=== PATIENT | female | born 1960 | race Caucasian/White ===

== ENCOUNTER 2024-11-15 14:20 | Outpatient (CLI) | payer MEDICARE, MEDICAID, SELFPAY ==
[2024-11-15 15:06] LABS: Hematocrit 26.4 % (37.0-47.0); Hemoglobin 8.5 g/dL (12.2-16.2); Mean Corpuscular HGB Conc 32.2 g/dL (31.8-35.4); Mean Corpuscular Hemoglobin 31.8 pg (27.0-31.2); Mean Corpuscular Volume 98.8 fl (81-99); Platelet Count 65 K/mm3 (142-424); Red Blood Count 2.67 M/mm3 (4.20-5.40); Red Cell Distribution Width 16.4 % (11.5-17.5); White Blood Count 3.8 K/mm3 (4.8-10.8)
[2024-11-15 15:14] LABS: INR 1.64 (0.9-1.1); Prothrombin Time 17.5 seconds (10.1-12.5)
[2024-11-15 15:30] LABS: Albumin Level 3.1 g/dl (3.5-5.0); Chloride 107 mmol/L (98-107); Potassium 3.6 mmoL/L (3.5-5.1); Sodium 138 mmol/L (136-145)
[2024-11-15 15:33] LABS: Alanine Aminotransferase 37 U/L (12-78); Albumin/Globulin Ratio 0.8 (1.1-1.8); Alkaline Phosphatase 288 U/L (38-126); Anion Gap 12.6 mEq/L (5-15); Aspartate Amino Transferase 91 U/L (14-36); Bilirubin,Total 2.5 mg/dl (0.2-1.3); Blood Urea Nitrogen 22 mg/dl (7-17); Calcium 8.8 mg/dl (8.4-10.2); Carbon Dioxide 22 mmol/L (22.0-30.0); Estimated Glomerular Filt Rate 35 ml/min (>60); GFR (African American) 43 ML/MIN (>60); Globulin 3.9 g/dL (1.3-3.2); Glucose 220 mg/dl (74-100)
== END 2024-11-15 23:59 | disposition home or self-care (01) ==
LOC: LAB 14:24
PROVIDERS: Visit Provider Internal Medicine
DX: K72.90 Hepatic failure, unspecified without coma (principal)
CPT/HCPCS: 36415; 80053; 85027; 85610; 85730

== ENCOUNTER 2025-06-23 17:21 | Emergency (ER) | payer MEDICARE, MEDICAID, SELFPAY ==
--- OUTSIDE RECORDS SUMMARY | 2014-04-02 05:08 | XMS_ITS | Continuity of Care Document ---
Author Organization [facility] Address [address] [place] [address] Phone Care Team Providers Care Mobile Application Engineer Name Role Phone Kristian Ayala MD Unavailable [...] Active Procedures Procedure Date REFRACTION OFFICE/OUTPATIENT VISIT, [facility] Advance Directives Directive Yes / No Effective Date File Name No Information Encounters Encounter Description Practice Location Reason(s) For Visit Diagnoses Date Provider OFFICE/OUTPATI ENT VISIT, [facility] , [address] [place] [address], [address], [place] tel:[phone] [place] [facility] diabetes (chief complaint)d ecreased vision (chief complaint) Diabetes Mellitus, Adult Onset, UncontrolledSenile nuclear sclerosis Jamie Townsend. [address] [facility], [place], [address]. tel:[phone] Family History Family Member Type Diagnosis Age At Onset Father Problem (finding) degenerative disorder o f macula Father Problem (finding) cataract Payers Payer name Insurance type Covered republican ID Annalee de leon(s) [facility] Community Plan CI [id number] Social History Type Description Quantity Date Captured [...]
--- OUTSIDE RECORDS SUMMARY | 2023-07-07 19:50 | XMS_ITS | Encounter Summary ---
Author Organization [facility] Address [address] [place] [address] Care Team Providers Care Geology Scientist Name Role Phone Taina Lyles APRN Primary Care Provider [phone] Reason for Referral * Hospital - Outpatient (Routine) - Closed Specialty Diagnoses / Procedures Referred By Eder zhu Referred To Contact Diagnoses JONATHAN (obstructive sleep apnea) Obesity (BMI 30-39.9) Nocturnal hypoxia Procedures Polysomnography 4 or More Parameters With CPAP Whitney Agarwal MD [address] [place] [address] Phone: tel: fax: Referral ID Status Reason Start Date Expiration Date Visits Re quested Visits Authorized [id number] Closed 04/14/2023 04/13/2024 1 1 Reason for Visit * Hospital - Outpatient (Routine) - Closed Specialty Diagnoses / Procedures Referred By Eder zhu Referred To Contact Diagnoses JONATHAN (obstructive sleep apnea) Obesity (BMI 30-39.9) Nocturnal hypoxia Procedures Polysomnography 4 or More Parameters With CPAP Whitney Agarwal MD [address] [place] [address] Phone: tel: fax: Referral ID Status Reason Start Date Expiration Date Visits Re quested Visits Authorized [id number] Closed 04/14/2023 04/13/2024 1 1 Encounter Details Date Type Department Care Team (Latest Contact Info) Description 07/07/2023 7:50 PM EDT Hospital Encounter [facility] PULPING MACHINE OPERATOR DIAG CTR [address] [place] [address] Whitney Agarwal MD [address] [facility] [address] [place] [address] JONATHAN (obstructive sleep apnea); Obesity [...] place to sleep or slept in a skilled nursing (including now)? No 12/01/2022 Abuse Screen Answer [...] SLEEP MEDICINE - 07/09/2023 12:[address] [facility] Pulmonary, Critical Care, and Sleep Medicine Whitney Agarwal M.D. [address] [facility] [address] Medical Office [address]. [address]. CPAP/BiPAP TITRATION INTERPRETATION Date of Study: 07/07/2023 [...] feel free to contact the office of [facility] Pulmonary, Critical Care and Sleep Medicine at [phone], if you have any questions about this [...] documented as of this encounter Care Teams Geology Scientist Relationship Specialty Start Date End Date Taina Lyles APRN PCP - General Nurse Practitioner 12/30/22 documented as of this encounter
--- OUTSIDE RECORDS SUMMARY | 2025-04-24 15:30 | XMS_ITS | Encounter Summary ---
Author Organization [facility] Address [address] [place] [address] Care Team Providers Care Signaling Design Engineer Name Role Phone Lea Fernando Unavailable [phone] Rachel Ray YARD ASSOCIATE Unavailable [phone] Alvarez Zimmer MD Primary Care Provider [phone] Reason for Visit * Reason Comments Diatetic foot care * Consultation (Routine) - Closed Specialty Diagnoses / Procedures Referred By Eder zhu Referred To Contact Podiatry Diagnoses Toe pain, left Type 2 diabetes mellitus with hyperosmolarity without coma, with long-term current use of insulin (CMS/HCC) Kacie Buckley, [place] [address] Phone: tel: fax: Referral ID Status Reason Start Date Expiration Date V isits Requested Visits Authorized [id number] Closed Specialty Services Required 01/25/2025 07/27/2026 1 1 Encounter Details Date Type Department Care Team (Late st Contact Info) Description 04/24/2025 3:30 PM EDT Consult [facility] [address] [place] [address] Sharif Moreno, DPM [address] [facility] [address] [place] [address] Diabetic peripheral neuropathy (CMS/HCC) (Primary Dx); Difficulty walking; Onychodystrophy Social History Tobacco Use Types Packs/Day Years Used Date Smoking Tobacco: Never Passive Smoke Exposure: Never Smokeless Tobacco: Never Tobacco Cessation:Counseling Given: Not Answered Alcohol Use Standard Drinks/Week Comments Not Currently 0 (1 standard drink = 0.6 oz pur e alcohol) Humiliation, Afraid, Rape, and Kick questionnair e Answer Date Recorded Within the last year, have y ou been afraid of your partner or ex-partner? No 03/06/2025 Within the last year, have y ou been humiliated or emotionally abused in other ways by your partner or ex-partner? No Within the last year, have y ou been kicked, hit, slapped, or otherwise physically hurt by your partner or ex-partner? No 03/06/2025 Within the last year, have y ou been raped or forced to have any kind of sexual activity by your partner or ex-partner? No 03/06/2025 Social Connection and Isolation Panel Answer Date Recorded In a typical week, how many times do you talk on the phone with family, friends, or neighbors? Three times a week 01/10/2025 How often do you get togethe r with friends or relatives? Three times a week 01/10/2025 How often do you attend [facility] or latter-day services? Patient unable to answer 01/10/2025 Do you belong to any clubs o r organizations such as islam groups, unions, fraternal or athletic groups, or school groups? Patient unable to answer 01/10/2025 How often do you attend meet ings of the clubs or organizations you belong to? Patient unable to answer 01/10/2025 Are you , , di vorced, , never , or living with a partner? 01/10/2025 AUDIT-C Answer Date Recorded Q1: How often do you have a drink containing alcohol? Patient unable to answer 01/10/2025 Q2: How many drinks containi ng alcohol do you have on a typical day when you are drinking? Patient does not drink Q3: How often do you have si x or more drinks on one occasion? Patient unable to answer 01/10/2025 Overall Financial Resource Strain (CARDIA) Answe r Date Recorded How hard is it for you to pa y for the very basics like food, housing, medical care, and heating? Not very hard 01/10/2025 PHQ-2 Answer Date Recorded Patient Health Questionnaire-2 Score 2 04/10/2025 [facility] Occupat ional Health - Occupational Stress Questionnaire Answer Date Recorded Do you feel stress - tense, restless, nervous, or anxious, or unable to sleep at night because your mind is troubled all the time - these days? Not at all 01/10/2025 Exercise Vital Sign Answer Date Recorde d On average, how many days pe r week do you engage in moderate to strenuous exercise (like a brisk walk)? 0 days 01/10/2025 On average, how many minutes do you engage in exercise at this level? 0 min 01/10/2025 Hunger Vital Sign Answer Date Recorded Within the past 12 months, y ou worried that your food would run out before you got the money to buy more. Never true 03/06/20 Within the past 12 months, t he food you bought just didn't last and you didn't have money to get more. Never true 03/06/2025 PRAPARE - Transportation Answer Date Re corded In the past 12 months, has l ack of transportation kept you from medical appointments or from getting medications? No 02/19 In the past 12 months, has l ack of transportation kept you from meetings, work, or from getting things needed for daily living? No 03/06/2025 Housing Stability Vital Sign Answer Rajesh e Recorded In the last 12 months, was t here a time when you were not able to pay the mortgage or rent on time? No 08/29/2024 Number of Places Lived in the Last Year Not on f ile 08/29/2024 In the last 12 months, was t here a time when you did not have a steady place to sleep or slept in a chcf (including now)? Yes 08/29/2024 PHQ-9 Answer Date Recorded Patient Health Questionnaire-9 Score 0 03/06/2025 Housing Stability Vital Sign Answer Rajesh e Recorded In the last 12 months, was t here a time when you were not able to pay the mortgage or rent on time? No 03/06/2025 In the past 12 months, how m any times have you moved where you were living? 1 03/06/2025 At any time in the past 12 m [facility], were you homeless or living in a chcf (including now)? No 03/06/2025 CAGE ASSESSMENT Answer Date Recorded Cage unable to access Not on file 10/22/2024 Cage max number of drinks Not on file 2023 Cage Beverages a week Not on file 10/22/2024 Have you ever felt you should CUT down on your d rinking? 0 10/22/2024 Have you been ANNOYED by people criticizing your drinking? 0 10/22/2024 Have you felt GUILTY about your drinking? 0 10/22/2024 Have you had a drink first t kennedy in the morning ([employer]) to steady your nerves or to get rid of a hangover? 0 10/22/2024 CAGE Questionnaire Score 0 024 Utilities Answer Date Recorded In the past 12 months has th STYLIGHT, gas, oil, or water company threatened to shut off services in your home? No 03/06/2025 Education Answer Date Recorded What is the highest level of school you have completed or the highest degree you have received? Associate degree: occupational, technical, or vocational program 08/29/2024 Comments No Sex and Gender Information Value Date Recorded Sex Assigned at Female 06/22/2022 9:33 AM EDT Legal Sex Female 8:01 PM EDT Gender Identity Female 06/22/2022 9:33 AM EDT Sexual Orientation Straight 06/22/2022 9: 33 AM EDT Occupation Industry Job Start Date Job End Date Disability Not on file Not on file Not on file documented as of this encounter Last Filed Vital Signs Vital Sign Reading Time Taken Comments Blood Pressure 120/70 04/24/2025 3:10 PM EDT Pulse 64 04/24/2025 3:10 PM EDT Temperature - - Respiratory Rate - - Oxygen Saturation - - Inhaled Oxygen Concentration - - Weight 77.6 kg (171 lb 1.2 oz) 04/24/2025 3:10 P M EDT Height 165.1 cm (5' 5 ) 04/24/2025 3:10 PM EDT Body Mass Index 28.47 04/24/2025 3:10 PM EDT documented in this encounter Miscellaneous Notes * Progress Notes - Sharif Moreno DPM - 04/24/2025 3:30 PM EDT Subjective Patient ID: Gabi Zimmer is a 64 y.o. female [facility] HPI Patient here for foot check. 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 Has never had any ulcers. Previously had a spot on her left big toe that has since disappeared. Has difficulty trimming nails. Notes some neuropathy. Last Reported A1C: Lab Results Component Value Date HGBA1C 6.2 (H) 01/08/2025 Last visit with Kacie Buckley APRN, on 01/08/25 ROS: Otherwise negative or noncontributory to chief complaint except as noted in history of present illness Past Medical History[1] Current Medications[2] No surgery found No surgery found Objective Psychological: Appropriate mood and affect HENT: Normal Eyes: EOMI Cardiac: Well perfused, extremities pink Respiratory: nonlabored respirations on room air, symmetric chest rise and fall. .Physical Exam: MSK: Tenderness: Absent to: Any pedal structure Gait:Normal, unassisted Muscle testin/5 for all pedal musculature b/l ROM: WNL for all major pedal joints Deformity: No gross deformity noted Neuro: Light touch Intact Protective sensation intact to all areas with use of monofilament. Vibratory sensation Intact Vasc: DP and PT pulses b/l: Palpable CFT is Brisk to all present digits Edema Absent Derm: Skin is grossly warm and dry No open wounds noted. Nails are:thickened, dystrophic, and discolored Hair: is absent on the foot Skin changes: thin, shiny, and atrophic ASSESSMENT: Encounter Diagnoses: Diabetic peripheral neuropathy (CMS/HCC) Difficulty walking Onychodystrophy PLAN: Rx for capsacin Talk to endo/primary for new DM shoe form RTC in 6 mo. Nails debrided x 10 .Procedure: At risk nail care. Patient would benefit from nail debridement today. Consent was obtained verbally by the patient. Risks and benefits were discussed with the patient. Possible risks include: Bleeding, swelling, infection. Benefits include nail deformity correction, reducing risk of infection. 10 nails debrided with sterile nail nippers using aseptic technique. Nails filed to ensure no residual roughness. Patient tolerated procedure well with no complications. Lengthy diabetes education/counseling was conducted, which involved a discussion about neuropathy and its implications and symptoms. Patient was encouraged to strictly monitor daily blood glucose andfeet for any concerning changes. Encouraged the use of supportive shoe gear. _ Patient demonstrated reasonable understanding of the current condition, treatment options, and prognosis. All questions were welcomed and answered to the patient's satisfaction. This note was partially generated using [employer] Direct system, and there may be some incorrect words, spellings, and punctuation that were not noted in checking the note before saving. [1] Past Medical History: Diagnosis Date ADHD (attention deficit hyperactivity disorder) Allergic Anxiety disorder, unspecified Anxiety Bleeding gums Blood in urine Cataract Chronic kidney disease Cirrhosis (CMS/HCC) Colon cancer screening 09/20/2019 Added automatically from request for surgery [id number] Coronary artery disease Depression 1995 Diabetes mellitus type 2 in obese 04/22/2015 Diabetic nephropathy (CMS/HCC) Dry mouth GERD (gastroesophageal reflux disease) Headache Heart murmur HL (hearing loss) Hypoparathyroidism Inflammatory bowel disease Irritable bowel syndrome Jaw pain Obesity Osteoporosis Peptic ulceration Personal history of other diseases of the digestive system History of hepatic disease Personal history of other diseases of the digestive system History of stomach ulcers Personal history of other diseases of the nervous system and sense organs History of sleep apnea Personal history of other endocrine, nutritional and metabolic disease History of diabetes mellitus Personal history of other mental and behavioral disorders History of depression Personal history of urinary (tract) infections History of bladder infections Pre-liver transplant, listed Pure hypercholesterolemia, unspecified High cholesterol Sleep apnea Thyroid condition Type 2 diabetes mellitus Unspecified asthma, uncomplicated Asthma Unspecified osteoarthritis, unspecified site Arthritis [2] Current Outpatient Medications: Abaloparatide (Tymlos) 3120 MCG/1.56ML solution pen-injector, Inject 80 mcg under the skin daily., Disp: 1.56 mL, Rfl: 2 azelastine (Astelin) 0.1 % nasal spray, Administer 1 spray into each nostril 2 times a day. Use in each nostril as directed, Disp: 30 mL, Rfl: 12 B-D ULTRAFINE III SHORT PEN 31G X 8 MM [facility], , Disp: , Rfl: Blood Glucose Monitoring Suppl (Blood Glucose Monitor System) w/Device kit, Test blood sugars twicea day. Dx E11.65, Disp: 1 kit, Rfl: 0 calcitriol (Rocaltrol) 0.25 MCG capsule, Take 1 capsule by mouth daily., Disp: 30 capsule, Rfl: 2 calcium carbonate EX (Tums E-X) 750 MG chewable tablet, Chew 1 tablet (750 mg) 1 (one) time each day., Disp: , Rfl: cetirizine (ZyrTEC) 10 MG tablet, Take 1 tablet by mouth daily., Disp: 30 tablet, Rfl: 2 cholecalciferol (Vitamin D-3) 25 MCG (1000 UT) tablet, Take 1 tablet by mouth daily., Disp: 90 tablet, Rfl: 2 ciprofloxacin (Cipro) 500 MG tablet, Take 1 tablet by mouth daily., Disp: 90 tablet, Rfl: 1 ergocalciferol (Vitamin D-2) 1.25 MG (05889 UT) capsule, Take 1 capsule by mouth 1 time per week., Disp: 8 capsule, Rfl: 3 fluticasone (Flonase) 50 MCG/ACT nasal spray, Administer 1 spray into each nostril daily. Shake gently. Before first use, prime pump. After use, clean tip and replace cap., Disp: 16 g, Rfl: 0 furosemide (Lasix) 20 MG tablet, Take 1 tablet (20 mg) by mouth 1 (one) time each day., Disp: 30 tablet, Rfl: 2 glucose blood test strip, Use to test blood sugars twice a day E11.65, Disp: 100 each, Rfl: 1 insulin aspart (NovoLOG Flexpen) 100 UNIT/ML injection, Inject 24 units before meals, 12 units before small meals/snacks plus 4 units for every 50 > 150. MDD: 100 units, Disp: , Rfl: Insulin Pen Needle 31G X 6 MM misc, 1 each daily. Use to administer Tymlos daily, Disp: 100 each, Rfl: 11 lactulose (Chronulac) 10 GM/15ML solution, Take 30 mL by mouth in the morning and 30 mL in the evening and 30 mL before bedtime., Disp: 2700 mL, Rfl: 3 Lancets misc, Use to test blood sugars twice a day E11.65, Disp: 100 each, Rfl: 1 Lantus SoloStar 100 UNIT/ML injection pen, Inject 52 units every morning. Titrate as directed. MDD:60 units, Disp: , Rfl: Magnesium Oxide, Laxative, 500 MG tablet, Take 1 tablet by mouth daily., Disp: 90 tablet, Rfl: 3 midodrine (Proamatine) 5 MG tablet, Take 3 tablets by mouth 3 times a day., Disp: 270 tablet, Rfl: 2 Multiple Vitamins-Minerals (COMPLETE WOMENS PO), Take 1 tablet by mouth in the morning., Disp: , Rfl: nutrional drink glucose control (Boost Glucose Control) liquid liquid, Take 250 mL by mouth 3 (three) times a day. Drink 1 supplement up to 3 times a day or As Directed as a nutritional supplement. Flavor preference: per patient. Please dispense up to 4 cases at a time per patient request, Disp: 66082 mL, Rfl: 11 omeprazole (PriLOSEC) [address] capsule, Take 1 capsule by mouth 2 times a day. Do not crush or chew., Disp: 60 capsule, Rfl: 1 ondansetron ODT (Zofran-ODT) 8 MG disintegrating tablet, Dissolve 1 tablet on the tongue every 8 hours as needed for nausea or vomiting., Disp: 30 tablet, Rfl: 1 pen needle, diabetic (BD Pen Needle Micro U/F) 32G X 6 MM misc, Use to inject insulin 4 times per day., Disp: 400 each, Rfl: 3 rifAXIMin (Xifaxan) 550 MG tablet, Take 1 tablet by mouth 2 times a day., Disp: , Rfl: rosuvastatin (Crestor) 20 MG tablet, Take 1 tablet by mouth nightly., Disp: , Rfl: spironolactone (Aldactone) 50 MG tablet, Take 1 tablet by mouth daily., Disp: 30 each, Rfl: 2 [place] 0.6 MG/0.6ML solution auto-injector, Inject 0.6 mg under the skin 1 time as needed (for extreme hypoglycemia) for up to 1 dose., Disp: 0.6 mL, Rfl: 2 zinc sulfate (Zincate) 220 (50 Zn) MG capsule, Take 1 capsule by mouth in the morning and 1 capsulebefore bedtime., Disp: 60 capsule, Rfl: 2 capsaicin (Zostrix) 0.025 % cream, Apply thin layer to feet nightly WITH GLOVES, Disp: 56.6 g, Rfl:1 documented in this encounter Plan of Treatment Upcoming Encounters Date Type Department Care Team (Late st Contact Info) Description 06/27/2025 9:30 AM EDT Appointment [facility] [address] [place] [address] 06/27/2025 10:30 AM EDT Appointment [facility] [address] [place] [address] 07/04/2025 10:30 AM EDT Appointment [facility] [address] [place] [address] 07/04/2025 11:30 AM EDT Appointment [facility] [address] [place] [address] 07/09/2025 2:40 PM EDT Office Visit [facility] [address] [facility], [address] [place] [address] Ar Dominique MD [address] [place] [address] 07/11/2025 10:30 AM EDT Appointment [facility] [address] [place] [address] 07/11/2025 11:30 AM EDT Appointment [facility] [address] [place] [address] 07/18/2025 10:30 AM EDT Appointment [facility] [address] [place] [address] 07/18/2025 11:30 AM EDT Appointment [facility] [address] [place] [address] 07/25/2025 10:30 AM EDT Appointment [facility] [address] [place] [address] 07/25/2025 11:30 AM EDT Appointment [facility] [address] [place] [address] 07/31/2025 9:00 AM EDT Office Visit [facility] [address] [place] [address] Alvarez Zimmer MD [address] [place] [address] 08/20/2025 9:30 AM EDT Clinical Support [facility] [place] [address] [place] [address] 08/20/2025 10:30 AM EDT Social Work [facility] [place] [address] [place] [address] [place] [address] 08/20/2025 11:00 AM EDT Office Visit [facility] [place] [address] [place] [address] Jude Duque MD [address] [place] [address] 10/30/2025 1:20 PM EST [facility] [address] [place] [address] Sharif Moreno, ROSY [address] [place] [address] documented as of this encounter Visit Diagnoses Diagnosis Diabetic peripheral neuropathy (CMS/HCC)- Primary Type II or unspecified type diabetes mellitus with neurological manifestations, not stated as uncontrolled Difficulty walking Difficulty in walking Onychodystrophy Other specified disease of nail documented in this encounter Additional Health Concerns Assessment Noted Time PHQ-9 Depression Total Score: 0 03/06/20 25 1:21 PM EDT A fall risk assessment has been complete d for the patient 04/10/2025 10:50 AM EDT A Body Mass Index follow-up plan has been documented for the patient 04/24/2025 3:41 PM EDT documented as of this encounter Care Teams Signaling Design Engineer Relationship Specialty Start Date End Date Alvarez Zimmer MD [address] [place] [address] PCP - General Family Medicine 12/07/24 Lea Fernando [address] [place] [address] Medical Staff Services Manager Endocrinology 08/29/24 Rachel Ray, YARD ASSOCIATE [address] [facility] [address] [place] [address] Nurse Practitioner Gastroenterology 09/24/24 documented as of this encounter
--- OUTSIDE RECORDS SUMMARY | 2025-04-25 09:30 | XMS_ITS | Encounter Summary ---
Author Organization [facility] Address [address] [place] [address] Care Team Providers Care Statistical Clerk Name Role Phone Lea Fernando Unavailable [phone] Rachel Ray FARM CREW LEADER Unavailable [phone] Alvarez Zimmer MD Primary Care Provider [phone] Reason for Referral * Imaging (Routine) - Closed Specialty Diagnoses / Procedures Referred By Eder zhu Referred To Contact Radiology Diagnoses Other ascites Procedures US Guided Abdominal Paracentesis Marianna Gordon APRN [address] [place] [address] Phone: tel: fax: Referral ID Status Reason Start Date Expiration Date Visits Re quested Visits Authorized [id number] Closed 04/18/2025 10/18/2026 1 1 * Clinic-Administered Medication (Routine) - Closed Specialty Diagnoses / Procedures Referred By Eder zhu Referred To Contact Diagnoses Other ascites Procedures VA ABDOM PARACENTESIS DX/THER W IMAGING GUIDANCE Blayne Phoenix PA [address] [place] [address] Phone: tel: fax: [facility] [address] [place] [address] Phone: tel: fax: Referral ID Status Reason Start Date Expiration Date Visits Re quested Visits Authorized [id number] Closed 04/25/2025 10/25/2026 1 1 Reason for Visit * Imaging (Routine) - Closed Specialty Diagnoses / Procedures Referred By Eder zhu Referred To Contact Radiology Diagnoses Other ascites Procedures US Guided Abdominal Paracentesis GabrieladeloresMarianna osorio, FARM CREW LEADER [address] [place] [address] Phone: tel: fax: Referral ID Status Reason Start Date Expiration Date Visits Re quested Visits Authorized [id number] Closed 04/18/2025 10/18/2026 1 1 Encounter Details Date Type Department Care Team (Latest Contact Info) Description 04/25/2025 9:30 AM EDT - 04/25/2025 11:59 PM EDT Hospital Encounter [facility] Interventional Radiology [address] [place] [address] Golden Wilhelm, RN MICU 9-T1 AND T2 [...] How often do you attend chur or congregational services? Patient unable to answer 01/10/2025 Do you belong to any clubs o r organizations such as taoism groups, unions, fraternal or athletic groups, or [...] Recorded Patient Health Questionnaire-2 Score 2 04/10/2025 [facility] - Occupational Stress [...] or slept in a intermediate (including now)? Yes 08/29/2024 PHQ-9 Answer Date [...] time in the past 12 m [facility], were you homeless or living in a intermediate (including now)? No 03/06/2025 CAGE ASSESSMENT Answer [...] drink first t kennedy in the morning (EYE-DIETARY COOK) to steady your nerves or to get [...] call: Vascular and Interventional Radiology Clinic at [phone] Tuesday - Tuesday 8:00 AM to 4:30 PM After hours, weekends, and holidays please call [phone] and ask for the Interventional Radiology provider/Resident on-call Intervention Radiology Appointments: If you need to reschedule a procedure, please call our Schedulers at [phone], option 4. If you need to schedule or reschedule a clinic appointment, please call [phone]. [facility] Vascular and Interventional Radiology Clinic [facility] [address] [facility] [place] [address] documented in this encounter Medications at Time [...] 1 03/01/2025 ergocalciferol (Vitamin D-2) 1.25 MG (16056 UT) capsuleIndications: Vitamin D deficiency Take 1 [...] hyperglycemia, with long-term current use of insulin ([facility]) Inject 0.6 mg under the skin [...] cases at a time per patient request 80407 mL 11 10/02/2024 05/07/20 25 omeprazole (PriLOSEC) [...] from the original note were not included. 99[address] Discharge Instructions for Paracentesis Paracentesis is a [...] fainting. Last Reviewed Date: 2025 00:00:00 ?? [id number] [employer]. All rights reserved. This information is not [...] 09/20/2019 Added automatically from request for surgery [id number] Coronary artery disease Depression 1995 Diabetes mellitus [...] Total DLP (Dose-Length Product): 1722.82 mGy.cm (accession [id number]), 1722.82 mGy.cm (accession [id number]). Please note: The reported value represents the [...] no aneurysm of either internal carotid artery. [place] of [place] and Major Peripheral Branches: There [...] is no recent study available for direct makk-sq-iotc comparison. Assessment & Plan: Decompensated cirrhosis Ascites [...] care of this patient. Maria Dolores Ontiveros, FARM CREW LEADER, DNP Interventional Radiology [phone] [1] Past Surgical History: Procedure Laterality Date APPENDECTOMY 1979 BLADDER SURGERY N/A Bladder surgery from [facility] BREAST BIOPSY 2011 BREAST SURGERY 2009 BUNIONECTOMY Right CATARACT EXTRACTION Bilateral 2016 CHOLECYSTECTOMY 1979 ESOPHAGOGASTRODUODENOSCOPY HYSTERECTOMY N/A Hysterectomy from [facility] KNEE SURGERY Bilateral ORAL SURGERY N/A Oral surgery from [facility] OTHER SURGICAL HISTORY 2014 ROOT CANAL WISDOM [...] at a time per patient request, Disp: 27307 mL, Rfl: 11 omeprazole (PriLOSEC) 40 MG [...] Appointment [facility] Interventional Radiology [address] [place] [address] 06/27/2025 10:30 AM EDT Appointment [facility] Inter[facility] Radiology [address] [place] [address] 07/04/2025 10:30 AM EDT Appointment [facility] Inter[facility] Radiology [address] [place] [address] 07/04/2025 11:30 AM EDT Appointment [facility] Inter[facility] Radiology [address] [place] [address] 07/09/2025 2:40 PM EDT Office Visit Professional [facility] [address], [address] [place] [address] Ar Dominique MD [address] [place] [address] 07/11/2025 10:30 AM EDT Appointment [facility]iology [address] [place] [address] 07/11/2025 11:30 AM EDT Appointment [facility]iology [address] [place] [address] 07/18/2025 10:30 AM EDT Appointment [facility] Inter[facility]iology [address] [place] [address] 07/18/2025 11:30 AM EDT Appointment [facility] [address] [place] [address] 07/25/2025 10:30 AM EDT Appointment [facility]iology [address] [place] [address] 07/25/2025 11:30 AM EDT Appointment [facility] Inter[facility]iology [address] [place] [address] 07/31/2025 9:00 AM EDT Office Visit [facility] [address] [place] [address] Alvarez Zimmer MD [address] [place] [address] 08/20/2025 9:30 AM EDT Clinical Support [facility] [address] [place] [address] 08/20/2025 10:30 AM EDT Social Work [facility] [address] [place] [address] [place] [address] 08/20/2025 11:00 AM EDT Office Visit [facility] [address] [place] [address] Jude Duque MD [address] [place] [address] 10/30/2025 1:20 PM EST Office Visit [facility] [address] [place] [address] Sharif Moreno S, DPM [address] [place] [address] documented as of this encounter [...] today for paracentesis and right thoracentesis. TECHNIQUE: Food Quality Tester: Maria Dolores Ontiveros APRN Secondary Shaper Setter: None. Nurse: Toribio Technologist: Lilliana Phillips Dose: [...] presenting today for paracentesis and rightthoracentesis. TECHNIQUE: Food Quality Tester: Maria Dolores Ontiveros APRN Secondary Shaper Setter: None. Nurse: Toribio Technologist: Lilliana Phillips Dose: [...] today for paracentesis and right thoracentesis. TECHNIQUE: Food Quality Tester: Maria Dolores Ontiveros APRN Secondary Shaper Setter: None. Nurse: Toribio Technologist: Lilliana Phillips Dose: [...] presenting today for paracentesis and rightthoracentesis. TECHNIQUE: Food Quality Tester: Maria Dolores Ontiveros APRN Secondary Shaper Setter: None. Nurse: Toribio Technologist: Lilliana Phillips Dose: [...] LAB HEMATOLOGY METHOD 04/26/2025 4:05 PM EDT [facility] Specimen Source, Body Fluid Peritoneal Fluid LAB HEMATOLOGY METHOD 04/26/2025 4:05 PM EDT [facility] Clinical Diagnosis, Body Fluid Ascites secondary to decompensated cirrhosis LAB HEMATOLOGY METHOD 04/26/2025 4:05 PM EDT [facility] Interpretation , Body Fluid No evidence of malignancy; chronic inflammatory cells, lymphocytosis. light blood A resident was involved in the service. I attest I examined the relevant preparations for the specimens and confirmed the diagnosis or interpretation. 04/26/2025 4:05 PM EDT [facility] Pathologist Signature, Body Fluid 04/26/2025 4:05 PM EDT [facility] Comment:Reviewed by: Iza Blue MD LAB CP ASR DISCLAIMER Yes 04/26/2025 4:05 PM EDT [facility] Body Fluid Peritoneal fluid / Unknown Non-blood Collection / Unknown 04/25/2025 11:18 AM EDT 04/25/2025 12:38 PM EDT Maria Dolores Ontiveros APRN, DNP LAB BODY FLUIDS AND STOO LS ORDERABLES Final Result Performing Organization Address [facility] Co de Phone Number [facility] [address] [place] [address] * Protein - Ascites (04/25/2025 11:18 AM EDT) Total Protein, Fluid 1 g/dL 04/25/2025 1:22 PM EDT [facility] Ascites Peritoneal cavity structure / Unknown 04/25/2025 11:18 AM EDT 04/25/2025 12:38 PM EDT Narrative [facility] - 04/25/2025 1:22 PM EDT This test was developed and its performance characteristics determined by [facility]. The U.S. Food and Drug [...] LS ORDERABLES Final Result Performing Organization Address [facility] Co de Phone Number [facility] [address] [place] [address] * (ABNORMAL) Body Fluid Cell Count With Diff - Ascites (04/25/2025 11:18 AM EDT) Color, Body fluid [place] LAB HEMATOLOGY METHOD 04/25/2025 5:23 PM EDT [facility] Appearance, Body fluid Cloudy(A) LAB HEMATOLOGY METHOD 04/25/2025 5:23 PM EDT [facility] Volume, Body fluid 9.0 cc LAB HEMATOLOGY METHOD 04/25/2025 5:23 PM EDT [facility] Fluid Container Tube 3 LAB HEMATOLOGY METHOD 04/25/2025 5:23 PM EDT [facility] Red Blood Cell Count, Body fluid 9,000 uL LAB HEMATOLOGY METHOD 04/25/2025 5:23 PM EDT [facility] Total Nucleated Cell Count, Body fluid 222 uL LAB HEMATOLOGY METHOD 04/25/2025 5:23 PM EDT [facility] Neutrophils %, Body fluid 2 % LAB HEMATOLOGY METHOD 04/25/2025 5:23 PM EDT [facility] Lymphocytes %, Body fluid 93 % LAB HEMATOLOGY METHOD 04/25/2025 5:23 PM EDT [facility] Monocytes/Macro phages %, Body fluid 3 % LAB HEMATOLOGY METHOD 04/25/2025 5:23 PM EDT [facility] Eosinophils %, Body fluid 0 % LAB HEMATOLOGY METHOD 04/25/2025 5:23 PM EDT [facility] Lining/Mesothel ial Cells %, Body fluid 2 % LAB HEMATOLOGY METHOD 04/25/2025 5:23 PM EDT [facility] Neutrophils Absolute (PMN), Body fluid 4 uL LAB HEMATOLOGY METHOD 04/25/2025 5:23 PM EDT [facility] Lymphocytes Absolute, Body fluid 206 uL LAB HEMATOLOGY METHOD 04/25/2025 5:23 PM EDT [facility] Monocytes/Macro phages Absolute, Body fluid 7 uL LAB HEMATOLOGY METHOD 04/25/2025 5:23 PM EDT [facility] Eosinophils Absolute, Body fluid 0 uL LAB HEMATOLOGY METHOD 04/25/2025 5:23 PM EDT [facility] Basophils Absolute, Body fluid 0 uL LAB HEMATOLOGY METHOD 04/25/2025 5:23 PM EDT [facility] Lining/Mesothel ial Cells Absolute, Body fluid 4 uL LAB HEMATOLOGY METHOD 04/25/2025 5:23 PM EDT [facility] Comment, Body fluid None LAB HEMATOLOGY METHOD 04/25/2025 5:23 PM EDT [facility] Basophils %, Body fluid 0 % LAB HEMATOLOGY METHOD 04/25/2025 5:23 PM EDT [facility] Body Fluid Peritoneal fluid / Unknown Non-blood Collection / Unknown 04/25/2025 11:18 AM EDT 04/25/2025 12:38 PM EDT Maria Dolores Ontivreos APRN, DNP LAB BODY FLUIDS AND STOOLS ORDERABLES NO SPECIMEN TYPE/SOURCE Final Result [facility] [address] [place] [address] documented in this encounter Visit Diagnoses Diagnosis [...] documented as of this encounter Care Teams Statistical Clerk Relationship Specialty Start Date End Date Alvarez Zimmer MD [address] [place] [address] PCP - General Family Medicine 12/07/24 Lea Fernando [address] [facility] [address] [place] [address] Senior It Architect Endocrinology 08/29/24 Rachel Ray APRN [address] [phone] Nurse Practitioner Gastroenterology 09/24/24 documented as of this encounter
--- OUTSIDE RECORDS SUMMARY | 2025-05-02 09:16 | XMS_ITS | Encounter Summary ---
Author Organization [facility] Address [address] [id number] Care Team Providers Care Airport Operations Coordinator Name Role Phone Lea Fernando Unavailable [phone] Rachel Ray CHEMICAL MILLING PROCESSOR Unavailable [phone] Alvarez Zimmer MD Primary Care Provider [phone] Reason for Referral * Clinic-Administered Medication (Routine) - Closed Specialty Diagnoses / Procedures Referred By Eder zhu Referred To Contact Diagnoses Other ascites Procedures NV ABDOM PARACENTESIS DX/THER W IMAGING GUIDANCE Shaniqua Mccurdy APRN [address] [place] [address] Phone: tel: fax: [facility] [address] [place] [address] Phone: tel: fax: Referral ID Status Reason Start Date Expiration Date Visits Re quested Visits Authorized [id number] Closed 05/02/2025 11/01/2026 1 1 * Imaging (Routine) - Closed Specialty Diagnoses / Procedures Referred By Eder zhu Referred To Contact Radiology Diagnoses Other ascites Procedures US Guided Abdominal Paracentesis Marianna Gordon APRN [address] [place] [address] Phone: tel: fax: Referral ID Status Reason Start Date Expiration Date Visits Re quested Visits Authorized [id number] Closed 04/18/2025 10/18/2026 1 1 Reason for Visit * Imaging (Routine) - Closed Specialty Diagnoses / Procedures Referred By Eder zhu Referred To Contact Radiology Diagnoses Other ascites Procedures US Guided Abdominal Paracentesis Marianna Gordon APRN [address] [place] [address] Phone: tel: fax: Referral ID Status Reason Start Date Expiration Date Visits Re quested Visits Authorized [id number] Closed 04/18/2025 10/18/2026 1 1 Encounter Details Date Type Department Care Team (Latest Contact Info) Description 05/02/2025 9:16 AM EDT - 05/02/2025 11:59 PM EDT Hospital Encounter [facility] Interventional Radiology [address] [place] [address] Allison Mckee Other ascites Discharge Disposition: Home [...] often do you attend chur ch or denominational services? Patient unable to answer 01/10/2025 Do you belong to any clubs o r organizations such as yazdanism groups, unions, fraternal or athletic groups, or [...] Recorded Patient Health Questionnaire-2 Score 2 04/10/2025 [facility] - Occupational Stress [...] place to sleep or slept in a penitentiary (including now)? Yes 08/29/2024 PHQ-9 Answer Date [...] any time in the past 12 [address] [place], were you homeless or living in a penitentiary (including now)? No 03/06/2025 CAGE ASSESSMENT Answer [...] drink first t kennedy in the morning (EYE-ENGINEER ASSISTANT) to steady your nerves or to get [...] kg (179 lb 3.7 oz) 05/02/2025 9:27 AM EDT Height 165.1 cm (5' 5 ) [...] 1 03/01/2025 ergocalciferol (Vitamin D-2) 1.25 MG (19126 UT) capsuleIndications: Vitamin D deficiency Take 1 [...] Tymlos daily 100 each 11 04/22/[address] [facility] Use to test blood sugars twice a [...] Needle Micro U/F) 32G X [address] [facility] Use to inject insulin 4 times per [...] cases at a time per patient request 32031 mL 11 10/02/2024 05/07/20 25 omeprazole (PriLOSEC) [...] Total DLP (Dose-Length Product): 1722.82 mGy.cm (accession [id number]), 1722.82 mGy.cm (accession [id number]). Please note: The reported value represents the [...] no aneurysm of either internal carotid artery. [place] and Major Peripheral Branches: There [...] COMMUNICATION: Per this written report Drafted by Bair Aguillon MD on 04/18/2025 1:16 PM Final [...] is no recent study available for direct [id number] comparison. 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 Shaniqua Mccurdy, CHEMICAL MILLING PROCESSOR Interventional Radiology [phone] [1] Past Medical History: Diagnosis Date ADHD (attention deficit hyperactivity disorder) Allergic Anxiety disorder, unspecified Anxiety Bleeding gums Blood in urine Cataract Chronic kidney disease Cirrhosis (CMS/HCC) Colon cancer screening 09/20/2019 Added automatically from request for surgery [id number] Coronary artery disease Depression 1995 Diabetes mellitus [...] 1979 BLADDER SURGERY N/A Bladder surgery from [email or web address] BREAST BIOPSY 2011 BREAST SURGERY 2010 BUNIONECTOMY Right CATARACT EXTRACTION Bilateral 2016 CHOLECYSTECTOMY 1979 ESOPHAGOGASTRODUODENOSCOPY HYSTERECTOMY N/A Hysterectomy from [email or web address] KNEE SURGERY Bilateral ORAL SURGERY N/A Oral surgery from [email or web address] OTHER SURGICAL HISTORY 2015 ROOT CANAL WISDOM [...] Rfl: 1 ergocalciferol (Vitamin D-2) 1.25 MG (50981 UT) capsule, Take 1 capsule by mouth [...] at a time per patient request, Disp: 33448 mL, Rfl: 11 omeprazole (PriLOSEC) 40 MG [...] mL, 10 mL, Infiltration, Once, Marianna Gordon, CHEMICAL MILLING PROCESSOR Insert peripheral IV, , , Once AND Saline lock IV, , , Once AND sodium chloride 0.9 % flush10 mL, 10 mL, Intravenous, q12h AND sodium chloride 0.9 % flush 10 mL, 10 mL, Intravenous, PRN,Marianna Gordon CHEMICAL MILLING PROCESSOR * Allison Mortensen - 05/02/2025 9:56 AM EDT Images from the original note were not included. [id number] Discharge Instructions for Paracentesis Paracentesis is a [...] fainting. Last Reviewed Date: 2025 00:00:00 ?? [id number] [employer]. All rights reserved. This information is not intended as a substitute for professional medical care. Always follow your healthcare professional's instructions. documented in this encounter Plan of Treatment Upcoming Encounters Date Type Department Care Team (Late st Contact Info) Description 06/27/2025 9:30 AM EDT Appointment [facility] [address] [place] [address] 06/27/2025 10:30 AM EDT Appointment [facility] [address] [place] [address] 07/04/2025 10:30 AM EDT Appointment [facility] [address] [place] [address] 07/04/2025 11:30 AM EDT Appointment [facility] [address] [place] [address] 07/09/2025 2:40 PM EDT Office Visit [facility] [address], [address] [place] [address] Ar Dominique MD [address] [place] [address] 07/11/2025 10:30 AM EDT Appointment [facility] [address] [place] [address] 07/11/2025 11:30 AM EDT Appointment [facility] [address] [place] [address] 07/18/2025 10:30 AM EDT Appointment [facility] [address] [place] [address] 07/18/2025 11:30 AM EDT Appointment [facility] [address] [place] [address] 07/25/2025 10:30 AM EDT Appointment [facility] [address] [place] [address] 07/25/2025 11:30 AM EDT Appointment [facility] [address] [place] [address] 07/31/2025 9:00 AM EDT Office Visit [facility] [address] [place] [address] Alvarez Zimmer MD [address] [place] [address] 08/20/2025 9:30 AM EDT Clinical Support [facility] [address] [facility] [address] [place] [address] 08/20/2025 10:30 AM EDT Social Work [facility] [address] [place] [address] Deysi Ortega [place], [place] [id number] 08/20/2025 11:00 AM EDT Office Visit [facility] [place] [address] [place] [address] Jude Duque MD [address] [place] [address] 10/30/2025 1:20 PM EST [facility] [address] [place] [address] Sharif Moreno, ROSY [address] [place] [address] documented as of this encounter [...] 05/02/2025 2:04 PM us Marianna N Evan CHEMICAL MILLING PROCESSOR IMG US PROCEDURES Final Resu lt * [...] female with decompensated cirrhosis with ascites. TECHNIQUE: Bottom Buffer: Shaniqua Mccurdy APRN Secondary Waiter/Waitress Cocktail Lounge: None. Nurse: PARK Yeboah Technologist: Lilliana Phillips [...] female with decompensated cirrhosis with ascites. TECHNIQUE: Bottom Buffer: Shaniqua Mccurdy APRN Secondary Waiter/Waitress Cocktail Lounge: None. Nurse: PARK Yeboah Technologist: Lilliana Phillips [...] on 05/02/2025 2:11 PM us Marianna Gordon CHEMICAL MILLING PROCESSOR IMG US PROCEDURES Final Resu lt * Body fluid, cytospin, pathologist interpretation (05/02/2025 11:40 AM EDT) Specimen Type Body Fluid LAB HEMATOLOGY METHOD 05/03/2025 4:49 PM EDT [facility] Specimen Source, Body Fluid Peritoneal Fluid LAB HEMATOLOGY METHOD 05/03/2025 4:49 PM EDT [facility] Clinical Diagnosis, Body Fluid Ascites LAB HEMATOLOGY METHOD 05/03/2025 4:49 PM EDT [facility] Interpretation , Body Fluid No evidence of malignancy Chronic inflammatory cells Lymphocytosis Light blood A resident was involved in the service. I attest I examined the relevant preparations for the specimens and confirmed the diagnosis or interpretation. 05/03/2025 4:49 PM EDT [facility] Pathologist Signature, Body Fluid 05/03/2025 4:49 PM EDT [facility] Comment:Reviewed by: Kadie dobbs MD LAB CP ASR DISCLAIMER Yes 05/03/2025 4:49 PM EDT [facility] Body Fluid Peritoneal fluid / Unknown Non-blood Collection / Unknown 05/02/2025 11:40 AM EDT 05/02/2025 1:35 PM EDT us Shaniqua Mccurdy CHEMICAL MILLING PROCESSOR LAB BODY FLUIDS AND STOOLS O RDERABLES Final Result [facility] [address] [place] [address] * Glucose - Ascites (05/02/2025 11:40 AM EDT) Glucose, Fluid 232 mg/dL 05/02/2025 3:46 PM EDT [facility] Peritoneal Fluid Peritoneal cavity structure / Unknown Non-blood Collection / Unknown 05/02/2025 11:40 AM EDT 05/02/2025 1:35 PM EDT Narrative [facility] - 05/02/2025 3:46 PM EDT [...] 3) Glucose < 50 mg/dL. Shaniqua Mccurdy CHEMICAL MILLING PROCESSOR LAB BODY FLUIDS AND STOOLS O RDERABLES Final Result Performing Organization Address [facility] Co de Phone Number [facility] [address] [place] [address] * Protein - Ascites (05/02/2025 11:40 AM EDT) Total Protein, Fluid 1.4 g/dL 05/02/2025 3:46 PM EDT [facility] Peritoneal Fluid Peritoneal cavity structure / Unknown Non-blood Collection / Unknown 05/02/2025 11:40 AM EDT 05/02/2025 1:35 PM EDT Narrative [facility] - 05/02/2025 3:46 PM EDT This test was developed and its performance characteristics determined by [facility]. The U.S. Food and Drug Administration has not approved or cleared this test. However, FDA clearance or approval is not currently required for clinical use. The results are not intended to be used as the sole means for clinical diagnosis or patient management decisions. Shaniqua Mccurdy APRN LAB BODY FLUIDS AND STOOLS O RDERABLES Final Result Performing Organization Address [facility] Co de Phone Number [facility] [address] [place] [address] * (ABNORMAL) Body Fluid Cell Count With Diff - Ascites (05/02/2025 11:40 AM EDT) Color, Body fluid Wilson LAB HEMATOLOGY METHOD 05/02/2025 6:50 PM EDT [facility] Appearance, Body fluid Cloudy(A) LAB HEMATOLOGY METHOD 05/02/2025 6:50 PM EDT [facility] Volume, Body fluid 8.0 cc LAB HEMATOLOGY METHOD 05/02/2025 6:50 PM EDT [facility] Fluid Container Tube 3 LAB HEMATOLOGY METHOD 05/02/2025 6:50 PM EDT [facility] Red Blood Cell Count, Body fluid 8,000 uL LAB HEMATOLOGY METHOD 05/02/2025 6:50 PM EDT [facility] Total Nucleated Cell Count, Body fluid 180 uL LAB HEMATOLOGY METHOD 05/02/2025 6:50 PM EDT [facility] Neutrophils %, Body fluid 1 % LAB HEMATOLOGY METHOD 05/02/2025 6:50 PM EDT [facility] Lymphocytes %, Body fluid 98 % LAB HEMATOLOGY METHOD 05/02/2025 6:50 PM EDT [facility] Monocytes/Macro phages %, Body fluid 1 % LAB HEMATOLOGY METHOD 05/02/2025 6:50 PM EDT [facility] Eosinophils %, Body fluid 0 % LAB HEMATOLOGY METHOD 05/02/2025 6:50 PM EDT [facility] Lining/Mesothel ial Cells %, Body fluid 0 % LAB HEMATOLOGY METHOD 05/02/2025 6:50 PM EDT [facility] Neutrophils Absolute (PMN), Body fluid 2 uL LAB HEMATOLOGY METHOD 05/02/2025 6:50 PM EDT [facility] Lymphocytes Absolute, Body fluid 176 uL LAB HEMATOLOGY METHOD 05/02/2025 6:50 PM EDT [facility] Monocytes/Macro phages Absolute, Body fluid 2 uL LAB HEMATOLOGY METHOD 05/02/2025 6:50 PM EDT [facility] Eosinophils Absolute, Body fluid 0 uL LAB HEMATOLOGY METHOD 05/02/2025 6:50 PM EDT [facility] Basophils Absolute, Body fluid 0 uL LAB HEMATOLOGY METHOD 05/02/2025 6:50 PM EDT [facility] Lining/Mesothel ial Cells Absolute, Body fluid 0 uL LAB HEMATOLOGY METHOD 05/02/2025 6:50 PM EDT [facility] Basophils %, Body fluid 0 % LAB HEMATOLOGY METHOD 05/02/2025 6:50 PM EDT [facility] Body Fluid Peritoneal fluid / Unknown Non-blood Collection / Unknown 05/02/2025 11:40 AM EDT 05/02/2025 1:35 PM EDT us Shaniqua Mccurdy CHEMICAL MILLING PROCESSOR LAB BODY FLUIDS AND STOOLS ORDERABLES NO SPECIMEN TYPE/SOURCE Final Result [facility] [address] [place] [address] documented in this encounter Visit Diagnoses Diagnosis [...] documented as of this encounter Care Teams Airport Operations Coordinator Relationship Specialty Start Date End Date Alvarez Zimmer MD [address] [place] [address] PCP - General Family Medicine 12/07/24 Lea Fernando [address] [place] [address] Sand Mixer Machine Endocrinology 08/29/24 Rachel Ray APRN [address] [place] [address] Nurse Practitioner Gastroenterology 09/24/24 documented as of this encounter
--- OUTSIDE RECORDS SUMMARY | 2025-05-03 13:50 | XMS_ITS | Encounter Summary ---
Author Organization Healthcare Address [address] 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 Patient unable to answer 01/10/2025 Do [...] Recorded Patient Health Questionnaire-2 Score 2 04/10/2025 [facility] - [...] place to sleep or slept in a long-term (including now)? Yes 08/29/2024 PHQ-9 Answer Date [...] time in the past 12 m [place], were you homeless or living in a long-term (including now)? 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) to steady your nerves or to get [...] Sign Reading Time Taken Comments Blood Pressure 122/65 05/03/2025 5:41 PM EDT Pulse 63 05/03/2025 5:41 PM EDT Temperature 36.5 C (97.7 F) 05/03/2025 5:41 PM EDT Respiratory Rate 16 05/03/2025 5:41 PM EDT Oxygen Saturation 97% 05/03/2025 5:41 PM EDT Inhaled Oxygen Concentration - - Weight 74.9 kg (165 lb 2 oz) 05/03/2025 1:08 PM EDT Height - - Body Mass Index 27.48 05/02/2025 9:27 AM EDT documented in this encounter Functional Status * Calculated C-SSRS Risk Score (Lifetime/Recent) Answer Date of Assessment Author No Risk Indicated 05/03/2025 2:49 PM EDT Carmel Neal RN * Question Answer Date of Assessment Author 1. Wish to be (Past 1 Month) No 025 2:49 PM EDT Glenn Neal RN 2. Non-Specific Active Suici liz Thoughts (Past 1 Month) No 05/03/2025 2:49 PM EDT Glenn Neal RN 6. Suicidal Behavior (Lifetime) No 2:49 PM EDT Yahr, Glenn S, RN documented as of this encounter Discharge Instructions * Discharge Instructions* Ana Luisa Apple DO - 05/03/2025 6:09 PM EDT Your lab work today looked normal. I want you to start taking your Lactulose and Rifaximin on the previously regular schedule. I have sent these prescriptions to [facility]. If you have any new or worsening symptoms please return. Otherwise, please follow up with the transplant clinic as previously discussed. documented in this encounter Medications at Time [...] 1 03/01/2025 ergocalciferol (Vitamin D-2) 1.25 MG (27057 UT) capsuleIndications: Vitamin D deficiency Take 1 capsule by mouth 1 time per week. 8 capsule 3 04/10/2025 11/20/20 fluticasone (Flonase) 50 MCG/ACT nasal sprayIndications:ET D [...] hyperglycemia, with long-term current use of insulin ([facility]) Inject 0.6 mg under the skin 1 [...] in chest. 100 g 03/05/2025 06/05/20 25 lactulose (Chronulac) 10 GM/15ML oral solution Take 30 mL by mouth 3 times a day. 2700 mL 05/03/2025 06/02/20 25 rifAXIMin (Xifaxan) 550 MG tabletIndications:T ransient alteration of awareness Take 1 tablet by mouth 2 times a day. 60 tablet 05/03/2025 06/02/20 25 calcitriol (Rocaltrol) 0.25 MCG capsuleIndications: Chronic [...] cases at a time per patient request 62374 mL 11 10/02/2024 05/07/20 25 omeprazole (PriLOSEC) [...] as of this encounter Miscellaneous Notes * ED Provider Notes - Ana Luisa Apple, - 05/03/2025 12:48 PM EDT Images from the original note were not included. - HPI Chief Complaint Patient presents with Syncope PIT NOTE Gabi Zimmer is a 64 y.o. female with a h/o CKD, cirrhosis, and T2DM who presents to the ED with syncope via EMS. Pt c/o intermittent syncopal episodes with onset beginning last night. Pt states she felt sleepy but had difficulty falling asleep. Pt c/o SOA. She reports CPAP last night without relief. Pt c/o neck pain. Pt states she is on liver transplant list. Pt reports previous high ammonialevels. Pt states she has not been taking lactulose. Pt reports 1.5 L paracentesis yesterday. Pt denies recent falls and headache. Pt denies dysuria. Pt denies chest pain, cough, abdominal pain, nausea, vomiting, and diarrhea. Pt denies any other complaints at this time. ED NOTE This is a 64-year-old female patient, with past medical history of type 2 diabetes, cirrhosis, recurrent ascites requiring weekly paracentesis, as well as CKD and CAD, who is presenting to the emergency department today for evaluation of intermittent confusion. The patient tells me that she normally takes rifaximin and lactulose at home but she has had trouble getting the pharmacy to fill these medications so she has not been taking these on a routine scheduled for the last several days. Last night she is having perceptual disturbances which she described to be confusion in transient alteration of awareness. 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 This morning her symptoms persisted so she came to the emergency department for evaluation. Her son is currently present with her and states that he was unaware that she was unable to get these medications refilled and he was under the assumption that she was taking these as regularly scheduled. He states thathe has not personally observed any confusion or alteration in her level of consciousness. History provided by: Patient translator and interpreter used: No Patient History Past Medical History[1] Surgical History[2] Family History[3] Social History[4] Allergies: Allergies[5] Physical Exam ED Triage Vitals [05/03/25 1308] Temp Heart Rate Resp BP 36.7 ??C (98 ??F) 74 17 119/68 SpO2 Temp Source Heart Rate Source Patient Position 98 % Oral -- Sitting BP Location FiO2 (%) Right arm -- Physical Exam Constitutional: General: She is not in acute distress. HENT: Head: Normocephalic. Comments: No facial swelling Mouth/Throat: Mouth: Mucous membranes are moist. Pharynx: Oropharynx is clear. Cardiovascular: Rate and Rhythm: Normal rate. Pulmonary: Effort: Pulmonary effort is normal. No respiratory distress. Breath sounds: Normal air entry. Comments: Speaking full sentences. Symmetric chest rise Abdominal: General: There is no distension. Musculoskeletal: General: No deformity. Normal range of motion. Cervical back: Normal range of motion. Comments: Atraumatic, moves all extremities spontaneously Neurological: Mental Status: She is alert. Mental status is at baseline. Comments: Awake Psychiatric: Behavior: Behavior normal. Shamir Coma Scale Score: 15 ED Course & MDM Date/Time: 05/03/2025/1:36 PM Scribe Attestation: This note was dictated to me, Love Ortiz, acting as a scribe for Dr. Jose Edwards MD. Attending Attestation: The documentation was recorded by Love Ortiz acting as scribe in my presence at the time of the encounter and accurately reflects the service I personally performed. - Assessment: 64 y.o. female presents to ED with complaint of intermittent confusion with transient alteration ofawareness that has currently resolved. It should be noted that the chronic conditions includes cirrhosis requiring weekly paracentesis as well as CKD and CAD, which currently is not at goal therapy. This complicates the clinical picture because it Comorbidities: may be exacerbating symptoms and increases the risk for morbidity On initial evaluation of the patient they were sitting upright in no acute distress and nontoxic inappearance. They are hemodynamically stable, saturating well on room air, and are neurologically intact. On examination of the patient she does not have any abdominal tenderness. Heart and lungs are clearto auscultation bilaterally. She is alert and oriented x4 in his appropriately conversational. Differential Diagnosis: Hepatic encephalopathy, acute kidney injury, acute liver injury, electrolyte derangement, ACS/LA, pneumonia, urinary tract infection, among others. In order to fully explore the differential diagnosis the following treatments and tests were ordered: All Other Orders Ordered Status Ordering Provider 05/03/25 1628 Urinalysis Microscopic Examination Once Final result ANA LUISA APPLE 05/03/25 1420 Troponin T, High Sensitivity, 2 Hour, Plasma PROCEDURE ONCE Final result JOSE EDWARDS 05/03/25 1514 Urinalysis with reflex microscopic AND reflex culture (IF UTI SUSPECTED) STAT Final result ANA LUISA APPLE 05/03/25 1514 Urinalysis with reflex microscopic (Culture NOT Included) PROCEDURE ONCE Final result ANA LUISA APPLE 05/03/25 1514 Urine Subramanian Panel PROCEDURE ONCE Final result ANA LUISA APPLE 05/03/25 1336 Ammonia STAT Final result GRACE SANDIEANGELINE Metcalf 05/03/25 1336 Once Canceled JOSE EDWARDS 05/03/25 1336 CMP STAT Final result JOSE EDWARDS N 05/03/25 1336 Blood gas panel, venous STAT Final result JOSE EDWARDS 05/03/25 1336 CBC w/diff STAT Final result JOSE EDWARDS N 05/03/25 1336 Troponin now and 120 min STAT Final result JOSE EDWARDS N 05/03/25 1336 PT-INR STAT Final result JOSE EDWARDS 05/03/25 1336 APTT STAT Final result JOSE EDWARDS 05/03/25 1336 XR Chest 1 View One time imaging Final result JOSE EDWARDS 05/03/25 1310 EKG now - STAT (adult) Once Preliminary result JOSE ROBERTO WHITTEN EKG personally interpreted by me demonstrates normal sinus rhythm with a rate of 73 beats per minute, left axis, no MA prolongation, narrow QRS, no QTC prolongation. No ST elevation or depression. Noovert signs of ischemia. The patient does have rare PACs. Labs personally interpreted by me demonstrate no actionable abnormalities. No significant electrolyte derangements. No significant elevation of her INR. Bilirubin is stable from prior. She is not significantly anemic. Ammonia level is 55 and the patient is not currently confused so I do have a low suspicion for active hepatic encephalopathy. Chest x-ray personally interpreted by me demonstrates no lobar consolidation or pneumothorax. Official radiology read is in agreement and states that there is a small left basilar effusion. The patient has remained completely asymptomatic throughout the duration of her stay in the emergency department. She is mentating appropriately on multiple repeat assessments. The remainder of her labs have returned and there was no significant troponin delta and her urinalysis shows no signs of urinary tract infection. I have confirmed through prior records of the patient takes 550 mg of rifaximin twice daily as wellas 30 mL of lactulose 3 times daily. I have represcribed these to the [facility] and instructed the patient to flower picker these medications at the pharmacy. At this time all questions havebeen answered and all parties are agreeable with the decision to discharge home Clinical Impressions as of 05/03/251821 Transient alteration of awareness Social Determinates of Health Risks (including Economic Stability, Education and level of understanding, Healthcare access and quality and concerning social factors): None identified on this visit Ultimately, this patient was Was discharged Home (Discharge) The encounter diagnosis was Transient alteration of awareness. . Patient was counseled on the diagnoses. Discharge medications if any are listed below. Listed medications are thought be either curative for listed diagnoses or will help control ongoing symptoms. Patient is requested to follow up with Patient's Primary Care Provider in order to obtain routine follow-up. Instructions on follow up as well as precautions to return to the ER provided verbally by the EM provider, as well as written in patients discharge education packet. ED Prescriptions Medication Sig Dispense Start Date End Date Auth. Provider rifAXIMin (Xifaxan) 550 MG tablet Take 1 tablet by mouth 2 times a day. 60 tablet 05/03/2025 06/02/2025 Ana Luisa Apple, lactulose (Chronulac) 10 GM/15ML oral solution Take 30 mL by mouth 3 times a day. 2,700 mL 05/03/2025 06/02/2025 Ana Luisa Apple, DO Discharge Instructions Your lab work today looked normal. I want you to start taking your Lactulose and Rifaximin on the previously regular schedule. I have sent these prescriptions to [facility]. If you have any new or worsening symptoms please return. Otherwise, please follow up with the transplant clinic as previously discussed. Disposition Discharge AVS (Faroese Snapshot) - Printed 05/03/2025 - [1] Past Medical History: Diagnosis Date ADHD (attention deficit hyperactivity disorder) Allergic Anxiety disorder, unspecified Anxiety Bleeding gums Blood in urine Cataract Chronic kidney disease Cirrhosis (CMS/HCC) Colon cancer screening 09/20/2019 Added automatically from request for surgery [id number] Coronary artery disease Depression 1995 Diabetes mellitus [...] 1979 BLADDER SURGERY N/A Bladder surgery from [facility] BREAST BIOPSY 2011 BREAST SURGERY 2010 BUNIONECTOMY Right CATARACT EXTRACTION Bilateral 2016 CHOLECYSTECTOMY 1980 ESOPHAGOGASTRODUODENOSCOPY HYSTERECTOMY N/A Hysterectomy from [facility] KNEE SURGERY Bilateral ORAL SURGERY N/A Oral surgery from [facility] OTHER SURGICAL HISTORY 2014 ROOT CANAL WISDOM TOOTH EXTRACTION [3] Family History Problem Relation Name Age of Onset Arthritis Mother Karime Singletary Diabetes Mother Karime Singletary Hypertension Mother Karime Singletary Thyroid disease Mother Karime Singleatry Hyperlipidemia Mother Karime Singletary Diabetes type II Mother Karime Singletary Kidney disease Mother Karime Singletary Depression Mother Karime Singletary Arthritis Father Eliseo Singletary Cardiac disorder Father Eliseo Singletary Diabetes Father Eliseo Singletary Skin cancer Father Eliseo Singletary Cancer Father Eliseo Singletary Diabetes type II Father Eliseo Singletary Heart disease Father Eliseo Singletary Kidney disease Father Eliseo Singletary Depression Father Eliseo Singletary Hearing loss Father Eliseo Singletary Arthritis Sister Lj Bernal Diabetes Sister Lj Bernal Diabetes type II Sister Lj Bernal Autoimmune disease Sister Lj Bernal Immunodeficiency Sister Lj Bernal Rheumatologic disease Sister Lj Bernal Recurrent Infections Sister Lj Bernal Dementia Maternal Grandmother Christine Dick Alzheimer's disease Maternal Grandmother Christine Dick Emphysema Maternal Grandmother Christine Dick No Known Problems Maternal Grandfather Kidney disease Paternal Grandmother Anish Singletary Stomach cancer Paternal Grandmother Anish Singletary Dementia Paternal Grandfather No Known Problems Son Diabetes Son Depression Son Anxiety disorder Son Obesity Son Depression Son Jpamrik Zimmer Asthma Son Jp Zimmer Mental illness Son Jp Zimmer Depression Son Viral Zimmer Diabetes Son Viralarnoldo Zimmer [4] Tobacco Use Smoking status: Never Passive exposure: Never Smokeless tobacco: Never Vaping Use Vaping status: Never Used Substance Use Topics Alcohol use: Not Currently Drug use: Never [5] No Known Allergies Ana Luisa Apple DO Resident 05/03/251821 Cosigned by Jose Roberto Whitten MD at 05/06/2025 5:09 PM EDT Associated attestation - Jose Roberto Whitten MD - 05/06/2025 5:09 PM EDT I saw and evaluated the patient with the resident/fellow. I discussed the case with the resident/fellow and agree with the findings and plan as documented. Patient is not overtly encephalopathic on my examination. She has not been taking lactulose or rifaximin, suspect some component of mild hepatic encephalopathy. She says that she will start taking the medication and her son at bedside says that he will be able to help her over the weekend. She has caretakers that come during the week and shehas follow-up scheduled for early next week. Patient and family comfortable with discharge, which Ibelieve is appropriate given otherwise unremarkable laboratory evaluation. Denies head injury or headache, do not suspect intracranial pathology such as ICH. * ED Triage Notes - Fabiana Reddy RN - 05/03/2025 12:48 PM EDT Pt had intermittent syncopal episodes starting last night. Pt on liver transplant list. documented in this encounter Plan of Treatment Upcoming Encounters Date Type Department Care Team (Late st Contact Info) Description 06/27/2025 9:30 AM EDT Appointment [facility] Inter[facility] Radiology [address] [place] [address] 06/27/2025 10:30 AM EDT Appointment [facility]iology [address] [place] [address] 07/04/2025 10:30 AM EDT Appointment [facility] [address] [place] [address] 07/04/2025 11:30 AM EDT Appointment [facility]iology [address] [place] [address] 07/09/2025 2:40 PM EDT Office Visit Professional [facility] [address], [address] [place] [address] Ar Dominique MD [address] [place] [address] 07/11/2025 10:30 AM EDT Appointment [facility]iology [address] [place] [address] 07/11/2025 11:30 AM EDT Appointment [facility] [address] [place] [address] 07/18/2025 10:30 AM EDT Appointment [facility] [address] [place] [address] 07/18/2025 11:30 AM EDT Appointment [facility] [address] [place] [address] 07/25/2025 10:30 AM EDT Appointment [facility] [address] [place] [address] 07/25/2025 11:30 AM EDT Appointment [facility]iology [address] [place] [address] 07/31/2025 9:00 AM EDT Office Visit [facility] [address] [place] [address] Alvarez Zimmer MD [address] [place] [address] 08/20/2025 9:30 AM EDT Clinical Support [facility] [place] [address] [place] [address] 08/20/2025 10:30 AM EDT Social Work [facility] [place] [address] [place] [address] [place] [address] 08/20/2025 11:00 AM EDT Office Visit [facility] [place] [address] [place] [address] Jude Duque MD [address] [place] [address] 10/30/2025 1:20 PM EST Office Visit [facility] [address] [place] [id number] Sharif Moreno, DPNicole [address] [place] [address] documented as of this encounter Procedures Procedure Name Priority Date/Time Associated Diagnosis Comments URINALYSIS WITH REFLEX MICROSCOPIC AND CULTURE STAT 05/03/2025 4:23 PM EDT URINE SUBRAMANIAN PANEL STAT 05/03/2025 4:23 PM EDT URINALYSIS MICROSCOPIC FOR UA REFLEX STAT 05/03/2025 4:23 PM EDT TROPONIN T, HIGH SENSITIVITY, 2 HOUR, PLASMA Timed 05/03/2025 4:23 PM EDT URINALYSIS WITH REFLEX MICROSCOPIC STAT 05/03/2025 4:23 PM EDT XR CHEST 1 VIEW STAT 05/03/2025 2:32 PM EDT TROPONIN T, HIGH SENSITIVITY, 0 HOUR, PLASMA, REFLEX TO 2 HOUR STAT 05/03/2025 1:50 PM EDT APTT STAT 05/03/2025 1:50 PM EDT PROTHROMBIN TIME(PT) / INR STAT 05/03/2025 1:50 PM EDT CBC WITH AUTO DIFFERENTIAL STAT 05/03/2025 1:50 PM EDT BLOOD GAS PANEL, VENOUS STAT 05/03/2025 1:50 PM EDT AMMONIA, PLASMA STAT 05/03/2025 1:50 PM EDT COMPREHENSIVE METABOLIC PANEL, PLASMA STAT 05/03/2025 1:50 PM EDT ECG ADULT STAT 05/03/2025 1:14 PM EDT documented in this encounter Results * Urinalysis Microscopic Examination (05/03/2025 4:23 PM EDT) Urine Urine specimen obtained by clean catch procedure / Unknown Non-blood Collection / Unknown 05/03/2025 4:23 PM EDT 05/03/2025 4:25 PM EDT us Jose Roberto Whitten MD LAB URINE ORDERABLES Final Result [facility] [address] [place] [address] * Urine Subramanian Panel (05/03/2025 4:23 PM EDT) Extra Reflex urine culture not indicated 05/03/2025 6:01 PM EDT [facility] Urine Urine specimen obtained by clean catch procedure / Unknown Non-blood Collection / Unknown 05/03/2025 4:23 PM EDT 05/03/2025 4:37 PM EDT us Jose Roberto Whitten MD LAB URINE ORDERABLES Final Result Performing Organization Address City/[facility]/ZIP Co de Phone Number [facility] [address] [place] [address] * (ABNORMAL) Urinalysis with reflex microscopic (Culture NOT Included) (05/03/2025 4:23 PM EDT) Color, Urine Yellow LAB URINALYSIS - AUTOMATED METHOD 05/03/2025 4:53 PM EDT [facility] Clarity, Urine Clear LAB URINALYSIS - AUTOMATED METHOD 05/03/2025 4:53 PM EDT [facility] Spec [place], Urine 1.016 1.005 - 1.030 LAB URINALYSIS - AUTOMATED METHOD 05/03/2025 4:53 PM EDT [facility] pH, Urine 5.5 5.0 - 8.0 LAB URINALYSIS - AUTOMATED METHOD 05/03/2025 4:53 PM EDT [facility] Protein, Urine Negative Negative mg/dL LAB URINALYSIS - AUTOMATED METHOD 05/03/2025 4:53 PM EDT [facility] Glucose, Urine Negative Negative mg/dL LAB URINALYSIS - AUTOMATED METHOD 05/03/2025 4:53 PM EDT [facility] Ketones, Urine Negative Negative mg/dL LAB URINALYSIS - AUTOMATED METHOD 05/03/2025 4:53 PM EDT [facility] Blood, Urine Small(A) Negative LAB URINALYSIS - AUTOMATED METHOD 05/03/2025 4:53 PM EDT [facility] Bilirubin, Urine Negative Negative LAB URINALYSIS - AUTOMATED METHOD 05/03/2025 4:53 PM EDT [facility] Urobilinogen, Urine 1.0 0.2 to 1.0 mg/dL LAB URINALYSIS - AUTOMATED METHOD 05/03/2025 4:53 PM EDT [facility] Leukocytes, Urine Negative Negative LAB URINALYSIS - AUTOMATED METHOD 05/03/2025 4:53 PM EDT [facility] Nitrite, Urine Negative Negative LAB URINALYSIS - AUTOMATED METHOD 05/03/2025 4:53 PM EDT [facility] RBC, Urine 4 - 10(A) 0 to 3 /HPF LAB URINALYSIS - AUTOMATED METHOD 05/03/2025 4:53 PM EDT [facility] Comment:This result was prev iously suppressed from the chart. WBC, Urine 0 - 5 0 to 5 /HPF LAB URINALYSIS - AUTOMATED METHOD 05/03/2025 4:53 PM EDT [facility] Comment:This result was prev iously suppressed from the chart. Squamous Epithelial Cells 0 - 2 0 to 5 /HPF LAB URINALYSIS - AUTOMATED METHOD 05/03/2025 4:53 PM EDT [facility] Comment:This result was prev iously suppressed from the chart. Hyaline Casts 0 - 2 0 to 5 /LPF LAB URINALYSIS - AUTOMATED METHOD 05/03/2025 4:53 PM EDT [facility] Comment:This result was prev iously suppressed from the chart. Bacteria, Urine Negative Negative LAB URINALYSIS - AUTOMATED METHOD 05/03/2025 4:53 PM EDT [facility] Comment:This result was prev iously suppressed from the chart. Urine Urine specimen obtained by clean catch procedure / Unknown Non-blood Collection / Unknown 05/03/2025 4:23 PM EDT 05/03/2025 4:25 PM EDT us Jose Roberto Whitten MD LAB URINE ORDERABLES Final Result [facility] [address] [place] [address] * (ABNORMAL) Troponin T, High Sensitivity, 2 Hour, Plasma (05/03/2025 4:23 PM EDT) Troponin T, High Sensitivity, 2 Hour 31(H) <14 ng/L 05/03/2025 4:47 PM EDT [facility] Troponin Delta 1 <10 ng/L 05/03/2025 4:47 PM EDT [facility] Troponin Delta Interpretation Not Significant 05/03/2025 4:47 PM EDT [facility] Comment:Not Significant. No acute change in troponin observed between the baseline and 2 hour samples. Blood Venous blood specimen / Unknown Venipuncture / Unknown 05/03/2025 4:23 PM EDT 05/03/2025 4:25 PM EDT us Jose Edwards MD LAB BLOOD ORDERABLES Fi nal Result [facility] [address] [place] [address] * XR Chest 1 View (05/03/2025 2:32 PM EDT) Anatomical Region Laterality Modality Chest Digital Radiogra phy Impressions 05/03/2025 2:48 PM EDT No appreciable consolidation. Small left basilar effusion, with adjacent mild basilar atelectasis, likely trace effusion on the right. CRITICAL RESULT: No. COMMUNICATION: Per this written report. Drafted by Gerard Awad MD on 05/03/2025 2:45 PM Final report signed by Gerard Awad MD on 05/03/2025 2:48 PM Narrative 05/03/2025 2:48 PM EDT CLINICAL INDICATION: intermittent SOA TECHNIQUE: XR CHEST 1 VIEW COMPARISON: Chest x-rays obtained 04/11/2025, 04/18/2025. FINDINGS: No appreciable consolidation. Small left basilar effusion, with adjacent basilar atelectasis, likely trace effusion on the right. The cardiac size appears stable, similar appearance of the cardiac and mediastinal contours. No free subdiaphragmatic gas. No acute osseous findings. Small bone island in the proximal left humerus. Procedure Note Gerard Awad MD - 05/03/2025 CLINICAL INDICATION: intermittent SOA TECHNIQUE: XR CHEST 1 VIEW COMPARISON: Chest x-rays obtained 04/11/2025, 04/18/2025. FINDINGS: No appreciable consolidation. Small left basilar effusion, with adjacentbasilar atelectasis, likely trace effusion on the right. The cardiac sizeappears stable, similar appearance of the cardiac and mediastinalcontours. No free subdiaphragmatic gas. No acute osseous findings. Smallbone island in the proximal left humerus. IMPRESSION: No appreciable consolidation. Small left basilar effusion, with adjacentmild basilar atelectasis, likely trace effusion on the right. CRITICAL RESULT: No. COMMUNICATION: Per this written report. Drafted by Gerard Awad MD on 05/03/2025 2:45 PM Final report signed by Gerard Awad MD on 05/03/2025 2:48 PM Jose Edwards MD IMG XR PROCEDURES Final Result * (ABNORMAL) Ammonia (05/03/2025 1:50 PM EDT) Ammonia 55(H) 11 - 51 umol/L 05/03/2025 3:08 PM EDT [facility] Blood Venous blood specimen / Unknown Venipuncture / Unknown 05/03/2025 1:50 PM EDT 05/03/2025 2:54 PM EDT Jose Edwards MD LAB BLOOD ORDERABLES Fi nal Result Performing Organization Address City/[facility]/ZIP Co de Phone Number [facility] [address] [place] [address] * APTT (05/03/2025 1:50 PM EDT) aPTT 35 25 - 35 sec 05/03/2025 2:09 PM EDT [facility] Blood Venous blood specimen / Unknown Venipuncture / Unknown 05/03/2025 1:50 PM EDT 05/03/2025 1:56 PM EDT Jose Edwards MD LAB BLOOD ORDERABLES Fi nal Result Performing Organization Address [facility]/ZIP Co de Phone Number [facility] [address] [place] [address] * (ABNORMAL) PT-INR (05/03/2025 1:50 PM EDT) Pathologist [facility] Prothrombin Time 20.7(H) 12.0 - 14.3 sec 05/03/2025 2:08 PM EDT [facility] INR 1.8(H) 0.9 - 1.1 05/03/2025 2:08 PM EDT [facility] Blood Venous blood specimen / Unknown Venipuncture / Unknown 05/03/2025 1:50 PM EDT 05/03/2025 1:56 PM EDT Narrative [facility] - 05/03/2025 2:08 PM EDT OPTIMAL INR RANGES FOR PATIENT ON ORAL ANTICOAGULANT THERAPY Prevention of venous thromboembolism INR 2.0 to 3.0 In patients with heart disease: Atrial fibrillation INR 2.0 to 3.0 Valvular heart disease INR 2.0 to 3.0 Tissue heart valves INR 2.0 to 3.0 Mechanical prosthetic valves INR 2.5 to 3.5 Prevention of recurrent LA INR 2.5 to 3.5 us Jose Edwards MD LAB BLOOD ORDERABLES Fi nal Result [facility] [address] [place] [address] * (ABNORMAL) Troponin now and 120 min (05/03/2025 1:50 PM EDT) [facility] Troponin T, High Sensitivity, 0 Hour 30(H) <14 ng/L 05/03/2025 2:20 PM EDT [facility] Blood Venous blood specimen / Unknown Venipuncture / Unknown 05/03/2025 1:50 PM EDT 05/03/2025 1:57 PM EDT us Jose Edwards MD LAB BLOOD ORDERABLES Fi nal Result [facility] [address] [place] [address] * (ABNORMAL) CBC w/diff (05/03/2025 1:50 PM EDT) [facility] WBC Count 3.43(L) 3.70 - 10.30 10*3/uL LAB HEMATOLOGY METHOD 05/03/2025 2:00 PM EDT [facility] RBC Count 3.50(L) 3.90 - 5.20 10*6/uL LAB HEMATOLOGY METHOD 05/03/2025 2:00 PM EDT [facility] HGB 10.8(L) 11.2 - 15.7 g/dL LAB HEMATOLOGY METHOD 05/03/2025 2:00 PM EDT [facility] HCT 31.6(L) 34.0 - 45.0 % LAB HEMATOLOGY METHOD 05/03/2025 2:00 PM EDT [facility] Platelet Count 56(L) 155 - 369 10*3/uL LAB HEMATOLOGY METHOD 05/03/2025 2:00 PM EDT [facility] MCV 90 79 - 98 fL LAB HEMATOLOGY METHOD 05/03/2025 2:00 PM EDT [facility] MCH 30.9 26.0 - 32.0 pg LAB HEMATOLOGY METHOD 05/03/2025 2:00 PM EDT [facility] MCHC 34.2 30.7 - 35.5 g/dL LAB HEMATOLOGY METHOD 05/03/2025 2:00 PM EDT [facility] RDW 17.1(H) 11.5 - 14.5 % LAB HEMATOLOGY METHOD 05/03/2025 2:00 PM EDT [facility] MPV 10.4 8.8 - 12.5 fL LAB HEMATOLOGY METHOD 05/03/2025 2:00 PM EDT [facility] nRBC 0.0 <=0.0 per 100 WBCs LAB HEMATOLOGY METHOD 05/03/2025 2:00 PM EDT [facility] Differential Type Automated LAB HEMATOLOGY METHOD 05/03/2025 2:00 PM EDT [facility] Neutrophils % 68 % LAB HEMATOLOGY METHOD 05/03/2025 2:00 PM EDT [facility] Lymphocytes % 16 % LAB HEMATOLOGY METHOD 05/03/2025 2:00 PM EDT [facility] Monocytes % 12 % LAB HEMATOLOGY METHOD 05/03/2025 2:00 PM EDT [facility] Eosinophils % 3 % LAB HEMATOLOGY METHOD 05/03/2025 2:00 PM EDT [facility] Basophils % 1 % LAB HEMATOLOGY METHOD 05/03/2025 2:00 PM EDT [facility] Immature Granulocytes % 0 % LAB HEMATOLOGY METHOD 05/03/2025 2:00 PM EDT [facility] Neutrophils Absolute 2.35 1.60 - 6.10 10*3/uL LAB HEMATOLOGY METHOD 05/03/2025 2:00 PM EDT [facility] Lymphocytes Absolute 0.55(L) 1.20 - 3.90 10*3/uL LAB HEMATOLOGY METHOD 05/03/2025 2:00 PM EDT [facility] Monocytes Absolute 0.41 0.30 - 0.90 10*3/uL LAB HEMATOLOGY METHOD 05/03/2025 2:00 PM EDT [facility] Eosinophils Absolute 0.09 0.00 - 0.50 10*3/uL LAB HEMATOLOGY METHOD 05/03/2025 2:00 PM EDT [facility] Basophils Absolute 0.02 0.00 - 0.10 10*3/uL LAB HEMATOLOGY METHOD 05/03/2025 2:00 PM EDT [facility] Immature Granulocytes Absolute 0.01 0.00 - 0.06 10*3/uL LAB HEMATOLOGY METHOD 05/03/2025 2:00 PM EDT [facility] Blood Venous blood specimen / Unknown Venipuncture / Unknown 05/03/2025 1:50 PM EDT 05/03/2025 1:56 PM EDT Narrative [facility] - 05/03/2025 2:00 PM EDT Therapeutic decision making should be based on absolute values, rather than percentages. us Jose Edwards MD LAB BLOOD ORDERABLES Fi nal Result [facility] [address] [place] [address] * (ABNORMAL) Blood gas panel, venous (05/03/2025 1:50 PM EDT) pH, Venous 7.41 7.32 - 7.43 LAB HEMATOLOGY METHOD 05/03/2025 1:58 PM EDT [facility] pCO2, Venous 42 37 - 52 mmHg LAB HEMATOLOGY METHOD 05/03/2025 1:58 PM EDT [facility] pO2, Venous 21(L) 25 - 40 mmHg LAB HEMATOLOGY METHOD 05/03/2025 1:58 PM EDT [facility] SO2, Measured, Venous 25(L) 65 - 80 % LAB HEMATOLOGY METHOD 05/03/2025 1:58 PM EDT [facility] Base Excess, Venous 2.0 -2.0 - 3.0 mmol/L LAB HEMATOLOGY METHOD 05/03/2025 1:58 PM EDT [facility] Bicarbonate, Calculated, Venous 27(H) 22 - 26 mmol/L LAB HEMATOLOGY METHOD 05/03/2025 1:58 PM EDT [facility] Hematocrit, Whole Blood 37.5 34.0 - 45.0 % LAB HEMATOLOGY METHOD 05/03/2025 1:58 PM EDT [facility] Sodium, Whole Blood 141 136 - 145 mmol/L LAB HEMATOLOGY METHOD 05/03/2025 1:58 PM EDT [facility] Potassium, Whole Blood 3.8 3.6 - 4.9 mmol/L LAB HEMATOLOGY METHOD 05/03/2025 1:58 PM EDT [facility] Chloride, Whole Blood 107 97 - 107 mmol/L LAB HEMATOLOGY METHOD 05/03/2025 1:58 PM EDT [facility] Glucose, Whole Blood 170(H) 74 - 99 mg/dL LAB HEMATOLOGY METHOD 05/03/2025 1:58 PM EDT [facility] Lactate, Venous, Whole Blood 1.7 0.5 - 2.2 mmol/L LAB HEMATOLOGY METHOD 05/03/2025 1:58 PM EDT [facility] Ionized Calcium, Whole Blood 4.6 4.6 - 5.1 mg/dL LAB HEMATOLOGY METHOD 05/03/2025 1:58 PM EDT [facility] Blood Venous blood specimen / Unknown Venipuncture / Unknown 05/03/2025 1:50 PM EDT 05/03/2025 1:56 PM EDT us Jose Edwards MD LAB BLOOD ORDERABLES Fi nal Result [facility] [address] [place] [address] * (ABNORMAL) CMP (05/03/2025 1:50 PM EDT) Glucose, Plasma 172(H) 74 - 99 mg/dL 05/03/2025 2:20 PM EDT [facility] BUN, Plasma 20 8 - 23 mg/dL 05/03/2025 2:20 PM EDT [facility] Creatinine, Plasma 1.32(H) 0.60 - 1.10 mg/dL 05/03/2025 2:20 PM EDT [facility] BUN/Creatinine Ratio 15 05/03/2025 2:20 PM EDT [facility] Sodium, Plasma 140 136 - 145 mmol/L 05/03/2025 2:20 PM EDT [facility] Potassium, Plasma 3.9 3.6 - 4.9 mmol/L 05/03/2025 2:20 PM EDT [facility] Chloride, Plasma 107 97 - 107 mmol/L 05/03/2025 2:20 PM EDT [facility] CO2, Plasma 22 22 - 29 mmol/L 05/03/2025 2:20 PM EDT [facility] Anion Gap 11 6 - 16 mmol/L 05/03/2025 2:20 PM EDT [facility] Total Calcium, Plasma 8.7(L) 8.9 - 10.2 mg/dL 05/03/2025 2:20 PM EDT [facility] Total Protein 7.1 6.3 - 7.9 g/dL 05/03/2025 2:20 PM EDT [facility] Albumin, Plasma 3.5 3.5 - 5.2 g/dL 05/03/2025 2:20 PM EDT [facility] AST, Plasma 36(H) 10 - 35 U/L 05/03/2025 2:20 PM EDT [facility] ALT, Plasma 14 10 - 35 U/L 05/03/2025 2:20 PM EDT [facility] Alkaline Phosphatase, Plasma 205(H) 46 - 142 U/L 05/03/2025 2:20 PM EDT [facility] Total Bilirubin, Plasma 2.6(H) 0.2 - 1.1 mg/dL 05/03/2025 2:20 PM EDT [facility] eGFRcr 45.7 mL/min/1.7 3m*2 05/03/2025 2:20 PM EDT [facility] Comment:Reported eGFRcr in m L/min/1.73m2 is based the CKD-EPI 2020 equation that does not use a race coefficient. Blood Venous blood specimen / Unknown Venipuncture / Unknown 05/03/2025 1:50 PM EDT 05/03/2025 1:57 PM EDT us Jose Edwards MD LAB BLOOD ORDERABLES Fi nal Result Performing Organization Address City/[facility]/[place]UST Co de Phone Number [facility] [address] [place] [address] * EKG now - STAT (adult) (05/03/2025 1:14 PM EDT) EKG DIAGNOSIS CLASS Abnormal MUSE ECG Ventricular Rate 73 BPM MUSE ECG Atrial Rate 73 BPM MUSE ECG MA Interval 116 ms MUSE ECG QRSD Interval 86 ms MUSE ECG QT Interval 384 ms MUSE ECG QTC Interval 423 ms MUSE ECG P Williamson 40 degrees MUSE ECG R Williamson -33 degrees MUSE ECG T Wave Williamson 17 degrees MUSE ECG Diagnosis Sinus rhythm with premature atrial complexes MUSE ECG Diagnosis Left axis deviation MUSE ECG Diagnosis Possible Anterior infarct , age undetermined MUSE ECG Diagnosis MUSE ECG Diagnosis MUSE ECG Diagnosis Confirmed by Cecelia Leal ([id number]) on 05/03/2025 10:43:38 PM MUSE ECG 05/03/2025 1:14 PM EDT 05/03/2025 10:43 PM EDT us Jose Roberto Whitten MD ECG ORDERABLES Final Resul t Performing Organization Address City/[facility] Co de Phone Number MUSE ECG documented in this encounter Visit Diagnoses Diagnosis Transient alteration of awareness- Primary documented in this encounter Additional Health Concerns Assessment Noted Time PHQ-9 Depression Total Score: 0 03/06/20 25 1:21 PM EDT A fall risk assessment has been complete d for the patient 04/10/2025 10:50 AM EDT A Body Mass Index follow-up plan has been documented for the patient 05/02/2025 12:13 PM EDT documented as of this encounter Care Teams Network Intelligence Analyst Relationship Specialty Start Date End Date Alvarez Zimmer MD [address] [place] [id number] PCP - General Family Medicine 12/07/24 Lea Fernando [address] [place] [address] Architecture Instructor Endocrinology 08/29/24 Rachel Ray, ADRI [address] [facility] [address] [place] [address] Nurse Practitioner Gastroenterology 09/24/24 documented as of this encounter
--- OUTSIDE RECORDS SUMMARY | 2025-05-07 10:40 | XMS_ITS | Encounter Summary ---
Author Organization Healthcare Address [address] 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 Patient unable to answer 01/10/2025 Do you belong to any clubs o r organizations such as zoroastrian groups, unions, fraternal or athletic groups, or [...] Recorded Patient Health Questionnaire-2 Score 1 05/07/2025 [facility] - Occupational [...] any time in the past 12 m [facility], were you homeless or living in a [...] drink first t kennedy in the morning (EYE-FINISHING MANAGER) to steady your nerves or to get rid of a hangover? 0 10/22/2024 CAGE Questionnaire Score 0 024 Utilities Answer Date Recorded In the past 12 months has e [employer], gas, oil, or water [employer] threatened to shut off services in your [...] had moved into her own trailer in [place] as she was staying with her sister but she felt they were very overbearing and trying tocontrol her every move. Son has been trying not to micromanage her but feels frustrated she isn't taking better care of herself. Son lives in [place] She was seen 11/07/[address] Harris [...] fatty liver since 1996. Had admission to [facility] for hepatic encephalopathy in 01/2024. 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 # Osteoporosis - DEXA scan done today showed osteoporosis Health Maintenance: Immune to Hep A, nonimmune to hep B. Needs Hep B vaccine but could not be given in transplant clinic due to her insurance. [facility] She reports that she had a colonoscopy done a year ago at [facility] in [place]. Colonoscopy 09/2019- report reviewed and showed left [...] Appointment [facility] [address] [place] [address] 06/27/2025 10:30 AM EDT Appointment [facility] [address] [place] [address] 07/04/2025 10:30 AM EDT Appointment [facility] [address] [place] [address] 07/04/2025 11:30 AM EDT Appointment [facility] [address] [place] [address] 07/09/2025 2:40 PM EDT Office Visit [facility] [address] , [address] [place] [address] Ar Dominique MD [address] [place] [address] 07/11/2025 10:30 AM EDT Appointment [facility] [address] [place] [address] 07/11/2025 11:30 AM EDT Appointment [facility] [address] [place], [place] [address] 07/18/2025 10:30 AM EDT Appointment [facility] [address] [place], [place] [address] 07/18/2025 11:30 AM EDT Appointment [facility] [address] [place], [place] [address] 07/25/2025 10:30 AM EDT Appointment [facility] [address] [place], [place] [address] 07/25/2025 11:30 AM EDT Appointment [facility] [address] [place] [address] 07/31/2025 9:00 AM EDT Office Visit [address] [address] Alvarez Zimmer MD [address] [place] [address] 08/20/2025 9:30 AM EDT Clinical Support [facility] [place] [address] [place] [address] 08/20/2025 10:30 AM EDT Social Work [facility] [address] [place] [address] Deysi Ortega [place], [place] [id number] 08/20/2025 11:00 AM EDT Office Visit [facility] [place] [address] [place] [address] Jude Duque MD [address] [place] [address] 10/30/2025 1:20 PM EST Office Visit [facility] [address] [place] [phone] Sharif Moreno, DPM [address] [place] [address] documented as of this encounter [...] documented as of this encounter Care Teams Fountain Waitress/Waiter Relationship Specialty Start Date End Date Alvarez Zimmer MD [address] [place] [address] PCP - General Family Medicine 12/07/24 Lea Fernando [address] [place] [address] [facility] Endocrinology 08/29/24 Rachel Ray APRN [address] [place] [address] Nurse Practitioner Gastroenterology 09/24/24 documented as of this encounter
--- OUTSIDE RECORDS SUMMARY | 2025-05-07 12:09 | XMS_ITS | Encounter Summary ---
Author Organization [facility] Address [address] [place] [address] Care Team Providers Care Traveling Nurse Name Role Phone Lea Fernando Unavailable [phone] Rachel Ray MONITOR WORKER Unavailable [phone] Alvarez Zimmer MD Primary Care Provider [phone] Reason for Referral * Imaging (Routine) - Closed Specialty Diagnoses / Procedures Referred By Contac t Referred To Contact Radiology Diagnoses End-stage liver disease (CMS/HCC) Procedures CT Abdomen Pelvis w IV Contrast CT Liver Gerson Arora MD [address] [address] Phone: tel: fax: Referral ID Status Reason Start Date Expiration Date Visits Re quested Visits Authorized [id number] Closed 03/12/2025 09/11/2026 1 1 Reason for Visit * Imaging (Routine) - Closed Specialty Diagnoses / Procedures Referred By Contac t Referred To Contact Radiology Diagnoses End-stage liver disease (CMS/HCC) Procedures CT Abdomen Pelvis w IV Contrast CT Liver Gerson Arora MD [address] [place] [phone] Phone: tel: fax: Referral ID Status Reason Start Date Expiration Date Visits Re quested Visits Authorized [id number] Closed 03/12/2025 09/11/2026 1 1 Encounter Details Date Type Department Care Team (Latest Contact Info) Description 05/07/2025 12:09 PM EDT - 05/07/2025 11:59 PM EDT Hospital Encounter [facility] [address] [place] [address] End-stage liver disease (CMS/HCC) Discharge Disposition: Home or Self Care Social [...] week 01/10/2025 How often do you attend [facility] or pentecostal services? Patient unable to answer 01/10/2025 Do you belong to any clubs o r organizations such as cheondoism groups, unions, fraternal or athletic groups, or [...] Recorded Patient Health Questionnaire-2 Score 1 05/07/2025 [facility] - Occupational Stress [...] any time in the past [address] [facility], were you homeless or living in [...] drink first t kennedy in the morning (EYE-DOCUMENTATION LEAD) to steady your nerves or to get [...] on file documented as of this encounter Functional Status [...] Tamera Carter documented as of this encounter Discharge Instructions * Discharge Instructions* Kevin Carlyle M - 05/07/2025 12:16 PM EDT Images from the original note were not included. Caring for Yourself after Contrast Imaging If you had ORAL contrast: You can go back to your normal diet and activities as tolerated. Drink plenty of fluids, unless told otherwise. If you had IV contrast: You can go back to your normal diet and activities as tolerated. Drink plenty of fluids, unless told otherwise. Leave a bandage on the site for 30 minutes (where the IV was inserted or blood was drawn). If you had Intravesical (bladder) contrast: Return to normal diet and activity. What you need to know about delayed reaction to IV contrast What is IV Contrast? Contrast is a dye that is put into your body through an IV. It is used for imaging scans such as CT scans and MRIs. The contrast makes blood vessels, organs and other parts of your body show up better on the scan. What do I need to do after IV contrast? Drink lots of fluids. This will help flush the contrast out of your system. Drink 2-3 extra glasses or bottles of water within 4 hours of your scan. What is a contrast reaction? A contrast reaction is a bad side effect from the contrast dye. It is rare but it does happen. They can be mild - such as sneezing, itching, or hives. They can be severe - such as trouble breathing, throat swelling, and irregular heart beat. When do these reactions happen? They often happen right after the contrast is injected. Some happen hours after going home. Go to the nearest Emergency Department right away if you have any of these symptoms after you leavethe clinic or hospital. Sneezing Itching in your mouth, throat, eyes, ears, or skin Rash or hives Throwing up or stomach sickness High heart rate or ???racing?? of your heart Feeling dizzy or woozy Feeling short of breath or like you can???t take a deep breath Feeling very anxious for no other reason It is very important that these reactions be treated. Tell the doctor or nurse that you are having a reaction to IV contrast dye. Do not ignore any sign of a reaction! All reactions must be assessed by a doctor. Call 911 if you are alone and your reaction is more than mild sneezing or itching. If you have a mild reaction, call to speak with a Radiologist, explain that you havehad a contrast reaction, as this needs to be added to your medical record. documented in this encounter Medications at Time [...] by mouth daily. 30 tablet 2 04/17/2025 cholecalciferol (Vitamin D-3) 25 MCG (1000 UT) tablet Take 1 tablet by mouth daily. 90 tablet 2 04/01/2025 ciprofloxacin (Cipro) 500 MG tabletIndications:A ltered mental status, unspecified altered mental status type Take 1 tablet by mouth daily. 90 tablet 1 03/01/2025 ergocalciferol (Vitamin D-2) 1.25 MG (14104 UT) capsuleIndications: Vitamin D deficiency Take 1 capsule by mouth 1 time per week. 8 capsule 3 04/10/2025 fluticasone (Flonase) 50 MCG/ACT nasal sprayIndications:ET D [...] administer Tymlos daily 100 each 11 04/22/2025 lactulose (Chronulac) 10 GM/15ML solution Take 30 mL by mouth 3 times a day. 2700 mL 11 05/07/2025 Lancets misc Use to test blood sugars twice a day E11.65 100 each 1 02/12/2025 Lantus SoloStar 100 UNIT/ML injection pen Inject 52 units every morning. Titrate as directed. MDD: 60 units 04/23/2025 Magnesium Oxide, Laxative, 500 MG tabletIndications:H ypomagnesemia Take 1 tablet by mouth daily. 90 tablet 3 04/01/2025 midodrine (Proamatine) 10 MG tablet Take 2 tablets by mouth 3 times a day. 180 tablet 3 05/07/2025 Multiple Vitamins-Minerals (COMPLETE WOMENS PO) Take 1 [...] times per day. 400 each 3 11/16/2024 prochlorperazine (Compazine) 5 MG tablet Take 1 tablet by mouth every 8 hours as needed for nausea or vomiting. 60 tablet 2 05/07/2025 5 [place] 0.6 MG/0.6ML solution auto-injectorIndica tions:Type 2 [...] to area in chest. 100 g 03/05/2025 5 lactulose (Chronulac) 10 GM/15ML oral solution Take 30 mL by mouth 3 times a day. 2700 mL 05/03/2025 5 rifAXIMin (Xifaxan) 550 MG tabletIndications:T ransient alteration of awareness Take 1 tablet by mouth 2 times a day. 60 tablet 05/03/2025 5 calcitriol (Rocaltrol) 0.25 MCG capsuleIndications: Chronic kidney disease, stage 3b (CMS/HCC) Take 1 capsule by mouth daily. 30 capsule 2 04/22/2025 5 omeprazole (PriLOSEC) [address] capsule Take 1 capsule by mouth 2 times a day. Do not crush or chew. 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 60 tablet 11 05/07/2025 5 rosuvastatin (Crestor) 20 MG tablet Take 1 tablet by mouth nightly. 08/29/2020 5 documented as of this encounter Plan of Treatment Upcoming Encounters Date Type Department Care Team ([facility] st Contact Info) Description 06/27/2025 9:30 AM EDT Appointment [facility] [address] [place] [address] 06/27/2025 10:30 AM EDT Appointment [facility] [address] [place] [address] 07/04/2025 10:30 AM EDT Appointment [facility] [address] [place] [address] 07/04/2025 11:30 AM EDT Appointment [facility] [address] [place] [address] 07/09/2025 2:40 PM EDT Office Visit [facility] [address], [address] [place] [address] Ar Dominique MD [address] [place] [address] 07/11/2025 10:30 AM EDT Appointment [facility] [address] [place] [address] 07/11/2025 11:30 AM EDT Appointment [facility] [address] [place] [address] 07/18/2025 10:30 AM EDT Appointment [facility] [address] [place] [address] 07/18/2025 11:30 AM EDT Appointment [facility] [address] [place] [address] 07/25/2025 10:30 AM EDT Appointment [facility] [address] [place] [address] 07/25/2025 11:30 AM EDT Appointment [facility] [address] [place] [address] 07/31/2025 9:00 AM EDT Office Visit [facility] [address] [place] [address] Alvarez Zimmer MD [address] [place] [address] 08/20/2025 9:30 AM EDT Clinical Support [facility] [address] [place] [address] 08/20/2025 10:30 AM EDT Social Work [facility] [address] [place] [address] Deysi Ortega [place], [place] [id number] 08/20/2025 11:00 AM EDT Office Visit [facility] [address] [place] [address] Jude Duque MD [address] [place] [address] 10/30/2025 1:20 PM EST Office Visit [facility] [address] [place] [phone] Sharif Moreno, DPM [address] [place] [address] documented as of this encounter Procedures Procedure Name Priority Date/Time Associated Diagnosis Comments CT ABDOMEN PELVIS W IV CONTRAST Routine 05/07/2025 1:23 PM EDT End-stage liver disease (CMS/HCC) documented in this encounter Results * CT Abdomen Pelvis w IV Contrast (05/07/2025 1:23 PM EDT) Anatomical Region Laterality Modality Abdomen, Pelvis Computed Tomogra phy Impressions 05/07/2025 8:14 PM EDT Focal Hepatic Observations: LI-RADS Negative Portal hypertension as evidenced by splenomegaly, portosystemic collaterals, subperitoneal space edema, portal colopathy and moderate volume ascites. CRITICAL RESULT: No. COMMUNICATION: Per this written report. LI-RADS M = Probably or definitely malignant but not HCC specific LI-RADS TI-V = Definitely tumor in vein LI-RADS 5 = Definitely hepatocellular carcinoma (concordant with OPTN*) LI-RADS 4 = Probably hepatocellular carcinoma LI-RADS 3 = Intermediate probability for hepatocellular carcinoma LI-RADS 2 = Probably benign LI-RADS 1 = Definitely benign LI-RADS NC = Not categorized secondary to image degradation or omission LI-RADS TR Nonviable - Treated, probably or definitely not viable LI-RADS TR Equivocal - Treated, equivocally viable LI-RADS TR Nonprogressing - Treated with radiation, masslike enhancement, which is stable or decreased in size over time after LRT LI-RADS TR Viable - Treated, probably or definitely viable LI-RADS TR Nonevaluable - Cannot be categorized due to image degradation or omission NOTE: LI-RADS categories should be interpreted in the context of other available data, such as biomarkers and the patient's prior probability of developing or having hepatocellular carcinoma. The LI-RADS classification of liver lesions has been adopted to standardize CT and MRI scan reporting in patients at risk for hepatocellular carcinoma. CT/MRI LI- RADS and US LI-RADS are consistent with and integrated into the [place] [employer] the Study of Liver Diseases (AASLD) 2018 hepatocellular carcinoma (HCC) clinical practice guidance. LI-RADS criteria and documentation are available online at www.acr.org/Quality-Safety/Resources/LIRADS. This report utilizes LI-RADS version 2018 with updated Treatment Response Assessment (TRA) v2024. *OPTN and LI-RADS criteria for definite HCC are identical except for: 10-19 mm observations with nonrim APHE + nonperipheral washout but without enhancing capsule or threshold growth. Implication: Some LR-5 observations do not count as OPTN 5. By electronically signing this report, I, the attending physician, attest that I have personally reviewed the images/data for the above examination(s) and agree with the final edited report. Drafted by Patricia Samaniego DO on 05/07/2025 1:47 PM Final report signed by Salina Carpenter MD on 05/07/2025 8:14 PM Narrative 05/07/2025 8:14 PM EDT CLINICAL INDICATION: Risk for hepatocellular carcinoma Liver Transplant evaluation TECHNIQUE: Multiple axial CT images were obtained of abdomen and pelvis following administration of IV contrast, Omnipaque 350, 100 mL. Images of the abdomen were obtained during arterial, portal venous, and delayed phases. The pelvis was imaged in portal venous phase. Reformatted images in the coronal and sagittal planes were generated from the axial data set to facilitate diagnostic accuracy. Precontrast axial CT images of the abdomen were also obtained. TOTAL DLP (Dose-Length Product): 1529.29 mGy.cm. Please note: The reported value represents the total of one or more individual components during the CT acquisition on this date and at this time, and as such, the same value may appear in more than one CT report depending on the interpreting/reporting physicians. Examination meets LI-RADS technical recommendations. COMPARISON: October 22, 2024 CT abdomen pelvis FINDINGS: Liver, Gallbladder, Biliary Tract: Heterogeneous enhancement of the liver with volume redistribution and nodular contour consistent with cirrhosis. No intra or extrahepatic biliary ductal dilatation. Gallbladder is absent. Hepatic Vasculature: Hepatic arterial anatomy is standard. The portal veins are patent. The hepatic veins are patent. Recanalized umbilical vein. Significant gastrosplenic varices. Focal Hepatic Observations: None. Extrahepatic Findings: Lower lungs: Moderate volume right pleural effusion with concurrent compressive atelectasis. Spleen: The spleen is enlarged in the craniocaudal dimension measuring 16 cm. Other Solid Abdominal Organs: Homogeneous enhancement of the pancreas. No suspicious pancreatic lesion. No main pancreatic duct dilatation. GI Tract/Mesentery/Peritoneum: The large and small bowel appear normal in caliber. No evidence of inflammatory change. Diffuse subperitoneal space edema compatible with portal hypertension. Right colonic edema compatible with portal colopathy. No suspicious peritoneal/mesenteric findings. Pelvic Viscera: Unremarkable. No suspicious pelvic mass lesions. Lymph Nodes: Prominent lymph nodes are noted at the arcadio hepatis, likely reactive. Free Fluid: Moderate abdominal and pelvic ascites. Musculoskeletal: No aggressive or suspicious findings. Degenerative changes throughout the imaged spine. Diffuse anasarca. Small ascites containing paraumbilical hernia. Left-sided sacral nerve stimulator is seen in place. Vasculature: Rest of the major abdominal vasculature is normal in caliber and patent. Procedure Note Salina Carpenter MD - 05/07/2025 CLINICAL INDICATION: Risk for hepatocellular carcinoma Liver Transplant evaluation TECHNIQUE: Multiple axial CT images were obtained of abdomen and pelvis followingadministration of IV contrast, Omnipaque 350, 100 mL. Images of theabdomen were obtained during arterial, portal venous, and delayed phases.The pelvis was imaged in portal venous phase. Reformatted images in thecoronal and sagittal planes were generated from the axial data set tofacilitate diagnostic accuracy. Precontrast axial CT images of the abdomenwere also obtained. TOTAL DLP (Dose-Length Product): 1529.29 mGy.cm. Please note: The reportedvalue represents the total of one or more individual components during theCT acquisition on this date and at this time, and as such, the same valuemay appear in more than one CT report depending on theinterpreting/reporting physicians. Examination meets LI-RADS technical recommendations. COMPARISON: October 22, 2024 CT abdomen pelvis FINDINGS: Liver, Gallbladder, Biliary Tract: Heterogeneous enhancement of the liverwith volume redistribution and nodular contour consistent with cirrhosis.No intra or extrahepatic biliary ductal dilatation. Gallbladder isabsent. Hepatic Vasculature: Hepatic arterial anatomy is standard. The portalveins are patent. The hepatic veins are patent. Recanalized umbilicalvein. Significant gastrosplenic varices. Focal Hepatic Observations: None. Extrahepatic Findings: Lower lungs: Moderate volume right pleural effusion with concurrentcompressive atelectasis. Spleen: The spleen is enlarged in the craniocaudal dimension measuring 16cm. Other Solid Abdominal Organs: Homogeneous enhancement of the pancreas. Nosuspicious pancreatic lesion. No main pancreatic duct dilatation. GI Tract/Mesentery/Peritoneum: The large and small bowel appear normal incaliber. No evidence of inflammatory change. Diffuse subperitoneal spaceedema compatible with portal hypertension. Right colonic edema compatiblewith portal colopathy. No suspicious peritoneal/mesenteric findings. Pelvic Viscera: Unremarkable. No suspicious pelvic mass lesions. Lymph Nodes: Prominent lymph nodes are noted at the arcadio hepatis, likelyreactive. Free Fluid: Moderate abdominal and pelvic ascites. Musculoskeletal: No aggressive or suspicious findings. Degenerativechanges throughout the imaged spine. Diffuse anasarca. Small ascitescontaining paraumbilical hernia. Left-sided sacral nerve stimulator isseen in place. Vasculature: Rest of the major abdominal vasculature is normal in caliberand patent. IMPRESSION: Focal Hepatic Observations: LI-RADS Negative Portal hypertension as evidenced by splenomegaly, portosystemiccollaterals, subperitoneal space edema, portal colopathy and moderatevolume ascites. CRITICAL RESULT: No. COMMUNICATION: Per this written report. LI-RADS M = Probably or definitely malignant but not HCC specific LI-RADS TI-V = Definitely tumor in vein LI-RADS 5 = Definitely hepatocellular carcinoma (concordant with OPTN*) LI-RADS 4 = Probably hepatocellular carcinoma LI-RADS 3 = Intermediate probability for hepatocellular carcinoma LI-RADS 2 = Probably benign LI-RADS 1 = Definitely benign LI-RADS NC = Not categorized secondary to image degradation or omission LI-RADS TR Nonviable - Treated, probably or definitely not viable LI-RADS TR Equivocal - Treated, equivocally viable LI-RADS TR Nonprogressing - Treated with radiation, masslike enhancement,which is stable or decreased in size over time after LRT LI-RADS TR Viable - Treated, probably or definitely viable LI-RADS TR Nonevaluable - Cannot be categorized due to image degradationor omission NOTE: LI-RADS categories should be interpreted in the context of otheravailable data, such as biomarkers and the patient's prior probability ofdeveloping or having hepatocellular carcinoma. The LI-RADS classificationof liver lesions has been adopted to standardize CT and MRI scan reportingin patients at risk for hepatocellular carcinoma. CT/MRI LI-RADS and USLI-RADS are consistent with and integrated into the [place] Associationfor the Study of Liver Diseases (AASLD) 2018 hepatocellular carcinoma(HCC) clinical practice guidance. LI-RADS criteria and documentation areavailable online at www.acr.org/Quality-Safety/Resources/LIRADS. Thisreport utilizes LI-RADS version 2018 with updated Treatment ResponseAssessment (TRA) v2024. *OPTN and LI-RADS criteria for definite HCC are identical except for:10-19 mm observations with nonrim APHE + nonperipheral washout butwithout enhancing capsule or threshold growth. Implication: Some LR-5observations do not count as OPTN 5. By electronically signing this report, I, the attending physician, atthadleythat I have personally reviewed the images/data for the aboveexamination(s) and agree with the final edited report. Drafted by Patricia Samaniego DO on 05/07/2025 1:47 PM Final report signed by Salina Carpenter MD on 05/07/2025 8:14 PM Gerson Arora MD IM CT PROCEDURES Final Result documented in this encounter Visit Diagnoses Diagnosis End-stage liver disease (CMS/HCC) Other sequelae of chronic liver disease documented in this encounter Administered Medications Inactive Administered Medications - up to 3 most recent administrations Medication Order MAR Action Action Date Dose Rate Site iohexol (OMNIPaque) 350 MG/ML injection 100 mL 100 mL, Intravenous, Once in imaging, 1 dose, Starting on Tue05/07/25 at 1216, Until Tue05/07/25 at 1314, Routine, Imaging Protocol Orders Given 05/07/2025 1:14 PM EDT 100 mL iohexol (OMNIPaque) 9 MG/ML oral contrast 500 mL 500 mL, Oral, Once in imaging, 1 dose, Starting on Tue05/07/25 at 1216, Until Tu05/07/25 at 1301, Routine, Imaging Protocol Orders Given 05/07/2025 1:01 PM EDT 500 mL documented in this encounter Additional Health Concerns Assessment Noted Time PHQ-9 Depression Total Score: 0 03/06/20 25 1:21 PM EDT A fall risk assessment has been complete d for the patient 05/07/2025 9:12 AM EDT A Body Mass Index follow-up plan has been documented for the patient 05/07/2025 11:34 AM EDT documented as of this encounter Care Teams Traveling Nurse Relationship Specialty Start Date End Date Alvarez Zimmer MD [facility] [place] [address] PCP - General Family Medicine 12/07/24 Lea Fernando [address] [place] [phone] Bicycle Service Technician Endocrinology 08/29/24 Rachel Ray APRN [address] [place] [address] Nurse Practitioner Gastroenterology 09/24/24 documented as of this encounter
--- OUTSIDE RECORDS SUMMARY | 2025-05-10 13:00 | XMS_ITS | Encounter Summary ---
Author Organization Healthcare Address [address] [id number] Care Team Providers Care Research Psychologist Name Role Phone Lea Fernando Unavailable [phone] Rachel Ray MAINTENANCE PLUMBER Unavailable [phone] Alvarez Zimmer MD Primary Care Provider [phone] Reason for Referral * Clinic-Administered Medication (Routine) - Closed Specialty Diagnoses / Procedures Referred By Eder t Referred To Contact Diagnoses Other ascites Procedures [place] ABDOM PARACENTESIS DX/THER W IMAGING GUIDANCE Marianna Gordon APRN [address] [place] [address] Phone: tel: fax: [facility] [address] [place] [address] Phone: tel: fax: Referral ID Status Reason Start Date Expiration Date Visits Re quested Visits Authorized [id number] Closed 05/10/2025 11/09/2026 1 1 * Imaging (Routine) - Closed Specialty Diagnoses / Procedures Referred By Eder t Referred To Contact Radiology Diagnoses Other ascites Procedures US Guided Thoracentesis Marianna Gordon APRN [address] [place] [address] Phone: tel: fax: Referral ID Status Reason Start Date Expiration Date Visits Re quested Visits Authorized [id number] Closed 04/18/2025 10/18/2026 1 1 * Imaging (Routine) - Closed Specialty Diagnoses / Procedures Referred By Eder zhu Referred To Contact Radiology Diagnoses Other ascites Procedures US Guided Abdominal Paracentesis Marianna Gordon APRN [address] [place] [address] Phone: tel: fax: Referral ID Status Reason Start Date Expiration Date Visits Re quested Visits Authorized [id number] Closed 04/18/2025 10/18/2026 1 1 Reason for Visit * Imaging (Routine) - Closed Specialty Diagnoses / Procedures Referred By Eder zhu Referred To Contact Radiology Diagnoses Other ascites Procedures US Guided Abdominal Paracentesis Marianna Gordon APRN [address] [place] [address] Phone: tel: fax: Referral ID Status Reason Start Date Expiration Date Visits Re quested Visits Authorized [id number] Closed 04/18/2025 10/18/2026 1 1 Encounter Details Date Type Department Care Team (Latest Contact Info) Description 05/10/2025 1:00 PM EDT - 05/10/2025 5:07 PM EDT Hospital Encounter [facility] Interventional Radiology [address] [place] [address] Abdoul Cuello 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 Patient unable to answer 01/10/2025 Do you belong to any clubs o r organizations such as catholic groups, unions, fraternal or athletic groups, or [...] Recorded Patient Health Questionnaire-2 Score 1 05/07/2025 [facility] - Occupational [...] or slept in a residential (including now)? Yes 08/29/2024 PHQ-9 Answer Date [...] any time in the past 12 m [facility], were you homeless or living in a residential (including now)? No 03/06/2025 CAGE ASSESSMENT Answer [...] drink first t kennedy in the morning (EYE-ZINC CHLORIDE OPERATOR) to steady your nerves or to get rid of a hangover? 0 10/22/2024 CAGE Questionnaire Score 0 024 Utilities Answer Date Recorded In the past 12 months has th [employer], [employer], oil, or water [employer] threatened to shut off services in your [...] 1 03/01/2025 ergocalciferol (Vitamin D-2) 1.25 MG (03008 UT) capsuleIndications: Vitamin D deficiency Take 1 [...] hyperglycemia, with long-term current use of insulin ([facility]) Inject 0.6 mg under the skin 1 [...] Postprocedure Note Performed by: Marianna Gordon APRN Paper Ruler: NA Pre-operative Diagnosis: right pleural effusion and [...] Total DLP (Dose-Length Product): 1722.82 mGy.cm (accession [id number]), 1722.82 mGy.cm (accession [id number]). Please note: The reported value represents the [...] no aneurysm of either internal carotid artery. [place] and Major Peripheral Branches: There [...] is no recent study available for direct niqm-di-mizl comparison. Assessment & Plan: Decompensated MASH cirrhosis [...] the care of this patient. Shaniqua Mccurdy, MAINTENANCE PLUMBER Interventional Radiology [phone] [1] Past Medical History: Diagnosis Date ADHD (attention deficit hyperactivity disorder) Allergic Anxiety disorder, unspecified Anxiety Bleeding gums Blood in urine Cataract Chronic kidney disease Cirrhosis (CMS/HCC) Colon cancer screening 09/20/2019 Added automatically from request for surgery [id number] Coronary artery disease Depression 1995 Diabetes mellitus [...] 1979 BLADDER SURGERY N/A Bladder surgery from [facility] BREAST BIOPSY 2011 BREAST SURGERY 2010 BUNIONECTOMY Right CATARACT EXTRACTION Bilateral 2016 CHOLECYSTECTOMY 1979 ESOPHAGOGASTRODUODENOSCOPY HYSTERECTOMY N/A Hysterectomy from [facility] KNEE SURGERY Bilateral ORAL SURGERY N/A Oral surgery from [facility] OTHER SURGICAL HISTORY 2014 ROOT CANAL WISDOM [...] Rfl: 1 ergocalciferol (Vitamin D-2) 1.25 MG (33578 UT) capsule, Take 1 capsule by mouth [...] at a time per patient request, Disp: 19688 mL, Rfl: 11 omeprazole (PriLOSEC) 40 MG [...] Appointment [facility] [address] [place] [address] 06/27/2025 10:30 AM EDT Appointment [facility] [address] [place] [address] 07/04/2025 10:30 AM EDT Appointment [facility] [address] [place] [address] 07/04/2025 11:30 AM EDT Appointment [facility] Inter[facility]iology [address] [place] [address] 07/09/2025 2:40 PM EDT Office Visit [facility] [address] [facility], [address] [place] [address] Ar Dominique MD [address] [place] [address] 07/11/2025 10:30 AM EDT Appointment [facility] [address] [place] [phone] 07/11/2025 11:30 AM EDT Appointment [facility] [address] [place] [address] 07/18/2025 10:30 AM EDT Appointment [facility] [address] [place] [address] 07/18/2025 11:30 AM EDT Appointment [facility] [address] [place] [address] 07/25/2025 10:30 AM EDT Appointment [facility] [address] [place] [address] 07/25/2025 11:30 AM EDT Appointment [facility] [address] [place] [address] 07/31/2025 9:00 AM EDT Office Visit [facility] [address] [place] [address] Alvarez Zimmer MD [address] [place] [address] 08/20/2025 9:30 AM EDT Clinical Support [facility] [place] [address] [place] [address] 08/20/2025 10:30 AM EDT Social Work [facility] [place] [address] [place] [address] [place] [address] 08/20/2025 11:00 AM EDT Office Visit [facility] [address] [place] [address] Jude Duque MD [address] [place] [address] 10/30/2025 1:20 PM EST Office Visit [facility] Endocrinology [address] [place] [address] Sharif Moreno, DPM [address] [place] [address] documented as of this encounter [...] on 05/10/2025 6:32 PM us Marianna Gordon MAINTENANCE PLUMBER IMG XR PROCEDURES Final Resu lt * [...] by ascites and intermittent hepatic hydrothorax. TECHNIQUE: Pipeline Gang Supervisor: Marianna Gordon APRN Secondary Take Down Sorter: None. Nurse: Maryam Technologist: Kalina Phillips Dose: [...] complicated by ascites and intermittenthepatic hydrothorax. TECHNIQUE: Pipeline Gang Supervisor: Marianna Gordon APRN Secondary Take Down Sorter: None. Nurse: Maryam Technologist: Kalina Phillips Dose: [...] on 05/13/2025 7:18 PM us Marianna Gordon MAINTENANCE PLUMBER IMG US PROCEDURES Final Resu lt * [...] by ascites and intermittent hepatic hydrothorax. TECHNIQUE: Pipeline Gang Supervisor: Marianna Gordon APRN Secondary Take Down Sorter: None. Nurse: Maryam Technologist: Kalina Phillips Dose: [...] complicated by ascites and intermittenthepatic hydrothorax. TECHNIQUE: Pipeline Gang Supervisor: Marianna Gordon APRN Secondary Take Down Sorter: None. Nurse: Maryam Technologist: Kalina Phillips Dose: [...] 05/13/2025 7:19 PM us Marianna N Cheeks MAINTENANCE PLUMBER IMG US PROCEDURES Final Resu lt * Protein - Ascites (05/10/2025 4:36 PM EDT) Total Protein, Fluid 0.7 g/dL 05/10/2025 7:01 PM EDT [facility] Ascites Peritoneal cavity structure / Unknown 05/10/2025 4:36 PM EDT 05/10/2025 4:54 PM EDT Narrative [facility] - 05/10/2025 7:01 PM EDT This test was developed and its performance characteristics determined by [facility]. The U.S. Food and Drug Administration has not approved or cleared this test. However, FDA clearance or approval is not currently required for clinical use. The results are not intended to be used as the sole means for clinical diagnosis or patient management decisions. us Marianna N Cheeks MAINTENANCE PLUMBER LAB BODY FLUIDS AND STOOLS O RDERABLES Final Result [facility] [address] [place] [address] * Body fluid, cytospin, pathologist interpretation (05/10/2025 4:35 PM EDT) Specimen Type Body Fluid LAB HEMATOLOGY METHOD 05/13/2025 5:28 PM EDT [facility] Specimen Source, Body Fluid Peritoneal Fluid LAB HEMATOLOGY METHOD 05/13/2025 5:28 PM EDT [facility] Clinical Diagnosis, Body Fluid Ascites LAB HEMATOLOGY METHOD 05/13/2025 5:28 PM EDT [facility] Interpretation , Body Fluid No evidence of malignancy Predominantly chronic inflammatory cells Lymphocytosis with reactive forms noted Light blood A resident was involved in the service. I attest I examined the relevant preparations for the specimens and confirmed the diagnosis or interpretation. 05/13/2025 5:28 PM EDT [facility] Pathologist Signature, Body Fluid 05/13/2025 5:28 PM EDT [facility] Comment:Reviewed by: Kadie dobbs MD LAB CP ASR DISCLAIMER Yes 05/13/2025 5:28 PM EDT [facility] Body Fluid Peritoneal fluid / Unknown Non-blood Collection / Unknown 05/10/2025 4:35 PM EDT 05/10/2025 4:54 PM EDT us Marianna N Cheeks MAINTENANCE PLUMBER LAB BODY FLUIDS AND STOOLS O RDERABLES Final Result [facility] [address] [place] [address] * (ABNORMAL) Body Fluid Cell Count With Diff - Ascites (05/10/2025 4:35 PM EDT) Color, Body fluid [place] LAB HEMATOLOGY METHOD 05/10/2025 11:19 PM EDT [facility] Appearance, Body fluid Cloudy(A) LAB HEMATOLOGY METHOD 05/10/2025 11:19 PM EDT [facility] Volume, Body fluid 30.0 cc LAB HEMATOLOGY METHOD 05/10/2025 11:19 PM EDT [facility] Fluid Container Specimen received in miscellaneous container LAB HEMATOLOGY METHOD 05/10/2025 11:19 PM EDT [facility] Red Blood Cell Count, Body fluid 6,000 uL LAB HEMATOLOGY METHOD 05/10/2025 11:19 PM EDT [facility] Total Nucleated Cell Count, Body fluid 187 uL LAB HEMATOLOGY METHOD 05/10/2025 11:19 PM EDT [facility] Neutrophils %, Body fluid 2 % LAB HEMATOLOGY METHOD 05/10/2025 11:19 PM EDT [facility] Lymphocytes %, Body fluid 69 % LAB HEMATOLOGY METHOD 05/10/2025 11:19 PM EDT [facility] Monocytes/Macr ophages %, Body fluid 26 % LAB HEMATOLOGY METHOD 05/10/2025 11:19 PM EDT [facility] Eosinophils %, Body fluid 0 % LAB HEMATOLOGY METHOD 05/10/2025 11:19 PM EDT [facility] Lining/Mesothe lial Cells %, Body fluid 3 % LAB HEMATOLOGY METHOD 05/10/2025 11:19 PM EDT [facility] Neutrophils Absolute (PMN), Body fluid 4 uL LAB HEMATOLOGY METHOD 05/10/2025 11:19 PM EDT [facility] Lymphocytes Absolute, Body fluid 129 uL LAB HEMATOLOGY METHOD 05/10/2025 11:19 PM EDT [facility] Monocytes/Macr ophages Absolute, Body fluid 49 uL LAB HEMATOLOGY METHOD 05/10/2025 11:19 PM EDT [facility] Eosinophils Absolute, Body fluid 0 uL LAB HEMATOLOGY METHOD 05/10/2025 11:19 PM EDT [facility] Basophils Absolute, Body fluid 0 uL LAB HEMATOLOGY METHOD 05/10/2025 11:19 PM EDT [facility] Lining/Mesothe lial Cells Absolute, Body fluid 6 uL LAB HEMATOLOGY METHOD 05/10/2025 11:19 PM EDT [facility] Basophils %, Body fluid 0 % LAB HEMATOLOGY METHOD 05/10/2025 11:19 PM EDT [facility] Body Fluid Peritoneal fluid / Unknown Non-blood Collection / Unknown 05/10/2025 4:35 PM EDT 05/10/2025 4:54 PM EDT us Marianna N Cheeks MAINTENANCE PLUMBER LAB BODY FLUIDS AND STOOLS ORDERABLES NO SPECIMEN TYPE/SOURCE Final Result [facility] [address] [place] [address] * POCT glucose meter (05/10/2025 3:29 PM EDT) [facility] POCT Glucose 95 74 - 99 [...] 05/10/2025 3:31 PM EDT [facility] Take Down Sorter ID Abdoul Cuello 05/10/20 3:31 PM EDT [facility]ALTH[facility]ARE LAB Device ID [id number] 05/10/2025 3:31 PM EDT [facility] Specimen Type POC Capillary 05/10/2025 3:31 PM EDT [facility] Blood Capillary blood specimen / Unknown 05/10/2025 3:29 PM EDT 05/10/2025 3:31 PM EDT Abdoul Cuello LAB POINT OF CARE TE ST DOCKED DEVICE UNSOLICITED RESULTS Final Result [facility] [address] [place] [address] documented in this encounter Visit Diagnoses Diagnosis [...] documented as of this encounter Care Teams Research Psychologist Relationship Specialty Start Date End Date Alvarez Zimmer MD [address] [place] [address] PCP - General Family Medicine 12/07/24 Lea Fernando [address] [facility] [address] [place] [address] Judge Endocrinology 08/29/24 Rachel Ray APRN [address] [phone] Nurse Practitioner Gastroenterology 09/24/24 documented as of this encounter
--- OUTSIDE RECORDS SUMMARY | 2025-05-10 17:08 | XMS_ITS | Encounter Summary ---
Author Organization Healthcare Address [address] [place] [address] Care Team Providers Care Diesel Mechanic Apprentice Name Role Phone Lea Fernando Unavailable [phone] Rachel Ray RN EMERGENCY ROOM Unavailable [phone] Alvarez Zimmer MD Primary Care Provider [phone] Encounter Details Date Type Department Care Team (Latest Contact Info) Description 05/10/2025 5:08 PM EDT - 05/10/2025 11:59 PM EDT Hospital Encounter [facility] [address] [place] [address] Discharge Disposition: Home or Self Care Social [...] often do you attend chur ch or roman catholic services? Patient unable to answer 01/10/2025 Do you belong to any clubs o r organizations such as jainism groups, unions, fraternal or athletic groups, or [...] Recorded Patient Health Questionnaire-2 Score 1 05/07/2025 [facility] - Occupational Stress Questionnaire Answer Date Recorded [...] place to sleep or slept in a nursing home (including now)? Yes 08/29/2024 PHQ-9 Answer Date [...] time in the past 12 m [facility], were you homeless or living in a nursing home (including now)? No 03/06/2025 CAGE ASSESSMENT Answer [...] drink first t kennedy in the morning (EYE-LOSS PREVENTION RESEARCH ENGINEER) to steady your nerves or to get [...] 1 03/01/2025 ergocalciferol (Vitamin D-2) 1.25 MG (51956 UT) capsuleIndications: Vitamin D deficiency Take 1 [...] [facility] [address] [place] [address] 06/27/2025 10:30 AM EDT Appointment [facility] [address] [place] [address] 07/04/2025 10:30 AM EDT Appointment [facility] [address] [place] [address] 07/04/2025 11:30 AM EDT Appointment [facility] [address] [place] [address] 07/09/2025 2:40 PM EDT Office Visit [facility] [address], [address] [place] [address] Ar Dominique MD [address] [facility] [address] [place] [address] 07/11/2025 10:30 AM EDT Appointment [facility] [address] [place] [address] 07/11/2025 11:30 AM EDT Appointment [facility] [address] [place] [address] 07/18/2025 10:30 AM EDT Appointment [facility] [address] [place] [address] 07/18/2025 11:30 AM EDT Appointment [facility] [address] [place] [address] 07/25/2025 10:30 AM EDT Appointment [facility] [address] [place] [address] 07/25/2025 11:30 AM EDT Appointment [facility] [address] [place] [address] 07/31/2025 9:00 AM EDT Office Visit [address] [place] [address] Alvarez Zimmer MD [address] [place] [address] 08/20/2025 9:30 AM EDT Clinical Support [facility] [address] [place] [address] 08/20/2025 10:30 AM EDT Social Work [facility] [address] [place] [address] [place] [address] 08/20/2025 11:00 AM EDT Office Visit [facility] [address] [place] [address] Jude Duque MD [address] [place] [address] 10/30/2025 1:20 PM EST Office Visit [facility] Endocrinology [address] [place] [address] Sharif Moreno, DPM [address] [place] [address] documented as of this encounter [...] 05/10/2025 6:32 PM us Marianna N Gabrielaekjo RN EMERGENCY ROOM IMG XR PROCEDURES Final Resu lt documented [...] documented as of this encounter Care Teams Diesel Mechanic Apprentice Relationship Specialty Start Date End Date Alvarez Zimmer MD [address] [place] [phone] PCP - General Family Medicine 12/07/24 Lea Fernando [address] [facility] [address] [place] [address] Feed Handler Endocrinology 08/29/24 Rachel Ray APRN [address] [place] [address] Nurse Practitioner Gastroenterology 09/24/24 documented as of this encounter
--- OUTSIDE RECORDS SUMMARY | 2025-05-16 08:01 | XMS_ITS | Encounter Summary ---
Author Organization Healthcare Address [address] [id number] Care Team Providers Care Research Intern Name Role Phone Lea Fernando Unavailable [phone] Rachel Ray APRN Unavailable [phone] Alvarez Zimmer MD Primary Care Provider Reason for Referral * Clinic-Administered Medication (Routine) - Closed Specialty Diagnoses / Procedures Referred By Eder t Referred To Contact Diagnoses Other ascites Procedures FL ABDOM PARACENTESIS DX/THER W IMAGING GUIDANCE Micheal Glasgow APRN, DNP [address] [place] [address] Phone: tel: fax: [facility] [address] [place] [address] Phone: tel: fax: Referral ID Status Reason Start Date Expiration Date Visits Re quested Visits Authorized [id number] Closed 05/16/2025 11/15/2026 1 1 * Imaging (Routine) - Closed Specialty Diagnoses / Procedures Referred By Eder t Referred To Contact Radiology Diagnoses Other ascites Procedures US Guided Thoracentesis Marianna Gordon APRN [address] [place] [address] Phone: tel: fax: Referral ID Status Reason Start Date Expiration Date Visits Re quested Visits Authorized [id number] Closed 04/26/2025 10/26/2026 1 1 * Imaging (Routine) - Closed Specialty Diagnoses / Procedures Referred By Eder zhu Referred To Contact Radiology Diagnoses Other ascites Procedures US Guided Abdominal Paracentesis Marianna Gordon APRN [address] [place] [address] Phone: tel: fax: Referral ID Status Reason Start Date Expiration Date Visits Re quested Visits Authorized [id number] Closed 04/26/2025 10/26/2026 1 1 Reason for Visit * Imaging (Routine) - Closed Specialty Diagnoses / Procedures Referred By Eder zhu Referred To Contact Radiology Diagnoses Other ascites Procedures US Guided Abdominal Paracentesis Marianna Gordon APRN [address] [place] [address] Phone: tel: fax: Referral ID Status Reason Start Date Expiration Date Visits Re quested Visits Authorized [id number] Closed 04/26/2025 10/26/2026 1 1 Encounter Details Date Type Department Care Team (Late st Contact Info) Description 05/16/2025 8:01 AM EDT - 05/16/2025 11:03 AM EDT Hospital Encounter [facility] Interventional Radiology [address] [place] [address] Kandice Silva RN CH-VASCULAR & INTERVENTIONAL RADIOLOGY [...] week 01/10/2025 How often do you attend [facility] or [facility] services? Patient unable to answer 01/10/2025 Do you belong to any clubs o r organizations such as synagogue groups, unions, fraternal or athletic groups, or [...] Recorded Patient Health Questionnaire-2 Score 1 05/07/2025 [facility] - Occupational [...] place to sleep or slept in a group home (including now)? Yes 08/29/2024 PHQ-9 Answer [...] any time in the past 12 m [facility], were you homeless or living in a group home (including now)? No 03/06/2025 CAGE ASSESSMENT [...] drink first t kennedy in the morning (EYE-INTELLIGENCE RESEARCH SPECIALIST) to steady your nerves or to get rid of a hangover? 0 10/22/2024 CAGE Questionnaire Score 0 024 Utilities Answer Date Recorded In the past 12 months has e [employer], gas, oil, or water company threatened to [...] call: [facility] Inter[facility] at [phone] Tuesday - Tuesday 8:00 AM to 4:30 PM After hours, weekends, and holidays please call [phone] and ask for the Interventional Radiology provider/Resident on-call Intervention Radiology Appointments: If you need to reschedule a procedure, please call our Schedulers at [phone], option 4. If you need to schedule or reschedule a clinic appointment, please call [phone]. [facility] Vascular and Interventional Radiology Clinic [facility] [address] [place] [address] documented in this encounter Medications at Time [...] 1 03/01/2025 ergocalciferol (Vitamin D-2) 1.25 MG (51459 UT) capsuleIndications: Vitamin D deficiency Take 1 [...] Needle Micro U/F) 32G X 6 MM [facility] [place] [place] Use to inject insulin 4 times per [...] from the original note were not included. [id number] Discharge Instructions for Paracentesis Paracentesis is a [...] fainting. Last Reviewed Date: 2025 00:00:00 ?? [id number] [employer]. All rights reserved. This information is not intended as a substitute for professional medical care. Always follow your healthcare professional's instructions. * John OnTHEO - Kandice Silva RN - 05/16/2025 11:13 AM EDT Images from the original note were not included. [id number] Discharge Instructions for Thoracentesis Thoracentesis is a [...] blood. Last Reviewed Date: 2025 00:00:00 ?? 3029-2750 [employer]. All rights reserved. This information is not [...] Total DLP (Dose-Length Product): 1722.82 mGy.cm (accession [id number]), 1722.82 mGy.cm (accession [id number]). Please note: The reported value represents the [...] no aneurysm of either internal carotid artery. [place] and Major Peripheral Branches: There [...] is no recent study available for direct [id number] comparison. 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 Shaniqua Mccurdy, MICROBIOLOGY PROFESSOR Interventional Radiology [phone] [1] Past Medical History: Diagnosis Date ADHD (attention deficit hyperactivity disorder) Allergic Anxiety disorder, unspecified Anxiety Bleeding gums Blood in urine Cataract Chronic kidney disease Cirrhosis (CMS/HCC) Colon cancer screening 09/20/2019 Added automatically from request for surgery [id number] Coronary artery disease Depression 1995 Diabetes mellitus [...] 1979 BLADDER SURGERY N/A Bladder surgery from [facility] BREAST BIOPSY 2011 BREAST SURGERY 2010 BUNIONECTOMY Right CATARACT EXTRACTION Bilateral 2016 CHOLECYSTECTOMY 1979 ESOPHAGOGASTRODUODENOSCOPY HYSTERECTOMY N/A Hysterectomy from [facility] KNEE SURGERY Bilateral ORAL SURGERY N/A Oral surgery from [facility] OTHER SURGICAL HISTORY 2014 ROOT CANAL WISDOM [...] Rfl: 1 ergocalciferol (Vitamin D-2) 1.25 MG (46079 UT) capsule, Take 1 capsule by mouth [...] at a time per patient request, Disp: 18034 mL, Rfl: 11 omeprazole (PriLOSEC) 40 MG [...] 10 mL, Infiltration, Once, Cheeks, Marianna Dixon, MICROBIOLOGY PROFESSOR Insert peripheral IV, , , Once AND Saline lock IV, , , Once AND sodium chloride 0.9 % flush10 mL, 10 mL, Intravenous, q12h AND sodium chloride 0.9 % flush 10 mL, 10 mL, Intravenous, PRN,Cheeks, Marianna N, MICROBIOLOGY PROFESSOR documented in this encounter Plan of Treatment Upcoming Encounters Date Type Department Care Team (Late st Contact Info) Description 06/27/2025 9:30 AM EDT Appointment [facility] Interventional Radiology [address] [place] [address] 06/27/2025 10:30 AM EDT Appointment [facility] Interventional Radiology [address] [place] [address] 07/04/2025 10:30 AM EDT Appointment [facility] Interventional Radiology [address] [place] [address] 07/04/2025 11:30 AM EDT Appointment [facility] Interventional Radiology [address] [place] [address] 07/09/2025 2:40 PM EDT Office Visit [employer] [place] [facility] [address] [facility] [place], [address] [place] [address] Ar Dominique MD [address] [facility] [place] [address] [place] [address] 07/11/2025 10:30 AM EDT Appointment [facility] Interventional Radiology [place] [address] 07/11/2025 11:30 AM EDT Appointment [facility] Interventional Radiology [address] [place] [address] 07/18/2025 10:30 AM EDT Appointment [facility] Inter[facility] Radiology [address] [place] [address] 07/18/2025 11:30 AM EDT Appointment [facility] Inter[facility] Radiology [address] [place] [address] 07/25/2025 10:30 AM EDT Appointment [facility] Inter[facility] Radiology [address] [place] [address] 07/25/2025 11:30 AM EDT Appointment [facility] Inter[facility] Radiology [address] [place] [address] 07/31/2025 9:00 AM EDT [facility] [address] [place] [address] Alvarez Zimmer MD [address] [place] [address] 08/20/2025 9:30 AM EDT Clinical Support [facility] [place] [address] [place] [address] 08/20/2025 10:30 AM EDT Social Work [facility] [place] [address] [place] [address] Deysi Orte[address] [place], [place] [phone] 08/20/2025 11:00 AM EDT Office Visit [facility] [place] [address] [place] [address] Jude Duque MD [address] [place] [address] 10/30/2025 1:20 PM EST Office Visit [facility] [address] [place] [address] Sharif Moreno, DPM [address] [place] [address] documented as of this encounter Procedures Procedure [...] by ascites and intermittent hepatic hydrothorax. TECHNIQUE: Stuntman: ADRI Glasgow Secondary Race Starter: None. Nurse: Brian Technologist: Lilliana Phillips Dose: [...] complicated by ascites and intermittenthepatic hydrothorax. TECHNIQUE: Stuntman: ADRI Glasgow Secondary Race Starter: None. Nurse: Brian Technologist: Lilliana Phillips Dose: [...] 05/16/2025 11:34 AM us Marianna Dixon Gordon MICROBIOLOGY PROFESSOR IMG US PROCEDURES Final Resu lt * [...] by ascites and intermittent hepatic hydrothorax. TECHNIQUE: Stuntman: ADRI Glasgow Secondary Race Starter: None. Nurse: Brian Technologist: Lilliana Phillips Dose: [...] complicated by ascites and intermittenthepatic hydrothorax. TECHNIQUE: Stuntman: ADRI Glasgow Secondary Race Starter: None. Nurse: Brian Technologist: Lilliana Phillips Dose: [...] LAB HEMATOLOGY METHOD 05/17/2025 12:[address] [facility] Specimen Source, Body Fluid Peritoneal Fluid LAB HEMATOLOGY METHOD 05/17/2025 12:[address] [facility] Clinical Diagnosis, Body Fluid Ascites LAB HEMATOLOGY METHOD 05/17/2025 12:[address] [facility] Interpretation , Body Fluid No evidence of malignancy Chronic inflammatory cells Light blood A resident was involved in the service. I attest I examined the relevant preparations for the specimens and confirmed the diagnosis or interpretation. 05/17/2025 12:[address] [facility] Pathologist Signature, Body Fluid 05/17/2025 12:[address] [facility] Comment:Reviewed by: Kadie dobbs MD LAB CP ASR DISCLAIMER Yes 05/17/2025 12:[address] [facility] Peritoneal Fluid Peritoneal fluid / Unknown Non-blood Collection / Unknown 05/16/2025 9:26 AM EDT 05/16/2025 10:06 AM EDT us Micheal E Pee MICROBIOLOGY PROFESSOR, DNP LAB BODY FLUIDS AND ST OOLS ORDERABLES Final Result Performing Organization Address [facility] de Phone Number [facility] [address] [place] [address] * Total Protein, Peritoneal Fluid (05/16/2025 9:26 AM EDT) Total Protein, Fluid 0.8 g/dL 05/16/2025 11:[address] [facility] Peritoneal Fluid Peritoneal cavity structure / Unknown Non-blood Collection / Unknown 05/16/2025 9:26 AM EDT 05/16/2025 10:[address] [facility] - 05/16/2025 11:23 AM EDT This test was developed and its performance characteristics determined by [facility]. The U.S. Food and Drug Administration has not approved or cleared this test. However, FDA clearance or approval is not currently required for clinical use. The results are not intended to be used as the sole means for clinical diagnosis or patient management decisions. us Micheal E Pee MICROBIOLOGY PROFESSOR, DNP LAB BODY FLUIDS AND ST OOLS ORDERABLES Final Result Performing Organization Address [facility] Co de Phone Number [facility] [address] [place] [address] * (ABNORMAL) Body Fluid Cell Count w/ Diff (05/16/2025 9:26 AM EDT) Color, Body fluid [place] LAB HEMATOLOGY METHOD 05/16/2025 1:22 PM EDT [facility] Appearance, Body fluid Cloudy(A) LAB HEMATOLOGY METHOD 05/16/2025 1:22 PM EDT [facility] Volume, Body fluid 27.0 cc LAB HEMATOLOGY METHOD 05/16/2025 1:[address] [facility] Fluid Container Specimen received in miscellaneous container LAB HEMATOLOGY METHOD 05/16/2025 1:[address] [facility] Red Blood Cell Count, Body fluid 6,000 uL LAB HEMATOLOGY METHOD 05/16/2025 1:[address] [facility] Total Nucleated Cell Count, Body fluid 184 uL LAB HEMATOLOGY METHOD 05/16/2025 1:22 PM EDT [facility] Neutrophils %, Body fluid 1 % LAB HEMATOLOGY METHOD 05/16/2025 1:22 PM EDT [facility] Lymphocytes %, Body fluid 73 % LAB HEMATOLOGY METHOD 05/16/2025 1:[address] [facility] Monocytes/Macr ophages %, Body fluid 23 % LAB HEMATOLOGY METHOD 05/16/2025 1:22 PM EDT [facility] Eosinophils %, Body fluid 2 % LAB HEMATOLOGY METHOD 05/16/2025 1:[address] [facility] Lining/Mesothe lial Cells %, Body fluid 1 % LAB HEMATOLOGY METHOD 05/16/2025 1:22 PM EDT [facility] Neutrophils Absolute (PMN), Body fluid 2 uL LAB HEMATOLOGY METHOD 05/16/2025 1:[address] [facility] Lymphocytes Absolute, Body fluid 134 uL LAB HEMATOLOGY METHOD 05/16/2025 1:22 PM EDT [facility] Monocytes/Macr ophages Absolute, Body fluid 42 uL LAB HEMATOLOGY METHOD 05/16/2025 1:[address] [facility] Eosinophils Absolute, Body fluid 4 uL LAB HEMATOLOGY METHOD 05/16/2025 1:22 PM EDT [facility] Basophils Absolute, Body fluid 0 uL LAB HEMATOLOGY METHOD 05/16/2025 1:[address] [facility] Lining/Mesothe lial Cells Absolute, Body fluid 2 uL LAB HEMATOLOGY METHOD 05/16/2025 1:[address] [facility] Basophils %, Body fluid 0 % LAB HEMATOLOGY METHOD 05/16/2025 1:[address] [facility] Peritoneal Fluid Peritoneal fluid / Unknown Non-blood Collection / Unknown 05/16/2025 9:26 AM EDT 05/16/2025 10:06 AM EDT us Micheal E Pee MICROBIOLOGY PROFESSOR, DNP LAB BODY FLUID S AND STOOLS ORDERABLES NO SPECIMEN TYPE/SOURCE Final Result [facility] [address] [place] [address] documented in this encounter Visit Diagnoses Diagnosis [...] as of this encounter Care Teams Research Intern Relationship Specialty Start Date End Date Alvarez Zimmer MD [address] [place] [address] PCP - General Family Medicine 12/07/24 Lea Fernando [address] [place] [address] Convict Guard Endocrinology 08/29/24 Rachel Ray APRN [address] [facility] [address] [place] [address] Nurse Practitioner Gastroenterology 09/24/24 documented as of this encounter
--- OUTSIDE RECORDS SUMMARY | 2025-05-16 11:04 | XMS_ITS | Encounter Summary ---
Author Organization Healthcare Address [address] [place] [address] Care Team Providers Care Cash Grain Farmer Name Role Phone Lea Fernando Unavailable [phone] Rachel Ray WOOD ROUTER Unavailable [phone] Alvarez Zimmer MD Primary Care Provider [phone] Encounter Details Date Type Department Care Team (Latest Contact Info) Description 05/16/2025 11:04 AM EDT - 05/16/2025 11:59 PM EDT Hospital Encounter [facility] Radiology [address] [place] [address] Discharge Disposition: Home or Self Care Social [...] often do you attend chur ch or episcopal services? Patient unable to answer 01/10/2025 Do you belong to any clubs o r organizations such as anglican groups, unions, fraternal or athletic groups, or [...] Recorded Patient Health Questionnaire-2 Score 1 05/07/2025 [facility] - Occupational Stress Questionnaire Answer Date Recorded [...] any time in the past 12 m [facility], were you homeless or [...] drink first t kennedy in the morning (EYE-TELETYPESETTER OPERATOR) to steady your nerves or to [...] 1 03/01/2025 ergocalciferol (Vitamin D-2) 1.25 MG (11296 UT) capsuleIndications: Vitamin D deficiency Take 1 [...] A Interventional Radiology [address] [place] [address] 06/27/2025 10:30 AM EDT Appointment [facility] Inter[facility] Radiology [address] [place] [address] 07/04/2025 10:30 AM EDT Appointment [facility] Inter[facility] Radiology [address] [place] [address] 07/04/2025 11:30 AM EDT Appointment [facility] Interventional Radiology [address] [place] [address] 07/09/2025 2:40 PM EDT Office Visit [facility] [address] [facility], [address] [place] [address] Ar Dominique MD [address] [facility] [address] [place] [address] 07/11/2025 10:30 AM EDT Appointment [facility] Interventional Radiology [address] [place] [address] 07/11/2025 11:30 AM EDT Appointment [facility] Interventional Radiology [address] [place] [address] 07/18/2025 10:30 AM EDT Appointment [facility] Interventional Radiology [address] [place] [address] 07/18/2025 11:30 AM EDT Appointment [facility] Inter[facility] Radiology [address] [place] [address] 07/25/2025 10:30 AM EDT Appointment [facility] Inter[facility] Radiology [address] [place] [address] 07/25/2025 11:30 AM EDT Appointment [facility] Interventional Radiology [address] [place] [address] 07/31/2025 9:00 AM EDT Office Visit [address] [place] [address] Alvarez Zimmer MD [address] [place] [address] 08/20/2025 9:30 AM EDT Clinical Support [facility] [place] [address] [place] [address] 08/20/2025 10:30 AM EDT Social Work [facility] [place] [address] [place] [address] [place] [address] 08/20/2025 11:00 AM EDT Office Visit [facility] [place] [address] [place] [address] Jude Duque MD [address] [place] [address] 10/30/2025 1:20 PM EST Office Visit [facility] End[facility]ology [address] [place] [address] Sharif Moreno, DPM [address] [place] [address] documented as of this encounter Procedures Procedure Name Priority Date/Time Associated Diagnosis Comments XR CHEST 1 VIEW STAT 05/16/2025 11:14 AM EDT documented in this encounter Results [...] MD on 05/16/2025 11:27 AM us Micheal E Pee WOOD ROUTER, DNP IMG XR PROCEDURES Tari l Result documented in this encounter Visit Diagnoses Not [...] documented as of this encounter Care Teams Cash Grain Farmer Relationship Specialty Start Date End Date Alvarez Zimmer MD [address] [place] [address] PCP - General Family Medicine 12/07/24 Lea Fernando [address] [place] [address] Manager Quality Endocrinology 08/29/24 Rachel Ray APRN [address] [place] [address] Nurse Practitioner Gastroenterology 09/24/24 documented as of this encounter
--- OUTSIDE RECORDS SUMMARY | 2025-05-17 09:20 | XMS_ITS | Encounter Summary ---
Author Organization [facility] Address [address] [place] [address] Care Team Providers Care Ent Surgeon Name Role Phone Lea Fernando Unavailable [phone] Rachel Ray FOIL SPINNER Unavailable [phone] Alvarez Zimmer MD Primary Care Provider [phone] Reason for Referral * Consultation (Routine) - Authorized Specialty Diagnoses / Procedures Referred By Contac t Referred To Contact Diagnoses Type 2 diabetes mellitus with hyperglycemia, with long-term current use of insulin (CMS/HCC) Enmanuel Wetzel MD [address] [address] Phone: tel: fax: Referral ID Status Reason Start Date Expiration Date V isits Requested Visits Authorized [id number] Authorized 05/17/2025 11/16/2026 1 1 Encounter Details Date Type Department Care Team (Late st Contact Info) Description 05/17/2025 9:20 AM EDT Office Visit [facility] [address] [address] Enmanuel Wetzel MD [address] [facility] [address] [place] [address] Type 2 diabetes mellitus with hyperglycemia, with long-term current use of insulin (CMS/HCC) (Primary Dx); Chronic kidney disease, stage 3b ([facility]); Dyslipidemia Social History Tobacco Use Types Packs/Day [...] week 01/10/2025 How often do you attend [facility] or shinto services? Patient unable to answer 01/10/2025 Do you belong to any clubs o r organizations such as episcopalian groups, unions, fraternal or athletic groups, or [...] Recorded Patient Health Questionnaire-2 Score 1 05/07/2025 [facility] [place] of Occupat ional Health - Occupational Stress [...] any time in the past 12 m [facility], were you homeless or living [...] drink first t kennedy in the morning (EYE-PRINT LINE INSPECTOR) to steady your nerves or to get rid of a hangover? 0 10/22/2024 CAGE Questionnaire Score 0 024 Utilities Answer Date Recorded In the past 12 months has th [employer], gas, oil, or water [employer] threatened to shut off services in your [...] Location: home Patient confirms physically located in [place]? Yes Originating site: HealthCare Visit Type: Telecare [...] Mckeon, PharmD. Reviewed the office notes in [facility]. Subjective Gabi Zimmer is a 64 y.o. [...] was in 04/[address] Moreno (Forming Mill Operator). The patient has nephropathy. Spot urine Pr/Cr [...] soon. Electronically signed by: Enmanuel Wetzel MD [facility] [address] [place]. [address] PHONE [phone] FAX: [phone] documented in this encounter Plan of Treatment Upcoming Encounters Date Type Department Care Team (Late st Contact Info) Description 06/27/2025 9:30 AM EDT Appointment [facility] [address] [place] [address] 06/27/2025 10:30 AM EDT Appointment [facility] [address] [place] [address] 07/04/2025 10:30 AM EDT Appointment [facility] [address] [place] [address] 07/04/2025 11:30 AM EDT Appointment [facility] [address] [place] [address] 07/09/2025 2:40 PM EDT Office Visit Professional [facility] [address], [address] [place] [address] Ar Dominique MD [address] [place] [address] 07/11/2025 10:30 AM EDT Appointment [facility] [address] [place] [address] 07/11/2025 11:30 AM EDT Appointment [facility] [address] [place] [address] 07/18/2025 10:30 AM EDT Appointment [facility] [address] [place] [address] 07/18/2025 11:30 AM EDT Appointment [facility] [address] [place] [address] 07/25/2025 10:30 AM EDT Appointment [facility] [address] [place] [id number] 07/25/2025 11:30 AM EDT Appointment [facility] [address] [place] [id number] 07/31/2025 9:00 AM EDT Office Visit [facility] [address] [place] [address] Alvarez Zimmer MD [address] [place] [address] 08/20/2025 9:30 AM EDT Clinical Support [facility] [place] [address] [place] [address] 08/20/2025 10:30 AM EDT Social Work [facility] [place] [address] [place] [address] Deysi Ortega [place], [place] [phone] 08/20/2025 11:00 AM EDT Office Visit [facility] [place] [address] [place] [address] Jude Duque MD [address] [place] [address] 10/30/2025 1:20 PM EST Office Visit [facility] [address] [place] [id number] Sharif Moreno, ROSY [address] [place] [address] Scheduled Referrals Name Type Priority Associated Diagnoses Orde r Schedule Follow Up [facility] Outpatient Referral Routine Type 2 diabetes mellitus with hyperglycemia, with long-term current use of insulin ([facility]) Expected: 06/14/2025, Expires: 11/18/2026 documented as of this encounter Results * (ABNORMAL) Basic metabolic panel (05/30/2025 9:59 AM EDT) Glucose, Plasma 199(H) 74 - 99 mg/dL 05/30/2025 10:[address] [facility] BUN, Plasma 29(H) 8 - 23 mg/dL 05/30/2025 10:[address] [facility] Creatinine, Plasma 1.44(H) 0.60 - 1.10 mg/dL 05/30/2025 10:[address] [facility] BUN/Creatinine Ratio 20 05/30/2025 10:[address] [facility] Sodium, Plasma 140 136 - 145 mmol/L 05/30/2025 10:[address] [facility] Potassium, Plasma 5.0(H) 3.6 - 4.9 mmol/L 05/30/2025 10:[address] [facility] Chloride, Plasma 108(H) 97 - 107 mmol/L 05/30/2025 10:[address] [facility] CO2, Plasma 19(L) 22 - 29 mmol/L 05/30/2025 10:[address] [facility] Anion Gap 13 6 - 16 mmol/L 05/30/2025 10:[address] [facility] Total Calcium, Plasma 8.6(L) 8.9 - 10.2 mg/dL 05/30/2025 10:[address] [facility] eGFRcr 41.2 mL/min/1.7 3m*2 05/30/2025 10:[address] [facility] Comment:Reported eGFRcr in m L/min/1.73m2 is based the CKD-EPI 2020 equation that does not use a race coefficient. Blood Venous blood specimen / Unknown Venipuncture / Unknown 05/30/2025 9:59 AM EDT 05/30/2025 10:16 AM EDT us Enmanuel Wetzel MD LAB BLOOD ORDERABLES Final Resu lt [facility] [address] [place] [address] * (ABNORMAL) Insulin, random (05/30/2025 9:59 AM EDT) Insulin 32.7(H) 3.0 - 16.0 uU/mL 05/30/2025 12:[address] [facility] Blood Venous blood specimen / Unknown Venipuncture / Unknown 05/30/2025 9:59 AM EDT 05/30/2025 10:16 AM EDT us Enmanuel Wetzel MD LAB BLOOD ORDERABLES Final Resu lt Performing Organization Address [facility]/ZIP Co de Phone Number [facility] [address] [place] [address] * (ABNORMAL) Hemoglobin A1c (05/23/2025 9:27 AM EDT) Hemoglobin A1c 7.3(H) <5.7 % 05/23/2025 11:[address] [facility] Blood Venous blood specimen / Unknown Venipuncture / Unknown 05/23/2025 9:27 AM EDT 05/23/2025 9:[address] [facility] - 05/23/2025 11:03 AM EDT HA1C Interpretive Data: Diagnosis of Diabetes: Diabetic > or = 6.5% Pre-diabetic 5.7 to 6.4% Non-diabetic < or = 5.6% Glycemic Targets for Type I and Type II Diabetics: Non- Adults <7.0% Adults <6.0% Children and Adolescents <7.5% Source: [place] [employer]. Standards of medical care in diabetes,2017. Diabetes Care.2017:40 (suppl 1):S1-S135. us Enmanuel Wetzel MD LAB BLOOD ORDERABLES Final Resu lt Performing Organization Address City/[facility]/[place] [address] documented in this encounter Visit Diagnoses Diagnosis Type 2 diabetes mellitus with hyperglycemia, with long-term current use of insulin ([facility])- Primary Chronic kidney disease, stage 3b (CMS/HCC) [...] documented as of this encounter Care Teams Ent Surgeon Relationship Specialty Start Date End Date Alvarez Zimmer MD [address] [place] [address] PCP - General Family Medicine 12/07/24 Lea Fernando [address] [place] [phone] Ent Nurse Endocrinology 08/29/24 Rachel Ray, FOIL SPINNER [address] [facility] [address] [place] [phone] Nurse Practitioner Gastroenterology 09/24/24 documented as of this encounter
--- OUTSIDE RECORDS SUMMARY | 2025-05-23 08:31 | XMS_ITS | Encounter Summary ---
Author Organization Healthcare Address [address] [id number] Care Team Providers Care Rotary Shear Operator Name Role Phone Lea Fernando Unavailable [phone] Rachel Ray APRN Unavailable [phone] Alavrez Zimmer MD Primary Care Provider [phone] Reason for Referral * Clinic-Administered Medication (Routine) - Closed Specialty Diagnoses / Procedures Referred By Eder zhu Referred To Contact Diagnoses Other ascites Procedures NC ABDOM PARACENTESIS DX/THER W IMAGING GUIDANCE Micheal Glasgow APRN, DNP [address] [place] [address] Phone: tel: fax: [facility] [address] [place] [address] Phone: tel: fax: Referral ID Status Reason Start Date Expiration Date Visits Re quested Visits Authorized [id number] Closed 05/23/2025 11/22/2026 1 1 * Imaging (Routine) - Closed Specialty Diagnoses / Procedures Referred By Eder t Referred To Contact Radiology Diagnoses Other ascites Procedures US Guided Abdominal Paracentesis Marianna Gordon APRN [address] [place] [address] Phone: tel: fax: Referral ID Status Reason Start Date Expiration Date Visits Re quested Visits Authorized [id number] Closed 04/26/2025 10/26/2026 1 1 Reason for Visit * Imaging (Routine) - Closed Specialty Diagnoses / Procedures Referred By Eder zhu Referred To Contact Radiology Diagnoses Other ascites Procedures US Guided Abdominal Paracentesis Marianna Gordon APRN [address] [place] [address] Phone: tel: fax: Referral ID Status Reason Start Date Expiration Date Visits Re quested Visits Authorized [id number] Closed 04/26/2025 10/26/2026 1 1 Encounter Details Date Type Department Care Team (Late st Contact Info) Description 05/23/2025 8:31 AM EDT - 05/23/2025 8:47 AM EDT Hospital Encounter [facility] Interventional Radiology [address] [place] [address] Kael Mohan, RN INFECTION PREVENTION & CONTROL Other ascites; End-stage liver disease (CMS/HCC); Type 2 diabetes mellitus with hyperglycemia, with long-term current use of insulin (CMS/HCC) Discharge Disposition: Home or Self Care [...] often do you attend chur ch or sikh services? Patient unable to answer 01/10/2025 Do you belong to any clubs o r organizations such as restorationist groups, unions, fraternal or athletic groups, or [...] Recorded Patient Health Questionnaire-2 Score 1 05/07/2025 [facility] Questionnaire Answer Date [...] place to sleep or slept in a prison (including now)? Yes 08/29/2024 PHQ-9 Answer Date [...] time in the past 12 m [facility], were you homeless or living in a prison (including now)? No 03/06/2025 CAGE ASSESSMENT Answer [...] drink first t kennedy in the morning (EYE-MOTORIZED SQUAD LIEUTENANT) to steady your nerves or to get [...] Sign Reading Time Taken Comments Blood Pressure - - Pulse - - Temperature 36.7 C (98.1 F) 05/23/2025 8:44 AM EDT Respiratory Rate - - Oxygen Saturation - - Inhaled Oxygen Concentration - - Weight 86.9 kg (191 lb 9.3 oz) 05/23/2025 8:44 A M EDT Height 165.1 cm (5' 5 ) 05/23/2025 8:44 AM EDT Body Mass Index 31.88 05/23/2025 8:44 AM EDT documented in this encounter Discharge Instructions * Discharge Instructions* Kael Mohan RN - 05/23/2025 12:49 PM EDT *Interventional Radiology* (IR) Questions/Concerns & Appointments: If there are questions or concerns after discharge please call: [facility]ascular and Interventional Radiology Clinic at [phone] Tuesday - Tuesday 8:00 AM to 4:30 PM After hours, weekends, and holidays please call [phone] and ask for the Interventional Radiology provider/Resident on-call Intervention Radiology Appointments: If you need to reschedule a procedure, please call our Schedulers at [phone], option [phone]. If you need to schedule or reschedule a clinic appointment, please call [phone]. [facility] [address] [place] [address] documented in this encounter Medications at Time [...] by mouth daily. 30 tablet 2 04/17/2025 5 cholecalciferol (Vitamin D-3) 25 MCG (1000 UT) tablet Take 1 tablet by mouth daily. 90 tablet 2 04/01/2025 ciprofloxacin (Cipro) 500 MG tabletIndications:A ltered mental status, unspecified altered mental status type Take 1 tablet by mouth daily. 90 tablet 1 03/01/2025 ergocalciferol (Vitamin D-2) 1.25 MG (10119 UT) capsuleIndications: Vitamin D deficiency Take 1 capsule by mouth 1 time per week. 8 capsule 3 04/10/2025 5 fluticasone (Flonase) 50 MCG/ACT nasal sprayIndications:ET D [...] hyperglycemia, with long-term current use of insulin ([facility]) Inject 0.6 mg [...] to area in chest. 100 g 03/05/2025 lactulose (Chronulac) 10 GM/15ML oral solution Take [...] encounter Miscellaneous Notes * Post-Procedure Note - Micheal Glasgow APRN, ANGELLA - 05/23/2025 9:30 AM EDT Vascular and Interventional Radiology Brief Postprocedure Note Provider: ADRI Glasgow Pre-operative Diagnosis: Ascites Post-operative Diagnosis: Same Type of Anesthesia: Local Description of Findings: Ascites Technical/Surgical Procedures Used: Paracentesis Complications: None Estimated Blood Loss: none Procedure Events Event Event Time See detailed result report with images in PACS. The patient tolerated the procedure well without incident or complication and is in stable condition. * Interval H&P Note - Micheal Glasgow APRN, DNP - 05/23/2025 9:30 AM EDT Reviewed H&P, no acute changes [...] Total DLP (Dose-Length Product): 1722.82 mGy.cm (accession [id number]), 1722.82 mGy.cm (accession [id number]). Please note: The reported value represents the [...] no aneurysm of either internal carotid artery. [place] of [place] and Major Peripheral Branches: There [...] is no recent study available for direct [id number] comparison. Assessment & Plan: Decompensated MASH cirrhosis [...] the care of this patient. Shaniqua Mccurdy, SUPERVISOR CORRESPONDENCE SECTION Interventional Radiology [phone] [1] Past Medical History: Diagnosis Date ADHD (attention deficit hyperactivity disorder) Allergic Anxiety disorder, unspecified Anxiety Bleeding gums Blood in urine Cataract Chronic kidney disease Cirrhosis (CMS/HCC) Colon cancer screening 09/20/2019 Added automatically from request for surgery [id number] Coronary artery disease Depression 1995 Diabetes mellitus [...] 1979 BLADDER SURGERY N/A Bladder surgery from [facility] BREAST BIOPSY 2011 BREAST SURGERY 2010 BUNIONECTOMY Right CATARACT EXTRACTION Bilateral 2016 CHOLECYSTECTOMY 1980 ESOPHAGOGASTRODUODENOSCOPY HYSTERECTOMY N/A Hysterectomy from [facility] KNEE SURGERY Bilateral ORAL SURGERY N/A Oral surgery from [facility] OTHER SURGICAL HISTORY 2015 ROOT CANAL WISDOM [...] Rfl: 1 ergocalciferol (Vitamin D-2) 1.25 MG (96140 UT) capsule, Take 1 capsule by mouth [...] at a time per patient request, Disp: 79051 mL, Rfl: 11 omeprazole (PriLOSEC) 40 MG [...] 10 mL, 10 mL, Intravenous, PRN,Marianna Gordon SUPERVISOR CORRESPONDENCE SECTION documented in this encounter Plan of Treatment Upcoming Encounters Date Type Department Care Team (Late st Contact Info) Description 06/27/2025 9:30 AM EDT Appointment [facility] Interventional Radiology [address] [place] [address] 06/27/2025 10:30 AM EDT Appointment [facility] Interventional Radiology [address] [place] [address] 07/04/2025 10:30 AM EDT Appointment [facility] Interventional Radiology [address] [place] [address] 07/04/2025 11:30 AM EDT Appointment [facility] Interventional Radiology [address] [place] [address] 07/09/2025 2:40 PM EDT Office Visit [facility] [address], [address] [place] [address] Ar Dominique MD [address] [place] [address] 07/11/2025 10:30 AM EDT Appointment [facility] Interventional Radiology [address] [place] [address] 07/11/2025 11:30 AM EDT Appointment [facility] Interventional Radiology [address] [place] [address] 07/18/2025 10:30 AM EDT Appointment [facility] Interventional Radiology [address] [place] [address] 07/18/2025 11:30 AM EDT Appointment [facility] Inter[facility] Radiology [address] [place] [address] 07/25/2025 10:30 AM EDT Appointment [facility] Inter[facility] Radiology [address] [place] [address] 07/25/2025 11:30 AM EDT Appointment [facility] Interventional Radiology [address] [place] [address] 07/31/2025 9:00 AM EDT [facility] [address] [place] [address] Alvarez Zimmer MD [address] [place] [address] 08/20/2025 9:30 AM EDT Clinical Support [facility] [place] [address] [place] [address] 08/20/2025 10:30 AM EDT Social Work [facility] [place] [address] [place] [address] Deysi Ortega [place], [place] [id number] 08/20/2025 11:00 AM EDT Office Visit [facility] [place] [address] [place] [address] Jude Duque MD [address] [place] [address] 10/30/2025 1:20 PM EST Office Visit [facility] [address] [place] [address] Sharif Moreno, DPM [address] [place] [address] Scheduled Orders Name Type Priority Associated Diagnoses Orde r Schedule US Guided Abdominal Paracentesis Imaging Routine Other ascites Once for 1 Occurrences starting 05/23/2025 until 05/23/2025 documented as of this encounter Procedures Procedure Name Priority Date/Time Associated Diagnosis Comments XR CHEST 1 VIEW STAT 05/23/2025 12:38 PM EDT US GUIDED THORACENTESIS Routine 05/23/20 11:59 AM EDT Other ascites BODY FLUID CELL COUNT W/ MANUAL DIFFERENTIAL Routine 05/23/2025 11:07 AM EDT BODY FLUID, CYTOSPIN, PATHOLOGIST INTERPRETATION Routine 05/23/2025 11:07 AM EDT ALBUMIN, PERITONEAL FLUID Routine 05/23/2025 11:06 AM EDT PROTHROMBIN TIME(PT) / INR Routine 05/23/2025 9:27 AM EDT End-stage liver disease (CMS/HCC) CBC W/O DIFFERENTIAL Routine 05/23/2025 9:27 AM EDT End-stage liver disease (CMS/HCC) HEMOGLOBIN A1C Routine 05/23/2025 9:27 AM EDT Type 2 diabetes mellitus with hyperglycemia, with long-term current use of insulin (CMS/HCC) COMPREHENSIVE METABOLIC PANEL, PLASMA Routine 05/23/2025 9:27 AM EDT End-stage liver disease (CMS/HCC) documented in this encounter Results * XR Chest 1 View (05/23/2025 12:38 PM EDT) Anatomical Region Laterality Modality Chest Digital Radiogra phy Impressions 05/23/2025 12:44 PM EDT No pneumothorax. CRITICAL RESULT: No. COMMUNICATION: Per this written report. Drafted by Alvarez Brenner MD on 05/23/2025 12:43 PM Final report signed by Alvarez Brenner MD on 05/23/2025 12:44 PM Narrative 05/23/2025 12:44 PM EDT CLINICAL INDICATION: s/p thora TECHNIQUE: XR CHEST 1 VIEW COMPARISON: May 16, 2025 FINDINGS: Small right effusion. No pneumothorax is identified. No edema or airspace disease. Procedure Note Alvarez Brenner MD - 05/23/2025 CLINICAL INDICATION: s/p thora TECHNIQUE: XR CHEST 1 VIEW COMPARISON: May 16, 2025 FINDINGS: Small right effusion. No pneumothorax is identified. No edema or airspacedisease. IMPRESSION: No pneumothorax. CRITICAL RESULT: No. COMMUNICATION: Per this written report. Drafted by Alvarez Brenner MD on 05/23/2025 12:43 PM Final report signed by Alvarez Brenner MD on 05/23/2025 12:44 PM us Micheal E Pee SUPERVISOR CORRESPONDENCE SECTION, DNP IMG XR PROCEDURES Tari l Result * Body fluid, cytospin, pathologist interpretation (05/23/2025 11:07 AM EDT) Specimen Type Body Fluid LAB HEMATOLOGY METHOD 05/27/2025 4:32 PM EDT [facility] Specimen Source, Body Fluid Peritoneal Fluid LAB HEMATOLOGY METHOD 05/27/2025 4:32 PM EDT [facility] Clinical Diagnosis, Body Fluid Ascites LAB HEMATOLOGY METHOD 05/27/2025 4:32 PM EDT [facility] Interpretation , Body Fluid No evidence of malignancy; chronic inflammatory cells, light blood A resident was involved in the service. I attest I examined the relevant preparations for the specimens and confirmed the diagnosis or interpretation. 05/27/2025 4:32 PM EDT [facility] Pathologist Signature, Body Fluid 05/27/2025 4:32 PM EDT [facility] Comment:Reviewed by: Iza Blue MD LAB CP ASR DISCLAIMER Yes 05/27/2025 4:32 PM EDT [facility] Body Fluid Peritoneal fluid / Unknown Non-blood Collection / Unknown 05/23/2025 11:07 AM EDT 05/23/2025 2:32 PM EDT us Micheal E Pee SUPERVISOR CORRESPONDENCE SECTION, DNP LAB BODY FLUIDS AND ST OOLS ORDERABLES Final Result [facility] [address] [place] [address] * (ABNORMAL) Body Fluid Cell Count With Diff - Ascites (05/23/2025 11:07 AM EDT) Color, Body fluid [place] LAB HEMATOLOGY METHOD 05/23/2025 8:14 PM EDT [facility] Appearance, Body fluid Cloudy(A) LAB HEMATOLOGY METHOD 05/23/2025 8:14 PM EDT [facility] Volume, Body fluid 25.5 cc LAB HEMATOLOGY METHOD 05/23/2025 8:14 PM EDT [facility] Fluid Container Specimen received in miscellaneous container LAB HEMATOLOGY METHOD 05/23/2025 8:14 PM EDT [facility] Red Blood Cell Count, Body fluid 5,000 uL LAB HEMATOLOGY METHOD 05/23/2025 8:14 PM EDT [facility] Total Nucleated Cell Count, Body fluid 102 uL LAB HEMATOLOGY METHOD 05/23/2025 8:14 PM EDT [facility] Neutrophils %, Body fluid 1 % LAB HEMATOLOGY METHOD 05/23/2025 8:14 PM EDT [facility] Lymphocytes %, Body fluid 86 % LAB HEMATOLOGY METHOD 05/23/2025 8:14 PM EDT [facility] Monocytes/Macr ophages %, Body fluid 13 % LAB HEMATOLOGY METHOD 05/23/2025 8:14 PM EDT [facility] Eosinophils %, Body fluid 0 % LAB HEMATOLOGY METHOD 05/23/2025 8:14 PM EDT [facility] Lining/Mesothe lial Cells %, Body fluid 0 % LAB HEMATOLOGY METHOD 05/23/2025 8:14 PM EDT [facility] Neutrophils Absolute (PMN), Body fluid 1 uL LAB HEMATOLOGY METHOD 05/23/2025 8:14 PM EDT [facility] Lymphocytes Absolute, Body fluid 88 uL LAB HEMATOLOGY METHOD 05/23/2025 8:14 PM EDT [facility] Monocytes/Macr ophages Absolute, Body fluid 13 uL LAB HEMATOLOGY METHOD 05/23/2025 8:14 PM EDT [facility] Eosinophils Absolute, Body fluid 0 uL LAB HEMATOLOGY METHOD 05/23/2025 8:14 PM EDT [facility] Basophils Absolute, Body fluid 0 uL LAB HEMATOLOGY METHOD 05/23/2025 8:14 PM EDT [facility] Lining/Mesothe lial Cells Absolute, Body fluid 0 uL LAB HEMATOLOGY METHOD 05/23/2025 8:14 PM EDT [facility] Basophils %, Body fluid 0 % LAB HEMATOLOGY METHOD 05/23/2025 8:14 PM EDT [facility] Body Fluid Peritoneal fluid / Unknown Non-blood Collection / Unknown 05/23/2025 11:07 AM EDT 05/23/2025 2:32 PM EDT us Micheal E Pee SUPERVISOR CORRESPONDENCE SECTION, DNP LAB BODY FLUID S AND STOOLS ORDERABLES NO SPECIMEN TYPE/SOURCE Final Result [facility] [address] [place] [address] * Albumin - Ascites (05/23/2025 11:06 AM EDT) Albumin, Peritoneal Fluid 0.3 g/dL 05/23/2025 4:55 PM EDT [facility] Peritoneal Fluid Peritoneal cavity structure / Unknown Non-blood Collection / Unknown 05/23/2025 11:06 AM EDT 05/23/2025 2:32 PM EDT Narrative [facility] - 05/23/2025 4:55 PM EDT REPORTING RESULTS Reference Values: No established reference interval. Results should be interpreted in comparison to the concentration in blood and in conjunction with the clinical context. This test was developed and its performance characteristics determined by [facility]. The U.S. Food and Drug Administration has not approved or cleared this test; however, FDA clearance or approval is not currently required for clinical use. The results are not intended to be used as the sole means for clinical diagnosis or patient management decisions. us Micheal Glasgow SUPERVISOR CORRESPONDENCE SECTION, DNP LAB BODY FLUIDS AND ST OOLS ORDERABLES Final Result Performing Organization Address City/[facility]/ZIP Co de Phone Number [facility] [address] [place] [address] * (ABNORMAL) Hemoglobin A1c (05/23/2025 9:27 AM EDT) Hemoglobin A1c 7.3(H) <5.7 % 05/23/2025 11:03 AM EDT [facility] Blood Venous blood specimen / Unknown Venipuncture / Unknown 05/23/2025 9:27 AM EDT 05/23/2025 9:45 AM EDT Narrative [facility] - 05/23/2025 11:03 AM EDT HA1C Interpretive Data: Diagnosis of Diabetes: Diabetic > or = 6.5% Pre-diabetic 5.7 to 6.4% Non-diabetic < or = 5.6% Glycemic Targets for Type I and Type II Diabetics: Non- Adults <7.0% Adults <6.0% Children and Adolescents <7.5% Source: Citizen Of [place] Diabetes Association. Standards of medical care in diabetes,2017. Diabetes Care.2017:40 (suppl 1):S1-S135. Enmanuel Wetzel MD LAB BLOOD ORDERABLES Final Resu lt [facility] [address] [place] [address] * (ABNORMAL) Protime-INR (05/23/2025 9:27 AM EDT) Prothrombin Time 19.7(H) 12.0 - 14.3 sec LAB COAGULATION METHOD 05/23/2025 10:03 AM EDT [facility] INR 1.7(H) 0.9 - 1.1 LAB COAGULATION METHOD 05/23/2025 10:03 AM EDT [facility] Blood Venous blood specimen / Unknown Venipuncture / Unknown 05/23/2025 9:27 AM EDT 05/23/2025 9:41 AM EDT Narrative [facility] - 05/23/2025 10:03 AM EDT OPTIMAL INR RANGES FOR PATIENT ON ORAL ANTICOAGULANT THERAPY Prevention of venous thromboembolism INR 2.0 to 3.0 In patients with heart disease: Atrial fibrillation INR 2.0 to 3.0 Valvular heart disease INR 2.0 to 3.0 Tissue heart valves INR 2.0 to 3.0 Mechanical prosthetic valves INR 2.5 to 3.5 Prevention of recurrent NM INR 2.5 to 3.5 us Gerson Arora MD LAB BLOOD ORDERABLES Final Resul t [facility] [address] [place] [address] * (ABNORMAL) Comprehensive metabolic panel (05/23/2025 9:27 AM EDT) Glucose, Plasma 169(H) 74 - 99 mg/dL 05/23/2025 10:11 AM EDT [facility] BUN, Plasma 23 8 - 23 mg/dL 05/23/2025 10:11 AM EDT [facility] Creatinine, Plasma 1.30(H) 0.60 - 1.10 mg/dL 05/23/2025 10:11 AM EDT [facility] BUN/Creatinine Ratio 18 05/23/2025 10:11 AM EDT [facility] Sodium, Plasma 138 136 - 145 mmol/L 05/23/2025 10:11 AM EDT [facility] Potassium, Plasma 4.7 3.6 - 4.9 mmol/L 05/23/2025 10:11 AM EDT [facility] Chloride, Plasma 107 97 - 107 mmol/L 05/23/2025 10:11 AM EDT [facility] CO2, Plasma 21(L) 22 - 29 mmol/L 05/23/2025 10:11 AM EDT [facility] Anion Gap 10 6 - 16 mmol/L 05/23/2025 10:11 AM EDT [facility] Total Calcium, Plasma 8.6(L) 8.9 - 10.2 mg/dL 05/23/2025 10:11 AM EDT [facility] Total Protein 7.2 6.3 - 7.9 g/dL 05/23/2025 10:11 AM EDT [facility] Albumin, Plasma 3.3(L) 3.5 - 5.2 g/dL 05/23/2025 10:11 AM EDT [facility] AST, Plasma 43(H) 10 - 35 U/L 05/23/2025 10:11 AM EDT [facility] ALT, Plasma 19 10 - 35 U/L 05/23/2025 10:11 AM EDT [facility] Alkaline Phosphatase, Plasma 199(H) 46 - 142 U/L 05/23/2025 10:11 AM EDT [facility] Total Bilirubin, Plasma 3.6(H) 0.2 - 1.1 mg/dL 05/23/2025 10:11 AM EDT [facility] eGFRcr 46.6 mL/min/1.7 3m*2 05/23/2025 10:11 AM EDT [facility] Comment:Reported eGFRcr in m L/min/1.73m2 is based the CKD-EPI 2020 equation that does not use a race coefficient. Blood Venous blood specimen / Unknown Venipuncture / Unknown 05/23/2025 9:27 AM EDT 05/23/2025 9:41 AM EDT us Gerson Arora MD LAB BLOOD ORDERABLES Final Resul t [facility] [address] [place] [address] * (ABNORMAL) CBC w/o differential (05/23/2025 9:27 AM EDT) WBC Count 3.41(L) 3.70 - 10.30 10*3/uL LAB HEMATOLOGY METHOD 05/23/2025 9:52 AM EDT [facility] RBC Count 3.47(L) 3.90 - 5.20 10*6/uL LAB HEMATOLOGY METHOD 05/23/2025 9:52 AM EDT [facility] HGB 10.7(L) 11.2 - 15.7 g/dL LAB HEMATOLOGY METHOD 05/23/2025 9:52 AM EDT [facility] HCT 33.1(L) 34.0 - 45.0 % LAB HEMATOLOGY METHOD 05/23/2025 9:52 AM EDT [facility] Platelet Count 62(L) 155 - 369 10*3/uL LAB HEMATOLOGY METHOD 05/23/2025 9:52 AM EDT [facility] MCV 95 79 - 98 fL LAB HEMATOLOGY METHOD 05/23/2025 9:52 AM EDT [facility] MCH 30.8 26.0 - 32.0 pg LAB HEMATOLOGY METHOD 05/23/2025 9:52 AM EDT [facility] MCHC 32.3 30.7 - 35.5 g/dL LAB HEMATOLOGY METHOD 05/23/2025 9:52 AM EDT [facility] RDW 18.3(H) 11.5 - 14.5 % LAB HEMATOLOGY METHOD 05/23/2025 9:52 AM EDT [facility] MPV 11.8 8.8 - 12.5 fL LAB HEMATOLOGY METHOD 05/23/2025 9:52 AM EDT [facility] nRBC 0.0 <=0.0 per 100 WBCs LAB HEMATOLOGY METHOD 05/23/2025 9:52 AM EDT [facility] Blood Venous blood specimen / Unknown Venipuncture / Unknown 05/23/2025 9:27 AM EDT 05/23/2025 9:45 AM EDT us Gerson Arora MD LAB BLOOD ORDERABLES Final Resul t [facility] [address] [place] [address] documented in this encounter Visit Diagnoses Diagnosis Other ascites End-stage liver disease (CMS/HCC) Other sequelae of chronic liver disease Type 2 diabetes mellitus with hyperglycemia, with long-term current use of insulin (CMS/HCC) documented in this encounter Administered Medications Inactive Administered Medications - up to 3 most recent administrations Medication Order MAR Action Action Date Dose Rate Site albumin human 25 % infusion 37.5 g 37.5 g, Intravenous, Once as needed, 1 dose, Starting on Sarahi 05/23/25 at 1059, Until Sarahi 05/23/25 at 1112, Routine, Intraprocedure, For 5-6.9 L drained New Bag 05/23/2025 11:12 AM EDT 37.5 g lidocaine 0.9% in sodium bicarbonate (buffered lidocaine) solution solution As needed, Starting on Sarahi 05/23/25 at 1146, Until Sarahi 05/23/25 at 1146, Routine, Intraprocedure Given 05/23/2025 11:46 AM EDT 10 mL lidocaine 1% in sodium bicarbonate (buffered lidocaine)10 mL 10 mL, Infiltration, Once, 1 dose, On Sarahi 05/23/25 at 0930, Routine, Holding - Preprocedure Given 05/23/2025 10:53 AM EDT 10 mL documented in this encounter Additional Health Concerns Assessment Noted Time PHQ-9 Depression Total Score: 0 03/06/20 1:21 PM EDT A fall risk assessment has been complete d for the patient 05/07/2025 9:12 AM EDT A Body Mass Index follow-up plan has been documented for the patient 05/23/2025 12:50 PM EDT documented as of this encounter Care Teams Rotary Shear Operator Relationship Specialty Start Date End Date Alvarez Zimmer MD [address] [place] [address] PCP - General Family Medicine 12/07/24 Lea Fernando [address] [place] [address] English Horn Player Endocrinology 08/29/24 Rachel Ray APRN [address] [place] [address] Nurse Practitioner Gastroenterology 09/24/24 documented as of this encounter
--- OUTSIDE RECORDS SUMMARY | 2025-05-23 08:48 | XMS_ITS | Encounter Summary ---
Author Organization Healthcare Address [address] [place] [address] Care Team Providers Care Aircraft Structural Design Engineer Name Role Phone Lea Fernando Unavailable [phone] Rachel Ray EPIC KALEIDOSCOPE ANALYST Unavailable [phone] Alvarez Zimmer MD Primary Care Provider [phone] Reason for Referral * Imaging (Routine) - Closed Specialty Diagnoses / Procedures Referred By Contac t Referred To Contact Radiology Diagnoses Other ascites Procedures US Guided Thoracentesis Marianna Gordon APRN [address] [place] [address] Phone: tel: fax: Referral ID Status Reason Start Date Expiration Date Visits Re quested Visits Authorized [id number] Closed 04/26/2025 10/26/2026 1 1 Reason for Visit * Imaging (Routine) - Closed Specialty Diagnoses / Procedures Referred By Contac t Referred To Contact Radiology Diagnoses Other ascites Procedures US Guided Thoracentesis Marianna Gordon APRN [address] [place] [address] Phone: tel: fax: Referral ID Status Reason Start Date Expiration Date Visits Re quested Visits Authorized [id number] Closed 04/26/2025 10/26/2026 1 1 Encounter Details Date Type Department Care Team (Late st Contact Info) Description 05/23/2025 8:48 AM EDT - 05/23/2025 12:18 PM EDT Hospital Encounter [facility] Inter[facility] Radiology [address] [place] [address] Kael Mohan, RN INFECTION PREVENTION & CONTROL Other ascites Discharge Disposition: Home or Self [...] week 01/10/2025 How often do you attend [facility] or amish services? Patient unable to answer 01/10/2025 Do you belong to any clubs o r organizations such as adventism groups, unions, fraternal or athletic groups, or [...] Recorded Patient Health Questionnaire-2 Score 1 05/07/2025 [facility]at ional [facility] - [...] any time in the past 12 m [facility], were you homeless or living in [...] drink first t kennedy in the morning (EYE-SUPERVISOR FILTER ASSEMBLY) to steady your nerves or to get [...] 1 03/01/2025 ergocalciferol (Vitamin D-2) 1.25 MG (85472 UT) capsuleIndications: Vitamin D deficiency Take 1 [...] hyperglycemia, with long-term current use of insulin ([facility]) Inject 0.6 mg under the skin [...] Appointment [facility] Inter[facility] Radiology [address] [place] [address] 06/27/2025 10:30 AM EDT Appointment [facility]iology [address] [place] [address] 07/04/2025 10:30 AM EDT Appointment [facility]iology [address] [place] [address] 07/04/2025 11:30 AM EDT Appointment [facility] Radiology [address] [place] [address] 07/09/2025 2:40 PM EDT Office Visit [facility] Bone & Mineral Metabolism [address], [address] [place] [address] Ar Dominique MD [address] [facility] [address] [place] [address] 07/11/2025 10:30 AM EDT Appointment [facility] Inter[facility] Radiology [address] [place] [address] 07/11/2025 11:30 AM EDT Appointment [facility] Radiology [address] [place] [address] 07/18/2025 10:30 AM EDT Appointment [facility] [address] [place] [address] 07/18/2025 11:30 AM EDT Appointment [facility]iology [address] [place] [address] 07/25/2025 10:30 AM EDT Appointment [facility] Radiology [address] [place] [address] 07/25/2025 11:30 AM EDT Appointment [facility] Inter[facility] Radiology [address] [place] [address] 07/31/2025 9:00 AM EDT [facility] [address] [place] [address] Alvarez Zimmer MD [address] [place] [address] 08/20/2025 9:30 AM EDT Clinical Support [facility] [place] [address] [address] 08/20/2025 10:30 AM EDT Social Work [facility] [place] [address] [place] [address] Deysi Ortega [place], [place] [id number] 08/20/2025 11:00 AM EDT Office Visit [facility] [place] [address] [facility] [address] [place] [address] Jude Duque MD [address] [place] [address] 10/30/2025 1:20 PM EST Office Visit [facility] Endocrinology [address] [place] [address] Sharif Moreno, ROSY [address] [place] [address] documented as of this encounter Procedures Procedure Name Priority Date/Time Associated Diagnosis Comments US GUIDED THORACENTESIS Routine 05/23/2025 11:59 AM EDT Other ascites documented in this encounter Results * US Guided Thoracentesis (05/23/2025 11:59 AM EDT) Anatomical Region Laterality Modality Chest Ultrasound Impressions 05/26/2025 8:44 PM EDT Moderate right sided pleural effusion. No safe percutaneous window for thoracentesis; procedure aborted. CRITICAL RESULT: No. COMMUNICATION: Per this written report. By electronically signing this report, I, the attending physician, attest that I was not present for the procedure(s) but agree with the final edited report. Drafted by SOLANGE Toure on 05/23/2025 12:26 PM Final report signed by Gisella Mcguire MD on 05/26/2025 8:44 PM Narrative 05/26/2025 8:44 PM EDT CLINICAL INDICATION: 64 y.o. 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 Patient presents for thoracentesis. TECHNIQUE: Hyperion Administrator: ADRI Glasgow Secondary Program Engagement Director: None. Procedure: After discussion of risks and benefits, [...] space. 1% lidocaine used for local analgesia. After lidocaine instilled, despite repositioning, lung sliding within window. No safe percutaneous window for procedure. Procedure aborted. COMPARISON: None. FINDINGS: Moderate right pleural effusion. COMPLICATION: No. Procedure Note Gisella Mcguire MD - 05/26/2025 CLINICAL INDICATION: 64 y.o. 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 Patient presents for thoracentesis. TECHNIQUE: Hyperion Administrator: ADRI Glasgow Secondary Program Engagement Director: None. Procedure: After discussion of risks and benefits, [...] pleural space. 1% lidocaine used for localanalgesia. After lidocaine instilled, despite repositioning, lung slidingwithin window. No safe percutaneous window for procedure. Procedureaborted. COMPARISON: None. FINDINGS: Moderate right pleural effusion. COMPLICATION: No. IMPRESSION: Moderate right sided pleural effusion. No safe percutaneous window for thoracentesis; procedure aborted. CRITICAL RESULT: No. COMMUNICATION: Per this written report. By electronically signing this report, I, the attending physician, attestthat I was not present for the procedure(s) but agree with the finaledited report. Drafted by SOLANGE Toure on 05/23/2025 12:26 PM Final report signed by Gisella Mcguire MD on 05/26/2025 8:44 PM us Mariannaarelis Gordon EPIC KALEIDOSCOPE ANALYST IMG US PROCEDURES Final Resu lt documented in this encounter Visit Diagnoses Diagnosis Other ascites End-stage liver disease (CMS/HCC) Other sequelae of chronic liver disease Type 2 diabetes mellitus with hyperglycemia, with long-term current use of insulin (CMS/HCC) Other ascites documented in this encounter Additional Health Concerns Assessment Noted Time PHQ-9 Depression Total Score: 0 03/06/20 1:21 PM EDT A fall risk assessment has been complete d for the patient 05/07/2025 9:12 AM EDT A Body Mass Index follow-up plan has been documented for the patient 05/23/2025 12:50 PM EDT documented as of this encounter Care Teams Aircraft Structural Design Engineer Relationship Specialty Start Date End Date Alvarez Zimmer MD [address] [place] [address] PCP - General Family Medicine 12/07/24 Lea Fernando [address] [place] [address] Bill Cutter Endocrinology 08/29/24 Rachel Ray APRN [address] [place] [address] Nurse Practitioner Gastroenterology 09/24/24 documented as of this encounter
--- OUTSIDE RECORDS SUMMARY | 2025-05-23 12:19 | XMS_ITS | Encounter Summary ---
Author Organization Healthcare Address [address] [place] [address] Care Team Providers Care Veneer Jointer Offbearer Name Role Phone Lea Fernando Unavailable [phone] Rachel Ray PROVIDER RELATIONS ADVOCATE Unavailable [phone] Alvarez Zimmer MD Primary Care Provider [phone] Encounter Details Date Type Department Care Team (Latest Contact Info) Description 05/23/2025 12:19 PM EDT - 05/23/2025 11:59 PM EDT Hospital Encounter [facility] Radiology [address] [place] [address] Discharge Disposition: Home or Self Care Social [...] often do you attend chur ch or hinduism services? Patient unable to answer 01/10/2025 Do you belong to any clubs o r organizations such as holiness groups, unions, fraternal or athletic groups, or [...] Recorded Patient Health Questionnaire-2 Score 1 05/07/2025 [facility] - Occupational Stress Questionnaire Answer Date [...] place to sleep or slept in a mcfp (including now)? Yes 08/29/2024 PHQ-9 Answer Date [...] were you homeless or living in a mcfp (including now)? No 03/06/2025 CAGE ASSESSMENT Answer [...] drink first t kennedy in the morning (EYE-MATERIAL ASSEMBLER) to steady your nerves or to get [...] 1 03/01/2025 ergocalciferol (Vitamin D-2) 1.25 MG (10252 UT) capsuleIndications: Vitamin D deficiency Take 1 [...] [facility] Interventional Radiology [address] [place] [address] 06/27/2025 10:30 AM EDT Appointment [facility] Inter[facility] Radiology [address] [place] [address] 07/04/2025 10:30 AM EDT Appointment [facility] Radiology [address] [place] [address] 07/04/2025 11:30 AM EDT Appointment [facility] Inter[facility] Radiology [address] [place] [address] 07/09/2025 2:40 PM EDT Office Visit [facility] Bone & Mineral Metabolism [address] [facility] [address] [facility] [address] [facility] [address], [address] [place] [address] Ar Dominique MD [address] [facility] [address] [place] [address] 07/11/2025 10:30 AM EDT Appointment [facility] Inter[facility] Radiology [address] [place] [address] 07/11/2025 11:30 AM EDT Appointment [facility] Inter[facility] Radiology [address] [place] [address] 07/18/2025 10:30 AM EDT Appointment [facility] Interventional Radiology [address] [place] [address] 07/18/2025 11:30 AM EDT Appointment [facility] Inter[facility] Radiology [address] [place] [address] 07/25/2025 10:30 AM EDT Appointment [facility]iology [address] [place] [address] 07/25/2025 11:30 AM EDT Appointment [facility] Inter[facility] Radiology [address] [place] [address] 07/31/2025 9:00 AM EDT Office Visit [address] [place] [address] Alvarez Zimmer MD [address] [place] [address] 08/20/2025 9:30 AM EDT Clinical Support [facility] [place] [address] [place] [address] 08/20/2025 10:30 AM EDT Social Work [facility] [place] [address] [place] [address] [place] [address] 08/20/2025 11:00 AM EDT Office Visit [facility] [place] [address] [place] [address] Jude Duque MD [address] [place] [address] 10/30/2025 1:20 PM EST Office Visit [facility] Endocrinology [address] [place] [address] Sharif Moreno, DPM [address] [place] [address] documented as of this encounter Procedures Procedure Name Priority Date/Time Associated Diagnosis Comments XR CHEST 1 VIEW STAT 05/23/2025 12:38 PM EDT documented in this encounter Results [...] 05/23/2025 12:44 PM us Micheal E Pee PROVIDER RELATIONS ADVOCATE, DNP IMG XR PROCEDURES Tari l Result [...] documented as of this encounter Care Teams Veneer Jointer Offbearer Relationship Specialty Start Date End Date Alvarez Zimmer MD [address] [place] [address] PCP - General Family Medicine 12/07/24 Lea Fernando [address] [place] [address] Vrt Mechanic Endocrinology 08/29/24 Rachel Ray APRN [address] [place] [address] Nurse Practitioner Gastroenterology 09/24/24 documented as of this encounter
--- OUTSIDE RECORDS SUMMARY | 2025-05-30 08:58 | XMS_ITS | Encounter Summary ---
Author Organization Healthcare Address [address] [place] [address] Care Team Providers Care Heel Attacher Name Role Phone Lea Fernando Unavailable [phone] Rachel Ray STATISTICS TUTOR Unavailable [phone] Alvarez Zimmer MD Primary Care Provider [phone] Tamera Isabel LPN Unavailable Unavailabl e Reason for Referral * Clinic-Administered Medication (Routine) - Closed Specialty Diagnoses / Procedures Referred By Eder t Referred To Contact Diagnoses Other ascites Procedures RI ABDOM PARACENTESIS DX/THER W IMAGING GUIDANCE Marianna Gordon APRN [address] [place] [address] Phone: tel: fax: [facility] [address] [place] [address] Phone: tel: fax: Referral ID Status Reason Start Date Expiration Date Visits Re quested Visits Authorized [id number] Closed 05/30/2025 11/29/2026 1 1 * Imaging (Routine) - Closed Specialty Diagnoses / Procedures Referred By Eder t Referred To Contact Radiology Diagnoses Other ascites Procedures US Guided Abdominal Paracentesis Marianna Gordon APRN [address] [place] [address] Phone: tel: fax: Referral ID Status Reason Start Date Expiration Date Visits Re quested Visits Authorized [id number] Closed 04/26/2025 10/26/2026 1 1 Reason for Visit * Imaging (Routine) - Closed Specialty Diagnoses / Procedures Referred By Contac t Referred To Contact Radiology Diagnoses Other ascites Procedures US Guided Abdominal Paracentesis Marianna Gordon APRN [address] [place] [address] Phone: tel: fax: Referral ID Status Reason Start Date Expiration Date Visits Re quested Visits Authorized [id number] Closed 04/26/2025 10/26/2026 1 1 Encounter Details Date Type Department Care Team (Late st Contact Info) Description 05/30/2025 8:58 AM EDT - 05/30/2025 11:59 PM EDT Hospital Encounter [facility] Interventional Radiology [address] [place] [address] Shirley Monge RN [facility]-VASCULAR & INTERVENTIONAL RADIOLOGY Other ascites; Type 2 diabetes mellitus with hyperglycemia, with long-term current use of insulin (CMS/HCC); Chronic kidney disease, stage 3b ([facility]/HCC) Discharge Disposition: Home or Self Care Social [...] How often do you attend [facility] or orthodoxy services? Patient unable to answer 01/10/2025 Do you belong to any clubs o r organizations such as mormon groups, unions, fraternal or athletic groups, or [...] place to sleep or slept in a custodial (including now)? Yes 08/29/2024 PHQ-9 Answer Date [...] were you homeless or living in a custodial (including now)? No 03/06/2025 Humiliation, Afraid, Rape, [...] How often do you attend chur or orthodoxy services? Never 05/29/2025 Do you belong to any clubs o r organizations such as mormon groups, unions, fraternal or athletic groups, or [...] more drinks on one occasion? Never 05/29/2025 [facility] - Occupational Stress Questionnaire Answer Date [...] were you homeless or living in a custodial (including now)? No 05/29/2025 CAGE ASSESSMENT Answer [...] drink first t kennedy in the morning (EYE-TALENT ANALYST) to steady your nerves or to get rid of a hangover? 0 10/22/2024 CAGE Questionnaire Score 0 024 Utilities Answer Date Recorded In the past 12 months has th e [employer], gas, oil, or water [employer] threatened to shut off services in your [...] call: [facility] Interventional Radiology Clinic at [phone] Tuesday - Tuesday 8:00 AM to 4:30 PM After hours, weekends, and holidays please call [phone] and ask for the Interventional Radiology provider/Resident on-call For Emergencies please go to the nearest Emergency Room or dial 911. Intervention Radiology Appointments: If you need to reschedule a procedure, please call our Schedulers at [phone], option 4. If you need to schedule or reschedule a clinic appointment, please call [phone]. [facility] [address], [facility] [place] [id number] documented in this encounter Medications at Time [...] 1 03/01/2025 ergocalciferol (Vitamin D-2) 1.25 MG (64396 UT) capsuleIndications: Vitamin D deficiency Take 1 [...] hyperglycemia, with long-term current use of insulin ([facility]) Inject 0.6 mg [...] from the original note were not included. [id number] Discharge Instructions for Paracentesis Paracentesis is a [...] fainting. Last Reviewed Date: 2025 00:00:00 ?? [id number] The [employer]. All rights reserved. This information is not intended as a substitute for professional medical care. Always follow your healthcare professional's instructions. * Post-Procedure Note - Marianna Gordon APRN - 05/30/2025 9:30 AM EDT [facility] Inter[facility] Radiology Brief Postprocedure Note Performed by: Marianna Gordon APRN Director Public Policy: LOUISE Pre-operative Diagnosis: ascites Post-operative Diagnosis: same [...] Total DLP (Dose-Length Product): 1722.82 mGy.cm (accession [id number]), 1722.82 mGy.cm (accession [id number]). Please note: The reported value represents the [...] no aneurysm of either internal carotid artery. [place] and Major Peripheral Branches: There [...] is no recent study available for direct lieq-td-lopg comparison. Assessment & Plan: Decompensated MASH cirrhosis [...] the care of this patient. Shaniqua Mccurdy, STATISTICS TUTOR Interventional Radiology [phone] [1] Past Medical History: Diagnosis Date ADHD (attention deficit hyperactivity disorder) Allergic Anxiety disorder, unspecified Anxiety Bleeding gums Blood in urine Cataract Chronic kidney disease Cirrhosis (CMS/HCC) Colon cancer screening 09/20/2019 Added automatically from request for surgery [id number] Coronary artery disease Depression 1995 Diabetes mellitus [...] 1979 BLADDER SURGERY N/A Bladder surgery from [facility] BREAST BIOPSY 2011 BREAST SURGERY 2010 BUNIONECTOMY Right CATARACT EXTRACTION Bilateral 2016 CHOLECYSTECTOMY 1979 ESOPHAGOGASTRODUODENOSCOPY HYSTERECTOMY N/A Hysterectomy from [facility] KNEE SURGERY Bilateral ORAL SURGERY N/A Oral surgery from [facility] OTHER SURGICAL HISTORY 2015 ROOT CANAL WISDOM [...] Rfl: 1 ergocalciferol (Vitamin D-2) 1.25 MG (44536 UT) capsule, Take 1 capsule by mouth [...] at a time per patient request, Disp: 31313 mL, Rfl: 11 omeprazole (PriLOSEC) 40 MG [...] Appointment [facility] Inter[facility] Radiology [address] [place] [address] 06/27/2025 10:30 AM EDT Appointment [facility] Inter[facility] Radiology [address] [place] [address] 07/04/2025 10:30 AM EDT Appointment [facility] Inter[facility] Radiology [address] [place] [address] 07/04/2025 11:30 AM EDT Appointment [facility] Interventional Radiology [address] [place] [address] 07/09/2025 2:40 PM EDT Office Visit [facility] [address], [address] [place] [address] Ar Dominique MD [address] [place] [address] 07/11/2025 10:30 AM EDT Appointment [facility] Inter[facility] Radiology [address] [place] [address] 07/11/2025 11:30 AM EDT Appointment [facility] Inter[facility] Radiology [address] [place] [address] 07/18/2025 10:30 AM EDT Appointment [facility]iology [address] [place] [address] 07/18/2025 11:30 AM EDT Appointment [facility] Inter[facility]iology [address] [place] [address] 07/25/2025 10:30 AM EDT Appointment [facility] [address] [place] [address] 07/25/2025 11:30 AM EDT Appointment [facility] Inter[facility] Radiology [address] [place] [address] 07/31/2025 9:00 AM EDT Office Visit [facility] [address] [place] [address] Alvarez Zimmer MD [address] [place] [address] 08/20/2025 9:30 AM EDT Clinical Support [facility] [address] [facility] [address] [place] [address] 08/20/2025 10:30 AM EDT Social Work [facility] [address] [place] [address] Deysi Ortega [place], [place] [id number] 08/20/2025 11:00 AM EDT Office Visit [facility] [address] [place] [address] Jude Duque MD [address] [place] [address] 10/30/2025 1:20 PM EST Office Visit [facility] Endocrinology [address] [place] [address] Sharif Moreno, ROSY [address] [place] [address] documented as of this encounter [...] hyperglycemia, with long-term current use of insulin ([facility]) BASIC METABOLIC PANEL, [...] by ascites and intermittent hepatic hydrothorax. TECHNIQUE: Filter Press Tender: Marianna Gordon APRN Secondary Equine Vet: None. Nurse: Bao Technologist: Kalina Phillips Dose: [...] complicated by ascites and intermittenthepatic hydrothorax. TECHNIQUE: Filter Press Tender: Marianna Gordon APRN Secondary Equine Vet: None. Nurse: Bao Technologist: Kalina Phillips Dose: [...] on 05/30/2025 7:47 PM us Marianna Gordon STATISTICS TUTOR IMG US PROCEDURES Final Resu lt * Body fluid, cytospin, pathologist interpretation (05/30/2025 10:25 AM EDT) Specimen Type Body Fluid LAB HEMATOLOGY METHOD 05/31/2025 12:24 PM EDT [facility] Specimen Source, Body Fluid Peritoneal Fluid LAB HEMATOLOGY METHOD 05/31/2025 12:24 PM EDT [facility] Clinical Diagnosis, Body Fluid Ascites LAB HEMATOLOGY METHOD 05/31/2025 12:24 PM EDT [facility] Interpretation , Body Fluid No evidence of malignancy Chronic inflammatory cells Lymphocytosis Light blood A resident was involved in the service. I attest I examined the relevant preparations for the specimens and confirmed the diagnosis or interpretation. 05/31/2025 12:24 PM EDT [facility] Pathologist Signature, Body Fluid 05/31/2025 12:24 PM EDT [facility] Comment:Reviewed by: Kadie dobbs MD LAB CP ASR DISCLAIMER Yes 05/31/2025 12:24 PM EDT [facility] Body Fluid Peritoneal fluid / Unknown Non-blood Collection / Unknown 05/30/2025 10:25 AM EDT 05/30/2025 10:52 AM EDT Marianna N Cheeks STATISTICS TUTOR LAB BODY FLUIDS AND STOOLS O RDERABLES Final Result Performing Organization Address [facility] de Phone Number [facility] [address] [place] [address] * Protein - Ascites (05/30/2025 10:25 AM EDT) Total Protein, Fluid 1 g/dL 05/30/2025 11:33 AM EDT [facility] Ascites Peritoneal cavity structure / Unknown 05/30/2025 10:25 AM EDT 05/30/2025 10:52 AM EDT Narrative [facility] - 05/30/2025 11:33 AM EDT This test was developed and its performance characteristics determined by [facility]. The U.S. Food and Drug Administration has not approved or cleared this test. However, FDA clearance or approval is not currently required for clinical use. The results are not intended to be used as the sole means for clinical diagnosis or patient management decisions. Marianna N Evan STATISTICS TUTOR LAB BODY FLUIDS AND STOOLS O RDERABLES Final Result Performing Organization Address [facility] Co de Phone Number [facility] [address] [place] [address] * (ABNORMAL) Body Fluid Cell Count With Diff - Ascites (05/30/2025 10:25 AM EDT) Color, Body fluid [place] LAB HEMATOLOGY METHOD 05/30/2025 4:32 PM EDT [facility] Appearance, Body fluid Cloudy(A) LAB HEMATOLOGY METHOD 05/30/2025 4:32 PM EDT [facility] Volume, Body fluid 9.0 cc LAB HEMATOLOGY METHOD 05/30/2025 4:32 PM EDT [facility] Fluid Container Tube 1 LAB HEMATOLOGY METHOD 05/30/2025 4:32 PM EDT [facility] Red Blood Cell Count, Body fluid 6,000 uL LAB HEMATOLOGY METHOD 05/30/2025 4:32 PM EDT [facility] Total Nucleated Cell Count, Body fluid 115 uL LAB HEMATOLOGY METHOD 05/30/2025 4:32 PM EDT [facility] Neutrophils %, Body fluid 1 % LAB HEMATOLOGY METHOD 05/30/2025 4:32 PM EDT [facility] Lymphocytes %, Body fluid 96 % LAB HEMATOLOGY METHOD 05/30/2025 4:32 PM EDT [facility] Monocytes/Macro phages %, Body fluid 3 % LAB HEMATOLOGY METHOD 05/30/2025 4:32 PM EDT [facility] Eosinophils %, Body fluid 0 % LAB HEMATOLOGY METHOD 05/30/2025 4:32 PM EDT [facility] Lining/Mesothel ial Cells %, Body fluid 0 % LAB HEMATOLOGY METHOD 05/30/2025 4:32 PM EDT [facility] Neutrophils Absolute (PMN), Body fluid 1 uL LAB HEMATOLOGY METHOD 05/30/2025 4:32 PM EDT [facility] Lymphocytes Absolute, Body fluid 110 uL LAB HEMATOLOGY METHOD 05/30/2025 4:32 PM EDT [facility] Monocytes/Macro phages Absolute, Body fluid 3 uL LAB HEMATOLOGY METHOD 05/30/2025 4:32 PM EDT [facility] Eosinophils Absolute, Body fluid 0 uL LAB HEMATOLOGY METHOD 05/30/2025 4:32 PM EDT [facility] Basophils Absolute, Body fluid 0 uL LAB HEMATOLOGY METHOD 05/30/2025 4:32 PM EDT [facility] Lining/Mesothel ial Cells Absolute, Body fluid 0 uL LAB HEMATOLOGY METHOD 05/30/2025 4:32 PM EDT [facility] Basophils %, Body fluid 0 % LAB HEMATOLOGY METHOD 05/30/2025 4:32 PM EDT [facility] Body Fluid Peritoneal fluid / Unknown Non-blood Collection / Unknown 05/30/2025 10:25 AM EDT 05/30/2025 10:52 AM EDT us Marianna Gordon STATISTICS TUTOR LAB BODY FLUIDS AND STOOLS ORDERABLES NO SPECIMEN TYPE/SOURCE Final Result [facility] [address] [place] [address] * (ABNORMAL) Basic metabolic panel (05/30/2025 9:59 AM EDT) Glucose, Plasma 199(H) 74 - 99 mg/dL 05/30/2025 10:49 AM EDT [facility] BUN, Plasma 29(H) 8 - 23 mg/dL 05/30/2025 10:49 AM EDT [facility] Creatinine, Plasma 1.44(H) 0.60 - 1.10 mg/dL 05/30/2025 10:49 AM EDT [facility] BUN/Creatinine Ratio 20 05/30/2025 10:49 AM EDT [facility] Sodium, Plasma 140 136 - 145 mmol/L 05/30/2025 10:49 AM EDT [facility] Potassium, Plasma 5.0(H) 3.6 - 4.9 mmol/L 05/30/2025 10:49 AM EDT [facility] Chloride, Plasma 108(H) 97 - 107 mmol/L 05/30/2025 10:49 AM EDT [facility] CO2, Plasma 19(L) 22 - 29 mmol/L 05/30/2025 10:49 AM EDT [facility] Anion Gap 13 6 - 16 mmol/L 05/30/2025 10:49 AM EDT [facility] Total Calcium, Plasma 8.6(L) 8.9 - 10.2 mg/dL 05/30/2025 10:49 AM EDT [facility] eGFRcr 41.2 mL/min/1.7 3m*2 05/30/2025 10:49 AM EDT [facility] Comment:Reported eGFRcr in m L/min/1.73m2 is based the CKD-EPI 2020 equation that does not use a race coefficient. Blood Venous blood specimen / Unknown Venipuncture / Unknown 05/30/2025 9:59 AM EDT 05/30/2025 10:16 AM EDT us Enmanuel Wetzel MD LAB BLOOD ORDERABLES Final Resu lt [facility] [address] [place] [address] * (ABNORMAL) Insulin, random (05/30/2025 9:59 AM EDT) Insulin 32.7(H) 3.0 - 16.0 uU/mL 05/30/2025 12:00 PM EDT [facility] Blood Venous blood specimen / Unknown Venipuncture / Unknown 05/30/2025 9:59 AM EDT 05/30/2025 10:16 AM EDT us Enmanuel Wetzel MD LAB BLOOD ORDERABLES Final Resu lt [facility] [address] [place] [address] documented in this encounter Visit Diagnoses Diagnosis [...] documented as of this encounter Care Teams Heel Attacher Relationship Specialty Start Date End Date Alvarez Zimmer MD [address] [place] [address] PCP - General Family Medicine 12/07/24 Lea Fernando [address] [place] [address] Director Of Accounts Receivable Endocrinology 08/29/24 Rachel Ray APRN [address] [facility] [address] [place] [address] Nurse Practitioner Gastroenterology 09/24/24 Tamera Isabel LPN VALUE-BASED TRANSFORMATION PROGRAM Licensed Practical Nurse 05/29/25 documented as of this encounter
--- OUTSIDE RECORDS SUMMARY | 2025-05-31 12:36 | XMS_ITS | Encounter Summary ---
Author Organization Healthcare Address [address] [place], [place] [id number] Care Team Providers Care Spindle Carver Name Role Phone Lea Fernando Unavailable [phone] Rachel Ray FIRMWARE TEST ENGINEER Unavailable [phone] Alvarez Zimmer MD Primary Care Provider [phone] Tamera Isabel ALLERGY NURSE Unavailable Unavailabl e Reason for Visit * Reason Comments Difficulty Urinating Weakness - Generalized Encounter Details Date Type Department Care Team ([facility] st Contact Info) Description 05/31/2025 12:36 PM EDT - 05/31/2025 8:07 PM EDT Emergency [facility] Emergency Department [address] [place] [address] Torrie Turner MD [address] [place] [phone] Irina Hernandez MD [address] [place] [phone] Altered mental status, unspecified altered mental [...] How often do you attend chur or confucianist services? Patient unable to answer 01/10/2025 Do you belong to any clubs o r organizations such as alevism groups, unions, fraternal or athletic groups, or [...] time in the past 12 m [facility], were you homeless or living in a detention (including now)? No 03/06/2025 Humiliation, Afraid, Rape, [...] week 05/29/2025 How often do you attend [facility] or confucianist services? Never 05/29/2025 Do you belong to any clubs o r organizations such as alevism groups, unions, fraternal or athletic groups, or [...] more drinks on one occasion? Never 05/29/2025 [facility] Occupat ional Health - Occupational Stress [...] time in the past 12 m [facility], were you homeless or living in a detention (including now)? No 05/29/2025 CAGE ASSESSMENT Answer [...] drink first t kennedy in the morning (EYE-PEDIATRIC DERMATOLOGIST) to steady your nerves or to get [...] 1 03/01/2025 ergocalciferol (Vitamin D-2) 1.25 MG (43873 UT) capsuleIndications: Vitamin D deficiency Take 1 [...] concerned for your health. Disposition Discharge AVS ([facility]) - Printed 05/31/2025 - [1] Past Medical History: Diagnosis Date ADHD (attention deficit hyperactivity disorder) Allergic Anxiety disorder, unspecified Anxiety Bleeding gums Blood in urine Cataract Chronic kidney disease Cirrhosis (CMS/HCC) Colon cancer screening 09/20/2019 Added automatically from request for surgery [id number] Coronary artery disease Depression 1995 Diabetes mellitus [...] 1979 BLADDER SURGERY N/A Bladder surgery from [facility] BREAST BIOPSY 2011 BREAST SURGERY 2010 BUNIONECTOMY Right CATARACT EXTRACTION Bilateral 2016 CHOLECYSTECTOMY 1980 ESOPHAGOGASTRODUODENOSCOPY HYSTERECTOMY N/A Hysterectomy from [facility] KNEE SURGERY Bilateral ORAL SURGERY N/A Oral surgery from [facility] OTHER SURGICAL HISTORY 2015 ROOT CANAL WISDOM [...] Sister Lj Bernal Dementia Maternal Grandmother Christine Dikc Alzheimer's disease Maternal Grandmother Christine Dick Emphysema [...] Appointment [facility] Interventional Radiology [address] [place] [address] 06/27/2025 10:30 AM EDT Appointment [facility] Interventional Radiology [address] [place] [address] 07/04/2025 10:30 AM EDT Appointment [facility] Interventional Radiology [address] [place] [address] 07/04/2025 11:30 AM EDT Appointment [facility] Interventional Radiology [address] [place] [address] 07/09/2025 2:40 PM EDT Office Visit [facility] [address], [address] [place] [address] Ar Dominique MD [address] [place] [address] 07/11/2025 10:30 AM EDT Appointment [facility] Interventional Radiology [address] [place] [address] 07/11/2025 11:30 AM EDT Appointment [facility] Interventional Radiology [address] [place] [address] 07/18/2025 10:30 AM EDT Appointment [facility] Interventional Radiology [address] [place] [address] 07/18/2025 11:30 AM EDT Appointment [facility] Interventional Radiology [address] [place] [address] 07/25/2025 10:30 AM EDT Appointment [facility] Interventional Radiology [address] [place] [address] 07/25/2025 11:30 AM EDT Appointment [facility] Interventional Radiology [address] [place] [address] 07/31/2025 9:00 AM EDT Office Visit [facility] [address] [place] [address] Alvarez Zimmer MD [address] [place] [address] 08/20/2025 9:30 AM EDT Clinical Support [facility] [place] [address] [place] [address] 08/20/2025 10:30 AM EDT Social Work [facility] [address] [place] [address] [place] [address] 08/20/2025 11:00 AM EDT Office Visit [facility] [address] [place] [address] Jude Duque MD [address] [place] [address] 10/30/2025 1:20 PM EST Office Visit [facility] Endocrinology [address] [place] [address] Sharif Moreno, ROYS [address] [place] [address] documented as of this encounter [...] MD LAB URINE ORDERABLES Final Re sult [facility] [address] [place] [address] * Urine Subramanian Panel (05/31/2025 6:43 PM EDT) Extra Reflex urine culture not indicated 05/31/2025 9:01 PM EDT [facility] Urine Urine specimen obtained by clean catch procedure / Unknown Non-blood Collection / Unknown 05/31/2025 6:43 PM EDT 05/31/2025 7:14 PM EDT us Irina Hernandez MD LAB URINE ORDERABLES Final Re sult [facility] [address] [place] [address] * (ABNORMAL) Urinalysis with reflex microscopic (Culture NOT Included) (05/31/2025 6:43 PM EDT) Pathologist [facility] Color, Urine Dark Yellow LAB URINALYSIS - AUTOMATED METHOD 05/31/2025 7:27 PM EDT [facility] Clarity, Urine Clear LAB URINALYSIS - AUTOMATED METHOD 05/31/2025 7:27 PM EDT [facility] Spec [place], Urine 1.029 1.005 - 1.030 LAB URINALYSIS - AUTOMATED METHOD 05/31/2025 7:27 PM EDT [facility] pH, Urine <=5.0(L) 5.0 - 8.0 LAB URINALYSIS - AUTOMATED METHOD 05/31/2025 7:27 PM EDT [facility] Protein, Urine Trace(A) Negative mg/dL LAB URINALYSIS - AUTOMATED METHOD 05/31/2025 7:27 PM EDT [facility] Glucose, Urine Negative Negative mg/dL LAB URINALYSIS - AUTOMATED METHOD 05/31/2025 7:27 PM EDT [facility] Ketones, Urine Trace(A) Negative mg/dL LAB URINALYSIS - AUTOMATED METHOD 05/31/2025 7:27 PM EDT [facility] Blood, Urine Small(A) Negative LAB URINALYSIS - AUTOMATED METHOD 05/31/2025 7:27 PM EDT [facility] Bilirubin, Urine Small(A) Negative LAB URINALYSIS - AUTOMATED METHOD 05/31/2025 7:27 PM EDT [facility] Urobilinogen, Urine 1.0 0.2 to 1.0 mg/dL LAB URINALYSIS - AUTOMATED METHOD 05/31/2025 7:27 PM EDT [facility] Leukocytes, Urine Trace(A) Negative LAB URINALYSIS - AUTOMATED METHOD 05/31/2025 7:27 PM EDT [facility] Nitrite, Urine Negative Negative LAB URINALYSIS - AUTOMATED METHOD 05/31/2025 7:27 PM EDT [facility] RBC, Urine 4 - 10(A) 0 to 3 /HPF LAB URINALYSIS - AUTOMATED METHOD 05/31/2025 7:27 PM EDT [facility] Comment:This result was prev iously suppressed from the chart. WBC, Urine 0 - 5 0 to 5 /HPF LAB URINALYSIS - AUTOMATED METHOD 05/31/2025 7:27 PM EDT [facility] Comment:This result was prev iously suppressed from the chart. Squamous Epithelial Cells 3 - 5 0 to 5 /HPF LAB URINALYSIS - AUTOMATED METHOD 05/31/2025 7:27 PM EDT [facility] Comment:This result was prev iously suppressed from the chart. Hyaline Casts 3 - 5 0 to 5 /LPF LAB URINALYSIS - AUTOMATED METHOD 05/31/2025 7:27 PM EDT [facility] Comment:This result was prev iously suppressed from the chart. Bacteria, Urine Negative Negative LAB URINALYSIS - AUTOMATED METHOD 05/31/2025 7:27 PM EDT [facility] Comment:This result was prev iously suppressed from the chart. Urine Urine specimen obtained by clean catch procedure / Unknown Non-blood Collection / Unknown 05/31/2025 6:43 PM EDT 05/31/2025 6:46 PM EDT us Irina Hernandez MD LAB URINE ORDERABLES Final Re sult [facility] [address] [place] [address] * Ammonia (05/31/2025 4:01 PM EDT) Ammonia 39 11 - 51 umol/L 05/31/2025 4:55 PM EDT [facility] Blood Venous blood specimen / Unknown Venipuncture / Unknown 05/31/2025 4:01 PM EDT 05/31/2025 4:11 PM EDT Torrie Turner MD LAB BLOOD ORDERABLES Final Resu lt Performing Organization Address [facility] Co de Phone Number [facility] [address] [place] [address] * (ABNORMAL) PT-INR (05/31/2025 4:01 PM EDT) Prothrombin Time 22.1(H) 12.0 - 14.3 sec 05/31/2025 4:21 PM EDT [facility] INR 2.0(H) 0.9 - 1.1 05/31/2025 4:21 PM EDT [facility] Blood Venous blood specimen / Unknown Venipuncture / Unknown 05/31/2025 4:01 PM EDT 05/31/2025 4:06 PM EDT Narrative [facility] - 05/31/2025 4:21 PM EDT OPTIMAL INR RANGES FOR PATIENT ON ORAL ANTICOAGULANT THERAPY Prevention of venous thromboembolism INR 2.0 to 3.0 In patients with heart disease: Atrial fibrillation INR 2.0 to 3.0 Valvular heart disease INR 2.0 to 3.0 Tissue heart valves INR 2.0 to 3.0 Mechanical prosthetic valves INR 2.5 to 3.5 Prevention of recurrent OR INR 2.5 to 3.5 Torrie Turner MD LAB BLOOD ORDERABLES Final Resu lt Performing Organization Address [facility] Co de Phone Number [facility] [address] [place] [address] * (ABNORMAL) CBC w/diff (05/31/2025 4:01 PM EDT) WBC Count 2.85(L) 3.70 - 10.30 10*3/uL LAB HEMATOLOGY METHOD 05/31/2025 4:08 PM EDT [facility] RBC Count 2.79(L) 3.90 - 5.20 10*6/uL LAB HEMATOLOGY METHOD 05/31/2025 4:08 PM EDT [facility] HGB 8.7(L) 11.2 - 15.7 g/dL LAB HEMATOLOGY METHOD 05/31/2025 4:08 PM EDT [facility] HCT 26.3(L) 34.0 - 45.0 % LAB HEMATOLOGY METHOD 05/31/2025 4:08 PM EDT [facility] Platelet Count 44(L) 155 - 369 10*3/uL LAB HEMATOLOGY METHOD 05/31/2025 4:08 PM EDT [facility] MCV 94 79 - 98 fL LAB HEMATOLOGY METHOD 05/31/2025 4:08 PM EDT [facility] MCH 31.2 26.0 - 32.0 pg LAB HEMATOLOGY METHOD 05/31/2025 4:08 PM EDT [facility] MCHC 33.1 30.7 - 35.5 g/dL LAB HEMATOLOGY METHOD 05/31/2025 4:08 PM EDT [facility] RDW 18.5(H) 11.5 - 14.5 % LAB HEMATOLOGY METHOD 05/31/2025 4:08 PM EDT [facility] MPV 10.3 8.8 - 12.5 fL LAB HEMATOLOGY METHOD 05/31/2025 4:08 PM EDT [facility] nRBC 0.0 <=0.0 per 100 WBCs LAB HEMATOLOGY METHOD 05/31/2025 4:08 PM EDT [facility] Differential Type Automated LAB HEMATOLOGY METHOD 05/31/2025 4:08 PM EDT [facility] Neutrophils % 57 % LAB HEMATOLOGY METHOD 05/31/2025 4:08 PM EDT [facility] Lymphocytes % 24 % LAB HEMATOLOGY METHOD 05/31/2025 4:08 PM EDT [facility] Monocytes % 14 % LAB HEMATOLOGY METHOD 05/31/2025 4:08 PM EDT [facility] Eosinophils % 4 % LAB HEMATOLOGY METHOD 05/31/2025 4:08 PM EDT [facility] Basophils % 1 % LAB HEMATOLOGY METHOD 05/31/2025 4:08 PM EDT [facility] Immature Granulocytes % 0 % LAB HEMATOLOGY METHOD 05/31/2025 4:08 PM EDT [facility] Neutrophils Absolute 1.63 1.60 - 6.10 10*3/uL LAB HEMATOLOGY METHOD 05/31/2025 4:08 PM EDT [facility] Lymphocytes Absolute 0.68(L) 1.20 - 3.90 10*3/uL LAB HEMATOLOGY METHOD 05/31/2025 4:08 PM EDT [facility] Monocytes Absolute 0.40 0.30 - 0.90 10*3/uL LAB HEMATOLOGY METHOD 05/31/2025 4:08 PM EDT [facility] Eosinophils Absolute 0.11 0.00 - 0.50 10*3/uL LAB HEMATOLOGY METHOD 05/31/2025 4:08 PM EDT [facility] Basophils Absolute 0.03 0.00 - 0.10 10*3/uL LAB HEMATOLOGY METHOD 05/31/2025 4:08 PM EDT [facility] Immature Granulocytes Absolute 0.00 0.00 - 0.06 10*3/uL LAB HEMATOLOGY METHOD 05/31/2025 4:08 PM EDT [facility] Blood Venous blood specimen / Unknown Venipuncture / Unknown 05/31/2025 4:01 PM EDT 05/31/2025 4:06 PM EDT Narrative [facility] - 05/31/2025 4:08 PM EDT Therapeutic decision making should be based on absolute values, rather than percentages. Torrie Turner MD LAB BLOOD ORDERABLES Final Resu lt [facility] [address] [place] [address] * (ABNORMAL) Blood gas panel, venous (05/31/2025 4:01 PM EDT) pH, Venous 7.41 7.32 - 7.43 LAB HEMATOLOGY METHOD 05/31/2025 4:07 PM EDT [facility] pCO2, Venous 35(L) 37 - 52 mmHg LAB HEMATOLOGY METHOD 05/31/2025 4:07 PM EDT [facility] pO2, Venous 28 25 - 40 mmHg LAB HEMATOLOGY METHOD 05/31/2025 4:07 PM EDT [facility] SO2, Measured, Venous 45(L) 65 - 80 % LAB HEMATOLOGY METHOD 05/31/2025 4:07 PM EDT [facility] Base Excess, Venous -2.0 -2.0 - 3.0 mmol/L LAB HEMATOLOGY METHOD 05/31/2025 4:07 PM EDT [facility] Bicarbonate, Calculated, Venous 22 22 - 26 mmol/L LAB HEMATOLOGY METHOD 05/31/2025 4:07 PM EDT [facility] Hematocrit, Whole Blood 27.5(L) 34.0 - 45.0 % LAB HEMATOLOGY METHOD 05/31/2025 4:07 PM EDT [facility] Sodium, Whole Blood 142 136 - 145 mmol/L LAB HEMATOLOGY METHOD 05/31/2025 4:07 PM EDT [facility] Potassium, Whole Blood 4.2 3.6 - 4.9 mmol/L LAB HEMATOLOGY METHOD 05/31/2025 4:07 PM EDT [facility] Chloride, Whole Blood 110(H) 97 - 107 mmol/L LAB HEMATOLOGY METHOD 05/31/2025 4:07 PM EDT [facility] Glucose, Whole Blood 183(H) 74 - 99 mg/dL LAB HEMATOLOGY METHOD 05/31/2025 4:07 PM EDT [facility] Lactate, Venous, Whole Blood 1.8 0.5 - 2.2 mmol/L LAB HEMATOLOGY METHOD 05/31/2025 4:07 PM EDT [facility] Ionized Calcium, Whole Blood 4.4(L) 4.6 - 5.1 mg/dL LAB HEMATOLOGY METHOD 05/31/2025 4:07 PM EDT [facility] Blood Venous blood specimen / Unknown Venipuncture / Unknown 05/31/2025 4:01 PM EDT 05/31/2025 4:06 PM EDT us Torrie Turner MD LAB BLOOD ORDERABLES Final Resu lt [facility] [address] [place] [address] * Lipase (05/31/2025 4:01 PM EDT) Lipase, Plasma 62 19 - 63 U/L 05/31/2025 4:26 PM EDT [facility] Blood Venous blood specimen / Unknown Venipuncture / Unknown 05/31/2025 4:01 PM EDT 05/31/2025 4:06 PM EDT Torrie Turner MD LAB BLOOD ORDERABLES Final Resu lt Performing Organization Address [facility]/ZIP Co de Phone Number [facility] [address] [place] [address] * (ABNORMAL) Magnesium (05/31/2025 4:01 PM EDT) Magnesium, Plasma 1.3(L) 1.9 - 2.4 mg/dL 05/31/2025 4:26 PM EDT [facility] Blood Venous blood specimen / Unknown Venipuncture / Unknown 05/31/2025 4:01 PM EDT 05/31/2025 4:06 PM EDT Torrie Turner MD LAB BLOOD ORDERABLES Final Resu lt Performing Organization Address [facility] Co de Phone Number [facility] [address] [place] [address] * (ABNORMAL) CMP (05/31/2025 4:01 PM EDT) Glucose, Plasma 181(H) 74 - 99 mg/dL 05/31/2025 4:26 PM EDT [facility] BUN, Plasma 29(H) 8 - 23 mg/dL 05/31/2025 4:26 PM EDT [facility] Creatinine, Plasma 1.34(H) 0.60 - 1.10 mg/dL 05/31/2025 4:26 PM EDT [facility] BUN/Creatinine Ratio 22 05/31/2025 4:26 PM EDT [facility] Sodium, Plasma 140 136 - 145 mmol/L 05/31/2025 4:26 PM EDT [facility] Potassium, Plasma 4.3 3.6 - 4.9 mmol/L 05/31/2025 4:26 PM EDT [facility] Chloride, Plasma 109(H) 97 - 107 mmol/L 05/31/2025 4:26 PM EDT [facility] CO2, Plasma 19(L) 22 - 29 mmol/L 05/31/2025 4:26 PM EDT [facility] Anion Gap 12 6 - 16 mmol/L 05/31/2025 4:26 PM EDT [facility] Total Calcium, Plasma 8.5(L) 8.9 - 10.2 mg/dL 05/31/2025 4:26 PM EDT [facility] Total Protein 6.6 6.3 - 7.9 g/dL 05/31/2025 4:26 PM EDT [facility] Albumin, Plasma 3.5 3.5 - 5.2 g/dL 05/31/2025 4:26 PM EDT [facility] AST, Plasma 30 10 - 35 U/L 05/31/2025 4:26 PM EDT [facility] ALT, Plasma 15 10 - 35 U/L 05/31/2025 4:26 PM EDT [facility] Alkaline Phosphatase, Plasma 167(H) 46 - 142 U/L 05/31/2025 4:26 PM EDT [facility] Total Bilirubin, Plasma 4.1(H) 0.2 - 1.1 mg/dL 05/31/2025 4:26 PM EDT [facility] eGFRcr 44.9 mL/min/1.7 3m*2 05/31/2025 4:26 PM EDT [facility] Comment:Reported eGFRcr in m L/min/1.73m2 is based the CKD-EPI 2020 equation that does not use a race coefficient. Blood Venous blood specimen / Unknown Venipuncture / Unknown 05/31/2025 4:01 PM EDT 05/31/2025 4:06 PM EDT us Torrie Turner MD LAB BLOOD ORDERABLES Final Resu lt [facility] [address] [place] [address] * ECG Adult (05/31/2025 3:43 PM EDT) EKG DIAGNOSIS CLASS Abnormal MUSE ECG Ventricular Rate 67 BPM MUSE ECG Atrial Rate 67 BPM MUSE ECG IN Interval 116 ms MUSE ECG QRSD Interval 88 ms MUSE ECG QT Interval 466 ms MUSE ECG QTC Interval 492 ms MUSE ECG P [place] 40 degrees MUSE ECG R [place] -36 degrees MUSE ECG T Wave [place] -2 degrees MUSE ECG Diagnosis Normal sinus rhythm MUSE ECG Diagnosis Left axis deviation MUSE ECG Diagnosis Cannot rule out Anterior infarct , age undetermined MUSE ECG Diagnosis MUSE ECG Diagnosis MUSE ECG Diagnosis Confirmed by Cecelia Leal ([id number]) on 06/02/2025 7:31:57 PM MUSE ECG 05/31/2025 3:43 PM EDT 06/02/2025 7:31 PM EDT us Irina Hernandez MD ECG ORDERABLES Final Result Performing Organization Address City/[facility]/ZIP Co de Phone Number MUSE ECG * Urine Subramanian Panel (05/31/2025 3:08 PM EDT) Extra Reflex urine culture not indicated 05/31/2025 5:01 PM EDT [facility] Urine Urine specimen obtained by clean catch procedure / Unknown Non-blood Collection / Unknown 05/31/2025 3:08 PM EDT 05/31/2025 3:41 PM EDT Torrie Turner MD LAB URINE ORDERABLES Final Resu lt Performing Organization Address [facility] [place] [address] * Urinalysis Microscopic Examination (05/31/2025 3:06 PM EDT) Urine Urine specimen obtained by clean catch procedure / Unknown Non-blood Collection / Unknown 05/31/2025 3:06 PM EDT 05/31/2025 3:10 PM EDT Torrie Turner MD LAB URINE ORDERABLES Final Resu lt Performing Organization Address [facility] Co de Phone Number [facility] [address] [place] [address] * (ABNORMAL) Urinalysis with reflex microscopic (Culture NOT Included) (05/31/2025 3:06 PM EDT) Color, Urine Dark Yellow LAB URINALYSIS - AUTOMATED METHOD 05/31/2025 3:53 PM EDT [facility] Clarity, Urine Cloudy LAB URINALYSIS - AUTOMATED METHOD 05/31/2025 3:53 PM EDT [facility] Spec [place], Urine 1.025 1.005 - 1.030 LAB URINALYSIS - AUTOMATED METHOD 05/31/2025 3:53 PM EDT [facility] pH, Urine <=5.0(L) 5.0 - 8.0 LAB URINALYSIS - AUTOMATED METHOD 05/31/2025 3:53 PM EDT [facility] Protein, Urine Trace(A) Negative mg/dL LAB URINALYSIS - AUTOMATED METHOD 05/31/2025 3:53 PM EDT [facility] Glucose, Urine Negative Negative mg/dL LAB URINALYSIS - AUTOMATED METHOD 05/31/2025 3:53 PM EDT [facility] Ketones, Urine Trace(A) Negative mg/dL LAB URINALYSIS - AUTOMATED METHOD 05/31/2025 3:53 PM EDT [facility] Blood, Urine Trace(A) Negative LAB URINALYSIS - AUTOMATED METHOD 05/31/2025 3:53 PM EDT [facility] Bilirubin, Urine Small(A) Negative LAB URINALYSIS - AUTOMATED METHOD 05/31/2025 3:53 PM EDT [facility] Urobilinogen, Urine 1.0 0.2 to 1.0 mg/dL LAB URINALYSIS - AUTOMATED METHOD 05/31/2025 3:53 PM EDT [facility] Leukocytes, Urine Small(A) Negative LAB URINALYSIS - AUTOMATED METHOD 05/31/2025 3:53 PM EDT [facility] Nitrite, Urine Negative Negative LAB URINALYSIS - AUTOMATED METHOD 05/31/2025 3:53 PM EDT [facility] RBC, Urine 4 - 10(A) 0 to 3 /HPF LAB URINALYSIS - AUTOMATED METHOD 05/31/2025 3:53 PM EDT [facility] Comment:This result was prev iously suppressed from the chart. WBC, Urine 6 - 10(A) 0 to 5 /HPF LAB URINALYSIS - AUTOMATED METHOD 05/31/2025 3:53 PM EDT [facility] Comment:This result was prev iously suppressed from the chart. Squamous Epithelial Cells 11 - 20(A) 0 to 5 /HPF LAB URINALYSIS - AUTOMATED METHOD 05/31/2025 3:53 PM EDT [facility] Comment:This result was prev iously suppressed from the chart. Hyaline Casts 3 - 5 0 to 5 /LPF LAB URINALYSIS - AUTOMATED METHOD 05/31/2025 3:53 PM EDT [facility] Comment:This result was prev iously suppressed from the chart. Bacteria, Urine Negative Negative LAB URINALYSIS - AUTOMATED METHOD 05/31/2025 3:53 PM EDT [facility] Comment:This result was prev iously suppressed from the chart. Renal Tubular Cells Present Absent 05/31/2025 3:53 PM EDT [facility] Comment:This result was prev iously suppressed from the chart. Transitional Epithelial Cells Present Absent 05/31/2025 3:53 PM EDT [facility] Comment:This result was prev iously suppressed from the chart. Urine Urine specimen obtained by clean catch procedure / Unknown Non-blood Collection / Unknown 05/31/2025 3:06 PM EDT 05/31/2025 3:10 PM EDT Narrative [facility] - 05/31/2025 3:53 PM EDT Performed by manual method Torrie Turner MD LAB URINE ORDERABLES Final Resu lt [facility] [address] [place] [address] documented in this encounter Visit Diagnoses Diagnosis [...] documented as of this encounter Care Teams Spindle Carver Relationship Specialty Start Date End Date Alvarez Zimmer MD [address] [place] [phone] PCP - General Family Medicine 12/07/24 Lea Fernando [address] [place] [address] [place] [address] Nutrition Consultant Endocrinology 08/29/24 Rachel Ray, FIRMWARE TEST ENGINEER [address] [place] [address] Nurse Practitioner Gastroenterology 09/24/24 Tamera Isabel LPN VALUE-BASED TRANSFORMATION PROGRAM Licensed Practical Nurse 05/29/25 documented as of this encounter
--- OUTSIDE RECORDS SUMMARY | 2025-06-05 14:00 | XMS_ITS | Encounter Summary ---
Author Organization [facility] Address [address] [place] [address] Care Team Providers Care Pharmaceutical Sales Specialist Name Role Phone Lenoresimeon Lea Clarke Unavailable [phone] Rachel Ray STATION EXAMINER Unavailable [phone] Alvarez Zimmer MD Primary Care Provider [phone] Tamera Isabel SILK SCREEN OPERATOR Unavailable Unavailabl e Reason for Visit * Reason Comments Medicare Annual Wellness Visit Initial A nnual; has been feeling out of sorts for a while but has been worse since Tuesday Care Gap Closure Postpone Covid vacci ne; last colonoscopy done 01/14/23 [facility], record under media and printed out to put in scrubber box Med Refill Crestor Encounter Details Date Type Department Care Team (Latest Contact Info) Description 06/05/2025 2:00 PM EDT Office Visit [facility] [address] [place] [address] Alvarez Zimmer MD [address] [place] [address] Medicare annual wellness visit, initial (Primary Dx); Coronary artery disease of navajo 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 (CMS/HCC); Diabetic peripheral neuropathy (CMS/HCC); 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); Chronic obstructive pulmonary disease, unspecified COPD type (CMS/HCC); JONATHAN treated with BiPAP; Chronic kidney disease, stage 3b (CMS/HCC); Hyperlipidemia, unspecified hyperlipidemia type; Type 2 diabetes mellitus with hyperglycemia, with long-term current use of insulin (CMS/HCC); Anemia of chronic disease; Anxiety disorder, unspecified type; 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) (CMS/HCC); Hypomagnesemia; Vitamin D deficiency; Hyperbilirubinemia; Protein malnutrition (CMS/HCC) Social History Tobacco Use Types Packs/Day Years [...] week 01/10/2025 How often do you attend [facility] or protestant services? Patient unable to answer 01/10/2025 Do you belong to any clubs o r organizations such as buddhism groups, unions, fraternal or athletic groups, or [...] Recorded Patient Health Questionnaire-2 Score 0 06/11/2025 Housing Stability Vital Sign Answer Rajesh e [...] Recorded Patient Health Questionnaire-9 Score 6 06/11/2025 Housing Stability Vital Sign Answer Rajesh e Recorded In the last 12 months, was t here a time when you were not able to pay the mortgage or rent on time? No 03/06/2025 In the past 12 months, how m any times have you moved where you were living? 1 03/06/2025 At any time in the past 12 m [facility], were you homeless or living in a intermediate (including now)? No 03/06/2025 Humiliation, Afraid, Rape, [...] often do you attend chur ch or protestant services? Never 05/29/2025 Do you belong to any clubs o r organizations such as buddhism groups, unions, fraternal or athletic groups, or [...] more drinks on one occasion? Never 06/05/2025 [facility] - Occupational Stress Questionnaire Answer Date [...] any time in the past 12 m [facility], were you homeless or living in a intermediate (including now)? No 05/29/2025 CAGE ASSESSMENT Answer [...] drink first t kennedy in the morning (EYE-TRAIN ELECTRONIC TECHNICIAN) to steady your nerves or to get rid of a hangover? 0 10/22/2024 CAGE Questionnaire Score 0 024 Utilities Answer Date Recorded In the past 12 months has e [employer], gas, oil, or water company threatened to [...] Gissel Marino 6. Suicidal Behavior (Lifetime) No 2:53 PM EDT Gissel Marino documented as of this encounter Miscellaneous Notes * Clinician Note - Gissel Marino - 06/05/2025 2:00 PM EDT Pt accompanied by son and sister. * Progress Notes - Alvarez Zimmer MD - 06/05/2025 2:00 PM EDT Images from the original note were not included. Initial Medicare Wellness Visit [facility] Wellness Visit Chief Complaint Patient presents with Medicare Annual Wellness Visit Initial Annual; has been feeling out of sorts for a while but has been worse since Tuesday Care Gap Closure Postpone Covid vaccine; last colonoscopy done 01/14/23 [facility], record under media and printed out to put in scrubber box [facility] risk assessment completed and reviewed with the patient. HPI: Gabi Zimmer is a 64 y.o. female who presents for an Initial Medicare Wellness Visit. [phone], phone number for Lea Reilly. She is [...] insulin managed by endocrinology. Has CAD in navajo artery on rosuvastatin. Has HLD on rosuvastatin [...] - General (Family Medicine) Lea Fernando as Fulling Mill Operator (Endocrinology) Rachel Ray APRN as Nurse Practitioner [...] 0 min Stress: Stress Concern Present (05/29/2025) [facility] [place] [facility] - Occupational Stress Questionnaire Feeling of Stress: Very much Social Connections: Socially Isolated (05/29/2025) Social Connection and Isolation Panel Frequency of Communication with Friends and Family: More than three times a week Frequency of Social Gatherings with Friends and Family: Once a week Attends Yazidi Services: Never Active Member of Clubs or [...] Risk 60-74 years 1-dose series) Never done [id number] Vaccine ( - season) Never done UKY-Influenza [...] due to being sick and delirious episodes. 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) 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) ([facility]) (Chronic) Other Visit Diagnoses Medicare annual wellness visit, initial - Primary Anemia of chronic disease Relevant Orders CBC and Differential Iron, Plasma Ferritin, Serum Anxiety disorder, unspecified type Hypomagnesemia Vitamin D deficiency Hyperbilirubinemia Relevant Orders Conjugated Bilirubin, Plasma Protein malnutrition ([facility]/HCC) Relevant Orders Prealbumin, Plasma An After Visit [...] Risk 60-74 years 1-dose series) Never done [id number] Vaccine (1 - season) Never done UKY-Influenza Vaccine (1) [...] MINI PEN NEEDLES 31G X 5 MM [facility], , Disp: , Rfl: Blood Glucose Monitoring [...] Rfl: 0 ergocalciferol (Vitamin D-2) 1.25 MG (83821 UT) capsule, Take 1 capsule by mouth [...] Lj Bernal Diabetes type II Sister Lj Brenal Autoimmune disease Sister Lj Bernal Immunodeficiency Sister [...] Anxiety disorder Son Obesity Son Depression Son Jpsage Zimmer Asthma Son Jpsage Zmimer Mental illness Son Jpsage Zimmer Depression Son Viralarnoldo Zimmer Diabetes Son Viral Zimmer [4] Past Surgical History: Procedure Laterality Date APPENDECTOMY 1979 BLADDER SURGERY N/A Bladder surgery from [facility] BREAST BIOPSY 2011 BREAST SURGERY 2010 BUNIONECTOMY Right CATARACT EXTRACTION Bilateral 2016 CHOLECYSTECTOMY 1979 ESOPHAGOGASTRODUODENOSCOPY HYSTERECTOMY N/A Hysterectomy from [facility] KNEE SURGERY Bilateral ORAL SURGERY N/A Oral surgery from [facility] OTHER SURGICAL HISTORY 2015 ROOT CANAL WISDOM TOOTH EXTRACTION [5] Patient Active Problem List Diagnosis Alopecia Chronic obstructive pulmonary disease (CMS/HCC) Chronic kidney disease, stage 3b (CMS/HCC) Coronary artery disease of navajo 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 (CMS/HCC) Diabetic [...] Appointment [facility] [address] [place] [address] 06/27/2025 10:30 AM EDT Appointment [facility] [address] [place] [address] 07/04/2025 10:30 AM EDT Appointment [facility] [address] [place] [address] 07/04/2025 11:30 AM EDT Appointment [facility] [address] [place] [address] 07/09/2025 2:40 PM EDT Office Visit [facility] [address], [address] [place] [address] Ar Dominique MD [address] [place] [address] 07/11/2025 10:30 AM EDT Appointment [facility] [address] [place] [address] 07/11/2025 11:30 AM EDT Appointment [facility] [address] [place] [address] 07/18/2025 10:30 AM EDT Appointment [facility] [address] [place] [address] 07/18/2025 11:30 AM EDT Appointment [facility] [address] [place] [address] 07/25/2025 10:30 AM EDT Appointment [facility] [address] [place] [address] 07/25/2025 11:30 AM EDT Appointment [facility] [address] [place] [address] 07/31/2025 9:00 AM EDT Office Visit [facility] [address] [place] [address] Alvarez Zimmer MD [address] [place] [address] 08/20/2025 9:30 AM EDT Clinical Support [facility] [place] [address] [place] [address] 08/20/2025 10:30 AM EDT Social Work [facility] [place] [address] [place] [address] [place] [address] 08/20/2025 11:00 AM EDT Office Visit [facility] [place] [address] [place] [address] Jude Duque MD [address] [place] [address] 10/30/2025 1:20 PM EST Office Visit [facility] [address] [place] [address] Sharif Moreno, DPM [address] [place] [address] documented as of this encounter [...] (ABNORMAL) Ferritin, Serum (06/05/2025 3:52 PM EDT) Ferritin, Serum 280(H) 13 - 150 ng/mL 06/05/2025 6:[address] [facility] Blood Venous blood specimen / Unknown Venipuncture / Unknown 06/05/2025 3:52 PM EDT 06/05/2025 3:52 PM EDT Alvarez Zimmer MD LAB BLOOD ORDERABLES Final Res ult Performing Organization Address City/[facility]/ZIP Co de Phone Number [facility] [address] [place] [address] * (ABNORMAL) Iron, Plasma (06/05/2025 3:52 PM EDT) Iron, Plasma 165(H) 30 - 160 ug/dL 06/05/2025 6:[address] [facility] Blood Venous blood specimen / Unknown Venipuncture / Unknown 06/05/2025 3:52 PM EDT 06/05/2025 3:52 PM EDT Alvarez Zimmer MD LAB BLOOD ORDERABLES Final Res ult [facility] [address] [place] [address] * (ABNORMAL) CBC and Differential (06/05/2025 3:52 PM EDT) WBC Count 4.22 3.70 - 10.30 10*3/uL LAB HEMATOLOGY METHOD 06/05/2025 6:[address] [facility] RBC Count 3.21(L) 3.90 - 5.20 10*6/uL LAB HEMATOLOGY METHOD 06/05/2025 6:[address] [facility] HGB 10.0(L) 11.2 - 15.7 g/dL LAB HEMATOLOGY METHOD 06/05/2025 6:[address] [facility] HCT 31.4(L) 34.0 - 45.0 % LAB HEMATOLOGY METHOD 06/05/2025 6:[address] [facility] Platelet Count 57(L) 155 - 369 10*3/uL LAB HEMATOLOGY METHOD 06/05/2025 6:[address] [facility] MCV 98 79 - 98 fL LAB HEMATOLOGY METHOD 06/05/2025 6:[address] [facility] MCH 31.2 26.0 - 32.0 pg LAB HEMATOLOGY METHOD 06/05/2025 6:[address] [facility] MCHC 31.8 30.7 - 35.5 g/dL LAB HEMATOLOGY METHOD 06/05/2025 6:[address] [facility] RDW 17.9(H) 11.5 - 14.5 % LAB HEMATOLOGY METHOD 06/05/2025 6:[address] [facility] MPV 11.2 8.8 - 12.5 fL LAB HEMATOLOGY METHOD 06/05/2025 6:[address] [facility] nRBC 0.0 <=0.0 per 100 WBCs LAB HEMATOLOGY METHOD 06/05/2025 6:[address] [facility] Differential Type Automated LAB HEMATOLOGY METHOD 06/05/2025 6:[address] [facility] Neutrophils % 64 % LAB HEMATOLOGY METHOD 06/05/2025 6:[address] [facility] Lymphocytes % 17 % LAB HEMATOLOGY METHOD 06/05/2025 6:[address] [facility] Monocytes % 15 % LAB HEMATOLOGY METHOD 06/05/2025 6:[address] [facility] Eosinophils % 3 % LAB HEMATOLOGY METHOD 06/05/2025 6:[address] [facility] Basophils % 1 % LAB HEMATOLOGY METHOD 06/05/2025 6:[address] [facility] Immature Granulocytes % 0 % LAB HEMATOLOGY METHOD 06/05/2025 6:[address] [facility] Neutrophils Absolute 2.71 1.60 - 6.10 10*3/uL LAB HEMATOLOGY METHOD 06/05/2025 6:[address] [facility] Lymphocytes Absolute 0.71(L) 1.20 - 3.90 10*3/uL LAB HEMATOLOGY METHOD 06/05/2025 6:[address] [facility] Monocytes Absolute 0.65 0.30 - 0.90 10*3/uL LAB HEMATOLOGY METHOD 06/05/2025 6:[address] [facility] Eosinophils Absolute 0.11 0.00 - 0.50 10*3/uL LAB HEMATOLOGY METHOD 06/05/2025 6:[address] [facility] Basophils Absolute 0.03 0.00 - 0.10 10*3/uL LAB HEMATOLOGY METHOD 06/05/2025 6:[address] [facility] Immature Granulocytes Absolute 0.01 0.00 - 0.06 10*3/uL LAB HEMATOLOGY METHOD 06/05/2025 6:[address] [facility] Blood Venous blood specimen / Unknown Venipuncture / Unknown 06/05/2025 3:52 PM EDT 06/05/2025 3:[address] [facility] - 06/05/2025 6:35 PM EDT Therapeutic decision making should be based on absolute values, rather than percentages. Alvarez Zimmer MD LAB BLOOD ORDERABLES Final Res ult [facility] [address] [place] [address] * (ABNORMAL) Prealbumin, Plasma (06/05/2025 3:52 PM EDT) Prealbumin, Plasma 6.6(L) 20.0 - 41.0 mg/dL 06/05/2025 6:[address] [facility] Blood Venous blood specimen / Unknown Venipuncture / Unknown 06/05/2025 3:52 PM EDT 06/05/2025 3:52 PM EDT Alvarez Zimmer MD LAB BLOOD ORDERABLES Final Res ult [facility] [address] [place] [address] * (ABNORMAL) Conjugated Bilirubin, Plasma (06/05/2025 3:52 PM EDT) Conjugated Bilirubin, Plasma 1.5(H) <=0.3 mg/dL 06/05/2025 6:[address] [facility] Blood Venous blood specimen / Unknown Venipuncture / Unknown 06/05/2025 3:52 PM EDT 06/05/2025 3:52 PM EDT us Alvarez Zimmer MD LAB BLOOD ORDERABLES Final Res ult [facility] [address] [place] [address] documented in this encounter Visit Diagnoses Diagnosis Medicare annual wellness visit, initial- Primary Coronary artery disease of navajo 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 (CMS/HCC) Diabetic [...] documented as of this encounter Care Teams Pharmaceutical Sales Specialist Relationship Specialty Start Date End Date Alvarez Zimmer MD [facility] [place] [address] PCP - General Family Medicine 12/07/24 Lea Fernando [address] [facility] [address] [place] [address] Fulling Mill Operator Endocrinology 08/29/24 Rachel Ray APRN [address] [facility] [address] [place] [address] Nurse Practitioner Gastroenterology 09/24/24 Tamera Isabel, MG VALUE-BASED TRANSFORMATION PROGRAM Licensed Practical Nurse 05/29/25 documented as of this encounter
--- OUTSIDE RECORDS SUMMARY | 2025-06-06 07:58 | XMS_ITS | Encounter Summary ---
Author Organization Healthcare Address [address] [place] [address] Care Team Providers Care Show Horse Driver Name Role Phone Lea Fernando Unavailable [phone] Rachel Ray LABEL DESIGNER Unavailable [phone] Alvarez Zimmer MD Primary Care Provider [phone] Tamera Isabel LPN Unavailable Unavailabl e Reason for Referral * Clinic-Administered Medication (Routine) - Closed Specialty Diagnoses / Procedures Referred By Eder t Referred To Contact Diagnoses Other ascites Procedures NV ABDOM PARACENTESIS DX/THER W IMAGING GUIDANCE Marianna Gordon APRN [address] [place] [address] Phone: tel: fax: [facility] [address] [place] [address] Phone: tel: fax: Referral ID Status Reason Start Date Expiration Date Visits Re quested Visits Authorized [id number] Closed 06/06/2025 12/06/2026 1 1 * Imaging (Routine) - Closed Specialty Diagnoses / Procedures Referred By Eder t Referred To Contact Radiology Diagnoses Other ascites Procedures US Guided Abdominal Paracentesis Marianna Gordon APRN [address] [place] [address] Phone: tel: fax: Referral ID Status Reason Start Date Expiration Date Visits Re quested Visits Authorized [id number] Closed 04/26/2025 10/26/2026 1 1 * Imaging (Routine) - Closed Specialty Diagnoses / Procedures Referred By Allanac audra Referred To Contact Radiology Diagnoses Other ascites Procedures US Guided Thoracentesis Marianna Gordon APRN [address] [place] [address] Phone: tel: fax: Referral ID Status Reason Start Date Expiration Date Visits Re quested Visits Authorized [id number] Closed 04/26/2025 10/26/2026 1 1 Reason for Visit * Imaging (Routine) - Closed Specialty Diagnoses / Procedures Referred By Eder zhu Referred To Contact Radiology Diagnoses Other ascites Procedures US Guided Abdominal Paracentesis Marianna Gordon APRN [address] [place] [address] Phone: tel: fax: Referral ID Status Reason Start Date Expiration Date Visits Re quested Visits Authorized [id number] Closed 04/26/2025 10/26/2026 1 1 Encounter Details Date Type Department Care Team (Latest Contact Info) Description 06/06/2025 7:58 AM EDT - 06/06/2025 11:19 AM EDT Hospital Encounter [facility] Interventional Radiology [address] [place] [address] Golden Wilhelm RN MICU 9-T1 AND T2 Other ascites [...] often do you attend chur ch or church services? Patient unable to answer 01/10/2025 Do you belong to any clubs o r organizations such as congregation groups, unions, fraternal or athletic groups, or [...] in the past 12 m [facility], were you homeless or living in a retirement (including now)? No 03/06/2025 Humiliation, Afraid, Rape, [...] week 05/29/2025 How often do you attend [facility] or church services? Never 05/29/2025 Do you belong to any clubs o r organizations such as congregation groups, unions, fraternal or athletic groups, or [...] more drinks on one occasion? Never 06/05/2025 [facility] of Occupat ional Health - Occupational Stress [...] in the past 12 m [facility], were you homeless or living in a retirement (including now)? No 05/29/2025 CAGE ASSESSMENT Answer [...] drink first t kennedy in the morning (EYE-BREAD DUMPER) to steady your nerves or to get [...] encounter Discharge Instructions * Discharge Instructions* Golden Wilhelm, RN - 06/06/2025 11:51 AM EDT *Interventional Radiology* (IR) Questions/Concerns & Appointments: If there are questions or concerns after discharge please call: [facility]ascular and Interventional Radiology Clinic at [phone] Tuesday - Tuesday 8:00 AM to 4:30 PM After hours, weekends, and holidays please call [phone] and ask for the Interventional Radiology provider/Resident on-call Intervention Radiology Appointments: If you need to reschedule a procedure, please call our Schedulers at [phone], option 4. If you need to schedule or reschedule a clinic appointment, please call [phone]. [facility] V[facility] Interventional Radiology Clinic [address] [place] [address] documented in this encounter Medications at Time [...] 1 03/01/2025 ergocalciferol (Vitamin D-2) 1.25 MG (58930 UT) capsuleIndications: Vitamin D deficiency Take 1 [...] a day. 180 tablet 3 05/07/2025 5 Multiple Vitamins-Minerals (COMPLETE WOMENS PO) Take 1 tablet by mouth in the morning. omeprazole (PriLOSEC) [address] capsule Take 1 capsule by mouth 2 times a day. Do not crush or chew. 60 capsule 1 06/03/2025 ondansetron ODT (Zofran-ODT) 8 MG disintegrating tablet [...] a day. 60 tablet 11 06/03/2025 6 rosuvastatin (Crestor) 20 MG tablet Take 1 tablet by mouth nightly. 90 tablet 2 06/11/2025 [place] 0.6 MG/0.6ML solution auto-injectorIndica tions:Type 2 [...] capsule before bedtime. 60 capsule 2 03/01/2025 calcitriol (Rocaltrol) 0.25 MCG capsuleIndications: Chronic kidney disease, stage 3b (CMS/HCC) Take 1 capsule by mouth daily. 30 capsule 2 04/22/2025 5 midodrine (Proamatine) 5 MG tablet Take 3 tablets by mouth 3 times a day. 270 tablet 11 06/05/2025 5 rosuvastatin (Crestor) 20 MG tablet Take 1 tablet by mouth nightly. 08/29/2020 5 documented as of this encounter Miscellaneous Notes * Golden Hurst RN - 06/06/2025 11:50 AM EDT Images from the original note were not included. [id number] Discharge Instructions for Thoracentesis Thoracentesis is a [...] blood. Last Reviewed Date: 2025 00:00:00 ?? [id number] The [employer]. All rights reserved. This information is not intended as a substitute for professional medical care. Always follow your healthcare professional's instructions. * [facility] - Golden Wilhelm RN - 06/06/2025 11:50 AM EDT Images from the original note were not included. [id number] Discharge Instructions for Paracentesis Paracentesis is a [...] fainting. Last Reviewed Date: 2025 00:00:00 ?? 5621-6482 [employer]. All rights reserved. This information is not intended as a substitute for professional medical care. Always follow your healthcare professional's instructions. * Post-Procedure Note - Marianna Gordon APRN - 06/06/2025 9:30 AM EDT Vascular and Interventional Radiology Brief Postprocedure Note Performed by: Marianna Gordon APRN Cnc Supervisor: LOUISE Pre-operative Diagnosis: right pleural effusion and [...] are consistent with and integrated into the [employer] of Liver Diseases [...] is no recent study available for direct wiko-np-vliu comparison. Assessment & Plan: Decompensated MASH cirrhosis [...] the care of this patient. Marianna Gordon, LABEL DESIGNER Interventional Radiology [phone] [1] Past Medical History: Diagnosis Date ADHD (attention deficit hyperactivity disorder) Allergic Anxiety disorder, unspecified Anxiety Bleeding gums Blood in urine Cataract Chronic kidney disease Cirrhosis (CMS/HCC) Colon cancer screening 09/20/2019 Added automatically from request for surgery [id number] Coronary artery disease Depression 1995 Diabetes mellitus [...] 1979 BLADDER SURGERY N/A Bladder surgery from [facility] BREAST BIOPSY 2011 BREAST SURGERY 2010 BUNIONECTOMY Right CATARACT EXTRACTION Bilateral 2016 CHOLECYSTECTOMY 1979 ESOPHAGOGASTRODUODENOSCOPY HYSTERECTOMY N/A Hysterectomy from [facility] KNEE SURGERY Bilateral ORAL SURGERY N/A Oral surgery from [facility] OTHER SURGICAL HISTORY 2014 ROOT CANAL WISDOM [...] Rfl: 1 ergocalciferol (Vitamin D-2) 1.25 MG (67521 UT) capsule, Take 1 capsule by mouth [...] 10 mL, Infiltration, Once, Micheal Glasgow APRN, DNP Insert peripheral IV, , , Once AND Saline lock IV, , , Once AND sodium chloride 0.9 % flush10 mL, 10 mL, Intravenous, q12h AND sodium chloride 0.9 % flush 10 mL, 10 mL, Intravenous, PRN,Micheal Glasgow APRN, DNP documented in this encounter Plan of Treatment Upcoming Encounters Date Type Department Care Team (Late st Contact Info) Description 06/27/2025 9:30 AM EDT Appointment [facility] Interventional Radiology [address] [place] [address] 06/27/2025 10:30 AM EDT Appointment [facility] Inter[facility] Radiology [address] [place] [address] 07/04/2025 10:30 AM EDT Appointment [facility] Interventional Radiology [address] [place] [address] 07/04/2025 11:30 AM EDT Appointment [facility] Interventional Radiology [address] [place] [address] 07/09/2025 2:40 PM EDT Office Visit [facility] Mineral Metabolism [address], [address] [place] [address] Ar Dominique MD [address] [facility] [address] [place] [address] 07/11/2025 10:30 AM EDT Appointment [facility] Interventional Radiology [address] [place] [address] 07/11/2025 11:30 AM EDT Appointment [facility] Interventional Radiology [address] [place] [address] 07/18/2025 10:30 AM EDT Appointment [facility] Interventional Radiology [address] [place] [address] 07/18/2025 11:30 AM EDT Appointment [facility] Interventional Radiology [address] [place] [address] 07/25/2025 10:30 AM EDT Appointment [facility] Interventional Radiology [address] [place] [address] 07/25/2025 11:30 AM EDT Appointment [facility] Interventional Radiology [address] [place] [address] 07/31/2025 9:00 AM EDT Office Visit [address] [place] [address] Alvarez Zimmer MD [address] [place] [address] 08/20/2025 9:30 AM EDT Clinical Support [facility] [place] [address] [place] [address] 08/20/2025 10:30 AM EDT Social Work [facility] [place] [address] [place] [address] [place] [address] 08/20/2025 11:00 AM EDT Office Visit [facility] [place] [address] [place] [address] Jude Duque MD [address] [place] [address] 10/30/2025 1:20 PM EST Office Visit [facility] Endocrinology [address] [place] [address] Sharif Moreno, DPM [address] [place] [address] documented as of this encounter [...] 06/06/2025 12:18 PM us Marianna N Cheeks LABEL DESIGNER IMG XR PROCEDURES Final Resu lt * [...] by ascites and intermittent hepatic hydrothorax. TECHNIQUE: Inspector Rough Castings: Marianna Gordon APRN Secondary Blood Bank Custodian: None. Nurse: Aleksandr Technologist: Lilliana Phillips Dose: [...] complicated by ascites and intermittenthepatic hydrothorax. TECHNIQUE: Inspector Rough Castings: Marianna Gordon APRN Secondary Blood Bank Custodian: None. Nurse: Aleksandr Technologist: Lilliana Phillips Dose: [...] by ascites and intermittent hepatic hydrothorax. TECHNIQUE: Inspector Rough Castings: Marianna Gordon APRN Secondary Blood Bank Custodian: None. Nurse: Aleksandr Technologist: Lilliana Phillips Dose: [...] complicated by ascites and intermittenthepatic hydrothorax. TECHNIQUE: Inspector Rough Castings: Marianna Gordon APRN Secondary Blood Bank Custodian: None. Nurse: Aleksandr Technologist: Lilliana Phillips Dose: [...] Mike Orr MD on 06/06/2025 4:13 PM Marianna Gordon LABEL DESIGNER IMG US PROCEDURES Final Resu lt * Protein - Ascites (06/06/2025 9:36 AM EDT) Total Protein, Fluid 0.8 g/dL 06/06/2025 2:36 PM EDT [facility] Ascites Peritoneal cavity structure / Unknown 06/06/2025 9:36 AM EDT 06/06/2025 1:21 PM EDT Narrative [facility] - 06/06/2025 2:36 PM EDT This test was developed and its performance characteristics determined by [facility]. The U.S. Food and Drug Administration has not approved or cleared this test. However, FDA clearance or approval is not currently required for clinical use. The results are not intended to be used as the sole means for clinical diagnosis or patient management decisions. Marianna Metcalf Cheeks LABEL DESIGNER LAB BODY FLUIDS AND STOOLS O RDERABLES Final Result Performing Organization Address [facility]/ZIP Co de Phone Number [facility] [address] [place] [address] * Body fluid, cytospin, pathologist interpretation (06/06/2025 9:35 AM EDT) Specimen Type Body Fluid LAB HEMATOLOGY METHOD 06/07/2025 3:15 PM EDT [facility] Specimen Source, Body Fluid Peritoneal Fluid LAB HEMATOLOGY METHOD 06/07/2025 3:15 PM EDT [facility] Clinical Diagnosis, Body Fluid Ascites LAB HEMATOLOGY METHOD 06/07/2025 3:15 PM EDT [facility] Interpretation , Body Fluid No evidence of malignancy Predominantly chronic inflammatory cells Moderate blood A resident was involved in the service. I attest I examined the relevant preparations for the specimens and confirmed the diagnosis or interpretation. 06/07/2025 3:15 PM EDT [facility] Pathologist Signature, Body Fluid 06/07/2025 3:15 PM EDT [facility] Comment:Reviewed by: Kadie dobbs MD LAB CP ASR DISCLAIMER Yes 06/07/2025 3:15 PM EDT [facility] Body Fluid Peritoneal fluid / Unknown Non-blood Collection / Unknown 06/06/2025 9:35 AM EDT 06/06/2025 1:21 PM EDT us Marianna N Cheeks LABEL DESIGNER LAB BODY FLUIDS AND STOOLS O RDERABLES Final Result Performing Organization Address City/[facility]/ZIP Co de Phone Number [facility] [address] [place] [address] * (ABNORMAL) Body Fluid Cell Count With Diff - Ascites (06/06/2025 9:35 AM EDT) Color, Body fluid Red LAB HEMATOLOGY METHOD 06/06/2025 5:43 PM EDT [facility] Appearance, Body fluid Cloudy(A) LAB HEMATOLOGY METHOD 06/06/2025 5:43 PM EDT [facility] Volume, Body fluid 35.0 cc LAB HEMATOLOGY METHOD 06/06/2025 5:43 PM EDT [facility] Fluid Container Specimen received in miscellaneous container LAB HEMATOLOGY METHOD 06/06/2025 5:43 PM EDT [facility] Red Blood Cell Count, Body fluid 29,000 uL LAB HEMATOLOGY METHOD 06/06/2025 5:43 PM EDT [facility] Total Nucleated Cell Count, Body fluid 319 uL LAB HEMATOLOGY METHOD 06/06/2025 5:43 PM EDT [facility] Neutrophils %, Body fluid 4 % LAB HEMATOLOGY METHOD 06/06/2025 5:43 PM EDT [facility] Lymphocytes %, Body fluid 56 % LAB HEMATOLOGY METHOD 06/06/2025 5:43 PM EDT [facility] Monocytes/Macr ophages %, Body fluid 36 % LAB HEMATOLOGY METHOD 06/06/2025 5:43 PM EDT [facility] Eosinophils %, Body fluid 0 % LAB HEMATOLOGY METHOD 06/06/2025 5:43 PM EDT [facility] Lining/Mesothe lial Cells %, Body fluid 4 % LAB HEMATOLOGY METHOD 06/06/2025 5:43 PM EDT [facility] Neutrophils Absolute (PMN), Body fluid 13 uL LAB HEMATOLOGY METHOD 06/06/2025 5:43 PM EDT [facility] Lymphocytes Absolute, Body fluid 179 uL LAB HEMATOLOGY METHOD 06/06/2025 5:43 PM EDT [facility] Monocytes/Macr ophages Absolute, Body fluid 115 uL LAB HEMATOLOGY METHOD 06/06/2025 5:43 PM EDT [facility] Eosinophils Absolute, Body fluid 0 uL LAB HEMATOLOGY METHOD 06/06/2025 5:43 PM EDT [facility] Basophils Absolute, Body fluid 0 uL LAB HEMATOLOGY METHOD 06/06/2025 5:43 PM EDT [facility] Lining/Mesothe lial Cells Absolute, Body fluid 13 uL LAB HEMATOLOGY METHOD 06/06/2025 5:43 PM EDT [facility] Comment, Body fluid None LAB HEMATOLOGY METHOD 06/06/2025 5:43 PM EDT [facility] Comment:This is an appended report. These results have been appended to a previously preliminary verified report. Basophils %, Body fluid 0 % LAB HEMATOLOGY METHOD 06/06/2025 5:43 PM EDT [facility] Body Fluid Peritoneal fluid / Unknown Non-blood Collection / Unknown 06/06/2025 9:35 AM EDT 06/06/2025 1:21 PM EDT Marianna Gordon LABEL DESIGNER LAB BODY FLUIDS AND STOOLS ORDERABLES NO SPECIMEN TYPE/SOURCE Final Result [facility] [address] [place] [address] documented in this encounter Visit Diagnoses Diagnosis [...] documented as of this encounter Care Teams Show Horse Driver Relationship Specialty Start Date End Date Alvarez Zimmer MD [address] [place] [address] PCP - General Family Medicine 12/07/24 Lea Fernando [address] [facility] [address] [place] [address] Experimental Display Builder Endocrinology 08/29/24 Rachel Ray, LABEL DESIGNER [address] [place] [id number] Nurse Practitioner Gastroenterology 09/24/24 Tamera Isabel, MG VALUE-BASED TRANSFORMATION PROGRAM Licensed Practical Nurse 05/29/25 documented as of this encounter
--- OUTSIDE RECORDS SUMMARY | 2025-06-06 11:20 | XMS_ITS | Encounter Summary ---
Author Organization Healthcare Address [address] [place] [address] Care Team Providers Care Rubber Attacher Name Role Phone Lea Fernando Unavailable [phone] Rachel Ray BOWLING BALL ASSEMBLER Unavailable [phone] Alvarez Zimmer MD Primary Care Provider [phone] Tamera Isabel LPN Unavailable Unavailabl e Encounter Details Date Type Department Care Team (Latest Contact Info) Description 06/06/2025 11:20 AM EDT - 06/06/2025 11:59 PM EDT Hospital Encounter [facility] Radiology [address] [place] [address] Discharge Disposition: Home or Self Care Social [...] often do you attend chur ch or orthodoxy services? Patient unable to answer [...] slept in a skilled nursing (including now)? Yes 08/29/2024 PHQ-9 Answer Date [...] in the past 12 m [facility], were you homeless or living in a skilled nursing (including now)? No 03/06/2025 Humiliation, Afraid, Rape, [...] more drinks on one occasion? Never 06/05/2025 [facility] ional [facility] - [...] in the past 12 m [facility], were you homeless or living in a skilled nursing (including now)? No 05/29/2025 CAGE ASSESSMENT Answer [...] drink first t kennedy in the morning (EYE-BEAM PRESS OPERATOR) to steady your nerves or to [...] 1 03/01/2025 ergocalciferol (Vitamin D-2) 1.25 MG (14270 UT) capsuleIndications: Vitamin D deficiency Take 1 [...] Appointment [facility] Interventional Radiology [address] [place] [address] 06/27/2025 10:30 AM EDT Appointment [facility] Interventional Radiology [address] [place] [address] 07/04/2025 10:30 AM EDT Appointment [facility] Interventional Radiology [address] [place] [address] 07/04/2025 11:30 AM EDT Appointment [facility] Interventional Radiology [address] [place] [address] 07/09/2025 2:40 PM EDT Office Visit [facility] Bone & Mineral Metabolism [address] [place] [address] Ar Dominique MD [address] [facility] [address] [place] [address] 07/11/2025 10:30 AM EDT Appointment [facility] Interventional Radiology [address] [place] [address] 07/11/2025 11:30 AM EDT Appointment [facility] Interventional Radiology [address] [place] [address] 07/18/2025 10:30 AM EDT Appointment [facility] Interventional Radiology [address] [place] [address] 07/18/2025 11:30 AM EDT Appointment [facility] Interventional Radiology [address] [place] [address] 07/25/2025 10:30 AM EDT Appointment [facility] Inter[facility] Radiology [address] [place] [address] 07/25/2025 11:30 AM EDT Appointment [facility] Interventional Radiology [address] [place] [address] 07/31/2025 9:00 AM EDT Office Visit [facility] [address] [place] [address] Alvarez Zimmer MD [address] [place] [address] 08/20/2025 9:30 AM EDT Clinical Support [facility] [address] [address] 08/20/2025 10:30 AM EDT Social Work [facility] [address] [address] [place] [address] 08/20/2025 11:00 AM EDT Office Visit [facility] [address] [address] Jude Duque MD [address] [place] [address] 10/30/2025 1:20 PM EST Office Visit [facility] Endocrinology [address] [place] [address] Sharif Moreno, DPM [address] [place] [address] documented as of this encounter Procedures Procedure Name Priority Date/Time Associated Diagnosis Comments XR CHEST 1 VIEW Routine 06/06/2025 11:49 AM EDT documented in this encounter Results [...] MD on 06/06/2025 12:18 PM us Marianna Gordon BOWLING BALL ASSEMBLER IMG XR PROCEDURES Final Resu lt documented [...] documented as of this encounter Care Teams Rubber Attacher Relationship Specialty Start Date End Date Alvarez Zimmer MD [address] [place] [address] PCP - General Family Medicine 12/07/24 Lea Fernando [address] [facility] [address] [place] [address] Automatic Dispenser Mechanic Endocrinology 08/29/24 Rachel Ray APRN [address] [place] [address] Nurse Practitioner Gastroenterology 09/24/24 Tamera Isabel LPN VALUE-BASED TRANSFORMATION PROGRAM Licensed Practical Nurse 05/29/25 documented as of this encounter
--- OUTSIDE RECORDS SUMMARY | 2025-06-11 10:30 | XMS_ITS | Encounter Summary ---
Author Organization Address [address] [place] [address] Care Team Providers Care Safety Net Maker Name Role Phone Lea Fernando Unavailable [phone] Rachel Ray HEAD SCREEN WORKER Unavailable [phone] Alvarez Zimmer MD Primary Care Provider [phone] Tamera Isabel CHIEF EMBALMER Unavailable Unavailabl e Reason for Visit * Consultation (Routine) - Closed Specialty Diagnoses / Procedures Referred By Contac t Referred To Contact Transplant Diagnoses End-stage liver disease (CMS/HCC) Gerson Arora MD [address] [address] Phone: tel: fax: [facility] [address] [address] Phone: tel: fax: Referral ID Status Reason Start Date Expiration Date V isits Requested Visits Authorized [id number] Closed Specialty Services Required 05/14/2025 11/13/2026 1 1 Encounter Details Date Type Department Care Team (Late st Contact Info) Description 06/11/2025 10:30 AM EDT Social Work [facility] [address] [address] Lea Reilly, [place] [address] Social History Tobacco Use Types Packs/Day Years [...] often do you attend [facility] or spiritism services? Patient unable to answer 01/10/2025 Do you belong to any clubs o r organizations such as orthodoxy groups, unions, fraternal or athletic groups, or [...] any time in the past 12 m [facility], were you homeless or living in a [...] How often do you attend chur or spiritism services? Never 05/29/2025 Do you belong to any clubs o r organizations such as orthodoxy groups, unions, fraternal or athletic groups, or [...] more drinks on one occasion? Never 06/05/2025 [facility] [place] of Occupat ional Health - Occupational Stress [...] any time in the past 12 m [facility], were you homeless or living in a [...] drink first t kennedy in the morning (EYE-RECORDS ADMINISTRATOR) to steady your nerves or to get [...] then returned to her sister's home in [place] where both sister and mother provided pt [...] Appointment [facility] Interventional Radiology [address] [place] [address] 06/27/2025 10:30 AM EDT Appointment [facility] Inter[facility] Radiology [address] [place] [address] 07/04/2025 10:30 AM EDT Appointment [facility] Inter[facility] Radiology [address] [place] [address] 07/04/2025 11:30 AM EDT Appointment [facility] Interventional Radiology [address] [place] [address] 07/09/2025 2:40 PM EDT Office Visit [facility] Met[facility] [address] [facility], [address] [place] [address] Ar Dominique MD [address] [facility] [address] [place] [address] 07/11/2025 10:30 AM EDT Appointment [facility] Interventional Radiology [address] [place] [address] 07/11/2025 11:30 AM EDT Appointment [facility] Inter[facility] Radiology [address] [place] [address] 07/18/2025 10:30 AM EDT Appointment [facility] Inter[facility] Radiology [address] [place] [address] 07/18/2025 11:30 AM EDT Appointment [facility] [address] [place] [address] 07/25/2025 10:30 AM EDT Appointment [facility] [address] [place] [address] 07/25/2025 11:30 AM EDT Appointment [facility] Inter[facility]iology [address] [place] [address] 07/31/2025 9:00 AM EDT Office Visit [address] [address] Alvarez Zimmer MD [address] [address] 08/20/2025 9:30 AM EDT Clinical Support [facility] [address] [place] [address] 08/20/2025 10:30 AM EDT Social Work [facility] [address] [place] [address] [place] [address] 08/20/2025 11:00 AM EDT Office Visit [facility] [address] [place] [address] Jude Duque MD [address] [place] [address] 10/30/2025 1:20 PM EST Office Visit [facility] Endocrinology [address] [place] [address] Sharif Moreno, DPM [address] [place] [address] documented as of this encounter [...] documented as of this encounter Care Teams Safety Net Maker Relationship Specialty Start Date End Date Alvarez Zimmer MD [address] [address] PCP - General Family Medicine 12/07/24 Lea Fernando [address] [place] [address] Director Systems Endocrinology 08/29/24 Rachel Ray APRN [address] [facility] [address] [place] [address] Nurse Practitioner Gastroenterology 09/24/24 Tamera Isabel LPN VALUE-BASED TRANSFORMATION PROGRAM Licensed Practical Nurse 05/29/25 documented as of this encounter
--- OUTSIDE RECORDS SUMMARY | 2025-06-11 11:20 | XMS_ITS | Encounter Summary ---
Author Organization Healthcare Address [address] [place] [address] Care Team Providers Care Tractor Distributor Name Role Phone Lea Fernando Unavailable [phone] Rachel Ray PAVING MACHINE OPERATOR Unavailable [phone] Alvarez Zimmer MD Primary Care Provider [phone] Tamera Isabel STIFF LEG DERRICK OPERATOR Unavailable Unavailabl e Reason for Visit * Reason Comments Pre-Liver Txp Follow-up Encounter Details Date Type Department Care Team (Latest Contact Info) Description 06/11/2025 11:20 AM EDT Office Visit [facility] [address] [place] [address] Octavia Herrera PA [address] [facility] [address] [place] [address] Hepatic encephalopathy (CMS/HCC) (Primary Dx); 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 Patient unable to answer 01/10/2025 Do [...] week 05/29/2025 How often do you attend [facility] or buddhist services? Never 05/29/2025 Do you belong to [...] more drinks on one occasion? Never 06/05/2025 [facility] [place] of Occupat ional Health - Occupational Stress [...] drink first t kennedy in the morning (EYE-COPY SUPERVISOR) to steady your nerves or to [...] Sign Reading Time Taken Comments Blood Pressure 135/69 06/11/2025 10:53 AM EDT Pulse 80 06/11/2025 10:53 AM EDT Temperature 36.6 C (97.9 F) 06/11/2025 10:53 AM EDT Respiratory Rate 16 06/11/2025 10:53 AM EDT Oxygen Saturation 98% 06/11/2025 10:53 AM EDT Inhaled Oxygen Concentration - - Weight 82 kg (180 lb 12.4 oz) 06/11/2025 10:53 A M EDT Height 165.1 cm (5' 5 ) 06/11/2025 10:53 AM EDT Body Mass Index 30.08 06/11/2025 10:53 AM EDT documented in this encounter Functional [...] Progress Notes - Octavia Herrera PA - 06/11/2025 11:20 AM EDT Images from the original note were not included. Transplant Hepatology Note History of Presenting Illness Gabi Zimmer is a 64 y.o. female with past medical history of ADHD, Anxiety disorder , Depression, Obesity, obstructive sleep apnea, Type 2 diabetes mellitus, asthma, osteoarthritis, MASH cirrhosis decompensated with ascites, HE came to the clinic for follow up. Listed inactive for OLT, pending SLK depending on kidney function Has had an OPEN CCY MELD 23 Last seen 05/07/25 ED 05/31/25 - AMS - missed lactulose Continues to need thoracentesis and paracentesis. Reports she feels very full of fluid of fluid today. Scheduled every Off diuretics On midodrine 20 mg TID. Reports some issues with Notes blood in urine sample today. Also notes some concerns with incontinence and having to wear depends. Will know she needs to go but doesn't make it in time. Reports confusion on 05/31 -couldn't figure out how to use her phone, walked to neighbors without shoes on; this is when she was living alone in [place]. Reports she didn't know what she was doing, time, day, etc. Now staying with sister in [place]. Reports she has ordered a button thing to wear around her neck Sister, lj, sent a note saying out of it she can't use her phone, can't remember how or what medicine she takes, doesn't know day or date, vision is poor. Reports more bad days than good, feeling more out of it. Reports difficulty following insulin. Reports sister will tell her there is no reason to go the ER. Reports missing a dose a day of lactulose because she was forgetting. Reports currently taking 3 x a day religiously. Already taken today and had 2 BM already. Going at least 3 x a day every day No melena, hematemesis, coffee ground emesis. Vomiting but no blood in it. Gets choked easily, evenon her own spit. Concerned about drool. Also liquids. Points to the base of her neck and and base of chin will get choked up. Feels like her ears are ringing for the last month. Feels like she can't hear. Left is worse than right. Having episodes where she feels like she is going to pass out the last few nights. Sister had a foot surgery. Still recovering. They shortened her big toe a big. Mother has worseningblood pressure due to worrying about. Son has health issues happening with his daughter right now Family feels inadequate in being able to provide care at this time. She admits that living alone isn't working for her. Feels like compazine is more effective than zofran She was seen 11/07/[address] Hraris for evaluation of possible kidney transplant. Patient [...] fatty liver since 1996. Had admission to [facility] for hepatic encephalopathy in 01/2024. [...] daily, Use in each nostril asdirected B-D UF III MINI PEN NEEDLES 31G X 5 MM misc B-D ULTRAFINE III SHORT PEN 31G X [...] 2 times daily rosuvastatin (CRESTOR) 20 mg, Oral, Nightly Tums E-X 750 mg, Oral, Daily [...] 07/17/2019, 10/30/2019 Vital Signs Visit Vitals BP 135/69 Pulse 80 Temp 36.6 ??C (97.9 ??F) Resp 16 Ht 1.651 m (5' 5 ) Wt 82 kg (180 lb 12.4 oz) SpO2 98% BMI 30.08 kg/m?? OB Status Postmenopausal Smoking Status Never BSA 1.94 m?? Physical Exam General - well nourished [...] - pleasant, calm, cooperative. Labs MELD 3.0: 23 at 06/11/2025 9:24 AM MELD-Na: 21 at 06/11/2025 9:24 AM Calculated from: Serum Creatinine: 1.58 mg/dL at 06/11/2025 9:24 AM Serum Sodium: 137 mmol/L at 06/11/2025 9:24 AM Total Bilirubin: 2.8 mg/dL at 06/11/2025 9:24 AM Serum Albumin: 3.3 g/dL at 06/11/2025 9:24 AM INR(ratio): 1.8 at 06/11/2025 9:24 AM Age at listin years Sex: Female at 06/11/2025 9:24 AM AFP Lab Results Component Value Date/Time AFP 4.0 05/07/2025 0858 AFP <2.3 10/22/2024 1144 HgB Lab Results Component Value Date/Time HGB 10.0 (L) 06/11/2025 0924 HGB 10.0 (L) 06/05/2025 1552 WBC Lab Results Component Value Date/Time WBC 4.49 06/11/2025 0924 WBC 4.22 06/05/2025 1552 A1c Lab Results Component Value Date/Time HGBA1C 7.3 (H) 05/23/2025 0927 HGBA1C 7.4 01/11/2024 1038 HGBA1C 10.8 (A) 11/24/2021 0946 Lab Results Component Value Date/Time AST 53 (H) 06/11/2025 0924 ALT 21 06/11/2025 0924 ALKPHOS 211 (H) 06/11/2025 0924 BILITOT 2.8 (H) 06/11/2025 0924 INR 1.8 (H) 06/11/2025 0924 ALBUMIN 3.3 (L) 06/11/2025 0924 CREATININE 1.58 (H) 06/11/2025 0924 AFP 4.0 05/07/2025 0858 Lab Results Component Value Date/Time HGB 10.0 (L) 06/11/2025 0924 WBC 4.49 06/11/2025 0924 PLT 68 (L) 06/11/2025 0924 Hepatitis Serologies Lab Results Component Value Date/Time HEPBSAG Negative 01/10/2025 0307 ZO Non-Reactive 10/28/2022 0843 HECG Negative 10/22/2024 1144 HAG Negative 01/10/2025 0307 Work-up Labs Lab Results Component Value Date/Time FERRITIN 280 (H) 06/05/2025 1552 TIBC 116 (L) 10/22/2024 0019 AAT 137 10/22/2024 1144 CERULOPLSM 20 10/22/2024 1144 HGBA1C 7.3 (H) 05/23/2025 0927 HGBA1C 7.4 01/11/2024 1038 HGBA1C 10.8 (A) 11/24/2021 0946 CHOL 70 10/22/2024 0019 LDLCALC 32 10/22/2024 0019 LDLCALC 100 04/30/2016 0920 HDL 25 (L) 10/22/2024 0019 TRIG 49 10/22/2024 0019 TSH 2.03 10/22/2024 0019 Assessment and Plan Problem List Items Addressed This Visit Chronic kidney disease, stage 3b (CMS/HCC) Hepatic encephalopathy (CMS/HCC) - Primary 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) (CMS/HCC) (Chronic) Hx of spontaneous bacterial peritonitis Other ascites Caregiver not readily available Gabi Zimmer is a 64 y.o. female with past medical history of ADHD, Anxiety disorder , Depression, Obesity, obstructive sleep apnea, Type 2 diabetes mellitus, asthma, osteoarthritis, MASH cirrhosis decompensated with ascites, HE came to the clinic for follow up. Listed inactive for OLT, pending SLK depending on kidney function Has had an OPEN CCY MELD 23 # Decompensated MASH cirrhosis Complications of liver disease include: Ascites, Hepatic encephalopathy History of: DM, HLD, Obesity Chemical dependency: None --discussed MELD score, liver allocation, listing process -now listed for OLT and inactive after discussions during 05/07/25 visit - today we further discussed this and she met with social work as well, she is currently living with sister but family in general doesn't feel they're able to provide full care for transplant at this time (see also SW note), considerations of palliative care vs. Livingin a facility --avoid NSAIDS, can take acetaminophen but not to exceed 2000 mg a day. --will be reviewed in our upcoming committee, remain inactive on the list at this time --will continue to follow to reassess the situation at this time # Ascites # Hepatic hydrothorax Now needing frequent thoracentesis and para - weekly SBP: Yes during last admission and is currently on Cipro SBP secondary prophylaxis. Continues to take Cipro Diuretics - off --continue LVP PRN, thora PRN --continue midodrine 20 mg TID --avoid ROSSI-I and ARBs as well as CCB # HRS CARLOTTA # CKD stage II - III Per chart review, her serum creatinine was 0.72 on 11/30/2023 and 0.85 on 06/15/2024. She was admitted to the hospital with creatinine of 2.97; Creatinine was 1.73 at time of discharge seen by transplant nephrology 11/07/2024 - not a candidate for dual listing at this time - continueto monitor creatinine weekly. Could consider dual listing if eGFR remains less than or equal to 25mL/min. --Continue to monitor for need for SLK # Hepatic Encephalopathy: On Lactulose and Xifaxan at home Admitted 01/08 - 01/14/25 - presented with acute encephalopathy, intubated for airway protection, admitted to MICU. Extubated and downgraded to medical floors on 01/11. Has had several admission/ER visits since this --Continue lactulose to titrate for 2-3 loose bowel movements --Continue Rifaximin 550 mg BID --see below re: anxiety/depression/need for neurocog --discussions per HPI re: lactulose compliance # Esophageal varices screening- # Esophageal ulcer [...] BID x2 months # HCC surveillance Last imaging: CT 05/07/25 - LR negative Lab Results Component Value Date AFP 4.0 05/07/2025 --continue q6 monthly HCC surveillance with imaging and AFP, next due in April # Nausea, Abd pain --as above, ulcer, started omeprazole --seems related to volume of ascites as well (improves after LVP) --transition to compazine seems more effective than zofran # Anxiety/depression # Need for neurocog eval Son reports she has been easily irritated and cries easily this past week. She reports living with sister and mom and sister recently had surgery and mom has been helping both of them. She does get frustrated that she never has any privacy. She speaks to a counselor via TH but her mom is able to listen [...] her stomach I instructed her to stop namenda, JHONNY today Last committee preview note 01/14/25 - JHONNY recommended neurocog eval Neurocog eval was seen on 02/05/25 - Overall, the results of this evaluation are unlikely to represent a barrier to transplantation or the post-transplant care process; No Neurocognitive Disorder at This Time. --recommended - methylmalonic acid, homocysteine, folate, T4, and vitamins D, B1, B12, and B6) - check next visit # Moderate protein-calorie malnutrition -- Counseled on the importance of increasing protein intake, advised to get 1.2-1.5 gram/kg a day. Advsied to take late night snack/shake and upon waking up and several times a day # DM Reports doing overall okay since discharge. Trying to control her BS, has been reading as high onher monitor and reached out to her child and family counselor and they have been adjusting. # Osteoporosis - DEXA scan done today showed osteoporosis Health Maintenance: Immune to Hep A, nonimmune to hep B. Needs Hep B vaccine but could not be given in transplant clinic due to her insurance. Instructed her to obtain at [facility] rehab She reports that she had a colonoscopy done a year ago at [facility] in [place]. Colonoscopy 09/2019- report reviewed and showed left sided diverticulosis, internal hemorrhoids. Five colon polyps that were 3-13 mm in size. Flat polypoid area in the cecum. Status post biopsies andmarking with Suri ink. RTC 10 weeks A total of 52 minutes was spent on this patient encounter [...] Appointment [facility] Interventional Radiology [address] [place] [address] 06/27/2025 10:30 AM EDT Appointment [facility] Interventional Radiology [address] [place] [address] 07/04/2025 10:30 AM EDT Appointment [facility] Interventional Radiology [address] [place] [address] 07/04/2025 11:30 AM EDT Appointment [facility] Interventional Radiology [address] [place] [address] 07/09/2025 2:40 PM EDT Office Visit [facility] Bone & Mineral Metabolism [address], [address] [place] [address] Ar Dominique MD [address] [place] [address] 07/11/2025 10:30 AM EDT Appointment [facility] Interventional Radiology [address] [place] [address] 07/11/2025 11:30 AM EDT Appointment [facility] Interventional Radiology [address] [place] [address] 07/18/2025 10:30 AM EDT Appointment [facility] Interventional Radiology [address] [place] [address] 07/18/2025 11:30 AM EDT Appointment [facility] Radiology [address] [place] [address] 07/25/2025 10:30 AM EDT Appointment [facility] Interventional Radiology [address] [place] [address] 07/25/2025 11:30 AM EDT Appointment [facility] Interventional Radiology [address] [place] [address] 07/31/2025 9:00 AM EDT Office Visit [facility] [address] [place] [address] Alvarez Zimmer MD [address] [place] [address] 08/20/2025 9:30 AM EDT Clinical Support [facility] [address] [place] [address] 08/20/2025 10:30 AM EDT Social Work [facility] [place] [address] [place] [address] [place] [address] 08/20/2025 11:00 AM EDT Office Visit [facility] [place] [address] [place] [address] Jude Duque MD [address] [place] [address] 10/30/2025 1:20 PM EST Office Visit [facility] Endocrinology [address] [place] [address] Sharif Moreno, ROSY [address] [place] [address] documented as of this encounter Visit Diagnoses Diagnosis Hepatic encephalopathy (CMS/HCC)- Primary Hepatic encephalopathy 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) (CMS/HCC) Chronic kidney disease, stage 3b (CMS/HCC) Other ascites Hx of spontaneous bacterial peritonitis Caregiver not readily available documented in this encounter Additional Health Concerns Assessment Noted Time PHQ-9 Depression Total Score: 6 06/11/20 25 10:59 AM EDT A fall risk assessment has been complete d for the patient 06/11/2025 10:59 AM EDT A Body Mass Index follow-up plan has been documented for the patient 06/11/2025 12:07 PM EDT documented as of this encounter Care Teams Tractor Distributor Relationship Specialty Start Date End Date Alvarez Zimmer MD [address] [place] [id number] PCP - General Family Medicine 12/07/24 Lea Fernando [address] [place] [address] Ceramic Chemist Endocrinology 08/29/24 Rachel Ray APRN [address] [facility] [address] [place] [address] Nurse Practitioner Gastroenterology 09/24/24 Tamera Isabel, STIFF LEG DERRICK OPERATOR VALUE-BASED TRANSFORMATION PROGRAM Licensed Practical Nurse 05/29/25 documented as of this encounter
--- OUTSIDE RECORDS SUMMARY | 2025-06-13 10:56 | XMS_ITS | Encounter Summary ---
Author Organization [facility] Address [address] [id number] Care Team Providers Care Screen Vent Binder Name Role Phone Lea Fernando Unavailable [phone] Rachel Ray DEPARTURE CLERK Unavailable [phone] Alvarez Zimmer MD Primary Care Provider [phone] Tamera Isabel LPN Unavailable Unavailabl e Reason for Referral * Clinic-Administered Medication (Routine) - Closed Specialty Diagnoses / Procedures Referred By Contherbert t Referred To Contact Diagnoses Other ascites Procedures NH ABDOM PARACENTESIS DX/THER W IMAGING GUIDANCE Shaniqua Mccurdy APRN [address] [place] [address] Phone: tel: fax: [facility] [address] [place] [address] Phone: tel: fax: Referral ID Status Reason Start Date Expiration Date Visits Re quested Visits Authorized [id number] Closed 06/13/2025 12/13/2026 1 1 * Imaging (Routine) - Closed Specialty Diagnoses / Procedures Referred By Contherbert t Referred To Contact Radiology Diagnoses Other ascites Procedures US Guided Thoracentesis Marianna Gordon APRN [address] [place] [address] Phone: tel: fax: Referral ID Status Reason Start Date Expiration Date Visits Re quested Visits Authorized [id number] Closed 05/22/2025 11/21/2026 1 1 * Imaging (Routine) - Closed Specialty Diagnoses / Procedures Referred By Eder zhu Referred To Contact Radiology Diagnoses Other ascites Procedures US Guided Abdominal Paracentesis Marianna Gordon APRN [address] [place] [address] Phone: tel: fax: Referral ID Status Reason Start Date Expiration Date Visits Re quested Visits Authorized [id number] Closed 05/22/2025 11/21/2026 1 1 Reason for Visit * Imaging (Routine) - Closed Specialty Diagnoses / Procedures Referred By Eder zhu Referred To Contact Radiology Diagnoses Other ascites Procedures US Guided Abdominal Paracentesis Marianna Gordon APRN [address] [place] [address] Phone: tel: fax: Referral ID Status Reason Start Date Expiration Date Visits Re quested Visits Authorized [id number] Closed 05/22/2025 11/21/2026 1 1 Encounter Details Date Type Department Care Team (Latest Contact Info) Description 06/13/2025 10:56 AM EDT - 06/13/2025 1:31 PM EDT Hospital Encounter [facility] Interventional Radiology [address] [place] [address] Alvarez Mcclure Other ascites Discharge Disposition: Home [...] often do you attend chur ch or islam services? Patient unable to answer 01/10/2025 Do you belong to any clubs o r organizations such as spiritism groups, unions, fraternal or athletic groups, or [...] any time in the past 12 m [facility], were you homeless or living [...] week 05/29/2025 How often do you attend [facility] or islam services? Never 05/29/2025 Do you belong to any clubs o r organizations such as spiritism groups, unions, fraternal or athletic groups, or [...] more drinks on one occasion? Never 06/05/2025 [facility] of Occupat ional Health - Occupational Stress [...] any time in the past 12 m [facility], were you homeless or living [...] drink first t kennedy in the morning (EYE-STONE PAVER) to steady your nerves or to get rid of a hangover? 0 10/22/2024 CAGE Questionnaire Score 0 024 Utilities Answer Date Recorded In the past 12 months has th e [employer] gas, oil, or water company threatened to [...] a day. Dx E11.65 1 kit 01/18/2025 calcitriol (Rocaltrol) 0.25 MCG capsuleIndications: Chronic kidney disease, stage 3b (CMS/HCC) Take 1 capsule by mouth daily. 30 capsule 06/10/2025 01/17/202 6 calcium carbonate EX (Tums E-X) 750 MG [...] 1 03/01/2025 ergocalciferol (Vitamin D-2) 1.25 MG (64357 UT) capsuleIndications: Vitamin D deficiency Take 1 [...] times a day. 60 tablet 11 06/03/2025 rosuvastatin (Crestor) 20 MG tablet Take 1 [...] capsule before bedtime. 60 capsule 2 03/01/2025 documented as of this encounter Miscellaneous Notes * Post-Procedure Note - Shaniqua Mccurdy, DEPARTURE CLERK - 06/13/2025 12:30 PM EDT Vascular and [...] are consistent with and integrated into the [employer] the [employer] of Liver Diseases [...] 05/07/2025 1:47 PM Final report signed by aSlina Carpenter MD on 05/07/2025 8:14 PM === [...] to be trileaflet. The cusp(s) are thickened. Thereis calcification of the aortic valve leaflets. There is aortic annular calcfication present. There is mild aortic valve regurgitation. There is mild aortic stenosis. The peak gradient is 18 mmHg. Themean gradient is 10 mmHg. The estimated aortic valve area by the continuity equation is 2.4 cm2. Some of the mild elevation in gradients is due to high flow state. Pericardium: No pericardial effusion. Left Atrium: Intravenous injection of agitated saline demonstrates no evidence of intracardiac orintrapulmonary shunt. There is no recent study available for direct [id number] comparison. 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 Marianna Gordon APRN Interventional Radiology [phone] [1] Past Medical History: Diagnosis Date ADHD (attention deficit hyperactivity disorder) Allergic Anxiety disorder, unspecified Anxiety Bleeding gums Blood in urine Cataract Chronic kidney disease Cirrhosis (CMS/HCC) Colon cancer screening 09/20/2019 Added automatically from request for surgery [id number] Coronary artery disease Depression 1995 Diabetes mellitus [...] 1979 BLADDER SURGERY N/A Bladder surgery from [facility] BREAST BIOPSY 2011 BREAST SURGERY 2010 BUNIONECTOMY Right CATARACT EXTRACTION Bilateral 2016 CHOLECYSTECTOMY 1980 ESOPHAGOGASTRODUODENOSCOPY HYSTERECTOMY N/A Hysterectomy from [facility] KNEE SURGERY Bilateral ORAL SURGERY N/A Oral surgery from [facility] OTHER SURGICAL HISTORY 2015 ROOT CANAL WISDOM [...] Rfl: 1 ergocalciferol (Vitamin D-2) 1.25 MG (65031 UT) capsule, Take 1 capsule by mouth [...] Upcoming Encounters Date Type Department Care Team ([facility] st Contact Info) Description 06/27/2025 9:30 AM EDT Appointment [facility] Interventional Radiology [address] [place] [address] 06/27/2025 10:30 AM EDT Appointment [facility] Interventional Radiology [address] [place] [address] 07/04/2025 10:30 AM EDT Appointment [facility] Interventional Radiology [address] [place] [address] 07/04/2025 11:30 AM EDT Appointment [facility] Interventional Radiology [address] [place] [address] 07/09/2025 2:40 PM EDT Office Visit [facility] Mineral Metabolism [address] [facility], [address] [place] [address] Ar Dominique MD [address] [facility] [address] [place] [address] 07/11/2025 10:30 AM EDT Appointment [facility] Interventional Radiology [address] [place] [address] 07/11/2025 11:30 AM EDT Appointment [facility] Interventional Radiology [address] [place] [address] 07/18/2025 10:30 AM EDT Appointment [facility] Interventional Radiology [address] [place] [address] 07/18/2025 11:30 AM EDT Appointment [facility] Interventional Radiology [address] [place] [address] 07/25/2025 10:30 AM EDT Appointment [facility] Interventional Radiology [address] [place] [address] 07/25/2025 11:30 AM EDT Appointment [facility] Interventional Radiology [address] [place] [address] 07/31/2025 9:00 AM EDT Office Visit [facility] [address] [place] [address] Alvarez Zimmer MD [address] [place] [address] 08/20/2025 9:30 AM EDT Clinical Support [facility] [address] [place] [address] 08/20/2025 10:30 AM EDT Social Work [facility] [address] [place] [address] Deysi Ortega [place], [place] [phone] 08/20/2025 11:00 AM EDT Office Visit [facility] [address] [place] [address] Jude Duque MD [address] [place] [address] 10/30/2025 1:20 PM EST Office Visit [facility] Endocrinology [address] [place] [address] Sharif Moreno, DPNicole [address] [place] [address] documented as of this encounter Procedures Procedure [...] on 06/13/2025 1:49 PM us Shaniqua Mccurdy DEPARTURE CLERK IMG XR PROCEDURES Final Resu lt * [...] by ascites and intermittent hepatic hydrothorax. TECHNIQUE: Senior Director Of [employer]: Shaniqua Mccurdy APRN Secondary Top Frame Fitter: None. Nurse: Bao Technologist: Kalina Phillips Dose: [...] complicated by ascites and intermittenthepatic hydrothorax. TECHNIQUE: Senior Director Of [employer]: Shaniqua Mccurdy APRN Secondary Top Frame Fitter: None. Nurse: Bao Technologist: Kalina Phillips Dose: [...] pleural fluid. [facility] A total of 2.1 L [...] MD on 06/13/2025 3:40 PM us Marianna N Gabrielaeks DEPARTURE CLERK IMG US PROCEDURES Final Resu lt * [...] by ascites and intermittent hepatic hydrothorax. TECHNIQUE: Senior Director Of [employer]: Shaniqua Mccurdy APRN Secondary Top Frame Fitter: None. Nurse: Bao Technologist: aKlina Phillips Dose: NA Medications: Continuous physiologic monitoring [...] complicated by ascites and intermittenthepatic hydrothorax. TECHNIQUE: Senior Director Of [employer]: Shaniqua Mccurdy APRN Secondary Top Frame Fitter: None. Nurse: Bao Technologist: Kalina Phillips Dose: [...] on 06/13/2025 3:40 PM us Marianna Gordon APRN IMG US PROCEDURES Final Resu lt * Body fluid, cytospin, pathologist interpretation (06/13/2025 12:35 PM EDT) Specimen Type Body Fluid LAB HEMATOLOGY METHOD 06/14/2025 3:20 PM EDT [facility] Specimen Source, Body Fluid Peritoneal Fluid LAB HEMATOLOGY METHOD 06/14/2025 3:20 PM EDT [facility] Clinical Diagnosis, Body Fluid Ascites LAB HEMATOLOGY METHOD 06/14/2025 3:20 PM EDT [facility] Interpretation , Body Fluid No evidence of malignancy Predominantly chronic inflammatory cells Light blood A resident was involved in the service. I attest I examined the relevant preparations for the specimens and confirmed the diagnosis or interpretation. 06/14/2025 3:20 PM EDT [facility] Pathologist Signature, Body Fluid 06/14/2025 3:20 PM EDT [facility] Comment:Reviewed by: Kadie dobbs MD LAB CP ASR DISCLAIMER Yes 06/14/2025 3:20 PM EDT [facility] Body Fluid Peritoneal fluid / Unknown Non-blood Collection / Unknown 06/13/2025 12:35 PM EDT 06/13/2025 3:20 PM EDT us Shaniqua Mccurdy DEPARTURE CLERK LAB BODY FLUIDS AND STOOLS O RDERABLES Final Result [facility] [address] [place] [address] * Glucose - Ascites (06/13/2025 12:35 PM EDT) Glucose, Fluid 179 mg/dL 06/13/2025 4:01 PM EDT [facility] Peritoneal Fluid Peritoneal cavity structure / Unknown Non-blood Collection / Unknown 06/13/2025 12:35 PM EDT 06/13/2025 3:20 PM EDT Narrative [facility] - 06/13/2025 4:01 PM EDT [...] for plasma; 3) Glucose < 50 mg/dL. us Shaniqua Mccurdy DEPARTURE CLERK LAB BODY FLUIDS AND STOOLS O RDERABLES Final Result [facility] [address] [place] [address] * Protein - Ascites (06/13/2025 12:35 PM EDT) Total Protein, Fluid 0.7 g/dL 06/13/2025 4:01 PM EDT [facility] Peritoneal Fluid Peritoneal cavity structure / Unknown Non-blood Collection / Unknown 06/13/2025 12:35 PM EDT 06/13/2025 3:20 PM EDT Narrative [facility] - 06/13/2025 4:01 PM EDT This test was developed and its performance characteristics determined by [facility]. The U.S. Food and Drug Administration has not approved or cleared this test. However, FDA clearance or approval is not currently required for clinical use. The results are not intended to be used as the sole means for clinical diagnosis or patient management decisions. Shaniqua Nicole Mccurdy DEPARTURE CLERK LAB BODY FLUIDS AND STOOLS O RDERABLES Final Result Performing Organization Address City/[facility]/ZIP Co de Phone Number [facility] [address] [place] [address] * (ABNORMAL) Body Fluid Cell Count With Diff - Ascites (06/13/2025 12:35 PM EDT) Color, Body fluid Burns LAB HEMATOLOGY METHOD 06/13/2025 6:15 PM EDT [facility] Appearance, Body fluid Cloudy(A) LAB HEMATOLOGY METHOD 06/13/2025 6:15 PM EDT [facility] Volume, Body fluid 9.5 cc LAB HEMATOLOGY METHOD 06/13/2025 6:15 PM EDT [facility] Fluid Container Tube 1 LAB HEMATOLOGY METHOD 06/13/2025 6:15 PM EDT [facility] Red Blood Cell Count, Body fluid 7,000 uL LAB HEMATOLOGY METHOD 06/13/2025 6:15 PM EDT [facility] Total Nucleated Cell Count, Body fluid 152 uL LAB HEMATOLOGY METHOD 06/13/2025 6:15 PM EDT [facility] Neutrophils %, Body fluid 2 % LAB HEMATOLOGY METHOD 06/13/2025 6:15 PM EDT [facility] Lymphocytes %, Body fluid 84 % LAB HEMATOLOGY METHOD 06/13/2025 6:15 PM EDT [facility] Monocytes/Macro phages %, Body fluid 10 % LAB HEMATOLOGY METHOD 06/13/2025 6:15 PM EDT [facility] Eosinophils %, Body fluid 1 % LAB HEMATOLOGY METHOD 06/13/2025 6:15 PM EDT [facility] Lining/Mesothel ial Cells %, Body fluid 3 % LAB HEMATOLOGY METHOD 06/13/2025 6:15 PM EDT [facility] Neutrophils Absolute (PMN), Body fluid 3 uL LAB HEMATOLOGY METHOD 06/13/2025 6:15 PM EDT [facility] Lymphocytes Absolute, Body fluid 128 uL LAB HEMATOLOGY METHOD 06/13/2025 6:15 PM EDT [facility] Monocytes/Macro phages Absolute, Body fluid 15 uL LAB HEMATOLOGY METHOD 06/13/2025 6:15 PM EDT [facility] Eosinophils Absolute, Body fluid 2 uL LAB HEMATOLOGY METHOD 06/13/2025 6:15 PM EDT [facility] Basophils Absolute, Body fluid 0 uL LAB HEMATOLOGY METHOD 06/13/2025 6:15 PM EDT [facility] Lining/Mesothel ial Cells Absolute, Body fluid 5 uL LAB HEMATOLOGY METHOD 06/13/2025 6:15 PM EDT [facility] Comment, Body fluid None LAB HEMATOLOGY METHOD 06/13/2025 6:15 PM EDT [facility] Comment:This is an appended report. These results have been appended to a previously preliminary verified report. Basophils %, Body fluid 0 % LAB HEMATOLOGY METHOD 06/13/2025 6:15 PM EDT [facility] Body Fluid Peritoneal fluid / Unknown Non-blood Collection / Unknown 06/13/2025 12:35 PM EDT 06/13/2025 3:20 PM EDT us Shaniqua Mccurdy APRN LAB BODY FLUIDS AND STOOLS ORDERABLES NO SPECIMEN TYPE/SOURCE Final Result [facility] [address] [place] [address] documented in this encounter Visit Diagnoses Diagnosis [...] documented as of this encounter Care Teams Screen Vent Binder Relationship Specialty Start Date End Date Alvarez Zimmer MD [address] [place] [address] PCP - General Family Medicine 12/07/24 Lea Fernando [address] [facility] [address] [place] [address] [employer] Endocrinology 08/29/24 Rachel Ray, DEPARTURE CLERK [address] [place] [address] Nurse Practitioner Gastroenterology 09/24/24 Tamera Isabel LPN VALUE-BASED TRANSFORMATION PROGRAM Licensed Practical Nurse 05/29/25 documented as of this encounter
--- OUTSIDE RECORDS SUMMARY | 2025-06-13 13:32 | XMS_ITS | Encounter Summary ---
Author Organization Healthcare Address [address] [place] [address] Care Team Providers Care Hand Developer Name Role Phone Lea Fernando Unavailable [phone] Rachel Ray OUTREACH COORDINATOR Unavailable [phone] Alvarez Zimmer MD Primary Care Provider [phone] Tamera Isabel LPN Unavailable Unavailabl e Encounter Details Date Type Department Care Team (Latest Contact Info) Description 06/13/2025 1:32 PM EDT - 06/13/2025 11:59 PM EDT Hospital Encounter [facility] [address] [place] [address] Discharge Disposition: Home or Self Care Social [...] often do you attend chur ch or sabianism services? Patient unable to answer 01/10/2025 Do [...] in the past 12 m [facility], were you homeless or living [...] How often do you attend chur or sabianism services? Never 05/29/2025 Do you belong to [...] more drinks on one occasion? Never 06/05/2025 [facility] - Occupational Stress [...] in the past 12 m [facility], were you homeless or living [...] first t kennedy in the morning (EYE-PUBLIC AFFAIRS MANAGER) to steady your nerves or to [...] 1 03/01/2025 ergocalciferol (Vitamin D-2) 1.25 MG (76047 UT) capsuleIndications: Vitamin D deficiency Take 1 [...] Appointment [facility] [address] [place] [address] 06/27/2025 10:30 AM EDT Appointment [facility] [address] [place] [address] 07/04/2025 10:30 AM EDT Appointment [facility] [address] [place] [address] 07/04/2025 11:30 AM EDT Appointment [facility] [address] [place] [address] 07/09/2025 2:40 PM EDT Office Visit [facility] [employer] [facility] [address] [facility] [address] [facility], [address] [place] [address] Ar Dominique MD [address] [facility] [address] [place] [address] 07/11/2025 10:30 AM EDT Appointment [facility] [address] [place] [address] 07/11/2025 11:30 AM EDT Appointment [facility] [address] [place] [address] 07/18/2025 10:30 AM EDT Appointment [facility] [address] [place] [address] 07/18/2025 11:30 AM EDT Appointment [facility] [address] [place] [address] 07/25/2025 10:30 AM EDT Appointment [facility] [address] [place] [address] 07/25/2025 11:30 AM EDT Appointment [facility] [address] [place], [place] [address] 07/31/2025 9:00 AM EDT Office Visit [facility] [address] [place] [address] Alvarez Zimmer MD [address] [place] [address] 08/20/2025 9:30 AM EDT Clinical Support [facility] [address] [place] [address] 08/20/2025 10:[address] [facility] [address] [place] [address] [place] [address] 08/20/2025 11:00 AM EDT Office Visit [facility] [address] [place] [address] Jude Duque MD [address] [place] [address] 10/30/2025 1:20 PM EST Office [facility] [address] [place] [id number] Sharif Moreno S, DPM [address] [place] [address] documented as of this encounter [...] MD on 06/13/2025 1:49 PM Shaniqua Mccurdy OUTREACH COORDINATOR IMG XR PROCEDURES Final Resu lt documented [...] as of this encounter Care Teams Hand Developer Relationship Specialty Start Date End Date Alvarez Zimmer MD [address] [place] [id number] PCP - General Family Medicine 12/07/24 Lea Fernando [address] [place] [address] Community Living Specialist Endocrinology 08/29/24 Rachel Ray APRN [address] [facility] [address] [place] [address] Nurse Practitioner Gastroenterology 09/24/24 Tamera Isabel LPN VALUE-BASED TRANSFORMATION PROGRAM Licensed Practical Nurse 05/29/25 documented as of this encounter
--- OUTSIDE RECORDS SUMMARY | 2025-06-20 09:03 | XMS_ITS | Encounter Summary ---
Author Organization Healthcare Address [address] [place] [address] Care Team Providers Care Knuckler Name Role Phone Lea Fernando Unavailable [phone] Rachel Ray SAMPLE HAND Unavailable [phone] Alvarez Zimmer MD Primary Care Provider [phone] Tamera Isabel LPN Unavailable Unavailabl e Reason for Referral * Imaging (Routine) - Closed Specialty Diagnoses / Procedures Referred By Eder zhu Referred To Contact Radiology Diagnoses Other ascites Procedures US Guided Abdominal Paracentesis Preeti Andersen APRN [address] [place] [address] Phone: tel: fax: Referral ID Status Reason Start Date Expiration Date Visits Re quested Visits Authorized [id number] Closed 06/20/2025 12/20/2026 1 1 * Clinic-Administered Medication (Routine) - Closed Specialty Diagnoses / Procedures Referred By Eder zhu Referred To Contact Diagnoses Other ascites Procedures CA ABDOM PARACENTESIS DX/THER W IMAGING GUIDANCE Preeti Andersen APRN [address] [place] [address] Phone: tel: fax: [facility] [address] [place] [address] Phone: tel: fax: Referral ID Status Reason Start Date Expiration Date Visits Re quested Visits Authorized [id number] Closed 06/20/2025 12/20/2026 1 1 * Imaging (Routine) - Closed Specialty Diagnoses / Procedures Referred By Eder zhu Referred To Contact Radiology Diagnoses Other ascites Procedures US Guided Thoracentesis Marianna Gordon APRN [address] [place] [address] Phone: tel: fax: Referral ID Status Reason Start Date Expiration Date Visits Re quested Visits Authorized [id number] Closed 05/23/2025 11/22/2026 1 1 Reason for Visit * Imaging (Routine) - Closed Specialty Diagnoses / Procedures Referred By Eder zhu Referred To Contact Radiology Diagnoses Other ascites Procedures US Guided Abdominal Paracentesis Marianna Gordon APRN [address] [place] [address] Phone: tel: fax: Referral ID Status Reason Start Date Expiration Date Visits Re quested Visits Authorized [id number] Closed 04/26/2025 10/26/2026 1 1 Encounter Details Date Type Department Care Team (Latest Contact Info) Description 06/20/2025 9:03 AM EDT - 06/20/2025 1:03 PM EDT Hospital Encounter [facility] Interventional Radiology [address] [place] [address] Shanthi Rooney Other ascites Discharge Disposition: Home [...] you attend chur ch or yazidism services? Patient unable to answer [...] any time in the past 12 [facility], were you homeless or living in a [place] facility (including now)? No 03/06/2025 Humiliation, Afraid, Rape, [...] week 05/29/2025 How often do you attend [facility] or yazidism services? Never 05/29/2025 Do you [...] more drinks on one occasion? Never 06/05/2025 [facility] [place] of Occupat ional Health - Occupational Stress [...] any time in the past 12 m [facility], were you homeless or living in a [place] facility (including now)? No 05/29/2025 CAGE ASSESSMENT Answer [...] drink first t kennedy in the morning (EYE-FORGING PRESS OPERATOR) to steady your nerves or [...] 1 03/01/2025 ergocalciferol (Vitamin D-2) 1.25 MG (76438 UT) capsuleIndications: Vitamin D deficiency Take 1 [...] from the original note were not included. [address] Discharge Instructions for Paracentesis Paracentesis is a [...] fainting. Last Reviewed Date: 2025 00:00:00 ?? [id number] [employer]. All rights reserved. This information is not [...] Appointment [facility]iology [address] [place] [address] 06/27/2025 10:30 AM EDT Appointment [facility] [address] [place] [address] 07/04/2025 10:30 AM EDT Appointment [facility] [address] [place] [address] 07/04/2025 11:30 AM EDT Appointment [facility] [address] [place] [address] 07/09/2025 2:40 PM EDT Office Visit Professional [facility] [address], [address] [place] [address] Ar Dominique MD [address] [place] [address] 07/11/2025 10:30 AM EDT Appointment [facility] [address] [place] [id number] 07/11/2025 11:30 AM EDT Appointment [facility] [address] [place] [address] 07/18/2025 10:30 AM EDT Appointment [facility] [address] [place] [address] 07/18/2025 11:30 AM EDT Appointment [facility] [address] [place] [address] 07/25/2025 10:30 AM EDT Appointment [facility] [address] [place] [address] 07/25/2025 11:30 AM EDT Appointment [facility] [address] [place] [address] 07/31/2025 9:00 AM EDT Office Visit [address] [address] Alvarez Zimmer MD [address] [place] [address] 08/20/2025 9:30 AM EDT Clinical Support [facility] [address] [place] [address] 08/20/2025 10:30 AM EDT Social Work [facility] [address] [place] [address] [place] [address] 08/20/2025 11:00 AM EDT Office Visit [facility] [address] [place] [address] Jude Duque MD [address] [place] [address] 10/30/2025 1:20 PM EST Office Visit [facility] [address] [place] [address] Sharif Moreno, DPM [address] [place] [address] Pending Results Name Type Priority Associated Diagnoses Date /Time US Guided Thoracentesis Imaging Routine Other ascites 06/20/2025 12:32 PM EDT US Guided Abdominal Paracentesis Imaging Routine Other ascites 06/20/2025 12:32 PM EDT documented as of this encounter Procedures Procedure Name Priority Date/Time Associated Diagnosis Comments XR CHEST 1 VIEW STAT 06/20/2025 1:38 PM EDT US GUIDED ABDOMINAL PARACENTESIS Routine 06/20/2025 12:32 PM EDT Other ascites Procedure Note - Preeti Andersen APRN - 06/20/2025 12:32 PM EDTThis note is in progress. CLINICAL INDICATION: This is a 64 y.o. 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 TECHNIQUE: Fire Extinguisher Mechanic: ADRI Andersen Secondary Electronic Commerce Specialist: None. Nurse: Padmini Technologist: Lilliana Phillips Dose: NA Medications: Continuous physiologic monitoring provided by a qualifiedhealthcare professional. Administered: 1% Lidocaine SQ. Antibiotics: NA Time out: 6246 Procedure: After discussion of risks and benefits, [...] the ascites. Ultrasound images were sent to [facility] in PACS. A total of 4.3 liters [...] signed by SOLANGE Hall on 06/22/2025 6:15AM US GUIDED THORACENTESIS Routine 06/20/2025 12:32 PM EDT Other ascites Procedure Note - Preeti Andersen APRN - 06/20/2025 12:32 PM EDTThis note is in progress. CLINICAL INDICATION: This is a 64 y.o. 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 TECHNIQUE: Fire Extinguisher Mechanic: ADRI Andersen Secondary Electronic Commerce Specialist: None. Nurse: Padmini Technologist: Lilliana Phillips Dose: NA Medications: Continuous physiologic monitoring provided by a qualifiedhealthcare professional. Administered: 1% Lidocaine SQ. Antibiotics: NA Time out: 9297 Procedure: After discussion of risks and benefits, [...] signed by SOLANGE Hall on 06/22/2025 6:19AM BODY FLUID CELL COUNT W/ MANUAL DIFFERENTIAL [...] APRN IMG XR PROCEDURES Final Result * Body fluid, cytospin, pathologist interpretation (06/20/2025 12:03 PM EDT) Specimen Type Body Fluid LAB HEMATOLOGY METHOD 06/21/2025 4:37 PM EDT [facility] Specimen Source, Body Fluid Pleural, Right LAB HEMATOLOGY METHOD 06/21/2025 4:37 PM EDT [facility] Clinical Diagnosis, Body Fluid Pleural effusion LAB HEMATOLOGY METHOD 06/21/2025 4:37 PM EDT [facility] Interpretation , Body Fluid No evidence of malignancy Chronic inflammatory cells Lymphocytosis Moderate blood A resident was involved in the service. I attest I examined the relevant preparations for the specimens and confirmed the diagnosis or interpretation. 06/21/2025 4:37 PM EDT [facility] Pathologist Signature, Body Fluid 06/21/2025 4:37 PM EDT [facility] Comment:Reviewed by: Kadie dobbs MD LAB CP ASR DISCLAIMER Yes 06/21/2025 4:37 PM EDT [facility] Body Fluid Structure of right pleural cavity / Unknown Non-blood Collection / Unknown 06/20/2025 12:03 PM EDT 06/20/2025 2:44 PM EDT Preeti Andersen APRN LAB BODY FLUIDS AND STO OLS ORDERABLES Final Result [facility] [address] [place] [address] * Lactate Dehydrogenase, Pleural Fluid - Right (06/20/2025 12:03 PM EDT) LDH, Fluid 57 U/L 06/20/2025 5:36 PM EDT [facility] Pleural Fluid Structure of right pleural cavity / Unknown Non-blood Collection / Unknown 06/20/2025 12:03 PM EDT 06/20/2025 2:44 PM EDT Narrative [facility] - 06/20/2025 5:36 PM EDT No [...] the following criteria are present: (1) pleural hwrnl-az-pecju protein ratio of >0.5, (2) pleural marbb-xp-dmmji LDH ratio of >0.6, or (3) a pleural fluid LDH activity that is >2/3 the upper limit of a normal serum LDH activity. Light's criteria may misclassify ~25% of transudates as exudates in heart failure. These can be identified by calculating a iuvap-rf-kvwvzax albumin gradient (>1.2 g/dL) and/or a xvrbx-wv-drupn protein gradient (>3.1 g/dL). Rising Ambar Andersen DrAvailable LAB BODY FLUIDS AND CPO Commerce ORDERABLES Final Result [facility] [address] [place] [address] * Total Protein, Pleural Fluid - Pleural Right (06/20/2025 12:03 PM EDT) Total Protein, Fluid 1 g/dL 06/20/2025 5:36 PM EDT [facility] Pleural Fluid Structure of right pleural cavity / Unknown Non-blood Collection / Unknown 06/20/2025 12:03 PM EDT 06/20/2025 2:44 PM EDT Narrative [facility] - 06/20/2025 5:36 PM EDT This test was developed and its performance characteristics determined by [facility]. The U.S. Food and Drug Administration has not approved or cleared this test. However, FDA clearance or approval is not currently required for clinical use. The results are not intended to be used as the sole means for clinical diagnosis or patient management decisions. [employer] LAB BODY FLUIDS AND STO OLS ORDERABLES Final Result [facility] [address] [place] [address] * Body Fluid Culture and Gram Stain - Pleural Right (06/20/2025 12:03 PM EDT) Culture No growth at day 4 2024 10:34 AM EDT [facility] Gram Stain Result No organisms seen 06/23/2025 10:34 AM EDT [facility] Gram Stain Result No polymorphonuclear leukocytes seen 06/23/2025 10:34 AM EDT [facility] Pleural Fluid Specimen from pleura obtained by thoracentesis / Unknown Non-blood Collection / Unknown 06/20/2025 12:03 PM EDT 06/20/2025 2:53 PM EDT us Preeti Andersen SAMPLE HAND LAB MICROBIOLOGY - GENE RAL ORDERABLES Final Result Performing Organization Address [facility] Co de Phone Number [facility] [address] [place] [address] * (ABNORMAL) Body Fluid Cell Count w/ Diff - Pleural Right (06/20/2025 12:03 PM EDT) Color, Body fluid Red LAB HEMATOLOGY METHOD 06/20/2025 8:20 PM EDT [facility] Appearance, Body fluid Cloudy(A) LAB HEMATOLOGY METHOD 06/20/2025 8:20 PM EDT [facility] Volume, Body fluid 5.8 cc LAB HEMATOLOGY METHOD 06/20/2025 8:20 PM EDT [facility] Fluid Container Tube 2 LAB HEMATOLOGY METHOD 06/20/2025 8:20 PM EDT [facility] Red Blood Cell Count, Body fluid 18,000 uL LAB HEMATOLOGY METHOD 06/20/2025 8:20 PM EDT [facility] Total Nucleated Cell Count, Body fluid 204 uL LAB HEMATOLOGY METHOD 06/20/2025 8:20 PM EDT [facility] Neutrophils %, Body fluid 0 % LAB HEMATOLOGY METHOD 06/20/2025 8:20 PM EDT [facility] Lymphocytes %, Body fluid 91 % LAB HEMATOLOGY METHOD 06/20/2025 8:20 PM EDT [facility] Monocytes/Macro phages %, Body fluid 6 % LAB HEMATOLOGY METHOD 06/20/2025 8:20 PM EDT [facility] Eosinophils %, Body fluid 1 % LAB HEMATOLOGY METHOD 06/20/2025 8:20 PM EDT [facility] Lining/Mesothel ial Cells %, Body fluid 2 % LAB HEMATOLOGY METHOD 06/20/2025 8:20 PM EDT [facility] Neutrophils Absolute (PMN), Body fluid 0 uL LAB HEMATOLOGY METHOD 06/20/2025 8:20 PM EDT [facility] Lymphocytes Absolute, Body fluid 186 uL LAB HEMATOLOGY METHOD 06/20/2025 8:20 PM EDT [facility] Monocytes/Macro phages Absolute, Body fluid 12 uL LAB HEMATOLOGY METHOD 06/20/2025 8:20 PM EDT [facility] Eosinophils Absolute, Body fluid 2 uL LAB HEMATOLOGY METHOD 06/20/2025 8:20 PM EDT [facility] Basophils Absolute, Body fluid 0 uL LAB HEMATOLOGY METHOD 06/20/2025 8:20 PM EDT [facility] Lining/Mesothel ial Cells Absolute, Body fluid 4 uL LAB HEMATOLOGY METHOD 06/20/2025 8:20 PM EDT [facility] Basophils %, Body fluid 0 % LAB HEMATOLOGY METHOD 06/20/2025 8:20 PM EDT [facility] Body Fluid Structure of right pleural cavity / Unknown Non-blood Collection / Unknown 06/20/2025 12:03 PM EDT 06/20/2025 2:44 PM EDT Preeti Andersen APRN LAB BODY FLUIDS AND STOOLS ORDERABLES NO SPECIMEN TYPE/SOURCE Final Result [facility] [address] [facility] [place] [facility] [place] [address] * Body fluid, cytospin, pathologist interpretation (06/20/2025 11:59 AM EDT) Specimen Type Body Fluid LAB HEMATOLOGY METHOD 06/21/2025 4:36 PM EDT [facility] Specimen Source, Body Fluid Peritoneal Fluid LAB HEMATOLOGY METHOD 06/21/2025 4:36 PM EDT [facility] Clinical Diagnosis, Body Fluid Ascites LAB HEMATOLOGY METHOD 06/21/2025 4:36 PM EDT [facility] Interpretation , Body Fluid No evidence of malignancy Chronic inflammatory cells Lymphocytosis Reactive mesothelial cells Moderate blood 06/21/2025 4:36 PM EDT [facility] Pathologist Signature, Body Fluid 06/21/2025 4:36 PM EDT [facility] Comment:Reviewed by: Kadei dobbs MD LAB CP ASR DISCLAIMER No 06/21/2025 4:36 PM EDT [facility] Body Fluid Peritoneal fluid / Unknown Non-blood Collection / Unknown 06/20/2025 11:59 AM EDT 06/20/2025 2:04 PM EDT Preeti Andersen APRN LAB BODY FLUIDS AND STO OLS ORDERABLES Final Result Performing Organization Address [facility] Co de Phone Number [facility] [address] [place] [address] * Protein - Ascites (06/20/2025 11:59 AM EDT) Total Protein, Fluid 0.7 g/dL 06/20/2025 4:25 PM EDT [facility] Peritoneal Fluid Peritoneal cavity structure / Unknown Non-blood Collection / Unknown 06/20/2025 11:59 AM EDT 06/20/2025 2:42 PM EDT Narrative [facility] - 06/20/2025 4:25 PM EDT This test was developed and its performance characteristics determined by [facility]. The U.S. Food and Drug Administration has not approved or cleared this test. However, FDA clearance or approval is not currently required for clinical use. The results are not intended to be used as the sole means for clinical diagnosis or patient management decisions. Preeti Andersen APRN LAB BODY FLUIDS AND STO OLS ORDERABLES Final Result Performing Organization Address [facility]/ZIP Co de Phone Number [facility] [address] [place] [address] * Albumin - Ascites (06/20/2025 11:59 AM EDT) Albumin, Peritoneal Fluid 0.4 g/dL 06/20/2025 4:25 PM EDT [facility] Peritoneal Fluid Peritoneal cavity structure / Unknown Non-blood Collection / Unknown 06/20/2025 11:59 AM EDT 06/20/2025 2:42 PM EDT Narrative [facility] - 06/20/2025 4:25 PM EDT REPORTING RESULTS Reference Values: No established reference interval. Results should be interpreted in comparison to the concentration in blood and in conjunction with the clinical context. This test was developed and its performance characteristics determined by [facility]. The U.S. Food and Drug Administration has not approved or cleared this test; however, FDA clearance or approval is not currently required for clinical use. The results are not intended to be used as the sole means for clinical diagnosis or patient management decisions. Preeti Andersen SAMPLE HAND LAB BODY FLUIDS AND STO OLS ORDERABLES Final Result [facility] [address] [place] [address] * Body Fluid Cell Count With Diff - Ascites (06/20/2025 11:59 AM EDT) Color, Body fluid [place] LAB HEMATOLOGY METHOD 06/20/2025 8:13 PM EDT [facility] Comment:Previously prelim ve rified as Red on 06/20/2025 at 1944 EDT. Appearance, Body fluid Clear LAB HEMATOLOGY METHOD 06/20/2025 8:13 PM EDT [facility] Comment:Previously prelim ve rified as Cloudy on 06/20/2025 at 1944 EDT. Volume, Body fluid 15.0 cc LAB HEMATOLOGY METHOD 06/20/2025 8:13 PM EDT [facility] Comment:Previously prelim ve rified as 5.8 cc on 06/20/2025 at 1944 EDT. Fluid Container Specimen received in miscellaneous container LAB HEMATOLOGY METHOD 06/20/2025 8:13 PM EDT [facility] Comment:Corrected result: Pr eviously reported as Tube 2 on 06/20/2025 at 1944 EDT. Red Blood Cell Count, Body fluid 13,000 uL LAB HEMATOLOGY METHOD 06/20/2025 8:13 PM EDT [facility] Total Nucleated Cell Count, Body fluid 164 uL LAB HEMATOLOGY METHOD 06/20/2025 8:13 PM EDT [facility] Neutrophils %, Body fluid 0 % LAB HEMATOLOGY METHOD 06/20/2025 8:13 PM EDT [facility] Lymphocytes %, Body fluid 91 % LAB HEMATOLOGY METHOD 06/20/2025 8:13 PM EDT [facility] Monocytes/Macr ophages %, Body fluid 9 % LAB HEMATOLOGY METHOD 06/20/2025 8:13 PM EDT [facility] Eosinophils %, Body fluid 0 % LAB HEMATOLOGY METHOD 06/20/2025 8:13 PM EDT [facility] Lining/Mesothe lial Cells %, Body fluid 0 % LAB HEMATOLOGY METHOD 06/20/2025 8:13 PM EDT [facility] Neutrophils Absolute (PMN), Body fluid 0 uL LAB HEMATOLOGY METHOD 06/20/2025 8:13 PM EDT [facility] Lymphocytes Absolute, Body fluid 149 uL LAB HEMATOLOGY METHOD 06/20/2025 8:13 PM EDT [facility] Monocytes/Macr ophages Absolute, Body fluid 15 uL LAB HEMATOLOGY METHOD 06/20/2025 8:13 PM EDT [facility] Eosinophils Absolute, Body fluid 0 uL LAB HEMATOLOGY METHOD 06/20/2025 8:13 PM EDT [facility] Basophils Absolute, Body fluid 0 uL LAB HEMATOLOGY METHOD 06/20/2025 8:13 PM EDT [facility] Lining/Mesothe lial Cells Absolute, Body fluid 0 uL LAB HEMATOLOGY METHOD 06/20/2025 8:13 PM EDT [facility] Basophils %, Body fluid 0 % LAB HEMATOLOGY METHOD 06/20/2025 8:13 PM EDT [facility] Body Fluid Peritoneal fluid / Unknown Non-blood Collection / Unknown 06/20/2025 11:59 AM EDT 06/20/2025 2:04 PM EDT us Preeti Andersen SAMPLE HAND LAB BODY FLUIDS AND STOOLS ORDERABLES NO SPECIMEN TYPE/SOURCE Final Result [facility] [address] [place] [address] documented in this encounter Visit Diagnoses Diagnosis [...] documented as of this encounter Care Teams Knuckler Relationship Specialty Start Date End Date Alvarez Zimmer MD [address] [place] [address] PCP - General Family Medicine 12/07/24 Lea Fernando [address] [facility] [address] [place] [address] [facility] Endocrinology 08/29/24 Rachel Ray, SAMPLE HAND [address] [facility] [address] [place] [address] Nurse Practitioner Gastroenterology 09/24/24 Tamera Isabel LPN VALUE-BASED TRANSFORMATION PROGRAM Licensed Practical Nurse 05/29/25 documented as of this encounter
--- OUTSIDE RECORDS SUMMARY | 2025-06-20 13:04 | XMS_ITS | Encounter Summary ---
Author Organization Healthcare Address [address] [place] [address] Care Team Providers Care Asset Coordinator Name Role Phone Lea Fernando Unavailable [phone] Rachel Ray NEUROLOGIST Unavailable [phone] Alvarez Zimmer MD Primary Care Provider [phone] Tamera Isabel LPN Unavailable Unavailabl e Encounter Details Date Type Department Care Team (Latest Contact Info) Description 06/20/2025 1:04 PM EDT - 06/20/2025 11:59 PM EDT Hospital Encounter [facility] [address] [place] [address] Arrived Discharge Disposition: Home or Self Care Social [...] often do you attend chur ch or mosque services? Patient unable to answer 01/10/2025 Do [...] any time in the past 12 m [facility], were you homeless or living in a senior care (including now)? No 03/06/2025 Humiliation, Afraid, Rape, [...] How often do you attend chur or mosque services? Never 05/29/2025 Do you belong to [...] drinks on one occasion? Never 06/05/2025 [facility] - [...] any time in the past 12 m [facility], were you homeless or living in a senior care (including now)? No 05/29/2025 CAGE ASSESSMENT Answer [...] drink first t kennedy in the morning (EYE-MAJOR LEAGUE BASEBALL PLAYER) to steady your nerves or to get [...] 1 03/01/2025 ergocalciferol (Vitamin D-2) 1.25 MG (11687 UT) capsuleIndications: Vitamin D deficiency Take 1 [...] Appointment [facility] [address] [place] [address] 06/27/2025 10:30 AM EDT Appointment [facility] [address] [place] [address] 07/04/2025 10:30 AM EDT Appointment [facility] [address] [place] [address] 07/04/2025 11:30 AM EDT Appointment [facility] [address] [place] [address] 07/09/2025 2:40 PM EDT Office Visit Professional [facility] [place] [facility] [address] [facility], [address] [place] [address] Ar Dominique MD [address] [facility] [address] [place] [address] 07/11/2025 10:30 AM EDT Appointment [facility] [address] [place] [address] 07/11/2025 11:30 AM EDT Appointment [facility] [address] [place] [address] 07/18/2025 10:30 AM EDT Appointment [facility] [address] [place] [address] 07/18/2025 11:30 AM EDT Appointment [facility] [address] [place] [address] 07/25/2025 10:30 AM EDT Appointment [facility] [address] [place], [place] [address] 07/25/2025 11:30 AM EDT Appointment [facility] [address] [place] [address] 07/31/2025 9:00 AM EDT Office Visit [facility] [address] [place] [address] Alvarez Zimmer MD [address] [place] [address] 08/20/2025 9:30 AM EDT Clinical Support [facility] [place] [address] [place] [address] 08/20/2025 10:30 AM EDT Social Work [facility] [address] [place] [address] [place] [address] 08/20/2025 11:00 AM EDT Office Visit [facility] [address] [place] [address] Jude Duque MD [address] [place] [address] 10/30/2025 1:20 PM EST Office Visit [facility] Endocrinology [address] [place] [address] TiffanieSharif S, DPM [address] [place] [address] documented as of this encounter [...] documented as of this encounter Care Teams Asset Coordinator Relationship Specialty Start Date End Date Alvarez Zimmer MD [address] [place] [address] PCP - General Family Medicine 12/07/24 Lea Fernando [address] [facility] [address] [place] [address] Heater Worker Endocrinology 08/29/24 Rachel Ray APRN [address] [place] [address] Nurse Practitioner Gastroenterology 09/24/24 Tamera Isabel LPN VALUE-BASED TRANSFORMATION PROGRAM Licensed Practical Nurse 05/29/25 documented as of this encounter
[2025-06-23] VITALS (13 sets, daily range): BP systolic 117–134; BP diastolic 56–67; PULSE 67–84; RESP 20; TEMP 36.6–36.8; O2SAT 96–100; BMI 30.7
--- OUTSIDE RECORDS SUMMARY | 2025-06-23 17:42 | XMS_ITS | Encounter Summary ---
Author Organization Healthcare Address [address] [place] [address] Care Team Providers Care Vacuum Metalizing Supervisor Name Role Phone Lea Fernando Unavailable [phone] Rachel Ray SOCIAL WELFARE CLERK Unavailable [phone] Alvarez Zimmer MD Primary Care Provider [phone] Encounter Details Date Type Department Care Team (Latest Contact Info) Description 05/16/2025 Travel Social History Tobacco Use Types Packs/Day Years [...] often do you attend chur ch or jainism services? Patient unable to answer 01/10/2025 Do you belong to any clubs o r organizations such as bahai groups, unions, fraternal or athletic groups, or [...] Recorded Patient Health Questionnaire-2 Score 1 05/07/2025 [facility] - Occupational [...] place to sleep or slept in a fdc (including now)? Yes 08/29/2024 PHQ-9 Answer Date [...] any time in the past 12 m [facility], were you homeless or living in a fdc (including now)? No 03/06/2025 CAGE ASSESSMENT Answer [...] drink first t kennedy in the morning (EYE-LICENSED PRACTICAL NURSE INSTRUCTOR) to steady your nerves or to get [...] on file documented as of this encounter Plan of Treatment Upcoming Encounters Date Type Department Care Team ([facility] st Contact Info) Description 06/27/2025 9:30 AM EDT Appointment [facility] [address] [place] [address] 06/27/2025 10:30 AM EDT Appointment [facility] [address] [place] [address] 07/04/2025 10:30 AM EDT Appointment [facility] [address] [place] [address] 07/04/2025 11:30 AM EDT Appointment [facility] [address] [place] [address] 07/09/2025 2:40 PM EDT Office Visit [facility] [address], [address] [place] [address] Ar Dominique MD [address] [place] [address] 07/11/2025 10:30 AM EDT Appointment [facility] [address] [place] [address] 07/11/2025 11:30 AM EDT Appointment [facility] [address] [place] [address] 07/18/2025 10:30 AM EDT Appointment [facility] [address] [place] [address] 07/18/2025 11:30 AM EDT Appointment [facility] [address] [place] [address] 07/25/2025 10:30 AM EDT Appointment [facility] [address] [place] [address] 07/25/2025 11:30 AM EDT Appointment [facility] [address] [place] [address] 07/31/2025 9:00 AM EDT Office Visit [facility] [address] [place] [address] Alvarez Zimmer MD [address] [place] [address] 08/20/2025 9:30 AM EDT Clinical Support [facility] [place] [address] [place] [address] 08/20/2025 10:30 AM EDT Social Work [facility] [place] [address] [place] [address] Deysi Ortega [place], [place] [id number] 08/20/2025 11:00 AM EDT Office Visit [facility] [place] [address] [place] [address] Jude Duque MD [address] [place] [address] 10/30/2025 1:20 PM EST Office Visit [facility] Endocrinology [address] [place] [address] Sharif Moreno, DPNicole [address] [place] [address] documented as of this encounter [...] as of this encounter Care Teams Vacuum Metalizing Supervisor Relationship Specialty Start Date End Date Alvarez Zimmer MD [address] [place] [address] PCP - General Family Medicine 12/07/24 Lea Fernando [address] [place] [address] Plastics Design Engineer Endocrinology 08/29/24 Rachel Ray, SOCIAL WELFARE CLERK [address] [place] [address] Nurse Practitioner Gastroenterology 09/24/24 documented as of this encounter
--- OUTSIDE RECORDS SUMMARY | 2025-06-23 17:42 | XMS_ITS | Encounter Summary ---
Author Organization Healthcare Address [address] [place] [address] Care Team Providers Care Gristmiller Name Role Phone Lea Fernando Unavailable [phone] Rachel Ray EYELET MACHINE OPERATOR Unavailable [phone] Alvarez Zimmer MD Primary Care Provider [phone] Reason for Visit * Reason Comments Med Refill Encounter Details Date Type Department Care Team (Late st Contact Info) Description 05/14/2025 Refill [facility] [address] [place] [address] Kacie Buckley, EYELET MACHINE OPERATOR [address] [place] [address] Hypomagnesemia Social History Tobacco Use Types Packs/Day Years [...] you attend [facility] or rastafarian services? Patient unable to answer 01/10/2025 Do you belong to any clubs o r organizations such as faith groups, unions, fraternal or athletic groups, or [...] Recorded Patient Health Questionnaire-2 Score 1 05/07/2025 [facility] - Occupational [...] or slept in a fpc (including now)? Yes 08/29/2024 PHQ-9 Answer Date [...] any time in the past 12 m [facility], were you homeless or living in a fpc (including now)? No 03/06/2025 CAGE ASSESSMENT Answer [...] drink first t kennedy in the morning (EYE-SENIOR MANUFACTURING TEST ENGINEER) to steady your nerves or to [...] as of this encounter Miscellaneous Notes * Telephone Encounter - Sheela Rust PharmD - 05/17/2025 10:19 AM EDT 1 medication(s) has been denied per protocol due to: Refill requested too soon. 1 year of refills sent 04/01/25. documented in this encounter Plan of Treatment Upcoming Encounters Date Type Department Care Team ([facility] Contact Info) Description 06/27/2025 9:30 AM EDT Appointment [facility] Inter[facility] Radiology [address] [place] [address] 06/27/2025 10:30 AM EDT Appointment [facility]iology [address] [place] [address] 07/04/2025 10:30 AM EDT Appointment [facility] [address] [place] [address] 07/04/2025 11:30 AM EDT Appointment [facility]iology [address] [place] [address] 07/09/2025 2:40 PM EDT Office Visit [facility] [address] [facility], [address] [place] [address] Ar Dominique MD [address] [facility] [address] [place] [address] 07/11/2025 10:30 AM EDT Appointment [facility] [address] [place] [address] 07/11/2025 11:30 AM EDT Appointment [facility] [address] [place] [address] 07/18/2025 10:30 AM EDT Appointment [facility] [address] [place] [address] 07/18/2025 11:30 AM EDT Appointment [facility] [address] [place] [address] 07/25/2025 10:30 AM EDT Appointment [facility] [address] [place] [address] 07/25/2025 11:30 AM EDT Appointment [facility] [address] [place] [address] 07/31/2025 9:00 AM EDT Office Visit [facility] [address] [place] [address] Alvarez Zimmer MD [address] [place] [address] 08/20/2025 9:30 AM EDT Clinical Support [facility] [place] [address] [place] [address] 08/20/2025 10:30 AM EDT Social Work [facility] [address] [place] [address] Deysi Ortega [place], [place] [id number] 08/20/2025 11:00 AM EDT Office Visit [facility] [place] [address] [place] [address] Jude Duque MD [address] [place] [address] 10/30/2025 1:20 PM EST Office Visit [facility] Endocrinology [address] [place] [address] Sharif Moreno, DPNicole [address] [place] [address] documented as of this encounter Visit Diagnoses Diagnosis Hypomagnesemia Disorders of magnesium metabolism documented in this encounter Additional Health Concerns Assessment Noted Time PHQ-9 Depression Total Score: 0 03/06/20 1:21 PM EDT A fall risk assessment has been complete d for the patient 05/07/2025 9:12 AM EDT A Body Mass Index follow-up plan has been documented for the patient 05/07/2025 11:34 AM EDT documented as of this encounter Care Teams Gristmiller Relationship Specialty Start Date End Date Alvarez Zimmer MD [address] [place] [address] PCP - General Family Medicine 12/07/24 Lea Fernando [address] [place] [address] Professor Of Education Endocrinology 08/29/24 Rachel Ray APRN [address] [place] [address] Nurse Practitioner Gastroenterology 09/24/24 documented as of this encounter
--- OUTSIDE RECORDS SUMMARY | 2025-06-23 17:42 | XMS_ITS | Encounter Summary ---
Author Organization [facility] Address [address] [place] [address] Care Team Providers Care Job Placement Counselor Name Role Phone Lea Fernando Unavailable [phone] Rachel Ray EMR TRAINER Unavailable [phone] Alvarez Zimmer MD Primary Care Provider [phone] Tamera Isabel LPN Unavailable Unavailabl e Encounter Details Date Type Department Care Team (Late st Contact Info) Description 05/16/2025 Telephone [facility] [address] [place] [address] [place] [address] Social History Tobacco Use Types Packs/Day Years [...] do you attend chur or protestant services? Patient unable to answer [...] time in the past 12 m [facility], were you homeless or living [...] more drinks on one occasion? Never 06/05/2025 [facility]ational Stress Questionnaire Answer Date [...] time in the past 12 m [facility], were you homeless or living [...] drink first t kennedy in the morning (EYE-REEL STRIPPER) to steady your nerves or to get [...] as of this encounter Functional Status * AUDIT-C Score [...] 06/05/2025 2:44 PM EDT Anisha Marino * Over the past 2 weeks, how often have you been bothered by any of the following problems? Question Answer Date of Assessment Author Little interest or pleasure in doing things Not at all 06/11/2025 10:59 AM EDSuhail Doherty Feeling down, depressed, or hopeless Not at all 06/11/2025 10:59 AM EDT Suhail Stephen Patient Health Questionnaire -2 Score 0 06/11/2025 10:59 AM EDT Suhail Stephen * Question Answer Date of Assessment Author Trouble falling or staying asleep, or sleeping too much Several days 06/11/2025 10:59 AM EDSuhail Doherty Feeling tired or having kamala le energy Several days 06/11/2025 10:59 AM Suhail Josue Poor appetite or overeating Several days 06/11/2025 10 :59 AM EDSuhail Doherty A Feeling bad about yourself - or that you are a failure or have let yourself or your family down Several days 06/11/2025 10:59 AM EDT Suhail Ramirez Trouble concentrating on thi ngs, such as reading the newspaper or watching television Several days 06/11/2025 10:59 AM EDSuhail Doherty Moving or speaking so slowly that other people could have noticed? Or the opposite - being so fidgety or restless that you have been moving around a lot more than usual. Several days 06/11/2025 10:59 AM EDSuhail Doherty Thoughts that you would be better off or hurting yourself in some way Not at all 06/11/2025 10:59 AM EDT Suhail Stephen Patient Health Questionnaire -9 Score 6 06/11/2025 10:59 AM EDT Suhail Stephen * Calculated C-SSRS Risk Score (Lifetime/Recent) Answer Date of Assessment Author No Risk Indicated 06/05/2025 2:53 PM EDT Gissel Downey * If you checked off any problems [...] Author Somewhat difficult 06/11/2025 10:59 AM EDT Suahil Garcia * Question Answer Date of Assessment Author 1. Wish to be (Past 1 Month) No 025 2:53 PM EDT Gissel Marino 2. Non-Specific Active Suici liz Thoughts (Past 1 Month) No 06/05/2025 2:53 PM EDT Gissel Marino 6. Suicidal Behavior (Lifetime) No 2:53 PM EDT Gissel Marino documented as of this encounter Plan of Treatment Upcoming Encounters Date Type Department Care Team (Late st Contact Info) Description 06/27/2025 9:30 AM EDT Appointment [facility] Inter[facility] Radiology [address] [place] [address] 06/27/2025 10:30 AM EDT Appointment [facility]iology [address] [place] [address] 07/04/2025 10:30 AM EDT Appointment [facility] [address] [place] [address] 07/04/2025 11:30 AM EDT Appointment [facility] Radiology [address] [place] [address] 07/09/2025 2:40 PM EDT Office Visit [facility] [address] [facility], [address] [place] [address] Ar Dominique MD [address] [place] [address] 07/11/2025 10:30 AM EDT Appointment [facility] [address] [place] [address] 07/11/2025 11:30 AM EDT Appointment [facility] [address] [place] [address] 07/18/2025 10:30 AM EDT Appointment [facility] [address] [place] [address] 07/18/2025 11:30 AM EDT Appointment [facility] [address] [place] [address] 07/25/2025 10:30 AM EDT Appointment [facility] [address] [place] [address] 07/25/2025 11:30 AM EDT Appointment [facility] [address] [place] [address] 07/31/2025 9:00 AM EDT Office Visit [facility] [address] [place] [address] Alvarez Zimmer MD [address] [place] [address] 08/20/2025 9:30 AM EDT Clinical Support [facility] [place] [address] [facility] [address] [place] [address] 08/20/2025 10:30 AM EDT Social Work [facility] [place] [address] [facility] [address] [place] [address] Deysi Ortega [place], [place] [id number] 08/20/2025 11:00 AM EDT Office Visit [facility] [address] [place] [address] Jude Duque MD [address] [place] [address] 10/30/2025 1:20 PM EST Office Visit [facility] Endocrinology [address] [place] [address] Sharif Moreno DPM [address] [place] [address] documented as of this encounter [...] documented as of this encounter Care Teams Job Placement Counselor Relationship Specialty Start Date End Date Alvarez Zimmer MD [address] [place] [address] PCP - General Family Medicine 12/07/24 Lea Fernando [address] [place] [address] Videographer Endocrinology 08/29/24 Rachel Ray, EMR TRAINER [address] [place] [address] Nurse Practitioner Gastroenterology 09/24/24 Tamera Isabel, MG VALUE-BASED TRANSFORMATION PROGRAM Licensed Practical Nurse 05/29/25 documented as of this encounter
--- NOTE | 2025-06-23 17:43 | XR_ITS ---
PROCEDURE INFORMATION: Exam: XR Chest Exam date and time: 06/23/2025 5:56 PM Age: 64 years old Clinical indication: Other: Chest pain; Additional info: Cp TECHNIQUE: Imaging protocol: Radiologic exam of the chest. Views: 1 view. COMPARISON: No relevant prior studies available. FINDINGS: Lungs: No consolidation. Minimal strandy bibasilar opacities. Minimal retrocardiac opacities. Pleural spaces: Small right pleural effusion. Heart/Mediastinum: No cardiomegaly. Bones/joints: No acute findings. IMPRESSION: 1. Small right pleural effusion. Minimal right basilar atelectasis. 2. Minimal retrocardiac opacities, which may represent atelectasis or aspiration/pneumonia in the acute setting.
--- NOTE | 2025-06-23 17:43 | ECG_ITS ---
APPROVED REPORT Exam: Resting ECG HR:76 bpm ECG Measurements Heart Rate 76 AXES GA 96 P 75 QRSd 89 QRS -25 QT 416 T 31 QTc 446 Conclusion SINUS RHYTHM WITH SINUS ARRHYTHMIA WITH SHORT GA INTERVAL BORDERLINE LEFT AXIS DEVIATION [QRS AXIS < -20] LOW QRS VOLTAGE IN PRECORDIAL LEADS [QRS DEFLECTION < 1.0 mV IN CHEST LEADS] BORDERLINE ECG UNCONFIRMED REPORT Electronically signed by : Irvin Rodriguez, 06/23/2025 23:34:37
--- NOTE | 2025-06-23 17:43 | CT_ITS ---
PROCEDURE INFORMATION: Exam: CT Abdomen And Pelvis Without Contrast Exam date and time: 06/23/2025 6:38 PM Age: 64 years old Clinical indication: Abdominal pain; Additional info: Luq abd pain TECHNIQUE: Imaging protocol: Computed tomography of the abdomen and pelvis without contrast. Radiation optimization: All CT scans at this facility use at least one of these dose optimization techniques: automated exposure control; mA and/or kV adjustment per patient size (includes targeted exams where dose is matched to clinical indication); or iterative reconstruction. COMPARISON: CR XR CHEST PORTABLE 06/23/2025 5:56 PM FINDINGS: Lungs: Mild atelectatic changes within the right lung. Pleural spaces: Small to moderate right pleural effusion. Liver: Cirrhotic morphology. Hepatomegaly. No mass. Gallbladder and biliary ducts: Normal. No calcified stones. No ductal dilation. Pancreas: Normal. No ductal dilation. Spleen: Enlarged spleen measuring 15.3 cm in oblique coronal dimension. Adrenal glands: Normal. No mass. Kidneys and ureters: Normal. No hydronephrosis. Stomach and bowel: Nondistended proximal colon containing air-fluid levels. No obstruction. No mucosal thickening. Appendix: No evidence of appendicitis. Intraperitoneal space: Small to moderate ascites and mesenteric edema. No free air. No significant fluid collection. Vasculature: Recannulized paraumbilical vein. Gastric and perisplenic varices. No abdominal aortic aneurysm. Lymph nodes: Shotty mesenteric lymph nodes. Urinary bladder: Unremarkable as visualized. Reproductive: Hysterectomy. Bones/joints: Degenerative changes. No acute fracture. Soft tissues: Left sacral neurostimulator device implanted within the right lower back subcutaneous soft tissues. Small umbilical hernia containing ascites. IMPRESSION: 1. Cirrhosis. Secondary findings of portal hypertension to include splenomegaly and portosystemic varices. Small to moderate ascites and mesenteric edema. 2. Nondistended proximal colon containing air-fluid levels, findings which may suggest a diarrheal state. 3. Small to moderate right pleural effusion.
--- OUTSIDE RECORDS SUMMARY | 2025-06-23 17:43 | XMS_ITS | Encounter Summary ---
Author Organization Healthcare Address [address] [place] [address] Care Team Providers Care Wirer Maintenance Name Role Phone Lea Fernando Unavailable [phone] Rachel Ray NEUROCRITICAL CARE PHYSICIAN Unavailable [phone] Alvarez Zimmer MD Primary Care Provider [phone] Encounter Details Date Type Department Care Team (Latest Contact Info) Description 05/18/2025 Travel Social History Tobacco Use Types Packs/Day [...] often do you attend chur ch or scientologist services? Patient unable to answer 01/10/2025 Do you belong to any clubs o r organizations such as latter-day groups, unions, fraternal or athletic groups, or [...] Recorded Patient Health Questionnaire-2 Score 1 05/07/2025 [facility] - Occupational [...] drink first t kennedy in the morning (EYE-CEMENT BREAKER) to steady your nerves or to get [...] Upcoming Encounters Date Type Department Care Team ([facility] st Contact Info) Description 06/27/2025 9:30 AM EDT Appointment [facility] Interventional Radiology [address] [place] [address] 06/27/2025 10:30 AM EDT Appointment [facility] Inter[facility] Radiology [address] [place] [address] 07/04/2025 10:30 AM EDT Appointment [facility] [address] [place] [address] 07/04/2025 11:30 AM EDT Appointment [facility] [address] [place] [address] 07/09/2025 2:40 PM EDT Office Visit [facility] [address] [facility], [address] [place] [address] Ar Dominique MD [address] [facility] [address] [place] [address] 07/11/2025 10:30 AM EDT Appointment [facility] [address] [place] [address] 07/11/2025 11:30 AM EDT Appointment [facility] [address] [place] [address] 07/18/2025 10:30 AM EDT Appointment [facility] [address] [place] [address] 07/18/2025 11:30 AM EDT Appointment [facility] [address] [place] [address] 07/25/2025 10:30 AM EDT Appointment [facility] [address] [place] [address] 07/25/2025 11:30 AM EDT Appointment [facility] [address] [place] [address] 07/31/2025 9:00 AM EDT Office Visit [facility] [address] [place] [address] Alvarez Zimmer MD [address] [place] [address] 08/20/2025 9:30 AM EDT Clinical Support [facility] [place] [address] [place] [address] 08/20/2025 10:30 AM EDT Social Work [facility] [place] [address] [place] [address] Deysi Ortega [place], [place] [phone] 08/20/2025 11:00 AM EDT Office Visit [facility] [place] [address] [place] [address] Jude Duque MD [address] [place] [address] 10/30/2025 1:20 PM EST Office Visit [facility] Endocrinology [address] [place] [address] Sharif Moreno, DPNicole [address] [place] [address] documented as of this encounter [...] documented as of this encounter Care Teams Wirer Maintenance Relationship Specialty Start Date End Date Alvarez Zmimer MD [address] [place] [address] PCP - General Family Medicine 12/07/24 Lea Fernando [address] [place] [address] Fur Liner Endocrinology 08/29/24 Rachel Ray, NEUROCRITICAL CARE PHYSICIAN [address] [place] [address] Nurse Practitioner Gastroenterology 09/24/24 documented as of this encounter
--- OUTSIDE RECORDS SUMMARY | 2025-06-23 17:43 | XMS_ITS | Encounter Summary ---
Author Organization [facility] Address [address] [place] [address] Care Team Providers Care Health Safety Coordinator Name Role Phone Wilma Howard Ambar RUSH Primary Care Provider [phone] Lea Fernando Unavailable [phone] Rachel Ray TOBACCO SAMPLE PULLER Unavailable [phone] Taina Lyles TOBACCO SAMPLE PULLER Primary Care Provider Monique Tapia DENTIST PRIVATE PRACTICE Unavailable Unavailable Alvarez Zimmer MD Primary Care Provider [phone] Shaniqua Trevino DENTIST PRIVATE PRACTICE Unavailable Unavailable Tamera Isabel DENTIST PRIVATE PRACTICE Unavailable Unavailabl e Reason for Visit * Reason Onset Date Comments Med Refill Med Refill 08/11/2021 Encounter Details Date Type Department Care Team (Late st Contact Info) Description 07/28/2021 Refill eMrissa Valencia [facility] Endocrinology [address] [place] [address] Deysi Antonio MD [address] [facility] [address] [place] [address] Social History Tobacco Use Types Packs/Day Years Used Date Smoking Tobacco: Never Smokeless Tobacco: Never Alcohol Use Standard Drinks/Week Comments Not Currently 0 (1 standard drink = 0.6 oz pur e alcohol) Comments Unknown Sex and Gender Information Value Date Recorded Sex Assigned at Female 06/22/2022 9:33 AM EDT Legal Sex Female 8:01 PM EDT Gender Identity Female 06/22/2022 9:33 AM EDT Sexual Orientation Straight 06/22/2022 9: 33 AM EDT COVID-19 Exposure Response Date Recorded In the last month, have you been in contact with someone who was confirmed or suspected to have Coronavirus / COVID-19? No / Unsure 07/17/2021 12:51 PM EDT documented as of this encounter Miscellaneous Notes * Telephone Encounter - Antonia Wallace - 08/11/2021 11:44 AM EDT Medication Refill Request Medication Name & Dosage: Test Strips Preferred Pharmacy & Location: [facility] Days of medication remaining (if under 3 days please aida as urgent): Pt is out Best contact number and optimal time of day to reach caller: [phone] Additional comments/information from caller: Note: Please do not reply to this message. Follow-up communication and further actions as a result of this message need to be communicated with the patient directly, if the patient is not active onMyChart. If the patient is active on MyChart, they will receive notification of the communication/outcome via Headplayhart. documented in this encounter Plan of Treatment Upcoming Encounters Date Type Department Care Team ([facility] st Contact Info) Description 06/27/2025 9:30 AM EDT Appointment [facility] Inter[facility] Radiology [address] [place] [address] 06/27/2025 10:30 AM EDT Appointment [facility] [address] [place] [address] 07/04/2025 10:30 AM EDT Appointment [facility] [address] [place] [address] 07/04/2025 11:30 AM EDT Appointment [facility] Inter[facility] Radiology [address] [place] [address] 07/09/2025 2:40 PM EDT Office Visit [facility] Bone & Mineral Metabolism [address] [facility], [address] [place] [address] Ar Dominique MD [address] [facility] [address] [place] [address] 07/11/2025 10:30 AM EDT Appointment [facility] Inter[facility] Radiology [address] [place] [address] 07/11/2025 11:30 AM EDT Appointment [facility] [address] [place] [address] 07/18/2025 10:30 AM EDT Appointment [facility] [address] [place] [address] 07/18/2025 11:30 AM EDT Appointment [facility] [address] [place] [address] 07/25/2025 10:30 AM EDT Appointment [facility]iology [address] [place] [address] 07/25/2025 11:30 AM EDT Appointment [facility] [address] [place] [address] 07/31/2025 9:00 AM EDT Office Visit [address] [address] Alvarez Zimmer MD [address] [place] [address] 08/20/2025 9:30 AM EDT Clinical Support [facility] [place] [address] [place] [address] 08/20/2025 10:30 AM EDT Social Work [facility] [address] [place] [address] [place] [address] 08/20/2025 11:00 AM EDT Office Visit [facility] [place] [address] [place] [address] Jude Duque MD [address] [place] [address] 10/30/2025 1:20 PM EST [facility] [address] [place] [address] Sharif Moreno, DPM [address] [place] [address] documented as of this encounter Visit Diagnoses Not on filedocumented in this encounter Additional Health Concerns Infection Onset Date Last Indicated Resolved Time COVID-19 Rule-Out 10/14/2024 10/14/2024 10/14/2024 6:33 AM EST Respiratory Rule-Out 01/08/2025 01/08/2025 025 7:29 PM EST Assessment Noted Time A fall risk assessment has been complete d for the patient 07/17/2021 1:24 PM EDT documented as of this encounter Care Teams Health Safety Coordinator Relationship Specialty Start Date End Date Wilma Howard APRN [address] [place] [address] [place] [address] PCP - General 04/03/21 09/30/24 Taina Lyles APRN [address] [place] [address] [place] [address] PCP - General 10/01/24 12/06/24 Alvarez Zimmer MD [address] [place] [address] PCP - General Family Medicine 12/07/24 Lea Fernando [address] [place] [address] Instrument Technician Helper Endocrinology 08/29/24 Rachel Ray, ADRI [address] [place] [address] Nurse Practitioner Gastroenterology 09/24/24 Monique Tapia LPN VALUE[employer] [address] TCM Nurse 11/28/24 12/28/24 Shaniqua Trevino LPN TCM Nurse 01/15/25 02/14/25 Tamera Isabel LPN VALUE-BASED TRANSFORMATION PROGRAM Licensed Practical Nurse 05/29/25 documented as of this encounter
--- OUTSIDE RECORDS SUMMARY | 2025-06-23 17:43 | XMS_ITS | Encounter Summary ---
Author Organization [facility] Address [address] [place] [address] Care Team Providers Care Field Software Engineer Name Role Phone Lea Fernando Unavailable [phone] Rachel Ray COMMODITY INDUSTRY ANALYST Unavailable [phone] Alvarez Zimmer MD Primary Care Provider [phone] Tamera Isabel LPN Unavailable Unavailabl e Encounter Details Date Type Department Care Team (Late st Contact Info) Description 05/16/2025 [facility] [address] [place] [address] [place] [address] Social History Tobacco Use Types Packs/Day Years [...] How often do you attend chur or jehovah's witness services? Patient unable to answer 01/10/2025 Do [...] any time in the past 12 m [facility], were you homeless or living in a group home (including now)? No 03/06/2025 Humiliation, Afraid, [...] How often do you attend chur or jehovah's witness services? Never 05/29/2025 Do you belong to [...] drinks on one occasion? Never 06/05/2025 [facility] Occupational Stress Questionnaire Answer Date [...] any time in the past 12 m [facility], were you homeless or living [...] drink first t kennedy in the morning (EYE-MAKE UP GIRL) to steady your nerves or to get [...] difficult 06/11/2025 10:59 AM EDT Suhail Garcia * Question Answer Date of Assessment [...] Appointment [facility] Inter[facility] Radiology [address] [place] [address] 06/27/2025 10:30 AM EDT Appointment [facility]iology [address] [place] [address] 07/04/2025 10:30 AM EDT Appointment [facility]iology [address] [place] [address] 07/04/2025 11:30 AM EDT Appointment [facility] Radiology [address] [place] [address] 07/09/2025 2:40 PM EDT Office Visit [facility] Bone & Mineral Metabolism [address] [facility], [address] [place] [address] Ar Dominique MD [address] [place] [address] 07/11/2025 10:30 AM EDT Appointment [facility]iology [address] [place] [address] 07/11/2025 11:30 AM EDT Appointment [facility] [address] [place] [address] 07/18/2025 10:30 AM EDT Appointment [facility] [address] [place] [address] 07/18/2025 11:30 AM EDT Appointment [facility]iology [address] [place] [address] 07/25/2025 10:30 AM EDT Appointment [facility]iology [address] [place] [address] 07/25/2025 11:30 AM EDT Appointment [facility] Inter[facility] Radiology [address] [place] [address] 07/31/2025 9:00 AM EDT Office Visit [facility] [address] [place] [address] Alvarez Zimmer MD [address] [place] [address] 08/20/2025 9:30 AM EDT Clinical Support [facility] [place] [address] [facility] [address] [place] [phone] 08/20/2025 10:30 AM EDT Social Work [facility] [place] [address] [facility] [address] [place] [phone] Deysi [address] [place], [place] [phone] 08/20/2025 11:00 AM EDT Office Visit [facility] [address] [place] [address] Jude Duque MD [address] [place] [address] 10/30/2025 1:20 PM EST [facility] End[facility]ology [address] [place] [address] Sharif Moreno DPM [address] [place] [address] documented as of this encounter [...] as of this encounter Care Teams Field Software Engineer Relationship Specialty Start Date End Date Alvarez Zimmer MD [address] [place] [address] PCP - General Family Medicine 12/07/24 Lea Fernando [address] [place] [address] Dental Ceramist Helper Endocrinology 08/29/24 Rachel Ray, COMMODITY INDUSTRY ANALYST [address] [place] [address] Nurse Practitioner Gastroenterology 09/24/24 Tamera Isabel, MG VALUE-BASED TRANSFORMATION PROGRAM Licensed Practical Nurse 05/29/25 documented as of this encounter
--- OUTSIDE RECORDS SUMMARY | 2025-06-23 17:43 | XMS_ITS | Encounter Summary ---
Author Organization [employer] ([place], [place], [place], [place]) Address [address] [place] [address] Care Team Providers Care Gripper Attacher Name Role Phone Wilfredolayla Taina Burt APRN Primary Care Provider [phone] Encounter Details Date Type Department Care Team (Late st Contact Info) Description 05/18/2022 Transcribed Document [facility] [place] [address] [place] [address] ProviderWilliam MD [address] [place], [place] [id number] Social History Tobacco Use Types Packs/Day Years Used Date Smoking Tobacco: Never Assessed Food Insecurity Answer Date Recorded Food run out past 12 months Not on file 11/21 Food did not last past 12 months Not on file 12/01/2023 Employment Answer Date Recorded Help finding and keeping a job Not on file 0 12/01/2023 Family and Community Support Answer Rajesh e Recorded Help with Day to Day Activities Not on file 12/01/2023 Feeling Lonely or Isolated Not on file 12/01 Educational Attainment Answer Date Beau rded Speak language other than Pakistani at home Not on file 12/01/2023 Want help with school or training Not on file 12/01/2023 Substance Use Answer Date Recorded Used prescription meds for non-medical reasons N ot on file 12/01/2023 Used illegal drugs past 12 months Not on file 12/01/2023 Comments Unknown Sex and Gender Information Value Date Recorded Sex Assigned at Not on file Legal Sex Female 12:21 PM CDT Gender Identity Not on file Sexual Orientation Not on file COVID-19 Exposure Response Date Recorded In the last 10 days, have yo u been in contact with someone who was confirmed or suspected to have Coronavirus/COVID-19? No / Unsure 07/01/2023 7:20 AM EDT documented as of this encounter Miscellaneous Notes * Cerner Conversion Note - Historical Provider, - 05/18/2022 2:13 PM CDT [place] [address] OPERATIVE REPORT PATIENT IDENTIFICATION: MONIKA ZIMMER (Female - 1960) ACCOUNT / UNIT NUMBER: [id number] / [id number] PRIMARY CARE PHYSICIAN: ERYN PARKINSON APRN [place] [facility] [place] TIME: 05/18/22 0804 DISCHARGE DATE / TIME: DICTATED: 05/18/22 1013 by VOLODYMYR VILLARREAL TRANSCRIBED: 05/18/22 1208 by MAIA IMPORTED: 05/18/22 1214 CC: ERYN PARKINSON APRN; VOLODYMYR VILLARREAL\R\ DATE OF PROCEDURE: 05/18/2022 SURGEON: Volodymyr Villarreal MD PREOPERATIVE DIAGNOSES: Interstitial cystitis, urge urinary incontinence, and overactive bladder. POSTOPERATIVE DIAGNOSES: Glomerulations consistent with interstitial cystitis, morbid obesity. PROCEDURES PERFORMED: 1. Botox injection of bladder 200 international units. 2. Hydrodistention of bladder x2. 3. Urethral dilation. 4. Cystoscopy. 5. Washing. 6. Cystogram. 7. Bilateral retrograde pyelogram. 8. Urethral dilation. 9. Fulguration of Hunner ulcer. 10. Bladder biopsy. 11. Intravesical instillation of DMSO. ANESTHESIA: LMA. HISTORY: Monika Zimmer is a 61-year-old white female with interstitial cystitis and urge urinary incontinence with overactive bladder. We are proceeding with hydrodistention and Botox of the bladder after failing oral therapies. After risks and benefits discussed with the patient, she understands and wished to proceed. DESCRIPTION OF PROCEDURE: The patient was taken to the operating room, placed in dorsal lithotomy position, prepped and draped in the usual sterile fashion. External genitalia normal. Urethra normal. Bladder normal. Increased capillary networks. No masses or lesions. We shot a cystogram and bilateral retrograde pyelogram, which showed normal collecting systems, good drainage. Bladder biopsy was taken, and we saw a Hunner ulcer. We fulgurated. We dilated the urethra from 18- to 24-Urdu, then we took a random bladder biopsy. We injected the bladder with 200 international units of Botox with 31 mL injections, divided throughout the bladder wall. Then, we drained the bladder, instilled DMSO and lidocaine, and the patient was taken to recovery room in stable condition. I will see her in 2 weeks to see how she is progressing. It may take full 2 weeks to see the full effects of the Botox. I have instructed her to follow her IC diet, instructed to work on stopping all caffeine, nicotine, spicy foods, and avoiding things high in potassium such as tomatoes, broccoli, bananas. I have asked her to work on stress reduction and weight loss, and I will keep you informed of her findings and her progress. /[id number] Dictated By: VOLODYMYR VILLARREAL E-Signed By: ALDO 1013 [id number] [\R\ rep ct labl] [\R\ rep ct ivnm] Medical Disclaimer: This report is to be considered preliminary until reviewed and signed. documented in this encounter Plan of Treatment Not on file documented as of this encounter Visit Diagnoses Not on filedocumented in this encounter Care Teams Gripper Attacher Relationship Specialty Start Date End Date Taina Lyles, ADRI [address] [place] [address] PCP - General Nurse Practitioner 06/15/23 documented as of this encounter
--- OUTSIDE RECORDS SUMMARY | 2025-06-23 17:43 | XMS_ITS | Encounter Summary ---
Author Organization [facility] Address [address] [place] [address] Care Team Providers Care Fluid Pump Operator Name Role Phone Lea Fernando Unavailable [phone] Rachel Ray STUDIO MANAGER Unavailable [phone] Alvarez Zimmer MD Primary Care Provider [phone] Tamera Isabel BUSINESS OFFICE COORDINATOR Unavailable Unavailabl e Encounter Details Date Type Department Care Team (Late st Contact Info) Description 06/20/2025 Telephone [facility] [address] [facility] Medicine [address] [place] [address] Alvarez Zimmer MD [address] [place] [address] Social History Tobacco Use Types Packs/Day Years [...] week 01/10/2025 How often do you attend [employer] [facility] or scientologist services? Patient unable to answer [...] any time in the past 12 m [facility], were you homeless or [...] How often do you attend chur or scientologist services? Never 05/29/2025 Do you belong to [...] more drinks on one occasion? Never 06/05/2025 [facility] - Occupational Stress Questionnaire [...] any time in the past 12 m [facility], were you homeless or [...] drink first t kennedy in the morning (EYE-STORE PRODUCT DEMONSTRATOR) to steady your nerves or to get [...] encounter Miscellaneous Notes * Telephone Encounter - Christy Buckley - 06/21/2025 1:55 PM EDT I spoke to patient concerning previous referral to hospice care [facility]. I did search an there is [facility] so I have faxed a referral to them. * Telephone Encounter - Alvarez Zimmer MD - 06/20/2025 4:22 PM EDT So for the hospice company they should come to discuss options at home. I would let them know and provide the number to contact them. IF they only offer a facility then we can try another group but Iwas hoping the hospice group we referred to can come to discuss home options. If we can call the company we referred to just to double check that they can offer that first that would be ideal. * Telephone Encounter - Kylee Dela Cruz - 06/20/2025 3:54 PM EDT Clinical Concern/Question Reason for Call: Pt was in on 06/05 and Palliative Care was discussed. Pt asking if PCP has found a location and if they would come to her home or if she would go to a facility. Best contact number: [phone] (mobile) Optimal time of day to reach caller: ANYTIME Additional comments/information from caller: None Note: Please do not reply to this message. Follow-up communication and further actions as a result of this message need to be communicated with the patient directly, if the patient is not active onMyChart. If the patient is active on MyChart, they will receive notification of the communication/outcome via Oneflare. documented in this encounter Plan of Treatment Upcoming Encounters Date Type Department Care Team (Late st Contact Info) Description 06/27/2025 9:30 AM EDT Appointment [facility] Interventional Radiology [address] [place] [address] 06/27/2025 10:30 AM EDT Appointment [facility] Inter[facility] Radiology [address] [place] [address] 07/04/2025 10:30 AM EDT Appointment [facility] Radiology [address] [place] [address] 07/04/2025 11:30 AM EDT Appointment [facility] Interventional Radiology [address] [place] [address] 07/09/2025 2:40 PM EDT Office Visit [facility] Bone & Mineral Metabolism [address] [facility], [address] [place] [address] Ar Dominique MD [address] [place] [address] 07/11/2025 10:30 AM EDT Appointment [facility] Inter[facility] Radiology [address] [place] [address] 07/11/2025 11:30 AM EDT Appointment [facility] Radiology [address] [place] [address] 07/18/2025 10:30 AM EDT Appointment [facility] Inter[facility] Radiology [address] [place] [address] 07/18/2025 11:30 AM EDT Appointment [facility]iology [address] [place] [address] 07/25/2025 10:30 AM EDT Appointment [facility]iology [address] [place] [address] 07/25/2025 11:30 AM EDT Appointment [facility]iology [address] [place] [address] 07/31/2025 9:00 AM EDT Office Visit [address] [address] Alvarez Zimmer MD [address] [place] [address] 08/20/2025 9:30 AM EDT Clinical Support [facility] [place] [address] [place] [address] 08/20/2025 10:30 AM EDT Social Work [facility] [place] [address] [place] [address] [place] [address] 08/20/2025 11:00 AM EDT Office Visit [facility] [place] [address] [place] [address] Jude Duque MD [address] [place] [address] 10/30/2025 1:20 PM EST Office Visit [facility] Endocrinology [address] [place] [address] Sharif Moreno, DPM [address] [place] [address] documented as of this encounter [...] documented as of this encounter Care Teams Fluid Pump Operator Relationship Specialty Start Date End Date Alvarez Zimmer MD [address] [place] [address] PCP - General Family Medicine 12/07/24 Lea Fernando [address] [place] [address] Handyperson Endocrinology 08/29/24 Rachel Ray APRN [address] [place] [address] Nurse Practitioner Gastroenterology 09/24/24 Tamera Isabel LPN VALUE-BASED TRANSFORMATION PROGRAM Licensed Practical Nurse 05/29/25 documented as of this encounter
--- OUTSIDE RECORDS SUMMARY | 2025-06-23 17:43 | XMS_ITS | Clinical Summary ---
Author Organization [facility], [facility] Address [address] [place] [id number] Phone Care Team Providers Care Catering Cook Name Role Phone Taina Lyles Primary Care Provider [phone] Allergies No known active allergies Medications * This document contains information received from the source organization and may not represent a complete record from that organization. metFORMIN (GLUCOPHAGE) 1000 MG tablet Take 1,000 mg by mouth in the morning and 1,000 mg in the evening. Take with meals. Active rosuvastatin (CRESTOR) 10 MG tablet Take 10 mg by mouth in the morning. Active zonisamide (ZONEGRAN) 100 MG capsule Take 100 mg by mouth in the morning. Active Ubrogepant 50 MG tablet Take 1 tablet by mouth if needed Up to 2 doses Active ezetimibe (ZETIA) 10 MG tablet Take 10 mg by mouth 1 (one) time each day Active insulin aspart protamine-insul in aspart (NovoLOG 70/30) (70-30) 100 UNIT/ML injection Inject 26 Units under the skin in the morning and 26 Units in the evening. Inject before meals. Sliding scale 20 am 15 noon 15 pm. Active phenazopyridine (PYRIDIUM) 100 MG tablet Take 100 mg by mouth 3 (three) times a day if needed for bladder spasms Active cetirizine (ZyrTEC) 10 MG tablet Take 10 mg by mouth 1 (one) time each day Active Vibegron (Gemtesa) 75 MG tablet Take 1 tablet by mouth 1 (one) time each day Active insulin glargine (LANTUS) 100 UNIT/ML injection Inject 48 Units under the skin 1 (one) time each day Active traZODone (DESYREL) 100 MG tablet Take 100 mg by mouth every night Take 1 to 1.5 tablets at night time Active buPROPion (ZYBAN) 150 MG 12 hr tablet Take 150 mg by mouth 1 (one) time each day Do not crush, chew, or split. Active sertraline (ZOLOFT) 50 MG tablet Take 50 mg by mouth 1 (one) time each day Active gabapentin (NEURONTIN) 300 MG capsule Take 300 mg by mouth in the morning and 300 mg in the evening. Active memantine (NAMENDA) 5 MG tablet Take 5 mg by mouth at bed time Active spironolactone (ALDACTONE) 100 MG tablet Take 100 mg by mouth 1 (one) time each day Active Multiple Vitamin (multivitamin) tablet Take 1 tablet by mouth 1 (one) time each day Active rifAXIMin (XIFAXAN) 550 MG tablet Take 550 mg by mouth in the morning and 550 mg in the evening. Active lactulose (CHRONULAC) 10 GM/15ML solution Take 20 g by mouth in the morning and 20 g in the evening and 20 g before bedtime. Active furosemide (LASIX) 20 MG tablet TAKE 1 TABLET EVERY DAY 90 tablet 3 06/29/2024 Active prochlorperazin e (COMPAZINE) 5 MG tablet Take 5 mg by mouth every 6 (six) hours if needed for nausea or vomiting Active Active Problems Problem Noted Date Diagnosed Date Chronic kidney disease, stage 2 (mild) 2 Overview (04/29/2022): Secondary to chronic NSAID usage. Diabetes mellitus 04/29/2022 Overview (04/29/2022): with DR, h/o microalbuminuria Target HbA1c of 7% was discussed with the patient. It is monitored by the PMD. Encouraged med and dietary compliance. Risk of poorly controlled DM2 and progressing comorbid conditions including neuropathy, nephropathy, heart disease and increased mortality discussed. Dyslipidemia 04/29/2022 Overview (04/29/2022): Treated and monitored by PMD. Encouraged the patient to follow low fat diet and have good medication compliance as well as risks and complications of uncontrolled lipids. Hypomagnesemia 04/29/2022 Overview (04/29/2022): Associated with PPI use, unable to come off PPI Microalbuminuria 04/29/2022 Urinary incontinence 04/29/2022 Obesity 06/27/2020 Overview (04/29/2022): Body mass index is 30.34 kg/m . Patient was counselled for obesity related medical problems, risks and complications, including but not limited to DM, Hypertension, JONATHAN, osteoarthritis etc. Counselled for weight loss with dietary and lifestyle modification, as well as exercise and about portion control. It was emphasized that combination of all this works much better as compared to trying one thing at a time. Details about increased complexity of all forms of care along with increased mortality and morbidity discussed as well. Obstructive sleep apnea syndrome 12/03/2019 Overview (04/29/2022): The risk of untreated sleep apnea was discussed in detail including the cardio/renal and pulmonary complications including worsening risk of peripheral edema, right- sided heart failure as well as renal failure leading to dialysis. Chronic obstructive pulmonary disease 08/22/2018 Coronary atherosclerosis 08/22/2018 Degeneration of lumbar intervertebral disc 08/22 Seropositive rheumatoid arthritis 08/22/2018 Systemic lupus erythematosus 08/22/2018 Diabetic peripheral neuropathy 01/07/2017 Immunizations Immunization Administration Dates Next Due Influenza, Quadrivalent, Preservative Free 10/01,02/11/2021,08/18/2017 Influenza, Quadrivalent, With Preservative 09/05,08/23/2018,08/10/2016 Influenza, Unspecified 09/10/2022,09/01/2015 Pneumococcal Polysaccharide 08/23/2018 Shingrix 10/30/2019,07/17/2019 Tdap 07/17/2019 Family History Medical History Relation Comments Cancer Father Diabetes Father Heart disease Father Kidney disease Father Alzheimer's disease Maternal Grandmother Parkinsonism Maternal Grandmother Arthritis Mother Cancer Mother Diabetes Mother Heart disease Mother Hyperlipidemia Mother Hypertension Mother Irritable bowel syndrome Mother Mental illness Mother Osteoarthritis Mother Thyroid cancer Mother Emphysema Paternal Grandfather Stomach cancer Paternal Grandfather Diabetes Sister Relation Status Comments Father Maternal Grandmother Mother Paternal Grandfather Sister Social History Tobacco Use Types Packs/Day Years Used Date Smoking Tobacco: Never Smokeless Tobacco: Never Tobacco Cessation:Counseling Given: Not Answered Alcohol Use Standard Drinks/Week Comments Never 0 (1 standard drink = 0.6 oz pur e alcohol) Comments No Sex and Gender Information Value Date Recorded Sex Assigned at Not on file Legal Sex Female 12:48 PM EDT Gender Identity Not on file Sexual Orientation Not on file Last Filed Vital Signs Vital Sign Reading Time Taken Comments Blood Pressure 116/60 05/02/2024 10:01 AM EDT Pulse 73 05/02/2024 10:01 AM EDT Temperature 36.2 C (97.1 F) 04/28/2021 10:06 AM EDT Respiratory Rate - - Oxygen Saturation 95% 05/02/2024 10:01 AM EDT Inhaled Oxygen Concentration - - Weight 83.3 kg (183 lb 9.6 oz) 05/02/2024 10:01 AM EDT Height 167.6 cm (5' 6 ) 05/02/2024 10:01 AM EDT Body Mass Index 29.63 05/02/2024 10:01 AM EDT Plan of Treatment Health Maintenance Due Date Last Done Comments Breast Cancer Screening 1962 Colorectal Cancer Screening: Annual FOBT 2011 Colorectal Cancer Screening: Colonoscopy 2011 Colorectal Cancer Screening: Sigmoidoscopy 2011 Pneumococcal Vaccine: 50+ Ye ars (2 of 2 - PCV) 08/23/2019 08/23/2018 Diabetes: Ophthalmology Exam 08/26/2021 Diabetes: Pedal Pulse Checked 08/26/2021 Diabetes: Sensory Foot Exam 08/26/2021 Diabetes: Visual Foot Exam 08/26/2021 Hepatitis B Vaccine (1 of 3 - Risk 3-dose series) 2022 Influenza Vaccine (#1) 2025 2, 10/01/2021, 02/11/2021, Additional history exists Diabetes: Hemoglobin A1C 08/23/2025 025, 01/08/2025, 10/22/2024, Additional history exists Pneumococcal Vaccine: Peds ( 0 to 5 Years) and At-Risk Patients (6 to 49 Years) Discontinued 08/23/2018 Insurance [employer] Dual [employer] MCR/GINGER Care Teams Catering Cook Relationship Specialty Start Date End Date Taina Lyles [address] [place] [address] PCP - General 05/02/23
--- OUTSIDE RECORDS SUMMARY | 2025-06-23 17:43 | XMS_ITS | Encounter Summary ---
Author Organization [facility] ([place], [place], [place], [place]) Address [address] [place] [address] Care Team Providers Care Euclid Operator Name Role Phone Trupti Taina Burt APRN Primary Care Provider [phone] Reason for Referral * Diagnostic X-Ray (Routine) - Closed Specialty Diagnoses / Procedures Referred By Contac t Referred To Contact Diagnoses Pre-op testing Urge incontinence Encopresis without constipation and overflow incontinence Procedures X-ray abdomen KUB 1 view Rory Villarreal MD [facility] [address] [place] [address] Phone: tel: fax: Referral ID Status Reason Start Date Expiration Date Visits Re quested Visits Authorized [id number] Closed 06/15/2023 12/12/2023 1 1 * Diagnostic X-Ray (Routine) - Closed Specialty Diagnoses / Procedures Referred By Contac t Referred To Contact Diagnoses Pre-op testing Urge incontinence Encopresis without constipation and overflow incontinence Procedures X-ray [place] [address] [place] [address]. [address] [place] [address] Phone: tel: fax: Referral ID Status Reason Start Date Expiration Date Visits Re quested Visits Authorized [id number] Closed 06/15/2023 12/12/2023 1 1 Encounter Details Date Type Department Care Team (Late st Contact Info) Description 06/15/2023 Outside Orders [facility] [place] [facility] [address] [place] [address] Rory Villarreal MD [address] [facility] [place] [address] Pre-op testing (Primary Dx); Urge incontinence; Encopresis without constipation and overflow incontinence Social History Tobacco Use Types Packs/Day Years [...] Date Beau rded Speak language other than French at home Not on file 12/01/2023 Want [...] on file documented as of this encounter Results * X-ray chest PA and lateral (06/15/2023 1:32 PM EDT) Anatomical Region Laterality Modality Chest X-Ray 06/15/2023 2:24 PM EDT Impressions 06/15/2023 2:36 PM EDT No acute cardiopulmonary process. KUB HISTORY: Nephrolithiasis. FINDINGS: A single view of the abdomen with a coned-down of the pelvis demonstrates a nonspecific bowel gas pattern. No definite abnormal calcifications are identified. IMPRESSION: Nonspecific bowel gas pattern. Images reviewed, interpreted, and dictated by Dr. Ortega Samaniego. Transcribed by Marlon Oviedo PA-C. Narrative 06/15/2023 2:36 PM EDT 2 VIEW CHEST HISTORY: Preoperative exam for pulmonary clearance. COMPARISON: None. FINDINGS: The heart is normal in size. The mediastinum is unremarkable. Diffuse interstitial changes are probably chronic. The lungs are otherwise clear . There is no pneumothorax. The osseous structures are unremarkable. Procedure Note Filipe Samaniego MD - 06/15/2023 2 VIEW CHEST HISTORY: Preoperative exam for pulmonary clearance. COMPARISON: None. FINDINGS: The heart is normal in size. The mediastinum is unremarkable. Diffuse interstitial changes are probably chronic. The lungs are otherwise clear . There is no pneumothorax. The osseous structures are unremarkable. IMPRESSION: No acute cardiopulmonary process. KUB HISTORY: Nephrolithiasis. FINDINGS: A single view of the abdomen with a coned-down of the pelvis demonstrates a nonspecific bowel gas pattern. No definite abnormal calcifications are identified. IMPRESSION: Nonspecific bowel gas pattern. Images reviewed, interpreted, and dictated by Dr. Ortega Samaniego. Transcribed by Marlon Oviedo PA-C. us Rory Villarreal MD IMG DIAGNOSTIC IMAGING ORDERABLE S Final Result * X-ray abdomen KUB 1 view (06/15/2023 1:31 PM EDT) Anatomical Region Laterality Modality Abdomen X-Ray 06/15/2023 2:24 PM EDT Impressions 06/15/2023 2:36 PM EDT No acute cardiopulmonary process. KUB HISTORY: Nephrolithiasis. FINDINGS: A single view of the abdomen with a coned-down of the pelvis demonstrates a nonspecific bowel gas pattern. No definite abnormal calcifications are identified. IMPRESSION: Nonspecific bowel gas pattern. Images reviewed, interpreted, and dictated by Dr. Ortega Samaniego. Transcribed by Marlon Oviedo PA-C. Narrative 06/15/2023 2:36 PM EDT 2 VIEW CHEST HISTORY: Preoperative exam for pulmonary clearance. COMPARISON: None. FINDINGS: The heart is normal in size. The mediastinum is unremarkable. Diffuse interstitial changes are probably chronic. The lungs are otherwise clear . There is no pneumothorax. The osseous structures are unremarkable. Procedure Note Filipe Samaniego MD - 06/15/2023 2 VIEW CHEST HISTORY: Preoperative exam for pulmonary clearance. COMPARISON: None. FINDINGS: The heart is normal in size. The mediastinum is unremarkable. Diffuse interstitial changes are probably chronic. The lungs are otherwise clear . There is no pneumothorax. The osseous structures are unremarkable. IMPRESSION: No acute cardiopulmonary process. KUB HISTORY: Nephrolithiasis. FINDINGS: A single view of the abdomen with a coned-down of the pelvis demonstrates a nonspecific bowel gas pattern. No definite abnormal calcifications are identified. IMPRESSION: Nonspecific bowel gas pattern. Images reviewed, interpreted, and dictated by Dr. Ortega Samaniego. Transcribed by Marlon Oviedo PA-C. Rory Villarreal MD IMG DIAGNOSTIC IMAGING ORDERABLE S Final Result * ECG 12 lead (06/15/2023 1:16 PM EDT) VENTRICULAR RATE EKG/MIN 84 BPM GE MUSE ATRIAL RATE (MCT) 84 BPM GE MUSE IL Interval 128 ms GE MUSE QRS-INTERVAL (MSEC) 88 ms GE MUSE QT Interval 372 ms GE MUSE QTC Interval 439 ms GE MUSE P [place] 49 degrees GE MUSE R AXIS (MCT) -34 degrees GE MUSE T Wave [place] 39 degrees GE MUSE [place] Diagnosis Normal sinus rhythm Left axis deviation Abnormal ECG No previous ECGs available Confirmed by Viktor Silver George ([id number]) on 06/21/2023 8:37:51 AM GE MUSE 06/15/2023 1:16 PM EDT 06/21/2023 8:37 AM EDT Rory Villarreal MD ECG ORDERABLES Final Result GE MUSE * (ABNORMAL) Urine Culture (06/15/2023 1:06 PM EDT) Result 10-100,000 CFU Escherichia coli(A) 06/17/2023 8:01 AM EDT [facility] Urine URINE SPECIMEN COLLECTION, CLEAN CATCH / Unknown 06/15/2023 1:06 PM EDT 06/15/2023 1:06 PM EDT Narrative Organism Antibiotic Method Susceptibility Escherichia coli Amikacin <=16: Susceptible Escherichia coli Ampicillin >16: Resistant Escherichia coli Ampicillin + Sulbactam 16/8: Intermediate Escherichia coli Aztreonam <=4: Susceptible Escherichia coli Cefazolin <=2: Susceptible Escherichia coli Cefepime <=2: Susceptible Escherichia coli Cefotaxime <=2: Susceptible Escherichia coli Cefoxitin <=8: Susceptible Escherichia coli Ceftazidime <=1: Susceptible Escherichia coli Ceftriaxone <=1: Susceptible Escherichia coli Cefuroxime <=4: Susceptible Escherichia coli Ertapenem <=0.5: Susceptible Escherichia coli Gentamicin <=4: Susceptible Escherichia coli Levofloxacin >4: Resistant Escherichia coli Meropenem <=1: Susceptible Escherichia coli Nitrofurantoin <=32: Susceptible Escherichia coli Piperacillin + Tazobactam <=16: Susceptible Escherichia coli Tigecycline <=2: Susceptible Escherichia coli Tobramycin <=4: Susceptible Escherichia coli Trimethoprim + Sulfamethoxazole <=2/38: Susceptible us Rory Villarreal MD MICROBIOLOGY - GENERAL ORDERABLE S Final Result [facility] [address] [phone] * (ABNORMAL) Comprehensive metabolic panel (06/15/2023 1:06 PM EDT) Sodium 133(L) 136 - 145 meq/L 06/15/2023 2:57 PM EDT [facility] Potassium 4.4 3.5 - 5.1 meq/L 06/15/2023 2:57 PM EDT [facility] Chloride 96(L) 98 - 107 meq/L 06/15/2023 2:57 PM EDT [facility] CO2 32 21 - 32 meq/L 06/15/2023 2:57 PM EDT [facility] Calcium 9.9 8.5 - 10.1 mg/dL 06/15/2023 2:57 PM EDT [facility] Glucose 426(H) 74 - 99 mg/dL 06/15/2023 2:57 PM EDT [facility] BUN 17 7 - 18 mg/dL 06/15/2023 2:57 PM EDT [facility] Creatinine 1.09(H) 0.55 - 1.02 mg/dL 06/15/2023 2:57 PM EDT [facility] Albumin 2.6(L) 3.4 - 5.0 g/dL 06/15/2023 2:57 PM EDT [facility] Alkaline Phosphatase 191(H) 50 - 136 U/L 06/15/2023 2:57 PM EDT [facility] ALT 20 12 - 78 U/L 06/15/2023 2:57 PM EDT [facility] AST 52(H) 15 - 37 U/L 06/15/2023 2:57 PM EDT [facility] Total Bilirubin 2.5(H) 0.2 - 1.0 mg/dL 06/15/2023 2:57 PM EDT [facility] Protein, Total 7.7 6.4 - 8.2 gm/dL 06/15/2023 2:57 PM EDT [facility] Anion Gap 9 06/15/2023 2:57 PM EDT [facility] Globulin 5.1(H) 0.4 - 4.9 g/dL 06/15/2023 2:57 PM EDT [facility] Osmolality Calc 286.1 2:57 PM T [facility] eGFR (mL/min/1.73m2) 58(L) >=60 mL/min/1.7 3m2 06/15/2023 2:57 PM T [facility] Comment:ESTIMATED GFR IS NOT ACCURATE CREATININE CLEARANCE IN PREDICTING GLOMERULAR FILTRATION RATE. ESTIMATED GFR IS NOT APPLICABLE FOR DIALYSIS PATIENTS. Blood Venipuncture / Unknown 06/15/2023 1:06 PM EDT 06/15/2023 1:06 PM EDT us Rory Yalkut MD LAB BLOOD ORDERABLES Final Resul t [facility] [address] [place] [address], [facility] [phone] * (ABNORMAL) CBC with automated diff (06/15/2023 1:06 PM EDT) WBC 4.3 4.0 - 10.0 K/ L 06/15/2023 2:11 PM EDT [facility] RBC 3.82(L) 3.93 - 5.22 M/ L 06/15/2023 2:11 PM EDT [facility] Hemoglobin 11.9 11.2 - 15.7 GM/DL 06/15/2023 2:11 PM EDT [facility] Hematocrit 36.6 34.1 - 44.9 % 06/15/2023 2:11 PM EDT [facility] MCV 96(H) 79 - 95 fL 06/15/2023 2:11 PM EDT [facility] MCH 31.2 25.6 - 32.2 pg 06/15/2023 2:11 PM EDT [facility] MCHC 32.5 32.3 - 36.5 GM/DL 06/15/2023 2:11 PM EDT [facility] RDW 15.1(H) 11.5 - 14.5 % 06/15/2023 2:11 PM EDT [facility] Platelets 72(L) 182 - 369 K/CU MM 06/15/2023 2:11 PM EDT [facility] MPV 10.8 9.4 - 12.4 fL 06/15/2023 2:11 PM EDT [facility] Nucleated Red Blood Cell 0.0 0 - 0.2 % 06/15/2023 2:11 PM EDT [facility] % Neutros 61 42 - 75 % 06/15/2023 2:11 PM EDT [facility] % Lymphs 26 19 - 52 % 06/15/2023 2:11 PM EDT [facility] % Monos 9 5 - 13 % 06/15/2023 2:11 PM EDT [facility] % Eos 3 1 - 7 % 06/15/2023 2:11 PM EDT [facility] % Baso 1 0 - 2 % 06/15/2023 2:11 PM EDT [facility] NRBC Absolute 0.00 0 - 0.12 K/ul 06/15/2023 2:11 PM EDT [facility] # Neutros 2.62 1.56 - 6.13 K/ L 06/15/2023 2:11 PM EDT [facility] # Lymphs 1.14(L) 1.48 - 4.50 K/ L 06/15/2023 2:11 PM EDT [facility] # Monos 0.40 0.24 - 0.82 K/ L 06/15/2023 2:11 PM EDT [facility] # Eos 0.13 0.00 - 6.00 K/ L 06/15/2023 2:11 PM EDT [facility] # Baso 0.03 0.01 - 0.08 K/ L 06/15/2023 2:11 PM EDT [facility] Immature Granulocytes-Re lative 0.20(H) 0.00 - 0.00 % 06/15/2023 2:11 PM EDT [facility] # IG 0.01 0.00 - 0.50 K/uL 06/15/2023 2:11 PM EDT [facility] Blood Venipuncture / Unknown 06/15/2023 1:06 PM EDT 06/15/2023 1:06 PM EDT Narrative [facility] - 06/15/2023 2:11 PM EDT When CBC w/ Auto Diff is ordered the lab will add a Manual Differential as a quality check at no additional charge if: Lymphocytes greater than seventy five percent with normal or increased WBC Monocytes greater than Fifteen percent Basophil greater than four percent Bands >10% or several immature myeloids are seen on scan Blast? Flag noted Atypical Lymph flag noted us Rory Villarreal MD LAB BLOOD ORDERABLES Final Resul t [facility] [address] [place] [address], [facility] [phone] documented in this encounter Visit Diagnoses Diagnosis Pre-op testing- Primary Unspecified pre-operative examination Urge incontinence Encopresis without constipation and overflow incontinence Incontinence of feces Pre-op testing Unspecified pre-operative examination Urge incontinence Encopresis without constipation and overflow incontinence Incontinence of feces Pre-op testing Unspecified pre-operative examination Urge incontinence Encopresis without constipation and overflow incontinence Incontinence of feces documented in this encounter Care Teams [place]ucl[place] Operator Relationship Specialty Start Date End Date Taina Lyles, CHIEF BANK EXAMINER [address] [place] [id number] PCP - General Nurse Practitioner 06/15/23 documented as of this encounter
--- OUTSIDE RECORDS SUMMARY | 2025-06-23 17:43 | XMS_ITS | Encounter Summary ---
Author Organization [facility] Address [address] [place] [address] Care Team Providers Care Territory Sales Manager Name Role Phone NaseemSeanTor, Lea Clarke Unavailable [phone] Rachel Ray TOWEL DISTRIBUTOR Unavailable [phone] Alvarez Zimmer MD Primary Care Provider [phone] Tamera Isabel ASSOCIATE EMBALMER/FUNERAL DIRECTOR Unavailable Unavailabl e Reason for Visit * Reason Onset Date Comments HCN Clinical Concern/Question 06/21/2025 Encounter Details Date Type Department Care Team (Late st Contact Info) Description 06/21/2025 Telephone [facility] Medicine [address] [place] [address] Alvarez Zimmer MD [address] [place] [address] HCN Clinical Concern/Question Social History Tobacco Use Types Packs/Day Years [...] week 01/10/2025 How often do you attend [facility] or sikhism services? Patient unable to answer 01/10/2025 Do [...] any time in the past 12 m [facility], were you homeless or living in a prison (including now)? No 03/06/2025 Humiliation, Afraid, Rape, [...] How often do you attend chur or sikhism services? Never 05/29/2025 Do you belong to [...] drinks on one occasion? Never 06/05/2025 [facility] of Occupat ional Health - Occupational Stress [...] any time in the past 12 m [facility], were you homeless or living in a [...] drink first t kennedy in the morning (EYE-CERTIFIED SKI PATROLLER) to steady your nerves or to get [...] Telephone Encounter - Christy Buckley - 06/21/2025 4:12 PM EDT I advised patient of this information. * Telephone Encounter - Alvarez Beth - 06/21/2025 3:50 PM EDT Clinical Concern/Question Reason for Call: Calling to let clinic know that pt is out of service area for in home palliative care. Best contact number: Other: [phone] Optimal time of day to reach caller: ANYTIME Additional comments/information from caller: None Note: Please do not reply to this message. Follow-up communication and further actions as a result of this message need to be communicated with the patient directly, if the patient is not active onMyChart. If the patient is active on MyChart, they will receive notification of the communication/outcome via [employer]. documented in this encounter Plan of Treatment Upcoming Encounters Date Type Department Care Team (Late st Contact Info) Description 06/27/2025 9:30 AM EDT Appointment [facility] [address] [place] [address] 06/27/2025 10:30 AM EDT Appointment [facility] [address] [place] [address] 07/04/2025 10:30 AM EDT Appointment [facility] [address] [place] [address] 07/04/2025 11:30 AM EDT Appointment [facility] [address] [place] [address] 07/09/2025 2:40 PM EDT [facility] [address] [facility], [address] [place] [address] Ar Dominique MD [address] [place] [address] 07/11/2025 10:30 AM EDT Appointment [facility] [address] [place] [address] 07/11/2025 11:30 AM EDT Appointment [facility] [address] [place] [address] 07/18/2025 10:30 AM EDT Appointment [facility] [address] [place] [address] 07/18/2025 11:30 AM EDT Appointment [facility] [address] [place] [address] 07/25/2025 10:30 AM EDT Appointment [facility] [address] [place] [address] 07/25/2025 11:30 AM EDT Appointment [facility] [address] [place] [address] 07/31/2025 9:00 AM EDT Office Visit [address] [address] Alvarez Zimmer MD [address] [place] [address] 08/20/2025 9:30 AM EDT Clinical Support [facility] [place] [address] [place] [address] 08/20/2025 10:30 AM EDT Social Work [facility] [place] [address] [place] [phone] [place] [address] 08/20/2025 11:00 AM EDT Office Visit [facility] [address] [place] [address] Jude Duque MD [address] [place] [address] 10/30/2025 1:20 PM EST Office Visit [facility] Endocrinology [address] [place] [address] Sharif Moreno, DPM [address] [place] [address] documented as of this encounter [...] documented as of this encounter Care Teams Territory Sales Manager Relationship Specialty Start Date End Date Alvarez Zimmer MD [address] [place] [phone] PCP - General Family Medicine 12/07/24 Lea Fernando [address] [place] [phone] World Geography Teacher Endocrinology 08/29/24 Rachel Ray APRN [address] [place] [address] Nurse Practitioner Gastroenterology 09/24/24 Tamera Isabel LPN VALUE-BASED TRANSFORMATION PROGRAM Licensed Practical Nurse 05/29/25 documented as of this encounter
--- OUTSIDE RECORDS SUMMARY | 2025-06-23 17:43 | XMS_ITS | Encounter Summary ---
Author Organization [facility] Address [address] [place] [address] Care Team Providers Care Ceramic Coater Machine Name Role Phone Lea Fernando Unavailable [phone] Rachel Ray SLOT MACHINE FLOOR PERSON Unavailable [phone] Alvarez Zimmer MD Primary Care Provider [phone] Tamera Isabel LPN Unavailable Unavailabl e Reason for Referral * Imaging (Routine) - Closed Specialty Diagnoses / Procedures Referred By Eder t Referred To Contact Radiology Diagnoses Other ascites Procedures US Guided Abdominal Paracentesis Preeti Andersen APRN [address] [place] [address] Phone: tel: fax: Referral ID Status Reason Start Date Expiration Date Visits Re quested Visits Authorized [id number] Closed 06/20/2025 12/20/2026 1 1 Encounter Details Date Type Department Care Team (Late st Contact Info) Description 06/20/2025 Orders Only [facility] Vascular Interventional Radiology [address] [place] [address] Preeti Andersen APRN [address] [place] [address] Other ascites (Primary Dx) Social History Tobacco Use Types Packs/Day Years [...] week 01/10/2025 How often do you attend [facility] or rastafari services? Patient unable to answer 01/10/2025 Do you belong to any clubs o r organizations such as moravian groups, unions, fraternal or athletic groups, or [...] any time in the past 12 m [facility], were you homeless or living in [...] How often do you attend chur or rastafari services? Never 05/29/2025 Do you belong to any clubs o r organizations such as moravian groups, unions, fraternal or athletic groups, or [...] occasion? Never 06/05/2025 [facility] [place] of Occupat ional Health - Occupational Stress [...] any time in the past 12 m [facility], were you homeless or living in [...] drink first t kennedy in the morning (EYE-BARYTES GRINDER) to steady your nerves or to get rid of a hangover? 0 10/22/2024 CAGE Questionnaire Score 0 024 Utilities Answer Date Recorded In the past 12 months has e electric, gas, oil, or water company [...] Upcoming Encounters Date Type Department Care Team ([facility] st Contact Info) Description 06/27/2025 9:30 AM EDT Appointment [facility] [address] [place] [address] 06/27/2025 10:30 AM EDT Appointment [facility] [address] [place] [address] 07/04/2025 10:30 AM EDT Appointment [facility] [address] [place] [address] 07/04/2025 11:30 AM EDT Appointment [facility] [address] [place] [address] 07/09/2025 2:40 PM EDT Office Visit [facility] [address] [facility], [address] [place] [address] Ar Dominique MD [address] [place] [address] 07/11/2025 10:30 AM EDT Appointment [facility] [address] [place] [address] 07/11/2025 11:30 AM EDT Appointment [facility] [address] [place] [facility] [address] 07/18/2025 10:30 AM EDT Appointment [facility] [address] [place] [address] 07/18/2025 11:30 AM EDT Appointment [facility] [address] [place] [address] 07/25/2025 10:30 AM EDT Appointment [facility] [address] [place] [address] 07/25/2025 11:30 AM EDT Appointment [facility] [address] [place] [address] 07/31/2025 9:00 AM EDT Office Visit [address] [address] Alvarez Zimmer MD [address] [place] [address] 08/20/2025 9:30 AM EDT Clinical Support [facility] [address] [place] [address] 08/20/2025 10:30 AM EDT Social Work [facility] [place] [address] [place] [address] Deysi Ortega [place], [place] [phone] 08/20/2025 11:00 AM EDT Office Visit [facility] [address] [place] [address] Jude Duque MD [address] [place] [address] 10/30/2025 1:20 PM EST Office Visit [facility] Endocrinology [address] [place] [address] Sharif Moreno, DPM [address] [place] [address] Pending Results Name Type Priority Associated Diagnoses Date /Time US Guided Abdominal Paracentesis Imaging Routine Other ascites 06/20/2025 12:32 PM EDT documented as of this encounter Visit Diagnoses Diagnosis Other ascites- Primary documented in this encounter Additional Health Concerns Assessment Noted Time PHQ-9 Depression Total Score: 6 06/11/20 10:59 AM EDT A fall risk assessment has been complete d for the patient 06/11/2025 10:59 AM EDT A Body Mass Index follow-up plan has been documented for the patient 06/20/2025 2:10 PM EDT documented as of this encounter Care Teams Ceramic Coater Machine Relationship Specialty Start Date End Date Alvarez Zimmer MD [address] [place] [address] PCP - General Family Medicine 12/07/24 Lea Fernando [address] [place] [address] Pack Press Operator Endocrinology 08/29/24 Rachel Ray, SLOT MACHINE FLOOR PERSON [address] [place] [address] Nurse Practitioner Gastroenterology 09/24/24 Tamera Isabel, MG VALUE-BASED TRANSFORMATION PROGRAM Licensed Practical Nurse 05/29/25 documented as of this encounter
--- OUTSIDE RECORDS SUMMARY | 2025-06-23 17:43 | XMS_ITS | Encounter Summary ---
Author Organization [employer] ([place], [place], [place], [place]) Address [address] [place] [address] Care Team Providers Care Doctor Of Radiology Name Role Phone Taina Lyles APRN Primary Care Provider [phone] Encounter Details Date Type Department Care Team (Late st Contact Info) Description 02/10/2024 Outside Orders [facility] Scheduling [address] [place] [address] Taina Lyles APRN [address] [place] [address] Memory loss or impairment (Primary Dx) Social History Tobacco Use Types Packs/Day Years Used Date Smoking Tobacco: Never Smokeless Tobacco: Never Alcohol Use Standard Drinks/Week Comments Never 0 (1 standard drink = 0.6 oz pur e alcohol) Food Insecurity Answer Date Recorded Food run [...] Date Beau rded Speak language other than Chadian at home Not on file 12/01/2023 Want help with school or training Not on file 12/01/2023 Substance Use Answer Date Recorded Used prescription meds for non-medical reasons N ot on file 12/01/2023 Used illegal drugs past 12 months Not on file 12/01/2023 Comments No Sex and Gender Information Value Date Recorded Sex Assigned at Not on file Legal Sex Female 12:21 PM CDT Gender Identity Not on file Sexual Orientation Not on file documented as of this encounter Plan of Treatment Not on file documented as of this encounter Visit Diagnoses Diagnosis Memory loss or impairment- Primary Memory loss documented in this encounter Care Teams Doctor Of Radiology Relationship Specialty Start Date End Date Taina Lyles, CASH MANAGEMENT SPECIALIST [address] [place] [address] PCP - General Nurse Practitioner 06/15/23 documented as of this encounter
--- OUTSIDE RECORDS SUMMARY | 2025-06-23 17:43 | XMS_ITS ---
Author Organization [facility] Address [address] [place] [address] Care Team Providers Care Plastering Supervisor Name Role Phone Lea Fernando Unavailable [phone] Rachel Ray CRACKING UNIT OPERATOR Unavailable [phone] Alvarez Zimmer MD Primary Care Provider [phone] Tamera Isabel LIP AND GATE BUILDER Unavailable Unavailabl e Transplant Episode Kidney Candidate [facility] ([place], [place]) [facility] Evaluation began on 10/30/2024 Marked as Active on 10/30/2024 Kidney CoordinatorWilma Arana RN Fax: N/A Email: N/A Scores Score Value Updated Exceptions/Reas ons CPRA Not available EPTS (Calc) 53 06/23/2025 [place] Organ Diagnosis Organ Primary Contributory Kidney Diabetes Mellitus - Type II Care Team Name Role Phone Fax Email Wilma Arana RN Kidney Coordinator [phone] N/A N/A Events Pre-Transplant Referred: 10/21/2024 Evaluation began: 10/30/2024 Appointments (05/23/2025 - 07/24/2025) When With Visit Type Description 05/23/2025 Transplant LAB No Show 06/11/2025 Transplant - [facility] - Office Visit 06/11/2025 Transplant - [facility] 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
--- OUTSIDE RECORDS SUMMARY | 2025-06-23 17:43 | XMS_ITS ---
Author Organization [facility] Address [address] [place] [address] Care Team Providers Care Squadron Worker Name Role Phone Lea Fernando Unavailable [phone] Rachel Ray APRN Unavailable [phone] Alvarez Zimmer MD Primary Care Provider [phone] Tamera Isabel LPN Unavailable Unavailabl e Transplant Episode Liver Candidate [facility] ([place], [place]) - [facility] waitlisted on 02/19/2025 Marked as Inactive on 05/08/2025 Reason: Candidate Workup Incomplete Liver CoordinatorWilma Arana RN Fax: N/A Email: N/A Scores Score Value Updated Expires Exceptions/Jeanine sons CPRA Not available MELD (Calc) 23 06/11/2025 [place] Organ Diagnosis Organ Primary Contributory 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) Care Team Name Role Phone Fax Email Wilma Arana RN Liver Coordinator [phone] N/A N/A JAVI AbreuW Line Assembly Utility Worker [phone] N/A N/A Gerson Arora MD Surgeon [phone] N/A Wilma Howard APRN Primary Care Provider [phone] N/A Rachel Ray APRN Referring Physician [phone] N/A Events Pre-Transplant Referred: 09/24/2024 Evaluation began: 10/08/2024 Committee: 01/28/2025 Center waitlisted: 02/19/2025 Appointments (05/23/2025 - 07/24/2025) When With Visit [...]
--- OUTSIDE RECORDS SUMMARY | 2025-06-23 17:43 | XMS_ITS | Encounter Summary ---
Author Organization [facility] Address [address] [place] [address] Care Team Providers Care Mitten Sewer Name Role Phone Lea Fernando Unavailable [phone] Rachel Ray SKEIN WINDING OPERATOR Unavailable [phone] Alvarez Zimmer MD Primary Care Provider [phone] Tamera Isabel LPN Unavailable Unavailabl e Reason for Visit * Reason Onset Date Comments Med Refill 05/21/2025 Encounter Details Date Type Department Care Team (Late st Contact Info) Description 05/21/2025 Refill [facility] [address] [facility], [address] [place] [address] Ar Dominique MD [address] [facility] [address] [place] [address] Chronic kidney disease, stage 3b (CMS/HCC) Social History Tobacco Use Types Packs/Day [...] How often do you attend [facility] or jewish services? Patient unable to answer 01/10/2025 Do you belong to any clubs o r organizations such as restorationism groups, unions, [employer] or athletic groups, or school groups? Patient [...] Recorded Patient Health Questionnaire-2 Score 1 05/07/2025 [facility] [place] of Occupat ional Health - Occupational Stress [...] first t kennedy in the morning (EYE-MANAGER OF PHARMACY) to steady your nerves or to get [...] encounter Miscellaneous Notes * Telephone Encounter - Shauna Hernandez LPN - 05/22/2025 11:12 AM EDT On 04/22/25 prescription with two additional refills was sent to the pharmacy. Patient needs to contact pharmacy for a refill. documented in this encounter Plan of Treatment Upcoming Encounters Date Type Department Care Team (Late st Contact Info) Description 06/27/2025 9:30 AM EDT Appointment [facility] [address] [place] [address] 06/27/2025 10:30 AM EDT Appointment [facility] [address] [place] [address] 07/04/2025 10:30 AM EDT Appointment [facility] [address] [place] [address] 07/04/2025 11:30 AM EDT Appointment [facility] [address] [place] [address] 07/09/2025 2:40 PM EDT Office Visit [facility] [address], [address] [place] [address] Ar Dominique MD [address] [facility] [address] [place] [address] 07/11/2025 10:30 AM EDT Appointment [facility] [address] [place] [address] 07/11/2025 11:30 AM EDT Appointment [facility] [address] [place] [address] 07/18/2025 10:30 AM EDT Appointment [facility] [address] [place] [address] 07/18/2025 11:30 AM EDT Appointment [facility] [address] [place] [address] 07/25/2025 10:30 AM EDT Appointment [facility] [address] [place] [address] 07/25/2025 11:30 AM EDT Appointment [facility] [address] [place] [address] 07/31/2025 9:00 AM EDT Office Visit [address] [address] Alvarez Zimmer MD [address] [place] [address] 08/20/2025 9:30 AM EDT Clinical Support [facility] Center [address] [address] 08/20/2025 10:30 AM EDT Social Work [facility] [address] [place] [address] Deysi Ortega [place], [place] [phone] 08/20/2025 11:00 AM EDT Office Visit [facility] [address] [place] [address] Jude Duque MD [address] [place] [address] 10/30/2025 1:20 PM EST Office Visit [facility] Endocrinology [address] [place] [address] Sharif Moreno DPM [address] [place] [address] documented as of this encounter Visit Diagnoses Diagnosis Chronic kidney disease, stage 3b (CMS/HCC) documented in this encounter Additional Health Concerns Assessment Noted Time PHQ-9 Depression Total Score: 0 03/06/20 1:21 PM EDT A fall risk assessment has been complete d for the patient 05/07/2025 9:12 AM EDT A Body Mass Index follow-up plan has been documented for the patient 05/19/2025 12:23 PM EDT documented as of this encounter Care Teams Mitten Sewer Relationship Specialty Start Date End Date Alvarez Zimmer MD [address] [place] [address] PCP - General Family Medicine 12/07/24 Lea Fernando [address] [place] [address] Observation Assistant Endocrinology 08/29/24 Rachel Ray APRN [address] [place] [address] Nurse Practitioner Gastroenterology 09/24/24 Tamera Isabel LPN VALUE-BASED TRANSFORMATION PROGRAM Licensed Practical Nurse 05/29/25 documented as of this encounter
--- OUTSIDE RECORDS SUMMARY | 2025-06-23 17:43 | XMS_ITS | Clinical Summary ---
Author Organization [facility] Address [address] [place] [address] Care Team Providers Care Baby Stroller Rental Clerk Name Role Phone Taina Lyles APRN Primary Care Provider [phone] Allergies No known active allergies Medications * This document contains information received from the source organization and may not represent a complete record from that organization. metFORMIN (GLUCOPHAGE) 1000 MG tablet Take 1 tablet by mouth 2 (Two) Times a Day With Meals. Active PREMARIN 0.625 MG/GM vaginal cream 1 9 Active Magnesium Oxide 500 MG tablet Take 1 tablet by mouth 3 (Three) Times a Day. 9 Active rosuvastatin (CRESTOR) 20 MG tablet Take 1 tablet by mouth every night at bedtime. 0 Active Blood Glucose Monitoring Suppl (Accu-Chek Guide) w/Device kit USE TO CHECK BLOOD GLUCOSE THREE TIMES DAILY OR DIRECTED 2 Active BD Pen Needle Julissa 2nd Gen 32G X 4 MM misc USE TWICE DAILY DIRECTED FOR INSULIN INJECTIONS 2 Active ezetimibe (ZETIA) 10 MG tablet Take 1 tablet by mouth Daily. Active Accu-Chek Softclix Lancets lancets 2 Active Alcohol Swabs (DropSafe Alcohol Prep) 70 % pads 2 Active NovoLOG FlexPen 100 UNIT/ML solution pen-injector sc pen SS AC & HS 3 Active Lantus SoloStar 100 UNIT/ML injection pen 100 Units Daily. 3 Active cetirizine (zyrTEC) 10 MG tablet Take 1 tablet by mouth Daily As Needed. Active furosemide (LASIX) 40 MG tablet Take 1 tablet by mouth 2 (Two) Times a Day. Active Constulose 10 GM/15ML solution Take 30 mL 3 times a day by oral route for 30 days. Active multivitamin tablet tablet Take 1 tablet by mouth Daily. Active Gemtesa 75 MG tablet 4 Active spironolactone (ALDACTONE) 100 MG tablet Take 1 tablet by mouth Daily. Active gabapentin (Neurontin) 300 MG capsuleIndicatio ns:Intractable chronic migraine without aura and without status migrainosus Take 1 capsule by mouth 2 (Two) Times a Day. 60 capsule 2 4 Active memantine (NAMENDA) 5 MG tabletIndication s:MCI (mild cognitive impairment) Take 1 tablet by mouth Every Night. 30 tablet 3 4 07/26/20 25 Active ubrogepant (Ubrelvy) 100 MG tabletIndication s:Acute migraine Take 1 tablet by mouth 1 (One) Time As Needed (migraine). Wait 2 hours before 2nd dose. 16 tablet 3 4 Active zonisamide (ZONEGRAN) 100 MG capsuleIndicatio ns:Intractable chronic migraine without aura and without status migrainosus Take 1 capsule by mouth Daily. 30 capsule 3 4 Active riFAXIMin (XIFAXAN) 550 MG tablet Take 1 tablet by mouth Every 12 (Twelve) Hours. Active atorvastatin (LIPITOR) 40 MG tablet Take 1 tablet by mouth Daily. Active ciprofloxacin (CIPRO) 250 MG tablet Take 2 tablets by mouth Daily. Active Insulin Lispro (humaLOG) 100 UNIT/ML injection Inject 7 Units under the skin into the appropriate area as directed 3 (Three) Times a Day Before Meals. Active Loratadine 10 MG capsule Take 1 capsule by mouth Daily. Active magnesium oxide (MAG-OX) 400 MG tablet Take 1 tablet by mouth 4 (Four) Times a Day. Active Active Problems Problem Noted Date Diagnosed Date Secondary esophageal varices without bleeding Portal hypertensive gastropathy 02/24/2023 Irritable bowel syndrome wit h both constipation and diarrhea 02/24/2023 Ileus 12/02/2022 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) 11/30/2022 Diarrhea 10/26/2022 Elevated liver function tests 10/26/2022 Thrombocytopenia 10/26/2022 Fatty (change of) liver, not elsewhere classifie d 10/26/2022 Personal history of colonic polyps 10/26/2022 Overview (08/21/2024): REPLACING DXS THAT WERE INACTIVATED AFTER THE 08/21 REGULATORY UPDATE Diabetes mellitus 04/29/2022 Overview (10/20/2022): with DR, h/o microalbuminuria Target HbA1c of 7% was discussed with the patient. It is monitored by the PMD. Encouraged med and dietary compliance. Risk of poorly controlled DM2 and progressing comorbid conditions including neuropathy, nephropathy, heart disease and increased mortality discussed. Dyslipidemia 04/29/2022 Overview (10/20/2022): Treated and monitored by PMD. Encouraged the patient to follow low fat diet and have good medication compliance as well as risks and complications of uncontrolled lipids. Hypomagnesemia 04/29/2022 Overview (10/20/2022): Associated with PPI use, unable to come off PPI Microalbuminuria 04/29/2022 Urinary incontinence 04/29/2022 Hyperlipidemia 07/17/2021 Obesity 06/27/2020 Overview (10/20/2022): Body mass index is 30.34 kg/m . [...] well. Obstructive sleep apnea syndrome 12/03/2019 Overview (10/20/2022): The risk of untreated sleep apnea was discussed in detail including the cardio/renal and pulmonary complications including worsening risk of peripheral edema, right- sided heart failure as well as renal failure leading to dialysis. Memory loss 12/03/2019 Mixed hearing loss of right ear 08/24/2019 Sensorineural hearing loss of left ear 9 Tympanic membrane perforation 08/24/2019 Heartburn 08/02/2019 Epigastric pain 08/02/2019 Nausea 08/02/2019 Constipation 08/02/2019 Rectal bleeding 08/02/2019 Intractable migraine with aura without status mi grainosus 05/16/2019 Diabetic polyneuropathy asso ciated with type 2 diabetes mellitus 08/24/2018 Lumbar stenosis with neurogenic claudication 02/2018 Chronic kidney disease, stage 2 (mild) 8 Overview (10/20/2022): Secondary to chronic NSAID usage. Physical deconditioning 08/24/2018 Spondylosis of lumbar region without myelopathy or radiculopathy 08/22/2018 Degeneration of lumbar intervertebral disc 08/22 Anxiety and depression 08/22/2018 Systemic lupus erythematosus 08/22/2018 Rheumatoid arthritis with positive rheumatoid fa ctor 08/22/2018 Coronary atherosclerosis 08/22/2018 Chronic obstructive pulmonary disease 08/22/2018 ETD (eustachian tube dysfunction) 07/13/2018 Dysphagia 05/17/2018 Chronic throat clearing 05/17/2018 Gastroesophageal reflux disease 05/17/2018 Nasal septal deviation 05/17/2018 Nasal turbinate hypertrophy 05/17/2018 Diabetic peripheral neuropathy 01/07/2017 Alopecia 09/03/2016 Diabetes mellitus type 2 in obese 04/22/2015 Overview (02/20/2024): 02/20/24 REGULATORY IMO CHANGES Resolved Problems Problem Noted Date Diagnosed Date Resolved Date Acute hypotension 11/30/2022 12/02/2022 Partial small bowel obstruction 11/30/2022 12/02/2022 Dehydration 11/30/2022 12/02/2022 Encounter for screening for other viral diseases 11/02/2022 02/24/2023 Overview (11/02/2022): Added automatically from request for surgery [id number] Colon cancer screening 09/20/201910/26 Overview (09/20/2019): Added automatically from request for surgery [id number] Immunizations Immunization Administration Dates Next Due Flu Vaccine Split Quad 09/01/2015 Fluzone >6mos 08/02/2024(Deferred: Patient dec ision) Fluzone (or Fluarix & Flulav al for VFC) >6mos 10/01/2021,02/11/2021,08/18/2017 Fluzone Quad >6mos (Multi-dose) 09/05/2019,08/23,08/10/2016 Influenza, Unspecified 09/10/2022 Pneumococcal Conjugate 20-Va lent (PCV20) 08/02/2024(Deferred: Patient decision) Pneumococcal Polysaccharide (PPSV23) 08/23/2018 Shingrix 10/30/2019,07/17/2019 Tdap 07/17/2019 Family History Medical History Relation Name Comments Cancer Father Eliseo Singletary skin Diabetes Father Eliseo Singletary Heart disease Father Eliseo Singletary Kidney disease Father Eliseo Singletary Neuropathy Father Eliseo Singletary Breast cancer Maternal Aunt Neli Dials Pancreatitis Maternal Aunt Neli Dials Alzheimer's disease Maternal Grandmother Mamaw Mayelin Breast cancer Maternal Grandmother Mamaw Mayelin Dementia Maternal Grandmother Mamaw Mayelin Parkinsonism Maternal Grandmother Mamaw Mayelin Arthritis Mother Karime Diabetes Mother Karime Hyperlipidemia Mother Karime Irritable bowel syndrome Mother Karime Mental illness Mother Karime Osteoarthritis Mother Karime Thyroid cancer Mother Karime Breast cancer Other Emphysema Paternal Grandfather Epp Mayelin Stomach cancer Paternal Grandmother Anish Singletary Diabetes Sister 1 Lj Bernal Migraines Sister 1 Lj Bernal Diabetes Sister 2 Lj Bernal Colon cancer Neg Hx Relation Name Status Comments Father Eliseo Singletary Alive Maternal Aunt Neli Dials Maternal Grandmother Mamaw Mayelin Mother Karime Alive Other Paternal Grandfather Epp Mayelin Paternal Grandmother Anish Singletary Sister 1 Lj Bernal Sister 2 Lj Bernal Social History Tobacco Use Types Packs/Day Years [...] slept in a nursing home (including now)? No 12/01/2022 Abuse Screen [...] Orientation Straight 06/01/2025 9: 46 AM EDT Last Filed Vital Signs Vital Sign Reading Time Taken Comments Blood Pressure 132/74 11/13/2024 1:35 PM EST Pulse 90 11/13/2024 1:35 PM EST Temperature 36.4 C (97.6 F) 11/13/2024 10:50 AM EST Respiratory Rate 18 11/13/2024 1:35 PM EST Oxygen Saturation 98% 11/13/2024 1:35 PM EST Inhaled Oxygen Concentration - - Weight 83.7 kg (184 lb 9.6 oz) 11/13/2024 10:50 AM EST Height 165.1 cm (5' 5 ) 11/13/2024 10:50 AM EST Body Mass Index 30.72 11/13/2024 10:50 AM EST Plan of Treatment Health Maintenance Due Date Last Done Comments Annual Gynecologic Pelvic an d Breast Exam 1962 DIABETIC EYE EXAM 1972 DIABETIC FOOT EXAM 1972 URINE MICROALBUMIN-CREATININ E RATIO (uACR) 1972 COLOGUARD 2007 COLON CANCER SCREENING 5 YEA R SIGMOID[address]COPY 2007 [address] COLONOGRAPHY 2007 FECAL OCCULT BLOOD TEST 2007 FIT Testing (1 year) 2007 Pneumococcal Vaccine 50+ (2 of 2 - PCV) 08/23/2019 08/23/2018 Hepatitis B (1 of 3 - Risk 3 -dose series) 2022 PT PLAN OF CARE 03/01/2023 12/01/2022 COVID-19 Vaccine ( - 2023-2 5 season) 2024 GASTROSCOPY (EGD) 12/13/2024 12/13/2022, , 08/21/2019 INFLUENZA VACCINE 08/21/2025 09/10/2022, , 02/11/2021, Additional history exists LIPID PANEL 10/22/2025 10/22/2024, 12/2023, 10/02/2024, Additional history exists HEMOGLOBIN A1C 11/23/2025 05/23/2025, 01/2025, 01/08/2025, Additional history exists MAMMOGRAM 01/25/2026 01/26/2024, 05/2024, 10/21/2022, Additional history exists ANNUAL WELLNESS VISIT 06/05/2026 06/05/2025 COLONOSCOPY 01/14/2028 01/14/2023, 12/23, 09/27/2019, Additional history exists COLORECTAL CANCER SCREENING 01/14/2028 TDAP/TD VACCINES (2 - Td or Tdap) 07/17/2029 019 ZOSTER VACCINE Completed 10/30/2019, 07/17/2019 HEPATITIS C SCREENING Completed 10/22/2024 , 10/22/2024, 10/02/2024, Additional history exists Medical Devices Implanted Type Area Crisis Mental Health Therapist Device Identifier Shelf Expiration Date Model / Serial / Lot Implant Implant Description:BILATERAL IOL Clip Gi Lig Hemostasis Resolution 2.8mm - [id number] Implanted:Qty: 1 on 09/27/2019 by Ross Johnson MD at [facility] Implant [employer] 01/02/2022 [id number] / / [id number] Dev Clip Quickclippro Fix 2300mm - [id number] Implanted:Qty: 2 on 09/27/2019 by Ross Johnson MD at [facility] Implant [facility] 05/20/2022 HX20 2URA / / 97K Dev Clip Quickclippro Fix 2300mm - [id number] Implanted:Qty: 2 on 09/27/2019 by Ross Johnson MD at [facility] Implant [facility] 04/20/2022 HX20 2URA / / 96K Dev Clip Endo [id number] Contrl Rot 235cm - [id number] Implanted:Qty: 1 on 01/14/2023 by Lori Rm MD at [facility] Implant N/A: Perianal [employer] 09/27/2025 [id number] / / [id number] Procedures Procedure Name Priority Date/Time Associated Diagnosis Comments LIPID PANEL Routine 06/15/2024 2:00 PM EDT Pure hypercholesterolemia MAMMO DIAGNOSTIC DIGITAL TOMOSYNTHESIS BILATERAL W CAD Routine 01/26/2024 12:01 PM EST Mass of upper outer quadrant of right breast COLONOSCOPY 01/14/2023 9:24 AM EST UPPER GI ENDOSCOPY 12/13/2022 7: 32 AM EST HEPATITIS C ANTIBODY Routine 10/28/2022 8:43 AM EST Elevated liver function tests Thrombocytopenia Fatty (change of) liver, not elsewhere classified HEMOGLOBIN A1C Routine 11/24/2020 10:43 AM EST Diabetes mellitus without complication from Last 3 Months or Most Recently Relevant to Health Maintenance Results * Lipid Panel (06/15/2024 2:00 PM EDT) Total Cholesterol 150 0 - 200 mg/dL 06/16/2024 12:02 AM EDT [facility] Triglycerides 113 0 - 150 mg/dL 06/16/2024 12:02 AM EDT [facility] HDL Cholesterol 51 40 - 60 mg/dL 06/16/2024 12:02 AM EDT [facility] LDL Cholesterol 79 0 - 100 mg/dL 06/16/2024 12:02 AM EDT [facility] VLDL Cholesterol 20 5 - 40 mg/dL 06/16/2024 12:02 AM EDT [facility] LDL/HDL Ratio 1.50 06/16/2024 12:02 AM EDT [facility] Blood Venipuncture / Unknown 06/15/2024 2:00 PM EDT 06/15/2024 3:40 PM EDT Narrative [facility] - 06/16/2024 12:02 AM EDT Cholesterol Reference Ranges (U.S. Department of Health and Human Services ATP III Classifications) Desirable <200 mg/dL Borderline High 200-239 mg/dL High Risk >240 mg/dL Triglyceride Reference Ranges (U.S. Department of Health and Human Services ATP III Classifications) Normal <150 mg/dL Borderline High 150-199 mg/dL High 200-499 mg/dL Very High >500 mg/dL HDL Reference Ranges (U.S. Department of Health and Human Services ATP III Classifications) Low <40 mg/dl (major risk factor for CHD) High >60 mg/dl ('negative' risk factor for CHD) LDL Reference Ranges (U.S. Department of Health and Human Services ATP III Classifications) Optimal <100 mg/dL Near Optimal 100-129 mg/dL Borderline High 130-159 mg/dL High 160-189 mg/dL Very High >189 mg/dL Marbella Briceño MD LAB BLOOD ORDERABLES Final Resul t [facility]
[address] [place] [address], * Mammo Diagnostic Digital Tomosynthesis Bilateral With CAD (01/26/2024 12:01 PM EST) Anatomical Region Laterality Modality Breast Bilateral Mammography 01/26/2024 4:31 PM EST Impressions 01/26/2024 4:36 PM EST In the right breast upper outer quadrant, palpable area, there are 2 areas of hyperechoic masses, likely focal fat necrosis. BI-RADS CATEGORY: 3 , PROBABLY BENIGN FINDING(S). RECOMMENDATION: Right breast diagnostic ultrasound in 6 months. Annual screening mammography of the left breast. Images personally reviewed, interpreted and dictated by ANDREY Vicente. This report was signed and finalized on 01/26/2024 4:36 PM by ANDREY Vicente. Narrative 01/26/2024 4:36 PM EST DIAGNOSTIC BILATERAL BREAST DIGITAL MAMMOGRAPHY DIAGNOSTIC RIGHT BREAST ULTRASOUND CLINICAL INDICATION: Mass of right breast, patient came for screening and lump was discovered by technologist; N63.11-Unspecified lump in the right breast, upper outer quadrant Abnormal screening mammogram. TECHNIQUE: Bilateral breast MLO and CC views were obtained with digital acquisitions with 3-D Tomosynthesis. The study was read with the assistance of CAD. Directed sonographic evaluation through the region of interest in the right and left breast was performed.. COMPARISON: Mammography dated 10/21/2022. FINDINGS: Mammography: There are scattered areas of fibroglandular density. Right breast: Finding 1: There is a palpable marker in the right breast upper outer quadrant with underlying focal asymmetry. Further evaluation with ultrasound was performed. Diffuse punctate and coarse calcifications in the right breast. Prior surgical scar in the upper right breast. No new suspicious microcalcifications, or architectural distortion. Left breast: Stable biopsy clips x3 in the left breast. Diffuse punctate and coarse calcifications in the left breast. No new suspicious mass, microcalcifications, or architectural distortion. No significant interval change. Ultrasound-right: Homogeneous background echotexture-fibroglandular. Finding 1: At 10 o'clock position, there is a 17 x 6 x 17 mm hyperechoic mass with internal cystic areas, which is oval, parallel, indistinct margins, echogenicity somewhat comparable to the subcutaneous fat. This finding is compatible with focal fat necrosis. Finding 2: At 11 o'clock position, there is 22 x 10 x 28 mm hyperechoic mass with internal cystic areas, which is oval, parallel, indistinct margins, and echogenicity somewhat comparable to the subcutaneous fat. This finding is compatible with focal fat necrosis. Taina Lyles SHUTDOWN PLANNER IMG MAMMOGRAPHY ORDERABLES Fin al Result * COLONOSCOPY (01/14/2023 9:24 AM EST) Lori Rm MD INTERFACE NEEDS Final Re sult * UPPER GI ENDOSCOPY (12/13/2022 7:32 AM EST) Lori Rm MD INTERFACE NEEDS Final Re sult * Hepatitis C Antibody (10/28/2022 8:43 AM EST) Hepatitis C Ab Non-Reacti ve Non-Reacti ve 10/28/2022 7:36 PM EST [facility] Blood Venipuncture / Unknown 10/28/2022 8:43 AM EST 10/28/2022 9:21 AM EST Narrative [facility] - 10/28/2022 7:36 PM EST Results may be falsely decreased if patient taking Biotin. us Mira Amin APRN LAB BLOOD ORDERABLES Final Result [facility]
[address] [place] [address], [place] [phone] from Last 3 Months or Most Recently Relevant to Health Maintenance Insurance MEDICAID [employer] [employer] MEDICARE ADVANTAGE PPO Advance Directives * CPR (Attempt to Resuscitate) (Latest Code Status on File) Date Activated Date Inactivated Comments 11/30/2022 11:52 PM 12/02/2022 6:26 PM Question Answer Comments Code Status (Patient has no pulse and is not breathing): CPR (Attempt to Resuscitate) Medical Interventions (Patie nt has pulse or is breathing): Full Support Level Of Support Discussed With: Patient Care Teams Baby Stroller Rental Clerk Relationship Specialty Start Date End Date Taina Lyles, ADRI PCP - General Nurse Practitioner 12/30/22
--- OUTSIDE RECORDS SUMMARY | 2025-06-23 17:43 | XMS_ITS ---
Author Organization [facility] Address [address] [id number] Care Team Providers Care Office Machine Technician Name Role Phone Lea Fernando Unavailable [phone] Rachel Ray BAG PATCHER Unavailable [phone] Alvarez Zimmer MD Primary Care Provider [phone] Tamera Isabel LPN Unavailable Unavailabl e Annual Wellness Status:Active (Active) Start date:05/29/2025 Enrollment date:05/29/2025 Enrollment reason:Identified using claims or encounter data Case Team Name Relationship Phone Tamera Isabel LPN(Responsible Staff) Licensed Practical Nurse Continued Care and Services Coordination
--- OUTSIDE RECORDS SUMMARY | 2025-06-23 17:43 | XMS_ITS | Encounter Summary ---
Author Organization Healthcare Address [address] [place] [address] Care Team Providers Care Shaker Repairer Name Role Phone Lea Fernando Unavailable [phone] Rachel Ray ADMINISTRATIVE OFFICE CLERK Unavailable [phone] Alvarez Zimmer MD Primary Care Provider [phone] Tamera Isabel LPN Unavailable Unavailabl e Reason for Visit * Reason Onset Date Comments Med Refill 06/23/2025 Encounter Details Date Type Department Care Team (Late st Contact Info) Description 06/23/2025 Refill [facility] [address] [facility] [address], [address] [place] [address] Ar Dominique MD [address] [facility] [address] [place] [address] Vitamin D deficiency Social History Tobacco Use Types Packs/Day Years [...] 01/10/2025 How often do you attend [facility] or [facility] services? Patient unable to answer [...] more drinks on one occasion? Never 06/05/2025 [facility] - Occupational [...] drink first t kennedy in the morning (EYE-ELECTRONIC ASSEMBLER GROUP LEADER) to steady your nerves or to get [...] Upcoming Encounters Date Type Department Care Team ([facility] st Contact Info) Description 06/27/2025 9:30 AM EDT Appointment [facility] [address] [place] [address] 06/27/2025 10:30 AM EDT Appointment [facility] [address] [place] [address] 07/04/2025 10:30 AM EDT Appointment [facility] [address] [place] [address] 07/04/2025 11:30 AM EDT Appointment [facility] [address] [place] [address] 07/09/2025 2:40 PM EDT Office Visit [facility] [address] [facility] [address], [address] [place] [address] Ar Dominique MD [address] [address] [facility] [address] [facility] [address] [place] [address] 07/11/2025 10:30 AM EDT Appointment [facility] [address] [place] [address] 07/11/2025 11:30 AM EDT Appointment [facility] [address] [place] [address] 07/18/2025 10:30 AM EDT Appointment [facility] [address] [place] [address] 07/18/2025 11:30 AM EDT Appointment [facility] [address] [place] [address] 07/25/2025 10:30 AM EDT Appointment [facility] [address] [place] [address] 07/25/2025 11:30 AM EDT Appointment [facility] [address] [place] [address] 07/31/2025 9:00 AM EDT Office Visit [facility] [address] [place] [address] Alvarez Zimmer MD [address] [place] [address] 08/20/2025 9:30 AM EDT Clinical Support [facility] [address] [place] [address] 08/20/2025 10:30 AM EDT Social Work [facility] [address] [place] [address] Deysi Ortega [place], [place] [id number] 08/20/2025 11:00 AM EDT Office Visit [facility] [address] [place] [address] Jude Duque MD [address] [place] [address] 10/30/2025 1:20 PM EST Office Visit [facility] [address] [place] [address] Sharif Moreno, DPNicole [address] [place] [address] documented as of this encounter Visit Diagnoses Diagnosis Vitamin D deficiency documented in this encounter Additional Health Concerns Assessment Noted Time PHQ-9 Depression Total Score: 6 06/11/20 25 10:59 AM EDT A fall risk assessment has been complete d for the patient 06/11/2025 10:59 AM EDT A Body Mass Index follow-up plan has been documented for the patient 06/20/2025 2:10 PM EDT documented as of this encounter Care Teams Shaker Repairer Relationship Specialty Start Date End Date Alvarez Zimmer MD [address] [place] [address] PCP - General Family Medicine 12/07/24 Lea Fernando [address] [place] [address] Key Account Director Endocrinology 08/29/24 Rachel Ray APRN [address] [facility] [address] [place] [address] Nurse Practitioner Gastroenterology 09/24/24 Tamera Isabel, ANIMAL SERVICES OFFICER VALUE-BASED TRANSFORMATION PROGRAM Licensed Practical Nurse 05/29/25 documented as of this encounter
--- OUTSIDE RECORDS SUMMARY | 2025-06-23 17:43 | XMS_ITS | Encounter Summary ---
Author Organization [employer] ([place], [place], [place], [place]) Address [address] [place] [address] Care Team Providers Care Field Installer Name Role Phone Tiana Lyles ADRI Primary Care Provider [phone] Encounter Details Date Type Department Care Team (Late st Contact Info) Description 07/07/2021 Transcribed Document [facility] Family Medicine [facility] [place] [address] ProviderWilliam MD [address] [place] [address] Social History Tobacco Use Types Packs/Day Years Used Date Smoking Tobacco: Never Assessed Comments Unknown Sex and Gender Information Value Date Recorded Sex Assigned at Not on file Legal Sex Female 12:21 PM CDT Gender Identity Not on file Sexual Orientation Not on file documented as of this encounter Miscellaneous Notes * Cerner Conversion Note - William Reyes MD - 07/07/2021 4:13 PM CDT Final Discharge Planning Entered On: 07/07/2021 16:13 EDT Performed On: 07/07/2021 16:13 EDT by CHARLES CUEVAS Mkt Principal Archaeologist-Utilization Mgt Final Discharge Planning Discharge Arrangements : Patient Post-Acute Information Patient Name: MONIKA ZIMMER Gender: Female : 64 Age: 60 Years No Post-Acute Placement(s) Listed No Post-Acute Service(s) Listed No Curaspan Referral(s) Listed Discharge To Care Management : Home/Residential/[facility] or Self Care -01 CHARLES CUEVAS Mkt Principal Archaeologist-Utilization Mgt - 07/07/2021 16:13 EDT Electronically signed by Marco Meyers Conversion Communicable Disease Specialist Cerner at 03/07/2023 9:44 AM CDT documented in this encounter Plan of Treatment Not on file documented as of this encounter Visit Diagnoses Not on filedocumented in this encounter Care Teams Field Installer Relationship Specialty Start Date End Date Taina Lyles, CLASP MACHINE OPERATOR [address] [place] [address] PCP - General Nurse Practitioner 06/15/23 documented as of this encounter
--- OUTSIDE RECORDS SUMMARY | 2025-06-23 17:43 | XMS_ITS | Encounter Summary ---
Author Organization [employer] ([place], [place], [place], [place]) Address [address] [place] [address] Care Team Providers Care Customer Service Supervisor Name Role Phone Adarshfaith Taina Burt APRN Primary Care Provider Reason for Referral * Consultation (Routine) - Closed Specialty Diagnoses / Procedures Referred By Contac t Referred To Contact Behavioral Health / Psychiatry Diagnoses Memory loss Provider, Not In System [place] Referral ID Status Reason Start Date Expiration Date V isits Requested Visits Authorized [id number] Closed Specialty Services Required 07/08/2023 01/04/2024 1 1 Encounter Details Date Type Department Care Team (Late st Contact Info) Description 07/08/2023 Outside Orders [facility] Central Scheduling [address] [place] [address] Lashell Fermin APRN [address] [facility] [address] [place] [address] Memory loss (Primary Dx) Social History Tobacco Use Types [...] Date Beau rded Speak language other than Turkmen at home Not on file 12/01/2023 Want [...] as of this encounter Plan of Treatment Scheduled Referrals Name Type Priority Associated Diagnoses Order Schedule Ambulatory referral to Behavioral Health Outpatient Referral Routine Memory loss Expected: 07/08/2023, Expires: 07/08/2024 documented as of this encounter Visit Diagnoses Diagnosis Memory loss- Primary documented in this encounter Care Teams Customer Service Supervisor Relationship Specialty Start Date End Date Taina Lyles, CALL WORKER [address] [place] [address] PCP - General Nurse Practitioner 06/15/23 documented as of this encounter
--- OUTSIDE RECORDS SUMMARY | 2025-06-23 17:43 | XMS_ITS | Encounter Summary ---
Author Organization [facility] Address [address] [place] [address] Care Team Providers Care Plexiglas Former Name Role Phone AyahTor Lea Clarke Unavailable [phone] Rachel Ray WILDLIFE CONSERVATION OFFICER Unavailable [phone] Alvarez Zimmer MD Primary Care Provider [phone] Tamera Isabel SPECIMEN BOSS Unavailable Unavailabl e Reason for Visit * Reason Onset Date Comments Med Refill 05/21/2025 Encounter Details Date Type Department Care Team (Late st Contact Info) Description 05/21/2025 Refill [facility] [address] [place] [address] Alvarez Zimmer MD [address] [place] [address] Social History Tobacco Use Types [...] do you attend [facility] or scientologist services? Patient unable to answer 01/10/2025 Do you belong to any clubs o r organizations such as sabianism groups, unions, fraternal or athletic groups, or [...] Recorded Patient Health Questionnaire-2 Score 1 05/07/2025 [facility] - Occupational [...] No 03/06/2025 Housing Stability Vital Sign Answer Raejsh e Recorded In the last 12 months, [...] time in the past 12 m [facility], were you homeless or living in [...] drink first t kennedy in the morning (EYE-WINDOW DECORATOR) to steady your nerves or to get [...] Upcoming Encounters Date Type Department Care Team ([facility] Contact Info) Description 06/27/2025 9:30 AM EDT Appointment [facility] [address] [place] [address] 06/27/2025 10:30 AM EDT Appointment [facility] [address] [place] [address] 07/04/2025 10:30 AM EDT Appointment [facility] [address] [place] [address] 07/04/2025 11:30 AM EDT Appointment [facility] [address] [place] [address] 07/09/2025 2:40 PM EDT [facility] [address], [address] [place] [address] Ar Dominique MD [address] [place] [address] 07/11/2025 10:30 AM EDT Appointment [facility] [address] [place] [address] 07/11/2025 11:30 AM EDT Appointment [facility] [address] [place] [address] 07/18/2025 10:30 AM EDT Appointment [facility] [address] [place] [address] 07/18/2025 11:30 AM EDT Appointment [facility] [address] [place] [address] 07/25/2025 10:30 AM EDT Appointment [facility] [address] [place] [address] 07/25/2025 11:30 AM EDT Appointment [facility] [address] [place] [address] 07/31/2025 9:00 AM EDT Office Visit [facility] [address] [place] [address] Alvarez Zimmer MD [address] [place] [address] 08/20/2025 9:30 AM EDT Clinical Support [facility] [address] [place] [address] 08/20/2025 10:30 AM EDT Social Work [facility] [address] [place] [address] [place] [address] 08/20/2025 11:00 AM EDT Office Visit [facility] [address] [place] [address] Jude Duque MD [address] [place] [address] 10/30/2025 1:20 PM EST Office Visit [facility] Endocrinology [address] [place] [address] Sharif Moreno, DPM [address] [facility] [address] [place] [address] documented as of this encounter [...] documented as of this encounter Care Teams Plexiglas Former Relationship Specialty Start Date End Date [place] [address] PCP - General Family Medicine 12/07/24 Lea Fernando [address] [facility] [address] [place] [address] Medical Microbiologist Endocrinology 08/29/24 Rachel Ray APRN [address] [facility] [address] [place] [address] Nurse Practitioner Gastroenterology 09/24/24 Tamera Isabel LPN VALUE-BASED TRANSFORMATION PROGRAM Licensed Practical Nurse 05/29/25 documented as of this encounter
--- OUTSIDE RECORDS SUMMARY | 2025-06-23 17:43 | XMS_ITS | Encounter Summary ---
Author Organization [facility] Address [address] [place] [address] Care Team Providers Care Hand Bunch Maker Name Role Phone Wilma Howard Ambar RUSH Primary Care Provider [phone] Lea Fernando Unavailable [phone] Rachel Ray PERSONNEL WORKER Unavailable [phone] Tania Lyles PERSONNEL WORKER Primary Care Provider Monique Tapia BREEDING TECHNICIAN Unavailable Unavailable Alvarez Zimmer MD Primary Care Provider [phone] Shaniqua Trevino BREEDING TECHNICIAN Unavailable Unavailable Tamera Isabel BREEDING TECHNICIAN Unavailable Unavailabl e Reason for Visit * Reason Comments Med Refill Encounter Details Date Type Department Care Team (Late st Contact Info) Description 07/28/2021 [facility] [address] [place] [address] Deysi Antonio MD [address] [facility] [address] [place] [address] Social History Tobacco Use Types [...] PM EDT documented as of this encounter Plan of Treatment Upcoming Encounters Date Type Department Care Team ([facility] st Contact Info) Description 06/27/2025 9:30 AM EDT Appointment [facility] [address] [place] [address] 06/27/2025 10:30 AM EDT Appointment [facility] [address] [place] [address] 07/04/2025 10:30 AM EDT Appointment [facility] [address] [place] [address] 07/04/2025 11:30 AM EDT Appointment [facility] [address] [place] [address] 07/09/2025 2:40 PM EDT Office Visit [facility] [address] [facility], [address] [place] [address] Ar Dominique MD [address] [place] [address] 07/11/2025 10:30 AM EDT Appointment [facility] [address] [place] [address] 07/11/2025 11:30 AM EDT Appointment [facility] [address] [place] [address] 07/18/2025 10:30 AM EDT Appointment [facility] [address] [place] [address] 07/18/2025 11:30 AM EDT Appointment [facility] [address] [place] [address] 07/25/2025 10:30 AM EDT Appointment [facility] [address] [place] [address] 07/25/2025 11:30 AM EDT Appointment [facility] [address] [place] [address] 07/31/2025 9:00 AM EDT Office Visit [facility] [address] [place] [address] Alvarez Zimmer MD [address] [place] [address] 08/20/2025 9:30 AM EDT Clinical Support [facility] [address] [place] [address] 08/20/2025 10:30 AM EDT Social Work [facility] [place] [address] [place] [address] De[address] [place], [place] [address] 08/20/2025 11:00 AM EDT Office Visit [facility] [place] [address] [place] [address] Jude Duque MD [address] [place] [address] 10/30/2025 1:20 PM EST Office Visit [facility] Endocrinology [address] [place] [address] Sharif Moreno, DPNicole [address] [place] [address] documented as of this encounter [...] as of this encounter Care Teams Hand Bunch Maker Relationship Specialty Start Date End Date Wilma Howard, PERSONNEL WORKER [address] [place] [address] PCP - General 04/03/21 09/30/24 Taina Lyles, PERSONNEL WORKER [address] [place] [address] PCP - General 10/01/24 12/06/24 Alvarez Zimmer MD [address] [place] [address] PCP - General Family Medicine 12/07/24 Lea Fernando [address] [place] [address] Manager New Product Endocrinology 08/29/24 Rachel Ray, PERSONNEL WORKER [address] [place] [address] Nurse Practitioner Gastroenterology 09/24/24 Monique Tapia LPN VALUE-[employer]ED [place] [address] TCM Nurse 11/28/24 12/28/24 Shaniqua Trevino LPN TCM Nurse 01/15/25 02/14/25 Tamera Isabel LPN VALUE-BASED TRANSFORMATION PROGRAM Licensed Practical Nurse 05/29/25 documented as of this encounter
--- OUTSIDE RECORDS SUMMARY | 2025-06-23 17:43 | XMS_ITS | Encounter Summary ---
Author Organization [employer] ([place], [place], [place], [place]) Address [address] [place] [address] Care Team Providers Care Mail Caller Name Role Phone Taina Lylse SLACKLINE OPERATOR Primary Care Provider [phone] Encounter Details Date Type Department Care Team (Late st Contact Info) Description 07/08/2021 Transcribed Document [facility] [place] [address] ProviderWilliam MD [address] [place], [place] [address] Social History Tobacco Use Types Packs/Day Years Used Date Smoking Tobacco: Never Assessed Comments Unknown Sex and Gender Information Value Date Recorded Sex Assigned at Not on file Legal Sex Female 12:21 PM CDT Gender Identity Not on file Sexual Orientation Not on file documented as of this encounter Miscellaneous Notes * Cerner Conversion Note - William Reyes MD - 07/08/2021 9:31 AM CDT Self Denial Entered On: 07/08/2021 9:31 EDT Performed On: 07/08/2021 9:31 EDT by CHRISSIE SONG RN Self Denial Admitting Provider Notified : RICARDO MOLINA MD-CAR Date and Time Admitting Provider Notified : 07/08/2021 9:31 EDT Date and Time Letter Sent to Patient : 07/08/2021 9:31 EDT Date and Time Billing Notified : 07/08/2021 9:31 EDT Physician Advisor : JC LEPE (REF)ARMIDA JENNIFER E., RN - 07/08/2021 9:31 EDT Electronically signed by [facility] Conversion Outreach Analyst Cerner at 03/07/2023 9:46 AM CDT documented in this encounter Plan of Treatment Not on file documented as of this encounter Visit Diagnoses Not on filedocumented in this encounter Care Teams Mail Caller Relationship Specialty Start Date End Date Taina Lyles, SLACKLINE OPERATOR [address] [place] [address] PCP - General Nurse Practitioner 06/15/23 documented as of this encounter
--- OUTSIDE RECORDS SUMMARY | 2025-06-23 17:43 | XMS_ITS | Encounter Summary ---
Author Organization [facility], [facility] Address [address] [place] [phone] Phone Care Team Providers Care Compliance Representative Dealer Name Role Phone Taina Lyles Primary Care Provider [phone] Reason for Visit * Reason Comments Med Refill Encounter Details Date Type Department Care Team (Late st Contact Info) Description 10/17/2021 Refill [facility], [address] [address] [place], [place] Social History Tobacco Use Types Packs/Day Years [...] on filedocumented in this encounter Care Teams Compliance Representative Dealer Relationship Specialty Start Date End Date Taina Lyles [address] [place] [address] PCP - General 05/02/23 documented as of this encounter
--- OUTSIDE RECORDS SUMMARY | 2025-06-23 17:43 | XMS_ITS | Encounter Summary ---
Author Organization [employer] ([place], [place], [place], [place]) Address [address] [place] [address] Care Team Providers Care Green Chain Offbearer Name Role Phone Taina Lyles APRN Primary Care Provider [phone] Encounter Details Date Type Department Care Team (Late st Contact Info) Description 09/15/2021 Transcribed Document [facility] [place] Medicine [address] [place] [address] ProviderWilliam MD [address] [place] [address] Social History Tobacco Use Types Packs/Day Years Used Date Smoking Tobacco: Never Assessed Comments Unknown Sex and Gender Information Value Date Recorded Sex Assigned at Not on file Legal Sex Female 12:21 PM CDT Gender Identity Not on file Sexual Orientation Not on file documented as of this encounter Miscellaneous Notes * Cerner Conversion Note - William Reyes MD - 09/15/2021 3:29 PM CDT [address] [address] OPERATIVE REPORT PATIENT IDENTIFICATION: MONIKA ZIMMER (Female - 1960) ACCOUNT / UNIT NUMBER: [id number] / [id number] PRIMARY CARE PHYSICIAN: ERYN PARKINSON APRN PATIENT LOCATION: [facility] ADMIT DATE / TIME: 09/15/21 0646 DISCHARGE DATE / TIME: DICTATED: 09/15/21 1129 by VOLODYMYR VILLARREAL TRANSCRIBED: 09/15/21 1142 by MAIA IMPORTED: 09/15/21 1149 CC: ERYN PARKINSON APRN; VOLODYMYR VILLARREAL\R\ DATE OF PROCEDURE: 09/15/2021 SURGEON: Volodymyr Villarreal MD PREOPERATIVE DIAGNOSES: 1. Urge urinary incontinence. 2. Overactive bladder. 3. Interstitial cystitis. POSTOPERATIVE DIAGNOSES: 1. Urge urinary incontinence. 2. Overactive bladder. 3. Interstitial cystitis. PROCEDURES PERFORMED: 1. Botox injection of bladder (200 international units). 2. Hydrodistention of bladder x2. 3. Urethral dilation. 4. Cystogram. 5. Bilateral retrograde pyelogram. 6. Fulguration of Hunner ulcer. 7. Bladder biopsy. 8. Intravesical instillation of DMSO. ANESTHESIA: LMA. HISTORY: Monika Zimmer is a 61-year-old white female with overactive bladder, urge urinary incontinence, obesity, and interstitial cystitis, who presents for Botox injection of bladder and hydrodistention. Options, risks, and benefits were discussed. The patient understands and wished to proceed. DESCRIPTION OF PROCEDURE: The patient was taken to the operating room, placed in dorsal lithotomy position, prepped and draped in the usual sterile fashion. External genitalia obese. Urethra normal with some hypermobility. Internal urethra normal. Bladder with increased capillary networks. No masses or lesions. Urine culture was taken. We shot bilateral retrograde pyelogram, did cystogram and ureters were normal. No masses or lesions. Bladder was normal. We did hydrodistention of bladder x2, and saw diffuse glomerulations consistent with interstitial cystitis. We saw a Hunner ulcer on the posterior left bladder wall, we fulgurated, and took a random bladder biopsy. We drained the bladder and then did Botox injection of bladder with 31 mL injections, divided throughout the bladder wall for a total of 200 international units. We then dilated the urethra and instilled DMSO and lidocaine in the bladder to dwell for next hour. I will see her in 2 weeks to see how she is progressing. I have instructed the patient that it may take up 2 weeks to see the full effect of Botox. The patient instructed to work on weight loss and follow her diet, avoiding caffeine or nicotine. /[id number] Dictated By: VOLODYMYR VILLARREAL E-Signed By: ALDO 1129 1142 [\R\ rep ct labl] [\R\ rep ct ivnm] Medical Disclaimer: This report is to be considered preliminary until reviewed and signed. Electronically signed by Maddie Meyers Conversion Forest And Conservation Worker Cerner at 02/21/2023 1:45 PM CDT documented in this encounter Plan of Treatment Not on file documented as of this encounter Visit Diagnoses Not on filedocumented in this encounter Care Teams Green Chain Offbearer Relationship Specialty Start Date End Date Taina Lyles, ADRI [address] [place] [address] PCP - General Nurse Practitioner 06/15/23 documented as of this encounter
--- OUTSIDE RECORDS SUMMARY | 2025-06-23 17:44 | XMS_ITS | Encounter Summary ---
Author Organization Healthcare Address [address] [place] [address] Care Team Providers Care Bankruptcy Attorney Name Role Phone Lea Fernando Unavailable [phone] Rachel Ray REFINER OPERATOR Unavailable [phone] Alvarez Zimmer MD Primary Care Provider [phone] Tamera Isabel LPN Unavailable Unavailabl e Encounter Details Date Type Department Care Team (Latest Contact Info) Description 06/12/2025 Travel Social History Tobacco Use Types Packs/Day [...] week 01/10/2025 How often do you attend [facility] or uatsdin services? Patient unable to answer 01/10/2025 Do [...] a care home (including now)? No 03/06/2025 Humiliation, Afraid, [...] often do you attend chur ch or uatsdin services? Never 05/29/2025 Do you belong to [...] more drinks on one occasion? Never 06/05/2025 [facility] - Occupational Stress Questionnaire [...] in a care home (including now)? No 05/29/2025 CAGE ASSESSMENT [...] drink first t kennedy in the morning (EYE-PAPER BAG INSPECTOR) to steady your nerves or to [...] Appointment [facility] Interventional Radiology [address] [place] [address] 06/27/2025 10:30 AM EDT Appointment [facility] Radiology [address] [place] [address] 07/04/2025 10:30 AM EDT Appointment [facility] Inter[facility] Radiology [address] [place] [address] 07/04/2025 11:30 AM EDT Appointment [facility] Interventional Radiology [address] [place] [address] 07/09/2025 2:40 PM EDT Office Visit [facility] Bone & Mineral Metabolism [address], [address] [place] [address] Ar Dominique MD [address] [place] [address] 07/11/2025 10:30 AM EDT Appointment [facility] Interventional Radiology [address] [place] [address] 07/11/2025 11:30 AM EDT Appointment [facility] Radiology [address] [place] [address] 07/18/2025 10:30 AM EDT Appointment [facility] Interventional Radiology [address] [place] [address] 07/18/2025 11:30 AM EDT Appointment [facility] Inter[facility] Radiology [address] [place] [address] 07/25/2025 10:30 AM EDT Appointment [facility] Inter[facility] Radiology [address] [place] [address] 07/25/2025 11:30 AM EDT Appointment [facility] Inter[facility] Radiology [address] [place] [address] 07/31/2025 9:00 AM EDT Office Visit [address] [address] Alvarez Zimmer MD [address] [place] [address] 08/20/2025 9:30 AM EDT Clinical Support [facility] [place] [address] [place] [address] 08/20/2025 10:30 AM EDT Social Work [facility] [place] [address] [place] [address] [place] [address] 08/20/2025 11:00 AM EDT Office Visit [facility] [address] [place] [address] Jude Duque MD [address] [place] [address] 10/30/2025 1:20 PM EST Office Visit [facility] Endocrinology [address] [place] [address] Sharif Moreno, DPNicole [address] [place] [address] documented as of this encounter [...] documented as of this encounter Care Teams Bankruptcy Attorney Relationship Specialty Start Date End Date Alvarez Zimmer MD [address] [place] [address] PCP - General Family Medicine 12/07/24 Lea Fernando [address] [facility] [address] [place] [address] Pricing Associate Endocrinology 08/29/24 Rachel Ray APRN [address] [facility] [address] [place] [address] Nurse Practitioner Gastroenterology 09/24/24 Tamera Isabel LPN VALUE-BASED TRANSFORMATION PROGRAM Licensed Practical Nurse 05/29/25 documented as of this encounter
--- OUTSIDE RECORDS SUMMARY | 2025-06-23 17:44 | XMS_ITS | Encounter Summary ---
Author Organization [facility] Address [address] [place] [address] Care Team Providers Care Consulting Project Director Name Role Phone Lea Fernando Unavailable [phone] Rachel Ray CABLE TOOL OPERATOR Unavailable [phone] Alvarez Zimmer MD Primary Care Provider [phone] Tamera Isabel LIVE SOURCE OPERATOR Unavailable Unavailabl e Encounter Details Date Type Department Care Team (Late st Contact Info) Description 06/10/2025 Results Follow-Up [facility] [address] [place] [address] Alvarez Zimmer MD [address] [place] [address] Social History Tobacco Use Types [...] 01/10/2025 How often do you attend [facility] or baptism services? Patient unable to answer 01/10/2025 Do you belong to any clubs o r organizations such as mandaen groups, unions, fraternal or athletic groups, or [...] place to sleep or slept in a usp (including now)? Yes 08/29/2024 PHQ-9 Answer Date [...] any time in the past 12 m [facility], were you homeless or living in a usp (including now)? No 03/06/2025 Humiliation, Afraid, Rape, [...] How often do you attend chur or baptism services? Never 05/29/2025 Do you belong to any clubs o r organizations such as mandaen groups, unions, fraternal or athletic groups, or [...] more drinks on one occasion? Never 06/05/2025 [facility] Occupational Stress Questionnaire Answer Date [...] any time in the past 12 m [facility], were you homeless or living in a usp (including now)? No 05/29/2025 CAGE ASSESSMENT Answer [...] drink first t kennedy in the morning (EYE-TRIM MOUNTER) to steady your nerves or to get [...] Upcoming Encounters Date Type Department Care Team ([facility] st Contact Info) Description 06/27/2025 9:30 AM EDT Appointment [facility] Interventional Radiology [address] [place] [address] 06/27/2025 10:30 AM EDT Appointment [facility] Interventional Radiology [address] [place] [address] 07/04/2025 10:30 AM EDT Appointment [facility] Interventional Radiology [address] [place] [address] 07/04/2025 11:30 AM EDT Appointment [facility] Interventional Radiology [address] [place] [address] 07/09/2025 2:40 PM EDT Office Visit Professional [facility] Bone & Mineral Metabolism [address] [facility], [address] [place] [address] Ar Dominique MD [address] [place] [address] 07/11/2025 10:30 AM EDT Appointment [facility] Interventional Radiology [address] [place] [address] 07/11/2025 11:30 AM EDT Appointment [facility] Inter[facility] Radiology [address] [place] [address] 07/18/2025 10:30 AM EDT Appointment [facility] Inter[facility] Radiology [address] [place] [address] 07/18/2025 11:30 AM EDT Appointment [facility] Inter[facility] Radiology [address] [place] [address] 07/25/2025 10:30 AM EDT Appointment [facility] Interventional Radiology [address] [place] [address] 07/25/2025 11:30 AM EDT Appointment [facility] Interventional Radiology [address] [place] [address] 07/31/2025 9:00 AM EDT Office Visit [facility] [address] [place] [address] Alvarez Zimmer MD [address] [place] [address] 08/20/2025 9:30 AM EDT Clinical Support [facility] [place] [address] [place] [address] 08/20/2025 10:30 AM EDT Social Work [facility] [address] [place] [address] Deysi Ortega [place], [place] [phone] 08/20/2025 11:00 AM EDT Office Visit [facility] [address] [place] [address] Jude Duque MD [address] [place] [address] 10/30/2025 1:20 PM EST Office Visit [facility] Endocrinology [address] [place] [address] Sharif Moreno, DPNicole [address] [place] [address] documented as of this encounter Visit Diagnoses [...] documented as of this encounter Care Teams Consulting Project Director Relationship Specialty Start Date End Date Alvarez Zimmer MD [address] [place] [address] PCP - General Family Medicine 12/07/24 Lea Fernando [address] [facility] [address] [place] [address] Metal Cnc Operator Endocrinology 08/29/24 Rachel Ray APRN [address] [place] [address] Nurse Practitioner Gastroenterology 09/24/24 Tamera Isabel LPN VALUE-BASED TRANSFORMATION PROGRAM Licensed Practical Nurse 05/29/25 documented as of this encounter
--- OUTSIDE RECORDS SUMMARY | 2025-06-23 17:44 | XMS_ITS | Encounter Summary ---
Author Organization [employer] ([place], [place], [place], [place]) Address [address] [place] [address] Care Team Providers Care Dope Weigh Operator Name Role Phone Taina Lyles APRN Primary Care Provider [phone] Reason for Visit * Reason Comments New Med Request Encounter Details Date Type Department Care Team (Late st Contact Info) Description 12/10/2024 [facility] Primary Care - [address] [place] [address] Anali Benavidez, DENTURE PACKER [address] [address] Social History Tobacco Use Types Packs/Day Years [...] Date Beau rded Speak language other than Kyrgyz at home Not on file 12/01/2023 Want [...] on filedocumented in this encounter Care Teams Dope Weigh Operator Relationship Specialty Start Date End Date Taina Lyles, DENTURE PACKER [address] [place] [address] PCP - General Nurse Practitioner 06/15/23 documented as of this encounter
--- OUTSIDE RECORDS SUMMARY | 2025-06-23 17:44 | XMS_ITS | Clinical Summary ---
Author Organization [employer] ([place], [place], [place]) Address [address] [place] [address] Care Team Providers Care Funeral Counselor Name Role Phone Wilfredolayla Taina Burt APRN Primary Care Provider [phone] Allergies No known active allergies Medications * This document contains information received from the source organization and may not represent a complete record from that organization. Accu-Chek Guide test strips Strp 03/27/2023 Active insulin glargine (LANTUS, SEMGLEE) 100 unit/mL injection Inject 60 Units subcutaneous ly. Active insulin aspart protamine-insul in aspart (NovoLOG MIX 70/30) 100 unit/mL (70-30) Soln injection Inject 0.26 mLs (26 Units total) subcutaneous ly. Active buPROPion HCL, smoking deter, 150 mg Tb12 Take 150 mg by mouth. Active cetirizine (ZyrTEC) 10 MG tablet Take 1 tablet (10 mg total) by mouth daily. Active cyclobenzaprine (FLEXERIL) 5 MG tablet Take 1 tablet (5 mg total) by mouth every night as needed. 06/02/2023 Active vibegron (Gemtesa) 75 mg Tab Take 1 tablet (75 mg total) by mouth. Active ezetimibe (ZETIA) 10 mg tablet Take 1 tablet (10 mg total) by mouth daily. 06/09/2023 Active furosemide (LASIX) 20 MG tablet Take 1 tablet (20 mg total) by mouth daily. 05/03/2023 Active HYDROcodone-caesar taminophen (NORCO 10-325) 10-325 mg per tablet Take 1 tablet by mouth every 4 (four) hours as needed. 05/30/2023 Active lancets (Accu-Chek Softclix Lancets) Misc 08/26/2022 Activ e metFORMIN (GLUCOPHAGE) 1000 MG tablet Take 1 tablet (1,000 mg total) by mouth 2 (two) times daily. 06/08/2023 Active nitroglycerin (NITROSTAT) 0.[address] 1 tablet (0.4 mg total) under the tongue. Active ondansetron (ZOFRAN) 4 MG tablet Take 1 tablet (4 mg total) by mouth. 10/26/2022 Active rosuvastatin (CRESTOR) 10 MG tablet Take 1 tablet (10 mg total) by mouth nightly. 06/09/2023 Active sertraline (ZOLOFT) 50 MG tablet Take 1 tablet (50 mg total) by mouth daily. 12/15/2022 Active tamsulosin (FLOMAX) 0.4 mg Cap 24 hr capsule Take 1 capsule (0.4 mg total) by mouth. Active traZODone (DESYREL) 100 MG tablet Take 1-1.5 tablets (100-150 mg total) by mouth nightly. 05/12/2023 Active ubrogepant (Ubrelvy) 100 mg Tab Take 100 mg by mouth. 03/21/2023 Active zonisamide (ZONEGRAN) 50 MG capsule Take 1 capsule (50 mg total) by mouth nightly. 05/28/2023 Active Active Problems Problem Noted Date Diagnosed Date Diabetes mellitus, type 2 07/01/2023 Social History Tobacco Use Types Packs/Day Years [...] Date Beau rded Speak language other than Albanian at home Not on file 12/01/2023 Want [...] Sign Reading Time Taken Comments Blood Pressure 148/67 07/01/2023 10:35 AM EDT Pulse 90 07/01/2023 10:35 AM EDT Temperature 36.6 C (97.9 F) 07/01/2023 10:35 AM EDT Respiratory Rate 16 07/01/2023 10:35 AM EDT Oxygen Saturation 95% 07/01/2023 10:35 AM EDT Inhaled Oxygen Concentration - - Weight 86.2 kg (190 lb) 07/01/2023 7:28 AM EDT Height 165.1 cm (5' 5 ) 07/01/2023 7:28 AM EDT Body Mass Index 31.62 07/01/2023 7:28 AM EDT Plan of Treatment Health Maintenance Due Date Last Done Comments CT Colonography 1962 Colonoscopy 1962 Colorectal Cancer Screening 1962 Diabetic Kidney Health Evalu ation (KED) 1962 FOBT/FIT 1962 Fit-DNA (Cologuard) 1962 Sigmoidoscopy 1962 Diabetic Eye Exam 1972 Depression Screening (12+) 1974 HIV Screening 1977 Hepatitis C Screening 1980 Pap Smear 1983 Breast Cancer Screening 2002 Pneumococcal 50+ years (2 of 2 - PCV) 08/23/2019 08/23/2018 Respiratory Syncytial Virus (RSV) Adult or (1 - Risk 60-74 years 1-dose series) 2022 Hemoglobin A1C 07/01/2023 Medicare Initial AWV G0438 11/22/2023 Tobacco Cessation Counseling and Screening (12+) 07/01/2024 07/01/2023 COVID-19 VACCINE ( - 2023-2 5 season) 2024 Influenza Vaccine (#1) 2025 9, 08/23/2018, 08/10/2016, Additional history exists Lipid Panel 05/26/2026 05/26/2023, 06/21, 09/09/2020 DTAP/TDAP/TD VACCINES (2 - T d or Tdap) 07/17/2029 07/17/2019 Shingles Vaccine (Zoster) Completed 10/30/2019, Medical Devices Implanted Type Area Provider Education Specialist Device Identifier Shelf Expiration Date Model / Serial / Lot Kt Lead Tined 1201 - [id number] Implanted:Qty: 1 on 07/01/2023 by Rory Villarreal MD at [facility] IMPLANTS N/A: Sacrum [employer]ONICS 1201 / [id number] / Neurostimulator Rechrgble R20 5101 - [id number] Implanted:Qty: 1 on 07/01/2023 by Rory Villarreal MD at [facility] IMPLANTS N/A: Sacrum [employer]ONICS 5101 / [id number] / Procedures Procedure Name Priority Date/Time Associated Diagnosis Comments LIPID PANEL Routine 07/02/2021 4:24 AM EDT from Last 3 Months or Most Recently Relevant to Health Maintenance Results * LIPID PANEL (07/02/2021 4:24 AM EDT) Triglyceride 128 0 - 249 mg/dL 07/02/2021 8:50 AM EDT Cholesterol HDL 28.0 mg/dL 8:50 AM EDT Comment: Desirable > 60 mg/dl Increased Risk < 40 mg/dl Cholesterol Total 76 0 - 199 mg/dL 07/02/2021 8:50 AM EDT Comment: 200 to 239 mg/dL Moderate (borderline) >239 mg/dL High Cholesterol VLDL Calculation 25.6 5.0 - 40.0 mg/dL 07/02/2021 8:50 AM EDT Comment:Calculated by Discer n Rule [id number] Cholesterol LDL Calculation 22.4 0.0 - 99.0 mg/dL 07/02/2021 8:50 AM EDT Comment: DESIRABLE <130 BORDERLINE 130 to 159 HIGH >=160 Cholesterol/HDL Ratio 2.7 0.0 - 3.2 07/02/2021 8:50 AM EDT LDL/HDL Ratio 0.8 0.0 - 3.2 07/02/2021 8:50 AM EDT Blood 07/02/2021 4:24 AM EDT 07/02/2021 8:24 AM EDT [facility] Historical Provider PATHOLOGY/CYTOLOGY ORDE RABLES Final Result [facility] [id number] [phone] from Last 3 Months or Most Recently Relevant to Health Maintenance Insurance [employer] MEDICARE PPO Care Teams Funeral Counselor Relationship Specialty Start Date End Date Taina Lyles APRN [address] [place] [address] PCP - General Nurse Practitioner 06/15/23
--- OUTSIDE RECORDS SUMMARY | 2025-06-23 17:44 | XMS_ITS | Encounter Summary ---
Author Organization Healthcare Address [address] [place] [address] Care Team Providers Care Powder Line Repairer Name Role Phone Lea Fernando Unavailable [phone] Rachel Ray METALIZING SUPERVISOR Unavailable [phone] Alvarez Zimmer MD Primary Care Provider [phone] Tamera Isabel LPN Unavailable Unavailabl e Reason for Visit * Reason Onset Date Comments Med Refill 06/09/2025 Encounter Details Date Type Department Care Team (Late st Contact Info) Description 06/09/2025 Refill [facility] Bone & Mineral Metabolism [address] [facility], [address] [place] [address] Ar Dominique MD [address] [facility] [address] [place] [address] Chronic kidney disease, stage 3b [...] week 01/10/2025 How often do you attend [facility] or druze services? Patient unable to answer 01/10/2025 Do you belong to any clubs o r organizations such as shinto groups, unions, fraternal or athletic groups, or [...] any time in the past 12 m [facility], were you homeless or living [...] How often do you attend chur or druze services? Never 05/29/2025 Do you belong to any clubs o r organizations such as shinto groups, unions, fraternal or athletic groups, or [...] more drinks on one occasion? Never 06/05/2025 [facility] [...] any time in the past 12 m [facility], were you homeless or living [...] drink first t kennedy in the morning (EYE-CHILDCARE PROVIDER) to steady your nerves or to get [...] Appointment [facility] Interventional Radiology [address] [place] [address] 06/27/2025 10:30 AM EDT Appointment [facility] Interventional Radiology [address] [place] [address] 07/04/2025 10:30 AM EDT Appointment [facility] Interventional Radiology [address] [place] [address] 07/04/2025 11:30 AM EDT Appointment [facility] Interventional Radiology [address] [place] [address] 07/09/2025 2:40 PM EDT Office Visit Professional [facility] Bone & Mineral Metabolism [address], [address] [place] [address] Ar Dominique MD [address] [place] [address] 07/11/2025 10:30 AM EDT Appointment [facility] Interventional Radiology [address] [place] [address] 07/11/2025 11:30 AM EDT Appointment [facility] Inter[facility] Radiology [address] [place] [address] 07/18/2025 10:30 AM EDT Appointment [facility] Inter[facility] Radiology [address] [place] [address] 07/18/2025 11:30 AM EDT Appointment [facility] [address] [place] [address] 07/25/2025 10:30 AM EDT Appointment [facility] Radiology [address] [place] [address] 07/25/2025 11:30 AM EDT Appointment [facility] Interventional Radiology [address] [place] [address] 07/31/2025 9:00 AM EDT Office Visit [facility] [address] [place] [address] Alvarez Zimmer MD [address] [place] [address] 08/20/2025 9:30 AM EDT Clinical Support [facility] [place] [address] [place] [address] 08/20/2025 10:30 AM EDT Social Work [facility] [place] [address] [place] [address] Deysi Ortega [place], [place] [address] 08/20/2025 11:00 AM EDT Office Visit [facility] [place] [address] [place] [address] Jude Duque MD [address] [place] [address] 10/30/2025 1:20 PM EST Office Visit [facility] Endocrinology [address] [place] [address] Sharif Moreno DPM [address] [place] [address] documented as of this encounter [...] documented as of this encounter Care Teams Powder Line Repairer Relationship Specialty Start Date End Date Alvarez Zimmer MD [address] [place] [address] PCP - General Family Medicine 12/07/24 Lea Fernando [address] [place] [address] Geographic Information Systems Director Endocrinology 08/29/24 Rachel Ray APRN [address] [facility] [address] [place] [address] Nurse Practitioner Gastroenterology 09/24/24 Tamera Isabel, SIDEWALK INSPECTOR VALUE-BASED TRANSFORMATION PROGRAM Licensed Practical Nurse 05/29/25 documented as of this encounter
--- OUTSIDE RECORDS SUMMARY | 2025-06-23 17:44 | XMS_ITS | Encounter Summary ---
Author Organization [facility] Address [address] [place] [address] Care Team Providers Care Artificial Plastic Eye Maker Name Role Phone Lea Fernando Unavailable [phone] Rachel Ray CHEMICAL PROCESS PROJECT ENGINEER Unavailable [phone] Alvarez Zimmer MD Primary Care Provider [phone] Tamera Isabel LPN Unavailable Unavailabl e Reason for Referral * Consultation (Routine) - Authorized Specialty Diagnoses / Procedures Referred By Contac t Referred To Contact Palliative Medicine Diagnoses 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) (CMS/HCC) Protein malnutrition (CMS/HCC) Weight loss Cognitive impairment Alvarez Zimmer MD [address] [place] [address] Phone: tel: fax: Referral ID Status Reason Start Date Expiration Date V isits Requested Visits Authorized [id number] Authorized 06/12/2025 12/12/2026 1 1 Encounter Details Date Type Department Care Team (Late st Contact Info) Description 06/12/2025 Orders Only [facility] [address] [place] [address] Alvarez Zimmer MD [address] [place] [address] 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) (CMS/HCC) (Primary Dx); Protein malnutrition (CMS/HCC); Weight loss; Cognitive impairment Social History Tobacco Use Types Packs/Day Years [...] How often do you attend chur or gnosticist services? Patient unable to answer 01/10/2025 Do [...] attend [facility] or gnosticist services? Never 05/29/2025 Do you belong to [...] more drinks on one occasion? Never 06/05/2025 [facility] [place] [facility] - Occupational Stress Questionnaire Answer Date Recorded [...] drink first t kennedy in the morning (EYE-INSPECTOR MISSILE) to steady your nerves or to get [...] Appointment [facility] [address] [place] [address] 06/27/2025 10:30 AM EDT Appointment [facility] [address] [place] [address] 07/04/2025 10:30 AM EDT Appointment [facility] [address] [place] [address] 07/04/2025 11:30 AM EDT Appointment [facility] [address] [place] [address] 07/09/2025 2:40 PM EDT Office Visit [facility] [address], [address] [place] [address] Ar Dominique MD [address] [place] [address] 07/11/2025 10:30 AM EDT Appointment [facility] [address] [place] [address] 07/11/2025 11:30 AM EDT Appointment [facility] [address] [place], [place] [address] 07/18/2025 10:30 AM EDT Appointment [facility] [address] [place], [place] [address] 07/18/2025 11:30 AM EDT Appointment [facility] [address] [place], [place] [address] 07/25/2025 10:30 AM EDT Appointment [facility] [address] [place], [place] [address] 07/25/2025 11:30 AM EDT Appointment [facility] [address] [place], [place] [address] 07/31/2025 9:00 AM EDT Office Visit [facility] [address] [place] [address] Alvarez Zimmer MD [address] [place] [address] 08/20/2025 9:30 AM EDT Clinical Support [facility] [address] [place] [address] 08/20/2025 10:30 AM EDT Social Work [facility] [address] [place] [address] [place] [address] 08/20/2025 11:00 AM EDT Office Visit [facility] [address] [place] [address] Jude Duque MD [address] [place] [address] 10/30/2025 1:20 PM EST Office Visit [facility] [address] [place] [address] Sharif Moreno, ROSY [address] [place] [address] Scheduled Referrals Name Type Priority Associated Diagnoses Orde r Schedule Ambulatory referral to Palliative Care Outpatient Referral Routine 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) (CMS/HCC) Protein malnutrition (CMS/HCC) Weight loss Cognitive impairment Expected: 06/12/2025 (Approximate), Expires: 12/14/2026 documented as of this encounter Visit Diagnoses Diagnosis 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) (CMS/HCC)- Primary Protein malnutrition (CMS/HCC) [place] Weight loss Loss of weight Cognitive impairment Unspecified persistent mental disorders due to conditions classified elsewhere documented in this encounter Additional Health Concerns Assessment Noted Time PHQ-9 Depression Total Score: 6 06/11/20 10:59 AM EDT A fall risk assessment has been complete d for the patient 06/11/2025 10:59 AM EDT A Body Mass Index follow-up plan has been documented for the patient 06/11/2025 12:07 PM EDT documented as of this encounter Care Teams Artificial Plastic Eye Maker Relationship Specialty Start Date End Date Alvarez Zimmer MD [address] [place] [address] PCP - General Family Medicine 12/07/24 Lea Fernando [address] [place] [address] Disability Examiner Endocrinology 08/29/24 Rachel Ray APRN [address] [place] [address] Nurse Practitioner Gastroenterology 09/24/24 Planck, Tamera N, MOLDING MACHINE SETTER VALUE-BASED TRANSFORMATION PROGRAM Licensed Practical Nurse 05/29/25 documented as of this encounter
--- OUTSIDE RECORDS SUMMARY | 2025-06-23 17:44 | XMS_ITS | Clinical Summary ---
Author Organization Healthcare Address [address] [place] [address] Care Team Providers Care Public Speaking Coach Name Role Phone Lea Fernando Unavailable [phone] Rachel Ray LOCAL OPERATOR Unavailable [phone] Alvarez Zimmer MD Primary Care Provider [phone] Tamera Isabel LPN Unavailable Unavailabl e Allergies No known active allergies Medications Multiple Vitamins-Minerals (COMPLETE WOMENS PO) Take 1 tablet by mouth in the morning. Active pen needle, diabetic (BD Pen Needle Micro U/F) 32G X 6 MM misc Use to inject insulin 4 times per day. 400 each 3 024 Active calcium carbonate EX (Tums E-X) 750 MG chewable tablet Chew 1 tablet (750 mg) 1 (one) time each day. 025 Active Blood Glucose Monitoring Suppl (Blood Glucose Monitor System) w/Device kit Test blood sugars twice a day. Dx E11.65 1 kit 025 Active B-D ULTRAFINE III SHORT PEN 31G X 8 MM misc 025 Active Lancets misc Use to test blood sugars twice a day E11.65 100 each 1 025 Active glucose blood test strip Use to test blood sugars twice a day E11.65 100 each 1 025 Active zinc sulfate (Zincate) 220 (50 Zn) MG capsule Take 1 capsule by mouth in the morning and 1 capsule before bedtime. 60 capsule 2 025 Active ciprofloxacin (Cipro) 500 MG tabletIndications :Altered mental status, unspecified altered mental status type Take 1 tablet by mouth daily. 90 tablet 1 Active ondansetron ODT (Zofran-ODT) 8 MG disintegrating tablet Dissolve 1 tablet on the tongue every 8 hours as needed for nausea or vomiting. 30 tablet 1 Active Magnesium Oxide, Laxative, 500 MG tabletIndications :Hypomagnesemia Take 1 tablet by mouth daily. 90 tablet 3 Active cholecalciferol (Vitamin D-3) 25 MCG (1000 UT) tablet Take 1 tablet by mouth daily. 90 tablet 2 Active insulin aspart (NovoLOG Flexpen) 100 UNIT/ML injection Inject 24 units before meals, 12 units before small meals/snacks plus 4 units for every 50 > 150. MDD: 100 units Active ergocalciferol (Vitamin D-2) 1.25 MG (98514 UT) capsuleIndication s:Vitamin D deficiency Take 1 capsule by mouth 1 time per week. 8 capsule 3 025 2024 Active Zegalogue 0.6 MG/0.6ML solution auto-injectorIndi cations:Type 2 diabetes mellitus with hyperglycemia, with long-term current use of insulin ([facility]) Inject 0.6 mg under the skin 1 time as needed (for extreme hypoglycemia) for up to 1 dose. 0.6 mL 2 Active cetirizine (ZyrTEC) 10 MG tabletIndications :ETD (Eustachian tube dysfunction), bilateral Take 1 tablet by mouth daily. 30 tablet 2 025 2024 Active fluticasone (Flonase) 50 MCG/ACT nasal sprayIndications: ETD (Eustachian tube dysfunction), bilateral Administer 1 spray into each nostril daily. Shake gently. Before first use, prime pump. After use, clean tip and replace cap. 16 g Active azelastine (Astelin) 0.1 % nasal sprayIndications: ETD (Eustachian tube dysfunction), bilateral Administer 1 spray into each nostril 2 times a day. Use in each nostril as directed 30 mL 12 Active Abaloparatide (Tymlos) 3120 MCG/1.56ML solution pen-injector Inject 80 mcg under the skin daily. 1.56 mL 2 Active Insulin Pen Needle 31G X 6 MM misc 1 each daily. Use to administer Tymlos daily 100 each Active Lantus SoloStar 100 UNIT/ML injection pen Inject 52 units every morning. Titrate as directed. MDD: 60 units Active capsaicin (Zostrix) 0.025 % cream Apply thin layer to feet nightly WITH GLOVES 56.6 g 1 Active midodrine (Proamatine) 10 MG tablet Take 2 tablets by mouth 3 times a day. 180 tablet 3 025 2024 Active prochlorperazine (Compazine) 5 MG tablet Take 1 tablet by mouth every 8 hours as needed for nausea or vomiting. 60 tablet 2 025 2024 Active lactulose (Chronulac) 10 GM/15ML solution Take 30 mL by mouth 3 times a day. 2700 mL Active omeprazole (PriLOSEC) [address] capsule Take 1 capsule by mouth 2 times a day. Do not crush or chew. 60 capsule 1 025 2024 Active rifAXIMin (Xifaxan) 550 MG tabletIndications :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) (CMS/HCC) Take 1 tablet by mouth 2 times a day. 60 tablet 11 025 2025 Active B-D UF III MINI PEN NEEDLES 31G X 5 MM misc Active calcitriol (Rocaltrol) 0.25 MCG capsuleIndication s:Chronic kidney disease, stage 3b (CMS/HCC) Take 1 capsule by mouth daily. 30 capsule 025 2025 Active rosuvastatin (Crestor) 20 MG tablet Take 1 tablet by mouth nightly. 90 tablet 2 Active rosuvastatin (Crestor) 20 MG tablet Take 1 tablet by mouth nightly. 020 2024 Discontinued(R eorder) diclofenac (Voltaren) 1 % topical gel Place 1-2 g on the skin in the morning and 1-2 g before bedtime. Do all this for 14 days. Apply as directed to area in chest. 100 g 025 2024 midodrine (Proamatine) 5 MG tablet Take 3 tablets by mouth 3 times a day. 270 tablet 11 025 2024 Discontinued omeprazole (PriLOSEC) [address] capsule Take 1 capsule by mouth 2 times a day. Do not crush or chew. 60 capsule 1 025 2024 Discontinued(R eorder) calcitriol (Rocaltrol) 0.25 MCG capsuleIndication s:Chronic kidney disease, stage 3b (CMS/HCC) Take 1 capsule by mouth daily. 30 capsule 2 025 2024 Discontinued(R eorder) rifAXIMin (Xifaxan) 550 MG tabletIndications :Transient alteration of awareness Take 1 tablet by mouth 2 times a day. 60 tablet 025 2024 Additional Information Patient not taking.Reported on 06/05/2025 lactulose (Chronulac) 10 GM/15ML oral solution Take 30 mL by mouth 3 times a day. 2700 mL 025 2024 Additional Information Patient not taking.Reported on 06/05/2025 rifAXIMin (Xifaxan) 550 MG tabletIndications :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) (CMS/HCC) Take 1 tablet by mouth 2 times a day. 60 tablet 11 025 2024 Discontinued(R eorder) Active Problems Problem Noted Date Diagnosed Date Caregiver not readily available 06/11/2025 Hx of spontaneous bacterial peritonitis 03/01/20 25 Other ascites 01/22/2025 Moderate protein-calorie malnutrition 01/22/2025 Hepatic encephalopathy 10/14/2024 CARLOTTA (acute kidney injury) 10/14/2024 Type 2 diabetes mellitus wit h other diabetic neurological complication 07/17/2024 Type 2 diabetes mellitus, wi th long-term current use of insulin 01/11/2024 Secondary esophageal varices without bleeding Portal hypertensive gastropathy 02/24/2023 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) 11/30/2022 Irritable bowel syndrome wit h both constipation and diarrhea 11/25/2022 Carpal tunnel syndrome 11/25/2022 Hyperlipidemia 07/17/2021 Obesity (BMI 30.0-34.9) 06/27/2020 JONATHAN treated with BiPAP 12/03/2019 Epigastric pain 08/02/2019 Heartburn 08/02/2019 Chronic kidney disease, stage 3b 08/24/2018 Physical deconditioning 08/24/2018 Chronic obstructive pulmonary disease 08/22/2018 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 08/22/2018 Rheumatoid arthritis with positive rheumatoid fa ctor 08/22/2018 Spondylosis of lumbar region without myelopathy or radiculopathy 08/22/2018 Systemic lupus erythematosus 08/22/2018 ETD (eustachian tube dysfunction) 07/13/2018 Dysphagia 05/17/2018 Diabetic peripheral neuropathy 01/07/2017 Alopecia 09/03/2016 Resolved Problems Problem Noted Date Diagnosed Date Resolved Date Altered mental state 01/08/2025 025 Fatty liver disease, nonalcoholic 10/26/2022 01/23/2025 Memory loss 12/03/2019 03/06/2025 Colon cancer screening 09/20/201903/24 Overview (07/17/2021): Added automatically from request for surgery [id number] Mixed hearing loss of right ear 08/24/2019 05/07/2025 Tympanic membrane perforation 08/24/2019 05/07/2025 Bright red blood per rectum 08/02/2019 01/23/2025 Constipation 08/02/2019 01/23/2025 Intractable migraine with au ra without status migrainosus 05/16/2019 05/07/2025 Diabetic polyneuropathy asso ciated with type 2 diabetes mellitus 08/24/2018 03/24/2022 Lumbar stenosis with neurogenic claudication 8 05/07/2025 Chronic throat clearing 05/17/2018 03/0 03/2025 Laryngopharyngeal reflux (LPR) 05/17/2018 01/23/2025 Nasal septal deviation 05/17/201801/23 Nasal turbinate hypertrophy 05/17/2018 01/23/2025 Encounters Date Type Department Care Team Description 06/23/2025 [facility] Bone & Mineral Metabolism [address], [address] [place] [address] Ar Dominique MD Vitamin D deficiency 06/21/2025 [facility]phone [facility] [address] [place] [address] Alvarez Zimmer MD HCN Clinical Concern/Question 06/20/2025 1:04 PM EDT - 06/20/2025 11:59 PM EDT Hospital Encounter [facility] [address] [place] [address] Arrived Discharge Disposition: Home or Self Care 06/20/2025 9:03 AM EDT - 06/20/2025 1:03 PM EDT Hospital Encounter [facility] [address] [place] [address] Shanthi Rooney Other ascites Discharge Disposition: Home or Self Care 06/20/2025 Telephone [facility] [address] [place] [address] Alvarez Zimmer MD 06/20/2025 Orders Only [facility] Vascular Interventional Radiology [address] [place] [address] Preeti Andersen S, LOCAL OPERATOR Other ascites (Primary Dx) 06/20/2025 Travel 06/17/2025 Telephone [facility] Endocrinology [address] [place] [address] Deysi Antonio MD 06/14/2025 Telephone [facility] [address] [place] [address] Alvarez Zimmer MD 06/14/2025 Orders Only [facility] [address] [place] [address] Alvarez Zimmer MD 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) (CMS/HCC) (Primary Dx) 06/14/2025 Orders Only [facility] [address] [place] [address] Marianna Gordon, LOCAL OPERATOR Shortness of breath (Primary Dx); Pleural effusion; Other ascites 06/14/2025 Telephone [facility] [address] [place] [address] Alvarez Zimmer MD 06/14/2025 Orders Only [facility] [address] [place] [address] Marianna Gordon, LOCAL OPERATOR Other ascites (Primary Dx); Pleural effusion; Shortness of breath; Alcoholic cirrhosis of liver with ascites (CMS/HCC) 06/13/2025 1:32 PM EDT - 06/13/2025 11:59 PM EDT Hospital Encounter [facility] [address] [place] [address] Discharge Disposition: Home or Self Care 06/13/2025 10:56 AM EDT - 06/13/2025 1:31 PM EDT Hospital Encounter [facility] [address] [place] [address] Alvarez Mcclure Other ascites Discharge Disposition: Home or Self Care 06/13/2025 Travel 06/12/2025 Travel 06/12/2025 Orders Only [facility] [address] [place] [address] Alvarez Zimmer MD 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) (CMS/HCC) (Primary Dx); Protein malnutrition (CMS/HCC); Weight loss; Cognitive impairment 06/11/2025 11:20 AM EDT Office Visit [facility] Transplant Center [address] [facility] [address] [place] [phone] Octavia Herrera PA Hepatic encephalopathy (CMS/HCC) (Primary Dx); 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 06/11/2025 10:30 AM EDT Social Work [facility] Transplant Center [address] [place] [address] Lea Reilly LCSW 06/11/2025 Travel 06/10/2025 Results [facility]Up [facility] [address] [place] [address] Alvarez Zimmer MD 06/09/[address] [facility] [employer] [facility] Bone & Mineral Metabolism [address], [address] [place] [address] Ar Dominique MD Chronic kidney disease, stage 3b (CMS/HCC) 06/06/2025 11:20 AM EDT - 06/06/2025 11:59 PM EDT Hospital Encounter [facility] [address] [place] [address] Discharge Disposition: Home or Self Care 06/06/2025 7:58 AM EDT - 06/06/2025 11:19 AM EDT Hospital Encounter [facility] [address] [place] [address] Golden Wilhelm, RN Other ascites Discharge Disposition: Home or Self Care 06/06/2025 Travel 06/05/2025 2:00 PM EDT [facility] [address] [place] [address] Alvarez Zimmer MD Medicare annual wellness visit, initial (Primary Dx); Coronary artery disease of [place] river artery of [place] heart with stable angina pectoris ([facility]/HCC); Diabetic peripheral neuropathy (CMS/HCC); Type 2 diabetes mellitus with other diabetic neurological complication ([facility]/HCC); Chronic obstructive pulmonary disease, unspecified COPD type (CMS/HCC); JONATHAN treated with BiPAP; Chronic kidney disease, stage 3b (CMS/HCC); Hyperlipidemia, unspecified hyperlipidemia type; Type 2 diabetes mellitus with hyperglycemia, with long-term current use of insulin ([facility]/HCC); Anemia of chronic disease; Anxiety disorder, unspecified type; 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) (CMS/HCC); Hypomagnesemia; Vitamin D deficiency; Hyperbilirubinemia; Protein malnutrition (CMS/HCC) 06/05/2025 Travel 06/01/20[facility] [address] , [address] [place] [address] Ar Dominique MD Chronic kidney disease, stage 3b (CMS/HCC) 06/01/2025 Refill [facility] Transplant Center [address] [facility] [address] [place] [phone] Octavia Herrera PA 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) (CMS/HCC) 05/31/2025 12:36 PM EDT - 05/31/2025 8:07 PM EDT Emergency [facility] [address] [place] [address] Torrie Turner MD Katirji, Linda Y, MD Altered mental status, unspecified altered mental status type (Primary Dx) Discharge Disposition: Home or Self Care 05/31/2025 Travel 05/30/2025 8:58 AM EDT - 05/30/2025 11:59 PM EDT Hospital Encounter [facility] [address] [place] [address] Shirley Jiang, RN Other ascites; Type 2 diabetes mellitus with hyperglycemia, with long-term current use of insulin (CMS/HCC); Chronic kidney disease, stage 3b (CMS/HCC) Discharge Disposition: Home or Self Care 05/30/2025 Travel 05/29/2025 Patient Outreach [facility] [address], [address] [place] [phone] Tamera Isabel LPN Annual Wellness Visit 05/29/2025 Travel 05/28/2025 Travel 05/23/2025 12:19 PM EDT - 05/23/2025 11:59 PM EDT Hospital Encounter [facility] [address] [place] [address] Discharge Disposition: Home or Self Care 05/23/2025 8:48 AM EDT - 05/23/2025 12:18 PM EDT Hospital Encounter [facility] [address] [place] [address] Kael Mohan, RN Other ascites Discharge Disposition: Home or Self Care 05/23/2025 8:31 AM EDT - 05/23/2025 8:47 AM EDT Hospital Encounter [facility] [address] [place] [address] Kael Mohan, RN Other ascites; End-stage liver disease (CMS/HCC); Type 2 diabetes mellitus with hyperglycemia, with long-term current use of insulin (CMS/HCC) Discharge Disposition: Home or Self Care 05/23/2025 Orders Only [facility] Endocrinology [address] [place] [address] Enmanuel Wetzel MD 05/23/2025 Results Follow-Up [facility] Transplant Center [address] [place] [address] Wilma Arana RN 05/23/2025 Travel 05/22/2025 Travel 05/21/[address] [address] Alvarez Zimmer MD 05/21/2025 [facility] Bone & Mineral Metabolism [address], [address] [place] [address] Ar Dominique MD Chronic kidney disease, stage 3b (CMS/HCC) 05/18/2025 Travel 05/17/2025 9:20 AM EDT Office Visit [facility] Endocrinology [address] [place] [address] Enmanuel Wetzel MD Type 2 diabetes mellitus with hyperglycemia, with long-term current use of insulin (CMS/HCC) (Primary Dx); Chronic kidney disease, stage 3b (CMS/HCC); Dyslipidemia 05/16/2025 11:04 AM EDT - 05/16/2025 11:59 PM EDT Hospital Encounter [facility] [address] [place] [address] Discharge Disposition: Home or Self Care 05/16/2025 8:01 AM EDT - 05/16/2025 11:03 AM EDT Hospital Encounter [facility] [address] [place] [address] Kandice Silva RN Other ascites Discharge Disposition: Home or Self Care 05/16/2025 Telephone [facility] Endocr[facility]ology [address] [place] [address] Tyler Babin 05/16/2025 Telephone [facility] Endocr[facility]ology [address] [place] [address] Tyler Babin 05/16/2025 Travel 05/14/[address] [address] Kacie Buckley APRN Hypomagnesemia 05/10/2025 5:08 PM EDT - 05/10/2025 11:59 PM EDT Hospital Encounter [facility] [address] [place] [address] Discharge Disposition: Home or Self Care 05/10/2025 1:00 PM EDT - 05/10/2025 5:07 PM EDT Hospital Encounter [facility] [address] [place] [address] Abdoul Cuello 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) (CMS/HCC) (Primary Dx); Other ascites Discharge Disposition: Home or Self Care 05/10/2025 Travel 05/09/2025 Travel 05/08/2025 Results Follow-Up [facility] [address] [place] [address] Wilma Arana RN 05/07/2025 12:09 PM EDT - 05/07/2025 11:59 PM EDT Hospital Encounter [facility] [address] [place] [address] End-stage liver disease (CMS/HCC) Discharge Disposition: Home or Self Care 05/07/2025 10:40 AM EDT Office Visit [facility] Transplant Center [address] [place] [address] Octavia Herrera, PA 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) (CMS/HCC) (Primary Dx); Hepatic encephalopathy (CMS/HCC); Secondary esophageal varices without bleeding (CMS/HCC); Moderate protein-calorie malnutrition (CMS/HCC); Other ascites; Physical deconditioning 05/07/2025 Travel 05/04/[address] [address] Alvarez Zimmer MD Altered mental status, unspecified altered mental status type 05/03/2025 1:50 PM EDT - 05/03/2025 6:33 PM EDT Emergency [facility] Emergency [facility] [address] [place] [address] Ck Whitten MD Transient alteration of awareness (Primary Dx) Discharge Disposition: Home or Self Care 05/03/2025 Travel 05/02/2025 9:16 AM EDT - 05/02/2025 11:59 PM EDT Hospital Encounter [facility] [address] [place] [address] Allison Mckee Other ascites Discharge Disposition: Home or Self Care 05/02/2025 Travel 04/30/2025 Travel 04/25/2025 9:30 AM EDT - 04/25/2025 11:59 PM EDT Hospital Encounter [facility] [address] [place] [address] Golden Wilhelm, RN Other ascites Discharge Disposition: Home or Self Care 04/25/2025 Travel 04/24/2025 3:30 PM EDT Consult [facility] Endocrinology [address] [place] [address] Sharif Moreno, DPNicole Diabetic peripheral neuropathy (CMS/HCC) (Primary Dx); Difficulty walking; Onychodystrophy 04/24/2025 Travel 04/23/2025 9:00 AM EDT Office Visit [facility] Endocrinology [address] [place] [address] Brock Mckeon, PharmD Type 2 diabetes mellitus with hyperglycemia, with long-term current use of insulin ([facility]) (Primary Dx) 04/23/2025 [facility]ill [facility] [address] [place] [address] Alvarez Zimmer MD Altered mental status, unspecified altered mental status type 04/22/2025 Telephone [facility] Bone & Mineral Metabolism [address], [address] [place] [address] Roger Carter, PharmD 04/19/2025 [facility]ill [facility] [address] [place] [address] Alvarez Zimmer MD 04/19/2025 Refill [facility] Bone & Mineral Metabolism [address], [address] [place] [address] Ar Dominique MD Chronic kidney disease, stage 3b (CMS/HCC) 04/19/2025 Refill [facility] [address] [facility] [address] [place] [address] Octavia Herrera PA End-stage liver disease ([facility]); Pre-transplant evaluation for liver transplant 04/19/2025 Travel 04/18/2025 12:53 PM EDT - 04/18/2025 11:59 PM EDT Hospital Encounter [facility] [address] [place] [address] Discharge Disposition: Home or Self Care 04/18/2025 9:39 AM EDT - 04/18/2025 12:52 PM EDT Hospital Encounter [facility] [address] [place] [address] Golden Wilhelm, PARK Other ascites; Pleural effusion Discharge Disposition: Home or Self Care 04/18/2025 Telephone [facility] [address] [place] [address] Amy Reinoso, PARK 04/18/2025 Telephone [facility] [address] [place] [address] Amy Reinoso, RN 04/18/2025 Telephone [facility] [address] [place] [address] Amy Reinoso, RN 04/18/2025 Travel 04/17/2025 1:40 PM EDT [facility] [address] [place] [address] Lisa Acuna, LOCAL OPERATOR, DNP ETD (Eustachian tube dysfunction), bilateral (Primary Dx) 04/17/2025 Travel 04/17/2025 Telephone [facility] Endocrinology [address] [place] [address] Miranda Hobson APRN Prior-authorization/i nsurance Verification 04/16/2025 Travel 04/11/2025 11:42 AM EDT - 04/11/2025 11:59 PM EDT Hospital Encounter [facility] [address] [place] [phone] Discharge Disposition: Home or Self Care 04/11/2025 8:04 AM EDT - 04/11/2025 11:41 AM EDT Hospital Encounter [facility] [address] [place] [address] Shanthi Rooney Pleural effusion Discharge Disposition: Home or Self Care 04/11/2025 8:02 AM EDT - 04/11/2025 8:03 AM EDT Hospital Encounter [facility] [address] [place] [address] Shanthi Rooney Other ascites Discharge Disposition: Home or Self Care 04/11/2025 Travel 04/10/2025 11:40 AM EDT Office Visit [facility] Mineral Metabolism [address], [address] [place] [address] Ar Dominique MD Age-related osteoporosis without current pathological fracture (Primary Dx); Vitamin D deficiency; Chronic kidney disease, stage 3b (CMS/HCC); 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); Type 2 diabetes mellitus with hyperglycemia, with long-term current use of insulin (CMS/HCC); Spondylosis of lumbar region without myelopathy or radiculopathy; Portal hypertensive gastropathy (CMS/HCC); 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) (CMS/HCC); Moderate protein-calorie malnutrition (CMS/HCC); Chronic obstructive pulmonary disease, unspecified COPD type (CMS/HCC); Lumbar stenosis with neurogenic claudication; Coronary artery disease of salt river artery of salt river heart with stable angina pectoris (CMS/HCC); Hepatic encephalopathy (CMS/HCC) 04/10/2025 Telephone [facility] [address], [address] [place] [phone] Juanis Cuello 04/09/2025 9:30 AM EDT Office Visit [facility] Endocrinology [address] [place] [address] Brock Mckeon, PharmD Type 2 diabetes mellitus with other specified complication, with long-term current use of insulin ([facility]/HCC) 04/04/2025 10:58 AM EDT - 04/04/2025 11:59 PM EDT Hospital Encounter [facility] [address] [place] [address] Discharge Disposition: Home or Self Care 04/04/2025 7:17 AM EDT - 04/04/2025 10:57 AM EDT Hospital Encounter [facility] [address] [place] [address] Shirley Jiang, RN Other ascites; Age-related osteoporosis without current pathological fracture Discharge Disposition: Home or Self Care 04/04/2025 Telephone [facility] [address] [place] [address] Alvarez Zimmer MD 04/04/2025 Results Follow-Up [facility] Medicine Specialties [address] [place] [address] Octavia Herrera PA 04/04/2025 Travel 04/03/2025 Telephone [employer] [facility] Bone & Mineral Metabolism [address], [address] [place] [address] Power De La Vega 04/03/2025 Telephone [facility] Mineral Metabolism [address] [facility], [address] [place] [address] Power [place] 04/03/2025 Travel 04/02/2025 Travel 04/02/2025 [facility]ill [facility] [address] [place] [address] Alvarez Zimmer MD 04/01/2025 Orders Only [facility] [address] [place] [address] Alvarez Zimmer MD 04/01/2025 Orders Only [facility] [address] [place] [address] Alvarez Zimmer MD Hypomagnesemia 03/30/2025 Telephone [facility] [address] [place] [address] Alvarez Zimmer MD Med Refill 03/30/2025 Refill [facility] [address] [facility] [address] [place] [phone] Octavia Herrera PA 03/30/2025 Refill [facility] [address] [place] [address] Kacie Buckley APRN Hypomagnesemia 03/28/2025 10:33 AM EDT - 03/28/2025 11:59 PM EDT Hospital Encounter [facility] [address] [place] [address] Discharge Disposition: Home or Self Care 03/28/2025 8:08 AM EDT - 03/28/2025 10:32 AM EDT Hospital Encounter [facility] [address] [place] [address] Abdoul Cuello Alcoholic cirrhosis of liver with ascites (CMS/HCC) Discharge Disposition: Home or Self Care 03/28/2025 Travel 03/28/2025 Telephone [facility] [address] [place] [address] Amy Reinoso, RN from Last 3 Months Immunizations Immunization Administration Dates Next Due Influenza, Unspecified 09/10/2022,09/01/2015 Influenza, injectable, quadrivalent 09/05/2019,1 ,08/10/2016 Influenza, injectable, quadr ivalent, preservative free 10/01/2021,02/11/2021,08/18/2017 Influenza, seasonal, injectable 09/01/2015 Pneumococcal Polysaccharide PPV23 08/23/2018 Tdap 07/17/2019 Zoster, Recombinant 10/30/2019,07/17/2019 Family History Medical History Relation Name Comments Arthritis Father Eliseo Singletary Cancer Father Eliseo Singletary Cardiac disorder Father Eliseo Singletary Depression Father Eliseo Singletary Diabetes Father Eliseo Singletary Diabetes type II Father Eliseo Singletary Hearing loss Father Eliseo Singletary Heart disease Father Eliseo Singletary Kidney disease Father Eliseo Singletary Skin cancer Father Eliseo Singletary No Known Problems Maternal Grandfather Alzheimer's disease Maternal Grandmother Christine Dick Dementia Maternal Grandmother Christine Dick Emphysema Maternal Grandmother Christine Dick Arthritis Mother Karime Singletary Depression Mother Karime Singletary Diabetes Mother Karime Singletary Diabetes type II Mother Karime Singletary Hyperlipidemia Mother Karime Singletary Hypertension Mother Karime Singletary Kidney disease Mother Karime Singletary Thyroid disease Mother Karime Singletary Dementia Paternal Grandfather Kidney disease Paternal Grandmother Anish Singletary Stomach cancer Paternal Grandmother Anish Singletary Arthritis Sister Lj Bernal Autoimmune disease Sister Lj Bernal Diabetes Sister Lj Bernal Diabetes type II Sister Lj Bernal Immunodeficiency Sister Lj Bernal Recurrent Infections Sister Lj Bernal Rheumatologic disease Sister Lj Bernal No Known Problems Son 1 Anxiety disorder Son 2 Depression Son 2 Diabetes Son 2 Obesity Son 2 Asthma Son 3 Jp Zimmer Depression Son 3 Jp Zimmer Mental illness Son 3 Jp Zimmer Depression Son 4 Viral Zimmer Diabetes Son 4 Viral Zimmer Relation Name Status Comments Father Eliseo Singletary Maternal Grandfather Maternal Grandmother Christine Dick Mother Karime Singletary Alive Other Paternal Grandfather Paternal Grandmother Anish Singletary Sister Lj Bernal Alive Son 1 Alive Son 2 Alive Son 3 Jp Zimmer Alive Son 4 Viral [place] Alive Social History Tobacco Use Types Packs/Day Years [...] in a alf (including now)? No 03/06/2025 Humiliation, Afraid, Rape, [...] you attend chur or oriental orthodox services? Never 05/29/2025 Do [...] one occasion? 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) to steady your nerves or to [...] file Not on file Not on file Last Filed Vital Signs [...] Mass Index 30.74 06/20/2025 10:00 AM EDT Plan of Treatment Upcoming Encounters Date Type Department Care Team (Late st Contact Info) Description 06/27/2025 9:30 AM EDT Appointment [facility] [address] [place] [address] 06/27/2025 10:30 AM EDT Appointment [facility] [address] [place] [address] 07/04/2025 10:30 AM EDT Appointment [facility] [address] [place] [address] 07/04/2025 11:30 AM EDT Appointment [facility] [address] [place] [address] 07/09/2025 2:40 PM EDT Office Visit [facility] [address], [address] [place] [address] Ar Dominique MD [address] [place] [address] 07/11/2025 10:30 AM EDT Appointment [facility] [address] [place] [address] 07/11/2025 11:30 AM EDT Appointment [facility] [address] [place] [address] 07/18/2025 10:30 AM EDT Appointment [facility] [address] [place] [address] 07/18/2025 11:30 AM EDT Appointment [facility] [address] [place] [address] 07/25/2025 10:30 AM EDT Appointment [facility] [address] [place] [phone] 07/25/2025 11:30 AM EDT Appointment [facility] [address] [place] [address] 07/31/2025 9:00 AM EDT [facility] [address] [place] [address] Alvarez Zimmer MD [address] [place] [address] 08/20/2025 9:30 AM EDT Clinical Support [facility] [place] [address] [facility] [address] [place] [address] 08/20/2025 10:30 AM EDT Social Work [facility] [address] [place] [address] [place] [address] 08/20/2025 11:00 AM EDT Office Visit [facility] [address] [place] [address] Jude Duque MD [address] [place] [address] 10/30/2025 1:20 PM EST Office Visit [facility] [address] [place] [address] Sharif Moreno, DPM [address] [place] [address] Health Maintenance Due Date Last Done Comments Dental Prophylaxis 1962 Dental X-Ray: Bitewings 1962 Dental X-Ray: Full Mouth 1962 [facility]-/Child/Adol SDOH Screenings 1962 Diabetes: Dental Exam 1972 [facility]-Hepatitis A Vaccines (1 of 2 - Risk 2-dose series) 1981 CT Colonography 2007 FIT-DNA 2007 FIT 2007 FOBT 2007 Sigmoidoscopy 2007 [facility]-Pneumococcal Vaccine: 50+ Years (2 of 2 - PCV) 08/23/2019 08/23/2018 [facility]-RSV Vaccine: 60+ Years or (1 - Risk 60-74 years 1-dose series) 2022 [id number] Vaccine (1 - season) 2024 Dental Oral Exam 06/17/2025 12/17/2024 [facility]-Influenza Vaccine (#1) 07/22/202509/10, 10/01/2021, 02/11/2021, Additional history exists [facility]-Diabetes: Hemoglobin A1C 08/22/2025 05/23/2025, 01/08/2025, 10/22/2024, Additional history exists [facility]-Bone Density Scan 11/07/2025 11/07/2024 [facility]- SDOH Screenings 11/29/2025 [facility]-Adult SDOH Screenings 11/29/2025 05/29/2025 [facility]-Breast Cancer Screening 01/25/2026 03/0 05/2024, 01/26/2024, 10/21/2022, Additional history exists [facility]-Medicare Annual Wellness (AWV) 06/05/2026 06/05/2025 [facility]-Depression Screening 06/11/2026 06/11/2025, 05/22 [facility]-DTaP,Tdap,and Td Vaccines (2 - Td or Tdap) 07/17/2029 07/17/2019 Colonoscopy 01/14/2033 01/14/2023 [facility]-Colorectal Cancer Screening 01/14/2033 [facility]-Cervical Cancer Screening Discontinued [facility]-HPV/Cotest Discontinued 04/12/2003, 07/22, 02/23/2002, Additional history exists [facility]-Pap Smear Discontinued 04/12/2003, 07/22, 02/23/2002, Additional history exists [facility]-Zoster Vaccines Completed 10/30/2019, 9 [facility]-HIV Screening Completed 10/22/2024 [facility]-Hepatitis C Screening Completed 2023, 10/02/2024, 10/28/2022 [facility]-Obesity Intervention Completed 025, 06/13/2025, 06/11/2025, Additional history exists HPV Vaccines Aged Out No longer eligi ble based on patient's age to complete this topic [facility]-HIB Vaccines Aged Out No longer e ligible based on patient's age to complete this topic [facility]-IPV Vaccines Aged Out No longer e ligible based on patient's age to complete this topic [facility]-Rotavirus Vaccines Aged Out No lo nger eligible based on patient's age to complete this topic Procedures Procedure Name Priority Date/Time Associated Diagnosis [...] complicated by ascites and intermittent hepatichydrothorax. TECHNIQUE: Product/Industry Consultant: ADRI Adnersen Secondary Hog Buyer: None. Nurse: Padmini Technologist: Lilliana Phillips Dose: [...] complicated by ascites and intermittent hepatichydrothorax. TECHNIQUE: Product/Industry Consultant: ADRI Andersen Secondary Hog Buyer: None. Nurse: Padmini Technologist: Lilliana Phillips Dose: [...] by SOLANGE Hall on 06/22/2025 6:19AM BODY FLUID, CYTOSPIN, PATHOLOGIST INTERPRETATION Routine 06/20/2025 12:03 PM EDT LACTATE DEHYDROGENASE, PLEURAL FLUID Routine 06/20/2025 12:03 PM EDT TOTAL PROTEIN, PLEURAL FLUID Routine 06/20/2025 12:03 PM EDT BODY FLUID CELL COUNT W/ MANUAL DIFFERENTIAL Routine 06/20/2025 12:03 PM EDT BODY FLUID CULTURE AND GRAM STAIN Routine 06/20/2025 12:03 PM EDT BODY FLUID, CYTOSPIN, PATHOLOGIST INTERPRETATION Routine 06/20/2025 11:59 AM EDT TOTAL PROTEIN, PERITONEAL FLUID Routine 06/20/2025 11:59 AM EDT ALBUMIN, PERITONEAL FLUID Routine 06/20/2025 11:59 AM EDT BODY FLUID CELL COUNT W/ MANUAL DIFFERENTIAL Routine 06/20/2025 11:59 AM EDT XR CHEST 1 VIEW STAT 06/13/2025 1:45 PM EDT US GUIDED THORACENTESIS Routine 06/13/2025 1:18 PM EDT Other ascites US GUIDED ABDOMINAL PARACENTESIS Routine 06/13/2025 1:18 PM EDT Other ascites BODY FLUID, CYTOSPIN, PATHOLOGIST INTERPRETATION Routine 06/13/2025 12:35 PM EDT GLUCOSE, PERITONEAL FLUID Routine 06/13/2025 12:35 PM EDT TOTAL PROTEIN, PERITONEAL FLUID Routine 06/13/2025 12:35 PM EDT BODY FLUID CELL COUNT W/ MANUAL DIFFERENTIAL Routine 06/13/2025 12:35 PM EDT PHOSPHORUS, PLASMA Routine 06/11/2025 9:24 AM EDT Age-related osteoporosis without current pathological fracture PAIN MANAGEMENT, QUANTITATIVE URINE DRUG TESTING Routine 06/11/2025 9:24 AM EDT End-stage liver disease (CMS/HCC) OSTEOCALCIN BY ECIA (SO) Routine 06/11/2025 9:24 AM EDT Age-related osteoporosis without current pathological fracture C-TELOPEPTIDE Routine 06/11/2025 9:24 AM EDT Age-related osteoporosis without current pathological fracture BONE SPECIFIC ALKALINE PHOSPHATASE Routine 06/11/2025 9:24 AM EDT Age-related osteoporosis without current pathological fracture ALCOHOL, URINE Routine 06/11/2025 9:24 AM EDT End-stage liver disease (CMS/HCC) CBC W/O DIFFERENTIAL Routine 06/11/2025 9:24 AM EDT End-stage liver disease (CMS/HCC) COMPREHENSIVE METABOLIC PANEL, PLASMA Routine 06/11/2025 9:24 AM EDT End-stage liver disease (CMS/HCC) COMPREHENSIVE URINE DRUG SCREENING,QUALITATI VE ASSAY, >= 27 DRUG CLASSES Routine 06/11/2025 9:24 AM EDT End-stage liver disease (CMS/HCC) NICOTINE AND COTININE METABOLITE, SERUM, QUANTITATIVE Routine 06/11/2025 9:24 AM EDT End-stage liver disease (CMS/HCC) PAIN MANAGEMENT, QUANTITATIVE URINE DRUG TESTING Routine 06/11/2025 9:24 AM EDT End-stage liver disease (CMS/HCC) PROTHROMBIN TIME(PT) / INR Routine 06/11/2025 9:24 AM EDT End-stage liver disease (CMS/HCC) XR CHEST 1 VIEW Routine 06/06/2025 11:49 AM EDT US GUIDED ABDOMINAL PARACENTESIS Routine 06/06/2025 10:39 AM EDT Other ascites US GUIDED THORACENTESIS Routine 06/06/2025 10:39 AM EDT Other ascites TOTAL PROTEIN, PERITONEAL FLUID Routine 06/06/2025 9:36 AM EDT BODY FLUID, CYTOSPIN, PATHOLOGIST INTERPRETATION Routine 06/06/2025 9:35 AM EDT BODY FLUID CELL COUNT W/ MANUAL DIFFERENTIAL Routine 06/06/2025 9:35 AM EDT FERRITIN, SERUM Routine 06/05/2025 3:52 PM EDT Chronic kidney disease, stage 3b (CMS/HCC) Anemia of chronic disease IRON, PLASMA Routine 06/05/2025 3:52 PM EDT Chronic kidney disease, stage 3b (CMS/HCC) Anemia of chronic disease CBC WITH AUTO DIFFERENTIAL Routine 06/05/2025 3:52 PM EDT Chronic kidney disease, stage 3b (CMS/HCC) Anemia of chronic disease PREALBUMIN, PLASMA Routine 06/05/2025 3:52 PM EDT Protein malnutrition (CMS/HCC) CONJUGATED BILIRUBIN, PLASMA Routine 06/05/2025 3:52 PM EDT Hyperbilirubinem ia URINALYSIS MICROSCOPIC FOR UA REFLEX STAT 05/31/2025 6:43 PM EDT URINE SUBRAMANIAN PANEL STAT 05/31/2025 6:43 PM EDT URINALYSIS WITH REFLEX MICROSCOPIC STAT 05/31/2025 6:43 PM EDT URINALYSIS WITH REFLEX MICROSCOPIC AND CULTURE STAT 05/31/2025 6:43 PM EDT AMMONIA, PLASMA STAT 05/31/2025 4:01 PM EDT PROTHROMBIN TIME(PT) / INR STAT 05/31/2025 4:01 PM EDT CBC WITH AUTO DIFFERENTIAL STAT 05/31/2025 4:01 PM EDT BLOOD GAS PANEL, VENOUS STAT 05/31/2025 4:01 PM EDT LIPASE, PLASMA STAT 05/31/2025 4:01 PM EDT MAGNESIUM, PLASMA STAT 05/31/2025 4:01 PM EDT COMPREHENSIVE METABOLIC PANEL, PLASMA STAT 05/31/2025 4:01 PM EDT ECG ADULT STAT 05/31/2025 3:43 PM EDT URINE SUBRAMANIAN PANEL STAT 05/31/2025 3:08 PM EDT URINALYSIS MICROSCOPIC FOR UA REFLEX STAT 05/31/2025 3:06 PM EDT URINALYSIS WITH REFLEX MICROSCOPIC STAT 05/31/2025 3:06 PM EDT URINALYSIS WITH REFLEX MICROSCOPIC AND CULTURE STAT 05/31/2025 3:06 PM EDT US CHEST Routine 05/30/2025 11:15 AM EDT Other ascites US GUIDED ABDOMINAL PARACENTESIS Routine 05/30/2025 11:15 AM EDT Other ascites BODY FLUID, CYTOSPIN, PATHOLOGIST INTERPRETATION Routine 05/30/2025 10:25 AM EDT TOTAL PROTEIN, PERITONEAL FLUID Routine 05/30/2025 10:25 AM EDT BODY FLUID CELL COUNT W/ MANUAL DIFFERENTIAL Routine 05/30/2025 10:25 AM EDT BASIC METABOLIC PANEL, PLASMA Routine 05/30/2025 9:59 AM EDT Type 2 diabetes mellitus with hyperglycemia, with long-term current use of insulin (CMS/HCC) Chronic kidney disease, stage 3b (CMS/HCC) INSULIN, RANDOM Routine 05/30/2025 9:59 AM EDT Type 2 diabetes mellitus with hyperglycemia, with long-term current use of insulin (CMS/HCC) XR CHEST 1 VIEW STAT 05/23/2025 12:38 PM EDT US GUIDED THORACENTESIS Routine 05/23/2025 11:59 AM EDT Other ascites BODY FLUID, CYTOSPIN, PATHOLOGIST INTERPRETATION Routine 05/23/2025 11:07 AM EDT BODY FLUID CELL COUNT W/ MANUAL DIFFERENTIAL Routine 05/23/2025 11:07 AM EDT ALBUMIN, PERITONEAL FLUID Routine 05/23/2025 11:06 AM EDT HEMOGLOBIN A1C Routine 05/23/2025 9:27 AM EDT Type 2 diabetes mellitus with hyperglycemia, with long-term current use of insulin (CMS/HCC) PROTHROMBIN TIME(PT) / INR Routine 05/23/2025 9:27 AM EDT End-stage liver disease (CMS/HCC) COMPREHENSIVE METABOLIC PANEL, PLASMA Routine 05/23/2025 9:27 AM EDT End-stage liver disease (CMS/HCC) CBC W/O DIFFERENTIAL Routine 05/23/2025 9:27 AM EDT End-stage liver disease (CMS/HCC) XR CHEST 1 VIEW STAT 05/16/2025 11:14 AM EDT US GUIDED THORACENTESIS Routine 05/16/2025 10:32 AM EDT Other ascites US GUIDED ABDOMINAL PARACENTESIS Routine 05/16/2025 10:32 AM EDT Other ascites BODY FLUID, CYTOSPIN, PATHOLOGIST INTERPRETATION Routine 05/16/2025 9:26 AM EDT TOTAL PROTEIN, PERITONEAL FLUID Routine 05/16/2025 9:26 AM EDT BODY FLUID CELL COUNT W/ MANUAL DIFFERENTIAL Routine 05/16/2025 9:26 AM EDT XR CHEST 1 VIEW STAT 05/10/2025 5:16 PM EDT US GUIDED THORACENTESIS Routine 05/10/2025 4:57 PM EDT Other ascites US GUIDED ABDOMINAL PARACENTESIS Routine 05/10/2025 4:57 PM EDT Other ascites TOTAL PROTEIN, PERITONEAL FLUID Routine 05/10/2025 4:36 PM EDT BODY FLUID, CYTOSPIN, PATHOLOGIST INTERPRETATION Routine 05/10/2025 4:35 PM EDT BODY FLUID CELL COUNT W/ MANUAL DIFFERENTIAL Routine 05/10/2025 4:35 PM EDT POCT GLUCOSE METER UNSOLICITED RESULTS Routine 05/10/2025 3:[address] ABDOMEN PELVIS W IV CONTRAST Routine 05/07/2025 1:23 PM EDT End-stage liver disease (CMS/HCC) PAIN MANAGEMENT, QUANTITATIVE URINE DRUG TESTING Routine 05/07/2025 9:28 AM EDT End-stage liver disease (CMS/HCC) PAIN MANAGEMENT, QUANTITATIVE URINE DRUG TESTING Routine 05/07/2025 9:28 AM EDT End-stage liver disease (CMS/HCC) COMPREHENSIVE URINE DRUG SCREENING,QUALITATI VE ASSAY, >= 27 DRUG CLASSES Routine 05/07/2025 9:28 AM EDT End-stage liver disease (CMS/HCC) ALCOHOL, URINE Routine 05/07/2025 9:28 AM EDT End-stage liver disease (CMS/HCC) ALPHA FETOPROTEIN, SERUM Routine 05/07/2025 8:58 AM EDT End-stage liver disease (CMS/HCC) PROTHROMBIN TIME(PT) / INR Routine 05/07/2025 8:58 AM EDT End-stage liver disease (CMS/HCC) NICOTINE AND COTININE METABOLITE, SERUM, QUANTITATIVE Routine 05/07/2025 8:58 AM EDT End-stage liver disease (CMS/HCC) COMPREHENSIVE METABOLIC PANEL, PLASMA Routine 05/07/2025 8:58 AM EDT End-stage liver disease (CMS/HCC) CBC W/O DIFFERENTIAL Routine 05/07/2025 8:58 AM EDT End-stage liver disease (CMS/HCC) URINALYSIS MICROSCOPIC FOR UA REFLEX STAT 05/03/2025 4:23 PM EDT URINE SUBRAMANIAN PANEL STAT 05/03/2025 4:23 PM EDT URINALYSIS WITH REFLEX MICROSCOPIC STAT 05/03/2025 4:23 PM EDT URINALYSIS WITH REFLEX MICROSCOPIC AND CULTURE STAT 05/03/2025 4:23 PM EDT TROPONIN T, HIGH SENSITIVITY, 2 HOUR, PLASMA Timed 05/03/2025 4:23 PM EDT XR CHEST 1 VIEW STAT 05/03/2025 2:32 PM EDT AMMONIA, PLASMA STAT 05/03/2025 1:50 PM EDT APTT STAT 05/03/2025 1:50 PM EDT PROTHROMBIN TIME(PT) / INR STAT 05/03/2025 1:50 PM EDT TROPONIN T, HIGH SENSITIVITY, 0 HOUR, PLASMA, REFLEX TO 2 HOUR STAT 05/03/2025 1:50 PM EDT CBC WITH AUTO DIFFERENTIAL STAT 05/03/2025 1:50 PM EDT BLOOD GAS PANEL, VENOUS STAT 05/03/2025 1:50 PM EDT COMPREHENSIVE METABOLIC PANEL, PLASMA STAT 05/03/2025 1:50 PM EDT ECG ADULT STAT 05/03/2025 1:14 PM EDT US CHEST Routine 05/02/2025 11:58 AM EDT Other ascites US GUIDED ABDOMINAL PARACENTESIS Routine 05/02/2025 11:58 AM EDT Other ascites BODY FLUID, CYTOSPIN, PATHOLOGIST INTERPRETATION Routine 05/02/2025 11:40 AM EDT GLUCOSE, PERITONEAL FLUID Routine 05/02/2025 11:40 AM EDT TOTAL PROTEIN, PERITONEAL FLUID Routine 05/02/2025 11:40 AM EDT BODY FLUID CELL COUNT W/ MANUAL DIFFERENTIAL Routine 05/02/2025 11:40 AM EDT US CHEST Routine 04/25/2025 12:13 PM EDT Other ascites US GUIDED ABDOMINAL PARACENTESIS Routine 04/25/2025 12:13 PM EDT Other ascites BODY FLUID, CYTOSPIN, PATHOLOGIST INTERPRETATION Routine 04/25/2025 11:18 AM EDT TOTAL PROTEIN, PERITONEAL FLUID Routine 04/25/2025 11:18 AM EDT BODY FLUID CELL COUNT W/ MANUAL DIFFERENTIAL Routine 04/25/2025 11:18 AM EDT XR CHEST 1 VIEW STAT 04/18/2025 1:15 PM EDT US GUIDED THORACENTESIS Routine 04/18/2025 12:27 PM EDT Pleural effusion US GUIDED ABDOMINAL PARACENTESIS Routine 04/18/2025 12:27 PM EDT Other ascites BODY FLUID, CYTOSPIN, PATHOLOGIST INTERPRETATION Routine 04/18/2025 11:35 AM EDT BODY FLUID CELL COUNT W/ MANUAL DIFFERENTIAL Routine 04/18/2025 11:35 AM EDT GLUCOSE, PERITONEAL FLUID Routine 04/18/2025 11:34 AM EDT TOTAL PROTEIN, PERITONEAL FLUID Routine 04/18/2025 11:34 AM EDT XR CHEST 1 VIEW STAT 04/11/2025 11:52 AM EDT US GUIDED THORACENTESIS Routine 04/11/2025 11:35 AM EDT Pleural effusion US GUIDED ABDOMINAL PARACENTESIS Routine 04/11/2025 11:35 AM EDT Other ascites BODY FLUID, CYTOSPIN, PATHOLOGIST INTERPRETATION Routine 04/11/2025 11:26 AM EDT BODY FLUID CELL COUNT W/ MANUAL DIFFERENTIAL Routine 04/11/2025 11:26 AM EDT BODY FLUID, CYTOSPIN, PATHOLOGIST INTERPRETATION Routine 04/11/2025 11:23 AM EDT TOTAL PROTEIN, PERITONEAL FLUID Routine 04/11/2025 11:23 AM EDT BODY FLUID CELL COUNT W/ MANUAL DIFFERENTIAL Routine 04/11/2025 11:23 AM EDT XR CHEST 1 VIEW STAT 04/04/2025 11:11 AM EDT CBC W/O DIFFERENTIAL Routine 04/04/2025 10:42 AM EDT US GUIDED THORACENTESIS Routine 04/04/2025 10:16 AM EDT US GUIDED ABDOMINAL PARACENTESIS Routine 04/04/2025 10:16 AM EDT Other ascites BODY FLUID, CYTOSPIN, PATHOLOGIST INTERPRETATION Routine 04/04/2025 9:21 AM EDT BODY FLUID CELL COUNT W/ MANUAL DIFFERENTIAL Routine 04/04/2025 9:21 AM EDT TOTAL PROTEIN, PERITONEAL FLUID Routine 04/04/2025 9:21 AM EDT PHOSPHORUS, PLASMA Routine 04/04/2025 8:03 AM EDT Age-related osteoporosis without current pathological fracture IONIZED CALCIUM, SERUM Routine 04/04/2025 8:03 AM EDT Age-related osteoporosis without current pathological fracture PTH INTACT TOTAL Routine 04/04/2025 8:03 AM EDT Age-related osteoporosis without current pathological fracture PTH PANEL 1 Routine 04/04/2025 8:03 AM EDT Age-related osteoporosis without current pathological fracture VITAMIN D 25 HYDROXY Routine 04/04/2025 8:03 AM EDT Age-related osteoporosis without current pathological fracture PROTHROMBIN TIME(PT) / INR Routine 04/04/2025 8:03 AM EDT COMPREHENSIVE METABOLIC PANEL, PLASMA Routine 04/04/2025 8:03 AM EDT XR CHEST 1 VIEW STAT 03/28/2025 11:11 AM EDT US GUIDED THORACENTESIS Routine 03/28/2025 10:24 AM EDT Alcoholic cirrhosis of liver with ascites (CMS/HCC) US GUIDED ABDOMINAL PARACENTESIS Routine 03/28/2025 10:24 AM EDT Alcoholic cirrhosis of liver with ascites (CMS/HCC) BODY FLUID, CYTOSPIN, PATHOLOGIST INTERPRETATION Routine 03/28/2025 9:31 AM EDT BODY FLUID CELL COUNT W/ MANUAL DIFFERENTIAL Routine 03/28/2025 9:31 AM EDT BODY FLUID, CYTOSPIN, PATHOLOGIST INTERPRETATION Routine 03/28/2025 9:30 AM EDT PH, PLEURAL FLUID Routine 03/28/2025 9:30 AM EDT GLUCOSE, PLEURAL FLUID Routine 03/28/2025 9:30 AM EDT ALBUMIN, PLEURAL FLUID Routine 03/28/2025 9:30 AM EDT LACTATE DEHYDROGENASE, PLEURAL FLUID Routine 03/28/2025 9:30 AM EDT TOTAL PROTEIN, PLEURAL FLUID Routine 03/28/2025 9:30 AM EDT TOTAL PROTEIN, PERITONEAL FLUID Routine 03/28/2025 9:30 AM EDT BODY FLUID CELL COUNT W/ MANUAL DIFFERENTIAL Routine 03/28/2025 9:30 AM EDT BODY FLUID CULTURE AND GRAM STAIN Routine 03/28/2025 9:30 AM EDT COMPREHENSIVE ORAL EVALUATION - NEW OR ESTABLISHED PATIENT Routine 12/17/2024 2:30 PM EST Liver failure without hepatic coma, unspecified chronicity (CMS/HCC) Caries DEXA BONE DENSITY Routine 11/07/2024 9:09 AM EST End-stage liver disease (CMS/HCC) HEPATITIS C ANTIBODY W/REFLEX TO HCV QUANT PCR STAT 10/22/2024 11:44 AM EST HIV 1/2 ANTIBODY/ANTIGEN SCREEN WITH REFLEX TO HIV I/II DIFFERENTIATION STAT 10/22/2024 11:44 AM EST COLONOSCOPY EXTERNAL RESULT 01/14/2023 CYTO DATA CONVERSION Routine 04/12/2003 12:00 AM EDT from Last 3 Months or Most Recently Relevant to Health Maintenance Results * XR Chest 1 View (06/20/2025 1:38 PM EDT) Only the most recent of11 resultswithin the time period is included. Anatomical Region Laterality Modality Chest Digital Radiogra [...] MD on 06/20/2025 2:13 PM Preeti Andersen LOCAL OPERATOR IMG XR PROCEDURES Final Result * (ABNORMAL) Body Fluid Cell Count w/ Diff - Pleural Right (06/20/2025 12:03 PM EDT) Only the most recent of16 resultswithin the time period is included. Color, Body fluid Red LAB HEMATOLOGY METHOD 06/20/2025 8:20 PM EDT [facility] Appearance, Body fluid Cloudy(A) LAB HEMATOLOGY METHOD 06/20/2025 8:20 PM EDT [facility] Volume, Body fluid 5.8 cc LAB HEMATOLOGY METHOD 06/20/2025 8:20 PM EDT [facility] Fluid Container Tube 2 LAB HEMATOLOGY METHOD 06/20/2025 8:20 PM EDT [facility] Red Blood Cell Count, Body fluid 18,000 uL LAB HEMATOLOGY METHOD 06/20/2025 8:20 PM EDT [facility] Total Nucleated Cell Count, Body fluid 204 uL LAB HEMATOLOGY METHOD 06/20/2025 8:20 PM EDT [facility] Neutrophils %, Body fluid 0 % LAB HEMATOLOGY METHOD 06/20/2025 8:20 PM EDT [facility] Lymphocytes %, Body fluid 91 % LAB HEMATOLOGY METHOD 06/20/2025 8:20 PM EDT [facility] Monocytes/Macro phages %, Body fluid 6 % LAB HEMATOLOGY METHOD 06/20/2025 8:20 PM EDT [facility] Eosinophils %, Body fluid 1 % LAB HEMATOLOGY METHOD 06/20/2025 8:20 PM EDT [facility] Lining/Mesothel ial Cells %, Body fluid 2 % LAB HEMATOLOGY METHOD 06/20/2025 8:20 PM EDT [facility] Neutrophils Absolute (PMN), Body fluid 0 uL LAB HEMATOLOGY METHOD 06/20/2025 8:20 PM EDT [facility] Lymphocytes Absolute, Body fluid 186 uL LAB HEMATOLOGY METHOD 06/20/2025 8:20 PM EDT [facility] Monocytes/Macro phages Absolute, Body fluid 12 uL LAB HEMATOLOGY METHOD 06/20/2025 8:20 PM EDT [facility] Eosinophils Absolute, Body fluid 2 uL LAB HEMATOLOGY METHOD 06/20/2025 8:20 PM EDT [facility] Basophils Absolute, Body fluid 0 uL LAB HEMATOLOGY METHOD 06/20/2025 8:20 PM EDT [facility] [facility] Lining/Mesothel ial Cells Absolute, Body fluid 4 uL LAB HEMATOLOGY METHOD 06/20/2025 8:20 PM EDT [facility] Basophils %, Body fluid 0 % LAB HEMATOLOGY METHOD 06/20/2025 8:20 PM EDT [facility] Body Fluid Structure of right pleural cavity / Unknown Non-blood Collection / Unknown 06/20/2025 12:03 PM EDT 06/20/2025 2:44 PM EDT Preeti Andersen APRN LAB BODY FLUIDS AND STOOLS ORDERABLES NO SPECIMEN TYPE/SOURCE Final Result [facility] [address] [place] [address] * Total Protein, Pleural Fluid - Pleural Right (06/20/2025 12:03 PM EDT) Only the most recent of2 resultswithin the time period is included. Total Protein, Fluid 1 g/dL 06/20/2025 5:36 PM EDT [facility] Pleural Fluid Structure of right pleural cavity / Unknown Non-blood Collection / Unknown 06/20/2025 12:03 PM EDT 06/20/2025 2:44 PM EDT Narrative [facility] - 06/20/2025 5:36 PM EDT This test was developed and its performance characteristics determined by [facility]. The U.S. Food and Drug Administration has not approved or cleared this test. However, FDA clearance or approval is not currently required for clinical use. The results are not intended to be used as the sole means for clinical diagnosis or patient management decisions. Preeti Villalta Andersen LOCAL OPERATOR LAB BODY FLUIDS AND STO OLS ORDERABLES Final Result Performing Organization Address City/[facility]/ZIP Co de Phone Number [facility] [address] [place] [address] * Lactate Dehydrogenase, Pleural Fluid - Right (06/20/2025 12:03 PM EDT) Only the most recent of2 resultswithin the time period is included. LDH, Fluid 57 U/L 06/20/2025 5:36 PM EDT [facility] Pleural Fluid Structure of right pleural cavity / Unknown Non-blood Collection / Unknown 06/20/2025 12:03 PM EDT 06/20/2025 2:44 PM EDT Narrative [facility] - 06/20/2025 5:36 PM EDT [...] the following criteria are present: (1) pleural kpudn-tt-ghqoj protein ratio of >0.5, (2) pleural xnnfv-fx-mqziy LDH ratio of >0.6, or (3) a pleural fluid LDH activity that is >2/3 the upper limit of a normal serum LDH activity. Light's criteria may misclassify ~25% of transudates as exudates in heart failure. These can be identified by calculating a ttbeo-sy-mmoaxir albumin gradient (>1.2 g/dL) and/or a qsgwp-mj-kpqnt protein gradient (>3.1 g/dL). Preeti Andersen LOCAL OPERATOR LAB BODY FLUIDS AND STO OLS ORDERABLES Final Result Performing Organization Address [facility] Co de Phone Number [facility] [address] [place] [address] * Body fluid, cytospin, pathologist interpretation (06/20/2025 12:03 PM EDT) Only the most recent of16 resultswithin the time period is included. Specimen Type Body Fluid LAB HEMATOLOGY METHOD 06/21/2025 4:37 PM EDT [facility] Specimen Source, Body Fluid Pleural, Right LAB HEMATOLOGY METHOD 06/21/2025 4:37 PM EDT [facility] Clinical Diagnosis, Body Fluid Pleural effusion LAB HEMATOLOGY METHOD 06/21/2025 4:37 PM EDT [facility] Interpretation , Body Fluid No evidence of malignancy Chronic inflammatory cells Lymphocytosis Moderate blood A resident was involved in the service. I attest I examined the relevant preparations for the specimens and confirmed the diagnosis or interpretation. 06/21/2025 4:37 PM EDT [facility] Pathologist Signature, Body Fluid 06/21/2025 4:37 PM EDT [facility] Comment:Reviewed by: Kadie dobbs MD LAB CP ASR DISCLAIMER Yes 06/21/2025 4:37 PM EDT [facility] Body Fluid Structure of right pleural cavity / Unknown Non-blood Collection / Unknown 06/20/2025 12:03 PM EDT 06/20/2025 2:44 PM EDT Preeti Andersen APRN LAB BODY FLUIDS AND STO OLS ORDERABLES Final Result [facility] [address] [place] [address] * Body Fluid Culture and Gram Stain - Pleural Right (06/20/2025 12:03 PM EDT) Only the most recent of2 resultswithin the time period is included. Culture No growth at day 4 2024 10:34 AM EDT [facility] Gram Stain Result No organisms seen 06/23/2025 10:34 AM EDT [facility] Gram Stain Result No polymorphonuclear leukocytes seen 06/23/2025 10:34 AM EDT [facility] Pleural Fluid Specimen from pleura obtained by thoracentesis / Unknown Non-blood Collection / Unknown 06/20/2025 12:03 PM EDT 06/20/2025 2:53 PM EDT Preeti Andersen LOCAL OPERATOR LAB MICROBIOLOGY - GENE RAL ORDERABLES Final Result Performing Organization Address City/[facility]/ZIP Co de Phone Number [facility] [address] [place] [address] * Albumin - Ascites (06/20/2025 11:59 AM EDT) Only the most recent of2 resultswithin the time period is included. Albumin, Peritoneal Fluid 0.4 g/dL 06/20/2025 4:25 PM EDT [facility] Peritoneal Fluid Peritoneal cavity structure / Unknown Non-blood Collection / Unknown 06/20/2025 11:59 AM EDT 06/20/2025 2:42 PM EDT Narrative [facility] - 06/20/2025 4:25 PM EDT REPORTING RESULTS Reference Values: No established reference interval. Results should be interpreted in comparison to the concentration in blood and in conjunction with the clinical context. This test was developed and its performance characteristics determined by [facility]. The U.S. Food and Drug Administration has not approved or cleared this test; however, FDA clearance or approval is not currently required for clinical use. The results are not intended to be used as the sole means for clinical diagnosis or patient management decisions. Preeti Andersen LOCAL OPERATOR LAB BODY FLUIDS AND STO OLS ORDERABLES Final Result Performing Organization Address City/[facility] Co de Phone Number [address] [address] * Protein - Ascites (06/20/2025 11:59 AM EDT) Only the most recent of12 resultswithin the time period is included. Total Protein, Fluid 0.7 g/dL 06/20/2025 4:25 PM EDT [facility] Peritoneal Fluid Peritoneal cavity structure / Unknown Non-blood Collection / Unknown 06/20/2025 11:59 AM EDT 06/20/2025 2:42 PM EDT Narrative [facility] - 06/20/2025 4:25 PM EDT This test was developed and its performance characteristics determined by [facility]. The U.S. Food and Drug Administration has not approved or cleared this test. However, FDA clearance or approval is not currently required for clinical use. The results are not intended to be used as the sole means for clinical diagnosis or patient management decisions. Preeti Andersen APRN LAB BODY FLUIDS AND STO OLS ORDERABLES Final Result [facility] [address] [place] [address] * US Guided Abdominal Paracentesis (06/13/2025 1:18 PM EDT) Only the most recent of11 resultswithin the time period is included. Anatomical Region Laterality Modality Abdomen Ultrasound Impressions [...] Narrative 06/13/2025 3:40 PM EDT CLINICAL INDICATION: Monika Zimmer is a 64 y.o. 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 TECHNIQUE: Product/Industry Consultant: Shaniqua Mccurdy APRN Secondary Hog Buyer: None. Nurse: Bao Technologist: Kalina Phillips Dose: [...] Marcel Magaña MD - 06/13/2025 CLINICAL INDICATION: Monika Zimmer is a 64 y.o. 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 TECHNIQUE: Product/Industry Consultant: Shaniqua Mccurdy APRN Secondary Hog Buyer: None. Nurse: Bao Technologist: Kalina Phillips Dose: [...] on 06/13/2025 3:40 PM us Marianna N Evan LOCAL OPERATOR IMG US PROCEDURES Final Resu lt * US Guided Thoracentesis (06/13/2025 1:18 PM EDT) Only the most recent of9 resultswithin the time period is included. Anatomical Region Laterality Modality Chest Ultrasound Impressions [...] Narrative 06/13/2025 3:40 PM EDT CLINICAL INDICATION: Monika Zimmer is a 64 y.o. 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 TECHNIQUE: Product/Industry Consultant: Shaniqua Mccurdy APRN Secondary Hog Buyer: None. Nurse: Bao Technologist: Kalina Phillips Dose: [...] Marcel Magaña MD - 06/13/2025 CLINICAL INDICATION: Monika Zimmer is a 64 y.o. 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 TECHNIQUE: Product/Industry Consultant: Shaniqua cMcurdy APRN Secondary Hog Buyer: None. Nurse: Bao Technologist: Kalina Phillips Dose: [...] IMG US PROCEDURES Final Resu lt * Glucose - Ascites (06/13/2025 12:35 PM EDT) Only the most recent of3 resultswithin the time period is included. Glucose, Fluid 179 mg/dL 06/13/2025 4:01 PM EDT [facility] Peritoneal Fluid Peritoneal cavity structure / Unknown Non-blood Collection / Unknown 06/13/2025 12:35 PM EDT 06/13/2025 3:20 PM EDT Narrative [facility] - 06/13/2025 4:01 PM EDT [...] Glucose < 50 mg/dL. us Shaniqua Mccurdy LOCAL OPERATOR LAB BODY FLUIDS AND STOOLS O RDERABLES Final Result Performing Organization Address [facility]/ZIP Co de Phone Number [facility] [address] [place] [address] * Bone Specific Alkaline Phosphatase (06/11/2025 9:24 AM EDT) [facility] Bone Specific Alkaline Phosphatase 31.6 ug/L 06/11/2025 10:45 AM EDT [facility] Comment: BSAP (Ostase) Reference Values, Female, age 18 years and up: Premenopausal: 4.5 to 16.9 ug/L Postmenopausal: 7.0 to 22.4 ug/L Blood Venous blood specimen / Unknown Venipuncture / Unknown 06/11/2025 9:24 AM EDT 06/11/2025 9:55 AM EDT us Ar Dominique MD LAB REF LAB BLOOD AND FLUID OR D Final Result Performing Organization Address City/[facility]/[place] [address] * Pain Management, Quantitative Urine Drug Testing (06/11/2025 9:24 AM EDT) Only the most recent of2 resultswithin the time period is included. Alpha [place] Alprazolam <20 <20 ng/mL 06/13 1:50 PM EDT [facility] Alpha [place] Midazolam <20 <20 ng/mL 2024 1:50 PM EDT [facility] [place] Triazolam <20 <20 ng/mL 2024 1:50 PM EDT [facility] Alprazolam <10 <10 ng/mL 06/13/2025 1:50 PM EDT [facility] Aminoclonazepam <20 <20 ng/mL 1:50 PM EDT [facility] Amphetamine <50 <50 ng/mL 06/13/2025 1:50 PM EDT [facility] Benzoylecgonine <50 <50 ng/mL 1:50 PM EDT [facility] Buprenorphine <10 <10 ng/mL 06/13/2025 1:50 PM EDT [facility] Buprenorphine Glucuronide <50 <50 ng/mL 06/13/2025 1:50 PM EDT [facility] Butalbital <50 <50 ng/mL 06/13/2025 1:50 PM EDT [facility] 9 Carboxy THC <10 <10 ng/mL 06/13/2025 1:50 PM EDT [facility] 9 Carboxy THC Glucuronide <25 <25 ng/mL 06/13/2025 1:50 PM EDT [facility] Clonazepam <10 <10 ng/mL 06/13/2025 1:50 PM EDT [facility] Codeine <50 <50 ng/mL 06/13/2025 1:50 PM EDT [facility] Codeine Glucuronide <50 <50 ng/mL 06/13 1:50 PM EDT [facility] Cyclobenzaprine <50 <50 ng/mL 1:50 PM EDT [facility] Desmethyl Tramadol <50 <50 ng/mL 2024 1:50 PM EDT [facility] Diazepam <10 <10 ng/mL 06/13/2025 1:50 PM EDT [facility] EDDP - Methadone Metabolite <50 <50 ng/mL 06/13/2025 1:50 PM EDT [facility] Fentanyl <1 <1 ng/mL 06/13/2025 1:50 PM EDT [facility] Hydrocodone <50 <50 ng/mL 06/13/2025 1:50 PM EDT [facility] Hydromorphone <50 <50 ng/mL 06/13/2025 1:50 PM EDT [facility] Hydromorphone Glucuronide <50 <50 ng/mL 06/13/2025 1:50 PM EDT [facility] Lorazepam <20 <20 ng/mL 06/13/2025 1:50 PM EDT [facility] Lorazepam Glucuronide <50 <50 ng/mL 06/13/2025 1:50 PM EDT [facility] MDA <50 <50 ng/mL 06/13/2025 1:50 PM EDT [facility] MDMA <50 <50 ng/mL 06/13/2025 1:50 PM EDT [facility] Meperidine <50 <50 ng/mL 06/13/2025 1:50 PM EDT [facility] Methadone <50 <50 ng/mL 06/13/2025 1:50 PM EDT [facility] Methamphetamine <50 <50 ng/mL 1:50 PM EDT [facility] Methylphenidate <50 <50 ng/mL 1:50 PM EDT [facility] 6 Monoacetyl morphine <10 <10 ng/mL 06/13/2025 1:50 PM EDT [facility] Morphine <50 <50 ng/mL 06/13/2025 1:50 PM EDT [facility] Morphine Glucuronide <50 <50 ng/mL 05/22 1:50 PM EDT [facility] Naloxone <50 <50 ng/mL 06/13/2025 1:50 PM EDT [facility] Naloxone Glucuronide <50 <50 ng/mL 05/22 1:50 PM EDT [facility] Norbuprenorphine <10 <10 ng/mL 06/13/20 1:50 PM EDT [facility] Norbuprenorphine Glucuronide <50 <50 ng/mL 06/13/2025 1:50 PM EDT [facility] Nordiazepam <20 <20 ng/mL 06/13/2025 1:50 PM EDT [facility] Norfentanyl <2 <2 ng/mL 06/13/2025 1:50 PM EDT [facility] Normeperidine <50 <50 ng/mL 06/13/2025 1:50 PM EDT [facility] PCP Quant, Ur <50 <50 ng/mL 06/13/2025 1:50 PM EDT [facility] Phenobarbital <50 <50 ng/mL 06/13/2025 1:50 PM EDT [facility] Oxazepam <20 <20 ng/mL 06/13/2025 1:50 PM EDT [facility] Oxazepam Glucuronide <50 <50 ng/mL 05/22 1:50 PM EDT [facility] Oxycodone <50 <50 ng/mL 06/13/2025 1:50 PM EDT [facility] Oxymorphone <50 <50 ng/mL 06/13/2025 1:50 PM EDT [facility] Oxymorphone Glucuronide <50 <50 ng/mL 06/13/2025 1:50 PM EDT [facility] Secobarbital <50 <50 ng/mL 06/13/2025 1:50 PM EDT [facility] Tramadol <50 <50 ng/mL 06/13/2025 1:50 PM EDT [facility] Temazepam <20 <20 ng/mL 06/13/2025 1:50 PM EDT [facility] Temazepam Glucuronide <50 <50 ng/mL 06/13/2025 1:50 PM EDT [facility] Urine Urine specimen obtained by clean catch procedure / Unknown Non-blood Collection / Unknown 06/11/2025 9:24 AM EDT 06/11/2025 9:57 AM EDT Narrative [facility] - 06/13/2025 1:50 PM EDT This report is intended for use in clinical monitoring or management of patients. It is NOT intended for use in employment-related drug testing. For pain management, the absence of expected drug(s) and/or drug metabolite(s) may indicate non-compliance, inappropriate timing of specimen collection relative to drug administration, poor drug absorption, or limitations of testing. Interpretive questions should be directed to the laboratory. Test performed by LC-MS/MS at the [facility]. This test was developed and its performance characteristics determined by [facility]. It has not been cleared or approved by the FDA. The laboratory is regulated under CLIA as qualified to perform high-complexity testing. This test is used for clinical purposes. Gerson Arora MD LAB URINE ORDERABLES Final Resul t Performing Organization Address City/[facility]/ZIP Co de Phone Number [facility] [address] [place] [address] * C-Telopeptide (06/11/2025 9:24 AM EDT) C Telopeptide Beta Cross Linked Serum Result 1083 pg/mL 06/13/2025 1:13 AM EDT [facility]) Blood Venous blood specimen / Unknown Venipuncture / Unknown 06/11/2025 9:24 AM EDT 06/11/2025 9:54 AM EDT Narrative [facility]) - 06/13/2025 1:13 AM EDT Premenopausal Females: 136-689 pg/mL Postmenopausal Females: 177-1015 pg/mL REFERENCE INTERVAL: C-Telopeptide, [id number], Serum Access complete set of age- and/or gender-specific reference intervals for this test in the [employer] [facility] ([employer]). Performed By: [facility] [address] [place] [id number] Contact Lens Manufacturer: Tank Orona MD, PhD CLIA Number: [id number] Ar Dominique MD LAB BLOOD ORDERABLES Final Res ult Performing Organization Address City/[facility]/ZIP Co de Phone Number [facility]) [address] [place] [address] * Nicotine Cotinine Metabolite (06/11/2025 9:24 AM EDT) Only the most recent of2 resultswithin the time period is included. NICOTINE <5 <5 ng/mL 06/13/2025 6:2 3 PM EDT [facility] Cotinine <5 <5 ng/mL 06/13/2025 6:2 3 PM EDT [facility] Blood Venous blood specimen / Unknown Venipuncture / Unknown 06/11/2025 9:24 AM EDT 06/11/2025 9:55 AM EDT Narrative [facility] - 06/13/2025 6:23 PM EDT Testing performed by LC-MS/MS at the [facility]. This test was developed and its performance characteristics determined by [facility]. This assay has not been cleared by the FDA. The laboratory is regulated under CLIA as qualified to perform high-complexity testing. This test is used for clinical purposes. Gerson Arora MD LAB BLOOD ORDERABLES Final Resul t [facility] [address] [place] [address] * Osteocalcin by ECIA (06/11/2025 9:24 AM EDT) OSTEOCALCIN BY ECIA 28 8 - 36 ng/mL 06/13/2025 1:13 AM EDT [employer] ([facility]) Blood Venous blood specimen / Unknown Venipuncture / Unknown 06/11/2025 9:24 AM EDT 06/11/2025 10:00 AM EDT Narrative [facility] ([facility]) - 06/13/2025 1:13 AM EDT INTERPRETIVE INFORMATION: Osteocalcin by ECIA In patients with renal failure, the osteocalcin result may be directly elevated, due to impaired clearance, and/or indirectly elevated due to renal osteodystrophy. Access complete set of age- and/or gender-specific reference intervals for this test in the [employer] [facility] Directory ([employer]). Performed By: [facility] [address] [place] [id number] Contact Lens Manufacturer: Tank Orona MD, PhD CLIA Number: [id number] us Ar Dominique MD LAB BLOOD ORDERABLES Final Res ult [facility]) [address] [place] [address] * Alcohol Urine (06/11/2025 9:24 AM EDT) Only the most recent of2 resultswithin the time period is included. Alcohol Urine Negative Negative 06/11/2025 2:20 PM EDT [facility] Urine Urine specimen obtained by clean catch procedure / Unknown Non-blood Collection / Unknown 06/11/2025 9:24 AM EDT 06/11/2025 9:57 AM EDT Narrative [facility] - 06/11/2025 2:20 PM EDT The correlation between urine and serum ethanol concentration is highly variable. Test performed by Gas Chromatography at the [facility]. This test was developed and its performance characteristics determined by [facility]. It has not been cleared or approved by the FDA.The laboratory is regulated under CLIA as qualified to perform high-complexity testing. This test is used for clinical purposes only. us Gerson Arora MD LAB URINE ORDERABLES Final Resul t Performing Organization Address City/[facility]/ZIP Co de Phone Number [facility] [address] [place] [address] * (ABNORMAL) Comprehensive Urine Drug Screening, Qualitative Assay, >= 27 Drug Classes (59:24 AM EDT) Only the most recent of2 resultswithin the time period is included. Acetaminophen Negative Negative 06/11/2025 4:37 PM EDT [facility] Alprazolam Negative Negative 06/11/2025 4:37 PM EDT [facility] Amantadine Negative Negative 06/11/2025 4:37 PM EDT [facility] Amitriptyline Negative Negative 06/11/2025 4:37 PM EDT [facility] Amphetamine Negative Negative 06/11/2025 4:37 PM EDT [facility] Atenolol Negative Negative 06/11/2025 4:37 PM EDT [facility] Benzoylecgonine Negative Negative 4:37 PM EDT [facility] Bisoprolol Negative Negative 06/11/2025 4:37 PM EDT [facility] Bupropion Negative Negative 06/11/2025 4:37 PM EDT [facility] Butalbital Negative Negative 06/11/2025 4:37 PM EDT [facility] Carbamazepine Negative Negative 06/11/2025 4:37 PM EDT [facility] Carisoprodol Negative Negative 06/11/2025 4:37 PM EDT [facility] Chlorpheniramine Negative Negative 06/11/20 4:37 PM EDT [facility] Citalopram Negative Negative 06/11/2025 4:37 PM EDT [facility] Clindamycin Negative Negative 06/11/2025 4:37 PM EDT [facility] Clonidine Negative Negative 06/11/2025 4:37 PM EDT [facility] Clopidogrel / Ticlopidine Negative Negative 06/11/2025 4:37 PM EDT [facility] Cocaethylene Negative Negative 06/11/2025 4:37 PM EDT [facility] Cocaine Negative Negative 06/11/2025 4:37 PM EDT [facility] Codeine Negative Negative 06/11/2025 4:37 PM EDT [facility] Cyclobenzaprine Negative Negative 4:37 PM EDT [facility] Desvenlafaxine Negative Negative 06/11/2025 4:37 PM EDT [facility] Dextromethorphan Negative Negative 06/11/20 4:37 PM EDT [facility] Diazepam Negative Negative 06/11/2025 4:37 PM EDT [facility] Diltiazem Negative Negative 06/11/2025 4:37 PM EDT [facility] Diphenhydramine Negative Negative 4:37 PM EDT [facility] Doxepine Negative Negative 06/11/2025 4:37 PM EDT [facility] Doxylamine Negative Negative 06/11/2025 4:37 PM EDT [facility] EDDP-Methadone metabolite Negative Negative 06/11/2025 4:37 PM EDT [facility] Fentanyl Negative Negative 06/11/2025 4:37 PM EDT [facility] Fluconazole Negative Negative 06/11/2025 4:37 PM EDT [facility] Fluoxetine Negative Negative 06/11/2025 4:37 PM EDT [facility] Guaifenesin Negative Negative 06/11/2025 4:37 PM EDT [facility] Haloperidol Negative Negative 06/11/2025 4:37 PM EDT [facility] Heroin/6-SANA Negative Negative 06/11/2025 4:37 PM EDT [facility] Hydrocodone Negative Negative 06/11/2025 4:37 PM EDT [facility] Hydroxyzine / Cetirizine metabolite Negative Negative 06/11/2025 4:37 PM EDT [facility] Ibuprofen Negative Negative 06/11/2025 4:37 PM EDT [facility] Imipramine Negative Negative 06/11/2025 4:37 PM EDT [facility] Ketamine Negative Negative 06/11/2025 4:37 PM EDT [facility] Labetolol Negative Negative 06/11/2025 4:37 PM EDT [facility] Lamotrigine Negative Negative 06/11/2025 4:37 PM EDT [facility] Levetiracetam Negative Negative 06/11/2025 4:37 PM EDT [facility] Lidocaine Positive(A) Negative 06/11/2025 4:37 PM EDT [facility] MDA Negative Negative 06/11/2025 4:37 PM EDT [facility] MDMA Negative Negative 06/11/2025 4:37 PM EDT [facility] Memantine Negative Negative 06/11/2025 4:37 PM EDT [facility] Meperidine Negative Negative 06/11/2025 4:37 PM EDT [facility] Meprobamate Negative Negative 06/11/2025 4:37 PM EDT [facility] Metaxalone Negative Negative 06/11/2025 4:37 PM EDT [facility] Methamphetamine Negative Negative 4:37 PM EDT [facility] Methocarbamol Negative Negative 06/11/2025 4:37 PM EDT [facility] Methylecgonine Negative Negative 06/11/2025 4:37 PM EDT [facility] Metoclopramide Negative Negative 06/11/2025 4:37 PM EDT [facility] Metoprolol Negative Negative 06/11/2025 4:37 PM EDT [facility] Metronidazole Negative Negative 06/11/2025 4:37 PM EDT [facility] Midazolam Negative Negative 06/11/2025 4:37 PM EDT [facility] Midazolam Metabolite Negative Negative 06/11/2025 4:37 PM EDT [facility] Mirtazapine Negative Negative 06/11/2025 4:37 PM EDT [facility] Misc Test Result Negative Negative 06/11/20 4:37 PM EDT [facility] Naproxen Negative Negative 06/11/2025 4:37 PM EDT [facility] Nefazodone Negative Negative 06/11/2025 4:37 PM EDT [facility] Norfentanyl Negative Negative 06/11/2025 4:37 PM EDT [facility] Nortriptyline Negative Negative 06/11/2025 4:37 PM EDT [facility] Ordanstron Negative Negative 06/11/2025 4:37 PM EDT [facility] Oxcarbazepine Negative Negative 06/11/2025 4:37 PM EDT [facility] Oxycodone Negative Negative 06/11/2025 4:37 PM EDT [facility] Paroxethine Negative Negative 06/11/2025 4:37 PM EDT [facility] Phenobarbital Negative Negative 06/11/2025 4:37 PM EDT [facility] Phentermine Negative Negative 06/11/2025 4:37 PM EDT [facility] Phenytoin Negative Negative 06/11/2025 4:37 PM EDT [facility] Primidone Negative Negative 06/11/2025 4:37 PM EDT [facility] Promethazine Negative Negative 06/11/2025 4:37 PM EDT [facility] Propofol Negative Negative 06/11/2025 4:37 PM EDT [facility] Propranolol Negative Negative 06/11/2025 4:37 PM EDT [facility] Quetiapine Negative Negative 06/11/2025 4:37 PM EDT [facility] Quinine Negative Negative 06/11/2025 4:37 PM EDT [facility] Rantidine Negative Negative 06/11/2025 4:37 PM EDT [facility] Sertraline Negative Negative 06/11/2025 4:37 PM EDT [facility] Spironolactone Negative Negative 06/11/2025 4:37 PM EDT [facility] Tizanidine Negative Negative 06/11/2025 4:37 PM EDT [facility] Topiramate Negative Negative 06/11/2025 4:37 PM EDT [facility] Tramadol Negative Negative 06/11/2025 4:37 PM EDT [facility] Trazadone/ Trazadone metabolite Negative Negative 06/11/2025 4:37 PM EDT [facility] Trimethoprim Negative Negative 06/11/2025 4:37 PM EDT [facility] Valproic Acid Negative Negative 06/11/2025 4:37 PM EDT [facility] Venlafaxine Negative Negative 06/11/2025 4:37 PM EDT [facility] Verapamil Negative Negative 06/11/2025 4:37 PM EDT [facility] Zolpidem Negative Negative 06/11/2025 4:37 PM EDT [facility] Xylazine Negative Negative 06/11/2025 4:37 PM EDT [facility] Urine Urine specimen obtained by clean catch procedure / Unknown Non-blood Collection / Unknown 06/11/2025 9:24 AM EDT 06/11/2025 9:56 AM EDT us Gerson Arora MD LAB URINE ORDERABLES Final Resul t [facility] [address] [facility] [place] [address] * (ABNORMAL) Protime-INR (06/11/2025 9:24 AM EDT) Only the most recent of6 resultswithin the time period is included. Prothrombin Time 20.9(H) 12.0 - 14.3 sec LAB COAGULATION METHOD 06/11/2025 10:19 AM EDT [facility] INR 1.8(H) 0.9 - 1.1 LAB COAGULATION METHOD 06/11/2025 10:19 AM EDT [facility] Blood Venous blood specimen / Unknown Venipuncture / Unknown 06/11/2025 9:24 AM EDT 06/11/2025 9:55 AM EDT Narrative [facility] - 06/11/2025 10:19 AM EDT OPTIMAL INR RANGES FOR PATIENT ON ORAL ANTICOAGULANT THERAPY Prevention of venous thromboembolism INR 2.0 to 3.0 In patients with heart disease: Atrial fibrillation INR 2.0 to 3.0 Valvular heart disease INR 2.0 to 3.0 Tissue heart valves INR 2.0 to 3.0 Mechanical prosthetic valves INR 2.5 to 3.5 Prevention of recurrent AL INR 2.5 to 3.5 us Gerson Arora MD LAB BLOOD ORDERABLES Final Resul t [facility] [address] [place] [address] * (ABNORMAL) CBC w/o differential (06/11/2025 9:24 AM EDT) Only the most recent of4 resultswithin the time period is included. WBC Count 4.49 3.70 - 10.30 10*3/uL LAB HEMATOLOGY METHOD 06/11/2025 10:12 AM EDT [facility] RBC Count 3.17(L) 3.90 - 5.20 10*6/uL LAB HEMATOLOGY METHOD 06/11/2025 10:12 AM EDT [facility] HGB 10.0(L) 11.2 - 15.7 g/dL LAB HEMATOLOGY METHOD 06/11/2025 10:12 AM EDT [facility] HCT 31.0(L) 34.0 - 45.0 % LAB HEMATOLOGY METHOD 06/11/2025 10:12 AM EDT [facility] Platelet Count 68(L) 155 - 369 10*3/uL LAB HEMATOLOGY METHOD 06/11/2025 10:12 AM EDT [facility] MCV 98 79 - 98 fL LAB HEMATOLOGY METHOD 06/11/2025 10:12 AM EDT [facility] MCH 31.5 26.0 - 32.0 pg LAB HEMATOLOGY METHOD 06/11/2025 10:12 AM EDT [facility] MCHC 32.3 30.7 - 35.5 g/dL LAB HEMATOLOGY METHOD 06/11/2025 10:12 AM EDT [facility] RDW 17.3(H) 11.5 - 14.5 % LAB HEMATOLOGY METHOD 06/11/2025 10:12 AM EDT [facility] MPV 10.1 8.8 - 12.5 fL LAB HEMATOLOGY METHOD 06/11/2025 10:12 AM EDT [facility] nRBC 0.0 <=0.0 per 100 WBCs LAB HEMATOLOGY METHOD 06/11/2025 10:12 AM EDT [facility] Blood Venous blood specimen / Unknown Venipuncture / Unknown 06/11/2025 9:24 AM EDT 06/11/2025 9:56 AM EDT us Gerson Arora MD LAB BLOOD ORDERABLES Final Resul t Performing Organization Address City/[facility] de Phone Number [facility] [address] [place] [address] * Phosphorus, Plasma (06/11/2025 9:24 AM EDT) Only the most recent of2 resultswithin the time period is included. Phosphorus, Plasma 4.0 2.5 - 4.5 mg/dL 06/11/2025 10:24 AM EDT [facility] Blood Venous blood specimen / Unknown Venipuncture / Unknown 06/11/2025 9:24 AM EDT 06/11/2025 9:54 AM EDT us Ar Dominique MD LAB BLOOD ORDERABLES Final Res ult Performing Organization Address City/[facility]/ZIP Co de Phone Number [facility] [address] [place] [address] * (ABNORMAL) Comprehensive metabolic panel (06/11/2025 9:24 AM EDT) Only the most recent of6 resultswithin the time period is included. Glucose, Plasma 238(H) 74 - 99 mg/dL 06/11/2025 10:24 AM EDT [facility] BUN, Plasma 40(H) 8 - 23 mg/dL 06/11/2025 10:24 AM EDT [facility] Creatinine, Plasma 1.58(H) 0.60 - 1.10 mg/dL 06/11/2025 10:24 AM EDT [facility] BUN/Creatinine Ratio 25 06/11/2025 10:24 AM EDT [facility] Sodium, Plasma 137 136 - 145 mmol/L 06/11/2025 10:24 AM EDT [facility] Potassium, Plasma 4.3 3.6 - 4.9 mmol/L 06/11/2025 10:24 AM EDT [facility] Chloride, Plasma 108(H) 97 - 107 mmol/L 06/11/2025 10:24 AM EDT [facility] CO2, Plasma 18(L) 22 - 29 mmol/L 06/11/2025 10:24 AM EDT [facility] Anion Gap 11 6 - 16 mmol/L 06/11/2025 10:24 AM EDT [facility] Total Calcium, Plasma 8.5(L) 8.9 - 10.2 mg/dL 06/11/2025 10:24 AM EDT [facility] Total Protein 7.2 6.3 - 7.9 g/dL 06/11/2025 10:24 AM EDT [facility] Albumin, Plasma 3.3(L) 3.5 - 5.2 g/dL 06/11/2025 10:24 AM EDT [facility] AST, Plasma 53(H) 10 - 35 U/L 06/11/2025 10:24 AM EDT [facility] ALT, Plasma 21 10 - 35 U/L 06/11/2025 10:24 AM EDT [facility] Alkaline Phosphatase, Plasma 211(H) 46 - 142 U/L 06/11/2025 10:24 AM EDT [facility] Total Bilirubin, Plasma 2.8(H) 0.2 - 1.1 mg/dL 06/11/2025 10:24 AM EDT [facility] eGFRcr 36.9 mL/min/1.7 3m*2 06/11/2025 10:24 AM EDT [facility] Comment:Reported eGFRcr in m L/min/1.73m2 is based the CKD-EPI 2020 equation that does not use a race coefficient. Blood Venous blood specimen / Unknown Venipuncture / Unknown 06/11/2025 9:24 AM EDT 06/11/2025 9:54 AM EDT us Gerson Arora MD LAB BLOOD ORDERABLES Final Resul t [facility] [address] [place] [address] * (ABNORMAL) CBC and Differential (06/05/2025 3:52 PM EDT) Only the most recent of3 resultswithin the time period is included. WBC Count 4.22 3.70 - 10.30 10*3/uL LAB HEMATOLOGY METHOD 06/05/2025 6:35 PM EDT [facility] RBC Count 3.21(L) 3.90 - 5.20 10*6/uL LAB HEMATOLOGY METHOD 06/05/2025 6:35 PM EDT [facility] HGB 10.0(L) 11.2 - 15.7 g/dL LAB HEMATOLOGY METHOD 06/05/2025 6:35 PM EDT [facility] HCT 31.4(L) 34.0 - 45.0 % LAB HEMATOLOGY METHOD 06/05/2025 6:35 PM EDT [facility] Platelet Count 57(L) 155 - 369 10*3/uL LAB HEMATOLOGY METHOD 06/05/2025 6:35 PM EDT [facility] MCV 98 79 - 98 fL LAB HEMATOLOGY METHOD 06/05/2025 6:35 PM EDT [facility] MCH 31.2 26.0 - 32.0 pg LAB HEMATOLOGY METHOD 06/05/2025 6:35 PM EDT [facility] MCHC 31.8 30.7 - 35.5 g/dL LAB HEMATOLOGY METHOD 06/05/2025 6:35 PM EDT [facility] RDW 17.9(H) 11.5 - 14.5 % LAB HEMATOLOGY METHOD 06/05/2025 6:35 PM EDT [facility] MPV 11.2 8.8 - 12.5 fL LAB HEMATOLOGY METHOD 06/05/2025 6:35 PM EDT [facility] nRBC 0.0 <=0.0 per 100 WBCs LAB HEMATOLOGY METHOD 06/05/2025 6:35 PM EDT [facility] Differential Type Automated LAB HEMATOLOGY METHOD 06/05/2025 6:35 PM EDT [facility] Neutrophils % 64 % LAB HEMATOLOGY METHOD 06/05/2025 6:35 PM EDT [facility] Lymphocytes % 17 % LAB HEMATOLOGY METHOD 06/05/2025 6:35 PM EDT [facility] Monocytes % 15 % LAB HEMATOLOGY METHOD 06/05/2025 6:35 PM EDT [facility] Eosinophils % 3 % LAB HEMATOLOGY METHOD 06/05/2025 6:35 PM EDT [facility] Basophils % 1 % LAB HEMATOLOGY METHOD 06/05/2025 6:35 PM EDT [facility] Immature Granulocytes % 0 % LAB HEMATOLOGY METHOD 06/05/2025 6:35 PM EDT [facility] Neutrophils Absolute 2.71 1.60 - 6.10 10*3/uL LAB HEMATOLOGY METHOD 06/05/2025 6:35 PM EDT [facility] Lymphocytes Absolute 0.71(L) 1.20 - 3.90 10*3/uL LAB HEMATOLOGY METHOD 06/05/2025 6:35 PM EDT [facility] Monocytes Absolute 0.65 0.30 - 0.90 10*3/uL LAB HEMATOLOGY METHOD 06/05/2025 6:35 PM EDT [facility] Eosinophils Absolute 0.11 0.00 - 0.50 10*3/uL LAB HEMATOLOGY METHOD 06/05/2025 6:35 PM EDT [facility] Basophils Absolute 0.03 0.00 - 0.10 10*3/uL LAB HEMATOLOGY METHOD 06/05/2025 6:35 PM EDT [facility] Immature Granulocytes Absolute 0.01 0.00 - 0.06 10*3/uL LAB HEMATOLOGY METHOD 06/05/2025 6:35 PM EDT [facility] Blood Venous blood specimen / Unknown Venipuncture / Unknown 06/05/2025 3:52 PM EDT 06/05/2025 3:52 PM EDT Narrative [facility] - 06/05/2025 6:35 PM EDT Therapeutic decision making should be based on absolute values, rather than percentages. Alvarez Zimmer MD LAB BLOOD ORDERABLES Final Res ult Performing Organization Address City/[facility]/ZIP Co de Phone Number [facility] [address] [place] [address] * (ABNORMAL) Prealbumin, Plasma (06/05/2025 3:52 PM EDT) Prealbumin, Plasma 6.6(L) 20.0 - 41.0 mg/dL 06/05/2025 6:41 PM EDT [facility] Blood Venous blood specimen / Unknown Venipuncture / Unknown 06/05/2025 3:52 PM EDT 06/05/2025 3:52 PM EDT Alvarez Zimmer MD LAB BLOOD ORDERABLES Final Res ult Performing Organization Address [facility] Co de Phone Number [facility] [address] [place] [address] * (ABNORMAL) Iron, Plasma (06/05/2025 3:52 PM EDT) Iron, Plasma 165(H) 30 - 160 ug/dL 06/05/2025 6:41 PM EDT [facility] Blood Venous blood specimen / Unknown Venipuncture / Unknown 06/05/2025 3:52 PM EDT 06/05/2025 3:52 PM EDT Alvarez Zimmer MD LAB BLOOD ORDERABLES Final Res ult Performing Organization Address City/[facility]/ZIP Co de Phone Number [facility] [address] [place] [address] * (ABNORMAL) Ferritin, Serum (06/05/2025 3:52 PM EDT) Pathologist [facility] Ferritin, Serum 280(H) 13 - 150 ng/mL 06/05/2025 6:53 PM EDT [facility] Blood Venous blood specimen / Unknown Venipuncture / Unknown 06/05/2025 3:52 PM EDT 06/05/2025 3:52 PM EDT us Alvarez Zimmer MD LAB [place] [address] * (ABNORMAL) Conjugated Bilirubin, Plasma (06/05/2025 3:52 PM EDT) [facility] Conjugated Bilirubin, Plasma 1.5(H) <=0.3 mg/dL 06/05/2025 6:41 PM EDT [facility] Blood Venous blood specimen / Unknown Venipuncture / Unknown 06/05/2025 3:52 PM EDT 06/05/2025 3:52 PM EDT us Alvarez Zimmer MD LAB BLOOD ORDERABLES Final Res ult Performing Organization Address [facility] [place] [address] * Urine Subramanian Panel (05/31/2025 6:43 PM EDT) Only the most recent of3 resultswithin the time period is included. [facility] Extra Reflex urine culture not indicated 05/31/2025 9:01 PM EDT [facility] Urine Urine specimen obtained by clean catch procedure / Unknown Non-blood Collection / Unknown 05/31/2025 6:43 PM EDT 05/31/2025 7:14 PM EDT us Irina Campos MD LAB URINE ORDERABLES Final Re sult Performing Organization Address [facility]/[place] [address] * Urinalysis Microscopic Examination (05/31/2025 6:43 PM EDT) Only the most recent of3 resultswithin the time period is included. Urine Urine specimen obtained by clean catch procedure / Unknown Non-blood Collection / Unknown 05/31/2025 6:43 PM EDT 05/31/2025 6:46 PM EDT us Irina Campos MD LAB URINE ORDERABLES Final Re sult [facility] [address] [place] [address] * (ABNORMAL) Urinalysis with reflex microscopic (Culture NOT Included) (05/31/2025 6:43 PM EDT) Only the most recent of3 resultswithin the time period is included. Color, Urine Dark Yellow LAB URINALYSIS - AUTOMATED METHOD 05/31/2025 7:27 PM EDT [facility] Clarity, Urine Clear LAB URINALYSIS - AUTOMATED METHOD 05/31/2025 7:27 PM EDT [facility] Spec [place], Urine 1.029 1.005 - 1.030 LAB URINALYSIS - AUTOMATED METHOD 05/31/2025 7:27 PM EDT [facility] pH, Urine <=5.0(L) 5.0 - 8.0 LAB URINALYSIS - AUTOMATED METHOD 05/31/2025 7:27 PM EDT [facility] Protein, Urine Trace(A) Negative mg/dL LAB URINALYSIS - AUTOMATED METHOD 05/31/2025 7:27 PM EDT [facility] Glucose, Urine Negative Negative mg/dL LAB URINALYSIS - AUTOMATED METHOD 05/31/2025 7:27 PM EDT [facility] Ketones, Urine Trace(A) Negative mg/dL LAB URINALYSIS - AUTOMATED METHOD 05/31/2025 7:27 PM EDT [facility] Blood, Urine Small(A) Negative LAB URINALYSIS - AUTOMATED METHOD 05/31/2025 7:27 PM EDT [facility] Bilirubin, Urine Small(A) Negative LAB URINALYSIS - AUTOMATED METHOD 05/31/2025 7:27 PM EDT [facility] Urobilinogen, Urine 1.0 0.2 to 1.0 mg/dL LAB URINALYSIS - AUTOMATED METHOD 05/31/2025 7:27 PM EDT [facility] Leukocytes, Urine Trace(A) Negative LAB URINALYSIS - AUTOMATED METHOD 05/31/2025 7:27 PM EDT [facility] Nitrite, Urine Negative Negative LAB URINALYSIS - AUTOMATED METHOD 05/31/2025 7:27 PM EDT [facility] RBC, Urine 4 - 10(A) 0 to 3 /HPF LAB URINALYSIS - AUTOMATED METHOD 05/31/2025 7:27 PM EDT [facility] Comment:This result was prev iously suppressed from the chart. WBC, Urine 0 - 5 0 to 5 /HPF LAB URINALYSIS - AUTOMATED METHOD 05/31/2025 7:27 PM EDT [facility] Comment:This result was prev iously suppressed from the chart. Squamous Epithelial Cells 3 - 5 0 to 5 /HPF LAB URINALYSIS - AUTOMATED METHOD 05/31/2025 7:27 PM EDT [facility] Comment:This result was prev iously suppressed from the chart. Hyaline Casts 3 - 5 0 to 5 /LPF LAB URINALYSIS - AUTOMATED METHOD 05/31/2025 7:27 PM EDT [facility] Comment:This result was prev iously suppressed from the chart. Bacteria, Urine Negative Negative LAB URINALYSIS - AUTOMATED METHOD 05/31/2025 7:27 PM EDT [facility] Comment:This result was prev iously suppressed from the chart. Urine Urine specimen obtained by clean catch procedure / Unknown Non-blood Collection / Unknown 05/31/2025 6:43 PM EDT 05/31/2025 6:46 PM EDT us Irina Campos MD LAB URINE ORDERABLES Final Re sult [facility] [address] [place] [address] * (ABNORMAL) Magnesium (05/31/2025 4:01 PM EDT) Magnesium, Plasma 1.3(L) 1.9 - 2.4 mg/dL 05/31/2025 4:26 PM EDT [facility] Blood Venous blood specimen / Unknown Venipuncture / Unknown 05/31/2025 4:01 PM EDT 05/31/2025 4:06 PM EDT Torrie Turner MD LAB BLOOD ORDERABLES Final Resu lt Performing Organization Address [facility]/ZIP Co de Phone Number [facility] [address] [place] [address] * Lipase (05/31/2025 4:01 PM EDT) Lipase, Plasma 62 19 - 63 U/L 05/31/2025 4:26 PM EDT [facility] Blood Venous blood specimen / Unknown Venipuncture / Unknown 05/31/2025 4:01 PM EDT 05/31/2025 4:06 PM EDT Torrie Turner MD LAB BLOOD ORDERABLES Final Resu lt Performing Organization Address City/[facility] Co de Phone Number [facility] [address] [place] [address] * (ABNORMAL) Blood gas panel, venous (05/31/2025 4:01 PM EDT) Only the most recent of2 resultswithin the time period is included. pH, Venous 7.41 7.32 - 7.43 LAB HEMATOLOGY METHOD 05/31/2025 4:07 PM EDT [facility] pCO2, Venous 35(L) 37 - 52 mmHg LAB HEMATOLOGY METHOD 05/31/2025 4:07 PM EDT [facility] pO2, Venous 28 25 - 40 mmHg LAB HEMATOLOGY METHOD 05/31/2025 4:07 PM EDT [facility] SO2, Measured, Venous 45(L) 65 - 80 % LAB HEMATOLOGY METHOD 05/31/2025 4:07 PM EDT [facility] Base Excess, Venous -2.0 -2.0 - 3.0 mmol/L LAB HEMATOLOGY METHOD 05/31/2025 4:07 PM EDT [facility] Bicarbonate, Calculated, Venous 22 22 - 26 mmol/L LAB HEMATOLOGY METHOD 05/31/2025 4:07 PM EDT [facility] Hematocrit, Whole Blood 27.5(L) 34.0 - 45.0 % LAB HEMATOLOGY METHOD 05/31/2025 4:07 PM EDT [facility] Sodium, Whole Blood 142 136 - 145 mmol/L LAB HEMATOLOGY METHOD 05/31/2025 4:07 PM EDT [facility] Potassium, Whole Blood 4.2 3.6 - 4.9 mmol/L LAB HEMATOLOGY METHOD 05/31/2025 4:07 PM EDT [facility] Chloride, Whole Blood 110(H) 97 - 107 mmol/L LAB HEMATOLOGY METHOD 05/31/2025 4:07 PM EDT [facility] Glucose, Whole Blood 183(H) 74 - 99 mg/dL LAB HEMATOLOGY METHOD 05/31/2025 4:07 PM EDT [facility] Lactate, Venous, Whole Blood 1.8 0.5 - 2.2 mmol/L LAB HEMATOLOGY METHOD 05/31/2025 4:07 PM EDT [facility] Ionized Calcium, Whole Blood 4.4(L) 4.6 - 5.1 mg/dL LAB HEMATOLOGY METHOD 05/31/2025 4:07 PM EDT [facility] Blood Venous blood specimen / Unknown Venipuncture / Unknown 05/31/2025 4:01 PM EDT 05/31/2025 4:06 PM EDT Torrie Turner MD LAB BLOOD ORDERABLES Final Resu lt [facility] [address] [place] [address] * Ammonia (05/31/2025 4:01 PM EDT) Only the most recent of2 resultswithin the time period is included. Ammonia 39 11 - 51 umol/L 05/31/2025 4:55 PM EDT [facility] Blood Venous blood specimen / Unknown Venipuncture / Unknown 05/31/2025 4:01 PM EDT 05/31/2025 4:11 PM EDT Torrie Turner MD LAB BLOOD ORDERABLES Final Resu lt [facility] [address] [place] [address] * ECG Adult (05/31/2025 3:43 PM EDT) Only the most recent of2 resultswithin the time period is included. EKG DIAGNOSIS CLASS Abnormal MUSE ECG Ventricular Rate 67 BPM MUSE ECG Atrial Rate 67 BPM MUSE ECG VT Interval 116 ms MUSE ECG QRSD Interval 88 ms MUSE ECG QT Interval 466 ms MUSE ECG QTC Interval 492 ms MUSE ECG P [place] 40 degrees MUSE ECG R [place] -36 degrees MUSE ECG T Wave [place] -2 degrees MUSE ECG Diagnosis Normal sinus rhythm MUSE ECG Diagnosis Left axis deviation MUSE ECG Diagnosis Cannot rule out Anterior infarct , age undetermined MUSE ECG Diagnosis MUSE ECG Diagnosis MUSE ECG Diagnosis Confirmed by Cecelia Leal ([id number]) on 06/02/2025 7:31:57 PM MUSE ECG 05/31/2025 3:43 PM EDT 06/02/2025 7:31 PM EDT us Irina Campos MD ECG ORDERABLES Final Result Performing Organization Address [facility] Co de Phone Number MUSE ECG * US Chest (05/30/2025 11:15 AM EDT) Only the most recent of3 resultswithin the time period is included. Anatomical Region Laterality Modality Chest Ultrasound Impressions [...] Narrative 05/30/2025 7:47 PM EDT CLINICAL INDICATION: Monika Zimmer is a 64 y.o. female with [...] Ck Palacios MD - 05/30/2025 CLINICAL INDICATION: Monika Zimmer is a 64 y.o. female with [...] on 05/30/2025 7:47 PM us Marianna Gordon LOCAL OPERATOR IMG US PROCEDURES Final Resu lt * (ABNORMAL) Insulin, random (05/30/2025 9:59 AM EDT) Insulin 32.7(H) 3.0 - 16.0 uU/mL 05/30/2025 12:00 PM EDT [facility] Blood Venous blood specimen / Unknown Venipuncture / Unknown 05/30/2025 9:59 AM EDT 05/30/2025 10:16 AM EDT us Enmanuel Wetzel MD LAB BLOOD ORDERABLES Final Resu lt [facility] [address] [place] [address] * (ABNORMAL) Basic metabolic panel (05/30/2025 9:59 AM EDT) Glucose, Plasma 199(H) 74 - 99 mg/dL 05/30/2025 10:49 AM EDT [facility] BUN, Plasma 29(H) 8 - 23 mg/dL 05/30/2025 10:49 AM EDT [facility] Creatinine, Plasma 1.44(H) 0.60 - 1.10 mg/dL 05/30/2025 10:49 AM EDT [facility] BUN/Creatinine Ratio 20 05/30/2025 10:49 AM EDT [facility] Sodium, Plasma 140 136 - 145 mmol/L 05/30/2025 10:49 AM EDT [facility] Potassium, Plasma 5.0(H) 3.6 - 4.9 mmol/L 05/30/2025 10:49 AM EDT [facility] Chloride, Plasma 108(H) 97 - 107 mmol/L 05/30/2025 10:49 AM EDT [facility] CO2, Plasma 19(L) 22 - 29 mmol/L 05/30/2025 10:49 AM EDT [facility] Anion Gap 13 6 - 16 mmol/L 05/30/2025 10:49 AM EDT [facility] Total Calcium, Plasma 8.6(L) 8.9 - 10.2 mg/dL 05/30/2025 10:49 AM EDT [facility] eGFRcr 41.2 mL/min/1.7 3m*2 05/30/2025 10:49 AM EDT [facility] Comment:Reported eGFRcr in m L/min/1.73m2 is based the CKD-EPI 2020 equation that does not use a race coefficient. Blood Venous blood specimen / Unknown Venipuncture / Unknown 05/30/2025 9:59 AM EDT 05/30/2025 10:16 AM EDT Enmanuel Wetzel MD LAB BLOOD ORDERABLES Final Resu lt Performing Organization Address City/State/[facility] Co de Phone Number [facility] [address] [place] [address] * (ABNORMAL) Hemoglobin A1c (05/23/2025 9:27 AM EDT) Hemoglobin A1c 7.3(H) <5.7 % 05/23/2025 11:03 AM EDT [facility] Blood Venous blood specimen / Unknown Venipuncture / Unknown 05/23/2025 9:27 AM EDT 05/23/2025 9:45 AM EDT Narrative [facility] - 05/23/2025 11:03 AM EDT [facility] Interpretive Data: Diagnosis of Diabetes: Diabetic > or = 6.5% Pre-diabetic 5.7 to 6.4% Non-diabetic < or = 5.6% Glycemic Targets for Type I and Type II Diabetics: Non- Adults <7.0% Adults <6.0% Children and Adolescents <7.5% Source: [place] [employer] Association. Standards of medical care in diabetes,2017. Diabetes Care.2017:40 (suppl 1):S1-S135. us Enmanuel Wetzel MD LAB BLOOD ORDERABLES Final Resu lt Performing Organization Address [facility] Co de Phone Number [facility] [address] [place] [address] * POCT glucose meter (05/10/2025 3:29 PM EDT) Pathologist [facility] POCT Glucose 95 74 - 99 mg/dL [...] 05/10/2025 3:31 PM EDT [facility] Hog Buyer ID Abdoul Cuello 05/10/20 3:31 PM EDT [facility] Device ID [id number] 05/10/2025 3:31 PM EDT [facility] Specimen Type POC Capillary 05/10/2025 3:31 PM EDT [facility] Blood Capillary blood specimen / Unknown 05/10/2025 3:29 PM EDT 05/10/2025 3:31 PM EDT Abdoul Cuello LAB POINT OF CARE TE ST DOCKED DEVICE UNSOLICITED RESULTS Final Result Performing Organization Address City/State/[facility] Co de Phone Number [facility] [address] [place] [address] * CT Abdomen Pelvis w IV Contrast [...] are consistent with and integrated into the [place] Association for the Study of Liver Diseases [...] are consistent with and integrated into the [place] Associationfor the Study of Liver Diseases (AASLD) [...] on 05/07/2025 8:14 PM Gerson Arora MD IMG CT PROCEDURES Final Result * Alpha Fetoprotein, Serum (05/07/2025 8:58 AM EDT) Alpha Fetoprotein, Serum 4.0 <10.0 ng/mL 05/07/2025 10:04 AM EDT [facility] Blood Venous blood specimen / Unknown Venipuncture / Unknown 05/07/2025 8:58 AM EDT 05/07/2025 9:20 AM EDT Narrative [facility] - 05/07/2025 10:04 AM EDT Performed by [employer] electrochemiluminescent immunoassay which is traceable to the 1st AFP IRP WHO Reference standard 72/255. Results obtained with different test methods or kits cannot be used interchangeably. us Gerson Arora MD LAB BLOOD ORDERABLES Final Resul t [facility] [address] [place] [address] * (ABNORMAL) Troponin T, High Sensitivity, 2 Hour, Plasma (05/03/2025 4:23 PM EDT) Pathologist [facility] Troponin T, High Sensitivity, 2 Hour 31(H) <14 ng/L 05/03/2025 4:47 PM EDT [facility] Troponin Delta 1 <10 ng/L 05/03/2025 4:47 PM EDT [facility] Troponin Delta Interpretation Not Significant 05/03/2025 4:47 PM EDT [facility] Comment:Not Significant. No acute change in troponin observed between the baseline and 2 hour samples. Blood Venous blood specimen / Unknown Venipuncture / Unknown 05/03/2025 4:23 PM EDT 05/03/2025 4:25 PM EDT Luis Alfredo Jon MD LAB BLOOD ORDERABLES Fi nal Result [facility] [address] [place] [address] * (ABNORMAL) Troponin now and 120 min (05/03/2025 1:50 PM EDT) Pathologist [facility] Troponin T, High Sensitivity, 0 Hour 30(H) <14 ng/L 05/03/2025 2:20 PM EDT [facility] Blood Venous blood specimen / Unknown Venipuncture / Unknown 05/03/2025 1:50 PM EDT 05/03/2025 1:57 PM EDT Luis Alfredo Jon MD LAB BLOOD ORDERABLES Fi nal Result [facility] [address] [place] [address] * APTT (05/03/2025 1:50 PM EDT) [facility] aPTT 35 25 - 35 sec 05/03/2025 2:09 PM EDT [facility] Blood Venous blood specimen / Unknown Venipuncture / Unknown 05/03/2025 1:50 PM EDT 05/03/2025 1:56 PM EDT us Luis Alfredo Jon MD LAB BLOOD ORDERABLES Fi nal Result Performing Organization Address City/[facility]/ZIP Co de Phone Number [facility] [address] [place] [address] * (ABNORMAL) Ionized calcium, serum (04/04/2025 8:03 AM EDT) Ionized Calcium, Serum 4.5(L) 4.6 - 5.3 mg/dL LAB HEMATOLOGY METHOD 04/04/2025 8:51 AM EDT [facility] Blood Venous blood specimen / Unknown Venipuncture / Unknown 04/04/2025 8:03 AM EDT 04/04/2025 8:15 AM EDT Ar Dominique MD LAB BLOOD ORDERABLES Final Res ult Performing Organization Address [facility] Co de Phone Number [facility] [address] [place] [address] * Vitamin D 25 Hydroxy (04/04/2025 8:03 AM EDT) Vitamin D 25 Hydroxy 23.6 20.0 - 80.0 ng/mL 04/04/2025 11:13 AM EDT [facility] Blood Venous blood specimen / Unknown Venipuncture / Unknown 04/04/2025 8:03 AM EDT 04/04/2025 8:15 AM EDT Narrative [facility] - 04/04/2025 11:13 AM EDT Testing performed on [employer], standardized against NIST SRM 2972. When testing samples from patients whose predominant form of vitamin D is vitamin D2, such as patients receiving vitamin D2 supplementation, results that are subtherapeutic should be confirmed with another method, such as LC-MS/MS, before being used for patient management. Vitamin D, 25-Hydroxy reference range, age 18 years and up: Deficiency: <12 ng/mL Insufficiency: 12 to 19 ng/mL Sufficiency: 20 to 80 ng/mL Possible toxicity: >100 ng/mL Ar Dominique MD LAB BLOOD ORDERABLES Final Res ult Performing Organization Address City/[facility]/ZIP Co de Phone Number [facility] [address] [place] [address] * PTH Intact Total (04/04/2025 8:03 AM EDT) PTH Intact Total 53 9 - 77 pg/mL 04/04/2025 10:07 AM EDT [facility] Blood Venous blood specimen / Unknown Venipuncture / Unknown 04/04/2025 8:03 AM EDT 04/04/2025 8:12 AM EDT Narrative [facility] - 04/04/2025 10:07 AM EDT Assay performed by immunoassay at the [facility]. Performed on [employer] chemiluminescent immunoassay, tractable to the World Health Organization's first international standard for PTH from the [facility], Code 79/500. Results obtained from different test methods or kits cannot be used interchangeably. Ar Dominique MD LAB BLOOD ORDERABLES Final Res ult Performing Organization Address [facility]/ZIP Co de Phone Number [facility] [address] [place] [address] * Glucose - Pleural Right (03/28/2025 9:30 AM EDT) Glucose, Fluid 245 mg/dL 03/28/2025 12:28 PM EDT [facility] Pleural Fluid Structure of right pleural cavity / Unknown Non-blood Collection / Unknown 03/28/2025 9:30 AM EDT 03/28/2025 10:38 AM EDT Narrative [facility] - 03/28/2025 12:28 PM EDT Pleural No established reference interval. Results should be interpreted in comparison to the concentration in blood and in conjunction with the clinical context. Normal pleural fluid glucose is similar to serum concentrations. Pleural fluid transudates and most exudates usually have glucose concentrations of >60 mg/dL. Pleural fluid exudates with glucose concentrations <60 mg/dL have been associated with conditions such as para-pneumonic effusion, tuberculosis, malignancy, empyema, and/or rheumatoid disease. Maria Dolores Ontiveros APRN, DNP LAB BODY FLUIDS AND STOO LS ORDERABLES Final Result Performing Organization Address City/[facility]/ZIP Co de Phone Number [facility] [address] [place] [address] * Albumin - Pleural Right (03/28/2025 9:30 AM EDT) Albumin, Pleural Fluid 0.8 g/dL 03/28/2025 12:28 PM EDT [facility] Pleural Fluid Structure of right pleural cavity / Unknown Non-blood Collection / Unknown 03/28/2025 9:30 AM EDT 03/28/2025 10:38 AM EDT Narrative [facility] - 03/28/2025 12:28 PM EDT REPORTING RESULTS Reference Values: No established reference interval. Results should be interpreted in comparison to the concentration in blood and in conjunction with the clinical context. This test was developed and its performance characteristics determined by [facility]. The U.S. Food and Drug Administration has not approved or cleared this test; however, FDA clearance or approval is not currently required for clinical use. The results are not intended to be used as the sole means for clinical diagnosis or patient management decisions. Maria Dolores Ontiveros APRN, DNP LAB BODY FLUIDS AND STOO LS ORDERABLES Final Result Performing Organization Address [facility] Co de Phone Number [facility] [address] [place] [address] * (ABNORMAL) pH, pleural fluid (03/28/2025 9:30 AM EDT) pH, Pleural Fluid 7.52(L) 7.60 - 7.66 LAB HEMATOLOGY METHOD 03/28/2025 10:54 AM EDT [facility] Pleural Fluid Pleural fluid specimen / Unknown Non-blood Collection / Unknown 03/28/2025 9:30 AM EDT 03/28/2025 10:40 AM EDT Narrative [facility] - 03/28/2025 10:54 AM EDT Delay in transport affects results. Normal pleural fluid has a pH of 7.60-7.66 Transudate pleural fluid effusion has a pH of 7.45-7.55 Exudate pleural effusion has a pH of 7.30-7.40 In patients with a parapneumonic pleural effusion, pH <7.2 indicates advance disease and a need for tube drainage pH >7.2 indicates antibiotic therapy alone is probably sufficient In patients with a malignant pleural effusion, pH <7.3 indicates reduced survival, and is contraindiction for pleurodesis This test was developed, and its performance characteristics determined by the [facility]. Pleural pH is measured by potentiometry using a blood gas analyzer. it has not been approved by the US Food and Drug Administration. this test is used for clinical purposes and should not be regarded as investigational or for research. this laboratory is certified under the Clinical Laboratory Improvement Amendment of 1988 (CLIA-88) as qualified to perform high complexity clinical laboratory testing. Maria Dolores Ontiveros APRN, DNP LAB BODY FLUIDS AND STOO LS ORDERABLES Final Result [facility] [address] [place] [address] * Dexa Bone Density (11/07/2024 9:09 AM EST) Anatomical Region Laterality Modality L-spine Nuclear Medicine Impressions 11/07/2024 9:34 AM EST Osteoporosis. RECOMMENDATIONS: FDA-approved medical therapy beyond calcium and vitamin D is recommended after appropriate evaluation to exclude secondary causes of osteoporosis. Timing of follow-up DXA should be determined based on clinical assessment, and may be appropriate in two years to evaluate change in BMD. A follow-up DXA should be performed on the same DXA scanner to allow for direct comparison and calculation of change in BMD. CRITICAL RESULT: No. COMMUNICATION: Per this written report. By electronically signing this report, I, the attending physician, attest that I have personally reviewed the images/data for the above examination(s) and agree with the final edited report. Drafted by He Grier DO on 11/07/2024 9:14 AM Final report signed by Brayden Hoffman MD on 11/07/2024 9:34 AM Narrative 11/07/2024 9:34 AM EST CLINICAL INDICATION: Female who is 64 years of age. Liver Transplant Evaluation. TECHNIQUE: Bone mineral density (BMD) testing of two or more of the following sites: lumbar spine, left hip, right hip, left forearm, right forearm was performed using a Construct A Dual-energy X-ray Absorptiometry (DXA) scanner (software version 13.6.1.2). Sites may be excluded because of surgical hardware, prosthesis, or other source of artifact. COMPARISON/CORRELATION: No comparison. No recent correlative imaging. FINDINGS: The technical quality is acceptable. For post-menopausal females, the T-scores are used in the assessment. Based on The World Health Organization classification system: Normal bone mass is defined as BMD above normal or equal to/less than one standard deviation below normal; Low bone mass/osteopenia is defined as BMD more than one standard deviation below normal, but less than 2.5 standard deviations below normal; Osteoporosis is defined as BMD equal to/more than 2.5 standard deviations below normal. Lumbar Spine: The BMD of L1-L4 is 0.940 g/cm2, corresponding to a T-score of -1tThere are sclerotic changes related to osteoarthritis and/or scoliosis that could falsely elevate the measured BMD. Left Hip: The BMD of the femoral neck is 0.471 g/cm2, corresponding to a T-score of -3.4 and the BMD of the total hip is 0.680 g/cm2, corresponding to a T-score of -2.1. Right Hip: The BMD of the femoral neck is 0.552 g/cm2, corresponding to a T- score of -2.7 and the BMD of the total hip is 0.693 g/cm2, corresponding to a T-score of -2.0. Procedure Note Brayden Hoffman MD - 11/07/2024 CLINICAL INDICATION: Female who is 64 years of age. Liver Transplant Evaluation. TECHNIQUE: Bone mineral density (BMD) testing of two or more of the following sites:lumbar spine, left hip, right hip, left forearm, right forearm wasperformed using a [employer] A Dual-energy X-ray Absorptiometry (DXA)scanner (software version 13.6.1.2). Sites may be excluded because ofsurgical hardware, prosthesis, or other source of artifact. COMPARISON/CORRELATION: No comparison. No recent correlative imaging. FINDINGS: The technical quality is acceptable. For post-menopausal females, the T-scores are used in the assessment.Based on The World Health Organization classification system: Normal bone mass is defined as BMD above normal or equal to/less than onestandard deviation below normal; Low bone mass/osteopenia is defined as BMD more than one standarddeviation below normal, but less than 2.5 standard deviations belownormal; Osteoporosis is defined as BMD equal to/more than 2.5 standard deviationsbelow normal. Lumbar Spine: The BMD of L1-L4 is 0.940 g/cm2, corresponding to a T-scoreof -1tThere are sclerotic changes related to osteoarthritis and/orscoliosis that could falsely elevate the measured BMD. Left Hip: The BMD of the femoral neck is 0.471 g/cm2, corresponding to aT-score of -3.4 and the BMD of the total hip is 0.680 g/cm2, correspondingto a T-score of - 2.1. Right Hip: The BMD of the femoral neck is 0.552 g/cm2, corresponding to aT-score of -2.7 and the BMD of the total hip is 0.693 g/cm2, correspondingto a T-score of - 2.0. IMPRESSION: Osteoporosis. RECOMMENDATIONS: FDA-approved medical therapy beyond calcium and vitamin D is recommendedafter appropriate evaluation to exclude secondary causes of osteoporosis. Timing of follow-up DXA should be determined based on clinical assessment,and may be appropriate in two years to evaluate change in BMD. A follow-upDXA should be performed on the same DXA scanner to allow for directcomparison and calculation of change in BMD. CRITICAL RESULT: No. COMMUNICATION: Per this written report. By electronically signing this report, I, the attending physician, lana I have personally reviewed the images/data for the aboveexamination(s) and agree with the final edited report. Drafted by He Grier DO on 11/07/2024 9:14 AM Final report signed by Brayden Hoffman MD on 11/07/2024 9:34 AM Gerson Arora MD IM DXA PROCEDURES Final Result * HIV 1 & 2 Antibody/Antigen Screen (10/22/2024 11:44 AM EST) HIV 1 & 2 Antibody/Antigen Screen Non Reactive Non Reactive 10/22/2024 1:15 PM EST [facility] Comment:Screening for HIV 1 & 2 antibodies, and P24 antigen is NONREACTIVE. No confirmatory testing is required. Blood Venous blood specimen / Unknown Venipuncture / Unknown 10/22/2024 11:44 AM EST 10/22/2024 12:30 PM EST Yeni Lberon APRN, DNP LAB BLOOD ORDERABLES Final Result Performing Organization Address [facility]/ZIP Co de Phone Number [facility] [address] [place] [address] * Hepatitis C Antibody (10/22/2024 11:44 AM EST) Hepatitis C Antibody Negative Negative 10/22/2024 1:00 PM EST [facility] Blood Venous blood specimen / Unknown Venipuncture / Unknown 10/22/2024 11:44 AM EST 10/22/2024 12:17 PM EST Yeni Lebron APRN, ANGELLA LAB BLOOD ORDERABLES Final Result Performing Organization Address City/[facility] Co de Phone Number [facility] [address] [place] [address] * Colonoscopy External Result (01/14/2023) Anatomical Region Laterality Modality Endoscopy Narrative 01/14/2023 Ordered by an unspecified provider. us External Provider GI PROCEDURE ORDERABLES Final Result * Cytology (04/12/2003 12:00 AM EDT) 04/12/2003 04/16/2003 Narrative [facility] - 04/26/2003 7:51 AM EDT [facility] MR #: [id number] [facility] [address] [place] [address] 1960 (Age: 42) FW Collect Date: 04/12/2003 00:00 Receipt Date: 04/16/2003 00:00 Page 1 DEPARTMENT OF PATHOLOGY AND LABORATORY MEDICINE CYTOPATHOLOGY REPORT Email: [email or web address] ATTENDING MD/Practitioner: Rosaline Cooper MD Service: PAT Location: OUTS Reported: 04/26/2003 07:51 Collected: 04/12/2003 00:00 INTERPRETATION THIN PREP (CERVICAL/VAGINAL): NEGATIVE FOR INTRAEPITHELIAL LESION OR MALIGNANCY. SATISFACTORY FOR EVALUATION; ENDOCERVICAL/ TRANSFORMATION ZONE COMPONENT PRESENT. Electronically Signed Out By ELLA Rivera (ASCP) ELLA Rivera (ASCP) Cervical cytology is a screening test primarily for squamous cancers and precursors and has associated false negative and positive results. New technologies such as liquid based sampling may decrease but will not eliminate all false negative results. Regular screening and follow-up of unexplained clinical signs and symptoms are recommended to minimize false negative results. Please see the ASCCP website (www.asccp.org) for followup recommendations. If HPV testing was requested, correlation with the results is suggested (please call Microbiology at [phone] for results). CLINICAL INFORMATION: Menstrual History: Cyclic Date of Last Menstrual Period: 11/23 Contraceptive History: control pills Other Clinical Conditions: Per computer, patient has a history of previous abnormal pap SPECIMEN DESCRIPTION: A: THIN PREP (CERVICAL/VAGINAL) THIN PREP PROCESS CELLULAR ENHANCEMENT ICD: 795.00 ABNORMAL GLANDULAR PAPANICOLAOU SMEAR OF CERVIX F: A; THIN SCRN [id number], THIN SCRN [id number] <CR>, [place] [id number] SNOMED CODES: A; [id number] In cases where a pathologist has signed out the report, the service has been rendered in part by a resident. The signing pathologist has performed and is responsible for the reported pathologic evaluation. us Historical Provider LAB PATHOLOGY ORDERABLES Final Result [facility] from Last 3 Months or Most Recently Relevant to Health Maintenance [place] Advance Directives * Full Code (Latest Code Status on File) Date Activated Date Inactivated Comments 01/08/2025 1:35 PM 01/14/2025 5:43 PM Question Answer Comments Patient has decision-making capacity? No Healthcare Surrogate: Parent(s) of the patient * Full Code Date Activated Date Inactivated Comments 10/22/2024 9:16 AM 11/03/2024 2:22 PM Question Answer Comments Patient has decision-making capacity? Yes Care Teams Public Speaking Coach Relationship Specialty Start Date End Date Alvarez Zimmer MD [address] [place] [address] PCP - General Family Medicine 12/07/24 Lea Fernando [address] [facility] [address] [place] [id number] Malted Milk Supervisor Endocrinology 08/29/24 Rachel Ray APRN [address] [place] [phone] Nurse Practitioner Gastroenterology 09/24/24 Tamera Isabel LPN VALUE-BASED TRANSFORMATION PROGRAM Licensed Practical Nurse 05/29/25
--- OUTSIDE RECORDS SUMMARY | 2025-06-23 17:44 | XMS_ITS | Encounter Summary ---
Author Organization Healthcare Address [address] [place] [address] Care Team Providers Care Globe Tester Name Role Phone Lea Fernando Unavailable [phone] Rachel Ray COMMUNICATIONS ELECTRICIAN SUPERVISOR Unavailable [phone] Alvarez Zimmer MD Primary Care Provider [phone] Tamera Isabel LPN Unavailable Unavailabl e Encounter Details Date Type Department Care Team (Latest Contact Info) Description 06/11/2025 Travel Social History Tobacco Use Types Packs/Day [...] How often do you attend [facility] or sikhism services? Patient unable to answer 01/10/2025 Do you belong to any clubs o r organizations such as episcopal groups, unions, fraternal or athletic groups, or [...] time in the past [address] [facility], were you homeless or living in a half-way (including now)? No 03/06/2025 Humiliation, Afraid, Rape, [...] often do you attend chur ch or sikhism services? Never 05/29/2025 Do you belong to any clubs o r organizations such as episcopal groups, unions, fraternal or athletic groups, or [...] more drinks on one occasion? Never 06/05/2025 [facility] - [facility]ational Stress [...] time in the past [address] [facility], were you homeless or living in a half-way (including now)? No 05/29/2025 CAGE ASSESSMENT Answer [...] drink first t kennedy in the morning (EYE-DIETITIAN TEACHING) to steady your nerves or to get [...] hopeless Not at all 06/11/2025 10:59 AM EDSuhail Doherty Patient Health Questionnaire -2 Score 0 06/11/2025 [...] way Not at all 06/11/2025 10:59 AM Suhail Josue Patient Health Questionnaire -9 Score 6 06/11/2025 10:59 AM EDSuhail Doherty * If you checked off any problems on this questionnaire so far, Question Answer Date of Assessment Author How difficult have these problems made it for you to do your work, take care of things at home, or get along with other people? Somewhat difficult 06/11/2025 10:59 AM EDSuhail Dhoerty * How difficult have these problems made it for you to do your work, take care of things at home, or get along with other people? Answer Date of Assessment Author Somewhat difficult 06/11/2025 10:59 AM EDSuhail Jackson documented as of this encounter Plan of Treatment Upcoming Encounters Date Type Department Care Team ([facility] st Contact Info) Description 06/27/2025 9:30 AM EDT Appointment [facility] Inter[facility] Radiology [address] [place] [address] 06/27/2025 10:30 AM EDT Appointment [facility] Radiology [address] [place] [address] 07/04/2025 10:30 AM EDT Appointment [facility]iology [address] [place] [address] 07/04/2025 11:30 AM EDT Appointment [facility] Inter[facility] Radiology [address] [place] [address] 07/09/2025 2:40 PM EDT Office Visit [facility] Bone & Mineral Metabolism [address], [address] [place] [address] Ar Dominique MD [address] [place] [address] 07/11/2025 10:30 AM EDT Appointment [facility] Radiology [address] [place] [address] 07/11/2025 11:30 AM EDT Appointment [facility] [address] [place] [address] 07/18/2025 10:30 AM EDT Appointment [facility] Radiology [address] [place] [address] 07/18/2025 11:30 AM EDT Appointment [facility] Radiology [address] [place] [address] 07/25/2025 10:30 AM EDT Appointment [facility] Radiology [address] [place] [address] 07/25/2025 11:30 AM EDT Appointment [facility]iology [address] [place] [address] 07/31/2025 9:00 AM EDT Office Visit [address] [place] [address] Alvarez Zimmer MD [address] [place] [address] 08/20/2025 9:30 AM EDT Clinical Support [facility] [place] [address] [place] [address] 08/20/2025 10:30 AM EDT Social Work [facility] [place] [address] [place] [address] [place] [address] 08/20/2025 11:00 AM EDT Office Visit [facility] [place] [address] [place] [address] Jude Duque MD [address] [place] [address] 10/30/2025 1:20 PM EST Office Visit [facility] Endocrinology [address] [place] [address] Sharif Moreno, DPNicole [address] [place] [address] documented as of this encounter [...] documented as of this encounter Care Teams Globe Tester Relationship Specialty Start Date End Date Alvarez Zimmer MD [address] [place] [address] PCP - General Family Medicine 12/07/24 Lea Fernando [address] [place] [address] [employer] Endocrinology 08/29/24 Rachel Ray APRN [address] [place] [address] Nurse Practitioner Gastroenterology 09/24/24 Tamera Isabel LPN VALUE-BASED TRANSFORMATION PROGRAM Licensed Practical Nurse 05/29/25 documented as of this encounter
--- OUTSIDE RECORDS SUMMARY | 2025-06-23 17:44 | XMS_ITS | Referral Summary ---
Author Organization [employer] ([place], [place], [place], [place]) Address [address] [place] [address] Care Team Providers Care Geotechnical Engineer Name Role Phone Wilfredolayla Taina Burt APRN Primary Care Provider [phone] Allergies No known active allergies Medications * [...] Date Beau rded Speak language other than Ivorian at home Not on file 12/01/2023 Want [...] 07/01/2023 7:28 AM EDT Plan of Treatment Not on file Medical Devices Implanted Type Area Public Health Inspector Device Identifier Shelf Expiration Date Model / Serial / Lot Kt Lead Tined 1201 - [id number] Implanted:Qty: 1 on 07/01/2023 by Rory Villarreal MD at [facility] IMPLANTS N/A: Sacrum AXONICS 1201 / [id number] / Neurostimulator Rechrgble R20 5101 - [id number] Implanted:Qty: 1 on 07/01/2023 by Rory Villarreal MD at [facility] IMPLANTS N/A: Sacrum [employer]ONICS 5101 / [id number] / Procedures Procedure Name Priority Date/Time [...] 4:24 AM EDT 07/02/2021 8:24 AM EDT [facility] Historical Provider PATHOLOGY/CYTOLOGY ORDE LOAN Final Result Performing Organization Address City/State/[facility] Co de Phone Number [facility] [address] [phone] from Last 3 Months or Most Recently Relevant to Health Maintenance Insurance [facility] MEDICARE PPO Care Teams Geotechnical Engineer Relationship Specialty Start Date End Date Taina Lyles, MARINE TECHNICIAN [address] [place] [id number] PCP - General Nurse Practitioner 06/15/23
--- OUTSIDE RECORDS SUMMARY | 2025-06-23 17:45 | XMS_ITS | Encounter Summary ---
Author Organization Healthcare Address [address] [place] [address] Care Team Providers Care Coil Maker Name Role Phone Lea Fernando Unavailable [phone] Rachel Ray CANE FURNITURE MAKER Unavailable [phone] Alvarez Zimmer MD Primary Care Provider [phone] Tamera Isabel REGISTERED MIDWIFE Unavailable Unavailabl e Encounter Details Date Type Department Care Team (Late st Contact Info) Description 06/14/2025 Telephone [facility] Medicine [address] [place] [address] Alvarez Zimmer MD [address] [place] [address] Social History Tobacco Use Types [...] week 01/10/2025 How often do you attend [facility] or scientologist services? Patient unable to answer [...] the past 12 m [facility], were you homeless or living in a [...] more drinks on one occasion? Never 06/05/2025 [facility] - Occupational Stress Questionnaire [...] the past 12 m [facility], were you homeless or living in a [...] drink first t kennedy in the morning (EYE-GOLD BUYER) to steady your nerves or to get [...] encounter Miscellaneous Notes * Telephone Encounter - Gissel Marino - 06/14/2025 1:11 PM EDT Called and informed pt that referral is in the computer and we will try to get all sorted out and set up in [place]. Pt voiced understanding. * Telephone Encounter - Gissel Marino - 06/14/2025 11:55 AM EDT Referral placed in computer. * Telephone Encounter - Skye Ball - 06/14/2025 10:51 AM EDT Clinical Concern/Question Reason for Call: Patient states the transplant office was supposed to get with Dr. Zimmer regarding palliative care, patient calling to check on this. Per patient, the transplant team says she is not taking care of herself and that she needs assistance taking care of herself. Patient is now staying with her sister in [place] for this assistance. Patient will be staying with her sister until something is set up with palliative care. Patient wants to be back on the transplant list. Please call patient to advise/discuss. Best contact number: [phone] Optimal time of day to reach caller: ANYTIME Additional comments/information from caller: None Note: Please do not reply to this message. Follow-up communication and further actions as a result of this message need to be communicated with the patient directly, if the patient is not active onMyChart. If the patient is active on MyChart, they will receive notification of the communication/outcome via [employer]. documented in this encounter Plan of Treatment Upcoming Encounters Date Type Department Care Team (Late st Contact Info) Description 06/27/2025 9:30 AM EDT Appointment [facility] Interventional Radiology [address] [place] [address] 06/27/2025 10:30 AM EDT Appointment [facility] Inter[facility] Radiology [address] [place] [address] 07/04/2025 10:30 AM EDT Appointment [facility] Radiology [address] [place] [address] 07/04/2025 11:30 AM EDT Appointment [facility] Inter[facility] Radiology [address] [place] [address] 07/09/2025 2:40 PM EDT Office Visit [facility] Bone & Mineral Metabolism [address], [address] [place] [address] Ar Dominique MD [address] [place] [address] 07/11/2025 10:30 AM EDT Appointment [facility] Inter[facility] Radiology [address] [place] [address] 07/11/2025 11:30 AM EDT Appointment [facility] Inter[facility] Radiology [address] [place] [address] 07/18/2025 10:30 AM EDT Appointment [facility]iology [address] [place] [address] 07/18/2025 11:30 AM EDT Appointment [facility]iology [address] [place] [address] 07/25/2025 10:30 AM EDT Appointment [facility] Radiology [address] [place] [address] 07/25/2025 11:30 AM EDT Appointment [facility] Inter[facility]iology [address] [place] [address] 07/31/2025 9:00 AM EDT Office Visit [address] [address] Alvarez Zimmer MD [address] [place] [address] 08/20/2025 9:30 AM EDT Clinical Support [facility] [place] [address] [place] [address] 08/20/2025 10:30 AM EDT Social Work [facility] [place] [address] [place] [address] [place] [address] 08/20/2025 11:00 AM EDT Office Visit [facility] [place] [address] [place] [address] Jude Duque MD [address] [place] [address] 10/30/2025 1:20 PM EST Office Visit [facility] Endocrinology [address] [place] [address] Sharif Moreno, DPNicole [address] [place] [address] documented as of this encounter [...] documented as of this encounter Care Teams Coil Maker Relationship Specialty Start Date End Date Alvarez Zimmer MD [address] [place] [address] PCP - General Family Medicine 12/07/24 Lea Fernando [address] [facility] [address] [place] [address] Knife Blade Polisher Endocrinology 08/29/24 Rachel Ray APRN [address] [place] [address] Nurse Practitioner Gastroenterology 09/24/24 Tamera Isabel LPN VALUE-BASED TRANSFORMATION PROGRAM Licensed Practical Nurse 05/29/25 documented as of this encounter
--- OUTSIDE RECORDS SUMMARY | 2025-06-23 17:45 | XMS_ITS | Encounter Summary ---
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 Name Role Phone Taina Lyles [employer] Primary Care Provider [phone] Encounter Details Date Type Department Care Team (Late st Contact Info) Description 07/02/2021 Transcribed Document [facility] [address] [place] [address] ProviderWilliam MD [address] [place], [place] [id number] Social History Tobacco Use Types Packs/Day Years Used Date Smoking Tobacco: Never Assessed Comments Unknown Sex and Gender Information Value Date Recorded Sex Assigned at Not on file Legal Sex Female 12:21 PM CDT Gender Identity Not on file Sexual Orientation Not on file documented as of this encounter Miscellaneous Notes * Cerner Conversion Note - William Reyes MD - 07/02/2021 10:50 AM CDT [place] [id number] MONIKA ZIMMERYE :1960 Visit Time:07/01/2021 Your Visit Summary Your Care Team Primary Provider: SOLEDAD AGUILAR Secondary Provider: Your Diagnosis Acute ischemic heart disease, unspecified, Acute ischemic heart disease, unspecified Chest pain Medical screening exam Medical Information You may obtain a copy of your Emergency Department visit from Medical Records by calling the hospital phone number listed above and asking to be directed to the Medical Records Department. If you had special tests, such as EKG???s or X-rays, the interpretation of your tests given to you by the Emergency Department Physician is a preliminary report. Some fractures and illnesses fail to show up on preliminary tests. These will be reviewed again and we will call you if there are any new suggestions. If your symptoms continue notify your physician. After you leave, you should follow the instructions provided. What to do next Instructions From Your Care Team Discharge Diet: Discharge Diet: Heart healthy diet Follow-Up Appointments Follow Up with RICARDO MOLINA When Within 1 day Comments Can present today for scheduled vein ablation after discharge from ER. Where: [address] [place] [id number] [phone] (1) Follow Up with CORINA ABAD When Within 2 to 3 days Allergies No Known Allergies Immunizations This Visit No Immunizations Found Medications What How Much When Instructions Next Dose albuterol (Ventolin HFA 90 mcg/ inh inhalation aerosol) 2 puffs Inhalation Every 4 Hours as needed for Shortness of Breath aspirin (aspirin 81 mg oral tablet) 1 Tablet(s) Oral Every Day buPROPion (buPROPion 100 mg/ 12 hours (SR) oral tablet, extended release) 1 Tablet(s) Oral Every Day cetirizine (cetirizine 10 mg oral tablet) 1 Tablet(s) Oral Every Day empagliflozin (Jardiance 10 mg oral tablet) ezetimibe (Zetia 10 mg oral tablet) Oral Every Day insulin regular (HumuLIN R (Concentrated) 500 units/ mL human recombinant subcutaneous solution) See Instructions 12 Units SubCutaneous am & 12 units pm isosorbide mononitrate (isosorbide mononitrate 60 mg oral tablet, extended release) 1 Tablet(s) Oral Every Morning Duration: 30 Day(s) magnesium oxide (magnesium oxide 500 mg oral tablet) 1 Tablet(s) Oral Three Times A Day metFORMIN (metFORMIN 1000 mg oral tablet) Oral Two Times A Day multivitamin Oral Every Day multivitamin with minerals (Calcium 600+D Plus Minerals) 2 tabs Oral Every Day omega-3 polyunsaturated fatty acids (Fish Oil 1000 mg oral capsule) 2 tabs Oral Every Day rosuvastatin (rosuvastatin 20 mg oral tablet) TAKE 1 TABLET BY MOUTH AT BEDTIME traZODone (traZODone 50 mg oral tablet) 2 Tablet(s) Oral At Bedtime triamcinolone nasal (triamcinolone 55 mcg/ inh nasal spray) 2 sprays Nostrils Both Every Day ubrogepant (Ubrelvy 50 mg oral tablet) TAKE 1 TABLET BY MOUTH TWO TIMES A DAY NEEDED FOR MIGRAINE FOR UP TO 2 DOSES. WAIT 2 HOURS BEFORE 2ND DOSE venlafaxine (Effexor XR 150 mg oral capsule, extended release) 1 Capsule(s) Oral Every Day venlafaxine (venlafaxine 75 mg oral tablet) Oral At Bedtime The home medications listed are only as accurate as the information you provided. Please continue taking all of your medications prescribed by your Primary Care Provider unless specifically told to change or discontinue the medication. Please direct any questions regarding your home medications to your Primary Care Provider. Take your medications faithfully. Do NOT skip medication. Do NOT stop taking medications without the direction of a physician. Carry a list of your medications with you at all times, and take this medication list with you to your first follow up visit. Report any side effects. Avoid herbal remedies unless discussed with your physician. As part of your treatment plan, your physician may have prescribed a limited course of a controlled substance. This medication may be given to help people with moderate or severe pain or for other medical conditions, but there are risks involved with treatment. Common side effects may include nausea, constipation, drowsiness, sweating, itching, dry mouth, and rash. More serious side effects may include cognitive and motor impairment, like problems with thinking, concentrating, alertness, and movement (e.g. slowed reflexes), and driving and operating heavy machinery can be dangerous. It is important for you to talk to your physician if you have these side effects or questions. These controlled substances can produce physical dependence and be habit-forming if taken for an extended period of time, which means that the body has gotten used to them and may experience withdrawal symptoms if they are abruptly stopped. Withdrawal symptoms can include runny nose, sweating, goose bumps, diarrhea, abdominal cramping, rapid heartbeat, difficulty sleeping, and nervousness. Please dispose of unused and medications per pharmacy guidance. Test Results Laboratory or Other Results This Visit (last charted value for your 07/01/2021 visit) Hematology 07/01/2021 12:36 PM WBC: 8.0 K/uL -- Normal range between ( 3.9 and 10.0 ) RBC: 4.28 Million/uL -- Normal range between ( 3.93 and 5.22 ) Hct: 40.6 % -- Normal range between ( 34.1 and 44.9 ) Hgb: 13.2 Gram/dL -- Normal range between ( 11.2 and 15.7 ) Platelet Count: 123 K/uL -- Normal range between ( 163 and 369 ) MCH: 30.8 pg -- Normal range between ( 25.6 and 32.2 ) MCHC: 32.5 Gram/dL -- Normal range between ( 32.3 and 36.5 ) MCV: 94.9 fL -- Normal range between ( 79.0 and 94.8 ) Slide Review: No Eos %: 6.1 % -- Normal range between ( 1.0 and 7.0 ) [place] #: 0.66 K/uL -- Normal range between ( 0.24 and 0.82 ) Eos #: 0.49 K/uL -- Normal range between ( 0.04 and 0.54 ) [place] %: 8.2 % -- Normal range between ( 4.7 and 12.5 ) Baso %: 0.2 % -- Normal range between ( 0.0 and 1.0 ) Baso #: 0.02 K/uL -- Normal range between ( 0.01 and 0.08 ) RDW: 16.5 % -- Normal range between ( 11.6 and 14.4 ) Neut %: 72.5 % -- Normal range between ( 34.0 and 71.0 ) Neut #: 5.82 K/uL -- Normal range between ( 1.56 and 6.13 ) Lymph %: 12.8 % -- Normal range between ( 19.3 and 53.0 ) Lymph #: 1.03 K/uL -- Normal range between ( 1.18 and 3.74 ) MPV: 10.0 fL -- Normal range between ( 9.4 and 12.4 ) IG#: 0 x10(3)/uL IG%: 0 % -- Normal range between ( 0 and 1 ) Microbiology 07/01/2021 2:36 PM SARS-CoV-2 (COVID19 PCR): Negative General Chemistry 07/02/2021 4:24 AM Creatinine Level: 0.97 mg/dL -- Normal range between ( 0.55 and 1.02 ) Sodium Level: 135 mmol/L -- Normal range between ( 136 and 146 ) Potassium Level: 3.8 mmol/L -- Normal range between ( 3.5 and 5.1 ) Chloride Level: 103 mmol/L -- Normal range between ( 102 and 112 ) Carbon Dioxide Level: 22 mmol/L -- Normal range between ( 21 and 32 ) Anion Gap: 14 -- Normal range between ( 9 and 20 ) Bun/Creatinine: 14.4 -- Normal range between ( 8.0 and 20.0 ) Calcium Level: 8.2 mg/dL -- Normal range between ( 8.5 and 10.1 ) eGFR : >60 mL/min/1.73m2 eGFR NonAfrican: 59 mL/min/1.73m2 Glucose Level: 391 mg/dL -- Normal range between ( 74 and 106 ) Blood Urea Nitrogen: 14 mg/dL -- Normal range between ( 7 and 22 ) 07/01/2021 2:36 PM Magnesium Level: 1.7 mg/dL -- Normal range between ( 1.5 and 2.4 ) 07/01/2021 12:36 PM Bilirubin Total: 1.2 mg/dL -- Normal range between ( 0.2 and 1.3 ) A/G Ratio: 0.5 -- Normal range between ( 1.1 and 2.5 ) ALT: 47 Units/Liter -- Normal range between ( 12 and 78 ) AST: 79 Units/Liter -- Normal range between ( 5 and 37 ) Globulin: 5.3 Gram/dL -- Normal range between ( 1.5 and 4.5 ) Alk Phos: 150 Units/Liter -- Normal range between ( 27 and 136 ) Protein Total: 8.2 Gram/dL -- Normal range between ( 6.4 and 8.2 ) Albumin Level: 2.9 Gram/dL -- Normal range between ( 3.4 and 5.0 ) Cardiac Specific Markers 07/02/2021 4:24 AM ProBNP: 56 pg/mL -- Normal range between ( 0 and 125 ) 07/01/2021 4:44 PM Troponin I Ultra: 0.114 ng/mL -- Normal range between ( 0.015 and 0.045 ) Lipid Studies 07/02/2021 4:24 AM Cholesterol Tot: 76 mg/dL -- Normal range between ( 0 and 199 ) Cholesterol HDL: 28.0 mg/dL Cholesterol LDL Calculation: 22.4 mg/dL -- Normal range between ( 0.0 and 99.0 ) Cholesterol VLDL Calculation: 25.6 mg/dL -- Normal range between ( 5.0 and 40.0 ) Cholesterol/HDL Ratio: 2.7 -- Normal range between ( 0.0 and 3.2 ) Triglyceride: 128 mg/dL -- Normal range between ( 0 and 249 ) LDL/HDL Ratio: 0.8 -- Normal range between ( 0.0 and 3.2 ) Endocrinology 07/01/2021 2:36 PM TSH: 0.390 mcInt Units/mL -- Normal range between ( 0.358 and 3.740 ) FT4: 1.53 ng/dL -- Normal range between ( 0.76 and 1.46 ) Computed Tomography 07/01/2021 4:37 PM CTA Chest PE Protocol: CTA Chest PE Protocol Diagnostic Radiology 07/01/2021 2:45 PM CR Chest 1 Vw Portable: CR Chest 1 Vw Portable [employer] Chest Wall Pain Chest wall pain is pain in or around the bones and muscles of your chest. Sometimes, an injury causes this pain. Excessive coughing or overuse of arm and chest muscles may also cause chest wall pain. Sometimes, the cause may not be known. This pain may take several weeks or longer to get better. Follow these instructions at home: Managing pain, stiffness, and swelling ??? If directed, put ice on the painful area: ? Put ice in a plastic bag. ? Place a towel between your skin and the bag. ? Leave the ice on for 20 minutes, 2???3 times per day. Activity ??? Rest as told by your health care provider. ??? Avoid activities that cause pain. These include any activities that use your chest muscles or your abdominal and side muscles to lift heavy items. Ask your health care provider what activities are safe for you. General instructions ??? Take urso-ocg-lecywgw and prescription medicines only as told by your health care provider. ??? Do not use any products that contain nicotine or tobacco, such as cigarettes, e-cigarettes, and chewing tobacco. These can delay healing after injury. If you need help quitting, ask your health care provider. ??? Keep all follow-up visits as told by your health care provider. This is important. Contact a health care provider if: ??? You have a fever. ??? Your chest pain becomes worse. ??? You have new symptoms. Get help right away if: ??? You have nausea or vomiting. ??? You feel sweaty or light-headed. ??? You have a cough with mucus from your lungs (sputum) or you cough up blood. ??? You develop shortness of breath. These symptoms may represent a serious problem that is an emergency. Do not wait to see if the symptoms will go away. Get medical help right away. Call your local emergency services (911 in the [place] Do not drive yourself to the hospital. Summary ??? Chest wall pain is pain in or around the bones and muscles of your chest. ??? Depending on the cause, it may be treated with ice, rest, medicines, and avoiding activities that cause pain. ??? Contact a health care provider if you have a fever, worsening chest pain, or new symptoms. ??? Get help right away if you feel light-headed or you develop shortness of breath. These symptoms may be an emergency. This information is not intended to replace advice given to you by your health care provider. Make sure you discuss any questions you have with your health care provider. Document Revised: 05/10/2019 Document Reviewed: 05/10/2019 [employer] Education ?? 2020 [employer]. Aspirin and Your Heart Aspirin is a medicine that prevents the cells in the blood that are used for clotting, called platelets, from sticking together. Aspirin can be used to help reduce the risk of blood clots, heart attacks, and other heart-related problems. Can I take aspirin? Your health care provider will help you determine whether it is safe and beneficial for you to take aspirin daily. Taking aspirin daily may be helpful if you: ??? Have had a heart attack or chest pain. ??? Are at risk for a heart attack. ??? Have undergone open-heart surgery, such as coronary artery bypass surgery (CABG). ??? Have had coronary angioplasty or a stent. ??? Have had certain types of stroke or transient ischemic attack (TIA). ??? Have peripheral artery disease (PAD). ??? Have chronic heart rhythm problems such as atrial fibrillation and cannot take an anticoagulant. ??? Have valve disease or have had surgery on a valve. What are the risks? Daily use of aspirin can cause side effects. Some of these include: ??? Bleeding. Bleeding problems can be minor or serious. An example of a minor problem is a cut that does not stop bleeding. An example of a more serious problem is stomach bleeding or, rarely, bleeding into the brain. Your risk of bleeding is increased if you are also taking non-steroidal anti-inflammatory drugs (NSAIDs). ??? Increased bruising. ??? Upset stomach. ??? An allergic reaction. People who have nasal polyps have an increased risk of developing an aspirin allergy. General guidelines ??? Take aspirin only as told by your health care provider. Make sure that you understand how much you should take and what form you should take. The two forms of aspirin are: ? Ocg-tuzsswb-gbtwhg.This type of aspirin does not have a coating and is absorbed quickly. This type of aspirin also comes in a chewable form. ? Enteric-coated. This type of aspirin has a coating that releases the medicine very slowly. Enteric-coated aspirin might cause less stomach upset than ilt-amyytoy-ceiqhh aspirin. This type of aspirin should not be chewed or crushed. ??? Limit alcohol intake to no more than 1 drink a day for non women and 2 drinks a day for men. Drinking alcohol increases your risk of bleeding. One drink equals 12 oz of beer, 5 oz of wine, or 1?? oz of hard liquor. Contact a health care provider if you: ??? Have unusual bleeding or bruising. ??? Have stomach pain or nausea. ??? Have ringing in your ears. ??? Have an allergic reaction that causes: ? Hives. ? Itchy skin. ? Swelling of the lips, tongue, or face. Get help right away if you: ??? Notice that your bowel movements are bloody, dark red, or black in color. ??? Vomit or cough up blood. ??? Have blood in your urine. ??? Cough, have noisy breathing (wheeze), or feel short of breath. ??? Have chest pain, especially if the pain spreads to the arms, back, neck, or jaw. ??? Have a severe headache, or a headache with confusion, or dizziness. These symptoms may represent a serious problem that is an emergency. Do not wait to see if the symptoms will go away. Get medical help right away. Call your local emergency services (911 in the [place] Do not drive yourself to the hospital. Summary ??? Aspirin can be used to help reduce the risk of blood clots, heart attacks, and other heart-related problems. ??? Daily use of aspirin can increase your risk of side effects. Your health care provider will help you determine whether it is safe and beneficial for you to take aspirin daily. ??? Take aspirin only as told by your health care provider. Make sure that you understand how much you can take and what form you can take. This information is not intended to replace advice given to you by your health care provider. Make sure you discuss any questions you have with your health care provider. Document Revised: 09/07/2018 Document Reviewed: 09/07/2018 [employer] Patient Education ?? 2020 [employer]. Acute Pain, Adult Acute pain is a type of sudden pain that may last for just a few days or for as long as six months. It is often related to an illness, injury, or medical procedure. Acute pain may be mild, moderate, or severe. Pain can make it hard for you to do your normal, daily activities. It can cause anxiety and lead to other problems if it is left untreated. Treatment depends on the cause and severity of your pain. Acute pain usually goes away once your injury has healed or you are no longer ill. Follow these instructions at home: Medicines ??? Take uqwf-bgj-vavkuzo and prescription medicines only as told by your health care provider. ??? Take the lowest dose of medicine for the shortest amount of time needed to relieve the pain. ??? If you are taking prescription pain medicine: ? Do not stop taking the medicine suddenly. Talk to your health care provider about how and when to discontinue prescription medicine. ? Do not take more pills than told by your health care provider even if your pain is severe. ? Do not take other acnv-ebg-kpqcteb pain medicines in addition to prescription pain medicine unless told by your health care provider. ? Ask your health care provider if the medicine requires you to avoid driving or using heavy machinery. ? Ask your health care provider if the medicine can cause constipation. You may need to take these actions to prevent or treat constipation: ? Drink enough fluid to keep your urine pale yellow. ? Eat foods that are high in fiber, such as beans, whole grains, and fresh fruits and vegetables. ? Take dfsl-bns-zkdwjvk or prescription medicines. ? Limit foods that are high in fat and processed sugars, such as fried or sweet foods. Managing pain, stiffness, and swelling If directed, put ice on the affected area. To do this: ??? Put ice in a plastic bag. ??? Place a towel between your skin and the bag. ??? Leave the ice on for 20 minutes, 2???3 times a day. If directed, apply heat to the affected area as often as told by your health care provider. Use the heat source that your health care provider recommends, such as a moist heat pack or a heating pad. ??? Place a towel between your skin and the heat source. ??? Leave the heat on for 20???30 minutes. ??? Remove the heat if your skin turns bright red. This is especially important if you are unable to feel pain, heat, or cold. You may have a greater risk of getting burned. Activity ??? Rest as told by your health care provider. ??? Return to your normal activities as told by your health care provider. Ask your health care provider what activities are safe for you. General instructions ??? Check your pain level as told by your health care provider. ??? Ask your health care provider if other strategies such as distraction, relaxation, or physical therapies can help your pain. ??? Keep all follow-up visits as told by your health care provider. This is important. Contact a health care provider if: ??? Your pain is not controlled by medicine. ??? Your pain does not improve or gets worse. ??? You have side effects from pain medicines, such as vomiting or confusion. Get help right away if you: ??? Have severe pain. ??? Have trouble breathing. ??? Lose consciousness. ??? Have chest pain or pressure that lasts for more than a few minutes, or if you have other symptoms along with chest pain, including if you: ? Have pain or discomfort in one or both arms, your back, neck, jaw, or stomach. ? Have shortness of breath. ? Break out in a cold sweat. ? Feel nauseous. ? Become light-headed. These symptoms may represent a serious problem that is an emergency. Do not wait to see if the symptoms will go away. Get medical help right away. Call your local emergency services (911 in the [place] Do not drive yourself to the hospital. Summary ??? Acute pain may be mild, moderate, or severe. It usually goes away once your injury has healed or you are no longer ill. ??? Take xnnu-vtz-spjnasj and prescription medicines only as told by your health care provider. ??? Ask your health care provider if the medicine prescribed to you can cause constipation. ??? Contact a health care provider if your pain is not controlled by medicine. This information is not intended to replace advice given to you by your health care provider. Make sure you discuss any questions you have with your health care provider. Document Revised: 03/24/2020 Document Reviewed: 03/24/2020 [employer] Patient Education ?? 2020 [employer]. Coronary Angiogram A coronary angiogram is an X-ray procedure that is used to examine the arteries in the heart. Contrast dye is injected through a long, thin tube (catheter) into these arteries. Then X-rays are taken to show any blockage in these arteries. You may have this procedure if you: ??? Are having chest pain, or other symptoms of angina, and you are at risk for heart disease. ??? Have an abnormal stress test or test of your heart's electrical activity (electrocardiogram, or ECG). ??? Have chest pain and heart failure. ??? Are having irregular heart rhythms. A coronary angiogram or heart catheterization can show if you have valve disease or a disease of the aorta. This procedure can also be used to check the overall function of your heart muscle. Let your health care provider know about: ??? Any allergies you have, including allergies to medicines or contrast dye. ??? All medicines you are taking, including vitamins, herbs, eye drops, creams, and prcr-vxb-tpasczr medicines. ??? Any problems you or family members have had with anesthetic medicines. ??? Any blood disorders you have. ??? Any surgeries you have had. ??? Any history of kidney problems or kidney failure. ??? Any medical conditions you have. ??? Whether you are or may be . ??? Whether you are . What are the risks? Generally, this is a safe procedure. However, problems may occur, including: ??? Infection. ??? Allergic reaction to medicines or dyes that are used. ??? Bleeding from the insertion site or other places. ??? Damage to nearby structures, such as blood vessels, or damage to kidneys from contrast dye. ??? Irregular heart rhythms. ??? Stroke (rare). ??? Heart attack (rare). What happens before the procedure? Staying hydrated Follow instructions from your health care provider about hydration, which may include: ??? Up to 2 hours before the procedure ??? you may continue to drink clear liquids, such as water, clear fruit juice, black coffee, and plain tea. Eating and drinking restrictions Follow instructions from your health care provider about eating and drinking, which may include: ??? 8 hours before the procedure ??? stop eating heavy meals or foods, such as meat, fried foods, or fatty foods. ??? 6 hours before the procedure ??? stop eating light meals or foods, such as toast or cereal. ??? 6 hours before the procedure ??? stop drinking milk or drinks that contain milk. ??? 2 hours before the procedure ??? stop drinking clear liquids. Medicines Ask your health care provider about: ??? Changing or stopping your regular medicines. This is especially important if you are taking diabetes medicines or blood thinners. ??? Taking medicines such as aspirin and ibuprofen. These medicines can thin your blood. Do not take these medicines unless your health care provider tells you to take them. Aspirin may be recommended before coronary angiograms even if you do not normally take it. ??? Taking jegv-bnj-llyrxrh medicines, vitamins, herbs, and supplements. General instructions ??? Do not use any products that contain nicotine or tobacco for at least 4 weeks before the procedure. These products include cigarettes, e-cigarettes, and chewing tobacco. If you need help quitting, ask your health care provider. ??? You may have an exam or testing. ??? Plan to have someone take you home from the hospital or clinic. ??? If you will be going home right after the procedure, plan to have someone with you for 24 hours. ??? Ask your health care provider: ? How your insertion site will be marked. ? What steps will be taken to help prevent infection. These may include: ? Removing hair at the insertion site. ? Washing skin with a germ-killing soap. ? Taking antibiotic medicine. What happens during the procedure? You will lie on your back on an X-ray table. ??? An IV will be inserted into one of your veins. ??? Electrodes will be placed on your chest. ??? You will be given one or more of the following: ? A medicine to help you relax (sedative). ? A medicine to numb the catheter insertion area (local anesthetic). ??? You will be connected to a continuous ECG monitor. ??? The catheter will be inserted into an artery in one of these areas: ? Your groin area in your upper thigh. ? Your wrist. ? The fold of your arm, near your elbow. ??? An X-ray procedure (fluoroscopy) will be used to help guide the catheter to the opening of the blood vessel to be used. ??? A dye will be injected into the catheter and X-rays will be taken. The dye will help to show any narrowing or blockages in the heart arteries. ??? Tell your health care provider if you have chest pain or trouble breathing. ??? If blockages are found, another procedure may be done to open the artery. ??? The catheter will be removed after the fluoroscopy is complete. ??? A bandage (dressing) will be placed over the insertion site. Pressure will be applied to stop bleeding. ??? The IV will be removed. The procedure may vary among health care providers and hospitals. What happens after the procedure? Your blood pressure, heart rate, breathing rate, and blood oxygen level will be monitored until you leave the hospital or clinic. ??? You will need to lie still for a few hours, or for as long as told by your health care provider. ? If the procedure is done through the groin, you will be told not to bend or cross your legs. ??? The insertion site and the pulse in your foot or wrist will be checked often. ??? More blood tests, X-rays, and an ECG may be done. ??? Do not drive for 24 hours if you were given a sedative during your procedure. Summary ??? A coronary angiogram is an X-ray procedure that is used to examine the arteries in the heart. ??? Contrast dye is injected through a long, thin tube (catheter) into each artery. ??? Tell your health care provider about any allergies you have, including allergies to contrast dye. ??? After the procedure, you will need to lie still for a few hours and drink plenty of fluids. This information is not intended to replace advice given to you by your health care provider. Make sure you discuss any questions you have with your health care provider. Document Revised: 05/29/2020 Document Reviewed: 05/29/2020 [employer] Patient Education ?? 2020 [employer] Nonspecific Chest Pain, Pediatric Chest pain is an uncomfortable, tight, or painful feeling in the chest. Chest pain may go away on its own and is usually not dangerous. There are many possible causes of your child's chest pain. Such as: ??? A pulled muscle (strain). ??? Muscle cramping. ??? A pinched nerve. ??? Coughing. ??? Stress. ??? Breathing too quickly, or deeply (hyperventilating). ??? Acid reflux or heartburn. Some causes of chest pain are more serious than others. Such as: ??? A direct blow to the chest. ??? A lung infection (pneumonia). ??? Asthma. ??? Inflammation of the lining of the lung (pleuritis). ??? Heart issues. This is rare in children. Your child's health care provider may do lab tests and other studies to find the cause of your child's pain. Treatment will depend on the cause of your child's chest pain. Follow these instructions at home: General instructions ??? Give jklf-yjy-qylkfsd and prescription medicines only as told by your child's health care provider. ??? Watch your child's condition for any changes. Tell your child's health care provider about any new symptoms. ??? If your child was prescribed an antibiotic medicine, give it as told by his or her health care provider. Do not stop giving the antibiotic even if your child starts to feel better. ??? Keep all follow-up visits as told by your child's health care provider. This is important. Managing pain, stiffness, and swelling ??? If directed, put ice on the injured area. ? Put ice in a plastic bag. ? Place a towel between your child's skin and the bag. ? Leave the ice on for 20 minutes, 2???3 times a day Activity ??? Have your child avoid the following if it causes pain: ? Physical activity. ? Lifting heavy objects. Contact a health care provider if: ??? Your child: ? Has a fever. ? Coughs up white phlegm (sputum) that is thick. ??? Your child's chest pain does not go away. Get help right away if your child: ??? Has chest pain that becomes severe and radiates into the neck, arms, or jaw. ??? Has trouble breathing. ??? Has a fever and symptoms suddenly get worse. ??? Has a heart that starts to beat fast while he or she is at rest. ??? Who is younger than 3 months, has a temperature of 100.4??F (38??C) or higher. ??? Faints. ??? Coughs up blood. ??? Has chest pain that gets worse. Summary ??? Chest pain is an uncomfortable, tight, or painful feeling in the chest. There are many possible causes of chest pain. ??? Chest pain may go away on its own and is usually not dangerous. ??? Give nxmk-ocx-hybakpz and prescription medicines only as told by your child's health care provider. If your child was prescribed an antibiotic medicine, give it as told by his or her health care provider. Do not stop giving the antibiotic even if your child starts to feel better. ??? Watch your child's condition for any changes. ??? Get help right away if your child's chest pain gets worse. This information is not intended to replace advice given to you by your health care provider. Make sure you discuss any questions you have with your health care provider. Document Revised: 06/08/2019 Document Reviewed: 06/08/2019 [employer] Patient Education ?? 2020 [employer] Nonspecific Chest Pain Chest pain can be caused by many different conditions. Some causes of chest pain can be life-threatening. These will require treatment right away. Serious causes of chest pain include: ??? Heart attack. ??? A tear in the body's main blood vessel. ??? Redness and swelling (inflammation) around your heart. ??? Blood clot in your lungs. Other causes of chest pain may not be so serious. These include: ??? Heartburn. ??? Anxiety or stress. ??? Damage to bones or muscles in your chest. ??? Lung infections. Chest pain can feel like: ??? Pain or discomfort in your chest. ??? Crushing, pressure, aching, or squeezing pain. ??? Burning or tingling. ??? Dull or sharp pain that is worse when you move, cough, or take a deep breath. ??? Pain or discomfort that is also felt in your back, neck, jaw, shoulder, or arm, or pain that spreads to any of these areas. It is hard to know whether your pain is caused by something that is serious or something that is not so serious. So it is important to see your doctor right away if you have chest pain. Follow these instructions at home: Medicines ??? Take vmbq-gjd-ggcehmv and prescription medicines only as told by your doctor. ??? If you were prescribed an antibiotic medicine, take it as told by your doctor. Do not stop taking the antibiotic even if you start to feel better. Lifestyle ??? Rest as told by your doctor. ??? Do not use any products that contain nicotine or tobacco, such as cigarettes, e-cigarettes, and chewing tobacco. If you need help quitting, ask your doctor. ??? Do not drink alcohol. ??? Make lifestyle changes as told by your doctor. These may include: ? Getting regular exercise. Ask your doctor what activities are safe for you. ? Eating a heart-healthy diet. A diet and consumer insights specialist (dietitian) can help you to learn healthy eating options. ? Staying at a healthy weight. ? Treating diabetes or high blood pressure, if needed. ? Lowering your stress. Activities such as yoga and relaxation techniques can help. General instructions ??? Pay attention to any changes in your symptoms. Tell your doctor about them or any new symptoms. ??? Avoid any activities that cause chest pain. ??? Keep all follow-up visits as told by your doctor. This is important. You may need more testing if your chest pain does not go away. Contact a doctor if: ??? Your chest pain does not go away. ??? You feel depressed. ??? You have a fever. Get help right away if: ??? Your chest pain is worse. ??? You have a cough that gets worse, or you cough up blood. ??? You have very bad (severe) pain in your belly (abdomen). ??? You pass out (faint). ??? You have either of these for no clear reason: ? Sudden chest discomfort. ? Sudden discomfort in your arms, back, neck, or jaw. ??? You have shortness of breath at any time. ??? You suddenly start to sweat, or your skin gets clammy. ??? You feel sick to your stomach (nauseous). ??? You throw up (vomit). ??? You suddenly feel lightheaded or dizzy. ??? You feel very weak or tired. ??? Your heart starts to beat fast, or it feels like it is skipping beats. These symptoms may be an emergency. Do not wait to see if the symptoms will go away. Get medical help right away. Call your local emergency services (911 in the [place] Do not drive yourself to the hospital. Summary ??? Chest pain can be caused by many different conditions. The cause may be serious and need treatment right away. If you have chest pain, see your doctor right away. ??? Follow your doctor's instructions for taking medicines and making lifestyle changes. ??? Keep all follow-up visits as told by your doctor. This includes visits for any further testing if your chest pain does not go away. ??? Be sure to know the signs that show that your condition has become worse. Get help right away if you have these symptoms. This information is not intended to replace advice given to you by your health care provider. Make sure you discuss any questions you have with your health care provider. Document Revised: 05/10/2019 Document Reviewed: 05/10/2019 [employer] Patient Education ?? 2020 [employer] Emergency Awareness and Preventative Care STROKE is an EMERGENCY Every Minute Counts Act FAST and Check for these signs: FACE Does the face look uneven? ARM Does one arm drift down? SPEECH Does their speech sound strange? TIME Call at any sign of stroke Stroke Risk Factors Atrial Fibrillation (irregular heartbeat) Diabetes Family history of stroke Heart Disease Heavy alcohol use High Blood Pressure High Cholesterol Physical inactivity and obesity Smoking Cigarette Smoking The facts are clear, cigarette smoking will shorten your life. Smoking can cause many illnesses along the way. As a healthcare provider, we recommend that you stop smoking. Assistance with quitting is available by contacting 1-287-MHTINOW. This is a free resource providing counseling, support, and referral. Or you may contact your personal physician. National Suicide Prevention Lifeline: The National Suicide Prevention Lifeline is a national network of local crisis centers that provides free and confidential emotional support to people in suicidal crisis or emotional distress 24 hours a day, 7 days a week. Don't Wait! Stop a Heart Attack Before it Starts What is a heart attack? A heart attack is damage or to a part of the heart from severely decreased or lack of blood flow to the heart. Over time, arteries can become narrow from the buildup of fat and cholesterol, which is called plaque. The plaque can rupture causing a blood clot to form. When the blood clot forms, the artery can become severely narrowed or completely blocked, causing a heart attack. Heart attack is the leading cause of in the [place]. 85% of muscle damage occurs within the first 2 hours. Delay in the recognition of heart attack symptoms increases the chances of . Know the early symptoms of a heart attack: Nausea Feeling of fullness in chest Jaw Pain Pain that travels down one or both arms Fatigue/being tired Anxiety Back Pain Chest pressure, squeezing, or discomfort Shortness of breath Sweating, or a cold sweat Feeling of impending doom There are unusual signs of a heart attack, too! Women, the elderly, and diabetics may present with atypical symptoms: Fainting/dizziness Weakness Confusion Risk Factors for a Heart Attack Some heart disease risk factors, such as age and family history, cannot be changed. Others, like smoking and lack of exercise, can be changed. Smoking High Cholesterol High Blood Pressure Family History Obesity Age Gender (Males are at higher risk) Lack of Exercise Diabetes Diet Stress Excessive Alcohol Intake If you or someone you know is experiencing the signs and symptoms of a heart attack, DON???T DELAY. Call immediately and seek help. If someone collapses, perform CPR! Do not attempt to drive if you are having symptoms of heart attack. Hands-Only CPR Why Hands-Only CPR? Hands-Only CPR has been shown to be as effective as conventional CPR for cardiac arrests that occur outside of a hospital. Survival depends on immediately receiving CPR from someone nearby. How do you perform Hands-Only CPR? There are two easy steps: Call 9-1-1 if you see a teen or adult collapse Push hard and fast in the center of the chest at a beat of 100 beats per minute. Save a life! 4 WAYS TO GET AHEAD OF SEPSIS SEPSIS is a MEDICAL EMERGENCY. Time matters! Infections put you and your family at risk for a life-threatening condition called sepsis. Sepsis is the body's extreme response to an infection. It is life-threatening, and without timely treatment, sepsis can rapidly lead to tissue damage, organ failure, and . Sepsis happens when an infection you already have-in your skin, lungs, urinary tract or somewhere else-triggers a chain reaction throughout your body. 1 PREVENT INFECTIONS Take good care of chronic conditions. Talk to your doctor about getting the recommended vaccines. 2 PRACTICE GOOD HYGIENE Wash your hands frequently. Keep cuts or open sores clean and covered until they are healed. 3 KNOW THE SYMPTOMS Confusion or disorientation Shortness of breath High heart rate Fever, shivering, or feeling very cold Extreme pain or discomfort Clammy or sweaty skin 4 ACT FAST Get medical care IMMEDIATELY if you suspect sepsis or if you have an infection that is not getting better or is getting worse. To learn more about sepsis and how to prevent infections, visit www.cdc.gov/sepsis. The examination and treatment you have received in the Emergency Department has been done to provide an appropriate evaluation and stabilizing treatment on an emergency basis only. Given the limited resources, it is not meant to be a substitute for complete medical care. The follow-up doctor you named will receive a copy of your records and all test reports. IT IS IMPORTANT THAT YOU SCHEDULE A FOLLOW-UP APPOINTMENT AND ARE RE-EVALUATED. You should report any new complaints, symptoms, or remaining problems at that time. IT IS IMPOSSIBLE FOR THE EMERGENCY DEPARTMENT TO RECOGNIZE AND TREAT ALL ELEMENTS OF INJURY OR ILLNESS IN A SINGLE VISIT. If you have been referred to a specialist physician, it means that we believe you may have a condition that requires the expertise of a specialist. These physicians work in partnership with the hospital and have agreed to see referred patients in their office for further evaluation. KEEP IN MIND THAT THE SPECIALIST HAS HIS/HER OWN OFFICE POLICIES WHICH MAY REQUIRE PROPER INSURANCE OR PAYMENT UP FRONT BEFORE THE SPECIALIST WILL SEE YOU. It is your responsibility to call the specialist physician to make an appointment. We do not have the ability to refer patients to specialists/physicians that work with specific insurance companies. Please be advised that all financial charges or billing practices are determined by that practice, not the hospital. If your insurance company requires that you see a specialist from their approved list, it is your responsibility to contact your insurance company to make those arrangements. It is also your responsibility to follow any other requirements of your insurance company necessary to obtain coverage for claims submitted. We will bill your insurance; however, you are responsible today for any co-pay amounts. You will receive a separate bill for any services you may have received including: emergency, radiology, or pathology physicians. Patient Name:MONIKA ZIMMERYE I have received this information and was given the opportunity to ask questions. Patient/Railroad Conductor Name: Patient/Railroad Conductor Signature: Relationship to Patient: Clinician/Hospital Railroad Conductor Signature: Please Provide a Telephone Number Where You Can Be Reached: Is it Permissible To Leave a Message? Date: Electronically signed by Luigi, [facility] Conversion Senior Net Developer Architect Cerner at 03/07/2023 9:48 AM CDT documented in this encounter Plan of Treatment Not on file documented as of this encounter Visit Diagnoses Not on filedocumented in this encounter Care Teams Golf Course Patroller Relationship Specialty Start Date End Date Taina Lyles, CONSTRUCTION FRAMER [address] [place] [address] PCP - General Nurse Practitioner 06/15/23 documented as of this encounter
--- OUTSIDE RECORDS SUMMARY | 2025-06-23 17:45 | XMS_ITS | Encounter Summary ---
Author Organization [employer] ([place], [place], [place], [place]) Address [address] [place] [address] Care Team Providers Care Tax Clerk Name Role Phone Taina Lyles ADRI Primary Care Provider [phone] Encounter Details Date Type Department Care Team (Late st Contact Info) Description 07/02/2021 Transcribed Document [facility] [place] Family Medicine [address] [place] [address] ProviderWilliam MD [address], [place] [address] Social History Tobacco Use Types Packs/Day Years Used Date Smoking Tobacco: Never Assessed Comments Unknown Sex and Gender Information Value Date Recorded Sex Assigned at Not on file Legal Sex Female 12:21 PM CDT Gender Identity Not on file Sexual Orientation Not on file documented as of this encounter Miscellaneous Notes * Cerner Conversion Note - William Reyes MD - 07/02/2021 12:33 PM CDT ED Discharge Entered On: 07/02/2021 12:33 EDT Performed On: 07/02/2021 12:33 EDT by Katt Le RN-PATIENT CARE BEDSIDE NON-EXEMPT Discharge Process Patient Disposition : Discharge Personal Belongings With Patient : Yes Patient Education Completed : Yes Teaching Evaluation : Verbalizes understanding IV Discontinued : Yes Nursing Documentation Completed : Yes Katt Le RN-PATIENT CARE BEDSIDE NON-EXEMPT - 07/02/2021 12:33 EDT ED Discharge Vital Signs Peripheral Pulse Rate : 70 bpm Respiratory Rate : 18 Breaths/Min Systolic Blood Pressure : 96 mmHg Diastolic Blood Pressure : 56 mmHg (LOW) Oxygen Saturation : 95 % Katt Le RN-PATIENT CARE BEDSIDE NON-EXEMPT - 07/02/2021 12:33 EDT ED Discharge Discharge To : Home with ambulatory/outpatient follow-up Mode Of Departure : Ambulatory Discharge Instructions Reviewed With, Opportunity For Questions Given : Patient Katt Le RN-PATIENT CARE BEDSIDE NON-EXEMPT - 07/02/2021 12:33 EDT Electronically signed by [facility], [facility] Conversion Lab Tester Cerner at 03/07/2023 9:50 AM CDT documented in this encounter Plan of Treatment Not on file documented as of this encounter Visit Diagnoses Not on filedocumented in this encounter Care Teams Tax Clerk Relationship Specialty Start Date End Date Taina Lyles, ELEVATED GUARD [address] [place] [address] PCP - General Nurse Practitioner 06/15/23 documented as of this encounter
--- OUTSIDE RECORDS SUMMARY | 2025-06-23 17:45 | XMS_ITS | Encounter Summary ---
Author Organization Healthcare Address [address] [place] [address] Care Team Providers Care Industrial Property Appraiser Name Role Phone Lea Fernando Unavailable [phone] GRADER OPERATOR Unavailable [phone] Alvarez Zimmer MD Primary Care Provider [phone] Tamera Isabel LPN Unavailable Unavailabl e Encounter Details Date Type Department Care Team (Latest Contact Info) Description 06/20/2025 Travel Social History Tobacco Use Types Packs/Day [...] often do you attend [facility] or nondenominational services? Patient unable to answer [...] any time in the past 12 [facility], were you homeless or living in a halfway (including now)? No 03/06/2025 Humiliation, Afraid, Rape, [...] you attend chur ch or nondenominational services? Never 05/29/2025 Do you belong to [...] drinks on one occasion? Never 06/05/2025 [facility] Occupational Stress Questionnaire Answer [...] any time in the past 12 m [facility], were you homeless or living [...] drink first t kennedy in the morning (EYE-RAKER BUFFING WHEEL) to steady your nerves or to get [...] Appointment [facility] [address] [place] [address] 06/27/2025 10:30 AM EDT Appointment [facility] [address] [place] [address] 07/04/2025 10:30 AM EDT Appointment [facility] [address] [place] [address] 07/04/2025 11:30 AM EDT Appointment [facility] [address] [place] [address] 07/09/2025 2:40 PM EDT Office Visit [facility] [address], [address] [place] [address] Ar Dominique MD [address] [place] [address] 07/11/2025 10:30 AM EDT Appointment [facility] [address] [place] [address] 07/11/2025 11:30 AM EDT Appointment [facility] [address] [place] [address] 07/18/2025 10:30 AM EDT Appointment [facility] [address] [place] [address] 07/18/2025 11:30 AM EDT Appointment [facility] [address] [place] [address] 07/25/2025 10:30 AM EDT Appointment [facility] [address] [place] [address] 07/25/2025 11:30 AM EDT Appointment [facility] [address] [place] [address] 07/31/2025 9:00 AM EDT Office Visit [address] [address] Alvarez Zimmer MD [address] [place] [id number] 08/20/2025 9:30 AM EDT Clinical Support [facility] [address] [place] [address] 08/20/2025 10:30 AM EDT Social Work [facility] [address] [place] [address] [place] [address] 08/20/2025 11:00 AM EDT Office Visit [facility] [address] [place] [address] Jude Duque MD [address] [place] [address] 10/30/2025 1:20 PM EST Office Visit [facility] Endocr[facility]ology [address] [place] [address] Sharif Moreno, DPNicole [address] [place] [address] documented as of this encounter [...] documented as of this encounter Care Teams Industrial Property Appraiser Relationship Specialty Start Date End Date Alvarez Zimmer MD [address] [place] [id number] PCP - General Family Medicine 12/07/24 Lea Fernando [address] [facility] [address] [place] [phone] Merchandise Buyer Endocrinology 08/29/24 Rachel Ray APRN [address] [facility] [address] [place] [phone] Nurse Practitioner Gastroenterology 09/24/24 Tamera Isabel LPN VALUE-BASED TRANSFORMATION PROGRAM Licensed Practical Nurse 05/29/25 documented as of this encounter
--- OUTSIDE RECORDS SUMMARY | 2025-06-23 17:45 | XMS_ITS | Encounter Summary ---
Author Organization [employer] ([place], [place], [place], [place]) Address [address] [place] [address] Care Team Providers Care Tool Design Drafter Name Role Phone Taina Lyles ADRI Primary Care Provider [phone] Encounter Details Date Type Department Care Team (Late st Contact Info) Description 07/02/2021 Transcribed Document [facility] [place] [address] [place] [address] ProviderWilliam MD [address] [place] [place], [place] [id number] Social History Tobacco Use Types Packs/Day Years [...] MD - 07/02/2021 12:33 PM CDT ED Event Note Entered On: 07/02/2021 12:34 EDT Performed On: 07/02/2021 12:33 EDT by Katt Le RN-PATIENT CARE BEDSIDE NON-EXEMPT ED Event Note ED Event Date/Time : 07/02/2021 12:33 EDT ED Description of Event : pt picked up from er by son after d/c Katt Le RN-PATIENT CARE BEDSIDE NON-EXEMPT - 07/02/2021 12:33 EDT Electronically signed by Maddie Meyers Conversion Apartment Maintenance Technician Certhierry at 03/07/2023 9:35 AM CDT documented in this encounter Plan of Treatment Not on file documented as of this encounter Visit Diagnoses Not on filedocumented in this encounter Care Teams Tool Design Drafter Relationship Specialty Start Date End Date Taina Lyles, MECHANICAL DESIGN DRAFTER [address] [place] [address] PCP - General Nurse Practitioner 06/15/23 documented as of this encounter
--- OUTSIDE RECORDS SUMMARY | 2025-06-23 17:45 | XMS_ITS | Encounter Summary ---
Author Organization Healthcare Address [address] [place] [address] Care Team Providers Care Colorer Name Role Phone Lea Fernando Unavailable [phone] Rachel Ray FOREST FIRE OFFICER Unavailable [phone] Alvarez Zimmer MD Primary Care Provider [phone] Tamera Isabel RACING CAR DRIVER Unavailable Unavailabl e Encounter Details Date Type Department Care Team (Late st Contact Info) Description 06/14/2025 Telephone [facility] Medicine [address] [place] [address] Alvarez Zimmer MD [address] [place] [address] Social History Tobacco Use Types [...] attend [facility] or hindu services? Patient unable to answer 01/10/2025 Do you belong to any clubs o r organizations such as uatsdin groups, unions, fraternal or athletic groups, or [...] any time in the past 12 m [facility], were you homeless or [...] How often do you attend chur or hindu services? Never 05/29/2025 Do you belong to any clubs o r organizations such as uatsdin groups, unions, fraternal or athletic groups, or [...] 06/05/2025 [facility] - Occupational Stress Questionnaire [...] any time in the past 12 m [facility], were you homeless or [...] drink first t kennedy in the morning (EYE-WAX CUTTER) to steady your nerves or to [...] * Telephone Encounter - Christy Buckley - 06/14/2025 4:07 PM EDT Pt has declined hospice care. She is currently on transplant list * Telephone Encounter - Alvarez Zimmer MD - 06/14/2025 2:47 PM EDT I would be happy to with palliative care. I would check with family but I suspect the son is best contact representative. * Telephone Encounter - Christy Buckley - 06/14/2025 1:55 PM EDT Skye with [facility] called questioning if Dr. Zimmer will be following the patient? Who is the best contact representative, son or sister? documented in this encounter Plan of Treatment Upcoming Encounters Date Type Department Care Team ([facility] st Contact Info) Description 06/27/2025 9:30 AM EDT Appointment [facility] [address] [place] [address] 06/27/2025 10:30 AM EDT Appointment [facility] [address] [place] [address] 07/04/2025 10:30 AM EDT Appointment [facility] [address] [place] [address] 07/04/2025 11:30 AM EDT Appointment [facility] [address] [place] [address] 07/09/2025 2:40 PM EDT Office Visit [facility] Bone & Mineral Metabolism [address] [facility], [address] [place] [address] Ar Dominique MD [address] [facility] [address] [place] [address] 07/11/2025 10:30 AM EDT Appointment [facility] [address] [place] [address] 07/11/2025 11:30 AM EDT Appointment [facility] [address] [place] [address] 07/18/2025 10:30 AM EDT Appointment [facility] [address] [place] [address] 07/18/2025 11:30 AM EDT Appointment [facility] [address] [place] [address] 07/25/2025 10:30 AM EDT Appointment [facility] [address] [place] [address] 07/25/2025 11:30 AM EDT Appointment [facility] [address] [place] [address] 07/31/2025 9:00 AM EDT Office Visit [facility] [address] [place] [address] Alvarez Zimmer MD [address] [place] [address] 08/20/2025 9:30 AM EDT Clinical Support [facility] [address] [phone] 08/20/2025 10:30 AM EDT Social Work [facility] [address] [place] [phone] Deysi Ortega [place], [place] [id number] 08/20/2025 11:00 AM EDT Office Visit [facility] [address] [place] [address] Jude Duque MD [address] [place] [address] 10/30/2025 1:20 PM EST Office Visit [facility] Endocrinology [address] [place] [address] Sharif Moreno, DPNicole [address] [place] [address] documented as of this encounter [...] documented as of this encounter Care Teams Colorer Relationship Specialty Start Date End Date Alvarez Zimmer MD [address] [place] [address] PCP - General Family Medicine 12/07/24 Lea Fernando [address] [place] [address] Semiconductor Packages Sealer Endocrinology 08/29/24 Rachel Ray, FOREST FIRE OFFICER [address] [place] [address] Nurse Practitioner Gastroenterology 09/24/24 Tamera Isabel LPN VALUE-BASED TRANSFORMATION PROGRAM Licensed Practical Nurse 05/29/25 documented as of this encounter
--- OUTSIDE RECORDS SUMMARY | 2025-06-23 17:45 | XMS_ITS | Encounter Summary ---
Author Organization Healthcare Address [address] [place] [address] Care Team Providers Care Activity Leader Name Role Phone Lea Fernando Unavailable [phone] Rachel Ray ONSITE HEALTH COACH Unavailable [phone] Alvarez Zimmer MD Primary Care Provider [phone] Tamera Isabel LPN Unavailable Unavailabl e Reason for Referral * Imaging (Routine) - Pending Review Specialty Diagnoses / Procedures Referred By Contac t Referred To Contact Radiology Diagnoses Other ascites Procedures US Guided Abdominal Paracentesis Marianna Gordon APRN [address] [place] [address] Phone: tel: fax: Referral ID Status Reason Start Date Expiration Date V isits Requested Visits Authorized [id number] Pending Review 06/14/2025 12/14/2026 1 1 * Imaging (Routine) - Pending Review Specialty Diagnoses / Procedures Referred By Contac t Referred To Contact Radiology Diagnoses Shortness of breath Pleural effusion Procedures US Guided Thoracentesis Marianna Gordon APRN [address] [place] [address] Phone: tel: fax: Referral ID Status Reason Start Date Expiration Date V isits Requested Visits Authorized [id number] Pending Review 06/14/2025 12/14/2026 1 1 * Imaging (Routine) - Pending Review Specialty Diagnoses / Procedures Referred By Contac t Referred To Contact Radiology Diagnoses Other ascites Procedures US Guided Abdominal Paracentesis Marianna Gordon APRN [address] [place] [address] Phone: tel: fax: Referral ID Status Reason Start Date Expiration Date V isits Requested Visits Authorized [id number] Pending Review 06/14/2025 12/14/2026 1 1 * Imaging (Routine) - Pending Review Specialty Diagnoses / Procedures Referred By Contac t Referred To Contact Radiology Diagnoses Shortness of breath Pleural effusion Procedures US Guided Thoracentesis Marianna Gordon APRN [address] [place] [address] Phone: tel: fax: Referral ID Status Reason Start Date Expiration Date V isits Requested Visits Authorized [id number] Pending Review 06/14/2025 12/14/2026 1 1 * Imaging (Routine) - Authorized Specialty Diagnoses / Procedures Referred By Contac t Referred To Contact Radiology Diagnoses Other ascites Procedures US Guided Abdominal Paracentesis Marianna Gordon APRN [address] [place] [address] Phone: tel: fax: Referral ID Status Reason Start Date Expiration Date V isits Requested Visits Authorized [id number] Authorized 06/14/2025 12/14/2026 1 1 * Imaging (Routine) - Authorized Specialty Diagnoses / Procedures Referred By Contac t Referred To Contact Radiology Diagnoses Shortness of breath Pleural effusion Procedures US Guided Thoracentesis Marianna Gordon APRN [address] [place] [address] Phone: tel: fax: Referral ID Status Reason Start Date Expiration Date V isits Requested Visits Authorized [id number] Authorized 06/14/2025 12/14/2026 1 1 Encounter Details Date Type Department Care Team (Late st Contact Info) Description 06/14/2025 Orders Only [facility] Inter[facility]iology [address] [place] [phone] Marianna Gordon APRN [address] [place] [address] Shortness of breath (Primary Dx); Pleural effusion; Other ascites Social History Tobacco Use Types Packs/Day Years [...] you attend [facility] or uatsdin services? Patient unable to answer [...] time in the past 12 m [facility], were you homeless or living [...] time in the past 12 m [facility], were you homeless or living [...] drink first t kennedy in the morning (EYE-ASSOCIATE ATTORNEY) to steady your nerves or to get [...] Appointment [facility] [address] [place] [address] 06/27/2025 10:30 AM EDT Appointment [facility] [address] [place] [address] 07/04/2025 10:30 AM EDT Appointment [facility] [address] [place] [address] 07/04/2025 11:30 AM EDT Appointment [facility] [address] [place] [address] 07/09/2025 2:40 PM EDT Office Visit [facility] [place] [address], [address] [place] [address] Ar Dominique MD [address] [place] [address] 07/11/2025 10:30 AM EDT Appointment [facility] [address] [place] [address] 07/11/2025 11:30 AM EDT Appointment [facility] [address] [place] [address] 07/18/2025 10:30 AM EDT Appointment [facility] [address] [place] [address] 07/18/2025 11:30 AM EDT Appointment [facility] [address] [place] [address] 07/25/2025 10:30 AM EDT Appointment [facility] [address] [place] [address] 07/25/2025 11:30 AM EDT Appointment [facility] [address] [place] [address] 07/31/2025 9:00 AM EDT Office Visit [facility] [address] [place] [address] Alvarez Zimmer MD [address] [place] [address] 08/20/2025 9:30 AM EDT Clinical Support [facility] [address] [place] [address] 08/20/2025 10:30 AM EDT Social Work [facility] [address] [place] [address] Deysi Ortega [place], [place] [phone] 08/20/2025 11:00 AM EDT Office Visit [facility] [address] [place] [address] Jude Duque MD [address] [place] [address] 10/30/2025 1:20 PM EST Office Visit [facility] Endocrinology [address] [place] [address] Sharif Moreno, DPNicole [address] [place] [address] Scheduled Orders Name Type Priority Associated Diagnoses Orde r Schedule US Guided Thoracentesis Imaging Routine Shortness of breath Pleural effusion Expected: 07/11/2025 (Approximate), Expires: 12/16/2026 US Guided Abdominal Paracentesis Imaging Routine Other ascites Expected: 07/11/2025 (Approximate), Expires: 12/16/2026 US Guided Thoracentesis Imaging Routine Shortness of breath Pleural effusion Expected: 07/18/2025 (Approximate), Expires: 12/16/2026 US Guided Abdominal Paracentesis Imaging Routine Other ascites Expected: 07/18/2025 (Approximate), Expires: 12/16/2026 US Guided Thoracentesis Imaging Routine Shortness of breath Pleural effusion Expected: 07/25/2025 (Approximate), Expires: 12/16/2026 US Guided Abdominal Paracentesis Imaging Routine Other ascites Expected: 07/25/2025 (Approximate), Expires: 12/16/2026 documented as of this encounter Visit Diagnoses Diagnosis Shortness of breath- Primary Pleural effusion Unspecified pleural effusion Other ascites documented in this encounter Additional Health Concerns Assessment Noted Time PHQ-9 Depression Total Score: 6 06/11/20 10:59 AM EDT A fall risk assessment has been complete d for the patient 06/11/2025 10:59 AM EDT A Body Mass Index follow-up plan has been documented for the patient 06/13/2025 2:00 PM EDT documented as of this encounter Care Teams Activity Leader Relationship Specialty Start Date End Date Alvarez Zimmer MD [address] [place] [address] PCP - General Family Medicine 12/07/24 Lea Fernando [address] [facility] [address] [place] [address] Surveyor'S Assistant Endocrinology 08/29/24 Rachel Ray, ONSITE HEALTH COACH [address] [facility] [address] [place] [address] Nurse Practitioner Gastroenterology 09/24/24 Tamera Isabel LPN VALUE-BASED TRANSFORMATION PROGRAM Licensed Practical Nurse 05/29/25 documented as of this encounter
--- OUTSIDE RECORDS SUMMARY | 2025-06-23 17:45 | XMS_ITS | Encounter Summary ---
Author Organization Healthcare Address [address] [place] [address] Care Team Providers Care Livestock Yard Attendant Name Role Phone Lea Fernando Unavailable [phone] Rachel Ray BIOLOGICAL PLANT OPERATOR Unavailable [phone] Alvarez Zimmer MD Primary Care Provider [phone] Tamera Isabel LPN Unavailable Unavailabl e Encounter Details Date Type Department Care Team (Late st Contact Info) Description 06/17/2025 [facility]phone [facility] [address] [place] [address] Deysi Antonio MD [address] [facility] [address] [place] [address] Social History Tobacco Use Types [...] How often do you attend [facility] or worship services? Patient unable to [...] any time in the past 12 m [facility], were you homeless or living [...] How often do you attend chur or worship services? Never 05/29/2025 Do you [...] occasion? Never 06/05/2025 [facility] - Occupational Stress Questionnaire Answer Date [...] any time in the past 12 m [facility], were you homeless or living [...] drink first t kennedy in the morning (EYE-ROD GREASER) to steady your nerves or to get [...] encounter Miscellaneous Notes * Telephone Encounter - Melissa Boston RN - 06/17/2025 11:25 AM EDT Returned pt's call regarding having some low blood sugars. Patient reports that she has been havingsome low blood sugars in the evening and she is worried that she maybe taking too much Lantus. Looked at pt Dexcom Report (in media). Patient currently is taking 52 units of Lantus daily, and [id number] units for regular meals, and 12 units for smaller meals and snacks plus 4:50>150. Inquired asto how she is taking her mealtime insulin, if she is taking it before she eats. She reports that for the most part she takes it before, however, there have been a few times where she takes it after she eats. She also reports that at times when she does not feel good she doesn't eat, however, she isstill taking Novolog 24 units or 12 units before her meals. I asked if she was still using her corre ction scale, and she reports that she is. I advised that if she is not feeling well and she skips ameal to only use her correction scale at meal times if her BG >150 at least 3-4 hours apart. Also advised that if she does eat to take her insulin 10-15 minutes before she eats, and not after to prevent lows. She was still concerned about her Lantus, therefore, advised to decrease her Lantus from 52 units to 48 units daily, and advised to call us back on Tuesday if she is waking up higher than 150. Informed her that we do not want her waking up high and if so we may have to adjust her Lantus back up some. She verbalized understanding and no other concerns voiced. * Telephone Encounter - Gregoria Escalantekota Garcia - 06/17/2025 10:42 AM EDT Clinical Concern/Question Reason for Call: Needing to speak w/nurse about decreased blood sugar levels, especially at night? Best contact number: [phone] Optimal time of day to reach caller: ANYTIME Additional comments/information from caller: None Note: Please do not reply to this message. Follow-up communication and further actions as a result of this message need to be communicated with the patient directly, if the patient is not active onMyChart. If the patient is active on MyChart, they will receive notification of the communication/outcome via MyChart. documented in this encounter Plan of Treatment Upcoming Encounters Date Type Department Care Team ([facility] Contact Info) Description 06/27/2025 9:30 AM EDT Appointment [facility] Interventional Radiology [address] [place] [address] 06/27/2025 10:30 AM EDT Appointment [facility] Inter[facility] Radiology [address] [place] [address] 07/04/2025 10:30 AM EDT Appointment [facility] Inter[facility] Radiology [address] [place] [address] 07/04/2025 11:30 AM EDT Appointment [facility] Inter[facility] Radiology [address] [place] [address] 07/09/2025 2:40 PM EDT Office Visit [facility] Bone & Mineral Metabolism [address] [facility], [address] [place] [address] Ar Dominique MD [address] [facility] [address] [place] [address] 07/11/2025 10:30 AM EDT Appointment [facility] Radiology [address] [place] [address] 07/11/2025 11:30 AM EDT Appointment [facility]iology [address] [place] [address] 07/18/2025 10:30 AM EDT Appointment [facility]iology [address] [place] [address] 07/18/2025 11:30 AM EDT Appointment [facility] Inter[facility] Radiology [address] [place] [address] 07/25/2025 10:30 AM EDT Appointment [facility] Radiology [address] [place] [address] 07/25/2025 11:30 AM EDT Appointment [facility] Inter[facility] Radiology [address] [place] [address] 07/31/2025 9:00 AM EDT Office Visit [facility] [address] [place] [address] Alvarez Zimmer MD [address] [place] [address] 08/20/2025 9:30 AM EDT Clinical Support [facility] [place] [address] [place] [address] 08/20/2025 10:30 AM EDT Social Work [facility] [place] [address] [place] [address] Deysi Ortega [place], [place] [id number] 08/20/2025 11:00 AM EDT Office Visit [facility] [place] [address] [place] [address] Jude Duque MD [address] [place] [address] 10/30/2025 1:20 PM EST Office Visit [facility] Endocrinology [address] [place] [address] Sharif Moreno, DPM [address] [place] [address] documented as of this encounter [...] documented as of this encounter Care Teams Livestock Yard Attendant Relationship Specialty Start Date End Date Alvarez Zimmer MD [address] [place] [address] PCP - General Family Medicine 12/07/24 Lea Fernando [address] [place] [address] Associate Professor Of Biblical Studies Endocrinology 08/29/24 Rachel Ray APRN [address] [facility] [address] [place] [address] Nurse Practitioner Gastroenterology 09/24/24 Tamera Isabel LPN VALUE-BASED TRANSFORMATION PROGRAM Licensed Practical Nurse 05/29/25 documented as of this encounter
--- OUTSIDE RECORDS SUMMARY | 2025-06-23 17:45 | XMS_ITS | Encounter Summary ---
Author Organization [employer] ([place], [place], [place], [place]) Address [address] [facility] [place] [place] [address] Care Team Providers Care Hatchery Employee Name Role Phone Taina Lyles VOCATIONAL SCHOOL TEACHER Primary Care Provider [phone] Encounter Details Date Type Department Care Team (Late st Contact Info) Description 07/02/2021 Transcribed Document [facility] [place] [address] ProviderWilliam MD [address] [place], [place] [id number] Social History Tobacco Use Types Packs/Day Years Used Date Smoking Tobacco: Never Assessed Comments Unknown Sex and Gender Information Value Date Recorded Sex Assigned at Not on file Legal Sex Female 12:21 PM CDT Gender Identity Not on file Sexual Orientation Not on file documented as of this encounter Miscellaneous Notes * Cerner Conversion Note - William Reyes MD - 07/02/2021 10:08 AM CDT Patient: MONIKA ZIMMER Age: 60 years Sex: Female : 1960 Associated Diagnoses: None Author: DANIEL SNOW PA-C Chief Complaint Chest pain History of Present Illness Chest pain-acute onset severe episodes of sharp chest pain nonradiating not associated with any other symptoms resolved spontaneously 60-year-old white female morbidly obese with diabetes, GERD, sleep apnea, and anxiety depression. Patient presented to the emergency room last night with episodes of sharp chest pain as described above. This was in the setting of severe nausea and a glucose of 300. Troponin showed sinus tach with PVCs and initial troponin 0 0.13. She was admitted for observation overnight. She is still boarding in the ER. This morning she feels back to her baseline. Troponins are unchanged. She has no further chest pain, PVCs have resolved and she would like to DC home. Of note patient had normal left heart cath 2016. She also had a cardiac PET scan which was low risk SDS = 0 April of this year. Normal echo May of this year. Of note her history is very inconsistent here, reportedly initially presenting with upper respiratory infection symptoms in the ER then later her primary symptom was nausea than the chest pain. Her story seems to change with each provider. She is on trazodone, bupropion, venlafaxine. She is afebrile, normal white count, Covid test negative, chest x-ray clear, CTA chest picked up possible hepatosplenomegaly and she has mild transaminitis on lab work. Review of Systems Constitutional: No fever, No chills, No weakness. Eye: No visual disturbances. Ear/Nose/Mouth/Throat Respiratory: No shortness of breath, No cough. Cardiovascular: No chest pain, No palpitations, No peripheral edema. Gastrointestinal: Nausea, Abdominal pain. Genitourinary: No hematuria. Hematology/Lymphatics: No bruising tendency, No bleeding tendency. Endocrine: No cold intolerance, No heat intolerance. Integumentary: No rash, No skin lesion. Neurologic: Alert and oriented X4. Psychiatric Health Status Allergies: Allergic Reactions (Selected) No Known Allergies, No qualifying data available Current medications: (Selected) Inpatient Medications Ordered Arixtra: 2.5 mg, SubCutaneous, Daily Brilinta: 90 mg, Oral, BID Colace: 100 mg, Oral, BID Core.125 mg, Oral, BID Diovan: 40 mg, Oral, Daily Lipitor: 80 mg, Oral, At Bedtime Normal Saline 1,000 mL: 10 mL/Hr, IntraVENous Normal Saline Flush: 10 mL, IV Push, Q12H Normal Saline Flush: 10 mL, IV Push, See Comment, PRN: IV Use Tylenol: 650 mg, Oral, Q4H, PRN: Pain (Mild 1-3) Zofran: 4 mg, IV Push, Q6H, PRN: Nausea acetaminophen-HYDROcodone 325 mg-5 mg oral tablet: 1 Tab, Oral, Q4H, PRN: Pain (Moderate 4-6) aspirin: 81 mg, Oral, Daily morphine: 2 mg, IV Push, Q5Min, PRN: Pain (Severe 7-10) potassium chloride 20 mEq oral tablet, extended release: 40 mEq, 2 Tab, Oral, On-CALL, PRN: Other (See Comment) Prescriptions Prescribed isosorbide mononitrate 60 mg oral tablet, extended release: 1 Tab, Oral, QAM, for 30 Day(s), 30 Tab, 0 Refill(s) Documented Medications Documented Calcium 600+D Plus Minerals: 2 tabs, Oral, Daily, 0 Refill(s) Effexor XR 150 mg oral capsule, extended release: 1 Cap, Oral, Daily, 30 Cap, 0 Refill(s) Fish Oil 1000 mg oral capsule: 2 tabs, Oral, Daily, 0 Refill(s) HumuLIN R (Concentrated) 500 units/mL human recombinant subcutaneous solution: See Instructions, 12 Units SubCutaneous am & 12 units pm, 0 Refill(s) Jardiance 10 mg oral tablet: 0 Refill(s) Ubrelvy 50 mg oral tablet: TAKE 1 TABLET BY MOUTH TWO TIMES A DAY NEEDED FOR MIGRAINE FOR UP TO 2 DOSES. WAIT 2 HOURS BEFORE 2ND DOSE Ventolin HFA 90 mcg/inh inhalation aerosol: 2 puffs, Inhalation, Q4H, PRN: Shortness of Breath, 0 Refill(s) Zetia 10 mg oral tablet: Tab, Oral, Daily, 0 Refill(s) aspirin 81 mg oral tablet: 1 Tab, Oral, Daily, 30 Tab, 0 Refill(s) buPROPion 100 mg/12 hours (SR) oral tablet, extended release: 1 Tab, Oral, Daily, 0 Refill(s) cetirizine 10 mg oral tablet: 1 Tab, Oral, Daily, 30 Tab, 0 Refill(s) magnesium oxide 500 mg oral tablet: 1 Tab, Oral, TID, 0 Refill(s) metFORMIN 1000 mg oral tablet: Oral, BID, 0 Refill(s) multivitamin: Oral, Daily, 0 Refill(s) rosuvastatin 20 mg oral tablet: TAKE 1 TABLET BY MOUTH AT BEDTIME traZODone 50 mg oral tablet: 2 Tab, Oral, At Bedtime, 0 Refill(s) triamcinolone 55 mcg/inh nasal spray: 2 sprays, Nostrils Both, Daily, 0 Refill(s) venlafaxine 75 mg oral tablet: Tab, Oral, At Bedtime, 0 Refill(s), Medications (15) Active Scheduled: (8) #NaCl 0.9% *FLUSH* inj 10 mL 10 mL, IV Push, Q12H aspirin EC 81 mg tab 81 mg 1 Tab, Oral, Daily atorvastatin 80 mg Tab 80 mg 1 Tab, Oral, At Bedtime carvedilol 3.125 mg tab 3.125 mg 1 Tab, Oral, BID docusate sodium 100 mg cap 100 mg 1 Cap, Oral, BID fondaparinux 2.5 mg/0.5 ml inj 2.5 mg 0.5 mL, SubCutaneous, Daily ticagrelor 90 mg tab 90 mg 1 Tab, Oral, BID valsartan 40 mg tab 40 mg 1 Tab, Oral, Daily Continuous: (1) NaCl 0.9% 1,000 mL 1,000 mL, IntraVENous, 10 mL/Hr PRN: (6) #NaCl 0.9% *FLUSH* inj 10 mL 10 mL, IV Push, See Comment acetaminophen 325 mg tab 650 mg 2 Tab, Oral, Q4H acetaminophen/HYDROcodone 325/5 mg tab 1 Tab, Oral, Q4H morphine 2 mg/1 ml inj 2 mg 1 mL, IV Push, Q5Min ondansetron 4 mg/2 mL inj 4 mg 2 mL, IV Push, Q6H potassium chloride CR 20 mEq tab 40 mEq 2 Tab, Oral, On-CALL Problem list: All Problems Anxiety / SNOMED CT 0929914132 / Confirmed Arthritis / SNOMED CT 0105703 / Confirmed ADD (attention deficit disorder) / SNOMED CT 5412112364 / Confirmed right carpal tunnel / SNOMED CT 94681498 / Confirmed Chronic depression / SNOMED CT 427774141 / Confirmed Diabetes / SNOMED CT 870844073 / Confirmed GERD (gastroesophageal reflux disease) / SNOMED CT 080235532 / Confirmed Stress incontinence / SNOMED CT 675403211 / Confirmed History of recurrent UTIs / SNOMED CT 002627490 / Confirmed H/O syncope / SNOMED CT 5326746576 / Confirmed Hyperlipidemia / SNOMED CT 77436627 / Confirmed bilateral knee pain / SNOMED CT 18005010 / Confirmed Right tennis elbow / SNOMED CT 1742105520 / Confirmed recent diagnosis Renal insufficiency / SNOMED CT 9770520727 / Confirmed RLS (restless legs syndrome) / SNOMED CT 57594772 / Confirmed sleep apnea with Cpap / SNOMED CT 675226032 / Confirmed, Active Problems (16) ADD (attention deficit disorder) Anxiety Arthritis bilateral knee pain Chronic depression Diabetes GERD (gastroesophageal reflux disease) H/O syncope History of recurrent UTIs Hyperlipidemia Renal insufficiency right carpal tunnel Right tennis elbow RLS (restless legs syndrome) sleep apnea with Cpap Stress incontinence Histories Past Medical History: No active or resolved past medical history items have been selected or recorded. Family History: No family history items have been selected or recorded. Procedure history: choley. right breast biopsies (benign). hysterectomy. right foot surgery. carpal rupal right hand. Social History Social & Psychosocial Habits Alcohol 01/11/2017 Alcohol Use History, Social Habits Yes Alcohol Use Frequency Not used in over 3 months Tobacco 01/11/2017 Smoking Status Never smoker . Physical Examination VS/Measurements Measurements from flowsheet : Measurements 07/01/2021 12:30 EDT Height Source Stated Height Entry Format [place] Height/Length, FAROESE (ft) 5 ft Height/Length FAROESE 6 Inch CLINICALHEIGHT 167.64 cm [place] Body Weight 58.88 kg Weight Source, ED Standing scale Weight Entry Format [place] Weight [place] lb 203 lb CLINICALWEIGHT 92.27 kg Body Surface Area (BSA) 2.01 m2 Body Mass Index 32.8 kg/m2 HI , Vitals Signs (last 24 hrs) Last Charted Minimum Maximum Temp 99 (JUL 01 12:30) 99 (JUL 01 12:30) 99 (JUL 01 12:30) Mon HR 81 (JUL 02 09:56) 69 (JUL 02 07:00) 118 (JUL 01 17:00) Periph HR 113 (JUL 01 12:30) 113 (JUL 01 12:30) 113 (JUL 01 12:30) Resp Rate H 30 (JUL 02 09:56) L 11 (JUL 01 13:30) H 30 (JUL 01 16:00) SBP 98 (JUL 02 08:14) L 74 (JUL 02 08:00) H 142 (JUL 01 13:00) DBP L 55 (JUL 02 08:14) L 41 (JUL 02 08:00) 74 (JUL 02 02:30) MAP 53 (JUL 02 08:00) 53 (JUL 02 08:00) 100 (JUL 01 13:00) SpO2 98 (JUL 02 09:56) L 92 (JUL 01 15:00) 100 (JUL 01 13:30) General: Alert and oriented, No acute distress, obese. Eye: Pupils are equal, round and reactive to light. HENT: Normocephalic. Neck: No carotid bruit, No jugular venous distention. Respiratory: Lungs are clear to auscultation, Respirations are non-labored. Cardiovascular: Normal rate, Regular rhythm, No murmur, No gallop, Good pulses equal in all extremities, Normal peripheral perfusion, No edema. Gastrointestinal: Non-tender, Normal bowel sounds. Genitourinary: No bladder tenderness. Musculoskeletal: No deformity. Integumentary: No rash, No rashes or ulcerations visualized. Neurologic: No neurologic deficits appreciated. Cognition and Speech: Speech clear and coherent. Psychiatric: Appropriate mood & affect. Review / Management Results review: Labs (Last four charted values) WBC 8.0 (JUL 01) HB 13.2 (JUL 01) HCT 40.6 (JUL 01) Plt L 123 (JUL 01) Na L 135 (JUL 02) L 134 (JUL 01) K 3.8 (JUL 02) 4.2 (JUL 01) Cl 103 (JUL 02) L 99 (JUL 01) CO2 22 (JUL 02) 25 (JUL 01) BUN 14 (JUL 02) 12 (JUL 01) Cr 0.97 (JUL 02) H 1.06 (JUL 01) Glu R H 391 (JUL 02) H 314 (JUL 01) Ca L 8.2 (JUL 02) 8.8 (JUL 01) AST H 79 (JUL 01) ALT 47 (JUL 01) ALK P H 150 (JUL 01) T Bili 1.2 (JUL 01) PTN 8.2 (JUL 01) ALB L 2.9 (JUL 01) Troponin H 0.114 (JUL 01) H 0.131 (JUL 01) . Impression and Plan Chest pain unspecified -Not an anginal description, no ischemia on EKG, recent cardiac PET scan and echocardiogram were both normal -She can be discharged home with aspirin, statin, long-acting nitrates. She is not candidate for beta-bam due to low blood pressure Transaminitis -Mild, with questionable hepatosplenomegaly on CT chest -Likely Potts -Continue to trend outpatient Diabetes mellitus -Glucose greater than 300 upon arrival, patient had drank orange juice and eaten Archer's breakfast -Continue home meds, defer diabetes management changes to her primary care physician Anxiety depression -Continue home meds Obstructive sleep apnea -Encourage CPAP use Morbid obesity -Her BMI is not terribly high but she has excess body fat and is in general poor body habitus -Recommend diet and exercise. She is limited physically with a walker Chronic venous insufficiency -Patient was scheduled for vein ablation in our office today, she is still welcome to come over after discharge from the ER Patient symptoms have resolved, she is requesting discharge home. Case discussed with Dr. Christensen who agrees she is appropriate for discharge. we will follow up with her closely outpatient. documented in this encounter Plan of Treatment Not on file documented as of this encounter Visit Diagnoses Not on filedocumented in this encounter Care Teams Hatchery Employee Relationship Specialty Start Date End Date Taina Lyles, VOCATIONAL SCHOOL TEACHER [address] [place] [address] PCP - General Nurse Practitioner 06/15/23 documented as of this encounter
--- OUTSIDE RECORDS SUMMARY | 2025-06-23 17:45 | XMS_ITS | Encounter Summary ---
Author Organization Healthcare Address [address] [place] [address] Care Team Providers Care Animal Control Officer Name Role Phone Lea Fernando Unavailable [phone] Rachel Ray ABLE BODIED SEAMAN Unavailable [phone] Alvarez Zimmer MD Primary Care Provider [phone] Encounter Details Date Type Department Care Team (Latest Contact Info) Description 05/22/2025 Travel Social History Tobacco Use Types Packs/Day [...] often do you attend chur ch or jew services? Patient unable to answer 01/10/2025 Do you belong to any clubs o r organizations such as scientology groups, unions, fraternal or athletic groups, or [...] drink first t kennedy in the morning (EYE-HEEL CEMENTER) to steady your nerves or to get [...] Upcoming Encounters Date Type Department Care Team ([facility] st Contact Info) Description 06/27/2025 9:30 AM EDT Appointment [facility] [address] [place] [address] 06/27/2025 10:30 AM EDT Appointment [facility] [address] [place] [address] 07/04/2025 10:30 AM EDT Appointment [facility] [address] [place] [address] 07/04/2025 11:30 AM EDT Appointment [facility] [address] [place] [address] 07/09/2025 2:40 PM EDT Office Visit [facility] [address], [address] [place] [address] Ar Dominique MD [address] [place] [address] 07/11/2025 10:30 AM EDT Appointment [facility] [address] [place] [address] 07/11/2025 11:30 AM EDT Appointment [facility] [address] [place] [address] 07/18/2025 10:30 AM EDT Appointment [facility] [address] [place] [address] 07/18/2025 11:30 AM EDT Appointment [facility] [address] [place] [address] 07/25/2025 10:30 AM EDT Appointment [facility] [address] [place] [address] 07/25/2025 11:30 AM EDT Appointment [facility] [address] [place] [address] 07/31/2025 9:00 AM EDT Office Visit [facility] [address] [place] [address] Alvarez Zimmer MD [address] [place] [address] 08/20/2025 9:30 AM EDT Clinical Support [facility] [place] [address] [place] [address] 08/20/2025 10:30 AM EDT Social Work [facility] [place] [address] [place] [address] Deysi Orte[address] [place], [place] [id number] 08/20/2025 11:00 AM EDT Office Visit [facility] [place] [address] [place] [address] Jude Duque MD [address] [place] [address] 10/30/2025 1:20 PM EST Office Visit [facility] Endocrinology [address] [place] [phone] Sharif Moreno, DPNicole [address] [place] [address] documented as of this encounter [...] documented as of this encounter Care Teams Animal Control Officer Relationship Specialty Start Date End Date Alvarez Zimmer MD [address] [place] [address] PCP - General Family Medicine 12/07/24 Lea Fernando [address] [place] [address] [facility] Endocrinology 08/29/24 Rachel Ray, ABLE BODIED SEAMAN [address] [place] [address] Nurse Practitioner Gastroenterology 09/24/24 documented as of this encounter
--- OUTSIDE RECORDS SUMMARY | 2025-06-23 17:45 | XMS_ITS | Encounter Summary ---
Author Organization [facility] Address [address] [place] [address] Care Team Providers Care Corn Popper Name Role Phone LenoreanLea Unavailable [phone] Rachel Ray CITY MANAGER Unavailable [phone] Alvarez Zimmer MD Primary Care Provider [phone] Tamera Isabel LPN Unavailable Unavailabl e Reason for Referral * Hospice (Routine) - Authorized Specialty Diagnoses / Procedures Referred By Contac t Referred To Contact Hospice Services Diagnoses 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) (CMS/HCC) Alvarez Zimmer MD [address] [place] [phone] Phone: tel: fax: Referral ID Status Reason Start Date Expiration Date Visits Requested Visits Authorized [id number] Authorized Specialty Services Required 06/14/2025 12/14/2026 [id number] Encounter Details Date Type Department Care Team (Late st Contact Info) Description 06/14/2025 Orders Only [facility] [address] [place] [address] [place] [address] 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) (CMS/HCC) (Primary Dx) Social History Tobacco Use Types [...] How often do you attend chur or quaker services? Patient unable to answer 01/10/2025 Do you belong to any clubs o r organizations such as druze groups, unions, fraternal or athletic groups, or [...] How often do you attend chur or quaker services? Never 05/29/2025 Do you belong to any clubs o r organizations such as druze groups, unions, fraternal or athletic groups, or [...] more drinks on one occasion? Never 06/05/2025 [facility] Answer Date Recorded [...] Have you had a drink first t kenneyd in the morning (EYE-CANCELING AND CUTTING CONTROL CLERK) to steady your nerves or to get [...] Upcoming Encounters Date Type Department Care Team ([facility] Contact Info) Description 06/27/2025 9:30 AM EDT Appointment [facility] [address] [place] [address] 06/27/2025 10:30 AM EDT Appointment [facility] [address] [place] [address] 07/04/2025 10:30 AM EDT Appointment [facility] [address] [place] [address] 07/04/2025 11:30 AM EDT Appointment [facility] [address] [place] [address] 07/09/2025 2:40 PM EDT Office Visit [facility] [address], [address] [place] [address] Ar Dominique MD [address] [place] [address] 07/11/2025 10:30 AM EDT Appointment [facility] [address] [place] [address] 07/11/2025 11:30 AM EDT Appointment [facility] [address] [place] [address] 07/18/2025 10:30 AM EDT Appointment [facility] [address] [place] [address] 07/18/2025 11:30 AM EDT Appointment [facility] [address] [place] [address] 07/25/2025 10:30 AM EDT Appointment [facility] [address] [place] [address] 07/25/2025 11:30 AM EDT Appointment [facility] [address] [place] [address] 07/31/2025 9:00 AM EDT Office Visit [facility] [address] [place] [address] Alvarez Zimmer MD [address] [place] [address] 08/20/2025 9:30 AM EDT Clinical Support [facility] [address] [place] [address] 08/20/2025 10:30 AM EDT Social Work [facility] [place] [address] [place] [address] [place] [address] 08/20/2025 11:00 AM EDT Office Visit [place] [facility] [address] [place] [address] Jude Duque MD [address] [place] [address] 10/30/2025 1:20 PM EST Office Visit [facility] Endocrinology [address] [place] [address] Sharif Moreno, DPNicole [address] [place] [address] Scheduled Referrals Name Type Priority Associated Diagnoses Order Schedule Ambulatory referral to Hospice Outpatient Referral Routine 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) (CMS/HCC) 1 Occurrences starting 06/14/2025 until 12/16/2026 documented as of this encounter Visit Diagnoses Diagnosis 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) (CMS/HCC)- Primary documented in this encounter Additional Health Concerns Assessment Noted Time PHQ-9 Depression Total Score: 6 06/11/20 10:59 AM EDT A fall risk assessment has been complete d for the patient 06/11/2025 10:59 AM EDT A Body Mass Index follow-up plan has been documented for the patient 06/13/2025 2:00 PM EDT documented as of this encounter Care Teams Corn Popper Relationship Specialty Start Date End Date Alvarez Zimmer MD [address] [place] [phone] PCP - General Family Medicine 12/07/24 Lea Fernando [address] [place] [address] Rice Drier Operator Endocrinology 08/29/24 Rachel Ray, CITY MANAGER [address] [place] [address] Nurse Practitioner Gastroenterology 09/24/24 Tamera Isabel LPN VALUE-BASED TRANSFORMATION PROGRAM Licensed Practical Nurse 05/29/25 documented as of this encounter
--- OUTSIDE RECORDS SUMMARY | 2025-06-23 17:45 | XMS_ITS | Encounter Summary ---
Author Organization [employer] ([place], [place], [place], [place]) Address [address] [place] [address] Care Team Providers Care Xerox Machine Operator Name Role Phone Taina Lyles ADRI Primary Care Provider Encounter Details Date Type Department Care Team (Late st Contact Info) Description 07/02/2021 Transcribed Document [facility] [place] [address] [place] [address] ProviderWilliam MD [address] [place], [place] [address] Social History Tobacco Use Types Packs/Day Years Used Date Smoking Tobacco: Never Assessed Comments Unknown Sex and Gender Information Value Date Recorded Sex Assigned at Not on file Legal Sex Female 12:21 PM CDT Gender Identity Not on file Sexual Orientation Not on file documented as of this encounter Miscellaneous Notes * Franca Conversion Note - William Reyes MD - 07/02/2021 2:30 AM CDT ED Event Note Entered On: 07/02/2021 2:32 EDT Performed On: 07/02/2021 2:30 EDT by Janice Cosme RN ED Event Note ED Event Date/Time : 07/02/2021 0:20 EDT ED Description of Event : Pt states she is feeling like every time she falls asleep, she is not breathing and she wakes up short of breath. RN offered oxygen for comfort and patient states she would feel more comfortable with some oxygen on. Pt placed on 2LNC for comfort while she sleeps. Janice Cosme RN - 07/02/2021 2:30 EDT Electronically signed by [facility] Conversion Buyer Internship Cerner at 03/07/2023 9:50 AM CDT documented in this encounter Plan of Treatment Not on file documented as of this encounter Visit Diagnoses Not on filedocumented in this encounter Care Teams Xerox Machine Operator Relationship Specialty Start Date End Date Taina Lyles, ECONOMETRICS PROFESSOR [address] [place] [phone] PCP - General Nurse Practitioner 06/15/23 documented as of this encounter
--- OUTSIDE RECORDS SUMMARY | 2025-06-23 17:45 | XMS_ITS | Encounter Summary ---
Author Organization Healthcare Address [address] [place] [address] Care Team Providers Care Sports Medicine Masseur Name Role Phone Lea Fernando Unavailable [phone] Rachel Ray SOAPING DEPARTMENT SUPERVISOR Unavailable [phone] Alvarez Zimmer MD Primary Care Provider [phone] Tamera Isabel LPN Unavailable Unavailabl e Encounter Details Date Type Department Care Team (Latest Contact Info) Description 06/13/2025 Travel Social History Tobacco Use Types Packs/Day [...] week 01/10/2025 How often do you attend [facility] or confucianism services? Patient unable to answer 01/10/2025 Do [...] time in the past 12 m [facility], were you homeless or living in a [...] often do you attend chur ch or confucianism services? Never 05/29/2025 Do you belong to [...] more drinks on one occasion? Never 06/05/20[address] [facility] - [facility]ational Stress [...] time in the past 12 m [facility], were you homeless or living in a [...] drink first t kennedy in the morning (EYE-EDITOR MAGAZINE) to steady your nerves or to get [...] Appointment [facility] Interventional Radiology [address] [place] [address] 06/27/2025 10:30 AM EDT Appointment [facility] Interventional Radiology [address] [place] [address] 07/04/2025 10:30 AM EDT Appointment [facility] Interventional Radiology [address] [place] [address] 07/04/2025 11:30 AM EDT Appointment [facility] Interventional Radiology [address] [place] [address] 07/09/2025 2:40 PM EDT Office Visit [facility] Mineral Metabolism [address], [address] [place] [address] Ar Dominique MD [address] [place] [address] 07/11/2025 10:30 AM EDT Appointment [facility] Interventional Radiology [address] [place] [address] 07/11/2025 11:30 AM EDT Appointment [facility] Interventional Radiology [address] [place] [address] 07/18/2025 10:30 AM EDT Appointment [facility] Interventional Radiology [address] [place] [address] 07/18/2025 11:30 AM EDT Appointment [facility] Interventional Radiology [address] [place] [address] 07/25/2025 10:30 AM EDT Appointment [facility] Interventional Radiology [address] [place] [address] 07/25/2025 11:30 AM EDT Appointment [facility] Interventional Radiology [address] [place] [address] 07/31/2025 9:00 AM EDT Office Visit [address] [address] Alvarez Zimmer MD [address] [place] [address] 08/20/2025 9:30 AM EDT Clinical Support [facility] [place] [address] [place] [address] 08/20/2025 10:[address] [facility] [place] [address] [place] [address] [place] [address] 08/20/2025 11:00 AM EDT Office Visit [facility] [place] [address] [place] [address] Jude Duque MD [address] [place] [address] 10/30/2025 1:20 PM EST Office Visit [facility] Endocrinology [address] [place] [address] Sharif Moreno, ROSY [address] [place] [address] documented as of this encounter [...] documented as of this encounter Care Teams Sports Medicine Masseur Relationship Specialty Start Date End Date Alvarez Zimmer MD [address] [place] [phone] PCP - General Family Medicine 12/07/24 Lea Fernando [address] [facility] [address] [place] [address] Lead [facility] Endocrinology 08/29/24 Rachel Ray APRN [address] [facility] [address] [place] [phone] Nurse Practitioner Gastroenterology 09/24/24 Tamera Isabel LPN VALUE-BASED TRANSFORMATION PROGRAM Licensed Practical Nurse 05/29/25 documented as of this encounter
--- OUTSIDE RECORDS SUMMARY | 2025-06-23 17:45 | XMS_ITS | Encounter Summary ---
Author Organization [facility] Address [address] [place] [address] Care Team Providers Care Printing Press Machinist Name Role Phone Lea Fernando Unavailable [phone] Rachel Ray APPLICATIONS COORDINATOR Unavailable [phone] Alvarez Zimmer MD Primary Care Provider [phone] Tamera Isabel LPN Unavailable Unavailabl e Reason for Referral * Imaging (Routine) - Authorized Specialty Diagnoses / Procedures Referred By Contac t Referred To Contact Radiology Diagnoses Other ascites Alcoholic cirrhosis of liver with ascites (CMS/HCC) Procedures US Guided Abdominal Paracentesis Marianna [place] APRN [address] [place] [address] Phone: tel: fax: Referral ID Status Reason Start Date Expiration Date V isits Requested Visits Authorized [id number] Authorized 06/14/2025 12/14/2026 1 1 * Imaging (Routine) - Authorized Specialty Diagnoses / Procedures Referred By Contac t Referred To Contact Radiology Diagnoses Pleural effusion Shortness of breath Procedures US Guided Thoracentesis Marianna [place] APRN [address] [place] [address] Phone: tel: fax: Referral ID Status Reason Start Date Expiration Date V isits Requested Visits Authorized [id number] Authorized 06/14/2025 12/14/2026 1 1 Encounter Details Date Type Department Care Team (Late st Contact Info) Description 06/14/2025 Orders Only [facility] Interventional Radiology [address] [place] [address] Marianna [place] APRN [address] [place] [phone] Other ascites (Primary Dx); Pleural effusion; Shortness of breath; Alcoholic cirrhosis of liver with ascites (CMS/HCC) Social History Tobacco Use Types Packs/Day [...] 01/10/2025 How often do you attend [facility] or pentecostal services? Patient unable to answer [...] week 05/29/2025 How often do you attend [facility] or pentecostal services? Never 05/29/2025 Do you belong to [...] more drinks on one occasion? Never 06/05/2025 [facility] [...] drink first t kennedy in the morning (EYE-RICE FARMWORKER) to steady your nerves or to get rid of a hangover? 0 10/22/2024 CAGE Questionnaire Score 0 024 Utilities Answer Date Recorded In the past 12 months has th [employer], gas, oil, or water company threatened [...] Appointment [facility] Interventional Radiology [address] [place] [address] 06/27/2025 10:30 AM EDT Appointment [facility] Interventional Radiology [address] [place] [address] 07/04/2025 10:30 AM EDT Appointment [facility] Interventional Radiology [address] [place] [address] 07/04/2025 11:30 AM EDT Appointment [facility] Interventional Radiology [address] [place] [address] 07/09/2025 2:40 PM EDT Office Visit [facility] Bone & Mineral Metabolism [address] [facility], [address] [place] [address] Ar Dominique MD [address] [place] [address] 07/11/2025 10:30 AM EDT Appointment [facility] Interventional Radiology [address] [place] [address] 07/11/2025 11:30 AM EDT Appointment [facility] Interventional Radiology [address] [place] [address] 07/18/2025 10:30 AM EDT Appointment [facility] Interventional Radiology [address] [place] [address] 07/18/2025 11:30 AM EDT Appointment [facility] Interventional Radiology [address] [place] [address] 07/25/2025 10:30 AM EDT Appointment [facility] Interventional Radiology [address] [place] [address] 07/25/2025 11:30 AM EDT Appointment [facility] Interventional Radiology [address] [place] [address] 07/31/2025 9:00 AM EDT [facility] [address] [place] [address] Alvarez Zimmer MD [address] [place] [address] 08/20/2025 9:30 AM EDT Clinical Support [facility] [place] [address] [place] [address] 08/20/2025 10:30 AM EDT Social Work [facility] [place] [address] [place] [address] Deysi Ortega [place], [place] [phone] 08/20/2025 11:00 AM EDT Office Visit [facility] [address] [place] [address] Jude Duque MD [address] [place] [address] 10/30/2025 1:20 PM EST Office Visit [facility] Endocrinology [address] [place] [address] Sharif Moreno, ROSY [address] [place] [address] Scheduled Orders Name Type Priority Associated Diagnoses Orde r Schedule US Guided Thoracentesis Imaging Routine Pleural effusion Shortness of breath Expected: 07/04/2025 (Approximate), Expires: 12/16/2026 US Guided Abdominal Paracentesis Imaging Routine Other ascites Alcoholic cirrhosis of liver with ascites (CMS/HCC) Expected: 07/04/2025 (Approximate), Expires: 12/16/2026 documented as of this encounter Visit Diagnoses Diagnosis Other ascites- Primary Pleural effusion Unspecified pleural effusion Shortness of breath Alcoholic cirrhosis of liver with ascites (CMS/HCC) documented in this encounter Additional Health Concerns Assessment Noted Time PHQ-9 Depression Total Score: 6 06/11/20 10:59 AM EDT A fall risk assessment has been complete d for the patient 06/11/2025 10:59 AM EDT A Body Mass Index follow-up plan has been documented for the patient 06/13/2025 2:00 PM EDT documented as of this encounter Care Teams Printing Press Machinist Relationship Specialty Start Date End Date Alvarez Zimmer MD [address] [place] [phone] PCP - General Family Medicine 12/07/24 Lea Fernando [address] [facility] [address] [place] [address] Cancer Genetics Assistant Endocrinology 08/29/24 Rachel Ray APRN [address] [facility] [address] [place] [address] Nurse Practitioner Gastroenterology 09/24/24 Tamera Isabel LPN VALUE-BASED TRANSFORMATION PROGRAM Licensed Practical Nurse 05/29/25 documented as of this encounter
--- OUTSIDE RECORDS SUMMARY | 2025-06-23 17:46 | XMS_ITS | Encounter Summary ---
Author Organization Healthcare Address [address] [place] [address] Care Team Providers Care Clinical Phlebotomist Name Role Phone Lea Fernando Unavailable [phone] Rachel Ray EDITOR IN CHIEF NEWSPAPER Unavailable [phone] Alvarez Zimmer MD Primary Care Provider [phone] Encounter Details Date Type Department Care Team (Latest Contact Info) Description 05/28/2025 Travel Social History Tobacco Use Types Packs/Day [...] any clubs o r organizations such as sikhism groups, unions, fraternal or athletic groups, or [...] any clubs o r organizations such as sikhism groups, unions, fraternal or athletic groups, or [...] more drinks on one occasion? Never 05/29/2025 [facility] ional Health - [...] drink first t kennedy in the morning (EYE-HEALTH SPA MANAGER) to steady your nerves or to [...] Appointment [facility] Interventional Radiology [address] [place] [address] 06/27/2025 10:30 AM EDT Appointment [facility] Interventional Radiology [address] [place] [address] 07/04/2025 10:30 AM EDT Appointment [facility] Interventional Radiology [address] [place] [address] 07/04/2025 11:30 AM EDT Appointment [facility] Interventional Radiology [address] [place] [address] 07/09/2025 2:40 PM EDT Office Visit [facility] Mineral Metabolism [address], [address] [place] [address] Ar Dominique MD [address] [place] [address] 07/11/2025 10:30 AM EDT Appointment [facility] Interventional Radiology [address] [place] [address] 07/11/2025 11:30 AM EDT Appointment [facility] Interventional Radiology [address] [place] [address] 07/18/2025 10:30 AM EDT Appointment [facility] Interventional Radiology [address] [place] [address] 07/18/2025 11:30 AM EDT Appointment [facility] Interventional Radiology [address] [place] [address] 07/25/2025 10:30 AM EDT Appointment [facility] Interventional Radiology [address] [place] [address] 07/25/2025 11:30 AM EDT Appointment [facility] Interventional Radiology [address] [place] [address] 07/31/2025 9:00 AM EDT Office Visit [address] [place] [address] Alvarez Zimmer MD [address] [place] [address] 08/20/2025 9:30 AM EDT Clinical Support [facility] [place] [address] [place] [address] 08/20/2025 10:30 AM EDT Social Work [facility] [place] [address] [place] [address] [place] [address] 08/20/2025 11:00 AM EDT Office Visit [facility] [place] [address] [place] [address] Jude Duque MD [address] [place] [address] 10/30/2025 1:20 PM EST Office Visit [facility] Endocrinology [address] [place] [address] Sharif Moreno, DPM [address] [facility] [address] [place] [address] documented as of this encounter [...] as of this encounter Care Teams Clinical Phlebotomist Relationship Specialty Start Date End Date [place] [address] PCP - General Family Medicine 12/07/24 Lea Fernando [address] [place] [address] Brim Raiser Endocrinology 08/29/24 Rachel Ray, ADRI [address] [place] [address] Nurse Practitioner Gastroenterology 09/24/24 documented as of this encounter
--- OUTSIDE RECORDS SUMMARY | 2025-06-23 17:46 | XMS_ITS | Encounter Summary ---
Author Organization Healthcare Address [address] [place] [address] Care Team Providers Care Director Of Labor And Delivery Name Role Phone Lea Fernando Unavailable [phone] Rachel Ray RENEWALS MANAGER Unavailable [phone] Alvarez Zimmer MD Primary Care Provider [phone] Tamera Isabel LPN Unavailable Unavailabl e Encounter Details Date Type Department Care Team (Late st Contact Info) Description 05/23/2025 Results Follow-Up [facility] [address] [place] [address] Wilma Arana, [facility] LIVER [id number] [address] [place] [address] Social History Tobacco Use Types Packs/Day Years [...] often do you attend chur ch or methodist services? Patient unable to answer 01/10/2025 Do [...] any time in the [facility] 12 m [facility] were [facility] or living in [...] How often do you attend chur or methodist services? Never 05/29/2025 Do you belong to [...] more drinks on one occasion? Never 06/05/2025 [facility] Occupational Stress Questionnaire Answer Date [...] any time in the past 12 m [facility], were you homeless or living in [...] drink first t kennedy in the morning (EYE-OFFSET PRESS ASSISTANT) to steady your nerves or to get rid of a hangover? 0 10/22/2024 CAGE Questionnaire Score 0 024 Utilities Answer Date Recorded In the past 12 months has th e [employer], gas, oil, or water company threatened to [...] days 06/11/2025 10:59 AM EDSuhail Doherty A Poor appetite or overeating Several days 06/11/2025 [...] as of this encounter Miscellaneous Notes * Result Encounter Note - Paola Dubon RN - 05/28/2025 9:01 AM EDT Called and spoke to patient. She states she told them to draw it on 05/23. They states they did notsee the orders. RN advised patient the orders were placed on 05/17 to advise collaborating supervising physician of this they should be able to look it up by date. Patient plans to have drawn in the AM on 05/30 day of her Paracentesis appointment. She is aware it needs to be fasting. * Result Encounter Note - Enmanuel Wetzel MD - 05/23/2025 4:32 PM EDT I ordered insulin level on this Pt but apparently not done. Pls check with lab. If can't be added, advise Pt to have it drawn next time she goes for paracentesis (fasting before taking insulin). Thanks. * Result Encounter Note - Wilma Arana RN - 05/23/2025 11:31 AM EDT May 23 labs documented in this encounter Plan of Treatment Upcoming Encounters Date Type Department Care Team (Late st Contact Info) Description 06/27/2025 9:30 AM EDT Appointment [facility] Interventional Radiology [address] [place] [address] 06/27/2025 10:30 AM EDT Appointment [facility] Interventional Radiology [address] [place] [address] 07/04/2025 10:30 AM EDT Appointment [facility] Interventional Radiology [address] [place] [address] 07/04/2025 11:30 AM EDT Appointment [facility] Interventional Radiology [address] [place] [address] 07/09/2025 2:40 PM EDT Office Visit [facility] [address] [facility], [address] [place] [address] Ar Dominique MD [address] [place] [address] 07/11/2025 10:30 AM EDT Appointment [facility] Interventional Radiology [address] [place] [address] 07/11/2025 11:30 AM EDT Appointment [facility] Interventional Radiology [address] [place] [address] 07/18/2025 10:30 AM EDT Appointment [facility] Interventional Radiology [address] [place] [address] 07/18/2025 11:30 AM EDT Appointment [facility] Interventional Radiology [address] [place] [address] 07/25/2025 10:30 AM EDT Appointment [facility] Interventional Radiology [address] [place] [address] 07/25/2025 11:30 AM EDT Appointment [facility] Interventional Radiology [address] [place] [address] 07/31/2025 9:00 AM EDT Office Visit [address] [address] Alvarez Zimmer MD [address] [place] [address] 08/20/2025 9:30 AM EDT Clinical Support [facility] [address] [place] [address] 08/20/2025 10:30 AM EDT Social Work [facility] [place] [address] [place] [address] [place] [address] 08/20/2025 11:00 AM EDT Office Visit [facility] [address] [place] [address] Jude Duque MD [address] [place] [address] 10/30/2025 1:20 PM EST Office Visit [facility] Endocrinology [address] [place] [phone] Sharif Moreno, DPM [address] [place] [address] documented as of this encounter [...] of this encounter Care Teams Director Of Labor And Delivery Relationship Specialty Start Date End [place] [phone] PCP - General Family Medicine 12/07/24 Lea Fernando [address] [facility] [address] [place] [address] Mc Kay Machine Operator Endocrinology 08/29/24 Rachel Ray, RENEWALS MANAGER [address] [facility] [address] [place] [address] Nurse Practitioner Gastroenterology 09/24/24 Tamera Isabel LPN VALUE-BASED TRANSFORMATION PROGRAM Licensed Practical Nurse 05/29/25 documented as of this encounter
--- OUTSIDE RECORDS SUMMARY | 2025-06-23 17:46 | XMS_ITS | Encounter Summary ---
Author Organization Healthcare Address [address] [place] [address] Care Team Providers Care Coat Check Attendant Name Role Phone Lea Fernando Unavailable [phone] Rachel Ray CONVEYOR BELT INSTALLER Unavailable [phone] Alvarez Zimmer MD Primary Care Provider [phone] Tamera Isabel LPN Unavailable Unavailabl e Reason for Visit * Reason Onset Date Comments Med Refill 06/01/2025 Encounter Details Date Type Department Care Team (Late st Contact Info) Description 06/01/2025 Refill [facility] [address], [address] [place] [address] Ar Dominique MD [address] [place] [address] Chronic kidney disease, stage 3b [...] How often do you attend [facility] or oriental orthodox services? Patient unable to [...] place to sleep or slept in a correction (including now)? Yes 08/29/2024 PHQ-9 Answer Date [...] any time in the past 12 m [facility], were you homeless or living in a correction (including now)? No 03/06/2025 Humiliation, Afraid, Rape, [...] more drinks on one occasion? Never 06/05/2025 [facility] Occup[facility] - Occupational [...] any time in the past 12 m [facility], were you homeless or living in a correction (including now)? No 05/29/2025 CAGE ASSESSMENT Answer [...] drink first t kennedy in the morning (EYE-RELAY MECHANIC) to steady your nerves or to get [...] 0 06/05/2025 2:44 PM EDT Gissel Iniguez L * Question Answer Date of Assessment Author Q1: How often do you have a drink containing alcohol? Never 06/05/2025 2:44 PM EDT Anisha Marino ca L Q2: How many drinks containing alcohol do you have on a typical day when you are drinking? Patient does not drink 06/05/2025 2:44 PM EDT Gissel Marino L Q3: How often do you have six or more drinks on one occasion? Never 06/05/2025 2:44 PM EDT Anisha Marino ca L * Calculated C-SSRS Risk Score (Lifetime/Recent) Answer [...] Telephone Encounter - Shauna Hernandez LPN - 06/04/2025 12:48 PM EDT Patient has refills at pharmacy and just needs to request. Spoke with patient and will contact pharmacy. Medication sent for enough until seen by provider. Appointment confirmed. Patient will have labs collected on 06/11 with transplant labs. documented in this encounter Plan of Treatment Upcoming Encounters Date Type Department Care Team (Late st Contact Info) Description 06/27/2025 9:30 AM EDT Appointment [facility] [address] [place] [address] 06/27/2025 10:30 AM EDT Appointment [facility] [address] [place] [address] 07/04/2025 10:30 AM EDT Appointment [facility] [address] [place] [address] 07/04/2025 11:30 AM EDT Appointment [facility] [address] [place] [address] 07/09/2025 2:40 PM EDT Office Visit [facility] Bone & Mineral Metabolism [address], [address] [place] [address] Ar Dominique MD [address] [place] [address] 07/11/2025 10:30 AM EDT Appointment [facility] [address] [place] [address] 07/11/2025 11:30 AM EDT Appointment [facility] [address] [place] [address] 07/18/2025 10:30 AM EDT Appointment [facility] [address] [place] [address] 07/18/2025 11:30 AM EDT Appointment [facility] [address] [place] [address] 07/25/2025 10:30 AM EDT Appointment [facility] [address] [place] [address] 07/25/2025 11:30 AM EDT Appointment [facility] [address] [place] [address] 07/31/2025 9:00 AM EDT Office Visit [facility] [address] [place] [address] Alvarez Zimmer MD [address] [place] [address] 08/20/2025 9:30 AM EDT Clinical Support [facility] [place] [address] [place] [address] 08/20/2025 10:30 AM EDT Social Work [facility] [place] [address] [place] [address] [place] [address] 08/20/2025 11:00 AM EDT Office Visit [facility] [place] [address] [place] [address] Jude Duque MD [address] [place] [address] 10/30/2025 1:20 PM EST Office Visit [facility] Endocrinology [address] [place] [address] Sharif Moreno, ROSY [address] [place] [address] documented as of this encounter [...] documented as of this encounter Care Teams Coat Check Attendant Relationship Specialty Start Date End Date Alvarez Zimmer MD [address] [place] [address] PCP - General Family Medicine 12/07/24 Lea Fernando [address] [facility] [address] [facility] [address] [place] [address] Learning Center Coordinator Endocrinology 08/29/24 Rachel Ray APRN [address] [facility] [address] [place] [address] Nurse Practitioner Gastroenterology 09/24/24 Tamera Isabel LPN VALUE-BASED TRANSFORMATION PROGRAM Licensed Practical Nurse 05/29/25 documented as of this encounter
--- OUTSIDE RECORDS SUMMARY | 2025-06-23 17:46 | XMS_ITS | Encounter Summary ---
Author Organization Healthcare Address [address] [place] [address] Care Team Providers Care Maintenance Technician 3Rd Shift Name Role Phone Lea Fernando Unavailable [phone] Rachel Ray GAMES DEALER Unavailable [phone] Alvarez Zimmer MD Primary Care Provider [phone] Encounter Details Date Type Department Care Team (Late st Contact Info) Description 05/23/2025 Orders Only [facility] Endocrinology [address] [place] [address] Enmanuel Wetzel MD [address] [place] [address] Social History Tobacco Use Types [...] 01/10/2025 How often do you attend [facility] or orthodox services? Patient unable to answer 01/10/2025 [...] Recorded Patient Health Questionnaire-2 Score 1 05/07/2025 [facility] Occupat ional Health - Occupational [...] time in the past 12 m [facility], were you homeless or living in a longterm (including now)? No 03/06/2025 CAGE ASSESSMENT Answer [...] drink first t kennedy in the morning (EYE-SPLITTING MACHINE TENDER) to steady your nerves or to get [...] Upcoming Encounters Date Type Department Care Team ([facility] Contact Info) Description 06/27/2025 9:30 AM EDT Appointment [facility] [address] [place] [address] 06/27/2025 10:30 AM EDT Appointment [facility] [address] [place] [address] 07/04/2025 10:30 AM EDT Appointment [facility] [address] [place] [address] 07/04/2025 11:30 AM EDT Appointment [facility] [address] [place] [address] 07/09/2025 2:40 PM EDT Office Visit [facility] [address], [address] [place] [address] Ar Dominique MD [address] [address] [place] [address] 07/11/2025 10:30 AM EDT Appointment [facility] [address] [place] [address] 07/11/2025 11:30 AM EDT Appointment [facility] [address] [place] [address] 07/18/2025 10:30 AM EDT Appointment [facility] [address] [place] [address] 07/18/2025 11:30 AM EDT Appointment [facility] [address] [place] [address] 07/25/2025 10:30 AM EDT Appointment [facility] [address] [place] [address] 07/25/2025 11:30 AM EDT Appointment [facility] [address] [place] [address] 07/31/2025 9:00 AM EDT Office Visit [facility] [address] [place] [address] Alvarez Zimmer MD [address] [place] [address] 08/20/2025 9:30 AM EDT Clinical Support [facility] [place] [address] [place] [address] 08/20/2025 10:30 AM EDT Social Work [facility] [place] [address] [place] [address] Deysi Ortega [place], [place] [id number] 08/20/2025 11:00 AM EDT Office Visit [facility] [place] [address] [place] [address] Jude Duque MD [address] [place] [address] 10/30/2025 1:20 PM EST Office Visit [facility] Endocrinology [address] [place] [address] Sharif Moreno, DPM [address] [place] [address] documented as of this encounter [...] documented as of this encounter Care Teams Maintenance Technician 3Rd Shift Relationship Specialty Start Date End Date Alvarez Zimmer MD [address] [place] [address] PCP - General Family Medicine 12/07/24 Lea Fernando [address] [place] [address] Watch Dial Maker Endocrinology 08/29/24 Rachel Ray, GAMES DEALER [address] [facility] [address] [place] [address] Nurse Practitioner Gastroenterology 09/24/24 documented as of this encounter
--- OUTSIDE RECORDS SUMMARY | 2025-06-23 17:46 | XMS_ITS | Encounter Summary ---
Author Organization Healthcare Address [address] [place] [address] Care Team Providers Care House Calls Nurse Name Role Phone Lea Fernando Unavailable [phone] Rachel Ray CORE SHAPER SIDES Unavailable [phone] Alvarez Zimmer MD Primary Care Provider [phone] Tamera Isabel LPN Unavailable Unavailabl e Encounter Details Date Type Department Care Team (Latest Contact Info) Description 05/31/2025 Travel Social History Tobacco Use Types Packs/Day [...] week 01/10/2025 How often do you attend [facility] or church services? Patient unable to answer 01/10/2025 Do you belong to any clubs o r organizations such as lutheran groups, unions, fraternal or athletic groups, or [...] any time in the past 12 m [facility], were you homeless or living in [...] you attend chur ch or church services? Never 05/29/2025 Do you belong to any clubs o r organizations such as lutheran groups, unions, fraternal or athletic groups, or [...] more drinks on one occasion? Never 05/29/2025 [facility] [...] any time in the past 12 m [facility], were you homeless or living in [...] drink first t kennedy in the morning (EYE-ONLINE ADVERTISING ANALYST) to steady your nerves or to [...] as of this encounter Functional Status * Calculated C-SSRS Risk Score (Lifetime/Recent) Answer Date of Assessment Author No Risk Indicated 05/31/2025 12:55 PM EDT Deysi Blanca, RN * Question Answer Date of Assessment Author 1. Wish to be (Past 1 Month) No 12:55 PM EDT Deysi Blanca, RN 2. Non-Specific Active Suici lzi Thoughts (Past 1 Month) No 05/31/2025 12:55 PM EDT Bridger Blanca, RN 6. Suicidal Behavior (Lifetime) No 12:55 PM EDT Deysi Blanca, RN documented as of this encounter Plan of Treatment Upcoming Encounters Date Type Department Care Team (Late st Contact Info) Description 06/27/2025 9:30 AM EDT Appointment [facility] [address] [place] [address] 06/27/2025 10:30 AM EDT Appointment [facility] [address] [place] [address] 07/04/2025 10:30 AM EDT Appointment [facility] [address] [place] [address] 07/04/2025 11:30 AM EDT Appointment [facility] [address] [place] [address] 07/09/2025 2:40 PM EDT Office Visit [facility] Bone & Mineral Metabolism [address], [address] [place] [address] Ar Dominique MD [address] [facility] [address] [place] [address] 07/11/2025 10:30 AM EDT Appointment [facility] [address] [place] [address] 07/11/2025 11:30 AM EDT Appointment [facility] [address] [place] [address] 07/18/2025 10:30 AM EDT Appointment [facility] [address] [place] [address] 07/18/2025 11:30 AM EDT Appointment [facility] [address] [place] [facility] [place] [address] 07/25/2025 10:30 AM EDT Appointment [facility] [address] [place] [address] 07/25/2025 11:30 AM EDT Appointment [facility] [address] [place] [address] 07/31/2025 9:00 AM EDT Office Visit [facility] [address] [place] [address] Alvarez Zimmer MD [address] [place] [address] 08/20/2025 9:30 AM EDT Clinical Support [facility] [place] [address] [place] [address] 08/20/2025 10:30 AM EDT Social Work [facility] [place] [address] [place] [address] Deysi Ortega [place], [place] [address] 08/20/2025 11:00 AM EDT Office Visit [facility] [place] [address] [place] [address] Jude Duque MD [address] [place] [address] 10/30/2025 1:20 PM EST Office Visit [facility] Endocrinology [address] [place] [address] Sharif Moreno, DPNicole [address] [place] [address] documented as of this encounter Visit Diagnoses [...] documented as of this encounter Care Teams House Calls Nurse Relationship Specialty Start Date End Date Alvarez Zimmer MD [address] [place] [address] PCP - General Family Medicine 12/07/24 Lea Fernando [address] [place] [address] Dog Barber Endocrinology 08/29/24 Rachel Ray APRN [address] [place] [address] Nurse Practitioner Gastroenterology 09/24/24 Tamera Isabel LPN VALUE-BASED TRANSFORMATION PROGRAM Licensed Practical Nurse 05/29/25 documented as of this encounter
--- OUTSIDE RECORDS SUMMARY | 2025-06-23 17:46 | XMS_ITS | Encounter Summary ---
Author Organization Healthcare Address [address] [place] [address] Care Team Providers Care Hard Candy Spinner Name Role Phone Lea Fernando Unavailable [phone] Rachel Ray POST FORM REMOVER Unavailable [phone] Alvarez Zimmer MD Primary Care Provider [phone] Tamera Isabel LPN Unavailable Unavailabl e Encounter Details Date Type Department Care Team (Latest Contact Info) Description 05/29/2025 Travel Social History Tobacco Use Types Packs/Day [...] week 01/10/2025 How often do you attend [facility] or denominational services? Patient unable to answer [...] you attend chur ch or denominational services? Never 05/29/2025 Do you belong to [...] more drinks on one occasion? Never 05/29/2025 [facility] [...] drink first t kennedy in the morning (EYE-PROCESS IMPROVEMENT ANALYST) to steady your nerves or to [...] Score Answer Date of Assessment Author 0 05/29/2025 2:26 PM EDT Ambar Isabel LPN * Question Answer Date of Assessment Author Q1: How often do you have a drink containing alcohol? Never 05/29/2025 2:26 PM EDT Tamera Isabel LPN Q2: How many drinks containing alcohol do you have on a typical day when you are drinking? Patient does not drink 05/29/2025 2:26 PM EDT Tamera Isabel LPN Q3: How often do you have six or more drinks on one occasion? Never 05/29/2025 2:26 PM EDT Tamera Isabel LPN documented as of this encounter Plan of Treatment Upcoming Encounters Date Type Department Care Team (Late st Contact Info) Description 06/27/2025 9:30 AM EDT Appointment [facility] [address] [place] [address] 06/27/2025 10:30 AM EDT Appointment [facility] [address] [place] [address] 07/04/2025 10:30 AM EDT Appointment [facility] [address] [place] [address] 07/04/2025 11:30 AM EDT Appointment [facility] [address] [place] [address] 07/09/2025 2:40 PM EDT Office Visit [facility] Bone & Mineral Metabolism [address] [facility] [address] [facility] [address] [place] [address] Ar Dominique MD [address] [facility] [address] [place] [address] 07/11/2025 10:30 AM EDT Appointment [facility] [address] [place] [address] 07/11/2025 11:30 AM EDT Appointment [facility] [address] [place] [address] 07/18/2025 10:30 AM EDT Appointment [facility] [address] [place] [address] 07/18/2025 11:30 AM EDT Appointment [facility] [address] [place] [address] 07/25/2025 10:30 AM EDT Appointment [facility] [address] [place] [address] 07/25/2025 11:30 AM EDT Appointment [facility] [address] [place] [address] 07/31/2025 9:00 AM EDT Office Visit [facility] [address] [place] [address] Alvarez Zimmer MD [address] [place] [address] 08/20/2025 9:30 AM EDT Clinical Support [facility] [place] [address] [place] [address] 08/20/2025 10:30 AM EDT Social Work [facility] [place] [address] [place] [address] Deysi Ortega [place], [place] [address] 08/20/2025 11:00 AM EDT Office Visit [facility] [place] [address] [place] [address] Jude Duque MD [address] [place] [address] 10/30/2025 1:20 PM EST Office Visit [facility] Endocrinology [address] [place] [address] Sharif Moreno, DPM [address] [place] [address] documented as of this encounter Visit Diagnoses [...] documented as of this encounter Care Teams Hard Candy Spinner Relationship Specialty Start Date End Date Alvarez Zimmer MD [address] [place] [address] PCP - General Family Medicine 12/07/24 Lea Fernando [address] [place] [address] Waste Paper Hammermill Operator Endocrinology 08/29/24 Rachel Ray APRN [address] [facility] [address] [place] [address] Nurse Practitioner Gastroenterology 09/24/24 Tamera Isabel LPN VALUE-BASED TRANSFORMATION PROGRAM Licensed Practical Nurse 05/29/25 documented as of this encounter
--- OUTSIDE RECORDS SUMMARY | 2025-06-23 17:46 | XMS_ITS | Encounter Summary ---
Author Organization Healthcare Address [address] [place] [address] Care Team Providers Care Referral Nurse Name Role Phone Lea Fernando Unavailable [phone] Rachel Ray CHERRY DIPPER Unavailable [phone] Alvarez Zimmer MD Primary Care Provider [phone] Encounter Details Date Type Department Care Team (Latest Contact Info) Description 05/23/2025 Travel Social History Tobacco Use Types Packs/Day [...] any clubs o r organizations such as muslim groups, unions, fraternal or athletic groups, or [...] Recorded Patient Health Questionnaire-2 Score 1 05/07/2025 [facility] of Occupat ional Health - Occupational [...] any time in the past 12 m [facility], were you homeless or living in a correction (including now)? No 03/06/2025 CAGE ASSESSMENT Answer [...] drink first t kennedy in the morning (EYE-FULL STACK NET DEVELOPER) to steady your nerves or to get [...] Appointment [facility] [address] [place] [address] 06/27/2025 10:30 AM EDT Appointment [facility] [address] [place] [address] 07/04/2025 10:30 AM EDT Appointment [facility] [address] [place] [address] 07/04/2025 11:30 AM EDT Appointment [facility] [address] [place] [address] 07/09/2025 2:40 PM EDT Office Visit [facility] [address] [facility], [address] [place] [address] Ar Dominique MD [address] [facility] [address] [place] [address] 07/11/2025 10:30 AM EDT Appointment [facility] [address] [place] [address] 07/11/2025 11:30 AM EDT Appointment [facility] [address] [place] [address] 07/18/2025 10:30 AM EDT Appointment [facility] [address] [place] [address] 07/18/2025 11:30 AM EDT Appointment [facility] [address] [place] [address] 07/25/2025 10:30 AM EDT Appointment [facility] [address] [place] [address] 07/25/2025 11:30 AM EDT Appointment [facility] [address] [place] [address] 07/31/2025 9:00 AM EDT Office Visit [facility] [address] [place] [address] Alvarez Zimmer MD [address] [place] [address] 08/20/2025 9:30 AM EDT Clinical Support [facility] [place] [address] [place] [address] 08/20/2025 10:30 AM EDT Social Work [facility] [place] [address] [place] [address] Deysi Ortega [place], [place] [id number] 08/20/2025 11:00 AM EDT Office Visit [facility] [place] [address] [place] [address] Jude Duque MD [address] [place] [address] 10/30/2025 1:20 PM EST Office Visit [facility] Endocrinology [address] [place] [address] Sharif Moreno, DPNicole [address] [place] [address] documented as of this [...] documented as of this encounter Care Teams Referral Nurse Relationship Specialty Start Date End Date Alvarez Zimmer MD [address] [place] [address] PCP - General Family Medicine 12/07/24 Lea Fernando [address] [place] [address] Fur Trapper Endocrinology 08/29/24 Rachel Ray, CHERRY DIPPER [address] [place] [address] Nurse Practitioner Gastroenterology 09/24/24 documented as of this encounter
--- OUTSIDE RECORDS SUMMARY | 2025-06-23 17:46 | XMS_ITS | Encounter Summary ---
Author Organization Healthcare Address [address] [place] [address] Care Team Providers Care Teletype Clerk Name Role Phone Lea Fernando Unavailable [phone] Rachel Ray OIL WELL LOGGER Unavailable [phone] Alvarez Zimmer MD Primary Care Provider [phone] Tamera Isabel LPN Unavailable Unavailabl e Encounter Details Date Type Department Care Team (Latest Contact Info) Description 05/30/2025 Travel Social History Tobacco Use Types Packs/Day [...] you attend [facility] or jainism services? Patient unable to answer 01/10/2025 Do you belong to any clubs o r organizations such as christianity groups, unions, fraternal or athletic groups, or [...] in the past 12 m [facility], were you homeless or living [...] you attend chur ch or jainism services? Never 05/29/2025 Do you belong to any clubs o r organizations such as christianity groups, unions, fraternal or athletic groups, or [...] occasion? Never 05/29/2025 [facility]ational Stress Questionnaire [...] in the past 12 m [facility], were you homeless or living [...] first t kennedy in the morning (EYE-REEL WORKER) to steady your nerves or to get [...] Appointment [facility] Inter[facility] Radiology [address] [place] [address] 06/27/2025 10:30 AM EDT Appointment [facility] [address] [place] [address] 07/04/2025 10:30 AM EDT Appointment [facility] [address] [place] [address] 07/04/2025 11:30 AM EDT Appointment [facility] [address] [place] [address] 07/09/2025 2:40 PM EDT Office Visit [facility] Mineral Metabolism [address], [address] [place] [address] Ar Dominique MD [address] [place] [address] 07/11/2025 10:30 AM EDT Appointment [facility]iology [address] [place] [address] 07/11/2025 11:30 AM EDT Appointment [facility] [address] [place] [address] 07/18/2025 10:30 AM EDT Appointment [facility] [address] [place] [address] 07/18/2025 11:30 AM EDT Appointment [facility] [address] [place] [address] 07/25/2025 10:30 AM EDT Appointment [facility] [address] [place] [address] 07/25/2025 11:30 AM EDT Appointment [facility] [address] [place] [address] 07/31/2025 9:00 AM EDT Office Visit [address] [address] Alvarez Zimmer MD [address] [place] [address] 08/20/2025 9:30 AM EDT Clinical Support [facility] [address] [place] [address] 08/20/2025 10:30 AM EDT Social Work [facility] [place] [address] [place] [address] [place] [address] 08/20/2025 11:00 AM EDT Office Visit [facility] [place] [address] [place] [address] Jude Duque MD [address] [place] [address] 10/30/2025 1:20 PM EST Office Visit [facility] Endocrinology [address] [place] [address] Sharif Moreno, ROSY [address] [place] [address] documented as of this encounter [...] documented as of this encounter Care Teams Teletype Clerk Relationship Specialty Start Date End Date Alvarez Zimmer MD [address] [place] [address] PCP - General Family Medicine 12/07/24 Lea Fernando [address] [facility] [address] [place] [address] [facility] Endocrinology 08/29/24 Rachel Ray APRN [address] [facility] [address] [place] [address] Nurse Practitioner Gastroenterology 09/24/24 Tamera Isabel LPN VALUE-BASED TRANSFORMATION PROGRAM Licensed Practical Nurse 05/29/25 documented as of this encounter
--- OUTSIDE RECORDS SUMMARY | 2025-06-23 17:46 | XMS_ITS | Encounter Summary ---
Author Organization Healthcare Address [address] [place] [address] Care Team Providers Care Service Electrician Name Role Phone Lea Fernando Unavailable [phone] Rachel Ray ACCESS COORDINATOR Unavailable [phone] Alvarez Zimmer MD Primary Care Provider [phone] Tamera Isabel SPONGE DIVER Unavailable Unavailabl e Reason for Visit * Reason [place] Date Comments Med Refill 06/01/2025 Encounter Details Date Type Department Care Team (Late st Contact Info) Description 06/01/2025 Refill [facility] [address] [place] [address] Octavia Herrera, PA [address] [facility] [address] [place] [address] 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) (CMS/HCC) Social History Tobacco Use Types Packs/Day [...] you attend [facility] or nondenominational services? Patient unable to answer [...] any time in the past 12 m [facility], were you homeless or living [...] How often do you attend chur or nondenominational services? Never 05/29/2025 Do you [...] more drinks on one occasion? Never 05/29/2025 [facility] - [...] any time in the past 12 m [facility], were you homeless or living [...] drink first t kennedy in the morning (EYE-INSTRUMENT AND CONTROL SERVICE PERSON) to steady your nerves or to [...] Appointment [facility] Interventional Radiology [address] [place] [address] 06/27/2025 10:30 AM EDT Appointment [facility] Inter[facility] Radiology [address] [place] [address] 07/04/2025 10:30 AM EDT Appointment [facility] Inter[facility] Radiology [address] [place] [address] 07/04/2025 11:30 AM EDT Appointment [facility] Inter[facility] Radiology [address] [place] [address] 07/09/2025 2:40 PM EDT Office Visit [facility] [address] [facility], [address] [place] [address] Ar Dominique MD [address] [place] [address] 07/11/2025 10:30 AM EDT Appointment [facility] Inter[facility] Radiology [address] [place] [address] 07/11/2025 11:30 AM EDT Appointment [facility] [address] [place] [address] 07/18/2025 10:30 AM EDT Appointment [facility] [address] [place] [address] 07/18/2025 11:30 AM EDT Appointment [facility] [address] [place] [address] 07/25/2025 10:30 AM EDT Appointment [facility] [address] [place] [address] 07/25/2025 11:30 AM EDT Appointment [facility] Inter[facility] Radiology [address] [place] [address] 07/31/2025 9:00 AM EDT Office Visit [facility] [address] [place] [address] Alvarez Zimmer MD [address] [place] [address] 08/20/2025 9:30 AM EDT Clinical Support [facility] [place] [address] [place] [address] 08/20/2025 10:30 AM EDT Social Work [facility] [place] [address] [place] [address] Deysi Ortega [place], [place] [id number] 08/20/2025 11:00 AM EDT Office Visit [facility] [place] [address] [place] [address] Jude Duque MD [address] [place] [address] 10/30/2025 1:20 PM EST Office Visit [facility] Endocrinology [address] [place] [address] Sharif Moreno, ROSY [address] [place] [address] documented as of this encounter Visit Diagnoses Diagnosis 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) (CMS/HCC) documented in this encounter Additional Health Concerns Assessment Noted Time PHQ-9 Depression Total Score: 0 03/06/20 25 1:21 PM EDT A fall risk assessment has been complete d for the patient 05/29/2025 2:34 PM EDT A Body Mass Index follow-up plan has been documented for the patient 05/30/2025 11:28 AM EDT documented as of this encounter Care Teams Service Electrician Relationship Specialty Start Date End Date Alvarez Zimmer MD [address] [place] [address] PCP - General Family Medicine 12/07/[address] [facility] [address] [place] [address] [facility] Endocrinology 08/29/24 Rachel Ray APRN [address] [place] [address] Nurse Practitioner Gastroenterology 09/24/24 Tamera Isabel, SPONGE DIVER VALUE-BASED TRANSFORMATION PROGRAM Licensed Practical Nurse 05/29/25 documented as of this encounter
--- OUTSIDE RECORDS SUMMARY | 2025-06-23 17:46 | XMS_ITS | Encounter Summary ---
Author Organization [facility] Address [address] [place] [address] Care Team Providers Care Police Department Secretary Name Role Phone Lea Fernando Unavailable [phone] Rachel Ray GARAGE MECHANIC Unavailable [phone] Alvarez Zimmer MD Primary Care Provider [phone] Tamera Isabel LPN Unavailable Unavailabl e Reason for Visit * Reason Comments Annual Wellness Visit Encounter Details Date Type Department Care Team (Late st Contact Info) Description 05/29/2025 Patient Outreach [facility] [address] [facility], [address] [place] [address] Tamera Isabel LPN VALUE-BASED TRANSFORMATION PROGRAM Annual Wellness Visit Social History Tobacco Use Types Packs/Day Years [...] you attend chur ch or jewish services? Patient unable to answer [...] do you attend chur or jewish services? Never 05/29/2025 Do you [...] more drinks on one occasion? Never 05/29/2025 [facility] - [...] drink first t kennedy in the morning (EYE-SANITARY AIDE) to steady your nerves or to get rid of a hangover? 0 10/22/2024 CAGE Questionnaire Score 0 024 Utilities Answer Date Recorded In the past 12 months has th e [employer], gas, oil, or water [employer] threatened to shut off services in your [...] Isabel LPN documented as of this encounter Miscellaneous Notes * Progress Notes - Tamera Isabel LPN - 05/29/2025 2:15 PM EDT 05/29/2025 AWV Call # 1 Patient Reached: Y HRA Completed: Y 6-Item Cognitive Screen Completed: Y Care Gaps Discussed: Annual Wellness Visit (AWV) Outcome: Discussed the importance of an annual wellness visit, reviewed medications, updated the SDOH assessment, updated learning needs, updated STEADI fall risk, and reminded the patient of the date and time of the upcoming appointment. Social Drivers of Health with Concerns Stress: Stress Concern Present (05/29/2025) [facility] [place] [facility] - Occupational Stress Questionnaire Feeling of Stress: Very much Physical Activity: Inactive (05/29/2025) Exercise Vital Sign Days of Exercise per Week: 0 days Minutes of Exercise per Session: 0 min Social Connections: Socially Isolated (05/29/2025) Social Connection and Isolation Panel Frequency of Communication with Friends and Family: More than three times a week Frequency of Social Gatherings with Friends and Family: Once a week Attends Taoism Services: Never Active Member of Clubs or Organizations: No Attends Club or Organization Meetings: Never Marital Status: Financial Resource Strain: Low Risk (01/10/2025) Overall Financial Resource Strain (CARDIA) Difficulty of Paying Living Expenses: Not very hard Recent Concern: Financial Resource Strain - Medium Risk (10/16/2024) Overall Financial Resource Strain (CARDIA) Difficulty of Paying Living Expenses: Somewhat hard documented in this encounter Plan of Treatment Upcoming Encounters Date Type Department Care Team (Late st Contact Info) Description 06/27/2025 9:30 AM EDT Appointment [facility] Interventional Radiology [address] [place] [address] 06/27/2025 10:30 AM EDT Appointment [facility] Interventional Radiology [address] [place] [address] 07/04/2025 10:30 AM EDT Appointment [facility] Inter[facility] Radiology [address] [place] [address] 07/04/2025 11:30 AM EDT Appointment [facility] Interventional Radiology [address] [place] [address] 07/09/2025 2:40 PM EDT Office Visit [facility] Bone [facility] Mineral Metabolism [address] [facility], [address] [place] [address] Ar Dominique MD [address] [place] [address] 07/11/2025 10:30 AM EDT Appointment [facility] Interventional Radiology [address] [place] [address] 07/11/2025 11:30 AM EDT Appointment [facility] Inter[facility] Radiology [address] [place] [address] 07/18/2025 10:30 AM EDT Appointment [facility] Inter[facility] Radiology [address] [place] [address] 07/18/2025 11:30 AM EDT Appointment [facility] Inter[facility] Radiology [address] [place] [address] 07/25/2025 10:30 AM EDT Appointment [facility] Inter[facility] Radiology [address] [place] [address] 07/25/2025 11:30 AM EDT Appointment [facility] Interventional Radiology [address] [place] [address] 07/31/2025 9:00 AM EDT Office Visit [facility] [address] [place] [address] Alvarez Zimmer MD [address] [place] [address] 08/20/2025 9:30 AM EDT Clinical Support [facility] [place] [address] [place] [address] 08/20/2025 10:30 AM EDT Social Work [facility] [place] [address] [place] [address] Deysi Ortega [place], [place] [phone] 08/20/2025 11:00 AM EDT Office Visit [facility] [place] [address] [place] [address] Jude Duque MD [address] [place] [address] 10/30/2025 1:20 PM EST Office Visit [facility] Endocrinology [address] [place] [address] Sharif Moreno, DPM [address] [place] [address] documented as of this encounter Visit Diagnoses [...] documented as of this encounter Care Teams Police Department Secretary Relationship Specialty Start Date End Date Alvarez Zimmer MD [address] [place] [address] PCP - General Family Medicine 12/07/24 Lea Fernnado [address] [facility] [address] [place] [address] Financial Adviser Endocrinology 08/29/24 Rachel Ray, GARAGE MECHANIC [address] [place] [address] Nurse Practitioner Gastroenterology 09/24/24 Tamera Isabel LPN VALUE-BASED TRANSFORMATION PROGRAM Licensed Practical Nurse 05/29/25 documented as of this encounter
--- OUTSIDE RECORDS SUMMARY | 2025-06-23 17:46 | XMS_ITS | Encounter Summary ---
Author Organization [employer] ([place], [place], [place], [place]) Address [address] [place] [address] Care Team Providers Care Chucking Machine Operator Name Role Phone Taina Lyles APRN Primary Care Provider Encounter Details Date Type Department Care Team (Late st Contact Info) Description 07/02/2021 Transcribed Document [facility] [address] [place] [address] ProviderWilliam MD [address] [place] [address] Social History Tobacco Use Types Packs/Day Years Used Date Smoking Tobacco: Never Assessed Comments Unknown Sex and Gender Information Value Date Recorded Sex Assigned at Not on file Legal Sex Female 12:21 PM CDT Gender Identity Not on file Sexual Orientation Not on file documented as of this encounter Miscellaneous Notes * Cerner Conversion Note - William ProviderMD - 07/02/2021 10:49 AM CDT Electronically signed by Luigi [facility] Conversion Ribbon Lap Machine Tender Cerner at 03/07/2023 9:52 AM CDT documented in this encounter Plan of Treatment Not on file documented as of this encounter Visit Diagnoses Not on filedocumented in this encounter Care Teams Chucking Machine Operator Relationship Specialty Start Date End Date Taina Lyles [facility]N [address] [facility] [place] [address] PCP - General Nurse Practitioner 06/15/23 documented as of this encounter
--- NOTE | 2025-06-23 17:47 | ED_ITS ---
Discharge Plan Disposition Patient Disposition: Home, Self-Care Referrals Follow up/Referrals: Alvarez Zimmer MD [Primary Care Provider, [facility]] - See instructions Activity Restrictions/Add. Instructions Additional Instructions/Restrictions: As discussed per the microwave radio technician at please stop your rosuvastatin and your omeprazole until you are followed up by the acute kidney injury clinic at . They will call you for an appointment on either Tuesday or Tuesday. Also as discussed come back tomorrow morning to have your creatinine rechecked at our lab and order has been placed by Dr. Rodriguez who will follow-up on those test results and call you. If you have any more social concerns I recommend he go to the emergency [facility] emergency department if you feel that she needs to be admitted for possible social management. If you or the patient decide that she wants to pursue hospice care alone then you may come back to our hospital as we will be able to manage that here. Clinical Impressions Clinical Impression: CARLOTTA (acute kidney injury), Abdominal pain, Cirrhosis Other Amb Orders Other Ambulatory Orders: Basic Metabolic Panel (Routine) Timeframe: 1 Day Facility: [facility] - Location: Laboratory Ordered By: Irvin Rodriguez Instructions Patient Instructions: DI for Acute Abdominal Pain Print Language Print Language: Tongan Discharge ED Provider: Carmel Rodriguez General Adult HPI <Kandice Maldonado APRN - Last Filed: 06/23/25 21:33> General Chief complaint: Abdominal Pain Stated complaint: Severe stomach and back pain Time Seen by Provider: 06/23/25 17:36 History of Present Illness HPI narrative: patient is a 64-year-old female PMHx diabetes, currently on liver transplant list at , fatty liver who presents to the ED for complaints of abdominal pain and back pain. Patient states that she gets thoracentesis and paracentesis every at , since her paracentesis she has had left upper quadrant abdominal pain that wraps around to her lower back. Related Data Allergies Allergy/AdvReac Type Severity Reaction Status Date / Time No Known Allergies Allergy Verified 06/23/25 17:54 PFSH <Kandice Maldonado APRN - Last Filed: 06/23/25 21:33> PFS Disclaimer: The information contained in this section may have been updated after the patient was seen, as this information can be updated by other users. Social History (Updated 06/23/25 @ 21:33 by Kandice Maldonado APRN) Smoking Status: Never smoker alcohol intake: never current occupational status: unemployed Travel in the last 8 weeks?: None Have you lived/traveled outside US in past 30 days?: No Contact w/someone who lives/traveled outside US past 30 days?: No Exposure to someone with infectious disease in past 14 days?: No Do you have a fever (greater than 100.4 F or 38 C)?: No Have you tested positive for COVID-19?: No Exposed to someone with COVID-19 in past 14 days?: No Do you have a sore throat?: No Do you have a cough?: No Do you have any weakness?: No Do you have any diarrhea?: No Are you experiencing any unusual bleeding?: No Do you have any muscle aches/pain?: Yes Do you have any abdominal pain?: Yes Are you experiencing loss of taste or smell?: No <Kandice Maldonado APRN - Last Filed: 06/23/25 21:33> ROS Obtained: Yes Systems reviewed as appropriate & no additional complaints except as documented Physical Exam <Kandice Maldonado APRN - Last Filed: 06/23/25 21:33> General General appearance: alert and in no apparent distress Head Head exam: atraumatic Neck Neck exam: Present full ROM Chest Chest inspection: Present normal inspection Respiratory Respiratory exam: Present normal lung sounds bilaterally Cardiovascular Cardiovascular exam: Present regular rate Abdominal Exam Abdominal exam: Present soft; Absent tenderness Extremities Exam Extremities exam: Present normal inspection and full ROM Neurological Exam Neurological exam: Present alert and oriented X3 Skin Skin exam: Present dry Medical Decision Making <Kandice Maldonado APRN - Last Filed: 06/23/25 21:33> Medical Records Screening: Per USPSTF and CDC recommendations, given the prevalence of disease in our region, it is our hospital?s policy to screen for HIV and viral Hepatitis for all patients aged 18 and over and those with ongoing risk factors. Valente Inquiry Pt receiving controlled substance: No Vital Signs: 06/23/25 17:35 06/23/25 17:44 06/23/25 18:00 Temperature 98.3 F Temperature Source Oral Pulse Rate 76 68 Pulse Rate [Right] 69 Respiratory Rate 20 Blood Pressure 134/60 130/64 Blood Pressure [Right Arm] 134/60 Blood Pressure Mean Blood Pressure Mean [Right Arm] 84 02 Sat by Pulse Oximetry 99 99 100 Oxygen Delivery Method Room Air Room Air 06/23/25 18:30 06/23/25 19:00 06/23/25 19:30 Temperature Temperature Source Pulse Rate 69 68 84 Pulse Rate [Right] Respiratory Rate Blood Pressure 126/65 123/67 118/64 Blood Pressure [Right Arm] Blood Pressure Mean Blood Pressure Mean [Right Arm] 02 Sat by Pulse Oximetry 96 97 97 Oxygen Delivery Method 06/23/25 19:39 06/23/25 20:00 06/23/25 20:30 Temperature Temperature Source Pulse Rate 72 69 67 Pulse Rate [Right] Respiratory Rate Blood Pressure 117/56 L 123/61 119/61 Blood Pressure [Right Arm] Blood Pressure Mean Blood Pressure Mean [Right Arm] 02 Sat by Pulse Oximetry 97 97 97 Oxygen Delivery Method 06/23/25 21:00 06/23/25 21:30 06/23/25 22:00 Temperature Temperature Source Pulse Rate 69 67 67 Pulse Rate [Right] Respiratory Rate Blood Pressure 127/60 120/64 129/64 Blood Pressure [Right Arm] Blood Pressure Mean 82 90 97 Blood Pressure Mean [Right Arm] 02 Sat by Pulse Oximetry 97 97 97 Oxygen Delivery Method Lab Data Lab Results 06/23/25 17:57: WBC 2.4 L, RBC 3.14 L, Hgb 9.8 L, Hct 29.3 L, MCV 93.3, MCH 31.2, MCHC 33.4, RDW 16.8, Plt Count 39 L*, MPV 12.3 H, Neut % (Auto) 51.4, Lymph % (Auto) 24.1, Guthrie % (Auto) 19.1 H, Eos % (Auto) 4.6, Baso % (Auto) 0.4, Neut # (Auto) 1.2 L, Lymph # (Auto) 0.6 L, Guthrie # (Auto) 0.5, Eos # (Auto) 0.1, Baso # (Auto) 0.0, Sodium 133 L, Potassium 4.4, Chloride 105, Carbon Dioxide 21 L, Anion Gap 11.4, BUN 35 H, Creatinine 2.30 H, Estimated Creat Clear 32, E stimated GFR 21 L, Est GFR ( Amer) 26 L, Glucose 124 H, Lactate 1.9, Calcium 9.3, Total Bilirubin 2.7 H, AST 95 H, ALT 35, Alkaline Phosphatase 246 H , Ammonia 50 H, Troponin I < 0.01, Total Protein 7.4, Albumin 3.0 L, Globulin 4.4 H, Albumin/Globulin Ratio 0.7 L, Lipase 371 H 06/23/25 19:30: Fluid Source Peritoneal fluid, Fluid Volume 30, Fluid Appearance Bloody, Fluid RBC (Auto) 20, Fld Tot Nucleated Cell 206, Fld Polynuclear WBCs % 2, Fld Mononuclear WBCs % 98 06/23/25 17:57 06/23/25 17:57 Orders (Tests/Meds): ED MEDICATIONS Generic Name Dose Route Start Last Admin Trade Name Freq PRN Reason Stop Dose Admin Sodium Chloride 10 ml 06/23/25 17:43 Sodium Chloride 0.9% 10ml Flush Syringe IV 07/23/25 17:42 NEEDED PRN Maintain IV Site Discontinued Medications Generic Name Dose Route Start Last Admin Trade Name Freq PRN Reason Stop Dose Admin Morphine Sulfate 4 mg 06/23/25 17:43 06/23/25 18:11 Morphine 4mg/Ml Syringe IV 06/23/25 17:44 4 mg ONCE ONE Administration Ondansetron HCl 4 mg 06/23/25 17:43 06/23/25 18:11 Ondansetron 4mg/2ml Vial IV 06/23/25 17:44 4 mg ONCE ONE Administration ORDERS Category Date Time Status CT abdomen pelvis wo con Stat Cat Scan 06/23/25 17:43 Completed CXR --portable [XR chest portable] Stat Exams 06/23/25 17:43 Completed POCUS Point of Care (ER Only) Stat Exams 06/23/25 17:54 Taken Ammonia Stat Lab 06/23/25 17:57 Completed Body Fluid: Cell Count w/ Diff Stat Lab 06/23/25 19:30 Completed CBC w/Auto Diff [Complete Blood Count Auto Diff] Stat Lab 06/23/25 17:57 Completed CMP [Comprehensive Metabolic Panel] Stat Lab 06/23/25 17:57 Completed Lactic Acid Stat Lab 06/23/25 17:57 Completed Lipase Stat Lab 06/23/25 17:57 Completed Trop I [Troponin I] Stat Lab 06/23/25 17:57 Completed Urinalysis and Microscopic Stat Lab 06/23/25 17:43 Ordered Body Fluid Cult & Gram Stain Stat Micro 06/23/25 19:30 Received Medical Decision Narrative: In summary, patient is a 64-year-old female PMHx diabetes, currently on liver transplant list at , fatty liver who presents to the ED for complaints of abdominal pain and back pain. Patient states that she gets thoracentesis and paracentesis every at , since her paracentesis she has had left upper quadrant abdominal pain that wraps around to her lower back. She has not been evaluated at for this pain. She has not had anything for pain prior to arrival. Patient states that she is still urinating appropriately. Reports 1 episode of chest pain yesterday on the left side. Denies fever, headache, visual disturbances, shortness of breath, nausea, vomiting, dysuria. Upon initial evaluation patient is alert, oriented and cooperative. She is hemodynamically stable. Physical exam is unremarkable, abdomen is soft and nontender. Differential diagnosis includes SBP, infectious process, ACS, dissection, electrolyte abnormality, among others. Discussed with patient we will proceed with labs, CT scan of the abdomen pelvis, urine. Patient symptomatically managed with IV fluids and morphine. CBC WBC 2.4, stable H&H, platelet count 39. Sodium 133, BUN 35, creatinine 2.30, GFR 21. Alk phos 246, ammonia 50, troponin < 0.01. Lipase 371. Peritoneal fluid fluid volume 30, fluid appearance bloody, fluid RBC 20, nucleated cell count 206. Care transferred to attending, Dr. Rodriguez. <Carmel Rodriguez MD - Last Filed: 06/23/25 22:14> Vital Signs: 06/23/25 17:35 06/23/25 17:44 06/23/25 18:00 Temperature 98.3 F Temperature Source Oral Pulse Rate 76 68 Pulse Rate [Right] 69 Respiratory Rate 20 Blood Pressure 134/60 130/64 Blood Pressure [Right Arm] 134/60 Blood Pressure Mean Blood Pressure Mean [Right Arm] 84 02 Sat by Pulse Oximetry 99 99 100 Oxygen Delivery Method Room Air Room Air 06/23/25 18:30 06/23/25 19:00 06/23/25 19:30 Temperature Temperature Source Pulse Rate 69 68 84 Pulse Rate [Right] Respiratory Rate Blood Pressure 126/65 123/67 118/64 Blood Pressure [Right Arm] Blood Pressure Mean Blood Pressure Mean [Right Arm] 02 Sat by Pulse Oximetry 96 97 97 Oxygen Delivery Method 06/23/25 19:39 06/23/25 20:00 06/23/25 20:30 Temperature Temperature Source Pulse Rate 72 69 67 Pulse Rate [Right] Respiratory Rate Blood Pressure 117/56 L 123/61 119/61 Blood Pressure [Right Arm] Blood Pressure Mean Blood Pressure Mean [Right Arm] 02 Sat by Pulse Oximetry 97 97 97 Oxygen Delivery Method 06/23/25 21:00 06/23/25 21:30 06/23/25 22:00 Temperature Temperature Source Pulse Rate 69 67 67 Pulse Rate [Right] Respiratory Rate Blood Pressure 127/60 120/64 129/64 Blood Pressure [Right Arm] Blood Pressure Mean 82 90 97 Blood Pressure Mean [Right Arm] 02 Sat by Pulse Oximetry 97 97 97 Oxygen Delivery Method Lab Data Lab results reviewed: Yes I reviewed the patient's lab results. Lab Results 06/23/25 17:57: WBC 2.4 L, RBC 3.14 L, Hgb 9.8 L, Hct 29.3 L, MCV 93.3, MCH 31.2, MCHC 33.4, RDW 16.8, Plt Count 39 L*, MPV 12.3 H, Neut % (Auto) 51.4, Lymph % (Auto) 24.1, Guthrie % (Auto) 19.1 H, Eos % (Auto) 4.6, Baso % (Auto) 0.4, Neut # (Auto) 1.2 L, Lymph # (Auto) 0.6 L, Guthrie # (Auto) 0.5, Eos # (Auto) 0.1, Baso # (Auto) 0.0, Sodium 133 L, Potassium 4.4, Chloride 105, Carbon Dioxide 21 L, Anion Gap 11.4, BUN 35 H, Creatinine 2.30 H, Estimated Creat Clear 32, E stimated GFR 21 L, Est GFR ( Amer) 26 L, Glucose 124 H, Lactate 1.9, Calcium 9.3, Total Bilirubin 2.7 H, AST 95 H, ALT 35, Alkaline Phosphatase 246 H , Ammonia 50 H, Troponin I < 0.01, Total Protein 7.4, Albumin 3.0 L, Globulin 4.4 H, Albumin/Globulin Ratio 0.7 L, Lipase 371 H 06/23/25 19:30: Fluid Source Peritoneal fluid, Fluid Volume 30, Fluid Appearance Bloody, Fluid RBC (Auto) 20, Fld Tot Nucleated Cell 206, Fld Polynuclear WBCs % 2, Fld Mononuclear WBCs % 98 Orders (Tests/Meds): ED MEDICATIONS Generic Name Dose Route Start Last Admin Trade Name Freq PRN Reason Stop Dose Admin Sodium Chloride 10 ml 06/23/25 17:43 Sodium Chloride 0.9% 10ml Flush Syringe IV 07/23/25 17:42 NEEDED PRN Maintain IV Site Discontinued Medications Generic Name Dose Route Start Last Admin Trade Name Freq PRN Reason Stop Dose Admin Morphine Sulfate 4 mg 06/23/25 17:43 06/23/25 18:11 Morphine 4mg/Ml Syringe IV 06/23/25 17:44 4 mg ONCE ONE Administration Ondansetron HCl 4 mg 06/23/25 17:43 06/23/25 18:11 Ondansetron 4mg/2ml Vial IV 06/23/25 17:44 4 mg ONCE ONE Administration ORDERS Category Date Time Status CT abdomen pelvis wo con Stat Cat Scan 06/23/25 17:43 Completed CXR --portable [XR chest portable] Stat Exams 06/23/25 17:43 Completed POCUS Point of Care (ER Only) Stat Exams 06/23/25 17:54 Taken Ammonia Stat Lab 06/23/25 17:57 Completed Body Fluid: Cell Count w/ Diff Stat Lab 06/23/25 19:30 Completed CBC w/Auto Diff [Complete Blood Count Auto Diff] Stat Lab 06/23/25 17:57 Completed CMP [Comprehensive Metabolic Panel] Stat Lab 06/23/25 17:57 Completed Lactic Acid Stat Lab 06/23/25 17:57 Completed Lipase Stat Lab 06/23/25 17:57 Completed Trop I [Troponin I] Stat Lab 06/23/25 17:57 Completed Urinalysis and Microscopic Stat Lab 06/23/25 17:43 Ordered Body Fluid Cult & Gram Stain Stat Micro 06/23/25 19:30 Received Medical Decision Narrative: In summary, patient is a 64-year-old female PMHx diabetes, currently on liver transplant list at , fatty liver who presents to the ED for complaints of abdominal pain and back pain. Patient states that she gets thoracentesis and paracentesis every at , since her paracentesis she has had left upper quadrant abdominal pain that wraps around to her lower back. She has not been evaluated at for this pain. She has not had anything for pain prior to arrival. Patient states that she is still urinating appropriately. Reports 1 episode of chest pain yesterday on the left side. Denies fever, headache, visual disturbances, shortness of breath, nausea, vomiting, dysuria. Upon initial evaluation patient is alert, oriented and cooperative. She is hemodynamically stable. Physical exam is unremarkable, abdomen is soft and nontender. Differential diagnosis includes SBP, infectious process, ACS, dissection, electrolyte abnormality, among others. Discussed with patient we will proceed with labs, CT scan of the abdomen pelvis, urine. Patient symptomatically managed with IV fluids and morphine. CBC WBC 2.4, stable H&H, platelet count 39. Sodium 133, BUN 35, creatinine 2.30, GFR 21. Alk phos 246, ammonia 50, troponin < 0.01. Lipase 371. Peritoneal fluid fluid volume 30, fluid appearance bloody, fluid RBC 20, nucleated cell count 206. Care transferred to attending, Dr. Rodriguez. Reassessment 10:[address] scan was performed which I personally interpreted also reviewed radiology images and there is no acute abnormality. Paracentesis from a diagnostic standpoint was performed there is less than 250 PMNs this is not consistent with spontaneous bacterial peritonitis. Serial abdominal exams are benign. Patient does have acute kidney injury with a creatinine of 2.3 up from 1.58 most recently at [facility]. Patient had significant acute kidney injury with a creatinine of 3 at the end of last year had a hospitalization including ICU admission at that time. However creatinine had resolved almost back down to 1.0. Most recently as of last month she followed up in the transplant clinic and they stopped all of her diuretics. I had talked to the emergency of [place] after talking to Dr. Rodriguez here as we do not have the specialist to care for this patient here at [place] Dr. Dent who is on-call is a microwave radio technician and he told me that if she got sent to the emergency department that she certainly would be sent home and that they were to stop her diuretics at that time with that she was on spironolactone however after reviewing her medication list and talking the patient she is not on any diuretics as stated above. I called Dr. Dent back and he said to stop her Crestor and her PPI this has been communicated with the patient. At this point the patient's sister came in and told me that the patient has been stubborn and not taking any of her medications and has been this way her whole life and this is why she is not listed for the transplant at the moment and why they are not going to consider keeping her on the transplant list if she is not socially ready. The patient understands and agrees to this. They are to the point where they feel like they may not be able to care for her at home but the patient is also not willing to go to hospice. Cannot admit the patient here as we do not have the services and as discussed earlier the patient would be discharged home if she went to as she would not have an admitting diagnosis per their discussion. Therefore after talking to Dr. Rodriguez further he will order an outpatient creatinine we will follow-up on this and call them tomorrow and Dr. Dent also stated that they will follow-up with her in the acute kidney injury clinic on Tuesday or Tuesday and she will also be seen for abnormal paracentesis on . The patient family are all in agreement with this plan. I have advised that they return to the [facility] emergency department any significant worsening of her symptoms and Dr. Quinones will follow-up on her creatinine tomorrow. Procedures <Carmel Rodriguez MD - Last Filed: 06/23/25 22:14> Paracentesis Time Out Performed: Yes Local Anesthetic: lidocaine 1% and with epi Amount of anesthesia used (mL): 10 Fluid: cloudy and bloody Post Procedure Exam: awake, alert, normal BP and normal HR Patient Tolerated Procedure: well and other (Small amount of bleeding point pressure held) Complications: other (Of note this was done under direct ultrasound visual guidance and images were saved) Miscellaneous Procedure Procedure Performed: Limited abdominal ultrasound Indication evaluation for ascites for marking for paracentesis Findings patient had small pockets on the right but maximal pocket on the left lower quadrant was marked bowel with a depth of about 5 cm subcutaneous tissue was marked around 2-1/2 cm. Impression as above. Images were saved. Critical Care <Kandice Maldonado APRN - Last Filed: 06/23/25 21:33> Critical Care Time Critical Care Time: No <Carmel Rodriguez MD - Last Filed: 06/23/25 22:14> Critical Care Time Critical Care Time: Yes Attestation: On 06/23/25, the high probability of a clinically significant, sudden or life threatening deterioration of the following system(s) required my full and direct attention, intervention and personal management. The time I documented below is in addition to time spent performing reported procedures but includes the following listed in this critical care notation. Total Time Total Critical Care Time: 65
--- OUTSIDE RECORDS SUMMARY | 2025-06-23 17:47 | XMS_ITS | Encounter Summary ---
Author Organization [employer] ([place], [place], [place], [place]) Address [address] [place] [address] Care Team Providers Care Web Operations Lead Name Role Phone Taina Lyles ADRI Primary Care Provider Encounter Details Date Type Department Care Team (Late st Contact Info) Description 09/09/2020 Transcribed Document [facility] [place] [address] [place] [address] ProviderWilliam MD [address] [place], [place] [address] Social History Tobacco Use Types Packs/Day Years Used Date Smoking Tobacco: Never Assessed Comments Unknown Sex and Gender Information Value Date Recorded Sex Assigned at Not on file Legal Sex Female 12:21 PM CDT Gender Identity Not on file Sexual Orientation Not on file documented as of this encounter Miscellaneous Notes * Cerner Conversion Note - William Reyes MD - 09/09/2020 5:30 AM CDT ED Event Note Entered On: 09/09/2020 5:59 EDT Performed On: 09/09/2020 5:30 EDT by Richelle Rust Rn ED Event Note ED Event Date/Time : 09/09/2020 5:30 EDT ED Description of Event : recieved report from Macey NICK. Pt in hospital bed for comfort. Pt resting no distress noted Richelle Rust Rn - 09/09/2020 5:58 EDT Electronically signed by Maddie Meyers Conversion Internal Communications Specialist Cerner at 03/07/2023 10:00 AM CDT documented in this encounter Plan of Treatment Not on file documented as of this encounter Visit Diagnoses Not on filedocumented in this encounter Care Teams Web Operations Lead Relationship Specialty Start Date End Date Taina Lyles, SLITTER CREASER SLOTTER OPERATOR [address] [place] [address] PCP - General Nurse Practitioner 06/15/23 documented as of this encounter
--- OUTSIDE RECORDS SUMMARY | 2025-06-23 17:47 | XMS_ITS | Encounter Summary ---
Author Organization [employer] ([place], [place], [place], [place]) Address [address] [place] [address] Care Team Providers Care Rotary Operator Name Role Phone Taina Lyles ADRI Primary Care Provider [phone] Encounter Details Date Type Department Care Team (Late st Contact Info) Description 07/01/2021 Transcribed Document [facility] Family Medicine [address] [place] [address] ProviderWilliam MD [address], [place] [address] Social History Tobacco Use Types Packs/Day Years Used Date Smoking Tobacco: Never Assessed Comments Unknown Sex and Gender Information Value Date Recorded Sex Assigned at Not on file Legal Sex Female 12:21 PM CDT Gender Identity Not on file Sexual Orientation Not on file documented as of this encounter Miscellaneous Notes * Cerner Conversion Note - William Reyes MD - 07/01/2021 12:13 PM CDT ED Triage Entered On: 07/01/2021 12:33 EDT Performed On: 07/01/2021 12:30 EDT by LANG WOOD RN ED Triage Across the Room Chief Complaint : SENT PER PCP FOR BP PROBLEMS, PT C/O SOME INTERMITTENT SOA Triage Date/Time : 07/01/2021 12:30 EDT LANG WOOD RN - 07/01/2021 12:30 EDT DCP GENERIC CODE Tracking Acuity : 3 - Urgent Tracking Group : [facility] LANG WOOD RN - 07/01/2021 12:30 EDT Mode of Arrival : Ambulatory Transported to ED by : Private vehicle To Room Via : Ambulate Accompanied By : Unaccompanied ED Vital Signs : Document Height & Weight : Document ED Allergies : Document ED Reason for Visit : Document Tetanus Immunization : Unknown LANG WOOD RN - 07/01/2021 12:30 EDT Infectious Disease History Has the patient ever been tested for COVID-19? : No, Patient stated Does patient have symptoms of COVID-19? : No COVID19 Screening : No Experiencing Infectious Disease Symptoms : No symptoms Physical contact outside [place] in the last 30 days : No Infectious Disease History : Chicken pox/Shingles, Mumps Tuberculosis Symptoms : None LANG WOOD RN - 07/01/2021 12:30 EDT Vital Signs ED Temperature Mode : Fahrenheit Temperature, Fahrenheit : 99 Deg F Clinical Temperature, C : 37.2 Deg C Oxygen Therapy Mode : Room air Peripheral Pulse Rate : 113 bpm (HI) Respiratory Rate : 18 Breaths/Min Systolic Blood Pressure : 128 mmHg Diastolic Blood Pressure : 62 mmHg Oxygen Saturation : 95 % LANG WOOD RN - 07/01/2021 12:30 EDT Allergy (As Of: 07/01/2021 12:33:22 EDT) Allergies (Active) No Known Allergies Estimated Onset Date: Unspecified ; Created By: CARINA LUZ; Reaction Status: Active ; Category: Drug ; Substance: No Known Allergies ; Type: Allergy ; Updated By: CARINA LUZ; Reviewed Date: 07/01/2021 12:32 EDT Diagnosis Control ED (As Of: 07/01/2021 12:33:22 EDT) Problems(Active) ADD (attention deficit disorder) (SNOMED CT :5021193192 ) Name of Problem: ADD (attention deficit disorder) ; Recorder: AZALEA ALBRIGHT RN; Confirmation: Confirmed ; Classification: Patient Stated ; Code: [id number] ; Contributor System: Figure 8 Surgical ; Last Updated: 01/11/2017 14:23 EST ; Life Cycle Date: 01/11/2017 ; Life Cycle Status: Active ; Vocabulary: SNOMED CT Anxiety (SNOMED CT :9683677418 ) Name of Problem: Anxiety ; Recorder: AAZLEA ALBRIGHT RN; Confirmation: Confirmed ; Classification: Patient Stated ; Code: [id number] ; Contributor System: PowerChart ; Last Updated: 01/11/2017 14:22 EST ; Life Cycle Date: 01/11/2017 ; Life Cycle Status: Active ; Vocabulary: SNOMED CT Arthritis (SNOMED CT :0500628 ) Name of Problem: Arthritis ; Recorder: LANNY BELLO RN; Confirmation: Confirmed ; Classification: Medical ; Code: 5909483 ; Contributor System: Figure 8 Surgical ; Last Updated: 09/11/2015 14:10 EDT ; Life Cycle Date: 09/11/2015 ; Life Cycle Status: Active ; Vocabulary: SNOMED CT bilateral knee pain (SNOMED CT :84261819 ) Name of Problem: bilateral knee pain ; Recorder: LANNY BELLO RN; Confirmation: Confirmed ; Classification: Medical ; Code: 14726577 ; Contributor System: DSI MET-TECHChart ; Last Updated: 08/12/2017 10:18 EDT ; Life Cycle Date: 09/11/2015 ; Life Cycle Status: Active ; Vocabulary: SNOMED CT Chronic depression (SNOMED CT :207909836 ) Name of Problem: Chronic depression ; Recorder: AZALEA ALBRIGHT RN; Confirmation: Confirmed ; Classification: Patient Stated ; Code: 478491984 ; Contributor System: DSI MET-TECHChart ; Last Updated: 01/11/2017 14:23 EST ; Life Cycle Date: 01/11/2017 ; Life Cycle Status: Active ; Vocabulary: SNOMED CT Diabetes (SNOMED CT :583157963 ) Name of Problem: Diabetes ; Recorder: LANNY BELLO RN; Confirmation: Confirmed ; Classification: Medical ; Code: 606819515 ; Contributor System: PowerChart ; Last Updated: 09/11/2015 14:10 EDT ; Life Cycle Date: 09/11/2015 ; Life Cycle Status: Active ; Vocabulary: SNOMED CT GERD (gastroesophageal reflux disease) (SNOMED CT :446698388 ) Name of Problem: GERD (gastroesophageal reflux disease) ; Recorder: LANNY BELLO RN; Confirmation: Confirmed ; Classification: Medical ; Code: 650023431 ; Contributor System: Figure 8 Surgical ; Last Updated: 09/11/2015 14:11 EDT ; Life Cycle Date: 09/11/2015 ; Life Cycle Status: Active ; Vocabulary: SNOMED CT H/O syncope (SNOMED CT :5557991423 ) Name of Problem: H/O syncope ; Recorder: AZALEA ALBRIGHT RN; Confirmation: Confirmed ; Classification: Patient Stated ; Code: 2761729191 ; Contributor System: PowerChart ; Last Updated: 01/11/2017 14:29 EST ; Life Cycle Date: 01/11/2017 ; Life Cycle Status: Active ; Vocabulary: SNOMED CT History of recurrent UTIs (SNOMED CT :989547727 ) Name of Problem: History of recurrent UTIs ; Recorder: AZALEA ALBRIGHT RN; Confirmation: Confirmed ; Classification: Patient Stated ; Code: 140538353 ; Contributor System: PowerChart ; Last Updated: 01/11/2017 14:22 EST ; Life Cycle Date: 01/11/2017 ; Life Cycle Status: Active ; Vocabulary: SNOMED CT Hyperlipidemia (SNOMED CT :14100456 ) Name of Problem: Hyperlipidemia ; Recorder: LANNY BELLO RN; Confirmation: Confirmed ; Classification: Medical ; Code: 37111240 ; Contributor System: PowerChart ; Last Updated: 09/11/2015 14:10 EDT ; Life Cycle Date: 09/11/2015 ; Life Cycle Status: Active ; Vocabulary: SNOMED CT Renal insufficiency (SNOMED CT :5010479448 ) Name of Problem: Renal insufficiency ; Recorder: AZALEA ALBRIGHT RN; Confirmation: Confirmed ; Classification: Patient Stated ; Code: 3521621074 ; Contributor System: PowerChart ; Last Updated: 01/11/2017 14:22 EST ; Life Cycle Date: 01/11/2017 ; Life Cycle Status: Active ; Vocabulary: SNOMED CT right carpal tunnel (SNOMED CT :48042649 ) Name of Problem: right carpal tunnel ; Recorder: LANNY BELLO RN; Confirmation: Confirmed ; Classification: Medical ; Code: 45640739 ; Contributor System: PowerChart ; Last Updated: 09/02/2017 10:07 EDT ; Life Cycle Date: 09/11/2015 ; Life Cycle Status: Active ; Vocabulary: SNOMED CT Right tennis elbow (SNOMED CT :1269668513 ) Name of Problem: Right tennis elbow ; Recorder: LANNY BELLO RN; Confirmation: Confirmed ; Classification: Medical ; Code: 3734076614 ; Contributor System: PowerChart ; Last Updated: 05/21/2019 14:33 EDT ; Life Cycle Status: Active ; Vocabulary: SNOMED CT ; Comments: 09/11/2015 14:11 - LANNY BELLO RN recent diagnosis RLS (restless legs syndrome) (SNOMED CT :18239725 ) Name of Problem: RLS (restless legs syndrome) ; Recorder: LANNY BELLO RN; Confirmation: Confirmed ; Classification: Medical ; Code: 60818933 ; Contributor System: Figure 8 Surgical ; Last Updated: 09/11/2015 14:33 EDT ; Life Cycle Date: 09/11/2015 ; Life Cycle Status: Active ; Vocabulary: SNOMED CT sleep apnea with Cpap (SNOMED CT :621200746 ) Name of Problem: sleep apnea with Cpap ; Recorder: LANNY BELLO RN; Confirmation: Confirmed ; Classification: Medical ; Code: 546505631 ; Contributor System: Figure 8 Surgical ; Last Updated: 08/12/2017 11:32 EDT ; Life Cycle Date: 09/11/2015 ; Life Cycle Status: Active ; Vocabulary: SNOMED CT Stress incontinence (SNOMED CT :058468564 ) Name of Problem: Stress incontinence ; Recorder: LANNY BELLO RN; Confirmation: Confirmed ; Classification: Medical ; Code: 523849968 ; Contributor System: Figure 8 Surgical ; Last Updated: 09/11/2015 14:12 EDT ; Life Cycle Date: 09/11/2015 ; Life Cycle Status: Active ; Vocabulary: SNOMED CT Diagnoses(Active) Medical screening exam Date: 07/01/2021 ; Diagnosis Type: Reason For Visit ; Confirmation: Complaint of ; Clinical Dx: Medical screening exam ; Classification: Medical ; Clinical Service: Emergency medicine ; Code: PNED ; Probability: 0 ; Diagnosis Code: [id number] ED Height and Weight Height Source : Stated Height Entry Format : [place] Height, Feet : 5 ft(Converted to: 152 cm, 60 Inch) Height, Inches : 6 Inch(Converted to: 0 ft 6 Inch, 15.24 cm) Clinical Height : 167.64 cm Weight Source, ED : Standing scale Weight Entry Format : [place] Weight, Pounds : 203 lb Clinical Dosing Weight : 92.27 kg Body Surface Area (BSA) : 2.01 m2 Body Mass Index : 32.8 kg/m2 (HI) [place] Body Weight (IBW) : 58.88 kg LANG WOOD RN - 07/01/2021 12:30 EDT documented in this encounter Plan of Treatment Not on file documented as of this encounter Visit Diagnoses Not on filedocumented in this encounter Care Teams Rotary Operator Relationship Specialty Start Date End Date Taina Lyles, ADRI [address] [place] [address] PCP - General Nurse Practitioner 06/15/23 documented as of this encounter
--- OUTSIDE RECORDS SUMMARY | 2025-06-23 17:47 | XMS_ITS | Encounter Summary ---
Author Organization [employer] ([place], [place], [place], [place]) Address [address] [place] [address] Care Team Providers Care Hand Hide Stretcher Name Role Phone Taina Lyles Carmel RUSH Primary Care Provider [phone] Encounter Details Date Type Department Care Team (Late st Contact Info) Description 09/08/2020 Transcribed Document [facility] Family Medicine [address] [place] [address] ProviderWilliam MD [address] [place], [place] [id number] Social History Tobacco Use Types Packs/Day Years Used Date Smoking Tobacco: Never Assessed Comments Unknown Sex and Gender Information Value Date Recorded Sex Assigned at Not on file Legal Sex Female 12:21 PM CDT Gender Identity Not on file Sexual Orientation Not on file documented as of this encounter Miscellaneous Notes * Cerner Conversion Note - William Reyes MD - 09/08/2020 3:25 PM CDT [place] Suicide Severity Rating Scale (C-SSRS) Entered On: 09/08/2020 16:35 EDT Performed On: 09/08/2020 16:31 EDT by Angelina Cuello RN [place] Suicide Severity Rating Scale (C-SSRS) CSSRS Past Month Wish to be : No CSSRS Past Month Suicidal Thoughts : No CSSRS Lifetime Suicide Behavior : No Suicide Severity Rating Score : 0 Suicide Severity Rating : No Additional Care Required at this time Angelina Cuello RN - 09/08/2020 16:31 EDT documented in this encounter Plan of Treatment Not on file documented as of this encounter Visit Diagnoses Not on filedocumented in this encounter Care Teams Hand Hide Stretcher Relationship Specialty Start Date End Date Taina Lyles, CONSTRUCTION SKILLS TEACHER [address] [place] [address] PCP - General Nurse Practitioner 06/15/23 documented as of this encounter
--- OUTSIDE RECORDS SUMMARY | 2025-06-23 17:47 | XMS_ITS | Encounter Summary ---
Author Organization [employer] ([place], [place], [place], [place]) Address [address] [place] [address] Care Team Providers Care Massage Coordinator Name Role Phone Taina Lyles ADRI Primary Care Provider [phone] Encounter Details Date Type Department Care Team (Late st Contact Info) Description 05/01/2019 Transcribed Document [facility] Family Medicine [address] [place] [address] ProviderWilliam MD [address] [place] [address] Social History Tobacco Use Types Packs/Day Years Used Date Smoking Tobacco: Never Assessed Comments Unknown Sex and Gender Information Value Date Recorded Sex Assigned at Not on file Legal Sex Female 12:21 PM CDT Gender Identity Not on file Sexual Orientation Not on file documented as of this encounter Miscellaneous Notes * Cerner Conversion Note - William Reyes MD - 05/01/2019 4:40 PM CDT DATE OF SERVICE: 05/01/2019 SLEEP MEDICINE FOLLOWUP HISTORY OF PRESENT ILLNESS: Ms. Zimmer is seen in followup, last here July 10, 2018. She was ordered a new CPAP machine to replace her very old one. She was given a BiPAP machine with a fixed pressure of 14 cm inspiratory pressure and 8 cm expiratory pressure, which was not what was ordered. She has not been happy with this pressure finding that there is air leak from the mask, she feels dry in the nose and mouth, reports some nasal obstruction and says she is not getting enough air. Despite this, she has used it on 28 of the last 30 days averaging 6 hours and 36 minutes per night. Respiratory disturbances are slightly increased at 8.2 per hour. She reports continued moderate sleepiness and scores 16/24 in the [place] Sleepiness Scale. She does have insomnia for which she is using trazodone with good benefit. OTHER MEDICAL PROBLEMS: Include diabetes mellitus, obesity, and depression. MEDICATIONS: 1. Azelastine. 2. Magnesium. 3. Bupropion. 4. Venlafaxine. 5. Multivitamin. 6. Ranitidine. 7. Carvedilol. 8. Oxybutynin. 9. Plaquenil. 10. Humulin R. 11. Baclofen. 12. [place]. 13. Prednisone. 14. Atorvastatin. 15. Humulin. 16. Nitrostat. PHYSICAL EXAMINATION: GENERAL: Ms. Zmimer is a pleasant woman, in no distress. VITAL SIGNS: Weight is down 4 pounds to 205 pounds with a body mass index of 33, blood pressure 108/60, pulse 62, respirations 16, oxygen saturation 95%. HEAD AND NECK: Exam shows moderate left-sided obstruction to nasal airflow. Right side appeared normal. There was no bleeding. The oral exam showed a normal tongue. Soft palate and uvula with Mallampati class I appearance. The skin around the nose and mouth was intact. MENTAL STATUS: She was awake, alert, and cooperative. ASSESSMENT: 1. Obstructive sleep apnea syndrome. She did receive a new machine which is a BiPAP. She is having trouble tolerating this and did better with auto CPAP. 2. Insomnia, doing well with trazodone. 3. Obesity with some weight loss since last seen. 4. Diabetes mellitus. RECOMMENDATIONS: 1. We will change her BiPAP to an auto BiPAP setting with an inspiratory pressure maximum of 16 cm and expiratory pressure minimum of 6 cm and a pressure support of 2-4 cm. She will try this tonight and will call back if she has any complaints about her CPAP pressure. 2. Continue with trazodone. 3. Continue with weight loss. 4. We will plan to follow up in one year and sooner if needed. Amol Villarreal M.D. Dict: 05/01/2019 16:40:22 Trans: 05/02/2019 01:16:58 CC1: Amol Villarreal M.D. CC2: Dr. Wilma Howard documented in this encounter Plan of Treatment Not on file documented as of this encounter Visit Diagnoses Not on filedocumented in this encounter Care Teams Massage Coordinator Relationship Specialty Start Date End Date Taina Lyles, GREEN BELT [address] [place] [address] PCP - General Nurse Practitioner 06/15/23 documented as of this encounter
--- OUTSIDE RECORDS SUMMARY | 2025-06-23 17:47 | XMS_ITS | Encounter Summary ---
Author Organization [employer] ([place], [place], [place], [place]) Address [address] [place] [address] Care Team Providers Care Customer Service Advocate Name Role Phone Taina Lyles ADRI Primary Care Provider [phone] Encounter Details Date Type Department Care Team (Late st Contact Info) Description 09/08/[address] [facility] Family Medicine [address] [place] [address] ProviderWilliam MD [address] [place], [place] [address] Social History Tobacco Use Types Packs/Day Years Used Date Smoking Tobacco: Never Assessed Comments Unknown Sex and Gender Information Value Date Recorded Sex Assigned at Not on file Legal Sex Female 12:21 PM CDT Gender Identity Not on file Sexual Orientation Not on file documented as of this encounter Miscellaneous Notes * Cerner Conversion Note - William Reyes MD - 09/08/2020 6:01 PM CDT Pain Assessment Entered On: 09/09/2020 7:25 EDT Performed On: 09/09/2020 6:00 EDT by Richelle Rust Rn Intervention Information: acetaminophen-HYDROcodone Performed by ARABELLA BONE RN on 09/09/2020 05:08:00 EDT acetaminophen-HYDROcodone,1Tab Oral,Pain (Moderate 4-6) Pain Assessment Pain Assessment : Follow-up assessment Pain Scale Used : 0-10 Scale Location : Chest, midsternal Onset : Acute Richelle Rust Rn - 09/09/2020 7:25 EDT Pain Scale Intensity : 2 Richelle Rust Rn - 09/09/2020 7:25 EDT Image 4 - Images currently included in the form version of this document have not been included in the text rendition version of the form. documented in this encounter Plan of Treatment Not on file documented as of this encounter Visit Diagnoses Not on filedocumented in this encounter Care Teams Customer Service Advocate Relationship Specialty Start Date End Date Taina Lyles, SMALL PACKAGE AND BUNDLE SORTER CLERK [address] [place] [address] PCP - General Nurse Practitioner 06/15/23 documented as of this encounter
--- OUTSIDE RECORDS SUMMARY | 2025-06-23 17:47 | XMS_ITS | Encounter Summary ---
Author Organization [employer] ([place], [place], [place], [place]) Address [address] [place] [address] Care Team Providers Care Phlebotomy Tech Name Role Phone Taina Lyles ADRI Primary Care Provider [phone] Encounter Details Date Type Department Care Team (Late st Contact Info) Description 07/01/2021 Transcribed Document [facility] [place] [address] [place] [address] ProviderWilliam MD [address], [place] [address] Social History Tobacco Use Types Packs/Day Years [...] Reyes MD - 07/01/2021 12:13 PM CDT [place] Suicide Severity Rating Scale (C-SSRS) Entered On: 07/01/2021 17:31 EDT Performed On: 07/01/2021 17:31 EDT by Medina Lai RN [place] Suicide Severity Rating Scale (C-SSRS) CSSRS Past Month Wish to be : No CSSRS Past Month Suicidal Thoughts : No CSSRS Lifetime Suicide Behavior : No Suicide Severity Rating Score : 0 Suicide Severity Rating : No Additional Care Required at this time Medina Lai RN - 07/01/2021 17:31 EDT documented in this encounter Plan of Treatment Not on file documented as of this encounter Visit Diagnoses Not on filedocumented in this encounter Care Teams Phlebotomy Tech Relationship Specialty Start Date End Date Taina Lyles, CREDIT CARD ANALYST [address] [place] [address] PCP - General Nurse Practitioner 06/15/23 documented as of this encounter
--- OUTSIDE RECORDS SUMMARY | 2025-06-23 17:47 | XMS_ITS | Encounter Summary ---
Author Organization [employer] ([place], [place], [place], [place]) Address [address] [place] [address] Care Team Providers Care Ruffler Name Role Phone Taina Lyles APRN Primary Care Provider [phone] Encounter Details Date Type Department Care Team (Late st Contact Info) Description 01/24/2019 Transcribed Document [facility] [place] [address] ProviderWilliam MD [address] [place] [id number] Social History Tobacco Use Types Packs/Day Years Used Date Smoking Tobacco: Never Assessed Comments Unknown Sex and Gender Information Value Date Recorded Sex Assigned at Not on file Legal Sex Female 12:21 PM CDT Gender Identity Not on file Sexual Orientation Not on file documented as of this encounter Miscellaneous Notes * Cerner Conversion Note - William Reyes MD - 01/24/2019 7:43 PM QUALITY CONTROLLER [address] [address] DISCHARGE SUMMARY PATIENT IDENTIFICATION: MONIKA ZIMMER (Female - 1960) ACCOUNT / UNIT NUMBER: [id number] / [id number] PRIMARY CARE PHYSICIAN: ERYN HOWARD APRN PATIENT LOCATION: [facility] 300-11 ADMIT DATE / TIME: 01/23/19 1051 DISCHARGE DATE / TIME: 01/24/19 1815 DICTATED: 01/24/19 1443 by DANIEL DICKERSON TRANSCRIBED: 01/24/19 1514 by AMINA IMPORTED: 01/25/19 0743 CC: ERYN HOWARD APRN; DANIEL DICKERSON PA-C; GLENN LAWRENCE\R\ [employer] Original Dictated By: MARIA GUADALUPE Hernandez For Glenn Lawrence MD ADMITTING AND DISCHARGING PHYSICIAN: Glenn Lawrence MD CONSULTING PHYSICIAN: Rory Villarreal MD PRIMARY CARE PHYSICIAN: Eryn Howard APRN DISCHARGE DIAGNOSES: 1. Stress urinary incontinence with failed conservative measures. She is status post pubovaginal sling without complications. She has been cleared by Dr. Villarreal at discharge. Continue analgesics, antiemetics, and prophylactic antibiotic therapy on discharge. No heavy lifting. No strenuous activity. Continue Black catheter and to follow up with Dr. Villarrela. Patient's pain is under adequate control for discharge. 2. Type 2 diabetes, on sliding scale protocol this admission. Metformin and U-500 could be resumed on discharge. Continue [employer] diet. 3. Coronary artery disease/dyslipidemia, on statin, aspirin, and beta-bam therapy. Aspirin on hold until followup with Dr. Villarreal. Otherwise, continue home medical management. 4. Anxiety/depression. Continue home medical management. 5. Rheumatoid arthritis, continue Plaquenil now. 6. Code status, FULL. 7. Deep venous thrombosis prophylaxis, sequential compression devices. PHYSICAL EXAMINATION AT DISCHARGE: GENERAL: Pleasant 58-year-old female, seen today, lying in bed, in no distress. LUNGS: Clear. HEART: Regular rate and rhythm. ABDOMEN: Soft, mildly distended, nontender with normoactive bowel sounds. : Black catheter in place with clear yellow urine. DISCHARGE CONDITION: Stable. DISPOSITION: Discharged home. DISCHARGE INSTRUCTIONS: Patient may shower. No heavy lifting. No strenuous activity. Continue to follow up with Dr. Villarreal next week. Black to ankle bag to gravity on discharge. OPERATION/PROCEDURES PERFORMED: Pubovaginal sling, January 23, 2019 without intra or postoperative complications. DISCHARGE MEDICATIONS: 1. Tylenol 650 q.4 h. as needed. 2. [place] 10 mg 1-2 tabs q.4 h. as needed. 3. Trazodone 50-100 mg q.h.s. as needed. 4. NitroQuick 0.4 mg sublingual as needed for chest pain. 5. Zofran 8 mg q.6 h. as needed. 6. Docusate 100 mg b.i.d. 7. Cipro 500 mg b.i.d. 8. TriCor 160 mg daily. 9. Baclofen 10 mg daily. 10. Coreg 3.125 mg b.i.d. 11. Plaquenil 200 mg daily. 12. Azo 100 mg daily. 13. Wellbutrin XL 300 mg daily. 14. Effexor XR 150 mg daily. 15. Lipitor 80 mg daily. 16. Lovaza 1g daily. 17. Magnesium 400 mg daily. 18. Myrbetriq 50 mg q.h.s. 19. Premarin topically 0.625 mg q.h.s. intravaginally. 20. Zyrtec 10 mg daily. 21. Metformin 1000 mg b.i.d. 22. Oxybutynin 10 mg daily. 23. Zantac 150 mg b.i.d. 24. Zofran ODT 8 mg q.6 h. as needed. MEDICATIONS HELD OR DISCONTINUED: 1. Aspirin. 2. Motrin. HOSPITAL COURSE: This is a 58-year-old female with longstanding history of stress urinary incontinence, failed conservative medical management. Followed by Dr. Villarreal as an outpatient, elected to undergo a pubovaginal sling. Patient was directly admitted yesterday for such procedure. She tolerated surgery without intra or postoperative complications. Postoperatively, she was admitted to the hospitalist service for continued medical management, specifically for diabetes. Patient's brief overnight hospitalization relatively uneventful. We discontinued Motrin on arrival. Patient's aspirin was placed on held, but home medical management was resumed for the most part, otherwise. She was on sliding scale overnight. The patient's pain has been under adequate control. She has remained afebrile and hemodynamically stable. There has been no adverse events. Today, she is ambulatory. Pain is under fair control. She has been cleared for discharge from [facility]. The patient is medically stable for discharge home. On discharge, home medications have been resumed with the exception of aspirin, which will be on hold until followup with Dr. Villarreal. I have advised against routine Motrin use. The patient can continue p.r.n. The patient will go home on Cipro as a prophylactic antibiotic. Continue analgesics, antiemetics along with Colace. The patient has been advised on signs and symptoms that warrant immediate medical attention or return to the hospital. Otherwise, she may shower, no heavy lifting, no strenuous activity, and follow up with Dr. Villrareal next week for cath removal. The patient on discharge verbalized understanding and is agreeable. TIME SPENT: 30 minutes. Dictated By: DANIEL DICKERSON E-Signed By: AXEL/AMINA 1443 1514 [\R\ rep ct labl] [\R\ rep ct ivnm] documented in this encounter Plan of Treatment Not on file documented as of this encounter Visit Diagnoses Not on filedocumented in this encounter Care Teams Ruffler Relationship Specialty Start Date End Date Taina Lyles, STRINGING MACHINE OPERATOR [address] [place] [id number] PCP - General Nurse Practitioner 06/15/23 documented as of this encounter
--- OUTSIDE RECORDS SUMMARY | 2025-06-23 17:47 | XMS_ITS | Clinical Summary ---
Author Organization [facility] Address [address] [place] [address], [address] [place] [address] Care Team Providers Care Care Mgr Name Role Phone System, Referring Not In Primary Care Provider U navailable Allergies No known active allergies Medications HYDROcodone-caesar taminophen (NORCO) 5-325 MG per tablet Take 1 tablet by mouth every 6 hours as needed for Pain Active insulin regular (HUMULIN R) 100 UNIT/ML injection Inject 20 Units into the skin See Admin Instructions Pt will adjust dose according to accu check at time insulin is due Active gabapentin (NEURONTIN) 600 MG tablet Take 600 mg by mouth 3 times daily Active budesonide-form oterol (SYMBICORT) 160-4.5 MCG/ACT AERO Inhale 2 puffs into the lungs 2 times daily Active fenofibrate 160 MG tablet Take 160 mg by mouth daily Active cetirizine (ZYRTEC) 10 MG tablet Take 10 mg by mouth daily Active albuterol (PROVENTIL) (2.5 MG/3ML) 0.083% nebulizer solution Take 2.5 mg by nebulization every 6 hours as needed for Wheezing Active montelukast (SINGULAIR) 10 MG tablet Take 10 mg by mouth nightly Active rOPINIRole (REQUIP) 0.5 MG tablet Take 0.5 mg by mouth daily Pt takes 5 tabs nightly Active metFORMIN (GLUCOPHAGE) 1000 MG tablet Take 1,000 mg by mouth daily (with breakfast) Active pravastatin (PRAVACHOL) 40 MG tablet Take 40 mg by mouth daily Active venlafaxine (EFFEXOR-XR) 37.5 MG XR capsule Take 37.5 mg by mouth daily Active FLUoxetine (PROZAC) 20 MG capsule Take 20 mg by mouth daily Active aspirin 81 MG tablet Take 81 mg by mouth daily Active pantoprazole sodium (PROTONIX) 40 MG PACK packet Take 40 mg by mouth every morning (before breakfast) Active Multiple Vitamins-Minera ls (THERAPEUTIC MULTIVITAMIN-MA NERALS) tablet Take 1 tablet by mouth daily Active [place]-3 Fatty Acids (FISH OIL) 1000 MG CAPS Take 2,000 mg by mouth 2 times daily Active Calcium Citrate-Vitamin D (CALCIUM + D PO) Take by mouth 2 times daily Active Social History Tobacco Use Types Packs/Day Years Used Date Smoking Tobacco: Never Alcohol Use Standard Drinks/Week Comments Yes 0 (1 standard drink = 0.6 oz pur e alcohol) once every few months Comments Unknown Sex and Gender Information Value Date Recorded Sex Assigned at Not on file Legal Sex Female 1:33 PM EDT Gender Identity Not on file Sexual Orientation Not on file Last Filed Vital Signs Vital Sign Reading Time Taken Comments Blood Pressure 123/66 06/30/2016 4:00 PM EDT Pulse 65 06/30/2016 4:00 PM EDT Temperature - - Respiratory Rate - - Oxygen Saturation 96% 06/30/2016 4:00 PM EDT Inhaled Oxygen Concentration - - Weight - - Height - - Body Mass Index - - Plan of Treatment Not on file Care Teams Care Mgr Relationship Specialty Start Date End Date System, Referring Not In PCP - General 06/30/16
--- OUTSIDE RECORDS SUMMARY | 2025-06-23 17:47 | XMS_ITS | Encounter Summary ---
Author Organization Healthcare Address [address] [place] [address] Care Team Providers Care Django Developer Name Role Phone Lea Fernando Unavailable [phone] Rachel Ray CAUSTIC MIXER Unavailable [phone] Alvarez Zimmer MD Primary Care Provider [phone] Encounter Details Date Type Department Care Team (Latest Contact Info) Description 05/03/2025 Travel Social History Tobacco Use Types Packs/Day [...] often do you attend chur ch or yazidi services? Patient unable to answer 01/10/2025 Do you belong to any clubs o r organizations such as rastafarian groups, unions, fraternal or athletic groups, or [...] Recorded Patient Health Questionnaire-2 Score 2 04/10/2025 [facility] Occupat ional [...] any time in the past 12 m [facility], were you homeless or living [...] drink first t kennedy in the morning (EYE-PRACTICE MANAGER) to steady your nerves or to [...] Suicidal Behavior (Lifetime) No 2:49 PM EDT Glenn Neal RN documented as of this encounter Plan of Treatment Upcoming Encounters Date Type Department Care Team (Late st Contact Info) Description 06/27/2025 9:30 AM EDT Appointment [facility] [address] [place] [address] 06/27/2025 10:30 AM EDT Appointment [facility] [address] [place] [address] 07/04/2025 10:30 AM EDT Appointment [facility] [address] [place] [address] 07/04/2025 11:30 AM EDT Appointment [facility] [address] [place] [address] 07/09/2025 2:40 PM EDT Office Visit Professional [facility] [address], [address] [place] [address] Ar Dominique MD [address] [place] [address] 07/11/2025 10:30 AM EDT Appointment [facility] [address] [place] [address] 07/11/2025 11:30 AM EDT Appointment [facility] [address] [place] [address] 07/18/2025 10:30 AM EDT Appointment [facility] [address] [place] [address] 07/18/2025 11:30 AM EDT Appointment [facility] [address] [place] [address] 07/25/2025 10:30 AM EDT Appointment [facility] [address] [place] [address] 07/25/2025 11:30 AM EDT Appointment [facility] [address] [place] [address] 07/31/2025 9:00 AM EDT Office Visit [address] [address] Alvarez Zimmer MD [address] [place] [address] 08/20/2025 9:30 AM EDT Clinical Support [facility] [address] [place] [address] 08/20/2025 10:30 AM EDT Social Work [facility] [address] [place] [address] Deysi Ortega [place], [place] [phone] 08/20/2025 11:00 AM EDT Office Visit [facility] [address] [place] [address] Jude Duque MD [address] [place] [phone] 10/30/2025 1:20 PM EST [facility] [address] [place] [address] Sharif Moreno, DPNicole [address] [place] [address] documented as of this encounter [...] documented as of this encounter Care Teams Django Developer Relationship Specialty Start Date End Date Alvarez Zimmer MD [address] [place] [phone] PCP - General Family Medicine 12/07/24 Lea Fernando [address] [place] [address] Shoe Turner Endocrinology 08/29/24 Rachel Ray APRN [address] [place] [address] Nurse Practitioner Gastroenterology 09/24/24 documented as of this encounter
--- OUTSIDE RECORDS SUMMARY | 2025-06-23 17:47 | XMS_ITS | Encounter Summary ---
Author Organization [employer] ([place], [place], [place], [place]) Address [address] [place] [address] Care Team Providers Care Printing Supplies Sales Representative Name Role Phone Taina Lyles APRN Primary Care Provider [phone] Encounter Details Date Type Department Care Team (Late st Contact Info) Description 09/08/2020 Transcribed Document [facility] [place] [address] [place] [address] ProviderWilliam MD [address] [place], [place] [address] Social History Tobacco Use Types Packs/Day Years Used Date Smoking Tobacco: Never Assessed Comments Unknown Sex and Gender Information Value Date Recorded Sex Assigned at Not on file Legal Sex Female 12:21 PM CDT Gender Identity Not on file Sexual Orientation Not on file documented as of this encounter Miscellaneous Notes * Cerner Conversion Note - William Reyes MD - 09/08/2020 3:30 PM CDT Patient: MONIKA ZIMMER Age: 60 years Sex: Female : 1960 Associated Diagnoses: Chest pain Author: ESPERANZA KULKARNI MD Basic Information Time seen: Date & time 09/08/2020 15:30:00, Voice recognition / per diem physical therapist technology used for some documentation in this chart in attempt to mitigate substantial inefficiencies created by this electronic health record technology. As a result, there may be some typos and/or non-sensical language introduced into the chart that either are overlooked in editing/review and/or that I am unable to correct as patient care needs require me to prioritize my attention to bedside patient care rather than electronic documentation.. . History source: Patient. Arrival mode: Private vehicle. History limitation: None. Additional information: Chief Complaint from Nursing Triage Note : Chief Complaint 09/08/2020 15:26 EDT Chief Complaint Pt reports Discomfront in chest that began yesterday states tingling in left arm . History of Present Illness Ms. Zimmer, presents via POV to room #5, alone. She reports that yesterday she started having some left-sided chest discomfort that went to her left arm associated with some tingling sensations down to her fingers. She states that she took one of her heart pills and did not have any relief of her discomfort. Associated with some slight shortness of breath and nausea. She states that the pain last several hours and then spontaneously resolved over time. She was able to sleep but states that she was up every 2 hours just because of inability to sleep. Today she had been out doing some errands and had lunch and was helping her one of the family members with school work. She then started having discomfort in her chest going into her left arm associated with some shortness of breath. The pain is waxing and waning and is left breast region. The patient presents with chest pain. The onset was 1 days ago. The course/duration of symptoms is episodic: 2 total episodes and lasting 4 hour(s). Location: Left anterior chest. Radiating pain: left arm. The character of symptoms is heaviness. The degree at onset was moderate. The degree at maximum was moderate. The degree at present is moderate. The exacerbating factor is none. The relieving factor is none. Risk factors consist of hypertension, diabetes mellitus, obesity, hyperlipidemia and not family history of coronary artery disease. Prior episodes: angina. Therapy today None. Associated symptoms: shortness of breath, nausea, denies vomiting, denies diaphoresis, denies anxiety and denies palpitations. Additional history: See note above.. Review of Systems Constitutional symptoms: No fever, no chills, no weakness, no fatigue, no decreased activity. Skin symptoms: No jaundice, no rash, no pruritus, no abrasions, no petechiae. Eye symptoms: Vision unchanged. ENMT symptoms: No sore throat, no nasal congestion. Respiratory symptoms: Shortness of breath, no orthopnea, no cough. Cardiovascular symptoms: Chest pain, No palpitations, Gastrointestinal symptoms: Nausea, no abdominal pain, no vomiting, no diarrhea, no constipation, no rectal bleeding. Genitourinary symptoms: No dysuria, no hematuria, no vaginal bleeding, no vaginal discharge. Musculoskeletal symptoms: No back pain, no Muscle pain, no Joint pain. Neurologic symptoms: Tingling, no headache, no dizziness, no altered level of consciousness, no numbness, no weakness. Psychiatric symptoms: No anxiety, no depression. Endocrine symptoms: No polyuria, no polydipsia. Hematologic/Lymphatic symptoms: Bleeding tendency negative, bruising tendency negative, no petechiae. Allergy/immunologic symptoms: No recurrent infections, no impaired immunity. Health Status Allergies: Allergic Reactions (Selected) No Known Allergies. Medications: (Selected) Documented Medications Documented Calcium 600+D Plus Minerals: 2 tabs, Oral, Daily, 0 Refill(s) Effexor XR 150 mg oral capsule, extended release: 1 Cap, Oral, Daily, 30 Cap, 0 Refill(s) Fish Oil 1000 mg oral capsule: 4 tabs, Oral, Daily, 0 Refill(s) HumuLIN R (Concentrated) 500 units/mL human recombinant subcutaneous solution: See Instructions, 23 Units SubCutaneous am & 22 units pm, 0 Refill(s) Imdur 30 mg oral tablet, extended release: 1 Tab, Oral, QAM, 30 Tab, 0 Refill(s) Tovey 7.5 mg-325 mg oral tablet: 1 Tab, Oral, Q4H, PRN: for pain, 0 Refill(s) Protonix 40 mg oral delayed release tablet: 1 Tab, Oral, Daily, 30 Tab, 0 Refill(s) Singulair 10 mg oral tablet: 1 Tab, Oral, QPM, 30 Tab, 0 Refill(s) Ventolin HFA 90 mcg/inh inhalation aerosol: 2 puffs, Inhalation, Q4H, PRN: Shortness of Breath, 0 Refill(s) buPROPion 100 mg/12 hours (SR) oral tablet, extended release: 1 Tab, Oral, Daily, 0 Refill(s) carvedilol 3.125 mg oral tablet: 1 Tab, Oral, BID, 60 Tab, 0 Refill(s) cetirizine 10 mg oral tablet: 1 Tab, Oral, Daily, 30 Tab, 0 Refill(s) docusate sodium 100 mg oral tablet: 1 Tab, Oral, BID, 0 Refill(s) fenofibrate 160 mg oral tablet: Oral, Daily, 0 Refill(s) gabapentin 600 mg oral tablet: See Instructions, 1 tab in am & 2 tabs at bedtime, 0 Refill(s) magnesium oxide 500 mg oral tablet: 1 Tab, Oral, Daily, 0 Refill(s) metFORMIN 1000 mg oral tablet: Oral, BID, 0 Refill(s) multivitamin: Oral, Daily, 0 Refill(s) pravastatin 80 mg oral tablet: 1 Tab, Oral, Daily, 30 Tab, 0 Refill(s) rOPINIRole 0.5 mg oral tablet: 5 Tab, Oral, At Bedtime, 0 Refill(s) traZODone 50 mg oral tablet: 2 Tab, Oral, At Bedtime, 0 Refill(s) triamcinolone 55 mcg/inh nasal spray: 2 sprays, Nostrils Both, Daily, 0 Refill(s). Immunizations: Up to date. Past Medical/ Family/ Social History Medical history Cardiovascular: angina, hyperlipidemia. Respiratory: asthma, sleep apnea. Endocrine: diabetes type 2, Obesity. Neurological: peripheral neuropathy. Psychiatric: depression. Musculoskeletal: chronic pain. Surgical history: choley. right breast biopsies (benign). hysterectomy. right foot surgery. carpal rupal right hand.. Family history: Reviewed as documented in chart. Social history: Social & Psychosocial Habits Alcohol 01/11/2017 Alcohol Use History, Social Habits Yes Alcohol Use Frequency Not used in over 3 months Tobacco 01/11/2017 Smoking Status Never smoker . Physical Examination Vital Signs Vital Signs/Vital Measures 09/08/2020 15:26 EDT Systolic Blood Pressure 119 mmHg Diastolic Blood Pressure 74 mmHg Temperature Source Temporal artery scanning Temperature Mode Fahrenheit Temperature, Fahrenheit 98.2 Deg F Clinical Temperature, C 36.8 Deg C Peripheral Pulse Rate 68 bpm Respiratory Rate 16 Breaths/Min Oxygen Saturation 98 % Oxygen Therapy Mode Room air . Measurements 09/08/2020 15:26 EDT Height Source Estimated Height Entry Format [place] Height/Length, [place] (ft) 5 ft Height/Length [place] 5 Inch CLINICALHEIGHT 165.1 cm [place] Body Weight 56.59 kg Weight Source, ED Critical estimated dosing weight Weight Entry Format [place] Weight [place] lb 190 lb CLINICALWEIGHT 86.36 kg Body Surface Area (BSA) 1.94 m2 Body Mass Index 31.7 kg/m2 HI . Oxygen saturation. General: Alert, no acute distress, well nourished, calm, cooperative, well hydrated, Ambulation status: With steady gait. Skin: Warm, dry, pink, intact, no pallor, no rash. Head: Normocephalic, atraumatic. Neck: Supple, trachea midline, no tenderness. Eye: Pupils are equal, round and reactive to light, extraocular movements are intact, normal conjunctiva. Ears, nose, mouth and throat: Oral mucosa moist. Cardiovascular: Regular rate and rhythm, No murmur, Normal peripheral perfusion, No edema. Respiratory: Lungs are clear to auscultation, respirations are non-labored, breath sounds are equal, Symmetrical chest wall expansion. Chest wall: No tenderness, No deformity. Back: Nontender, Normal range of motion. Musculoskeletal: Normal ROM, normal strength, no tenderness, no swelling. Gastrointestinal: Soft, Non distended, Normal bowel sounds, No organomegaly, Tenderness: Mild, epigastric. Genitourinary: Exam deferred. Neurological: Alert and oriented to person, place, time, and situation, No focal neurological deficit observed. Lymphatics: No lymphadenopathy. Psychiatric: Cooperative, appropriate mood & affect. Medical Decision Making Differential Diagnosis: Unstable angina, angina, pulmonary embolism, atypical chest pain. Documents reviewed: Emergency department nurses' notes, emergency department records, prior records. Orders Include Previous Orders (Selected) Inpatient Orders Ordered Blood Pressure: Cardiac Monitoring: ED milk deliverer: EKG: Place in Observation: Pulse Oximetry Continuous Monitoring: Saline Lock Insert: Completed .Automated Differential: CBC w/ Auto Diff: CMP Comprehensive Metabolic Panel: CR Chest 1 Vw Portable: D Dimer Quantitative: ED Adult Fall Risk Assessment: ED Adult Triage: ED C-SSRS: ED Clinical Reconciliation: Normal Saline Bolus: 1,000 mL, 100 mL/Hr, IV Piggyback, 1-Time Normal Saline Flush: 10 mL, IV Push, 1-Time, PRN: Other (See Comment) ProBNP: Troponin I Ultra: Zofran: 4 mg, IV Push, 1-Time aspirin: 324 mg, Chew, 1-Time morphine: 4 mg, IV Push, 1-Time. Electrocardiogram: Time 09/08/2020 15:43:00, rate 64, normal sinus rhythm, Previous EKG available No changes, Interpretation by Emergency Physician Interpreted by me contemporaneously with care, within normal limits, no ischemic changes. Results review: Lab results : Lab Results 09/08/2020 16:12 EDT Sodium Level 141 mmol/L Potassium Level 3.8 mmol/L Chloride Level 106 mmol/L Carbon Dioxide Level 27 mmol/L Anion Gap 12 Glucose Level 99 mg/dL Blood Urea Nitrogen 16 mg/dL Creatinine Level 1.03 mg/dL HI eGFR >60 mL/min/1.73m2 eGFR NonAfrican 55 mL/min/1.73m2 LOW Bun/Creatinine 15.5 Calcium Level 9.5 mg/dL Protein Total 8.0 Gram/dL Albumin Level 3.7 Gram/dL Globulin 4.3 Gram/dL A/G Ratio 0.9 LOW Bilirubin Total 0.5 mg/dL Alk Phos 113 Units/Liter AST 49 Units/Liter HI ALT 39 Units/Liter Troponin I Ultra 0.025 ng/mL ProBNP 90 pg/mL WBC 9.1 K/uL RBC 4.60 Million/uL Hgb 13.7 Gram/dL Hct 41.8 % MCV 90.9 fL MCH 29.8 pg MCHC 32.8 Gram/dL Platelet Count 151 K/uL LOW MPV 10.9 fL RDW 13.2 % Neut % 45.7 % Neut # 4.17 K/uL Lymph % 41.0 % Lymph # 3.73 K/uL [place] % 9.5 % [place] # 0.86 K/uL HI Eos % 2.9 % Eos # 0.26 K/uL Baso % 0.7 % Baso # 0.06 K/uL Slide Review No IG# 0 x10(3)/uL IG% 0 % D Dimer Quant 358 ng/mL . Chest X-Ray: Time reported 09/08/2020 16:15:00, no acute disease process, View: AP, interpretation by Emergency Physician. Procedure Critical care note Total time: 30 minutes spent engaged in work directly related to patient care and/ or available for direct patient care. Critical condition(s) addressed for impending deterioration include: cardiovascular. Management: bedside assessment, Interpretation (chest x-ray, electrocardiogram, blood pressure), Interventions hemodynamic management, Case review medical staffing coordinator. Performed by: self. Heart Score Heart History: Highly suspicious: Yes +2. EKG: Normal: Yes 0. Age: Greater than or equal to 65: Yes +2. Risk Factors: Risk Factors include: Hypercholesterolemia, Hypertension, Obesity, Greater than or equal to 3 risk factors: Yes +2. Troponin: 1 to 3 times normal limit: Yes +1. Scorin to 10: 50% risk of MACE. Impression and Plan Diagnosis Chest pain - Discharge, Emergency medicine, Medical Calls-Consults - 09/08/2020 17:13:00 , MADI GALAVIZ MD-CAR, Cardiology, phone call, recommends We will admit but call Daniel Snow to get admitted.. - 09/08/2020 17:17:00 , DANIEL SNOW PA, Cardiology, phone call, recommends Will write orders for ACS.. Plan Condition: Improved, Stable. Counseled: Patient, Regarding diagnosis, Regarding diagnostic results, Regarding treatment plan, Patient indicated understanding of instructions. documented in this encounter Plan of Treatment Not on file documented as of this encounter Visit Diagnoses Not on filedocumented in this encounter Care Teams Printing Supplies Sales Representative Relationship Specialty Start Date End Date Taina Lyles, ADRI [address] [place] [address] PCP - General Nurse Practitioner 06/15/23 documented as of this encounter
--- OUTSIDE RECORDS SUMMARY | 2025-06-23 17:47 | XMS_ITS | Encounter Summary ---
Author Organization [employer] ([place], [place], [place], [place]) Address [address] [place] [address] Care Team Providers Care Category Manager Name Role Phone Taina Lyles APRN Primary Care Provider [phone] Encounter Details Date Type Department Care Team (Late st Contact Info) Description 09/09/2020 Transcribed Document [facility] [place] [address] [place] [address] ProviderWilliam MD [address] [place] [address] Social History Tobacco Use Types Packs/Day Years Used Date Smoking Tobacco: Never Assessed Comments Unknown Sex and Gender Information Value Date Recorded Sex Assigned at Not on file Legal Sex Female 12:21 PM CDT Gender Identity Not on file Sexual Orientation Not on file documented as of this encounter Miscellaneous Notes * Cerner Conversion Note - William Reyes MD - 09/09/2020 12:00 PM CDT documented in this encounter Plan of Treatment Not on file documented as of this encounter Visit Diagnoses Not on filedocumented in this encounter Care Teams Category Manager Relationship Specialty Start Date End Date Taina Lyles APRN [address] [place], [place] [address], [place] [address] PCP - General Nurse Practitioner 06/15/23 documented as of this encounter
--- OUTSIDE RECORDS SUMMARY | 2025-06-23 17:47 | XMS_ITS | Encounter Summary ---
Author Organization [employer] ([place], [place], [place], [place]) Address [address] [place] [address] Care Team Providers Care Retail Support Specialist Name Role Phone Taina Lyles AUTHORIZATION REPRESENTATIVE Primary Care Provider [phone] Encounter Details Date Type Department Care Team (Late st Contact Info) Description 07/01/2021 Transcribed Document [facility] [place] [address] [place] [address] ProviderWilliam MD [address], [place] [address] Social History Tobacco Use Types Packs/Day Years [...] MD - 07/01/2021 12:13 PM CDT ED Assessment Entered On: 07/01/2021 17:34 EDT Performed On: 07/01/2021 17:32 EDT by [place] Lai RN ED Quick Look Assessment Level of Consciousness : Alert, Awake Affect/Behavior : Appropriate, Calm, Cooperative Orientation : Oriented x 4 Skin Temperature : Warm Skin Description : Normal for ethnicity [place] Lai RN - 07/01/2021 17:32 EDT ED General-Functional Assess Information Obtained From : Patient Preferred Communication Mode : Verbal Communication Barrier : None Primary Language : Rwandan Any Spiritual/Cultural Needs or Requests : No Currently in Unsafe Situation : No [place] Lai RN - 07/01/2021 17:32 EDT Social Habits Smoking Status : Never (less than 100 in lifetime; none in last 30 days) Smokeless Tobacco Status : Never Desires Tobacco Cessation Calc : 0 [place] Lai RN - 07/01/2021 17:32 EDT Social History (As Of: 07/01/2021 17:34:03 EDT) Tobacco: Smoking Status Never smoker. (Last Updated: 01/11/2017 14:31:04 EST by AZALEA ALBRIGHT, RN) Alcohol: Alcohol Use History Yes. Alcohol Use Frequency Not used in over 3 months. (Last Updated: 01/11/2017 14:31:20 EST by AZALEA ALBRIGHT, RN) EENT Assessment EENT Assessment WDL : [place] Huerta RN - 07/01/2021 17:32 EDT Cardiovascular ASMT, ED Cardiovascular Assessment WDL : WDJose with exceptions (Comment: pt states Im part of a medical research study. states that she was having BP issues so they referred her to be seen. no c/o chest pain currently [[place] Lai RN - 07/01/2021 17:32 EDT] ) [place] Lai RN - 07/01/2021 17:32 EDT Respiratory Respiratory Assessment WDL : [place] Huerta RN - 07/01/2021 17:32 EDT Gastrointestinal ED Gastrointestinal Assessment WDL : [place] Huerta RN - 07/01/2021 17:32 EDT Genitourinary Assessment, ED Genitourinary Assessment WDL : [place] Huerta RN - 07/01/2021 17:32 EDT Musculoskeletal Musculoskeletal Assessment WDL : [place] Huerta RN - 07/01/2021 17:32 EDT Integumentary Assessment Integumentary Assessment WDL : [place] Huerta RN - 07/01/2021 17:32 EDT Neurologic ASMT, ED Neurologic Assessment WDJose : [place] Huerta RN - 07/01/2021 17:32 EDT documented in this encounter Plan of Treatment Not on file documented as of this encounter Visit Diagnoses Not on filedocumented in this encounter Care Teams Retail Support Specialist Relationship Specialty Start Date End Date Taina Lyles, AUTHORIZATION REPRESENTATIVE [address] [place] [address] PCP - General Nurse Practitioner 06/15/23 documented as of this encounter
--- OUTSIDE RECORDS SUMMARY | 2025-06-23 17:47 | XMS_ITS | Encounter Summary ---
Author Organization Healthcare Address [address] [place] [address] Care Team Providers Care Rug Cleaner Name Role Phone Lea Fernando Unavailable [phone] Rachel Ray INTEGRATION SOFTWARE DEVELOPER Unavailable [phone] Alvarez Zimmer MD Primary Care Provider [phone] Tamera Isabel LPN Unavailable Unavailabl e Encounter Details Date Type Department Care Team (Latest Contact Info) Description 06/06/2025 Travel Social History Tobacco Use Types Packs/Day [...] How often do you attend [facility] or yarsanism services? Patient unable to answer 01/10/2025 Do you belong to any clubs o r organizations such as baptist groups, unions, fraternal or athletic groups, or [...] any time in the past [address] [facility], were you homeless or living in a [...] you attend chur ch or yarsanism services? Never 05/29/2025 Do you belong to any clubs o r organizations such as baptist groups, unions, fraternal or athletic groups, or [...] more drinks on one occasion? Never 06/05/2025 [facility] [...] any time in the past [address] [facility], were you homeless or living in a [...] drink first t kennedy in the morning (EYE-STARCHER AND TENTER RANGE FEEDER) to steady your nerves or to get [...] Appointment [facility] [address] [place] [address] 06/27/2025 10:30 AM EDT Appointment [facility] [address] [place] [address] 07/04/2025 10:30 AM EDT Appointment [facility] [address] [place] [address] 07/04/2025 11:30 AM EDT Appointment [facility] [address] [place] [address] 07/09/2025 2:40 PM EDT Office Visit [facility] [address], [address] [place] [address] Ar Dominique MD [address] [place] [address] 07/11/2025 10:30 AM EDT Appointment [facility] [address] [place] [address] 07/11/2025 11:30 AM EDT Appointment [facility] [address] [place] [address] 07/18/2025 10:30 AM EDT Appointment [facility] [address] [place] [address] 07/18/2025 11:30 AM EDT Appointment [facility] [address] [place] [address] 07/25/2025 10:30 AM EDT Appointment [facility] [address] [place] [address] 07/25/2025 11:30 AM EDT Appointment [facility] [address] [place] [address] 07/31/2025 9:00 AM EDT Office Visit [address] [address] Alvarez Zimmer MD [address] [place] [phone] 08/20/2025 9:30 AM EDT Clinical Support [facility] [address] [place] [address] 08/20/2025 10:[address] [facility] [address] [place] [address] [place] [address] 08/20/2025 11:00 AM EDT Office Visit [facility] [address] [place] [address] Jude Duque MD [address] [place] [address] 10/30/2025 1:20 PM EST Office Visit [facility] [address] [place] [address] Sharif Moreno, ROSY [address] [place] [address] documented as of this encounter [...] documented as of this encounter Care Teams Rug Cleaner Relationship Specialty Start Date End Date Alvarez Zimmer MD [address] [place] [id number] PCP - General Family Medicine 12/07/24 Lea Fernando [address] [facility] [address] [place] [phone] [place] [facility] 08/29/24 Rachel Ray APRN [address] [facility] [address] [place] [phone] Nurse Practitioner Gastroenterology 09/24/24 Tamera Isabel LPN VALUE-BASED TRANSFORMATION PROGRAM Licensed Practical Nurse 05/29/25 documented as of this encounter
--- OUTSIDE RECORDS SUMMARY | 2025-06-23 17:47 | XMS_ITS | Encounter Summary ---
Author Organization [employer] ([place], [place], [place], [place]) Address [address] [place] [address] Care Team Providers Care Travel Rn Name Role Phone Taina Lyles REGULATORY SERVICES CONSULTANT Primary Care Provider [phone] Encounter Details Date Type Department Care Team (Late st Contact Info) Description 09/08/2020 Transcribed Document [facility] [place] [address] [place] [address] ProviderWilliam MD [address] [place], [place] [id number] Social History Tobacco Use Types Packs/Day Years Used Date Smoking Tobacco: Never Assessed Comments Unknown Sex and Gender Information Value Date Recorded Sex Assigned at Not on file Legal Sex Female 12:21 PM CDT Gender Identity Not on file Sexual Orientation Not on file documented as of this encounter Miscellaneous Notes * Cerner Conversion Note - William Reyes MD - 09/08/2020 6:04 PM CDT Patient: MONIKA ZIMMER Age: 60 years Sex: Female : 1960 Associated Diagnoses: None Author: DANIEL SNOW PA Chief Complaint chest pain History of Present Illness chest pain - substernal and epigastric discomfort radiating down left arm associated with nausea, weakness, and low BP, constant for 1-2 days, improved by nothing. 60 yo WF established pt of Dr. Christensen with hx of Htn, DM and normal cath 2017. Presented to ER with above complaints today. On further questioning states she's had BP low 80s associated with weakness which is when she feels the worse chest pain. Not on BP meds at home but has had at least 5 watery BMs daily for the past 2 weeks with decreased po intake and early satiety. She has taken both Bactrim and Cipro together at least 3x in the past 6 months due to recurrent UTIs. She feels her abdomen is distended and diffusely tender. Review of Systems Constitutional: No fever, No chills, No weakness. Eye: No visual disturbances. Ear/Nose/Mouth/Throat Respiratory: No shortness of breath, No cough. Cardiovascular: Chest pain, No palpitations, No peripheral edema. Gastrointestinal: Nausea, Diarrhea, Abdominal pain. Genitourinary: No hematuria. Hematology/Lymphatics: No bruising tendency, No bleeding tendency. Endocrine: No cold intolerance, No heat intolerance. Integumentary: No rash, No skin lesion. Neurologic: Alert and oriented X4. Psychiatric Health Status Allergies: Allergic Reactions (Selected) No Known Allergies, No qualifying data available Current medications: (Selected) Inpatient Medications Ordered Colace: 100 mg, Oral, BID Imdur: 60 mg, Oral, Daily Normal Saline 1,000 mL: 250 mL/Hr, IntraVENous Normal Saline Flush: 10 mL, IV Push, Q12H Normal Saline Flush: 10 mL, IV Push, See Comment, PRN: IV Use Sodium Chloride 0.9% intravenous solution 1,000 mL: 20 mL/Hr, IntraVENous Tylenol: 650 mg, Oral, Q4H, PRN: Pain (Mild 1-3) Zofran: 4 mg, IV Push, Q6H, PRN: Nausea acetaminophen-HYDROcodone 325 mg-5 mg oral tablet: 1 Tab, Oral, Q4H, PRN: Pain (Moderate 4-6) magnesium sulfate: 2 Gram, IV Piggyback, See Comment, PRN: Other (See Comment) morphine: 2 mg, IV Push, Q5Min, PRN: Pain (Severe 7-10) potassium chloride 10 mEq/50 mL intravenous solution: 10 mEq, 50 mL, 50 mL/Hr, IV Piggyback, Q1H, PRN: Other (See Comment) potassium chloride 20 mEq oral tablet, extended release: 40 mEq, 2 Tab, Oral, See Comment, PRN: Other (See Comment) potassium chloride 20 mEq oral tablet, extended release: 60 mEq, 3 Tab, Oral, See Comment, PRN: Other (See Comment) Documented Medications Documented Calcium 600+D Plus Minerals: [...] Tab, Oral, QAM, 30 Tab, 0 Refill(s) [place] 7.5 mg-325 mg oral tablet: 1 Tab, [...] spray: 2 sprays, Nostrils Both, Daily, 0 Refill(s), Medications (14) Active Scheduled: (3) #NaCl 0.9% *FLUSH* inj 10 mL 10 mL, IV Push, Q12H docusate sodium 100 mg cap 100 mg 1 Cap, Oral, BID isosorbide MONOnitrate ER 60 mg tab 60 mg 1 Tab, Oral, Daily Continuous: (2) NaCl 0.9% 1,000 mL 1,000 mL, IntraVENous, 20 mL/Hr NaCl 0.9% 1,000 mL 1,000 mL, IntraVENous, 250 mL/Hr PRN: (9) #NaCl 0.9% *FLUSH* inj 10 mL 10 mL, IV Push, See Comment acetaminophen 325 mg tab 650 mg 2 Tab, Oral, Q4H acetaminophen/HYDROcodone 325/5 mg tab 1 Tab, Oral, Q4H magnesium sulfate 2 Gram, IV Piggyback, See Comment morphine 2 mg/1 ml inj 2 mg 1 mL, IV Push, Q5Min ondansetron 4 mg/2 mL inj 4 mg 2 mL, IV Push, Q6H potassium chloride 10 mEq 50 mL, IV Piggyback, Q1H potassium chloride CR 20 mEq tab 40 mEq 2 Tab, Oral, See Comment potassium chloride CR 20 mEq tab 60 mEq 3 Tab, Oral, See Comment Problem list: All Problems Anxiety / SNOMED CT 9648237045 / Confirmed Arthritis / SNOMED CT 2511031 / Confirmed ADD (attention deficit disorder) / SNOMED CT 3820875515 / Confirmed right carpal tunnel / SNOMED CT 48547124 / Confirmed Chronic depression / SNOMED CT 515279178 / Confirmed Diabetes / SNOMED CT 184648453 / Confirmed GERD (gastroesophageal reflux disease) / SNOMED CT 280284311 / Confirmed Stress incontinence / SNOMED CT 631490806 / Confirmed History of recurrent UTIs / SNOMED CT 876278791 / Confirmed H/O syncope / SNOMED CT 9362679340 / Confirmed Hyperlipidemia / SNOMED CT 57567579 / Confirmed bilateral knee pain / SNOMED CT 50036240 / Confirmed Right tennis elbow / SNOMED CT 0252002905 / Confirmed recent diagnosis Renal insufficiency / SNOMED CT 8327159121 / Confirmed RLS (restless legs syndrome) / SNOMED CT 21510467 / Confirmed sleep apnea with Cpap / SNOMED CT 204327964 / Confirmed, Active Problems (16) ADD (attention deficit disorder) Anxiety Arthritis bilateral knee pain Chronic depression Diabetes GERD (gastroesophageal reflux disease) H/O syncope History of recurrent UTIs Hyperlipidemia Renal insufficiency right carpal tunnel Right tennis elbow RLS (restless legs syndrome) sleep apnea with Cpap Stress incontinence Histories Past Medical History: No active or resolved past medical history items have been selected or recorded., as above Family History: No family history items have been selected or recorded., CVD Procedure history: choley. right breast biopsies (benign). hysterectomy. right foot surgery. carpal rupal right hand. Social History Social & Psychosocial Habits Alcohol 01/11/2017 Alcohol Use History, Social Habits Yes Alcohol Use Frequency Not used in over 3 months Tobacco 01/11/2017 Smoking Status Never smoker . Physical Examination VS/Measurements Measurements from flowsheet : Measurements 09/08/2020 15:26 EDT Height Source Estimated Height Entry Format Keith Height/Length, TELUGU (ft) 5 ft Height/Length TELUGU 5 Inch CLINICALHEIGHT 165.1 cm [place] Body Weight 56.59 kg Weight Source, ED Critical estimated dosing weight Weight Entry Format Keith Weight Dutch lb 190 lb CLINICALWEIGHT 86.36 kg Body Surface Area (BSA) 1.94 m2 Body Mass Index 31.7 kg/m2 HI , Vitals Signs (last 24 hrs) Last Charted Minimum Maximum Temp 98.2 (SEP 08:) 98.2 (SEP 08:) 98.2 (SEP 08:) Mon HR 65 (SEP 08 17:54) 57 (SEP 08 17:00) 65 (SEP 08 17:54) Periph HR 68 (SEP 08:) 68 (SEP 08:) 68 (SEP 08 15:26) Resp Rate 19 (SEP 08 17:54) 16 (SEP 08 15:26) H 25 (SEP 08 16:00) SBP 119 (SEP 08 17:54) 117 (SEP 08 17:00) 133 (SEP 08 16:00) DBP 71 (SEP 08 17:54) 67 (SEP 08 17:00) 74 (SEP 08 15:26) MAP 90 (SEP 08 17:54) 87 (SEP 08 17:00) 97 (SEP 08 16:00) SpO2 97 (SEP 08:54) 96 (SEP 08 16:30) 98 (SEP 08:26) General: Alert and oriented, No acute distress. Eye: Pupils are equal, round and reactive to light. HENT: Normocephalic. Neck: No carotid bruit, No jugular venous distention. Respiratory: Lungs are clear to auscultation, Respirations are non-labored. Cardiovascular: Normal rate, Regular rhythm, No murmur, No gallop, Good pulses equal in all extremities, Normal peripheral perfusion, No edema. Gastrointestinal: large, firm, mild diffuse tenderness. Genitourinary: No bladder tenderness. Musculoskeletal: No deformity. Integumentary: No rash, No rashes or ulcerations visualized. Neurologic: No neurologic deficits appreciated. Cognition and Speech: Speech clear and coherent. Psychiatric: Appropriate mood & affect. Review / Management Results review: Labs (Last four charted values) WBC 9.1 (SEP 08) HB 13.7 (SEP 08) HCT 41.8 (SEP 08) Plt L 151 (SEP 08) Na 141 (SEP 08) K 3.8 (SEP 08) Cl 106 (SEP 08) CO2 27 (SEP 08) BUN 16 (SEP 08) Cr H 1.03 (SEP 08) Glu R 99 (SEP 08) Ca 9.5 (SEP 08) AST H 49 (SEP 08) ALT 39 (SEP 08) ALK P 113 (SEP 08) T Bili 0.5 (SEP 08) PTN 8.0 (SEP 08) ALB 3.7 (SEP 08) Troponin 0.025 (SEP 08) . Impression and Plan Atypical Angina - numerous CV RF and symptoms better with Ntg, but normal LHC 2017. Normal EKG and Trop here. - add Imdur 60mg daily for possible small vessel disease. Could also be referred pain from abdomen. Diarrhea - 2 weeks of 5+ watery BM per day and freq Ab use - check CT abdomen and stool for c. diff - bland diet, PRN Zofran Hypotension - due to diarrhea - continue to hydrate with normal saline Early Satiety - may have some gastroparesis - can defer to OP workup Electronically signed by Luigi, [facility] Conversion Sign Language Interpreter Cerner at 03/07/2023 9:46 AM CDT documented in this encounter Plan of Treatment Not on file documented as of this encounter Visit Diagnoses Not on filedocumented in this encounter Care Teams Travel Rn Relationship Specialty Start Date End Date Taina Lyles, REGULATORY SERVICES CONSULTANT [address] [place] [id number] PCP - General Nurse Practitioner 06/15/23 documented as of this encounter
--- OUTSIDE RECORDS SUMMARY | 2025-06-23 17:47 | XMS_ITS | Encounter Summary ---
Author Organization [employer] ([place], [place], [place], [place]) Address [address] [place] [address] Care Team Providers Care Shovel Mechanic Name Role Phone Taina Lyles ADRI Primary Care Provider [phone] Encounter Details Date Type Department Care Team (Late st Contact Info) Description 09/08/2020 Transcribed Document [facility] [place] [address] [place] [address] ProviderWilliam MD [address] [place], [place] [id number] Social History Tobacco Use Types Packs/Day Years [...] Reyes MD - 09/08/2020 3:25 PM CDT ED Triage Entered On: 09/08/2020 15:29 EDT Performed On: 09/08/2020 15:26 EDT by RUSTY HART HEATING ELEMENT WINDER Triage Across the Room Chief Complaint : Pt reports Discomfront in chest that began yesterday states tingling in left arm Triage Date/Time : 09/08/2020 15:26 EDT RUSTY HART RN - 09/08/2020 15:26 EDT DCP GENERIC CODE Tracking Acuity : 2 - Emergent Tracking Group : [facility] RUSTY HART RN - 09/08/2020 15:26 EDT Mode of Arrival : Ambulatory Transported to ED by : Private vehicle To Room Via : Ambulate Accompanied By : Significant other ED Vital Signs : Document Height & Weight : Document ED Allergies : Document ED Reason for Visit : Document Tetanus Immunization : Unknown HAILEY February, RN - 09/08/2020 15:26 EDT Infectious Disease History Has the patient ever been tested for COVID-19? : No, Patient stated Does patient have symptoms of COVID-19? : No COVID19 Screening : No Experiencing Infectious Disease Symptoms : No symptoms Physical contact outside [place] in the last 30 days : No Infectious Disease History : Chicken pox/Shingles, Mumps Tuberculosis Symptoms : None HAILEY February, RN - 09/08/2020 15:26 EDT Vital Signs ED Temperature Source : Temporal artery scanning Temperature Mode : Fahrenheit Temperature, Fahrenheit : 98.2 Deg F ED Pain : No Clinical Temperature, C : 36.8 Deg C Oxygen Therapy Mode : Room air Peripheral Pulse Rate : 68 bpm Respiratory Rate : 16 Breaths/Min Systolic Blood Pressure : 119 mmHg Diastolic Blood Pressure : 74 mmHg Oxygen Saturation : 98 % HAILEY February, PARK - 09/08/2020 15:26 EDT Allergy (As Of: 09/08/2020 15:29:20 EDT) Allergies (Active) No Known Allergies Estimated Onset Date: Unspecified ; Created By: Gabbi_CARINA gregory; Reaction Status: Active ; Category: Drug ; Substance: No Known Allergies ; Type: Allergy ; Updated By: CARINA Ruiz; Reviewed Date: 01/11/2017 14:01 EST Diagnosis Control ED (As Of: 09/08/2020 15:29:20 EDT) Problems(Active) ADD (attention deficit disorder) (SNOMED CT :1224044229 ) Name of Problem: ADD (attention deficit disorder) ; Recorder: AZALEA ALBRIGHT RN; Confirmation: Confirmed ; Classification: Patient Stated ; Code: [id number] ; Contributor System: [employer] ; Last Updated: 01/11/2017 14:23 EST ; Life Cycle Date: 01/11/2017 ; Life Cycle Status: Active ; Vocabulary: SNOMED CT Anxiety (SNOMED CT :2319737610 ) Name of Problem: Anxiety ; Recorder: AZALEA ALBRIGHT RN; Confirmation: Confirmed ; Classification: Patient Stated ; Code: 5089176793 ; Contributor System: [employer] ; Last Updated: 01/11/2017 14:22 EST ; Life Cycle Date: 01/11/2017 ; Life Cycle Status: Active ; Vocabulary: SNOMED CT Arthritis (SNOMED CT :5180015 ) Name of Problem: Arthritis ; Recorder: LANNY BELLO RN; Confirmation: Confirmed ; Classification: Medical ; Code: 7255784 ; Contributor System: [employer] ; Last Updated: 09/11/2015 14:10 EDT ; Life Cycle Date: 09/11/2015 ; Life Cycle Status: Active ; Vocabulary: SNOMED CT bilateral knee pain (SNOMED CT :50451554 ) Name of Problem: bilateral knee pain ; Recorder: LANNY BELLO RN; Confirmation: Confirmed ; Classification: Medical ; Code: 53663536 ; Contributor System: [employer] ; Last Updated: 08/12/2017 10:18 EDT ; Life Cycle Date: 09/11/2015 ; Life Cycle Status: Active ; Vocabulary: SNOMED CT Chronic depression (SNOMED CT :954708744 ) Name of Problem: Chronic depression ; Recorder: AZALEA ALBRIGHT RN; Confirmation: Confirmed ; Classification: Patient Stated ; Code: 998933070 ; Contributor System: [employer] ; Last Updated: 01/11/2017 14:23 EST ; Life Cycle Date: 01/11/2017 ; Life Cycle Status: Active ; Vocabulary: SNOMED CT Diabetes (SNOMED CT :041318392 ) Name of Problem: Diabetes ; Recorder: LANNY BELLO RN; Confirmation: Confirmed ; Classification: Medical ; Code: 217560015 ; Contributor System: [employer] ; Last Updated: 09/11/2015 14:10 EDT ; Life Cycle Date: 09/11/2015 ; Life Cycle Status: Active ; Vocabulary: SNOMED CT GERD (gastroesophageal reflux disease) (SNOMED CT :878437648 ) Name of Problem: GERD (gastroesophageal reflux disease) ; Recorder: LANNY BELLO RN; Confirmation: Confirmed ; Classification: Medical ; Code: 428014333 ; Contributor System: [employer] ; Last Updated: 09/11/2015 14:11 EDT ; Life Cycle Date: 09/11/2015 ; Life Cycle Status: Active ; Vocabulary: SNOMED CT H/O syncope (SNOMED CT :5054420675 ) Name of Problem: H/O syncope ; Recorder: AZALEA ALBRIGHT RN; Confirmation: Confirmed ; Classification: Patient Stated ; Code: 8699967169 ; Contributor System: [employer] ; Last Updated: 01/11/2017 14:29 EST ; Life Cycle Date: 01/11/2017 ; Life Cycle Status: Active ; Vocabulary: SNOMED CT History of recurrent UTIs (SNOMED CT :695498162 ) Name of Problem: History of recurrent UTIs ; Recorder: AZALEA ALBRIGHT RN; Confirmation: Confirmed ; Classification: Patient Stated ; Code: 876368967 ; Contributor System: [employer] ; Last Updated: 01/11/2017 14:22 EST ; Life Cycle Date: 01/11/2017 ; Life Cycle Status: Active ; Vocabulary: SNOMED CT Hyperlipidemia (SNOMED CT :72025701 ) Name of Problem: Hyperlipidemia ; Recorder: LANNY BELLO RN; Confirmation: Confirmed ; Classification: Medical ; Code: 64214631 ; Contributor System: [employer] ; Last Updated: 09/11/2015 14:10 EDT ; Life Cycle Date: 09/11/2015 ; Life Cycle Status: Active ; Vocabulary: SNOMED CT Renal insufficiency (SNOMED CT :0195472428 ) Name of Problem: Renal insufficiency ; Recorder: AZALEA ALBRIGHT RN; Confirmation: Confirmed ; Classification: Patient Stated ; Code: 0437050342 ; Contributor System: [employer] ; Last Updated: 01/11/2017 14:22 EST ; Life Cycle Date: 01/11/2017 ; Life Cycle Status: Active ; Vocabulary: SNOMED CT right carpal tunnel (SNOMED CT :83312421 ) Name of Problem: right carpal tunnel ; Recorder: LANNY BELLO RN; Confirmation: Confirmed ; Classification: Medical ; Code: 17661742 ; Contributor System: [employer] ; Last Updated: 09/02/2017 10:07 EDT ; Life Cycle Date: 09/11/2015 ; Life Cycle Status: Active ; Vocabulary: SNOMED CT Right tennis elbow (SNOMED CT :4816133412 ) Name of Problem: Right tennis elbow ; Recorder: LANNY BELLO RN; Confirmation: Confirmed ; Classification: Medical ; Code: 1035365889 ; Contributor System: [employer] ; Last Updated: 05/21/2019 14:33 EDT ; Life Cycle Status: Active ; Vocabulary: SNOMED CT ; Comments: 09/11/2015 14:11 - LANNY BELLO RN recent diagnosis RLS (restless legs syndrome) (SNOMED CT :92296345 ) Name of Problem: RLS (restless legs syndrome) ; Recorder: LANNY BELLO RN; Confirmation: Confirmed ; Classification: Medical ; Code: 50334190 ; Contributor System: Power[employer] ; Last Updated: 09/11/2015 14:33 EDT ; Life Cycle Date: 09/11/2015 ; Life Cycle Status: Active ; Vocabulary: SNOMED CT sleep apnea with Cpap (SNOMED CT :470175302 ) Name of Problem: sleep apnea with Cpap ; Recorder: LANNY BELLO RN; Confirmation: Confirmed ; Classification: Medical ; Code: 781802074 ; Contributor System: [employer] ; Last Updated: 08/12/2017 11:32 EDT ; Life Cycle Date: 09/11/2015 ; Life Cycle Status: Active ; Vocabulary: SNOMED CT Stress incontinence (SNOMED CT :592580051 ) Name of Problem: Stress incontinence ; Recorder: LANNY BELLO RN; Confirmation: Confirmed ; Classification: Medical ; Code: 299819737 ; Contributor System: Power[employer] ; Last Updated: 09/11/2015 14:12 EDT ; Life Cycle Date: 09/11/2015 ; Life Cycle Status: Active ; Vocabulary: SNOMED CT Diagnoses(Active) Chest pain Date: 09/08/2020 ; Diagnosis Type: Reason For Visit ; Confirmation: Complaint of ; Clinical Dx: Chest pain ; Classification: Medical ; Clinical Service: Emergency medicine ; Code: PNED ; Probability: 0 ; Diagnosis Code: [id number] ED Height and Weight Height Source : Estimated Height Entry Format : [place] Height, Feet : 5 ft(Converted to: 152 cm, 60 Inch) Height, Inches : 5 Inch(Converted to: 0 ft 5 Inch, 12.70 cm) Clinical Height : 165.1 cm Weight Source, ED : Critical estimated dosing weight Weight Entry Format : [place] Weight, Pounds : 190 lb Clinical Dosing Weight : 86.36 kg Body Surface Area (BSA) : 1.94 m2 Body Mass Index : 31.7 kg/m2 (HI) Gate Body Weight (IBW) : 56.59 kg RUSTY HART, RN - 09/08/2020 15:26 EDT documented in this encounter Plan of Treatment Not on file documented as of this encounter Visit Diagnoses Not on filedocumented in this encounter Care Teams Shovel Mechanic Relationship Specialty Start Date End Date Taina Lyles, ATHLETIC EVENTS SCORER [address] [place] [address] PCP - General Nurse Practitioner 06/15/23 documented as of this encounter
--- OUTSIDE RECORDS SUMMARY | 2025-06-23 17:47 | XMS_ITS | Encounter Summary ---
Author Organization [facility] Address [address] [place] [address] Care Team Providers Care Expeller Worker Name Role Phone Kassie Lea Clarke Unavailable [phone] Rachel Ray TELEPHONE EXCHANGE OPERATOR Unavailable [phone] Alvarez Zimmer MD Primary Care Provider [phone] Reason for Visit * Reason Onset Date Comments Med Refill 05/04/2025 Encounter Details Date Type Department Care Team (Late st Contact Info) Description 05/04/2025 Refill [facility] [address] [place] [address] Alvarez Zimmer MD [address] [place] [address] Altered mental status, unspecified altered mental status type Social History Tobacco Use Types Packs/Day Years [...] 01/10/2025 How often do you attend [facility] or jehovah's witness services? Patient unable to answer 01/10/2025 Do you belong to any clubs o r organizations such as nondenominational groups, unions, fraternal or athletic groups, or [...] Patient Health Questionnaire-2 Score 1 05/07/2025 [facility] - [...] drink first t kennedy in the morning (EYE-CLINIC OFFICE COORDINATOR) to steady your nerves or to [...] encounter Miscellaneous Notes * Telephone Encounter - Fredy Fong, PharmD - 05/08/2025 10:00 AM EDT 2 medication(s) has been denied per protocol due to: Refill requested too soon Refills remain at pharmacy. documented in this encounter Plan of Treatment Upcoming Encounters Date Type Department Care Team (Late st Contact Info) Description 06/27/2025 9:30 AM EDT Appointment [facility] [address] [place] [address] 06/27/2025 10:30 AM EDT Appointment [facility] [address] [place] [address] 07/04/2025 10:30 AM EDT Appointment [facility] [address] [place] [address] 07/04/2025 11:30 AM EDT Appointment [facility] [address] [place] [address] 07/09/2025 2:40 PM EDT Office Visit [facility] [place] [address], [address] [place] [address] Ar Dominique MD [address] [place] [address] 07/11/2025 10:30 AM EDT Appointment [facility] [address] [place] [address] 07/11/2025 11:30 AM EDT Appointment [facility] [address] [place] [address] 07/18/2025 10:30 AM EDT Appointment [facility] [address] [place] [address] 07/18/2025 11:30 AM EDT Appointment [facility] [address] [place] [address] 07/25/2025 10:30 AM EDT Appointment [facility] [address] [place] [address] 07/25/2025 11:30 AM EDT Appointment [facility] [address] [place] [address] 07/31/2025 9:00 AM EDT Office Visit [address] [address] Alvarez Zimmer MD [address] [place] [address] 08/20/2025 9:30 AM EDT Clinical Support [facility] [place] [address] [place] [address] 08/20/2025 10:30 AM EDT Social Work [facility] [place] [address] [place] [address] [place] [address] 08/20/2025 11:00 AM EDT Office Visit [facility] [place] [address] [place] [address] Jude Duque MD [address] [place] [address] 10/30/2025 1:20 PM EST Office Visit [facility] [address] [place] [address] Sharif Moreno, DPNicole [address] [place] [address] documented as of this encounter Visit Diagnoses Diagnosis Altered mental status, unspecified altered mental status type documented in this encounter Additional Health Concerns Assessment Noted Time PHQ-9 Depression Total Score: 0 03/06/20 1:21 PM EDT A fall risk assessment has been complete d for the patient 04/10/2025 10:50 AM EDT A Body Mass Index follow-up plan has been documented for the patient 05/02/2025 12:13 PM EDT documented as of this encounter Care Teams Expeller Worker Relationship Specialty Start Date End Date Alvarez Zimmer MD [address] [place] [address] PCP - General Family Medicine 12/07/24 Lea Fernando [address] [place] [address] Phosphorus Processing Supervisor Endocrinology 08/29/24 Rachel Ray, ADRI [address] [place] [address] Nurse Practitioner Gastroenterology 09/24/24 documented as of this encounter
--- OUTSIDE RECORDS SUMMARY | 2025-06-23 17:47 | XMS_ITS | Encounter Summary ---
Author Organization Healthcare Address [address] [place] [address] Care Team Providers Care Swing Grinder Name Role Phone Lea Fernando Unavailable [phone] Rachel Ray DATA MANAGEMENT ANALYST Unavailable [phone] Alvarez Zimmer MD Primary Care Provider [phone] Tamera Isabel LPN Unavailable Unavailabl e Encounter Details Date Type Department Care Team (Latest Contact Info) Description 06/05/2025 Travel Social History Tobacco Use Types Packs/Day [...] do you attend [facility] or hindu services? Patient unable to answer [...] place to sleep or slept in a jail (including now)? Yes 08/29/2024 PHQ-9 Answer Date [...] were you homeless or living in a jail (including now)? No 03/06/2025 Humiliation, Afraid, Rape, [...] often do you attend [facility] or hindu services? Never 05/29/2025 Do you [...] more drinks on one occasion? Never 06/05/2025 [facility] [...] were you homeless or living in a jail (including now)? No 05/29/2025 CAGE ASSESSMENT Answer [...] drink first t kennedy in the morning (EYE-DEVELOPMENT AND HOUSING DIRECTOR) to steady your nerves or to get [...] Never 06/05/2025 2:44 PM EDT Anisha Marino L * Calculated C-SSRS Risk Score (Lifetime/Recent) Answer Date of Assessment Author No Risk Indicated 06/05/2025 2:53 PM EDT Gissel Downey * Question Answer Date of Assessment Author 1. Wish to be (Past 1 Month) No 2:53 PM EDT Gissel Marino 2. Non-Specific Active Suici liz Thoughts (Past 1 Month) No 06/05/2025 2:53 PM EDT Gissel Marino 6. Suicidal Behavior (Lifetime) No 2:53 PM EDT Gissel Marino documented as of this encounter Plan of Treatment Upcoming Encounters Date Type Department Care Team (Late st Contact Info) Description 06/27/2025 9:30 AM EDT Appointment [facility] [address] [place] [address] 06/27/2025 10:30 AM EDT Appointment [facility] [address] [place] [address] 07/04/2025 10:30 AM EDT Appointment [facility] [address] [place] [address] 07/04/2025 11:30 AM EDT Appointment [facility] [address] [place] [address] 07/09/2025 2:40 PM EDT Office Visit [facility] [address], [address] [place] [address] Ar Dominique MD [address] [place] [phone] 07/11/2025 10:30 AM EDT Appointment [facility] [address] [place] [phone] 07/11/2025 11:30 AM EDT Appointment [facility] [address] [place] [address] 07/18/2025 10:30 AM EDT Appointment [facility] [address] [place] [address] 07/18/2025 11:30 AM EDT Appointment [facility] [address] [place] [address] 07/25/2025 10:30 AM EDT Appointment [facility] [address] [place] [address] 07/25/2025 11:30 AM EDT Appointment [facility] [address] [place] [phone] 07/31/2025 9:00 AM EDT Office Visit [facility] [address] [place] [address] Alvarez Zimmer MD [address] [place] [address] 08/20/2025 9:30 AM EDT Clinical Support [facility] [address] [place] [address] 08/20/2025 10:30 AM EDT Social Work [facility] [address] [place] [address] Deysi Ortega [place], [place] [phone] 08/20/2025 11:00 AM EDT Office Visit [facility] [address] [place] [address] Jude Duque MD [address] [place] [address] 10/30/2025 1:20 PM EST Office Visit [facility] [address] [place] [phone] Sharif Moreno, DPM [address] [place] [address] documented as of this encounter [...] documented as of this encounter Care Teams Swing Grinder Relationship Specialty Start Date End Date Alvarez Zimmer MD [address] [place] [address] PCP - General Family Medicine 12/07/24 Lea Fernando [address] [facility] [address] [place] [address] Photo Editor Endocrinology 08/29/24 Rachel Ray APRN [address] [place] [address] Nurse Practitioner Gastroenterology 09/24/24 Tamera Isabel LPN VALUE-BASED TRANSFORMATION PROGRAM Licensed Practical Nurse 05/29/25 documented as of this encounter
--- OUTSIDE RECORDS SUMMARY | 2025-06-23 17:47 | XMS_ITS | Encounter Summary ---
Author Organization [employer] ([place], [place], [place], [place]) Address [address] [place] [address] Care Team Providers Care Medical Records Analyst Name Role Phone Taina Lyles WELLNESS NURSE Primary Care Provider [phone] Encounter Details Date Type Department Care Team (Late st Contact Info) Description 07/01/2021 Transcribed Document [facility] Family Medicine [facility] [place] [address] ProviderWilliam MD [address] [place], [place] [address] Social History Tobacco Use Types Packs/Day Years Used Date Smoking Tobacco: Never Assessed Comments Unknown Sex and Gender Information Value Date Recorded Sex Assigned at Not on file Legal Sex Female 12:21 PM CDT Gender Identity Not on file Sexual Orientation Not on file documented as of this encounter Miscellaneous Notes * Cerner Conversion Note - William Reyes MD - 07/01/2021 5:10 PM CDT Patient: MNOIKA ZIMMER Age: 60 years Sex: Female : 1960 Associated Diagnoses: Chest pain Author: JONATHAN DAVIS MD-EMR Basic Information Additional information: Chief Complaint from Nursing Triage Note : Chief Complaint 07/01/2021 12:30 EDT Chief Complaint SENT PER PCP FOR BP PROBLEMS, PT C/O SOME INTERMITTENT SOA . History of Present Illness Patient is a 60-year-old female with a history of diabetes hypertension pain with multiple complaints. Presenting with chest pain and shortness of breath. Patient states for the last 2 weeks she has felt progressively sick with cough and URI symptoms. Patient is also endorsing a tightness in her upper chest going into her throat. Patient was last seen by cardiology in 2019 which stated she had a normal cath in 2017. Patient has no known allergies. Nursing notes reviewed. Review of Systems Constitutional symptoms: No fever, no chills. Skin symptoms: No jaundice, ENMT symptoms: No sore throat, Respiratory symptoms: Shortness of breath, cough. Cardiovascular symptoms: Chest pain. Gastrointestinal symptoms: No abdominal pain, no nausea, no vomiting. Musculoskeletal symptoms: No back pain, Neurologic symptoms: No headache, Endocrine symptoms: No polyuria, Health Status Allergies: Allergic Reactions (Selected) No Known Allergies. Past Medical/ Family/ Social History Surgical history: choley. right breast biopsies (benign). hysterectomy. right foot surgery. carpal rupal right hand.. Family history: No family history items have been selected or recorded.. Social history: Social & Psychosocial Habits Alcohol 01/11/2017 Alcohol Use History, Social Habits Yes Alcohol Use Frequency Not used in over 3 months Tobacco 01/11/2017 Smoking Status Never smoker . Problem list: Active Problems (16) ADD (attention deficit disorder) Anxiety Arthritis bilateral knee pain Chronic depression Diabetes GERD (gastroesophageal reflux disease) H/O syncope History of recurrent UTIs Hyperlipidemia Renal insufficiency right carpal tunnel Right tennis elbow RLS (restless legs syndrome) sleep apnea with Cpap Stress incontinence . Physical Examination Vital Signs Vital Signs/Vital Measures 07/01/2021 15:30 EDT Systolic Blood Pressure 116 mmHg Diastolic Blood Pressure 56 mmHg LOW Mean Arterial Pressure (MAP)-BMDI 79 Heart Rate Monitored 109 bpm HI Respiratory Rate 26 Breaths/Min HI Oxygen Saturation 93 % LOW 07/01/2021 15:00 EDT Systolic Blood Pressure 112 mmHg Diastolic Blood Pressure 60 mmHg Mean Arterial Pressure (MAP)-BMDI 78 Heart Rate Monitored 109 bpm HI Respiratory Rate 24 Breaths/Min HI Oxygen Saturation 92 % LOW 07/01/2021 13:30 EDT Systolic Blood Pressure 142 mmHg HI Diastolic Blood Pressure 70 mmHg Mean Arterial Pressure (MAP)-BMDI 100 Heart Rate Monitored 92 bpm Respiratory Rate 11 Breaths/Min LOW Oxygen Saturation 100 % 07/01/2021 13:00 EDT Systolic Blood Pressure 142 mmHg HI Diastolic Blood Pressure 70 mmHg Mean Arterial Pressure (MAP)-BMDI 100 Heart Rate Monitored 83 bpm Respiratory Rate 21 Breaths/Min HI Oxygen Saturation 98 % 07/01/2021 12:30 EDT Systolic Blood Pressure 128 mmHg Diastolic Blood Pressure 62 mmHg Temperature Mode Fahrenheit Temperature, Fahrenheit 99 Deg F Clinical Temperature, C 37.2 Deg C Peripheral Pulse Rate 113 bpm HI Respiratory Rate 18 Breaths/Min Oxygen Saturation 95 % Oxygen Therapy Mode Room air . Measurements 07/01/2021 12:30 EDT Height Source Stated Height Entry Format Banks Height/Length, VINCENTIAN (ft) 5 ft Height/Length VINCENTIAN 6 Inch CLINICALHEIGHT 167.64 cm [place] Body Weight 58.88 kg Weight Source, ED Standing scale Weight Entry Format Banks Weight [place] Islander lb 203 lb CLINICALWEIGHT 92.27 kg Body Surface Area (BSA) 2.01 m2 Body Mass Index 32.8 kg/m2 HI . Oxygen Saturation 07/01/2021 15:30 EDT Oxygen Saturation 93 % LOW 07/01/2021 15:00 EDT Oxygen Saturation 92 % LOW 07/01/2021 13:30 EDT Oxygen Saturation 100 % 07/01/2021 13:00 EDT Oxygen Saturation 98 % 07/01/2021 12:30 EDT Oxygen Saturation 95 % . General: Alert, no acute distress. Skin: Warm, no rash, normal for ethnicity. Head: Normocephalic. Neck: Supple. Eye: Extraocular movements are intact, normal conjunctiva, Sclera. Ears, nose, mouth and throat: Oral mucosa moist. Cardiovascular: Regular rate and rhythm, No murmur, Normal peripheral perfusion, No edema. Respiratory: Lungs are clear to auscultation, respirations are non-labored, breath sounds are equal. Chest wall: No tenderness. Back: Nontender. Gastrointestinal: Soft, Nontender, Non distended, Normal bowel sounds. Neurological: Alert and oriented to person, place, time, and situation, No focal neurological deficit observed. Lymphatics: No lymphadenopathy. Psychiatric: Cooperative. Medical Decision Making Differential Diagnosis: Dehydration, diabetic ketoacidosis, diabetes mellitus, electrolyte imbalance, weakness, pneumonia, bronchitis, urosepsis. Documents reviewed: Emergency department nurses' notes. Results review: Lab results : Lab Results 07/01/2021 14:36 EDT Magnesium Level 1.7 mg/dL SARS-CoV-2 (COVID19 PCR) Negative 07/01/2021 12:36 EDT Sodium Level 134 mmol/L LOW Potassium Level 4.2 mmol/L Chloride Level 99 mmol/L LOW Carbon Dioxide Level 25 mmol/L Anion Gap 14 Glucose Level 314 mg/dL HI Blood Urea Nitrogen 12 mg/dL Creatinine Level 1.06 mg/dL HI eGFR >60 mL/min/1.73m2 eGFR NonAfrican 53 mL/min/1.73m2 LOW Bun/Creatinine 11.3 Calcium Level 8.8 mg/dL Protein Total 8.2 Gram/dL Albumin Level 2.9 Gram/dL LOW Globulin 5.3 Gram/dL HI A/G Ratio 0.5 LOW Bilirubin Total 1.2 mg/dL Alk Phos 150 Units/Liter HI AST 79 Units/Liter HI ALT 47 Units/Liter Troponin I Ultra 0.131 ng/mL HI WBC 8.0 K/uL RBC 4.28 Million/uL Hgb 13.2 Gram/dL Hct 40.6 % MCV 94.9 fL HI MCH 30.8 pg MCHC 32.5 Gram/dL Platelet Count 123 K/uL LOW MPV 10.0 fL RDW 16.5 % HI Neut % 72.5 % HI Neut # 5.82 K/uL Lymph % 12.8 % LOW Lymph # 1.03 K/uL LOW [place] % 8.2 % [place] # 0.66 K/uL Eos % 6.1 % Eos # 0.49 K/uL Baso % 0.2 % Baso # 0.02 K/uL Slide Review No IG# 0 x10(3)/uL IG% 0 % . Impression and Plan Diagnosis Chest pain - Discharge, Medical Patient is a 60-year-old female with atypical chest pain symptoms. Patient does have a positive troponin and is in sinus tach. Patient admitted to cardiology. Electronically signed by Maddie Meyers Conversion Seam Rubbing Machine Operator Cerner at 03/07/2023 9:56 AM CDT documented in this encounter Plan of Treatment Not on file documented as of this encounter Visit Diagnoses Not on filedocumented in this encounter Care Teams Medical Records Analyst Relationship Specialty Start Date End Date Taina Lyles, ADRI [address] [place] [address] PCP - General Nurse Practitioner 06/15/23 documented as of this encounter
--- OUTSIDE RECORDS SUMMARY | 2025-06-23 17:47 | XMS_ITS | Encounter Summary ---
Author Organization [employer] ([place], [place], [place], [place]) Address [address] [place] [address] Care Team Providers Care Oil Driller Name Role Phone Taina Lyles ADRI Primary Care Provider [phone] Encounter Details Date Type Department Care Team (Late st Contact Info) Description 07/01/2021 Transcribed Document [facility] [place] [facility] [address] [place] [address] ProviderWilliam MD [address] [place], [place] [address] Social History Tobacco Use Types Packs/Day Years [...] Reyes MD - 07/01/2021 12:13 PM CDT Broset Violence Assessment Entered On: 07/01/2021 17:31 EDT Performed On: 07/01/2021 17:31 EDT by Medina Lai RN Broset Violence Assessment Broset Violence Checklist of Symptoms : None Broset Violence Symptoms Subtotal : 0 Broset Violence Symptoms Indicator : Low risk (0) Broset Interventions : [place] precautions for safety used Medina Lai RN - 07/01/2021 17:31 EDT documented in this encounter Plan of Treatment Not on file documented as of this encounter Visit Diagnoses Not on filedocumented in this encounter Care Teams Oil Driller Relationship Specialty Start Date End Date Taina Lyles, PALLIATIVE CARE NURSE [address] [place] [address] PCP - General Nurse Practitioner 06/15/23 documented as of this encounter
--- OUTSIDE RECORDS SUMMARY | 2025-06-23 17:47 | XMS_ITS | Encounter Summary ---
Author Organization [employer] ([place], [place], [place], [place]) Address [address] [place] [address] Care Team Providers Care Inside Sales Territory Manager Name Role Phone Taina Lyles APRN Primary Care Provider [phone] Encounter Details Date Type Department Care Team (Late st Contact Info) Description 01/23/2019 Transcribed Document [facility] [place] [address] ProviderWilliam MD [address] [place] [address] Social History Tobacco Use Types Packs/Day Years Used Date Smoking Tobacco: Never Assessed Comments Unknown Sex and Gender Information Value Date Recorded Sex Assigned at Not on file Legal Sex Female 12:21 PM CDT Gender Identity Not on file Sexual Orientation Not on file documented as of this encounter Miscellaneous Notes * Cerner Conversion Note - William Reyes MD - 01/23/2019 5:18 PM WELFARE ELIGIBILITY INTERVIEWER [address] [address] HISTORY AND PHYSICAL PATIENT IDENTIFICATION: MONIKA ZIMMER (Female - 1960) ACCOUNT / UNIT NUMBER: [id number] / [id number] PRIMARY CARE PHYSICIAN: WILMA HOWARD APRN PATIENT LOCATION: [facility] 300-11 ADMIT DATE / TIME: 01/23/19 1051 DISCHARGE DATE / TIME: DICTATED: 01/23/19 1218 by DANIEL DICKERSON TRANSCRIBED: 01/23/19 1343 by PS IMPORTED: 01/23/19 1344 CC: WILMA HOWARD APRN; DANIEL DICKERSON PA-C; GLENN LAWRENCE\R\ [facility] Original Dictated By: MARIA GUADALUPE Hernandez For Glenn Lawrence MD History and physical ADMITTING PHYSICIAN: Dr. Lawrence. CONSULTING PHYSICIAN: Dr. Villarreal. PRIMARY CARE PHYSICIAN: Wilma Howard APRN CHIEF COMPLAINT: Chronic urinary incontinence that has failed medical management. HISTORY: This is a 58-year-old female with history of stress urinary incontinence. She has tried multiple conservative measures and despite these medications has had persistent stress urinary incontinence. It is exacerbated by coughing and sneezing. The patient's lifestyle was significantlty affected. She was directly admitted earlier today for pubovaginal sling. The patient has been followed by Dr. Villarreal. She had a thorough explanation of risks and benefits. She elected to pursue and ultimately underwent the procedure earlier this morning. There was no apparent intra or postoperative complications. The patient is seen this afternoon, lying in bed. She is in observation the [facility] floor under the care of the hospitalist service. The patient has multiple medical comorbidities complicating her care, specifically her diabetes and history of heart disease, nonobstructive. Patient postoperatively is doing pretty well. She is tolerating oral intake. Denies any chest pain or shortness of breath. Still having a fair amount of pelvic discomfort, but otherwise no specific complaints. PAST MEDICAL HISTORY: 1. Chronic stress urinary incontinence. 2. Dyslipidemia. 3. CAD/PAD. 4. Anxiety/depression. 5. Seasonal allergies. 6. Rheumatoid arthritis. 7. Osteoarthritis. 8. Lupus. 9. Questionable COPD. 10. Sleep apnea. HOME MEDICATIONS: 1. Fenofibrate 160 mg daily. 2. Baclofen 10 mg daily. 3. Carvedilol 3.125 mg b.i.d. 4. Zyrtec 10 mg daily. 5. Docusate 100 mg b.i.d. 6. Plaquenil 200 mg daily. 7. Metformin 1000 mg b.i.d. 8. Oxybutynin ER 10 mg daily. 9. Pyridium 100 mg daily. 10. Zantac 150 mg b.i.d. 11. Aspirin 81 mg daily. 12. BuSpar XL 300 mg daily. 13. Trazodone 50 mg 1-2 tabs q.h.s. as needed for insomnia. 14. Effexor ER 150 mg daily. 15. Nitro 0.4 mg sublingual for chest pain. 16. [place] 10/325 mg 1-2 tabs q.4 h. as needed. 17. Humulin U-500 at 14 units subcu b.i.d. 18. Motrin 400 mg q.6 h. as needed. 19. Zofran 8 mg q.6 h. as needed. 20. Premarin 0.625 mg vaginally q.h.s. 21. Lipitor 80 mg q.a.m. 22. Fish oil 1200 mg daily. 23. Magnesium 400 mg daily. 24. Myrbetriq 50 mg q.h.s. ALLERGIES: No known drug allergies. SURGICAL HISTORY: 1. Cataracts. 2. Cholecystectomy. 3. Hysterectomy. 4. Carpal tunnel release. 5. Knee arthroscopy. 6. Bunionectomy. 7. Multiple urologic procedures. SOCIAL HISTORY: Patient lives at home with her cat and three dogs. She has independent ADLs. Does not smoke, drink, or use illicit drugs. FAMILY HISTORY: Both mother and father are still alive. Father with heart disease and prostate cancer. Mother with diabetes and also sister with diabetes. REVIEW OF SYSTEMS: GENERAL: Negative for fever, chills, weight gain or weight loss. HEENT: No headache, vision or hearing changes. No sore throat or no nasal discharge. CHEST: No chest pain or palpitation. PULMONARY: She has some shortness of air issues that are mainly related to her sleep apnea. No cough or phlegm production. GI: No nausea, vomiting, or diarrhea. : Chronic stress urinary continence as outlined above. Otherwise no hematuria or dysuria. SKIN: No rashes. NEURO: No numbness or paralysis though she notes restless leg symptoms. PSYCH: No change in mood or sleep habits. PHYSICAL EXAMINATION: VITAL SIGNS: Temp 98.1, pulse 65, respiratory rate 16, sats 96% on 2 L, blood pressure 119/71. GENERAL: This is an obese 58-year-old female, seen today, lying in bed. Awake, alert, and oriented x3, in no obvious distress. HEENT: Atraumatic, normocephalic. Pupils equal, round, reactive to light. Extraocular movements intact. Hearing and vision intact. Mucosa moist. NECK: Supple. No JVD or carotid bruits. CHEST: Clear to auscultation bilaterally. No chest wall tenderness. No use of accessory muscles. HEART: Regular rate and rhythm. No murmurs. ABDOMEN: Soft, moderately distended with normoactive bowel sounds. No rebound or guarding. EXTREMITIES: No clubbing, cyanosis, or pitting edema. Distal pulses palpable. Capillary refill within normal limits. SKIN: Clean, dry, and intact. NEURO: Patient is awake, alert, and oriented x3. Moving all four extremities. Cranial nerves grossly intact. No appreciable motor or sensory deficits. PSYCH: Normal mood and affect. LABORATORIES AND DIAGNOSTICS: Reviewed from 01/08/2019 at [facility] showing a GFR of 57. Normal WBC. ASSESSMENT: 1. Chronic stress urinary incontinence, failed conservative measures status post pubovaginal sling. Continue analgesics, antiemetics and monitor patient's pain control. Resume ADA diet today. Leave Black catheter in place. We will discontinue the vaginal packing morning. Encourage early ambulation. We will use sequential compression devices for deep vein thrombosis prophylaxis in light of current surgery. 2. Type 2 diabetes; placed on sliding scale insulin protocol. Hold metformin and U-500. ADA diet has been ordered. We will follow. 3. Coronary artery disease/dyslipidemia, on statin, aspirin, and beta-bam therapy. Aspirin on hold due to recent surgery, otherwise resume home medical management. 4. Anxiety and depression, resume home medical management. 5. Rheumatoid arthritis, continue Plaquenil now. 6. Code status, FULL. 7. Deep venous thrombosis prophylaxis, sequential compression devices. PLAN: Care plan has been discussed with patient at bedside. Patient is doing well postoperatively, hemodynamically stable, pain is under fair control. Continue supportive care, analgesics, antiemetics and anticipate discharge home tomorrow assuming no setbacks. Monitor her glycemic control. Patient has been advised of the treatment plan, verbalized understands, is agreeable. TIME SPENT: 30 minutes. Dictated By: DANIEL DICKERSONSigned By: , OLGA [id number] [\R\ rep ct labl] [\R\ rep ct ivnm] Electronically signed by Luigi, [facility] Conversion Rn Anesthetist Cerner at 02/21/2023 1:44 PM CDT documented in this encounter Plan of Treatment Not on file documented as of this encounter Visit Diagnoses Not on filedocumented in this encounter Care Teams Inside Sales Territory Manager Relationship Specialty Start Date End Date Taina Lyles, ADRI [address] [place] [address] PCP - General Nurse Practitioner 06/15/23 documented as of this encounter
--- OUTSIDE RECORDS SUMMARY | 2025-06-23 17:47 | XMS_ITS | Encounter Summary ---
Author Organization [employer] ([place], [place], [place], [place]) Address [address] [place] [address] Care Team Providers Care Heat Pump Installer Name Role Phone Taina Lyles APRN Primary Care Provider [phone] Encounter Details Date Type Department Care Team (Late st Contact Info) Description 10/05/2019 Transcribed Document [facility] [place] [facility] [place] [address] ProviderWilliam MD [address] [place] [address] Social History Tobacco Use Types Packs/Day Years Used Date Smoking Tobacco: Never Assessed Comments Unknown Sex and Gender Information Value Date Recorded Sex Assigned at Not on file Legal Sex Female 12:21 PM CDT Gender Identity Not on file Sexual Orientation Not on file documented as of this encounter Miscellaneous Notes * Cerner Conversion Note - William Reyes MD - 10/05/2019 3:36 PM MOLDER [address] [address] OPERATIVE REPORT PATIENT IDENTIFICATION: MONIKA ZIMMER (Female - 1960) ACCOUNT / UNIT NUMBER: [id number] / [id number] PRIMARY CARE PHYSICIAN: ERYN PARKINSON APRN [place] [facility] [place] TIME: 10/05/19 0723 DISCHARGE DATE / TIME: DICTATED: 10/05/19 1036 by VOLODYMYR VILLARREAL TRANSCRIBED: 10/05/19 1219 by MAIA IMPORTED: 10/05/19 1227 CC: ERYN PARKINSON APRN; VOLODYMYR VILLARREAL\R\ DATE OF PROCEDURE: 10/05/2019 SURGEON: Vooldymyr Villarreal MD PREOPERATIVE DIAGNOSES: 1. Mixed incontinence (stress urinary incontinence, urge urinary incontinence). 2. Urethral hypermobility. 3. Morbid obesity. POSTOPERATIVE DIAGNOSES: 1. Mixed incontinence (stress urinary incontinence, urge urinary incontinence). 2. Urethral hypermobility. 3. Morbid obesity. PROCEDURES PERFORMED: 1. Botox injection of bladder (200 international units). 2. Macroplastique periurethral bulking. 3. Bilateral retrograde pyelogram. 4. Cystogram. 5. Hydrodistention of bladder. SPECIMEN: Urine culture. HISTORY: Monika Zimmer is a 59-year-old white female with morbid obesity and mixed incontinence. The patient had a cystoscopy and urodynamics and she has a definite urge component or leakage and felt she may benefit from a Botox injection of the bladder. Because of her morbid obesity, sling would be difficult and we are going to try some periurethral bulking and see if we can improve some of her stress incontinence component as well. After risks and benefits were discussed with the patient, she understands and wished to proceed. DESCRIPTION OF PROCEDURE: The patient was taken to the to the operating room, underwent LMA anesthesia, prepped and draped in the usual fashion, placed in the dorsal lithotomy position. External genitalia with morbid obesity, urethra with some hypermobility. On finding the bladder, there were no masses or lesions. We shot bilateral retrograde pyelogram and it showed mild pelvocaliectasis, but good drainage. No masses or filling defects. Cystogram showed normal bladder. We did hydrodistention of the bladder. No significant glomerulations were present. Bladder was drained and we did Botox injection of bladder with 31 mL injections for a total of 200 international units divided throughout the bladder wall. Then, we drained the bladder and did periurethral bulking with Macroplastique in 12, 3, 6, and 9 o'clock position, one vial of Macroplastique. I felt we had fair results and we drained the bladder and the patient was taken to the recovery room in stable condition. We will send her home with self-catheterization supplies if she has any urinary retention, and I will see her next Tuesday in the office for flow rate and bladder ultrasound PVR. /[id number] Dictated By: VOLODYMYR VILLARREAL E-Signed By: ALDO [id number] [\R\ rep ct labl] [\R\ rep ct ivnm] Medical Disclaimer: This report is to be considered preliminary until reviewed and signed. Electronically signed by Maddie Meyers [facility] Administrative Assistant Cerner at 02/21/2023 1:44 PM CDT documented in this encounter Plan of Treatment Not on file documented as of this encounter Visit Diagnoses Not on filedocumented in this encounter Care Teams Heat Pump Installer Relationship Specialty Start Date End Date Taina Lyles, ADRI [address] [place] [address] PCP - General Nurse Practitioner 06/15/23 documented as of this encounter
--- OUTSIDE RECORDS SUMMARY | 2025-06-23 17:47 | XMS_ITS | Encounter Summary ---
Author Organization [employer] ([place], [place], [place], [place]) Address [address] [place] [address] Care Team Providers Care Chemists Name Role Phone Taina Lyles APRN Primary Care Provider [phone] Encounter Details Date Type Department Care Team (Late st Contact Info) Description 09/09/2020 Transcribed Document [facility] [place] Family Medicine [address] [place] [address] ProviderWilliam MD [address] [place], [place] [id number] Social History Tobacco Use Types Packs/Day Years Used Date Smoking Tobacco: Never Assessed Comments Unknown Sex and Gender Information Value Date Recorded Sex Assigned at Not on file Legal Sex Female 12:21 PM CDT Gender Identity Not on file Sexual Orientation Not on file documented as of this encounter Miscellaneous Notes * Cerner Conversion Note - William Reyes MD - 09/09/2020 7:27 AM CDT ED Event Note Entered On: 09/09/2020 7:28 EDT Performed On: 09/09/2020 7:27 EDT by Richelle Rust Rn ED Event Note ED Event Date/Time : 09/09/2020 7:27 EDT ED Description of Event : gave report to Rowan NICK verbalized understanding Richelle Rust Rn - 09/09/2020 7:27 EDT documented in this encounter Plan of Treatment Not on file documented as of this encounter Visit Diagnoses Not on filedocumented in this encounter Care Teams Chemists Relationship Specialty Start Date End Date Zetter, Taina J, FELL CUTTER [address] [place] [address] PCP - General Nurse Practitioner 06/15/23 documented as of this encounter
--- OUTSIDE RECORDS SUMMARY | 2025-06-23 17:47 | XMS_ITS | Encounter Summary ---
Author Organization [employer] ([place], [place], [place], [place]) Address [address] [place] [address] Care Team Providers Care Staff Software Engineer Name Role Phone Taina Lyles ADRI Primary Care Provider [phone] Encounter Details Date Type Department Care Team (Late st Contact Info) Description 09/09/2020 Transcribed Document [facility] [place] Family Medicine [address] [place] [address] ProviderWilliam MD [address] [place], [place] [id number] Social History Tobacco Use Types Packs/Day Years Used Date Smoking Tobacco: Never Assessed Comments Unknown Sex and Gender Information Value Date Recorded Sex Assigned at Not on file Legal Sex Female 12:21 PM CDT Gender Identity Not on file Sexual Orientation Not on file documented as of this encounter Miscellaneous Notes * Cerner Conversion Note - William Reyes MD - 09/09/2020 3:08 PM CDT ED Event Note Entered On: 09/09/2020 15:09 EDT Performed On: 09/09/2020 15:08 EDT by KEITH TAVERA, CNC MILLING MACHINE OPERATOR Event Note ED Event Date/Time : 09/09/2020 15:08 EDT ED Event Location : Assigned room ED Event Details : Nursing assessment additional narrative ED Description of Event : Went over discharge paperwork with pt. pt verbalized understanding. states she will follow up with cardio. left ambulatory with son driving patient. KEITH TAVERA RN - 09/09/2020 15:08 EDT documented in this encounter Plan of Treatment Not on file documented as of this encounter Visit Diagnoses Not on filedocumented in this encounter Care Teams Staff Software Engineer Relationship Specialty Start Date End Date Taina Lyles, LIVESTOCK INSPECTOR [address] [place] [address] PCP - General Nurse Practitioner 06/15/23 documented as of this encounter
--- OUTSIDE RECORDS SUMMARY | 2025-06-23 17:47 | XMS_ITS | Encounter Summary ---
Author Organization [employer] ([place], [place], [place], [place]) Address [address] [place] [address] Care Team Providers Care Communication Coordinator Name Role Phone Taina Lyles APRN Primary Care Provider [phone] Encounter Details Date Type Department Care Team (Late st Contact Info) Description 09/09/2020 Transcribed Document [facility] [place] Family Medicine [address] [place] [address] ProviderWilliam MD [address] [place], [place] [address] Social History Tobacco Use Types Packs/Day Years Used Date Smoking Tobacco: Never Assessed Comments Unknown Sex and Gender Information Value Date Recorded Sex Assigned at Not on file Legal Sex Female 12:21 PM CDT Gender Identity Not on file Sexual Orientation Not on file documented as of this encounter Miscellaneous Notes * Cerner Conversion Note - William Reyes MD - 09/09/2020 11:55 AM CDT Patient: MONIKA ZIMMER Age: 60 years Sex: Female : 1960 Associated Diagnoses: None Author: DANIEL SNOW PA Subjective Abdominal pain improving, no diarrhea overnight, vitals improved, weakness improved, Troponin normal. Would like to go home. Health Status Allergies: Allergic Reactions (Selected) No [...] Pain (Moderate 4-6) magnesium sulfate: 2 Gram, 50 mL, 25 mL/Hr, IV Piggyback, See Comment, PRN: Other (See Comment) morphine: 2 mg, IV Push, Q5Min, PRN: Pain (Severe 7-10) potassium chloride 10 mEq/50 mL intravenous solution: 10 mEq, 100 mL, 100 mL/Hr, IV Piggyback, Q1H, PRN: Other (See [...] oral tablet: Tab, Oral, At Bedtime, 0 Refill(s) Objective VS/Measurements Vitals Signs (last 24 hrs) Last Charted Minimum Maximum Temp 98.2 (SEP 08:) 98.2 (SEP 08:) 98.2 (SEP 08:) Mon HR 60 (SEP 09 11:00) 55 (SEP 09 00:00) 69 (SEP 09 09:00) Periph HR 68 (SEP 08:) 68 (SEP 08:) 68 (SEP 08:) Resp Rate 16 (SEP 09 11:00) 14 (SEP 09 05:59) H 27 (SEP 08 23:00) SBP 106 (SEP 09 11:00) 103 (SEP 08 21:00) 133 (SEP 08 16:00) DBP L 58 (SEP 09 11:00) L 56 (SEP 09 10:00) 74 (SEP 08:) MAP 75 (SEP 09 11:00) 75 (SEP 09 11:00) 97 (SEP 08 16:00) SpO2 L 91 (SEP 09 11:00) L 90 (SEP 09 03:00) 98 (SEP 08:) General: Alert and oriented, No acute distress. Neck: No carotid bruit, No jugular venous distention. Respiratory: Lungs are clear to auscultation, Respirations are non-labored. Cardiovascular: Normal rate, Regular rhythm, No murmur, No edema. Gastrointestinal: Non-distended. Musculoskeletal: Normal ROM in bed. Integumentary: Warm, Dry, No rash. Neurologic: No deficits appreciated. Psychiatric: Cooperative, Appropriate mood & affect. Impression and Plan Atypical Angina - numerous CV RF and symptoms better with Ntg, but normal LHC 2017. Normal EKG and Trop here, ACS ruled out. - Continue Imdur 60mg daily for possible small vessel disease. Could also be referred pain from abdomen. - continue OP f/u Diarrhea - 2 weeks of 5+ watery BM per day and freq Ab use - CT Abdomen reveals cirrhosis which i discussed with pt. - no diarrhea overnight to collect stool culture, will send home with collection kit and can f/u with PCP - bland diet, PRN Zofran Hypotension - due to diarrhea - continue hydration efforts at home - enough to have clear/pale yellow urine at lest every 4 hours at home Early Satiety - may have some gastroparesis - can defer to OP workup CV stable, DC home. OP f/u with us in 1 week. PCP to further evaluate her GI distress. documented in this encounter Plan of Treatment Not on file documented as of this encounter Visit Diagnoses Not on filedocumented in this encounter Care Teams Communication Coordinator Relationship Specialty Start Date End Date Taina Lyles, ADRI [address] [place] [address] PCP - General Nurse Practitioner 06/15/23 documented as of this encounter
--- OUTSIDE RECORDS SUMMARY | 2025-06-23 17:47 | XMS_ITS | Encounter Summary ---
Author Organization [employer] ([place], [place], [place], [place]) Address [address] [place] [address] Care Team Providers Care Sand Sifter Name Role Phone Taina Lyles APRN Primary Care Provider [phone] Encounter Details Date Type Department Care Team (Late st Contact Info) Description 01/23/2019 Transcribed Document [facility] [place] [facility] [place] [address] ProviderWilliam MD [address] [place], [place] [id number] Social History Tobacco Use Types Packs/Day Years Used Date Smoking Tobacco: Never Assessed Comments Unknown Sex and Gender Information Value Date Recorded Sex Assigned at Not on file Legal Sex Female 12:21 PM CDT Gender Identity Not on file Sexual Orientation Not on file documented as of this encounter Miscellaneous Notes * Cerner Conversion Note - William Reyes MD - 01/23/2019 2:56 PM REGIONAL EHS MANAGER [address] [address] OPERATIVE REPORT PATIENT IDENTIFICATION: MONIKA ZIMMER (Female - 1960) ACCOUNT / UNIT NUMBER: [id number] / [id number] PRIMARY CARE PHYSICIAN: EYRN PARKINSON APRN PATIENT LOCATION: [facility] 300-11 ADMIT DATE / TIME: 01/23/19 1051 DISCHARGE DATE / TIME: DICTATED: 01/23/19 0956 by VOLODYMYR VILLARREAL TRANSCRIBED: 01/23/19 1107 by PS IMPORTED: 01/23/19 1108 CC: ERYN PARKINSON APRN; FRANK LI; VOLODYMYR VILLARREAL\R\ [facility] Original DATE OF PROCEDURE: 01/23/2019 PREOPERATIVE DIAGNOSIS(ES): 1. Stress urinary incontinence. 2. Morbid obesity. POSTOPERATIVE DIAGNOSIS(ES): same PROCEDURE: Pubovaginal sling(PVS) with cadiveric facia SURGEON: Volodymyr Villarreal M.D. HISTORY: Monika Zimmer is a 58-year-old white female with stress urinary incontinence, also a component of interstitial cystitis. Had a hydrodistention in the past. Patient continued to have stress urine incontinence, failed oral medications and cystoscopy. Urodynamic showed she has stress incontinence and discussed options. Patient wished to proceed with pubovaginal sling with cadaveric fascia. Option, risks, benefits discussed with patient. She understands and wished to proceed. DESCRIPTION OF PROCEDURE: Patient was taken to the operating room, placed in dorsal lithotomy position, prepped and draped in usual sterile fashion. Patient had morbid obesity, making positioning difficult. We placed a Black catheter and then used a long vaginal speculum and sutured this into place and sutured the labia apart. We placed a Black catheter and identified the bladder neck and marked this on the anterior vaginal mucosa. Then we did injection with injectable saline for hydrodissection. We made anterior vaginal wall incision and used Jag and freed this away from the urethra and did periurethral dissection laterally and found the endopelvic fascia. Patient was morbidly obese, making all this difficult. We incised the endopelvic fascia and could palpate the bone just lateral. We then did this on the right side. Once dissection was completed here, we went to make the anterior suprapubic incision. The 2 x 12 cadaveric fascia was placed in saline and then we incised over the suprapubic area. Patient had a large pannus, carried down through the large fat and went through Marianne's and identified the fascial wall just above the pubic symphysis. We then prepared the cadaveric fascia on the back table, oversewing the ends with 2-0 Vicryl and then some retention sutures with 0 PDS. A Stamey needle was used to bring the graft into place and marked it on the midline and then positioned this around the urethra. Once both sides had been placed, we did cystoscopy. Because of her obesity, we had to use the 70 degree lens and the strings were close to the lateral edge of the bladder on the right, but did not enter the bladder, so we felt that positioning was good, and left everything looked good. Then we filled the bladder full and tensioned the sling to stop leakage. The sling sutures were tied in place against the anterior abdominal wall with 10 knots and remaining excess suture was placed against the anterior abdominal wall. We closed the abdominal incision in layers and used armand for the skin. We closed the anterior vaginal incision with 2-0 Vicryl. We did lidocaine and Marcaine block and vaginal packing was placed. Dressings were applied and Black catheter was inserted. Patient was taken to recovery room in stable condition. Needle and sponge count correct x2. EBL 50-100 mL. Dictated By: VOLODYMYR VILLARREAL E-Signed By: GWENDOLYN [id number] [\R\ rep ct labl] [\R\ rep ct ivnm] documented in this encounter Plan of Treatment Not on file documented as of this encounter Visit Diagnoses Not on filedocumented in this encounter Care Teams Sand Sifter Relationship Specialty Start Date End Date Taina Lyles APRN [address] [place] [address] PCP - General Nurse Practitioner 06/15/23 documented as of this encounter
--- OUTSIDE RECORDS SUMMARY | 2025-06-23 17:47 | XMS_ITS | Encounter Summary ---
Author Organization [employer] ([place], [place], [place], [place]) Address [address] [place] [address] Care Team Providers Care Marble Installation Helper Name Role Phone Taina Lyles ADRI Primary Care Provider [phone] Encounter Details Date Type Department Care Team (Late st Contact Info) Description 09/09/2020 Transcribed Document [facility] [place] Family Medicine [address] [place] [address] ProviderWilliam MD [address] [place] [address] Social History Tobacco Use Types Packs/Day Years Used Date Smoking Tobacco: Never Assessed Comments Unknown Sex and Gender Information Value Date Recorded Sex Assigned at Not on file Legal Sex Female 12:21 PM CDT Gender Identity Not on file Sexual Orientation Not on file documented as of this encounter Miscellaneous Notes * Cerner Conversion Note - William Reyes MD - 09/09/2020 3:09 PM CDT ED Discharge Entered On: 09/09/2020 15:09 EDT Performed On: 09/09/2020 15:09 EDT by KEITH TAVERA sausage stuffer Process Patient Disposition : Discharge Personal Belongings With Patient : Yes Patient Education Completed : Yes Teaching Evaluation : Verbalizes understanding IV Discontinued : Yes KEITH TAVERA RN - 09/09/2020 15:09 EDT ED Discharge Discharge To : Home with ambulatory/outpatient follow-up Mode Of Departure : Ambulatory Discharge Instructions Reviewed With, Opportunity For Questions Given : Patient Prescriptions Given to Patient : Electronically sent Number of Prescriptions Given : 1 KEITH TAVERA RN - 09/09/2020 15:09 EDT documented in this encounter Plan of Treatment Not on file documented as of this encounter Visit Diagnoses Not on filedocumented in this encounter Care Teams Marble Installation Helper Relationship Specialty Start Date End Date Taina Lyles, ADRI [address] [place] [address] PCP - General Nurse Practitioner 06/15/23 documented as of this encounter
--- OUTSIDE RECORDS SUMMARY | 2025-06-23 17:47 | XMS_ITS | Encounter Summary ---
Author Organization [facility] Address [address] [place] [address] Care Team Providers Care Radiation Control Specialist Name Role Phone Wilma Howard Ambar RUSH Primary Care Provider [phone] Lea Fernando Unavailable [phone] Rachel Ray BANNER PAINTER Unavailable [phone] Taina Lyles APRN Primary Care Provider [phone] Monique Tapia DEVOPS ARCHITECT Unavailable Unavailable Alvarez Zimmer MD Primary Care Provider [phone] Shaniqua Trevino DEVOPS ARCHITECT Unavailable Unavailable Tamera Isabel DEVOPS ARCHITECT Unavailable Unavailabl e Encounter Details Date Type Department Care Team (Late st Contact Info) Description 09/14/2024 Orders Only External Location [address] [place] [phone] Provider, External Social History Tobacco Use Types Packs/Day Years Used Date Smoking Tobacco: Never Smokeless Tobacco: Never Alcohol Use Standard Drinks/Week Comments Not Currently 0 (1 standard drink = 0.6 oz pur e alcohol) AUDIT-C Answer Date Recorded Q1: How often do you have a drink containing alc ohol? Never 08/29/2024 Average Number of Drinks Not on file 024 Frequency of Binge Drinking Not on file 07/2024 PHQ-2 Answer Date Recorded Patient Health Questionnaire-2 Score 0 09/13/2024 Hunger Vital Sign Answer Date Recorded Within the past 12 months, y ou worried that your food would run out before you got the money to buy more. Sometimes true Within the past 12 months, t he food you bought just didn't last and you didn't have money to get more. Sometimes true 07/2024 PRAPARE - Transportation Answer Date Re corded In the past 12 months, has l ack of transportation kept you from medical appointments or from getting medications? Yes 07/2024 In the past 12 months, has l ack of transportation kept you from meetings, work, or from getting things needed for daily living? Yes 08/29/2024 Housing Stability Vital Sign Answer Rajesh e [...] in a retirement (including now)? Yes 08/29/2024 Education Answer Date Recorded What is the highest level of school you have completed or the highest degree you have received? Associate degree: occupational, technical, or vocational program 08/29/2024 Comments Unknown Sex and Gender Information Value [...] Appointment [facility] [address] [place] [address] 06/27/2025 10:30 AM EDT Appointment [facility] [address] [place] [address] 07/04/2025 10:30 AM EDT Appointment [facility] [address] [place] [address] 07/04/2025 11:30 AM EDT Appointment [facility] [address] [place] [address] 07/09/2025 2:40 PM EDT Office Visit [facility] Bone & Mineral Metabolism [address] [facility] [address], [address] [place] [address] Ar Dominique MD [address] [place] [address] 07/11/2025 10:30 AM EDT Appointment [facility] [address] [place] [address] 07/11/2025 11:30 AM EDT Appointment [facility] [address] [place] [address] 07/18/2025 10:30 AM EDT Appointment [facility] [address] [place] [address] 07/18/2025 11:30 AM EDT Appointment [facility] [address] [place] [address] 07/25/2025 10:30 AM EDT Appointment [facility] [address] [place] [address] 07/25/2025 11:30 AM EDT Appointment [facility] [address] [place] [address] 07/31/2025 9:00 AM EDT Office Visit [facility] [address] [place] [address] Alvarez Zimmer MD [address] [place] [address] 08/20/2025 9:30 AM EDT Clinical Support [facility] [place] [address] [facility] [address] [place] [phone] 08/20/2025 10:30 AM EDT Social Work [facility] [place] [address] [facility] [address] [place] [address] [place] [address] 08/20/2025 11:00 AM EDT Office Visit [facility] [address] [place] [address] Jude Duque MD [address] [place] [address] 10/30/2025 1:20 PM EST Office Visit [facility] [place] [facility] Endocrinology [address] [place] [address] Sharif Moreno DPM [address] [place] [address] documented as of this encounter Procedures Procedure Name Priority Date/Time Associated Diagnosis Comments XR THORACIC OUTSIDE IMAGES 09/14/2024 9:57 AM EDT documented in this encounter Results * XR THORACIC OUTSIDE IMAGES (09/14/2024 9:57 AM EDT) Anatomical Region Laterality Modality Radiographic [place] ging 09/14/2024 9:57 AM EDT us External Provider IMG XR PROCEDURES Final Result documented in this encounter Visit Diagnoses Not on filedocumented in this encounter Additional Health Concerns Infection Onset Date Last Indicated Resolved Time COVID-19 Rule-Out 10/14/2024 10/14/2024 10/14/2024 6:33 AM EST Respiratory Rule-Out 01/08/2025 01/08/2025 025 7:29 PM EST Assessment Noted Time A fall risk assessment has been complete d for the patient 09/13/2024 12:01 PM EDT A Body Mass Index follow-up plan has been documented for the patient 09/19/2024 9:25 AM EDT documented as of this encounter Care Teams Radiation Control Specialist Relationship Specialty Start Date End Date Wilma Howard APRN [address] [place] [address] [place] [address] PCP - General 04/03/21 09/30/24 Taina Lyles APRN [address] [place] [address] [phone] PCP - General 10/01/24 12/06/24 Alvarez Zimmer MD [address] [place] [address] PCP - General Family Medicine 12/07/24 Lea Fernando [address] [facility] [address] [place] [address] Conservation Worker Endocrinology 08/29/24 Rachel Ray APRN [address] [facility] [address] [place] [address] Nurse Practitioner Gastroenterology 09/24/24 Monqiue Tapia LPN VALUE-[place] [address] TCM Nurse 11/28/24 12/28/24 Shaniqua Trevino LPN TCM Nurse 01/15/25 02/14/25 Tamera Isabel LPN VALUE-BASED TRANSFORMATION PROGRAM Licensed Practical Nurse 05/29/25 documented as of this encounter
--- OUTSIDE RECORDS SUMMARY | 2025-06-23 17:47 | XMS_ITS | Encounter Summary ---
Author Organization [employer] ([place], [place], [place], [place]) Address [address] [place] [address] Care Team Providers Care High Pressure Operator Name Role Phone Taina Lyles ADRI Primary Care Provider [phone] Encounter Details Date Type Department Care Team (Late st Contact Info) Description 09/08/2020 Transcribed Document [facility] Family Medicine [address] [place] [address] ProviderWilliam MD [address] [place] [address] Social History Tobacco Use Types Packs/Day Years Used Date Smoking Tobacco: Never Assessed Comments Unknown Sex and Gender Information Value Date Recorded Sex Assigned at Not on file Legal Sex Female 12:21 PM CDT Gender Identity Not on file Sexual Orientation Not on file documented as of this encounter Miscellaneous Notes * Cerner Conversion Note - William Reyes MD - 09/08/2020 3:48 PM CDT Pain Assessment Entered On: 09/08/2020 17:54 EDT Performed On: 09/08/2020 17:54 EDT by Angelina Cuello, RN Intervention Information: morphine Performed by KHANH LOWRY RN on 09/08/2020 16:21:00 EDT morphine,4mg IV Push,Right Antecubit Jr Pain Assessment Pain Assessment : Follow-up assessment Angelina Cuello, PARK - 09/08/2020 17:54 EDT documented in this encounter Plan of Treatment Not on file documented as of this encounter Visit Diagnoses Not on filedocumented in this encounter Care Teams High Pressure Operator Relationship Specialty Start Date End Date Taina Lyles, MEDICAL ADMINISTRATIVE ASSISTANT [address] [place] [address] PCP - General Nurse Practitioner 06/15/23 documented as of this encounter
--- OUTSIDE RECORDS SUMMARY | 2025-06-23 17:47 | XMS_ITS | Encounter Summary ---
Author Organization Healthcare Address [address] [place] [address] Care Team Providers Care Occupational Safety And Health Manager Name Role Phone Lea Fernando Unavailable [phone] Rachel Ray DIRECTIONAL DRILL OPERATOR Unavailable [phone] Taina Lyles APRN Primary Care Provider [phone] Monique Tapia LABEL FUSER TENDER Unavailable Unavailable Alvraez Zimmer MD Primary Care Provider [phone] Shaniqua Trevino LABEL FUSER TENDER Unavailable Unavailable Tamera Isabel LABEL FUSER TENDER Unavailable Unavailabl e Encounter Details Date Type Department Care Team (Late st Contact Info) Description 10/24/2024 Ophth Exam [facility] [address] [place] [address] Serene Barragan MD [address] [place] [address] Social History Tobacco Use Types Packs/Day Years Used Date Smoking Tobacco: Never Passive Smoke Exposure: Never Smokeless Tobacco: Never Alcohol Use Standard Drinks/Week Comments Never 0 (1 standard drink = 0.6 oz pur e alcohol) Social Connection and Isolation Panel Answer Date Recorded Frequency of Communication with Friends and Fami ly Not on file 10/16/2024 Frequency of Social Gatherings with Friends and Family Not on file 10/16/2024 Attends Jew Services Not on file 10/16 Active Member of Clubs or Organizations Not on f ile 10/16/2024 Attends Club or Organization Meetings Not on berta e 10/16/2024 Are you , , di vorced, , never , or living with a partner? 10/16/2024 AUDIT-C Answer Date Recorded Q1: How often do you have a drink containing alcohol? Never 10/22/2024 Q2: How many drinks containi ng alcohol do you have on a typical day when you are drinking? Patient does not drink Q3: How often do you have si x or more drinks on one occasion? Never 10/22/2024 Overall Financial Resource Strain (CARDIA) Answe r Date Recorded How hard is it for you to pa y for the very basics like food, housing, medical care, and heating? Somewhat hard 10/16/2024 PHQ-2 Answer Date Recorded Patient Health Questionnaire-2 Score 0 10/02/2024 Hunger Vital Sign Answer Date Recorded Within the past 12 months, y ou worried that your food would run out before you got the money to buy more. Never true 10/16/20 24 Within the past 12 months, t he food you bought just didn't last and you didn't have money to get more. Never true 10/16/2024 PRAPARE - Transportation Answer Date Re corded In the past 12 months, has l ack of transportation kept you from medical appointments or from getting medications? Yes 09/22 In the past 12 months, has l ack of transportation kept you from meetings, work, or from getting things needed for daily living? Yes 10/16/2024 Housing Stability Vital Sign Answer Rajesh e [...] in a alf (including now)? Yes 08/29/2024 Housing Stability Vital Sign Answer Rajesh e Recorded In the last 12 months, was t here a time when you were not able to pay the mortgage or rent on time? No 10/16/2024 In the past 12 months, how m any times have you moved where you were living? 1 10/16/2024 At any time in the past 12 m [facility], were you homeless or living in a alf (including now)? No 10/16/2024 CAGE ASSESSMENT Answer Date Recorded Cage unable [...] drink first t kennedy in the morning (EYE-DINING HOST) to steady your nerves or to get rid of a hangover? 0 10/22/2024 CAGE Questionnaire Score 0 024 Utilities Answer Date Recorded In the past 12 months has e electric, gas, oil, or water company threatened to shut off services in your home? No 10/16/2024 Education Answer Date Recorded What is the [...] Date of Assessment Author No Risk Indicated 10/26/2024 8:00 PM Rochelle Stafford RN * Question Answer Date of Assessment Author 1. Wish to be (Past 1 Month) No 024 8:00 PM Rochelle Stafford, PARK 2. Non-Specific Active Suici liz Thoughts (Past 1 Month) No 10/26/2024 8:00 PM Rochelle Stafford, RN 6. Suicidal Behavior (Lifetime) No 8:00 PM Rochelle Stafford, RN documented as of this encounter Plan of Treatment Upcoming Encounters Date Type Department Care Team (Late st Contact Info) Description 06/27/2025 9:30 AM EDT Appointment [facility] [address] [place] [address] 06/27/2025 10:30 AM EDT Appointment [facility] [address] [place] [address] 07/04/2025 10:30 AM EDT Appointment [facility] [address] [place] [address] 07/04/2025 11:30 AM EDT Appointment [facility] [address] [place] [address] 07/09/2025 2:40 PM EDT Office Visit [facility] Bone & Mineral Metabolism [address] [facility], [address] [place] [address] Ar Dominique MD [address] [place] [address] 07/11/2025 10:30 AM EDT Appointment [facility] [address] [place] [address] 07/11/2025 11:30 AM EDT Appointment [facility] [address] [place] [address] 07/18/2025 10:30 AM EDT Appointment [facility] [address] [place] [address] 07/18/2025 11:30 AM EDT Appointment [facility] [address] [place] [address] 07/25/2025 10:30 AM EDT Appointment [facility] [address] [place] [address] 07/25/2025 11:30 AM EDT Appointment [facility] [address] [place] [address] 07/31/2025 9:00 AM EDT Office Visit [address] [address] Alvarez Zimmer MD [address] [place] [address] 08/20/2025 9:30 AM EDT Clinical Support [facility] [place] [address] [place] [address] 08/20/2025 10:30 AM EDT Social Work [facility] [place] [address] [place] [address] [place] [address] 08/20/2025 11:00 AM EDT Office Visit [facility] [place] [address] [place] [address] Jude Duque MD [address] [place] [address] 10/30/2025 1:20 PM EST [facility] [address] [place] [address] Sharif Moreno, DPM [address] [place] [address] documented as of this encounter Visit Diagnoses Not on filedocumented in this encounter Additional Health Concerns Infection Onset Date Last Indicated Resolved Time Respiratory Rule-Out 01/08/2025 01/08/2025 025 7:29 PM EST Assessment Noted Time A fall risk assessment has been complete d for the patient 10/02/2024 7:43 AM EST A Body Mass Index follow-up plan has been documented for the patient 11/03/2024 11:33 AM EST documented as of this encounter Care Teams Occupational Safety And Health Manager Relationship Specialty Start Date End Date Taina Lyles, ADRI [address] [place] [address] [place] [address] PCP - General 10/01/24 12/06/24 Alvarez Zimmer MD [address] [place] [phone] PCP - General Family Medicine 12/07/24 Lea Fernando [address] [facility] [address] [place] [address] Roundhouse Worker Endocrinology 08/29/24 Rachel Ray APRN [address] [facility] [address] [place] [address] Nurse Practitioner Gastroenterology 09/24/24 Monique Tapia LPN VALUE-BASED [place] [address] TCM Nurse 11/28/24 12/28/24 Shaniqua Trevino LPN TCM Nurse 01/15/25 02/14/25 Tamera Iasbel LPN VALUE-BASED TRANSFORMATION PROGRAM Licensed Practical Nurse 05/29/25 documented as of this encounter
--- OUTSIDE RECORDS SUMMARY | 2025-06-23 17:47 | XMS_ITS | Encounter Summary ---
Author Organization [email or web address] ([place], [place], [place], [place]) Address [address] [place] [address] Care Team Providers Care Fruit Thinner Name Role Phone Taina Lyles INSURANCE CLAIMS PROCESSOR Primary Care Provider [phone] Encounter Details Date Type Department Care Team (Late st Contact Info) Description 09/09/2020 Transcribed Document [facility] Family Medicine [address] [place] [address] ProviderWilliam MD [address] [place] [address] Social History Tobacco Use Types Packs/Day Years Used Date Smoking Tobacco: Never Assessed Comments Unknown Sex and Gender Information Value Date Recorded Sex Assigned at Not on file Legal Sex Female 12:21 PM CDT Gender Identity Not on file Sexual Orientation Not on file documented as of this encounter Miscellaneous Notes * Cerner Conversion Note - William Reyes MD - 09/09/2020 3:03 PM CDT [place] [id number] MONIKA ZIMMER :1960 Visit Time:09/08/2020 Your Visit Summary Your Care Team Primary Provider: Brina Leon Secondary Provider: Your Diagnosis Acute gastroenteritis Acute hypotension Angina pectoris Chest pain Chest pain Medical Information You may obtain a copy [...] Up with RICARDO MOLINA When Within 1 week Where: [address] [facility] [address] [place] [address]- Business (1) Follow Up with ERYN PARKINSON When Within 2 to 3 days Where: [address] [place] [address] [facility] (1) Allergies No Known Allergies Immunizations This Visit No Immunizations Found Medications What How Much When Instructions Next Dose isosorbide mononitrate (isosorbide mononitrate 60 mg oral tablet, extended release) 1 Tablet(s) Oral Every Morning Duration: 30 Day(s) Pickup at [facility] albuterol (Ventolin HFA 90 mcg/ inh inhalation [...] Units SubCutaneous am & 12 units pm magnesium oxide (magnesium oxide 500 mg oral [...] 75 mg oral tablet) Oral At Bedtime Pharmacy Information [facility]: [address] [facility] [place] [phone] The home medications listed are only as [...] This Visit (last charted value for your 09/08/2020 visit) Hematology 09/08/2020 6:14 PM WBC: 12.4 K/uL -- Normal range between ( 3.9 and 10.0 ) RBC: 4.79 Million/uL -- Normal range between ( 3.93 and 5.22 ) Hct: 43.3 % -- Normal range between ( 34.1 and 44.9 ) Hgb: 14.3 Gram/dL -- Normal range between ( 11.2 and 15.7 ) Platelet Count: 179 K/uL -- Normal range between ( 163 and 369 ) MCH: 29.9 pg -- Normal range between ( 25.6 and 32.2 ) MCHC: 33.0 Gram/dL -- Normal range between ( 32.3 and 36.5 ) MCV: 90.4 fL -- Normal range between ( 79.0 and 94.8 ) Slide Review: No Eos %: 2.6 % -- Normal range between ( 1.0 and 7.0 ) [place] #: 0.94 K/uL -- Normal range between ( 0.24 and 0.82 ) Eos #: 0.32 K/uL -- Normal range between ( 0.04 and 0.54 ) [place] %: 7.6 % -- Normal range between ( 4.7 and 12.5 ) Baso %: 0.6 % -- Normal range between ( 0.0 and 1.0 ) Baso #: 0.08 K/uL -- Normal range between ( 0.01 and 0.08 ) RDW: 13.2 % -- Normal range between ( 11.6 and 14.4 ) Neut %: 47.3 % -- Normal range between ( 34.0 and 71.0 ) Neut #: 5.86 K/uL -- Normal range between ( 1.56 and 6.13 ) Lymph %: 41.5 % -- Normal range between ( 19.3 and 53.0 ) Lymph #: 5.15 K/uL -- Normal range between ( 1.18 and 3.74 ) MPV: 10.8 fL -- Normal range between ( 9.4 and 12.4 ) IG#: 0 x10(3)/uL IG%: 0 % -- Normal range between ( 0 and 1 ) Urinalysis 09/08/2020 8:19 PM Urine Nitrite: Negative Urine Leukocyte Esterase: Negative Urine Appearance: Clear Urine Glucose Dipstick: 500 Urine Blood Dipstick: Negative Urine Type: U CleanCatch Urine Urobilinogen Dipstick: 0.2 EU/dL -- Normal range between ( 0.2 and 1.0 ) Urine Protein Dipstick: Negative Urine Color: Yellow Urine Ketones Dipstick: Negative Urine pH Dipstick: *8.0 -- Normal range between ( 6.0 and 8.0 ) Urine Bilirubin Dipstick: Negative Urine Specific [place]: *1.026 -- Normal range between ( 1.005 and 1.030 ) Microbiology 09/08/2020 8:19 PM Novel Coronavirus 2019: Negative Urine Chemistry 09/08/2020 8:19 PM Osmolality Urine: 662 mOsm/kg -- Normal range between ( 250 and 900 ) Sodium Ur [place]: 127 mMole/Liter General Chemistry 09/09/2020 12:10 PM Glucose POC2: 198 mg/dL -- Normal range between ( 70 and 110 ) 09/09/2020 3:55 AM Creatinine Level: 0.99 mg/dL -- Normal range between ( 0.55 and 1.02 ) Sodium Level: 138 mmol/L -- Normal range between ( 136 and 146 ) Potassium Level: 4.6 mmol/L -- Normal range between ( 3.5 and 5.1 ) Chloride Level: 106 mmol/L -- Normal range between ( 102 and 112 ) Carbon Dioxide Level: 27 mmol/L -- Normal range between ( 21 and 32 ) Anion Gap: 10 -- Normal range between ( 9 and 20 ) Bun/Creatinine: 16.2 -- Normal range between ( 8.0 and 20.0 ) Calcium Level: 8.7 mg/dL -- Normal range between ( 8.5 and 10.1 ) eGFR : >60 mL/min/1.73m2 eGFR NonAfrican: 58 mL/min/1.73m2 Glucose Level: 140 mg/dL -- Normal range between ( 74 and 106 ) Blood Urea Nitrogen: 16 mg/dL -- Normal range between ( 7 and 22 ) 09/08/2020 6:14 PM Bilirubin Total: 0.7 mg/dL -- Normal range between ( 0.2 and 1.3 ) A/G Ratio: 0.8 -- Normal range between ( 1.1 and 2.5 ) ALT: 50 Units/Liter -- Normal range between ( 12 and 78 ) AST: 83 Units/Liter -- Normal range between ( 5 and 37 ) Globulin: 4.4 Gram/dL -- Normal range between ( 1.5 and 4.5 ) Alk Phos: 127 Units/Liter -- Normal range between ( 27 and 136 ) Magnesium Level: 1.7 mg/dL -- Normal range between ( 1.5 and 2.4 ) Osmolality Serum: 290 mOsm/kg -- Normal range between ( 280 and 300 ) Protein Total: 8.1 Gram/dL -- Normal range between ( 6.4 and 8.2 ) Albumin Level: 3.7 Gram/dL -- Normal range between ( 3.4 and 5.0 ) Cardiac Specific Markers 09/09/2020 3:55 AM Troponin I Ultra: 0.032 ng/mL -- Normal range between ( 0.015 and 0.045 ) 09/08/2020 6:14 PM ProBNP: 88 pg/mL -- Normal range between ( 0 and 125 ) Coagulation 09/08/2020 6:14 PM INR: 1.1 -- Normal range between ( 0.9 and 1.1 ) PTT: 27.8 Second(s) -- Normal range between ( 24.2 and 31.8 ) PT: 11.9 Second(s) -- Normal range between ( 9.6 and 11.5 ) 09/08/2020 4:12 PM D Dimer Quant: 358 ng/mL Lipid Studies 09/09/2020 3:55 AM Cholesterol Tot: 150 mg/dL -- Normal range between ( 0 and 199 ) Cholesterol HDL: 48.0 mg/dL Cholesterol LDL Calculation: 57.4 mg/dL -- Normal range between ( 0.0 and 99.0 ) Cholesterol VLDL Calculation: 44.6 mg/dL -- Normal range between ( 5.0 and 40.0 ) Cholesterol/HDL Ratio: 3.1 -- Normal range between ( 0.0 and 3.2 ) Triglyceride: 223 mg/dL -- Normal range between ( 0 and 249 ) LDL/HDL Ratio: 1.2 -- Normal range between ( 0.0 and 3.2 ) Fasting?: Yes Endocrinology 09/08/2020 6:14 PM TSH: 2.240 mcInt Units/mL -- Normal range between ( 0.358 and 3.740 ) Computed Tomography 09/08/2020 7:[address] Abdomen Pelvis WO: CT Abdomen Pelvis WO Diagnostic Radiology 09/08/2020 4:12 PM CR Chest 1 Vw Portable: CR Chest 1 Vw Portable Education [employer] Dehydration, Adult Dehydration is a condition in which there is not enough fluid or water in the body. This happens when you lose more fluids than you take in. Important organs, such as the kidneys, brain, and heart, cannot function without a proper amount of fluids. Any loss of fluids from the body can lead to dehydration. Dehydration can range from mild to severe. This condition should be treated right away to prevent it from becoming severe. What are the causes? This condition may be caused by: ??? Vomiting. ??? Diarrhea. ??? Excessive sweating, such as from heat exposure or exercise. ??? Not drinking enough fluid, especially: ? When ill. ? While doing activity that requires a lot of energy. ??? Excessive urination. ??? Fever. ??? Infection. ??? Certain medicines, such as medicines that cause the body to lose excess fluid (diuretics). ??? Inability to access safe drinking water. ??? Reduced physical ability to get adequate water and food. What increases the risk? This condition is more likely to develop in people: ??? Who have a poorly controlled long-term (chronic) illness, such as diabetes, heart disease, or kidney disease. ??? Who are age 65 or older. ??? Who are disabled. ??? Who live in a place with high altitude. ??? Who play endurance sports. What are the signs or symptoms? Symptoms of mild dehydration may include: ??? Thirst. ??? Dry lips. ??? Slightly dry mouth. ??? Dry, warm skin. ??? Dizziness. Symptoms of moderate dehydration may include: ??? Very dry mouth. ??? Muscle cramps. ??? Dark urine. Urine may be the color of tea. ??? Decreased urine production. ??? Decreased tear production. ??? Heartbeat that is irregular or faster than normal (palpitations). ??? Headache. ??? Light-headedness, especially when you stand up from a sitting position. ??? Fainting (syncope). Symptoms of severe dehydration may include: ??? Changes in skin, such as: ? Cold and clammy skin. ? Blotchy (mottled) or pale skin. ? Skin that does not quickly return to normal after being lightly pinched and released (poor skin turgor). ??? Changes in body fluids, such as: ? Extreme thirst. ? No tear production. ? Inability to sweat when body temperature is high, such as in hot weather. ? Very little urine production. ??? Changes in vital signs, such as: ? Weak pulse. ? Pulse that is more than 100 beats a minute when sitting still. ? Rapid breathing. ? Low blood pressure. ??? Other changes, such as: ? Sunken eyes. ? Cold hands and feet. ? Confusion. ? Lack of energy (lethargy). ? Difficulty waking up from sleep. ? Short-term weight loss. ? Unconsciousness. How is this diagnosed? This condition is diagnosed based on your symptoms and a physical exam. Blood and urine tests may be done to help confirm the diagnosis. How is this treated? Treatment for this condition depends on the severity. Mild or moderate dehydration can often be treated at home. Treatment should be started right away. Do not wait until dehydration becomes severe. Severe dehydration is an emergency and it needs to be treated in a hospital. Treatment for mild dehydration may include: ??? Drinking more fluids. ??? Replacing salts and minerals in your blood (electrolytes) that you may have lost. Treatment for moderate dehydration may include: ??? Drinking an oral rehydration solution (ORS). This is a drink that helps you replace fluids and electrolytes (rehydrate). It can be found at pharmacies and retail stores. Treatment for severe dehydration may include: ??? Receiving fluids through an IV tube. ??? Receiving an electrolyte solution through a feeding tube that is passed through your nose and into your stomach (nasogastric tube, or NG tube). ??? Correcting any abnormalities in electrolytes. ??? Treating the underlying cause of dehydration. Follow these instructions at home: ??? If directed by your health care provider, drink an ORS: ? Make an ORS by following instructions on the package. ? Start by drinking small amounts, about ?? cup (120 mL) every 5???10 minutes. ? Slowly increase how much you drink until you have taken the amount recommended by your health care provider. ??? Drink enough clear fluid to keep your urine clear or pale yellow. If you were told to drink an ORS, finish the ORS first, then start slowly drinking other clear fluids. Drink fluids such as: ? Water. Do not drink only water. Doing that can lead to having too little salt (sodium) in the body (hyponatremia). ? Ice chips. ? Fruit juice that you have added water to (diluted fruit juice). ? Low-calorie sports drinks. ??? Avoid: ? Alcohol. ? Drinks that contain a lot of sugar. These include high-calorie sports drinks, fruit juice that is not diluted, and soda. ? Caffeine. ? Foods that are greasy or contain a lot of fat or sugar. ??? Take [id number] and prescription medicines only as told by your health care provider. ??? Do not take sodium tablets. This can lead to having too much sodium in the body (hypernatremia). ??? Eat foods that contain a healthy balance of electrolytes, such as bananas, oranges, potatoes, tomatoes, and spinach. ??? Keep all follow-up visits as told by your health care provider. This is important. Contact a health care provider if: ??? You have abdominal pain that: ? Gets worse. ? Stays in one area (localizes). ??? You have a rash. ??? You have a stiff neck. ??? You are more irritable than usual. ??? You are sleepier or more difficult to wake up than usual. ??? You feel weak or dizzy. ??? You feel very thirsty. ??? You have urinated only a small amount of very dark urine over 6???8 hours. Get help right away if: ??? You have symptoms of severe dehydration. ??? You cannot drink fluids without vomiting. ??? Your symptoms get worse with treatment. ??? You have a fever. ??? You have a severe headache. ??? You have vomiting or diarrhea that: ? Gets worse. ? Does not go away. ??? You have blood or green matter (bile) in your vomit. ??? You have blood in your stool. This may cause stool to look black and tarry. ??? You have not urinated in 6???8 hours. ??? You faint. ??? Your heart rate while sitting still is over 100 beats a minute. ??? You have trouble breathing. This information is not intended to replace advice given to you by your health care provider. Make sure you discuss any questions you have with your health care provider. Document Released: 11/07/2006 Document Revised: 10/20/2018 Document Reviewed: 12/31/2016 [employer] Patient Education ?? 2020 [employer] Angina Angina is extreme discomfort in the chest, neck, arm, jaw, or back. The discomfort is caused by a lack of blood in the middle layer of the heart wall (myocardium). There are four types of angina: ??? Stable angina. This is triggered by vigorous activity or exercise. It goes away when you rest or take angina medicine. ??? Unstable angina. This is a warning sign and can lead to a heart attack (acute coronary syndrome). This is a medical emergency. Symptoms come at rest and last a long time. ??? Microvascular angina. This affects the small coronary arteries. Symptoms include feeling tired and being short of breath. ??? Prinzmetal or variant angina. This is caused by a tightening (spasm) of the arteries that go to your heart. What are the causes? This condition is caused by atherosclerosis. This is the buildup of fat and cholesterol (plaque) in your arteries. The plaque may narrow or block the artery. Other causes of angina include: ??? Sudden tightening of the muscles of the arteries in the heart (coronary spasm). ??? Small artery disease (microvascular dysfunction). ??? Problems with any of your heart valves (heart valve disease). ??? A tear in an artery in your heart (coronary artery dissection). ??? Diseases of the heart muscle (cardiomyopathy), or other heart diseases. What increases the risk? You are more likely to develop this condition if you have: ??? High cholesterol. ??? High blood pressure (hypertension). ??? Diabetes. ??? A family history of heart disease. ??? An inactive (sedentary) lifestyle, or you do not exercise enough. ??? Depression. ??? Had radiation treatment to the left side of your chest. Other risk factors include: ??? Using tobacco. ??? Being obese. ??? Eating a diet high in saturated fats. ??? Being exposed to high stress or triggers of stress. ??? Using drugs, such as cocaine. Women have a greater risk for angina if: ??? They are older than 55. ??? They have gone through menopause (are postmenopausal). What are the signs or symptoms? Common symptoms of this condition in both men and women may include: ??? Chest pain, which may: ? Feel like a crushing or squeezing in the chest, or like a tightness, pressure, fullness, or heaviness in the chest. ? Last for more than a few minutes at a time, or it may stop and come back (recur) over the course of a few minutes. ??? Pain in the neck, arm, jaw, or back. ??? Unexplained heartburn or indigestion. ??? Shortness of breath. ??? Nausea. ??? Sudden cold sweats. Women and people with diabetes may have unusual (atypical) symptoms, such as: ??? Fatigue. ??? Unexplained feelings of nervousness or anxiety. ??? Unexplained weakness. ??? Dizziness or fainting. How is this diagnosed? This condition may be diagnosed based on: ??? Your symptoms and medical history. ??? Electrocardiogram (ECG) to measure the electrical activity in your heart. ??? Blood tests. ??? Stress test to look for signs of blockage when your heart is stressed. ??? CT angiogram to examine your heart and the blood flow to it. ??? Coronary angiogram to check your coronary arteries for blockage. How is this treated? Angina may be treated with: ??? Medicines to: ? Prevent blood clots and heart attack. ? Relax blood vessels and improve blood flow to the heart (nitrates). ? Reduce blood pressure, improve the pumping action of the heart, and relax blood vessels that are spasming. ? Reduce cholesterol and help treat atherosclerosis. ??? A procedure to widen a narrowed or blocked coronary artery (angioplasty). A mesh tube may be placed in a coronary artery to keep it open (coronary stenting). ??? Surgery to allow blood to go around a blocked artery (coronary artery bypass surgery). Follow these instructions at home: Medicines ??? Take ioxu-nsw-aprhkdy and prescription medicines only as told by your health care provider. ??? Do not take the following medicines unless your health care provider approves: ? NSAIDs, such as ibuprofen or naproxen. ? Vitamin supplements that contain vitamin A, vitamin E, or both. ? Hormone replacement therapy that contains estrogen with or without progestin. Eating and drinking ??? Eat a heart-healthy diet. This includes plenty of fresh fruits and vegetables, whole grains, low-fat (lean) protein, and low-fat dairy products. ??? Follow instructions from your health care provider about eating or drinking restrictions. Activity ??? Follow an exercise program approved by your health care provider. ??? Consider joining a cardiac rehabilitation program. ??? Take a break when you feel fatigued. Plan rest periods in your daily activities. Lifestyle ??? Do not use any products that contain nicotine or tobacco, such as cigarettes, e-cigarettes, and chewing tobacco. If you need help quitting, ask your health care provider. ??? If your health care provider says you can drink alcohol: ? Limit how much you use to: ? 0???1 drink a day for non women. ? 0???2 drinks a day for men. ? Be aware of how much alcohol is in your drink. In the [place] one drink equals one 12 oz bottle of beer (355 mL), one 5 oz glass of wine (148 mL), or one 1?? oz glass of hard liquor (44 mL). General instructions ??? Maintain a healthy weight. ??? Learn to manage stress. ??? Keep your vaccinations up to date. Get the flu (influenza) vaccine every year. ??? Talk to your health care provider if you feel depressed. Take a depression screening test to see if you are at risk for depression. ??? Work with your health care provider to manage other health conditions, such as hypertension or diabetes. ??? Keep all follow-up visits as told by your health care provider. This is important. Get help right away if: ??? You have pain in your chest, neck, arm, jaw, or back, and the pain: ? Lasts more than a few minutes. ? Is recurring. ? Is not relieved by taking medicines under the tongue (sublingual nitroglycerin). ? Increases in intensity or frequency. ??? You have a lot of sweating without cause. ??? You have unexplained: ? Heartburn or indigestion. ? Shortness of breath or difficulty breathing. ? Nausea or vomiting. ? Fatigue. ? Feelings of nervousness or anxiety. ? Weakness. ??? You have sudden light-headedness or dizziness. ??? You faint. These symptoms may represent a serious problem that is an emergency. Do not wait to see if the symptoms will go away. Get medical help right away. Call your local emergency services (911 in the [place] Do not drive yourself to the hospital. Summary ??? Angina is extreme discomfort in the chest, neck, arm, jaw, or back that is caused by a lack of blood in the heart wall. ??? There are many symptoms of angina. They include chest pain, unexplained heartburn or indigestion, sudden cold sweats, and fatigue. ??? Angina may be treated with behavioral changes, medicine, or surgery. ??? Symptoms of angina may represent an emergency. Get medical help right away. Call your local emergency services (911 in the [place] Do not drive yourself to the hospital. This information is not intended to replace advice given to you by your health care provider. Make sure you discuss any questions you have with your health care provider. Document Released: 11/07/2006 Document Revised: 06/25/2019 Document Reviewed: 06/25/2019 [employer] Patient Education ?? 2020 [employer] Emergency Awareness and Preventative Care STROKE [...] Assistance with quitting is available by contacting 2-094-MUHM-NOW. This is a free resource providing counseling, [...] CPR? There are two easy steps: Call if you see a teen or adult [...] emergency, radiology, or pathology physicians. Patient Name:MONIKA ZIMMER I have received this information and was given the opportunity to ask questions. Patient/Shank Archer Name: Patient/Shank Archer Signature: Relationship to Patient: Clinician/Hospital Shank Archer Signature: Please Provide a Telephone Number Where You Can Be Reached: Is it Permissible To Leave a Message? Date: documented in this encounter Plan of Treatment Not on file documented as of this encounter Visit Diagnoses Not on filedocumented in this encounter Care Teams Fruit Thinner Relationship Specialty Start Date End Date Taina Lyles, INSURANCE CLAIMS PROCESSOR [address] [place] [id number] PCP - General Nurse Practitioner 06/15/23 documented as of this encounter
--- OUTSIDE RECORDS SUMMARY | 2025-06-23 17:47 | XMS_ITS | Encounter Summary ---
Author Organization [employer] ([place], [place], [place], [place]) Address [address] [place] [address] Care Team Providers Care Geology Professor Name Role Phone Taina Lyles ADRI Primary Care Provider [phone] Encounter Details Date Type Department Care Team (Late st Contact Info) Description 09/08/2020 Transcribed Document [facility] [place] [address] [place] [address] ProviderWilliam MD [address], [place] [id number] Social History Tobacco Use Types Packs/Day Years [...] MD - 09/08/2020 3:25 PM CDT ED Assessment Entered On: 09/08/2020 16:35 EDT Performed On: 09/08/2020 16:31 EDT by Angelina Cuello RN ED Quick Look Assessment Level of Consciousness : Alert, Awake Affect/Behavior : Appropriate, Calm, Cooperative Orientation : Oriented x 4 Skin Temperature : Warm Skin Description : Dry Angelina Cuello RN - 09/08/2020 16:31 EDT ED General-Functional Assess Information Obtained From : Patient Preferred Communication Mode : Verbal Communication Barrier : None Primary Language : [place] Any Spiritual/Cultural Needs or Requests : No Currently in Unsafe Situation : No Angelina Cuello RN - 09/08/2020 16:31 EDT Social Habits Smoking Status : Never (less than 100 in lifetime; none in last 30 days) Smokeless Tobacco Status : Never Desires Tobacco Cessation Calc : 0 Angelina Cuello RN - 09/08/2020 16:31 EDT Social History (As Of: 09/08/2020 16:35:52 EDT) Tobacco: Smoking Status Never smoker. (Last Updated: 01/11/2017 14:31:04 EST by AZALEA ALBRIGHT, RN) Alcohol: Alcohol Use History Yes. Alcohol Use Frequency Not used in over 3 months. (Last Updated: 01/11/2017 14:31:20 EST by AZALEA ALBRIGHT, RN) Cardiovascular ASMT, ED Cardiovascular Assessment WDL : WDL with exceptions Cardiovascular Symptoms : Chest pain at rest Heart Rhythm : Regular Nail Bed Color : [place] Angelina Cuello RN - 09/08/2020 17:54 EDT Electronically signed by [facility] Conversion Assembler Cerner at 03/07/2023 9:46 AM CDT documented in this encounter Plan of Treatment Not on file documented as of this encounter Visit Diagnoses Not on filedocumented in this encounter Care Teams Geology Professor Relationship Specialty Start Date End Date Taina Lyles, LAUNDRY HOUSEKEEPER [address] [place] [id number] PCP - General Nurse Practitioner 06/15/23 documented as of this encounter
--- OUTSIDE RECORDS SUMMARY | 2025-06-23 17:47 | XMS_ITS | Encounter Summary ---
Author Organization [employer] ([place], [place], [place], [place]) Address [address] [place] [address] Care Team Providers Care Shiftman Name Role Phone Taina Lyles ADRI Primary Care Provider [phone] Encounter Details Date Type Department Care Team (Late st Contact Info) Description 09/11/[address] [facility] [place] [address] [place] [address] ProviderWilliam MD [address] [place], [place] [id number] Social History Tobacco Use Types Packs/Day Years Used Date Smoking Tobacco: Never Assessed Comments Unknown Sex and Gender Information Value Date Recorded Sex Assigned at Not on file Legal Sex Female 12:21 PM CDT Gender Identity Not on file Sexual Orientation Not on file documented as of this encounter Miscellaneous Notes * [employer]ner Conversion Note - William Reyes MD - 09/11/2020 10:40 AM CDT [facility] Entered On: 09/11/2020 10:40 EDT Performed On: 09/11/2020 10:40 EDT by IOANA MEDINA RN Cardiac [facility] Pul[facility] Criteria Disqualifying for Phase 2 Cardiac Rehab : No qualifying diagnosis Patient is scheduled for Phase 2 Cardiac rehab : No Cardiac Outpatient Rehab Evaluation Comment : Outpatient GI workup planned IOANA MEDINA RN - 09/11/2020 10:40 EDT documented in this encounter Plan of Treatment Not on file documented as of this encounter Visit Diagnoses Not on filedocumented in this encounter Care Teams Shiftman Relationship Specialty Start Date End Date Taina Lyles, LOCKMAKER [address] [place] [id number] PCP - General Nurse Practitioner 06/15/23 documented as of this encounter
--- OUTSIDE RECORDS SUMMARY | 2025-06-23 17:47 | XMS_ITS | Encounter Summary ---
Author Organization [employer] ([place], [place], [place], [place]) Address [address] [place] [address] Care Team Providers Care Shaft Headman Name Role Phone Taina Lyles ADRI Primary Care Provider [phone] Encounter Details Date Type Department Care Team (Late st Contact Info) Description 09/09/2020 Transcribed Document [facility] [place] Family Medicine [address] [place] [address] ProviderWilliam MD [address] [place], [place] [id number] Social History Tobacco Use Types Packs/Day Years Used Date Smoking Tobacco: Never Assessed Comments Unknown Sex and Gender Information Value Date Recorded Sex Assigned at Not on file Legal Sex Female 12:21 PM CDT Gender Identity Not on file Sexual Orientation Not on file documented as of this encounter Miscellaneous Notes * Cerner Conversion Note - William Reyes MD - 09/09/2020 12:24 PM CDT ED Event Note Entered On: 09/09/2020 12:25 EDT Performed On: 09/09/2020 12:24 EDT by KEITH TAVERA, CATTLE CARE WORKER Event Note ED Event Date/Time : 09/09/2020 12:24 EDT ED Event Location : Assigned room ED Event Details : Nursing assessment additional narrative ED Description of Event : pt is up for discharge. has called son to come citrus picker patient KEITH TAVERA, RN - 09/09/2020 12:24 EDT documented in this encounter Plan of Treatment Not on file documented as of this encounter Visit Diagnoses Not on filedocumented in this encounter Care Teams Shaft Headman Relationship Specialty Start Date End Date Taina Lyles, SLURRY MAN [address] [place] [id number] PCP - General Nurse Practitioner 06/15/23 documented as of this encounter
--- OUTSIDE RECORDS SUMMARY | 2025-06-23 17:48 | XMS_ITS | Encounter Summary ---
Author Organization Healthcare Address [address] [place] [address] Care Team Providers Care Cryptologic Support Specialist Name Role Phone Lea Fernando Unavailable [phone] Rachel Ray HARNESSMAKER APPRENTICE Unavailable [phone] Alvarez Zimmer MD Primary Care Provider [phone] Encounter Details Date Type Department Care Team (Latest Contact Info) Description 05/10/2025 Travel Social History Tobacco Use Types Packs/Day [...] often do you attend chur ch or religion services? Patient unable to answer [...] any time in the past 12 [facility], were you homeless or living [...] drink first t kennedy in the morning (EYE-PRODUCTION ARTIST) to steady your nerves or to get [...] Upcoming Encounters Date Type Department Care Team ([facility] st Contact Info) Description 06/27/2025 9:30 AM EDT Appointment [facility] [address] [place] [address] 06/27/2025 10:30 AM EDT Appointment [facility] [address] [place] [address] 07/04/2025 10:30 AM EDT Appointment [facility] [address] [place] [address] 07/04/2025 11:30 AM EDT Appointment [facility] [address] [place] [address] 07/09/2025 2:40 PM EDT Office Visit [facility] [place] [facility] [address] [facility], [address] [place] [address] Ar Dominique MD [address] [facility] [address] [place] [address] 07/11/2025 10:30 AM EDT Appointment [facility] [address] [place] [address] 07/11/2025 11:30 AM EDT Appointment [facility] [address] [place] [address] 07/18/2025 10:30 AM EDT Appointment [facility] [address] [place] [address] 07/18/2025 11:30 AM EDT Appointment [facility] [address] [place] [address] 07/25/2025 10:30 AM EDT Appointment [facility] [address] [place] [address] 07/25/2025 11:30 AM EDT Appointment [facility] [address] [place] [address] 07/31/2025 9:00 AM EDT Office Visit [facility] [address] [place] [address] Alvarez Zimmer MD [address] [place] [address] 08/20/2025 9:30 AM EDT Clinical Support [facility] [place] [address] [place] [address] 08/20/2025 10:30 AM EDT Social Work [facility] [place] [address] [place] [address] Deysi Ortega [place], [place] [id number] 08/20/2025 11:00 AM EDT Office Visit [facility] [place] [address] [place] [address] Jude Duque MD [address] [place] [address] 10/30/2025 1:20 PM EST Office Visit [facility] Endocrinology [address] [place] [address] Sharif Moreno, DPNicole [address] [place] [address] documented as of this encounter [...] documented as of this encounter Care Teams Cryptologic Support Specialist Relationship Specialty Start Date End Date Alvarez Zimmer MD [address] [place] [address] PCP - General Family Medicine 12/07/24 Lea Fernando [address] [place] [address] Gelatin Maker [facility] Endocrinology 08/29/24 Rachel Ray, HARNESSMAKER APPRENTICE [address] [place] [address] Nurse Practitioner Gastroenterology 09/24/24 documented as of this encounter
--- OUTSIDE RECORDS SUMMARY | 2025-06-23 17:48 | XMS_ITS | Encounter Summary ---
Author Organization Healthcare Address [address] [place] [address] Care Team Providers Care Supervising Appraiser Name Role Phone Lea Fernando Unavailable [phone] Rachel Ray SR. SOCIAL MEDIA & MOBILE MANAGER Unavailable [phone] Alvarez Zimmer MD Primary Care Provider Encounter Details Date Type Department Care Team (Latest Contact Info) Description 05/07/2025 Travel Social History Tobacco Use Types Packs/Day [...] often do you attend chur ch or temple services? Patient unable to answer 01/10/2025 Do [...] Patient Health Questionnaire-2 Score 1 05/07/2025 [facility] - [...] drink first t kennedy in the morning (EYE-MARKETING COMPLIANCE MANAGER) to steady your nerves or to [...] Tamera Carter documented as of this encounter Plan of Treatment Upcoming Encounters Date Type Department Care Team (Late st Contact Info) Description 06/27/2025 9:30 AM EDT Appointment [facility] [address] [place] [address] 06/27/2025 10:30 AM EDT Appointment [facility] [address] [place] [address] 07/04/2025 10:30 AM EDT Appointment [facility] [address] [place] [address] 07/04/2025 11:30 AM EDT Appointment [facility] [address] [place] [address] 07/09/2025 2:40 PM EDT Office Visit [facility] [address] [facility], [address] [place] [address] Ar Dominique MD [address] [facility] [address] [place] [address] 07/11/2025 10:30 AM EDT Appointment [facility] [address] [place] [address] 07/11/2025 11:30 AM EDT Appointment [facility] [address] [place] [address] 07/18/2025 10:30 AM EDT Appointment [facility] [address] [place] [address] 07/18/2025 11:30 AM EDT Appointment [facility] [address] [place] [address] 07/25/2025 10:30 AM EDT Appointment [facility] [address] [place] [address] 07/25/2025 11:30 AM EDT Appointment [facility] [address] [place] [address] 07/31/2025 9:00 AM EDT Office Visit [address] [address] Alvarez Zimmer MD [address] [place] [address] 08/20/2025 9:30 AM EDT Clinical Support [facility] [address] [place] [address] 08/20/2025 10:30 AM EDT Social Work [facility] [address] [place] [address] Deysi Ortega [place], [place] [phone] 08/20/2025 11:00 AM EDT Office Visit [facility] [place] [address] [place] [address] Jude Duque MD [address] [facility] [address] [place] [address] 10/30/2025 1:20 PM EST Office Visit [facility] Endocrinology [address] [place] [address] Sharif Moreno, DPM [address] [place] [address] documented as of this encounter [...] documented as of this encounter Care Teams Supervising Appraiser Relationship Specialty Start Date End Date Alvarez Zimmer MD [address] [place] [address] PCP - General Family Medicine 12/07/24 Lea Fernando [address] [place] [address] Booking Supervisor Endocrinology 08/29/24 Rachel Ray APRN [address] [facility] [address] [place] [address] Nurse Practitioner Gastroenterology 09/24/24 documented as of this encounter
--- OUTSIDE RECORDS SUMMARY | 2025-06-23 17:48 | XMS_ITS | Encounter Summary ---
Author Organization Healthcare Address [facility] [place] [address] Care Team Providers Care Payroll Bookkeeper Name Role Phone Wilma Howard Amabr RUSH Primary Care Provider [phone] Lea Fernando Unavailable [phone] Rachel Ray PRODUCTION MATERIAL HANDLER Unavailable [phone] Taina Lyles PRODUCTION MATERIAL HANDLER Primary Care Provider [phone] Monique Tapia CAREER DEVELOPMENT ASSOCIATE Unavailable Unavailable Alvarez Zimmer MD Primary Care Provider Shaniqua Trevino CAREER DEVELOPMENT ASSOCIATE Unavailable Unavailable Tamera Isabel CAREER DEVELOPMENT ASSOCIATE Unavailable Unavailabl e Encounter Details Date Type Department Care Team (Late st Contact Info) Description 02/02/2024 Orders Only External Location [address] [place] [phone] Provider, External Social History Tobacco Use Types [...] Orientation Straight 06/22/2022 9: 33 AM EDT documented as of this encounter Plan of Treatment Upcoming Encounters Date Type Department Care Team (Late st Contact Info) Description 06/27/2025 9:30 AM EDT Appointment [facility] [address] [place] [address] 06/27/2025 10:30 AM EDT Appointment [facility] [address] [place] [address] 07/04/2025 10:30 AM EDT Appointment [facility] [address] [place] [address] 07/04/2025 11:30 AM EDT Appointment [facility] [address] [place] [address] 07/09/2025 2:40 PM EDT Office Visit [facility] [address], [address] [place] [address] Ar Dominique MD [address] [place] [address] 07/11/2025 10:30 AM EDT Appointment [facility] [address] [place] [address] 07/11/2025 11:30 AM EDT Appointment [facility] [address] [place] [address] 07/18/2025 10:30 AM EDT Appointment [facility] [address] [place] [address] 07/18/2025 11:30 AM EDT Appointment [facility] [address] [place] [address] 07/25/2025 10:30 AM EDT Appointment [facility] [address] [place] [address] 07/25/2025 11:30 AM EDT Appointment [facility] [address] [place] [address] 07/31/2025 9:00 AM EDT Office Visit [address] [phone] Alvarez Zimmer MD [address] [place] [address] 08/20/2025 9:30 AM EDT Clinical Support [facility] [place] [address] [place] [address] 08/20/2025 10:30 AM EDT Social Work [facility] [place] [address] [place] [address] [place] [address] 08/20/2025 11:00 AM EDT Office Visit [facility] [place] [address] [place] [address] Jude Duque MD [address] [place] [address] 10/30/2025 1:20 PM EST Office Visit [facility] Endocrinology [address] [place] [address] Sharif Moreno, DPNicole [address] [place] [address] documented as of this encounter Procedures Procedure Name Priority Date/Time Associated Diagnosis Comments CT OUTSIDE IMAGES 02/02/2024 11:26 AM EDT documented in this encounter Results * CT OUTSIDE IMAGES (02/02/2024 11:26 AM EDT) Anatomical Region Laterality Modality Computed Tomogra phy 02/02/2024 11:2 6 AM EDT us External Provider IMG CT PROCEDURES Final Result documented in this encounter Visit Diagnoses Not on filedocumented in this encounter Additional Health Concerns Infection Onset Date Last Indicated Resolved Time COVID-19 Rule-Out 10/14/2024 10/14/2024 10/14/2024 6:33 AM EST Respiratory Rule-Out 01/08/2025 01/08/20252 025 7:29 PM EST Assessment Noted Time A fall risk assessment has been complete d for the patient 09/07/2023 9:44 AM EDT A Body Mass Index follow-up plan has been documented for the patient 01/11/2024 11:06 AM EST documented as of this encounter Care Teams Payroll Bookkeeper Relationship Specialty Start Date End Date Wilma Howard, PRODUCTION MATERIAL HANDLER [address] [place], [place] [id number] PCP - General 04/03/21 09/30/24 Taina Lyles, PRODUCTION MATERIAL HANDLER [address] [place] [address] [place], [place] [id number] PCP - General 10/01/24 12/06/24 Alvarez Zimmer MD [address] [place] [address] PCP - General Family Medicine 12/07/24 Lea Fernando [address] [facility] [address] [place] [address] Market Development Manager Endocrinology 08/29/24 Rachel Ray, PRODUCTION MATERIAL HANDLER [address] [facility] [address] [place] [address] Nurse Practitioner Gastroenterology 09/24/24 Monique Tapia LPN VALUE-BASED [place] [address] TCM Nurse 11/28/24 12/28/24 Shaniqua Trevino LPN TCM Nurse 01/15/25 02/14/25 Tamera Isabel LPN VALUE-BASED TRANSFORMATION PROGRAM Licensed Practical Nurse 05/29/25 documented as of this encounter
--- OUTSIDE RECORDS SUMMARY | 2025-06-23 17:48 | XMS_ITS | Encounter Summary ---
Author Organization Healthcare Address [address] [place] [address] Care Team Providers Care Personal Care Service Provider Name Role Phone Lea Fernando Unavailable [phone] Rachel Ray STOCK TRADER Unavailable [phone] Alvarez Zimmer MD Primary Care Provider [phone] Encounter Details Date Type Department Care Team (Latest Contact Info) Description 04/24/2025 Travel Social History Tobacco Use Types Packs/Day [...] you attend chur ch or uatsdin services? Patient unable to answer [...] Recorded Patient Health Questionnaire-2 Score 2 04/10/2025 [facility] [...] in a jail (including now)? No 03/06/2025 CAGE ASSESSMENT Answer [...] drink first t kennedy in the morning (EYE-COLOR COATER) to steady your nerves or to get [...] Upcoming Encounters Date Type Department Care Team ([facility] st Contact Info) Description 06/27/2025 9:30 AM EDT Appointment [facility] Interventional Radiology [address] [place] [address] 06/27/2025 10:30 AM EDT Appointment [facility] Inter[facility] Radiology [address] [place] [address] 07/04/2025 10:30 AM EDT Appointment [facility] [address] [place] [address] 07/04/2025 11:30 AM EDT Appointment [facility] [address] [place] [address] 07/09/2025 2:40 PM EDT Office Visit [facility] [place] [facility] [address] [facility], [address] [place] [address] Ar Dominique MD [address] [facility] [address] [place] [address] 07/11/2025 10:30 AM EDT Appointment [facility] [address] [place] [address] 07/11/2025 11:30 AM EDT Appointment [facility] [address] [place] [address] 07/18/2025 10:30 AM EDT Appointment [facility] [address] [place] [address] 07/18/2025 11:30 AM EDT Appointment [facility] [address] [place] [address] 07/25/2025 10:30 AM EDT Appointment [facility] [address] [place] [address] 07/25/2025 11:30 AM EDT Appointment [facility] [address] [place] [address] 07/31/2025 9:00 AM EDT Office Visit [facility] [address] [place] [address] Alvarez Zimmer MD [address] [place] [address] 08/20/2025 9:30 AM EDT Clinical Support [facility] [place] [address] [place] [address] 08/20/2025 10:30 AM EDT Social Work [facility] [place] [address] [place] [address] Deysi Ortega [place], [place] [address] 08/20/2025 11:00 AM EDT Office Visit [facility] [place] [address] [place] [address] Jude Duque MD [address] [place] [address] 10/30/2025 1:20 PM EST Office Visit [facility] Endocrinology [address] [place] [address] Sharif Moreno, DPNicole [address] [place] [address] documented as of this encounter [...] documented as of this encounter Care Teams Personal Care Service Provider Relationship Specialty Start Date End Date Alvarez Zimmer MD [address] [place] [address] PCP - General Family Medicine 12/07/24 Lea Fernando [address] [place] [address] Linderman Operator Endocrinology 08/29/24 Rachel Ray, STOCK TRADER [address] [place] [address] Nurse Practitioner Gastroenterology 09/24/24 documented as of this encounter
--- OUTSIDE RECORDS SUMMARY | 2025-06-23 17:48 | XMS_ITS | Encounter Summary ---
Author Organization Healthcare Address [facility] [place] [address] Care Team Providers Care Medical Biller Name Role Phone Wilma Howard Ambar RUSH Primary Care Provider [phone] Lea Fernando Unavailable [phone] Rachel Ray DIRECTOR HOUSEKEEPING Unavailable [phone] Taina Lyles DIRECTOR HOUSEKEEPING Primary Care Provider [phone] Monique Tapia RETORT UNLOADER Unavailable Unavailable Alvarez Zimemr MD Primary Care Provider [phone] Shaniqua Trevino RETORT UNLOADER Unavailable Unavailable Tamera Isabel RETORT UNLOADER Unavailable Unavailabl e Encounter Details Date Type Department Care Team (Late st Contact Info) Description 07/17/2024 Orders Only External Location [address] [place] [phone] Provider, External Social History Tobacco Use Types [...] Appointment [facility] Inter[facility]iology [address] [place] [address] 06/27/2025 10:30 AM EDT Appointment [facility] Radiology [address] [place] [address] 07/04/2025 10:30 AM EDT Appointment [facility] [address] [place] [address] 07/04/2025 11:30 AM EDT Appointment [facility] [address] [place] [address] 07/09/2025 2:40 PM EDT Office Visit [facility] [address], [address] [place] [address] Ar Dominique MD [address] [place] [address] 07/11/2025 10:30 AM EDT Appointment [facility] [address] [place] [address] 07/11/2025 11:30 AM EDT Appointment [facility] [address] [place] [address] 07/18/2025 10:30 AM EDT Appointment [facility] [address] [place] [address] 07/18/2025 11:30 AM EDT Appointment [facility] [address] [place] [address] 07/25/2025 10:30 AM EDT Appointment [facility] [address] [place] [address] 07/25/2025 11:30 AM EDT Appointment [facility] [address] [place] [address] 07/31/2025 9:00 AM EDT Office Visit [address] [phone] Alvarez Zimmer MD [address] [place] [address] 08/20/2025 9:30 AM EDT Clinical Support [facility] [place] [address] [place] [address] 08/20/2025 10:30 AM EDT Social Work [facility] [place] [address] [place] [address] [place] [address] 08/20/2025 11:00 AM EDT Office Visit [facility] [place] [address] [place] [address] Jude Duque MD [address] [place] [address] 10/30/2025 1:20 PM EST [facility]ology [address] [place] [address] Sharif Moreno, DPNicole [address] [place] [address] documented as of this encounter Procedures Procedure Name Priority Date/Time Associated Diagnosis Comments CT OUTSIDE IMAGES 07/17/2024 11:21 AM EDT documented in this encounter Results * CT OUTSIDE IMAGES (07/17/2024 11:21 AM EDT) Anatomical Region Laterality Modality Computed Tomogra phy 07/17/2024 11:2 1 AM EDT us External Provider IMG CT [...] plan has been documented for the patient 06/29/2024 10:50 AM EDT documented as of this encounter Care Teams Medical Biller Relationship Specialty Start Date End Date Wilma Howard APRN [address] [place] [id number] PCP - General 04/03/21 09/30/24 Taina Lyles, DIRECTOR HOUSEKEEPING [address] [place] [address] [place], [place] [id number] PCP - General 10/01/24 12/06/24 Alvarez Zimmer MD [address] [place] [address] PCP - General Family Medicine 12/07/24 Lea Fernando [address] [facility] [address] [place] [address] Truck Trailer Mechanic Endocrinology 08/29/24 Rachel Ray, DIRECTOR HOUSEKEEPING [address] [facility] [address] [place] [address] Nurse Practitioner Gastroenterology 09/24/24 Monique Tapia LPN VALUE-BASED [place] [address] TCM Nurse 11/28/24 12/28/24 Shaniqua Trevino LPN TCM Nurse 01/15/25 02/14/25 Tamera Isabel LPN VALUE-BASED TRANSFORMATION PROGRAM Licensed Practical Nurse 05/29/25 documented as of this encounter
--- OUTSIDE RECORDS SUMMARY | 2025-06-23 17:48 | XMS_ITS | Encounter Summary ---
Author Organization Healthcare Address [facility] [place] [place] [address] Care Team Providers Care Calender Wind Up Tender Name Role Phone Wilma Howard Ambar RUSH Primary Care Provider [phone] Lea Fernando Unavailable [phone] Rachel Ray EXECUTOR OF ESTATE Unavailable [phone] Taina Lyles EXECUTOR OF ESTATE Primary Care Provider [phone] Monique Tapia LUBRICATING MACHINE TENDER Unavailable Unavailable Alvarez Zimmer MD Primary Care Provider [phone] Shaniqua Trevino LUBRICATING MACHINE TENDER Unavailable Unavailable Tamera Isabel LUBRICATING MACHINE TENDER Unavailable Unavailabl e Encounter Details Date Type Department Care Team (Late st Contact Info) Description 02/08/2024 Orders Only External Location [address] [place] [phone] Provider, External Social History Tobacco Use Types [...] Appointment [facility] Inter[facility] Radiology [address] [place] [address] 06/27/2025 10:30 AM EDT Appointment [facility] [address] [place] [address] 07/04/2025 10:30 AM EDT Appointment [facility] [address] [place] [address] 07/04/2025 11:30 AM EDT Appointment [facility] Radiology [address] [place] [address] 07/09/2025 2:40 PM EDT Office Visit [facility] Bone & Mineral Metabolism [address], [address] [place] [address] Ar Dominique MD [address] [place] [address] 07/11/2025 10:30 AM EDT Appointment [facility] Radiology [address] [place] [address] 07/11/2025 11:30 AM EDT Appointment [facility] [address] [place] [address] 07/18/2025 10:30 AM EDT Appointment [facility] [address] [place] [address] 07/18/2025 11:30 AM EDT Appointment [facility] [address] [place] [address] 07/25/2025 10:30 AM EDT Appointment [facility] [address] [place] [address] 07/25/2025 11:30 AM EDT Appointment [facility] [address] [place] [address] 07/31/2025 9:00 AM EDT Office Visit [address] [phone] Alvarez Zimmer MD [address] [place] [address] 08/20/2025 9:30 AM EDT Clinical Support [facility] [place] [address] [place] [address] 08/20/2025 10:30 AM EDT Social Work [facility] [place] [address] [place] [address] [place] [address] 08/20/2025 11:00 AM EDT Office Visit [facility] [place] [address] [place] [address] Jude Duque MD [address] [place] [address] 10/30/2025 1:20 PM EST Office Visit [facility] Endocrinology [address] [place] [address] Sharif Moreno, DPNicole [address] [place] [address] documented as of this encounter Procedures Procedure Name Priority Date/Time Associated Diagnosis Comments XR THORACIC OUTSIDE IMAGES 02/08/2024 10:11 PM EDT documented in this encounter Results * XR THORACIC OUTSIDE IMAGES (02/08/2024 10:11 PM EDT) Anatomical Region Laterality Modality Radiographic Mariposa ging 02/08/2024 10:1 1 PM EDT us External Provider IMG XR PROCEDURES [...] documented as of this encounter Care Teams Calender Wind Up Tender Relationship Specialty Start Date End Date Wilma Howard, EXECUTOR OF ESTATE [address] [place], [place] [id number] PCP - General 04/03/21 09/30/24 Taina Lyles, EXECUTOR OF ESTATE [address] [place] [address] [place], [place] [id number] PCP - General 10/01/24 12/06/24 Alvarez Zimmer MD [address] [place] [address] PCP - General Family Medicine 12/07/24 Lea Fernando [address] [facility] [address] [place] [address] Collections Representative Endocrinology 08/29/24 Rachel Ray, EXECUTOR OF ESTATE [address] [facility] [address] [place] [address] Nurse Practitioner Gastroenterology 09/24/24 Monique Tapia LPN VALUE-[place] [address] TCM Nurse 11/28/24 12/28/24 Shaniqua Trevino LPN TCM Nurse 01/15/25 02/14/25 Tamera Isabel LPN VALUE-BASED TRANSFORMATION PROGRAM Licensed Practical Nurse 05/29/25 documented as of this encounter
--- OUTSIDE RECORDS SUMMARY | 2025-06-23 17:48 | XMS_ITS | Encounter Summary ---
Author Organization Healthcare Address [facility] [place] [address] Care Team Providers Care Model Maker Plastic Name Role Phone Wilma Howard Ambar RUSH Primary Care Provider [phone] Lea Fernando Unavailable [phone] Rachel Ray RECEIVING ASSOCIATE Unavailable [phone] Taina Lyles RECEIVING ASSOCIATE Primary Care Provider [phone] Monique Tapia PRISON GUARD SUPERVISOR Unavailable Unavailable Alvarez Zimmer MD Primary Care Provider [phone] Shaniqua Trevino PRISON GUARD SUPERVISOR Unavailable Unavailable Tamera Isabel PRISON GUARD SUPERVISOR Unavailable Unavailabl e Encounter Details Date Type Department Care Team (Late st Contact Info) Description 02/08/2024 Orders Only External Location [address] [place] [phone] Provider, External Social History Tobacco Use Types [...] Appointment [facility] Interventional Radiology [address] [place] [address] 06/27/2025 10:30 AM EDT Appointment [facility] Inter[facility] Radiology [address] [place] [address] 07/04/2025 10:30 AM EDT Appointment [facility] [address] [place] [address] 07/04/2025 11:30 AM EDT Appointment [facility] Radiology [address] [place] [address] 07/09/2025 2:40 PM EDT Office Visit [facility] Bone & Mineral Metabolism [address], [address] [place] [address] Ar Dominique MD [address] [place] [address] 07/11/2025 10:30 AM EDT Appointment [facility] [address] [place] [address] 07/11/2025 11:30 AM EDT Appointment [facility] [address] [place] [address] 07/18/2025 10:30 AM EDT Appointment [facility] [address] [place] [address] 07/18/2025 11:30 AM EDT Appointment [facility] [address] [place] [address] 07/25/2025 10:30 AM EDT Appointment [facility] [address] [place] [address] 07/25/2025 11:30 AM EDT Appointment [facility] [address] [place] [address] 07/31/2025 9:00 AM EDT Office Visit [address] [phone] Alvarez Zimmer MD [address] [place] [address] 08/20/2025 9:30 AM EDT Clinical Support [facility] [place] [address] [place] [address] 08/20/2025 10:[address] [facility] [place] [address] [place] [address] [place] [address] 08/20/2025 11:00 AM EDT Office Visit [facility] [place] [address] [place] [address] Jude Duque MD [address] [place] [address] 10/30/2025 1:20 PM EST Office Visit [facility] Endocrinology [address] [place] [address] Sharif Moreno, DPNicole [address] [place] [address] documented as of this encounter Procedures Procedure Name Priority Date/Time Associated Diagnosis Comments CT OUTSIDE IMAGES 02/08/2024 11:09 PM EDT documented in this encounter Results * CT OUTSIDE IMAGES (02/08/2024 11:09 PM EDT) Anatomical Region Laterality Modality Computed Tomogra phy 02/08/2024 11:0 9 PM EDT us External Provider IMG CT PROCEDURES [...] documented as of this encounter Care Teams Model Maker Plastic Relationship Specialty Start Date End Date Wilma Howard, RECEIVING ASSOCIATE [address] [place], [place] [phone] PCP - General 04/03/21 09/30/24 Taina Lyles, RECEIVING ASSOCIATE [address] [place] [address] [place] [phone] PCP - General 10/01/24 12/06/24 Alvarez Zimmer MD [address] [place] [address] PCP - General Family Medicine 12/07/24 Lea Fernando 2195 [facility] [address] [place] [address] Condenser Tester Endocrinology 08/29/24 Rachel Ray, RECEIVING ASSOCIATE [address] [facility] [address] [place] [address] Nurse Practitioner Gastroenterology 09/24/24 Monique Tapia LPN VALUE-BASED [place] [address] TCM Nurse 11/28/24 12/28/24 Shaniqua Trevino LPN TCM Nurse 01/15/25 02/14/25 Tamera Isabel LPN VALUE-BASED TRANSFORMATION PROGRAM Licensed Practical Nurse 05/29/25 documented as of this encounter
--- OUTSIDE RECORDS SUMMARY | 2025-06-23 17:48 | XMS_ITS | Encounter Summary ---
Author Organization Healthcare Address [address] [place] [address] Care Team Providers Care Cpr Ambulance Driver Name Role Phone Lea Fernando Unavailable [phone] Rachel Ray DREDGE MASTER Unavailable [phone] Alvarez Zimmer MD Primary Care Provider [phone] Tamera Isabel LPN Unavailable Unavailabl e Encounter Details Date Type Department Care Team (Late st Contact Info) Description 05/08/2025 Results Follow-Up [facility] [address] [place] [address] Wilma Arana, [facility] LIVER [id number] [address] [place] [address] Social History Tobacco Use Types [...] do you attend [facility] or moravian services? Patient unable to answer 01/10/2025 Do you belong to any clubs o r organizations such as hoahaoism groups, unions, fraOgden Tomotherapy or athletic groups, or school groups? Patient [...] Patient Health Questionnaire-2 Score 1 05/07/2025 [facility] of Occupat ional Health - Occupational [...] any time in the past 12 m [facility], were you homeless or living in a senior living (including now)? No 03/06/2025 CAGE ASSESSMENT Answer [...] first t kennedy in the morning (EYE-PRODUCTION SERVICE MANAGER) to steady your nerves or to [...] Miscellaneous Notes * Result Encounter Note - Octavia Herrera PA - 05/08/2025 7:[address] looks as expected! No concerns * Result Encounter Note - Wilma Arana RN - 05/08/2025 7:56 AM EDT May 07 CT documented in this encounter Plan of Treatment Upcoming Encounters Date Type Department Care Team (Late st Contact Info) Description 06/27/2025 9:30 AM EDT Appointment [facility] Interventional Radiology [address] [place] [address] 06/27/2025 10:30 AM EDT Appointment [facility] Interventional Radiology [address] [place] [address] 07/04/2025 10:30 AM EDT Appointment [facility] Interventional Radiology [address] [place] [address] 07/04/2025 11:30 AM EDT Appointment [facility] Interventional Radiology [address] [place] [address] 07/09/2025 2:40 PM EDT Office Visit [facility] [place] [address] [facility], [address] [place] [address] Ar Dominique MD [address] [place] [address] 07/11/2025 10:30 AM EDT Appointment [facility] Inter[facility] Radiology [address] [place] [address] 07/11/2025 11:30 AM EDT Appointment [facility] Inter[facility] Radiology [address] [place] [address] 07/18/2025 10:30 AM EDT Appointment [facility] Rad[facility] [address] [place] [address] 07/18/2025 11:30 AM EDT Appointment [facility] [address] [place] [address] 07/25/2025 10:30 AM EDT Appointment [facility] Rad[facility] [address] [place] [address] 07/25/2025 11:30 AM EDT Appointment [facility] [address] [place] [address] 07/31/2025 9:00 AM EDT Office Visit [address] [address] Alvarez Zimmer MD [address] [place] [address] 08/20/2025 9:30 AM EDT Clinical Support [facility] [place] [address] [place] [address] 08/20/2025 10:30 AM EDT Social Work [facility] [place] [address] [place] [address] [place] [address] 08/20/2025 11:00 AM EDT Office Visit [facility] [address] [place] [address] Jude Duque MD [address] [place] [address] 10/30/2025 1:20 PM EST Office Visit [facility] Endocrinology [address] [place] [address] Sharif Moreno, DPNicole [address] [place] [address] documented as of this encounter [...] documented as of this encounter Care Teams Cpr Ambulance Driver Relationship Specialty Start Date End Date Alvarez Zimmer MD [address] [place] [address] PCP - General Family Medicine 12/07/24 Lea Fernando 2[address] [facility] [address] [place] [address] Support Services Specialist Endocrinology 08/29/24 Rachel Ray APRN [address] [place] [address] Nurse Practitioner Gastroenterology 09/24/24 Tamera Isabel LPN VALUE-BASED TRANSFORMATION PROGRAM Licensed Practical Nurse 05/29/25 documented as of this encounter
--- OUTSIDE RECORDS SUMMARY | 2025-06-23 17:48 | XMS_ITS | Encounter Summary ---
Author Organization [facility] Address [address] [place] [address] Care Team Providers Care Meeting/Event Planner Name Role Phone AyahTor Lea Clarke Unavailable [phone] Rachel Ray GRAPE CUTTER Unavailable [phone] Alvarez Zimmer MD Primary Care Provider [phone] Tamera Isabel FIRE MARSHAL REFINERY Unavailable Unavailabl e Reason for Visit * Reason Onset Date Comments Med Refill 04/19/2025 Encounter Details Date Type Department Care Team (Late st Contact Info) Description 04/19/2025 Refill [facility] [address] [place] [address] Alvarez Zimmer MD [address] [place] [address] Social History Tobacco Use [...] week 01/10/2025 How often do you attend [facility] or episcopal services? Patient unable to answer [...] Recorded Patient Health Questionnaire-2 Score 2 04/10/2025 [facility] of Occupat ional Health - [...] drink first t kennedy in the morning (EYE-CLAIMS INVESTIGATOR) to steady your nerves or to [...] encounter Miscellaneous Notes * Telephone Encounter - Cammie Messina PharmD - 04/23/2025 10:23 AM EDT 1 medication(s) has been approved per protocol. Please keep upcoming appointment for additional refills. Medications have been pended for refill atupcoming appointment. documented in this encounter Plan of Treatment Upcoming Encounters Date Type Department Care Team ([facility] st Contact Info) Description 06/27/2025 9:30 AM EDT Appointment [facility] Interventional Radiology [address] [place] [address] 06/27/2025 10:30 AM EDT Appointment [facility] Interventional Radiology [address] [place] [address] 07/04/2025 10:30 AM EDT Appointment [facility] Inter[facility] Radiology [address] [place] [address] 07/04/2025 11:30 AM EDT Appointment [facility] Interventional Radiology [address] [place] [address] 07/09/2025 2:40 PM EDT Office Visit [facility] [place] [address] [facility], [address] [place] [address] Ar Dominique MD [address] [facility] [address] [place] [address] 07/11/2025 10:30 AM EDT Appointment [facility] Inter[facility] Radiology [address] [place] [address] 07/11/2025 11:30 AM EDT Appointment [facility] Rad[facility] [address] [place] [address] 07/18/2025 10:30 AM EDT Appointment [facility] Rad[facility] [address] [place] [address] 07/18/2025 11:30 AM EDT Appointment [facility] [address] [place] [address] 07/25/2025 10:30 AM EDT Appointment [facility] Radiology [address] [place] [address] 07/25/2025 11:30 AM EDT Appointment [facility] Interventional Radiology [address] [place] [facility] [place] [place] [address] 07/31/2025 9:00 AM EDT Office Visit [address] [address] Alvarez Zimmer MD [address] [place] [address] 08/20/2025 9:30 AM EDT Clinical Support [facility] [place] [address] [place] [address] 08/20/2025 10:30 AM EDT Social Work [facility] [place] [address] [place] [address] [place] [address] 08/20/2025 11:00 AM EDT Office Visit [facility] [address] [place] [address] Jude Duque MD [address] [place] [address] 10/30/2025 1:20 PM EST Office Visit [facility] Endocrinology [address] [place] [address] Sharif Moreno, DPM [address] [place] [address] documented as of this encounter Visit Diagnoses Not on filedocumented in this encounter Additional Health Concerns Assessment Noted Time PHQ-9 Depression Total Score: 0 03/06/20 1:21 PM EDT A fall risk assessment has been complete d for the patient 04/10/2025 10:50 AM EDT A Body Mass Index follow-up plan has been documented for the patient 04/18/2025 1:20 PM EDT documented as of this encounter Care Teams Meeting/Event Planner Relationship Specialty Start Date End Date Alvarez Zimmer MD [address] [place] [address] PCP - General Family Medicine 12/07/24 Lea Fernando 2[address] [facility] [address] [place] [address] Dumbwaiter Operator Endocrinology 08/29/24 Rachel Ray, GRAPE CUTTER [address] [place] [address] Nurse Practitioner Gastroenterology 09/24/24 Tamera Isabel LPN VALUE-BASED TRANSFORMATION PROGRAM Licensed Practical Nurse 05/29/25 documented as of this encounter
--- OUTSIDE RECORDS SUMMARY | 2025-06-23 17:48 | XMS_ITS | Encounter Summary ---
Author Organization Healthcare Address [place] [address] Care Team Providers Care Meat Seafood Associate Name Role Phone Wilma Howard Ambar RUSH Primary Care Provider [phone] Lea Fernando Unavailable [phone] Rachel Ray PLANE RUNNER Unavailable [phone] Taina Lyles PLANE RUNNER Primary Care Provider [phone] Monique Tapia DAIRY LAB TECHNICIAN Unavailable Unavailable Alvarez Zimmer MD Primary Care Provider [phone] Shaniqua Trevino DAIRY LAB TECHNICIAN Unavailable Unavailable Tamera Isabel DAIRY LAB TECHNICIAN Unavailable Unavailabl e Encounter Details Date Type Department Care Team (Late st Contact Info) Description 07/14/2024 Orders Only External Location [address] [place] [phone] Provider, External Social History Tobacco Use Types [...] Appointment [facility] Interventional Radiology [address] [place] [address] 06/27/2025 10:30 AM EDT Appointment [facility] Inter[facility] Radiology [address] [place] [address] 07/04/2025 10:30 AM EDT Appointment [facility] Rad[facility] [address] [place] [address] 07/04/2025 11:30 AM EDT Appointment [facility] Interventional Radiology [address] [place] [address] 07/09/2025 2:40 PM EDT Office Visit [facility] Bone & Mineral Metabolism [address], [address] [place] [address] Ar Dominique MD [address] [place] [address] 07/11/2025 10:30 AM EDT Appointment [facility] Inter[facility] Radiology [address] [place] [address] 07/11/2025 11:30 AM EDT Appointment [facility] [address] [place] [address] 07/18/2025 10:30 AM EDT Appointment [facility] [address] [place] [address] 07/18/2025 11:30 AM EDT Appointment [facility] [address] [place] [address] 07/25/2025 10:30 AM EDT Appointment [facility] [address] [place] [address] 07/25/2025 11:30 AM EDT Appointment [facility] Inter[facility] [address] [place] [address] 07/31/2025 9:00 AM EDT Office Visit [address] [phone] Alvarez Zimmer MD [address] [place] [address] 08/20/2025 9:30 AM EDT Clinical Support [facility] [place] [address] [place] [address] 08/20/2025 10:30 AM EDT Social Work [facility] [place] [address] [place] [address] [place] [address] 08/20/2025 11:00 AM EDT Office Visit [facility] [place] [address] [place] [address] Jude Duque MD [address] [place] [address] 10/30/2025 1:20 PM EST Office Visit [facility] Endocrinology [address] [place] [address] Sharif Moreno, DPNicole [address] [place] [address] documented as of this encounter Procedures Procedure Name Priority Date/Time Associated Diagnosis Comments CT OUTSIDE IMAGES 07/14/2024 4:31 PM EDT documented in this encounter Results * CT OUTSIDE IMAGES (07/14/2024 4:31 PM EDT) Anatomical Region Laterality Modality Computed Tomogra phy 07/14/2024 4:31 PM EDT us External Provider IMG CT [...] documented as of this encounter Care Teams Meat Seafood Associate Relationship Specialty Start Date End Date Wilma Howard, PLANE RUNNER [address] [place], [place] [phone] PCP - General 04/03/21 09/30/24 Taina Lyles, PLANE RUNNER [address] [place] [address] Dr [place] [place], [place] [id number] PCP - General 10/01/24 12/06/24 Alvarez Zimmer MD [address] [place] [address] PCP - General Family Medicine 12/07/24 Lea Fernando [address] [facility] [address] [place] [address] Architectural Examiner Endocrinology 08/29/24 Rachel Ray, PLANE RUNNER [address] [facility] [address] [place] [address] Nurse Practitioner Gastroenterology 09/24/24 Monique Tapia LPN VALUE-BASED [place] [address] TCM Nurse 11/28/24 12/28/24 Shaniqua Trevino LPN TCM Nurse 01/15/25 02/14/25 Tamera Isabel LPN VALUE-BASED TRANSFORMATION PROGRAM Licensed Practical Nurse 05/29/25 documented as of this encounter
--- OUTSIDE RECORDS SUMMARY | 2025-06-23 17:48 | XMS_ITS | Encounter Summary ---
Author Organization Healthcare Address [facility] [place] [place] [address] Care Team Providers Care Change Coordinator Name Role Phone Wilma Howard Ambar RUSH Primary Care Provider [phone] Lea Fernando Unavailable [phone] Rachel Ray LICENSED INVESTMENT SALES ASSISTANT Unavailable [phone] Taina Lyles LICENSED INVESTMENT SALES ASSISTANT Primary Care Provider [phone] Monique Tapia RECRUITER MANAGER Unavailable Unavailable Alvarez Zimmer MD Primary Care Provider [phone] Shaniqua Trevino RECRUITER MANAGER Unavailable Unavailable Tamera Isabel RECRUITER MANAGER Unavailable Unavailabl e Encounter Details Date Type Department Care Team (Late st Contact Info) Description 12/15/2023 Orders Only External Location [address] [place] [phone] Provider, External Social History Tobacco Use Types [...] Appointment [facility]iology [address] [place] [address] 06/27/2025 10:30 AM EDT Appointment [facility] [address] [place] [address] 07/04/2025 10:30 AM EDT Appointment [facility] [address] [place] [address] 07/04/2025 11:30 AM EDT Appointment [facility] [address] [place] [address] 07/09/2025 2:40 PM EDT Office Visit [facility] Bone & Mineral Metabolism [address], [address] [address] Ar Dominique MD [address] [address] 07/11/2025 10:30 AM EDT Appointment [facility] Radiology [address] [place] [address] 07/11/2025 11:30 AM EDT Appointment [facility] [address] [place] [address] 07/18/2025 10:30 AM EDT Appointment [facility] [address] [place] [address] 07/18/2025 11:30 AM EDT Appointment [facility] [address] [place] [address] 07/25/2025 10:30 AM EDT Appointment [facility] [address] [place] [address] 07/25/2025 11:30 AM EDT Appointment [facility] [address] [place] [address] 07/31/2025 9:00 AM EDT Office Visit [address] [phone] Alvarez Zimmer MD [address] [place] [address] 08/20/2025 9:30 AM EDT Clinical Support [facility] [place] [address] [address] 08/20/2025 10:30 AM EDT Social Work [facility] [place] [address] [address] [place] [address] 08/20/2025 11:00 AM EDT Office Visit [facility] [place] [address] [address] Jude Duque MD [address] [address] 10/30/2025 1:20 PM EST Office Visit [facility] Endocrinology [address] [place] [address] Sharif Moreno, DPNicole [address] [address] documented as of this encounter Procedures Procedure Name Priority Date/Time Associated Diagnosis Comments XR ABDOMEN OUTSIDE IMAGES 12/15/2023 12:33 PM EST documented in this encounter Results * XR ABDOMEN OUTSIDE IMAGES (12/15/2023 12:33 PM EST) Anatomical Region Laterality Modality Radiographic Mariposa ging 12/15/2023 12:3 3 PM EST us External Provider IMG XR PROCEDURES Final [...] plan has been documented for the patient 11/24/2023 12:58 PM EST documented as of this encounter Care Teams Change Coordinator Relationship Specialty Start Date End Date Wilma Howard, LICENSED INVESTMENT SALES ASSISTANT [address] [place], [place] [id number] PCP - General 04/03/21 09/30/24 Taina Lyles, LICENSED INVESTMENT SALES ASSISTANT [address] [place] [address] Dr [place], [place] [id number] PCP - General 10/01/24 12/06/24 Alvarez Zimmer MD [address] [place] [address] PCP - General Family Medicine 12/07/24 Lea Fernando [address] [address] Finance Business Partner Endocrinology 08/29/24 Rachel Ray, LICENSED INVESTMENT SALES ASSISTANT [address] [address] Nurse Practitioner Gastroenterology 09/24/24 Monique Tapia LPN VALUE-BASED TRANSFORMATION PROGRAM [address] TCM Nurse 11/28/24 12/28/24 Shaniqua Trevino LPN TCM Nurse 01/15/25 02/14/25 Tamera Isabel LPN VALUE-BASED TRANSFORMATION PROGRAM Licensed Practical Nurse 05/29/25 documented as of this encounter
--- OUTSIDE RECORDS SUMMARY | 2025-06-23 17:48 | XMS_ITS | Encounter Summary ---
Author Organization [facility] Address [address] [place] [address] Care Team Providers Care Bench Assembler Operator Name Role Phone Kassie Lea Clarke Unavailable [phone] Rachel Ray HOSPITAL COOK Unavailable [phone] Alvarez Zimmer MD Primary Care Provider [phone] Tamera Isabel OPERATIONS VOCATIONAL INSTRUCTOR Unavailable Unavailabl e Reason for Visit * Reason Onset Date Comments Med Refill 04/23/2025 Encounter Details Date Type Department Care Team (Late st Contact Info) Description 04/23/2025 Refill [facility] [address] [place] [address] Alvarez Zimmer MD [address] [place] [address] Altered mental status, unspecified altered [...] How often do you attend chur or yazdanism services? Patient unable to answer [...] drink first t kennedy in the morning (EYE-COW BUYER) to steady your nerves or to [...] encounter Miscellaneous Notes * Telephone Encounter - Janette Wise, PharmD - 04/26/2025 8:50 AM EDT 3 medication(s) has been denied per protocol due to: Refill requested too soon 30 day supply plus 2 refills of zinc sulfate 220 mg sent to [facility] 03/01/2025. Refills remain available at the pharmacy. 90 day supply plus 1 refill of ciprofloxacin 500 mg sent to [facility] 03/01/2025. 1 refill remains available at the pharmacy. 30 day supply plus 3 refills of lactulose 10 gm/15 ml sent to [facility] 02/14/2025. Refills remain available at the pharmacy. documented in this encounter Plan of Treatment Upcoming Encounters Date Type Department Care Team (Late st Contact Info) Description 06/27/2025 9:30 AM EDT Appointment [facility] Inter[facility] Radiology [address] [place] [address] 06/27/2025 10:30 AM EDT Appointment [facility] Inter[facility] Radiology [address] [place] [address] 07/04/2025 10:30 AM EDT Appointment [facility] Inter[facility] Radiology [address] [place] [address] 07/04/2025 11:30 AM EDT Appointment [facility] Inter[facility] Radiology [address] [place] [address] 07/09/2025 2:40 PM EDT Office Visit [facility] Bone & Mineral Metabolism [address], [address] [place] [address] Ar Dominique MD [address] [place] [address] 07/11/2025 10:30 AM EDT Appointment [facility] Radiology [address] [place] [address] 07/11/2025 11:30 AM EDT Appointment [facility]iology [address] [place] [address] 07/18/2025 10:30 AM EDT Appointment [facility] [address] [place] [address] 07/18/2025 11:30 AM EDT Appointment [facility] [address] [place] [address] 07/25/2025 10:30 AM EDT Appointment [facility] [address] [place] [address] 07/25/2025 11:30 AM EDT Appointment [facility] Inter[facility] Radiology [address] [place] [address] 07/31/2025 9:00 AM EDT Office Visit [facility] [address] [place] [address] Alvarez Zimmer MD [address] [place] [address] 08/20/2025 9:30 AM EDT Clinical Support [facility] [address] [facility] [address] [place] [address] 08/20/2025 10:30 AM EDT Social Work [facility] [address] [place] [address] Deysi Ortega [place], [place] [phone] 08/20/2025 11:00 AM EDT Office Visit [facility] [address] [place] [address] Jude Duque MD [address] [place] [address] 10/30/2025 1:20 PM EST Office Visit [facility] Endocrinology [address] [place] [address] Sharif Moreno, ROSY [address] [place] [address] documented as of this encounter [...] plan has been documented for the patient 04/23/2025 9:17 AM EDT documented as of this encounter Care Teams Bench Assembler Operator Relationship Specialty Start Date End Date Alvarez Zimmer MD [address] [place] [phone] PCP - General Family Medicine 12/07/24 Lea Fernando [address] [facility] [address] [place] [address] Embedded Processor Endocrinology 08/29/24 Rachel Ray APRN [address] [place] [address] Nurse Practitioner Gastroenterology 09/24/24 Tamera Isabel LPN VALUE-BASED TRANSFORMATION PROGRAM Licensed Practical Nurse 05/29/25 documented as of this encounter
--- OUTSIDE RECORDS SUMMARY | 2025-06-23 17:48 | XMS_ITS | Encounter Summary ---
Author Organization Healthcare Address [facility] [place] [address] Care Team Providers Care Apprentice Cosmetologist Name Role Phone Wilma Howard Ambar RUSH Primary Care Provider [phone] Lea Fernando Unavailable [phone] Rachel Ray MACHINE HAMPER MAKER Unavailable [phone] Taina Lyles MACHINE HAMPER MAKER Primary Care Provider [phone] Monique Tapia OFFICE HELPER Unavailable Unavailable Alvarez Zimmer MD Primary Care Provider [phone] Shaniqua Trevino OFFICE HELPER Unavailable Unavailable Tamera Isabel OFFICE HELPER Unavailable Unavailabl e Encounter Details Date Type Department Care Team (Late st Contact Info) Description 01/18/2024 Orders Only External Location [address] [place] [phone] Provider, External Social History Tobacco Use Types [...] Appointment [facility] Interventional Radiology [address] [place] [address] 06/27/2025 10:30 AM EDT Appointment [facility] [address] [place] [address] 07/04/2025 10:30 AM EDT Appointment [facility] [address] [place] [address] 07/04/2025 11:30 AM EDT Appointment [facility] Inter[facility] Radiology [address] [place] [address] 07/09/2025 2:40 PM EDT Office Visit [facility] Bone & Mineral Metabolism [address], [address] [place] [address] Ar Dominique MD [address] [place] [address] 07/11/2025 10:30 AM EDT Appointment [facility] Inter[facility] Radiology [address] [place] [address] 07/11/2025 11:30 AM EDT Appointment [facility] [address] [place] [address] 07/18/2025 10:30 AM EDT Appointment [facility] [address] [place] [address] 07/18/2025 11:30 AM EDT Appointment [facility] [address] [place] [address] 07/25/2025 10:30 AM EDT Appointment [facility] [address] [place] [address] 07/25/2025 11:30 AM EDT Appointment [facility] [address] [place] [address] 07/31/2025 9:00 AM EDT Office Visit [address] [phone] Alvarez Zimmer MD [address] [place] [address] 08/20/2025 9:30 AM EDT Clinical Support [facility] [place] [address] [place] [address] 08/20/2025 10:30 AM EDT Social Work [facility] [place] [address] [place] [address] [place] [address] 08/20/2025 11:00 AM EDT Office Visit [facility] [place] [address] [place] [address] Jude Duque MD [address] [place] [address] 10/30/2025 1:20 PM EST Office Visit [facility] Endocrinology [address] [place] [address] Sharif Moreno, DPNicole [address] [place] [address] documented as of this encounter Procedures Procedure Name Priority Date/Time Associated Diagnosis Comments XR ABDOMEN OUTSIDE IMAGES 01/18/2024 1:25 PM EST documented in this encounter Results * XR ABDOMEN OUTSIDE IMAGES (01/18/2024 1:25 PM EST) Anatomical Region Laterality Modality Radiographic Mariposa ging 01/18/2024 1:25 PM EST us External Provider IMG XR [...] documented as of this encounter Care Teams Apprentice Cosmetologist Relationship Specialty Start Date End Date Wilma Howard APRN [address] [place] [address] [place], [place] [id number] PCP - General 04/03/21 09/30/24 Taina Lyles, MACHINE HAMPER MAKER [address] [place] [address] [place], [place] [phone] PCP - General 10/01/24 12/06/24 Alvarez Zimmer MD [address] [place] [address] PCP - General Family Medicine 12/07/24 Lea Fernando [address] [place] [address] Technology Risk Intern Endocrinology 08/29/24 Rachel Ray MACHINE HAMPER MAKER [address] [place] [address] Nurse Practitioner Gastroenterology 09/24/24 Monique Tapia LPN VALUE-BASED [place] [address] TCM Nurse 11/28/24 12/28/24 Shaniqua Trevino LPN TCM Nurse 01/15/25 02/14/25 Tamera Isabel LPN VALUE-BASED TRANSFORMATION PROGRAM Licensed Practical Nurse 05/29/25 documented as of this encounter
--- OUTSIDE RECORDS SUMMARY | 2025-06-23 17:48 | XMS_ITS | Encounter Summary ---
Author Organization Healthcare Address [address] [place] [address] Care Team Providers Care Disassembler Product Name Role Phone Lea Fernando Unavailable [phone] Rachel Ray AUTO GLASS WORKER Unavailable [phone] Alvarez Zimmer MD Primary Care Provider [phone] Encounter Details Date Type Department Care Team (Latest Contact Info) Description 05/09/2025 Travel Social History Tobacco Use Types Packs/Day [...] often do you attend chur ch or faith services? Patient unable to answer 01/10/2025 Do [...] Recorded Patient Health Questionnaire-2 Score 1 05/07/2025 [facility] [...] time in the past 12 m [facility] [place], were you homeless or living in a [...] drink first t kennedy in the morning (EYE-GREEN INSPECTOR) to steady your nerves or to [...] Upcoming Encounters Date Type Department Care Team ([facility] st Contact Info) Description 06/27/2025 9:30 AM EDT Appointment [facility] Interventional Radiology [address] [place] [address] 06/27/2025 10:30 AM EDT Appointment [facility] Interventional Radiology [address] [place] [address] 07/04/2025 10:30 AM EDT Appointment [facility] Inter[facility] Radiology [address] [place] [address] 07/04/2025 11:30 AM EDT Appointment [facility] Interventional Radiology [address] [place] [address] 07/09/2025 2:40 PM EDT Office Visit [facility] [place] [facility] [address] [facility], [address] [place] [address] Ar Dominique MD [address] [facility] [address] [place] [address] 07/11/2025 10:30 AM EDT Appointment [facility] [address] [place] [address] 07/11/2025 11:30 AM EDT Appointment [facility] [address] [place] [address] 07/18/2025 10:30 AM EDT Appointment [facility] [address] [place] [address] 07/18/2025 11:30 AM EDT Appointment [facility]iology [address] [place] [address] 07/25/2025 10:30 AM EDT Appointment [facility] Inter[facility] Radiology [address] [place] [address] 07/25/2025 11:30 AM EDT Appointment [facility] Interventional Radiology [address] [place] [address] 07/31/2025 9:00 AM EDT Office Visit [facility] [address] [place] [address] Alvarez Zimmer MD [address] [place] [address] 08/20/2025 9:30 AM EDT Clinical Support [facility] [place] [address] [place] [address] 08/20/2025 10:30 [address] [facility] [place] [address] [place] [address] Deysi Ortega [place], [place] [phone] 08/20/2025 11:00 AM EDT Office Visit [facility] [place] [address] [place] [address] Jude Duque MD [address] [place] [address] 10/30/2025 1:20 PM EST Office Visit [facility] Endocrinology [address] [place] [address] Sharif Moreno, DPNicole [address] [place] [address] documented as of this encounter [...] documented as of this encounter Care Teams Disassembler Product Relationship Specialty Start Date End Date Alvarez Zimmer MD [address] [place] [address] PCP - General Family Medicine 12/07/24 Lea Fernando [address] [place] [address] Trimming Press Operator Endocrinology 08/29/24 Rachel Ray, AUTO GLASS WORKER [address] [place] [address] Nurse Practitioner Gastroenterology 09/24/24 documented as of this encounter
--- OUTSIDE RECORDS SUMMARY | 2025-06-23 17:48 | XMS_ITS | Encounter Summary ---
Author Organization Healthcare [place] [address] Care Team Providers Care Machine Cage Maker Name Role Phone Wilma Howard Ambar RUSH Primary Care Provider [phone] Lea Fernando Unavailable [phone] Rachel Ray STUDENT SERVICES REP Unavailable [phone] Taina Lyles STUDENT SERVICES REP Primary Care Provider [phone] Monique Tapia ETCHER APPRENTICE PHOTOENGRAVING Unavailable Unavailable Alvarez Zimmer MD Primary Care Provider [phone] Shaniqua Trevino ETCHER APPRENTICE PHOTOENGRAVING Unavailable Unavailable Tamera Isabel ETCHER APPRENTICE PHOTOENGRAVING Unavailable Unavailabl e Encounter Details Date Type Department Care Team (Late st Contact Info) Description 02/02/2024 Orders Only External Location [address] [place] [phone] Provider, External Social History Tobacco Use Types [...] Appointment [facility] [address] [place] [address] 06/27/2025 10:30 AM EDT Appointment [facility] [address] [place] [address] 07/04/2025 10:30 AM EDT Appointment [facility] [address] [place] [address] 07/04/2025 11:30 AM EDT Appointment [facility] Radiology [address] [place] [address] 07/09/2025 2:40 PM EDT Office Visit [facility] Bone & Mineral Metabolism [address], [address] [place] [address] Ar Dominique MD [address] [place] [address] 07/11/2025 10:30 AM EDT Appointment [facility] [address] [place] [address] 07/11/2025 11:30 AM EDT Appointment [facility] [address] [place] [address] 07/18/2025 10:30 AM EDT Appointment [facility] [address] [place] [address] 07/18/2025 11:30 AM EDT Appointment [facility] [address] [place] [address] 07/25/2025 10:30 AM EDT Appointment [facility] [address] [place] [address] 07/25/2025 11:30 AM EDT Appointment [facility] [address] [place] [address] 07/31/2025 9:00 AM EDT Office Visit [address] [phone] Alvarez Zimmer MD [address] [place] [address] 08/20/2025 9:30 AM EDT Clinical Support [facility] [place] [address] [place] [address] 08/20/2025 10:30 AM EDT Social Work [facility] [place] [address] [place] [address] [place] [address] 08/20/2025 11:00 AM EDT Office Visit [facility] [place] [address] [place] [address] Jude Duque MD [address] [place] [address] 10/30/2025 1:20 PM EST Office Visit [facility] Endocrinology [address] [place] [address] Sharif Moreno, DPNicole [address] [place] [address] documented as of this encounter Procedures Procedure Name Priority Date/Time Associated Diagnosis Comments XR THORACIC OUTSIDE IMAGES 02/02/2024 10:06 AM EDT documented in this encounter Results * XR THORACIC OUTSIDE IMAGES (02/02/2024 10:06 AM EDT) Anatomical Region Laterality Modality Radiographic Mariposa ging 02/02/2024 10:0 6 AM EDT us External Provider IMG XR [...] documented as of this encounter Care Teams Machine Cage Maker Relationship Specialty Start Date End Date Wilma Howard, STUDENT SERVICES REP [address] [place], [place] [id number] PCP - General 04/03/21 09/30/24 Taina Lyles, STUDENT SERVICES REP [address] [place] [address] [place], [place] [id number] PCP - General 10/01/24 12/06/24 Alvarez Zimmer MD [address] [place] [address] PCP - General Family Medicine 12/07/24 Lea Fernando [address] [facility] [address] [place] [address] Set Designer Endocrinology 08/29/24 Rachel Ray, STUDENT SERVICES REP [address] [facility] [address] [place] [address] Nurse Practitioner Gastroenterology 09/24/24 Monique Tapia LPN VALUE-BASED [place] [address] TCM Nurse 11/28/24 12/28/24 Shaniqua Trevino LPN TCM Nurse 01/15/25 02/14/25 Tamera Isabel LPN VALUE-BASED TRANSFORMATION PROGRAM Licensed Practical Nurse 05/29/25 documented as of this encounter
--- OUTSIDE RECORDS SUMMARY | 2025-06-23 17:49 | XMS_ITS | Encounter Summary ---
Author Organization Healthcare Address [address] [place] [address] Care Team Providers Care Agriculture Internship Name Role Phone Lea Fernando Unavailable [phone] Rachel Ray CENTRAL STERILE TECH Unavailable [phone] Alvarez Zimmer MD Primary Care Provider [phone] Encounter Details Date Type Department Care Team (Latest Contact Info) Description 05/02/2025 Travel Social History Tobacco Use Types Packs/Day [...] often do you attend chur ch or taoist services? Patient unable to answer 01/10/2025 Do [...] in the past 12 m [facility], were you homeless or living in [...] drink first t kennedy in the morning (EYE-PORCELAIN TECHNICIAN) to steady your nerves or to [...] Allison Mckee documented as of this encounter Plan of Treatment Upcoming Encounters Date Type Department Care Team (Late st Contact Info) Description 06/27/2025 9:30 AM EDT Appointment [facility] [address] [place] [address] 06/27/2025 10:30 AM EDT Appointment [facility] [address] [place] [address] 07/04/2025 10:30 AM EDT Appointment [facility] [address] [place] [address] 07/04/2025 11:30 AM EDT Appointment [facility] [address] [place] [address] 07/09/2025 2:40 PM EDT Office Visit [facility] [address] [facility], [address] [place] [address] Ar Dominique MD [address] [facility] [address] [place] [address] 07/11/2025 10:30 AM EDT Appointment [facility] [address] [place] [address] 07/11/2025 11:30 AM EDT Appointment [facility] [address] [place], [place] [address] 07/18/2025 10:30 AM EDT Appointment [facility] [address] [place], [place] [address] 07/18/2025 11:30 AM EDT Appointment [facility] [address] [place], [place] [address] 07/25/2025 10:30 AM EDT Appointment [facility] [address] [place], [place] [address] 07/25/2025 11:30 AM EDT Appointment [facility] [address] [place] [address] 07/31/2025 9:00 AM EDT Office Visit [address] [address] Alvarez Zimmer MD [address] [place] [address] 08/20/2025 9:30 AM EDT Clinical Support [facility] [place] [address] [place] [address] 08/20/2025 10:[address] [facility] [place] [address] [place] [address] Deysi Ortega [place], [place] [id number] 08/20/2025 11:00 AM EDT Office Visit [facility] [place] [address] [place] [address] Jude Duque MD [address] [facility] [address] [place] [address] 10/30/2025 1:20 PM EST [facility] [address] [place] [address] Sharif Moreno, DPNicole [address] [place] [address] documented as of this encounter [...] documented as of this encounter Care Teams Agriculture Internship Relationship Specialty Start Date End Date Alvarez Zimmer MD [address] [place] [address] PCP - General Family Medicine 12/07/24 Lea Fernando [address] [place] [address] Under C[facility] Endocrinology 08/29/24 Rachel Ray APRN [address] [place] [address] Nurse Practitioner Gastroenterology 09/24/24 documented as of this encounter
--- OUTSIDE RECORDS SUMMARY | 2025-06-23 17:49 | XMS_ITS | Encounter Summary ---
Author Organization [facility] Address [address] [place] [address] Care Team Providers Care Dental Technician Metal Name Role Phone AyahTor Lea Clarke Unavailable [phone] Rachel Ray V BLOCK SAW OPERATOR Unavailable [phone] Alvarez Zimmer MD Primary Care Provider Tamera Isabel PROGRESS WORKER Unavailable Unavailabl e Reason for Visit * Reason Onset Date Comments Med Refill 03/16/2025 Encounter Details Date Type Department Care Team (Late st Contact Info) Description 03/16/2025 Refill [facility] [address] [place] [address] Alvarez Zimmer MD [address] [place] [address] Social History Tobacco Use Types [...] week 01/10/2025 How often do you attend [facility] or mormonism services? Patient unable to [...] Date Recorded Patient Health Questionnaire-2 Score 0 03/06/2025 [facility] - [...] the past 12 m [facility], were you homeless or living [...] drink first t kennedy in the morning (EYE-BAND MASTER) to steady your nerves or to get [...] Encounters Date Type Department Care Team ([facility] Contact Info) Description 06/27/2025 9:30 AM EDT Appointment [facility] [address] [place] [address] 06/27/2025 10:30 AM EDT Appointment [facility] [address] [place] [address] 07/04/2025 10:30 AM EDT Appointment [facility] [address] [place] [address] 07/04/2025 11:30 AM EDT Appointment [facility] [address] [place] [address] 07/09/2025 2:40 PM EDT [facility] [address], [address] [place] [address] Ar Dominique MD [address] [place] [address] 07/11/2025 10:30 AM EDT Appointment [facility] [address] [place] [address] 07/11/2025 11:30 AM EDT Appointment [facility] [address] [place] [address] 07/18/2025 10:30 AM EDT Appointment [facility] [address] [place] [address] 07/18/2025 11:30 AM EDT Appointment [facility] [address] [place] [address] 07/25/2025 10:30 AM EDT Appointment [facility] [address] [place] [address] 07/25/2025 11:30 AM EDT Appointment [facility] [address] [place] [address] 07/31/2025 9:00 AM EDT Office Visit [facility] [address] [place] [address] Alvarez Zimmer MD [address] [place] [address] 08/20/2025 9:30 AM EDT Clinical Support [facility] [address] [place] [address] 08/20/2025 10:30 AM EDT Social Work [facility] [place] [address] [place] [address] [place] [address] 08/20/2025 11:00 AM EDT Office Visit [facility] [address] [place] [address] Jude Duque MD [address] [place] [address] 10/30/2025 1:20 PM EST Office Visit [facility] Endocrinology [address] [place] [address] Sharif Moreno, DPM [address] [facility] [address] [place] [address] documented as of this encounter Visit Diagnoses Not on filedocumented in this encounter Additional Health Concerns Assessment Noted Time PHQ-9 Depression Total Score: 0 03/06/20 1:21 PM EDT A fall risk assessment has been complete d for the patient 03/05/2025 10:45 AM EDT A Body Mass Index follow-up plan has been documented for the patient 03/14/2025 9:55 AM EDT documented as of this encounter Care Teams Dental Technician Metal Relationship Specialty Start Date End Date [place] [address] PCP - General Family Medicine 12/07/24 Lea Fernando [address] [facility] [address] [place] [address] Inside Finisher Endocrinology 08/29/24 Rachel Ray APRN [address] [facility] [address] [place] [address] Nurse Practitioner Gastroenterology 09/24/24 Tamera Isabel LPN VALUE-BASED TRANSFORMATION PROGRAM Licensed Practical Nurse 05/29/25 documented as of this encounter
--- OUTSIDE RECORDS SUMMARY | 2025-06-23 17:49 | XMS_ITS | Encounter Summary ---
Author Organization Healthcare [place] [address] Care Team Providers Care Clinical Account Liaison Name Role Phone Wilma Howard Ambar RUSH Primary Care Provider [phone] Lea Fernando Unavailable [phone] Rachel Ray BIT SETTER Unavailable [phone] Taina Lyles BIT SETTER Primary Care Provider [phone] Monique Tapia INDUSTRIAL GAS FITTER HELPER Unavailable Unavailable Alvarez Zimmer MD Primary Care Provider [phone] Shaniqua Trevino INDUSTRIAL GAS FITTER HELPER Unavailable Unavailable Tamera Isabel INDUSTRIAL GAS FITTER HELPER Unavailable Unavailabl e Encounter Details Date Type Department Care Team (Late st Contact Info) Description 04/23/2024 Orders Only External Location [address] [place] [phone] Provider, External Social History Tobacco Use Types [...] Appointment [facility] [address] [place] [address] 06/27/2025 10:30 AM EDT Appointment [facility] [address] [place] [address] 07/04/2025 10:30 AM EDT Appointment [facility] [address] [place] [address] 07/04/2025 11:30 AM EDT Appointment [facility] [address] [place] [address] 07/09/2025 2:40 PM EDT Office Visit [facility] [address], [address] [place] [address] Ar Dominique MD [address] [place] [address] 07/11/2025 10:30 AM EDT Appointment [facility] [address] [place] [address] 07/11/2025 11:30 AM EDT Appointment [facility] [address] [place] [address] 07/18/2025 10:30 AM EDT Appointment [facility] [address] [place] [address] 07/18/2025 11:30 AM EDT Appointment [facility] [address] [place] [address] 07/25/2025 10:30 AM EDT Appointment [facility] [address] [place] [address] 07/25/2025 11:30 AM EDT Appointment [facility] [address] [place] [address] 07/31/2025 9:00 AM EDT Office Visit [address] [phone] Alvarez Zimmer MD [address] [place] [address] 08/20/2025 9:30 AM EDT Clinical Support [facility] [place] [address] [place] [address] 08/20/2025 10:[address] [facility] [place] [address] [place] [address] [place] [address] 08/20/2025 11:00 AM EDT Office Visit [facility] [place] [address] [place] [address] Jude Duque MD [address] [place] [address] 10/30/2025 1:20 PM EST Office Visit [facility] [address] [place] [address] Sharif Moreno, DPNicole [address] [place] [address] documented as of this encounter Procedures Procedure Name Priority Date/Time Associated Diagnosis Comments XR ABDOMEN OUTSIDE IMAGES 04/23/2024 8:50 AM EDT documented in this encounter Results * XR ABDOMEN OUTSIDE IMAGES (04/23/2024 8:50 AM EDT) Anatomical Region Laterality Modality Radiographic [place] ging 04/23/2024 8:50 AM EDT us External Provider IMG XR [...] plan has been documented for the patient 03/06/2024 11:48 AM EDT documented as of this encounter Care Teams Clinical Account Liaison Relationship Specialty Start Date End Date Wilma Howard, BIT SETTER [address] [place], [place] [id number] PCP - General 04/03/21 09/30/24 Taina Lyles, BIT SETTER [address] [place] [address] [place], [place] [phone] PCP - General 10/01/24 12/06/24 Alvarez Zimmer MD [address] [place] [address] PCP - General Family Medicine 12/07/24 Lea Fernando [address] [facility] [address] [place] [address] Ski Maker Endocrinology 08/29/24 Rachel Ray, BIT SETTER [address] [facility] [address] [place] [address] Nurse Practitioner Gastroenterology 09/24/24 Monique Tapia LPN VALUE-BASED [place] [address] TCM Nurse 11/28/24 12/28/24 Shaniqua Trevino LPN TCM Nurse 01/15/25 02/14/25 Tamera Isabel LPN VALUE-BASED TRANSFORMATION PROGRAM Licensed Practical Nurse 05/29/25 documented as of this encounter
--- OUTSIDE RECORDS SUMMARY | 2025-06-23 17:49 | XMS_ITS | Encounter Summary ---
Author Organization [facility] Address [address] [place] [address] Care Team Providers Care Property Handler Name Role Phone Lenoresimeon Lea Clarke Unavailable [phone] Rachel Ray LIAISON OFFICER Unavailable [phone] Alvarez Zimmer MD Primary Care Provider [phone] Encounter Details Date Type Department Care Team (Late st Contact Info) Description 04/04/2025 Telephone [facility] [address] [place] [address] Alvarez Zimmer MD [address] [place] [address] Social History Tobacco Use Types [...] you attend [facility] or nondenominational services? Patient unable to answer 01/10/2025 Do you belong to any clubs o r organizations such as sabianism groups, unions, fraDocSpera or athletic groups, or school groups? Patient [...] 05/07/2025 [facility] [...] any time in the past 12 m [facility], were you homeless or living in [...] drink first t kennedy in the morning (EYE-MOLD CAR PUSHER) to steady your nerves or to get [...] Little interest or pleasure in doing things More than half the days 04/10/2025 10:50 AM TAMMYT Juanis Cuello Feeling down, depressed, or hopeless Not at all 04/10/2025 10:50 AM EDT Amanda Cuello Patient Health Questionnaire-2 Score 2 04/10/2025 10:50 AM EDT Florencio Cuello B * Calculated C-SSRS Risk Score (Lifetime/Recent) Answer Date of Assessment Author No Risk Indicated 05/03/2025 2:49 PM EDT Carmel Neal RN * If you checked off any problems on this questionnaire so far, Question Answer Date of Assessment Author How difficult have these problems made it for you to do your work, take care of things at home, or get along with other people? Not difficult at all 04/10/2025 10:50 AM EDT Laila Cuello * Question Answer Date of Assessment Author 1. Wish to be (Past 1 Month) No 025 2:49 PM TAMMYT Glenn Neal RN 2. Non-Specific Active Suici liz Thoughts (Past 1 Month) No 05/03/2025 2:49 PM TAMMYT Glenn Neal RN 6. Suicidal Behavior (Lifetime) No 2:49 PM EDT Glenn Neal RN documented as of this encounter Miscellaneous Notes * Telephone Encounter - Alvarez Zimmer MD - 04/09/2025 4:37 PM EDT Noted * Telephone Encounter - Gissel Marino - 04/05/2025 11:21 AM EDT Called [facility] and informed that I tried to call pt to let her know what Dr. Zimmer had said so she was informed. She stated the pt told her that she is about to have surgery and they informed her she could possibly come back to after surgery. * Telephone Encounter - Gissel Marino - 04/05/2025 11:20 AM EDT Called pt and vm box full. * Telephone Encounter - Kylee Dela Cruz - 04/04/2025 4:56 PM EDT Clinical Concern/Question Reason for Call: [facility] did receive pts referral but insurance gave a full denial for anymore visits. Best contact number: Other: [phone] Optimal time of day to reach caller: ANYTIME Additional comments/information from caller: None Note: Please do not reply to this message. Follow-up communication and further actions as a result of this message need to be communicated with the patient directly, if the patient is not active onMyChart. If the patient is active on MyChart, they will receive notification of the communication/outcome via [employer]. documented in this encounter Plan of Treatment Upcoming Encounters Date Type Department Care Team (Late st Contact Info) Description 06/27/2025 9:30 AM EDT Appointment [facility]iology [address] [place] [phone] 06/27/2025 10:30 AM EDT Appointment [facility] [address] [place] [address] 07/04/2025 10:30 AM EDT Appointment [facility] [address] [place] [address] 07/04/2025 11:30 AM EDT Appointment [facility] [address] [place] [address] 07/09/2025 2:40 PM EDT Office Visit [facility] [address], [address] [place] [address] Ar Dominique MD [address] [place] [address] 07/11/2025 10:30 AM EDT Appointment [facility] [address] [place] [address] 07/11/2025 11:30 AM EDT Appointment [facility] [address] [place] [address] 07/18/2025 10:30 AM EDT Appointment [facility] [address] [place] [address] 07/18/2025 11:30 AM EDT Appointment [facility] [address] [place] [address] 07/25/2025 10:30 AM EDT Appointment [facility] [address] [place] [address] 07/25/2025 11:30 AM EDT Appointment [facility] [address] [place] [address] 07/31/2025 9:00 AM EDT Office Visit [address] [address] Alvarez Zimmer MD [address] [place] [address] 08/20/2025 9:30 AM EDT Clinical Support [facility] [place] [address] [place] [address] 08/20/2025 10:30 AM EDT Social Work [facility] [place] [address] [place] [address] [place] [address] 08/20/2025 11:00 AM EDT Office Visit [facility] [place] [address] [place] [address] Jude Duque MD [address] [place] [address] 10/30/2025 1:20 PM EST [facility] [address] [place] [address] Sharif Moreno, ROSY [address] [place] [address] documented as of this encounter Visit Diagnoses Not on filedocumented in this encounter Additional Health Concerns Assessment Noted Time PHQ-9 Depression Total Score: 0 03/06/20 1:21 PM EDT A fall risk assessment has been complete d for the patient 03/05/2025 10:45 AM EDT A Body Mass Index follow-up plan has been documented for the patient 04/04/2025 10:47 AM EDT documented as of this encounter Care Teams Property Handler Relationship Specialty Start Date End Date Alvarez Zimmer MD [address] [place] [address] PCP - General Family Medicine 12/07/24 Lea Fernando [address] [facility] [address] [place] [address] [place] [facility] 08/29/24 Rachel Ray APRN [address] [facility] [address] [place] [address] Nurse Practitioner Gastroenterology 09/24/24 documented as of this encounter
--- OUTSIDE RECORDS SUMMARY | 2025-06-23 17:49 | XMS_ITS | Encounter Summary ---
Author Organization Healthcare Address [address] [place] [address] Care Team Providers Care Manager Long Term Care Name Role Phone Lea Fernando Unavailable [phone] Rachel Ray YOUTH PROBATION OFFICER Unavailable [phone] Alvarez Zimmer MD Primary Care Provider [phone] Tamera Isabel LPN Unavailable Unavailabl e Encounter Details Date Type Department Care Team (Late st Contact Info) Description 04/04/2025 Results Follow-Up [facility] Medicine Specialties [address] [place] [address] Octavia Herrera, MARIA GUADALUPE [address] [place] [address] Social History Tobacco Use Types Packs/Day Years [...] time in the past 12 m [facility], were you homeless or living in [...] do you attend chur or bahai services? Never 05/29/2025 Do you [...] one occasion? Never 06/05/2025 [facility] - Occupational Stress Questionnaire Answer [...] time in the past 12 m [facility], were you homeless or living in [...] drink first t kennedy in the morning (EYE-PIPE FITTER MARINE) to steady your nerves or to get [...] 05/29/2025 2:26 PM EDT Tamera Isabel LPN * Over the past 2 weeks, how often have you been bothered by any of the following problems? Question Answer Date of Assessment Author Little interest or pleasure in doing things Not at all 05/07/2025 9:08 AM Tamera Guevara Feeling down, depressed, or hopeless Several days 05/07/2025 9:08 AM TAMMYT Tamera Carter Patient Health Questionnaire -2 Score 1 05/07/2025 9:08 AM Tamera Guevara * Calculated C-SSRS Risk Score (Lifetime/Recent) Answer Date of Assessment Author No Risk Indicated 05/31/2025 12:55 PM EDT Deysi Blanca RN * If you checked off any problems on this questionnaire so far, Question Answer Date of Assessment Author How difficult have these problems made it for you to do your work, take care of things at home, or get along with other people? Not difficult at all 04/10/2025 10:50 AM EDT Laila Cuello * How difficult have these problems made it for you to do your work, take care of things at home, or get along with other people? Answer Date of Assessment Author Somewhat difficult 05/07/2025 9:08 AM Tamera Guevara * Question Answer Date of Assessment Author 1. Wish to be (Past 1 Month) No 025 12:55 PM TAMMYT Deysi Blanca, RN 2. Non-Specific Active Suici liz Thoughts (Past 1 Month) No 05/31/2025 12:55 PM EDT Bridger Blanca, RN 6. Suicidal Behavior (Lifetime) No 12:55 PM EDT Deysi Blanca, RN documented as of this encounter Plan of Treatment Upcoming Encounters Date Type Department Care Team (Late st Contact Info) Description 06/27/2025 9:30 AM EDT Appointment [facility] [address] [place] [address] 06/27/2025 10:30 AM EDT Appointment [facility] [address] [place] [address] 07/04/2025 10:30 AM EDT Appointment [facility] [address] [place] [address] 07/04/2025 11:30 AM EDT Appointment [facility] [address] [place] [address] 07/09/2025 2:40 PM EDT Office Visit [facility] [address], [address] [place] [address] Ar Dominique MD [address] [place] [address] 07/11/2025 10:30 AM EDT Appointment [facility] [address] [place] [address] 07/11/2025 11:30 AM EDT Appointment [facility] [address] [place] [address] 07/18/2025 10:30 AM EDT Appointment [facility] [address] [place] [address] 07/18/2025 11:30 AM EDT Appointment [facility] [address] [place] [address] 07/25/2025 10:30 AM EDT Appointment [facility] [address] [place] [address] 07/25/2025 11:30 AM EDT Appointment [facility] [address] [place] [address] 07/31/2025 9:00 AM EDT Office Visit [facility] [address] [place] [address] Alvarez Zimmer MD [address] [place] [address] 08/20/2025 9:30 AM EDT Clinical Support [facility] [place] [address] [place] [address] 08/20/2025 10:[address] [facility] [place] [address] [place] [address] Deysi Ortega [place], [place] [id number] 08/20/2025 11:00 AM EDT Office Visit [facility] [place] [address] [place] [address] Jude Duque MD [address] [place] [address] 10/30/2025 1:20 PM EST Office Visit [facility] Endocrinology [address] [place] [address] Sharif Moreno, DPNicole [address] [place] [address] documented as of this encounter [...] as of this encounter Care Teams Manager Long Term Care Relationship Specialty Start Date End Date Alvarez Zimmer MD [address] [place] [address] PCP - General Family Medicine 12/07/24 Lea Fernando [address] [place] [address] Drug Abuse Counselor Endocrinology 08/29/24 Rachel Ray APRN [address] [facility] [address] [place] [address] Nurse Practitioner Gastroenterology 09/24/24 Tamera Isabel LPN VALUE-BASED TRANSFORMATION PROGRAM Licensed Practical Nurse 05/29/25 documented as of this encounter
--- OUTSIDE RECORDS SUMMARY | 2025-06-23 17:49 | XMS_ITS | Encounter Summary ---
Author Organization Healthcare Address [address] [place] [address] Care Team Providers Care Jumpbasting Armhole Baster Name Role Phone Lea Fernando Unavailable [phone] Rachel Ray POOL LIFEGUARD Unavailable [phone] Alvarez Zimmer MD Primary Care Provider Encounter Details Date Type Department Care Team (Latest Contact Info) Description 04/25/2025 Travel Social History Tobacco Use Types Packs/Day [...] often do you attend chur ch or alevism services? Patient unable to answer 01/10/2025 Do [...] time in the past 12 m [facility], were you homeless or living in [...] first t kennedy in the morning (EYE-PROCESS TRAINER) to steady your nerves or to [...] Upcoming Encounters Date Type Department Care Team ([facility] st Contact Info) Description 06/27/2025 9:30 AM EDT Appointment [facility] [address] [place] [address] 06/27/2025 10:30 AM EDT Appointment [facility] [address] [place] [address] 07/04/2025 10:30 AM EDT Appointment [facility] [address] [place] [address] 07/04/2025 11:30 AM EDT Appointment [facility] [address] [place] [address] 07/09/2025 2:40 PM EDT Office Visit [facility] [place] [facility] [address] [facility], [address] [place] [address] Ar Dominique MD [address] [facility] [address] [place] [address] 07/11/2025 10:30 AM EDT Appointment [facility] [address] [place] [address] 07/11/2025 11:30 AM EDT Appointment [facility] [address] [place] [address] 07/18/2025 10:30 AM EDT Appointment [facility] [address] [place] [address] 07/18/2025 11:30 AM EDT Appointment [facility] [address] [place] [address] 07/25/2025 10:30 AM EDT Appointment [facility] [address] [place] [address] 07/25/2025 11:30 AM EDT Appointment [facility] [address] [place] [address] 07/31/2025 9:00 AM EDT Office Visit [facility] [address] [place] [address] Alvarez Zimmer MD [address] [place] [address] 08/20/2025 9:30 AM EDT Clinical Support [facility] [place] [address] [place] [address] 08/20/2025 10:[address] [facility] [place] [address] [place] [address] Deysi Ortega [place], [place] [id number] 08/20/2025 11:00 AM EDT Office Visit [facility] [place] [address] [place] [address] Jude Duque MD [address] [place] [address] 10/30/2025 1:20 PM EST Office Visit [facility] Endocrinology [address] [place] [address] Sharif Moreno, DPNicole [address] [place] [address] documented as of this encounter [...] documented as of this encounter Care Teams Jumpbasting Armhole Baster Relationship Specialty Start Date End Date Alvarez Zimmer MD [address] [place] [address] PCP - General Family Medicine 12/07/24 Lea Fernando [address] [place] [address] Enamel Drier Endocrinology 08/29/24 Rachel Ray, POOL LIFEGUARD [address] [place] [address] Nurse Practitioner Gastroenterology 09/24/24 documented as of this encounter
--- OUTSIDE RECORDS SUMMARY | 2025-06-23 17:49 | XMS_ITS | Encounter Summary ---
Author Organization Healthcare Address [address] [place] [address] Care Team Providers Care Flatbed Press Operator Name Role Phone Lea Fernando Unavailable [phone] Rachel Ray INSPECTOR HEATING AND REFRIGERATION Unavailable [phone] Alvarez Zimmer MD Primary Care Provider [phone] Encounter Details Date Type Department Care Team (Latest Contact Info) Description 04/30/2025 Travel Social History Tobacco Use Types Packs/Day [...] Recorded Patient Health Questionnaire-2 Score 2 04/10/2025 [facility] - [...] place to sleep or slept in a mcc (including now)? Yes 08/29/2024 PHQ-9 Answer Date [...] were you homeless or living in a mcc (including now)? No 03/06/2025 CAGE ASSESSMENT Answer [...] drink first t kennedy in the morning (EYE-CHOCOLATE PRODUCTION MACHINE OPERATOR) to steady your nerves or to [...] Upcoming Encounters Date Type Department Care Team ([facility] st Contact Info) Description 06/27/2025 9:30 AM EDT Appointment [facility] Radiology [address] [place] [address] 06/27/2025 10:30 AM EDT Appointment [facility] [address] [place] [address] 07/04/2025 10:30 AM EDT Appointment [facility] [address] [place] [address] 07/04/2025 11:30 AM EDT Appointment [facility] [address] [place] [address] 07/09/2025 2:40 PM EDT Office Visit [facility] [place] [facility] [address], [address] [place] [address] Ar Dominique MD [address] [place] [address] 07/11/2025 10:30 AM EDT Appointment [facility] [address] [place] [address] 07/11/2025 11:30 AM EDT Appointment [facility] [address] [place] [address] 07/18/2025 10:30 AM EDT Appointment [facility] [address] [place] [address] 07/18/2025 11:30 AM EDT Appointment [facility] [address] [place] [address] 07/25/2025 10:30 AM EDT Appointment [facility] [address] [place] [address] 07/25/2025 11:30 AM EDT Appointment [facility] [address] [place] [address] 07/31/2025 9:00 AM EDT Office Visit [facility] [address] [place] [address] Alvarez Zimmer MD [address] [place] [address] 08/20/2025 9:30 AM EDT Clinical Support [facility] [place] [address] [place] [address] 08/20/2025 10:30 AM EDT Social Work [facility] [place] [address] [place] [address] Deysi Ortega [place], [place] [address] 08/20/2025 11:00 AM EDT Office Visit [facility] [place] [address] [place] [address] Jude Duque MD [address] [place] [address] 10/30/2025 1:20 PM EST Office [facility] Endocrinology [address] [place] [address] Sharif Moreno, DPNicole [address] [place] [address] documented as of this encounter [...] documented as of this encounter Care Teams Flatbed Press Operator Relationship Specialty Start Date End Date Alvarez Zimmer MD [address] [place] [address] PCP - General Family Medicine 12/07/24 Lea Fernando [address] [place] [address] Hadoop Architect Endocrinology 08/29/24 Rachel Ray, INSPECTOR HEATING AND REFRIGERATION [address] [place] [address] Nurse Practitioner Gastroenterology 09/24/24 documented as of this encounter
--- OUTSIDE RECORDS SUMMARY | 2025-06-23 17:49 | XMS_ITS | Encounter Summary ---
Author Organization [facility] Address [facility] [place] [address] Care Team Providers Care Director Cpg Name Role Phone Wilma Howard Ambar RUSH Primary Care Provider [phone] Lea Fernando Unavailable [phone] Rachel Ray REGISTERED LAND SURVEYOR Unavailable [phone] Taina Lyles REGISTERED LAND SURVEYOR Primary Care Provider [phone] Monique Tapia SUPERVISOR LOOPING Unavailable Unavailable Alvarez Zimmer MD Primary Care Provider [phone] Shaniqua Trevino SUPERVISOR LOOPING Unavailable Unavailable Tamera Isabel SUPERVISOR LOOPING Unavailable Unavailabl e Encounter Details Date Type Department Care Team (Late st Contact Info) Description 05/23/2024 Orders Only External Location [address] [place] [id number] Provider, External Social History Tobacco Use Types [...] [facility] [address] [place] [address] 06/27/2025 10:30 AM EDT Appointment [facility] [address] [place] [address] 07/04/2025 10:30 AM EDT Appointment [facility] [address] [place] [address] 07/04/2025 11:30 AM EDT Appointment [facility] [address] [place] [address] 07/09/2025 2:40 PM EDT Office Visit [facility] Bone & Mineral Metabolism [address] [place] [address] Ar Dominique MD [address] [place] [address] 07/11/2025 10:30 AM EDT Appointment [facility] [address] [place] [address] 07/11/2025 11:30 AM EDT Appointment [facility] [address] [place] [address] 07/18/2025 10:30 AM EDT Appointment [facility] [address] [place] [address] 07/18/2025 11:30 AM EDT Appointment [facility] [address] [place] [address] 07/25/2025 10:30 AM EDT Appointment [facility] [address] [place] [address] 07/25/2025 11:30 AM EDT Appointment [facility] [address] [place] [address] 07/31/2025 9:00 AM EDT Office Visit [address] [phone] Alvarez Zimmer MD [address] [place] [address] 08/20/2025 9:30 AM EDT Clinical Support [facility] [place] [address] [place] [address] 08/20/2025 10:30 AM EDT Social Work [facility] [place] [address] [place] [address] [place] [address] 08/20/2025 11:00 AM EDT Office Visit [facility] [place] [address] [place] [address] Jude Duque MD [address] [place] [address] 10/30/2025 1:20 PM EST Office Visit [facility] Endocrinology [address] [place] [address] Sharif Moreno, DPNicole [address] [place] [address] documented as of this encounter Procedures Procedure Name Priority Date/Time Associated Diagnosis Comments XR ABDOMEN OUTSIDE IMAGES 05/23/2024 12:10 PM EDT documented in this encounter Results * XR ABDOMEN OUTSIDE IMAGES (05/23/2024 12:10 PM EDT) Anatomical Region Laterality Modality Radiographic Mariposa ging 05/23/2024 12:1 0 PM EDT us External Provider IMG XR [...] as of this encounter Care Teams Director Cpg Relationship Specialty Start Date End Date Wilma Howard, ADRI [address] [place], [place] [id number] PCP - General 04/03/21 09/30/24 Taina Lyles, REGISTERED LAND SURVEYOR [address] [place] [address] [place], [place] [id number] PCP - General 10/01/24 12/06/24 Alvarez Zimmer MD [address] [place] [address] PCP - General Family Medicine 12/07/24 Lea Fernando [address] [facility] [address] [place] [address] Puzzle Assembler Endocrinology 08/29/24 Rachel Ray, REGISTERED LAND SURVEYOR [address] [facility] [address] [place] [address] Nurse Practitioner Gastroenterology 09/24/24 Monique Tapia LPN VALUE-BASED [place] [address] TCM Nurse 11/28/24 12/28/24 Shaniqua Trevino LPN TCM Nurse 01/15/25 02/14/25 Tamera Isabel LPN VALUE-BASED TRANSFORMATION PROGRAM Licensed Practical Nurse 05/29/25 documented as of this encounter
--- OUTSIDE RECORDS SUMMARY | 2025-06-23 17:49 | XMS_ITS | Encounter Summary ---
Author Organization [facility] Address [address] [place] [address] Care Team Providers Care Body Cleaner Name Role Phone Lenoresimeon Lea Clarke Unavailable [phone] Rachel Ray POLO COACH Unavailable [phone] Alvarez Zimmer MD Primary Care Provider [phone] Encounter Details Date Type Department Care Team (Late st Contact Info) Description 03/01/2025 Results Follow-Up [facility] [address] [place] [address] Alvarez Zimmer MD [address] [place] [address] Social History Tobacco Use Types [...] do you attend [facility] or pentecostalism services? Patient unable to answer 01/10/2025 Do you belong to any clubs o r organizations such as caodaism groups, unions, fraEsphion or athletic groups, or school groups? Patient [...] Patient Health Questionnaire-2 Score 2 04/10/2025 [facility] Health [...] drink first t kennedy in the morning (EYE-CHAIN MAKER) to steady your nerves or to get [...] than half the days 04/10/2025 10:50 AM EDJuanis Meier Feeling down, depressed, or hopeless Not at all 04/10/2025 10:50 AM EDT Amanda Cuello Patient Health Questionnaire-2 Score 2 04/10/2025 10:50 AM EDT Florencio Cuello * Question Answer Date of Assessment Author Trouble falling or staying a sleep, or sleeping too much Not at all 03/06/2025 1:21 PM EDT Christy Buckley Feeling tired or having little energy Not at all 1:21 PM EDChristy Davidson Poor appetite or overeating Not at all 03/06/2025 1: 21 PM EDT Christy Buckley Feeling bad about yourself - or that you are a failure or have let yourself or your family down Not at all 03/06/2025 1:21 PM EDT Lauren Buckley Trouble concentrating on thi ngs, such as reading the newspaper or watching television Not at all 03/06/2025 1:21 PM EDT Christy Buckley Moving or speaking so slowly that other people could have noticed? Or the opposite - being so fidgety or restless that you have been moving around a lot more than usual. Not at all 03/06/2025 1:21 PM EDT Jaun Buckley Thoughts that you would be b jacinda off or hurting yourself in some way Not at all 03/06/2025 1:21 PM EDT Christy Buckley Patient Health Questionnaire-9 Score 0 02/19 1:21 PM EDT Christy Buckley * Calculated C-SSRS Risk Score (Lifetime/Recent) Answer Date of Assessment Author No Risk Indicated 04/17/2025 1:55 PM EDT Sweta Juarez * If you checked off any problems [...] to be (Past 1 Month) No 025 1:55 PM EDT Sweta Juarez 2. Non-Specific Active Suici liz Thoughts (Past 1 Month) No 04/17/2025 1:55 PM EDT Sweta Juarez 6. Suicidal Behavior (Lifetime) No 1:55 PM EDT Sweta Juarez documented as of this encounter Miscellaneous Notes * Result Encounter Note - Alvarez Zimmer MD - 03/01/2025 1:12 PM EDT Sent in zinc and ciprofloxacin. 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 Magnesium can affect ciprofloxacin absorption and recommend taking ciprofloxacin at a time daily when you aren't taking magnesium or drinking a nutritional boost supplement at least 4 hours before or after taking ciprofloxacin. So if you take ciprofloxacin in the morning please take the magnesium at night and don't drink a nutritional boost supplement until 4 hours after taking ciprofloxacin. documented in this encounter Plan of Treatment Upcoming Encounters Date Type Department Care Team (Late st Contact Info) Description 06/27/2025 9:30 AM EDT Appointment [facility]iology [address] [place] [address] 06/27/2025 10:30 AM EDT Appointment [facility] [address] [place] [address] 07/04/2025 10:30 AM EDT Appointment [facility] [address] [place] [address] 07/04/2025 11:30 AM EDT Appointment [facility] [address] [place] [address] 07/09/2025 2:40 PM EDT Office Visit [facility] Bone & Mineral Metabolism [address], [address] [place] [address] Ar Dominique MD [address] [place] [address] 07/11/2025 10:30 AM EDT Appointment [facility] [address] [place] [address] 07/11/2025 11:30 AM EDT Appointment [facility] [address] [place] [address] 07/18/2025 10:30 AM EDT Appointment [facility] [address] [place] [address] 07/18/2025 11:30 AM EDT Appointment [facility] [address] [place] [address] 07/25/2025 10:30 AM EDT Appointment [facility] [address] [place] [address] 07/25/2025 11:30 AM EDT Appointment [facility] [address] [place] [address] 07/31/2025 9:00 AM EDT Office Visit [facility] [address] [place] [address] [place] [address] 08/20/2025 9:30 AM EDT Clinical Support [facility] [place] [address] [place] [address] 08/20/2025 10:30 AM EDT Social Work [facility] [place] [address] [place] [address] [place] [address] 08/20/2025 11:00 AM EDT Office Visit [facility] [place] [address] [place] [address] Jude Duque MD [address] [place] [address] 10/30/2025 1:20 PM EST Office Visit [facility] Endocrinology [address] [place] [address] Sharif Moreno, DPNicole [address] [place] [address] documented as of this encounter Visit Diagnoses Not on filedocumented in this encounter Additional Health Concerns Assessment Noted Time PHQ-9 Depression Total Score: 11 01/25/2 025 8:08 AM EST A fall risk assessment has been complete d for the patient 02/27/2025 8:14 AM EDT A Body Mass Index follow-up plan has been documented for the patient 02/27/2025 1:59 PM EDT documented as of this encounter Care Teams Body Cleaner Relationship Specialty Start Date End Date Alvarez Zimmer MD [address] [place] [address] PCP - General Family Medicine 12/07/24 Lea Fernando [address] [place] [address] M1A1 Tank Crewman Endocrinology 08/29/24 Rachel Ray APRN [address] [facility] [address] [place] [address] Nurse Practitioner Gastroenterology 09/24/24 documented as of this encounter
--- OUTSIDE RECORDS SUMMARY | 2025-06-23 17:49 | XMS_ITS | Encounter Summary ---
Author Organization Healthcare Address [facility] [place] [address] Care Team Providers Care Plating Equipment Tender Name Role Phone Wilma Howard Ambar RUSH Primary Care Provider [phone] Lea Fernando Unavailable [phone] Rachel Ray CATTLE SORTER Unavailable [phone] Taina Lyles CATTLE SORTER Primary Care Provider [phone] Monique Tapia SALES MARKETING COORDINATOR Unavailable Unavailable Alvarez Zimmer MD Primary Care Provider [phone] Shaniqua Trevino SALES MARKETING COORDINATOR Unavailable Unavailable Tamera Isabel SALES MARKETING COORDINATOR Unavailable Unavailabl e Encounter Details Date Type Department Care Team (Late st Contact Info) Description 02/26/2024 Orders Only External Location [address] [place] [phone] Provider, External Social History Tobacco Use Types [...] Appointment [facility] Radiology [address] [place] [address] 06/27/2025 10:30 AM EDT Appointment [facility] Radiology [address] [place] [address] 07/04/2025 10:30 AM EDT Appointment [facility] [address] [place] [address] 07/04/2025 11:30 AM EDT Appointment [facility] Radiology [address] [place] [address] 07/09/2025 2:40 PM EDT Office Visit [facility] Bone & Mineral Metabolism [address], [address] [place] [address] Ar Dominique MD [address] [place] [address] 07/11/2025 10:30 AM EDT Appointment [facility] Radiology [address] [place] [address] 07/11/2025 11:30 AM EDT Appointment [facility] [address] [place] [address] 07/18/2025 10:30 AM EDT Appointment [facility] [address] [place] [address] 07/18/2025 11:30 AM EDT Appointment [facility] [address] [place] [address] 07/25/2025 10:30 AM EDT Appointment [facility]iology [address] [place] [address] 07/25/2025 11:30 AM EDT Appointment [facility]iology [address] [place] [address] 07/31/2025 9:00 AM EDT Office Visit [address] [phone] Alvarez Zimmer MD [address] [place] [address] 08/20/2025 9:30 AM EDT Clinical Support [facility] [place] [address] [place] [address] 08/20/2025 10:30 AM EDT Social Work [facility] [place] [address] [place] [address] [place] [address] 08/20/2025 11:00 AM EDT Office Visit [facility] [place] [address] [place] [address] Jude Duque MD [address] [place] [address] 10/30/2025 1:20 PM EST Office Visit [facility] Endocrinology [address] [place] [address] Sharif Moreno, DPNicole [address] [place] [address] documented as of this encounter Procedures Procedure Name Priority Date/Time Associated Diagnosis Comments US OUTSIDE IMAGES 02/26/2024 8:26 AM EDT documented in this encounter Results * US OUTSIDE IMAGES (02/26/2024 8:26 AM EDT) Anatomical Region Laterality Modality Ultrasound 02/26/2024 8:26 AM EDT us External Provider IMG US PROCEDURES Final Result documented in this encounter [...] documented as of this encounter Care Teams Plating Equipment Tender Relationship Specialty Start Date End Date Wilma Howard APRN [address] [place] [address] [place], [place] [id number] PCP - General 04/03/21 09/30/24 Taina Lyles, CATTLE SORTER [address] [place] [address] [place], [place] [id number] PCP - General 10/01/24 12/06/24 Alvarez Zimmer MD [address] [place] [address] PCP - General Family Medicine 12/07/24 Lea Fernando [address] [place] [address] Yard Coordinator Endocrinology 08/29/24 Rachel Ray APRN [address] [place] [address] Nurse Practitioner Gastroenterology 09/24/24 Monique Tapia LPN VALUE-[place] [address] TCM Nurse 11/28/24 12/28/24 Shaniqua Trevino LPN TCM Nurse 01/15/25 02/14/25 Tamera Isabel LPN VALUE-BASED TRANSFORMATION PROGRAM Licensed Practical Nurse 05/29/25 documented as of this encounter
--- OUTSIDE RECORDS SUMMARY | 2025-06-23 17:49 | XMS_ITS | Encounter Summary ---
Author Organization [facility] Address [address] [place] [address] Care Team Providers Care Orthotist/Prosthetist Name Role Phone AyahTor Lea Clarke Unavailable [phone] Rachel Rachael CLAIMS SPECIALIST Unavailable [phone] Alvarez Zimmer MD Primary Care Provider [phone] Reason for Visit * Reason Onset Date Comments Med Refill 03/30/2025 Encounter Details Date Type Department Care Team (Late st Contact Info) Description 03/30/2025 Telephone [facility] [address] [place] [address] Alvarez Zimmer MD [address] [place] [address] Med Refill Social History Tobacco Use Types Packs/Day Years [...] week 01/10/2025 How often do you attend [facility] or anabaptism services? Patient unable to answer 01/10/2025 Do you belong to any clubs o r organizations such as denominational groups, unions, fraternal or athletic groups, or [...] Recorded Patient Health Questionnaire-2 Score 2 04/10/2025 [facility] of Occupat ional [...] drink first t kennedy in the morning (EYE-BOOK OR SCRIPT EDITOR) to steady your nerves or to get [...] than half the days 04/10/2025 10:50 AM EDT Juanis Cuello Feeling down, depressed, or hopeless Not at all 04/10/2025 10:50 AM EDT Amanda Cuello Patient Health Questionnaire-2 Score 2 04/10/2025 10:50 AM EDT Florencio Cuello * Calculated C-SSRS Risk Score (Lifetime/Recent) Answer [...] Suicidal Behavior (Lifetime) No 1:55 PM EDT Juarez, Sweta Carmel documented as of this encounter Miscellaneous Notes * Telephone Encounter - Alvarez Zimmer MD - 04/01/2025 10:11 PM EDT Found prior script for Vitamin D 1,000 units. Script sent. * Telephone Encounter - Gissel Marino - 04/01/2025 3:58 PM EDT I refilled mag oxide, but there wasn't a vitamin d in her chart. What dose and how often does she need to take it? * Telephone Encounter - Alvarez Zimmer MD - 04/01/2025 1:21 PM EDT Can fill documented in this encounter Plan of Treatment Upcoming Encounters Date Type Department Care Team (Late st Contact Info) Description 06/27/2025 9:30 AM EDT Appointment [facility] Interventional Radiology [address] [place] [address] 06/27/2025 10:30 AM EDT Appointment [facility] Interventional Radiology [address] [place] [address] 07/04/2025 10:30 AM EDT Appointment [facility] Inter[facility] Radiology [address] [place] [address] 07/04/2025 11:30 AM EDT Appointment [facility] Interventional Radiology [address] [place] [address] 07/09/2025 2:40 PM EDT Office Visit [facility] Bone & Mineral Metabolism [address] [facility], [address] [place] [address] Ar Dominique MD [address] [place] [address] 07/11/2025 10:30 AM EDT Appointment [facility] Interventional Radiology [address] [place] [address] 07/11/2025 11:30 AM EDT Appointment [facility] Inter[facility] Radiology [address] [place] [address] 07/18/2025 10:30 AM EDT Appointment [facility] Inter[facility] Radiology [address] [place] [address] 07/18/2025 11:30 AM EDT Appointment [facility] Radiology [address] [place] [address] 07/25/2025 10:30 AM EDT Appointment [facility] Inter[facility] Radiology [address] [place] [address] 07/25/2025 11:30 AM EDT Appointment [facility] Inter[facility] Radiology [address] [place] [address] 07/31/2025 9:00 AM EDT Office Visit [address] [address] Alvarez Zimmer MD [address] [place] [address] 08/20/2025 9:30 AM EDT Clinical Support [facility] [address] [place] [address] 08/20/2025 10:30 AM EDT Social Work [facility] [address] [place] [address] Deysi Ortega [place], [place] [phone] 08/20/2025 11:00 AM EDT Office Visit [facility] [place] [address] [place] [address] Jude Duque MD [address] [place] [address] 10/30/2025 1:20 PM EST Office Visit [facility] Endocrinology [address] [place] [phone] Sharif Moreno S, DPM [address] [place] [address] documented as of this encounter Visit Diagnoses Not on filedocumented in this encounter Additional Health Concerns Assessment Noted Time PHQ-9 Depression Total Score: 0 03/06/20 1:21 PM EDT A fall risk assessment has been complete d for the patient 03/05/2025 10:45 AM EDT A Body Mass Index follow-up plan has been documented for the patient 03/28/2025 11:00 AM EDT documented as of this encounter Care Teams Orthotist/Prosthetist Relationship Specialty Start Date End Date Alvarez Zimmer MD [address] [place] [phone] PCP - General Family Medicine 12/07/24 Lea Fernando [address] [place] [phone] Improvement Intern Endocrinology 08/29/24 Rachel Ray APRN [address] [place] [address] Nurse Practitioner Gastroenterology 09/24/24 documented as of this encounter
[2025-06-23 18:06] LABS: Hematocrit 29.3 % (37.0-47.0); Hemoglobin 9.8 g/dL (12.2-16.2); Immature Granulocytes % 0.4 %; Mean Corpuscular HGB Conc 33.4 g/dL (31.8-35.4); Mean Corpuscular Hemoglobin 31.2 pg (27.0-31.2); Mean Corpuscular Volume 93.3 fl (81-99); Nucleated Red Blood Cells % 0 %; Red Blood Count 3.14 M/mm3 (4.20-5.40); Red Cell Distribution Width-SD 57.0 fL; White Blood Count 2.4 K/mm3 (4.8-10.8)
[2025-06-23] MEDS: ONDANSETRON 4MG/2ML VIAL 4 MG IV (18:11)
[2025-06-23] MEDS: MORPHINE 4MG/ML SYRINGE 4 MG IV (18:11)
--- NOTE | 2025-06-23 18:12 | PC.NURSE ---
Addendum entered by Ankit Julien EMT-P 06/23/25 18:14: Changed to 39.0 Original Note: Platelet 37.0 per the lab. Providers advised.
[2025-06-23 18:15] LABS: Albumin Level 3.0 g/dl (3.5-5.0); Chloride 105 mmol/L (98-107); Potassium 4.4 mmoL/L (3.5-5.1); Sodium 133 mmol/L (136-145)
[2025-06-23 18:17] LABS: Blood Urea Nitrogen 35 mg/dl (7-17); Creatinine Clearance Estimated 32 mL/min (50-200); Creatinine,Serum 2.30 mg/dl (0.52-1.04); Estimated Glomerular Filt Rate 21 ml/min (>60); GFR (African American) 26 ML/MIN (>60)
[2025-06-23 18:18] LABS: Alanine Aminotransferase 35 U/L (12-78); Albumin/Globulin Ratio 0.7 (1.1-1.8); Alkaline Phosphatase 246 U/L (38-126); Anion Gap 11.4 mEq/L (5-15); Aspartate Amino Transferase 95 U/L (14-36); Bilirubin,Total 2.7 mg/dl (0.2-1.3); Calcium 9.3 mg/dl (8.4-10.2); Carbon Dioxide 21 mmol/L (22.0-30.0); Globulin 4.4 g/dL (1.3-3.2); Glucose 124 mg/dl (74-100); Lipase 371 U/L (23-300); Total Protein,Serum 7.4 g/dl (6.3-8.2)
[2025-06-23 18:19] LABS: Ammonia 50 umol/L (9-30)
[2025-06-23 18:31] LABS: Platelet Count 39 K/mm3 (142-424)
[2025-06-23 18:41] LABS: Troponin I < 0.01 ng/ml (0.00-0.034)
--- NOTE | 2025-06-23 19:26 | PC.NURSE ---
ED provider at the bedside performing tap at the bedside
--- NOTE | 2025-06-23 19:41 | PC.NURSE ---
Manual pressure held to left side of abd post para draw per Dr Rodriguez. No bleeding at this time, dressing placed on patient and educated that this RN would be back to check on patient. Fluid labeled and walked to the lab at this time. Pt AOx4, NAD noted, RR even and non labored, skin slightly pale, warm and dry.
--- NOTE | 2025-06-23 19:52 | PC.NURSE ---
Provider inquired about pending UA order, reports that urine could be tested if patient could provide one, however the need for straight cath at this time is not needed.
[2025-06-23 20:18] LABS: RBC,Body Fluid 20 cells/uL (< 10 X 10^3); TNC,Body Fluid 206 cells/uL (< 1000)
[2025-06-23 20:21] LABS: Appearance,Body Fld. Bloody; Source, Body Fld. Peritoneal Fluid; Volume,Body Fld. 30 mL
--- NOTE | 2025-06-23 20:35 | PC.NURSE ---
Lights dimmed for patient comfort. Side rails up x2, family at the bedside.
--- NOTE | 2025-06-23 21:08 | PC.NURSE ---
Dr Rodriguez at the bedside updating pt and family on POC
--- NOTE | 2025-06-23 21:29 | PC.NURSE ---
Spoke with [facility] to let them know that we have an care update and is wanting to speak with Dr. Dent. [facility] will call us back as soon as they can
[2025-06-23 22:10] LABS: Mononuclear WBCs,Body Fluid 98 %; Polynuclear WBC,Body Fluid 2 %
== END 2025-06-23 22:34 | disposition home or self-care (01) ==
PROVIDERS: Nurse Practitioner; Emergency Provider Student in an Organized Health Care Education/Training Program; PCP Family Medicine
DX: R10.9 Unspecified abdominal pain (principal); N17.9 Acute kidney failure, unspecified; K74.60 Unspecified cirrhosis of liver
CPT/HCPCS: 71045; 74176; 80053; 82140; 83605; 83690; 84484; 85025; 87070; 87205; 89051; 93005; 96374; 96375; 99291; J2004; J2270; J2405

== ENCOUNTER 2025-06-24 09:41 | Outpatient (CLI) | payer MEDICARE, MEDICAID, SELFPAY ==
--- OUTSIDE RECORDS SUMMARY | 2014-04-02 05:08 | XMS_ITS | Continuity of Care Document ---
Author Organization [facility] Address [address] [place] [address] Phone Care Team Providers Care Termite Control Technician Name Role Phone Kristian Ayala MD Unavailable [...] Active Procedures Procedure Date REFRACTION OFFICE/OUTPATIENT VISIT, [facility] Advance Directives Directive Yes / No Effective Date File Name No Information Encounters Encounter Description Practice Location Reason(s) For Visit Diagnoses Date Provider OFFICE/OUTPATI ENT VISIT, [facility] , [address] [place] [address], [address], [place] tel:[phone] [place] Office diabetes (chief complaint)d ecreased vision (chief complaint) Diabetes Mellitus, Adult Onset, UncontrolledSenile nuclear sclerosis Jamie Townsend. [address] [facility], [place], [address]. tel:[phone] Family History Family Member Type Diagnosis Age At Onset Father Problem (finding) degenerative disorder o f macula Father Problem (finding) cataract Payers Payer name Insurance type Covered green party ID Annalee de leon(s) [facility] Community Plan CI [id number] Social History Type Description Quantity Date Captured [...]
--- OUTSIDE RECORDS SUMMARY | 2023-07-07 19:50 | XMS_ITS | Encounter Summary ---
Author Organization [facility] Address [address] [place] [address] Care Team Providers Care Manager Outreach Name Role Phone Taina Lyles APRN Primary Care Provider [phone] Reason for Referral * Hospital - Outpatient (Routine) - Closed Specialty Diagnoses / Procedures Referred By Eder zhu Referred To Contact Diagnoses JONATHAN (obstructive sleep apnea) Obesity (BMI 30-39.9) Nocturnal hypoxia Procedures Polysomnography 4 or More Parameters With CPAP Whitney Agarwal MD [address] [place] [address] Phone: tel: fax: Referral ID Status Reason Start Date Expiration Date Visits Re quested Visits Authorized [id number] Closed 04/14/2023 04/13/2024 1 1 Reason for Visit * Hospital - Outpatient (Routine) - Closed Specialty Diagnoses / Procedures Referred By Eder hzu Referred To Contact Diagnoses JONATHAN (obstructive sleep apnea) Obesity (BMI 30-39.9) Nocturnal hypoxia Procedures Polysomnography 4 or More Parameters With CPAP Whitney Agarwal MD [address] [place] [address] [address] Phone: tel: fax: Referral ID Status Reason Start Date Expiration Date Visits Re quested Visits Authorized [id number] Closed 04/14/2023 04/13/2024 1 1 Encounter Details Date Type Department Care Team (Latest Contact Info) Description 07/07/2023 7:50 PM EDT Hospital Encounter [facility] CARDIOTH[facility]ACIC ICU RN DIAG CTR [address] [place] [address] Whitney Agarwal MD [address] [facility] [place] [address] JONATHAN (obstructive sleep apnea); Obesity [...] place to sleep or slept in a fci (including now)? No 12/01/2022 Abuse Screen Answer [...] SLEEP MEDICINE - 07/09/2023 12:44 PM EDT [facility] Pulmonary, Critical Care, and Sleep Medicine Whitney Agarwal M.D. [address] [facility] [address] Medical Office Building [address], [place]. [address]. CPAP/BiPAP TITRATION INTERPRETATION Date of Study: 07/07/2023 [...] feel free to contact the office of [facility] Pulmonary, Critical Care and Sleep Medicine at [phone], if you have any questions about this [...] documented as of this encounter Care Teams Manager Outreach Relationship Specialty Start Date End Date Taina Lyles APRN PCP - General Nurse Practitioner 12/30/22 documented as of this encounter
--- OUTSIDE RECORDS SUMMARY | 2025-04-25 09:30 | XMS_ITS | Encounter Summary ---
Author Organization [facility] Address [address] [place] [address] Care Team Providers Care Electrophysiologist Name Role Phone Lea Fernando Unavailable [phone] Rachel Ray CLINICAL RESEARCH NURSE Unavailable [phone] Alvarez Zimmer MD Primary Care Provider [phone] Reason for Referral * Imaging (Routine) - Closed Specialty Diagnoses / Procedures Referred By Eder zhu Referred To Contact Radiology Diagnoses Other ascites Procedures US Guided Abdominal Paracentesis Marianna Gordon APRN [address] [place] [address] Phone: tel: fax: Referral ID Status Reason Start Date Expiration Date Visits Re quested Visits Authorized [id number] Closed 04/18/2025 10/18/2026 1 1 * Clinic-Administered Medication (Routine) - Closed Specialty Diagnoses / Procedures Referred By Eder zhu Referred To Contact Diagnoses Other ascites Procedures OH ABDOM PARACENTESIS DX/THER W IMAGING GUIDANCE Blayne Phoenix PA [address] [place] [address] Phone: tel: fax: [facility] [address] [place] [address] Phone: tel: fax: Referral ID Status Reason Start Date Expiration Date Visits Re quested Visits Authorized [id number] Closed 04/25/2025 10/25/2026 1 1 Reason for Visit * Imaging (Routine) - Closed Specialty Diagnoses / Procedures Referred By Eder zhu Referred To Contact Radiology Diagnoses Other ascites Procedures US Guided Abdominal Paracentesis GabrieladeloresMarianna osorio, CLINICAL RESEARCH NURSE [address] [place] [address] Phone: tel: fax: Referral ID Status Reason Start Date Expiration Date Visits Re quested Visits Authorized [id number] Closed 04/18/2025 10/18/2026 1 1 Encounter Details Date Type Department Care Team (Latest Contact Info) Description 04/25/2025 9:30 AM EDT - 04/25/2025 11:59 PM EDT Hospital Encounter [facility] A Interventional Radiology [address] [place] [address] Golden Wilhelm, RN MICU 9-T1 AND T2 Other ascites Discharge Disposition: Home or Self Care Social History Tobacco Use Types Packs/Day Years Used Date Smoking Tobacco: Never Passive Smoke Exposure: Never Smokeless Tobacco: Never Alcohol Use Standard [...] week 01/10/2025 How often do you attend chur or islam services? Patient unable to answer 01/10/2025 Do you belong to any clubs o r organizations such as voodoo groups, unions, fraternal or athletic groups, or [...] Recorded Patient Health Questionnaire-2 Score 2 04/10/2025 [facility] - Occupational Stress [...] money to buy more. Never true 03/06/20 25 Within the past 12 months, t he [...] place to sleep or slept in a half-way (including now)? Yes 08/29/2024 PHQ-9 Answer Date [...] any time in the past 12 m [facility], were you homeless or living in a half-way (including now)? No 03/06/2025 CAGE ASSESSMENT Answer [...] drink first t kennedy in the morning ([employer]) to steady your nerves or to get rid of a hangover? 0 10/22/2024 CAGE Questionnaire Score 0 024 Utilities Answer Date Recorded In the past 12 months has th e electric, gas, oil, or water company threatened to [...] Sign Reading Time Taken Comments Blood Pressure 96/60 04/25/2025 12:16 PM EDT Pulse 59 04/25/2025 12:16 PM EDT Temperature 36.8 C (98.2 F) 04/25/2025 9:56 AM EDT Respiratory Rate 20 04/25/2025 12:16 PM EDT Oxygen Saturation 99% 04/25/2025 12:16 PM EDT Inhaled Oxygen Concentration - - Weight - - Height - - Body Mass Index - - documented in this encounter Discharge Instructions * Discharge Instructions* Golden Wilhelm RN - 04/25/2025 12:20 PM EDT *Interventional Radiology* (IR) Questions/Concerns & Appointments: If there are questions or concerns after discharge please call: Vascular and Interventional Radiology Clinic at [phone] Tuesday - Tuesday 8:00 AM to 4:30 PM After hours, weekends, and holidays please call [phone] and ask for the Interventional Radiology provider/Resident on-call Intervention Radiology Appointments: If you need to reschedule a procedure, please call our Schedulers at [phone], option 4. If you need to schedule or reschedule a clinic appointment, please call [phone]. [facility] Vascular and Interventional Radiology Clinic [facility] [address] [facility], [facility] [place] [address] documented in this encounter Medications at Time of Discharge Abaloparatide (Tymlos) 3120 MCG/1.56ML solution pen-injector Inject 80 mcg under the skin daily. 1.56 mL 2 04/22/2025 azelastine (Astelin) 0.1 % nasal sprayIndications:ET D (Eustachian tube dysfunction), bilateral Administer 1 spray into each nostril 2 times a day. Use in each nostril as directed 30 mL 12 04/17/2025 B-D UF III MINI PEN NEEDLES 31G X 5 MM misc 04/22/2025 B-D ULTRAFINE III SHORT PEN 31G X 8 MM misc 01/14/2025 Blood Glucose Monitoring Suppl (Blood Glucose Monitor System) w/Device kit Test blood sugars twice a day. Dx E11.65 1 kit 01/18/2025 calcium carbonate EX (Tums E-X) 750 MG chewable tablet Chew 1 tablet (750 mg) 1 (one) time each day. 12/05/2024 capsaicin (Zostrix) 0.025 % cream Apply thin layer to feet nightly WITH GLOVES 56.6 g 1 04/24/2025 cetirizine (ZyrTEC) 10 MG tabletIndications:E TD (Eustachian tube dysfunction), bilateral Take 1 tablet by mouth daily. 30 tablet 2 04/17/2025 07/16/20 25 cholecalciferol (Vitamin D-3) 25 MCG (1000 UT) tablet Take 1 tablet by mouth daily. 90 tablet 2 04/01/2025 ciprofloxacin (Cipro) 500 MG tabletIndications:A ltered mental status, unspecified altered mental status type Take 1 tablet by mouth daily. 90 tablet 1 03/01/2025 ergocalciferol (Vitamin D-2) 1.25 MG (23954 UT) capsuleIndications: Vitamin D deficiency Take 1 capsule by mouth 1 time per week. 8 capsule 3 04/10/2025 11/20/20 25 fluticasone (Flonase) 50 MCG/ACT nasal sprayIndications:ET D (Eustachian tube dysfunction), bilateral Administer 1 spray into each nostril daily. Shake gently. Before first use, prime pump. After use, clean tip and replace cap. 16 g 04/17/2025 glucose blood test strip Use to test blood sugars twice a day E11.65 100 each 1 02/12/2025 insulin aspart (NovoLOG Flexpen) 100 UNIT/ML injection Inject 24 units before meals, 12 units before small meals/snacks plus 4 units for every 50 > 150. MDD: 100 units 04/09/2025 Insulin Pen Needle 31G X 6 MM misc 1 each daily. Use to administer Tymlos daily 100 each 11 04/22/2025 Lancets misc Use to test blood sugars twice a day E11.65 100 each 1 02/12/2025 Lantus SoloStar 100 UNIT/ML injection pen Inject 52 units every morning. Titrate as directed. MDD: 60 units 04/23/2025 Magnesium Oxide, Laxative, 500 MG tabletIndications:H ypomagnesemia Take 1 tablet by mouth daily. 90 tablet 3 04/01/2025 Multiple Vitamins-Minerals (COMPLETE WOMENS PO) Take 1 tablet by mouth in the morning. ondansetron ODT (Zofran-ODT) 8 MG disintegrating tablet Dissolve 1 tablet on the tongue every 8 hours as needed for nausea or vomiting. 30 tablet 1 04/01/2025 pen needle, diabetic (BD Pen Needle Micro U/F) 32G X 6 MM misc Use to inject insulin 4 times per day. 400 each 3 11/16/2024 [place] 0.6 MG/0.6ML solution auto-injectorIndica tions:Type 2 diabetes mellitus with hyperglycemia, with long-term current use of insulin ([facility]) Inject 0.6 mg under the skin 1 time as needed (for extreme hypoglycemia) for up to 1 dose. 0.6 mL 2 04/17/2025 zinc sulfate (Zincate) 220 (50 Zn) MG capsule Take 1 capsule by mouth in the morning and 1 capsule before bedtime. 60 capsule 2 03/01/2025 diclofenac (Voltaren) 1 % topical gel Place 1-2 g on the skin in the morning and 1-2 g before bedtime. Do all this for 14 days. Apply as directed to area in chest. 100 g 03/05/2025 06/05/20 25 calcitriol (Rocaltrol) 0.25 MCG capsuleIndications: Chronic kidney disease, stage 3b (CMS/HCC) Take 1 capsule by mouth daily. 30 capsule 2 04/22/2025 06/09/20 25 furosemide (Lasix) 20 MG tabletIndications:E nd-stage liver disease (CMS/HCC),Pre-trans plant evaluation for liver transplant Take 1 tablet (20 mg) by mouth 1 (one) time each day. 30 tablet 2 12/11/2024 05/07/20 25 lactulose (Chronulac) 10 GM/15ML solution Take 30 mL by mouth in the morning and 30 mL in the evening and 30 mL before bedtime. 2700 mL 3 02/14/2025 05/07/20 25 midodrine (Proamatine) 5 MG tablet Take 3 tablets by mouth 3 times a day. 270 tablet 2 03/19/2025 05/07/20 25 nutrional drink glucose control (Boost Glucose Control) liquid liquidIndications:N ausea Take 250 mL by mouth 3 (three) times a day. Drink 1 supplement up to 3 times a day or As Directed as a nutritional supplement. Flavor preference: per patient. Please dispense up to 4 cases at a time per patient request [id number] mL 11 10/02/2024 05/07/20 25 omeprazole (PriLOSEC) [address] capsule Take 1 capsule by mouth 2 times a day. Do not crush or chew. 60 capsule 1 04/22/2025 06/01/20 25 rifAXIMin (Xifaxan) 550 MG tablet Take 1 tablet by mouth 2 times a day. 05/07/20 25 rosuvastatin (Crestor) 20 MG tablet Take 1 tablet by mouth nightly. 08/29/2020 06/11/20 25 spironolactone (Aldactone) 50 MG tabletIndications:E nd-stage liver disease (CMS/HCC),Pre-trans plant evaluation for liver transplant Take 1 tablet by mouth daily. 30 each 2 04/22/2025 05/07/20 25 documented as of this encounter Miscellaneous Notes * Golden Hurst RN - 04/25/2025 12:20 PM EDT Images from the original note were not included. [id number] Discharge Instructions for Paracentesis Paracentesis is a procedure to remove extra fluid from your belly (abdomen). This fluid buildup in the abdomen is called ascites. The procedure may have been done to take a sample of the fluid for diagnosis. Or it may have been done to drain the extra fluid from your abdomen and help make you more comfortable. Ascites is buildup of excess fluid in the abdomen. Home care ? If you have pain after the procedure, your health care provider can prescribe or recommend pain medicines. Take these exactly as directed. If you stopped taking other medicines before the procedure, ask your provider when you can start them again. ? Take it easy for 24 hours after the procedure. Don't do any physical activity until your providersays it?s OK. ? You will have a small bandage over the puncture site. Stitches, surgical armand, adhesive tapes,adhesive strips, or surgical glue may be used to close the cut (incision). They also help stop bleeding and speed healing. You may take the bandage off in 24 hours. ? Check the puncture site for the signs of infection listed below. Follow-up care Make a follow-up appointment with your provider as directed. During your follow- up visit, your provider will check your healing. Let your provider know how you are feeling. You can also discuss the cause of your ascites and if you need any further treatment. If your fluid is infected, you will be given antibiotics. If so, take them as directed. Do not stop taking them just because you feel better. You need to take the full course of antibiotics. In some cases, the paracentesis may need to be repeated if the fluid returns. Your provider may also prescribe medicines that increase urination (diuretics) to decrease the buildup of fluid. When to contact your doctor Contact your provider if: ? You have a fever of 100.4?? F ( 38??C) or higher, or as directed by your provider. ? You have chills. ? You have trouble breathing. ? Your pain doesn't go away even after taking pain medicine. ? You have belly pain not caused by having the skin punctured. ? You are bleeding from the puncture site. ? More than a small amount of fluid is leaking from the puncture site. ? Your belly is swollen. ? You have signs of infection at the puncture site. These include increased pain, redness, or swelling, warmth, or bad-smelling drainage. ? There's blood in your urine. ? You are feeling dizzy or lightheaded, or fainting. Last Reviewed Date: 2025 00:00:00 ?? [id number] [employer]. All rights reserved. This information is not intended as a substitute for professional medical care. Always follow your healthcare professional's instructions. * Post-Procedure Note - Maria Dolores Ontiveros APRN, DNP - 04/25/2025 11:15 AM EDT Vascular and Interventional Radiology Brief Postprocedure Note Provider: Maria Dolores Ontiveros APRN Pre-operative Diagnosis: Ascites Right pleural effusion Post-operative Diagnosis: Same Type of Anesthesia: Local Description of Findings: See PACS Technical/Surgical Procedures Used: US guided abdominal paracentesis Right thoracentesis not performed due to lung presence in fluid with lack of safe window Specimen Obtained: Yes Complications: None Estimated Blood Loss: none Procedure Events Event Event Time See detailed result report with images in PACS. The patient tolerated the procedure well without incident or complication and is in stable condition. * Interval H&P Note - Maria Dolores Ontiveros APRN, DNP - 04/25/2025 11:15 AM EDT Patient presents for paracentesis and thoracentesis. H&P personally reviewed, no interval change. Source Note - Maria Dolores Ontiveros APRN, DNP - 03/28/2025 8:45 AM EDT 03/28/25 Patient: Gabi Zimmer Date of : 1960[address]64 y.o. Chief Complaint: Presents for paracentesis and right thoracentesis History of Present Illness: Gabi Zimmer is a 64 y.o. 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 She also has new right pleural effusion. She is presenting today for paracentesis and right thoracentesis. History and admission information obtained from chart review of primary and consulting teams notation, as well as speaking directly to consulting team. The following portions of the chart were reviewed this encounter and updated as appropriate: Review of Systems: 14 point ROS negative except for above. Past Medical History: Diagnosis Date ADHD (attention deficit hyperactivity disorder) Allergic Anxiety disorder, unspecified Anxiety Bleeding gums Cataract Chronic kidney disease Cirrhosis (CMS/HCC) Colon cancer screening 09/20/2019 Added automatically from request for surgery [id number] Coronary artery disease Depression 1995 Diabetes mellitus [...] uncomplicated Asthma Unspecified osteoarthritis, unspecified site Arthritis Surgical History[1] Social History[2] Family History: Personally reviewed and noncontributory. Allergies[3] Objective: All laboratory, images, tracings, and vital sign data are personally reviewed unless otherwise noted. VITALS: Temp: [36.4 ??C (97.6 ??F)] 36.4 ??C (97.6 ??F) Heart Rate: [72] 72 Resp: [14] 14 BP: (115)/(69) 115/69 Weight: 82.2 kg (181 lb 3.5 oz) Body mass index is 30.16 kg/m??. I & O SUMMARY No intake/output data recorded. No intake/output data recorded. MEDICATIONS: Current Medications[4] LABS (PAST 18Labs in last 18 hours) CBC WBC ?? Hb ?? Plt ?? Hct ?? INR ?? PTT ?? Anti-Xa ?? BMP Na ?? Cl ?? BUN ?? Glu ?? K ?? Co2 ?? Cr ?? Ca ?? Mg ?? Phos ?? Lactate ?? LFT AST ?? AlkPhos ?? T Prot ?? ALK ?? Bili ?? Alb ?? D.Bili ?? HOURS) EXAM: GENERAL: No acute distress EYES: No scleral icterus or conjunctivitis HENT: Atraumatic, normocephalic NECK: Supple RESP/CHEST: Symmetric expansion, non labored CARD: Regular rate and rhythm Extremities: No edema, cyanosis or clubbing; pedal pulses palpable +2 GI: No organomegaly or masses; soft, non-tender, distended SKIN: No rash, sores, lesions or subcutaneous nodules NEURO: Alert Radiographics/Diagnostics: Imaging personally reviewed and reviewed with attending. === 01/08/25 === CT ANGIO NECK - Narrative - CLINICAL INDICATION: Neuro deficit, acute, stroke suspected TECHNIQUE: Head CTA: Axial images were obtained through the head during contrast bolus injection and multiplanar MIP images were created. Neck CTA: Axial images were obtained through the neck during bolus contrast injection and multiplanar reformatted and MIP images were created. 60 mL of Omnipaque 350 were administered intravenously. Total DLP (Dose-Length Product): 1722.82 mGy.cm (accession [id number]), 1722.82 mGy.cm (accession [id number]). Please note: The reported value represents the total of one or more individual components during the CT acquisition on this date and at this time, and as such, the same value may appear in more than one CT report depending on the interpreting/reporting physicians. COMPARISON: CT head October 13, 2024 FINDINGS: Neck CTA: Diagnostic Quality: Degraded due to artifacts from dense venous contrast, extraneous hardware and dental amalgam. Aorta and Great Vessel Origins: Partial obscuration of the distal brachiocephalic and origins of the right common carotid and subclavian arteries. The aortic arch has a normal branching pattern. There is no definite significant stenosis of the origins of the great arteries of the neck within the limitations. Right Cervical Carotid System: The right common carotid artery origin is partially apex, but appears grossly patent within the limitations. Tortuosity of the proximal common carotid artery with apparent mild narrowing at the apex of the tortuosity. There is no significant atherosclerotic plaque at the carotid bifurcation. There is a 0% stenosis at the bifurcation by NASCET criteria. The right internal carotid artery demonstrates a tortuous course in the cervical region. There is no definite evidence of dissection or pseudoaneurysm of the right common and internal carotid arteries within the limitations. Left Cervical Carotid System: The left common carotid artery and its origin are patent. Tortuosity of the mid common carotid artery with apparent moderate narrowing at the apex of tortuosity of the There is minimal atherosclerotic plaque at the carotid bifurcation. There is a 0% stenosis at the bifurcation by NASCET criteria. There is no definite evidence of dissection or pseudoaneurysm of the left common and internal carotid arteries. Vertebral arteries: The origins appear patent. Left vertebral artery appears dominant. There is no definite evidence of a dissection, pseudoaneurysm, or significant stenosis of the vertebral arterieswithin the limitations. Other Findings: Nonspecific mosaic attenuation in the visualized portions of the lungs, more noticeable on the right side. Degenerative changes in the cervical spine. Endotracheal and oroenteric tubes noted. Tiny calcific focus in the right thyroid lobe. Head CTA: Diagnostic Quality: Mild motion degradation Vertebrobasilar System: No significant stenosis in the intradural vertebral arteries and in the basilar artery. There is no aneurysm. Carotid Arteries: Right ICA: There is atherosclerotic plaque with no significant stenosis. Left ICA: There is atherosclerotic plaque with no significant stenosis. Other Findings: There is no aneurysm of either internal carotid artery. [place] and Major Peripheral Branches: There is no definite large vessel high-grade stenosis or occlusion. origin of right posterior cerebral artery. Apparent mild irregularity withoutsignificant stenosis in the left P2 segment on series 5, image 19 is not definitively appreciable in the delayed images and hence may be artifactual (series 19, image 9). There is no aneurysm. Other Findings: Please see separate report for CT head done at the same time for further information. - Impression - Neck CTA: No significant stenosis is present within the cervical carotid and vertebral systems. Head CTA: No definite large vessel high-grade stenosis or occlusion. No evidence of aneurysm. CRITICAL RESULT: No. COMMUNICATION: Per this written report. Drafted by Gomez Dean MD on 01/08/2025 12:12 PM Final report signed by Gomez Dean MD on 01/08/2025 12:31 PM === 03/05/25 === XR CHEST 2 VIEWS - Narrative - CLINICAL INDICATION: SOB TECHNIQUE: XR CHEST 2 VIEWS COMPARISON: January 08, 2025 FINDINGS: Stable cardiomediastinal silhouette. Persistent elevation the right hemidiaphragm. No new consolidation. No pneumothorax. Small right pleural effusion and associated atelectasis.. - Impression - Elevation of right hemidiaphragm with small right pleural effusion and basal atelectasis. CRITICAL RESULT: No. COMMUNICATION: Per this written report. By electronically signing this report, I, the attending physician, attest that I have personally reviewed the images/data for the above examination(s) and agree with the final edited report. Drafted by Wily Siddiqui MD on 03/05/2025 11:38 AM Final report signed by Darryn Santana MD on 03/05/2025 11:57 AM Echo, Adult Transthoracic Complete Result Date: 10/17/2024 Left Ventricle: The left ventricle is normal size. There is normal left ventricular myocardial thickness and mass. The left ventricular systolic function is normal. The LVEF as measured by Heart Model 3D volume is 59%. The diastolic function is normal. The left ventricular filling pressure is normal. Right Ventricle: The right ventricle is normal in size. The right ventricular systolic function is normal. Aortic Valve: The aortic valve appears to be trileaflet. The cusp(s) are thickened. There is calcification of the aortic valve leaflets. There is aortic annular calcfication present. There is mild aortic valve regurgitation. There is mild aortic stenosis. The peak gradient is 18 mmHg. The mean gradient is 10 mmHg. The estimated aortic valve area by the continuity equation is 2.4 cm2. Some of the mild elevation in gradients is due to high flow state. Pericardium: No pericardial effusion. Left Atrium: Intravenous injection of agitated saline demonstrates no evidence of intracardiac or intrapulmonary shunt. There is no recent study available for direct xsqb-sq-jwic comparison. Assessment & Plan: Decompensated cirrhosis Ascites Right pleural effusion - MELD 3.0: 22 at 03/05/2025 9:21 AM MELD-Na: 20 at 03/05/2025 9:21 AM Calculated from: Serum Creatinine: 1.12 mg/dL at 03/05/2025 9:21 AM Serum Sodium: 133 mmol/L at 03/05/2025 9:21 AM Total Bilirubin: 2.9 mg/dL at 03/05/2025 9:21 AM Serum Albumin: 2.6 g/dL at 03/05/2025 9:21 AM INR(ratio): 1.7 at 03/05/2025 9:21 AM Age at listin years Sex: Female at 03/05/2025 9:21 AM - Personally reviewed US paracentesis on 03/21/25 with moderate ascites (3.7 liters removed) and new right pleural effusion - INR ??, Plt ?? - VSS, Afebrile PLAN: - Will perform image guided paracentesis and right thoracentesis today Thank you for allowing us to participate in the care of this patient. Maria Dolores Ontiveros, CLINICAL RESEARCH NURSE, DNP Interventional Radiology [phone] [1] Past Surgical History: Procedure Laterality Date APPENDECTOMY 1979 BLADDER SURGERY N/A Bladder surgery from [facility] BREAST BIOPSY 2011 BREAST SURGERY 2009 BUNIONECTOMY Right CATARACT EXTRACTION Bilateral 2016 CHOLECYSTECTOMY 1979 ESOPHAGOGASTRODUODENOSCOPY HYSTERECTOMY N/A Hysterectomy from [facility] KNEE SURGERY Bilateral ORAL SURGERY N/A Oral surgery from [facility] OTHER SURGICAL HISTORY 2014 ROOT CANAL WISDOM TOOTH EXTRACTION [2] Social History Tobacco Use Smoking status: Never Passive exposure: Never Smokeless tobacco: Never Vaping Use Vaping status: Never Used Substance Use Topics Alcohol use: Not Currently Drug use: Never [3] No Known Allergies [4] Current Outpatient Medications: midodrine (Proamatine) 5 MG tablet, Take 3 tablets by mouth 3 times a day., Disp: 270 tablet, Rfl: 2 B-D ULTRAFINE III SHORT PEN 31G X 8 MM misc, , Disp: , Rfl: Blood Glucose Monitoring Suppl (Blood Glucose Monitor System) w/Device kit, Test blood sugars twicea day. Dx E11.65, Disp: 1 kit, Rfl: 0 calcitriol (Rocaltrol) 0.25 MCG capsule, Take 1 capsule by mouth daily., Disp: 30 capsule, Rfl: 5 calcium carbonate EX (Tums E-X) 750 MG chewable tablet, Chew 1 tablet (750 mg) 1 (one) time each day., Disp: , Rfl: ciprofloxacin (Cipro) 500 MG tablet, Take 1 tablet by mouth daily., Disp: 90 tablet, Rfl: 1 ezetimibe (Zetia) 10 MG tablet, Take 1 tablet by mouth nightly., Disp: , Rfl: furosemide (Lasix) 20 MG tablet, Take 1 tablet (20 mg) by mouth 1 (one) time each day., Disp: 30 tablet, Rfl: 2 glucose blood test strip, Use to test blood sugars twice a day E11.65, Disp: 100 each, Rfl: 1 insulin aspart (NovoLOG Flexpen) 100 UNIT/ML injection, Inject 20 units before meals plus 4 units for every 50 > 150. MDD: 80 units, Disp: 75 mL, Rfl: 2 lactulose (Chronulac) 10 GM/15ML solution, Take 30 mL by mouth in the morning and 30 mL in the evening and 30 mL before bedtime., Disp: 2700 mL, Rfl: 3 Lancets misc, Use to test blood sugars twice a day E11.65, Disp: 100 each, Rfl: 1 Lantus SoloStar 100 UNIT/ML injection pen, Inject 48 units every morning. Titrate as directed. MDD:60 units, Disp: 60 mL, Rfl: 2 Magnesium Oxide, Laxative, 500 MG tablet, Take 1 tablet by mouth in the morning., Disp: 90 tablet, Rfl: 3 Multiple Vitamins-Minerals (COMPLETE WOMENS PO), Take 1 [...] at a time per patient request, Disp: 77096 mL, Rfl: 11 omeprazole (PriLOSEC) [address] capsule, Take 1 capsule by mouth in the morning and 1 capsule beforebedtime. Do not crush or chew., Disp: 60 [...] MG tablet, Take 1 tablet by mouth in the morning and 1 tablet before bedtime., Disp: , Rfl: rosuvastatin (Crestor) 20 MG tablet, Take 1 tablet by mouth nightly., Disp: , Rfl: spironolactone (Aldactone) 50 MG tablet, Take 1 tablet (50 mg) by mouth 1 (one) time each day., Disp: 30 each, Rfl: 2 zinc sulfate (Zincate) 220 (50 Zn) MG capsule, Take 1 capsule by mouth in the morning and 1 capsulebefore bedtime., Disp: 60 capsule, Rfl: 2 Current Facility-Administered Medications: lidocaine 1% in sodium bicarbonate (buffered lidocaine)10 mL, 10 mL, Infiltration, Once, Shaniqua Mccurdy APRN Insert peripheral IV, , , Once AND Saline lock IV, , , Once AND sodium chloride 0.9 % flush10 mL, 10 mL, Intravenous, q12h AND sodium chloride 0.9 % flush 10 mL, 10 mL, Intravenous, PRN,Shaniqua Mccurdy APRN documented in this encounter Plan of Treatment Upcoming Encounters Date Type Department Care Team (Late st Contact Info) Description 06/27/2025 9:30 AM EDT Appointment [facility] [address] [place] [address] 06/27/2025 10:30 AM EDT Appointment [facility] [address] [place] [address] 07/04/2025 10:30 AM EDT Appointment [facility] [address] [place] [address] 07/04/2025 11:30 AM EDT Appointment [facility] [address] [place] [address] 07/09/2025 2:40 PM EDT Office Visit [facility] [address] [facility], [address] [place] [address] Ar Dominique MD [address] [facility] [address] [place] [address] 07/11/2025 10:30 AM EDT Appointment [facility] [address] [place] [address] 07/11/2025 11:30 AM EDT Appointment [facility] [address] [place] [address] 07/18/2025 10:30 AM EDT Appointment [facility] [address] [place] [address] 07/18/2025 11:30 AM EDT Appointment [facility] [address] [place] [address] 07/25/2025 10:30 AM EDT Appointment [facility] [address] [place] [address] 07/25/2025 11:30 AM EDT Appointment [facility] [address] [place] [address] 07/31/2025 9:00 AM EDT Office Visit [facility] [address] [place] [address] Alvarez Zimmer MD [address] [place] [address] 08/20/2025 9:30 AM EDT Clinical Support [facility] [address] [place] [address] 08/20/2025 10:30 AM EDT Social Work [facility] [address] [place] [address] [place] [address] 08/20/2025 11:00 AM EDT Office Visit [facility] [address] [place] [address] Jued Duque MD [address] [place] [address] 10/30/2025 1:20 PM EST Office Visit [facility] [address] [place] [phone] Sharif Moreno S, DPM [address] [place] [address] documented as of this encounter Procedures Procedure Name Priority Date/Time Associated Diagnosis Comments US GUIDED ABDOMINAL PARACENTESIS Routine 04/25/2025 12:13 PM EDT Other ascites US CHEST Routine 04/25/2025 12:13 PM EDT Other ascites BODY FLUID CELL COUNT W/ MANUAL DIFFERENTIAL Routine 04/25/2025 11:18 AM EDT BODY FLUID, CYTOSPIN, PATHOLOGIST INTERPRETATION Routine 04/25/2025 11:18 AM EDT TOTAL PROTEIN, PERITONEAL FLUID Routine 04/25/2025 11:18 AM EDT documented in this encounter Results * US Chest (04/25/2025 12:13 PM EDT) Anatomical Region Laterality Modality Chest Ultrasound Impressions 05/01/2025 11:29 AM EDT Technically successful US-guided paracentesis. A total of 3 liters of clear yellow fluid was removed. A sample of the fluid was sent for laboratory analysis. US guided right thoracentesis not performed due to lung presence in fluid limiting safe window for percutaneous access. CRITICAL RESULT: No. COMMUNICATION: Per this written report. Preliminary report signed by Maria Dolores Ontiveros APRN on 04/25/2025 2:50 PM By electronically signing this report, I, the attending physician, attest that I was not present for the procedure(s) but agree with the final edited report. Drafted by Maria Dolores Ontiveros APRN on 04/25/2025 2:47 PM Final report signed by Gisella Mcguire MD on 05/01/2025 11:29 AM Narrative 05/01/2025 11:29 AM EDT CLINICAL INDICATION: 64 y.o. 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 She also has new right pleural effusion. She is presenting today for paracentesis and right thoracentesis. TECHNIQUE: Automotive Power Electronics Engineer: Maria Dolores Ontiveros APRN Secondary Electrical And Radio Mechanic: None. Nurse: Toribio Technologist: Lilliana Phillips Dose: NA Medications: Continuous physiologic monitoring provided by a qualified healthcare professional. Administered: 1% Lidocaine with sodium bicarbonate SQ. Antibiotics: NA Time out: 1114 Procedure: After discussion of risks and benefits, informed written consent was obtained. Appropriate time out was done to confirm patient identity and planned procedure. The patient was placed supine and initial limited ultrasound scan performed to begin an Ultrasound Guided Paracentesis. Strict hand hygiene protocol was observed with the operators doing a surgical hand scrub. All personnel in the room were attired in surgical hat and mask. The operators were in surgical hat, mask, sterile gloves and gowns. The site was prepped with 2% chlorhexidine for cutaneous antisepsis, followed by sterile barrier draping. Limited quadrant ultrasound was performed, which showed an anechoic fluid collection in the left lower quadrant. 1% buffered lidocaine used for local analgesia. Under real time US guidance, a 6 Fr safety-centesis catheter was advanced into the ascites. Ultrasound images were sent to permanent storage in PACS. A total of 3 liters of clear yellow fluid was removed. The centesis catheter was removed and occlusive dressing applied. Next, the patient was placed sitting up and initial limited right chest ultrasound scan performed, which showed a small anechoic fluid collection in the right pleural space. US guided right thoracentesis not performed due to lung presence in fluid limiting safe window for percutaneous access. The patient tolerated the procedure well. The patient left the IR suite in stable condition. COMPARISON: None. FINDINGS: Moderate volume ascites. Small right pleural effusion. COMPLICATION: No. Procedure Note Gisella Mcguire MD - 05/01/2025 CLINICAL INDICATION: 64 y.o. 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 She also has new right pleuraleffusion. She is presenting today for paracentesis and rightthoracentesis. TECHNIQUE: Automotive Power Electronics Engineer: Maria Dolores Ontiveros APRN Secondary Electrical And Radio Mechanic: None. Nurse: Toribio Technologist: Lilliana Phillips Dose: NA Medications: Continuous physiologic monitoring provided by a qualifiedhealthcare professional. Administered: 1% Lidocaine with sodiumbicarbonate SQ. Antibiotics: NA Time out: 1114 Procedure: After discussion of risks and benefits, informed written consent wasobtained. Appropriate time out was done to confirm patient identity andplanned procedure. The patient was placed supine and initial limitedultrasound scan performed to begin an Ultrasound Guided Paracentesis. Strict hand hygiene protocol was observed with the operators doing asurgical hand scrub. All personnel in the room were attired in surgicalhat and mask. The operators were in surgical hat, mask, sterile glovesand gowns. The site was prepped with 2% chlorhexidine for cutaneousantisepsis, followed by sterile barrier draping. Limited quadrant ultrasound was performed, which showed an anechoic fluidcollection in the left lower quadrant. 1% buffered lidocaine used forlocal analgesia. Under real time US guidance, a 6 Fr safety-centesiscatheter was advanced into the ascites. Ultrasound images were sent topermanent storage in PACS. A total of 3 liters of clear yellow fluid wasremoved. The centesis catheter was removed and occlusive dressingapplied. Next, the patient was placed sitting up and initial limited right chestultrasound scan performed, which showed a small anechoic fluid collectionin the right pleural space. US guided right thoracentesis not performeddue to lung presence in fluid limiting safe window for percutaneousaccess. The patient tolerated the procedure well. The patient left the IR suitein stable condition. COMPARISON: None. FINDINGS: Moderate volume ascites. Small right pleural effusion. COMPLICATION: No. IMPRESSION: Technically successful US-guided paracentesis. A total of 3 liters of clear yellow fluid was removed. A sample of the fluid was sent for laboratory analysis. US guided right thoracentesis not performed due to lung presence in fluidlimiting safe window for percutaneous access. CRITICAL RESULT: No. COMMUNICATION: Per this written report. Preliminary report signed by Maria Dolores Ontivreos APRN on 04/25/2025 2:50 PM By electronically signing this report, I, the attending physician, attestthat I was not present for the procedure(s) but agree with the finaledited report. Drafted by Maria Dolores Ontiveros APRN on 04/25/2025 2:47 PM Final report signed by Gisella Mcguire MD on 05/01/2025 11:29 AM us Marianna Gordon ADRI IMG US PROCEDURES Final Resu lt * US Guided Abdominal Paracentesis (04/25/2025 12:13 PM EDT) Anatomical Region Laterality Modality Abdomen Ultrasound Impressions 05/01/2025 11:29 AM EDT Technically successful US-guided paracentesis. A total of 3 liters of clear yellow fluid was removed. A sample of the fluid was sent for laboratory analysis. US guided right thoracentesis not performed due to lung presence in fluid limiting safe window for percutaneous access. CRITICAL RESULT: No. COMMUNICATION: Per this written report. Preliminary report signed by Maria Dolores Ontiveros APRN on 04/25/2025 2:50 PM By electronically signing this report, I, the attending physician, attest that I was not present for the procedure(s) but agree with the final edited report. Drafted by Maria Dolores Ontiveros APRN on 04/25/2025 2:47 PM Final report signed by Gisella Mcguire MD on 05/01/2025 11:29 AM Narrative 05/01/2025 11:29 AM EDT CLINICAL INDICATION: 64 y.o. 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 She also has new right pleural effusion. She is presenting today for paracentesis and right thoracentesis. TECHNIQUE: Automotive Power Electronics Engineer: Maria Dolores Ontiveros APRN Secondary Electrical And Radio Mechanic: None. Nurse: Toribio Technologist: Lilliana Phillips Dose: NA Medications: Continuous physiologic monitoring provided by a qualified healthcare professional. Administered: 1% Lidocaine with sodium bicarbonate SQ. Antibiotics: NA Time out: 1114 Procedure: After discussion of risks and benefits, informed written consent was obtained. Appropriate time out was done to confirm patient identity and planned procedure. The patient was placed supine and initial limited ultrasound scan performed to begin an Ultrasound Guided Paracentesis. Strict hand hygiene protocol was observed with the operators doing a surgical hand scrub. All personnel in the room were attired in surgical hat and mask. The operators were in surgical hat, mask, sterile gloves and gowns. The site was prepped with 2% chlorhexidine for cutaneous antisepsis, followed by sterile barrier draping. Limited quadrant ultrasound was performed, which showed an anechoic fluid collection in the left lower quadrant. 1% buffered lidocaine used for local analgesia. Under real time US guidance, a 6 Fr safety-centesis catheter was advanced into the ascites. Ultrasound images were sent to permanent storage in PACS. A total of 3 liters of clear yellow fluid was removed. The centesis catheter was removed and occlusive dressing applied. Next, the patient was placed sitting up and initial limited right chest ultrasound scan performed, which showed a small anechoic fluid collection in the right pleural space. US guided right thoracentesis not performed due to lung presence in fluid limiting safe window for percutaneous access. The patient tolerated the procedure well. The patient left the IR suite in stable condition. COMPARISON: None. FINDINGS: Moderate volume ascites. Small right pleural effusion. COMPLICATION: No. Procedure Note Gisella Mcguire MD - 05/01/2025 CLINICAL INDICATION: 64 y.o. 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 She also has new right pleuraleffusion. She is presenting today for paracentesis and rightthoracentesis. TECHNIQUE: Automotive Power Electronics Engineer: Maria Dolores Ontiveros APRN Secondary Electrical And Radio Mechanic: None. Nurse: Toribio Technologist: Lilliana Phillips Dose: NA Medications: Continuous physiologic monitoring provided by a qualifiedhealthcare professional. Administered: 1% Lidocaine with sodiumbicarbonate SQ. Antibiotics: NA Time out: 1113 Procedure: After discussion of risks and benefits, informed written consent wasobtained. Appropriate time out was done to confirm patient identity andplanned procedure. The patient was placed supine and initial limitedultrasound scan performed to begin an Ultrasound Guided Paracentesis. Strict hand hygiene protocol was observed with the operators doing asurgical hand scrub. All personnel in the room were attired in surgicalhat and mask. The operators were in surgical hat, mask, sterile glovesand gowns. The site was prepped with 2% chlorhexidine for cutaneousantisepsis, followed by sterile barrier draping. Limited quadrant ultrasound was performed, which showed an anechoic fluidcollection in the left lower quadrant. 1% buffered lidocaine used forlocal analgesia. Under real time US guidance, a 6 Fr safety-centesiscatheter was advanced into the ascites. Ultrasound images were sent topermanent storage in PACS. A total of 3 liters of clear yellow fluid wasremoved. The centesis catheter was removed and occlusive dressingapplied. Next, the patient was placed sitting up and initial limited right chestultrasound scan performed, which showed a small anechoic fluid collectionin the right pleural space. US guided right thoracentesis not performeddue to lung presence in fluid limiting safe window for percutaneousaccess. The patient tolerated the procedure well. The patient left the IR suitein stable condition. COMPARISON: None. FINDINGS: Moderate volume ascites. Small right pleural effusion. COMPLICATION: No. IMPRESSION: Technically successful US-guided paracentesis. A total of 3 liters of clear yellow fluid was removed. A sample of the fluid was sent for laboratory analysis. US guided right thoracentesis not performed due to lung presence in fluidlimiting safe window for percutaneous access. CRITICAL RESULT: No. COMMUNICATION: Per this written report. Preliminary report signed by Maria Dolores Ontiveros APRN on 04/25/2025 2:50 PM By electronically signing this report, I, the attending physician, attestthat I was not present for the procedure(s) but agree with the finaledited report. Drafted by Maria Dolores Ontiveros APRN on 04/25/2025 2:47 PM Final report signed by Gisella Mcguire MD on 05/01/2025 11:29 AM us Marianna Gordon APRN IMG US PROCEDURES Final Resu lt * Body fluid, cytospin, pathologist interpretation (04/25/2025 11:18 AM EDT) Specimen Type Body Fluid LAB HEMATOLOGY METHOD 04/26/2025 4:05 PM EDT [facility] Specimen Source, Body Fluid Peritoneal Fluid LAB HEMATOLOGY METHOD 04/26/2025 4:05 PM EDT [facility] Clinical Diagnosis, Body Fluid Ascites secondary to decompensated cirrhosis LAB HEMATOLOGY METHOD 04/26/2025 4:05 PM EDT [facility] Interpretation , Body Fluid No evidence of malignancy; chronic inflammatory cells, lymphocytosis. light blood A resident was involved in the service. I attest I examined the relevant preparations for the specimens and confirmed the diagnosis or interpretation. 04/26/2025 4:05 PM EDT [facility] Pathologist Signature, Body Fluid 04/26/2025 4:05 PM EDT [facility] Comment:Reviewed by: Iza Blue MD LAB CP ASR DISCLAIMER Yes 04/26/2025 4:05 PM EDT [facility] Body Fluid Peritoneal fluid / Unknown Non-blood Collection / Unknown 04/25/2025 11:18 AM EDT 04/25/2025 12:38 PM EDT Maria Dolores Ontiveros APRN, DNP LAB BODY FLUIDS AND STOO LS ORDERABLES Final Result Performing Organization Address [facility] Co de Phone Number [facility] [address] [place] [address] * Protein - Ascites (04/25/2025 11:18 AM EDT) Total Protein, Fluid 1 g/dL 04/25/2025 1:22 PM EDT [facility] Ascites Peritoneal cavity structure / Unknown 04/25/2025 11:18 AM EDT 04/25/2025 12:38 PM EDT Narrative [facility] - 04/25/2025 1:22 PM EDT This test was developed and its performance characteristics determined by [facility]. The U.S. Food and Drug Administration has not approved or cleared this test. However, FDA clearance or approval is not currently required for clinical use. The results are not intended to be used as the sole means for clinical diagnosis or patient management decisions. us Maria Dolores Ontiveros APRN, DNP LAB BODY FLUIDS AND STOO LS ORDERABLES Final Result Performing Organization Address [facility] Co de Phone Number [facility] [address] [place] [address] * (ABNORMAL) Body Fluid Cell Count With Diff - Ascites (04/25/2025 11:18 AM EDT) Color, Body fluid [place] LAB HEMATOLOGY METHOD 04/25/2025 5:23 PM EDT [facility] Appearance, Body fluid Cloudy(A) LAB HEMATOLOGY METHOD 04/25/2025 5:23 PM EDT [facility] Volume, Body fluid 9.0 cc LAB HEMATOLOGY METHOD 04/25/2025 5:23 PM EDT [facility] Fluid Container Tube 3 LAB HEMATOLOGY METHOD 04/25/2025 5:23 PM EDT [facility] Red Blood Cell Count, Body fluid 9,000 uL LAB HEMATOLOGY METHOD 04/25/2025 5:23 PM EDT [facility] Total Nucleated Cell Count, Body fluid 222 uL LAB HEMATOLOGY METHOD 04/25/2025 5:23 PM EDT [facility] Neutrophils %, Body fluid 2 % LAB HEMATOLOGY METHOD 04/25/2025 5:23 PM EDT [facility] Lymphocytes %, Body fluid 93 % LAB HEMATOLOGY METHOD 04/25/2025 5:23 PM EDT [facility] Monocytes/Macro phages %, Body fluid 3 % LAB HEMATOLOGY METHOD 04/25/2025 5:23 PM EDT [facility] Eosinophils %, Body fluid 0 % LAB HEMATOLOGY METHOD 04/25/2025 5:23 PM EDT [facility] Lining/Mesothel ial Cells %, Body fluid 2 % LAB HEMATOLOGY METHOD 04/25/2025 5:23 PM EDT [facility] Neutrophils Absolute (PMN), Body fluid 4 uL LAB HEMATOLOGY METHOD 04/25/2025 5:23 PM EDT [facility] Lymphocytes Absolute, Body fluid 206 uL LAB HEMATOLOGY METHOD 04/25/2025 5:23 PM EDT [facility] Monocytes/Macro phages Absolute, Body fluid 7 uL LAB HEMATOLOGY METHOD 04/25/2025 5:23 PM EDT [facility] Eosinophils Absolute, Body fluid 0 uL LAB HEMATOLOGY METHOD 04/25/2025 5:23 PM EDT [facility] Basophils Absolute, Body fluid 0 uL LAB HEMATOLOGY METHOD 04/25/2025 5:23 PM EDT [facility] Lining/Mesothel ial Cells Absolute, Body fluid 4 uL LAB HEMATOLOGY METHOD 04/25/2025 5:23 PM EDT [facility] Comment, Body fluid None LAB HEMATOLOGY METHOD 04/25/2025 5:23 PM EDT [facility] Basophils %, Body fluid 0 % LAB HEMATOLOGY METHOD 04/25/2025 5:23 PM EDT [facility] Body Fluid Peritoneal fluid / Unknown Non-blood Collection / Unknown 04/25/2025 11:18 AM EDT 04/25/2025 12:38 PM EDT Maria Dolores Ontiveros APRN, DNP LAB BODY FLUIDS AND STOOLS ORDERABLES NO SPECIMEN TYPE/SOURCE Final Result [facility] [address] [place] [address] documented in this encounter Visit Diagnoses Diagnosis Other ascites documented in this encounter Administered Medications Inactive Administered Medications - up to 3 most recent administrations Medication Order MAR Action Action Date Dose Rate Site albumin human 25 % infusion 37.5 g 37.5 g, Intravenous, Once as needed, 1 dose, Starting on Sarahi 04/25/25 at 0943, Until Sarahi 04/25/25 at 1129, Routine, Holding - Preprocedure, For 5-6.9 L drained New Bag 04/25/2025 11:29 AM EDT 37.5 g lidocaine (Xylocaine) 1 % injection Intradermal, As needed, Starting on Sarahi 04/25/25 at 1115, Until Sarahi 04/25/25 at 1115, Routine, Intraprocedure Given 04/25/2025 11:15 AM EDT 10 mL documented in this encounter Additional Health Concerns Assessment Noted Time PHQ-9 Depression Total Score: 0 03/06/20 25 1:21 PM EDT A fall risk assessment has been complete d for the patient 04/10/2025 10:50 AM EDT A Body Mass Index follow-up plan has been documented for the patient 04/25/2025 12:21 PM EDT documented as of this encounter Care Teams Electrophysiologist Relationship Specialty Start Date End Date Alvarez Zimmer MD [address] [place] [address] PCP - General Family Medicine 12/07/24 Lea Fernando [address] [facility] [address] [place] [address] Nuclear Reactor Operator Endocrinology 08/29/24 Rachel Ray APRN [address] [phone] Nurse Practitioner Gastroenterology 09/24/24 documented as of this encounter
--- OUTSIDE RECORDS SUMMARY | 2025-05-02 09:16 | XMS_ITS | Encounter Summary ---
Author Organization [facility] Address [address] [id number] Care Team Providers Care Automotive Services Manager Name Role Phone Lea Fernando Unavailable [phone] Rachel Ray MAT CUTTER Unavailable [phone] Alvarez Zimmer MD Primary Care Provider [phone] Reason for Referral * Clinic-Administered Medication (Routine) - Closed Specialty Diagnoses / Procedures Referred By Eder zhu Referred To Contact Diagnoses Other ascites Procedures AR ABDOM PARACENTESIS DX/THER W IMAGING GUIDANCE Shaniqua Mccurdy APRN [address] [place] [address] Phone: tel: fax: [facility] [address] [place] [address] Phone: tel: fax: Referral ID Status Reason Start Date Expiration Date Visits Re quested Visits Authorized [id number] Closed 05/02/2025 11/01/2026 1 1 * Imaging (Routine) - Closed Specialty Diagnoses / Procedures Referred By Eder zhu Referred To Contact Radiology Diagnoses Other ascites Procedures US Guided Abdominal Paracentesis Marianna Gordon APRN [address] [place] [address] Phone: tel: fax: Referral ID Status Reason Start Date Expiration Date Visits Re quested Visits Authorized [id number] Closed 04/18/2025 10/18/2026 1 1 Reason for Visit * Imaging (Routine) - Closed Specialty Diagnoses / Procedures Referred By Eder zhu Referred To Contact Radiology Diagnoses Other ascites Procedures US Guided Abdominal Paracentesis Marianna Gordon APRN [address] [place] [address] Phone: tel: fax: Referral ID Status Reason Start Date Expiration Date Visits Re quested Visits Authorized [id number] Closed 04/18/2025 10/18/2026 1 1 Encounter Details Date Type Department Care Team (Latest Contact Info) Description 05/02/2025 9:16 AM EDT - 05/02/2025 11:59 PM EDT Hospital Encounter [facility] Interventional Radiology [address] [place] [address] Allison Mckee Other ascites Discharge Disposition: Home or Self [...] 01/10/2025 How often do you attend chur ch or nondenominational services? Patient unable to answer 01/10/2025 Do you belong to any clubs o r organizations such as mandaeism groups, unions, fraternal or athletic groups, or [...] Recorded Patient Health Questionnaire-2 Score 2 04/10/2025 [facility] - Occupational [...] place to sleep or slept in a assisted (including now)? Yes 08/29/2024 PHQ-9 Answer Date [...] any time in the past 12 m [facility], were you homeless or living in a assisted (including now)? No 03/06/2025 CAGE ASSESSMENT Answer [...] drink first t kennedy in the morning (EYE-CLINICAL NURSING COORDINATOR) to steady your nerves or to get [...] Sign Reading Time Taken Comments Blood Pressure 106/62 05/02/2025 12:25 PM EDT Pulse 67 05/02/2025 12:25 PM EDT Temperature 36.2 C (97.1 F) 05/02/2025 9:35 AM EDT Respiratory Rate 17 05/02/2025 12:25 PM EDT Oxygen Saturation 99% 05/02/2025 12:25 PM EDT Inhaled Oxygen Concentration - - Weight 81.3 kg (179 lb 3.7 oz) 05/02/2025 9:27 A M EDT Height 165.1 cm (5' 5 ) 05/02/2025 9:27 AM EDT Body Mass Index 29.83 05/02/2025 9:27 AM EDT documented in this encounter Functional Status * Calculated C-SSRS Risk Score (Lifetime/Recent) Answer Date of Assessment Author No Risk Indicated 05/02/2025 9:45 AM EDT Allison Mckee * Question Answer Date of Assessment Author 1. Wish to be (Past 1 Month) No 025 9:45 AM EDT Allison Mckee 2. Non-Specific Active Suici liz Thoughts (Past 1 Month) No 05/02/2025 9:45 AM EDT Justyn Mckee 6. Suicidal Behavior (Lifetime) No 9:45 AM EDT Allison Mckee documented as of this encounter Medications at Time of Discharge [...] 1 03/01/2025 ergocalciferol (Vitamin D-2) 1.25 MG (52908 UT) capsuleIndications: Vitamin D deficiency Take 1 [...] hyperglycemia, with long-term current use of insulin (CMS/HCC) Inject 0.6 mg under the skin 1 [...] cases at a time per patient request 99135 mL 11 10/02/2024 05/07/20 25 omeprazole (PriLOSEC) [...] as of this encounter Miscellaneous Notes * Post-Procedure Note - Shaniqua Mccurdy APRN - 05/02/2025 11:00 AM EDT Vascular and Interventional Radiology Brief Postprocedure Note Performed by; Shaniqua Mccurdy APRN Pre-operative Diagnosis: Ascites Post-operative Diagnosis: same Type of Anesthesia: Local Description of Findings: Large anechoic fluid collection in peritoneal space Technical/Surgical Procedures Used: US guided paracentesis. Specimen Obtained: Yes Complications: None Estimated Blood Loss: none Procedure Events Event Event Time See detailed result report with images in PACS. The patient tolerated the procedure well without incident or complication and is in stable condition. * Post-Procedure Note - Shaniqua Mccurdy APRN - 05/02/2025 11:00 AM EDT -No thoracentesis performed, small right pleural effusion with lung sliding in/out of window. Patient on room air, no dyspnea. * H&P - Shaniqua Mccurdy APRN - 05/02/2025 11:00 AM EDT 05/02/25 Patient: Gabi Zimmer Date of : 1960/64 y.o. Chief Complaint: Here for paracentesis and thoracentesis. History of Present Illness: Gabi Zimmer is a 64 y.o. 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 History and admission information obtained from chart review of primary and consulting teams notation , as well as speaking directly to consulting team. The following portions of the chart were reviewed this encounter and updated as appropriate: Review of Systems: 14 point ROS negative except for above. Past Medical History Pertinent Negatives[1] Surgical History[2] Social History[3] Family History: Personally reviewed and noncontributory. Allergies[4] Objective: All laboratory, images, tracings, and vital sign data are personally reviewed unless otherwise noted. VITALS: Weight: 81.3 kg (179 lb 3.7 oz) Body mass index is 29.83 kg/m??. I & O SUMMARY No intake/output data recorded. No intake/output data recorded. MEDICATIONS: Current Medications[5] LABS (PAST 18Labs in last 18 hours) [...] Alb ?? D.Bili ?? HOURS) EXAM: GENERAL: WD, WN, NAD. EYES: PERRL; No scleral icterus or conjunctivitis HENT: Atraumatic, normocephalic NECK: Supple. RESP/CHEST: Symmetric expansion; non labored. CARD: regular rate and rhythm, normal S1 and S2, no murmur, rub, or gallop Extremities: No edema, no cyanosis or clubbing. Pedal pulses palpable +2. GI: No organomegaly or masses. Soft, Nontender, nondistended. Bowel sounds present x 4. SKIN: No rash, sores, lesions or subcutaneous nodules. NEURO: AAOx4. Motor intact and no focal deficits Radiographics/Diagnostics: Imaging personally reviewed and reviewed with [...] Total DLP (Dose-Length Product): 1722.82 mGy.cm (accession [id number]), 1722.82 mGy.cm (accession [id number]). Please note: The reported value represents the [...] no aneurysm of either internal carotid artery. [place] and Major Peripheral Branches: There [...] Dean MD on 01/08/2025 12:31 PM === 04/18/25 === XR CHEST 1 VIEW - Narrative - CLINICAL INDICATION: s/p thora TECHNIQUE: XR CHEST 1 VIEW COMPARISON: April 11, 2025 FINDINGS: No pneumothorax. Basal opacities are likely atelectasis. Mediastinal and cardiac contours are stable. - Impression - No pneumothorax. CRITICAL RESULT: No. COMMUNICATION: Per this written report Drafted by Bari Aguillon MD on 04/18/2025 1:16 PM Final report signed by Bari Aguillon MD on 04/18/2025 1:16 PM Echo, Adult Transthoracic Complete Result Date: 10/17/2024 [...] is no recent study available for direct [id number] comparison. Assessment & Plan[facility] Ascites Hepatic hydrothorax MELD 3.0: 20 at 04/04/2025 8:03 AM MELD-Na: 18 at 04/04/2025 8:03 AM Calculated from: Serum Creatinine: 1.41 mg/dL at 04/04/2025 8:03 AM Serum Sodium: 137 mmol/L at 04/04/2025 8:03 AM Total Bilirubin: 2 mg/dL at 04/04/2025 8:03 AM Serum Albumin: 2.7 g/dL at 04/04/2025 8:03 AM INR(ratio): 1.7 at 04/04/2025 8:03 AM Age at listin years Sex: Female at 04/04/2025 8:03 AM - Personally reviewed 04/25/25: Paracentesis with 3L removed. Thoracentesis not performed, insufficient fluid. - On Aldactone - INR ??, PTT ??, Plt ?? - VSS, Afebrile PLAN: - Will perform paracentesis and possible thoracentesis today. - Will consent prior to procedure - Denies/held anticoagulation Thank you for allowing us to participate in the care of this patient. Shaniqua Mccurdy, MAT CUTTER Interventional Radiology [phone] [1] Past Medical History: Diagnosis Date ADHD (attention deficit hyperactivity disorder) Allergic Anxiety disorder, unspecified Anxiety Bleeding gums Blood in urine Cataract Chronic kidney disease Cirrhosis (CMS/HCC) Colon cancer screening 09/20/2019 Added automatically from request for surgery [id number] Coronary artery disease Depression 1995 Diabetes mellitus [...] Asthma Unspecified osteoarthritis, unspecified site Arthritis [2] Past Surgical History: Procedure Laterality Date APPENDECTOMY 1979 BLADDER SURGERY N/A Bladder surgery from [facility] BREAST BIOPSY 2011 BREAST SURGERY 2010 BUNIONECTOMY Right CATARACT EXTRACTION Bilateral 2016 CHOLECYSTECTOMY 1980 ESOPHAGOGASTRODUODENOSCOPY HYSTERECTOMY N/A Hysterectomy from [facility] KNEE SURGERY Bilateral ORAL SURGERY N/A Oral surgery from [facility] OTHER SURGICAL HISTORY 2015 ROOT CANAL WISDOM TOOTH EXTRACTION [3] Social History Tobacco Use Smoking status: Never Passive exposure: Never Smokeless tobacco: Never Vaping Use Vaping status: Never Used Substance Use Topics Alcohol use: Not Currently Drug use: Never [4] No Known Allergies [5] Current Outpatient Medications: Abaloparatide (Tymlos) 3120 MCG/1.56ML [...] (one) time each day., Disp: , Rfl: capsaicin (Zostrix) 0.025 % cream, Apply thin layer to feet nightly WITH GLOVES, Disp: 56.6 g, Rfl:1 cetirizine (ZyrTEC) 10 MG tablet, Take 1 tablet by mouth daily., Disp: 30 tablet, Rfl: 2 cholecalciferol (Vitamin D-3) 25 MCG (1000 UT) tablet, Take 1 tablet by mouth daily., Disp: 90 tablet, Rfl: 2 ciprofloxacin (Cipro) 500 MG tablet, Take 1 tablet by mouth daily., Disp: 90 tablet, Rfl: 1 ergocalciferol (Vitamin D-2) 1.25 MG (22054 UT) capsule, Take 1 capsule by mouth [...] at a time per patient request, Disp: 85563 mL, Rfl: 11 omeprazole (PriLOSEC) 40 MG [...] (buffered lidocaine)10 mL, 10 mL, Infiltration, Once, Marianna Gordon, MAT CUTTER Insert peripheral IV, , , Once AND Saline lock IV, , , Once AND sodium chloride 0.9 % flush10 mL, 10 mL, Intravenous, q12h AND sodium chloride 0.9 % flush 10 mL, 10 mL, Intravenous, PRN,Marianna Gordon MAT CUTTER * Allison Mortensen - 05/02/2025 9:56 AM EDT Images from the original note were not included. [id number] Discharge Instructions for Paracentesis Paracentesis is a [...] fainting. Last Reviewed Date: 2025 00:00:00 ?? [id number] [employer]. All rights reserved. This information is not intended as a substitute for professional medical care. Always follow your healthcare professional's instructions. documented in this encounter Plan of Treatment Upcoming Encounters Date Type Department Care Team (Late st Contact Info) Description 06/27/2025 9:30 AM EDT Appointment [facility] Inter[facility] Radiology [address] [place] [address] 06/27/2025 10:30 AM EDT Appointment [facility] Inter[facility] Radiology [address] [place] [address] 07/04/2025 10:30 AM EDT Appointment [facility] Inter[facility] Radiology [address] [place] [address] 07/04/2025 11:30 AM EDT Appointment [facility] Inter[facility] Radiology [address] [place] [address] 07/09/2025 2:40 PM EDT Office Visit [facility] [address], [address] [place] [address] Ar Dominique MD [address] [place] [address] 07/11/2025 10:30 AM EDT Appointment [facility] Interventional Radiology [address] [place] [address] 07/11/2025 11:30 AM EDT Appointment [facility] Inter[facility] Radiology [address] [place] [address] 07/18/2025 10:30 AM EDT Appointment [facility] Inter[facility] Radiology [address] [place] [address] 07/18/2025 11:30 AM EDT Appointment [facility] Inter[facility] Radiology [address] [place] [address] 07/25/2025 10:30 AM EDT Appointment [facility] Inter[facility] Radiology [address] [place] [address] 07/25/2025 11:30 AM EDT Appointment [facility] Inter[facility] Radiology [address] [place] [address] 07/31/2025 9:00 AM EDT Office Visit [facility] [address] [place] [address] Alvarez Zimmer MD [address] [place] [address] 08/20/2025 9:30 AM EDT Clinical Support [facility] [address] [facility] [address] [place] [address] 08/20/2025 10:[address] [facility] [address] [place] [address] Deysi Ortega [place], [place] [id number] 08/20/2025 11:00 AM EDT Office Visit [facility] [address] [place] [address] Jude Duque MD [address] [place] [address] 10/30/2025 1:20 PM EST Office Visit [facility] [address] [place] [address] Sharif Moreno, ROSY [address] [place] [address] documented as of this encounter Procedures Procedure Name Priority Date/Time Associated Diagnosis Comments US GUIDED ABDOMINAL PARACENTESIS Routine 05/02/2025 11:58 AM EDT Other ascites US CHEST Routine 05/02/2025 11:58 AM EDT Other ascites BODY FLUID CELL COUNT W/ MANUAL DIFFERENTIAL Routine 05/02/2025 11:40 AM EDT BODY FLUID, CYTOSPIN, PATHOLOGIST INTERPRETATION Routine 05/02/2025 11:40 AM EDT TOTAL PROTEIN, PERITONEAL FLUID Routine 05/02/2025 11:40 AM EDT GLUCOSE, PERITONEAL FLUID Routine 05/02/2025 11:40 AM EDT documented in this encounter Results * US Chest (05/02/2025 11:58 AM EDT) Anatomical Region Laterality Modality Chest Ultrasound Impressions 05/02/2025 2:04 PM EDT Small right effusion, no safe window available for therapeutic thoracentesis. Pt currently denies cough of SOB. CRITICAL RESULT: No. COMMUNICATION: Per this written report. Preliminary report signed by SOLANGE Singleton on 05/02/2025 12:06 PM By electronically signing this report, I, the attending physician, attest that I was not present for the procedure(s) but agree with the final edited report. Drafted by SOLANGE Singleton on 05/02/2025 12:05 PM Final report signed by Dina Rose MD on 05/02/2025 2:04 PM Narrative 05/02/2025 2:04 PM EDT CLINICAL INDICATION: Pleural effusion TECHNIQUE: The original examination requested was thoracentesis; however, the study was not performed. COMPARISON: None. FINDINGS: Small right pleural effusion, lung sliding in and out of window. Procedure Note Dina Rose MD - 05/02/2025 CLINICAL INDICATION: Pleural effusion TECHNIQUE: The original examination requested was thoracentesis; however, the studywas not performed. COMPARISON: None. FINDINGS: Small right pleural effusion, lung sliding in and out of window. IMPRESSION: Small right effusion, no safe window available for therapeuticthoracentesis. Pt currently denies cough of SOB. CRITICAL RESULT: No. COMMUNICATION: Per this written report. Preliminary report signed by SOLANGE Singleton on 05/02/2025 12:06 PM By electronically signing this report, I, the attending physician, attestthat I was not present for the procedure(s) but agree with the finaledited report. Drafted by SOLANGE Singleton on 05/02/2025 12:05 PM Final report signed by Dina Rose MD on 05/02/2025 2:04 PM us Marianna N Evan MAT CUTTER IMG US PROCEDURES Final Resu lt * US Guided Abdominal Paracentesis (05/02/2025 11:58 AM EDT) Anatomical Region Laterality Modality Abdomen Ultrasound Impressions 05/02/2025 2:11 PM EDT Technically successful US-guided paracentesis. A total of 4.5 liters of clear yellow fluid was removed. A sample of the fluid was sent for laboratory analysis. Administered Albumin 37.5 g IV once post procedure CRITICAL RESULT: No. COMMUNICATION: Per this written report. Preliminary report signed by SOLANGE Singleton on 05/02/2025 12:08 PM By electronically signing this report, I, the attending physician, attest that I was not present for the procedure(s) but agree with the final edited report. Drafted by SOLANGE Singleton on 05/02/2025 12:07 PM Final report signed by Dina Rose MD on 05/02/2025 2:11 PM Narrative 05/02/2025 2:11 PM EDT CLINICAL INDICATION: 64 year old female with decompensated cirrhosis with ascites. TECHNIQUE: Director Of Cardiology Service Line: Shaniqua Mccurdy APRN Secondary Svp Group Director: None. Nurse: PARK Yeboah Technologist: Lilliana Phillips Dose: NA Medications: Continuous physiologic monitoring provided by a qualified healthcare professional. Administered: 1% Lidocaine SQ. Antibiotics: NA Time out: 1136 Procedure: After discussion of risks and benefits, [...] showed an anechoic fluid collection in the right lower quadrant. 1% lidocaine used for local analgesia. Under real time US guidance, a 6 Fr safety-centesis catheter was advanced into the ascites. Ultrasound images were sent to permanent storage in PACS. A total of 4.5 liters of clear yellow fluid was removed. The centesis catheter was removed and occlusive dressing applied. The patient tolerated the procedure well. The patient left the IR suite in stable condition. COMPARISON: None. FINDINGS: Moderate volume ascites. COMPLICATION: No. Procedure Note Dina Rose MD - 05/02/2025 CLINICAL INDICATION: 64 year old female with decompensated cirrhosis with ascites. TECHNIQUE: Director Of Cardiology Service Line: Shaniqua Mccurdy APRN Secondary Svp Group Director: None. Nurse: PARK Yeboah Technologist: Lilliana Phillips Dose: NA Medications: Continuous physiologic monitoring provided by a qualifiedhealthcare professional. Administered: 1% Lidocaine SQ. Antibiotics: NA Time out: 1136 Procedure: After discussion of risks and benefits, [...] which showed an anechoic fluidcollection in the right lower quadrant. 1% lidocaine used for localanalgesia. Under real time US guidance, a 6 Fr safety-centesis catheterwas advanced into the ascites. Ultrasound images were sent to permanentstorage in PACS. A total of 4.5 liters of clear yellow fluid was removed.The centesis catheter was removed and occlusive dressing applied. The patient tolerated the procedure well. The patient left the IR suitein stable condition. COMPARISON: None. FINDINGS: Moderate volume ascites. COMPLICATION: No. IMPRESSION: Technically successful US-guided paracentesis. A total of 4.5 liters of clear yellow fluid was removed. A sample of the fluid was sent for laboratory analysis. Administered Albumin 37.5 g IV once post procedure CRITICAL RESULT: No. COMMUNICATION: Per this written report. Preliminary report signed by SOLANGE Singleton on 05/02/2025 12:08 PM By electronically signing this report, I, the attending physician, attestthat I was not present for the procedure(s) but agree with the finaledited report. Drafted by SOLANGE Singleton on 05/02/2025 12:07 PM Final report signed by Dina Rose MD on 05/02/2025 2:11 PM us Marianna Gordon MAT CUTTER IMG US PROCEDURES Final Resu lt * Body fluid, cytospin, pathologist interpretation (05/02/2025 11:40 AM EDT) Specimen Type Body Fluid LAB HEMATOLOGY METHOD 05/03/2025 4:49 PM EDT [facility] Specimen Source, Body Fluid Peritoneal Fluid LAB HEMATOLOGY METHOD 05/03/2025 4:49 PM EDT [facility] Clinical Diagnosis, Body Fluid Ascites LAB HEMATOLOGY METHOD 05/03/2025 4:49 PM EDT [facility] Interpretation , Body Fluid No evidence of malignancy Chronic inflammatory cells Lymphocytosis Light blood A resident was involved in the service. I attest I examined the relevant preparations for the specimens and confirmed the diagnosis or interpretation. 05/03/2025 4:49 PM EDT [facility] Pathologist Signature, Body Fluid 05/03/2025 4:49 PM EDT [facility] Comment:Reviewed by: Kadie dobbs MD LAB CP ASR DISCLAIMER Yes 05/03/2025 4:49 PM EDT [facility] Body Fluid Peritoneal fluid / Unknown Non-blood Collection / Unknown 05/02/2025 11:40 AM EDT 05/02/2025 1:35 PM EDT us Shaniqua Mccurdy MAT CUTTER LAB BODY FLUIDS AND STOOLS O RDERABLES Final Result [facility] [address] [place] [address] * Glucose - Ascites (05/02/2025 11:40 AM EDT) Glucose, Fluid 232 mg/dL 05/02/2025 3:46 PM EDT [facility] Peritoneal Fluid Peritoneal cavity structure / Unknown Non-blood Collection / Unknown 05/02/2025 11:40 AM EDT 05/02/2025 1:35 PM EDT Narrative [facility] - 05/02/2025 3:46 PM EDT Peritoneal/Ascites No established reference interval. Results should be interpreted in comparison to the concentration in blood and in conjunction with the clinical context. Normal peritoneal fluid glucose is similar to serum concentrations. Decreased ascitic fluid to serum glucose ratios can occur with bacterial peritonitis. Secondary peritonitis is likely if 2 of 3 of the following is met in peritoneal fluid: 1) Total protein > 1g/dL; 2) LDH >upper limit of normal for plasma; 3) Glucose < 50 mg/dL. Shaniqua Mccurdy MAT CUTTER LAB BODY FLUIDS AND STOOLS O RDERABLES Final Result Performing Organization Address [facility] Co de Phone Number [facility] [address] [place] [address] * Protein - Ascites (05/02/2025 11:40 AM EDT) Total Protein, Fluid 1.4 g/dL 05/02/2025 3:46 PM EDT [facility] Peritoneal Fluid Peritoneal cavity structure / Unknown Non-blood Collection / Unknown 05/02/2025 11:40 AM EDT 05/02/2025 1:35 PM EDT Narrative [facility] - 05/02/2025 3:46 PM EDT This test was developed and its performance characteristics determined by [facility]. The U.S. Food and Drug Administration has not approved or cleared this test. However, FDA clearance or approval is not currently required for clinical use. The results are not intended to be used as the sole means for clinical diagnosis or patient management decisions. Shaniqua Mccurdy APRN LAB BODY FLUIDS AND STOOLS O RDERABLES Final Result Performing Organization Address [facility] Co de Phone Number [facility] [address] [place] [address] * (ABNORMAL) Body Fluid Cell Count With Diff - Ascites (05/02/2025 11:40 AM EDT) Color, Body fluid [place] LAB HEMATOLOGY METHOD 05/02/2025 6:50 PM EDT [facility] Appearance, Body fluid Cloudy(A) LAB HEMATOLOGY METHOD 05/02/2025 6:50 PM EDT [facility] Volume, Body fluid 8.0 cc LAB HEMATOLOGY METHOD 05/02/2025 6:50 PM EDT [facility] Fluid Container Tube 3 LAB HEMATOLOGY METHOD 05/02/2025 6:50 PM EDT [facility] Red Blood Cell Count, Body fluid 8,000 uL LAB HEMATOLOGY METHOD 05/02/2025 6:50 PM EDT [facility] Total Nucleated Cell Count, Body fluid 180 uL LAB HEMATOLOGY METHOD 05/02/2025 6:50 PM EDT [facility] Neutrophils %, Body fluid 1 % LAB HEMATOLOGY METHOD 05/02/2025 6:50 PM EDT [facility] Lymphocytes %, Body fluid 98 % LAB HEMATOLOGY METHOD 05/02/2025 6:50 PM EDT [facility] Monocytes/Macro phages %, Body fluid 1 % LAB HEMATOLOGY METHOD 05/02/2025 6:50 PM EDT [facility] Eosinophils %, Body fluid 0 % LAB HEMATOLOGY METHOD 05/02/2025 6:50 PM EDT [facility] Lining/[place] ial Cells %, Body fluid 0 % LAB HEMATOLOGY METHOD 05/02/2025 6:50 PM EDT [facility] Neutrophils Absolute (PMN), Body fluid 2 uL LAB HEMATOLOGY METHOD 05/02/2025 6:50 PM EDT [facility] Lymphocytes Absolute, Body fluid 176 uL LAB HEMATOLOGY METHOD 05/02/2025 6:50 PM EDT [facility] Monocytes/Macro phages Absolute, Body fluid 2 uL LAB HEMATOLOGY METHOD 05/02/2025 6:50 PM EDT [facility] Eosinophils Absolute, Body fluid 0 uL LAB HEMATOLOGY METHOD 05/02/2025 6:50 PM EDT [facility] Basophils Absolute, Body fluid 0 uL LAB HEMATOLOGY METHOD 05/02/2025 6:50 PM EDT [facility] Lining/Mesothel ial Cells Absolute, Body fluid 0 uL LAB HEMATOLOGY METHOD 05/02/2025 6:50 PM EDT [facility] Basophils %, Body fluid 0 % LAB HEMATOLOGY METHOD 05/02/2025 6:50 PM EDT [facility] Body Fluid Peritoneal fluid / Unknown Non-blood Collection / Unknown 05/02/2025 11:40 AM EDT 05/02/2025 1:35 PM EDT Shaniqua Mccurdy MAT CUTTER LAB BODY FLUIDS AND STOOLS ORDERABLES NO SPECIMEN TYPE/SOURCE Final Result [facility] [address] [place] [address] documented in this encounter Visit Diagnoses Diagnosis Other ascites documented in this encounter Administered Medications Inactive Administered Medications - up to 3 most recent administrations Medication Order MAR Action Action Date Dose Rate Site albumin human 25 % infusion 37.5 g 37.5 g, Intravenous, Once as needed, 1 dose, Starting on Sarahi 05/02/25 at 0946, Until Sarahi 05/02/25 at 1147, Routine, Intraprocedure, For 5-6.9 L drained New Bag 05/02/2025 11:47 AM EDT 37.5 g lidocaine 0.9% in sodium bicarbonate (buffered lidocaine) solution solution As needed, Starting on Sarahi 05/02/25 at 1137, Until Sarahi 05/02/25 at 1137, Routine, Intraprocedure Given 05/02/2025 11:37 AM EDT 10 mL Abdominal Tissue documented in this encounter Additional Health Concerns Assessment Noted Time PHQ-9 Depression Total Score: 0 03/06/20 25 1:21 PM EDT A fall risk assessment has been complete d for the patient 04/10/2025 10:50 AM EDT A Body Mass Index follow-up plan has been documented for the patient 05/02/2025 12:13 PM EDT documented as of this encounter Care Teams Automotive Services Manager Relationship Specialty Start Date End Date Alvarez Zimmer MD [address] [place] [address] PCP - General Family Medicine 12/07/24 Lea Fernando [address] [place] [address] Campus Chaplain Endocrinology 08/29/24 Rachel Ray APRN [address] [place] [address] Nurse Practitioner Gastroenterology 09/24/24 documented as of this encounter
--- OUTSIDE RECORDS SUMMARY | 2025-05-03 13:50 | XMS_ITS | Encounter Summary ---
Author Organization Healthcare Address [address] [place] [address] Care Team Providers Care Engraver Apprentice Decorative Name Role Phone Lea Fernando Unavailable [phone] Rachel Ray AGENCY SALES REPRESENTATIVE Unavailable [phone] Alvarez Zimmer MD Primary Care Provider [phone] Reason for Visit * Reason Comments Syncope Encounter Details Date Type Department Care Team (Late st Contact Info) Description 05/03/2025 1:50 PM EDT - 05/03/2025 6:33 PM EDT Emergency [facility] Emergency Department [address] [place] [address] Jose Roberto Whitten MD [address] [place] [address] Transient alteration of awareness (Primary [...] week 01/10/2025 [facility]? Patient unable to answer 01/10/2025 Do you belong to any clubs o r organizations such as sikh groups, unions, fraternal or athletic groups, or [...] Recorded Patient Health Questionnaire-2 Score 2 04/10/2025 [facility] - Occupational [...] place to sleep or slept in a halfway (including now)? Yes 08/29/2024 PHQ-9 Answer Date [...] time in the past 12 m [place], were you homeless or living in a halfway (including now)? No 03/06/2025 CAGE ASSESSMENT Answer [...] drink first t kennedy in the morning ([employer] SALES REPRESENTATIVE) to steady your nerves or to get [...] 1 03/01/2025 ergocalciferol (Vitamin D-2) 1.25 MG (16197 UT) capsuleIndications: Vitamin D deficiency Take 1 [...] hyperglycemia, with long-term current use of insulin ([facility]) Inject 0.6 mg under the skin 1 [...] cases at a time per patient request [id number] mL 11 10/02/2024 05/07/20 25 omeprazole (PriLOSEC) [...] Complaint Patient presents with Syncope PIT NOTE Gbai Zimmer is a 64 y.o. female with [...] awareness. She does have a home health returned item clerk who also noticed this last night. This [...] level of consciousness. History provided by: Patient paraprofessional interpreter used: No Patient History Past Medical [...] kidney injury, acute liver injury, electrolyte derangement, ACS/VT, pneumonia, urinary tract infection, among others. In [...] 05/03/25 1336 PT-INR STAT Final result JOSE EDWADRS 05/03/25 1336 APTT STAT Final result JOSE EDWARDS 05/03/25 1336 XR Chest 1 View One time imaging Final result JOSE EDWARDS 05/03/25 1310 EKG now - STAT (adult) Once Preliminary result JOSE ROBERTO WHITTEN EKG personally interpreted by me demonstrates normal sinus rhythm with a rate of 73 beats per minute, left axis, no CT prolongation, narrow QRS, no QTC prolongation. No [...] daily. I have represcribed these to the [facility] and instructed the patient to pepper picker these medications at the pharmacy. At [...] schedule. I have sent these prescriptions to [email or web address]. If you have any new or worsening symptoms please return. Otherwise, please follow up with the transplant clinic as previously discussed. Disposition Discharge AVS (Filipino Snapshot) - Printed 05/03/2025 - [1] Past Medical History: Diagnosis Date ADHD (attention deficit hyperactivity disorder) Allergic Anxiety disorder, unspecified Anxiety Bleeding gums Blood in urine Cataract Chronic kidney disease Cirrhosis (CMS/HCC) Colon cancer screening 09/20/2019 Added automatically from request for surgery [id number] Coronary artery disease Depression 1995 Diabetes mellitus [...] 1979 BLADDER SURGERY N/A Bladder surgery from [facility] BREAST BIOPSY 2011 BREAST SURGERY 2010 BUNIONECTOMY Right CATARACT EXTRACTION Bilateral 2016 CHOLECYSTECTOMY 1980 ESOPHAGOGASTRODUODENOSCOPY HYSTERECTOMY N/A Hysterectomy from [facility] KNEE SURGERY Bilateral ORAL SURGERY N/A Oral surgery from [facility] OTHER SURGICAL HISTORY 2014 ROOT CANAL WISDOM TOOTH EXTRACTION [3] Family History Problem Relation Name Age of Onset Arthritis Mother Karime Singletary Diabetes Mother Karime Singletary Hypertension Mother Karime Singletary Thyroid disease Mother Karime Singletary Hyperlipidemia Mother Karime Singletary Diabetes type II [...] Appointment [facility] Interventional Radiology [address] [place] [address] 06/27/2025 10:30 AM EDT Appointment [facility] Interventional Radiology [address] [place] [address] 07/04/2025 10:30 AM EDT Appointment [facility] Interventional Radiology [address] [place] [address] 07/04/2025 11:30 AM EDT Appointment [facility] Interventional Radiology [address] [place] [address] 07/09/2025 2:40 PM EDT Office Visit Professional [facility] [address], [address] [place] [address] Ar Dominique MD [address] [facility] [place] [address] 07/11/2025 10:30 AM EDT Appointment [facility] Interventional Radiology [address] [place] [address] 07/11/2025 11:30 AM EDT Appointment [facility] Interventional Radiology [address] [place] [address] 07/18/2025 10:30 AM EDT Appointment [facility] Interventional Radiology [address] [place] [address] 07/18/2025 11:30 AM EDT Appointment [facility] Interventional Radiology [address] [place] [address] 07/25/2025 10:30 AM EDT Appointment [facility] Interventional Radiology [address] [place] [address] 07/25/2025 11:30 AM EDT Appointment [facility] Interventional Radiology [address] [place] [address] 07/31/2025 9:00 AM EDT Office Visit Psychiatric [address] [place] [address] Alvarez Zimmer MD [address] [place] [address] 08/20/2025 9:30 AM EDT Clinical Support [facility] [place] [address] [place] [address] 08/20/2025 10:30 AM EDT Social Work [facility] [place] [address] [place] [address] [place] [address] 08/20/2025 11:00 AM EDT Office Visit [facility] [place] [address] [place] [address] Jude Duque MD [address] [place] [address] 10/30/2025 1:20 PM EST Office Visit [facility] Endocrinology [address] [place] [id number] Sharif Moreno, DPNicole [address] [place] [address] documented as of this encounter Procedures Procedure [...] Whitten MD LAB URINE ORDERABLES Final Result [facility] [address] [place] [address] * Urine Subramanian Panel (05/03/2025 4:23 PM EDT) Extra Reflex urine culture not indicated 05/03/2025 6:01 PM EDT [facility] Urine Urine specimen obtained by clean catch procedure / Unknown Non-blood Collection / Unknown 05/03/2025 4:23 PM EDT 05/03/2025 4:37 PM EDT us Jose Roberto Whitten MD LAB URINE ORDERABLES Final Result Performing Organization Address City/[facility]/ZIP Co de Phone Number [facility] [address] [place] [address] * (ABNORMAL) Urinalysis with reflex microscopic (Culture NOT Included) (05/03/2025 4:23 PM EDT) Color, Urine Yellow LAB URINALYSIS - AUTOMATED METHOD 05/03/2025 4:53 PM EDT [facility] Clarity, Urine Clear LAB URINALYSIS - AUTOMATED METHOD 05/03/2025 4:53 PM EDT [facility] Spec [place], Urine 1.016 1.005 - 1.030 LAB URINALYSIS - AUTOMATED METHOD 05/03/2025 4:53 PM EDT [facility] pH, Urine 5.5 5.0 - 8.0 LAB URINALYSIS - AUTOMATED METHOD 05/03/2025 4:53 PM EDT [facility] Protein, Urine Negative Negative mg/dL LAB URINALYSIS - AUTOMATED METHOD 05/03/2025 4:53 PM EDT [facility] Glucose, Urine Negative Negative mg/dL LAB URINALYSIS - AUTOMATED METHOD 05/03/2025 4:53 PM EDT [facility] Ketones, Urine Negative Negative mg/dL LAB URINALYSIS - AUTOMATED METHOD 05/03/2025 4:53 PM EDT [facility] Blood, Urine Small(A) Negative LAB URINALYSIS - AUTOMATED METHOD 05/03/2025 4:53 PM EDT [facility] Bilirubin, Urine Negative Negative LAB URINALYSIS - AUTOMATED METHOD 05/03/2025 4:53 PM EDT [facility] Urobilinogen, Urine 1.0 0.2 to 1.0 mg/dL LAB URINALYSIS - AUTOMATED METHOD 05/03/2025 4:53 PM EDT [facility] Leukocytes, Urine Negative Negative LAB URINALYSIS - AUTOMATED METHOD 05/03/2025 4:53 PM EDT [facility] Nitrite, Urine Negative Negative LAB URINALYSIS - AUTOMATED METHOD 05/03/2025 4:53 PM EDT [facility] RBC, Urine 4 - 10(A) 0 to 3 /HPF LAB URINALYSIS - AUTOMATED METHOD 05/03/2025 4:53 PM EDT [facility] Comment:This result was prev iously suppressed from the chart. WBC, Urine 0 - 5 0 to 5 /HPF LAB URINALYSIS - AUTOMATED METHOD 05/03/2025 4:53 PM EDT [facility] Comment:This result was prev iously suppressed from the chart. Squamous Epithelial Cells 0 - 2 0 to 5 /HPF LAB URINALYSIS - AUTOMATED METHOD 05/03/2025 4:53 PM EDT [facility] Comment:This result was prev iously suppressed from the chart. Hyaline Casts 0 - 2 0 to 5 /LPF LAB URINALYSIS - AUTOMATED METHOD 05/03/2025 4:53 PM EDT [facility] Comment:This result was prev iously suppressed from the chart. Bacteria, Urine Negative Negative LAB URINALYSIS - AUTOMATED METHOD 05/03/2025 4:53 PM EDT [facility] Comment:This result was prev iously suppressed from the chart. Urine Urine specimen obtained by clean catch procedure / Unknown Non-blood Collection / Unknown 05/03/2025 4:23 PM EDT 05/03/2025 4:25 PM EDT us Jose Roberto Whitten MD LAB URINE ORDERABLES Final Result [facility] [address] [place] [address] * (ABNORMAL) Troponin T, High Sensitivity, 2 Hour, Plasma (05/03/2025 4:23 PM EDT) Troponin T, High Sensitivity, 2 Hour 31(H) <14 ng/L 05/03/2025 4:47 PM EDT [facility] Troponin Delta 1 <10 ng/L 05/03/2025 4:47 PM EDT [facility] Troponin Delta Interpretation Not Significant 05/03/2025 4:47 PM EDT [facility] Comment:Not Significant. No acute change in troponin observed between the baseline and 2 hour samples. Blood Venous blood specimen / Unknown Venipuncture / Unknown 05/03/2025 4:23 PM EDT 05/03/2025 4:25 PM EDT us Jose Edwards MD LAB BLOOD ORDERABLES Fi nal Result [facility] [address] [place] [address] * XR Chest 1 View (05/03/2025 2:32 [...] - 51 umol/L 05/03/2025 3:08 PM EDT [facility] Blood Venous blood specimen / Unknown Venipuncture / Unknown 05/03/2025 1:50 PM EDT 05/03/2025 2:54 PM EDT Jose Edwards MD LAB BLOOD ORDERABLES Fi nal Result Performing Organization Address City/[facility]/ZIP Co de Phone Number [facility] [address] [place] [address] * APTT (05/03/2025 1:50 PM EDT) aPTT 35 25 - 35 sec 05/03/2025 2:09 PM EDT [facility] Blood Venous blood specimen / Unknown Venipuncture / Unknown 05/03/2025 1:50 PM EDT 05/03/2025 1:56 PM EDT Jose Edwards MD LAB BLOOD ORDERABLES Fi nal Result Performing Organization Address [facility]/ZIP Co de Phone Number [facility] [address] [place] [address] * (ABNORMAL) PT-INR (05/03/2025 1:50 PM EDT) Pathologist [facility] Prothrombin Time 20.7(H) 12.0 - 14.3 sec 05/03/2025 2:08 PM EDT [facility] INR 1.8(H) 0.9 - 1.1 05/03/2025 2:08 PM EDT [facility] Blood Venous blood specimen / Unknown Venipuncture / Unknown 05/03/2025 1:50 PM EDT 05/03/2025 1:56 PM EDT Narrative [facility] - 05/03/2025 2:08 PM EDT OPTIMAL INR RANGES FOR PATIENT ON ORAL ANTICOAGULANT THERAPY Prevention of venous thromboembolism INR 2.0 to 3.0 In patients with heart disease: Atrial fibrillation INR 2.0 to 3.0 Valvular heart disease INR 2.0 to 3.0 Tissue heart valves INR 2.0 to 3.0 Mechanical prosthetic valves INR 2.5 to 3.5 Prevention of recurrent VT INR 2.5 to 3.5 us Jose Edwards MD LAB BLOOD ORDERABLES Fi nal Result [facility] [address] [place] [address] * (ABNORMAL) Troponin now and 120 min (05/03/2025 1:50 PM EDT) [facility] Troponin T, High Sensitivity, 0 Hour 30(H) <14 ng/L 05/03/2025 2:20 PM EDT [facility] Blood Venous blood specimen / Unknown Venipuncture / Unknown 05/03/2025 1:50 PM EDT 05/03/2025 1:57 PM EDT us Jose Edwards MD LAB BLOOD ORDERABLES Fi nal Result [facility] [address] [place] [address] * (ABNORMAL) CBC w/diff (05/03/2025 1:50 PM EDT) [facility] WBC Count 3.43(L) 3.70 - 10.30 10*3/uL LAB HEMATOLOGY METHOD 05/03/2025 2:00 PM EDT [facility] RBC Count 3.50(L) 3.90 - 5.20 10*6/uL LAB HEMATOLOGY METHOD 05/03/2025 2:00 PM EDT [facility] HGB 10.8(L) 11.2 - 15.7 g/dL LAB HEMATOLOGY METHOD 05/03/2025 2:00 PM EDT [facility] HCT 31.6(L) 34.0 - 45.0 % LAB HEMATOLOGY METHOD 05/03/2025 2:00 PM EDT [facility] Platelet Count 56(L) 155 - 369 10*3/uL LAB HEMATOLOGY METHOD 05/03/2025 2:00 PM EDT [facility] MCV 90 79 - 98 fL LAB HEMATOLOGY METHOD 05/03/2025 2:00 PM EDT [facility] MCH 30.9 26.0 - 32.0 pg LAB HEMATOLOGY METHOD 05/03/2025 2:00 PM EDT [facility] MCHC 34.2 30.7 - 35.5 g/dL LAB HEMATOLOGY METHOD 05/03/2025 2:00 PM EDT [facility] RDW 17.1(H) 11.5 - 14.5 % LAB HEMATOLOGY METHOD 05/03/2025 2:00 PM EDT [facility] MPV 10.4 8.8 - 12.5 fL LAB HEMATOLOGY METHOD 05/03/2025 2:00 PM EDT [facility] nRBC 0.0 <=0.0 per 100 WBCs LAB HEMATOLOGY METHOD 05/03/2025 2:00 PM EDT [facility] Differential Type Automated LAB HEMATOLOGY METHOD 05/03/2025 2:00 PM EDT [facility] Neutrophils % 68 % LAB HEMATOLOGY METHOD 05/03/2025 2:00 PM EDT [facility] Lymphocytes % 16 % LAB HEMATOLOGY METHOD 05/03/2025 2:00 PM EDT [facility] Monocytes % 12 % LAB HEMATOLOGY METHOD 05/03/2025 2:00 PM EDT [facility] Eosinophils % 3 % LAB HEMATOLOGY METHOD 05/03/2025 2:00 PM EDT [facility] Basophils % 1 % LAB HEMATOLOGY METHOD 05/03/2025 2:00 PM EDT [facility] Immature Granulocytes % 0 % LAB HEMATOLOGY METHOD 05/03/2025 2:00 PM EDT [facility] Neutrophils Absolute 2.35 1.60 - 6.10 10*3/uL LAB HEMATOLOGY METHOD 05/03/2025 2:00 PM EDT [facility] Lymphocytes Absolute 0.55(L) 1.20 - 3.90 10*3/uL LAB HEMATOLOGY METHOD 05/03/2025 2:00 PM EDT [facility] Monocytes Absolute 0.41 0.30 - 0.90 10*3/uL LAB HEMATOLOGY METHOD 05/03/2025 2:00 PM EDT [facility] Eosinophils Absolute 0.09 0.00 - 0.50 10*3/uL LAB HEMATOLOGY METHOD 05/03/2025 2:00 PM EDT [facility] Basophils Absolute 0.02 0.00 - 0.10 10*3/uL LAB HEMATOLOGY METHOD 05/03/2025 2:00 PM EDT [facility] Immature Granulocytes Absolute 0.01 0.00 - 0.06 10*3/uL LAB HEMATOLOGY METHOD 05/03/2025 2:00 PM EDT [facility] Blood Venous blood specimen / Unknown Venipuncture / Unknown 05/03/2025 1:50 PM EDT 05/03/2025 1:56 PM EDT Narrative [facility] - 05/03/2025 2:00 PM EDT Therapeutic decision making should be based on absolute values, rather than percentages. us Jose Edwards MD LAB BLOOD ORDERABLES Fi nal Result [facility] [address] [place] [address] * (ABNORMAL) Blood gas panel, venous (05/03/2025 1:50 PM EDT) pH, Venous 7.41 7.32 - 7.43 LAB HEMATOLOGY METHOD 05/03/2025 1:58 PM EDT [facility] pCO2, Venous 42 37 - 52 mmHg LAB HEMATOLOGY METHOD 05/03/2025 1:58 PM EDT [facility] pO2, Venous 21(L) 25 - 40 mmHg LAB HEMATOLOGY METHOD 05/03/2025 1:58 PM EDT [facility] SO2, Measured, Venous 25(L) 65 - 80 % LAB HEMATOLOGY METHOD 05/03/2025 1:58 PM EDT [facility] Base Excess, Venous 2.0 -2.0 - 3.0 mmol/L LAB HEMATOLOGY METHOD 05/03/2025 1:58 PM EDT [facility] Bicarbonate, Calculated, Venous 27(H) 22 - 26 mmol/L LAB HEMATOLOGY METHOD 05/03/2025 1:58 PM EDT [facility] Hematocrit, Whole Blood 37.5 34.0 - 45.0 % LAB HEMATOLOGY METHOD 05/03/2025 1:58 PM EDT [facility] Sodium, Whole Blood 141 136 - 145 mmol/L LAB HEMATOLOGY METHOD 05/03/2025 1:58 PM EDT [facility] Potassium, Whole Blood 3.8 3.6 - 4.9 mmol/L LAB HEMATOLOGY METHOD 05/03/2025 1:58 PM EDT [facility] Chloride, Whole Blood 107 97 - 107 mmol/L LAB HEMATOLOGY METHOD 05/03/2025 1:58 PM EDT [facility] Glucose, Whole Blood 170(H) 74 - 99 mg/dL LAB HEMATOLOGY METHOD 05/03/2025 1:58 PM EDT [facility] Lactate, Venous, Whole Blood 1.7 0.5 - 2.2 mmol/L LAB HEMATOLOGY METHOD 05/03/2025 1:58 PM EDT [facility] Ionized Calcium, Whole Blood 4.6 4.6 - 5.1 mg/dL LAB HEMATOLOGY METHOD 05/03/2025 1:58 PM EDT [facility] Blood Venous blood specimen / Unknown Venipuncture / Unknown 05/03/2025 1:50 PM EDT 05/03/2025 1:56 PM EDT us Jose Edwards MD LAB BLOOD ORDERABLES Fi nal Result [facility] [address] [place] [address] * (ABNORMAL) CMP (05/03/2025 1:50 PM EDT) Glucose, Plasma 172(H) 74 - 99 mg/dL 05/03/2025 2:20 PM EDT [facility] BUN, Plasma 20 8 - 23 mg/dL 05/03/2025 2:20 PM EDT [facility] Creatinine, Plasma 1.32(H) 0.60 - 1.10 mg/dL 05/03/2025 2:20 PM EDT [facility] BUN/Creatinine Ratio 15 05/03/2025 2:20 PM EDT [facility] Sodium, Plasma 140 136 - 145 mmol/L 05/03/2025 2:20 PM EDT [facility] Potassium, Plasma 3.9 3.6 - 4.9 mmol/L 05/03/2025 2:20 PM EDT [facility] Chloride, Plasma 107 97 - 107 mmol/L 05/03/2025 2:20 PM EDT [facility] CO2, Plasma 22 22 - 29 mmol/L 05/03/2025 2:20 PM EDT [facility] Anion Gap 11 6 - 16 mmol/L 05/03/2025 2:20 PM EDT [facility] Total Calcium, Plasma 8.7(L) 8.9 - 10.2 mg/dL 05/03/2025 2:20 PM EDT [facility] Total Protein 7.1 6.3 - 7.9 g/dL 05/03/2025 2:20 PM EDT [facility] Albumin, Plasma 3.5 3.5 - 5.2 g/dL 05/03/2025 2:20 PM EDT [facility] AST, Plasma 36(H) 10 - 35 U/L 05/03/2025 2:20 PM EDT [facility] ALT, Plasma 14 10 - 35 U/L 05/03/2025 2:20 PM EDT [facility] Alkaline Phosphatase, Plasma 205(H) 46 - 142 U/L 05/03/2025 2:20 PM EDT [facility] Total Bilirubin, Plasma 2.6(H) 0.2 - 1.1 mg/dL 05/03/2025 2:20 PM EDT [facility] eGFRcr 45.7 mL/min/1.7 3m*2 05/03/2025 2:20 PM EDT [facility] Comment:Reported eGFRcr in m L/min/1.73m2 is based the CKD-EPI 2020 equation that does not use a race coefficient. Blood Venous blood specimen / Unknown Venipuncture / Unknown 05/03/2025 1:50 PM EDT 05/03/2025 1:57 PM EDT us Jose Edwards MD LAB BLOOD ORDERABLES Fi nal Result Performing Organization Address City/[facility] Co de Phone Number [facility] [address] [place] [address] * EKG now - STAT (adult) (05/03/2025 1:14 PM EDT) EKG DIAGNOSIS CLASS Abnormal MUSE ECG Ventricular Rate 73 BPM MUSE ECG Atrial Rate [address] Interval 116 ms MUSE ECG QRSD Interval 86 ms MUSE ECG QT Interval 384 ms MUSE ECG QTC Interval 423 ms MUSE ECG P [place] 40 degrees MUSE ECG R [place] -33 degrees MUSE ECG T Wave [place] 17 degrees MUSE ECG Diagnosis Sinus rhythm with premature atrial complexes MUSE ECG Diagnosis Left axis deviation MUSE ECG Diagnosis Possible Anterior infarct , age undetermined MUSE ECG Diagnosis MUSE ECG Diagnosis MUSE ECG Diagnosis Confirmed by Cecelia Leal ([id number]) on 05/03/2025 10:43:38 PM MUSE ECG 05/03/2025 1:14 PM EDT 05/03/2025 10:43 PM EDT us Jose Roberto Whitten MD ECG ORDERABLES Final Resul t Performing Organization Address City/[facility] Co de Phone Number MUSE ECG documented [...] documented as of this encounter Care Teams Engraver Apprentice Decorative Relationship Specialty Start Date End Date Alvaerz Zimmer MD [address] [place] [phone] PCP - General Family Medicine 12/07/24 Lea Fernando [address] [place] [address] Litigation Examiner Endocrinology 08/29/24 Rachel Ray, ADRI [address] [place] [address] Nurse Practitioner Gastroenterology 09/24/24 documented as of this encounter
--- OUTSIDE RECORDS SUMMARY | 2025-05-07 10:40 | XMS_ITS | Encounter Summary ---
Author Organization Healthcare Address [address] 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 Patient unable to answer 01/10/2025 Do you belong to any clubs o r organizations such as yazidism groups, unions, fraternal or athletic groups, or [...] Answer Date Recorded Patient Health Questionnaire-2 Score 1 05/07/2025 [facility] - Occupational [...] place to sleep or slept in a [place] (including now)? Yes 08/29/2024 PHQ-9 Answer Date [...] any time in the past 12 m [facility], were you homeless or living in a [place] facility (including now)? No 03/06/2025 CAGE ASSESSMENT Answer [...] first t kennedy in the morning (EYE-CLINICAL DOCUMENT IMPROVEMENT EDUCATOR) to steady your nerves or to get rid of a hangover? 0 10/22/2024 CAGE Questionnaire Score 0 024 Utilities Answer Date Recorded In the past 12 months has e [employer], gas, oil, or water [employer] threatened to shut off services in your [...] Sign Reading Time Taken Comments Blood Pressure 111/65 05/07/2025 9:05 AM EDT Pulse 66 05/07/2025 9:05 AM EDT Temperature 36.9 C (98.4 F) 05/07/2025 9:05 AM EDT Respiratory Rate 18 05/07/2025 9:05 AM EDT Oxygen Saturation 96% 05/07/2025 9:05 AM EDT Inhaled Oxygen Concentration - - Weight 79.1 kg (174 lb 6.1 oz) 05/07/2025 9:05 A M EDT Height 165.1 cm (5' 5 ) 05/07/2025 9:05 AM EDT Body Mass Index 29.02 05/07/2025 9:05 AM EDT documented in this encounter Functional Status * Over the past 2 weeks, how often have you been bothered by any of the following problems? Question Answer Date of Assessment Author Little interest or pleasure in doing things Not at all 05/07/2025 9:08 AM EDT Tamera Carter Feeling down, depressed, or hopeless Several days 05/07/2025 9:08 AM EDT Tamera Carter Patient Health Questionnaire -2 Score 1 05/07/2025 9:08 AM EDT Tamera Carter * How difficult have these problems made it for you to do your work, take care of things at home, or get along with other people? Answer Date of Assessment Author Somewhat difficult 05/07/2025 9:08 AM EDT Tamera Carter documented as of this encounter Miscellaneous Notes * Progress Notes - Octavia Herrera PA - 05/07/2025 10:40 AM EDT Images from the original note were not included. Transplant Hepatology Note History of Presenting Illness Gabi Zimmer is a 64 y.o. female with past medical history of ADHD, Anxiety disorder , Depression, Obesity, obstructive sleep apnea, Type 2 diabetes mellitus, asthma, osteoarthritis, MASH cirrhosis decompensated with ascites, HE came to the clinic for follow up. Listed for OLT, pending SLK depending on kidney function Has had an OPEN CCY MELD 24 Last seen 03/05/25 Thoracentesis 04/18, 04/11, 04/04, 03/28 Paracentesis: 04/25, 05/02 with 4.5 liters removed ED on 05/03 - Pt c/o intermittent syncopal episodes with onset beginning last night. Pt states she felt sleepy but had difficulty falling asleep. Pt c/o SOA. She reports CPAP last night without relief. Pt c/o neck pain. Pt states she is on liver transplant list. Pt reports previous high ammonia levels. Pt states she has not been taking lactulose She continues to require weekly paracentesis and at times thoracentesis. On furosemide 20 mg and spironolactone 50 mg daily which she reports taking at night. She isn't sure if they're helpful or not. No overt confusion recently No melena, hematemesis, coffee ground emesis. Reports some blood in her urine on Tuesday when she was at ER but none since Over the last couple of months will have presyncopal episodes 1-2 x a week. Will feel like she is in an alternate universe, Check BP and BS and she repots they're fine and she reports it's not consistently related to not eating. Does have issues with ear on left side. She has started allergy pill and nasal sprays Continues to have nausea and vomiting at times. Concerns with caregiver today. Patient very tearful and reports her son told her he will not be hercaregiver anymore. He reports that he found out she wasn't taking her lactulose appropriately and that he feels she is not taking this seriously. After last visit, she had moved into her own trailer in [place] as she was staying with her sister but she felt they were very overbearing and trying tocontrol her every move. Son has been trying not to micromanage her but feels frustrated she isn't taking better care of herself. Son lives in [place] She was seen 11/07/[address] Harris for evaluation of possible kidney transplant. Patient did notmeet criteria for dual listing of liver kidney at that time. He recommended monitoring creatinine and cystatin C weekly for a few weeks to see where her creatinine would stabilize. Prior History: Was seen by Rachel Ray in Hepatology clinic on 09/13/2024. As per chart review she was diagnosed with cirrhosis in 2022. Has had fatty liver since 1996. Had admission to [facility] for hepatic encephalopathy in 01/2024. Was on lasix 40 mg BID and spironolactone 100 mg BID when last seen Ultrasound 09/26/2024 with evidence of cirrhosis no lesions seen. EGD 03/25/2024 with evidence of PHG, gastritis, grade 1-2 varices. Has not been on beta bam due to concern for hypotension. Reported that she had been getting paracentesis multiple times that started over the past 3 months.Now gets paracentesis every week, about 7-8L removed every time. Has been compliant with furosemide 40 mg BID and spironolactone 100 mg BID. Has been on the same dose for about 2 months Reported that she was in the hospital for high ammonia levels in 01/2024. Has been on lactulose and rifaximin since then. Her encephalopathy has been under control since then Past Medical History As per HPI Past Surgical History Open Cholecystectomy for gallstones with appendectomy 1979 Hysterectomy Bladder surgeries for overactive bladder Bilateral meniscal tears Family History Son- Fatty liver Uncle- Fatty liver Social History Alcohol: Quit 2015, was social drinker Tobacco: Denied Illicit drug use: Denied Review of Systems A 14 point review of systems negative except for HPI Outpatient Medications Current Outpatient Medications Medication Instructions azelastine (Astelin) 0.1 % nasal spray 1 spray, Each Nostril, 2 times daily, Use in each nostril asdirected B-D ULTRAFINE III SHORT PEN 31G X 8 MM misc Blood Glucose Monitoring Suppl (Blood Glucose Monitor System) w/Device kit Test blood sugars twice a day. Dx E11.65 calcitriol (ROCALTROL) 0.25 mcg, Oral, Daily capsaicin (Zostrix) 0.025 % cream Apply thin layer to feet nightly WITH GLOVES cetirizine (ZYRTEC) 10 mg, Oral, Daily cholecalciferol (VITAMIN D-3) 1,000 Units, Oral, Daily ciprofloxacin (CIPRO) 500 mg, Oral, Daily ergocalciferol (VITAMIN D-2) 50,000 Units, Oral, Weekly fluticasone (Flonase) 50 MCG/ACT nasal spray 1 spray, Each Nostril, Daily, Shake gently. Before first use, prime pump. After use, clean tip and replace cap. glucose blood test strip Use to test blood sugars twice a day E11.65 insulin aspart (NovoLOG Flexpen) 100 UNIT/ML injection Inject 24 units before meals, 12 units before small meals/snacks plus 4 units for every 50 > 150. MDD: 100 units Insulin Pen Needle 31G X 6 MM misc 1 each, Does not apply, Daily, Use to administer Tymlos daily lactulose (CHRONULAC) 20 g, Oral, 3 times daily lactulose (CHRONULAC) 20 g, Oral, 3 times daily Lancets misc Use to test blood sugars twice a day E11.65 Lantus SoloStar 100 UNIT/ML injection pen Inject 52 units every morning. Titrate as directed. MDD: 60 units Magnesium Oxide, Laxative, 500 MG tablet 1 tablet, Oral, Daily midodrine (PROAMATINE) 20 mg, Oral, 3 times daily Multiple Vitamins-Minerals (COMPLETE WOMENS PO) 1 tablet, Daily omeprazole (PRILOSEC) 40 mg, Oral, 2 times daily, Do not crush or chew. ondansetron ODT (ZOFRAN-ODT) 8 mg, Oral, Every 8 hours PRN pen needle, diabetic (BD Pen Needle Micro U/F) 32G X 6 MM misc Use to inject insulin 4 times per day. prochlorperazine (COMPAZINE) 5 mg, Oral, Every 8 hours PRN rifAXIMin (XIFAXAN) 550 mg, Oral, 2 times daily rifAXIMin (XIFAXAN) 550 mg, Oral, 2 times daily rosuvastatin (CRESTOR) 20 mg, Nightly Tums E-X 750 mg, Oral, Daily Tymlos 80 mcg, Subcutaneous, Daily [place] 0.6 mg, Subcutaneous, Once as needed zinc sulfate (ZINCATE) 220 mg, Oral, 2 times daily Allergies No Known Allergies Vaccinations Immunization History Administered Date(s) Administered Influenza, Unspecified 09/01/2015, 09/10/2022 Influenza, injectable, quadrivalent 08/10/2016, 08/23/2018, 09/05/2019 Influenza, injectable, quadrivalent, preservative free 08/18/2017, 02/11/2021, 10/01/2021 Influenza, seasonal, injectable 09/01/2015 Pneumococcal Polysaccharide PPV23 08/23/2018 Tdap 07/17/2019 Zoster, Recombinant 07/17/2019, 10/30/2019 Vital Signs Visit Vitals BP 111/65 Pulse 66 Temp 36.9 ??C (98.4 ??F) Resp 18 Ht 1.651 m (5' 5 ) Wt 79.1 kg (174 lb 6.1 oz) SpO2 96% BMI 29.02 kg/m?? OB Status Postmenopausal Smoking Status Never BSA 1.9 m?? Physical Exam General - well nourished and developed and in no acute distress. Appears stated age. HEENT - no scleral icterus, EOMI, atraumatic, normocephalic; ears located midway on head with normal appearance, nose midline without discharge. Cardiovascular - RRR without murmurs, rubs, or gallops; radial pulses 2+ bilaterally; +1 piting LE edema bilaterally present Respiratory - respiratory rate even and non-labored; lungs clear to auscultation in all lung marquez Gastrointestinal - bowel sounds present; soft, non-tender,+distended; + ascites noted; no hernias present; liver and spleen not felt Dermatologic - no jaundice, spider angiomata, or palmar erythema. Warm and dry to palpation. No clubbing MSK - no deformities noted; no edema or erythema of joints visible, normal gait and station Neuro - no asterixis present, oriented to time and place. Psychiatric - pleasant, calm, cooperative. Labs MELD 3.0: 24 at 05/07/2025 8:58 AM MELD-Na: 22 at 05/07/2025 8:58 AM Calculated from: Serum Creatinine: 1.83 mg/dL at 05/07/2025 8:58 AM Serum Sodium: 139 mmol/L (Using max of 137 mmol/L) at 05/07/2025 8:58 AM Total Bilirubin: 2.7 mg/dL at 05/07/2025 8:58 AM Serum Albumin: 3.1 g/dL at 05/07/2025 8:58 AM INR(ratio): 1.8 at 05/07/2025 8:58 AM Age at listin years Sex: Female at 05/07/2025 8:58 AM AFP Lab Results Component Value Date/Time AFP 4.0 05/07/2025 0858 AFP <2.3 10/22/2024 1144 HgB Lab Results Component Value Date/Time HGB 10.6 (L) 05/07/2025 0858 HGB 10.8 (L) 05/03/2025 1350 WBC Lab Results Component Value Date/Time WBC 4.14 05/07/2025 0858 WBC 3.43 (L) 05/03/2025 1350 A1c Lab Results Component Value Date/Time HGBA1C 6.2 (H) 01/08/2025 1444 HGBA1C 7.4 01/11/2024 1038 HGBA1C 10.8 (A) 11/24/2021 0946 Lab Results Component Value Date/Time AST 43 (H) 05/07/2025 0858 ALT 17 05/07/2025 0858 ALKPHOS 177 (H) 05/07/2025 0858 BILITOT 2.7 (H) 05/07/2025 0858 INR 1.8 (H) 05/07/2025 0858 ALBUMIN 3.1 (L) 05/07/2025 0858 CREATININE 1.83 (H) 05/07/2025 0858 AFP 4.0 05/07/2025 0858 Lab Results Component Value Date/Time HGB 10.6 (L) 05/07/2025 0858 WBC 4.14 05/07/2025 0858 PLT 62 (L) 05/07/2025 0858 Hepatitis Serologies Lab Results Component Value Date/Time HEPBSAG Negative 01/10/2025 0307 ZO Non-Reactive 10/28/2022 0843 HECG Negative 10/22/2024 1144 HAG Negative 01/10/2025 0307 Work-up Labs Lab Results Component Value Date/Time FERRITIN 190 (H) 02/26/2025 0915 TIBC 116 (L) 10/22/2024 0019 AAT 137 10/22/2024 1144 CERULOPLSM 20 10/22/2024 1144 HGBA1C 6.2 (H) 01/08/2025 1444 HGBA1C 7.4 01/11/2024 1038 HGBA1C 10.8 (A) 11/24/2021 0946 CHOL 70 10/22/2024 0019 LDLCALC 32 10/22/2024 0019 LDLCALC 100 04/30/2016 0920 HDL 25 (L) 10/22/2024 0019 TRIG 49 10/22/2024 0019 TSH 2.03 10/22/2024 0019 Assessment and Plan Problem List Items Addressed This Visit Physical deconditioning Hepatic encephalopathy (CMS/HCC) Secondary esophageal varices without bleeding (CMS/HCC) (Chronic) 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 female with past medical history of ADHD, Anxiety disorder , Depression, Obesity, obstructive sleep apnea, Type 2 diabetes mellitus, asthma, osteoarthritis, MASH cirrhosis decompensated with ascites, HE came to the clinic for follow up. Listed for OLT, pending SLK depending on kidney function Has had an OPEN CCY MELD 24 # Decompensated MASH cirrhosis Complications of liver disease include: Ascites, Hepatic encephalopathy History of: DM, HLD, Obesity Chemical dependency: None --discussed MELD score, liver allocation, listing process -now listed for OLT, however will need ab inactivated due to caregiver concerns (see HPI - patient son considering his role in his care right now) --see below re: neurocog assessment --avoid NSAIDS, can take acetaminophen but not to exceed 2000 mg a day. --will be reviewed in our upcoming committee --RTC in 1 month to see SW and reassess caregiver situation # Ascites # Hepatic hydrothorax Thoracentesis 04/18, 04/11, 04/04, 03/28 LVP: Currently getting LVP every 1-2 weeks SBP: Yes during last admission and is currently on Cipro SBP secondary prophylaxis. Continues to take Cipro Diuretics - currently on furosemide 20 mg daily and furosemide 50 mg daily --continue LVP PRN, thora PRN --stop diuretics given increased Cr --repeat labs in 1 week (with next paracentesis) --avoid ROSSI-I and ARBs as well as CCB # HRS CARLOTTA # CKD stage II - III Per chart review, her serum creatinine was 0.72 on 11/30/2023 and 0.85 on 06/15/2024. She was admitted to the hospital with creatinine of 2.97; Creatinine was 1.73 at time of discharge Creatinine today 1.12 with eGFR of 55.7 seen by transplant nephrology 11/07/2024 - not a candidate for dual listing at this time - continueto monitor creatinine weekly. Could consider dual listing if eGFR remains less than or equal to 25mL/min. --Continue to monitor for need for SLK but doesn't need combined at this time # Hepatic Encephalopathy: On Lactulose and Xifaxan at home Admitted 01/08 - 01/14/25 - presented with acute encephalopathy, intubated for airway protection, admitted to MICU. Extubated and downgraded to medical floors on 01/11. --Continue lactulose to titrate for 2-3 loose bowel movements --Continue Rifaximin 550 mg BID --see below re: anxiety/depression/need for neurocog # Esophageal varices screening- # Esophageal ulcer Last EGD 03/25/2024 with evidence of PHG, gastritis, grade 1-2 varices. EGD 01/09/25 - Multiple small, medium and tortuous varices in the lower third of the esophagus; no bleeding was observed; placed 1 band on the medium varix successfully, resulting in complete eradication. Severe, diffuse and mosaic portal hypertensive gastropathy in the cardia, fundus of the stomach, body of the stomach, incisura and antrum; no bleeding was observed EGD 02/05/25 - two medium varices in lower third of esophagus with 2 bands placed; single ulcer in lower third of esophagus with clean base, sara III --hold off starting betablocker given elevated creatinine and diuretic intractable ascites. --Educated on S/S of GI bleed and advised to go to ER if any occurs. --repeat EGD in 3-6 months --discussed with patient need for PPI given her ulcer and abdominal symptoms - protonix doesn't seem effective for her, will start omeprazole 20 mg BID x2 months # HCC surveillance Last imagin10/22/24 US Liver - Cirrhotic. Allowing for somewhat limited visualization due to liver morphology, no suspicious focal liver lesions are detected. CT 05/07/25 - LR negative Lab Results Component Value Date AFP 4.0 05/07/2025 --continue q6 monthly HCC surveillance with imaging and AFP, next due in April # Nausea, Abd pain --as above, ulcer, started omeprazole --seems related to volume of ascites as well (improves after LVP) --transition to compazine # Anxiety/depression # Need for neurocog eval Son reports she has been easily irritated and cries easily this past week. She reports living with sister and mom and sister recently had surgery and mom has been helping both of them. She does get frustrated that she never has any privacy. She speaks to a counselor via but her mom is able to listen in Was taken off trazodone, bupropion, and zoloft as well as namenda and she feels like she is doing better mentally since then. She reports being surprised that she developed recent episode of confusion - she thinks it was a bad batch of lactulose that was causing a lot of nausea, she was using a lotof tums. Everytime she took it it killed her stomach I instructed her to stop nameJHONNY hilliard today Last committee preview note 01/14/25 - SW recommended neurocog eval Neurocog eval could be useful but shouldn't limit listing - was seen on 02/02/25 # Moderate protein-calorie malnutrition -- Counseled on the importance of increasing protein intake, advised to get 1.2-1.5 gram/kg a day. Advsied to take late night snack/shake and upon waking up and several times a day - drinks 3 premier protein shakes/day # DM Reports doing overall okay since discharge. Trying to control her BS, has been reading as high onher monitor and reached out to her associate creative director and they have been adjusting. # Osteoporosis - DEXA scan done today showed osteoporosis Health Maintenance: Immune to Hep A, nonimmune to hep B. Needs Hep B vaccine but could not be given in transplant clinic due to her insurance. [facility] She reports that she had a colonoscopy done a year ago at [facility] in [place]. Colonoscopy 09/2019- report reviewed and showed left sided diverticulosis, internal hemorrhoids. Five colon polyps that were 3-13 mm in size. Flat polypoid area in the cecum. Status post biopsies andmarking with Suri ink. RTC 4 weeks A total of 71 minutes was spent on this patient encounter - educating patient, interpreting and discussing labs and imaging, impressions, prognosis, risks/benefits of current treatment options, risk factor reduction, instructions for management, and documentation. Care coordination provided included review and summary of medical records and additional diagnostic research, phone collaboration and consult with peers. documented in this encounter Plan of Treatment Upcoming Encounters Date Type Department Care Team (Late st Contact Info) Description 06/27/2025 9:30 AM EDT Appointment [facility] [address] [place] [address] 06/27/2025 10:30 AM EDT Appointment [facility] [address] [place] [address] 07/04/2025 10:30 AM EDT Appointment [facility] [address] [place] [address] 07/04/2025 11:30 AM EDT Appointment [facility] [address] [place] [address] 07/09/2025 2:40 PM EDT Office Visit [facility] [address] , [address] [place] [address] Ar Dominique MD [address] [place] [address] 07/11/2025 10:30 AM EDT Appointment [facility] [address] [place] [address] 07/11/2025 11:30 AM EDT Appointment [facility] [address] [place], [place] [address] 07/18/2025 10:30 AM EDT Appointment [facility] [address] [place], [place] [address] 07/18/2025 11:30 AM EDT Appointment [facility] [address] [place], [place] [address] 07/25/2025 10:30 AM EDT Appointment [facility] [address] [place], [place] [address] 07/25/2025 11:30 AM EDT Appointment [facility] [address] [place] [address] 07/31/2025 9:00 AM EDT Office Visit [address] [address] Alvarez Zimmer MD [address] [place] [address] 08/20/2025 9:30 AM EDT Clinical Support [facility] [place] [address] [place] [address] 08/20/2025 10:30 AM EDT Social Work [facility] [address] [place] [address] [address] [place], [place] [id number] 08/20/2025 11:00 AM EDT Office Visit [facility] [place] [address] [place] [address] Jude Duque MD [address] [place] [address] 10/30/2025 1:20 PM EST Office Visit [facility]ocr[facility] [address] [place] [phone] Sharif Moreno, DPM [address] [place] [address] documented as of this encounter Visit Diagnoses Diagnosis 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) (CMS/HCC)- Primary Hepatic encephalopathy (CMS/HCC) Hepatic encephalopathy Secondary esophageal varices without bleeding (CMS/HCC) Moderate protein-calorie malnutrition (CMS/HCC) Other ascites Physical deconditioning Muscular wasting and disuse atrophy, not elsewhere classified documented in this encounter Additional Health Concerns Assessment Noted Time PHQ-9 Depression Total Score: 0 03/06/20 1:21 PM EDT A fall risk assessment has been complete d for the patient 05/07/2025 9:12 AM EDT A Body Mass Index follow-up plan has been documented for the patient 05/07/2025 11:34 AM EDT documented as of this encounter Care Teams Clay Dry Press Mixer Operator Relationship Specialty Start Date End Date Alvarez Zimmer MD [address] [place] [phone] PCP - General Family Medicine 12/07/24 Lea Fernando [address] [place] [id number] Pattern Ruler Endocrinology 08/29/24 Rachel Ray APRN [address] [place] [address] Nurse Practitioner Gastroenterology 09/24/24 documented as of this encounter
--- OUTSIDE RECORDS SUMMARY | 2025-05-07 12:09 | XMS_ITS | Encounter Summary ---
Author Organization [facility] Address [address] [place] [address] Care Team Providers Care Instrument Lens Generator Name Role Phone Lea Fernando Unavailable [phone] Rachel Ray TERRITORY SERVICE REPRESENTATIVE Unavailable [phone] Alvarze Zimmer MD Primary Care Provider [phone] Reason for Referral * Imaging (Routine) - Closed Specialty Diagnoses / Procedures Referred By Contac t Referred To Contact Radiology Diagnoses End-stage liver disease (CMS/HCC) Procedures CT Abdomen Pelvis w IV Contrast CT Liver Gerson Arora MD [address] [address] Phone: tel: fax: Referral ID Status Reason Start Date Expiration Date Visits Re quested Visits Authorized [id number] Closed 03/12/2025 09/11/2026 1 1 Reason for Visit * Imaging (Routine) - Closed Specialty Diagnoses / Procedures Referred By Contac t Referred To Contact Radiology Diagnoses End-stage liver disease (CMS/HCC) Procedures CT Abdomen Pelvis w IV Contrast CT Liver Gerson Arora MD [address] [place] [phone] Phone: tel: fax: Referral ID Status Reason Start Date Expiration Date Visits Re quested Visits Authorized [id number] Closed 03/12/2025 09/11/2026 1 1 Encounter Details Date Type Department Care Team (Latest Contact Info) Description 05/07/2025 12:09 PM EDT - 05/07/2025 11:59 PM EDT Hospital Encounter [facility] [address] [place] [address] End-stage liver disease (CMS/HCC) Discharge Disposition: Home [...] week 01/10/2025 How often do you attend [facility] or worship services? Patient unable to answer 01/10/2025 Do you belong to any clubs o r organizations such as latter day groups, unions, fraternal or athletic groups, or [...] Recorded Patient Health Questionnaire-2 Score 1 05/07/2025 [facility] - Occupational [...] place to sleep or slept in a alf (including now)? Yes 08/29/2024 PHQ-9 Answer Date [...] any time in the past 12 m [facility], were you homeless or living in a alf (including now)? No 03/06/2025 CAGE ASSESSMENT Answer [...] drink first t kennedy in the morning (EYE-BEHAVIORAL HEALTH PROFESSIONAL) to steady your nerves or to get [...] 1 03/01/2025 ergocalciferol (Vitamin D-2) 1.25 MG (33350 UT) capsuleIndications: Vitamin D deficiency Take 1 [...] Upcoming Encounters Date Type Department Care Team ([facility] st Contact Info) Description 06/27/2025 9:30 AM EDT Appointment [facility] [address] [place] [address] 06/27/2025 10:30 AM EDT Appointment [facility] [address] [place] [address] 07/04/2025 10:30 AM EDT Appointment [facility] [address] [place] [address] 07/04/2025 11:30 AM EDT Appointment [facility] [address] [place] [address] 07/09/2025 2:40 PM EDT Office Visit [facility] [address] [facility] [place] [address] Ar Dominique MD [address] [place] [address] 07/11/2025 10:30 AM EDT Appointment [facility] [address] [place] [address] 07/11/2025 11:30 AM EDT Appointment [facility] [address] [place] [address] 07/18/2025 10:30 AM EDT Appointment [facility] [address] [place] [address] 07/18/2025 11:30 AM EDT Appointment [facility] [address] [place] [address] 07/25/2025 10:30 AM EDT Appointment [facility] [address] [place] [address] 07/25/2025 11:30 AM EDT Appointment [facility] [address] [place] [address] 07/31/2025 9:00 AM EDT Office Visit [facility] [address] [place] [address] Alvarez Zimmer MD [address] [place] [address] 08/20/2025 9:30 AM EDT Clinical Support [facility] [address] [place] [address] 08/20/2025 10:30 AM EDT Social Work [facility] [address] [place] [address] Deysi Ortega [place], [place] [id number] 08/20/2025 11:00 AM EDT Office Visit [facility] [address] [place] [address] Jude Duque MD [address] [place] [address] 10/30/2025 1:20 PM EST Office Visit [facility] [address] [place] [id number] Sharif Moreno, DPM [address] [place] [address] documented as of this encounter Procedures Procedure [...] are consistent with and integrated into the [employer] Diseases [...] are consistent with and integrated into the [employer]for [employer] Liver Diseases (AASLD) [...] documented as of this encounter Care Teams Instrument Lens Generator Relationship Specialty Start Date End Date Alvarez Zimmer MD [facility] [place] [address] PCP - General Family Medicine 12/07/24 Lea Fernando [address] [place] [phone] Child Development Director Endocrinology 08/29/24 Rachel Ray APRN [address] [place] [address] Nurse Practitioner Gastroenterology 09/24/24 documented as of this encounter
--- OUTSIDE RECORDS SUMMARY | 2025-05-10 13:00 | XMS_ITS | Encounter Summary ---
Author Organization Healthcare Address [address] [id number] Care Team Providers Care Vacuum Filter Operator Name Role Phone Lea Fernando Unavailable [phone] Rachel Ray OLIVE GRADER Unavailable [phone] Alvarez Zimmer MD Primary Care Provider [phone] Reason for Referral * Clinic-Administered Medication (Routine) - Closed Specialty Diagnoses / Procedures Referred By Eder t Referred To Contact Diagnoses Other ascites Procedures NE ABDOM PARACENTESIS DX/THER W IMAGING GUIDANCE Marianna Gordon APRN [address] [place] [address] Phone: tel: fax: [facility] [address] [place] [address] Phone: tel: fax: Referral ID Status Reason Start Date Expiration Date Visits Re quested Visits Authorized [id number] Closed 05/10/2025 11/09/2026 1 1 * Imaging (Routine) - Closed Specialty Diagnoses / Procedures Referred By Eder t Referred To Contact Radiology Diagnoses Other ascites Procedures US Guided Thoracentesis Marianna Gordon APRN [address] [place] [address] Phone: tel: fax: Referral ID Status Reason Start Date Expiration Date Visits Re quested Visits Authorized [id number] Closed 04/18/2025 10/18/2026 1 1 * Imaging (Routine) - Closed Specialty Diagnoses / Procedures Referred By Eder zhu Referred To Contact Radiology Diagnoses Other ascites Procedures US Guided Abdominal Paracentesis Marianna Gordon APRN [address] [place] [address] Phone: tel: fax: Referral ID Status Reason Start Date Expiration Date Visits Re quested Visits Authorized [id number] Closed 04/18/2025 10/18/2026 1 1 Reason for Visit * Imaging (Routine) - Closed Specialty Diagnoses / Procedures Referred By Eder zhu Referred To Contact Radiology Diagnoses Other ascites Procedures US Guided Abdominal Paracentesis Marianna Gordon APRN [address] [place] [address] Phone: tel: fax: Referral ID Status Reason Start Date Expiration Date Visits Re quested Visits Authorized [id number] Closed 04/18/2025 10/18/2026 1 1 Encounter Details Date Type Department Care Team (Latest Contact Info) Description 05/10/2025 1:00 PM EDT - 05/10/2025 5:07 PM EDT Hospital Encounter [facility] Interventional Radiology [address] [place] [address] Abdoul Cuello 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 Patient unable to answer 01/10/2025 Do you belong to any clubs o r organizations such as baptism groups, unions, fraternal or athletic groups, or [...] Patient Health Questionnaire-2 Score 1 05/07/2025 [facility] - Occupational [...] place to sleep or slept in a detention (including now)? Yes 08/29/2024 PHQ-9 Answer Date [...] any time in the past 12 m [facility], were you homeless or living in a detention (including now)? 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 0 10/22/2024 CAGE Questionnaire Score 0 024 Utilities Answer Date Recorded In the past 12 months has th Managed Objects, BOND, oil, or water [employer] threatened to shut off services in your [...] Sign Reading Time Taken Comments Blood Pressure 109/63 05/10/2025 5:05 PM EDT Pulse 73 05/10/2025 5:05 PM EDT Temperature 36.7 C (98 F) 05/10/2025 5:05 PM EDT Respiratory Rate 17 05/10/2025 5:05 PM EDT Oxygen Saturation 98% 05/10/2025 5:05 PM EDT Inhaled Oxygen Concentration - - Weight 81 kg (178 lb 9.2 oz) 05/10/2025 1:20 PM EDT Height 165.1 cm (5' 5 ) 05/10/2025 1:20 PM EDT Body Mass Index 29.72 05/10/2025 1:20 PM EDT documented in this encounter Medications at Time [...] 1 03/01/2025 ergocalciferol (Vitamin D-2) 1.25 MG (44687 UT) capsuleIndications: Vitamin D deficiency Take 1 [...] hyperglycemia, with long-term current use of insulin ([facility]) Inject 0.6 mg under the [...] to area in chest. 100 g 03/05/2025 07/16/202 5 lactulose (Chronulac) 10 GM/15ML oral solution [...] 08/29/2020 5 documented as of this encounter Miscellaneous Notes * Progress Notes - Abdoul Cuello - 05/10/2025 5:43 PM EDT VSS, NAD noted, VU of care after discharge and denies questions or concerns. Discharged to private vehicle by WC; accompanied by NCT x 1; all personal belongings with pt, bay void of any patient belongings upon exit. Abdoul Cuello RN 05/10/2025 5:43 PM * Post-Procedure Note - Marianna Gordon APRN - 05/10/2025 2:15 PM EDT Vascular and Interventional Radiology Brief Postprocedure Note Performed by: Marianna Gordon APRN Youth Development Professional: NA Pre-operative Diagnosis: right pleural effusion and ascites Post-operative Diagnosis: same Type of Anesthesia: Local Description of Findings: right pleural effusion and ascites Technical/Surgical Procedures Used: image guided right thoracentesis and paracentesis Specimen Obtained: Yes, cell count Complications: None Estimated Blood Loss: none Procedure Events Event Event Time See detailed result report with images in PACS. The patient tolerated the procedure well without incident or complication and is in stable condition. * Interval H&P Note - Marianna Gordon APRN - 05/10/2025 2:15 PM EDT H&P reviewed. No new changes Source Note - Shaniqua Mccurdy APRN - 05/02/2025 [...] Total DLP (Dose-Length Product): 1722.82 mGy.cm (accession [id number]), 1722.82 mGy.cm (accession [id number]). Please note: The reported value represents the [...] no aneurysm of either internal carotid artery. [place] and Major Peripheral Branches: There [...] is no recent study available for direct lfld-le-rpgc comparison. Assessment & Plan: Decompensated MASH cirrhosis Ascites Hepatic hydrothorax MELD 3.0: 20 [...] the care of this patient. Shaniqua Mccurdy, OLIVE GRADER Interventional Radiology [phone] [1] Past Medical History: Diagnosis Date ADHD (attention deficit hyperactivity disorder) Allergic Anxiety disorder, unspecified Anxiety Bleeding gums Blood in urine Cataract Chronic kidney disease Cirrhosis (CMS/HCC) Colon cancer screening 09/20/2019 Added automatically from request for surgery [id number] Coronary artery disease Depression 1995 Diabetes mellitus [...] 1979 BLADDER SURGERY N/A Bladder surgery from [facility] BREAST BIOPSY 2011 BREAST SURGERY 2010 BUNIONECTOMY Right CATARACT EXTRACTION Bilateral 2016 CHOLECYSTECTOMY 1979 ESOPHAGOGASTRODUODENOSCOPY HYSTERECTOMY N/A Hysterectomy from [facility] KNEE SURGERY Bilateral ORAL SURGERY N/A Oral surgery from [facility] OTHER SURGICAL HISTORY 2014 ROOT CANAL WISDOM TOOTH EXTRACTION [3] Social [...] Rfl: 1 ergocalciferol (Vitamin D-2) 1.25 MG (16655 UT) capsule, Take 1 capsule by mouth [...] at a time per patient request, Disp: 93499 mL, Rfl: 11 omeprazole (PriLOSEC) 40 MG [...] lidocaine)10 mL, 10 mL, Infiltration, Once, Marianna Gordon APRN Insert peripheral IV, , , Once AND Saline lock IV, , , Once AND sodium chloride 0.9 % flush10 mL, 10 mL, Intravenous, q12h AND sodium chloride 0.9 % flush 10 mL, 10 mL, Intravenous, PRN,Marianna Gordon APRN documented in this encounter Plan of Treatment Upcoming Encounters Date Type Department Care Team (Late st Contact Info) Description 06/27/2025 9:30 AM EDT Appointment [facility] Inter[facility] Radiology [address] [place] [address] 06/27/2025 10:30 AM EDT Appointment [facility] Inter[facility] Radiology [address] [place] [address] 07/04/2025 10:30 AM EDT Appointment [facility] Inter[facility] Radiology [address] [place] [address] 07/04/2025 11:30 AM EDT Appointment [facility] Inter[facility] Radiology [address] [place] [address] 07/09/2025 2:40 PM EDT Office Visit [facility] [address], [address] [place] [address] Ar Dominique MD [address] [place] [address] 07/11/2025 10:30 AM EDT Appointment [facility]iology [address] [place] [phone] 07/11/2025 11:30 AM EDT Appointment [facility] [address] [place] [address] 07/18/2025 10:30 AM EDT Appointment [facility] [address] [place] [address] 07/18/2025 11:30 AM EDT Appointment [facility] [address] [place] [address] 07/25/2025 10:30 AM EDT Appointment [facility] [address] [place] [address] 07/25/2025 11:30 AM EDT Appointment [facility] Inter[facility]iology [address] [place] [address] 07/31/2025 9:00 AM EDT Office Visit [facility] [address] [place] [address] Alvarez Zimmer MD [address] [place] [address] 08/20/2025 9:30 AM EDT Clinical Support [facility] [address] [place] [address] 08/20/2025 10:30 AM EDT Social Work [facility] [address] [place] [address] [place] [address] 08/20/2025 11:00 AM EDT Office Visit [facility] [address] [place] [address] Jude Duque MD [address] [place] [address] 10/30/2025 1:20 PM EST Office Visit [facility] [address] [place] [address] Sharif Moreno, DPM [address] [place] [address] documented as of this encounter Procedures Procedure Name Priority Date/Time Associated Diagnosis Comments XR CHEST 1 VIEW STAT 05/10/2025 5:16 PM EDT US GUIDED ABDOMINAL PARACENTESIS Routine 05/10/2025 4:57 PM EDT Other ascites US GUIDED THORACENTESIS Routine 05/10/20 4:57 PM EDT Other ascites TOTAL PROTEIN, PERITONEAL FLUID Routine 05/10/2025 4:36 PM EDT BODY FLUID CELL COUNT W/ MANUAL DIFFERENTIAL Routine 05/10/2025 4:35 PM EDT BODY FLUID, CYTOSPIN, PATHOLOGIST INTERPRETATION Routine 05/10/2025 4:35 PM EDT POCT GLUCOSE METER UNSOLICITED RESULTS Routine 05/10/2025 3:29 PM EDT documented in this encounter Results * XR Chest 1 View (05/10/2025 5:16 PM EDT) Anatomical Region Laterality Modality Chest Digital Radiogra phy Impressions 05/10/2025 6:32 PM EDT No pneumothorax. CRITICAL RESULT: No. COMMUNICATION: Per this written report. Drafted by Gloria Angel MD on 05/10/2025 6:31 PM Final report signed by Gloria Angel MD on 05/10/2025 6:32 PM Narrative 05/10/2025 6:32 PM EDT CLINICAL INDICATION: Post thoracentesis TECHNIQUE: XR CHEST 1 VIEW COMPARISON: May 03, 2025. FINDINGS: Mild bibasilar atelectasis. No consolidation. No pneumothorax. No significant pleural effusion. Cardiac silhouette is within normal limits. Procedure Note Gloria Angel MD - 05/10/2025 CLINICAL INDICATION: Post thoracentesis TECHNIQUE: XR CHEST 1 VIEW COMPARISON: May 03, 2025. FINDINGS: Mild bibasilar atelectasis. No consolidation. No pneumothorax. Nosignificant pleural effusion. Cardiac silhouette is within normallimits. IMPRESSION: No pneumothorax. CRITICAL RESULT: No. COMMUNICATION: Per this written report. Drafted by Gloria Angel MD on 05/10/2025 6:31 PM Final report signed by Gloria Angel MD on 05/10/2025 6:32 PM us Marianna Gordon OLIVE GRADER IMG XR PROCEDURES Final Resu lt * US Guided Thoracentesis (05/10/2025 4:57 PM EDT) Anatomical Region Laterality Modality Chest Ultrasound Impressions 05/13/2025 7:18 PM EDT Technically successful ultrasound guided thoracentesis. A total of 2.3 liters of clear anthony fluid was removed CRITICAL RESULT: No. COMMUNICATION: Per this written report. Preliminary report signed by SOLANGE Omalley on 05/13/2025 8:19 AM By electronically signing this report, I, the attending physician, attest that I was not present for the procedure(s) but agree with the final edited report. Drafted by SOLANGE Omalley on 05/13/2025 8:16 AM Final report signed by Ck Palacios MD on 05/13/2025 7:18 PM Narrative 05/13/2025 7:18 PM EDT CLINICAL INDICATION: Gabi Zimmer is a 64 y.o. 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 TECHNIQUE: Dross Skimmer: Marianna Gordon APRN Secondary Snow Removal/Plowing: None. Nurse: Maryam Technologist: Kalina Phillips Dose: NA Medications: Continuous physiologic monitoring provided by a qualified healthcare professional. Administered: 1% Lidocaine SQ. Antibiotics: NA Time out: 155 Procedure: After discussion of risks and benefits, informed written consent was obtained. Appropriate time out was done to confirm patient identity and planned procedure. The patient was placed sitting up and initial limited right chest ultrasound scan performed. Strict hand hygiene protocol was observed with the operators doing a surgical hand scrub. All personnel in the room were attired in surgical hat and mask. The operators were in surgical hat, mask, sterile gloves and gowns. The site was prepped with 2% chlorhexidine for cutaneous antisepsis, followed by sterile barrier draping. Limited chest ultrasound was performed, which showed an anechoic fluid collection in the right posterior pleural space. 1% lidocaine used for local analgesia. Under ultrasound guidance, a 6 Fr safety-centesis catheter was advanced into the pleural fluid. Ultrasound images were sent to permanent storage in PACS. A total of 2.3 liters of clear anthony fluid was removed. The needle was removed and occlusive dressing applied. The patient tolerated the procedure well. The patient left the IR suite in stable condition. COMPARISON: None. FINDINGS: Large right pleural fluid. COMPLICATION: No. Procedure Note Ck Palacios MD - 05/13/2025 CLINICAL INDICATION: Gabi Zimmer is a 64 y.o. 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 TECHNIQUE: Dross Skimmer: Marianna Gordon APRN Secondary Snow Removal/Plowing: None. Nurse: Maryam Technologist: Kalina Phillips Dose: NA Medications: Continuous physiologic monitoring provided by a qualifiedhealthcare professional. Administered: 1% Lidocaine SQ. Antibiotics: NA Time out: 155 Procedure: After discussion of risks and benefits, informed written consent wasobtained. Appropriate time out was done to confirm patient identity andplanned procedure. The patient was placed sitting up and initial limitedright chest ultrasound scan performed. Strict hand hygiene protocol was observed with the operators doing asurgical hand scrub. All personnel in the room were attired in surgicalhat and mask. The operators were in surgical hat, mask, sterile glovesand gowns. The site was prepped with 2% chlorhexidine for cutaneousantisepsis, followed by sterile barrier draping. Limited chest ultrasound was performed, which showed an anechoic fluidcollection in the right posterior pleural space. 1% lidocaine used forlocal analgesia. Under ultrasound guidance, a 6 Fr safety-centesiscatheter was advanced into the pleural fluid. Ultrasound images were sentto permanent storage in PACS. A total of 2.3 liters of clear anthony fluidwas removed. The needle was removed and occlusive dressing applied. The patient tolerated the procedure well. The patient left the IR suitein stable condition. COMPARISON: None. FINDINGS: Large right pleural fluid. COMPLICATION: No. IMPRESSION: Technically successful ultrasound guided thoracentesis. A total of 2.3 liters of clear anthony fluid was removed CRITICAL RESULT: No. COMMUNICATION: Per this written report. Preliminary report signed by SOLANGE Omalley on 05/13/2025 8:19 AM By electronically signing this report, I, the attending physician, attestthat I was not present for the procedure(s) but agree with the finaledited report. Drafted by SOLANGE Omalley on 05/13/2025 8:16 AM Final report signed by Ck Palacios MD on 05/13/2025 7:18 PM us Marianna Gordon OLIVE GRADER IMG US PROCEDURES Final Resu lt * US Guided Abdominal Paracentesis (05/10/2025 4:57 PM EDT) Anatomical Region Laterality Modality Abdomen Ultrasound Impressions 05/13/2025 7:19 PM EDT Technically successful US-guided paracentesis. A total of 3.2 liters of clear anthony fluid was removed. A sample of the fluid was sent for laboratory analysis. Administered Albumin 37.5 g IV once post procedure CRITICAL RESULT: No. COMMUNICATION: Per this written report. Preliminary report signed by SOLANGE Omalley on 05/13/2025 8:21 AM By electronically signing this report, I, the attending physician, attest that I was not present for the procedure(s) but agree with the final edited report. Drafted by SOLANGE Omalley on 05/13/2025 8:20 AM Final report signed by Ck Palacios MD on 05/13/2025 7:19 PM Narrative 05/13/2025 7:19 PM EDT CLINICAL INDICATION: Gabi Zimmer is a 64 y.o. 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 TECHNIQUE: Dross Skimmer: Marianna Gordon APRN Secondary Snow Removal/Plowing: None. Nurse: Maryam Technologist: Kalina Phillips Dose: NA Medications: Continuous physiologic monitoring provided by a qualified healthcare professional. Administered: 1% Lidocaine SQ. Antibiotics: NA Time out: 1557 Procedure: After discussion of risks and benefits, [...] collection in the left lower quadrant. 1% lidocaine used for local analgesia. Under real time US guidance, a 6 Fr safety-centesis catheter was advanced into the ascites. Ultrasound images were sent to permanent storage in PACS. A total of 3.2 liters of clear anthony fluid was removed. The centesis catheter was removed and occlusive dressing applied. The patient tolerated the procedure well. The patient left the IR suite in stable condition. COMPARISON: None. FINDINGS: moderate volume ascites. COMPLICATION: No. Procedure Note Ck Palacios MD - 05/13/2025 CLINICAL INDICATION: Gabi Zimmer is a 64 y.o. 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 TECHNIQUE: Dross Skimmer: Marianna Gordon APRN Secondary Snow Removal/Plowing: None. Nurse: Maryam Technologist: Kalina Phillips Dose: NA Medications: Continuous physiologic monitoring provided by a qualifiedhealthcare professional. Administered: 1% Lidocaine SQ. Antibiotics: NA Time out: 1557 Procedure: After discussion of risks and benefits, [...] fluidcollection in the left lower quadrant. 1% lidocaine used for localanalgesia. Under real time US guidance, a 6 Fr safety-centesis catheterwas advanced into the ascites. Ultrasound images were sent to permanentstorage in PACS. A total of 3.2 liters of clear anthony fluid was removed.The centesis catheter was removed and occlusive dressing applied. The patient tolerated the procedure well. The patient left the IR suitein stable condition. COMPARISON: None. FINDINGS: moderate volume ascites. COMPLICATION: No. IMPRESSION: Technically successful US-guided paracentesis. A total of 3.2 liters of clear anthony fluid was removed. A sample of the fluid was sent for laboratory analysis. Administered Albumin 37.5 g IV once post procedure CRITICAL RESULT: No. COMMUNICATION: Per this written report. Preliminary report signed by SOLANGE Omalley on 05/13/2025 8:21 AM By electronically signing this report, I, the attending physician, attestthat I was not present for the procedure(s) but agree with the finaledited report. Drafted by SOLANGE Omalley on 05/13/2025 8:20 AM Final report signed by Ck Palacios MD on 05/13/2025 7:19 PM us Marianna N Cheeks OLIVE GRADER IMG US PROCEDURES Final Resu lt * Protein - Ascites (05/10/2025 4:36 PM EDT) Total Protein, Fluid 0.7 g/dL 05/10/2025 7:01 PM EDT [facility] Ascites Peritoneal cavity structure / Unknown 05/10/2025 4:36 PM EDT 05/10/2025 4:54 PM EDT Narrative [facility] - 05/10/2025 7:01 PM EDT This test was developed and its performance characteristics determined by [facility]. The U.S. Food and Drug Administration has not approved or cleared this test. However, FDA clearance or approval is not currently required for clinical use. The results are not intended to be used as the sole means for clinical diagnosis or patient management decisions. us Marianna N Cheeks OLIVE GRADER LAB BODY FLUIDS AND STOOLS O RDERABLES Final Result [facility] [address] [place] [address] * Body fluid, cytospin, pathologist interpretation (05/10/2025 4:35 PM EDT) Specimen Type Body Fluid LAB HEMATOLOGY METHOD 05/13/2025 5:28 PM EDT [facility] Specimen Source, Body Fluid Peritoneal Fluid LAB HEMATOLOGY METHOD 05/13/2025 5:28 PM EDT [facility] Clinical Diagnosis, Body Fluid Ascites LAB HEMATOLOGY METHOD 05/13/2025 5:28 PM EDT [facility] Interpretation , Body Fluid No evidence of malignancy Predominantly chronic inflammatory cells Lymphocytosis with reactive forms noted Light blood A resident was involved in the service. I attest I examined the relevant preparations for the specimens and confirmed the diagnosis or interpretation. 05/13/2025 5:28 PM EDT [facility] Pathologist Signature, Body Fluid 05/13/2025 5:28 PM EDT [facility] Comment:Reviewed by: Kadie dobbs MD LAB CP ASR DISCLAIMER Yes 05/13/2025 5:28 PM EDT [facility] Body Fluid Peritoneal fluid / Unknown Non-blood Collection / Unknown 05/10/2025 4:35 PM EDT 05/10/2025 4:54 PM EDT us Marianna N Cheeks OLIVE GRADER LAB BODY FLUIDS AND STOOLS O RDERABLES Final Result [facility] [address] [place] [address] * (ABNORMAL) Body Fluid Cell Count With Diff - Ascites (05/10/2025 4:35 PM EDT) Color, Body fluid [place] LAB HEMATOLOGY METHOD 05/10/2025 11:19 PM EDT [facility] Appearance, Body fluid Cloudy(A) LAB HEMATOLOGY METHOD 05/10/2025 11:19 PM EDT [facility] Volume, Body fluid 30.0 cc LAB HEMATOLOGY METHOD 05/10/2025 11:19 PM EDT [facility] Fluid Container Specimen received in miscellaneous container LAB HEMATOLOGY METHOD 05/10/2025 11:19 PM EDT [facility] Red Blood Cell Count, Body fluid 6,000 uL LAB HEMATOLOGY METHOD 05/10/2025 11:19 PM EDT [facility] Total Nucleated Cell Count, Body fluid 187 uL LAB HEMATOLOGY METHOD 05/10/2025 11:19 PM EDT [facility] Neutrophils %, Body fluid 2 % LAB HEMATOLOGY METHOD 05/10/2025 11:19 PM EDT [facility] Lymphocytes %, Body fluid 69 % LAB HEMATOLOGY METHOD 05/10/2025 11:19 PM EDT [facility] Monocytes/Macr ophages %, Body fluid 26 % LAB HEMATOLOGY METHOD 05/10/2025 11:19 PM EDT [facility] Eosinophils %, Body fluid 0 % LAB HEMATOLOGY METHOD 05/10/2025 11:19 PM EDT [facility] Lining/[place]es[place] lial Cells %, Body fluid 3 % LAB HEMATOLOGY METHOD 05/10/2025 11:19 PM EDT [facility] Neutrophils Absolute (PMN), Body fluid 4 uL LAB HEMATOLOGY METHOD 05/10/2025 11:19 PM EDT [facility] Lymphocytes Absolute, Body fluid 129 uL LAB HEMATOLOGY METHOD 05/10/2025 11:19 PM EDT [facility] Monocytes/Macr ophages Absolute, Body fluid 49 uL LAB HEMATOLOGY METHOD 05/10/2025 11:19 PM EDT [facility] Eosinophils Absolute, Body fluid 0 uL LAB HEMATOLOGY METHOD 05/10/2025 11:19 PM EDT [facility] Basophils Absolute, Body fluid 0 uL LAB HEMATOLOGY METHOD 05/10/2025 11:19 PM EDT [facility] Lining/Mes[place] lial Cells Absolute, Body fluid 6 uL LAB HEMATOLOGY METHOD 05/10/2025 11:19 PM EDT [facility] Basophils %, Body fluid 0 % LAB HEMATOLOGY METHOD 05/10/2025 11:19 PM EDT [facility] Body Fluid Peritoneal fluid / Unknown Non-blood Collection / Unknown 05/10/2025 4:35 PM EDT 05/10/2025 4:54 PM EDT us Marianna N Cheeks OLIVE GRADER LAB BODY FLUIDS AND STOOLS ORDERABLES NO SPECIMEN TYPE/SOURCE Final Result [facility] [address] [place] [address] * POCT glucose meter (05/10/2025 3:29 PM EDT) [facility] POCT Glucose 95 74 - 99 mg/dL 05/10/2025 3:31 PM EDT [facility] Comment:Accuracy of a glucos e result obtained from a capillary whole blood specimen relies upon adequate, non-compromised capillary blood flow. If the capillary glucose result is not consistent with the patient's clinical signs and symptoms, glucose testing should be repeated with either an arterial or venous sample on the glucometer or sent to the main labortory for testing. 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) (CMS/HCC)- Primary Other ascites documented in this encounter Administered Medications Inactive Administered Medications - up to 3 most recent administrations Medication Order MAR Action Action Date Dose Rate Site albumin human 25 % infusion 37.5 g 37.5 g, Intravenous, Once as needed, 1 dose, Starting on Tue05/10/25 at 1606, Until Tue05/10/25 at 1637, Routine, Intraprocedure, For 5-6.9 L drained New Bag 05/10/2025 4:37 PM EDT 37.5 g lidocaine 0.9% in sodium bicarbonate (buffered lidocaine) solution solution As needed, Starting on Tue05/10/25 at 1558, Until Tue05/10/25 at 1632, Routine, Intraprocedure Given 05/10/2025 4:32 PM EDT 10 mL Given 05/10/2025 3:58 PM EDT 10 mL documented in this encounter Additional Health Concerns Assessment Noted Time PHQ-9 Depression Total Score: 0 03/06/20 1:21 PM EDT A fall risk assessment has been complete d for the patient 05/07/2025 9:12 AM EDT A Body Mass Index follow-up plan has been documented for the patient 05/07/2025 11:34 AM EDT documented as of this encounter Care Teams Vacuum Filter Operator Relationship Specialty Start Date End Date Alvarez Zimmer MD [address] [place] [address] PCP - General Family Medicine 12/07/24 Lea Fernando [address] [facility] [address] [place] [address] Underground Supervisor Endocrinology 08/29/24 Rachel Ray APRN [address] [id number] Nurse Practitioner Gastroenterology 09/24/24 documented as of this encounter
--- OUTSIDE RECORDS SUMMARY | 2025-05-10 17:08 | XMS_ITS | Encounter Summary ---
Author Organization Healthcare Address [address] [place] [address] Care Team Providers Care Lay Health Advocate Name Role Phone Lea Fernando Unavailable [phone] Rachel Ray RETAIL MANAGER IN TRAINING Unavailable [phone] Alvarez Zimmer MD Primary Care Provider [phone] Encounter Details Date Type Department Care Team (Latest Contact Info) Description 05/10/2025 5:08 PM EDT - 05/10/2025 11:59 PM EDT Hospital Encounter [facility] Radiology [address] [place] [address] Discharge Disposition: Home or Self Care Social [...] often do you attend chur ch or yarsanism services? Patient unable to answer 01/10/2025 Do you belong to any clubs o r organizations such as presybeterian groups, unions, fraternal or athletic groups, or [...] Recorded Patient Health Questionnaire-2 Score 1 05/07/2025 [facility] - Occupational Stress Questionnaire Answer Date Recorded [...] any time in the past 12 m [facility], were you homeless or [...] drink first t kennedy in the morning (EYE-FIELD CONSULTANT) to steady your nerves or to get [...] on file documented as of this encounter Medications at [...] 1 03/01/2025 ergocalciferol (Vitamin D-2) 1.25 MG (02980 UT) capsuleIndications: Vitamin D deficiency Take 1 [...] [facility] [address] [place] [address] 06/27/2025 10:30 AM EDT Appointment [facility] [address] [place] [address] 07/04/2025 10:30 AM EDT Appointment [facility] [address] [place] [address] 07/04/2025 11:30 AM EDT Appointment [facility] Inter[facility] Radiology [address] [place] [address] 07/09/2025 2:40 PM EDT Office Visit [facility] Mineral Metabolism [address] [facility], [address] [place] [address] Ar Dominique MD [address] [facility] [address] [place] [address] 07/11/2025 10:30 AM EDT Appointment [facility] Inter[facility] Radiology [address] [place] [address] 07/11/2025 11:30 AM EDT Appointment [facility]iology [address] [place] [address] 07/18/2025 10:30 AM EDT Appointment [facility] [address] [place] [address] 07/18/2025 11:30 AM EDT Appointment [facility] [address] [place] [address] 07/25/2025 10:30 AM EDT Appointment [facility] [address] [place] [address] 07/25/2025 11:30 AM EDT Appointment [facility] [address] [place] [address] 07/31/2025 9:00 AM EDT Office Visit [address] [place] [address] Alvarez Zimmer MD [address] [place] [address] 08/20/2025 9:30 AM EDT Clinical Support [facility] [place] [address] [place] [address] 08/20/2025 10:30 AM EDT Social Work [facility] [place] [address] [place] [address] [place] [address] 08/20/2025 11:00 AM EDT Office Visit [facility] [place] [address] [place] [address] Jude Duque MD [address] [place] [address] 10/30/2025 1:20 PM EST Office Visit [facility] Endocrinology [address] [place] [address] Sharif Moreno, DPM [address] [place] [address] documented as of this encounter Procedures Procedure Name Priority Date/Time Associated Diagnosis Comments XR CHEST 1 VIEW STAT 05/10/2025 5:16 PM EDT documented in this encounter Results [...] MD on 05/10/2025 6:32 PM us Marianna N Gabrielaekjo RETAIL MANAGER IN TRAINING IMG XR PROCEDURES Final Resu lt documented in this encounter Visit Diagnoses Not on filedocumented in this encounter Additional Health Concerns Assessment Noted Time PHQ-9 Depression Total Score: 0 03/06/20 25 1:21 PM EDT A fall risk assessment has been complete d for the patient 05/07/2025 9:12 AM EDT A Body Mass Index follow-up plan has been documented for the patient 05/07/2025 11:34 AM EDT documented as of this encounter Care Teams Lay Health Advocate Relationship Specialty Start Date End Date Alvarez Zimmer MD [address] [place] [phone] PCP - General Family Medicine 12/07/24 Lea Fernando [address] [facility] [address] [place] [address] Enrollment Management Director Endocrinology 08/29/24 Rachel Ray APRN [address] [place] [address] Nurse Practitioner Gastroenterology 09/24/24 documented as of this encounter
--- OUTSIDE RECORDS SUMMARY | 2025-05-16 08:01 | XMS_ITS | Encounter Summary ---
Author Organization Healthcare Address [address] [id number] Care Team Providers Care Canoe Inspector Name Role Phone Lea Fernando Unavailable [phone] Rachel Ray APRN Unavailable [phone] Alvarez Zimmer MD Primary Care Provider [phone] Reason for Referral * Clinic-Administered Medication (Routine) - Closed Specialty Diagnoses / Procedures Referred By Eder t Referred To Contact Diagnoses Other ascites Procedures TN ABDOM PARACENTESIS DX/THER W IMAGING GUIDANCE Micheal Glasgow APRN, DNP [address] [place] [address] Phone: tel: fax: [facility] [address] [place] [address] Phone: tel: fax: Referral ID Status Reason Start Date Expiration Date Visits Re quested Visits Authorized [id number] Closed 05/16/2025 11/15/2026 1 1 * Imaging (Routine) - Closed Specialty Diagnoses / Procedures Referred By Eder t Referred To Contact Radiology Diagnoses Other ascites Procedures US Guided Thoracentesis Marianna Gordon APRN [address] [place] [address] Phone: tel: fax: Referral ID Status Reason Start Date Expiration Date Visits Re quested Visits Authorized [id number] Closed 04/26/2025 10/26/2026 1 1 * Imaging (Routine) - Closed Specialty Diagnoses / Procedures Referred By Eder zhu Referred To Contact Radiology Diagnoses Other ascites Procedures US Guided Abdominal Paracentesis Marianna Gordon APRN [address] [place] [address] Phone: tel: fax: Referral ID Status Reason Start Date Expiration Date Visits Re quested Visits Authorized [id number] Closed 04/26/2025 10/26/2026 1 1 Reason for Visit * Imaging (Routine) - Closed Specialty Diagnoses / Procedures Referred By Eder zhu Referred To Contact Radiology Diagnoses Other ascites Procedures US Guided Abdominal Paracentesis Marianna Gordon APRN [address] [place] [address] Phone: tel: fax: Referral ID Status Reason Start Date Expiration Date Visits Re quested Visits Authorized [id number] Closed 04/26/2025 10/26/2026 1 1 Encounter Details Date Type Department Care Team (Late st Contact Info) Description 05/16/2025 8:01 AM EDT - 05/16/2025 11:03 AM EDT Hospital Encounter [facility] Interventional Radiology [address] [place] [address] Kandice Silva RN [facility]-VASCULAR & INTERVENTIONAL RADIOLOGY Other ascites Discharge Disposition: Home or Self [...] week 01/10/2025 How often do you attend [facility] or zoroastrian services? Patient unable to answer 01/10/2025 Do [...] Recorded Patient Health Questionnaire-2 Score 1 05/07/2025 [facility] - Occupational Stress [...] any time in the past 12 [facility], were you homeless or living in [...] drink first t kennedy in the morning (EYE-BASKETBALLS AND FOOTBALLS REVERSER) to steady your nerves or to get rid of a hangover? 0 10/22/2024 CAGE Questionnaire Score 0 024 Utilities Answer Date Recorded In the past 12 months has e [employer], gas, oil, or water company threatened to [...] Sign Reading Time Taken Comments Blood Pressure 113/62 05/16/2025 11:00 AM EDT Pulse 88 05/16/2025 11:00 AM EDT Temperature 36.8 C (98.2 F) 05/16/2025 10:43 AM EDT Respiratory Rate 20 05/16/2025 11:00 AM EDT Oxygen Saturation 94% 05/16/2025 11:00 AM EDT Inhaled Oxygen Concentration - - Weight 85.5 kg (188 lb 7.9 oz) 05/16/2025 8:22 A M EDT Height 165.1 cm (5' 5 ) 05/16/2025 8:22 AM EDT Body Mass Index 31.37 05/16/2025 8:22 AM EDT documented in this encounter Discharge Instructions * Discharge Instructions* Kandice Silva RN - 05/16/2025 11:13 AM EDT *Interventional Radiology* (IR) Questions/Concerns & Appointments: If there are questions or concerns after discharge please call: [facility]iology Clinic at [phone] Tuesday - Tuesday 8:00 AM to 4:30 PM After hours, weekends, and holidays please call [phone] and ask for the Interventional Radiology provider/Resident on-call Intervention Radiology Appointments: If you need to reschedule a procedure, please call our Schedulers at [phone], option 4. If you need to schedule or reschedule a clinic appointment, please call [phone]. [facility] Vascular and Interventional Radiology Clinic [facility] [address] [place] [address] documented in this encounter Medications at Time [...] 1 03/01/2025 ergocalciferol (Vitamin D-2) 1.25 MG (66310 UT) capsuleIndications: Vitamin D deficiency Take 1 [...] Needle Micro U/F) 32G X 6 MM [facility] Use to inject insulin 4 times per [...] Take 1 tablet by mouth nightly. 08/29/2020 documented as of this encounter Miscellaneous Notes * Kandice Gamez RN - 05/16/2025 11:13 AM EDT Images from the original note were not included. [id number] Discharge Instructions for Paracentesis Paracentesis is a [...] fainting. Last Reviewed Date: 2025 00:00:00 ?? [id number] [employer]. All rights reserved. This information is not intended as a substitute for professional medical care. Always follow your healthcare professional's instructions. * John OnTHEO - Kandice Silva RN - 05/16/2025 11:13 AM EDT Images from the original note were not included. [id number] Discharge Instructions for Thoracentesis Thoracentesis is a procedure that removes extra fluid from the pleural space. This space is betweenthe outside surface of the lungs (pleura) and the chest wall. The extra fluid is called pleural effusion. Thoracentesis may be done to take a sample of the fluid. It can then be tested to help find the cause. Or the procedure may be done to drain the extra fluid if you are having trouble breathing. Home care ? You may have some pain after the procedure. Your doctor may prescribe pain medicine, if needed. Take these exactly as directed. ? If you stopped taking other medicines before the procedure, ask your doctor when you can start them again. ? Take it easy for 48 hours after the procedure. Don't do anything active until your doctor says it?s okay. ? Don't do strenuous activities, such as lifting, until your doctor says it?s okay. ? Don't travel in an airplane until your doctor says it's okay to do so. ? You will have a small bandage over the puncture site. You may remove the bandage in 24 hours, or when your doctor says it's okay. ? Check the puncture site for the signs of infection listed below. Follow-up Make a follow-up appointment with your doctor as directed. During your follow-up visit, your doctorwill check your healing. Be sure to let your doctor know how you are feeling. When to contact your doctor Contact your doctor right away if you have: ? A fever of 100.4??F (38??C) or higher, or as directed. ? Pain that doesn't get better after taking pain medicine. ? Signs of infection at the puncture site. These include increased pain, redness, warmth, swelling,or fluid leaking that is green or yellow or smells bad. ? Fluid draining from the puncture site. ? Bleeding from the puncture site. When to call 911 Call 911 or get care at the nearest emergency department if you have: ? Chest pain that is unusual or suddenly gets worse. ? Shortness of breath. ? Coughing up blood. Last Reviewed Date: 2025 00:00:00 ?? [id number] [employer]. All rights reserved. This information is not intended as a substitute for professional medical care. Always follow your healthcare professional's instructions. * Post-Procedure Note - Micheal Glasgow APRN, DNP - 05/16/2025 9:45 AM EDT Vascular and Interventional Radiology Brief Postprocedure Note Provider: ADRI Glasgow Pre-operative Diagnosis: Ascites + right pleural effusion Post-operative Diagnosis: Ascites + right pleural effusion Type of Anesthesia: Local Description of Findings: Large volume ascites + right pleural effusion Technical/Surgical Procedures Used: Ultrasound guided paracentesis + right thoracentesis Complications: None Estimated Blood Loss: none Procedure Events Event Event Time See detailed result report with images in PACS. The patient tolerated the procedure well without incident or complication and is in stable condition. * Interval H&P Note - Micheal Glasgow APRN, DNP - 05/16/2025 9:45 AM EDT Reviewed H&P, no acute changes Source Note - Shaniqua Mccurdy APRN [...] Total DLP (Dose-Length Product): 1722.82 mGy.cm (accession [id number]), 1722.82 mGy.cm (accession [id number]). Please note: The reported value represents the [...] no aneurysm of either internal carotid artery. [place] of [place] and Major Peripheral Branches: There [...] is no recent study available for direct [id number]-[id number]-ygis comparison. Assessment & Plan: Decompensated [facility] cirrhosis Ascites Hepatic hydrothorax MELD 3.0: 20 [...] the care of this patient. Shaniqua Mccurdy, COMMUNITY HEALTH NAVIGATOR Interventional Radiology [phone] [1] Past Medical History: Diagnosis Date ADHD (attention deficit hyperactivity disorder) Allergic Anxiety disorder, unspecified Anxiety Bleeding gums Blood in urine Cataract Chronic kidney disease Cirrhosis (CMS/HCC) Colon cancer screening 09/20/2019 Added automatically from request for surgery [id number] Coronary artery disease Depression 1995 Diabetes mellitus [...] 1979 BLADDER SURGERY N/A Bladder surgery from [facility] BREAST BIOPSY 2011 BREAST SURGERY 2010 BUNIONECTOMY Right CATARACT EXTRACTION Bilateral 2016 CHOLECYSTECTOMY 1979 ESOPHAGOGASTRODUODENOSCOPY HYSTERECTOMY N/A Hysterectomy from [facility] KNEE SURGERY Bilateral ORAL SURGERY N/A Oral surgery from [facility] OTHER SURGICAL HISTORY 2014 ROOT CANAL WISDOM [...] Rfl: 1 ergocalciferol (Vitamin D-2) 1.25 MG (44864 UT) capsule, Take 1 capsule by mouth [...] at a time per patient request, Disp: 72141 mL, Rfl: 11 omeprazole (PriLOSEC) 40 MG [...] (buffered lidocaine)10 mL, 10 mL, Infiltration, Once, Cheeks, Marianna Dixon, COMMUNITY HEALTH NAVIGATOR Insert peripheral IV, , , Once AND Saline lock IV, , , Once AND sodium chloride 0.9 % flush10 mL, 10 mL, Intravenous, q12h AND sodium chloride 0.9 % flush 10 mL, 10 mL, Intravenous, PRN,Cheeks, Marianna N, COMMUNITY HEALTH NAVIGATOR documented in this encounter Plan of Treatment Upcoming Encounters Date Type Department Care Team (Late st Contact Info) Description 06/27/2025 9:30 AM EDT Appointment [facility] Inter[facility] Radiology [address] [place] [address] 06/27/2025 10:30 AM EDT Appointment [facility] Inter[facility]iology [address] [place] [address] 07/04/2025 10:30 AM EDT Appointment [facility] Inter[facility]iology [address] [place] [address] 07/04/2025 11:30 AM EDT Appointment [facility] Inter[facility] Radiology [address] [place] [address] 07/09/2025 2:40 PM EDT Office Visit Professional [facility] [address], [address] [place] [address] Ar Dominique MD [address] [place] [address] 07/11/2025 10:30 AM EDT Appointment [facility] Interventional Radiology [facility] [place] [address] 07/11/2025 11:30 AM EDT Appointment [facility] Inter[facility] Radiology [address] [place] [address] 07/18/2025 10:30 AM EDT Appointment [facility] Inter[facility] Radiology [address] [place] [address] 07/18/2025 11:30 AM EDT Appointment [facility] [address] [place] [address] 07/25/2025 10:30 AM EDT Appointment [facility]iology [address] [place] [address] 07/25/2025 11:30 AM EDT Appointment [facility] Inter[facility]iology [address] [place] [address] 07/31/2025 9:00 AM EDT Office Visit [facility] [address] [place] [address] Alvarez Zimmer MD [address] [place] [address] 08/20/2025 9:30 AM EDT Clinical Support [facility] [address] [place] [address] 08/20/2025 10:30 AM EDT Social Work [facility] [address] [place] [address] Deysi Ortega [place], [place] [id number] 08/20/2025 11:00 AM EDT Office Visit [facility] [address] [place] [address] Jude Duque MD [address] [place] [address] 10/30/2025 1:20 PM EST Office Visit [facility] [address] [place] [address] Sharif Moreno, DPM [address] [place] [address] documented as of this encounter Procedures Procedure Name Priority Date/Time Associated Diagnosis Comments XR CHEST 1 VIEW STAT 05/16/2025 11:14 AM EDT US GUIDED ABDOMINAL PARACENTESIS Routine 05/16/2025 10:32 AM EDT Other ascites US GUIDED THORACENTESIS Routine 05/16/20 10:32 AM EDT Other ascites BODY FLUID CELL COUNT W/ MANUAL DIFFERENTIAL Routine 05/16/2025 9:26 AM EDT BODY FLUID, CYTOSPIN, PATHOLOGIST INTERPRETATION Routine 05/16/2025 9:26 AM EDT TOTAL PROTEIN, PERITONEAL FLUID Routine 05/16/2025 9:26 AM EDT documented in this encounter Results * XR Chest 1 View (05/16/2025 11:14 AM EDT) Anatomical Region Laterality Modality Chest Digital Radiogra phy Impressions 05/16/2025 11:27 AM EDT No pneumothorax. CRITICAL RESULT: No. COMMUNICATION: Per this written report. By electronically signing this report, I, the attending physician, attest that I have personally reviewed the images/data for the above examination(s) and agree with the final edited report. Drafted by Marcelo Pritchett MD on 05/16/2025 11:24 AM Final report signed by Bari Aguillon MD on 05/16/2025 11:27 AM Narrative 05/16/2025 11:27 AM EDT CLINICAL INDICATION: s/p right thora TECHNIQUE: XR CHEST 1 VIEW COMPARISON: Chest radiograph 05/10/2025 FINDINGS: Cardiac silhouette and mediastinal contours are within normal limits. No focal consolidation, pleural effusion, or pneumothorax. No acute osseous abnormality. Procedure Note Bari Aguillon MD - 05/16/2025 CLINICAL INDICATION: s/p right thora TECHNIQUE: XR CHEST 1 VIEW COMPARISON: Chest radiograph 05/10/2025 FINDINGS: Cardiac silhouette and mediastinal contours are within normal limits. Nofocal consolidation, pleural effusion, or pneumothorax. No acute osseousabnormality. IMPRESSION: No pneumothorax. CRITICAL RESULT: No. COMMUNICATION: Per this written report. By electronically signing this report, I, the attending physician, attestthat I have personally reviewed the images/data for the aboveexamination(s) and agree with the final edited report. Drafted by Marcelo Pritchett MD on 05/16/2025 11:24 AM Final report signed by Bari Aguillon MD on 05/16/2025 11:27 AM us Micheal Glasgow APRN, ANGELLA IMG XR PROCEDURES Tari l Result * US Guided Thoracentesis (05/16/2025 10:32 AM EDT) Anatomical Region Laterality Modality Chest Ultrasound Impressions 05/16/2025 11:34 AM EDT Technically successful ultrasound guided thoracentesis. A total of 1.9 L of clear orange fluid was removed. CRITICAL RESULT: No. COMMUNICATION: Per this written report. Preliminary report signed by SOLANGE Toure on 05/16/2025 10:43 AM By electronically signing this report, I, the attending physician, attest that I was not present for the procedure(s) but agree with the final edited report. Drafted by SOLANGE Toure on 05/16/2025 10:42 AM Final report signed by Ck Palacios MD on 05/16/2025 11:34 AM Narrative 05/16/2025 11:34 AM EDT CLINICAL INDICATION: Gabi Zimmer is a 64 y.o. 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 TECHNIQUE: Fleet Sales Associate: ADRI Glasgow Secondary Brokerage Purchase And Sale Clerk: None. Nurse: Brian Technologist: Lilliana Phillips Dose: NA Medications: Continuous physiologic monitoring provided by a qualified healthcare professional. Administered: 1% Lidocaine SQ. Antibiotics: NA Time out: 0918 Procedure: After discussion of risks and benefits, [...] an anechoic fluid collection in the right pleural space. 1% lidocaine used for local analgesia. Under direct ultrasound guidance, a 6 Fr safety-centesis catheter was advanced into the pleural fluid. Ultrasound images were sent to permanent storage in PACS. A total of 1.9 L of clear orange fluid was removed. The needle was removed and occlusive dressing applied. The patient tolerated the procedure well. The patient left the IR suite in stable condition. COMPARISON: None. FINDINGS: Large right sided pleural effusion COMPLICATION: No. Procedure Note Ck Palacios MD - 05/16/2025 CLINICAL INDICATION: Gabi Zimmer is a 64 y.o. 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 TECHNIQUE: Fleet Sales Associate: ADRI Glasgow Secondary Brokerage Purchase And Sale Clerk: None. Nurse: Brian Technologist: Lilliana Phillips Dose: NA Medications: Continuous physiologic monitoring provided by a qualifiedhealthcare professional. Administered: 1% Lidocaine SQ. Antibiotics: NA Time out: 917 Procedure: After discussion of risks and benefits, [...] showed an anechoic fluidcollection in the right pleural space. 1% lidocaine used for localanalgesia. Under direct ultrasound guidance, a 6 Fr safety-centesiscatheter was advanced into the pleural fluid. Ultrasound images were sentto permanent storage in PACS. A total of 1.9 L of clear orange fluid wasremoved. The needle was removed and occlusive dressing applied. The patient tolerated the procedure well. The patient left the IR suitein stable condition. COMPARISON: None. FINDINGS: Large right sided pleural effusion COMPLICATION: No. IMPRESSION: Technically successful ultrasound guided thoracentesis. A total of 1.9 L of clear orange fluid was removed. CRITICAL RESULT: No. COMMUNICATION: Per this written report. Preliminary report signed by SOLANGE Toure on 05/16/2025 10:43 AM By electronically signing this report, I, the attending physician, attestthat I was not present for the procedure(s) but agree with the finaledited report. Drafted by SOLANGE Toure on 05/16/2025 10:42 AM Final report signed by Ck Palacios MD on 05/16/2025 11:34 AM us Marianna Dixon Gordon COMMUNITY HEALTH NAVIGATOR IMG US PROCEDURES Final Resu lt * US Guided Abdominal Paracentesis (05/16/2025 10:32 AM EDT) Anatomical Region Laterality Modality Abdomen Ultrasound Impressions 05/16/2025 11:34 AM EDT Technically successful US-guided paracentesis. A total of 5.5 liters of clear yellow fluid was removed A sample of the fluid was sent for laboratory analysis. Administered Albumin 50 g IV once post procedure CRITICAL RESULT: No. COMMUNICATION: Per this written report. Preliminary report signed by SOLANGE Toure on 05/16/2025 10:42 AM By electronically signing this report, I, the attending physician, attest that I was not present for the procedure(s) but agree with the final edited report. Drafted by SOLANGE Toure on 05/16/2025 10:40 AM Final report signed by Ck Palacios MD on 05/16/2025 11:34 AM Narrative 05/16/2025 11:34 AM EDT CLINICAL INDICATION: Gabi Zimmer is a 64 y.o. 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 TECHNIQUE: Fleet Sales Associate: ADRI Glasgow Secondary Brokerage Purchase And Sale Clerk: None. Nurse: Brian Technologist: Lilliana Phillips Dose: NA Medications: Continuous physiologic monitoring provided by a qualified healthcare professional. Administered: 1% Lidocaine SQ. Antibiotics: NA Time out: 917 Procedure: After discussion of risks and benefits, [...] 1% lidocaine used for local analgesia. Under direct real time US guidance, a 6 Fr safety-centesis catheter was advanced into the ascites. Ultrasound images were sent to permanent storage in PACS. A total of 5.5 liters of clear yellow fluid was removed. The centesis catheter was removed and occlusive dressing applied. The patient tolerated the procedure well. The patient left the IR suite in stable condition. COMPARISON: None. FINDINGS: Large volume ascites. COMPLICATION: No. Procedure Note Ck Palacios MD - 05/16/2025 CLINICAL INDICATION: Gabi Zimmer is a 64 y.o. 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 TECHNIQUE: Fleet Sales Associate: ADRI Glasgow Secondary Brokerage Purchase And Sale Clerk: None. Nurse: Brian Technologist: Lilliana Phillips Dose: NA Medications: Continuous physiologic monitoring provided by a qualifiedhealthcare professional. Administered: 1% Lidocaine SQ. Antibiotics: NA Time out: 917 Procedure: After discussion of risks and benefits, [...] quadrant. 1% lidocaine used for localanalgesia. Under direct real time US guidance, a 6 Fr safety-centesiscatheter was advanced into the ascites. Ultrasound images were sent topermanent storage in PACS. A total of 5.5 liters of clear yellow fluidwas removed. The centesis catheter was removed and occlusive dressingapplied. The patient tolerated the procedure well. The patient left the IR suitein stable condition. COMPARISON: None. FINDINGS: Large volume ascites. COMPLICATION: No. IMPRESSION: Technically successful US-guided paracentesis. A total of 5.5 liters of clear yellow fluid was removed A sample of the fluid was sent for laboratory analysis. Administered Albumin 50 g IV once post procedure CRITICAL RESULT: No. COMMUNICATION: Per this written report. Preliminary report signed by SOLANGE Toure on 05/16/2025 10:42 AM By electronically signing this report, I, the attending physician, attestthat I was not present for the procedure(s) but agree with the finaledited report. Drafted by SOLANGE Toure on 05/16/2025 10:40 AM Final report signed by Ck Palacios MD on 05/16/2025 11:34 AM us Marianna Gordon APRN IMG US PROCEDURES Final Resu lt * Body fluid, cytospin, pathologist interpretation (05/16/2025 9:26 AM EDT) Specimen Type Peritoneal Fluid LAB HEMATOLOGY METHOD 05/17/2025 12:25 PM EDT [facility] Specimen Source, Body Fluid Peritoneal Fluid LAB HEMATOLOGY METHOD 05/17/2025 12:25 PM EDT [facility] Clinical Diagnosis, Body Fluid Ascites LAB HEMATOLOGY METHOD 05/17/2025 12:25 PM EDT [facility] Interpretation , Body Fluid No evidence of malignancy Chronic inflammatory cells Light blood A resident was involved in the service. I attest I examined the relevant preparations for the specimens and confirmed the diagnosis or interpretation. 05/17/2025 12:25 PM EDT [facility] Pathologist Signature, Body Fluid 05/17/2025 12:25 PM EDT [facility] Comment:Reviewed by: Kadie dobbs MD LAB CP ASR DISCLAIMER Yes 05/17/2025 12:25 PM EDT [facility] Peritoneal Fluid Peritoneal fluid / Unknown Non-blood Collection / Unknown 05/16/2025 9:26 AM EDT 05/16/2025 10:06 AM EDT us Micheal E Pee COMMUNITY HEALTH NAVIGATOR, DNP LAB BODY FLUIDS AND ST OOLS ORDERABLES Final Result Performing Organization Address [facility] de Phone Number [facility] [address] [place] [address] * Total Protein, Peritoneal Fluid (05/16/2025 9:26 AM EDT) Total Protein, Fluid 0.8 g/dL 05/16/2025 11:23 AM EDT [facility] Peritoneal Fluid Peritoneal cavity structure / Unknown Non-blood Collection / Unknown 05/16/2025 9:26 AM EDT 05/16/2025 10:07 AM EDT Narrative [facility] - 05/16/2025 11:23 AM EDT This test was developed and its performance characteristics determined by [facility]. The U.S. Food and Drug Administration has not approved or cleared this test. However, FDA clearance or approval is not currently required for clinical use. The results are not intended to be used as the sole means for clinical diagnosis or patient management decisions. us Micheal E Pee COMMUNITY HEALTH NAVIGATOR, DNP LAB BODY FLUIDS AND ST OOLS ORDERABLES Final Result Performing Organization Address [facility] [place] Co de Phone Number [facility] [address] [place] [address] * (ABNORMAL) Body Fluid Cell Count w/ Diff (05/16/2025 9:26 AM EDT) Color, Body fluid [place] LAB HEMATOLOGY METHOD 05/16/2025 1:22 PM EDT [facility] Appearance, Body fluid Cloudy(A) LAB HEMATOLOGY METHOD 05/16/2025 1:22 PM EDT [facility] Volume, Body fluid 27.0 cc LAB HEMATOLOGY METHOD 05/16/2025 1:22 PM EDT [facility] Fluid Container Specimen received in miscellaneous container LAB HEMATOLOGY METHOD 05/16/2025 1:22 PM EDT [facility] Red Blood Cell Count, Body fluid 6,000 uL LAB HEMATOLOGY METHOD 05/16/2025 1:22 PM EDT [facility] Total Nucleated Cell Count, Body fluid 184 uL LAB HEMATOLOGY METHOD 05/16/2025 1:22 PM EDT [facility] Neutrophils %, Body fluid 1 % LAB HEMATOLOGY METHOD 05/16/2025 1:22 PM EDT [facility] Lymphocytes %, Body fluid 73 % LAB HEMATOLOGY METHOD 05/16/2025 1:22 PM EDT [facility] Monocytes/Macr ophages %, Body fluid 23 % LAB HEMATOLOGY METHOD 05/16/2025 1:22 PM EDT [facility] Eosinophils %, Body fluid 2 % LAB HEMATOLOGY METHOD 05/16/2025 1:22 PM EDT [facility] Lining/Mesothe lial Cells %, Body fluid 1 % LAB HEMATOLOGY METHOD 05/16/2025 1:22 PM EDT [facility] Neutrophils Absolute (PMN), Body fluid 2 uL LAB HEMATOLOGY METHOD 05/16/2025 1:22 PM EDT [facility] Lymphocytes Absolute, Body fluid 134 uL LAB HEMATOLOGY METHOD 05/16/2025 1:22 PM EDT [facility] Monocytes/Macr ophages Absolute, Body fluid 42 uL LAB HEMATOLOGY METHOD 05/16/2025 1:22 PM EDT [facility] Eosinophils Absolute, Body fluid 4 uL LAB HEMATOLOGY METHOD 05/16/2025 1:22 PM EDT [facility] Basophils Absolute, Body fluid 0 uL LAB HEMATOLOGY METHOD 05/16/2025 1:22 PM EDT [facility] Lining/Mesothe lial Cells Absolute, Body fluid 2 uL LAB HEMATOLOGY METHOD 05/16/2025 1:22 PM EDT [facility] Basophils %, Body fluid 0 % LAB HEMATOLOGY METHOD 05/16/2025 1:22 PM EDT [facility] Peritoneal Fluid Peritoneal fluid / Unknown Non-blood Collection / Unknown 05/16/2025 9:26 AM EDT 05/16/2025 10:06 AM EDT us Micheal E Pee COMMUNITY HEALTH NAVIGATOR, DNP LAB BODY FLUID S AND STOOLS ORDERABLES NO SPECIMEN TYPE/SOURCE Final Result [facility] [address] [place] [address] documented in this encounter Visit Diagnoses Diagnosis Other ascites documented in this encounter Administered Medications Inactive Administered Medications - up to 3 most recent administrations Medication Order MAR Action Action Date Dose Rate Site albumin human 25 % infusion 12.5 g 12.5 g, Intravenous, Every 15 min PRN, 5 doses, Starting on Sarahi 05/16/25 at 0954, Until Tue05/17/25 at 0239, Routine, Intraprocedure, Give additional 12.5 g doses per albumin replacement chart New Bag 05/16/2025 10:35 AM EDT 12.5 g albumin human 25 % infusion 37.5 g 37.5 g, Intravenous, Once as needed, 1 dose, Starting on Sarahi 05/16/25 at 0954, Until Sarahi 05/16/25 at 0956, Routine, Intraprocedure, For 5-6.9 L drained New Bag 05/16/2025 9:56 AM EDT 37.5 g lidocaine 0.9% in sodium bicarbonate (buffered lidocaine) solution solution As needed, Starting on Sarahi 05/16/25 at 1013, Until Sarahi 05/16/25 at 1013, Routine, Intraprocedure Given 05/16/2025 10:13 AM EDT 10 mL lidocaine 1% in sodium bicarbonate (buffered lidocaine)10 mL 10 mL, Infiltration, Once, 1 dose, On Sarahi 05/16/25 at 0900, Routine, Holding - Preprocedure Given by Other 05/16/2025 9:19 AM EDT 10 mL documented in this encounter Additional Health Concerns Assessment Noted Time PHQ-9 Depression Total Score: 0 03/06/20 25 1:21 PM EDT A fall risk assessment has been complete d for the patient 05/07/2025 9:12 AM EDT A Body Mass Index follow-up plan has been documented for the patient 05/16/2025 11:13 AM EDT documented as of this encounter Care Teams Canoe Inspector Relationship Specialty Start Date End Date Alvarez Zimmer MD [address] [place] [address] PCP - General Family Medicine 12/07/24 Lea Fernando [address] [place] [phone] Dormitory Keeper Endocrinology 08/29/24 Rachel Ray APRN [address] [facility] [address] [place] [address] Nurse Practitioner Gastroenterology 09/24/24 documented as of this encounter
--- OUTSIDE RECORDS SUMMARY | 2025-05-16 11:04 | XMS_ITS | Encounter Summary ---
Author Organization Healthcare Address [address] [place] [address] Care Team Providers Care Biostatistics Manager Name Role Phone Lea Fernando Unavailable [phone] Rachel Ray POWER EQUIPMENT MECHANICS INSTRUCTOR Unavailable [phone] Alvarez Zimmer MD Primary Care Provider [phone] Encounter Details Date Type Department Care Team (Latest Contact Info) Description 05/16/2025 11:04 AM EDT - 05/16/2025 11:59 PM EDT Hospital Encounter [facility] Rad[facility] [address] [place] [address] Discharge Disposition: Home or Self Care Social [...] often do you attend chur ch or mu-ism services? Patient unable to answer 01/10/2025 Do you belong to any clubs o r organizations such as confucianism groups, unions, fraternal or athletic groups, or [...] Patient Health Questionnaire-2 Score 1 05/07/2025 [facility] - Occupational Stress Questionnaire Answer Date [...] place to sleep or slept in a retirement (including now)? Yes 08/29/2024 PHQ-9 Answer Date [...] any time in the past 12 m [facility], were you homeless or living in a retirement (including now)? No 03/06/2025 CAGE ASSESSMENT Answer [...] drink first t kennedy in the morning (EYE-LOAD TESTER) to steady your nerves or to get [...] 1 03/01/2025 ergocalciferol (Vitamin D-2) 1.25 MG (80266 UT) capsuleIndications: Vitamin D deficiency Take 1 [...] [facility] Inter[facility] Radiology [address] [place] [address] 06/27/2025 10:30 AM EDT Appointment [facility] [address] [place] [address] 07/04/2025 10:30 AM EDT Appointment [facility] [address] [place] [address] 07/04/2025 11:30 AM EDT Appointment [facility]iology [address] [place] [address] 07/09/2025 2:40 PM EDT Office Visit [facility] Bone & Mineral Metabolism [address], [address] [place] [address] Ar Dominique MD [address] [place] [address] 07/11/2025 10:30 AM EDT Appointment [facility]iology [address] [place] [address] 07/11/2025 11:30 AM EDT Appointment [facility] [address] [place] [address] 07/18/2025 10:30 AM EDT Appointment [facility] [address] [place] [address] 07/18/2025 11:30 AM EDT Appointment [facility] [address] [place] [address] 07/25/2025 10:30 AM EDT Appointment [facility] [address] [place] [address] 07/25/2025 11:30 AM EDT Appointment [facility] [address] [place] [address] 07/31/2025 9:00 AM EDT Office Visit [address] [place] [address] Alvarez Zimmer MD [address] [place] [address] 08/20/2025 9:30 AM EDT Clinical Support [facility] [address] [place] [address] 08/20/2025 10:30 AM EDT Social Work [facility] [address] [place] [address] [place] [address] 08/20/2025 11:00 AM EDT Office Visit [facility] [address] [place] [address] Jude Duque MD [address] [place] [address] 10/30/2025 1:20 PM EST Office Visit [facility] Endocrinology [address] [place] [address] Sharif Moreno, DPM [address] [place] [address] documented as of this encounter [...] 05/16/2025 11:27 AM us Micheal E Pee POWER EQUIPMENT MECHANICS INSTRUCTOR, DNP IMG XR PROCEDURES Tari l Result [...] documented as of this encounter Care Teams Biostatistics Manager Relationship Specialty Start Date End Date Alvarez Zimmer MD [address] [place] [address] PCP - General Family Medicine 12/07/24 Lea Fernando [address] [place] [address] Room Worker Endocrinology 08/29/24 Rachel Ray APRN [address] [place] [address] Nurse Practitioner Gastroenterology 09/24/24 documented as of this encounter
--- OUTSIDE RECORDS SUMMARY | 2025-05-17 09:20 | XMS_ITS | Encounter Summary ---
Author Organization [facility] Address [address] [place] [address] Care Team Providers Care Appellate Conferee Name Role Phone Lea Fernando Unavailable [phone] Rachel Ray HEAD OF STOCK Unavailable [phone] Alvarez Zimmer MD Primary Care Provider [phone] Reason for Referral * Consultation (Routine) - Authorized Specialty Diagnoses / Procedures Referred By Contac t Referred To Contact Diagnoses Type 2 diabetes mellitus with hyperglycemia, with long-term current use of insulin (CMS/HCC) Enmanuel Wetzel MD [address] [address] Phone: tel: fax: Referral ID Status Reason Start Date Expiration Date V isits Requested Visits Authorized [id number] Authorized 05/17/2025 11/16/2026 1 1 Encounter Details Date Type Department Care Team (Late st Contact Info) Description 05/17/2025 9:20 AM EDT Office Visit [facility] [address] [address] Enmanuel Wetzel MD [address] [facility] [address] [place] [address] Type 2 diabetes mellitus with hyperglycemia, with long-term current use of insulin (CMS/HCC) (Primary Dx); Chronic kidney disease, stage 3b ([facility]); Dyslipidemia Social History Tobacco Use Types Packs/Day Years [...] week 01/10/2025 How often do you attend [facility] or restorationism services? Patient unable to answer 01/10/2025 Do you belong to any clubs o r organizations such as samaritan groups, unions, fraternal or athletic groups, or [...] Recorded Patient Health Questionnaire-2 Score 1 05/07/2025 [facility] [place] of Occupat ional Health - Occupational Stress [...] place to sleep or slept in a senior care (including now)? Yes 08/29/2024 PHQ-9 Answer Date [...] were you homeless or living in a senior care (including now)? No 03/06/2025 CAGE ASSESSMENT Answer [...] drink first t kennedy in the morning (EYE-DIRECTOR SANITATION BUREAU) to steady your nerves or to get rid of a hangover? 0 10/22/2024 CAGE Questionnaire Score 0 024 Utilities Answer Date Recorded In the past 12 months has th [employer], gas, oil, or water Michael [employer]ie[employer] threatened to shut off services in your [...] on file documented as of this encounter Miscellaneous Notes * Progress Notes - Enmanuel Wetzel MD - 05/17/2025 9:20 AM EDT Patient Verification Patient identity has been confirmed using name and date of ? Yes Authorizations and Agreements/Telemedicine Consent sent and consent confirmed? Yes Patient Location: home Patient confirms physically located in [place]? Yes Originating site: HealthCare Visit Type: Telecare via online digital audio and video I personally spent 30 minutes on patient's visit today including chart review, time spent with the patient obtaining the history, reviewing pertinent tests, documentation, counseling and discussion of care. Total time excludes time spent on reviewing the CGM data. Reason for visit: F/U Re: Diabetes Mellitus. The Patient was previously seen at Endocrinology by Miranda Hobson APRN on 02/04/2025. In theinterim, she had visits w/ Brock Mckeon, PharmD. Reviewed the office notes in [facility]. Subjective Gabi Zimmer is a 64 y.o. female. The patient was diagnosed with Diabetes Mellitus Type 2 in 1996. Her other medical problems includedecompensated cirrhosis complicated by ascites treated w/ wkly paracentesis, CAD, COPD, JONATHAN, CKD, DDD, dyslipidemia, moderate protein- calorie malnutrition, syncope, RA, and lumbar spondylosis. There is no history of DKA. The patient's current diabetes medication regimen includes: Glargine 52 units qam and Aspart 24 units before meals, 12 units before small meals/snacks + SSI 4:50>150. She has not been on steroids. The patient tries to eat as much as she can d/t her GI symptoms (nausea and bloating). The patient is not active. The patient does self-glucose monitoring using a DexCom. The patient's home glucose ranged: up to 300s. She reports hypoglycemia awareness. She had an episode of hypoglycemia when she was undergoing paracentesis recently. The patient reports fatigue and cold intolerance. The patient has been under stress. Her son informed her that he is not going to be taking her to her appointments. Objective Vitals 05/16/25 Wt 188 lb 7.9 oz BMI 31.37 BP 113/62 P 88 PE Constitutional: Appearance: chronically ill-appearing. Pulmonary: Effort: Pulmonary effort is normal. Neurological: Mental Status: alert. Psychiatric: Mood and Affect: normal. Behavior: normal. Tests Reviewed Lab Results Component Value Date HGBA1C 6.2 (H) 01/08/2025 TSH 2.03 10/22/2024 TRIGLYCERIDE 39 10/30/2024 NA 139 05/07/2025 K 4.6 05/07/2025 CREATININE 1.83 (H) 05/07/2025 CALCIUM 9.4 05/07/2025 ALBUMIN 3.1 (L) 05/07/2025 EGFR 30.9 05/07/2025 AST 43 (H) 05/07/2025 ALT 17 05/07/2025 WBC 4.14 05/07/2025 HGB 10.6 (L) 05/07/2025 HCT 32.4 (L) 05/07/2025 ALBCREA 11 04/30/2016 CGM data review Dates: 04/17/25-05/16/25 Days of data: 97% Glucose average: 266 Glucose variability: CV 35.5% SD 94 mg/dl Time in Range: 23 GMI: 9.7% Glucose distribution: <1% <54, 0% <70, 23% 70-180, 25% >180, 52% >250. Interpretation: OTC hyperglycemia. Assessment/Plan Diabetes Mellitus Type 2, uncontrolled Most recent A1C 6.2 (at goal) in 12/2024 compared to 8.6 in 10/2024. Recheck A1C to follow its trend. Of note, anemia and CKD affect the accuracy of her A1C. GMI 9.6 based on her most recent 30 day CGM data, indicating worse DM control. She is listed on high dose of Insulin especially the doses of prandial insulin and SSI which could put her at risk for hypoglycemia given her chronic liver disease, CKD and decreased po intake. She does not report technical issues w/ injecting her insulin. Before adjusting her insulin, recommend checking insulin level and glucose fasting to correlate. In terms of Chronic Diabetes Complications, The patient reportedly, has no history of retinopathy. The last eye exam was in 07/2024. DM eye examrecommended annually. The patient has neuropathy. The last foot exam was in 04/[address] Moreno (Nerve Specialist). The patient has nephropathy. Spot urine Pr/Cr 0.1 in 10/2024, goal up to 0.1, recheck recommended annually. CKD stage 3b The patient's BP (last on record) is at goal. BMP in 04/2025 w/ eGFR 30.9. The patient is on Midodrine. Monitor. Dyslipidemia The patient's last FLP (TC 70 HDL 25 TG 49 LDL 32) in 10/2024. TSH normal in 10/2024. AST borderline > NL ALT normal in 04/2025. The patient has CAD. The patient never smoked. She was on rosuvastatin and Zetia. - FLP monitoring recommended annually. RTC: 1 month. Tests ordered: Fasting BMP insulin a1c soon. Electronically signed by: Enmanuel Wetzel MD [facility] END[facility] [address] [place] [address] PHONE [phone] FAX: [phone] documented in this encounter Plan of Treatment Upcoming Encounters Date Type Department Care Team (Late st Contact Info) Description 06/27/2025 9:30 AM EDT Appointment [facility] Interventional Radiology [address] [place] [address] 06/27/2025 10:30 AM EDT Appointment [facility] Inter[facility] Radiology [address] [place] [address] 07/04/2025 10:30 AM EDT Appointment [facility] Radiology [address] [place] [address] 07/04/2025 11:30 AM EDT Appointment [facility] Inter[facility] Radiology [address] [place] [address] 07/09/2025 2:40 PM EDT Office Visit [facility] Bone & Mineral Metabolism [address], [address] [place] [address] Ar Dominique MD [address] [place] [address] 07/11/2025 10:30 AM EDT Appointment [facility] Radiology [address] [place] [address] 07/11/2025 11:30 AM EDT Appointment [facility] [address] [place] [address] 07/18/2025 10:30 AM EDT Appointment [facility] [address] [place] [address] 07/18/2025 11:30 AM EDT Appointment [facility] [address] [place] [address] 07/25/2025 10:30 AM EDT Appointment [facility] [address] [place] [address] 07/25/2025 11:30 AM EDT Appointment [facility] [address] [place] [address] 07/31/2025 9:00 AM EDT Office Visit [facility] [address] [place] [address] Alvarez Zimmer MD [address] [place] [address] 08/20/2025 9:30 AM EDT Clinical Support [facility] [address] [place] [address] 08/20/2025 10:30 AM EDT Social Work [facility] [address] [place] [address] Deysi Ortega [place], [place] [address] 08/20/2025 11:00 AM EDT Office Visit [facility] [address] [place] [address] Jude Duque MD [address] [place] [address] 10/30/2025 1:20 PM EST Office Visit [facility] Endocrinology [address] [place] [address] Sharif Moreno, ROSY [address] [place] [address] Scheduled Referrals Name Type Priority Associated Diagnoses Orde r Schedule Follow Up [facility] Outpatient Referral Routine Type 2 diabetes mellitus with hyperglycemia, with long-term current use of insulin ([facility]) Expected: 06/14/2025, Expires: 11/18/2026 documented as of this encounter Results * (ABNORMAL) Basic metabolic panel (05/30/2025 9:59 AM EDT) Glucose, Plasma 199(H) 74 - 99 mg/dL 05/30/2025 10:49 AM EDT [facility] BUN, Plasma 29(H) 8 - 23 mg/dL 05/30/2025 10:49 AM EDT [facility] Creatinine, Plasma 1.44(H) 0.60 - 1.10 mg/dL 05/30/2025 10:49 AM EDT [facility] BUN/Creatinine Ratio 20 05/30/2025 10:49 AM EDT [facility] Sodium, Plasma 140 136 - 145 mmol/L 05/30/2025 10:49 AM EDT [facility] Potassium, Plasma 5.0(H) 3.6 - 4.9 mmol/L 05/30/2025 10:49 AM EDT [facility] Chloride, Plasma 108(H) 97 - 107 mmol/L 05/30/2025 10:49 AM EDT [facility] CO2, Plasma 19(L) 22 - 29 mmol/L 05/30/2025 10:49 AM EDT [facility] Anion Gap 13 6 - 16 mmol/L 05/30/2025 10:49 AM EDT [facility] Total Calcium, Plasma 8.6(L) 8.9 - 10.2 mg/dL 05/30/2025 10:49 AM EDT [facility] eGFRcr 41.2 mL/min/1.7 3m*2 05/30/2025 10:49 AM EDT [facility] Comment:Reported eGFRcr in m L/min/1.73m2 is based the CKD-EPI 2020 equation that does not use a race coefficient. Blood Venous blood specimen / Unknown Venipuncture / Unknown 05/30/2025 9:59 AM EDT 05/30/2025 10:16 AM EDT us Enmanuel Wetzel MD LAB BLOOD ORDERABLES Final Resu lt [facility] [address] [place] [address] * (ABNORMAL) Insulin, random (05/30/2025 9:59 AM EDT) Insulin 32.7(H) 3.0 - 16.0 uU/mL 05/30/2025 12:00 PM EDT [facility] Blood Venous blood specimen / Unknown Venipuncture / Unknown 05/30/2025 9:59 AM EDT 05/30/2025 10:16 AM EDT us Enmanuel Wetzel MD LAB BLOOD ORDERABLES Final Resu lt Performing Organization Address [facility]/ZIP Co de Phone Number [facility] [address] [place] [address] * (ABNORMAL) Hemoglobin A1c (05/23/2025 9:27 AM EDT) Hemoglobin A1c 7.3(H) <5.7 % 05/23/2025 11:03 AM EDT [facility] Blood Venous blood specimen / Unknown Venipuncture / Unknown 05/23/2025 9:27 AM EDT 05/23/2025 9:45 AM EDT Narrative [facility] - 05/23/2025 11:03 AM EDT HA1C Interpretive Data: Diagnosis of Diabetes: Diabetic > or = 6.5% Pre-diabetic 5.7 to 6.4% Non-diabetic < or = 5.6% Glycemic Targets for Type I and Type II Diabetics: Non- Adults <7.0% Adults <6.0% Children and Adolescents <7.5% Source: [place] [employer]. Standards of medical care in diabetes,2017. Diabetes Care.2017:40 (suppl 1):S1-S135. us Enmanuel Wetzel MD LAB BLOOD ORDERABLES Final Resu lt Performing Organization Address City/[facility]/[place] [address] documented in this encounter Visit Diagnoses Diagnosis Type 2 diabetes mellitus with hyperglycemia, with long-term current use of insulin ([facility])- Primary Chronic kidney disease, stage 3b (CMS/HCC) Dyslipidemia Other and unspecified hyperlipidemia documented in this encounter Additional Health Concerns Assessment Noted Time PHQ-9 Depression Total Score: 0 03/06/20 25 1:21 PM EDT A fall risk assessment has been complete d for the patient 05/07/2025 9:12 AM EDT A Body Mass Index follow-up plan has been documented for the patient 05/19/2025 12:23 PM EDT documented as of this encounter Care Teams Appellate Conferee Relationship Specialty Start Date End Date Alvarez Zimmer MD [address] [place] [address] PCP - General Family Medicine 12/07/24 Lea Fernando [address] [place] [address] [employer] Merchandising Coordinator Endocrinology 08/29/24 Rachel Ray, HEAD OF STOCK [address] [facility] [address] [place] [address] Nurse Practitioner Gastroenterology 09/24/24 documented as of this encounter
--- OUTSIDE RECORDS SUMMARY | 2025-05-23 08:31 | XMS_ITS | Encounter Summary ---
Author Organization Healthcare Address [address] [id number] Care Team Providers Care Hand Mold Maker Name Role Phone Lea Fernando Unavailable [phone] Rachel Ray APRN Unavailable [phone] Alvarez Zimmer MD Primary Care Provider [phone] Reason for Referral * Clinic-Administered Medication (Routine) - Closed Specialty Diagnoses / Procedures Referred By Eder zhu Referred To Contact Diagnoses Other ascites Procedures [place] ABDOM PARACENTESIS DX/THER W IMAGING GUIDANCE Micheal Glasgow APRN, DNP [address] [place] [address] Phone: tel: fax: [facility] [address] [place] [address] Phone: tel: fax: Referral ID Status Reason Start Date Expiration Date Visits Re quested Visits Authorized [id number] Closed 05/23/2025 11/22/2026 1 1 * Imaging (Routine) - Closed Specialty Diagnoses / Procedures Referred By Eder t Referred To Contact Radiology Diagnoses Other ascites Procedures US Guided Abdominal Paracentesis Marianna Gordon APRN [address] [place] [address] Phone: tel: fax: Referral ID Status Reason Start Date Expiration Date Visits Re quested Visits Authorized [id number] Closed 04/26/2025 10/26/2026 1 1 Reason for Visit * Imaging (Routine) - Closed Specialty Diagnoses / Procedures Referred By Eder zhu Referred To Contact Radiology Diagnoses Other ascites Procedures US Guided Abdominal Paracentesis Marianna Gordon APRN [address] [place] [address] Phone: tel: fax: Referral ID Status Reason Start Date Expiration Date Visits Re quested Visits Authorized [id number] Closed 04/26/2025 10/26/2026 1 1 Encounter Details Date Type Department Care Team (Late st Contact Info) Description 05/23/2025 8:31 AM EDT - 05/23/2025 8:47 AM EDT Hospital Encounter [facility] Interventional Radiology [address] [place] [address] Kael Mohan, RN INFECTION PREVENTION & CONTROL [...] often do you attend chur ch or amish services? Patient unable to answer 01/10/2025 Do you belong to any clubs o r organizations such as confucianist groups, unions, fraternal or athletic groups, or [...] Recorded Patient Health Questionnaire-2 Score 1 05/07/2025 [facility] Answer [...] slept in a care home (including now)? Yes 08/29/2024 PHQ-9 Answer [...] any time in the past 12 m [facility], were you homeless or living in a care home (including now)? No 03/06/2025 CAGE ASSESSMENT [...] drink first t kennedy in the morning (EYE-SYSTEM ARCHITECT) to steady your nerves or to get [...] call: Vascular and Interventional Radiology Clinic at [phone] Tuesday - Tuesday 8:00 AM to 4:30 PM After hours, weekends, and holidays please call [phone] and ask for the Interventional Radiology provider/Resident on-call Intervention Radiology Appointments: If you need to reschedule a procedure, please call our Schedulers at [phone], option 4. If you need to schedule or reschedule a clinic appointment, please call [phone]. [facility] Interventional Rad[facility] [address], [address] [place] [address] documented in this encounter Medications at Time [...] 1 03/01/2025 ergocalciferol (Vitamin D-2) 1.25 MG (81108 UT) capsuleIndications: Vitamin D deficiency Take 1 [...] with long-term current use of insulin ([facility]) Inject 0.6 mg under the skin 1 [...] Total DLP (Dose-Length Product): 1722.82 mGy.cm (accession [id number]), 1722.82 mGy.cm (accession [id number]). Please note: The reported value represents the [...] no aneurysm of either internal carotid artery. [place] and Major Peripheral Branches: There [...] is no recent study available for direct umrv-vm-qmrp comparison. Assessment & Plan: Decompensated MASH cirrhosis [...] the care of this patient. Shaniqua Mccurdy, FRONT END LOADER OPERATOR Interventional Radiology [phone] [1] Past Medical History: Diagnosis Date ADHD (attention deficit hyperactivity disorder) Allergic Anxiety disorder, unspecified Anxiety Bleeding gums Blood in urine Cataract Chronic kidney disease Cirrhosis (CMS/HCC) Colon cancer screening 09/20/2019 Added automatically from request for surgery [id number] Coronary artery disease Depression 1995 Diabetes mellitus [...] 1979 BLADDER SURGERY N/A Bladder surgery from [facility] BREAST BIOPSY 2011 BREAST SURGERY 2010 BUNIONECTOMY Right CATARACT EXTRACTION Bilateral 2016 CHOLECYSTECTOMY 1980 ESOPHAGOGASTRODUODENOSCOPY HYSTERECTOMY N/A Hysterectomy from [facility] KNEE SURGERY Bilateral ORAL SURGERY N/A Oral surgery from [facility] OTHER SURGICAL HISTORY 2015 ROOT CANAL WISDOM [...] Rfl: 1 ergocalciferol (Vitamin D-2) 1.25 MG (87008 UT) capsule, Take 1 capsule by mouth [...] at a time per patient request, Disp: 38800 mL, Rfl: 11 omeprazole (PriLOSEC) 40 MG [...] 10 mL, 10 mL, Intravenous, PRN,Marianna Gordon FRONT END LOADER OPERATOR documented in this encounter Plan of Treatment Upcoming Encounters Date Type Department Care Team (Late st Contact Info) Description 06/27/2025 9:30 AM EDT Appointment [facility] Interventional Radiology [address] [place] [address] 06/27/2025 10:30 AM EDT Appointment [facility] Interventional Radiology [address] [place] [address] 07/04/2025 10:30 AM EDT Appointment [facility] Interventional Radiology [address] [place] [address] 07/04/2025 11:30 AM EDT Appointment [facility] Interventional Radiology [address] [place] [address] 07/09/2025 2:40 PM EDT Office Visit [facility] Mineral Metabolism [address], [address] [place] [address] Ar Dominique MD [address] [place] [address] 07/11/2025 10:30 AM EDT Appointment [facility] Interventional Radiology [address] [place] [address] 07/11/2025 11:30 AM EDT Appointment [facility] Interventional Radiology [address] [place] [address] 07/18/2025 10:30 AM EDT Appointment [facility] Interventional Radiology [address] [place] [address] 07/18/2025 11:30 AM EDT Appointment [facility] Interventional Radiology [address] [address] 07/25/2025 10:30 AM EDT Appointment [facility] Interventional Radiology [address] [address] 07/25/2025 11:30 AM EDT Appointment [facility] Interventional Radiology [address] [place] [address] 07/31/2025 9:00 AM EDT Office Visit [facility] [address] [place] [address] Alvarez Zimmer MD [address] [place] [address] 08/20/2025 9:30 AM EDT Clinical Support [facility] [place] [address] [place] [address] 08/20/2025 10:30 AM EDT Social Work [facility] [place] [address] [place] [address] Deysi Ortega [place], [place] [id number] 08/20/2025 11:00 AM EDT Office Visit [facility] [place] [address] [place] [address] Jude Dquue MD [address] [place] [address] 10/30/2025 1:20 PM EST Office Visit [facility] Endocrinology [address] [place] [address] Sharif Moreno, DPM [address] [place] [address] Scheduled Orders Name Type Priority [...] 05/23/2025 12:44 PM us Micheal E Pee FRONT END LOADER OPERATOR, DNP IMG XR PROCEDURES Tari l Result * Body fluid, cytospin, pathologist interpretation (05/23/2025 11:07 AM EDT) Specimen Type Body Fluid LAB HEMATOLOGY METHOD 05/27/2025 4:32 PM EDT [facility] Specimen Source, Body Fluid Peritoneal Fluid LAB HEMATOLOGY METHOD 05/27/2025 4:32 PM EDT [facility] Clinical Diagnosis, Body Fluid Ascites LAB HEMATOLOGY METHOD 05/27/2025 4:32 PM EDT [facility] Interpretation , Body Fluid No evidence of malignancy; chronic inflammatory cells, light blood A resident was involved in the service. I attest I examined the relevant preparations for the specimens and confirmed the diagnosis or interpretation. 05/27/2025 4:32 PM EDT [facility] Pathologist Signature, Body Fluid 05/27/2025 4:32 PM EDT [facility] Comment:Reviewed by: Iza Blue MD LAB CP ASR DISCLAIMER Yes 05/27/2025 4:32 PM EDT [facility] Body Fluid Peritoneal fluid / Unknown Non-blood Collection / Unknown 05/23/2025 11:07 AM EDT 05/23/2025 2:32 PM EDT us Micheal E Pee FRONT END LOADER OPERATOR, DNP LAB BODY FLUIDS AND ST OOLS ORDERABLES Final Result [facility] [address] [place] [address] * (ABNORMAL) Body Fluid Cell Count With Diff - Ascites (05/23/2025 11:07 AM EDT) Color, Body fluid [place] LAB HEMATOLOGY METHOD 05/23/2025 8:14 PM EDT [facility] Appearance, Body fluid Cloudy(A) LAB HEMATOLOGY METHOD 05/23/2025 8:14 PM EDT [facility] Volume, Body fluid 25.5 cc LAB HEMATOLOGY METHOD 05/23/2025 8:14 PM EDT [facility] Fluid Container Specimen received in miscellaneous container LAB HEMATOLOGY METHOD 05/23/2025 8:14 PM EDT [facility] Red Blood Cell Count, Body fluid 5,000 uL LAB HEMATOLOGY METHOD 05/23/2025 8:14 PM EDT [facility] Total Nucleated Cell Count, Body fluid 102 uL LAB HEMATOLOGY METHOD 05/23/2025 8:14 PM EDT [facility] Neutrophils %, Body fluid 1 % LAB HEMATOLOGY METHOD 05/23/2025 8:14 PM EDT [facility] Lymphocytes %, Body fluid 86 % LAB HEMATOLOGY METHOD 05/23/2025 8:14 PM EDT [facility] Monocytes/Macr ophages %, Body fluid 13 % LAB HEMATOLOGY METHOD 05/23/2025 8:14 PM EDT [facility] Eosinophils %, Body fluid 0 % LAB HEMATOLOGY METHOD 05/23/2025 8:14 PM EDT [facility] Lining/[place]es[place] lial Cells %, Body fluid 0 % LAB HEMATOLOGY METHOD 05/23/2025 8:14 PM EDT [facility] Neutrophils Absolute (PMN), Body fluid 1 uL LAB HEMATOLOGY METHOD 05/23/2025 8:14 PM EDT [facility] Lymphocytes Absolute, Body fluid 88 uL LAB HEMATOLOGY METHOD 05/23/2025 8:14 PM EDT [facility] Monocytes/Macr ophages Absolute, Body fluid 13 uL LAB HEMATOLOGY METHOD 05/23/2025 8:14 PM EDT [facility] Eosinophils Absolute, Body fluid 0 uL LAB HEMATOLOGY METHOD 05/23/2025 8:14 PM EDT [facility] Basophils Absolute, Body fluid 0 uL LAB HEMATOLOGY METHOD 05/23/2025 8:14 PM EDT [facility] Lining/Mesothe lial Cells Absolute, Body fluid 0 uL LAB HEMATOLOGY METHOD 05/23/2025 8:14 PM EDT [facility] Basophils %, Body fluid 0 % LAB HEMATOLOGY METHOD 05/23/2025 8:14 PM EDT [facility] Body Fluid Peritoneal fluid / Unknown Non-blood Collection / Unknown 05/23/2025 11:07 AM EDT 05/23/2025 2:32 PM EDT us Micheal E Pee FRONT END LOADER OPERATOR, DNP LAB BODY FLUID S AND STOOLS ORDERABLES NO SPECIMEN TYPE/SOURCE Final Result [facility] [address] [place] [address] * Albumin - Ascites (05/23/2025 11:06 AM EDT) Albumin, Peritoneal Fluid 0.3 g/dL 05/23/2025 4:55 PM EDT [facility] Peritoneal Fluid Peritoneal cavity structure / Unknown Non-blood Collection / Unknown 05/23/2025 11:06 AM EDT 05/23/2025 2:32 PM EDT Narrative [facility] - 05/23/2025 4:55 PM EDT [...] or patient management decisions. us Micheal Glasgow FRONT END LOADER OPERATOR, DNP LAB BODY FLUIDS AND ST OOLS ORDERABLES Final Result Performing Organization Address City/[facility]/ZIP Co de Phone Number [facility] [address] [place] [address] * (ABNORMAL) Hemoglobin A1c (05/23/2025 9:27 AM EDT) Hemoglobin A1c 7.3(H) <5.7 % 05/23/2025 11:03 AM EDT [facility] Blood Venous blood specimen / Unknown Venipuncture / Unknown 05/23/2025 9:27 AM EDT 05/23/2025 9:45 AM EDT Narrative [facility] - 05/23/2025 11:03 AM EDT HA1C Interpretive Data: Diagnosis of Diabetes: Diabetic > or = 6.5% Pre-diabetic 5.7 to 6.4% Non-diabetic < or = 5.6% Glycemic Targets for Type I and Type II Diabetics: Non- Adults <7.0% Adults <6.0% Children and Adolescents <7.5% Source: [place] [employer]. Standards of medical care in diabetes,2017. Diabetes Care.2017:40 (suppl 1):S1-S135. Enmanuel Wetzel MD LAB BLOOD ORDERABLES Final Resu lt [facility] [address] [place] [address] * (ABNORMAL) Protime-INR (05/23/2025 9:27 AM EDT) Prothrombin Time 19.7(H) 12.0 - 14.3 sec LAB COAGULATION METHOD 05/23/2025 10:03 AM EDT [facility] INR 1.7(H) 0.9 - 1.1 LAB COAGULATION METHOD 05/23/2025 10:03 AM EDT [facility] Blood Venous blood specimen / Unknown Venipuncture / Unknown 05/23/2025 9:27 AM EDT 05/23/2025 9:41 AM EDT Narrative [facility] - 05/23/2025 10:03 AM EDT OPTIMAL INR RANGES FOR PATIENT ON ORAL ANTICOAGULANT THERAPY Prevention of venous thromboembolism INR 2.0 to 3.0 In patients with heart disease: Atrial fibrillation INR 2.0 to 3.0 Valvular heart disease INR 2.0 to 3.0 Tissue heart valves INR 2.0 to 3.0 Mechanical prosthetic valves INR 2.5 to 3.5 Prevention of recurrent DE INR 2.5 to 3.5 us Gerson Arora MD LAB BLOOD ORDERABLES Final Resul t [facility] [address] [place] [address] * (ABNORMAL) Comprehensive metabolic panel (05/23/2025 9:27 AM EDT) Glucose, Plasma 169(H) 74 - 99 mg/dL 05/23/2025 10:11 AM EDT [facility] BUN, Plasma 23 8 - 23 mg/dL 05/23/2025 10:11 AM EDT [facility] Creatinine, Plasma 1.30(H) 0.60 - 1.10 mg/dL 05/23/2025 10:11 AM EDT [facility] BUN/Creatinine Ratio 18 05/23/2025 10:11 AM EDT [facility] Sodium, Plasma 138 136 - 145 mmol/L 05/23/2025 10:11 AM EDT [facility] Potassium, Plasma 4.7 3.6 - 4.9 mmol/L 05/23/2025 10:11 AM EDT [facility] Chloride, Plasma 107 97 - 107 mmol/L 05/23/2025 10:11 AM EDT [facility] CO2, Plasma 21(L) 22 - 29 mmol/L 05/23/2025 10:11 AM EDT [facility] Anion Gap 10 6 - 16 mmol/L 05/23/2025 10:11 AM EDT [facility] Total Calcium, Plasma 8.6(L) 8.9 - 10.2 mg/dL 05/23/2025 10:11 AM EDT [facility] Total Protein 7.2 6.3 - 7.9 g/dL 05/23/2025 10:11 AM EDT [facility] Albumin, Plasma 3.3(L) 3.5 - 5.2 g/dL 05/23/2025 10:11 AM EDT [facility] AST, Plasma 43(H) 10 - 35 U/L 05/23/2025 10:11 AM EDT [facility] ALT, Plasma 19 10 - 35 U/L 05/23/2025 10:11 AM EDT [facility] Alkaline Phosphatase, Plasma 199(H) 46 - 142 U/L 05/23/2025 10:11 AM EDT [facility] Total Bilirubin, Plasma 3.6(H) 0.2 - 1.1 mg/dL 05/23/2025 10:11 AM EDT [facility] eGFRcr 46.6 mL/min/1.7 3m*2 05/23/2025 10:11 AM EDT [facility] Comment:Reported eGFRcr in m L/min/1.73m2 is based the CKD-EPI 2020 equation that does not use a race coefficient. Blood Venous blood specimen / Unknown Venipuncture / Unknown 05/23/2025 9:27 AM EDT 05/23/2025 9:41 AM EDT us Gerson Arora MD LAB BLOOD ORDERABLES Final Resul t [facility] [address] [place] [address] * (ABNORMAL) CBC w/o differential (05/23/2025 9:27 AM EDT) WBC Count 3.41(L) 3.70 - 10.30 10*3/uL LAB HEMATOLOGY METHOD 05/23/2025 9:52 AM EDT [facility] RBC Count 3.47(L) 3.90 - 5.20 10*6/uL LAB HEMATOLOGY METHOD 05/23/2025 9:52 AM EDT [facility] HGB 10.7(L) 11.2 - 15.7 g/dL LAB HEMATOLOGY METHOD 05/23/2025 9:52 AM EDT [facility] HCT 33.1(L) 34.0 - 45.0 % LAB HEMATOLOGY METHOD 05/23/2025 9:52 AM EDT [facility] Platelet Count 62(L) 155 - 369 10*3/uL LAB HEMATOLOGY METHOD 05/23/2025 9:52 AM EDT [facility] MCV 95 79 - 98 fL LAB HEMATOLOGY METHOD 05/23/2025 9:52 AM EDT [facility] MCH 30.8 26.0 - 32.0 pg LAB HEMATOLOGY METHOD 05/23/2025 9:52 AM EDT [facility] MCHC 32.3 30.7 - 35.5 g/dL LAB HEMATOLOGY METHOD 05/23/2025 9:52 AM EDT [facility] RDW 18.3(H) 11.5 - 14.5 % LAB HEMATOLOGY METHOD 05/23/2025 9:52 AM EDT [facility] MPV 11.8 8.8 - 12.5 fL LAB HEMATOLOGY METHOD 05/23/2025 9:52 AM EDT [facility] nRBC 0.0 <=0.0 per 100 WBCs LAB HEMATOLOGY METHOD 05/23/2025 9:52 AM EDT [facility] Blood Venous blood specimen / Unknown Venipuncture / Unknown 05/23/2025 9:27 AM EDT 05/23/2025 9:45 AM EDT us Gerson Arora MD LAB BLOOD ORDERABLES Final Resul t [facility] [address] [place] [address] documented in this encounter Visit Diagnoses Diagnosis [...] documented as of this encounter Care Teams Hand Mold Maker Relationship Specialty Start Date End Date Alvarez Zimmer MD [address] [place] [address] PCP - General Family Medicine 12/07/24 Lea Fernando [address] [place] [address] Municipal Services Manager Endocrinology 08/29/24 Rachel Ray APRN [address] [place] [address] Nurse Practitioner Gastroenterology 09/24/24 documented as of this encounter
--- OUTSIDE RECORDS SUMMARY | 2025-05-23 08:48 | XMS_ITS | Encounter Summary ---
Author Organization Healthcare Address [address] [place] [address] Care Team Providers Care Customer Support Representative Name Role Phone Lea Fernando Unavailable [phone] Rachel Ray HOOP CUTTER Unavailable [phone] Alvarez Zimmer MD Primary Care Provider [phone] Reason for Referral * Imaging (Routine) - Closed Specialty Diagnoses / Procedures Referred By Contac t Referred To Contact Radiology Diagnoses Other ascites Procedures US Guided Thoracentesis Marianna Gordon APRN [address] [place] [address] Phone: tel: fax: Referral ID Status Reason Start Date Expiration Date Visits Re quested Visits Authorized [id number] Closed 04/26/2025 10/26/2026 1 1 Reason for Visit * Imaging (Routine) - Closed Specialty Diagnoses / Procedures Referred By Contac t Referred To Contact Radiology Diagnoses Other ascites Procedures US Guided Thoracentesis Marianna Gordon APRN [address] [place] [address] Phone: tel: fax: Referral ID Status Reason Start Date Expiration Date Visits Re quested Visits Authorized [id number] Closed 04/26/2025 10/26/2026 1 1 Encounter Details Date Type Department Care Team (Late st Contact Info) Description 05/23/2025 8:48 AM EDT - 05/23/2025 12:18 PM EDT Hospital Encounter [facility] Interventional Radiology [address] [place] [address] Kael Mohan, RN INFECTION PREVENTION & CONTROL [...] week 01/10/2025 How often do you attend [facility] or mormonism services? Patient unable to answer 01/10/2025 Do [...] Recorded Patient Health Questionnaire-2 Score 1 05/07/2025 [facility] Occupat ional Health - Occupational Stress [...] any time in the past 12 m [facility], were you homeless or living in [...] drink first t kennedy in the morning (EYE-RN CLINICAL RESOURCE) to steady your nerves or to get [...] 1 03/01/2025 ergocalciferol (Vitamin D-2) 1.25 MG (77661 UT) capsuleIndications: Vitamin D deficiency Take 1 [...] hyperglycemia, with long-term current use of insulin ([facility]) Inject 0.6 mg under the [...] Appointment [facility] Interventional Radiology [address] [place] [address] 06/27/2025 10:30 AM EDT Appointment [facility] Inter[facility] Radiology [address] [place] [address] 07/04/2025 10:30 AM EDT Appointment [facility] Inter[facility] Radiology [address] [place] [address] 07/04/2025 11:30 AM EDT Appointment [facility] Inter[facility] Radiology [address] [place] [address] 07/09/2025 2:40 PM EDT Office Visit [facility] Bone & Mineral Metabolism [address], [address] [place] [address] Ar Dominique MD [address] [facility] [address] [place] [address] 07/11/2025 10:30 AM EDT Appointment [facility] Interventional Radiology [address] [place] [address] 07/11/2025 11:30 AM EDT Appointment [facility] Inter[facility] Radiology [address] [place] [address] 07/18/2025 10:30 AM EDT Appointment [facility] Radiology [address] [place] [address] 07/18/2025 11:30 AM EDT Appointment [facility] Inter[facility] Radiology [address] [place] [address] 07/25/2025 10:30 AM EDT Appointment [facility] Interventional Radiology [address] [place] [address] 07/25/2025 11:30 AM EDT Appointment [facility] Interventional Radiology [address] [place] [address] 07/31/2025 9:00 AM EDT Office Visit [facility] [address] [place] [address] Alvarez Zimmer MD [address] [place] [address] 08/20/2025 9:30 AM EDT Clinical Support [facility] [place] [address] [address] 08/20/2025 10:30 AM EDT Social Work [facility] [place] [address] [place] [address] Deysi Ortega [place], [place] [phone] 08/20/2025 11:00 AM EDT Office Visit [facility] [place] [address] [facility] [address] [place] [address] Jude Duque MD [address] [place] [address] 10/30/2025 1:20 PM EST Office Visit [facility] Endocrinology [address] [place] [address] Sharif Moreno, ROSY [address] [place] [address] documented as of this encounter [...] hepatic hydrothorax. Patient presents for thoracentesis. TECHNIQUE: Sizing End Bander: ADRI Glasgow Secondary Food Manager: None. Procedure: After discussion of risks and [...] intermittent hepatichydrothorax. Patient presents for thoracentesis. TECHNIQUE: Sizing End Bander: ADRI Glasgow Secondary Food Manager: None. Procedure: After discussion of risks and [...] on 05/26/2025 8:44 PM us Mariannaarelis Gordon HOOP CUTTER IMG US PROCEDURES Final Resu lt documented [...] documented as of this encounter Care Teams Customer Support Representative Relationship Specialty Start Date End Date Alvarez Zimmer MD [address] [place] [address] PCP - General Family Medicine 12/07/24 Lea Fernando [address] [place] [address] House Superintendent Endocrinology 08/29/24 Rachel Ray APRN [address] [place] [address] Nurse Practitioner Gastroenterology 09/24/24 documented as of this encounter
--- OUTSIDE RECORDS SUMMARY | 2025-05-23 12:19 | XMS_ITS | Encounter Summary ---
Author Organization Healthcare Address [address] [place] [address] Care Team Providers Care Director Communications Name Role Phone Lea Fernando Unavailable [phone] Rachel Ray PLATING TECHNICIAN Unavailable [phone] Alvarez Zimmer MD Primary Care Provider [phone] Encounter Details Date Type Department Care Team (Latest Contact Info) Description 05/23/2025 12:19 PM EDT - 05/23/2025 11:59 PM EDT Hospital Encounter [facility] Radiology [address] [place] [address] Discharge Disposition: Home or Self Care Social [...] often do you attend chur ch or episcopalian services? Patient unable to answer 01/10/2025 Do you belong to any clubs o r organizations such as amish groups, unions, fraternal or athletic groups, or [...] Recorded Patient Health Questionnaire-2 Score 1 05/07/2025 [facility] - Occupational Stress Questionnaire Answer [...] place to sleep or slept in a long term (including now)? Yes 08/29/2024 PHQ-9 Answer Date [...] any time in the past 12 m [facility], were you homeless or living in a long term (including now)? No 03/06/2025 CAGE ASSESSMENT Answer [...] drink first t kennedy in the morning (EYE-TABLE GAMES MANAGER) to steady your nerves or to [...] 1 03/01/2025 ergocalciferol (Vitamin D-2) 1.25 MG (93039 UT) capsuleIndications: Vitamin D deficiency Take 1 [...] [facility] Interventional Radiology [address] [place] [address] 06/27/2025 10:30 AM EDT Appointment [facility] Inter[facility] Radiology [address] [place] [address] 07/04/2025 10:30 AM EDT Appointment [facility] Inter[facility] Radiology [address] [place] [address] 07/04/2025 11:30 AM EDT Appointment [facility] Interventional Radiology [address] [place] [address] 07/09/2025 2:40 PM EDT Office Visit [facility] Bone & Mineral Metabolism [address] [facility] [address], [address] [place] [address] Ar Dominique MD [address] [facility] [address] [place] [address] 07/11/2025 10:30 AM EDT Appointment [facility] Inter[facility] Radiology [address] [place] [address] 07/11/2025 11:30 AM EDT Appointment [facility] Inter[facility] Radiology [address] [place] [address] 07/18/2025 10:30 AM EDT Appointment [facility] Interventional Radiology [address] [place] [address] 07/18/2025 11:30 AM EDT Appointment [facility] Interventional Radiology [address] [place] [address] 07/25/2025 10:30 AM EDT Appointment [facility] Inter[facility] Radiology [address] [place] [address] 07/25/2025 11:30 AM EDT Appointment [facility] Inter[facility] Radiology [address] [place] [address] 07/31/2025 9:00 AM EDT Office Visit [address] [place] [address] Alvarez Zimmer MD [address] [place] [address] 08/20/2025 9:30 AM EDT Clinical Support [facility] [place] [address] [place] [address] 08/20/2025 10:30 AM EDT Social Work [facility] [place] [address] [place] [address] [place] [address] 08/20/2025 11:00 AM EDT Office Visit [facility] [place] [address] [place] [address] Jude Duque MD [address] [place] [address] 10/30/2025 1:20 PM EST Office Visit [facility] Endocrinology [address] [place] [address] Sharif Moreno, DPM [address] [place] [address] documented as of this encounter [...] 05/23/2025 12:44 PM us Micheal E Pee PLATING TECHNICIAN, DNP IMG XR PROCEDURES Tari l Result [...] documented as of this encounter Care Teams Director Communications Relationship Specialty Start Date End Date Alvarez Zimmer MD [address] [place] [address] PCP - General Family Medicine 12/07/24 Lea Fernando [address] [place] [address] Trim Setter Helper Endocrinology 08/29/24 Rachel Ray APRN [address] [place] [address] Nurse Practitioner Gastroenterology 09/24/24 documented as of this encounter
--- OUTSIDE RECORDS SUMMARY | 2025-05-30 08:58 | XMS_ITS | Encounter Summary ---
Author Organization Healthcare Address [address] [place] [address] Care Team Providers Care Marble Supervisor Name Role Phone Lea Fernando Unavailable [phone] Rachel Ray TRAINING FACILITATOR Unavailable [phone] Alvarez Zimmer MD Primary Care Provider [phone] Tamera Isabel LPN Unavailable Unavailabl e Reason for Referral * Clinic-Administered Medication (Routine) - Closed Specialty Diagnoses / Procedures Referred By Eder t Referred To Contact Diagnoses Other ascites Procedures LA ABDOM PARACENTESIS DX/THER W IMAGING GUIDANCE Marianna Grodon APRN [address] [place] [address] Phone: tel: fax: [facility] [address] [place] [address] Phone: tel: fax: Referral ID Status Reason Start Date Expiration Date Visits Re quested Visits Authorized [id number] Closed 05/30/2025 11/29/2026 1 1 * Imaging (Routine) - Closed Specialty Diagnoses / Procedures Referred By Eder t Referred To Contact Radiology Diagnoses Other ascites Procedures US Guided Abdominal Paracentesis Marianna Gordon APRN [address] [place] [address] Phone: tel: fax: Referral ID Status Reason Start Date Expiration Date Visits Re quested Visits Authorized [id number] Closed 04/26/2025 10/26/2026 1 1 Reason for Visit * Imaging (Routine) - Closed Specialty Diagnoses / Procedures Referred By Contac t Referred To Contact Radiology Diagnoses Other ascites Procedures US Guided Abdominal Paracentesis Marianna Gordon APRN [address] [place] [address] Phone: tel: fax: Referral ID Status Reason Start Date Expiration Date Visits Re quested Visits Authorized [id number] Closed 04/26/2025 10/26/2026 1 1 Encounter Details Date Type Department Care Team (Late st Contact Info) Description 05/30/2025 8:58 AM EDT - 05/30/2025 11:59 PM EDT Hospital Encounter [facility] Interventional Radiology [address] [place] [address] Shirley Monge RN [facility]-V[facility]ULAR & INTERVENTIONAL RADIOLOGY Other ascites; Type 2 diabetes mellitus with hyperglycemia, with long-term current use of insulin (CMS/HCC); Chronic kidney disease, stage 3b ([facility]/HCC) Discharge Disposition: Home or Self Care Social History Tobacco Use Types Packs/Day Years Used Date Smoking Tobacco: Never Passive Smoke Exposure: Never Smokeless Tobacco: Never Alcohol Use Standard Drinks/Week Comments Not Currently 0 (1 standard drink = 0.6 oz pur e alcohol) Social Connection and Isolation Panel Answer Date Recorded In a typical week, how many times do you talk on the phone with family, friends, or neighbors? Three times a week 01/10/2025 How often do you get togethe r with friends or relatives? Three times a week 01/10/2025 How often do you attend [facility] or yarsani services? Patient unable to answer 01/10/2025 Do you belong to any clubs o r organizations such as jain groups, unions, fraternal or athletic groups, or [...] Recorded Patient Health Questionnaire-2 Score 1 05/07/2025 Housing Stability Vital Sign Answer Rajesh e [...] place to sleep or slept in a longterm (including now)? Yes 08/29/2024 PHQ-9 Answer Date [...] any time in the past 12 m [facility], were you homeless or living in a longterm (including now)? No 03/06/2025 Humiliation, Afraid, Rape, and Kick questionnair e Answer Date Recorded Within the last year, have y ou been afraid of your partner or ex-partner? No 05/29/2025 Within the last year, have y ou been humiliated or emotionally abused in other ways by your partner or ex-partner? No Within the last year, have y ou been kicked, hit, slapped, or otherwise physically hurt by your partner or ex-partner? No 05/29/2025 Within the last year, have y ou been raped or forced to have any kind of sexual activity by your partner or ex-partner? No 05/29/2025 Social Connection and Isolation Panel Answer Date Recorded In a typical week, how many times do you talk on the phone with family, friends, or neighbors? More than three times a week 05/29/2025 How often do you get togethe r with friends or relatives? Once a week 05/29/2025 How often do you attend chur or yarsani services? Never 05/29/2025 Do you belong to any clubs o r organizations such as jain groups, unions, fraternal or athletic groups, or school groups? No 05/29/2025 How often do you attend meet ings of the clubs or organizations you belong to? Never 05/29/2025 Are you , , di vorced, , never , or living with a partner? 05/29/2025 AUDIT-C Answer Date Recorded Q1: How often do you have a drink containing alcohol? Never 05/29/2025 Q2: How many drinks containi ng alcohol do you have on a typical day when you are drinking? Patient does not drink Q3: How often do you have si x or more drinks on one occasion? Never 05/29/2025 [facility] Questionnaire Answer Date Recorded Do you feel stress - tense, restless, nervous, or anxious, or unable to sleep at night because your mind is troubled all the time - these days? Very much 05/29/2025 Exercise Vital Sign Answer Date Recorde d On average, how many days pe r week do you engage in moderate to strenuous exercise (like a brisk walk)? 0 days 05/29/2025 On average, how many minutes do you engage in exercise at this level? 0 min 05/29/2025 Hunger Vital Sign Answer Date Recorded Within the past 12 months, y ou worried that your food would run out before you got the money to buy more. Never true 05/29/20 25 Within the past 12 months, t he food you bought just didn't last and you didn't have money to get more. Never true 05/29/2025 PRAPARE - Transportation Answer Date Re corded In the past 12 months, has l ack of transportation kept you from medical appointments or from getting medications? No 07/2025 In the past 12 months, has l ack of transportation kept you from meetings, work, or from getting things needed for daily living? No 05/29/2025 Housing Stability Vital Sign Answer Rajesh e Recorded In the last 12 months, was t here a time when you were not able to pay the mortgage or rent on time? No 05/29/2025 In the past 12 months, how m any times have you moved where you were living? 0 05/29/2025 At any time in the past 12 m [facility], were you homeless or living in a longterm (including now)? No 05/29/2025 CAGE ASSESSMENT Answer Date Recorded Cage unable [...] drink first t kennedy in the morning (EYE-BOAT OPERATOR) to steady your nerves or to get rid of a hangover? 0 10/22/2024 CAGE Questionnaire Score 0 024 Utilities Answer Date Recorded In the past 12 months has th e Amp[employer], gas, oil, or water [employer] threatened to shut off services in your home? No 05/29/2025 Education Answer Date Recorded What is the [...] Sign Reading Time Taken Comments Blood Pressure 103/60 05/30/2025 11:20 AM EDT Pulse 82 05/30/2025 11:20 AM EDT Temperature 36.4 C (97.5 F) 05/30/2025 11:20 AM EDT Respiratory Rate 19 05/30/2025 11:2 0 AM EDT Oxygen Saturation 99% 05/30/2025 11: 20 AM EDT Inhaled Oxygen Concentration - - Weight 82.5 kg (181 lb 14.1 oz) 05/30/2025 9:45 AM EDT Height 165.1 cm (5' 5 ) 05/30/2025 9:45 AM EDT Body Mass Index 30.27 05/30/2025 9:45 AM EDT documented in this encounter Discharge Instructions * Discharge Instructions* Shirley Monge, RN - 05/30/2025 11:27 AM EDT *Interventional Radiology* (IR) Questions/Concerns & Appointments If there are questions or concerns after discharge please call: Vascular & Interventional Radiology Clinic at [phone] Tuesday - Tuesday 8:00 AM to 4:30 PM After hours, weekends, and holidays please call [phone] and ask for the Interventional Radiology provider/Resident on-call For Emergencies please go to the nearest Emergency Room or dial 911. Intervention Radiology Appointments: If you need to reschedule a procedure, please call our Schedulers at [phone], option 4. If you need to schedule or reschedule a clinic appointment, please call [phone]. [facility] V[facility] and Interventional Radiology Clinic [address], [facility] [place] [id number] documented in this encounter Medications at Time [...] 1 03/01/2025 ergocalciferol (Vitamin D-2) 1.25 MG (05341 UT) capsuleIndications: Vitamin D deficiency Take 1 [...] with long-term current use of insulin ([facility]) Inject 0.6 [...] as of this encounter Miscellaneous Notes * John Vargas - Shirley Monge RN - 05/30/2025 11:27 AM EDT Images from the original note were not included. [id number] Discharge Instructions for Paracentesis Paracentesis is a [...] excess fluid in the abdomen. Home care ?? If you have pain after the procedure, your health care provider can prescribe or recommend pain medicines. Take these exactly as directed. If you stopped taking other medicines before the procedure, ask your provider when you can start them again. ?? Take it easy for 24 hours after the procedure. Don't do any physical activity until your provider says it?s OK. ?? You will have a small bandage over the puncture site. Stitches, surgical armand, adhesive tapes, adhesive strips, or surgical glue may be used to close the cut (incision). They also help stop bleeding and speed healing. You may take the bandage off in 24 hours. ?? Check the puncture site for the signs [...] contact your doctor Contact your provider if: ?? You have a fever of 100.4?? F ( 38??C) or higher, or as directed by your provider. ?? You have chills. ?? You have trouble breathing. ?? Your pain doesn't go away even after taking pain medicine. ?? You have belly pain not caused by having the skin punctured. ?? You are bleeding from the puncture site. ?? More than a small amount of fluid is leaking from the puncture site. ?? Your belly is swollen. ?? You have signs of infection at the puncture site. These include increased pain, redness, or swelling, warmth, or bad-smelling drainage. ?? There's blood in your urine. ?? You are feeling dizzy or lightheaded, or fainting. Last Reviewed Date: 2025 00:00:00 ?? [id number] [employer]. All rights reserved. This information is not intended as a substitute for professional medical care. Always follow your healthcare professional's instructions. * Post-Procedure Note - Marianna Gordon APRN - 05/30/2025 9:30 AM EDT Vascular and Interventional Radiology Brief Postprocedure Note Performed by: Marianna Gordon APRN Chief Deputy: LOUISE Pre-operative Diagnosis: ascites Post-operative Diagnosis: same Type of Anesthesia: Local Description of Findings: ascites. No right pleural effusion Technical/Surgical Procedures Used: image guided paracentesis Specimen Obtained: Yes, cell count Complications: None Estimated Blood Loss: none Procedure Events Event Event Time See detailed result report with images in PACS. The patient tolerated the procedure well without incident or complication and is in stable condition. * Interval H&P Note - Marianna Gordon APRN - 05/30/2025 9:30 AM EDT H&P Reviewed. No new changes Source Note - Shaniqua [...] Total DLP (Dose-Length Product): 1722.82 mGy.cm (accession [id number]), 1722.82 mGy.cm (accession [id number]). Please note: The reported value represents the [...] no aneurysm of either internal carotid artery. [place] and Major Peripheral Branches: There [...] is no recent study available for direct pvkp-co-nhti comparison. Assessment & Plan: Decompensated MASH cirrhosis [...] the care of this patient. Shaniqua Mccurdy, TRAINING FACILITATOR Interventional Radiology [phone] [1] Past Medical History: Diagnosis Date ADHD (attention deficit hyperactivity disorder) Allergic Anxiety disorder, unspecified Anxiety Bleeding gums Blood in urine Cataract Chronic kidney disease Cirrhosis (CMS/HCC) Colon cancer screening 09/20/2019 Added automatically from request for surgery [id number] Coronary artery disease Depression 1995 Diabetes mellitus [...] 1979 BLADDER SURGERY N/A Bladder surgery from [facility] BREAST BIOPSY 2011 BREAST SURGERY 2010 BUNIONECTOMY Right CATARACT EXTRACTION Bilateral 2016 CHOLECYSTECTOMY 1979 ESOPHAGOGASTRODUODENOSCOPY HYSTERECTOMY N/A Hysterectomy from [facility] KNEE SURGERY Bilateral ORAL SURGERY N/A Oral surgery from [facility] OTHER SURGICAL HISTORY 2015 ROOT CANAL WISDOM [...] Rfl: 1 ergocalciferol (Vitamin D-2) 1.25 MG (02086 UT) capsule, Take 1 capsule by mouth [...] at a time per patient request, Disp: 05586 mL, Rfl: 11 omeprazole (PriLOSEC) 40 MG [...] Appointment [facility] Interventional Radiology [address] [place] [address] 06/27/2025 10:30 AM EDT Appointment [facility] Interventional Radiology [address] [place] [address] 07/04/2025 10:30 AM EDT Appointment [facility] Interventional Radiology [address] [place] [address] 07/04/2025 11:30 AM EDT Appointment [facility] Interventional Radiology [address] [place] [address] 07/09/2025 2:40 PM EDT Office Visit [facility] [address], [address] [place] [address] Ar Dominique MD [address] [place] [address] 07/11/2025 10:30 AM EDT Appointment [facility] Interventional Radiology [address] [place] [address] 07/11/2025 11:30 AM EDT Appointment [facility] Interventional Radiology [address] [place] [address] 07/18/2025 10:30 AM EDT Appointment [facility] Inter[facility] Radiology [address] [place] [address] 07/18/2025 11:30 AM EDT Appointment [facility] Inter[facility] Radiology [address] [place] [address] 07/25/2025 10:30 AM EDT Appointment [facility] Inter[facility] Radiology [address] [place] [address] 07/25/2025 11:30 AM EDT Appointment [facility] Interventional Radiology [address] [place] [address] 07/31/2025 9:00 AM EDT Office Visit [facility] [address] [place] [address] Alvarez Zimmer MD [address] [place] [address] 08/20/2025 9:30 AM EDT Clinical Support [facility] [address] [facility] [address] [place] [address] 08/20/2025 10:30 AM EDT Social Work [facility] [address] [place] [address] Deysi Ortega [place], [place] [id number] 08/20/2025 11:00 AM EDT Office Visit [facility] [address] [place] [address] Jude Duque MD [address] [place] [address] 10/30/2025 1:20 PM EST Office Visit [facility] [address] [place] [address] Sharif Moreno, ROSY [address] [place] [address] documented as of this encounter Procedures Procedure Name Priority Date/Time Associated Diagnosis Comments US GUIDED ABDOMINAL PARACENTESIS Routine 05/30/2025 11:15 AM EDT Other ascites US CHEST Routine 05/30/2025 11:15 AM EDT Other ascites BODY FLUID CELL COUNT W/ MANUAL DIFFERENTIAL Routine 05/30/2025 10:25 AM EDT BODY FLUID, CYTOSPIN, PATHOLOGIST INTERPRETATION Routine 05/30/2025 10:25 AM EDT TOTAL PROTEIN, PERITONEAL FLUID Routine 05/30/2025 10:25 AM EDT INSULIN, RANDOM Routine 05/30/2025 9:59 AM EDT Type 2 diabetes mellitus with hyperglycemia, with long-term current use of insulin ([facility]) BASIC METABOLIC PANEL, PLASMA Routine 05/30/2025 9:59 AM EDT Type 2 diabetes mellitus with hyperglycemia, with long-term current use of insulin (CMS/HCC) Chronic kidney disease, stage 3b (CMS/HCC) documented in this encounter Results * US Chest (05/30/2025 11:15 AM EDT) Anatomical Region Laterality Modality Chest Ultrasound Impressions 05/30/2025 7:47 PM EDT Aborted examination. CRITICAL RESULT: No. COMMUNICATION: Per this written report. Preliminary report signed by SOLANGE Omalley on 05/30/2025 1:29 PM By electronically signing this report, I, the attending physician, attest that I was not present for the procedure(s) but agree with the final edited report. Drafted by SOLANGE Omalley on 05/30/2025 1:28 PM Final report signed by Ck Palacios MD on 05/30/2025 7:47 PM Narrative 05/30/2025 7:47 PM EDT CLINICAL INDICATION: Gabi Zimmer is a 64 y.o. 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 TECHNIQUE: The original examination requested was thoracentesis; however, the study was aborted and was not performed. COMPARISON: None. FINDINGS: Trace right pleural effusion, no indication for thoracentesis. Procedure Note Ck Palacios MD - 05/30/2025 CLINICAL INDICATION: Gabi Zimmer is a 64 y.o. 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 TECHNIQUE: The original examination requested was thoracentesis; however, the studywas aborted and was not performed. COMPARISON: None. FINDINGS: Trace right pleural effusion, no indication for thoracentesis. IMPRESSION: Aborted examination. CRITICAL RESULT: No. COMMUNICATION: Per this written report. Preliminary report signed by SOLANGE Omalley on 05/30/2025 1:29 PM By electronically signing this report, I, the attending physician, attestthat I was not present for the procedure(s) but agree with the finaledited report. Drafted by SOLANGE Omalley on 05/30/2025 1:28 PM Final report signed by Ck Palacios MD on 05/30/2025 7:47 PM us Marianna Gordon APRN IMG US PROCEDURES Final Resu lt * US Guided Abdominal Paracentesis (05/30/2025 11:15 AM EDT) Anatomical Region Laterality Modality Abdomen Ultrasound Impressions 05/30/2025 7:47 PM EDT Technically successful US-guided paracentesis. A total of 7.1 liters of clear yellow fluid was removed. A sample of the fluid was sent for laboratory analysis. Administered Albumin 50 g IV once post procedure CRITICAL RESULT: No. COMMUNICATION: Per this written report. Preliminary report signed by SOLANGE Omalley on 05/30/2025 1:28 PM By electronically signing this report, I, the attending physician, attest that I was not present for the procedure(s) but agree with the final edited report. Drafted by SOLANGE Omalley on 05/30/2025 1:27 PM Final report signed by Ck Palacios MD on 05/30/2025 7:47 PM Narrative 05/30/2025 7:47 PM EDT CLINICAL INDICATION: Gabi Zimmer is a 64 y.o. 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 TECHNIQUE: Fisheries Management Biologist: Marianna Gordon APRN Secondary Communications Scientist: None. Nurse: Bao Technologist: Kalina Phillips Dose: NA Medications: Continuous physiologic monitoring provided by a qualified healthcare professional. Administered: 1% Lidocaine SQ. Antibiotics: NA Time out: 1021 Procedure: After discussion of risks and benefits, [...] permanent storage in PACS. A total of 7.1 liters of clear yellow fluid was removed. The centesis catheter was removed and occlusive dressing applied. The patient tolerated the procedure well. The patient left the IR suite in stable condition. COMPARISON: None. FINDINGS: Large volume ascites. COMPLICATION: No. Procedure Note Ck Palacios MD - 05/30/2025 CLINICAL INDICATION: Gabi Zimmer is a 64 y.o. 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 TECHNIQUE: Fisheries Management Biologist: Marianna Gordon APRN Secondary Communications Scientist: None. Nurse: Bao Technologist: Kalina Phillips Dose: NA Medications: Continuous physiologic monitoring provided by a qualifiedhealthcare professional. Administered: 1% Lidocaine SQ. Antibiotics: NA Time out: 1021 Procedure: After discussion of risks and benefits, [...] to permanentstorage in PACS. A total of 7.1 liters of clear yellow fluid was removed.The centesis catheter was removed and occlusive dressing applied. The patient tolerated the procedure well. The patient left the IR suitein stable condition. COMPARISON: None. FINDINGS: Large volume ascites. COMPLICATION: No. IMPRESSION: Technically successful US-guided paracentesis. A total of 7.1 liters of clear yellow fluid was removed. A sample of the fluid was sent for laboratory analysis. Administered Albumin 50 g IV once post procedure CRITICAL RESULT: No. COMMUNICATION: Per this written report. Preliminary report signed by SOLANGE Omalley on 05/30/2025 1:28 PM By electronically signing this report, I, the attending physician, attestthat I was not present for the procedure(s) but agree with the finaledited report. Drafted by SOLANGE Omalley on 05/30/2025 1:27 PM Final report signed by Ck Palacios MD on 05/30/2025 7:47 PM us Marianna Gordon TRAINING FACILITATOR IMG US PROCEDURES Final Resu lt * Body fluid, cytospin, pathologist interpretation (05/30/2025 10:25 AM EDT) Specimen Type Body Fluid LAB HEMATOLOGY METHOD 05/31/2025 12:24 PM EDT [facility] Specimen Source, Body Fluid Peritoneal Fluid LAB HEMATOLOGY METHOD 05/31/2025 12:24 PM EDT [facility] Clinical Diagnosis, Body Fluid Ascites LAB HEMATOLOGY METHOD 05/31/2025 12:24 PM EDT [facility] Interpretation , Body Fluid No evidence of malignancy Chronic inflammatory cells Lymphocytosis Light blood A resident was involved in the service. I attest I examined the relevant preparations for the specimens and confirmed the diagnosis or interpretation. 05/31/2025 12:24 PM EDT [facility] Pathologist Signature, Body Fluid 05/31/2025 12:24 PM EDT [facility] Comment:Reviewed by: Kadie dobbs MD LAB CP ASR DISCLAIMER Yes 05/31/2025 12:24 PM EDT [facility] Body Fluid Peritoneal fluid / Unknown Non-blood Collection / Unknown 05/30/2025 10:25 AM EDT 05/30/2025 10:52 AM EDT Marianna N Cheeks TRAINING FACILITATOR LAB BODY FLUIDS AND STOOLS O RDERABLES Final Result Performing Organization Address [facility] de Phone Number [facility] [address] [place] [address] * Protein - Ascites (05/30/2025 10:25 AM EDT) Total Protein, Fluid 1 g/dL 05/30/2025 11:33 AM EDT [facility] Ascites Peritoneal cavity structure / Unknown 05/30/2025 10:25 AM EDT 05/30/2025 10:52 AM EDT Narrative [facility] - 05/30/2025 11:33 AM EDT This test was developed and its performance characteristics determined by [facility]. The U.S. Food and Drug Administration has not approved or cleared this test. However, FDA clearance or approval is not currently required for clinical use. The results are not intended to be used as the sole means for clinical diagnosis or patient management decisions. Marianna N Evan TRAINING FACILITATOR LAB BODY FLUIDS AND STOOLS O RDERABLES Final Result Performing Organization Address [facility] Co de Phone Number [facility] [address] [place] [address] * (ABNORMAL) Body Fluid Cell Count With Diff - Ascites (05/30/2025 10:25 AM EDT) Color, Body fluid [place] LAB HEMATOLOGY METHOD 05/30/2025 4:32 PM EDT [facility] Appearance, Body fluid Cloudy(A) LAB HEMATOLOGY METHOD 05/30/2025 4:32 PM EDT [facility] Volume, Body fluid 9.0 cc LAB HEMATOLOGY METHOD 05/30/2025 4:32 PM EDT [facility] Fluid Container Tube 1 LAB HEMATOLOGY METHOD 05/30/2025 4:32 PM EDT [facility] Red Blood Cell Count, Body fluid 6,000 uL LAB HEMATOLOGY METHOD 05/30/2025 4:32 PM EDT [facility] Total Nucleated Cell Count, Body fluid 115 uL LAB HEMATOLOGY METHOD 05/30/2025 4:32 PM EDT [facility] Neutrophils %, Body fluid 1 % LAB HEMATOLOGY METHOD 05/30/2025 4:32 PM EDT [facility] Lymphocytes %, Body fluid 96 % LAB HEMATOLOGY METHOD 05/30/2025 4:32 PM EDT [facility] Monocytes/Macro phages %, Body fluid 3 % LAB HEMATOLOGY METHOD 05/30/2025 4:32 PM EDT [facility] Eosinophils %, Body fluid 0 % LAB HEMATOLOGY METHOD 05/30/2025 4:32 PM EDT [facility] Lining/Mesothel ial Cells %, Body fluid 0 % LAB HEMATOLOGY METHOD 05/30/2025 4:32 PM EDT [facility] Neutrophils Absolute (PMN), Body fluid 1 uL LAB HEMATOLOGY METHOD 05/30/2025 4:32 PM EDT [facility] Lymphocytes Absolute, Body fluid 110 uL LAB HEMATOLOGY METHOD 05/30/2025 4:32 PM EDT [facility] Monocytes/Macro phages Absolute, Body fluid 3 uL LAB HEMATOLOGY METHOD 05/30/2025 4:32 PM EDT [facility] Eosinophils Absolute, Body fluid 0 uL LAB HEMATOLOGY METHOD 05/30/2025 4:32 PM EDT [facility] Basophils Absolute, Body fluid 0 uL LAB HEMATOLOGY METHOD 05/30/2025 4:32 PM EDT [facility] Lining/Mesothel ial Cells Absolute, Body fluid 0 uL LAB HEMATOLOGY METHOD 05/30/2025 4:32 PM EDT [facility] Basophils %, Body fluid 0 % LAB HEMATOLOGY METHOD 05/30/2025 4:32 PM EDT [facility] Body Fluid Peritoneal fluid / Unknown Non-blood Collection / Unknown 05/30/2025 10:25 AM EDT 05/30/2025 10:52 AM EDT us Marianna Gordon TRAINING FACILITATOR LAB BODY FLUIDS AND STOOLS ORDERABLES NO SPECIMEN TYPE/SOURCE Final Result [facility] [address] [place] [address] * (ABNORMAL) Basic metabolic panel (05/30/2025 9:59 AM EDT) Glucose, Plasma 199(H) 74 - 99 mg/dL 05/30/2025 10:49 AM EDT [facility] BUN, Plasma 29(H) 8 - 23 mg/dL 05/30/2025 10:49 AM EDT [facility] Creatinine, Plasma 1.44(H) 0.60 - 1.10 mg/dL 05/30/2025 10:49 AM EDT [facility] BUN/Creatinine Ratio 20 05/30/2025 10:49 AM EDT [facility] Sodium, Plasma 140 136 - 145 mmol/L 05/30/2025 10:49 AM EDT [facility] Potassium, Plasma 5.0(H) 3.6 - 4.9 mmol/L 05/30/2025 10:49 AM EDT [facility] Chloride, Plasma 108(H) 97 - 107 mmol/L 05/30/2025 10:49 AM EDT [facility] CO2, Plasma 19(L) 22 - 29 mmol/L 05/30/2025 10:49 AM EDT [facility] Anion Gap 13 6 - 16 mmol/L 05/30/2025 10:49 AM EDT [facility] Total Calcium, Plasma 8.6(L) 8.9 - 10.2 mg/dL 05/30/2025 10:49 AM EDT [facility] eGFRcr 41.2 mL/min/1.7 3m*2 05/30/2025 10:49 AM EDT [facility] Comment:Reported eGFRcr in m L/min/1.73m2 is based the CKD-EPI 2020 equation that does not use a race coefficient. Blood Venous blood specimen / Unknown Venipuncture / Unknown 05/30/2025 9:59 AM EDT 05/30/2025 10:16 AM EDT us Enmanuel Wetzel MD LAB BLOOD ORDERABLES Final Resu lt [facility] [address] [place] [address] * (ABNORMAL) Insulin, random (05/30/2025 9:59 AM EDT) Insulin 32.7(H) 3.0 - 16.0 uU/mL 05/30/2025 12:00 PM EDT [facility] Blood Venous blood specimen / Unknown Venipuncture / Unknown 05/30/2025 9:59 AM EDT 05/30/2025 10:16 AM EDT us Enmanuel Wetzel MD LAB BLOOD ORDERABLES Final Resu lt [facility] [address] [place] [address] documented in this encounter Visit Diagnoses Diagnosis Other ascites Type 2 diabetes mellitus with hyperglycemia, with long-term current use of insulin (CMS/HCC) Chronic kidney disease, stage 3b (CMS/HCC) documented in this encounter Administered Medications Inactive Administered Medications - up to 3 most recent administrations Medication Order MAR Action Action Date Dose Rate Site albumin human 25 % infusion 12.5 g 12.5 g, Intravenous, Every 15 min PRN, 5 doses, Starting on Sarahi 05/30/25 at 0959, Until Tue05/31/25 at 0238, Routine, Give additional 12.5 g doses per albumin replacement chart New Bag 05/30/2025 11:10 AM EDT 12.5 g albumin human 25 % infusion 37.5 g 37.5 g, Intravenous, Once as needed, 1 dose, Starting on Sarahi 05/30/25 at 0959, Until Sarahi 05/30/25 at 1038, Routine, For 5-6.9 L drained New Bag 05/30/2025 10:38 AM EDT 37.5 g lidocaine (Xylocaine) 1 % injection Intradermal, As needed, Starting on Sarahi 05/30/25 at 1023, Until Sarahi 05/30/25 at 1023, Routine, Intraprocedure Given 05/30/2025 10:23 AM EDT 10 mL documented in this encounter Additional Health Concerns Assessment Noted Time PHQ-9 Depression Total Score: 0 03/06/20 25 1:21 PM EDT A fall risk assessment has been complete d for the patient 05/29/2025 2:34 PM EDT A Body Mass Index follow-up plan has been documented for the patient 05/30/2025 11:28 AM EDT documented as of this encounter Care Teams Marble Supervisor Relationship Specialty Start Date End Date Alvarez Zimmer MD [address] [place] [address] PCP - General Family Medicine 12/07/24 Lea Fernando [address] [place] [address] Weight Clerk Endocrinology 08/29/24 Rachel Ray APRN [address] [facility] [address] [place] [address] Nurse Practitioner Gastroenterology 09/24/24 Tamera Isabel LPN VALUE-BASED TRANSFORMATION PROGRAM Licensed Practical Nurse 05/29/25 documented as of this encounter
--- OUTSIDE RECORDS SUMMARY | 2025-05-31 12:36 | XMS_ITS | Encounter Summary ---
Author Organization Healthcare Address [address] [place], [place] [id number] Care Team Providers Care Professional Tutor Name Role Phone Lea Fernando Unavailable [phone] Rachel Ray CULTURE MEDIA LABORATORY ASSISTANT Unavailable [phone] Alvarez Zimmer MD Primary Care Provider [phone] Tamera Isabel BUTADIENE COMPRESSOR OPERATOR Unavailable Unavailabl e Reason for Visit * Reason Comments Difficulty Urinating Weakness - Generalized Encounter Details Date Type Department Care Team ([facility] st Contact Info) Description 05/31/2025 12:36 PM EDT - 05/31/2025 8:07 PM EDT Emergency [facility] Emergency Department [address] [place] [address] Torrie Turner MD [address] [place] [phone] Irina Hernandez MD [address] [place] [phone] Altered mental status, unspecified altered mental [...] How often do you attend chur or religion services? Patient unable to answer 01/10/2025 Do you belong to any clubs o r organizations such as congregational groups, unions, fraternal or athletic groups, or [...] to sleep or slept in a senior living (including now)? Yes 08/29/2024 PHQ-9 Answer Date [...] any time in the past 12 m [facility], were you homeless or living in a senior living (including now)? No 03/06/2025 Humiliation, Afraid, Rape, [...] week 05/29/2025 How often do you attend [facility] or religion services? Never 05/29/2025 Do you belong to any clubs o r organizations such as congregational groups, unions, fraternal or athletic groups, or [...] more drinks on one occasion? Never 05/29/2025 [facility] [place] [facility] Occupat ional Health - Occupational Stress [...] any time in the past 12 m [facility], were you homeless or living in a senior living (including now)? 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 60 tablet 2 05/07/2025 [place] 0.6 MG/0.6ML solution auto-injectorIndica tions:Type 2 [...] culture (IF UTI SUSPECTED) STAT Final result RIINA HERNANDEZ 05/31/25 1842 Urinalysis with reflex microscopic [...] at home. Patient remained hemodynamically stable. All q uestions and concerns were discussed prior to discharge. [...] concerned for your health. Disposition Discharge AVS ([place] Snapshot) - Printed 05/31/2025 - [1] Past Medical History: Diagnosis Date ADHD (attention deficit hyperactivity disorder) Allergic Anxiety disorder, unspecified Anxiety Bleeding gums Blood in urine Cataract Chronic kidney disease Cirrhosis (CMS/HCC) Colon cancer screening 09/20/2019 Added automatically from request for surgery [id number] Coronary artery disease Depression 1995 Diabetes mellitus [...] 1979 BLADDER SURGERY N/A Bladder surgery from [facility] BREAST BIOPSY 2011 BREAST SURGERY 2010 BUNIONECTOMY Right CATARACT EXTRACTION Bilateral 2016 CHOLECYSTECTOMY 1980 ESOPHAGOGASTRODUODENOSCOPY HYSTERECTOMY N/A Hysterectomy from [facility] KNEE SURGERY Bilateral ORAL SURGERY N/A Oral surgery from [facility] OTHER SURGICAL HISTORY 2015 ROOT CANAL WISDOM [...] Pt lives alone but walked to a neighbors house to call for help due to [...] Appointment [facility] Interventional Radiology [address] [place] [address] 06/27/2025 10:30 AM EDT Appointment [facility] Interventional Radiology [address] [place] [address] 07/04/2025 10:30 AM EDT Appointment [facility] Interventional Radiology [address] [place] [address] 07/04/2025 11:30 AM EDT Appointment [facility] Interventional Radiology [address] [place] [address] 07/09/2025 2:40 PM EDT Office Visit [facility] [address] [facility], [address] [place] [address] Ar Dominique MD [address] [place] [address] 07/11/2025 10:30 AM EDT Appointment [facility] Interventional Radiology [address] [place] [address] 07/11/2025 11:30 AM EDT Appointment [facility] Interventional Radiology [address] [place] [address] 07/18/2025 10:30 AM EDT Appointment [facility] Interventional Radiology [address] [place] [address] 07/18/2025 11:30 AM EDT Appointment [facility] Inter[facility] Radiology [address] [place] [address] 07/25/2025 10:30 AM EDT Appointment [facility] Interventional Radiology [address] [place] [address] 07/25/2025 11:30 AM EDT Appointment [facility] Interventional Radiology [address] [place] [address] 07/31/2025 9:00 AM EDT Office Visit [facility] [address] [place] [address] Alvarez Zimmer MD [address] [place] [address] 08/20/2025 9:30 AM EDT Clinical Support [facility] [place] [address] [place] [address] 08/20/2025 10:30 AM EDT Social Work [facility] [place] [address] [place] [address] [place] [address] 08/20/2025 11:00 AM EDT Office Visit [facility] [place] [address] [place] [address] Jude Duque MD [address] [place] [address] 10/30/2025 1:20 PM EST Office Visit [facility] [address] [place] [address] Sharif Moreno, ROSY [address] [place] [address] documented as of this encounter [...] MD LAB URINE ORDERABLES Final Re sult [facility] [address] [place] [address] * Urine Subramanian Panel (05/31/2025 6:43 PM EDT) Extra Reflex urine culture not indicated 05/31/2025 9:01 PM EDT [facility] Urine Urine specimen obtained by clean catch procedure / Unknown Non-blood Collection / Unknown 05/31/2025 6:43 PM EDT 05/31/2025 7:14 PM EDT us Irina Hernandez MD LAB URINE ORDERABLES Final Re sult [facility] [address] [place] [address] * (ABNORMAL) Urinalysis with reflex microscopic (Culture NOT Included) (05/31/2025 6:43 PM EDT) Pathologist [facility] Color, Urine Dark Yellow LAB URINALYSIS - AUTOMATED METHOD 05/31/2025 7:27 PM EDT [facility] Clarity, Urine Clear LAB URINALYSIS - AUTOMATED METHOD 05/31/2025 7:27 PM EDT [facility] Spec Sherman, Urine 1.029 1.005 - 1.030 LAB URINALYSIS - AUTOMATED METHOD 05/31/2025 7:27 PM EDT [facility] pH, Urine <=5.0(L) 5.0 - 8.0 LAB URINALYSIS - AUTOMATED METHOD 05/31/2025 7:27 PM EDT [facility] Protein, Urine Trace(A) Negative mg/dL LAB URINALYSIS - AUTOMATED METHOD 05/31/2025 7:27 PM EDT [facility] Glucose, Urine Negative Negative mg/dL LAB URINALYSIS - AUTOMATED METHOD 05/31/2025 7:27 PM EDT [facility] Ketones, Urine Trace(A) Negative mg/dL LAB URINALYSIS - AUTOMATED METHOD 05/31/2025 7:27 PM EDT [facility] Blood, Urine Small(A) Negative LAB URINALYSIS - AUTOMATED METHOD 05/31/2025 7:27 PM EDT [facility] Bilirubin, Urine Small(A) Negative LAB URINALYSIS - AUTOMATED METHOD 05/31/2025 7:27 PM EDT [facility] Urobilinogen, Urine 1.0 0.2 to 1.0 mg/dL LAB URINALYSIS - AUTOMATED METHOD 05/31/2025 7:27 PM EDT [facility] Leukocytes, Urine Trace(A) Negative LAB URINALYSIS - AUTOMATED METHOD 05/31/2025 7:27 PM EDT [facility] Nitrite, Urine Negative Negative LAB URINALYSIS - AUTOMATED METHOD 05/31/2025 7:27 PM EDT [facility] RBC, Urine 4 - 10(A) 0 to 3 /HPF LAB URINALYSIS - AUTOMATED METHOD 05/31/2025 7:27 PM EDT [facility] Comment:This result was prev iously suppressed from the chart. WBC, Urine 0 - 5 0 to 5 /HPF LAB URINALYSIS - AUTOMATED METHOD 05/31/2025 7:27 PM EDT [facility] Comment:This result was prev iously suppressed from the chart. Squamous Epithelial Cells 3 - 5 0 to 5 /HPF LAB URINALYSIS - AUTOMATED METHOD 05/31/2025 7:27 PM EDT [facility] Comment:This result was prev iously suppressed from the chart. Hyaline Casts 3 - 5 0 to 5 /LPF LAB URINALYSIS - AUTOMATED METHOD 05/31/2025 7:27 PM EDT [facility] Comment:This result was prev iously suppressed from the chart. Bacteria, Urine Negative Negative LAB URINALYSIS - AUTOMATED METHOD 05/31/2025 7:27 PM EDT [facility] Comment:This result was prev iously suppressed from the chart. Urine Urine specimen obtained by clean catch procedure / Unknown Non-blood Collection / Unknown 05/31/2025 6:43 PM EDT 05/31/2025 6:46 PM EDT us Irina Hernandez MD LAB URINE ORDERABLES Final Re sult [facility] [address] [place] [address] * Ammonia (05/31/2025 4:01 PM EDT) Ammonia 39 11 - 51 umol/L 05/31/2025 4:55 PM EDT [facility] Blood Venous blood specimen / Unknown Venipuncture / Unknown 05/31/2025 4:01 PM EDT 05/31/2025 4:11 PM EDT Torrie Turner MD LAB BLOOD ORDERABLES Final Resu lt Performing Organization Address [facility] Co de Phone Number [facility] [address] [place] [address] * (ABNORMAL) PT-INR (05/31/2025 4:01 PM EDT) Prothrombin Time 22.1(H) 12.0 - 14.3 sec 05/31/2025 4:21 PM EDT [facility] INR 2.0(H) 0.9 - 1.1 05/31/2025 4:21 PM EDT [facility] Blood Venous blood specimen / Unknown Venipuncture / Unknown 05/31/2025 4:01 PM EDT 05/31/2025 4:06 PM EDT Narrative [facility] - 05/31/2025 4:21 PM EDT OPTIMAL INR RANGES FOR PATIENT ON ORAL ANTICOAGULANT THERAPY Prevention of venous thromboembolism INR 2.0 to 3.0 In patients with heart disease: Atrial fibrillation INR 2.0 to 3.0 Valvular heart disease INR 2.0 to 3.0 Tissue heart valves INR 2.0 to 3.0 Mechanical prosthetic valves INR 2.5 to 3.5 Prevention of recurrent TN INR 2.5 to 3.5 Torrie Turner MD LAB BLOOD ORDERABLES Final Resu lt Performing Organization Address [facility] Co de Phone Number [facility] [address] [place] [address] * (ABNORMAL) CBC w/diff (05/31/2025 4:01 PM EDT) WBC Count 2.85(L) 3.70 - 10.30 10*3/uL LAB HEMATOLOGY METHOD 05/31/2025 4:08 PM EDT [facility] RBC Count 2.79(L) 3.90 - 5.20 10*6/uL LAB HEMATOLOGY METHOD 05/31/2025 4:08 PM EDT [facility] HGB 8.7(L) 11.2 - 15.7 g/dL LAB HEMATOLOGY METHOD 05/31/2025 4:08 PM EDT [facility] HCT 26.3(L) 34.0 - 45.0 % LAB HEMATOLOGY METHOD 05/31/2025 4:08 PM EDT [facility] Platelet Count 44(L) 155 - 369 10*3/uL LAB HEMATOLOGY METHOD 05/31/2025 4:08 PM EDT [facility] MCV 94 79 - 98 fL LAB HEMATOLOGY METHOD 05/31/2025 4:08 PM EDT [facility] MCH 31.2 26.0 - 32.0 pg LAB HEMATOLOGY METHOD 05/31/2025 4:08 PM EDT [facility] MCHC 33.1 30.7 - 35.5 g/dL LAB HEMATOLOGY METHOD 05/31/2025 4:08 PM EDT [facility] RDW 18.5(H) 11.5 - 14.5 % LAB HEMATOLOGY METHOD 05/31/2025 4:08 PM EDT [facility] MPV 10.3 8.8 - 12.5 fL LAB HEMATOLOGY METHOD 05/31/2025 4:08 PM EDT [facility] nRBC 0.0 <=0.0 per 100 WBCs LAB HEMATOLOGY METHOD 05/31/2025 4:08 PM EDT [facility] Differential Type Automated LAB HEMATOLOGY METHOD 05/31/2025 4:08 PM EDT [facility] Neutrophils % 57 % LAB HEMATOLOGY METHOD 05/31/2025 4:08 PM EDT [facility] Lymphocytes % 24 % LAB HEMATOLOGY METHOD 05/31/2025 4:08 PM EDT [facility] Monocytes % 14 % LAB HEMATOLOGY METHOD 05/31/2025 4:08 PM EDT [facility] Eosinophils % 4 % LAB HEMATOLOGY METHOD 05/31/2025 4:08 PM EDT [facility] Basophils % 1 % LAB HEMATOLOGY METHOD 05/31/2025 4:08 PM EDT [facility] Immature Granulocytes % 0 % LAB HEMATOLOGY METHOD 05/31/2025 4:08 PM EDT [facility] Neutrophils Absolute 1.63 1.60 - 6.10 10*3/uL LAB HEMATOLOGY METHOD 05/31/2025 4:08 PM EDT [facility] Lymphocytes Absolute 0.68(L) 1.20 - 3.90 10*3/uL LAB HEMATOLOGY METHOD 05/31/2025 4:08 PM EDT [facility] Monocytes Absolute 0.40 0.30 - 0.90 10*3/uL LAB HEMATOLOGY METHOD 05/31/2025 4:08 PM EDT [facility] Eosinophils Absolute 0.11 0.00 - 0.50 10*3/uL LAB HEMATOLOGY METHOD 05/31/2025 4:08 PM EDT [facility] Basophils Absolute 0.03 0.00 - 0.10 10*3/uL LAB HEMATOLOGY METHOD 05/31/2025 4:08 PM EDT [facility] Immature Granulocytes Absolute 0.00 0.00 - 0.06 10*3/uL LAB HEMATOLOGY METHOD 05/31/2025 4:08 PM EDT [facility] Blood Venous blood specimen / Unknown Venipuncture / Unknown 05/31/2025 4:01 PM EDT 05/31/2025 4:06 PM EDT Narrative [facility] - 05/31/2025 4:08 PM EDT Therapeutic decision making should be based on absolute values, rather than percentages. Torrie Turner MD LAB BLOOD ORDERABLES Final Resu lt [facility] [address] [place] [address] * (ABNORMAL) Blood gas panel, venous (05/31/2025 4:01 PM EDT) pH, Venous 7.41 7.32 - 7.43 LAB HEMATOLOGY METHOD 05/31/2025 4:07 PM EDT [facility] pCO2, Venous 35(L) 37 - 52 mmHg LAB HEMATOLOGY METHOD 05/31/2025 4:07 PM EDT [facility] pO2, Venous 28 25 - 40 mmHg LAB HEMATOLOGY METHOD 05/31/2025 4:07 PM EDT [facility] SO2, Measured, Venous 45(L) 65 - 80 % LAB HEMATOLOGY METHOD 05/31/2025 4:07 PM EDT [facility] Base Excess, Venous -2.0 -2.0 - 3.0 mmol/L LAB HEMATOLOGY METHOD 05/31/2025 4:07 PM EDT [facility] Bicarbonate, Calculated, Venous 22 22 - 26 mmol/L LAB HEMATOLOGY METHOD 05/31/2025 4:07 PM EDT [facility] Hematocrit, Whole Blood 27.5(L) 34.0 - 45.0 % LAB HEMATOLOGY METHOD 05/31/2025 4:07 PM EDT [facility] Sodium, Whole Blood 142 136 - 145 mmol/L LAB HEMATOLOGY METHOD 05/31/2025 4:07 PM EDT [facility] Potassium, Whole Blood 4.2 3.6 - 4.9 mmol/L LAB HEMATOLOGY METHOD 05/31/2025 4:07 PM EDT [facility] Chloride, Whole Blood 110(H) 97 - 107 mmol/L LAB HEMATOLOGY METHOD 05/31/2025 4:07 PM EDT [facility] Glucose, Whole Blood 183(H) 74 - 99 mg/dL LAB HEMATOLOGY METHOD 05/31/2025 4:07 PM EDT [facility] Lactate, Venous, Whole Blood 1.8 0.5 - 2.2 mmol/L LAB HEMATOLOGY METHOD 05/31/2025 4:07 PM EDT [facility] Ionized Calcium, Whole Blood 4.4(L) 4.6 - 5.1 mg/dL LAB HEMATOLOGY METHOD 05/31/2025 4:07 PM EDT [facility] Blood Venous blood specimen / Unknown Venipuncture / Unknown 05/31/2025 4:01 PM EDT 05/31/2025 4:06 PM EDT us Torrie Turner MD LAB BLOOD ORDERABLES Final Resu lt [facility] [address] [place] [address] * Lipase (05/31/2025 4:01 PM EDT) Lipase, Plasma 62 19 - 63 U/L 05/31/2025 4:26 PM EDT [facility] Blood Venous blood specimen / Unknown Venipuncture / Unknown 05/31/2025 4:01 PM EDT 05/31/2025 4:06 PM EDT Torrie Turner MD LAB BLOOD ORDERABLES Final Resu lt Performing Organization Address [facility]/ZIP Co de Phone Number [facility] [address] [place] [address] * (ABNORMAL) Magnesium (05/31/2025 4:01 PM EDT) Magnesium, Plasma 1.3(L) 1.9 - 2.4 mg/dL 05/31/2025 4:26 PM EDT [facility] Blood Venous blood specimen / Unknown Venipuncture / Unknown 05/31/2025 4:01 PM EDT 05/31/2025 4:06 PM EDT Torrie Turner MD LAB BLOOD ORDERABLES Final Resu lt Performing Organization Address [facility] Co de Phone Number [facility] [address] [place] [address] * (ABNORMAL) CMP (05/31/2025 4:01 PM EDT) Glucose, Plasma 181(H) 74 - 99 mg/dL 05/31/2025 4:26 PM EDT [facility] BUN, Plasma 29(H) 8 - 23 mg/dL 05/31/2025 4:26 PM EDT [facility] Creatinine, Plasma 1.34(H) 0.60 - 1.10 mg/dL 05/31/2025 4:26 PM EDT [facility] BUN/Creatinine Ratio 22 05/31/2025 4:26 PM EDT [facility] Sodium, Plasma 140 136 - 145 mmol/L 05/31/2025 4:26 PM EDT [facility] Potassium, Plasma 4.3 3.6 - 4.9 mmol/L 05/31/2025 4:26 PM EDT [facility] Chloride, Plasma 109(H) 97 - 107 mmol/L 05/31/2025 4:26 PM EDT [facility] CO2, Plasma 19(L) 22 - 29 mmol/L 05/31/2025 4:26 PM EDT [facility] Anion Gap 12 6 - 16 mmol/L 05/31/2025 4:26 PM EDT [facility] Total Calcium, Plasma 8.5(L) 8.9 - 10.2 mg/dL 05/31/2025 4:26 PM EDT [facility] Total Protein 6.6 6.3 - 7.9 g/dL 05/31/2025 4:26 PM EDT [facility] Albumin, Plasma 3.5 3.5 - 5.2 g/dL 05/31/2025 4:26 PM EDT [facility] AST, Plasma 30 10 - 35 U/L 05/31/2025 4:26 PM EDT [facility] ALT, Plasma 15 10 - 35 U/L 05/31/2025 4:26 PM EDT [facility] Alkaline Phosphatase, Plasma 167(H) 46 - 142 U/L 05/31/2025 4:26 PM EDT [facility] Total Bilirubin, Plasma 4.1(H) 0.2 - 1.1 mg/dL 05/31/2025 4:26 PM EDT [facility] eGFRcr 44.9 mL/min/1.7 3m*2 05/31/2025 4:26 PM EDT [facility] Comment:Reported eGFRcr in m L/min/1.73m2 is based the CKD-EPI 2020 equation that does not use a race coefficient. Blood Venous blood specimen / Unknown Venipuncture / Unknown 05/31/2025 4:01 PM EDT 05/31/2025 4:06 PM EDT us Torrie Turner MD LAB BLOOD ORDERABLES Final Resu lt [facility] [address] [place] [address] * ECG Adult (05/31/2025 3:43 PM EDT) EKG DIAGNOSIS CLASS Abnormal MUSE ECG Ventricular Rate 67 BPM MUSE ECG Atrial Rate 67 BPM MUSE ECG CO Interval 116 ms MUSE ECG QRSD Interval 88 ms MUSE ECG QT Interval 466 ms MUSE ECG QTC Interval 492 ms MUSE ECG P [place] 40 degrees MUSE ECG R [place] -36 degrees MUSE ECG T Wave [place] -2 degrees MUSE ECG Diagnosis Normal sinus rhythm MUSE ECG Diagnosis Left axis deviation MUSE ECG Diagnosis Cannot rule out Anterior infarct , age undetermined MUSE ECG Diagnosis MUSE ECG Diagnosis MUSE ECG Diagnosis Confirmed by Cecelia Leal ([id number]) on 06/02/2025 7:31:57 PM MUSE ECG 05/31/2025 3:43 PM EDT 06/02/2025 7:31 PM EDT us Irina Hernandez MD ECG ORDERABLES Final Result Performing Organization Address City/[facility]/ZIP Co de Phone Number MUSE ECG * Urine Subramanian Panel (05/31/2025 3:08 PM EDT) Extra Reflex urine culture not indicated 05/31/2025 5:01 PM EDT [facility] Urine Urine specimen obtained by clean catch procedure / Unknown Non-blood Collection / Unknown 05/31/2025 3:08 PM EDT 05/31/2025 3:41 PM EDT Torrie Turner MD LAB URINE ORDERABLES Final Resu lt Performing Organization Address [facility] [place] [address] * Urinalysis Microscopic Examination (05/31/2025 3:06 PM EDT) Urine Urine specimen obtained by clean catch procedure / Unknown Non-blood Collection / Unknown 05/31/2025 3:06 PM EDT 05/31/2025 3:10 PM EDT Torrie Turner MD LAB URINE ORDERABLES Final Resu lt Performing Organization Address [facility] Co de Phone Number [facility] [address] [place] [address] * (ABNORMAL) Urinalysis with reflex microscopic (Culture NOT Included) (05/31/2025 3:06 PM EDT) Color, Urine Dark Yellow LAB URINALYSIS - AUTOMATED METHOD 05/31/2025 3:53 PM EDT [facility] Clarity, Urine Cloudy LAB URINALYSIS - AUTOMATED METHOD 05/31/2025 3:53 PM EDT [facility] Spec Sherman, Urine 1.025 1.005 - 1.030 LAB URINALYSIS - AUTOMATED METHOD 05/31/2025 3:53 PM EDT [facility] pH, Urine <=5.0(L) 5.0 - 8.0 LAB URINALYSIS - AUTOMATED METHOD 05/31/2025 3:53 PM EDT [facility] Protein, Urine Trace(A) Negative mg/dL LAB URINALYSIS - AUTOMATED METHOD 05/31/2025 3:53 PM EDT [facility] Glucose, Urine Negative Negative mg/dL LAB URINALYSIS - AUTOMATED METHOD 05/31/2025 3:53 PM EDT [facility] Ketones, Urine Trace(A) Negative mg/dL LAB URINALYSIS - AUTOMATED METHOD 05/31/2025 3:53 PM EDT [facility] Blood, Urine Trace(A) Negative LAB URINALYSIS - AUTOMATED METHOD 05/31/2025 3:53 PM EDT [facility] Bilirubin, Urine Small(A) Negative LAB URINALYSIS - AUTOMATED METHOD 05/31/2025 3:53 PM EDT [facility] Urobilinogen, Urine 1.0 0.2 to 1.0 mg/dL LAB URINALYSIS - AUTOMATED METHOD 05/31/2025 3:53 PM EDT [facility] Leukocytes, Urine Small(A) Negative LAB URINALYSIS - AUTOMATED METHOD 05/31/2025 3:53 PM EDT [facility] Nitrite, Urine Negative Negative LAB URINALYSIS - AUTOMATED METHOD 05/31/2025 3:53 PM EDT [facility] RBC, Urine 4 - 10(A) 0 to 3 /HPF LAB URINALYSIS - AUTOMATED METHOD 05/31/2025 3:53 PM EDT [facility] Comment:This result was prev iously suppressed from the chart. WBC, Urine 6 - 10(A) 0 to 5 /HPF LAB URINALYSIS - AUTOMATED METHOD 05/31/2025 3:53 PM EDT [facility] Comment:This result was prev iously suppressed from the chart. Squamous Epithelial Cells 11 - 20(A) 0 to 5 /HPF LAB URINALYSIS - AUTOMATED METHOD 05/31/2025 3:53 PM EDT [facility] Comment:This result was prev iously suppressed from the chart. Hyaline Casts 3 - 5 0 to 5 /LPF LAB URINALYSIS - AUTOMATED METHOD 05/31/2025 3:53 PM EDT [facility] Comment:This result was prev iously suppressed from the chart. Bacteria, Urine Negative Negative LAB URINALYSIS - AUTOMATED METHOD 05/31/2025 3:53 PM EDT [facility] Comment:This result was prev iously suppressed from the chart. Renal Tubular Cells Present Absent 05/31/2025 3:53 PM EDT [facility] Comment:This result was prev iously suppressed from the chart. Transitional Epithelial Cells Present Absent 05/31/2025 3:53 PM EDT [facility] Comment:This result was prev iously suppressed from the chart. Urine Urine specimen obtained by clean catch procedure / Unknown Non-blood Collection / Unknown 05/31/2025 3:06 PM EDT 05/31/2025 3:10 PM EDT Narrative [facility] - 05/31/2025 3:53 PM EDT Performed by manual method Torrie Turner MD LAB URINE ORDERABLES Final Resu lt [facility] [address] [place] [address] documented in this encounter Visit Diagnoses Diagnosis [...] 1 dose, On Tue05/31/25 at 1435, Routine 1559 (Given - Provid [...] documented as of this encounter Care Teams Professional Tutor Relationship Specialty Start Date End Date Alvarez Zimmer MD [address] [place] [phone] PCP - General Family Medicine 12/07/24 Lea Fernando [address] [place] [address] [employer] Specialist Endocrinology 08/29/24 Rachel Ray, CULTURE MEDIA LABORATORY ASSISTANT [address] [place] [address] Nurse Practitioner Gastroenterology 09/24/24 Tamera Isabel LPN VALUE-BASED TRANSFORMATION PROGRAM Licensed Practical Nurse 05/29/25 documented as of this encounter
--- OUTSIDE RECORDS SUMMARY | 2025-06-05 14:00 | XMS_ITS | Encounter Summary ---
Author Organization [facility] Address [address] [place] [address] Care Team Providers Care Sas Statistical Programmer Name Role Phone Lenoresimeon Lea Clarke Unavailable [phone] Rachel Ray COOK HELPER JUICE Unavailable [phone] Alvarez Zimmer MD Primary Care Provider [phone] Tamera Isabel CARE PROFESSIONALS Unavailable Unavailabl e Reason for Visit * Reason Comments Medicare Annual Wellness Visit Initial A nnual; has been feeling out of sorts for a while but has been worse since Tuesday Care Gap Closure Postpone Covid vacci ne; last colonoscopy done 01/14/23 Shinto, record under media and printed out to put in scrubber box Med Refill Crestor Encounter Details Date Type Department Care Team (Latest Contact Info) Description 06/05/2025 2:00 PM EDT Office Visit [facility] [address] [place] [address] Alvarez Zimmer MD [address] [place] [address] Medicare annual wellness visit, initial (Primary Dx); 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 Patient unable to answer 01/10/2025 Do you belong to any clubs o r organizations such as restorationism groups, unions, fraternal or athletic groups, or [...] any time in the past 12 m [facility], were you homeless or living in a nursing home (including now)? No 03/06/2025 Humiliation, Afraid, Rape, [...] often do you attend chur ch or hoahaoism services? Never 05/29/2025 Do you belong to any clubs o r organizations such as restorationism groups, unions, fraternal or athletic groups, or [...] more drinks on one occasion? Never 06/05/2025 [facility] - Occupational Stress Questionnaire Answer Date Recorded [...] any time in the past 12 m [facility], were you homeless or living in a nursing home (including now)? No 05/29/2025 CAGE ASSESSMENT [...] first t kennedy in the morning (EYE-PEDIATRIC PATHOLOGIST) to steady your nerves or to get rid of a hangover? 0 10/22/2024 CAGE Questionnaire Score 0 024 Utilities Answer Date Recorded In the past 12 months has e [employer], gas, oil, or water company threatened to [...] Postpone Covid vaccine; last colonoscopy done 01/14/23 Shinto, record under media and printed out to put in scrubber box [facility] completed and reviewed with the patient. HPI: Gabi Zimmer is a 64 y.o. female who presents for an Initial Medicare Wellness Visit. [phone], phone number for Lea Reilly. She is [...] insulin managed by endocrinology. Has CAD in minto artery on rosuvastatin. Has HLD on rosuvastatin [...] - General (Family Medicine) Lea Fernando as Scenario Writer (Endocrinology) Rachel Ray APRN as Nurse Practitioner [...] 0 min Stress: Stress Concern Present (05/29/2025) [employer] [place] [facility] - Occupational Stress Questionnaire Feeling of Stress: Very much Social Connections: Socially Isolated (05/29/2025) Social Connection and Isolation Panel Frequency of Communication with Friends and Family: More than three times a week Frequency of Social Gatherings with Friends and Family: Once a week Attends Hoahaoism Services: Never Active Member of Clubs or [...] Risk 60-74 years 1-dose series) Never done [id number] Vaccine ( - season) Never done UKY-Influenza [...] due to being sick and delirious episodes. 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) Relevant Medications midodrine (Proamatine) 5 MG tablet Diabetic peripheral neuropathy ([facility]/HCC) JONATHAN treated with BiPAP Hyperlipidemia Type 2 diabetes mellitus, with long-term current use of insulin (CMS/HCC) 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) 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) ([facility]) (Chronic) Other Visit Diagnoses Medicare annual wellness visit, initial - Primary Anemia of chronic disease Relevant Orders CBC and Differential Iron, Plasma Ferritin, Serum Anxiety disorder, unspecified type Hypomagnesemia Vitamin D deficiency Hyperbilirubinemia Relevant Orders Conjugated Bilirubin, Plasma Protein malnutrition ([facility]/HCC) Relevant Orders Prealbumin, Plasma An After [...] Risk 60-74 years 1-dose series) Never done [id number] Vaccine (1 - season) Never done UKY-Influenza [...] MINI PEN NEEDLES 31G X 5 MM [facility], , Disp: , Rfl: Blood Glucose Monitoring [...] Rfl: 0 ergocalciferol (Vitamin D-2) 1.25 MG (67719 UT) capsule, Take 1 capsule by mouth [...] Mother Karime Singletary Kidney disease Mother Karime Singlteary Depression Mother Karime Singletary Arthritis Father Eliseo [...] Depression Son Jpsage Zimmer Asthma Son Jpsage Zimmer Mental illness Son Jpsage Zimmer Depression Son Viralarnoldo Zimmer Diabetes Son Viral Zimmer [4] Past Surgical History: Procedure Laterality Date APPENDECTOMY 1979 BLADDER SURGERY N/A Bladder surgery from [facility] BREAST BIOPSY 2011 BREAST SURGERY 2010 BUNIONECTOMY Right CATARACT EXTRACTION Bilateral 2016 CHOLECYSTECTOMY 1979 ESOPHAGOGASTRODUODENOSCOPY HYSTERECTOMY N/A Hysterectomy from [facility] KNEE SURGERY Bilateral ORAL SURGERY N/A Oral surgery from [facility] OTHER SURGICAL HISTORY 2015 ROOT CANAL WISDOM TOOTH EXTRACTION [5] Patient Active Problem List Diagnosis Alopecia Chronic obstructive pulmonary disease (CMS/HCC) Chronic kidney disease, stage 3b (CMS/HCC) 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) Diabetic [...] Appointment [facility] [address] [place] [address] 06/27/2025 10:30 AM EDT Appointment [facility] [address] [place] [address] 07/04/2025 10:30 AM EDT Appointment [facility] [address] [place] [address] 07/04/2025 11:30 AM EDT Appointment [facility] [address] [place] [address] 07/09/2025 2:40 PM EDT Office Visit [facility] Mineral Metabolism [address] [facility], [address] [place] [id number] Ar Dominique MD [address] [place] [address] 07/11/2025 10:30 AM EDT Appointment [facility] [address] [place] [address] 07/11/2025 11:30 AM EDT Appointment [facility] [address] [place] [address] 07/18/2025 10:30 AM EDT Appointment [facility] [address] [place] [address] 07/18/2025 11:30 AM EDT Appointment [facility] [address] [place] [address] 07/25/2025 10:30 AM EDT Appointment [facility] [address] [place] [address] 07/25/2025 11:30 AM EDT Appointment [facility] [address] [place] [address] 07/31/2025 9:00 AM EDT Office Visit [facility] [address] [place] [address] Alvarez Zimmer MD [address] [place] [address] 08/20/2025 9:30 AM EDT Clinical Support [facility] [address] [place] [address] 08/20/2025 10:30 AM EDT Social Work [facility] [address] [place] [address] [place] [address] 08/20/2025 11:00 AM EDT Office Visit [facility] [address] [place] [address] Jude Duque MD [address] [place] [address] 10/30/2025 1:20 PM EST Office Visit [facility] [address] [place] [address] Sharif Moreno, DPM [address] [place] [address] documented as of this encounter [...] - 150 ng/mL 06/05/2025 6:53 PM EDT [facility] Blood Venous blood specimen / Unknown Venipuncture / Unknown 06/05/2025 3:52 PM EDT 06/05/2025 3:52 PM EDT Alvarez Zimmer MD LAB BLOOD ORDERABLES Final Res ult Performing Organization Address City/[facility]/ZIP Co de Phone Number [facility] [address] [place] [address] * (ABNORMAL) Iron, Plasma (06/05/2025 3:52 PM EDT) Iron, Plasma 165(H) 30 - 160 ug/dL 06/05/2025 6:41 PM EDT [facility] Blood Venous blood specimen / Unknown Venipuncture / Unknown 06/05/2025 3:52 PM EDT 06/05/2025 3:52 PM EDT Alvarez Zimmer MD LAB BLOOD ORDERABLES Final Res ult [facility] [address] [place] [address] * (ABNORMAL) CBC and Differential (06/05/2025 3:52 PM EDT) WBC Count 4.22 3.70 - 10.30 10*3/uL LAB HEMATOLOGY METHOD 06/05/2025 6:35 PM EDT [facility] RBC Count 3.21(L) 3.90 - 5.20 10*6/uL LAB HEMATOLOGY METHOD 06/05/2025 6:35 PM EDT [facility] HGB 10.0(L) 11.2 - 15.7 g/dL LAB HEMATOLOGY METHOD 06/05/2025 6:35 PM EDT [facility] HCT 31.4(L) 34.0 - 45.0 % LAB HEMATOLOGY METHOD 06/05/2025 6:35 PM EDT [facility] Platelet Count 57(L) 155 - 369 10*3/uL LAB HEMATOLOGY METHOD 06/05/2025 6:35 PM EDT [facility] MCV 98 79 - 98 fL LAB HEMATOLOGY METHOD 06/05/2025 6:35 PM EDT [facility] MCH 31.2 26.0 - 32.0 pg LAB HEMATOLOGY METHOD 06/05/2025 6:35 PM EDT [facility] MCHC 31.8 30.7 - 35.5 g/dL LAB HEMATOLOGY METHOD 06/05/2025 6:35 PM EDT [facility] RDW 17.9(H) 11.5 - 14.5 % LAB HEMATOLOGY METHOD 06/05/2025 6:35 PM EDT [facility] MPV 11.2 8.8 - 12.5 fL LAB HEMATOLOGY METHOD 06/05/2025 6:35 PM EDT [facility] nRBC 0.0 <=0.0 per 100 WBCs LAB HEMATOLOGY METHOD 06/05/2025 6:35 PM EDT [facility] Differential Type Automated LAB HEMATOLOGY METHOD 06/05/2025 6:35 PM EDT [facility] Neutrophils % 64 % LAB HEMATOLOGY METHOD 06/05/2025 6:35 PM EDT [facility] Lymphocytes % 17 % LAB HEMATOLOGY METHOD 06/05/2025 6:35 PM EDT [facility] Monocytes % 15 % LAB HEMATOLOGY METHOD 06/05/2025 6:35 PM EDT [facility] Eosinophils % 3 % LAB HEMATOLOGY METHOD 06/05/2025 6:35 PM EDT [facility] Basophils % 1 % LAB HEMATOLOGY METHOD 06/05/2025 6:35 PM EDT [facility] Immature Granulocytes % 0 % LAB HEMATOLOGY METHOD 06/05/2025 6:35 PM EDT [facility] Neutrophils Absolute 2.71 1.60 - 6.10 10*3/uL LAB HEMATOLOGY METHOD 06/05/2025 6:35 PM EDT [facility] Lymphocytes Absolute 0.71(L) 1.20 - 3.90 10*3/uL LAB HEMATOLOGY METHOD 06/05/2025 6:35 PM EDT [facility] Monocytes Absolute 0.65 0.30 - 0.90 10*3/uL LAB HEMATOLOGY METHOD 06/05/2025 6:35 PM EDT [facility] Eosinophils Absolute 0.11 0.00 - 0.50 10*3/uL LAB HEMATOLOGY METHOD 06/05/2025 6:35 PM EDT [facility] Basophils Absolute 0.03 0.00 - 0.10 10*3/uL LAB HEMATOLOGY METHOD 06/05/2025 6:35 PM EDT [facility] Immature Granulocytes Absolute 0.01 0.00 - 0.06 10*3/uL LAB HEMATOLOGY METHOD 06/05/2025 6:35 PM EDT [facility] Blood Venous blood specimen / Unknown Venipuncture / Unknown 06/05/2025 3:52 PM EDT 06/05/2025 3:52 PM EDT Narrative [facility] - 06/05/2025 6:35 PM EDT Therapeutic decision making should be based on absolute values, rather than percentages. Alvarez Zimmer MD LAB BLOOD ORDERABLES Final Res ult [facility] [address] [place] [address] * (ABNORMAL) Prealbumin, Plasma (06/05/2025 3:52 PM EDT) Prealbumin, Plasma 6.6(L) 20.0 - 41.0 mg/dL 06/05/2025 6:41 PM EDT [facility] Blood Venous blood specimen / Unknown Venipuncture / Unknown 06/05/2025 3:52 PM EDT 06/05/2025 3:52 PM EDT Alvarez Zimmer MD LAB BLOOD ORDERABLES Final Res ult [facility] [address] [place] [address] * (ABNORMAL) Conjugated Bilirubin, Plasma (06/05/2025 3:52 PM EDT) Conjugated Bilirubin, Plasma 1.5(H) <=0.3 mg/dL 06/05/2025 6:41 PM EDT [facility] Blood Venous blood specimen / Unknown Venipuncture / Unknown 06/05/2025 3:52 PM EDT 06/05/2025 3:52 PM EDT us Alvarez Zimmer MD LAB BLOOD ORDERABLES Final Res ult [facility] [address] [place] [address] documented in this encounter Visit Diagnoses Diagnosis Medicare annual wellness visit, initial- Primary 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) Diabetic [...] documented as of this encounter Care Teams Sas Statistical Programmer Relationship Specialty Start Date End Date Alvarez Zimmer MD [facility] [place] [address] PCP - General Family Medicine 12/07/24 Lea Fernando [address] [facility] [address] [place] [address] Scenario Writer Endocrinology 08/29/24 Rachel Ray APRN [address] [facility] [address] [place] [address] Nurse Practitioner Gastroenterology 09/24/24 Tamera sIabel, MG VALUE-BASED TRANSFORMATION PROGRAM Licensed Practical Nurse 05/29/25 documented as of this encounter
--- OUTSIDE RECORDS SUMMARY | 2025-06-06 07:58 | XMS_ITS | Encounter Summary ---
Author Organization Healthcare Address [address] [place] [address] Care Team Providers Care Commodities Requirements Analyst Name Role Phone Lea Fernando Unavailable [phone] Rachel Ray SCRAP CRANE OPERATOR Unavailable [phone] Alvarez Zimmer MD Primary Care Provider [phone] Tamera Isabel LPN Unavailable Unavailabl e Reason for Referral * Clinic-Administered Medication (Routine) - Closed Specialty Diagnoses / Procedures Referred By Eder t Referred To Contact Diagnoses Other ascites Procedures [place] ABDOM PARACENTESIS DX/THER W IMAGING GUIDANCE Marianna Gordon APRN [address] [place] [address] Phone: tel: fax: [facility] [address] [place] [address] Phone: tel: fax: Referral ID Status Reason Start Date Expiration Date Visits Re quested Visits Authorized [id number] Closed 06/06/2025 12/06/2026 1 1 * Imaging (Routine) - Closed Specialty Diagnoses / Procedures Referred By Eder t Referred To Contact Radiology Diagnoses Other ascites Procedures US Guided Abdominal Paracentesis Marianna Gordon APRN [address] [place] [address] Phone: tel: fax: Referral ID Status Reason Start Date Expiration Date Visits Re quested Visits Authorized [id number] Closed 04/26/2025 10/26/2026 1 1 * Imaging (Routine) - Closed Specialty Diagnoses / Procedures Referred By Allanac audra Referred To Contact Radiology Diagnoses Other ascites Procedures US Guided Thoracentesis Marianna Gordon APRN [address] [place] [address] Phone: tel: fax: Referral ID Status Reason Start Date Expiration Date Visits Re quested Visits Authorized [id number] Closed 04/26/2025 10/26/2026 1 1 Reason for Visit * Imaging (Routine) - Closed Specialty Diagnoses / Procedures Referred By Eder zhu Referred To Contact Radiology Diagnoses Other ascites Procedures US Guided Abdominal Paracentesis Marianna Gordon APRN [address] [place] [address] Phone: tel: fax: Referral ID Status Reason Start Date Expiration Date Visits Re quested Visits Authorized [id number] Closed 04/26/2025 10/26/2026 1 1 Encounter Details Date Type Department Care Team (Latest Contact Info) Description 06/06/2025 7:58 AM EDT - 06/06/2025 11:19 AM EDT Hospital Encounter [facility] Interventional Radiology [address] [place] [address] Golden Wilhelm RN MICU 9-T1 AND T2 [...] often do you attend chur ch or adventism services? Patient unable to answer 01/10/2025 Do you belong to any clubs o r organizations such as yarsanism groups, unions, fraternal or athletic groups, or [...] in the past 12 m [facility], were you homeless or living in a assisted (including now)? No 03/06/2025 Humiliation, Afraid, Rape, [...] week 05/29/2025 How often do you attend [facility] or adventism services? Never 05/29/2025 Do you belong to any clubs o r organizations such as yarsanism groups, unions, fraternal or athletic groups, or [...] more drinks on one occasion? Never 06/05/2025 [facility] - Occupational Stress [...] in the past 12 m [facility], were you homeless or living in a assisted (including now)? No 05/29/2025 CAGE ASSESSMENT Answer [...] drink first t kennedy in the morning (EYE-CONSTRUCTION ELECTRICIAN) to steady your nerves or to get [...] call: [facility] Inter[facility]iology Clinic at [phone] Tuesday - Tuesday 8:00 AM to 4:30 PM After hours, weekends, and holidays please call [phone] and ask for the Interventional Radiology provider/Resident on-call Intervention Radiology Appointments: If you need to reschedule a procedure, please call our Schedulers at [phone], option [phone]. If you need to schedule or reschedule a clinic appointment, please call [phone]. [facility] Vascular and Interventional Radiology Clinic [address] [place] [address] documented in this encounter Medications at Time [...] 1 03/01/2025 ergocalciferol (Vitamin D-2) 1.25 MG (04747 UT) capsuleIndications: Vitamin D deficiency Take 1 [...] from the original note were not included. [id number] Discharge Instructions for Thoracentesis Thoracentesis is a [...] blood. Last Reviewed Date: 2025 00:00:00 ?? [id number] [employer]. All rights reserved. This information is not intended as a substitute for professional medical care. Always follow your healthcare professional's instructions. * [facility] - Golden Wilhelm RN - 06/06/2025 11:50 AM EDT Images from the original note were not included. [id number] Discharge Instructions for Paracentesis Paracentesis is a [...] fainting. Last Reviewed Date: 2025 00:00:00 ?? [id number] [employer]. All rights reserved. This information is not intended as a substitute for professional medical care. Always follow your healthcare professional's instructions. * Post-Procedure Note - Marianna Gordon APRN - 06/06/2025 9:30 AM EDT Vascular and Interventional Radiology Brief Postprocedure Note Performed by: Marianna Gordon APRN Records Officer: LOUISE Pre-operative Diagnosis: right pleural effusion and [...] are consistent with and integrated into the [place] [employer] Liver Diseases [...] is no recent study available for direct vheu-cn-tstc comparison. Assessment & Plan: Decompensated MASH cirrhosis [...] the care of this patient. Marianna Gordon, SCRAP CRANE OPERATOR Interventional Radiology [phone] [1] Past Medical History: Diagnosis Date ADHD (attention deficit hyperactivity disorder) Allergic Anxiety disorder, unspecified Anxiety Bleeding gums Blood in urine Cataract Chronic kidney disease Cirrhosis (CMS/HCC) Colon cancer screening 09/20/2019 Added automatically from request for surgery [id number] Coronary artery disease Depression 1995 Diabetes mellitus [...] 1979 BLADDER SURGERY N/A Bladder surgery from [facility] BREAST BIOPSY 2011 BREAST SURGERY 2010 BUNIONECTOMY Right CATARACT EXTRACTION Bilateral 2016 CHOLECYSTECTOMY 1979 ESOPHAGOGASTRODUODENOSCOPY HYSTERECTOMY N/A Hysterectomy from [facility] KNEE SURGERY Bilateral ORAL SURGERY N/A Oral surgery from [facility] OTHER SURGICAL HISTORY 2014 ROOT CANAL WISDOM [...] Rfl: 1 ergocalciferol (Vitamin D-2) 1.25 MG (30178 UT) capsule, Take 1 capsule by mouth [...] A Interventional Radiology [address] [place] [address] 06/27/2025 10:30 AM EDT Appointment [facility] Inter[facility] Radiology [address] [place] [address] 07/04/2025 10:30 AM EDT Appointment [facility] Inter[facility] Radiology [address] [place] [address] 07/04/2025 11:30 AM EDT Appointment [facility] Interventional Radiology [address] [place] [address] 07/09/2025 2:40 PM EDT Office Visit [facility] Bone & Mineral Metabolism [address], [address] [place] [address] Ar Dominique MD [address] [place] [address] 07/11/2025 10:30 AM EDT Appointment [facility] Interventional Radiology [address] [place] [address] 07/11/2025 11:30 AM EDT Appointment [facility] Interventional Radiology [address] [place] [address] 07/18/2025 10:30 AM EDT Appointment [facility] Inter[facility] Radiology [address] [place] [address] 07/18/2025 11:30 AM EDT Appointment [facility] Interventional Radiology [address] [place] [address] 07/25/2025 10:30 AM EDT Appointment [facility] Inter[facility] Radiology [address] [place] [address] 07/25/2025 11:30 AM EDT Appointment [facility] Inter[facility] Radiology [address] [place] [address] 07/31/2025 9:00 AM EDT Office Visit [address] [place] [address] Alvarez Zimmer MD [address] [place] [address] 08/20/2025 9:30 AM EDT Clinical Support [facility] [address] [place] [address] 08/20/2025 10:30 AM EDT Social Work [facility] [address] [place] [address] [place] [address] 08/20/2025 11:00 AM EDT Office Visit [facility] [address] [place] [address] Jude Duque MD [address] [place] [address] 10/30/2025 1:20 PM EST Office Visit [facility] Endocrinology [address] [place] [address] Sharif Moreno, DPM [address] [place] [address] documented as of this encounter [...] 06/06/2025 12:18 PM us Marianna N Cheeks SCRAP CRANE OPERATOR IMG XR PROCEDURES Final Resu lt * [...] past medical history of CKD, Depression, Hypoparathyroidism, JNOATHAN Type 2 diabetes mellitus, asthma, osteoarthritis and 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 TECHNIQUE: Neuropsychology Service Director: Marianna Gordon APRN Secondary Crop Roller: None. Nurse: Aleksandr Technologist: Lilliana Phillips Dose: [...] complicated by ascites and intermittenthepatic hydrothorax. TECHNIQUE: Neuropsychology Service Director: Marianna Gordon APRN Secondary Crop Roller: None. Nurse: Aleksandr Technologist: Lilliana Phillips Dose: [...] by ascites and intermittent hepatic hydrothorax. TECHNIQUE: Neuropsychology Service Director: Marianna Gordon APRN Secondary Crop Roller: None. Nurse: Aleksandr Technologist: Lilliana Phillips Dose: [...] complicated by ascites and intermittenthepatic hydrothorax. TECHNIQUE: Neuropsychology Service Director: Marianna Gordon APRN Secondary Crop Roller: None. Nurse: Aleksandr Technologist: Lilliana Phillips Dose: [...] MD on 06/06/2025 4:13 PM Marianna Gordon SCRAP CRANE OPERATOR IMG US PROCEDURES Final Resu lt * Protein - Ascites (06/06/2025 9:36 AM EDT) Total Protein, Fluid 0.8 g/dL 06/06/2025 2:36 PM EDT [facility] Ascites Peritoneal cavity structure / Unknown 06/06/2025 9:36 AM EDT 06/06/2025 1:21 PM EDT Narrative [facility] - 06/06/2025 2:36 PM EDT This test was developed and its performance characteristics determined by [email or web address]. The U.S. Food and Drug Administration has not approved or cleared this test. However, FDA clearance or approval is not currently required for clinical use. The results are not intended to be used as the sole means for clinical diagnosis or patient management decisions. Marianna Metcalf Cheeks SCRAP CRANE OPERATOR LAB BODY FLUIDS AND STOOLS O RDERABLES Final Result Performing Organization Address [facility]/ZIP Co de Phone Number [facility] [address] [place] [address] * Body fluid, cytospin, pathologist interpretation (06/06/2025 9:35 AM EDT) Specimen Type Body Fluid LAB HEMATOLOGY METHOD 06/07/2025 3:15 PM EDT [facility] Specimen Source, Body Fluid Peritoneal Fluid LAB HEMATOLOGY METHOD 06/07/2025 3:15 PM EDT [facility] Clinical Diagnosis, Body Fluid Ascites LAB HEMATOLOGY METHOD 06/07/2025 3:15 PM EDT [facility] Interpretation , Body Fluid No evidence of malignancy Predominantly chronic inflammatory cells Moderate blood A resident was involved in the service. I attest I examined the relevant preparations for the specimens and confirmed the diagnosis or interpretation. 06/07/2025 3:15 PM EDT [facility] Pathologist Signature, Body Fluid 06/07/2025 3:15 PM EDT [facility] Comment:Reviewed by: Kadie dobbs MD LAB CP ASR DISCLAIMER Yes 06/07/2025 3:15 PM EDT [facility] Body Fluid Peritoneal fluid / Unknown Non-blood Collection / Unknown 06/06/2025 9:35 AM EDT 06/06/2025 1:21 PM EDT us Marianna N Cheeks SCRAP CRANE OPERATOR LAB BODY FLUIDS AND STOOLS O RDERABLES Final Result Performing Organization Address City/[facility]/ZIP Co de Phone Number [facility] [address] [place] [address] * (ABNORMAL) Body Fluid Cell Count With Diff - Ascites (06/06/2025 9:35 AM EDT) Color, Body fluid Red LAB HEMATOLOGY METHOD 06/06/2025 5:43 PM EDT [facility] Appearance, Body fluid Cloudy(A) LAB HEMATOLOGY METHOD 06/06/2025 5:43 PM EDT [facility] Volume, Body fluid 35.0 cc LAB HEMATOLOGY METHOD 06/06/2025 5:43 PM EDT [facility] Fluid Container Specimen received in miscellaneous container LAB HEMATOLOGY METHOD 06/06/2025 5:43 PM EDT [facility] Red Blood Cell Count, Body fluid 29,000 uL LAB HEMATOLOGY METHOD 06/06/2025 5:43 PM EDT [facility] Total Nucleated Cell Count, Body fluid 319 uL LAB HEMATOLOGY METHOD 06/06/2025 5:43 PM EDT [facility] Neutrophils %, Body fluid 4 % LAB HEMATOLOGY METHOD 06/06/2025 5:43 PM EDT [facility] Lymphocytes %, Body fluid 56 % LAB HEMATOLOGY METHOD 06/06/2025 5:43 PM EDT [facility] Monocytes/Macr ophages %, Body fluid 36 % LAB HEMATOLOGY METHOD 06/06/2025 5:43 PM EDT [facility] Eosinophils %, Body fluid 0 % LAB HEMATOLOGY METHOD 06/06/2025 5:43 PM EDT [facility] Lining/[place]es[place] lial Cells %, Body fluid 4 % LAB HEMATOLOGY METHOD 06/06/2025 5:43 PM EDT [facility] Neutrophils Absolute (PMN), Body fluid 13 uL LAB HEMATOLOGY METHOD 06/06/2025 5:43 PM EDT [facility] Lymphocytes Absolute, Body fluid 179 uL LAB HEMATOLOGY METHOD 06/06/2025 5:43 PM EDT [facility] Monocytes/Macr ophages Absolute, Body fluid 115 uL LAB HEMATOLOGY METHOD 06/06/2025 5:43 PM EDT [facility] Eosinophils Absolute, Body fluid 0 uL LAB HEMATOLOGY METHOD 06/06/2025 5:43 PM EDT [facility] Basophils Absolute, Body fluid 0 uL LAB HEMATOLOGY METHOD 06/06/2025 5:43 PM EDT [facility] Lining/Mesothe lial Cells Absolute, Body fluid 13 uL LAB HEMATOLOGY METHOD 06/06/2025 5:43 PM EDT [facility] Comment, Body fluid None LAB HEMATOLOGY METHOD 06/06/2025 5:43 PM EDT [facility] Comment:This is an appended report. These results have been appended to a previously preliminary verified report. Basophils %, Body fluid 0 % LAB HEMATOLOGY METHOD 06/06/2025 5:43 PM EDT [facility] Body Fluid Peritoneal fluid / Unknown Non-blood Collection / Unknown 06/06/2025 9:35 AM EDT 06/06/2025 1:21 PM EDT Marianna Gordon SCRAP CRANE OPERATOR LAB BODY FLUIDS AND STOOLS ORDERABLES NO SPECIMEN TYPE/SOURCE Final Result [facility] [address] [place] [address] documented in this encounter Visit Diagnoses Diagnosis [...] documented as of this encounter Care Teams Commodities Requirements Analyst Relationship Specialty Start Date End Date Alvarez Zimmer MD [address] [place] [address] PCP - General Family Medicine 12/07/24 Lea Fernando [address] [facility] [address] [place] [address] Superintendent Meters Endocrinology 08/29/24 Rachel Ray, SCRAP CRANE OPERATOR [address] [place] [address] Nurse Practitioner Gastroenterology 09/24/24 Tamera Isabel, MG VALUE-BASED TRANSFORMATION PROGRAM Licensed Practical Nurse 05/29/25 documented as of this encounter
--- OUTSIDE RECORDS SUMMARY | 2025-06-06 11:20 | XMS_ITS | Encounter Summary ---
Author Organization Healthcare Address [address] [place] [address] Care Team Providers Care Clinical Dietitian Name Role Phone Lea Fernando Unavailable [phone] Rachel Ray ENGINEER SOILS Unavailable [phone] Alvarez Zimmer MD Primary Care Provider [phone] Tamera Isabel LPN Unavailable Unavailabl e Encounter Details Date Type Department Care Team (Latest Contact Info) Description 06/06/2025 11:20 AM EDT - 06/06/2025 11:59 PM EDT Hospital Encounter [facility] Radiology [address] [place] [address] Discharge Disposition: Home or Self Care Social [...] often do you attend chur ch or anabaptism services? Patient unable to answer 01/10/2025 Do you belong to any clubs o r organizations such as adventist groups, unions, fraternal or athletic groups, or [...] any time in the past 12 m [facility], were you homeless or living in a long term (including now)? No 03/06/2025 Humiliation, Afraid, Rape, [...] How often do you attend chur or anabaptism services? Never 05/29/2025 Do you belong to any clubs o r organizations such as adventist groups, unions, fraternal or athletic groups, or [...] more drinks on one occasion? Never 06/05/2025 [facility] - [...] any time in the past 12 m [facility], were you homeless or living in a long term (including now)? No 05/29/2025 CAGE ASSESSMENT Answer [...] drink first t kennedy in the morning (EYE-REMOTE ENCODING CENTER MANAGER) to steady your nerves or to [...] 1 03/01/2025 ergocalciferol (Vitamin D-2) 1.25 MG (46959 UT) capsuleIndications: Vitamin D deficiency Take 1 [...] Appointment [facility] Interventional Radiology [address] [place] [address] 06/27/2025 10:30 AM EDT Appointment [facility]iology [address] [place] [address] 07/04/2025 10:30 AM EDT Appointment [facility]iology [address] [place] [address] 07/04/2025 11:30 AM EDT Appointment [facility] Inter[facility] Radiology [address] [place] [address] 07/09/2025 2:40 PM EDT Office Visit [facility] [place] [address], [address] [place] [address] Ar Dominique MD [address] [facility] [address] [place] [address] 07/11/2025 10:30 AM EDT Appointment [facility] Inter[facility] Radiology [address] [place] [address] 07/11/2025 11:30 AM EDT Appointment [facility]iology [address] [place] [address] 07/18/2025 10:30 AM EDT Appointment [facility] [address] [place] [address] 07/18/2025 11:30 AM EDT Appointment [facility]iology [address] [place] [address] 07/25/2025 10:30 AM EDT Appointment [facility]iology [address] [place] [address] 07/25/2025 11:30 AM EDT Appointment [facility] Inter[facility] Radiology [address] [place] [address] 07/31/2025 9:00 AM EDT Office Visit [facility] [address] [place] [address] Alvarez Zimmer MD [address] [place] [address] 08/20/2025 9:30 AM EDT Clinical Support [facility] [place] [address] [address] 08/20/2025 10:30 AM EDT Social Work [facility] [place] [address] [address] [place] [address] 08/20/2025 11:00 AM EDT Office Visit [facility] [place] [address] [address] Jude Duque MD [address] [place] [address] 10/30/2025 1:20 PM EST Office Visit [facility] Endocrinology [address] [place] [address] Sharif Moreno, DPM [address] [place] [address] documented as of this encounter [...] on 06/06/2025 12:18 PM us Marianna Gordon ENGINEER SOILS IMG XR PROCEDURES Final Resu lt documented [...] documented as of this encounter Care Teams Clinical Dietitian Relationship Specialty Start Date End Date Alvarez Zimmer MD [address] [place] [address] PCP - General Family Medicine 12/07/24 Lea Fernando [address] [facility] [address] [place] [address] Supervisor Water Softener Service Endocrinology 08/29/24 Rachel Ray APRN [address] [place] [address] Nurse Practitioner Gastroenterology 09/24/24 Tamera Isabel LPN VALUE-BASED TRANSFORMATION PROGRAM Licensed Practical Nurse 05/29/25 documented as of this encounter
--- OUTSIDE RECORDS SUMMARY | 2025-06-11 10:30 | XMS_ITS | Encounter Summary ---
Author Organization [facility] Address [address] [place] [address] Care Team Providers Care Varnish Finisher Name Role Phone Lea Fernando Unavailable [phone] Rachel Ray IDENTITY MANAGEMENT DEVELOPER Unavailable [phone] Alvarez Zimmer MD Primary Care Provider [phone] Tamera Isabel KITCHEN STEWARD Unavailable Unavailabl e Reason for Visit * Consultation (Routine) - Closed Specialty Diagnoses / Procedures Referred By Contac t Referred To Contact Transplant Diagnoses End-stage liver disease (CMS/HCC) Gerson Arora MD [address] [address] Phone: tel: fax: [facility] [place] [address] [address] Phone: tel: fax: Referral ID Status Reason Start Date Expiration Date V isits Requested Visits Authorized [id number] Closed Specialty Services Required 05/14/2025 11/13/2026 1 1 Encounter Details Date Type Department Care Team (Late st Contact Info) Description 06/11/2025 10:30 AM EDT Social Work [facility] [address] [address] Lea Reilly, [place] [address] Social History Tobacco Use Types Packs/Day Years [...] week 01/10/2025 How often do you attend [facility] or muslim services? Patient unable to answer 01/10/2025 Do [...] any time in the past 12 m [facility], were you homeless or living in a chcf (including now)? No 03/06/2025 Humiliation, Afraid, Rape, [...] How often do you attend chur or muslim services? Never 05/29/2025 Do you belong to [...] on one occasion? Never 06/05/2025 [facility] [place] [facility] ional [facility] - Occupational Stress [...] any time in the past 12 m [facility], were you homeless or living in a chcf (including now)? No 05/29/2025 CAGE ASSESSMENT Answer [...] drink first t kennedy in the morning (EYE-REGISTERED NURSE CARDIOVASCULAR ICU) to steady your nerves or to get [...] pleasure in doing things Not at all 06/11/2025 10:59 AM EDT Suhail Stephen Feeling down, depressed, or hopeless Not at all 06/11/2025 10:59 AM EDT Suhail Stephen Patient Health Questionnaire -2 Score 0 06/11/2025 10:59 AM EDT Suhail Stephen * Question Answer Date of Assessment Author Trouble falling or staying asleep, or sleeping too much Several days 06/11/2025 10:59 AM EDT Suhail Stephen Feeling tired or having kamala le energy Several days 06/11/2025 10:59 AM EDT Suhail Stephen Poor appetite or overeating Several days 06/11/2025 10 :59 AM EDT Suhail Stephen Feeling bad about yourself - or that you are a failure or have let yourself or your family down Several days 06/11/2025 10:59 AM EDT Suhail Ramirez Trouble concentrating on thi ngs, such as reading the newspaper or watching television Several days 06/11/2025 10:59 AM EDT Suhail Stephen Moving or speaking so slowly that other people could have noticed? Or the opposite - being so fidgety or restless that you have been moving around a lot more than usual. Several days 06/11/2025 10:59 AM EDT Suhail Stephen Thoughts that you would be better off or hurting yourself in some way Not at all 06/11/2025 10:59 AM EDT Suhail Stephen Patient Health Questionnaire -9 Score 6 06/11/2025 10:59 AM EDT Suhail Stephen * If you checked off any problems on this questionnaire so far, Question Answer Date of Assessment Author How difficult have these problems made it for you to do your work, take care of things at home, or get along with other people? Somewhat difficult 06/11/2025 10:59 AM EDT Suhail Stephen * How difficult have these problems made it for you to do your work, take care of things at home, or get along with other people? Answer Date of Assessment Author Somewhat difficult 06/11/2025 10:59 AM EDT Suhail Garcia documented as of this encounter Miscellaneous Notes * Progress Notes - Lea Reilly LCSW - 06/11/2025 10:30 AM EDT SW met with pt and pt's son 06/12/25 in txp clinic for follow up. SW was added to f/u because at last clinic visit, pt and son (caregiver) were in active conflict, and son's willingness to remain caregiver was being discussed. Son voiced concerns with pt not taking her medical needs seriously as evidenced by her non compliance. Pt and son were recommended by provider at last clinic visit to take some time to determine whether or not son was still willing to act in this role. Since that visit, earlier this week, SW received message from pt's PCP stated that pt, family, and PCP have begun discussions about the need for possible placement in light of pt and family feeling that her needs have become greater than the care family can provide. This was discussed today with pt. Pt informed she hadreturned to living alone on a trial basis . She reports living alone was difficult and she continued to have problems remembering to take medication. Pt states worsening HE resulted in her going to ED on 05/31/25. When discharged, she returned to her home, with / care provided by mother. This last only a few days before her care became too much for mother to handle. Pt then returned to her sister's home in [place] where both sister and mother provided pt care. Pt states her mental status has continued to decline. Pt came to clinic with a note written by sister describing that pt is outof it she can't use her phone, can't remember how or what medicine she takes, doesn't know day or date, vision is poor. Pt reports her mental status has become so impaired that after using the bathroom, she didn't know how to wipe and used her bare hand. Pt states feeling scared that she isn't able to perform tasks mentally that were once simple. Pt reports being compliant with meds; however, it's bc her sister gives her her meds. Her sister does not know how to give her insulin (how much or how to administer) so pt has not been getting that. Pt reported to SW that at this point, she knows that living alone is not an option, and feels that even living with family is taking a toll on her family. Mother's blood pressure is significantly elevated since caring for pt, and sister (who is still on medical leave from her own job), is not able to manage her care adequately. Pt would like to consider placement in a palliative or nursing facility, but is afraid this will impact her ability to be listed for txp. Pt explained that at this time, her poor compliance and lack of caregiver that can manage her care are barriers to txp and encouraged her to consider placement options if she feels that is what is needed at this time to improve the quality of her life and medical care. SW shared this information with pt's Txp provider, who ultimately seemed to agree and informed PCP that the recommendation would be to consider a referral to palliative care. PCP informed he will make this referr al. SW can continue to follow while pt is in txp clinic, but pt may ultimately be referred to GI clinic for care in the future as it doesn't appear that pt will be an appropriate txp candidate. Can discuss further with team in liver selection committee. documented in this encounter Plan of Treatment Upcoming Encounters Date Type Department Care Team (Late st Contact Info) Description 06/27/2025 9:30 AM EDT Appointment [facility] Interventional Radiology [address] [place] [address] 06/27/2025 10:30 AM EDT Appointment [facility] Inter[facility] Radiology [address] [place] [address] 07/04/2025 10:30 AM EDT Appointment [facility] Inter[facility] Radiology [address] [place] [address] 07/04/2025 11:30 AM EDT Appointment [facility] Interventional Radiology [address] [place] [address] 07/09/2025 2:40 PM EDT Office Visit [facility] [address] [place] [address] Ar Dominique MD [address] [facility] [address] [place] [address] 07/11/2025 10:30 AM EDT Appointment [facility] Interventional Radiology [address] [place] [address] 07/11/2025 11:30 AM EDT Appointment [facility] Inter[facility] Radiology [address] [place] [address] 07/18/2025 10:30 AM EDT Appointment [facility] Radiology [address] [place] [address] 07/18/2025 11:30 AM EDT Appointment [facility] Radiology [address] [place] [address] 07/25/2025 10:30 AM EDT Appointment [facility]iology [address] [place] [address] 07/25/2025 11:30 AM EDT Appointment [facility] Inter[facility] Radiology [address] [place] [address] 07/31/2025 9:00 AM EDT Office Visit [address] [address] Alvarez Zimmer MD [address] [place] [address] 08/20/2025 9:30 AM EDT Clinical Support [facility] [place] [address] [place] [address] 08/20/2025 10:30 AM EDT Social Work [facility] [place] [address] [place] [address] [place] [address] 08/20/2025 11:00 AM EDT Office Visit [facility] [place] [address] [place] [address] Jude Duque MD [address] [place] [address] 10/30/2025 1:20 PM EST Office Visit [facility] Endocrinology [address] [place] [address] Sharif Moreno, DPM [address] [place] [address] documented as of this encounter Visit Diagnoses Not on filedocumented in this encounter Additional Health Concerns Assessment Noted Time PHQ-9 Depression Total Score: 6 06/11/20 25 10:59 AM EDT A fall risk assessment has been complete d for the patient 06/11/2025 10:59 AM EDT A Body Mass Index follow-up plan has been documented for the patient 06/11/2025 12:07 PM EDT documented as of this encounter Care Teams Varnish Finisher Relationship Specialty Start Date End Date Alvarez Zimmer MD [address] [place] [address] PCP - General Family Medicine 12/07/24 Lea Fernando [address] [place] [address] Lcsw Endocrinology 08/29/24 Rachel Ray APRN [address] [facility] [address] [place] [address] Nurse Practitioner Gastroenterology 09/24/24 Tamera Isabel LPN VALUE-BASED TRANSFORMATION PROGRAM Licensed Practical Nurse 05/29/25 documented as of this encounter
--- OUTSIDE RECORDS SUMMARY | 2025-06-11 11:20 | XMS_ITS | Encounter Summary ---
Author Organization Healthcare Address [address] [place] [address] Care Team Providers Care Lease Operator Name Role Phone Lea Fernando Unavailable [phone] Rachel Ray OIL PIPE INSPECTOR Unavailable [phone] Alvarez Zimmer MD Primary Care Provider [phone] Tamera Isabel RADIUS CORNER MACHINE OPERATOR Unavailable Unavailabl e Reason for Visit * Reason Comments Pre-Liver Txp Follow-up Encounter Details Date Type Department Care Team (Latest Contact Info) Description 06/11/2025 11:20 AM EDT Office Visit [facility] [address] [place] [address] Octavia Herrera PA [address] [facility] [address] [place] [address] Hepatic encephalopathy (CMS/HCC) (Primary Dx); [...] often do you attend chur ch or worship services? Patient unable to answer 01/10/2025 Do you belong to any clubs o r organizations such as evangelical groups, unions, fraternal or athletic groups, or [...] time in the past 12 m [facility], were you homeless or living in a long-term (including now)? No 03/06/2025 Humiliation, Afraid, Rape, [...] week 05/29/2025 How often do you attend [facility] or worship services? Never 05/29/2025 Do you belong to any clubs o r organizations such as evangelical groups, unions, fraternal or athletic groups, or [...] more drinks on one occasion? Never 06/05/2025 [facility] of Occupat ional Health - Occupational Stress [...] time in the past 12 m [facility], were you homeless or living in a long-term (including now)? No 05/29/2025 CAGE ASSESSMENT Answer [...] t kennedy in the morning (EYE-DIRECTOR OF PREMIUM SEAT SALES) to steady your nerves or to get [...] is when she was living alone in [place]. Reports she didn't know what she was doing, time, day, etc. Now staying with sister in [place]. Reports she has ordered a button thing [...] zofran She was seen 11/07/[address] Harris [...] fatty liver since 1996. Had admission to [facility] for hepatic encephalopathy in [...] onher monitor and reached out to her curing bin operator and they have been adjusting. # Osteoporosis - DEXA scan done today showed osteoporosis Health Maintenance: Immune to Hep A, nonimmune to hep B. Needs Hep B vaccine but could not be given in transplant clinic due to her insurance. Instructed her to obtain at [facility] She reports that she had a colonoscopy done a year ago at [facility] in [place]. Colonoscopy 09/2019- report reviewed and showed left [...] Appointment [facility] [address] [place] [address] 06/27/2025 10:30 AM EDT Appointment [facility] [address] [place] [address] 07/04/2025 10:30 AM EDT Appointment [facility] [address] [place] [address] 07/04/2025 11:30 AM EDT Appointment [facility] [address] [place] [address] 07/09/2025 2:40 PM EDT Office Visit [facility] [address] [facility], [address] [place] [address] Ar Dominique MD [address] [place] [address] 07/11/2025 10:30 AM EDT Appointment [facility] [address] [place] [address] 07/11/2025 11:30 AM EDT Appointment [facility] [address] [place] [address] 07/18/2025 10:30 AM EDT Appointment [facility] [address] [place] [address] 07/18/2025 11:30 AM EDT Appointment [facility] [address] [place] [address] 07/25/2025 10:30 AM EDT Appointment [facility] [address] [place] [address] 07/25/2025 11:30 AM EDT Appointment [facility] [address] [place] [address] 07/31/2025 9:00 AM EDT Office Visit [facility] [address] [place] [address] Alvarez Zimmer MD [address] [place] [address] 08/20/2025 9:30 AM EDT Clinical Support [facility] [address] [place] [address] 08/20/2025 10:30 AM EDT Social Work [facility] [place] [address] [place] [address] [place] [address] 08/20/2025 11:00 AM EDT Office Visit [facility] [place] [address] [place] [address] Jude Duque MD [address] [place] [address] 10/30/2025 1:20 PM EST Office Visit [facility] [address] [place] [address] Sharif Moreno, ROSY [address] [place] [address] documented as [...] documented as of this encounter Care Teams Lease Operator Relationship Specialty Start Date End Date Alvarez Zimmer MD [address] [place] [id number] PCP - General Family Medicine 12/07/24 Lea Fernando [address] [place] [address] Architectural Inspector Endocrinology 08/29/24 Rachel Ray APRN [address] [facility] [address] [place] [address] Nurse Practitioner Gastroenterology 09/24/24 Tamera Isabel, RADIUS CORNER MACHINE OPERATOR VALUE-BASED TRANSFORMATION PROGRAM Licensed Practical Nurse 05/29/25 documented as of this encounter
--- OUTSIDE RECORDS SUMMARY | 2025-06-13 10:56 | XMS_ITS | Encounter Summary ---
Author Organization [facility] Address [address] [id number] Care Team Providers Care Director Digital Sales Name Role Phone Lea Fernando Unavailable [phone] Rachel Ray TOPOLOGY PROFESSOR Unavailable [phone] Alvarez Zimmer MD Primary Care Provider [phone] Tamera Isabel LPN Unavailable Unavailabl e Reason for Referral * Clinic-Administered Medication (Routine) - Closed Specialty Diagnoses / Procedures Referred By Contherbert t Referred To Contact Diagnoses Other ascites Procedures MI ABDOM PARACENTESIS DX/THER W IMAGING GUIDANCE Shaniqua Mccurdy APRN [address] [place] [address] Phone: tel: fax: [facility] [address] [place] [address] Phone: tel: fax: Referral ID Status Reason Start Date Expiration Date Visits Re quested Visits Authorized [id number] Closed 06/13/2025 12/13/2026 1 1 * Imaging (Routine) - Closed Specialty Diagnoses / Procedures Referred By Contherbert t Referred To Contact Radiology Diagnoses Other ascites Procedures US Guided Thoracentesis Marianna Gordon APRN [address] [place] [address] Phone: tel: fax: Referral ID Status Reason Start Date Expiration Date Visits Re quested Visits Authorized [id number] Closed 05/22/2025 11/21/2026 1 1 * Imaging (Routine) - Closed Specialty Diagnoses / Procedures Referred By Eder zhu Referred To Contact Radiology Diagnoses Other ascites Procedures US Guided Abdominal Paracentesis Marianna Gordon APRN [address] [place] [address] Phone: tel: fax: Referral ID Status Reason Start Date Expiration Date Visits Re quested Visits Authorized [id number] Closed 05/22/2025 11/21/2026 1 1 Reason for Visit * Imaging (Routine) - Closed Specialty Diagnoses / Procedures Referred By Eder zhu Referred To Contact Radiology Diagnoses Other ascites Procedures US Guided Abdominal Paracentesis Marianna Gordon APRN [address] [place] [address] Phone: tel: fax: Referral ID Status Reason Start Date Expiration Date Visits Re quested Visits Authorized [id number] Closed 05/22/2025 11/21/2026 1 1 Encounter Details Date Type Department Care Team (Latest Contact Info) Description 06/13/2025 10:56 AM EDT - 06/13/2025 1:31 PM EDT Hospital Encounter [facility] Interventional Radiology [address] [place] [address] Alvarez Mcclure Other ascites Discharge Disposition: Home [...] often do you attend chur ch or cheondoism services? Patient unable to answer 01/10/2025 Do you belong to any clubs o r organizations such as gnosticism groups, unions, fraternal or athletic groups, or [...] any time in the past 12 m [facility], were you homeless or living in a [...] How often do you attend [facility] or cheondoism services? Never 05/29/2025 Do you belong to any clubs o r organizations such as gnosticism groups, unions, fraternal or athletic groups, or [...] more drinks on one occasion? Never 06/05/2025 [facility] [place] of Occupat ional Health - Occupational Stress [...] any time in the past 12 m [facility], were you homeless or living in a [...] drink first t kennedy in the morning (EYE-LADIES SUIT OPERATOR) to steady your nerves or to get rid of a hangover? 0 10/22/2024 CAGE Questionnaire Score 0 024 Utilities Answer Date Recorded In the past 12 months has th e [employer], gas, oil, or water company threatened to [...] 1 03/01/2025 ergocalciferol (Vitamin D-2) 1.25 MG (63150 UT) capsuleIndications: Vitamin D deficiency Take 1 [...] Notes * Post-Procedure Note - Shaniqua Mccurdy, TOPOLOGY PROFESSOR - 06/13/2025 12:30 PM EDT Vascular and [...] are consistent with and integrated into the [place] [employer] the [employer] of Liver Diseases [...] is no recent study available for direct masc-et-oknu comparison. 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 Marianna Gordon APRN Interventional Radiology [phone] [1] Past Medical History: Diagnosis Date ADHD (attention deficit hyperactivity disorder) Allergic Anxiety disorder, unspecified Anxiety Bleeding gums Blood in urine Cataract Chronic kidney disease Cirrhosis (CMS/HCC) Colon cancer screening 09/20/2019 Added automatically from request for surgery [id number] Coronary artery disease Depression 1995 Diabetes mellitus [...] 1979 BLADDER SURGERY N/A Bladder surgery from [facility] BREAST BIOPSY 2011 BREAST SURGERY 2010 BUNIONECTOMY Right CATARACT EXTRACTION Bilateral 2016 CHOLECYSTECTOMY 1980 ESOPHAGOGASTRODUODENOSCOPY HYSTERECTOMY N/A Hysterectomy from [facility] KNEE SURGERY Bilateral ORAL SURGERY N/A Oral surgery from [facility] OTHER SURGICAL HISTORY 2015 ROOT CANAL WISDOM [...] Rfl: 1 ergocalciferol (Vitamin D-2) 1.25 MG (03915 UT) capsule, Take 1 capsule by mouth [...] Upcoming Encounters Date Type Department Care Team ([facility] st Contact Info) Description 06/27/2025 9:30 AM EDT Appointment [facility] Interventional Radiology [address] [place] [address] 06/27/2025 10:30 AM EDT Appointment [facility] Radiology [address] [place] [address] 07/04/2025 10:30 AM EDT Appointment [facility] Radiology [address] [place] [address] 07/04/2025 11:30 AM EDT Appointment [facility] Inter[facility] Radiology [address] [place] [address] 07/09/2025 2:40 PM EDT Office Visit [facility] [address], [address] [place] [address] Ar Dominique MD [address] [facility] [address] [place] [address] 07/11/2025 10:30 AM EDT Appointment [facility] Inter[facility] Radiology [address] [place] [address] 07/11/2025 11:30 AM EDT Appointment [facility]iology [address] [place] [address] 07/18/2025 10:30 AM EDT Appointment [facility]iology [address] [place] [address] 07/18/2025 11:30 AM EDT Appointment [facility]iology [address] [place] [address] 07/25/2025 10:30 AM EDT Appointment [facility] [address] [place] [address] 07/25/2025 11:30 AM EDT Appointment [facility]iology [address] [place] [address] 07/31/2025 9:00 AM EDT Office Visit [facility] [address] [place] [address] Alvarez Zimmer MD [address] [place] [address] 08/20/2025 9:30 AM EDT Clinical Support [facility] [place] [address] [place] [address] 08/20/2025 10:30 AM EDT Social Work [facility] [place] [address] [place] [address] Deysi Ortega [place], [place] [id number] 08/20/2025 11:00 AM EDT Office Visit [facility] [place] [address] [place] [address] Jude Dquue MD [address] [place] [address] 10/30/2025 1:20 PM EST Office Visit [facility] Endocrinology [address] [place] [address] Sharif Moreno, DPNicole [address] [place] [address] documented as of this encounter Procedures Procedure [...] on 06/13/2025 1:49 PM us Shaniqua Mccurdy TOPOLOGY PROFESSOR IMG XR PROCEDURES Final Resu lt * [...] by ascites and intermittent hepatic hydrothorax. TECHNIQUE: Executive Account Manager: Shaniqua Mccurdy APRN Secondary Manager Mental Health: None. Nurse: Bao Technologist: Kalina Phillips Dose: [...] complicated by ascites and intermittenthepatic hydrothorax. TECHNIQUE: Executive Account Manager: Shaniqua Mccurdy APRN Secondary Manager Mental Health: None. Nurse: Bao Technologist: Kalina Phillips Dose: [...] pleural fluid. [email or web address]. A total of 2.1 L [...] 06/13/2025 3:40 PM us Marianna N Gabrielaeks TOPOLOGY PROFESSOR IMG US PROCEDURES Final Resu lt [...] by ascites and intermittent hepatic hydrothorax. TECHNIQUE: Executive Account Manager: Shaniqua Mccurdy APRN Secondary Manager Mental Health: None. Nurse: Bao Technologist: Kalina Phillips Dose: [...] complicated by ascites and intermittenthepatic hydrothorax. TECHNIQUE: Executive Account Manager: Shaniqua Mccurdy APRN Secondary Manager Mental Health: None. Nurse: Bao Technologist: Kalina Phillips Dose: [...] LAB HEMATOLOGY METHOD 06/14/2025 3:20 PM EDT [facility] Specimen Source, Body Fluid Peritoneal Fluid LAB HEMATOLOGY METHOD 06/14/2025 3:20 PM EDT [facility] Clinical Diagnosis, Body Fluid Ascites LAB HEMATOLOGY METHOD 06/14/2025 3:20 PM EDT [facility] Interpretation , Body Fluid No evidence of malignancy Predominantly chronic inflammatory cells Light blood A resident was involved in the service. I attest I examined the relevant preparations for the specimens and confirmed the diagnosis or interpretation. 06/14/2025 3:20 PM EDT [facility] Pathologist Signature, Body Fluid 06/14/2025 3:20 PM EDT [facility] Comment:Reviewed by: Kadie dobbs MD LAB CP ASR DISCLAIMER Yes 06/14/2025 3:20 PM EDT [facility] Body Fluid Peritoneal fluid / Unknown Non-blood Collection / Unknown 06/13/2025 12:35 PM EDT 06/13/2025 3:20 PM EDT us Shaniqua Mccurdy TOPOLOGY PROFESSOR LAB BODY FLUIDS AND STOOLS O RDERABLES Final Result [facility] [address] [place] [address] * Glucose - Ascites (06/13/2025 12:35 PM EDT) Glucose, Fluid 179 mg/dL 06/13/2025 4:01 PM EDT [facility] Peritoneal Fluid Peritoneal cavity structure / Unknown Non-blood Collection / Unknown 06/13/2025 12:35 PM EDT 06/13/2025 3:20 PM EDT Narrative [facility] - 06/13/2025 4:01 PM EDT Peritoneal/Ascites [...] Glucose < 50 mg/dL. us Shaniqua Mccurdy TOPOLOGY PROFESSOR LAB BODY FLUIDS AND STOOLS O RDERABLES Final Result [facility] [address] [place] [address] * Protein - Ascites (06/13/2025 12:35 PM EDT) Total Protein, Fluid 0.7 g/dL 06/13/2025 4:01 PM EDT [facility] Peritoneal Fluid Peritoneal cavity structure / Unknown Non-blood Collection / Unknown 06/13/2025 12:35 PM EDT 06/13/2025 3:20 PM EDT Narrative [facility] - 06/13/2025 4:01 PM EDT This test was developed and its performance characteristics determined by [facility]. The U.S. Food and Drug Administration has not approved or cleared this test. However, FDA clearance or approval is not currently required for clinical use. The results are not intended to be used as the sole means for clinical diagnosis or patient management decisions. Shaniqua Nicole Mccurdy TOPOLOGY PROFESSOR LAB BODY FLUIDS AND STOOLS O RDERABLES Final Result Performing Organization Address City/[facility]/ZIP Co de Phone Number [facility] [address] [place] [address] * (ABNORMAL) Body Fluid Cell Count With Diff - Ascites (06/13/2025 12:35 PM EDT) Color, Body fluid Aubrey LAB HEMATOLOGY METHOD 06/13/2025 6:15 PM EDT [facility] Appearance, Body fluid Cloudy(A) LAB HEMATOLOGY METHOD 06/13/2025 6:15 PM EDT [facility] Volume, Body fluid 9.5 cc LAB HEMATOLOGY METHOD 06/13/2025 6:15 PM EDT [facility] Fluid Container Tube 1 LAB HEMATOLOGY METHOD 06/13/2025 6:15 PM EDT [facility] Red Blood Cell Count, Body fluid 7,000 uL LAB HEMATOLOGY METHOD 06/13/2025 6:15 PM EDT [facility] Total Nucleated Cell Count, Body fluid 152 uL LAB HEMATOLOGY METHOD 06/13/2025 6:15 PM EDT [facility] Neutrophils %, Body fluid 2 % LAB HEMATOLOGY METHOD 06/13/2025 6:15 PM EDT [facility] Lymphocytes %, Body fluid 84 % LAB HEMATOLOGY METHOD 06/13/2025 6:15 PM EDT [facility] Monocytes/Macro phages %, Body fluid 10 % LAB HEMATOLOGY METHOD 06/13/2025 6:15 PM EDT [facility] Eosinophils %, Body fluid 1 % LAB HEMATOLOGY METHOD 06/13/2025 6:15 PM EDT [facility] Lining/Mesothel ial Cells %, Body fluid 3 % LAB HEMATOLOGY METHOD 06/13/2025 6:15 PM EDT [facility] Neutrophils Absolute (PMN), Body fluid 3 uL LAB HEMATOLOGY METHOD 06/13/2025 6:15 PM EDT [facility] Lymphocytes Absolute, Body fluid 128 uL LAB HEMATOLOGY METHOD 06/13/2025 6:15 PM EDT [facility] Monocytes/Macro phages Absolute, Body fluid 15 uL LAB HEMATOLOGY METHOD 06/13/2025 6:15 PM EDT [facility] Eosinophils Absolute, Body fluid 2 uL LAB HEMATOLOGY METHOD 06/13/2025 6:15 PM EDT [facility] Basophils Absolute, Body fluid 0 uL LAB HEMATOLOGY METHOD 06/13/2025 6:15 PM EDT [facility] Lining/Mesothel ial Cells Absolute, Body fluid 5 uL LAB HEMATOLOGY METHOD 06/13/2025 6:15 PM EDT [facility] Comment, Body fluid None LAB HEMATOLOGY METHOD 06/13/2025 6:15 PM EDT [facility] Comment:This is an appended report. These results have been appended to a previously preliminary verified report. Basophils %, Body fluid 0 % LAB HEMATOLOGY METHOD 06/13/2025 6:15 PM EDT [facility] Body Fluid Peritoneal fluid / Unknown Non-blood Collection / Unknown 06/13/2025 12:35 PM EDT 06/13/2025 3:20 PM EDT us Shaniqua Mccurdy APRN LAB BODY FLUIDS AND STOOLS ORDERABLES NO SPECIMEN TYPE/SOURCE Final Result [facility] [address] [place] [address] documented in this encounter Visit Diagnoses Diagnosis [...] as of this encounter Care Teams Director Digital Sales Relationship Specialty Start Date End Date Alvarez Zimmer MD [address] [place] [address] PCP - General Family Medicine 12/07/24 Lea Fernando [address] [facility] [address] [place] [address] Shopping Centre Manager Endocrinology 08/29/24 Rachel Ray, TOPOLOGY PROFESSOR [address] [place] [address] Nurse Practitioner Gastroenterology 09/24/24 Tamera Isabel LPN VALUE-BASED TRANSFORMATION PROGRAM Licensed Practical Nurse 05/29/25 documented as of this encounter
--- OUTSIDE RECORDS SUMMARY | 2025-06-13 13:32 | XMS_ITS | Encounter Summary ---
Author Organization Healthcare Address [address] [place] [address] Care Team Providers Care Tube Buffer Name Role Phone Lea Fernando Unavailable [phone] Rachel Ray PROCESS MECHANIC Unavailable [phone] Alvarez Zimmer MD Primary Care Provider [phone] Tamera Isabel LPN Unavailable Unavailabl e Encounter Details Date Type Department Care Team (Latest Contact Info) Description 06/13/2025 1:32 PM EDT - 06/13/2025 11:59 PM EDT Hospital Encounter [facility] Radiology [address] [place] [address] Discharge Disposition: Home or Self Care Social [...] often do you attend chur ch or baptist services? Patient unable to answer 01/10/2025 Do [...] any time in the past 12 m [facility], were you homeless or living in a penitentiary (including now)? No 03/06/2025 Humiliation, Afraid, Rape, [...] How often do you attend chur or baptist services? Never 05/29/2025 Do you belong to [...] more drinks on one occasion? Never 06/05/2025 [facility] of Occupat ional Health - Occupational [...] any time in the past 12 m [facility], were you homeless or [...] drink first t kennedy in the morning (EYE-MANAGER TECHNICAL TRAINING) to steady your nerves or to get [...] capsule by mouth daily. 30 capsule 06/10/2025 6 calcium carbonate EX (Tums E-X) 750 [...] 1 03/01/2025 ergocalciferol (Vitamin D-2) 1.25 MG (91350 UT) capsuleIndications: Vitamin D deficiency Take 1 [...] nausea or vomiting. 60 tablet 2 05/07/2025 rifAXIMin (Xifaxan) 550 MG tabletIndications:L iver cirrhosis [...] 2 03/01/2025 documented as of this encounter Plan of Treatment Upcoming Encounters Date Type Department Care Team (Late st Contact Info) Description 06/27/2025 9:30 AM EDT Appointment [facility] Interventional Radiology [address] [place] [address] 06/27/2025 10:30 AM EDT Appointment [facility] Inter[facility] Radiology [address] [place] [address] 07/04/2025 10:30 AM EDT Appointment [facility] Inter[facility] Radiology [address] [place] [address] 07/04/2025 11:30 AM EDT Appointment [facility] Inter[facility] Radiology [address] [place] [address] 07/09/2025 2:40 PM EDT Office Visit [facility] [address] [place] [address] Ar Dominique MD [address] [facility] [address] [facility] [address] [place] [address] 07/11/2025 10:30 AM EDT Appointment [facility] Inter[facility]iology [address] [place] [address] 07/11/2025 11:30 AM EDT Appointment [facility] [address] [place] [address] 07/18/2025 10:30 AM EDT Appointment [facility] [address] [place] [address] 07/18/2025 11:30 AM EDT Appointment [facility]iology [address] [place] [address] 07/25/2025 10:30 AM EDT Appointment [facility] [address] [place] [address] 07/25/2025 11:30 AM EDT Appointment [facility]iology [address] [place], [place] [address] 07/31/2025 9:00 AM EDT Office Visit [facility] [address] [place] [address] Alvarez Zimmer MD [address] [place] [address] 08/20/2025 9:30 AM EDT Clinical Support [facility] [place] [address] [place] [address] 08/20/2025 10:30 AM EDT Social Work [facility] [address] [place] [address] [place] [address] 08/20/2025 11:00 AM EDT Office Visit [facility] [place] [address] [place] [address] Jude Duque MD [address] [place] [address] 10/30/2025 1:20 PM EST Office Visit [facility] Endocrinology [address] [place] [address] Sharif Moreno S, DPM [address] [place] [address] documented as of this encounter Procedures Procedure Name Priority Date/Time Associated Diagnosis Comments XR CHEST 1 VIEW STAT 06/13/2025 1:45 PM EDT documented in this encounter Results [...] Alvarez Brenner MD on 06/13/2025 1:49 PM Shaniqua Mccurdy PROCESS MECHANIC IMG XR PROCEDURES Final Resu lt documented [...] documented as of this encounter Care Teams Tube Buffer Relationship Specialty Start Date End Date Alvarez Zimmer MD [address] [place] [address] PCP - General Family Medicine 12/07/24 Lea Fernando [address] [place] [address] Boxing And Pressing Supervisor Endocrinology 08/29/24 Rachel Ray APRN [address] [facility] [facility] [address] [place] [address] Nurse Practitioner Gastroenterology 09/24/24 Tamera Isabel LPN VALUE-BASED TRANSFORMATION PROGRAM Licensed Practical Nurse 05/29/25 documented as of this encounter
--- OUTSIDE RECORDS SUMMARY | 2025-06-20 09:03 | XMS_ITS | Encounter Summary ---
Author Organization Healthcare Address [address] [place] [address] Care Team Providers Care Food Service Order Clerk Name Role Phone Lea Fernando Unavailable [phone] Rachel Ray QUALITY LAB TECHNICIAN Unavailable [phone] Alvarez Zimmer MD Primary Care Provider [phone] Tamera Isabel LPN Unavailable Unavailabl e Reason for Referral * Imaging (Routine) - Closed Specialty Diagnoses / Procedures Referred By Eder zhu Referred To Contact Radiology Diagnoses Other ascites Procedures US Guided Abdominal Paracentesis Preeti Andersen APRN [address] [place] [address] Phone: tel: fax: Referral ID Status Reason Start Date Expiration Date Visits Re quested Visits Authorized [id number] Closed 06/20/2025 12/20/2026 1 1 * Clinic-Administered Medication (Routine) - Closed Specialty Diagnoses / Procedures Referred By Eder zhu Referred To Contact Diagnoses Other ascites Procedures HI ABDOM PARACENTESIS DX/THER W IMAGING GUIDANCE Preeti Andersen APRN [address] [place] [address] Phone: tel: fax: [facility] [address] [place] [address] Phone: tel: fax: Referral ID Status Reason Start Date Expiration Date Visits Re quested Visits Authorized [id number] Closed 06/20/2025 12/20/2026 1 1 * Imaging (Routine) - Closed Specialty Diagnoses / Procedures Referred By Eder zhu Referred To Contact Radiology Diagnoses Other ascites Procedures US Guided Thoracentesis Marianna Gordon APRN [address] [place] [address] Phone: tel: fax: Referral ID Status Reason Start Date Expiration Date Visits Re quested Visits Authorized [id number] Closed 05/23/2025 11/22/2026 1 1 Reason for Visit * Imaging (Routine) - Closed Specialty Diagnoses / Procedures Referred By Eder zhu Referred To Contact Radiology Diagnoses Other ascites Procedures US Guided Abdominal Paracentesis Marianna Gordon APRN [address] [place] [address] Phone: tel: fax: Referral ID Status Reason Start Date Expiration Date Visits Re quested Visits Authorized [id number] Closed 04/26/2025 10/26/2026 1 1 Encounter Details Date Type Department Care Team (Latest Contact Info) Description 06/20/2025 9:03 AM EDT - 06/20/2025 1:03 PM EDT Hospital Encounter [facility] [address] [place] [address] Shanthi Rooney Other ascites Discharge Disposition: Home [...] often do you attend chur ch or taoism services? Patient unable to answer 01/10/2025 Do you belong to any clubs o r organizations such as orthodox groups, unions, fraternal or athletic groups, or [...] in a residential (including now)? No 03/06/2025 Humiliation, Afraid, Rape, [...] week 05/29/2025 How often do you attend [facility] or taoism services? Never 05/29/2025 Do you belong to any clubs o r organizations such as orthodox groups, unions, fraternal or athletic groups, or [...] more drinks on one occasion? Never 06/05/2025 [facility] [place] of Occupat ional Health - Occupational Stress [...] living in a residential (including now)? 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 [address] Discharge Instructions for Paracentesis Paracentesis is a [...] fainting. Last Reviewed Date: 2025 00:00:00 ?? 1709-2036 [employer]. All rights reserved. This information is not [...] Appointment [facility] [address] [place] [address] 06/27/2025 10:30 AM EDT Appointment [facility] [address] [place] [address] 07/04/2025 10:30 AM EDT Appointment [facility] [address] [place] [address] 07/04/2025 11:30 AM EDT Appointment [facility] [address] [place] [address] 07/09/2025 2:40 PM EDT Office Visit Professional [employer] [facility] [address], [address] [place] [address] Ar Dominique MD [address] [place] [address] 07/11/2025 10:30 AM EDT Appointment [facility] [address] [place] [address] 07/11/2025 11:30 AM EDT Appointment [facility] [address] [place] [address] 07/18/2025 10:30 AM EDT Appointment [facility] [address] [place] [id number] 07/18/2025 11:30 AM EDT Appointment [facility] [address] [place] [address] 07/25/2025 10:30 AM EDT Appointment [facility] [address] [place] [address] 07/25/2025 11:30 AM EDT Appointment [facility] [address] [place] [address] 07/31/2025 9:00 AM EDT Office Visit [address] [address] Alvarez Zimmer MD [address] [place] [address] 08/20/2025 9:30 AM EDT Clinical Support [facility] [address] [place] [address] 08/20/2025 10:30 AM EDT Social Work [facility] [address] [place] [address] [place] [address] 08/20/2025 11:00 AM EDT Office Visit [facility] [address] [place] [address] Jude Duque MD [address] [place] [address] 10/30/2025 1:20 PM EST Office Visit [facility] [address] [place] [address] Sharif Moreno, DPNicole [address] [place] [address] documented as of this encounter [...] on 06/20/2025 2:13 PM us Preeti Andersen APRN IMG XR PROCEDURES Final Result * US [...] by ascites and intermittent hepatic hydrothorax. TECHNIQUE: Ride Attendant: ADRI Andersen Secondary Wire Drawer: None. Nurse: Padmini Technologist: Lilliana Phillips Dose: [...] complicated by ascites and intermittent hepatichydrothorax. TECHNIQUE: Ride Attendant: ADRI Andersen Secondary Wire Drawer: None. Nurse: Padmini Technologist: Lilliana Phillips Dose: [...] to permanentstorage in PACS. A total of 4.3 liters [...] on 06/23/2025 9:14 PM us Preeti Andersen QUALITY LAB TECHNICIAN IMG US PROCEDURES Final Result * US [...] by ascites and intermittent hepatic hydrothorax. TECHNIQUE: Ride Attendant: ADRI Andersen Secondary Wire Drawer: None. Nurse: Padmini Technologist: Lilliana Phillips Dose: [...] complicated by ascites and intermittent hepatichydrothorax. TECHNIQUE: Ride Attendant: ADRI Andersen Secondary Wire Drawer: None. Nurse: Padmini Technologist: Lilliana Phillips Dose: [...] on 06/23/2025 9:14 PM us Marianna Gordon QUALITY LAB TECHNICIAN IMG US PROCEDURES Final Resu lt * Body fluid, cytospin, pathologist interpretation (06/20/2025 12:03 PM EDT) Specimen Type Body Fluid LAB HEMATOLOGY METHOD 06/21/2025 4:37 PM EDT [facility] Specimen Source, Body Fluid Pleural, Right LAB HEMATOLOGY METHOD 06/21/2025 4:37 PM EDT [facility] Clinical Diagnosis, Body Fluid Pleural effusion LAB HEMATOLOGY METHOD 06/21/2025 4:37 PM EDT [facility] Interpretation , Body Fluid No evidence of malignancy Chronic inflammatory cells Lymphocytosis Moderate blood A resident was involved in the service. I attest I examined the relevant preparations for the specimens and confirmed the diagnosis or interpretation. 06/21/2025 4:37 PM EDT [facility] Pathologist Signature, Body Fluid 06/21/2025 4:37 PM EDT [facility] Comment:Reviewed by: Kadie dobbs MD LAB CP ASR DISCLAIMER Yes 06/21/2025 4:37 PM EDT [facility] Body Fluid Structure of right pleural cavity / Unknown Non-blood Collection / Unknown 06/20/2025 12:03 PM EDT 06/20/2025 2:44 PM EDT Preeti Andersen QUALITY LAB TECHNICIAN LAB BODY FLUIDS AND STO OLS ORDERABLES Final Result [facility] [address] [place] [address] * Lactate Dehydrogenase, Pleural Fluid - Right (06/20/2025 12:03 PM EDT) LDH, Fluid 57 U/L 06/20/2025 5:36 PM EDT [facility] Pleural Fluid Structure of right pleural cavity / Unknown Non-blood Collection / Unknown 06/20/2025 12:03 PM EDT 06/20/2025 2:44 PM EDT Narrative [facility] - 06/20/2025 5:36 PM [...] the following criteria are present: (1) pleural vexey-ln-agiqi protein ratio of >0.5, (2) pleural zhmbz-nz-ucukk LDH ratio of >0.6, or (3) a pleural fluid LDH activity that is >2/3 the upper limit of a normal serum LDH activity. Light's criteria may misclassify ~25% of transudates as exudates in heart failure. These can be identified by calculating a gcapf-gh-cyyzjds albumin gradient (>1.2 g/dL) and/or a cvdvp-tm-ajyzv protein gradient (>3.1 g/dL). Preeti Andersen APRN LAB BODY FLUIDS AND STO OLS ORDERABLES Final Result Performing Organization Address [facility] de Phone Number [facility] [address] [place] [address] * Total Protein, Pleural Fluid - Pleural Right (06/20/2025 12:03 PM EDT) Total Protein, Fluid 1 g/dL 06/20/2025 5:36 PM EDT [facility] Pleural Fluid Structure of right pleural cavity / Unknown Non-blood Collection / Unknown 06/20/2025 12:03 PM EDT 06/20/2025 2:44 PM EDT Narrative [facility] - 06/20/2025 5:36 PM EDT This test was developed and its performance characteristics determined by [facility]. The U.S. Food and Drug Administration has not approved or cleared this test. However, FDA clearance or approval is not currently required for clinical use. The results are not intended to be used as the sole means for clinical diagnosis or patient management decisions. Preeti Andersen APRN LAB BODY FLUIDS AND STO Skillz ORDERABLES Final Result Performing Organization Address [facility] Phone Number [facility] [address] [place] [address] * Body Fluid Culture and Gram Stain - Pleural Right (06/20/2025 12:03 PM EDT) Culture No growth at day 4 2024 10:34 AM EDT [facility] Gram Stain Result No organisms seen 06/23/2025 10:34 AM EDT [facility] Gram Stain Result No polymorphonuclear leukocytes seen 06/23/2025 10:34 AM EDT [facility] Pleural Fluid Specimen from pleura obtained by thoracentesis / Unknown Non-blood Collection / Unknown 06/20/2025 12:03 PM EDT 06/20/2025 2:53 PM EDT Preetilee Andersen QUALITY LAB TECHNICIAN LAB MICROBIOLOGY - GENE RAL ORDERABLES Final Result [facility] [address] [place] [address] * (ABNORMAL) Body Fluid Cell Count w/ Diff - Pleural Right (06/20/2025 12:03 PM EDT) Color, Body fluid Red LAB HEMATOLOGY METHOD 06/20/2025 8:20 PM EDT [facility] Appearance, Body fluid Cloudy(A) LAB HEMATOLOGY METHOD 06/20/2025 8:20 PM EDT [facility] Volume, Body fluid 5.8 cc LAB HEMATOLOGY METHOD 06/20/2025 8:20 PM EDT [facility] Fluid Container Tube 2 LAB HEMATOLOGY METHOD 06/20/2025 8:20 PM EDT [facility] Red Blood Cell Count, Body fluid 18,000 uL LAB HEMATOLOGY METHOD 06/20/2025 8:20 PM EDT [facility] Total Nucleated Cell Count, Body fluid 204 uL LAB HEMATOLOGY METHOD 06/20/2025 8:20 PM EDT [facility] Neutrophils %, Body fluid 0 % LAB HEMATOLOGY METHOD 06/20/2025 8:20 PM EDT [facility] Lymphocytes %, Body fluid 91 % LAB HEMATOLOGY METHOD 06/20/2025 8:20 PM EDT [facility] Monocytes/Macro phages %, Body fluid 6 % LAB HEMATOLOGY METHOD 06/20/2025 8:20 PM EDT [facility] Eosinophils %, Body fluid 1 % LAB HEMATOLOGY METHOD 06/20/2025 8:20 PM EDT [facility] Lining/Mesothel ial Cells %, Body fluid 2 % LAB HEMATOLOGY METHOD 06/20/2025 8:20 PM EDT [facility] Neutrophils Absolute (PMN), Body fluid 0 uL LAB HEMATOLOGY METHOD 06/20/2025 8:20 PM EDT [facility] Lymphocytes Absolute, Body fluid 186 uL LAB HEMATOLOGY METHOD 06/20/2025 8:20 PM EDT [facility] Monocytes/Macro phages Absolute, Body fluid 12 uL LAB HEMATOLOGY METHOD 06/20/2025 8:20 PM EDT [facility] Eosinophils Absolute, Body fluid 2 uL LAB HEMATOLOGY METHOD 06/20/2025 8:20 PM EDT [facility] Basophils Absolute, Body fluid 0 uL LAB HEMATOLOGY METHOD 06/20/2025 8:20 PM EDT [facility] Lining/Mesothel ial Cells Absolute, Body fluid 4 uL LAB HEMATOLOGY METHOD 06/20/2025 8:20 PM EDT [facility] Basophils %, Body fluid 0 % LAB HEMATOLOGY METHOD 06/20/2025 8:20 PM EDT [facility] Body Fluid Structure of right pleural cavity / Unknown Non-blood Collection / Unknown 06/20/2025 12:03 PM EDT 06/20/2025 2:44 PM EDT us Preeti Andersen APRN LAB BODY FLUIDS AND STOOLS ORDERABLES NO SPECIMEN TYPE/SOURCE Final Result Performing Organization Address City/State/[facility] Co de Phone Number [facility] [address] [place] [address] * Body fluid, cytospin, pathologist interpretation (06/20/2025 11:59 AM EDT) Specimen Type Body Fluid LAB HEMATOLOGY METHOD 06/21/2025 4:36 PM EDT [facility] Specimen Source, Body Fluid Peritoneal Fluid LAB HEMATOLOGY METHOD 06/21/2025 4:36 PM EDT [facility] Clinical Diagnosis, Body Fluid Ascites LAB HEMATOLOGY METHOD 06/21/2025 4:36 PM EDT [facility] Interpretation , Body Fluid No evidence of malignancy Chronic inflammatory cells Lymphocytosis Reactive mesothelial cells Moderate blood 06/21/2025 4:36 PM EDT [facility] Pathologist Signature, Body Fluid 06/21/2025 4:36 PM EDT [facility] Comment:Reviewed by: Kadie dobbs MD LAB CP ASR DISCLAIMER No 06/21/2025 4:36 PM EDT [facility] Body Fluid Peritoneal fluid / Unknown Non-blood Collection / Unknown 06/20/2025 11:59 AM EDT 06/20/2025 2:04 PM EDT us Preeti Andersen APRN LAB BODY FLUIDS AND STO OLS ORDERABLES Final Result Performing Organization Address City/State/[facility] Co de Phone Number [facility] [address] [place] [address] * Protein - Ascites (06/20/2025 11:59 AM EDT) Total Protein, Fluid 0.7 g/dL 06/20/2025 4:25 PM EDT [facility] Peritoneal Fluid Peritoneal cavity structure / Unknown Non-blood Collection / Unknown 06/20/2025 11:59 AM EDT 06/20/2025 2:42 PM EDT Narrative [facility] - 06/20/2025 4:25 PM EDT This test was developed and its performance characteristics determined by [facility]. The U.S. Food and Drug Administration has not approved or cleared this test. However, FDA clearance or approval is not currently required for clinical use. The results are not intended to be used as the sole means for clinical diagnosis or patient management decisions. Preeti Andersen QUALITY LAB TECHNICIAN LAB BODY FLUIDS AND STO OLS ORDERABLES Final Result Performing Organization Address [facility]/ZIP Co de Phone Number [facility] [address] [place] [address] * Albumin - Ascites (06/20/2025 11:59 AM EDT) Albumin, Peritoneal Fluid 0.4 g/dL 06/20/2025 4:25 PM EDT [facility] Peritoneal Fluid Peritoneal cavity structure / Unknown Non-blood Collection / Unknown 06/20/2025 11:59 AM EDT 06/20/2025 2:42 PM EDT Narrative [facility] - 06/20/2025 4:25 PM EDT REPORTING RESULTS Reference Values: No established reference interval. Results should be interpreted in comparison to the concentration in blood and in conjunction with the clinical context. This test was developed and its performance characteristics determined by [facility]. The U.S. Food and Drug Administration has not approved or cleared this test; however, FDA clearance or approval is not currently required for clinical use. The results are not intended to be used as the sole means for clinical diagnosis or patient management decisions. Preetilee Andersen QUALITY LAB TECHNICIAN LAB BODY FLUIDS AND STO OLS ORDERABLES Final Result [facility] [address] [place] [address] * Body Fluid Cell Count With Diff - Ascites (06/20/2025 11:59 AM EDT) Color, Body fluid [place] LAB HEMATOLOGY METHOD 06/20/2025 8:13 PM EDT [facility] Comment:Previously prelim ve rified as Red on 06/20/2025 at 1944 EDT. Appearance, Body fluid Clear LAB HEMATOLOGY METHOD 06/20/2025 8:13 PM EDT [facility] Comment:Previously prelim ve rified as Cloudy on 06/20/2025 at 1944 EDT. Volume, Body fluid 15.0 cc LAB HEMATOLOGY METHOD 06/20/2025 8:13 PM EDT [facility] Comment:Previously prelim ve rified as 5.8 cc on 06/20/2025 at 1944 EDT. Fluid Container Specimen received in miscellaneous container LAB HEMATOLOGY METHOD 06/20/2025 8:13 PM EDT [facility] Comment:Corrected result: Pr eviously reported as Tube 2 on 06/20/2025 at 1944 EDT. Red Blood Cell Count, Body fluid 13,000 uL LAB HEMATOLOGY METHOD 06/20/2025 8:13 PM EDT [facility] Total Nucleated Cell Count, Body fluid 164 uL LAB HEMATOLOGY METHOD 06/20/2025 8:13 PM EDT [facility] Neutrophils %, Body fluid 0 % LAB HEMATOLOGY METHOD 06/20/2025 8:13 PM EDT [facility] Lymphocytes %, Body fluid 91 % LAB HEMATOLOGY METHOD 06/20/2025 8:13 PM EDT [facility] Monocytes/Macr ophages %, Body fluid 9 % LAB HEMATOLOGY METHOD 06/20/2025 8:13 PM EDT [facility] Eosinophils %, Body fluid 0 % LAB HEMATOLOGY METHOD 06/20/2025 8:13 PM EDT [facility] Lining/Mesothe lial Cells %, Body fluid 0 % LAB HEMATOLOGY METHOD 06/20/2025 8:13 PM EDT [facility] Neutrophils Absolute (PMN), Body fluid 0 uL LAB HEMATOLOGY METHOD 06/20/2025 8:13 PM EDT [facility] Lymphocytes Absolute, Body fluid 149 uL LAB HEMATOLOGY METHOD 06/20/2025 8:13 PM EDT [facility] Monocytes/Macr ophages Absolute, Body fluid 15 uL LAB HEMATOLOGY METHOD 06/20/2025 8:13 PM EDT [facility] Eosinophils Absolute, Body fluid 0 uL LAB HEMATOLOGY METHOD 06/20/2025 8:13 PM EDT [facility] Basophils Absolute, Body fluid 0 uL LAB HEMATOLOGY METHOD 06/20/2025 8:13 PM EDT [facility] Lining/Mesothe lial Cells Absolute, Body fluid 0 uL LAB HEMATOLOGY METHOD 06/20/2025 8:13 PM EDT [facility] Basophils %, Body fluid 0 % LAB HEMATOLOGY METHOD 06/20/2025 8:13 PM EDT [facility] Body Fluid Peritoneal fluid / Unknown Non-blood Collection / Unknown 06/20/2025 11:59 AM EDT 06/20/2025 2:04 PM EDT Preeti Andersen APRN LAB BODY FLUIDS AND STOOLS ORDERABLES NO SPECIMEN TYPE/SOURCE Final Result [facility] [address] [place] [address] documented in this encounter Visit Diagnoses Diagnosis [...] documented as of this encounter Care Teams Food Service Order Clerk Relationship Specialty Start Date End Date Alvarez Zimmer MD [address] [place] [address] PCP - General Family Medicine 12/07/24 Lea Fernando [address] [place] [id number] Employee Relations Representative Endocrinology 08/29/24 Rachel Ray APRN [address] [facility] [address] [place] [address] Nurse Practitioner Gastroenterology 09/24/24 Tamera Isabel LPN VALUE-BASED TRANSFORMATION PROGRAM Licensed Practical Nurse 05/29/25 documented as of this encounter
--- OUTSIDE RECORDS SUMMARY | 2025-06-20 13:04 | XMS_ITS | Encounter Summary ---
Author Organization Healthcare Address [address] [place] [address] Care Team Providers Care Paper Mill Manager Name Role Phone Lea Fernando Unavailable [phone] Rachel Ray FLIGHT ENGINEER INSPECTOR Unavailable [phone] Alvarez Zimmer MD Primary Care Provider [phone] Tamera Isabel LPN Unavailable Unavailabl e Encounter Details Date Type Department Care Team (Latest Contact Info) Description 06/20/2025 1:04 PM EDT - 06/20/2025 11:59 PM EDT Hospital Encounter [facility] [address] [place] [address] Discharge Disposition: Home or Self Care Social [...] often do you attend chur ch or advent services? Patient unable to answer 01/10/2025 Do [...] in the past 12 m [facility], were you homeless or living in [...] How often do you attend chur or advent services? Never 05/29/2025 Do you belong to [...] in the past 12 m [facility], were you homeless or living in [...] drink first t kennedy in the morning (EYE-INCOME TAX INVESTIGATOR) to steady your nerves or to get [...] 1 03/01/2025 ergocalciferol (Vitamin D-2) 1.25 MG (78376 UT) capsuleIndications: Vitamin D deficiency Take 1 [...] Appointment [facility] Inter[facility] Radiology [address] [place] [address] 06/27/2025 10:30 AM EDT Appointment [facility] [address] [place] [address] 07/04/2025 10:30 AM EDT Appointment [facility] [address] [place] [address] 07/04/2025 11:30 AM EDT Appointment [facility] [address] [place] [address] 07/09/2025 2:40 PM EDT Office Visit [facility] [address] [facility] [place] [address] Ar Dominique MD [address] [facility] [address] [place] [address] 07/11/2025 10:30 AM EDT Appointment [facility] [address] [place] [address] 07/11/2025 11:30 AM EDT Appointment [facility] [address] [place] [address] 07/18/2025 10:30 AM EDT Appointment [facility] [address] [place] [address] 07/18/2025 11:30 AM EDT Appointment [facility] [address] [place] [address] 07/25/2025 10:30 AM EDT Appointment [facility] [address] [place] [address] 07/25/2025 11:30 AM EDT Appointment [facility] [address] [place], [place] [address] 07/31/2025 9:00 AM EDT Office Visit [facility] [address] [place] [address] Alvarez Zimmer MD [address] [place] [address] 08/20/2025 9:30 AM EDT Clinical Support [facility] [place] [address] [place] [address] 08/20/2025 10:30 AM EDT Social Work [facility] [place] [address] [place] [address] [place] [address] 08/20/2025 11:00 AM EDT Office Visit [facility] [place] [address] [place] [address] Jude Duque MD [address] [place] [address] 10/30/2025 1:20 PM EST Office Visit [facility] Endocrinology [address] [place] [address] TiffanieSharif S, DPM [address] [place] [address] documented as of this encounter Procedures Procedure Name Priority Date/Time Associated Diagnosis Comments XR CHEST 1 VIEW STAT 06/20/2025 1:38 PM EDT documented in this encounter Results [...] Bari Aguillon MD on 06/20/2025 2:13 PM Preeti Andersen APRN IMG XR PROCEDURES Final Result documented in this encounter [...] as of this encounter Care Teams Paper Mill Manager Relationship Specialty Start Date End Date Alvarez Zimmer MD [address] [place] [address] PCP - General Family Medicine 12/07/24 Lea Fernando [address] [facility] [address] [place] [address] Anesthesiology Tech Endocrinology 08/29/24 Rachel Ray APRN [address] [place] [address] Nurse Practitioner Gastroenterology 09/24/24 Tamera Isabel LPN VALUE-BASED TRANSFORMATION PROGRAM Licensed Practical Nurse 05/29/25 documented as of this encounter
--- OUTSIDE RECORDS SUMMARY | 2025-06-24 09:46 | XMS_ITS | Encounter Summary ---
Author Organization [facility] Address [address] [place] [address] Care Team Providers Care Document Manager Name Role Phone AyahTor Lea Clarke Unavailable [phone] Rachel Ray ENCAPSULATOR Unavailable [phone] Alvarez Zimmer MD Primary Care Provider [phone] Tamera Isabel PHOTOGRAPHY AND PRINTS CURATOR Unavailable Unavailabl e Reason for Visit * Reason Onset Date Comments Med Refill 05/21/2025 Encounter Details Date Type Department Care Team (Late st Contact Info) Description 05/21/2025 Refill [facility] [address] [place] [address] Alvarez Zimmer MD [address] [place] [address] Social History Tobacco Use Types [...] week 01/10/2025 How often do you attend [facility] or bahai services? Patient unable to answer [...] Recorded Patient Health Questionnaire-2 Score 1 05/07/2025 [facility] Occupat ional Health - [...] or slept in a snf (including now)? Yes 08/29/2024 PHQ-9 Answer Date [...] living in a snf (including now)? No 03/06/2025 CAGE ASSESSMENT Answer [...] drink first t kennedy in the morning (EYE-MARINE EQUIPMENT RESEARCH ENGINEER) to steady your nerves or [...] Upcoming Encounters Date Type Department Care Team ([facility] Contact Info) Description 06/27/2025 9:30 AM EDT Appointment [facility] Interventional Radiology [address] [place] [address] 06/27/2025 10:30 AM EDT Appointment [facility] Interventional Radiology [address] [place] [address] 07/04/2025 10:30 AM EDT Appointment [facility] Interventional Radiology [address] [place] [address] 07/04/2025 11:30 AM EDT Appointment [facility] Interventional Radiology [address] [place] [address] 07/09/2025 2:40 PM EDT Office Visit [facility] Bone & Mineral Metabolism [address], [address] [place] [address] Ar Dominique MD [address] [place] [address] 07/11/2025 10:30 AM EDT Appointment [facility] Interventional Radiology [address] [place] [address] 07/11/2025 11:30 AM EDT Appointment [facility] Inter[facility] Radiology [address] [place] [address] 07/18/2025 10:30 AM EDT Appointment [facility] Interventional Radiology [address] [place] [address] 07/18/2025 11:30 AM EDT Appointment [facility] Inter[facility] Radiology [address] [place] [address] 07/25/2025 10:30 AM EDT Appointment [facility] Interventional Radiology [address] [place] [address] 07/25/2025 11:30 AM EDT Appointment [facility] Interventional Radiology [address] [place] [address] 07/31/2025 9:00 AM EDT Office Visit [facility] [address] [place] [address] Alvarez Zimmer MD [address] [place] [address] 08/20/2025 9:30 AM EDT Clinical Support [facility] [address] [place] [address] 08/20/2025 10:30 AM EDT Social Work [facility] [place] [address] [place] [address] [place] [address] 08/20/2025 11:00 AM EDT Office Visit [facility] [address] [place] [address] Jude Duque MD [address] [place] [address] 10/30/2025 1:20 PM EST Office Visit [facility] Endocrinology [address] [place] [address] Sharif Moreno, DPM [address] [facility] [address] [place] [address] documented as of this encounter [...] documented as of this encounter Care Teams Document Manager Relationship Specialty Start Date End Date [place] [address] PCP - General Family Medicine 12/07/24 Lea Fernando [address] [facility] [address] [place] [address] Quality Reviewer Endocrinology 08/29/24 Rachel Ray APRN [address] [facility] [address] [place] [address] Nurse Practitioner Gastroenterology 09/24/24 Tamera Isabel LPN VALUE-BASED TRANSFORMATION PROGRAM Licensed Practical Nurse 05/29/25 documented as of this encounter
--- OUTSIDE RECORDS SUMMARY | 2025-06-24 09:46 | XMS_ITS | Encounter Summary ---
Author Organization [facility] Address [address] [place] [address] Care Team Providers Care Scales Inspector Name Role Phone Lea Fernando Unavailable [phone] Rachel Ray SENIOR BIOINFORMATICS SCIENTIST Unavailable [phone] Alvarez Zimemr MD Primary Care Provider [phone] Tamera Isabel LPN Unavailable Unavailabl e Encounter Details Date Type Department Care Team (Late st Contact Info) Description 05/16/2025 Telephone [employer] [facility] Endocrinology [address] [place] [address] [place] [address] Social History Tobacco Use Types Packs/Day Years [...] How often do you attend chur or samaritan services? Patient unable to answer 01/10/2025 Do you belong to any clubs o r organizations such as advent groups, unions, fraternal or athletic groups, or [...] How often do you attend chur or samaritan services? Never 05/29/2025 Do you belong to any clubs o r organizations such as advent groups, unions, fraternal or athletic groups, or [...] more drinks on one occasion? Never 06/05/2025 [facility] Occupational Stress Questionnaire Answer [...] drink first t kennedy in the morning (EYE-CHEESE COOKER) to steady your nerves or to get [...] P[facility] A Interventional Radiology [address] [place] [address] 06/27/2025 10:30 AM EDT Appointment [facility] Inter[facility] Radiology [address] [place] [address] 07/04/2025 10:30 AM EDT Appointment [facility] Inter[facility] Radiology [address] [place] [address] 07/04/2025 11:30 AM EDT Appointment [facility] Inter[facility] Radiology [address] [place] [address] 07/09/2025 2:40 PM EDT Office Visit [facility] Bone & Mineral Metabolism [address] [facility], [address] [place] [address] Ar Dominique MD [address] [place] [address] 07/11/2025 10:30 AM EDT Appointment [facility] Inter[facility] Radiology [address] [place] [address] 07/11/2025 11:30 AM EDT Appointment [facility] Radiology [address] [place] [address] 07/18/2025 10:30 AM EDT Appointment [facility] [address] [place] [address] 07/18/2025 11:30 AM EDT Appointment [facility] [address] [place] [address] 07/25/2025 10:30 AM EDT Appointment [facility] Radiology [address] [place] [address] 07/25/2025 11:30 AM EDT Appointment [facility] Inter[facility] Radiology [address] [place] [address] 07/31/2025 9:00 AM EDT [facility] [address] [place] [address] Alvarez Zimmer MD [address] [place] [address] 08/20/2025 9:30 AM EDT Clinical Support [facility] [place] [address] [facility] [address] [place] [phone] 08/20/2025 10:30 AM EDT Social Work [facility] [place] [address] [facility] [address] [place] [phone] Deysi Ortega [place], [place] [phone] 08/20/2025 11:00 AM EDT Office Visit [facility] [address] [place] [address] Jude Duque MD [address] [place] [address] 10/30/2025 1:20 PM EST Office Visit [facility] Endocrinology [address] [place] [address] Sharif Moerno DPM [address] [place] [address] documented as of this encounter [...] documented as of this encounter Care Teams Scales Inspector Relationship Specialty Start Date End Date Alvarez Zimmer MD [address] [place] [address] PCP - General Family Medicine 12/07/24 Lea Fernando [address] [place] [address] Ice Crusher Endocrinology 08/29/24 Rachel Ray, SENIOR BIOINFORMATICS SCIENTIST [address] [place] [address] Nurse Practitioner Gastroenterology 09/24/24 Tamera Isabel, MG VALUE-BASED TRANSFORMATION PROGRAM Licensed Practical Nurse 05/29/25 documented as of this encounter
--- OUTSIDE RECORDS SUMMARY | 2025-06-24 09:46 | XMS_ITS | Encounter Summary ---
Author Organization [facility] Address [address] [place] [address] Care Team Providers Care Supervisor Production Name Role Phone Lea Fernando Unavailable [phone] Rachel Ray ONLINE CONTENT DEVELOPER Unavailable [phone] Alvarez Zimmer MD Primary Care Provider [phone] Tamera Isabel LPN Unavailable Unavailabl e Encounter Details Date Type Department Care Team (Late st Contact Info) Description 05/16/2025 Telephone [facility] Endocrinology [address] [place] [address] [place] [address] Social History Tobacco Use Types Packs/Day Years [...] any clubs o r organizations such as anabaptism groups, unions, fraternal or athletic groups, or [...] any clubs o r organizations such as anabaptism groups, unions, fraternal or athletic groups, or [...] more drinks on one occasion? Never 06/05/2025 [facility] - Occupational Stress Questionnaire Answer [...] drink first t kennedy in the morning (EYE-NIGHT CLUB MANAGER) to steady your nerves or to [...] Appointment [facility] Interventional Radiology [address] [place] [address] 06/27/2025 10:30 AM EDT Appointment [facility] Inter[facility] Radiology [address] [place] [address] 07/04/2025 10:30 AM EDT Appointment [facility] Inter[facility] Radiology [address] [place] [address] 07/04/2025 11:30 AM EDT Appointment [facility] Interventional Radiology [address] [place] [address] 07/09/2025 2:40 PM EDT Office Visit [facility] Bone & Mineral Metabolism [address] [facility], [address] [place] [address] Ar Dominique MD [address] [place] [phone] 07/11/2025 10:30 AM EDT Appointment [facility] Inter[facility] Radiology [address] [place] [address] 07/11/2025 11:30 AM EDT Appointment [facility] [address] [place] [address] 07/18/2025 10:30 AM EDT Appointment [facility] [address] [place] [address] 07/18/2025 11:30 AM EDT Appointment [facility] [address] [place] [address] 07/25/2025 10:30 AM EDT Appointment [facility] [address] [place] [address] 07/25/2025 11:30 AM EDT Appointment [facility] Inter[facility] Radiology [address] [place] [address] 07/31/2025 9:00 AM EDT Office Visit [facility] [address] [place] [address] Alvarez Zimmer MD [address] [place] [address] 08/20/2025 9:30 AM EDT Clinical Support [facility] [place] [address] [facility] [address] [place] [phone] 08/20/2025 10:30 AM EDT Social Work [facility] [place] [address] [facility] [address] [place] [phone] Deysi Ortega [place], [place] [phone] 08/20/2025 11:00 AM EDT Office Visit [facility] [address] [place] [address] Jude Duque MD [address] [place] [address] 10/30/2025 1:20 PM EST Office Visit [facility] Endocrinology [address] [place] [address] Sharif Moreno DPM [address] [place] [address] documented as of this encounter [...] documented as of this encounter Care Teams Supervisor Production Relationship Specialty Start Date End Date Alvarez Zimmer MD [address] [place] [address] PCP - General Family Medicine 12/07/24 Lea Fernando [address] [place] [address] Recruiting Operations Consultant Endocrinology 08/29/24 Rachel Ray, ONLINE CONTENT DEVELOPER [address] [place] [address] Nurse Practitioner Gastroenterology 09/24/24 Tamera Isabel, MG VALUE-BASED TRANSFORMATION PROGRAM Licensed Practical Nurse 05/29/25 documented as of this encounter
--- OUTSIDE RECORDS SUMMARY | 2025-06-24 09:46 | XMS_ITS | Encounter Summary ---
Author Organization [facility] Address [address] [place] [address] Care Team Providers Care Barrel Rifler Operator Name Role Phone Lea Fernando Unavailable [phone] Rachel Ray FUNERAL ARRANGEMENT DIRECTOR Unavailable [phone] Alvarez Zimmer MD Primary Care Provider [phone] Tamera Isabel LPN Unavailable Unavailabl e Reason for Visit * Reason Onset Date Comments Med Refill 05/21/2025 Encounter Details Date Type Department Care Team (Late st Contact Info) Description 05/21/2025 [facility]ill [facility] [address], [address] [place] [address] Ar Dominique MD [address] [place] [address] Chronic kidney disease, stage 3b [...] 01/10/2025 How often do you attend [facility] or judaism services? Patient unable to answer 01/10/2025 Do you belong to any clubs o r organizations such as gnosticist groups, unions, [employer] or athletic groups, or school groups? Patient [...] Recorded Patient Health Questionnaire-2 Score 1 05/07/2025 [facility] [place] of Occupat ional Health - Occupational Stress [...] any time in the past 12 m [facility], were you homeless or [...] t kennedy in the morning (EYE-DIRECTOR OF TECHNOLOGY) to steady your nerves or to get [...] Appointment [facility] [address] [place] [address] 06/27/2025 10:30 AM EDT Appointment [facility] [address] [place] [address] 07/04/2025 10:30 AM EDT Appointment [facility] [address] [place] [address] 07/04/2025 11:30 AM EDT Appointment [facility] [address] [place] [address] 07/09/2025 2:40 PM EDT Office Visit [facility] [address], [address] [place] [address] Ar Dominique MD [address] [facility] [address] [facility] [address] [place] [address] 07/11/2025 10:30 AM EDT Appointment [facility] [address] [place] [address] 07/11/2025 11:30 AM EDT Appointment [facility] [address] [place] [address] 07/18/2025 10:30 AM EDT Appointment [facility] [address] [place] [address] 07/18/2025 11:30 AM EDT Appointment [facility] [address] [place] [address] 07/25/2025 10:30 AM EDT Appointment [facility] [address] [place] [address] 07/25/2025 11:30 AM EDT Appointment [facility] [address] [place] [address] 07/31/2025 9:00 AM EDT Office Visit [address] [address] Alvarez Zimmer MD [address] [place] [address] 08/20/2025 9:30 AM EDT Clinical Support [facility] [address] [address] 08/20/2025 10:30 AM EDT Social Work [facility] [address] [place] [address] Deysi Ortega [place], [place] [id number] 08/20/2025 11:00 AM EDT Office Visit [facility] [address] [place] [address] Jude Duque MD [address] [place] [address] 10/30/2025 1:20 PM EST Office Visit [facility] [address] [place] [address] Sharif Moreno DPM [address] [place] [address] documented as of this encounter [...] documented as of this encounter Care Teams Barrel Rifler Operator Relationship Specialty Start Date End Date Alvarez Zimmer MD [address] [place] [address] PCP - General Family Medicine 12/07/24 Lea Fernando [address] [place] [address] Senior Mobile Web Developer Endocrinology 08/29/24 Rachel Ray APRN [address] [place] [address] Nurse Practitioner Gastroenterology 09/24/24 Tamera Isabel LPN VALUE-BASED TRANSFORMATION PROGRAM Licensed Practical Nurse 05/29/25 documented as of this encounter
--- OUTSIDE RECORDS SUMMARY | 2025-06-24 09:46 | XMS_ITS | Encounter Summary ---
Author Organization [facility] Address [address] [place] [address] Care Team Providers Care Slip Feeder Name Role Phone Lea Fernando Unavailable [phone] Rachel Ray 2 YEAR [employer] PRESCHO[employer] TEACHER Unavailable [phone] Alvarez Zimmer MD Primary Care Provider [phone] Encounter Details Date Type Department Care Team [...] often do you attend chur ch or scientology services? Patient unable to answer 01/10/2025 Do [...] Recorded Patient Health Questionnaire-2 Score 1 05/07/2025 [facility] of Occupat ional Health - [...] or slept in a fci (including now)? Yes 08/29/2024 PHQ-9 Answer Date [...] any time in the past 12 m [facility], were you homeless or living in a fci (including now)? No 03/06/2025 CAGE ASSESSMENT Answer [...] t kennedy in the morning (EYE-DIRECTOR OF PRODUCT MANAGEMENT) to steady your nerves or to get [...] Upcoming Encounters Date Type Department Care Team ([facility] st Contact Info) Description 06/27/2025 9:30 AM EDT Appointment [facility] [address] [place] [address] 06/27/2025 10:30 AM EDT Appointment [facility] [address] [place] [address] 07/04/2025 10:30 AM EDT Appointment [facility] [address] [place] [address] 07/04/2025 11:30 AM EDT Appointment [facility] [address] [place] [address] 07/09/2025 2:40 PM EDT Office Visit [facility] [place] [facility] [address], [address] [place] [address] Ar Dominique MD [address] [facility] [address] [place] [address] 07/11/2025 10:30 AM EDT Appointment [facility] [address] [place] [address] 07/11/2025 11:30 AM EDT Appointment [facility] [address] [place] [address] 07/18/2025 10:30 AM EDT Appointment [facility] [address] [place] [address] 07/18/2025 11:30 AM EDT Appointment [facility] [address] [place] [address] 07/25/2025 10:30 AM EDT Appointment [facility] [address] [place] [address] 07/25/2025 11:30 AM EDT Appointment [facility] [address] [place] [address] 07/31/2025 9:00 AM EDT Office Visit [facility] [address] [place] [address] Alvarez Zimmer MD [address] [place] [address] 08/20/2025 9:30 AM EDT Clinical Support [facility] [place] [address] [place] [address] 08/20/2025 10:30 AM EDT Social Work [facility] [place] [address] [place] [address] Deysi Ortega [place], [place] [id number] 08/20/2025 11:00 AM EDT Office Visit [facility] [place] [address] [place] [address] Jude Duque MD [address] [place] [address] 10/30/2025 1:20 PM EST Office [facility] [address] [place] [address] Sharif Moreno, DPNicole [address] [place] [address] documented as of this encounter [...] documented as of this encounter Care Teams Slip Feeder Relationship Specialty Start Date End Date Alvarez Zimmer MD [address] [place] [address] PCP - General Family Medicine 12/07/24 Lea Fernando [address] [place] [address] Nurse Clinical Endocrinology 08/29/24 Rachel Ray, 2 YEAR [employer] PRES[employer] TEACHER [address] [place] [address] Nurse Practitioner Gastroenterology 09/24/24 documented as of this encounter
--- OUTSIDE RECORDS SUMMARY | 2025-06-24 09:46 | XMS_ITS | Encounter Summary ---
Author Organization [facility] Address [address] [place] [address] Care Team Providers Care Reprint Sorter Name Role Phone Lea Fernando Unavailable [phone] Rachel Ray SALES EXPERT HOME THEATER Unavailable [phone] Alvarez Zimmer MD Primary Care Provider [phone] Reason for Visit * Reason Comments Med Refill Encounter Details Date Type Department Care Team (Late st Contact Info) Description 05/14/2025 Refill [facility] [address] [place] [address] Kacie Buckley, SALES EXPERT HOME THEATER [address] [place] [address] Hypomagnesemia Social History Tobacco Use [...] week 01/10/2025 How often do you attend [facility] or caodaism services? Patient unable to answer 01/10/2025 Do you belong to any clubs o r organizations such as pentecostalism groups, unions, fraternal or athletic groups, or [...] Recorded Patient Health Questionnaire-2 Score 1 05/07/2025 [facility] of Occupat ional [...] time in the past 12 m [facility], were you homeless or living in a [...] drink first t kennedy in the morning (EYE-APPAREL STOCK CHECKER) to steady your nerves or to get [...] Upcoming Encounters Date Type Department Care Team ([facility] Contact Info) Description 06/27/2025 9:30 AM EDT Appointment [facility] [address] [place] [address] 06/27/2025 10:30 AM EDT Appointment [facility] [address] [place] [address] 07/04/2025 10:30 AM EDT Appointment [facility] [address] [place] [address] 07/04/2025 11:30 AM EDT Appointment [facility] [address] [place] [address] 07/09/2025 2:40 PM EDT Office Visit [facility] [address] [facility] [address], [address] [place] [address] Ar Dominique MD [address] [facility] [address] [place] [address] 07/11/2025 10:30 AM EDT Appointment [facility] [address] [place] [address] 07/11/2025 11:30 AM EDT Appointment [facility] [address] [place] [address] 07/18/2025 10:30 AM EDT Appointment [facility] [address] [place] [address] 07/18/2025 11:30 AM EDT Appointment [facility] [address] [place] [address] 07/25/2025 10:30 AM EDT Appointment [facility] [address] [place] [address] 07/25/2025 11:30 AM EDT Appointment [facility] [address] [place] [address] 07/31/2025 9:00 AM EDT Office Visit [facility] [address] [place] [address] Alvarez Zimmer MD [address] [place] [address] 08/20/2025 9:30 AM EDT Clinical Support [facility] [place] [address] [place] [address] 08/20/2025 10:30 AM EDT Social Work [facility] [address] [place] [address] Deysi Ortega [place], [place] [id number] 08/20/2025 11:00 AM EDT Office Visit [facility] [place] [address] [place] [address] Jude Duque MD [address] [place] [address] 10/30/2025 1:20 PM EST Office [facility] Endocrinology [address] [place] [address] Sharif Moreno, DPNicole [address] [place] [address] documented as of this encounter [...] documented as of this encounter Care Teams Reprint Sorter Relationship Specialty Start Date End Date Alvarez Zimmer MD [address] [place] [address] PCP - General Family Medicine 12/07/24 Lea Fernando [address] [place] [address] Pepper Picker Endocrinology 08/29/24 Rachel Ray APRN [address] [place] [address] Nurse Practitioner Gastroenterology 09/24/24 documented as of this encounter
--- OUTSIDE RECORDS SUMMARY | 2025-06-24 09:46 | XMS_ITS | Encounter Summary ---
Author Organization [facility] Address [address] [place] [address] Care Team Providers Care It Administrator Name Role Phone Lea Fernando Unavailable [phone] Rachel Ray HOME SCHOOL LIAISON OFFICER Unavailable [phone] Alvarez Zimmer MD Primary Care Provider Encounter [...] often do you attend chur ch or christianity services? Patient unable to answer 01/10/2025 Do [...] Recorded Patient Health Questionnaire-2 Score 1 05/07/2025 [facility] of Occupat ional Health [...] any time in the past 12 m [facility], were you homeless or living in [...] drink first t kennedy in the morning (EYE-VB NET PROGRAMMER) to steady your nerves or to get [...] Upcoming Encounters Date Type Department Care Team ([facility] st Contact Info) Description 06/27/2025 9:30 AM EDT Appointment [facility]iology [address] [place] [address] 06/27/2025 10:30 AM EDT Appointment [facility] [address] [place] [address] 07/04/2025 10:30 AM EDT Appointment [facility] [address] [place] [address] 07/04/2025 11:30 AM EDT Appointment [facility] [address] [place] [address] 07/09/2025 2:40 PM EDT Office Visit [facility] [place] [facility] [address] [facility], [address] [place] [address] Ar Dominique MD [address] [facility] [facility] [address] [place] [address] 07/11/2025 10:30 AM EDT Appointment [facility] [address] [place] [address] 07/11/2025 11:30 AM EDT Appointment [facility] [address] [place] [address] 07/18/2025 10:30 AM EDT Appointment [facility] [address] [place] [address] 07/18/2025 11:30 AM EDT Appointment [facility] [address] [place] [address] 07/25/2025 10:30 AM EDT Appointment [facility] [address] [place] [address] 07/25/2025 11:30 AM EDT Appointment [facility] [address] [place] [address] 07/31/2025 9:00 AM EDT Office Visit [facility] [address] [place] [address] Alvarez Zimmer MD [address] [place] [address] 08/20/2025 9:30 AM EDT Clinical Support [facility] [place] [address] [place] [address] 08/20/2025 10:30 AM EDT Social Work [facility] [place] [address] [place] [address] Deysi Ortega [place], [place] [address] 08/20/2025 11:00 AM EDT Office Visit [facility] [place] [address] [place] [address] Jude Duque MD [address] [place] [address] 10/30/2025 1:20 PM EST Office Visit [facility] Endocrinology [address] [place] [address] Sharif Moreno, DPNicole [address] [place] [address] documented as of this encounter [...] documented as of this encounter Care Teams It Administrator Relationship Specialty Start Date End Date Alvarez Zimmer MD [address] [place] [address] PCP - General Family Medicine 12/07/24 Lea Fernando [address] [place] [address] Scoop Machine Operator Endocrinology 08/29/24 Rachel Ray, HOME SCHOOL LIAISON OFFICER [address] [place] [address] Nurse Practitioner Gastroenterology 09/24/24 documented as of this encounter
--- OUTSIDE RECORDS SUMMARY | 2025-06-24 09:47 | XMS_ITS | Encounter Summary ---
Author Organization [facility] Address [address] [place] [address] Care Team Providers Care Electronic Organ Mechanic Name Role Phone Lea Fernando Unavailable [phone] Rachel Ray ENTRANCE GUARD Unavailable [phone] Alvarez Zimmer MD Primary Care Provider [phone] Tamera Isabel UTILITY AGENT Unavailable Unavailabl e Encounter Details Date Type Department Care Team (Late st Contact Info) Description 06/20/2025 Telephone [facility] Medicine [address] [place] [address] Alvarez Zimmer MD [address] [place] [address] Social History Tobacco Use Types [...] week 01/10/2025 How often do you attend [facility] or gnosticism services? Patient unable to answer 01/10/2025 Do you belong to any clubs o r organizations such as religious groups, unions, fraternal or athletic groups, or [...] any time in the past 12 m [facility], were you homeless or living in [...] How often do you attend chur or gnosticism services? Never 05/29/2025 Do you belong to any clubs o r organizations such as religious groups, unions, fraternal or athletic groups, or [...] more drinks on one occasion? Never 06/05/2025 [facility] - Occupational Stress Questionnaire [...] any time in the past 12 m [facility], were you homeless or living in [...] drink first t kennedy in the morning (EYE-ROOMING HOUSE KEEPER) to steady your nerves or to get [...] plus. I did search an there is [facility] so I have faxed [...] go to a facility. Best contact number: [phone] (mobile) Optimal time of day to reach caller: ANYTIME Additional comments/information from caller: None Note: Please do not reply to this message. Follow-up communication and further actions as a result of this message need to be communicated with the patient directly, if the patient is not active onMyChart. If the patient is active on MyChart, they will receive notification of the communication/outcome via H[employer]. documented in this encounter Plan of Treatment Upcoming Encounters Date Type Department Care Team (Late st Contact Info) Description 06/27/2025 9:30 AM EDT Appointment [facility] [address] [place] [address] 06/27/2025 10:30 AM EDT Appointment [facility] [address] [place] [address] 07/04/2025 10:30 AM EDT Appointment [facility] [address] [place] [address] 07/04/2025 11:30 AM EDT Appointment [facility] [address] [place] [address] 07/09/2025 2:40 PM EDT Office Visit [facility] [address] [facility], [address] [place] [address] Ar Dominique MD [address] [place] [address] 07/11/2025 10:30 AM EDT Appointment [facility] [address] [place] [address] 07/11/2025 11:30 AM EDT Appointment [facility] [address] [place] [address] 07/18/2025 10:30 AM EDT Appointment [facility] [address] [place] [address] 07/18/2025 11:30 AM EDT Appointment [facility] [address] [place] [address] 07/25/2025 10:30 AM EDT Appointment [facility] [address] [place] [address] 07/25/2025 11:30 AM EDT Appointment [facility] [address] [place] [address] 07/31/2025 9:00 AM EDT Office Visit [address] [address] Alvarez Zimmer MD [address] [place] [address] 08/20/2025 9:30 AM EDT Clinical Support [facility] [place] [address] [place] [address] 08/20/2025 10:30 AM EDT Social Work [facility] [place] [address] [place] [address] [place] [address] 08/20/2025 11:00 AM EDT Office Visit [facility] [place] [address] [place] [address] Jude Duque MD [address] [place] [address] 10/30/2025 1:20 PM EST Office Visit [facility] Endocrinology [address] [place] [address] Sharif Moreno, DPM [address] [place] [address] documented as of this encounter [...] documented as of this encounter Care Teams Electronic Organ Mechanic Relationship Specialty Start Date End Date Alvarez Zimmer MD [address] [place] [address] PCP - General Family Medicine 12/07/24 Lea Fernando [address] [place] [address] Industrial Gas Fitter Helper Endocrinology 08/29/24 Rachel Ray APRN [address] [place] [address] Nurse Practitioner Gastroenterology 09/24/24 Tamera Isabel LPN VALUE-BASED TRANSFORMATION PROGRAM Licensed Practical Nurse 05/29/25 documented as of this encounter
--- OUTSIDE RECORDS SUMMARY | 2025-06-24 09:47 | XMS_ITS | Encounter Summary ---
Author Organization [employer] ([place], [place], [place], [place]) Address [address] [place] [address] Care Team Providers Care Milk Receiver Tank Truck Name Role Phone Trupti Taina Burt APRN Primary Care Provider [phone] Reason for Referral * Diagnostic X-Ray (Routine) - Closed Specialty Diagnoses / Procedures Referred By Contac t Referred To Contact Diagnoses Pre-op testing Urge incontinence Encopresis without constipation and overflow incontinence Procedures X-ray abdomen KUB 1 view Rory Villarreal MD [address] [place] [address] Phone: tel: fax: Referral ID Status Reason Start Date Expiration Date Visits Re quested Visits Authorized [id number] Closed 06/15/2023 12/12/2023 1 1 * Diagnostic X-Ray (Routine) - Closed Specialty Diagnoses / Procedures Referred By Contac t Referred To Contact Diagnoses Pre-op testing Urge incontinence Encopresis without constipation and overflow incontinence Procedures X-ray chest [place] [address] [place] [address]. [address] [place] [address] Phone: tel: fax: Referral ID Status Reason Start Date Expiration Date Visits Re quested Visits Authorized [id number] Closed 06/15/2023 12/12/2023 1 1 Encounter Details Date Type Department Care Team (Late st Contact Info) Description 06/15/2023 Outside Orders [facility] [address] [place] [address] Rory Villarreal MD [address] [facility] [place] [address] Pre-op testing (Primary Dx); Urge [...] Date Beau rded Speak language other than Equatorial Guinean at home Not on file 12/01/2023 Want [...] ATRIAL RATE (MCT) 84 BPM GE MUSE DE Interval 128 ms GE MUSE QRS-INTERVAL (MSEC) 88 ms GE MUSE QT Interval 372 ms GE MUSE QTC Interval 439 ms GE MUSE P [place] 49 degrees GE MUSE R AXIS (MCT) -34 degrees GE MUSE T Wave [place] 39 degrees GE MUSE [place] Diagnosis Normal sinus rhythm Left axis deviation Abnormal ECG No previous ECGs available Confirmed by Viktor Silver George ([id number]) on 06/21/2023 8:37:51 AM GE MUSE 06/15/2023 1:16 PM EDT 06/21/2023 8:37 AM EDT Rory Villarreal MD ECG ORDERABLES Final Result GE MUSE * (ABNORMAL) Urine Culture (06/15/2023 1:06 PM EDT) Result 10-100,000 CFU Escherichia coli(A) 06/17/2023 8:01 AM EDT [facility] Urine URINE SPECIMEN COLLECTION, CLEAN [...] MICROBIOLOGY - GENERAL ORDERABLE S Final Result [facility] [address] [phone] * (ABNORMAL) Comprehensive metabolic panel (06/15/2023 1:06 PM EDT) Sodium 133(L) 136 - 145 meq/L 06/15/2023 2:57 PM EDT [facility] Potassium 4.4 3.5 - 5.1 meq/L 06/15/2023 2:57 PM EDT [facility] Chloride 96(L) 98 - 107 meq/L 06/15/2023 2:57 PM EDT [facility] CO2 32 21 - 32 meq/L 06/15/2023 2:57 PM EDT [facility] Calcium 9.9 8.5 - 10.1 mg/dL 06/15/2023 2:57 PM EDT [facility] Glucose 426(H) 74 - 99 mg/dL 06/15/2023 2:57 PM EDT [facility] BUN 17 7 - 18 mg/dL 06/15/2023 2:57 PM EDT [facility] Creatinine 1.09(H) 0.55 - 1.02 mg/dL 06/15/2023 2:57 PM EDT [facility] Albumin 2.6(L) 3.4 - 5.0 g/dL 06/15/2023 2:57 PM EDT [facility] Alkaline Phosphatase 191(H) 50 - 136 U/L 06/15/2023 2:57 PM EDT [facility] ALT 20 12 - 78 U/L 06/15/2023 2:57 PM EDT [facility] AST 52(H) 15 - 37 U/L 06/15/2023 2:57 PM EDT [facility] Total Bilirubin 2.5(H) 0.2 - 1.0 mg/dL 06/15/2023 2:57 PM EDT [facility] Protein, Total 7.7 6.4 - 8.2 gm/dL 06/15/2023 2:57 PM EDT [facility] Anion Gap 9 06/15/2023 2:57 PM EDT [facility] Globulin 5.1(H) 0.4 - 4.9 g/dL 06/15/2023 2:57 PM EDT [facility] Osmolality Calc 286.1 2:57 PM T [facility] eGFR (mL/min/1.73m2) 58(L) >=60 mL/min/1.7 3m2 06/15/2023 2:57 PM T [facility] Comment:ESTIMATED GFR IS NOT ACCURATE CREATININE CLEARANCE IN PREDICTING GLOMERULAR FILTRATION RATE. ESTIMATED GFR IS NOT APPLICABLE FOR DIALYSIS PATIENTS. Blood Venipuncture / Unknown 06/15/2023 1:06 PM EDT 06/15/2023 1:06 PM EDT us Rory Yalkut MD LAB BLOOD ORDERABLES Final Resul t [facility] [address] [place] [address], [facility] [phone] * (ABNORMAL) CBC with automated diff (06/15/2023 1:06 PM EDT) WBC 4.3 4.0 - 10.0 K/ L 06/15/2023 2:11 PM EDT [facility] RBC 3.82(L) 3.93 - 5.22 M/ L 06/15/2023 2:11 PM EDT [facility] Hemoglobin 11.9 11.2 - 15.7 GM/DL 06/15/2023 2:11 PM EDT [facility] Hematocrit 36.6 34.1 - 44.9 % 06/15/2023 2:11 PM EDT [facility] MCV 96(H) 79 - 95 fL 06/15/2023 2:11 PM EDT [facility] MCH 31.2 25.6 - 32.2 pg 06/15/2023 2:11 PM EDT [facility] MCHC 32.5 32.3 - 36.5 GM/DL 06/15/2023 2:11 PM EDT [facility] RDW 15.1(H) 11.5 - 14.5 % 06/15/2023 2:11 PM EDT [facility] Platelets 72(L) 182 - 369 K/CU MM 06/15/2023 2:11 PM EDT [facility] MPV 10.8 9.4 - 12.4 fL 06/15/2023 2:11 PM EDT [facility] Nucleated Red Blood Cell 0.0 0 - 0.2 % 06/15/2023 2:11 PM EDT [facility] % Neutros 61 42 - 75 % 06/15/2023 2:11 PM EDT [facility] % Lymphs 26 19 - 52 % 06/15/2023 2:11 PM EDT [facility] % Monos 9 5 - 13 % 06/15/2023 2:11 PM EDT [facility] % Eos 3 1 - 7 % 06/15/2023 2:11 PM EDT [facility] % Baso 1 0 - 2 % 06/15/2023 2:11 PM EDT [facility] NRBC Absolute 0.00 0 - 0.12 K/ul 06/15/2023 2:11 PM EDT [facility] # Neutros 2.62 1.56 - 6.13 K/ L 06/15/2023 2:11 PM EDT [facility] # Lymphs 1.14(L) 1.48 - 4.50 K/ L 06/15/2023 2:11 PM EDT [facility] # Monos 0.40 0.24 - 0.82 K/ L 06/15/2023 2:11 PM EDT [facility] # Eos 0.13 0.00 - 6.00 K/ L 06/15/2023 2:11 PM EDT [facility] # Baso 0.03 0.01 - 0.08 K/ L 06/15/2023 2:11 PM EDT [facility] Immature Granulocytes-Re lative 0.20(H) 0.00 - 0.00 % 06/15/2023 2:11 PM EDT [facility] # IG 0.01 0.00 - 0.50 K/uL 06/15/2023 2:11 PM EDT [facility] Blood Venipuncture / Unknown 06/15/2023 1:06 PM EDT 06/15/2023 1:06 PM EDT Narrative [facility] - 06/15/2023 2:11 PM EDT [...] MD LAB BLOOD ORDERABLES Final Resul t [facility] [address] [place] [address], [facility] [phone] documented in this encounter Visit Diagnoses Diagnosis Pre-op testing- Primary Unspecified pre-operative examination Urge incontinence Encopresis without constipation and overflow incontinence Incontinence of feces Pre-op testing Unspecified pre-operative examination Urge incontinence Encopresis without constipation and overflow incontinence Incontinence of feces Pre-op testing Unspecified pre-operative examination Urge incontinence Encopresis without constipation and overflow incontinence Incontinence of feces documented in this encounter Care Teams Milk Receiver Tank Truck Relationship Specialty Start Date End Date Taina Lyles, CLOTH WASHER OPERATOR [address] [place] [address] PCP - General Nurse Practitioner 06/15/23 documented as of this encounter
--- OUTSIDE RECORDS SUMMARY | 2025-06-24 09:47 | XMS_ITS ---
Author Organization [facility] Address [address] [place] [address] Care Team Providers Care Color Receiver Name Role Phone Lea Fernando Unavailable [phone] Rachel Ray APRN Unavailable [phone] Alvarez Zimmer MD Primary Care Provider [phone] Tamera Isabel LPN Unavailable Unavailabl e Transplant Episode Liver Candidate [facility] ([place], [place]) - [facility] waitlisted on 02/19/2025 Marked as Inactive on 05/08/2025 Reason: Candidate Workup Incomplete Liver CoordinatorWilma Arana RN Fax: N/A Email: N/A Scores Score Value Updated Expires Exceptions/Jeanine sons CPRA Not available MELD (Calc) 23 06/11/2025 Nikolai Organ Diagnosis Organ Primary 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
--- OUTSIDE RECORDS SUMMARY | 2025-06-24 09:47 | XMS_ITS | Encounter Summary ---
Author Organization [facility] Address [address] [place] [address] Care Team Providers Care Broomcorn Sorter Name Role Phone Wilma Howard Ambar RUSH Primary Care Provider [phone] Lea Fernando Unavailable [phone] Rachel Ray CHIEF OPERATING ENGINEER Unavailable [phone] Taina Lyles CHIEF OPERATING ENGINEER Primary Care Provider Monique Tapia ELECTRONIC SEMICONDUCTOR PROCESSOR Unavailable Unavailable Alvarez Zimmer MD Primary Care Provider [phone] Shaniqua Trevino ELECTRONIC SEMICONDUCTOR PROCESSOR Unavailable Unavailable Tamera Isabel ELECTRONIC SEMICONDUCTOR PROCESSOR Unavailable Unavailabl e Reason for Visit * Reason Comments Med Refill Encounter Details Date Type Department Care Team (Late st Contact Info) Description [facility]/28[facility]2021 [facility] [address] [place] [address] Deysi Antonio MD [address] [facility] [address] [place] [address] Social History Tobacco Use Types [...] Upcoming Encounters Date Type Department Care Team ([facility] st Contact Info) Description 06/27/2025 9:30 AM EDT Appointment [facility] [address] [place] [address] 06/27/2025 10:30 AM EDT Appointment [facility] [address] [place] [address] 07/04/2025 10:30 AM EDT Appointment [facility] [address] [place] [address] 07/04/2025 11:30 AM EDT Appointment [facility] [address] [place] [address] 07/09/2025 2:40 PM EDT Office Visit [facility] [address] [facility], [address] [place] [address] Ar Dominique MD [address] [place] [address] 07/11/2025 10:30 AM EDT Appointment [facility] [address] [place] [address] 07/11/2025 11:30 AM EDT Appointment [facility] [address] [place] [address] 07/18/2025 10:30 AM EDT Appointment [facility] [address] [place] [address] 07/18/2025 11:30 AM EDT Appointment [facility] [address] [place] [address] 07/25/2025 10:30 AM EDT Appointment [facility] [address] [place] [address] 07/25/2025 11:30 AM EDT Appointment [facility] [address] [place] [address] 07/31/2025 9:00 AM EDT Office Visit [facility] [address] [place] [address] Alvarez Zimmer MD [address] [place] [address] 08/20/2025 9:30 AM EDT Clinical Support [facility] [address] [place] [address] 08/20/2025 10:30 AM EDT Social Work [facility] [address] [place] [address] Deysi Ortega [place], [place] [id number] 08/20/2025 11:00 AM EDT Office Visit [facility] [address] [place] [address] Jude Duque MD [address] [place] [address] 10/30/2025 1:20 PM EST Office Visit [facility] Endocrinology [address] [place] [address] Sharif Moreno, DPNicole [address] [place] [address] documented as of this encounter [...] documented as of this encounter Care Teams Broomcorn Sorter Relationship Specialty Start Date End Date Wilma Howard, CHIEF OPERATING ENGINEER [address] [place] [address] PCP - General 04/03/21 09/30/24 Taina Lyles, CHIEF OPERATING ENGINEER [address] [place] [address] PCP - General 10/01/24 12/06/24 Alvarez Zimmer MD [address] [place] [address] PCP - General Family Medicine 12/07/24 Lea Fernando [address] [place] [address] Curtains And Draperies Salesperson Endocrinology 08/29/24 Rachel Ray, CHIEF OPERATING ENGINEER [address] [place] [address] Nurse Practitioner Gastroenterology 09/24/24 Monique Tapia LPN VALUE-[employer]ED [place] [address] TCM Nurse 11/28/24 12/28/24 Shaniqua Trevino LPN TCM Nurse 01/15/25 02/14/25 Tamera Isabel LPN VALUE-BASED TRANSFORMATION PROGRAM Licensed Practical Nurse 05/29/25 documented as of this encounter
--- OUTSIDE RECORDS SUMMARY | 2025-06-24 09:47 | XMS_ITS | Clinical Summary ---
Author Organization [facility] Address [address] [place] [address] Phone Care Team Providers Care Kelly Machine Operator Name Role Phone Taina Lyles Primary Care Provider [phone] Allergies No known active allergies Medications * [...] Insurance [employer] Dual [employer] MCR/GINGER Care Teams Kelly Machine Operator Relationship Specialty Start Date End Date Taina Lyles [address] [place] [address] PCP - General 05/02/23
--- OUTSIDE RECORDS SUMMARY | 2025-06-24 09:47 | XMS_ITS ---
Author Organization [facility] Address [address] [id number] Care Team Providers Care Smalltalk Developer Name Role Phone Lea Fernando Unavailable [phone] Rachel Ray TRAILER ASSEMBLER Unavailable [phone] Alvarez Zimmer MD Primary Care Provider Tamera Isabel LPN Unavailable Unavailabl e Annual Wellness Status:Active (Active) Start date:05/29/2025 Enrollment date:05/29/2025 Enrollment reason:Identified using claims or encounter data Case Team Name Relationship Phone Tamera Isabel LPN(Responsible Staff) Licensed Practical Nurse Continued Care and Services Coordination
--- OUTSIDE RECORDS SUMMARY | 2025-06-24 09:47 | XMS_ITS | Clinical Summary ---
Author Organization [facility] Address [address] [place] [address] Care Team Providers Care Product Development Consultant Name Role Phone Taina Lyles APRN Primary Care Provider [phone] Allergies No known active allergies Medications * [...] (11/02/2022): Added automatically from request for surgery [id number] Colon cancer screening 09/20/201910/26 Overview (09/20/2019): Added automatically from request for surgery [id number] Immunizations Immunization Administration Dates Next Due Flu [...] or slept in a alf (including now)? No 12/01/2022 Abuse Screen Answer [...] history exists Medical Devices Implanted Type Area Medical Insurance Coder Device Identifier Shelf Expiration Date Model / Serial / Lot Implant Implant Description:BILATERAL IOL Clip Gi Lig Hemostasis Resolution 2.8mm - [id number] Implanted:Qty: 1 on 09/27/2019 by Ross Johnson MD at [facility] Implant [employer] 01/02/2022 [id number] / / [id number] Dev Clip Quickclippro Fix 2300mm - [id number] Implanted:Qty: 2 on 09/27/2019 by Ross Johnson MD at [facility] Implant [facility] 05/20/2022 [id number] 2URA / / [id number] Dev Clip Quickclippro Fix 2300mm - [id number] Implanted:Qty: 2 on 09/27/2019 by Ross Johnson MD at [facility] Implant [facility] 04/20/2022 HX20 2URA / / [id number] Dev Clip Endo [id number] Contrl Rot 235cm - [id number] Implanted:Qty: 1 on 01/14/2023 by Lori Rm MD at [facility] Implant N/A: Perianal [employer] 09/27/2025 [id number] / / [id number] Procedures Procedure Name Priority Date/Time Associated Diagnosis [...] - 200 mg/dL 06/16/2024 12:02 AM EDT [facility] Triglycerides 113 0 - 150 mg/dL 06/16/2024 12:02 AM EDT [facility] HDL Cholesterol 51 40 - 60 mg/dL 06/16/2024 12:02 AM EDT [facility] LDL Cholesterol 79 0 - 100 mg/dL 06/16/2024 12:02 AM EDT [facility] VLDL Cholesterol 20 5 - 40 mg/dL 06/16/2024 12:02 AM EDT [facility] LDL/HDL Ratio 1.50 06/16/2024 12:02 AM EDT [facility] Blood Venipuncture / Unknown 06/15/2024 2:00 PM EDT 06/15/2024 3:40 PM EDT Narrative [facility] - 06/16/2024 12:02 AM EDT Cholesterol [...] MD LAB BLOOD ORDERABLES Final Resul t [facility]
[address] [place] [address], * Mammo Diagnostic Digital Tomosynthesis Bilateral With [...] compatible with focal fat necrosis. Taina Lyles STREET LIGHT SERVICER SUPERVISOR IMG MAMMOGRAPHY ORDERABLES Fin al Result * COLONOSCOPY (01/14/2023 9:24 AM EST) Lori Rm MD INTERFACE NEEDS Final Re sult * UPPER GI ENDOSCOPY (12/13/2022 7:32 AM EST) Lori Rm MD INTERFACE NEEDS Final Re sult * Hepatitis C Antibody (10/28/2022 8:43 AM EST) Hepatitis C Ab Non-Reacti ve Non-Reacti ve 10/28/2022 7:36 PM EST [facility] Blood Venipuncture / Unknown 10/28/2022 8:43 AM EST 10/28/2022 9:21 AM EST Narrative [facility] - 10/28/2022 7:36 PM EST Results may be falsely decreased if patient taking Biotin. us Mira Amin APRN LAB BLOOD ORDERABLES Final Result [facility]
[address] [place] [address], [place] [phone] from Last 3 Months or Most Recently [...] Of Support Discussed With: Patient Care Teams Product Development Consultant Relationship Specialty Start Date End Date Taina Lyles, ADRI PCP - General Nurse Practitioner 12/30/22
--- OUTSIDE RECORDS SUMMARY | 2025-06-24 09:47 | XMS_ITS | Encounter Summary ---
Author Organization [employer] ([place], [place], [place], [place]) Address [address] [place] [address] Care Team Providers Care Client Services Manager Name Role Phone Taina Lyles ADRI Primary Care Provider [phone] Encounter Details Date Type Department Care Team (Late st Contact Info) Description 07/07/2021 Transcribed Document [facility] [place] [facility] [place] [address] ProviderWilliam MD [address] [place] [address] Social History Tobacco Use Types Packs/Day Years [...] 07/07/2021 16:13 EDT by CHARLES CUEVAS Mkt Cannon Pinion Adjuster-Utilization Mgt Final Discharge Planning Discharge Arrangements : Patient Post-Acute Information Patient Name: MONIKA ZIMMER Gender: Female : [birth year] Age: 60 Years No Post-Acute Placement(s) Listed No Post-Acute Service(s) Listed No [place] Referral(s) Listed Discharge To Care Management : Home/Residential/[facility] or Self Care -01 CHARLES CUEVAS Mkt Cannon Pinion Adjuster-Utilization Mgt - 07/07/2021 16:13 EDT Electronically signed by Marco Meyers Conversion Licensed Practical Nurse Instructor Cerner at 03/07/2023 9:44 AM CDT documented in this encounter Plan of Treatment Not on file documented as of this encounter Visit Diagnoses Not on filedocumented in this encounter Care Teams Client Services Manager Relationship Specialty Start Date End Date Taina Lyles, INSPECTOR FILTERS [address] [place] [address] PCP - General Nurse Practitioner 06/15/23 documented as of this encounter
--- OUTSIDE RECORDS SUMMARY | 2025-06-24 09:47 | XMS_ITS | Encounter Summary ---
Author Organization [employer] ([place], [place], [place], [place]) Address [address] [place] [address] Care Team Providers Care Physician Practice Consultant Name Role Phone Taina Lyles SILVER BUFFER Primary Care Provider [phone] Encounter Details Date Type Department Care Team (Late st Contact Info) Description 07/08/2021 Transcribed Document [facility] Family [place] [facility] [place] [address] ProviderWilliam MD [address] [place], [place] [address] Social History Tobacco Use Types Packs/Day Years [...] 07/08/2021 9:31 EDT Electronically signed by Luigi [facility] Conversion Die Stamping Press Operator Cerner at 03/07/2023 9:46 AM CDT documented in this encounter Plan of Treatment Not on file documented as of this encounter Visit Diagnoses Not on filedocumented in this encounter Care Teams Physician Practice Consultant Relationship Specialty Start Date End Date Taina Lyles, SILVER BUFFER [address] [place] [address] PCP - General Nurse Practitioner 06/15/23 documented as of this encounter
--- OUTSIDE RECORDS SUMMARY | 2025-06-24 09:47 | XMS_ITS | Encounter Summary ---
Author Organization [employer] ([place], [place], [place], [place]) Address [address] [place] [address] Care Team Providers Care Die Engraver Name Role Phone Adarshfaith Taina Burt APRN Primary Care Provider [phone] Reason for Referral * Consultation (Routine) - Closed Specialty Diagnoses / Procedures Referred By Contac t Referred To Contact Behavioral Health / Psychiatry Diagnoses Memory loss Provider, Not In System [place] Referral ID Status Reason Start Date Expiration Date V isits Requested Visits Authorized [id number] Closed Specialty Services Required 07/08/2023 01/04/2024 1 1 Encounter Details Date Type Department Care Team (Late st Contact Info) Description 07/08/[address] [facility] Scheduling [address] [place] [address] Lashell Fermin APRN [address] [facility] [address] [place] [address] Memory loss (Primary Dx) [...] Date Beau rded Speak language other than Georgian at home Not on file 12/01/2023 Want [...] Primary documented in this encounter Care Teams Die Engraver Relationship Specialty Start Date End Date Taina Lyles, DISTRICT COURT BAILIFF [address] [place] [address] PCP - General Nurse Practitioner 06/15/23 documented as of this encounter
--- OUTSIDE RECORDS SUMMARY | 2025-06-24 09:47 | XMS_ITS ---
Author Organization [facility] Address [address] [place] [address] Care Team Providers Care Billboard Installer Name Role Phone Lea Fernando Unavailable [phone] Rachel Ray CHALK MOLDING MACHINE OPERATOR Unavailable [phone] Alvarez Zimmer MD Primary Care Provider [phone] Tamera Isabel SUPERVISOR HOSPITALITY HOUSE Unavailable Unavailabl e Transplant Episode Kidney Candidate [facility] ([place], [place]) [facility] Evaluation began on 10/30/2024 Marked as Active on 10/30/2024 Kidney CoordinatorWilma Arana RN Fax: N/A Email: N/A Scores Score Value Updated Exceptions/Reas ons CPRA Not available EPTS (Calc) 53 06/24/2025 [facility] Organ Diagnosis Organ Primary Contributory Kidney Diabetes Mellitus - Type II Care Team Name Role Phone Fax Email Wilma Arana RN Kidney Coordinator [phone] N/A N/A Events Pre-Transplant Referred: 10/21/2024 Evaluation began: 10/30/2024 Appointments (05/24/2025 - 07/25/2025) When With Visit [...]
--- OUTSIDE RECORDS SUMMARY | 2025-06-24 09:47 | XMS_ITS | Encounter Summary ---
Author Organization [facility], [facility] Address [address] [place] [address] Phone Care Team Providers Care Lottery Office Manager Name Role Phone Taina Lyles Primary Care Provider [phone] Reason for Visit * Reason Comments Med Refill Encounter Details Date Type Department Care Team (Late st Contact Info) Description 10/17/2021 Refill [facility], [address] [address] Kvng Yepez, [place] Social History [...] on filedocumented in this encounter Care Teams Lottery Office Manager Relationship Specialty Start Date End Date Taina Lyles [address] [place] [address] PCP - General 05/02/23 documented as of this encounter
--- OUTSIDE RECORDS SUMMARY | 2025-06-24 09:47 | XMS_ITS | Encounter Summary ---
Author Organization [employer] ([place], [place], [place], [place]) Address [address] [place] [address] Care Team Providers Care Car Shifter Name Role Phone Taina Lyles APRN Primary Care Provider [phone] Encounter Details Date Type Department Care Team (Late st Contact Info) Description 09/15/2021 Transcribed Document [facility] Family Medicine [address] [place] [address] ProviderWilliam MD [address] [place] [address] Social History Tobacco Use Types Packs/Day Years [...] Reyes MD - 09/15/2021 3:29 PM CDT [address] [address] OPERATIVE REPORT PATIENT IDENTIFICATION: MONIKA ZIMMER (Female - 1960) ACCOUNT / UNIT NUMBER: [id number] / [id number] PRIMARY CARE PHYSICIAN: ERYN PARKINSON APRN [place] [facility] [place] / TIME: 09/15/21 0646 DISCHARGE [...] follow her diet, avoiding caffeine or nicotine. /[id number] Dictated By: VOLODYMYR VILLARREAL E-Signed By: ALDO [id number] [\R\ rep ct labl] [\R\ rep ct ivnm] Medical Disclaimer: This report is to be considered preliminary until reviewed and signed. documented in this encounter Plan of Treatment Not on file documented as of this encounter Visit Diagnoses Not on filedocumented in this encounter Care Teams Car Shifter Relationship Specialty Start Date End Date Taina Lyles, ADRI [address] [place] [address] PCP - General Nurse Practitioner 06/15/23 documented as of this encounter
--- OUTSIDE RECORDS SUMMARY | 2025-06-24 09:47 | XMS_ITS | Encounter Summary ---
Author Organization [facility] Address [address] [place] [address] Care Team Providers Care Classifier Name Role Phone Wilma Howard Ambar RUSH Primary Care Provider [phone] Lea Fernando Unavailable [phone] Rachel Ray MANAGER OF PROJECT MANAGEMENT Unavailable [phone] Taina Lyles MANAGER OF PROJECT MANAGEMENT Primary Care Provider [phone] Monique Tapia CODE INSPECTOR Unavailable Unavailable Alvarez Zimmer MD Primary Care Provider [phone] Shaniqua Trevino CODE INSPECTOR Unavailable Unavailable Tamera Isabel CODE INSPECTOR Unavailable Unavailabl e Reason for Visit * Reason Onset Date Comments Med Refill Med Refill 08/11/2021 Encounter Details Date Type Department Care Team (Late st Contact Info) Description 07/28/2021 Refill [facility] Endocrinology [address] [place] [address] Deysi Antonio MD [address] [facility] [address] [place] [address] Social History Tobacco Use Types [...] Dosage: Test Strips Preferred Pharmacy & Location: [facility] Days of medication remaining (if under 3 days please aida as urgent): Pt is out Best contact number and optimal time of day to reach caller: [phone] Additional comments/information from caller: Note: Please do not reply to this message. Follow-up communication and further actions as a result of this message need to be communicated with the patient directly, if the patient is not active onMyChart. If the patient is active on MyChart, they will receive notification of the communication/outcome via [employer]. documented in this encounter Plan of Treatment Upcoming Encounters Date Type Department Care Team ([facility] st Contact Info) Description 06/27/2025 9:30 AM EDT Appointment [facility] [address] [place] [address] 06/27/2025 10:30 AM EDT Appointment [facility] [address] [place] [address] 07/04/2025 10:30 AM EDT Appointment [facility] [address] [place] [address] 07/04/2025 11:30 AM EDT Appointment [facility] [address] [place] [address] 07/09/2025 2:40 PM EDT Office Visit [facility] Bone & Mineral Metabolism [address] [facility], [address] [place] [address] Ar Dominique MD [address] [facility] [address] [place] [address] 07/11/2025 10:30 AM EDT Appointment [facility] [address] [place] [address] 07/11/2025 11:30 AM EDT Appointment [facility] [address] [place] [address] 07/18/2025 10:30 AM EDT Appointment [facility] [address] [place] [address] 07/18/2025 11:30 AM EDT Appointment [facility] [address] [place] [address] 07/25/2025 10:30 AM EDT Appointment [facility] [address] [place] [address] 07/25/2025 11:30 AM EDT Appointment [facility] [address] [place] [address] 07/31/2025 9:00 AM EDT Office Visit [address] [address] Alvarez Zimmer MD [address] [place] [address] 08/20/2025 9:30 AM EDT Clinical Support [facility] [place] [address] [place] [address] 08/20/2025 10:30 AM EDT Social Work [facility] [address] [place] [address] [place] [address] 08/20/2025 11:00 AM EDT Office Visit [facility] [place] [address] [place] [address] Jude Duque MD [address] [place] [address] 10/30/2025 1:20 PM EST [facility] [address] [place] [address] Sharif Moreno, DPM [address] [place] [address] documented as of this encounter [...] documented as of this encounter Care Teams Classifier Relationship Specialty Start Date End Date Wilma Howard APRN [address] [place] [address] [place] [address] PCP - General 04/03/21 09/30/24 Taina Lyles APRN [address] [place] [address] [place] [address] PCP - General 10/01/24 12/06/24 Alvarez Zimmer MD [address] [place] [address] PCP - General Family Medicine 12/07/24 Lea Fernando [address] [place] [address] [facility] Endocrinology 08/29/24 Rachel Ray, ADRI [address] [place] [address] Nurse Practitioner Gastroenterology 09/24/24 Monique Tapia LPN VALUE-[place]ED [place] [address] TCM Nurse 11/28/24 12/28/24 Shaniqua Trevino LPN TCM Nurse 01/15/25 02/14/25 Tamera Isabel LPN VALUE-BASED TRANSFORMATION PROGRAM Licensed Practical Nurse 05/29/25 documented as of this encounter
--- OUTSIDE RECORDS SUMMARY | 2025-06-24 09:47 | XMS_ITS | Encounter Summary ---
Author Organization [employer] ([place], [place], [place], [place]) Address [address] [place] [address] Care Team Providers Care Material Inspector Name Role Phone Taina Lyles APRN Primary Care Provider Encounter Details Date Type Department Care Team (Late st Contact Info) Description 02/10/2024 Outside Orders [facility] Central Scheduling [address] [place] [address] Taina Lyles APRN [address] [place] [address] Memory loss or impairment (Primary [...] Date Beau rded Speak language other than Puerto Rican at home Not on file 12/01/2023 Want [...] loss documented in this encounter Care Teams Material Inspector Relationship Specialty Start Date End Date Taina Lyles, SHOE REPAIRER [address] [place] [address] PCP - General Nurse Practitioner 06/15/23 documented as of this encounter
--- OUTSIDE RECORDS SUMMARY | 2025-06-24 09:47 | XMS_ITS | Encounter Summary ---
Author Organization [employer] ([place], [place], [place], [place]) Address [address] [place] [address] Care Team Providers Care Sectionizer Name Role Phone Wilfredolayla Taina Burt APRN Primary Care Provider [phone] Encounter Details Date Type Department Care Team (Late st Contact Info) Description 05/18/2022 Transcribed Document [facility] Family Medicine [address] [place] [address] ProviderWilliam MD [address] [place], [place] [id number] Social History Tobacco Use Types Packs/Day Years [...] Date Beau rded Speak language other than Salvadorean at home Not on file 12/01/2023 Want [...] Historical Provider, - 05/18/2022 2:13 PM CDT [place] [address] OPERATIVE REPORT PATIENT IDENTIFICATION: MONIKA ZIMMER (Female - 1960) ACCOUNT / UNIT NUMBER: [id number] / [id number] PRIMARY CARE PHYSICIAN: ERYN PARKINSON APRN PATIENT LOCATION: [facility] [place] ADMIT DATE / TIME: 05/18/22 0804 DISCHARGE [...] We dilated the urethra from 18- to 24-German, then we took a random bladder biopsy. [...] informed of her findings and her progress. /[id number] Dictated By: VOLODYMYR VILLARREAL E-Signed By: ALDO [id number] [id number] [\R\ rep ct labl] [\R\ rep ct ivnm] Medical Disclaimer: This report is to be considered preliminary until reviewed and signed. documented in this encounter Plan of Treatment Not on file documented as of this encounter Visit Diagnoses Not on filedocumented in this encounter Care Teams Sectionizer Relationship Specialty Start Date End Date Taina Lyles, ADRI [address] [place] [address] PCP - General Nurse Practitioner 06/15/23 documented as of this encounter
--- OUTSIDE RECORDS SUMMARY | 2025-06-24 09:47 | XMS_ITS | Encounter Summary ---
Author Organization Healthcare Address [address] [place] [address] Care Team Providers Care Museum Informatics Specialist Name Role Phone Lea Fernando Unavailable [phone] Rachel Ray GATE CLERK Unavailable [phone] Alvarez Zimmer MD Primary Care Provider Tamera Isabel LPN Unavailable Unavailabl e Reason for Referral * Imaging (Routine) - Closed Specialty Diagnoses / Procedures Referred By Eder t Referred To Contact Radiology Diagnoses Other ascites Procedures US Guided Abdominal Paracentesis Preeti Andersen APRN [address] [place] [address] Phone: tel: fax: Referral ID Status Reason Start Date Expiration Date Visits Re quested Visits Authorized [id number] Closed 06/20/2025 12/20/2026 1 1 Encounter Details Date Type Department Care Team (Late st Contact Info) Description 06/20/2025 Orders Only [facility] Interventional Radiology [address] [place] [address] Preeti Andersen APRN [address] [place] [address] Other ascites (Primary Dx) Social [...] you attend [facility] or sikhism services? Patient unable to answer 01/10/2025 Do you belong to any clubs o r organizations such as sabianist groups, unions, fraternal or athletic groups, or [...] any clubs o r organizations such as sabianist groups, unions, fraternal or athletic groups, or [...] more drinks on one occasion? Never 06/05/2025 [facility] [place] of Occupat ional Health - Occupational Stress [...] first t kennedy in the morning (EYE-RN SPINE) to steady your nerves or to get [...] Appointment [facility] [address] [place] [address] 06/27/2025 10:30 AM EDT Appointment [facility] [address] [place] [address] 07/04/2025 10:30 AM EDT Appointment [facility] [address] [place] [address] 07/04/2025 11:30 AM EDT Appointment [facility] [address] [place] [address] 07/09/2025 2:40 PM EDT Office Visit [facility] [address] [facility], [address] [place] [address] Ar Dominique MD [address] [place] [address] 07/11/2025 10:30 AM EDT Appointment [facility] [address] [place] [address] 07/11/2025 11:30 AM EDT Appointment [facility] [address] [place] [facility] [place] [address] 07/18/2025 10:30 AM EDT Appointment [facility] [address] [place] [address] 07/18/2025 11:30 AM EDT Appointment [facility] [address] [place] [address] 07/25/2025 10:30 AM EDT Appointment [facility] [address] [place] [address] 07/25/2025 11:30 AM EDT Appointment [facility] [address] [place] [address] 07/31/2025 9:00 AM EDT Office Visit [address] [address] Alvarez Zimmer MD [address] [place] [address] 08/20/2025 9:30 AM EDT Clinical Support [facility] [address] [place] [address] 08/20/2025 10:30 AM EDT Social Work [facility] [place] [address] [place] [address] Deysi Ortega [place], [place] [id number] 08/20/2025 11:00 AM EDT Office Visit [facility] [address] [place] [address] Jude Duque MD [address] [place] [address] 10/30/2025 1:20 PM EST Office Visit [facility] Endocrinology [address] [place] [address] Sharif Moreno, DPM [address] [place] [address] documented as of this encounter Results * US Guided Abdominal Paracentesis (06/20/2025 12:32 [...] by ascites and intermittent hepatic hydrothorax. TECHNIQUE: [place]: ADRI Andersen Secondary Broomcorn Grader: None. Nurse: Padmini Technologist: Lilliana Phillips Dose: [...] complicated by ascites and intermittent hepatichydrothorax. TECHNIQUE: [place]: ADRI Andersen Secondary Broomcorn Grader: None. Nurse: Padmini Technologist: Lilliana Phillips Dose: [...] on 06/23/2025 9:14 PM us Preeti Andersen GATE CLERK IMG US PROCEDURES Final Result documented in this encounter Visit Diagnoses Diagnosis Other ascites Other ascites- Primary documented in this encounter Additional Health Concerns Assessment Noted Time PHQ-9 Depression Total Score: 6 06/11/20 10:59 AM EDT A fall risk assessment has been complete d for the patient 06/11/2025 10:59 AM EDT A Body Mass Index follow-up plan has been documented for the patient 06/20/2025 2:10 PM EDT documented as of this encounter Care Teams Museum Informatics Specialist Relationship Specialty Start Date End Date Alvarez Zimmer MD [address] [place] [address] PCP - General Family Medicine 12/07/24 Lea Fernando [address] [place] [address] Cash Surrender Calculator Endocrinology 08/29/24 Rachel Ray APRN [address] [place] [address] Nurse Practitioner Gastroenterology 09/24/24 Tamera Isabel LPN VALUE-BASED TRANSFORMATION PROGRAM Licensed Practical Nurse 05/29/25 documented as of this encounter
--- OUTSIDE RECORDS SUMMARY | 2025-06-24 09:47 | XMS_ITS | Encounter Summary ---
Author Organization Healthcare Address [address] [place] [address] Care Team Providers Care Dirt Bike Racer Name Role Phone Lea Fernando Unavailable [phone] Rachel Ray HUMAN PERFORMANCE TECHNOLOGIST Unavailable [phone] Alvarez Zimmer MD Primary Care Provider [phone] Tamera Isabel LPN Unavailable Unavailabl e Reason for Visit * Reason Onset Date Comments Med Refill 06/23/2025 Encounter Details Date Type Department Care Team (Late st Contact Info) Description 06/23/2025 Refill [facility] [address] [facility], [address] [place] [address] Ar Dominique MD [address] [facility] [address] [place] [address] Vitamin D deficiency Social History [...] more drinks on one occasion? Never 06/05/2025 [facility] of Occupat ional [...] drink first t kennedy in the morning (EYE-HERBOLOGIST) to steady your nerves or to get [...] Encounters Date Type Department Care Team ([facility] st Contact Info) Description 06/27/2025 9:30 AM EDT Appointment [facility] [address] [place] [address] 06/27/2025 10:30 AM EDT Appointment [facility] [address] [place] [address] 07/04/2025 10:30 AM EDT Appointment [facility] [address] [place] [address] 07/04/2025 11:30 AM EDT Appointment [facility] [address] [place] [address] 07/09/2025 2:40 PM EDT Office Visit [facility] [address] [facility], [address] [place] [address] Ar Dominique MD [address] [facility] [address] [place] [address] 07/11/2025 10:30 AM EDT Appointment [facility] [address] [place] [address] 07/11/2025 11:30 AM EDT Appointment [facility] [address] [place] [address] 07/18/2025 10:30 AM EDT Appointment [facility] [address] [place] [address] 07/18/2025 11:30 AM EDT Appointment [facility] [address] [place] [address] 07/25/2025 10:30 AM EDT Appointment [facility] [address] [place] [address] 07/25/2025 11:30 AM EDT Appointment [facility] [address] [place] [address] 07/31/2025 9:00 AM EDT Office Visit [facility] [address] [place] [address] Alvarez Zimmer MD [address] [place] [address] 08/20/2025 9:30 AM EDT Clinical Support [facility] [place] [address] [place] [address] 08/20/2025 10:30 AM EDT Social Work [facility] [place] [address] [place] [address] Deysi Ortega [place], [place] [id number] 08/20/2025 11:00 AM EDT Office Visit [facility] [place] [address] [place] [address] Jude Duque MD [address] [place] [address] 10/30/2025 1:20 PM EST Office Visit [facility] Endocrinology [address] [place] [address] Sharif Moreno, DPNicole [address] [place] [address] documented as of this encounter Visit Diagnoses [...] documented as of this encounter Care Teams Dirt Bike Racer Relationship Specialty Start Date End Date Alvarez Zimmer MD [address] [place] [address] PCP - General Family Medicine 12/07/24 Lea Fernando [address] [place] [address] [facility] Endocrinology 08/29/24 Rachel Ray APRN [address] [facility] [address] [place] [address] Nurse Practitioner Gastroenterology 09/24/24 Tamera Isabel, OUTREACH SPECIALIST VALUE-BASED TRANSFORMATION PROGRAM Licensed Practical Nurse 05/29/25 documented as of this encounter
--- OUTSIDE RECORDS SUMMARY | 2025-06-24 09:47 | XMS_ITS | Encounter Summary ---
Author Organization [facility] Address [address] [place] [address] Care Team Providers Care Industrial Court Magistrate Name Role Phone NaseemSeanTorLea Unavailable [phone] Rachel Ray KILN DOOR REPAIRER Unavailable [phone] Alvarez Zimmer MD Primary Care Provider [phone] Tamera Isabel PRINTED CIRCUIT BOARD PCB DESIGNER Unavailable Unavailabl e Reason for Visit * Reason Onset Date Comments HCN Clinical Concern/Question 06/21/2025 Encounter Details Date Type Department Care Team (Late st Contact Info) Description 06/21/2025 Telephone [facility] Medicine [address] [place] [address] Alvarez Zimmer MD [address] [place] [address] HCN Clinical Concern/Question Social History [...] do you attend [facility] or catholic services? Patient unable to answer 01/10/2025 Do you belong to any clubs o r organizations such as mu-ism groups, unions, fraternal or athletic groups, or [...] in a fci (including now)? No 03/06/2025 Humiliation, Afraid, Rape, [...] How often do you attend chur or catholic services? Never 05/29/2025 Do you belong to any clubs o r organizations such as mu-ism groups, unions, fraternal or athletic groups, or [...] 06/05/2025 [facility] of Occupat [...] living in a fci (including now)? No 05/29/2025 CAGE ASSESSMENT Answer [...] drink first t kennedy in the morning (EYE-WOOD FILLER) to steady your nerves or to get [...] home palliative care. Best contact number: Other: [phone] Optimal time of day to reach caller: ANYTIME Additional comments/information from caller: None Note: Please do not reply to this message. Follow-up communication and further actions as a result of this message need to be communicated with the patient directly, if the patient is not active onMyChart. If the patient is active on MyChart, they will receive notification of the communication/outcome via [employer]. documented in this encounter Plan of Treatment Upcoming Encounters Date Type Department Care Team (Late st Contact Info) Description 06/27/2025 9:30 AM EDT Appointment [facility] [address] [place] [address] 06/27/2025 10:30 AM EDT Appointment [facility] [address] [place] [address] 07/04/2025 10:30 AM EDT Appointment [facility] [address] [place] [address] 07/04/2025 11:30 AM EDT Appointment [facility] [address] [place] [address] 07/09/2025 2:40 PM EDT Office Visit [facility] [address] [facility], [address] [place] [address] Ar Dominique MD [address] [place] [address] 07/11/2025 10:30 AM EDT Appointment [facility] [address] [place] [address] 07/11/2025 11:30 AM EDT Appointment [facility] [address] [place] [address] 07/18/2025 10:30 AM EDT Appointment [facility] [address] [place] [address] 07/18/2025 11:30 AM EDT Appointment [facility] [address] [place] [address] 07/25/2025 10:30 AM EDT Appointment [facility] [address] [place] [address] 07/25/2025 11:30 AM EDT Appointment [facility] [address] [place] [address] 07/31/2025 9:00 AM EDT Office Visit [address] [address] Alvarez Zimmer MD [address] [place] [address] 08/20/2025 9:30 AM EDT Clinical Support [facility] [place] [address] [place] [address] 08/20/2025 10:30 AM EDT Social Work [facility] [place] [address] [place] [phone] [place] [address] 08/20/2025 11:00 AM EDT Office Visit [facility] [address] [place] [address] Jude Duque MD [address] [place] [address] 10/30/2025 1:20 PM EST Office Visit [facility] Endocrinology [address] [place] [address] Sharif Moreno, DPM [address] [place] [address] documented as of this encounter [...] as of this encounter Care Teams Industrial Court Magistrate Relationship Specialty Start Date End Date Alvarez Zimmer MD [address] [place] [phone] PCP - General Family Medicine 12/07/24 Lea Fernando [address] [place] [address] Access Clerk Endocrinology 08/29/24 Rachel Ray APRN [address] [place] [address] Nurse Practitioner Gastroenterology 09/24/24 Tamera Isabel LPN VALUE-BASED TRANSFORMATION PROGRAM Licensed Practical Nurse 05/29/25 documented as of this encounter
--- OUTSIDE RECORDS SUMMARY | 2025-06-24 09:48 | XMS_ITS | Referral Summary ---
Author Organization [employer] ([place], [place], [place], [place]) Address [address] [place] [address] Care Team Providers Care Furniture Designer Name Role Phone Wilfredolayla Taina Burt APRN Primary Care Provider [phone] Allergies No known active allergies Medications * [...] Date Beau rded Speak language other than [place]rugu[place] at home Not on file 12/01/2023 Want [...] on file Medical Devices Implanted Type Area Flavor Maker Device Identifier Shelf Expiration Date Model / Serial / Lot Kt Lead Tined 1201 - [id number] Implanted:Qty: 1 on 07/01/2023 by Rory Villarreal MD at [facility] IMPLANTS N/A: Sacrum AXONICS 1201 / [id number] / Neurostimulator Rechrgble R20 5101 - [id number] Implanted:Qty: 1 on 07/01/2023 by Rory Villarreal MD at [facility] IMPLANTS N/A: Sacrum AXONICS 5101 / [id number] / Procedures Procedure Name Priority Date/Time [...] 4:24 AM EDT 07/02/2021 8:24 AM EDT [facility] Historical Provider PATHOLOGY/CYTOLOGY ORDE LOAN Final Result Performing Organization Address City/State/[facility] Co de Phone Number [facility] [address] [phone] from Last 3 Months or Most Recently Relevant to Health Maintenance Insurance [facility] MEDICARE PPO Care Teams Furniture Designer Relationship Specialty Start Date End Date Taina Lyles, SUPER[employer]OR [employer] [address] [place] [id number] PCP - General Nurse Practitioner 06/15/23
--- OUTSIDE RECORDS SUMMARY | 2025-06-24 09:48 | XMS_ITS | Encounter Summary ---
Author Organization Healthcare Address [address] [place] [address] Care Team Providers Care Commercial Mortgage Broker Name Role Phone Lea Fernando Unavailable [phone] Rachel Ray EXTENSION SERVICE SUPERVISOR Unavailable [phone] Alvarez Zimmer MD Primary Care Provider [phone] Tamera Isabel LPN Unavailable Unavailabl e Reason for Visit * Reason Onset Date Comments Med Refill 06/09/2025 Encounter Details Date Type Department Care Team (Late st Contact Info) Description 06/09/2025 Refill [facility] [address] [facility], [address] [place] [address] Ar Dominique MD [address] [facility] [address] [place] [address] Chronic kidney disease, stage 3b [...] week 01/10/2025 How often do you attend up health system or alevism services? Patient unable to answer 01/10/2025 Do you belong to any clubs o r organizations such as religion groups, unions, fraternal or athletic groups, or [...] How often do you attend chur or alevism services? Never 05/29/2025 Do you belong to any clubs o r organizations such as religion groups, unions, fraternal or athletic groups, or [...] drink first t kennedy in the morning (EYE-METAL PICKLING EQUIPMENT OPERATOR) to steady your nerves or to [...] Appointment [facility] [address] [place] [address] 06/27/2025 10:30 AM EDT Appointment [facility] [address] [place] [address] 07/04/2025 10:30 AM EDT Appointment [facility] [address] [place] [address] 07/04/2025 11:30 AM EDT Appointment [facility] [address] [place] [address] 07/09/2025 2:40 PM EDT Office Visit [facility] [address] [facility], [address] [place] [address] Ar Dominique MD [address] [place] [address] 07/11/2025 10:30 AM EDT Appointment [facility] [address] [place] [address] 07/11/2025 11:30 AM EDT Appointment [facility] [address] [place] [address] 07/18/2025 10:30 AM EDT Appointment [facility] [address] [place] [address] 07/18/2025 11:30 AM EDT Appointment [facility] [address] [place] [address] 07/25/2025 10:30 AM EDT Appointment [facility] [address] [place] [address] 07/25/2025 11:30 AM EDT Appointment [facility] [address] [place] [address] 07/31/2025 9:00 AM EDT Office Visit [facility] [address] [place] [address] Alvarez Zimmer MD [address] [place] [address] 08/20/2025 9:30 AM EDT Clinical Support [facility] [place] [address] [place] [address] 08/20/2025 10:30 AM EDT Social Work [facility] [place] [address] [place] [address] Deysi Ortega [place], [place] [id number] 08/20/2025 11:00 AM EDT Office Visit [facility] [place] [address] [place] [address] Jude Duque MD [address] [place] [address] 10/30/2025 1:20 PM EST Office Visit [facility] [address] [place] [id number] Sharif Moreno DPM [address] [place] [address] documented as of this encounter [...] documented as of this encounter Care Teams Commercial Mortgage Broker Relationship Specialty Start Date End Date Alvarez Zimmer MD [address] [place] [address] PCP - General Family Medicine 12/07/24 Lea Fernando [address] [place] [address] Utilization Supervisor Endocrinology 08/29/24 Rachel Ray APRN [address] [facility] [address] [place] [address] Nurse Practitioner Gastroenterology 09/24/24 Tamera Isabel, CLAIM REP VALUE-BASED TRANSFORMATION PROGRAM Licensed Practical Nurse 05/29/25 documented as of this encounter
--- OUTSIDE RECORDS SUMMARY | 2025-06-24 09:48 | XMS_ITS | Clinical Summary ---
Author Organization [employer] ([place], [place], [place], [place]) Address [address] [place] [address] Care Team Providers Care Shoe Stamper Name Role Phone Wilfredolayla Taina Burt APRN Primary Care Provider [phone] Allergies No known active allergies Medications * [...] Date Beau rded Speak language other than Macedonian at home Not on file 12/01/2023 Want [...] Completed 10/30/2019, Medical Devices Implanted Type Area Head Esthetician Device Identifier Shelf Expiration Date Model / Serial / Lot Kt Lead Tined 1201 - [id number] Implanted:Qty: 1 on 07/01/2023 by Rory Villarreal MD at [facility] IMPLANTS N/A: Sacrum AXONICS 1201 / [id number] / Neurostimulator Rechrgble R20 5101 - [id number] Implanted:Qty: 1 on 07/01/2023 by Rory Villarreal MD at [facility] IMPLANTS N/A: Sacrum AXONICS 5101 / [id number] / Procedures Procedure Name Priority Date/Time [...] 4:24 AM EDT 07/02/2021 8:24 AM EDT [facility] Historical Provider PATHOLOGY/CYTOLOGY ORDE RABLES Final Result [facility] [address] [id number] [phone] from Last 3 Months or Most Recently Relevant to Health Maintenance Insurance [employer] MEDICARE PPO Care Teams Shoe Stamper Relationship Specialty Start Date End Date Taina Lyles APRN [address] [place] [address] PCP - General Nurse Practitioner 06/15/23
--- OUTSIDE RECORDS SUMMARY | 2025-06-24 09:48 | XMS_ITS | Encounter Summary ---
Author Organization [facility] Address [address] [place] [address] Care Team Providers Care [employer] Flatbed Driver Name Role Phone Lea Fernando Unavailable [phone] Rachel Ray PRODUCT LISTER Unavailable [phone] Alvarez Zimmer MD Primary Care Provider [phone] Tamera Isabel LPN Unavailable Unavailabl e Reason for Referral * Consultation (Routine) - Authorized Specialty Diagnoses / Procedures Referred By Contac t Referred To Contact Palliative Medicine Diagnoses 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) (CMS/HCC) Protein malnutrition (CMS/HCC) Weight loss Cognitive impairment Alvarez Zimmer MD [address] [place] [address] Phone: tel: fax: Referral ID Status Reason Start Date Expiration Date V isits Requested Visits Authorized [id number] Authorized 06/12/2025 12/12/2026 1 1 Encounter Details Date Type Department Care Team (Late st Contact Info) Description 06/12/2025 Orders Only [facility] [address] [place] [address] Alvarez Zimmer MD [address] [place] [address] Liver cirrhosis secondary to NAIDU [...] How often do you attend chur or rastafarian services? Patient unable to answer [...] any time in the past 12 m [facility], were you homeless or living in [...] 05/29/2025 How often do you attend [facility] or rastafarian services? Never 05/29/2025 Do you belong to [...] more drinks on one occasion? Never 06/05/2025 [facility] [place] of Occupat ional [facility] - Occupational Stress Questionnaire Answer Date Recorded [...] any time in the past 12 m [facility], were you homeless or living in [...] drink first t kennedy in the morning (EYE-SCAFFOLD SETTER) to steady your nerves or to get [...] Appointment [facility] [address] [place] [address] 06/27/2025 10:30 AM EDT Appointment [facility] [address] [place] [address] 07/04/2025 10:30 AM EDT Appointment [facility] [address] [place] [address] 07/04/2025 11:30 AM EDT Appointment [facility] [address] [place] [address] 07/09/2025 2:40 PM EDT Office Visit [facility] [address] [facility], [address] [place] [address] Ar Dominique MD [address] [facility] [address] [place] [address] 07/11/2025 10:30 AM EDT Appointment [facility] [address] [place] [address] 07/11/2025 11:30 AM EDT Appointment [facility] [address] [place], [place] [address] 07/18/2025 10:30 AM EDT Appointment [facility] [address] [place], [place] [address] 07/18/2025 11:30 AM EDT Appointment [facility] [address] [place], [place] [address] 07/25/2025 10:30 AM EDT Appointment [facility] [address] [place], [place] [address] 07/25/2025 11:30 AM EDT Appointment [facility] [address] [place], [place] [address] 07/31/2025 9:00 AM EDT Office Visit [facility] [address] [place] [address] Alvarez Zimmer MD [address] [place] [address] 08/20/2025 9:30 AM EDT Clinical Support [facility] [place] [address] [place] [address] 08/20/2025 10:30 AM EDT Social Work [facility] [place] [address] [place] [address] [place] [address] 08/20/2025 11:00 AM EDT Office Visit [facility] [place] [address] [place] [address] Jude Duque MD [address] [place] [address] 10/30/2025 1:20 PM EST Office Visit [facility] Endocrinology [address] [place] [address] Sharif Moreno, ROSY [address] [place] [address] Scheduled Referrals Name Type Priority [...] documented as of this encounter Care Teams [employer] Flatbed Driver Relationship Specialty Start Date End Date Alvarez Zimmer MD [address] [place] [address] PCP - General Family Medicine 12/07/24 Lea Fernando [address] [place] [address] Underwriting Technician Endocrinology 08/29/24 Rachel Ray APRN [address] [place] [address] Nurse Practitioner Gastroenterology 09/24/24 Planck, Tamera N, COPY ROOM TECHNICIAN VALUE-BASED TRANSFORMATION PROGRAM Licensed Practical Nurse 05/29/25 documented as of this encounter
--- OUTSIDE RECORDS SUMMARY | 2025-06-24 09:48 | XMS_ITS | Clinical Summary ---
Author Organization Healthcare Address [address] [place] [address] Care Team Providers Care Coiled Coil Inspector Name Role Phone Lea Fernando Unavailable [phone] Rachel Ray MINUTE CLERK FOR BASIC TRAFFIC Unavailable [phone] Alvarez Zimmer MD Primary Care Provider Tamera Isabel LPN Unavailable Unavailabl e Allergies [...] units Active ergocalciferol (Vitamin D-2) 1.25 MG (83449 UT) capsuleIndication s:Vitamin D deficiency Take 1 capsule by mouth 1 time per week. 8 capsule 3 025 2024 Active Zegalogue 0.6 MG/0.6ML solution auto-injectorIndi cations:Type 2 diabetes mellitus with hyperglycemia, with long-term current use of insulin ([facility]) Inject 0.6 mg under the [...] artery disease of n ative artery of [place] heart with stable angina pectoris 08/22/2018 Rheumatoid [...] (07/17/2021): Added automatically from request for surgery [id number] Mixed hearing loss of right ear 08/24/2019 [...] Date Type Department Care Team Description 06/23/2025 Orders Only External Location [address] [place] [address] Kandice Maldonado, MINUTE CLERK FOR BASIC TRAFFIC 06/23/2025 Orders Only External Location [address] [place] [address] Kandice Maldonado, MINUTE CLERK FOR BASIC TRAFFIC 06/23/2025 Orders Only External Location [address] [place] [address] Kandice Maldonado, MINUTE CLERK FOR BASIC TRAFFIC 06/23/2025 [facility] Bone & Mineral Metabolism [address], [address] [place] [address] Ar Dominique MD Vitamin D deficiency 06/21/2025 Telephone [facility] [address] [place] [address] Alvarez Zimmer MD HCN Clinical Concern/Question 06/20/2025 1:04 PM EDT - 06/20/2025 11:59 PM EDT Hospital Encounter [facility] [address] [place] [address] Discharge Disposition: Home or Self Care 06/20/2025 9:03 AM EDT - 06/20/2025 1:03 PM EDT Hospital Encounter [facility] [address] [place] [address] Shanthi Rooney Other ascites Discharge Disposition: Home or Self Care 06/20/2025 Telephone [facility] [address] [place] [address] Alvarez Zimmer MD 06/20/2025 Orders Only [facility] [address] [place] [address] Preeti Andersen, ADRI Other ascites (Primary Dx) 06/20/2025 Travel 06/17/2025 Telephone [facility] [address] [place] [address] Deysi Antonio MD 06/14/2025 Telephone [facility] [address] [place] [address] Alvarez Zimmer MD 06/14/2025 Orders Only [facility] [address] [place] [address] Alvarez Zimmer MD 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) (CMS/HCC) (Primary Dx) 06/14/2025 Orders Only [facility] [address] [place] [address] Cheeks, Marianna N, MINUTE CLERK FOR BASIC TRAFFIC Shortness of breath (Primary Dx); Pleural effusion; Other ascites 06/14/[address] [address] Alvarez Zimmer MD 06/14/2025 Orders Only [facility] [address] [place] [address] Cheeks, Marianna N, MINUTE CLERK FOR BASIC TRAFFIC Other ascites (Primary Dx); Pleural effusion; Shortness of breath; Alcoholic cirrhosis of liver with ascites (CMS/HCC) 06/13/2025 1:32 PM EDT - 06/13/2025 11:59 PM EDT Hospital Encounter [facility] [address] [place] [address] Discharge Disposition: Home or Self Care 06/13/2025 10:56 AM EDT - 06/13/2025 1:31 PM EDT Hospital Encounter [facility] [address] [place] [address] Alvarez Mcclure Other ascites Discharge Disposition: Home or Self Care 06/13/2025 Travel 06/12/2025 Travel 06/12/2025 Orders Only [facility] [address] [place] [address] Alvarez Zimmer MD 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) (CMS/HCC) (Primary Dx); Protein malnutrition (CMS/HCC); Weight loss; Cognitive impairment 06/11/2025 11:20 AM EDT Office Visit [facility] [address] [place] [address] Octavia Herrera PA Hepatic encephalopathy (CMS/HCC) (Primary Dx); 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 06/11/2025 10:30 AM EDT Social Work [facility] [address] [facility] [address] [place] [address] Lea Reilly LCSW 06/11/2025 Travel 06/10/2025 Results Follow-Up [facility] [address] [place] [address] Alvarez Zimmer MD 06/09/2025 [facility] [employer] [place] [facility] Mineral Metabolism [address], [address] [place] [address] Ar Dominique MD Chronic kidney disease, stage 3b (CMS/HCC) 06/06/2025 11:20 AM EDT - 06/06/2025 11:59 PM EDT Hospital Encounter [facility] [address] [place] [address] Discharge Disposition: Home or Self Care 06/06/2025 7:58 AM EDT - 06/06/2025 11:19 AM EDT Hospital Encounter [facility] [address] [place] [address] Golden Wilhelm, RN Other ascites Discharge Disposition: Home or Self Care 06/06/2025 Travel 06/05/2025 2:00 PM EDT Office Visit [facility] [address] [place] [address] Alvarez Zimmer MD Medicare annual wellness visit, initial (Primary Dx); Coronary artery disease of [place] artery of [place] heart with stable angina pectoris (CMS/HCC); Diabetic [...] Hyperbilirubinemia; Protein malnutrition (CMS/HCC) 06/05/2025 Travel 06/01/2025 Refill [employer] [place] Mineral Metabolism [address], [address] [place] [address] Ar Dominique MD Chronic kidney disease, stage 3b (CMS/HCC) 06/01/2025 [facility] [address] [facility] [address] [place] [address] Octavia Herrera PA 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) (CMS/HCC) 05/31/2025 12:36 PM EDT - 05/31/2025 8:07 PM EDT Emergency [facility] Emergency [facility] [address] [place] [address] Torrie Turner MD Katirji, Linda Y, MD Altered mental status, unspecified altered mental status type (Primary Dx) Discharge Disposition: Home or Self Care 05/31/2025 Travel 05/30/2025 8:58 AM EDT - 05/30/2025 11:59 PM EDT Hospital Encounter [facility] [address] [place] [address] AayushShirley Abbott RN Other ascites; Type 2 diabetes mellitus with hyperglycemia, with long-term current use of insulin (CMS/HCC); Chronic kidney disease, stage 3b (CMS/HCC) Discharge Disposition: Home or Self Care 05/30/2025 Travel 05/29/2025 Patient Outreach [facility] [address], [address] [place] [address] Tamera Isabel LPN Annual Wellness Visit 05/29/2025 Travel 05/28/2025 Travel 05/23/2025 12:19 PM EDT - 05/23/2025 11:59 PM EDT Hospital Encounter [facility] [address] [place] [address] Discharge Disposition: Home or Self Care 05/23/2025 8:48 AM EDT - 05/23/2025 12:18 PM EDT Hospital Encounter [facility] [address] [place] [address] Kael Mohan, RN Other ascites Discharge Disposition: Home or Self Care 05/23/2025 8:31 AM EDT - 05/23/2025 8:47 AM EDT Hospital Encounter [facility] [address] [place] [address] Kael Mohan, RN Other ascites; End-stage liver disease (CMS/HCC); Type 2 diabetes mellitus with hyperglycemia, with long-term current use of insulin (CMS/HCC) Discharge Disposition: Home or Self Care 05/23/2025 Orders Only [facility] [address] [place] [address] Enmanuel Wetzel MD 05/23/2025 Results Follow-Up [facility] [address] [facility] [address] [place] [phone] Wilma Arana RN 05/23/2025 Travel 05/22/2025 Travel 05/21/[address] [address] Alvarez Zimmer MD 05/21/2025 [facility] [employer] [place] [facility] Mineral Metabolism [address], [address] [place] [address] Ar Dominique MD Chronic kidney disease, stage 3b (CMS/HCC) 05/18/2025 Travel 05/17/2025 9:20 AM EDT Office Visit [facility] [address] [place] [address] Enmanuel Wetzel MD Type 2 diabetes mellitus with hyperglycemia, with long-term current use of insulin (CMS/HCC) (Primary Dx); Chronic kidney disease, stage 3b (CMS/HCC); Dyslipidemia 05/16/2025 11:04 AM EDT - 05/16/2025 11:59 PM EDT Hospital Encounter [facility] [address] [place] [address] Discharge Disposition: Home or Self Care 05/16/2025 8:01 AM EDT - 05/16/2025 11:03 AM EDT Hospital Encounter [facility] [address] [place] [address] Kandice Silva, RN Other ascites Discharge Disposition: Home or Self Care 05/16/2025 Telephone [facility] [address] [place] [address] Tyler Babin 05/16/2025 Telephone [facility] [address] [place] [address] Tyler Babin 05/16/2025 Travel 05/14/2025 [facility] [address] [place] [address] Kacie Buckley APRN Hypomagnesemia 05/10/2025 5:08 PM EDT - 05/10/2025 11:59 PM EDT Hospital Encounter [facility] [address] [place] [address] Discharge Disposition: Home or Self Care 05/10/2025 1:00 PM EDT - 05/10/2025 5:07 PM EDT Hospital Encounter [facility] [address] [place] [address] Abdoul Cuello 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) (CMS/HCC) (Primary Dx); Other ascites Discharge Disposition: Home or Self Care 05/10/2025 Travel 05/09/2025 Travel 05/08/2025 Results Follow-Up [facility] [address] [place] [address] [phone] iWlma Arana RN 05/07/2025 12:09 PM EDT - 05/07/2025 11:59 PM EDT Hospital Encounter [facility] [address] [place] [address] End-stage liver disease (CMS/HCC) Discharge Disposition: Home or Self Care 05/07/2025 10:40 AM EDT Office Visit [facility] [address] [place] [address] Octavia Herrera, PA 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) (CMS/HCC) (Primary Dx); Hepatic encephalopathy (CMS/HCC); Secondary esophageal varices without bleeding (CMS/HCC); Moderate protein-calorie malnutrition (CMS/HCC); Other ascites; Physical deconditioning 05/07/2025 Travel 05/04/[address] [address] Alvarez Zimmer MD Altered mental status, unspecified altered mental status type 05/03/2025 1:50 PM EDT - 05/03/2025 6:33 PM EDT Emergency [facility] Emergency Department [address] [place] [phone] Ck Whitten MD Transient alteration of awareness (Primary Dx) Discharge Disposition: Home or Self Care 05/03/2025 Travel 05/02/2025 9:16 AM EDT - 05/02/2025 11:59 PM EDT Hospital Encounter [facility] [address] [place] [address] Allison Mckee Other ascites Discharge Disposition: Home or Self Care 05/02/2025 Travel 04/30/2025 Travel 04/25/2025 9:30 AM EDT - 04/25/2025 11:59 PM EDT Hospital Encounter [facility] [address] [place] [address] Golden Wilhelm RN Other ascites Discharge Disposition: Home or Self Care 04/25/2025 Travel 04/24/2025 3:30 PM EDT Consult [facility] [address] [place] [address] Sharif Moreno, DPM Diabetic peripheral neuropathy ([facility]) (Primary Dx); Difficulty walking; Onychodystrophy 04/24/2025 Travel 04/23/2025 9:00 AM EDT Office Visit [facility] [address] [place] [address] Brock Mckeon, PharmD Type 2 diabetes mellitus with hyperglycemia, with long-term current use of insulin ([facility]) (Primary Dx) 04/23/2025 Refill [facility] [address] [place] [address] Alvarez Zimmer MD Altered mental status, unspecified altered mental status type 04/22/2025 Telephone [facility] Bone & Mineral Metabolism [address], [address] [place] [address] Roger Carter, PharmD 04/19/2025 Refill [facility] [address] [place] [address] Alvarez Zimmer MD 04/19/2025 Refill [facility] Bone & Mineral Metabolism [address], [address] [place] [address] Ar Dominique MD Chronic kidney disease, stage 3b ([facility]/HCC) 04/19/2025 Refill [facility] [address] [place] [address] Octavia Herrera PA End-stage liver disease ([facility]); Pre-transplant evaluation for liver transplant 04/19/2025 Travel 04/18/2025 12:53 PM EDT - 04/18/2025 11:59 PM EDT Hospital Encounter [facility] [address] [place] [address] Discharge Disposition: Home or Self Care 04/18/2025 9:39 AM EDT - 04/18/2025 12:52 PM EDT Hospital Encounter [facility] [address] [place] [address] Golden Wilhelm, RN Other ascites; Pleural effusion Discharge Disposition: Home or Self Care 04/18/2025 Telephone [facility] [address] [place] [address] Amy Reinoso, RN 04/18/2025 Telephone [facility] [address] [place] [address] Amy Reinoso, RN 04/18/2025 Telephone [facility] [address] [place] [address] Amy Reinoso, RN 04/18/2025 Travel 04/17/2025 1:40 PM EDT Office Visit [address] [address] Lisa Acuna, MINUTE CLERK FOR BASIC TRAFFIC, DNP ETD (Eustachian tube dysfunction), bilateral (Primary Dx) 04/17/2025 Travel 04/17/2025 Telephone [facility] [place] [address] Miranda Hobson, MINUTE CLERK FOR BASIC TRAFFIC Prior-authorization/i nsurance Verification 04/16/2025 Travel 04/11/2025 11:42 AM EDT - 04/11/2025 11:59 PM EDT Hospital Encounter [facility] [address] [place] [address] Discharge Disposition: Home or Self Care 04/11/2025 8:04 AM EDT - 04/11/2025 11:41 AM EDT Hospital Encounter [facility] [address] [place] [address] Shanthi Rooney Pleural effusion Discharge Disposition: Home or Self Care 04/11/2025 8:02 AM EDT - 04/11/2025 8:03 AM EDT Hospital Encounter [facility] [address] [place] [address] Shanthi Rooney Other ascites Discharge Disposition: Home or Self Care 04/11/2025 Travel 04/10/2025 11:40 AM EDT Office Visit [facility] Mineral Metabolism [address], [address] [place] [address] Ar Dominique MD Age-related osteoporosis without current pathological fracture (Primary Dx); Vitamin D deficiency; Chronic kidney disease, stage 3b ([facility]/HCC); Rheumatoid arthritis involving multiple sites with positive rheumatoid factor ([facility]/HCC); Type 2 diabetes mellitus with hyperglycemia, with long-term current use of insulin ([facility]); Spondylosis of lumbar region without myelopathy or radiculopathy; Portal hypertensive gastropathy ([facility]/HCC); 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) ([facility]); Moderate protein-calorie malnutrition ([facility]); Chronic obstructive pulmonary disease, unspecified COPD type ([facility]); Lumbar stenosis with neurogenic claudication; Coronary artery disease of [place] artery of [place] heart with stable angina pectoris ([facility]); Hepatic encephalopathy ([facility]) 04/10/2025 Telephone Before the Call [facility] Bone & Mineral Metabolism [address], [address] [place] [address] Juanis Cuello 04/09/2025 9:30 AM EDT Office Visit [facility] [address] [place] [address] Brock Mckeon, PharmD Type 2 diabetes mellitus with other specified complication, with long-term current use of insulin ([facility]) 04/04/2025 10:58 AM EDT - 04/04/2025 11:59 PM EDT Hospital Encounter [facility] [address] [place] [address] Discharge Disposition: Home or Self Care 04/04/2025 7:17 AM EDT - 04/04/2025 10:57 AM EDT Hospital Encounter [facility] [address] [place] [address] Shirley Jiang RN Other ascites; Age-related osteoporosis without current pathological fracture Discharge Disposition: Home or Self Care 04/04/[address] [place] [address] Alvarez Zimmer MD 04/04/2025 Results Follow-Up [facility] [address] [place] [address] Octavia Herrera, PA 04/04/2025 Travel 04/03/2025 Telephone [facility] Mineral Metabolism [address], [address] [place] [address] [employer] [place] 04/03/2025 Telephone [facility] Mineral Metabolism [address], [address] [place] [address] [employer] [place] [employer], Power 04/03/2025 Travel 04/02/2025 Travel 04/02/2025 Refill [facility] [address] [place] [address] Alvarez Zimmer MD 04/01/2025 Orders Only [facility] [address] [place] [address] Alvarez Zimmer MD 04/01/2025 Orders Only [facility] [address] [place] [address] Alvarez Zimmer MD Hypomagnesemia 03/30/2025 [facility] [address] [place] [address] Alvarez Zimmer MD Med Refill 03/30/2025 Refill [facility] [address] [place] [address] Octavia Herrera, PA 03/30/2025 Refill [facility] [address] [place] [address] Kacie Buckley APRN Hypomagnesemia 03/28/2025 10:33 AM EDT - 03/28/2025 11:59 PM EDT Hospital Encounter [facility] [address] [place] [address] Discharge Disposition: Home or Self Care 03/28/2025 8:08 AM EDT - 03/28/2025 10:32 AM EDT Hospital Encounter [facility] [address] [place] [address] Abdoul Cuello Alcoholic cirrhosis of liver with ascites (CMS/HCC) Discharge Disposition: Home or Self Care 03/28/2025 Travel 03/28/2025 Telephone [facility] [address] [place] [address] Amy Reinoso, PARK from Last 3 Months Immunizations Immunization Administration [...] Maternal Grandfather Alzheimer's disease Maternal Grandmother Christine Mayelin Dementia Maternal Grandmother Mamaw Mayelin Emphysema Maternal Grandmother Christine Sanchezett Arthritis Mother Karime Singletary Depression Mother Karime [...] 3 Jp Zimmer Mental illness Son 3 Jpsage Zimmer Depression Son 4 Viralarnoldo Zimmer Diabetes Son 4 Viral Zimmer Relation Name Status Comments Father Eliseo Singletary Maternal Grandfather Maternal Grandmother Christine Dick Mother Karime Singletary Alive Other Paternal Grandfather Paternal Grandmother Anish Singletary Sister Lj Bernla Alive Son 1 Alive Son 2 Alive Son 3 Jp Zimmer Alive Son 4 Viral Zimmer Alive Social History Tobacco Use Types Packs/Day [...] week 01/10/2025 How often do you attend [facility] or gnosticist services? Patient unable to answer 01/10/2025 Do you belong to any clubs o r organizations such as hoahaoism groups, unions, fraternal or athletic groups, or [...] in the past 12 m [facility], were you homeless or living in a [...] often do you attend chur ch or gnosticist services? Never 05/29/2025 Do you belong to any clubs o r organizations such as hoahaoism groups, unions, fraternal or athletic groups, or [...] more drinks on one occasion? Never 06/05/2025 [facility] of Occupat ional Health - Occupational Stress [...] in the past 12 m [facility], were you homeless or living in a [...] drink first t kennedy in the morning (EYE-BUSINESS TRANSFORMATION ANALYST) to steady your nerves or to get rid of a hangover? 0 10/22/2024 CAGE Questionnaire Score 0 024 Utilities Answer Date Recorded In the past 12 months has th [employer], gas, oil, or water company threatened to [...] [facility] [address] [place] [address] 06/27/2025 10:30 AM EDT Appointment [facility] [address] [place] [address] 07/04/2025 10:30 AM EDT Appointment [facility] [address] [place] [address] 07/04/2025 11:30 AM EDT Appointment [facility] [address] [place] [address] 07/09/2025 2:40 PM EDT Office Visit [facility] Min[facility] [address], [address] [place] [address] Ar Dominique MD [address] [place] [address] 07/11/2025 10:30 AM EDT Appointment [facility] [address] [place] [address] 07/11/2025 11:30 AM EDT Appointment [facility] [address] [place] [address] 07/18/2025 10:30 AM EDT Appointment [facility] [address] [place] [address] 07/18/2025 11:30 AM EDT Appointment [facility] [address] [place] [address] 07/25/2025 10:30 AM EDT Appointment [facility] [address] [place] [address] 07/25/2025 11:30 AM EDT Appointment [facility] [address] [place] [address] 07/31/2025 9:00 AM EDT Office Visit [address] [address] Alvarez Zimmer MD [address] [place] [address] 08/20/2025 9:30 AM EDT Clinical Support [facility] [address] [place] [address] 08/20/2025 10:30 AM EDT Social Work [facility] [address] [place] [address] [place] [address] 08/20/2025 11:00 AM EDT Office Visit [facility] [address] [place] [address] Jude Duque MD [address] [place] [address] 10/30/2025 1:20 PM EST Office Visit [facility] [address] [place] [address] Sharif Moreno, DPM [address] [place] [address] Health Maintenance Due Date Last Done Comments Dental Prophylaxis 1962 Dental X-Ray: Bitewings 1962 Dental X-Ray: Full Mouth 1962 [facility]-Infant/Child/Adol SDOH Screenings 1962 Diabetes: Dental Exam 1972 [facility]-Hepatitis A Vaccines (1 of 2 - Risk 2-dose series) 1981 CT Colonography 2007 FIT-DNA 2007 FIT 2007 FOBT 2007 Sigmoidoscopy 2007 [facility]-Pneumococcal Vaccine: 50+ Years (2 of 2 - PCV) 08/23/2019 08/23/2018 [facility]-RSV Vaccine: 60+ Years or (1 - Risk 60-74 years 1-dose series) 2022 [id number] Vaccine (1 - 2023- season) 2024 Dental Oral Exam 06/17/2025 12/17/2024 [...] Name Priority Date/Time Associated Diagnosis Comments CT MSK OUTSIDE IMAGES 06/23/2025 6:38 PM EDT XR OUTSIDE IMAGES 06/23/2025 5:5 6 PM EDT US OUTSIDE IMAGES 06/23/2025 5:2 9 PM EDT XR CHEST 1 VIEW STAT 06/20/2025 1:38 PM EDT US GUIDED ABDOMINAL PARACENTESIS Routine 06/20/2025 12:32 PM EDT Other ascites US GUIDED THORACENTESIS Routine 06/20/20 12:32 PM EDT Other ascites BODY FLUID, CYTOSPIN, PATHOLOGIST INTERPRETATION Routine 06/20/2025 [...] 1:45 PM EDT US GUIDED THORACENTESIS Routine 06/13/20 1:18 PM EDT Other ascites US GUIDED ABDOMINAL PARACENTESIS Routine 06/13/2025 1:18 PM EDT Other ascites BODY FLUID, CYTOSPIN, PATHOLOGIST INTERPRETATION Routine 06/13/2025 12:35 PM EDT GLUCOSE, PERITONEAL FLUID Routine 06/13/2025 12:35 PM EDT TOTAL PROTEIN, PERITONEAL FLUID Routine 06/13/2025 12:35 PM EDT BODY FLUID CELL COUNT W/ MANUAL DIFFERENTIAL Routine 06/13/2025 12:35 PM EDT PHOSPHORUS, PLASMA Routine 06/11/2025 9: 24 AM EDT Age-related osteoporosis without current pathological [...] End-stage liver disease (CMS/HCC) COMPREHENSIVE URINE DRUG SCREENING,QUALITATIVE ASSAY, >= 27 DRUG CLASSES Routine 06/11/2025 [...] PM EDT Chronic kidney disease, stage 3b ([facility]) Anemia of chronic disease PREALBUMIN, PLASMA Routine 06/05/2025 3: 52 PM EDT Protein malnutrition (CMS/HCC) CONJUGATED BILIRUBIN, PLASMA Routine 06/05/2025 3:52 PM EDT Hyperbilirubinemia URINALYSIS MICROSCOPIC FOR UA REFLEX STAT 05/31/2025 [...] PM EDT BLOOD GAS PANEL, VENOUS STAT 05/31/20 4:01 PM EDT LIPASE, PLASMA STAT 05/31/2025 4:01 PM EDT MAGNESIUM, PLASMA STAT 05/31/2025 4:0 1 PM EDT COMPREHENSIVE METABOLIC PANEL, PLASMA STAT [...] hyperglycemia, with long-term current use of insulin ([facility]) Chronic kidney disease, stage 3b ([facility]/HCC) INSULIN, RANDOM Routine 05/30/2025 9:59 AM EDT Type 2 diabetes mellitus with hyperglycemia, with long-term current use of insulin ([facility]) XR CHEST 1 VIEW STAT 05/23/2025 12:38 PM EDT US GUIDED THORACENTESIS Routine 05/23/20 11:59 AM EDT Other ascites BODY FLUID, [...] 11:14 AM EDT US GUIDED THORACENTESIS Routine 05/16/20 10:32 AM EDT Other ascites US GUIDED ABDOMINAL PARACENTESIS Routine 05/16/2025 10:32 AM EDT Other ascites BODY FLUID, CYTOSPIN, PATHOLOGIST INTERPRETATION Routine 05/16/2025 9:26 AM EDT TOTAL PROTEIN, PERITONEAL FLUID Routine 05/16/2025 9:26 AM EDT BODY FLUID CELL COUNT W/ MANUAL DIFFERENTIAL Routine 05/16/2025 9:26 AM EDT XR CHEST 1 VIEW STAT 05/10/2025 5:16 PM EDT US GUIDED THORACENTESIS Routine 05/10/20 4:57 PM EDT Other ascites US GUIDED [...] End-stage liver disease (CMS/HCC) COMPREHENSIVE URINE DRUG SCREENING,QUALITATIVE ASSAY, >= 27 DRUG CLASSES Routine 05/07/2025 [...] PM EDT BLOOD GAS PANEL, VENOUS STAT 05/03/20 1:50 PM EDT COMPREHENSIVE METABOLIC PANEL, PLASMA [...] 1:15 PM EDT US GUIDED THORACENTESIS Routine 04/18/20 12:27 PM EDT Pleural effusion US GUIDED [...] 11:52 AM EDT US GUIDED THORACENTESIS Routine 04/11/20 11:35 AM EDT Pleural effusion US GUIDED [...] 10:42 AM EDT US GUIDED THORACENTESIS Routine 04/04/20 10:16 AM EDT US GUIDED ABDOMINAL PARACENTESIS Routine 04/04/2025 10:16 AM EDT Other ascites BODY FLUID, CYTOSPIN, PATHOLOGIST INTERPRETATION Routine 04/04/2025 9:21 AM EDT BODY FLUID CELL COUNT W/ MANUAL DIFFERENTIAL Routine 04/04/2025 9:21 AM EDT TOTAL PROTEIN, PERITONEAL FLUID Routine 04/04/2025 9:21 AM EDT PHOSPHORUS, PLASMA Routine 04/04/2025 8: 03 AM EDT Age-related osteoporosis without current pathological fracture IONIZED CALCIUM, SERUM Routine 8:03 AM EDT Age-related osteoporosis without current [...] 11:11 AM EDT US GUIDED THORACENTESIS Routine 03/28/20 10:24 AM EDT Alcoholic cirrhosis of liver with ascites (CMS/HCC) US GUIDED ABDOMINAL PARACENTESIS Routine 03/28/2025 10:24 AM EDT Alcoholic cirrhosis of liver with ascites (CMS/HCC) BODY FLUID, CYTOSPIN, PATHOLOGIST INTERPRETATION Routine 03/28/2025 9:31 AM EDT BODY FLUID CELL COUNT W/ MANUAL DIFFERENTIAL Routine 03/28/2025 9:31 AM EDT BODY FLUID, CYTOSPIN, PATHOLOGIST INTERPRETATION Routine 03/28/2025 9:30 AM EDT PH, PLEURAL FLUID Routine 03/28/2025 9:3 0 AM EDT GLUCOSE, PLEURAL FLUID Routine 9:30 AM EDT ALBUMIN, PLEURAL FLUID Routine 9:30 AM EDT LACTATE DEHYDROGENASE, PLEURAL FLUID [...] (CMS/HCC) Caries DEXA BONE DENSITY Routine 11/07/2024 9:0 9 AM EST End-stage liver disease (CMS/HCC) HEPATITIS C ANTIBODY W/REFLEX TO HCV QUANT PCR STAT 10/22/2024 11:44 AM EST HIV 1/2 ANTIBODY/ANTIGEN SCREEN WITH REFLEX TO HIV I/II DIFFERENTIATION STAT 10/22/2024 11:44 AM EST COLONOSCOPY EXTERNAL RESULT 01/14/2023 CYTO DATA CONVERSION Routine 04/12/2003 12:00 AM EDT from Last 3 Months or Most Recently Relevant to Health Maintenance Results * CT MSK OUTSIDE IMAGES (06/23/2025 6:38 PM EDT) Anatomical Region Laterality Modality Computed Tomogra phy 06/23/2025 6:38 PM EDT us Kandice Maldonado MINUTE CLERK FOR BASIC TRAFFIC IMG CT PROCEDURES Final Res ult * XR OUTSIDE IMAGES (06/23/2025 5:56 PM EDT) Anatomical Region Laterality Modality Radiographic [place] ging 06/23/2025 5:56 PM EDT us Kandice Maldonado MINUTE CLERK FOR BASIC TRAFFIC IMG XR PROCEDURES Final Res ult * US OUTSIDE IMAGES (06/23/2025 5:29 PM EDT) Anatomical Region Laterality Modality Ultrasound 06/23/2025 5:29 PM EDT us Kandice Rachael Maldonado MINUTE CLERK FOR BASIC TRAFFIC IMG US PROCEDURES Final Res ult * XR Chest 1 View (06/20/2025 1:38 [...] MD on 06/20/2025 2:13 PM us Preeti Anedrsen APRN IMG XR PROCEDURES Final Result * US Guided Abdominal Paracentesis (06/20/2025 12:32 PM EDT) Only the most recent of12 resultswithin the time period is included. Anatomical [...] by ascites and intermittent hepatic hydrothorax. TECHNIQUE: Assembler Cl[employer] On Sunglasses: ADRI Andersen Secondary Machining Technician: None. Nurse: Padmini Technologist: Lilliana Phillips Dose: NA Medications: Continuous physiologic monitoring provided by a qualified healthcare professional. Administered: 1% Lidocaine SQ. Antibiotics: NA Time out: 5267 Procedure: After discussion of risks and benefits, [...] complicated by ascites and intermittent hepatichydrothorax. TECHNIQUE: Assembler Clip On Sunglasses: ADRI Andersen Secondary Machining Technician: None. Nurse: Padmini Technologist: Lilliana Phillips Dose: [...] the ascites. [facility]. A total of 4.3 liters [...] on 06/23/2025 9:14 PM us Preeti Andersen MINUTE CLERK FOR BASIC TRAFFIC IMG US PROCEDURES Final Result * US Guided Thoracentesis (06/20/2025 12:32 PM EDT) Only the most recent of10 resultswithin the time period is included. Anatomical [...] by ascites and intermittent hepatic hydrothorax. TECHNIQUE: Assembler Clip On Sunglasses: ADRI Andersen Secondary Machining Technician: None. Nurse: Padmini Technologist: Lilliana Phillips Dose: [...] complicated by ascites and intermittent hepatichydrothorax. TECHNIQUE: Assembler Clip On Sunglasses: ADRI Andersen Secondary Machining Technician: None. Nurse: Padmini Technologist: Lilliana Phillips Dose: [...] on 06/23/2025 9:14 PM us Marianna Gordon MINUTE CLERK FOR BASIC TRAFFIC IMG US PROCEDURES Final Resu lt * (ABNORMAL) Body Fluid Cell Count w/ Diff - Pleural Right (06/20/2025 12:03 PM EDT) Only the most recent of16 resultswithin the time period is included. Color, Body fluid Red LAB HEMATOLOGY METHOD 06/20/2025 8:20 PM EDT [facility] Appearance, Body fluid Cloudy(A) LAB HEMATOLOGY METHOD 06/20/2025 8:20 PM EDT [facility] Volume, Body fluid 5.8 cc LAB [...] LAB HEMATOLOGY METHOD 06/20/2025 8:20 PM EDT [facility] Lymphocytes Absolute, Body fluid 186 uL LAB HEMATOLOGY METHOD 06/20/2025 8:20 PM EDT [facility] Monocytes/Macro phages Absolute, Body fluid 12 uL LAB HEMATOLOGY METHOD 06/20/2025 8:20 PM EDT [facility] Eosinophils Absolute, Body fluid 2 uL [...] LAB HEMATOLOGY METHOD 06/20/2025 8:20 PM EDT [facility] Body Fluid Structure of right pleural cavity / Unknown Non-blood Collection / Unknown 06/20/2025 12:03 PM EDT 06/20/2025 2:44 PM EDT Preeti Ambar Ganesh RUSH LAB BODY FLUIDS AND STOOLS ORDERABLES NO SPECIMEN TYPE/SOURCE Final Result Performing Organization Address City/[facility]/ZIP Co de Phone Number [facility] [address] [place] [address] * Total Protein, Pleural Fluid - Pleural Right (06/20/2025 12:03 PM EDT) Only the most recent of2 resultswithin the time period is included. Total Protein, Fluid 1 g/dL 06/20/2025 5:36 PM EDT [facility] Pleural Fluid Structure of right pleural cavity / Unknown Non-blood Collection / Unknown 06/20/2025 12:03 PM EDT 06/20/2025 2:44 PM EDT Narrative [facility] - 06/20/2025 5:36 PM EDT This test was developed and its performance characteristics determined by [facility]. The U.S. Food and Drug Administration has not approved or cleared this test. However, FDA clearance or approval is not currently required for clinical use. The results are not intended to be used as the sole means for clinical diagnosis or patient management decisions. Preeti Andersen APRN LAB BODY FLUIDS AND STO OLS ORDERABLES Final Result Performing Organization Address [facility] Co de Phone Number [facility] [address] [place] [address] * Lactate Dehydrogenase, Pleural Fluid - Right [...] the following criteria are present: (1) pleural oqtwy-wv-mbezu protein ratio of >0.5, (2) pleural ttmmt-hy-oarpq LDH ratio of >0.6, or (3) a pleural fluid LDH activity that is >2/3 the upper limit of a normal serum LDH activity. Light's criteria may misclassify ~25% of transudates as exudates in heart failure. These can be identified by calculating a kzgql-ku-uhdeppa albumin gradient (>1.2 g/dL) and/or a eclvj-kq-eqilh protein gradient (>3.1 g/dL). Preeti Andersen APRN LAB BODY FLUIDS AND STO OLS ORDERABLES Final Result [facility] [address] [place] [address] * Body fluid, cytospin, pathologist interpretation (06/20/2025 [...] OLS ORDERABLES Final Result Performing Organization Address [facility] Co de Phone Number [facility] [address] [place] [address] * Body Fluid Culture and Gram Stain [...] EDT 06/20/2025 2:53 PM EDT Preeti Andersen APRN LAB MICROBIOLOGY - GENE RAL ORDERABLES Final Result Performing Organization Address [facility] Co de Phone Number [facility] [address] [place] [address] * Albumin - Ascites (06/20/2025 11:59 AM EDT) Only the most recent of2 resultswithin the time period is included. Albumin, Peritoneal Fluid 0.4 g/dL 06/20/2025 4:25 PM EDT [facility] [...] developed and its performance characteristics determined by [facility]. The U.S. Food and Drug Administration has not approved or cleared this test; however, FDA clearance or approval is not currently required for clinical use. The results are not intended to be used as the sole means for clinical diagnosis or patient management decisions. Preetielyssa Andersen MINUTE CLERK FOR BASIC TRAFFIC LAB BODY FLUIDS AND STO OLS ORDERABLES Final Result Performing Organization Address [facility] de Phone Number [facility] [address] [place] [address] * Protein - Ascites (06/20/2025 11:59 AM EDT) Only the most recent of12 resultswithin the time period is included. Total Protein, Fluid 0.7 g/dL 06/20/2025 4:25 PM EDT [facility] Peritoneal Fluid Peritoneal cavity structure / Unknown Non-blood Collection / Unknown 06/20/2025 11:59 AM EDT 06/20/2025 2:42 PM EDT Narrative [facility] - 06/20/2025 4:25 PM EDT This test was developed and its performance characteristics determined by [facility]. The U.S. Food and Drug Administration has not approved or cleared this test. However, FDA clearance or approval is not currently required for clinical use. The results are not intended to be used as the sole means for clinical diagnosis or patient management decisions. [facility]elyssa [facility] LAB BODY FLUIDS AND STO OLS ORDERABLES Final Result Performing Organization Address [facility] de Phone Number [facility] [address] [place] [address] * Glucose - Ascites (06/13/2025 12:35 PM EDT) Only the most recent of3 resultswithin the time period is included. Glucose, Fluid 179 mg/dL 06/13/2025 4:01 PM EDT [facility] Peritoneal Fluid Peritoneal cavity structure / Unknown Non-blood Collection / Unknown 06/13/2025 12:35 PM EDT 06/13/2025 3:20 PM EDT Narrative [facility] - 06/13/2025 4:01 PM [...] Glucose < 50 mg/dL. us Shaniqua Mccurdy MINUTE CLERK FOR BASIC TRAFFIC LAB BODY FLUIDS AND STOOLS O RDERABLES Final Result Performing Organization Address [facility] Co de Phone Number [facility] [address] [place] [address] * Bone Specific Alkaline Phosphatase (06/11/2025 9:24 AM EDT) Pathologist [facility] Bone Specific Alkaline Phosphatase 31.6 ug/L 06/11/2025 10:45 AM EDT [facility] Comment: BSAP (Ostase) Reference Values, Female, age 18 years and up: Premenopausal: 4.5 to 16.9 ug/L Postmenopausal: 7.0 to 22.4 ug/L Blood Venous blood specimen / Unknown Venipuncture / Unknown 06/11/2025 9:24 AM EDT 06/11/2025 9:55 AM EDT Ar Dominique MD LAB REF LAB BLOOD AND FLUID OR D Final Result Performing Organization Address [facility] Co de Phone Number [facility] [address] [place] [address] * Pain Management, Quantitative Urine Drug Testing (06/11/2025 9:24 AM EDT) Only the most recent of2 resultswithin the time period is included. [place] Alprazolam <20 <20 ng/mL 06/13 1:50 PM EDT [facility] [place] Midazolam <20 <20 ng/mL 2024 1:50 PM EDT [facility] [place] Triazolam <20 <20 ng/mL 2024 1:50 PM EDT [facility] Alprazolam <10 <10 ng/mL 06/13/2025 1:50 PM EDT [facility] Aminoclonazepam <20 <20 ng/mL 1:50 PM EDT [facility] Amphetamine <50 <50 ng/mL 06/13/2025 1:50 PM EDT [facility] Benzoylecgonine <50 <50 ng/mL 1:50 PM EDT [facility] Buprenorphine <10 <10 ng/mL 06/13/2025 1:50 PM EDT [facility] Buprenorphine Glucuronide <50 <50 ng/mL 06/13/2025 1:50 PM EDT [facility] Butalbital <50 <50 ng/mL 06/13/2025 1:50 PM EDT [facility] 9 Carboxy THC <10 <10 ng/mL 06/13/2025 1:50 PM EDT [facility] 9 Carboxy THC Glucuronide <25 <25 ng/mL 06/13/2025 1:50 PM EDT [facility] Clonazepam <10 <10 ng/mL 06/13/2025 1:50 PM EDT [facility] Codeine <50 <50 ng/mL 06/13/2025 1:50 PM EDT [facility] Codeine Glucuronide <50 <50 ng/mL 06/13 1:50 PM EDT [facility] Cyclobenzaprine <50 <50 ng/mL 1:50 PM EDT [facility] Desmethyl Tramadol <50 <50 ng/mL 2024 1:50 PM EDT [facility] Diazepam <10 <10 ng/mL 06/13/2025 1:50 PM EDT [facility] EDDP - Methadone Metabolite <50 <50 ng/mL 06/13/2025 1:50 PM EDT [facility] Fentanyl <1 <1 ng/mL 06/13/2025 1:50 PM EDT [facility] Hydrocodone <50 <50 ng/mL 06/13/2025 1:50 PM EDT [facility] Hydromorphone <50 <50 ng/mL 06/13/2025 1:50 PM EDT [facility] Hydromorphone Glucuronide <50 <50 ng/mL 06/13/2025 1:50 PM EDT [facility] Lorazepam <20 <20 ng/mL 06/13/2025 1:50 PM EDT [facility] Lorazepam Glucuronide <50 <50 ng/mL 06/13/2025 1:50 PM EDT [facility] MDA <50 <50 ng/mL 06/13/2025 1:50 PM EDT [facility] MDMA <50 <50 ng/mL 06/13/2025 1:50 PM EDT [facility] Meperidine <50 <50 ng/mL 06/13/2025 1:50 PM EDT [facility] Methadone <50 <50 ng/mL 06/13/2025 1:50 PM EDT [facility] Methamphetamine <50 <50 ng/mL 1:50 PM EDT [facility] Methylphenidate <50 <50 ng/mL 1:50 PM EDT [facility] 6 Monoacetyl morphine <10 <10 ng/mL 06/13/2025 1:50 PM EDT [facility] Morphine <50 <50 ng/mL 06/13/2025 1:50 PM EDT [facility] Morphine Glucuronide <50 <50 ng/mL 05/22 1:50 PM EDT [facility] Naloxone <50 <50 ng/mL 06/13/2025 1:50 PM EDT [facility] Naloxone Glucuronide <50 <50 ng/mL 05/22 1:50 PM EDT [facility] Norbuprenorphine <10 <10 ng/mL 06/13/20 1:50 PM EDT [facility] Norbuprenorphine Glucuronide <50 <50 ng/mL 06/13/2025 1:50 PM EDT [facility] Nordiazepam <20 <20 ng/mL 06/13/2025 1:50 PM EDT [facility] Norfentanyl <2 <2 ng/mL 06/13/2025 1:50 PM EDT [facility] Normeperidine <50 <50 ng/mL 06/13/2025 1:50 PM EDT [facility] PCP Quant, Ur <50 <50 ng/mL 06/13/2025 1:50 PM EDT [facility] Phenobarbital <50 <50 ng/mL 06/13/2025 1:50 PM EDT [facility] Oxazepam <20 <20 ng/mL 06/13/2025 1:50 PM EDT [facility] Oxazepam Glucuronide <50 <50 ng/mL 05/22 1:50 PM EDT [facility] Oxycodone <50 <50 ng/mL 06/13/2025 1:50 PM EDT [facility] Oxymorphone <50 <50 ng/mL 06/13/2025 1:50 PM EDT [facility] Oxymorphone Glucuronide <50 <50 ng/mL 06/13/2025 1:50 PM EDT [facility] Secobarbital <50 <50 ng/mL 06/13/2025 1:50 PM EDT [facility] Tramadol <50 <50 ng/mL 06/13/2025 1:50 PM EDT [facility] Temazepam <20 <20 ng/mL 06/13/2025 1:50 PM EDT [facility] Temazepam Glucuronide <50 <50 ng/mL 06/13/2025 1:50 PM EDT [facility] Urine Urine specimen obtained by clean catch procedure / Unknown Non-blood Collection / Unknown 06/11/2025 9:24 AM EDT 06/11/2025 9:57 AM EDT Narrative [facility] - 06/13/2025 1:50 PM EDT This [...] laboratory. Test performed by LC-MS/MS at the [facility]. This test was developed and its performance characteristics determined by [facility]. It has not been cleared or approved by the FDA. The laboratory is regulated under CLIA as qualified to perform high-complexity testing. This test is used for clinical purposes. Gerson Arora MD LAB URINE ORDERABLES Final Resul t [facility] [address] [place] [address] * C-Telopeptide (06/11/2025 9:24 AM EDT) C Telopeptide Beta Cross Linked Serum Result 1083 pg/mL 06/13/2025 1:13 AM EDT [employer]) Blood Venous blood specimen / Unknown Venipuncture / Unknown 06/11/2025 9:24 AM EDT 06/11/2025 9:54 AM EDT Narrative [facility]) - 06/13/2025 1:13 AM EDT Premenopausal Females: 136-689 pg/mL Postmenopausal Females: 177-1015 pg/mL REFERENCE INTERVAL: C-Telopeptide, Ecnq-Pczwj-Yuhntl, Serum Access complete set of age- and/or gender-specific reference intervals for this test in the [facility] Test Directory ([employer]). Performed By: [facility] [address] [place] [address] Tester Equipment: Tank Orona MD, PhD CLIA Number: [id number] Ar Dominique MD LAB BLOOD ORDERABLES Final Res ult [facility] [employer]) [address] [place] [address] * Nicotine Cotinine Metabolite (06/11/2025 9:24 AM EDT) Only the most recent of2 resultswithin the time period is included. NICOTINE <5 <5 ng/mL 06/13/2025 6:2 3 PM EDT [facility] Cotinine <5 <5 ng/mL 06/13/2025 6:2 3 PM EDT [facility] Blood Venous blood specimen / Unknown Venipuncture / Unknown 06/11/2025 9:24 AM EDT 06/11/2025 9:55 AM EDT Narrative [facility] - 06/13/2025 6:23 PM EDT Testing performed by LC-MS/MS at the [facility] Special Chemistry/Toxicology Laboratory. This test was developed and its performance characteristics determined by [facility]. This assay has not been cleared by the FDA. The laboratory is regulated under CLIA as qualified to perform high-complexity testing. This test is used for clinical purposes. us Gerson Arora MD LAB BLOOD ORDERABLES Final Resul t [facility] [address] [place] [address] * Osteocalcin by ECIA (06/11/2025 9:24 AM EDT) Pathologist [facility] OSTEOCALCIN BY ECIA 28 8 - 36 ng/mL 06/13/2025 1:13 AM EDT [employer]) Blood Venous blood specimen / Unknown Venipuncture / Unknown 06/11/2025 9:24 AM EDT 06/11/2025 10:00 AM EDT Narrative [facility]) - 06/13/2025 1:13 AM EDT INTERPRETIVE INFORMATION: Osteocalcin by ECIA In patients with renal failure, the osteocalcin result may be directly elevated, due to impaired clearance, and/or indirectly elevated due to renal osteodystrophy. Access complete set of age- and/or gender-specific reference intervals for this test in the [facility] Test Directory ([employer]). Performed By: [facility] [address] [place] [address] Tester Equipment: Tank Orona MD, PhD CLIA Number: [id number] us Ar Dominique MD LAB BLOOD ORDERABLES Final Res ult [employer]) [address] [id number] * Alcohol Urine (06/11/2025 9:24 AM EDT) Only the most recent of2 resultswithin the time period is included. Alcohol Urine Negative Negative 06/11/2025 2:20 PM EDT [facility] Urine Urine specimen obtained by clean catch procedure / Unknown Non-blood Collection / Unknown 06/11/2025 9:24 AM EDT 06/11/2025 9:57 AM EDT Narrative [facility] - 06/11/2025 2:20 PM EDT The correlation between urine and serum ethanol concentration is highly variable. Test performed by Gas Chromatography at the [facility]. This test was developed and its performance characteristics determined by [facility]. It has not been cleared or approved by the FDA.The laboratory is regulated under CLIA as qualified to perform high-complexity testing. This test is used for clinical purposes only. Gerson Arora MD LAB URINE ORDERABLES Final Resul t [facility] [address] [place] [address] * (ABNORMAL) Comprehensive Urine Drug Screening, Qualitative Assay, >= 27 Drug Classes (59:24 AM EDT) Only the most recent of2 resultswithin the time period is included. Acetaminophen Negative Negative 06/11/2025 4:37 PM EDT [facility] Alprazolam Negative Negative 06/11/2025 4:37 PM EDT [facility] Amantadine Negative Negative 06/11/2025 4:37 PM EDT [facility] Amitriptyline Negative Negative 06/11/2025 4:37 PM EDT [facility] Amphetamine Negative Negative 06/11/2025 4:37 PM EDT [facility] Atenolol Negative Negative 06/11/2025 4:37 PM EDT [facility] Benzoylecgonine Negative Negative 4:37 PM EDT [facility] Bisoprolol Negative Negative 06/11/2025 4:37 PM EDT [facility] Bupropion Negative Negative 06/11/2025 4:37 PM EDT [facility] Butalbital Negative Negative 06/11/2025 4:37 PM EDT [facility] Carbamazepine Negative Negative 06/11/2025 4:37 PM EDT [facility] Carisoprodol Negative Negative 06/11/2025 4:37 PM EDT [facility] Chlorpheniramine Negative Negative 06/11/20 4:37 PM EDT [facility] Citalopram Negative Negative 06/11/2025 4:37 PM EDT [facility] Clindamycin Negative Negative 06/11/2025 4:37 PM EDT [facility] Clonidine Negative Negative 06/11/2025 4:37 PM EDT [facility] Clopidogrel / Ticlopidine Negative Negative 06/11/2025 4:37 PM EDT [facility] Cocaethylene Negative Negative 06/11/2025 4:37 PM EDT [facility] Cocaine Negative Negative 06/11/2025 4:37 PM EDT [facility] Codeine Negative Negative 06/11/2025 4:37 PM EDT [facility] Cyclobenzaprine Negative Negative 4:37 PM EDT [facility] [facility] Desvenlafaxine Negative Negative 06/11/2025 4:37 PM EDT [facility] Dextromethorphan Negative Negative 06/11/20 4:37 PM EDT [facility] Diazepam Negative Negative 06/11/2025 4:37 PM EDT [facility] Diltiazem Negative Negative 06/11/2025 4:37 PM EDT [facility] Diphenhydramine Negative Negative 4:37 PM EDT [facility] Doxepine Negative Negative 06/11/2025 4:37 PM EDT [facility] Doxylamine Negative Negative 06/11/2025 4:37 PM EDT [facility] EDDP-Methadone metabolite Negative Negative 06/11/2025 4:37 PM EDT [facility] Fentanyl Negative Negative 06/11/2025 4:37 PM EDT [facility] Fluconazole Negative Negative 06/11/2025 4:37 PM EDT [facility] Fluoxetine Negative Negative 06/11/2025 4:37 PM EDT [facility] Guaifenesin Negative Negative 06/11/2025 4:37 PM EDT [facility] Haloperidol Negative Negative 06/11/2025 4:37 PM EDT [facility] Heroin/6-SANA Negative Negative 06/11/2025 4:37 PM EDT [facility] Hydrocodone Negative Negative 06/11/2025 4:37 PM EDT [facility] Hydroxyzine / Cetirizine metabolite Negative Negative 06/11/2025 4:37 PM EDT [facility] Ibuprofen Negative Negative 06/11/2025 4:37 PM EDT [facility] Imipramine Negative Negative 06/11/2025 4:37 PM EDT [facility] Ketamine Negative Negative 06/11/2025 4:37 PM EDT [facility] Labetolol Negative Negative 06/11/2025 4:37 PM EDT [facility] Lamotrigine Negative Negative 06/11/2025 4:37 PM EDT [facility] Levetiracetam Negative Negative 06/11/2025 4:37 PM EDT [facility] Lidocaine Positive(A) Negative 06/11/2025 4:37 PM EDT [facility] MDA Negative Negative 06/11/2025 4:37 PM EDT [facility] MDMA Negative Negative 06/11/2025 4:37 PM EDT [facility] Memantine Negative Negative 06/11/2025 4:37 PM EDT [facility] Meperidine Negative Negative 06/11/2025 4:37 PM EDT [facility] Meprobamate Negative Negative 06/11/2025 4:37 PM EDT [facility] Metaxalone Negative Negative 06/11/2025 4:37 PM EDT [facility] Methamphetamine Negative Negative 4:37 PM EDT [facility] Methocarbamol Negative Negative 06/11/2025 4:37 PM EDT [facility] Methylecgonine Negative Negative 06/11/2025 4:37 PM EDT [facility] Metoclopramide Negative Negative 06/11/2025 4:37 PM EDT [facility] Metoprolol Negative Negative 06/11/2025 4:37 PM EDT [facility] Metronidazole Negative Negative 06/11/2025 4:37 PM EDT [facility] Midazolam Negative Negative 06/11/2025 4:37 PM EDT [facility] Midazolam Metabolite Negative Negative 06/11/2025 4:37 PM EDT [facility] Mirtazapine Negative Negative 06/11/2025 4:37 PM EDT [facility] Misc Test Result Negative Negative 06/11/20 4:37 PM EDT [facility] Naproxen Negative Negative 06/11/2025 4:37 PM EDT [facility] Nefazodone Negative Negative 06/11/2025 4:37 PM EDT [facility] Norfentanyl Negative Negative 06/11/2025 4:37 PM EDT [facility] Nortriptyline Negative Negative 06/11/2025 4:37 PM EDT [facility] Ordanstron Negative Negative 06/11/2025 4:37 PM EDT [facility] Oxcarbazepine Negative Negative 06/11/2025 4:37 PM EDT [facility] Oxycodone Negative Negative 06/11/2025 4:37 PM EDT [facility] Paroxethine Negative Negative 06/11/2025 4:37 PM EDT [facility] Phenobarbital Negative Negative 06/11/2025 4:37 PM EDT [facility] Phentermine Negative Negative 06/11/2025 4:37 PM EDT [facility] Phenytoin Negative Negative 06/11/2025 4:37 PM EDT [facility] Primidone Negative Negative 06/11/2025 4:37 PM EDT [facility] Promethazine Negative Negative 06/11/2025 4:37 PM EDT [facility] Propofol Negative Negative 06/11/2025 4:37 PM EDT [facility] Propranolol Negative Negative 06/11/2025 4:37 PM EDT [facility] Quetiapine Negative Negative 06/11/2025 4:37 PM EDT [facility] Quinine Negative Negative 06/11/2025 4:37 PM EDT [facility] Rantidine Negative Negative 06/11/2025 4:37 PM EDT [facility] Sertraline Negative Negative 06/11/2025 4:37 PM EDT [facility] Spironolactone Negative Negative 06/11/2025 4:37 PM EDT [facility] Tizanidine Negative Negative 06/11/2025 4:37 PM EDT [facility] Topiramate Negative Negative 06/11/2025 4:37 PM EDT [facility] Tramadol Negative Negative 06/11/2025 4:37 PM EDT [facility] Trazadone/ Trazadone metabolite Negative Negative 06/11/2025 4:37 PM EDT [facility] Trimethoprim Negative Negative 06/11/2025 4:37 PM EDT [facility] Valproic Acid Negative Negative 06/11/2025 4:37 PM EDT [facility] Venlafaxine Negative Negative 06/11/2025 4:37 PM EDT [facility] Verapamil Negative Negative 06/11/2025 4:37 PM EDT [facility] Zolpidem Negative Negative 06/11/2025 4:37 PM EDT [facility] Xylazine Negative Negative 06/11/2025 4:37 PM EDT [facility] Urine Urine specimen obtained by clean catch procedure / Unknown Non-blood Collection / Unknown 06/11/2025 9:24 AM EDT 06/11/2025 9:56 AM EDT us Gerson Arora MD LAB URINE ORDERABLES Final Resul t [facility] [address] [place] [address] * (ABNORMAL) Protime-INR (06/11/2025 9:24 AM EDT) Only the most recent of6 resultswithin the time period is included. Prothrombin Time 20.9(H) 12.0 - 14.3 sec LAB COAGULATION METHOD 06/11/2025 10:19 AM EDT [facility] INR 1.8(H) 0.9 - 1.1 LAB COAGULATION METHOD 06/11/2025 10:19 AM EDT [facility] Blood Venous blood specimen / Unknown Venipuncture / Unknown 06/11/2025 9:24 AM EDT 06/11/2025 9:55 AM EDT Narrative [facility] - 06/11/2025 10:19 AM EDT OPTIMAL INR RANGES FOR PATIENT ON ORAL ANTICOAGULANT THERAPY Prevention of venous thromboembolism INR 2.0 to 3.0 In patients with heart disease: Atrial fibrillation INR 2.0 to 3.0 Valvular heart disease INR 2.0 to 3.0 Tissue heart valves INR 2.0 to 3.0 Mechanical prosthetic valves INR 2.5 to 3.5 Prevention of recurrent MD INR 2.5 to 3.5 us Gerson Arora MD LAB BLOOD ORDERABLES Final Resul t [facility] [address] [place] [address] * (ABNORMAL) CBC w/o differential (06/11/2025 9:24 AM EDT) Only the most recent of4 resultswithin the time period is included. WBC Count 4.49 3.70 - 10.30 10*3/uL LAB HEMATOLOGY METHOD 06/11/2025 10:12 AM EDT [facility] RBC Count 3.17(L) 3.90 - 5.20 10*6/uL LAB HEMATOLOGY METHOD 06/11/2025 10:12 AM EDT [facility] HGB 10.0(L) 11.2 - 15.7 g/dL LAB HEMATOLOGY METHOD 06/11/2025 10:12 AM EDT [facility] HCT 31.0(L) 34.0 - 45.0 % LAB HEMATOLOGY METHOD 06/11/2025 10:12 AM EDT [facility] Platelet Count 68(L) 155 - 369 10*3/uL LAB HEMATOLOGY METHOD 06/11/2025 10:12 AM EDT [facility] MCV 98 79 - 98 fL LAB HEMATOLOGY METHOD 06/11/2025 10:12 AM EDT [facility] MCH 31.5 26.0 - 32.0 pg LAB HEMATOLOGY METHOD 06/11/2025 10:12 AM EDT [facility] MCHC 32.3 30.7 - 35.5 g/dL LAB HEMATOLOGY METHOD 06/11/2025 10:12 AM EDT [facility] RDW 17.3(H) 11.5 - 14.5 % LAB HEMATOLOGY METHOD 06/11/2025 10:12 AM EDT [facility] MPV 10.1 8.8 - 12.5 fL LAB HEMATOLOGY METHOD 06/11/2025 10:12 AM EDT [facility] nRBC 0.0 <=0.0 per 100 WBCs LAB HEMATOLOGY METHOD 06/11/2025 10:12 AM EDT [facility] Blood Venous blood specimen / Unknown Venipuncture / Unknown 06/11/2025 9:24 AM EDT 06/11/2025 9:56 AM EDT us Gerson Arora MD LAB BLOOD ORDERABLES Final Resul t Performing Organization Address City/[facility]/ZIP Co de Phone Number [facility] [address] [place] [address] * Phosphorus, Plasma (06/11/2025 9:24 AM EDT) Only the most recent of2 resultswithin the time period is included. Phosphorus, Plasma 4.0 2.5 - 4.5 mg/dL 06/11/2025 10:24 AM EDT [facility] Blood Venous blood specimen / Unknown Venipuncture / Unknown 06/11/2025 9:24 AM EDT 06/11/2025 9:54 AM EDT us Ar Dominique MD LAB BLOOD ORDERABLES Final Res ult Performing Organization Address City/[facility]/ZIP Co de Phone Number [facility] [address] [place] [address] * (ABNORMAL) Comprehensive metabolic panel (06/11/2025 9:24 AM EDT) Only the most recent of6 resultswithin the time period is included. Glucose, Plasma 238(H) 74 - 99 mg/dL 06/11/2025 10:24 AM EDT [facility] BUN, Plasma 40(H) 8 - 23 mg/dL 06/11/2025 10:24 AM EDT [facility] Creatinine, Plasma 1.58(H) 0.60 - 1.10 mg/dL 06/11/2025 10:24 AM EDT [facility] BUN/Creatinine Ratio 25 06/11/2025 10:24 AM EDT [facility] Sodium, Plasma 137 136 - 145 mmol/L 06/11/2025 10:24 AM EDT [facility] Potassium, Plasma 4.3 3.6 - 4.9 mmol/L 06/11/2025 10:24 AM EDT [facility] Chloride, Plasma 108(H) 97 - 107 mmol/L 06/11/2025 10:24 AM EDT [facility] CO2, Plasma 18(L) 22 - 29 mmol/L 06/11/2025 10:24 AM EDT [facility] Anion Gap 11 6 - 16 mmol/L 06/11/2025 10:24 AM EDT [facility] Total Calcium, Plasma 8.5(L) 8.9 - 10.2 mg/dL 06/11/2025 10:24 AM EDT [facility] Total Protein 7.2 6.3 - 7.9 g/dL 06/11/2025 10:24 AM EDT [facility] Albumin, Plasma 3.3(L) 3.5 - 5.2 g/dL 06/11/2025 10:24 AM EDT [facility] AST, Plasma 53(H) 10 - 35 U/L 06/11/2025 10:24 AM EDT [facility] ALT, Plasma 21 10 - 35 U/L 06/11/2025 10:24 AM EDT [facility] Alkaline Phosphatase, Plasma 211(H) 46 - 142 U/L 06/11/2025 10:24 AM EDT [facility] Total Bilirubin, Plasma 2.8(H) 0.2 - 1.1 mg/dL 06/11/2025 10:24 AM EDT [facility] eGFRcr 36.9 mL/min/1.7 3m*2 06/11/2025 10:24 AM EDT [facility] Comment:Reported eGFRcr in m L/min/1.73m2 is based the CKD-EPI 2020 equation that does not use a race coefficient. Blood Venous blood specimen / Unknown Venipuncture / Unknown 06/11/2025 9:24 AM EDT 06/11/2025 9:54 AM EDT us Gerson Arora MD LAB BLOOD ORDERABLES Final Resul t [facility] [address] [place] [address] * (ABNORMAL) CBC and Differential (06/05/2025 3:52 PM EDT) Only the most recent of3 resultswithin the time period is included. WBC Count 4.22 3.70 - 10.30 10*3/uL LAB HEMATOLOGY METHOD 06/05/2025 6:35 PM EDT [facility] RBC Count 3.21(L) 3.90 - 5.20 10*6/uL LAB HEMATOLOGY METHOD 06/05/2025 6:35 PM EDT [facility] HGB 10.0(L) 11.2 - 15.7 g/dL LAB HEMATOLOGY METHOD 06/05/2025 6:35 PM EDT [facility] HCT 31.4(L) 34.0 - 45.0 % LAB HEMATOLOGY METHOD 06/05/2025 6:35 PM EDT [facility] Platelet Count 57(L) 155 - 369 10*3/uL LAB HEMATOLOGY METHOD 06/05/2025 6:35 PM EDT [facility] MCV 98 79 - 98 fL LAB HEMATOLOGY METHOD 06/05/2025 6:35 PM EDT [facility] MCH 31.2 26.0 - 32.0 pg LAB HEMATOLOGY METHOD 06/05/2025 6:35 PM EDT [facility] MCHC 31.8 30.7 - 35.5 g/dL LAB HEMATOLOGY METHOD 06/05/2025 6:35 PM EDT [facility] RDW 17.9(H) 11.5 - 14.5 % LAB HEMATOLOGY METHOD 06/05/2025 6:35 PM EDT [facility] MPV 11.2 8.8 - 12.5 fL LAB HEMATOLOGY METHOD 06/05/2025 6:35 PM EDT [facility] nRBC 0.0 <=0.0 per 100 WBCs LAB HEMATOLOGY METHOD 06/05/2025 6:35 PM EDT [facility] Differential Type Automated LAB HEMATOLOGY METHOD 06/05/2025 6:35 PM EDT [facility] Neutrophils % 64 % LAB HEMATOLOGY METHOD 06/05/2025 6:35 PM EDT [facility] Lymphocytes % 17 % LAB HEMATOLOGY METHOD 06/05/2025 6:35 PM EDT [facility] Monocytes % 15 % LAB HEMATOLOGY METHOD 06/05/2025 6:35 PM EDT [facility] Eosinophils % 3 % LAB HEMATOLOGY METHOD 06/05/2025 6:35 PM EDT [facility] Basophils % 1 % LAB HEMATOLOGY METHOD 06/05/2025 6:35 PM EDT [facility] Immature Granulocytes % 0 % LAB HEMATOLOGY METHOD 06/05/2025 6:35 PM EDT [facility] Neutrophils Absolute 2.71 1.60 - 6.10 10*3/uL LAB HEMATOLOGY METHOD 06/05/2025 6:35 PM EDT [facility] Lymphocytes Absolute 0.71(L) 1.20 - 3.90 10*3/uL LAB HEMATOLOGY METHOD 06/05/2025 6:35 PM EDT [facility] Monocytes Absolute 0.65 0.30 - 0.90 10*3/uL LAB HEMATOLOGY METHOD 06/05/2025 6:35 PM EDT [facility] Eosinophils Absolute 0.11 0.00 - 0.50 10*3/uL LAB HEMATOLOGY METHOD 06/05/2025 6:35 PM EDT [facility] Basophils Absolute 0.03 0.00 - 0.10 10*3/uL LAB HEMATOLOGY METHOD 06/05/2025 6:35 PM EDT [facility] Immature Granulocytes Absolute 0.01 0.00 - 0.06 10*3/uL LAB HEMATOLOGY METHOD 06/05/2025 6:35 PM EDT [facility] Blood Venous blood specimen / Unknown Venipuncture / Unknown 06/05/2025 3:52 PM EDT 06/05/2025 3:52 PM EDT Narrative [facility] - 06/05/2025 6:35 PM EDT Therapeutic decision making should be based on absolute values, rather than percentages. us Alvarez Zimmer MD LAB BLOOD ORDERABLES Final Res ult Performing Organization Address [facility]/ZIP Co de Phone Number [facility] [address] [place] [address] * (ABNORMAL) Prealbumin, Plasma (06/05/2025 3:52 PM EDT) Prealbumin, Plasma 6.6(L) 20.0 - 41.0 mg/dL 06/05/2025 6:41 PM EDT [facility] Blood Venous blood specimen / Unknown Venipuncture / Unknown 06/05/2025 3:52 PM EDT 06/05/2025 3:52 PM EDT us Alvarez Zimmer MD LAB BLOOD ORDERABLES Final Res ult Performing Organization Address [facility]/ZIP Co de Phone Number [facility] [address] [place] [address] * (ABNORMAL) Iron, Plasma (06/05/2025 3:52 PM EDT) Iron, Plasma 165(H) 30 - 160 ug/dL 06/05/2025 6:41 PM EDT [facility] Blood Venous blood specimen / Unknown Venipuncture / Unknown 06/05/2025 3:52 PM EDT 06/05/2025 3:52 PM EDT us Alvarez Zimmer MD LAB BLOOD ORDERABLES [place] [address] * (ABNORMAL) Ferritin, Serum (06/05/2025 3:52 PM EDT) Ferritin, Serum 280(H) 13 - 150 ng/mL 06/05/2025 6:53 PM EDT [facility] Blood Venous blood specimen / Unknown Venipuncture / Unknown 06/05/2025 3:52 PM EDT 06/05/2025 3:52 PM EDT us Alvarez Zimmer MD LAB BLOOD ORDERABLES Final Res ult Performing Organization Address [facility] [place] [address] * (ABNORMAL) Conjugated Bilirubin, Plasma (06/05/2025 3:52 PM EDT) Conjugated Bilirubin, Plasma 1.5(H) <=0.3 mg/dL 06/05/2025 6:41 PM EDT [facility] Blood Venous blood specimen / Unknown Venipuncture / Unknown 06/05/2025 3:52 PM EDT 06/05/2025 3:52 PM EDT us Alvarez Zimmer MD LAB BLOOD ORDERABLES Final Res ult Performing Organization Address [facility] [place] [address] * Urine Subramanian Panel (05/31/2025 6:43 PM EDT) Only the most recent of3 resultswithin the time period is included. Extra Reflex urine culture not indicated 05/31/2025 9:01 PM EDT [facility] Urine Urine specimen obtained by clean catch procedure / Unknown Non-blood Collection / Unknown 05/31/2025 6:43 PM EDT 05/31/2025 7:14 PM EDT us Irina Campos MD LAB URINE ORDERABLES Final Re sult Performing Organization Address [facility] [place] [address] * Urinalysis Microscopic Examination (05/31/2025 6:43 PM EDT) Only the most recent of3 resultswithin the time period is included. Urine Urine specimen obtained by clean catch procedure / Unknown Non-blood Collection / Unknown 05/31/2025 6:43 PM EDT 05/31/2025 6:46 PM EDT us Irina Campos MD LAB URINE ORDERABLES Final Re sult [facility] [address] [place] [address] * (ABNORMAL) Urinalysis with reflex microscopic (Culture NOT Included) (05/31/2025 6:43 PM EDT) Only the most recent of3 resultswithin the time period is included. Color, Urine Dark Yellow LAB URINALYSIS - AUTOMATED METHOD 05/31/2025 7:27 PM EDT [facility] Clarity, Urine Clear LAB URINALYSIS - AUTOMATED METHOD 05/31/2025 7:27 PM EDT [facility] Spec [place], Urine 1.029 1.005 - 1.030 LAB URINALYSIS - AUTOMATED METHOD 05/31/2025 7:27 PM EDT [facility] pH, Urine <=5.0(L) 5.0 - 8.0 LAB URINALYSIS - AUTOMATED METHOD 05/31/2025 7:27 PM EDT [facility] Protein, Urine Trace(A) Negative mg/dL LAB URINALYSIS - AUTOMATED METHOD 05/31/2025 7:27 PM EDT [facility] Glucose, Urine Negative Negative mg/dL LAB URINALYSIS - AUTOMATED METHOD 05/31/2025 7:27 PM EDT [facility] Ketones, Urine Trace(A) Negative mg/dL LAB URINALYSIS - AUTOMATED METHOD 05/31/2025 7:27 PM EDT [facility] Blood, Urine Small(A) Negative LAB URINALYSIS - AUTOMATED METHOD 05/31/2025 7:27 PM EDT [facility] Bilirubin, Urine Small(A) Negative LAB URINALYSIS - AUTOMATED METHOD 05/31/2025 7:27 PM EDT [facility] Urobilinogen, Urine 1.0 0.2 to 1.0 mg/dL LAB URINALYSIS - AUTOMATED METHOD 05/31/2025 7:27 PM EDT [facility] Leukocytes, Urine Trace(A) Negative LAB URINALYSIS - AUTOMATED METHOD 05/31/2025 7:27 PM EDT [facility] Nitrite, Urine Negative Negative LAB URINALYSIS - AUTOMATED METHOD 05/31/2025 7:27 PM EDT [facility] RBC, Urine 4 - 10(A) 0 to 3 /HPF LAB URINALYSIS - AUTOMATED METHOD 05/31/2025 7:27 PM EDT [facility] Comment:This result was prev iously suppressed from the chart. WBC, Urine 0 - 5 0 to 5 /HPF LAB URINALYSIS - AUTOMATED METHOD 05/31/2025 7:27 PM EDT [facility] Comment:This result was prev iously suppressed from the chart. Squamous Epithelial Cells 3 - 5 0 to 5 /HPF LAB URINALYSIS - AUTOMATED METHOD 05/31/2025 7:27 PM EDT [facility] Comment:This result was prev iously suppressed from the chart. Hyaline Casts 3 - 5 0 to 5 /LPF LAB URINALYSIS - AUTOMATED METHOD 05/31/2025 7:27 PM EDT [facility] Comment:This result was prev iously suppressed from the chart. Bacteria, Urine Negative Negative LAB URINALYSIS - AUTOMATED METHOD 05/31/2025 7:27 PM EDT [facility] Comment:This result was prev iously suppressed from the chart. Urine Urine specimen obtained by clean catch procedure / Unknown Non-blood Collection / Unknown 05/31/2025 6:43 PM EDT 05/31/2025 6:46 PM EDT Irina Campos MD LAB URINE ORDERABLES Final Re sult [facility] [address] [place] [address] * (ABNORMAL) Magnesium (05/31/2025 4:01 PM EDT) Magnesium, Plasma 1.3(L) 1.9 - 2.4 mg/dL 05/31/2025 4:26 PM EDT [facility] Blood Venous blood specimen / Unknown Venipuncture / Unknown 05/31/2025 4:01 PM EDT 05/31/2025 4:06 PM EDT Torrie Turner MD LAB BLOOD ORDERABLES Final Resu lt [facility] [address] [place] [address] * Lipase (05/31/2025 4:01 PM EDT) [facility] Lipase, Plasma 62 19 - 63 U/L 05/31/2025 4:26 PM EDT [facility] Blood Venous blood specimen / Unknown Venipuncture / Unknown 05/31/2025 4:01 PM EDT 05/31/2025 4:06 PM EDT Torrie Turner MD LAB BLOOD ORDERABLES Final Resu lt Performing Organization Address City/[facility]/ZIP Co de Phone Number [facility] [address] [place] [address] * (ABNORMAL) Blood gas panel, venous (05/31/2025 4:01 PM EDT) Only the most recent of2 resultswithin the time period is included. [facility] pH, Venous 7.41 7.32 - 7.43 LAB HEMATOLOGY METHOD 05/31/2025 4:07 PM EDT [facility] pCO2, Venous 35(L) 37 - 52 mmHg LAB HEMATOLOGY METHOD 05/31/2025 4:07 PM EDT [facility] pO2, Venous 28 25 - 40 mmHg LAB HEMATOLOGY METHOD 05/31/2025 4:07 PM EDT [facility] SO2, Measured, Venous 45(L) 65 - 80 % LAB HEMATOLOGY METHOD 05/31/2025 4:07 PM EDT [facility] Base Excess, Venous -2.0 -2.0 - 3.0 mmol/L LAB HEMATOLOGY METHOD 05/31/2025 4:07 PM EDT [facility] Bicarbonate, Calculated, Venous 22 22 - 26 mmol/L LAB HEMATOLOGY METHOD 05/31/2025 4:07 PM EDT [facility] Hematocrit, Whole Blood 27.5(L) 34.0 - 45.0 % LAB HEMATOLOGY METHOD 05/31/2025 4:07 PM EDT [facility] Sodium, Whole Blood 142 136 - 145 mmol/L LAB HEMATOLOGY METHOD 05/31/2025 4:07 PM EDT [facility] Potassium, Whole Blood 4.2 3.6 - 4.9 mmol/L LAB HEMATOLOGY METHOD 05/31/2025 4:07 PM EDT [facility] Chloride, Whole Blood 110(H) 97 - 107 mmol/L LAB HEMATOLOGY METHOD 05/31/2025 4:07 PM EDT [facility] Glucose, Whole Blood 183(H) 74 - 99 mg/dL LAB HEMATOLOGY METHOD 05/31/2025 4:07 PM EDT [facility] Lactate, Venous, Whole Blood 1.8 0.5 - 2.2 mmol/L LAB HEMATOLOGY METHOD 05/31/2025 4:07 PM EDT [facility] Ionized Calcium, Whole Blood 4.4(L) 4.6 - 5.1 mg/dL LAB HEMATOLOGY METHOD 05/31/2025 4:07 PM EDT [facility] Blood Venous blood specimen / Unknown Venipuncture / Unknown 05/31/2025 4:01 PM EDT 05/31/2025 4:06 PM EDT Torrie Turner MD LAB BLOOD ORDERABLES Final Resu lt Performing Organization Address City/[facility]/ZIP Co de Phone Number [facility] [address] [place] [address] * Ammonia (05/31/2025 4:01 PM EDT) Only the most recent of2 resultswithin the time period is included. Ammonia 39 11 - 51 umol/L 05/31/2025 4:55 PM EDT [facility] Blood Venous blood specimen / Unknown Venipuncture / Unknown 05/31/2025 4:01 PM EDT 05/31/2025 4:11 PM EDT Torrie Turner MD LAB BLOOD ORDERABLES Final Resu lt [facility] [address] [place] [address] * ECG Adult (05/31/2025 3:43 PM EDT) Only the most recent of2 resultswithin the time period is included. EKG DIAGNOSIS CLASS Abnormal MUSE ECG Ventricular Rate 67 BPM MUSE ECG Atrial Rate 67 BPM MUSE ECG NE Interval 116 ms MUSE ECG QRSD Interval 88 ms MUSE ECG QT Interval 466 ms MUSE ECG QTC Interval 492 ms MUSE ECG P [place] 40 degrees MUSE ECG R [place] -36 degrees MUSE ECG T Wave [place] -2 degrees MUSE ECG Diagnosis Normal sinus rhythm MUSE ECG Diagnosis Left axis deviation MUSE ECG Diagnosis Cannot rule out Anterior infarct , age undetermined MUSE ECG Diagnosis MUSE ECG Diagnosis MUSE ECG Diagnosis Confirmed by Cecelia Leal ([id number]) on 06/02/2025 7:31:57 PM MUSE ECG 05/31/2025 3:43 PM EDT 06/02/2025 7:31 PM EDT us Irina Campos MD ECG ORDERABLES Final Result MUSE ECG * US Chest (05/30/2025 11:15 [...] on 05/30/2025 7:47 PM us Marianna Gordon MINUTE CLERK FOR BASIC TRAFFIC IMG US PROCEDURES Final Resu lt * (ABNORMAL) Insulin, random (05/30/2025 9:59 AM EDT) Insulin 32.7(H) 3.0 - 16.0 uU/mL 05/30/2025 12:00 PM EDT [facility] Blood Venous blood specimen / Unknown Venipuncture / Unknown 05/30/2025 9:59 AM EDT 05/30/2025 10:16 AM EDT us Enmanuel Wetzel MD LAB BLOOD ORDERABLES Final Resu lt [facility] [address] [place] [address] * (ABNORMAL) Basic metabolic panel (05/30/2025 9:59 AM EDT) Glucose, Plasma 199(H) 74 - 99 mg/dL 05/30/2025 10:49 AM EDT [facility] BUN, Plasma 29(H) 8 - 23 mg/dL 05/30/2025 10:49 AM EDT [facility] Creatinine, Plasma 1.44(H) 0.60 - 1.10 mg/dL 05/30/2025 10:49 AM EDT [facility] BUN/Creatinine Ratio 20 05/30/2025 10:49 AM EDT [facility] Sodium, Plasma 140 136 - 145 mmol/L 05/30/2025 10:49 AM EDT [facility] Potassium, Plasma 5.0(H) 3.6 - 4.9 mmol/L 05/30/2025 10:49 AM EDT [facility] Chloride, Plasma 108(H) 97 - 107 mmol/L 05/30/2025 10:49 AM EDT [facility] CO2, Plasma 19(L) 22 - 29 mmol/L 05/30/2025 10:49 AM EDT [facility] Anion Gap 13 6 - 16 mmol/L 05/30/2025 10:49 AM EDT [facility] Total Calcium, Plasma 8.6(L) 8.9 - 10.2 mg/dL 05/30/2025 10:49 AM EDT [facility] eGFRcr 41.2 mL/min/1.7 3m*2 05/30/2025 10:49 AM EDT [facility] Comment:Reported eGFRcr in m L/min/1.73m2 is based the CKD-EPI 2020 equation that does not use a race coefficient. Blood Venous blood specimen / Unknown Venipuncture / Unknown 05/30/2025 9:59 AM EDT 05/30/2025 10:16 AM EDT us Enmanuel Wetzel MD LAB BLOOD ORDERABLES Final Resu lt [facility] [address] [place] [address] * (ABNORMAL) Hemoglobin A1c (05/23/2025 9:27 AM EDT) Hemoglobin A1c 7.3(H) <5.7 % 05/23/2025 11:03 AM EDT [facility] Blood Venous blood specimen / Unknown Venipuncture / Unknown 05/23/2025 9:27 AM EDT 05/23/2025 9:45 AM EDT Narrative [facility] - 05/23/2025 11:03 AM EDT HA1C Interpretive Data: Diagnosis of Diabetes: Diabetic > or = 6.5% Pre-diabetic 5.7 to 6.4% Non-diabetic < or = 5.6% Glycemic Targets for Type I and Type II Diabetics: Non- Adults <7.0% Adults <6.0% Children and Adolescents <7.5% Source: [place] [employer]. Standards of medical care in diabetes,2017. Diabetes Care.2017:40 (suppl 1):S1-S135. us Enmanuel Wetzel MD LAB BLOOD ORDERABLES Final Resu lt [facility] [address] [place] [address] * POCT glucose meter (05/10/2025 3:29 PM EDT) POCT Glucose 95 74 - 99 mg/dL [...] 05/10/2025 3:31 PM EDT [facility] Machining Technician ID Abdoul Cuello 05/10/20 3:31 PM EDT [facility] Device ID [id number] 05/10/2025 3:31 PM EDT [facility] Specimen Type POC Capillary 05/10/2025 3:31 PM EDT [facility] Blood Capillary blood specimen / Unknown 05/10/2025 3:29 PM EDT 05/10/2025 3:31 PM EDT us Abdoul Cuello LAB POINT OF CARE TE ST DOCKED DEVICE UNSOLICITED RESULTS Final Result [facility] [address] [place] [address] * CT Abdomen Pelvis w IV Contrast [...] are consistent with and integrated into the [place] Association for the Study of Liver Diseases [...] are consistent with and integrated into the [place] Associationfor the Study of Liver Diseases (AASLD) [...] 4.0 <10.0 ng/mL 05/07/2025 10:04 AM EDT [facility] Blood Venous blood specimen / Unknown Venipuncture / Unknown 05/07/2025 8:58 AM EDT 05/07/2025 9:20 AM EDT Narrative [facility] - 05/07/2025 10:04 AM EDT Performed by Se[employer] electrochemiluminescent immunoassay which is traceable to the 1st AFP IRP WHO Reference standard 72/255. Results obtained with different test methods or kits cannot be used interchangeably. Gerson Aorra MD LAB BLOOD ORDERABLES Final Resul t [facility] [address] [place] [address] * (ABNORMAL) Troponin T, High Sensitivity, 2 Hour, Plasma (05/03/2025 4:23 PM EDT) Troponin T, High Sensitivity, 2 Hour 31(H) <14 ng/L 05/03/2025 4:47 PM EDT [facility] Troponin Delta 1 <10 ng/L 05/03/2025 4:47 PM EDT [facility] Troponin Delta Interpretation Not Significant 05/03/2025 4:47 PM EDT [facility] Comment:Not Significant. No acute change in troponin observed between the baseline and 2 hour samples. Blood Venous blood specimen / Unknown Venipuncture / Unknown 05/03/2025 4:23 PM EDT 05/03/2025 4:25 PM EDT Luis Alfredo Jon MD LAB BLOOD ORDERABLES Fi nal Result Performing Organization Address City/[facility]/ZIP Co de Phone Number [facility] [address] [place] [address] * (ABNORMAL) Troponin now and 120 min (05/03/2025 1:50 PM EDT) Troponin T, High Sensitivity, 0 Hour 30(H) <14 ng/L 05/03/2025 2:20 PM EDT [facility] Blood Venous blood specimen / Unknown Venipuncture / Unknown 05/03/2025 1:50 PM EDT 05/03/2025 1:57 PM EDT Luis Alfredo Jon MD LAB BLOOD ORDERABLES Fi nal Result Performing Organization Address City/[facility]/ZIP Co de Phone Number [facility] [address] [place] [address] * APTT (05/03/2025 1:50 PM EDT) aPTT 35 25 - 35 sec 05/03/2025 2:09 PM EDT [facility] Blood Venous blood specimen / Unknown Venipuncture / Unknown 05/03/2025 1:50 PM EDT 05/03/2025 1:56 PM EDT Luis Alfredo Jon MD LAB BLOOD ORDERABLES Fi nal Result Performing Organization Address City/[facility]/ZIP Co de Phone Number [facility] [address] [place] [address] * (ABNORMAL) Ionized calcium, serum (04/04/2025 8:03 AM EDT) Pathologist [facility] Ionized Calcium, Serum 4.5(L) 4.6 - 5.3 mg/dL LAB HEMATOLOGY METHOD 04/04/2025 8:51 AM EDT [facility] Blood Venous blood specimen / Unknown Venipuncture / Unknown 04/04/2025 8:03 AM EDT 04/04/2025 8:15 AM EDT Ar Dominique MD LAB BLOOD ORDERABLES Final Res ult [facility] [address] [place] [address] * Vitamin D 25 Hydroxy (04/04/2025 8:03 AM EDT) [facility] Vitamin D 25 Hydroxy 23.6 20.0 - 80.0 ng/mL 04/04/2025 11:13 AM EDT [facility] Blood Venous blood specimen / Unknown Venipuncture / Unknown 04/04/2025 8:03 AM EDT 04/04/2025 8:15 AM EDT Narrative [facility] - 04/04/2025 11:13 AM EDT Testing performed on [employer], standardized against NIST SRM 2972. When testing [...] MD LAB BLOOD ORDERABLES Final Res ult [facility] [address] [place] [address] * PTH Intact Total (04/04/2025 8:03 AM EDT) Pathologist [facility] PTH Intact Total 53 9 - 77 pg/mL 04/04/2025 10:07 AM EDT [facility] Blood Venous blood specimen / Unknown Venipuncture / Unknown 04/04/2025 8:03 AM EDT 04/04/2025 8:12 AM EDT Narrative [facility] - 04/04/2025 10:07 AM EDT Assay performed by immunoassay at the [facility]. Performed on [employer] Puncher chemiluminescent immunoassay, tractable to the World Health Organization's first international standard for PTH from the [facility], Code 79/500. Results obtained from different test methods or kits cannot be used interchangeably. us Ar Dominique MD LAB BLOOD ORDERABLES Final Res ult Performing Organization Address City/[facility]/ZIP Co de Phone Number [facility] [address] [place] [address] * Glucose - Pleural Right (03/28/2025 9:30 AM EDT) Glucose, Fluid 245 mg/dL 03/28/2025 12:28 PM EDT [facility] Pleural Fluid Structure of right pleural cavity / Unknown Non-blood Collection / Unknown 03/28/2025 9:30 AM EDT 03/28/2025 10:38 AM EDT Narrative [facility] - 03/28/2025 12:28 PM EDT Pleural [...] effusion, tuberculosis, malignancy, empyema, and/or rheumatoid disease. us Maria Dolores Ontiveros APRN, DNP LAB BODY FLUIDS AND STOO LS ORDERABLES Final Result Performing Organization Address City/[facility]/ZIP Co de Phone Number [facility] [address] [place] [address] * Albumin - Pleural Right (03/28/2025 9:30 AM EDT) Albumin, Pleural Fluid 0.8 g/dL 03/28/2025 12:28 PM EDT [facility] Pleural Fluid Structure of right pleural cavity / Unknown Non-blood Collection / Unknown 03/28/2025 9:30 AM EDT 03/28/2025 10:38 AM EDT Narrative [facility] - 03/28/2025 12:28 PM EDT REPORTING RESULTS Reference Values: No established reference interval. Results should be interpreted in comparison to the concentration in blood and in conjunction with the clinical context. This test was developed and its performance characteristics determined by [facility]. The U.S. Food and Drug Administration has not approved or cleared this test; however, FDA clearance or approval is not currently required for clinical use. The results are not intended to be used as the sole means for clinical diagnosis or patient management decisions. us Maria Dolores Ontiveros APRN, DNP LAB BODY FLUIDS AND STOO LS ORDERABLES Final Result [facility] [address] [place] [address] * (ABNORMAL) pH, pleural fluid (03/28/2025 9:30 AM EDT) pH, Pleural Fluid 7.52(L) 7.60 - 7.66 LAB HEMATOLOGY METHOD 03/28/2025 10:54 AM EDT [facility] Pleural Fluid Pleural fluid specimen / Unknown Non-blood Collection / Unknown 03/28/2025 9:30 AM EDT 03/28/2025 10:40 AM EDT Narrative [facility] - 03/28/2025 10:54 AM EDT Delay [...] and its performance characteristics determined by the [facility]. Pleural pH is measured by [...] FLUIDS AND STOO LS ORDERABLES Final Result [facility] [address] [place] [address] * Dexa Bone Density (11/07/2024 9:09 AM [...] forearm, right forearm was performed using a [employer] A Dual-energy X-ray Absorptiometry (DXA) scanner (software [...] left forearm, right forearm wasperformed using a [employer] A Dual-energy X-ray Absorptiometry (DXA)scanner (software [...] on 11/07/2024 9:34 AM Gerson Arora MD [facility] DXA PROCEDURES Final Result * HIV 1 & 2 Antibody/Antigen Screen (10/22/2024 11:44 AM EST) HIV 1 & 2 Antibody/Antigen Screen Non Reactive Non Reactive 10/22/2024 1:15 PM EST [facility] Comment:Screening for HIV 1 & 2 antibodies, and P24 antigen is NONREACTIVE. No confirmatory testing is required. Blood Venous blood specimen / Unknown Venipuncture / Unknown 10/22/2024 11:44 AM EST 10/22/2024 12:30 PM EST us Yeni Lebron APRN, ANGELLA LAB BLOOD ORDERABLES Final Result Performing Organization Address City/[facility]/ZIP Co de Phone Number [facility] [address] [place] [address] * Hepatitis C Antibody (10/22/2024 11:44 AM EST) Hepatitis C Antibody Negative Negative 10/22/2024 1:00 PM EST [facility] Blood Venous blood specimen / Unknown Venipuncture / Unknown 10/22/2024 11:44 AM EST 10/22/2024 12:17 PM EST us Yeni Lebron APRN, ANGELLA LAB BLOOD ORDERABLES Final Result Performing Organization Address [facility] Co de Phone Number [facility] [address] [place] [address] * Colonoscopy External Result (01/14/2023) Anatomical Region Laterality Modality Endoscopy Narrative 01/14/2023 Ordered by an unspecified provider. us External Provider GI PROCEDURE ORDERABLES Final Result * Cytology (04/12/2003 12:00 AM EDT) 04/12/2003 04/16/2003 Narrative [facility] - 04/26/2003 7:51 AM EDT [facility] MR #: [id number] [facility] [place] [id number] 1960 (Age: 42) FW Collect Date: 04/12/2003 00:00 Receipt Date: 04/16/2003 00:00 Page 1 DEPARTMENT OF PATHOLOGY AND LABORATORY MEDICINE CYTOPATHOLOGY REPORT Email: [email or web address] ATTENDING MD/Practitioner: Rosaline Cooper MD Service: PAT [...] results is suggested (please call Microbiology at [phone] for results). CLINICAL INFORMATION: Menstrual History: Cyclic Date of Last Menstrual Period: 11/23 Contraceptive History: control pills Other Clinical Conditions: Per computer, patient has a history of previous abnormal pap SPECIMEN DESCRIPTION: A: THIN PREP (CERVICAL/VAGINAL) THIN PREP PROCESS CELLULAR ENHANCEMENT ICD: 795.00 ABNORMAL GLANDULAR PAPANICOLAOU SMEAR OF CERVIX F: A; THIN SCRN 20378, THIN SCRN 34431 <CR>, [place] DX [address] SNOMED CODES: A; [id number] In cases where a pathologist has signed out the report, the service has been rendered in part by a resident. The signing pathologist has performed and is responsible for the reported pathologic evaluation. us Historical Provider MD LAB PATHOLOGY ORDERABLES Final Result Performing Organization Address City/State/[facility] Co de Phone Number [facility] from Last 3 Months or Most Recently Relevant to Health Maintenance Insurance MEDICAID-[employer] MEDICAID-[employer] Member Subscriber Plan / Payer (Ef fective 2024-) Name:Monika Zimmer Relation to Subscriber:Self Name:Monika Zimmer Payer ID:Not on file Group ID:Not on file Type:Medicaid Address: [address] MEDICARE [place] Member Subscriber Plan / Payer (Ef fective 2024-) Name:Monika Zimmer Relation to Subscriber:Self Name:Monika Zimmer Payer ID:Not on file Group ID:Not on file Type:Medicaid Address: [address] [id number] [place] Member Subscriber Plan / Payer (Ef fective 2024-Present) Name:Monika Zimmer Relation to Subscriber:Self Name:Monika Zimmer Payer ID:Not on file Group ID:Not on file Type:Medicaid Address: [address] MEDICARE Advance Directives * Full Code (Latest Code Status on File) Date Activated Date Inactivated Comments 01/08/2025 1:35 PM 01/14/2025 5:43 PM Question Answer Comments Patient has decision-making capacity? No Healthcare Surrogate: Parent(s) of the patient * Full Code Date Activated Date Inactivated Comments 10/22/2024 9:16 AM 11/03/2024 2:22 PM Question Answer Comments Patient has decision-making capacity? Yes Care Teams Coiled Coil Inspector Relationship Specialty Start Date End Date Alvarez Zimmer MD [address] [place] [phone] PCP - General Family Medicine 12/07/24 Lea Fernando [address] [facility] [address] [place] [phone] Cellophane Worker Endocrinology 08/29/24 Rachel Ray APRN [address] [facility] [address] [place] [phone] Nurse Practitioner Gastroenterology 09/24/24 Tamera Isabel LPN VALUE-BASED TRANSFORMATION PROGRAM Licensed Practical Nurse 05/29/25
--- OUTSIDE RECORDS SUMMARY | 2025-06-24 09:48 | XMS_ITS | Encounter Summary ---
Author Organization Healthcare Address [address] [place] [address] Care Team Providers Care Wood Type Cutter Name Role Phone Lea Fernando Unavailable [phone] Rachel Ray LAPPING MACHINE TENDER Unavailable [phone] Alvarez Zimmer MD Primary Care Provider [phone] Tamera Isabel LPN Unavailable Unavailabl e Encounter [...] 01/10/2025 How often do you attend [facility] or [facility]? Patient unable to answer [...] in the past 12 m [facility], were you homeless or living in a [facility] (including now)? No 03/06/2025 Humiliation, Afraid, Rape, [...] often do you attend [facility] or [facility] services? Never 05/29/2025 Do you belong to [...] 06/05/2025 [facility] - Occupational Stress Questionnaire [...] in the past 12 m [facility], were you homeless or living in a m[facility] (including now)? No 05/29/2025 CAGE ASSESSMENT Answer [...] drink first t kennedy in the morning (EYE-GEOSPATIAL IMAGE ANALYST) to steady your nerves or to [...] way Not at all 06/11/2025 10:59 AM Suhial Josue Patient Health Questionnaire -9 Score 6 06/11/2025 10:59 AM EDSuhail Doherty * If you checked off any problems on this questionnaire so far, Question Answer Date of Assessment Author How difficult have these problems made it for you to do your work, take care of things at home, or get along with other people? Somewhat difficult 06/11/2025 10:59 AM EDSuhail Doherty * How difficult have these problems made it for you to do your work, take care of things at home, or get along with other people? Answer Date of Assessment Author Somewhat difficult 06/11/2025 10:59 AM EDSuhail Jackson documented as of this encounter Plan of Treatment Upcoming Encounters Date Type Department Care Team ([facility] st Contact Info) Description 06/27/2025 9:30 AM EDT Appointment [facility] Interventional Radiology [address] [place] [address] 06/27/2025 10:30 AM EDT Appointment [facility] Interventional Radiology [address] [place] [address] 07/04/2025 10:30 AM EDT Appointment [facility] Interventional Radiology [address] [place] [address] 07/04/2025 11:30 AM EDT Appointment [facility] Interventional Radiology [address] [place] [address] 07/09/2025 2:40 PM EDT Office Visit [facility] [place] [facility]abolism [address], [address] [place] [address] Ar Dominique MD [address] [facility] [place] [address] 07/11/2025 10:30 AM EDT Appointment [facility] Interventional Radiology [address] [place] [address] 07/11/2025 11:30 AM EDT Appointment [facility] Inter[facility] Radiology [address] [place] [address] 07/18/2025 10:30 AM EDT Appointment [facility] Interventional Radiology [address] [place] [address] 07/18/2025 11:30 AM EDT Appointment [facility] Inter[facility] Radiology [address] [place] [address] 07/25/2025 10:30 AM EDT Appointment [facility] Interventional Radiology [address] [place] [address] 07/25/2025 11:30 AM EDT Appointment [facility] Interventional Radiology [address] [place] [address] 07/31/2025 9:00 AM EDT Office Visit [address] [place] [address] Alvarez Zimmer MD [address] [place] [address] 08/20/2025 9:30 AM EDT Clinical Support [facility] [address] [place] [address] 08/20/2025 10:30 AM EDT Social Work [facility] [address] [place] [address] [place] [address] 08/20/2025 11:00 AM EDT Office Visit [facility] [address] [place] [address] Jude Duque MD [address] [place] [address] 10/30/2025 1:20 PM EST Office Visit [facility] Endocrinology [address] [place] [address] Sharif Moreno, DPNicole [address] [place] [address] documented as of this encounter [...] documented as of this encounter Care Teams Wood Type Cutter Relationship Specialty Start Date End Date Alvarez Zimmer MD [address] [place] [address] PCP - General Family Medicine 12/07/24 Lea Fernando [address] [place] [address] Post Doctoral Researcher Endocrinology 08/29/24 Rachel Ray APRN [address] [place] [address] Nurse Practitioner Gastroenterology 09/24/24 Tamera Isabel LPN VALUE-BASED TRANSFORMATION PROGRAM Licensed Practical Nurse 05/29/25 documented as of this encounter
--- OUTSIDE RECORDS SUMMARY | 2025-06-24 09:48 | XMS_ITS | Encounter Summary ---
Author Organization Healthcare Address [address] [place] [address] Care Team Providers Care Candy Maker Helper Name Role Phone Lea Fernando Unavailable [phone] Rachel Ray CRAS Unavailable [phone] Alvarez Zimmer MD Primary Care Provider [phone] Tamera Isabel LPN Unavailable Unavailabl e Encounter [...] week 01/10/2025 How often do you attend [facility] or jain services? Patient unable to answer 01/10/2025 Do you belong to any clubs o r organizations such as caodaism groups, unions, fraternal or athletic groups, or [...] the past 12 m [facility], were you homeless or living in [...] often do you attend chur ch or jain services? Never 05/29/2025 Do you belong to any clubs o r organizations such as caodaism groups, unions, fraternal or athletic groups, or [...] Never 06/05/2025 [facility] - Occupational Stress Questionnaire [...] the past 12 m [facility], were you homeless or living in [...] first t kennedy in the morning (EYE-HEALTH SCREENER) to steady your nerves or to get [...] Appointment [facility] Interventional Radiology [address] [place] [address] 06/27/2025 10:30 AM EDT Appointment [facility] Interventional Radiology [address] [place] [address] 07/04/2025 10:30 AM EDT Appointment [facility] Interventional Radiology [address] [place] [address] 07/04/2025 11:30 AM EDT Appointment [facility] Interventional Radiology [address] [place] [address] 07/09/2025 2:40 PM EDT Office Visit [facility] Bone & Mineral Metabolism [address], [address] [place] [address] Ar Dominiuqe MD [address] [place] [address] 07/11/2025 10:30 AM EDT Appointment [facility] Interventional Radiology [address] [place] [address] 07/11/2025 11:30 AM EDT Appointment [facility] Interventional Radiology [address] [place] [address] 07/18/2025 10:30 AM EDT Appointment [facility] Interventional Radiology [address] [place] [address] 07/18/2025 11:30 AM EDT Appointment [facility] Interventional Radiology [address] [place] [address] 07/25/2025 10:30 AM EDT Appointment [facility] Interventional Radiology [address] [place] [address] 07/25/2025 11:30 AM EDT Appointment [facility] Interventional Radiology [address] [place] [address] 07/31/2025 9:00 AM EDT Office Visit [address] [address] Alvarez Zimmer MD [address] [place] [address] 08/20/2025 9:30 AM EDT Clinical Support [facility] [place] [address] [place] [address] 08/20/2025 10:30 AM EDT Social Work [facility] [place] [address] [place] [address] [place] [address] 08/20/2025 11:00 AM EDT Office Visit [facility] [place] [address] [place] [address] Jude Duque MD [address] [place] [address] 10/30/2025 1:20 PM EST Office Visit [facility] Endocrinology [address] [place] [address] Sharif Moreno, ROSY [address] [place] [address] documented as of this encounter [...] documented as of this encounter Care Teams Candy Maker Helper Relationship Specialty Start Date End Date Alvarez Zimmer MD [address] [place] [phone] PCP - General Family Medicine 12/07/24 Lea Fernando [address] [facility] [address] [place] [address] Academic Affairs Coordinator Endocrinology 08/29/24 Rachel Ray APRN [address] [facility] [address] [place] [address] Nurse Practitioner Gastroenterology 09/24/24 Tamera Isabel LPN VALUE-BASED TRANSFORMATION PROGRAM Licensed Practical Nurse 05/29/25 documented as of this encounter
--- OUTSIDE RECORDS SUMMARY | 2025-06-24 09:48 | XMS_ITS | Encounter Summary ---
Author Organization [facility] Address [address] [place] [address] Care Team Providers Care Doubler Helper Name Role Phone Lea Fernando Unavailable [phone] Rachel Ray TURNER MACHINE OPERATOR Unavailable [phone] Alvarez Zimmer MD Primary Care Provider [phone] Tamera Isabel KENO WRITER Unavailable Unavailabl e Encounter Details Date Type Department Care Team (Late st Contact Info) Description 06/10/2025 Results Follow-Up [facility] [address] [place] [address] Alvarez Zimmer MD [address] [place] [address] Social History Tobacco Use Types [...] week 01/10/2025 How often do you attend [facility] or synagogue services? Patient unable to answer 01/10/2025 Do [...] How often do you attend chur or synagogue services? Never 05/29/2025 Do you belong to [...] more drinks on one occasion? Never 06/05/2025 [facility] - Occupational Stress Questionnaire Answer [...] t kennedy in the morning (EYE-LOSS PREVENTION CONSULTANT) to steady your nerves or to [...] Upcoming Encounters Date Type Department Care Team ([facility] st Contact Info) Description 06/27/2025 9:30 AM EDT Appointment [facility] Interventional Radiology [address] [place] [address] 06/27/2025 10:30 AM EDT Appointment [facility] Interventional Radiology [address] [place] [address] 07/04/2025 10:30 AM EDT Appointment [facility] Interventional Radiology [address] [place] [address] 07/04/2025 11:30 AM EDT Appointment [facility] Interventional Radiology [address] [place] [address] 07/09/2025 2:40 PM EDT Office Visit [facility] Bone & Mineral Metabolism [address] [facility] [address], [address] [place] [address] Ar Dominique MD [address] [place] [address] 07/11/2025 10:30 AM EDT Appointment [facility] Interventional Radiology [address] [place] [address] 07/11/2025 11:30 AM EDT Appointment [facility] Interventional Radiology [address] [place] [address] 07/18/2025 10:30 AM EDT Appointment [facility] Interventional Radiology [address] [place] [address] 07/18/2025 11:30 AM EDT Appointment [facility] Interventional Radiology [address] [place] [address] 07/25/2025 10:30 AM EDT Appointment [facility] Interventional Radiology [address] [place] [address] 07/25/2025 11:30 AM EDT Appointment [facility] Interventional Radiology [address] [place] [address] 07/31/2025 9:00 AM EDT Office Visit [facility] [address] [place] [address] Alvarez Zimmer MD [address] [place] [address] 08/20/2025 9:30 AM EDT Clinical Support [facility] [place] [address] [place] [address] 08/20/2025 10:30 AM EDT Social Work [facility] [place] [address] [place] [address] Deysi Ortega [place], [place] [phone] 08/20/2025 11:00 AM EDT Office Visit [facility] [place] [address] [place] [address] Jude Duque MD [address] [place] [address] 10/30/2025 1:20 PM EST Office Visit [facility] Endocrinology [address] [place] [phone] Sharif Moreno, DPNicole [address] [place] [address] documented as of this encounter Visit Diagnoses [...] documented as of this encounter Care Teams Doubler Helper Relationship Specialty Start Date End Date Alvarez Zimmer MD [address] [place] [address] PCP - General Family Medicine 12/07/24 Lea Fernando [address] [facility] [address] [place] [address] [facility] 08/29/24 Rachel Ray APRN [address] [place] [address] Nurse Practitioner Gastroenterology 09/24/24 Tamera Isabel LPN VALUE-BASED TRANSFORMATION PROGRAM Licensed Practical Nurse 05/29/25 documented as of this encounter
--- OUTSIDE RECORDS SUMMARY | 2025-06-24 09:48 | XMS_ITS | Encounter Summary ---
Author Organization Healthcare Address [address] [place] [address] Care Team Providers Care Engineering Job Titles Name Role Phone Lea Fernando Unavailable [phone] Rachel Ray MANAGER OF DISTRIBUTION Unavailable [phone] Alvarez Zimmer MD Primary Care Provider [phone] Tamera Isabel LPN Unavailable Unavailabl e Encounter [...] How often do you attend [facility] or mandaeism services? Patient unable to answer 01/10/2025 Do [...] in a fdc (including now)? No 03/06/2025 Humiliation, Afraid, Rape, [...] often do you attend chur ch or mandaeism services? Never 05/29/2025 Do you belong to [...] more drinks on one occasion? Never 06/05/2025 [facility] - [...] living in a fdc (including now)? No 05/29/2025 CAGE ASSESSMENT Answer [...] drink first t kennedy in the morning (EYE-BARGEMAN) to steady your nerves or to get [...] [facility] A Interventional Radiology [address] [place] [address] 06/27/2025 10:30 AM EDT Appointment [facility] Interventional Radiology [address] [place] [address] 07/04/2025 10:30 AM EDT Appointment [facility] Interventional Radiology [address] [place] [address] 07/04/2025 11:30 AM EDT Appointment [facility] Interventional Radiology [address] [place] [address] 07/09/2025 2:40 PM EDT Office Visit [facility] Bone & Mineral Metabolism [address], [address] [place] [address] Ar Dominique MD [address] [place] [address] 07/11/2025 10:30 AM EDT Appointment [facility] Interventional Radiology [address] [place] [address] 07/11/2025 11:30 AM EDT Appointment [facility] Interventional Radiology [address] [place] [address] 07/18/2025 10:30 AM EDT Appointment [facility] Interventional Radiology [address] [place] [address] 07/18/2025 11:30 AM EDT Appointment [facility] Interventional Radiology [address] [place] [address] 07/25/2025 10:30 AM EDT Appointment [facility] Interventional Radiology [address] [place] [address] 07/25/2025 11:30 AM EDT Appointment [facility] Interventional Radiology [address] [place] [address] 07/31/2025 9:00 AM EDT Office Visit [address] [address] Alvarez Zimmer MD [address] [place] [address] 08/20/2025 9:30 AM EDT Clinical Support [facility] [place] [address] [place] [address] 08/20/2025 10:30 AM EDT Social Work [facility] [place] [address] [place] [address] [place] [address] 08/20/2025 11:00 AM EDT Office Visit [facility] [place] [address] [place] [address] Jude Duque MD [address] [place] [address] 10/30/2025 1:20 PM EST Office Visit [facility] Endocrinology [address] [place] [address] Sharif Moreno, DPNicole [address] [place] [address] documented as of this encounter [...] as of this encounter Care Teams Engineering Job Titles Relationship Specialty Start Date End Date Alvarez Zimmer MD [address] [place] [phone] PCP - General Family Medicine 12/07/24 Lea Fernando [address] [place] [facility] [address] [place] [address] Product Demonstrator Endocrinology 08/29/24 Rachel Ray APRN [address] [facility] [address] [place] [address] Nurse Practitioner Gastroenterology 09/24/24 Tamera Isabel LPN VALUE-BASED TRANSFORMATION PROGRAM Licensed Practical Nurse 05/29/25 documented as of this encounter
--- OUTSIDE RECORDS SUMMARY | 2025-06-24 09:48 | XMS_ITS | Encounter Summary ---
Author Organization [employer] ([place], [place], [place], [place]) Address [address] [place] [address] Care Team Providers Care Gas Cutter Name Role Phone Taina Lyles APRN Primary Care Provider [phone] Reason for Visit * Reason Comments New Med Request Encounter Details Date Type Department Care Team (Late st Contact Info) Description 12/10/2024 [facility] Primary Care - [address] [place] [address] Anali Benavidez, SENIOR SYSTEMS DEVELOPER [address] [address] Social History Tobacco Use Types [...] Date Beau rded Speak language other than [place] at home Not on file 12/01/2023 Want [...] on filedocumented in this encounter Care Teams Gas Cutter Relationship Specialty Start Date End Date Taina Lyles, SENIOR SYSTEMS DEVELOPER [address] [place] [address] PCP - General Nurse Practitioner 06/15/23 documented as of this encounter
--- OUTSIDE RECORDS SUMMARY | 2025-06-24 09:49 | XMS_ITS | Encounter Summary ---
Author Organization [employer] ([place], [place], [place], [place]) Address [address] [place] [address] Care Team Providers Care Signaling Project Engineer Name Role Phone Taina Lyles BACK ROLL LATHE OPERATOR Primary Care Provider Encounter Details Date Type Department Care Team (Late st Contact Info) Description 07/02/2021 Transcribed Document [facility] [address] [place] [address] ProviderWilliam MD [address] [place], [place] [phone] Social History Tobacco Use Types Packs/Day Years [...] Reyes MD - 07/02/2021 10:50 AM CDT [place] [id number] MONIKA ZIMMERYE :1960 Visit Time:07/01/2021 Your Visit [...] from ER. Where: [address] [place] [phone] (1) Follow Up with CORINA ABAD [...] range between ( 1.0 and 7.0 ) [place] #: 0.66 K/uL -- Normal range between ( 0.24 and 0.82 ) [place] #: 0.49 K/uL -- Normal range between ( 0.04 and 0.54 ) [place] %: 8.2 % -- Normal range between [...] safe for you. General instructions ??? Take xmeh-lip-lvoesrc and prescription medicines only as told by [...] provider. Document Revised: 05/10/2019 Document Reviewed: 05/10/2019 [employer] Patient Education ?? 2020 [employer]. Aspirin and Your Heart Aspirin is a [...] The two forms of aspirin are: ? Ywg-gjqoazk-ntgptp.This type of aspirin does not have a coating and is absorbed quickly. This type of aspirin also comes in a chewable form. ? Enteric-coated. This type of aspirin has a coating that releases the medicine very slowly. Enteric-coated aspirin might cause less stomach upset than ghx-qimjdjf-geeiob aspirin. This type of aspirin should not [...] provider. Document Revised: 09/07/2018 Document Reviewed: 09/07/2018 [employer] Patient Education ?? 2020 [employer]. Acute Pain, Adult Acute pain is a [...] these instructions at home: Medicines ??? Take albc-okm-jbeqcys and prescription medicines only as told by [...] is severe. ? Do not take other ahqd-bnu-kuomooi pain medicines in addition to prescription pain [...] and fresh fruits and vegetables. ? Take zkev-nly-xsxruec or prescription medicines. ? Limit foods that [...] you are no longer ill. ??? Take loco-azf-mytlxcw and prescription medicines only as told by [...] provider. Document Revised: 03/24/2020 Document Reviewed: 03/24/2020 [employer] Patient Education ?? 2020 [employer]. Coronary Angiogram A coronary angiogram is an [...] including vitamins, herbs, eye drops, creams, and jczu-sfj-muwufpq medicines. ??? Any problems you or family [...] do not normally take it. ??? Taking zpct-gwq-shymdqe medicines, vitamins, herbs, and supplements. General instructions [...] provider. Document Revised: 05/29/2020 Document Reviewed: 05/29/2020 [employer] plugin Patient Education ?? 2020 [employer]. Nonspecific Chest Pain, Pediatric Chest pain [...] instructions at home: General instructions ??? Give pkmm-grt-dtbevdr and prescription medicines only as told by [...] and is usually not dangerous. ??? Give zcgt-tff-sfvdqfh and prescription medicines only as told by [...] provider. Document Revised: 06/08/2019 Document Reviewed: 06/08/2019 [employer] plugin Patient Education ?? 2020 [employer]. Nonspecific Chest Pain Chest pain can [...] these instructions at home: Medicines ??? Take mxkf-idz-offuown and prescription medicines only as told by [...] Eating a heart-healthy diet. A diet and livestock nutrition territory manager (dietitian) can help you to learn healthy [...] provider. Document Revised: 05/10/2019 Document Reviewed: 05/10/2019 [employer] Patient Education ?? 2020 [employer]. Emergency Awareness and Preventative Care STROKE [...] Assistance with quitting is available by contacting 8-447-QKAUNOW. This is a free resource providing counseling, [...] was given the opportunity to ask questions. Patient/Pharmacist In Charge Name: Patient/Pharmacist In Charge Signature: Relationship to Patient: Clinician/Hospital Pharmacist In Charge Signature: Please Provide a Telephone Number Where You Can Be Reached: Is it Permissible To Leave a Message? Date: Electronically signed by Luigi, [facility] Conversion Reworker Cerner at 03/07/2023 9:48 AM CDT documented in this encounter Plan of Treatment Not on file documented as of this encounter Visit Diagnoses Not on filedocumented in this encounter Care Teams Signaling Project Engineer Relationship Specialty Start Date End Date Taina Lyles, BACK ROLL LATHE OPERATOR [address] [place] [address] PCP - General Nurse Practitioner 06/15/23 documented as of this encounter
--- OUTSIDE RECORDS SUMMARY | 2025-06-24 09:49 | XMS_ITS | Encounter Summary ---
Author Organization Healthcare Address [address] [place] [address] Care Team Providers Care Steam Tank Operator Name Role Phone Lea Fernando Unavailable [phone] Rachel Ray COOLER WORKER Unavailable [phone] Alvarez Zimmer MD Primary Care Provider [phone] Tamera Isabel LPN Unavailable Unavailabl e Encounter [...] attend [facility] or jew services? Patient unable to answer [...] any time in the past 12 m [facility], were you homeless or living in [...] you attend chur ch or jew services? Never 05/29/2025 Do you belong to [...] one occasion? Never 06/05/2025 [facility] Health - Occupational Stress Questionnaire Answer [...] any time in the past 12 m [facility], were you homeless or living in [...] drink first t kennedy in the morning (EYE-COAT JOINER LOCKSTITCH) to steady your nerves or to get [...] Appointment [facility] Interventional Radiology [address] [place] [address] 06/27/2025 10:30 AM EDT Appointment [facility] Interventional Radiology [address] [place] [address] 07/04/2025 10:30 AM EDT Appointment [facility] Interventional Radiology [address] [place] [address] 07/04/2025 11:30 AM EDT Appointment [facility] Interventional Radiology [address] [place] [address] 07/09/2025 2:40 PM EDT Office Visit [facility] Bone & Mineral Metabolism [address], [address] [place] [address] Ar Dominique MD [address] [place] [address] 07/11/2025 10:30 AM EDT Appointment [facility] Interventional Radiology [address] [place] [address] 07/11/2025 11:30 AM EDT Appointment [facility] Interventional Radiology [address] [place] [address] 07/18/2025 10:30 AM EDT Appointment [facility] Interventional Radiology [address] [place] [address] 07/18/2025 11:30 AM EDT Appointment [facility] Interventional Radiology [address] [place] [address] 07/25/2025 10:30 AM EDT Appointment [facility] Interventional Radiology [address] [place] [address] 07/25/2025 11:30 AM EDT Appointment [facility] Interventional Radiology [address] [place] [address] 07/31/2025 9:00 AM EDT Office Visit [address] [address] Alvarez Zimmer MD [address] [place] [address] 08/20/2025 9:30 AM EDT Clinical Support [facility] [place] [address] [place] [address] 08/20/2025 10:30 AM EDT Social Work [facility] [place] [address] [place] [address] [place] [address] 08/20/2025 11:00 AM EDT Office Visit [facility] [place] [address] [place] [address] Jude Duque MD [address] [place] [address] 10/30/2025 1:20 PM EST Office Visit [facility] Endocrinology [address] [place] [address] Sharif Moreno, DPNicole [address] [place] [address] documented as of this encounter [...] documented as of this encounter Care Teams Steam Tank Operator Relationship Specialty Start Date End Date Alvarez Zimmer MD [address] [place] [phone] PCP - General Family Medicine 12/07/24 Lea Fernando [address] [facility] [address] [place] [address] Burner Operator Endocrinology 08/29/24 Rachel Ray APRN [address] [facility] [address] [place] [address] Nurse Practitioner Gastroenterology 09/24/24 Tamera Isabel LPN VALUE-BASED TRANSFORMATION PROGRAM Licensed Practical Nurse 05/29/25 documented as of this encounter
--- OUTSIDE RECORDS SUMMARY | 2025-06-24 09:49 | XMS_ITS | Encounter Summary ---
Author Organization Healthcare Address [address] [place] [address] Care Team Providers Care Psychometrician Name Role Phone Lea Fernando Unavailable [phone] Rachel Ray GLASS ETCHER HELPER Unavailable [phone] Alvarez Zimmer MD Primary Care Provider [phone] Tamera Isabel LPN Unavailable Unavailabl e Reason for Referral * Imaging (Routine) - Pending Review Specialty Diagnoses / Procedures Referred By Contac t Referred To Contact Radiology Diagnoses Other ascites Procedures US Guided Abdominal Paracentesis Marianna Gordon APRN [address] [place] [address] Phone: tel: fax: Referral ID Status Reason Start Date Expiration Date V isits Requested Visits Authorized [id number] Pending Review 06/14/2025 12/14/2026 1 1 * Imaging (Routine) - Pending Review Specialty Diagnoses / Procedures Referred By Contac t Referred To Contact Radiology Diagnoses Shortness of breath Pleural effusion Procedures US Guided Thoracentesis Marianna Gordon APRN [address] [place] [address] Phone: tel: fax: Referral ID Status Reason Start Date Expiration Date V isits Requested Visits Authorized [id number] Pending Review 06/14/2025 12/14/2026 1 1 * Imaging (Routine) - Pending Review Specialty Diagnoses / Procedures Referred By Contac t Referred To Contact Radiology Diagnoses Other ascites Procedures US Guided Abdominal Paracentesis Marainna Gordon APRN [address] [place] [address] Phone: tel: fax: Referral ID Status Reason Start Date Expiration Date V isits Requested Visits Authorized [id number] Pending Review 06/14/2025 12/14/2026 1 1 * Imaging (Routine) - Pending Review Specialty Diagnoses / Procedures Referred By Contac t Referred To Contact Radiology Diagnoses Shortness of breath Pleural effusion Procedures US Guided Thoracentesis Marianna Gordon APRN [address] [place] [address] Phone: tel: fax: Referral ID Status Reason Start Date Expiration Date V isits Requested Visits Authorized [id number] Pending Review 06/14/2025 12/14/2026 1 1 * Imaging (Routine) - Authorized Specialty Diagnoses / Procedures Referred By Contac t Referred To Contact Radiology Diagnoses Other ascites Procedures US Guided Abdominal Paracentesis Marianna Gordon APRN [address] [place] [address] Phone: tel: fax: Referral ID Status Reason Start Date Expiration Date V isits Requested Visits Authorized [id number] Authorized 06/14/2025 12/14/2026 1 1 * Imaging (Routine) - Authorized Specialty Diagnoses / Procedures Referred By Contac t Referred To Contact Radiology Diagnoses Shortness of breath Pleural effusion Procedures US Guided Thoracentesis Marianna Gordon APRN [address] [place] [address] Phone: tel: fax: Referral ID Status Reason Start Date Expiration Date V isits Requested Visits Authorized [id number] Authorized 06/14/2025 12/14/2026 1 1 Encounter Details Date Type Department Care Team (Late st Contact Info) Description 06/14/2025 Orders Only [facility] Interventional Radiology [address] [place] [address] Marianna Gordon APRN [address] [place] [address] Shortness of breath (Primary Dx); [...] 01/10/2025 How often do you attend [facility] or cheondoism services? Patient unable to answer [...] in the past [address] [facility], were you homeless or living in a mcfp (including now)? No 03/06/2025 Humiliation, Afraid, Rape, [...] you attend chur ch or cheondoism services? Never 05/29/2025 Do you [...] drinks on one occasion? Never 06/05/2025 [facility] [...] in the past [address] [facility], were you homeless or living in [...] drink first t kennedy in the morning (EYE-DRY JANITOR) to steady your nerves or to get [...] Appointment [facility] Interventional Radiology [address] [place] [address] 06/27/2025 10:30 AM EDT Appointment [facility] Inter[facility] Radiology [address] [place] [address] 07/04/2025 10:30 AM EDT Appointment [facility] Inter[facility] Radiology [address] [place] [address] 07/04/2025 11:30 AM EDT Appointment [facility] Interventional Radiology [address] [place] [address] 07/09/2025 2:40 PM EDT Office Visit [facility] & Mineral Metabolism [address], [address] [place] [address] Ar Dominique MD [address] [place] [address] 07/11/2025 10:30 AM EDT Appointment [facility] Interventional Radiology [address] [place] [address] 07/11/2025 11:30 AM EDT Appointment [facility] Inter[facility] Radiology [address] [place] [address] 07/18/2025 10:30 AM EDT Appointment [facility] Radiology [address] [place] [address] 07/18/2025 11:30 AM EDT Appointment [facility] Radiology [address] [place] [address] 07/25/2025 10:30 AM EDT Appointment [facility]iology [address] [place] [address] 07/25/2025 11:30 AM EDT Appointment [facility] Interventional Radiology [address] [place] [address] 07/31/2025 9:00 AM EDT Office Visit [facility] [address] [place] [address] Alvarez Zimmer MD [address] [place] [address] 08/20/2025 9:30 AM EDT Clinical Support [facility] [address] [place] [address] 08/20/2025 10:30 AM EDT Social Work [facility] [address] [place] [address] Deysi Ortega [place], [place] [id number] 08/20/2025 11:00 AM EDT Office Visit [facility] [address] [place] [address] Jude Duque MD [address] [place] [address] 10/30/2025 1:20 PM EST Office Visit [facility] Endocrinology [address] [place] [address] Sharif Moreno, DPNicole [address] [place] [address] Scheduled Orders Name Type Priority [...] documented as of this encounter Care Teams Psychometrician Relationship Specialty Start Date End Date Alvarez Zimmer MD [address] [place] [address] PCP - General Family Medicine 12/07/24 Lea Fernando [address] [facility] [address] [place] [address] Author Agent Endocrinology 08/29/24 Rachel Ray, GLASS ETCHER HELPER [address] [facility] [address] [place] [address] Nurse Practitioner Gastroenterology 09/24/24 Tamera Isabel LPN VALUE-BASED TRANSFORMATION PROGRAM Licensed Practical Nurse 05/29/25 documented as of this encounter
--- OUTSIDE RECORDS SUMMARY | 2025-06-24 09:49 | XMS_ITS | Encounter Summary ---
Author Organization [employer] ([place], [place], [place], [place]) Address [address] [place] [address] Care Team Providers Care Drywall Mechanic Name Role Phone Taina Lyles BEREAVEMENT COORDINATOR Primary Care Provider [phone] Encounter Details Date Type Department Care Team (Late st Contact Info) Description 07/02/2021 Transcribed Document [facility] [place] [facility] [place] [address] ProviderWilliam MD [address] [place], [place] [address] Social History Tobacco Use Types Packs/Day Years [...] list: All Problems Anxiety / SNOMED CT 4287944984 / Confirmed Arthritis / SNOMED CT 0695238 / Confirmed ADD (attention deficit disorder) / SNOMED CT 0684264302 / Confirmed right carpal tunnel / SNOMED CT 48377631 / Confirmed Chronic depression / SNOMED CT 308704321 / Confirmed Diabetes / SNOMED CT 530232861 / Confirmed GERD (gastroesophageal reflux disease) / SNOMED CT 729293303 / Confirmed Stress incontinence / SNOMED CT 220037121 / Confirmed History of recurrent UTIs / SNOMED CT 010325249 / Confirmed H/O syncope / SNOMED CT 7594034309 / Confirmed Hyperlipidemia / SNOMED CT 48600278 / Confirmed bilateral knee pain / SNOMED CT 66917607 / Confirmed Right tennis elbow / SNOMED CT 4544949773 / Confirmed recent diagnosis Renal insufficiency / SNOMED CT 2658924728 / Confirmed RLS (restless legs syndrome) / SNOMED CT 43570009 / Confirmed sleep apnea with Cpap / SNOMED CT 163822163 / Confirmed, Active Problems (16) ADD (attention [...] EDT Height Source Stated Height Entry Format Coleman Height/Length, MALTESE (ft) 5 ft Height/Length MALTESE 6 Inch CLINICALHEIGHT 167.64 cm [place] Body Weight 58.88 kg Weight Source, ED Standing scale Weight Entry Format Coleman Weight [place] lb 203 lb CLINICALWEIGHT 92.27 kg Body [...] patient had drank orange juice and eaten [place]'s breakfast -Continue home meds, defer diabetes management [...] on filedocumented in this encounter Care Teams Drywall Mechanic Relationship Specialty Start Date End Date Taina Lyles, BEREAVEMENT COORDINATOR [address] [place] [address] PCP - General Nurse Practitioner 06/15/23 documented as of this encounter
--- OUTSIDE RECORDS SUMMARY | 2025-06-24 09:49 | XMS_ITS | Encounter Summary ---
Author Organization Healthcare Address [address] [place] [address] Care Team Providers Care Product Delivery Specialist Name Role Phone Lea Fernando Unavailable [phone] Rachel Ray SENIOR HUMAN RESOURCES REPRESENTATIVE Unavailable [phone] Alvarez Zimmer MD Primary Care Provider [phone] Tamera Isabel CAMP COUNSELOR Unavailable Unavailabl e Encounter Details Date Type Department Care Team (Late st Contact Info) Description 06/14/2025 Telephone [facility] [address] [place] [address] Alvarez Zimmer MD [address] [place] [address] Social History Tobacco Use Types [...] you attend [facility] or amish services? Patient unable to answer [...] any time in the past 12 m [facility], were you homeless or living in a snf (including now)? No 03/06/2025 Humiliation, Afraid, Rape, [...] How often do you attend chur or amish services? Never 05/29/2025 Do you belong to [...] more drinks on one occasion? Never 06/05/2025 [facility] - Occupational Stress Questionnaire Answer [...] any time in the past 12 m [facility], were you homeless or living [...] drink first t kennedy in the morning (EYE-CYTOLOGY TEACHER) to steady your nerves or to get [...] but I suspect the son is best assembly person. * Telephone Encounter - Christy Buckley - 06/14/2025 1:55 PM EDT Skye with [facility] called questioning if Dr. Zimmer will be following the patient? Who is the best assembly person, son or sister? documented in this encounter Plan of Treatment Upcoming Encounters Date Type Department Care Team ([facility] st Contact Info) Description 06/27/2025 9:30 AM EDT Appointment [facility] Interventional Radiology [address] [place] [address] 06/27/2025 10:30 AM EDT Appointment [facility] Interventional Radiology [address] [place] [address] 07/04/2025 10:30 AM EDT Appointment [facility] Interventional Radiology [address] [place] [address] 07/04/2025 11:30 AM EDT Appointment [facility] Interventional Radiology [address] [place] [address] 07/09/2025 2:40 PM EDT Office Visit [facility] Bone & Mineral Metabolism [address], [address] [place] [address] Ar Dominique MD [address] [facility] [address] [place] [address] 07/11/2025 10:30 AM EDT Appointment [facility] Interventional Radiology [address] [place] [address] 07/11/2025 11:30 AM EDT Appointment [facility] Interventional Radiology [address] [place] [address] 07/18/2025 10:30 AM EDT Appointment [facility] Inter[facility] Radiology [address] [place] [address] 07/18/2025 11:30 AM EDT Appointment [facility] Inter[facility] Radiology [address] [place] [address] 07/25/2025 10:30 AM EDT Appointment [facility] Interventional Radiology [address] [place] [address] 07/25/2025 11:30 AM EDT Appointment [facility] Interventional Radiology [address] [place] [address] 07/31/2025 9:00 AM EDT Office Visit [facility] [address] [place] [address] Alvarez Zimmer MD [address] [place] [address] 08/20/2025 9:30 AM EDT Clinical Support [facility] [place] [address] [address] 08/20/2025 10:30 AM EDT Social Work [facility] [place] [address] [place] [address] Deysi Ortega [place], [place] [phone] 08/20/2025 11:00 AM EDT Office Visit [facility] [place] [address] [place] [address] Jude Duque MD [address] [place] [address] [place] [address] 10/30/2025 1:20 PM EST Office Visit [facility] Endocrinology [address] [place] [address] Sharif Moreno, DPNicole [address] [place] [address] [place] [address] documented as of this encounter [...] documented as of this encounter Care Teams Product Delivery Specialist Relationship Specialty Start Date End Date Alvarez Zimmer MD [address] [place] [address] PCP - General Family Medicine 12/07/24 Lea Fernando [address] [place] [address] Salicylic Acid Blender Endocrinology 08/29/24 Rachel Ray, SENIOR HUMAN RESOURCES REPRESENTATIVE [address] [place] [address] [place] [address] Nurse Practitioner Gastroenterology 09/24/24 Tamera Isabel LPN VALUE-BASED TRANSFORMATION PROGRAM Licensed Practical Nurse 05/29/25 documented as of this encounter
--- OUTSIDE RECORDS SUMMARY | 2025-06-24 09:49 | XMS_ITS | Encounter Summary ---
Author Organization [employer] ([place]) Address [address] [place] [address] Care Team Providers Care Director Communications Name Role Phone Taina Lyles ADRI Primary Care Provider [phone] Encounter Details Date Type Department Care Team (Late st Contact Info) Description 07/02/2021 Transcribed Document [facility] [place] Family Medicine [address] [place] [address] ProviderWilliam MD [address] [place], [place] [address] Social History Tobacco Use Types Packs/Day Years [...] - 07/02/2021 12:33 EDT Electronically signed by [facility], [facility] Conversion Applications Packager Cerner at 03/07/2023 9:50 AM CDT documented in this encounter Plan of Treatment Not on file documented as of this encounter Visit Diagnoses Not on filedocumented in this encounter Care Teams Director Communications Relationship Specialty Start Date End Date Taina Lyles, REGULATED PROGRAM MANAGER [address] [place] [address] PCP - General Nurse Practitioner 06/15/23 documented as of this encounter
--- OUTSIDE RECORDS SUMMARY | 2025-06-24 09:49 | XMS_ITS | Encounter Summary ---
Author Organization [facility] Address [address] [place] [address] Care Team Providers Care Truss Maker Name Role Phone Lea Fernando Unavailable [phone] Rachel Ray LACEWORKER Unavailable [phone] Alvarez Zimmer MD Primary Care Provider [phone] Tamera Isabel LPN Unavailable Unavailabl e Reason for Referral * Imaging (Routine) - Authorized Specialty Diagnoses / Procedures Referred By Contac t Referred To Contact Radiology Diagnoses Other ascites Alcoholic cirrhosis of liver with ascites (CMS/HCC) Procedures US Guided Abdominal Paracentesis Marianna Gordon APRN [address] [place] [address] Phone: tel: fax: Referral ID Status Reason Start Date Expiration Date V isits Requested Visits Authorized [id number] Authorized 06/14/2025 12/14/2026 1 1 * Imaging (Routine) - Authorized Specialty Diagnoses / Procedures Referred By Contac t Referred To Contact Radiology Diagnoses Pleural effusion Shortness of breath Procedures US Guided Thoracentesis Marianna Gordon APRN [address] [place] [address] Phone: tel: fax: Referral ID Status Reason Start Date Expiration Date V isits Requested Visits Authorized [id number] Authorized 06/14/2025 12/14/2026 1 1 Encounter Details Date Type Department Care Team (Late st Contact Info) Description 06/14/2025 Orders Only [facility] Interventional Radiology [address] [place] [address] Marianna Gordon APRN [address] [place] [address] Other ascites (Primary Dx); Pleural effusion; Shortness [...] 01/10/2025 How often do you attend [facility] or orthodox services? Patient unable to answer [...] week 05/29/2025 How often do you attend [facility] or orthodox services? Never 05/29/2025 Do you belong [...] on one occasion? Never 06/05/2025 [facility] of Occupat ional [...] drink first t kennedy in the morning (EYE-FILAMENT SHAPER) to steady your nerves or to get rid of a hangover? 0 10/22/2024 CAGE Questionnaire Score 0 024 Utilities Answer Date Recorded In the past 12 months has th [employer] electric, gas, oil, or water company threatened [...] Appointment [facility] Interventional Radiology [address] [place] [address] 06/27/2025 10:30 AM EDT Appointment [facility] Interventional Radiology [address] [place] [address] 07/04/2025 10:30 AM EDT Appointment [facility] Interventional Radiology [address] [place] [address] 07/04/2025 11:30 AM EDT Appointment [facility] Interventional Radiology [address] [place] [address] 07/09/2025 2:40 PM EDT Office Visit [facility] Bone & Mineral Metabolism [address] [facility], [address] [place] [address] Ar Dominique MD [address] [place] [address] 07/11/2025 10:30 AM EDT Appointment [facility] Interventional Radiology [address] [place] [address] 07/11/2025 11:30 AM EDT Appointment [facility] Interventional Radiology [address] [place] [address] 07/18/2025 10:30 AM EDT Appointment [facility] Inter[facility] Radiology [address] [place] [address] 07/18/2025 11:30 AM EDT Appointment [facility] Inter[facility] Radiology [address] [place] [address] 07/25/2025 10:30 AM EDT Appointment [facility] Inter[facility] Radiology [address] [place] [address] 07/25/2025 11:30 AM EDT Appointment [facility] Interventional Radiology [address] [place] [address] 07/31/2025 9:00 AM EDT Office Visit [facility] [address] [place] [address] Alvarez Zimmer MD [address] [place] [address] 08/20/2025 9:30 AM EDT Clinical Support [facility] [place] [address] [place] [address] 08/20/2025 10:30 AM EDT Social Work [facility] [place] [address] [place] [address] Deysi Ortega [place], [place] [id number] 08/20/2025 11:00 AM EDT Office Visit [facility] [address] [place] [address] Jude Duque MD [address] [place] [address] 10/30/2025 1:20 PM EST Office Visit [facility] Endocrinology [address] [place] [address] Sharif Moreno, ROSY [address] [place] [address] Scheduled Orders Name Type Priority [...] documented as of this encounter Care Teams Truss Maker Relationship Specialty Start Date End Date Alvarez Zimmer MD [address] [place] [address] PCP - General Family Medicine 12/07/24 Lea Fernando [address] [facility] [address] [place] [address] Supervisor Home Energy Consultant Endocrinology 08/29/24 Rachel Ray APRN [address] [facility] [address] [place] [address] Nurse Practitioner Gastroenterology 09/24/24 Tamera Isabel LPN VALUE-BASED TRANSFORMATION PROGRAM Licensed Practical Nurse 05/29/25 documented as of this encounter
--- OUTSIDE RECORDS SUMMARY | 2025-06-24 09:49 | XMS_ITS | Encounter Summary ---
Author Organization [employer] ([place], [place], [place], [place]) Address [address] [place] [address] Care Team Providers Care Manager Distribution Name Role Phone Taina Lyles ADRI Primary Care Provider [phone] Encounter Details Date Type Department Care Team (Late st Contact Info) Description 07/02/2021 Transcribed Document [facility] [place] Family Medicine [address] [place] [address] ProviderWilliam MD [address] [place], [place] [address] Social History Tobacco Use Types Packs/Day Years [...] 07/02/2021 2:30 EDT Electronically signed by [facility] Conversion [place] [employer]man Cerner at 03/07/2023 9:50 AM CDT documented in this encounter Plan of Treatment Not on file documented as of this encounter Visit Diagnoses Not on filedocumented in this encounter Care Teams Manager Distribution Relationship Specialty Start Date End Date Taina Lyles, INSTITUTIONAL NUTRITION CONSULTANT [address] [place] [address] PCP - General Nurse Practitioner 06/15/23 documented as of this encounter
--- OUTSIDE RECORDS SUMMARY | 2025-06-24 09:49 | XMS_ITS | Encounter Summary ---
Author Organization [facility] Address [address] 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 Patient unable to answer [...] [facility] living [...] more drinks on one occasion? Never 06/05/2025 [facility] Answer Date [...] time in the [facility] were you [facility] or living [...] drink first t kennedy in the morning (EYE-PHYSICAL EDUCATION DEPARTMENT CHAIR) to steady your nerves or to get [...] Upcoming Encounters Date Type Department Care Team ([facility] Contact Info) Description 06/27/2025 9:30 AM EDT Appointment [facility] Inter[facility] Radiology [address] [place] [address] 06/27/2025 10:30 AM EDT Appointment [facility]iology [address] [place] [address] 07/04/2025 10:30 AM EDT Appointment [facility] [address] [place] [address] 07/04/2025 11:30 AM EDT Appointment [facility] Inter[facility] Radiology [address] [place] [address] 07/09/2025 2:40 PM EDT Office Visit [facility] [place] [facility] [address] [facility], [address] [place] [address] Ar Dominique MD [address] [place] [address] 07/11/2025 10:30 AM EDT Appointment [facility]iology [address] [place] [address] 07/11/2025 11:30 AM EDT Appointment [facility] [address] [place] [address] 07/18/2025 10:30 AM EDT Appointment [facility] [address] [place] [address] 07/18/2025 11:30 AM EDT Appointment [facility] [address] [place] [address] 07/25/2025 10:30 AM EDT Appointment [facility] [address] [place] [address] 07/25/2025 11:30 AM EDT Appointment [facility] [address] [place] [address] 07/31/2025 9:00 AM EDT Office Visit [facility] [address] [place] [address] Alvarez Zimmer MD [address] [place] [address] 08/20/2025 9:30 AM EDT Clinical Support [facility] [address] [place] [address] 08/20/2025 10:30 AM EDT Social Work [facility] [place] [address] [place] [address] [place] [address] 08/20/2025 11:00 AM EDT Office Visit [facility] [address] [place] [address] Jude Duque MD [address] [place] [address] 10/30/2025 1:20 PM EST Office Visit [facility] Endocrinology [address] [place] [address] Sharif Moreno, DPNicole [address] [place] [address] Scheduled Referrals Name Type Priority [...] as of this encounter Care Teams Veneer Clipper Relationship Specialty Start Date End Date Alvarez Zimmer MD [address] [place] [phone] PCP - General Family Medicine 12/07/24 Lea Fernando [address] [place] [address] Bakery [employer] Deli Sales Manager Endocrinology 08/29/24 Rachel Ray, OUTSOLE HANDLER [address] [place] [address] Nurse Practitioner Gastroenterology 09/24/24 Tamera Isabel LPN VALUE-BASED TRANSFORMATION PROGRAM Licensed Practical Nurse 05/29/25 documented as of this encounter
--- OUTSIDE RECORDS SUMMARY | 2025-06-24 09:49 | XMS_ITS | Encounter Summary ---
Author Organization Healthcare Address [address] [place] [address] Care Team Providers Care Radiology Receptionist Name Role Phone Lea Fernando Unavailable [phone] Rachel Ray CHEMISTRY DEPARTMENT CHAIR Unavailable [phone] Alvarez Zimmer MD Primary Care Provider [phone] Encounter Details Date Type Department Care Team [...] Recorded Patient Health Questionnaire-2 Score 1 05/07/2025 [facility] [...] any time in the past 12 m [facility], were you homeless or living [...] drink first t kennedy in the morning (EYE-ARCHAEOLOGIST) to steady your nerves or to get [...] Appointment [facility] Inter[facility] Radiology [address] [place] [address] 06/27/2025 10:30 AM EDT Appointment [facility] [address] [place] [address] 07/04/2025 10:30 AM EDT Appointment [facility] [address] [place] [address] 07/04/2025 11:30 AM EDT Appointment [facility] [address] [place] [address] 07/09/2025 2:40 PM EDT Office Visit [facility] [place] [facility] [address] [facility], [address] [place] [address] Ar Dominique MD [address] [facility] [address] [place] [address] 07/11/2025 10:30 AM EDT Appointment [facility] [address] [place] [address] 07/11/2025 11:30 AM EDT Appointment [facility] [address] [place] [address] 07/18/2025 10:30 AM EDT Appointment [facility] [address] [place] [address] 07/18/2025 11:30 AM EDT Appointment [facility] [address] [place] [address] 07/25/2025 10:30 AM EDT Appointment [facility] [address] [place] [address] 07/25/2025 11:30 AM EDT Appointment [facility] [address] [place] [address] 07/31/2025 9:00 AM EDT Office Visit [facility] [address] [place] [address] Alvarez Zimmer MD [address] [place] [address] 08/20/2025 9:30 AM EDT Clinical Support [facility] [place] [address] [place] [address] 08/20/2025 10:30 AM EDT Social Work [facility] [place] [address] [place] [address] Deysi Ortega [place], [place] [id number] 08/20/2025 11:00 AM EDT Office Visit [facility] [place] [address] [place] [address] Jude Duque MD [address] [place] [address] 10/30/2025 1:20 PM EST [facility] Visit [facility] Endocrinology [address] [place] [address] Sharif Moreno, DPNicole [address] [place] [address] documented as of this encounter [...] documented as of this encounter Care Teams Radiology Receptionist Relationship Specialty Start Date End Date Alvarez Zimmer MD [address] [place] [address] PCP - General Family Medicine 12/07/24 Lea Fernando [address] [place] [address] Transport Pilot Endocrinology 08/29/24 Rachel Ray, CHEMISTRY DEPARTMENT CHAIR [address] [place] [address] Nurse Practitioner Gastroenterology 09/24/24 documented as of this encounter
--- OUTSIDE RECORDS SUMMARY | 2025-06-24 09:49 | XMS_ITS | Encounter Summary ---
Author Organization Healthcare Address [address] [place] [address] Care Team Providers Care Drive In Waiter/Waitress Name Role Phone Lea Fernando Unavailable [phone] Rachel Ray SUPERVISOR TITLE Unavailable [phone] Alvarez Zimmer MD Primary Care Provider [phone] Tamera Isabel COMMERCIAL LINES ASSISTANT Unavailable Unavailabl e Encounter Details Date Type Department Care Team (Late st Contact Info) Description 06/14/2025 Telephone [facility] Medicine [address] [place] [address] Alvarez Zimmer MD [address] [place] [address] Social History Tobacco Use Types [...] often do you attend [facility] or scientology services? Patient unable to answer [...] How often do you attend chur or scientology services? Never 05/29/2025 Do you belong to [...] occasion? Never 06/05/2025 [facility] [...] first t kennedy in the morning (EYE-SENIOR SYSTEMS DEVELOPER) to steady your nerves or to [...] all sorted out and set up in [place]. Pt voiced understanding. * Telephone Encounter - [...] is now staying with her sister in [place] for this assistance. Patient will be staying with her sister until something is set up with palliative care. Patient wants to be back on the transplant list. Please call patient to advise/discuss. Best contact number: [phone] Optimal time of day to reach caller: ANYTIME Additional comments/information from caller: None Note: Please do not reply to this message. Follow-up communication and further actions as a result of this message need to be communicated with the patient directly, if the patient is not active onMyChart. If the patient is active on MyChart, they will receive notification of the communication/outcome via Boutir. documented in this encounter Plan of Treatment Upcoming Encounters Date Type Department Care Team (Late st Contact Info) Description 06/27/2025 9:30 AM EDT Appointment [facility] Inter[facility] Radiology [address] [place] [address] 06/27/2025 10:30 AM EDT Appointment [facility] Radiology [address] [place] [address] 07/04/2025 10:30 AM EDT Appointment [facility] [address] [place] [address] 07/04/2025 11:30 AM EDT Appointment [facility] Inter[facility]iology [address] [place] [address] 07/09/2025 2:40 PM EDT Office Visit [facility] Mineral Metabolism [address], [address] [place] [address] Ar Dominique MD [address] [place] [address] 07/11/2025 10:30 AM EDT Appointment [facility] Inter[facility] Radiology [address] [place] [address] 07/11/2025 11:30 AM EDT Appointment [facility] Inter[facility] Radiology [address] [place] [address] 07/18/2025 10:30 AM EDT Appointment [facility] Radiology [address] [place] [address] 07/18/2025 11:30 AM EDT Appointment [facility] [address] [place] [address] 07/25/2025 10:30 AM EDT Appointment [facility] [address] [place] [address] 07/25/2025 11:30 AM EDT Appointment [facility]iology [address] [place] [address] 07/31/2025 9:00 AM EDT Office Visit [address] [address] Alvarez Zimmer MD [address] [place] [address] 08/20/2025 9:30 AM EDT Clinical Support [facility] [place] [address] [place] [address] 08/20/2025 10:30 AM EDT Social Work [facility] [place] [address] [place] [address] [place] [address] 08/20/2025 11:00 AM EDT Office Visit [facility] [place] [address] [place] [address] Jude Duque MD [address] [place] [address] 10/30/2025 1:20 PM EST Office Visit [facility] Endocrinology [address] [place] [address] Sharif Moreno, DPNicole [address] [place] [address] documented as of this encounter [...] documented as of this encounter Care Teams Drive In Waiter/Waitress Relationship Specialty Start Date End Date Alvarez Zimmer MD [address] [place] [address] PCP - General Family Medicine 12/07/24 Lea Fernando [address] [facility] [address] [place] [address] Aircraft Landing Gear Inspector Endocrinology 08/29/24 Rachel Ray APRN [address] [place] [address] Nurse Practitioner Gastroenterology 09/24/24 Tamera Isabel LPN VALUE-BASED TRANSFORMATION PROGRAM Licensed Practical Nurse 05/29/25 documented as of this encounter
--- OUTSIDE RECORDS SUMMARY | 2025-06-24 09:49 | XMS_ITS | Encounter Summary ---
Author Organization Healthcare Address [address] [place] [address] Care Team Providers Care Automotive Exhaust Emissions Technician Name Role Phone Lea Fernando Unavailable [phone] Rachel Ray PASSENGER TIRE INSPECTOR Unavailable [phone] Alvarez Zimmer MD Primary Care Provider [phone] Tamera Isabel LPN Unavailable Unavailabl e Encounter Details Date Type Department Care Team (Late st Contact Info) Description 06/17/2025 [facility]phone [facility] [address] [place] [address] Deysi Antonio MD [address] [facility] [address] [place] [address] Social History Tobacco Use Types [...] do you attend [facility] or voodoo services? Patient unable to answer 01/10/2025 Do [...] How often do you attend chur or voodoo services? Never 05/29/2025 Do you belong to [...] more drinks on one occasion? Never 06/05/2025 [facility] - Occupational Stress Questionnaire Answer Date [...] first t kennedy in the morning (EYE-DINING SERVICE WORKER) to steady your nerves or to [...] taking 52 units of Lantus daily, and [id number] units for regular meals, and 12 units [...] levels, especially at night? Best contact number: [phone] Optimal time of day to reach caller: [...] Upcoming Encounters Date Type Department Care Team ([facility] Contact Info) Description 06/27/2025 9:30 AM EDT Appointment [facility] Interventional Radiology [address] [place] [address] 06/27/2025 10:30 AM EDT Appointment [facility] Interventional Radiology [address] [place] [address] 07/04/2025 10:30 AM EDT Appointment [facility] Inter[facility] Radiology [address] [place] [address] 07/04/2025 11:30 AM EDT Appointment [facility] Interventional Radiology [address] [place] [address] 07/09/2025 2:40 PM EDT Office Visit [facility] [address] [facility], [address] [place] [address] Ar Dominique MD [address] [facility] [address] [place] [address] 07/11/2025 10:30 AM EDT Appointment [facility] Radiology [address] [place] [address] 07/11/2025 11:30 AM EDT Appointment [facility] [address] [place] [address] 07/18/2025 10:30 AM EDT Appointment [facility] Inter[facility] Radiology [address] [place] [address] 07/18/2025 11:30 AM EDT Appointment [facility] Inter[facility] Radiology [address] [place] [address] 07/25/2025 10:30 AM EDT Appointment [facility] Inter[facility] Radiology [address] [place] [address] 07/25/2025 11:30 AM EDT Appointment [facility] Inter[facility] Radiology [address] [place] [address] 07/31/2025 9:00 AM EDT Office Visit [facility] [address] [place] [address] Alvarez Zimmer MD [address] [place] [address] 08/20/2025 9:30 AM EDT Clinical Support [facility] [place] [address] [place] [address] 08/20/2025 10:30 AM EDT Social Work [facility] [place] [address] [place] [address] Deysi Ortega [place], [place] [address] 08/20/2025 11:00 AM EDT Office Visit [facility] [place] [address] [place] [address] Jude Duque MD [address] [place] [address] 10/30/2025 1:20 PM EST Office Visit [facility] Endocrinology [address] [place] [address] Sharif Moreno, DPM [address] [place] [address] documented as of this encounter [...] as of this encounter Care Teams Automotive Exhaust Emissions Technician Relationship Specialty Start Date End Date Alvarez Zimmer MD [address] [place] [address] PCP - General Family Medicine 12/07/24 Lea Fernando [address] [place] [address] Musculoskeletal Physiotherapist Endocrinology 08/29/24 Rachel Ray APRN [address] [facility] [address] [place] [address] Nurse Practitioner Gastroenterology 09/24/24 Tamera Isabel LPN VALUE-BASED TRANSFORMATION PROGRAM Licensed Practical Nurse 05/29/25 documented as of this encounter
--- OUTSIDE RECORDS SUMMARY | 2025-06-24 09:49 | XMS_ITS | Encounter Summary ---
Author Organization [employer] ([place], [place], [place], [place]) Address [address] [place] [address] Care Team Providers Care Medical Accountant Name Role Phone Taina Lyles ADRI Primary Care Provider [phone] Encounter Details Date Type Department Care Team (Late st Contact Info) Description 07/02/2021 Transcribed Document [facility] Family Medicine [address] [place] [address] ProviderWilliam MD [address] [place], [place] [id number] Social History Tobacco Use Types Packs/Day Years [...] CARE BEDSIDE NON-EXEMPT - 07/02/2021 12:33 EDT documented in this encounter Plan of Treatment Not on file documented as of this encounter Visit Diagnoses Not on filedocumented in this encounter Care Teams Medical Accountant Relationship Specialty Start Date End Date Taina Lyles, [employer] E[employer] ANALYST [address] [place] [address] PCP - General Nurse Practitioner 06/15/23 documented as of this encounter
--- OUTSIDE RECORDS SUMMARY | 2025-06-24 09:50 | XMS_ITS | Encounter Summary ---
Author Organization Healthcare Address [address] [place] [address] Care Team Providers Care Necktie Maker Name Role Phone Lea Fernando Unavailable [phone] Rachel Ray LOGGING CONTRACTOR Unavailable [phone] Alvarez Zimmer MD Primary Care Provider [phone] Tamera Isabel LPN Unavailable Unavailabl e Reason for Visit * Reason Onset Date Comments Med Refill 06/01/2025 Encounter Details Date Type Department Care Team (Late st Contact Info) Description 06/01/2025 Refill [facility] [address] [facility], [address] [place] [address] Ar Dominique MD [address] [facility] [address] [place] [address] Chronic kidney disease, stage 3b [...] do you attend [facility] or v[facility]oo services? Patient unable to [...] occasion? Never 06/05/2025 [facility] Occupat ional Health [...] drink first t kennedy in the morning (EYE-SILO ERECTOR) to steady your nerves or to [...] Appointment [facility] Inter[facility] Radiology [address] [place] [address] 06/27/2025 10:30 AM EDT Appointment [facility] Inter[facility] Radiology [address] [place] [address] 07/04/2025 10:30 AM EDT Appointment [facility] Inter[facility] Radiology [address] [place] [address] 07/04/2025 11:30 AM EDT Appointment [facility] Inter[facility] Radiology [address] [place] [address] 07/09/2025 2:40 PM EDT Office Visit [facility] [address] [facility], [address] [place] [address] Ar Dominique MD [address] [place] [address] 07/11/2025 10:30 AM EDT Appointment [facility] [address] [place] [address] 07/11/2025 11:30 AM EDT Appointment [facility] [address] [place] [address] 07/18/2025 10:30 AM EDT Appointment [facility] [address] [place] [address] 07/18/2025 11:30 AM EDT Appointment [facility] [address] [place] [address] 07/25/2025 10:30 AM EDT Appointment [facility] [address] [place] [address] 07/25/2025 11:30 AM EDT Appointment [facility] Inter[facility]iology [address] [place] [address] 07/31/2025 9:00 AM EDT Office Visit [facility] [address] [place] [address] Alvarez Zimmer MD [address] [place] [address] 08/20/2025 9:30 AM EDT Clinical Support [facility] [place] [address] [place] [address] 08/20/2025 10:30 AM EDT Social Work [facility] [place] [address] [place] [address] [place] [address] 08/20/2025 11:00 AM EDT Office Visit [facility] [place] [address] [place] [address] Jude Duque MD [address] [place] [address] 10/30/2025 1:20 PM EST Office Visit [facility] Endocrinology [address] [place] [address] Sharif Moreno, ROSY [address] [place] [address] documented as of this encounter [...] documented as of this encounter Care Teams Necktie Maker Relationship Specialty Start Date End Date Alvarez Zimmer MD [address] [place] [address] PCP - General Family Medicine 12/07/24 Lea Fernando [address] [facility] [address] [place] [address] Hyperbaric Welder Diver Endocrinology 08/29/24 Rachel Ray APRN [address] [facility] [address] [place] [address] Nurse Practitioner Gastroenterology 09/24/24 Tamera Isabel LPN VALUE-BASED TRANSFORMATION PROGRAM Licensed Practical Nurse 05/29/25 documented as of this encounter
--- OUTSIDE RECORDS SUMMARY | 2025-06-24 09:50 | XMS_ITS | Encounter Summary ---
Author Organization [employer] ([place], [place], [place], [place]) Address [address] [place] [address] Care Team Providers Care Counter Caser Name Role Phone Taina Lyles APRN Primary Care Provider [phone] Encounter Details Date Type Department Care Team (Late st Contact Info) Description 07/02/2021 Transcribed Document [facility] Family Medicine [address] [place] [address] ProviderWilliam MD [address] [place] [address] Social History Tobacco Use Types Packs/Day Years [...] 10:49 AM CDT Electronically signed by Luigi [facility] Conversion Bulk Mail Clerk Cerner at 03/07/2023 9:52 AM CDT documented in this encounter Plan of Treatment Not on file documented as of this encounter Visit Diagnoses Not on filedocumented in this encounter Care Teams Counter Caser Relationship Specialty Start Date End Date Taina Lyles APRN [address] [facility] [address] PCP - General Nurse Practitioner 06/15/23 documented as of this encounter
--- OUTSIDE RECORDS SUMMARY | 2025-06-24 09:50 | XMS_ITS | Encounter Summary ---
Author Organization [facility] Address [address] [place] [address] Care Team Providers Care Manager Income Tax Name Role Phone Lea Fernando Unavailable [phone] Rachel Ray BARTENDER Unavailable [phone] Alvarez Zimmer MD Primary Care Provider [phone] Tamera Isabel LPN Unavailable Unavailabl e Reason for Visit * Reason Comments Annual Wellness Visit Encounter Details Date Type Department Care Team (Late st Contact Info) Description 05/29/2025 Patient Outreach POPULATION HEALTH [address] [facility], [address] [place] [address] Tamera Isabel LPN VALUE-BASED TRANSFORMATION [...] any clubs o r organizations such as mormonism groups, unions, fraternal or athletic groups, or [...] any clubs o r organizations such as mormonism groups, unions, fraternal or athletic groups, or [...] more drinks on one occasion? Never 05/29/2025 [facility] - Occupational Stress Questionnaire Answer Date [...] drink first t kennedy in the morning (EYE-REAL ESTATE LEASING MANAGER) to steady your nerves or to get rid of a hangover? 0 10/22/2024 CAGE Questionnaire Score 0 024 Utilities Answer Date Recorded In the past 12 months has th e [employer], gas, oil, or water Curios[employer] threatened to shut off services in your [...] with Concerns Stress: Stress Concern Present (05/29/2025) [facility] - Occupational Stress Questionnaire [...] Friends and Family: Once a week Attends Scientology Services: Never Active Member of Clubs or [...] Appointment [facility] Inter[facility] Radiology [address] [place] [address] 06/27/2025 10:30 AM EDT Appointment [facility] [address] [place] [address] 07/04/2025 10:30 AM EDT Appointment [facility] [address] [place] [address] 07/04/2025 11:30 AM EDT Appointment [facility]iology [address] [place] [address] 07/09/2025 2:40 PM EDT Office Visit Professional [facility] [address] [facility], [address] [place] [address] Ar Dominique MD [address] [place] [address] 07/11/2025 10:30 AM EDT Appointment [facility] Radiology [address] [place] [address] 07/11/2025 11:30 AM EDT Appointment [facility] [address] [place] [address] 07/18/2025 10:30 AM EDT Appointment [facility] [address] [place] [address] 07/18/2025 11:30 AM EDT Appointment [facility] [address] [place] [address] 07/25/2025 10:30 AM EDT Appointment [facility] Radiology [address] [place] [address] 07/25/2025 11:30 AM EDT Appointment [facility] Rad[facility] [address] [place] [address] 07/31/2025 9:00 AM EDT Office Visit [facility] [address] [place] [address] Alvarez Zimmer MD [address] [place] [address] 08/20/2025 9:30 AM EDT Clinical Support [facility] [place] [address] [place] [address] 08/20/2025 10:[address] [facility] [place] [address] [place] [address] Deysi Ortega [place], [place] [id number] 08/20/2025 11:00 AM EDT Office Visit [facility] [place] [address] [place] [address] Jude Duque MD [address] [place] [address] 10/30/2025 1:20 PM EST Office Visit [facility] Endocrinology [address] [place] [address] Sharif Moreno, DPM [address] [place] [address] documented as of this encounter Visit Diagnoses [...] as of this encounter Care Teams Manager Income Tax Relationship Specialty Start Date End Date Alvarez Zimmer MD [address] [place] [address] PCP - General Family Medicine 12/07/24 Lea Fernando [address] [facility] [address] [place] [address] Development Director Endocrinology 08/29/24 Rachel Ray, BARTENDER [address] [place] [address] Nurse Practitioner Gastroenterology 09/24/24 Tamera Isabel LPN VALUE-BASED TRANSFORMATION PROGRAM Licensed Practical Nurse 05/29/25 documented as of this encounter
--- OUTSIDE RECORDS SUMMARY | 2025-06-24 09:50 | XMS_ITS | Encounter Summary ---
Author Organization Healthcare Address [address] [place] [address] Care Team Providers Care Road Roller Operator Hot Mix Name Role Phone Lea Fernando Unavailable [phone] Rachel Ray HVAC R TECH Unavailable [phone] Alvarez Zimmer MD Primary Care Provider [phone] Tamera Isabel LPN Unavailable Unavailabl e Encounter [...] How often do you attend [facility] or sabianism services? Patient unable to answer 01/10/2025 Do you belong to any clubs o r organizations such as worship groups, unions, fraternal or athletic groups, or [...] you attend chur ch or sabianism services? Never 05/29/2025 Do you belong to any clubs o r organizations such as worship groups, unions, fraternal or athletic groups, or [...] [facility] - Occupational Stress Questionnaire [...] drink first t kennedy in the morning (EYE-VARNISH MELTER HELPER) to steady your nerves or to get [...] Appointment [facility] Interventional Radiology [address] [place] [address] 06/27/2025 10:30 AM EDT Appointment [facility] [address] [place] [address] 07/04/2025 10:30 AM EDT Appointment [facility] [address] [place] [address] 07/04/2025 11:30 AM EDT Appointment [facility] Radiology [address] [place] [address] 07/09/2025 2:40 PM EDT Office Visit Professional [facility] Met[facility] [address] [facility], [address] [place] [address] Ar Dominique MD [address] [facility] [address] [place] [address] 07/11/2025 10:30 AM EDT Appointment [facility] Radiology [address] [place] [address] 07/11/2025 11:30 AM EDT Appointment [facility] [address] [place] [address] 07/18/2025 10:30 AM EDT Appointment [facility] [address] [place] [address] 07/18/2025 11:30 AM EDT Appointment [facility] Radiology [address] [facility] [place] [place] [address] 07/25/2025 10:30 AM EDT Appointment [facility] Inter[facility] Radiology [address] [place] [address] 07/25/2025 11:30 AM EDT Appointment [facility] Inter[facility] Radiology [address] [place] [address] 07/31/2025 9:00 AM EDT Office Visit [facility] [address] [place] [address] Alvarez Zimmer MD [address] [place] [address] 08/20/2025 9:30 AM EDT Clinical Support [facility] [place] [address] [place] [address] 08/20/2025 10:30 AM EDT Social Work [facility] [place] [address] [place] [address] Deysi Ortega [place], [place] [address] 08/20/2025 11:00 AM EDT Office Visit [facility] [place] [address] [place] [address] Jude Duque MD [address] [place] [address] 10/30/2025 1:20 PM EST Office Visit [facility] Endocrinology [address] [place] [address] Sharif Moreno, DPNicole [address] [place] [address] documented as of this encounter Visit Diagnoses [...] documented as of this encounter Care Teams Road Roller Operator Hot Mix Relationship Specialty Start Date End Date Alvarez Zimmer MD [address] [place] [address] PCP - General Family Medicine 12/07/24 Lea Fernando [address] [place] [address] Agricultural Economist Endocrinology 08/29/24 Rachel Ray APRN [address] [place] [address] Nurse Practitioner Gastroenterology 09/24/24 Tamera Isabel LPN VALUE-BASED TRANSFORMATION PROGRAM Licensed Practical Nurse 05/29/25 documented as of this encounter
--- OUTSIDE RECORDS SUMMARY | 2025-06-24 09:50 | XMS_ITS | Encounter Summary ---
Author Organization Healthcare Address [address] [place] [address] Care Team Providers Care Track Machine Operator Repairer Name Role Phone Lea Fernando Unavailable [phone] Rachel Ray TOP STEEP TENDER Unavailable [phone] Alvarez Zimmer MD Primary Care Provider [phone] Encounter Details Date Type Department Care Team [...] often do you attend chur ch or zoroastrian services? Patient unable to answer [...] Recorded Patient Health Questionnaire-2 Score 1 05/07/2025 [facility] ional Health - Occupational [...] drink first t kennedy in the morning (EYE-WILDLIFE REFUGE SPECIALIST) to steady your nerves or to [...] Appointment [facility] Interventional Radiology [address] [place] [address] 06/27/2025 10:30 AM EDT Appointment [facility] Inter[facility] Radiology [address] [place] [address] 07/04/2025 10:30 AM EDT Appointment [facility] Rad[facility] [address] [place] [address] 07/04/2025 11:30 AM EDT Appointment [facility] Inter[facility] Radiology [address] [place] [address] 07/09/2025 2:40 PM EDT Office Visit [facility] [place] [facility] [address] [facility], [address] [place] [address] Ar Dominique MD [address] [facility] [address] [place] [address] 07/11/2025 10:30 AM EDT Appointment [facility] [address] [place] [address] 07/11/2025 11:30 AM EDT Appointment [facility] [address] [place] [address] 07/18/2025 10:30 AM EDT Appointment [facility] [address] [place] [address] 07/18/2025 11:30 AM EDT Appointment [facility] [address] [place] [address] 07/25/2025 10:30 AM EDT Appointment [facility] [address] [place] [address] 07/25/2025 11:30 AM EDT Appointment [facility] Inter[facility] Radiology [address] [place] [address] 07/31/2025 9:00 AM EDT Office Visit [facility] [address] [place] [address] Alvarez Zimmer MD [address] [place] [address] 08/20/2025 9:30 AM EDT Clinical Support [facility] [place] [address] [place] [address] 08/20/2025 10:[address] [facility] [place] [address] [place] [address] Deysi Ortega [place], [place] [address] 08/20/2025 11:00 AM EDT Office Visit [facility] [place] [address] [place] [address] Jude Duque MD [address] [place] [address] 10/30/2025 1:20 PM EST Office Visit [facility] Endocrinology [address] [place] [address] Sharif Moreno, DPNicole [address] [place] [address] documented as of this encounter [...] documented as of this encounter Care Teams Track Machine Operator Repairer Relationship Specialty Start Date End Date Alvarez Zimmer MD [address] [place] [address] PCP - General Family Medicine 12/07/24 Lea Fernando [address] [place] [address] Poured Concrete Wall Technician Endocrinology 08/29/24 Rachel Ray, TOP STEEP TENDER [address] [place] [address] Nurse Practitioner Gastroenterology 09/24/24 documented as of this encounter
--- OUTSIDE RECORDS SUMMARY | 2025-06-24 09:50 | XMS_ITS | Encounter Summary ---
Author Organization Healthcare Address [address] [place] [address] Care Team Providers Care Learning And Development Associate Name Role Phone Lea Fernando Unavailable [phone] Rachel Ray VOCATIONAL DIRECTOR Unavailable [phone] Alvarez Zimmer MD Primary Care Provider [phone] Tamera Isabel LPN Unavailable Unavailabl e Encounter Details Date Type Department Care Team (Late st Contact Info) Description 05/23/2025 Results Follow-Up [facility] [address] [place] [address] Wilma Arana, [facility] LIVER [id number] [address] [place] [address] Social History Tobacco Use Types [...] often do you attend chur ch or congregation services? Patient unable to answer 01/10/2025 Do [...] any time in the past 12 m [facility], were you homeless or living [...] How often do you attend chur or congregation services? Never 05/29/2025 Do you belong to [...] Never 06/05/2025 [facility] - Occupational Stress Questionnaire Answer [...] any time in the past 12 m [facility], were you homeless or living [...] t kennedy in the morning (EYE-REAL ESTATE CONSULTANT) to steady your nerves or to get rid of a hangover? 0 10/22/2024 CAGE Questionnaire Score 0 024 Utilities Answer Date Recorded In the past 12 months has th e [employer], gas, oil, or water company threatened to [...] orders were placed on 05/17 to advise seed laboratory technician of this they should be able to [...] Appointment [facility] Interventional Radiology [address] [place] [address] 06/27/2025 10:30 AM EDT Appointment [facility] Inter[facility] Radiology [address] [place] [address] 07/04/2025 10:30 AM EDT Appointment [facility] Inter[facility] Radiology [address] [place] [address] 07/04/2025 11:30 AM EDT Appointment [facility] Interventional Radiology [address] [place] [address] 07/09/2025 2:40 PM EDT Office Visit Professional [employer] [place] [facility] [address] [facility] [facility], [address] [place] [address] Ar Dominique MD [address] [place] [address] 07/11/2025 10:30 AM EDT Appointment [facility] Interventional Radiology [address] [place] [address] 07/11/2025 11:30 AM EDT Appointment [facility] Interventional Radiology [address] [place] [address] 07/18/2025 10:30 AM EDT Appointment [facility] Inter[facility] Radiology [address] [place] [address] 07/18/2025 11:30 AM EDT Appointment [facility] Interventional Radiology [address] [place] [address] 07/25/2025 10:30 AM EDT Appointment [facility] Inter[facility] Radiology [address] [place] [address] 07/25/2025 11:30 AM EDT Appointment [facility] Interventional Radiology [address] [place] [address] 07/31/2025 9:00 AM EDT Office Visit [address] [address] Alvarez Zimmer MD [address] [place] [address] 08/20/2025 9:30 AM EDT Clinical Support [facility] [address] [place] [address] 08/20/2025 10:30 AM EDT Social Work [facility] [place] [address] [place] [address] [place] [address] 08/20/2025 11:00 AM EDT Office Visit [facility] [address] [place] [address] Jude Duque MD [address] [place] [address] 10/30/2025 1:20 PM EST Office Visit [facility] Endocrinology [address] [place] [address] Sharif Moreno, DPM [address] [place] [address] documented as of this encounter [...] documented as of this encounter Care Teams Learning And Development Associate Relationship Specialty Start Date End Date Al[place] [address] PCP - General Family Medicine 12/07/24 Lea Fernando [address] [facility] [address] [place] [address] Branch Service Associate Endocrinology 08/29/24 Rachel Ray, VOCATIONAL DIRECTOR [address] [facility] [address] [place] [address] Nurse Practitioner Gastroenterology 09/24/24 Tamera Isabel LPN VALUE-BASED TRANSFORMATION PROGRAM Licensed Practical Nurse 05/29/25 documented as of this encounter
--- OUTSIDE RECORDS SUMMARY | 2025-06-24 09:50 | XMS_ITS | Encounter Summary ---
Author Organization Healthcare Address [address] [place] [address] Care Team Providers Care Gas Fitter Helper Name Role Phone Lea Fernando Unavailable [phone] Rachel Ray HAND FUNNEL COATER Unavailable [phone] Alvarez Zimmer MD Primary Care Provider [phone] Tamera Isabel JUNIOR NETWORK ADMINISTRATOR Unavailable Unavailabl e Reason for Visit * Reason Onset Date Comments Med Refill 06/01/2025 Encounter Details Date Type Department Care Team (Late st Contact Info) Description 06/01/2025 [facility] [address] [facility] [address] [place] [address] Octavia Herrera, PA [address] [facility] [address] [place] [address] 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 Patient unable to answer 01/10/2025 Do [...] How often do you attend chur or zoroastrianism services? Never 05/29/2025 Do you belong to [...] more drinks on one occasion? Never 05/29/2025 [facility] ional Health - Occupational Stress [...] drink first t kennedy in the morning (EYE-DICE SPOTTER) to steady your nerves or to get [...] Appointment [facility] Interventional Radiology [address] [place] [address] 06/27/2025 10:30 AM EDT Appointment [facility] Interventional Radiology [address] [place] [address] 07/04/2025 10:30 AM EDT Appointment [facility] Inter[facility] Radiology [address] [place] [address] 07/04/2025 11:30 AM EDT Appointment [facility] Interventional Radiology [address] [place] [address] 07/09/2025 2:40 PM EDT Office Visit [facility] [place] [facility] [address] [facility], [address] [place] [address] Ar Dominique MD [address] [place] [address] 07/11/2025 10:30 AM EDT Appointment [facility] Interventional Radiology [address] [place] [address] 07/11/2025 11:30 AM EDT Appointment [facility] Inter[facility] Radiology [address] [place] [address] 07/18/2025 10:30 AM EDT Appointment [facility] Inter[facility] Radiology [address] [place] [address] 07/18/2025 11:30 AM EDT Appointment [facility] [address] [place] [address] 07/25/2025 10:30 AM EDT Appointment [facility] Inter[facility] Radiology [address] [place] [address] 07/25/2025 11:30 AM EDT Appointment [facility] Interventional Radiology [address] [place] [address] 07/31/2025 9:00 AM EDT Office Visit [facility] [address] [place] [address] Alvarez Zimmer MD [address] [place] [address] 08/20/2025 9:30 AM EDT Clinical Support [facility] [place] [address] [place] [address] 08/20/2025 10:30 AM EDT Social Work [facility] [place] [address] [place] [address] Deysi Ortega [place], [place] [address] 08/20/2025 11:00 AM EDT Office Visit [facility] [place] [address] [place] [address] Jude Duque MD [address] [place] [address] 10/30/2025 1:20 PM EST Office Visit [facility] Endocrinology [address] [place] [address] Sharif Moreno, ROSY [address] [place] [address] documented as of this encounter [...] documented as of this encounter Care Teams Gas Fitter Helper Relationship Specialty Start Date End Date Alvarez Zimmer MD [address] [place] [address] PCP - General Family Medicine 12/07/24 Lea Fernando [address] [facility] [address] [place] [address] Chart Reader Endocrinology 08/29/24 Rachel Ray APRN [address] [place] [address] Nurse Practitioner Gastroenterology 09/24/24 Tamera Isabel, JUNIOR NETWORK ADMINISTRATOR VALUE-BASED TRANSFORMATION PROGRAM Licensed Practical Nurse 05/29/25 documented as of this encounter
--- OUTSIDE RECORDS SUMMARY | 2025-06-24 09:50 | XMS_ITS | Encounter Summary ---
Author Organization Healthcare Address [address] [place] [address] Care Team Providers Care Systems Integration Analyst Name Role Phone Lea Fernando Unavailable [phone] Rachel Ray FORGESMITH Unavailable [phone] Alvarez Zimmer MD Primary Care Provider [phone] Tamera Isabel LPN Unavailable Unavailabl e Encounter [...] you attend [facility] or orthodox services? Patient unable to answer [...] time in the past 12 m [facility], were you homeless or living [...] often do you attend chur ch or orthodox services? Never 05/29/2025 Do you [...] drinks on one occasion? Never 05/29/2025 [facility] - Occupational Stress Questionnaire [...] time in the past 12 m [facility], were you homeless or living [...] first t kennedy in the morning (EYE-MANAGER OPERATIONS) to steady your nerves or to get [...] Appointment [facility] Interventional Radiology [address] [place] [address] 06/27/2025 10:30 AM EDT Appointment [facility] Interventional Radiology [address] [place] [address] 07/04/2025 10:30 AM EDT Appointment [facility] Inter[facility] Radiology [address] [place] [address] 07/04/2025 11:30 AM EDT Appointment [facility] Interventional Radiology [address] [place] [address] 07/09/2025 2:40 PM EDT Office Visit Professional [facility] Mineral Met[facility] [address] [facility], [address] [place] [address] Ar Dominique MD [address] [facility] [address] [place] [address] 07/11/2025 10:30 AM EDT Appointment [facility] Interventional Radiology [address] [place] [address] 07/11/2025 11:30 AM EDT Appointment [facility] Rad[facility] [address] [place] [address] 07/18/2025 10:30 AM EDT Appointment [facility] [address] [place] [address] 07/18/2025 11:30 AM EDT Appointment [facility] Inter[facility] Radiology [address] [place] [address] 07/25/2025 10:30 AM EDT Appointment [facility] Inter[facility] Radiology [address] [place] [address] 07/25/2025 11:30 AM EDT Appointment [facility] Interventional Radiology [address] [place] [address] 07/31/2025 9:00 AM EDT Office Visit [facility] [address] [place] [address] Alvarez Zimmer MD [address] [place] [address] 08/20/2025 9:30 AM EDT Clinical Support [facility] [place] [address] [place] [address] 08/20/2025 10:30 AM EDT Social Work [facility] [place] [address] [place] [address] Deysi Ortega [place], [place] [address] 08/20/2025 11:00 AM EDT Office Visit [facility] [place] [address] [place] [address] Jude Duque MD [address] [place] [address] 10/30/2025 1:20 PM EST Office Visit [facility] Endocrinology [address] [place] [address] Sharif Moreno, DPM [address] [place] [address] documented as of this encounter Visit Diagnoses [...] documented as of this encounter Care Teams Systems Integration Analyst Relationship Specialty Start Date End Date Alvarez Zimmer MD [address] [place] [address] PCP - General Family Medicine 12/07/24 Lea Fernando [address] [place] [address] Tack Cutter Endocrinology 08/29/24 Rachel Ray APRN [address] [facility] [address] [place] [address] Nurse Practitioner Gastroenterology 09/24/24 Tamera Isabel LPN VALUE-BASED TRANSFORMATION PROGRAM Licensed Practical Nurse 05/29/25 documented as of this encounter
--- OUTSIDE RECORDS SUMMARY | 2025-06-24 09:50 | XMS_ITS | Encounter Summary ---
Author Organization Healthcare Address [address] [place] [address] Care Team Providers Care Sales And Marketing Assistant Name Role Phone Lea Fernando Unavailable [phone] Rachel Ray PEN MAKER Unavailable [phone] Alvarez Zimmer MD Primary Care Provider [phone] Encounter Details Date Type Department Care Team [...] How often do you attend chur or adventist services? Patient unable to answer 01/10/2025 Do [...] often do you attend chur ch or adventist services? Never 05/29/2025 Do you belong to [...] drinks on one occasion? Never 05/29/2025 [facility] - Occupational [...] drink first t kennedy in the morning (EYE-MULTICULTURAL SERVICES LIBRARIAN) to steady your nerves or to get [...] Appointment [facility] Inter[facility] Radiology [address] [place] [address] 06/27/2025 10:30 AM EDT Appointment [facility] [address] [place] [address] 07/04/2025 10:30 AM EDT Appointment [facility]iology [address] [place] [address] 07/04/2025 11:30 AM EDT Appointment [facility] Inter[facility] Radiology [address] [place] [address] 07/09/2025 2:40 PM EDT Office Visit [facility] Mineral Metabolism [address], [address] [place] [address] Ar Dominique MD [address] [place] [address] 07/11/2025 10:30 AM EDT Appointment [facility]iology [address] [place] [address] 07/11/2025 11:30 AM EDT Appointment [facility] [address] [place] [address] 07/18/2025 10:30 AM EDT Appointment [facility] [address] [place] [address] 07/18/2025 11:30 AM EDT Appointment [facility] [address] [place] [address] 07/25/2025 10:30 AM EDT Appointment [facility] [address] [place] [address] 07/25/2025 11:30 AM EDT Appointment [facility]iology [address] [place] [address] 07/31/2025 9:00 AM EDT Office Visit [address] [place] [address] Alvarez Zimmer MD [address] [place] [address] 08/20/2025 9:30 AM EDT Clinical Support [facility] [place] [address] [place] [address] 08/20/2025 10:[address] [facility] [place] [address] [place] [address] [place] [address] 08/20/2025 11:00 AM EDT Office Visit [facility] [place] [address] [place] [address] Jude Duque MD [address] [place] [address] 10/30/2025 1:20 PM EST Office Visit [facility] Endocrinology [address] [place] [address] Sharif Moreno, DPM [address] [facility] [address] [place] [address] documented as of this encounter [...] documented as of this encounter Care Teams Sales And Marketing Assistant Relationship Specialty Start Date End Date [place] [address] PCP - General Family Medicine 12/07/24 Lea Fernando [address] [place] [address] French Polisher Endocrinology 08/29/24 Rachel Ray, ADRI [address] [place] [address] Nurse Practitioner Gastroenterology 09/24/24 documented as of this encounter
--- OUTSIDE RECORDS SUMMARY | 2025-06-24 09:50 | XMS_ITS | Encounter Summary ---
Author Organization Healthcare Address [address] [place] [address] Care Team Providers Care Cutter Down Name Role Phone Lea Fernando Unavailable [phone] Rachel Ray AUTO VINYL TOP INSTALLER Unavailable [phone] Alvarez Zimmer MD Primary Care Provider [phone] Tamera Isabel LPN Unavailable Unavailabl e Encounter [...] How often do you attend [facility] or scientologist services? Patient unable to answer [...] you attend chur ch or scientologist services? Never 05/29/2025 Do you [...] more drinks on one occasion? Never 05/29/2025 [facility] - Occupational [...] drink first t kennedy in the morning (EYE-OSTOMY NURSE) to steady your nerves or to get [...] Appointment [facility] Interventional Radiology [address] [place] [address] 06/27/2025 10:30 AM EDT Appointment [facility] Inter[facility] Radiology [address] [place] [address] 07/04/2025 10:30 AM EDT Appointment [facility]iology [address] [place] [address] 07/04/2025 11:30 AM EDT Appointment [facility] Inter[facility] Radiology [address] [place] [address] 07/09/2025 2:40 PM EDT Office Visit [facility] Bone & Mineral Metabolism [address], [address] [place] [address] Ar Dominique MD [address] [place] [address] 07/11/2025 10:30 AM EDT Appointment [facility]iology [address] [place] [address] 07/11/2025 11:30 AM EDT Appointment [facility] [address] [place] [address] 07/18/2025 10:30 AM EDT Appointment [facility] [address] [place] [address] 07/18/2025 11:30 AM EDT Appointment [facility] [address] [place] [address] 07/25/2025 10:30 AM EDT Appointment [facility] [address] [place] [address] 07/25/2025 11:30 AM EDT Appointment [facility] [address] [place] [address] 07/31/2025 9:00 AM EDT Office Visit [address] [address] Alvarez Zimmer MD [address] [place] [address] 08/20/2025 9:30 AM EDT Clinical Support [facility] [place] [address] [place] [address] 08/20/2025 10:30 AM EDT Social Work [facility] [place] [address] [place] [address] [place] [address] 08/20/2025 11:00 AM EDT Office Visit [facility] [place] [address] [place] [address] Jude Duque MD [address] [place] [address] 10/30/2025 1:20 PM EST Office Visit [facility] Endocrinology [address] [place] [address] Sharif Moreno, ROSY [address] [place] [address] documented as of this encounter [...] documented as of this encounter Care Teams Cutter Down Relationship Specialty Start Date End Date Alvarez Zimmer MD [address] [place] [address] PCP - General Family Medicine 12/07/24 Lea Fernando [address] [facility] [address] [place] [address] Forestry Workers Endocrinology 08/29/24 Rachel Ray APRN [address] [facility] [address] [place] [address] Nurse Practitioner Gastroenterology 09/24/24 Tamera Isabel LPN VALUE-BASED TRANSFORMATION PROGRAM Licensed Practical Nurse 05/29/25 documented as of this encounter
--- OUTSIDE RECORDS SUMMARY | 2025-06-24 09:50 | XMS_ITS | Encounter Summary ---
Author Organization Healthcare Address [address] [place] [address] Care Team Providers Care Outbound Telemarketer Name Role Phone Lea Fernando Unavailable [phone] Rachel Ray LEAD MINER BLASTING Unavailable [phone] Alvarez Zimmer MD Primary Care Provider [phone] Encounter Details Date Type Department Care Team (Late st Contact Info) Description 05/23/2025 Orders Only [facility] Endocrinology [address] [place] [address] Enmanuel Wetzel MD [address] [place] [address] Social History Tobacco Use Types [...] you attend [facility] or episcopal services? Patient unable to answer [...] Recorded Patient Health Questionnaire-2 Score 1 05/07/2025 [facility] of Occupat ional [...] time in the past 12 m [facility], were you homeless or living in a custodial (including now)? No 03/06/2025 CAGE ASSESSMENT Answer [...] drink first t kennedy in the morning (EYE-CONVENTIONS RESERVATIONIST) to steady your nerves or to get [...] Upcoming Encounters Date Type Department Care Team ([facility] Contact Info) Description 06/27/2025 9:30 AM EDT Appointment [facility] Interventional Radiology [address] [place] [address] 06/27/2025 10:30 AM EDT Appointment [facility] Interventional Radiology [address] [place] [address] 07/04/2025 10:30 AM EDT Appointment [facility] Inter[facility] Radiology [address] [place] [address] 07/04/2025 11:30 AM EDT Appointment [facility] Inter[facility] Radiology [address] [place] [address] 07/09/2025 2:40 PM EDT Office Visit [facility] [address] [facility], [address] [place] [address] Ar Dominique MD [address] [facility] [address] [place] [address] 07/11/2025 10:30 AM EDT Appointment [facility] Inter[facility] Radiology [address] [place] [address] 07/11/2025 11:30 AM EDT Appointment [facility] Inter[facility] Radiology [address] [place] [address] 07/18/2025 10:30 AM EDT Appointment [facility] Inter[facility] Radiology [address] [place] [address] 07/18/2025 11:30 AM EDT Appointment [facility] [address] [place] [address] 07/25/2025 10:30 AM EDT Appointment [facility] Inter[facility]iology [address] [place] [address] 07/25/2025 11:30 AM EDT Appointment [facility] Inter[facility] Radiology [address] [place] [address] 07/31/2025 9:00 AM EDT Office Visit [facility] [address] [place] [address] Alvarez Zimmer MD [address] [place] [address] 08/20/2025 9:30 AM EDT Clinical Support [facility] [place] [address] [place] [address] 08/20/2025 10:30 AM EDT Social Work [facility] [place] [address] [place] [address] Deysi Ortega [place], [place] [address] 08/20/2025 11:00 AM EDT Office Visit [facility] [place] [address] [place] [address] Jude Duque MD [address] [place] [address] 10/30/2025 1:20 PM EST Office Visit [facility] Endocrinology [address] [place] [address] Sharif Moreno, DPM [address] [place] [address] documented as of this encounter [...] documented as of this encounter Care Teams Outbound Telemarketer Relationship Specialty Start Date End Date Alvarez Zimmer MD [address] [place] [address] PCP - General Family Medicine 12/07/24 Lea Fernando [address] [place] [address] Diffuser Operator Endocrinology 08/29/24 Rachel Ray, LEAD MINER BLASTING [address] [facility] [address] [place] [address] Nurse Practitioner Gastroenterology 09/24/24 documented as of this encounter
--- OUTSIDE RECORDS SUMMARY | 2025-06-24 09:51 | XMS_ITS | Encounter Summary ---
Author Organization [employer] ([place], [place], [place], [place]) Address [address] [place] [address] Care Team Providers Care Spectrographic Analyst Name Role Phone Taina Lyles ADRI Primary Care Provider [phone] Encounter Details Date Type Department Care Team (Late st Contact Info) Description 07/01/2021 Transcribed Document [facility] Family Medicine [address] [place] [address] ProviderWilliam MD [address] [place], [place] [address] Social History Tobacco Use Types Packs/Day Years [...] : Low risk (0) [place] Interventions : [place] precautions for safety used Medina Lai RN - 07/01/2021 17:31 EDT Electronically signed by Maddie Meyers Conversion Commercial Loan Administrator Cerner at 03/07/2023 9:46 AM CDT documented in this encounter Plan of Treatment Not on file documented as of this encounter Visit Diagnoses Not on filedocumented in this encounter Care Teams Spectrographic Analyst Relationship Specialty Start Date End Date Taina Lyles, ERECTOR OPERATOR [address] [place] [address] PCP - General Nurse Practitioner 06/15/23 documented as of this encounter
--- OUTSIDE RECORDS SUMMARY | 2025-06-24 09:51 | XMS_ITS | Encounter Summary ---
Author Organization [employer] ([place], [place], [place], [place]) Address [address] [place] [address] Care Team Providers Care Airplane Mechanic Name Role Phone Taina Lyles APRN Primary Care Provider [phone] Encounter Details Date Type Department Care Team (Late st Contact Info) Description 09/09/2020 Transcribed Document [facility] [place] [address] [place] [address] ProviderWilliam MD [address] [place], [place] [id number] Social History Tobacco Use Types Packs/Day Years [...] on filedocumented in this encounter Care Teams Airplane Mechanic Relationship Specialty Start Date End Date Taina Lyles, ADRI [address] [place] [address] PCP - General Nurse Practitioner 06/15/23 documented as of this encounter
--- OUTSIDE RECORDS SUMMARY | 2025-06-24 09:51 | XMS_ITS | Encounter Summary ---
Author Organization [employer] ([place], [place], [place], [place]) Address [address] [place] [address] Care Team Providers Care Automatic Teller Machine Servicer Name Role Phone Taina Lyles APRN Primary Care Provider [phone] Encounter Details Date Type Department Care Team (Late st Contact Info) Description 10/05/[address] [facility] [place] [facility] [place] [address] ProviderWilliam MD [address] [place] [address] Social History Tobacco Use Types Packs/Day Years Used Date Smoking Tobacco: Never Assessed Comments Unknown Sex and Gender Information Value Date Recorded Sex Assigned at Not on file Legal Sex Female 12:21 PM CDT Gender Identity Not on file Sexual Orientation Not on file documented as of this encounter Miscellaneous Notes * Cerner Conversion Note - William Reyes MD - 10/05/2019 3:36 PM GROUND LAYER [address] [address] OPERATIVE REPORT PATIENT IDENTIFICATION: MONIKA ZIMMER (Female - 1960) ACCOUNT / UNIT NUMBER: [id number] / [id number] PRIMARY CARE PHYSICIAN: ERYN PARKINSON APRN PATIENT LOCATION: [facility] ADMIT DATE / TIME: 10/05/19 0723 DISCHARGE DATE / TIME: DICTATED: 10/05/19 1036 by VOLODYMYR VILLARREAL TRANSCRIBED: 10/05/19 1219 by MAIA IMPORTED: 10/05/19 1227 CC: ERYN PARKINSON APRN; VOLODYMYR VILLARREAL\R\ DATE OF PROCEDURE: 10/05/2019 SURGEON: Volodymyr Villarreal MD PREOPERATIVE DIAGNOSES: 1. Mixed incontinence [...] for flow rate and bladder ultrasound PVR. /[id number] Dictated By: VOLODYMYR VILLARREAL E-Signed By: ALDO 1036 1219 [\R\ rep ct labl] [\R\ rep ct ivnm] Medical Disclaimer: This report is to be considered preliminary until reviewed and signed. documented in this encounter Plan of Treatment Not on file documented as of this encounter Visit Diagnoses Not on filedocumented in this encounter Care Teams Automatic Teller Machine Servicer Relationship Specialty Start Date End Date Taina Lyles, ADRI [address] [place] [address] PCP - General Nurse Practitioner 06/15/23 documented as of this encounter
--- OUTSIDE RECORDS SUMMARY | 2025-06-24 09:51 | XMS_ITS | Encounter Summary ---
Author Organization [employer] ([place], [place]) Address [address] [place] [address] Care Team Providers Care Administrative Dietitian Name Role Phone Taina Lyles ADRI Primary Care Provider [phone] Encounter Details Date Type Department Care Team (Late st Contact Info) Description 07/01/2021 Transcribed Document [facility] [place] [address] [place] [address] ProviderWilliam MD [address] [place], [place] [address] Social History Tobacco Use Types Packs/Day Years [...] Reyes MD - 07/01/2021 12:13 PM CDT [place] Suicide Severity Rating Scale (C-SSRS) Entered On: 07/01/2021 17:31 EDT Performed On: 07/01/2021 17:31 EDT by Medina Lai RN [place] Suicide Severity Rating Scale (C-SSRS) CSSRS Past [...] on filedocumented in this encounter Care Teams Administrative Dietitian Relationship Specialty Start Date End Date Taina Lyles, PRESSURE SEALER AND TESTER [address] [place] [address] PCP - General Nurse Practitioner 06/15/23 documented as of this encounter
--- OUTSIDE RECORDS SUMMARY | 2025-06-24 09:51 | XMS_ITS | Encounter Summary ---
Author Organization [facility] ([place], [place], [place], [place]) Address [address] [place] [address] Care Team Providers Care Junior Graphic Designer Name Role Phone Taina Lyles ADRI Primary Care Provider [phone] Encounter Details Date Type Department Care Team (Late st Contact Info) Description 09/09/2020 Transcribed Document [facility] Family Medicine [address] [place] [address] ProviderWilliam MD [address] [place], [place] [id number] Social History Tobacco Use Types Packs/Day Years [...] On: 09/09/2020 12:24 EDT by KEITH TAVERA, INSURANCE AGENCY SALES MANAGER Event Note ED Event Date/Time : 09/09/2020 12:24 EDT ED Event Location : Assigned room ED Event Details : Nursing assessment additional narrative ED Description of Event : pt is up for discharge. has called son to come pickle processor patient KEITH TAVERA, RN - 09/09/2020 12:24 EDT documented in this encounter Plan of Treatment Not on file documented as of this encounter Visit Diagnoses Not on filedocumented in this encounter Care Teams Junior Graphic Designer Relationship Specialty Start Date End Date Taina Lyles, VENEREAL DISEASE INVESTIGATOR [address] [place] [address] PCP - General Nurse Practitioner 06/15/23 documented as of this encounter
--- OUTSIDE RECORDS SUMMARY | 2025-06-24 09:51 | XMS_ITS | Encounter Summary ---
Author Organization [employer] ([place], [place], [place], [place]) Address [address] [place] [address] Care Team Providers Care Log Carrier Operator Name Role Phone Taina Lyles APRN Primary Care Provider [phone] Encounter Details Date Type Department Care Team (Late st Contact Info) Description 09/08/2020 Transcribed Document [facility] [place] [address] [place] [address] ProviderWilliam MD [address] [place], [place] [address] Social History Tobacco Use Types Packs/Day Years [...] & time 09/08/2020 15:30:00, Voice recognition / principal software architect technology used for some documentation in this [...] Tab, Oral, QAM, 30 Tab, 0 Refill(s) [place] 7.5 mg-325 mg oral tablet: 1 Tab, [...] EDT Height Source Estimated Height Entry Format [place] Height/Length, YAKUT (ft) 5 ft Height/Length YAKUT 5 Inch CLINICALHEIGHT 165.1 cm [place] Body Weight 56.59 kg Weight Source, ED Critical estimated dosing weight Weight Entry Format [place] Weight [place] lb 190 lb CLINICALWEIGHT 86.36 kg Body [...] Orders Ordered Blood Pressure: Cardiac Monitoring: ED crate maker: EKG: Place in Observation: Pulse Oximetry Continuous [...] % 41.0 % Lymph # 3.73 K/uL [facility] % 9.5 % [place] # 0.86 K/uL [place] Eos % 2.9 [...] pressure), Interventions hemodynamic management, Case review medical psychotherapist. Performed by: self. Heart Score Heart History: [...] treatment plan, Patient indicated understanding of instructions. Electronically signed by Maddie Meyers Conversion Work And Family Life Consultant Cerner at 03/07/2023 9:59 AM CDT documented in this encounter Plan of Treatment Not on file documented as of this encounter Visit Diagnoses Not on filedocumented in this encounter Care Teams Log Carrier Operator Relationship Specialty Start Date End Date Taina Lyles, ADRI [address] [place] [address] PCP - General Nurse Practitioner 06/15/23 documented as of this encounter
--- OUTSIDE RECORDS SUMMARY | 2025-06-24 09:51 | XMS_ITS | Encounter Summary ---
Author Organization [employer] ([place], [place], [place], [place]) Address [address] [place] [address] Care Team Providers Care Eligibility Technician Name Role Phone Taina Lyles ADRI Primary Care Provider [phone] Encounter Details Date Type Department Care Team (Late st Contact Info) Description 07/01/2021 Transcribed Document [facility] [place] [address] [place] [address] ProviderWilliam MD [address] [place], [place] [address] Social History Tobacco Use Types Packs/Day Years [...] : 3 - Urgent Tracking Group : [facility] ED [facility] LANG WOOD RN [...] Problems(Active) ADD (attention deficit disorder) (SNOMED CT :2867890720 ) Name of Problem: ADD (attention deficit disorder) ; Recorder: AZALEA ALBRIGHT RN; Confirmation: Confirmed ; Classification: Patient Stated ; Code: [id number] ; Contributor System: [employer] ; Last Updated: 01/11/2017 14:23 EST ; Life Cycle Date: 01/11/2017 ; Life Cycle Status: Active ; Vocabulary: SNOMED CT Anxiety (SNOMED CT :0436685500 ) Name of Problem: Anxiety ; Recorder: AZALEA ALBRIGHT RN; Confirmation: Confirmed ; Classification: Patient Stated ; Code: [id number] ; Contributor System: PowerChart ; Last Updated: 01/11/2017 14:22 EST ; Life Cycle Date: 01/11/2017 ; Life Cycle Status: Active ; Vocabulary: SNOMED CT Arthritis (SNOMED CT :0794440 ) Name of Problem: Arthritis ; Recorder: LANNY BELLO RN; Confirmation: Confirmed ; Classification: Medical ; Code: [id number] ; Contributor System: [employer] ; Last Updated: 09/11/2015 14:10 EDT ; Life Cycle Date: 09/11/2015 ; Life Cycle Status: Active ; Vocabulary: SNOMED CT bilateral knee pain (SNOMED CT :14188368 ) Name of Problem: bilateral knee pain ; Recorder: LANNY BELLO RN; Confirmation: Confirmed ; Classification: Medical ; Code: [id number] ; Contributor System: Access ClosureChart ; Last Updated: 08/12/2017 10:18 EDT ; Life Cycle Date: 09/11/2015 ; Life Cycle Status: Active ; Vocabulary: SNOMED CT Chronic depression (SNOMED CT :475782871 ) Name of Problem: Chronic depression ; Recorder: AZALEA ALBRIGHT RN; Confirmation: Confirmed ; Classification: Patient Stated ; Code: [id number] ; Contributor System: Access ClosureChart ; Last Updated: 01/11/2017 14:23 EST ; Life Cycle Date: 01/11/2017 ; Life Cycle Status: Active ; Vocabulary: SNOMED CT Diabetes (SNOMED CT :073130582 ) Name of Problem: Diabetes ; Recorder: LANNY BELLO RN; Confirmation: Confirmed ; Classification: Medical ; Code: [id number] ; Contributor System: PowerChart ; Last Updated: 09/11/2015 14:10 EDT ; Life Cycle Date: 09/11/2015 ; Life Cycle Status: Active ; Vocabulary: SNOMED CT GERD (gastroesophageal reflux disease) (SNOMED CT :366975556 ) Name of Problem: GERD (gastroesophageal reflux disease) ; Recorder: LANNY BELLO RN; Confirmation: Confirmed ; Classification: Medical ; Code: 529586303 ; Contributor System: [employer] ; Last Updated: 09/11/2015 14:11 EDT ; Life Cycle Date: 09/11/2015 ; Life Cycle Status: Active ; Vocabulary: SNOMED CT H/O syncope (SNOMED CT :3241638504 ) Name of Problem: H/O syncope ; Recorder: AZALEA ALBRIGHT RN; Confirmation: Confirmed ; Classification: Patient Stated ; Code: [id number] ; Contributor System: PowerChart ; Last Updated: 01/11/2017 14:29 EST ; Life Cycle Date: 01/11/2017 ; Life Cycle Status: Active ; Vocabulary: SNOMED CT History of recurrent UTIs (SNOMED CT :440744197 ) Name of Problem: History of recurrent UTIs ; Recorder: AZALEA ALBRIGHT RN; Confirmation: Confirmed ; Classification: Patient Stated ; Code: 797280427 ; Contributor System: PowerChart ; Last Updated: 01/11/2017 14:22 EST ; Life Cycle Date: 01/11/2017 ; Life Cycle Status: Active ; Vocabulary: SNOMED CT Hyperlipidemia (SNOMED CT :34495760 ) Name of Problem: Hyperlipidemia ; Recorder: LANNY BELLO RN; Confirmation: Confirmed ; Classification: Medical ; Code: 72606726 ; Contributor System: PowerChart ; Last Updated: 09/11/2015 14:10 EDT ; Life Cycle Date: 09/11/2015 ; Life Cycle Status: Active ; Vocabulary: SNOMED CT Renal insufficiency (SNOMED CT :5585933057 ) Name of Problem: Renal insufficiency ; Recorder: AZALEA ALBRIGHT RN; Confirmation: Confirmed ; Classification: Patient Stated ; Code: 7127174082 ; Contributor System: PowerChart ; Last Updated: 01/11/2017 14:22 EST ; Life Cycle Date: 01/11/2017 ; Life Cycle Status: Active ; Vocabulary: SNOMED CT right carpal tunnel (SNOMED CT :17207641 ) Name of Problem: right carpal tunnel ; Recorder: LANNY BELLO RN; Confirmation: Confirmed ; Classification: Medical ; Code: 62778276 ; Contributor System: PowerChart ; Last Updated: 09/02/2017 10:07 EDT ; Life Cycle Date: 09/11/2015 ; Life Cycle Status: Active ; Vocabulary: SNOMED CT Right tennis elbow (SNOMED CT :8238435279 ) Name of Problem: Right tennis elbow ; Recorder: LANNY BELLO RN; Confirmation: Confirmed ; Classification: Medical ; Code: 5524872387 ; Contributor System: PowerChart ; Last Updated: 05/21/2019 14:33 EDT ; Life Cycle Status: Active ; Vocabulary: SNOMED CT ; Comments: 09/11/2015 14:11 - LANNY BELLO RN recent diagnosis RLS (restless legs syndrome) (SNOMED CT :85337527 ) Name of Problem: RLS (restless legs syndrome) ; Recorder: LANNY BELLO RN; Confirmation: Confirmed ; Classification: Medical ; Code: [id number] ; Contributor System: [employer] ; Last Updated: 09/11/2015 14:33 EDT ; Life Cycle Date: 09/11/2015 ; Life Cycle Status: Active ; Vocabulary: SNOMED CT sleep apnea with Cpap (SNOMED CT :818963515 ) Name of Problem: sleep apnea with Cpap ; Recorder: LANNY BELLO RN; Confirmation: Confirmed ; Classification: Medical ; Code: 025859817 ; Contributor System: [employer] ; Last Updated: 08/12/2017 11:32 EDT ; Life Cycle Date: 09/11/2015 ; Life Cycle Status: Active ; Vocabulary: SNOMED CT Stress incontinence (SNOMED CT :542860075 ) Name of Problem: Stress incontinence ; Recorder: LANNY BELLO RN; Confirmation: Confirmed ; Classification: Medical ; Code: 867838841 ; Contributor System: [employer] ; Last Updated: 09/11/2015 14:12 EDT ; Life Cycle Date: 09/11/2015 ; Life Cycle Status: Active ; Vocabulary: SNOMED CT Diagnoses(Active) Medical screening exam Date: 07/01/2021 ; Diagnosis Type: Reason For Visit ; Confirmation: Complaint of ; Clinical Dx: Medical screening exam ; Classification: Medical ; Clinical Service: Emergency medicine ; Code: PNED ; Probability: 0 ; Diagnosis Code: [id number] ED Height and Weight Height Source : Stated Height Entry Format : [place] Height, Feet : 5 ft(Converted to: 152 cm, 60 Inch) Height, Inches : 6 Inch(Converted to: 0 ft 6 Inch, 15.24 cm) Clinical Height : 167.64 cm Weight Source, ED : Standing scale Weight Entry Format : [place] Weight, Pounds : 203 lb Clinical Dosing Weight : 92.27 kg Body Surface Area (BSA) : 2.01 m2 Body Mass Index : 32.8 kg/m2 (HI) [place] Body Weight (IBW) : 58.88 kg LANG WOOD RN - 07/01/2021 12:30 EDT documented in this encounter Plan of Treatment Not on file documented as of this encounter Visit Diagnoses Not on filedocumented in this encounter Care Teams Eligibility Technician Relationship Specialty Start Date End Date Taina Lyles, ADRI [address] [place] [address] PCP - General Nurse Practitioner 06/15/23 documented as of this encounter
--- OUTSIDE RECORDS SUMMARY | 2025-06-24 09:51 | XMS_ITS | Encounter Summary ---
Author Organization [employer] ([place], [place], [place], [place]) Address [address] [place] [address] Care Team Providers Care Water Treatment Plant Operator Name Role Phone Taina Lyles APRN Primary Care Provider [phone] Encounter Details Date Type Department Care Team (Late st Contact Info) Description 01/23/2019 Transcribed Document [facility] [place] [facility] [address] ProviderWilliam MD [address] [place] [address] Social History Tobacco Use Types Packs/Day Years Used Date Smoking Tobacco: Never Assessed Comments Unknown Sex and Gender Information Value Date Recorded Sex Assigned at Not on file Legal Sex Female 12:21 PM CDT Gender Identity Not on file Sexual Orientation Not on file documented as of this encounter Miscellaneous Notes * Cerner Conversion Note - William Reyes MD - 01/23/2019 5:18 PM COMMUNICATIONS PROJECT LEAD [address] [address] HISTORY AND PHYSICAL PATIENT IDENTIFICATION: MONIKA ZIMMER (Female - 1960) ACCOUNT / UNIT NUMBER: [id number] / [id number] PRIMARY CARE PHYSICIAN: WILMA HOWARD APRN PATIENT LOCATION: [facility] 300-11 ADMIT DATE / TIME: 01/23/19 1051 DISCHARGE DATE / TIME: DICTATED: 01/23/19 1218 by DANIEL DICKERSON TRANSCRIBED: 01/23/19 1343 by PS IMPORTED: 01/23/19 1344 CC: WILMA HOWARD APRN; DANIEL DICKERSON PA-C; GLENN LAWRENCE\R\ [facility] Original Dictated By: MARIA GUADALUPE Hernandez For [...] in bed. She is in observation the [facility] floor under the care of the [...] 0.4 mg sublingual for chest pain. 16. Gilbert 10/325 mg 1-2 tabs q.4 h. as [...] LABORATORIES AND DIAGNOSTICS: Reviewed from 01/08/2019 at [facility] showing a GFR of 57. Normal [...] rep ct ivnm] Electronically signed by Luigi, [facility] Conversion Manager Medical Writing Cerner at 02/21/2023 1:44 PM CDT documented in this encounter Plan of Treatment Not on file documented as of this encounter Visit Diagnoses Not on filedocumented in this encounter Care Teams Water Treatment Plant Operator Relationship Specialty Start Date End Date Taina Lyles, ADRI [address] [place] [address] PCP - General Nurse Practitioner 06/15/23 documented as of this encounter
--- OUTSIDE RECORDS SUMMARY | 2025-06-24 09:51 | XMS_ITS | Encounter Summary ---
Author Organization Healthcare Address [address] [place] [address] Care Team Providers Care Medical Imaging Director Name Role Phone Lea Fernando Unavailable [phone] Rachel Ray ESTHETICIAN/SPA COORDINATOR Unavailable [phone] Alvarez Zimmer MD Primary Care Provider [phone] Tamera Isabel LPN Unavailable Unavailabl e Encounter [...] do you attend [facility] or cheondoism services? Patient unable to answer 01/10/2025 Do you belong to any clubs o r organizations such as scientologist groups, unions, fraternal or athletic groups, or [...] any clubs o r organizations such as scientologist groups, unions, fraternal or athletic groups, or [...] one occasion? Never 06/05/2025 [facility] - [facility]ational [...] drink first t kennedy in the morning (EYE-ENTREPRENEUR) to steady your nerves or to get [...] Appointment [facility] Inter[facility] Radiology [address] [place] [address] 06/27/2025 10:30 AM EDT Appointment [facility] Radiology [address] [place] [address] 07/04/2025 10:30 AM EDT Appointment [facility]iology [address] [place] [address] 07/04/2025 11:30 AM EDT Appointment [facility] Inter[facility] Radiology [address] [place] [address] 07/09/2025 2:40 PM EDT Office Visit [facility] [address], [address] [place] [address] Ar Dominique MD [address] [place] [address] 07/11/2025 10:30 AM EDT Appointment [facility] [address] [place] [address] 07/11/2025 11:30 AM EDT Appointment [facility] [address] [place] [address] 07/18/2025 10:30 AM EDT Appointment [facility] [address] [place] [address] 07/18/2025 11:30 AM EDT Appointment [facility] [address] [place] [address] 07/25/2025 10:30 AM EDT Appointment [facility]iology [address] [place] [address] 07/25/2025 11:30 AM EDT Appointment [facility]iology [address] [place] [address] 07/31/2025 9:00 AM EDT Office Visit [address] [address] Alvarez Zimmer MD [address] [place] [address] 08/20/2025 9:30 AM EDT Clinical Support [facility] [place] [address] [place] [address] 08/20/2025 10:30 AM EDT Social Work [facility] [place] [address] [place] [address] [place] [address] 08/20/2025 11:00 AM EDT Office Visit [facility] [place] [address] [place] [address] Jude Duque MD [address] [place] [address] 10/30/2025 1:20 PM EST Office Visit [facility] Endocrinology [address] [place] [address] Sharif Moreno, ROSY [address] [place] [address] documented as of this encounter [...] as of this encounter Care Teams Medical Imaging Director Relationship Specialty Start Date End Date Alvarez Zimmer MD [address] [place] [address] PCP - General Family Medicine 12/07/24 Lea Fernando [address] [facility] [address] [place] [address] Spring Repairer Helper Hand Endocrinology 08/29/24 Rachel Ray APRN [address] [facility] [address] [place] [address] Nurse Practitioner Gastroenterology 09/24/24 Tamera Isabel LPN VALUE-BASED TRANSFORMATION PROGRAM Licensed Practical Nurse 05/29/25 documented as of this encounter
--- OUTSIDE RECORDS SUMMARY | 2025-06-24 09:51 | XMS_ITS | Encounter Summary ---
Author Organization [employer] ([place], [place], [place], [place]) Address [address] [place] [address] Care Team Providers Care Cigar Bander Name Role Phone Taina Lyles BOTTOM CRANE OPERATOR Primary Care Provider [phone] Encounter Details Date Type Department Care Team (Late st Contact Info) Description 09/08/2020 Transcribed Document [facility] [place] Family Medicine [address] [place] [address] ProviderWilliam MD [address] [place], [place] [address] Social History Tobacco Use Types Packs/Day Years [...] Tab, Oral, QAM, 30 Tab, 0 Refill(s) [place] 7.5 mg-325 mg oral tablet: 1 Tab, [...] list: All Problems Anxiety / SNOMED CT 1311040347 / Confirmed Arthritis / SNOMED CT 0037466 / Confirmed ADD (attention deficit disorder) / SNOMED CT 5395190856 / Confirmed right carpal tunnel / SNOMED CT 23738075 / Confirmed Chronic depression / SNOMED CT 616791249 / Confirmed Diabetes / SNOMED CT 905832459 / Confirmed GERD (gastroesophageal reflux disease) / SNOMED CT 606703373 / Confirmed Stress incontinence / SNOMED CT 307779480 / Confirmed History of recurrent UTIs / SNOMED CT 300543266 / Confirmed H/O syncope / SNOMED CT 4207436237 / Confirmed Hyperlipidemia / SNOMED CT 01346730 / Confirmed bilateral knee pain / SNOMED CT 71890890 / Confirmed Right tennis elbow / SNOMED CT 7598860355 / Confirmed recent diagnosis Renal insufficiency / SNOMED CT 6419276795 / Confirmed RLS (restless legs syndrome) / SNOMED CT 22249192 / Confirmed sleep apnea with Cpap / SNOMED CT 276498130 / Confirmed, Active Problems (16) ADD (attention [...] EDT Height Source Estimated Height Entry Format [place] Height/Length, INDONESIAN (ft) 5 ft Height/Length INDONESIAN 5 Inch CLINICALHEIGHT 165.1 cm [place] Body Weight 56.59 kg Weight Source, ED Critical estimated dosing weight Weight Entry Format Garden Weight Niuean lb 190 lb CLINICALWEIGHT 86.36 kg Body [...] to OP workup Electronically signed by Luigi, [facility] Conversion Exchange Trouble Shooter Cerner at 03/07/2023 9:46 AM CDT documented in this encounter Plan of Treatment Not on file documented as of this encounter Visit Diagnoses Not on filedocumented in this encounter Care Teams Cigar Bander Relationship Specialty Start Date End Date Taina Lyles, BOTTOM CRANE OPERATOR [address] [place] [address] PCP - General Nurse Practitioner 06/15/23 documented as of this encounter
--- OUTSIDE RECORDS SUMMARY | 2025-06-24 09:51 | XMS_ITS | Encounter Summary ---
Author Organization [employer] ([place], [place], [place], [place]) Address [address] [place] [address] Care Team Providers Care Debug Technician Name Role Phone Taina Lyles ADRI Primary Care Provider [phone] Encounter Details Date Type Department Care Team (Late st Contact Info) Description 09/08/2020 Transcribed Document [facility] [place] [address] [place] [address] ProviderWilliam MD [address] [place], [place] [id number] Social History Tobacco Use Types Packs/Day Years [...] Communication Barrier : None Primary Language : Mosotho Any Spiritual/Cultural Needs or Requests : No [...] Rhythm : Regular Nail Bed Color : Klagetoh Angelina Cuello RN - 09/08/2020 17:54 EDT Electronically signed by [facility] Conversion Assistant Restaurant General Manager Cerner at 03/07/2023 9:46 AM CDT documented in this encounter Plan of Treatment Not on file documented as of this encounter Visit Diagnoses Not on filedocumented in this encounter Care Teams Debug Technician Relationship Specialty Start Date End Date Taina Lyles, TRAINING AND DEVELOPMENT COORDINATOR [address] [place] [address] PCP - General Nurse Practitioner 06/15/23 documented as of this encounter
--- OUTSIDE RECORDS SUMMARY | 2025-06-24 09:51 | XMS_ITS | Encounter Summary ---
Author Organization Healthcare Address [address] [place] [address] Care Team Providers Care Cosmetic Sales Consultant Name Role Phone Lea Fernando Unavailable [phone] Rachel Ray HEALTH CONCIERGE Unavailable [phone] Alvarez Zimmer MD Primary Care Provider [phone] Tamera Isabel LPN Unavailable Unavailabl e Encounter Details Date Type Department Care Team (Late st Contact Info) Description 06/23/2025 Orders Only External Location [address] [place] [address] Kandice Maldonado, HEALTH CONCIERGE [address] [place] [address] Social History Tobacco Use Types Packs/Day Years [...] you attend chur ch or gnosticist services? Patient unable to answer 01/10/2025 Do you belong to any clubs o r organizations such as restoration groups, unions, fraternal or athletic groups, or [...] time in the past [address] [facility], were you homeless or living [...] do you attend chur or gnosticist services? Never 05/29/2025 Do you belong to any clubs o r organizations such as restoration groups, unions, fraternal or athletic groups, or [...] occasion? Never 06/05/2025 [facility] Occupational Stress Questionnaire Answer Date [...] time in the past [address] [facility], were you homeless or living [...] drink first t kennedy in the morning (EYE-PROFESSOR OF NURSING) to steady your nerves or to get rid of a hangover? 0 10/22/2024 CAGE Questionnaire Score 0 024 Utilities Answer Date Recorded In the past 12 months has th e [employer], gas, oil, or water company threatened to [...] Upcoming Encounters Date Type Department Care Team ([facility] st Contact Info) Description 06/27/2025 9:30 AM EDT Appointment [facility] Interventional Radiology [address] [place] [address] 06/27/2025 10:30 AM EDT Appointment [facility] Inter[facility] Radiology [address] [place] [address] 07/04/2025 10:30 AM EDT Appointment [facility] Inter[facility] Radiology [address] [place] [address] 07/04/2025 11:30 AM EDT Appointment [facility] Inter[facility] Radiology [address] [place] [address] 07/09/2025 2:40 PM EDT Office Visit [facility] Mineral Met[facility] [address] [facility], [address] [place] [address] Ar Dominique MD [address] [place] [address] 07/11/2025 10:30 AM EDT Appointment [facility] Radiology [address] [place] [address] 07/11/2025 11:30 AM EDT Appointment [facility] Radiology [address] [place] [address] 07/18/2025 10:30 AM EDT Appointment [facility] [address] [place] [address] 07/18/2025 11:30 AM EDT Appointment [facility] [address] [place] [address] 07/25/2025 10:30 AM EDT Appointment [facility] Radiology [address] [place] [address] 07/25/2025 11:30 AM EDT Appointment [facility] Radiology [address] [place] [address] 07/31/2025 9:00 AM EDT Office Visit [facility] [address] [place] [address] Alvarez Zimmer MD [address] [place] [address] 08/20/2025 9:30 AM EDT Clinical Support [facility] [place] [address] [place] [address] 08/20/2025 10:30 AM EDT Social Work [facility] [place] [address] [place] [address] [place] [address] 08/20/2025 11:00 AM EDT Office Visit [facility] [place] [address] [place] [address] Jude Duque MD [address] [place] [address] 10/30/2025 1:20 PM EST Office Visit [facility] Endocrinology [address] [place] [address] Sharif Moreno, DPNicole [address] [place] [address] documented as of this encounter Procedures Procedure Name Priority Date/Time Associated Diagnosis Comments US OUTSIDE IMAGES 06/23/2025 5:29 PM EDT documented in this encounter Results * US OUTSIDE IMAGES (06/23/2025 5:29 PM EDT) Anatomical Region Laterality Modality Ultrasound 06/23/2025 5:29 PM EDT us Kandice Maldonado APRN IMG US PROCEDURES Final Res ult documented in this encounter Visit Diagnoses Not [...] documented as of this encounter Care Teams Cosmetic Sales Consultant Relationship Specialty Start Date End Date Alvarez Zimmer MD [address] [place] [address] PCP - General Family Medicine 12/07/24 Lea Fernando [address] [facility] [address] [place] [address] Twisting Frame Changer Endocrinology 08/29/24 Rachel Ray, HEALTH CONCIERGE [address] [facility] [address] [place] [address] Nurse Practitioner Gastroenterology 09/24/24 Tamera Isabel LPN VALUE-BASED TRANSFORMATION PROGRAM Licensed Practical Nurse 05/29/25 documented as of this encounter
--- OUTSIDE RECORDS SUMMARY | 2025-06-24 09:51 | XMS_ITS | Encounter Summary ---
Author Organization [employer] ([place], [place], [place], [place]) Address [address] [place] [address] Care Team Providers Care Industrial Maintenance Tech Name Role Phone Taina Lyles Carmel RUSH Primary Care Provider [phone] Encounter Details Date Type Department Care Team (Late st Contact Info) Description 09/08/2020 Transcribed Document [facility] [place] Family Medicine [address] [place] [address] ProviderWilliam MD [address] [place], [place] [id number] Social History Tobacco Use Types Packs/Day Years [...] Reyes MD - 09/08/2020 3:25 PM CDT [place] Suicide Severity Rating Scale (C-SSRS) Entered On: 09/08/2020 16:35 EDT Performed On: 09/08/2020 16:31 EDT by Angelina Cuello RN [place] Suicide Severity Rating Scale (C-SSRS) CSSRS Past [...] on filedocumented in this encounter Care Teams Industrial Maintenance Tech Relationship Specialty Start Date End Date Taina Lyles, COVERSTITCH ELASTIC ATTACHER [address] [place] [address] PCP - General Nurse Practitioner 06/15/23 documented as of this encounter
--- OUTSIDE RECORDS SUMMARY | 2025-06-24 09:51 | XMS_ITS | Encounter Summary ---
Author Organization [employer] ([place], [place], [place], [place]) Address [address] [place] [address] Care Team Providers Care Harness Fitter Name Role Phone Taina Lyles APRN Primary Care Provider [phone] Encounter Details Date Type Department Care Team (Late st Contact Info) Description 01/24/2019 Transcribed Document [facility] [place] Family Medicine [facility] [address] ProviderWilliam MD [address] [place] [address] Social History Tobacco Use Types Packs/Day Years Used Date Smoking Tobacco: Never Assessed Comments Unknown Sex and Gender Information Value Date Recorded Sex Assigned at Not on file Legal Sex Female 12:21 PM CDT Gender Identity Not on file Sexual Orientation Not on file documented as of this encounter Miscellaneous Notes * Cerner Conversion Note - William Reyes MD - 01/24/2019 7:43 PM 911 TELECOMMUNIC[address] [address] DISCHARGE SUMMARY PATIENT IDENTIFICATION: MONIKA ZIMMER (Female - 1960) ACCOUNT / UNIT NUMBER: [id number] / [id number] PRIMARY CARE PHYSICIAN: ERYN HOWARD APRN PATIENT LOCATION: [facility] 300-11 ADMIT DATE / TIME: 01/23/19 [...] catheter and to follow up with Dr. Villarreal. Patient's pain is under adequate control for discharge. 2. Type 2 diabetes, on sliding scale protocol this admission. Metformin and U-500 could be resumed on discharge. Continue [place] [employer] diet. 3. Coronary artery disease/dyslipidemia, [...] Tylenol 650 q.4 h. as needed. 2. [place] 10 mg 1-2 tabs q.4 h. as [...] strenuous activity, and follow up with Dr. Villarreal next week for cath removal. The patient on discharge verbalized understanding and is agreeable. TIME SPENT: 30 minutes. Dictated By: DANIEL DICKERSON E-Signed By: AXEL/AMINA [id number] [\R\ rep ct labl] [\R\ rep ct ivnm] documented in this encounter Plan of Treatment Not on file documented as of this encounter Visit Diagnoses Not on filedocumented in this encounter Care Teams Harness Fitter Relationship Specialty Start Date End Date Taina Lyles, EMT INTERMEDIATE [address] [place] [address] PCP - General Nurse Practitioner 06/15/23 documented as of this encounter
--- OUTSIDE RECORDS SUMMARY | 2025-06-24 09:51 | XMS_ITS | Encounter Summary ---
Author Organization [employer] ([place], [place], [place], [place]) Address [address] [place] [address] Care Team Providers Care Raw Stock Machine Loader Name Role Phone Taina Lyles TELECOM BILLING ANALYST Primary Care Provider [phone] Encounter Details Date Type Department Care Team (Late st Contact Info) Description 09/09/[address] [facility] Family Medicine [address] [place] [address] ProviderWilliam MD [address] [place] [address] Social History Tobacco Use Types [...] - 09/09/2020 3:03 PM CDT [place] [id number] MONIKA ZIMMER :1960 Visit Time:09/08/2020 Your Visit [...] 1 week Where: [address] [facility] [address] [place] [address]- Business (1) Follow Up with ERYN PARKINSON When Within 2 to 3 days Where: [address] [place] [address] [facility] (1) Allergies No Known Allergies Immunizations This Visit No Immunizations Found Medications What How Much When Instructions Next Dose isosorbide mononitrate (isosorbide mononitrate 60 mg oral tablet, extended release) 1 Tablet(s) Oral Every Morning Duration: 30 Day(s) Pickup at [facility] albuterol (Ventolin HFA 90 mcg/ [...] oral tablet) Oral At Bedtime Pharmacy Information [facility]: [address] [facility] [place] [phone] The home medications listed are only as [...] range between ( 1.0 and 7.0 ) [place] #: 0.94 K/uL -- Normal range between ( 0.24 and 0.82 ) Eos #: 0.32 K/uL -- Normal range between ( 0.04 and 0.54 ) [place] %: 7.6 % -- Normal range between [...] ) Urine Bilirubin Dipstick: Negative Urine Specific [place]: *1.026 -- Normal range between ( 1.005 and 1.030 ) Microbiology 09/08/2020 8:19 PM Novel Coronavirus 2019: Negative Urine Chemistry 09/08/2020 8:19 PM Osmolality Urine: 662 mOsm/kg -- Normal range between ( 250 and 900 ) Sodium Ur [place]: 127 mMole/Liter General Chemistry 09/09/2020 12:10 PM [...] lot of fat or sugar. ??? Take mxjo-dwa-ygdedrz and prescription medicines only as told by [...] 11/07/2006 Document Revised: 10/20/2018 Document Reviewed: 12/31/2016 [employer] Patient Education ?? 2020 [employer] Angina Angina is extreme discomfort in [...] these instructions at home: Medicines ??? Take qtgo-oas-dfzkvdd and prescription medicines only as told by [...] 11/07/2006 Document Revised: 06/25/2019 Document Reviewed: 06/25/2019 [employer] Patient Education ?? 2020 [employer] Emergency Awareness and Preventative Care STROKE [...] Assistance with quitting is available by contacting 0-494-MWPK-NOW. This is a free resource providing counseling, [...] was given the opportunity to ask questions. Patient/Machinist Tool And Die Name: Patient/Machinist Tool And Die Signature: Relationship to Patient: Clinician/Hospital Machinist Tool And Die Signature: Please Provide a Telephone Number Where You Can Be Reached: Is it Permissible To Leave a Message? Date: documented in this encounter Plan of Treatment Not on file documented as of this encounter Visit Diagnoses Not on filedocumented in this encounter Care Teams Raw Stock Machine Loader Relationship Specialty Start Date End Date Taina Lyles, TELECOM BILLING ANALYST [address] [place] [address] PCP - General Nurse Practitioner 06/15/23 documented as of this encounter
--- OUTSIDE RECORDS SUMMARY | 2025-06-24 09:51 | XMS_ITS | Encounter Summary ---
Author Organization [employer] ([place], [place], [place], [place]) Address [address] [place] [address] Care Team Providers Care Tire Bagger Name Role Phone Taina Lyles STILL CLEANER TUBE Primary Care Provider [phone] Encounter Details Date Type Department Care Team (Late st Contact Info) Description 07/01/2021 Transcribed Document [facility] Family Medicine [facility] [address] ProviderWilliam MD [address] [place], [place] [address]571 Social History Tobacco Use Types Packs/Day Years [...] MD - 07/01/2021 5:10 PM CDT Patient: MONIKA ZIMMER Age: 60 [...] EDT Height Source Stated Height Entry Format [place] Height/Length, AMERICAN (ft) 5 ft Height/Length AMERICAN 6 Inch CLINICALHEIGHT 167.64 cm [place] Body Weight 58.88 kg Weight Source, ED Standing scale Weight Entry Format [place] Weight [place] lb 203 lb CLINICALWEIGHT 92.27 kg Body [...] % LOW Lymph # 1.03 K/uL LOW [place] % 8.2 % [place] # 0.66 K/uL Eos % 6.1 % Eos # 0.49 K/uL Baso % 0.2 % Baso # 0.02 K/uL Slide Review No IG# 0 x10(3)/uL IG% 0 % . Impression and Plan Diagnosis Chest pain - Discharge, Medical Patient is a 60-year-old female with atypical chest pain symptoms. Patient does have a positive troponin and is in sinus tach. Patient admitted to cardiology. documented in this encounter Plan of Treatment Not on file documented as of this encounter Visit Diagnoses Not on filedocumented in this encounter Care Teams Tire Bagger Relationship Specialty Start Date End Date Taina Lyles, ADRI [address] [place] [address] PCP - General Nurse Practitioner 06/15/23 documented as of this encounter
--- OUTSIDE RECORDS SUMMARY | 2025-06-24 09:51 | XMS_ITS | Encounter Summary ---
Author Organization [employer] ([place], [place], [place], [place]) Address [address] [place] [address] Care Team Providers Care Correctional Supervising Cook Name Role Phone Taina Lyles APRN Primary Care Provider Encounter Details Date Type Department Care Team (Late st Contact Info) Description 09/09/2020 Transcribed Document [facility] [address] [place] [address] ProviderWilliam MD [address] [place] [address] Social History Tobacco Use Types Packs/Day Years [...] Reyes MD - 09/09/2020 12:00 PM CDT Electronically signed by [facility] Conversion Legal Support Specialist Cerner at 03/07/2023 9:57 AM CDT documented in this encounter Plan of Treatment Not on file documented as of this encounter Visit Diagnoses Not on filedocumented in this encounter Care Teams Correctional Supervising Cook Relationship Specialty Start Date End Date Taina Lyles APRN [address] [place], [place] [address] [address] PCP - General Nurse Practitioner 06/15/23 documented as of this encounter
--- OUTSIDE RECORDS SUMMARY | 2025-06-24 09:51 | XMS_ITS | Encounter Summary ---
Author Organization [employer] ([place], [place], [place], [place]) Address [address] [place] [address] Care Team Providers Care Director Traffic And Planning Name Role Phone Taina Lyles ADRI Primary Care Provider [phone] Encounter Details Date Type Department Care Team (Late st Contact Info) Description 09/09/2020 Transcribed Document [facility] Family Medicine [address] [place] [address] ProviderWilliam MD [address] [place], [place] [address]111 Social History Tobacco Use Types Packs/Day Years [...] Richelle Rust Rn - 09/09/2020 5:58 EDT documented in this encounter Plan of Treatment Not on file documented as of this encounter Visit Diagnoses Not on filedocumented in this encounter Care Teams Director Traffic And Planning Relationship Specialty Start Date End Date Taina Lyles, PILOT CAPTAIN [address] [place] [address] PCP - General Nurse Practitioner 06/15/23 documented as of this encounter
--- OUTSIDE RECORDS SUMMARY | 2025-06-24 09:51 | XMS_ITS | Encounter Summary ---
Author Organization Healthcare Address [address] [place] [address] Care Team Providers Care Call Center Rn Name Role Phone Lea Fernando Unavailable [phone] Rachel Ray DAIRY BACTERIOLOGIST Unavailable [phone] Alvarez Zimmer MD Primary Care Provider [phone] Tamera Isabel LPN Unavailable Unavailabl e Encounter Details Date Type Department Care Team (Late st Contact Info) Description 06/23/2025 Orders Only External Location [address] [place] [address] Kandice Maldonado, DAIRY BACTERIOLOGIST [address] [place] [address] Social History Tobacco Use Types [...] often do you attend chur ch or christian services? Patient unable to answer 01/10/2025 Do [...] How often do you attend chur or christian services? Never 05/29/2025 Do you belong to [...] Never 06/05/2025 [facility] - Occupational Stress Questionnaire Answer Date [...] first t kennedy in the morning (EYE-ELECTRONIC ENGINEERING DRAFTSPERSON) to steady your nerves or to get rid of a hangover? 0 10/22/2024 CAGE Questionnaire Score 0 024 Utilities Answer Date Recorded In the past 12 months has th e [employer], gas, oil, or water company threatened to [...] Upcoming Encounters Date Type Department Care Team ([facility] st Contact Info) Description 06/27/2025 9:30 AM EDT Appointment [facility] [address] [place] [address] 06/27/2025 10:30 AM EDT Appointment [facility] [address] [place] [address] 07/04/2025 10:30 AM EDT Appointment [facility] [address] [place] [address] 07/04/2025 11:30 AM EDT Appointment [facility] [address] [place] [address] 07/09/2025 2:40 PM EDT Office Visit [facility] Met[facility] [address] [facility], [address] [place] [address] Ar Dominique MD [address] [place] [address] 07/11/2025 10:30 AM EDT Appointment [facility] [address] [place] [address] 07/11/2025 11:30 AM EDT Appointment [facility] [address] [place] [address] 07/18/2025 10:30 AM EDT Appointment [facility] [address] [place] [address] 07/18/2025 11:30 AM EDT Appointment [facility] [address] [place] [address] 07/25/2025 10:30 AM EDT Appointment [facility] [address] [place] [address] 07/25/2025 11:30 AM EDT Appointment [facility] [address] [place] [address] 07/31/2025 9:00 AM EDT [facility] [address] [place] [address] Alvarez Zimmer MD [address] [place] [address] 08/20/2025 9:30 AM EDT Clinical Support [facility] [place] [address] [place] [address] 08/20/2025 10:30 AM EDT Social Work [facility] [place] [address] [place] [address] [place] [address] 08/20/2025 11:00 AM EDT Office Visit [facility] [place] [address] [place] [address] Jude Duque MD [address] [place] [address] 10/30/2025 1:20 PM EST Office [facility] [address] [place] [address] Sharif Moreno, DPNicole [address] [place] [address] documented as of this encounter Procedures Procedure Name Priority Date/Time Associated Diagnosis Comments CT MSK OUTSIDE IMAGES 06/23/2025 6:38 PM EDT documented in this encounter Results * CT MSK OUTSIDE IMAGES (06/23/2025 6:38 PM EDT) Anatomical Region Laterality Modality Computed Tomogra phy 06/23/2025 6:38 PM EDT Kandice Maldonado DAIRY BACTERIOLOGIST IMG CT PROCEDURES Final Res ult documented in this [...] documented as of this encounter Care Teams Call Center Rn Relationship Specialty Start Date End Date Alvarez Zimmer MD [address] [place] [address] PCP - General Family Medicine 12/07/24 Lea Fernando [address] [place] [address] Scoop Filler Endocrinology 08/29/24 Rachel Ray APRN [address] [facility] [address] [place] [address] Nurse Practitioner Gastroenterology 09/24/24 Tamera Isabel LPN VALUE-BASED TRANSFORMATION PROGRAM Licensed Practical Nurse 05/29/25 documented as of this encounter
--- OUTSIDE RECORDS SUMMARY | 2025-06-24 09:51 | XMS_ITS | Encounter Summary ---
Author Organization [employer] ([place], [place], [place], [place]) Address [address] [place] [address] Care Team Providers Care Size Changer Name Role Phone Taina Lyles ADRI Primary Care Provider [phone] Encounter Details Date Type Department Care Team (Late st Contact Info) Description 09/08/2020 Transcribed Document [facility] [place] [address] [place] [address] ProviderWilliam MD [address] [place] [address] Social History Tobacco Use Types [...] on filedocumented in this encounter Care Teams Size Changer Relationship Specialty Start Date End Date Taina Lyles, BIOCHEMICAL ENGINEER [address] [place] [address] PCP - General Nurse Practitioner 06/15/23 documented as of this encounter
--- OUTSIDE RECORDS SUMMARY | 2025-06-24 09:51 | XMS_ITS | Encounter Summary ---
Author Organization [employer] ([place], [place], [place], [place]) Address [address] [place] [address] Care Team Providers Care Distribution Technician Name Role Phone Taina Lyles ADRI Primary Care Provider [phone] Encounter Details Date Type Department Care Team (Late st Contact Info) Description 09/08/2020 Transcribed Document [facility] Family Medicine [address] [place] [address] ProviderWilliam MD [address] [place], [place] [address] Social History Tobacco Use Types Packs/Day Years [...] on filedocumented in this encounter Care Teams Distribution Technician Relationship Specialty Start Date End Date Taina Lyles, DRAGLINE OPERATOR [address] [place] [address] PCP - General Nurse Practitioner 06/15/23 documented as of this encounter
--- OUTSIDE RECORDS SUMMARY | 2025-06-24 09:51 | XMS_ITS | Encounter Summary ---
Author Organization [employer] ([place], [place], [place], [place]) Address [address] [place] [address] Care Team Providers Care Deputy Chief Executive Name Role Phone Taina Lyles ADRI Primary Care Provider [phone] Encounter Details Date Type Department Care Team (Late st Contact Info) Description 05/01/2019 Transcribed Document [facility] Family Medicine [address] [place] [address] ProviderWilliam MD [address] [place] [address] Social History Tobacco Use Types Packs/Day Years [...] moderate sleepiness and scores 16/24 in the Rena Lara Sleepiness Scale. She does have insomnia for which she is using trazodone with good benefit. OTHER MEDICAL PROBLEMS: Include diabetes mellitus, obesity, and depression. MEDICATIONS: 1. Azelastine. 2. Magnesium. 3. Bupropion. 4. Venlafaxine. 5. Multivitamin. 6. Ranitidine. 7. Carvedilol. 8. Oxybutynin. 9. Plaquenil. 10. Humulin R. 11. Baclofen. 12. Keiser. 13. Prednisone. 14. Atorvastatin. 15. Humulin. 16. Nitrostat. PHYSICAL EXAMINATION: GENERAL: Ms. Zimmer is a pleasant woman, in no distress. [...] Amol Villarreal M.D. CC2: Dr. Wilma Howard Electronically signed by Luigi [facility] Conversion Technician Cerner at 03/07/2023 9:43 AM CDT documented in this encounter Plan of Treatment Not on file documented as of this encounter Visit Diagnoses Not on filedocumented in this encounter Care Teams Deputy Chief Executive Relationship Specialty Start Date End Date Taina Lyles, WINDOW TREATMENT INSTALLER [address] [place] [address] PCP - General Nurse Practitioner 06/15/23 documented as of this encounter
--- OUTSIDE RECORDS SUMMARY | 2025-06-24 09:51 | XMS_ITS | Encounter Summary ---
Author Organization [employer] ([place], [place], [place], [place]) Address [address] [place] [address] Care Team Providers Care Intramural Director Name Role Phone Taina Lyles APRN Primary Care Provider [phone] Encounter Details Date Type Department Care Team (Late st Contact Info) Description 09/09/2020 Transcribed Document [facility] [place] [address] [place] [address] ProviderWilliam MD [address] [place], [place] [id number] Social History Tobacco Use Types Packs/Day Years [...] on filedocumented in this encounter Care Teams Intramural Director Relationship Specialty Start Date End Date Zetter, Taina J, COLLEGE OR UNIVERSITY BUSINESS MANAGER [address] [place] [address] PCP - General Nurse Practitioner 06/15/23 documented as of this encounter
--- OUTSIDE RECORDS SUMMARY | 2025-06-24 09:51 | XMS_ITS | Encounter Summary ---
Author Organization Healthcare Address [address] [place] [address] Care Team Providers Care Log Chipper Operator Name Role Phone Lea Fernando Unavailable [phone] Rachel Ray WEB PRESS JOGGER Unavailable [phone] Alvarez Zimmer MD Primary Care Provider [phone] Tamera Isabel LPN Unavailable Unavailabl e Encounter Details Date Type Department Care Team (Late st Contact Info) Description 06/23/2025 Orders Only External Location [address] [place] [address] Kandice Maldonado, WEB PRESS JOGGER [address] [place] [address] Social History Tobacco Use Types [...] Never 06/05/2025 [facility] - Occupational Stress Questionnaire [...] drink first t kennedy in the morning (EYE-OCCUPATIONAL WORK EXPERIENCE TEACHER) to steady your nerves or to get rid of a hangover? 0 10/22/2024 CAGE Questionnaire Score 0 024 Utilities Answer Date Recorded In the past 12 months has th e [employer], gas, oil, or water company threatened to [...] Upcoming Encounters Date Type Department Care Team ([facility] st Contact Info) Description 06/27/2025 9:30 AM EDT Appointment [facility] [address] [place] [address] 06/27/2025 10:30 AM EDT Appointment [facility] [address] [place] [address] 07/04/2025 10:30 AM EDT Appointment [facility] [address] [place] [address] 07/04/2025 11:30 AM EDT Appointment [facility] [address] [place] [address] 07/09/2025 2:40 PM EDT Office Visit [facility] Bone & Mineral Metabolism [address] [facility], [address] [place] [address] Ar Dominique MD [address] [place] [address] 07/11/2025 10:30 AM EDT Appointment [facility] [address] [place] [address] 07/11/2025 11:30 AM EDT Appointment [facility] [address] [place] [address] 07/18/2025 10:30 AM EDT Appointment [facility] [address] [place] [address] 07/18/2025 11:30 AM EDT Appointment [facility] [address] [place] [address] 07/25/2025 10:30 AM EDT Appointment [facility] [address] [place] [address] 07/25/2025 11:30 AM EDT Appointment [facility] [address] [place] [address] 07/31/2025 9:00 AM EDT Office Visit [facility] [address] [place] [address] Alvarez Zimmer MD [address] [place] [address] 08/20/2025 9:30 AM EDT Clinical Support [facility] [place] [address] [place] [address] 08/20/2025 10:30 AM EDT Social Work [facility] [place] [address] [place] [address] [place] [address] 08/20/2025 11:00 AM EDT Office Visit [facility] [place] [address] [place] [address] Jude Duque MD [address] [place] [address] 10/30/2025 1:20 PM EST Office Visit [facility] Endocrinology [address] [place] [address] Sharif Moreno, DPNicole [address] [place] [address] documented as of this encounter Procedures Procedure Name Priority Date/Time Associated Diagnosis Comments XR OUTSIDE IMAGES 06/23/2025 5:56 PM EDT documented in this encounter Results * XR OUTSIDE IMAGES (06/23/2025 5:56 PM EDT) Anatomical Region Laterality Modality Radiographic [place] ging 06/23/2025 5:56 PM EDT Kandice Maldonado WEB PRESS JOGGER IMG XR PROCEDURES Final Res ult documented in this [...] documented as of this encounter Care Teams Log Chipper Operator Relationship Specialty Start Date End Date Alvarez Zimmer MD [address] [place] [address] PCP - General Family Medicine 12/07/24 Lea Fernando [address] [place] [address] Appliance Technician Endocrinology 08/29/24 Rcahel Ray, WEB PRESS JOGGER [address] [facility] [address] [place] [address] Nurse Practitioner Gastroenterology 09/24/24 Tamera Isabel LPN VALUE-BASED TRANSFORMATION PROGRAM Licensed Practical Nurse 05/29/25 documented as of this encounter
--- OUTSIDE RECORDS SUMMARY | 2025-06-24 09:51 | XMS_ITS | Encounter Summary ---
Author Organization [employer] ([place], [place], [place], [place]) Address [address] [place] [address] Care Team Providers Care Barrel And Receiver Aligner Name Role Phone Taina Lyles POKER DEALER Primary Care Provider [phone] Encounter Details Date Type Department Care Team (Late st Contact Info) Description 07/01/2021 Transcribed Document [facility] [place] [address] [place] [address] ProviderWilliam MD [address] [place], [place] [address] Social History Tobacco Use Types Packs/Day Years [...] Communication Barrier : None Primary Language : Puerto Rican Any Spiritual/Cultural Needs or Requests : No [...] on filedocumented in this encounter Care Teams Barrel And Receiver Aligner Relationship Specialty Start Date End Date Taina Lyles, POKER DEALER [address] [place] [address] PCP - General Nurse Practitioner 06/15/23 documented as of this encounter
--- OUTSIDE RECORDS SUMMARY | 2025-06-24 09:51 | XMS_ITS | Encounter Summary ---
Author Organization [employer] ([place], [place], [place], [place]) Address [address] [place] [address] Care Team Providers Care Range Master Name Role Phone Taina Lyles ADRI Primary Care Provider [phone] Encounter Details Date Type Department Care Team (Late st Contact Info) Description 09/09/2020 Transcribed Document [facility] [place] [address] [place] [address] ProviderWilliam MD [address] [place], [place] [address] Social History Tobacco Use Types Packs/Day Years [...] On: 09/09/2020 15:08 EDT by KEITH TAVERA, VIDEO TAPE EDITOR Event Note ED Event Date/Time : 09/09/2020 [...] on filedocumented in this encounter Care Teams Range Master Relationship Specialty Start Date End Date Taina Lyles, CRANE CHASER [address] [place] [address] PCP - General Nurse Practitioner 06/15/23 documented as of this encounter
--- OUTSIDE RECORDS SUMMARY | 2025-06-24 09:51 | XMS_ITS | Encounter Summary ---
Author Organization [employer] ([place], [place]) Address [address] [place] [address] Care Team Providers Care High [employer] Social Studies Teacher Name Role Phone Taina Lyles ADRI Primary Care Provider [phone] Encounter Details Date Type Department Care Team (Late st Contact Info) Description 09/11/2020 Transcribed Document [facility] [place] Family Medicine [address] [place] [address] ProviderWilliam MD [address] [place], [place] [id number] Social History Tobacco Use Types Packs/Day Years [...] IOANA MEDINA RN - 09/11/2020 10:40 EDT Electronically signed by Maddie Meyers Conversion Senior Construction Estimator Cerner at 03/07/2023 9:50 AM CDT documented in this encounter Plan of Treatment Not on file documented as of this encounter Visit Diagnoses Not on filedocumented in this encounter Care Teams High School Social Studies Teacher Relationship Specialty Start Date End Date Taina Lyles, PILOT FUEL ENGINEER [address] [place] [address] PCP - General Nurse Practitioner 06/15/23 documented as of this encounter
--- OUTSIDE RECORDS SUMMARY | 2025-06-24 09:51 | XMS_ITS | Encounter Summary ---
Author Organization Healthcare Address [address] [place] [address] Care Team Providers Care System Controller Name Role Phone Lea Fernando Unavailable [phone] Rachel Ray OPERATING ROOM SURGICAL TECHNOLOGIST Unavailable [phone] Alvarez Zimmer MD Primary Care Provider [phone] Tamera Isabel LPN Unavailable Unavailabl e Encounter [...] often do you attend [facility] or jainism services? Patient unable to answer 01/10/2025 Do you belong to any clubs o r organizations such as zoroastrianism groups, unions, fraternal or athletic groups, or [...] any clubs o r organizations such as zoroastrianism groups, unions, fraternal or athletic groups, or [...] drinks on one occasion? Never 06/05/2025 [facility] - Occupational Stress Questionnaire [...] drink first t kennedy in the morning (EYE-FIBERGLASS QUALITY TECHNICIAN) to steady your nerves or to [...] Appointment [facility] Inter[facility]iology [address] [place] [address] 06/27/2025 10:30 AM EDT Appointment [facility] [address] [place] [address] 07/04/2025 10:30 AM EDT Appointment [facility] [address] [place] [address] 07/04/2025 11:30 AM EDT Appointment [facility] Radiology [address] [place] [address] 07/09/2025 2:40 PM EDT Office Visit Professional [facility] Mineral Metabolism [address], [address] [place] [address] Ar Dominique MD [address] [place] [address] 07/11/2025 10:30 AM EDT Appointment [facility]iology [address] [place] [address] 07/11/2025 11:30 AM EDT Appointment [facility] [address] [place] [address] 07/18/2025 10:30 AM EDT Appointment [facility] [address] [place] [address] 07/18/2025 11:30 AM EDT Appointment [facility] [address] [place] [address] 07/25/2025 10:30 AM EDT Appointment [facility] [address] [place] [address] 07/25/2025 11:30 AM EDT Appointment [facility] Inter[facility] Radiology [address] [place] [address] 07/31/2025 9:00 AM EDT Office Visit [facility] [address] [place] [address] Alvarez Zimmer MD [address] [place] [address] 08/20/2025 9:30 AM EDT Clinical Support [facility] [place] [address] [place] [address] 08/20/2025 10:30 AM EDT Social Work [facility] [place] [address] [place] [address] Deysi Ortega [place], [place] [id number] 08/20/2025 11:00 AM EDT Office Visit [facility] [place] [address] [place] [address] Jude Duque MD [address] [place] [address] 10/30/2025 1:20 PM EST Office Visit [facility] [address] [place] [address] Sharif Moreno, DPM [address] [place] [address] documented as of this encounter [...] documented as of this encounter Care Teams System Controller Relationship Specialty Start Date End Date Alvarez Zimmer MD [address] [place] [address] PCP - General Family Medicine 12/07/24 Lea Fernando [address] [facility] [address] [place] [address] Reinforcing Iron And Rebar Workers Endocrinology 08/29/24 Rachel Ray APRN [address] [place] [address] Nurse Practitioner Gastroenterology 09/24/24 Tamera Isabel LPN VALUE-BASED TRANSFORMATION PROGRAM Licensed Practical Nurse 05/29/25 documented as of this encounter
--- OUTSIDE RECORDS SUMMARY | 2025-06-24 09:51 | XMS_ITS | Encounter Summary ---
Author Organization [employer] ([place], [place], [place], [place]) Address [address] [place] [address] Care Team Providers Care Molder Machine Tender Name Role Phone Taina Lyles ADRI Primary Care Provider [phone] Encounter Details Date Type Department Care Team (Late st Contact Info) Description 09/08/2020 Transcribed Document [facility] [place] [address] [place] [address] ProviderWilliam MD [address] [place], [place] [id number] Social History Tobacco Use Types Packs/Day Years [...] On: 09/08/2020 15:26 EDT by RUSTY HART ELECTRICAL AND RADIO AIRCRAFT MECHANIC Triage Across the Room Chief Complaint : Pt reports Discomfront in chest that began yesterday states tingling in left arm Triage Date/Time : 09/08/2020 15:26 EDT RUSTY HART RN - 09/08/2020 15:26 EDT DCP GENERIC CODE Tracking Acuity : 2 - Emergent Tracking Group : [facility] RUSTY HART RN - [...] Problems(Active) ADD (attention deficit disorder) (SNOMED CT :7577660199 ) Name of Problem: ADD (attention deficit disorder) ; Recorder: AZALEA ALBRIGHT RN; Confirmation: Confirmed ; Classification: Patient Stated ; Code: 9867867887 ; Contributor System: Hello Curry ; Last Updated: 01/11/2017 14:23 EST ; Life Cycle Date: 01/11/2017 ; Life Cycle Status: Active ; Vocabulary: SNOMED CT Anxiety (SNOMED CT :7188612458 ) Name of Problem: Anxiety ; Recorder: AZALEA ALBRIGHT RN; Confirmation: Confirmed ; Classification: Patient Stated ; Code: 8699126793 ; Contributor System: Hello Curry ; Last Updated: 01/11/2017 14:22 EST ; Life Cycle Date: 01/11/2017 ; Life Cycle Status: Active ; Vocabulary: SNOMED CT Arthritis (SNOMED CT :4235385 ) Name of Problem: Arthritis ; Recorder: LANNY BELLO RN; Confirmation: Confirmed ; Classification: Medical ; Code: 0559454 ; Contributor System: 360TChart ; Last Updated: 09/11/2015 14:10 EDT ; Life Cycle Date: 09/11/2015 ; Life Cycle Status: Active ; Vocabulary: SNOMED CT bilateral knee pain (SNOMED CT :80495425 ) Name of Problem: bilateral knee pain ; Recorder: LANNY BELLO RN; Confirmation: Confirmed ; Classification: Medical ; Code: 17752081 ; Contributor System: 360TChart ; Last Updated: 08/12/2017 10:18 EDT ; Life Cycle Date: 09/11/2015 ; Life Cycle Status: Active ; Vocabulary: SNOMED CT Chronic depression (SNOMED CT :339845658 ) Name of Problem: Chronic depression ; Recorder: AZALEA ALBRIGHT RN; Confirmation: Confirmed ; Classification: Patient Stated ; Code: 519111172 ; Contributor System: PowerChart ; Last Updated: 01/11/2017 14:23 EST ; Life Cycle Date: 01/11/2017 ; Life Cycle Status: Active ; Vocabulary: SNOMED CT Diabetes (SNOMED CT :320044227 ) Name of Problem: Diabetes ; Recorder: LANNY BELLO RN; Confirmation: Confirmed ; Classification: Medical ; Code: 198559233 ; Contributor System: 360TChart ; Last Updated: 09/11/2015 14:10 EDT ; Life Cycle Date: 09/11/2015 ; Life Cycle Status: Active ; Vocabulary: SNOMED CT GERD (gastroesophageal reflux disease) (SNOMED CT :979562834 ) Name of Problem: GERD (gastroesophageal reflux disease) ; Recorder: LANNY BELLO RN; Confirmation: Confirmed ; Classification: Medical ; Code: 837423300 ; Contributor System: 360TChart ; Last Updated: 09/11/2015 14:11 EDT ; Life Cycle Date: 09/11/2015 ; Life Cycle Status: Active ; Vocabulary: SNOMED CT H/O syncope (SNOMED CT :6268221758 ) Name of Problem: H/O syncope ; Recorder: AZALEA ALBRIGHT RN; Confirmation: Confirmed ; Classification: Patient Stated ; Code: 5995231831 ; Contributor System: PowerChart ; Last Updated: 01/11/2017 14:29 EST ; Life Cycle Date: 01/11/2017 ; Life Cycle Status: Active ; Vocabulary: SNOMED CT History of recurrent UTIs (SNOMED CT :141189227 ) Name of Problem: History of recurrent UTIs ; Recorder: AZALEA ALBRIGHT RN; Confirmation: Confirmed ; Classification: Patient Stated ; Code: 771419579 ; Contributor System: PowerChart ; Last Updated: 01/11/2017 14:22 EST ; Life Cycle Date: 01/11/2017 ; Life Cycle Status: Active ; Vocabulary: SNOMED CT Hyperlipidemia (SNOMED CT :52637886 ) Name of Problem: Hyperlipidemia ; Recorder: LANNY BELLO RN; Confirmation: Confirmed ; Classification: Medical ; Code: 27230100 ; Contributor System: 360TChart ; Last Updated: 09/11/2015 14:10 EDT ; Life Cycle Date: 09/11/2015 ; Life Cycle Status: Active ; Vocabulary: SNOMED CT Renal insufficiency (SNOMED CT :1553312750 ) Name of Problem: Renal insufficiency ; Recorder: AZALEA ALBRIGHT RN; Confirmation: Confirmed ; Classification: Patient Stated ; Code: 2587309403 ; Contributor System: PowerChart ; Last Updated: 01/11/2017 14:22 EST ; Life Cycle Date: 01/11/2017 ; Life Cycle Status: Active ; Vocabulary: SNOMED CT right carpal tunnel (SNOMED CT :17374074 ) Name of Problem: right carpal tunnel ; Recorder: LANNY BELLO RN; Confirmation: Confirmed ; Classification: Medical ; Code: 58095444 ; Contributor System: PowerChart ; Last Updated: 09/02/2017 10:07 EDT ; Life Cycle Date: 09/11/2015 ; Life Cycle Status: Active ; Vocabulary: SNOMED CT Right tennis elbow (SNOMED CT :5008185623 ) Name of Problem: Right tennis elbow ; Recorder: LANNY BELLO RN; Confirmation: Confirmed ; Classification: Medical ; Code: 7857297502 ; Contributor System: PowerChart ; Last Updated: 05/21/2019 14:33 EDT ; Life Cycle Status: Active ; Vocabulary: SNOMED CT ; Comments: 09/11/2015 14:11 - LANNY BELLO RN recent diagnosis RLS (restless legs syndrome) (SNOMED CT :19105157 ) Name of Problem: RLS (restless legs syndrome) ; Recorder: LANNY BELLO RN; Confirmation: Confirmed ; Classification: Medical ; Code: 43211725 ; Contributor System: PowerChart ; Last Updated: 09/11/2015 14:33 EDT ; Life Cycle Date: 09/11/2015 ; Life Cycle Status: Active ; Vocabulary: SNOMED CT sleep apnea with Cpap (SNOMED CT :595337333 ) Name of Problem: sleep apnea with Cpap ; Recorder: LANNY BELLO RN; Confirmation: Confirmed ; Classification: Medical ; Code: 842492556 ; Contributor System: 360TChart ; Last Updated: 08/12/2017 11:32 EDT ; Life Cycle Date: 09/11/2015 ; Life Cycle Status: Active ; Vocabulary: SNOMED CT Stress incontinence (SNOMED CT :207369389 ) Name of Problem: Stress incontinence ; Recorder: LANNY BELLO RN; Confirmation: Confirmed ; Classification: Medical ; Code: 989418842 ; Contributor System: PowerChart ; Last Updated: 09/11/2015 14:12 EDT ; Life Cycle Date: 09/11/2015 ; Life Cycle Status: Active ; Vocabulary: SNOMED CT Diagnoses(Active) Chest pain Date: 09/08/2020 ; Diagnosis Type: Reason For Visit ; Confirmation: Complaint of ; Clinical Dx: Chest pain ; Classification: Medical ; Clinical Service: Emergency medicine ; Code: PNED ; Probability: 0 ; Diagnosis Code: [id number] ED Height and Weight Height Source : Estimated Height Entry Format : Logan Height, Feet : 5 ft(Converted to: 152 cm, 60 Inch) Height, Inches : 5 Inch(Converted to: 0 ft 5 Inch, 12.70 cm) Clinical Height : 165.1 cm Weight Source, ED : Critical estimated dosing weight Weight Entry Format : Logan Weight, Pounds : 190 lb Clinical Dosing Weight : 86.36 kg Body Surface Area (BSA) : 1.94 m2 Body Mass Index : 31.7 kg/m2 (HI) Council Body Weight (IBW) : 56.59 kg RUSTY HART, RN - 09/08/2020 15:26 EDT documented in this encounter Plan of Treatment Not on file documented as of this encounter Visit Diagnoses Not on filedocumented in this encounter Care Teams Molder Machine Tender Relationship Specialty Start Date End Date Taina Lyles, STAFF ASSISTANT [address] [place] [address] PCP - General Nurse Practitioner 06/15/23 documented as of this encounter
--- OUTSIDE RECORDS SUMMARY | 2025-06-24 09:51 | XMS_ITS | Encounter Summary ---
Author Organization Healthcare Address [address] [place] [address] Care Team Providers Care Siding Applicator Name Role Phone Lea Fernando Unavailable [phone] Rachel Ray HEALTH AND SAFETY DIRECTOR Unavailable [phone] Taina Lyles APRN Primary Care Provider [phone] Monique Tapia AUTO COLLISION REPAIR INSTRUCTOR Unavailable Unavailable Alvarez Zimmer MD Primary Care Provider [phone] Shaniqua Trevino AUTO COLLISION REPAIR INSTRUCTOR Unavailable Unavailable Tamera Isabel AUTO COLLISION REPAIR INSTRUCTOR Unavailable Unavailabl e Encounter Details Date Type Department Care Team (Late st Contact Info) Description 10/24/2024 Ophth Exam [facility] [address] [place] [address] Serene Barragan MD [address] [place] [address] Social History Tobacco Use Types [...] and Family Not on file 10/16/2024 Attends [employer] Services Not on file 10/16 Active Member [...] in a correction (including now)? Yes 08/29/2024 Housing Stability Vital Sign Answer Rajesh e Recorded In the last 12 months, was t here a time when you were not able to pay the mortgage or rent on time? No 10/16/2024 In the past 12 months, how m any times have you moved where you were living? 1 10/16/2024 At any time in the [facility], were you homeless or living in a correction (including now)? No 10/16/2024 CAGE ASSESSMENT Answer [...] drink first t kennedy in the morning (EYE-NURSE LDR) to steady your nerves or to get [...] Appointment [facility] Inter[facility] Radiology [address] [place] [address] 06/27/2025 10:30 AM EDT Appointment [facility] Radiology [address] [place] [address] 07/04/2025 10:30 AM EDT Appointment [facility]iology [address] [place] [address] 07/04/2025 11:30 AM EDT Appointment [facility] Interventional Radiology [address] [place] [address] 07/09/2025 2:40 PM EDT Office Visit [facility] Mineral Metabolism [address], [address] [place] [address] Ar Dominique MD [address] [place] [address] 07/11/2025 10:30 AM EDT Appointment [facility] Inter[facility] Radiology [address] [place] [address] 07/11/2025 11:30 AM EDT Appointment [facility] Inter[facility] Radiology [address] [place] [address] 07/18/2025 10:30 AM EDT Appointment [facility] Inter[facility] Radiology [address] [place] [address] 07/18/2025 11:30 AM EDT Appointment [facility] Inter[facility] Radiology [address] [place] [address] 07/25/2025 10:30 AM EDT Appointment [facility] Radiology [address] [place] [address] 07/25/2025 11:30 AM EDT Appointment [facility] Inter[facility] Radiology [address] [place] [address] 07/31/2025 9:00 AM EDT Office Visit [address] [address] Alvarez Zimmer MD [address] [place] [address] 08/20/2025 9:30 AM EDT Clinical Support [facility] [address] [place] [address] 08/20/2025 10:30 AM EDT Social Work [facility] [address] [place] [address] [place] [address] 08/20/2025 11:00 AM EDT Office Visit [facility] [address] [place] [address] Jude Duque MD [address] [place] [address] 10/30/2025 1:20 PM EST [facility] [address] [place] [address] Sharif Moreno, DPM [address] [place] [address] documented as of this encounter [...] documented as of this encounter Care Teams Siding Applicator Relationship Specialty Start Date End Date Taina Lyles, ADRI [address] [place] [address] [place] [address] PCP - General 10/01/24 12/06/24 Alvarez Zimmer MD [address] [place] [phone] PCP - General Family Medicine 12/07/24 Lea Fernando [address] [facility] [address] [place] [address] Project Management Manager Endocrinology 08/29/24 Rachel Ray APRN [address] [facility] [address] [place] [address] Nurse Practitioner Gastroenterology 09/24/24 Monique Tapia LPN VALUE-BASED [place] [address] TCM Nurse 11/28/24 12/28/24 Shaniqua Trevino LPN TCM Nurse 01/15/25 02/14/25 Tamera Isabel LPN VALUE-BASED TRANSFORMATION PROGRAM Licensed Practical Nurse 05/29/25 documented as of this encounter
--- OUTSIDE RECORDS SUMMARY | 2025-06-24 09:51 | XMS_ITS | Encounter Summary ---
Author Organization [employer] ([place], [place], [place], [place]) Address [address] [place] [address] Care Team Providers Care Thermometer Production Worker Name Role Phone Taina Lyles APRN Primary Care Provider [phone] Encounter Details Date Type Department Care Team (Late st Contact Info) Description 01/23/2019 Transcribed Document [facility] [place] [address] ProviderWilliam MD [address] [place], [place] [address] Social History Tobacco Use Types Packs/Day Years Used Date Smoking Tobacco: Never Assessed Comments Unknown Sex and Gender Information Value Date Recorded Sex Assigned at Not on file Legal Sex Female 12:21 PM CDT Gender Identity Not on file Sexual Orientation Not on file documented as of this encounter Miscellaneous Notes * Cerner Conversion Note - William Reyes MD - 01/23/2019 2:56 PM PRODUCTION CONTROL COORDINATOR [address] [address] OPERATIVE REPORT PATIENT IDENTIFICATION: MONIKA ZIMMER (Female - 1960) ACCOUNT / UNIT NUMBER: [id number] / [id number] PRIMARY CARE PHYSICIAN: ERYN PARKINSON APRN PATIENT LOCATION: [facility] 300-11 ADMIT DATE / TIME: 01/23/19 1051 DISCHARGE DATE / TIME: DICTATED: 01/23/19 0956 by VOLODYMYR VILLARREAL TRANSCRIBED: 01/23/19 1107 by PS IMPORTED: 01/23/19 1108 CC: ERYN PARKINSON APRN; FRANK LI; VOLODYMYR VILLARREAL\R\ [facility] Original DATE OF PROCEDURE: 01/23/2019 PREOPERATIVE DIAGNOSIS(ES): [...] [\R\ rep ct ivnm] Electronically signed by Luigi [facility] Conversion Press Box Custodian Cerner at 02/21/2023 1:44 PM CDT documented in this encounter Plan of Treatment Not on file documented as of this encounter Visit Diagnoses Not on filedocumented in this encounter Care Teams Thermometer Production Worker Relationship Specialty Start Date End Date Taina Lyles APRN [address] [place] [address] PCP - General Nurse Practitioner 06/15/23 documented as of this encounter
--- OUTSIDE RECORDS SUMMARY | 2025-06-24 09:51 | XMS_ITS | Encounter Summary ---
Author Organization [employer] ([place], [place], [place], [place]) Address [address] [place] [address] Care Team Providers Care Professor Of Poultry Science Name Role Phone Taina Lyles ADRI Primary Care Provider [phone] Encounter Details Date Type Department Care Team (Late st Contact Info) Description 09/09/2020 Transcribed Document [facility] [place] [address] [place] [address] ProviderWilliam MD [address] [place] [address] Social History Tobacco Use Types Packs/Day Years [...] On: 09/09/2020 15:09 EDT by KEITH TAVERA hose tester Process Patient Disposition : Discharge Personal Belongings [...] on filedocumented in this encounter Care Teams Professor Of Poultry Science Relationship Specialty Start Date End Date Taina Lyles, ADRI [address] [place] [address] PCP - General Nurse Practitioner 06/15/23 documented as of this encounter
--- OUTSIDE RECORDS SUMMARY | 2025-06-24 09:52 | XMS_ITS | Encounter Summary ---
Author Organization [facility] Address [address] [place] [address] Care Team Providers Care Channel Marketing Program Manager Name Role Phone AyahTor Lea Clarke Unavailable [phone] Rachel Ray ENVIRONMENTAL ENGINEERING MANAGER Unavailable [phone] Alvarez Zimmer MD Primary Care Provider [phone] Tamera Isabel ELECTRICAL SOFTWARE ENGINEER Unavailable Unavailabl e Reason for Visit * Reason Onset Date Comments Med Refill 04/19/2025 Encounter Details Date Type Department Care Team (Late st Contact Info) Description 04/19/2025 Refill [facility] [address] [place] [address] Alvarez Zimmer MD [address] [place] [address] Social History Tobacco Use Types [...] week 01/10/2025 How often do you attend [facility] or restoration services? Patient unable to answer 01/10/2025 Do [...] Recorded Patient Health Questionnaire-2 Score 2 04/10/2025 [facility]at ional [...] drink first t kennedy in the morning (EYE-HOUSE CLEANER) to steady your nerves or to get [...] Upcoming Encounters Date Type Department Care Team ([facility] st Contact Info) Description 06/27/2025 9:30 AM EDT Appointment [facility] [address] [place] [address] 06/27/2025 10:30 AM EDT Appointment [facility] [address] [place] [address] 07/04/2025 10:30 AM EDT Appointment [facility] [address] [place] [address] 07/04/2025 11:30 AM EDT Appointment [facility] [address] [place] [address] 07/09/2025 2:40 PM EDT Office Visit [facility] [place] [facility] [address] [facility], [address] [place] [address] Ar Dominique MD [address] [facility] [address] [place] [address] 07/11/2025 10:30 AM EDT Appointment [facility] [address] [place] [address] 07/11/2025 11:30 AM EDT Appointment [facility] [address] [place] [address] 07/18/2025 10:30 AM EDT Appointment [facility] [address] [place] [address] 07/18/2025 11:30 AM EDT Appointment [facility] [address] [place] [address] 07/25/2025 10:30 AM EDT Appointment [facility] [address] [place] [address] 07/25/2025 11:30 AM EDT Appointment [facility] [address] [facility] [place] [address] 07/31/2025 9:00 AM EDT Office Visit [address] [address] Alvarez Zimmer MD [address] [place] [address] 08/20/2025 9:30 AM EDT Clinical Support [facility] [place] [address] [place] [address] 08/20/2025 10:30 AM EDT Social Work [facility] [place] [address] [place] [address] [place] [address] 08/20/2025 11:00 AM EDT Office Visit [facility] [address] [place] [address] Jude Duque MD [address] [place] [address] 10/30/2025 1:20 PM EST Office Visit [facility] Endocrinology [address] [place] [address] Sharif Moreno, DPM [address] [place] [address] documented as of this encounter [...] documented as of this encounter Care Teams Channel Marketing Program Manager Relationship Specialty Start Date End Date Alvarez Zimmer MD [address] [place] [address] PCP - General Family Medicine 12/07/24 Lea Fernando [address] [facility] [address] [place] [address] Pocket Grinder Operator Endocrinology 08/29/24 Rachel Ray, ENVIRONMENTAL ENGINEERING MANAGER [address] [place] [address] Nurse Practitioner Gastroenterology 09/24/24 Tamera Isabel LPN VALUE-BASED TRANSFORMATION PROGRAM Licensed Practical Nurse 05/29/25 documented as of this encounter
--- OUTSIDE RECORDS SUMMARY | 2025-06-24 09:52 | XMS_ITS | Encounter Summary ---
Author Organization Healthcare Address [facility] [address] Care Team Providers Care Train Caller Name Role Phone Wilma Howard Ambar RUSH Primary Care Provider [phone] Lea Fernando Unavailable [phone] Rachel Ray ATTENDANCE OFFICER Unavailable [phone] Taina Lyles ATTENDANCE OFFICER Primary Care Provider [phone] Monique Tapia DEMONSTRATOR KNITTING Unavailable Unavailable Alvarez Zimmer MD Primary Care Provider [phone] Shaniqua Trevino DEMONSTRATOR KNITTING Unavailable Unavailable Tamera Isabel DEMONSTRATOR KNITTING Unavailable Unavailabl e Encounter Details Date Type Department Care Team (Late st Contact Info) Description 01/18/2024 Orders Only External Location [address] [place] [id number] Provider, External Social History Tobacco Use Types [...] Appointment [facility] [address] [place] [address] 06/27/2025 10:30 AM EDT Appointment [facility] [address] [place] [address] 07/04/2025 10:30 AM EDT Appointment [facility] [address] [place] [address] 07/04/2025 11:30 AM EDT Appointment [facility] [address] [place] [address] 07/09/2025 2:40 PM EDT Office Visit [facility] [place] [address], [address] [place] [address] Ar Dominique MD [address] [place] [address] 07/11/2025 10:30 AM EDT Appointment [facility] [address] [place] [address] 07/11/2025 11:30 AM EDT Appointment [facility] [address] [place] [address] 07/18/2025 10:30 AM EDT Appointment [facility] [address] [place] [address] 07/18/2025 11:30 AM EDT Appointment [facility] [address] [place] [address] 07/25/2025 10:30 AM EDT Appointment [facility] [address] [place] [address] 07/25/2025 11:30 AM EDT Appointment [facility] [address] [place] [address] 07/31/2025 9:00 AM EDT Office Visit [address] [phone] Alvarez Zimmer MD [address] [place] [address] 08/20/2025 9:30 AM EDT Clinical Support [facility] [place] [address] [place] [address] 08/20/2025 10:30 AM EDT Social Work [facility] [place] [address] [place] [address] [place] [address] 08/20/2025 11:00 AM EDT Office Visit [facility] [place] [address] [place] [address] Jdue Duque MD [address] [place] [address] 10/30/2025 1:20 PM EST Office Visit [facility] Endocrinology [address] [place] [address] Sharif Moreno, DPNicole [address] [place] [address] documented as of this encounter [...] documented as of this encounter Care Teams Train Caller Relationship Specialty Start Date End Date Wilma Howard APRN [address] [place] [address] [place], [place] [id number] PCP - General 04/03/21 09/30/24 Taina Lyles, ATTENDANCE OFFICER [address] [place] [address] [place], [place] [id number] PCP - General 10/01/24 12/06/24 Alvarez Zimmer MD [address] [place] [address] PCP - General Family Medicine 12/07/24 Lea Fernando [address] [place] [address] Sleeve Presser Operator Endocrinology 08/29/24 Rachel Ray ATTENDANCE OFFICER [address] [place] [address] Nurse Practitioner Gastroenterology 09/24/24 Monique Tapia LPN VALUE-BASED [place] [address] TCM Nurse 11/28/24 12/28/24 Shaniqua Trevino LPN TCM Nurse 01/15/25 02/14/25 Tamera Isabel LPN VALUE-BASED TRANSFORMATION PROGRAM Licensed Practical Nurse 05/29/25 documented as of this encounter
--- OUTSIDE RECORDS SUMMARY | 2025-06-24 09:52 | XMS_ITS | Encounter Summary ---
Author Organization Healthcare Address [address] [place] [address] Care Team Providers Care Home Specialist Name Role Phone Lea Fernando Unavailable [phone] Rachel Ray STITCHER TAPE CONTROLLED MACHINE Unavailable [phone] Alvarez Zimmer MD Primary Care Provider [phone] Encounter Details Date Type Department Care Team [...] Recorded Patient Health Questionnaire-2 Score 2 04/10/2025 [facility]at ional Health - [...] first t kennedy in the morning (EYE-DIRECTOR INFORMATION) to steady your nerves or to get [...] Appointment [facility] [address] [place] [address] 06/27/2025 10:30 AM EDT Appointment [facility] [address] [place] [address] 07/04/2025 10:30 AM EDT Appointment [facility] [address] [place] [address] 07/04/2025 11:30 AM EDT Appointment [facility] [address] [place] [address] 07/09/2025 2:40 PM EDT Office Visit [facility] [address] [facility], [address] [place] [address] Ar Dominique MD [address] [facility] [address] [place] [address] 07/11/2025 10:30 AM EDT Appointment [facility] [address] [place] [address] 07/11/2025 11:30 AM EDT Appointment [facility] [address] [place] [address] 07/18/2025 10:30 AM EDT Appointment [facility] [address] [place] [address] 07/18/2025 11:30 AM EDT Appointment [facility] [address] [place] [address] 07/25/2025 10:30 AM EDT Appointment [facility] [address] [place] [address] 07/25/2025 11:30 AM EDT Appointment [facility] [address] [place] [address] 07/31/2025 9:00 AM EDT Office Visit [address] [address] Alvarez Zimmer MD [address] [place] [address] 08/20/2025 9:30 AM EDT Clinical Support [facility] [place] [address] [place] [address] 08/20/2025 10:30 AM EDT Social Work [facility] [place] [address] [place] [address] Deysi Ortega [place], [place] [phone] 08/20/2025 11:00 AM EDT Office Visit [facility] [place] [address] [place] [address] Jude Duque MD [address] [place] [address] 10/30/2025 1:20 PM EST [facility] [address] [place] [address] Sharif Moreno, DPNicole [address] [place] [address] documented as of this encounter [...] documented as of this encounter Care Teams Home Specialist Relationship Specialty Start Date End Date Alvarez Zimmer MD [address] [place] [address] PCP - General Family Medicine 12/07/24 Lea Fernando [address] [place] [address] Program Specialist Endocrinology 08/29/24 Rachel Ray APRN [address] [place] [address] Nurse Practitioner Gastroenterology 09/24/24 documented as of this encounter
--- OUTSIDE RECORDS SUMMARY | 2025-06-24 09:52 | XMS_ITS | Encounter Summary ---
Author Organization Healthcare Address [address] [place] [address] Care Team Providers Care Switch Tender Name Role Phone Lea Fernando Unavailable [phone] Rachel Ray TEXTILE FINISHER Unavailable [phone] Alvarez Zimmer MD Primary Care Provider [phone] Encounter Details Date Type Department Care Team [...] often do you attend chur ch or voodoo services? Patient unable to answer [...] Patient Health Questionnaire-2 Score 1 05/07/2025 [facility] Occupat ional Health - [...] any time in the past 12 m [facility], were you homeless or living [...] drink first t kennedy in the morning (EYE-EMAIL MARKETING EXECUTIVE) to steady your nerves or to get [...] Upcoming Encounters Date Type Department Care Team ([facility] st Contact Info) Description 06/27/2025 9:30 AM EDT Appointment [facility] Inter[facility] Radiology [address] [place] [address] 06/27/2025 10:30 AM EDT Appointment [facility] [address] [place] [address] 07/04/2025 10:30 AM EDT Appointment [facility] [address] [place] [address] 07/04/2025 11:30 AM EDT Appointment [facility] [address] [place] [address] 07/09/2025 2:40 PM EDT Office Visit [facility] [place] [facility] [address] [facility], [address] [place] [address] Ar Dominique MD [address] [facility] [address] [place] [address] 07/11/2025 10:30 AM EDT Appointment [facility] [address] [place] [address] 07/11/2025 11:30 AM EDT Appointment [facility] [address] [place] [address] 07/18/2025 10:30 AM EDT Appointment [facility] [address] [place] [address] 07/18/2025 11:30 AM EDT Appointment [facility] [address] [place] [address] 07/25/2025 10:30 AM EDT Appointment [facility] [address] [place] [address] 07/25/2025 11:30 AM EDT Appointment [facility] [address] [place] [address] 07/31/2025 9:00 AM EDT Office Visit [facility] [address] [place] [address] Alvarez Zimmer MD [address] [place] [address] 08/20/2025 9:30 AM EDT Clinical Support [facility] [place] [address] [place] [address] 08/20/2025 10:30 AM EDT Social Work [facility] [place] [address] [place] [address] Deysi Ortega [place], [place] [address] 08/20/2025 11:00 AM EDT Office Visit [facility] [place] [address] [place] [address] Jude Duque MD [address] [place] [address] 10/30/2025 1:20 PM EST Office Visit [facility] Endocrinology [address] [place] [address] Sharif Moreno, DPNicole [address] [place] [address] documented as of this encounter [...] documented as of this encounter Care Teams Switch Tender Relationship Specialty Start Date End Date Alvarez Zimmer MD [address] [place] [address] PCP - General Family Medicine 12/07/24 Lea Fernando [address] [place] [address] Extractive Metallurgist Endocrinology 08/29/24 Rachel Ray, TEXTILE FINISHER [address] [place] [address] Nurse Practitioner Gastroenterology 09/24/24 documented as of this encounter
--- OUTSIDE RECORDS SUMMARY | 2025-06-24 09:52 | XMS_ITS | Encounter Summary ---
Author Organization [facility] Address [address] [place] [address] Care Team Providers Care Tank Cleaning Supervisor Name Role Phone Kassie Lea Clarke Unavailable [phone] Rachel Ray PURIFICATION OPERATOR Unavailable [phone] Alvarez Zimmer MD Primary Care Provider [phone] Reason for Visit * Reason Onset Date Comments Med Refill 05/04/2025 Encounter Details Date Type Department Care Team (Late st Contact Info) Description 05/04/2025 Refill [facility] [address] [place] [address] Alvarez Zimmer MD [address] [place] [address] Altered mental status, unspecified altered [...] do you attend [facility] or [facility] services? Patient unable to answer [...] Score 1 05/07/2025 [facility] Occupat ional Health - Occupational [...] a skilled nursing (including now)? No 03/06/2025 CAGE ASSESSMENT Answer [...] drink first t kennedy in the morning (EYE-FUR TRAPPER) to steady your nerves or to get [...] Appointment [facility] Inter[facility] Radiology [address] [facility] [place] [address] 06/27/2025 10:30 AM EDT Appointment [facility] Inter[facility] Radiology [address] [place] [address] 07/04/2025 10:30 AM EDT Appointment [facility] [address] [place] [address] 07/04/2025 11:30 AM EDT Appointment [facility]iology [address] [place] [address] 07/09/2025 2:40 PM EDT Office Visit [facility] [address], [address] [place] [address] Ar Dominique MD [address] [place] [address] 07/11/2025 10:30 AM EDT Appointment [facility] [address] [place] [address] 07/11/2025 11:30 AM EDT Appointment [facility] [address] [place] [address] 07/18/2025 10:30 AM EDT Appointment [facility] [address] [place] [address] 07/18/2025 11:30 AM EDT Appointment [facility] [address] [place] [address] 07/25/2025 10:30 AM EDT Appointment [facility] [address] [place] [address] 07/25/2025 11:30 AM EDT Appointment [facility] [address] [place] [address] 07/31/2025 9:00 AM EDT Office Visit [address] [address] Alvarez Zimmer MD [address] [place] [address] 08/20/2025 9:30 AM EDT Clinical Support [facility] [place] [address] [place] [address] 08/20/2025 10:30 AM EDT Social Work [facility] [place] [address] [place] [address] [place] [address] 08/20/2025 11:00 AM EDT Office Visit [facility] [place] [address] [place] [address] Jude Duque MD [address] [place] [address] 10/30/2025 1:20 PM EST Office [facility] Endocrinology [address] [place] [address] Sharif Moreno, DPNicole [address] [place] [address] documented as of this encounter [...] documented as of this encounter Care Teams Tank Cleaning Supervisor Relationship Specialty Start Date End Date Alvarez Zimmer MD [address] [place] [address] PCP - General Family Medicine 12/07/24 Lea Fernando [address] [place] [address] Class A Lineman Endocrinology 08/29/24 Rachel Ray, ADRI [address] [place] [address] Nurse Practitioner Gastroenterology 09/24/24 documented as of this encounter
--- OUTSIDE RECORDS SUMMARY | 2025-06-24 09:52 | XMS_ITS | Encounter Summary ---
Author Organization Healthcare Address [address] [place] [address] Care Team Providers Care Ball Racker Name Role Phone Lea Fernando Unavailable [phone] Rachel Ray MANAGER OF CUSTOMER BILLING Unavailable [phone] Alvarez Zimmer MD Primary Care Provider [phone] Tamera Isabel LPN Unavailable Unavailabl e Encounter Details Date Type Department Care Team (Late st Contact Info) Description 05/08/2025 Results Follow-Up [facility] [address] [place] [address] Wilma Arana, [facility] LIVER [id number] [address] [place] [address] Social History Tobacco Use Types [...] do you attend [facility] or mandaen services? Patient unable to answer 01/10/2025 Do you belong to any clubs o r organizations such as faith groups, unions, [employer] or athletic groups, or school groups? Patient [...] drink first t kennedy in the morning (EYE-AIRPORT MANAGER) to steady your nerves or to [...] Appointment [facility] [address] [place] [address] 06/27/2025 10:30 AM EDT Appointment [facility] [address] [place] [address] 07/04/2025 10:30 AM EDT Appointment [facility] [address] [place] [address] 07/04/2025 11:30 AM EDT Appointment [facility] [address] [place] [address] 07/09/2025 2:40 PM EDT Office Visit [facility] [place] [facility] [address] [facility], [address] [place] [address] Ar Dominique MD [address] [place] [address] 07/11/2025 10:30 AM EDT Appointment [facility] [address] [place] [address] 07/11/2025 11:30 AM EDT Appointment [facility] [address] [place] [address] 07/18/2025 10:30 AM EDT Appointment [facility] [address] [place] [address] 07/18/2025 11:30 AM EDT Appointment [facility] [address] [place] [address] 07/25/2025 10:30 AM EDT Appointment [facility] [address] [place] [address] 07/25/2025 11:30 AM EDT Appointment [facility] [address] [place] [address] 07/31/2025 9:00 AM EDT Office Visit [address] [address] Alvarez Zimmer MD [address] [place] [address] 08/20/2025 9:30 AM EDT Clinical Support [facility] [place] [address] [place] [address] 08/20/2025 10:30 AM EDT Social Work [facility] [place] [address] [place] [address] [place] [address] 08/20/2025 11:00 AM EDT Office Visit [facility] [address] [place] [address] Jude Duque MD [address] [place] [address] 10/30/2025 1:20 PM EST Office Visit [facility] Endocrinology [address] [place] [address] Sharif Moreno, DPNicole [address] [place] [address] documented as of this encounter [...] documented as of this encounter Care Teams Ball Racker Relationship Specialty Start Date End Date Alvarez Zimmer MD [address] [place] [address] PCP - General Family Medicine 12/07/24 Lea Fernando [address] [facility] [address] [place] [address] Manager Safe Endocrinology 08/29/24 Rachel Ray APRN [address] [place] [address] Nurse Practitioner Gastroenterology 09/24/24 Tamera Isabel LPN VALUE-BASED TRANSFORMATION PROGRAM Licensed Practical Nurse 05/29/25 documented as of this encounter
--- OUTSIDE RECORDS SUMMARY | 2025-06-24 09:52 | XMS_ITS | Encounter Summary ---
Author Organization Healthcare Address [address] [place] [address] Care Team Providers Care Director Aeronaut[employer] Commission Name Role Phone Lea Fernando Unavailable [phone] Rachel Ray SPANISH LECTURER Unavailable [phone] Alvarez Zimmer MD Primary Care Provider [phone] Encounter Details Date Type Department Care Team [...] Recorded Patient Health Questionnaire-2 Score 1 05/07/2025 [facility] - Occupational [...] any time in the past 12 m [facility], were you homeless or living in [...] drink first t kennedy in the morning (EYE-WIRE PULLER) to steady your nerves or to get [...] Appointment [facility] Interventional Radiology [address] [place] [address] 06/27/2025 10:30 AM EDT Appointment [facility] [address] [place] [address] 07/04/2025 10:30 AM EDT Appointment [facility] [address] [place] [address] 07/04/2025 11:30 AM EDT Appointment [facility] [address] [place] [address] 07/09/2025 2:40 PM EDT Office Visit [facility] [place] [facility] [address] [facility], [address] [place] [address] Ar Dominique MD [address] [facility] [address] [place] [address] 07/11/2025 10:30 AM EDT Appointment [facility] [address] [place] [address] 07/11/2025 11:30 AM EDT Appointment [facility] [address] [place] [address] 07/18/2025 10:30 AM EDT Appointment [facility] [address] [place] [address] 07/18/2025 11:30 AM EDT Appointment [facility] [address] [place] [address] 07/25/2025 10:30 AM EDT Appointment [facility]iology [address] [place] [address] 07/25/2025 11:30 AM EDT Appointment [facility] [address] [place] [address] 07/31/2025 9:00 AM EDT Office Visit [facility] [address] [place] [address] Alvarez Zimmer MD [address] [place] [address] 08/20/2025 9:30 AM EDT Clinical Support [facility] [place] [address] [place] [address] 08/20/2025 10:30 AM EDT Social Work [facility] [place] [address] [place] [address] Deysi Ortega [place], [place] [address] 08/20/2025 11:00 AM EDT Office Visit [facility] [place] [address] [place] [address] Jude Duque MD [address] [place] [address] 10/30/2025 1:20 PM EST Office Visit [facility] Endocrinology [address] [place] [address] Sharif Moreno, DPNicole [address] [place] [address] documented as of this encounter [...] as of this encounter Care Teams Director Aeronautics Commission Relationship Specialty Start Date End Date Alvarez Zimmer MD [address] [place] [address] PCP - General Family Medicine 12/07/24 Lea Fernando [address] [place] [address] Charge Loader Endocrinology 08/29/24 Rachel Ray, SPANISH LECTURER [address] [place] [address] Nurse Practitioner Gastroenterology 09/24/24 documented as of this encounter
--- OUTSIDE RECORDS SUMMARY | 2025-06-24 09:52 | XMS_ITS | Encounter Summary ---
Author Organization Healthcare Address [facility] [place] [address] Care Team Providers Care Quartz Miner Name Role Phone Wilma Howard Ambar RUSH Primary Care Provider [phone] Lea Fernando Unavailable [phone] Rachel Ray SOFTWARE INTERN Unavailable [phone] Taina Lyles SOFTWARE INTERN Primary Care Provider [phone] Monique Tapia INTERMEDIATE FRAME TENDER Unavailable Unavailable Alvarez Zimmer MD Primary Care Provider [phone] Shaniqua Trevino INTERMEDIATE FRAME TENDER Unavailable Unavailable Tamera Isabel INTERMEDIATE FRAME TENDER Unavailable Unavailabl e Encounter Details Date Type Department Care Team (Late st Contact Info) Description 12/15/2023 Orders Only External Location [address] [place] [phone] Provider, External Social History Tobacco Use Types [...] Appointment [facility] Inter[facility] Radiology [address] [place] [address] 06/27/2025 10:30 AM EDT Appointment [facility] [address] [place] [address] 07/04/2025 10:30 AM EDT Appointment [facility] [address] [place] [address] 07/04/2025 11:30 AM EDT Appointment [facility] [address] [place] [address] 07/09/2025 2:40 PM EDT Office Visit [facility] Mineral Metabolism [address], [address] [place] [address] Ar Dominique MD [address] [place] [address] 07/11/2025 10:30 AM EDT Appointment [facility] [address] [place] [address] 07/11/2025 11:30 AM EDT Appointment [facility] [address] [place] [address] 07/18/2025 10:30 AM EDT Appointment [facility] [address] [place] [address] 07/18/2025 11:30 AM EDT Appointment [facility] [address] [place] [address] 07/25/2025 10:30 AM EDT Appointment [facility] [address] [place] [address] 07/25/2025 11:30 AM EDT Appointment [facility] [address] [place] [address] 07/31/2025 9:00 AM EDT Office Visit [address] [phone] Alvarez Zimmer MD 202 [place] [address] 08/20/2025 9:30 AM EDT Clinical Support [facility] [place] [address] [place] [address] 08/20/2025 10:30 AM EDT Social Work [facility] [place] [address] [place] [address] [place] [address] 08/20/2025 11:00 AM EDT Office Visit [facility] [place] [address] [place] [address] Jude Duque MD [address] [place] [address] 10/30/2025 1:20 PM EST Office Visit [facility] Endocrinology [address] [place] [address] Sharif Moreno, DPNicole [address] [place] [address] documented as of this encounter [...] documented as of this encounter Care Teams Quartz Miner Relationship Specialty Start Date End Date Wilma Howard, SOFTWARE INTERN [address] [place], [place] [id number] PCP - General 04/03/21 09/30/24 Taina Lyles, SOFTWARE INTERN [address] [place] [address] [place], [place] [id number] PCP - General 10/01/24 12/06/24 Alvarez Zimmer MD [address] [place] [address] PCP - General Family Medicine 12/07/24 Lea Fernando [address] [place] [address] Crystal Calibrator Endocrinology 08/29/24 Rachel Ray, SOFTWARE INTERN [address] [place] [address] Nurse Practitioner Gastroenterology 09/24/24 Monique Tapia LPN VALUE-BASED [place] [address] TCM Nurse 11/28/24 12/28/24 Shaniqua Trevino LPN TCM Nurse 01/15/25 02/14/25 Tamera Isabel LPN VALUE-BASED TRANSFORMATION PROGRAM Licensed Practical Nurse 05/29/25 documented as of this encounter
--- OUTSIDE RECORDS SUMMARY | 2025-06-24 09:52 | XMS_ITS | Encounter Summary ---
Author Organization Healthcare Address [facility] [place] [address] Care Team Providers Care Heel Sewer Name Role Phone Wilma Howard Ambar RUSH Primary Care Provider [phone] Lea Fernando Unavailable [phone] Rachel Ray FURNACE HAND Unavailable [phone] Taina Lyles FURNACE HAND Primary Care Provider [phone] Monique Tapia ROSS FURNACE OPERATOR Unavailable Unavailable Alvarez Zimmer MD Primary Care Provider [phone] Shaniqua Trevino ROSS FURNACE OPERATOR Unavailable Unavailable Tamera Isabel ROSS FURNACE OPERATOR Unavailable Unavailabl e Encounter Details Date Type Department Care Team (Late st Contact Info) Description 07/17/2024 Orders Only External Location [address] [place] [phone] Provider, External Social History Tobacco Use Types [...] Appointment [facility] Interventional Radiology [address] [place] [address] 06/27/2025 10:30 AM EDT Appointment [facility] [address] [place] [address] 07/04/2025 10:30 AM EDT Appointment [facility] [address] [place] [address] 07/04/2025 11:30 AM EDT Appointment [facility] Inter[facility] Radiology [address] [place] [address] 07/09/2025 2:40 PM EDT Office Visit [facility] Bone & Mineral Metabolism [address], [address] [place] [address] Ar Dominique MD [address] [place] [address] 07/11/2025 10:30 AM EDT Appointment [facility] Inter[facility] Radiology [address] [place] [address] 07/11/2025 11:30 AM EDT Appointment [facility] [address] [place] [address] 07/18/2025 10:30 AM EDT Appointment [facility] [address] [place] [address] 07/18/2025 11:30 AM EDT Appointment [facility] [address] [place] [address] 07/25/2025 10:30 AM EDT Appointment [facility] [address] [place] [address] 07/25/2025 11:30 AM EDT Appointment [facility] [address] [place] [address] 07/31/2025 9:00 AM EDT Office Visit [address] [phone] Alvarez Zimmer MD [address] [place] [address] 08/20/2025 9:30 AM EDT Clinical Support [facility] [place] [address] [place] [address] 08/20/2025 10:30 AM EDT Social Work [facility] [place] [address] [place] [address] [place] [address] 08/20/2025 11:00 AM EDT Office Visit [facility] [place] [address] [place] [address] Jude Duque MD [address] [place] [address] 10/30/2025 1:20 PM EST Office Visit [facility] Endocrinology [address] [place] [address] Sharif Moreno, DPNicole [address] [place] [address] documented as of this encounter [...] as of this encounter Care Teams Heel Sewer Relationship Specialty Start Date End Date Wilma Howard APRN [address] [place], [place] [id number] PCP - General 04/03/21 09/30/24 Taina Lyles, FURNACE HAND [address] [place] [address] [place] [id number] PCP - General 10/01/24 12/06/24 Alvarez Zimmer MD [address] [place] [address] PCP - General Family Medicine 12/07/24 Lea Fernando [address] [facility] [address] [place] [address] Drying Unit Felting Machine Operator Endocrinology 08/29/24 Rachel Ray, FURNACE HAND [address] [facility] [address] [place] [address] Nurse Practitioner Gastroenterology 09/24/24 Monique Tapia LPN VALUE-BASED [place] [address] TCM Nurse 11/28/24 12/28/24 Shaniqua Trevino LPN TCM Nurse 01/15/25 02/14/25 Tamera Isabel LPN VALUE-BASED TRANSFORMATION PROGRAM Licensed Practical Nurse 05/29/25 documented as of this encounter
--- OUTSIDE RECORDS SUMMARY | 2025-06-24 09:52 | XMS_ITS | Encounter Summary ---
Author Organization Healthcare Address [facility] [address] Care Team Providers Care Bdr Name Role Phone Wilma Howard Ambar RUSH Primary Care Provider [phone] Lea Fernando Unavailable [phone] Rachel Ray GENERAL MAINTENANCE TECHNICIAN Unavailable [phone] Taina Lyles GENERAL MAINTENANCE TECHNICIAN Primary Care Provider [phone] Monique Tapia RECORD FILING CLERK Unavailable Unavailable Alvarez Zimmer MD Primary Care Provider [phone] Shaniqua Trevino RECORD FILING CLERK Unavailable Unavailable Tamera Isabel RECORD FILING CLERK Unavailable Unavailabl e Encounter Details Date Type Department Care Team (Late st Contact Info) Description 02/02/2024 Orders Only External Location [address] [place] [phone] Provider, External Social History Tobacco Use Types [...] Appointment [facility] Interventional Radiology [address] [place] [address] 06/27/2025 10:30 AM EDT Appointment [facility] Interventional Radiology [address] [place] [address] 07/04/2025 10:30 AM EDT Appointment [facility] Inter[facility] Radiology [address] [place] [address] 07/04/2025 11:30 AM EDT Appointment [facility] Interventional Radiology [address] [place] [address] 07/09/2025 2:40 PM EDT Office Visit [facility] Bone & Mineral Metabolism [address], [address] [place] [address] Ar Dominique MD [address] [place] [address] 07/11/2025 10:30 AM EDT Appointment [facility] Interventional Radiology [address] [place] [address] 07/11/2025 11:30 AM EDT Appointment [facility] Inter[facility] Radiology [address] [place] [address] 07/18/2025 10:30 AM EDT Appointment [facility] [address] [place] [address] 07/18/2025 11:30 AM EDT Appointment [facility] Inter[facility] Radiology [address] [place] [address] 07/25/2025 10:30 AM EDT Appointment [facility] Inter[facility] Radiology [address] [place] [address] 07/25/2025 11:30 AM EDT Appointment [facility] Interventional Radiology [address] [place] [address] 07/31/2025 9:00 AM EDT Office Visit [address] [phone] Alvarez Zimmer MD 202 [place] [address] 08/20/2025 9:30 AM EDT Clinical Support [facility] [place] [address] [place] [address] 08/20/2025 10:30 AM EDT Social Work [facility] [place] [address] [place] [address] [place] [address] 08/20/2025 11:00 AM EDT Office Visit [facility] [place] [address] [place] [address] Jude Duque MD [address] [place] [address] 10/30/2025 1:20 PM EST Office Visit [facility] Endocrinology [address] [place] [address] Sharif Moreno, DPNicole [address] [place] [address] documented as of this encounter [...] documented as of this encounter Care Teams Bdr Relationship Specialty Start Date End Date Wilma Howard, GENERAL MAINTENANCE TECHNICIAN [address] [place], [place] [address] PCP - General 04/03/21 09/30/24 Taina Lyles, GENERAL MAINTENANCE TECHNICIAN [address] [place] [address] [place], [place] [id number] PCP - General 10/01/24 12/06/24 Alvarez Zimmer MD [address] [place] [address] PCP - General Family Medicine 12/07/24 Lea Fernando [address] [facility] [address] [place] [address] Electrical Research Engineer Endocrinology 08/29/24 Rachel Ray, GENERAL MAINTENANCE TECHNICIAN [address] [facility] [address] [place] [address] Nurse Practitioner Gastroenterology 09/24/24 Monique Tapia LPN VALUE-BASED [place] [address] TCM Nurse 11/28/24 12/28/24 Shaniqua Trevino LPN TCM Nurse 01/15/25 02/14/25 Tamera Isabel LPN VALUE-BASED TRANSFORMATION PROGRAM Licensed Practical Nurse 05/29/25 documented as of this encounter
--- OUTSIDE RECORDS SUMMARY | 2025-06-24 09:52 | XMS_ITS | Encounter Summary ---
Author Organization Healthcare Address [address] [place] [address] Care Team Providers Care Type Copy Examiner Name Role Phone Lea Fernando Unavailable [phone] Rachel Ray ASSURANCE ANALYST Unavailable [phone] Alvarez Zimmer MD Primary Care Provider [phone] Encounter Details Date Type Department Care Team [...] often do you attend chur ch or mormonism services? Patient unable to answer [...] Recorded Patient Health Questionnaire-2 Score 1 05/07/2025 [facility] of Occupat ional [...] in a usp (including now)? No 03/06/2025 CAGE ASSESSMENT Answer [...] drink first t kennedy in the morning (EYE-HARNESS PLACER) to steady your nerves or to get [...] -2 Score 1 05/07/2025 9:08 AM EDT Tamear Carter * How difficult have these problems [...] Appointment [facility] Interventional Radiology [address] [place] [address] 06/27/2025 10:30 AM EDT Appointment [facility] Inter[facility] Radiology [address] [place] [address] 07/04/2025 10:30 AM EDT Appointment [facility] Interventional Radiology [address] [place] [address] 07/04/2025 11:30 AM EDT Appointment [facility] Interventional Radiology [address] [place] [address] 07/09/2025 2:40 PM EDT Office Visit [facility] & Mineral Metabolism [address] [facility], [address] [place] [address] Ar Dominique MD [address] [facility] [address] [place] [address] 07/11/2025 10:30 AM EDT Appointment [facility] Interventional Radiology [address] [place] [address] 07/11/2025 11:30 AM EDT Appointment [facility] Inter[facility] Radiology [address] [place] [address] 07/18/2025 10:30 AM EDT Appointment [facility] Inter[facility] Radiology [address] [place] [address] 07/18/2025 11:30 AM EDT Appointment [facility] Inter[facility] Radiology [address] [place] [address] 07/25/2025 10:30 AM EDT Appointment [facility] Inter[facility] Radiology [address] [place] [address] 07/25/2025 11:30 AM EDT Appointment [facility] Inter[facility] Radiology [address] [place] [address] 07/31/2025 9:00 AM EDT Office Visit [address] [address] Alvarez Zimmer MD [address] [place] [address] 08/20/2025 9:30 AM EDT Clinical Support [facility] [address] [place] [address] 08/20/2025 10:30 AM EDT Social Work [facility] [address] [place] [address] Deysi Ortega [place], [place] [address] 08/20/2025 11:00 AM EDT Office Visit [facility] [place] [address] [place] [address] Jude Duque MD [address] [facility] [address] [place] [address] 10/30/2025 1:20 PM EST Office Visit [facility] Endocrinology [address] [place] [address] Sharif Moreno, DPM [address] [place] [address] documented as of this encounter [...] documented as of this encounter Care Teams Type Copy Examiner Relationship Specialty Start Date End Date Alvarez Zimmer MD [address] [place] [address] PCP - General Family Medicine 12/07/24 Lea Fernando [address] [place] [address] Analytic Manager Endocrinology 08/29/24 Rachel Ray APRN [address] [facility] [address] [place] [address] Nurse Practitioner Gastroenterology 09/24/24 documented as of this encounter
--- OUTSIDE RECORDS SUMMARY | 2025-06-24 09:52 | XMS_ITS | Encounter Summary ---
Author Organization Healthcare Address [facility] [place] [address] Care Team Providers Care Cook Pickled Meat Name Role Phone Wilma Howard Ambar RUSH Primary Care Provider [phone] Lea Fernando Unavailable [phone] Rachel Ray FUNDRAISER Unavailable [phone] Taina Lyles FUNDRAISER Primary Care Provider [phone] Monique Tapia TUBE ROLLER Unavailable Unavailable Alvarez Zimmer MD Primary Care Provider [phone] Shaniqua Trevino TUBE ROLLER Unavailable Unavailable Tamera Isabel TUBE ROLLER Unavailable Unavailabl e Encounter Details Date Type Department Care Team (Late st Contact Info) Description 07/14/2024 Orders Only External Location [address] [place] [place] [phone] Provider, External Social History Tobacco Use Types [...] Appointment [facility] Interventional Radiology [address] [place] [address] 06/27/2025 10:30 AM EDT Appointment [facility] Inter[facility] Radiology [address] [place] [address] 07/04/2025 10:30 AM EDT Appointment [facility] Interventional Radiology [address] [place] [address] 07/04/2025 11:30 AM EDT Appointment [facility] Interventional Radiology [address] [place] [address] 07/09/2025 2:40 PM EDT Office Visit [facility] Bone & Mineral Metabolism [address], [address] [place] [address] Ar Dominique MD [address] [place] [address] 07/11/2025 10:30 AM EDT Appointment [facility] Interventional Radiology [address] [place] [address] 07/11/2025 11:30 AM EDT Appointment [facility] Inter[facility] Radiology [address] [place] [address] 07/18/2025 10:30 AM EDT Appointment [facility] Rad[facility] [address] [place] [address] 07/18/2025 11:30 AM EDT Appointment [facility] [address] [place] [address] 07/25/2025 10:30 AM EDT Appointment [facility] [address] [place] [address] 07/25/2025 11:30 AM EDT Appointment [facility] Inter[facility] Radiology [address] [place] [address] 07/31/2025 9:00 AM EDT Office Visit [address] [phone] Alvarez Zimmer MD [address] [place] [address] 08/20/2025 9:30 AM EDT Clinical Support [facility] [place] [address] [place] [address] 08/20/2025 10:30 AM EDT Social Work [facility] [place] [address] [place] [address] [place] [address] 08/20/2025 11:00 AM EDT Office Visit [facility] [place] [address] [place] [address] Jude Duque MD [address] [place] [address] 10/30/2025 1:20 PM EST Office Visit [facility] Endocrinology [address] [place] [address] Sharif Moreno, DPNicole [address] [place] [address] documented as of this encounter [...] documented as of this encounter Care Teams Cook Pickled Meat Relationship Specialty Start Date End Date Wilma Howard, FUNDRAISER [address] [place], [place] [id number] PCP - General 04/03/21 09/30/24 Taina Lyles, FUNDRAISER [address] [place] [address] [place] [address] PCP - General 10/01/24 12/06/24 Alvarez Zimmer MD [address] [place] [address] PCP - General Family Medicine 12/07/24 Lea Fernando [address] [facility] [address] [place] [address] Tower Director Endocrinology 08/29/24 Rachel Ray, FUNDRAISER [address] [facility] [address] [place] [address] Nurse Practitioner Gastroenterology 09/24/24 Monique Tapia LPN VALUE-BASED [place] [address] TCM Nurse 11/28/24 12/28/24 Shaniqua Trevino LPN TCM Nurse 01/15/25 02/14/25 Tamera Isabel LPN VALUE-BASED TRANSFORMATION PROGRAM Licensed Practical Nurse 05/29/25 documented as of this encounter
--- OUTSIDE RECORDS SUMMARY | 2025-06-24 09:52 | XMS_ITS | Clinical Summary ---
Author Organization [facility] Address [address] [place] [address], [address] [place] [address] Care Team Providers Care Senior Software Quality Engineer Name Role Phone System, Referring Not In [...] (before breakfast) Active Multiple Vitamins-Minera ls (THERAPEUTIC MULTIVITAMIN-NC NERALS) tablet Take 1 tablet by mouth daily Active [place]-3 Fatty Acids (FISH OIL) 1000 MG CAPS [...] of Treatment Not on file Care Teams Senior Software Quality Engineer Relationship Specialty Start Date End Date System, Referring Not In PCP - General 06/30/16
--- OUTSIDE RECORDS SUMMARY | 2025-06-24 09:52 | XMS_ITS | Encounter Summary ---
Author Organization [facility] Address [address] [place] [address] Care Team Providers Care Facilities Engineering Manager Name Role Phone Wilma Howard Ambar RUSH Primary Care Provider [phone] Lea Fernando Unavailable [phone] Rachel Ray GUEST SERVICE MANAGER Unavailable [phone] Taina Lyles APRN Primary Care Provider [phone] Monique Tapia SAP SECURITY CONSULTANT Unavailable Unavailable Alvarez Zimmer MD Primary Care Provider [phone] Shaniqua Trevino SAP SECURITY CONSULTANT Unavailable Unavailable Tamera Isabel SAP SECURITY CONSULTANT Unavailable Unavailabl e Encounter Details Date Type Department Care Team (Late st Contact Info) Description 09/14/2024 Orders Only External Location [address] [place] [phone] Provider, External Social History Tobacco Use Types [...] a skilled nursing (including now)? Yes 08/29/2024 Education Answer Date [...] [facility] Interventional Radiology [address] [place] [address] 06/27/2025 10:30 AM EDT Appointment [facility] [address] [place] [address] 07/04/2025 10:30 AM EDT Appointment [facility] [address] [place] [address] 07/04/2025 11:30 AM EDT Appointment [facility]iology [address] [place] [address] 07/09/2025 2:40 PM EDT Office Visit [facility] Bone & Mineral Metabolism [address], [address] [place] [address] Ar Dominique MD [address] [place] [address] 07/11/2025 10:30 AM EDT Appointment [facility] Inter[facility] Radiology [address] [place] [address] 07/11/2025 11:30 AM EDT Appointment [facility] [address] [place] [address] 07/18/2025 10:30 AM EDT Appointment [facility] [address] [place] [address] 07/18/2025 11:30 AM EDT Appointment [facility] [address] [place] [address] 07/25/2025 10:30 AM EDT Appointment [facility]iology [address] [place] [address] 07/25/2025 11:30 AM EDT Appointment [facility] Inter[facility] Radiology [address] [place] [address] 07/31/2025 9:00 AM EDT Office Visit [facility] [address] [place] [address] Alvarez Zimmer MD 202 [place] [address] 08/20/2025 9:30 AM EDT Clinical Support [facility] [place] [address] [facility] [address] [place] [phone] 08/20/2025 10:30 AM EDT Social Work [facility] [place] [address] [facility] [address] [place] [address] [place] [address] 08/20/2025 11:00 AM EDT Office Visit [facility] [address] [place] [address] Jude Duque MD [address] [place] [address] 10/30/2025 1:20 PM EST Office Visit [facility] Endocrinology [address] [place] [address] Sharif Moreno DPM [address] [place] [address] documented as of this encounter [...] documented as of this encounter Care Teams Facilities Engineering Manager Relationship Specialty Start Date End Date Wilma Howard APRN [address] [place] [address] [place] [address] PCP - General 04/03/21 09/30/24 Taina Lyles APRN [address] [place] [address] [id number] PCP - General 10/01/24 12/06/24 Alvarez Zimmer MD [address] [place] [address] PCP - General Family Medicine 12/07/24 Lea Fernando [address] [facility] 125 [place] [address] Resident Services Director Endocrinology 08/29/24 Rachel Ray APRN [address] [facility] [address] [place] [address] Nurse Practitioner Gastroenterology 09/24/24 Monique Tapia LPN VALUE-[place] [address] TCM Nurse 11/28/24 12/28/24 Shaniqua Trevino LPN TCM Nurse 01/15/25 02/14/25 Tamera Isabel LPN VALUE-BASED TRANSFORMATION PROGRAM Licensed Practical Nurse 05/29/25 documented as of this encounter
--- OUTSIDE RECORDS SUMMARY | 2025-06-24 09:53 | XMS_ITS | Encounter Summary ---
Author Organization [facility] Address [address] [place] [address] Care Team Providers Care Faith Doctor Name Role Phone AyahTor Lea Clarke Unavailable [phone] Flor Rachel Rachael IT TRAINEE Unavailable [phone] Alvarez Zimmer MD Primary Care Provider [phone] Reason for Visit * Reason Onset Date Comments Med Refill 03/30/2025 Encounter Details Date Type Department Care Team (Late st Contact Info) Description 03/30/2025 Telephone [facility] [address] [place] [address] Alvarez Zimmer MD [address] [place] [address] Med Refill Social History Tobacco [...] do you attend [facility] or [facility]? Patient unable to answer [...] first t kennedy in the morning (EYE-PAPER DELIVERER) to steady your nerves or to get [...] Appointment [facility] Interventional Radiology [address] [place] [address] 06/27/2025 10:30 AM EDT Appointment [facility] [address] [place] [address] 07/04/2025 10:30 AM EDT Appointment [facility] [address] [place] [address] 07/04/2025 11:30 AM EDT Appointment [facility] Radiology [address] [place] [address] 07/09/2025 2:40 PM EDT Office Visit [facility] Bone & Mineral Metabolism [address] [facility], [address] [place] [address] Ar Dominique MD [address] [place] [address] 07/11/2025 10:30 AM EDT Appointment [facility] Radiology [address] [place] [address] 07/11/2025 11:30 AM EDT Appointment [facility]iology [address] [place] [address] 07/18/2025 10:30 AM EDT Appointment [facility] [address] [place] [address] 07/18/2025 11:30 AM EDT Appointment [facility] [address] [place] [address] 07/25/2025 10:30 AM EDT Appointment [facility] [address] [place] [phone] 07/25/2025 11:30 AM EDT Appointment [facility] [address] [place] [address] 07/31/2025 9:00 AM EDT Office Visit [address] [address] Alvarez Zimmer MD [address] [place] [address] 08/20/2025 9:30 AM EDT Clinical Support [facility] [address] [place] [address] 08/20/2025 10:30 AM EDT Social Work [facility] [address] [place] [address] Deysi Ortega [place], [place] [phone] 08/20/2025 11:00 AM EDT Office Visit [facility] [place] [address] [place] [address] Jude Duque MD [address] [place] [address] 10/30/2025 1:20 PM EST Office Visit [facility] Endocrinology [address] [place] [address] Sharif Moreno S, DPM [address] [place] [address] documented as of this encounter [...] documented as of this encounter Care Teams Faith Doctor Relationship Specialty Start Date End Date Alvarez Zimmer MD [address] [place] [phone] PCP - General Family Medicine 12/07/24 Lea Fernando [address] [place] [phone] Hospital Aides And Assistants Teacher Endocrinology 08/29/24 Rachel Ray APRN [address] [place] [address] Nurse Practitioner Gastroenterology 09/24/24 documented as of this encounter
--- OUTSIDE RECORDS SUMMARY | 2025-06-24 09:53 | XMS_ITS | Encounter Summary ---
Author Organization Healthcare Address [facility] [place] [address] Care Team Providers Care Weld Fitter Name Role Phone Wilma Howard Ambar RUSH Primary Care Provider [phone] Lea Fernando Unavailable [phone] Rachel Ray ORACLE SOA CONSULTANT Unavailable [phone] Taina Lyles ORACLE SOA CONSULTANT Primary Care Provider [phone] Monique Tapia STATE ARCHIVIST Unavailable Unavailable Alvarez Zimmer MD Primary Care Provider [phone] Shaniqua Trevino STATE ARCHIVIST Unavailable Unavailable Tamera Isabel STATE ARCHIVIST Unavailable Unavailabl e Encounter Details Date Type Department Care Team (Late st Contact Info) Description 02/08/2024 Orders Only External Location [address] [place] [phone] Provider, External Social History Tobacco Use Types [...] Appointment [facility] Interventional Radiology [address] [place] [address] 06/27/2025 10:30 AM EDT Appointment [facility] Inter[facility] Radiology [address] [place] [address] 07/04/2025 10:30 AM EDT Appointment [facility]iology [address] [place] [address] 07/04/2025 11:30 AM EDT Appointment [facility] Inter[facility] Radiology [address] [place] [address] 07/09/2025 2:40 PM EDT Office Visit [facility] Bone & Mineral Metabolism [address], [address] [place] [address] Ar Dominique MD [address] [place] [address] 07/11/2025 10:30 AM EDT Appointment [facility] Inter[facility] Radiology [address] [place] [address] 07/11/2025 11:30 AM EDT Appointment [facility] [address] [place] [address] 07/18/2025 10:30 AM EDT Appointment [facility]iology [address] [place] [address] 07/18/2025 11:30 AM EDT Appointment [facility] [address] [place] [address] 07/25/2025 10:30 AM EDT Appointment [facility] [address] [place] [address] 07/25/2025 11:30 AM EDT Appointment [facility] Inter[facility] Radiology [address] [place] [address] 07/31/2025 9:00 AM EDT Office Visit [address] [phone] Alvarez Zimmer MD 202 [place] [address] 08/20/2025 9:30 AM EDT Clinical Support [facility] [place] [address] [place] [address] 08/20/2025 10:30 AM EDT Social Work [facility] [place] [address] [place] [address] [place] [address] 08/20/2025 11:00 AM EDT Office Visit [facility] [place] [address] [place] [address] Jude Duque MD [address] [place] [address] 10/30/2025 1:20 PM EST Office Visit [facility] Endocrinology [address] [place] [address] Sharif Moreno, DPNicole [address] [place] [address] documented as of this [...] documented as of this encounter Care Teams Weld Fitter Relationship Specialty Start Date End Date Wilma Howard, ORACLE SOA CONSULTANT [address] [place], [place] [phone] PCP - General 04/03/21 09/30/24 Taina Lyles, ORACLE SOA CONSULTANT [address] [place] [address] Dr [place], [place] [id number] PCP - General 10/01/24 12/06/24 Alvarez Zimmer MD [address] [place] [address] PCP - General Family Medicine 12/07/24 Lea Fernando [address] [facility] [address] [place] [address] First Grade Teacher Endocrinology 08/29/24 Rachel Ray, ORACLE SOA CONSULTANT [address] [facility] [address] [place] [address] Nurse Practitioner Gastroenterology 09/24/24 Monique Tapia LPN VALUE-BASED [place] [address] TCM Nurse 11/28/24 12/28/24 Shaniqua Trevino LPN TCM Nurse 01/15/25 02/14/25 Tamera Isabel LPN VALUE-BASED TRANSFORMATION PROGRAM Licensed Practical Nurse 05/29/25 documented as of this encounter
--- OUTSIDE RECORDS SUMMARY | 2025-06-24 09:53 | XMS_ITS | Encounter Summary ---
Author Organization Healthcare Address [facility] [place] [address] Care Team Providers Care Executive Kitchen Manager Name Role Phone Wilma Howard Ambar RUSH Primary Care Provider [phone] Lea Fernando Unavailable [phone] Rachel Ray NETWORK DIAGNOSTIC SUPPORT SPECIALIST Unavailable [phone] Taina Lyles NETWORK DIAGNOSTIC SUPPORT SPECIALIST Primary Care Provider [phone] Monique Tapia DATA ENTRY MACHINE OPERATOR Unavailable Unavailable Alvarez Zimmer MD Primary Care Provider [phone] Shaniqua Trevino DATA ENTRY MACHINE OPERATOR Unavailable Unavailable Tamera Isabel DATA ENTRY MACHINE OPERATOR Unavailable Unavailabl e Encounter Details Date Type Department Care Team (Late st Contact Info) Description 02/02/2024 Orders Only External Location [address] [place] [phone] Provider, External Social History Tobacco Use Types [...] Appointment [facility] Interventional Radiology [address] [place] [address] 06/27/2025 10:30 AM EDT Appointment [facility] Interventional Radiology [address] [place] [address] 07/04/2025 10:30 AM EDT Appointment [facility] Inter[facility] Radiology [address] [place] [address] 07/04/2025 11:30 AM EDT Appointment [facility] Interventional Radiology [address] [place] [address] 07/09/2025 2:40 PM EDT Office Visit [facility] Bone & Mineral Metabolism [address], [address] [place] [address] Ar Dominique MD [address] [place] [address] 07/11/2025 10:30 AM EDT Appointment [facility] Inter[facility] Radiology [address] [place] [address] 07/11/2025 11:30 AM EDT Appointment [facility] Inter[facility] Radiology [address] [place] [address] 07/18/2025 10:30 AM EDT Appointment [facility] Inter[facility] Radiology [address] [place] [address] 07/18/2025 11:30 AM EDT Appointment [facility] Inter[facility] Radiology [address] [place] [address] 07/25/2025 10:30 AM EDT Appointment [facility] Inter[facility] Radiology [address] [place] [address] 07/25/2025 11:30 AM EDT Appointment [facility] Inter[facility] Radiology [address] [place] [address] 07/31/2025 9:00 AM EDT Office Visit [address] [phone] Alvarez Zimmer MD 202 [place] [address] 08/20/2025 9:30 AM EDT Clinical Support [facility] [place] [address] [place] [address] 08/20/2025 10:30 AM EDT Social Work [facility] [place] [address] [place] [address] [place] [address] 08/20/2025 11:00 AM EDT Office Visit [facility] [place] [address] [place] [address] Jude Duque MD [address] [place] [address] 10/30/2025 1:20 PM EST Office Visit [facility] Endocrinology [address] [place] [address] Sharif Moreno, DPNicole [address] [place] [address] documented as of [...] documented as of this encounter Care Teams Executive Kitchen Manager Relationship Specialty Start Date End Date Wilma Howard, NETWORK DIAGNOSTIC SUPPORT SPECIALIST [address] [place], [place] [phone] PCP - General 04/03/21 09/30/24 Taina Lyles, NETWORK DIAGNOSTIC SUPPORT SPECIALIST [address] [place] [address] Dr [place], [place] [phone] PCP - General 10/01/24 12/06/24 Alvarez Zimmer MD [address] [place] [address] PCP - General Family Medicine 12/07/24 Lea Fernando 2[address] [facility] [address] [place] [address] Optical Laboratory Technician Endocrinology 08/29/24 Rachel Ray, NETWORK DIAGNOSTIC SUPPORT SPECIALIST [address] [facility] [address] [place] [address] Nurse Practitioner Gastroenterology 09/24/24 Monique Tapia LPN VALUE-BASED [place] [address] TCM Nurse 11/28/24 12/28/24 Shaniqua Trevino LPN TCM Nurse 01/15/25 02/14/25 Tamera Isabel LPN VALUE-BASED TRANSFORMATION PROGRAM Licensed Practical Nurse 05/29/25 documented as of this encounter
--- OUTSIDE RECORDS SUMMARY | 2025-06-24 09:53 | XMS_ITS | Encounter Summary ---
Author Organization Healthcare Address [facility] [place] [address] Care Team Providers Care Robotics Application Engineer Name Role Phone Wilma Howard Ambar RUSH Primary Care Provider [phone] Lea Fernando Unavailable [phone] Rachel Ray TUFTING CREELER Unavailable [phone] Taina Lyles TUFTING CREELER Primary Care Provider [phone] Monique Tapia CARDIOLOGY NURSE Unavailable Unavailable Alvarez Zimmer MD Primary Care Provider [phone] Shaniqua Trevino CARDIOLOGY NURSE Unavailable Unavailable Tamera Isabel CARDIOLOGY NURSE Unavailable Unavailabl e Encounter Details Date Type Department Care Team (Late st Contact Info) Description 04/23/2024 Orders Only External Location [address] [place] [phone] Provider, External Social History Tobacco Use Types [...] Appointment [facility] Interventional Radiology [address] [place] [address] 06/27/2025 10:30 AM EDT Appointment [facility] Interventional Radiology [address] [place] [address] 07/04/2025 10:30 AM EDT Appointment [facility] Inter[facility] Radiology [address] [place] [address] 07/04/2025 11:30 AM EDT Appointment [facility] Interventional Radiology [address] [place] [address] 07/09/2025 2:40 PM EDT Office Visit [facility] Bone & Mineral Metabolism [address], [address] [place] [address] Ar Dominique MD [address] [place] [address] 07/11/2025 10:30 AM EDT Appointment [facility] Interventional Radiology [address] [place] [address] 07/11/2025 11:30 AM EDT Appointment [facility] Inter[facility] Radiology [address] [place] [address] 07/18/2025 10:30 AM EDT Appointment [facility] Inter[facility] Radiology [address] [place] [address] 07/18/2025 11:30 AM EDT Appointment [facility] Inter[facility] Radiology [address] [place] [address] 07/25/2025 10:30 AM EDT Appointment [facility] Inter[facility] Radiology [address] [place] [address] 07/25/2025 11:30 AM EDT Appointment [facility] Interventional Radiology [address] [place] [address] 07/31/2025 9:00 AM EDT Office Visit [address] [phone] Alvarez Zimmer MD 202 [place] [address] 08/20/2025 9:30 AM EDT Clinical Support [facility] [place] [address] [place] [address] 08/20/2025 10:30 AM EDT Social Work [facility] [place] [address] [place] [address] [place] [address] 08/20/2025 11:00 AM EDT Office Visit [facility] [place] [address] [place] [address] Jude Duque MD [address] [place] [address] 10/30/2025 1:20 PM EST Office Visit [facility] Endocrinology [address] [place] [address] Sharif Moreno, DPNicole [address] [place] [address] documented as of this encounter [...] documented as of this encounter Care Teams Robotics Application Engineer Relationship Specialty Start Date End Date Wilma Howard, TUFTING CREELER [address] [place], [place] [phone] PCP - General 04/03/21 09/30/24 Taina Lyles, TUFTING CREELER [address] [place] [address] [place], [place] [id number] PCP - General 10/01/24 12/06/24 Alvarez Zimmer MD [address] [place] [address] PCP - General Family Medicine 12/07/24 Lea Fernando 2[address] [facility] [address] [place] [address] Full Stack Net Developer Endocrinology 08/29/24 Rachel Ray, TUFTING CREELER [address] [facility] [address] [place] [address] Nurse Practitioner Gastroenterology 09/24/24 Monique Tapia LPN VALUE-BASED [place] [address] TCM Nurse 11/28/24 12/28/24 Shaniqua Trevino LPN TCM Nurse 01/15/25 02/14/25 Tamera Isabel LPN VALUE-BASED TRANSFORMATION PROGRAM Licensed Practical Nurse 05/29/25 documented as of this encounter
--- OUTSIDE RECORDS SUMMARY | 2025-06-24 09:53 | XMS_ITS | Encounter Summary ---
Author Organization Healthcare Address [address] [place] [address] Care Team Providers Care Business Development Professional Name Role Phone Lea Fernando Unavailable [phone] Rachel Ray AMBULANCE DISPATCHER Unavailable [phone] Alvarez Zimmer MD Primary Care Provider [phone] Encounter Details Date Type Department Care Team [...] Recorded Patient Health Questionnaire-2 Score 2 04/10/2025 [facility] - [...] first t kennedy in the morning (EYE-DIRECTOR BUSINESS DEVELOPMENT) to steady your nerves or to get [...] Appointment [facility] Interventional Radiology [address] [place] [address] 06/27/2025 10:30 AM EDT Appointment [facility] Interventional Radiology [address] [place] [address] 07/04/2025 10:30 AM EDT Appointment [facility] Interventional Radiology [address] [place] [address] 07/04/2025 11:30 AM EDT Appointment [facility] Interventional Radiology [address] [place] [address] 07/09/2025 2:40 PM EDT Office Visit [facility] [address] [facility], [address] [place] [address] Ar Dominique MD [address] [facility] [address] [place] [address] 07/11/2025 10:30 AM EDT Appointment [facility] Interventional Radiology [address] [place] [address] 07/11/2025 11:30 AM EDT Appointment [facility] Interventional Radiology [address] [place], [place] [address] 07/18/2025 10:30 AM EDT Appointment [facility] Interventional Radiology [address] [place], [place] [address] 07/18/2025 11:30 AM EDT Appointment [facility] Inter[facility] Radiology [address] [place], [place] [address] 07/25/2025 10:30 AM EDT Appointment [facility] Inter[facility] Radiology [address] [place], [place] [address] 07/25/2025 11:30 AM EDT Appointment [facility] Inter[facility] Radiology [address] [place] [address] 07/31/2025 9:00 AM EDT Office Visit [address] [address] Alvarez Zimmer MD [address] [place] [address] 08/20/2025 9:30 AM EDT Clinical Support [facility] [place] [address] [place] [address] 08/20/2025 10:30 AM EDT Social Work [facility] [place] [address] [place] [address] Deysi Ortega [place], [place] [phone] 08/20/2025 11:00 AM EDT Office Visit [facility] [place] [address] [place] [address] Jude Duque MD [address] [facility] [address] [place] [address] 10/30/2025 1:20 PM EST [facility] [address] [place] [address] Sharif Moreno, DPNicole [address] [place] [address] documented as of this encounter [...] documented as of this encounter Care Teams Business Development Professional Relationship Specialty Start Date End Date Alvarez Zimmer MD [address] [place] [address] PCP - General Family Medicine 12/07/24 Lea Fernando [address] [place] [address] Outreach Director Endocrinology 08/29/24 Rachel Ray APRN [address] [place] [address] Nurse Practitioner Gastroenterology 09/24/24 documented as of this encounter
--- OUTSIDE RECORDS SUMMARY | 2025-06-24 09:53 | XMS_ITS | Encounter Summary ---
Author Organization [facility] Address [address] [place] [address] Care Team Providers Care Claims Adjustor Name Role Phone AyahTor Lea Clarke Unavailable [phone] Rachel Ray PILOT BOAT OPERATOR Unavailable [phone] Alvarez Zimmer MD Primary Care Provider [phone] Tamera Isabel NURSERY TECHNICIAN Unavailable Unavailabl e Reason for Visit * Reason Onset Date Comments Med Refill 03/16/2025 Encounter Details Date Type Department Care Team (Late st Contact Info) Description 03/16/2025 Refill [facility] [address] [place] [address] Alvarez Zimmer MD [address] [place] [address] Social History Tobacco Use Types [...] How often do you attend [facility] or restoration services? Patient unable to answer 01/10/2025 Do you belong to any clubs o r organizations such as yarsani groups, unions, fraternal or athletic groups, or [...] Recorded Patient Health Questionnaire-2 Score 0 03/06/2025 [facility] of Occupat ional [...] drink first t kennedy in the morning (EYE-COURT RECORDER) to steady your nerves or to get [...] Upcoming Encounters Date Type Department Care Team ([facility] Contact Info) Description 06/27/2025 9:30 AM EDT Appointment [facility] [address] [place] [address] 06/27/2025 10:30 AM EDT Appointment [facility] [address] [place] [address] 07/04/2025 10:30 AM EDT Appointment [facility] [address] [place] [address] 07/04/2025 11:30 AM EDT Appointment [facility] [address] [place] [address] 07/09/2025 2:40 PM EDT [facility] [address], [address] [place] [address] Ar Dominique MD [address] [place] [address] 07/11/2025 10:30 AM EDT Appointment [facility] [address] [place] [address] 07/11/2025 11:30 AM EDT Appointment [facility] [address] [place] [address] 07/18/2025 10:30 AM EDT Appointment [facility] [address] [place] [address] 07/18/2025 11:30 AM EDT Appointment [facility] [address] [place] [address] 07/25/2025 10:30 AM EDT Appointment [facility] [address] [place] [address] 07/25/2025 11:30 AM EDT Appointment [facility] [address] [place] [address] 07/31/2025 9:00 AM EDT Office Visit [facility] [address] [place] [address] Alvarez Zimmer MD [address] [place] [address] 08/20/2025 9:30 AM EDT Clinical Support [facility] [address] [place] [address] 08/20/2025 10:30 AM EDT Social Work [facility] [address] [place] [address] [place] [address] 08/20/2025 11:00 AM EDT Office Visit [facility] [address] [place] [address] Jude Duque MD [address] [place] [address] [place] [address] 10/30/2025 1:20 PM EST Office Visit [facility] Endocrinology [address] [place] [address] Sharif Moreno, DPM [address] [facility] [address] [place] [address] documented as of this encounter [...] as of this encounter Care Teams Claims Adjustor Relationship Specialty Start Date End [place] [address] PCP - General Family Medicine 12/07/24 Lea Fernando [address] [facility] [address] [place] [address] Provisioning Analyst Endocrinology 08/29/24 Rachel Ray APRN [address] [facility] [address] [place] [address] Nurse Practitioner Gastroenterology 09/24/24 Tamera Isabel LPN VALUE-BASED TRANSFORMATION PROGRAM Licensed Practical Nurse 05/29/25 documented as of this encounter
--- OUTSIDE RECORDS SUMMARY | 2025-06-24 09:53 | XMS_ITS | Encounter Summary ---
Author Organization Healthcare Address [address] [place] [address] Care Team Providers Care Health Careers Instructor Name Role Phone Lea Fernando Unavailable [phone] Rachel Ray FRAUD INVESTIGATOR Unavailable [phone] Alvarez Zimmer MD Primary Care Provider [phone] Encounter Details Date Type Department Care Team [...] you attend chur ch or hindu services? Patient unable to answer [...] Recorded Patient Health Questionnaire-2 Score 2 04/10/2025 [facility] of Occupat ional Health - Occupational [...] drink first t kennedy in the morning (EYE-CONTROL SYSTEMS SPECIALIST) to steady your nerves or to [...] Upcoming Encounters Date Type Department Care Team ([facility] st Contact Info) Description 06/27/2025 9:30 AM EDT Appointment [facility] Radiology [address] [place] [address] 06/27/2025 10:30 AM EDT Appointment [facility] [address] [place] [address] 07/04/2025 10:30 AM EDT Appointment [facility] [address] [place] [address] 07/04/2025 11:30 AM EDT Appointment [facility] [address] [place] [address] 07/09/2025 2:40 PM EDT Office Visit [facility] [place] [facility] [address] [facility], [address] [place] [address] Ar Dominique MD [address] [facility] [address] [place] [address] 07/11/2025 10:30 AM EDT Appointment [facility] [address] [place] [address] 07/11/2025 11:30 AM EDT Appointment [facility] [address] [place] [address] 07/18/2025 10:30 AM EDT Appointment [facility] [address] [place] [address] 07/18/2025 11:30 AM EDT Appointment [facility] [address] [place] [address] 07/25/2025 10:30 AM EDT Appointment [facility] [address] [place] [address] 07/25/2025 11:30 AM EDT Appointment [facility] [address] [place] [address] 07/31/2025 9:00 AM EDT Office Visit [facility] [address] [place] [address] Alvarez Zimmer MD [address] [place] [address] 08/20/2025 9:30 AM EDT Clinical Support [facility] [place] [address] [place] [address] 08/20/2025 10:30 AM EDT Social Work [facility] [place] [address] [place] [address] Deysi Ortega [place], [place] [id number] 08/20/2025 11:00 AM EDT Office Visit [facility] [place] [address] [place] [address] Jude Duque MD [address] [place] [address] [place] [address] 10/30/2025 1:20 PM EST Office Visit [facility] Endocrinology [address] [place] [address] Sharif Moreno, DPNicole [address] [place] [address] [place] [address] documented as of this encounter [...] as of this encounter Care Teams Health Careers Instructor Relationship Specialty Start Date End Date Alvarez Zimmer MD [address] [place] [address] PCP - General Family Medicine 12/07/24 Lea Fernando [address] [place] [address] Ironworker Endocrinology 08/29/24 Rachel Ray, FRAUD INVESTIGATOR [address] [place] [address] Nurse Practitioner Gastroenterology 09/24/24 documented as of this encounter
--- OUTSIDE RECORDS SUMMARY | 2025-06-24 09:53 | XMS_ITS | Encounter Summary ---
Author Organization [facility] Address [address] [place] [address] Care Team Providers Care Metal Forger'S Assistant Name Role Phone Lenoresimeon Lea Clarke Unavailable [phone] Rachel Ray RIG MECHANIC Unavailable [phone] Alvarez Zimmer MD Primary Care Provider [phone] Encounter Details Date Type Department Care Team (Late st Contact Info) Description 04/04/2025 Telephone [facility] [address] [place] [address] Alvarez Zimmer MD [address] [place] [address] Social History Tobacco Use Types [...] you attend [facility] or judaism services? Patient unable to answer 01/10/2025 Do you belong to any clubs o r organizations such as religious groups, unions, fraUsarium or athletic groups, or school groups? Patient [...] Recorded Patient Health Questionnaire-2 Score 1 05/07/2025 [facility] of Occupat ional Health - Occupational Stress [...] in the past 12 m [facility], were you homeless or living in a [...] drink first t kennedy in the morning (EYE-LADIES' HAT TRIMMER) to steady your nerves or to get [...] for anymore visits. Best contact number: Other: [phone] Optimal time of day to reach caller: ANYTIME Additional comments/information from caller: None Note: Please do not reply to this message. Follow-up communication and further actions as a result of this message need to be communicated with the patient directly, if the patient is not active onMyChart. If the patient is active on MyChart, they will receive notification of the communication/outcome via [employer]. documented in this encounter Plan of Treatment Upcoming Encounters Date Type Department Care Team (Late st Contact Info) Description 06/27/2025 9:30 AM EDT Appointment [facility] Radiology [address] [place] [phone] 06/27/2025 10:30 AM EDT Appointment [facility] [address] [place] [address] 07/04/2025 10:30 AM EDT Appointment [facility] [address] [place] [address] 07/04/2025 11:30 AM EDT Appointment [facility] [address] [place] [address] 07/09/2025 2:40 PM EDT Office Visit [facility] [address], [address] [place] [address] Ar Dominique MD [address] [place] [address] 07/11/2025 10:30 AM EDT Appointment [facility] [address] [place] [address] 07/11/2025 11:30 AM EDT Appointment [facility] [address] [place] [address] 07/18/2025 10:30 AM EDT Appointment [facility] [address] [place] [address] 07/18/2025 11:30 AM EDT Appointment [facility] [address] [place] [address] 07/25/2025 10:30 AM EDT Appointment [facility] [address] [place] [address] 07/25/2025 11:30 AM EDT Appointment [facility] [address] [place] [address] 07/31/2025 9:00 AM EDT Office Visit [address] [address] Alvarez Zimmer MD [address] [place] [address] 08/20/2025 9:30 AM EDT Clinical Support [facility] [address] [place] [address] 08/20/2025 10:30 AM EDT Social Work [facility] [address] [place] [address] [place] [address] 08/20/2025 11:00 AM EDT Office Visit [facility] [address] [place] [address] Jude Duque MD [address] [place] [address] 10/30/2025 1:20 PM EST Office Visit [facility] Endocrinology [address] [place] [address] Sharif Moreno, ROSY [address] [place] [address] documented as of this encounter [...] documented as of this encounter Care Teams Metal Forger'S Assistant Relationship Specialty Start Date End Date Alvarez Zimmer MD [address] [place] [address] PCP - General Family Medicine 12/07/24 Lea Fernando [address] [facility] [address] [place] [address] Manual Control Auger Press Operator Endocrinology 08/29/24 Rachel Ray APRN [address] [facility] [address] [place] [address] Nurse Practitioner Gastroenterology 09/24/24 documented as of this encounter
--- OUTSIDE RECORDS SUMMARY | 2025-06-24 09:53 | XMS_ITS | Encounter Summary ---
Author Organization Healthcare Address [facility] [place] [address] Care Team Providers Care Medical Unit Secretary Name Role Phone Wilma Howard Ambar RUSH Primary Care Provider [phone] Lea Fernando Unavailable [phone] Rachel Ray AIRPLANE COVER MAKER Unavailable [phone] Taina Lyles AIRPLANE COVER MAKER Primary Care Provider [phone] Monique Tapia POWER BENDER OPERATOR Unavailable Unavailable Alvarez Zimmer MD Primary Care Provider [phone] Shaniqua Trevino POWER BENDER OPERATOR Unavailable Unavailable Tamera Isabel POWER BENDER OPERATOR Unavailable Unavailabl e Encounter Details Date Type Department Care Team (Late st Contact Info) Description 05/23/2024 Orders Only External Location [address] [place] [phone] Provider, External Social History Tobacco Use Types [...] Appointment [facility]iology [address] [place] [address] 06/27/2025 10:30 AM EDT Appointment [facility] Radiology [address] [place] [address] 07/04/2025 10:30 AM EDT Appointment [facility] [address] [place] [address] 07/04/2025 11:30 AM EDT Appointment [facility]iology [address] [place] [address] 07/09/2025 2:40 PM EDT Office Visit [facility] [address], [address] [place] [address] Ar Dominique MD [address] [place] [address] 07/11/2025 10:30 AM EDT Appointment [facility]iology [address] [place] [address] 07/11/2025 11:30 AM EDT Appointment [facility] [address] [place] [address] 07/18/2025 10:30 AM EDT Appointment [facility] [address] [place] [address] 07/18/2025 11:30 AM EDT Appointment [facility] [address] [place] [address] 07/25/2025 10:30 AM EDT Appointment [facility] [address] [place] [address] 07/25/2025 11:30 AM EDT Appointment [facility] [address] [place] [address] 07/31/2025 9:00 AM EDT Office Visit [address] [address] Alvarez Zimmer MD [address] [place] [address] 08/20/2025 9:30 AM EDT Clinical Support [facility] [place] [address] [place] [address] 08/20/2025 10:30 AM EDT Social Work [facility] [place] [address] [place] [address] [place] [address] 08/20/2025 11:00 AM EDT Office Visit [facility] [place] [address] [place] [address] Jude Duque MD [address] [place] [address] [place] [address] 10/30/2025 1:20 PM EST Office Visit [facility] Endocrinology [address] [place] [address] Sharif Moreno, DPNicole [address] [place] [address] [place] [address] documented as of this encounter [...] as of this encounter Care Teams Medical Unit Secretary Relationship Specialty Start Date End Date Wilma Howard, ADRI [address] [place], [place] [id number] PCP - General 04/03/21 09/30/24 Taina Lyles, AIRPLANE COVER MAKER [address] [place] [address] [place], [place] [id number] PCP - General 10/01/24 12/06/24 Alvarez Zimmer MD [address] [place] [address] PCP - General Family Medicine 12/07/24 Lea Fernando [address] [facility] [address] [place] [address] Stain Applicator Endocrinology 08/29/24 Rachel Ray, AIRPLANE COVER MAKER [address] [facility] [address] [place] [address] Nurse Practitioner Gastroenterology 09/24/24 Monique Tapia LPN VALUE-[place]ED [place] [address] TCM Nurse 11/28/24 12/28/24 Shaniqua Trevino LPN TCM Nurse 01/15/25 02/14/25 Tamera Isabel LPN VALUE-BASED TRANSFORMATION PROGRAM Licensed Practical Nurse 05/29/25 documented as of this encounter
--- OUTSIDE RECORDS SUMMARY | 2025-06-24 09:53 | XMS_ITS | Encounter Summary ---
Author Organization Healthcare Address [address] [place] [address] Care Team Providers Care Coverage Analyst Name Role Phone Lea Fernando Unavailable [phone] Rachel Ray FILTER PRESS TENDER Unavailable [phone] Alvarez Zimmer MD Primary Care Provider [phone] Encounter Details Date Type Department Care Team [...] often do you attend chur ch or yarsani services? Patient unable to answer [...] Recorded Patient Health Questionnaire-2 Score 2 04/10/2025 [facility] of Occupat ional Health - [...] drink first t kennedy in the morning (EYE-TRANSPORT COMPANY MANAGER) to steady your nerves or to [...] Appointment [facility] Inter[facility] Radiology [address] [place] [address] 06/27/2025 10:30 AM EDT Appointment [facility] [address] [place] [address] 07/04/2025 10:30 AM EDT Appointment [facility] [address] [place] [address] 07/04/2025 11:30 AM EDT Appointment [facility]iology [address] [place] [address] 07/09/2025 2:40 PM EDT Office Visit [facility] [place] [facility] [address] [facility], [address] [place] [address] Ar Dominique MD [address] [facility] [address] [place] [address] 07/11/2025 10:30 AM EDT Appointment [facility] [address] [place] [address] 07/11/2025 11:30 AM EDT Appointment [facility] [address] [place] [address] 07/18/2025 10:30 AM EDT Appointment [facility] [address] [place] [address] 07/18/2025 11:30 AM EDT Appointment [facility] [address] [place] [address] 07/25/2025 10:30 AM EDT Appointment [facility] [address] [place] [address] 07/25/2025 11:30 AM EDT Appointment [facility] [address] [place] [address] 07/31/2025 9:00 AM EDT Office Visit [facility] [address] [place] [address] Alvarez Zimmer MD [address] [place] [address] 08/20/2025 9:30 AM EDT Clinical Support [facility] [place] [address] [place] [address] 08/20/2025 10:30 [address] [facility] [place] [address] [place] [address] Deysi Ortega [place], [place] [phone] 08/20/2025 11:00 AM EDT Office Visit [facility] [place] [address] [place] [address] Jude Duque MD [address] [place] [address] [place] [address] 10/30/2025 1:20 PM EST Office Visit [facility] Endocrinology [address] [place] [address] Sharif Moreno, DPNicole [address] [place] [address] [place] [address] documented as of this encounter [...] documented as of this encounter Care Teams Coverage Analyst Relationship Specialty Start Date End Date Alvarez Zimmer MD [address] [place] [address] PCP - General Family Medicine 12/07/24 Lea Fernando [address] [place] [address] Administrative Aide Endocrinology 08/29/24 Rachel Ray, FILTER PRESS TENDER [address] [place] [address] Nurse Practitioner Gastroenterology 09/24/24 documented as of this encounter
--- OUTSIDE RECORDS SUMMARY | 2025-06-24 09:53 | XMS_ITS | Encounter Summary ---
Author Organization Healthcare Address [address] [place] [address] Care Team Providers Care Waistband Setter Lockstitch Name Role Phone Lea Fernando Unavailable [phone] Rachel Ray STEAM ROOM ATTENDANT Unavailable [phone] Alvarez Zimmer MD Primary Care Provider [phone] Tamera Isabel LPN Unavailable Unavailabl e Encounter Details Date Type Department Care Team (Late st Contact Info) Description 04/04/2025 Results Follow-Up [facility] Medicine Specialties [address] [place] [address] Octavia Herrera, MARIA GUADALUPE [address] [place] [address] Social History Tobacco Use Types [...] How often do you attend chur or lutheran services? Patient unable to answer 01/10/2025 Do [...] any time in the past 12 m [facility], were you homeless or living in [...] How often do you attend chur or lutheran services? Never 05/29/2025 Do you belong to [...] more drinks on one occasion? Never 06/05/2025 [facility] [...] any time in the past 12 m [facility], were you homeless or living in [...] drink first t kennedy in the morning (EYE-LAUNDRY ASSISTANT) to steady your nerves or to [...] Appointment [facility] Inter[facility] Radiology [address] [place] [address] 06/27/2025 10:30 AM EDT Appointment [facility] [address] [place] [address] 07/04/2025 10:30 AM EDT Appointment [facility] [address] [place] [address] 07/04/2025 11:30 AM EDT Appointment [facility] [address] [place] [address] 07/09/2025 2:40 PM EDT Office Visit [facility] [address] [facility], [address] [place] [address] Ar Dominique MD [address] [facility] [address] [place] [address] 07/11/2025 10:30 AM EDT Appointment [facility] [address] [place] [address] 07/11/2025 11:30 AM EDT Appointment [facility] [address] [place] [address] 07/18/2025 10:30 AM EDT Appointment [facility] [address] [place] [address] 07/18/2025 11:30 AM EDT Appointment [facility] [address] [place] [address] 07/25/2025 10:30 AM EDT Appointment [facility] [address] [place] [address] 07/25/2025 11:30 AM EDT Appointment [facility]iology [address] [place] [address] 07/31/2025 9:00 AM EDT Office Visit [facility] [address] [place] [address] Alvarez Zimmer MD [address] [place] [address] 08/20/2025 9:30 AM EDT Clinical Support [facility] [place] [address] [place] [address] 08/20/2025 10:30 AM EDT Social Work [facility] [place] [address] [place] [address] Deysi Ortega [place], [place] [id number] 08/20/2025 11:00 AM EDT Office Visit [facility] [place] [address] [place] [address] Jude Duque MD [address] [place] [address] 10/30/2025 1:20 PM EST Office Visit [facility] Endocrinology [address] [place] [address] Sharif Moreno, DPNicole [address] [place] [address] documented as of this encounter [...] documented as of this encounter Care Teams Waistband Setter Lockstitch Relationship Specialty Start Date End Date Alvarez Zimmer MD [address] [place] [address] PCP - General Family Medicine 12/07/24 Lea Fernando [address] [place] [address] Cotton Picker Operator Endocrinology 08/29/24 Rachel Ray APRN [address] [facility] [address] [place] [address] Nurse Practitioner Gastroenterology 09/24/24 Tamera Isabel LPN VALUE-BASED TRANSFORMATION PROGRAM Licensed Practical Nurse 05/29/25 documented as of this encounter
--- OUTSIDE RECORDS SUMMARY | 2025-06-24 09:53 | XMS_ITS | Encounter Summary ---
Author Organization Healthcare Address [facility] [place] [address] Care Team Providers Care Nutrition Technician Name Role Phone Wilma Howard Ambar RUSH Primary Care Provider [phone] Lea Fernando Unavailable [phone] Rachel Ray LEATHER SPRAYER Unavailable [phone] Taina Lyles LEATHER SPRAYER Primary Care Provider [phone] Monique Tapia ASSURANCE ASSISTANT Unavailable Unavailable Alvarez Zimmer MD Primary Care Provider [phone] Shaniqua Trevino ASSURANCE ASSISTANT Unavailable Unavailable Tamera Isabel ASSURANCE ASSISTANT Unavailable Unavailabl e Encounter Details Date Type Department Care Team (Late st Contact Info) Description 02/26/2024 Orders Only External Location [address] [place] [phone] Provider, External Social History Tobacco Use Types [...] A Interventional Radiology [address] [place] [address] 06/27/2025 10:30 AM EDT Appointment [facility] Interventional Radiology [address] [place] [address] 07/04/2025 10:30 AM EDT Appointment [facility] Interventional Radiology [address] [place] [address] 07/04/2025 11:30 AM EDT Appointment [facility] Interventional Radiology [address] [place] [address] 07/09/2025 2:40 PM EDT Office Visit [facility] Bone & Mineral Metabolism [address], [address] [place] [address] Ar Dominique MD [address] [place] [address] 07/11/2025 10:30 AM EDT Appointment [facility] Interventional Radiology [address] [place] [address] 07/11/2025 11:30 AM EDT Appointment [facility] Interventional Radiology [address] [place] [address] 07/18/2025 10:30 AM EDT Appointment [facility] Interventional Radiology [address] [place] [address] 07/18/2025 11:30 AM EDT Appointment [facility] Interventional Radiology [address] [place] [address] 07/25/2025 10:30 AM EDT Appointment [facility] Interventional Radiology [address] [place] [address] 07/25/2025 11:30 AM EDT Appointment [facility] Interventional Radiology [address] [place] [address] 07/31/2025 9:00 AM EDT Office Visit [address] [phone] Alvarez Zimmer MD [address] [place] [address] 08/20/2025 9:30 AM EDT Clinical Support [facility] [place] [address] [place] [address] 08/20/2025 10:30 AM EDT Social Work [facility] [place] [address] [place] [address] [place] [address] 08/20/2025 11:00 AM EDT Office Visit [facility] [place] [address] [place] [address] Jude Duque MD [address] [place] [address] 10/30/2025 1:20 PM EST Office Visit [facility] Endocrinology [address] [place] [address] Sharif Moreno, DPNicole [address] [place] [address] documented as of this encounter [...] documented as of this encounter Care Teams Nutrition Technician Relationship Specialty Start Date End Date Wilma Howard APRN [address] [place] [address] Dr [place], [place] [id number] PCP - General 04/03/21 09/30/24 Taina Lyles, LEATHER SPRAYER [address] [place] [address] [place], [place] [id number] PCP - General 10/01/24 12/06/24 Alvarez Zimmer MD [address] [place] [address] PCP - General Family Medicine 12/07/24 Lea Fernando [address] [place] [address] Rn Advanced Endocrinology 08/29/24 Rachel Ray APRN [address] [place] [address] Nurse Practitioner Gastroenterology 09/24/24 Monique Tapia LPN VALUE-[place] [address] TCM Nurse 11/28/24 12/28/24 Shaniqua Trevino LPN TCM Nurse 01/15/25 02/14/25 Tamera Isabel LPN VALUE-BASED TRANSFORMATION PROGRAM Licensed Practical Nurse 05/29/25 documented as of this encounter
--- OUTSIDE RECORDS SUMMARY | 2025-06-24 09:53 | XMS_ITS | Encounter Summary ---
Author Organization [facility] Address [address] [place] [address] Care Team Providers Care Residential Concierge Name Role Phone Lenoresimeon Lea Clarke Unavailable [phone] Rachel Ray SENIOR WIND TURBINE TECHNICIAN Unavailable [phone] Alvarez Zimmer MD Primary Care Provider [phone] Encounter Details Date Type Department Care Team (Late st Contact Info) Description 03/01/2025 Results Follow-Up [facility] [address] [place] [address] Alvarez Zimmer MD [address] [place] [address] Social History Tobacco Use Types [...] you attend [facility] or confucianist services? Patient unable to answer 01/10/2025 Do you belong to any clubs o r organizations such as spiritism groups, unions, fraMoonfruit or athletic groups, or school groups? Patient [...] Recorded Patient Health Questionnaire-2 Score 2 04/10/2025 [facility] - Occupational [...] drink first t kennedy in the morning (EYE-TELEPHONE MECHANIC) to steady your nerves or to [...] Appointment PAV A Interventional Radiology [address] [place] [address] 06/27/2025 10:30 AM EDT Appointment P[facility] A Interventional Radiology [address] [place] [address] 07/04/2025 10:30 AM EDT Appointment [facility] A Interventional Radiology [address] [place] [address] 07/04/2025 11:30 AM EDT Appointment [facility] A Interventional Radiology [address] [place] [address] 07/09/2025 2:40 PM EDT Office Visit [facility] Bone & Mineral Metabolism [address], [address] [place] [address] Ar Dominique MD [address] [place] [address] 07/11/2025 10:30 AM EDT Appointment [facility] A Interventional Radiology [address] [place] [address] 07/11/2025 11:30 AM EDT Appointment [facility] Interventional Radiology [address] [place] [address] 07/18/2025 10:30 AM EDT Appointment [facility] A Interventional Radiology [address] [place] [address] 07/18/2025 11:30 AM EDT Appointment [facility] Interventional Radiology [address] [place] [address] 07/25/2025 10:30 AM EDT Appointment [facility] Interventional Radiology [address] [place] [address] 07/25/2025 11:30 AM EDT Appointment [facility] Interventional Radiology [address] [place] [address] 07/31/2025 9:00 AM EDT Office Visit [facility] [address] [place] [address] [place] [address] 08/20/2025 9:30 AM EDT Clinical Support [facility] [place] [address] [place] [address] 08/20/2025 10:30 AM EDT Social Work [facility] [place] [address] [place] [address] [place] [address] 08/20/2025 11:00 AM EDT Office Visit [facility] [place] [address] [place] [address] Jude Duque MD [address] [place] [address] 10/30/2025 1:20 PM EST Office Visit [facility] Endocrinology [address] [place] [address] Shairf Moreno, DPNicole [address] [place] [address] documented as of this encounter [...] documented as of this encounter Care Teams Residential Concierge Relationship Specialty Start Date End Date Alvarez Zimmer MD [address] [place] [address] PCP - General Family Medicine 12/07/24 Lea Fernando [address] [place] [address] After School Coordinator Endocrinology 08/29/24 Rachel Ray APRN [address] [facility] [address] [place] [address] Nurse Practitioner Gastroenterology 09/24/24 documented as of this encounter
--- OUTSIDE RECORDS SUMMARY | 2025-06-24 09:53 | XMS_ITS | Encounter Summary ---
Author Organization [facility] Address [address] [place] [address] Care Team Providers Care Jewelry Sales Name Role Phone Kassie Lea Clarke Unavailable [phone] Rachel Ray FAUCET POLISHER Unavailable [phone] Alvarez Zimmer MD Primary Care Provider [phone] Tamera Isabel REMANUFACTURING TECHNICIAN Unavailable Unavailabl e Reason for Visit * Reason Onset Date Comments Med Refill 04/23/2025 Encounter Details Date Type Department Care Team (Late st Contact Info) Description 04/23/2025 Refill [facility] [address] [place] [address] Alvarez Zimmer MD [address] [place] [address] Altered mental status, unspecified altered [...] do you attend chur or voodoo services? Patient unable to answer [...] Recorded Patient Health Questionnaire-2 Score 2 04/10/2025 [facility] - Occupational [...] time in the past 12 m [facility], were you homeless or living in [...] drink first t kennedy in the morning (EYE-DESIGN SPECIALIST) to steady your nerves or to [...] of zinc sulfate 220 mg sent to [facility] 03/01/2025. Refills remain available at the pharmacy. 90 day supply plus 1 refill of ciprofloxacin 500 mg sent to [facility] 03/01/2025. 1 refill remains available at the pharmacy. 30 day supply plus 3 refills of lactulose 10 gm/15 ml sent to [facility] 02/14/2025. Refills remain available at the pharmacy. documented in this encounter Plan of Treatment Upcoming Encounters Date Type Department Care Team (Late st Contact Info) Description 06/27/2025 9:30 AM EDT Appointment [facility] Interventional Radiology [address] [place] [address] 06/27/2025 10:30 AM EDT Appointment [facility] A Interventional Radiology [address] [place] [address] 07/04/2025 10:30 AM EDT Appointment [facility] A Interventional Radiology [address] [place] [address] 07/04/2025 11:30 AM EDT Appointment [facility] A Interventional Radiology [address] [place] [address] 07/09/2025 2:40 PM EDT Office Visit [facility] Bone & Mineral Metabolism [address], [address] [place] [address] Ar Dominique MD [address] [place] [address] 07/11/2025 10:30 AM EDT Appointment [facility] A Interventional Radiology [address] [place] [address] 07/11/2025 11:30 AM EDT Appointment [facility] A Interventional Radiology [address] [place] [address] 07/18/2025 10:30 AM EDT Appointment [facility] Interventional Radiology [address] [place] [address] 07/18/2025 11:30 AM EDT Appointment [facility] Interventional Radiology [address] [place] [address] 07/25/2025 10:30 AM EDT Appointment [facility] Interventional Radiology [address] [place] [address] 07/25/2025 11:30 AM EDT Appointment [facility] Interventional Radiology [address] [place] [address] 07/31/2025 9:00 AM EDT [facility] [address] [place] [address] Alvarez Zimmer MD [address] [place] [address] 08/20/2025 9:30 AM EDT Clinical Support [facility] [address] [facility] [address] [place] [address] 08/20/2025 10:30 AM EDT Social Work [facility] [address] [place] [address] Deysi Ortega [place], [place] [address] 08/20/2025 11:00 AM EDT Office Visit [facility] [address] [place] [address] Jude Duque MD [address] [place] [address] 10/30/2025 1:20 PM EST Office Visit [facility] Endocrinology [address] [place] [address] Sharif Moreno, ROSY [address] [place] [address] documented as of this encounter [...] documented as of this encounter Care Teams Jewelry Sales Relationship Specialty Start Date End Date Alvarez Zimmer MD [address] [place] [address] PCP - General Family Medicine 12/07/24 Lea Fernando [address] [facility] [address] [place] [address] Tie Buyer Endocrinology 08/29/24 Rachel Ray APRN [address] [place] [address] Nurse Practitioner Gastroenterology 09/24/24 Tamera Isabel LPN VALUE-BASED TRANSFORMATION PROGRAM Licensed Practical Nurse 05/29/25 documented as of this encounter
--- OUTSIDE RECORDS SUMMARY | 2025-06-24 09:53 | XMS_ITS | Encounter Summary ---
Author Organization Healthcare Address [facility] [place] [address] Care Team Providers Care Felt Hooker Name Role Phone Wilma Howard Ambar RUSH Primary Care Provider [phone] Lea Fernando Unavailable [phone] Rachel Ray CONSULTING APPLICATION ENGINEER Unavailable [phone] Taina Lyles CONSULTING APPLICATION ENGINEER Primary Care Provider [phone] Monique Tapia ACETYLENE GAS COMPRESSOR Unavailable Unavailable Alvarez Zimmer MD Primary Care Provider [phone] Shaniqua Trevino ACETYLENE GAS COMPRESSOR Unavailable Unavailable Tamera Isabel ACETYLENE GAS COMPRESSOR Unavailable Unavailabl e Encounter Details Date Type Department Care Team (Late st Contact Info) Description 02/08/2024 Orders Only External Location [address] [place] [phone] Provider, External Social History Tobacco Use Types [...] Appointment [facility] Interventional Radiology [address] [place] [address] 06/27/2025 10:30 AM EDT Appointment [facility] A Interventional Radiology [address] [place] [address] 07/04/2025 10:30 AM EDT Appointment [facility] Interventional Radiology [address] [place] [address] 07/04/2025 11:30 AM EDT Appointment [facility] Interventional Radiology [address] [place] [address] 07/09/2025 2:40 PM EDT Office Visit [facility] Bone & Mineral Metabolism [address], [address] [place] [address] Ar Dominique MD [address] [place] [address] 07/11/2025 10:30 AM EDT Appointment [facility] A Interventional Radiology [address] [place] [address] 07/11/2025 11:30 AM EDT Appointment [facility] Interventional Radiology [address] [place] [address] 07/18/2025 10:30 AM EDT Appointment [facility] Interventional Radiology [address] [place] [address] 07/18/2025 11:30 AM EDT Appointment [facility] Interventional Radiology [address] [place] [address] 07/25/2025 10:30 AM EDT Appointment [facility] Interventional Radiology [address] [place] [address] 07/25/2025 11:30 AM EDT Appointment [facility] Interventional Radiology [address] [place] [address] 07/31/2025 9:00 AM EDT Office Visit [address] [phone] Alvarez Zimmer MD [address] [place] [address] 08/20/2025 9:30 AM EDT Clinical Support [facility] [place] [address] [place] [address] 08/20/2025 10:30 AM EDT Social Work [facility] [place] [address] [place] [address] [place] [address] 08/20/2025 11:00 AM EDT Office Visit [facility] [place] [address] [place] [address] Jude Duque MD [address] [place] [address] 10/30/2025 1:20 PM EST Office Visit [facility] Endocrinology [address] [place] [address] Sharif Moreno, DPNicole [address] [place] [address] documented as of this encounter [...] documented as of this encounter Care Teams Felt Hooker Relationship Specialty Start Date End Date Wilma Howard, CONSULTING APPLICATION ENGINEER [address] [place], [place] [id number] PCP - General 04/03/21 09/30/24 Taina Lyles, CONSULTING APPLICATION ENGINEER [address] [place] [address] [place], [place] [id number] PCP - General 10/01/24 12/06/24 Alvarez Zimmer MD [address] [place] [address] PCP - General Family Medicine 12/07/24 Lea Fernando [address] [facility] [address] [place] [address] Inorganic Chemical Technician Endocrinology 08/29/24 Rachel Ray, CONSULTING APPLICATION ENGINEER [address] [facility] [address] [place] [address] Nurse Practitioner Gastroenterology 09/24/24 Monique Tapia LPN VALUE-[place] [address] TCM Nurse 11/28/24 12/28/24 Shaniqua Trevino LPN TCM Nurse 01/15/25 02/14/25 Tamera Isabel LPN VALUE-BASED TRANSFORMATION PROGRAM Licensed Practical Nurse 05/29/25 documented as of this encounter
[2025-06-24 11:05] LABS: Anion Gap 13.4 mEq/L (5-15); Blood Urea Nitrogen 37 mg/dl (7-17); Calcium 8.9 mg/dl (8.4-10.2); Carbon Dioxide 17 mmol/L (22.0-30.0); Chloride 108 mmol/L (98-107); Creatinine,Serum 2.60 mg/dl (0.52-1.04); Estimated Glomerular Filt Rate 19 ml/min (>60); GFR (African American) 23 ML/MIN (>60); Glucose 186 mg/dl (74-100); Potassium 5.4 mmoL/L (3.5-5.1); Sodium 133 mmol/L (136-145)
== END 2025-06-24 23:59 | disposition home or self-care (01) ==
LOC: LAB 09:42
PROVIDERS: PCP Family Medicine; Visit Provider Internal Medicine Adolescent Medicine
DX: N17.9 Acute kidney failure, unspecified (principal)
CPT/HCPCS: 36415; 80048

== ENCOUNTER 2025-07-31 17:22 | Outpatient (CLI) | payer MEDICARE, MEDICAID, SELFPAY ==
--- OUTSIDE RECORDS SUMMARY | 2014-04-02 05:08 | XMS_ITS | Continuity of Care Document ---
Author Organization [facility] Address [address] [place] [address] Phone Care Team Providers Care Arboriculturist Name Role Phone Kristian Ayala MD Unavailable [...] Visit Diagnoses Date Provider OFFICE/OUTPATI ENT VISIT, [facility] , [address] [place] [address], [address], [place] tel:[phone] [place] Office diabetes (chief complaint)d ecreased vision (chief complaint) Diabetes Mellitus, Adult Onset, UncontrolledSenile nuclear sclerosis Jamie Townsend. [address] [facility], [place], [address]. tel:[phone] Family History Family Member Type Diagnosis Age At Onset Father Problem (finding) degenerative disorder o f macula Father Problem (finding) cataract Payers Payer name Insurance type Covered alliance party ID Annalee de leon(s) [facility] Community Plan CI [id number] Social History Type Description Quantity Date Captured [...]
--- OUTSIDE RECORDS SUMMARY | 2023-07-07 19:50 | XMS_ITS | Encounter Summary ---
Author Organization [facility] Address [address] [place] [address] Care Team Providers Care Middle [employer] Assistant Principal Name Role Phone Taina Lyles APRN Primary Care Provider [phone] Reason for Referral * Hospital - Outpatient (Routine) - Closed Specialty Diagnoses / Procedures Referred By Eder zhu Referred To Contact Diagnoses JONATHAN (obstructive sleep apnea) Obesity (BMI 30-39.9) Nocturnal hypoxia Procedures Polysomnography 4 or More Parameters With CPAP Whitney Agarwal MD [address] [place] [address] Phone: tel: fax: Referral ID Status Reason Start Date Expiration Date Visits Re quested Visits Authorized [id number] Closed 04/14/2023 04/13/2024 1 1 Reason for Visit * Hospital - Outpatient (Routine) - Closed Specialty Diagnoses / Procedures Referred By Eder zhu Referred To Contact Diagnoses JONATHAN (obstructive sleep apnea) Obesity (BMI 30-39.9) Nocturnal hypoxia Procedures Polysomnography 4 or More Parameters With CPAP Whitney Agarwal MD [address] [place] [address] [address] Phone: tel: fax: Referral ID Status Reason Start Date Expiration Date Visits Re quested Visits Authorized [id number] Closed 04/14/2023 04/13/2024 1 1 Encounter Details Date Type Department Care Team (Latest Contact Info) Description 07/07/2023 7:50 PM EDT Hospital Encounter [facility] MEDICAL TECHNICIAN DIAG [facility] [address] [place] [address] Whitney Agarwal MD [address] [facility] [address] [place] [address] JONATHAN (obstructive sleep apnea); Obesity [...] place to sleep or slept in a intermediate (including now)? No 12/01/2022 Abuse Screen Answer [...] SLEEP MEDICINE - 07/09/2023 12:44 PM EDT [facility] Pulmonary, Critical Care, and Sleep Medicine Whitney Agarwal M.D. [address] [facility] [address] Medical Office [address], [place]. [address]. CPAP/BiPAP TITRATION INTERPRETATION Date of Study: 07/07/2023 [...] feel free to contact the office of [facility] Pulmonary, Critical Care and Sleep Medicine at [phone], if you have any questions about this [...] documented as of this encounter Care Teams Middle [employer] Assistant Principal Relationship Specialty Start Date End Date Taina yLles APRN PCP - General Nurse Practitioner 12/30/22 documented as of this encounter
--- OUTSIDE RECORDS SUMMARY | 2025-05-31 12:36 | XMS_ITS | Encounter Summary ---
Author Organization [facility] Address [address] [place] [address] Care Team Providers Care Claims Manager Name Role Phone Lea Fernando Unavailable [phone] Rachel Ray [facility] Unavailable [phone] Alvarez Zimmer MD Primary Care Provider [phone] Tamera Isabel TECHNICAL MAINTENANCE SPECIALIST Unavailable Unavailabl e Reason for Visit * Reason Comments Difficulty Urinating Weakness - Generalized Encounter Details Date Type Department Care Team (Late st Contact Info) Description 05/31/2025 12:36 PM EDT - 05/31/2025 8:07 PM EDT Emergency [facility] Emergency Department [address] [place] [address] Torrie Turner MD [address] [place] [phone] Irina Hernandez MD [address] [place] [phone] Altered mental status, unspecified altered mental status type (Primary Dx) Discharge Disposition: Home or Self [...] How often do you attend chur or adventism services? Patient unable to answer 01/10/2025 Do you belong to any clubs o r organizations such as quaker groups, unions, fraternal or athletic groups, or [...] Recorded Patient Health Questionnaire-2 Score 1 05/07/2025 PHQ-9 Answer Date Recorded Patient Health Questionnaire-9 Score 0 03/06/2025 Humiliation, Afraid, Rape, and Kick questionnair [...] How often do you attend chur or adventism services? Never 05/29/2025 Do you belong to any clubs o r organizations such as quaker groups, unions, fraternal or athletic groups, or [...] more drinks on one occasion? Never 05/29/2025 [facility] - [...] any time in the past 12 m [facility], were you homeless or living in a penitentiary (including now)? 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) to steady your nerves or to [...] Sign Reading Time Taken Comments Blood Pressure 109/57 05/31/2025 7:43 PM EDT Pulse 85 05/31/2025 7:43 PM EDT Temperature 36.4 C (97.6 F) 05/31/2025 7:43 PM EDT Respiratory Rate 18 05/31/2025 7:43 PM EDT Oxygen Saturation 97% 05/31/2025 7:43 PM EDT Inhaled Oxygen Concentration - - Weight 87.9 kg (193 lb 12.6 oz) 025 12:54 PM EDT Height - - Body Mass Index 32.25 05/30/2025 9:45 AM EDT documented in this encounter Functional Status * Calculated C-SSRS Risk Score (Lifetime/Recent) Answer Date of Assessment Author No Risk Indicated 05/31/2025 12:55 PM EDT Deysi Blanca RN * Question Answer Date of Assessment Author 1. Wish to be (Past 1 Month) No 025 12:55 PM EDT Deysi Blanca RN 2. Non-Specific Active Suici liz Thoughts (Past 1 Month) No 05/31/2025 12:55 PM EDT Bridger Blanca RN 6. Suicidal Behavior (Lifetime) No 12:55 PM EDT Deysi Blanca RN documented as of this encounter Discharge Instructions * Discharge Instructions* Kelly Chavis MD - 05/31/2025 7:29 PM EDT Please continue to take your medications as prescribed. You can add a magnesium supplement for low magnesium. Please return to ED if your symptoms worsen, change in location, change in severity, new symptoms develop or if you become concerned for your health. documented in this encounter Medications at Time of Discharge Abaloparatide (Tymlos) 3120 MCG/1.56ML solution pen-injector Inject 80 mcg under the skin daily. 1.56 mL 2 04/22/2025 calcium carbonate EX (Tums E-X) 750 MG chewable tablet Chew 1 tablet (750 mg) 1 (one) time each day. 12/05/2024 cholecalciferol (Vitamin D-3) 25 MCG (1000 UT) tablet Take 1 tablet by mouth daily. 90 tablet 2 04/01/2025 ciprofloxacin (Cipro) 500 MG tabletIndications:A ltered mental status, unspecified altered mental status type Take 1 tablet by mouth daily. 90 tablet 1 03/01/2025 lactulose (Chronulac) 10 GM/15ML solution Take 30 mL by mouth 3 times a day. 2700 mL 11 05/07/2025 Magnesium Oxide, Laxative, 500 MG tabletIndications:H ypomagnesemia Take 1 tablet by mouth daily. 90 tablet 3 04/01/2025 Multiple Vitamins-Minerals (COMPLETE WOMENS PO) Take 1 tablet by mouth in the morning. [place] 0.6 MG/0.6ML solution auto-injectorIndica tions:Type 2 diabetes mellitus with hyperglycemia, with long-term current use of insulin ([facility]) Inject 0.6 mg under the skin 1 [...] times a day. 60 tablet 05/03/2025 5 azelastine (Astelin) 0.1 % nasal sprayIndications:ET D (Eustachian tube dysfunction), bilateral Administer 1 spray into each nostril 2 times a day. Use in each nostril as directed 30 mL 12 04/17/2025 5 B-D UF III MINI PEN NEEDLES 31G X 5 MM misc 04/22/2025 5 B-D ULTRAFINE III SHORT PEN 31G X 8 MM misc 01/14/2025 5 Blood Glucose Monitoring Suppl (Blood Glucose Monitor System) w/Device kit Test blood sugars twice a day. Dx E11.65 1 kit 01/18/2025 5 calcitriol (Rocaltrol) 0.25 MCG capsuleIndications: Chronic kidney disease, stage 3b (CMS/HCC) Take 1 capsule by mouth daily. 30 capsule 2 04/22/2025 5 capsaicin (Zostrix) 0.025 % cream Apply thin layer to feet nightly WITH GLOVES 56.6 g 1 04/24/2025 5 cetirizine (ZyrTEC) 10 MG tabletIndications:E TD (Eustachian tube dysfunction), bilateral Take 1 tablet by mouth daily. 30 tablet 2 04/17/2025 5 ergocalciferol (Vitamin D-2) 1.25 MG (27911 UT) capsuleIndications: Vitamin D deficiency Take 1 capsule by mouth 1 time per week. 8 capsule 3 04/10/2025 5 fluticasone (Flonase) 50 MCG/ACT nasal sprayIndications:ET D (Eustachian tube dysfunction), bilateral Administer 1 spray into each nostril daily. Shake gently. Before first use, prime pump. After use, clean tip and replace cap. 16 g 04/17/2025 5 glucose blood test strip Use to test blood sugars twice a day E11.65 100 each 1 02/12/2025 5 insulin aspart (NovoLOG Flexpen) 100 UNIT/ML injection Inject 24 units before meals, 12 units before small meals/snacks plus 4 units for every 50 > 150. MDD: 100 units 04/09/2025 5 Insulin Pen Needle 31G X 6 MM misc 1 each daily. Use to administer Tymlos daily 100 each 11 04/22/2025 5 Lancets misc Use to test blood sugars twice a day E11.65 100 each 1 02/12/2025 5 Lantus SoloStar 100 UNIT/ML injection pen Inject 52 units every morning. Titrate as directed. MDD: 60 units 04/23/2025 5 midodrine (Proamatine) 10 MG tablet Take 2 tablets by mouth 3 times a day. 180 tablet 3 05/07/2025 5 omeprazole (PriLOSEC) [address] capsule Take 1 capsule by mouth 2 times a day. Do not crush or chew. 60 capsule 1 04/22/2025 5 ondansetron ODT (Zofran-ODT) 8 MG disintegrating tablet Dissolve 1 tablet on the tongue every 8 hours as needed for nausea or vomiting. 30 tablet 1 04/01/2025 5 pen needle, diabetic (BD Pen Needle Micro U/F) 32G X 6 MM misc Use to inject insulin 4 times per day. 400 each 3 11/16/2024 5 prochlorperazine (Compazine) 5 MG tablet Take 1 tablet by mouth every 8 hours as needed for nausea or vomiting. 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 60 tablet 11 05/07/2025 5 rosuvastatin (Crestor) 20 MG tablet Take 1 tablet by mouth nightly. 08/29/2020 5 documented as of this encounter Miscellaneous Notes * ED Notes - Emma Mancini - 05/31/2025 8:07 PM EDT Pt left with all belongings. * ED Provider Notes - Kelly Chavis MD - 05/31/2025 12:36 PM EDT Images from the original note were not included. - HPI Chief Complaint Patient presents with Difficulty Urinating Weakness - Generalized 64 y.o female w/ PMHx of CKD, cirrhosis, and T2DM who presents with AMS. She reports onset of confusion last night around 8pm. She reports that she did not know where she was or how to use her phone to call for help. She reports still feeling confused this morning and walked to a neighbor's house for help. She reports missing approximately 4 doses of lactulose in the past few days. Per collateralat bedside, patient becomes altered when she misses her medications. Denies nausea, vomiting, abdominal pain, chest pain, shortness of breath. Patient History Past Medical History[1] Surgical History[2] Family History[3] Social History[4] Allergies: Allergies[5] Physical Exam ED Triage Vitals Temp Pulse Resp BP -- -- -- -- SpO2 Temp src Heart Rate Source Patient Position -- -- -- -- BP Location FiO2 (%) -- -- Physical Exam Constitutional: General: She is not in acute distress. Appearance: She is ill-appearing (Chronically). HENT: Head: Normocephalic and atraumatic. Nose: Nose normal. Mouth/Throat: Mouth: Mucous membranes are moist. Eyes: Extraocular Movements: Extraocular movements intact. Cardiovascular: Rate and Rhythm: Normal rate and regular rhythm. Pulses: Normal pulses. Pulmonary: Effort: Pulmonary effort is normal. No respiratory distress. Breath sounds: Normal breath sounds. Abdominal: General: Abdomen is flat. There is no distension. Palpations: Abdomen is soft. Tenderness: There is no abdominal tenderness. There is no guarding or rebound. Musculoskeletal: General: No tenderness. Normal range of motion. Cervical back: Normal range of motion. Skin: General: Skin is warm and dry. Neurological: Mental Status: She is alert and oriented to person, place, and time. Psychiatric: Mood and Affect: Mood normal. Shamir Coma Scale Score: 15 ED Course & MDM - Assessment: 64 y.o. female presents to ED with complaint of AMS. It should be noted that the chronic conditionsincludes cirrhosis, which currently is not at goal therapy. This complicates the clinical picture because it Comorbidities: may be exacerbating symptoms Differential Diagnosis: hyponatremia, hypocalcemia, hepatic encephalopathy, hypertensive encephalopathy, UTI, others In order to fully explore the differential diagnosis the following treatments and tests were ordered: ED Medication Administration from 05/31/2025 1236 to 06/01/20252005 Date/Time Order Dose Route Action 05/31/2025 1559 EDT lactulose (Chronulac) 10 GM/15ML solution 20 g 20 g Oral Given All Other Orders Ordered Status Ordering Provider 05/31/25 1852 Urinalysis Microscopic Examination Once Final result IRINA HERNANDEZ 05/31/25 1842 Urinalysis with reflex microscopic AND reflex culture (IF UTI SUSPECTED) STAT Final result IRINA HERNANDEZ 05/31/25 1842 Urinalysis with reflex microscopic (Culture NOT Included) PROCEDURE ONCE Final result IRINA HERNANDEZ 05/31/25 1842 Urine Subramanian Panel PROCEDURE ONCE Final result IRINA HERNANDEZ 05/31/25 1537 ECG Adult Once Preliminary result IRINA HERNANDEZ 05/31/25 1513 Urinalysis Microscopic Examination Once Final result KELLY CHAVIS 05/31/25 1404 Urinalysis with reflex microscopic AND reflex culture (IF UTI SUSPECTED) STAT Final result KELLY CHAVIS 05/31/25 1404 Urinalysis with reflex microscopic (Culture NOT Included) PROCEDURE ONCE Final result KELLY CHAVIS 05/31/25 1404 Urine Subramanian Panel PROCEDURE ONCE Final result KELLY CHAVIS 05/31/25 1340 CBC w/diff STAT Final result KELLY CHAVIS 05/31/25 1340 PT-INR STAT Final result KELLY CHAVIS 05/31/25 1340 Ammonia STAT Final result KELLY CHAVIS 05/31/25 1340 CMP STAT Final result KELLY CHAVIS 05/31/25 1340 Magnesium STAT Final result KELLY CHAVIS 05/31/25 1340 Lipase STAT Final result KELLY CHAVIS 05/31/25 1340 Blood gas panel, venous STAT Final result KELLY CHAVIS ED Course as of 06/01/252005May 31, 2025 1648 On initial evaluation, patient is hemodynamically stable. Patient reports onset of confusion last night with the inability to use her phone, which is not typical for her. Patient has history of cirrhosis and hepatic encephalopathy. She reports for missed doses of lactulose over the last week. [TV] 1649 CBC w/diff(!) Leukopenia. Anemia. Thrombocytopenia. All at baseline for patient. [TV] 1649 CMP(!) Elevated creatinine, alk-phos and T bili. [TV] 1650 PT-INR(!) Elevated [TV] 1650 Urinalysis with reflex microscopic AND reflex culture (IF UTI SUSPECTED)(!) Suspicious for contaminated sample due to elevated squamous cells. [TV] 1727 Ammonia: 39 [TV] 1935 Urinalysis with reflex microscopic AND reflex culture (IF UTI SUSPECTED)(!) Low suspicion for infection. [TV] 2002 Had interactive discussion that patient's overall workup was reassuring. Discussed that even though her ammonia is only 39, her confusion is most likely secondary to missed doses of lactulose and her other medications. Patient reports that she tries to remember to take her medications; however, sometimes she does not remember if she took them or not. Discussed options on how to ensure patient can take medicine. Patient family at bedside was very supportive. Patient reports that she feels almost back to baseline and would like to be discharged home. She reports that her mother will be staying the night with her to ensure she is safe at home. Patient remained hemodynamically stable. All questions and concerns were discussed prior to discharge. Return precautions discussed. [TV] ED Course User Index [TV] Kelly Chavis MD Clinical Impressions as of 06/01/252005 Altered mental status, unspecified altered mental status type Social Determinates of Health Risks (including Economic Stability, Education and level of understanding, Healthcare access and quality and concerning social factors): None identified on this visit Ultimately, this patient was Was discharged Home (Discharge) The encounter diagnosis was Altered mental status, unspecified altered mental status type. . Patient was counseled on the diagnoses. Discharge medications if any are listed below. Listed medications are thought be either curative for listed diagnoses or will help control ongoing symptoms. Patient is requested to follow up with Patient's Primary Care Provider in order to obtain routinefollow-up. Instructions on follow up as well as precautions to return to the ER provided verbally by the EM provider, as well as written in patients discharge education packet. ED Prescriptions None Discharge Instructions Please continue to take your medications as prescribed. You can add a magnesium supplement for low magnesium. Please return to ED if your symptoms worsen, change in location, change in severity, new symptoms develop or if you become concerned for your health. Disposition Discharge AVS ([facility]alian Snapshot) - Printed 05/31/2025 - [1] Past Medical History: Diagnosis Date ADHD (attention deficit hyperactivity disorder) Allergic Anxiety disorder, unspecified Anxiety Bleeding gums Blood in urine Cataract Chronic kidney disease Cirrhosis (CMS/HCC) Colon cancer screening 09/20/2019 Added automatically from request for surgery [id number] Coronary artery disease Depression 1996 Diabetes mellitus type 2 in obese 04/22/2015 [...] 1979 BLADDER SURGERY N/A Bladder surgery from [facility] BREAST BIOPSY 2011 BREAST SURGERY 2010 BUNIONECTOMY Right CATARACT EXTRACTION Bilateral 2016 CHOLECYSTECTOMY 1980 ESOPHAGOGASTRODUODENOSCOPY HYSTERECTOMY N/A Hysterectomy from [facility] KNEE SURGERY Bilateral ORAL SURGERY N/A Oral surgery from [facility] OTHER SURGICAL HISTORY 2015 ROOT CANAL WISDOM TOOTH EXTRACTION [3] Family History Problem Relation Name Age of Onset Arthritis Mother Kariem Singletary Diabetes Mother Karime Singletary Hypertension Mother [...] Anxiety disorder Son Obesity Son Depression Son Jp Zimmer Asthma Son Jp Zimmer Mental illness Son Jp Zimmer Depression Son Viral Zimmer Diabetes Son Viral Zimmer [4] Tobacco Use Smoking status: Never Passive exposure: Never Smokeless tobacco: Never Vaping Use Vaping status: Never Used Substance Use Topics Alcohol use: Not Currently Drug use: Never [5] No Known Allergies Kelly Chavis MD Resident 06/01/252006 Cosigned by Torrie Turner MD at 06/02/2025 8:56 AM EDT Associated attestation - Torrie Turner MD - 06/02/2025 8:56 AM EDT I saw and evaluated the patient with the resident/fellow. I discussed the case with the resident/fellow and agree with the findings and plan as documented. * ED Triage Notes - Deysi Blanca RN - 05/31/2025 12:36 PM EDT Medic stated that pt has not felt well and confused since 8pm yesterday. Pt was seen here for [facility]. Pt lives alone but walked to a [facility] house to call for help due to her phone not working. Pt stated that she has had burning with urination and a strong odor to her urine. Denies cp, soa, dizziness at this time. Pt stated that she just feels weak all over. documented in this encounter Plan of Treatment Upcoming Encounters Date Type Department Care Team (Late st Contact Info) Description 08/01/2025 10:00 AM EDT Appointment [facility] Interventional Radiology [address] [place] [phone] 08/01/2025 11:00 AM EDT Appointment [facility] Interventional Radiology [address] [phone] 08/08/2025 11:15 AM EDT Appointment [facility] Interventional Radiology [address] [phone] 08/08/2025 12:15 PM EDT Appointment [facility] Interventional Radiology [address] [phone] 2025 10:00 AM EDT Appointment [facility] Interventional Radiology [address] [address] 2025 11:00 AM EDT Appointment [facility] Interventional Radiology [address] [address] 08/20/2025 9:30 AM EDT Clinical Support [facility] [address] [place] [phone] 08/20/2025 10:30 AM EDT Social Work [facility] [address] [phone] [place] [address] 08/20/2025 11:00 AM EDT Office Visit [facility] [address] [place] [address] Jude Duque MD [address] [place] [address] documented as of this encounter Procedures Procedure Name Priority Date/Time Associated Diagnosis Comments URINALYSIS WITH REFLEX MICROSCOPIC AND CULTURE STAT 05/31/2025 6:43 PM EDT URINE SUBRAMANIAN PANEL STAT 05/31/2025 6:43 PM EDT URINALYSIS MICROSCOPIC FOR UA REFLEX STAT 05/31/2025 6:43 PM EDT URINALYSIS WITH REFLEX MICROSCOPIC STAT 05/31/2025 6:43 PM EDT PROTHROMBIN TIME(PT) / INR STAT 05/31/2025 4:01 PM EDT CBC WITH AUTO DIFFERENTIAL STAT 05/31/2025 4:01 PM EDT MAGNESIUM, PLASMA STAT 05/31/2025 4:0 1 PM EDT LIPASE, PLASMA STAT 05/31/2025 4:01 PM EDT BLOOD GAS PANEL, VENOUS STAT 05/31/2025 4:01 PM EDT AMMONIA, PLASMA STAT 05/31/2025 4:01 PM EDT COMPREHENSIVE METABOLIC PANEL, PLASMA STAT 05/31/2025 4:01 PM EDT ECG ADULT STAT 05/31/2025 3:43 PM EDT URINE SUBRAMANIAN PANEL STAT 05/31/2025 3:08 PM EDT URINALYSIS WITH REFLEX MICROSCOPIC AND CULTURE STAT 05/31/2025 3:06 PM EDT URINALYSIS MICROSCOPIC FOR UA REFLEX STAT 05/31/2025 3:06 PM EDT URINALYSIS WITH REFLEX MICROSCOPIC STAT 05/31/2025 3:06 PM EDT documented in this encounter Results * Urinalysis Microscopic Examination (05/31/2025 6:43 PM EDT) Urine Urine specimen obtained by clean catch procedure / Unknown Non-blood Collection / Unknown 05/31/2025 6:43 PM EDT 05/31/2025 6:46 PM EDT us Irina Hernandez MD LAB URINE ORDERABLES Final Re sult [facility] [address] [place] [address] * Urine Subramanian Panel (05/31/2025 6:43 PM EDT) Extra Reflex urine culture not indicated 05/31/2025 9:01 PM EDT [facility] Urine Urine specimen obtained by clean catch procedure / Unknown Non-blood Collection / Unknown 05/31/2025 6:43 PM EDT 05/31/2025 7:14 PM EDT us Irina Hernandez MD LAB URINE ORDERABLES Final Re sult [facility] [address] [place] [address] * (ABNORMAL) Urinalysis with reflex microscopic (Culture NOT Included) (05/31/2025 6:43 PM EDT) Color, Urine Dark Yellow LAB URINALYSIS - AUTOMATED METHOD 05/31/2025 7:27 PM EDT [facility] Clarity, Urine Clear LAB URINALYSIS - AUTOMATED METHOD 05/31/2025 7:27 PM EDT [facility] Spec [place], Urine 1.029 1.005 - 1.030 LAB URINALYSIS - AUTOMATED METHOD 05/31/2025 7:27 PM EDT [facility] pH, Urine <=5.0(L) 5.0 - 8.0 LAB URINALYSIS - AUTOMATED METHOD 05/31/2025 7:27 PM EDT [facility] Protein, Urine Trace(A) Negative mg/dL LAB URINALYSIS - AUTOMATED METHOD 05/31/2025 7:27 PM EDT [facility] Glucose, Urine Negative Negative mg/dL LAB URINALYSIS - AUTOMATED METHOD 05/31/2025 7:27 PM EDT [facility] Ketones, Urine Trace(A) Negative mg/dL LAB URINALYSIS - AUTOMATED METHOD 05/31/2025 7:27 PM EDT [facility] Blood, Urine Small(A) Negative LAB URINALYSIS - AUTOMATED METHOD 05/31/2025 7:27 PM EDT [facility] Bilirubin, Urine Small(A) Negative LAB URINALYSIS - AUTOMATED METHOD 05/31/2025 7:27 PM EDT [facility] Urobilinogen, Urine 1.0 0.2 to 1.0 mg/dL LAB URINALYSIS - AUTOMATED METHOD 05/31/2025 7:27 PM EDT [facility] Leukocytes, Urine Trace(A) Negative LAB URINALYSIS - AUTOMATED METHOD 05/31/2025 7:27 PM EDT [facility] Nitrite, Urine Negative Negative LAB URINALYSIS - AUTOMATED METHOD 05/31/2025 7:27 PM EDT [facility] RBC, Urine 4 - 10(A) 0 to 3 /HPF LAB URINALYSIS - AUTOMATED METHOD 05/31/2025 7:27 PM EDT [facility] Comment:This result was prev iously suppressed from the chart. WBC, Urine 0 - 5 0 to 5 /HPF LAB URINALYSIS - AUTOMATED METHOD 05/31/2025 7:27 PM EDT [facility] Comment:This result was prev iously suppressed from the chart. Squamous Epithelial Cells 3 - 5 0 to 5 /HPF LAB URINALYSIS - AUTOMATED METHOD 05/31/2025 7:27 PM EDT [facility] Comment:This result was prev iously suppressed from the chart. Hyaline Casts 3 - 5 0 to 5 /LPF LAB URINALYSIS - AUTOMATED METHOD 05/31/2025 7:27 PM EDT [facility] Comment:This result was prev iously suppressed from the chart. Bacteria, Urine Negative Negative LAB URINALYSIS - AUTOMATED METHOD 05/31/2025 7:27 PM EDT [facility] Comment:This result was prev iously suppressed from the chart. Urine Urine specimen obtained by clean catch procedure / Unknown Non-blood Collection / Unknown 05/31/2025 6:43 PM EDT 05/31/2025 6:46 PM EDT us Irina Hernandez MD LAB URINE ORDERABLES Final Re sult [facility] [address] [place] [address] * Ammonia (05/31/2025 4:01 PM EDT) Ammonia 39 11 - 51 umol/L 05/31/2025 4:55 PM EDT [facility] Blood Venous blood specimen / Unknown Venipuncture / Unknown 05/31/2025 4:01 PM EDT 05/31/2025 4:11 PM EDT Torrie Turner MD LAB BLOOD ORDERABLES Final Resu lt Performing Organization Address [facility] Co de Phone Number [facility] [address] [place] [address] * (ABNORMAL) PT-INR (05/31/2025 4:01 PM EDT) Prothrombin Time 22.1(H) 12.0 - 14.3 sec 05/31/2025 4:21 PM EDT [facility] INR 2.0(H) 0.9 - 1.1 05/31/2025 4:21 PM EDT [facility] Blood Venous blood specimen / Unknown Venipuncture / Unknown 05/31/2025 4:01 PM EDT 05/31/2025 4:06 PM EDT Narrative [facility] - 05/31/2025 4:21 PM EDT OPTIMAL INR RANGES FOR PATIENT ON ORAL ANTICOAGULANT THERAPY Prevention of venous thromboembolism INR 2.0 to 3.0 In patients with heart disease: Atrial fibrillation INR 2.0 to 3.0 Valvular heart disease INR 2.0 to 3.0 Tissue heart valves INR 2.0 to 3.0 Mechanical prosthetic valves INR 2.5 to 3.5 Prevention of recurrent GA INR 2.5 to 3.5 Torrie Turner MD LAB BLOOD ORDERABLES Final Resu lt Performing Organization Address [facility] Co de Phone Number [facility] [address] [place] [address] * (ABNORMAL) CBC w/diff (05/31/2025 4:01 PM EDT) WBC Count 2.85(L) 3.70 - 10.30 10*3/uL LAB HEMATOLOGY METHOD 05/31/2025 4:08 PM EDT [facility] RBC Count 2.79(L) 3.90 - 5.20 10*6/uL LAB HEMATOLOGY METHOD 05/31/2025 4:08 PM EDT [facility] HGB 8.7(L) 11.2 - 15.7 g/dL LAB HEMATOLOGY METHOD 05/31/2025 4:08 PM EDT [facility] HCT 26.3(L) 34.0 - 45.0 % LAB HEMATOLOGY METHOD 05/31/2025 4:08 PM EDT [facility] Platelet Count 44(L) 155 - 369 10*3/uL LAB HEMATOLOGY METHOD 05/31/2025 4:08 PM EDT [facility] MCV 94 79 - 98 fL LAB HEMATOLOGY METHOD 05/31/2025 4:08 PM EDT [facility] MCH 31.2 26.0 - 32.0 pg LAB HEMATOLOGY METHOD 05/31/2025 4:08 PM EDT [facility] MCHC 33.1 30.7 - 35.5 g/dL LAB HEMATOLOGY METHOD 05/31/2025 4:08 PM EDT [facility] RDW 18.5(H) 11.5 - 14.5 % LAB HEMATOLOGY METHOD 05/31/2025 4:08 PM EDT [facility] MPV 10.3 8.8 - 12.5 fL LAB HEMATOLOGY METHOD 05/31/2025 4:08 PM EDT [facility] nRBC 0.0 <=0.0 per 100 WBCs LAB HEMATOLOGY METHOD 05/31/2025 4:08 PM EDT [facility] Differential Type Automated LAB HEMATOLOGY METHOD 05/31/2025 4:08 PM EDT [facility] Neutrophils % 57 % LAB HEMATOLOGY METHOD 05/31/2025 4:08 PM EDT [facility] Lymphocytes % 24 % LAB HEMATOLOGY METHOD 05/31/2025 4:08 PM EDT [facility] Monocytes % 14 % LAB HEMATOLOGY METHOD 05/31/2025 4:08 PM EDT [facility] Eosinophils % 4 % LAB HEMATOLOGY METHOD 05/31/2025 4:08 PM EDT [facility] Basophils % 1 % LAB HEMATOLOGY METHOD 05/31/2025 4:08 PM EDT [facility] Immature Granulocytes % 0 % LAB HEMATOLOGY METHOD 05/31/2025 4:08 PM EDT [facility] Neutrophils Absolute 1.63 1.60 - 6.10 10*3/uL LAB HEMATOLOGY METHOD 05/31/2025 4:08 PM EDT [facility] Lymphocytes Absolute 0.68(L) 1.20 - 3.90 10*3/uL LAB HEMATOLOGY METHOD 05/31/2025 4:08 PM EDT [facility] Monocytes Absolute 0.40 0.30 - 0.90 10*3/uL LAB HEMATOLOGY METHOD 05/31/2025 4:08 PM EDT [facility] Eosinophils Absolute 0.11 0.00 - 0.50 10*3/uL LAB HEMATOLOGY METHOD 05/31/2025 4:08 PM EDT [facility] Basophils Absolute 0.03 0.00 - 0.10 10*3/uL LAB HEMATOLOGY METHOD 05/31/2025 4:08 PM EDT [facility] Immature Granulocytes Absolute 0.00 0.00 - 0.06 10*3/uL LAB HEMATOLOGY METHOD 05/31/2025 4:08 PM EDT [facility] Blood Venous blood specimen / Unknown Venipuncture / Unknown 05/31/2025 4:01 PM EDT 05/31/2025 4:06 PM EDT Narrative [facility] - 05/31/2025 4:08 PM EDT Therapeutic decision making should be based on absolute values, rather than percentages. Torrie Turner MD LAB BLOOD ORDERABLES Final Resu lt [facility] [address] [place] [address] * (ABNORMAL) Blood gas panel, venous (05/31/2025 4:01 PM EDT) pH, Venous 7.41 7.32 - 7.43 LAB HEMATOLOGY METHOD 05/31/2025 4:07 PM EDT [facility] pCO2, Venous 35(L) 37 - 52 mmHg LAB HEMATOLOGY METHOD 05/31/2025 4:07 PM EDT [facility] pO2, Venous 28 25 - 40 mmHg LAB HEMATOLOGY METHOD 05/31/2025 4:07 PM EDT [facility] SO2, Measured, Venous 45(L) 65 - 80 % LAB HEMATOLOGY METHOD 05/31/2025 4:07 PM EDT [facility] Base Excess, Venous -2.0 -2.0 - 3.0 mmol/L LAB HEMATOLOGY METHOD 05/31/2025 4:07 PM EDT [facility] Bicarbonate, Calculated, Venous 22 22 - 26 mmol/L LAB HEMATOLOGY METHOD 05/31/2025 4:07 PM EDT [facility] Hematocrit, Whole Blood 27.5(L) 34.0 - 45.0 % LAB HEMATOLOGY METHOD 05/31/2025 4:07 PM EDT [facility] Sodium, Whole Blood 142 136 - 145 mmol/L LAB HEMATOLOGY METHOD 05/31/2025 4:07 PM EDT [facility] Potassium, Whole Blood 4.2 3.6 - 4.9 mmol/L LAB HEMATOLOGY METHOD 05/31/2025 4:07 PM EDT [facility] Chloride, Whole Blood 110(H) 97 - 107 mmol/L LAB HEMATOLOGY METHOD 05/31/2025 4:07 PM EDT [facility] Glucose, Whole Blood 183(H) 74 - 99 mg/dL LAB HEMATOLOGY METHOD 05/31/2025 4:07 PM EDT [facility] Lactate, Venous, Whole Blood 1.8 0.5 - 2.2 mmol/L LAB HEMATOLOGY METHOD 05/31/2025 4:07 PM EDT [facility] Ionized Calcium, Whole Blood 4.4(L) 4.6 - 5.1 mg/dL LAB HEMATOLOGY METHOD 05/31/2025 4:07 PM EDT [facility] Blood Venous blood specimen / Unknown Venipuncture / Unknown 05/31/2025 4:01 PM EDT 05/31/2025 4:06 PM EDT us Torrie Turner MD LAB BLOOD ORDERABLES Final Resu lt [facility] [address] [place] [address] * Lipase (05/31/2025 4:01 PM EDT) Lipase, Plasma 62 19 - 63 U/L 05/31/2025 4:26 PM EDT [facility] Blood Venous blood specimen / Unknown Venipuncture / Unknown 05/31/2025 4:01 PM EDT 05/31/2025 4:06 PM EDT us Torrie Turner MD LAB BLOOD ORDERABLES Final Resu lt Performing Organization Address [facility]/ZIP Co de Phone Number [facility] [address] [place] [address] * (ABNORMAL) Magnesium (05/31/2025 4:01 PM EDT) Magnesium, Plasma 1.3(L) 1.9 - 2.4 mg/dL 05/31/2025 4:26 PM EDT [facility] Blood Venous blood specimen / Unknown Venipuncture / Unknown 05/31/2025 4:01 PM EDT 05/31/2025 4:06 PM EDT Torrie Turner MD LAB BLOOD ORDERABLES Final Resu lt Performing Organization Address [facility] Co de Phone Number [facility] [address] [place] [address] * (ABNORMAL) CMP (05/31/2025 4:01 PM EDT) Glucose, Plasma 181(H) 74 - 99 mg/dL 05/31/2025 4:26 PM EDT [facility] BUN, Plasma 29(H) 8 - 23 mg/dL 05/31/2025 4:26 PM EDT [facility] Creatinine, Plasma 1.34(H) 0.60 - 1.10 mg/dL 05/31/2025 4:26 PM EDT [facility] BUN/Creatinine Ratio 22 05/31/2025 4:26 PM EDT [facility] Sodium, Plasma 140 136 - 145 mmol/L 05/31/2025 4:26 PM EDT [facility] Potassium, Plasma 4.3 3.6 - 4.9 mmol/L 05/31/2025 4:26 PM EDT [facility] Chloride, Plasma 109(H) 97 - 107 mmol/L 05/31/2025 4:26 PM EDT [facility] CO2, Plasma 19(L) 22 - 29 mmol/L 05/31/2025 4:26 PM EDT [facility] Anion Gap 12 6 - 16 mmol/L 05/31/2025 4:26 PM EDT [facility] Total Calcium, Plasma 8.5(L) 8.9 - 10.2 mg/dL 05/31/2025 4:26 PM EDT [facility] Total Protein 6.6 6.3 - 7.9 g/dL 05/31/2025 4:26 PM EDT [facility] Albumin, Plasma 3.5 3.5 - 5.2 g/dL 05/31/2025 4:26 PM EDT [facility] AST, Plasma 30 10 - 35 U/L 05/31/2025 4:26 PM EDT [facility] ALT, Plasma 15 10 - 35 U/L 05/31/2025 4:26 PM EDT [facility] Alkaline Phosphatase, Plasma 167(H) 46 - 142 U/L 05/31/2025 4:26 PM EDT [facility] Total Bilirubin, Plasma 4.1(H) 0.2 - 1.1 mg/dL 05/31/2025 4:26 PM EDT [facility] eGFRcr 44.9 mL/min/1.7 3m*2 05/31/2025 4:26 PM EDT [facility] Comment:Reported eGFRcr in m L/min/1.73m2 is based the CKD-EPI 2020 equation that does not use a race coefficient. Blood Venous blood specimen / Unknown Venipuncture / Unknown 05/31/2025 4:01 PM EDT 05/31/2025 4:06 PM EDT us Torrie Turner MD LAB BLOOD ORDERABLES Final Resu lt [facility] [address] [place] [address] * ECG Adult (05/31/2025 3:43 PM EDT) EKG DIAGNOSIS CLASS Abnormal MUSE ECG Ventricular Rate 67 BPM MUSE ECG Atrial Rate 67 BPM MUSE ECG MS Interval 116 ms MUSE ECG QRSD Interval 88 ms MUSE ECG QT Interval 466 ms MUSE ECG QTC Interval 492 ms MUSE ECG P [place] 40 degrees MUSE ECG R [place] -36 degrees MUSE ECG T Wave [place] -2 degrees MUSE ECG Diagnosis Normal sinus rhythm MUSE ECG Diagnosis Left axis deviation MUSE ECG Diagnosis Cannot rule out Anterior infarct , age undetermined MUSE ECG Diagnosis MUSE ECG Diagnosis MUSE ECG Diagnosis Confirmed by Cecelia Leal ([id number]) on 06/02/2025 7:31:57 PM MUSE ECG 05/31/2025 3:43 PM EDT 06/02/2025 7:31 PM EDT Irina Hernandez MD ECG ORDERABLES Final Result Performing Organization Address City/[facility] Co de Phone Number MUSE ECG * Urine Subramanian Panel (05/31/2025 3:08 PM EDT) Extra Reflex urine culture not indicated 05/31/2025 5:01 PM EDT [facility] Urine Urine specimen obtained by clean catch procedure / Unknown Non-blood Collection / Unknown 05/31/2025 3:08 PM EDT 05/31/2025 3:41 PM EDT Torrie Turner MD LAB URINE ORDERABLES Final Resu lt Performing Organization Address [facility] de Phone Number [facility] [address] [place] [address] * Urinalysis Microscopic Examination (05/31/2025 3:06 PM EDT) Urine Urine specimen obtained by clean catch procedure / Unknown Non-blood Collection / Unknown 05/31/2025 3:06 PM EDT 05/31/2025 3:10 PM EDT Torrie Turner MD LAB URINE ORDERABLES Final Resu lt Performing Organization Address [facility] Co de Phone Number [facility] [address] [place] [address] * (ABNORMAL) Urinalysis with reflex microscopic (Culture NOT Included) (05/31/2025 3:06 PM EDT) Color, Urine Dark Yellow LAB URINALYSIS - AUTOMATED METHOD 05/31/2025 3:53 PM EDT [facility] Clarity, Urine Cloudy LAB URINALYSIS - AUTOMATED METHOD 05/31/2025 3:53 PM EDT [facility] Spec [place], Urine 1.025 1.005 - 1.030 LAB URINALYSIS - AUTOMATED METHOD 05/31/2025 3:53 PM EDT [facility] pH, Urine <=5.0(L) 5.0 - 8.0 LAB URINALYSIS - AUTOMATED METHOD 05/31/2025 3:53 PM EDT [facility] Protein, Urine Trace(A) Negative mg/dL LAB URINALYSIS - AUTOMATED METHOD 05/31/2025 3:53 PM EDT [facility] Glucose, Urine Negative Negative mg/dL LAB URINALYSIS - AUTOMATED METHOD 05/31/2025 3:53 PM EDT [facility] Ketones, Urine Trace(A) Negative mg/dL LAB URINALYSIS - AUTOMATED METHOD 05/31/2025 3:53 PM EDT [facility] Blood, Urine Trace(A) Negative LAB URINALYSIS - AUTOMATED METHOD 05/31/2025 3:53 PM EDT [facility] Bilirubin, Urine Small(A) Negative LAB URINALYSIS - AUTOMATED METHOD 05/31/2025 3:53 PM EDT [facility] Urobilinogen, Urine 1.0 0.2 to 1.0 mg/dL LAB URINALYSIS - AUTOMATED METHOD 05/31/2025 3:53 PM EDT [facility] Leukocytes, Urine Small(A) Negative LAB URINALYSIS - AUTOMATED METHOD 05/31/2025 3:53 PM EDT [facility] Nitrite, Urine Negative Negative LAB URINALYSIS - AUTOMATED METHOD 05/31/2025 3:53 PM EDT [facility] RBC, Urine 4 - 10(A) 0 to 3 /HPF LAB URINALYSIS - AUTOMATED METHOD 05/31/2025 3:53 PM EDT [facility] Comment:This result was prev iously suppressed from the chart. WBC, Urine 6 - 10(A) 0 to 5 /HPF LAB URINALYSIS - AUTOMATED METHOD 05/31/2025 3:53 PM EDT [facility] Comment:This result was prev iously suppressed from the chart. Squamous Epithelial Cells 11 - 20(A) 0 to 5 /HPF LAB URINALYSIS - AUTOMATED METHOD 05/31/2025 3:53 PM EDT [facility] Comment:This result was prev iously suppressed from the chart. Hyaline Casts 3 - 5 0 to 5 /LPF LAB URINALYSIS - AUTOMATED METHOD 05/31/2025 3:53 PM EDT [facility] Comment:This result was prev iously suppressed from the chart. Bacteria, Urine Negative Negative LAB URINALYSIS - AUTOMATED METHOD 05/31/2025 3:53 PM EDT [facility] Comment:This result was prev iously suppressed from the chart. Renal Tubular Cells Present Absent 05/31/2025 3:53 PM EDT [facility] Comment:This result was prev iously suppressed from the chart. Transitional Epithelial Cells Present Absent 05/31/2025 3:53 PM EDT [facility] Comment:This result was prev iously suppressed from the chart. Urine Urine specimen obtained by clean catch procedure / Unknown Non-blood Collection / Unknown 05/31/2025 3:06 PM EDT 05/31/2025 3:10 PM EDT Narrative [facility] - 05/31/2025 3:53 PM EDT Performed by manual method us Torrie Turner MD LAB URINE ORDERABLES Final Resu lt [facility] [address] [place] [address] documented in this encounter Visit Diagnoses Diagnosis Altered mental status, unspecified altered mental status type- Primary documented in this encounter Administered Medications Inactive Administered Medications - up to 3 most recent administrations Medication Order MAR Action Action Date Dose Rate Site lactulose (Chronulac) 10 GM/15ML solution 20 g 20 g, Oral, Once, 1 dose, On Tue05/31/25 at 1435, Routine Given 05/31/2025 3:59 PM EDT 20 g documented in this encounter Active and Recently Administered Medications Times are shown in EDT. Scheduled Medication Order 05/29/2025 05/30/2025 05/31/2025 lactulose (Chronulac) 10 GM/15ML solution 20 g (COMPLETED) 20 g, Oral, Once, 1 dose, On 05/31/25 at 1435, Routine 1559 (Given - Provid er: Deysi Blanca RN) documented in this encounter Additional Health Concerns Assessment Noted Time PHQ-9 Depression Total Score: 0 03/06/20 1:21 PM EDT A fall risk assessment has been complete d for the patient 05/29/2025 2:34 PM EDT A Body Mass Index follow-up plan has been documented for the patient 05/30/2025 11:28 AM EDT documented as of this encounter Care Teams Claims Manager Relationship Specialty Start Date End Date Alvarez Zimmer MD [address] [place] [id number] PCP - General Family Medicine 12/07/24 Lea Fernando [address] [place] [address] Checker Cashier Endocrinology 08/29/24 Rachel Ray, [facility] [address] [place] [address] Nurse Practitioner Gastroenterology 09/24/24 Tamera Isabel LPN VALUE-BASED TRANSFORMATION PROGRAM Licensed Practical Nurse 05/29/25 documented as of this encounter
--- OUTSIDE RECORDS SUMMARY | 2025-06-05 14:00 | XMS_ITS | Encounter Summary ---
Author Organization [facility] Address [address] [place] [address] Care Team Providers Care Engineering Faculty Member Name Role Phone Lea Fernando Unavailable [phone] Rachel Ray LEATHER PRODUCTION WORKER Unavailable [phone] Alvarez Zimmer MD Primary Care Provider [phone] Tamera Isabel SOCK BOARDER Unavailable Unavailabl e Reason for Visit * Reason Comments Medicare Annual Wellness Visit Initial A nnual; has been feeling out of sorts for a while but has been worse since Tuesday Care Gap Closure Postpone Covid vacci ne; last colonoscopy done 01/14/23 Denominational, record under media and printed out to put in scrubber box Med Refill Crestor Encounter Details Date Type Department Care Team (Latest Contact Info) Description 06/05/2025 2:00 PM EDT Office Visit [facility] [address] [place] [address] Alvarez Zimmer MD [address] [place] [address] Medicare annual wellness visit, initial (Primary Dx); Coronary artery disease of [place] artery of [place] heart with stable angina pectoris (CMS/HCC); Diabetic peripheral neuropathy (CMS/HCC); Type 2 diabetes mellitus with other diabetic neurological complication ([facility]/HCC); Chronic obstructive pulmonary disease, unspecified COPD type ([facility]/HCC); JONATHAN treated with BiPAP; Chronic kidney disease, stage 3b ([facility]/HCC); Hyperlipidemia, unspecified hyperlipidemia type; Type 2 diabetes mellitus with hyperglycemia, with long-term current use of insulin ([facility]/HCC); Anemia of chronic disease; Anxiety disorder, unspecified type; 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) ([facility]); Hypomagnesemia; Vitamin D deficiency; Hyperbilirubinemia; Protein malnutrition ([facility]/HCC) Social History Tobacco Use Types Packs/Day Years [...] How often do you attend [facility] or roman catholic services? Patient unable to [...] Answer Date Recorded Patient Health Questionnaire-2 Score 0 06/11/2025 PHQ-9 Answer Date Recorded Patient Health Questionnaire-9 Score 6 06/11/2025 Humiliation, Afraid, Rape, and Kick questionnair e [...] 05/29/2025 How often do you attend chur ch or roman catholic services? Never 05/29/2025 Do you belong to [...] you have a drink containing alcohol? Never 06/05/2025 Q2: How many drinks containi ng alcohol do you have on a typical day when you are drinking? Patient does not drink Q3: How often do you have si x or more drinks on one occasion? Never 06/05/2025 [facility] - Occupational [...] in a group home (including now)? No 05/29/2025 CAGE ASSESSMENT Answer [...] first t kennedy in the morning (EYE-CLINICAL OUTCOMES MANAGER) to steady your nerves or to get rid of a hangover? 0 10/22/2024 CAGE Questionnaire Score 0 024 Utilities Answer Date Recorded In the past 12 months has th e [employer], gas, oil, or water company threatened to [...] Sign Reading Time Taken Comments Blood Pressure 139/72 06/05/2025 2:55 PM EDT Pulse 90 06/05/2025 2:36 PM EDT Temperature 36.8 C (98.3 F) 06/05/2025 2:36 PM EDT Respiratory Rate 18 06/05/2025 2:36 PM EDT Oxygen Saturation 95% 06/05/2025 2:36 PM EDT Inhaled Oxygen Concentration - - Weight 80.6 kg (177 lb 11.1 oz) 06/05/2025 2:36 PM EDT Height 165.1 cm (5' 5 ) 06/05/2025 2:36 PM EDT Body Mass Index 29.57 06/05/2025 2:36 PM EDT documented in this encounter Functional Status * AUDIT-C Score Answer Date of Assessment Author 0 06/05/2025 2:44 PM EDT Gissel Iniguez * Question Answer Date of Assessment Author Q1: How often do you have a drink containing alcohol? Never 06/05/2025 2:44 PM EDT Anisha Marino Q2: How many drinks containing alcohol do you have on a typical day when you are drinking? Patient does not drink 06/05/2025 2:44 PM EDT Gissel Marino Q3: How often do you have six or more drinks on one occasion? Never 06/05/2025 2:44 PM EDT Anisha Marino * Calculated C-SSRS Risk Score (Lifetime/Recent) Answer Date of Assessment Author No Risk Indicated 06/05/2025 2:53 PM EDT Gissel Downey * Question Answer Date of Assessment Author 1. Wish to be (Past 1 Month) No 025 2:53 PM EDT Gissel Marino 2. Non-Specific Active Suici liz Thoughts (Past 1 Month) No 06/05/2025 2:53 PM EDT Gissel Marino 6. Suicidal Behavior (Lifetime) No 5 2:53 PM EDT Gissel Marino documented as of this encounter Miscellaneous Notes * Clinician Note - Gissel Marino - 06/05/2025 2:00 PM EDT Pt accompanied by son and sister. * Progress Notes - Alvarez Zimmer MD - 06/05/2025 2:00 PM EDT Images from the original note were not included. Initial Medicare Wellness Visit [facility] Wellness Visit Chief Complaint Patient presents with Medicare Annual Wellness Visit Initial Annual; has been feeling out of sorts for a while but has been worse since Tuesday Care Gap Closure Postpone Covid vaccine; last colonoscopy done 01/14/23 Denominational, record under media and printed out to put in scrubber box [facility] completed and reviewed with the patient. HPI: Gabi Zimmer is a 64 y.o. female who presents for an Initial Medicare Wellness Visit. [phone], phone number for Lea Reilly. She is struggling with intermittent AMS due to confusion leading to trouble taking her medication causing her to worsen. She will get confused on which medications she takes. Her family doesn't feel they can help her and care for her medical needs at home. When she has care givers there she does better but they cannot stay all day and night. She complains of memory concerns. Has been going on for the past few years. Has had hepatic encephalopathy. Has had dementia in the family in her grandmother. Has MASH cirrhosis of the liver with hx of hepatic encephalopathy. She has lactulose and Xifaxan. Has portal hypotension with use of midodrine to help raise her blood pressure. Gets serial paracentesis. Has type 2 diabetes on insulin managed by endocrinology. Has CAD in [place] artery on rosuvastatin. Has HLD on rosuvastatin and zetia. Has anxiety on sertraline. Has been having memory loss with missed medications. On Nemenda. Has chronic anemia related to chronic disease/liver disease. Hb is ranging in the 8 range. Has vitamin D deficiency on drisdol weekly. Has lumbar spinal stenosis with claudication and diabetic peripheral neuropathy on gabapentin for neuropathy. She has had an ablation in the past. Recent Hospitalizations: Hospitalization Have you been hospitalized since we last saw you?: No Current Medical Providers: Patient Care Team: Alvarez Zimmer MD as PCP - General (Family Medicine) Lea Fernando as Tugboat Captain (Endocrinology) Rachel Ray APRN as Nurse Practitioner (Gastroenterology) Tamera Isabel LPN as Licensed Practical Nurse Seen Outside Provider? Have you seen a health care provider outside our clinic since we last saw you?: (!) Yes Compared to one year ago, the patient feels her physical health is worse and her mental health is worse. Depression Screen: Health Habits and Functional and Cognitive Screening: Health Habits (AWV) In general, how would you say your health is?: (!) Poor In general, how satisfied are you with your life?: Satisfied In the past 7 days, how much pain have you felt?: (!) Some In the past 7 days have you had any problems staying or falling asleep?: (!) Yes In the past 7 days have you had problems with constipation?: No Do you usually exercise at least 30 minutes or more, 4 days a week?: (!) No Do you usually eat a diet that has at least 4 servings of fruit & vegetables, includes whole grain & fiber and avoids other than occasional servings of high fat foods?: (!) No How would you describe the condition of your mouth and teeth (including false teeth or dentures)?: Good Do you always fasten your seat belt when you are in the car?: Yes Memory Do you or any of your friends or family members have any concerns about your memory?: (!) Yes Does the patient have evidence of cognitive impairment? Yes Activities Daily Living: Activities of Daily Living Screening In the past 7 days, did you need help from others to perform everyday activities such as eating, getting dressed, grooming, bathing, walking, or using the toilet?: No In the past 7 days, did you need help from others to take care of things such as laundry and housekeeping, banking, shopping, using the telephone, food preparation, transportation, or taking your ownmedications?: (!) Yes Hearing and Visual Acuity: Hearing Do you have any problems with your hearing?: (!) Yes Hearing/Eye Exam No results found. Home Risk Assessment: Home Risk Assessment AWV Have you fallen in the last year?: No falls in the last year or 1 fall with no injury in the last year Does your home have rugs in the hallway?: No Does your home have grab bars in the bathroom?: Yes Does you home have handrails on the stairs?: Yes Does your home have good lighting?: Yes Do you know where to locate and how to properly use a first aid kit and fire extinguisher in case of an emergency?: Yes DME Use Current DME Use: BIPAP, [facility] Past Medical/Family/Social History: Allergies[1] Current Medications[2] Family History[3] Social History Socioeconomic History Marital status: Spouse name: Not on file Number of children: 2 Years of education: Not on file Highest education level: Associate degree: occupational, technical, or vocational program Occupational History Occupation: Disability Tobacco Use Smoking status: Never Passive exposure: Never Smokeless tobacco: Never Vaping Use Vaping status: Never Used Substance and Sexual Activity Alcohol use: Not Currently Drug use: Never Sexual activity: Not Currently Partners: Male control/protection: Abstinence, Condom Male Comment: Hysterectomy Other Topics Concern Not on file Social History Narrative Marital Status: Social Drivers of Health Financial Resource Strain: Low Risk (01/10/2025) Overall Financial Resource Strain (CARDIA) Difficulty of Paying Living Expenses: Not very hard Recent Concern: Financial Resource Strain - Medium Risk (10/16/2024) Overall Financial Resource Strain (CARDIA) Difficulty of Paying Living Expenses: Somewhat hard Food Insecurity: No Food Insecurity (05/29/2025) Hunger Vital Sign Worried About Running Out of Food in the Last Year: Never true Ran Out of Food in the Last Year: Never true Transportation Needs: No Transportation Needs (05/29/2025) PRAPARE - Transportation Lack of Transportation (Medical): No Lack of Transportation (Non-Medical): No Physical Activity: Inactive (05/29/2025) Exercise Vital Sign Days of Exercise per Week: 0 days Minutes of Exercise per Session: 0 min Stress: Stress Concern Present (05/29/2025) [employer] - Occupational Stress Questionnaire Feeling of Stress: Very much Social Connections: Socially Isolated (05/29/2025) Social Connection and Isolation Panel Frequency of Communication with Friends and Family: More than three times a week Frequency of Social Gatherings with Friends and Family: Once a week Attends Orthodox Services: Never Active Member of Clubs or Organizations: No Attends Club or Organization Meetings: Never Marital Status: Intimate Partner Violence: Not At Risk (05/29/2025) Humiliation, Afraid, Rape, and Kick questionnaire Fear of Current or Ex-Partner: No Emotionally Abused: No Physically Abused: No Sexually Abused: No Housing Stability: Low Risk (05/29/2025) Housing Stability Vital Sign Unable to Pay for Housing in the Last Year: No Number of Times Moved in the Last Year: 0 Homeless in the Last Year: No Surgical History[4] Problem List[5] Review of Systems Constitutional: Positive for fatigue. Negative for fever. Respiratory: Positive for shortness of breath. Negative for cough. Cardiovascular: Negative for chest pain. Gastrointestinal: Negative for abdominal pain. Neurological: Positive for dizziness. Negative for headaches. Psychiatric/Behavioral: Positive for confusion. Objective 05/31/2025 12:54 PM 05/31/2025 2:00 PM 05/31/2025 4:32 PM 05/31/2025 7:10 PM 05/31/2025 7:43 PM 06/05/2025 2:36 PM 06/05/2025 2:55 PM Vitals Systolic 109 104 109 145 139 Diastolic 69 60 57 69 72 Heart Rate 73 90 85 90 Temp 37.0 C 36.9 C 36.4 C 36.8 C Resp 18 18 18 18 18 18 Height (cm) 165.1 cm Weight (kg) 87.9 kg 80.6 kg BMI 32.25 kg/m2 29.57 kg/m2 BSA (m2) 2.01 m2 1.92 m2 Visit Report Report Report The patient's weight is above average. No BMI management plan is appropriate. Physical Exam Constitutional: Appearance: Normal appearance. She is not ill-appearing. HENT: Head: Normocephalic and atraumatic. Cardiovascular: Rate and Rhythm: Normal rate and regular rhythm. Heart sounds: Normal heart sounds. No murmur heard. Pulmonary: Effort: Pulmonary effort is normal. No respiratory distress. Breath sounds: Normal breath sounds. No wheezing or rhonchi. Neurological: General: No focal deficit present. Mental Status: She is alert. Mental status is at baseline. Psychiatric: Mood and Affect: Mood normal. Behavior: Behavior normal. Recent Lab Results: Glucose, Plasma (mg/dL) Date Value 05/31/2025 181 (H) 05/30/2025 199 (H) 05/23/2025 169 (H) POCT Hemoglobin A1C Date Value 01/11/2024 7.4 09/07/2023 10.2 05/11/2023 8.5 % 11/24/2021 10.8 % (A) 07/17/2021 9.8 % (A) 03/13/2021 9.5 Hemoglobin A1c (%) Date Value 05/23/2025 7.3 (H) 01/08/2025 6.2 (H) 10/22/2024 8.6 (H) BUN, Plasma (mg/dL) Date Value 05/31/2025 29 (H) 05/30/2025 29 (H) 05/23/2025 23 Creatinine, Plasma (mg/dL) Date Value 05/31/2025 1.34 (H) 05/30/2025 1.44 (H) 05/23/2025 1.30 (H) Cholesterol, Plasma (mg/dL) Date Value 10/22/2024 70 10/02/2024 130 01/04/2023 101 Triglycerides, Plasma (mg/dL) Date Value 10/22/2024 49 10/15/2024 67 10/02/2024 104 HDL (mg/dL) Date Value 10/22/2024 25 (L) 10/02/2024 42 (L) 01/04/2023 44 (L) Assessment/Plan Age-appropriate Screening Schedule: Refer to the list below for future screening recommendations based on patient's age, sex and/or medical conditions. Orders for these recommended tests are listed in the plan section. The patient has been provided with a written plan. Health Maintenance Topic Date Due Dental X-Ray: Bitewings Never done Dental X-Ray: Full Mouth Never done Dental Prophylaxis Never done Diabetes: Dental Exam Never done [facility]-Hepatitis A Vaccines (1 of 2 - Risk 2-dose series) Never done [facility]-Colorectal Cancer Screening Never done [facility]-Pneumococcal Vaccine: 50+ Years (2 of 2 - PCV) 08/23/2019 [facility]-RSV Vaccine: 60+ Years or (1 - Risk 60-74 years 1-dose series) Never done [id number] Vaccine (1 - 2023- season) Never done [facility]-Influenza Vaccine (1) 07/22/2025 Dental Oral Exam 06/17/2025 [facility]-Diabetes: Hemoglobin A1C 08/22/2025 [facility]-Bone Density Scan 11/07/2025 [facility]- SDOH Screenings 11/29/2025 [facility]-Breast Cancer Screening 01/25/2026 [facility]-Depression Screening 05/07/2026 [facility]-Medicare Annual Wellness (AWV) 06/05/2026 [facility]-DTaP,Tdap,and Td Vaccines (2 - Td or Tdap) 07/17/2029 [facility]-Zoster Vaccines Completed [facility]-HIV Screening Completed [facility]-Hepatitis C Screening Completed [facility]-Obesity Intervention Completed [facility]-HIB Vaccines Aged Out [facility]-IPV Vaccines Aged Out [facility]-Rotavirus Vaccines Aged Out HPV Vaccines Aged Out [facility]-Cervical Cancer Screening Discontinued The patient was counseled on the importance of the following screenings: Has been having worsening cognition due to being sick and delirious episodes. [facility] Preventative Services Quick Reference Medicare Risks and Personalized Health Plan co-morbidities, dementia, functional impairment, baseline cognitive impairment, and polypharmacy or use of specific, psychoactive medications at baseline The above risks/problems have been discussed with the patient. Pertinent information has been shared with the patient in the After Visit Summary. Follow up plans and orders are seen below in the Assessment/Plan Section. Advanced Care Planning: Full Code Problem List Items Addressed This Visit Chronic obstructive pulmonary disease (CMS/HCC) Chronic kidney disease, stage 3b (CMS/HCC) Relevant Orders CBC and Differential Iron, Plasma Ferritin, Serum Coronary artery disease of [place] artery of [place] heart with stable angina pectoris (CMS/HCC) Relevant Medications midodrine (Proamatine) 5 MG tablet Diabetic peripheral neuropathy (CMS/HCC) JONATHAN treated with BiPAP Hyperlipidemia Type 2 diabetes mellitus, with long-term current use of insulin (CMS/HCC) 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) 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) (CMS/HCC) (Chronic) Other Visit Diagnoses Medicare annual wellness visit, initial - Primary Anemia of chronic disease Relevant Orders CBC and Differential Iron, Plasma Ferritin, Serum Anxiety disorder, unspecified type Hypomagnesemia Vitamin D deficiency Hyperbilirubinemia Relevant Orders Conjugated Bilirubin, Plasma Protein malnutrition (CMS/HCC) Relevant Orders Prealbumin, Plasma An After Visit Summary and PPPS with all of these plans were given to the patient. Health Maintenance Due Topic Date Due Dental X-Ray: Bitewings Never done Dental X-Ray: Full Mouth Never done Dental Prophylaxis Never done Diabetes: Dental Exam Never done [facility]-Hepatitis A Vaccines (1 of 2 - Risk 2-dose series) Never done [facility]-Colorectal Cancer Screening Never done [facility]-Pneumococcal Vaccine: 50+ Years (2 of 2 - PCV) 08/23/2019 [facility]-RSV Vaccine: 60+ Years or (1 - Risk 60-74 years 1-dose series) Never done [id number] Vaccine ( - season) Never done [facility]-Influenza Vaccine (1) 07/22/2025 Follow Up: Follow up in about 4 weeks (around 07/03/2025) for confusion follow up. Will work with social work to coordinate care. Checking for prealbumin. Has lost 10% of her body weight over the past month. Bilirubin is going up. Note to patient: The Century Cures Act makes medical notes like these available to patients inthe interest of transparency. However, be advised this is a medical document. It is intended as peer to peer communication. It is written in medical language and may contain abbreviations or verbiagethat are unfamiliar. It may appear blunt or direct. Medical documents are intended to carry relevant information, facts as evident, and the clinical opinion of the practitioner. [1] No Known Allergies [2] Current Outpatient Medications: Abaloparatide (Tymlos) 3120 MCG/1.56ML solution pen-injector, Inject 80 mcg under the skin daily., Disp: 1.56 mL, Rfl: 2 azelastine (Astelin) 0.1 % nasal spray, Administer 1 spray into each nostril 2 times a day. Use in each nostril as directed, Disp: 30 mL, Rfl: 12 B-D UF III MINI PEN NEEDLES 31G X 5 MM [facility] [place], , Disp: , Rfl: Blood Glucose Monitoring [...] mouth daily., Disp: 90 tablet, Rfl: 1 diclofenac (Voltaren) 1 % topical gel, Place 1-2 g on the skin in the morning and 1-2 g before bedtime. Do all this for 14 days. Apply as directed to area in chest., Disp: 100 g, Rfl: 0 ergocalciferol (Vitamin D-2) 1.25 MG (74437 UT) capsule, Take 1 capsule by mouth 1 time per week., Disp: 8 capsule, Rfl: 3 fluticasone (Flonase) 50 MCG/ACT nasal spray, Administer 1 spray into each nostril daily. Shake gently. Before first use, prime pump. After use, clean tip and replace cap., Disp: 16 g, Rfl: 0 glucose blood test strip, Use to test [...] GM/15ML solution, Take 30 mL by mouth 3 times a day., Disp: 2700 mL, Rfl: 11 Lancets misc, Use to test blood sugars twice a day E11.65, Disp: 100 each, Rfl: 1 Lantus SoloStar 100 UNIT/ML injection pen, Inject 52 units every morning. Titrate as directed. MDD:60 units, Disp: , Rfl: Magnesium Oxide, Laxative, 500 MG tablet, Take 1 tablet by mouth daily., Disp: 90 tablet, Rfl: 3 midodrine (Proamatine) 10 MG tablet, Take 2 tablets by mouth 3 times a day., Disp: 180 tablet, Rfl:3 midodrine (Proamatine) 5 MG tablet, Take 3 tablets by mouth 3 times a day., Disp: 270 tablet, Rfl: 11 Multiple Vitamins-Minerals (COMPLETE WOMENS PO), Take 1 tablet by mouth in the morning., Disp: , Rfl: omeprazole (PriLOSEC) [address] capsule, Take [...] per day., Disp: 400 each, Rfl: 3 prochlorperazine (Compazine) 5 MG tablet, Take 1 tablet by mouth every 8 hours as needed for nauseaor vomiting., Disp: 60 tablet, Rfl: 2 rifAXIMin (Xifaxan) 550 MG tablet, Take 1 tablet by mouth 2 times a day., Disp: 60 tablet, Rfl: 11 rosuvastatin (Crestor) 20 MG tablet, Take 1 tablet by mouth nightly., Disp: , Rfl: [place] 0.6 MG/0.6ML solution auto-injector, Inject 0.6 mg under the skin 1 time as needed (for extreme hypoglycemia) for up to 1 dose., Disp: 0.6 mL, Rfl: 2 zinc sulfate (Zincate) 220 (50 Zn) MG capsule, Take 1 capsule by mouth in the morning and 1 capsulebefore bedtime., Disp: 60 capsule, Rfl: 2 B-D ULTRAFINE III SHORT PEN 31G X 8 MM misc, , Disp: , Rfl: [3] Family History Problem Relation Name Age [...] Sister Lj Bernal Rheumatologic disease Sister Lj Gabe Recurrent Infections Sister Lj Gabe Dementia Maternal Grandmother Christine Dick Alzheimer's disease Maternal Grandmother Christine Dick Emphysema Maternal Grandmother Christine Mayelin No Known Problems Maternal Grandfather Kidney disease Paternal Grandmother Anish Singlteary Stomach cancer Paternal Grandmother Anish Singletary Dementia Paternal Grandfather No Known Problems Son Diabetes Son Depression Son Anxiety disorder Son Obesity Son Depression Son Jpamrik Zimmer Asthma Son Jpamrik Zimmer Mental illness Son Jp Zimmer Depression Son Viral Zimmer Diabetes Son Viral Zimmer [4] Past Surgical History: Procedure Laterality Date APPENDECTOMY 1979 BLADDER SURGERY N/A Bladder surgery from [facility] BREAST BIOPSY 2011 BREAST SURGERY 2010 BUNIONECTOMY Right CATARACT EXTRACTION Bilateral 2016 CHOLECYSTECTOMY 1980 ESOPHAGOGASTRODUODENOSCOPY HYSTERECTOMY N/A Hysterectomy from [facility] KNEE SURGERY Bilateral ORAL SURGERY N/A Oral surgery from [facility] OTHER SURGICAL HISTORY 2015 ROOT CANAL WISDOM TOOTH EXTRACTION [5] Patient Active Problem List Diagnosis Alopecia Chronic obstructive pulmonary disease (CMS/HCC) Chronic kidney disease, stage 3b (CMS/HCC) Coronary artery disease of [place] artery of [place] heart with stable angina pectoris (CMS/HCC) Diabetic peripheral neuropathy (CMS/HCC) Dysphagia Epigastric pain ETD (eustachian tube dysfunction) Heartburn Obesity (BMI 30.0-34.9) JONATHAN treated with BiPAP Physical deconditioning Rheumatoid arthritis with positive rheumatoid factor (CMS/HCC) Spondylosis of lumbar region without myelopathy or radiculopathy Systemic lupus erythematosus (CMS/HCC) Hyperlipidemia Type 2 diabetes mellitus, with long-term current use of insulin (CMS/HCC) Hepatic encephalopathy (CMS/HCC) [place] (acute kidney injury) (CMS/HCC) 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) Secondary esophageal varices without bleeding (CMS/HCC) Portal hypertensive gastropathy (CMS/HCC) 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) (CMS/HCC) Irritable bowel syndrome with both constipation and diarrhea Carpal tunnel syndrome Hx of spontaneous bacterial peritonitis Other ascites Moderate protein-calorie malnutrition (CMS/HCC) documented in this encounter Plan of Treatment Upcoming Encounters Date Type Department Care Team (Late st Contact Info) Description 08/01/2025 10:00 AM EDT Appointment [facility] [address] [place] [address] 08/01/2025 11:00 AM EDT Appointment [facility] [address] [place] [address] 08/08/2025 11:15 AM EDT Appointment [facility] [address] [place] [address] 08/08/2025 12:15 PM EDT Appointment [facility] [address] [place] [address] 2025 10:00 AM EDT Appointment [facility] [address] [address] 2025 11:00 AM EDT Appointment [facility] [address] [place] [address] 08/20/2025 9:30 AM EDT Clinical Support [facility] [place] [address] [place] [address] 08/20/2025 10:30 AM EDT Social Work [facility] [place] [address] [place] [place] [address] [place] [address] 08/20/2025 11:00 AM EDT Office Visit [facility] [place] [address] [place] [address] Jude Duque MD [address] [place] [address] documented as of this encounter Procedures Procedure Name Priority Date/Time Associated Diagnosis Comments CBC WITH AUTO DIFFERENTIAL Routine 06/05/2025 3:52 PM EDT Chronic kidney disease, stage 3b (CMS/HCC) Anemia of chronic disease PREALBUMIN, PLASMA Routine 06/05/2025 3: 52 PM EDT Protein malnutrition (CMS/HCC) IRON, PLASMA Routine 06/05/2025 3:52 PM EDT Chronic kidney disease, stage 3b (CMS/HCC) Anemia of chronic disease FERRITIN, SERUM Routine 06/05/2025 3:52 PM EDT Chronic kidney disease, stage 3b (CMS/HCC) Anemia of chronic disease CONJUGATED BILIRUBIN, PLASMA Routine 06/05/2025 3:52 PM EDT Hyperbilirubinemia documented in this encounter Results * (ABNORMAL) Ferritin, Serum (06/05/2025 3:52 PM EDT) Pathologist [facility] Ferritin, Serum 280(H) 13 - 150 ng/mL 06/05/2025 6:53 PM EDT [facility] Blood Venous blood specimen / Unknown Venipuncture / Unknown 06/05/2025 3:52 PM EDT 06/05/2025 3:52 PM EDT Alvarez Zimmer MD LAB BLOOD ORDERABLES Final Res ult Performing Organization Address [facility]/ZIP Co de Phone Number [facility] [address] [place] [address] * (ABNORMAL) Iron, Plasma (06/05/2025 3:52 PM EDT) Pathologist [facility] Iron, Plasma 165(H) 30 - 160 ug/dL 06/05/2025 6:41 PM EDT [facility] Blood Venous blood specimen / Unknown Venipuncture / Unknown 06/05/2025 3:52 PM EDT 06/05/2025 3:52 PM EDT Alvarez Zimmer MD LAB BLOOD ORDERABLES Final Res ult Performing Organization Address City/[facility]/ZIP Co de Phone Number [facility] [address] [place] [address] * (ABNORMAL) CBC and Differential (06/05/2025 3:52 PM EDT) [facility] WBC Count 4.22 3.70 - 10.30 10*3/uL LAB HEMATOLOGY METHOD 06/05/2025 6:35 PM EDT [facility] RBC Count 3.21(L) 3.90 - 5.20 10*6/uL LAB HEMATOLOGY METHOD 06/05/2025 6:35 PM EDT [facility] HGB 10.0(L) 11.2 - 15.7 g/dL LAB HEMATOLOGY METHOD 06/05/2025 6:35 PM EDT [facility] HCT 31.4(L) 34.0 - 45.0 % LAB HEMATOLOGY METHOD 06/05/2025 6:35 PM EDT [facility] Platelet Count 57(L) 155 - 369 10*3/uL LAB HEMATOLOGY METHOD 06/05/2025 6:35 PM EDT [facility] MCV 98 79 - 98 fL LAB HEMATOLOGY METHOD 06/05/2025 6:35 PM EDT [facility] MCH 31.2 26.0 - 32.0 pg LAB HEMATOLOGY METHOD 06/05/2025 6:35 PM EDT [facility] MCHC 31.8 30.7 - 35.5 g/dL LAB HEMATOLOGY METHOD 06/05/2025 6:35 PM EDT [facility] RDW 17.9(H) 11.5 - 14.5 % LAB HEMATOLOGY METHOD 06/05/2025 6:35 PM EDT [facility] MPV 11.2 8.8 - 12.5 fL LAB HEMATOLOGY METHOD 06/05/2025 6:35 PM EDT [facility] nRBC 0.0 <=0.0 per 100 WBCs LAB HEMATOLOGY METHOD 06/05/2025 6:35 PM EDT [facility] Differential Type Automated LAB HEMATOLOGY METHOD 06/05/2025 6:35 PM EDT [facility] Neutrophils % 64 % LAB HEMATOLOGY METHOD 06/05/2025 6:35 PM EDT [facility] Lymphocytes % 17 % LAB HEMATOLOGY METHOD 06/05/2025 6:35 PM EDT [facility] Monocytes % 15 % LAB HEMATOLOGY METHOD 06/05/2025 6:35 PM EDT [facility] Eosinophils % 3 % LAB HEMATOLOGY METHOD 06/05/2025 6:35 PM EDT [facility] Basophils % 1 % LAB HEMATOLOGY METHOD 06/05/2025 6:35 PM EDT [facility] Immature Granulocytes % 0 % LAB HEMATOLOGY METHOD 06/05/2025 6:35 PM EDT [facility] Neutrophils Absolute 2.71 1.60 - 6.10 10*3/uL LAB HEMATOLOGY METHOD 06/05/2025 6:35 PM EDT [facility] Lymphocytes Absolute 0.71(L) 1.20 - 3.90 10*3/uL LAB HEMATOLOGY METHOD 06/05/2025 6:35 PM EDT [facility] Monocytes Absolute 0.65 0.30 - 0.90 10*3/uL LAB HEMATOLOGY METHOD 06/05/2025 6:35 PM EDT [facility] Eosinophils Absolute 0.11 0.00 - 0.50 10*3/uL LAB HEMATOLOGY METHOD 06/05/2025 6:35 PM EDT [facility] Basophils Absolute 0.03 0.00 - 0.10 10*3/uL LAB HEMATOLOGY METHOD 06/05/2025 6:35 PM EDT [facility] Immature Granulocytes Absolute 0.01 0.00 - 0.06 10*3/uL LAB HEMATOLOGY METHOD 06/05/2025 6:35 PM EDT [facility] Blood Venous blood specimen / Unknown Venipuncture / Unknown 06/05/2025 3:52 PM EDT 06/05/2025 3:52 PM EDT Narrative [facility] - 06/05/2025 6:35 PM EDT Therapeutic decision making should be based on absolute values, rather than percentages. Alvarez Zimmer MD LAB BLOOD ORDERABLES Final Res ult Performing Organization Address City/[facility]/ZIP Co de Phone Number [facility] [address] [place] [address] * (ABNORMAL) Prealbumin, Plasma (06/05/2025 3:52 PM EDT) Prealbumin, Plasma 6.6(L) 20.0 - 41.0 mg/dL 06/05/2025 6:41 PM EDT [facility] Blood Venous blood specimen / Unknown Venipuncture / Unknown 06/05/2025 3:52 PM EDT 06/05/2025 3:52 PM EDT Alvarez Zimmer MD LAB BLOOD ORDERABLES Final Res ult [facility] [address] [place] [address] * (ABNORMAL) Conjugated Bilirubin, Plasma (06/05/2025 3:52 PM EDT) Conjugated Bilirubin, Plasma 1.5(H) <=0.3 mg/dL 06/05/2025 6:41 PM EDT [facility] Blood Venous blood specimen / Unknown Venipuncture / Unknown 06/05/2025 3:52 PM EDT 06/05/2025 3:52 PM EDT us Alvarez Zimmer MD LAB BLOOD ORDERABLES Final Res ult [facility] [address] [place] [address] documented in this encounter Visit Diagnoses Diagnosis Medicare annual wellness visit, initial- Primary Coronary artery disease of [place] artery of [place] heart with stable angina pectoris (CMS/HCC) Diabetic peripheral neuropathy (CMS/HCC) Type II or unspecified type diabetes mellitus with neurological manifestations, not stated as uncontrolled 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) Chronic obstructive pulmonary disease, unspecified COPD type (CMS/HCC) JONATHAN treated with BiPAP Chronic kidney disease, stage 3b (CMS/HCC) Hyperlipidemia, unspecified hyperlipidemia type Type 2 diabetes mellitus with hyperglycemia, with long-term current use of insulin (CMS/HCC) Anemia of chronic disease Anemia of other chronic disease Anxiety disorder, unspecified type 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) (CMS/HCC) Hypomagnesemia Disorders of magnesium metabolism Vitamin D deficiency Hyperbilirubinemia Disorders of bilirubin excretion Protein malnutrition (CMS/HCC) Kwashiorkor documented in this encounter Additional Health Concerns Assessment Noted Time PHQ-9 Depression Total Score: 0 03/06/20 25 1:21 PM EDT A fall risk assessment has been complete d for the patient 05/29/2025 2:34 PM EDT A Body Mass Index follow-up plan has been documented for the patient 06/05/2025 3:45 PM EDT documented as of this encounter Care Teams Engineering Faculty Member Relationship Specialty Start Date End Date Alvarez Zimmer MD [address] [place] [phone] PCP - General Family Medicine 12/07/24 Lea Fernando [address] [place] [address] Tugboat Captain Endocrinology 08/29/24 Rachel Ray, ADRI [address] [address] Nurse Practitioner Gastroenterology 09/24/24 Tamera Isabel LPN VALUE-BASED TRANSFORMATION PROGRAM Licensed Practical Nurse 05/29/25 documented as of this encounter
--- OUTSIDE RECORDS SUMMARY | 2025-06-06 07:58 | XMS_ITS | Encounter Summary ---
Author Organization Healthcare Address [address] [place] [address] Care Team Providers Care Chief Technician Name Role Phone Lea Fernando Unavailable [phone] Rachel Ray SECURITY SOLUTIONS ARCHITECT Unavailable [phone] Alvarez Zimmer MD Primary Care Provider [phone] Tamera Isabel SEARCH ENGINE OPTIMIZATION CONSULTANT Unavailable Unavailabl e Reason for Referral * Clinic-Administered Medication (Routine) - Closed Specialty Diagnoses / Procedures Referred By Eder zhu Referred To Contact Diagnoses Other ascites Procedures PA ABDOM PARACENTESIS DX/THER W IMAGING GUIDANCE Marianna Gordon APRN [address] [place] [address] Phone: tel: fax: [facility] [address] [place] [address] Phone: tel: fax: Referral ID Status Reason Start Date Expiration Date Visits Re quested Visits Authorized [id number] Closed 06/06/2025 12/06/2026 1 1 * Imaging (Routine) - Closed Specialty Diagnoses / Procedures Referred By Eder zhu Referred To Contact Radiology Diagnoses Other ascites Procedures US Guided Abdominal Paracentesis Marianna Gordon APRN [address] [place] [address] Phone: tel: fax: Referral ID Status Reason Start Date Expiration Date Visits Re quested Visits Authorized [id number] Closed 04/26/2025 10/26/2026 1 1 * Imaging (Routine) - Closed Specialty Diagnoses / Procedures Referred By Eder zhu Referred To Contact Radiology Diagnoses Other ascites Procedures US Guided Thoracentesis Marianna Gordon APRN [address] [place] [address] Phone: tel: fax: Referral ID Status Reason Start Date Expiration Date Visits Re quested Visits Authorized [id number] Closed 04/26/2025 10/26/2026 1 1 Reason for Visit * Imaging (Routine) - Closed Specialty Diagnoses / Procedures Referred By Eder zhu Referred To Contact Radiology Diagnoses Other ascites Procedures US Guided Abdominal Paracentesis Marianna Gordon APRN [address] [place] [address] Phone: tel: fax: Referral ID Status Reason Start Date Expiration Date Visits Re quested Visits Authorized [id number] Closed 04/26/2025 10/26/2026 1 1 Encounter Details Date Type Department Care Team (Latest Contact Info) Description 06/06/2025 7:58 AM EDT - 06/06/2025 11:19 AM EDT Hospital Encounter [facility] Interventional Radiology [address] [place] [address] Golden Wilhelm, PARK MICU 9-T1 AND T2 Other ascites Discharge [...] How often do you attend chur or church services? Patient unable to answer 01/10/2025 Do [...] How often do you attend chur or church services? Never 05/29/2025 Do you belong to [...] more drinks on one occasion? Never 06/05/2025 [facility] - Occupational [...] any time in the past 12 m [facility], were you homeless or living [...] first t kennedy in the morning (EYE-DIRECTOR OF ACQUISITIONS) to steady your nerves or to get [...] Sign Reading Time Taken Comments Blood Pressure 121/62 06/06/2025 11:15 AM EDT Pulse 78 06/06/2025 11:15 AM EDT Temperature 36.7 C (98.1 F) 06/06/2025 8:39 AM EDT Respiratory Rate 15 06/06/2025 11:15 AM EDT Oxygen Saturation 98% 06/06/2025 11:15 AM EDT Inhaled Oxygen Concentration - - Weight 82.7 kg (182 lb 5.1 oz) 06/06/2025 8:39 A M EDT Height 165.1 cm (5' 5 ) 06/06/2025 8:39 AM EDT Body Mass Index 30.34 06/06/2025 8:39 AM EDT documented in this encounter Discharge Instructions * Discharge Instructions* Golden Wilhelm RN - 06/06/2025 11:51 AM EDT *Interventional Radiology* (IR) Questions/Concerns & Appointments: If there are questions or concerns after discharge please call: [facility] Inter[facility]iology Clinic at [phone] Tuesday - Tuesday 8:00 AM to 4:30 PM After hours, weekends, and holidays please call [phone] and ask for the Interventional Radiology provider/Resident on-call Intervention Radiology Appointments: If you need to reschedule a procedure, please call our Schedulers at [phone], option 4. If you need to schedule or reschedule a clinic appointment, please call [phone]. [facility] Vascular and Interventional Radiology Clinic [address] [place] [id number] documented in this encounter Medications at Time [...] 1 tablet by mouth in the morning. rifAXIMin (Xifaxan) 550 MG tabletIndications:L iver cirrhosis secondary to NAIDU (nonalcoholic steatohepatitis) (CMS/HCC) Take 1 tablet by mouth 2 times a day. 60 tablet 11 06/03/2025 6 [place] 0.6 MG/0.6ML solution auto-injectorIndica tions:Type 2 [...] capsule before bedtime. 60 capsule 2 03/01/2025 azelastine (Astelin) 0.1 % nasal sprayIndications:ET D (Eustachian tube dysfunction), bilateral Administer 1 spray into each nostril 2 times a day. Use in each nostril as directed 30 mL 12 04/17/2025 5 B-D UF III MINI PEN NEEDLES 31G X 5 MM [facility] 04/22/2025 5 B-D ULTRAFINE III SHORT PEN 31G X 8 MM [facility] 01/14/2025 5 Blood Glucose Monitoring Suppl (Blood [...] 04/17/2025 5 ergocalciferol (Vitamin D-2) 1.25 MG (08356 UT) capsuleIndications: Vitamin D deficiency Take 1 [...] a day. 180 tablet 3 05/07/2025 5 midodrine (Proamatine) 5 MG tablet Take 3 tablets by mouth 3 times a day. 270 tablet 11 06/05/2025 5 omeprazole (PriLOSEC) [address] capsule Take 1 capsule by mouth 2 times a day. Do not crush or chew. 60 capsule 1 06/03/2025 5 ondansetron ODT (Zofran-ODT) 8 MG disintegrating [...] or vomiting. 60 tablet 2 05/07/2025 5 rosuvastatin (Crestor) 20 MG tablet Take 1 tablet by mouth nightly. 08/29/2020 5 rosuvastatin (Crestor) 20 MG tablet Take 1 tablet by mouth nightly. 90 tablet 2 06/11/2025 5 documented as of this encounter Miscellaneous Notes * Golden Hurst RN - 06/06/2025 11:50 AM EDT Images from the original note were not included. [id number] Discharge Instructions for Thoracentesis Thoracentesis is a [...] blood. Last Reviewed Date: 2025 00:00:00 ?? [id number] [employer] All rights reserved. This information is not intended as a substitute for professional medical care. Always follow your healthcare professional's instructions. * [facility] - Golden Wilhelm RN - 06/06/2025 11:50 AM EDT Images from the original note were not included. [id number] Discharge Instructions for Paracentesis Paracentesis is a [...] fainting. Last Reviewed Date: 2025 00:00:00 ?? [id number] [employer] All rights reserved. This information is not intended as a substitute for professional medical care. Always follow your healthcare professional's instructions. * Post-Procedure Note - Marianna Gordon APRN - 06/06/2025 9:30 AM EDT Vascular and Interventional Radiology Brief Postprocedure Note Performed by: Marianna Gordon APRN Renewals Specialist: LOUISE Pre-operative Diagnosis: right pleural effusion and ascites [...] complication and is in stable condition. * H&P - Marianna Gordon APRN - 06/06/2025 9:30 AM EDT 06/06/25 Patient: Gabi Zimmer Date of : 1960/64 y.o. Chief Complaint: Here for paracentesis and thoracentesis. History of Present Illness: Gabi Zimmer is a 64 y.o. 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 Review of Systems: 14 point ROS negative except as noted in HPI The following portions of the chart were reviewed this encounter and updated as appropriate: Past Medical History Pertinent Negatives[1] Surgical History[2] Social History[3] Family History: Personally reviewed and noncontributory. Allergies[4] Current Medications[5] Objective: All laboratory, images, tracings, and vital sign data are personally reviewed unless otherwise noted. Vital Signs: Temp: [36.8 ??C (98.3 ??F)] 36.8 ??C (98.3 ??F) Heart Rate: [90] 90 Resp: [18] 18 BP: (139-145)/(69-72) 139/72 There is no height or weight on file to calculate BMI. LABS (PAST 18Labs in last 18 hours) CBC WBC 4.22 Hb 10.0 (L) Plt 57 (L) Hct 31.4 (L) INR ?? PTT ?? Anti-Xa ?? BMP Na ?? Cl ?? BUN ?? Glu ?? K ?? Co2 ?? Cr ?? Ca ?? Mg ?? Phos ?? LFT AST ?? AlkPhos ?? T Prot ?? ALK ?? Bili ?? Alb ?? D.Bili ?? HOURS) Physical Exam: GENERAL: No acute distress EYES: PERRL; anicteric sclerae HENT: Atraumatic, moist mucous membranes RESP: Airway patent, Symmetric expansion; non labored. CARD: RRR Extremities: No edema, no cyanosis or clubbing; pulses palpable +2 GI: No organomegaly or masses; abdomen is soft, nontender and nondistended SKIN: Normal temperature, turgor and texture NEURO: Awake and following commands, moves all extremities, no focal deficits Radiographics/Diagnostics: Imaging personally reviewed and reviewed with attending. === 05/07/25 === CT ABDOMEN PELVIS W IV CONTRAST - Narrative - CLINICAL INDICATION: Risk for hepatocellular carcinoma Liver [...] on this date and at this time, andas such, the same value may appear in more than one CT report depending on the interpreting/reporting physicians. Examination meets LI-RADS technical recommendations. COMPARISON: October 22, 2024 CT abdomen pelvis FINDINGS: Liver, Gallbladder, Biliary Tract: Heterogeneous enhancement of the liver with volume redistribution and nodular contour consistent with cirrhosis. No intra or extrahepatic biliary ductal dilatation.Gallbladder is absent. Hepatic Vasculature: Hepatic arterial anatomy is standard. The portal veins are patent. The hepaticveins are patent. Recanalized umbilical vein. Significant gastrosplenic [...] vasculature is normal in caliber and patent. - Impression - Focal Hepatic Observations: LI-RADS Negative Portal hypertension [...] risk for hepatocellular carcinoma. CT/MRI LI-RADS and US LI-RADS are consistent with and integrated into the [place] [employer] Liver Diseases (AASLD) 2018 hepatocellular carcinoma (HCC) clinical practice guidance. LI-RADS criteria and documentation are available online at www.acr.org/Quality- Safety/Resources/LIRADS. This report utilizes LI-RADS version 2018 with [...] Salina Carpenter MD on 05/07/2025 8:14 PM === 05/23/25 === XR CHEST 1 VIEW - Narrative - CLINICAL INDICATION: s/p thora TECHNIQUE: XR CHEST 1 VIEW COMPARISON: May 16, 2025 FINDINGS: Small right effusion. No pneumothorax is identified. No edema or airspace disease. - Impression - No pneumothorax. CRITICAL RESULT: No. COMMUNICATION: Per this written report. Drafted by Alvarez Brenner MD on 05/23/2025 12:43 PM Final report signed by Alvarez Brenner MD on 05/23/2025 12:44 PM Echo, Adult Transthoracic Complete Result Date: [...] is no recent study available for direct exlc-tf-iaap comparison. Assessment & Plan: Decompensated MASH cirrhosis Ascites Hepatic hydrothorax - MELD 3.0: 23 at 05/31/2025 4:01 PM MELD-Na: 22 at 05/31/2025 4:01 PM Calculated from: Serum Creatinine: 1.34 mg/dL at 05/31/2025 4:01 PM Serum Sodium: 140 mmol/L (Using max of 137 mmol/L) at 05/31/2025 4:01 PM Total Bilirubin: 4.1 mg/dL at 05/31/2025 4:01 PM Serum Albumin: 3.5 g/dL at 05/31/2025 4:01 PM INR(ratio): 2 at 05/31/2025 4:01 PM Age at listin years Sex: Female at 05/31/2025 4:01 PM - INR ??, Plt 57 (L) - Personally reviewed U/S with ascites - VSS, Afebrile PLAN: - Will perform paracentesis and right thoracentesis Thank you for allowing us to participate in the care of this patient. Marianna Gordon, SECURITY SOLUTIONS ARCHITECT Interventional Radiology [phone] [1] Past Medical History: Diagnosis Date ADHD (attention deficit hyperactivity disorder) Allergic Anxiety disorder, unspecified Anxiety Bleeding gums Blood in urine Cataract Chronic kidney disease Cirrhosis (CMS/HCC) Colon cancer screening 09/20/2019 Added automatically from request for surgery [id number] Coronary artery disease Depression 1995 Diabetes mellitus [...] 1979 BLADDER SURGERY N/A Bladder surgery from [facility] BREAST BIOPSY 2011 BREAST SURGERY 2010 BUNIONECTOMY Right CATARACT EXTRACTION Bilateral 2016 CHOLECYSTECTOMY 1979 ESOPHAGOGASTRODUODENOSCOPY HYSTERECTOMY N/A Hysterectomy from [facility] KNEE SURGERY Bilateral ORAL SURGERY N/A Oral surgery from [facility] OTHER SURGICAL HISTORY 2015 ROOT CANAL WISDOM [...] MINI PEN NEEDLES 31G X 5 MM misc, , Disp: , Rfl: B-D ULTRAFINE III SHORT PEN 31G X [...] Rfl: 1 ergocalciferol (Vitamin D-2) 1.25 MG (95843 UT) capsule, Take 1 capsule by mouth [...] (buffered lidocaine)10 mL, 10 mL, Infiltration, Once, Micheal Glasgow APRN, ANGELLA Insert peripheral IV, , , Once AND Saline lock IV, , , Once AND sodium chloride 0.9 % flush10 mL, 10 mL, Intravenous, q12h AND sodium chloride 0.9 % flush 10 mL, 10 mL, Intravenous, PRN,Micheal Glasgow APRN, ANGELLA documented in this encounter Plan of Treatment Upcoming Encounters Date Type Department Care Team (Late st Contact Info) Description 08/01/2025 10:00 AM EDT Appointment [facility] Interventional Radiology [address] [place] [address] 08/01/2025 11:00 AM EDT Appointment [facility] Interventional Radiology [address] [place] [address] 08/08/2025 11:15 AM EDT Appointment [facility] Interventional Radiology [address] [place] [place] [address] 08/08/2025 12:15 PM EDT Appointment [facility] Interventional Radiology [address] [place] [address] 2025 10:00 AM EDT Appointment [facility] Interventional Radiology [address] [place] [address] 2025 11:00 AM EDT Appointment [facility] Interventional Radiology [address] [place] [address] 08/20/2025 9:30 AM EDT Clinical Support [facility] [place] [facility] [address] [place] [address] 08/20/2025 10:30 AM EDT Social Work [facility] [place] [facility] [address] [place] [address] [place] [address] 08/20/2025 11:00 AM EDT Office Visit [facility] [place] [facility] [address] [place] [address] Jude Duque MD [address] [place] [address] documented as of this encounter Procedures Procedure Name Priority Date/Time Associated Diagnosis Comments XR CHEST 1 VIEW Routine 06/06/2025 11:49 AM EDT US GUIDED ABDOMINAL PARACENTESIS Routine 06/06/2025 10:39 AM EDT Other ascites US GUIDED THORACENTESIS Routine 06/06/20 10:39 AM EDT Other ascites TOTAL PROTEIN, PERITONEAL FLUID Routine 06/06/2025 9:36 AM EDT BODY FLUID CELL COUNT W/ MANUAL DIFFERENTIAL Routine 06/06/2025 9:35 AM EDT BODY FLUID, CYTOSPIN, PATHOLOGIST INTERPRETATION Routine 06/06/2025 9:35 AM EDT documented in this encounter Results * XR Chest 1 View (06/06/2025 11:49 AM EDT) Anatomical Region Laterality Modality Chest Digital Radiogra phy Impressions 06/06/2025 12:18 PM EDT FINDINGS and IMPRESSION: No significant pleural effusion. No pneumothorax. Bibasilar atelectasis, slightly increased in the medial right lung base. Cardiac silhouette and mediastinal contours are stable. CRITICAL RESULT: No. COMMUNICATION: Per this written report. Drafted by Nory Singh MD on 06/06/2025 12:17 PM Final report signed by Nory Singh MD on 06/06/2025 12:18 PM Narrative 06/06/2025 12:18 PM EDT CLINICAL INDICATION: s/p right thoracentesis TECHNIQUE: XR CHEST 1 VIEW COMPARISON: 05/23/2025 Procedure Note Nory Singh MD - 06/06/2025 CLINICAL INDICATION: s/p right thoracentesis TECHNIQUE: XR CHEST 1 VIEW COMPARISON: 05/23/2025 IMPRESSION: FINDINGS and IMPRESSION: No significant pleural effusion. No pneumothorax. Bibasilar atelectasis,slightly increased in the medial right lung base. Cardiac silhouette andmediastinal contours are stable. CRITICAL RESULT: No. COMMUNICATION: Per this written report. Drafted by Nory Singh MD on 06/06/2025 12:17 PM Final report signed by Nory Singh MD on 06/06/2025 12:18 PM us Marianna N Cheeks SECURITY SOLUTIONS ARCHITECT IMG XR PROCEDURES Final Resu lt * US Guided Abdominal Paracentesis (06/06/2025 10:39 AM EDT) Anatomical Region Laterality Modality Abdomen Ultrasound Impressions 06/06/2025 4:13 PM EDT Technically successful US-guided paracentesis. . A total of 3.7 liters of cloudy, dark anthony, red tinged fluid was removed. A sample of the fluid was sent for laboratory analysis. Administered Albumin 37.5 g IV once post procedure CRITICAL RESULT: No. COMMUNICATION: Per this written report. Preliminary report signed by SOLANGE Omalley on 06/06/2025 11:50 AM By electronically signing this report, I, the attending physician, attest that I was not present for the procedure(s) but agree with the final edited report. Drafted by SOLANGE Omalley on 06/06/2025 11:48 AM Final report signed by Mike Orr MD on 06/06/2025 4:13 PM Narrative 06/06/2025 4:13 PM EDT CLINICAL INDICATION: Gabi Zimmer is a 64 y.o. 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 TECHNIQUE: [employer] Van Truck Driver: Marianna Gordon APRN Secondary Slurry Tank Operator: None. Nurse: Aleksandr Technologist: Lilliana Phillips Dose: NA Medications: Continuous physiologic monitoring provided by a qualified healthcare professional. Administered: 1% Lidocaine SQ. Antibiotics: NA Time out: 932 Procedure: After discussion of risks and benefits, [...] permanent storage in PACS. A total of 3.7 liters of cloudy, dark anthony, red tinged fluid was removed. The centesis catheter was removed and occlusive dressing applied. The patient tolerated the procedure well. The patient left the IR suite in stable condition. COMPARISON: None. FINDINGS: Moderate volume ascites. COMPLICATION: No. Procedure Note Mike Orr MD - 06/06/2025 CLINICAL INDICATION: Gabi Zimmer is a 64 y.o. 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 TECHNIQUE: [employer] Van Truck Driver: Marianna Gordon APRN Secondary Slurry Tank Operator: None. Nurse: Aleksandr Technologist: Lilliana Phillips Dose: NA Medications: Continuous physiologic monitoring provided by a qualifiedhealthcare professional. Administered: 1% Lidocaine SQ. Antibiotics: NA Time out: 932 Procedure: After discussion of risks and benefits, [...] to permanentstorage in PACS. A total of 3.7 liters of cloudy, dark anthony, red tingedfluid was removed. The centesis catheter was removed and occlusivedressing applied. The patient tolerated the procedure well. The patient left the IR suitein stable condition. COMPARISON: None. FINDINGS: Moderate volume ascites. COMPLICATION: No. IMPRESSION: Technically successful US-guided paracentesis. . A total of 3.7 liters of cloudy, dark anthony, red tinged fluid wasremoved. A sample of the fluid was sent for laboratory analysis. Administered Albumin 37.5 g IV once post procedure CRITICAL RESULT: No. COMMUNICATION: Per this written report. Preliminary report signed by SOLANGE Omalley on 06/06/2025 11:50 AM By electronically signing this report, I, the attending physician, attestthat I was not present for the procedure(s) but agree with the finaledited report. Drafted by SOLANGE Omalley on 06/06/2025 11:48 AM Final report signed by Mike Orr MD on 06/06/2025 4:13 PM us Marianna Gordon APRN IMG US PROCEDURES Final Resu lt * US Guided Thoracentesis (06/06/2025 10:39 AM EDT) Anatomical Region Laterality Modality Chest Ultrasound Impressions 06/06/2025 4:13 PM EDT Technically successful ultrasound guided thoracentesis. A total of 2 liters of cloudy, dark anthony, red tinged fluid was removed. Stopped fluid removal at 2 liters, small amount right pleural effusion remaining. A sample of the fluid was sent for laboratory analysis. CRITICAL RESULT: No. COMMUNICATION: Per this written report. Preliminary report signed by SOLANGE Omalley on 06/06/2025 11:52 AM By electronically signing this report, I, the attending physician, attest that I was not present for the procedure(s) but agree with the final edited report. Drafted by SOLANGE Omalley on 06/06/2025 11:50 AM Final report signed by Mike Orr MD on 06/06/2025 4:13 PM Narrative 06/06/2025 4:13 PM EDT CLINICAL INDICATION: Gabi Zimmer is a 64 y.o. 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 TECHNIQUE: National Van Truck Driver: Marianna Gordon APRN Secondary Slurry Tank Operator: None. Nurse: Aleksandr Technologist: Lilliana Phillips Dose: NA Medications: Continuous physiologic monitoring provided by a qualified healthcare professional. Administered: 1% Lidocaine SQ. Antibiotics: NA Time out: 932 Procedure: After discussion of risks and benefits, [...] an anechoic fluid collection in the right lateral pleural space. 1% lidocaine used for local analgesia. Under ultrasound guidance, a 6 Fr safety-centesis catheter was advanced into the pleural fluid. Ultrasound images were sent to permanent storage in PACS. A total of 2 liters of cloudy, dark anthony, red tinged fluid was removed. The needle was removed and occlusive dressing applied. The patient tolerated the procedure well. The patient left the IR suite in stable condition. COMPARISON: None. FINDINGS: Large right pleural effusion COMPLICATION: No. Procedure Note Mike Orr MD - 06/06/2025 CLINICAL INDICATION: Gabi Zimmer is a 64 y.o. 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 TECHNIQUE: [employer] Van Truck Driver: Marianna Gordon APRN Secondary Slurry Tank Operator: None. Nurse: Aleksandr Technologist: Lilliana Phillips Dose: NA Medications: Continuous physiologic monitoring provided by a qualifiedhealthcare professional. Administered: 1% Lidocaine SQ. Antibiotics: NA Time out: 932 Procedure: After discussion of risks and benefits, [...] showed an anechoic fluidcollection in the right lateral pleural space. 1% lidocaine used for localanalgesia. Under ultrasound guidance, a 6 Fr safety-centesis catheter wasadvanced into the pleural fluid. Ultrasound images were sent to permanentstorage in PACS. A total of 2 liters of cloudy, dark anthony, red tingedfluid was removed. The needle was removed and occlusive dressingapplied. The patient tolerated the procedure well. The patient left the IR suitein stable condition. COMPARISON: None. FINDINGS: Large right pleural effusion COMPLICATION: No. IMPRESSION: Technically successful ultrasound guided thoracentesis. A total of 2 liters of cloudy, dark anthony, red tinged fluid was removed.Stopped fluid removal at 2 liters, small amount right pleural effusionremaining. A sample of the fluid was sent for laboratory analysis. CRITICAL RESULT: No. COMMUNICATION: Per this written report. Preliminary report signed by SOLANGE Omalley on 06/06/2025 11:52 AM By electronically signing this report, I, the attending physician, attestthat I was not present for the procedure(s) but agree with the finaledited report. Drafted by SOLANGE Omalley on 06/06/2025 11:50 AM Final report signed by Mike Orr MD on 06/06/2025 4:13 PM us Marianna Gordon SECURITY SOLUTIONS ARCHITECT IMG US PROCEDURES Final Resu lt * Protein - Ascites (06/06/2025 9:36 AM EDT) Total Protein, Fluid 0.8 g/dL 06/06/2025 2:36 PM EDT [facility] Ascites Peritoneal cavity structure / Unknown 06/06/2025 9:36 AM EDT 06/06/2025 1:21 PM EDT Narrative [facility] - 06/06/2025 2:36 PM EDT This test was developed and its performance characteristics determined by [facility]. The U.S. Food and Drug Administration has not approved or cleared this test. However, FDA clearance or approval is not currently required for clinical use. The results are not intended to be used as the sole means for clinical diagnosis or patient management decisions. us Marianna N Cheeks SECURITY SOLUTIONS ARCHITECT LAB BODY FLUIDS AND STOOLS O RDERABLES Final Result Performing Organization Address [facility] Co de Phone Number [facility] [address] [place] [address] * Body fluid, cytospin, pathologist interpretation (06/06/2025 9:35 AM EDT) Specimen Type Body Fluid LAB HEMATOLOGY METHOD 06/07/2025 3:15 PM EDT [facility] Specimen Source, Body Fluid Peritoneal Fluid LAB HEMATOLOGY METHOD 06/07/2025 3:15 PM EDT [facility] Clinical Diagnosis, Body Fluid Ascites LAB HEMATOLOGY METHOD 06/07/2025 3:15 PM EDT [facility] Interpretation , Body Fluid No evidence of malignancy Predominantly chronic inflammatory cells Moderate blood A resident was involved in the service. I attest I examined the relevant preparations for the specimens and confirmed the diagnosis or interpretation. 06/07/2025 3:15 PM EDT [facility] Pathologist Signature, Body Fluid 06/07/2025 3:15 PM EDT [facility] Comment:Reviewed by: Kadie dobbs MD LAB CP ASR DISCLAIMER Yes 06/07/2025 3:15 PM EDT [facility] Body Fluid Peritoneal fluid / Unknown Non-blood Collection / Unknown 06/06/2025 9:35 AM EDT 06/06/2025 1:21 PM EDT us Marianna N Cheeks SECURITY SOLUTIONS ARCHITECT LAB BODY FLUIDS AND STOOLS O RDERABLES Final Result Performing Organization Address [facility]/ZIP Co de Phone Number [facility] [address] [place] [address] * (ABNORMAL) Body Fluid Cell Count With Diff - Ascites (06/06/2025 9:35 AM EDT) Color, Body fluid Red LAB HEMATOLOGY METHOD 06/06/2025 5:43 PM EDT [facility] Appearance, Body fluid Cloudy(A) LAB HEMATOLOGY METHOD 06/06/2025 5:43 PM EDT [facility] Volume, Body fluid 35.0 cc LAB HEMATOLOGY METHOD 06/06/2025 5:43 PM EDT [facility] Fluid Container Specimen received in miscellaneous container LAB HEMATOLOGY METHOD 06/06/2025 5:43 PM EDT [facility] Red Blood Cell Count, Body fluid 29,000 uL LAB HEMATOLOGY METHOD 06/06/2025 5:43 PM EDT [facility] Total Nucleated Cell Count, Body fluid 319 uL LAB HEMATOLOGY METHOD 06/06/2025 5:43 PM EDT [facility] Neutrophils %, Body fluid 4 % LAB HEMATOLOGY METHOD 06/06/2025 5:43 PM EDT [facility] Lymphocytes %, Body fluid 56 % LAB HEMATOLOGY METHOD 06/06/2025 5:43 PM EDT [facility] Monocytes/Macr ophages %, Body fluid 36 % LAB HEMATOLOGY METHOD 06/06/2025 5:43 PM EDT [facility] Eosinophils %, Body fluid 0 % LAB HEMATOLOGY METHOD 06/06/2025 5:43 PM EDT [facility] Lining/Mesothe lial Cells %, Body fluid 4 % LAB HEMATOLOGY METHOD 06/06/2025 5:43 PM EDT [facility] Neutrophils Absolute (PMN), Body fluid 13 uL LAB HEMATOLOGY METHOD 06/06/2025 5:43 PM EDT [facility] Lymphocytes Absolute, Body fluid 179 uL LAB HEMATOLOGY METHOD 06/06/2025 5:43 PM EDT [facility] Monocytes/Macr ophages Absolute, Body fluid 115 uL LAB HEMATOLOGY METHOD 06/06/2025 5:43 PM EDT [facility] Eosinophils Absolute, Body fluid 0 uL LAB HEMATOLOGY METHOD 06/06/2025 5:43 PM EDT [facility] Basophils Absolute, Body fluid 0 uL LAB HEMATOLOGY METHOD 06/06/2025 5:43 PM EDT [facility] Lining/Mesothe lial Cells Absolute, Body fluid 13 uL LAB HEMATOLOGY METHOD 06/06/2025 5:43 PM EDT [facility] Comment, Body fluid None LAB HEMATOLOGY METHOD 06/06/2025 5:43 PM EDT [facility] Comment:This is an appended report. These results have been appended to a previously preliminary verified report. Basophils %, Body fluid 0 % LAB HEMATOLOGY METHOD 06/06/2025 5:43 PM EDT [facility] Body Fluid Peritoneal fluid / Unknown Non-blood Collection / Unknown 06/06/2025 9:35 AM EDT 06/06/2025 1:21 PM EDT Marianna Gordon SECURITY [employer]UTIONS ARCHITECT LAB BODY FLUIDS AND STOOLS ORDERABLES NO SPECIMEN TYPE/SOURCE Final Result [facility] [address] [place] [address] documented in this encounter Visit Diagnoses Diagnosis Other ascites documented in this encounter Administered Medications Inactive Administered Medications - up to 3 most recent administrations Medication Order MAR Action Action Date Dose Rate Site albumin human 25 % infusion 37.5 g 37.5 g, Intravenous, Once as needed, 1 dose, Starting on Sarahi 06/06/25 at 0828, Until Sarahi 06/06/25 at 1052, Routine, For 5-6.9 L drained New Bag 06/06/2025 10:52 AM EDT 37.5 g lidocaine 1% in sodium bicarbonate (buffered lidocaine)10 mL 10 mL, Infiltration, Once, 1 dose, On Sarahi 06/06/25 at 0900, Routine, Holding - Preprocedure Given 06/06/2025 10:20 AM EDT 10 mL Given 06/06/2025 9:33 AM EDT 10 mL Le ft Lower Abdomen documented in this encounter Additional Health Concerns Assessment Noted Time PHQ-9 Depression Total Score: 0 03/06/20 1:21 PM EDT A fall risk assessment has been complete d for the patient 05/29/2025 2:34 PM EDT A Body Mass Index follow-up plan has been documented for the patient 06/06/2025 11:51 AM EDT documented as of this encounter Care Teams Chief Technician Relationship Specialty Start Date End Date Alvarez Zimmer MD [address] [place] [address] PCP - General Family Medicine 12/07/24 Lea Fernando [address] [place] [address] Administrator Social Welfare Endocrinology 08/29/24 Rachel Ray, ADRI [address] [address] Nurse Practitioner Gastroenterology 09/24/24 Tamera Isabel LPN VALUE-BASED TRANSFORMATION PROGRAM Licensed Practical Nurse 05/29/25 documented as of this encounter
--- OUTSIDE RECORDS SUMMARY | 2025-06-06 11:20 | XMS_ITS | Encounter Summary ---
Author Organization Healthcare Address [address] [place] [address] Care Team Providers Care Director Of Academic Name Role Phone Lea Fernando Unavailable [phone] Rachel Ray MASTER CRAFTSMAN Unavailable [phone] Alvarez Zimmer MD Primary Care Provider [phone] Tamera Isabel FURNACE AND WASH EQUIPMENT OPERATOR Unavailable Unavailabl e Encounter Details Date Type Department Care Team (Latest Contact Info) Description 06/06/2025 11:20 AM EDT - 06/06/2025 11:59 PM EDT Hospital Encounter [facility] H Radiology [address] [place] [address] Discharge Disposition: Home or Self Care Social [...] How often do you attend [facility] or yarsani services? Patient unable to answer [...] more drinks on one occasion? Never 06/05/2025 [facility]at ional Health - Occupational Stress [...] living in a prison (including now)? No 05/29/2025 CAGE ASSESSMENT Answer [...] first t kennedy in the morning (EYE-DIRECTOR MEDICAL SAFETY) to steady your nerves or to get rid of a hangover? 0 10/22/2024 CAGE Questionnaire Score 0 024 Utilities Answer Date Recorded In the past 12 months has th e [employer], gas, oil, or water company threatened to [...] MINI PEN NEEDLES 31G X 5 MM [facility] 04/22/2025 5 B-D ULTRAFINE III SHORT PEN 31G X 8 MM [facility] 01/14/2025 5 Blood Glucose Monitoring Suppl (Blood [...] 04/17/2025 5 ergocalciferol (Vitamin D-2) 1.25 MG (25119 UT) capsuleIndications: Vitamin D deficiency Take 1 [...] 06/11/2025 5 documented as of this encounter Plan of Treatment Upcoming Encounters Date Type Department Care Team (Late st Contact Info) Description 08/01/2025 10:00 AM EDT Appointment [facility] Interventional Radiology [address] [place] [address] 08/01/2025 11:00 AM EDT Appointment [facility] Interventional Radiology [address] [place] [address] 08/08/2025 11:15 AM EDT Appointment [facility] Interventional Radiology [address] [place] [address] 08/08/2025 12:15 PM EDT Appointment [facility] Inter[facility] Radiology [address] [place] [address] 2025 10:00 AM EDT Appointment [facility] Interventional Radiology [address] [place] [address] 2025 11:00 AM EDT Appointment [facility] Interventional Radiology [address] [place] [address] 08/20/2025 9:30 AM EDT Clinical Support [facility] [address] [place] [address] 08/20/2025 10:30 AM EDT Social Work [facility] [address] [place] [address] [place] [address] 08/20/2025 11:00 AM EDT Office Visit [facility] [address] [place] [address] Jude Duque MD [address] [place] [address] documented as of this encounter [...] Nory Singh MD on 06/06/2025 12:18 PM Marianna Gordon MASTER CRAFTSMAN IMG XR PROCEDURES Final Resu lt documented [...] as of this encounter Care Teams Director Of Academic Relationship Specialty Start Date End Date Alvarez Zimmer MD [address] [place] [address] PCP - General Family Medicine 12/07/24 Lea Fernando [address] [place] [address] Station Mechanic Helper Endocrinology 08/29/24 Rachel Ray APRN [address] [place] [address] Nurse Practitioner Gastroenterology 09/24/24 Tamera Isabel LPN VALUE-BASED TRANSFORMATION PROGRAM Licensed Practical Nurse 05/29/25 documented as of this encounter
--- OUTSIDE RECORDS SUMMARY | 2025-06-11 10:30 | XMS_ITS | Encounter Summary ---
Author Organization Healthcare Address [address] [place] [address] Care Team Providers Care Instructor Ballroom Dancing Name Role Phone Lea Fernando Unavailable [phone] Rachel Ray IGNITION SPECIALIST Unavailable [phone] Alvarez Zimmer MD Primary Care Provider [phone] Tamera Isabel DOUGHNUT MACHINE OPERATOR HELPER Unavailable Unavailabl e Reason for Visit * Consultation (Routine) - Closed Specialty Diagnoses / Procedures Referred By Contherbert t Referred To Contact Transplant Diagnoses End-stage liver disease (CMS/HCC) Gerson Arora MD [address] [address] Phone: tel: fax: [facility] [place] [address] [address] Phone: tel: fax: Referral ID Status Reason Start Date Expiration Date V isits Requested Visits Authorized [id number] Closed Specialty Services Required 05/14/2025 11/13/2026 1 1 Encounter Details Date Type Department Care Team (Late st Contact Info) Description 06/11/2025 10:30 AM EDT Social Work [facility] [address] [place] [address] [address] Lea Reilly, [place] [address] Social History Tobacco Use Types Packs/Day Years [...] week 01/10/2025 How often do you attend [facility] or mormonism services? Patient unable to answer 01/10/2025 Do you belong to any clubs o r organizations such as jew groups, unions, fraternal or athletic groups, or [...] week 05/29/2025 How often do you attend [facility] or mormonism services? Never 05/29/2025 Do you belong to any clubs o r organizations such as jew groups, unions, fraternal or athletic groups, or [...] more drinks on one occasion? Never 06/05/2025 [facility] Occupat ional Health - Occupational Stress [...] time in the past 12 m [facility], were you homeless or living in a mcfp (including now)? No 05/29/2025 CAGE ASSESSMENT Answer [...] drink first t kennedy in the morning (EYE-BOX CUTTER) to steady your nerves or to get [...] days 06/11/2025 10:59 AM EDT Suhail Stephen A Feeling tired or having kamala le energy Several days 06/11/2025 10:59 AM EDSuhail Doherty Poor appetite or overeating Several days 06/11/2025 10 :59 AM EDT Suhail Stephen A Feeling bad about yourself - or that you are a failure or have let yourself or your family down Several days 06/11/2025 10:59 AM EDT Suhail Ramirez A Trouble concentrating on thi ngs, such as reading the newspaper or watching television Several days 06/11/2025 10:59 AM EDSuhail Doherty A Moving or speaking so slowly that other people could have noticed? Or the opposite - being so fidgety or restless that you have been moving around a lot more than usual. Several days 06/11/2025 10:59 AM EDT Suhail Stephen Thoughts that you would be better off or hurting yourself in some way Not at all 06/11/2025 10:59 AM EDSuhail Doherty Patient Health Questionnaire -9 Score 6 06/11/2025 10:59 AM EDSuhail Doherty * If you checked off any problems [...] discharged, she returned to her home, with 24/ care provided by mother. This last only a few days before her care became too much for mother to handle. Pt then returned to her sister's home in [place] where both sister and mother provided pt [...] Appointment [facility] Interventional Radiology [address] [place] [address] 08/01/2025 11:00 AM EDT Appointment [facility] Interventional Radiology [address] [place] [address] 08/08/2025 11:15 AM EDT Appointment [facility] Inter[facility] Radiology [address] [place] [address] 08/08/2025 12:15 PM EDT Appointment [facility] Inter[facility] Radiology [address] [place] [address] 2025 10:00 AM EDT Appointment [facility] Radiology [address] [place] [address] 2025 11:00 AM EDT Appointment [facility] Inter[facility] Radiology [address] [place] [address] 08/20/2025 9:30 AM EDT Clinical Support [facility] [place] [address] [place] [address] 08/20/2025 10:30 AM EDT Social Work [facility] [place] [address] [facility] [address] [place] [address] Deysi Ortega [place], [place] [id number] 08/20/2025 11:00 AM EDT Office Visit [facility] [place] [address] [place] [facility] [address] [place] [address] Jude Duque MD [address] [facility] [address] [place] [address] documented as of this encounter Visit Diagnoses Not on filedocumented in this encounter Additional Health Concerns Assessment Noted Time PHQ-9 Depression Total Score: 6 06/11/20 10:59 AM EDT A fall risk assessment has been complete d for the patient 06/11/2025 10:59 AM EDT A Body Mass Index follow-up plan has been documented for the patient 06/11/2025 12:07 PM EDT documented as of this encounter Care Teams Instructor Ballroom Dancing Relationship Specialty Start Date End Date Alvarez Zimmer MD [address] [place] [address] PCP - General Family Medicine 12/07/24 Lea Fernando [address] [facility] [address] [place] [address] [facility] Endocrinology 08/29/24 Rachel Ray, IGNITION SPECIALIST [address] [place] [address] [address] Nurse Practitioner Gastroenterology 09/24/24 Tamera Isabel LPN VALUE-BASED TRANSFORMATION PROGRAM Licensed Practical Nurse 05/29/25 documented as of this encounter
--- OUTSIDE RECORDS SUMMARY | 2025-06-11 11:20 | XMS_ITS | Encounter Summary ---
Author Organization Healthcare Address [address] [place] [address] Care Team Providers Care Retail Office Associate Name Role Phone Lea Fernando Unavailable [phone] Rachel Ray NAPKIN MACHINE OPERATOR Unavailable [phone] lAvarez Zimmer MD Primary Care Provider [phone] Tamera Isabel AIDS SOCIAL WORKER Unavailable Unavailabl e Reason for Visit * Reason Comments Pre-Liver Txp Follow-up Encounter Details Date Type Department Care Team (Latest Contact Info) Description 06/11/2025 11:20 AM EDT Office Visit [facility] [address] [facility] [address] [place] [address] Octavia Herrera, MARIA GUADALUPE [address] [place] [address] Hepatic encephalopathy (CMS/HCC) (Primary Dx); [...] How often do you attend chur or bahai services? Patient unable to answer 01/10/2025 Do [...] often do you attend chur ch or bahai services? Never 05/29/2025 Do you belong to [...] more drinks on one occasion? Never 06/05/2025 [facility] - Occupational Stress Questionnaire Answer [...] any time in the past 12 m [facility], were you homeless or living [...] drink first t kennedy in the morning (EYE-FASHION JOURNALIST) to steady your nerves or to get [...] down Several days 06/11/2025 10:59 AM EDT Shuail Ramirez Trouble concentrating on thi ngs, such as reading the newspaper or watching television Several days 06/11/2025 10:59 AM EDT Suhail Stephen A Moving or speaking so slowly that [...] is when she was living alone in [place]. Reports she didn't know what she was doing, time, day, etc. Now staying with sister in [place]. Reports she has ordered a button thing [...] fatty liver since 1996. Had admission to [facility] for hepatic encephalopathy in 01/2024. Was on [...] her stomach I instructed her to stop JHONNY quinones today Last committee preview note 01/14/25 - SW recommended neurocog eval Neurocog joyce was seen on 02/05/25 - Overall, the [...] onher monitor and reached out to her parquetry floor layer and they have been adjusting. # Osteoporosis - DEXA scan done today showed osteoporosis Health Maintenance: Immune to Hep A, nonimmune to hep B. Needs Hep B vaccine but could not be given in transplant clinic due to her insurance. Instructed her to obtain at [facility] She reports that she had a colonoscopy done a year ago at [facility] in [place]. Colonoscopy 09/2019- report reviewed and showed left [...] Appointment [facility] [address] [place] [address] 08/01/2025 11:00 AM EDT Appointment [facility] [address] [place] [address] 08/08/2025 11:15 AM EDT Appointment [facility] [address] [place] [address] 08/08/2025 12:15 PM EDT Appointment [facility] [address] [place] [address] 2025 10:00 AM EDT Appointment [facility] [address] [place] [address] 2025 11:00 AM EDT Appointment [facility] [address] [place] [address] 08/20/2025 9:30 AM EDT Clinical Support [facility] [address] [place] [address] 08/20/2025 10:30 AM EDT Social Work [facility] [address] [place] [address] Deysi Ortega [place], [place] [id number] 08/20/2025 11:00 AM EDT Office Visit [facility] [address] [place] [address] Jude Duque MD [address] [place] [address] documented as of this encounter [...] documented as of this encounter Care Teams Retail Office Associate Relationship Specialty Start Date End Date Alvarez Zimmer MD [facility] [place] [address] PCP - General Family Medicine 12/07/24 Lea Fernando [address] [place] [address] [employer]ox Machine Operator Endocrinology 08/29/24 Rachel Ray APRN [address] [facility] [address] [place] [address] Nurse Practitioner Gastroenterology 09/24/24 Tamera Isabel LPN VALUE-BASED TRANSFORMATION PROGRAM Licensed Practical Nurse 05/29/25 documented as of this encounter
--- OUTSIDE RECORDS SUMMARY | 2025-06-13 10:56 | XMS_ITS | Encounter Summary ---
Author Organization [facility] Address [address] [place] [address] Care Team Providers Care Severity Of Illness Coordinator Name Role Phone Lea Fernando Unavailable [phone] Rachel Ray BURNER OPERATOR Unavailable [phone] Alvarez Zimmer MD Primary Care Provider [phone] Tamera Isabel SALES SERVICE MANAGER Unavailable Unavailabl e Reason for Referral * Clinic-Administered Medication (Routine) - Closed Specialty Diagnoses / Procedures Referred By Eder zhu Referred To Contact Diagnoses Other ascites Procedures MO ABDOM PARACENTESIS DX/THER W IMAGING GUIDANCE Shaniqua Mccurdy APRN [address] [place] [address] Phone: tel: fax: [facility] [address] [place] [address] Phone: tel: fax: Referral ID Status Reason Start Date Expiration Date Visits Re quested Visits Authorized [id number] Closed 06/13/2025 12/13/2026 1 1 * Imaging (Routine) - Closed Specialty Diagnoses / Procedures Referred By Eder zhu Referred To Contact Radiology Diagnoses Other ascites Procedures US Guided Thoracentesis Cheeks, Marianna N, BURNER OPERATOR [address] [place] [address] Phone: tel: fax: Referral ID Status Reason Start Date Expiration Date Visits Re quested Visits Authorized [id number] Closed 05/22/2025 11/21/2026 1 1 * Imaging (Routine) - Closed Specialty Diagnoses / Procedures Referred By Contac audra Referred To Contact Radiology Diagnoses Other ascites Procedures US Guided Abdominal Paracentesis Marianna Gordon APRN [address] [place] [address] Phone: tel: fax: Referral ID Status Reason Start Date Expiration Date Visits Re quested Visits Authorized [id number] Closed 05/22/2025 11/21/2026 1 1 Reason for Visit * Imaging (Routine) - Closed Specialty Diagnoses / Procedures Referred By Eder zhu Referred To Contact Radiology Diagnoses Other ascites Procedures US Guided Abdominal Paracentesis Marianna Gordon APRN [address] [place] [address] Phone: tel: fax: Referral ID Status Reason Start Date Expiration Date Visits Re quested Visits Authorized [id number] Closed 05/22/2025 11/21/2026 1 1 Encounter Details Date Type Department Care Team (Latest Contact Info) Description 06/13/2025 10:56 AM EDT - 06/13/2025 1:31 PM EDT Hospital Encounter [facility] Interventional Radiology [address] [place] [address] Alvarez Mcclure Other ascites Discharge Disposition: Home or Self [...] How often do you attend chur or yazidism services? Patient unable to answer 01/10/2025 Do [...] often do you attend chur ch or yazidism services? Never 05/29/2025 Do you belong to [...] drinks on one occasion? Never 06/05/2025 [facility] - [...] were you homeless or living in a snf (including now)? No 05/29/2025 CAGE ASSESSMENT Answer [...] drink first t kennedy in the morning ([employer]ECT[employer] LAYOUT PERSON) to steady your nerves or to get [...] Sign Reading Time Taken Comments Blood Pressure 121/57 06/13/2025 1:22 PM EDT Pulse 102 06/13/2025 1:30 PM EDT Temperature 36.2 C (97.1 F) 06/13/2025 1:22 PM EDT Respiratory Rate 15 06/13/2025 1:30 PM EDT Oxygen Saturation 100% 06/13/2025 1:30 PM EDT Inhaled Oxygen Concentration - - Weight 85.7 kg (188 lb 15 oz) 06/13/2025 11:31 A M EDT Height 165.1 cm (5' 5 ) 06/13/2025 11:31 AM EDT Body Mass Index 31.44 06/13/2025 11:31 AM EDT documented in this encounter Medications at Time of Discharge Abaloparatide (Tymlos) 3120 MCG/1.56ML solution pen-injector Inject 80 mcg under the skin daily. 1.56 mL 2 04/22/2025 calcitriol (Rocaltrol) 0.25 MCG capsuleIndications: Chronic kidney disease, stage 3b (CMS/HCC) Take 1 capsule by mouth daily. 30 capsule 06/10/2025 calcium carbonate EX (Tums E-X) 750 MG [...] hyperglycemia, with long-term current use of insulin ([facility]) Inject 0.6 mg under the skin 1 [...] day. Dx E11.65 1 kit 01/18/2025 5 capsaicin (Zostrix) 0.025 % cream Apply thin layer to feet nightly WITH GLOVES 56.6 g 1 04/24/2025 5 cetirizine (ZyrTEC) 10 MG tabletIndications:E TD (Eustachian tube dysfunction), bilateral Take 1 tablet by mouth daily. 30 tablet 2 04/17/2025 5 ergocalciferol (Vitamin D-2) 1.25 MG (35825 UT) capsuleIndications: Vitamin D deficiency Take 1 [...] Post-Procedure Note - Shaniqua Mccurdy APRN - 06/13/2025 12:30 PM EDT Vascular and Interventional Radiology Brief Postprocedure Note Performed by; Shaniqua Mccurdy APRN Pre-operative Diagnosis: Ascites Post-operative Diagnosis: same Type of Anesthesia: Local Description of Findings: Moderate anechoic fluid collection in peritoneal space Technical/Surgical Procedures Used: US guided paracentesis. Specimen Obtained: Yes Complications: None Estimated Blood Loss: none Procedure Events Event Event Time See detailed result report with images in PACS. The patient tolerated the procedure well without incident or complication and is in stable condition. * Post-Procedure Note - Shaniqua Mccurdy APRN - 06/13/2025 12:30 PM EDT Vascular and Interventional Radiology Brief Postprocedure Note Performed by: Shaniqua Mccurdy APRN Pre-operative Diagnosis: Pleural effusion Post-operative Diagnosis: same Type of Anesthesia: Local Description of Findings: Large right, simple pleural effusion. Technical/Surgical Procedures Used: US guided thoracentesis. Specimen Obtained: No Complications: None Estimated Blood Loss: none Procedure Events Event Event Time See detailed result report with images in PACS. The patient tolerated the procedure well without incident or complication and is in stable condition. * Interval H&P Note - Shaniqua Mccurdy APRN - 06/13/2025 12:30 PM EDT Reviewed previous H/P, no significant interval change. Here for paracentesis and thoracentesis. Source Note - Marianna Gordon APRN - 06/06/2025 [...] are consistent with and integrated into the [place] Diseases [...] is no recent study available for direct nafs-jz-msev comparison. 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 Marianna Gordon, BURNER OPERATOR Interventional Radiology [phone] [1] Past Medical History: Diagnosis Date ADHD (attention deficit hyperactivity disorder) Allergic Anxiety disorder, unspecified Anxiety Bleeding gums Blood in urine Cataract Chronic kidney disease Cirrhosis (CMS/HCC) Colon cancer screening 09/20/2019 Added automatically from request for surgery [id number] Coronary artery disease Depression 1995 Diabetes mellitus [...] 1979 BLADDER SURGERY N/A Bladder surgery from [facility] BREAST BIOPSY 2011 BREAST SURGERY 2010 BUNIONECTOMY Right CATARACT EXTRACTION Bilateral 2016 CHOLECYSTECTOMY 1979 ESOPHAGOGASTRODUODENOSCOPY HYSTERECTOMY N/A Hysterectomy from [facility] KNEE SURGERY Bilateral ORAL SURGERY N/A Oral surgery from [facility] OTHER SURGICAL HISTORY 2014 ROOT CANAL WISDOM [...] Rfl: 1 ergocalciferol (Vitamin D-2) 1.25 MG (75730 UT) capsule, Take 1 capsule by mouth [...] lidocaine)10 mL, 10 mL, Infiltration, Once, Micheal Glasgow, BURNER OPERATOR, DNP Insert peripheral IV, , , Once AND Saline lock IV, , , Once AND sodium chloride 0.9 % flush10 mL, 10 mL, Intravenous, q12h AND sodium chloride 0.9 % flush 10 mL, 10 mL, Intravenous, PRN,Micheal Glasgow, BURNER OPERATOR, DNP documented in this encounter Plan of Treatment Upcoming Encounters Date Type Department Care Team (Late st Contact Info) Description 08/01/2025 10:00 AM EDT Appointment [facility] Interventional Radiology [address] [place] [address] 08/01/2025 11:00 AM EDT Appointment [facility] Inter[facility] Radiology [address] [place] [address] 08/08/2025 11:15 AM EDT Appointment [facility] Inter[facility]iology [address] [place] [address] 08/08/2025 12:15 PM EDT Appointment [facility] [address] [place] [address] 2025 10:00 AM EDT Appointment [facility]iology [address] [place] [address] 2025 11:00 AM EDT Appointment [facility] Inter[facility] Radiology [address] [place] [address] 08/20/2025 9:30 AM EDT Clinical Support [facility] [address] [place] [address] 08/20/2025 10:30 AM EDT Social Work [facility] [address] [place] [address] [place] [address] 08/20/2025 11:00 AM EDT Office Visit [facility] [address] [place] [address] Jude Duque MD [address] [place] [address] documented as of this encounter Procedures Procedure Name Priority Date/Time Associated Diagnosis Comments XR CHEST 1 VIEW STAT 06/13/2025 1:45 PM EDT US GUIDED ABDOMINAL PARACENTESIS Routine 06/13/2025 1:18 PM EDT Other ascites US GUIDED THORACENTESIS Routine 06/13/20 1:18 PM EDT Other ascites BODY FLUID CELL COUNT W/ MANUAL DIFFERENTIAL Routine 06/13/2025 12:35 PM EDT BODY FLUID, CYTOSPIN, PATHOLOGIST INTERPRETATION Routine 06/13/2025 12:35 PM EDT TOTAL PROTEIN, PERITONEAL FLUID Routine 06/13/2025 12:35 PM EDT GLUCOSE, PERITONEAL FLUID Routine 06/13/2025 12:35 PM EDT documented in this encounter Results * XR Chest 1 View (06/13/2025 1:45 PM EDT) Anatomical Region Laterality Modality Chest Digital Radiogra phy Impressions 06/13/2025 1:49 PM EDT No pneumothorax. CRITICAL RESULT: No. COMMUNICATION: Per this written report. Drafted by Alvarez Brenner MD on 06/13/2025 1:48 PM Final report signed by Alvarez Brenner MD on 06/13/2025 1:49 PM Narrative 06/13/2025 1:49 PM EDT CLINICAL INDICATION: s/p thora TECHNIQUE: XR CHEST 1 VIEW COMPARISON: June 06, 2025 FINDINGS: Small right pleural effusion, similar in size to the prior exam from last week. Increased right basilar opacity, likely atelectasis. No edema or consolidation. No pneumothorax. Procedure Note Alvarez Brenner MD - 06/13/2025 CLINICAL INDICATION: s/p thora TECHNIQUE: XR CHEST 1 VIEW COMPARISON: June 06, 2025 FINDINGS: Small right pleural effusion, similar in size to the prior exam from lastweek. Increased right basilar opacity, likely atelectasis. No edema orconsolidation. No pneumothorax. IMPRESSION: No pneumothorax. CRITICAL RESULT: No. COMMUNICATION: Per this written report. Drafted by Alvarez Brenner MD on 06/13/2025 1:48 PM Final report signed by Alvarez Brenner MD on 06/13/2025 1:49 PM us Shaniqua Mccurdy BURNER OPERATOR IMG XR PROCEDURES Final Resu lt * US Guided Thoracentesis (06/13/2025 1:18 PM EDT) Anatomical Region Laterality Modality Chest Ultrasound Impressions 06/13/2025 3:40 PM EDT Technically successful ultrasound guided thoracentesis. A total of 2.1 L of clear yellow fluid was removed. A sample of the fluid was sent for laboratory analysis. 50 g IV Albumin given, as patient also had 5.1L removed from paracentesis. CRITICAL RESULT: No. COMMUNICATION: Per this written report. Preliminary report signed by SOLANGE Singleton on 06/13/2025 1:23 PM By electronically signing this report, I, the attending physician, attest that I was not present for the procedure(s) but agree with the final edited report. Drafted by SOLANGE Singleton on 06/13/2025 1:21 PM Final report signed by Marcel Magaña MD on 06/13/2025 3:40 PM Narrative 06/13/2025 3:40 PM EDT CLINICAL INDICATION: Gabi Zimmer is a 64 y.o. 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 TECHNIQUE: Internal Salesperson: Shaniqua Mccurdy APRN Secondary Boom Worker: None. Nurse: Bao Technologist: Kalina Phillips Dose: NA Medications: Continuous physiologic monitoring provided by a qualified healthcare professional. Administered: 1% Lidocaine SQ. Antibiotics: NA Time out: 1207 Procedure: After discussion of risks and benefits, [...] permanent storage in PACS. A total of 2.1 L of clear yellow fluid was removed. The needle was removed and occlusive dressing applied. The patient tolerated the procedure well. The patient left the IR suite in stable condition. COMPARISON: None. FINDINGS: Large right pleural fluid. COMPLICATION: No. Procedure Note Marcel Magaña MD - 06/13/2025 CLINICAL INDICATION: Gabi Zimmer is a 64 y.o. 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 TECHNIQUE: Internal Salesperson: Shaniqua Mccurdy APRN Secondary Boom Worker: None. Nurse: Bao Technologist: Kalina Phillisp Dose: NA Medications: Continuous physiologic monitoring provided by a qualifiedhealthcare professional. Administered: 1% Lidocaine SQ. Antibiotics: NA Time out: 1207 Procedure: After discussion of risks and benefits, [...] to permanentstorage in PACS. A total of 2.1 L of clear yellow fluid was removed. Theneedle was removed and occlusive dressing applied. The patient tolerated the procedure well. The patient left the IR suitein stable condition. COMPARISON: None. FINDINGS: Large right pleural fluid. COMPLICATION: No. IMPRESSION: Technically successful ultrasound guided thoracentesis. A total of 2.1 L of clear yellow fluid was removed. A sample of the fluid was sent for laboratory analysis. 50 g IV Albumin given, as patient also had 5.1L removed from paracentesis. CRITICAL RESULT: No. COMMUNICATION: Per this written report. Preliminary report signed by SOLANGE Singleton on 06/13/2025 1:23 PM By electronically signing this report, I, the attending physician, attestthat I was not present for the procedure(s) but agree with the finaledited report. Drafted by SOLANGE Singleton on 06/13/2025 1:21 PM Final report signed by Marcel Magaña MD on 06/13/2025 3:40 PM us Marianna Gordon BURNER OPERATOR IMG US PROCEDURES Final Resu lt * US Guided Abdominal Paracentesis (06/13/2025 1:18 PM EDT) Anatomical Region Laterality Modality Abdomen Ultrasound Impressions 06/13/2025 3:40 PM EDT Technically successful US-guided paracentesis. A total of 5.1 liters of clear yellow fluid was removed. A sample of the fluid was sent for laboratory analysis. Administered Albumin 50 g IV once post procedure CRITICAL RESULT: No. COMMUNICATION: Per this written report. Preliminary report signed by SOLANGE Singleton on 06/13/2025 1:24 PM By electronically signing this report, I, the attending physician, attest that I was not present for the procedure(s) but agree with the final edited report. Drafted by SOLANGE Singleton on 06/13/2025 1:23 PM Final report signed by Marcel Magaña MD on 06/13/2025 3:40 PM Narrative 06/13/2025 3:40 PM EDT CLINICAL INDICATION: Gabi Zimmer is a 64 y.o. 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 TECHNIQUE: Internal Salesperson: Shaniqua Mccurdy APRN Secondary Boom Worker: None. Nurse: Bao Technologist: Kalina Phillips Dose: NA Medications: Continuous physiologic monitoring provided by a qualified healthcare professional. Administered: 1% Lidocaine SQ. Antibiotics: NA Time out: 1207 Procedure: After discussion of risks and benefits, [...] permanent storage in PACS. A total of 5.1 liters of clear yellow fluid was removed. The centesis catheter was removed and occlusive dressing applied. The patient tolerated the procedure well. The patient left the IR suite in stable condition. COMPARISON: None. FINDINGS: Large volume ascites. COMPLICATION: No. Procedure Note Marcel Magaña MD - 06/13/2025 CLINICAL INDICATION: Gabi Zimmer is a 64 y.o. 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 TECHNIQUE: Internal Salesperson: Shaniqua Mccurdy APRN Secondary Boom Worker: None. Nurse: Bao Technologist: Kalina Phillips Dose: NA Medications: Continuous physiologic monitoring provided by a qualifiedhealthcare professional. Administered: 1% Lidocaine SQ. Antibiotics: NA Time out: 1207 Procedure: After discussion of risks and benefits, [...] to permanentstorage in PACS. A total of 5.1 liters of clear yellow fluid was removed.The centesis catheter was removed and occlusive dressing applied. The patient tolerated the procedure well. The patient left the IR suitein stable condition. COMPARISON: None. FINDINGS: Large volume ascites. COMPLICATION: No. IMPRESSION: Technically successful US-guided paracentesis. A total of 5.1 liters of clear yellow fluid was removed. A sample of the fluid was sent for laboratory analysis. Administered Albumin 50 g IV once post procedure CRITICAL RESULT: No. COMMUNICATION: Per this written report. Preliminary report signed by SOLANGE Singleton on 06/13/2025 1:24 PM By electronically signing this report, I, the attending physician, attestthat I was not present for the procedure(s) but agree with the finaledited report. Drafted by SOLANGE Singleton on 06/13/2025 1:23 PM Final report signed by Marcel Magaña MD on 06/13/2025 3:40 PM us Marianna Gordon BURNER OPERATOR IMG US PROCEDURES Final Resu lt * Body fluid, cytospin, pathologist interpretation (06/13/2025 12:35 PM EDT) Specimen Type Body Fluid LAB HEMATOLOGY METHOD 06/14/2025 3:20 PM EDT [facility] Specimen Source, Body Fluid Peritoneal Fluid LAB HEMATOLOGY METHOD 06/14/2025 3:20 PM EDT [facility] Clinical Diagnosis, Body Fluid Ascites LAB HEMATOLOGY METHOD 06/14/2025 3:20 PM EDT [facility] Interpretation , Body Fluid No evidence of malignancy Predominantly chronic inflammatory cells Light blood A resident was involved in the service. I attest I examined the relevant preparations for the specimens and confirmed the diagnosis or interpretation. 06/14/2025 3:20 PM EDT [facility] Pathologist Signature, Body Fluid 06/14/2025 3:20 PM EDT [facility] Comment:Reviewed by: Kadie dobbs MD LAB CP ASR DISCLAIMER Yes 06/14/2025 3:20 PM EDT [facility] Body Fluid Peritoneal fluid / Unknown Non-blood Collection / Unknown 06/13/2025 12:35 PM EDT 06/13/2025 3:20 PM EDT us Shaniqua Mccurdy BURNER OPERATOR LAB BODY FLUIDS AND STOOLS O RDERABLES Final Result [facility] [address] [place] [address] * Glucose - Ascites (06/13/2025 12:35 PM EDT) Glucose, Fluid 179 mg/dL 06/13/2025 4:01 PM EDT [facility] Peritoneal Fluid Peritoneal cavity structure / Unknown Non-blood Collection / Unknown 06/13/2025 12:35 PM EDT 06/13/2025 3:20 PM EDT Narrative [facility] - 06/13/2025 4:01 PM EDT Peritoneal/Ascites No established reference interval. [...] 3) Glucose < 50 mg/dL. Shaniqua Mccurdy BURNER OPERATOR LAB BODY FLUIDS AND STOOLS O RDERABLES Final Result Performing Organization Address [facility] Co de Phone Number [facility] [address] [place] [address] * Protein - Ascites (06/13/2025 12:35 PM EDT) Total Protein, Fluid 0.7 g/dL 06/13/2025 4:01 PM EDT [facility] Peritoneal Fluid Peritoneal cavity structure / Unknown Non-blood Collection / Unknown 06/13/2025 12:35 PM EDT 06/13/2025 3:20 PM EDT Narrative [facility] - 06/13/2025 4:01 PM EDT This test was developed and its performance characteristics determined by [facility]. The U.S. Food and Drug Administration has not approved or cleared this test. However, FDA clearance or approval is not currently required for clinical use. The results are not intended to be used as the sole means for clinical diagnosis or patient management decisions. Shaniqua Nicole Calli BURNER OPERATOR LAB BODY FLUIDS AND STOOLS O RDERABLES Final Result Performing Organization Address [facility] Co de Phone Number [facility] [address] [place] [address] * (ABNORMAL) Body Fluid Cell Count With Diff - Ascites (06/13/2025 12:35 PM EDT) Color, Body fluid Juana Diaz LAB HEMATOLOGY METHOD 06/13/2025 6:15 PM EDT [facility] Appearance, Body fluid Cloudy(A) LAB HEMATOLOGY METHOD 06/13/2025 6:15 PM EDT [facility] Volume, Body fluid 9.5 cc LAB HEMATOLOGY METHOD 06/13/2025 6:15 PM EDT [facility] Fluid Container Tube 1 LAB HEMATOLOGY METHOD 06/13/2025 6:15 PM EDT [facility] Red Blood Cell Count, Body fluid 7,000 uL LAB HEMATOLOGY METHOD 06/13/2025 6:15 PM EDT [facility] Total Nucleated Cell Count, Body fluid 152 uL LAB HEMATOLOGY METHOD 06/13/2025 6:15 PM EDT [facility] Neutrophils %, Body fluid 2 % LAB HEMATOLOGY METHOD 06/13/2025 6:15 PM EDT [facility] Lymphocytes %, Body fluid 84 % LAB HEMATOLOGY METHOD 06/13/2025 6:15 PM EDT [facility] Monocytes/Macro phages %, Body fluid 10 % LAB HEMATOLOGY METHOD 06/13/2025 6:15 PM EDT [facility] Eosinophils %, Body fluid 1 % LAB HEMATOLOGY METHOD 06/13/2025 6:15 PM EDT [facility] Lining/Mesothel ial Cells %, Body fluid 3 % LAB HEMATOLOGY METHOD 06/13/2025 6:15 PM EDT [facility] Neutrophils Absolute (PMN), Body fluid 3 uL LAB HEMATOLOGY METHOD 06/13/2025 6:15 PM EDT [facility] Lymphocytes Absolute, Body fluid 128 uL LAB HEMATOLOGY METHOD 06/13/2025 6:15 PM EDT [facility] Monocytes/Macro phages Absolute, Body fluid 15 uL LAB HEMATOLOGY METHOD 06/13/2025 6:15 PM EDT [facility] Eosinophils Absolute, Body fluid 2 uL LAB HEMATOLOGY METHOD 06/13/2025 6:15 PM EDT [facility] Basophils Absolute, Body fluid 0 uL LAB HEMATOLOGY METHOD 06/13/2025 6:15 PM EDT [facility] Lining/Mesothel ial Cells Absolute, Body fluid 5 uL LAB HEMATOLOGY METHOD 06/13/2025 6:15 PM EDT [facility] Comment, Body fluid None LAB HEMATOLOGY METHOD 06/13/2025 6:15 PM EDT [facility] Comment:This is an appended report. These results have been appended to a previously preliminary verified report. Basophils %, Body fluid 0 % LAB HEMATOLOGY METHOD 06/13/2025 6:15 PM EDT [facility] Body Fluid Peritoneal fluid / Unknown Non-blood Collection / Unknown 06/13/2025 12:35 PM EDT 06/13/2025 3:20 PM EDT us Shaniqua Mccurdy BURNER OPERATOR LAB BODY FLUIDS AND STOOLS ORDERABLES NO SPECIMEN TYPE/SOURCE Final Result [facility] [address] [place] [address] documented in this encounter Visit Diagnoses Diagnosis Other ascites documented in this encounter Administered Medications Inactive Administered Medications - up to 3 most recent administrations Medication Order MAR Action Action Date Dose Rate Site albumin human 25 % infusion 12.5 g 12.5 g, Intravenous, Every 15 min PRN, 5 doses, Starting on Sarahi 06/13/25 at 1149, Until Tue06/14/25 at 0239, Routine, Intraprocedure, Give additional 12.5 g doses per albumin replacement chart New Bag 06/13/2025 12:59 PM EDT 12.5 g albumin human 25 % infusion 37.5 g 37.5 g, Intravenous, Once as needed, 1 dose, Starting on Sarahi 06/13/25 at 1149, Until Sarahi 06/13/25 at 1213, Routine, Intraprocedure, For 5-6.9 L drained New Bag 06/13/2025 12:13 PM EDT 37.5 g lidocaine (Xylocaine) 1 % injection Intradermal, As needed, Starting on Sarahi 06/13/25 at 1207, Until Sarahi 06/13/25 at 1254, Routine, Intraprocedure Given 06/13/2025 12:54 PM EDT 10 mL Fl ank Given 06/13/2025 12:07 PM EDT 10 mL L eft Lower Abdomen documented in this encounter Additional Health Concerns Assessment Noted Time PHQ-9 Depression Total Score: 6 06/11/20 10:59 AM EDT A fall risk assessment has been complete d for the patient 06/11/2025 10:59 AM EDT A Body Mass Index follow-up plan has been documented for the patient 06/13/2025 2:00 PM EDT documented as of this encounter Care Teams Severity Of Illness Coordinator Relationship Specialty Start Date End Date Alvarez Zimmer MD [address] [place] [address] PCP - General Family Medicine 12/07/24 Lea Fernando [address] [facility] [address] [place] [address] Wire Mesh Filter Fabricator Endocrinology 08/29/24 Rachel Ray, BURNER OPERATOR [address] [phone] Nurse Practitioner Gastroenterology 09/24/24 Tamera Isabel LPN VALUE-BASED TRANSFORMATION PROGRAM Licensed Practical Nurse 05/29/25 documented as of this encounter
--- OUTSIDE RECORDS SUMMARY | 2025-06-13 13:32 | XMS_ITS | Encounter Summary ---
Author Organization Healthcare Address [address] [place] [address] Care Team Providers Care Body Care Manager Name Role Phone Lea Fernando Unavailable [phone] Rachel Ray NEONATAL NURSE PRACTITIONER Unavailable [phone] Alvarez Zimmer MD Primary Care Provider [phone] Tamera Isabel JOURNAL ENTRY AUDIT CLERK Unavailable Unavailabl e Encounter Details Date Type Department Care Team (Latest Contact Info) Description 06/13/2025 1:32 PM EDT - 06/13/2025 11:59 PM EDT Hospital Encounter [facility] Radiology [address] [place] [address] Discharge Disposition: Home or Self Care Social [...] How often do you attend [facility] or holiness services? Patient unable to answer 01/10/2025 Do [...] How often do you attend chur or holiness services? Never 05/29/2025 Do you belong to [...] more drinks on one occasion? Never 06/05/2025 [facility] of Occupat ional Health - Occupational [...] any time in the past 12 m [facility], were you homeless or living in a alf (including now)? No 05/29/2025 CAGE ASSESSMENT Answer [...] drink first t kennedy in the morning (EYE-BUN PANNER) to steady your nerves or to get rid of a hangover? 0 10/22/2024 CAGE Questionnaire Score 0 024 Utilities Answer Date Recorded In the past 12 months has th e [employer], gas, oil, or water company threatened to [...] MINI PEN NEEDLES 31G X 5 MM [facility] 04/22/2025 5 B-D ULTRAFINE III SHORT PEN 31G X 8 MM [facility] 01/14/2025 5 Blood Glucose Monitoring Suppl (Blood [...] 04/17/2025 5 ergocalciferol (Vitamin D-2) 1.25 MG (09609 UT) capsuleIndications: Vitamin D deficiency Take 1 [...] Appointment [facility] [address] [place] [address] 08/01/2025 11:00 AM EDT Appointment [facility] [address] [place] [address] 08/08/2025 11:15 AM EDT Appointment [facility] [address] [place] [address] 08/08/2025 12:15 PM EDT Appointment [facility] [address] [place] [address] 2025 10:00 AM EDT Appointment [facility] [address] [place] [address] 2025 11:00 AM EDT Appointment [facility] [address] [place] [address] 08/20/2025 9:30 AM EDT Clinical Support [facility] [address] [place] [address] 08/20/2025 10:30 AM EDT Social Work [facility] [address] [place] [address] [place] [address] 08/20/2025 11:00 AM EDT Office Visit [facility] [address] [place] [address] Jude Duque MD [address] [place] [address] documented as of this encounter Procedures Procedure [...] MD on 06/13/2025 1:49 PM Shaniqua Mccurdy NEONATAL NURSE PRACTITIONER IMG XR PROCEDURES Final Resu lt documented [...] documented as of this encounter Care Teams Body Care Manager Relationship Specialty Start Date End Date Alvarez Zimmer MD [address] [place] [address] PCP - General Family Medicine 12/07/24 Lea Fernando [address] [facility] [address] [place] [address] Rodeo Rider Endocrinology 08/29/24 Rachel Ray, NEONATAL NURSE PRACTITIONER [address] [facility] [address] [place] [address] Nurse Practitioner Gastroenterology 09/24/24 Tamera Isabel LPN VALUE-BASED TRANSFORMATION PROGRAM Licensed Practical Nurse 05/29/25 documented as of this encounter
--- OUTSIDE RECORDS SUMMARY | 2025-06-20 09:03 | XMS_ITS | Encounter Summary ---
Author Organization Healthcare Address [address] [place] [address] Care Team Providers Care [employer] Wiring Technician Name Role Phone Lea Fernando Unavailable [phone] Rachel Ray [employer] Unavailable [phone] Alvarez Zimmer MD Primary Care Provider [phone] Tamera Isabel LPN Unavailable Unavailabl e Reason for Referral * Imaging (Routine) - Closed Specialty Diagnoses / Procedures Referred By Eder zhu Referred To Contact Radiology Diagnoses Other ascites Procedures US Guided Abdominal Paracentesis Preeti Andersen APRN [address] [place] [address] Phone: tel: fax: Referral ID Status Reason Start Date Expiration Date Visits Re quested Visits Authorized [id number] Closed 06/20/2025 12/20/2026 1 1 * Clinic-Administered Medication (Routine) - Closed Specialty Diagnoses / Procedures Referred By Eder zhu Referred To Contact Diagnoses Other ascites Procedures [place] ABDOM PARACENTESIS DX/THER W IMAGING GUIDANCE Preeti Andersen APRN [address] [place] [address] Phone: tel: fax: [facility] [address] [place] [address] Phone: tel: fax: Referral ID Status Reason Start Date Expiration Date Visits Re quested Visits Authorized [id number] Closed 06/20/2025 12/20/2026 1 1 * Imaging (Routine) - Closed Specialty Diagnoses / Procedures Referred By Contac t Referred To Contact Radiology Diagnoses Other ascites Procedures US Guided Thoracentesis Marianna Gordon APRN [address] [place] [address] Phone: tel: fax: Referral ID Status Reason Start Date Expiration Date Visits Re quested Visits Authorized [id number] Closed 05/23/2025 11/22/2026 1 1 Reason for Visit * Imaging (Routine) - Closed Specialty Diagnoses / Procedures Referred By Eder zhu Referred To Contact Radiology Diagnoses Other ascites Procedures US Guided Abdominal Paracentesis Marianna Gordon APRN [address] [place] [address] Phone: tel: fax: Referral ID Status Reason Start Date Expiration Date Visits Re quested Visits Authorized [id number] Closed 04/26/2025 10/26/2026 1 1 Encounter Details Date Type Department Care Team (Latest Contact Info) Description 06/20/2025 9:03 AM EDT - 06/20/2025 1:03 PM EDT Hospital Encounter [facility] Inter[facility] Radiology [address] [place] [address] Shanthi Rooney Other ascites Discharge [...] How often do you attend chur or oriental orthodox services? Patient unable to answer 01/10/2025 Do [...] often do you attend chur ch or oriental orthodox services? Never 05/29/2025 Do you belong to [...] more drinks on one occasion? 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 MDD: 60 units 04/23/2025 midodrine (Proamatine) 10 MG tablet Take 2 [...] from the original note were not included. [id number] Discharge Instructions for Paracentesis Paracentesis is a [...] fainting. Last Reviewed Date: 2025 00:00:00 ?? [id number] [employer]. All rights reserved. This information is not [...] Appointment [facility] [address] [place] [address] 08/01/2025 11:00 AM EDT Appointment [facility] [address] [place] [address] 08/08/2025 11:15 AM EDT Appointment [facility] [address] [place] [address] 08/08/2025 12:15 PM EDT Appointment [facility] [address] [place] [address] 2025 10:00 AM EDT Appointment [facility] [address] [place] [address] 2025 11:00 AM EDT Appointment [facility] [address] [place] [address] 08/20/2025 9:30 AM EDT Clinical Support [facility] [address] [place] [address] 08/20/2025 10:30 AM EDT Social Work [facility] [address] [place] [id number] Deys[place] [address] 08/20/2025 11:00 AM EDT Office Visit [facility] [address] [place] [address] Jude Duque MD [address] [place] [address] documented as of this [...] by ascites and intermittent hepatic hydrothorax. TECHNIQUE: Rail Crew Member: ADRI Andersen Secondary Mental Health Aides Teacher: None. Nurse: Padmini Technologist: Lilliana Phillips Dose: NA Medications: Continuous physiologic monitoring provided by a qualified healthcare professional. Administered: 1% Lidocaine SQ. Antibiotics: NA Time out: 2237 Procedure: After discussion of risks and benefits, [...] complicated by ascites and intermittent hepatichydrothorax. TECHNIQUE: Rail Crew Member: ADRI Andersen Secondary Mental Health Aides Teacher: None. Nurse: Padmini Technologist: Lilliana Phillips Dose: [...] MD on 06/23/2025 9:14 PM us Preeti Andersne [employer] IMG US PROCEDURES Final Result * US [...] by ascites and intermittent hepatic hydrothorax. TECHNIQUE: Rail Crew Member: ADRI Andersen Secondary Mental Health Aides Teacher: None. Nurse: Padmini Technologist: Lilliana Phillips Dose: [...] complicated by ascites and intermittent hepatichydrothorax. TECHNIQUE: Rail Crew Member: ADRI Andersen Secondary Mental Health Aides Teacher: None. Nurse: Padmini Technologist: Lilliana Phillips Dose: [...] on 06/23/2025 9:14 PM us Marianna Gordon [employer] IMG US PROCEDURES Final Resu lt * Body fluid, cytospin, pathologist interpretation (06/20/2025 12:03 PM EDT) Specimen Type Body Fluid LAB HEMATOLOGY METHOD 06/21/2025 4:37 PM EDT [facility] Specimen Source, Body Fluid Pleural, Right LAB HEMATOLOGY METHOD 06/21/2025 4:37 PM EDT [facility] Clinical Diagnosis, Body Fluid Pleural effusion LAB HEMATOLOGY METHOD 06/21/2025 4:37 PM EDT [facility] Interpretation , Body Fluid No evidence of malignancy Chronic inflammatory cells Lymphocytosis Moderate blood A resident was involved in the service. I attest I examined the relevant preparations for the specimens and confirmed the diagnosis or interpretation. 06/21/2025 4:37 PM EDT [facility] Pathologist Signature, Body Fluid 06/21/2025 4:37 PM EDT [facility] Comment:Reviewed by: Kadie dobbs MD LAB CP ASR DISCLAIMER Yes 06/21/2025 4:37 PM EDT [facility] Body Fluid Structure of right pleural cavity / Unknown Non-blood Collection / Unknown 06/20/2025 12:03 PM EDT 06/20/2025 2:44 PM EDT us Preeti Andersen [employer] LAB BODY FLUIDS AND STO OLS ORDERABLES Final Result [facility] [address] [place] [address] * Lactate Dehydrogenase, Pleural Fluid - Right (06/20/2025 12:03 PM EDT) LDH, Fluid 57 U/L 06/20/2025 5:36 PM EDT [facility] Pleural Fluid Structure of right pleural cavity / Unknown Non-blood Collection / Unknown 06/20/2025 12:03 PM EDT 06/20/2025 2:44 PM EDT Narrative [facility] - 06/20/2025 5:36 PM EDT [...] the following criteria are present: (1) pleural lufty-bx-fmomx protein ratio of >0.5, (2) pleural thdsw-dm-yvqbc LDH ratio of >0.6, or (3) a pleural fluid LDH activity that is >2/3 the upper limit of a normal serum LDH activity. Light's criteria may misclassify ~25% of transudates as exudates in heart failure. These can be identified by calculating a appoz-wn-scuhbxv albumin gradient (>1.2 g/dL) and/or a mnsrl-wp-kyvxb protein gradient (>3.1 g/dL). Preeti Andersen [employer] LAB BODY FLUIDS AND STO OLS ORDERABLES Final Result Performing Organization Address [facility] de Phone Number [facility] [address] [place] [address] * Total Protein, Pleural Fluid - Pleural Right (06/20/2025 12:03 PM EDT) Total Protein, Fluid 1 g/dL 06/20/2025 5:36 PM EDT [facility] Pleural Fluid Structure of right pleural cavity / Unknown Non-blood Collection / Unknown 06/20/2025 12:03 PM EDT 06/20/2025 2:44 PM EDT Narrative [facility] - 06/20/2025 5:36 PM EDT This test was developed and its performance characteristics determined by [facility]. The U.S. Food and Drug Administration has not approved or cleared this test. However, FDA clearance or approval is not currently required for clinical use. The results are not intended to be used as the sole means for clinical diagnosis or patient management decisions. Preeti Ambar Andersen [employer] LAB BODY FLUIDS AND STO OLS ORDERABLES Final Result Performing Organization Address [facility] Co de Phone Number [facility] [address] [place] [address] * Body Fluid Culture and Gram Stain - Pleural Right (06/20/2025 12:03 PM EDT) Culture No growth at day 4 2024 10:34 AM EDT [facility] Gram Stain Result No organisms seen 06/23/2025 10:34 AM EDT [facility] Gram Stain Result No polymorphonuclear leukocytes seen 06/23/2025 10:34 AM EDT [facility] Pleural Fluid Specimen from pleura obtained by thoracentesis / Unknown Non-blood Collection / Unknown 06/20/2025 12:03 PM EDT 06/20/2025 2:53 PM EDT us Preetilee Andersen [employer] LAB MICROBIOLOGY - GENE RAL ORDERABLES Final Result [facility] [address] [place] [address] * (ABNORMAL) Body Fluid Cell Count w/ Diff - Pleural Right (06/20/2025 12:03 PM EDT) Color, Body fluid Red LAB HEMATOLOGY METHOD 06/20/2025 8:20 PM EDT [facility] Appearance, Body fluid Cloudy(A) LAB HEMATOLOGY METHOD 06/20/2025 8:20 PM EDT [facility] Volume, Body fluid 5.8 cc LAB HEMATOLOGY METHOD 06/20/2025 8:20 PM EDT [facility] Fluid Container Tube 2 LAB HEMATOLOGY METHOD 06/20/2025 8:20 PM EDT [facility] Red Blood Cell Count, Body fluid 18,000 uL LAB HEMATOLOGY METHOD 06/20/2025 8:20 PM EDT [facility] Total Nucleated Cell Count, Body fluid 204 uL LAB HEMATOLOGY METHOD 06/20/2025 8:20 PM EDT [facility] Neutrophils %, Body fluid 0 % LAB HEMATOLOGY METHOD 06/20/2025 8:20 PM EDT [facility] Lymphocytes %, Body fluid 91 % LAB HEMATOLOGY METHOD 06/20/2025 8:20 PM EDT [facility] Monocytes/Macro phages %, Body fluid 6 % LAB HEMATOLOGY METHOD 06/20/2025 8:20 PM EDT [facility] Eosinophils %, Body fluid 1 % LAB HEMATOLOGY METHOD 06/20/2025 8:20 PM EDT [facility] Lining/Mesothel ial Cells %, Body fluid 2 % LAB HEMATOLOGY METHOD 06/20/2025 8:20 PM EDT [facility] Neutrophils Absolute (PMN), Body fluid 0 uL LAB HEMATOLOGY METHOD 06/20/2025 8:20 PM EDT [facility] Lymphocytes Absolute, Body fluid 186 uL LAB HEMATOLOGY METHOD 06/20/2025 8:20 PM EDT [facility] Monocytes/Macro phages Absolute, Body fluid 12 uL LAB HEMATOLOGY METHOD 06/20/2025 8:20 PM EDT [facility] Eosinophils Absolute, Body fluid 2 uL LAB HEMATOLOGY METHOD 06/20/2025 8:20 PM EDT [facility] Basophils Absolute, Body fluid 0 uL LAB HEMATOLOGY METHOD 06/20/2025 8:20 PM EDT [facility] Lining/Mesothel ial Cells Absolute, Body fluid 4 uL LAB HEMATOLOGY METHOD 06/20/2025 8:20 PM EDT [facility] Basophils %, Body fluid 0 % LAB HEMATOLOGY METHOD 06/20/2025 8:20 PM EDT [facility] Body Fluid Structure of right pleural cavity / Unknown Non-blood Collection / Unknown 06/20/2025 12:03 PM EDT 06/20/2025 2:44 PM EDT us Preeti Andersen APRN LAB BODY FLUIDS AND STOOLS ORDERABLES NO SPECIMEN TYPE/SOURCE Final Result [facility] [address] [place] [address] * Body fluid, cytospin, pathologist interpretation (06/20/2025 11:59 AM EDT) Specimen Type Body Fluid LAB HEMATOLOGY METHOD 06/21/2025 4:36 PM EDT [facility] Specimen Source, Body Fluid Peritoneal Fluid LAB HEMATOLOGY METHOD 06/21/2025 4:36 PM EDT [facility] Clinical Diagnosis, Body Fluid Ascites LAB HEMATOLOGY METHOD 06/21/2025 4:36 PM EDT [facility] Interpretation , Body Fluid No evidence of malignancy Chronic inflammatory cells Lymphocytosis Reactive mesothelial cells Moderate blood 06/21/2025 4:36 PM EDT [facility] Pathologist Signature, Body Fluid 06/21/2025 4:36 PM EDT [facility] Comment:Reviewed by: Kadie dobbs MD LAB CP ASR DISCLAIMER No 06/21/2025 4:36 PM EDT [facility] Body Fluid Peritoneal fluid / Unknown Non-blood Collection / Unknown 06/20/2025 11:59 AM EDT 06/20/2025 2:04 PM EDT us Preeti Andersen APRN LAB BODY FLUIDS AND STO OLS ORDERABLES Final Result [facility] [address] [place] [address] * Protein - Ascites (06/20/2025 11:59 AM EDT) Total Protein, Fluid 0.7 g/dL 06/20/2025 4:25 PM EDT [facility] Peritoneal Fluid Peritoneal cavity structure / Unknown Non-blood Collection / Unknown 06/20/2025 11:59 AM EDT 06/20/2025 2:42 PM EDT Narrative [facility] - 06/20/2025 4:25 PM EDT This test was developed and its performance characteristics determined by [facility]. The U.S. Food and Drug Administration has not approved or cleared this test. However, FDA clearance or approval is not currently required for clinical use. The results are not intended to be used as the sole means for clinical diagnosis or patient management decisions. Preeti Andersen APRN LAB BODY FLUIDS AND STO OLS ORDERABLES Final Result [facility] [address] [place] [address] * Albumin - Ascites (06/20/2025 11:59 AM EDT) Albumin, Peritoneal Fluid 0.4 g/dL 06/20/2025 4:25 PM EDT [facility] Peritoneal Fluid Peritoneal cavity structure / Unknown Non-blood Collection / Unknown 06/20/2025 11:59 AM EDT 06/20/2025 2:42 PM EDT Narrative [facility] - 06/20/2025 4:25 PM EDT REPORTING RESULTS Reference Values: No established reference interval. Results should be interpreted in comparison to the concentration in blood and in conjunction with the clinical context. This test was developed and its performance characteristics determined by [facility]. The U.S. Food and Drug Administration has not approved or cleared this test; however, FDA clearance or approval is not currently required for clinical use. The results are not intended to be used as the sole means for clinical diagnosis or patient management decisions. us Preeti S Andersen [employer] LAB BODY FLUIDS AND STO OLS ORDERABLES Final Result [facility] [address] [place] [address] * Body Fluid Cell Count With Diff - Ascites (06/20/2025 11:59 AM EDT) Color, Body fluid [place] LAB HEMATOLOGY METHOD 06/20/2025 8:13 PM EDT [facility] Comment:Previously prelim ve rified as Red on 06/20/2025 at 1944 EDT. Appearance, Body fluid Clear LAB HEMATOLOGY METHOD 06/20/2025 8:13 PM EDT [facility] Comment:Previously prelim ve rified as Cloudy on 06/20/2025 at 1944 EDT. Volume, Body fluid 15.0 cc LAB HEMATOLOGY METHOD 06/20/2025 8:13 PM EDT [facility] Comment:Previously prelim ve rified as 5.8 cc on 06/20/2025 at 1944 EDT. Fluid Container Specimen received in miscellaneous container LAB HEMATOLOGY METHOD 06/20/2025 8:13 PM EDT [facility] Comment:Corrected result: Pr eviously reported as Tube 2 on 06/20/2025 at 1944 EDT. Red Blood Cell Count, Body fluid 13,000 uL LAB HEMATOLOGY METHOD 06/20/2025 8:13 PM EDT [facility] Total Nucleated Cell Count, Body fluid 164 uL LAB HEMATOLOGY METHOD 06/20/2025 8:13 PM EDT [facility] Neutrophils %, Body fluid 0 % LAB HEMATOLOGY METHOD 06/20/2025 8:13 PM EDT [facility] Lymphocytes %, Body fluid 91 % LAB HEMATOLOGY METHOD 06/20/2025 8:13 PM EDT [facility] Monocytes/Macr ophages %, Body fluid 9 % LAB HEMATOLOGY METHOD 06/20/2025 8:13 PM EDT [facility] Eosinophils %, Body fluid 0 % LAB HEMATOLOGY METHOD 06/20/2025 8:13 PM EDT [facility] Lining/Mesothe lial Cells %, Body fluid 0 % LAB HEMATOLOGY METHOD 06/20/2025 8:13 PM EDT [facility] Neutrophils Absolute (PMN), Body fluid 0 uL LAB HEMATOLOGY METHOD 06/20/2025 8:13 PM EDT [facility] Lymphocytes Absolute, Body fluid 149 uL LAB HEMATOLOGY METHOD 06/20/2025 8:13 PM EDT [facility] Monocytes/Macr ophages Absolute, Body fluid 15 uL LAB HEMATOLOGY METHOD 06/20/2025 8:13 PM EDT [facility] Eosinophils Absolute, Body fluid 0 uL LAB HEMATOLOGY METHOD 06/20/2025 8:13 PM EDT [facility] Basophils Absolute, Body fluid 0 uL LAB HEMATOLOGY METHOD 06/20/2025 8:13 PM EDT [facility] Lining/Mesothe lial Cells Absolute, Body fluid 0 uL LAB HEMATOLOGY METHOD 06/20/2025 8:13 PM EDT [facility] Basophils %, Body fluid 0 % LAB HEMATOLOGY METHOD 06/20/2025 8:13 PM EDT [facility] Body Fluid Peritoneal fluid / Unknown Non-blood Collection / Unknown 06/20/2025 11:59 AM EDT 06/20/2025 2:04 PM EDT Preeti Andersen APRN LAB BODY FLUIDS AND STOOLS ORDERABLES NO SPECIMEN TYPE/SOURCE Final Result [facility] [address] [place] [address] documented in this encounter Visit Diagnoses Diagnosis [...] documented as of this encounter Care Teams [employer] Wiring Technician Relationship Specialty Start Date End Date Alvarez Zimmer MD [address] [place] [address] PCP - General Family Medicine 12/07/24 Lea Fernando [address] [facility] [address] [place] [id number] Production Line Worker Endocrinology 08/29/24 Rachel Ray, [employer] [address] [place] [address] Nurse Practitioner Gastroenterology 09/24/24 Tamera Isabel LPN VALUE-BASED TRANSFORMATION PROGRAM Licensed Practical Nurse 05/29/25 documented as of this encounter
--- OUTSIDE RECORDS SUMMARY | 2025-06-20 13:04 | XMS_ITS | Encounter Summary ---
Author Organization Healthcare Address [address] [place] [address] Care Team Providers Care Field Contact Person Name Role Phone Lea Fernando Unavailable [phone] Rachel Ray PULLBOAT ENGINEER Unavailable [phone] Alvarez Zimmer MD Primary Care Provider [phone] Tamera Isabel CHUCK TENDER Unavailable Unavailabl e Encounter Details Date Type Department Care Team (Latest Contact Info) Description 06/20/2025 1:04 PM EDT - 06/20/2025 11:59 PM EDT Hospital Encounter [facility] Radiology [address] [place] [address] Discharge Disposition: Home or Self Care Social [...] week 01/10/2025 How often do you attend [facility] or yazidism services? Patient unable to answer 01/10/2025 Do you belong to any clubs o r organizations such as rastafari groups, unions, fraternal or athletic groups, or [...] do you attend chur or yazidism services? Never 05/29/2025 Do you belong to any clubs o r organizations such as rastafari groups, unions, fraternal or athletic groups, or [...] more drinks on one occasion? Never 06/05/2025 [facility]at [facility] - Occupational [...] drink first t kennedy in the morning (EYE-MOLDED CANDLES WICKER) to steady your nerves or to get rid of a hangover? 0 10/22/2024 CAGE Questionnaire Score 0 024 Utilities Answer Date Recorded In the past 12 months has th e [employer], gas, oil, or water company threatened to [...] MINI PEN NEEDLES 31G X 5 MM [facility] 04/22/2025 5 B-D ULTRAFINE III SHORT PEN 31G X 8 MM [facility] 01/14/2025 5 Blood Glucose Monitoring Suppl (Blood [...] 04/17/2025 5 ergocalciferol (Vitamin D-2) 1.25 MG (11825 UT) capsuleIndications: Vitamin D deficiency Take 1 [...] Appointment [facility] Interventional Radiology [address] [place] [address] 08/01/2025 11:00 AM EDT Appointment [facility] Interventional Radiology [address] [place] [address] 08/08/2025 11:15 AM EDT Appointment [facility] Radiology [address] [place] [address] 08/08/2025 12:15 PM EDT Appointment [facility]iology [address] [place] [address] 2025 10:00 AM EDT Appointment [facility]iology [address] [place] [address] 2025 11:00 AM EDT Appointment [facility] Inter[facility] Radiology [address] [place] [address] 08/20/2025 9:30 AM EDT Clinical Support [facility] [place] [address] [place] [address] 08/20/2025 10:30 AM EDT Social Work [facility] [place] [address] [place] [address] [place] [address] 08/20/2025 11:00 AM EDT Office Visit [facility] [address] [place] [address] Jude Duque MD [address] [place] [address] documented as of this encounter Procedures Procedure [...] documented as of this encounter Care Teams Field Contact Person Relationship Specialty Start Date End Date Alvarez Zimmer MD [address] [place] [address] PCP - General Family Medicine 12/07/24 Lea Fernando [address] [place] [address] Program Coordinator [facility] Endocrinology 08/29/24 Rachel Ray, PULLBOAT ENGINEER [address] [place] [address] Nurse Practitioner Gastroenterology 09/24/24 Tamera Isabel LPN VALUE-BASED TRANSFORMATION PROGRAM Licensed Practical Nurse 05/29/25 documented as of this encounter
--- OUTSIDE RECORDS SUMMARY | 2025-06-25 13:00 | XMS_ITS | Encounter Summary ---
Author Organization Healthcare Address [address] [place] [address] Care Team Providers Care Cook Chief Name Role Phone Lea Fernando Unavailable [phone] Rachel Ray POULTRY GRADER Unavailable [phone] Alvarez Zimmer MD Primary Care Provider [phone] Tamera Isabel TINNING MACHINE SET UP OPERATOR Unavailable Unavailabl e Reason for Visit * Reason Comments Consult * Auth/Cert (Routine) Specialty Diagnoses / Procedures Referred By Contac t Referred To Contact Diagnoses CARLOTTA (acute kidney injury) ([facility]) Chilo Loyola MD [address] [address] Phone: tel: fax: P[facility] S Inpatient [address] [place] [address] Phone: tel: Referral ID Status Reason Start Date Expiration Date Visits Re quested Visits Authorized [id number] 1 1 Encounter Details Date Type Department Care Team (Late st Contact Info) Description 06/25/2025 1:00 PM EDT Office Visit [facility] Nephrology, Bone [facility] Mineral Metabolism [address], [address] [place] [address] Arnulfo Joy MD [address] [place] [address] Cirrhosis of liver with ascites, unspecified hepatic [...] often do you attend [facility] or [facility] services? Patient unable to [...] more drinks on one occasion? Never 06/25/2025 [facility] - Occupational Stress Questionnaire Answer [...] any time in the past 12 m [facility], were you homeless or living in a [place] [facility] [place] (including now)? No 06/26/2025 CAGE ASSESSMENT Answer [...] drink first t kennedy in the morning (EYE-LUNCH WAGON OPERATOR) to steady your nerves or to get rid of a hangover? 0 06/25/2025 CAGE Questionnaire Score 0 025 Utilities Answer Date Recorded In the past 12 months has th e [employer], gas, oil, or water company threatened to [...] [place] [phone], Criselda at [facility], PT left with [facility] * Progress Notes - Arnulfo [...] 09/20/2019 Added automatically from request for surgery [id number] Coronary artery disease Depression 1995 Diabetes mellitus [...] BLADDER SURGERY; N/A Comment: Bladder surgery from [employer] 2011: BREAST BIOPSY 2010: BREAST SURGERY No date: BUNIONECTOMY; Right 2016: CATARACT EXTRACTION; Bilateral 1979: CHOLECYSTECTOMY No date: ESOPHAGOGASTRODUODENOSCOPY No date: HYSTERECTOMY; N/A Comment: Hysterectomy from [employer] No date: KNEE SURGERY; Bilateral No date: ORAL SURGERY; N/A Comment: Oral surgery from [employer] 2015: OTHER SURGICAL HISTORY No date: ROOT CANAL No date: WISDOM TOOTH EXTRACTION Current Medications[2] as of 06/25/2025 1:52 PM Current Outpatient Medications: Abaloparatide (Tymlos) 3120 MCG/1.56ML solution pen-injector, Inject 80 mcg under the skin daily., Disp: 1.56 mL, Rfl: 2 B-D UF III MINI PEN NEEDLES 31G X 5 MM [facility], , Disp: , Rfl: Blood Glucose Monitoring [...] Rfl: 1 ergocalciferol (Vitamin D-2) 1.25 MG (90530 UT) capsule, Take 1 capsule by mouth [...] setting of end-stage liver disease [facility]. She has worsening creatinine as an [...] asked the patient to present to the [facility] emergency department for evaluation of kidney function, [...] her case with care providers at the [facility] and they are anticipating her arrival. - [...] in urine Cataract Chronic kidney disease Cirrhosis ([facility]) Colon cancer screening 09/20/2019 Added automatically from request for surgery [id number] Coronary artery disease Depression 1996 Diabetes mellitus type 2 in obese 04/22/2015 Diabetic nephropathy ([facility]/HCC) Dry mouth GERD (gastroesophageal reflux disease) Headache [...] 5 MM [facility], , Disp: , Rfl: Blood Glucose Monitoring [...] Rfl: 1 ergocalciferol (Vitamin D-2) 1.25 MG (80497 UT) capsule, Take 1 capsule by mouth [...] Appointment [facility] Inter[facility] Radiology [address] [place] [address] 08/01/2025 11:00 AM EDT Appointment [facility] [address] [place] [address] 08/08/2025 11:15 AM EDT Appointment [facility] [address] [place] [address] 08/08/2025 12:15 PM EDT Appointment [facility] [address] [place] [address] 2025 10:00 AM EDT Appointment [facility] [address] [place] [address] 2025 11:00 AM EDT Appointment [facility] Inter[facility] Radiology [address] [place] [address] 08/20/2025 9:30 AM EDT Clinical Support [facility] [address] [place] [address] 08/20/2025 10:30 AM EDT Social Work [facility] [address] [place] [address] [place] [address] 08/20/2025 11:00 AM EDT Office Visit [facility] [address] [place] [address] Jude Duque MD [address] [place] [address] documented as of this encounter Visit Diagnoses Diagnosis Cirrhosis of liver with ascites, unspecified hepatic cirrhosis type (CMS/HCC)- Primary CARLOTTA (acute kidney injury) (CMS/HCC) Chronic kidney disease, stage 3b (CMS/HCC) Type 2 diabetes mellitus with hyperglycemia, with long-term current use of insulin (CMS/HCC) documented in this encounter Additional Health Concerns Assessment Noted Time PHQ-9 Depression Total Score: 6 06/11/20 10:59 AM EDT A fall risk assessment has been complete d for the patient 06/25/2025 12:59 PM EDT A Body Mass Index follow-up plan has been documented for the patient 07/09/2025 10:39 AM EDT documented as of this encounter Care Teams Cook Chief Relationship Specialty Start Date End Date Alvarez Zimmer MD [address] [place] [address] PCP - General Family Medicine 12/07/24 Lea Fernando [address] [place] [address] Turbine Inspector Endocrinology 08/29/24 Rachel Ray APRN [address] [facility] [address] [place] [address] Nurse Practitioner Gastroenterology 09/24/24 Tamera Isabel LPN VALUE-BASED TRANSFORMATION PROGRAM Licensed Practical Nurse 05/29/25 documented as of this encounter
--- OUTSIDE RECORDS SUMMARY | 2025-06-25 14:14 | XMS_ITS | Encounter Summary ---
Author Organization [facility] Address [address] [place] [address] Care Team Providers Care Pumper Gauger Apprentice Name Role Phone Lea Fernando Unavailable [phone] Rachel Ray BRAND SPECIALIST Unavailable [phone] Alvarez Ordaz MD Primary Care Provider [phone] Tamera Isabel CREDIT FRONT OFFICE DEVELOPER Unavailable Unavailabl Alina Jennings RN Unavailable Unavailab le Reason for Referral * Consultation (Routine) - Authorized Specialty Diagnoses / Procedures Referred By Contac t Referred To Contact Family Medicine Diagnoses CARLOTTA (acute kidney injury) (CMS/HCC) Kayla Reed MD [address] [place] [id number] Phone: tel: fax: Referral ID Status Reason Start Date Expiration Date Visits Requested Visits Authorized [id number] Authorized Specialty Services Required 07/09/2025 01/08/2027 1 1 * Imaging (Routine) - Closed Specialty Diagnoses / Procedures Referred By Contac t Referred To Contact Radiology Diagnoses Other ascites Alcoholic cirrhosis of liver with ascites (CMS/HCC) Procedures US Guided Abdominal Paracentesis Marianna Gordon, BRAND SPECIALIST [address] [place] [address] Phone: tel: fax: Referral ID Status Reason Start Date Expiration Date Visits Re quested Visits Authorized [id number] Closed 06/14/2025 12/14/2026 1 1 * Imaging (Routine) - Closed Specialty Diagnoses / Procedures Referred By Eder zhu Referred To Contact Radiology Diagnoses Pleural effusion Shortness of breath Procedures US Guided Thoracentesis Marianna Gordon APRN [address] [place] [address] Phone: tel: fax: Referral ID Status Reason Start Date Expiration Date Visits Re quested Visits Authorized [id number] Closed 06/14/2025 12/14/2026 1 1 Reason for Visit * Reason Comments Abnormal Lab Creatinine mentioned by PT. * Auth/Cert (Routine) Specialty Diagnoses / Procedures Referred By Eder zhu Referred To Contact Diagnoses CARLOTTA (acute kidney injury) ([facility]) Chilo Morales MD [address] [address] Phone: tel: fax: [facility] Inpatient [address] [place] [address] Phone: tel: Referral ID Status Reason Start Date Expiration Date Visits Re quested Visits Authorized [id number] 1 1 Encounter Details Date Type Department Care Team (Late st Contact Info) Description 06/25/2025 2:14 PM EDT - 07/09/2025 1:19 PM EDT Hospital Encounter [facility] [address] [place] [address] Kadie Mauro MD [address] [place] [address] Chilo Morales MD [address] [facility] [address] [place] [address] Fabiana Cunningham MD [address] [facility] [address] [place] [address] Kayla Reed MD [address] [facility] [address] [place] [address] CARLOTTA (acute kidney injury) (CMS/HCC) (Primary Dx); Acute kidney injury superimposed on stage 3b chronic kidney disease (CMS/HCC); Chronic kidney disease, stage 3b (CMS/HCC); Cirrhosis of liver with ascites, unspecified hepatic cirrhosis type (CMS/HCC); Hx of spontaneous bacterial peritonitis; Physical debility; Pancytopenia; Self-care deficit; Pleural effusion; Shortness of breath; Other ascites; Alcoholic cirrhosis of liver with ascites (CMS/HCC) [...] do you attend [facility] or uatsdin services? Patient unable [...] more drinks on one occasion? Never 06/25/2025 [facility] [...] drink first t kennedy in the morning (EYE-LINE ASSIGNER) to steady your nerves or to get [...] Sign Reading Time Taken Comments Blood Pressure 120/67 07/09/2025 10:54 AM EDT Pulse 71 07/09/2025 10:54 AM EDT Temperature 36.7 C (98 F) 07/09/2025 10:54 AM EDT Respiratory Rate 16 07/07/2025 7:44 AM EDT Oxygen Saturation 98% 07/09/2025 10: 54 AM EDT Inhaled Oxygen Concentration - - Weight 80.6 kg (177 lb 11.1 oz) 07/09/2025 6:00 AM EDT Height 165.1 cm (5' 5 ) 06/26/2025 10:0 0 AM EDT Body Mass Index 29.57 06/26/2025 10:00 AM EDT documented in this encounter Functional [...] Date of Assessment Author No Risk Indicated 07/18/2025 9:58 AM EDT Stu Rodriguez * Question Answer Date of Assessment Author 1. Wish to be (Past 1 Month) No 025 9:58 AM EDT Stu Samayoa 2. Non-Specific Active Suici liz Thoughts (Past 1 Month) No 07/18/2025 9:58 AM EDT Jerri Samayoa 6. Suicidal Behavior (Lifetime) No 9:58 AM EDT Stu Samayoa documented as of this encounter Discharge Instructions * Discharge Instructions* Juliane Rodriguez - 07/09/2025 11:42 AM EDT documented in this encounter Medications at Time of Discharge Abaloparatide (Tymlos) 3120 MCG/1.56ML solution pen-injector Inject 80 mcg under the skin daily. 1.56 mL 2 04/22/2025 benzonatate (Tessalon) 100 MG capsule Take 1 capsule by mouth 3 times a day as needed for cough. Do not crush or chew. 07/09/2025 bisacodyl (Dulcolax) 10 MG suppository Insert 1 suppository into the rectum daily as needed for constipation. 07/09/2025 calcitriol (Rocaltrol) 0.25 MCG capsuleIndication s:Chronic kidney disease, stage 3b (CMS/HCC) Take 1 capsule by mouth daily. 30 capsule 06/10/2025 calcium carbonate EX (Tums E-X) 750 MG chewable tablet Chew 1 tablet (750 mg) 1 (one) time each day. 12/05/2024 capsaicin (Zostrix-HP) 0.075 % topical cream Apply 1 Application topically daily as needed (Leg and foot cramps). carboxymethylcell ulose PF (Refresh Plus) 0.5 % ophthalmic solution Administer 1 drop into both eyes as needed for dry eyes. 07/09/2025 cetirizine (ZyrTEC) 10 MG tabletIndications :ETD (Eustachian tube dysfunction), bilateral Take 1 tablet by mouth daily. 30 tablet 07/09/2025 cholecalciferol (Vitamin D-3) 25 MCG (1000 UT) tablet Take 1 tablet by mouth daily. 90 tablet 2 04/01/2025 ciprofloxacin (Cipro) 500 MG tabletIndications :Altered mental status, unspecified altered mental status type Take 1 tablet by mouth daily. 90 tablet 1 03/01/2025 ergocalciferol (Vitamin D-2) 1.25 MG (26273 UT) capsuleIndication s:Vitamin D deficiency Take 1 capsule by mouth 1 time per week. 4 capsule 06/27/2025 hydrOXYzine HCl (Atarax) 25 MG tablet Take 0.5 tablets by mouth at night as needed for itching. 07/09/2025 insulin glargine-yfgn 100 UNIT/ML injection vial Inject 24 Units under the skin daily. 07/09/2025 insulin lispro (Admelog) 100 UNIT/ML injection Inject 0-10 Units under the skin 3 times a day with meals. See After Visit Summary for instructions on how to take your insulin. 07/09/2025 insulin lispro (Admelog) 100 UNIT/ML injection Inject 0-3 Units under the skin 2 times a night. See After Visit Summary for instructions on how to take your insulin. 07/09/2025 lactulose (Chronulac) 10 GM/15ML solution Take 30 mL by mouth 3 times a day. 2700 mL 11 05/07/2025 Magnesium Oxide, Laxative, 500 MG tabletIndications :Hypomagnesemia Take 1 tablet by mouth daily. 90 tablet 3 04/01/2025 melatonin tablet Take 1 tablet by mouth at night as needed for sleep. 07/09/2025 midodrine (Proamatine) 5 MG tablet Take 3 tablets by mouth 3 times a day. 07/09/2025 Multiple Vitamins-Minerals (COMPLETE WOMENS PO) Take 1 tablet by mouth in the morning. polyethylene glycol (Miralax) 17 g packet Take 17 g by mouth 2 times a day. 07/09/2025 prochlorperazine (Compazine) 5 MG tablet Take 1 tablet by mouth every 8 hours as needed for nausea or vomiting. 60 tablet 2 07/09/2025 rifAXIMin (Xifaxan) 550 MG tabletIndications :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) (CMS/HCC) Take 1 tablet by mouth 2 times a day. 60 tablet 11 06/03/2025 senna (Senokot) 8.6 MG tablet Take 1 tablet by mouth nightly. 07/09/2025 Zegalogue 0.6 MG/0.6ML solution auto-injectorIndi cations:Type 2 [...] capsule before bedtime. 60 capsule 2 03/01/2025 lidocaine (Lidoderm) 5 % patch Apply 1 patch topically 1 (one) time each day at the same time over 12 hours for 6 doses. Remove & discard patch within 12 hours or as directed by MD. 07/09/2025 5 documented as of this encounter Miscellaneous Notes * Progress Notes - Venessa Brown - 07/09/2025 1:19 PM EDT Case Management Discharge Note Monika Ordaz 64 y.o. female CSN: [id number] Admission: 06/25/2025 2:14 PM Primary Problem: Cirrhosis of liver with ascites (CMS/HCC) Primary Appliance Installer: Primary Caregiver: Self Assistance Available at Discharge: Current Outpatient/Agency/Support Group: DME, [facility] Availability of Care Givers (#Hours): 24 hours Family/Appliance Installer(s) Willingness Assessed to care for patient at home: Yes Family/Appliance Installer(s) Readiness Assessed to care for patient at home: Yes Housing Circumstances-Z Codes: Housing Circumstances (select all that apply): Low Income (101-300% Federal Poverty Guidlines) - Z596 Discharge Facility/Level of Care Needs: Discharge Facility/Level of Care Needs: 3-[facility] Facility Patient/Family Anticipated Services at Transition: Patient/Family Anticipated Services at Transition: [facility] DME/Equipment Needed after Discharge: Equipment Currently Used at Home: walker, rollator, Cpap Medicare Documentation: Medicare Second Notice?: Yes Date Second Notice Completed: 07/09/25 Time Second Notice Completed: 841 Medicare Second Notice Recieved By: patient Follow-up: Alvarez Ordaz MD [address] [facility] [place] [facility] [place] [address] Discharge Transportation: Transportation Anticipated: family or friend will provide Transportation Home at Discharge: Medical Transport ([facility] arranged) Has discharge transport been arranged?: Yes What day is the transport expected?: 07/09/25 What time is the transport expected?: 1300 Follow Up Transport: Transportation Needed to Follow up Appoinments: Family/Friend will Provide Additional Comments: Per team, pt is medically ready for discharge. Pt was discharged to [facility] in [place] for SNF/LTC. Pts was transported to the facility by [facility]. SW sent the discharge summary and bedside nurse called report prior to discharge. Venessa Brown * Care Plan - Mariam Gonzalez RN - 07/09/2025 10:08 AM EDT Problem: Fall Injury Risk Goal: Absence of Fall and Fall-Related Injury Outcome: Ongoing, Progressing Intervention: Identify and Manage Contributors Flowsheets (Taken 07/09/2025 0800) Medication Review/Management: medications reviewed Intervention: Promote Injury-Free Environment Flowsheets (Taken 07/09/2025 0800) Safety Promotion/Fall Prevention: activity supervised Problem: Skin Injury Risk Increased Goal: Skin Health and Integrity Outcome: Ongoing, Progressing Intervention: Optimize Skin Protection Flowsheets (Taken 07/09/2025 0800) Activity Management: activity adjusted per tolerance Intervention: Promote and Optimize Oral Intake Flowsheets (Taken 07/09/2025 0800) Oral Nutrition Promotion: rest periods promoted Problem: Adult Inpatient Plan of Care Goal: Plan of Care Review Outcome: Ongoing, Progressing Flowsheets Taken 07/09/2025 1007 Progress: no change Plan of Care Reviewed With: patient Taken 07/07/2025 1407 Outcome Evaluation: pt will partcipate in plan of care during this shift. Goal: Patient-Specific Goal (Individualized) Outcome: Ongoing, Progressing Flowsheets (Taken 07/09/2025799) Patient/Family-Specific Goals (Include Timeframe): pt will have reduced anxiety during this shift. Individualized Care Needs: coping techniques Anxieties, Fears or Concerns: anxiety about LTC Goal: Absence of Hospital-Acquired Illness or Injury Outcome: Ongoing, Progressing Intervention: Identify and Manage Fall Risk Flowsheets (Taken 07/09/2025799) Safety Promotion/Fall Prevention: activity supervised Intervention: Prevent Skin Injury Flowsheets (Taken 07/09/2025799) Body Position: weight shifting Intervention: Prevent and Manage VTE (Venous Thromboembolism) Risk Flowsheets (Taken 07/09/2025799) VTE Prevention/Management: medication Intervention: Prevent Infection Flowsheets (Taken 07/09/2025799) Infection Prevention: hand hygiene promoted Goal: Optimal Comfort and Wellbeing Outcome: Ongoing, Progressing Intervention: Monitor Pain and Promote Comfort Flowsheets (Taken 07/09/2025799) Pain Management Interventions: medication (see MAR) Intervention: Provide Person-Centered Care Flowsheets (Taken 07/09/2025799) Trust Relationship/Rapport: care explained Problem: Acute Kidney Injury/Impairment Goal: Fluid and Electrolyte Balance Outcome: Ongoing, Progressing Intervention: Monitor and Manage Fluid and Electrolyte Balance Flowsheets (Taken 07/09/2025 1007) Fluid/Electrolyte Management: fluids provided Goal: Improved Oral Intake Outcome: Ongoing, Progressing Intervention: Promote and Optimize Oral Intake Flowsheets (Taken 07/09/2025799) Oral Nutrition Promotion: rest periods promoted Goal: Effective Renal Function Outcome: Ongoing, Progressing Intervention: Monitor and Support Renal Function Flowsheets (Taken 07/09/2025799) Medication Review/Management: medications reviewed Problem: Diabetes Goal: Optimal Coping Outcome: Ongoing, Progressing Intervention: Support Wellbeing and Self-Management Success Flowsheets (Taken 07/09/2025799) Family/Support System Care: self-care encouraged Goal: Optimal Functional Ability Outcome: Ongoing, Progressing Intervention: Optimize Functional Ability Flowsheets (Taken 07/09/2025799) Activity Assistance Provided: assistance, stand-by Goal: Blood Glucose Level Within Target Range Outcome: Ongoing, Progressing Intervention: Optimize Glycemic Control Flowsheets (Taken 07/09/2025 1007) Hyperglycemia Management: blood glucose monitored Goal: Minimize Hypoglycemia Risk Outcome: Ongoing, Progressing Intervention: Minimize and Manage Hypoglycemia Flowsheets (Taken 07/09/2025 1007) Hypoglycemia Management: blood glucose monitored Problem: Self-Care Deficit Goal: Improved Ability to Complete Activities of Daily Living Outcome: Ongoing, Progressing Intervention: Promote Activity and Functional [place] Flowsheets (Taken 07/09/2025 0800) Activity Assistance Provided: assistance, stand-by * Consults - Yudith Coates RD - 07/09/2025 9:38 AM EDT Adult Nutrition Evaluation Note Monika Ordaz 64 y.o. female CSN: [id number] Room/Bed 723/723A Nutrition evaluation type: follow-up Reason for evaluation: provider consult Hospital course: 64y/o female admitted 06/25 for CARLOTTA on CKD and inability to care for herself. S/p paracentesis and thoracentesis on 07/04. Past medical/ surgical history: Past Medical History[1] Surgical History[2] Social history: None, no uatsdin needs Additional comments: 07/09: Pt seen at bedside. Reported tolerating PO as best as she can given limited appetite r/t cirrhosis with ascites. Pt has tried Boost supplements but does not enjoy them as she does not like the mouthfeel of the original supplements nor does she enjoy the flavors of Boost Breeze. Pt voiced some [facility]. Encouraged pt to eat in the dining room with otherresidents, ask about food items that are offered so she may find items she likes and tolerates, anddiscussed that the prison may have supplements like Magic Cups that the pt may find more favorable. Diet Education Provided: Yes (07/03: diet edu for CKD, cirrhosis, DM) Vitals and Basic Assessment: BP: 103/61 Temp: 36.8 ??C (98.2 ??F) Oxygen Therapy: None (Room air) O2 Delivery Method: CPAP/Bi-PAP mask Shamir Coma Scale Score: 15 Edd Scale Score: 19 Most Recent BM Date: 07/08/25 GI Symptoms: Loss of appetite Edema: Generalized +paracentesis/thoracentesis Skin: intact Allergies: NKFA Medications: Current Scheduled Medications[3] Current Continuous Medications[4] Current PRN Medications[5] Medications Ordered Prior to Encounter[6] Labs: Lab Results Component Value Date WBC 3.24 (L) 07/09/2025 HGB 8.4 (L) 07/09/2025 HCT 25.0 (L) 07/09/2025 MCV 94 07/09/2025 PLT 51 (L) 07/09/2025 Lab Results Component Value Date GLUCOSE 105 (H) 07/09/2025 CALCIUM 8.5 (L) 07/09/2025 NA 136 07/09/2025 K 4.1 07/09/2025 CO2 18 (L) 07/09/2025 CL 108 (H) 07/09/2025 BUN 22 07/09/2025 CREATININE 1.22 (H) 07/09/2025 PHOS 3.6 07/09/2025 MG 1.9 07/09/2025 HGBA1C 7.3 (H) 05/23/2025 EGFR 50.3 07/09/2025 -- POCT glucose of 81 - 245mg/dL (06/25 - 06/26); 105-257 mg/dL (06/27-07/03); 86-276 mg/dL (07/04-07/09) Lab Results Component Value Date ALT 19 07/09/2025 AST 39 (H) 07/09/2025 ALKPHOS 170 (H) 07/09/2025 BILITOT 2.7 (H) 07/09/2025 Anthropometrics: Height: 165.1 cm (5' 5 ) Weight: 80.6 kg (177 lb 11.1 oz) BMI (Calculated): 29.57 Weight Evaluation: Overweight (BMI 25-29.9) [place] Body Weight (kg): 56.8 Percent [place] Body Weight: 142 Adjusted Body Weight (kg): 62.8 Wt Readings from Last 10 Encounters: 07/09/25 80.6 kg (177 lb 11.1 oz) 06/25/25 79.9 kg (176 lb 2.4 oz) 06/20/25 83.8 kg (184 lb 11.9 oz) 06/13/25 85.7 kg (188 lb 15 oz) 06/11/25 82 kg (180 lb 12.4 oz) 06/06/25 82.7 kg (182 lb 5.1 oz) 06/05/25 80.6 kg (177 lb 11.1 oz) 05/31/25 87.9 kg (193 lb 12.6 oz) 05/30/25 82.5 kg (181 lb 14.1 oz) 05/23/25 86.9 kg (191 lb 9.3 oz) Estimated Needs: Kcal/ K-35 Kcal Provided: 4667-9014 Kcal Needs Based On: Adjusted weight (63 kg) Gm Protein/ Kg : 1.2-1.5 Protein Provided: 76-95 Protein Needs Based On: Adjusted weight (63 kg) Fluid Provided: 1 ml/kcal or per MD team Metabolic Cart Study Results: Current Nutrition Intake: Diet Supplements: Boost Breeze Diet Order: Adult Diet Diet Texture: Regular Adult Carbohydrate Restriction: Consistent CHO 2 (5238-1407 Deniz, 80 g/meal) Adult Sodium Restriction: 2,000 mg Na Fat Restriction: (-) Electrolyte Restriction: (-) Percent Meals Eaten (%): 54% avg x 13 meals (07/05-07/09) Nutrition Focused Physical Exam: Physical exam performed on (date): 06/26 Temples (muscles): None Clavicle (muscle): Mild Shoulder (muscle): Mild Thigh (muscle): Mild Calf (muscle): Mild Orbital (fat): None Triceps (fat): Mild Assessment of Malnutrition: Malnutrition Identified: No Nutrition Problem: Inadequate energy intake related to self-care deficit as evidenced by inability to perform ADL, pt reported that her appetite is hit or miss , 66% avg x 2 meals (06/26) -> 68% avg x 15 meals (06/27-07/02), reported burn out with limited food options -> 54% avg PO x 13 meals (07/05-07/09). Status of Nutrition Diagnosis: Ongoing Nutrition Interventions and Recommendations: Continue Regular/CC2/2g Na+ diet as tolerated. Snacks TID to facilitate small, frequent meals. Kitchen unable to accommodate high calorie/protein restriction with other diet restrictions (i.e., renal, consistent carb, etc.). Rec Nephrovite supplementation daily. Agree with calcium and vitamin D supplementation - rec taking separately from Nephrovite. Insulin regimen per MD Team. Nursing: Please document all PO intakes in I/Os in Flowsheets. Nutrition Monitoring and Goals: - Will monitor PO intake, weight status, lab results, GI tolerance, and skin integrity - Pt will tolerate >75% avg of meal intakes (Not met 07/09, continue) - Blood Glucose <200mg/dl during admission (Not met 07/09, continue) Acuity Level: 10 day x1 Yudith Coates, RD, LD, MS [1] Past Medical History: Diagnosis Date ADHD (attention deficit hyperactivity disorder) Allergic Anxiety disorder, unspecified Anxiety Bleeding gums Blood in urine Cataract Chronic kidney disease Cirrhosis ([facility]) Colon cancer screening 09/20/2019 Added automatically from request for surgery [id number] Coronary artery disease Depression 1995 Diabetes mellitus type 2 in obese 04/22/2015 Diabetic nephropathy ([facility]) Dry mouth Epigastric pain 08/02/2019 ETD (eustachian tube dysfunction) 07/13/2018 GERD (gastroesophageal reflux disease) Headache Heart murmur Hepatic encephalopathy ([facility]/HCC) 10/14/2024 HL (hearing loss) Hypoparathyroidism Inflammatory bowel disease Irritable bowel syndrome Jaw pain Obesity Osteoporosis Other ascites 01/22/2025 Peptic ulceration Personal history of other diseases [...] 1979 BLADDER SURGERY N/A Bladder surgery from [facility] BREAST BIOPSY 2011 BREAST SURGERY 2010 BUNIONECTOMY Right CATARACT EXTRACTION Bilateral 2016 CHOLECYSTECTOMY 1979 ESOPHAGOGASTRODUODENOSCOPY HYSTERECTOMY N/A Hysterectomy from [facility] KNEE SURGERY Bilateral ORAL SURGERY N/A Oral surgery from [facility] OTHER SURGICAL HISTORY 2014 ROOT CANAL WISDOM TOOTH EXTRACTION [3] calcitriol, 0.25 mcg, Oral, Daily calcium carbonate, 750 mg, Oral, Daily cetirizine, 10 mg, Oral, Daily cholecalciferol, 1,000 Units, Oral, Daily ciprofloxacin, 500 mg, Oral, Daily heparin (porcine), 5,000 Units, Subcutaneous, q12h hydrOXYzine HCl, 12.5 mg, Oral, Once insulin glargine-yfgn, 24 Units, Subcutaneous, Daily insulin lispro, 0-10 Units, Subcutaneous, TID with meals insulin lispro, 0-3 Units, Subcutaneous, Twice at night lactulose, 30 g, Oral, TID lidocaine, 1 patch, Apply externally, q24h magnesium oxide, 400 mg, Oral, Daily midodrine, 15 mg, Oral, TID polyethylene glycol, 17 g, Oral, BID rifAXIMin, 550 mg, Oral, BID senna, 8.6 mg, Oral, Nightly sodium chloride, 10 mL, Intravenous, q12h sodium chloride, 10 mL, Intravenous, q12h sodium chloride, 10 mL, Intravenous, q12h [4] [5] PRN medications: albumin human, albumin human, benzonatate, bisacodyl, capsaicin, carboxymethylcellulose PF, glucose OR dextrose 10 % OR dextrose 10 % OR glucagon (human recombinant),melatonin, prochlorperazine, [COMPLETED] Insert peripheral IV AND [COMPLETED] Saline lock IV AND sodium chloride AND sodium chloride, Insert peripheral IV AND Saline lock IV AND sodium chloride AND sodium chloride, Insert peripheral IV AND Saline lock IV AND sodium chloride AND sodium chloride [6] No current facility-administered medications on file prior to encounter. Current Outpatient Medications on File Prior to Encounter Medication Sig Dispense Refill Abaloparatide (Tymlos) 3120 MCG/1.56ML solution pen-injector Inject 80 mcg under the skin daily. 1.56 mL 2 calcitriol (Rocaltrol) 0.25 MCG capsule Take 1 capsule by mouth daily. 30 capsule 0 calcium carbonate EX (Tums E-X) 750 MG chewable tablet Chew 1 tablet (750 mg) 1 (one) time each day. capsaicin (Zostrix-HP) 0.075 % topical cream Apply 1 Application topically daily as needed (Leg andfoot cramps). cetirizine (ZyrTEC) 10 MG tablet Take 1 tablet by mouth daily. 30 tablet 2 cholecalciferol (Vitamin D-3) 25 MCG (1000 UT) tablet Take 1 tablet by mouth daily. 90 tablet 2 ciprofloxacin (Cipro) 500 MG tablet Take 1 tablet by mouth daily. 90 tablet 1 insulin aspart (NovoLOG) 100 UNIT/ML injection vial Inject 20 Units under the skin 3 times a day before meals. Plus 4 units for every 50 > 150 MDD 80 units insulin glargine (Lantus SoloStar) 100 UNIT/ML injection pen Inject 48 Units under the skin every morning. lactulose (Chronulac) 10 GM/15ML solution Take 30 mL by mouth 3 times a day. 2700 mL 11 Magnesium Oxide, Laxative, 500 MG tablet Take 1 tablet by mouth daily. 90 tablet 3 midodrine (Proamatine) 5 MG tablet Take 2 tablets by mouth 3 times a day. Multiple Vitamins-Minerals (COMPLETE WOMENS PO) Take 1 tablet by mouth in the morning. [] prochlorperazine (Compazine) 5 MG tablet Take 1 tablet by mouth every 8 hours as needed for nausea or vomiting. 60 tablet 2 rifAXIMin (Xifaxan) 550 MG tablet Take 1 tablet by mouth 2 times a day. 60 tablet 11 zinc sulfate (Zincate) 220 (50 Zn) MG capsule Take 1 capsule by mouth in the morning and 1 capsule before bedtime. 60 capsule 2 ergocalciferol (Vitamin D-2) 1.25 MG (55236 UT) capsule Take 1 capsule by mouth 1 time per week. 4 capsule 0 Zegalogue 0.6 MG/0.6ML solution auto-injector Inject 0.6 mg under the skin 1 time as needed (for extreme hypoglycemia) for up to 1 dose. 0.6 mL 2 * Discharge Summary - Juliane Rodriguez - 07/09/2025 6:54 AM EDT Images from the original note were not included. Hospitalization Admit Date/Time: 06/25/2025 2:14 PM Admitting Attending: Chilo Morales Discharge Date: 07/09/2025 Discharge Attending Physician: Kayla Reed MD PCP name and Address: Alvarez Ordaz MD [address] [place] [address] / [facility] [address] Referring provider name and address: No referring provider defined for this encounter. Chief Concern, Brief History of Present Illness, and Hospital Course History of Present Illness Monika Ordaz is a 64 y.o. female with PMH significant for COPD, CKD stage IIIB, coronary arterydisease, diabetic neuropathy, dysphagia, obesity, JONATHAN on BiPAP nightly, RA, SLE, HLD, type 2 DM, cirrhosis with ascites, esophageal varices, portal hypertension, IBS C/D, presenting from nephrology with concern for CARLOTTA and inability to care for self. On arrival to [facility], patient promptly evaluated by FM Team. Three of her family members are also present at bedside and helps provide the history. Patient confirms the above history provided by the ED.States that the LLQ pain that she is currently experiencing is due to having had a sample of her ascites taken a few days ago. She otherwise has no new complaints at this time. Following interview, 2of her family members state that they are becoming increasingly concerned that they will not be able to care for her as her chronic illnesses progress. State that she has become transiently confused more frequently at home. Patient confirms and states that most recently, she had an issue where she had forgotten how to perform basic hygiene after using the bathroom. Family are requesting patient be placed in a facility with 24 hour care until she is ???stronger?? and able to perform her ADLs. They state they have had this conversation with their PCP already and/or currently working toward that goal. Family Medicine consulted for CARLOTTA in setting of cirrhosis concerning for HRS and patient admitted under attending Dr. Morales. ED Summary Per discussion with ED providers, patient presented to nephrology clinic today for follow up of CKD. Labs were concerning for CARLOTTA and Nephrology was concerned enough to send patient to ED for furtherworkup especially in setting of her general inability to care for self with potential social concerns. Per ED she is hemodynamically stable, occasionally gets paracentesis 1 time per week on with the occasional thoracentesis. She is potentially endorsing some LLQ pain and they found rightpleural effusion versus pneumonia on imaging. Vitals POA: Temp 98.2??, pulse 65, RR 16, BP 121/61, SpO2 98% on room air. Lab work pertinent for CBC with leukopenia WBC 2.33, hemoglobin 9.3 around baseline (normocytic), platelet count 39 (lowest in recent history), PT/INR elevated, CMP with elevated BG 242, creatinine 2.5 on baseline 1.1-1.3, liver enzymes slightly elevated, T bili 2.1, Mag 1.6. ED Imaging conducted and significant for, CXR concerning for new medium-sized right pleural effusion with right lower/middle lobe opacities possibly representing atelectasis versus infection. Additional workup/management in ED includes but not limited to: EKG. Problem Based Summaries #CARLOTTA superimposed on stage 3b CKD #CKD, stage 3b #Cirrhosis of liver with ascites #Hx of spontaneous bacterial peritonitis #Pleural effusion associated with hepatic disorder #LLQ abdominal pain #Vagal Syncope MELD 3.0 changed from 31 on admission and MELD-Na was 28 on admission. Creatinine on admission was 2.5 on baseline 1.1-1.3 and decreased to 1.95. Continued home lactulose, rifaximin, and ciprofloxacin. Midodrine was decreased from 20 mg TID to 10 mg TID. Daily CBC, CMP, Mg, and Phos labs were ordered. Cystatin C was 3.12 up from a baseline 2. Daily vit D 1000 U was continued. Weekly 39448 vit D was not resumed during hospital stay. Medications were renally dosed and nephrotoxic agents were avoided. Nephrology was consulted and agreed with patient's plan. Hepatology recommended SBP labs with paracentesis. Hepatorenal syndrome ruled out. Patient underwent paracentesis +/- thoracocentesis withIR on 06/27. CARLOTTA approaches resolution on 07/01 with Cr levels returning to 1.42. Cr levels elevated to 1.73 on 07/02 albumin challenge started and midodrine dose increased to 15 mg TID. Paracentesis with as needed thoracocentesis are scheduled on . CARLOTTA resolved. Patient elected to come off oftransplant list in favor of pursuing prison care placement. MELD improved to 21. #Other neutropenia #Pancytopenia Baseline WBC is 4.0 and baseline RBC was 3.0. Most recent WBC was 3.24 with 1.84 absolute neutrophils and most recent RBC was 2.67. Labs were monitored throughout the patient's hospital stay. [id number] was initiated for DVT prophylaxis. Blood smear sent to pathology returns as pancytopenia not mo rphologically distinct. Neutropenia resolved 07/01. Patient neutropenic once again on 07/07 with ANC 1.48 though remained without symptoms. Given chronic autoimmune disease and no rheumatology appointments since 2021, will refer patient to rheumatology at discharge. #Physical debility #Self-care deficit Patient reported poor PO intake due to large volume ascites. There was an episode of severe debility the other day where the patient was not able to use the phone and had to go to neighbors for help.Family is involved and amenable to discussion of placement due to concern for declining ability to perform ADLs. PT/OT recommended home health. Nutrition was consulted for recommendations. The patient was [place] to going [place] [facility] [place]. 06/28, patient had an episode of feeling off which she was unable to describe, but which concerned her greatly. She stated she gets this feeling multiple times a week, worst on Fridays, and states that she is unable to concentrate or perform regular tasks (bathroom hygiene, phone calls). After prolonged GOC discussion with patient and family, patient elected to pursue LTC as this is the option she feels will best meet her care needs. Palliative care consulted to discuss their services with patient. Patient was agreeable to NH placement andbegan working on living will and designated MDM while in hospital. #T2DM #Diabetic peripheral neuropathy Blood glucose on admission was 245. Glargine 24 U and resistant SSI were ordered. Hyperglycemia precautions were in place due to reported hypoglycemia at home. Blood glucose trends were monitored throughout the patient's hospital stay. #Dysphagia #Heartburn Patient was advised to hold home omeprazole at most recent nephrology appointment due to concern for CARLOTTA. TOLL COLLECTOR SUPERVISOR consult ordered. TOLL COLLECTOR SUPERVISOR saw patient and determined no overt s/s dysphagia or aspiration, butadvised to consider further evaluation of esophageal phase of swallow if continuing problems. #COPD #JONATHAN treated with BiPAP Patient continued nightly BiPAP at 12/6 per RT recommendations with RT adjusting settings as appropriate. #CAD with stable angina #HLD Crestor was discontinued at her most recent nephrology appointment. Continued to hold Crestor in the hospital. #Hypomagnesemia Magnesium was 1.6 on admission. Patient takes magnesium oxide 400 mg PO at home. Magnesium was monitored throughout hospital stay with repletion as needed. #Serum ammonia increased Patient's ammonia increased to 125 on 06/29. She takes Lactulose 20 TID at home and reports occasionally missing her third dose. She has been receiving all 3 doses while in the hospital and has continued bowel movements. Home Lactulose was continued. Ammonia level showed improvement to 61 on repeat 06/30. Patient began having additional episodes of brain fog and decreased bowel movements. Ammonia level increased to 146 on 07/08. Lactulose was increased to 30 g TID on 07/08. Patient has a history of hepatic encephalopathy with some episodes of feeling off while in the hospital due to improper dosing of Lactulose. She is AAOx3 at this time and has been having 4-5 bowel movements. #Constipation Patient noted to be constipated on 07/07. Started on Miralax and Senna regimen in addition to continued home medications. Miralax can be titrated to have 4 bowel movements daily. #Adult Chronic conditions Obesity SLE RA Medication changes: New Medications: Senna Discontinued Medications: None Medication Modifications: Midodrine increased to 15 mg TID TCM Follow Up - Rheumatology follow up? - Further vagal episodes? - Encourage repeat cbc for resolution of leukopenia - Palliative care discussion - LTC - Ensure patient is having bowel movements with Lactulose - Additional episodes of feeling off ? - Discuss anxiety Outside Specialities & Follow-up Appointments: - Rheumatology - Hepatology - Palliative care - IR Temp: [36.7 ??C (98 ??F)-37.1 ??C (98.7 ??F)] 36.7 ??C (98 ??F) Heart Rate: [61-77] 71 BP: (103-133)/(50-71) 120/67 SpO2: [96 %-98 %] 98 % Surgeries and Procedures Paracentesis with as needed thoracentesis are scheduled for . Medication List PAUSE taking these medications Tymlos 3120 MCG/1.56ML solution pen-injector Wait to take this until your doctor or other care provider tells you to start again. Generic drug: Abaloparatide Inject 80 mcg under the skin daily. Zegalogue 0.6 MG/0.6ML solution auto-injector Wait to take this until your doctor or other care provider tells you to start again. Generic drug: Dasiglucagon HCl Inject 0.6 mg under the skin 1 time as needed (for extreme hypoglycemia) for up to 1 dose. .. benzonatate 100 MG capsule Commonly known as: Tessalon Take 1 capsule by mouth 3 times a day as needed for cough. Do not crush or chew. bisacodyl 10 MG suppository Commonly known as: Dulcolax Insert 1 suppository into the rectum daily as needed for constipation. calcitriol 0.25 MCG capsule Commonly known as: Rocaltrol Take 1 capsule by mouth daily. capsaicin 0.075 % topical cream Commonly known as: Zostrix-HP Apply 1 Application topically daily as needed (Leg and foot cramps). carboxymethylcellulose PF 0.5 % ophthalmic solution Commonly known as: Refresh Plus Administer 1 drop into both eyes as needed for dry eyes. cholecalciferol 25 MCG (1000 UT) tablet Commonly known as: Vitamin D-3 Take 1 tablet by mouth daily. ciprofloxacin 500 MG tablet Commonly known as: Cipro Take 1 tablet by mouth daily. COMPLETE WOMENS PO Take 1 tablet by mouth in the morning. ergocalciferol 1.25 MG (13035 UT) capsule Commonly known as: Vitamin D-2 Take 1 capsule by mouth 1 time per week. hydrOXYzine HCl 25 MG tablet Commonly known as: Atarax Take 0.5 tablets by mouth at night as needed for itching. insulin glargine-yfgn 100 UNIT/ML injection vial Inject 24 Units under the skin daily. * insulin lispro 100 UNIT/ML injection Commonly known as: Admelog Inject 0-10 Units under the skin 3 times a day with meals. See After Visit Summary for instructionson how to take your insulin. * insulin lispro 100 UNIT/ML injection Commonly known as: Admelog Inject 0-3 Units under the skin 2 times a night. See After Visit Summary for instructions on how totake your insulin. lactulose 10 GM/15ML solution Commonly known as: Chronulac Take 30 mL by mouth 3 times a day. lidocaine 5 % patch Commonly known as: Lidoderm Apply 1 patch topically 1 (one) time each day at the same time over 12 hours for 6 doses. Remove & discard patch within 12 hours or as directed by MD. Magnesium Oxide (Laxative) 500 MG tablet Take 1 tablet by mouth daily. melatonin tablet Take 1 tablet by mouth at night as needed for sleep. midodrine 5 MG tablet Commonly known as: Proamatine Take 3 tablets by mouth 3 times a day. polyethylene glycol 17 g packet Commonly known as: Miralax Take 17 g by mouth 2 times a day. prochlorperazine 5 MG tablet Commonly known as: Compazine Take 1 tablet by mouth every 8 hours as needed for nausea or vomiting. rifAXIMin 550 MG tablet Commonly known as: Xifaxan Take 1 tablet by mouth 2 times a day. senna 8.6 MG tablet Commonly known as: Senokot Take 1 tablet by mouth nightly. Tums E-X 750 MG chewable tablet Generic drug: calcium carbonate EX Chew 1 tablet (750 mg) 1 (one) time each day. zinc sulfate 220 (50 Zn) MG capsule Commonly known as: Zincate Take 1 capsule by mouth in the morning and 1 capsule before bedtime. * This list has 2 medication(s) that are the same as other medications prescribed for you. Read thedirections carefully, and ask your doctor or other care provider to review them with you. . cetirizine 10 MG tablet Commonly known as: ZyrTEC Take 1 tablet by mouth daily. Ask about: Which instructions should I use? Where to Get Your Medications These medications were sent to [facility] [place], [place] - [address] [address] cetirizine 10 MG tablet ergocalciferol 1.25 MG (87811 UT) capsule These medications were sent to [facility] [address] [place] [address] [address] [place] [place] [address] prochlorperazine 5 MG tablet Information about where to get these medications is not yet available Ask your nurse or doctor about these medications benzonatate 100 MG capsule bisacodyl 10 MG suppository carboxymethylcellulose PF 0.5 % ophthalmic solution hydrOXYzine HCl 25 MG tablet insulin glargine-yfgn 100 UNIT/ML injection vial insulin lispro 100 UNIT/ML injection insulin lispro 100 UNIT/ML injection lidocaine 5 % patch melatonin tablet midodrine 5 MG tablet polyethylene glycol 17 g packet senna 8.6 MG tablet Discharge Diagnosis Medical Problems Active and Resolved Hospital Problems Hospital Chronic obstructive pulmonary disease (CMS/HCC) Chronic kidney disease, stage 3b (CMS/HCC) 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 (CMS/HCC) Diabetic peripheral neuropathy (CMS/HCC) Dysphagia Heartburn JONATHAN treated with BiPAP Physical debility Lupus (systemic lupus erythematosus) (CMS/HCC) Hyperlipidemia Type 2 diabetes mellitus, with long-term current use of insulin (CMS/HCC) * (Principal) Cirrhosis of liver with ascites (CMS/HCC) Hx of spontaneous bacterial peritonitis Pleural effusion associated with hepatic disorder Self-care deficit Neutropenia Pancytopenia Serum ammonia increased (CMS/HCC) 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 RESOLVED: Obesity (BMI 30.0-34.9) RESOLVED: Acute kidney injury superimposed on stage 3b chronic kidney disease (CMS/HCC) RESOLVED: LLQ abdominal pain RESOLVED: CARLOTTA (acute kidney injury) (CMS/HCC) RESOLVED: Hypomagnesemia RESOLVED: Vasovagal syncope Post Discharge Instructions - Continue Lactulose 30 g TID - Paracentesis with as needed thoracentesis are scheduled for - next one scheduled for 07/11 Outpatient Follow-Up Future Appointments Date Time Provider Department Center 07/11/2025 10:30 AM [facility] 07/11/2025 11:30 AM [facility] 07/18/2025 10:30 AM IR [facility] 07/18/2025 11:30 AM [facility] 07/23/2025 12:00 PM Alvarez Ordaz [facility] 07/25/2025 10:30 AM [facility] 07/25/2025 11:30 AM IR [facility] 07/31/2025 9:00 AM Alvarez Ordaz [facility] 08/20/2025 9:30 [facility] 10:30 AM [facility] [place] [facility]/20/[facility]25 11:00 AM [facility] Test Results Pending At Discharge No pending test results. Pertinent Physical Exam At Time of Discharge Physical Exam Constitutional: General: She is not in acute distress. Appearance: She is not ill-appearing or diaphoretic. HENT: Head: Normocephalic and atraumatic. Right Ear: External ear normal. Left Ear: External ear normal. Nose: Nose normal. Mouth/Throat: Mouth: Mucous membranes are moist. Eyes: Extraocular Movements: Extraocular movements intact. Conjunctiva/sclera: Conjunctivae normal. Cardiovascular: Rate and Rhythm: Normal rate and regular rhythm. Pulses: Normal pulses. Radial pulses are 2+ on the right side and 2+ on the left side. Dorsalis pedis pulses are 2+ on the right side and 2+ on the left side. Posterior tibial pulses are 2+ on the right side and 2+ on the left side. Pulmonary: Effort: Pulmonary effort is normal. Breath sounds: Normal breath sounds. Abdominal: General: Abdomen is flat. Palpations: Abdomen is soft. Tenderness: There is abdominal tenderness (midline and right-sided). There is no guarding or rebound. Musculoskeletal: Cervical back: Normal range of motion. Right lower leg: No edema. Left lower leg: No edema. Skin: General: Skin is warm and dry. Capillary Refill: Capillary refill takes less than 2 seconds. Neurological: Mental Status: She is alert and oriented to person, place, and time. Psychiatric: Mood and Affect: Mood normal. Behavior: Behavior normal. Discharge Disposition/Condition Disposition: SNF at [facility] Condition: Stable (s/sx potential problems absent or manageable) I spent >30 minutes of patient care and instruction time in preparation for this discharge. Juliane Rodriguez, MS4 Cosigned by Kayla Reed MD at 07/09/2025 12:26 PM EDT Associated attestation - Kayla Reed MD - 07/09/2025 12:26 PM EDT I saw and evaluated the patient with the medical/TELEVISION NEWS REPORTER/PA student. I discussed the case with the medical/TELEVISION NEWS REPORTER/PA student and agree with the findings and plan as documented. I personally performed the Examand Medical Decision Making. * Care Plan - Felecia Khanna - 07/08/2025 8:30 PM EDT Problem: Fall Injury Risk Goal: Absence of Fall and Fall-Related Injury Outcome: Ongoing, Progressing Intervention: Identify and Manage Contributors Flowsheets (Taken 07/08/20251999) Medication Review/Management: medications reviewed Self-Care Promotion: independence encouraged Intervention: Promote Injury-Free Environment Flowsheets (Taken 07/08/20251999) Safety Promotion/Fall Prevention: safety round/check completed Problem: Skin Injury Risk Increased Goal: Skin Health and Integrity Outcome: Ongoing, Progressing Intervention: Optimize Skin Protection Flowsheets (Taken 07/08/20251999) Activity Management: activity adjusted per tolerance Pressure Reduction Techniques: frequent weight shift encouraged Pressure Reduction Devices: positioning supports utilized Skin Protection: transparent dressing maintained Head of Bed (HOB) Positioning: HOB elevated Intervention: Promote and Optimize Oral Intake Flowsheets (Taken 07/08/20251999) Oral Nutrition Promotion: rest periods promoted Nutrition Interventions: food preferences provided Problem: Adult Inpatient Plan of Care Goal: Plan of Care Review Outcome: Ongoing, Progressing Flowsheets (Taken 07/09/2025 0502) Progress: no change Plan of Care Reviewed With: patient Goal: Patient-Specific Goal (Individualized) Outcome: Ongoing, Progressing Flowsheets (Taken 07/09/2025 0502) Patient/Family-Specific Goals (Include Timeframe): Patient will be free of falls this shift. Goal: Absence of Hospital-Acquired Illness or Injury Outcome: Ongoing, Progressing Intervention: Identify and Manage Fall Risk Flowsheets (Taken 07/08/20251999) Safety Promotion/Fall Prevention: safety round/check completed Intervention: Prevent Skin Injury Flowsheets (Taken 07/08/20251999) Body Position: weight shifting Skin Protection: transparent dressing maintained Intervention: Prevent and Manage VTE (Venous Thromboembolism) Risk Flowsheets (Taken 07/09/2025 0400) VTE Prevention/Management: bilateral SCDs (sequential compression devices) off Intervention: Prevent Infection Flowsheets (Taken 07/08/20251999) Infection Prevention: rest/sleep promoted hand hygiene promoted Goal: Optimal Comfort and Wellbeing Outcome: Ongoing, Progressing Intervention: Monitor Pain and Promote Comfort Flowsheets (Taken 07/08/20251999) Pain Management Interventions: declines Intervention: Provide Person-Centered Care Flowsheets (Taken 07/08/20251999) Trust Relationship/Rapport: care explained choices provided empathic listening provided questions answered questions encouraged thoughts/feelings acknowledged Problem: Acute Kidney Injury/Impairment Goal: Fluid and Electrolyte Balance Outcome: Ongoing, Progressing Intervention: Monitor and Manage Fluid and Electrolyte Balance Flowsheets (Taken 07/08/20251999) Fluid/Electrolyte Management: fluids provided Goal: Improved Oral Intake Outcome: Ongoing, Progressing Intervention: Promote and Optimize Oral Intake Flowsheets (Taken 07/08/20251999) Oral Nutrition Promotion: rest periods promoted Nutrition Interventions: food preferences provided Goal: Effective Renal Function Outcome: Ongoing, Progressing Intervention: Monitor and Support Renal Function Flowsheets (Taken 07/08/20251999) Medication Review/Management: medications reviewed Problem: Diabetes Goal: Optimal Coping Outcome: Ongoing, Progressing Intervention: Support Wellbeing and Self-Management Success Flowsheets (Taken 07/08/20251999) Supportive Measures: self-care encouraged Family/Support System Care: self-care encouraged Goal: Optimal Functional Ability Outcome: Ongoing, Progressing Intervention: Optimize Functional Ability Flowsheets (Taken 07/08/20251999) Activity Management: activity adjusted per tolerance Activity Assistance Provided: assistance, stand-by Assistive Device Utilized: front wheel walker Self-Care Promotion: independence encouraged Goal: Blood Glucose Level Within Target Range Outcome: Ongoing, Progressing Intervention: Optimize Glycemic Control Flowsheets (Taken 07/08/20251999) Hyperglycemia Management: blood glucose monitored Goal: Minimize Hypoglycemia Risk Outcome: Ongoing, Progressing Intervention: Minimize and Manage Hypoglycemia Flowsheets (Taken 07/08/20251999) Hypoglycemia Management: blood glucose monitored Problem: Self-Care Deficit Goal: Improved Ability to Complete Activities of Daily Living Outcome: Ongoing, Progressing Intervention: Promote Activity and Functional [place] Flowsheets (Taken 07/08/20251999) Activity Assistance Provided: assistance, stand-by Self-Care Promotion: independence encouraged * Progress Notes - Krista Brand - 07/08/2025 2:45 PM EDT Music Therapy Note Session Information: Missed Opportunity: Yes Missed Opportunity Reason: Patient unavailable Comments: Pt using the bathroom. Plan of Care: Will return at a later time. * ACP (Advance Care Planning) - Anthony Holguin APRN, ANGELLA - 07/08/2025 2:27 PM EDT Advance Care Planning Note Discussion Date: 07/08/25 Discussion Participants: patient, mother, and sister The patient wishes to discuss Advance Care Planning today and the following is a brief summary of our discussion. Patient has capacity to make their own medical decisions: Yes Health Care Agent/Surrogate Decision Maker documented in chart: Yes Documents on file and valid: Advance Directive/Living Will: Yes Health Care Power of Iron Pourer: No Communication of Medical Status/Prognosis: Ms. Ordaz verified that she has completed advance directive designating her healthcare surrogates with the psychotherapist social worker. She is pending placement in nursing facility and I recommended consideration of completion of MOST form to outline her medical wishes should she become ill at the facility. MOST form completed as below. As part of completion of MOST form I addressed code status. Ms. Ordaz statesshe would want to undergo resuscitation if it brought her back to living . I informed Ms. Ordaz that in my medical opinion CPR would likely leave her in a more debilitated state and she would be unlikely to return to her current clinical and functional status. She was in agreement with DNR ok to int ubate status. Communication of Treatment Goals/Options: MOST form completed as follows: Section A: Do not attempt resuscitation Section B: Full treatment: Goal: attempt to sustain life by all medically effective means. Provide appropriate medical and surgical treatments as indicated to attempt to prolong life, including intensive care. Section C: Determine use or limitation of antibiotics when infection occurs Section D: IV fluids for a defined trial period with goal to support recovery from an acute illness; NO feeding tube Section E: Completed by adult patient with decisional capacity Treatment Decisions DNR ok to intubate EMS DNR signed and original placed in paper chart. Copy given to patient. MOST form left at bedsideand attending physician notified to sign. Chart updated with correct phone numbers to reflect her specified healthcare surrogates: Primary healthcare surrogate: Irvin Ordaz, son, Secondary healthcare surrogate: Lj Bernal, sister, Alternate if primary and secondary surrogates are unavailable: Karime Singletary, mother, Time Statement: Total face to face time spent on advance care planning was 20 minutes with 20 minutes spent in counseling, including the explanation. Anthony Holguin APRN, DNP 07/08/2025 2:27 PM * Assessment & Plan Note - Juliane Rodriguez - 07/08/2025 1:55 PM EDTAssociated Problem(s): Chronic kidney disease, stage 3b (CMS/HCC) - Cr stable at 1.16 - Paracentesis with as needed thoracentesis scheduled for - Hgb levels stable at 8.0 PLAN - Continue to trend creatinine on daily CMP - Increase home Lactulose back to 30 g TID - Continue home rifaximin and ciprofloxacin - Consult Hepatology if patient worsens - Continue midodrine 15mg TID - Continue daily vit D 1000 U - Strict I&O q4 - Renally dose medications and avoid nephrotoxic agents * Assessment & Plan Note - Juliane Rodriguez - 07/08/2025 1:55 PM EDTAssociated Problem(s): Cirrhosis of liver with ascites (CMS/HCC) - Cr stable at 1.16 - Paracentesis with as needed thoracentesis scheduled for - Hgb levels stable at 8.0 PLAN - Continue to trend creatinine on daily CMP - Increase home Lactulose back to 30 g TID - Continue home rifaximin and ciprofloxacin - Consult Hepatology if patient worsens - Continue midodrine 15mg TID - Continue daily vit D 1000 U - Strict I&O q4 - Renally dose medications and avoid nephrotoxic agents * Assessment & Plan Note - Juliane Rodriguez - 07/08/2025 1:55 PM EDTAssociated Problem(s): Hx of spontaneous bacterial peritonitis - Cr stable at 1.16 - Paracentesis with as needed thoracentesis scheduled for - Hgb levels stable at 8.0 PLAN - Continue to trend creatinine on daily CMP - Increase home Lactulose back to 30 g TID - Continue home rifaximin and ciprofloxacin - Consult Hepatology if patient worsens - Continue midodrine 15mg TID - Continue daily vit D 1000 U - Strict I&O q4 - Renally dose medications and avoid nephrotoxic agents * Assessment & Plan Note - Juliane Rodriguez - 07/08/2025 1:55 PM EDTAssociated Problem(s): Pleural effusion associated with hepatic disorder - Cr stable at 1.16 - Paracentesis with as needed thoracentesis scheduled for - Hgb levels stable at 8.0 PLAN - Continue to trend creatinine on daily CMP - Increase home Lactulose back to 30 g TID - Continue home rifaximin and ciprofloxacin - Consult Hepatology if patient worsens - Continue midodrine 15mg TID - Continue daily vit D 1000 U - Strict I&O q4 - Renally dose medications and avoid nephrotoxic agents * Assessment & Plan Note - Juliane Rodriguez - 07/08/2025 1:55 PM EDTAssociated Problem(s): LLQ abdominal pain (Resolved 07/09/2025) - Cr stable at 1.16 - Paracentesis with as needed thoracentesis scheduled for - Hgb levels stable at 8.0 PLAN - Continue to trend creatinine on daily CMP - Increase home Lactulose back to 30 g TID - Continue home rifaximin and ciprofloxacin - Consult Hepatology if patient worsens - Continue midodrine 15mg TID - Continue daily vit D 1000 U - Strict I&O q4 - Renally dose medications and avoid nephrotoxic agents * Assessment & Plan Note - Juliane Rodriguez - 07/08/2025 1:55 PM EDTAssociated Problem(s): Vasovagal syncope (Resolved 07/09/2025) - Cr stable at 1.16 - Paracentesis with as needed thoracentesis scheduled for - Hgb levels stable at 8.0 PLAN - Continue to trend creatinine on daily CMP - Increase home Lactulose back to 30 g TID - Continue home rifaximin and ciprofloxacin - Consult Hepatology if patient worsens - Continue midodrine 15mg TID - Continue daily vit D 1000 U - Strict I&O q4 - Renally dose medications and avoid nephrotoxic agents * Assessment & Plan Note - Juliane Rodriguez - 07/08/2025 1:55 PM EDTAssociated Problem(s): Pancytopenia - WBC 2.74 (baseline 4.0) with 1.52 absolute neutrophils - RBC 2.56 (baseline 3.0), platelets 43 (baseline 55) PLAN - Continue to monitor - Continue Heparin for DVT prophylaxis - Rheumatology referral outpatient - Patient will NOT need neutropenic precautions at LTC outside of the hospital. * Assessment & Plan Note - Juliane Rodriguez - 07/08/2025 1:55 PM EDTAssociated Problem(s): Neutropenia - WBC 2.74 (baseline 4.0) with 1.52 absolute neutrophils - RBC 2.56 (baseline 3.0), platelets 43 (baseline 55) PLAN - Continue to monitor - Continue Heparin for DVT prophylaxis - Rheumatology referral outpatient - Patient will NOT need neutropenic precautions at LTC outside of the hospital. * Assessment & Plan Note - Juliane Rodriguez - 07/08/2025 1:55 PM EDTAssociated Problem(s): Serum ammonia increased (CMS/HCC) - Ammonia 146 PLAN - Increase home Lactulose to 30 g TID - Recheck ammonia if neurologic change suspected * Care Plan - Mariam Gonzalez RN - 07/08/2025 11:27 AM EDT Problem: Fall Injury Risk Goal: Absence of Fall and Fall-Related Injury Outcome: Ongoing, Progressing Intervention: Identify and Manage Contributors Flowsheets (Taken 07/08/2025 08) Medication Review/Management: medications reviewed Self-Care Promotion: independence encouraged Intervention: Promote Injury-Free Environment Flowsheets (Taken 07/08/2025799) Safety Promotion/Fall Prevention: activity supervised Problem: Skin Injury Risk Increased Goal: Skin Health and Integrity Outcome: Ongoing, Progressing Intervention: Optimize Skin Protection Flowsheets (Taken 07/08/2025799) Activity Management: activity adjusted per tolerance Intervention: Promote and Optimize Oral Intake Flowsheets Taken 07/08/20255 Nutrition Interventions: diet adjusted supplemental foods provided Taken 07/08/2025799 Oral Nutrition Promotion: rest periods promoted Problem: Adult Inpatient Plan of Care Goal: Plan of Care Review Outcome: Ongoing, Progressing Flowsheets Taken 07/08/20251124 Progress: no change Plan of Care Reviewed With: patient Taken 07/07/2025 1407 Outcome Evaluation: pt will partcipate in plan of care during this shift. Goal: Patient-Specific Goal (Individualized) Outcome: Ongoing, Progressing Flowsheets (Taken 07/08/2025799) Patient/Family-Specific Goals (Include Timeframe): pt will particpate in OT/PT during this shift Individualized Care Needs: work with pt/ot Anxieties, Fears or Concerns: sad about going to prison Goal: Absence of Hospital-Acquired Illness or Injury Outcome: Ongoing, Progressing Intervention: Identify and Manage Fall Risk Flowsheets (Taken 07/08/2025799) Safety Promotion/Fall Prevention: activity supervised Intervention: Prevent Skin Injury Flowsheets (Taken 07/08/2025799) Body Position: weight shifting Intervention: Prevent and Manage VTE (Venous Thromboembolism) Risk Flowsheets (Taken 07/08/2025799) VTE Prevention/Management: medication Intervention: Prevent Infection Flowsheets (Taken 07/08/2025799) Infection Prevention: hand hygiene promoted Goal: Optimal Comfort and Wellbeing Outcome: Ongoing, Progressing Intervention: Monitor Pain and Promote Comfort Flowsheets (Taken 07/08/2025799) Pain Management Interventions: medication (see MAR) Intervention: Provide Person-Centered Care Flowsheets (Taken 07/08/2025 0800) Trust Relationship/Rapport: care explained Problem: Acute Kidney Injury/Impairment Goal: Fluid and Electrolyte Balance Outcome: Ongoing, Progressing Intervention: Monitor and Manage Fluid and Electrolyte Balance Flowsheets (Taken 07/08/2025 112) Fluid/Electrolyte Management: fluids adjusted Goal: Improved Oral Intake Outcome: Ongoing, Progressing Intervention: Promote and Optimize Oral Intake Flowsheets (Taken 07/08/2025 1125) Nutrition Interventions: diet adjusted supplemental foods provided Goal: Effective Renal Function Outcome: Ongoing, Progressing Intervention: Monitor and Support Renal Function Flowsheets (Taken 07/08/2025 0800) Medication Review/Management: medications reviewed Problem: Diabetes Goal: Optimal Coping Outcome: Ongoing, Progressing Intervention: Support Wellbeing and Self-Management Success Flowsheets (Taken 07/08/2025 08) Family/Support System Care: self-care encouraged Goal: Optimal Functional Ability Outcome: Ongoing, Progressing Intervention: Optimize Functional Ability Flowsheets (Taken 07/08/2025 08) Activity Assistance Provided: assistance, stand-by Goal: Blood Glucose Level Within Target Range Outcome: Ongoing, Progressing Intervention: Optimize Glycemic Control Flowsheets (Taken 07/08/2025 112) Hyperglycemia Management: blood glucose monitored Goal: Minimize Hypoglycemia Risk Outcome: Ongoing, Progressing Intervention: Minimize and Manage Hypoglycemia Flowsheets (Taken 07/08/2025 112) Hypoglycemia Management: blood glucose monitored Problem: Self-Care Deficit Goal: Improved Ability to Complete Activities of Daily Living Outcome: Ongoing, Progressing Intervention: Promote Activity and Functional [place] Flowsheets (Taken 07/08/2025 0800) Activity Assistance Provided: assistance, stand-by * Assessment & Plan Note - Juliane Rodriguez - 07/08/2025 11:14 AM EDTAssociated Problem(s): Type 2 diabetes mellitus, with long-term current use of insulin ([facility]) - Glucose 172 PLAN - Continue Glargine 24 U daily + resistant SSI - Continue to monitor glucose trends * Assessment & Plan Note - Juliane Rodriguez - 07/08/2025 11:14 AM EDTAssociated Problem(s): Diabetic peripheral neuropathy ([facility]/HCC) - Glucose 172 PLAN - Continue Glargine 24 U daily + resistant SSI - Continue to monitor glucose trends * Assessment & Plan Note - Juliane Rodriguez - 07/08/2025 11:14 AM EDTAssociated Problem(s): Hypomagnesemia (Resolved 07/09/2025) - Mg 1.9 PLAN - Continue magnesium oxide 400 mg daily - Check Levels Daily * Progress Notes - Francis Leal - 07/08/2025 10:55 AM EDT Physical Therapy Treatment Patient Name: Monika Ordaz Today's Date: 07/08/2025 PT Discharge Recommendations: Home with 24 hour assistance, Home health PT, Home health OT Equipment Recommended: Patient owns appropriate equipment Subjective Pt agreeable to PT Participants in Care Family/Caregiver Present: No Presentation Oxygen Oxygen Therapy: None (Room air) Lines and Tubes Lines and Tubes: Intravenous access Pre-Session RN and patient gave consent for PT treatment session. Patient received Supine, Head of bed elevated, Lines intact, Bed alarm. Post-Session Patient positioned for comfort and pressure relief at end of session, all needs met. Supine, Head of bed elevated, Lines intact, RN notified, Call light in reach, Bed alarm (zone 1, 2, 3). Precautions Medical Precautions: Fall precautions Objective Pain Pain Score (0-10):no limiting pain reported Delirium Screening RASS: Alert and calm Confusion Assessment Method-ICU (CAM-ICU/PCAM-ICU) Feature 3: Altered Level of Consciousness: Negative Therapeutic Activity (25 minutes) Pt performed transitional skills and standing activity to promote functional mobility and progress activity tolerance. Cuing and feedback provided throughout for safe and efficient movement patterns to maximize outcomes. Patient participating in therapeutic activities as described in detail in sections below. Bed Mobility Bed Mobility Exam: Scooting/Bridging Level of [place]: Stand-by assist Physical/Nonphysical Assist: Supervision Assistive Device: Bed rails Bed Mobility Exam: Supine to Sit Level of [place]: Stand-by assist Physical/Nonphysical Assist: Supervision, HOB elevated Assistive Device: Bed rails Bed Mobility Exam: Sit to Supine Level of [place]: Stand-by assist Physical/Nonphysical Assist: Supervision, HOB elevated Assistive Device: Bed rails Transfers Transfer Exam: Sit to stand Level of [place]: Stand-by assist Physical/Nonphysical Assist: Supervision Assistive Device: Rollator Transfer Exam: Stand to Sit Level of [place]: Stand-by assist Physical/Nonphysical Assist: Supervision Assistive Device: Rollator Ambulation Device: Rollator Assistance: Standby assist Distance : 200ft + seated rest + 200ft Ambulation Comments: no overt LOB, slowed speed, intermittent short standing rest breaks Total visit time was 25 minutes, with skilled time spent on the above functional mobility and activities including coordination of care with other team members and counseling the patient on appropriate activity and participation modifications, safety considerations, daily activities to perform to help improve functional mobility while remaining inpatient and discussion of current impairments and comorbidities and impacts they have on overall health. Discharge planning considerations and optionspresented and discussed with patient. Assessment Tolerates session without adverse events. Patient's functional mobility is improving. Patient continues to demonstrate functional mobility and functional activity tolerance/endurance deficits. Will continue to benefit from skilled services to progress activity tolerance, build muscular endurance and improve functional independence PT Recommendations Discharge Destination: Home with 24 hour assistance, Home health PT, Home health OT Discharge Equipment: Patient owns appropriate equipment Plan Continue to progress functional mobility. PT Goals PT GOAL DETAILS Goal Established Date Time Frame Goal Status PT Goal 1: Pt will demonstrate the ability to perform transfers with SBA and LRAD 07/02/25 2 weeks PT Goal 2: Pt will demonstrate the ability to amb 300ft with SBA and LRAD 07/02/25 2 weeks PT Goal 3: Pt will demonstrate the ability to tolerate 15 minutes in total of static/dynamic standing activity with SBA and LRAD 07/02/25 2 weeks Written by Francis Leal on 07/08/25 at 12:13 PM. * Progress Notes - Venessa Brown - 07/08/2025 10:47 AM EDT Case Management Adult Progress Note Monika rOdaz 64 y.o. female CSN: [id number] Admission: 06/25/2025 2:14 PM Primary Problem: Acute kidney injury superimposed on stage 3b chronic kidney disease (CMS/HCC) Additional Comments SW met with the Family Medicine team to discuss pts POC. Pt is medically ready for discharge at this time. Pt is pending insurance approval for SNF at [facility] in [place]. SW spoke with liaison, Ro, and she stated that pts insurance asked for an updated MD note which was sent this morning. Pt is still pending insurance approval. SW will continue to follow and assist. Venessa Brown * Consults - Barrie Álvarez - 07/08/2025 10:04 AM EDT Pastoral Care Note Patient verbally and tearfully processed emotions and thoughts about her new plan of care. She struggles with the idea of being removed from the transplant list and what it ultimately means for her futre. As we talked, I sensed a more hopeful person in dialogue with me by the end of my visit. We shared in prayer. Referral From: Nurse Pastoral Care Provided For: Patient Patient Profile: Consult Reasons: Non-urgent referral Spiritual Assessment: Spiritual Needs: Emotional support, Prayer Spiritual Issues: Important Relationship Concerns, Grief/ loss, /Dying Interventions: Interventions Provided: Emotional support, Identify uatsdin/ spiritual coping, Prayer, SupportiveListening Pastoral Care Outcomes: * Assessment & Plan Note - Juliane Rodriguez - 07/08/2025 8:55 AM EDTAssociated Problem(s): Dysphagia - Reflux stable PLAN - Continue to hold omeprazole * Assessment & Plan Note - Juliane Rodriguez - 07/08/2025 8:55 AM EDTAssociated Problem(s): Heartburn - Reflux stable PLAN - Continue to hold omeprazole * Assessment & Plan Note - Juliane Rodriguez - 07/08/2025 8:55 AM EDTAssociated Problem(s): Chronic obstructive pulmonary disease ([facility]/HCC) - Chronic; on home BiPAP, per RT recs * Assessment & Plan Note - Juliane Rodriguez - 07/08/2025 8:55 AM EDTAssociated Problem(s): JONATHAN treated with BiPAP - Chronic; on home BiPAP, per RT recs * Assessment & Plan Note - Juliane Rodriguez - 07/08/2025 8:55 AM EDTAssociated Problem(s): 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 ([facility]) - Chronic; Continue to hold Crestor * Assessment & Plan Note - Juliane Rodriguez - 07/08/2025 8:55 AM EDTAssociated Problem(s): Hyperlipidemia - Chronic; Continue to hold Crestor * Assessment & Plan Note - Juliane Rodriguez - 07/08/2025 8:55 AM EDTAssociated Problem(s): Obesity (BMI 30.0-34.9) (Resolved 07/09/2025) - Chronic; Complicates all aspects of care * Assessment & Plan Note - Juliane Rodriguez - 07/08/2025 8:55 AM EDTAssociated Problem(s): Physical debility - Patient has met with palliative care - LTC placement has been identified and patient will likely have a bed Sunday 07/08 - At this time patient's goals are to continue to pursue therapeutic paracentesis as well as medical management of other conditions PLAN - Delirium protocols - Continue Up to Chair TID, q4 turns - Ongoing GOC discussions - Palliative follow up outpatient * Assessment & Plan Note - Juliane Rodriguez - 07/08/2025 8:55 AM EDTAssociated Problem(s): Self-care deficit - Patient has met with palliative care - LTC placement has been identified and patient will likely have a bed Sunday 07/08 - At this time patient's goals are to continue to pursue therapeutic paracentesis as well as medical management of other conditions PLAN - Delirium protocols - Continue Up to Chair TID, q4 turns - Ongoing GOC discussions - Palliative follow up outpatient * Assessment & Plan Note - Juliane Rodriguez - 07/08/2025 8:55 AM EDTAssociated Problem(s): 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 Subjective Monika Ordaz is a 64 y.o. female who was seen and evaluated on 07/08/2025. Currently on HospitalDay Hospital Day: 14. Overnight, patient reported not having a BM since the morning of 07/06. She felt weird overnight and reported increased shortness of breath and anxiety. She pulled off her BiPAP.She slept okay after receiving melatonin. Atarax was also ordered but patient did not receive it. Ammonia was 146. She had some soft BPs which is typical for her. This AM: Patient reports that she does not have any brain fog this morning. She was not able to gether mind to settle last night but felt better after melatonin. She ate supper yesterday but not much lunch. She felt nauseous with the smell of fish. She had a bowel movement this morning consisting of formed stool. Her head felt warm overnight. Denies chills, lightheadedness, dizziness, and abdominal pain. She is oriented x3. Review of Systems Additional review of systems negative except per HPI. Objective Visit Vitals BP 118/69 Pulse 63 Temp 36.7 ??C (98.1 ??F) Resp 16 Ht 1.651 m (5' 5 ) Wt 81 kg (178 lb 9.2 oz) SpO2 98% BMI 29.72 kg/m?? OB Status Postmenopausal Smoking Status Never BSA 1.93 m?? Physical Exam Constitutional: General: She is not in acute distress. Appearance: She is not ill-appearing. HENT: Head: Normocephalic and atraumatic. Right Ear: External ear normal. Left Ear: External ear normal. Nose: Nose normal. Mouth/Throat: Mouth: Mucous membranes are moist. Eyes: Extraocular Movements: Extraocular movements intact. Conjunctiva/sclera: Conjunctivae normal. Cardiovascular: Rate and Rhythm: Normal rate and regular rhythm. Pulses: Normal pulses. Radial pulses are 2+ on the right side and 2+ on the left side. Dorsalis pedis pulses are 2+ on the right side and 2+ on the left side. Posterior tibial pulses are 2+ on the right side and 2+ on the left side. Pulmonary: Effort: Pulmonary effort is normal. Breath sounds: Normal breath sounds. Abdominal: General: Abdomen is flat. Palpations: Abdomen is soft. Comments: Diffuse abdominal tenderness. Musculoskeletal: Cervical back: Normal range of motion. Right lower leg: No edema. Left lower leg: No edema. Skin: General: Skin is warm and dry. Capillary Refill: Capillary refill takes less than 2 seconds. Neurological: Mental Status: She is alert and oriented to person, place, and time. Psychiatric: Mood and Affect: Mood normal. Behavior: Behavior normal. Labs and cultures: Reviewed and significant for ammonia 146. Imaging/diagnostic studies: No new imaging. Assessment/Plan Assessment: Monika Ordaz is a 64 y.o. female with PMH of COPD, CKD stage 3b, CAD, T2DM with diabetic neuropathy, dysphagia, obesity, JONATHAN, HLD, cirrhosis with ascites, esophageal varices, portal HTN, IBS C/D, rheumatoid arthritis with positive Rf, and SLE admitted on 06/25/2025 for CARLOTTA in the setting of cirrhosis with ascites now on Hospital Day: 14 requiring ongoing hospitalization for LTC placement. Currently, the patient's condition is good based on resolution of CARLOTTA and overall clinical stability but debility. Assessment & Plan Chronic kidney disease, stage 3b (CMS/HCC) Cirrhosis of liver with ascites (CMS/HCC) Hx of spontaneous bacterial peritonitis Pleural effusion associated with hepatic disorder LLQ abdominal pain Vasovagal syncope - Cr stable at 1.16 - Paracentesis with as needed thoracentesis scheduled for - Hgb levels stable at 8.0 PLAN - Continue to trend creatinine on daily CMP - Increase home Lactulose back to 30 g TID - Continue home rifaximin and ciprofloxacin - Consult Hepatology if patient worsens - Continue midodrine 15mg TID - Continue daily vit D 1000 U - Strict I&O q4 - Renally dose medications and avoid nephrotoxic agents Pancytopenia Neutropenia - WBC 2.74 (baseline 4.0) with 1.52 absolute neutrophils - RBC 2.56 (baseline 3.0), platelets 43 (baseline 55) PLAN - Continue to monitor - Continue Heparin for DVT prophylaxis - Rheumatology referral outpatient - Patient will NOT need neutropenic precautions at LTC outside of the hospital. 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 - Patient has met with palliative care - LTC placement has been identified and patient will likely have a bed Sunday 07/08 - At this time patient's goals are to continue to pursue therapeutic paracentesis as well as medical management of other conditions PLAN - Delirium protocols - Continue Up to Chair TID, q4 turns - Ongoing GOC discussions - Palliative follow up outpatient Type 2 diabetes mellitus, with long-term current use of insulin ([facility]) Diabetic peripheral neuropathy ([facility]) - Glucose 172 PLAN - Continue Glargine 24 U daily + resistant SSI - Continue to monitor glucose trends Dysphagia Heartburn - Reflux stable PLAN - Continue to hold omeprazole Serum ammonia increased ([facility]) - Ammonia 146 PLAN - Increase home Lactulose to 30 g TID - Recheck ammonia if neurologic change suspected Hypomagnesemia - Mg 1.9 PLAN - Continue magnesium oxide 400 mg daily - Check Levels Daily Chronic obstructive pulmonary disease ([facility]) JONATHAN treated with BiPAP - Chronic; on home BiPAP, per RT recs 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 ([facility]) Hyperlipidemia - Chronic; Continue to hold Crestor Obesity (BMI 30.0-34.9) - Chronic; Complicates all aspects of care Resolved Hospital Problems: - CARLOTTA F: PO E: Monitor and replace as necessary N: Adult diet Diet texture: Regular; Carbohydrate restriction: Consistent Carb 2 (80 gm max/meal); Sodium restriction: 2,000 mg Na GI: no PPI DVT prophylaxis: Heparin Lines and Tubes: pIV CODE: Full Code SOCIAL: Currently lives alone, sister assists with medications, lives an hour away PT/OT: recommendations: home with assist (patient has elected to pursue LTC) Consultants: PT/OT, Nutrition, Hepatology, Nephrology, IR, Transplant, Palliative Care Disposition: Medically Ready for Discharge:Ready Now [] LTC placement Juliane Rodriguez, MS4 Cosigned by Kayla Reed MD at 07/08/2025 4:10 PM EDT Associated attestation - Kayla Reed MD - 07/08/2025 4:10 PM EDT I saw and evaluated the patient with the medical/TELEVISION NEWS REPORTER/PA student. I discussed the case with the medical/TELEVISION NEWS REPORTER/PA student and agree with the findings and plan as documented. I personally performed the Examand Medical Decision Making. * Care Plan - Felecia Khanna - 07/07/2025 8:10 PM EDT Problem: Fall Injury Risk Goal: Absence of Fall and Fall-Related Injury Outcome: Ongoing, Progressing Intervention: Identify and Manage Contributors Flowsheets (Taken 07/07/20251999) Medication Review/Management: medications reviewed Self-Care Promotion: independence encouraged Intervention: Promote Injury-Free Environment Flowsheets (Taken 07/07/20251999) Safety Promotion/Fall Prevention: safety round/check completed Problem: Skin Injury Risk Increased Goal: Skin Health and Integrity Outcome: Ongoing, Progressing Intervention: Optimize Skin Protection Flowsheets (Taken 07/07/20251999) Activity Management: activity adjusted per tolerance Pressure Reduction Devices: positioning supports utilized Skin Protection: transparent dressing maintained Head of Bed (HOB) Positioning: HOB elevated Intervention: Promote and Optimize Oral Intake Flowsheets (Taken 07/07/20251999) Oral Nutrition Promotion: rest periods promoted Nutrition Interventions: food preferences provided Problem: Adult Inpatient Plan of Care Goal: Plan of Care Review Outcome: Ongoing, Progressing Flowsheets (Taken 07/08/2025 0101) Progress: improving Plan of Care Reviewed With: patient Goal: Patient-Specific Goal (Individualized) Outcome: Ongoing, Progressing Flowsheets (Taken 07/08/2025 0101) Patient/Family-Specific Goals (Include Timeframe): Patient will have adequate pain control this shift. Goal: Absence of Hospital-Acquired Illness or Injury Outcome: Ongoing, Progressing Intervention: Identify and Manage Fall Risk Flowsheets (Taken 07/07/20251999) Safety Promotion/Fall Prevention: safety round/check completed Intervention: Prevent Skin Injury Flowsheets (Taken 07/07/20251999) Body Position: weight shifting Skin Protection: transparent dressing maintained Intervention: Prevent and Manage VTE (Venous Thromboembolism) Risk Flowsheets (Taken 07/07/20251999) VTE Prevention/Management: SCDs (sequential compression devices) off Intervention: Prevent Infection Flowsheets (Taken 07/07/20251999) Infection Prevention: rest/sleep promoted hand hygiene promoted Goal: Optimal Comfort and Wellbeing Outcome: Ongoing, Progressing Intervention: Monitor Pain and Promote Comfort Flowsheets (Taken 07/07/20251999) Pain Management Interventions: pain management plan reviewed with patient/caregiver Intervention: Provide Person-Centered Care Flowsheets (Taken 07/07/20251999) Trust Relationship/Rapport: care explained choices provided empathic listening provided questions answered questions encouraged thoughts/feelings acknowledged Problem: Acute Kidney Injury/Impairment Goal: Fluid and Electrolyte Balance Outcome: Ongoing, Progressing Intervention: Monitor and Manage Fluid and Electrolyte Balance Flowsheets (Taken 07/07/20251999) Fluid/Electrolyte Management: fluids provided Goal: Improved Oral Intake Outcome: Ongoing, Progressing Intervention: Promote and Optimize Oral Intake Flowsheets (Taken 07/07/20251999) Oral Nutrition Promotion: rest periods promoted Nutrition Interventions: food preferences provided Goal: Effective Renal Function Outcome: Ongoing, Progressing Intervention: Monitor and Support Renal Function Flowsheets (Taken 07/07/20251999) Medication Review/Management: medications reviewed Problem: Diabetes Goal: Optimal Coping Outcome: Ongoing, Progressing Intervention: Support Wellbeing and Self-Management Success Flowsheets (Taken 07/07/20251999) Family/Support System Care: self-care encouraged Goal: Optimal Functional Ability Outcome: Ongoing, Progressing Intervention: Optimize Functional Ability Flowsheets (Taken 07/07/20251999) Activity Management: activity adjusted per tolerance Activity Assistance Provided: assistance, stand-by Assistive Device Utilized: front wheel walker Self-Care Promotion: independence encouraged Goal: Blood Glucose Level Within Target Range Outcome: Ongoing, Progressing Intervention: Optimize Glycemic Control Flowsheets (Taken 07/08/2025 010) Hyperglycemia Management: blood glucose monitored Goal: Minimize Hypoglycemia Risk Outcome: Ongoing, Progressing Intervention: Minimize and Manage Hypoglycemia Flowsheets (Taken 07/08/2025 010) Hypoglycemia Management: blood glucose monitored Problem: Self-Care Deficit Goal: Improved Ability to Complete Activities of Daily Living Outcome: Ongoing, Progressing Intervention: Promote Activity and Functional [place] Flowsheets (Taken 07/07/20251999) Activity Assistance Provided: assistance, stand-by Self-Care Promotion: independence encouraged * Tali Schroeder - Mariam Gonzalez RN - 07/07/2025 2:09 PM EDT Problem: Fall Injury Risk Goal: Absence of Fall and Fall-Related Injury Intervention: Identify and Manage Contributors Flowsheets (Taken 07/07/2025 0800) Medication Review/Management: medications reviewed Self-Care Promotion: independence encouraged Intervention: Promote Injury-Free Environment Flowsheets (Taken 07/07/2025799) Safety Promotion/Fall Prevention: activity supervised Problem: Skin Injury Risk Increased Goal: Skin Health and Integrity Intervention: Optimize Skin Protection Flowsheets (Taken 07/07/2025799) Activity Management: activity adjusted per tolerance Pressure Reduction Techniques: frequent weight shift encouraged Head of Bed (HOB) Positioning: HOB elevated Intervention: Promote and Optimize Oral Intake Flowsheets (Taken 07/07/2025799) Oral Nutrition Promotion: rest periods promoted Problem: Adult Inpatient Plan of Care Goal: Plan of Care Review Flowsheets (Taken 07/07/2025 1407) Progress: no change Outcome Evaluation: pt will partcipate in plan of care during this shift. Plan of Care Reviewed With: patient Goal: Patient-Specific Goal (Individualized) Flowsheets (Taken 07/07/2025799) Patient/Family-Specific Goals (Include Timeframe): pt will remain free from falls during this shift Individualized Care Needs: safety Anxieties, Fears or Concerns: feels weird Goal: Absence of Hospital-Acquired Illness or Injury Intervention: Identify and Manage Fall Risk Flowsheets (Taken 07/07/2025799) Safety Promotion/Fall Prevention: activity supervised Intervention: Prevent Skin Injury Flowsheets (Taken 07/07/2025799) Body Position: weight shifting Intervention: Prevent and Manage VTE (Venous Thromboembolism) Risk Flowsheets (Taken 07/07/2025 1156) VTE Prevention/Management: medication Intervention: Prevent Infection Flowsheets (Taken 07/07/2025799) Infection Prevention: hand hygiene promoted Goal: Optimal Comfort and Wellbeing Intervention: Monitor Pain and Promote Comfort Flowsheets (Taken 07/07/2025799) Pain Management Interventions: medication (see MAR) Intervention: Provide Person-Centered Care Flowsheets (Taken 07/07/2025799) Trust Relationship/Rapport: care explained Problem: Acute Kidney Injury/Impairment Goal: Fluid and Electrolyte Balance Intervention: Monitor and Manage Fluid and Electrolyte Balance Flowsheets (Taken 07/07/2025799) Fluid/Electrolyte Management: fluids restricted Goal: Improved Oral Intake Intervention: Promote and Optimize Oral Intake Flowsheets (Taken 07/07/2025799) Oral Nutrition Promotion: rest periods promoted Goal: Effective Renal Function Intervention: Monitor and Support Renal Function Flowsheets (Taken 07/07/2025 0800) Medication Review/Management: medications reviewed * Assessment & Plan Note - Marcelo Pichardo - 07/07/2025 1:38 PM EDTAssociated Problem(s): Pancytopenia - WBC 2.65 (baseline 4.0) with 1.48 absolute neutrophils - RBC 2.56 (baseline 3.0), platelets 46 (baseline 55) - Patient is completely asymptomatic at this time PLAN - Continue to monitor - Continue Heparin for DVT prophylaxis - Rheumatology referral outpatient - Patient will NOT need neutropenic precautions at LTC outside of the hospital. * Assessment & Plan Note - Marcelo Pichardo - 07/07/2025 1:38 PM EDTAssociated Problem(s): Neutropenia - WBC 2.65 (baseline 4.0) with 1.48 absolute neutrophils - RBC 2.56 (baseline 3.0), platelets 46 (baseline 55) - Patient is completely asymptomatic at this time PLAN - Continue to monitor - Continue Heparin for DVT prophylaxis - Rheumatology referral outpatient - Patient will NOT need neutropenic precautions at LTC outside of the hospital. * Assessment & Plan Note - Marcelo Pichardo - 07/07/2025 12:59 PM EDT Associated Problem(s): Acute kidney injury superimposed on stage 3b chronic kidney disease (CMS/HCC) (Resolved 07/07/2025) - Cr stable at 1.2 - Paracentesis with as needed thoracentesis scheduled for - Hgb levels stable at 8.0 PLAN - Continue to trend creatinine on daily CMP - Continue home lactulose, rifaximin, and ciprofloxacin - Consult Hepatology if patient worsens - Continue midodrine 15mg TID - Continue daily vit D 1000 U - Strict I&O q4 - Renally dose medications and avoid nephrotoxic agents * Assessment & Plan Note - Marcelo Pichardo - 07/07/2025 12:59 PM EDT Associated Problem(s): Chronic kidney disease, stage 3b (CMS/HCC) - Cr stable at 1.2 - Paracentesis with as needed thoracentesis scheduled for - Hgb levels stable at 8.0 PLAN - Continue to trend creatinine on daily CMP - Continue home lactulose, rifaximin, and ciprofloxacin - Consult Hepatology if patient worsens - Continue midodrine 15mg TID - Continue daily vit D 1000 U - Strict I&O q4 - Renally dose medications and avoid nephrotoxic agents * Assessment & Plan Note - Marcelo Pichardo - 07/07/2025 12:59 PM EDT Associated Problem(s): Cirrhosis of liver with ascites (CMS/HCC) - Cr stable at 1.2 - Paracentesis with as needed thoracentesis scheduled for - Hgb levels stable at 8.0 PLAN - Continue to trend creatinine on daily CMP - Continue home lactulose, rifaximin, and ciprofloxacin - Consult Hepatology if patient worsens - Continue midodrine 15mg TID - Continue daily vit D 1000 U - Strict I&O q4 - Renally dose medications and avoid nephrotoxic agents * Assessment & Plan Note - Marcelo Pichardo - 07/07/2025 12:59 PM EDT Associated Problem(s): Hx of spontaneous bacterial peritonitis - Cr stable at 1.2 - Paracentesis with as needed thoracentesis scheduled for - Hgb levels stable at 8.0 PLAN - Continue to trend creatinine on daily CMP - Continue home lactulose, rifaximin, and ciprofloxacin - Consult Hepatology if patient worsens - Continue midodrine 15mg TID - Continue daily vit D 1000 U - Strict I&O q4 - Renally dose medications and avoid nephrotoxic agents * Assessment & Plan Note - Marcelo Pichardo - 07/07/2025 12:59 PM EDT Associated Problem(s): Pleural effusion associated with hepatic disorder - Cr stable at 1.2 - Paracentesis with as needed thoracentesis scheduled for - Hgb levels stable at 8.0 PLAN - Continue to trend creatinine on daily CMP - Continue home lactulose, rifaximin, and ciprofloxacin - Consult Hepatology if patient worsens - Continue midodrine 15mg TID - Continue daily vit D 1000 U - Strict I&O q4 - Renally dose medications and avoid nephrotoxic agents * Assessment & Plan Note - Marcelo Pichardo - 07/07/2025 12:59 PM EDT Associated Problem(s): LLQ abdominal pain (Resolved 07/09/2025) - Cr stable at 1.2 - Paracentesis with as needed thoracentesis scheduled for - Hgb levels stable at 8.0 PLAN - Continue to trend creatinine on daily CMP - Continue home lactulose, rifaximin, and ciprofloxacin - Consult Hepatology if patient worsens - Continue midodrine 15mg TID - Continue daily vit D 1000 U - Strict I&O q4 - Renally dose medications and avoid nephrotoxic agents * Assessment & Plan Note - Marcelo Pichardo - 07/07/2025 12:59 PM EDT Associated Problem(s): Vasovagal syncope (Resolved 07/09/2025) - Cr stable at 1.2 - Paracentesis with as needed thoracentesis scheduled for - Hgb levels stable at 8.0 PLAN - Continue to trend creatinine on daily CMP - Continue home lactulose, rifaximin, and ciprofloxacin - Consult Hepatology if patient worsens - Continue midodrine 15mg TID - Continue daily vit D 1000 U - Strict I&O q4 - Renally dose medications and avoid nephrotoxic agents * Assessment & Plan Note - Marcelo Pichardo - 07/07/2025 12:59 PM EDT Associated Problem(s): Physical debility - Patient has met with palliative care - LTC placement has been identified and patient will likely have a bed Sunday 07/08 - At this time patient's goals are to continue to pursue therapeutic paracentesis as well as medical management of other conditions PLAN - Delirium protocols - Continue Up to Chair TID, q4 turns - Ongoing GOC discussions - Palliative follow up outpatient * Assessment & Plan Note - Marcelo Pichardo - 07/07/2025 12:59 PM EDT Associated Problem(s): Self-care deficit - Patient has met with palliative care - LTC placement has been identified and patient will likely have a bed Sunday 07/08 - At this time patient's goals are to continue to pursue therapeutic paracentesis as well as medical management of other conditions PLAN - Delirium protocols - Continue Up to Chair TID, q4 turns - Ongoing GOC discussions - Palliative follow up outpatient * Assessment & Plan Note - Marcelo Pichardo - 07/07/2025 12:59 PM EDT Associated Problem(s): 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 - Patient has met with palliative care - LTC placement has been identified and patient will likely have a bed Sunday 07/08 - At this time patient's goals are to continue to pursue therapeutic paracentesis as well as medical management of other conditions PLAN - Delirium protocols - Continue Up to Chair TID, q4 turns - Ongoing GOC discussions - Palliative follow up outpatient * Assessment & Plan Note - Marcelo Pichardo - 07/07/2025 12:59 PM EDT Associated Problem(s): Type 2 diabetes mellitus, with long-term current use of insulin ([facility]) - Glucose 151 PLAN - Continue Glargine 24 U daily + resistant SSI - Continue to monitor glucose trends * Assessment & Plan Note - Marcelo Pichardo - 07/07/2025 12:59 PM EDT Associated Problem(s): Diabetic peripheral neuropathy ([facility]) - Glucose 151 PLAN - Continue Glargine 24 U daily + resistant SSI - Continue to monitor glucose trends * Assessment & Plan Note - Marcelo Pichardo - 07/07/2025 12:59 PM EDT Associated Problem(s): Dysphagia - Reflux stable PLAN - Continue to hold omeprazole * Assessment & Plan Note - Marcelo Pichardo - 07/07/2025 12:59 PM EDT Associated Problem(s): Heartburn - Reflux stable PLAN - Continue to hold omeprazole * Assessment & Plan Note - Marcelo Pichardo - 07/07/2025 12:59 PM EDT Associated Problem(s): Serum ammonia increased ([facility]) - Last ammonia stable at 61 on 06/30 PLAN - Continue home Lactulose - Recheck ammonia if neurologic change suspected * Assessment & Plan Note - Marcelo Pichardo - 07/07/2025 12:59 PM EDT Associated Problem(s): Hypomagnesemia (Resolved 07/09/2025) - Mg 1.9 PLAN - Continue magnesium oxide 400 mg daily - Check Levels Daily * Assessment & Plan Note - Marcelo Pichardo - 07/07/2025 12:59 PM EDT Associated Problem(s): Chronic obstructive pulmonary disease ([facility]) - Chronic; on home BiPAP, per RT recs * Assessment & Plan Note - Marcelo Pichardo - 07/07/2025 12:59 PM EDT Associated Problem(s): JONATHAN treated with BiPAP - Chronic; on home BiPAP, per RT recs * Assessment & Plan Note - Marcelo Pichardo - 07/07/2025 12:59 PM EDT Associated Problem(s): 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 Subjective Monika Ordaz is a 64 y.o. female who was seen and evaluated on 07/07/2025. Currently on HospitalDay Hospital Day: 13. NAEON. No concerns from Nursing. This AM: Patient is doing well overall. States she feels well from a medical standpoint, though does have some anxiety around transitioning to living in a LTC facility. She states her eyes have been extra teary and she would like some eye drops. Abdominal swelling is stable patient feels at her baseline neurologically. Patient states she has continued to work on her living will and her sister andmother have been great support for her during this time. Denies fever, chest pain, abdominal pain, syncope, confusion, and swelling. Review of Systems Additional review of systems negative except per HPI. Objective Visit Vitals BP 100/59 Pulse 58 Temp 37.1 ??C (98.7 ??F) Resp 16 Ht 1.651 m (5' 5 ) Wt 79.7 kg (175 lb 11.3 oz) SpO2 96% BMI 29.24 kg/m?? OB Status Postmenopausal Smoking Status Never BSA 1.91 m?? Physical Exam HENT: Head: Normocephalic. Nose: Nose normal. Eyes: General: No scleral icterus. Conjunctiva/sclera: Conjunctivae normal. Cardiovascular: Rate and Rhythm: Normal rate and regular rhythm. Pulses: Normal pulses. Heart sounds: Normal heart sounds. Pulmonary: Effort: Pulmonary effort is normal. No respiratory distress. Breath sounds: No wheezing. Abdominal: General: There is no distension. Palpations: Abdomen is soft. Tenderness: There is no abdominal tenderness. There is no guarding. Musculoskeletal: General: No swelling. Right lower leg: No edema. Left lower leg: No edema. Skin: General: Skin is warm. Capillary Refill: Capillary refill takes 2 to 3 seconds. Coloration: Skin is not jaundiced. Neurological: General: No focal deficit present. Mental Status: She is alert and oriented to person, place, and time. Mental status is at baseline. Labs and cultures: Reviewed and significant for Cr stable at 1.2 MELD 3.0: 21 Tbili improved to 2.9from 3.2, HgB stable at 8.0 Imaging/diagnostic studies: No new imaging Assessment/Plan Assessment: Monika Ordaz is a 64 y.o. female with PMH of COPD, CKD stage 3b, CAD, T2DM with diabetic neuropathy, dysphagia, obesity, JONATHAN, HLD, cirrhosis with ascites, esophageal varices, portal HTN, IBS C/D, rheumatoid arthritis with positive Rf, and SLE admitted on 06/25/2025 for CARLOTTA in the setting of cirrhosis with ascites now on Hospital Day: 13 requiring ongoing hospitalization for LTC placement. Currently, the patient's condition is good based on resolution of CARLOTTA and overall clinical stability though with chronic debility requiring placement in LTC facility. Assessment & Plan Acute kidney injury superimposed on stage 3b chronic kidney disease (CMS/HCC) (Resolved: 07/07/2025) Chronic kidney disease, stage 3b (CMS/HCC) Cirrhosis of liver with ascites (CMS/HCC) Hx of spontaneous bacterial peritonitis Pleural effusion associated with hepatic disorder LLQ abdominal pain Vasovagal syncope - Cr stable at 1.2 - Paracentesis with as needed thoracentesis scheduled for - Hgb levels stable at 8.0 PLAN - Continue to trend creatinine on daily CMP - Continue home lactulose, rifaximin, and ciprofloxacin - Consult Hepatology if patient worsens - Continue midodrine 15mg TID - Continue daily vit D 1000 U - Strict I&O q4 - Renally dose medications and avoid nephrotoxic agents Pancytopenia Neutropenia - WBC 2.65 (baseline 4.0) with 1.48 absolute neutrophils - RBC 2.56 (baseline 3.0), platelets 46 (baseline 55) - Patient is completely asymptomatic at this time PLAN - Continue to monitor - Continue Heparin for DVT prophylaxis - Rheumatology referral outpatient - Patient will NOT need neutropenic precautions at LTC outside of the hospital. 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 - Patient has met with palliative care - LTC placement has been identified and patient will likely have a bed Sunday 07/08 - At this time patient's goals are to continue to pursue therapeutic paracentesis as well as medical management of other conditions PLAN - Delirium protocols - Continue Up to Chair TID, q4 turns - Ongoing GOC discussions - Palliative follow up outpatient Type 2 diabetes mellitus, with long-term current use of insulin ([facility]/HCC) Diabetic peripheral neuropathy ([facility]/HCC) - Glucose 151 PLAN - Continue Glargine 24 U daily + resistant SSI - Continue to monitor glucose trends Dysphagia Heartburn - Reflux stable PLAN - Continue to hold omeprazole Serum ammonia increased ([facility]/HCC) - Last ammonia stable at 61 on 06/30 PLAN - Continue home Lactulose - Recheck ammonia if neurologic change suspected Hypomagnesemia - Mg 1.9 PLAN - Continue magnesium oxide 400 mg daily - Check Levels Daily Chronic obstructive pulmonary disease (CMS/HCC) JONATHAN treated with BiPAP - Chronic; on home BiPAP, per RT recs 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 ([facility]/HCC) Hyperlipidemia - Chronic; Continue to hold Crestor Obesity (BMI 30.0-34.9) - Chronic; Complicates all aspects of care F: PO E: Monitor and replace as necessary N: Adult diet Diet texture: Regular; Carbohydrate restriction: Consistent Carb 2 (80 gm max/meal); Sodium restriction: 2,000 mg Na GI: no PPI DVT prophylaxis: Heparin Lines and Tubes: pIV CODE: Full Code SOCIAL: Currently lives alone, sister assists with medications, lives an hour away PT/OT: recommendations: Home with assist (patient has elected to pursue LTC) Consultants: PT/OT, Nutrition, Hepatology, Nephrology, IR, Transplant, Palliative Care Disposition: Medically Ready for Discharge:Ready Now [] LTC Placement Marcelo Pichardo, MS4 Cosigned by Kayla Reed MD at 07/07/2025 1:57 PM EDT Associated attestation - Kayla Reed MD - 07/07/2025 1:57 PM EDT I saw and evaluated the patient with the medical/TELEVISION NEWS REPORTER/PA student. I discussed the case with the medical/TELEVISION NEWS REPORTER/PA student and agree with the findings and plan as documented. I personally performed the Examand Medical Decision Making. * Progress Notes - Fredy Otero - 07/07/2025 9:40 AM EDT Physical Therapy Treatment Patient Name: Monika Ordaz Today's Date: 07/07/2025 PT Discharge Recommendations: Home with 24 hour assistance, Home health PT, Home health OT Equipment Recommended: Patient owns appropriate equipment Subjective Pt agreeable to session. States she thinks she will be leaving to go to another facility soon. Participants in Care Family/Caregiver Present: No Family/Caregiver: Mother, Other (Specify) (Sister) Bench Assembler Battery: Not Applicable Presentation Oxygen Therapy: None (Room air) Lines and Tubes: Intravenous access Pre-Session: Supine, Head of bed elevated, Lines intact Pre-Session Comments: Bed alarm not in use upon entry for session. Post-Session: Supine, Head of bed elevated, Lines intact, RN notified, Call light in reach, Bed alarm (zone 1, 2, 3) Post-Session Comments: All needs met and within reach. Precautions Medical Precautions: Fall precautions Objective Pain No pain reported. Delirium Screening RASS: Alert and calm Confusion Assessment Method-ICU (CAM-ICU/PCAM-ICU) Feature 3: Altered Level of Consciousness: Negative Bed Mobility Bed Mobility Exam: Scooting/Bridging Level of [place]: Stand-by assist Physical/Nonphysical Assist: Supervision Assistive Device: Bed rails Bed Mobility Exam: Supine to Sit Level of [place]: Stand-by assist Physical/Nonphysical Assist: Supervision, HOB elevated Assistive Device: Bed rails Bed Mobility Exam: Sit to Supine Level of [place]: Contact guard Physical/Nonphysical Assist: Supervision, HOB elevated Assistive Device: Bed rails Transfers Transfer Exam: Sit to stand Level of [place]: Contact guard Physical/Nonphysical Assist: Supervision, Verbal Cues, Minimal cues Assistive Device: Rollator Transfer Exam: Stand to Sit Level of [place]: Stand-by assist Physical/Nonphysical Assist: Supervision, Verbal Cues, Minimal cues Assistive Device: Rollator Toilet Transfer Level of [place]: Contact guard Physical/Nonphysical Assist: Supervision, Verbal Cues, Minimal cues Type of Transfer: Ambulation, To toilet Assistive Device: Rollator Balance Static Sitting Balance Static Sitting-Balance Support: Right upper extremity support, Left upper extremity support, Feet supported Static Sitting-Level of Assistance: Supervision Dynamic Sitting Balance Dynamic Sitting-Balance Support: Right upper extremity support, Left upper extremity support, Feet supported Dynamic Sitting-Balance: Lateral weight shifts, Anterior/Posterior weight shifts Level of Assistance: Supervision Static Standing Balance Static Standing-Balance Support: Right upper extremity support, Left upper extremity support Static Standing-Level of Assistance: Standby assist Dynamic Standing Balance Dynamic Standing-Balance Support: Right upper extremity support, Left upper extremity support Dynamic Standing-Balance: Lateral weight shifts, Anterior/Posterior weight shifts Dynamic Standing Level of Assistance: Contact guard Gait Training (23 minutes) Device: Rollator Assistance: Standby assist Distance: 75', 75', 160' Gait Analysis: Slowed rogers and gait speed, narrow LISSETT, downward gaze throughout. 2x standing rest breaks, 1x seated rest break provided to recover. No LOB noted. Gait Training Interventions: Cueing for upright posture, increased rogers and speed to match PT's pace. Assessment Pt continues to make progress towards established PT goals, she demonstrated the ability to amb in the hallway with SBA for safety and use of rollator. Pt will continue to benefit from skilled PT while IP in order to address impairments and facilitate the highest level of independence with mobilitypossible. PT Recommendations Discharge Destination: Home with 24 hour assistance, Home health PT, Home health OT Discharge Equipment: Patient owns appropriate equipment Plan Continue PT POC. PT Goals PT GOAL DETAILS Goal Established Date Time Frame Goal Status PT Goal 1: Pt will demonstrate the ability to perform transfers with SBA and LRAD 07/02/25 2 weeks PT Goal 2: Pt will demonstrate the ability to amb 300ft with SBA and LRAD 07/02/25 2 weeks PT Goal 3: Pt will demonstrate the ability to tolerate 15 minutes in total of static/dynamic standing activity with SBA and LRAD 07/02/25 2 weeks Written by Fredy Otero on 07/07/25 at 11:39 AM. * Care Plan - Rochelle Xiong LPN - 07/07/2025 4:06 AM EDT Problem: Fall Injury Risk Goal: Absence of Fall and Fall-Related Injury Outcome: Ongoing, Progressing Intervention: Identify and Manage Contributors Flowsheets (Taken 07/06/2025 0400) Medication Review/Management: medications reviewed Self-Care Promotion: independence encouraged Intervention: Promote Injury-Free Environment Flowsheets (Taken 07/06/20251999) Safety Promotion/Fall Prevention: activity supervised Problem: Skin Injury Risk Increased Goal: Skin Health and Integrity Outcome: Ongoing, Progressing Intervention: Optimize Skin Protection Flowsheets Taken 07/06/20251999 Activity Management: activity adjusted per tolerance Skin Protection: incontinence pads utilized Head of Bed (HOB) Positioning: HOB elevated Taken 07/06/2025 0400 Pressure Reduction Techniques: frequent weight shift encouraged Pressure Reduction Devices: positioning supports utilized Intervention: Promote and Optimize Oral Intake Flowsheets (Taken 07/06/2025 0400) Oral Nutrition Promotion: rest periods promoted Nutrition Interventions: frequent small meals provided Problem: Adult Inpatient Plan of Care Goal: Plan of Care Review Outcome: Ongoing, Progressing Flowsheets Taken 07/07/2025404 Progress: improving Taken 07/06/2025 0403 Outcome Evaluation: Patient will follow plan of care throughout shift Taken 07/05/2025 0504 Plan of Care Reviewed With: patient Goal: Patient-Specific Goal (Individualized) Outcome: Ongoing, Progressing Flowsheets (Taken 07/06/20251999) Patient/Family-Specific Goals (Include Timeframe): patient will remain free from harm for duration of shift Individualized Care Needs: safety Anxieties, Fears or Concerns: none stated Goal: Absence of Hospital-Acquired Illness or Injury Outcome: Ongoing, Progressing Intervention: Identify and Manage Fall Risk Flowsheets (Taken 07/06/20251999) Safety Promotion/Fall Prevention: activity supervised Intervention: Prevent Skin Injury Flowsheets (Taken 07/06/20251999) Body Position: weight shifting Skin Protection: incontinence pads utilized Intervention: Prevent and Manage VTE (Venous Thromboembolism) Risk Flowsheets (Taken 07/07/2025 0333) VTE Prevention/Management: SCDs (sequential compression devices) off Intervention: Prevent Infection Flowsheets (Taken 07/07/2025 0405) Infection Prevention: hand hygiene promoted rest/sleep promoted Goal: Optimal Comfort and Wellbeing Outcome: Ongoing, Progressing Intervention: Monitor Pain and Promote Comfort Flowsheets (Taken 07/07/2025 0405) Pain Management Interventions: declines Intervention: Provide Person-Centered Care Flowsheets (Taken 07/07/2025 040) Trust Relationship/Rapport: care explained choices provided emotional support provided empathic listening provided questions answered questions encouraged reassurance provided thoughts/feelings acknowledged Problem: Acute Kidney Injury/Impairment Goal: Fluid and Electrolyte Balance Outcome: Ongoing, Progressing Intervention: Monitor and Manage Fluid and Electrolyte Balance Flowsheets (Taken 07/06/2025 0400) Fluid/Electrolyte Management: fluids restricted Goal: Improved Oral Intake Outcome: Ongoing, Progressing Intervention: Promote and Optimize Oral Intake Flowsheets (Taken 07/06/2025 0400) Oral Nutrition Promotion: rest periods promoted Nutrition Interventions: frequent small meals provided Goal: Effective Renal Function Outcome: Ongoing, Progressing Intervention: Monitor and Support Renal Function Flowsheets (Taken 07/06/2025 0400) Stabilization Measures: legs elevated Medication Review/Management: medications reviewed * Assessment & Plan Note - Juliane Rodriguez - 07/06/2025 11:50 AM EDTAssociated Problem(s): Acute kidney injury superimposed on stage 3b chronic kidney disease (CMS/HCC) (Resolved 07/07/2025) - Completed albumin challenge on 07/03 - Creatinine improved to 1.18 from 1.25 (baseline 1.1-1.3) - Paracentesis with as needed thoracentesis scheduled for - Hgb levels decreased to 7.8 PLAN - Continue to trend creatinine on daily CMP - Continue home lactulose, rifaximin, and ciprofloxacin - Monitor for signs of acute bleed stable at this time - Consult Hepatology if patient worsens - Continue midodrine 15mg TID - Continue daily vit D 1000 U - Strict I&O q4 - Renally dose medications and avoid nephrotoxic agents * Assessment & Plan Note - Juliane Rodriguez - 07/06/2025 11:50 AM EDTAssociated Problem(s): Chronic kidney disease, stage 3b (CMS/HCC) - Completed albumin challenge on 07/03 - Creatinine improved to 1.18 from 1.25 (baseline 1.1-1.3) - Paracentesis with as needed thoracentesis scheduled for - Hgb levels decreased to 7.8 PLAN - Continue to trend creatinine on daily CMP - Continue home lactulose, rifaximin, and ciprofloxacin - Monitor for signs of acute bleed stable at this time - Consult Hepatology if patient worsens - Continue midodrine 15mg TID - Continue daily vit D 1000 U - Strict I&O q4 - Renally dose medications and avoid nephrotoxic agents * Assessment & Plan Note - Juliane Rodriguez - 07/06/2025 11:50 AM EDTAssociated Problem(s): Cirrhosis of liver with ascites (CMS/HCC) - Completed albumin challenge on 07/03 - Creatinine improved to 1.18 from 1.25 (baseline 1.1-1.3) - Paracentesis with as needed thoracentesis scheduled for - Hgb levels decreased to 7.8 PLAN - Continue to trend creatinine on daily CMP - Continue home lactulose, rifaximin, and ciprofloxacin - Monitor for signs of acute bleed stable at this time - Consult Hepatology if patient worsens - Continue midodrine 15mg TID - Continue daily vit D 1000 U - Strict I&O q4 - Renally dose medications and avoid nephrotoxic agents * Assessment & Plan Note - Juliane Rodriguez - 07/06/2025 11:50 AM EDTAssociated Problem(s): Hx of spontaneous bacterial peritonitis - Completed albumin challenge on 07/03 - Creatinine improved to 1.18 from 1.25 (baseline 1.1-1.3) - Paracentesis with as needed thoracentesis scheduled for - Hgb levels decreased to 7.8 PLAN - Continue to trend creatinine on daily CMP - Continue home lactulose, rifaximin, and ciprofloxacin - Monitor for signs of acute bleed stable at this time - Consult Hepatology if patient worsens - Continue midodrine 15mg TID - Continue daily vit D 1000 U - Strict I&O q4 - Renally dose medications and avoid nephrotoxic agents * Assessment & Plan Note - Juliane Rodriguez - 07/06/2025 11:50 AM EDTAssociated Problem(s): Pleural effusion associated with hepatic disorder - Completed albumin challenge on 07/03 - Creatinine improved to 1.18 from 1.25 (baseline 1.1-1.3) - Paracentesis with as needed thoracentesis scheduled for - Hgb levels decreased to 7.8 PLAN - Continue to trend creatinine on daily CMP - Continue home lactulose, rifaximin, and ciprofloxacin - Monitor for signs of acute bleed stable at this time - Consult Hepatology if patient worsens - Continue midodrine 15mg TID - Continue daily vit D 1000 U - Strict I&O q4 - Renally dose medications and avoid nephrotoxic agents * Assessment & Plan Note - Juliane Rodriguez - 07/06/2025 11:50 AM EDTAssociated Problem(s): LLQ abdominal pain (Resolved 07/09/2025) - Completed albumin challenge on 07/03 - Creatinine improved to 1.18 from 1.25 (baseline 1.1-1.3) - Paracentesis with as needed thoracentesis scheduled for - Hgb levels decreased to 7.8 PLAN - Continue to trend creatinine on daily CMP - Continue home lactulose, rifaximin, and ciprofloxacin - Monitor for signs of acute bleed stable at this time - Consult Hepatology if patient worsens - Continue midodrine 15mg TID - Continue daily vit D 1000 U - Strict I&O q4 - Renally dose medications and avoid nephrotoxic agents * Assessment & Plan Note - Juliane Rodriguez - 07/06/2025 11:50 AM EDTAssociated Problem(s): Vasovagal syncope (Resolved 07/09/2025) - Completed albumin challenge on 07/03 - Creatinine improved to 1.18 from 1.25 (baseline 1.1-1.3) - Paracentesis with as needed thoracentesis scheduled for - Hgb levels decreased to 7.8 PLAN - Continue to trend creatinine on daily CMP - Continue home lactulose, rifaximin, and ciprofloxacin - Monitor for signs of acute bleed stable at this time - Consult Hepatology if patient worsens - Continue midodrine 15mg TID - Continue daily vit D 1000 U - Strict I&O q4 - Renally dose medications and avoid nephrotoxic agents * Assessment & Plan Note - Juliane Rodriguez - 07/06/2025 11:50 AM EDTAssociated Problem(s): Pancytopenia - WBC 2.99 (baseline 4.0) with 1.73 absolute neutrophils - RBC 2.51 (baseline 3.0), platelets 49 (baseline 55) - Stable overall PLAN - Continue to monitor - Continue Heparin for DVT prophylaxis - Rheumatology referral outpatient - Patient is listed as neutropenic per hospital protocol, she will NOT need neutropenic precautionsat LTC outside of the hospital. * Assessment & Plan Note - Juliane Rodriguez - 07/06/2025 11:50 AM EDTAssociated Problem(s): Type 2 diabetes mellitus, with long-term current use of insulin ([facility]) - Glucose 128 PLAN - Continue Glargine 24 U daily + resistant SSI - Continue to monitor glucose trends * Assessment & Plan Note - Juliane Rodriguez - 07/06/2025 11:50 AM EDTAssociated Problem(s): Diabetic peripheral neuropathy ([facility]) - Glucose 128 PLAN - Continue Glargine 24 U daily + resistant SSI - Continue to monitor glucose trends * Assessment & Plan Note - Juliane Rodriguez - 07/06/2025 11:50 AM EDTAssociated Problem(s): Hypomagnesemia (Resolved 07/09/2025) - Mg 1.7 overnight - Patient received IV magnesium replacement PLAN - Continue magnesium oxide 400 mg daily - Check Levels Daily * Care Plan - Keara, Maya - 07/06/2025 9:52 AM EDT Problem: Fall Injury Risk Goal: Absence of Fall and Fall-Related Injury Outcome: Ongoing, Progressing Problem: Skin Injury Risk Increased Goal: Skin Health and Integrity Outcome: Ongoing, Progressing Problem: Adult Inpatient Plan of Care Goal: Plan of Care Review Outcome: Ongoing, Progressing Flowsheets Taken 07/06/2025 0403 by Rochelle Xiong LPN Progress: improving Taken 07/05/2025 0504 by Rochelle Xiong LPN Plan of Care Reviewed With: patient Goal: Patient-Specific Goal (Individualized) Outcome: Ongoing, Progressing Flowsheets (Taken 07/06/2025 0800) Patient/Family-Specific Goals (Include Timeframe): pt will remain at or below stated pain goal thisshift Individualized Care Needs: care ongoing Anxieties, Fears or Concerns: none expressed Goal: Absence of Hospital-Acquired Illness or Injury Outcome: Ongoing, Progressing Intervention: Identify and Manage Fall Risk Flowsheets (Taken 07/06/2025 0950) Safety Promotion/Fall Prevention: lighting adjusted mobility aid in reach nonskid shoes/slippers when out of bed clutter-free environment maintained activity supervised Intervention: Prevent Skin Injury Flowsheets Taken 07/06/2025 0950 by Shawna Sarah Body Position: sitting up in bed Taken 07/06/2025 0400 by Rochelle Xiong LPN Skin Protection: incontinence pads utilized Intervention: Prevent and Manage VTE (Venous Thromboembolism) Risk Flowsheets (Taken 07/06/2025399 by Rochelle Xiong LPN) VTE Prevention/Management: SCDs (sequential compression devices) off Intervention: Prevent Infection Flowsheets (Taken 07/06/202550) Infection Prevention: single patient room provided hand hygiene promoted equipment surfaces disinfected environmental surveillance performed cohorting utilized Goal: Optimal Comfort and Wellbeing Outcome: Ongoing, Progressing Intervention: Provide Person-Centered Care Flowsheets (Taken 07/06/2025949) Trust Relationship/Rapport: care explained choices provided emotional support provided empathic listening provided questions answered questions encouraged Problem: Acute Kidney Injury/Impairment Goal: Fluid and Electrolyte Balance Outcome: Ongoing, Progressing Goal: Improved Oral Intake Outcome: Ongoing, Progressing Goal: Effective Renal Function Outcome: Ongoing, Progressing Intervention: Monitor and Support Renal Function Flowsheets (Taken 07/06/2025399 by Rochelle Xiong LPN) Stabilization Measures: legs elevated Medication Review/Management: medications reviewed * Assessment & Plan Note - Juliane Rodriguez - 07/06/2025 7:03 AM EDTAssociated Problem(s): Physical debility - Patient at this time has elected to pursue [facility] placement and would like to speak with palliative care to learn more about their services - SW working to find LTC facility placement - palliative consulted PLAN - Delirium protocols - Continue Up to Chair TID, q4 turns - Ongoing GOC discussions * Assessment & Plan Note - Juliane Rodriguez - 07/06/2025 7:03 AM EDTAssociated Problem(s): Self-care deficit - Patient at this time has elected to pursue [facility] Pract[facility] Care placement and would like to speak with palliative care to learn more about their services - SW working to find LTC facility placement - palliative consulted PLAN - Delirium protocols - Continue Up to Chair TID, q4 turns - Ongoing GOC discussions * Assessment & Plan Note - Juliane Rodriguez - 07/06/2025 7:03 AM EDTAssociated Problem(s): 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 - Patient at this time has elected to pursue [facility] placement and would like to speak with palliative care to learn more about their services - SW working to find LTC facility placement - palliative consulted PLAN - Delirium protocols - Continue Up to Chair TID, q4 turns - Ongoing GOC discussions * Assessment & Plan Note - Juliane Rodriguez - 07/06/2025 7:03 AM EDTAssociated Problem(s): Dysphagia - Reflux stable PLAN - Continue to hold omeprazole * Assessment & Plan Note - Juliane Rodriguez - 07/06/2025 7:03 AM EDTAssociated Problem(s): Heartburn - Reflux stable PLAN - Continue to hold omeprazole * Assessment & Plan Note - Juliane Rodriguez - 07/06/2025 7:03 AM EDTAssociated Problem(s): Serum ammonia increased (CMS/HCC) - Last ammonia stable at 61 on 06/30 PLAN - Continue home Lactulose - Recheck ammonia if neurologic change suspected * Assessment & Plan Note - Juliane Rodriguez - 07/06/2025 7:03 AM EDTAssociated Problem(s): Chronic obstructive pulmonary disease ([facility]) - Chronic; on home BiPAP, per RT recs * Assessment & Plan Note - Juliane Rodriguez - 07/06/2025 7:03 AM EDTAssociated Problem(s): JONATHAN treated with BiPAP - Chronic; on home BiPAP, per RT recs * Assessment & Plan Note - Juliane Rodriguez - 07/06/2025 7:03 AM EDTAssociated Problem(s): 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 Subjective Monika Ordaz is a 64 y.o. female who was seen and evaluated on 07/06/2025. Currently on HospitalDay Hospital Day: 12. Overnight, the patient had low blood pressures ranging from 96/48-49. She wasasymptomatic. Mg was 1.7. Patient received IV magnesium repletion. This AM: Patient reports doing well. She is sleeping with BiPAP. BP was low overnight. Denies lightheadedness, dizziness, chest pain, and heart palpitations. She reports that abdominal pain is minimal this morning. Denies any additional episodes of confusion. Review of Systems Additional review of systems negative except per HPI. Objective Visit Vitals BP (!) 96/49 Pulse 57 Temp 36.7 ??C (98.1 ??F) Resp 16 Ht 1.651 m (5' 5 ) Wt 81.6 kg (179 lb 14.3 oz) SpO2 94% BMI 29.94 kg/m?? OB Status Postmenopausal Smoking Status Never BSA 1.93 m?? Physical Exam Constitutional: General: She is not in acute distress. Appearance: Normal appearance. She is not ill-appearing. HENT: Head: Normocephalic and atraumatic. Right Ear: External ear normal. Left Ear: External ear normal. Nose: Nose normal. Mouth/Throat: Mouth: Mucous membranes are moist. Eyes: Extraocular Movements: Extraocular movements intact. Conjunctiva/sclera: Conjunctivae normal. Cardiovascular: Rate and Rhythm: Normal rate and regular rhythm. Pulses: Normal pulses. Radial pulses are 2+ on the right side and 2+ on the left side. Posterior tibial pulses are 2+ on the right side and 2+ on the left side. Pulmonary: Effort: Pulmonary effort is normal. Breath sounds: Normal breath sounds. Abdominal: General: Abdomen is flat. Palpations: Abdomen is soft. Tenderness: There is generalized abdominal tenderness. There is no guarding or rebound. Musculoskeletal: Cervical back: Normal range of motion. Right lower leg: No edema. Left lower leg: No edema. Skin: General: Skin is warm and dry. Neurological: Mental Status: She is alert. Psychiatric: Mood and Affect: Mood normal. Behavior: Behavior normal. Labs and cultures: Reviewed and significant for Glucose 128, Mg 1.7, BUN decreased to 25, Cr decreased to 1.18, T bili 3.2, Pt 24.2, INR 2.1, Hgb 7.8, WBC 2.99, RBC 2.51, Plt 49. Imaging/diagnostic studies: No new imaging. Assessment/Plan Assessment: Monika Ordaz is a 64 y.o. 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 Currently, the patient's condition is good based on resolved CARLOTTA but debility and severe cirrhosis. Assessment & Plan Acute kidney injury superimposed on stage 3b chronic kidney disease (CMS/HCC) Chronic kidney disease, stage 3b (CMS/HCC) Cirrhosis of liver with ascites (CMS/HCC) Hx of spontaneous bacterial peritonitis Pleural effusion associated with hepatic disorder LLQ abdominal pain Vasovagal syncope - Completed albumin challenge on 07/03 - Creatinine improved to 1.18 from 1.25 (baseline 1.1-1.3) - Paracentesis with as needed thoracentesis scheduled for - Hgb levels decreased to 7.8 PLAN - Continue to trend creatinine on daily CMP - Continue home lactulose, rifaximin, and ciprofloxacin - Monitor for signs of acute bleed stable at this time - Consult Hepatology if patient worsens - Continue midodrine 15mg TID - Continue daily vit D 1000 U - Strict I&O q4 - Renally dose medications and avoid nephrotoxic agents Pancytopenia - WBC 2.99 (baseline 4.0) with 1.73 absolute neutrophils - RBC 2.51 (baseline 3.0), platelets 49 (baseline 55) - Stable overall PLAN - Continue to monitor - Continue Heparin for DVT prophylaxis - Rheumatology referral outpatient - Patient is listed as neutropenic per hospital protocol, she will NOT need neutropenic precautionsat LTC outside of the hospital. 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 - Patient at this time has elected to pursue [facility] placement and would like to speak with palliative care to learn more about their services - SW working to find LTC facility placement - palliative consulted PLAN - Delirium protocols - Continue Up to Chair TID, q4 turns - Ongoing GOC discussions Type 2 diabetes mellitus, with long-term current use of insulin ([facility]/HCC) Diabetic peripheral neuropathy ([facility]) - Glucose 128 PLAN - Continue Glargine 24 U daily + resistant SSI - Continue to monitor glucose trends Dysphagia Heartburn - Reflux stable PLAN - Continue to hold omeprazole Serum ammonia increased (CMS/[facility]) - Last ammonia stable at 61 on 06/30 PLAN - Continue home Lactulose - Recheck ammonia if neurologic change suspected Hypomagnesemia - Mg 1.7 overnight - Patient received IV magnesium replacement PLAN - Continue magnesium oxide 400 mg daily - Check Levels Daily Chronic obstructive pulmonary disease ([facility]/HCC) JONATHAN treated with BiPAP - Chronic; on home BiPAP, per RT recs 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 ([facility]) Hyperlipidemia - Chronic; Continue to hold Crestor Obesity (BMI 30.0-34.9) - Chronic; Complicates all aspects of care Resolved Hospital Problems: - CARLOTTA F: PO E: Monitor and replace as necessary N: Adult diet Diet texture: Regular; Carbohydrate restriction: Consistent Carb 2 (80 gm max/meal); Sodium restriction: 2,000 mg Na GI: no PPI DVT prophylaxis: Heparin Lines and Tubes: pIV CODE: Full Code SOCIAL: Currently lives alone, sister assists with medications, lives an hour away PT/OT: recommendations: home with home health (patient has elected to go to LTC facility) Consultants: PT/OT, Nutrition, Hepatology, Nephrology, IR, Transplant Disposition: Medically Ready for Discharge:Ready Now [] LTC placement Juliane Rodriguez, MS4 Cosigned by Kayla Reed MD at 07/06/2025 4:28 PM EDT Associated attestation - Kayla Reed MD - 07/06/2025 4:28 PM EDT I saw and evaluated the patient with the medical/TELEVISION NEWS REPORTER/PA student. I discussed the case with the medical/TELEVISION NEWS REPORTER/PA student and agree with the findings and plan as documented. I personally performed the Examand Medical Decision Making. * Care Plan - Rochelle Xiong LPN - 07/06/2025 4:06 AM EDT Problem: Fall Injury Risk Goal: Absence of Fall and Fall-Related Injury Outcome: Ongoing, Progressing Problem: Skin Injury Risk Increased Goal: Skin Health and Integrity Outcome: Ongoing, Progressing Problem: Adult Inpatient Plan of Care Goal: Plan of Care Review Outcome: Ongoing, Progressing Flowsheets Taken 07/06/2025 0403 Progress: improving Outcome Evaluation: Patient will follow plan of care throughout shift Taken 07/05/2025 0504 Plan of Care Reviewed With: patient Goal: Patient-Specific Goal (Individualized) Outcome: Ongoing, Progressing Flowsheets (Taken 07/05/20251999) Patient/Family-Specific Goals (Include Timeframe): patient will remain free from harm for duration of shift Individualized Care Needs: safety Anxieties, Fears or Concerns: none stated Goal: Absence of Hospital-Acquired Illness or Injury Outcome: Ongoing, Progressing Intervention: Identify and Manage Fall Risk Flowsheets (Taken 07/06/2025 040) Safety Promotion/Fall Prevention: activity supervised Intervention: Prevent Skin Injury Flowsheets (Taken 07/06/2025399) Body Position: weight shifting Skin Protection: incontinence pads utilized Intervention: Prevent and Manage VTE (Venous Thromboembolism) Risk Flowsheets (Taken 07/06/2025 0400) VTE Prevention/Management: SCDs (sequential compression devices) off Intervention: Prevent Infection Flowsheets (Taken 07/06/2025399) Infection Prevention: hand hygiene promoted Goal: Optimal Comfort and Wellbeing Outcome: Ongoing, Progressing Intervention: Monitor Pain and Promote Comfort Flowsheets (Taken 07/06/2025 0400) Pain Management Interventions: medication (see MAR) Intervention: Provide Person-Centered Care Flowsheets (Taken 07/06/2025399) Trust Relationship/Rapport: care explained Problem: Acute Kidney Injury/Impairment Goal: Fluid and Electrolyte Balance Outcome: Ongoing, Progressing Intervention: Monitor and Manage Fluid and Electrolyte Balance Flowsheets (Taken 07/06/2025399) Fluid/Electrolyte Management: fluids restricted Goal: Improved Oral Intake Outcome: Ongoing, Progressing Intervention: Promote and Optimize Oral Intake Flowsheets (Taken 07/06/2025399) Oral Nutrition Promotion: rest periods promoted Nutrition Interventions: frequent small meals provided Goal: Effective Renal Function Outcome: Ongoing, Progressing Intervention: Monitor and Support Renal Function Flowsheets (Taken 07/06/2025 0400) Stabilization Measures: legs elevated Medication Review/Management: medications reviewed * Progress Notes - Venessa Brown - 07/05/2025 2:21 PM EDT Case Management Adult Progress Note Monika Ordaz 64 y.o. female CSN: [id number] Admission: 06/25/2025 2:14 PM Primary Problem: Acute kidney injury superimposed on stage 3b chronic kidney disease (CMS/HCC) Additional Comment JHONNY spoke with Ro Sánchez regarding pts SNF placement and Ro is able to offer pt a bed. Ro requested updated PT/OT notes in order to begin pts insurance precert. JHONNY spoke with pt, pts sister and pts mother at bedside. Pt is in agreement with going to the facility. JHONNY completed pts Living Will with pt and uploaded to pts chart. JHONNY sent updated PT/OT notes to [facility] to begin precert. JHONNY will continue to follow and assist. Venessa Brown * Progress Notes - Venessa Haro - 07/05/2025 2:08 PM EDT Occupational Therapy Treatment Patient Name: Monika Ordaz Today's Date: 07/05/2025 OT Discharge Recommendations: Home with 24 hour assistance, Home health PT, Home health OT Equipment Recommended: Patient owns appropriate equipment Subjective Pt pleasant and cooperative with treatment. Participants in Care Family/Caregiver Present: Yes Family/Caregiver: Mother, Other (Specify) (sister) Bench Assembler Battery: Not Applicable Presentation Oxygen Therapy: None (Room air) Lines and Tubes: Intravenous access Pre-Session: Supine, Head of bed elevated, Lines intact Pre-Session Comments: Bed alarm not in use upon entry for session. Post-Session: Lines intact, Call light in reach, Sitting: edge of bed Post-Session Comments: All needs met and within reach, CM at bedside. Precautions Medical Precautions: Fall precautions Objective Pain Pt complained of buttock pain from sitting in her bed. Therapist educated pt on changing positions in bed for pain management. Pt verbalized understanding. Delirium Screening RASS: Alert and calm Confusion Assessment Method-ICU (CAM-ICU/PCAM-ICU) Feature 1: Acute Onset or Fluctuating Course: Negative Feature 2: Inattention: Negative Feature 3: Altered Level of Consciousness: Negative Feature 4: Disorganized Thinking: Negative Overall CAM-ICU/PCAM-ICU: Negative Cognition Cognition Overall Cognitive Status: Within Functional Limits Arousal/Alertness: Appropriate responses to stimuli Mood/Behavior: Alert Orientation Level: Oriented X4 Single Step Commands: Consistently Multi-Step Commands: Consistently Method of Communication: Verbal Safety Judgment: Good awareness of safety precautions Awareness of Errors: Good awareness of errors made Deficit Awareness: Fully aware of deficits Attention Span: Appears intact Bed Mobility Bed Mobility Exam: Scooting/Bridging Level of [place]: Stand-by assist (to EOB) Physical/Nonphysical Assist: Supervision Assistive Device: Bed rails Bed Mobility Exam: Supine to Sit Level of [place]: Minimum assist (75% patient's effort) Physical/Nonphysical Assist: Supervision, HOB elevated, Minimal cues, Verbal Cues Assistive Device: Bed rails, Other (MANAGER OF INTERNAL) Transfers Transfer Exam: Sit to stand Level of [place]: Stand-by assist Physical/Nonphysical Assist: Supervision, Verbal Cues, Minimal cues Assistive Device: Rollator Transfer Exam: Stand to Sit Level of [place]: Stand-by assist Physical/Nonphysical Assist: Supervision, Verbal Cues, Minimal cues Assistive Device: Rollator Toilet Transfer Level of [place]: Stand-by assist Physical/Nonphysical Assist: Supervision, Minimal cues, Verbal Cues Type of Transfer: Ambulation, To toilet Assistive Device: Rollator Balance Postural Appearance Posture: Within Functional Limits Static Sitting Balance Static Sitting-Balance Support: Right upper extremity support, Left upper extremity support, Feet supported Static Sitting-Level of Assistance: Supervision Stating Sitting - Interventions: Analysis of sitting posture, balance, and tolerance in preparationfor completing LBD at EOB. Dynamic Sitting Balance Dynamic Sitting-Balance Support: Left upper extremity support, Feet supported, Right upper extremity support Dynamic Sitting-Balance: Lateral weight shifts, Anterior/Posterior weight shifts, Reaching for objects Level of Assistance: Supervision Dynamic Sitting - Interventions: Analysis of sitting posture, balance, and tolerance while completing LBD at EOB. Static Standing Balance Static Standing-Balance Support: Right upper extremity support, Left upper extremity support Static Standing-Level of Assistance: Standby assist Static Standing - Interventions: Rollator and analysis of standing tolerance, posture, and balance in preparation for completing grooming tasks in standing at the sink. Dynamic Standing Balance Dynamic Standing-Balance Support: Right upper extremity support, Left upper extremity support Dynamic Standing-Balance: Lateral weight shifts, Anterior/Posterior weight shifts Dynamic Standing Level of Assistance: Standby assist Dynamic Standing - Interventions: Rollator and analysis of standing tolerance, posture, and balancewhile completing clothing management standing in front of the toilet. Therapeutic Activity (12 minutes) Please refer to bed mobility, transfers and posture/balance sections for increased treatment details. Self-Care Interventions Self Care/Home Management (ADLs) Time Entry: 15 minutes Lower Extremity Dressing Sock Level of Assistance: Close supervision, Setup LE Dressing Where Assessed: Edge of bed LE Dressing Interventions: Pt utilized rollator for resting her LEs on the doff and don her socks. Pt stated she had difficulty at home donning her pull ups and pants. Therapist educated pt on the use of a supervisor train operations for ease of donning pull ups and pants. Pt stated, I never thought of that, and expressed interest in purchasing a supervisor train operations. Toileting Toileting Level of Assistance: SBA, Setup Where Assessed: Toilet Toileting Interventions: Verbal cues for navigating rollator in small spaces and for safety as pt ambulated with rollator backwards into the bathroom. Assessment Pt presents with decreased strength, activity tolerance, sitting and standing tolerance and balancewhich limits her participation in valued occupations and makes her a risk for falls. Pt tolerated 27 minutes of skilled OT treatment with no adverse events. Should 24 hour assistance not be availableto her at discharge, the OT recommends LTC for her safety and needs being met. Pt will benefit fromcontinued skilled OT treatment for increased ease of ADLs, functional mobility, and to decrease caregiver burden. OT Recommendations Discharge Destination: Home with 24 hour assistance, Home health PT, Home health OT Discharge Equipment: Patient owns appropriate equipment Plan Continue with POC. Goals OT GOAL DETAILS Goal Established Date Time Frame Goal Status OT Goal 1: Pt will complete balance activity for >10 min with SBA. 07/02/25 2 weeks OT Goal 2: Pt will complete LB dressing sitting at EOB with SBA and no rest breaks. 07/02/25 2 weeks OT Goal 3: Pt will complete endurance activity for >10 min with 1 rest break. 07/02/25 2 weeks OT Goal 4: Pt will complete all functional transfers at rollator level with SBA. 07/02/25 Written by Venessa Haro on 07/05/25 at 2:08 PM. * Assessment & Plan Note - Juliane Rodriguez - 07/05/2025 1:06 PM EDTAssociated Problem(s): Acute kidney injury superimposed on stage 3b chronic kidney disease (CMS/HCC) (Resolved 07/07/2025) - Completed albumin challenge on 07/03 - Creatinine improved to 1.25 from 1.32 (baseline 1.1-1.3) - Paracentesis with as needed thoracentesis scheduled for - Hgb levels increased from 7.9 to 8.0 PLAN - Continue to trend creatinine on daily CMP - Continue home lactulose, rifaximin, and ciprofloxacin - Monitor for signs of acute bleed stable at this time - Consult Hepatology if patient worsens - Continue midodrine 15mg TID - Continue daily vit D 1000 U - Strict I&O q4 - Renally dose medications and avoid nephrotoxic agents * Assessment & Plan Note - Juliane Rodriguez - 07/05/2025 1:06 PM EDTAssociated Problem(s): Chronic kidney disease, stage 3b (CMS/HCC) - Completed albumin challenge on 07/03 - Creatinine improved to 1.25 from 1.32 (baseline 1.1-1.3) - Paracentesis with as needed thoracentesis scheduled for - Hgb levels increased from 7.9 to 8.0 PLAN - Continue to trend creatinine on daily CMP - Continue home lactulose, rifaximin, and ciprofloxacin - Monitor for signs of acute bleed stable at this time - Consult Hepatology if patient worsens - Continue midodrine 15mg TID - Continue daily vit D 1000 U - Strict I&O q4 - Renally dose medications and avoid nephrotoxic agents * Assessment & Plan Note - Juliane Rodriguez - 07/05/2025 1:06 PM EDTAssociated Problem(s): Cirrhosis of liver with ascites (CMS/HCC) - Completed albumin challenge on 07/03 - Creatinine improved to 1.25 from 1.32 (baseline 1.1-1.3) - Paracentesis with as needed thoracentesis scheduled for - Hgb levels increased from 7.9 to 8.0 PLAN - Continue to trend creatinine on daily CMP - Continue home lactulose, rifaximin, and ciprofloxacin - Monitor for signs of acute bleed stable at this time - Consult Hepatology if patient worsens - Continue midodrine 15mg TID - Continue daily vit D 1000 U - Strict I&O q4 - Renally dose medications and avoid nephrotoxic agents * Assessment & Plan Note - Juliane Rodriguez - 07/05/2025 1:06 PM EDTAssociated Problem(s): Hx of spontaneous bacterial peritonitis - Completed albumin challenge on 07/03 - Creatinine improved to 1.25 from 1.32 (baseline 1.1-1.3) - Paracentesis with as needed thoracentesis scheduled for - Hgb levels increased from 7.9 to 8.0 PLAN - Continue to trend creatinine on daily CMP - Continue home lactulose, rifaximin, and ciprofloxacin - Monitor for signs of acute bleed stable at this time - Consult Hepatology if patient worsens - Continue midodrine 15mg TID - Continue daily vit D 1000 U - Strict I&O q4 - Renally dose medications and avoid nephrotoxic agents * Assessment & Plan Note - Juliane Rodriguez - 07/05/2025 1:06 PM EDTAssociated Problem(s): Pleural effusion associated with hepatic disorder - Completed albumin challenge on 07/03 - Creatinine improved to 1.25 from 1.32 (baseline 1.1-1.3) - Paracentesis with as needed thoracentesis scheduled for - Hgb levels increased from 7.9 to 8.0 PLAN - Continue to trend creatinine on daily CMP - Continue home lactulose, rifaximin, and ciprofloxacin - Monitor for signs of acute bleed stable at this time - Consult Hepatology if patient worsens - Continue midodrine 15mg TID - Continue daily vit D 1000 U - Strict I&O q4 - Renally dose medications and avoid nephrotoxic agents * Assessment & Plan Note - Juliane Rodriguez - 07/05/2025 1:06 PM EDTAssociated Problem(s): LLQ abdominal pain (Resolved 07/09/2025) - Completed albumin challenge on 07/03 - Creatinine improved to 1.25 from 1.32 (baseline 1.1-1.3) - Paracentesis with as needed thoracentesis scheduled for - Hgb levels increased from 7.9 to 8.0 PLAN - Continue to trend creatinine on daily CMP - Continue home lactulose, rifaximin, and ciprofloxacin - Monitor for signs of acute bleed stable at this time - Consult Hepatology if patient worsens - Continue midodrine 15mg TID - Continue daily vit D 1000 U - Strict I&O q4 - Renally dose medications and avoid nephrotoxic agents * Assessment & Plan Note - Juliane Rodriguez - 07/05/2025 1:06 PM EDTAssociated Problem(s): Vasovagal syncope (Resolved 07/09/2025) - Completed albumin challenge on 07/03 - Creatinine improved to 1.25 from 1.32 (baseline 1.1-1.3) - Paracentesis with as needed thoracentesis scheduled for - Hgb levels increased from 7.9 to 8.0 PLAN - Continue to trend creatinine on daily CMP - Continue home lactulose, rifaximin, and ciprofloxacin - Monitor for signs of acute bleed stable at this time - Consult Hepatology if patient worsens - Continue midodrine 15mg TID - Continue daily vit D 1000 U - Strict I&O q4 - Renally dose medications and avoid nephrotoxic agents * Assessment & Plan Note - Juliane Rodriguez - 07/05/2025 1:06 PM EDTAssociated Problem(s): Pancytopenia - WBC 2.91 (baseline 4.0) with 1.84 absolute neutrophils - RBC 2.55 (baseline 3.0), platelets 46 (baseline 55) - Stable overall PLAN - Continue to monitor - Continue Heparin for DVT prophylaxis - Rheumatology referral outpatient - Patient is listed as neutropenic per hospital protocol, she will NOT need neutropenic precautionsat LTC outside of the hospital. * Assessment & Plan Note - Juliane Rodriguez - 07/05/2025 1:06 PM EDTAssociated Problem(s): Type 2 diabetes mellitus, with long-term current use of insulin ([facility]) - Glucose 147 PLAN - Continue Glargine 24 U daily + resistant SSI - Continue to monitor glucose trends * Assessment & Plan Note - Juliane Rodriguez - 07/05/2025 1:06 PM EDTAssociated Problem(s): Diabetic peripheral neuropathy ([facility]) - Glucose 147 PLAN - Continue Glargine 24 U daily + resistant SSI - Continue to monitor glucose trends * Progress Notes - Fredy Otero - 07/05/2025 11:38 AM EDT Physical Therapy Treatment Patient Name: Monika Ordaz Today's Date: 07/05/2025 PT Discharge Recommendations: Home with 24 hour assistance, Home health PT, Home health OT Equipment Recommended: Patient owns appropriate equipment Subjective Pt agreeable to session. States that her abdominal pain feels improved today but that she is getting bored being in the hospital. Participants in Care Family/Caregiver Present: Yes Family/Caregiver: Mother, Other (Specify) (Sister) Bench Assembler Battery: Not Applicable Presentation Oxygen Therapy: None (Room air) Lines and Tubes: Intravenous access Pre-Session: Supine, Head of bed elevated, Lines intact Pre-Session Comments: Bed alarm not in use upon entry for session. Post-Session: Supine, Head of bed elevated, Lines intact, RN notified, Call light in reach Post-Session Comments: All needs met and within reach, pt's family at bedside. Precautions Medical Precautions: Fall precautions Objective Pain No pain reported. Delirium Screening RASS: Alert and calm Confusion Assessment Method-ICU (CAM-ICU/PCAM-ICU) Feature 3: Altered Level of Consciousness: Negative Bed Mobility Bed Mobility Exam: Scooting/Bridging Level of [place]: Stand-by assist Physical/Nonphysical Assist: Supervision Assistive Device: Bed rails Bed Mobility Exam: Supine to Sit Level of [place]: Stand-by assist Physical/Nonphysical Assist: Supervision, HOB elevated Assistive Device: Bed rails Bed Mobility Exam: Sit to Supine Level of [place]: Stand-by assist Physical/Nonphysical Assist: Supervision, Verbal Cues, HOB elevated, Minimal cues Assistive Device: Bed rails Transfers Transfer Exam: Sit to stand Level of [place]: Stand-by assist Physical/Nonphysical Assist: Supervision, Verbal Cues, Minimal cues Assistive Device: Rollator Transfer Exam: Stand to Sit Level of [place]: Stand-by assist Physical/Nonphysical Assist: Supervision, Verbal Cues, Minimal cues Assistive Device: Rollator Balance Static Sitting Balance Static Sitting-Balance Support: Right upper extremity support, Left upper extremity support, Feet supported Static Sitting-Level of Assistance: Supervision Dynamic Sitting Balance Dynamic Sitting-Balance Support: Right upper extremity support, Left upper extremity support, Feet supported Dynamic Sitting-Balance: Lateral weight shifts, Anterior/Posterior weight shifts Level of Assistance: Supervision Static Standing Balance Static Standing-Balance Support: Right upper extremity support, Left upper extremity support Static Standing-Level of Assistance: Standby assist Dynamic Standing Balance Dynamic Standing-Balance Support: Right upper extremity support, Left upper extremity support Dynamic Standing-Balance: Lateral weight shifts, Anterior/Posterior weight shifts Dynamic Standing Level of Assistance: Standby assist Therapeutic Activity (9 minutes) Cueing provided for safe hand placement, increased knee flexion, and anterior weight shifting for greater independence with transfers. Pt tolerated 3 minutes of static and dynamic standing activity (reaching across midline, focus on upright posture) to prep for gait training. Education provided regarding importance of asking nurses to amb with her in hallway as often as possible with use of her rollator (which was brought in from home for her to use while admitted) to reduce unwanted deconditioning while IP, pt verbalized her understanding. Gait Training (15 minutes) Device: Rollator Assistance: Standby assist Distance: 150', 150' Gait Analysis: Narrow LISSETT, shuffling gait speed, flexed posture with downward gaze. No overt LOB noted, 1x seated rest break on rollator d/t fatigue. Gait Training Interventions: Cueing for increased step length and gait speed, upright posture, rollator management. Assessment Pt continues to make progress towards established PT goals, she demonstrated the ability to amb 300ft in total today with SBA for safety and use of her rollator from home. Should pt not have 24 hour assistance available to her at discharge she may benefit from LTC in order to have her needs better met. Pt continues to display deficits in overall strength and endurance with prolonged standing activ ity, she will continue to benefit from skilled PT while IP in order to address impairments and facilitate the highest level of independence with mobility possible. PT Recommendations Discharge Destination: Home with 24 hour assistance, Home health PT, Home health OT Discharge Equipment: Patient owns appropriate equipment Plan Continue PT POC. PT Goals PT GOAL DETAILS Goal Established Date Time Frame Goal Status PT Goal 1: Pt will demonstrate the ability to perform transfers with SBA and LRAD 07/02/25 2 weeks PT Goal 2: Pt will demonstrate the ability to amb 300ft with SBA and LRAD 07/02/25 2 weeks PT Goal 3: Pt will demonstrate the ability to tolerate 15 minutes in total of static/dynamic standing activity with SBA and LRAD 07/02/25 2 weeks Written by Fredy Otero on 07/05/25 at 12:34 PM. * Care Plan - Shawna Sarah - 07/05/2025 10:18 AM EDT Problem: Fall Injury Risk Goal: Absence of Fall and Fall-Related Injury Outcome: Ongoing, Progressing Problem: Skin Injury Risk Increased Goal: Skin Health and Integrity Outcome: Ongoing, Progressing Problem: Adult Inpatient Plan of Care Goal: Plan of Care Review Outcome: Ongoing, Progressing Flowsheets (Taken 07/05/2025 0504 by Rochelle Xiong LPN) Progress: improving Plan of Care Reviewed With: patient Goal: Patient-Specific Goal (Individualized) Outcome: Ongoing, Progressing Flowsheets (Taken 07/05/2025 0800) Patient/Family-Specific Goals (Include Timeframe): pt will remain free from falls this shift Individualized Care Needs: care ongoing Anxieties, Fears or Concerns: none expressed Goal: Absence of Hospital-Acquired Illness or Injury Outcome: Ongoing, Progressing Intervention: Identify and Manage Fall Risk Flowsheets (Taken 07/05/2025 020 by Rochelle Xiong LPN) Safety Promotion/Fall Prevention: activity supervised assistive device/personal items within reach clutter-free environment maintained fall prevention program maintained lighting adjusted mobility aid in reach nonskid shoes/slippers when out of bed Intervention: Prevent Skin Injury Flowsheets (Taken 07/05/2025 020 by Rochelle Xiong LPN) Body Position: weight shifting Skin Protection: incontinence pads utilized Intervention: Prevent and Manage VTE (Venous Thromboembolism) Risk Flowsheets (Taken 07/05/2025 0400 by Rochelle Xiong LPN) VTE Prevention/Management: education provided Intervention: Prevent Infection Flowsheets (Taken 07/05/2025 1017) Infection Prevention: hand hygiene promoted environmental surveillance performed rest/sleep promoted single patient room provided Goal: Optimal Comfort and Wellbeing Outcome: Ongoing, Progressing Intervention: Provide Person-Centered Care Flowsheets (Taken 07/05/2025 020 by Rochelle Xiong LPN) Trust Relationship/Rapport: care explained choices provided emotional support provided empathic listening provided questions answered questions encouraged reassurance provided thoughts/feelings acknowledged Problem: Acute Kidney Injury/Impairment Goal: Fluid and Electrolyte Balance Outcome: Ongoing, Progressing Goal: Improved Oral Intake Outcome: Ongoing, Progressing Intervention: Promote and Optimize Oral Intake Flowsheets (Taken 07/05/2025 020 by Rochelle Xiong LPN) Oral Nutrition Promotion: rest periods promoted Nutrition Interventions: frequent small meals provided Goal: Effective Renal Function Outcome: Ongoing, Progressing Intervention: Monitor and Support Renal Function Flowsheets (Taken 07/05/2025199 by Rochelle Xiong LPN) Stabilization Measures: legs elevated Medication Review/Management: medications reviewed * Assessment & Plan Note - Juliane Rodriguez - 07/05/2025 9:17 AM EDTAssociated Problem(s): Hypomagnesemia (Resolved 07/09/2025) - Mg 1.8 overnight PLAN - Continue magnesium oxide 400 mg daily - Check Levels Daily * Assessment & Plan Note - Juliane Rodriguez - 07/05/2025 8:28 AM EDTAssociated Problem(s): Physical debility - Patient at this time has elected to pursue [facility] placement and would like to speak with palliative care to learn more about their services - SW working to find LTC facility placement - palliative consulted PLAN - Delirium protocols - Continue Up to Chair TID, q4 turns - Ongoing GOC discussions * Assessment & Plan Note - Juliane Rodriguez - 07/05/2025 8:28 AM EDTAssociated Problem(s): Self-care deficit - Patient at this time has elected to pursue [facility] placement and would like to speak with palliative care to learn more about their services - SW working to find LTC facility placement - palliative consulted PLAN - Delirium protocols - Continue Up to Chair TID, q4 turns - Ongoing GOC discussions * Assessment & Plan Note - Juliane Rodriguez - 07/05/2025 8:28 AM EDTAssociated Problem(s): 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 - Patient at this time has elected to pursue [facility] placement and would like to speak with palliative care to learn more about their services - SW working to find LTC facility placement - palliative consulted PLAN - Delirium protocols - Continue Up to Chair TID, q4 turns - Ongoing GOC discussions * Assessment & Plan Note - Juliane Rodriguez - 07/05/2025 8:28 AM EDTAssociated Problem(s): Dysphagia - Reflux stable PLAN - Continue to hold omeprazole * Assessment & Plan Note - Juliane Rodriguez - 07/05/2025 8:28 AM EDTAssociated Problem(s): Heartburn - Reflux stable PLAN - Continue to hold omeprazole * Assessment & Plan Note - Juliane Rodriguez - 07/05/2025 8:28 AM EDTAssociated Problem(s): Serum ammonia increased (CMS/HCC) - Last ammonia stable at 61 on 06/30 PLAN - Continue home Lactulose - Recheck ammonia if neurologic change suspected * Assessment & Plan Note - Juliane Rodriguez - 07/05/2025 8:28 AM EDTAssociated Problem(s): Chronic obstructive pulmonary disease (CMS/HCC) - Chronic; on home BiPAP, per RT recs * Assessment & Plan Note - Juliane Rodriguez - 07/05/2025 8:28 AM EDTAssociated Problem(s): JONATHAN treated with BiPAP - Chronic; on home BiPAP, per RT recs * Assessment & Plan Note - Juliane Rodriguez - 07/05/2025 8:28 AM EDTAssociated Problem(s): 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 Subjective Monika Ordaz is a 64 y.o. female who was seen and evaluated on 07/05/2025. Currently on [facility] Hospital Day: 11. Overnight, she received a lidocaine patch for back pain. This AM: Patient is feeling better after yesterday's paracentesis. She slept well overnight. Abdominal pain and distention have improved significantly after paracentesis yesterday. She has been drinking plenty of fluids. She has a diminished appetite but that is typical for her. Denies nausea, vomiting, diarrhea, constipation, fever, chills, chest pain, shortness of breath, and confusion. Patient reports that she feels a lump on the left side of her neck that has been present for years.It has not changed in size. Denies pain. Review of Systems Additional review of systems negative except per HPI. Objective Visit Vitals BP (!) 101/45 (BP Location: Right arm, Patient Position: Lying) Pulse 61 Temp 36.7 ??C (98.1 ??F) (Oral) Resp 16 Ht 1.651 m (5' 5 ) Wt 80.5 kg (177 lb 7.5 oz) SpO2 96% BMI 29.53 kg/m?? OB Status Postmenopausal Smoking Status Never BSA 1.92 m?? Physical Exam Constitutional: General: She is not in acute distress. Appearance: Normal appearance. She is not ill-appearing or diaphoretic. HENT: Head: Normocephalic and atraumatic. Right Ear: External ear normal. Left Ear: External ear normal. Nose: Nose normal. Mouth/Throat: Mouth: Mucous membranes are moist. Eyes: General: No scleral icterus. Extraocular Movements: Extraocular movements intact. Cardiovascular: Rate and Rhythm: Normal rate and regular rhythm. Pulses: Normal pulses. Radial pulses are 2+ on the right side and 2+ on the left side. Posterior tibial pulses are 2+ on the right side and 2+ on the left side. Pulmonary: Effort: Pulmonary effort is normal. Breath sounds: Normal breath sounds. Abdominal: General: There is no distension. Palpations: Abdomen is soft. Tenderness: There is no abdominal tenderness. Musculoskeletal: Cervical back: Normal range of motion. Right lower leg: No edema. Left lower leg: No edema. Skin: General: Skin is warm and dry. Coloration: Skin is not jaundiced. Neurological: Mental Status: She is alert. Psychiatric: Mood and Affect: Mood normal. Behavior: Behavior normal. Labs and cultures: Reviewed and significant for WBC 2.91, RBC 2.55, Hgb increased to 8, Plt 46, Absneutrophils increased to 1.84, Abs lymphocytes 0.53, Mg stable at 1.8, Gluc 147, BUN stable at 28, Cr decreased to 1.25, T bili 3.1, PT 24, and INR 2.1. Pleural fluid culture showed no growth at day 1. Peritoneal/Abdominal/Ascites fluid culture showed no growth at day 1. Imaging/diagnostic studies: Reviewed and significant for CXR showing decreased R pleural effusion, Technically successful US-guided paracentesis and right thoracentesis showed small to moderate volume ascites and a moderate right pleural fluid. A total of 1.5 liters of clear dark yellow fluid was removed from the abdomen. A total of 1.6 liters of serosanguinous fluid was removed from the right posterior pleural space. Assessment/Plan Assessment: Monika Ordaz is a 64 y.o. 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 Currently, the patient's condition is good based on improving Cr levels but debility and severe livercirrhosis. Assessment & Plan Acute kidney injury superimposed on stage 3b chronic kidney disease (CMS/HCC) Chronic kidney disease, stage 3b (CMS/HCC) Cirrhosis of liver with ascites (CMS/HCC) Hx of spontaneous bacterial peritonitis Pleural effusion associated with hepatic disorder LLQ abdominal pain Vasovagal syncope - Completed albumin challenge on 07/03 - Creatinine improved to 1.25 from 1.32 (baseline 1.1-1.3) - Paracentesis with as needed thoracentesis scheduled for - Hgb levels increased from 7.9 to 8.0 PLAN - Continue to trend creatinine on daily CMP - Continue home lactulose, rifaximin, and ciprofloxacin - Monitor for signs of acute bleed stable at this time - Consult Hepatology if patient worsens - Continue midodrine 15mg TID - Continue daily vit D 1000 U - Strict I&O q4 - Renally dose medications and avoid nephrotoxic agents Pancytopenia - WBC 2.91 (baseline 4.0) with 1.84 absolute neutrophils - RBC 2.55 (baseline 3.0), platelets 46 (baseline 55) - Stable overall PLAN - Continue to monitor - Continue Heparin for DVT prophylaxis - Rheumatology referral outpatient - Patient is listed as neutropenic per hospital protocol, she will NOT need neutropenic precautionsat LTC outside of the hospital. 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 - Patient at this time has elected to pursue [facility] placement and would like to speak with palliative care to learn more about their services - SW working to find LTC facility placement - palliative consulted PLAN - Delirium protocols - Continue Up to Chair TID, q4 turns - Ongoing GOC discussions Type 2 diabetes mellitus, with long-term current use of insulin ([facility]) Diabetic peripheral neuropathy ([facility]) - Glucose 147 PLAN - Continue Glargine 24 U daily + resistant SSI - Continue to monitor glucose trends Dysphagia Heartburn - Reflux stable PLAN - Continue to hold omeprazole Serum ammonia increased ([facility]) - Last ammonia stable at 61 on 06/30 PLAN - Continue home Lactulose - Recheck ammonia if neurologic change suspected Hypomagnesemia - Mg 1.8 overnight PLAN - Continue magnesium oxide 400 mg daily - Check Levels Daily Chronic obstructive pulmonary disease (CMS/HCC) JONATHAN treated with BiPAP - Chronic; on home BiPAP, per RT recs 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 (CMS/HCC) Hyperlipidemia - Chronic; Continue to hold Crestor Obesity (BMI 30.0-34.9) - Chronic; Complicates all aspects of care Resolved Hospital Problems: - CARLOTTA F: PO E: Monitor and replace as necessary N: Adult diet Diet texture: Regular; Carbohydrate restriction: Consistent Carb 2 (80 gm max/meal); Sodium restriction: 2,000 mg Na GI: no PPI DVT prophylaxis: Heparin Lines and Tubes: pIV CODE: Full Code SOCIAL: Currently lives alone, sister assists with medications, lives an hour away PT/OT: recommendations: home with home health (however, patient has elected to go to LTC facility) Consultants: PT/OT, Nutrition, Hepatology, Nephrology, IR, Transplant Disposition: Medically Ready for Discharge:Ready Now [] LTC placement Juliane Rodriguez, MS4 Cosigned by Fabiana Cunningham MD at 07/06/2025 3:28 PM EDT Associated attestation - Fabiana Cunningham MD - 07/06/2025 3:28 PM EDT I saw and evaluated the patient with the medical student. I discussed the case with the medical student and agree with the findings and plan as documented. I personally performed the Exam and MedicalDecision Making. Fabiana Cunningham MD * Care Plan - Rochelle Xiong LPN - 07/05/2025 5:08 AM EDT Problem: Fall Injury Risk Goal: Absence of Fall and Fall-Related Injury 07/05/2025 0507 by Rochelle Xiong LPN Outcome: Ongoing, Progressing 07/05/2025208 by Rochelle Xiong LPN Outcome: Ongoing, Not Progressing Intervention: Identify and Manage Contributors Flowsheets (Taken 07/05/2025199) Medication Review/Management: medications reviewed Self-Care Promotion: independence encouraged Intervention: Promote Injury-Free Environment Flowsheets (Taken 07/05/2025199) Safety Promotion/Fall Prevention: activity supervised assistive device/personal items within reach clutter-free environment maintained fall prevention program maintained lighting adjusted mobility aid in reach nonskid shoes/slippers when out of bed Problem: Skin Injury Risk Increased Goal: Skin Health and Integrity 07/05/2025506 by Rochelle Xiong LPN Outcome: Ongoing, Progressing 07/05/2025208 by Rochelle Xiong LPN Outcome: Ongoing, Not Progressing Intervention: Optimize Skin Protection Flowsheets (Taken 07/05/2025199) Activity Management: activity adjusted per tolerance Pressure Reduction Techniques: frequent weight shift encouraged Pressure Reduction Devices: positioning supports utilized Skin Protection: incontinence pads utilized Head of Bed (HOB) Positioning: HOB elevated Intervention: Promote and Optimize Oral Intake Flowsheets (Taken 07/05/2025199) Oral Nutrition Promotion: rest periods promoted Nutrition Interventions: frequent small meals provided Problem: Adult Inpatient Plan of Care Goal: Plan of Care Review 07/05/2025506 by Rochelle Xiong LPN Outcome: Ongoing, Progressing Flowsheets (Taken 07/05/2025503) Progress: improving Plan of Care Reviewed With: patient 07/05/2025208 by Rochelle Xiong LPN Outcome: Ongoing, Not Progressing Goal: Patient-Specific Goal (Individualized) 07/05/2025506 by Rochelle Xiong LPN Outcome: Ongoing, Progressing Flowsheets (Taken 07/04/20251999) Patient/Family-Specific Goals (Include Timeframe): patient will achieve self stated pain goal at any point during shift Individualized Care Needs: pain relief Anxieties, Fears or Concerns: pain 07/05/2025208 by Rochelle Xiong LPN Outcome: Ongoing, Not Progressing Goal: Absence of Hospital-Acquired Illness or Injury 07/05/2025506 by Rochelle Xiong LPN Outcome: Ongoing, Progressing 07/05/2025208 by Rochelle Xiong LPN Outcome: Ongoing, Not Progressing Intervention: Identify and Manage Fall Risk Flowsheets (Taken 07/05/2025199) Safety Promotion/Fall Prevention: activity supervised assistive device/personal items within reach clutter-free environment maintained fall prevention program maintained lighting adjusted mobility aid in reach nonskid shoes/slippers when out of bed Intervention: Prevent Skin Injury Flowsheets (Taken 07/05/2025199) Body Position: weight shifting Skin Protection: incontinence pads utilized Intervention: Prevent and Manage VTE (Venous Thromboembolism) Risk Flowsheets (Taken 07/05/2025199) VTE Prevention/Management: SCDs (sequential compression devices) off education provided Intervention: Prevent Infection Flowsheets (Taken 07/05/2025199) Infection Prevention: rest/sleep promoted Goal: Optimal Comfort and Wellbeing 07/05/2025506 by Rochelle Xiong LPN Outcome: Ongoing, Progressing 07/05/2025208 by Rochelle Xiong LPN Outcome: Ongoing, Not Progressing Intervention: Monitor Pain and Promote Comfort Flowsheets (Taken 07/05/2025199) Pain Management Interventions: medication (see MAR) Intervention: Provide Person-Centered Care Flowsheets (Taken 07/05/2025199) Trust Relationship/Rapport: care explained choices provided emotional support provided empathic listening provided questions answered questions encouraged reassurance provided thoughts/feelings acknowledged Problem: Acute Kidney Injury/Impairment Goal: Fluid and Electrolyte Balance 07/05/2025506 by Rochelle Xiong LPN Outcome: Ongoing, Progressing 07/05/2025208 by Rochelel Xiong LPN Outcome: Ongoing, Not Progressing Intervention: Monitor and Manage Fluid and Electrolyte Balance Flowsheets (Taken 07/05/2025199) Fluid/Electrolyte Management: fluids restricted Goal: Improved Oral Intake 07/05/2025506 by Rochelle Xiong LPN Outcome: Ongoing, Progressing 07/05/2025208 by Rochelle Xiong LPN Outcome: Ongoing, Not Progressing Intervention: Promote and Optimize Oral Intake Flowsheets (Taken 07/05/2025199) Oral Nutrition Promotion: rest periods promoted Nutrition Interventions: frequent small meals provided Goal: Effective Renal Function 07/05/2025 0507 by Rochelle Xiong LPN Outcome: Ongoing, Progressing 07/05/2025 0209 by Rochelle Xiong LPN Outcome: Ongoing, Not Progressing Intervention: Monitor and Support Renal Function Flowsheets (Taken 07/05/2025 0200) Stabilization Measures: legs elevated Medication Review/Management: medications reviewed * Care Plan - Karen Guzman RN - 07/04/2025 3:57 PM EDT Problem: Fall Injury Risk Goal: Absence of Fall and Fall-Related Injury Outcome: Ongoing, Progressing Intervention: Identify and Manage Contributors Flowsheets (Taken 07/04/2025 1556) Medication Review/Management: medications reviewed Self-Care Promotion: independence encouraged Intervention: Promote Injury-Free Environment Flowsheets (Taken 07/04/2025 1556) Safety Promotion/Fall Prevention: activity supervised Problem: Skin Injury Risk Increased Goal: Skin Health and Integrity Outcome: Ongoing, Progressing Intervention: Optimize Skin Protection Flowsheets (Taken 07/04/2025 1556) Activity Management: up in chair Skin Protection: transparent dressing maintained Head of Bed (HOB) Positioning: HOB elevated Intervention: Promote and Optimize Oral Intake Flowsheets (Taken 07/04/2025 1556) Oral Nutrition Promotion: adaptive equipment use encouraged Nutrition Interventions: food preferences provided Problem: Adult Inpatient Plan of Care Goal: Plan of Care Review Outcome: Ongoing, Progressing Goal: Patient-Specific Goal (Individualized) Outcome: Ongoing, Progressing Goal: Absence of Hospital-Acquired Illness or Injury Outcome: Ongoing, Progressing Intervention: Identify and Manage Fall Risk Flowsheets (Taken 07/04/2025 1556) Safety Promotion/Fall Prevention: activity supervised Intervention: Prevent Skin Injury Flowsheets (Taken 07/04/2025 1556) Body Position: weight shifting Skin Protection: transparent dressing maintained Intervention: Prevent and Manage VTE (Venous Thromboembolism) Risk Flowsheets (Taken 07/04/2025 1556) VTE Prevention/Management: medication Intervention: Prevent Infection Flowsheets (Taken 07/04/2025 1556) Infection Prevention: hand hygiene promoted Goal: Optimal Comfort and Wellbeing Outcome: Ongoing, Progressing Intervention: Monitor Pain and Promote Comfort Flowsheets (Taken 07/04/2025 155) Pain Management Interventions: pain management plan reviewed with patient/caregiver Intervention: Provide Person-Centered Care Flowsheets (Taken 07/04/2025 155) Trust Relationship/Rapport: care explained Problem: Acute Kidney Injury/Impairment Goal: Fluid and Electrolyte Balance Outcome: Ongoing, Progressing Intervention: Monitor and Manage Fluid and Electrolyte Balance Flowsheets (Taken 07/04/2025 1556) Fluid/Electrolyte Management: fluids restricted Goal: Improved Oral Intake Outcome: Ongoing, Progressing Intervention: Promote and Optimize Oral Intake Flowsheets (Taken 07/04/2025 1556) Oral Nutrition Promotion: adaptive equipment use encouraged Nutrition Interventions: food preferences provided Goal: Effective Renal Function Outcome: Ongoing, Progressing Intervention: Monitor and Support Renal Function Flowsheets (Taken 07/04/2025 155) Stabilization Measures: legs elevated Medication Review/Management: medications reviewed * Assessment & Plan Note - Rebekah Segura MD - 07/04/2025 3:19 PM EDT Associated Problem(s): Pancytopenia - WBC 2.46 (baseline 4.0) with 1.4 absolute neutrophils - RBC 2.55 (baseline 3.0), platelets 39 (baseline 55) - Stable overall PLAN - Continue to monitor - Continue Heparin for DVT prophylaxis - Rheumatology referral outpatient - Patient is listed as neutropenic per hospital protocol, she will NOT need neutropenic precautionsat LTC outside of the hospital. * Post-Procedure Note - Maria Dolores Ontiveros APRN, DNP - 07/04/2025 2:03 PM EDT Vascular and Interventional Radiology Brief Postprocedure Note Provider: Maria Dolores Ontiveros APRN Pre-operative Diagnosis: Ascites Right pleural effusion Post-operative Diagnosis: Same Type of Anesthesia: Local Description of Findings: See PACS Technical/Surgical Procedures Used: US guided abdominal paracentesis US guided right thoracentesis Specimen Obtained: Yes, ascites fluid and right pleural fluid Complications: None Estimated Blood Loss: None See detailed result report with images in PACS. The patient tolerated the procedure well without incident or complication and is in stable condition. * Clinician Note - Adrienne Murrieta - 07/04/2025 1:06 PM EDT Occupational Therapy Attempt Patient Name: Monika Ordaz Today's Date: 07/04/2025 Patient was attempted to be seen by occupational therapy 07/04/2025 for OT Treatment however patientoff the floor. Occupational therapy team will follow-up when patient is available. Written by Adrienne Murrieta on 07/04/25 at 1:06 PM. * Progress Notes - Venessa Brown - 07/04/2025 12:45 PM EDT Case Management Adult Progress Note Monika Ordaz 64 y.o. female CSN: [id number] Admission: 06/25/2025 2:14 PM Primary Problem: Acute kidney injury superimposed on stage 3b chronic kidney disease (CMS/HCC) Additional Comments SW met with the Family Medicine team to discuss pts POC. Pt currently has home with 24 hours assistance recommendations. Pt lives alone and does not have anyone who can act as her caregiver at this time. Pt met with the transplant team and palliative team yesterday. Pt is aware that she will not beeligible to be listed on the transplant list if she goes to LTC. Pt does not feel comfortable goinghome due to having a hard time doing her ADLs and being confused at times regarding medications andhow to use her phone. [facility] has sent out referrals for LTC. Pt would prefer to be near [place] due to her mother and sister being in [place]. SW will continue to follow and assist. Venessa Brown * Assessment & Plan Note - Rebekah Segura MD - 07/04/2025 11:12 AM EDT Associated Problem(s): Acute kidney injury superimposed on stage 3b chronic kidney disease (CMS/HCC) (Resolved 07/07/2025) - Completed albumin challenge on 07/03 - Creatinine improved to 1.32 from 1.53 (baseline 1.1-1.3) - Paracentesis with as needed thoracentesis scheduled for 07/03 HgB levels dropped from 8.3 to 7.9, but remained stable on 07/04 so likely dilutional PLAN - paracentesis & thoracentesis today, f/u labs - Continue to trend creatinine on daily CMP - Continue home lactulose, rifaximin, and ciprofloxacin - Monitor for signs of acute bleed stable at this time - Consult Hepatology if patient worsens - Continue midodrine 15mg TID - Continue daily vit D 1000 U - Strict I&O q4 - Renally dose medications and avoid nephrotoxic agents * Assessment & Plan Note - Rebekah Segura MD - 07/04/2025 11:12 AM EDT Associated Problem(s): Chronic kidney disease, stage 3b (CMS/HCC) - Completed albumin challenge on 07/03 - Creatinine improved to 1.32 from 1.53 (baseline 1.1-1.3) - Paracentesis with as needed thoracentesis scheduled for - 07/03 HgB levels dropped from 8.3 to 7.9, but remained stable on 07/04 so likely dilutional PLAN - paracentesis & thoracentesis today, f/u labs - Continue to trend creatinine on daily CMP - Continue home lactulose, rifaximin, and ciprofloxacin - Monitor for signs of acute bleed stable at this time - Consult Hepatology if patient worsens - Continue midodrine 15mg TID - Continue daily vit D 1000 U - Strict I&O q4 - Renally dose medications and avoid nephrotoxic agents * Assessment & Plan Note - Rebekah Segura MD - 07/04/2025 11:12 AM EDT Associated Problem(s): Cirrhosis of liver with ascites (CMS/HCC) - Completed albumin challenge on 07/03 - Creatinine improved to 1.32 from 1.53 (baseline 1.1-1.3) - Paracentesis with as needed thoracentesis scheduled for - 07/03 HgB levels dropped from 8.3 to 7.9, but remained stable on 07/04 so likely dilutional PLAN - paracentesis & thoracentesis today, f/u labs - Continue to trend creatinine on daily CMP - Continue home lactulose, rifaximin, and ciprofloxacin - Monitor for signs of acute bleed stable at this time - Consult Hepatology if patient worsens - Continue midodrine 15mg TID - Continue daily vit D 1000 U - Strict I&O q4 - Renally dose medications and avoid nephrotoxic agents * Assessment & Plan Note - Rebekah Segura MD - 07/04/2025 11:12 AM EDT Associated Problem(s): Hx of spontaneous bacterial peritonitis - Completed albumin challenge on 07/03 - Creatinine improved to 1.32 from 1.53 (baseline 1.1-1.3) - Paracentesis with as needed thoracentesis scheduled for 07/03 HgB levels dropped from 8.3 to 7.9, but remained stable on 07/04 so likely dilutional PLAN - paracentesis & thoracentesis today, f/u labs - Continue to trend creatinine on daily CMP - Continue home lactulose, rifaximin, and ciprofloxacin - Monitor for signs of acute bleed stable at this time - Consult Hepatology if patient worsens - Continue midodrine 15mg TID - Continue daily vit D 1000 U - Strict I&O q4 - Renally dose medications and avoid nephrotoxic agents * Assessment & Plan Note - Rebekah Segura MD - 07/04/2025 11:12 AM EDT Associated Problem(s): Pleural effusion associated with hepatic disorder - Completed albumin challenge on 07/03 - Creatinine improved to 1.32 from 1.53 (baseline 1.1-1.3) - Paracentesis with as needed thoracentesis scheduled for - 07/03 HgB levels dropped from 8.3 to 7.9, but remained stable on 07/04 so likely dilutional PLAN - paracentesis & thoracentesis today, f/u labs - Continue to trend creatinine on daily CMP - Continue home lactulose, rifaximin, and ciprofloxacin - Monitor for signs of acute bleed stable at this time - Consult Hepatology if patient worsens - Continue midodrine 15mg TID - Continue daily vit D 1000 U - Strict I&O q4 - Renally dose medications and avoid nephrotoxic agents * Assessment & Plan Note - Rebekah Segura MD - 07/04/2025 11:12 AM EDT Associated Problem(s): LLQ abdominal pain (Resolved 07/09/2025) - Completed albumin challenge on 07/03 - Creatinine improved to 1.32 from 1.53 (baseline 1.1-1.3) - Paracentesis with as needed thoracentesis scheduled for - 07/03 HgB levels dropped from 8.3 to 7.9, but remained stable on 07/04 so likely dilutional PLAN - paracentesis & thoracentesis today, f/u labs - Continue to trend creatinine on daily CMP - Continue home lactulose, rifaximin, and ciprofloxacin - Monitor for signs of acute bleed stable at this time - Consult Hepatology if patient worsens - Continue midodrine 15mg TID - Continue daily vit D 1000 U - Strict I&O q4 - Renally dose medications and avoid nephrotoxic agents * Assessment & Plan Note - Rebekah Segura MD - 07/04/2025 11:12 AM EDT Associated Problem(s): Vasovagal syncope (Resolved 07/09/2025) - Completed albumin challenge on 07/03 - Creatinine improved to 1.32 from 1.53 (baseline 1.1-1.3) - Paracentesis with as needed thoracentesis scheduled for - 07/03 HgB levels dropped from 8.3 to 7.9, but remained stable on 07/04 so likely dilutional PLAN - paracentesis & thoracentesis today, f/u labs - Continue to trend creatinine on daily CMP - Continue home lactulose, rifaximin, and ciprofloxacin - Monitor for signs of acute bleed stable at this time - Consult Hepatology if patient worsens - Continue midodrine 15mg TID - Continue daily vit D 1000 U - Strict I&O q4 - Renally dose medications and avoid nephrotoxic agents * Clinician Note - Fredy Otero - 07/04/2025 9:46 AM EDT Physical Therapy Attempt Patient Name: Monika Ordaz Today's Date: 07/04/2025 Patient was attempted to be seen by physical therapy 07/04/2025 for PT Treatment however patient offthe floor. Physical therapy team will follow-up as schedule permits. Written by Fredy Otero on 07/04/25 at 2:04 PM. * Assessment & Plan Note - Rebekah Segura MD - 07/04/2025 9:28 AM EDT Associated Problem(s): Physical debility - Patient at this time has elected to pursue [facility] placement and would like to speak with palliative care to learn more about their services - SW working to find LTC facility placement - palliative consulted PLAN - Delirium protocols - Continue Up to Chair TID, q4 turns - Ongoing GOC discussions * Assessment & Plan Note - Rebekah Segura MD - 07/04/2025 9:28 AM EDT Associated Problem(s): Self-care deficit - Patient at this time has elected to pursue [facility] Pract[facility] placement and would like to speak with palliative care to learn more about their services - SW working to find LTC facility placement - palliative consulted PLAN - Delirium protocols - Continue Up to Chair TID, q4 turns - Ongoing GOC discussions * Assessment & Plan Note - Rebekah Segura MD - 07/04/2025 9:28 AM EDT Associated Problem(s): 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 - Patient at this time has elected to pursue [facility] Pract[facility] placement and would like to speak with palliative care to learn more about their services - SW working to find LTC facility placement - palliative consulted PLAN - Delirium protocols - Continue Up to Chair TID, q4 turns - Ongoing GOC discussions * Assessment & Plan Note - Rebekah Segura MD - 07/04/2025 9:28 AM EDT Associated Problem(s): Type 2 diabetes mellitus, with long-term current use of insulin ([facility]) - Last POCT glucose 103 PLAN - Continue Glargine 24 U daily + resistant SSI - Continue to monitor glucose trends * Assessment & Plan Note - Rebekah Segura MD - 07/04/2025 9:28 AM EDT Associated Problem(s): Diabetic peripheral neuropathy ([facility]) - Last POCT glucose 103 PLAN - Continue Glargine 24 U daily + resistant SSI - Continue to monitor glucose trends * Assessment & Plan Note - Rebekah Segura MD - 07/04/2025 9:28 AM EDT Associated Problem(s): Dysphagia - Reflux stable PLAN - Continue to hold omeprazole * Assessment & Plan Note - Rebekah Segura MD - 07/04/2025 9:28 AM EDT Associated Problem(s): Heartburn - Reflux stable PLAN - Continue to hold omeprazole * Assessment & Plan Note - Rebekah Segura MD - 07/04/2025 9:28 AM EDT Associated Problem(s): Serum ammonia increased ([facility]) - Last ammonia stable at 61 on 06/30 PLAN - Continue home Lactulose - Recheck ammonia if neurologic change suspected * Assessment & Plan Note - Rebekah Segura MD - 07/04/2025 9:28 AM EDT Associated Problem(s): Hypomagnesemia (Resolved 07/09/2025) - Mg 1.8 overnight and was replaced with an additional dose of PO magnesium 400mg PLAN - Continue magnesium oxide 400 mg daily - Check Levels Daily * Assessment & Plan Note - Rebekah Segura MD - 07/04/2025 9:28 AM EDT Associated Problem(s): Chronic obstructive pulmonary disease ([facility]) - Chronic; on home BiPAP, per RT recs * Assessment & Plan Note - Rebekah Segura MD - 07/04/2025 9:28 AM EDT Associated Problem(s): JONATHAN treated with BiPAP - Chronic; on home BiPAP, per RT recs * Assessment & Plan Note - Rebekah Segura MD - 07/04/2025 9:28 AM EDT Associated Problem(s): 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 Date of Visit: July 04, 2025 Requesting Service: Fabiana Cunningham MD Chief Complaint: Abnormal lab History of Present Illness: Monika Ordaz is a 64 y.o. 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 She is presenting to on 06/25/25from Nephrology clinic with concern for CARLOTTA and inability to care for self. She was already scheduled as outpatient for thoracentesis and paracentesis on 07/04/25. She presentstoday for thoracentesis and paracentesis. History and admission information obtained from chart review of primary and consulting teams notation , as well as speaking directly to consulting team. The following portions of the chart were reviewed this encounter and updated as appropriate: Review of Systems: 14 point ROS negative of symptoms except for listed above in HPI. Past Medical History Pertinent Negatives[1] Surgical History[2] Social History[3] Family History: Personally reviewed and noncontributory. Allergies[4] Objective: All laboratory, images, tracings, and vital sign data are personally reviewed unless otherwise noted. VITALS: Temp: [36.5 ??C (97.7 ??F)-37.1 ??C (98.7 ??F)] 36.5 ??C (97.7 ??F) Heart Rate: [55-97] 59 Resp: [12-19] 19 BP: (92-116)/(51-64) 100/51 Weight: 79.8 kg (176 lb) Body mass index is 28.1 kg/m??. I & O SUMMARY I/O last 3 completed shifts: In: 700 (9.1 mL/kg) [IV Piggyback:700] Out: 700 (9.1 mL/kg) [Urine:700 (0.3 mL/kg/hr)] Weight: 76.6 kg I/O this shift: In: - Out: 400 [Urine:400] MEDICATIONS: Current Medications[5] LABS (PAST 18Labs in last 18 hours) CBC WBC 2.46 (L) Hb 7.9 (L) Plt 39 (L) Hct 23.8 (L) INR 2.1 (H) PTT ?? Anti-Xa ?? BMP Na 138 Cl 112 (H) BUN 28 (H) Glu 111 (H) K 4.1 Co2 16 (L) Cr 1.32 (H) Ca 8.7 (L) Mg 1.8 (L) Phos 3.4 Lactate ?? LFT AST 31 AlkPhos 139 T Prot 6.2 (L) ALK 14 Bili 3.1 (H) Alb ?? D.Bili ?? HOURS) EXAM: GENERAL: No acute distress EYES: No scleral icterus or conjunctivitis HENT: Atraumatic, normocephalic RESP/CHEST: Symmetric expansion; non labored. CARD: regular rate and rhythm Extremities: No edema, no cyanosis or clubbing. Pedal pulses palpable +2. GI: No organomegaly or masses. Soft, Nontender, distended. SKIN: No rash, sores, lesions or subcutaneous nodules. NEURO: Alert Radiographics/Diagnostics: Imaging personally reviewed and reviewed with attending. === 06/23/25 === CT [facility] OUTSIDE IMAGES === 06/25/25 === XR CHEST 1 VIEW - Narrative - CLINICAL INDICATION: hx of pleural effusion, SOA TECHNIQUE: XR CHEST 1 VIEW COMPARISON: 06/20/2025. FINDINGS: New medium-sized right pleural effusion. New right lower and middle lobe opacities. No pneumothorax. Decreased lung volumes with vascular crowding; cardiac silhouette and mediastinal contours are stable within these confines. - Impression - New medium-sized right pleural effusion. New right lower and middle lobe opacities may represent atelectasis, however superimposed infection cannot definitely be excluded. CRITICAL RESULT: No. COMMUNICATION: Per this written report. Drafted by Nory Singh MD on 06/25/2025 4:08 PM Final report signed by Nory Singh MD on 06/25/2025 4:12 PM Assessment & Plan: Decompensated cirrhosis, MASH Ascites Hepatic hydrothorax EV MELD 3.0: 22 at 07/04/2025 4:47 AM MELD-Na: 22 at 07/04/2025 4:47 AM Calculated from: Serum Creatinine: 1.32 mg/dL at 07/04/2025 4:47 AM Serum Sodium: 138 mmol/L (Using max of 137 mmol/L) at 07/04/2025 4:47 AM Total Bilirubin: 3.1 mg/dL at 07/04/2025 4:47 AM Serum Albumin: 3.8 g/dL (Using max of 3.5 g/dL) at 07/04/2025 4:47 AM INR(ratio): 2.1 at 07/04/2025 4:47 AM Age at listin years Sex: Female at 07/04/2025 4:47 AM - HCC: No identified liver lesions on last imaging, 04/2025. AFP 4 = 05/07/25. 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 - HE: history of encephalopathy requiring intubation. Lactulose at home. - Ascites/hepatic hydrothorax: 7-10 days paracentesis/thoracentesis. - Right thoracentesis with 1.4 L removed, Paracentesis with 3 L removed - Difficulty with titration of diuretics due to kidney function - VSS, Afebrile CARLOTTA on CKD III - Creatinine 1.53 with baseline 1.1-1.3 - Nephrology following PLAN: - Will perform paracentesis and right thoracentesis today Thank you for allowing us to participate in the care of this patient. Maria Dolores Ontiveros, BRAND SPECIALIST, DNP Interventional Radiology [phone] [1] Past Medical History: Diagnosis Date ADHD (attention deficit hyperactivity disorder) Allergic Anxiety disorder, unspecified Anxiety Bleeding gums Blood in urine Cataract Chronic kidney disease Cirrhosis (CMS/HCC) Colon cancer screening 09/20/2019 Added automatically from request for surgery [id number] Coronary artery disease Depression 1995 Diabetes mellitus type 2 in obese 04/22/2015 Diabetic nephropathy (CMS/HCC) Dry mouth Epigastric pain 08/02/2019 ETD (eustachian tube dysfunction) 07/13/2018 GERD (gastroesophageal reflux disease) Headache Heart murmur Hepatic encephalopathy (CMS/HCC) 10/14/2024 HL (hearing loss) Hypoparathyroidism Inflammatory bowel disease Irritable bowel syndrome Jaw pain Obesity Osteoporosis Other ascites 01/22/2025 Peptic ulceration Personal history of other diseases [...] 1979 BLADDER SURGERY N/A Bladder surgery from [facility] BREAST BIOPSY 2011 BREAST SURGERY 2010 BUNIONECTOMY Right CATARACT EXTRACTION Bilateral 2016 CHOLECYSTECTOMY 1979 ESOPHAGOGASTRODUODENOSCOPY HYSTERECTOMY N/A Hysterectomy from [facility] KNEE SURGERY Bilateral ORAL SURGERY N/A Oral surgery from [facility] OTHER SURGICAL HISTORY 2015 ROOT CANAL WISDOM TOOTH EXTRACTION [3] Social History Tobacco Use Smoking status: Never Passive exposure: Never Smokeless tobacco: Never Vaping Use Vaping status: Never Used Substance Use Topics Alcohol use: Not Currently Drug use: Never [4] No Known Allergies [5] Current Facility-Administered Medications: albumin human 25 % infusion 12.5 g, 12.5 g, Intravenous, q15 min PRN, Marianna Gordon N, BRAND SPECIALIST benzonatate (Tessalon) capsule 100 mg, 100 mg, Oral, TID PRN, Veronica Del Valle K, DO bisacodyl (Dulcolax) suppository 10 mg, 10 mg, Rectal, Daily PRN, Siri Eaton MD calcitriol (Rocaltrol) capsule 0.25 mcg, 0.25 mcg, Oral, Daily, Blayne Ordaz, DO, 0.25 mcg at 07/03/25 0935 calcium carbonate (Tums) chewable tablet 750 mg, 750 mg, Oral, Daily, Blayne Ordaz DO, 750 mg at07/03/25 0935 capsaicin (Zostrix) 0.025 % cream, , Topical, BID PRN, Blayne Ordaz DO cetirizine (ZyrTEC) tablet 10 mg, 10 mg, Oral, Daily, Blayne Ordaz DO, 10 mg at 07/03/25 0935 cholecalciferol (Vitamin D-3) tablet 1,000 Units, 1,000 Units, Oral, Daily, Blayne Ordaz DO, 1,000 Units at 07/03/25 09 ciprofloxacin (Cipro) tablet 500 mg, 500 mg, Oral, Daily, Blayne Ordaz, , 500 mg at 07/03/25 0935 glucose (Glutose) 40 % oral gel 15-30 grams of glucose, 15-30 grams of glucose, Sublingual, q15 minPRN OR dextrose 10 % (D10W) bolus 125 mL, 125 mL, Intravenous, q15 min PRN OR dextrose 10 %(D10W) bolus 250 mL, 250 mL, Intravenous, q15 min PRN OR glucagon (human recombinant) injection1 mg, 1 mg, Intramuscular, q15 min PRN, Blayne Ordaz DO [Held by provider] heparin (porcine) injection 5,000 Units, 5,000 Units, Subcutaneous, q12h, Irvin Ball MD, 5,000 Units at 07/03/25 0934 insulin glargine-yfgn 100 UNIT/ML injection 24 Units, 24 Units, Subcutaneous, Daily, Blayne Ordaz DO, 24 Units at 07/03/25 0936 insulin lispro (Admelog) 100 units/mL injection - Correction - Resistant Dose, 0-10 Units, Subcutaneous, TID with meals, Blayne Ordaz DO, 4 Units at 07/03/25 1315 insulin lispro (Admelog) injection - Correction - Nighttime Dose, 0-3 Units, Subcutaneous, Twice atnight, Blayne Ordaz DO lactulose (Chronulac) 10 GM/15ML solution 20 g, 20 g, Oral, TID, Blayne Ordaz, , 20 g at 07/03/25 214 lidocaine 1% in sodium bicarbonate (buffered lidocaine)10 mL, 10 mL, Infiltration, Once, Maria Dolores Ontiveros APRN, DNP magnesium oxide (Mag-Ox) tablet 400 mg, 400 mg, Oral, Daily, Blayne Ordaz S, DO, 400 mg at 142 midodrine (Proamatine) tablet 15 mg, 15 mg, Oral, TID, Dayne Medel, DO, 15 mg at 07/04/25 0904 prochlorperazine (Compazine) tablet 5 mg, 5 mg, Oral, q6h PRN, Irvin Ball MD, 5 mg at 07/03/25 1330 rifAXIMin (Xifaxan) tablet 550 mg, 550 mg, Oral, BID, Blayne Ordaz S, DO, 550 mg at 07/03/25 2142 [COMPLETED] Insert peripheral IV, , , Once AND [COMPLETED] Saline lock IV, , , Once AND sodium chloride 0.9 % flush 10 mL, 10 mL, Intravenous, q12h, 10 mL at 07/03/25 1004 AND sodium chloride 0.9 % flush 10 mL, 10 mL, Intravenous, PRN, Blayne Ordaz S, DO Insert peripheral IV, , , Once AND Saline lock IV, , , Once AND sodium chloride 0.9 % flush10 mL, 10 mL, Intravenous, q12h, 10 mL at 07/03/25 0015 AND sodium chloride 0.9 % flush 10 mL, 10 mL, Intravenous, PRN, Maria Dolores Ontiveros APRN, DNP Insert peripheral IV, , , Once AND Saline lock IV, , , Once AND sodium chloride 0.9 % flush10 mL, 10 mL, Intravenous, q12h AND sodium chloride 0.9 % flush 10 mL, 10 mL, Intravenous, PRN,Maria Dolores Ontiveros APRN, DNP * Progress Notes - Rebekah Segura MD - 07/04/2025 8:56 AM EDT FAMILY MEDICINE Daily Progress Note Patient: Monika Ordaz 64 y.o. Subjective Monika Janet Ordaz is a 64 y.o. female who was seen and evaluated on 07/04/2025. Currently on HospitalDay Hospital Day: 10. Overnight, patient had increased abdominal pain. Tylenol improved pain. KUB showed concern for ileus and CXR showed increase right pleural effusion. Patient was made NPO. This AM: Patient reports that overall she feels well and is much better than last night. She reports her pain is 1/10 this morning and almost nonexistent. She says her abdominal pain improved aftershe had a bowel movement and flatus last night, and she had another bowel movement this morning. She got Simethicone and Tylenol last night which she reports improved pain as well. She says her abdomen is not as distended as it usual is when it's time for her paracentesis. She reports she slept well. She is alert and oriented. Review of Systems Additional review of systems negative except per HPI. Objective Visit Vitals BP 108/63 (BP Location: Right arm, Patient Position: Lying) Pulse 72 Temp 36.8 ??C (98.3 ??F) (Oral) Resp 16 Ht 1.651 m (5' 5 ) Wt 76.6 kg (168 lb 14 oz) SpO2 97% BMI 28.10 kg/m?? OB Status Postmenopausal Smoking Status Never BSA 1.87 m?? Physical Exam Constitutional: General: She is not in acute distress. Appearance: Normal appearance. HENT: Head: Normocephalic and atraumatic. Eyes: Extraocular Movements: Extraocular movements intact. Conjunctiva/sclera: Conjunctivae normal. Pulmonary: Effort: Pulmonary effort is normal. No respiratory distress. Abdominal: General: There is distension. Neurological: General: No focal deficit present. Mental Status: She is alert and oriented to person, place, and time. Psychiatric: Mood and Affect: Mood normal. Behavior: Behavior normal. Thought Content: Thought content normal. Labs and cultures: Reviewed and significant for - Hgb 7.09, Creatinine 1.32 (from 1.53) Imaging/diagnostic studies: Reviewed and significant for - XR CHEST 1 VIEW 07/03 IMPRESSION: Increased right effusion and right lung opacities. Dilatation of small and large bowel loops by gas suggestive of ileus XR ABDOMEN 1 VIEW 07/03 IMPRESSION: Increased right effusion and right lung opacities. Dilatation of small and large bowel loops by gas suggestive of ileus Assessment/Plan Assessment: Monika Ordaz is a 64 y.o. female with PMH COPD, CKD stage 3b, CAD, T2DM with diabetic neuropathy, dysphagia, obesity, JONATHAN, HLD, cirrhosis with ascites, esophageal varices, portal HTN,IBS C/D, Rheumatoid Arthritis with positive Rf, and SLE admitted on 06/25/2025 for CARLOTTA in the settingof Cirrhosis with Ascites now on Hospital Day: 10 requiring ongoing hospitalization for CARLOTTA and Debility . Currently, the patient's condition is good based on improving Cr levels indicating likely response to albumin challenge though with severe cirrhosis of the liver and overall debility. Assessment & Plan Acute kidney injury superimposed on stage 3b chronic kidney disease (CMS/HCC) Chronic kidney disease, stage 3b (CMS/HCC) Cirrhosis of liver with ascites (CMS/HCC) Hx of spontaneous bacterial peritonitis Pleural effusion associated with hepatic disorder LLQ abdominal pain Vasovagal syncope - Completed albumin challenge on 07/03 - Creatinine improved to 1.32 from 1.53 (baseline 1.1-1.3) - Paracentesis with as needed thoracentesis scheduled for - 07/03 HgB levels dropped from 8.3 to 7.9, but remained stable on 07/04 so likely dilutional PLAN - paracentesis & thoracentesis today, f/u labs - Continue to trend creatinine on daily CMP - Continue home lactulose, rifaximin, and ciprofloxacin - Monitor for signs of acute bleed stable at this time - Consult Hepatology if patient worsens - Continue midodrine 15mg TID - Continue daily vit D 1000 U - Strict I&O q4 - Renally dose medications and avoid nephrotoxic agents Pancytopenia - WBC 2.46 (baseline 4.0) with 1.4 absolute neutrophils - RBC 2.55 (baseline 3.0), platelets 39 (baseline 55) - Stable overall PLAN - Continue to monitor - Continue Heparin for DVT prophylaxis - Rheumatology referral outpatient - Patient is listed as neutropenic per hospital protocol, she will NOT need neutropenic precautionsat LTC outside of the hospital. 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 - Patient at this time has elected to pursue [facility] placement and would like to speak with palliative care to learn more about their services - SW working to find LTC facility placement - palliative consulted PLAN - Delirium protocols - Continue Up to Chair TID, q4 turns - Ongoing GOC discussions Type 2 diabetes mellitus, with long-term current use of insulin (CMS/HCC) Diabetic peripheral neuropathy (CMS/HCC) - Last POCT glucose 103 PLAN - Continue Glargine 24 U daily + resistant SSI - Continue to monitor glucose trends Dysphagia Heartburn - Reflux stable PLAN - Continue to hold omeprazole Serum ammonia increased (CMS/HCC) - Last ammonia stable at 61 on 06/30 PLAN - Continue home Lactulose - Recheck ammonia if neurologic change suspected Hypomagnesemia - Mg 1.8 overnight and was replaced with an additional dose of PO magnesium 400mg PLAN - Continue magnesium oxide 400 mg daily - Check Levels Daily Chronic obstructive pulmonary disease (CMS/HCC) JONATHAN treated with BiPAP - Chronic; on home BiPAP, per RT recs 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 (CMS/HCC) Hyperlipidemia - Chronic; Continue to hold Crestor Obesity (BMI 30.0-34.9) - Chronic; Complicates all aspects of care F: PO E: Monitor and replace as necessary N: NPO diet GI: no PPI DVT prophylaxis: Heparin Lines and Tubes: PIV CODE: Full Code SOCIAL: Currently lives alone sister assists with medications, lives an hour away PT/OT: home w/ home health (however, patient has elected to go to LTC facility) Consultants: PTOT, Nutrition, Hepatology, Nephrology, IR Transplant Disposition: Medically Ready for Discharge:Anticipated in 2-4 Days [ ] CARLOTTA [ ] LTC Placement Rebekah Segura MD Psychiatry, PGY-1 [facility] Cosigned by Fabiana Cunningham MD at 07/05/2025 11:09 AM EDT Associated attestation - Fabiana Cunningham MD - 07/05/2025 11:09 AM EDT I saw and evaluated the patient with the resident/fellow. I discussed the case with the resident/fellow and agree with the findings and plan as documented. Fabiana Cunningham MD * Care Plan - Bia Carrillo - 07/04/2025 3:25 AM EDT Problem: Fall Injury Risk Goal: Absence of Fall and Fall-Related Injury Outcome: Ongoing, Progressing Intervention: Identify and Manage Contributors Flowsheets (Taken 07/04/2025 020) Medication Review/Management: medications reviewed Self-Care Promotion: independence encouraged Intervention: Promote Injury-Free Environment Flowsheets (Taken 07/04/2025 020) Safety Promotion/Fall Prevention: activity supervised assistive device/personal items within reach clutter-free environment maintained fall prevention program maintained lighting adjusted mobility aid in reach nonskid shoes/slippers when out of bed room organization consistent safety round/check completed toileting scheduled Problem: Skin Injury Risk Increased Goal: Skin Health and Integrity Outcome: Ongoing, Progressing Intervention: Optimize Skin Protection Flowsheets Taken 07/04/2025199 Pressure Reduction Techniques: frequent weight shift encouraged Pressure Reduction Devices: positioning supports utilized Skin Protection: incontinence pads utilized Head of Bed (HOB) Positioning: HOB elevated Taken 07/03/20252044 Activity Management: activity adjusted per tolerance Intervention: Promote and Optimize Oral Intake Flowsheets (Taken 07/04/2025199) Oral Nutrition Promotion: rest periods promoted Nutrition Interventions: frequent small meals provided Problem: Adult Inpatient Plan of Care Goal: Plan of Care Review Outcome: Ongoing, Progressing Flowsheets (Taken 07/04/2025 0323) Progress: improving Plan of Care Reviewed With: patient Goal: Patient-Specific Goal (Individualized) Outcome: Ongoing, Progressing Flowsheets (Taken 07/03/20252044) Patient/Family-Specific Goals (Include Timeframe): pt will remain free from falls and injury duringshift Individualized Care Needs: safety Anxieties, Fears or Concerns: none stated Goal: Absence of Hospital-Acquired Illness or Injury Outcome: Ongoing, Progressing Intervention: Identify and Manage Fall Risk Flowsheets (Taken 07/04/2025 020) Safety Promotion/Fall Prevention: activity supervised assistive device/personal items within reach clutter-free environment maintained fall prevention program maintained lighting adjusted mobility aid in reach nonskid shoes/slippers when out of bed room organization consistent safety round/check completed toileting scheduled Intervention: Prevent Skin Injury Flowsheets Taken 07/04/2025199 Skin Protection: incontinence pads utilized Taken 07/03/20252044 Body Position: weight shifting Intervention: Prevent and Manage VTE (Venous Thromboembolism) Risk Flowsheets (Taken 07/03/20252044) VTE Prevention/Management: medication Intervention: Prevent Infection Flowsheets (Taken 07/04/2025199) Infection Prevention: rest/sleep promoted hand hygiene promoted Goal: Optimal Comfort and Wellbeing Outcome: Ongoing, Progressing Intervention: Monitor Pain and Promote Comfort Flowsheets (Taken 07/04/2025199) Pain Management Interventions: declines Intervention: Provide Person-Centered Care Flowsheets (Taken 07/04/2025199) Trust Relationship/Rapport: care explained choices provided Problem: Acute Kidney Injury/Impairment Goal: Fluid and Electrolyte Balance Outcome: Ongoing, Progressing Intervention: Monitor and Manage Fluid and Electrolyte Balance Flowsheets (Taken 07/04/2025199) Fluid/Electrolyte Management: fluids provided Goal: Improved Oral Intake Outcome: Ongoing, Progressing Intervention: Promote and Optimize Oral Intake Flowsheets (Taken 07/04/2025199) Oral Nutrition Promotion: rest periods promoted Nutrition Interventions: frequent small meals provided Goal: Effective Renal Function Outcome: Ongoing, Progressing Intervention: Monitor and Support Renal Function Flowsheets (Taken 07/04/2025199) Stabilization Measures: legs elevated Medication Review/Management: medications reviewed * Care Plan - Alta Cage RN - 07/03/2025 6:47 PM EDT Problem: Fall Injury Risk Goal: Absence of Fall and Fall-Related Injury Outcome: Ongoing, Progressing Intervention: Identify and Manage Contributors Flowsheets (Taken 07/03/20251844) Medication Review/Management: medications reviewed Self-Care Promotion: independence encouraged Intervention: Promote Injury-Free Environment Flowsheets (Taken 07/03/20251844) Safety Promotion/Fall Prevention: activity supervised clutter-free environment maintained fall prevention program maintained Problem: Skin Injury Risk Increased Goal: Skin Health and Integrity Outcome: Ongoing, Progressing Intervention: Optimize Skin Protection Flowsheets (Taken 07/03/20251844) Activity Management: activity adjusted per tolerance activity encouraged Pressure Reduction Devices: pressure-redistributing mattress utilized Skin Protection: incontinence pads utilized Head of Bed (HOB) Positioning: HOB elevated Intervention: Promote and Optimize Oral Intake Flowsheets (Taken 07/03/20251844) Oral Nutrition Promotion: rest periods promoted Nutrition Interventions: food preferences provided Problem: Adult Inpatient Plan of Care Goal: Plan of Care Review Outcome: Ongoing, Progressing Goal: Patient-Specific Goal (Individualized) Outcome: Ongoing, Progressing Goal: Absence of Hospital-Acquired Illness or Injury Outcome: Ongoing, Progressing Intervention: Identify and Manage Fall Risk Flowsheets (Taken 07/03/20251844) Safety Promotion/Fall Prevention: activity supervised clutter-free environment maintained fall prevention program maintained Intervention: Prevent Skin Injury Flowsheets (Taken 07/03/2025 184) Body Position: turned Skin Protection: incontinence pads utilized Intervention: Prevent and Manage VTE (Venous Thromboembolism) Risk Flowsheets (Taken 07/03/20251844) VTE Prevention/Management: SCDs (sequential compression devices) off medication Intervention: Prevent Infection Flowsheets (Taken 07/03/20251844) Infection Prevention: hand hygiene promoted Goal: Optimal Comfort and Wellbeing Outcome: Ongoing, Progressing Intervention: Monitor Pain and Promote Comfort Flowsheets (Taken 07/03/20251844) Pain Management Interventions: medication (see MAR) Intervention: Provide Person-Centered Care Flowsheets (Taken 07/03/20251844) Trust Relationship/Rapport: care explained choices provided emotional support provided Problem: Acute Kidney Injury/Impairment Goal: Fluid and Electrolyte Balance Outcome: Ongoing, Progressing Intervention: Monitor and Manage Fluid and Electrolyte Balance Flowsheets (Taken 07/03/20251844) Fluid/Electrolyte Management: fluids provided Goal: Improved Oral Intake Outcome: Ongoing, Progressing Intervention: Promote and Optimize Oral Intake Flowsheets (Taken 07/03/2025 184) Oral Nutrition Promotion: rest periods promoted Nutrition Interventions: food preferences provided Goal: Effective Renal Function Outcome: Ongoing, Progressing Intervention: Monitor and Support Renal Function Flowsheets (Taken 07/03/2025 184) Stabilization Measures: legs elevated Medication Review/Management: medications reviewed * Clinician Note - Fabiana Cunningham MD - 07/03/2025 5:59 PM EDT Called to see patient for increased abdominal pain. She reports that pain began 30 minutes ago and is unlike pain she has had previously. She identifies the pain as being epigastric and extending down toward the umbilicus in a wide band as well as extending to the left in a wide band toward the flank. Pain is sharp and throbbing in nature and is worsened with movement, especially turning onto herright side. She has also tried to sit up more but says that makes the pain worse as well. In any situation she is finding it more difficult to breathe. This pain does seem to be described in the palliative care note from 1314 today though not with the severity she is describing now. Patient did eata small amount of her dinner just prior to the pain increasing. She is not complaining of nausea and she had a bowel movement this morning. On exam, CV: RRR, no m/r/g Resp: CTAB as apices and lateraly, could not perform respiratory exam posteriorly Abd: Soft, protuberant, tender to palpation more in LLQ, epigastrium, RUQ, no rebound, no guarding Patient is scheduled for paracentesis and thoracentesis tomorrow, 07/04. Will check chest xay and abdominal xray. Can have acetaminophen for pain as ordered. Added a single dose of simethicone as well. Can reassess for increased need for pain medications. Fabiana Cunningham MD * Consults - Kandice Romano APRN - 07/03/2025 1:15 PM EDTAssociated Order(s): IP CONSULT TO PALLIATIVE CARE Reason For Consult: Assistance with clarification of goals of care PC operations team leader(s) at this encounter: Nurse Practitioner Requesting Service: FM History Of Present Illness Monika Ordaz is a 64 y.o. female presenting with PMH COPD, CKD stage 3b, CAD, T2DM with diabetic neuropathy, dysphagia, obesity, JONATHAN, HLD, cirrhosis with ascites, esophageal varices, portal HTN, IBS C/D, Rheumatoid Arthritis with positive Rf, and SLE admitted on 06/25/2025 for CARLOTTA on CKD in the setting of cirrhosis with ascites and inability for self care. Medical/Surgical/Social/Family History Past Medical History[1] Surgical History[2] Social History[3] Family History[4] Code Status at Initial Consult Full Code Review of Systems: Review of Systems Constitutional: Positive for activity change, appetite change and fatigue. Gastrointestinal: Positive for abdominal distention and abdominal pain. Unless otherwise listed all systems negative except as per HPI or Assessment and Plan. Physical Exam Physical Exam Constitutional: General: She is not in acute distress. HENT: Head: Normocephalic. Nose: Nose normal. Eyes: General: No scleral icterus. Conjunctiva/sclera: Conjunctivae normal. Cardiovascular: Rate and Rhythm: Normal rate and regular rhythm. Pulses: Normal pulses. Heart sounds: Normal heart sounds. Pulmonary: Effort: Pulmonary effort is normal. No respiratory distress. Breath sounds: No wheezing or rhonchi. Abdominal: General: There is distension. Palpations: Abdomen is soft. Tenderness: There is no abdominal tenderness. There is no guarding or rebound. Comments: Patient endorses some mild discomfort in the epigastrum and LLQ on palpation near usual paracentesis site. Musculoskeletal: Right lower leg: No edema. Left lower leg: No edema. Skin: General: Skin is warm. Capillary Refill: Capillary refill takes 2 to 3 seconds. Neurological: General: No focal deficit present. Mental Status: She is alert and oriented to person, place, and time. Mental status is at baseline. Vitals Blood pressure 105/61, pulse 60, temperature 36.7 ??C (98 ??F), resp. rate 16, height 1.651 m (5' 5 ), weight 77.7 kg (171 lb 3.2 oz), SpO2 96%, not currently . Results Review I have reviewed the latest lab and imaging results. Last 24 hours: Vitals Visit Vitals BP 105/61 Pulse 60 Temp 36.7 ??C (98 ??F) Ht 1.651 m (5' 5 ) Wt 77.7 kg (171 lb 3.2 oz) SpO2 96% BMI 28.49 kg/m?? Intake/Output Summary (Last 24 hours) at 07/03/2025 1316 Last data filed at 07/03/2025 0743 Gross per 24 hour Intake -- Output 300 ml Net -300 ml Net IO Since Admission: -3,180 mL [07/03/25 1316] Labs and Imaging Labs in last 18 hours CBC WBC 2.60 (L) Hb 7.9 (L) Plt 43 (L) Hct 23.6 (L) ANC 1.58 (L) INR 2.0 (H), PTT ??, Anti-Xa ?? BMP Na 141 Cl 111 (H) BUN 32 (H) Glu 148 (H) K 4.3 Co2 19 (L) Cr 1.53 (H) Ca 8.7 (L) iCa ?? Mg 2.0, Phos 3.3 Lactate ?? LFT AST 36 (H) AlkPhos 164 (H) T Prot 6.2 (L) ALK 19 Bili 2.9 (H) Alb ?? D.Bili ?? CXR: ECG: Echo, Adult Transthoracic Complete Result Date: 10/17/2024 [...] is no recent study available for direct [id number] comparison. TECHNIQUE: Multiple axial CT images were obtained [...] vasculature is normal in caliber and patent. IMPRESSION: Focal Hepatic Observations: LI-RADS Negative Portal hypertension as evidenced by splenomegaly, portosystemic collaterals, subperitoneal space edema, portal colopathy and moderate volume ascites. Medications Current Scheduled Medications[5] Current PRN Medications[6] Palliative Care Actions Goals of care meeting, Treatment preferences discussed, and Advanced care planning conversation Assessment & Plan Acute kidney injury superimposed on stage 3b chronic kidney disease (CMS/HCC) Chronic obstructive pulmonary disease (CMS/HCC) Chronic kidney disease, stage 3b (CMS/HCC) 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 (CMS/HCC) Diabetic peripheral neuropathy (CMS/HCC) Dysphagia Heartburn Obesity (BMI 30.0-34.9) JONATHAN treated with BiPAP Physical debility Lupus (systemic lupus erythematosus) (CMS/HCC) Hyperlipidemia Type 2 diabetes mellitus, with long-term current use of insulin (CMS/HCC) Cirrhosis of liver with ascites (CMS/HCC) Hx of spontaneous bacterial peritonitis Pleural effusion associated with hepatic disorder LLQ abdominal pain Self-care deficit CARLOTTA (acute kidney injury) (CMS/HCC) Pancytopenia Hypomagnesemia Serum ammonia increased (CMS/HCC) 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 female with PMH COPD, CKD stage 3b, CAD, T2DM with diabetic neuropathy, dysphagia, obesity, JONATHAN, HLD, cirrhosis with ascites, esophageal varices, portal HTN, IBS C/D, Rheumatoid Arthritis with positive Rf, and SLE admitted on 06/25/2025 for CARLOTTA in the setting of Cirrhosis with Ascites . Patient has decided to come off the transplant list and wishes to proceed with LTC and NH placementwith her inability to care for her self. Met with patient at bedside, introduced palliative care and the nature of our visits. She shares how the last few months has really taken a toll on her with weekly paracentesis, weakening status, andmultiple appointments. She also worries that as she worsens and has acute events that her sister isnot able to get her to and from the hospital as needed. Monika shares that she is still interested in coming back and forth to the hospital, seeking care, treating things that are reversible . She also wishes to continue visits with her liver team. We discussed the recommendation for DNR in the setting of her end stage liver disease. She acknowledges that this would be in line with her wishes and understands the rational. She is taking time to think over decisions. She notes that her son Viral would be her Primary HCS and her sister Lj would be secondary. She does have two sons, one she has no contact with. She wishes to proceed with NH placement in either [place] or [place] to be close to her sisterand her friends. She is interested in completing Living will and HCS while here. Has several questions regarding selling property and her insurance. - [employer] to complete living will -Will contact Case management Number and complexity of problems addressed is high, including acute illness or injury that poses athreat to life or bodily function. Risk of complications and/or morbidity or mortality of patient management is high due to need for hospitalization for stabilization and care. Palliative and Supportive Care Kandice Juan Antonio [employer] SPECIALIST # [phone] or Secure chat [1] Past Medical History: Diagnosis Date ADHD (attention deficit hyperactivity disorder) Allergic Anxiety disorder, unspecified Anxiety Bleeding gums Blood in urine Cataract Chronic kidney disease Cirrhosis (CMS/HCC) Colon cancer screening 09/20/2019 Added automatically from request for surgery [id number] Coronary artery disease Depression 1996 Diabetes mellitus [...] 1979 BLADDER SURGERY N/A Bladder surgery from [facility] BREAST BIOPSY 2011 BREAST SURGERY 2010 BUNIONECTOMY Right CATARACT EXTRACTION Bilateral 2016 CHOLECYSTECTOMY 1980 ESOPHAGOGASTRODUODENOSCOPY HYSTERECTOMY N/A Hysterectomy from [facility] KNEE SURGERY Bilateral ORAL SURGERY N/A Oral surgery from [facility] OTHER SURGICAL HISTORY 2015 ROOT CANAL WISDOM TOOTH EXTRACTION [3] Social History Tobacco Use Smoking status: Never Passive exposure: Never Smokeless tobacco: Never Vaping Use Vaping status: Never Used Substance Use Topics Alcohol use: Not Currently Drug use: Never [4] Family History Problem Relation Name Age of [...] disorder Son Obesity Son Depression Son Jpsage Ordaz Asthma Son Jpsage Ordaz Mental illness Son Jpsage Ordaz Depression Son Viral Ordaz Diabetes Son Viral Ordaz [5] albumin human, 1 g/kg, Intravenous, q24h calcitriol, 0.25 mcg, Oral, Daily calcium carbonate, 750 mg, Oral, Daily cetirizine, 10 mg, Oral, Daily cholecalciferol, 1,000 Units, Oral, Daily ciprofloxacin, 500 mg, Oral, Daily [Held by provider] heparin (porcine), 5,000 Units, Subcutaneous, q12h insulin glargine-yfgn, 24 Units, Subcutaneous, Daily insulin lispro, 0-10 Units, Subcutaneous, TID with meals insulin lispro, 0-3 Units, Subcutaneous, Twice at night lactulose, 20 g, Oral, TID magnesium oxide, 400 mg, Oral, Daily midodrine, 15 mg, Oral, TID rifAXIMin, 550 mg, Oral, BID Insert peripheral IV, , , Once AND Saline lock IV, , , Once AND sodium chloride, 10 mL, Intravenous, q12h AND sodium chloride, 10 mL, Intravenous, PRN [COMPLETED] Insert peripheral IV, , , Once AND [COMPLETED] Saline lock IV, , , Once AND sodium chloride, 10 mL, Intravenous, q12h AND sodium chloride, 10 mL, Intravenous, PRN [6] albumin human, 12.5 g, Intravenous, q15 min PRN benzonatate, 100 mg, Oral, TID PRN capsaicin, , Topical, BID PRN glucose, 15-30 grams of glucose, Sublingual, q15 min PRN OR dextrose 10 %, 125 mL, Intravenous,q15 min PRN OR dextrose 10 %, 250 mL, Intravenous, q15 min PRN OR glucagon (human recombinant), 1 mg, Intramuscular, q15 min PRN Insert peripheral IV, , , Once AND Saline lock IV, , , Once AND sodium chloride, 10 mL, Intravenous, q12h AND sodium chloride, 10 mL, Intravenous, PRN [COMPLETED] Insert peripheral IV, , , Once AND [COMPLETED] Saline lock IV, , , Once AND sodium chloride, 10 mL, Intravenous, q12h AND sodium chloride, 10 mL, Intravenous, PRN * Progress Notes - Yeni Lebron APRN, DNP - 07/03/2025 10:57 AM EDT Abdominal Transplant Surgery Consult Follow-Up Note REASON FOR CONSULT: admitted with initial concern for HRS, discussed CHIEF COMPLAINT: concern for CARLOTTA and inability to care for self. 24 Hour HPI: Pt sitting up in bed, with 2 family members at bedside. She is speaking to SW/case management aboutNH placement plans. Pt demonstrates understanding that living in a NH will prevent her from being considered for transplant surgery, but wonders if she should still follow with Hepatology. Advised that she should continue to see hepatology for cirrhosis management. MELD 3.0: 23 at 07/03/2025 4:25 AM MELD-Na: 22 at 07/03/2025 4:25 AM Calculated from: Serum Creatinine: 1.53 mg/dL at 07/03/2025 4:25 AM Serum Sodium: 141 mmol/L (Using max of 137 mmol/L) at 07/03/2025 4:25 AM Total Bilirubin: 2.9 mg/dL at 07/03/2025 4:25 AM Serum Albumin: 3.5 g/dL at 07/03/2025 4:25 AM INR(ratio): 2 at 07/03/2025 4:25 AM Age at listin years Sex: Female at 07/03/2025 4:25 AM REVIEW OF SYSTEMS Review of Systems Gastrointestinal: Positive for abdominal distention. Neurological: Positive for weakness. All other systems reviewed and are negative. PHYSICAL EXAM GENERAL: Elderly adult female, NAD. EYES: PERRL + mild scleral icterus HENT: No lesions in anterior nares; no lesions in oropharynx, head atraumatic and normocephalic NECK: Supple. No thyromegaly or adenopathy. No JVD noted. The trachea appears midline. RESP: Symmetric expansion; no retractions. Clear to auscultation bilaterally. CARD: RRR, without appreciable murmur, rubs, or gallop. Extremities: mild LE edema, no cyanosis or clubbing. Pulses palpable x4. GI: No organomegaly or masses. Nontender distended. + ascites. Soft BS present x 4 quadrants. SKIN: No rash, sores, lesions or subcutaneous nodules. NEURO: alert and oriented x 3 MEDICATIONS Medications Ordered Prior to Encounter[1] LABS Results from last 7 days Lab Units 07/03/25 0425 SODIUM mmol/L 141 POTASSIUM mmol/L 4.3 CHLORIDE mmol/L 111* CO2 mmol/L 19* BUN mg/dL 32* CREATININE mg/dL 1.53* CALCIUM mg/dL 8.7* BILIRUBIN TOTAL mg/dL 2.9* ALKALINE PHOSPHATASE U/L 164* ALT U/L 19 AST U/L 36* GLUCOSE mg/dL 148* Results from last 7 days Lab Units 07/03/25 0425 WBC 10*3/uL 2.60* HEMOGLOBIN g/dL 7.9* HEMATOCRIT % 23.6* PLATELETS 10*3/uL 43* Results from last 7 days Lab Units 07/03/25 0425 MAGNESIUM mg/dL 2.0 Lab Results Component Value Date CALCIUM 8.7 (L) 07/03/2025 PHOS 3.3 07/03/2025 ASSESSMENT/PLAN Monika Ordaz is a 64 y.o. female with PMH COPD, CKD stage 3b, CAD, T2DM with diabetic neuropathy, dysphagia, obesity, JONATHAN, HLD, cirrhosis with ascites, esophageal varices, portal HTN, IBS C/D, Rheumatoid Arthritis with positive Rf, and SLE admitted on 06/25/2025 for CARLOTTA on CKD in the setting of cirrhosis with ascites and inability for self care. Transplant surgery was consulted as patient is currently undergoing evaluation for liver transplant. Decompensated MASH Cirrhosis (POA) Ascites (POA) EV (POA) HE (POA) Coagulopathy (POA) - MELD 3.0: 23 at 07/03/2025, ABO: O+ - 05/07/26 CT A/P w/ IV contrast Read: Portal hypertension as evidenced by splenomegaly, portosystemic collaterals, subperitoneal space edema, portal colopathy and moderate volume ascites. - consider GAS/Hepatology consult if needing assistance with cirrhosis management and as the patient will/does follow with Transplant Hepatology as an outpatient - 06/17/25 Liver selection committee review notes: Pt remains inactive due to lack of caregiver. - Pt advises she is unable to live independently, and is seeing to transition to a nursing facilityfor care post hospital discharge. She understands that living in a NH and not having a caregiver for post-transplant care will prevent her from being a candidate for transplant surgery. - She asks whether she should keep her 08/20 appointment with [facility] - advised that she willstill need hepatology f/up for her cirrhosis. - Transplant surgery will sign off at this time. - Rest of care per primary CARLOTTA on CKD - Baseline Cr 1.1-1.3, current Cr 1.53 - On Midodrine 15mg TID - Avoid nephrotoxic agents as able Debility - PT/OT recs: Home w/ 24 hour assist - Pt endorses difficulty doing tasks at home DM - 05/23/25: Hgb A1c: 7.3 - On insulin at home I spent 30 minutes chart review, counseling patient/family regarding diagnosis, prognosis, and treatment plan (including risks and benefits), and discussing case with care team members and formulating the plan. [1] No current facility-administered medications on file prior to encounter. Current Outpatient Medications on File Prior to Encounter Medication Sig Dispense Refill Abaloparatide (Tymlos) 3120 MCG/1.56ML solution pen-injector Inject 80 mcg under the skin daily. 1.56 mL 2 calcitriol (Rocaltrol) 0.25 MCG capsule Take 1 capsule by mouth daily. 30 capsule 0 calcium carbonate EX (Tums E-X) 750 MG chewable tablet Chew 1 tablet (750 mg) 1 (one) time each day. capsaicin (Zostrix-HP) 0.075 % topical cream Apply 1 Application topically daily as needed (Leg andfoot cramps). cetirizine (ZyrTEC) 10 MG tablet Take 1 tablet by mouth daily. 30 tablet 2 cholecalciferol (Vitamin D-3) 25 MCG (1000 UT) tablet Take 1 tablet by mouth daily. 90 tablet 2 ciprofloxacin (Cipro) 500 MG tablet Take 1 tablet by mouth daily. 90 tablet 1 insulin aspart (NovoLOG) 100 UNIT/ML injection vial Inject 20 Units under the skin 3 times a day before meals. Plus 4 units for every 50 > 150 MDD 80 units insulin glargine (Lantus SoloStar) 100 UNIT/ML injection pen Inject 48 Units under the skin every morning. lactulose (Chronulac) 10 GM/15ML solution Take 30 mL by mouth 3 times a day. 2700 mL 11 Magnesium Oxide, Laxative, 500 MG tablet Take 1 tablet by mouth daily. 90 tablet 3 midodrine (Proamatine) 5 MG tablet Take 2 tablets by mouth 3 times a day. Multiple Vitamins-Minerals (COMPLETE WOMENS PO) Take 1 tablet by mouth in the morning. prochlorperazine (Compazine) 5 MG tablet Take 1 tablet by mouth every 8 hours as needed for nausea or vomiting. 60 tablet 2 rifAXIMin (Xifaxan) 550 MG tablet Take 1 tablet by mouth 2 times a day. 60 tablet 11 zinc sulfate (Zincate) 220 (50 Zn) MG capsule Take 1 capsule by mouth in the morning and 1 capsule before bedtime. 60 capsule 2 ergocalciferol (Vitamin D-2) 1.25 MG (99042 UT) capsule Take 1 capsule by mouth 1 time per week. 4 capsule 0 [place] 0.6 MG/0.6ML solution auto-injector Inject 0.6 mg under the skin 1 time as needed (for extreme hypoglycemia) for up to 1 dose. 0.6 mL 2 * Consults - Micheal Glasgow APRN, DNP - 07/03/2025 10:34 AM EDTAssociated Order(s): IP CONSULT TO INTERVENTIONAL RADIOLOGY 07/03/25 Patient: Monika Ordaz Date of : 1960[address]64 y.o. Date of Visit: July 03, 2025 Requesting Service: Fabiana Cunningham MD Chief Complaint: Abnormal lab History of Present Illness: Monika Ordaz is a 64 y.o. 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 She is presenting to on 06/25/25from Nephrology clinic with concern for CARLOTTA and inability to care for self. Ms. Odraz is well known to IR, undergoing outpatient paracentesis/thoracentesis weekly Most recent paracentesis /thoracentesis completed 06/27 with 1.4 L removed during right thoracentesis and 3 L removed during LVP. She was already scheduled with us as outpatient for thoracentesis and paracentesis on 07/04/25. We are consulted to perform inpatient. History and admission information obtained from chart review of primary and consulting teams notation , as well as speaking directly to consulting team. The following portions of the chart were reviewed this encounter and updated as appropriate: Review of Systems: 14 point ROS negative of symptoms except for listed above in HPI. Past Medical History Pertinent Negatives[1] Surgical History[2] Social History[3] Family History: Personally reviewed and noncontributory. Allergies[4] Objective: All laboratory, images, tracings, and vital sign data are personally reviewed unless otherwise noted. VITALS: Temp: [36.3 ??C (97.4 ??F)-37.1 ??C (98.7 ??F)] 36.7 ??C (98.1 ??F) Heart Rate: [61-76] 67 Resp: [15-17] 16 BP: (99-110)/(54-64) 108/57 Weight: 79.8 kg (176 lb) Body mass index is 30.12 kg/m??. I & O SUMMARY I/O last 3 completed shifts: In: 600 (7.3 mL/kg) [P.O.:600] Out: 250 (3 mL/kg) [Urine:250 (0.1 mL/kg/hr)] Weight: 82.1 kg I/O this shift: In: - Out: 300 [Urine:300] MEDICATIONS: Current Medications[5] LABS (PAST 18Labs in last 18 hours) CBC WBC 2.60 (L) Hb 7.9 (L) Plt 43 (L) Hct 23.6 (L) INR 2.0 (H) PTT ?? Anti-Xa ?? BMP Na 141 Cl 111 (H) BUN 32 (H) Glu 148 (H) K 4.3 Co2 19 (L) Cr 1.53 (H) Ca 8.7 (L) Mg 2.0 Phos 3.3 Lactate ?? LFT AST 36 (H) AlkPhos 164 (H) T Prot 6.2 (L) ALK 19 Bili 2.9 (H) Alb ?? D.Bili ?? HOURS) EXAM: GENERAL: No acute distress EYES: PERRL; No scleral icterus or conjunctivitis HENT: Atraumatic, normocephalic RESP/CHEST: Symmetric expansion; non labored. CARD: regular rate and rhythm Extremities: No edema, no cyanosis or clubbing. Pedal pulses palpable +2. GI: No organomegaly or masses. Soft, Nontender, nondistended. SKIN: No rash, sores, lesions or subcutaneous nodules. NEURO: Alert Radiographics/Diagnostics: Imaging personally reviewed and reviewed with attending. === 06/23/25 === CT [facility] OUTSIDE IMAGES === 06/25/25 === XR CHEST 1 VIEW - Narrative - CLINICAL INDICATION: hx of pleural effusion, SOA TECHNIQUE: XR CHEST 1 VIEW COMPARISON: 06/20/2025. FINDINGS: New medium-sized right pleural effusion. New right lower and middle lobe opacities. No pneumothorax. Decreased lung volumes with vascular crowding; cardiac silhouette and mediastinal contours are stable within these confines. - Impression - New medium-sized right pleural effusion. New right lower and middle lobe opacities may represent atelectasis, however superimposed infection cannot definitely be excluded. CRITICAL RESULT: No. COMMUNICATION: Per this written report. Drafted by Nory Singh MD on 06/25/2025 4:08 PM Final report signed by Nory Singh MD on 06/25/2025 4:12 PM Assessment & Plan: Decompensated cirrhosis, MASH Ascites Hepatic hydrothorax EV MELD 3.0: 23 at 07/03/2025 4:25 AM MELD-Na: 22 at 07/03/2025 4:25 AM Calculated from: Serum Creatinine: 1.53 mg/dL at 07/03/2025 4:25 AM Serum Sodium: 141 mmol/L (Using max of 137 mmol/L) at 07/03/2025 4:25 AM Total Bilirubin: 2.9 mg/dL at 07/03/2025 4:25 AM Serum Albumin: 3.5 g/dL at 07/03/2025 4:25 AM INR(ratio): 2 at 07/03/2025 4:25 AM Age at listin years Sex: Female at 07/03/2025 4:25 AM - HCC: No identified liver lesions on last imaging, 04/2025. AFP 4 = 05/07/25. 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 - HE: history of encephalopathy requiring intubation. Lactulose at home. - Ascites/hepatic hydrothorax: 7-10 days paracentesis/thoracentesis. - Right thoracentesis with 1.4 L removed, Paracentesis with 3 L removed - Difficulty with titration of diuretics due to kidney function - VSS, Afebrile CARLOTTA on CKD III - Creatinine 1.53 with baseline 1.1-1.3 - Nephrology following PLAN: - Will perform paracentesis and thoracentesis on 07/04/25 [will perform inpatient] - Hold anticoagulation - Will consent prior to procedure. - Any questions with scheduling please call [phone] - Please place orders for desired fluid studies to be sent for analysis prior to procedure Thank you for allowing us to participate in the care of this patient. Micheal Glasgow, BRAND SPECIALIST, DNP Interventional Radiology [phone] [1] Past Medical History: Diagnosis Date ADHD (attention deficit hyperactivity disorder) Allergic Anxiety disorder, unspecified Anxiety Bleeding gums Blood in urine Cataract Chronic kidney disease Cirrhosis (CMS/HCC) Colon cancer screening 09/20/2019 Added automatically from request for surgery [id number] Coronary artery disease Depression 1995 Diabetes mellitus [...] 1979 BLADDER SURGERY N/A Bladder surgery from [facility] BREAST BIOPSY 2011 BREAST SURGERY 2010 BUNIONECTOMY Right CATARACT EXTRACTION Bilateral 2016 CHOLECYSTECTOMY 1979 ESOPHAGOGASTRODUODENOSCOPY HYSTERECTOMY N/A Hysterectomy from [facility] KNEE SURGERY Bilateral ORAL SURGERY N/A Oral surgery from [facility] OTHER SURGICAL HISTORY 2015 ROOT CANAL WISDOM TOOTH EXTRACTION [3] Social History Tobacco Use Smoking status: Never Passive exposure: Never Smokeless tobacco: Never Vaping Use Vaping status: Never Used Substance Use Topics Alcohol use: Not Currently Drug use: Never [4] No Known Allergies [5] Current Facility-Administered Medications: albumin human 25 % infusion 12.5 g, 12.5 g, Intravenous, q15 min PRN, Marianna Gordon N, BRAND SPECIALIST albumin human 25 % infusion 87.5 g, 1 g/kg, Intravenous, q24h, Dayne Medel R, DO, 87.5 g at 07/02/25 1227 benzonatate (Tessalon) capsule 100 mg, 100 mg, Oral, TID PRN, Veronica Del Valle K, DO calcitriol (Rocaltrol) capsule 0.25 mcg, 0.25 mcg, Oral, Daily, Blayne Ordaz, , 0.25 mcg at 07/03/25 0935 calcium carbonate (Tums) chewable tablet 750 mg, 750 mg, Oral, Daily, Blayne Ordaz, , 750 mg at07/03/25 0935 capsaicin (Zostrix) 0.025 % cream, , Topical, BID PRN, Blayne Ordaz, cetirizine (ZyrTEC) tablet 10 mg, 10 mg, Oral, Daily, Blayne Ordaz, , 10 mg at 07/03/25 0935 cholecalciferol (Vitamin D-3) tablet 1,000 Units, 1,000 Units, Oral, Daily, Blayne Ordaz DO, 1,000 Units at 07/03/2535 ciprofloxacin (Cipro) tablet 500 mg, 500 mg, Oral, Daily, Blayne Ordaz, , 500 mg at 07/03/25 0935 glucose (Glutose) 40 % oral gel 15-30 grams of glucose, 15-30 grams of glucose, Sublingual, q15 minPRN OR dextrose 10 % (D10W) bolus 125 mL, 125 mL, Intravenous, q15 min PRN OR dextrose 10 %(D10W) bolus 250 mL, 250 mL, Intravenous, q15 min PRN OR glucagon (human recombinant) injection1 mg, 1 mg, Intramuscular, q15 min PRN, Blayne Ordaz DO heparin (porcine) injection 5,000 Units, 5,000 Units, Subcutaneous, q12h, Irvin Ball MD, 5,000 Units at 07/03/25933 insulin glargine-yfgn 100 UNIT/ML injection 24 Units, 24 Units, Subcutaneous, Daily, Blayne Ordaz DO, 24 Units at 07/03/25 0936 insulin lispro (Admelog) 100 units/mL injection - Correction - Resistant Dose, 0-10 Units, Subcutaneous, TID with meals, Blayne Ordaz DO, 2 Units at 07/02/25 1226 insulin lispro (Admelog) injection - Correction - Nighttime Dose, 0-3 Units, Subcutaneous, Twice atnight, Blayne Ordaz DO lactulose (Chronulac) 10 GM/15ML solution 20 g, 20 g, Oral, TID, Blayne Ordaz DO, 20 g at 07/03/25 0934 magnesium oxide (Mag-Ox) tablet 400 mg, 400 mg, Oral, Daily, Blayne Ordaz DO, 400 mg at 111 midodrine (Proamatine) tablet 15 mg, 15 mg, Oral, TID, Dayne Medel, DO, 15 mg at 07/03/25 0935 rifAXIMin (Xifaxan) tablet 550 mg, 550 mg, Oral, BID, Blayne Ordaz DO, 550 mg at 07/03/25 0934 [COMPLETED] Insert peripheral IV, , , Once AND [COMPLETED] Saline lock IV, , , Once AND sodium chloride 0.9 % flush 10 mL, 10 mL, Intravenous, q12h, 10 mL at 07/03/25 1004 AND sodium chloride 0.9 % flush 10 mL, 10 mL, Intravenous, PRN, Blayne Ordaz, Insert peripheral IV, , , Once AND Saline lock IV, , , Once AND sodium chloride 0.9 % flush10 mL, 10 mL, Intravenous, q12h, 10 mL at 07/03/25 0015 AND sodium chloride 0.9 % flush 10 mL, 10 mL, Intravenous, PRN, Maria Dolores Ontiveros APRN, ANGELLA * Consults - Yudith Coates RD - 07/03/2025 10:11 AM EDTAssociated Order(s): IP CONSULT TO NUTRITION SERVICES Adult Nutrition Evaluation Note Monika Ordaz 64 y.o. female CSN: [id number] Room/Bed 723/723A Nutrition evaluation type: follow-up Reason for evaluation: provider consult; pt request for diet education Hospital course: 64y/o female admitted 06/25 for CARLOTTA on CKD and inability to care for herself. Past medical/ surgical history: Past Medical History[1] Surgical History[2] Social history: None, no uatsdin needs Additional comments: 07/03: Pt seen at bedside with family. Reported eating at least 50% of meals, but noted she has become tired of the meals d/t limited food options with her current dietary restrictions. Pt reported she has been receiving a lot of meal items with cheese, pasta, broccoli, and beans which have made it difficult to produce regular BMs. Endorsed decreased appetite 2/2 abdominal fullness from ascites. Discussed liberalizing dietary restrictions as long as elytes are WNLs to increase meal options and variety. Pt agreeable to snacks TID and trial of [place] Boost [employer] [facility] to meet increased nutrient needs. Provided opportunity for pt to ask questions about dietary needs and restrictions with chronic conditions. Reviewed consistent carbohydrate meal pattern, nutrients of concern with CKD, and importanceof achieving adequate calorie/protein consumption for cirrhosis. Emphasized eating small, frequent m eals to meet nutrient needs and promote stable BG levels. Reviewed examples of foods high in sodium, potassium, and phosphorus and the importance of reading nutrition facts labels. Discussed how the prison she discharges to would likely monitor these nutrients in her diet to help manage her conditions. All questions/concerns addressed to pt satisfaction. Diet Education Provided: Will monitor Vitals and Basic Assessment: BP: 108/57 Temp: 36.7 ??C (98.1 ??F) Oxygen Therapy: None (Room air) O2 Delivery Method: CPAP/Bi-PAP mask [place] Coma Scale Score: 14 Edd Scale Score: 17 Most Recent BM Date: 07/02/25 GI Symptoms: Nausea Edema: Generalized +paracentesis/thoracentesis Skin: surgical wound on lower left abdomen (06/20/25) and surgical wound on right back (06/20/25) Allergies: NKFA Medications: Current Scheduled Medications[3] Current Continuous Medications[4] Current PRN Medications[5] Medications Ordered Prior to Encounter[6] Labs: Lab Results Component Value Date WBC 2.60 (L) 07/03/2025 HGB 7.9 (L) 07/03/2025 HCT 23.6 (L) 07/03/2025 MCV 92 07/03/2025 PLT 43 (L) 07/03/2025 Lab Results Component Value Date GLUCOSE 148 (H) 07/03/2025 CALCIUM 8.7 (L) 07/03/2025 NA 141 07/03/2025 K 4.3 07/03/2025 CO2 19 (L) 07/03/2025 CL 111 (H) 07/03/2025 BUN 32 (H) 07/03/2025 CREATININE 1.53 (H) 07/03/2025 PHOS 3.3 07/03/2025 MG 2.0 07/03/2025 HGBA1C 7.3 (H) 05/23/2025 EGFR 38.3 07/03/2025 -- POCT glucose of 81 - 245mg/dL (06/25 - 06/26); 105-257 mg/dL (06/27-07/03) Lab Results Component Value Date ALT 19 07/03/2025 AST 36 (H) 07/03/2025 ALKPHOS 164 (H) 07/03/2025 BILITOT 2.9 (H) 07/03/2025 Anthropometrics: Height: 165.1 cm (5' 5 ) Weight: 82.1 kg (181 lb) BMI (Calculated): 30.12 Weight Evaluation: Obese-Class 1 (BMI 30-34.9) [place] Body Weight (kg): 56.8 Percent [place] Body Weight: 145 Adjusted Body Weight (kg): 63 Wt Readings from Last 10 Encounters: 07/01/25 82.1 kg (181 lb) 06/25/25 79.9 kg (176 lb 2.4 oz) 06/20/25 83.8 kg (184 lb 11.9 oz) 06/13/25 85.7 kg (188 lb 15 oz) 06/11/25 82 kg (180 lb 12.4 oz) 06/06/25 82.7 kg (182 lb 5.1 oz) 06/05/25 80.6 kg (177 lb 11.1 oz) 05/31/25 87.9 kg (193 lb 12.6 oz) 05/30/25 82.5 kg (181 lb 14.1 oz) 05/23/25 86.9 kg (191 lb 9.3 oz) Estimated Needs: Kcal/ K-35 Kcal Provided: 3767-2639 Kcal Needs Based On: Adjusted weight (63 kg) Gm Protein/ Kg : 1.2-1.5 Protein Provided: 76-95 Protein Needs Based On: Adjusted weight (63 kg) Fluid Provided: 1 ml/kcal or per MD team Metabolic Cart Study Results: Current Nutrition Intake: Diet Supplements: None Diet Order: Adult Diet Diet Texture: Regular Adult Carbohydrate Restriction: Consistent CHO 2 (3304-3226 Deniz, 80 g/meal) Fat Restriction: (-) Electrolyte Restriction: Renal Percent Meals Eaten (%): 68% avg x 15 meals (06/27-07/02) Nutrition Focused Physical Exam: Physical exam performed on (date): 06/26 Temples (muscles): None Clavicle (muscle): Mild Shoulder (muscle): Mild Thigh (muscle): Mild Calf (muscle): Mild Orbital (fat): None Triceps (fat): Mild Assessment of Malnutrition: Malnutrition Identified: No Nutrition Problem: Inadequate energy intake related to self-care deficit as evidenced by inability to perform ADL, pt reported that her appetite is hit or miss , 66% avg x 2 meals (06/26) -> 68% avg x 15 meals (06/27-07/02), reported burn out with limited food options. Status of Nutrition Diagnosis: Ongoing Nutrition Interventions and Recommendations: Continue Regular/CC2/2g Na+ diet as tolerated. Removing Renal modification to provide greater menu options as elytes WNLs. Trial [place] Boost [facility] x 1 daily. Add Snacks TID to facilitate small, frequent meals. Kitchen unable to accommodate high calorie/protein restriction with other diet restrictions (i.e., renal, consistent carb, etc.). Rec Nephrovite supplementation daily. Agree with calcium and vitamin D supplementation - rec taking separately from Nephrovite. Insulin regimen per MD Team. Nursing: Please document all PO intakes in I/Os in Flowsheets. Nutrition Monitoring and Goals: - Will monitor PO intake, weight status, lab results, GI tolerance, and skin integrity - Pt will tolerate >75% avg of meal intakes (Not met 07/03, continue) - Blood Glucose <200mg/dl during admission (Not met 07/03, continue) Acuity Level: 1 x2 Yudith Coates, RD, LD, MS [1] Past Medical History: Diagnosis Date ADHD (attention deficit hyperactivity disorder) Allergic Anxiety disorder, unspecified Anxiety Bleeding gums Blood in urine Cataract Chronic kidney disease Cirrhosis (CMS/HCC) Colon cancer screening 09/20/2019 Added automatically from request for surgery [id number] Coronary artery disease Depression 1996 Diabetes mellitus [...] 1979 BLADDER SURGERY N/A Bladder surgery from [facility] BREAST BIOPSY 2011 BREAST SURGERY 2009 BUNIONECTOMY Right CATARACT EXTRACTION Bilateral 2016 CHOLECYSTECTOMY 1979 ESOPHAGOGASTRODUODENOSCOPY HYSTERECTOMY N/A Hysterectomy from [facility] KNEE SURGERY Bilateral ORAL SURGERY N/A Oral surgery from [facility] OTHER SURGICAL HISTORY 2014 ROOT CANAL WISDOM TOOTH EXTRACTION [3] albumin human, 1 g/kg, Intravenous, q24h calcitriol, 0.25 mcg, Oral, Daily calcium carbonate, 750 mg, Oral, Daily cetirizine, 10 mg, Oral, Daily cholecalciferol, 1,000 Units, Oral, Daily ciprofloxacin, 500 mg, Oral, Daily heparin (porcine), 5,000 Units, Subcutaneous, q12h insulin glargine-yfgn, 24 Units, Subcutaneous, Daily insulin lispro, 0-10 Units, Subcutaneous, TID with meals insulin lispro, 0-3 Units, Subcutaneous, Twice at night lactulose, 20 g, Oral, TID magnesium oxide, 400 mg, Oral, Daily midodrine, 15 mg, Oral, TID rifAXIMin, 550 mg, Oral, BID sodium chloride, 10 mL, Intravenous, q12h sodium chloride, 10 mL, Intravenous, q12h [4] [5] PRN medications: albumin human, benzonatate, capsaicin, glucose OR dextrose 10 % OR dextrose 10 % OR glucagon (human recombinant), [COMPLETED] Insert peripheral IV AND [COMPLETED]Saline lock IV AND sodium chloride AND sodium chloride, Insert peripheral IV AND [place] IV AND sodium chloride AND sodium chloride [6] No current facility-administered medications on file prior to encounter. Current Outpatient Medications on File Prior to Encounter Medication Sig Dispense Refill Abaloparatide (Tymlos) 3120 MCG/1.56ML solution pen-injector Inject 80 mcg under the skin daily. 1.56 mL 2 calcitriol (Rocaltrol) 0.25 MCG capsule Take 1 capsule by mouth daily. 30 capsule 0 calcium carbonate EX (Tums E-X) 750 MG chewable tablet Chew 1 tablet (750 mg) 1 (one) time each day. capsaicin (Zostrix-HP) 0.075 % topical cream Apply 1 Application topically daily as needed (Leg andfoot cramps). cetirizine (ZyrTEC) 10 MG tablet Take 1 tablet by mouth daily. 30 tablet 2 cholecalciferol (Vitamin D-3) 25 MCG (1000 UT) tablet Take 1 tablet by mouth daily. 90 tablet 2 ciprofloxacin (Cipro) 500 MG tablet Take 1 tablet by mouth daily. 90 tablet 1 insulin aspart (NovoLOG) 100 UNIT/ML injection vial Inject 20 Units under the skin 3 times a day before meals. Plus 4 units for every 50 > 150 MDD 80 units insulin glargine (Lantus SoloStar) 100 UNIT/ML injection pen Inject 48 Units under the skin every morning. lactulose (Chronulac) 10 GM/15ML solution Take 30 mL by mouth 3 times a day. 2700 mL 11 Magnesium Oxide, Laxative, 500 MG tablet Take 1 tablet by mouth daily. 90 tablet 3 midodrine (Proamatine) 5 MG tablet Take 2 tablets by mouth 3 times a day. Multiple Vitamins-Minerals (COMPLETE WOMENS PO) Take 1 tablet by mouth in the morning. prochlorperazine (Compazine) 5 MG tablet Take 1 tablet by mouth every 8 hours as needed for nausea or vomiting. 60 tablet 2 rifAXIMin (Xifaxan) 550 MG tablet Take 1 tablet by mouth 2 times a day. 60 tablet 11 zinc sulfate (Zincate) 220 (50 Zn) MG capsule Take 1 capsule by mouth in the morning and 1 capsule before bedtime. 60 capsule 2 ergocalciferol (Vitamin D-2) 1.25 MG (50512 UT) capsule Take 1 capsule by mouth 1 time per week. 4 capsule 0 [place] 0.6 MG/0.6ML solution auto-injector Inject 0.6 mg under the skin 1 time as needed (for extreme hypoglycemia) for up to 1 dose. 0.6 mL 2 * Assessment & Plan Note - Marcelo Pichardo - 07/03/2025 8:24 AM EDTAssociated Problem(s): Acute kidney injury superimposed on stage 3b chronic kidney disease (CMS/HCC) (Resolved 07/07/2025) - Creatinine 1.0-1.1 at baseline; Improved to 1.53 from 1.73 - Paracentesis with as needed thoracentesis scheduled for - Of note HgB levels dropped from 8.3 to 7.9 likely dilutional PLAN - Continue to trend creatinine on daily CMP - Continue home lactulose, rifaximin, and ciprofloxacin - Complete Albumin Challenge today 07/03 - 25% infusion 87.5 g q 24 for 1 more dose - Monitor for signs of acute bleed stable at this time - Consult Hepatology if patient worsens - Continue midodrine 15mg TID - Continue daily vit D 1000 U - Strict I&O q4 - Renally dose medications and avoid nephrotoxic agents - Will reach out to IR today to discuss therapeutic para, patient says she is scheduled to get one outpatient tomorrow * Assessment & Plan Note - Marcelo Pichardo - 07/03/2025 8:24 AM EDTAssociated Problem(s): Chronic kidney disease, stage 3b (CMS/HCC) - Creatinine 1.0-1.1 at baseline; Improved to 1.53 from 1.73 - Paracentesis with as needed thoracentesis scheduled for - Of note HgB levels dropped from 8.3 to 7.9 likely dilutional PLAN - Continue to trend creatinine on daily CMP - Continue home lactulose, rifaximin, and ciprofloxacin - Complete Albumin Challenge today 07/03 - 25% infusion 87.5 g q 24 for 1 more dose - Monitor for signs of acute bleed stable at this time - Consult Hepatology if patient worsens - Continue midodrine 15mg TID - Continue daily vit D 1000 U - Strict I&O q4 - Renally dose medications and avoid nephrotoxic agents - Will reach out to IR today to discuss therapeutic para, patient says she is scheduled to get one outpatient tomorrow * Assessment & Plan Note - Marcelo Pichardo - 07/03/2025 8:24 AM EDTAssociated Problem(s): Cirrhosis of liver with ascites (CMS/HCC) - Creatinine 1.0-1.1 at baseline; Improved to 1.53 from 1.73 - Paracentesis with as needed thoracentesis scheduled for - Of note HgB levels dropped from 8.3 to 7.9 likely dilutional PLAN - Continue to trend creatinine on daily CMP - Continue home lactulose, rifaximin, and ciprofloxacin - Complete Albumin Challenge today 07/03 - 25% infusion 87.5 g q 24 for 1 more dose - Monitor for signs of acute bleed stable at this time - Consult Hepatology if patient worsens - Continue midodrine 15mg TID - Continue daily vit D 1000 U - Strict I&O q4 - Renally dose medications and avoid nephrotoxic agents - Will reach out to IR today to discuss therapeutic para, patient says she is scheduled to get one outpatient tomorrow * Assessment & Plan Note - Marcelo Pichardo - 07/03/2025 8:24 AM EDTAssociated Problem(s): Hx of spontaneous bacterial peritonitis - Creatinine 1.0-1.1 at baseline; Improved to 1.53 from 1.73 - Paracentesis with as needed thoracentesis scheduled for - Of note HgB levels dropped from 8.3 to 7.9 likely dilutional PLAN - Continue to trend creatinine on daily CMP - Continue home lactulose, rifaximin, and ciprofloxacin - Complete Albumin Challenge today 07/03 - 25% infusion 87.5 g q 24 for 1 more dose - Monitor for signs of acute bleed stable at this time - Consult Hepatology if patient worsens - Continue midodrine 15mg TID - Continue daily vit D 1000 U - Strict I&O q4 - Renally dose medications and avoid nephrotoxic agents - Will reach out to IR today to discuss therapeutic para, patient says she is scheduled to get one outpatient tomorrow * Assessment & Plan Note - Marcelo Pichardo - 07/03/2025 8:24 AM EDTAssociated Problem(s): Pleural effusion associated with hepatic disorder - Creatinine 1.0-1.1 at baseline; Improved to 1.53 from 1.73 - Paracentesis with as needed thoracentesis scheduled for - Of note HgB levels dropped from 8.3 to 7.9 likely dilutional PLAN - Continue to trend creatinine on daily CMP - Continue home lactulose, rifaximin, and ciprofloxacin - Complete Albumin Challenge today 07/03 - 25% infusion 87.5 g q 24 for 1 more dose - Monitor for signs of acute bleed stable at this time - Consult Hepatology if patient worsens - Continue midodrine 15mg TID - Continue daily vit D 1000 U - Strict I&O q4 - Renally dose medications and avoid nephrotoxic agents - Will reach out to IR today to discuss therapeutic para, patient says she is scheduled to get one outpatient tomorrow * Assessment & Plan Note - Marcelo Pichardo - 07/03/2025 8:24 AM EDTAssociated Problem(s): LLQ abdominal pain (Resolved 07/09/2025) - Creatinine 1.0-1.1 at baseline; Improved to 1.53 from 1.73 - Paracentesis with as needed thoracentesis scheduled for - Of note HgB levels dropped from 8.3 to 7.9 likely dilutional PLAN - Continue to trend creatinine on daily CMP - Continue home lactulose, rifaximin, and ciprofloxacin - Complete Albumin Challenge today 07/03 - 25% infusion 87.5 g q 24 for 1 more dose - Monitor for signs of acute bleed stable at this time - Consult Hepatology if patient worsens - Continue midodrine 15mg TID - Continue daily vit D 1000 U - Strict I&O q4 - Renally dose medications and avoid nephrotoxic agents - Will reach out to IR today to discuss therapeutic para, patient says she is scheduled to get one outpatient tomorrow * Assessment & Plan Note - Marcelo Pichardo - 07/03/2025 8:24 AM EDTAssociated Problem(s): Vasovagal syncope (Resolved 07/09/2025) - Creatinine 1.0-1.1 at baseline; Improved to 1.53 from 1.73 - Paracentesis with as needed thoracentesis scheduled for - Of note HgB levels dropped from 8.3 to 7.9 likely dilutional PLAN - Continue to trend creatinine on daily CMP - Continue home lactulose, rifaximin, and ciprofloxacin - Complete Albumin Challenge today 07/03 - 25% infusion 87.5 g q 24 for 1 more dose - Monitor for signs of acute bleed stable at this time - Consult Hepatology if patient worsens - Continue midodrine 15mg TID - Continue daily vit D 1000 U - Strict I&O q4 - Renally dose medications and avoid nephrotoxic agents - Will reach out to IR today to discuss therapeutic para, patient says she is scheduled to get one outpatient tomorrow * Assessment & Plan Note - Marcelo Pichardo - 07/03/2025 8:24 AM EDTAssociated Problem(s): Physical debility - Patient at this time has elected to pursue [facility] placement and would like to speak with palliative care to learn more about their services - L Leg discomfort is improved PLAN - Delirium protocols - Continue Up to Chair TID, q4 turns - SW to meet with patient to discuss options further - Consult Palliative care - Ongoing GOC discussions * Assessment & Plan Note - Marcelo Pichardo - 07/03/2025 8:24 AM EDTAssociated Problem(s): Self-care deficit - Patient at this time has elected to pursue [facility] placement and would like to speak with palliative care to learn more about their services - L Leg discomfort is improved PLAN - Delirium protocols - Continue Up to Chair TID, q4 turns - SW to meet with patient to discuss options further - Consult Palliative care - Ongoing GOC discussions * Assessment & Plan Note - Marcelo Pichardo - 07/03/2025 8:24 AM EDTAssociated Problem(s): 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 - Patient at this time has elected to pursue [facility] placement and would like to speak with palliative care to learn more about their services - L Leg discomfort is improved PLAN - Delirium protocols - Continue Up to Chair TID, q4 turns - SW to meet with patient to discuss options further - Consult Palliative care - Ongoing GOC discussions * Assessment & Plan Note - Marcelo Pichardo - 07/03/2025 6:57 AM EDTAssociated Problem(s): Pancytopenia - WBC 2.6 (baseline 4.0) with 1.58 absolute neutrophils - RBC 2.56 (baseline 3.0), platelets 43 (baseline 55) - Stable overall PLAN - Continue to monitor - Continue Heparin for DVT prophylaxis - Rheumatology referral outpatient * Assessment & Plan Note - Marcelo Pichardo - 07/03/2025 6:57 AM EDTAssociated Problem(s): Type 2 diabetes mellitus, with long-term current use of insulin ([facility]) - Last POCT glucose 150 - 2 Units correction in last 24h none overnight PLAN - Continue Glargine 24 U daily + resistant SSI - Continue to monitor glucose trends * Assessment & Plan Note - Marcelo Pichardo - 07/03/2025 6:57 AM EDTAssociated Problem(s): Diabetic peripheral neuropathy ([facility]) - Last POCT glucose 150 - 2 Units correction in last 24h none overnight PLAN - Continue Glargine 24 U daily + resistant SSI - Continue to monitor glucose trends * Assessment & Plan Note - Marcelo Pichardo - 07/03/2025 6:57 AM EDTAssociated Problem(s): Dysphagia - Reflux stable PLAN - Continue to hold omeprazole * Assessment & Plan Note - Marcelo Pichardo - 07/03/2025 6:57 AM EDTAssociated Problem(s): Heartburn - Reflux stable PLAN - Continue to hold omeprazole * Assessment & Plan Note - Marcelo Pichardo - 07/03/2025 6:57 AM EDTAssociated Problem(s): Serum ammonia increased ([facility]) - Last ammonia stable at 61 on 06/30 PLAN - Continue home Lactulose - Recheck ammonia if neurologic change suspected * Assessment & Plan Note - Marcelo Pichardo - 07/03/2025 6:57 AM EDTAssociated Problem(s): Hypomagnesemia (Resolved 07/09/2025) - Mg 2.0 today PLAN - Continue magnesium oxide 400 mg daily - Check Levels Daily * Assessment & Plan Note - Marcelo Pichardo - 07/03/2025 6:57 AM EDTAssociated Problem(s): Chronic obstructive pulmonary disease ([facility]) - Chronic; on home BiPAP, per RT recs * Assessment & Plan Note - Marcelo Pichardo - 07/03/2025 6:57 AM EDTAssociated Problem(s): JONATHAN treated with BiPAP - Chronic; on home BiPAP, per RT recs * Assessment & Plan Note - Marcelo Pichardo - 07/03/2025 6:57 AM EDTAssociated Problem(s): 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 Subjective Monika Ordaz is a 64 y.o. female who was seen and evaluated on 07/03/2025. Currently on HospitalDay Hospital Day: 9. NAEON. No concerns from Nursing. This AM: Patient feels okay overall. States she did not sleep great because someone in a room nearby was calling out for a nurse frequently throughout the night. Her abdominal swelling and associated discomfort has increased today though this is normally how she feels at this point in the week. She has had her normal cough but did not ask for her tessalon pearls. Patient believes the albumin has helped her. States she feels more clear than she has in a long time since making a decision to pursue long term care pharmacist care and come off the transplant list. She states while this was a very difficult decision to make, she believes it is the best decision for her overall goals regarding her health in thelong term. Denies nausea, vomiting, hematuria, hematochezia, hematemesis, syncope, fatigue, pallor,chest pain, abdominal pain, or leg swelling. No acute complaints at this time. Review of Systems Additional review of systems negative except per HPI. Objective Visit Vitals BP 106/54 Pulse 61 Temp 36.6 ??C (97.9 ??F) Resp 15 Ht 1.651 m (5' 5 ) Wt 82.1 kg (181 lb) SpO2 95% BMI 30.12 kg/m?? OB Status Postmenopausal Smoking Status Never BSA 1.94 m?? Physical Exam Constitutional: General: She is not in acute distress. HENT: Head: Normocephalic. Nose: Nose normal. Eyes: General: No scleral icterus. Conjunctiva/sclera: Conjunctivae normal. Cardiovascular: Rate and Rhythm: Normal rate and regular rhythm. Pulses: Normal pulses. Heart sounds: Normal heart sounds. Pulmonary: Effort: Pulmonary effort is normal. No respiratory distress. Breath sounds: No wheezing or rhonchi. Abdominal: General: There is distension. Palpations: Abdomen is soft. Tenderness: There is no abdominal tenderness. There is no guarding or rebound. Comments: Patient endorses some mild discomfort in the epigastrum and LLQ on palpation near usual paracentesis site. Musculoskeletal: Right lower leg: No edema. Left lower leg: No edema. Skin: General: Skin is warm. Capillary Refill: Capillary refill takes 2 to 3 seconds. Neurological: General: No focal deficit present. Mental Status: She is alert and oriented to person, place, and time. Mental status is at baseline. Labs and cultures: Reviewed and significant for Cr improvement to 1.53, HgB decrease to 7.9 from 8.3 Assessment/Plan Assessment: Monika Ordaz is a 64 y.o. 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 Currently, the patient's condition is good based on improving Cr levels indicating likely response to albumin challenge though with severe cirrhosis of the liver and overall debility. Assessment & Plan Acute kidney injury superimposed on stage 3b chronic kidney disease (CMS/HCC) Chronic kidney disease, stage 3b (CMS/HCC) Cirrhosis of liver with ascites (CMS/HCC) Hx of spontaneous bacterial peritonitis Pleural effusion associated with hepatic disorder LLQ abdominal pain Vasovagal syncope - Creatinine 1.0-1.1 at baseline; Improved to 1.53 from 1.73 - Paracentesis with as needed thoracentesis scheduled for - Of note HgB levels dropped from 8.3 to 7.9 likely dilutional PLAN - Continue to trend creatinine on daily CMP - Continue home lactulose, rifaximin, and ciprofloxacin - Complete Albumin Challenge today 07/03 - 25% infusion 87.5 g q 24 for 1 more dose - Monitor for signs of acute bleed stable at this time - Consult Hepatology if patient worsens - Continue midodrine 15mg TID - Continue daily vit D 1000 U - Strict I&O q4 - Renally dose medications and avoid nephrotoxic agents - Will reach out to IR today to discuss therapeutic para, patient says she is scheduled to get one outpatient tomorrow Pancytopenia - WBC 2.6 (baseline 4.0) with 1.58 absolute neutrophils - RBC 2.56 (baseline 3.0), platelets 43 (baseline 55) - Stable overall PLAN - Continue to monitor - Continue Heparin for DVT prophylaxis - Rheumatology referral outpatient 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 - Patient at this time has elected to pursue Sn[facility] placement and would like to speak with palliative care to learn more about their services - L Leg discomfort is improved PLAN - Delirium protocols - Continue Up to Chair TID, q4 turns - SW to meet with patient to discuss options further - Consult Palliative care - Ongoing GOC discussions Type 2 diabetes mellitus, with long-term current use of insulin (CMS/HCC) Diabetic peripheral neuropathy ([facility]) - Last POCT glucose 150 - 2 Units correction in last 24h none overnight PLAN - Continue Glargine 24 U daily + resistant SSI - Continue to monitor glucose trends Dysphagia Heartburn - Reflux stable PLAN - Continue to hold omeprazole Serum ammonia increased (CMS/HCC) - Last ammonia stable at 61 on 06/30 PLAN - Continue home Lactulose - Recheck ammonia if neurologic change suspected Hypomagnesemia - Mg 2.0 today PLAN - Continue magnesium oxide 400 mg daily - Check Levels Daily Chronic obstructive pulmonary disease (CMS/HCC) JONATHAN treated with BiPAP - Chronic; on home BiPAP, per RT recs 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 (CMS/HCC) Hyperlipidemia - Chronic; Continue to hold Crestor Obesity (BMI 30.0-34.9) - Chronic; Complicates all aspects of care F: PO E: Monitor and replace as necessary N: Adult diet Diet texture: Regular; Carbohydrate restriction: Consistent Carb 2 (80 gm max/meal); Sodium restriction: 2,000 mg Na; Electrolyte Restriction: Renal GI: no PPI DVT prophylaxis: Heparin Lines and Tubes: pIV CODE: Full Code SOCIAL: Currently lives alone sister assists with medications, lives an hour away PT/OT: recommendations: Home with Home Health Consultants: PTOT Nutrition Hepatology Nephrology IR Transplant Disposition: Medically Ready for Discharge:Anticipated in 2-4 Days [] CARLOTTA - Albumin Challenge [] LTC Placement Marcelo Pichardo, MS4 Cosigned by Fabiana Cunningham MD at 07/03/2025 1:34 PM EDT Associated attestation - Fabiana Cunningham MD - 07/03/2025 1:34 PM EDT I saw and evaluated the patient with the medical student. I discussed the case with the medical student and agree with the findings and plan as documented. I personally performed the Exam and MedicalDecision Making. Fabiana Cunningham MD * Care Plan - Deon Fox Jr. RN - 07/03/2025 4:38 AM EDT Problem: Fall Injury Risk Goal: Absence of Fall and Fall-Related Injury Outcome: Ongoing, Progressing Intervention: Identify and Manage Contributors Flowsheets (Taken 07/02/20251999) Medication Review/Management: medications reviewed Self-Care Promotion: BADL personal objects within reach Intervention: Promote Injury-Free Environment Flowsheets (Taken 07/02/20251999) Safety Promotion/Fall Prevention: activity supervised fall prevention program maintained nonskid shoes/slippers when out of bed room organization consistent safety round/check completed Problem: Skin Injury Risk Increased Goal: Skin Health and Integrity Outcome: Ongoing, Progressing Intervention: Optimize Skin Protection Flowsheets Taken 07/03/2025 0433 Activity Management: activity adjusted per tolerance Head of Bed (HOB) Positioning: HOB at 20 degrees Taken 07/02/20251999 Pressure Reduction Techniques: frequent weight shift encouraged Skin Protection: incontinence pads utilized Intervention: Promote and Optimize Oral Intake Flowsheets (Taken 07/02/20251999) Oral Nutrition Promotion: rest periods promoted Nutrition Interventions: food preferences provided Problem: Adult Inpatient Plan of Care Goal: Plan of Care Review Outcome: Ongoing, Progressing Flowsheets Taken 07/03/2025 0433 by Deon Fox Jr., RN Outcome Evaluation: improved strength and adequate urine output Plan of Care Reviewed With: patient Taken 07/02/2025 1843 by Iftikhar Shahid LPN Progress: improving Goal: Patient-Specific Goal (Individualized) Outcome: Ongoing, Progressing Flowsheets (Taken 07/02/2025 1900) Patient/Family-Specific Goals (Include Timeframe): injury free Individualized Care Needs: comfort Anxieties, Fears or Concerns: dc Goal: Absence of Hospital-Acquired Illness or Injury Outcome: Ongoing, Progressing Intervention: Identify and Manage Fall Risk Flowsheets (Taken 07/02/20251999) Safety Promotion/Fall Prevention: activity supervised fall prevention program maintained nonskid shoes/slippers when out of bed room organization consistent safety round/check completed Intervention: Prevent Skin Injury Flowsheets Taken 07/03/2025 0433 Body Position: turned Taken 07/02/20251999 Skin Protection: incontinence pads utilized Intervention: Prevent and Manage VTE (Venous Thromboembolism) Risk Flowsheets (Taken 07/02/20251999) VTE Prevention/Management: education provided Intervention: Prevent Infection Flowsheets (Taken 07/02/20251999) Infection Prevention: hand hygiene promoted Goal: Optimal Comfort and Wellbeing Outcome: Ongoing, Progressing Intervention: Monitor Pain and Promote Comfort Flowsheets (Taken 07/02/20251999) Pain Management Interventions: pain management plan reviewed with patient/caregiver Intervention: Provide Person-Centered Care Flowsheets (Taken 07/02/20251999) Trust Relationship/Rapport: care explained Problem: Acute Kidney Injury/Impairment Goal: Fluid and Electrolyte Balance Outcome: Ongoing, Progressing Intervention: Monitor and Manage Fluid and Electrolyte Balance Flowsheets (Taken 07/02/20251999) Fluid/Electrolyte Management: oral rehydration therapy initiated Goal: Improved Oral Intake Outcome: Ongoing, Progressing Intervention: Promote and Optimize Oral Intake Flowsheets (Taken 07/02/20251999) Oral Nutrition Promotion: rest periods promoted Nutrition Interventions: food preferences provided Goal: Effective Renal Function Outcome: Ongoing, Progressing Intervention: Monitor and Support Renal Function Flowsheets (Taken 07/02/20251999) Stabilization Measures: legs elevated Medication Review/Management: medications reviewed * Care Plan - Iftikhar Shahid LPN - 07/02/2025 6:44 PM EDT Problem: Fall Injury Risk Goal: Absence of Fall and Fall-Related Injury Outcome: Ongoing, Progressing Intervention: Identify and Manage Contributors Flowsheets (Taken 07/02/20251842) Medication Review/Management: medications reviewed Intervention: Promote Injury-Free Environment Flowsheets (Taken 07/02/20251842) Safety Promotion/Fall Prevention: activity supervised Problem: Skin Injury Risk Increased Goal: Skin Health and Integrity Outcome: Ongoing, Progressing Intervention: Optimize Skin Protection Flowsheets (Taken 07/02/20251842) Activity Management: previous patient education reinforced Intervention: Promote and Optimize Oral Intake Flowsheets (Taken 07/02/20251842) Oral Nutrition Promotion: rest periods promoted Problem: Adult Inpatient Plan of Care Goal: Plan of Care Review Outcome: Ongoing, Progressing Flowsheets (Taken 07/02/20251842) Progress: improving Plan of Care Reviewed With: patient Goal: Patient-Specific Goal (Individualized) Outcome: Ongoing, Progressing Flowsheets (Taken 07/02/2025 0800) Patient/Family-Specific Goals (Include Timeframe): no falls during shift Individualized Care Needs: medications Anxieties, Fears or Concerns: discharge Goal: Absence of Hospital-Acquired Illness or Injury Outcome: Ongoing, Progressing Intervention: Identify and Manage Fall Risk Flowsheets (Taken 07/02/20251842) Safety Promotion/Fall Prevention: activity supervised Intervention: Prevent Skin Injury Flowsheets (Taken 07/02/20251842) Body Position: education provided Intervention: Prevent and Manage VTE (Venous Thromboembolism) Risk Flowsheets (Taken 07/02/20251842) VTE Prevention/Management: education provided Intervention: Prevent Infection Flowsheets (Taken 07/02/20251842) Infection Prevention: single patient room provided Goal: Optimal Comfort and Wellbeing Outcome: Ongoing, Progressing Intervention: Monitor Pain and Promote Comfort Flowsheets (Taken 07/02/20251842) Pain Management Interventions: quiet environment facilitated Intervention: Provide Person-Centered Care Flowsheets (Taken 07/02/20251842) Trust Relationship/Rapport: questions answered Problem: Acute Kidney Injury/Impairment Goal: Fluid and Electrolyte Balance Outcome: Ongoing, Progressing Intervention: Monitor and Manage Fluid and Electrolyte Balance Flowsheets (Taken 07/02/20251842) Fluid/Electrolyte Management: fluids provided Goal: Improved Oral Intake Outcome: Ongoing, Progressing Intervention: Promote and Optimize Oral Intake Flowsheets (Taken 07/02/2025 1843) Oral Nutrition Promotion: rest periods promoted Goal: Effective Renal Function Outcome: Ongoing, Progressing Intervention: Monitor and Support Renal Function Flowsheets (Taken 07/02/2025 1843) Medication Review/Management: medications reviewed * Assessment & Plan Note - Marcelo Pichardo - 07/02/2025 5:19 PM EDTAssociated Problem(s): Acute kidney injury superimposed on stage 3b chronic kidney disease (CMS/HCC) (Resolved 07/07/2025) - Creatinine 1.0-1.1 at baseline; worsened to 1.73 from 1.42 - Paracentesis with as needed thoracentesis scheduled for - LLQ discomfort described as better today, she is at her baseline - No further vagal episodes - Orthostatic vitals wnl - Repeat FENa 0.2% indicating prerenal etiology PLAN - Continue to trend creatinine on daily CMP - Continue home lactulose, rifaximin, and ciprofloxacin - Urine Cr Na ordered for FENa as above - Starting albumin challenge today albumin 25% infusion 87.5 g q 24 for 2 doses - Consult Hepatology if patient does not respond to albumin challenge, they are aware of patient - Continue midodrine 10mg TID - Continue daily vit D 1000 U - Strict I&O q4 - Renally dose medications and avoid nephrotoxic agents * Assessment & Plan Note - Marcelo Pichardo - 07/02/2025 5:19 PM EDTAssociated Problem(s): Chronic kidney disease, stage 3b (CMS/HCC) - Creatinine 1.0-1.1 at baseline; worsened to 1.73 from 1.42 - Paracentesis with as needed thoracentesis scheduled for - LLQ discomfort described as better today, she is at her baseline - No further vagal episodes - Orthostatic vitals wnl - Repeat FENa 0.2% indicating prerenal etiology PLAN - Continue to trend creatinine on daily CMP - Continue home lactulose, rifaximin, and ciprofloxacin - Urine Cr Na ordered for FENa as above - Starting albumin challenge today albumin 25% infusion 87.5 g q 24 for 2 doses - Consult Hepatology if patient does not respond to albumin challenge, they are aware of patient - Continue midodrine 10mg TID - Continue daily vit D 1000 U - Strict I&O q4 - Renally dose medications and avoid nephrotoxic agents * Assessment & Plan Note - Marcelo Pichardo - 07/02/2025 5:19 PM EDTAssociated Problem(s): Cirrhosis of liver with ascites (CMS/HCC) - Creatinine 1.0-1.1 at baseline; worsened to 1.73 from 1.42 - Paracentesis with as needed thoracentesis scheduled for - LLQ discomfort described as better today, she is at her baseline - No further vagal episodes - Orthostatic vitals wnl - Repeat FENa 0.2% indicating prerenal etiology PLAN - Continue to trend creatinine on daily CMP - Continue home lactulose, rifaximin, and ciprofloxacin - Urine Cr Na ordered for FENa as above - Starting albumin challenge today albumin 25% infusion 87.5 g q 24 for 2 doses - Consult Hepatology if patient does not respond to albumin challenge, they are aware of patient - Continue midodrine 10mg TID - Continue daily vit D 1000 U - Strict I&O q4 - Renally dose medications and avoid nephrotoxic agents * Assessment & Plan Note - Marcelo Pichardo - 07/02/2025 5:19 PM EDTAssociated Problem(s): Hx of spontaneous bacterial peritonitis - Creatinine 1.0-1.1 at baseline; worsened to 1.73 from 1.42 - Paracentesis with as needed thoracentesis scheduled for - LLQ discomfort described as better today, she is at her baseline - No further vagal episodes - Orthostatic vitals wnl - Repeat FENa 0.2% indicating prerenal etiology PLAN - Continue to trend creatinine on daily CMP - Continue home lactulose, rifaximin, and ciprofloxacin - Urine Cr Na ordered for FENa as above - Starting albumin challenge today albumin 25% infusion 87.5 g q 24 for 2 doses - Consult Hepatology if patient does not respond to albumin challenge, they are aware of patient - Continue midodrine 10mg TID - Continue daily vit D 1000 U - Strict I&O q4 - Renally dose medications and avoid nephrotoxic agents * Assessment & Plan Note - Marcelo Pichardo - 07/02/2025 5:19 PM EDTAssociated Problem(s): Pleural effusion associated with hepatic disorder - Creatinine 1.0-1.1 at baseline; worsened to 1.73 from 1.42 - Paracentesis with as needed thoracentesis scheduled for - LLQ discomfort described as better today, she is at her baseline - No further vagal episodes - Orthostatic vitals wnl - Repeat FENa 0.2% indicating prerenal etiology PLAN - Continue to trend creatinine on daily CMP - Continue home lactulose, rifaximin, and ciprofloxacin - Urine Cr Na ordered for FENa as above - Starting albumin challenge today albumin 25% infusion 87.5 g q 24 for 2 doses - Consult Hepatology if patient does not respond to albumin challenge, they are aware of patient - Continue midodrine 10mg TID - Continue daily vit D 1000 U - Strict I&O q4 - Renally dose medications and avoid nephrotoxic agents * Assessment & Plan Note - Marcelo Pichardo - 07/02/2025 5:19 PM EDTAssociated Problem(s): LLQ abdominal pain (Resolved 07/09/2025) - Creatinine 1.0-1.1 at baseline; worsened to 1.73 from 1.42 - Paracentesis with as needed thoracentesis scheduled for - LLQ discomfort described as better today, she is at her baseline - No further vagal episodes - Orthostatic vitals wnl - Repeat FENa 0.2% indicating prerenal etiology PLAN - Continue to trend creatinine on daily CMP - Continue home lactulose, rifaximin, and ciprofloxacin - Urine Cr Na ordered for FENa as above - Starting albumin challenge today albumin 25% infusion 87.5 g q 24 for 2 doses - Consult Hepatology if patient does not respond to albumin challenge, they are aware of patient - Continue midodrine 10mg TID - Continue daily vit D 1000 U - Strict I&O q4 - Renally dose medications and avoid nephrotoxic agents * Assessment & Plan Note - Marcelo Pichardo - 07/02/2025 5:19 PM EDTAssociated Problem(s): Vasovagal syncope (Resolved 07/09/2025) - Creatinine 1.0-1.1 at baseline; worsened to 1.73 from 1.42 - Paracentesis with as needed thoracentesis scheduled for - LLQ discomfort described as better today, she is at her baseline - No further vagal episodes - Orthostatic vitals wnl - Repeat FENa 0.2% indicating prerenal etiology PLAN - Continue to trend creatinine on daily CMP - Continue home lactulose, rifaximin, and ciprofloxacin - Urine Cr Na ordered for FENa as above - Starting albumin challenge today albumin 25% infusion 87.5 g q 24 for 2 doses - Consult Hepatology if patient does not respond to albumin challenge, they are aware of patient - Continue midodrine 10mg TID - Continue daily vit D 1000 U - Strict I&O q4 - Renally dose medications and avoid nephrotoxic agents * Assessment & Plan Note - Marcelo Pichardo - 07/02/2025 5:19 PM EDTAssociated Problem(s): Physical debility - PTOT recs home health 6 days ago - Patient unable to be placed on transplant list if [facility] is primary address, [place] be fine - Per transplant team: Patient needs a primary caregiver to go with her to see transplant SW to getplaced onto list - After discussion with patient and family, sister is not able to care for her and neither is son at this time - Patient at this time has elected to pursue [facility] Nurse Pract[facility]er [facility] placement and would like to speak with palliative care to learn more about their services - New PT recs - home with home health - L Leg discomfort appears to have improved some today PLAN - Transplant recs as above, appreciate the assistance - Delirium protocols - Continue Up to Chair TID, q4 turns - New PT OT consult placed to get updated PT OT recs as above - SW to meet with patient to discuss options further - Consider Palliative consult AM 07/03 - Ongoing GOC discussions * Assessment & Plan Note - Marcelo Pichardo - 07/02/2025 5:19 PM EDTAssociated Problem(s): Self-care deficit - PTOT recs home health 6 days ago - Patient unable to be placed on transplant list if [facility] is primary address, [place] be fine - Per transplant team: Patient needs a primary caregiver to go with her to see transplant SW to getplaced onto list - After discussion with patient and family, sister is not able to care for her and neither is son at this time - Patient at this time has elected to pursue [facility] placement and would like to speak with palliative care to learn more about their services - New PT recs - home with home health - L Leg discomfort appears to have improved some today PLAN - Transplant recs as above, appreciate the assistance - Delirium protocols - Continue Up to Chair TID, q4 turns - New PT OT consult placed to get updated PT OT recs as above - SW to meet with patient to discuss options further - Consider Palliative consult AM 813 - Ongoing GOC discussions * Assessment & Plan Note - Marcelo Pichardo - 07/02/2025 5:19 PM EDTAssociated Problem(s): 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 - PTOT recs home health 6 days ago - Patient unable to be placed on transplant list if [place] is primary address, [place] be fine - Per transplant team: Patient needs a primary caregiver to go with her to see transplant SW to getplaced onto list - After discussion with patient and family, sister is not able to care for her and neither is son at this time - Patient at this time has elected to pursue [facility] placement and would like to speak with palliative care to learn more about their services - New PT recs - home with home health - L Leg discomfort appears to have improved some today PLAN - Transplant recs as above, appreciate the assistance - Delirium protocols - Continue Up to Chair TID, q4 turns - New PT OT consult placed to get updated PT OT recs as above - SW to meet with patient to discuss options further - Consider Palliative consult AM 07/03 - Ongoing GOC discussions * Progress Notes - Yahir Fraser - 07/02/2025 11:37 AM EDT Occupational Therapy Re-Assessment Patient Name: Monika Ordaz Today's Date: 07/02/2025 OT Discharge Recommendations: Home with 24 hour assistance, Home health PT, Home health OT Equipment Recommended: Patient owns appropriate equipment History Monika Ordaz is 64 y.o. female admitted 06/25/2025 for work-up of Acute kidney injury superimposed on stage 3b chronic kidney disease (CMS/HCC). Hospital Course 1. CARLOTTA (acute kidney injury) (CMS/HCC) 2. Acute kidney injury superimposed on stage 3b chronic kidney disease (CMS/HCC) 3. Chronic kidney disease, stage 3b (CMS/HCC) 4. Cirrhosis of liver with ascites, unspecified hepatic cirrhosis type (CMS/HCC) 5. Hx of spontaneous bacterial peritonitis 6. Physical debility 7. Pancytopenia 8. Self-care deficit Procedures Past Medical History Patient has a past medical history of ADHD (attention deficit hyperactivity disorder), Allergic, Anxiety disorder, unspecified, Bleeding gums, Blood in urine, Cataract, Chronic kidney disease, Cirrhosis (CMS/HCC), Colon cancer screening (09/20/2019), Coronary artery disease, Depression (1995), Diabetes mellitus type 2 in obese (04/22/2015), Diabetic nephropathy ([facility]), Dry mouth, GERD (gastroesophageal reflux disease), Headache, Heart murmur, HL (hearing loss), Hypoparathyroidism, Inflammatory bowel disease, Irritable bowel syndrome, Jaw pain, Obesity, Osteoporosis, Peptic ulceration, Personal history of other diseases of the digestive system, Personal history of other diseases of the digestive system, Personal history of other diseases of the nervous system and sense organs, Personal history of other endocrine, nutritional and metabolic disease, Personal history of other mental and behavioral disorders, Personal history of urinary (tract) infections, Pre-liver transplant, listed, Pure hypercholesterolemia, unspecified, Sleep apnea, Thyroid condition, Type 2 diabetes mellitus, Unspecified asthma, uncomplicated, and Unspecified osteoarthritis, unspecified site. Past Surgical History Patient has a past surgical history that includes Knee surgery (Bilateral); oral surgery (N/A); Hysterectomy (N/A); Bladder surgery (N/A); Appendectomy (1979); Cholecystectomy (1979); Breast biopsy (2010); Cataract extraction (Bilateral, 2016); Bunionectomy (Right); Esophagogastroduodenoscopy; Other surgical history (2014); [place] tooth extraction; Breast surgery (2009); and Root canal. Precautions Medical Precautions: Fall precautions Subjective Pt agreeable to OT re-eval. Pt reported she feels weaker. Participants in Care Family/Caregiver Present: No Bench Assembler Battery: Not Applicable Presentation Oxygen Therapy: None (Room air) Lines and Tubes: Intravenous access Pre-Session: Supine, Head of bed elevated, Lines intact Pre-Session Comments: RN gave consent to session. Post-Session: Sitting in chair, Chair alarm, Lines intact, Call light in reach, RN notified Post-Session Comments: All needs met and within reach Home Living/Set-Up Lives With: Sister Home Type: House (Sister's home) Home Adaptive Equipment: Rollator, Rolling walker, Cane Home Layout: One level (Ramp to enter plus threshold step) Bathroom: Tub/Shower: Walk-in shower (suction cup grab bar) Bathroom: Toilet: Tall Bathroom: Accessibility: Accessible Home Living Comments: Pt reports that her sister discourages her from using rollator so she doesn't depend on it so she furniture walks through home as a result. Prior Level of Function Receives Help From: (Sister) Level of Mobility: Ambulatory- community Mobility [place]: Independent gait with device History of Falls: No ADL Performance: Independent Patient/Family Goals Statement Return home with assist Objective Pain No complaints of pain Delirium Screening RASS: Alert and calm Confusion Assessment Method-ICU (CAM-ICU/PCAM-ICU) Feature 3: Altered Level of Consciousness: Negative Cognition Overall Cognitive Status: Within Functional Limits Arousal/Alertness: Appropriate responses to stimuli Mood/Behavior: Alert Orientation Level: Oriented X4 Single Step Commands: Consistently Multi-Step Commands: Consistently Method of Communication: Verbal Right Upper Extremity Examination RUE ROM Assessment RUE Assessment: Within Functional Limits Manual Muscle Testing - RUE: Within functional limits Left Upper Extremity Examination LUE ROM Assessment LUE Assessment: Within Functional Limits Manual Muscle Testing - LUE: Within functional limits Right Lower Extremity Examination RLE ROM Assessment RLE Assessment: Within Functional Limits Manual Muscle Testing - RLE: Within functional limits Left Lower Extremity Examination LLE Assessment: Within Functional Limits Manual Muscle Testing: Within functional limits Bed Mobility Bed Mobility Exam: Scooting/Bridging Level of [place]: Stand-by assist Physical/Nonphysical Assist: Supervision Assistive Device: Bed rails Bed Mobility Exam: Supine to Sit Level of [place]: Stand-by assist Physical/Nonphysical Assist: Supervision, HOB elevated Assistive Device: Bed rails Transfers Transfer Exam: Sit to stand Level of [place]: Contact guard Physical/Nonphysical Assist: Supervision, Verbal Cues, Minimal cues Assistive Device: Rollator Transfer Exam: Stand to Sit Level of [place]: Stand-by assist Physical/Nonphysical Assist: Supervision, Verbal Cues, Minimal cues Assistive Device: Rollator Transfer Exam: Bed to Chair/Chair to Bed Level of [place]: Contact guard Physical/Nonphysical Assist: Supervision, Verbal Cues, Minimal cues Assistive Device: Rollator Toilet Transfer Level of [place]: Contact guard Physical/Nonphysical Assist: Supervision, Verbal Cues Type of Transfer: Ambulation, To toilet Assistive Device: Rollator Self-Care Interventions Self Care/Home Management (ADLs) Time Entry: 24 Self-Care Interventions: Pt seen to complete her ADL's and functional mobility tasks for increased safety and IND. OT provided room setup for safety and line management in order to promote a safe environment. Pt required min cues for safety and use of rollator. Grooming Grooming Level of Assistance: Independent, Setup Grooming Where Assessed: Standing sinkside, Sitting sinkside Grooming Interventions: Pt completed hand hygiene, washing her face and brushing her teeth while standing/sitting at sink side with SBA. Pt required cues for bathroom safety, hand placement, and pacing herself. Pt was encouraged to use her rollator at all times for increased safety. Secondary to increased fatigue pt had to sit after 3 min in order to finish her grooming tasks. UE Dressing UE Dressing Level of Assistance: Independent UE Dressing Where Assessed: Edge of bed UE Dressing Interventions: to manage her gown and during toileting Lower Extremity Dressing Sock Level of Assistance: Close supervision, Setup LE Dressing Where Assessed: Edge of bed LE Dressing Interventions: Pt was able to adjust her socks while sitting at EOB. Toileting Toileting Level of Assistance: SBA, Setup Where Assessed: Toilet Toileting Interventions: Pt was able to manage use of toilet paper but needed to dinkey press operator order to clean georgina area and buttocks. Pt required extra time and rest breaks. Standardized Assessments [facility] 6-Click Daily Activities Help from Other: Don/Doff Regular Lower Body Clothings: None Help From Other: Toileting: Little Help From Other: Don/Doff Upper Body Clothings: None Help From Other: Grooming: None Help From Other: Eating Meals: None Assessment Pt has demonstrated increased weakness since her evaluation secondary to not getting out of the bed. Pt demonstrated decreased activity tolerance and required extra time and cues for pacing, rest breaks and safety. Pt will benefit from skilled OT services at this time for increased safety and IND with valued occupations. OT Findings: Impaired ADL performance, Impaired IADL performance, Decreased endurance/ventilation/gas exchange Evaluation/Treatment Tolerance: Patient limited by fatigue Rehab Potential: Good, to achieve stated therapy goals Barriers to Discharge: Comorbidities OT Recommendations Discharge Destination: Home with 24 hour assistance, Home health PT, Home health OT Discharge Equipment: Patient owns appropriate equipment Plan Planned OT Interventions ADL retraining, IADL retraining, Balance training, Bed mobility Training, Strengthening, Functionalmobility, Transfer training OT Frequency 2 - 5 times per week OT Duration 2 weeks OT GOAL DETAILS DATE ASSESSED STATUS PROGRESS OT Goal 1: Pt will complete balance activity for >10 min with SBA. OT Goal 1 Established Date: 07/02/25 OT Goal 1 Time Frame: 2 weeks OT Goal 2: Pt will complete LB dressing sitting at EOB with SBA and no rest breaks. OT Goal 2 Established Date: 07/02/25 OT Goal 2 Time Frame: 2 weeks OT Goal 3: Pt will complete endurance activity for >10 min with 1 rest break. OT Goal 3 Established Date: 07/02/25 OT Goal 3 Time Frame: 2 weeks OT Goal 4: Pt will complete all functional transfers at rollator level with SBA. OT Goal 4 Established Date: 07/02/25 OT Goal 4 Time Frame: 2 weeks Written by Yahir Fraser on 07/02/25 at 1:28 PM. * Progress Notes - Fredy Otero - 07/02/2025 11:36 AM EDT Physical Therapy Re-Assessment Patient Name: Monika Ordaz Today's Date: 07/02/2025 PT Discharge Recommendations: Home with 24 hour assistance, Home health PT, Home health OT Equipment Recommended: Patient owns appropriate equipment History Monika Ordaz is 64 y.o. female admitted 06/25/2025 for work-up of Acute kidney injury superimposed on stage 3b chronic kidney disease (CMS/HCC). Hospital Course 1. CARL[place] (acute kidney injury) (CMS/HCC) 2. Acute kidney injury superimposed on stage 3b chronic kidney disease (CMS/HCC) 3. Chronic kidney disease, stage 3b (CMS/HCC) 4. Cirrhosis of liver with ascites, unspecified hepatic cirrhosis type (CMS/HCC) 5. Hx of spontaneous bacterial peritonitis 6. Physical debility 7. Pancytopenia 8. Self-care deficit Procedures Past Medical History Patient has a past medical history of ADHD (attention deficit hyperactivity disorder), Allergic, Anxiety disorder, unspecified, Bleeding gums, Blood in urine, Cataract, Chronic kidney disease, Cirrhosis (CMS/HCC), Colon cancer screening (09/20/2019), Coronary artery disease, Depression (1995), Diabetes mellitus type 2 in obese (04/22/2015), Diabetic nephropathy ([facility]), Dry mouth, GERD (gastroesophageal reflux disease), Headache, Heart murmur, HL (hearing loss), Hypoparathyroidism, Inflammatory bowel disease, Irritable bowel syndrome, Jaw pain, Obesity, Osteoporosis, Peptic ulceration, Personal history of other diseases of the digestive system, Personal history of other diseases of the digestive system, Personal history of other diseases of the nervous system and sense organs, Personal history of other endocrine, nutritional and metabolic disease, Personal history of other mental and behavioral disorders, Personal history of urinary (tract) infections, Pre-liver transplant, listed, Pure hypercholesterolemia, unspecified, Sleep apnea, Thyroid condition, Type 2 diabetes mellitus, Unspecified asthma, uncomplicated, and Unspecified osteoarthritis, unspecified site. Past Surgical History Patient has a past surgical history that includes Knee surgery (Bilateral); oral surgery (N/A); Hysterectomy (N/A); Bladder surgery (N/A); Appendectomy (1979); Cholecystectomy (1979); Breast biopsy (2010); Cataract extraction (Bilateral, 2016); Bunionectomy (Right); Esophagogastroduodenoscopy; Other surgical history (2014); [place] tooth extraction; Breast surgery (2009); and Root canal. Precautions Medical Precautions: Fall precautions Subjective Pt agreeable to participating in session. States she is having an off day today. Participants in Care Family/Caregiver Present: No Bench Assembler Battery: Not Applicable Presentation Oxygen Therapy: None (Room air) Lines and Tubes: Intravenous access Pre-Session: Supine, Head of bed elevated, Bed alarm, Lines intact Pre-Session Comments: RN gave consent to session. Post-Session: Sitting in chair, Chair alarm, Lines intact, RN notified, Call light in reach Post-Session Comments: All needs met and within reach, left in care of NCT. Home Living/Set-Up Lives With: Sister Home Type: House (Sister's home) Home Adaptive Equipment: Rollator, Rolling walker, Cane Home Layout: One level (Ramp to enter plus threshold step) Bathroom: Tub/Shower: Walk-in shower (suction cup grab bar) Bathroom: Toilet: Tall Bathroom: Accessibility: Accessible Home Living Comments: Pt reports that her sister discourages her from using rollator so she doesn't depend on it so she furniture walks through home as a result. Prior Level of Function Receives Help From: (Sister) Level of Mobility: Ambulatory- community Mobility [place]: Independent gait with device History of Falls: No ADL Performance: Independent Patient/Family Goals Objective Pain No pain reported. Delirium Screening RASS: Alert and calm Confusion Assessment Method-ICU (CAM-ICU/PCAM-ICU) Feature 3: Altered Level of Consciousness: Negative Cognition Overall Cognitive Status: Within Functional Limits Arousal/Alertness: Appropriate responses to stimuli Mood/Behavior: Alert Orientation Level: Oriented X4 Single Step Commands: Consistently Multi-Step Commands: Consistently Method of Communication: Verbal Right Upper Extremity Examination RUE ROM Assessment RUE Assessment: Within Functional Limits Manual Muscle Testing - RUE: Within functional limits Left Upper Extremity Examination LUE ROM Assessment LUE Assessment: Within Functional Limits Manual Muscle Testing - LUE: Within functional limits Right Lower Extremity Examination RLE ROM Assessment RLE Assessment: Within Functional Limits Manual Muscle Testing - RLE: Within functional limits Sensation Light Touch: Right Lower Extremity: Mild impairment (N/T in foot (pt reports neuropathy at baseline)) Left Lower Extremity Examination LLE Assessment: Within Functional Limits Manual Muscle Testing: Within functional limits Sensation Light Touch: Left Lower Extremity: Mild impairment (N/T in foot (pt reports neuropathy at baseline)) Bed Mobility Bed Mobility Exam: Scooting/Bridging Level of [place]: Stand-by assist Physical/Nonphysical Assist: Supervision Assistive Device: Bed rails Bed Mobility Exam: Supine to Sit Level of [place]: Stand-by assist Physical/Nonphysical Assist: Supervision, HOB elevated Assistive Device: Bed rails Transfers Transfer Exam: Sit to stand Level of [place]: Contact guard Physical/Nonphysical Assist: Supervision, Verbal Cues, Minimal cues Assistive Device: Rollator Transfer Exam: Stand to Sit Level of [place]: Stand-by assist Physical/Nonphysical Assist: Supervision, Verbal Cues, Minimal cues Assistive Device: Rollator Toilet Transfer Level of [place]: Contact guard Physical/Nonphysical Assist: Supervision, Verbal Cues, Minimal cues Type of Transfer: Ambulation, To toilet Assistive Device: Rollator Balance Static Sitting Balance Static Sitting-Balance Support: Right upper extremity support, Left upper extremity support, Feet supported Static Sitting-Level of Assistance: Supervision Dynamic Sitting Balance Dynamic Sitting-Balance Support: Right upper extremity support, Left upper extremity support, Feet supported Dynamic Sitting-Balance: Lateral weight shifts, Anterior/Posterior weight shifts Level of Assistance: Supervision Static Standing Balance Static Standing-Balance Support: Right upper extremity support, Left upper extremity support Static Standing-Level of Assistance: Standby assist Dynamic Standing Balance Dynamic Standing-Balance Support: Right upper extremity support, Left upper extremity support Dynamic Standing-Balance: Lateral weight shifts, Anterior/Posterior weight shifts Dynamic Standing Level of Assistance: Contact guard Therapeutic Activity (15 minutes) Cueing for safe hand placement, AD positioning, and anterior weight shifting prior to initiating transfers from multiple transfer surfaces (bed, toilet, rollator). Time required to assess vital signsto measure pt response to interventions, pt reported mild dizziness after amb. BP assessed in sitting and 106/64 (76), NCT aware. Education provided regarding PT POC and discharge recommendations as well as importance of continuing to mobilize with nursing staff to reduce unwanted deconditioning, pt verbalized her understanding. Gait Training (23 minutes) Device: Rollator, No device Assistance: Contact guard assist, Standby assist Distance: 150ft (rollator), 10ft (no device) Gait Analysis: Shuffling gait pattern, decreased gait speed, flexed posture with downward gaze. Pt required 2x seated rest breaks on rollator d/t nausea and feeling like her head was swimming . No overt LOB noted. Gait Training Interventions: Cueing for rollator management, pacing when turning, increased gait speed, positioning rollator against solid surface when sitting to rest. Standardized Assessments Standardized Assessments Standardized Assessments: [facility] 6-Clicks Mobility Assessment [facility] 6-Clicks Mobility Assessment Difficulty patient has turning over in bed (including adjusting bedclothes, sheets, and blankets)?:None Difficulty patient has sitting down on and standing up from a chair with arms (wheelchair, bedside commode, etc.)?: None Difficulty patient has moving from lying on back to sitting on the side of the bed?: None How much help does the patient need moving to and from a bed to a chair (including a wheelchair)?: None How much help does the patient need to walk in hospital room?: None How much help does the patient need climbing 3-5 steps with a railing?: A little [facility] 6-Clicks Mobility Assessment Total : 23 Assessment Pt participated in non-billable PT reassessment as she was previously not on PT caseload. Pt demonstrated the ability to amb a functional household distance with use of rollator and SBA/CGA for safety. Asked if pt has been utilizing nursing staff to amb regularly since initial PT evaluation to reduce deconditioning, pt stated not really . Formal recommendations remain home with 24 hour assist and home health PT/OT. Should pt not have 24 hour assistance available to her at discharge her needs may be better met at LTC facility. Pt will continue to benefit from skilled PT while IP in order to address impairments and facilitate the highest level of independence with mobility possible. Impairments: Decreased strength, Impaired balance, Impaired functional mobility/transfers, Impairedgait dynamics/performance Activity Limitations: Inability to ambulate independently, Inability to transfer independently, Inability to complete ADLs independently Participation Restrictions: Self-care, Home management Activity Tolerance: Standing, Walking Evaluation/Treatment Tolerance: Patient limited by fatigue Diagnosis: Impaired functional mobility Rehab Potential: Good, to achieve stated therapy goals PT Recommendations Discharge Destination: Home with 24 hour assistance, Home health PT, Home health OT Discharge Equipment: Patient owns appropriate equipment Plan Planned PT Interventions Balance training, Bed mobility training, Gait training, Transfer training, Neuromuscular re-education, Stretching, Strengthening, ROM, Functional Mobility PT Frequency 2 - 5 times per week PT Duration 2 weeks Goals PT GOAL DETAILS DATE ASSESSED STATUS PROGRESS PT Goal 1: Pt will demonstrate the ability to perform transfers with SBA and LRAD PT Goal 1 Established Date: 07/02/25 PT Goal 1 Time Frame: 2 weeks PT Goal 2: Pt will demonstrate the ability to amb 300ft with SBA and LRAD PT Goal 2 Established Date: 07/02/25 PT Goal 2 Time Frame: 2 weeks PT Goal 3: Pt will demonstrate the ability to tolerate 15 minutes in total of static/dynamic standing activity with SBA and LRAD PT Goal 3 Established Date: 07/02/25 PT Goal 3 Time Frame: 2 weeks Written by Fredy Otero on 07/02/25 at 1:25 PM. * Assessment & Plan Note - Marcelo Pichardo - 07/02/2025 9:13 AM EDTAssociated Problem(s): Pancytopenia - WBC 3.07 (baseline 4.0) with 1.66 absolute neutrophils - RBC 2.67 (baseline 3.0), platelets 51 (baseline 55) - Stable overall PLAN - Continue to monitor - Continue Heparin for DVT prophylaxis - Rheumatology referral outpatient * Assessment & Plan Note - Marcelo Pichardo - 07/02/2025 9:13 AM EDTAssociated Problem(s): Type 2 diabetes mellitus, with long-term current use of insulin ([facility]) - Last POCT glucose 115 - 6 Units correction in last 24h none overnight or today PLAN - Continue Glargine 24 U daily + resistant SSI - Continue to monitor glucose trends * Assessment & Plan Note - Marcelo Pichardo - 07/02/2025 9:13 AM EDTAssociated Problem(s): Diabetic peripheral neuropathy ([facility]) - Last POCT glucose 115 - 6 Units correction in last 24h none overnight or today PLAN - Continue Glargine 24 U daily + resistant SSI - Continue to monitor glucose trends * Assessment & Plan Note - Marcelo Pichardo - 07/02/2025 9:13 AM EDTAssociated Problem(s): Dysphagia - Reflux stable PLAN - Continue to hold omeprazole * Assessment & Plan Note - Marcelo Pichardo - 07/02/2025 9:13 AM EDTAssociated Problem(s): Heartburn - Reflux stable PLAN - Continue to hold omeprazole * Assessment & Plan Note - Marcelo Pichardo - 07/02/2025 9:13 AM EDTAssociated Problem(s): Serum ammonia increased (CMS/HCC) - Last ammonia stable at 61 on 06/30 PLAN - Continue home Lactulose - Recheck ammonia if neurologic change suspected * Assessment & Plan Note - Marcelo Pichardo - 07/02/2025 9:13 AM EDTAssociated Problem(s): Hypomagnesemia (Resolved 07/09/2025) - Mg 1.8 today - Elected to hold IV repletion given oral Mg regimen PLAN - Continue magnesium oxide 400 mg daily - Check Levels Daily * Assessment & Plan Note - Marcelo Pichardo - 07/02/2025 9:13 AM EDTAssociated Problem(s): Chronic obstructive pulmonary disease ([facility]) - Chronic; on home BiPAP, per RT recs * Assessment & Plan Note - Marcelo Pichardo - 07/02/2025 9:13 AM EDTAssociated Problem(s): JONATHAN treated with BiPAP - Chronic; on home BiPAP, per RT recs * Assessment & Plan Note - Marcelo Pichardo - 07/02/2025 9:13 AM EDTAssociated Problem(s): 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 Subjective Monika Ordaz is a 64 y.o. female who was seen and evaluated on 07/02/2025. Currently on HospitalDay Hospital Day: 8. NAEON. No concerns from Nursing. This AM: Patient states she feels okay . No further vagal episodes. No new complaints. She overallfeels at her baseline. She was told by the transplant team that she [place] [facility] [place], but she could go to [facility]. They also told patient she would need to meet with their SW team and have a primary caregiver before she could be placed on the list. She believes her sister is the only person that could potentially fill this role. She would like to go to rehab if it is covered. Denies abdominal pain though does feel like she is getting some fluid on and getting closer to her Paracentesis day. Had a BM yesterday. L leg neuropathic pain improved some today. Denies dysuria, chest pain, dyspnea, syncope, leg swelling, and nausea/vomiting. No acutecomplaints otherwise. On revisit in afternoon with patient, sister, and mother it is determined that patient sister will not be able to take care of her medical needs. She has attempted to do so in the past but she lives an hour away and currently takes care of her mother and disabled son. After a long discussion with patient regarding her options and after conferring with family patient has ultimately decided she would like to pursue halfway care placement at this time. Review of Systems Additional review of systems negative except per HPI. Objective Visit Vitals BP 95/54 (BP Location: Right arm, Patient Position: Sitting) Pulse 62 Temp 36.7 ??C (98.1 ??F) (Oral) Resp 16 Ht 1.651 m (5' 5 ) Wt 82.1 kg (181 lb) SpO2 95% BMI 30.12 kg/m?? OB Status Postmenopausal Smoking Status Never BSA 1.94 m?? Physical Exam Constitutional: General: She is not in acute distress. HENT: Head: Normocephalic. Nose: Nose normal. Eyes: General: No scleral icterus. Conjunctiva/sclera: Conjunctivae normal. Cardiovascular: Rate and Rhythm: Normal rate and regular rhythm. Pulses: Normal pulses. Heart sounds: Normal heart sounds. Pulmonary: Effort: Pulmonary effort is normal. No respiratory distress. Breath sounds: Normal breath sounds. Abdominal: General: There is distension. Palpations: Abdomen is soft. Tenderness: There is no abdominal tenderness. There is no guarding or rebound. Musculoskeletal: Right lower leg: No edema. Left lower leg: No edema. Skin: Capillary Refill: Cap refill 3-4 seconds Coloration: Skin is pale. Skin is not jaundiced. Neurological: General: No focal deficit present. Mental Status: She is alert and oriented to person, place, and time. Mental status is at baseline. Labs and cultures: Reviewed and significant for Cr increase to 1.73, HgB 8.3 from 8.6 ANC 1.66 MELD3.0: 25 Imaging/diagnostic studies: Reviewed and significant for Orthostatic BP measurements negative for orthostasis Assessment/Plan Assessment: Monika Ordaz is a 64 y.o. female with PMH COPD, CKD stage 3b, CAD, T2DM with diabetic neuropathy, dysphagia, obesity, JONATHAN, HLD, cirrhosis with ascites, esophageal varices, portal HTN,IBS C/D, Rheumatoid Arthritis with positive Rf, and SLE admitted on 06/25/2025 for CARLOTTA in the settingof Cirrhosis with Ascites now on Hospital Day: 8 requiring ongoing hospitalization for CARLOTTA and Debility. Currently, the patient's condition is fair based on clinical stability from a symptomatic standpoint though with worsening Cr values and significant debility. Assessment & Plan Acute kidney injury superimposed on stage 3b chronic kidney disease (CMS/HCC) Chronic kidney disease, stage 3b (CMS/HCC) Cirrhosis of liver with ascites (CMS/HCC) Hx of spontaneous bacterial peritonitis Pleural effusion associated with hepatic disorder LLQ abdominal pain Vasovagal syncope - Creatinine 1.0-1.1 at baseline; worsened to 1.73 from 1.42 - Paracentesis with as needed thoracentesis scheduled for - LLQ discomfort described as better today, she is at her baseline - No further vagal episodes - Orthostatic vitals wnl - Repeat FENa 0.2% indicating prerenal etiology PLAN - Continue to trend creatinine on daily CMP - Continue home lactulose, rifaximin, and ciprofloxacin - Urine Cr Na ordered for FENa as above - Starting albumin challenge today albumin 25% infusion 87.5 g q 24 for 2 doses - Consult Hepatology if patient does not respond to albumin challenge, they are aware of patient - Continue midodrine 10mg TID - Continue daily vit D 1000 U - Strict I&O q4 - Renally dose medications and avoid nephrotoxic agents Pancytopenia - WBC 3.07 (baseline 4.0) with 1.66 absolute neutrophils - RBC 2.67 (baseline 3.0), platelets 51 (baseline 55) - Stable overall PLAN - Continue to monitor - Continue Heparin for DVT prophylaxis - Rheumatology referral outpatient 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 - PTOT recs home health 6 days ago - [place] unable to be [place] [facility] fine - Per transplant team: Patient needs a primary caregiver to go with her to see transplant SW to getplaced onto list - After discussion with patient and family, sister is not able to care for her and neither is son at this time - Patient at this time has elected to pursue [facility] placement and would like to speak with palliative care to learn more about their services - New PT recs - home with home health - L Leg discomfort appears to have improved some today PLAN - Transplant recs as above, appreciate the assistance - Delirium protocols - Continue Up to Chair TID, q4 turns - New PT OT consult placed to get updated PT OT recs as above - SW to meet with patient to discuss options further - Consider Palliative consult AM 07/03 - Ongoing GOC discussions Type 2 diabetes mellitus, with long-term current use of insulin (CMS/HCC) Diabetic peripheral neuropathy ([facility]) - Last POCT glucose 115 - 6 Units correction in last 24h none overnight or today PLAN - Continue Glargine 24 U daily + resistant SSI - Continue to monitor glucose trends Dysphagia Heartburn - Reflux stable PLAN - Continue to hold omeprazole Serum ammonia increased ([facility]) - Last ammonia stable at 61 on 06/30 PLAN - Continue home Lactulose - Recheck ammonia if neurologic change suspected Hypomagnesemia - Mg 1.8 today - Elected to hold IV repletion given oral Mg regimen PLAN - Continue magnesium oxide 400 mg daily - Check Levels Daily Chronic obstructive pulmonary disease ([facility]) JONATHAN treated with BiPAP - Chronic; on home BiPAP, per RT recs 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 ([facility]) Hyperlipidemia - Chronic; Continue to hold Crestor Obesity (BMI 30.0-34.9) - Chronic; Complicates all aspects of care F: PO E: Monitor and replace as necessary N: Adult diet Diet texture: Regular; Carbohydrate restriction: Consistent Carb 2 (80 gm max/meal); Electrolyte Restriction: Renal GI: no PPI DVT prophylaxis: Heparin Lines and Tubes: pIV CODE: Full Code SOCIAL: Currently lives alone sister assists with medications and appointments though lives [place] PT/OT: consulted, appreciate recommendations Consultants: PTOT Nutrition Hepatology Nephrology IR Transplant Disposition: Medically Ready for Discharge:Anticipated in 2-4 Days [] CARLOTTA - Albumin Challenge [] GOC ocean transportation intermediary care vs home on transplant list Marcelo Pichardo, MS4 Cosigned by Fabiana Cunningham MD at 07/03/2025 1:32 PM EDT Associated attestation - Fabiana Cunningham MD - 07/03/2025 1:32 PM EDT I saw and evaluated the patient with the medical student. I discussed the case with the medical student and agree with the findings and plan as documented. I personally performed the Exam and MedicalDecision Making. Fabiana Cunningham MD * Nursing Note - Deon Fox Jr., RN - 07/02/2025 4:00 AM EDT Pt resting in bed, eyes closed, breathing easily. Continue to monitor * Care Plan - Deon Fox Jr., RN - 07/02/2025 3:44 AM EDT Problem: Fall Injury Risk Goal: Absence of Fall and Fall-Related Injury Outcome: Ongoing, Progressing Intervention: Identify and Manage Contributors Flowsheets (Taken 07/02/2025338) Medication Review/Management: medications reviewed Self-Care Promotion: BADL personal objects within reach Intervention: Promote Injury-Free Environment Flowsheets (Taken 07/01/20251999) Safety Promotion/Fall Prevention: activity supervised nonskid shoes/slippers when out of bed room organization consistent safety round/check completed Problem: Skin Injury Risk Increased Goal: Skin Health and Integrity Outcome: Ongoing, Progressing Intervention: Optimize Skin Protection Flowsheets Taken 07/02/2025338 by Deon Fox Jr., RN Skin Protection: incontinence pads utilized Taken 07/01/20251999 by Deon Fox Jr., PARK Activity Management: bedrest ambulated to bathroom Taken 06/28/2025 1240 by Aubrey Eason LPN Pressure Reduction Devices: positioning supports utilized Intervention: Promote and Optimize Oral Intake Flowsheets (Taken 07/02/2025338) Oral Nutrition Promotion: rest periods promoted Nutrition Interventions: food preferences provided Problem: Adult Inpatient Plan of Care Goal: Plan of Care Review Outcome: Ongoing, Progressing Goal: Patient-Specific Goal (Individualized) Outcome: Ongoing, Progressing Goal: Absence of Hospital-Acquired Illness or Injury Outcome: Ongoing, Progressing Intervention: Identify and Manage Fall Risk Flowsheets (Taken 07/01/20251999) Safety Promotion/Fall Prevention: activity supervised nonskid shoes/slippers when out of bed room organization consistent safety round/check completed Intervention: Prevent Skin Injury Flowsheets Taken 07/02/2025338 Skin Protection: incontinence pads utilized Taken 07/01/20251999 Body Position: weight shifting Intervention: Prevent and Manage VTE (Venous Thromboembolism) Risk Flowsheets (Taken 07/01/20251999) VTE Prevention/Management: education provided Intervention: Prevent Infection Flowsheets (Taken 07/02/2025338) Infection Prevention: hand hygiene promoted Goal: Optimal Comfort and Wellbeing Outcome: Ongoing, Progressing Intervention: Monitor Pain and Promote Comfort Flowsheets (Taken 07/02/2025338) Pain Management Interventions: pain management plan reviewed with patient/caregiver Intervention: Provide Person-Centered Care Flowsheets (Taken 07/02/2025338) Trust Relationship/Rapport: care explained Problem: Acute Kidney Injury/Impairment Goal: Fluid and Electrolyte Balance Outcome: Ongoing, Progressing Intervention: Monitor and Manage Fluid and Electrolyte Balance Flowsheets (Taken 07/02/2025338) Fluid/Electrolyte Management: oral rehydration therapy initiated Goal: Improved Oral Intake Outcome: Ongoing, Progressing Intervention: Promote and Optimize Oral Intake Flowsheets (Taken 07/02/2025338) Oral Nutrition Promotion: rest periods promoted Nutrition Interventions: food preferences provided Goal: Effective Renal Function Outcome: Ongoing, Progressing Intervention: Monitor and Support Renal Function Flowsheets (Taken 07/02/2025338) Stabilization Measures: legs elevated Medication Review/Management: medications reviewed * Care Plan - Iftikhar Shahid LPN - 07/01/2025 6:40 PM EDT Problem: Fall Injury Risk Goal: Absence of Fall and Fall-Related Injury Outcome: Ongoing, Progressing Intervention: Identify and Manage Contributors Flowsheets (Taken 07/01/20251837) Medication Review/Management: medications reviewed Intervention: Promote Injury-Free Environment Flowsheets (Taken 07/01/20251837) Safety Promotion/Fall Prevention: room organization consistent Problem: Skin Injury Risk Increased Goal: Skin Health and Integrity Outcome: Ongoing, Progressing Intervention: Optimize Skin Protection Flowsheets (Taken 07/01/20251837) Activity Management: previous patient education reinforced Intervention: Promote and Optimize Oral Intake Flowsheets (Taken 07/01/20251837) Nutrition Interventions: food preferences provided Problem: Adult Inpatient Plan of Care Goal: Plan of Care Review Outcome: Ongoing, Progressing Flowsheets (Taken 07/01/20251837) Progress: no change Plan of Care Reviewed With: patient Goal: Patient-Specific Goal (Individualized) Outcome: Ongoing, Progressing Flowsheets (Taken 07/01/2025 0800) Patient/Family-Specific Goals (Include Timeframe): no falls during shift Individualized Care Needs: medications Anxieties, Fears or Concerns: discharge Goal: Absence of Hospital-Acquired Illness or Injury Outcome: Ongoing, Progressing Intervention: Identify and Manage Fall Risk Flowsheets (Taken 07/01/20251837) Safety Promotion/Fall Prevention: room organization consistent Intervention: Prevent Skin Injury Flowsheets (Taken 07/01/20251837) Body Position: education provided Intervention: Prevent and Manage VTE (Venous Thromboembolism) Risk Flowsheets (Taken 07/01/20251837) VTE Prevention/Management: education provided Intervention: Prevent Infection Flowsheets (Taken 07/01/20251837) Infection Prevention: single patient room provided Goal: Optimal Comfort and Wellbeing Outcome: Ongoing, Progressing Intervention: Monitor Pain and Promote Comfort Flowsheets (Taken 07/01/20251837) Pain Management Interventions: emotional support Intervention: Provide Person-Centered Care Flowsheets (Taken 07/01/20251837) Trust Relationship/Rapport: care explained Problem: Acute Kidney Injury/Impairment Goal: Fluid and Electrolyte Balance Outcome: Ongoing, Progressing Intervention: Monitor and Manage Fluid and Electrolyte Balance Flowsheets (Taken 07/01/20251837) Fluid/Electrolyte Management: fluids adjusted Goal: Improved Oral Intake Intervention: Promote and Optimize Oral Intake Flowsheets (Taken 07/01/20251837) Nutrition Interventions: food preferences provided Goal: Effective Renal Function Outcome: Ongoing, Progressing Intervention: Monitor and Support Renal Function Flowsheets (Taken 07/01/20251837) Medication Review/Management: medications reviewed * Consults - Glenn Drake APRN - 07/01/2025 6:24 PM EDTAssociated Order(s): Inpatient consult to Transplant Surgery(Renal,Liver) Inpatient consult to Transplant Surgery(Renal,Liver) Consult performed by: Glenn Drake APRN Consult ordered by: Fabiana Cunningham MD Abdominal Transplant Surgery Consult Note Consulting Provider: Fabiana Cunningham MD Reason for Consult: dmitted with initial concernf or HRS, discussed CHIEF COMPLAINT: concern for CARLOTTA and inability to care for self. HISTORY OF PRESENT ILLNESS: Monika Ordaz is a 64 y.o. female with PMH COPD, CKD stage 3b, CAD, T2DM with diabetic neuropathy, dysphagia, obesity, JONATHAN, HLD, cirrhosis with ascites, esophageal varices, portal HTN, IBS C/D, Rheumatoid Arthritis with positive Rf, and SLE admitted on 06/25/2025 for CARLOTTA on CKD in the setting of cirrhosis with ascites and inability for self care. Transplant surgery was consulted as patient is currently undergoing evaluation for liver transplant. On assessment patient is alert & oriented, with complaints of some SOA on exertion and pain while moving. She expressed to me she passed out after getting to the chair and receiving a blood draw; but endorses feeling better and she only lost consciousness for maybe a minute or two . We discussed that to complete her evaluation and to be listed for transplant she would need a primary caregiver and bring them back to clinic to meet with SW before we can list the patient on the organ waitlist. The pt informed me she currently does not have a caregiver at this moment, and has fears she maynot be able to find one. Pt endorses having a son who is not involved in her care, an elderly mother who is unable to drive in [place], and a sister who is unable to take care of her as well. She endorsed going to [facility] but believes no one will be able to help her from the [facility]. Edited by: Glenn Drake APRN at 07/01/20251815 MELD 3.0: 23 at 07/01/2025 9:08 AM MELD-Na: 21 at 07/01/2025 9:08 AM Calculated from: Serum Creatinine: 1.42 mg/dL at 07/01/2025 12:00 AM Serum Sodium: 135 mmol/L at 07/01/2025 12:00 AM Total Bilirubin: 2.9 mg/dL at 07/01/2025 12:00 AM Serum Albumin: 2.9 g/dL at 07/01/2025 12:00 AM INR(ratio): 1.7 at 07/01/2025 9:08 AM Age at listin years Sex: Female at 07/01/2025 9:08 AM PAST MEDICAL HISTORY Past Medical History[1] PAST MEDICAL HISTORY Surgical History[2] FAMILY MEDICAL HISTORY Family History[3] SOCIAL HISTORY Social History Socioeconomic History Marital status: Spouse [...] Somewhat hard Food Insecurity: No Food Insecurity (06/26/2025) Hunger Vital Sign Worried About Running Out of Food in the Last Year: Never true Ran Out of Food in the Last Year: Never true Transportation Needs: No Transportation Needs (06/26/2025) PRAPARE - Transportation Lack of Transportation (Medical): No Lack of Transportation (Non-Medical): No Physical Activity: Inactive (05/29/2025) Exercise Vital Sign Days of Exercise per Week: 0 days Minutes of Exercise per Session: 0 min Stress: Stress Concern Present (05/29/2025) [place] [employer] - Occupational Stress Questionnaire Feeling of Stress: Very much Social Connections: Socially Isolated (05/29/2025) Social Connection and Isolation Panel Frequency of Communication with Friends and Family: More than three times a week Frequency of Social Gatherings with Friends and Family: Once a week Attends Temple Services: Never Active Member of Clubs or Organizations: No Attends Club or Organization Meetings: Never Marital Status: Intimate Partner Violence: Not At Risk (06/26/2025) Humiliation, Afraid, Rape, and Kick questionnaire Fear of Current or Ex-Partner: No Emotionally Abused: No Physically Abused: No Sexually Abused: No Housing Stability: Low Risk (06/26/2025) Housing Stability Vital Sign Unable to Pay for Housing in the Last Year: No Number of Times Moved in the Last Year: 0 Homeless in the Last Year: No MEDICATIONS Medications Ordered Prior to Encounter[4] ALLERGIES Allergies[5] REVIEW OF SYSTEMS 14-point ROS negative except as above in HPI. PHYSICAL EXAM GENERAL: adult female, NAD EYES: PERRL + scleral icterus HENT: No lesions in anterior nares; no lesions in oropharynx, head atraumatic and normocephalic NECK: Supple. No thyromegaly or adenopathy. No JVD noted. The trachea appears midline. RESP: Symmetric expansion; no retractions. Clear to auscultation bilaterally. CARD: RRR, without appreciable murmur, rubs, or gallop. Extremities: +LE edema, no cyanosis or clubbing. Pulses palpable x4. GI: No organomegaly or masses. Nontender nondistended. Soft BS present x 4 quadrants. SKIN: No rash, sores, lesions or subcutaneous nodules. : Voids NEURO: GCS 15 LABS Results from last 7 days Lab Units 07/01/25 0000 SODIUM mmol/L 135* POTASSIUM mmol/L 4.3 CHLORIDE mmol/L 108* CO2 mmol/L 18* BUN mg/dL 27* CREATININE mg/dL 1.42* CALCIUM mg/dL 8.7* BILIRUBIN TOTAL mg/dL 2.9* ALKALINE PHOSPHATASE U/L 184* ALT U/L 21 AST U/L 46* GLUCOSE mg/dL 154* Results from last 7 days Lab Units 07/01/25 0000 WBC 10*3/uL 3.15* HEMOGLOBIN g/dL 8.6* HEMATOCRIT % 25.5* PLATELETS 10*3/uL 47* Results from last 7 days Lab Units 07/01/25 0000 MAGNESIUM mg/dL 1.9 Lab Results Component Value Date CALCIUM 8.7 (L) 07/01/2025 PHOS 2.7 07/01/2025 MELD 3.0: 23 at 07/01/2025 9:08 AM MELD-Na: 21 at 07/01/2025 9:08 AM Calculated from: Serum Creatinine: 1.42 mg/dL at 07/01/2025 12:00 AM Serum Sodium: 135 mmol/L at 07/01/2025 12:00 AM Total Bilirubin: 2.9 mg/dL at 07/01/2025 12:00 AM Serum Albumin: 2.9 g/dL at 07/01/2025 12:00 AM INR(ratio): 1.7 at 07/01/2025 9:08 AM Age at listin years Sex: Female at 07/01/2025 9:08 AM ASSESSMENT Monika Ordaz is a 64 y.o. female with PMH COPD, CKD stage 3b, CAD, T2DM with diabetic neuropathy, dysphagia, obesity, JONATHAN, HLD, cirrhosis with ascites, esophageal varices, portal HTN, IBS C/D, Rheumatoid Arthritis with positive Rf, and SLE admitted on 06/25/2025 for CARLOTTA on CKD in the setting of cirrhosis with ascites and inability for self care. Transplant surgery was consulted as patient is currently undergoing evaluation for liver [facility] ([facility]) Ascites (POA) EV (POA) HE (POA) Coagulopathy (POA) - MELD 3.0: 23 at 07/01/2025, ABO: O+ - 05/07/26 CT A/P w/ IV contrast Read: Portal hypertension as evidenced by splenomegaly, portosystemic collaterals, subperitoneal space edema, portal colopathy and moderate volume ascites. - please obtain daily CMP and INR for MELD 3.0 calculation - recommend nutrition consult, daily protein intake of 1.2 to 1.5g/kg and 2g Na Diet - consider GAS/Hepatology consult if needing assistance with cirrhosis management and as the patient will/does follow with Transplant Hepatology as an outpatient - on lactulose & rifaximin - 06/17/25 Liver selection committee review notes: remain inactive - pt does not have caregiver - swon rtc to re assess. - Pt is currently INACTIVE on the transplant list until caregiver is determined and returned to clinic to meet with Txp SW. Discussed this with patient who verbalized understanding. - Pt inquired about living in a prison. Pt is unable to be listed active on the transplant ifpermanent address is at a prison; rehabilitation is acceptable - Transplant surgery will continue to follow - Rest of care per primary CARLOTTA on CKD - Baseline Cr 1.1-1.3, current Cr 1.42 - On Midodrine 10mg TID - Avoid nephrotoxic agents as able Debility - PT/OT recs: Home w/ 24 hour assist - Pt endorses difficulty doing tasks at home DM - 05/23/25: Hgb A1c: 7.3 - On insulin at home Edited by: Glenn Drake, BR[employer] at 07/01/2025 1826 Patient educated on transplant surgery evaluation process, listing, surgery time and expectations for follow-up and immunosuppressive medications. I spent 65 minutes chart review, counseling patient/family regarding diagnosis, prognosis, and treatment plan (including risks and benefits), and discussing case with care team members and formulating the plan. [1] Past Medical History: Diagnosis Date ADHD (attention deficit hyperactivity disorder) Allergic Anxiety disorder, unspecified Anxiety Bleeding gums Blood in urine Cataract Chronic kidney disease Cirrhosis (CMS/HCC) Colon cancer screening 09/20/2019 Added automatically from request for surgery [id number] Coronary artery disease Depression 1996 Diabetes mellitus [...] 1979 BLADDER SURGERY N/A Bladder surgery from [facility] BREAST BIOPSY 2011 BREAST SURGERY 2010 BUNIONECTOMY Right CATARACT EXTRACTION Bilateral 2016 CHOLECYSTECTOMY 1979 ESOPHAGOGASTRODUODENOSCOPY HYSTERECTOMY N/A Hysterectomy from [facility] KNEE SURGERY Bilateral ORAL SURGERY N/A Oral surgery from [facility] OTHER SURGICAL HISTORY 2014 ROOT CANAL WISDOM TOOTH EXTRACTION [3] Family History Problem Relation Name Age of Onset Arthritis Mother Karime Signletary Diabetes Mother Karime Singletary Hypertension Mother Karime [...] Christine Dick Alzheimer's disease Maternal Grandmother Christine Sanchezett Emphysema Maternal Grandmother Christine Dick No Known Problems Maternal Grandfather Kidney disease Paternal Grandmother Anish Singletary Stomach cancer Paternal Grandmother Anish Singletary Dementia Paternal Grandfather No Known Problems Son Diabetes Son Depression Son Anxiety disorder Son Obesity Son Depression Son Jpamrik Ordaz Asthma Son Jpamrik Ordaz Mental illness Son Jpamrik Ordaz Depression Son Viralarnoldo Ordaz Diabetes Son Viral Ordaz [4] No current facility-administered medications on file prior to encounter. Current Outpatient Medications on File Prior to Encounter Medication Sig Dispense Refill Abaloparatide (Tymlos) 3120 MCG/1.56ML solution pen-injector Inject 80 mcg under the skin daily. 1.56 mL 2 calcitriol (Rocaltrol) 0.25 MCG capsule Take 1 capsule by mouth daily. 30 capsule 0 calcium carbonate EX (Tums E-X) 750 MG chewable tablet Chew 1 tablet (750 mg) 1 (one) time each day. capsaicin (Zostrix-HP) 0.075 % topical cream Apply 1 Application topically daily as needed (Leg andfoot cramps). cetirizine (ZyrTEC) 10 MG tablet Take 1 tablet by mouth daily. 30 tablet 2 cholecalciferol (Vitamin D-3) 25 MCG (1000 UT) tablet Take 1 tablet by mouth daily. 90 tablet 2 ciprofloxacin (Cipro) 500 MG tablet Take 1 tablet by mouth daily. 90 tablet 1 insulin aspart (NovoLOG) 100 UNIT/ML injection vial Inject 20 Units under the skin 3 times a day before meals. Plus 4 units for every 50 > 150 MDD 80 units insulin glargine (Lantus SoloStar) 100 UNIT/ML injection pen Inject 48 Units under the skin every morning. lactulose (Chronulac) 10 GM/15ML solution Take 30 mL by mouth 3 times a day. 2700 mL 11 Magnesium Oxide, Laxative, 500 MG tablet Take 1 tablet by mouth daily. 90 tablet 3 midodrine (Proamatine) 5 MG tablet Take 2 tablets by mouth 3 times a day. Multiple Vitamins-Minerals (COMPLETE WOMENS PO) Take 1 tablet by mouth in the morning. prochlorperazine (Compazine) 5 MG tablet Take 1 tablet by mouth every 8 hours as needed for nausea or vomiting. 60 tablet 2 rifAXIMin (Xifaxan) 550 MG tablet Take 1 tablet by mouth 2 times a day. 60 tablet 11 zinc sulfate (Zincate) 220 (50 Zn) MG capsule Take 1 capsule by mouth in the morning and 1 capsule before bedtime. 60 capsule 2 [DISCONTINUED] capsaicin (Zostrix) 0.025 % cream Apply thin layer to feet nightly WITH GLOVES 56.6 g 1 [DISCONTINUED] midodrine (Proamatine) 10 MG tablet Take 2 tablets by mouth 3 times a day. 180 tablet 3 ergocalciferol (Vitamin D-2) 1.25 MG (00279 UT) capsule Take 1 capsule by mouth 1 time per week. 4 capsule 0 [place] 0.6 MG/0.6ML solution auto-injector Inject 0.6 mg under the skin 1 time as needed (for extreme hypoglycemia) for up to 1 dose. 0.6 mL 2 [DISCONTINUED] azelastine (Astelin) 0.1 % nasal spray Administer 1 spray into each nostril 2 times a day. Use in each nostril as directed (Patient not taking: Reported on 06/25/2025) 30 mL 12 [DISCONTINUED] B-D UF III MINI PEN NEEDLES 31G X 5 MM misc [DISCONTINUED] B-D ULTRAFINE III SHORT PEN 31G X 8 MM misc (Patient not taking: Reported on 06/25/2025) [DISCONTINUED] Blood Glucose Monitoring Suppl (Blood Glucose Monitor System) w/Device kit Test blood sugars twice a day. Dx E11.65 1 kit 0 [DISCONTINUED] fluticasone (Flonase) 50 MCG/ACT nasal spray Administer 1 spray into each nostril daily. Shake gently. Before first use, prime pump. After use, clean tip and replace cap. (Patient not taking: Reported on 06/25/2025) 16 g 0 [DISCONTINUED] glucose blood test strip Use to test blood sugars twice a day E11.65 100 each 1 [DISCONTINUED] insulin aspart (NovoLOG Flexpen) 100 UNIT/ML injection Inject 24 units before meals,12 units before small meals/snacks plus 4 units for every 50 > 150. MDD: 100 units [DISCONTINUED] Insulin Pen Needle 31G X 6 MM misc 1 each daily. Use to administer Tymlos daily 100 each 11 [DISCONTINUED] Lancets misc Use to test blood sugars twice a day E11.65 100 each 1 [DISCONTINUED] Lantus SoloStar 100 UNIT/ML injection pen Inject 52 units every morning. Titrate as directed. MDD: 60 units [DISCONTINUED] omeprazole (PriLOSEC) [address] capsule Take 1 capsule by mouth 2 times a day. Do notcrush or chew. (Patient not taking: Reported on 06/25/2025) 60 capsule 1 [DISCONTINUED] ondansetron ODT (Zofran-ODT) 8 MG disintegrating tablet Dissolve 1 tablet on the tongue every 8 hours as needed for nausea or vomiting. 30 tablet 1 [DISCONTINUED] pen needle, diabetic (BD Pen Needle Micro U/F) 32G X 6 MM misc Use to inject insulin4 times per day. 400 each 3 [DISCONTINUED] rosuvastatin (Crestor) 20 MG tablet Take 1 tablet by mouth nightly. (Patient not taking: Reported on 06/25/2025) 90 tablet 2 [5] No Known Allergies * Assessment & Plan Note - Marcelo Pichardo - 07/01/2025 1:38 PM EDTAssociated Problem(s): Acute kidney injury superimposed on stage 3b chronic kidney disease (CMS/HCC) (Resolved 07/07/2025) - Creatinine 1.1-1.3 at baseline; Improved to 1.42 07/01 - Paracentesis with as needed thoracentesis scheduled for - LLQ discomfort remains present though is stable and improved - Patient states she has begun to have some anxiety around Fridays because she knows she always feels bad the day after paracentesis - Patient had an episode of vagal hypotension at 0900 on 07/01, passed out and recovered spontaneously within seconds with stable vitals following PLAN - Continue to trend creatinine on daily CMP - Continue home lactulose, rifaximin, and ciprofloxacin - If hypotension becomes recurrent, will consider albumin - Orthostatic vitals - Continue midodrine 10mg TID - Continue daily vit D 1000 U - Consider transition to weekly 50,000 U Vit D - Strict I&O q4 - Renally dose medications and avoid nephrotoxic agents * Assessment & Plan Note - Marcelo Pichardo - 07/01/2025 1:38 PM EDTAssociated Problem(s): Chronic kidney disease, stage 3b ([facility]) - Creatinine 1.1-1.3 at baseline; Improved to 1.42 07/01 - Paracentesis with as needed thoracentesis scheduled for - LLQ discomfort remains present though is stable and improved - Patient states she has begun to have some anxiety around Fridays because she knows she always feels bad the day after paracentesis - Patient had an episode of vagal hypotension at 0900 on 07/01, passed out and recovered spontaneously within seconds with stable vitals following PLAN - Continue to trend creatinine on daily CMP - Continue home lactulose, rifaximin, and ciprofloxacin - If hypotension becomes recurrent, will consider albumin - Orthostatic vitals - Continue midodrine 10mg TID - Continue daily vit D 1000 U - Consider transition to weekly 50,000 U Vit D - Strict I&O q4 - Renally dose medications and avoid nephrotoxic agents * Assessment & Plan Note - Marcelo Pichardo - 07/01/2025 1:38 PM EDTAssociated Problem(s): Cirrhosis of liver with ascites (CMS/HCC) - Creatinine 1.1-1.3 at baseline; Improved to 1.42 07/01 - Paracentesis with as needed thoracentesis scheduled for - LLQ discomfort remains present though is stable and improved - Patient states she has begun to have some anxiety around Fridays because she knows she always feels bad the day after paracentesis - Patient had an episode of vagal hypotension at 0900 on 07/01, passed out and recovered spontaneously within seconds with stable vitals following PLAN - Continue to trend creatinine on daily CMP - Continue home lactulose, rifaximin, and ciprofloxacin - If hypotension becomes recurrent, will consider albumin - Orthostatic vitals - Continue midodrine 10mg TID - Continue daily vit D 1000 U - Consider transition to weekly 50,000 U Vit D - Strict I&O q4 - Renally dose medications and avoid nephrotoxic agents * Assessment & Plan Note - Marcelo Pichardo - 07/01/2025 1:38 PM EDTAssociated Problem(s): Hx of spontaneous bacterial peritonitis - Creatinine 1.1-1.3 at baseline; Improved to 1.42 07/01 - Paracentesis with as needed thoracentesis scheduled for - LLQ discomfort remains present though is stable and improved - Patient states she has begun to have some anxiety around Fridays because she knows she always feels bad the day after paracentesis - Patient had an episode of vagal hypotension at 0900 on 07/01, passed out and recovered spontaneously within seconds with stable vitals following PLAN - Continue to trend creatinine on daily CMP - Continue home lactulose, rifaximin, and ciprofloxacin - If hypotension becomes recurrent, will consider albumin - Orthostatic vitals - Continue midodrine 10mg TID - Continue daily vit D 1000 U - Consider transition to weekly 50,000 U Vit D - Strict I&O q4 - Renally dose medications and avoid nephrotoxic agents * Assessment & Plan Note - Marcelo Pichardo - 07/01/2025 1:38 PM EDTAssociated Problem(s): Pleural effusion associated with hepatic disorder - Creatinine 1.1-1.3 at baseline; Improved to 1.42 07/01 - Paracentesis with as needed thoracentesis scheduled for - LLQ discomfort remains present though is stable and improved - Patient states she has begun to have some anxiety around Fridays because she knows she always feels bad the day after paracentesis - Patient had an episode of vagal hypotension at 0900 on 07/01, passed out and recovered spontaneously within seconds with stable vitals following PLAN - Continue to trend creatinine on daily CMP - Continue home lactulose, rifaximin, and ciprofloxacin - If hypotension becomes recurrent, will consider albumin - Orthostatic vitals - Continue midodrine 10mg TID - Continue daily vit D 1000 U - Consider transition to weekly 50,000 U Vit D - Strict I&O q4 - Renally dose medications and avoid nephrotoxic agents * Assessment & Plan Note - Marcelo Pichardo - 07/01/2025 1:38 PM EDT Associated Problem(s): LLQ abdominal pain (Resolved 07/09/2025) - Creatinine 1.1-1.3 at baseline; Improved to 1.42 07/01 - Paracentesis with as needed thoracentesis scheduled for - LLQ discomfort remains present though is stable and improved - Patient states she has begun to have some anxiety around Fridays because she knows she always feels bad the day after paracentesis - Patient had an episode of vagal hypotension at 0900 on 07/01, passed out and recovered spontaneously within seconds with stable vitals following PLAN - Continue to trend creatinine on daily CMP - Continue home lactulose, rifaximin, and ciprofloxacin - If hypotension becomes recurrent, will consider albumin - Orthostatic vitals - Continue midodrine 10mg TID - Continue daily vit D 1000 U - Consider transition to weekly 50,000 U Vit D - Strict I&O q4 - Renally dose medications and avoid nephrotoxic agents * Assessment & Plan Note - Marcelo Pichardo - 07/01/2025 1:38 PM EDTAssociated Problem(s): Vasovagal syncope (Resolved 07/09/2025) - Creatinine 1.1-1.3 at baseline; Improved to 1.42 07/01 - Paracentesis with as needed thoracentesis scheduled for - LLQ discomfort remains present though is stable and improved - Patient states she has begun to have some anxiety around Fridays because she knows she always feels bad the day after paracentesis - Patient had an episode of vagal hypotension at 0900 on 07/01, passed out and recovered spontaneously within seconds with stable vitals following PLAN - Continue to trend creatinine on daily CMP - Continue home lactulose, rifaximin, and ciprofloxacin - If hypotension becomes recurrent, will consider albumin - Orthostatic vitals - Continue midodrine 10mg TID - Continue daily vit D 1000 U - Consider transition to weekly 50,000 U Vit D - Strict I&O q4 - Renally dose medications and avoid nephrotoxic agents * Assessment & Plan Note - Marcelo Pichardo - 07/01/2025 1:24 PM EDTAssociated Problem(s): Type 2 diabetes mellitus, with long-term current use of insulin ([facility]) - Last POCT glucose 257, received 6 units correction - Prior to this had received 6 Units correction in last 24h PLAN - Continue Glargine 24 U daily + resistant SSI - Continue to monitor glucose trends * Assessment & Plan Note - Marcelo Pichardo - 07/01/2025 1:24 PM EDTAssociated Problem(s): Diabetic peripheral neuropathy ([facility]) - Last POCT glucose 257, received 6 units correction - Prior to this had received 6 Units correction in last 24h PLAN - Continue Glargine 24 U daily + resistant SSI - Continue to monitor glucose trends * Assessment & Plan Note - Marcelo Pichardo - 07/01/2025 1:10 PM EDTAssociated Problem(s): Neutropenia - WBC 3.15 (baseline 4.0) with 1.79 absolute neutrophils, neutropenia resolved today - RBC 2.81 (baseline 3.0), platelets 47 (baseline 55) - Stable up trending toward baseline overall - Patient has a history of SLE on chart review JORDAN positive though not on medication - Stopped seeing examining chair assembler after being dismissed for missing too many appointments - Blood smear results pancytopenia not morphologically distinct PLAN - Continue to monitor - Continue Heparin for DVT prophylaxis - Rheumatology referral outpatient * Assessment & Plan Note - Marcelo Pichardo - 07/01/2025 1:10 PM EDTAssociated Problem(s): Pancytopenia - WBC 3.15 (baseline 4.0) with 1.79 absolute neutrophils, neutropenia resolved today - RBC 2.81 (baseline 3.0), platelets 47 (baseline 55) - Stable up trending toward baseline overall - Patient has a history of SLE on chart review JORDAN positive though not on medication - Stopped seeing examining chair assembler after being dismissed for missing too many appointments - Blood smear results pancytopenia not morphologically distinct PLAN - Continue to monitor - Continue Heparin for DVT prophylaxis - Rheumatology referral outpatient * Progress Notes - Venessa Brown - 07/01/2025 11:06 AM EDT Case Management Adult Progress Note Monika Ordaz 64 y.o. female CSN: [id number] Admission: 06/25/2025 2:14 PM Primary Problem: Acute kidney injury superimposed on stage 3b chronic kidney disease (CMS/HCC) Additional Comments SW met with the Family Medicine team to discuss pts POC. Pt is getting close to being medically ready for discharge. SW met with pt at bedside. SW reviewed pts options for discharge plan. Pt stated that she does get a few hours of care from the Medicaid Waiver program but she knows that they will not provide care 24 hours a day, 7 days a week, like she believes she needs. SW discussed SNF but pt stated that the transplant team may not allow her to be on the list if she is in LTC. Pt stated that she also has to pay for the lot that her mobile home sits on or she would have to have it moved and sold. Pt stated that would take a while for her to arrange for the sale of her house and to move out her belonging. SW also discussed that pt has Medicare and Medicaid and could possibly [facility] the [facility] duringthe day if she were to live with her sister. SW discussed that she was not sure how going to [facility] would affect her transplant status but that she may not be able to stay on the list due to the [facility] program paying for all her care. Pt stated that she is not sure what to do and would like to talk with her sister again. SW will continue to follow and assist. Venessa Brown * Progress Notes - Krista Brand - 07/01/2025 10:50 AM EDT Music Therapy Note Session Information: IM Order: Yes Consult Requested By: Nurse/ BRAND SPECIALIST Reason for IM Consult: Emotional Symptoms Contact Location: Inpatient room Type of Contact: Initial visit, Individual Others Present: Alone, Staff (housekeeping) Subjective: Patient Presented: Reclining out of bed (in chair/couch) Patient reported feeling: like I been passing out Initial Behavioral Presentation: Neutral, Calm/still Intrasession Behavioral Presentation: Calm/still, Positive After Disposition/ Affect: Calm/still, Positive Treatment Goals & Interventions: Increase: Mood, Coping, Quality of life Decrease: Anxiety Music Therapy Interventions: Receptive music listening, Reminiscing, Choice making Communications: Methods: Verbalizations Responses: Making choices, Positive comments about the music, Statement of nicolasa, Memories Cognitive Responses: Orientation: Oriented x4 Behavioral Observations: Responses: Active Listening, Engaging in discussion, Eye contact, Head nodding, Laughing, Making choices, Positive non-verbal behaviors, Smiling, Relaxation behaviors Engagement Level: Active Engagement Musical Responses: Musical Responses: Mouthing lyrics Comments: Comments: Pt receptive and welcomed ACACIA- and actively engaged for duration of session by choosing songs, listening to music, and reminiscing about her time living in [facility]. Pt talked about singingin choir at school and recalled a few songs she sang as a child. Pt expressed gratitude and feelingmore at peace after music therapy. Length of Visit: Length of Visit: 40min Plan of Care: Plan of Care: Continue to address above goals and additional goals as appropriate during hospitalization * Assessment & Plan Note - Marcelo Pichardo - 07/01/2025 9:16 AM EDTAssociated Problem(s): Physical debility - PTOT recs home health - Patient and family have significant concern and would prefer [facility] or long term care pharmacist care pending influence on ability to receive transplant - Patient endorsing some burning discomfort that begins in buttocks and radiates down lateral leg, does not feel as though she is getting moved much - Concerned with possible disorientation PLAN - Transplant service to evaluate today and determine if prison care would be a barrier to futureliver transplant - Delirium protocols - Up to Chair TID, q4 turns * Assessment & Plan Note - Marcelo Pichardo - 07/01/2025 9:16 AM EDTAssociated Problem(s): Self-care deficit - PTOT recs home health - Patient and family have significant concern and would prefer [facility] or prison care pending influence on ability to receive transplant - Patient endorsing some burning discomfort that begins in buttocks and radiates down lateral leg, does not feel as though she is getting moved much - Concerned with possible disorientation PLAN - Transplant service to evaluate today and determine if long term care pharmacist care would be a barrier to futureliver transplant - Delirium protocols - Up to Chair TID, q4 turns * Assessment & Plan Note - Marcelo Pichardo - 07/01/2025 9:16 AM EDTAssociated Problem(s): Dysphagia - Reflux stable PLAN - Continue to hold omeprazole * Assessment & Plan Note - Marcelo Pichardo - 07/01/2025 9:16 AM EDTAssociated Problem(s): Heartburn - Reflux stable PLAN - Continue to hold omeprazole * Assessment & Plan Note - Marcelo Pichardo - 07/01/2025 9:16 AM EDTAssociated Problem(s): Serum ammonia increased (CMS/HCC) - Last ammonia stable at 61 on 06/30 PLAN - Continue home Lactulose - Recheck ammonia if neurologic change suspected * Assessment & Plan Note - Marcelo Pichardo - 07/01/2025 9:16 AM EDTAssociated Problem(s): Hypomagnesemia (Resolved 07/09/2025) - Stable at 1.9 PLAN - Continue magnesium oxide 400 mg daily - Check Levels Daily * Assessment & Plan Note - Marcelo Pichardo - 07/01/2025 9:16 AM EDTAssociated Problem(s): 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 - PTOT recs home health - Patient and family have significant concern and would prefer [facility] or prison care pending influence on ability to receive transplant - Patient endorsing some burning discomfort that begins in buttocks and radiates down lateral leg, does not feel as though she is getting moved much - Concerned with possible disorientation PLAN - Transplant service to evaluate today and determine if long term care pharmacist care would be a barrier to futureliver transplant - Delirium protocols - Up to Chair TID, q4 turns * Assessment & Plan Note - Marcelo Pichardo - 07/01/2025 8:17 AM EDTAssociated Problem(s): Chronic obstructive pulmonary disease ([facility]/HCC) - Chronic; on home BiPAP, per RT recs * Assessment & Plan Note - Marcelo Pichardo - 07/01/2025 8:17 AM EDTAssociated Problem(s): JONATHAN treated with BiPAP - Chronic; on home BiPAP, per RT recs * Assessment & Plan Note - Marcelo Pichardo - 07/01/2025 8:17 AM EDTAssociated Problem(s): 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 Subjective Monika Ordaz is a 64 y.o. female who was seen and evaluated on 07/01/2025. Currently on HospitalDay Hospital Day: 7. Overnight, Patient had some nausea which was treated with phenergan. This AM: Patient is seen laying comfortably in bed. Patient states the phenergran helped but she does continue to feel nauseous. She has not vomited and is tolerating meals. She endorses some abdominal discomfort which is normally how she feels at this point in the week as the abdominal fluid builds up. This is not out of the ordinary for her. She is endorsing some relatively new onset shooting burning sensations that start in her buttock and radiate down her lateral leg. States she has not been moving very much. Last Bowel Movement this AM. Feels at her baseline cognitively though she is significantly worried about getting confused and has a hard time telling the time of day. She states she has some anxiety around Fridays because she usually feels rough after getting her scheduled therapeutic Paracentesis. Patient expresses some concern about going home without going to rehab first. States she would be unable to cook for herself. She gets around with a Rollator though she left this in [place]. Denies headache, fever, chest pain, vomiting, syncope, dyspnea, swelling, anddysuria. No acute complaints otherwise at this time. 0900 Event: Patient re-evaluated after BP readings 67/37 and 82/47. On discussion with patient, states she passed out seeing her labs being drawn. This has happened to her with dental work before. She states she passed out for a second before immediately coming back and was back at her neurologicbaseline within seconds. Repeat BP 99/57. Discussed with nursing and they believed this to be a vagal response to blood draw. Patient given midodrine within 3 minutes of episode. Has felt okay following. Review of Systems Additional review of systems negative except per HPI. Objective Visit Vitals BP 121/66 Pulse 81 Temp 36.3 ??C (97.3 ??F) Resp 16 Ht 1.651 m (5' 5 ) Wt 82.1 kg (181 lb) SpO2 95% BMI 30.12 kg/m?? OB Status Postmenopausal Smoking Status Never BSA 1.94 m?? Physical Exam Constitutional: General: She is not in acute distress. HENT: Head: Normocephalic. Nose: No congestion. Eyes: General: No scleral icterus. Conjunctiva/sclera: Conjunctivae normal. Cardiovascular: Rate and Rhythm: Normal rate and regular rhythm. Pulses: Normal pulses. Pulmonary: Effort: Pulmonary effort is normal. No respiratory distress. Breath sounds: Normal breath sounds. No wheezing. Abdominal: General: Bowel sounds are normal. There is distension. Palpations: Abdomen is soft. There is fluid wave. Tenderness: There is no abdominal tenderness. There is no guarding or rebound. Comments: Minimal discomfort in LLQ on palpation near Paracentesis site Musculoskeletal: Right lower leg: No edema. Left lower leg: No edema. Skin: General: Skin is warm. Capillary Refill: Capillary refill takes 2 to 3 seconds. Coloration: Skin is not jaundiced. Neurological: General: No focal deficit present. Mental Status: She is alert and oriented to person, place, and time. Mental status is at baseline. Labs and cultures: Reviewed and significant for Cr improved to 1.42, HnH Plt low but stable, Leukopenia improved from 2.74 to 3.16, Mg improved to 1.9, blood smear impression: pancytopenia, non-morphologically distinct. Assessment/Plan Assessment: Monika Ordaz is a 64 y.o. female with PMH COPD, CKD stage 3b, CAD, T2DM with diabetic neuropathy, dysphagia, obesity, JONATHAN, HLD, cirrhosis with ascites, esophageal varices, portal HTN,IBS C/D, Rheumatoid Arthritis with positive Rf, and SLE admitted on 06/25/2025 for CARLOTTA in the settingof cirrhosis with ascites now on Hospital Day: 7 requiring ongoing hospitalization for CARLOTTA and Debility. Currently, the patient's condition is good based on Improving kidney function, stable laboratory findings, and clinical stability though with significant concern for deconditioning as well as anepisode of likely vagal related hypotension. Assessment & Plan Acute kidney injury superimposed on stage 3b chronic kidney disease (CMS/HCC) Chronic kidney disease, stage 3b (CMS/HCC) Cirrhosis of liver with ascites (CMS/HCC) Hx of spontaneous bacterial peritonitis Pleural effusion associated with hepatic disorder LLQ abdominal pain Vasovagal syncope - Creatinine 1.1-1.3 at baseline; Improved to 1.42 07/01 - Paracentesis with as needed thoracentesis scheduled for - LLQ discomfort remains present though is stable and improved - Patient states she has begun to have some anxiety around Fridays because she knows she always feels bad the day after paracentesis - Patient had an episode of vagal hypotension at 0900 on 07/01, passed out and recovered spontaneously within seconds with stable vitals following PLAN - Continue to trend creatinine on daily CMP - Continue home lactulose, rifaximin, and ciprofloxacin - If hypotension becomes recurrent, will consider albumin - Orthostatic vitals - Continue midodrine 10mg TID - Continue daily vit D 1000 U - Consider transition to weekly 50,000 U Vit D - Strict I&O q4 - Renally dose medications and avoid nephrotoxic agents Other neutropenia (CMS/HCC) (Resolved: 07/01/2025) Pancytopenia - WBC 3.15 (baseline 4.0) with 1.79 absolute neutrophils, neutropenia resolved today - RBC 2.81 (baseline 3.0), platelets 47 (baseline 55) - Stable up trending toward baseline overall - Patient has a history of SLE on chart review JORDAN positive though not on medication - Stopped seeing examining chair assembler after being dismissed for missing too many appointments - Blood smear results pancytopenia not morphologically distinct PLAN - Continue to monitor - Continue Heparin for DVT prophylaxis - Rheumatology referral outpatient 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 - PTOT recs home health - Patient and family have significant concern and would prefer JOHN or prison care pending influence on ability to receive transplant - Patient endorsing some burning discomfort that begins in buttocks and radiates down lateral leg, does not feel as though she is getting moved much - Concerned with possible disorientation PLAN - Transplant service to evaluate today and determine if prison care would be a barrier to futureliver transplant - Delirium protocols - Up to Chair TID, q4 turns Type 2 diabetes mellitus, with long-term current use of insulin ([facility]) Diabetic peripheral neuropathy ([facility]) - Last POCT glucose 257, received 6 units correction - Prior to this had received 6 Units correction in last 24h PLAN - Continue Glargine 24 U daily + resistant SSI - Continue to monitor glucose trends Dysphagia Heartburn - Reflux stable PLAN - Continue to hold omeprazole Serum ammonia increased ([facility]) - Last ammonia stable at 61 on 06/30 PLAN - Continue home Lactulose - Recheck ammonia if neurologic change suspected Hypomagnesemia - Stable at 1.9 PLAN - Continue magnesium oxide 400 mg daily - Check Levels Daily Chronic obstructive pulmonary disease ([facility]) JONATHAN treated with BiPAP - Chronic; on home BiPAP, per RT recs 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 ([facility]) Hyperlipidemia - Chronic; Continue to hold Crestor Obesity (BMI 30.0-34.9) - Chronic; Complicates all aspects of care F: PO E: Monitor and replace as necessary N: Adult diet Diet texture: Regular; Carbohydrate restriction: Consistent Carb 2 (80 gm max/meal); Electrolyte Restriction: Renal GI: no PPI DVT prophylaxis: Heparin Lines and Tubes: PIV CODE: Full Code SOCIAL: Lives with sister in [facility] PT/OT: recommendations: Home with Home Health Consultants: PTOT Nutrition Hepatology Nephrology IR Transplant Disposition: Medically Ready for Discharge:Anticipated in 2-4 Days [] CARLOTTA Resolution [] Placement [] Transplant team evaluation Marcelo Pichardo, MS4 Cosigned by Fabiana Cunningham MD at 07/01/2025 8:09 PM EDT Associated attestation - Fabiana Cunningham MD - 07/01/2025 8:09 PM EDT I saw and evaluated the patient with the medical student. I discussed the case with the medical student and agree with the findings and plan as documented. I personally performed the Exam and MedicalDecision Making. Fabiana Cunningham MD * Care Plan - Gavin Mathew, PARK - 06/30/2025 10:10 PM EDT Problem: Fall Injury Risk Goal: Absence of Fall and Fall-Related Injury Outcome: Ongoing, Progressing Problem: Skin Injury Risk Increased Goal: Skin Health and Integrity Outcome: Ongoing, Progressing Problem: Adult Inpatient Plan of Care Goal: Plan of Care Review Outcome: Ongoing, Progressing Flowsheets (Taken 06/30/20252208) Progress: improving Outcome Evaluation: Pt will rest tonight and await transplant team and peripheral smear tomorrow. Plan of Care Reviewed With: patient Goal: Patient-Specific Goal (Individualized) Outcome: Ongoing, Progressing Goal: Absence of Hospital-Acquired Illness or Injury Outcome: Ongoing, Progressing Intervention: Identify and Manage Fall Risk Flowsheets (Taken 06/30/20252208) Safety Promotion/Fall Prevention: activity supervised safety round/check completed Intervention: Prevent Skin Injury Flowsheets (Taken 06/30/20252208) Body Position: weight shifting Skin Protection: incontinence pads utilized Intervention: Prevent and Manage VTE (Venous Thromboembolism) Risk Flowsheets (Taken 06/30/20252208) VTE Prevention/Management: medication Intervention: Prevent Infection Flowsheets (Taken 06/30/20252208) Infection Prevention: hand hygiene promoted Goal: Optimal Comfort and Wellbeing Outcome: Ongoing, Progressing Intervention: Monitor Pain and Promote Comfort Flowsheets (Taken 06/30/20252208) Pain Management Interventions: care clustered therapeutic presence Intervention: Provide Person-Centered Care Flowsheets (Taken 06/30/20252208) Trust Relationship/Rapport: care explained choices provided emotional support provided Problem: Acute Kidney Injury/Impairment Goal: Fluid and Electrolyte Balance Outcome: Ongoing, Progressing Intervention: Monitor and Manage Fluid and Electrolyte Balance Flowsheets (Taken 06/30/20252208) Fluid/Electrolyte Management: fluids provided Goal: Improved Oral Intake Outcome: Ongoing, Progressing Intervention: Promote and Optimize Oral Intake Flowsheets (Taken 06/30/20252208) Oral Nutrition Promotion: social interaction promoted Nutrition Interventions: food preferences provided frequent small meals provided Goal: Effective Renal Function Outcome: Ongoing, Progressing Intervention: Monitor and Support Renal Function Flowsheets (Taken 06/30/20252208) Stabilization Measures: legs elevated Medication Review/Management: medications reviewed * Assessment & Plan Note - Veronica Del Valle DO - 06/30/2025 1:48 PM EDT Associated Problem(s): Acute kidney injury superimposed on stage 3b chronic kidney disease (CMS/HCC) (Resolved 07/07/2025) - Creatinine 1.1-1.3 at baseline; slight increase to 1.6 on 06/30 from 1.49 on 06/29 - Paracentesis and thoracentesis performed 06/27 - Patient states LLQ pain is nearly gone PLAN - Continue to trend creatinine on daily CMP - Reach back out to nephrology/hepatology if creatinine continues to rise - Continue home lactulose, rifaximin, and ciprofloxacin - Continue midodrine 10mg TID - Continue daily vit D 1000 U; [id number] U to be ordered on 06/30 if still admitted - Renally dose medications and avoid nephrotoxic agents * Assessment & Plan Note - Veronica Del Valle DO - 06/30/2025 1:48 PM EDT Associated Problem(s): Chronic kidney disease, stage 3b (CMS/HCC) - Creatinine 1.1-1.3 at baseline; slight increase to 1.6 on 06/30 from 1.49 on 06/29 - Paracentesis and thoracentesis performed 06/27 - Patient states LLQ pain is nearly gone PLAN - Continue to trend creatinine on daily CMP - Reach back out to nephrology/hepatology if creatinine continues to rise - Continue home lactulose, rifaximin, and ciprofloxacin - Continue midodrine 10mg TID - Continue daily vit D 1000 U; [id number] U to be ordered on 06/30 if still admitted - Renally dose medications and avoid nephrotoxic agents * Assessment & Plan Note - Veronica Del Valle DO - 06/30/2025 1:48 PM EDT Associated Problem(s): Cirrhosis of liver with ascites (CMS/HCC) - Creatinine 1.1-1.3 at baseline; slight increase to 1.6 on 06/30 from 1.49 on 06/29 - Paracentesis and thoracentesis performed 06/27 - Patient states LLQ pain is nearly gone PLAN - Continue to trend creatinine on daily CMP - Reach back out to nephrology/hepatology if creatinine continues to rise - Continue home lactulose, rifaximin, and ciprofloxacin - Continue midodrine 10mg TID - Continue daily vit D 1000 U; [id number] U to be ordered on 06/30 if still admitted - Renally dose medications and avoid nephrotoxic agents * Assessment & Plan Note - Veronica Del Valle DO - 06/30/2025 1:48 PM EDT Associated Problem(s): Hx of spontaneous bacterial peritonitis - Creatinine 1.1-1.3 at baseline; slight increase to 1.6 on 06/30 from 1.49 on 06/29 - Paracentesis and thoracentesis performed 06/27 - Patient states LLQ pain is nearly gone PLAN - Continue to trend creatinine on daily CMP - Reach back out to nephrology/hepatology if creatinine continues to rise - Continue home lactulose, rifaximin, and ciprofloxacin - Continue midodrine 10mg TID - Continue daily vit D 1000 U; [id number] U to be ordered on 06/30 if still admitted - Renally dose medications and avoid nephrotoxic agents * Assessment & Plan Note - Veronica Del Valle DO - 06/30/2025 1:48 PM EDT Associated Problem(s): Pleural effusion associated with hepatic disorder - Creatinine 1.1-1.3 at baseline; slight increase to 1.6 on 06/30 from 1.49 on 06/29 - Paracentesis and thoracentesis performed 06/27 - Patient states LLQ pain is nearly gone PLAN - Continue to trend creatinine on daily CMP - Reach back out to nephrology/hepatology if creatinine continues to rise - Continue home lactulose, rifaximin, and ciprofloxacin - Continue midodrine 10mg TID - Continue daily vit D 1000 U; [id number] U to be ordered on 06/30 if still admitted - Renally dose medications and avoid nephrotoxic agents * Assessment & Plan Note - Veronica Del Valle DO - 06/30/2025 1:48 PM EDT Associated Problem(s): LLQ abdominal pain (Resolved 07/09/2025) - Creatinine 1.1-1.3 at baseline; slight increase to 1.6 on 06/30 from 1.49 on 06/29 - Paracentesis and thoracentesis performed 06/27 - Patient states LLQ pain is nearly gone PLAN - Continue to trend creatinine on daily CMP - Reach back out to nephrology/hepatology if creatinine continues to rise - Continue home lactulose, rifaximin, and ciprofloxacin - Continue midodrine 10mg TID - Continue daily vit D 1000 U; [id number] U to be ordered on 06/30 if still admitted - Renally dose medications and avoid nephrotoxic agents * Assessment & Plan Note - Veronica Del Valle DO - 06/30/2025 1:48 PM EDT Associated Problem(s): Neutropenia - WBC 2.74 (baseline 4.0) with 1.45 absolute neutrophils - RBC 2.74 (baseline 3.0), platelets 40 (baseline 55) - aPTT 06/27 was 42 PLAN - Continue to monitor at this time - Continue Heparin for DVT prophylaxis - Blood smear ordered; will follow the results * Assessment & Plan Note - Veronica Del Valle DO - 06/30/2025 1:48 PM EDT Associated Problem(s): Pancytopenia - WBC 2.74 (baseline 4.0) with 1.45 absolute neutrophils - RBC 2.74 (baseline 3.0), platelets 40 (baseline 55) - aPTT 06/27 was 42 PLAN - Continue to monitor at this time - Continue Heparin for DVT prophylaxis - Blood smear ordered; will follow the results * Assessment & Plan Note - Veronica Del Valle DO - 06/30/2025 1:48 PM EDT Associated Problem(s): Physical debility - Patient reports poor PO intake at home in s/o large-volume ascites - Patient complains of episodes where she is unable to perform ADLs due to confusion - PT/OT on 06/26 recommended home health; patient [place] [facility] PLAN - Contacted transplant service to determine if placement is a barrier to future liver transplant; transplant ANAYA will come tomorrow to discuss options with patient * Assessment & Plan Note - Veronica Del Valle DO - 06/30/2025 1:48 PM EDT Associated Problem(s): Self-care deficit - Patient reports poor PO intake at home in s/o large-volume ascites - Patient complains of episodes where she is unable to perform ADLs due to confusion - PT/OT on 06/26 recommended home health; patient and family [place] [facility] PLAN - Contacted transplant service to determine if placement is a barrier to future liver transplant; transplant ANAYA will come tomorrow to discuss options with patient * Assessment & Plan Note - Veronica Del Valle DO - 06/30/2025 1:48 PM EDT Associated Problem(s): Type 2 diabetes mellitus, with long-term current use of insulin ([facility]) - Last POCT glucose 128 - Received 10 units correction in past 24hrs - Hypoglycemia precautions ordered due to reported hypoglycemia at home PLAN - Continue Glargine 24 U daily + resistant SSI - Continue to monitor glucose trends * Assessment & Plan Note - Veronica Del Valle DO - 06/30/2025 1:48 PM EDT Associated Problem(s): Diabetic peripheral neuropathy ([facility]) - Last POCT glucose 128 - Received 10 units correction in past 24hrs - Hypoglycemia precautions ordered due to reported hypoglycemia at home PLAN - Continue Glargine 24 U daily + resistant SSI - Continue to monitor glucose trends * Assessment & Plan Note - Veronica Del Valle DO - 06/30/2025 1:48 PM EDT Associated Problem(s): Dysphagia - 06/28 [employer] diet recommendations; see below - Patient continues to eat full diet without difficulty PLAN - Continue to hold omeprazole * Assessment & Plan Note - Veronica Del Valle DO - 06/30/2025 1:48 PM EDT Associated Problem(s): Heartburn - 06/28 [employer]LL [employer]OR [employer] diet recommendations; see below - Patient continues to eat full diet without difficulty PLAN - Continue to hold omeprazole * Assessment & Plan Note - Veronica Del Valle DO - 06/30/2025 1:48 PM EDT Associated Problem(s): 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 ([facility]) - Chronic; Continue to hold Crestor * Assessment & Plan Note - Veronica Del Valle DO - 06/30/2025 1:48 PM EDT Associated Problem(s): Hyperlipidemia - Chronic; Continue to hold Crestor * Assessment & Plan Note - Veronica Del Valle DO - 06/30/2025 1:48 PM EDT Associated Problem(s): Hypomagnesemia (Resolved 07/09/2025) - 1.6 on admission; 06/30 was 1.5 - Given another 2g mag IV in AM PLAN - Continue magnesium oxide 400 mg daily - Continue to replete if remains low * Assessment & Plan Note - Veronica Del Valle DO - 06/30/2025 1:48 PM EDT Associated Problem(s): Serum ammonia increased (CMS/HCC) - 06/30 Ammonia 61; decreased from 125 06/29 - Patient takes Lactulose 20 g TID at home - Reports occasionally missing her 3rd dose of Lactulose; has been receiving all 3 doses in the hospital PLAN - Continue home Lactulose * Care Plan - Aubrey Eason LPN - 06/30/2025 9:50 AM EDT Problem: Fall Injury Risk Goal: Absence of Fall and Fall-Related Injury 06/28/2025 1336 by Aubrey Eason LPN Outcome: Ongoing, Progressing 06/28/2025 1304 by Aubrey Eason LPN Outcome: Ongoing, Progressing Intervention: Identify and Manage Contributors 06/28/2025 1336 by Aubrey Eason LPN Flowsheets Taken 06/28/2025 1334 Self-Care Promotion: BADL personal routines maintained Taken 06/28/2025 1240 Medication Review/Management: medications reviewed 06/28/2025 1304 by Aubrey Eason LPN Flowsheets (Taken 06/28/2025 1240) Medication Review/Management: medications reviewed Self-Care Promotion: independence encouraged BADL personal objects within reach BADL personal routines maintained Intervention: Promote Injury-Free Environment 06/28/2025 1336 by Aubrey Eason LPN Flowsheets (Taken 06/28/2025 1240) Safety Promotion/Fall Prevention: activity supervised fall prevention program maintained nonskid shoes/slippers when out of bed 06/28/2025 1304 by Aubrey Eason LPN Flowsheets (Taken 06/28/2025 1240) Safety Promotion/Fall Prevention: activity supervised fall prevention program maintained nonskid shoes/slippers when out of bed Problem: Skin Injury Risk Increased Goal: Skin Health and Integrity 06/28/2025 1336 by Aubrey Eason LPN Outcome: Ongoing, Progressing 06/28/2025 1304 by Aubrey Eason LPN Outcome: Ongoing, Progressing Intervention: Optimize Skin Protection 06/28/2025 1336 by Aubrey Eason LPN Flowsheets Taken 06/28/2025 1334 Skin Protection: pectin skin barriers applied Taken 06/28/2025 1240 Pressure Reduction Devices: positioning supports utilized Taken 06/28/2025 1000 Activity Management: activity adjusted per tolerance 06/28/2025 1304 by Aubrey Eason LPN Flowsheets Taken 06/28/2025 1240 Pressure Reduction Techniques: frequent weight shift encouraged Pressure Reduction Devices: positioning supports utilized Skin Protection: incontinence pads utilized Taken 06/28/2025 1200 Head of Bed (HOB) Positioning: HOB elevated Taken 06/28/2025 1000 Activity Management: activity adjusted per tolerance Intervention: Promote and Optimize Oral Intake Flowsheets (Taken 06/28/2025 1240) Nutrition Interventions: frequent small meals provided Problem: Adult Inpatient Plan of Care Goal: Plan of Care Review Outcome: Ongoing, Progressing Flowsheets (Taken 06/28/2025 1334) Progress: improving Outcome Evaluation: Patient will verbilize understanding plan of care Plan of Care Reviewed With: patient Goal: Patient-Specific Goal (Individualized) Outcome: Ongoing, Progressing Flowsheets (Taken 06/28/2025 0800) Patient/Family-Specific Goals (Include Timeframe): pt will remain Individualized Care Needs: safety Anxieties, Fears or Concerns: None stated Goal: Absence of Hospital-Acquired Illness or Injury Outcome: Ongoing, Progressing Intervention: Identify and Manage Fall Risk Flowsheets (Taken 06/28/2025 1240) Safety Promotion/Fall Prevention: activity supervised fall prevention program maintained nonskid shoes/slippers when out of bed Intervention: Prevent Skin Injury Flowsheets Taken 06/28/2025 1334 Skin Protection: pectin skin barriers applied Taken 06/28/2025 1200 Body Position: weight shifting Intervention: Prevent and Manage VTE (Venous Thromboembolism) Risk Flowsheets (Taken 06/28/2025 1200) VTE Prevention/Management: medication Intervention: Prevent Infection Flowsheets (Taken 06/28/2025 1334) Infection Prevention: rest/sleep promoted Goal: Optimal Comfort and Wellbeing Outcome: Ongoing, Progressing Intervention: Monitor Pain and Promote Comfort Flowsheets (Taken 06/28/2025 1336) Pain Management Interventions: care clustered Intervention: Provide Person-Centered Care Flowsheets (Taken 06/28/2025 1336) Trust Relationship/Rapport: care explained questions encouraged Problem: Acute Kidney Injury/Impairment Goal: Fluid and Electrolyte Balance Outcome: Ongoing, Progressing Intervention: Monitor and Manage Fluid and Electrolyte Balance Flowsheets (Taken 06/28/2025 1336) Fluid/Electrolyte Management: fluids provided Goal: Improved Oral Intake Outcome: Ongoing, Progressing Intervention: Promote and Optimize Oral Intake Flowsheets Taken 06/28/2025 1336 Oral Nutrition Promotion: rest periods promoted Taken 06/28/2025 1240 Nutrition Interventions: frequent small meals provided Goal: Effective Renal Function Outcome: Ongoing, Progressing Intervention: Monitor and Support Renal Function Flowsheets Taken 06/28/2025 1336 Stabilization Measures: legs elevated Taken 06/28/2025 1240 Medication Review/Management: medications reviewed * Assessment & Plan Note - Veronica Del Valle DO - 06/30/2025 8:40 AM EDT Associated Problem(s): Chronic obstructive pulmonary disease (CMS/HCC) - Chronic; on home BiPAP, per RT recs * Assessment & Plan Note - Veronica Del Valle DO - 06/30/2025 8:40 AM EDT Associated Problem(s): JONATHAN treated with BiPAP - Chronic; on home BiPAP, per RT recs * Assessment & Plan Note - Veronica Del Valle DO - 06/30/2025 8:40 AM EDT Associated Problem(s): Obesity (BMI 30.0-34.9) (Resolved 07/09/2025) - Chronic; Complicates all aspects of care * Progress Notes - Veronica Del Valle DO - 06/30/2025 7:59 AM EDT FAMILY MEDICINE Daily Progress Note Patient: Monika Ordaz 64 y.o. Subjective Monika Ordaz is a 64 y.o. female who was seen and evaluated on 06/30/2025. Currently on HospitalDay Hospital Day: 6. NAEON. No concerns from Nursing. This AM: Patient states she is feeling well. Patient states her LLQ pain is almost completely gone.Patient continues to have improved work of breathing and appetite since her paracentesis/thoracentesis. No further episodes of feeling off since 06/28. Review of Systems Additional review of systems negative except per HPI. Objective Visit Vitals BP 102/53 Pulse 59 Temp 36.6 ??C (97.8 ??F) Resp 16 Ht 1.651 m (5' 5 ) Wt 81.9 kg (180 lb 8.9 oz) SpO2 95% BMI 30.05 kg/m?? OB Status Postmenopausal Smoking Status Never BSA 1.94 m?? Physical Exam Constitutional: General: She is not in acute distress. Appearance: Normal appearance. She is obese. She is not ill-appearing. HENT: Head: Normocephalic and atraumatic. Eyes: General: No scleral icterus. Conjunctiva/sclera: Conjunctivae normal. Cardiovascular: Rate and Rhythm: Normal rate and regular rhythm. Heart sounds: No murmur heard. No friction rub. No gallop. Pulmonary: Effort: Pulmonary effort is normal. No respiratory distress. Breath sounds: Normal breath sounds. No wheezing, rhonchi or rales. Chest: Chest wall: No tenderness. Abdominal: General: There is distension. Tenderness: There is no abdominal tenderness. There is no right CVA tenderness, left CVA tenderness, guarding or rebound. Musculoskeletal: General: No swelling, deformity or signs of injury. Right lower leg: No edema. Left lower leg: No edema. Skin: General: Skin is warm. Coloration: Skin is not jaundiced. Findings: No bruising or erythema. Neurological: General: No focal deficit present. Mental Status: She is alert and oriented to person, place, and time. Psychiatric: Mood and Affect: Mood normal. Behavior: Behavior normal. Labs and cultures: Reviewed and significant for creatinine 1.60 (increased from 1.49 on 06/29), last POCT glucose 128, last ammonia on 06/30 was 61 (decreased from 125 on 06/29). Imaging/diagnostic studies: No new imaging. Assessment/Plan Assessment: Monika Ordaz is a 64 y.o. female with PMH COPD, CKD stage 3b, CAD, T2DM with diabetic neuropathy, dysphagia, obesity, JONATHAN, HLD, cirrhosis with ascites, esophageal varices, portal HTN,IBS C/D, RA/SLE, admitted on 06/25/2025 for CARLOTTA in the setting of cirrhosis with ascites, now on Hospital Day: 6 requiring ongoing hospitalization for CARLOTTA and debility. Currently, the patient's condition is good based on improving kidney function, decreased LLQ pain, but continued family concern for debility. Assessment & Plan Acute kidney injury superimposed on stage 3b chronic kidney disease (CMS/HCC) Chronic kidney disease, stage 3b (CMS/HCC) Cirrhosis of liver with ascites (CMS/HCC) Hx of spontaneous bacterial peritonitis Pleural effusion associated with hepatic disorder LLQ abdominal pain - Creatinine 1.1-1.3 at baseline; slight increase to 1.6 on 06/30 from 1.49 on 06/29 - Paracentesis and thoracentesis performed 06/27 - Patient states LLQ pain is nearly gone PLAN - Continue to trend creatinine on daily CMP - Reach back out to nephrology/hepatology if creatinine continues to rise - Continue home lactulose, rifaximin, and ciprofloxacin - Continue midodrine 10mg TID - Continue daily vit D 1000 U; [id number] U to be ordered on 06/30 if still admitted - Renally dose medications and avoid nephrotoxic agents Other neutropenia (CMS/HCC) Pancytopenia - WBC 2.74 (baseline 4.0) with 1.45 absolute neutrophils - RBC 2.74 (baseline 3.0), platelets 40 (baseline 55) - aPTT 06/27 was 42 PLAN - Continue to monitor at this time - Continue Heparin for DVT prophylaxis - Blood smear ordered; will follow the results Physical debility Self-care deficit - Patient reports poor PO intake at home in s/o large-volume ascites - Patient complains of episodes where she is unable to perform ADLs due to confusion - PT/OT on 06/26 recommended home health; patient and family [place] [facility] PLAN - Contacted transplant service to determine if placement is a barrier to future liver transplant; transplant ANAYA will come tomorrow to discuss options with patient Type 2 diabetes mellitus, with long-term current use of insulin ([facility]) Diabetic peripheral neuropathy ([facility]) - Last POCT glucose 128 - Received 10 units correction in past 24hrs - Hypoglycemia precautions ordered due to reported hypoglycemia at home PLAN - Continue Glargine 24 U daily + resistant SSI - Continue to monitor glucose trends Dysphagia Heartburn - 06/28 [employer]LL [employer] diet recommendations; see below - Patient continues to eat full diet without difficulty PLAN - Continue to hold omeprazole Serum ammonia increased ([facility]) - 06/30 Ammonia 61; decreased from 125 06/29 - Patient takes Lactulose 20 g TID at home - Reports occasionally missing her 3rd dose of Lactulose; has been receiving all 3 doses in the hospital PLAN - Continue home Lactulose Hypomagnesemia - 1.6 on admission; 06/30 was 1.5 - Given another 2g mag IV in AM PLAN - Continue magnesium oxide 400 mg daily - Continue to replete if remains low Chronic obstructive pulmonary disease ([facility]) JONATHAN treated with BiPAP - Chronic; on home BiPAP, per RT recs 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 PT/OT: consulted, appreciate recommendations Consultants: PT/OT, nutrition, hepatology, nephrology, IR Disposition: Medically Ready for Discharge:Anticipated in 2-4 Days [] CARLOTTA resolution [] Placement Veronica Del Valle DO, Family Medicine, PGY-1 [facility] Cosigned by Fabiana Cunningham MD at 06/30/2025 3:43 PM EDT Associated attestation - Fabiana Cunningham MD - 06/30/2025 3:43 PM EDT I saw and evaluated the patient with the resident/fellow. I discussed the case with the resident/fellow and agree with the findings and plan as documented. Fabiana Cunningham MD * Care Plan - Gavin Mathew RN - 06/29/2025 8:47 PM EDT Problem: Fall Injury Risk Goal: Absence of Fall and Fall-Related Injury Outcome: Ongoing, Progressing Problem: Skin Injury Risk Increased Goal: Skin Health and Integrity Outcome: Ongoing, Progressing Problem: Adult Inpatient Plan of Care Goal: Plan of Care Review Outcome: Ongoing, Progressing Flowsheets Taken 06/29/20252046 by Gavin Mathew RN Progress: improving Taken 06/29/2025 1209 by Stefania Bermeo RN Plan of Care Reviewed With: patient Taken 06/28/2025 1334 by Aubrey Eason LPN Outcome Evaluation: Patient will verbilize understanding plan of care Goal: Patient-Specific Goal (Individualized) Outcome: Ongoing, Progressing Goal: Absence of Hospital-Acquired Illness or Injury Outcome: Ongoing, Progressing Intervention: Identify and Manage Fall Risk Flowsheets (Taken 06/29/2025 1209 by Stefania Bermeo, PARK) Safety Promotion/Fall Prevention: fall prevention program maintained Intervention: Prevent Skin Injury Flowsheets Taken 06/29/20252046 by Gavin Mathew RN Skin Protection: incontinence pads utilized Taken 06/29/2025 1600 by Aubrey Eason LPN Body Position: weight shifting Intervention: Prevent and Manage VTE (Venous Thromboembolism) Risk Flowsheets (Taken 06/29/2025 1925) VTE Prevention/Management: medication Intervention: Prevent Infection Flowsheets (Taken 06/28/2025 1334 by Aubrey Eason LPN) Infection Prevention: rest/sleep promoted Goal: Optimal Comfort and Wellbeing Outcome: Ongoing, Progressing Intervention: Monitor Pain and Promote Comfort Flowsheets (Taken 06/28/2025 1336 by Aubrey Eason LPN) Pain Management Interventions: care clustered Intervention: Provide Person-Centered Care Flowsheets (Taken 06/29/2025 1209 by Stefania Bermeo, RN) Trust Relationship/Rapport: care explained choices provided emotional support provided Problem: Acute Kidney Injury/Impairment Goal: Fluid and Electrolyte Balance Outcome: Ongoing, Progressing Intervention: Monitor and Manage Fluid and Electrolyte Balance Flowsheets (Taken 06/28/2025 1336 by Aubrey Eason LPN) Fluid/Electrolyte Management: fluids provided Goal: Improved Oral Intake Outcome: Ongoing, Progressing Intervention: Promote and Optimize Oral Intake Flowsheets Taken 06/29/2025 1209 by Stefania Bermeo RN Oral Nutrition Promotion: nutrition counseling provided Taken 06/28/2025 1240 by Aubrey Eason LPN Nutrition Interventions: frequent small meals provided Goal: Effective Renal Function Outcome: Ongoing, Progressing Intervention: Monitor and Support Renal Function Flowsheets Taken 06/29/2025 1209 by Stefania Bermeo, conceptor Review/Management: medications reviewed Taken 06/28/20252026 by Gavin Mathew, PARK Stabilization Measures: legs elevated * Assessment & Plan Note - Juliane Rodriguez - 06/29/2025 12:33 PM EDTAssociated Problem(s): Acute kidney injury superimposed on stage 3b chronic kidney disease (CMS/HCC) (Resolved 07/07/2025) - Creatinine 1.1-1.3 at baseline; improved to 1.49 on 06/29 - Paracentesis and thoracentesis performed 06/27; patient states removed 3L para and 1.7L thora - IR gave patient albumin 25% infusion 37.5g after procedures PLAN - Continue to trend creatinine on daily CMP - Reach back out to nephrology/hepatology if creatinine begins to rise - Continue home lactulose, rifaximin, and ciprofloxacin - Continue midodrine 10mg TID - Continue daily vit D 1000 U; [id number] U to be ordered on 06/30 if still admitted - Renally dose medications and avoid nephrotoxic agents * Assessment & Plan Note - Juliane Rodriguez - 06/29/2025 12:33 PM EDTAssociated Problem(s): Chronic kidney disease, stage 3b (CMS/HCC) - Creatinine 1.1-1.3 at baseline; improved to 1.49 on 06/29 - Paracentesis and thoracentesis performed 06/27; patient states removed 3L para and 1.7L thora - IR gave patient albumin 25% infusion 37.5g after procedures PLAN - Continue to trend creatinine on daily CMP - Reach back out to nephrology/hepatology if creatinine begins to rise - Continue home lactulose, rifaximin, and ciprofloxacin - Continue midodrine 10mg TID - Continue daily vit D 1000 U; [id number] U to be ordered on 06/30 if still admitted - Renally dose medications and avoid nephrotoxic agents * Assessment & Plan Note - Juliane Rodriguez - 06/29/2025 12:33 PM EDTAssociated Problem(s): Cirrhosis of liver with ascites (CMS/HCC) - Creatinine 1.1-1.3 at baseline; improved to 1.49 on 06/29 - Paracentesis and thoracentesis performed 06/27; patient states removed 3L para and 1.7L thora - IR gave patient albumin 25% infusion 37.5g after procedures PLAN - Continue to trend creatinine on daily CMP - Reach back out to nephrology/hepatology if creatinine begins to rise - Continue home lactulose, rifaximin, and ciprofloxacin - Continue midodrine 10mg TID - Continue daily vit D 1000 U; [id number] U to be ordered on 06/30 if still admitted - Renally dose medications and avoid nephrotoxic agents * Assessment & Plan Note - Juliane Rodriguez - 06/29/2025 12:33 PM EDTAssociated Problem(s): Hx of spontaneous bacterial peritonitis - Creatinine 1.1-1.3 at baseline; improved to 1.49 on 06/29 - Paracentesis and thoracentesis performed 06/27; patient states removed 3L para and 1.7L thora - IR gave patient albumin 25% infusion 37.5g after procedures PLAN - Continue to trend creatinine on daily CMP - Reach back out to nephrology/hepatology if creatinine begins to rise - Continue home lactulose, rifaximin, and ciprofloxacin - Continue midodrine 10mg TID - Continue daily vit D 1000 U; [id number] U to be ordered on 06/30 if still admitted - Renally dose medications and avoid nephrotoxic agents * Assessment & Plan Note - Juliane Rodriguez - 06/29/2025 12:33 PM EDTAssociated Problem(s): Pleural effusion associated with hepatic disorder - Creatinine 1.1-1.3 at baseline; improved to 1.49 on 06/29 - Paracentesis and thoracentesis performed 06/27; patient states removed 3L para and 1.7L thora - IR gave patient albumin 25% infusion 37.5g after procedures PLAN - Continue to trend creatinine on daily CMP - Reach back out to nephrology/hepatology if creatinine begins to rise - Continue home lactulose, rifaximin, and ciprofloxacin - Continue midodrine 10mg TID - Continue daily vit D 1000 U; [id number] U to be ordered on 06/30 if still admitted - Renally dose medications and avoid nephrotoxic agents * Assessment & Plan Note - Juliane Rodriguez - 06/29/2025 12:33 PM EDTAssociated Problem(s): LLQ abdominal pain (Resolved 07/09/2025) - Creatinine 1.1-1.3 at baseline; improved to 1.49 on 06/29 - Paracentesis and thoracentesis performed 06/27; patient states removed 3L para and 1.7L thora - IR gave patient albumin 25% infusion 37.5g after procedures PLAN - Continue to trend creatinine on daily CMP - Reach back out to nephrology/hepatology if creatinine begins to rise - Continue home lactulose, rifaximin, and ciprofloxacin - Continue midodrine 10mg TID - Continue daily vit D 1000 U; [id number] U to be ordered on 06/30 if still admitted - Renally dose medications and avoid nephrotoxic agents * Assessment & Plan Note - Juliane Rodriguez - 06/29/2025 12:33 PM EDTAssociated Problem(s): Neutropenia - WBC 2.22 (baseline 4.0) with 1.04 absolute neutrophils - RBC 2.86 (baseline 3.0), platelets 39 (baseline 55) - Heparin for DVT prophylaxis resumed after procedures - aPTT 06/27 was 42 PLAN - Continue to monitor at this time - Blood smear ordered; will follow the results * Assessment & Plan Note - Juliane Rodriguez - 06/29/2025 12:33 PM EDTAssociated Problem(s): Pancytopenia - WBC 2.22 (baseline 4.0) with 1.04 absolute neutrophils - RBC 2.86 (baseline 3.0), platelets 39 (baseline 55) - Heparin for DVT prophylaxis resumed after procedures - aPTT 06/27 was 42 PLAN - Continue to monitor at this time - Blood smear ordered; will follow the results * Assessment & Plan Note - Juliane Rodriguez - 06/29/2025 12:33 PM EDTAssociated Problem(s): Type 2 diabetes mellitus, with long-term current use of insulin ([facility]) - Last POCT glucose 144 - Received 0U correction this morning - Hypoglycemia precautions ordered due to reported hypoglycemia at home PLAN - Continue Glargine 24 U daily + resistant SSI - Continue to monitor glucose trends * Assessment & Plan Note - Juliane Rodriguez - 06/29/2025 12:33 PM EDTAssociated Problem(s): Diabetic peripheral neuropathy ([facility]) - Last POCT glucose 144 - Received 0U correction this morning - Hypoglycemia precautions ordered due to reported hypoglycemia at home PLAN - Continue Glargine 24 U daily + resistant SSI - Continue to monitor glucose trends * Assessment & Plan Note - Juliane Rodriguez - 06/29/2025 12:33 PM EDTAssociated Problem(s): Dysphagia - TOLL COLLECTOR SUPERVISOR attempted to see patient 06/27; was in procedure - 06/28 TOLL COLLECTOR SUPERVISOR diet recommendations: IDDSI Level 7 - Regular and IDDSI Level 0- Thin PLAN - Continue to hold omeprazole * Assessment & Plan Note - Juliane Rodriguez - 06/29/2025 12:33 PM EDTAssociated Problem(s): Heartburn - TOLL COLLECTOR SUPERVISOR attempted to see patient 06/27; was in procedure - 06/28 TOLL COLLECTOR SUPERVISOR diet recommendations: IDDSI Level 7 - Regular and IDDSI Level 0- Thin PLAN - Continue to hold omeprazole * Assessment & Plan Note - Juliane Rodriguez - 06/29/2025 12:33 PM EDTAssociated Problem(s): Hypomagnesemia (Resolved 07/09/2025) - 1.6 on admission; Stable at 1.8 06/29 - Given 2g mag IV on 06/27 PLAN - Continue magnesium oxide 400 mg daily - Plan to replete if it remains low * Assessment & Plan Note - Juliane Rodriguez - 06/29/2025 12:33 PM EDTAssociated Problem(s): Serum ammonia increased (CMS/HCC) - Ammonia 125 06/29 - Patient takes Lactulose 20 g TID at home - Reports occasionally missing her 3rd dose; has been receiving all 3 doses in the hospital - Patient had 2 bowel movements this morning PLAN - Continue home Lactulose * Care Plan - Stefania Bermeo RN - 06/29/2025 12:11 PM EDT Problem: Fall Injury Risk Goal: Absence of Fall and Fall-Related Injury Outcome: Ongoing, Progressing Intervention: Identify and Manage Contributors Flowsheets (Taken 06/29/2025 1209) Medication Review/Management: medications reviewed Intervention: Promote Injury-Free Environment Flowsheets (Taken 06/29/2025 1209) Safety Promotion/Fall Prevention: fall prevention program maintained Problem: Skin Injury Risk Increased Goal: Skin Health and Integrity Outcome: Ongoing, Progressing Intervention: Promote and Optimize Oral Intake Flowsheets (Taken 06/29/20251208) Oral Nutrition Promotion: nutrition counseling provided Problem: Adult Inpatient Plan of Care Goal: Plan of Care Review Outcome: Ongoing, Progressing Flowsheets (Taken 06/29/20251208) Plan of Care Reviewed With: patient Goal: Patient-Specific Goal (Individualized) Outcome: Ongoing, Progressing Flowsheets (Taken 06/29/2025 120) Patient/Family-Specific Goals (Include Timeframe): patient will have 3 BMs during the shift Goal: Absence of Hospital-Acquired Illness or Injury Outcome: Ongoing, Progressing Intervention: Identify and Manage Fall Risk Flowsheets (Taken 06/29/2025 120) Safety Promotion/Fall Prevention: fall prevention program maintained Intervention: Prevent and Manage VTE (Venous Thromboembolism) Risk Flowsheets (Taken 06/29/20251208) VTE Prevention/Management: medication Goal: Optimal Comfort and Wellbeing Outcome: Ongoing, Progressing Intervention: Provide Person-Centered Care Flowsheets (Taken 06/29/20251208) Trust Relationship/Rapport: care explained choices provided emotional support provided Problem: Acute Kidney Injury/Impairment Goal: Fluid and Electrolyte Balance Outcome: Ongoing, Progressing Goal: Improved Oral Intake Outcome: Ongoing, Progressing Intervention: Promote and Optimize Oral Intake Flowsheets (Taken 06/29/20251208) Oral Nutrition Promotion: nutrition counseling provided Goal: Effective Renal Function Outcome: Ongoing, Progressing * Assessment & Plan Note - Juliane Rodriguez - 06/29/2025 11:21 AM EDTAssociated Problem(s): Physical debility - Patient reports poor PO intake at home in s/o large-volume ascites - Family involved in and amenable to discussion of placement; concerned for declining ability to perform ADLs - PT/OT recommended home health; patient [place] [facility] [place] [facility] PLAN - Plan for placement in long-term care * Assessment & Plan Note - Juliane Rodriguez - 06/29/2025 11:21 AM EDTAssociated Problem(s): Self-care deficit - Patient reports poor PO intake at home in s/o large-volume ascites - Family involved in and amenable to discussion of placement; concerned for declining ability to perform ADLs - PT/OT recommended home health; patient and family [facility] [place] [facility] PLAN - Plan for placement in long-term care * Assessment & Plan Note - Juliane Rodriguez - 06/29/2025 11:21 AM EDTAssociated Problem(s): Chronic obstructive pulmonary disease ([facility]/HCC) - Chronic; on home BiPAP, per RT recs * Assessment & Plan Note - Juliane Rodriguez - 06/29/2025 11:21 AM EDTAssociated Problem(s): JONATHAN treated with BiPAP - Chronic; on home BiPAP, per RT recs * Assessment & Plan Note - Juliane Rodriguez - 06/29/2025 11:21 AM EDTAssociated Problem(s): 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 (CMS/HCC) - Chronic; Continue to hold Crestor * Assessment & Plan Note - Juliane Rodriguez - 06/29/2025 11:21 AM EDTAssociated Problem(s): Hyperlipidemia - Chronic; Continue to hold Crestor * Assessment & Plan Note - Juliane Rodriguez - 06/29/2025 11:21 AM EDTAssociated Problem(s): Obesity (BMI 30.0-34.9) (Resolved 07/09/2025) - Chronic; Complicates all aspects of care * Progress Notes - Juliane Rodriguez - 06/29/2025 11:02 AM EDT FAMILY MEDICINE Daily Progress Note Patient: Monika Ordaz 64 y.o. Subjective Monika Ordaz is a 64 y.o. female who was seen and evaluated on 06/29/2025. Currently on Hospital Day Hospital Day: 5. NAEON. No concerns from Nursing. This AM: Patient is currently taking Lactulose and has had 2 BM this morning around 6:20 AM. She said she occasionally misses her third dose of Lactulose but has been taking all 3 doses since 05/31. She is concerned about her increased ammonia levels. Discussed long term care pharmacist care placement vs home. She is concerned that she will not have assistance if needed if she went home. Her son has expressed that he would no longer be able to take care of her at home. She is currently staying with her sister. Her sister also looks after her mother, and she is concerned that she is putting additional stress on both of them if she continues to stay with them. Patient reports that her transplant team may frown upon prison care. She does not want to spend the rest of her life having paracentesis. Review of Systems Additional review of systems negative except per HPI. Objective Visit Vitals BP 113/55 Pulse 75 Temp 36.5 ??C (97.7 ??F) Resp 16 Ht 1.651 m (5' 5 ) Wt 81.9 kg (180 lb 8.9 oz) SpO2 98% BMI 30.05 kg/m?? OB Status Postmenopausal Smoking Status Never BSA 1.94 m?? Physical Exam Constitutional: General: She is not in acute distress. Appearance: She is obese. She is not ill-appearing. HENT: Head: Normocephalic and atraumatic. Right Ear: External ear normal. Left Ear: External ear normal. Nose: Nose normal. Eyes: General: No scleral icterus. Extraocular Movements: Extraocular movements intact. Cardiovascular: Rate and Rhythm: Normal rate and regular rhythm. Pulses: Normal pulses. Radial pulses are 2+ on the right side and 2+ on the left side. Posterior tibial pulses are 2+ on the right side and 2+ on the left side. Heart sounds: Murmur heard. Pulmonary: Effort: Pulmonary effort is normal. Breath sounds: Normal breath sounds. Abdominal: General: There is distension. Tenderness: There is abdominal tenderness in the left lower quadrant. Musculoskeletal: Cervical back: Normal range of motion. Right lower leg: No edema. Left lower leg: No edema. Neurological: Mental Status: She is alert. Psychiatric: Mood and Affect: Mood normal. Behavior: Behavior normal. Labs and cultures: Reviewed and significant for WBC increased to 2.22, RBC increased to 2.86, H/H increased to 8.8 and 25.5, Plt decreased to 39, absolute neutrophils increased to 1.04, Mg 1.8, glucose 159, BUN decreased to 26, Cr improved to 1.49, K 3.4, AST 50, AlkPhos 201, ammonia 125. Imaging/diagnostic studies: No new imaging. Assessment/Plan Assessment: Monika Ordaz is a 64 y.o. female with PMH COPD, CKD stage 3b, CAD, T2DM with diabetic neuropathy, dysphagia, obesity, JONATHAN (BiPAP nightly), RA/SLE, HLD, cirrhosis with ascites, esophageal varices, portal HTN, IBS C/D admitted on 06/25/2025 for CARLOTTA in the setting of cirrhosis with ascites, now on Hospital Day: 5 requiring ongoing hospitalization for ongoing hospitalization for CARLOTTA anddebility. Currently, the patient's condition is good based on improving kidney function and decreased LLQ pain, but debility requiring assistance. Assessment & Plan Acute kidney injury superimposed on stage 3b chronic kidney disease (CMS/HCC) Chronic kidney disease, stage 3b (CMS/HCC) Cirrhosis of liver with ascites (CMS/HCC) Hx of spontaneous bacterial peritonitis Pleural effusion associated with hepatic disorder LLQ abdominal pain - Creatinine 1.1-1.3 at baseline; improved to 1.49 on 06/29 - Paracentesis and thoracentesis performed 06/27; patient states removed 3L para and 1.7L thora - IR gave patient albumin 25% infusion 37.5g after procedures PLAN - Continue to trend creatinine on daily CMP - Reach back out to nephrology/hepatology if creatinine begins to rise - Continue home lactulose, rifaximin, and ciprofloxacin - Continue midodrine 10mg TID - Continue daily vit D 1000 U; 19404 U to be ordered on 06/30 if still admitted - Renally dose medications and avoid nephrotoxic agents Other neutropenia ([facility]) Pancytopenia - WBC 2.22 (baseline 4.0) with 1.04 absolute neutrophils - RBC 2.86 (baseline 3.0), platelets 39 (baseline 55) - Heparin for DVT prophylaxis resumed after procedures - aPTT 06/27 was 42 PLAN - Continue to monitor at this time - Blood smear ordered; will follow the results Physical debility Self-care deficit - Patient reports poor PO intake at home in s/o large-volume ascites - Family involved in and amenable to discussion of placement; concerned for declining ability to perform ADLs - PT/OT recommended home health; patient [place] family [place] [facility] PLAN - Plan for placement in long-term care Type 2 diabetes mellitus, with long-term current use of insulin ([facility]) Diabetic peripheral neuropathy ([facility]) - Last POCT glucose 144 - Received 0U correction this morning - Hypoglycemia precautions ordered due to reported hypoglycemia at home PLAN - Continue Glargine 24 U daily + resistant SSI - Continue to monitor glucose trends Dysphagia Heartburn - TOLL COLLECTOR SUPERVISOR attempted to see patient 06/27; was in procedure - 06/28 TOLL COLLECTOR SUPERVISOR diet recommendations: IDDSI Level 7 - Regular and IDDSI Level 0- Thin PLAN - Continue to hold omeprazole Chronic obstructive pulmonary disease ([facility]) JONATHAN treated with BiPAP - Chronic; on home BiPAP, per RT recs 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 ([facility]) Hyperlipidemia - Chronic; Continue to hold Crestor Obesity (BMI 30.0-34.9) - Chronic; Complicates all aspects of care Hypomagnesemia - 1.6 on admission; Stable at 1.8 06/29 - Given 2g mag IV on 06/27 PLAN - Continue magnesium oxide 400 mg daily - Plan to replete if it remains low Serum ammonia increased ([facility]) - Ammonia 125 06/29 - Patient takes Lactulose 20 g TID at home - Reports occasionally missing her 3rd dose; has been receiving all 3 doses in the hospital - Patient had 2 bowel movements this morning PLAN - Continue home Lactulose F: PO E: Monitor and replace as necessary N: Adult diet Diet texture: Regular; Carbohydrate restriction: Consistent Carb 2 (80 gm max/meal); Electrolyte Restriction: Renal GI: no PPI DVT prophylaxis: Heparin Lines and Tubes: pIV CODE: Full Code SOCIAL: Currently living with sister in [facility] PT/OT: consulted, appreciate recommendations Consultants: PT/OT, Nutrition, Hepatology, Nephrology, IR Disposition: Medically Ready for Discharge:Anticipated in 2-4 Days [] CARLOTTA resolution [] Placement Juliane Garcia Michael, MS4 Cosigned by Fabiana Cunningham MD at 06/29/2025 2:13 PM EDT Associated attestation - Fabiana Cunningham MD - 06/29/2025 2:13 PM EDT I saw and evaluated the patient. I discussed the case with the medical student and resident/fellow and agree with the findings and plan as documented. I personally participated in the management of the patient. Fabiana Cunningham MD * Assessment & Plan Note - Chilo Morales MD - 06/29/2025 8:30 AM EDT Associated Problem(s): Acute kidney injury superimposed on stage 3b chronic kidney disease (CMS/HCC) (Resolved 07/07/2025) - Creatinine 1.1-1.3 at baseline; improved to 1.66 on 06/28 - Paracentesis and thoracentesis performed 06/27; patient states removed 3L para and 1.7L thora - IR gave patient albumin 25% infusion 37.5g after procedures PLAN - Continue to trend creatinine on daily CMP - Reach back out to nephrology/hepatology if creatinine begins to rise - Continue home lactulose, rifaximin, and ciprofloxacin - Continue midodrine 10mg TID - Continue daily vit D 1000 U; [id number] U to be ordered on 06/30 if still admitted - Renally dose medications and avoid nephrotoxic agents * Assessment & Plan Note - Chilo Morales MD - 06/29/2025 8:30 AM EDT Associated Problem(s): Chronic kidney disease, stage 3b (CMS/HCC) - Creatinine 1.1-1.3 at baseline; improved to 1.66 on 06/28 - Paracentesis and thoracentesis performed 06/27; patient states removed 3L para and 1.7L thora - IR gave patient albumin 25% infusion 37.5g after procedures PLAN - Continue to trend creatinine on daily CMP - Reach back out to nephrology/hepatology if creatinine begins to rise - Continue home lactulose, rifaximin, and ciprofloxacin - Continue midodrine 10mg TID - Continue daily vit D 1000 U; [id number] U to be ordered on 06/30 if still admitted - Renally dose medications and avoid nephrotoxic agents * Assessment & Plan Note - Chilo Morales MD - 06/29/2025 8:30 AM EDT Associated Problem(s): Cirrhosis of liver with ascites (CMS/HCC) - Creatinine 1.1-1.3 at baseline; improved to 1.66 on 06/28 - Paracentesis and thoracentesis performed 06/27; patient states removed 3L para and 1.7L thora - IR gave patient albumin 25% infusion 37.5g after procedures PLAN - Continue to trend creatinine on daily CMP - Reach back out to nephrology/hepatology if creatinine begins to rise - Continue home lactulose, rifaximin, and ciprofloxacin - Continue midodrine 10mg TID - Continue daily vit D 1000 U; [id number] U to be ordered on 06/30 if still admitted - Renally dose medications and avoid nephrotoxic agents * Assessment & Plan Note - Chilo Morales MD - 06/29/2025 8:30 AM EDT Associated Problem(s): Hx of spontaneous bacterial peritonitis - Creatinine 1.1-1.3 at baseline; improved to 1.66 on 06/28 - Paracentesis and thoracentesis performed 06/27; patient states removed 3L para and 1.7L thora - IR gave patient albumin 25% infusion 37.5g after procedures PLAN - Continue to trend creatinine on daily CMP - Reach back out to nephrology/hepatology if creatinine begins to rise - Continue home lactulose, rifaximin, and ciprofloxacin - Continue midodrine 10mg TID - Continue daily vit D 1000 U; [id number] U to be ordered on 06/30 if still admitted - Renally dose medications and avoid nephrotoxic agents * Assessment & Plan Note - Chilo Morales MD - 06/29/2025 8:30 AM EDT Associated Problem(s): Pleural effusion associated with hepatic disorder - Creatinine 1.1-1.3 at baseline; improved to 1.66 on 06/28 - Paracentesis and thoracentesis performed 06/27; patient states removed 3L para and 1.7L thora - IR gave patient albumin 25% infusion 37.5g after procedures PLAN - Continue to trend creatinine on daily CMP - Reach back out to nephrology/hepatology if creatinine begins to rise - Continue home lactulose, rifaximin, and ciprofloxacin - Continue midodrine 10mg TID - Continue daily vit D 1000 U; [id number] U to be ordered on 06/30 if still admitted - Renally dose medications and avoid nephrotoxic agents * Assessment & Plan Note - Chilo Morales MD - 06/29/2025 8:30 AM EDT Associated Problem(s): LLQ abdominal pain (Resolved 07/09/2025) - Creatinine 1.1-1.3 at baseline; improved to 1.66 on 06/28 - Paracentesis and thoracentesis performed 06/27; patient states removed 3L para and 1.7L thora - IR gave patient albumin 25% infusion 37.5g after procedures PLAN - Continue to trend creatinine on daily CMP - Reach back out to nephrology/hepatology if creatinine begins to rise - Continue home lactulose, rifaximin, and ciprofloxacin - Continue midodrine 10mg TID - Continue daily vit D 1000 U; [id number] U to be ordered on 06/30 if still admitted - Renally dose medications and avoid nephrotoxic agents * Assessment & Plan Note - Chilo Morales MD - 06/29/2025 8:30 AM EDT Associated Problem(s): Neutropenia - WBC 1.69 (baseline 4.0) with 0.69 absolute neutrophils - RBC 2.72 (baseline 3.0), platelets 40 (baseline 55) - Heparin for DVT prophylaxis resumed after procedures - aPTT 06/27 42 PLAN - Continue to monitor at this time - Consider blood smear in the future, if CBC values continue to decrease * Assessment & Plan Note - Chilo Morales MD - 06/29/2025 8:30 AM EDT Associated Problem(s): Pancytopenia - WBC 1.69 (baseline 4.0) with 0.69 absolute neutrophils - RBC 2.72 (baseline 3.0), platelets 40 (baseline 55) - Heparin for DVT prophylaxis resumed after procedures - aPTT 06/27 42 PLAN - Continue to monitor at this time - Consider blood smear in the future, if CBC values continue to decrease * Assessment & Plan Note - Chilo Morales MD - 06/29/2025 8:30 AM EDT Associated Problem(s): Physical debility - Patient reports poor PO intake at home in s/o large-volume ascites - Family involved in and amenable to discussion of placement; concerned for declining ability to perform ADLs - PT/OT recommended home health; patient and family [facility] [facility] PLAN - Plan for placement in long-term care * Assessment & Plan Note - Chilo Morales MD - 06/29/2025 8:30 AM EDT Associated Problem(s): Self-care deficit - Patient reports poor PO intake at home in s/o large-volume ascites - Family involved in and amenable to discussion of placement; concerned for declining ability to perform ADLs - PT/OT recommended home health; patient and family [facility] [facility] PLAN - Plan for placement in long-term care * Assessment & Plan Note - Chilo Morales MD - 06/29/2025 8:30 AM EDT Associated Problem(s): Type 2 diabetes mellitus, with long-term current use of insulin ([facility]) - Last POCT glucose 151 (before receiving 24U) - Received 2U correction this morning - Hypoglycemia precautions ordered due to reported hypoglycemia at home PLAN - Continue Glargine 24 U daily + resistant SSI - Continue to monitor glucose trends * Assessment & Plan Note - Chilo Morales MD - 06/29/2025 8:30 AM EDT Associated Problem(s): Diabetic peripheral neuropathy (CMS/HCC) - Last POCT glucose 151 (before receiving 24U) - Received 2U correction this morning - Hypoglycemia precautions ordered due to reported hypoglycemia at home PLAN - Continue Glargine 24 U daily + resistant SSI - Continue to monitor glucose trends * Assessment & Plan Note - Chilo Morales MD - 06/29/2025 8:30 AM EDT Associated Problem(s): Dysphagia - TOLL COLLECTOR SUPERVISOR attempted to see patient 8/7; was in procedure PLAN - Awaiting TOLL COLLECTOR SUPERVISOR eval - Continue to hold omeprazole * Assessment & Plan Note - Chilo Morales MD - 06/29/2025 8:30 AM EDT Associated Problem(s): Heartburn - TOLL COLLECTOR SUPERVISOR attempted to see patient 8/7; was in procedure PLAN - Awaiting TOLL COLLECTOR SUPERVISOR eval - Continue to hold omeprazole * Assessment & Plan Note - Chilo Morales MD - 06/29/2025 8:30 AM EDT Associated Problem(s): Chronic obstructive pulmonary disease ([facility]) - Chronic; on home BiPAP, per RT recs * Assessment & Plan Note - Chilo Morales MD - 06/29/2025 8:30 AM EDT Associated Problem(s): JONATHAN treated with BiPAP - Chronic; on home BiPAP, per RT recs * Assessment & Plan Note - Chilo Morales MD - 06/29/2025 8:30 AM EDT Associated Problem(s): 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 ([facility]) - Chronic; Continue to hold Crestor * Assessment & Plan Note - Chilo Morales MD - 06/29/2025 8:30 AM EDT Associated Problem(s): Hyperlipidemia - Chronic; Continue to hold Crestor * Assessment & Plan Note - Chilo Morales MD - 06/29/2025 8:30 AM EDT Associated Problem(s): Obesity (BMI 30.0-34.9) (Resolved 07/09/2025) - Chronic; Complicates all aspects of care * Assessment & Plan Note - Chilo Morales MD - 06/29/2025 8:30 AM EDT Associated Problem(s): Hypomagnesemia (Resolved 07/09/2025) - 1.6 on admission; 1.8 06/28 - Given 2g mag IV on 06/27 PLAN - Continue magnesium oxide 400 mg daily - Plan to replete if it remains low * Care Plan - Gavin Mathew RN - 06/28/2025 8:27 PM EDT Problem: Fall Injury Risk Goal: Absence of Fall and Fall-Related Injury Outcome: Ongoing, Progressing Problem: Skin Injury Risk Increased Goal: Skin Health and Integrity Outcome: Ongoing, Progressing Problem: Adult Inpatient Plan of Care Goal: Plan of Care Review Outcome: Ongoing, Progressing Flowsheets (Taken 06/28/2025 9264 by Aubrey Eason LPN) Progress: improving Outcome Evaluation: Patient will verbilize understanding plan of care Plan of Care Reviewed With: patient Goal: Patient-Specific Goal (Individualized) Outcome: Ongoing, Progressing Goal: Absence of Hospital-Acquired Illness or Injury Outcome: Ongoing, Progressing Goal: Optimal Comfort and Wellbeing Outcome: Ongoing, Progressing Problem: Acute Kidney Injury/Impairment Goal: Fluid and Electrolyte Balance Outcome: Ongoing, Progressing Intervention: Monitor and Manage Fluid and Electrolyte Balance Flowsheets (Taken 06/28/2025 1336 by Aubrey Eason LPN) Fluid/Electrolyte Management: fluids provided Goal: Improved Oral Intake Outcome: Ongoing, Progressing Intervention: Promote and Optimize Oral Intake Flowsheets Taken 06/28/20252026 by Gavin Mathew, PARK Oral Nutrition Promotion: physical activity promoted rest periods promoted social interaction promoted Taken 06/28/2025 1240 by Aubrey Eason LPN Nutrition Interventions: frequent small meals provided Goal: Effective Renal Function Outcome: Ongoing, Progressing Intervention: Monitor and Support Renal Function Flowsheets (Taken 06/28/20252026) Stabilization Measures: legs elevated Medication Review/Management: medications reviewed * Care Plan - Aburey Eason LPN - 06/28/2025 1:37 PM EDT Problem: Fall Injury Risk Goal: Absence of Fall and Fall-Related Injury 06/28/2025 1336 by Aubrey Eason LPN Outcome: Ongoing, Progressing 06/28/2025 1304 by Aubrey Eason LPN Outcome: Ongoing, Progressing Intervention: Identify and Manage Contributors 06/28/2025 1336 by Aubrey Eason LPN Flowsheets Taken 06/28/2025 1334 Self-Care Promotion: BADL personal routines maintained Taken 06/28/2025 1240 Medication Review/Management: medications reviewed 06/28/2025 1304 by Aubrey Eason LPN Flowsdaisha (Taken 06/28/2025 1240) Medication Review/Management: medications reviewed Self-Care Promotion: independence encouraged BADL personal objects within reach BADL personal routines maintained Intervention: Promote Injury-Free Environment 06/28/2025 1336 by Aubrey Eason LPN Flowsheets (Taken 06/28/2025 1240) Safety Promotion/Fall Prevention: activity supervised fall prevention program maintained nonskid shoes/slippers when out of bed 06/28/2025 1304 by Aubrey Eason LPN Flowsheets (Taken 06/28/2025 1240) Safety Promotion/Fall Prevention: activity supervised fall prevention program maintained nonskid shoes/slippers when out of bed Problem: Skin Injury Risk Increased Goal: Skin Health and Integrity 06/28/2025 1336 by Aubrey Eason LPN Outcome: Ongoing, Progressing 06/28/2025 1304 by Aubrey Eason LPN Outcome: Ongoing, Progressing Intervention: Optimize Skin Protection 06/28/2025 1336 by Aubrey Eason LPN Flowsheets Taken 06/28/2025 1334 Skin Protection: pectin skin barriers applied Taken 06/28/2025 1240 Pressure Reduction Devices: positioning supports utilized Taken 06/28/2025 1000 Activity Management: activity adjusted per tolerance 06/28/2025 1304 by Aubrey Eason LPN Flowsheets Taken 06/28/2025 1240 Pressure Reduction Techniques: frequent weight shift encouraged Pressure Reduction Devices: positioning supports utilized Skin Protection: incontinence pads utilized Taken 06/28/2025 1200 Head of Bed (HOB) Positioning: HOB elevated Taken 06/28/2025 1000 Activity Management: activity adjusted per tolerance Intervention: Promote and Optimize Oral Intake Flowsheets (Taken 06/28/2025 1240) Nutrition Interventions: frequent small meals provided Problem: Adult Inpatient Plan of Care Goal: Plan of Care Review Outcome: Ongoing, Progressing Flowsheets (Taken 06/28/2025 1334) Progress: improving Outcome Evaluation: Patient will verbilize understanding plan of care Plan of Care Reviewed With: patient Goal: Patient-Specific Goal (Individualized) Outcome: Ongoing, Progressing Flowsheets (Taken 06/28/2025 0800) Patient/Family-Specific Goals (Include Timeframe): pt will remain Individualized Care Needs: safety Anxieties, Fears or Concerns: None stated Goal: Absence of Hospital-Acquired Illness or Injury Outcome: Ongoing, Progressing Intervention: Identify and Manage Fall Risk Flowsheets (Taken 06/28/2025 1240) Safety Promotion/Fall Prevention: activity supervised fall prevention program maintained nonskid shoes/slippers when out of bed Intervention: Prevent Skin Injury Flowsheets Taken 06/28/2025 1334 Skin Protection: pectin skin barriers applied Taken 06/28/2025 1200 Body Position: weight shifting Intervention: Prevent and Manage VTE (Venous Thromboembolism) Risk Flowsheets (Taken 06/28/2025 1200) VTE Prevention/Management: medication Intervention: Prevent Infection Flowsheets (Taken 06/28/2025 1334) Infection Prevention: rest/sleep promoted Goal: Optimal Comfort and Wellbeing Outcome: Ongoing, Progressing Intervention: Monitor Pain and Promote Comfort Flowsheets (Taken 06/28/2025 1336) Pain Management Interventions: care clustered Intervention: Provide Person-Centered Care Flowsheets (Taken 06/28/2025 1336) Trust Relationship/Rapport: care explained questions encouraged Problem: Acute Kidney Injury/Impairment Goal: Fluid and Electrolyte Balance Outcome: Ongoing, Progressing Intervention: Monitor and Manage Fluid and Electrolyte Balance Flowsheets (Taken 06/28/2025 1336) Fluid/Electrolyte Management: fluids provided Goal: Improved Oral Intake Outcome: Ongoing, Progressing Intervention: Promote and Optimize Oral Intake Flowsheets Taken 06/28/2025 1336 Oral Nutrition Promotion: rest periods promoted Taken 06/28/2025 1240 Nutrition Interventions: frequent small meals provided Goal: Effective Renal Function Outcome: Ongoing, Progressing Intervention: Monitor and Support Renal Function Flowsheets Taken 06/28/2025 1336 Stabilization Measures: legs elevated Taken 06/28/2025 1240 Medication Review/Management: medications reviewed * Progress Notes - Laura Garcia CCC-TOLL COLLECTOR SUPERVISOR - 06/28/2025 12:39 PM EDT Speech Language Pathology Clinical Swallow Initial Evaluation Patient Name: Monika Ordaz Age: 64 y.o. Today's Date: 06/28/2025 Recommendations: IDDSI Level 7 - Regular and IDDSI Level 0- Thin; requests referral to RD to discuss food options due to renal diet. May consider further evaluation of esophageal phase of swallow History/Background Information Monika Ordaz is a 64 y.o. female with PMH COPD, CKD stage 3b, CAD, T2DM with diabetic neuropathy, dysphagia, obesity, JONATHAN on BiPAP nightly, RA/SLE, HLD, cirrhosis with ascites, esophageal varices, portal HTN, IBS C/D admitted on 06/25/2025 for CARLOTTA, now on hospital day 3 requiring ongoing hospitalization for CARLOTTA in the setting of cirrhosis and progressing debility. Currently, the patient's condition is fair based on improved LLQ pain and Cr but continued need for paracentesis. Problem List[1] Past Medical History[2] Surgical History[3] Subjective Monika Ordaz was alert, cooperative and agreeable to evaluation. Identified by name and . RNprovided verbal consent for evaluation. Objective Current diet: Adult diet Diet texture: Regular; Carbohydrate restriction: Consistent Carb 2 (80 gm max/meal); Electrolyte Restriction: Renal Direction Following: Patient was able to follow complex directions for participation in clinical swallow evaluation. Oral Mechanism Report: Dentition: WFL, some missing Oral hygiene: WFL Focused Cranial Nerve Exam: Trigeminal Nerve (V): WFL Facial Nerve (VII): WFL Spinal Accessory (XI): WFL Hypoglossal Nerve (XII): WFL Function Exam: Secretion Management: WFL Vocal Quality: WFL Cough: - Volitional WFL - Reflexive WFL Oral Feeding Trials: Positioning: Upright Feeding assistance: independent, self-fed Consistencies Administered: thin liquid via straw and dry solid consistency Risk Factors: GERD (holding home medication at this time) [place] Swallow Protocol (Cruz, 2008) - 3 Oz water challenge: Passed Assessment Patient presented with no overt s/s of dysphagia or aspiration. Oral motor evaluation revealed functional labial and lingual ROM, strength and tone. Oral phase was characterized by full labial closure and anterior oral containment. She does report increased saliva and drooling that occurs more frequently in the past few months Pharyngeal phase was characterized by presence of laryngeal movementper palpation and no overt s/s of aspiration. Pt passed the [place] Swallow Protocol suggesting low risk of aspiration. Given overall medical condition, would suspect likelihood of aspiration with subsequent pulmonary complications to be low. She does report early satiety and feeling as though food won't go down . Consider further evaluation of esophageal phase of swallow. Prognosis: Excellent Patient Education was provided via verbal instruction to patient regarding risk factors for dysphagia, clinical indicators of dysphagia following evaluation, and plan of care . Results and recommendations of this evaluation were communicated to: Medical team Plan / Recommendations Diet recommendations: IDDSI Level 7 - Regular and IDDSI Level 0- Thin Therapy Frequency: PRN for DT Goals Snf Goal Monika Ordaz will maintain adequate hydration/nutrition with optimum safety and efficiency of swallowing function on PO intake without overt signs and symptoms of aspiration for the highest appropriate diet level. Short Term Goal(s) Monika Ordaz will meet nutritional needs by oral diet of regular and thin without s/s of aspiration. 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 (CMS/HCC) Diabetic peripheral neuropathy (CMS/HCC) Dysphagia Epigastric pain ETD (eustachian tube dysfunction) Heartburn Obesity (BMI 30.0-34.9) JONATHAN treated with BiPAP Physical debility Rheumatoid arthritis with positive rheumatoid factor (CMS/HCC) Spondylosis of lumbar region without myelopathy or radiculopathy Systemic lupus erythematosus (CMS/HCC) Hyperlipidemia Type 2 diabetes mellitus, with long-term current use of insulin (CMS/HCC) Hepatic encephalopathy (CMS/HCC) Acute kidney injury superimposed on stage 3b chronic kidney disease (CMS/HCC) 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) Secondary esophageal varices without bleeding (CMS/HCC) Portal hypertensive gastropathy (CMS/HCC) Cirrhosis of liver with ascites (CMS/HCC) Irritable bowel syndrome with both constipation and diarrhea Carpal tunnel syndrome Hx of spontaneous bacterial peritonitis Other ascites Moderate protein-calorie malnutrition (CMS/HCC) Caregiver not readily available Pleural effusion associated with hepatic disorder LLQ abdominal pain Self-care deficit CARLOTTA (acute kidney injury) (CMS/HCC) Other neutropenia (CMS/HCC) Pancytopenia Hypomagnesemia [2] Past Medical History: Diagnosis Date ADHD (attention deficit hyperactivity disorder) Allergic Anxiety disorder, unspecified Anxiety Bleeding gums Blood in urine Cataract Chronic kidney disease Cirrhosis (CMS/HCC) Colon cancer screening 09/20/2019 Added automatically from request for surgery [id number] Coronary artery disease Depression 1996 Diabetes mellitus [...] uncomplicated Asthma Unspecified osteoarthritis, unspecified site Arthritis [3] Past Surgical History: Procedure Laterality Date APPENDECTOMY 1979 BLADDER SURGERY N/A Bladder surgery from [facility] BREAST BIOPSY 2011 BREAST SURGERY 2010 BUNIONECTOMY Right CATARACT EXTRACTION Bilateral 2016 CHOLECYSTECTOMY 1979 ESOPHAGOGASTRODUODENOSCOPY HYSTERECTOMY N/A Hysterectomy from [facility] KNEE SURGERY Bilateral ORAL SURGERY N/A Oral surgery from [facility] OTHER SURGICAL HISTORY 2014 ROOT CANAL WISDOM TOOTH EXTRACTION * Progress Notes - Veronica Del Valle DO - 06/28/2025 6:35 AM EDT FAMILY MEDICINE Daily Progress Note Patient: Monika Ordaz 64 y.o. Subjective Monika Ordaz is a 64 y.o. female who was seen and evaluated on 06/28/2025. Currently on Hospital Day Hospital Day: 4. NAEON. No concerns from Nursing. This AM: Patient states she feels much better now that she had the paracentesis/thoracentesis. Patient stated she had 3L taken off the belly and 1.7L taken from the lungs. Patient also stated she wasgiven albumin by the IR team after the procedure. Patient ate lunch and dinner yesterday, and was planning on eating breakfast this morning. Patient states she can breathe much easier now. Patient denies chest pain, palpitations, SOB, fevers/chills. Patient states her abdominal pain is improved. Patient is able to ambulate to the restroom with the assistance of the nurse. Review of Systems Additional review of systems negative except per HPI. Objective Visit Vitals BP 113/59 Pulse 61 Temp 36.5 ??C (97.7 ??F) Resp 17 Ht 1.651 m (5' 5 ) Wt 81.9 kg (180 lb 8.9 oz) SpO2 95% BMI 30.05 kg/m?? OB Status Postmenopausal Smoking Status Never BSA 1.94 m?? Physical Exam Constitutional: General: She is not in acute distress. Appearance: Normal appearance. She is not ill-appearing. HENT: Head: Normocephalic and atraumatic. Eyes: General: No scleral icterus. Conjunctiva/sclera: Conjunctivae normal. Cardiovascular: Rate and Rhythm: Normal rate and regular rhythm. Pulses: Normal pulses. Heart sounds: Normal heart sounds. No murmur heard. No friction rub. No gallop. Pulmonary: Effort: Pulmonary effort is normal. No respiratory distress. Breath sounds: Normal breath sounds. No wheezing, rhonchi or rales. Chest: Chest wall: No tenderness. Abdominal: General: There is distension. Tenderness: There is abdominal tenderness (Improved tenderness in LLQ). There is no guarding or rebound. Hernia: No hernia is present. Musculoskeletal: General: No swelling, deformity or signs of injury. Right lower leg: No edema. Left lower leg: No edema. Skin: General: Skin is warm. Capillary Refill: Capillary refill takes less than 2 seconds. Coloration: Skin is not jaundiced. Findings: No bruising or erythema. Neurological: General: No focal deficit present. Mental Status: She is alert and oriented to person, place, and time. Psychiatric: Mood and Affect: Mood normal. Behavior: Behavior normal. Labs and cultures: Reviewed and significant for some improvement of WBCs (1.69), neutrophils (0.69), platelets (40). Decreased H&H 8.3 and 24.6. Last glucose 149. Potassium 3.5, magnesium 1.8. LFTs improved. Creatinine and BUN improved to 1.66 and 28. Imaging/diagnostic studies: Reviewed and significant for CXR Assessment/Plan Assessment: Monika Ordaz is a 64 y.o. female with PMH COPD, CKD stage 3b, CAD, T2DM with diabetic neuropathy, dysphagia, obesity, JONATHAN (BiPAP nightly), RA/SLE, HLD, cirrhosis with ascites, esophageal varices, portal HTN, IBS C/D, admitted on 06/25/2025 for CARLOTTA in the setting of cirrhosis with ascites, now on Hospital Day: 4 requiring ongoing hospitalization for CARLOTTA and debility. Currently, the patient's condition is good based on improvement of LLQ pain, improvement of work of breathing, but debility requiring assistance. Assessment & Plan Acute kidney injury superimposed on stage 3b chronic kidney disease (CMS/HCC) Chronic kidney disease, stage 3b (CMS/HCC) Cirrhosis of liver with ascites (CMS/HCC) Hx of spontaneous bacterial peritonitis Pleural effusion associated with hepatic disorder LLQ abdominal pain - Creatinine 1.1-1.3 at baseline; improved to 1.66 on 06/28 - Paracentesis and thoracentesis performed 06/27; patient states removed 3L para and 1.7L thora - IR gave patient albumin 25% infusion 37.5g after procedures PLAN - Continue to trend creatinine on daily CMP - Reach back out to nephrology/hepatology if creatinine begins to rise - Continue home lactulose, rifaximin, and ciprofloxacin - Continue midodrine 10mg TID - Continue daily vit D 1000 U; [id number] U to be ordered on 06/30 if still admitted - Renally dose medications and avoid nephrotoxic agents Other neutropenia ([facility]/HCC) Pancytopenia - WBC 1.69 (baseline 4.0) with 0.69 absolute neutrophils - RBC 2.72 (baseline 3.0), platelets 40 (baseline 55) - Heparin for DVT prophylaxis resumed after procedures - aPTT 06/27 was 42 PLAN - Continue to monitor at this time - Consider blood smear in the future, if CBC values continue to decrease Physical debility Self-care deficit - Patient reports poor PO intake at home in s/o large-volume ascites - Family involved in and amenable to discussion of placement; concerned for declining ability to perform ADLs - PT/OT recommended home health; patient and family [facility] PLAN - Plan for placement in long-term care Type 2 diabetes mellitus, with long-term current use of insulin ([facility]/HCC) Diabetic peripheral neuropathy ([facility]/HCC) - Last POCT glucose 151 (before receiving 24U) - Received 2U correction this morning - Hypoglycemia precautions ordered due to reported hypoglycemia at home PLAN - Continue Glargine 24 U daily + resistant SSI - Continue to monitor glucose trends Dysphagia Heartburn - TOLL COLLECTOR SUPERVISOR attempted to see patient 06/27; was in procedure PLAN - Awaiting TOLL COLLECTOR SUPERVISOR eval - Continue to hold omeprazole Chronic obstructive pulmonary disease ([facility]/HCC) JONATHAN treated with BiPAP - Chronic; on home BiPAP, per RT recs 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 (CMS/HCC) Hyperlipidemia - Chronic; Continue to hold Crestor Obesity (BMI 30.0-34.9) - Chronic; Complicates all aspects of care Hypomagnesemia - 1.6 on admission; 1.8 06/28 - Given 2g mag IV on 06/27 PLAN - Continue magnesium oxide 400 mg daily - Plan to replete if it remains low F: PO E: Monitor and replace as necessary N: Adult diet Diet texture: Regular; Carbohydrate restriction: Consistent Carb 2 (80 gm max/meal); Electrolyte Restriction: Renal GI: no PPI DVT prophylaxis: Heparin Lines and Tubes: pIV CODE: Full Code SOCIAL: Currently living with sister in [facility] PT/OT: consulted, appreciate recommendations Consultants: PT/OT, nutrition, hepatology, nephrology, IR Disposition: Medically Ready for Discharge: Anticipated in 2-4 Days [] CARLOTTA resolution [] Placement Veronica Del Valle DO, Family Medicine, PGY-1 [facility] Cosigned by Chilo Morales MD at 06/29/2025 8:30 AM EDT Associated attestation - Chilo Morales MD - 06/29/2025 8:30 AM EDT I saw and evaluated the patient. I discussed the case with the resident/fellow and agree with the findings and plan as documented. * Care Plan - Bia Carrillo - 06/28/2025 3:40 AM EDT Problem: Fall Injury Risk Goal: Absence of Fall and Fall-Related Injury Outcome: Ongoing, Progressing Intervention: Identify and Manage Contributors Flowsheets (Taken 06/28/2025 0300) Medication Review/Management: medications reviewed Self-Care Promotion: independence encouraged Intervention: Promote Injury-Free Environment Flowsheets (Taken 06/28/2025 0300) Safety Promotion/Fall Prevention: assistive device/personal items within reach clutter-free environment maintained lighting adjusted fall prevention program maintained room organization consistent nonskid shoes/slippers when out of bed Problem: Skin Injury Risk Increased Goal: Skin Health and Integrity Outcome: Ongoing, Progressing Intervention: Optimize Skin Protection Flowsheets Taken 06/28/2025 030 Pressure Reduction Techniques: frequent weight shift encouraged Pressure Reduction Devices: positioning supports utilized Skin Protection: incontinence pads utilized Taken 06/27/20251999 Activity Management: activity adjusted per tolerance Head of Bed (HOB) Positioning: HOB elevated Intervention: Promote and Optimize Oral Intake Flowsheets (Taken 06/28/2025 0300) Oral Nutrition Promotion: rest periods promoted Nutrition Interventions: frequent small meals provided Problem: Adult Inpatient Plan of Care Goal: Plan of Care Review Outcome: Ongoing, Progressing Flowsheets (Taken 06/28/2025 0339) Progress: improving Plan of Care Reviewed With: patient Goal: Patient-Specific Goal (Individualized) Outcome: Ongoing, Progressing Goal: Absence of Hospital-Acquired Illness or Injury Outcome: Ongoing, Progressing Intervention: Identify and Manage Fall Risk Flowsheets (Taken 06/28/2025 030) Safety Promotion/Fall Prevention: assistive device/personal items within reach clutter-free environment maintained lighting adjusted fall prevention program maintained room organization consistent nonskid shoes/slippers when out of bed Intervention: Prevent Skin Injury Flowsheets Taken 06/28/2025299 Skin Protection: incontinence pads utilized Taken 06/27/20251999 Body Position: weight shifting Intervention: Prevent and Manage VTE (Venous Thromboembolism) Risk Flowsheets (Taken 06/27/20251999) VTE Prevention/Management: medication Intervention: Prevent Infection Flowsheets (Taken 06/28/2025 030) Infection Prevention: rest/sleep promoted hand hygiene promoted Goal: Optimal Comfort and Wellbeing Outcome: Ongoing, Progressing Intervention: Monitor Pain and Promote Comfort Flowsheets (Taken 06/28/2025 0300) Pain Management Interventions: declines Intervention: Provide Person-Centered Care Flowsheets (Taken 06/28/2025 030) Trust Relationship/Rapport: care explained choices provided Problem: Acute Kidney Injury/Impairment Goal: Fluid and Electrolyte Balance Outcome: Ongoing, Progressing Intervention: Monitor and Manage Fluid and Electrolyte Balance Flowsheets (Taken 06/28/2025 0300) Fluid/Electrolyte Management: fluids provided Goal: Improved Oral Intake Outcome: Ongoing, Progressing Intervention: Promote and Optimize Oral Intake Flowsheets (Taken 06/28/2025 030) Oral Nutrition Promotion: rest periods promoted Nutrition Interventions: frequent small meals provided Goal: Effective Renal Function Outcome: Ongoing, Progressing Intervention: Monitor and Support Renal Function Flowsheets (Taken 06/28/2025 0300) Stabilization Measures: legs elevated Medication Review/Management: medications reviewed * Care Plan - Karen Guzman RN - 06/27/2025 3:29 PM EDT Problem: Fall Injury Risk Goal: Absence of Fall and Fall-Related Injury Outcome: Ongoing, Progressing Intervention: Identify and Manage Contributors Flowsheets (Taken 06/27/2025 1300) Medication Review/Management: medications reviewed Self-Care Promotion: independence encouraged BADL personal objects within reach BADL personal routines maintained meal set-up provided Intervention: Promote Injury-Free Environment Flowsheets (Taken 06/27/2025 1300) Safety Promotion/Fall Prevention: activity supervised assistive device/personal items within reach clutter-free environment maintained fall prevention program maintained lighting adjusted mobility aid in reach nonskid shoes/slippers when out of bed room organization consistent safety round/check completed toileting scheduled Problem: Skin Injury Risk Increased Goal: Skin Health and Integrity Outcome: Ongoing, Progressing Intervention: Optimize Skin Protection Flowsheets (Taken 06/27/2025 1300) Activity Management: ambulated in room Pressure Reduction Techniques: heels elevated off bed Pressure Reduction Devices: specialty bed utilized Skin Protection: transparent dressing maintained Head of Bed (HOB) Positioning: HOB elevated Intervention: Promote and Optimize Oral Intake Flowsheets (Taken 06/27/2025 1300) Oral Nutrition Promotion: physical activity promoted Nutrition Interventions: frequent small meals provided Problem: Adult Inpatient Plan of Care Goal: Plan of Care Review Outcome: Ongoing, Progressing Goal: Patient-Specific Goal (Individualized) Outcome: Ongoing, Progressing Goal: Absence of Hospital-Acquired Illness or Injury Outcome: Ongoing, Progressing Intervention: Identify and Manage Fall Risk Flowsheets (Taken 06/27/2025 1300) Safety Promotion/Fall Prevention: activity supervised assistive device/personal items within reach clutter-free environment maintained fall prevention program maintained lighting adjusted mobility aid in reach nonskid shoes/slippers when out of bed room organization consistent safety round/check completed toileting scheduled Intervention: Prevent Skin Injury Flowsheets (Taken 06/27/2025 1300) Body Position: weight shifting Skin Protection: transparent dressing maintained Intervention: Prevent and Manage VTE (Venous Thromboembolism) Risk Flowsheets (Taken 06/27/2025 1300) VTE Prevention/Management: previous patient education reinforced Intervention: Prevent Infection Flowsheets (Taken 06/27/2025 1300) Infection Prevention: rest/sleep promoted Goal: Optimal Comfort and Wellbeing Outcome: Ongoing, Progressing Intervention: Monitor Pain and Promote Comfort Flowsheets (Taken 06/27/2025 1300) Pain Management Interventions: rest Intervention: Provide Person-Centered Care Flowsheets (Taken 06/27/2025 1300) Trust Relationship/Rapport: care explained Problem: Acute Kidney Injury/Impairment Goal: Fluid and Electrolyte Balance Outcome: Ongoing, Progressing Intervention: Monitor and Manage Fluid and Electrolyte Balance Flowsheets (Taken 06/27/2025 1300) Fluid/Electrolyte Management: oral rehydration therapy initiated Goal: Improved Oral Intake Outcome: Ongoing, Progressing Intervention: Promote and Optimize Oral Intake Flowsheets (Taken 06/27/2025 1300) Oral Nutrition Promotion: physical activity promoted Nutrition Interventions: frequent small meals provided Goal: Effective Renal Function Outcome: Ongoing, Progressing Intervention: Monitor and Support Renal Function Flowsheets (Taken 06/27/2025 1300) Stabilization Measures: legs elevated Medication Review/Management: medications reviewed * Assessment & Plan Note - Chilo Morales MD - 06/27/2025 3:08 PM EDT Associated Problem(s): Acute kidney injury superimposed on stage 3b chronic kidney disease (CMS/HCC) (Resolved 07/07/2025) - MELD 3.0: 26 on 06/27 - MELD-Na: 25 on 06/27 - Creatinine 1.1-1.3 at baseline; 1.95 on 06/26 - Vitals stable; Vitals q4h - Daily CBC, Mg, and Phos labs ordered - HRS ruled out - Cystatin C 3.12; baseline 2 - No patient complaints of worsening SOB PLAN - Continue to trend creatinine on daily CMP - Reach back out to nephrology/hepatology if patient worsens - If creatinine trends up, can consider albumin challenge; per hepatology recs - IR completing paracentesis/thoracentesis today to keep consistent weekly schedule; will follow lab results - Continue home lactulose, rifaximin, and ciprofloxacin - Continue midodrine 10mg TID - Continue daily vit D 1000 U; [id number] U to be ordered on 06/30 if still admitted - Renally dose medications and avoid nephrotoxic agents * Assessment & Plan Note - Chilo Morales MD - 06/27/2025 3:08 PM EDT Associated Problem(s): Chronic kidney disease, stage 3b (CMS/HCC) - MELD 3.0: 26 on 06/27 - MELD-Na: 25 on 06/27 - Creatinine 1.1-1.3 at baseline; 1.95 on 06/26 - Vitals stable; Vitals q4h - Daily CBC, Mg, and Phos labs ordered - HRS ruled out - Cystatin C 3.12; baseline 2 - No patient complaints of worsening SOB PLAN - Continue to trend creatinine on daily CMP - Reach back out to nephrology/hepatology if patient worsens - If creatinine trends up, can consider albumin challenge; per hepatology recs - IR completing paracentesis/thoracentesis today to keep consistent weekly schedule; will follow lab results - Continue home lactulose, rifaximin, and ciprofloxacin - Continue midodrine 10mg TID - Continue daily vit D 1000 U; [id number] U to be ordered on 06/30 if still admitted - Renally dose medications and avoid nephrotoxic agents * Assessment & Plan Note - Chilo Morales MD - 06/27/2025 3:08 PM EDT Associated Problem(s): Cirrhosis of liver with ascites (CMS/HCC) - MELD 3.0: 26 on 06/27 - MELD-Na: 25 on 06/27 - Creatinine 1.1-1.3 at baseline; 1.95 on 06/26 - Vitals stable; Vitals q4h - Daily CBC, Mg, and Phos labs ordered - HRS ruled out - Cystatin C 3.12; baseline 2 - No patient complaints of worsening SOB PLAN - Continue to trend creatinine on daily CMP - Reach back out to nephrology/hepatology if patient worsens - If creatinine trends up, can consider albumin challenge; per hepatology recs - IR completing paracentesis/thoracentesis today to keep consistent weekly schedule; will follow lab results - Continue home lactulose, rifaximin, and ciprofloxacin - Continue midodrine 10mg TID - Continue daily vit D 1000 U; [id number] U to be ordered on 06/30 if still admitted - Renally dose medications and avoid nephrotoxic agents * Assessment & Plan Note - Chilo Morales MD - 06/27/2025 3:08 PM EDT Associated Problem(s): Hx of spontaneous bacterial peritonitis - MELD 3.0: 26 on 06/27 - MELD-Na: 25 on 06/27 - Creatinine 1.1-1.3 at baseline; 1.95 on 06/26 - Vitals stable; Vitals q4h - Daily CBC, Mg, and Phos labs ordered - HRS ruled out - Cystatin C 3.12; baseline 2 - No patient complaints of worsening SOB PLAN - Continue to trend creatinine on daily CMP - Reach back out to nephrology/hepatology if patient worsens - If creatinine trends up, can consider albumin challenge; per hepatology recs - IR completing paracentesis/thoracentesis today to keep consistent weekly schedule; will follow lab results - Continue home lactulose, rifaximin, and ciprofloxacin - Continue midodrine 10mg TID - Continue daily vit D 1000 U; [id number] U to be ordered on 06/30 if still admitted - Renally dose medications and avoid nephrotoxic agents * Assessment & Plan Note - Chilo Morales MD - 06/27/2025 3:08 PM EDT Associated Problem(s): Pleural effusion associated with hepatic disorder - MELD 3.0: 26 on 06/27 - MELD-Na: 25 on 06/27 - Creatinine 1.1-1.3 at baseline; 1.95 on 06/26 - Vitals stable; Vitals q4h - Daily CBC, Mg, and Phos labs ordered - HRS ruled out - Cystatin C 3.12; baseline 2 - No patient complaints of worsening SOB PLAN - Continue to trend creatinine on daily CMP - Reach back out to nephrology/hepatology if patient worsens - If creatinine trends up, can consider albumin challenge; per hepatology recs - IR completing paracentesis/thoracentesis today to keep consistent weekly schedule; will follow lab results - Continue home lactulose, rifaximin, and ciprofloxacin - Continue midodrine 10mg TID - Continue daily vit D 1000 U; [id number] U to be ordered on 06/30 if still admitted - Renally dose medications and avoid nephrotoxic agents * Assessment & Plan Note - Chilo Morales MD - 06/27/2025 3:08 PM EDT Associated Problem(s): LLQ abdominal pain (Resolved 07/09/2025) - MELD 3.0: 26 on 06/27 - MELD-Na: 25 on 06/27 - Creatinine 1.1-1.3 at baseline; 1.95 on 06/26 - Vitals stable; Vitals q4h - Daily CBC, Mg, and Phos labs ordered - HRS ruled out - Cystatin C 3.12; baseline 2 - No patient complaints of worsening SOB PLAN - Continue to trend creatinine on daily CMP - Reach back out to nephrology/hepatology if patient worsens - If creatinine trends up, can consider albumin challenge; per hepatology recs - IR completing paracentesis/thoracentesis today to keep consistent weekly schedule; will follow lab results - Continue home lactulose, rifaximin, and ciprofloxacin - Continue midodrine 10mg TID - Continue daily vit D 1000 U; [id number] U to be ordered on 06/30 if still admitted - Renally dose medications and avoid nephrotoxic agents * Assessment & Plan Note - Chilo Morales MD - 06/27/2025 3:08 PM EDT Associated Problem(s): Neutropenia - WBC 2.26 (baseline 4.0) with 0.98 absolute neutrophils - RBC 2.83 (baseline 3.0), platelets 38 (baseline 55) PLAN - Continue to monitor at this time - Heparin q12h for DVT prophylaxis held for paracentesis; will resume after procedure - aPTT ordered to monitor heparin therapy * Assessment & Plan Note - Chilo Morales MD - 06/27/2025 3:08 PM EDT Associated Problem(s): Pancytopenia - WBC 2.26 (baseline 4.0) with 0.98 absolute neutrophils - RBC 2.83 (baseline 3.0), platelets 38 (baseline 55) PLAN - Continue to monitor at this time - Heparin q12h for DVT prophylaxis held for paracentesis; will resume after procedure - aPTT ordered to monitor heparin therapy * Assessment & Plan Note - Chilo Morales MD - 06/27/2025 3:08 PM EDT Associated Problem(s): Physical debility - Patient reports poor PO intake in s/o large-volume ascites - Episode of severe debility the other day (couldn't use phone, had to go to neighbors for help) - Family involved in and amenable to discussion of placement; concerned for declining ability to perform ADLs PLAN - PT/OT recommended home health - Nutrition consulted; recs appreciated - Patient agreeable to [facility] * Assessment & Plan Note - Chilo Morales MD - 06/27/2025 3:08 PM EDT Associated Problem(s): Self-care deficit - Patient reports poor PO intake in s/o large-volume ascites - Episode of severe debility the other day (couldn't use phone, had to go to neighbors for help) - Family involved in and amenable to discussion of placement; concerned for declining ability to perform ADLs PLAN - PT/OT recommended home health - Nutrition consulted; recs appreciated - Patient agreeable to [facility] * Assessment & Plan Note - Chilo Morales MD - 06/27/2025 3:08 PM EDT Associated Problem(s): Type 2 diabetes mellitus, with long-term current use of insulin ([facility]) - BG 245 on arrival; last POCT glucose 108 - Glargine 24 U daily + resistant SSI ordered on admission - Hypoglycemia precautions ordered due to reported hypoglycemia at home PLAN - Continue to monitor BG trends; if any concerns over the afternoon, will adjust regimen as necessary * Assessment & Plan Note - Chilo Morales MD - 06/27/2025 3:08 PM EDT Associated Problem(s): Diabetic peripheral neuropathy (CMS/HCC) - BG 245 on arrival; last POCT glucose 108 - Glargine 24 U daily + resistant SSI ordered on admission - Hypoglycemia precautions ordered due to reported hypoglycemia at home PLAN - Continue to monitor BG trends; if any concerns over the afternoon, will adjust regimen as necessary * Assessment & Plan Note - Chilo Morales MD - 06/27/2025 3:08 PM EDT Associated Problem(s): Dysphagia - Chronic; advised to hold home omeprazole at most recent nephrology appointment due to concern forAKI PLAN - Continue to hold omeprazole - 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; appreciate recommendations * Assessment & Plan Note - Chilo Morales MD - 06/27/2025 3:08 PM EDT Associated Problem(s): Heartburn - Chronic; advised to hold home omeprazole at most recent nephrology appointment due to concern forAKI PLAN - Continue to hold omeprazole - 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; appreciate recommendations * Assessment & Plan Note - Chilo Morales MD - 06/27/2025 3:08 PM EDT Associated Problem(s): Chronic obstructive pulmonary disease (CMS/HCC) - Chronic; on BiPAP nightly at home - Sister is bringing home BiPAP this afternoon PLAN - Continue nightly BiPAP at 12/6 per RT recs; RT to adjust settings as appropriate * Assessment & Plan Note - Chilo Morales MD - 06/27/2025 3:08 PM EDT Associated Problem(s): JONATHAN treated with BiPAP - Chronic; on BiPAP nightly at home - Sister is bringing home BiPAP this afternoon PLAN - Continue nightly BiPAP at 12/6 per RT recs; RT to adjust settings as appropriate * Assessment & Plan Note - Chilo Morales MD - 06/27/2025 3:08 PM EDT Associated Problem(s): 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 ([facility]) - Chronic; Crestor discontinued at most recent nephrology appointment PLAN - Continue to hold Crestor * Assessment & Plan Note - Chilo Morales MD - 06/27/2025 3:08 PM EDT Associated Problem(s): Hyperlipidemia - Chronic; Crestor discontinued at most recent nephrology appointment PLAN - Continue to hold Crestor * Assessment & Plan Note - Chilo Morales MD - 06/27/2025 3:08 PM EDT Associated Problem(s): Obesity (BMI 30.0-34.9) (Resolved 07/09/2025) - Chronic; Complicates all aspects of care * Assessment & Plan Note - Chilo Morales MD - 06/27/2025 3:08 PM EDT Associated Problem(s): Hypomagnesemia (Resolved 07/09/2025) - 1.6 on admission; 1.5 06/27 PLAN - Continue magnesium oxide 400 mg daily - Will recheck magnesium level today and replete if it remains low * Progress Notes - Venessa Brown - 06/27/2025 1:46 PM EDT Case Management Adult Progress Note Monika Ordaz 64 y.o. female CSN: [id number] Admission: 06/25/2025 2:14 PM Primary Problem: Acute kidney injury superimposed on stage 3b chronic kidney disease (CMS/HCC) Additional Comments JHONNY met with the Family Medicine team to review pts POC. Pts recommendations from PT/OT are home with 24 hour care and home health. Pt told SW in her meeting yesterday that she will not be able to return to her sisters home in [place] and her son is not able to care for her. Pt stated that she is agreeable to going to SNF/LTC. SW sent out referrals for SNF on behalf of patient. Currently there are no accepting facilities and search was broadened. SW will continue to follow and assist. Venessa Brown * Hospital Course - Juliane Rodriguez - 06/27/2025 1:34 PM EDT History of Present Illness Monika Ordaz is a 64 y.o. female with PMH significant for COPD, CKD stage IIIB, coronary arterydisease, diabetic neuropathy, dysphagia, obesity, JONATHAN on BiPAP nightly, RA, SLE, HLD, type 2 DM, cirrhosis with ascites, esophageal varices, portal hypertension, IBS C/D, presenting from nephrology with concern for CARLOTTA and inability to care for self. On arrival to [facility], patient promptly evaluated by FM Team. Three of her family members are also present at bedside and helps provide the history. Patient confirms the above history provided by the ED.States that the LLQ pain that she is currently experiencing is due to having had a sample of her ascites taken a few days ago. She otherwise has no new complaints at this time. Following interview, 2of her family members state that they are becoming increasingly concerned that they will not be able to care for her as her chronic illnesses progress. State that she has become transiently confused more frequently at home. Patient confirms and states that most recently, she had an issue where she had forgotten how to perform basic hygiene after using the bathroom. Family are requesting patient be placed in a facility with 24 hour care until she is ???stronger?? and able to perform her ADLs. They state they have had this conversation with their PCP already and/or currently working toward that goal. Family Medicine consulted for CARLOTTA in setting of cirrhosis concerning for HRS and patient admitted under attending Dr. Morales. ED Summary Per discussion with ED providers, patient presented to nephrology clinic today for follow up of CKD. Labs were concerning for CARLOTTA and Nephrology was concerned enough to send patient to ED for furtherworkup especially in setting of her general inability to care for self with potential social concerns. Per ED she is hemodynamically stable, occasionally gets paracentesis 1 time per week on with the occasional thoracentesis. She is potentially endorsing some LLQ pain and they found rightpleural effusion versus pneumonia on imaging. Vitals POA: Temp 98.2??, pulse 65, RR 16, BP 121/61, SpO2 98% on room air. Lab work pertinent for CBC with leukopenia WBC 2.33, hemoglobin 9.3 around baseline (normocytic), platelet count 39 (lowest in recent history), PT/INR elevated, CMP with elevated BG 242, creatinine 2.5 on baseline 1.1-1.3, liver enzymes slightly elevated, T bili 2.1, Mag 1.6. ED Imaging conducted and significant for, CXR concerning for new medium-sized right pleural effusion with right lower/middle lobe opacities possibly representing atelectasis versus infection. Additional workup/management in ED includes but not limited to: EKG. Problem Based Summaries #CARLOTTA superimposed on stage 3b CKD #CKD, stage 3b #Cirrhosis of liver with ascites #Hx of spontaneous bacterial peritonitis #Pleural effusion associated with hepatic disorder #LLQ abdominal pain #Vagal Syncope MELD 3.0 changed from 31 on admission and MELD-Na was 28 on admission. Creatinine on admission was 2.5 on baseline 1.1-1.3 and decreased to 1.95. Continued home lactulose, rifaximin, and ciprofloxacin. Midodrine was decreased from 20 mg TID to 10 mg TID. Daily CBC, CMP, Mg, and Phos labs were ordered. Cystatin C was 3.12 up from a baseline 2. Daily vit D 1000 U was continued. Weekly 89130 vit D was not resumed during hospital stay. Medications were renally dosed and nephrotoxic agents were avoided. Nephrology was consulted and agreed with patient's plan. Hepatology recommended SBP labs with paracentesis. Hepatorenal syndrome ruled out. Patient underwent paracentesis +/- thoracocentesis withIR on 06/27. CARLOTTA approaches resolution on 07/01 with Cr levels returning to 1.42. Cr levels elevated to 1.73 on 07/02 albumin challenge started and midodrine dose increased to 15 mg TID. Paracentesis with as needed thoracocentesis are scheduled on . CARLOTTA resolved. Patient elected to come off oftransplant list in favor of pursuing prison care placement. MELD improved to 21. #Other neutropenia #Pancytopenia Baseline WBC is 4.0 and baseline RBC was 3.0. Most recent WBC was 3.24 with 1.84 absolute neutrophils and most recent RBC was 2.67. Labs were monitored throughout the patient's hospital stay. [id number] was initiated for DVT prophylaxis. Blood smear sent to pathology returns as pancytopenia not mo rphologically distinct. Neutropenia resolved 07/01. Patient neutropenic once again on 07/07 with ANC 1.48 though remained without symptoms. Given chronic autoimmune disease and no rheumatology appointments since 2021, will refer patient to rheumatology at discharge. #Physical debility #Self-care deficit Patient reported poor PO intake due to large volume ascites. There was an episode of severe debility the other day where the patient was not able to use the phone and had to go to neighbors for help.Family is involved and amenable to discussion of placement due to concern for declining ability to perform ADLs. PT/OT recommended home health. Nutrition was consulted for recommendations. The patient was amenable to going to [place] [facility] facility. 06/28, patient had an episode of feeling off which she was unable to describe, but which concerned her greatly. She stated she gets this feeling multiple times a week, worst on Fridays, and states that she is unable to concentrate or perform regular tasks (bathroom hygiene, phone calls). After prolonged GOC discussion with patient and family, patient elected to pursue LTC as this is the option she feels will best meet her care needs. Palliative care consulted to discuss their services with patient. Patient was agreeable to NH placement andbegan working on living will and designated MDM while in hospital. #T2DM #Diabetic peripheral neuropathy Blood glucose on admission was 245. Glargine 24 U and resistant SSI were ordered. Hyperglycemia precautions were in place due to reported hypoglycemia at home. Blood glucose trends were monitored throughout the patient's hospital stay. #Dysphagia #Heartburn Patient was advised to hold home omeprazole at most recent nephrology appointment due to concern for CARLOTTA. TOLL COLLECTOR SUPERVISOR consult ordered. TOLL COLLECTOR SUPERVISOR saw patient and determined no overt s/s dysphagia or aspiration, butadvised to consider further evaluation of esophageal phase of swallow if continuing problems. #COPD #JONATHAN treated with BiPAP Patient continued nightly BiPAP at 12/6 per RT recommendations with RT adjusting settings as appropriate. #CAD with stable angina #HLD Crestor was discontinued at her most recent nephrology appointment. Continued to hold Crestor in the hospital. #Hypomagnesemia Magnesium was 1.6 on admission. Patient takes magnesium oxide 400 mg PO at home. Magnesium was monitored throughout hospital stay with repletion as needed. #Serum ammonia increased Patient's ammonia increased to 125 on 06/29. She takes Lactulose 20 TID at home and reports occasionally missing her third dose. She has been receiving all 3 doses while in the hospital and has continued bowel movements. Home Lactulose was continued. Ammonia level showed improvement to 61 on repeat 06/30. Patient began having additional episodes of brain fog and decreased bowel movements. Ammonia level increased to 146 on 07/08. Lactulose was increased to 30 g TID on 07/08. Patient has a history of hepatic encephalopathy with some episodes of feeling off while in the hospital due to improper dosing of Lactulose. She is AAOx3 at this time and has been having 4-5 bowel movements. #Constipation Patient noted to be constipated on 07/07. Started on Miralax and Senna regimen in addition to continued home medications. Miralax can be titrated to have 4 bowel movements daily. #Adult Chronic conditions Obesity SLE RA Medication changes: New Medications: Senna Discontinued Medications: None Medication Modifications: Midodrine increased to 15 mg TID TCM Follow Up - Rheumatology follow up? - Further vagal episodes? - Encourage repeat cbc for resolution of leukopenia - Palliative care discussion - LTC - Ensure patient is having bowel movements with Lactulose - Additional episodes of feeling off ? - Discuss anxiety Outside Specialities & Follow-up Appointments: - Rheumatology - Hepatology - Palliative care - IR Temp: [36.7 ??C (98 ??F)-37.1 ??C (98.7 ??F)] 36.7 ??C (98 ??F) Heart Rate: [61-77] 71 BP: (103-133)/(50-71) 120/67 SpO2: [96 %-98 %] 98 % * Clinician Note - Laura Garcia CCC-TOLL COLLECTOR SUPERVISOR - 06/27/2025 1:22 PM EDT Speech Language Pathology - Attempt Patient Name: Monika Ordaz Age: 64 y.o. Today's Date: 06/27/2025 Chart review completed. Attempted to see patient today for clinical swallow evaluation x2. Pt out of room for procedure. TOLL COLLECTOR SUPERVISOR team to follow up as schedule allows. * Consults - eDlfin Gibson - 06/27/2025 1:00 PM EDT Pastoral Care Note Plant Specialist visited with Monika, her mother and sister. Monika shared concerns for her livelihood if she does not get back on the transplant list. She says she has made her peace with where she is going. She asked for prayer for her family and her kidney issues to improve that she may be well enough for the surgery. She also shared concerns for organ donors and their families. Plant Specialist listened empathetically, provided emotional and spiritual support for Monika and her family. Referral From: Plant Specialist Initiated Pastoral Care Provided For: Patient, Parent(s), Sibling(s) Patient Profile: Consult Reasons: Initial visit Spiritual Assessment: Support Systems/ Spiritual Resources: Nicolasa, Family, Prayer Spiritual Needs: Emotional support, Prayer, Spiritual support Spiritual Issues: Chronic pain/ illness, Family concerns, Change/ transition, Critical Illness Interventions: Interventions Provided: Identify uatsdin/ spiritual coping, Prayer, Spiritual support, Emotional support, Family support, Introduced Patient/Family to Plant Specialist Services, Supportive Listening, Consulted with care team Pastoral Care Outcomes: Patient Outcomes: Demonstrates lower level of Anxious(ness), Communicates increased satisfaction with hospital experience, Appreciative of Plant Specialist Support, Gratitude, Expresses intent to participate/comply in plan of care, Demonstrates and/or verbalizes increased comfort * Post-Procedure Note - Marianna Gordon APRN - 06/27/2025 10:07 AM EDT Vascular and Interventional Radiology Brief Postprocedure Note Performed by: Marianna Gordon APRN Manager Of Exhibitions And Collections: LOUISE Pre-operative Diagnosis: right pleural effusion and [...] complication and is in stable condition. * Consults - Delfin Gibson - 06/27/2025 9:55 AM EDT Pastoral Care Note Plant Specialist attempted to visit with Monika. She was out of the room, no family present at this time. Plant Specialist consulted with care team and will follow up as able. Referral From: Plant Specialist Initiated Pastoral Care Provided For: Patient Patient Profile: Consult Reasons: Initial visit Unable to Assess: Unavailable, No family present at this time Spiritual Assessment: Support Systems/ Spiritual Resources: Unknown Interventions: Interventions Provided: Attempted visit, Consulted with care team Pastoral Care Outcomes: Patient Outcomes: Unable to Assess * Consults - Marianna Gordon APRN - 06/27/2025 8:23 AM EDT 06/27/25 Patient: Monika Ordaz Date of : 1960/64 y.o. Date of Visit: June 27, 2025 Requesting Service: Chilo Morales MD Chief Complaint: Abnormal lab History of Present Illness: Monika Ordaz is a 64 y.o. 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 She is presenting to on 06/25/25from Nephrology clinic with concern for CARLOTTA and inability to care for self. Of note, we are familiar with Ms. Ordaz as we perform outpatient paracentesis/thoracentesis on her nearly weekly. Last one being on 06/20/25. Vitals POA: Temp 98.2??, pulse 65, RR 16, BP 121/61, SpO2 98% on room air. Lab work pertinent for CBC with leukopenia WBC 2.33, hemoglobin 9.3 around baseline (normocytic), platelet count 39 (lowest in recent history), PT/INR elevated, CMP with elevated BG 242, creatinine 2.5 on baseline 1.1-1.3, liver enzymes slightly elevated, T bili 2.1, Mag 1.6. CXR with moderate right pleural effusion. She was already scheduled with us as outpatient for thoracentesis and paracentesis on 06/27/25. We are consulted to perform inpatient. History and admission information obtained from chart review of primary and consulting teams notation , as well as speaking directly to consulting team. The following portions of the chart were reviewed this encounter and updated as appropriate: Review of Systems: 14 point ROS negative of symptoms except for listed above in HPI. Past Medical History Pertinent Negatives[1] Surgical History[2] Social History[3] Family History: Personally reviewed and noncontributory. Allergies[4] Objective: All laboratory, images, tracings, and vital sign data are personally reviewed unless otherwise noted. VITALS: Temp: [36.7 ??C (98 ??F)-37.1 ??C (98.8 ??F)] 37.1 ??C (98.8 ??F) Heart Rate: [59-69] 64 Resp: [16-17] 17 BP: (112-133)/(53-67) 112/53 Weight: 79.8 kg (176 lb) Body mass index is 30.05 kg/m??. I & O SUMMARY I/O last 3 completed shifts: In: 1170 (14.3 mL/kg) [P.O.:1170] Out: - (0 mL/kg) Weight: 81.9 kg No intake/output data recorded. MEDICATIONS: Current Medications[5] LABS (PAST 18Labs in last 18 hours) CBC WBC 2.26 (L) Hb 8.6 (L) Plt 38 (L) Hct 25.9 (L) INR ?? PTT ?? Anti-Xa ?? BMP Na 134 (L) Cl 108 (H) BUN 31 (H) Glu 139 (H) K 3.8 Co2 18 (L) Cr 1.95 (H) Ca 8.5 (L) Mg 1.5 (L) Phos 3.2 Lactate ?? LFT AST 60 (H) AlkPhos 215 (H) T Prot 5.8 (L) ALK 26 Bili 1.8 (H) Alb ?? D.Bili ?? HOURS) EXAM: GENERAL: No acute distress EYES: PERRL; No scleral icterus or conjunctivitis HENT: Atraumatic, normocephalic RESP/CHEST: Symmetric expansion; non labored. CARD: regular rate and rhythm Extremities: No edema, no cyanosis or clubbing. Pedal pulses palpable +2. GI: No organomegaly or masses. Soft, Nontender, nondistended. SKIN: No rash, sores, lesions or subcutaneous nodules. NEURO: Alert Radiographics/Diagnostics: Imaging personally reviewed and reviewed with attending. === 06/23/25 === CT [facility] OUTSIDE IMAGES === 06/25/25 === XR CHEST 1 VIEW - Narrative - CLINICAL INDICATION: hx of pleural effusion, SOA TECHNIQUE: XR CHEST 1 VIEW COMPARISON: 06/20/2025. FINDINGS: New medium-sized right pleural effusion. New right lower and middle lobe opacities. No pneumothorax. Decreased lung volumes with vascular crowding; cardiac silhouette and mediastinal contours are stable within these confines. - Impression - New medium-sized right pleural effusion. New right lower and middle lobe opacities may represent atelectasis, however superimposed infection cannot definitely be excluded. CRITICAL RESULT: No. COMMUNICATION: Per this written report. Drafted by Nory Singh MD on 06/25/2025 4:08 PM Final report signed by Nory Singh MD on 06/25/2025 4:12 PM Assessment & Plan: Decompensated cirrhosis, MASH Ascites Hepatic hydrothorax EV MELD 3.0: 26 at 06/27/2025 4:03 AM MELD-Na: 25 at 06/27/2025 4:03 AM Calculated from: Serum Creatinine: 1.95 mg/dL at 06/27/2025 4:03 AM Serum Sodium: 134 mmol/L at 06/27/2025 4:03 AM Total Bilirubin: 1.8 mg/dL at 06/27/2025 4:03 AM Serum Albumin: 2.8 g/dL at 06/27/2025 4:03 AM INR(ratio): 2 at 06/25/2025 3:00 PM Age at listin years Sex: Female at 06/27/2025 4:03 AM - HCC: No identified liver lesions on last imaging, 04/2025. AFP 4 = 05/07/25. 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 - HE: history of encephalopathy requiring intubation. Lactulose at home. - Ascites/hepatic hydrothorax: 7-10 days paracentesis/thoracentesis. - Personally reviewed paracentesis 06/20/25: 4.3L removed. - Personally reviewed thoracentesis 06/20/25: 1.4L removed. - Difficulty with titration of diuretics due to kidney function. - PTT ??, Plt 38 (L) - VSS, Afebrile CARLOTTA on CKD III -Creatinine 2.5 with baseline 1.1-1.3 -Nephrology following PLAN: - Will perform paracentesis and thoracentesis on 06/27/25 [will perform inpatient]. Of note, patient with CARLOTTA in regard to albumin administration. - Primary team to order any labs requested for analysis. - Please make NPO after midnight evening prior. - Hold anticoagulation. - Will consent prior to procedure. - Any questions with scheduling please call [phone] Thank you for allowing us to participate in the care of this patient. Marianna Gordon APRN Interventional Radiology [phone] [1] Past Medical History: Diagnosis Date ADHD (attention deficit hyperactivity disorder) Allergic Anxiety disorder, unspecified Anxiety Bleeding gums Blood in urine Cataract Chronic kidney disease Cirrhosis (CMS/HCC) Colon cancer screening 09/20/2019 Added automatically from request for surgery [id number] Coronary artery disease Depression 1995 Diabetes mellitus [...] 1979 BLADDER SURGERY N/A Bladder surgery from [facility] BREAST BIOPSY 2011 BREAST SURGERY 2010 BUNIONECTOMY Right CATARACT EXTRACTION Bilateral 2016 CHOLECYSTECTOMY 1979 ESOPHAGOGASTRODUODENOSCOPY HYSTERECTOMY N/A Hysterectomy from [facility] KNEE SURGERY Bilateral ORAL SURGERY N/A Oral surgery from [facility] OTHER SURGICAL HISTORY 2015 ROOT CANAL WISDOM TOOTH EXTRACTION [3] Social History Tobacco Use Smoking status: Never Passive exposure: Never Smokeless tobacco: Never Vaping Use Vaping status: Never Used Substance Use Topics Alcohol use: Not Currently Drug use: Never [4] No Known Allergies [5] Current Facility-Administered Medications: calcitriol (Rocaltrol) capsule 0.25 mcg, 0.25 mcg, Oral, Daily, Blayne Ordaz, , 0.25 mcg at 06/26/25914 calcium carbonate (Tums) chewable tablet 750 mg, 750 mg, Oral, Daily, Blayne Ordaz, , 750 mg at06/26/25920 capsaicin (Zostrix) 0.025 % cream, , Topical, BID PRN, Blayne Ordaz DO cetirizine (ZyrTEC) tablet 10 mg, 10 mg, Oral, Daily, Blayne Ordaz, , 10 mg at 06/26/25914 cholecalciferol (Vitamin D-3) tablet 1,000 Units, 1,000 Units, Oral, Daily, Blayne Ordaz DO, 1,000 Units at 06/26/25914 ciprofloxacin (Cipro) tablet 500 mg, 500 mg, Oral, Daily, Blayne Ordaz, , 500 mg at 06/26/25920 glucose (Glutose) 40 % oral gel 15-30 grams of glucose, 15-30 grams of glucose, Sublingual, q15 minPRN OR dextrose 10 % (D10W) bolus 125 mL, 125 mL, Intravenous, q15 min PRN OR dextrose 10 %(D10W) bolus 250 mL, 250 mL, Intravenous, q15 min PRN OR glucagon (human recombinant) injection1 mg, 1 mg, Intramuscular, q15 min PRN, Blayne Ordaz DO [Held by provider] heparin (porcine) injection 5,000 Units, 5,000 Units, Subcutaneous, q12h, Veronica Del Valle K, DO insulin glargine-yfgn 100 UNIT/ML injection 24 Units, 24 Units, Subcutaneous, Daily, Blayne Ordaz DO, 24 Units at 06/26/25914 insulin lispro (Admelog) 100 units/mL injection - Correction - Resistant Dose, 0-10 Units, Subcutaneous, TID with meals, Blayne Ordaz, DO, 6 Units at 06/26/25 171 insulin lispro (Admelog) injection - Correction - Nighttime Dose, 0-3 Units, Subcutaneous, Twice atnight, Blayne Ordaz, lactulose (Chronulac) 10 GM/15ML solution 20 g, 20 g, Oral, TID, Blayne Ordaz, DO, 20 g at 06/26/252111 magnesium oxide (Mag-Ox) tablet 400 mg, 400 mg, Oral, Daily, Blayne Ordaz, DO, 400 mg at midodrine (Proamatine) tablet 10 mg, 10 mg, Oral, TID, Veronica Del Valle K, DO, 10 mg at 06/26/252111 rifAXIMin (Xifaxan) tablet 550 mg, 550 mg, Oral, BID, Blayne Ordaz, DO, 550 mg at 06/26/252111 [COMPLETED] Insert peripheral IV, , , Once AND [COMPLETED] Saline lock IV, , , Once AND sodium chloride 0.9 % flush 10 mL, 10 mL, Intravenous, q12h AND sodium chloride 0.9 % flush 10 mL, 10 mL, Intravenous, PRN, Blayne Ordaz, Insert peripheral IV, , , Once AND Saline lock IV, , , Once AND sodium chloride 0.9 % flush10 mL, 10 mL, Intravenous, q12h, 10 mL at 06/26/25 1331 AND sodium chloride 0.9 % flush 10 mL, 10 mL, Intravenous, PRN, Maria Dolores Ontiveros, ADRI, DNP * Progress Notes - Juliane Rodriguez - 06/27/2025 8:14 AM EDT FAMILY MEDICINE Daily Progress Note Patient: Monika Ordaz 64 y.o. Subjective Monika Ordaz is a 64 y.o. female who was seen and evaluated on 06/27/2025. Currently on Hospital Day Hospital Day: 3. Overnight, patient did well. NPO sips with meds since midnight for procedure today. This AM: Patient reports diffuse abdominal pain that she rates a 4-5/10. She also reports that her LLQ pain has significantly improved. Other symptoms include diarrhea with Lactulose. She stays cold but denies increased fever or chills. Patient also denies nausea, vomiting, headache, and chest pain. She was concerned about her blood glucose due to previous hypoglycemic episodes. Denies lightheadedness and dizziness. Review of Systems Additional review of systems negative except per HPI. Objective Visit Vitals BP 112/53 (BP Location: Right arm, Patient Position: Lying) Pulse 64 Temp 37.1 ??C (98.8 ??F) (Axillary) Resp 17 Ht 1.651 m (5' 5 ) Wt 81.9 kg (180 lb 8.9 oz) SpO2 95% BMI 30.05 kg/m?? OB Status Postmenopausal Smoking Status Never BSA 1.94 m?? Physical Exam Constitutional: General: She is not in acute distress. Appearance: She is not ill-appearing. HENT: Head: Normocephalic and atraumatic. Right Ear: External ear normal. Left Ear: External ear normal. Nose: Nose normal. Mouth/Throat: Mouth: Mucous membranes are moist. Eyes: General: No scleral icterus. Extraocular Movements: Extraocular movements intact. Cardiovascular: Rate and Rhythm: Normal rate and regular rhythm. Pulses: Normal pulses. Radial pulses are 2+ on the right side and 2+ on the left side. Posterior tibial pulses are 2+ on the right side and 2+ on the left side. Pulmonary: Effort: Pulmonary effort is normal. Breath sounds: Normal breath sounds. Abdominal: General: Bowel sounds are decreased. There is distension. Palpations: There is fluid wave. Tenderness: There is abdominal tenderness (midline) in the left lower quadrant. There is no guarding or rebound. Musculoskeletal: Cervical back: Normal range of motion. Right lower leg: No edema. Left lower leg: No edema. Neurological: Mental Status: She is alert. Psychiatric: Mood and Affect: Mood normal. Behavior: Behavior normal. Labs and cultures: Reviewed and significant for glucose 139, BUN decreased to 31 (from 35 yesterday), Cr decreased to 1.95 (from 2.32 yesterday), AST 60, AlkPhos 215, T bili 1.8, Magnesium 1.5, WBC increased to 2.26, Hgb increased to 8.6, Plt stable at 38, Neutrophils increased to 0.98, cystatin C 3.12 (increased from 1.97). Imaging/diagnostic studies: No new imaging. Assessment/Plan Assessment: Monika Ordaz is a 64 y.o. female with PMH COPD, CKD stage 3b, CAD, T2DM with diabetic neuropathy, dysphagia, obesity, JONATHAN on BiPAP nightly, RA/SLE, HLD, cirrhosis with ascites, esophageal varices, portal HTN, IBS C/D admitted on 06/25/2025 for CARLOTTA, now on hospital day 3 requiring ongoing hospitalization for CARLOTTA in the setting of cirrhosis and progressing debility. Currently, the patient's condition is fair based on improved LLQ pain and Cr but continued need for paracentesis. Assessment & Plan Acute kidney injury superimposed on stage 3b chronic kidney disease (CMS/HCC) Chronic kidney disease, stage 3b (CMS/HCC) Cirrhosis of liver with ascites (CMS/HCC) Hx of spontaneous bacterial peritonitis Pleural effusion associated with hepatic disorder LLQ abdominal pain - MELD 3.0: 26 on 06/27 - MELD-Na: 25 on 06/27 - Creatinine 1.1-1.3 at baseline; 1.95 on 06/26 - Vitals stable; Vitals q4h - Daily CBC, Mg, and Phos labs ordered - HRS ruled out - Cystatin C 3.12; baseline 2 - No patient complaints of worsening SOB PLAN - Continue to trend creatinine on daily CMP - Reach back out to nephrology/hepatology if patient worsens - If creatinine trends up, can consider albumin challenge; per hepatology recs - IR completing paracentesis/thoracentesis today to keep consistent weekly schedule; will follow lab results - Continue home lactulose, rifaximin, and ciprofloxacin - Continue midodrine 10mg TID - Continue daily vit D 1000 U; 88914 U to be ordered on 06/30 if still admitted - Renally dose medications and avoid nephrotoxic agents Other neutropenia (CMS/HCC) Pancytopenia - WBC 2.26 (baseline 4.0) with 0.98 absolute neutrophils - RBC 2.83 (baseline 3.0), platelets 38 (baseline 55) PLAN - Continue to monitor at this time - Heparin q12h for DVT prophylaxis held for paracentesis; will resume after procedure - aPTT ordered to monitor heparin therapy Physical debility Self-care deficit - Patient reports poor PO intake in s/o large-volume ascites - Episode of severe debility the other day (couldn't use phone, had to go to neighbors for help) - Family involved in and amenable to discussion of placement; concerned for declining ability to perform ADLs PLAN - PT/OT recommended home health - Nutrition consulted; recs appreciated - [place] [facility] [place] Type 2 diabetes mellitus, with long-term current use of insulin ([facility]) Diabetic peripheral neuropathy ([facility]) - BG 245 on arrival; last POCT glucose 108 - Glargine 24 U daily + resistant SSI ordered on admission - Hypoglycemia precautions ordered due to reported hypoglycemia at home PLAN - Continue to monitor BG trends; if any concerns over the afternoon, will adjust regimen as necessary Dysphagia Heartburn - Chronic; advised to hold home omeprazole at most recent nephrology appointment due to concern forAKI PLAN - Continue to hold omeprazole - 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9) - Chronic; Complicates all aspects of care Hypomagnesemia - 1.6 on admission; 1.5 06/27 PLAN - Continue magnesium oxide 400 mg daily - Will recheck magnesium level today and replete if it remains low F: PO E: Monitor and replace as necessary N: NPO diet NPO except: Sips with meds GI: no PPI DVT prophylaxis: subcutaneous heparin, holding for procedure then will resume Lines and Tubes: pIV CODE: Full Code SOCIAL: Currently living with sister in [facility] PT/OT: consulted, appreciate recommendations Consultants: PT/OT, nutrition, nephrology, hepatology, IR Disposition: Medically Ready for Discharge:Anticipated in 2-4 Days [] Resolution of CARLOTTA [] Assisted living facility placement Juliane Rodriguez, MS4 Cosigned by Chilo Morales MD at 06/27/2025 3:08 PM EDT Associated attestation - Chilo Morales MD - 06/27/2025 3:08 PM EDT I saw and evaluated the patient with the medical student. I discussed the case with the medical student and agree with the findings and plan as documented. I personally performed the Exam and MedicalDecision Making. * Care Plan - Bia Carrillo - 06/26/2025 10:59 PM EDT Problem: Fall Injury Risk Goal: Absence of Fall and Fall-Related Injury Outcome: Ongoing, Progressing Intervention: Identify and Manage Contributors Flowsheets (Taken 06/26/20252029) Medication Review/Management: medications reviewed Self-Care Promotion: independence encouraged Intervention: Promote Injury-Free Environment Flowsheets (Taken 06/26/20252199) Safety Promotion/Fall Prevention: activity supervised assistive device/personal items within reach clutter-free environment maintained fall prevention program maintained lighting adjusted mobility aid in reach nonskid shoes/slippers when out of bed room organization consistent safety round/check completed toileting scheduled Problem: Skin Injury Risk Increased Goal: Skin Health and Integrity Outcome: Ongoing, Progressing Intervention: Optimize Skin Protection Flowsheets (Taken 06/26/20252029) Activity Management: ambulated in room Pressure Reduction Techniques: frequent weight shift encouraged Pressure Reduction Devices: positioning supports utilized Skin Protection: incontinence pads utilized Head of Bed (HOB) Positioning: HOB elevated Intervention: Promote and Optimize Oral Intake Flowsheets (Taken 06/26/20252029) Oral Nutrition Promotion: rest periods promoted Nutrition Interventions: frequent small meals provided Problem: Adult Inpatient Plan of Care Goal: Plan of Care Review Outcome: Ongoing, Progressing Flowsheets (Taken 06/26/20252256) Progress: improving Plan of Care Reviewed With: patient Goal: Patient-Specific Goal (Individualized) Outcome: Ongoing, Progressing Flowsheets (Taken 06/26/20252029) Patient/Family-Specific Goals (Include Timeframe): blood sugar will be monitored and kept at acceptable levels during shift Individualized Care Needs: monitor blood sugar Anxieties, Fears or Concerns: worried about hypoglycemia Goal: Absence of Hospital-Acquired Illness or Injury Outcome: Ongoing, Progressing Intervention: Identify and Manage Fall Risk Flowsheets (Taken 06/26/20252199) Safety Promotion/Fall Prevention: activity supervised assistive device/personal items within reach clutter-free environment maintained fall prevention program maintained lighting adjusted mobility aid in reach nonskid shoes/slippers when out of bed room organization consistent safety round/check completed toileting scheduled Intervention: Prevent Skin Injury Flowsheets (Taken 06/26/20252029) Body Position: weight shifting Skin Protection: incontinence pads utilized Intervention: Prevent and Manage VTE (Venous Thromboembolism) Risk Flowsheets (Taken 06/26/20252029) VTE Prevention/Management: previous patient education reinforced Intervention: Prevent Infection Flowsheets (Taken 06/26/20252029) Infection Prevention: rest/sleep promoted hand hygiene promoted Goal: Optimal Comfort and Wellbeing Outcome: Ongoing, Progressing Intervention: Monitor Pain and Promote Comfort Flowsheets (Taken 06/26/20252048) Pain Management Interventions: declines Intervention: Provide Person-Centered Care Flowsheets (Taken 06/26/20252029) Trust Relationship/Rapport: care explained choices provided Problem: Acute Kidney Injury/Impairment Goal: Fluid and Electrolyte Balance Outcome: Ongoing, Progressing Intervention: Monitor and Manage Fluid and Electrolyte Balance Flowsheets (Taken 06/26/20252256) Fluid/Electrolyte Management: fluids provided Goal: Improved Oral Intake Outcome: Ongoing, Progressing Intervention: Promote and Optimize Oral Intake Flowsheets (Taken 06/26/20252029) Oral Nutrition Promotion: rest periods promoted Nutrition Interventions: frequent small meals provided Goal: Effective Renal Function Outcome: Ongoing, Progressing Intervention: Monitor and Support Renal Function Flowsheets (Taken 06/26/20252029) Stabilization Measures: legs elevated Medication Review/Management: medications reviewed * Assessment & Plan Note - Chilo Morales MD - 06/26/2025 3:57 PM EDT Associated Problem(s): Acute kidney injury superimposed on stage 3b chronic kidney disease (CMS/HCC) (Resolved 07/07/2025) - MELD 3.0: 27 on 06/26 - MELD-Na: 25 on 06/26 - Creatinine 1.1-1.3 at baseline; 2.3 on 06/26 - Vitals stable; Vitals q4h - Daily CBC, Mg, and Phos labs ordered - Will complete workup to rule out HRS - Cystatin C ordered; baseline 2 - No patient complaints of worsening SOB PLAN - Continue to trend creatinine on daily CMP - Follow results of serum osmol, Urine P:C, urine urea nitrogen, and urine sodium - Nephrology consulted; agreed with current plan--if labs up-trend by tomorrow, call again and they'll come see the patient in person (Dr. Back--PGY5) - Consulted hepatology; recommended SBP labs with paracentesis - If creatinine trends up, can consider albumin challenge; per hepatology recs - Consulted IR for paracentesis/ thoracentesis; plan for 06/27 to keep consistent weekly schedule - Continue home lactulose, rifaximin, and ciprofloxacin - Titrated midodrine down from 20 to 10mg TID - Continue daily vit D 1000 U; 20611 U to be ordered on 06/30 if still admitted - Renally dose medications and avoid nephrotoxic agents * Assessment & Plan Note - Chilo Morales MD - 06/26/2025 3:57 PM EDT Associated Problem(s): Chronic kidney disease, stage 3b (CMS/HCC) - MELD 3.0: 27 on 06/26 - MELD-Na: 25 on 06/26 - Creatinine 1.1-1.3 at baseline; 2.3 on 06/26 - Vitals stable; Vitals q4h - Daily CBC, Mg, and Phos labs ordered - Will complete workup to rule out HRS - Cystatin C ordered; baseline 2 - No patient complaints of worsening SOB PLAN - Continue to trend creatinine on daily CMP - Follow results of serum osmol, Urine P:C, urine urea nitrogen, and urine sodium - Nephrology consulted; agreed with current plan--if labs up-trend by tomorrow, call again and they'll come see the patient in person (Dr. Back--PGY5) - Consulted hepatology; recommended SBP labs with paracentesis - If creatinine trends up, can consider albumin challenge; per hepatology recs - Consulted IR for paracentesis/ thoracentesis; plan for 06/27 to keep consistent weekly schedule - Continue home lactulose, rifaximin, and ciprofloxacin - Titrated midodrine down from 20 to 10mg TID - Continue daily vit D 1000 U; 29031 U to be ordered on 06/30 if still admitted - Renally dose medications and avoid nephrotoxic agents * Assessment & Plan Note - Chilo Morales MD - 06/26/2025 3:57 PM EDT Associated Problem(s): Cirrhosis of liver with ascites (CMS/HCC) - MELD 3.0: 27 on 06/26 - MELD-Na: 25 on 06/26 - Creatinine 1.1-1.3 at baseline; 2.3 on 06/26 - Vitals stable; Vitals q4h - Daily CBC, Mg, and Phos labs ordered - Will complete workup to rule out HRS - Cystatin C ordered; baseline 2 - No patient complaints of worsening SOB PLAN - Continue to trend creatinine on daily CMP - Follow results of serum osmol, Urine P:C, urine urea nitrogen, and urine sodium - Nephrology consulted; agreed with current plan--if labs up-trend by tomorrow, call again and they'll come see the patient in person (Dr. Back--PGY5) - Consulted hepatology; recommended SBP labs with paracentesis - If creatinine trends up, can consider albumin challenge; per hepatology recs - Consulted IR for paracentesis/ thoracentesis; plan for 06/27 to keep consistent weekly schedule - Continue home lactulose, rifaximin, and ciprofloxacin - Titrated midodrine down from 20 to 10mg TID - Continue daily vit D 1000 U; 80452 U to be ordered on 06/30 if still admitted - Renally dose medications and avoid nephrotoxic agents * Assessment & Plan Note - Chilo Morales MD - 06/26/2025 3:57 PM EDT Associated Problem(s): Hx of spontaneous bacterial peritonitis - MELD 3.0: 27 on 06/26 - MELD-Na: 25 on 06/26 - Creatinine 1.1-1.3 at baseline; 2.3 on 06/26 - Vitals stable; Vitals q4h - Daily CBC, Mg, and Phos labs ordered - Will complete workup to rule out HRS - Cystatin C ordered; baseline 2 - No patient complaints of worsening SOB PLAN - Continue to trend creatinine on daily CMP - Follow results of serum osmol, Urine P:C, urine urea nitrogen, and urine sodium - Nephrology consulted; agreed with current plan--if labs up-trend by tomorrow, call again and they'll come see the patient in person (Dr. Back--PGY5) - Consulted hepatology; recommended SBP labs with paracentesis - If creatinine trends up, can consider albumin challenge; per hepatology recs - Consulted IR for paracentesis/ thoracentesis; plan for 06/27 to keep consistent weekly schedule - Continue home lactulose, rifaximin, and ciprofloxacin - Titrated midodrine down from 20 to 10mg TID - Continue daily vit D 1000 U; 17144 U to be ordered on 06/30 if still admitted - Renally dose medications and avoid nephrotoxic agents * Assessment & Plan Note - Chilo Morales MD - 06/26/2025 3:57 PM EDT Associated Problem(s): Pleural effusion associated with hepatic disorder - MELD 3.0: 27 on 06/26 - MELD-Na: 25 on 06/26 - Creatinine 1.1-1.3 at baseline; 2.3 on 06/26 - Vitals stable; Vitals q4h - Daily CBC, Mg, and Phos labs ordered - Will complete workup to rule out HRS - Cystatin C ordered; baseline 2 - No patient complaints of worsening SOB PLAN - Continue to trend creatinine on daily CMP - Follow results of serum osmol, Urine P:C, urine urea nitrogen, and urine sodium - Nephrology consulted; agreed with current plan--if labs up-trend by tomorrow, call again and they'll come see the patient in person (Dr. Back--PGY5) - Consulted hepatology; recommended SBP labs with paracentesis - If creatinine trends up, can consider albumin challenge; per hepatology recs - Consulted IR for paracentesis/ thoracentesis; plan for 06/27 to keep consistent weekly schedule - Continue home lactulose, rifaximin, and ciprofloxacin - Titrated midodrine down from 20 to 10mg TID - Continue daily vit D 1000 U; 16884 U to be ordered on 06/30 if still admitted - Renally dose medications and avoid nephrotoxic agents * Assessment & Plan Note - Chilo Morales MD - 06/26/2025 3:57 PM EDT Associated Problem(s): LLQ abdominal pain (Resolved 07/09/2025) - MELD 3.0: 27 on 06/26 - MELD-Na: 25 on 06/26 - Creatinine 1.1-1.3 at baseline; 2.3 on 06/26 - Vitals stable; Vitals q4h - Daily CBC, Mg, and Phos labs ordered - Will complete workup to rule out HRS - Cystatin C ordered; baseline 2 - No patient complaints of worsening SOB PLAN - Continue to trend creatinine on daily CMP - Follow results of serum osmol, Urine P:C, urine urea nitrogen, and urine sodium - Nephrology consulted; agreed with current plan--if labs up-trend by tomorrow, call again and they'll come see the patient in person (Dr. Back--PGY5) - Consulted hepatology; recommended SBP labs with paracentesis - If creatinine trends up, can consider albumin challenge; per hepatology recs - Consulted IR for paracentesis/ thoracentesis; plan for 06/27 to keep consistent weekly schedule - Continue home lactulose, rifaximin, and ciprofloxacin - Titrated midodrine down from 20 to 10mg TID - Continue daily vit D 1000 U; 63384 U to be ordered on 06/30 if still admitted - Renally dose medications and avoid nephrotoxic agents * Assessment & Plan Note - Chilo Morales MD - 06/26/2025 3:57 PM EDT Associated Problem(s): Physical debility - Patient reports poor PO intake in s/o large-volume ascites - Episode of severe debility the other day (couldn't use phone, had to go to neighbors for help) - Family involved in and amenable to discussion of placement; concerned for declining ability to perform ADLs PLAN - PT/OT and nutrition consult ordered; recs appreciated - Nutrition consulted; recs appreciated - Consider increasing protein content in diet; awaiting nutrition recs - Plan to discuss JOHN vs long-term care with patient and family * Assessment & Plan Note - Chilo Morales MD - 06/26/2025 3:57 PM EDT Associated Problem(s): Self-care deficit - Patient reports poor PO intake in s/o large-volume ascites - Episode of severe debility the other day (couldn't use phone, had to go to neighbors for help) - Family involved in and amenable to discussion of placement; concerned for declining ability to perform ADLs PLAN - PT/OT and nutrition consult ordered; recs appreciated - Nutrition consulted; recs appreciated - Consider increasing protein content in diet; awaiting nutrition recs - Plan to discuss JOHN vs long-term care with patient and family * Assessment & Plan Note - Chilo Morales MD - 06/26/2025 3:57 PM EDT Associated Problem(s): Type 2 diabetes mellitus, with long-term current use of insulin ([facility]) - BG 245 on arrival; last POCT glucose 120 - Glargine 24 U daily + resistant SSI ordered on admission - Hypoglycemia precautions ordered due to reported hypoglycemia at home PLAN - Continue to monitor BG trends; if any concerns over the afternoon, will adjust regimen as necessary * Assessment & Plan Note - Chilo Morales MD - 06/26/2025 3:57 PM EDT Associated Problem(s): Diabetic peripheral neuropathy ([facility]) - BG 245 on arrival; last POCT glucose 120 - Glargine 24 U daily + resistant SSI ordered on admission - Hypoglycemia precautions ordered due to reported hypoglycemia at home PLAN - Continue to monitor BG trends; if any concerns over the afternoon, will adjust regimen as necessary * Assessment & Plan Note - Chilo Morales MD - 06/26/2025 3:57 PM EDT Associated Problem(s): Dysphagia - Chronic; advised to hold home omeprazole at most recent nephrology appointment due to concern forAKI PLAN - Continue to hold omeprazole - 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; appreciate recommendations * Assessment & Plan Note - Chilo Morales MD - 06/26/2025 3:57 PM EDT Associated Problem(s): Heartburn - Chronic; advised to hold home omeprazole at most recent nephrology appointment due to concern forAKI PLAN - Continue to hold omeprazole - 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; appreciate recommendations * Assessment & Plan Note - Chilo Morales MD - 06/26/2025 3:57 PM EDT Associated Problem(s): Chronic obstructive pulmonary disease (CMS/HCC) - Chronic; on BiPAP nightly at home - Sister is bringing home BiPAP this afternoon PLAN - Continue nightly BiPAP at 12/6 per RT recs; RT to adjust settings as appropriate * Assessment & Plan Note - Chilo Morales MD - 06/26/2025 3:57 PM EDT Associated Problem(s): JONATHAN treated with BiPAP - Chronic; on BiPAP nightly at home - Sister is bringing home BiPAP this afternoon PLAN - Continue nightly BiPAP at 12/6 per RT recs; RT to adjust settings as appropriate * Assessment & Plan Note - Chilo Morales MD - 06/26/2025 3:57 PM EDT Associated Problem(s): 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 ([facility]) - Chronic; Crestor discontinued at most recent nephrology appointment PLAN - Continue to hold Crestor * Assessment & Plan Note - Chilo Morales MD - 06/26/2025 3:57 PM EDT Associated Problem(s): Hyperlipidemia - Chronic; Crestor discontinued at most recent nephrology appointment PLAN - Continue to hold Crestor * Assessment & Plan Note - Chilo Morales MD - 06/26/2025 3:57 PM EDT Associated Problem(s): Obesity (BMI 30.0-34.9) (Resolved 07/09/2025) - Chronic; Complicates all aspects of care * Assessment & Plan Note - Chilo Morales MD - 06/26/2025 3:57 PM EDT Associated Problem(s): Neutropenia - WBC 1.89 (baseline 4.0) with 0.75 absolute neutrophils - RBC 2.75 (baseline 3.0), platelets 38 (baseline 55) PLAN - Continue to monitor at this time - Consider DVT prophylaxis * Assessment & Plan Note - Chilo Morales MD - 06/26/2025 3:57 PM EDT Associated Problem(s): Pancytopenia - WBC 1.89 (baseline 4.0) with 0.75 absolute neutrophils - RBC 2.75 (baseline 3.0), platelets 38 (baseline 55) PLAN - Continue to monitor at this time - Consider DVT prophylaxis * Assessment & Plan Note - Chilo Morales MD - 06/26/2025 3:57 PM EDT Associated Problem(s): Hypomagnesemia (Resolved 07/09/2025) - 1.6 on admission; 1.7 06/26 PLAN - Consider repletion if continues to downtrend * Consults - Shaniqua Mccurdy APRN - 06/26/2025 12:26 PM EDTAssociated Order(s): Inpatient Consult to Interventional Radiology Inpatient Consult to Interventional Radiology Consult performed by: Shaniqua Mccurdy APRN Consult ordered by: Chilo Morales MD Reason for consult: Ascites and hepatic hydrothorax 06/26/25 Patient: Monika Ordaz Date of : 1960[address]64 y.o. Date of Visit: June 26, 2025 Requesting Service: Chilo Morales MD Chief Complaint: Abnormal lab History of Present Illness: Monika Ordaz is a 64 y.o. 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 She is presenting to on 06/25/25from Nephrology clinic with concern for CARLOTTA and inability to care for self. Of note, we are familiar with Ms. Ordaz as we perform outpatient paracentesis/thoracentesis on her nearly weekly. Last one being on 06/20/25. Vitals POA: Temp 98.2??, pulse 65, RR 16, BP 121/61, SpO2 98% on room air. Lab work pertinent for CBC with leukopenia WBC 2.33, hemoglobin 9.3 around baseline (normocytic), platelet count 39 (lowest in recent history), PT/INR elevated, CMP with elevated BG 242, creatinine 2.5 on baseline 1.1-1.3, liver enzymes slightly elevated, T bili 2.1, Mag 1.6. CXR with moderate right pleural effusion. She was already scheduled with us as outpatient for thoracentesis and paracentesis on 06/27/25. We are consulted to perform inpatient. History and admission information obtained from chart review of primary and consulting teams notation , as well as speaking directly to consulting team. The following portions of the chart were reviewed this encounter and updated as appropriate: Review of Systems: 14 point ROS negative of symptoms except for listed above in HPI. Past Medical History Pertinent Negatives[1] Surgical History[2] Social History[3] Family History: Personally reviewed and noncontributory. Allergies[4] Objective: All laboratory, images, tracings, and vital sign data are personally reviewed unless otherwise noted. VITALS: Temp: [36 ??C (96.8 ??F)-36.9 ??C (98.5 ??F)] 36.7 ??C (98 ??F) Heart Rate: [59-66] 59 Resp: [16-18] 16 BP: (106-126)/(54-73) 119/67 FiO2 (%): [21 %] 21 % Weight: 79.8 kg (176 lb) Body mass index is 30.05 kg/m??. I & O SUMMARY No intake/output data recorded. I/O this shift: In: 694 [P.O.:694] Out: - MEDICATIONS: Current Medications[5] LABS (PAST 18Labs in last 18 hours) CBC WBC 1.89 (L) Hb 8.3 (L) Plt 38 (L) Hct 25.7 (L) INR ?? PTT ?? Anti-Xa ?? BMP Na 136 Cl 110 (H) BUN 35 (H) Glu 117 (H) K 4.2 Co2 17 (L) Cr 2.32 (H) Ca 8.9 Mg 1.7 (L) Phos 3.4 Lactate ?? LFT AST 64 (H) AlkPhos 189 (H) T Prot 5.9 (L) ALK 23 Bili 1.9 (H) Alb ?? D.Bili ?? HOURS) EXAM: GENERAL: No acute distress EYES: PERRL; No scleral icterus or conjunctivitis HENT: Atraumatic, normocephalic RESP/CHEST: Symmetric expansion; non labored. CARD: regular rate and rhythm Extremities: No edema, no cyanosis or clubbing. Pedal pulses palpable +2. GI: No organomegaly or masses. Soft, Nontender, nondistended. SKIN: No rash, sores, lesions or subcutaneous nodules. NEURO: Alert Radiographics/Diagnostics: Imaging personally reviewed and reviewed with attending. === 06/23/25 === CT [facility] OUTSIDE IMAGES === 06/25/25 === XR CHEST 1 VIEW - Narrative - CLINICAL INDICATION: hx of pleural effusion, SOA TECHNIQUE: XR CHEST 1 VIEW COMPARISON: 06/20/2025. FINDINGS: New medium-sized right pleural effusion. New right lower and middle lobe opacities. No pneumothorax. Decreased lung volumes with vascular crowding; cardiac silhouette and mediastinal contours are stable within these confines. - Impression - New medium-sized right pleural effusion. New right lower and middle lobe opacities may represent atelectasis, however superimposed infection cannot definitely be excluded. CRITICAL RESULT: No. COMMUNICATION: Per this written report. Drafted by Nory Singh MD on 06/25/2025 4:08 PM Final report signed by Nory Singh MD on 06/25/2025 4:12 PM Assessment & Plan: Decompensated cirrhosis, MASH Ascites Hepatic hydrothorax EV MELD 3.0: 27 at 06/26/2025 3:47 AM MELD-Na: 25 at 06/26/2025 3:47 AM Calculated from: Serum Creatinine: 2.32 mg/dL at 06/26/2025 3:47 AM Serum Sodium: 136 mmol/L at 06/26/2025 3:47 AM Total Bilirubin: 1.9 mg/dL at 06/26/2025 3:47 AM Serum Albumin: 2.8 g/dL at 06/26/2025 3:47 AM INR(ratio): 2 at 06/25/2025 3:00 PM Age at listin years Sex: Female at 06/26/2025 3:47 AM - HCC: No identified liver lesions on last imaging, 04/2025. AFP 4 = 05/07/25. 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 - HE: history of encephalopathy requiring intubation. Lactulose at home. - Ascites/hepatic hydrothorax: 7-10 days paracentesis/thoracentesis. - Personally reviewed paracentesis 06/20/25: 4.3L removed. - Personally reviewed thoracentesis 06/20/25: 1.4L removed. - Difficulty with titration of diuretics due to kidney function. - PTT ??, Plt 38 (L) - VSS, Afebrile CARLOTTA on CKD III -Creatinine 2.5 with baseline 1.1-1.3 -Nephrology following PLAN: - Will perform paracentesis and thoracentesis on 06/27/25 [will perform inpatient]. Of note, patient with CARLOTTA in regard to albumin administration. - Primary team to order any labs requested for analysis. - Please make NPO after midnight evening prior. - Hold anticoagulation. - Will consent prior to procedure. - Any questions with scheduling please call [phone] Thank you for allowing us to participate in the care of this patient. Shaniqua Mccurdy APRN Interventional Radiology [phone] [1] Past Medical History: Diagnosis Date ADHD (attention deficit hyperactivity disorder) Allergic Anxiety disorder, unspecified Anxiety Bleeding gums Blood in urine Cataract Chronic kidney disease Cirrhosis (CMS/HCC) Colon cancer screening 09/20/2019 Added automatically from request for surgery [id number] Coronary artery disease Depression 1995 Diabetes mellitus [...] 1979 BLADDER SURGERY N/A Bladder surgery from [facility] BREAST BIOPSY 2011 BREAST SURGERY 2010 BUNIONECTOMY Right CATARACT EXTRACTION Bilateral 2016 CHOLECYSTECTOMY 1979 ESOPHAGOGASTRODUODENOSCOPY HYSTERECTOMY N/A Hysterectomy from [facility] KNEE SURGERY Bilateral ORAL SURGERY N/A Oral surgery from [facility] OTHER SURGICAL HISTORY 2015 ROOT CANAL WISDOM TOOTH EXTRACTION [3] Social History Tobacco Use Smoking status: Never Passive exposure: Never Smokeless tobacco: Never Vaping Use Vaping status: Never Used Substance Use Topics Alcohol use: Not Currently Drug use: Never [4] No Known Allergies [5] Current Facility-Administered Medications: calcitriol (Rocaltrol) capsule 0.25 mcg, 0.25 mcg, Oral, Daily, Blayne Ordaz, , 0.25 mcg at 06/26/25 09 calcium carbonate (Tums) chewable tablet 750 mg, 750 mg, Oral, Daily, Blayne Ordaz DO, 750 mg at06/26/25 09 capsaicin (Zostrix) 0.025 % cream, , Topical, BID PRN, Blayne Ordaz DO cetirizine (ZyrTEC) tablet 10 mg, 10 mg, Oral, Daily, Blayne Ordaz, , 10 mg at 06/26/25914 cholecalciferol (Vitamin D-3) tablet 1,000 Units, 1,000 Units, Oral, Daily, Blayne Ordaz, , 1,000 Units at 06/26/25914 ciprofloxacin (Cipro) tablet 500 mg, 500 mg, Oral, Daily, Blayne Ordaz, , 500 mg at 06/26/25 09 glucose (Glutose) 40 % oral gel 15-30 grams of glucose, 15-30 grams of glucose, Sublingual, q15 minPRN OR dextrose 10 % (D10W) bolus 125 mL, 125 mL, Intravenous, q15 min PRN OR dextrose 10 %(D10W) bolus 250 mL, 250 mL, Intravenous, q15 min PRN OR glucagon (human recombinant) injection1 mg, 1 mg, Intramuscular, q15 min PRN, Blayne Ordaz DO fluticasone (Flonase) nasal spray 1 spray, 1 spray, Each Nostril, Daily, Blayne Ordaz DO heparin (porcine) injection 5,000 Units, 5,000 Units, Subcutaneous, q12h, Veronica Del Valle, insulin glargine-yfgn 100 UNIT/ML injection 24 Units, 24 Units, Subcutaneous, Daily, Blayne Ordaz DO, 24 Units at 06/26/25 09 insulin lispro (Admelog) 100 units/mL injection - Correction - Resistant Dose, 0-10 Units, Subcutaneous, TID with meals, Blayne Ordaz DO, 4 Units at 06/26/25 122 insulin lispro (Admelog) injection - Correction - Nighttime Dose, 0-3 Units, Subcutaneous, Twice atnight, Blayne Ordaz DO lactulose (Chronulac) 10 GM/15ML solution 20 g, 20 g, Oral, TID, Blayne Ordaz DO, 20 g at 06/26/25914 magnesium oxide (Mag-Ox) tablet 400 mg, 400 mg, Oral, Daily, Blayne Ordaz DO, 400 mg at 043 midodrine (Proamatine) tablet 10 mg, 10 mg, Oral, TID, Veronica Del Valle, DO rifAXIMin (Xifaxan) tablet 550 mg, 550 mg, Oral, BID, Blayne Ordaz DO, 550 mg at 06/26/25 09 [COMPLETED] Insert peripheral IV, , , Once AND [COMPLETED] Saline lock IV, , , Once AND sodium chloride 0.9 % flush 10 mL, 10 mL, Intravenous, q12h AND sodium chloride 0.9 % flush 10 mL, 10 mL, Intravenous, PRN, Blayne Ordaz S, DO Insert peripheral IV, , , Once AND Saline lock IV, , , Once AND sodium chloride 0.9 % flush10 mL, 10 mL, Intravenous, q12h AND sodium chloride 0.9 % flush 10 mL, 10 mL, Intravenous, PRN,Maria Dolores Ontiveros APRN, DNP * Care Plan - Loreto García RN - 06/26/2025 12:01 PM EDT Problem: Fall Injury Risk Goal: Absence of Fall and Fall-Related Injury Outcome: Ongoing, Progressing Problem: Skin Injury Risk Increased Goal: Skin Health and Integrity Outcome: Ongoing, Progressing Problem: Adult Inpatient Plan of Care Goal: Plan of Care Review Outcome: Ongoing, Progressing Flowsheets (Taken 06/26/2025 115) Progress: improving Outcome Evaluation: Patient will verbalize understanding and participate in plann of care this shift Plan of Care Reviewed With: patient Goal: Patient-Specific Goal (Individualized) Outcome: Ongoing, Progressing Flowsheets (Taken 06/26/2025799) Patient/Family-Specific Goals (Include Timeframe): Patient labs will be monitored and treated per order Individualized Care Needs: monitor labs Anxieties, Fears or Concerns: none stated Goal: Absence of Hospital-Acquired Illness or Injury Outcome: Ongoing, Progressing Intervention: Identify and Manage Fall Risk Flowsheets (Taken 06/26/2025799) Safety Promotion/Fall Prevention: activity supervised clutter-free environment maintained fall prevention program maintained nonskid shoes/slippers when out of bed safety round/check completed Intervention: Prevent Skin Injury Flowsheets Taken 06/26/2025 1159 Skin Protection: incontinence pads utilized Taken 06/26/2025799 Body Position: weight shifting Intervention: Prevent and Manage VTE (Venous Thromboembolism) Risk Flowsheets (Taken 06/26/2025 08) VTE Prevention/Management: SCDs (sequential compression devices) off Intervention: Prevent Infection Flowsheets (Taken 06/26/2025 1159) Infection Prevention: hand hygiene promoted rest/sleep promoted Goal: Optimal Comfort and Wellbeing Outcome: Ongoing, Progressing Intervention: Monitor Pain and Promote Comfort Flowsheets (Taken 06/26/2025 1159) Pain Management Interventions: pillow support provided position adjusted Intervention: Provide Person-Centered Care Flowsheets (Taken 06/26/2025 1159) Trust Relationship/Rapport: care explained choices provided emotional support provided empathic listening provided questions answered questions encouraged Problem: Acute Kidney Injury/Impairment Goal: Fluid and Electrolyte Balance Outcome: Ongoing, Progressing Intervention: Monitor and Manage Fluid and Electrolyte Balance Flowsheets (Taken 06/26/2025 1159) Fluid/Electrolyte Management: fluids provided Goal: Improved Oral Intake Outcome: Ongoing, Progressing Intervention: Promote and Optimize Oral Intake Flowsheets (Taken 06/26/2025 1159) Oral Nutrition Promotion: rest periods promoted Nutrition Interventions: frequent small meals provided Goal: Effective Renal Function Outcome: Ongoing, Progressing Intervention: Monitor and Support Renal Function Flowsheets (Taken 06/26/2025 1159) Stabilization Measures: legs elevated Medication Review/Management: medications reviewed * Progress Notes - Venessa Brown - 06/26/2025 11:47 AM EDT Case Management Adult Initial Progress Note Monika Ordaz 64 y.o. female CSN: [id number] Admission: 06/25/2025 2:14 PM Primary Problem: Acute kidney injury superimposed on stage 3b chronic kidney disease (CMS/HCC) Steward/Ste[employer] reviewed chart and spoke with patient at bedside to complete this Initial Case Management Assessment. Pt confirmed that her home address and PCP listed in [facility] is correct. Pt stated thatkizzy has been living with her sister in [place] since mid May. Pts mother also is currently staying with pts sister. PCP: Alvarez Ordaz MD Emergency Contact: Extended Emergency Contact Information Primary Emergency Contact: Viral Ordaz Mobile Relation: Son Preferred language: [place] Bench Assembler Battery needed? No Secondary Emergency Contact: Lj Bernal Mobile Relation: Sister Insurance: Primary Visit Coverage Payer Plan Sponsor Code Group Number Group Name HUMANA MEDICARE HUMANA MEDICARE [id number] [employer] Primary Visit Coverage Subscriber Subscriber ID Subscriber Name Subscriber SSN Subscriber Address [id number] MONIKA ORDAZ [id number] [id number] Secondary Visit Coverage Payer Plan Sponsor Code Group Number Group Name [place] TRADITION[place] Secondary Visit Coverage Subscriber Subscriber ID Subscriber Name Subscriber SSN Subscriber Address [id number] MONIKA ORDAZ [id number] [id number] Patient information: Primary Caregiver: Self Support System: Immediate family Daily Living Activities: Functional Status: Minimum assistance Living Arrangements: Family Type of Residence: Private residence [address] [address] Smoker in the Home?: No Current DME: Equipment Currently Used at Home: Bipap, walker, rollator Income Information: Income Source: Disabled Income/Expense Information: Expenses exceed income Current Resources Utilized: Food [place] Housing Circumstances-Z Codes: Housing Circumstances (select all that apply): Low Income (101-300% Federal Poverty Guidlines) - Z596 Anticipated Discharge Date: tBD Patient's Discharge Goal: Pt stated that she would like to go to rehab or [place] [facility] facility.Pt does not feel that her sister can care for her and she does not feel safe living on her own. Assistance Available at Discharge: Pt is currently living with her sister but usually lives alone in a trailer in [place] Discharge Transport: May need assistance Follow Up Transport: Sister or son Home Health / Home Infusion / Outpatient Dialysis Services: None reported Living Will/Advance Directive/Power of Iron Pourer /Guardian: Have you reviewed your Advance Directive and is it valid for this stay?: No Advance Directive: Patient would not like information Information Provided on Healthcare Directives: No Pre-existing DNR/DNI Order: No Patient Requests Assistance: No Pt was given the 5 Wishes workbook. Additional Comments: Pt uses the [facility] pharmacy for her medications. Venessa Brown * Consults - Medina Real RD - 06/26/2025 10:40 AM EDTAssociated Order(s): IP CONSULT TO NUTRITION SERVICES Adult Nutrition Evaluation Note Monika Ordaz 64 y.o. female CSN: [id number] Room/Bed 723/723A Nutrition evaluation type: assessment Reason for evaluation: provider consult Hospital course: 64y/o female admitted 06/25 for CARLOTTA on CKD and inability to care for herself. Past medical/ surgical history: Past Medical History[1] Surgical History[2] Social history: None, no uatsdin needs Additional comments: 06/26: RD visited pt at bedside. Pt endorsed that her appetite is hit or miss , which is baseline for her. She doesn't like eggs nor ground up meats. Added preferences to [employer]. She reported havingdifficulty chewing/swallowing occasionally, but was able to tolerate her breakfast. Stated she has diarrhea d/t taking lactulose. Reported weighing around 176# on admission and that she has lost 3-4#recently, but unable to provide a timeframe. Contributed weight loss to paracentesis. Pt doesn't like Boost nor Ensure. She doesn't take any vitamins/minerals at home. Diet Education Provided: Will monitor Vitals and Basic Assessment: BP: 119/67 Temp: 36.7 ??C (98 ??F) Oxygen Therapy: None (Room air) O2 Delivery Method: CPAP/Bi-PAP mask [place] Coma Scale Score: 15 Edd Scale Score: 17 +paracentesis/thoracentesis Skin: surgical wound on lower left abdomen (06/20/25) and surgical wound on right back (06/20/25) Allergies: NKFA Medications: Current Scheduled Medications[3] Current Continuous Medications[4] Current PRN Medications[5] Medications Ordered Prior to Encounter[6] Labs: Lab Results Component Value Date WBC 1.89 (L) 06/26/2025 HGB 8.3 (L) 06/26/2025 HCT 25.7 (L) 06/26/2025 MCV 94 06/26/2025 PLT 38 (L) 06/26/2025 Lab Results Component Value Date GLUCOSE 117 (H) 06/26/2025 CALCIUM 8.9 06/26/2025 NA 136 06/26/2025 K 4.2 06/26/2025 CO2 17 (L) 06/26/2025 CL 110 (H) 06/26/2025 BUN 35 (H) 06/26/2025 CREATININE 2.32 (H) 06/26/2025 PHOS 3.4 06/26/2025 MG 1.7 (L) 06/26/2025 HGBA1C 7.3 (H) 05/23/2025 EGFR 23.3 06/26/2025 -- POCT glucose of 81 - 245mg/dL (06/25 - 06/26) Lab Results Component Value Date ALT 23 06/26/2025 AST 64 (H) 06/26/2025 ALKPHOS 189 (H) 06/26/2025 BILITOT 1.9 (H) 06/26/2025 Anthropometrics: Height: 165.1 cm (5' 5 ) Weight: 81.9 kg (180 lb 8.9 oz) BMI (Calculated): 30.05 Weight Evaluation: Obese-Class 1 (BMI 30-34.9) [place] Body Weight (kg): 57 Percent [place] Body Weight: 144 Adjusted Body Weight (kg): 63 Wt Readings from Last 10 Encounters: 06/26/25 81.9 kg (180 lb 8.9 oz) 06/25/25 79.9 kg (176 lb 2.4 oz) 06/20/25 83.8 kg (184 lb 11.9 oz) 06/13/25 85.7 kg (188 lb 15 oz) 06/11/25 82 kg (180 lb 12.4 oz) 06/06/25 82.7 kg (182 lb 5.1 oz) 06/05/25 80.6 kg (177 lb 11.1 oz) 05/31/25 87.9 kg (193 lb 12.6 oz) 05/30/25 82.5 kg (181 lb 14.1 oz) 05/23/25 86.9 kg (191 lb 9.3 oz) Estimated Needs: Kcal/ K - 30 Kcal Provided: 1575 - 1890 Kcal Needs Based On: Adjusted weight (63kg) Gm Protein/ Kg : 1.2 - 1.5 Protein Provided: 76 - 95 Protein Needs Based On: Adjusted weight (63kg) Metabolic Cart Study Results: Current Nutrition Intake: Diet Supplements: None Diet Order: Adult Diet Diet Texture: Regular Adult Carbohydrate Restriction: Consistent CHO 3 (8070-1616 Deniz, 95 g/meal) Fat Restriction: Fat-free Electrolyte Restriction: Renal Percent Meals Eaten (%): 66% avg x 2 meals (06/26) Nutrition Focused Physical Exam: Physical exam performed on (date): 06/26 Temples (muscles): None Clavicle (muscle): Mild Shoulder (muscle): Mild Thigh (muscle): Mild Calf (muscle): Mild Orbital (fat): None Triceps (fat): Mild Assessment of Malnutrition: Malnutrition Identified: No Nutrition Problem: Inadequate energy intake related to self-care deficit as evidenced by inability to perform ADL, pt reported that her appetite is hit or miss , 66% avg x 2 meals (06/26). Status of Nutrition Diagnosis: New Nutrition Interventions and Recommendations: Adjusting to Regular, CC2, Renal diet Do not recommend Boost/Ensure supplements, because patient doesn't like them. Kitchen unable to accommodate high calorie/protein restriction with other diet restrictions (i.e., renal, consistent carb, etc.). Rec Nephrovite supplementation daily. Agree with calcium and vitamin D supplementation - rec taking separately from Nephrovite. Insulin regimen per MD Team. Nursing: Please document all PO intakes in I/Os in Flowsheets. Nutrition Monitoring and Goals: - Will monitor PO intake, weight status, lab results, GI tolerance, and skin integrity - Pt will tolerate >75% avg of meal intakes - Blood Glucose <200mg/dl during admission Acuity Level: 1 Medina Real, RD, LD, MS [1] Past Medical History: Diagnosis Date ADHD (attention deficit hyperactivity disorder) Allergic Anxiety disorder, unspecified Anxiety Bleeding gums Blood in urine Cataract Chronic kidney disease Cirrhosis (CMS/HCC) Colon cancer screening 09/20/2019 Added automatically from request for surgery [id number] Coronary artery disease Depression 1996 Diabetes mellitus [...] 1979 BLADDER SURGERY N/A Bladder surgery from [facility] BREAST BIOPSY 2010 BREAST SURGERY 2010 BUNIONECTOMY Right CATARACT EXTRACTION Bilateral 2016 CHOLECYSTECTOMY 1979 ESOPHAGOGASTRODUODENOSCOPY HYSTERECTOMY N/A Hysterectomy from [facility] KNEE SURGERY Bilateral ORAL SURGERY N/A Oral surgery from [facility] OTHER SURGICAL HISTORY 2014 ROOT CANAL WISDOM TOOTH EXTRACTION [3] calcitriol, 0.25 mcg, Oral, Daily calcium carbonate, 750 mg, Oral, Daily cetirizine, 10 mg, Oral, Daily cholecalciferol, 1,000 Units, Oral, Daily ciprofloxacin, 500 mg, Oral, Daily fluticasone, 1 spray, Each Nostril, Daily heparin (porcine), 5,000 Units, Subcutaneous, q12h insulin glargine-yfgn, 24 Units, Subcutaneous, Daily insulin lispro, 0-10 Units, Subcutaneous, TID with meals insulin lispro, 0-3 Units, Subcutaneous, Twice at night lactulose, 20 g, Oral, TID magnesium oxide, 400 mg, Oral, Daily midodrine, 10 mg, Oral, TID rifAXIMin, 550 mg, Oral, BID sodium chloride, 10 mL, Intravenous, q12h sodium chloride, 10 mL, Intravenous, q12h [4] [5] PRN medications: capsaicin, glucose OR dextrose 10 % OR dextrose 10 % OR glucagon (human recombinant), [COMPLETED] Insert peripheral IV AND [COMPLETED] Saline lock IV AND sodium chloride AND sodium chloride, Insert peripheral IV AND Saline lock IV AND sodium chloride AND sodium chloride [6] No current facility-administered medications on file prior to encounter. Current Outpatient Medications on File Prior to Encounter Medication Sig Dispense Refill Abaloparatide (Tymlos) 3120 MCG/1.56ML solution pen-injector Inject 80 mcg under the skin daily. 1.56 mL 2 calcitriol (Rocaltrol) 0.25 MCG capsule Take 1 capsule by mouth daily. 30 capsule 0 calcium carbonate EX (Tums E-X) 750 MG chewable tablet Chew 1 tablet (750 mg) 1 (one) time each day. capsaicin (Zostrix-HP) 0.075 % topical cream Apply 1 Application topically daily as needed (Leg andfoot cramps). cetirizine (ZyrTEC) 10 MG tablet Take 1 tablet by mouth daily. 30 tablet 2 cholecalciferol (Vitamin D-3) 25 MCG (1000 UT) tablet Take 1 tablet by mouth daily. 90 tablet 2 ciprofloxacin (Cipro) 500 MG tablet Take 1 tablet by mouth daily. 90 tablet 1 ergocalciferol (Vitamin D-2) 1.25 MG (58176 UT) capsule Take 1 capsule by mouth 1 time per week. 8 capsule 3 insulin aspart (NovoLOG) 100 UNIT/ML injection vial Inject 20 Units under the skin 3 times a day before meals. Plus 4 units for every 50 > 150 MDD 80 units insulin glargine (Lantus SoloStar) 100 UNIT/ML injection pen Inject 48 Units under the skin every morning. lactulose (Chronulac) 10 GM/15ML solution Take 30 mL by mouth 3 times a day. 2700 mL 11 Magnesium Oxide, Laxative, 500 MG tablet Take 1 tablet by mouth daily. 90 tablet 3 midodrine (Proamatine) 5 MG tablet Take 2 tablets by mouth 3 times a day. Multiple Vitamins-Minerals (COMPLETE WOMENS PO) Take 1 tablet by mouth in the morning. prochlorperazine (Compazine) 5 MG tablet Take 1 tablet by mouth every 8 hours as needed for nausea or vomiting. 60 tablet 2 rifAXIMin (Xifaxan) 550 MG tablet Take 1 tablet by mouth 2 times a day. 60 tablet 11 zinc sulfate (Zincate) 220 (50 Zn) MG capsule Take 1 capsule by mouth in the morning and 1 capsule before bedtime. 60 capsule 2 [DISCONTINUED] capsaicin (Zostrix) 0.025 % cream Apply thin layer to feet nightly WITH GLOVES 56.6 g 1 [DISCONTINUED] midodrine (Proamatine) 10 MG tablet Take 2 tablets by mouth 3 times a day. 180 tablet 3 [place] 0.6 MG/0.6ML solution auto-injector Inject 0.6 mg under the skin 1 time as needed (for extreme hypoglycemia) for up to 1 dose. 0.6 mL 2 [DISCONTINUED] azelastine (Astelin) 0.1 % nasal spray Administer 1 spray into each nostril 2 times a day. Use in each nostril as directed (Patient not taking: Reported on 06/25/2025) 30 mL 12 [DISCONTINUED] B-D UF III MINI PEN NEEDLES 31G X 5 MM misc [DISCONTINUED] B-D ULTRAFINE III SHORT PEN 31G X 8 MM misc (Patient not taking: Reported on 06/25/2025) [DISCONTINUED] Blood Glucose Monitoring Suppl (Blood Glucose Monitor System) w/Device kit Test blood sugars twice a day. Dx E11.65 1 kit 0 [DISCONTINUED] fluticasone (Flonase) 50 MCG/ACT nasal spray Administer 1 spray into each nostril daily. Shake gently. Before first use, prime pump. After use, clean tip and replace cap. (Patient not taking: Reported on 06/25/2025) 16 g 0 [DISCONTINUED] glucose blood test strip Use to test blood sugars twice a day E11.65 100 each 1 [DISCONTINUED] insulin aspart (NovoLOG Flexpen) 100 UNIT/ML injection Inject 24 units before meals,12 units before small meals/snacks plus 4 units for every 50 > 150. MDD: 100 units [DISCONTINUED] Insulin Pen Needle 31G X 6 MM misc 1 each daily. Use to administer Tymlos daily 100 each 11 [DISCONTINUED] Lancets misc Use to test blood sugars twice a day E11.65 100 each 1 [DISCONTINUED] Lantus SoloStar 100 UNIT/ML injection pen Inject 52 units every morning. Titrate as directed. MDD: 60 units [DISCONTINUED] omeprazole (PriLOSEC) [address] capsule Take 1 capsule by mouth 2 times a day. Do notcrush or chew. (Patient not taking: Reported on 06/25/2025) 60 capsule 1 [DISCONTINUED] ondansetron ODT (Zofran-ODT) 8 MG disintegrating tablet Dissolve 1 tablet on the tongue every 8 hours as needed for nausea or vomiting. 30 tablet 1 [DISCONTINUED] pen needle, diabetic (BD Pen Needle Micro U/F) 32G X 6 MM misc Use to inject insulin4 times per day. 400 each 3 [DISCONTINUED] rosuvastatin (Crestor) 20 MG tablet Take 1 tablet by mouth nightly. (Patient not taking: Reported on 06/25/2025) 90 tablet 2 * Progress Notes - Yahir Fraser - 06/26/2025 10:29 AM EDT Occupational Therapy Evaluation/Discharge Patient Name: Monika Ordaz Today's Date: 06/26/2025 OT Discharge Recommendations: Home with 24 hour assistance, Home health PT, Home health OT Equipment Recommended: Patient owns appropriate equipment History Monika Ordaz is 64 y.o. female admitted 06/25/2025 for work-up of Acute kidney injury superimposed on stage 3b chronic kidney disease ([facility]). Problem List Active Hospital Problems Diagnosis Date Noted Other neutropenia ([facility]) 06/26/2025 Pancytopenia 06/26/2025 Hypomagnesemia 06/26/2025 Pleural effusion associated with hepatic disorder 06/25/2025 LLQ abdominal pain 06/25/2025 Self-care deficit 06/25/2025 CARLOTTA (acute kidney injury) ([facility]) 06/25/2025 Hx of spontaneous bacterial peritonitis 03/01/2025 Acute kidney injury superimposed on stage 3b chronic kidney disease ([facility]) 10/14/2024 Type 2 diabetes mellitus, with long-term current use of insulin ([facility]) 01/11/2024 Cirrhosis of liver with ascites ([facility]) 11/30/2022 Hyperlipidemia 07/17/2021 Obesity (BMI 30.0-34.9) 06/27/2020 JONATHAN treated with BiPAP 12/03/2019 Heartburn 08/02/2019 Chronic kidney disease, stage 3b ([facility]) 08/24/2018 Physical debility 08/24/2018 Chronic obstructive pulmonary disease ([facility]) 08/22/2018 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 ([facility]) 08/22/2018 Dysphagia 05/17/2018 Diabetic peripheral neuropathy ([facility]) 01/07/2017 Procedures Past Medical History Patient has a past medical history of ADHD (attention deficit hyperactivity disorder), Allergic, Anxiety disorder, unspecified, Bleeding gums, Blood in urine, Cataract, Chronic kidney disease, Cirrhosis ([facility]/HCC), Colon cancer screening (09/20/2019), Coronary artery disease, Depression (1995), Diabetes mellitus type 2 in obese (04/22/2015), Diabetic nephropathy ([facility]), Dry mouth, GERD (gastroesophageal reflux disease), Headache, Heart murmur, HL (hearing loss), Hypoparathyroidism, Inflammatory bowel disease, Irritable bowel syndrome, Jaw pain, Obesity, Osteoporosis, Peptic ulceration, Personal history of other diseases of the digestive system, Personal history of other diseases of the digestive system, Personal history of other diseases of the nervous system and sense organs, Personal history of other endocrine, nutritional and metabolic disease, Personal history of other mental and behavioral disorders, Personal history of urinary (tract) infections, Pre-liver transplant, listed, Pure hypercholesterolemia, unspecified, Sleep apnea, Thyroid condition, Type 2 diabetes mellitus, Unspecified asthma, uncomplicated, and Unspecified osteoarthritis, unspecified site. Past Surgical History Patient has a past surgical history that includes Knee surgery (Bilateral); oral surgery (N/A); Hysterectomy (N/A); Bladder surgery (N/A); Appendectomy (1979); Cholecystectomy (1979); Breast biopsy (2010); Cataract extraction (Bilateral, 2016); Bunionectomy (Right); Esophagogastroduodenoscopy; Other surgical history (2014); [place] tooth extraction; Breast surgery (2009); and Root canal. Precautions Medical Precautions: Fall precautions Subjective Pt agreeable to OT eval. Participants in Care Family/Caregiver Present: No Bench Assembler Battery: Not Applicable Presentation Oxygen Therapy: None (Room air) Lines and Tubes: Intravenous access Pre-Session: Supine, Head of bed elevated, Bed alarm, Lines intact Pre-Session Comments: RN gave consent to session. Post-Session: Sitting in chair, Chair alarm, Lines intact, Call light in reach, RN notified Post-Session Comments: All needs met and within reach, left in care of NCT. Home Living/Set-up Lives With: Sister Home Type: House (Sister's home) Home Adaptive Equipment: Rollator, Rolling walker, Cane Home Layout: One level (Ramp to enter plus threshold step) Bathroom: Tub/Shower: Walk-in shower (suction cup grab bar) Bathroom: Toilet: Tall Bathroom: Accessibility: Accessible Home Living Comments: Pt reports that her sister discourages her from using rollator so she doesn't depend on it so she furniture walks through home as a result. Prior Level of Function Receives Help From: (Sister) Level of Mobility: Ambulatory- community Mobility [place]: Independent gait with device History of Falls: No ADL Performance: Independent Patient/Family Goals Statement Pt would like to go to rehab before returning home Objective Pain No complaints of pain Delirium Screening RASS: Alert and calm Confusion Assessment Method-ICU (CAM-ICU/PCAM-ICU) Feature 3: Altered Level of Consciousness: Negative Cognition Overall Cognitive Status: Within Functional Limits Arousal/Alertness: Appropriate responses to stimuli Mood/Behavior: Alert Orientation Level: Oriented X4 Single Step Commands: Consistently Multi-Step Commands: Consistently Method of Communication: Verbal Right Upper Extremity Examination RUE ROM Assessment RUE Assessment: Within Functional Limits Manual Muscle Testing - RUE: Within functional limits Left Upper Extremity Examination LUE ROM Assessment LUE Assessment: Within Functional Limits Manual Muscle Testing - LUE: Within functional limits Right Lower Extremity Examination RLE ROM Assessment RLE Assessment: Within Functional Limits Manual Muscle Testing - RLE: Within functional limits Sensation Light Touch: Right Lower Extremity: Mild impairment (N/T in foot (pt reports neuropathy at baseline)) Left Lower Extremity Examination LLE ROM Assessment LLE Assessment: Within Functional Limits Manual Muscle Testing: Within functional limits Sensation Light Touch: Left Lower Extremity: Mild impairment (N/T in foot (pt reports neuropathy at baseline)) Bed Mobility Bed Mobility Exam: Scooting/Bridging Level of [place]: Stand-by assist Physical/Nonphysical Assist: Supervision Assistive Device: Bed rails Bed Mobility Exam: Supine to Sit Level of [place]: Stand-by assist Physical/Nonphysical Assist: Supervision, HOB elevated Assistive Device: Bed rails Transfers Transfer Exam: Sit to stand Level of [place]: Contact guard Physical/Nonphysical Assist: Supervision, Verbal Cues, Minimal cues Assistive Device: Rollator Transfer Exam: Stand to Sit Level of [place]: Stand-by assist Physical/Nonphysical Assist: Supervision, Verbal Cues, Minimal cues Assistive Device: Rollator Transfer Exam: Bed to Chair/Chair to Bed Level of [place]: Contact guard Physical/Nonphysical Assist: Supervision, Verbal Cues, Minimal cues Assistive Device: Rollator Toilet Transfer Level of [place]: Stand-by assist Physical/Nonphysical Assist: Supervision, Verbal Cues, Minimal cues Type of Transfer: Ambulation, To toilet Assistive Device: (No Device) Self-Care Interventions Self Care/Home Management (ADLs) Time Entry: 70 Self-Care Interventions: Pt seen to complete her ADL's and functional mobility tasks for increased safety and IND. OT provided room setup for safety and line management in order to promote a safe environment. Pt required min cues for safety and use of rollator. Grooming Grooming Level of Assistance: Independent, Setup Grooming Where Assessed: Standing sinkside Grooming Interventions: Pt completed hand hygiene, washing her face and brushing her teeth while standing at sink side with SBA. Pt required cues for bathroom safety, hand placement, and pacing herself. Pt was encouraged to use her rollator at all times for increased safety. UE Dressing UE Dressing Level of Assistance: Independent UE Dressing Where Assessed: Edge of bed UE Dressing Interventions: to manage her gown Lower Extremity Dressing Sock Level of Assistance: Close supervision, Setup LE Dressing Where Assessed: Edge of bed LE Dressing Interventions: Cues for technique to don bilateral socks Toileting Toileting Level of Assistance: SBA, Setup Where Assessed: Toilet Standardized Assessments [facility] 6-Click Daily Activities Help from Other: Don/Doff Regular Lower Body Clothings: None Help From Other: Bathing: None Help From Other: Toileting: None Help From Other: Don/Doff Upper Body Clothings: None Help From Other: Grooming: None Help From Other: Eating Meals: None [facility] 6 Click - Daily Activities Score: 24 Assessment Pt demonstrated the ability to complete all her ADL's with SBA-IND. Pt was SBA for all functional transfers using her rollator and CGA without AD. Pt does not required further skilled OT services butwould benefit from HH OT/PT for increased safety and IND within her home. OT Findings: Barriers to Discharge: Comorbidities Eval Complexity Occupational Profile: Expanded review of medical/therapy records and additional review of physical,cognitive, or psychosocial history Clinical Decision Making: Low Overall Eval complexity: Low OT Recommendations Discharge Destination: Home with 24 hour assistance, Home health PT, Home health OT Discharge Equipment: Patient owns appropriate equipment Plan Patient no longer demonstrates need for inpatient occupational therapy services. Patient to be discharged from occupational therapy. Written by Yahir Fraser on 06/26/25 at 2:31 PM. * Progress Notes - Fredy Otero - 06/26/2025 10:28 AM EDT Physical Therapy Evaluation/Discharge Patient Name: Monika Ordaz Today's Date: 06/26/2025 PT Discharge Recommendations: Home with 24 hour assistance, Home health PT, Home health OT Equipment Recommended: Patient owns appropriate equipment History Monika Ordaz is 64 y.o. female admitted 06/25/2025 for work-up of Acute kidney injury superimposed on stage 3b chronic kidney disease ([facility]). Problem List Active Hospital Problems Diagnosis Date Noted Other neutropenia ([facility]) 06/26/2025 Pancytopenia 06/26/2025 Hypomagnesemia 06/26/2025 Pleural effusion associated with hepatic disorder 06/25/2025 LLQ abdominal pain 06/25/2025 Self-care deficit 06/25/2025 CARLOTTA (acute kidney injury) ([facility]) 06/25/2025 Hx of spontaneous bacterial peritonitis 03/01/2025 Acute kidney injury superimposed on stage 3b chronic kidney disease ([facility]) 10/14/2024 Type 2 diabetes mellitus, with long-term current use of insulin ([facility]) 01/11/2024 Cirrhosis of liver with ascites ([facility]) 11/30/2022 Hyperlipidemia 07/17/2021 Obesity (BMI 30.0-34.9) 06/27/2020 JONATHAN treated with BiPAP 12/03/2019 Heartburn 08/02/2019 Chronic kidney disease, stage 3b ([facility]) 08/24/2018 Physical debility 08/24/2018 Chronic obstructive pulmonary disease ([facility]) 08/22/2018 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 ([facility]) 08/22/2018 Dysphagia 05/17/2018 Diabetic peripheral neuropathy ([facility]) 01/07/2017 Procedures Past Medical History Patient has a past medical history of ADHD (attention deficit hyperactivity disorder), Allergic, Anxiety disorder, unspecified, Bleeding gums, Blood in urine, Cataract, Chronic kidney disease, Cirrhosis ([facility]), Colon cancer screening (09/20/2019), Coronary artery disease, Depression (1995), Diabetes mellitus type 2 in obese (04/22/2015), Diabetic nephropathy ([facility]), Dry mouth, GERD (gastroesophageal reflux disease), Headache, Heart murmur, HL (hearing loss), Hypoparathyroidism, Inflammatory bowel disease, Irritable bowel syndrome, Jaw pain, Obesity, Osteoporosis, Peptic ulceration, Personal history of other diseases of the digestive system, Personal history of other diseases of the digestive system, Personal history of other diseases of the nervous system and sense organs, Personal history of other endocrine, nutritional and metabolic disease, Personal history of other mental and behavioral disorders, Personal history of urinary (tract) infections, Pre-liver transplant, listed, Pure hypercholesterolemia, unspecified, Sleep apnea, Thyroid condition, Type 2 diabetes mellitus, Unspecified asthma, uncomplicated, and Unspecified osteoarthritis, unspecified site. Past Surgical History Patient has a past surgical history that includes Knee surgery (Bilateral); oral surgery (N/A); Hysterectomy (N/A); Bladder surgery (N/A); Appendectomy (1979); Cholecystectomy (1979); Breast biopsy (2010); Cataract extraction (Bilateral, 2016); Bunionectomy (Right); Esophagogastroduodenoscopy; Other surgical history (2014); [place] tooth extraction; Breast surgery (2009); and Root canal. Precautions Medical Precautions: Fall precautions Subjective Pt agreeable to participating in session. Participants in Care Family/Caregiver Present: No Bench Assembler Battery: Not Applicable Presentation Oxygen Therapy: None (Room air) Lines and Tubes: Intravenous access Pre-Session: Supine, Head of bed elevated, Bed alarm, Lines intact Pre-Session Comments: RN gave consent to session. Post-Session: Sitting in chair, Chair alarm, Lines intact, Call light in reach, RN notified Post-Session Comments: All needs met and within reach, left in care of NCT. Home Living/Set-up Lives With: Sister Home Type: House (Sister's home) Home Adaptive Equipment: Rollator, Rolling walker, Cane Home Layout: One level (Ramp to enter plus threshold step) Bathroom: Tub/Shower: Walk-in shower (suction cup grab bar) Bathroom: Toilet: Tall Bathroom: Accessibility: Accessible Home Living Comments: Pt reports that her sister discourages her from using rollator so she doesn't depend on it so she furniture walks through home as a result. Prior Level of Function Receives Help From: (Sister) Level of Mobility: Ambulatory- community Mobility [place]: Independent gait with device History of Falls: No ADL Performance: Independent Patient/Family Goals Objective Pain No pain reported. Delirium Screening RASS: Alert and calm Confusion Assessment Method-ICU (CAM-ICU/PCAM-ICU) Feature 3: Altered Level of Consciousness: Negative Cognition Overall Cognitive Status: Within Functional Limits Arousal/Alertness: Appropriate responses to stimuli Mood/Behavior: Alert Orientation Level: Oriented X4 Single Step Commands: Consistently Multi-Step Commands: Consistently Method of Communication: Verbal Right Upper Extremity Examination RUE Assessment: Within Functional Limits Manual Muscle Testing - RUE: Within functional limits Left Upper Extremity Examination LUE ROM Assessment LUE Assessment: Within Functional Limits Manual Muscle Testing - LUE Manual Muscle Testing - LUE: Within functional limits Right Lower Extremity Examination RLE ROM Assessment RLE Assessment: Within Functional Limits Manual Muscle Testing - RLE Manual Muscle Testing - RLE: Within functional limits Sensation Light Touch: Right Lower Extremity: Mild impairment (N/T in foot (pt reports neuropathy at baseline)) Left Lower Extremity Examination LLE Assessment: Within Functional Limits Manual Muscle Testing: Within functional limits Sensation Light Touch: Left Lower Extremity: Mild impairment (N/T in foot (pt reports neuropathy at baseline)) Bed Mobility Bed Mobility Exam: Scooting/Bridging Level of [place]: Stand-by assist Physical/Nonphysical Assist: Supervision Assistive Device: Bed rails Bed Mobility Exam: Supine to Sit Level of [place]: Stand-by assist Physical/Nonphysical Assist: Supervision, HOB elevated Assistive Device: Bed rails Transfers Transfer Exam: Sit to stand Level of [place]: Contact guard Physical/Nonphysical Assist: Supervision, Verbal Cues, Minimal cues Assistive Device: Rollator Transfer Exam: Stand to Sit Level of [place]: Stand-by assist Physical/Nonphysical Assist: Supervision, Verbal Cues, Minimal cues Assistive Device: Rollator Toilet Transfer Level of [place]: Stand-by assist Physical/Nonphysical Assist: Supervision Type of Transfer: Ambulation, To toilet Assistive Device: (No device) Balance Static Sitting Balance Static Sitting-Balance Support: Right upper extremity support, Left upper extremity support, Feet supported Static Sitting-Level of Assistance: Supervision Dynamic Sitting Balance Dynamic Sitting-Balance Support: Right upper extremity support, Left upper extremity support, Feet supported Dynamic Sitting-Balance: Lateral weight shifts, Anterior/Posterior weight shifts Level of Assistance: Supervision Static Standing Balance Static Standing-Balance Support: Right upper extremity support, Left upper extremity support Static Standing-Level of Assistance: Standby assist Dynamic Standing Balance Dynamic Standing-Balance Support: Right upper extremity support, Left upper extremity support Dynamic Standing-Balance: Lateral weight shifts, Anterior/Posterior weight shifts Dynamic Standing Level of Assistance: Standby assist Therapeutic Activity (16 minutes) Cueing provided for safe hand placement and LE positioning prior to performing transfers from EOB, rollator, and toilet. Pt tolerated 6 minutes of static/dynamic standing activity for inc LE weight acceptance and standing tolerance. Education provided regarding PT POC and discharge recommendations. Explanation provided that current recommendation is for pt to amb using rollator if discharged homeas she appears mildly unsteady when amb without device and she does not require RW as this would provide greater support/restriction than is currently needed. Pt verbalized her understanding. Gait Training (30 minutes) Device: Rollator, No device Assistance: Standby assist, Contact guard assist Distance: 300' (rollator), 40' (No device) Gait Analysis: Amb in hallway with rollator and SBA, amb chair<>bathroom without device with CGA for safety. Mildly decreased gait speed and rogers with rollator. Wide LISSETT, staggering gait pattern, intermittently reaching for wall for support when amb short distance without AD. No overt LOB noted throughout. Gait Training Interventions: Cueing for rollator management (engaging lock/unlock mechanism when sitting), upright posture, increased gait speed and rogesr. Therapeutic Exercise (23 minutes) Pt performed the following LE exercises for improved strength and ROM: Ankle pumps 20x Quad sets 10x LAQ 15x Seated Hip ABD/ADD 8x Heel slides (supine) 10x PT provided cueing to facilitate proper form and reduce compensation via accessory muscle groups. Pt required multiple seated rest breaks to promote recovery and reduce excess fatigue. Standardized Assessments Standardized Assessments Standardized Assessments: AMPAC 6-Clicks Mobility Assessment AMPA 6-Clicks Mobility Assessment Difficulty patient has turning over in bed (including adjusting bedclothes, sheets, and blankets)?:None Difficulty patient has sitting down on and standing up from a chair with arms (wheelchair, bedside commode, etc.)?: None Difficulty patient has moving from lying on back to sitting on the side of the bed?: None How much help does the patient need moving to and from a bed to a chair (including a wheelchair)?: None How much help does the patient need to walk in hospital room?: None How much help does the patient need climbing 3-5 steps with a railing?: A little [facility] 6-Clicks Mobility Assessment Total : 23 No data recorded Assessment Pt participated in initial PT evaluation this date and demonstrated the ability to perform all mobility including bed mobility, transfers, and amb (>250ft) with standby assist for safety. Pt wouldbenefit from 24 hour assistance at discharge as she stated she does not feel safe living alone at this time. Explanation provided to pt that it is recommended that should she discharge home it is safe st to use rollator when amb. Pt had previously reported that her sister discouraged use of rollatorso she did not have to depend on it , however, pt appeared mildly unsteady and reached for styles for support when amb short distance in room without assistive device. Encouraged pt to continue amb with nursing staff and RW as often as possible while admitted to reduce unwanted deconditioning, pt verbalized her understanding. Pt does not currently require skilled PT while IP as she appears to be at or near her functional baseline, PT will sign off. Impairments: Decreased strength, Impaired balance, Impaired functional mobility/transfers, Impairedgait dynamics/performance Activity Limitations: Inability to transfer independently, Inability to complete ADLs independently Participation Restrictions: Self-care, Home management Activity Tolerance: Standing, Walking Diagnosis: Impaired functional mobility Rehab Potential: Good, to achieve stated therapy goals Eval Complexity History Profile: 3 or more personal factors and/or comorbidities Clinical Presentation: Stable and/or uncomplicated characteristics Clinical Decision Making: Low complexity PT Recommendations Discharge Destination: Home with 24 hour assistance, Home health PT, Home health OT Discharge Equipment: Patient owns appropriate equipment Plan Patient no longer demonstrates need for inpatient physical therapy services. Patient to be discharged from physical therapy. Written by Fredy Otero on 06/26/25 at 1:17 PM. * Progress Notes - Veronica Del Valle DO - 06/26/2025 6:13 AM EDT FAMILY MEDICINE Daily Progress Note Patient: Monika Ordaz 64 y.o. Subjective Monika Janet Ordaz is a 64 y.o. female who was seen and evaluated on 06/26/2025. Currently on Hospital Day Hospital Day: 2. NAEON. No concerns from Nursing. This AM: Patient states she does not feel any better or worse from yesterday. Patient continues to have LLQ pain, but states that it has decreased from 7-8 to 4 today. Patient states she does not normally urinate much and wears adult diapers at home. Patient also states she that does not eat/drink very much, due to discomfort with her abdominal ascites and general anxiety related to her dysphagia. Denies chest pain, SOB, palpitations, nausea/vomiting, fevers/chills. Review of Systems Additional review of systems negative except per HPI. Objective Visit Vitals BP 119/67 Pulse 59 Temp 36.7 ??C (98 ??F) Resp 16 Ht 1.651 m (5' 5 ) Wt 81.9 kg (180 lb 8.9 oz) SpO2 95% BMI 30.05 kg/m?? OB Status Postmenopausal Smoking Status Never BSA 1.94 m?? Physical Exam Constitutional: General: She is not in acute distress. Appearance: Normal appearance. She is not ill-appearing. HENT: Head: Normocephalic and atraumatic. Comments: Missing some lower teeth Eyes: General: No scleral icterus. Conjunctiva/sclera: Conjunctivae normal. Cardiovascular: Rate and Rhythm: Normal rate and regular rhythm. Pulses: Normal pulses. Heart sounds: Murmur (Mild, left upper sternal border) heard. Pulmonary: Effort: Pulmonary effort is normal. No respiratory distress. Breath sounds: No wheezing. Chest: Chest wall: No tenderness. Abdominal: General: There is distension. Tenderness: There is abdominal tenderness (Tenderness to light palpation in LLQ, to deep palpation globally). There is no guarding or rebound. Comments: Fluid wave present, no caput medusae noted Musculoskeletal: General: No swelling, deformity or signs of injury. Left lower leg: No edema. Skin: General: Skin is warm. Capillary Refill: Capillary refill takes less than 2 seconds. Coloration: Skin is not jaundiced. Findings: No erythema. Comments: Pigmentation changes in feet b/l Neurological: General: No focal deficit present. Mental Status: She is alert and oriented to person, place, and time. Psychiatric: Mood and Affect: Mood normal. Behavior: Behavior normal. Thought Content: Thought content normal. Labs and cultures: Reviewed and significant for decreased RBC of 2.75, WBC of 1.89 with absolute neutrophils of 0.75, H&H of 8.3/25.7 (decreased from yesterday, at 9.3/28.0), platelets 38 (decreased from 68, 1 week previous). Last glucose 117. Creatinine 2.32 (baseline 1.0-1.3) PT/INR on 06/25 was elevated, 22.3 and 2.0. Imaging/diagnostic studies: Reviewed and significant for CXR 06/25 showing new medium-sized right plural effusion, new right lower/middle lobe opacities; atelectasis vs superimposed infection Assessment/Plan Assessment: Monika Ordaz is a 64 y.o. female with PMH COPD, CKD stage 3b, CAD, T2DM with diabetic neuropathy, dysphagia, obesity, JONATHAN on BiPAP nightly, RA/SLE, HLD, cirrhosis with ascites, esophageal varices, portal HTN, IBS C/D, admitted on 06/25/2025 for CARLOTTA, now on hospital day 2 requiring ongoing hospitalization for CARLOTTA in the setting of cirrhosis and progressing debility. Currently, the patient's condition is fair based on improvement of LLQ pain, continued need for paracentesis, continued CARLOTTA with improving creatinine and LFTs. Assessment & Plan Acute kidney injury superimposed on stage 3b chronic kidney disease (CMS/HCC) Chronic kidney disease, stage 3b (CMS/HCC) Cirrhosis of liver with ascites (CMS/HCC) Hx of spontaneous bacterial peritonitis Pleural effusion associated with hepatic disorder LLQ abdominal pain - MELD 3.0: 27 on 06/26 - MELD-Na: 25 on 06/26 - Creatinine 1.1-1.3 at baseline; 2.3 on 06/26 - Vitals stable; Vitals q4h - Daily CBC, Mg, and Phos labs ordered - Will complete workup to rule out HRS - Cystatin C ordered; baseline 2 - No patient complaints of worsening SOB PLAN - Continue to trend creatinine on daily CMP - Follow results of serum osmol, Urine P:C, urine urea nitrogen, and urine sodium - Nephrology consulted; agreed with current plan--if labs up-trend by tomorrow, call again and they'll come see the patient in person (Dr. Back--PGY5) - Consulted hepatology; recommended SBP labs with paracentesis - If creatinine trends up, can consider albumin challenge; per hepatology recs - Consulted IR for paracentesis/ thoracentesis; plan for 06/27 to keep consistent weekly schedule - Continue home lactulose, rifaximin, and ciprofloxacin - Titrated midodrine down from 20 to 10mg TID - Continue daily vit D 1000 U; [id number] U to be ordered on 06/30 if still admitted - Renally dose medications and avoid nephrotoxic agents Other neutropenia ([facility]/HCC) Pancytopenia - WBC 1.89 (baseline 4.0) with 0.75 absolute neutrophils - RBC 2.75 (baseline 3.0), platelets 38 (baseline 55) PLAN - Continue to monitor at this time - Consider DVT prophylaxis Physical debility Self-care deficit - Patient reports poor PO intake in s/o large-volume ascites - Episode of severe debility the other day (couldn't use phone, had to go to neighbors for help) - Family involved in and amenable to discussion of placement; concerned for declining ability to perform ADLs PLAN - PT/OT and nutrition consult ordered; recs appreciated - Nutrition consulted; recs appreciated - Consider increasing protein content in diet; awaiting nutrition recs - Plan to discuss JOHN vs long-term care with patient and family Type 2 diabetes mellitus, with long-term current use of insulin ([facility]/HCC) Diabetic peripheral neuropathy ([facility]/HCC) - BG 245 on arrival; last POCT glucose 120 - Glargine 24 U daily + resistant SSI ordered on admission - Hypoglycemia precautions ordered due to reported hypoglycemia at home PLAN - Continue to monitor BG trends; if any concerns over the afternoon, will adjust regimen as necessary Dysphagia Heartburn - Chronic; advised to hold home omeprazole at most recent nephrology appointment due to concern forAKI PLAN - Continue to hold omeprazole - 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; appreciate recommendations Chronic obstructive pulmonary disease ([facility]/HCC) JONATHAN treated with BiPAP - Chronic; on BiPAP nightly at home - Sister is bringing home BiPAP this afternoon PLAN - Continue nightly BiPAP at 12/6 per RT recs; RT to adjust settings as appropriate 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 ([facility]/HCC) Hyperlipidemia - Chronic; Crestor discontinued at most recent nephrology appointment PLAN - Continue to hold Crestor Obesity (BMI 30.0-34.9) - Chronic; Complicates all aspects of care Hypomagnesemia - 1.6 on admission; 1.7 06/26 PLAN - Consider repletion if continues to downtrend F: PO E: Monitor and replace as necessary N: Adult diet Diet texture: Regular; Carbohydrate restriction: Consistent Carb 3 (95 gm max/meal); Sodium restriction: 2,000 mg Na; Fat restriction: Fat-Free; Electrolyte Restriction: Renal GI: no PPI DVT prophylaxis: SCDs Lines and Tubes: pIV CODE: Full Code SOCIAL: Currently living with sister in [facility] PT/OT: consulted, appreciate recommendations Consultants: PT/OT, nutrition, nephro, hepato, IR Disposition: Medically Ready for Discharge: Anticipated in 2-4 Days [] Resolution of CARLOTTA [] PT/OT recommendations for placement Veronica Del Valle DO, Family Medicine, PGY-1 [facility] Cosigned by Chilo Morales MD at 06/26/2025 3:57 PM EDT Associated attestation - Chilo Morales MD - 06/26/2025 3:57 PM EDT I saw and evaluated the patient with the resident/fellow. I discussed the case with the resident/fellow and agree with the findings and plan as documented. Lower concern for HRS at this time, will monitor closely given comorbid conditions and treat if indicated. Added subcutaneous heparin q12h in setting of thrombocytopenia for DVT prophylaxis, will hold for paracentesis/thoracentesis tomorrow. * Assessment & Plan Note - Blayne Ordaz DO - 06/26/2025 2:33 AM EDTAssociated Problem(s): Acute kidney injury superimposed on stage 3b chronic kidney disease (CMS/HCC) (Resolved 07/07/2025) MELD 3.0: 31 at 06/25/2025 3:00 PM MELD-Na: 28 at 06/25/2025 3:00 PM Calculated from: Serum Creatinine: 2.5 mg/dL at 06/25/2025 3:00 PM Serum Sodium: 132 mmol/L at 06/25/2025 3:00 PM Total Bilirubin: 2.1 mg/dL at 06/25/2025 3:00 PM Serum Albumin: 3 g/dL at 06/25/2025 3:00 PM INR(ratio): 2 at 06/25/2025 3:00 PM Age at listin years Sex: Female at 06/25/2025 3:00 PM - Creatinine 1.1-1.3 at baseline; 2.5 on arrival in the ED - Vitals stable on arrival - Undergoes paracentesis +/- thoracentesis routinely with IR on - Etiology at this time uncertain; will complete workup to rule out HRS - Currently takes lactulose 30 g three times a day and rifaximin 550 mg BID; reports 2-3 BM per day - Takes ciprofloxacin 500 mg daily for SBP prophylaxis; EKG shows QTc 450 - Takes midrodine 20 mg TID for BP support; BP stable on arrival - Followed by CKD-[facility] clinic; takes abaloparatide 80 mcg subcutaneous daily, calcitriol 0.25 mg daily, Vit D 1000 U daily and 39435 U weekly (Sundays) PLAN: - Admitted to acute under attending Dr. Morales for further workup - Trend creatinine on daily CMP - Daily CBC, Mg, and Phos labs ordered - Serum osmol, Urine P:C, and urine sodium ordered for further workup - Nephrology and hepatology consult in the AM - Consult IR for paracentesis in the AM; plan for 06/27 to keep consistent weekly schedule - Vitals q4h - Continue home lactulose, rifaximin, midrodine and ciprofloxacin - Continue daily vit D 1000 U; 58521 U to be ordered on 06/30 if still admitted - Renally dose medications and avoid nephrotoxic agents * Assessment & Plan Note - Blayne Ordaz DO - 06/26/2025 2:33 AM EDTAssociated Problem(s): Chronic kidney disease, stage 3b (CMS/HCC) MELD 3.0: 31 at 06/25/2025 3:00 PM MELD-Na: 28 at 06/25/2025 3:00 PM Calculated from: Serum Creatinine: 2.5 mg/dL at 06/25/2025 3:00 PM Serum Sodium: 132 mmol/L at 06/25/2025 3:00 PM Total Bilirubin: 2.1 mg/dL at 06/25/2025 3:00 PM Serum Albumin: 3 g/dL at 06/25/2025 3:00 PM INR(ratio): 2 at 06/25/2025 3:00 PM Age at listin years Sex: Female at 06/25/2025 3:00 PM - Creatinine 1.1-1.3 at baseline; 2.5 on arrival in the ED - Vitals stable on arrival - Undergoes paracentesis +/- thoracentesis routinely with IR on - Etiology at this time uncertain; will complete workup to rule out HRS - Currently takes lactulose 30 g three times a day and rifaximin 550 mg BID; reports 2-3 BM per day - Takes ciprofloxacin 500 mg daily for SBP prophylaxis; EKG shows QTc 450 - Takes midrodine 20 mg TID for BP support; BP stable on arrival - Followed by CKD-MBD clinic; takes abaloparatide 80 mcg subcutaneous daily, calcitriol 0.25 mg daily, Vit D 1000 U daily and [id number] U weekly (Sundays) PLAN: - Admitted to acute under attending Dr. Morales for further workup - Trend creatinine on daily CMP - Daily CBC, Mg, and Phos labs ordered - Serum osmol, Urine P:C, and urine sodium ordered for further workup - Nephrology and hepatology consult in the AM - Consult IR for paracentesis in the AM; plan for 06/27 to keep consistent weekly schedule - Vitals q4h - Continue home lactulose, rifaximin, midrodine and ciprofloxacin - Continue daily vit D 1000 U; 24437 U to be ordered on 06/30 if still admitted - Renally dose medications and avoid nephrotoxic agents * Assessment & Plan Note - Blayne Ordaz DO - 06/26/2025 2:33 AM EDTAssociated Problem(s): Cirrhosis of liver with ascites (CMS/HCC) MELD 3.0: 31 at 06/25/2025 3:00 PM MELD-Na: 28 at 06/25/2025 3:00 PM Calculated from: Serum Creatinine: 2.5 mg/dL at 06/25/2025 3:00 PM Serum Sodium: 132 mmol/L at 06/25/2025 3:00 PM Total Bilirubin: 2.1 mg/dL at 06/25/2025 3:00 PM Serum Albumin: 3 g/dL at 06/25/2025 3:00 PM INR(ratio): 2 at 06/25/2025 3:00 PM Age at listin years Sex: Female at 06/25/2025 3:00 PM - Creatinine 1.1-1.3 at baseline; 2.5 on arrival in the ED - Vitals stable on arrival - Undergoes paracentesis +/- thoracentesis routinely with IR on - Etiology at this time uncertain; will complete workup to rule out HRS - Currently takes lactulose 30 g three times a day and rifaximin 550 mg BID; reports 2-3 BM per day - Takes ciprofloxacin 500 mg daily for SBP prophylaxis; EKG shows QTc 450 - Takes midrodine 20 mg TID for BP support; BP stable on arrival - Followed by CKD-MBD clinic; takes abaloparatide 80 mcg subcutaneous daily, calcitriol 0.25 mg daily, Vit D 1000 U daily and 19812 U weekly (Sundays) PLAN: - Admitted to acute under attending Dr. Morales for further workup - Trend creatinine on daily CMP - Daily CBC, Mg, and Phos labs ordered - Serum osmol, Urine P:C, and urine sodium ordered for further workup - Nephrology and hepatology consult in the AM - Consult IR for paracentesis in the AM; plan for 06/27 to keep consistent weekly schedule - Vitals q4h - Continue home lactulose, rifaximin, midrodine and ciprofloxacin - Continue daily vit D 1000 U; 69530 U to be ordered on 06/30 if still admitted - Renally dose medications and avoid nephrotoxic agents * Assessment & Plan Note - Blayne Ordaz DO - 06/26/2025 2:33 AM EDTAssociated Problem(s): Hx of spontaneous bacterial peritonitis MELD 3.0: 31 at 06/25/2025 3:00 PM MELD-Na: 28 at 06/25/2025 3:00 PM Calculated from: Serum Creatinine: 2.5 mg/dL at 06/25/2025 3:00 PM Serum Sodium: 132 mmol/L at 06/25/2025 3:00 PM Total Bilirubin: 2.1 mg/dL at 06/25/2025 3:00 PM Serum Albumin: 3 g/dL at 06/25/2025 3:00 PM INR(ratio): 2 at 06/25/2025 3:00 PM Age at listin years Sex: Female at 06/25/2025 3:00 PM - Creatinine 1.1-1.3 at baseline; 2.5 on arrival in the ED - Vitals stable on arrival - Undergoes paracentesis +/- thoracentesis routinely with IR on - Etiology at this time uncertain; will complete workup to rule out HRS - Currently takes lactulose 30 g three times a day and rifaximin 550 mg BID; reports 2-3 BM per day - Takes ciprofloxacin 500 mg daily for SBP prophylaxis; EKG shows QTc 450 - Takes midrodine 20 mg TID for BP support; BP stable on arrival - Followed by CKD-MBD clinic; takes abaloparatide 80 mcg subcutaneous daily, calcitriol 0.25 mg daily, Vit D 1000 U daily and 59592 U weekly (Sundays) PLAN: - Admitted to acute under attending Dr. Morales for further workup - Trend creatinine on daily CMP - Daily CBC, Mg, and Phos labs ordered - Serum osmol, Urine P:C, and urine sodium ordered for further workup - Nephrology and hepatology consult in the AM - Consult IR for paracentesis in the AM; plan for 06/27 to keep consistent weekly schedule - Vitals q4h - Continue home lactulose, rifaximin, midrodine and ciprofloxacin - Continue daily vit D 1000 U; 48940 U to be ordered on 06/30 if still admitted - Renally dose medications and avoid nephrotoxic agents * Assessment & Plan Note - Blayne Ordaz DO - 06/26/2025 2:33 AM EDTAssociated Problem(s): Pleural effusion associated with hepatic disorder MELD 3.0: 31 at 06/25/2025 3:00 PM MELD-Na: 28 at 06/25/2025 3:00 PM Calculated from: Serum Creatinine: 2.5 mg/dL at 06/25/2025 3:00 PM Serum Sodium: 132 mmol/L at 06/25/2025 3:00 PM Total Bilirubin: 2.1 mg/dL at 06/25/2025 3:00 PM Serum Albumin: 3 g/dL at 06/25/2025 3:00 PM INR(ratio): 2 at 06/25/2025 3:00 PM Age at listin years Sex: Female at 06/25/2025 3:00 PM - Creatinine 1.1-1.3 at baseline; 2.5 on arrival in the ED - Vitals stable on arrival - Undergoes paracentesis +/- thoracentesis routinely with IR on - Etiology at this time uncertain; will complete workup to rule out HRS - Currently takes lactulose 30 g three times a day and rifaximin 550 mg BID; reports 2-3 BM per day - Takes ciprofloxacin 500 mg daily for SBP prophylaxis; EKG shows QTc 450 - Takes midrodine 20 mg TID for BP support; BP stable on arrival - Followed by CKD-MBD clinic; takes abaloparatide 80 mcg subcutaneous daily, calcitriol 0.25 mg daily, Vit D 1000 U daily and 00754 U weekly (Sundays) PLAN: - Admitted to acute under attending Dr. Morales for further workup - Trend creatinine on daily CMP - Daily CBC, Mg, and Phos labs ordered - Serum osmol, Urine P:C, and urine sodium ordered for further workup - Nephrology and hepatology consult in the AM - Consult IR for paracentesis in the AM; plan for 06/27 to keep consistent weekly schedule - Vitals q4h - Continue home lactulose, rifaximin, midrodine and ciprofloxacin - Continue daily vit D 1000 U; 39860 U to be ordered on 06/30 if still admitted - Renally dose medications and avoid nephrotoxic agents * Assessment & Plan Note - Blayne Ordaz DO - 06/26/2025 2:33 AM EDTAssociated Problem(s): LLQ abdominal pain (Resolved 07/09/2025) MELD 3.0: 31 at 06/25/2025 3:00 PM MELD-Na: 28 at 06/25/2025 3:00 PM Calculated from: Serum Creatinine: 2.5 mg/dL at 06/25/2025 3:00 PM Serum Sodium: 132 mmol/L at 06/25/2025 3:00 PM Total Bilirubin: 2.1 mg/dL at 06/25/2025 3:00 PM Serum Albumin: 3 g/dL at 06/25/2025 3:00 PM INR(ratio): 2 at 06/25/2025 3:00 PM Age at listin years Sex: Female at 06/25/2025 3:00 PM - Creatinine 1.1-1.3 at baseline; 2.5 on arrival in the ED - Vitals stable on arrival - Undergoes paracentesis +/- thoracentesis routinely with IR on - Etiology at this time uncertain; will complete workup to rule out HRS - Currently takes lactulose 30 g three times a day and rifaximin 550 mg BID; reports 2-3 BM per day - Takes ciprofloxacin 500 mg daily for SBP prophylaxis; EKG shows QTc 450 - Takes midrodine 20 mg TID for BP support; BP stable on arrival - Followed by CKD-MBD clinic; takes abaloparatide 80 mcg subcutaneous daily, calcitriol 0.25 mg daily, Vit D 1000 U daily and 29244 U weekly (Sundays) PLAN: - Admitted to acute under attending Dr. Maguet for further workup - Trend creatinine on daily CMP - Daily CBC, Mg, and Phos labs ordered - Serum osmol, Urine P:C, and urine sodium ordered for further workup - Nephrology and hepatology consult in the AM - Consult IR for paracentesis in the AM; plan for 06/27 to keep consistent weekly schedule - Vitals q4h - Continue home lactulose, rifaximin, midrodine and ciprofloxacin - Continue daily vit D 1000 U; 16232 U to be ordered on 06/30 if still admitted - Renally dose medications and avoid nephrotoxic agents * Assessment & Plan Note - Blayne Ordaz DO - 06/26/2025 2:33 AM EDTAssociated Problem(s): Dysphagia Advised to hold omeprazole at most recent nephrology appointment due to CARLOTTA; continue to hold * Assessment & Plan Note - Blayne Ordaz DO - 06/26/2025 2:33 AM EDTAssociated Problem(s): Heartburn Advised to hold omeprazole at most recent nephrology appointment due to CARLOTTA; continue to hold * Assessment & Plan Note - Blayne Ordaz DO - 06/26/2025 2:33 AM EDTAssociated Problem(s): Chronic obstructive pulmonary disease (CMS/HCC) Continue nightly BiPAP at 12/6 per RT recs; RT to adjust settings as appropriate * Assessment & Plan Note - Blayne Ordaz DO - 06/26/2025 2:33 AM EDTAssociated Problem(s): JONATHAN treated with BiPAP Continue nightly BiPAP at 12/6 per RT recs; RT to adjust settings as appropriate * Assessment & Plan Note - Blayne Ordaz DO - 06/26/2025 2:33 AM EDTAssociated Problem(s): 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 (CMS/HCC) Crestor discontinued at most recent nephrology appointment; continue to hold * Assessment & Plan Note - Blayne Ordaz DO - 06/26/2025 2:33 AM EDTAssociated Problem(s): Hyperlipidemia Crestor discontinued at most recent nephrology appointment; continue to hold * Assessment & Plan Note - Blayne Ordaz DO - 06/26/2025 2:33 AM EDTAssociated Problem(s): Obesity (BMI 30.0-34.9) (Resolved 07/09/2025) Complicates all aspects of care * Care Plan - Bia Carrillo - 06/26/2025 2:27 AM EDT Problem: Fall Injury Risk Goal: Absence of Fall and Fall-Related Injury 06/26/2025 0224 by Bia Carrillo Outcome: Ongoing, Progressing 06/26/2025 0129 by Bia Carrillo Outcome: Ongoing, Progressing Intervention: Identify and Manage Contributors Flowsheets (Taken 06/26/2025 0000) Medication Review/Management: medications reviewed Self-Care Promotion: independence encouraged Intervention: Promote Injury-Free Environment Flowsheets (Taken 06/26/2025 0200) Safety Promotion/Fall Prevention: activity supervised assistive device/personal items within reach clutter-free environment maintained fall prevention program maintained lighting adjusted mobility aid in reach nonskid shoes/slippers when out of bed room organization consistent safety round/check completed toileting scheduled Problem: Skin Injury Risk Increased Goal: Skin Health and Integrity 06/26/2025223 by Bia Carrillo Outcome: Ongoing, Progressing 06/26/2025128 by Bia Carrillo Outcome: Ongoing, Progressing Intervention: Optimize Skin Protection Flowsheets Taken 06/26/2025 Pressure Reduction Techniques: frequent weight shift encouraged Pressure Reduction Devices: positioning supports utilized Skin Protection: incontinence pads utilized Taken 06/25/20252014 Activity Management: activity adjusted per tolerance Head of Bed (HOB) Positioning: HOB elevated Intervention: Promote and Optimize Oral Intake Flowsheets (Taken 06/26/2025) Oral Nutrition Promotion: rest periods promoted Nutrition Interventions: frequent small meals provided Problem: Adult Inpatient Plan of Care Goal: Plan of Care Review 06/26/2025223 by Bia Carrillo Outcome: Ongoing, Progressing Flowsheets (Taken 06/26/2025223) Progress: improving Plan of Care Reviewed With: patient 06/26/2025128 by Bia Carrillo Outcome: Ongoing, Progressing Flowsheets (Taken 06/26/2025128) Progress: improving Plan of Care Reviewed With: patient Goal: Patient-Specific Goal (Individualized) 06/26/2025223 by Bia Carrillo Outcome: Ongoing, Progressing Flowsheets (Taken 06/25/20252014) Patient/Family-Specific Goals (Include Timeframe): pt will remain free from falls and injury duringshift Individualized Care Needs: safety Anxieties, Fears or Concerns: none stated 06/26/2025128 by Bia Carrillo Outcome: Ongoing, Progressing Goal: Absence of Hospital-Acquired Illness or Injury 06/26/2025223 by Bia Carrillo Outcome: Ongoing, Progressing 06/26/2025128 by Bia Carrillo Outcome: Ongoing, Progressing Intervention: Identify and Manage Fall Risk Flowsheets (Taken 06/26/2025 0200) Safety Promotion/Fall Prevention: activity supervised assistive device/personal items within reach clutter-free environment maintained fall prevention program maintained lighting adjusted mobility aid in reach nonskid shoes/slippers when out of bed room organization consistent safety round/check completed toileting scheduled Intervention: Prevent Skin Injury Flowsheets Taken 06/26/2025 Skin Protection: incontinence pads utilized Taken 06/25/20252014 Body Position: weight shifting Intervention: Prevent and Manage VTE (Venous Thromboembolism) Risk Flowsheets (Taken 06/26/2025) VTE Prevention/Management: previous patient education reinforced Intervention: Prevent Infection Flowsheets (Taken 06/26/2025) Infection Prevention: rest/sleep promoted hand hygiene promoted Goal: Optimal Comfort and Wellbeing 06/26/2025223 by Bia Carrillo Outcome: Ongoing, Progressing 06/26/2025128 by Bia Carrillo Outcome: Ongoing, Progressing Intervention: Monitor Pain and Promote Comfort Flowsheets (Taken 06/26/2025) Pain Management Interventions: declines Intervention: Provide Person-Centered Care Flowsheets (Taken 06/26/2025) Trust Relationship/Rapport: care explained choices provided Problem: Acute Kidney Injury/Impairment Goal: Fluid and Electrolyte Balance Outcome: Ongoing, Progressing Intervention: Monitor and Manage Fluid and Electrolyte Balance Flowsheets (Taken 06/26/2025 0224) Fluid/Electrolyte Management: fluids provided Goal: Improved Oral Intake Outcome: Ongoing, Progressing Intervention: Promote and Optimize Oral Intake Flowsheets (Taken 06/26/2025) Oral Nutrition Promotion: rest periods promoted Nutrition Interventions: frequent small meals provided Goal: Effective Renal Function Outcome: Ongoing, Progressing Intervention: Monitor and Support Renal Function Flowsheets Taken 06/26/2025 0224 Stabilization Measures: legs elevated Taken 06/26/2025 Medication Review/Management: medications reviewed * Assessment & Plan Note - Blayne Ordaz DO - 06/25/2025 10:50 PM EDT Associated Problem(s): Physical debility - Per family, transplant surgery requesting patient to be mostly independent with ADLs prior to transplant consideration - Patient reports poor PO intake due to persistent large volume ascites requiring weekly paracentesis - Family requesting help with care; would like to discuss inpatient facility, has had home health in the past PLAN: - PT/OT and nutrition consult ordered; recs appreciated * Assessment & Plan Note - Blayne Ordaz DO - 06/25/2025 10:50 PM EDT Associated Problem(s): Self-care deficit - Per family, transplant surgery requesting patient to be mostly independent with ADLs prior to transplant consideration - Patient reports poor PO intake due to persistent large volume ascites requiring weekly paracentesis - Family requesting help with care; would like to discuss inpatient facility, has had home health in the past PLAN: - PT/OT and nutrition consult ordered; recs appreciated * Assessment & Plan Note - Blayne Ordaz DO - 06/25/2025 10:50 PM EDT Associated Problem(s): Type 2 diabetes mellitus, with long-term current use of insulin ([facility]) - Takes glargine 48 U daily and aspart 24 U TID w/meals + 12 U before small meals/snacks - Correction factor of 4:50>150 with aspart - BG 245 on arrival - Per patient and family, she has had episodes of profound hypoglycemia recently; reports as low asin the 50s PLAN: - Glargine 24 U daily + resistant SSI ordered on admission - Hypoglycemia precautions ordered due to reported hypoglycemia at home - Continue to monitor BG trends; adjust regimen as necessary * Assessment & Plan Note - Blayne Ordaz DO - 06/25/2025 10:50 PM EDT Associated Problem(s): Diabetic peripheral neuropathy (CMS/HCC) - Takes glargine 48 U daily and aspart 24 U TID w/meals + 12 U before small meals/snacks - Correction factor of 4:50>150 with aspart - BG 245 on arrival - Per patient and family, she has had episodes of profound hypoglycemia recently; reports as low asin the 50s PLAN: - Glargine 24 U daily + resistant SSI ordered on admission - Hypoglycemia precautions ordered due to reported hypoglycemia at home - Continue to monitor BG trends; adjust regimen as necessary * H&P - Blayne Ordaz DO - 06/25/2025 10:10 PM EDT Images from the original note were not included. Family Medicine History and Physical Note Patient: Monika Ordaz Admit Date: 06/25/2025 Admitting Attending: Chilo Morales MD Subjective Monika Ordaz is a 64 y.o. female with PMH significant for COPD, CKD stage IIIB, coronary arterydisease, diabetic neuropathy, dysphagia, obesity, JONATHAN on BiPAP nightly, RA, SLE, HLD, type 2 DM, cirrhosis with ascites, esophageal varices, portal hypertension, IBS C/D, presenting from nephrology with concern for CARLOTTA and inability to care for self. ED Course: Per discussion with ED providers, patient presented to nephrology clinic today for follow up of CKD. Labs were concerning for CARLOTTA and Nephrology was concerned enough to send patient to ED for further workup especially in setting of her general inability to care for self with potential social concerns. Per ED she is hemodynamically stable, occasionally gets paracentesis 1 time per week on with the occasional thoracentesis. She is potentially endorsing some LLQ pain and they found right pleural effusion versus pneumonia on imaging. Vitals POA: Temp 98.2??, pulse 65, RR 16, BP 121/61, SpO2 98% on room air. Lab work pertinent for CBC with leukopenia WBC 2.33, hemoglobin 9.3 around baseline (normocytic), platelet count 39 (lowest in recent history), PT/INR elevated, CMP with elevated BG 242, creatinine 2.5 on baseline 1.1-1.3, liver enzymes slightly elevated, T bili 2.1, Mag 1.6. ED Imaging conducted and significant for, CXR concerning for new medium-sized right pleural effusion with right lower/middle lobe opacities possibly representing atelectasis versus infection. Additional workup/management in ED includes but not limited to: EKG. On arrival to [facility], patient promptly evaluated by FM Team. Three of her family members are also present at bedside and helps provide the history. Patient confirms the above history provided by the ED.States that the LLQ pain that she is currently experiencing is due to having had a sample of her ascites taken a few days ago. She otherwise has no new complaints at this time. Following interview, 2of her family members state that they are becoming increasingly concerned that they will not be able to care for her as her chronic illnesses progress. State that she has become transiently confused more frequently at home. Patient confirms and states that most recently, she had an issue where she had forgotten how to perform basic hygiene after using the bathroom. Family are requesting patient be placed in a facility with 24 hour care until she is ???stronger?? and able to perform her ADLs. They state they have had this conversation with their PCP already and/or currently working toward that goal. Family Medicine consulted for CARLOTTA in setting of cirrhosis concerning for HRS and patient admitted under attending Dr. Morales. Review of Systems Additional review of systems negative except per HPI. Home Medications: Current Outpatient Medications Medication Instructions calcitriol (ROCALTROL) 0.25 mcg, Oral, Daily capsaicin (Zostrix-HP) 0.075 % topical cream 1 Application, Daily PRN cetirizine (ZYRTEC) 10 mg, Oral, Daily cholecalciferol (VITAMIN D-3) 1,000 Units, Oral, Daily ciprofloxacin (CIPRO) 500 mg, Oral, Daily ergocalciferol (VITAMIN D-2) 50,000 Units, Oral, Weekly insulin aspart (NOVOLOG) 20 Units, 3 times daily before meals lactulose (CHRONULAC) 20 g, Oral, 3 times daily Lantus SoloStar 48 Units, Every morning Magnesium Oxide, Laxative, 500 MG tablet 1 tablet, Oral, Daily midodrine (PROAMATINE) 10 mg, 3 times daily Multiple Vitamins-Minerals (COMPLETE WOMENS PO) 1 tablet, Daily prochlorperazine (COMPAZINE) 5 mg, Oral, Every 8 hours PRN rifAXIMin (XIFAXAN) 550 mg, Oral, 2 times daily Tums E-X 750 mg, Oral, Daily Tymlos 80 mcg, Subcutaneous, Daily [place] 0.6 mg, Subcutaneous, Once as needed zinc sulfate (ZINCATE) 220 mg, Oral, 2 times daily Objective Visit Vitals BP 111/63 Pulse 65 Temp 36.7 ??C (98.1 ??F) Resp 16 Ht 1.651 m (5' 5 ) Wt 81.9 kg (180 lb 8.9 oz) SpO2 96% BMI 30.05 kg/m?? OB Status Postmenopausal Smoking Status Never BSA 1.94 m?? Physical Exam Constitutional: General: She is not in acute distress. Appearance: She is obese. Cardiovascular: Rate and Rhythm: Normal rate and regular rhythm. Heart sounds: Murmur (2/6, systolic, heard best at the upper sternal borders) heard. Pulmonary: Effort: Pulmonary effort is normal. No respiratory distress. Breath sounds: Rales (right base) present. Abdominal: General: There is distension. Palpations: Abdomen is soft. Tenderness: There is abdominal tenderness (LLQ). There is no guarding. Musculoskeletal: Right lower leg: No edema. Left lower leg: No edema. Neurological: Mental Status: She is alert and oriented to person, place, and time. Mental status is at baseline. Assessment/Plan Monika Ordaz is a 64 y.o. female with PMH significant for COPD, CKD stage IIIB, coronary arterydisease, diabetic neuropathy, dysphagia, obesity, JONATHAN on BiPAP nightly, RA, SLE, HLD, type 2 DM, cirrhosis with ascites, esophageal varices, portal hypertension, IBS C/D admitted to Acute level of care for CARLOTTA on CKD. Assessment & Plan Acute kidney injury superimposed on stage 3b chronic kidney disease (CMS/HCC) Chronic kidney disease, stage 3b (CMS/HCC) Cirrhosis of liver with ascites (CMS/HCC) Hx of spontaneous bacterial peritonitis Pleural effusion associated with hepatic disorder LLQ abdominal pain MELD 3.0: 31 at 06/25/2025 3:00 PM MELD-Na: 28 at 06/25/2025 3:00 PM Calculated from: Serum Creatinine: 2.5 mg/dL at 06/25/2025 3:00 PM Serum Sodium: 132 mmol/L at 06/25/2025 3:00 PM Total Bilirubin: 2.1 mg/dL at 06/25/2025 3:00 PM Serum Albumin: 3 g/dL at 06/25/2025 3:00 PM INR(ratio): 2 at 06/25/2025 3:00 PM Age at listin years Sex: Female at 06/25/2025 3:00 PM - Creatinine 1.1-1.3 at baseline; 2.5 on arrival in the ED - Vitals stable on arrival - Undergoes paracentesis +/- thoracentesis routinely with IR on - Etiology at this time uncertain; will complete workup to rule out HRS - Currently takes lactulose 30 g three times a day and rifaximin 550 mg BID; reports 2-3 BM per day - Takes ciprofloxacin 500 mg daily for SBP prophylaxis; EKG shows QTc 450 - Takes midrodine 20 mg TID for BP support; BP stable on arrival - Followed by CKD-MBD clinic; takes abaloparatide 80 mcg subcutaneous daily, calcitriol 0.25 mg daily, Vit D 1000 U daily and 51472 U weekly (Sundays) PLAN: - Admitted to acute under attending Dr. Morales for further workup - Trend creatinine on daily CMP - Daily CBC, Mg, and Phos labs ordered - Serum osmol, Urine P:C, and urine sodium ordered for further workup - Nephrology and hepatology consult in the AM - Consult IR for paracentesis in the AM; plan for 06/27 to keep consistent weekly schedule - Vitals q4h - Continue home lactulose, rifaximin, midrodine and ciprofloxacin - Continue daily vit D 1000 U; [id number] U to be ordered on 06/30 if still admitted - Renally dose medications and avoid nephrotoxic agents Physical debility Self-care deficit - Per family, transplant surgery requesting patient to be mostly independent with ADLs prior to transplant consideration - Patient reports poor PO intake due to persistent large volume ascites requiring weekly paracentesis - Family requesting help with care; would like to discuss inpatient facility, has had home health in the past PLAN: - PT/OT and nutrition consult ordered; recs appreciated Type 2 diabetes mellitus, with long-term current use of insulin (CMS/HCC) Diabetic peripheral neuropathy (CMS/HCC) - Takes glargine 48 U daily and aspart 24 U TID w/meals + 12 U before small meals/snacks - Correction factor of 4:50>150 with aspart - BG 245 on arrival - Per patient and family, she has had episodes of profound hypoglycemia recently; reports as low asin the 50s PLAN: - Glargine 24 U daily + resistant SSI ordered on admission - Hypoglycemia precautions ordered due to reported hypoglycemia at home - Continue to monitor BG trends; adjust regimen as necessary Dysphagia Heartburn Advised to hold omeprazole at most recent nephrology appointment due to CARLOTTA; continue to hold Chronic obstructive pulmonary disease (CMS/HCC) JONATHAN treated with BiPAP Continue nightly BiPAP at 12/6 per RT recs; RT to adjust settings as appropriate 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 (CMS/HCC) Hyperlipidemia Crestor discontinued at most recent nephrology appointment; continue to hold Obesity (BMI 30.0-34.9) Complicates all aspects of care F: PO E: Monitor and replace as necessary N: Adult diet Diet texture: Regular; Carbohydrate restriction: Consistent Carb 3 (95 gm max/meal); Fat restriction: Fat-Free; Electrolyte Restriction: Renal GI: no PPI DVT prophylaxis: SCDs Lines and Tubes: pIV CODE: Full Code SOCIAL: Lives at home with family in [place], [place] PT/OT: consulted, appreciate recommendations Consultants: PT/OT Disposition: Medically Ready for Discharge:Anticipated in 2-4 Days [ ] Resolution of CARLOTTA [ ] PT/OT recs [ ] Clinical stability Dayne Medel DO, MS, MS Family Medicine, PGY-3 [facility] Blayne Ordaz DO PGY-2, Family Medicine [facility] Cosigned by Chilo Morales MD at 06/26/2025 3:32 PM EDT Associated attestation - Chilo Morales MD - 06/26/2025 3:32 PM EDT I discussed the case with the resident/fellow and agree with the findings and plan as documented. * ED Provider Notes - Mildred Cervantes DO - 06/25/2025 2:14 PM EDT Images from the original note were not included. Diagnosis management comments: I, Mildred Cervantes DO, saw and evaluated the patient with the medical student. I discussed the case with the medical student and agree with the findings and plan as documented. I personally performed the Exam and Medical Decision Making. - HPI Chief Complaint Patient presents with Abnormal Lab Creatinine mentioned by PT. Monika Ordaz is a (an) 64 y.o. female [facility], CKD, T2DM,COPD, CAD brought to the emergency department by EMS for worsening kidney function. She was seen byher fence making machine operator earlier today who noted she has had worsening kidney function with a baseline serum creatinine at about 1.4 which had risen to 2.3. Patient states she gets paracentesis once weekly every and sometimes also thoracentesis. She is compliant with her medications. She states she occasionally gets heart pain with shortness of breath for which she was seen at [facility] two days ago. She currently denies chest pain and shortness of breath. History is also significant for poor by mouth intake as she has had worsening appetite over the last two months. She states that the site and/or smell of food will make her sick to her stomach, and she will occasionally vomit from this. She recently moved in with her sister as she would occasionally have moments where she would get confused and not know how to use her phone which made her feel unsafe taking care of herself at home. Patient History Past Medical History[1] Surgical History[2] Family History[3] Social History[4] Allergies: Allergies[5] Physical Exam ED Triage Vitals Temp Pulse Resp BP -- -- -- -- SpO2 Temp src Heart Rate Source Patient Position -- -- -- -- BP Location FiO2 (%) -- -- Physical Exam Vitals reviewed. Constitutional: Appearance: She is not toxic-appearing. HENT: Head: Normocephalic and atraumatic. Mouth/Throat: Mouth: Mucous membranes are moist. Eyes: General: Scleral icterus (mild) present. Extraocular Movements: Extraocular movements intact. Pupils: Pupils are equal, round, and reactive to light. Cardiovascular: Rate and Rhythm: Normal rate and regular rhythm. Pulses: Radial pulses are 2+ on the right side and 2+ on the left side. Posterior tibial pulses are 2+ on the right side and 2+ on the left side. Heart sounds: S1 normal and S2 normal. No murmur heard. No friction rub. No gallop. Pulmonary: Effort: Pulmonary effort is normal. Breath sounds: Normal breath sounds and air entry. No wheezing or rales. Abdominal: General: There is distension. Palpations: Abdomen is soft. Tenderness: There is abdominal tenderness (mild LLQ). Musculoskeletal: Cervical back: Normal range of motion and neck supple. Right lower leg: No edema. Left lower leg: No edema. Skin: General: Skin is warm and dry. Neurological: General: No focal deficit present. Mental Status: She is alert. [place] Coma Scale Score: 15 ED Course & MDM - Assessment: 64 y.o. female presents to ED with complaint of worsening kidney function. It should be noted that the chronic conditions includes MASH cirrhosis awaiting liver transplant, CKD, T2DM, COPD, CAD, which currently is not at goal therapy. This complicates the clinical picture because it Comorbidities: may be exacerbating symptoms, increases the amount and complexity of data to be reviewed, complicates the clinical workup, and increases the risk for morbidity On initial evaluation, the situated in bed, appearing in no acute cardiorespiratory or physical distress. Alert and cooperative, interacting appropriately with examiner. Gross neurologic exam revealsno focal deficits. Hemodynamically stable and saturating well on room air. She currently has no chest pain, shortness of breath. She does have moderate abdominal distention and mild left lower quadrant pain, but heart and lung exams are clear. She does not exhibit any other signs of fluid overload such as rales, hypertension, or lower extremity pitting edema. We will start initial workup with basic labs as well as ECG and CXR. Differential Diagnosis: CARLOTTA, acute on chronic liver failure, CHF, pneumonia In order to fully explore the differential diagnosis the following treatments and tests were ordered: All Other Orders Ordered Status Ordering Provider 06/25/251935 CBC and Differential Morning draw Order ID Start Status Ordering Provider [id number] 06/26/25 0400 Final result BLAYNE ORDAZ [id number] 06/27/25 0400 Acknowledged BLAYNE ORDAZ 06/28/25 0400 Scheduled ORDAZ, BLAYNE S 06/29/25 0400 Scheduled ORDAZ, BLAYNE S 06/30/25 0400 Scheduled ORDAZ, BLAYNE S Acknowledged ORDAZ, BLAYNE S 06/25/25 193 Magnesium, Plasma Morning draw Order ID Start Status Ordering Provider [id number] 06/26/25 0400 Final result ORDAZ, BLAYNE S [id number] 06/27/25 0400 Acknowledged ORDAZ, BLAYNE S 06/28/25 0400 Scheduled ORDAZ, BLAYNE S 06/29/25 0400 Scheduled ORDAZ, BLAYNE S 06/30/25 0400 Scheduled ORDAZ, BLAYNE S Acknowledged ORDAZ, BLAYNE S 06/25/25 193 Phosphorus, Plasma Morning draw Order ID Start Status Ordering Provider [id number] 06/26/25 0400 Final result ORDAZ, BLAYNE S [id number] 06/27/25 0400 Acknowledged ORDAZ, BLAYNE S 06/28/25 0400 Scheduled ORDAZ, BLAYNE S 06/29/25 0400 Scheduled ORDAZ, BLAYNE S 06/30/25 0400 Scheduled ORDAZ, BLAYNE S Acknowledged ORDAZ, BLAYNE S 06/25/25 193 Comprehensive metabolic panel Morning draw Order ID Start Status Ordering Provider [id number] 06/26/25 0400 Final result ORDAZ, BLAYNE S [id number] 06/27/25 0400 Acknowledged ORDAZ, BLAYNE S 06/28/25 0400 Scheduled ORDAZ, BLAYNE S 06/29/25 0400 Scheduled ORDAZ, BLAYNE S 06/30/25 0400 Scheduled ORDAZ, BLAYNE S Acknowledged ORDAZ, BLAYNE S 06/25/25 193 Vital Signs Every 4 hours Acknowledged ORLIN BLAYNE S 06/25/251935 Sequential compression device Until discontinued Comments: SCDs must be in place and turned on EXCEPT when ACTIVELY ambulating. Acknowledged ORLIN BLAYNE S 06/25/251935 Do Not Give Nicotine Replacement Until discontinued Acknowledged BLAYNE ORDAZ 06/25/251935 Full code Continuous Acknowledged ORLIN BLAYNE S 06/25/251935 Diet effective now Canceled ORLIN BLAYNE S 06/25/25 193 Mobility Orders Until discontinued BLAYNE Sher 06/25/25 193 No Smoking Until discontinued Acknowledged BLAYNE ORDAZ 06/25/25 193 Notify physician (specify parameters) Until discontinued Acknowledged BLAYNE ORDAZ 06/25/25 1936 Insert peripheral IV Once Placed in And Linked Group Completed BLAYNE ORDAZ 06/25/25 193 Saline lock IV Once Placed in And Linked Group Completed BLAYNE ORDAZ 06/25/25 193 Admit to inpatient Once Completed BLAYNE ORDAZ 06/25/25 1818 POCT glucose meter PROCEDURE ONCE Final result KADIE MAURO 06/25/25 1713 Consult to Family Medicine Once Specialty: Family Medicine Provider: (Not yet assigned) Acknowledged BLAYNE ORDAZ 06/25/25 1713 ED to floor bed request Once Completed BLAYNE ORDAZ 06/25/25 1638 Manual Differential Once Final result SCOCCA, MILDRED L 06/25/25 1638 Morphology Once Final result SCOCCA, MILDRED L 06/25/25 1622 Once Specialty: Internal Medicine Provider: (Not yet assigned) Canceled SCOCCA, MILDRED L 06/25/25 1622 Once Canceled SCOCCA, MILDRED L 06/25/25 1446 XR Chest 1 View One time imaging Final result SCOCCA MILDRED L 06/25/25 1444 ECG Adult Once Final result SCOCCA, MILDRED L 06/25/25 1444 CBC w/diff STAT Final result SCOCCA, MILDRED L 06/25/25 1444 PT-INR STAT Final result SCOCCA, MILDRED L 06/25/25 1444 CMP STAT Final result SCOCCA, MILDRED L 06/25/25 1444 Magnesium STAT Final result SCOCCA, MILDRED L 06/25/25 1444 Phosphorus STAT Final result SCOCCA, MILDRED L 06/25/25 1427 POCT glucose meter PROCEDURE ONCE Final result POCT, GENERIC PROVIDER ED Course as of 06/26/252033Jun 25, [id number] I discussed this patient with hospital medicine who states patient [CS] ED Course User Index [CS] Shari Cervanteserine LDO Social Determinates of Health Risks (including Economic Stability, Education and level of understanding, Healthcare access and quality and concerning social factors): Poor social support and Lives far away PT/INR at patient's baseline. SCr is 2.5, which is >1.5x her baseline of 1.4. XR chest personally reviewed by me. Cardiac silhouette is normal in size and contour. Diaphragm is well-defined and intact. No obvious abnormalities of bones or soft tissues. Opacity over the right lung involving the costophrenic angle consistent with pleural effusion versus pneumonia. On reassessment, patient is comfortably situated in bed. I did double check with her that she is not having any shortness of breath right now due to x-ray showing possible pleural effusion versus pneumonia, and she stated that she is not having any shortness of breath. She stated if she has to sleep overnight without BiPAP and she woke up?? be in trouble?? and asked that she would have other BiPAP or at oxygen through full face mask. Given patient's CARLOTTA, likely hepatorenal in etiology, I discussed this patient with hospital medicine for admission, however, hospital medicine stated patient is a family medicine patient. I discussedthis with patient and she states she is usually always admitted here at [place] so that transplantis available. I discussed this with Internal Medicine (Dr. Magaña) who stated Transplant is available at [facility] as well as that patient could be transported to [facility] for her scheduled IR thoracentesis and paracentesis and then transferred back to [facility]. I discussed this with patient who is now agreeable for transfer to [facility] and admission to family medicine. I spoke with Family Medicine team at [facility] and they are agreeable to admit. Ultimately, this patient was Was admitted (Admission) There were no encounter diagnoses.. Patient believed to require admission for the listed diagnoses. The family medicine service was consulted for admission and was agreeable to admit to Acute Floor (Med/Surg). ED Prescriptions None Disposition Admit Admitting/Attending Physician: CHILO MORALES [[id number]] Provider Care Team: FAMILY MEDICINE [58] Are they the primary team?: Yes [1] - Randal Medina [facility] [employer] Candidate, 202506/26/2025 8:34 PM Nydia Cervantes DO, MHEd Emergency Medicine PGY-3 [1] Past Medical History: Diagnosis Date ADHD (attention deficit hyperactivity disorder) Allergic Anxiety disorder, unspecified Anxiety Bleeding gums Blood in urine Cataract Chronic kidney disease Cirrhosis (CMS/HCC) Colon cancer screening 09/20/2019 Added automatically from request for surgery [id number] Coronary artery disease Depression 1996 Diabetes mellitus [...] 1979 BLADDER SURGERY N/A Bladder surgery from [facility] BREAST BIOPSY 2011 BREAST SURGERY 2010 BUNIONECTOMY Right CATARACT EXTRACTION Bilateral 2016 CHOLECYSTECTOMY 1979 ESOPHAGOGASTRODUODENOSCOPY HYSTERECTOMY N/A Hysterectomy from [facility] KNEE SURGERY Bilateral ORAL SURGERY N/A Oral surgery from [facility] OTHER SURGICAL HISTORY 2014 ROOT CANAL WISDOM [...] Immunodeficiency Sister Lj Bernal Rheumatologic disease Sister jL Bernal Recurrent Infections Sister Lj Bernal Dementia Maternal Grandmother Christine Dick Alzheimer's disease Maternal Grandmother Christine Dick Emphysema Maternal Grandmother Nikidiana Dick No Known Problems Maternal Grandfather Kidney disease Paternal Grandmother Anish Singletary Stomach cancer Paternal Grandmother Anish Singletary Dementia Paternal Grandfather No Known Problems Son Diabetes Son Depression Son Anxiety disorder Son Obesity Son Depression Son Jp Ordaz Asthma Son Jp Ordaz Mental illness Son Jp Ordaz Depression Son Viral Ordaz Diabetes Son Viral Ordaz [4] Tobacco Use Smoking status: Never Passive exposure: Never Smokeless tobacco: Never Vaping Use Vaping status: Never Used Substance Use Topics Alcohol use: Not Currently Drug use: Never [5] No Known Allergies Mildred Cervantes DO Resident 06/26/252033 Cosigned by Kadie Mauro MD at 06/28/2025 8:52 AM EDT Associated attestation - Kadie Mauro MD - 06/28/2025 8:52 AM EDT IKadie MD, personally verified the history, examined the patient, discussed with the student and resident and performed the medical decision making. I agree with the documentation and plan of care. * ED Triage Notes - Evelio Hinojosa - 06/25/2025 2:14 PM EDT PT was at [facility] Nephrology. Staff notified PT of an abnormal lab value and encouraged immediate medical attention via Emergency Department. Vitals stable during transport. documented in this encounter Plan of Treatment Upcoming Encounters Date Type Department Care Team (Late st Contact Info) Description 08/01/2025 10:00 AM EDT Appointment [facility] [address] [place] [address] 08/01/2025 11:00 AM EDT Appointment [facility] [address] [place] [address] 08/08/2025 11:15 AM EDT Appointment [facility] [address] [place] [address] 08/08/2025 12:15 PM EDT Appointment [facility] [address] [place] [address] 2025 10:00 AM EDT Appointment [facility] [address] [place] [address] 2025 11:00 AM EDT Appointment [facility] [address] [place] [address] 08/20/2025 9:30 AM EDT Clinical Support [facility] [place] [address] [facility] [address] [place] [address] 08/20/2025 10:30 AM EDT Social Work [facility] [place] [address] [facility] [place] [address] [place] [address] 08/20/2025 11:00 AM EDT Office Visit [facility] [address] [facility] [address] [place] [address] Jude Duuqe MD [address] [facility] [address] [place] [address] Scheduled Orders Name Type Priority Associated Diagnoses Orde r Schedule Body Fluid Culture and Gram Stain - Pleural Left Microbiology Routine Once (Lab) for 1 Occurrences starting 07/04/2025 until 07/04/2025 Scheduled Referrals Name Type Priority Associated Diagnoses Order Schedule Discharge Ambulatory referral to Family Medicine Outpatient Referral Routine CARLOTTA (acute kidney injury) ([facility]) Expected: 07/23/2025, Expires: 01/10/2027 documented as of this encounter Procedures Procedure Name Priority Date/Time Associated Diagnosis Comments POCT GLUCOSE METER UNSOLICITED RESULTS Routine 07/09/2025 11:23 AM EDT POCT GLUCOSE METER UNSOLICITED RESULTS Routine 07/09/2025 8:10 AM EDT PROTHROMBIN TIME(PT) / INR Pending Discharge 07/09/2025 5:52 AM EDT POCT GLUCOSE METER UNSOLICITED RESULTS Routine 07/09/2025 3:59 AM EDT CBC WITH AUTO DIFFERENTIAL Pending Discharge 07/09/2025 3:22 AM EDT PHOSPHORUS, PLASMA Pending Discharge 07/09/2025 3:22 AM EDT MAGNESIUM, PLASMA Pending Discharge 07/09/2025 3:22 AM EDT COMPREHENSIVE METABOLIC PANEL, PLASMA Pending Discharge 07/09/2025 3:22 AM EDT POCT GLUCOSE METER UNSOLICITED RESULTS Routine 07/08/2025 8:37 PM EDT POCT GLUCOSE METER UNSOLICITED RESULTS Routine 07/08/2025 4:42 PM EDT POCT GLUCOSE METER UNSOLICITED RESULTS Routine 07/08/2025 11:28 AM EDT POCT GLUCOSE METER UNSOLICITED RESULTS Routine 07/08/2025 8:02 AM EDT PROTHROMBIN TIME(PT) / INR Routine 07/08/2025 4:21 AM EDT CBC WITH AUTO DIFFERENTIAL Routine 07/08/2025 4:21 AM EDT PHOSPHORUS, PLASMA Routine 07/08/2025 4: 21 AM EDT MAGNESIUM, PLASMA Routine 07/08/2025 4:2 1 AM EDT AMMONIA, PLASMA Routine 07/08/2025 4:21 AM EDT COMPREHENSIVE METABOLIC PANEL, PLASMA Routine 07/08/2025 4:21 AM EDT POCT GLUCOSE METER UNSOLICITED RESULTS Routine 07/07/2025 8:29 PM EDT POCT GLUCOSE METER UNSOLICITED RESULTS Routine 07/07/2025 4:43 PM EDT POCT GLUCOSE METER UNSOLICITED RESULTS Routine 07/07/2025 1:36 PM EDT POCT GLUCOSE METER UNSOLICITED RESULTS Routine 07/07/2025 11:54 AM EDT POCT GLUCOSE METER UNSOLICITED RESULTS Routine 07/07/2025 8:01 AM EDT PROTHROMBIN TIME(PT) / INR Routine 07/07/2025 3:30 AM EDT CBC WITH AUTO DIFFERENTIAL Routine 07/07/2025 3:30 AM EDT PHOSPHORUS, PLASMA Routine 07/07/2025 3: 30 AM EDT MAGNESIUM, PLASMA Routine 07/07/2025 3:3 0 AM EDT COMPREHENSIVE METABOLIC PANEL, PLASMA Routine 07/07/2025 3:30 AM EDT POCT GLUCOSE METER UNSOLICITED RESULTS Routine 07/06/2025 8:03 PM EDT POCT GLUCOSE METER UNSOLICITED RESULTS Routine 07/06/2025 4:54 PM EDT POCT GLUCOSE METER UNSOLICITED RESULTS Routine 07/06/2025 11:37 AM EDT POCT GLUCOSE METER UNSOLICITED RESULTS Routine 07/06/2025 8:19 AM EDT PROTHROMBIN TIME(PT) / INR Routine 07/06/2025 2:31 AM EDT CBC WITH AUTO DIFFERENTIAL Routine 07/06/2025 2:31 AM EDT PHOSPHORUS, PLASMA Routine 07/06/2025 2: 31 AM EDT MAGNESIUM, PLASMA Routine 07/06/2025 2:3 1 AM EDT COMPREHENSIVE METABOLIC PANEL, PLASMA Routine 07/06/2025 2:31 AM EDT POCT GLUCOSE METER UNSOLICITED RESULTS Routine 07/05/2025 8:06 PM EDT POCT GLUCOSE METER UNSOLICITED RESULTS Routine 07/05/2025 4:46 PM EDT POCT GLUCOSE METER UNSOLICITED RESULTS Routine 07/05/2025 11:53 AM EDT POCT GLUCOSE METER UNSOLICITED RESULTS Routine 07/05/2025 7:52 AM EDT PROTHROMBIN TIME(PT) / INR Routine 07/05/2025 4:01 AM EDT CBC WITH AUTO DIFFERENTIAL Routine 07/05/2025 4:01 AM EDT PHOSPHORUS, PLASMA Routine 07/05/2025 4: 01 AM EDT MAGNESIUM, PLASMA Routine 07/05/2025 4:0 1 AM EDT COMPREHENSIVE METABOLIC PANEL, PLASMA Routine 07/05/2025 4:01 AM EDT POCT GLUCOSE METER UNSOLICITED RESULTS Routine 07/04/2025 8:46 PM EDT POCT GLUCOSE METER UNSOLICITED RESULTS Routine 07/04/2025 4:55 PM EDT POCT GLUCOSE METER UNSOLICITED RESULTS Routine 07/04/2025 2:04 PM EDT XR CHEST 1 VIEW STAT 07/04/2025 11:43 AM EDT US GUIDED ABDOMINAL PARACENTESIS Routine 07/04/2025 11:01 AM EDT Other ascites Alcoholic cirrhosis of liver with ascites (CMS/HCC) US GUIDED THORACENTESIS Routine 07/04/2025 11:01 AM EDT Pleural effusion Shortness of breath BODY FLUID CELL COUNT W/ MANUAL DIFFERENTIAL Routine 07/04/2025 10:48 AM EDT TOTAL PROTEIN, PLEURAL FLUID Routine 07/04/2025 10:48 AM EDT LACTATE DEHYDROGENASE, PLEURAL FLUID Routine 07/04/2025 10:48 AM EDT BODY FLUID, CYTOSPIN, PATHOLOGIST INTERPRETATION Routine 07/04/2025 10:48 AM EDT BODY FLUID CULTURE AND GRAM STAIN Routine 07/04/2025 10:48 AM EDT BODY FLUID CELL COUNT W/ MANUAL DIFFERENTIAL Routine 07/04/2025 10:08 AM EDT BODY FLUID, CYTOSPIN, PATHOLOGIST INTERPRETATION Routine 07/04/2025 10:08 AM EDT BODY FLUID CULTURE AND GRAM STAIN Routine 07/04/2025 10:08 AM EDT TOTAL PROTEIN, PERITONEAL FLUID Routine 07/04/2025 10:08 AM EDT LACTATE DEHYDROGENASE, PERITONEAL FLUID Routine 07/04/2025 10:08 AM EDT GLUCOSE, PERITONEAL FLUID Routine 07/04/2025 10:08 AM EDT POCT GLUCOSE METER UNSOLICITED RESULTS Routine 07/04/2025 8:07 AM EDT PROTHROMBIN TIME(PT) / INR Routine 07/04/2025 4:47 AM EDT CBC WITH AUTO DIFFERENTIAL Routine 07/04/2025 4:47 AM EDT PHOSPHORUS, PLASMA Routine 07/04/2025 4: 47 AM EDT MAGNESIUM, PLASMA Routine 07/04/2025 4:4 7 AM EDT COMPREHENSIVE METABOLIC PANEL, PLASMA Routine 07/04/2025 4:47 AM EDT POCT GLUCOSE METER UNSOLICITED RESULTS Routine 07/03/2025 8:36 PM EDT XR CHEST 1 VIEW Routine 07/03/2025 7:02 PM EDT XR ABDOMEN 1 VIEW Routine 07/03/2025 7:0 2 PM EDT POCT GLUCOSE METER UNSOLICITED RESULTS Routine 07/03/2025 4:46 PM EDT POCT GLUCOSE METER UNSOLICITED RESULTS Routine 07/03/2025 11:50 AM EDT POCT GLUCOSE METER UNSOLICITED RESULTS Routine 07/03/2025 8:14 AM EDT PROTHROMBIN TIME(PT) / INR Routine 07/03/2025 4:25 AM EDT CBC WITH AUTO DIFFERENTIAL Routine 07/03/2025 4:25 AM EDT PHOSPHORUS, PLASMA Routine 07/03/2025 4: 25 AM EDT MAGNESIUM, PLASMA Routine 07/03/2025 4:2 5 AM EDT COMPREHENSIVE METABOLIC PANEL, PLASMA Routine 07/03/2025 4:25 AM EDT POCT GLUCOSE METER UNSOLICITED RESULTS Routine 07/02/2025 8:19 PM EDT POCT GLUCOSE METER UNSOLICITED RESULTS Routine 07/02/2025 4:53 PM EDT UREA NITROGEN, RANDOM URINE Routine 07/02/2025 12:42 PM EDT SODIUM, URINE, RANDOM Routine 07/02/2025 12:42 PM EDT OSMOLALITY, URINE Routine 07/02/2025 12: 42 PM EDT CREATININE, RANDOM URINE Routine 07/02/2025 12:42 PM EDT POCT GLUCOSE METER UNSOLICITED RESULTS Routine 07/02/2025 12:04 PM EDT POCT GLUCOSE METER UNSOLICITED RESULTS Routine 07/02/2025 8:20 AM EDT CBC WITH AUTO DIFFERENTIAL Routine 07/02/2025 4:19 AM EDT PHOSPHORUS, PLASMA Routine 07/02/2025 4: 19 AM EDT MAGNESIUM, PLASMA Routine 07/02/2025 4:1 9 AM EDT COMPREHENSIVE METABOLIC PANEL, PLASMA Routine 07/02/2025 4:19 AM EDT POCT GLUCOSE METER UNSOLICITED RESULTS Routine 07/01/2025 8:01 PM EDT POCT GLUCOSE METER UNSOLICITED RESULTS Routine 07/01/2025 4:37 PM EDT POCT GLUCOSE METER UNSOLICITED RESULTS Routine 07/01/2025 12:10 PM EDT PROTHROMBIN TIME(PT) / INR STAT 07/01/2025 9:08 AM EDT POCT GLUCOSE METER UNSOLICITED RESULTS Routine 07/01/2025 8:04 AM EDT CBC WITH AUTO DIFFERENTIAL Routine 07/01/2025 12:00 AM EDT PHOSPHORUS, PLASMA Routine 07/01/2025 12 :00 AM EDT MAGNESIUM, PLASMA Routine 07/01/2025 12: 00 AM EDT COMPREHENSIVE METABOLIC PANEL, PLASMA Routine 07/01/2025 12:00 AM EDT POCT GLUCOSE METER UNSOLICITED RESULTS Routine 06/30/2025 8:52 PM EDT POCT GLUCOSE METER UNSOLICITED RESULTS Routine 06/30/2025 4:40 PM EDT POCT GLUCOSE METER UNSOLICITED RESULTS Routine 06/30/2025 11:48 AM EDT AMMONIA, PLASMA Routine 06/30/2025 8:53 AM EDT POCT GLUCOSE METER UNSOLICITED RESULTS Routine 06/30/2025 7:40 AM EDT PERIPHERAL BLOOD SMEAR, PSMEAR Routine 06/30/2025 12:37 AM EDT PERIPHERAL BLOOD SMEAR, PATHOLOGIST INTERPRETATION Routine 06/30/2025 12:37 AM EDT PHOSPHORUS, PLASMA Routine 06/30/2025 12 :37 AM EDT MAGNESIUM, PLASMA Routine 06/30/2025 12: 37 AM EDT COMPREHENSIVE METABOLIC PANEL, PLASMA Routine 06/30/2025 12:37 AM EDT POCT GLUCOSE METER UNSOLICITED RESULTS Routine 06/29/2025 8:07 PM EDT POCT GLUCOSE METER UNSOLICITED RESULTS Routine 06/29/2025 4:40 PM EDT POCT GLUCOSE METER UNSOLICITED RESULTS Routine 06/29/2025 12:12 PM EDT POCT GLUCOSE METER UNSOLICITED RESULTS Routine 06/29/2025 8:05 AM EDT CBC WITH AUTO DIFFERENTIAL Routine 06/29/2025 12:18 AM EDT PHOSPHORUS, PLASMA Routine 06/29/2025 12 :18 AM EDT MAGNESIUM, PLASMA Routine 06/29/2025 12: 18 AM EDT AMMONIA, PLASMA Routine 06/29/2025 12:18 AM EDT COMPREHENSIVE METABOLIC PANEL, PLASMA Routine 06/29/2025 12:18 AM EDT POCT GLUCOSE METER UNSOLICITED RESULTS Routine 06/28/2025 10:35 PM EDT POCT GLUCOSE METER UNSOLICITED RESULTS Routine 06/28/2025 4:41 PM EDT POCT GLUCOSE METER UNSOLICITED RESULTS Routine 06/28/2025 12:08 PM EDT POCT GLUCOSE METER UNSOLICITED RESULTS Routine 06/28/2025 8:19 AM EDT CBC WITH AUTO DIFFERENTIAL Routine 06/28/2025 3:50 AM EDT PREALBUMIN, PLASMA Add-On 06/28/2025 3: 50 AM EDT PHOSPHORUS, PLASMA Routine 06/28/2025 3: 50 AM EDT MAGNESIUM, PLASMA Routine 06/28/2025 3:5 0 AM EDT COMPREHENSIVE METABOLIC PANEL, PLASMA Routine 06/28/2025 3:50 AM EDT POCT GLUCOSE METER UNSOLICITED RESULTS Routine 06/27/2025 8:04 PM EDT POCT GLUCOSE METER UNSOLICITED RESULTS Routine 06/27/2025 4:41 PM EDT APTT Routine 06/27/2025 2:37 PM EDT CBC WITH AUTO DIFFERENTIAL Routine 06/27/2025 2:37 PM EDT MAGNESIUM, PLASMA Timed 06/27/2025 2:3 7 PM EDT BASIC METABOLIC PANEL, PLASMA Timed 06/27/2025 2:37 PM EDT XR CHEST 1 VIEW Routine 06/27/2025 10:49 AM EDT POCT GLUCOSE METER UNSOLICITED RESULTS Routine 06/27/2025 10:27 AM EDT US GUIDED ABDOMINAL PARACENTESIS Routine 06/27/2025 10:03 AM EDT US GUIDED THORACENTESIS Routine 06/27/2025 10:03 AM EDT BODY FLUID CELL COUNT W/ MANUAL DIFFERENTIAL Routine 06/27/2025 9:16 AM EDT ALBUMIN, PERITONEAL FLUID Routine 06/27/2025 9:16 AM EDT BODY FLUID, CYTOSPIN, PATHOLOGIST INTERPRETATION Routine 06/27/2025 9:16 AM EDT BODY FLUID CULTURE AND GRAM STAIN Routine 06/27/2025 9:16 AM EDT TOTAL PROTEIN, PERITONEAL FLUID Routine 06/27/2025 9:16 AM EDT LACTATE DEHYDROGENASE, PERITONEAL FLUID Routine 06/27/2025 9:16 AM EDT GLUCOSE, PERITONEAL FLUID Routine 06/27/2025 9:16 AM EDT POCT GLUCOSE METER UNSOLICITED RESULTS Routine 06/27/2025 5:53 AM EDT MORPHOLOGY Routine 06/27/2025 4:03 AM EDT CYSTATIN C Add-On 06/27/2025 4:03 AM EDT CBC WITH AUTO DIFFERENTIAL Routine 06/27/2025 4:03 AM EDT PHOSPHORUS, PLASMA Routine 06/27/2025 4: 03 AM EDT MAGNESIUM, PLASMA Routine 06/27/2025 4:0 3 AM EDT COMPREHENSIVE METABOLIC PANEL, PLASMA Routine 06/27/2025 4:03 AM EDT POCT GLUCOSE METER UNSOLICITED RESULTS Routine 06/27/2025 12:02 AM EDT POCT GLUCOSE METER UNSOLICITED RESULTS Routine 06/26/2025 8:51 PM EDT POCT GLUCOSE METER UNSOLICITED RESULTS Routine 06/26/2025 4:56 PM EDT POCT GLUCOSE METER UNSOLICITED RESULTS Routine 06/26/2025 12:16 PM EDT CYSTATIN C Routine 06/26/2025 11:13 AM EDT UREA NITROGEN, RANDOM URINE Routine 06/26/2025 10:40 AM EDT PROTEIN, URINE, RANDOM WITH CREATININE Routine 06/26/2025 10:40 AM EDT POCT GLUCOSE METER UNSOLICITED RESULTS Routine 06/26/2025 9:00 AM EDT POCT GLUCOSE METER UNSOLICITED RESULTS Routine 06/26/2025 8:30 AM EDT CBC WITH AUTO DIFFERENTIAL Routine 06/26/2025 3:47 AM EDT PHOSPHORUS, PLASMA Routine 06/26/2025 3: 47 AM EDT OSMOLALITY, SERUM Routine 06/26/2025 3:4 7 AM EDT MAGNESIUM, PLASMA Routine 06/26/2025 3:4 7 AM EDT COMPREHENSIVE METABOLIC PANEL, PLASMA Routine 06/26/2025 3:47 AM EDT POCT GLUCOSE METER UNSOLICITED RESULTS Routine 06/25/2025 7:49 PM EDT POCT GLUCOSE METER UNSOLICITED RESULTS Routine 06/25/2025 6:18 PM EDT XR CHEST 1 VIEW STAT 06/25/2025 3:53 PM EDT MORPHOLOGY STAT 06/25/2025 3:00 PM EDT MANUAL DIFFERENTIAL STAT 06/25/2025 3 :00 PM EDT PROTHROMBIN TIME(PT) / INR STAT 06/25/2025 3:00 PM EDT CBC WITH AUTO DIFFERENTIAL STAT 06/25/2025 3:00 PM EDT PHOSPHORUS, PLASMA STAT 06/25/2025 3: 00 PM EDT MAGNESIUM, PLASMA STAT 06/25/2025 3:0 0 PM EDT COMPREHENSIVE METABOLIC PANEL, PLASMA STAT 06/25/2025 3:00 PM EDT ECG ADULT STAT 06/25/2025 2:48 PM EDT POCT GLUCOSE METER UNSOLICITED RESULTS Routine 06/25/2025 2:27 PM EDT documented in this encounter Results * (ABNORMAL) POCT glucose meter (07/09/2025 11:23 AM EDT) [facility] POCT Glucose 199(H) 74 - 99 mg/dL 07/09/2025 11:25 AM EDT [facility] Comment:Accuracy of a glucos e result obtained from a capillary whole blood specimen relies upon adequate, non-compromised capillary blood flow. If the capillary glucose result is not consistent with the patient's clinical signs and symptoms, glucose testing should be repeated with either an arterial or venous sample on the glucometer or sent to the main labortory for testing. Comment 07/09/2025 11:25 AM EDT [facility] LAB Scrap Worker ID Nadia Salazar 11:25 AM EDT [facility]ALTHCARE LAB Device ID [id number] 07/09/2025 11:25 AM EDT [facility] LAB Specimen Type POC Capillary 07/09/2025 11:25 AM EDT [facility] Blood Capillary blood specimen / Unknown 07/09/2025 11:23 AM EDT 07/09/2025 11:25 AM EDT Kayla Reed MD LAB POINT OF CARE TEST DOCKED DEVICE UNSOLICITED RESULTS Final Result Performing Organization Address City/State/[facility] Co de Phone Number [facility]ALTHCARE LAB [address] [place] [address] * (ABNORMAL) POCT glucose meter (07/09/2025 8:10 AM EDT) [facility] POCT Glucose 126(H) 74 - 99 mg/dL 07/09/2025 8:12 AM EDT [facility] Comment:Accuracy of a glucos e result obtained from a capillary whole blood specimen relies upon adequate, non-compromised capillary blood flow. If the capillary glucose result is not consistent with the patient's clinical signs and symptoms, glucose testing should be repeated with either an arterial or venous sample on the glucometer or sent to the main labortory for testing. Comment 07/09/2025 8:12 AM EDT [facility]ALTHCARE LAB Scrap Worker ID Reyes Elias 07/09/2025 8:12 AM EDT HEALTHCARE LAB Device ID [id number] 07/09/2025 8:12 AM EDT [facility]ALTHCARE LAB Specimen Type POC Capillary 07/09/2025 8:12 AM EDT [facility] LAB Blood Capillary blood specimen / Unknown 07/09/2025 8:10 AM EDT 07/09/2025 8:12 AM EDT Kayla Reed MD LAB POINT OF CARE TEST DOCKED DEVICE UNSOLICITED RESULTS Final Result Performing Organization Address [facility] [address]/[facility] Co de Phone Number [facility] [address] [place] [address] * (ABNORMAL) Protime-INR (07/09/2025 5:52 AM EDT) Prothrombin Time 23.5(H) 12.0 - 14.3 sec 07/09/2025 6:07 AM EDT [facility]ALTHCARE LAB INR 2.0(H) 0.9 - 1.1 07/09/2025 6:07 AM EDT [facility] Blood Venous blood specimen / Unknown Venipuncture / Unknown 07/09/2025 5:52 AM EDT 07/09/2025 5:54 AM EDT Narrative [facility] - 07/09/2025 6:07 AM EDT OPTIMAL INR RANGES FOR PATIENT ON ORAL ANTICOAGULANT THERAPY Prevention of venous thromboembolism INR 2.0 to 3.0 In patients with heart disease: Atrial fibrillation INR 2.0 to 3.0 Valvular heart disease INR 2.0 to 3.0 Tissue heart valves INR 2.0 to 3.0 Mechanical prosthetic valves INR 2.5 to 3.5 Prevention of recurrent [place] INR 2.5 to 3.5 us Fabiana Cunninghma MD LAB BLOOD ORDERABLES Final Resu lt Performing Organization Address City/[facility] [address]/[facility] Co de Phone Number [facility] [address] [place] [address] * (ABNORMAL) POCT glucose meter (07/09/2025 3:59 AM EDT) Pathologist [facility] POCT Glucose 108(H) 74 - 99 mg/dL 07/09/2025 4:01 AM EDT [facility] Comment:Accuracy of a glucos e result obtained from a capillary whole blood specimen relies upon adequate, non-compromised capillary blood flow. If the capillary glucose result is not consistent with the patient's clinical signs and symptoms, glucose testing should be repeated with either an arterial or venous sample on the glucometer or sent to the main labortory for testing. Comment 07/09/2025 4:01 AM EDT [facility] Scrap Worker ID Love Gore 4:01 AM EDT [facility] Device ID [id number] 07/09/2025 4:01 AM EDT [facility] Specimen Type POC Capillary 07/09/2025 4:01 AM EDT [facility] Blood Capillary blood specimen / Unknown 07/09/2025 3:59 AM EDT 07/09/2025 4:01 AM EDT us Kayla Reed MD LAB POINT OF CARE TEST DOCKED DEVICE UNSOLICITED RESULTS Final Result [facility] [address] [place], [place] [id number] * (ABNORMAL) Comprehensive metabolic panel (07/09/2025 3:22 AM EDT) Glucose, Plasma 105(H) 74 - 99 mg/dL 07/09/2025 4:00 AM EDT [facility] BUN, Plasma 22 8 - 23 mg/dL 07/09/2025 4:00 AM EDT [facility] Creatinine, Plasma 1.22(H) 0.60 - 1.10 mg/dL 07/09/2025 4:00 AM EDT [facility] BUN/Creatinine Ratio 18 07/09/2025 4:00 AM EDT [facility] Sodium, Plasma 136 136 - 145 mmol/L 07/09/2025 4:00 AM EDT [facility] Potassium, Plasma 4.1 3.6 - 4.9 mmol/L 07/09/2025 4:00 AM EDT [facility] Chloride, Plasma 108(H) 97 - 107 mmol/L 07/09/2025 4:00 AM EDT [facility] CO2, Plasma 18(L) 22 - 29 mmol/L 07/09/2025 4:00 AM EDT [facility] Anion Gap 10 6 - 16 mmol/L 07/09/2025 4:00 AM EDT [facility] Total Calcium, Plasma 8.5(L) 8.9 - 10.2 mg/dL 07/09/2025 4:00 AM EDT [facility] Total Protein 6.2(L) 6.3 - 7.9 g/dL 07/09/2025 4:00 AM EDT [facility] Albumin, Plasma 3.5 3.5 - 5.2 g/dL 07/09/2025 4:00 AM EDT HEALTHCARE LAB AST, Plasma 39(H) 10 - 35 U/L 07/09/2025 4:00 AM EDT [facility] ALT, Plasma 19 10 - 35 U/L 07/09/2025 4:00 AM EDT [facility] Alkaline Phosphatase, Plasma 170(H) 46 - 142 U/L 07/09/2025 4:00 AM EDT [facility] Total Bilirubin, Plasma 2.7(H) 0.2 - 1.1 mg/dL 07/09/2025 4:00 AM EDT [facility] eGFRcr 50.3 mL/min/1.7 3m*2 07/09/2025 4:00 AM EDT [facility] Comment:Reported eGFRcr in m L/min/1.73m2 is based the CKD-EPI 2020 equation that does not use a race coefficient. Blood Venous blood specimen / Unknown Venipuncture / Unknown 07/09/2025 3:22 AM EDT 07/09/2025 3:39 AM EDT Chilo Morales MD LAB BLOOD ORDERABLES Final Result Performing Organization Address City/[facility] [address]/[facility] Co de Phone Number [facility] [address] [place] [address] * Phosphorus, Plasma (07/09/2025 3:22 AM EDT) Phosphorus, Plasma 3.6 2.5 - 4.5 mg/dL 07/09/2025 4:00 AM EDT [facility] Blood Venous blood specimen / Unknown Venipuncture / Unknown 07/09/2025 3:22 AM EDT 07/09/2025 3:39 AM EDT Chilo Morales MD LAB BLOOD ORDERABLES Final Result [facility] [address] [place] [address] * Magnesium, Plasma (07/09/2025 3:22 AM EDT) Magnesium, Plasma 1.9 1.9 - 2.4 mg/dL 07/09/2025 4:00 AM EDT [facility] Blood Venous blood specimen / Unknown Venipuncture / Unknown 07/09/2025 3:22 AM EDT 07/09/2025 3:39 AM EDT us Chilo Morales MD LAB BLOOD ORDERABLES Final Result [facility] [address] [place] [id number] * (ABNORMAL) CBC and Differential (07/09/2025 3:22 AM EDT) [facility] WBC Count 3.24(L) 3.70 - 10.30 10*3/uL LAB HEMATOLOGY METHOD 07/09/2025 3:42 AM EDT [facility] RBC Count 2.67(L) 3.90 - 5.20 10*6/uL LAB HEMATOLOGY METHOD 07/09/2025 3:42 AM EDT [facility] HGB 8.4(L) 11.2 - 15.7 g/dL LAB HEMATOLOGY METHOD 07/09/2025 3:42 AM EDT [facility] HCT 25.0(L) 34.0 - 45.0 % LAB HEMATOLOGY METHOD 07/09/2025 3:42 AM EDT [facility] Platelet Count 51(L) 155 - 369 10*3/uL LAB HEMATOLOGY METHOD 07/09/2025 3:42 AM EDT [facility] MCV 94 79 - 98 fL LAB HEMATOLOGY METHOD 07/09/2025 3:42 AM EDT [facility] MCH 31.5 26.0 - 32.0 pg LAB HEMATOLOGY METHOD 07/09/2025 3:42 AM EDT [facility] MCHC 33.6 30.7 - 35.5 g/dL LAB HEMATOLOGY METHOD 07/09/2025 3:42 AM EDT [facility] RDW 16.2(H) 11.5 - 14.5 % LAB HEMATOLOGY METHOD 07/09/2025 3:42 AM EDT [facility] MPV 11.8 8.8 - 12.5 fL LAB HEMATOLOGY METHOD 07/09/2025 3:42 AM EDT [facility] nRBC 0.0 <=0.0 per 100 WBCs LAB HEMATOLOGY METHOD 07/09/2025 3:42 AM EDT [facility] Differential Type Automated LAB HEMATOLOGY METHOD 07/09/2025 3:42 AM EDT [facility] Neutrophils % 57 % LAB HEMATOLOGY METHOD 07/09/2025 3:42 AM EDT [facility] Lymphocytes % 23 % LAB HEMATOLOGY METHOD 07/09/2025 3:42 AM EDT [facility] Monocytes % 16 % LAB HEMATOLOGY METHOD 07/09/2025 3:42 AM EDT [facility] Eosinophils % 3 % LAB HEMATOLOGY METHOD 07/09/2025 3:42 AM EDT [facility] Basophils % 1 % LAB HEMATOLOGY METHOD 07/09/2025 3:42 AM EDT [facility] Immature Granulocytes % 0 % LAB HEMATOLOGY METHOD 07/09/2025 3:42 AM EDT [facility] Neutrophils Absolute 1.84 1.60 - 6.10 10*3/uL LAB HEMATOLOGY METHOD 07/09/2025 3:42 AM EDT [facility] Lymphocytes Absolute 0.73(L) 1.20 - 3.90 10*3/uL LAB HEMATOLOGY METHOD 07/09/2025 3:42 AM EDT [facility] Monocytes Absolute 0.52 0.30 - 0.90 10*3/uL LAB HEMATOLOGY METHOD 07/09/2025 3:42 AM EDT [facility] Eosinophils Absolute 0.11 0.00 - 0.50 10*3/uL LAB HEMATOLOGY METHOD 07/09/2025 3:42 AM EDT [facility] Basophils Absolute 0.03 0.00 - 0.10 10*3/uL LAB HEMATOLOGY METHOD 07/09/2025 3:42 AM EDT [facility] Immature Granulocytes Absolute 0.01 0.00 - 0.06 10*3/uL LAB HEMATOLOGY METHOD 07/09/2025 3:42 AM EDT [facility] Blood Venous blood specimen / Unknown Venipuncture / Unknown 07/09/2025 3:22 AM EDT 07/09/2025 3:38 AM EDT Narrative HEALTHCARE LAB - 07/09/2025 3:42 AM EDT Therapeutic decision making should be based on absolute values, rather than percentages. us Chilo Morales MD LAB BLOOD ORDERABLES Final Result [facility] [address] [place] [address] * (ABNORMAL) POCT glucose meter (07/08/2025 8:37 PM EDT) POCT Glucose 164(H) 74 - 99 mg/dL 07/08/2025 8:39 PM EDT [facility] Comment:Accuracy of [...] to the main labortory for testing. Comment 07/08/2025 8:39 PM EDT [facility] Scrap Worker ID Love Gore 8:39 PM EDT [facility] Device ID [id number] 07/08/2025 8:39 PM EDT [facility] LAB Specimen Type POC Capillary 07/08/2025 8:39 PM EDT [facility] Blood Capillary blood specimen / Unknown 07/08/2025 8:37 PM EDT 07/08/2025 8:39 PM EDT us Kayla Reed MD LAB POINT OF CARE TEST DOCKED DEVICE UNSOLICITED RESULTS Final Result Performing Organization Address City/State/[facility] Co de Phone Number [facility] [address] [place] [address] * (ABNORMAL) POCT glucose meter (07/08/2025 4:42 PM EDT) Pathologist [facility] POCT Glucose 276(H) 74 - 99 mg/dL 07/08/2025 4:45 PM EDT [facility] Comment:Accuracy of [...] to the main labortory for testing. Comment 07/08/2025 4:45 PM EDT [facility] Scrap Worker ID Candy Smith 07/08/2025 4:45 PM EDT [facility] Device ID [id number] 07/08/2025 4:45 PM EDT [facility] Specimen Type POC Capillary 07/08/2025 4:45 PM EDT [facility] Blood Capillary blood specimen / Unknown 07/08/2025 4:42 PM EDT 07/08/2025 4:45 PM EDT Kayla Reed MD LAB POINT OF CARE TEST DOCKED DEVICE UNSOLICITED RESULTS Final Result Performing Organization Address City/[facility] [address]/ZIP Co de Phone Number [facility] [address] [place] [address] * (ABNORMAL) POCT glucose meter (07/08/2025 11:28 AM EDT) POCT Glucose 256(H) 74 - 99 mg/dL 07/08/2025 11:30 AM EDT [facility] Comment:Accuracy of a glucos e result obtained from a capillary whole blood specimen relies upon adequate, non-compromised capillary blood flow. If the capillary glucose result is not consistent with the patient's clinical signs and symptoms, glucose testing should be repeated with either an arterial or venous sample on the glucometer or sent to the main labortory for testing. Comment 07/08/2025 11:30 AM EDT [facility]ALTHCARE LAB Scrap Worker ID Candy Smith 07/08/2025 11:30 AM EDT HEALTHCARE LAB Device ID [id number] 07/08/2025 11:30 AM EDT [facility] Specimen Type POC Capillary 07/08/2025 11:30 AM EDT [facility] Blood Capillary blood specimen / Unknown 07/08/2025 11:28 AM EDT 07/08/2025 11:30 AM EDT Kayla Reed MD LAB POINT OF CARE TEST DOCKED DEVICE UNSOLICITED RESULTS Final Result Performing Organization Address City/[facility] [address]/ZIP Co de Phone Number [facility] [address] [place] [address] * (ABNORMAL) POCT glucose meter (07/08/2025 8:02 AM EDT) POCT Glucose 174(H) 74 - 99 mg/dL 07/08/2025 8:05 AM EDT [facility] Comment:Accuracy of a glucos e result obtained from a capillary whole blood specimen relies upon adequate, non-compromised capillary blood flow. If the capillary glucose result is not consistent with the patient's clinical signs and symptoms, glucose testing should be repeated with either an arterial or venous sample on the glucometer or sent to the main labortory for testing. Comment 07/08/2025 8:05 AM EDT [facility]ALTH[facility]ARE LAB Scrap Worker ID Candy Smith 07/08/2025 8:05 AM EDT HEALTHCARE LAB Device ID [id number] 07/08/2025 8:05 AM EDT [facility] LAB Specimen Type POC Capillary 07/08/2025 8:05 AM EDT [facility] Blood Capillary blood specimen / Unknown 07/08/2025 8:02 AM EDT 07/08/2025 8:05 AM EDT Kayla Reed MD LAB POINT OF CARE TEST DOCKED DEVICE UNSOLICITED RESULTS Final Result Performing Organization Address City/[facility] [address]/ZIP Co de Phone Number [facility] [address] [place] [address] * (ABNORMAL) Ammonia, Plasma (07/08/2025 4:21 AM EDT) Ammonia 146(H) 11 - 51 umol/L 07/08/2025 4:56 AM EDT [facility] Blood Venous blood specimen / Unknown Venipuncture / Unknown 07/08/2025 4:21 AM EDT 07/08/2025 4:27 AM EDT Kayla Reed MD LAB BLOOD ORDERABLES Tari l Result [facility] [address] [place] [address] * (ABNORMAL) Protime-INR (07/08/2025 4:21 AM EDT) Prothrombin Time 22.4(H) 12.0 - 14.3 sec 07/08/2025 4:45 AM EDT [facility] INR 1.9(H) 0.9 - 1.1 07/08/2025 4:45 AM EDT [facility] Blood Venous blood specimen / Unknown Venipuncture / Unknown 07/08/2025 4:21 AM EDT 07/08/2025 4:30 AM EDT [facility] - 07/08/2025 4:45 AM EDT OPTIMAL INR RANGES FOR PATIENT ON ORAL ANTICOAGULANT THERAPY Prevention of venous thromboembolism INR 2.0 to 3.0 In patients with heart disease: Atrial fibrillation INR 2.0 to 3.0 Valvular heart disease INR 2.0 to 3.0 Tissue heart valves INR 2.0 to 3.0 Mechanical prosthetic valves INR 2.5 to 3.5 Prevention of recurrent [place] INR 2.5 to 3.5 us Fabiana Cunningham MD LAB BLOOD ORDERABLES Final Resu lt [facility] [address] [place] [id number] * (ABNORMAL) Comprehensive metabolic panel (07/08/2025 4:21 AM EDT) Glucose, Plasma 172(H) 74 - 99 mg/dL 07/08/2025 5:12 AM EDT [facility] BUN, Plasma 25(H) 8 - 23 mg/dL 07/08/2025 5:12 AM EDT [facility] Creatinine, Plasma 1.16(H) 0.60 - 1.10 mg/dL 07/08/2025 5:12 AM EDT [facility] BUN/Creatinine Ratio 22 07/08/2025 5:12 AM EDT [facility] Sodium, Plasma 135(L) 136 - 145 mmol/L 07/08/2025 5:12 AM EDT [facility] Potassium, Plasma 4.2 3.6 - 4.9 mmol/L 07/08/2025 5:12 AM EDT [facility] Chloride, Plasma 106 97 - 107 mmol/L 07/08/2025 5:12 AM EDT [facility] CO2, Plasma 19(L) 22 - 29 mmol/L 07/08/2025 5:12 AM EDT [facility] Anion Gap 10 6 - 16 mmol/L 07/08/2025 5:12 AM EDT [facility] Total Calcium, Plasma 8.5(L) 8.9 - 10.2 mg/dL 07/08/2025 5:12 AM EDT [facility] Total Protein 6.0(L) 6.3 - 7.9 g/dL 07/08/2025 5:12 AM EDT HEALTHCARE LAB Albumin, Plasma 3.4(L) 3.5 - 5.2 g/dL 07/08/2025 5:12 AM EDT [facility]ALTH[facility] AST, Plasma 38(H) 10 - 35 U/L 07/08/2025 5:12 AM EDT [facility]ALTH[facility] ALT, Plasma 15 10 - 35 U/L 07/08/2025 5:12 AM EDT [facility] Alkaline Phosphatase, Plasma 167(H) 46 - 142 U/L 07/08/2025 5:12 AM EDT [facility] Total Bilirubin, Plasma 2.4(H) 0.2 - 1.1 mg/dL 07/08/2025 5:12 AM EDT [facility] eGFRcr 53.4 mL/min/1.7 3m*2 07/08/2025 5:12 AM EDT [facility] Comment:Reported eGFRcr in m L/min/1.73m2 is based the CKD-EPI 2020 equation that does not use a race coefficient. Blood Venous blood specimen / Unknown Venipuncture / Unknown 07/08/2025 4:21 AM EDT 07/08/2025 4:28 AM EDT us Chilo Morales MD LAB BLOOD ORDERABLES Final Result Performing Organization Address City/[facility] [address]/ZIP Co de Phone Number [facility] [address] [place] [address] * Phosphorus, Plasma (07/08/2025 4:21 AM EDT) Phosphorus, Plasma 3.3 2.5 - 4.5 mg/dL 07/08/2025 5:12 AM EDT [facility] Blood Venous blood specimen / Unknown Venipuncture / Unknown 07/08/2025 4:21 AM EDT 07/08/2025 4:28 AM EDT us Chilo Morales MD LAB BLOOD ORDERABLES Final Result [facility] [address] [place] [address] * Magnesium, Plasma (07/08/2025 4:21 AM EDT) Pathologist [facility] Magnesium, Plasma 1.9 1.9 - 2.4 mg/dL 07/08/2025 5:12 AM EDT [facility] Blood Venous blood specimen / Unknown Venipuncture / Unknown 07/08/2025 4:21 AM EDT 07/08/2025 4:28 AM EDT Chilo Morales MD LAB BLOOD ORDERABLES Final Result [facility] [address] [place] [address] * (ABNORMAL) CBC and Differential (07/08/2025 4:21 AM EDT) Pathologist [facility] WBC Count 2.74(L) 3.70 - 10.30 10*3/uL LAB HEMATOLOGY METHOD 07/08/2025 4:34 AM EDT [facility] RBC Count 2.56(L) 3.90 - 5.20 10*6/uL LAB HEMATOLOGY METHOD 07/08/2025 4:34 AM EDT [facility] HGB 8.0(L) 11.2 - 15.7 g/dL LAB HEMATOLOGY METHOD 07/08/2025 4:34 AM EDT [facility] HCT 23.7(L) 34.0 - 45.0 % LAB HEMATOLOGY METHOD 07/08/2025 4:34 AM EDT [facility] Platelet Count 43(L) 155 - 369 10*3/uL LAB HEMATOLOGY METHOD 07/08/2025 4:34 AM EDT [facility] MCV 93 79 - 98 fL LAB HEMATOLOGY METHOD 07/08/2025 4:34 AM EDT [facility] MCH 31.3 26.0 - 32.0 pg LAB HEMATOLOGY METHOD 07/08/2025 4:34 AM EDT [facility] MCHC 33.8 30.7 - 35.5 g/dL LAB HEMATOLOGY METHOD 07/08/2025 4:34 AM EDT [facility] RDW 15.9(H) 11.5 - 14.5 % LAB HEMATOLOGY METHOD 07/08/2025 4:34 AM EDT [facility] MPV 10.4 8.8 - 12.5 fL LAB HEMATOLOGY METHOD 07/08/2025 4:34 AM EDT [facility] nRBC 0.0 <=0.0 per 100 WBCs LAB HEMATOLOGY METHOD 07/08/2025 4:34 AM EDT [facility] [facility] Differential Type Automated LAB HEMATOLOGY METHOD 07/08/2025 4:34 AM EDT [facility] Neutrophils % 55 % LAB HEMATOLOGY METHOD 07/08/2025 4:34 AM EDT [facility] Lymphocytes % 23 % LAB HEMATOLOGY METHOD 07/08/2025 4:34 AM EDT [facility] Monocytes % 18 % LAB HEMATOLOGY METHOD 07/08/2025 4:34 AM EDT [facility] Eosinophils % 3 % LAB HEMATOLOGY METHOD 07/08/2025 4:34 AM EDT [facility] Basophils % 1 % LAB HEMATOLOGY METHOD 07/08/2025 4:34 AM EDT [facility] Immature Granulocytes % 0 % LAB HEMATOLOGY METHOD 07/08/2025 4:34 AM EDT [facility] Neutrophils Absolute 1.52(L) 1.60 - 6.10 10*3/uL LAB HEMATOLOGY METHOD 07/08/2025 4:34 AM EDT [facility] Lymphocytes Absolute 0.62(L) 1.20 - 3.90 10*3/uL LAB HEMATOLOGY METHOD 07/08/2025 4:34 AM EDT [facility] Monocytes Absolute 0.50 0.30 - 0.90 10*3/uL LAB HEMATOLOGY METHOD 07/08/2025 4:34 AM EDT [facility] Eosinophils Absolute 0.08 0.00 - 0.50 10*3/uL LAB HEMATOLOGY METHOD 07/08/2025 4:34 AM EDT [facility] Basophils Absolute 0.02 0.00 - 0.10 10*3/uL LAB HEMATOLOGY METHOD 07/08/2025 4:34 AM EDT [facility] Immature Granulocytes Absolute 0.00 0.00 - 0.06 10*3/uL LAB HEMATOLOGY METHOD 07/08/2025 4:34 AM EDT [facility] Blood Venous blood specimen / Unknown Venipuncture / Unknown 07/08/2025 4:21 AM EDT 07/08/2025 4:30 AM EDT [facility]ALTH[facility]ARE LAB - 07/08/2025 4:34 AM EDT Therapeutic decision making should be based on absolute values, rather than percentages. us Chilo Morales MD LAB BLOOD ORDERABLES Final Result Performing Organization Address City/[facility] [address]/[facility] Co de Phone Number [facility]ALTH[facility]ARE LAB [address] [place] [address] * (ABNORMAL) POCT glucose meter (07/07/2025 8:29 PM EDT) POCT Glucose 246(H) 74 - 99 mg/dL 07/07/2025 8:30 PM EDT [facility] Comment:Accuracy of a glucos e result obtained from a capillary whole blood specimen relies upon adequate, non-compromised capillary blood flow. If the capillary glucose result is not consistent with the patient's clinical signs and symptoms, glucose testing should be repeated with either an arterial or venous sample on the glucometer or sent to the main labortory for testing. Comment 07/07/2025 8:30 PM EDT [facility] Scrap Worker ID Love Gore 8:30 PM EDT [facility] Device ID [id number] 07/07/2025 8:30 PM EDT [facility] Specimen Type POC Capillary 07/07/2025 8:30 PM EDT [facility] Blood Capillary blood specimen / Unknown 07/07/2025 8:29 PM EDT 07/07/2025 8:30 PM EDT Kayla Reed MD LAB POINT OF CARE TEST DOCKED DEVICE UNSOLICITED RESULTS Final Result Performing Organization Address City/[facility] [address]/[facility] Co de Phone Number [facility]ARE [facility] [address] [place] [address] * (ABNORMAL) POCT glucose meter (07/07/2025 4:43 PM EDT) POCT Glucose 255(H) 74 - 99 mg/dL 07/07/2025 4:44 PM EDT [facility] Comment:Accuracy of a glucos e result obtained from a capillary whole blood specimen relies upon adequate, non-compromised capillary blood flow. If the capillary glucose result is not consistent with the patient's clinical signs and symptoms, glucose testing should be repeated with either an arterial or venous sample on the glucometer or sent to the main labortory for testing. Comment 07/07/2025 4:44 PM EDT [facility] Scrap Worker ID Allen Titus 07/07/2025 4:44 PM EDT [facility] Device ID [id number] 07/07/2025 4:44 PM EDT [facility] Specimen Type POC Capillary 07/07/2025 4:44 PM EDT [facility] Blood Capillary blood specimen / Unknown 07/07/2025 4:43 PM EDT 07/07/2025 4:44 PM EDT Kayla Reed MD LAB POINT OF CARE TEST DOCKED DEVICE UNSOLICITED RESULTS Final Result Performing Organization Address City/[facility] [address]/[facility] Co de Phone Number [facility] [address] [place] [address] * (ABNORMAL) POCT glucose meter (07/07/2025 1:36 PM EDT) POCT Glucose 213(H) 74 - 99 mg/dL 07/07/2025 1:37 PM EDT [facility] Comment:Accuracy of [...] to the main labortory for testing. Comment 07/07/2025 1:37 PM EDT [facility] Scrap Worker ID Allen Titus 07/07/2025 1:37 PM EDT [facility] Device ID [id number] 07/07/2025 1:37 PM EDT [facility] Specimen Type POC Capillary 07/07/2025 1:37 PM EDT [facility] Blood Capillary blood specimen / Unknown 07/07/2025 1:36 PM EDT 07/07/2025 1:37 PM EDT Kayla Reed MD LAB POINT OF CARE TEST DOCKED DEVICE UNSOLICITED RESULTS Final Result Performing Organization Address City/[facility] [address]/ZIP Co de Phone Number [facility]ARE [facility] [address] [place] [address] * (ABNORMAL) POCT glucose meter (07/07/2025 11:54 AM EDT) POCT Glucose 198(H) 74 - 99 mg/dL 07/07/2025 11:56 AM EDT [facility] Comment:Accuracy of a glucos e result obtained from a capillary whole blood specimen relies upon adequate, non-compromised capillary blood flow. If the capillary glucose result is not consistent with the patient's clinical signs and symptoms, glucose testing should be repeated with either an arterial or venous sample on the glucometer or sent to the main labortory for testing. Comment 07/07/2025 11:56 AM EDT [facility] Scrap Worker ID Allen Titus 07/07/2025 11:56 AM EDT [facility] LAB Device ID [id number] 07/07/2025 11:56 AM EDT [facility] Specimen Type POC Capillary 07/07/2025 11:56 AM EDT [facility] Blood Capillary blood specimen / Unknown 07/07/2025 11:54 AM EDT 07/07/2025 11:56 AM EDT us Kayla Reed MD LAB POINT OF CARE TEST DOCKED DEVICE UNSOLICITED RESULTS Final Result Performing Organization Address City/State/[facility] Co de Phone Number [facility] [address] [place] [address] * (ABNORMAL) POCT glucose meter (07/07/2025 8:01 AM EDT) Pathologist [facility] POCT Glucose 141(H) 74 - 99 mg/dL 07/07/2025 8:02 AM EDT [facility] Comment:Accuracy of a glucos e result obtained from a capillary whole blood specimen relies upon adequate, non-compromised capillary blood flow. If the capillary glucose result is not consistent with the patient's clinical signs and symptoms, glucose testing should be repeated with either an arterial or venous sample on the glucometer or sent to the main labortory for testing. Comment 07/07/2025 8:02 AM EDT [facility] Scrap Worker ID Allen Titus 07/07/2025 8:02 AM EDT [facility] Device ID [id number] 07/07/2025 8:02 AM EDT [facility] Specimen Type POC Capillary 07/07/2025 8:02 AM EDT [facility] Blood Capillary blood specimen / Unknown 07/07/2025 8:01 AM EDT 07/07/2025 8:02 AM EDT Kayla Reed MD LAB POINT OF CARE TEST DOCKED DEVICE UNSOLICITED RESULTS Final Result Performing Organization Address City/[facility] [address]/[facility] Co de Phone Number [facility] [address] [place] [address] * (ABNORMAL) Protime-INR (07/07/2025 3:30 AM EDT) Prothrombin Time 22.9(H) 12.0 - 14.3 sec 07/07/2025 4:18 AM EDT [facility] INR 2.0(H) 0.9 - 1.1 07/07/2025 4:18 AM EDT [facility] Blood Venous blood specimen / Unknown Venipuncture / Unknown 07/07/2025 3:30 AM EDT 07/07/2025 3:54 AM EDT Narrative [facility] - 07/07/2025 4:18 AM EDT OPTIMAL INR RANGES FOR PATIENT ON ORAL ANTICOAGULANT THERAPY Prevention of venous thromboembolism INR 2.0 to 3.0 In patients with heart disease: Atrial fibrillation INR 2.0 to 3.0 Valvular heart disease INR 2.0 to 3.0 Tissue heart valves INR 2.0 to 3.0 Mechanical prosthetic valves INR 2.5 to 3.5 Prevention of recurrent [place] INR 2.5 to 3.5 us Fabiana Cunningham MD LAB BLOOD ORDERABLES Final Resu lt Performing Organization Address City/[facility] [address]/ZIP Co de Phone Number [facility] [address] [place] [address] * (ABNORMAL) Comprehensive metabolic panel (07/07/2025 3:30 AM EDT) Glucose, Plasma 151(H) 74 - 99 mg/dL 07/07/2025 4:21 AM EDT [facility] BUN, Plasma 26(H) 8 - 23 mg/dL 07/07/2025 4:21 AM EDT [facility] Creatinine, Plasma 1.20(H) 0.60 - 1.10 mg/dL 07/07/2025 4:21 AM EDT [facility] BUN/Creatinine Ratio 07/07/2025 4:21 AM EDT [facility] Sodium, Plasma 140 136 - 145 mmol/L 07/07/2025 4:21 AM [facility] Potassium, Plasma 4.0 3.6 - 4.9 mmol/L 07/07/2025 4:21 AM [facility] Chloride, Plasma 110(H) 97 - 107 mmol/L 07/07/2025 4:21 AM T [facility] CO2, Plasma 19(L) 22 - 29 mmol/L 07/07/2025 4:21 AM EDT [facility] Anion Gap 11 6 - 16 mmol/L 07/07/2025 4:21 AM [facility] Total Calcium, Plasma 8.7(L) 8.9 - 10.2 mg/dL 07/07/2025 4:21 AM [facility] Total Protein 5.9(L) 6.3 - 7.9 g/dL 07/07/2025 4:21 AM [facility] Albumin, Plasma 3.5 3.5 - 5.2 g/dL 07/07/2025 4:21 AM T [facility] AST, Plasma 31 10 - 35 U/L 07/07/2025 4:21 AM [facility] ALT, Plasma 13 10 - 35 U/L 07/07/2025 4:21 AM [facility] Alkaline Phosphatase, Plasma 144(H) 46 - 142 U/L 07/07/2025 4:21 AM [facility] Total Bilirubin, Plasma 2.9(H) 0.2 - 1.1 mg/dL 07/07/2025 4:21 AM [facility] eGFRcr 51.3 mL/min/1.7 3m*2 07/07/2025 4:21 AM [facility] Comment:Reported eGFRcr in m L/min/1.73m2 is based the CKD-EPI 2020 equation that does not use a race coefficient. Blood Venous blood specimen / Unknown Venipuncture / Unknown 07/07/2025 3:30 AM EDT 07/07/2025 3:53 AM EDT us Chilo Morales MD LAB BLOOD ORDERABLES Final Result Performing Organization Address [facility] [address]/[facility] de Phone Number HEALTHCARE LAB [address] [place] [address] * Phosphorus, Plasma (07/07/2025 3:30 AM EDT) Phosphorus, Plasma 3.6 2.5 - 4.5 mg/dL 07/07/2025 4:21 AM EDT [facility] Blood Venous blood specimen / Unknown Venipuncture / Unknown 07/07/2025 3:30 AM EDT 07/07/2025 3:53 AM EDT us Chilo Morales MD LAB BLOOD ORDERABLES Final Result Performing Organization Address [facility] Phone Number [facility] [address] [place] [address] * Magnesium, Plasma (07/07/2025 3:30 AM EDT) Magnesium, Plasma 1.9 1.9 - 2.4 mg/dL 07/07/2025 4:21 AM EDT [facility] Blood Venous blood specimen / Unknown Venipuncture / Unknown 07/07/2025 3:30 AM EDT 07/07/2025 3:53 AM EDT us Chilo Morales MD LAB BLOOD ORDERABLES Final Result Performing Organization Address [facility] de Phone Number [facility] [address] [place] [address] * (ABNORMAL) CBC and Differential (07/07/2025 3:30 AM EDT) WBC Count 2.65(L) 3.70 - 10.30 10*3/uL LAB HEMATOLOGY METHOD 07/07/2025 4:00 AM EDT [facility] RBC Count 2.56(L) 3.90 - 5.20 10*6/uL LAB HEMATOLOGY METHOD 07/07/2025 4:00 AM EDT [facility] HGB 8.0(L) 11.2 - 15.7 g/dL LAB HEMATOLOGY METHOD 07/07/2025 4:00 AM EDT [facility] HCT 23.8(L) 34.0 - 45.0 % LAB HEMATOLOGY METHOD 07/07/2025 4:00 AM EDT [facility] Platelet Count 46(L) 155 - 369 10*3/uL LAB HEMATOLOGY METHOD 07/07/2025 4:00 AM EDT [facility] MCV 93 79 - 98 fL LAB HEMATOLOGY METHOD 07/07/2025 4:00 AM EDT [facility] MCH 31.3 26.0 - 32.0 pg LAB HEMATOLOGY METHOD 07/07/2025 4:00 AM EDT [facility] MCHC 33.6 30.7 - 35.5 g/dL LAB HEMATOLOGY METHOD 07/07/2025 4:00 AM EDT [facility] RDW 15.9(H) 11.5 - 14.5 % LAB HEMATOLOGY METHOD 07/07/2025 4:00 AM EDT [facility] MPV 10.9 8.8 - 12.5 fL LAB HEMATOLOGY METHOD 07/07/2025 4:00 AM EDT [facility] nRBC 0.0 <=0.0 per 100 WBCs LAB HEMATOLOGY METHOD 07/07[facility]2025 [facility] Differential Type Automated LAB HEMATOLOGY METHOD 07/07/2025 4:00 AM EDT [facility] Neutrophils % 57 % LAB HEMATOLOGY METHOD 07/07/2025 4:[facility] Lymphocytes % 24 % LAB HEMATOLOGY METHOD 07/07/2025 4:00 AM EDT [facility] Monocytes % 16 % LAB HEMATOLOGY METHOD 07/07/2025 4:00 AM EDT [facility] Eosinophils % 3 % LAB HEMATOLOGY METHOD 07/07/2025 4:00 AM EDT [facility] Basophils % 0 % LAB HEMATOLOGY METHOD 07/07/2025 4:00 AM EDT [facility] Immature Granulocytes % 0 % LAB HEMATOLOGY METHOD 07/07/2025 4:00 AM EDT [facility] Neutrophils Absolute 1.48(L) 1.60 - 6.10 10*3/uL LAB HEMATOLOGY METHOD 07/07/2025 4:00 AM EDT [facility] Lymphocytes Absolute 0.63(L) 1.20 - 3.90 10*3/uL LAB HEMATOLOGY METHOD 07/07/2025 4:00 AM EDT [facility] Monocytes Absolute 0.43 0.30 - 0.90 10*3/uL LAB HEMATOLOGY METHOD 07/07/2025 4:00 AM EDT [facility]ALTH[facility]ARE LAB Eosinophils Absolute 0.09 0.00 - 0.50 10*3/uL LAB HEMATOLOGY METHOD 07/07/2025 4:00 AM EDT [facility] Basophils Absolute 0.01 0.00 - 0.10 10*3/uL LAB HEMATOLOGY METHOD 07/07/2025 4:00 AM EDT [facility] Immature Granulocytes Absolute 0.01 0.00 - 0.06 10*3/uL LAB HEMATOLOGY METHOD 07/07/2025 4:00 AM EDT [facility] Blood Venous blood specimen / Unknown Venipuncture / Unknown 07/07/2025 3:30 AM EDT 07/07/2025 3:54 AM EDT Narrative HEALTHCARE LAB - 07/07/2025 4:00 AM EDT Therapeutic decision making should be based on absolute values, rather than percentages. Chilo Morales MD LAB BLOOD ORDERABLES Final Result [facility] [address] [place] [address] * (ABNORMAL) POCT glucose meter (07/06/2025 8:03 PM EDT) [facility] POCT Glucose 185(H) 74 - 99 mg/dL 07/06/2025 8:05 PM EDT [facility] Comment:Accuracy of [...] to the main labortory for testing. Comment 07/06/2025 8:05 PM EDT [facility] LAB Scrap Worker ID Camelia Rodriguez 07/06/2025 8:05 PM EDT [facility] LAB Device ID [id number] 07/06/2025 8:05 PM EDT [facility] LAB Specimen Type POC Capillary 07/06/2025 8:05 PM EDT [facility] Blood Capillary blood specimen / Unknown 07/06/2025 8:03 PM EDT 07/06/2025 8:05 PM EDT Kayla Reed MD LAB POINT OF CARE TEST DOCKED DEVICE UNSOLICITED RESULTS Final Result Performing Organization Address [facility] de Phone Number HEALTHCARE LAB [address] [place] [address] * (ABNORMAL) POCT glucose meter (07/06/2025 4:54 PM EDT) Pathologist [facility] POCT Glucose 176(H) 74 - 99 mg/dL 07/06/2025 4:56 PM EDT [facility] Comment:Accuracy of [...] to the main labortory for testing. Comment 07/06/2025 4:56 PM EDT [facility] LAB Scrap Worker ID Fabiana Wilkins 07/06/20 4:56 PM EDT [facility]ALTH[facility]ARE LAB Device ID [id number] 07/06/2025 4:56 PM EDT [facility] LAB Specimen Type POC Capillary 07/06/2025 4:56 PM EDT [facility] Blood Capillary blood specimen / Unknown 07/06/2025 4:54 PM EDT 07/06/2025 4:56 PM EDT Kayla Reed MD LAB POINT OF CARE TEST DOCKED DEVICE UNSOLICITED RESULTS Final Result Performing Organization Address City/[facility] [address]/[facility] Co de Phone Number [facility] [address] [place] [address] * (ABNORMAL) POCT glucose meter (07/06/2025 11:37 AM EDT) Pathologist [facility] POCT Glucose 165(H) 74 - 99 mg/dL 07/06/2025 11:39 AM EDT [facility] Comment:Accuracy of a glucos e result obtained from a capillary whole blood specimen relies upon adequate, non-compromised capillary blood flow. If the capillary glucose result is not consistent with the patient's clinical signs and symptoms, glucose testing should be repeated with either an arterial or venous sample on the glucometer or sent to the main labortory for testing. Comment 07/06/2025 11:39 AM EDT [facility] Scrap Worker ID Fabiana Wilkins 07/06/20 11:39 AM EDT [facility]ALTH[facility]ARE LAB Device ID [id number] 07/06/2025 11:39 AM EDT [facility] Specimen Type POC Capillary 07/06/2025 11:39 AM EDT [facility] Blood Capillary blood specimen / Unknown 07/06/2025 11:37 AM EDT 07/06/2025 11:39 AM EDT Kayla Reed MD LAB POINT OF CARE TEST DOCKED DEVICE UNSOLICITED RESULTS Final Result Performing Organization Address City/[facility] Co de Phone Number [facility]ALTHCARE LAB [address] [place] [address] * (ABNORMAL) POCT glucose meter (07/06/2025 8:19 AM EDT) [facility] POCT Glucose 128(H) 74 - 99 mg/dL 07/06/2025 8:23 AM EDT [facility] Comment:Accuracy of a glucos e result obtained from a capillary whole blood specimen relies upon adequate, non-compromised capillary blood flow. If the capillary glucose result is not consistent with the patient's clinical signs and symptoms, glucose testing should be repeated with either an arterial or venous sample on the glucometer or sent to the main labortory for testing. Comment 07/06/2025 8:23 AM EDT [facility]ALTH[facility]ARE LAB Scrap Worker ID Fabiana Wilkins 07/06/20 8:23 AM EDT [facility]ARE LAB Device ID [id number] 07/06/2025 8:23 AM EDT [facility] Specimen Type POC Capillary 07/06/2025 8:23 AM EDT [facility] Blood Capillary blood specimen / Unknown 07/06/2025 8:19 AM EDT 07/06/2025 8:23 AM EDT us Kayla Reed MD LAB POINT OF CARE TEST DOCKED DEVICE UNSOLICITED RESULTS Final Result [facility] [address] [place] [address] * (ABNORMAL) Protime-INR (07/06/2025 2:31 AM EDT) Prothrombin Time 24.2(H) 12.0 - 14.3 sec 07/06/2025 2:59 AM EDT [facility] INR 2.1(H) 0.9 - 1.1 07/06/2025 2:59 AM EDT [facility] Blood Venous blood specimen / Unknown Venipuncture / Unknown 07/06/2025 2:31 AM EDT 07/06/2025 2:36 AM EDT Narrative HEALTHCARE LAB - 07/06/2025 2:59 AM EDT OPTIMAL INR RANGES FOR PATIENT ON ORAL ANTICOAGULANT THERAPY Prevention of venous thromboembolism INR 2.0 to 3.0 In patients with heart disease: Atrial fibrillation INR 2.0 to 3.0 Valvular heart disease INR 2.0 to 3.0 Tissue heart valves INR 2.0 to 3.0 Mechanical prosthetic valves INR 2.5 to 3.5 Prevention of recurrent [place] INR 2.5 to 3.5 us Fabiana Cunningham MD LAB BLOOD ORDERABLES Final Resu lt [facility] [address] [place] [address] * (ABNORMAL) Comprehensive metabolic panel (07/06/2025 2:31 AM EDT) Glucose, Plasma 128(H) 74 - 99 mg/dL 07/06/2025 2:58 AM EDT [facility] BUN, Plasma 25(H) 8 - 23 mg/dL 07/06/2025 2:58 AM EDT [facility] Creatinine, Plasma 1.18(H) 0.60 - 1.10 mg/dL 07/06/2025 2:58 AM EDT [facility] BUN/Creatinine Ratio 21 07/06/2025 2:58 AM EDT [facility] Sodium, Plasma 141 136 - 145 mmol/L 07/06/2025 2:58 AM EDT [facility] Potassium, Plasma 4.4 3.6 - 4.9 mmol/L 07/06/2025 2:58 AM EDT [facility] Chloride, Plasma 111(H) 97 - 107 mmol/L 07/06/2025 2:58 AM EDT [facility] CO2, Plasma 17(L) 22 - 29 mmol/L 07/06/2025 2:58 AM EDT [facility] Anion Gap 13 6 - 16 mmol/L 07/06/2025 2:58 AM EDT [facility] Total Calcium, Plasma 8.6(L) 8.9 - 10.2 mg/dL 07/06/2025 2:58 AM EDT [facility] Total Protein 5.9(L) 6.3 - 7.9 g/dL 07/06/2025 2:58 AM EDT [facility] Albumin, Plasma 3.6 3.5 - 5.2 g/dL 07/06/2025 2:58 AM EDT [facility] AST, Plasma 36(H) 10 - 35 U/L 07/06/2025 2:58 AM EDT [facility] Comment:Hemolyzed, result ma y be falsely increased. ALT, Plasma 13 10 - 35 U/L 07/06/2025 2:58 AM EDT [facility] Alkaline Phosphatase, Plasma 129 46 - 142 U/L 07/06/2025 2:58 AM EDT [facility] Total Bilirubin, Plasma 3.2(H) 0.2 - 1.1 mg/dL 07/06/2025 2:58 AM EDT [facility] eGFRcr 52.3 mL/min/1.7 3m*2 07/06/2025 2:58 AM EDT [facility] Comment:Reported eGFRcr in m L/min/1.73m2 is based the CKD-EPI 2020 equation that does not use a race coefficient. Blood Venous blood specimen / Unknown Venipuncture / Unknown 07/06/2025 2:31 AM EDT 07/06/2025 2:36 AM EDT us Chilo Morales MD LAB BLOOD ORDERABLES Final Result [facility] [address] [place] [address] * Phosphorus, Plasma (07/06/2025 2:31 AM EDT) Phosphorus, Plasma 3.1 2.5 - 4.5 mg/dL 07/06/2025 2:58 AM EDT [facility]ALTH[facility] Blood Venous blood specimen / Unknown Venipuncture / Unknown 07/06/2025 2:31 AM EDT 07/06/2025 2:36 AM EDT Chilo Morales MD LAB BLOOD ORDERABLES Final Result Performing Organization Address [facility] Co de Phone Number [facility] [address] [place] [address] * (ABNORMAL) Magnesium, Plasma (07/06/2025 2:31 AM EDT) Pathologist [facility] Magnesium, Plasma 1.7(L) 1.9 - 2.4 mg/dL 07/06/2025 2:58 AM EDT [facility] Blood Venous blood specimen / Unknown Venipuncture / Unknown 07/06/2025 2:31 AM EDT 07/06/2025 2:36 AM EDT Chilo Morales MD LAB BLOOD ORDERABLES Final Result Performing Organization Address [facility] de Phone Number [facility] [address] [place] [address] * (ABNORMAL) CBC and Differential (07/06/2025 2:31 AM EDT) Pathologist [facility] WBC Count 2.99(L) 3.70 - 10.30 10*3/uL LAB HEMATOLOGY METHOD 07/06/2025 2:53 AM EDT [facility] RBC Count 2.51(L) 3.90 - 5.20 10*6/uL LAB HEMATOLOGY METHOD 07/06/2025 2:53 AM EDT [facility] HGB 7.8(L) 11.2 - 15.7 g/dL LAB HEMATOLOGY METHOD 07/06/2025 2:53 AM EDT [facility] HCT 23.6(L) 34.0 - 45.0 % LAB HEMATOLOGY METHOD 07/06/2025 2:53 AM EDT [facility] Platelet Count 49(L) 155 - 369 10*3/uL LAB HEMATOLOGY METHOD 07/06/2025 2:53 AM EDT [facility] MCV 94 79 - 98 fL LAB HEMATOLOGY METHOD 07/06/2025 2:53 AM EDT [facility] Comment:Results inconsistent with previous lab findings. MCH 31.1 26.0 - 32.0 pg LAB HEMATOLOGY METHOD 07/06/2025 2:53 AM EDT [facility] MCHC 33.1 30.7 - 35.5 g/dL LAB HEMATOLOGY METHOD 07/06/2025 2:53 AM EDT [facility] RDW 15.8(H) 11.5 - 14.5 % LAB HEMATOLOGY METHOD 07/06/2025 2:53 AM EDT [facility] MPV 11.7 8.8 - 12.5 fL LAB HEMATOLOGY METHOD 07/06/2025 2:53 AM EDT [facility] nRBC 0.0 <=0.0 per 100 WBCs LAB HEMATOLOGY METHOD 07/06/2025 2:53 AM EDT [facility] Differential Type Automated LAB HEMATOLOGY METHOD 07/06/2025 2:53 AM EDT [facility] Neutrophils % 58 % LAB HEMATOLOGY METHOD 07/06/2025 2:53 AM EDT [facility] Lymphocytes % 22 % LAB HEMATOLOGY METHOD 07/06/2025 2:53 AM EDT [facility] Monocytes % 16 % LAB HEMATOLOGY METHOD 07/06/2025 2:53 AM EDT [facility] Eosinophils % 3 % LAB HEMATOLOGY METHOD 07/06/2025 2:53 AM EDT [facility] Basophils % 1 % LAB HEMATOLOGY METHOD 07/06/2025 2:53 AM EDT [facility] Immature Granulocytes % 0 % LAB HEMATOLOGY METHOD 07/06/2025 2:53 AM EDT [facility] Neutrophils Absolute 1.73 1.60 - 6.10 10*3/uL LAB HEMATOLOGY METHOD 07/06/2025 2:53 AM EDT [facility] Lymphocytes Absolute 0.67(L) 1.20 - 3.90 10*3/uL LAB HEMATOLOGY METHOD 07/06/2025 2:53 AM EDT [facility] Monocytes Absolute 0.47 0.30 - 0.90 10*3/uL LAB HEMATOLOGY METHOD 07/06/2025 2:53 AM EDT [facility] Eosinophils Absolute 0.08 0.00 - 0.50 10*3/uL LAB HEMATOLOGY METHOD 07/06/2025 2:53 AM EDT [facility] Basophils Absolute 0.03 0.00 - 0.10 10*3/uL LAB HEMATOLOGY METHOD 07/06/2025 2:53 AM EDT [facility] Immature Granulocytes Absolute 0.01 0.00 - 0.06 10*3/uL LAB HEMATOLOGY METHOD 07/06/2025 2:53 AM EDT [facility] Blood Venous blood specimen / Unknown Venipuncture / Unknown 07/06/2025 2:31 AM EDT 07/06/2025 2:36 AM EDT Narrative [facility] - 07/06/2025 2:53 AM EDT Therapeutic decision making should be based on absolute values, rather than percentages. us Chilo Morales MD LAB BLOOD ORDERABLES Final Result Performing Organization Address City/[facility] [address]/[facility] Co de Phone Number [facility] [address] [place] [address] * (ABNORMAL) POCT glucose meter (07/05/2025 8:06 PM EDT) POCT Glucose 162(H) 74 - 99 mg/dL 07/05/2025 8:08 PM EDT [facility] Comment:Accuracy of a glucos e result obtained from a capillary whole blood specimen relies upon adequate, non-compromised capillary blood flow. If the capillary glucose result is not consistent with the patient's clinical signs and symptoms, glucose testing should be repeated with either an arterial or venous sample on the glucometer or sent to the main labortory for testing. Comment 07/05/2025 8:08 PM EDT [facility] Scrap Worker ID Camelia Rodriguez 07/05/2025 8:08 PM EDT [facility] LAB Device ID [id number] 07/05/2025 8:08 PM EDT [facility] Specimen Type POC Capillary 07/05/2025 8:08 PM EDT [facility] Blood Capillary blood specimen / Unknown 07/05/2025 8:06 PM EDT 07/05/2025 8:08 PM EDT us Kayal Reed MD LAB POINT OF CARE TEST DOCKED DEVICE UNSOLICITED RESULTS Final Result Performing Organization Address City/[facility] [address]/ZIP Co de Phone Number [facility] [address] [place] [address] * (ABNORMAL) POCT glucose meter (07/05/2025 4:46 PM EDT) [facility] POCT Glucose 171(H) 74 - 99 mg/dL 07/05/2025 4:48 PM EDT [facility] Comment:Accuracy of [...] to the main labortory for testing. Comment 07/05/2025 4:48 PM EDT [facility] Scrap Worker ID Aditya Fieldrian 4:48 PM EDT [employer] [facility] LAB Device ID [id number] 07/05/2025 4:48 PM EDT [facility] Specimen Type POC Capillary 07/05/2025 4:48 PM EDT [facility] Blood Capillary blood specimen / Unknown 07/05/2025 4:46 PM EDT 07/05/2025 4:48 PM EDT Fabiana Cunningham MD LAB POINT OF CARE TE ST DOCKED DEVICE UNSOLICITED RESULTS Final Result [facility] [address] [place] [address] * (ABNORMAL) POCT glucose meter (07/05/2025 11:53 AM EDT) [facility] POCT Glucose 192(H) 74 - 99 mg/dL 07/05/2025 11:54 AM EDT [facility] Comment:Accuracy of a glucos e result obtained from a capillary whole blood specimen relies upon adequate, non-compromised capillary blood flow. If the capillary glucose result is not consistent with the patient's clinical signs and symptoms, glucose testing should be repeated with either an arterial or venous sample on the glucometer or sent to the main labortory for testing. Comment 07/05/2025 11:54 AM EDT [facility] Scrap Worker ID Aditya Fieldrian 11:54 AM EDT [facility] Device ID [id number] 07/05/2025 11:54 AM EDT [facility] Specimen Type POC Capillary 07/05/2025 11:54 AM EDT [facility] Blood Capillary blood specimen / Unknown 07/05/2025 11:53 AM EDT 07/05/2025 11:54 AM EDT Fabiana Cunningham MD LAB POINT OF CARE TE ST DOCKED DEVICE UNSOLICITED RESULTS Final Result Performing Organization Address City/[facility] [address]/[facility] Co de Phone Number [facility] [address] [place] [address] * (ABNORMAL) POCT glucose meter (07/05/2025 7:52 AM EDT) POCT Glucose 132(H) 74 - 99 mg/dL 07/05/2025 7:54 AM EDT [facility] Comment:Accuracy of a glucos e result obtained from a capillary whole blood specimen relies upon adequate, non-compromised capillary blood flow. If the capillary glucose result is not consistent with the patient's clinical signs and symptoms, glucose testing should be repeated with either an arterial or venous sample on the glucometer or sent to the main labortory for testing. Comment 07/05/2025 7:54 AM EDT [facility] Scrap Worker ID Fredy Field 7:54 AM EDT [facility] LAB Device ID [id number] 07/05/2025 7:54 AM EDT [facility] Specimen Type POC Capillary 07/05/2025 7:54 AM EDT [facility] Blood Capillary blood specimen / Unknown 07/05/2025 7:52 AM EDT 07/05/2025 7:54 AM EDT us Fabiana Cunningham MD LAB POINT OF CARE TE ST DOCKED DEVICE UNSOLICITED RESULTS Final Result Performing Organization Address City/[facility] [address]/ZIP Co de Phone Number [facility] [address] [place] [address] * (ABNORMAL) Protime-INR (07/05/2025 4:01 AM EDT) Prothrombin Time 24.0(H) 12.0 - 14.3 sec 07/05/2025 4:38 AM EDT [facility] INR 2.1(H) 0.9 - 1.1 07/05/2025 4:38 AM EDT [facility] Blood Venous blood specimen / Unknown Venipuncture / Unknown 07/05/2025 4:01 AM EDT 07/05/2025 4:24 AM EDT Narrative [facility] - 07/05/2025 4:38 AM EDT OPTIMAL INR RANGES FOR PATIENT ON ORAL ANTICOAGULANT THERAPY Prevention of venous thromboembolism INR 2.0 to 3.0 In patients with heart disease: Atrial fibrillation INR 2.0 to 3.0 Valvular heart disease INR 2.0 to 3.0 Tissue heart valves INR 2.0 to 3.0 Mechanical prosthetic valves INR 2.5 to 3.5 Prevention of recurrent [place] INR 2.5 to 3.5 us Fabiana Cunningham MD LAB BLOOD ORDERABLES Final Resu lt [facility] [address] [place] [id number] * (ABNORMAL) Comprehensive metabolic panel (07/05/2025 4:01 AM EDT) Pathologist [facility] Glucose, Plasma 147(H) 74 - 99 mg/dL 07/05/2025 4:48 AM EDT [facility] BUN, Plasma 28(H) 8 - 23 mg/dL 07/05/2025 4:48 AM EDT [facility] Creatinine, Plasma 1.25(H) 0.60 - 1.10 mg/dL 07/05/2025 4:48 AM EDT [facility] BUN/Creatinine Ratio 22 07/05/2025 4:48 AM EDT [facility] Sodium, Plasma 142 136 - 145 mmol/L 07/05/2025 4:48 AM EDT [facility] Potassium, Plasma 4.2 3.6 - 4.9 mmol/L 07/05/2025 4:48 AM EDT [facility] Chloride, Plasma 115(H) 97 - 107 mmol/L 07/05/2025 4:48 AM EDT [facility] CO2, Plasma 16(L) 22 - 29 mmol/L 07/05/2025 4:48 AM EDT [facility] Anion Gap 11 6 - 16 mmol/L 07/05/2025 4:48 AM EDT [facility] Total Calcium, Plasma 8.4(L) 8.9 - 10.2 mg/dL 07/05/2025 4:48 AM EDT [facility] Total Protein 6.0(L) 6.3 - 7.9 g/dL 07/05/2025 4:48 AM EDT [facility] Albumin, Plasma 3.7 3.5 - 5.2 g/dL 07/05/2025 4:48 AM EDT [facility] AST, Plasma 31 10 - 35 U/L 07/05/2025 4:48 AM EDT [facility] ALT, Plasma 11 10 - 35 U/L 07/05/2025 4:48 AM EDT [facility] Alkaline Phosphatase, Plasma 128 46 - 142 U/L 07/05/2025 4:48 AM EDT [facility] Total Bilirubin, Plasma 3.1(H) 0.2 - 1.1 mg/dL 07/05/2025 4:48 AM EDT [facility] eGFRcr 48.8 mL/min/1.7 3m*2 07/05/2025 4:48 AM EDT [facility] Comment:Reported eGFRcr in m L/min/1.73m2 is based the CKD-EPI 2020 equation that does not use a race coefficient. Blood Venous blood specimen / Unknown Venipuncture / Unknown 07/05/2025 4:01 AM EDT 07/05/2025 4:24 AM EDT Chilo Morales MD LAB BLOOD ORDERABLES Final Result Performing Organization Address City/State/[facility] Co de Phone Number [facility] [address] [place] [address] * Phosphorus, Plasma (07/05/2025 4:01 AM EDT) Phosphorus, Plasma 2.9 2.5 - 4.5 mg/dL 07/05/2025 4:48 AM EDT [facility] Blood Venous blood specimen / Unknown Venipuncture / Unknown 07/05/2025 4:01 AM EDT 07/05/2025 4:24 AM EDT us Chilo Morales MD LAB BLOOD ORDERABLES Final Result [facility] [address] [place] [address] * (ABNORMAL) Magnesium, Plasma (07/05/2025 4:01 AM EDT) Pathologist [facility] Magnesium, Plasma 1.8(L) 1.9 - 2.4 mg/dL 07/05/2025 4:48 AM EDT [facility] Blood Venous blood specimen / Unknown Venipuncture / Unknown 07/05/2025 4:01 AM EDT 07/05/2025 4:24 AM EDT Chilo Morales MD LAB BLOOD ORDERABLES Final Result Performing Organization Address [facility] [address]/[facility] Co de Phone Number [facility] [address] [place] [address] * (ABNORMAL) CBC and Differential (07/05/2025 4:01 AM EDT) Pathologist [facility] WBC Count 2.91(L) 3.70 - 10.30 10*3/uL LAB HEMATOLOGY METHOD 07/05/2025 4:35 AM EDT [facility] RBC Count 2.55(L) 3.90 - 5.20 10*6/uL LAB HEMATOLOGY METHOD 07/05/2025 4:35 AM EDT [facility] HGB 8.0(L) 11.2 - 15.7 g/dL LAB HEMATOLOGY METHOD 07/05/2025 4:35 AM EDT [facility] HCT 25.3(L) 34.0 - 45.0 % LAB HEMATOLOGY METHOD 07/05/2025 4:35 AM EDT [facility] Platelet Count 46(L) 155 - 369 10*3/uL LAB HEMATOLOGY METHOD 07/05/2025 4:35 AM EDT [facility] MCV 99(H) 79 - 98 fL LAB HEMATOLOGY METHOD 07/05/2025 4:35 AM EDT [facility] Comment:Results inconsistent with previous lab findings. MCH 31.4 26.0 - 32.0 pg LAB HEMATOLOGY METHOD 07/05/2025 4:35 AM EDT [facility] MCHC 31.6 30.7 - 35.5 g/dL LAB HEMATOLOGY METHOD 07/05/2025 4:35 AM EDT [facility] RDW 15.9(H) 11.5 - 14.5 % LAB HEMATOLOGY METHOD 07/05/2025 4:35 AM EDT [facility] MPV 11.4 8.8 - 12.5 fL LAB HEMATOLOGY METHOD 07/05/2025 4:35 AM EDT [facility] nRBC 0.0 <=0.0 per 100 WBCs LAB HEMATOLOGY METHOD 07/05/2025 4:35 AM EDT [facility] Differential Type Automated LAB HEMATOLOGY METHOD 07/05/2025 4:35 AM EDT [facility] Neutrophils % 64 % LAB HEMATOLOGY METHOD 07/05/2025 4:35 AM EDT [facility] Lymphocytes % 18 % LAB HEMATOLOGY METHOD 07/05/2025 4:35 AM EDT [facility] Monocytes % 15 % LAB HEMATOLOGY METHOD 07/05/2025 4:35 AM EDT [facility] Eosinophils % 2 % LAB HEMATOLOGY METHOD 07/05/2025 4:35 AM EDT [facility] Basophils % 1 % LAB HEMATOLOGY METHOD 07/05/2025 4:35 AM EDT [facility] Immature Granulocytes % 0 % LAB HEMATOLOGY METHOD 07/05/2025 4:35 AM EDT [facility] Neutrophils Absolute 1.84 1.60 - 6.10 10*3/uL LAB HEMATOLOGY METHOD 07/05/2025 4:35 AM EDT [facility] Lymphocytes Absolute 0.53(L) 1.20 - 3.90 10*3/uL LAB HEMATOLOGY METHOD 07/05/2025 4:35 AM EDT [facility] Monocytes Absolute 0.44 0.30 - 0.90 10*3/uL LAB HEMATOLOGY METHOD 07/05/2025 4:35 AM EDT [facility] Eosinophils Absolute 0.07 0.00 - 0.50 10*3/uL LAB HEMATOLOGY METHOD 07/05/2025 4:35 AM EDT [facility] Basophils Absolute 0.02 0.00 - 0.10 10*3/uL LAB HEMATOLOGY METHOD 07/05/2025 4:35 AM EDT [facility] Immature Granulocytes Absolute 0.01 0.00 - 0.06 10*3/uL LAB HEMATOLOGY METHOD 07/05/2025 4:35 AM EDT [facility] Blood Venous blood specimen / Unknown Venipuncture / Unknown 07/05/2025 4:01 AM EDT 07/05/2025 4:24 AM EDT Narrative [facility] - 07/05/2025 4:35 AM EDT Therapeutic decision making should be based on absolute values, rather than percentages. us Chilo Morales MD LAB BLOOD ORDERABLES Final Result Performing Organization Address [facility] [address]/ZIP Co de Phone Number [facility] [address] [place] [address] * (ABNORMAL) POCT glucose meter (07/04/2025 8:46 PM EDT) [facility] POCT Glucose 184(H) 74 - 99 mg/dL 07/04/2025 8:48 PM EDT [facility] Comment:Accuracy of [...] to the main labortory for testing. Comment 07/04/2025 8:48 PM EDT [facility] Scrap Worker ID Love Gore 8:48 PM EDT [facility] Device ID [id number] 07/04/2025 8:48 PM EDT [facility] Specimen Type POC Capillary 07/04/2025 8:48 PM EDT [facility] Blood Capillary blood specimen / Unknown 07/04/2025 8:46 PM EDT 07/04/2025 8:48 PM EDT us Fabiana Cunningham MD LAB POINT OF CARE TE ST DOCKED DEVICE UNSOLICITED RESULTS Final Result Performing Organization Address City/[facility] [address]/ZIP Co de Phone Number [facility] [address] [place] [address] * (ABNORMAL) POCT glucose meter (07/04/2025 4:55 PM EDT) [facility] POCT Glucose 219(H) 74 - 99 mg/dL 07/04/2025 6:43 PM EDT [facility] Comment:Accuracy of [...] to the main labortory for testing. Comment 07/04/2025 6:43 PM EDT [facility] Scrap Worker ID Fredy Field 6:43 PM EDT [facility] Device ID [id number] 07/04/2025 6:43 PM EDT [facility] Specimen Type POC Capillary 07/04/2025 6:43 PM EDT [facility] Blood Capillary blood specimen / Unknown 07/04/2025 4:55 PM EDT 07/04/2025 6:43 PM EDT us Fabiana Cunningham MD LAB POINT OF CARE TE ST DOCKED DEVICE UNSOLICITED RESULTS Final Result Performing Organization Address [facility] [address]/ZIP Co de Phone Number [facility] [address] [place] [address] * POCT glucose meter (07/04/2025 2:04 PM EDT) [facility] POCT Glucose 86 74 - 99 mg/dL 07/04/2025 2:05 PM EDT [facility] Comment:Accuracy of a glucos e result obtained from a capillary whole blood specimen relies upon adequate, non-compromised capillary blood flow. If the capillary glucose result is not consistent with the patient's clinical signs and symptoms, glucose testing should be repeated with either an arterial or venous sample on the glucometer or sent to the main labortory for testing. Comment 07/04/2025 2:05 PM EDT [facility] Scrap Worker ID Fredy Field 2:05 PM EDT [facility] Device ID [id number] 07/04/2025 2:05 PM EDT [facility] Specimen Type POC Capillary 07/04/2025 2:05 PM EDT [facility] Blood Capillary blood specimen / Unknown 07/04/2025 2:04 PM EDT 07/04/2025 2:05 PM EDT us Fabiana Cunningham MD LAB POINT OF CARE TE ST DOCKED DEVICE UNSOLICITED RESULTS Final Result [facility] [address] [place] [id number] * XR Chest 1 View (07/04/2025 11:43 AM EDT) Anatomical Region Laterality Modality Chest Digital Radiogra phy Impressions 07/04/2025 11:44 AM EDT No pneumothorax. CRITICAL RESULT: No. COMMUNICATION: Per this written report. Drafted by Alvarez Brenner MD on 07/04/2025 11:43 AM Final report signed by Alvarez Brenner MD on 07/04/2025 11:44 AM Narrative 07/04/2025 11:44 AM EDT CLINICAL INDICATION: Right thoracentesis TECHNIQUE: XR CHEST 1 VIEW COMPARISON: 07/03/2025 FINDINGS: Decreased right pleural effusion. No pneumothorax is identified. No edema or consolidation. Procedure Note Alvarez Brenner MD - 07/04/2025 CLINICAL INDICATION: Right thoracentesis TECHNIQUE: XR CHEST 1 VIEW COMPARISON: 07/03/2025 FINDINGS: Decreased right pleural effusion. No pneumothorax is identified. No edemaor consolidation. IMPRESSION: No pneumothorax. CRITICAL RESULT: No. COMMUNICATION: Per this written report. Drafted by Alvarez Bernner MD on 07/04/2025 11:43 AM Final report signed by Alvarez Brenner MD on 07/04/2025 11:44 AM Maria Dolores Ontiveros APRN, [facility] IMG XR PROCEDURES Final Result * US Guided Abdominal Paracentesis (07/04/2025 11:01 AM EDT) Anatomical Region Laterality Modality Abdomen Ultrasound Impressions 07/04/2025 3:50 PM EDT Technically successful US-guided paracentesis and right thoracentesis. A total of 1.5 liters of clear dark yellow fluid was removed from the abdomen. A total of 1.6 liters of serosanguinous fluid was removed from the right posterior pleural space. A sample of the fluid was sent for laboratory analysis. Administered Albumin 37.5 g IV once post procedure. CRITICAL RESULT: No. COMMUNICATION: Per this written report. Preliminary report signed by Maria Dolores Ontiveros APRN on 07/04/2025 2:11 PM By electronically signing this report, I, the attending physician, attest that I was not present for the procedure(s) but agree with the final edited report. Drafted by Maria Dolores Ontiveros APRN on 07/04/2025 2:05 PM Final report signed by Wily Mccall MD on 07/04/2025 3:50 PM Narrative 07/04/2025 3:50 PM EDT CLINICAL INDICATION: Monika Ordaz is a 64 y.o. 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 She is presenting to on 06/25/25 from Nephrology clinic with concern for CARLOTTA and inability to care for self. She was already scheduled as outpatient for thoracentesis and paracentesis on 07/04/25. She presents today for thoracentesis and paracentesis. TECHNIQUE: Traffic Analyst: Maria Dolores Ontiveros APRN Secondary Scrap Worker: None. Nurse: Mark Technologist: Dayne Phillips Dose: NA Medications: Continuous physiologic monitoring provided by a qualified healthcare professional. Administered: 1% Lidocaine with sodium bicarbonate SQ. Antibiotics: NA Time out: 1000 Procedure: After discussion of risks and benefits, [...] real time US guidance, a 5 Fr skater-centesis catheter was advanced into the ascites. Ultrasound images were sent to permanent storage in PACS. A total of 1.5 liters of clear dark yellow fluid was removed. The centesis catheter was removed and occlusive dressing applied. Next attention was turned to the right back for thoracentesis. The patient was placed in left lateral [...] in the right posterior pleural space. 1% buffered lidocaine used for local analgesia. Under real-time ultrasound guidance, a 5 Fr skater-centesis catheter was advanced into the pleural fluid. Ultrasound images were sent to permanent storage in PACS. A total of 1.6 liters of serosanguinous fluid was removed. The needle was removed and occlusive dressing applied. The patient tolerated the procedure well. The patient left the IR suite in stable condition. COMPARISON: None. FINDINGS: Small to moderate volume ascites. Moderate right pleural fluid. COMPLICATION: No. Procedure Note Wily Caballero MD - 07/04/2025 CLINICAL INDICATION: Monika Ordaz is a 64 y.o. 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 She is presenting to on 06/25/25 from Nephrologyclinic with concern for CARLOTTA and inability to care for self. She wasalready scheduled as outpatient for thoracentesis and paracentesis on07/04/25. She presents today for thoracentesis and paracentesis. TECHNIQUE: Traffic Analyst: Maria Dolores Ontiveros APRN Secondary Scrap Worker: None. Nurse: Mark Technologist: Dayne Phillips Dose: NA Medications: Continuous physiologic monitoring provided by a qualifiedhealthcare professional. Administered: 1% Lidocaine with sodiumbicarbonate SQ. Antibiotics: NA Time out: 1000 Procedure: After discussion of risks and benefits, [...] real time US guidance, a 5 Fr skater-centesiscatheter was advanced into the ascites. Ultrasound images were sent topermanent storage in PACS. A total of 1.5 liters of clear dark yellowfluid was removed. The centesis catheter was removed and occlusivedressing applied. Next attention was turned to the right back for thoracentesis. The patientwas placed in left lateral decubitus position and initial limited rightchest ultrasound scan performed. Strict hand hygiene protocol [...] in the right posterior pleural space. 1% buffered lidocaineused for local analgesia. Under real-time ultrasound guidance, a 5 Frskater-centesis catheter was advanced into the pleural fluid. Ultrasoundimages were sent to permanent storage in PACS. A total of 1.6 liters ofserosanguinous fluid was removed. The needle was removed and occlusivedressing applied. The patient tolerated the procedure well. The patient left the IR suitein stable condition. COMPARISON: None. FINDINGS: Small to moderate volume ascites. Moderate right pleural fluid. COMPLICATION: No. IMPRESSION: Technically successful US-guided paracentesis and right thoracentesis. A total of 1.5 liters of clear dark yellow fluid was removed from theabdomen. A total of 1.6 liters of serosanguinous fluid was removed from the rightposterior pleural space. A sample of the fluid was sent for laboratory analysis. Administered Albumin 37.5 g IV once post procedure. CRITICAL RESULT: No. COMMUNICATION: Per this written report. Preliminary report signed by Maria Dolores Ontiveros APRN on 07/04/2025 2:11 PM By electronically signing this report, I, the attending physician, attestthat I was not present for the procedure(s) but agree with the finaledited report. Drafted by Maria Dolores Ontiveros APRN on 07/04/2025 2:05 PM Final report signed by Wily Mccall MD on 07/04/2025 3:50 PM us Marianna Gordon ADRI IMG US PROCEDURES Final Resu lt * US Guided Thoracentesis (07/04/2025 11:01 AM EDT) Anatomical Region Laterality Modality Chest Ultrasound Impressions 07/04/2025 3:50 PM EDT Technically successful US-guided paracentesis and right thoracentesis. A total of 1.5 liters of clear dark yellow fluid was removed from the abdomen. A total of 1.6 liters of serosanguinous fluid was removed from the right posterior pleural space. A sample of the fluid was sent for laboratory analysis. Administered Albumin 37.5 g IV once post procedure. CRITICAL RESULT: No. COMMUNICATION: Per this written report. Preliminary report signed by Maria Dolores Ontiveros APRN on 07/04/2025 2:11 PM By electronically signing this report, I, the attending physician, attest that I was not present for the procedure(s) but agree with the final edited report. Drafted by Maria Dolores Ontiveros APRN on 07/04/2025 2:05 PM Final report signed by Wily Mccall MD on 07/04/2025 3:50 PM Narrative 07/04/2025 3:50 PM EDT CLINICAL INDICATION: Monika Ordaz is a 64 y.o. 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 She is presenting to on 06/25/25 from Nephrology clinic with concern for CARLOTTA and inability to care for self. She was already scheduled as outpatient for thoracentesis and paracentesis on 07/04/25. She presents today for thoracentesis and paracentesis. TECHNIQUE: Traffic Analyst: Maria Dolores Ontiveros APRN Secondary Scrap Worker: None. Nurse: Mark Technologist: Dayne Phillips Dose: NA Medications: Continuous physiologic monitoring provided by a qualified healthcare professional. Administered: 1% Lidocaine with sodium bicarbonate SQ. Antibiotics: NA Time out: 1000 Procedure: After discussion of risks and benefits, [...] real time US guidance, a 5 Fr skater-centesis catheter was advanced into the ascites. Ultrasound images were sent to permanent storage in PACS. A total of 1.5 liters of clear dark yellow fluid was removed. The centesis catheter was removed and occlusive dressing applied. Next attention was turned to the right back for thoracentesis. The patient was placed in left lateral [...] in the right posterior pleural space. 1% buffered lidocaine used for local analgesia. Under real-time ultrasound guidance, a 5 Fr skater-centesis catheter was advanced into the pleural fluid. Ultrasound images were sent to permanent storage in PACS. A total of 1.6 liters of serosanguinous fluid was removed. The needle was removed and occlusive dressing applied. The patient tolerated the procedure well. The patient left the IR suite in stable condition. COMPARISON: None. FINDINGS: Small to moderate volume ascites. Moderate right pleural fluid. COMPLICATION: No. Procedure Note Wily Caballero MD - 07/04/2025 CLINICAL INDICATION: Monika Ordaz is a 64 y.o. 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 She is [facility] with concern for CARLOTTA and inability to care for self. She wasalready scheduled as outpatient for thoracentesis and paracentesis on07/04/25. She presents today for thoracentesis and paracentesis. TECHNIQUE: Traffic Analyst: Maria Dolores Ontiveros APRN Secondary Scrap Worker: None. Nurse: Mark Technologist: Dayne Phillips Dose: NA Medications: Continuous physiologic monitoring provided by a qualifiedhealthcare professional. Administered: 1% Lidocaine with sodiumbicarbonate SQ. Antibiotics: NA Time out: 1000 Procedure: After discussion of risks and benefits, [...] real time US guidance, a 5 Fr skater-centesiscatheter was advanced into the ascites. Ultrasound images were sent topermanent storage in PACS. A total of 1.5 liters of clear dark yellowfluid was removed. The centesis catheter was removed and occlusivedressing applied. Next attention was turned to the right back for thoracentesis. The patientwas placed in left lateral decubitus position and initial limited rightchest ultrasound scan performed. Strict hand hygiene protocol [...] in the right posterior pleural space. 1% buffered lidocaineused for local analgesia. Under real-time ultrasound guidance, a 5 Frskater-centesis catheter was advanced into the pleural fluid. Ultrasoundimages were sent to permanent storage in PACS. A total of 1.6 liters ofserosanguinous fluid was removed. The needle was removed and occlusivedressing applied. The patient tolerated the procedure well. The patient left the IR suitein stable condition. COMPARISON: None. FINDINGS: Small to moderate volume ascites. Moderate right pleural fluid. COMPLICATION: No. IMPRESSION: Technically successful US-guided paracentesis and right thoracentesis. A total of 1.5 liters of clear dark yellow fluid was removed from theabdomen. A total of 1.6 liters of serosanguinous fluid was removed from the rightposterior pleural space. A sample of the fluid was sent for laboratory analysis. Administered Albumin 37.5 g IV once post procedure. CRITICAL RESULT: No. COMMUNICATION: Per this written report. Preliminary report signed by Maria Dolores Ontiveros APRN on 07/04/2025 2:11 PM By electronically signing this report, I, the attending physician, attestthat I was not present for the procedure(s) but agree with the finaledited report. Drafted by Maria Dolores Ontiveros APRN on 07/04/2025 2:05 PM Final report signed by Wily Mccall MD on 07/04/2025 3:50 PM us Marianna Gordon APRN IMG US PROCEDURES Final Resu lt * Body fluid, cytospin, pathologist interpretation (07/04/2025 10:48 AM EDT) Specimen Type Body Fluid LAB HEMATOLOGY METHOD 07/05/2025 1:43 PM EDT [facility] Specimen Source, Body Fluid Pleural, Right LAB HEMATOLOGY METHOD 07/05/2025 1:43 PM EDT [facility] Clinical Diagnosis, Body Fluid Pleural effusion LAB HEMATOLOGY METHOD 07/05/2025 1:43 PM EDT [facility] Interpretation , Body Fluid 07/05/2025 1:43 PM EDT [facility] Pathologist Signature, Body Fluid 07/05/2025 1:43 PM EDT [facility] Comment:Reviewed by: Onur Roque MD LAB CP ASR DISCLAIMER No 07/05/2025 1:43 PM EDT [facility] Specimen Source, Other Free Text No evidence of malignancy, Chronic inflammatory cells Lymphocytosis, Moderate blood 07/05/2025 1:43 PM EDT [facility] Body Fluid Structure of right pleural cavity / Unknown Non-blood Collection / Unknown 07/04/2025 10:48 AM EDT 07/04/2025 12:11 PM EDT us Fabiana Cunningham MD LAB BODY FLUIDS AND STOOLS VINCENT CATES Final Result [facility] [address] [place] [address] * Lactate Dehydrogenase, Pleural Fluid - Right (07/04/2025 10:48 AM EDT) LDH, Fluid 69 U/L 07/04/2025 4:42 PM EDT [facility] Pleural Fluid Structure of right pleural cavity / Unknown Non-blood Collection / Unknown 07/04/2025 10:48 AM EDT 07/04/2025 12:11 PM EDT Narrative [facility] - 07/04/2025 4:42 PM EDT No established reference interval. Results should be interpreted in comparison to the concentration in blood and in conjunction with the clinical context. Pleural fluid LDH and total protein measurements are used for differentiation of exudates and transudates. Light's criteria can be used to identify most pleural exudative effusions if one or more of the following criteria are present: (1) pleural otajm-fy-axzck protein ratio of >0.5, (2) pleural soacp-hp-psvba LDH ratio of >0.6, or (3) a pleural fluid LDH activity that is >2/3 the upper limit of a normal serum LDH activity. Light's criteria may misclassify ~25% of transudates as exudates in heart failure. These can be identified by calculating a gsagq-co-plcvojr albumin gradient (>1.2 g/dL) and/or a fqcxi-qm-ygpka protein gradient (>3.1 g/dL). us Fabiana Cunningham MD LAB BODY FLUIDS AND STOOLS ORDE RABBRITTANY Final Result Performing Organization Address [facility] [address]/[facility] Co de Phone Number [facility] [address] [place] [address] * Total Protein, Pleural Fluid - Pleural Right (07/04/2025 10:48 AM EDT) Total Protein, Fluid 2.1 g/dL 07/04/2025 4:42 PM EDT [facility] Pleural Fluid Structure of right pleural cavity / Unknown Non-blood Collection / Unknown 07/04/2025 10:48 AM EDT 07/04/2025 12:11 PM EDT Narrative [facility] - 07/04/2025 4:42 PM EDT This test was developed and its performance characteristics determined by [facility]. The U.S. Food and Drug Administration has not approved or cleared this test. However, FDA clearance or approval is not currently required for clinical use. The results are not intended to be used as the sole means for clinical diagnosis or patient management decisions. us Fabiana Cunningham MD LAB BODY FLUIDS AND STOOLS VINCENT CATES Final Result Performing Organization Address [facility] de Phone Number [facility] [address] [place] [address] * Body Fluid Culture and Gram Stain - Pleural Right (07/04/2025 10:48 AM EDT) Culture No growth at day 4 2024 7:42 AM EDT [facility] Gram Stain Result Few Polymorphonuclear leukocytes 07/07/2025 7:42 AM EDT [facility] Gram Stain Result No organisms seen 07/07/2025 7:42 AM EDT [facility] Pleural Fluid Specimen from pleura obtained by thoracentesis / Unknown Non-blood Collection / Unknown 07/04/2025 10:48 AM EDT 07/04/2025 12:41 PM EDT Fabiana Cunningham MD LAB MICROBIOLOGY - GENERAL ORDE RABLES Final Result Performing Organization Address City/[facility] [address]/[facility] Co de Phone Number [facility] [address] [place] [address] * (ABNORMAL) Body Fluid Cell Count w/ Diff - Pleural Right (07/04/2025 10:48 AM EDT) Color, Body fluid [place] LAB HEMATOLOGY METHOD 07/04/2025 5:03 PM EDT [facility] Appearance, Body fluid Cloudy(A) LAB HEMATOLOGY METHOD 07/04/2025 5:03 PM EDT [facility] Volume, Body fluid 90.0 cc LAB HEMATOLOGY METHOD 07/04/2025 5:03 PM EDT [facility] Fluid Container Specimen received in miscellaneous container LAB HEMATOLOGY METHOD 07/04/2025 5:03 PM EDT [facility] Red Blood Cell Count, Body fluid 16,000 uL LAB HEMATOLOGY METHOD 07/04/2025 5:03 PM EDT [facility] Total Nucleated Cell Count, Body fluid 380 uL LAB HEMATOLOGY METHOD 07/04/2025 5:03 PM EDT [facility] Neutrophils %, Body fluid 7 % LAB HEMATOLOGY METHOD 07/04/2025 5:03 PM EDT [facility] Lymphocytes %, Body fluid 63 % LAB HEMATOLOGY METHOD 07/04/2025 5:03 PM EDT [facility] Monocytes/Macr ophages %, Body fluid 29 % LAB HEMATOLOGY METHOD 07/04/2025 5:03 PM EDT [facility] Eosinophils %, Body fluid 0 % LAB HEMATOLOGY METHOD 07/04/2025 5:03 PM EDT [facility] Lining/Mesothe lial Cells %, Body fluid 1 % LAB HEMATOLOGY METHOD 07/04/2025 5:03 PM EDT [facility] Neutrophils Absolute (PMN), Body fluid 27 uL LAB HEMATOLOGY METHOD 07/04/2025 5:03 PM EDT [facility] Lymphocytes Absolute, Body fluid 239 uL LAB HEMATOLOGY METHOD 07/04/2025 5:03 PM EDT [facility] Monocytes/Macr ophages Absolute, Body fluid 110 uL LAB HEMATOLOGY METHOD 07/04/2025 5:03 PM EDT [facility] Eosinophils Absolute, Body fluid 0 uL LAB HEMATOLOGY METHOD 07/04/2025 5:03 PM EDT [facility] Basophils Absolute, Body fluid 0 uL LAB HEMATOLOGY METHOD 07/04/2025 5:03 PM EDT [facility] Lining/Mesothe lial Cells Absolute, Body fluid 4 uL LAB HEMATOLOGY METHOD 07/04/2025 5:03 PM EDT [facility] Comment, Body fluid None LAB HEMATOLOGY METHOD 07/04/2025 5:03 PM EDT [facility] Comment:This is an appended report. These results have been appended to a previously preliminary verified report. Basophils %, Body fluid 0 % LAB HEMATOLOGY METHOD 07/04/2025 5:03 PM EDT [facility] Body Fluid Structure of right pleural cavity / Unknown Non-blood Collection / Unknown 07/04/2025 10:48 AM EDT 07/04/2025 12:11 PM EDT us Fabiana Cunningham MD LAB BODY FLUIDS AND STOOLS ORDERABLES NO SPECIMEN TYPE/SOURCE Final Result [facility] [address] [place] [address] * Body fluid, cytospin, pathologist interpretation (07/04/2025 10:08 AM EDT) Specimen Type Body Fluid LAB HEMATOLOGY METHOD 07/05/2025 3:43 PM EDT [facility] Specimen Source, Body Fluid Peritoneal Fluid LAB HEMATOLOGY METHOD 07/05/2025 3:43 PM EDT [facility] Clinical Diagnosis, Body Fluid Ascites LAB HEMATOLOGY METHOD 07/05/2025 3:43 PM EDT [facility] Interpretation , Body Fluid No evidence of malignancy Predominantly chronic inflammatory cells Moderate blood 07/05/2025 3:43 PM EDT [facility] Pathologist Signature, Body Fluid 07/05/2025 3:43 PM EDT [facility] Comment:Reviewed by: Kadie dobbs MD LAB CP ASR DISCLAIMER No 07/05/2025 3:43 PM EDT [facility] Body Fluid Peritoneal fluid / Unknown Non-blood Collection / Unknown 07/04/2025 10:08 AM EDT 07/04/2025 12:08 PM EDT us Fabiana Cunningham MD LAB BODY FLUIDS AND STOOLS ORDE RABBRITTANY Final Result Performing Organization Address [facility] [address]/ZIP Co de Phone Number [facility] [address] [place] [address] * Protein - Ascites (07/04/2025 10:08 AM EDT) Total Protein, Fluid 2.1 g/dL 07/04/2025 3:52 PM EDT [facility] Ascites Peritoneal cavity structure / Unknown 07/04/2025 10:08 AM EDT 07/04/2025 12:10 PM EDT Narrative [facility] - 07/04/2025 3:52 PM EDT This test was developed and its performance characteristics determined by [facility]. The U.S. Food and Drug Administration has not approved or cleared this test. However, FDA clearance or approval is not currently required for clinical use. The results are not intended to be used as the sole means for clinical diagnosis or patient management decisions. Fabiana Cunningham MD LAB BODY FLUIDS AND STOOLS QIANE RABBRITTANY Final Result Performing Organization Address [facility] [address]/[facility] Co de Phone Number [facility] [address] [place] [address] * Glucose - Ascites (07/04/2025 10:08 AM EDT) Glucose, Fluid 112 mg/dL 07/04/2025 3:52 PM EDT [facility] Ascites Peritoneal cavity structure / Unknown 07/04/2025 10:08 AM EDT 07/04/2025 12:10 PM EDT Narrative [facility] - 07/04/2025 3:52 PM EDT Peritoneal/Ascites No established reference interval. [...] plasma; 3) Glucose < 50 mg/dL. us Fabiana Cunningham MD LAB BODY FLUIDS AND STOOLS ORDE RABBRITTANY Final Result Performing Organization Address City/[facility] [address]/ZIP Co de Phone Number [facility] [address] [place] [address] * LDH - Ascites (07/04/2025 10:08 AM EDT) LDH, Fluid 63 U/L 07/04/2025 3:52 PM EDT [facility] Ascites Peritoneal cavity structure / Unknown 07/04/2025 10:08 AM EDT 07/04/2025 12:10 PM EDT Narrative [facility] - 07/04/2025 3:52 PM EDT No established reference interval. Results should be interpreted in comparison to the concentration in blood and in conjunction with the clinical context. Peritoneal fluid LDH may be useful in differentiating secondary bacterial peritonitis (GI perforation) from spontaneous bacterial peritonitis when at least 2 of 3 of the following is met: 1) Total protein > 1g/dL; 2) LDH >upper limit of normal for plasma; 3) Glucose < 50 mg/dL. Fabiana Cunningham MD LAB BODY FLUIDS AND STOOLS VINCENT CATES Final Result Performing Organization Address [facility] Co de Phone Number [facility] [address] [place] [address] * Body Fluid Culture and Gram Stain (07/04/2025 10:08 AM EDT) Culture No growth at day 4 2024 7:42 AM EDT [facility] Gram Stain Result Few Polymorphonuclear leukocytes 07/07/2025 7:42 AM EDT [facility] Gram Stain Result No organisms seen 07/07/2025 7:42 AM EDT [facility] Peritoneal Fluid Peritoneal cavity structure / Unknown Non-blood Collection / Unknown 07/04/2025 10:08 AM EDT 07/04/2025 12:42 PM EDT us Fabiana Cunningham MD LAB MICROBIOLOGY - GENERAL ORDLoyd CATES Final Result Performing Organization Address City/[facility] [address]/ZIP Co de Phone Number [facility] [address] [place] [address] * (ABNORMAL) Body Fluid Cell Count With Diff - Ascites (07/04/2025 10:08 AM EDT) Color, Body fluid [place] LAB HEMATOLOGY METHOD 07/04/2025 3:41 PM EDT [facility] Appearance, Body fluid Cloudy(A) LAB HEMATOLOGY METHOD 07/04/2025 3:41 PM EDT [facility] Volume, Body fluid 20.0 cc LAB HEMATOLOGY METHOD 07/04/2025 3:41 PM EDT [facility] Fluid Container Specimen received in miscellaneous container LAB HEMATOLOGY METHOD 07/04/2025 3:41 PM EDT [facility] Red Blood Cell Count, Body fluid 11,000 uL LAB HEMATOLOGY METHOD 07/04/2025 3:41 PM EDT [facility] Total Nucleated Cell Count, Body fluid 296 uL LAB HEMATOLOGY METHOD 07/04/2025 3:41 PM EDT [facility] Neutrophils %, Body fluid 11 % LAB HEMATOLOGY METHOD 07/04/2025 3:41 PM EDT [facility] Lymphocytes %, Body fluid 56 % LAB HEMATOLOGY METHOD 07/04/2025 3:41 PM EDT [facility] Monocytes/Macr ophages %, Body fluid 30 % LAB HEMATOLOGY METHOD 07/04/2025 3:41 PM EDT [facility] Eosinophils %, Body fluid 1 % LAB HEMATOLOGY METHOD 07/04/2025 3:41 PM EDT [facility] Lining/Mesothe lial Cells %, Body fluid 2 % LAB HEMATOLOGY METHOD 07/04/2025 3:41 PM EDT [facility] Neutrophils Absolute (PMN), Body fluid 33 uL LAB HEMATOLOGY METHOD 07/04/2025 3:41 PM EDT [facility] Lymphocytes Absolute, Body fluid 166 uL LAB HEMATOLOGY METHOD 07/04/2025 3:41 PM EDT [facility] Monocytes/Macr ophages Absolute, Body fluid 89 uL LAB HEMATOLOGY METHOD 07/04/2025 3:41 PM EDT [facility] Eosinophils Absolute, Body fluid 3 uL LAB HEMATOLOGY METHOD 07/04/2025 3:41 PM EDT [facility] Basophils Absolute, Body fluid 0 uL LAB HEMATOLOGY METHOD 07/04/2025 3:41 PM EDT [facility] Lining/Mesothe lial Cells Absolute, Body fluid 6 uL LAB HEMATOLOGY METHOD 07/04/2025 3:41 PM EDT [facility] Basophils %, Body fluid 0 % LAB HEMATOLOGY METHOD 07/04/2025 3:41 PM EDT [facility] Body Fluid Peritoneal fluid / Unknown Non-blood Collection / Unknown 07/04/2025 10:08 AM EDT 07/04/2025 12:08 PM EDT us Fabiana Cunningham MD LAB BODY FLUIDS AND STOOLS ORDERABLES NO SPECIMEN TYPE/SOURCE Final Result Performing Organization Address City/[facility] [address]/ZIP Co de Phone Number [facility] [address] [place] [address] * (ABNORMAL) POCT glucose meter (07/04/2025 8:07 AM EDT) POCT Glucose 103(H) 74 - 99 mg/dL 07/04/2025 8:09 AM EDT [facility] Comment:Accuracy of a glucos e result obtained from a capillary whole blood specimen relies upon adequate, non-compromised capillary blood flow. If the capillary glucose result is not consistent with the patient's clinical signs and symptoms, glucose testing should be repeated with either an arterial or venous sample on the glucometer or sent to the main labortory for testing. Comment 07/04/2025 8:09 AM EDT [facility] Scrap Worker ID Fredy Field 8:09 AM EDT [facility] Device ID [id number] 07/04/2025 8:09 AM EDT [facility] Specimen Type POC Capillary 07/04/2025 8:09 AM EDT [facility] Blood Capillary blood specimen / Unknown 07/04/2025 8:07 AM EDT 07/04/2025 8:09 AM EDT us Fabiana Cunningahm MD LAB POINT OF CARE TE ST DOCKED DEVICE UNSOLICITED RESULTS Final Result Performing Organization Address City/[facility] [address]/ZIP Co de Phone Number [facility] [address] [place] [address] * (ABNORMAL) Protime-INR (07/04/2025 4:47 AM EDT) Pathologist [facility] Prothrombin Time 24.0(H) 12.0 - 14.3 sec 07/04/2025 5:51 AM EDT [facility] INR 2.1(H) 0.9 - 1.1 07/04/2025 5:51 AM EDT [facility] Blood Venous blood specimen / Unknown Venipuncture / Unknown 07/04/2025 4:47 AM EDT 07/04/2025 4:55 AM EDT [facility] - 07/04/2025 5:51 AM EDT OPTIMAL INR RANGES FOR PATIENT ON ORAL ANTICOAGULANT THERAPY Prevention of venous thromboembolism INR 2.0 to 3.0 In patients with heart disease: Atrial fibrillation INR 2.0 to 3.0 Valvular heart disease INR 2.0 to 3.0 Tissue heart valves INR 2.0 to 3.0 Mechanical prosthetic valves INR 2.5 to 3.5 Prevention of recurrent [place] INR 2.5 to 3.5 us Fabiana Cunningham MD LAB BLOOD ORDERABLES Final Resu lt [facility] [address] [place] [address] * (ABNORMAL) Comprehensive metabolic panel (07/04/2025 4:47 AM EDT) Pathologist [facility] Glucose, Plasma 111(H) 74 - 99 mg/dL 07/04/2025 5:23 AM EDT [facility] BUN, Plasma 28(H) 8 - 23 mg/dL 07/04/2025 5:23 AM EDT [facility] Creatinine, Plasma 1.32(H) 0.60 - 1.10 mg/dL 07/04/2025 5:23 AM EDT [facility] BUN/Creatinine Ratio 21 07/04/2025 5:23 AM EDT [facility] Sodium, Plasma 138 136 - 145 mmol/L 07/04/2025 5:23 AM EDT [facility] Potassium, Plasma 4.1 3.6 - 4.9 mmol/L 07/04/2025 5:23 AM EDT [facility] Chloride, Plasma 112(H) 97 - 107 mmol/L 07/04/2025 5:23 AM EDT [facility] CO2, Plasma 16(L) 22 - 29 mmol/L 07/04/2025 5:23 AM EDT [facility] Anion Gap 10 6 - 16 mmol/L 07/04/2025 5:23 AM EDT [facility] Total Calcium, Plasma 8.7(L) 8.9 - 10.2 mg/dL 07/04/2025 5:23 AM EDT [facility] Total Protein 6.2(L) 6.3 - 7.9 g/dL 07/04/2025 5:23 AM EDT [facility] Albumin, Plasma 3.8 3.5 - 5.2 g/dL 07/04/2025 5:23 AM EDT [facility] AST, Plasma 31 10 - 35 U/L 07/04/2025 5:23 AM EDT [facility] ALT, Plasma 14 10 - 35 U/L 07/04/2025 5:23 AM EDT [facility] Alkaline Phosphatase, Plasma 139 46 - 142 U/L 07/04/2025 5:23 AM EDT [facility] Total Bilirubin, Plasma 3.1(H) 0.2 - 1.1 mg/dL 07/04/2025 5:23 AM EDT [facility] eGFRcr 45.7 mL/min/1.7 3m*2 07/04/2025 5:23 AM EDT [facility] Comment:Reported eGFRcr in m L/min/1.73m2 is based the CKD-EPI 2020 equation that does not use a race coefficient. Blood Venous blood specimen / Unknown Venipuncture / Unknown 07/04/2025 4:47 AM EDT 07/04/2025 4:55 AM EDT us Chilo Morales MD LAB BLOOD ORDERABLES Final Result [facility] [address] [place] [address] * Phosphorus, Plasma (07/04/2025 4:47 AM EDT) Phosphorus, Plasma 3.4 2.5 - 4.5 mg/dL 07/04/2025 5:23 AM EDT [facility] Blood Venous blood specimen / Unknown Venipuncture / Unknown 07/04/2025 4:47 AM EDT 07/04/2025 4:55 AM EDT us Chilo Morales MD LAB BLOOD ORDERABLES Final Result Performing Organization Address City/[facility] [address]/ZIP Co de Phone Number [facility] [address] [place] [address] * (ABNORMAL) Magnesium, Plasma (07/04/2025 4:47 AM EDT) Magnesium, Plasma 1.8(L) 1.9 - 2.4 mg/dL 07/04/2025 5:23 AM EDT [facility] Blood Venous blood specimen / Unknown Venipuncture / Unknown 07/04/2025 4:47 AM EDT 07/04/2025 4:55 AM EDT Chilo Morales MD LAB BLOOD ORDERABLES Final Result Performing Organization Address [facility] [address]/[facility] de Phone Number [facility] [address] [place] [address] * (ABNORMAL) CBC and Differential (07/04/2025 4:47 AM EDT) WBC Count 2.46(L) 3.70 - 10.30 10*3/uL LAB HEMATOLOGY METHOD 07/04/2025 4:58 AM EDT [facility] [facility] RBC Count 2.55(L) 3.90 - 5.20 10*6/uL LAB HEMATOLOGY METHOD 07/04/2025 4:58 AM EDT [facility] HGB 7.9(L) 11.2 - 15.7 g/dL LAB HEMATOLOGY METHOD 07/04/2025 4:58 AM EDT [facility] HCT 23.8(L) 34.0 - 45.0 % LAB HEMATOLOGY METHOD 07/04/2025 4:58 AM EDT [facility] Platelet Count 39(L) 155 - 369 10*3/uL LAB HEMATOLOGY METHOD 07/04/2025 4:58 AM EDT [facility] MCV 93 79 - 98 fL LAB HEMATOLOGY METHOD 07/04/2025 4:58 AM EDT [facility] MCH 31.0 26.0 - 32.0 pg LAB HEMATOLOGY METHOD 07/04/2025 4:58 AM EDT [facility] MCHC 33.2 30.7 - 35.5 g/dL LAB HEMATOLOGY METHOD 07/04/2025 4:58 AM EDT [facility] RDW 15.6(H) 11.5 - 14.5 % LAB HEMATOLOGY METHOD 07/04/2025 4:58 AM EDT [facility] MPV 11.5 8.8 - 12.5 fL LAB HEMATOLOGY METHOD 07/04/2025 4:58 AM EDT [facility] nRBC 0.0 <=0.0 per 100 WBCs LAB HEMATOLOGY METHOD 07/04/2025 4:58 AM EDT [facility] Differential Type Automated LAB HEMATOLOGY METHOD 07/04/2025 4:58 AM EDT [facility] Neutrophils % 58 % LAB HEMATOLOGY METHOD 07/04/2025 4:58 AM EDT [facility] Lymphocytes % 22 % LAB HEMATOLOGY METHOD 07/04/2025 4:58 AM EDT [facility] Monocytes % 18 % LAB HEMATOLOGY METHOD 07/04/2025 4:58 AM EDT [facility] Eosinophils % 2 % LAB HEMATOLOGY METHOD 07/04/2025 4:58 AM EDT [facility] Basophils % 0 % LAB HEMATOLOGY METHOD 07/04/2025 4:58 AM EDT [facility] Immature Granulocytes % 0 % LAB HEMATOLOGY METHOD 07/04/2025 4:58 AM EDT [facility] Neutrophils Absolute 1.40(L) 1.60 - 6.10 10*3/uL LAB HEMATOLOGY METHOD 07/04/2025 4:58 AM EDT [facility] Lymphocytes Absolute 0.55(L) 1.20 - 3.90 10*3/uL LAB HEMATOLOGY METHOD 07/04/2025 4:58 AM EDT [facility] Monocytes Absolute 0.43 0.30 - 0.90 10*3/uL LAB HEMATOLOGY METHOD 07/04/2025 4:58 AM EDT [facility] Eosinophils Absolute 0.06 0.00 - 0.50 10*3/uL LAB HEMATOLOGY METHOD 07/04/2025 4:58 AM EDT [facility] Basophils Absolute 0.01 0.00 - 0.10 10*3/uL LAB HEMATOLOGY METHOD 07/04/2025 4:58 AM EDT [facility] Immature Granulocytes Absolute 0.01 0.00 - 0.06 10*3/uL LAB HEMATOLOGY METHOD 07/04/2025 4:58 AM EDT [facility] Blood Venous blood specimen / Unknown Venipuncture / Unknown 07/04/2025 4:47 AM EDT 07/04/2025 4:55 AM EDT Narrative [facility] - 07/04/2025 4:58 AM EDT Therapeutic decision making should be based on absolute values, rather than percentages. us Chilo Morales MD LAB BLOOD ORDERABLES Final Result Performing Organization Address City/[facility] [address]/ZIP Co de Phone Number [facility] [address] [place] [address] * (ABNORMAL) POCT glucose meter (07/03/2025 8:36 PM EDT) [facility] Signature POCT Glucose 109(H) 74 - 99 mg/dL 07/03/2025 8:37 PM EDT [facility] Comment:Accuracy of [...] to the main labortory for testing. Comment 07/03/2025 8:37 PM EDT [facility] Scrap Worker ID Margarette Angel 07/03/2025 8:37 PM EDT [facility] Device ID [id number] 07/03/2025 8:37 PM EDT [facility] Specimen Type POC Capillary 07/03/2025 8:37 PM EDT [facility] Blood Capillary blood specimen / Unknown 07/03/2025 8:36 PM EDT 07/03/2025 8:37 PM EDT us Fabiana Cunningham MD LAB POINT OF CARE TE ST DOCKED DEVICE UNSOLICITED RESULTS Final Result Performing Organization Address [facility] [address]/ZIP Co de Phone Number [facility] [address] [place] [address] * XR Abdomen 1 View (07/03/2025 7:02 PM EDT) Anatomical Region Laterality Modality Body Digital Radiogra phy Impressions 07/03/2025 7:32 PM EDT Increased right effusion and right lung opacities. Dilatation of small and large bowel loops by gas suggestive of ileus CRITICAL RESULT: No COMMUNICATION: Per this written report. Drafted by Adri Marie MD on 07/03/2025 7:31 PM Final report signed by Adri Marie MD on 07/03/2025 7:32 PM Narrative 07/03/2025 7:32 PM EDT CLINICAL INDICATION: new onset shortness of air TECHNIQUE: XR CHEST 1 VIEW, XR ABDOMEN 1 VIEW COMPARISON: 06/27/2025 FINDINGS: The cardiomediastinal silhouette is stable. Development of right effusion and right infrahilar and lower lobe opacities. Left lung is clear. No pneumothorax. Degenerative change in the spine. Diffuse dilatation of the small large bowel loops by gas. Procedure Note Adri Marie MD - 07/03/2025 CLINICAL INDICATION: new onset shortness of air TECHNIQUE: XR CHEST 1 VIEW, XR ABDOMEN 1 VIEW COMPARISON: 06/27/2025 FINDINGS: The cardiomediastinal silhouette is stable. Development of right effusionand right infrahilar and lower lobe opacities. Left lung is clear. Nopneumothorax. Degenerative change in the spine. Diffuse dilatation of the small largebowel loops by gas. IMPRESSION: Increased right effusion and right lung opacities. Dilatation of small and large bowel loops by gas suggestive of ileus CRITICAL RESULT: No COMMUNICATION: Per this written report. Drafted by Adri Marie MD on 07/03/2025 7:31 PM Final report signed by Adri Marie MD on 07/03/2025 7:32 PM Fabiana Cunningham MD IMG XR PROCEDURES Final Result * XR Chest 1 View (07/03/2025 7:02 PM EDT) Anatomical Region Laterality Modality Chest Digital Radiogra phy Impressions 07/03/2025 7:32 PM EDT Increased right effusion and right lung opacities. Dilatation of small and large bowel loops by gas suggestive of ileus CRITICAL RESULT: No COMMUNICATION: Per this written report. Drafted by Adri Marie MD on 07/03/2025 7:31 PM Final report signed by Adri Marie MD on 07/03/2025 7:32 PM Narrative 07/03/2025 7:32 PM EDT CLINICAL INDICATION: new onset shortness of air TECHNIQUE: XR CHEST 1 VIEW, XR ABDOMEN 1 VIEW COMPARISON: 06/27/2025 FINDINGS: The cardiomediastinal silhouette is stable. Development of right effusion and right infrahilar and lower lobe opacities. Left lung is clear. No pneumothorax. Degenerative change in the spine. Diffuse dilatation of the small large bowel loops by gas. Procedure Note Adri Marie MD - 07/03/2025 CLINICAL INDICATION: new onset shortness of air TECHNIQUE: XR CHEST 1 VIEW, XR ABDOMEN 1 VIEW COMPARISON: 06/27/2025 FINDINGS: The cardiomediastinal silhouette is stable. Development of right effusionand right infrahilar and lower lobe opacities. Left lung is clear. Nopneumothorax. Degenerative change in the spine. Diffuse dilatation of the small largebowel loops by gas. IMPRESSION: Increased right effusion and right lung opacities. Dilatation of small and large bowel loops by gas suggestive of ileus CRITICAL RESULT: No COMMUNICATION: Per this written report. Drafted by Adri Marie MD on 07/03/2025 7:31 PM Final report signed by Adri Marie MD on 07/03/2025 7:32 PM Fabiana Cunningham MD IMG XR PROCEDURES Final Result * (ABNORMAL) POCT glucose meter (07/03/2025 4:46 PM EDT) [facility] POCT Glucose 122(H) 74 - 99 mg/dL 07/03/2025 4:48 PM EDT [facility] Comment:Accuracy of a glucos e result obtained from a capillary whole blood specimen relies upon adequate, non-compromised capillary blood flow. If the capillary glucose result is not consistent with the patient's clinical signs and symptoms, glucose testing should be repeated with either an arterial or venous sample on the glucometer or sent to the main labortory for testing. Comment 07/03/2025 4:48 PM EDT [facility] Scrap Worker ID Reyes Elias 07/03/2025 4:48 PM EDT [facility] Device ID [id number] 07/03/2025 4:48 PM EDT [facility] Specimen Type POC Capillary 07/03/2025 4:48 PM EDT [facility] Blood Capillary blood specimen / Unknown 07/03/2025 4:46 PM EDT 07/03/2025 4:48 PM EDT Fabiana Cunningham MD LAB POINT OF CARE TE ST DOCKED DEVICE UNSOLICITED RESULTS Final Result Performing Organization Address City/[facility] [address]/[facility] Co de Phone Number [facility] [address] [place] [address] * (ABNORMAL) POCT glucose meter (07/03/2025 11:50 AM EDT) POCT Glucose 221(H) 74 - 99 mg/dL 07/03/2025 11:51 AM EDT [facility] Comment:Accuracy of a glucos e result obtained from a capillary whole blood specimen relies upon adequate, non-compromised capillary blood flow. If the capillary glucose result is not consistent with the patient's clinical signs and symptoms, glucose testing should be repeated with either an arterial or venous sample on the glucometer or sent to the main labortory for testing. Comment 07/03/2025 11:51 AM EDT [facility] Scrap Worker ID Reyes Elias 07/03/2025 11:51 AM EDT [facility] Device ID [id number] 07/03/2025 11:51 AM EDT [facility] Specimen Type POC Capillary 07/03/2025 11:51 AM EDT [facility] Blood Capillary blood specimen / Unknown 07/03/2025 11:50 AM EDT 07/03/2025 11:51 AM EDT us Fabiana Cunningham MD LAB POINT OF CARE TE ST DOCKED DEVICE UNSOLICITED RESULTS Final Result Performing Organization Address City/[facility] [address]/[facility] Co de Phone Number [facility] [address] [place] [address] * (ABNORMAL) POCT glucose meter (07/03/2025 8:14 AM EDT) POCT Glucose 143(H) 74 - 99 mg/dL 07/03/2025 8:16 AM EDT [facility] Comment:Accuracy of a glucos e result obtained from a capillary whole blood specimen relies upon adequate, non-compromised capillary blood flow. If the capillary glucose result is not consistent with the patient's clinical signs and symptoms, glucose testing should be repeated with either an arterial or venous sample on the glucometer or sent to the main labortory for testing. Comment 07/03/2025 8:16 AM EDT [facility] Scrap Worker ID Reyes Elias 07/03/2025 8:16 AM EDT [facility] Device ID [id number] 07/03/2025 8:16 AM EDT [facility] Specimen Type POC Capillary 07/03/2025 8:16 AM EDT [facility] Blood Capillary blood specimen / Unknown 07/03/2025 8:14 AM EDT 07/03/2025 8:16 AM EDT us Fabiana Cunningham MD LAB POINT OF CARE TE ST DOCKED DEVICE UNSOLICITED RESULTS Final Result Performing Organization Address City/State/[facility] de Phone Number [facility] [address] [place] [address] * (ABNORMAL) Protime-INR (07/03/2025 4:25 AM EDT) Prothrombin Time 23.0(H) 12.0 - 14.3 sec 07/03/2025 4:42 AM EDT [facility] INR 2.0(H) 0.9 - 1.1 07/03/2025 4:42 AM EDT [facility] Blood Venous blood specimen / Unknown Venipuncture / Unknown 07/03/2025 4:25 AM EDT 07/03/2025 4:29 AM EDT Narrative [facility] - 07/03/2025 4:42 AM EDT OPTIMAL INR RANGES FOR PATIENT ON ORAL ANTICOAGULANT THERAPY Prevention of venous thromboembolism INR 2.0 to 3.0 In patients with heart disease: Atrial fibrillation INR 2.0 to 3.0 Valvular heart disease INR 2.0 to 3.0 Tissue heart valves INR 2.0 to 3.0 Mechanical prosthetic valves INR 2.5 to 3.5 Prevention of recurrent [place] INR 2.5 to 3.5 us Fabiana Cunningham MD LAB BLOOD ORDERABLES Final Resu lt [facility] [address] [place] [address] * (ABNORMAL) Comprehensive metabolic panel (07/03/2025 4:25 AM EDT) Glucose, Plasma 148(H) 74 - 99 mg/dL 07/03/2025 4:59 AM EDT [facility] BUN, Plasma 32(H) 8 - 23 mg/dL 07/03/2025 4:59 AM EDT [facility] Creatinine, Plasma 1.53(H) 0.60 - 1.10 mg/dL 07/03/2025 4:59 AM EDT [facility] BUN/Creatinine Ratio 21 07/03/2025 4:59 AM EDT [facility] Sodium, Plasma 141 136 - 145 mmol/L 07/03/2025 4:59 AM EDT [facility] Potassium, Plasma 4.3 3.6 - 4.9 mmol/L 07/03/2025 4:59 AM EDT [facility] Chloride, Plasma 111(H) 97 - 107 mmol/L 07/03/2025 4:59 AM EDT [facility] CO2, Plasma 19(L) 22 - 29 mmol/L 07/03/2025 4:59 AM EDT [facility] Anion Gap 11 6 - 16 mmol/L 07/03/2025 4:59 AM EDT [facility] Total Calcium, Plasma 8.7(L) 8.9 - 10.2 mg/dL 07/03/2025 4:59 AM EDT [facility] Total Protein 6.2(L) 6.3 - 7.9 g/dL 07/03/2025 4:59 AM EDT [facility] Albumin, Plasma 3.5 3.5 - 5.2 g/dL 07/03/2025 4:59 AM EDT [facility] AST, Plasma 36(H) 10 - 35 U/L 07/03/2025 4:59 AM EDT [facility] ALT, Plasma 19 10 - 35 U/L 07/03/2025 4:59 AM EDT [facility] Alkaline Phosphatase, Plasma 164(H) 46 - 142 U/L 07/03/2025 4:59 AM EDT [facility] Total Bilirubin, Plasma 2.9(H) 0.2 - 1.1 mg/dL 07/03/2025 4:59 AM EDT [facility] eGFRcr 38.3 mL/min/1.7 3m*2 07/03/2025 4:59 AM EDT [facility] Comment:Reported eGFRcr in m L/min/1.73m2 is based the CKD-EPI 2020 equation that does not use a race coefficient. Blood Venous blood specimen / Unknown Venipuncture / Unknown 07/03/2025 4:25 AM EDT 07/03/2025 4:29 AM EDT us Chilo Morales MD LAB BLOOD ORDERABLES Final Result Performing Organization Address [facility] de Phone Number [facility] [address] [place] [address] * Phosphorus, Plasma (07/03/2025 4:25 AM EDT) Phosphorus, Plasma 3.3 2.5 - 4.5 mg/dL 07/03/2025 4:59 AM EDT [facility] Blood Venous blood specimen / Unknown Venipuncture / Unknown 07/03/2025 4:25 AM EDT 07/03/2025 4:29 AM EDT us Chilo Morales MD LAB BLOOD ORDERABLES Final Result Performing Organization Address City/[facility] [address]/[facility] Co de Phone Number [facility] [address] [place] [address] * Magnesium, Plasma (07/03/2025 4:25 AM EDT) Magnesium, Plasma 2.0 1.9 - 2.4 mg/dL 07/03/2025 4:59 AM EDT [facility] Blood Venous blood specimen / Unknown Venipuncture / Unknown 07/03/2025 4:25 AM EDT 07/03/2025 4:29 AM EDT us Chilo Morales MD LAB BLOOD ORDERABLES Final Result Performing Organization Address City/[facility] [address]/[facility] de Phone Number [facility] [address] [place] [phone] * (ABNORMAL) CBC and Differential (07/03/2025 4:25 AM EDT) WBC Count 2.60(L) 3.70 - 10.30 10*3/uL LAB HEMATOLOGY METHOD 07/03/2025 4:32 AM EDT [facility] RBC Count 2.56(L) 3.90 - 5.20 10*6/uL LAB HEMATOLOGY METHOD 07/03/2025 4:32 AM EDT [facility] HGB 7.9(L) 11.2 - 15.7 g/dL LAB HEMATOLOGY METHOD 07/03/2025 4:32 AM EDT [facility] HCT 23.6(L) 34.0 - 45.0 % LAB HEMATOLOGY METHOD 07/03/2025 4:32 AM EDT [facility] Platelet Count 43(L) 155 - 369 10*3/uL LAB HEMATOLOGY METHOD 07/03/2025 4:32 AM EDT [facility] MCV 92 79 - 98 fL LAB HEMATOLOGY METHOD 07/03/2025 4:32 AM EDT [facility] MCH 30.9 26.0 - 32.0 pg LAB HEMATOLOGY METHOD 07/03/2025 4:32 AM EDT [facility] MCHC 33.5 30.7 - 35.5 g/dL LAB HEMATOLOGY METHOD 07/03/2025 4:32 AM EDT [facility] RDW 15.0(H) 11.5 - 14.5 % LAB HEMATOLOGY METHOD 07/03/2025 4:32 AM EDT [facility] MPV 11.8 8.8 - 12.5 fL LAB HEMATOLOGY METHOD 07/03/2025 4:32 AM EDT [facility] nRBC 0.0 <=0.0 per 100 WBCs LAB HEMATOLOGY METHOD 07/03/2025 4:32 AM EDT [facility] Differential Type Automated LAB HEMATOLOGY METHOD 07/03/2025 4:32 AM EDT [facility] Neutrophils % 62 % LAB HEMATOLOGY METHOD 07/03/2025 4:32 AM EDT [facility] Lymphocytes % 22 % LAB HEMATOLOGY METHOD 07/03/2025 4:32 AM EDT [facility] Monocytes % 14 % LAB HEMATOLOGY METHOD 07/03/2025 4:32 AM EDT [facility] Eosinophils % 2 % LAB HEMATOLOGY METHOD 07/03/2025 4:32 AM EDT [facility] Basophils % 0 % LAB HEMATOLOGY METHOD 07/03/2025 4:32 AM EDT [facility] Immature Granulocytes % 0 % LAB HEMATOLOGY METHOD 07/03/2025 4:32 AM EDT [facility] Neutrophils Absolute 1.58(L) 1.60 - 6.10 10*3/uL LAB HEMATOLOGY METHOD 07/03/2025 4:32 AM EDT [facility] Lymphocytes Absolute 0.58(L) 1.20 - 3.90 10*3/uL LAB HEMATOLOGY METHOD 07/03/2025 4:32 AM EDT [facility] Monocytes Absolute 0.36 0.30 - 0.90 10*3/uL LAB HEMATOLOGY METHOD 07/03/2025 4:32 AM EDT [facility] Eosinophils Absolute 0.06 0.00 - 0.50 10*3/uL LAB HEMATOLOGY METHOD 07/03/2025 4:32 AM EDT [facility] Basophils Absolute 0.01 0.00 - 0.10 10*3/uL LAB HEMATOLOGY METHOD 07/03/2025 4:32 AM EDT [facility] Immature Granulocytes Absolute 0.01 0.00 - 0.06 10*3/uL LAB HEMATOLOGY METHOD 07/03/2025 4:32 AM EDT [facility] Blood Venous blood specimen / Unknown Venipuncture / Unknown 07/03/2025 4:25 AM EDT 07/03/2025 4:29 AM EDT Narrative [facility] - 07/03/2025 4:32 AM EDT Therapeutic decision making should be based on absolute values, rather than percentages. us Chilo Morales MD LAB BLOOD ORDERABLES Final Result [facility] [address] [place] [address] * (ABNORMAL) POCT glucose meter (07/02/2025 8:19 PM EDT) [facility] POCT Glucose 150(H) 74 - 99 mg/dL 07/02/2025 8:21 PM EDT [facility] Comment:Accuracy of [...] to the main labortory for testing. Comment 07/02/2025 8:21 PM EDT [facility] Scrap Worker ID Zulma Link 07/02/2025 8:21 PM EDT [facility] Device ID [id number] 07/02/2025 8:21 PM EDT [facility] Specimen Type POC Capillary 07/02/2025 8:21 PM EDT [facility] Blood Capillary blood specimen / Unknown 07/02/2025 8:19 PM EDT 07/02/2025 8:21 PM EDT us Fabiana Cunningham MD LAB POINT OF CARE TE ST DOCKED DEVICE UNSOLICITED RESULTS Final Result Performing Organization Address City/State/[facility] de Phone Number [facility] [address] [place] [address] * (ABNORMAL) POCT glucose meter (07/02/2025 4:53 PM EDT) [facility] POCT Glucose 125(H) 74 - 99 mg/dL 07/02/2025 4:55 PM EDT [facility] Comment:Accuracy of [...] to the main labortory for testing. Comment 07/02/2025 4:55 PM EDT [facility] Scrap Worker ID Ashleigh Romero 4:55 PM EDT [facility] Device ID [id number] 07/02/2025 4:55 PM EDT [facility] Specimen Type POC Capillary 07/02/2025 4:55 PM EDT [facility] Blood Capillary blood specimen / Unknown 07/02/2025 4:53 PM EDT 07/02/2025 4:55 PM EDT us Fabiana Cunningham MD LAB POINT OF CARE TE ST DOCKED DEVICE UNSOLICITED RESULTS Final Result [facility] [address] [place] [address] * Sodium, urine, random (07/02/2025 12:42 PM EDT) Sodium, Urine <20 mmol/L 07/02/2025 1:41 PM EDT [facility] Urine Urine specimen obtained by clean catch procedure / Unknown Non-blood Collection / Unknown 07/02/2025 12:42 PM EDT 07/02/2025 1:01 PM EDT us Fabiana Cunningham MD LAB URINE ORDERABLES Final Resu lt Performing Organization Address [facility] Co de Phone Number [facility] [address] [place] [address] * Osmolality, urine (07/02/2025 12:42 PM EDT) Osmolality, Urine 467 50 - 1,200 mOsm/kg 07/02/2025 4:32 PM EDT [facility] Urine Urine specimen obtained by clean catch procedure / Unknown Non-blood Collection / Unknown 07/02/2025 12:42 PM EDT 07/02/2025 1:01 PM EDT us Fabiana Cunningham MD LAB URINE ORDERABLES Final Resu lt Performing Organization Address City/[facility] [address]/[facility] Co de Phone Number [facility] [address] [place] [address] * Creatinine, urine, random (07/02/2025 12:42 PM EDT) Creatinine, Urine 146 mg/dL 07/02/2025 1:41 PM EDT [facility] Urine Urine specimen obtained by clean catch procedure / Unknown Non-blood Collection / Unknown 07/02/2025 12:42 PM EDT 07/02/2025 1:01 PM EDT us Fabiana Cunningham MD LAB URINE ORDERABLES Final Resu lt Performing Organization Address City/[facility] [address]/[facility] Co de Phone Number [facility] [address] [place] [address] * Urea nitrogen, urine (07/02/2025 12:42 PM EDT) Pathologist [facility] Urea Nitrogen, Urine 821 mg/dL 07/02/2025 4:26 PM EDT [facility] Urine Urine specimen obtained by clean catch procedure / Unknown Non-blood Collection / Unknown 07/02/2025 12:42 PM EDT 07/02/2025 1:01 PM EDT Fabiana Cunningham MD LAB URINE ORDERABLES Final Resu lt Performing Organization Address City/[facility] [address]/ZIP Co de Phone Number [facility] [address] [place] [address] * (ABNORMAL) POCT glucose meter (07/02/2025 12:04 PM EDT) [facility] POCT Glucose 189(H) 74 - 99 mg/dL 07/02/2025 12:06 PM EDT [facility] Comment:Accuracy of a glucos e result obtained from a capillary whole blood specimen relies upon adequate, non-compromised capillary blood flow. If the capillary glucose result is not consistent with the patient's clinical signs and symptoms, glucose testing should be repeated with either an arterial or venous sample on the glucometer or sent to the main labortory for testing. Comment 07/02/2025 12:06 PM EDT [facility] Scrap Worker ID Jake Gallegos 07/02/2025 12:06 PM EDT [facility] LAB Device ID [id number] 07/02/2025 12:06 PM EDT [facility] Specimen Type POC Capillary 07/02/2025 12:06 PM EDT [facility] Blood Capillary blood specimen / Unknown 07/02/2025 12:04 PM EDT 07/02/2025 12:06 PM EDT us Fabiana Cunningham MD LAB POINT OF CARE TE ST DOCKED DEVICE UNSOLICITED RESULTS Final Result Performing Organization Address City/[facility] [address]/ZIP Co de Phone Number [facility] [address] [place] [address] * (ABNORMAL) POCT glucose meter (07/02/2025 8:20 AM EDT) [facility] POCT Glucose 115(H) 74 - 99 mg/dL 07/02/2025 8:22 AM EDT [facility] Comment:Accuracy of a glucos e result obtained from a capillary whole blood specimen relies upon adequate, non-compromised capillary blood flow. If the capillary glucose result is not consistent with the patient's clinical signs and symptoms, glucose testing should be repeated with either an arterial or venous sample on the glucometer or sent to the main labortory for testing. Comment 07/02/2025 8:22 AM EDT [facility] Scrap Worker ID Ashleigh Romero 8:22 AM EDT [facility] Device ID [id number] 07/02/2025 8:22 AM EDT [facility] Specimen Type POC Capillary 07/02/2025 8:22 AM EDT [facility] Blood Capillary blood specimen / Unknown 07/02/2025 8:20 AM EDT 07/02/2025 8:22 AM EDT Fabiana Cunningham MD LAB POINT OF CARE TE ST DOCKED DEVICE UNSOLICITED RESULTS Final Result [facility] [address] [place] [address] * (ABNORMAL) Comprehensive metabolic panel (07/02/2025 4:19 AM EDT) [facility] Glucose, Plasma 115(H) 74 - 99 mg/dL 07/02/2025 4:58 AM EDT [facility] BUN, Plasma 32(H) 8 - 23 mg/dL 07/02/2025 4:58 AM EDT [facility] Creatinine, Plasma 1.73(H) 0.60 - 1.10 mg/dL 07/02/2025 4:58 AM EDT [facility] BUN/Creatinine Ratio 18 07/02/2025 4:58 AM EDT [facility] Sodium, Plasma 134(L) 136 - 145 mmol/L 07/02/2025 4:58 AM EDT [facility] Potassium, Plasma 4.1 3.6 - 4.9 mmol/L 07/02/2025 4:58 AM EDT [facility] Chloride, Plasma 108(H) 97 - 107 mmol/L 07/02/2025 4:58 AM EDT [facility] CO2, Plasma 18(L) 22 - 29 mmol/L 07/02/2025 4:58 AM EDT [facility] Anion Gap 8 6 - 16 mmol/L 07/02/2025 4:58 AM EDT [facility] Total Calcium, Plasma 8.1(L) 8.9 - 10.2 mg/dL 07/02/2025 4:58 AM EDT [facility] Total Protein 5.8(L) 6.3 - 7.9 g/dL 07/02/2025 4:58 AM EDT [facility] Albumin, Plasma 2.8(L) 3.5 - 5.2 g/dL 07/02/2025 4:58 AM EDT [facility] AST, Plasma 40(H) 10 - 35 U/L 07/02/2025 4:58 AM EDT [facility] ALT, Plasma 21 10 - 35 U/L 07/02/2025 4:58 AM EDT [facility] Alkaline Phosphatase, Plasma 182(H) 46 - 142 U/L 07/02/2025 4:58 AM EDT [facility] Total Bilirubin, Plasma 2.8(H) 0.2 - 1.1 mg/dL 07/02/2025 4:58 AM EDT [facility] eGFRcr 33.1 mL/min/1.7 3m*2 07/02/2025 4:58 AM EDT [facility] Comment:Reported eGFRcr in m L/min/1.73m2 is based the CKD-EPI 2020 equation that does not use a race coefficient. Blood Venous blood specimen / Unknown Venipuncture / Unknown 07/02/2025 4:19 AM EDT 07/02/2025 4:33 AM EDT us Chilo Morales MD LAB BLOOD ORDERABLES Final Result [facility] [address] [place] [address] * Phosphorus, Plasma (07/02/2025 4:19 AM EDT) Phosphorus, Plasma 3.1 2.5 - 4.5 mg/dL 07/02/2025 4:58 AM EDT [facility] Blood Venous blood specimen / Unknown Venipuncture / Unknown 07/02/2025 4:19 AM EDT 07/02/2025 4:33 AM EDT us Chilo Morales MD LAB BLOOD ORDERABLES Final Result Performing Organization Address City/[facility] [address]/[facility] Co de Phone Number [facility] [address] [place] [address] * (ABNORMAL) Magnesium, Plasma (07/02/2025 4:19 AM EDT) Pathologist [facility] Magnesium, Plasma 1.8(L) 1.9 - 2.4 mg/dL 07/02/2025 4:58 AM EDT [facility] Blood Venous blood specimen / Unknown Venipuncture / Unknown 07/02/2025 4:19 AM EDT 07/02/2025 4:33 AM EDT Chilo Morales MD LAB BLOOD ORDERABLES Final Result Performing Organization Address City/[facility] [address]/[facility] de Phone Number [facility] [address] [place] [address] * (ABNORMAL) CBC and Differential (07/02/2025 4:19 AM EDT) Pathologist [facility] WBC Count 3.07(L) 3.70 - 10.30 10*3/uL LAB HEMATOLOGY METHOD 07/02/2025 4:35 AM EDT [facility] RBC Count 2.67(L) 3.90 - 5.20 10*6/uL LAB HEMATOLOGY METHOD 07/02/2025 4:35 AM EDT [facility] HGB 8.3(L) 11.2 - 15.7 g/dL LAB HEMATOLOGY METHOD 07/02/2025 4:35 AM EDT [facility] HCT 24.5(L) 34.0 - 45.0 % LAB HEMATOLOGY METHOD 07/02/2025 4:35 AM EDT [facility] Platelet Count 51(L) 155 - 369 10*3/uL LAB HEMATOLOGY METHOD 07/02/2025 4:35 AM EDT [facility] MCV 92 79 - 98 fL LAB HEMATOLOGY METHOD 07/02/2025 4:35 AM EDT [facility] MCH 31.1 26.0 - 32.0 pg LAB HEMATOLOGY METHOD 07/02/2025 4:35 AM EDT [facility] MCHC 33.9 30.7 - 35.5 g/dL LAB HEMATOLOGY METHOD 07/02/2025 4:35 AM EDT [facility] RDW 15.3(H) 11.5 - 14.5 % LAB HEMATOLOGY METHOD 07/02/2025 4:35 AM EDT [facility] MPV 12.6(H) 8.8 - 12.5 fL LAB HEMATOLOGY METHOD 07/02/2025 4:35 AM EDT [facility] nRBC 0.0 <=0.0 per 100 WBCs LAB HEMATOLOGY METHOD 07/02/2025 4:35 AM EDT [facility] Differential Type Automated LAB HEMATOLOGY METHOD 07/02/2025 4:35 AM EDT [facility] Neutrophils % 55 % LAB HEMATOLOGY METHOD 07/02/2025 4:35 AM EDT [facility] Lymphocytes % 25 % LAB HEMATOLOGY METHOD 07/02/2025 4:35 AM EDT [facility] Monocytes % 17 % LAB HEMATOLOGY METHOD 07/02/2025 4:35 AM EDT [facility] Eosinophils % 3 % LAB HEMATOLOGY METHOD 07/02/2025 4:35 AM EDT [facility] Basophils % 0 % LAB HEMATOLOGY METHOD 07/02/2025 4:35 AM EDT [facility] Immature Granulocytes % 0 % LAB HEMATOLOGY METHOD 07/02/2025 4:35 AM EDT [facility] Neutrophils Absolute 1.66 1.60 - 6.10 10*3/uL LAB HEMATOLOGY METHOD 07/02/2025 4:35 AM EDT [facility] Lymphocytes Absolute 0.78(L) 1.20 - 3.90 10*3/uL LAB HEMATOLOGY METHOD 07/02/2025 4:35 AM EDT [facility] Monocytes Absolute 0.53 0.30 - 0.90 10*3/uL LAB HEMATOLOGY METHOD 07/02/2025 4:35 AM EDT [facility] Eosinophils Absolute 0.08 0.00 - 0.50 10*3/uL LAB HEMATOLOGY METHOD 07/02/2025 4:35 AM EDT [facility] Basophils Absolute 0.01 0.00 - 0.10 10*3/uL LAB HEMATOLOGY METHOD 07/02/2025 4:35 AM EDT [facility] Immature Granulocytes Absolute 0.01 0.00 - 0.06 10*3/uL LAB HEMATOLOGY METHOD 07/02/2025 4:35 AM EDT [facility] Blood Venous blood specimen / Unknown Venipuncture / Unknown 07/02/2025 4:19 AM EDT 07/02/2025 4:32 AM EDT Narrative [facility] - 07/02/2025 4:35 AM EDT Therapeutic decision making should be based on absolute values, rather than percentages. us Chilo Morales MD LAB BLOOD ORDERABLES Final Result Performing Organization Address City/[facility] [address]/ZIP Co de Phone Number [facility] [address] [place] [address] * (ABNORMAL) POCT glucose meter (07/01/2025 8:01 PM EDT) [facility] POCT Glucose 122(H) 74 - 99 mg/dL 07/01/2025 8:02 PM EDT [facility] Comment:Accuracy of [...] to the main labortory for testing. Comment 07/01/2025 8:02 PM EDT [facility] Scrap Worker ID Sandra Collins 07/01/2025 8:02 PM EDT [facility] Device ID [id number] 07/01/2025 8:02 PM EDT [facility] Specimen Type POC Capillary 07/01/2025 8:02 PM EDT [facility] Blood Capillary blood specimen / Unknown 07/01/2025 8:01 PM EDT 07/01/2025 8:02 PM EDT us Fabiana Cunningham MD LAB POINT OF CARE TE ST DOCKED DEVICE UNSOLICITED RESULTS Final Result Performing Organization Address City/[facility] [address]/ZIP Co de Phone Number [facility] [address] [place] [address] * (ABNORMAL) POCT glucose meter (07/01/2025 4:37 PM EDT) POCT Glucose 136(H) 74 - 99 mg/dL 07/01/2025 4:38 PM EDT [facility] Comment:Accuracy of a glucos e result obtained from a capillary whole blood specimen relies upon adequate, non-compromised capillary blood flow. If the capillary glucose result is not consistent with the patient's clinical signs and symptoms, glucose testing should be repeated with either an arterial or venous sample on the glucometer or sent to the main labortory for testing. Comment 07/01/2025 4:38 PM EDT [facility] Scrap Worker ID Ashleigh Romero 4:38 PM EDT [facility] Device ID [id number] 07/01/2025 4:38 PM EDT [facility] Specimen Type POC Capillary 07/01/2025 4:38 PM EDT [facility] Blood Capillary blood specimen / Unknown 07/01/2025 4:37 PM EDT 07/01/2025 4:38 PM EDT Fabiana Cunningham MD LAB POINT OF CARE TE ST DOCKED DEVICE UNSOLICITED RESULTS Final Result [facility] [address] [place] [address] * (ABNORMAL) POCT glucose meter (07/01/2025 12:10 PM EDT) [facility] POCT Glucose 257(H) 74 - 99 mg/dL 07/01/2025 12:12 PM EDT [facility] Comment:Accuracy of [...] to the main labortory for testing. Comment 07/01/2025 12:12 PM EDT [facility] Scrap Worker ID Ashleigh Romero 12:12 PM EDT [facility] Device ID [id number] 07/01/2025 12:12 PM EDT [facility] Specimen Type POC Capillary 07/01/2025 12:12 PM EDT [facility] Blood Capillary blood specimen / Unknown 07/01/2025 12:10 PM EDT 07/01/2025 12:12 PM EDT Fabiana Cunningham MD LAB POINT OF CARE TE ST DOCKED DEVICE UNSOLICITED RESULTS Final Result Performing Organization Address [facility] Co de Phone Number [facility] [address] [place] [address] * (ABNORMAL) Protime-INR (07/01/2025 9:08 AM EDT) Prothrombin Time 19.9(H) 12.0 - 14.3 sec 07/01/2025 9:45 AM EDT [facility] INR 1.7(H) 0.9 - 1.1 07/01/2025 9:45 AM EDT [facility] Blood Venous blood specimen / Unknown Venipuncture / Unknown 07/01/2025 9:08 AM EDT 07/01/2025 9:21 AM EDT Narrative [facility] - 07/01/2025 9:45 AM EDT OPTIMAL INR RANGES FOR PATIENT ON ORAL ANTICOAGULANT THERAPY Prevention of venous thromboembolism INR 2.0 to 3.0 In patients with heart disease: Atrial fibrillation INR 2.0 to 3.0 Valvular heart disease INR 2.0 to 3.0 Tissue heart valves INR 2.0 to 3.0 Mechanical prosthetic valves INR 2.5 to 3.5 Prevention of recurrent [place] INR 2.5 to 3.5 us Yeni Lebron APRN, ANGELLA LAB BLOOD ORDERABLES Final Result Performing Organization Address [facility] de Phone Number [facility] [address] [place] [address] * (ABNORMAL) POCT glucose meter (07/01/2025 8:04 AM EDT) POCT Glucose 126(H) 74 - 99 mg/dL 07/01/2025 8:06 AM EDT [facility] Comment:Accuracy of a glucos e result obtained from a capillary whole blood specimen relies upon adequate, non-compromised capillary blood flow. If the capillary glucose result is not consistent with the patient's clinical signs and symptoms, glucose testing should be repeated with either an arterial or venous sample on the glucometer or sent to the main labortory for testing. Comment 07/01/2025 8:06 AM EDT [facility] Scrap Worker ID Ashleigh Romero 8:06 AM EDT [facility] Device ID [id number] 07/01/2025 8:06 AM EDT [facility] Specimen Type POC Capillary 07/01/2025 8:06 AM EDT [facility] Blood Capillary blood specimen / Unknown 07/01/2025 8:04 AM EDT 07/01/2025 8:06 AM EDT us Fabiana Cunningham MD LAB POINT OF CARE TE ST DOCKED DEVICE UNSOLICITED RESULTS Final Result Performing Organization Address City/State/[facility] Co de Phone Number [facility] [address] [place] [address] * (ABNORMAL) Comprehensive metabolic panel (07/01/2025 12:00 AM EDT) Glucose, Plasma 154(H) 74 - 99 mg/dL 07/01/2025 12:25 AM EDT [facility] BUN, Plasma 27(H) 8 - 23 mg/dL 07/01/2025 12:25 AM EDT [facility] Creatinine, Plasma 1.42(H) 0.60 - 1.10 mg/dL 07/01/2025 12:25 AM EDT [facility] BUN/Creatinine Ratio 19 07/01/2025 12:25 AM EDT [facility] Sodium, Plasma 135(L) 136 - 145 mmol/L 07/01/2025 12:25 AM EDT [facility] Potassium, Plasma 4.3 3.6 - 4.9 mmol/L 07/01/2025 12:25 AM EDT [facility] Chloride, Plasma 108(H) 97 - 107 mmol/L 07/01/2025 12:25 AM EDT [facility] CO2, Plasma 18(L) 22 - 29 mmol/L 07/01/2025 12:25 AM EDT [facility] Anion Gap 9 6 - 16 mmol/L 07/01/2025 12:25 AM EDT [facility] Total Calcium, Plasma 8.7(L) 8.9 - 10.2 mg/dL 07/01/2025 12:25 AM EDT [facility] Total Protein 6.0(L) 6.3 - 7.9 g/dL 07/01/2025 12:25 AM EDT [facility] Albumin, Plasma 2.9(L) 3.5 - 5.2 g/dL 07/01/2025 12:25 AM EDT [facility] AST, Plasma 46(H) 10 - 35 U/L 07/01/2025 12:25 AM EDT [facility] ALT, Plasma 21 10 - 35 U/L 07/01/2025 12:25 AM EDT [facility] Alkaline Phosphatase, Plasma 184(H) 46 - 142 U/L 07/01/2025 12:25 AM EDT [facility] Total Bilirubin, Plasma 2.9(H) 0.2 - 1.1 mg/dL 07/01/2025 12:25 AM EDT [facility] eGFRcr 41.9 mL/min/1.7 3m*2 07/01/2025 12:25 AM EDT [facility] Comment:Reported eGFRcr in m L/min/1.73m2 is based the CKD-EPI 2020 equation that does not use a race coefficient. Blood Venous blood specimen / Unknown Venipuncture / Unknown 07/01/2025 12:00 AM EDT 07/01/2025 12:03 AM EDT us Chilo Morales MD LAB BLOOD ORDERABLES Final Result [facility] [address] [place] [address] * Phosphorus, Plasma (07/01/2025 12:00 AM EDT) Phosphorus, Plasma 2.7 2.5 - 4.5 mg/dL 07/01/2025 12:25 AM EDT [facility] Blood Venous blood specimen / Unknown Venipuncture / Unknown 07/01/2025 12:00 AM EDT 07/01/2025 12:03 AM EDT us Chilo Morales MD LAB BLOOD ORDERABLES Final Result [facility] [address] [place] [address] * Magnesium, Plasma (07/01/2025 12:00 AM EDT) Pathologist [facility] Magnesium, Plasma 1.9 1.9 - 2.4 mg/dL 07/01/2025 12:25 AM EDT [facility] Blood Venous blood specimen / Unknown Venipuncture / Unknown 07/01/2025 12:00 AM EDT 07/01/2025 12:03 AM EDT us Chilo Morales MD LAB BLOOD ORDERABLES Final Result [facility] [address] [place] [address] * (ABNORMAL) CBC and Differential (07/01/2025 12:00 AM EDT) Pathologist [facility] WBC Count 3.15(L) 3.70 - 10.30 10*3/uL LAB HEMATOLOGY METHOD 07/01/2025 12:06 AM EDT [facility] RBC Count 2.81(L) 3.90 - 5.20 10*6/uL LAB HEMATOLOGY METHOD 07/01/2025 12:06 AM EDT [facility] HGB 8.6(L) 11.2 - 15.7 g/dL LAB HEMATOLOGY METHOD 07/01/2025 12:06 AM EDT [facility] HCT 25.5(L) 34.0 - 45.0 % LAB HEMATOLOGY METHOD 07/01/2025 12:06 AM EDT [facility] Platelet Count 47(L) 155 - 369 10*3/uL LAB HEMATOLOGY METHOD 07/01/2025 12:06 AM EDT [facility] MCV 91 79 - 98 fL LAB HEMATOLOGY METHOD 07/01/2025 12:06 AM EDT [facility] MCH 30.6 26.0 - 32.0 pg LAB HEMATOLOGY METHOD 07/01/2025 12:06 AM EDT [facility] MCHC 33.7 30.7 - 35.5 g/dL LAB HEMATOLOGY METHOD 07/01/2025 12:06 AM EDT [facility] RDW 15.0(H) 11.5 - 14.5 % LAB HEMATOLOGY METHOD 07/01/2025 12:06 AM EDT [facility] MPV 11.6 8.8 - 12.5 fL LAB HEMATOLOGY METHOD 07/01/2025 12:06 AM EDT [facility] nRBC 0.0 <=0.0 per 100 WBCs LAB HEMATOLOGY METHOD 07/01/2025 12:06 AM EDT [facility] Differential Type Automated LAB HEMATOLOGY METHOD 07/01/2025 12:06 AM EDT [facility] Neutrophils % 57 % LAB HEMATOLOGY METHOD 07/01/2025 12:06 AM EDT [facility] Lymphocytes % 24 % LAB HEMATOLOGY METHOD 07/01/2025 12:06 AM EDT [facility] Monocytes % 16 % LAB HEMATOLOGY METHOD 07/01/2025 12:06 AM EDT [facility] Eosinophils % 3 % LAB HEMATOLOGY METHOD 07/01/2025 12:06 AM EDT [facility] Basophils % 0 % LAB HEMATOLOGY METHOD 07/01/2025 12:06 AM EDT [facility] Immature Granulocytes % 0 % LAB HEMATOLOGY METHOD 07/01/2025 12:06 AM EDT [facility] Neutrophils Absolute 1.79 1.60 - 6.10 10*3/uL LAB HEMATOLOGY METHOD 07/01/2025 12:06 AM EDT [facility] Lymphocytes Absolute 0.75(L) 1.20 - 3.90 10*3/uL LAB HEMATOLOGY METHOD 07/01/2025 12:06 AM EDT [facility] Monocytes Absolute 0.50 0.30 - 0.90 10*3/uL LAB HEMATOLOGY METHOD 07/01/2025 12:06 AM EDT [facility] Eosinophils Absolute 0.09 0.00 - 0.50 10*3/uL LAB HEMATOLOGY METHOD 07/01/2025 12:06 AM EDT [facility] Basophils Absolute 0.01 0.00 - 0.10 10*3/uL LAB HEMATOLOGY METHOD 07/01/2025 12:06 AM EDT [facility] Immature Granulocytes Absolute 0.01 0.00 - 0.06 10*3/uL LAB HEMATOLOGY METHOD 07/01/2025 12:06 AM EDT [facility] Blood Venous blood specimen / Unknown Venipuncture / Unknown 07/01/2025 12:00 AM EDT 07/01/2025 12:03 AM EDT [facility] - 07/01/2025 12:06 AM EDT Therapeutic decision making should be based on absolute values, rather than percentages. us Chilo Morales MD LAB BLOOD ORDERABLES Final Result Performing Organization Address City/[facility] [address]/[facility] Co de Phone Number [facility] [address] [place] [address] * (ABNORMAL) POCT glucose meter (06/30/2025 8:52 PM EDT) POCT Glucose 185(H) 74 - 99 mg/dL 06/30/2025 8:54 PM EDT [facility] Comment:Accuracy of a glucos e result obtained from a capillary whole blood specimen relies upon adequate, non-compromised capillary blood flow. If the capillary glucose result is not consistent with the patient's clinical signs and symptoms, glucose testing should be repeated with either an arterial or venous sample on the glucometer or sent to the main labortory for testing. Comment 06/30/2025 8:54 PM EDT [facility] Scrap Worker ID Love Gore 8:54 PM EDT [facility] Device ID [id number] 06/30/2025 8:54 PM EDT [facility] Specimen Type POC Capillary 06/30/2025 8:54 PM EDT [facility] Blood Capillary blood specimen / Unknown 06/30/2025 8:52 PM EDT 06/30/2025 8:54 PM EDT us Fabiana Cunningham MD LAB POINT OF CARE TE ST DOCKED DEVICE UNSOLICITED RESULTS Final Result Performing Organization Address City/[facility] [address]/[facility] Co de Phone Number [facility] [address] [place] [address] * (ABNORMAL) POCT glucose meter (06/30/2025 4:40 PM EDT) POCT Glucose 169(H) 74 - 99 mg/dL 06/30/2025 4:41 PM EDT [facility] Comment:Accuracy of a glucos e result obtained from a capillary whole blood specimen relies upon adequate, non-compromised capillary blood flow. If the capillary glucose result is not consistent with the patient's clinical signs and symptoms, glucose testing should be repeated with either an arterial or venous sample on the glucometer or sent to the main labortory for testing. Comment 06/30/2025 4:41 PM EDT [facility] Scrap Worker ID Nadia Salazar 4:41 PM EDT [facility] Device ID [id number] 06/30/2025 4:41 PM EDT [facility] Specimen Type POC Capillary 06/30/2025 4:41 PM EDT [facility] Blood Capillary blood specimen / Unknown 06/30/2025 4:40 PM EDT 06/30/2025 4:41 PM EDT us Fabiana Cunningham MD LAB POINT OF CARE TE ST DOCKED DEVICE UNSOLICITED RESULTS Final Result Performing Organization Address City/[facility] [address]/[facility] Co de Phone Number [facility] [address] [place] [address] * (ABNORMAL) POCT glucose meter (06/30/2025 11:48 AM EDT) POCT Glucose 237(H) 74 - 99 mg/dL 06/30/2025 11:50 AM EDT [facility] Comment:Accuracy of a glucos e result obtained from a capillary whole blood specimen relies upon adequate, non-compromised capillary blood flow. If the capillary glucose result is not consistent with the patient's clinical signs and symptoms, glucose testing should be repeated with either an arterial or venous sample on the glucometer or sent to the main labortory for testing. Comment 06/30/2025 11:50 AM EDT [facility] Scrap Worker ID Nadia Salazar 11:50 AM EDT [facility] Device ID [id number] 06/30/2025 11:50 AM EDT [facility] Specimen Type POC Capillary 06/30/2025 11:50 AM EDT [facility] Blood Capillary blood specimen / Unknown 06/30/2025 11:48 AM EDT 06/30/2025 11:50 AM EDT us Fabiana Cunningham MD LAB POINT OF CARE TE ST DOCKED DEVICE UNSOLICITED RESULTS Final Result Performing Organization Address City/[facility] [address]/ZIP Co de Phone Number [facility] [address] [place] [address] * (ABNORMAL) Ammonia, Plasma (06/30/2025 8:53 AM EDT) Pathologist [facility] Ammonia 61(H) 11 - 51 umol/L 06/30/2025 9:26 AM EDT [facility] Blood Venous blood specimen / Unknown Venipuncture / Unknown 06/30/2025 8:53 AM EDT 06/30/2025 9:01 AM EDT us Fabiana Cunningham MD LAB BLOOD ORDERABLES Final Resu lt Performing Organization Address [facility] [address]/[facility] Co de Phone Number [facility] [address] [place] [address] * (ABNORMAL) POCT glucose meter (06/30/2025 7:40 AM EDT) [facility] POCT Glucose 128(H) 74 - 99 mg/dL 06/30/2025 7:41 AM EDT [facility] Comment:Accuracy of a glucos e result obtained from a capillary whole blood specimen relies upon adequate, non-compromised capillary blood flow. If the capillary glucose result is not consistent with the patient's clinical signs and symptoms, glucose testing should be repeated with either an arterial or venous sample on the glucometer or sent to the main labortory for testing. Comment 06/30/2025 7:41 AM EDT [facility] Scrap Worker ID Nadia Salazar 7:41 AM EDT [facility] Device ID [id number] 06/30/2025 7:41 AM EDT [facility] Specimen Type POC Capillary 06/30/2025 7:41 AM EDT [facility] Blood Capillary blood specimen / Unknown 06/30/2025 7:40 AM EDT 06/30/2025 7:41 AM EDT us Fabiana Cunningham MD LAB POINT OF CARE TE ST DOCKED DEVICE UNSOLICITED RESULTS Final Result Performing Organization Address City/[facility] [address]/[facility] Co de Phone Number [facility] [address] [place] [address] * Peripheral blood smear, pathologist interpretation (06/30/2025 12:37 AM EDT) [facility] Clinical Diagnosis, Peripheral Smear Pancytopenia LAB HEMATOLOGY METHOD 07/01/2025 12:12 PM EDT [facility] Interpretation , Peripheral Smear Pancytopenia, not morphologically distinct 07/01/2025 12:12 PM EDT [facility] Pathologist Signature, Peripheral Smear 07/01/2025 12:12 PM EDT [facility] Comment:Reviewed by: Stacy King MD LAB CP ASR DISCLAIMER No 07/01/2025 12:12 PM EDT [facility] Blood Venous blood specimen / Unknown Venipuncture / Unknown 06/30/2025 12:37 AM EDT 06/30/2025 12:40 AM EDT us Fabiana Cunningham MD LAB PATHOLOGY ORDERABLES Final Result Performing Organization Address City/State/[facility] Co de Phone Number [facility] [address] [place] [phone] * (ABNORMAL) Comprehensive metabolic panel (06/30/2025 12:37 AM EDT) Glucose, Plasma 162(H) 74 - 99 mg/dL 06/30/2025 1:00 AM EDT [facility] BUN, Plasma 28(H) 8 - 23 mg/dL 06/30/2025 1:00 AM EDT [facility] Creatinine, Plasma 1.60(H) 0.60 - 1.10 mg/dL 06/30/2025 1:00 AM EDT [facility] BUN/Creatinine Ratio 18 06/30/2025 1:00 AM EDT [facility] Sodium, Plasma 135(L) 136 - 145 mmol/L 06/30/2025 1:00 AM EDT [facility] Potassium, Plasma 3.5(L) 3.6 - 4.9 mmol/L 06/30/2025 1:00 AM EDT [facility] Chloride, Plasma 107 97 - 107 mmol/L 06/30/2025 1:00 AM EDT [facility] CO2, Plasma 19(L) 22 - 29 mmol/L 06/30/2025 1:00 AM EDT [facility] [facility] Anion Gap 9 6 - 16 mmol/L 06/30/2025 1:00 AM EDT [facility] Total Calcium, Plasma 8.5(L) 8.9 - 10.2 mg/dL 06/30/2025 1:00 AM EDT [facility] Total Protein 5.7(L) 6.3 - 7.9 g/dL 06/30/2025 1:00 AM EDT [facility] Albumin, Plasma 2.9(L) 3.5 - 5.2 g/dL 06/30/2025 1:00 AM EDT [facility] AST, Plasma 45(H) 10 - 35 U/L 06/30/2025 1:00 AM EDT [facility] ALT, Plasma 21 10 - 35 U/L 06/30/2025 1:00 AM EDT [facility] Alkaline Phosphatase, Plasma 185(H) 46 - 142 U/L 06/30/2025 1:00 AM EDT [facility] Total Bilirubin, Plasma 2.9(H) 0.2 - 1.1 mg/dL 06/30/2025 1:00 AM EDT [facility] eGFRcr 36.3 mL/min/1.7 3m*2 06/30/2025 1:00 AM EDT [facility] Comment:Reported eGFRcr in m L/min/1.73m2 is based the CKD-EPI 2020 equation that does not use a race coefficient. Blood Venous blood specimen / Unknown Venipuncture / Unknown 06/30/2025 12:37 AM EDT 06/30/2025 12:40 AM EDT us Chilo Morales MD LAB BLOOD ORDERABLES Final Result Performing Organization Address City/[facility] [address]/ZIP Co de Phone Number [facility] [address] [place] [address] * Phosphorus, Plasma (06/30/2025 12:37 AM EDT) Phosphorus, Plasma 3.0 2.5 - 4.5 mg/dL 06/30/2025 1:00 AM EDT [facility] Blood Venous blood specimen / Unknown Venipuncture / Unknown 06/30/2025 12:37 AM EDT 06/30/2025 12:40 AM EDT us Chilo Morales MD LAB BLOOD ORDERABLES Final Result [facility] [address] [place] [address] * (ABNORMAL) Magnesium, Plasma (06/30/2025 12:37 AM EDT) Magnesium, Plasma 1.5(L) 1.9 - 2.4 mg/dL 06/30/2025 1:00 AM EDT [facility] Blood Venous blood specimen / Unknown Venipuncture / Unknown 06/30/2025 12:37 AM EDT 06/30/2025 12:40 AM EDT us Chilo Morales MD LAB BLOOD ORDERABLES Final Result [facility] [address] [place] [address] * (ABNORMAL) Peripheral Blood Smear (06/30/2025 12:37 AM EDT) WBC Count 2.74(L) 3.70 - 10.30 10*3/uL LAB HEMATOLOGY METHOD 06/30/2025 1:28 AM EDT [facility] RBC Count 2.74(L) 3.90 - 5.20 10*6/uL LAB HEMATOLOGY METHOD 06/30/2025 1:28 AM EDT [facility] HGB 8.4(L) 11.2 - 15.7 g/dL LAB HEMATOLOGY METHOD 06/30/2025 1:28 AM EDT [facility] HCT 24.8(L) 34.0 - 45.0 % LAB HEMATOLOGY METHOD 06/30/2025 1:28 AM EDT [facility] Platelet Count 40(L) 155 - 369 10*3/uL LAB HEMATOLOGY METHOD 06/30/2025 1:28 AM EDT [facility] MCV 91 79 - 98 fL LAB HEMATOLOGY METHOD 06/30/2025 1:28 AM EDT [facility] MCH 30.7 26.0 - 32.0 pg LAB HEMATOLOGY METHOD 06/30/2025 1:28 AM EDT [facility] MCHC 33.9 30.7 - 35.5 g/dL LAB HEMATOLOGY METHOD 06/30/2025 1:28 AM EDT [facility] RDW 15.3(H) 11.5 - 14.5 % LAB HEMATOLOGY METHOD 06/30/2025 1:28 AM EDT [facility] MPV 10.3 8.8 - 12.5 fL LAB HEMATOLOGY METHOD 06/30/2025 1:28 AM EDT [facility] nRBC 0.0 <=0.0 per 100 WBCs LAB HEMATOLOGY METHOD 06/30/2025 1:28 AM EDT [facility] Differential Type Automated LAB HEMATOLOGY METHOD 06/30/2025 1:28 AM EDT [facility] Neutrophils % 54 % LAB HEMATOLOGY METHOD 06/30/2025 1:28 AM EDT [facility] Lymphocytes % 27 % LAB HEMATOLOGY METHOD 06/30/2025 1:28 AM EDT [facility] Monocytes % 16 % LAB HEMATOLOGY METHOD 06/30/2025 1:28 AM EDT [facility] Eosinophils % 3 % LAB HEMATOLOGY METHOD 06/30/2025 1:28 AM EDT [facility] Basophils % 0 % LAB HEMATOLOGY METHOD 06/30/2025 1:28 AM EDT [facility] Immature Granulocytes % 0 % LAB HEMATOLOGY METHOD 06/30/2025 1:28 AM EDT [facility] Neutrophils Absolute 1.45(L) 1.60 - 6.10 10*3/uL LAB HEMATOLOGY METHOD 06/30/2025 1:28 AM EDT [facility] Lymphocytes Absolute 0.73(L) 1.20 - 3.90 10*3/uL LAB HEMATOLOGY METHOD 06/30/2025 1:28 AM EDT [facility] Monocytes Absolute 0.45 0.30 - 0.90 10*3/uL LAB HEMATOLOGY METHOD 06/30/2025 1:28 AM EDT [facility] Eosinophils Absolute 0.09 0.00 - 0.50 10*3/uL LAB HEMATOLOGY METHOD 06/30/2025 1:28 AM EDT [facility] Basophils Absolute 0.01 0.00 - 0.10 10*3/uL LAB HEMATOLOGY METHOD 06/30/2025 1:28 AM EDT [facility] Immature Granulocytes Absolute 0.01 0.00 - 0.06 10*3/uL LAB HEMATOLOGY METHOD 06/30/2025 1:28 AM EDT [facility] Blood Venous blood specimen / Unknown Venipuncture / Unknown 06/30/2025 12:37 AM EDT 06/30/2025 12:40 AM EDT [facility] - 06/30/2025 1:28 AM EDT Therapeutic decision making should be based on absolute values, rather than percentages. Fabiana Cunningham MD LAB PATHOLOGY ORDERABLES Final Result Performing Organization Address [facility] [address]/[facility] de Phone Number [facility] [address] [place] [address] * (ABNORMAL) POCT glucose meter (06/29/2025 8:07 PM EDT) POCT Glucose 164(H) 74 - 99 mg/dL 06/29/2025 8:09 PM EDT [facility] Comment:Accuracy of a glucos e result obtained from a capillary whole blood specimen relies upon adequate, non-compromised capillary blood flow. If the capillary glucose result is not consistent with the patient's clinical signs and symptoms, glucose testing should be repeated with either an arterial or venous sample on the glucometer or sent to the main labortory for testing. Comment 06/29/2025 8:09 PM EDT [facility] Scrap Worker ID Kacy Corrales 06/29/2025 8:09 PM EDT [facility] Device ID [id number] 06/29/2025 8:09 PM EDT [facility] Specimen Type POC Capillary 06/29/2025 8:09 PM EDT [facility] Blood Capillary blood specimen / Unknown 06/29/2025 8:07 PM EDT 06/29/2025 8:09 PM EDT Fabiana Cunningham MD LAB POINT OF CARE TE ST DOCKED DEVICE UNSOLICITED RESULTS Final Result Performing Organization Address City/[facility] [address]/[facility] de Phone Number [facility] [address] [place] [address] * (ABNORMAL) POCT glucose meter (06/29/2025 4:40 PM EDT) POCT Glucose 158(H) 74 - 99 mg/dL 06/29/2025 4:41 PM EDT [facility] Comment:Accuracy of a glucos e result obtained from a capillary whole blood specimen relies upon adequate, non-compromised capillary blood flow. If the capillary glucose result is not consistent with the patient's clinical signs and symptoms, glucose testing should be repeated with either an arterial or venous sample on the glucometer or sent to the main labortory for testing. Comment 06/29/2025 4:41 PM EDT [facility] Scrap Worker ID Ashleigh Romero 4:41 PM EDT [facility] Device ID [id number] 06/29/2025 4:41 PM EDT [facility] Specimen Type POC Capillary 06/29/2025 4:41 PM EDT [facility] Blood Capillary blood specimen / Unknown 06/29/2025 4:40 PM EDT 06/29/2025 4:41 PM EDT us Fabiana Cunningham MD LAB POINT OF CARE TE ST DOCKED DEVICE UNSOLICITED RESULTS Final Result Performing Organization Address City/[facility] [address]/ZIP Co de Phone Number [facility] [address] [place] [address] * (ABNORMAL) POCT glucose meter (06/29/2025 12:12 PM EDT) POCT Glucose 227(H) 74 - 99 mg/dL 06/29/2025 12:13 PM EDT [facility] Comment:Accuracy of [...] to the main labortory for testing. Comment 06/29/2025 12:13 PM EDT [facility] Scrap Worker ID Ashleigh Romero 12:13 PM EDT [facility] Device ID [id number] 06/29/2025 12:13 PM EDT [facility] Specimen Type POC Capillary 06/29/2025 12:13 PM EDT [facility] Blood Capillary blood specimen / Unknown 06/29/2025 12:12 PM EDT 06/29/2025 12:13 PM EDT us Fabiana Cunningham MD LAB POINT OF CARE TE ST DOCKED DEVICE UNSOLICITED RESULTS Final Result Performing Organization Address City/[facility] [address]/ZIP Co de Phone Number [facility] [address] [place] [address] * (ABNORMAL) POCT glucose meter (06/29/2025 8:05 AM EDT) POCT Glucose 144(H) 74 - 99 mg/dL 06/29/2025 8:07 AM EDT [facility] Comment:Accuracy of a glucos e result obtained from a capillary whole blood specimen relies upon adequate, non-compromised capillary blood flow. If the capillary glucose result is not consistent with the patient's clinical signs and symptoms, glucose testing should be repeated with either an arterial or venous sample on the glucometer or sent to the main labortory for testing. Comment 06/29/2025 8:07 AM EDT [facility] Scrap Worker ID Ashleigh Romero 8:07 AM EDT [facility] Device ID [id number] 06/29/2025 8:07 AM EDT [facility] Specimen Type POC Capillary 06/29/2025 8:07 AM EDT [facility] Blood Capillary blood specimen / Unknown 06/29/2025 8:05 AM EDT 06/29/2025 8:07 AM EDT us Fabiana Cunningham MD LAB POINT OF CARE TE ST DOCKED DEVICE UNSOLICITED RESULTS Final Result Performing Organization Address City/State/[facility] Co de Phone Number [facility] [address] [place] [phone] * (ABNORMAL) Comprehensive metabolic panel (06/29/2025 12:18 AM EDT) Glucose, Plasma 159(H) 74 - 99 mg/dL 06/29/2025 12:51 AM EDT [facility] BUN, Plasma 26(H) 8 - 23 mg/dL 06/29/2025 12:51 AM EDT [facility] Creatinine, Plasma 1.49(H) 0.60 - 1.10 mg/dL 06/29/2025 12:51 AM EDT [facility] BUN/Creatinine Ratio 17 06/29/2025 12:51 AM EDT [facility] Sodium, Plasma 137 136 - 145 mmol/L 06/29/2025 12:51 AM EDT [facility] Potassium, Plasma 3.4(L) 3.6 - 4.9 mmol/L 06/29/2025 12:51 AM EDT [facility] Chloride, Plasma 108(H) 97 - 107 mmol/L 06/29/2025 12:51 AM EDT [facility] CO2, Plasma 19(L) 22 - 29 mmol/L 06/29/2025 12:51 AM EDT [facility] Anion Gap 10 6 - 16 mmol/L 06/29/2025 12:51 AM EDT [facility] Total Calcium, Plasma 8.7(L) 8.9 - 10.2 mg/dL 06/29/2025 12:51 AM EDT [facility] Total Protein 5.9(L) 6.3 - 7.9 g/dL 06/29/2025 12:51 AM EDT [facility] Albumin, Plasma 3.0(L) 3.5 - 5.2 g/dL 06/29/2025 12:51 AM EDT [facility] AST, Plasma 50(H) 10 - 35 U/L 06/29/2025 12:51 AM EDT [facility] ALT, Plasma 21 10 - 35 U/L 06/29/2025 12:51 AM EDT [facility] Alkaline Phosphatase, Plasma 201(H) 46 - 142 U/L 06/29/2025 12:51 AM EDT [facility] Total Bilirubin, Plasma 2.4(H) 0.2 - 1.1 mg/dL 06/29/2025 12:51 AM EDT [facility] eGFRcr 39.6 mL/min/1.7 3m*2 06/29/2025 12:51 AM EDT [facility] Comment:Reported eGFRcr in m L/min/1.73m2 is based the CKD-EPI 2020 equation that does not use a race coefficient. Blood Venous blood specimen / Unknown Venipuncture / Unknown 06/29/2025 12:18 AM EDT 06/29/2025 12:24 AM EDT us Chilo Morales MD LAB BLOOD ORDERABLES Final Result [facility] [address] [place] [address] * Phosphorus, Plasma (06/29/2025 12:18 AM EDT) Phosphorus, Plasma 3.2 2.5 - 4.5 mg/dL 06/29/2025 12:51 AM EDT [facility] Blood Venous blood specimen / Unknown Venipuncture / Unknown 06/29/2025 12:18 AM EDT 06/29/2025 12:24 AM EDT Chlio Morales MD LAB BLOOD ORDERABLES Final Result Performing Organization Address City/[facility] [address]/ZIP Co de Phone Number [facility] [address] [place] [address] * (ABNORMAL) Magnesium, Plasma (06/29/2025 12:18 AM EDT) Magnesium, Plasma 1.8(L) 1.9 - 2.4 mg/dL 06/29/2025 12:51 AM EDT [facility] Blood Venous blood specimen / Unknown Venipuncture / Unknown 06/29/2025 12:18 AM EDT 06/29/2025 12:24 AM EDT Chilo Morales MD LAB BLOOD ORDERABLES Final Result Performing Organization Address City/[facility] [address]/[facility] de Phone Number [facility] [address] [place] [address] * (ABNORMAL) CBC and Differential (06/29/2025 12:18 AM EDT) WBC Count 2.22(L) 3.70 - 10.30 10*3/uL LAB HEMATOLOGY METHOD 06/29/2025 12:49 AM EDT [facility] RBC Count 2.86(L) 3.90 - 5.20 10*6/uL LAB HEMATOLOGY METHOD 06/29/2025 12:49 AM EDT [facility] HGB 8.8(L) 11.2 - 15.7 g/dL LAB HEMATOLOGY METHOD 06/29/2025 12:49 AM EDT [facility] HCT 25.5(L) 34.0 - 45.0 % LAB HEMATOLOGY METHOD 06/29/2025 12:49 AM EDT [facility] Platelet Count 39(L) 155 - 369 10*3/uL LAB HEMATOLOGY METHOD 06/29/2025 12:49 AM EDT [facility] MCV 89 79 - 98 fL LAB HEMATOLOGY METHOD 06/29/2025 12:49 AM EDT [facility] MCH 30.8 26.0 - 32.0 pg LAB HEMATOLOGY METHOD 06/29/2025 12:49 AM EDT [facility] MCHC 34.5 30.7 - 35.5 g/dL LAB HEMATOLOGY METHOD 06/29/2025 12:49 AM EDT [facility] RDW 15.4(H) 11.5 - 14.5 % LAB HEMATOLOGY METHOD 06/29/2025 12:49 AM EDT [facility] MPV 10.6 8.8 - 12.5 fL LAB HEMATOLOGY METHOD 06/29/2025 12:49 AM EDT [facility] nRBC 0.0 <=0.0 per 100 WBCs LAB HEMATOLOGY METHOD 06/29/2025 12:49 AM EDT [facility] Differential Type Automated LAB HEMATOLOGY METHOD 06/29/2025 12:49 AM EDT [facility] Neutrophils % 46 % LAB HEMATOLOGY METHOD 06/29/2025 12:49 AM EDT [facility] Lymphocytes % 28 % LAB HEMATOLOGY METHOD 06/29/2025 12:49 AM EDT [facility] Monocytes % 22 % LAB HEMATOLOGY METHOD 06/29/2025 12:49 AM EDT [facility] Eosinophils % 3 % LAB HEMATOLOGY METHOD 06/29/2025 12:49 AM EDT [facility] Basophils % 1 % LAB HEMATOLOGY METHOD 06/29/2025 12:49 AM EDT [facility] Immature Granulocytes % 0 % LAB HEMATOLOGY METHOD 06/29/2025 12:49 AM EDT [facility] Neutrophils Absolute 1.04(L) 1.60 - 6.10 10*3/uL LAB HEMATOLOGY METHOD 06/29/2025 12:49 AM EDT [facility] Lymphocytes Absolute 0.62(L) 1.20 - 3.90 10*3/uL LAB HEMATOLOGY METHOD 06/29/2025 12:49 AM EDT [facility] Monocytes Absolute 0.49 0.30 - 0.90 10*3/uL LAB HEMATOLOGY METHOD 06/29/2025 12:49 AM EDT [facility] Eosinophils Absolute 0.06 0.00 - 0.50 10*3/uL LAB HEMATOLOGY METHOD 06/29/2025 12:49 AM EDT [facility] Basophils Absolute 0.01 0.00 - 0.10 10*3/uL LAB HEMATOLOGY METHOD 06/29/2025 12:49 AM EDT [facility] Immature Granulocytes Absolute 0.00 0.00 - 0.06 10*3/uL LAB HEMATOLOGY METHOD 06/29/2025 12:49 AM EDT [facility] Blood Venous blood specimen / Unknown Venipuncture / Unknown 06/29/2025 12:18 AM EDT 06/29/2025 12:23 AM EDT Narrative [facility] - 06/29/2025 12:49 AM EDT Therapeutic decision making should be based on absolute values, rather than percentages. us Chilo Morales MD LAB BLOOD ORDERABLES Final Result Performing Organization Address [facility] [address]/[facility] Co de Phone Number [facility] [address] [place] [address] * (ABNORMAL) Ammonia, Plasma (06/29/2025 12:18 AM EDT) Ammonia 125(H) 11 - 51 umol/L 06/29/2025 12:39 AM EDT [facility] Blood Venous blood specimen / Unknown Venipuncture / Unknown 06/29/2025 12:18 AM EDT 06/29/2025 12:21 AM EDT us Fabiana Cunningham MD LAB BLOOD ORDERABLES Final Resu lt Performing Organization Address [facility] [address]/[facility] Co de Phone Number [facility] [address] [place] [address] * (ABNORMAL) POCT glucose meter (06/28/2025 10:35 PM EDT) POCT Glucose 161(H) 74 - 99 mg/dL 06/28/2025 10:41 PM EDT [facility] Comment:Accuracy of [...] to the main labortory for testing. Comment 06/28/2025 10:41 PM EDT [facility] Scrap Worker ID [email or web address] 06/28/2025 10:41 PM EDT [facility] Device ID [id number] 06/28/2025 10:41 PM EDT [facility] Specimen Type POC Capillary 06/28/2025 10:41 PM EDT [facility] Blood Capillary blood specimen / Unknown 06/28/2025 10:35 PM EDT 06/28/2025 10:41 PM EDT us Fabiana Cunningham MD LAB POINT OF CARE TE ST DOCKED DEVICE UNSOLICITED RESULTS Final Result Performing Organization Address City/[facility] [address]/ZIP Co de Phone Number [facility] [address] [place] [address] * (ABNORMAL) POCT glucose meter (06/28/2025 4:41 PM EDT) [facility] POCT Glucose 153(H) 74 - 99 mg/dL 06/28/2025 4:43 PM EDT [facility] Comment:Accuracy of [...] to the main labortory for testing. Comment 06/28/2025 4:43 PM EDT [facility] Scrap Worker ID Ashleigh Romero 4:43 PM EDT [facility] Device ID [id number] 06/28/2025 4:43 PM EDT [facility] Specimen Type POC Capillary 06/28/2025 4:43 PM EDT [facility] Blood Capillary blood specimen / Unknown 06/28/2025 4:41 PM EDT 06/28/2025 4:43 PM EDT us Chilo Morales MD LAB POINT OF CARE T EST DOCKED DEVICE UNSOLICITED RESULTS Final Result Performing Organization Address City/[facility] [address]/ZIP Co de Phone Number [facility] [address] [place] [address] * (ABNORMAL) POCT glucose meter (06/28/2025 12:08 PM EDT) [facility] POCT Glucose 202(H) 74 - 99 mg/dL 06/28/2025 12:10 PM EDT [facility] Comment:Accuracy of a glucos e result obtained from a capillary whole blood specimen relies upon adequate, non-compromised capillary blood flow. If the capillary glucose result is not consistent with the patient's clinical signs and symptoms, glucose testing should be repeated with either an arterial or venous sample on the glucometer or sent to the main labortory for testing. Comment 06/28/2025 12:10 PM EDT [facility] Scrap Worker ID Ashleigh Romero 12:10 PM EDT [facility] Device ID [id number] 06/28/2025 12:10 PM EDT [facility] Specimen Type POC Capillary 06/28/2025 12:10 PM EDT [facility] Blood Capillary blood specimen / Unknown 06/28/2025 12:08 PM EDT 06/28/2025 12:10 PM EDT Chilo Morales MD LAB POINT OF CARE T EST DOCKED DEVICE UNSOLICITED RESULTS Final Result [facility] [address] [place] [address] * (ABNORMAL) POCT glucose meter (06/28/2025 8:19 AM EDT) [facility] POCT Glucose 151(H) 74 - 99 mg/dL 06/28/2025 8:21 AM EDT [facility] Comment:Accuracy of a glucos e result obtained from a capillary whole blood specimen relies upon adequate, non-compromised capillary blood flow. If the capillary glucose result is not consistent with the patient's clinical signs and symptoms, glucose testing should be repeated with either an arterial or venous sample on the glucometer or sent to the main labortory for testing. Comment 06/28/2025 8:21 AM EDT [facility] Scrap Worker ID Ashleigh Romero 8:21 AM EDT [facility] Device ID [id number] 06/28/2025 8:21 AM EDT [facility] Specimen Type POC Capillary 06/28/2025 8:21 AM EDT [facility] Blood Capillary blood specimen / Unknown 06/28/2025 8:19 AM EDT 06/28/2025 8:21 AM EDT us Chilo Morales MD LAB POINT OF CARE T EST DOCKED DEVICE UNSOLICITED RESULTS Final Result Performing Organization Address [facility] Co de Phone Number [facility] [address] [place] [address] * (ABNORMAL) Prealbumin (06/28/2025 3:50 AM EDT) Prealbumin, Plasma 5.0(L) 20.0 - 41.0 mg/dL 06/28/2025 1:42 PM EDT [facility] Blood Venous blood specimen / Unknown Venipuncture / Unknown 06/28/2025 3:50 AM EDT 06/28/2025 4:27 AM EDT us Chilo Morales MD LAB BLOOD ORDERABLES Final Result Performing Organization Address [facility] [address]/[facility] Phone Number [facility] [address] [place] [address] * (ABNORMAL) Comprehensive metabolic panel (06/28/2025 3:50 AM EDT) Glucose, Plasma 149(H) 74 - 99 mg/dL 06/28/2025 4:57 AM EDT [facility] BUN, Plasma 28(H) 8 - 23 mg/dL 06/28/2025 4:57 AM EDT [facility] Creatinine, Plasma 1.66(H) 0.60 - 1.10 mg/dL 06/28/2025 4:57 AM EDT [facility] BUN/Creatinine Ratio 17 06/28/2025 4:57 AM EDT [facility] Sodium, Plasma 136 136 - 145 mmol/L 06/28/2025 4:57 AM EDT [facility] Potassium, Plasma 3.5(L) 3.6 - 4.9 mmol/L 06/28/2025 4:57 AM EDT [facility] Chloride, Plasma 107 97 - 107 mmol/L 06/28/2025 4:57 AM EDT [facility] CO2, Plasma 18(L) 22 - 29 mmol/L 06/28/2025 4:57 AM EDT [facility] Anion Gap 11 6 - 16 mmol/L 06/28/2025 4:57 AM EDT [facility] Total Calcium, Plasma 8.3(L) 8.9 - 10.2 mg/dL 06/28/2025 4:57 AM EDT [facility] Total Protein 5.8(L) 6.3 - 7.9 g/dL 06/28/2025 4:57 AM EDT [facility] Albumin, Plasma 3.1(L) 3.5 - 5.2 g/dL 06/28/2025 4:57 AM EDT [facility] AST, Plasma 52(H) 10 - 35 U/L 06/28/2025 4:57 AM EDT [facility] ALT, Plasma 23 10 - 35 U/L 06/28/2025 4:57 AM EDT [facility] Alkaline Phosphatase, Plasma 194(H) 46 - 142 U/L 06/28/2025 4:57 AM EDT [facility] Total Bilirubin, Plasma 2.3(H) 0.2 - 1.1 mg/dL 06/28/2025 4:57 AM EDT [facility] eGFRcr 34.7 mL/min/1.7 3m*2 06/28/2025 4:57 AM EDT [facility] Comment:Reported eGFRcr in m L/min/1.73m2 is based the CKD-EPI 2020 equation that does not use a race coefficient. Blood Venous blood specimen / Unknown Venipuncture / Unknown 06/28/2025 3:50 AM EDT 06/28/2025 4:27 AM EDT us Chilo Morales MD LAB BLOOD ORDERABLES Final Result [facility] [address] [place] [address] * Phosphorus, Plasma (06/28/2025 3:50 AM EDT) Phosphorus, Plasma 3.5 2.5 - 4.5 mg/dL 06/28/2025 4:57 AM EDT [facility] Blood Venous blood specimen / Unknown Venipuncture / Unknown 06/28/2025 3:50 AM EDT 06/28/2025 4:27 AM EDT Chilo Morales MD LAB BLOOD ORDERABLES Final Result Performing Organization Address City/[facility] [address]/ZIP Co de Phone Number [facility] [address] [place] [address] * (ABNORMAL) Magnesium, Plasma (06/28/2025 3:50 AM EDT) Pathologist [facility] Magnesium, Plasma 1.8(L) 1.9 - 2.4 mg/dL 06/28/2025 4:57 AM EDT [facility] Blood Venous blood specimen / Unknown Venipuncture / Unknown 06/28/2025 3:50 AM EDT 06/28/2025 4:27 AM EDT Chilo Morales MD LAB BLOOD ORDERABLES Final Result Performing Organization Address City/[facility] [address]/[facility] Co de Phone Number [facility] [address] [place] [phone] * (ABNORMAL) CBC and Differential (06/28/2025 3:50 AM EDT) WBC Count 1.69(L) 3.70 - 10.30 10*3/uL LAB HEMATOLOGY METHOD 06/28/2025 5:04 AM EDT [facility] [facility] RBC Count 2.72(L) 3.90 - 5.20 10*6/uL LAB HEMATOLOGY METHOD 06/28/2025 5:04 AM EDT [facility] HGB 8.3(L) 11.2 - 15.7 g/dL LAB HEMATOLOGY METHOD 06/28/2025 5:04 AM EDT [facility] HCT 24.6(L) 34.0 - 45.0 % LAB HEMATOLOGY METHOD 06/28/2025 5:04 AM EDT [facility] Platelet Count 40(L) 155 - 369 10*3/uL LAB HEMATOLOGY METHOD 06/28/2025 5:04 AM EDT [facility] MCV 90 79 - 98 fL LAB HEMATOLOGY METHOD 06/28/2025 5:04 AM EDT [facility] MCH 30.5 26.0 - 32.0 pg LAB HEMATOLOGY METHOD 06/28/2025 5:04 AM EDT [facility] MCHC 33.7 30.7 - 35.5 g/dL LAB HEMATOLOGY METHOD 06/28/2025 5:04 AM EDT [facility] RDW 15.5(H) 11.5 - 14.5 % LAB HEMATOLOGY METHOD 06/28/2025 5:04 AM EDT [facility] MPV 11.3 8.8 - 12.5 fL LAB HEMATOLOGY METHOD 06/28/2025 5:04 AM EDT [facility] nRBC 0.0 <=0.0 per 100 WBCs LAB HEMATOLOGY METHOD 06/28/2025 5:04 AM EDT [facility] Differential Type Automated LAB HEMATOLOGY METHOD 06/28/2025 5:04 AM EDT [facility] Neutrophils % 40 % LAB HEMATOLOGY METHOD 06/28/2025 5:04 AM EDT [facility] Lymphocytes % 31 % LAB HEMATOLOGY METHOD 06/28/2025 5:04 AM EDT [facility] Monocytes % 23 % LAB HEMATOLOGY METHOD 06/28/2025 5:04 AM EDT [facility] Eosinophils % 4 % LAB HEMATOLOGY METHOD 06/28/2025 5:04 AM EDT [facility] Basophils % 1 % LAB HEMATOLOGY METHOD 06/28/2025 5:04 AM EDT [facility] Immature Granulocytes % 1 % LAB HEMATOLOGY METHOD 06/28/2025 5:04 AM EDT [facility] Neutrophils Absolute 0.69(LL) 1.60 - 6.10 10*3/uL LAB HEMATOLOGY METHOD 06/28/2025 5:04 AM EDT [facility] Lymphocytes Absolute 0.53(L) 1.20 - 3.90 10*3/uL LAB HEMATOLOGY METHOD 06/28/2025 5:04 AM EDT [facility] Monocytes Absolute 0.39 0.30 - 0.90 10*3/uL LAB HEMATOLOGY METHOD 06/28/2025 5:04 AM EDT [facility] Eosinophils Absolute 0.06 0.00 - 0.50 10*3/uL LAB HEMATOLOGY METHOD 06/28/2025 5:04 AM EDT [facility] Basophils Absolute 0.01 0.00 - 0.10 10*3/uL LAB HEMATOLOGY METHOD 06/28/2025 5:04 AM EDT [facility] Immature Granulocytes Absolute 0.01 0.00 - 0.06 10*3/uL LAB HEMATOLOGY METHOD 06/28/2025 5:04 AM EDT [facility] Blood Venous blood specimen / Unknown Venipuncture / Unknown 06/28/2025 3:50 AM EDT 06/28/2025 4:26 AM EDT Narrative [facility] - 06/28/2025 5:04 AM EDT Therapeutic decision making should be based on absolute values, rather than percentages. us Chilo Morales MD LAB BLOOD ORDERABLES Final Result Performing Organization Address City/[facility] [address]/ZIP Co de Phone Number [facility] [address] [place] [address] * (ABNORMAL) POCT glucose meter (06/27/2025 8:04 PM EDT) POCT Glucose 232(H) 74 - 99 mg/dL 06/27/2025 8:05 PM EDT [facility] Comment:Accuracy of a glucos e result obtained from a capillary whole blood specimen relies upon adequate, non-compromised capillary blood flow. If the capillary glucose result is not consistent with the patient's clinical signs and symptoms, glucose testing should be repeated with either an arterial or venous sample on the glucometer or sent to the main labortory for testing. Comment 06/27/2025 8:05 PM EDT [facility] Scrap Worker ID Nav GillShahidTracie Saucedo 06/27/2025 8:05 PM EDT [facility] Device ID [id number] 06/27/2025 8:05 PM EDT [facility] Specimen Type POC Capillary 06/27/2025 8:05 PM EDT [facility] Blood Capillary blood specimen / Unknown 06/27/2025 8:04 PM EDT 06/27/2025 8:05 PM EDT us Chilo Morales MD LAB POINT OF CARE T EST DOCKED DEVICE UNSOLICITED RESULTS Final Result [facility] [address] [place] [address] * (ABNORMAL) POCT glucose meter (06/27/2025 4:41 PM EDT) POCT Glucose 183(H) 74 - 99 mg/dL 06/27/2025 4:42 PM EDT [facility] Comment:Accuracy of [...] to the main labortory for testing. Comment 06/27/2025 4:42 PM EDT [facility] Scrap Worker ID Ashleigh Romero 4:42 PM EDT [facility] Device ID [id number] 06/27/2025 4:42 PM EDT [facility] Specimen Type POC Capillary 06/27/2025 4:42 PM EDT [facility] Blood Capillary blood specimen / Unknown 06/27/2025 4:41 PM EDT 06/27/2025 4:42 PM EDT Chilo Morales MD LAB POINT OF CARE T EST DOCKED DEVICE UNSOLICITED RESULTS Final Result Performing Organization Address City/[facility] [address]/[facility] Co de Phone Number [facility] [address] [place] [address] * (ABNORMAL) APTT (06/27/2025 2:37 PM EDT) Pathologist [facility] aPTT 42(H) 25 - 35 sec 06/27/2025 3:10 PM EDT [facility] Blood Venous blood specimen / Unknown Venipuncture / Unknown 06/27/2025 2:37 PM EDT 06/27/2025 2:44 PM EDT us Chilo Morales MD LAB BLOOD ORDERABLES Final Result Performing Organization Address City/[facility] [address]/ZIP Co de Phone Number [facility] [address] [place] [address] * (ABNORMAL) CBC and differential (06/27/2025 2:37 PM EDT) WBC Count 1.51(L) 3.70 - 10.30 10*3/uL LAB HEMATOLOGY METHOD 06/27/2025 3:06 PM EDT [facility] RBC Count 2.99(L) 3.90 - 5.20 10*6/uL LAB HEMATOLOGY METHOD 06/27/2025 3:06 PM EDT [facility] HGB 9.4(L) 11.2 - 15.7 g/dL LAB HEMATOLOGY METHOD 06/27/2025 3:06 PM EDT [facility] HCT 27.7(L) 34.0 - 45.0 % LAB HEMATOLOGY METHOD 06/27/2025 3:06 PM EDT [facility] Platelet Count 35(L) 155 - 369 10*3/uL LAB HEMATOLOGY METHOD 06/27/2025 3:06 PM EDT [facility] MCV 93 79 - 98 fL LAB HEMATOLOGY METHOD 06/27/2025 3:06 PM EDT [facility] MCH 31.4 26.0 - 32.0 pg LAB HEMATOLOGY METHOD 06/27/2025 3:06 PM EDT [facility] MCHC 33.9 30.7 - 35.5 g/dL LAB HEMATOLOGY METHOD 06/27/2025 3:06 PM EDT [facility] RDW 15.8(H) 11.5 - 14.5 % LAB HEMATOLOGY METHOD 06/27/2025 3:06 PM EDT [facility] MPV 10.8 8.8 - 12.5 fL LAB HEMATOLOGY METHOD 06/27/2025 3:06 PM EDT [facility] nRBC 0.0 <=0.0 per 100 WBCs LAB HEMATOLOGY METHOD 06/27/2025 3:06 PM EDT [facility] Differential Type Automated LAB HEMATOLOGY METHOD 06/27/2025 3:06 PM EDT [facility] Neutrophils % 37 % LAB HEMATOLOGY METHOD 06/27/2025 3:06 PM EDT [facility] Lymphocytes % 40 % LAB HEMATOLOGY METHOD 06/27/2025 3:06 PM EDT [facility] Monocytes % 18 % LAB HEMATOLOGY METHOD 06/27/2025 3:06 PM EDT [facility] Eosinophils % 4 % LAB HEMATOLOGY METHOD 06/27/2025 3:06 PM EDT [facility] Basophils % 1 % LAB HEMATOLOGY METHOD 06/27/2025 3:06 PM EDT [facility] Immature Granulocytes % 0 % LAB HEMATOLOGY METHOD 06/27/2025 3:06 PM EDT [facility] Neutrophils Absolute 0.56(LL) 1.60 - 6.10 10*3/uL LAB HEMATOLOGY METHOD 06/27/2025 3:06 PM EDT [facility] Lymphocytes Absolute 0.61(L) 1.20 - 3.90 10*3/uL LAB HEMATOLOGY METHOD 06/27/2025 3:06 PM EDT [facility] Monocytes Absolute 0.27(L) 0.30 - 0.90 10*3/uL LAB HEMATOLOGY METHOD 06/27/2025 3:06 PM EDT [facility] Eosinophils Absolute 0.06 0.00 - 0.50 10*3/uL LAB HEMATOLOGY METHOD 06/27/2025 3:06 PM EDT [facility] Basophils Absolute 0.01 0.00 - 0.10 10*3/uL LAB HEMATOLOGY METHOD 06/27/2025 3:06 PM EDT [facility] Immature Granulocytes Absolute 0.00 0.00 - 0.06 10*3/uL LAB HEMATOLOGY METHOD 06/27/2025 3:06 PM EDT [facility] Blood Venous blood specimen / Unknown Venipuncture / Unknown 06/27/2025 2:37 PM EDT 06/27/2025 2:44 PM EDT Narrative [facility] - 06/27/2025 3:06 PM EDT Therapeutic decision making should be based on absolute values, rather than percentages. Chilo Morales MD LAB BLOOD ORDERABLES Final Result Performing Organization Address City/[facility] [address]/ZIP Co de Phone Number [facility] [address] [place] [address] * (ABNORMAL) Magnesium (06/27/2025 2:37 PM EDT) Magnesium, Plasma 1.5(L) 1.9 - 2.4 mg/dL 06/27/2025 3:10 PM EDT [facility] Blood Venous blood specimen / Unknown Venipuncture / Unknown 06/27/2025 2:37 PM EDT 06/27/2025 2:44 PM EDT Chilo Morales MD LAB BLOOD ORDERABLES Final Result [facility] [address] [place] [address] * (ABNORMAL) Basic metabolic panel (06/27/2025 2:37 PM EDT) Glucose, Plasma 90 74 - 99 mg/dL 06/27/2025 3:10 PM EDT [facility] BUN, Plasma 29(H) 8 - 23 mg/dL 06/27/2025 3:10 PM EDT [facility] Creatinine, Plasma 1.83(H) 0.60 - 1.10 mg/dL 06/27/2025 3:10 PM EDT [facility] BUN/Creatinine Ratio 16 06/27/2025 3:10 PM EDT [facility] Sodium, Plasma 139 136 - 145 mmol/L 06/27/2025 3:10 PM EDT [facility] Potassium, Plasma 3.7 3.6 - 4.9 mmol/L 06/27/2025 3:10 PM EDT [facility] Chloride, Plasma 108(H) 97 - 107 mmol/L 06/27/2025 3:10 PM EDT [facility] CO2, Plasma 19(L) 22 - 29 mmol/L 06/27/2025 3:10 PM EDT [facility] Anion Gap 12 6 - 16 mmol/L 06/27/2025 3:10 PM EDT [facility] Total Calcium, Plasma 8.6(L) 8.9 - 10.2 mg/dL 06/27/2025 3:10 PM EDT [facility] eGFRcr 30.9 mL/min/1.7 3m*2 06/27/2025 3:10 PM EDT [facility] Comment:Reported eGFRcr in m L/min/1.73m2 is based the CKD-EPI 2020 equation that does not use a race coefficient. Blood Venous blood specimen / Unknown Venipuncture / Unknown 06/27/2025 2:37 PM EDT 06/27/2025 2:44 PM EDT us Chilo Morales MD LAB BLOOD ORDERABLES Final Result [facility] [address] [place] [address] * XR Chest 1 View (06/27/2025 10:49 AM EDT) Anatomical Region Laterality Modality Chest Digital Radiogra phy Impressions 06/27/2025 11:46 AM EDT No pneumothorax. Improved right-sided pleural effusion. CRITICAL RESULT: No. COMMUNICATION: Per this written report. By electronically signing this report, I, the attending physician, attest that I have personally reviewed the images/data for the above examination(s) and agree with the final edited report. Drafted by Tamica Alejo MD on 06/27/2025 11:21 AM Final report signed by Golden Jin MD on 06/27/2025 11:46 AM Narrative 06/27/2025 11:46 AM EDT CLINICAL INDICATION: s/p thora, right TECHNIQUE: XR CHEST 1 VIEW COMPARISON: Chest radiograph June 25, 2025 FINDINGS: Cardiac silhouette and mediastinal contours are stable. No consolidation. Improved right-sided pleural effusion. No pneumothorax. Procedure Note Golden Jin MD - 06/27/2025 CLINICAL INDICATION: s/p thora, right TECHNIQUE: XR CHEST 1 VIEW COMPARISON: Chest radiograph June 25, 2025 FINDINGS: Cardiac silhouette and mediastinal contours are stable. No consolidation.Improved right-sided pleural effusion. No pneumothorax. IMPRESSION: No pneumothorax. Improved right-sided pleural effusion. CRITICAL RESULT: No. COMMUNICATION: Per this written report. By electronically signing this report, I, the attending physician, attestthat I have personally reviewed the images/data for the aboveexamination(s) and agree with the final edited report. Drafted by Tamica Alejo MD on 06/27/2025 11:21 AM Final report signed by Golden Jin MD on 06/27/2025 11:46 AM us Marianna N Cheeks BRAND SPECIALIST IMG XR PROCEDURES Final Resu lt * (ABNORMAL) POCT glucose meter (06/27/2025 10:27 AM EDT) POCT Glucose 105(H) 74 - 99 mg/dL 06/27/2025 10:28 AM EDT [facility] Comment:Accuracy of a glucos e result obtained from a capillary whole blood specimen relies upon adequate, non-compromised capillary blood flow. If the capillary glucose result is not consistent with the patient's clinical signs and symptoms, glucose testing should be repeated with either an arterial or venous sample on the glucometer or sent to the main labortory for testing. Comment 06/27/2025 10:28 AM EDT [facility] Scrap Worker ID Alvarez Mcclure 10:28 AM EDT [facility] Device ID [id number] 06/27/2025 10:28 AM EDT [facility] Specimen Type POC Capillary 06/27/2025 10:28 AM EDT [facility] Blood Capillary blood specimen / Unknown 06/27/2025 10:27 AM EDT 06/27/2025 10:28 AM EDT us Chilo Morales MD LAB POINT OF CARE T EST DOCKED DEVICE UNSOLICITED RESULTS Final Result Performing Organization Address City/State/[facility] Co de Phone Number [facility] [address] [place] [address] * US Guided Thoracentesis (06/27/2025 10:03 AM EDT) Anatomical Region Laterality Modality Chest Ultrasound Impressions 06/27/2025 2:58 PM EDT Technically successful ultrasound guided thoracentesis. A total of 1.4 liters of clear anthony fluid was removed. CRITICAL RESULT: No. COMMUNICATION: Per this written report. Preliminary report signed by SOLANGE Omalley on 06/27/2025 12:06 PM By electronically signing this report, I, the attending physician, attest that I was not present for the procedure(s) but agree with the final edited report. Drafted by SOLANGE Omalley on 06/27/2025 12:04 PM Final report signed by Sam Turcios MD on 06/27/2025 2:58 PM Narrative 06/27/2025 2:58 PM EDT CLINICAL INDICATION: Monika Ordaz is a 64 y.o. 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 She is presenting to on 06/25/25 from Nephrology clinic with concern for CARLOTTA and inability to care for self. Of note, we are familiar with Ms. Ordaz as we perform outpatient paracentesis/thoracentesis on her nearly weekly. Last one being on 06/20/25. Vitals POA: Temp 98.2 , pulse 65, RR 16, BP 121/61, SpO2 98% on room air. Lab work pertinent for CBC with leukopenia WBC 2.33, hemoglobin 9.3 around baseline (normocytic), platelet count 39 (lowest in recent history), PT/INR elevated, CMP with elevated BG 242, creatinine 2.5 on baseline 1.1-1.3, liver enzymes slightly elevated, T bili 2.1, Mag 1.6. CXR with moderate right pleural effusion. TECHNIQUE: Traffic Analyst: Marianna Gordon APRN Secondary Scrap Worker: None. Nurse: Mack Technologist: Dayne Phillips Dose: NA Medications: Continuous physiologic monitoring provided by a qualified healthcare professional. Administered: 1% Lidocaine SQ. Antibiotics: NA Time out: 913 Procedure: After discussion of risks and benefits, [...] storage in PACS. A total of 1.4 liters of clear anthony fluid was removed. The needle was removed and occlusive dressing applied. The patient tolerated the procedure well. The patient left the IR suite in stable condition. COMPARISON: None. FINDINGS: Large right pleural fluid. COMPLICATION: No. Procedure Note Sam Turcios MD - 06/27/2025 CLINICAL INDICATION: Monika Ordaz is a 64 y.o. 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 She is presenting to on 06/25/25 from Nephrologyclinic with concern for CARLOTTA and inability to care for self. Of note, we are familiar with Ms. Ordaz as we perform outpatientparacentesis/thoracentesis on her nearly weekly. Last one being on06/20/25. Vitals POA: Temp 98.2 , pulse 65, RR 16, BP 121/61, SpO2 98% on room air.Lab work pertinent for CBC with leukopenia WBC 2.33, hemoglobin 9.3 aroundbaseline (normocytic), platelet count 39 (lowest in recent history),PT/INR elevated, CMP with elevated BG 242, creatinine 2.5 on baseline1.1-1.3, liver enzymes slightly elevated, T bili 2.1, Mag 1.6. CXR with moderate right pleural effusion. TECHNIQUE: Traffic Analyst: Marianna Gordon APRN Secondary Scrap Worker: Aparna. Nurse: Mack Technologist: Dayne Phillips Dose: NA Medications: Continuous physiologic monitoring provided by a qualifiedhealthcare professional. Administered: 1% Lidocaine SQ. Antibiotics: NA Time out: 913 Procedure: After discussion of risks and benefits, [...] storage in PACS. A total of 1.4 liters of clear anthony fluidwas removed. The needle was removed and occlusive dressing applied. The patient tolerated the procedure well. The patient left the IR suitein stable condition. COMPARISON: None. FINDINGS: Large right pleural fluid. COMPLICATION: No. IMPRESSION: Technically successful ultrasound guided thoracentesis. A total of 1.4 liters of clear anthony fluid was removed. CRITICAL RESULT: No. COMMUNICATION: Per this written report. Preliminary report signed by SOLANGE Omalley on 06/27/2025 12:06 PM By electronically signing this report, I, the attending physician, attestthat I was not present for the procedure(s) but agree with the finaledited report. Drafted by SOLANGE Omalley on 06/27/2025 12:04 PM Final report signed by Sam Turcios MD on 06/27/2025 2:58 PM us Shaniqua Mccurdy BRAND SPECIALIST IMG US PROCEDURES Final Resu lt * US Guided Abdominal Paracentesis (06/27/2025 10:03 AM EDT) Anatomical Region Laterality Modality Abdomen Ultrasound Impressions 06/27/2025 2:59 PM EDT Technically successful US-guided paracentesis. A total of 3 liters of clear anthony fluid was removed A sample of the fluid was sent for laboratory analysis. Administered Albumin 37.5 g IV once post procedure CRITICAL RESULT: No. COMMUNICATION: Per this written report. Preliminary report signed by SOLANGE Omalley on 06/27/2025 12:04 PM By electronically signing this report, I, the attending physician, attest that I was not present for the procedure(s) but agree with the final edited report. Drafted by SOLANGE Omalley on 06/27/2025 12:03 PM Final report signed by Sam Turcios MD on 06/27/2025 2:59 PM Narrative 06/27/2025 2:59 PM EDT CLINICAL INDICATION: Monika Ordaz is a 64 y.o. 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 She is presenting to on 06/25/25 from Nephrology clinic with concern for CARLOTTA and inability to care for self. Of note, we are familiar with Ms. Ordaz as we perform outpatient paracentesis/thoracentesis on her nearly weekly. Last one being on 06/20/25. Vitals POA: Temp 98.2 , pulse 65, RR 16, BP 121/61, SpO2 98% on room air. Lab work pertinent for CBC with leukopenia WBC 2.33, hemoglobin 9.3 around baseline (normocytic), platelet count 39 (lowest in recent history), PT/INR elevated, CMP with elevated BG 242, creatinine 2.5 on baseline 1.1-1.3, liver enzymes slightly elevated, T bili 2.1, Mag 1.6. CXR with moderate right pleural effusion. TECHNIQUE: Traffic Analyst: Marianna Gordon APRN Secondary Scrap Worker: None. Nurse: Mack Technologist: Dayne Phillips Dose: NA Medications: Continuous physiologic monitoring provided by a qualified healthcare professional. Administered: 1% Lidocaine SQ. Antibiotics: NA Time out: 913 Procedure: After discussion of risks and benefits, [...] real time US guidance, a 6 Fr skater catheter was advanced into the ascites. Ultrasound images were sent to permanent storage in PACS. A total of 3 liters of clear anthony fluid was removed. The centesis catheter was removed and occlusive dressing applied. The patient tolerated the procedure well. The patient left the IR suite in stable condition. COMPARISON: None. FINDINGS: Moderate volume ascites. COMPLICATION: No. Procedure Note Sam Turcios MD - 06/27/2025 CLINICAL INDICATION: Monika Ordaz is a 64 y.o. 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 She is presenting to on 06/25/25 from [facility]phrolog[facility]inic with concern for CARLOTTA and inability to care for self. Of note, we are familiar with Ms. Ordaz as we perform outpatientparacentesis/thoracentesis on her nearly weekly. Last one being on06/20/25. Vitals POA: Temp 98.2 , pulse 65, RR 16, BP 121/61, SpO2 98% on room air.Lab work pertinent for CBC with leukopenia WBC 2.33, hemoglobin 9.3 aroundbaseline (normocytic), platelet count 39 (lowest in recent history),PT/INR elevated, CMP with elevated BG 242, creatinine 2.5 on baseline1.1-1.3, liver enzymes slightly elevated, T bili 2.1, Mag 1.6. CXR with moderate right pleural effusion. TECHNIQUE: Traffic Analyst: Marianna Gordon APRN Secondary Scrap Worker: None. Nurse: Mack Technologist: Dayne Phillips Dose: NA Medications: Continuous physiologic monitoring provided by a qualifiedhealthcare professional. Administered: 1% Lidocaine SQ. Antibiotics: NA Time out: 913 Procedure: After discussion of risks and benefits, [...] real time US guidance, a 6 Fr skater catheter wasadvanced into the ascites. Ultrasound images were sent to permanentstorage in PACS. A total of 3 liters of clear anthony fluid was removed.The centesis catheter was removed and occlusive dressing applied. The patient tolerated the procedure well. The patient left the IR suitein stable condition. COMPARISON: None. FINDINGS: Moderate volume ascites. COMPLICATION: No. IMPRESSION: Technically successful US-guided paracentesis. A total of 3 liters of clear anthony fluid was removed A sample of the fluid was sent for laboratory analysis. Administered Albumin 37.5 g IV once post procedure CRITICAL RESULT: No. COMMUNICATION: Per this written report. Preliminary report signed by SOLANGE Omalley on 06/27/2025 12:04 PM By electronically signing this report, I, the attending physician, attestthat I was not present for the procedure(s) but agree with the finaledited report. Drafted by SOLANGE Omalley on 06/27/2025 12:03 PM Final report signed by Sam Turcios MD on 06/27/2025 2:59 PM us Shaniqua Mccurdy BRAND SPECIALIST IMG US PROCEDURES Final Resu lt * Body fluid, cytospin, pathologist interpretation (06/27/2025 9:16 AM EDT) Specimen Type Body Fluid LAB HEMATOLOGY METHOD 06/28/2025 5:28 PM EDT [facility] Specimen Source, Body Fluid Peritoneal Fluid LAB HEMATOLOGY METHOD 06/28/2025 5:28 PM EDT [facility] Clinical Diagnosis, Body Fluid Ascites LAB HEMATOLOGY METHOD 06/28/2025 5:28 PM EDT [facility] Interpretation , Body Fluid No evidence of malignancy Chronic inflammatory cells Lymphocytosis Moderate blood A resident was involved in the service. I attest I examined the relevant preparations for the specimens and confirmed the diagnosis or interpretation. 06/28/2025 5:28 PM EDT [facility] Pathologist Signature, Body Fluid 06/28/2025 5:28 PM EDT [facility] Comment:Reviewed by: Kadie dobbs MD LAB CP ASR DISCLAIMER Yes 06/28/2025 5:28 PM EDT [facility] Body Fluid Peritoneal fluid / Unknown Non-blood Collection / Unknown 06/27/2025 9:16 AM EDT 06/27/2025 11:21 AM EDT us Chilo Morales MD LAB BODY FLUIDS AND STOOLS ORDERABLES Final Result [facility] [address] [place] [address] * LDH - Ascites (06/27/2025 9:16 AM EDT) LDH, Fluid 37 U/L 06/27/2025 2:46 PM EDT [facility] Peritoneal Fluid Peritoneal cavity structure / Unknown Non-blood Collection / Unknown 06/27/2025 9:16 AM EDT 06/27/2025 11:21 AM EDT Narrative [facility] - 06/27/2025 2:46 PM EDT No established reference interval. Results should be interpreted in comparison to the concentration in blood and in conjunction with the clinical context. Peritoneal fluid LDH may be useful in differentiating secondary bacterial peritonitis (GI perforation) from spontaneous bacterial peritonitis when at least 2 of 3 of the following is met: 1) Total protein > 1g/dL; 2) LDH >upper limit of normal for plasma; 3) Glucose < 50 mg/dL. Chilo Morales MD LAB BODY FLUIDS AND STOOLS ORDERABLES Final Result Performing Organization Address [facility] de Phone Number [facility] [address] [place] [address] * Albumin - Ascites (06/27/2025 9:16 AM EDT) Albumin, Peritoneal Fluid 0.5 g/dL 06/27/2025 2:46 PM EDT [facility] Peritoneal Fluid Peritoneal cavity structure / Unknown Non-blood Collection / Unknown 06/27/2025 9:16 AM EDT 06/27/2025 11:21 AM EDT Narrative [facility] - 06/27/2025 2:46 PM EDT REPORTING RESULTS Reference Values: No established reference interval. Results should be interpreted in comparison to the concentration in blood and in conjunction with the clinical context. This test was developed and its performance characteristics determined by [facility]. The U.S. Food and Drug Administration has not approved or cleared this test; however, FDA clearance or approval is not currently required for clinical use. The results are not intended to be used as the sole means for clinical diagnosis or patient management decisions. Chilo Morales MD LAB BODY FLUIDS AND STOOLS ORDERABLES Final Result Performing Organization Address [facility] de Phone Number [facility] [address] [place] [address] * Protein - Ascites (06/27/2025 9:16 AM EDT) Total Protein, Fluid 0.7 g/dL 06/27/2025 2:46 PM EDT [facility] Peritoneal Fluid Peritoneal cavity structure / Unknown Non-blood Collection / Unknown 06/27/2025 9:16 AM EDT 06/27/2025 11:21 AM EDT Narrative [facility] - 06/27/2025 2:46 PM EDT This test was developed and its performance characteristics determined by [facility]. The U.S. Food and Drug Administration has not approved or cleared this test. However, FDA clearance or approval is not currently required for clinical use. The results are not intended to be used as the sole means for clinical diagnosis or patient management decisions. Chilo Morales MD LAB BODY FLUIDS AND STOOLS ORDERABLES Final Result Performing Organization Address City/[facility] [address]/ZIP Co de Phone Number [facility] [address] [place] [address] * Glucose - Ascites (06/27/2025 9:16 AM EDT) Glucose, Fluid 130 mg/dL 06/27/2025 2:46 PM EDT [facility] Peritoneal Fluid Peritoneal cavity structure / Unknown Non-blood Collection / Unknown 06/27/2025 9:16 AM EDT 06/27/2025 11:21 AM EDT Narrative [facility] - 06/27/2025 2:46 PM EDT Peritoneal/Ascites No established reference interval. [...] for plasma; 3) Glucose < 50 mg/dL. Chilo Morales MD LAB BODY FLUIDS AND STOOLS ORDERABLES Final Result [facility] [address] [place] [address] * Body Fluid Culture and Gram Stain (06/27/2025 9:16 AM EDT) Culture No growth at day 4 2024 11:06 AM EDT [facility] Gram Stain Result No polymorphonuclear leukocytes seen 06/30/2025 11:06 AM EDT [facility] Gram Stain Result No organisms seen 06/30/2025 11:06 AM EDT [facility] Peritoneal Fluid Peritoneal cavity structure / Unknown Non-blood Collection / Unknown 06/27/2025 9:16 AM EDT 06/27/2025 11:50 AM EDT Chilo Morales MD LAB MICROBIOLOGY - GENERAL ORDERABLES Final Result Performing Organization Address [facility] [address]/[facility] Co de Phone Number [facility] [address] [place] [address] * (ABNORMAL) Body Fluid Cell Count With Diff - Ascites (06/27/2025 9:16 AM EDT) Color, Body fluid [place] LAB HEMATOLOGY METHOD 06/27/2025 3:28 PM EDT [facility] Appearance, Body fluid Cloudy(A) LAB HEMATOLOGY METHOD 06/27/2025 3:28 PM EDT [facility] Volume, Body fluid 27.0 cc LAB HEMATOLOGY METHOD 06/27/2025 3:28 PM EDT [facility] Fluid Container Specimen received in miscellaneous container LAB HEMATOLOGY METHOD 06/27/2025 3:28 PM EDT [facility] Red Blood Cell Count, Body fluid 11,000 uL LAB HEMATOLOGY METHOD 06/27/2025 3:28 PM EDT [facility] Total Nucleated Cell Count, Body fluid 202 uL LAB HEMATOLOGY METHOD 06/27/2025 3:28 PM EDT [facility] Neutrophils %, Body fluid 0 % LAB HEMATOLOGY METHOD 06/27/2025 3:28 PM EDT [facility] Lymphocytes %, Body fluid 93 % LAB HEMATOLOGY METHOD 06/27/2025 3:28 PM EDT [facility] Monocytes/Macr ophages %, Body fluid 7 % LAB HEMATOLOGY METHOD 06/27/2025 3:28 PM EDT [facility] Eosinophils %, Body fluid 0 % LAB HEMATOLOGY METHOD 06/27/2025 3:28 PM EDT [facility] Lining/Mesothe lial Cells %, Body fluid 0 % LAB HEMATOLOGY METHOD 06/27/2025 3:28 PM EDT [facility] Neutrophils Absolute (PMN), Body fluid 0 uL LAB HEMATOLOGY METHOD 06/27/2025 3:28 PM EDT [facility] Lymphocytes Absolute, Body fluid 188 uL LAB HEMATOLOGY METHOD 06/27/2025 3:28 PM EDT [facility] Monocytes/Macr ophages Absolute, Body fluid 14 uL LAB HEMATOLOGY METHOD 06/27/2025 3:28 PM EDT [facility] Eosinophils Absolute, Body fluid 0 uL LAB HEMATOLOGY METHOD 06/27/2025 3:28 PM EDT [facility] Basophils Absolute, Body fluid 0 uL LAB HEMATOLOGY METHOD 06/27/2025 3:28 PM EDT [facility] Lining/Mesothe lial Cells Absolute, Body fluid 0 uL LAB HEMATOLOGY METHOD 06/27/2025 3:28 PM EDT [facility] Basophils %, Body fluid 0 % LAB HEMATOLOGY METHOD 06/27/2025 3:28 PM EDT [facility] Body Fluid Peritoneal fluid / Unknown Non-blood Collection / Unknown 06/27/2025 9:16 AM EDT 06/27/2025 11:21 AM EDT Chilo Morales MD LAB BODY FLUIDS AND STOOLS ORDERABLES NO SPECIMEN TYPE/SOURCE Final Result [facility] [address] [place] [address] * (ABNORMAL) POCT glucose meter (06/27/2025 5:53 AM EDT) POCT Glucose 108(H) 74 - 99 mg/dL 06/27/2025 5:55 AM EDT [facility] Comment:Accuracy of a glucos e result obtained from a capillary whole blood specimen relies upon adequate, non-compromised capillary blood flow. If the capillary glucose result is not consistent with the patient's clinical signs and symptoms, glucose testing should be repeated with either an arterial or venous sample on the glucometer or sent to the main labortory for testing. Comment 06/27/2025 5:55 AM EDT [facility] Scrap Worker ID Torrie Alston 5:55 AM EDT [facility] Device ID [id number] 06/27/2025 5:55 AM EDT [facility] Specimen Type POC Capillary 06/27/2025 5:55 AM EDT [facility] Blood Capillary blood specimen / Unknown 06/27/2025 5:53 AM EDT 06/27/2025 5:55 AM EDT us Chilo Morales MD LAB POINT OF CARE T EST DOCKED DEVICE UNSOLICITED RESULTS Final Result Performing Organization Address City/[facility] Co de Phone Number [facility] [address] [place] [address] * (ABNORMAL) Cystatin C (06/27/2025 4:03 AM EDT) Cystatin C 2.97(H) 0.61 - 0.95 mg/L 06/27/2025 11:21 AM EDT [facility] Blood Venous blood specimen / Unknown Venipuncture / Unknown 06/27/2025 4:03 AM EDT 06/27/2025 4:40 AM EDT us Chilo Morales MD LAB BLOOD ORDERABLES Final Result [facility] [address] [place] [address] * Morphology (06/27/2025 4:03 AM EDT) RBC Morphology Slide Reviewed LAB HEMATOLOGY METHOD 06/27/2025 5:26 AM EDT [facility] Target Cells Present LAB HEMATOLOGY METHOD 06/27/2025 5:26 AM EDT [facility] Blood Venous blood specimen / Unknown Venipuncture / Unknown 06/27/2025 4:03 AM EDT 06/27/2025 4:40 AM EDT us Chilo Morales MD LAB BLOOD ORDERABLES Final Result [facility] [address] [place] [address] * (ABNORMAL) Comprehensive metabolic panel (06/27/2025 4:03 AM EDT) Glucose, Plasma 139(H) 74 - 99 mg/dL 06/27/2025 5:03 AM EDT [facility] BUN, Plasma 31(H) 8 - 23 mg/dL 06/27/2025 5:03 AM EDT [facility] Creatinine, Plasma 1.95(H) 0.60 - 1.10 mg/dL 06/27/2025 5:03 AM EDT [facility] BUN/Creatinine Ratio 16 06/27/2025 5:03 AM EDT [facility] Sodium, Plasma 134(L) 136 - 145 mmol/L 06/27/2025 5:03 AM EDT [facility] Potassium, Plasma 3.8 3.6 - 4.9 mmol/L 06/27/2025 5:03 AM EDT [facility] Chloride, Plasma 108(H) 97 - 107 mmol/L 06/27/2025 5:03 AM EDT [facility] CO2, Plasma 18(L) 22 - 29 mmol/L 06/27/2025 5:03 AM EDT [facility] Anion Gap 8 6 - 16 mmol/L 06/27/2025 5:03 AM EDT [facility] Total Calcium, Plasma 8.5(L) 8.9 - 10.2 mg/dL 06/27/2025 5:03 AM EDT [facility] Total Protein 5.8(L) 6.3 - 7.9 g/dL 06/27/2025 5:03 AM EDT [facility] Albumin, Plasma 2.8(L) 3.5 - 5.2 g/dL 06/27/2025 5:03 AM EDT [facility] AST, Plasma 60(H) 10 - 35 U/L 06/27/2025 5:03 AM EDT [facility] ALT, Plasma 26 10 - 35 U/L 06/27/2025 5:03 AM EDT [facility] Alkaline Phosphatase, Plasma 215(H) 46 - 142 U/L 06/27/2025 5:03 AM EDT [facility] Total Bilirubin, Plasma 1.8(H) 0.2 - 1.1 mg/dL 06/27/2025 5:03 AM EDT [facility] eGFRcr 28.6 mL/min/1.7 3m*2 06/27/2025 5:03 AM EDT [facility] Comment:Reported eGFRcr in m L/min/1.73m2 is based the CKD-EPI 2020 equation that does not use a race coefficient. Blood Venous blood specimen / Unknown Venipuncture / Unknown 06/27/2025 4:03 AM EDT 06/27/2025 4:40 AM EDT us Chilo Morales MD LAB BLOOD ORDERABLES Final Result Performing Organization Address [facility] Co de Phone Number [facility] [address] [place] [address] * Phosphorus, Plasma (06/27/2025 4:03 AM EDT) Phosphorus, Plasma 3.2 2.5 - 4.5 mg/dL 06/27/2025 5:03 AM EDT [facility] Blood Venous blood specimen / Unknown Venipuncture / Unknown 06/27/2025 4:03 AM EDT 06/27/2025 4:40 AM EDT us Chilo Morales MD LAB BLOOD ORDERABLES Final Result Performing Organization Address [facility] Co de Phone Number [facility] [address] [place] [address] * (ABNORMAL) Magnesium, Plasma (06/27/2025 4:03 AM EDT) Magnesium, Plasma 1.5(L) 1.9 - 2.4 mg/dL 06/27/2025 5:03 AM EDT [facility] Blood Venous blood specimen / Unknown Venipuncture / Unknown 06/27/2025 4:03 AM EDT 06/27/2025 4:40 AM EDT us Chilo Morales MD LAB BLOOD ORDERABLES Final Result [facility] [address] [place] [address] * (ABNORMAL) CBC and Differential (06/27/2025 4:03 AM EDT) WBC Count 2.26(L) 3.70 - 10.30 10*3/uL LAB HEMATOLOGY METHOD 06/27/2025 5:26 AM EDT [facility] RBC Count 2.83(L) 3.90 - 5.20 10*6/uL LAB HEMATOLOGY METHOD 06/27/2025 5:26 AM EDT [facility] HGB 8.6(L) 11.2 - 15.7 g/dL LAB HEMATOLOGY METHOD 06/27/2025 5:26 AM EDT [facility] HCT 25.9(L) 34.0 - 45.0 % LAB HEMATOLOGY METHOD 06/27/2025 5:26 AM EDT [facility] Platelet Count 38(L) 155 - 369 10*3/uL LAB HEMATOLOGY METHOD 06/27/2025 5:26 AM EDT [facility] MCV 92 79 - 98 fL LAB HEMATOLOGY METHOD 06/27/2025 5:26 AM EDT [facility] MCH 30.4 26.0 - 32.0 pg LAB HEMATOLOGY METHOD 06/27/2025 5:26 AM EDT [facility] MCHC 33.2 30.7 - 35.5 g/dL LAB HEMATOLOGY METHOD 06/27/2025 5:26 AM EDT [facility] RDW 15.9(H) 11.5 - 14.5 % LAB HEMATOLOGY METHOD 06/27/2025 5:26 AM EDT [facility] MPV 11.8 8.8 - 12.5 fL LAB HEMATOLOGY METHOD 06/27/2025 5:26 AM EDT [facility] nRBC 0.0 <=0.0 per 100 WBCs LAB HEMATOLOGY METHOD 06/27/2025 5:26 AM EDT [facility] Differential Type Automated LAB HEMATOLOGY METHOD 06/27/2025 5:26 AM EDT [facility] Neutrophils % 43 % LAB HEMATOLOGY METHOD 06/27/2025 5:26 AM EDT [facility] Lymphocytes % 30 % LAB HEMATOLOGY METHOD 06/27/2025 5:26 AM EDT [facility] Monocytes % 24 % LAB HEMATOLOGY METHOD 06/27/2025 5:26 AM EDT [facility] Eosinophils % 3 % LAB HEMATOLOGY METHOD 06/27/2025 5:26 AM EDT [facility] Basophils % 0 % LAB HEMATOLOGY METHOD 06/27/2025 5:26 AM EDT [facility] Immature Granulocytes % 0 % LAB HEMATOLOGY METHOD 06/27/2025 5:26 AM EDT [facility] Neutrophils Absolute 0.98(LL) 1.60 - 6.10 10*3/uL LAB HEMATOLOGY METHOD 06/27/2025 5:26 AM EDT [facility] Lymphocytes Absolute 0.67(L) 1.20 - 3.90 10*3/uL LAB HEMATOLOGY METHOD 06/27/2025 5:26 AM EDT [facility] Monocytes Absolute 0.53 0.30 - 0.90 10*3/uL LAB HEMATOLOGY METHOD 06/27/2025 5:26 AM EDT [facility] Eosinophils Absolute 0.07 0.00 - 0.50 10*3/uL LAB HEMATOLOGY METHOD 06/27/2025 5:26 AM EDT [facility] Basophils Absolute 0.01 0.00 - 0.10 10*3/uL LAB HEMATOLOGY METHOD 06/27/2025 5:26 AM EDT [facility] Immature Granulocytes Absolute 0.00 0.00 - 0.06 10*3/uL LAB HEMATOLOGY METHOD 06/27/2025 5:26 AM EDT [facility] Blood Venous blood specimen / Unknown Venipuncture / Unknown 06/27/2025 4:03 AM EDT 06/27/2025 4:40 AM EDT Narrative [facility] - 06/27/2025 5:26 AM EDT Therapeutic decision making should be based on absolute values, rather than percentages. us Chilo Morales MD LAB BLOOD ORDERABLES Final Result [facility] [address] [place] [address] * (ABNORMAL) POCT glucose meter (06/27/2025 12:02 AM EDT) POCT Glucose 132(H) 74 - 99 mg/dL 06/27/2025 12:04 AM EDT [facility] Comment:Accuracy of a glucos e result obtained from a capillary whole blood specimen relies upon adequate, non-compromised capillary blood flow. If the capillary glucose result is not consistent with the patient's clinical signs and symptoms, glucose testing should be repeated with either an arterial or venous sample on the glucometer or sent to the main labortory for testing. Comment 06/27/2025 12:04 AM EDT [facility] Scrap Worker ID Torrie Alston 12:04 AM EDT [facility] Device ID [id number] 06/27/2025 12:04 AM EDT [facility] Specimen Type POC Capillary 06/27/2025 12:04 AM EDT [facility] Blood Capillary blood specimen / Unknown 06/27/2025 12:02 AM EDT 06/27/2025 12:04 AM EDT us Chilo Morales MD LAB POINT OF CARE T EST DOCKED DEVICE UNSOLICITED RESULTS Final Result Performing Organization Address City/State/[facility] Co de Phone Number [facility] [address] [place] [address] * (ABNORMAL) POCT glucose meter (06/26/2025 8:51 PM EDT) [facility] POCT Glucose 154(H) 74 - 99 mg/dL 06/26/2025 8:53 PM EDT [facility] Comment:Accuracy of a glucos e result obtained from a capillary whole blood specimen relies upon adequate, non-compromised capillary blood flow. If the capillary glucose result is not consistent with the patient's clinical signs and symptoms, glucose testing should be repeated with either an arterial or venous sample on the glucometer or sent to the main labortory for testing. Comment 06/26/2025 8:53 PM EDT [facility] Scrap Worker ID Torrie Alston 8:53 PM EDT [facility] Device ID [id number] 06/26/2025 8:53 PM EDT [facility] Specimen Type POC Capillary 06/26/2025 8:53 PM EDT [facility] Blood Capillary blood specimen / Unknown 06/26/2025 8:51 PM EDT 06/26/2025 8:53 PM EDT us Chilo Morales MD LAB POINT OF CARE T EST DOCKED DEVICE UNSOLICITED RESULTS Final Result Performing Organization Address [facility] Co de Phone Number [facility] [address] [place] [address] * (ABNORMAL) POCT glucose meter (06/26/2025 4:56 PM EDT) Pathologist [facility] POCT Glucose 253(H) 74 - 99 mg/dL 06/26/2025 4:58 PM EDT [facility] Comment:Accuracy of [...] to the main labortory for testing. Comment 06/26/2025 4:58 PM EDT [facility] Scrap Worker ID Evelio Munoz 06/26/2025 4:58 PM EDT [facility] Device ID [id number] 06/26/2025 4:58 PM EDT [facility] Specimen Type POC Capillary 06/26/2025 4:58 PM EDT [facility] Blood Capillary blood specimen / Unknown 06/26/2025 4:56 PM EDT 06/26/2025 4:58 PM EDT us Chilo Morales MD LAB POINT OF CARE T EST DOCKED DEVICE UNSOLICITED RESULTS Final Result Performing Organization Address City/[facility] [address]/[facility] Co de Phone Number [facility] [address] [place] [address] * (ABNORMAL) POCT glucose meter (06/26/2025 12:16 PM EDT) Pathologist [facility] POCT Glucose 228(H) 74 - 99 mg/dL 06/26/2025 12:18 PM EDT [facility] Comment:Accuracy of [...] to the main labortory for testing. Comment 06/26/2025 12:18 PM EDT [facility] Scrap Worker ID Evelio Munoz 06/26/2025 12:18 PM EDT [facility] Device ID [id number] 06/26/2025 12:18 PM EDT [facility] Specimen Type POC Capillary 06/26/2025 12:18 PM EDT [facility] Blood Capillary blood specimen / Unknown 06/26/2025 12:16 PM EDT 06/26/2025 12:18 PM EDT Chilo Morales MD LAB POINT OF CARE T EST DOCKED DEVICE UNSOLICITED RESULTS Final Result Performing Organization Address City/[facility]/ZIP Co de Phone Number [facility] [address] [place] [address] * (ABNORMAL) Cystatin C (06/26/2025 11:13 AM EDT) Cystatin C 3.12(H) 0.61 - 0.95 mg/L 06/26/2025 1:26 PM EDT [facility] Blood Venous blood specimen / Unknown Venipuncture / Unknown 06/26/2025 11:13 AM EDT 06/26/2025 11:30 AM EDT Result [facility] Chilo Morales MD LAB BLOOD ORDERABLES Final Result [facility] [address] [place] [address] * Protein, Random, Urine with Creatinine (06/26/2025 10:40 AM EDT) Protein, Urine 56 mg/dL 06/26/2025 11:35 AM EDT [facility] Creatinine, Urine 181 mg/dL 06/26/2025 11:35 AM EDT [facility] Protein/Creati nine Ratio 0.3 mg/mg Creat 06/26/2025 11:35 AM EDT [facility] Urine Urine specimen obtained by clean catch procedure / Unknown Non-blood Collection / Unknown 06/26/2025 10:40 AM EDT 06/26/2025 11:03 AM EDT Chilo Morales MD LAB URINE ORDERABLES Final Result Performing Organization Address [facility] Co de Phone Number [facility] [address] [place] [address] * Urea nitrogen, urine (06/26/2025 10:40 AM EDT) [facility] Urea Nitrogen, Urine 938 mg/dL 06/26/2025 2:02 PM EDT [facility] Urine Urine specimen obtained by clean catch procedure / Unknown Non-blood Collection / Unknown 06/26/2025 10:40 AM EDT 06/26/2025 11:03 AM EDT Chilo Morales MD LAB URINE ORDERABLES Final Result Performing Organization Address [facility] Phone Number [facility] [address] [place] [address] * (ABNORMAL) POCT glucose meter (06/26/2025 9:00 AM EDT) [facility] POCT Glucose 120(H) 74 - 99 mg/dL 06/26/2025 9:02 AM EDT [facility] Comment:Accuracy of a glucos e result obtained from a capillary whole blood specimen relies upon adequate, non-compromised capillary blood flow. If the capillary glucose result is not consistent with the patient's clinical signs and symptoms, glucose testing should be repeated with either an arterial or venous sample on the glucometer or sent to the main labortory for testing. Comment 06/26/2025 9:02 AM EDT [facility] Scrap Worker ID Armand Munozrett 06/26/2025 9:02 AM EDT [facility] Device ID [id number] 06/26/2025 9:02 AM EDT [facility] Specimen Type POC Capillary 06/26/2025 9:02 AM EDT [facility] Blood Capillary blood specimen / Unknown 06/26/2025 9:00 AM EDT 06/26/2025 9:02 AM EDT Chilo Morales MD LAB POINT OF CARE T EST DOCKED DEVICE UNSOLICITED RESULTS Final Result Performing Organization Address City/[facility]/ZIP Co de Phone Number [facility] [address] [place] [address] * POCT glucose meter (06/26/2025 8:30 AM EDT) [facility] POCT Glucose 81 74 - 99 mg/dL 06/26/2025 8:31 AM EDT [facility] Comment:Accuracy of a glucos e result obtained from a capillary whole blood specimen relies upon adequate, non-compromised capillary blood flow. If the capillary glucose result is not consistent with the patient's clinical signs and symptoms, glucose testing should be repeated with either an arterial or venous sample on the glucometer or sent to the main labortory for testing. Comment 06/26/2025 8:31 AM EDT [facility] Scrap Worker ID Evelio Munoz 06/26/2025 8:31 AM EDT [facility] Device ID [id number] 06/26/2025 8:31 AM EDT [facility] Specimen Type POC Capillary 06/26/2025 8:31 AM EDT [facility] Blood Capillary blood specimen / Unknown 06/26/2025 8:30 AM EDT 06/26/2025 8:31 AM EDT us Chilo Morales MD LAB POINT OF CARE T EST DOCKED DEVICE UNSOLICITED RESULTS Final Result Performing Organization Address [facility] Co de Phone Number [facility] [address] [place] [address] * (ABNORMAL) Osmolality (06/26/2025 3:47 AM EDT) [facility] Osmolality, Serum 307(H) 280 - 301 mOsm/Kg 06/26/2025 9:36 AM EDT [facility] Blood Venous blood specimen / Unknown Venipuncture / Unknown 06/26/2025 3:47 AM EDT 06/26/2025 4:09 AM EDT us Chilo Morales MD LAB BLOOD ORDERABLES Final Result Performing Organization Address [facility] Co de Phone Number [facility] [address] [place] [address] * (ABNORMAL) Comprehensive metabolic panel (06/26/2025 3:47 AM EDT) [facility] Glucose, Plasma 117(H) 74 - 99 mg/dL 06/26/2025 4:51 AM EDT [facility] BUN, Plasma 35(H) 8 - 23 mg/dL 06/26/2025 4:[facility] Creatinine, Plasma 2.32(H) 0.60 - 1.10 mg/dL 06/26/2025 4:51 AM EDT [facility] BUN/Creatinine Ratio 15 06/26/2025 4:51 [facility] LAB Sodium, Plasma 136 136 - 145 mmol/L 06/26/2025 4:51 AM [facility] Potassium, Plasma 4.2 3.6 - 4.9 mmol/L 06/26/2025 4:51 AM [facility] Chloride, Plasma 110(H) 97 - 107 mmol/L 06/26/2025 4:51 AM [facility] CO2, Plasma 17(L) 22 - 29 mmol/L 06/26/2025 4:51 AM [facility] Anion Gap 9 6 - 16 mmol/L 06/26/2025 4:51 AM [facility] Total Calcium, Plasma 8.9 8.9 - 10.2 mg/dL 06/26/2025 4:51 AM [facility] Total Protein 5.9(L) 6.3 - 7.9 g/dL 06/26/2025 4:51 AM [facility] Albumin, Plasma 2.8(L) 3.5 - 5.2 g/dL 06/26/2025 4:51 AM [facility] AST, Plasma 64(H) 10 - 35 U/L 06/26/2025 4:51 AM [facility] ALT, Plasma 23 10 - 35 U/L 06/26/2025 4:51 AM [facility] Alkaline Phosphatase, Plasma 189(H) 46 - 142 U/L 06/26/2025 4:51 AM [facility] Total Bilirubin, Plasma 1.9(H) 0.2 - 1.1 mg/dL 06/26/2025 4:51 AM [facility] eGFRcr 23.3 mL/min/1.7 3m*2 06/26/2025 4:51 AM [facility] Comment:Reported eGFRcr in m L/min/1.73m2 is based the CKD-EPI 2020 equation that does not use a race coefficient. Blood Venous blood specimen / Unknown Venipuncture / Unknown 06/26/2025 3:47 AM EDT 06/26/2025 4:09 AM EDT us Chilo Morales MD LAB BLOOD ORDERABLES Final Result Performing Organization Address City/[facility] [address]/[facility] Co de Phone Number [facility]ALTH[facility]ARE [facility] [address] [place] [address] * Phosphorus, Plasma (06/26/2025 3:47 AM EDT) Phosphorus, Plasma 3.4 2.5 - 4.5 mg/dL 06/26/2025 4:51 AM EDT [facility] Blood Venous blood specimen / Unknown Venipuncture / Unknown 06/26/2025 3:47 AM EDT 06/26/2025 4:09 AM EDT us Chilo Morales MD LAB BLOOD ORDERABLES Final Result Performing Organization Address [facility] de Phone Number [facility] [address] [place] [address] * (ABNORMAL) Magnesium, Plasma (06/26/2025 3:47 AM EDT) Magnesium, Plasma 1.7(L) 1.9 - 2.4 mg/dL 06/26/2025 4:51 AM [facility]T [facility] Blood Venous blood specimen / Unknown Venipuncture / Unknown 06/26/2025 3:47 AM EDT 06/26/2025 4:09 AM EDT us Chilo Morales MD LAB BLOOD ORDERABLES Final Result Performing Organization Address City/[facility] [address]/[facility] Co de Phone Number [facility] [address] [place] [address] * (ABNORMAL) CBC and Differential (06/26/2025 3:47 AM EDT) WBC Count 1.89(L) 3.70 - 10.30 10*3/uL LAB HEMATOLOGY METHOD 06/26/2025 4:54 AM EDT [facility] RBC Count 2.75(L) 3.90 - 5.20 10*6/uL LAB HEMATOLOGY METHOD 06/26/2025 4:54 AM EDT [facility] HGB 8.3(L) 11.2 - 15.7 g/dL LAB HEMATOLOGY METHOD 06/26/2025 4:54 AM EDT [facility] HCT 25.7(L) 34.0 - 45.0 % LAB HEMATOLOGY METHOD 06/26/2025 4:54 AM EDT [facility] Platelet Count 38(L) 155 - 369 10*3/uL LAB HEMATOLOGY METHOD 06/26/2025 4:54 AM EDT [facility] MCV 94 79 - 98 fL LAB HEMATOLOGY METHOD 06/26/2025 4:54 AM EDT [facility] MCH 30.2 26.0 - 32.0 pg LAB HEMATOLOGY METHOD 06/26/2025 4:54 AM EDT [facility] MCHC 32.3 30.7 - 35.5 g/dL LAB HEMATOLOGY METHOD 06/26/2025 4:54 AM EDT [facility] RDW 16.2(H) 11.5 - 14.5 % LAB HEMATOLOGY METHOD 06/26/2025 4:54 AM EDT [facility] MPV 12.5 8.8 - 12.5 fL LAB HEMATOLOGY METHOD 06/26/2025 4:54 AM EDT [facility] nRBC 0.0 <=0.0 per 100 WBCs LAB HEMATOLOGY METHOD 06/26/2025 4:54 AM EDT [facility] Differential Type Automated LAB HEMATOLOGY METHOD 06/26/2025 4:54 AM EDT [facility] Neutrophils % 39 % LAB HEMATOLOGY METHOD 06/26/2025 4:54 AM EDT [facility] Lymphocytes % 32 % LAB HEMATOLOGY METHOD 06/26/2025 4:54 AM EDT [facility] Monocytes % 23 % LAB HEMATOLOGY METHOD 06/26/2025 4:54 AM EDT [facility] Eosinophils % 4 % LAB HEMATOLOGY METHOD 06/26/2025 4:54 AM EDT [facility] Basophils % 1 % LAB HEMATOLOGY METHOD 06/26/2025 4:54 AM EDT [facility] Immature Granulocytes % 1 % LAB HEMATOLOGY METHOD 06/26/2025 4:54 AM EDT [facility] Neutrophils Absolute 0.75(LL) 1.60 - 6.10 10*3/uL LAB HEMATOLOGY METHOD 06/26/2025 4:54 AM [facility]T [facility] Lymphocytes Absolute 0.60(L) 1.20 - 3.90 10*3/uL LAB HEMATOLOGY METHOD 06/26/2025 4:54 AM EDT [facility] Monocytes Absolute 0.43 0.30 - 0.90 10*3/uL LAB HEMATOLOGY METHOD 06/26/2025 4:54 AM EDT [facility] Eosinophils Absolute 0.08 0.00 - 0.50 10*3/uL LAB HEMATOLOGY METHOD 06/26/2025 4:54 AM [facility] Basophils Absolute 0.02 0.00 - 0.10 10*3/uL LAB HEMATOLOGY METHOD 06/26/2025 4:54 AM EDT [facility] Immature Granulocytes Absolute 0.01 0.00 - 0.06 10*3/uL LAB HEMATOLOGY METHOD 06/26/2025 4:54 AM EDT [facility] Blood Venous blood specimen / Unknown Venipuncture / Unknown 06/26/2025 3:47 AM EDT 06/26/2025 4:09 AM EDT Narrative [facility] - 06/26/2025 4:54 AM EDT Therapeutic decision making should be based on absolute values, rather than percentages. Chilo Morales MD LAB BLOOD ORDERABLES Final Result [facility] [address] [place] [id number] * (ABNORMAL) POCT glucose meter (06/25/2025 7:49 PM EDT) [facility] POCT Glucose 180(H) 74 - 99 mg/dL 06/25/2025 7:51 PM EDT [facility] Comment:Accuracy of a glucos e result obtained from a capillary whole blood specimen relies upon adequate, non-compromised capillary blood flow. If the capillary glucose result is not consistent with the patient's clinical signs and symptoms, glucose testing should be repeated with either an arterial or venous sample on the glucometer or sent to the main labortory for testing. Comment 06/25/2025 7:51 PM EDT [facility] Scrap Worker ID Jeannie Espinoza 025 7:51 PM EDT [facility] Device ID [id number] 06/25/2025 7:51 PM EDT [facility] Specimen Type POC Capillary 06/25/2025 7:51 PM EDT [facility] Blood Capillary blood specimen / Unknown 06/25/2025 7:49 PM EDT 06/25/2025 7:51 PM EDT us Chilo Morales MD LAB POINT OF CARE T EST DOCKED DEVICE UNSOLICITED RESULTS Final Result Performing Organization Address City/[facility] [address]/[facility] Co de Phone Number [facility]ALTH[facility]ARE [facility] [address] [place] [address] * (ABNORMAL) POCT glucose meter (06/25/2025 6:18 PM EDT) [facility] POCT Glucose 175(H) 74 - 99 mg/dL 06/25/2025 6:19 PM EDT [facility] Comment:Accuracy of [...] to the main labortory for testing. Comment 06/25/2025 6:19 PM EDT [facility] Scrap Worker ID Nadia Salazar 6:19 PM EDT [facility] Device ID [id number] 06/25/2025 6:19 PM EDT [facility] Specimen Type POC Capillary 06/25/2025 6:19 PM EDT [facility] Blood Capillary blood specimen / Unknown 06/25/2025 6:18 PM EDT 06/25/2025 6:19 PM EDT us Kadie Mauro MD LAB POINT OF CARE TE ST DOCKED DEVICE UNSOLICITED RESULTS Final Result Performing Organization Address City/[facility] [address]/ZIP Co de Phone Number [facility] [address] [place] [address] * XR Chest 1 View (06/25/2025 3:53 PM EDT) Anatomical Region Laterality Modality Chest Digital Radiogra phy Impressions 06/25/2025 4:12 PM EDT New medium-sized right pleural effusion. New right lower and middle lobe opacities may represent atelectasis, however superimposed infection cannot definitely be excluded. CRITICAL RESULT: No. COMMUNICATION: Per this written report. Drafted by Nory Singh MD on 06/25/2025 4:08 PM Final report signed by Nory Singh MD on 06/25/2025 4:12 PM Narrative 06/25/2025 4:12 PM EDT CLINICAL INDICATION: hx of pleural effusion, SOA TECHNIQUE: XR CHEST 1 VIEW COMPARISON: 06/20/2025. FINDINGS: New medium-sized right pleural effusion. New right lower and middle lobe opacities. No pneumothorax. Decreased lung volumes with vascular crowding; cardiac silhouette and mediastinal contours are stable within these confines. Procedure Note Nory Singh MD - 06/25/2025 CLINICAL INDICATION: hx of pleural effusion, SOA TECHNIQUE: XR CHEST 1 VIEW COMPARISON: 06/20/2025. FINDINGS: New medium-sized right pleural effusion. New right lower and middle lobeopacities. No pneumothorax. Decreased lung volumes with vascular crowding;cardiac silhouette and mediastinal contours are stable within theseconfines. IMPRESSION: New medium-sized right pleural effusion. New right lower and middle lobeopacities may represent atelectasis, however superimposed infection cannotdefinitely be excluded. CRITICAL RESULT: No. COMMUNICATION: Per this written report. Drafted by Nory Singh MD on 06/25/2025 4:08 PM Final report signed by Nory Singh MD on 06/25/2025 4:12 PM us Raymundo Childers MD IMG XR PROCEDURES Final Result * Morphology (06/25/2025 3:00 PM EDT) Polychromasia Slight LAB HEMATOLOGY METHOD 06/25/2025 4:38 PM EDT [facility] Elliptocytes/Ova locytes Present LAB HEMATOLOGY METHOD 06/25/2025 4:38 PM EDT [facility] RBC Morphology Slide Reviewed LAB HEMATOLOGY METHOD 06/25/2025 4:38 PM EDT [facility] Platelet Estimate Platelet smear estimate consistent with automated count LAB HEMATOLOGY METHOD 06/25/2025 4:38 PM EDT [facility] Blood Venous blood specimen / Unknown Venipuncture / Unknown 06/25/2025 3:00 PM EDT 06/25/2025 3:10 PM EDT us Raymundo Childers MD LAB BLOOD ORDERABLES Final Resul t [facility] [address] [place] [address] * (ABNORMAL) Manual Differential (06/25/2025 3:00 PM EDT) Blasts % 0 % LAB HEMATOLOGY METHOD 06/25/2025 4:38 PM EDT [facility] Promyelocytes % 0 % LAB HEMATOLOGY METHOD 06/25/2025 4:38 PM EDT [facility] Myelocytes % 0 % LAB HEMATOLOGY METHOD 06/25/2025 4:38 PM EDT [facility] Metamyelocytes % 0 % LAB HEMATOLOGY METHOD 06/25/2025 4:38 PM EDT [facility] Neutrophils % 69 % LAB HEMATOLOGY METHOD 06/25/2025 4:38 PM EDT [facility] Lymphocytes % 15 % LAB HEMATOLOGY METHOD 06/25/2025 4:38 PM EDT [facility] Reactive Lymphocytes % 0 % LAB HEMATOLOGY METHOD 06/25/2025 4:38 PM EDT [facility] Monocytes % 11 % LAB HEMATOLOGY METHOD 06/25/2025 4:38 PM EDT [facility] Eosinophils % 1 % LAB HEMATOLOGY METHOD 06/25/2025 4:38 PM EDT [facility] Basophils % 4 % LAB HEMATOLOGY METHOD 06/25/2025 4:38 PM EDT [facility] Blasts Absolute LAB HEMATOLOGY METHOD 06/25/2025 4:38 PM EDT [facility] Promyelocytes Absolute LAB HEMATOLOGY METHOD 06/25/2025 4:38 PM EDT [facility] Myelocytes Absolute LAB HEMATOLOGY METHOD 06/25/2025 4:38 PM EDT [facility] Metamyelocytes Absolute LAB HEMATOLOGY METHOD 06/25/2025 4:38 PM EDT [facility] Neutrophils Absolute 1.61 1.60 - 6.10 10*3/uL LAB HEMATOLOGY METHOD 06/25/2025 4:38 PM EDT [facility] Lymphocytes Absolute 0.35(L) 1.20 - 3.90 10*3/uL LAB HEMATOLOGY METHOD 06/25/2025 4:38 PM EDT [facility] Reactive Lymphocytes Absolute LAB HEMATOLOGY METHOD 06/25/2025 4:38 PM EDT [facility] Monocytes Absolute 0.26(L) 0.30 - 0.90 10*3/uL LAB HEMATOLOGY METHOD 06/25/2025 4:38 PM EDT [facility] Eosinophils Absolute 0.02 0.00 - 0.50 10*3/uL LAB HEMATOLOGY METHOD 06/25/2025 4:38 PM EDT [facility] Basophils Absolute 0.09 0.00 - 0.10 10*3/uL LAB HEMATOLOGY METHOD 06/25/2025 4:38 PM EDT [facility] Blood Venous blood specimen / Unknown Venipuncture / Unknown 06/25/2025 3:00 PM EDT 06/25/2025 3:10 PM EDT us Raymundo Childers MD LAB BLOOD ORDERABLES Final Resul t Performing Organization Address City/[facility] [address]/ZIP Co de Phone Number [facility] [address] [place] [address] * Phosphorus (06/25/2025 3:00 PM EDT) Phosphorus, Plasma 3.5 2.5 - 4.5 mg/dL 06/25/2025 3:36 PM EDT [facility] Blood Venous blood specimen / Unknown Venipuncture / Unknown 06/25/2025 3:00 PM EDT 06/25/2025 3:11 PM EDT us Raymundo Childers MD LAB BLOOD ORDERABLES Final Resul t Performing Organization Address City/[facility] [address]/ZIP Co de Phone Number [facility] [address] [place] [address] * (ABNORMAL) Magnesium (06/25/2025 3:00 PM EDT) Magnesium, Plasma 1.6(L) 1.9 - 2.4 mg/dL 06/25/2025 3:36 PM EDT [facility] Blood Venous blood specimen / Unknown Venipuncture / Unknown 06/25/2025 3:00 PM EDT 06/25/2025 3:11 PM EDT us Raymundo Childers MD LAB BLOOD ORDERABLES Final Resul t [facility] [address] [place] [address] * (ABNORMAL) CMP (06/25/2025 3:00 PM EDT) Glucose, Plasma 242(H) 74 - 99 mg/dL 06/25/2025 3:36 PM EDT [facility] BUN, Plasma 37(H) 8 - 23 mg/dL 06/25/2025 3:36 PM EDT [facility] Creatinine, Plasma 2.50(H) 0.60 - 1.10 mg/dL 06/25/2025 3:36 PM EDT [facility] BUN/Creatinine Ratio 15 06/25/2025 3:36 PM EDT [facility] Sodium, Plasma 132(L) 136 - 145 mmol/L 06/25/2025 3:36 PM EDT [facility] Potassium, Plasma 4.3 3.6 - 4.9 mmol/L 06/25/2025 3:36 PM EDT [facility] Chloride, Plasma 104 97 - 107 mmol/L 06/25/2025 3:36 PM EDT [facility] CO2, Plasma 17(L) 22 - 29 mmol/L 06/25/2025 3:36 PM EDT [facility] Anion Gap 11 6 - 16 mmol/L 06/25/2025 3:36 PM EDT [facility] Total Calcium, Plasma 9.1 8.9 - 10.2 mg/dL 06/25/2025 3:36 PM EDT [facility] Total Protein 6.7 6.3 - 7.9 g/dL 06/25/2025 3:36 PM EDT [facility] Albumin, Plasma 3.0(L) 3.5 - 5.2 g/dL 06/25/2025 3:36 PM EDT [facility] AST, Plasma 76(H) 10 - 35 U/L 06/25/2025 3:36 PM EDT [facility] ALT, Plasma 29 10 - 35 U/L 06/25/2025 3:36 PM EDT [facility] Alkaline Phosphatase, Plasma 218(H) 46 - 142 U/L 06/25/2025 3:36 PM EDT [facility] Total Bilirubin, Plasma 2.1(H) 0.2 - 1.1 mg/dL 06/25/2025 3:36 PM EDT [facility] eGFRcr 21.3 mL/min/1.7 3m*2 06/25/2025 3:36 PM EDT [facility] Comment:Reported eGFRcr in m L/min/1.73m2 is based the CKD-EPI 2020 equation that does not use a race coefficient. Blood Venous blood specimen / Unknown Venipuncture / Unknown 06/25/2025 3:00 PM EDT 06/25/2025 3:11 PM EDT us Raymundo Childers MD LAB BLOOD ORDERABLES Final Resul t [facility] [address] [place] [address] * (ABNORMAL) PT-INR (06/25/2025 3:00 PM EDT) Prothrombin Time 22.3(H) 12.0 - 14.3 sec 06/25/2025 3:32 PM EDT [facility] INR 2.0(H) 0.9 - 1.1 06/25/2025 3:32 PM EDT [facility] Blood Venous blood specimen / Unknown Venipuncture / Unknown 06/25/2025 3:00 PM EDT 06/25/2025 3:11 PM EDT Narrative [facility] - 06/25/2025 3:32 PM EDT OPTIMAL INR RANGES FOR PATIENT ON ORAL ANTICOAGULANT THERAPY Prevention of venous thromboembolism INR 2.0 to 3.0 In patients with heart disease: Atrial fibrillation INR 2.0 to 3.0 Valvular heart disease INR 2.0 to 3.0 Tissue heart valves INR 2.0 to 3.0 Mechanical prosthetic valves INR 2.5 to 3.5 Prevention of recurrent AZ INR 2.5 to 3.5 us Raymundo Childers MD LAB BLOOD ORDERABLES Final Resul t [facility] [address] [place] [address] * (ABNORMAL) CBC w/diff (06/25/2025 3:00 PM EDT) WBC Count 2.33(L) 3.70 - 10.30 10*3/uL LAB HEMATOLOGY METHOD 06/25/2025 4:38 PM EDT [facility] RBC Count 2.99(L) 3.90 - 5.20 10*6/uL LAB HEMATOLOGY METHOD 06/25/2025 4:38 PM EDT [facility] HGB 9.3(L) 11.2 - 15.7 g/dL LAB HEMATOLOGY METHOD 06/25/2025 4:38 PM EDT [facility] HCT 28.0(L) 34.0 - 45.0 % LAB HEMATOLOGY METHOD 06/25/2025 4:38 PM EDT [facility] Platelet Count 39(L) 155 - 369 10*3/uL LAB HEMATOLOGY METHOD 06/25/2025 4:38 PM EDT [facility] MCV 94 79 - 98 fL LAB HEMATOLOGY METHOD 06/25/2025 4:38 PM EDT [facility] MCH 31.1 26.0 - 32.0 pg LAB HEMATOLOGY METHOD 06/25/2025 4:38 PM EDT [facility] MCHC 33.2 30.7 - 35.5 g/dL LAB HEMATOLOGY METHOD 06/25/2025 4:38 PM EDT [facility] RDW 16.2(H) 11.5 - 14.5 % LAB HEMATOLOGY METHOD 06/25/2025 4:38 PM EDT [facility] MPV 11.6 8.8 - 12.5 fL LAB HEMATOLOGY METHOD 06/25/2025 4:38 PM EDT [facility] nRBC 0.0 <=0.0 per 100 WBCs LAB HEMATOLOGY METHOD 06/25/2025 4:38 PM EDT [facility] Differential Type Manual LAB HEMATOLOGY METHOD 06/25/2025 4:38 PM EDT [facility] Blood Venous blood specimen / Unknown Venipuncture / Unknown 06/25/2025 3:00 PM EDT 06/25/2025 3:10 PM EDT Narrative [facility] - 06/25/2025 4:38 PM EDT Therapeutic decision making should be based on absolute values, rather than percentages. The previously reported component Neutrophils % is no longer being reported.The previously reported component Lymphocytes % is no longer being reported.The previously reported component Monocytes % is no longer being reported.The previously reported component Eosinophils % is no longer being reported.The previously reported component Basophils % is no longer being reported.The previously reported component Immature Granulocytes % is no longer being reported.The previously reported component Absolute Neutrophils is no longer being reported.The previously reported component Absolute Lymphocytes is no longer being reported.The previously reported component Absolute Monocytes is no longer being reported.The previously reported component Absolute Eosinophils is no longer being reported.The previously reported component Absolute Basophils is no longer being reported.The previously reported component Absolute Immature Granulocytes is no longer being reported. us Raymundo Childers MD LAB BLOOD ORDERABLES Final Resul t [facility] [address] [place] [address] * ECG Adult (06/25/2025 2:48 PM EDT) EKG DIAGNOSIS CLASS Abnormal MUSE ECG Ventricular Rate 61 BPM MUSE ECG QRSD Interval 86 ms MUSE ECG QT Interval 448 ms MUSE ECG QTC Interval 450 ms MUSE ECG R [place] -25 degrees MUSE ECG T Wave [place] 25 degrees MUSE ECG Diagnosis Poor data quality, interpretation may be adversely affected MUSE ECG Diagnosis Likely Normal sinus rhythm MUSE ECG Diagnosis Low voltage QRS MUSE ECG Diagnosis Abnormal ECG MUSE ECG Diagnosis Recommend repeat ECG MUSE ECG Diagnosis Confirmed by Alex Sotelo ([id number]) on 06/26/2025 9:55:48 AM MUSE ECG 06/25/2025 2:48 PM EDT 06/26/2025 9:55 AM EDT us Raymundo Childers MD ECG ORDERABLES Final Result Performing Organization Address [facility] [address]/[facility] Co de Phone Number MUSE ECG * (ABNORMAL) POCT glucose meter (06/25/2025 2:27 PM EDT) POCT Glucose 245(H) 74 - 99 mg/dL 06/25/2025 2:29 PM EDT [facility] Comment:Accuracy of [...] to the main labortory for testing. Comment 06/25/2025 2:29 PM EDT [facility] Scrap Worker ID Hanane Washington 2:29 PM EDT [facility] Device ID [id number] 06/25/2025 2:29 PM EDT [facility] Specimen Type POC Capillary 06/25/2025 2:29 PM EDT [facility] Blood Capillary blood specimen / Unknown 06/25/2025 2:27 PM EDT 06/25/2025 2:29 PM EDT us Generic Provider Poct LAB POINT OF CARE TEST DOCKED DEVICE UNSOLICITED RESULTS Final Result Performing Organization Address City/[facility] [address]/[facility] Co de Phone Number [facility] [address] [place] [address] documented in this encounter Visit Diagnoses Diagnosis Cirrhosis of liver with ascites (CMS/HCC)- Primary CARLOTTA (acute kidney injury) (CMS/HCC) Acute kidney injury superimposed on stage 3b chronic kidney disease (CMS/HCC) Chronic kidney disease, stage 3b (CMS/HCC) Cirrhosis of liver with ascites, unspecified hepatic cirrhosis type (CMS/HCC) Hx of spontaneous bacterial peritonitis Physical debility Pancytopenia Self-care deficit Pleural effusion Unspecified pleural effusion Shortness of breath Other ascites Alcoholic cirrhosis of liver with ascites (CMS/HCC) Acute kidney injury superimposed on stage 3b chronic kidney disease (CMS/HCC) Chronic obstructive pulmonary disease (CMS/HCC) Chronic kidney disease, stage 3b (CMS/HCC) 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 ([facility]/HCC) Diabetic peripheral neuropathy ([facility]/HCC) Type II or unspecified type diabetes mellitus with neurological manifestations, not stated as uncontrolled Dysphagia Obesity (BMI 30.0-34.9) JONATHAN treated with BiPAP Hyperlipidemia Other and unspecified hyperlipidemia Type 2 diabetes mellitus, with long-term current use of insulin (CMS/HCC) Hx of spontaneous bacterial peritonitis Physical debility Pleural effusion associated with hepatic disorder Other specified forms of effusion, except tuberculous LLQ abdominal pain Abdominal pain, left lower quadrant Self-care deficit CARLOTTA (acute kidney injury) (CMS/HCC) Heartburn Neutropenia Pancytopenia Hypomagnesemia Disorders of magnesium metabolism Serum ammonia increased ([facility]/HCC) 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 Lupus (systemic lupus erythematosus) ([facility]/HCC) Systemic lupus erythematosus Vasovagal syncope Syncope and collapse documented in this encounter Admitting Diagnoses Diagnosis CARLOTTA (acute kidney injury) ([facility]) documented in this encounter Administered Medications Inactive Administered Medications - up to 3 most recent administrations Medication Order MAR Action Action Date Dose Rate Site acetaminophen (Tylenol) tablet 500 mg 500 mg, Oral, Once, 1 dose, On Tue07/03/25 at 1915, Routine Given 07/03/2025 6:55 PM EDT 500 mg albumin human 25 % infusion 12.5 g 12.5 g, Intravenous, Every 15 min PRN, 5 doses, Starting on Sarahi 06/27/25 at 1007, Until Tue07/09/25 at 1519, Routine, Give additional 12.5 g doses per albumin replacement chart albumin human 25 % infusion 12.5 g 12.5 g, Intravenous, Every 15 min PRN, 5 doses, Starting on Sarahi 07/04/25 at 1051, Until Tue07/09/25 at 1519, Routine, Give additional 12.5 g doses per albumin replacement chart albumin human 25 % infusion 37.5 g 37.5 g, Intravenous, Once as needed, 1 dose, Starting on Tue06/27/25 at 1007, Until Tue06/27/25 at 1015, Routine, For 5-6.9 L drained New Bag 06/27/2025 10:15 AM EDT 37.5 g albumin human 25 % infusion 37.5 g 37.5 g, Intravenous, Once as needed, 1 dose, Starting on Tue07/04/25 at 1051, Until Tue07/04/25 at 1107, Routine, For 5-6.9 L drained New Bag 07/04/2025 11:07 AM EDT 37.5 g Left Forearm albumin human 25 % infusion 87.5 g 87.5 g (rounded from 82.1 g = 1 g/kg 82.1 kg), Intravenous, Every 24 hours, 2 doses, First dose on Tue07/02/25 at 1230, Last dose on Tue07/03/25 at 1230, Routine New Bag 07/03/2025 1:15 PM EDT 87.5 g New Bag 07/02/2025 12:27 PM EDT 87.5 g benzonatate (Tessalon) capsule 100 mg 100 mg, Oral, 3 times daily PRN, Starting on Tue06/30/25 at 1823, Until Tue07/09/25 at 1519, Routine, cough bisacodyl (Dulcolax) suppository 10 mg 10 mg, Rectal, Daily PRN, Starting on Tue07/03/25 at 1957, Until Tue07/09/25 at 1519, Routine, constipation calcitriol (Rocaltrol) capsule 0.25 mcg 0.25 mcg, Oral, Daily, First dose on Tue06/26/25 at 0900, Until Discontinued, Routine Given 07/09/2025 8:57 AM EDT 0.25 mcg Given 07/08/2025 9:07 AM EDT 0.25 mcg Given 07/07/2025 8:45 AM EDT 0.25 mcg calcium carbonate (Tums) chewable tablet 750 mg 750 mg, Oral, Daily, First dose on Tue06/25/25 at 1940, Until Discontinued Given 07/09/2025 8:57 AM EDT 750 mg Given 07/08/2025 9:08 AM EDT 750 mg Given 07/07/2025 8:45 AM EDT 750 mg carboxymethylcellulose PF (Refresh Plus) 0.5 % ophthalmic solution 1 drop 1 drop, Both Eyes, As needed, Starting on Tue07/07/25 at 1228, Until Tue07/09/25 at 1519, Routine, dry eyes cetirizine (ZyrTEC) tablet 10 mg 10 mg, Oral, Daily, First dose on Tue06/26/25 at 0900, Until Discontinued, Routine Given 07/09/2025 8:57 AM EDT 10 mg Given 07/08/2025 9:07 AM EDT 10 mg Given 07/07/2025 8:45 AM EDT 10 mg cholecalciferol (Vitamin D-3) tablet 1,000 Units 1,000 Units, Oral, Daily, First dose on Tue06/25/25 at 1940, Until Discontinued, Routine Given 07/09/2025 8:57 AM EDT 1,000 Units Given 07/08/2025 9:08 AM EDT 1,000 Units Given 07/07/2025 8:45 AM EDT 1,000 Units ciprofloxacin (Cipro) tablet 500 mg 500 mg, Oral, Daily, First dose on Tue06/25/25 at 1940, Until Discontinued, Routine Given 07/09/2025 8:57 AM EDT 500 mg Given 07/08/2025 9:07 AM EDT 500 mg Given 07/07/2025 8:45 AM EDT 500 mg dextrose 10 % (D10W) bolus 125 mL 125 mL, Intravenous, Every 15 min PRN, Starting on Tue06/25/25 at 213, Until Tue07/09/25 at 151, Administer over 15 Minutes, Routine, low blood sugar BG 51-89 mg/dL dextrose 10 % (D10W) bolus 250 mL 250 mL, Intravenous, Every 15 min PRN, Starting on Tue06/25/25 at 213, Until Tue07/09/25 at 151, Administer over 15 Minutes, Routine, PRN low blood sugar BG =/<50 mg/dL glucagon (human recombinant) injection 1 mg 1 mg, Intramuscular, Every 15 min PRN, Starting on Tue06/25/25 at 213, Until Tue07/09/25 at 151, Routine, low blood sugar per Hypoglycemia Prevention and Treatment protocol glucose (Glutose) 40 % oral gel 15-30 grams of glucose 15-30 grams of glucose, Sublingual, Every 15 min PRN, Starting on Tue06/25/25 at 213, Until Tue07/09/25 at 151, Routine, low blood sugar, per Hypoglycemia Prevention and Treatment protocol heparin (porcine) injection 5,000 Units 5,000 Units, Subcutaneous, Every 12 hours, First dose (after last modification) on Tue06/27/25 at 2100, Until Discontinued, Routine, On hold since Tue07/03/2025 at 1127 until manually unheld Given 07/03/2025 9:34 AM EDT 5,000 Units Right Lower Abdomen Given 07/02/2025 9:10 PM EDT 5,000 Units R ight Lower Abdomen Given 07/02/2025 9:38 AM EDT 5,000 Units O ther heparin (porcine) injection 5,000 Units 5,000 Units, Subcutaneous, Every 12 hours, First dose (after last modification) on Tue07/05/25 at 0900, Until Discontinued, Routine Given 07/09/2025 8:57 AM EDT 5,000 Units Left Lower Abdomen Given 07/08/2025 8:26 PM EDT 5,000 Units L eft Lower Abdomen Given 07/08/2025 9:07 AM EDT 5,000 Units L eft Lower Abdomen insulin glargine-yfgn 100 UNIT/ML injection 24 Units 24 Units, Subcutaneous, Daily, First dose on Tue06/26/25 at 0900, Until Discontinued, Routine Given 07/09/2025 8:58 AM EDT 24 Units Left Lower Abdomen Given 07/08/2025 9:14 AM EDT 24 Units Le ft Lower Abdomen Given 07/07/2025 8:45 AM EDT 24 Units Le ft Lower Abdomen insulin lispro (Admelog) 100 units/mL injection - Correction - Resistant Dose 0-10 Units, Subcutaneous, 3 times daily with meals, First dose on Tue06/26/25 at 0830, Until Discontinued, Routine Given 07/08/2025 5:19 PM EDT 6 Units Left Lower Abdomen Given 07/08/2025 11:55 AM EDT 6 Units R ight Lower Abdomen Given 07/07/2025 5:13 PM EDT 6 Units Le ft Lower Abdomen insulin lispro (Admelog) injection - Correction - Nighttime Dose 0-3 Units, Subcutaneous, 2 times nightly (2100 & 0300), First dose on Tue06/25/25 at 2230, Until Discontinued, Routine lactulose (Chronulac) 10 GM/15ML solution 10 g 10 g, Oral, Once, 1 dose, On Tue07/08/25 at 1200, Routine Given 07/08/2025 11:55 AM EDT 10 g lactulose (Chronulac) 10 GM/15ML solution 20 g 20 g, Oral, 3 times daily, First dose on Tue06/25/25 at 2100, Until Discontinued, Routine Given 07/08/2025 9:08 AM EDT 20 g Given 07/07/2025 9:07 PM EDT 20 g Given 07/07/2025 5:12 PM EDT 20 g lactulose (Chronulac) 10 GM/15ML solution 30 g 30 g, Oral, 3 times daily, First dose (after last modification) on Tue07/08/25 at 1600, Until Discontinued, Routine Given 07/08/2025 8:25 PM EDT 30 g Given 07/08/2025 3:55 PM EDT 30 g lidocaine (Lidoderm) 5 % patch 1 patch 1 patch, Apply externally, Every 24 hours, First dose on Tue07/04/25 at 2145, Until Discontinued, Administer over 12 Hours, Routine Medication Applied 07/04/2025 8:58 PM EDT 1 patch Back lidocaine (Lidoderm) 5 % patch 1 patch 1 patch, Apply externally, Every 24 hours, 10 doses, First dose on Tue07/05/25 at 2200, Last dose on Tue07/14/25 at 2200, Administer over 12 Hours, Routine Medication Applied 07/08/2025 10:10 PM EDT 1 patch Other Medication Applied 07/07/2025 9:07 PM EDT 1 patch Other Medication Applied 07/06/2025 11:09 PM EDT 1 patch Back lidocaine (Xylocaine) 1 % injection Intradermal, As needed, Starting on Tue07/04/25 at 1043, Until Tue07/04/25 at 1043, Routine, Intraprocedure Given 07/04/2025 10:43 AM EDT 10 mL Back lidocaine 0.9% in sodium bicarbonate (buffered lidocaine) solution solution As needed, Starting on Tue06/27/25 at 0914, Until Tue06/27/25 at 0947, Routine, Intraprocedure Given 06/27/2025 9:47 AM EDT 10 mL Given 06/27/2025 9:14 AM EDT 10 mL lidocaine 1% in sodium bicarbonate (buffered lidocaine)10 mL 10 mL, Infiltration, Once, 1 dose, On Sarahi 07/04/25 at 0945, Routine, Holding - Preprocedure Given by Other 07/04/2025 10:02 AM EDT 10 mL Left Lower Abdomen magnesium oxide (Mag-Ox) tablet 400 mg 400 mg, Oral, Daily, First dose on Tue06/25/25 at 2100, Until Discontinued, Routine Given 07/08/2025 8:25 PM EDT 400 mg Given 07/07/2025 9:07 PM EDT 400 mg Given 07/06/2025 8:21 PM EDT 400 mg magnesium oxide (Mag-Ox) tablet 400 mg 400 mg, Oral, Once, 1 dose, On Tue07/04/25 at 0645, Routine Given 07/04/2025 6:50 AM EDT 400 mg magnesium oxide (Mag-Ox) tablet 400 mg 400 mg, Oral, Once, 1 dose, On Tue07/05/25 at 0545, Routine Given 07/05/2025 5:43 AM EDT 400 mg magnesium sulfate IVPB 2 g 2 g, Intravenous, Once, 1 dose, On Sarahi 06/27/25 at 1700, Routine New Bag 06/27/2025 5:02 PM EDT 2 g 25 mL/hr magnesium sulfate IVPB 2 g 2 g, Intravenous, Once, 1 dose, On Tue06/30/25 at 1215, Routine New Bag 06/30/2025 12:12 PM EDT 2 g 2 5 mL/hr magnesium sulfate IVPB 2 g 2 g, Intravenous, Once, 1 dose, On Tue07/06/25 at 0600, Routine New Bag 07/06/2025 6:03 AM EDT 2 g 25 mL/hr melatonin tablet 3 mg 3 mg, Oral, Once, 1 dose, On Tue07/08/25 at 0000, Routine Given 07/08/2025 12:04 AM EDT 3 mg melatonin tablet 3 mg 3 mg, Oral, Nightly PRN, Starting on Tue07/08/25 at 1659, Until Tue07/09/25 at 1519, Routine, sleep Given 07/08/2025 8:25 PM EDT 3 mg midodrine (Proamatine) tablet 10 mg 10 mg, Oral, 3 times daily, First dose (after last modification) on Tue06/26/25 at 1600, Until Discontinued Given 07/02/2025 9:32 AM EDT 10 mg Given 07/01/2025 8:56 PM EDT 10 mg Given 07/01/2025 4:51 PM EDT 10 mg midodrine (Proamatine) tablet 15 mg 15 mg, Oral, 3 times daily, First dose (after last modification) on Tue07/02/25 at 1600, Until Discontinued Given 07/09/2025 8:57 AM EDT 15 mg Given 07/08/2025 8:25 PM EDT 15 mg Given 07/08/2025 3:55 PM EDT 15 mg midodrine (Proamatine) tablet 20 mg 20 mg, Oral, 3 times daily, First dose on Tue06/25/25 at 2100, Until Discontinued Given 06/26/2025 9:15 AM EDT 20 mg Given 06/25/2025 8:40 PM EDT 20 mg polyethylene glycol (Miralax) packet 17 g 17 g, Oral, 2 times daily, First dose on Tue07/07/25 at 2100, Until Discontinued, Routine potassium chloride (Klor-Con) packet 20 mEq 20 mEq, Oral, Once, 1 dose, On Tue06/30/25 at 1330, Routine Given 06/30/2025 1:34 PM EDT 20 mEq potassium chloride (Klor-Con) packet 40 mEq 40 mEq, Oral, Once, 1 dose, On Tue06/30/25 at 1215, Routine Given 06/30/2025 12:10 PM EDT 40 mEq prochlorperazine (Compazine) tablet 5 mg 5 mg, Oral, Every 6 hours PRN, Starting on Tue07/03/25 at 1324, Until Tue07/09/25 at 1519, Routine, nausea, vomiting Given 07/03/2025 1:30 PM EDT 5 mg promethazine (Phenergan) tablet 25 mg 25 mg, Oral, Once, 1 dose, On Tue07/01/25 at 0600, Routine Given 07/01/2025 5:15 AM EDT 25 mg rifAXIMin (Xifaxan) tablet 550 mg 550 mg, Oral, 2 times daily, First dose on Tue06/25/25 at 2100, Until Discontinued, Routine Given 07/09/2025 8:57 AM EDT 550 mg Given 07/08/2025 8:25 PM EDT 550 mg Given 07/08/2025 9:08 AM EDT 550 mg senna (Senokot) tablet 8.6 mg 8.6 mg, Oral, Nightly, First dose on Tue07/07/25 at 2100, Until Discontinued, Routine Given 07/08/2025 8:25 PM EDT 8.6 mg Given 07/07/2025 9:07 PM EDT 8.6 mg simethicone (Mylicon) chewable tablet 80 mg 80 mg, Oral, Once, 1 dose, On Tue07/03/25 at 1915, Routine Given 07/03/2025 7:03 PM EDT 80 mg sodium bicarbonate 8.4 % injection As needed, Starting on Tue07/04/25 at 1043, Until Tue07/04/25 at 1043, Routine, Intraprocedure Given 07/04/2025 10:43 AM EDT 1 mEq sodium chloride 0.9 % flush 10 mL 10 mL, Intravenous, Every 12 hours, First dose on Tue06/25/25 at 1940, Until Discontinued, Routine Given 07/09/2025 6:54 AM EDT 10 mL Given 07/08/2025 8:27 PM EDT 10 mL Given 07/08/2025 9:08 AM EDT 10 mL sodium chloride 0.9 % flush 10 mL 10 mL, Intravenous, As needed, Starting on Tue06/25/25 at 1930, Until Tue07/09/25 at 1519, Routine, line care sodium chloride 0.9 % flush 10 mL 10 mL, Intravenous, Every 12 hours, First dose on Tue06/26/25 at 1215, Until Discontinued, Routine, On Unit - Preprocedure Given 07/09/2025 12: 53 AM EDT 10 mL Given 07/08/2025 11:57 AM EDT 10 mL Given 07/08/2025 12:06 AM EDT 10 mL sodium chloride 0.9 % flush 10 mL 10 mL, Intravenous, As needed, Starting on Tue06/26/25 at 1129, Until Tue07/09/25 at 1519, Routine, On Unit - Preprocedure, line care sodium chloride 0.9 % flush 10 mL 10 mL, Intravenous, Every 12 hours, First dose on Tue07/04/25 at 0945, Until Discontinued, Routine, Holding - Preprocedure Given 07/09/2025 8:59 AM EDT 10 mL Given 07/08/2025 10:09 PM EDT 10 mL Given 07/08/2025 9:09 AM EDT 10 mL sodium chloride 0.9 % flush 10 mL 10 mL, Intravenous, As needed, Starting on Tue07/04/25 at 0850, Until Tue07/09/25 at 1519, Routine, Holding - Preprocedure, line care documented in this encounter Active and Recently Administered Medications Times are shown in EDT. Scheduled Medication Order 07/07/2025 07/08/2025 07/09/2025 calcitriol (Rocaltrol) capsule 0.25 mcg 0.25 mcg, Oral, Daily, First dose on Tue06/26/25 at 0900, Until Discontinued, Routine 0845 (Given - Provider: Mariam Gonzalez RN) 0907 (Given - Provider: Mariam Gonzalez RN) 0857 (Given - Provider: Mariam Gonzalez RN) calcium carbonate (Tums) chewable tablet 750 mg 750 mg, Oral, Daily, First dose on Tue06/25/25 at 1940, Until Discontinued 0845 (Given - Provider: Mariam Gonzalez RN) 0908 (Given - Provider: Mariam Gonzalez RN) 0857 (Given - Provider: Mariam Gonzalez RN) cetirizine (ZyrTEC) tablet 10 mg 10 mg, Oral, Daily, First dose on Tue06/26/25 at 0900, Until Discontinued, Routine 0845 (Given - Provider: Mariam Gonzaelz RN) 0907 (Given - Provider: Mariam Gonzalez RN) 0857 (Given - Provider: Mariam Gonzalez RN) cholecalciferol (Vitamin D-3) tablet 1,000 Units 1,000 Units, Oral, Daily, First dose on Tue06/25/25 at 1940, Until Discontinued, Routine 0845 (Given - Provider: Mariam Gonzalez RN) 0908 (Given - Provider: Mariam Gonzalez RN) 0857 (Given - Provider: Mariam Gonzalez RN) ciprofloxacin (Cipro) tablet 500 mg 500 mg, Oral, Daily, First dose on Tue06/25/25 at 1940, Until Discontinued, Routine 0845 (Given - Provider: Mariam Gonzalez RN) 0907 (Given - Provider: Mariam Gonzalez RN) 0857 (Given - Provider: Mariam Gonzalez RN) heparin (porcine) injection 5,000 Units 5,000 Units, Subcutaneous, Every 12 hours, First dose (after last modification) on Tue07/05/25 at 0900, Until Discontinued, Routine 0845 (Given - Provider: Mariam Gonzalez RN)2115 (Given - Provider: Felecia Khanna) 0907 (Given - Provider: Mariam Gonzalez RN)202 (Given - Provider: Felecia Khanna) 0857 (Given - Provider: Mariam Gonzalez RN) hydrOXYzine HCl (Atarax) tablet 12.5 mg 12.5 mg, Oral, Once, 1 dose, On Tue07/08/25 at 2315, Routine 0256 (Not Given - Provider: Felecia Khanna - Reason: See Provider Order) insulin glargine-yfgn 100 UNIT/ML injection 24 Units 24 Units, Subcutaneous, Daily, First dose on Tue06/26/25 at 0900, Until Discontinued, Routine 0845 (Given - Provider: Mariam Gonzalez RN) 0914 (Given - Provider: Mariam Gonzalez RN) 0858 (Given - Provider: Mariam Gonzalez RN) insulin lispro (Admelog) 100 units/mL injection - Correction - Resistant Dose 0-10 Units, Subcutaneous, 3 times daily with meals, First dose on Tue06/26/25 at 0830, Until Discontinued, Routine 0824 (Not Given - Provider: Mariam Gonzalez RN - Reason: Order parameters not met)1205 (Given - Provider: Mariam Gonzalez RN)1713 (Given - Provider: Mariam Gonzalez RN) 0908 (Not Given - Provider: Mariam Gonzalez RN - Reason: Order parameters not met)1155 (Given - Provider: Mariam Gonzalez RN)1719 (Given - Provider: Mariam Gonzalez RN) 0858 (Not Given - Provider: Mariam Gonzalez RN - Reason: Order parameters not met)1230 (Canceled Entry - Provider: Automatic Discharge Provider - Comment: Automatically canceled at discontinue of medication order) insulin lispro (Admelog) injection - Correction - Nighttime Dose 0-3 Units, Subcutaneous, 2 times nightly (2100 & 0300), First dose on Tue06/25/25 at 2230, Until Discontinued, Routine 0207 (Not Given - Provider: Rochelle Xiong LPN - Reason: Order parameters not met)2133 (Not Given - Provider: Felecia Khanna - Reason: See Provider Order) 030 (Not Given - Provider: Felecia Khanna - Reason: See Provider Order)2039 (Not Given - Provider: Felecia Khanna - Reason: See Provider Order) 025 (Not Given - Provider: Felecia Khanna - Reason: See Provider Order) lactulose (Chronulac) 10 GM/15ML solution 10 g (COMPLETED) 10 g, Oral, Once, 1 dose, On Tue07/08/25 at 1200, Routine 1155 (Given - Provider: Mariam Gonzalez RN) lactulose (Chronulac) 10 GM/15ML solution 20 g (CANCELED) 20 g, Oral, 3 times daily, First dose on Tue06/25/25 at 2100, Until Discontinued, Routine 0846 (Given - Provider: Mariam Gonzalez RN)1712 (Given - Provider: Mariam Gonzalez RN)2106 (Given - Provider: Fleecia Khanna) 0908 (Given - Provider: Mariam Gonzalez RN) lactulose (Chronulac) 10 GM/15ML solution 30 g 30 g, Oral, 3 times daily, First dose (after last modification) on Tue07/08/25 at 1600, Until Discontinued, Routine 1555 (Given - Provider: Mariam Gonzalez RN)2024 (Given - Provider: Felecia Khanna) 0857 (Not Given - Provider: Mariam Gonzalez RN - Reason: Hold for condition: must add comment - Comment: pt leaving at 1; does not want to have BM) lidocaine (Lidoderm) 5 % patch 1 patch 1 patch, Apply externally, Every 24 hours, 10 doses, First dose on Tue07/05/25 at 2200, Last dose on Tue07/14/25 at 2200, Administer over 12 Hours, Routine 1156 (Medication Removed - Provider: Mariam Gonzalez RN)2106 (Medication Applied - Provider: Felecia Khanna) 0908 (Medication Removed - Provider: Mariam Gonzalez RN)2209 (Medication Applied - Provider: Felecia Khanna) 0915 (Medication Removed - Provider: Mariam Gonzalez RN) magnesium oxide (Mag-Ox) tablet 400 mg 400 mg, Oral, Daily, First dose on Tue06/25/25 at 2100, Until Discontinued, Routine 2106 (Given - Provider: Felecia Khanna) 2024 (Given - Provider: Felecia Khanna) melatonin tablet 3 mg (COMPLETED) 3 mg, Oral, Once, 1 dose, On Tue07/08/25 at 0000, Routine 0004 (Given - Provider: Felecia Khanna) midodrine (Proamatine) tablet 15 mg 15 mg, Oral, 3 times daily, First dose (after last modification) on Tue07/02/25 at 1600, Until Discontinued 0845 (Given - Provider: Mariam Gonzalez RN)1712 (Given - Provider: Mariam Gonzalez RN)2106 (Given - Provider: Felecia Khanna) 0907 (Given - Provider: Mariam Gonzalez RN)1555 (Given - Provider: Mariam Gonzalez RN)2024 (Given - Provider: Felecia Khanna) 0857 (Given - Provider: Mariam Gonzalez RN) polyethylene glycol (Miralax) packet 17 g 17 g, Oral, 2 times daily, First dose on Tue07/07/25 at 2100, Until Discontinued, Routine 2115 (Not Given - Provider: Felecia Khanna - Reason: Patient/family refused) 0907 (Not Given - Provider: Mariam Gonzalez RN - Reason: Patient/family refused)2038 (Not Given - Provider: Felecia Khanna - Reason: Patient/family refused) 0857 (Not Given - Provider: Mariam Gonzalez RN - Reason: Patient/family refused) rifAXIMin (Xifaxan) tablet 550 mg 550 mg, Oral, 2 times daily, First dose on Tue06/25/25 at 2100, Until Discontinued, Routine 0845 (Given - Provider: Mariam Gonzalez RN)2106 (Given - Provider: Felecia Khanna) 0908 (Given - Provider: Mariam Gonzalez RN)2025 (Given - Provider: Felecia Khanna) 0857 (Given - Provider: Mariam Gonzalez RN) senna (Senokot) tablet 8.6 mg 8.6 mg, Oral, Nightly, First dose on Tue07/07/25 at 2100, Until Discontinued, Routine 2106 (Given - Provider: Felecia Khanna) 2024 (Given - Provider: Felecia Khanna) sodium chloride 0.9 % flush 10 mL(Linked Group 1) 10 mL, Intravenous, Every 12 hours, First dose on Tue06/25/25 at 1940, Until Discontinued, Routine 09 (Given - Provider: Mariam Gonzalez RN)2108 (Given - Provider: Fleecia Khanna) 09 (Given - Provider: Mariam Gonzalez RN)2026 (Given - Provider: Felecia Khanna) 0654 (Given - Provider: Felecia Khanna) sodium chloride 0.9 % flush 10 mL(Linked Group 2) 10 mL, Intravenous, Every 12 hours, First dose on Tue06/26/25 at 1215, Until Discontinued, Routine, On Unit - Preprocedure 0013 (Canceled Entry - Provider: Rochelle Xiong LPN)1156 (Given - Provider: Mariam Gonzalez RN) 0006 (Given - Provider: Felecia Khanna)1157 (Given - Provider: Mariam Gonzalez RN) 0053 (Given - Provider: Felecia Khanna)1140 (Canceled Entry - Provider: Mariam Gonzalez RN) sodium chloride 0.9 % flush 10 mL(Linked Group 3) 10 mL, Intravenous, Every 12 hours, First dose on Tue07/04/25 at 0945, Until Discontinued, Routine, Holding - Preprocedure 0919 (Given - Provider: Mariam Gonzalez RN)2106 (Given - Provider: Felecia Khanna) 09 (Given - Provider: Mariam Gonzalez RN)220 (Given - Provider: Felecia Khanna) 0859 (Given - Provider: Mariam Gonzalez RN) PRN Medication Order 07/07/2025 07/08/2025 07/09/2025 albumin human 25 % infusion 12.5 g 12.5 g, Intravenous, Every 15 min PRN, 5 doses, Starting on Sarahi 06/27/25 at 1007, Until Tue07/09/25 at 151, Routine, Give additional 12.5 g doses per albumin replacement chart albumin human 25 % infusion 12.5 g 12.5 g, Intravenous, Every 15 min PRN, 5 doses, Starting on Sarahi 07/04/25 at 1051, Until Tue07/09/25 at 151, Routine, Give additional 12.5 g doses per albumin replacement chart benzonatate (Tessalon) capsule 100 mg 100 mg, Oral, 3 times daily PRN, Starting on Tue06/30/25 at 1823, Until Tue07/09/25 at 151, Routine, cough bisacodyl (Dulcolax) suppository 10 mg 10 mg, Rectal, Daily PRN, Starting on Tue07/03/25 at 1957, Until Tue07/09/25 at 151, Routine, constipation capsaicin (Zostrix) 0.025 % cream Topical, 2 times daily PRN, Starting on Tue06/25/25 at 1934, Until Tue07/09/25 at 151, Routine, mild pain carboxymethylcellulose PF (Refresh Plus) 0.5 % ophthalmic solution 1 drop 1 drop, Both Eyes, As needed, Starting on Tue07/07/25 at 1228, Until Tue07/09/25 at 151, Routine, dry eyes 2108 (Not Given - Provider: Felecia Khanna - Reason: Patient/family refused) dextrose 10 % (D10W) bolus 125 mL(Linked Group 4) 125 mL, Intravenous, Every 15 min PRN, Starting on Tue06/25/25 at 2136, Until Tue07/09/25 at 1519, Administer over 15 Minutes, Routine, low blood sugar BG 51-89 mg/dL dextrose 10 % (D10W) bolus 250 mL(Linked Group 4) 250 mL, Intravenous, Every 15 min PRN, Starting on Tue06/25/25 at 2136, Until Tue07/09/25 at 1519, Administer over 15 Minutes, Routine, PRN low blood sugar BG =/<50 mg/dL glucagon (human recombinant) injection 1 mg(Linked Group 4) 1 mg, Intramuscular, Every 15 min PRN, Starting on Tue06/25/25 at 2136, Until Tue07/09/25 at 1519, Routine, low blood sugar per Hypoglycemia Prevention and Treatment protocol glucose (Glutose) 40 % oral gel 15-30 grams of glucose(Linked Group 4) 15-30 grams of glucose, Sublingual, Every 15 min PRN, Starting on Tue06/25/25 at 2136, Until Tue07/09/25 at 1519, Routine, low blood sugar, per Hypoglycemia Prevention and Treatment protocol melatonin tablet 3 mg 3 mg, Oral, Nightly PRN, Starting on Tue07/08/25 at 1659, Until Tue07/09/25 at 1519, Routine, sleep 2024 (Given - Provider: Felecia Khanna) prochlorperazine (Compazine) tablet 5 mg 5 mg, Oral, Every 6 hours PRN, Starting on Tue07/03/25 at 1324, Until Tue07/09/25 at 151, Routine, nausea, vomiting sodium chloride 0.9 % flush 10 mL(Linked Group 1) 10 mL, Intravenous, As needed, Starting on Tue06/25/25 at 1930, Until Tue07/09/25 at 1519, Routine, line care sodium chloride 0.9 % flush 10 mL(Linked Group 2) 10 mL, Intravenous, As needed, Starting on Tue06/26/25 at 1129, Until Tue07/09/25 at 1519, Routine, On Unit - Preprocedure, line care sodium chloride 0.9 % flush 10 mL(Linked Group 3) 10 mL, Intravenous, As needed, Starting on Tue07/04/25 at 0850, Until Tue07/09/25 at 1519, Routine, Holding - Preprocedure, line care Linked Groups Order Group 1: Insert peripheral IV (COMPLETED) Once, On Tue06/25/25 at 193, For 1 occurrence And Saline lock IV (COMPLETED) Once, On Tue06/25/25 at 193, For 1 occurrence And sodium chloride 0.9 % flush 10 mLJump to med 10 mL, Intravenous, Every 12 hours, First dose on Tue06/25/25 at 1940, Until Discontinued, Routine And sodium chloride 0.9 % flush 10 mLJump to med 10 mL, Intravenous, As needed, Starting on Tue06/25/25 at 1930, Until Tue07/09/25 at 1519, Routine, line care Group 2: Insert peripheral IV (CANCELED) Once, On Tue06/26/25 at 1130, For 1 occurrence, On Unit - Preprocedure And Saline lock IV (CANCELED) Once, On Tue06/26/25 at 1130, For 1 occurrence, On Unit - Preprocedure And sodium chloride 0.9 % flush 10 mLJump to med 10 mL, Intravenous, Every 12 hours, First dose on Tue06/26/25 at 1215, Until Discontinued, Routine, On Unit - Preprocedure And sodium chloride 0.9 % flush 10 mLJump to med 10 mL, Intravenous, As needed, Starting on Tue06/26/25 at 1129, Until Tue07/09/25 at 1519, Routine, On Unit - Preprocedure, line care Group 3: Insert peripheral IV (CANCELED) Once, On Tue07/04/25 at 0851, For 1 occurrence, Holding - Preprocedure And Saline lock IV (CANCELED) Once, On Tue07/04/25 at 0851, For 1 occurrence, Holding - Preprocedure And sodium chloride 0.9 % flush 10 mLJump to med 10 mL, Intravenous, Every 12 hours, First dose on Tue07/04/25 at 0945, Until Discontinued, Routine, Holding - Preprocedure And sodium chloride 0.9 % flush 10 mLJump to med 10 mL, Intravenous, As needed, Starting on Tue07/04/25 at 0850, Until Tue07/09/25 at 1519, Routine, Holding - Preprocedure, line care Group 4: glucose (Glutose) 40 % oral gel 15-30 grams of glucoseJump to med 15-30 grams of glucose, Sublingual, Every 15 min PRN, Starting on Tue06/25/25 at 2136, Until Tue07/09/25 at 1519, Routine, low blood sugar, per Hypoglycemia Prevention and Treatment protocol Or dextrose 10 % (D10W) bolus 125 mLJump to med 125 mL, Intravenous, Every 15 min PRN, Starting on Tue06/25/25 at 2136, Until Tue07/09/25 at 1519, Administer over 15 Minutes, Routine, low blood sugar BG 51-89 mg/dL Or dextrose 10 % (D10W) bolus 250 mLJump to med 250 mL, Intravenous, Every 15 min PRN, Starting on Tue06/25/25 at 2136, Until Tue07/09/25 at 1519, Administer over 15 Minutes, Routine, PRN low blood sugar BG =/<50 mg/dL Or glucagon (human recombinant) injection 1 mgJump to med 1 mg, Intramuscular, Every 15 min PRN, Starting on Tue06/25/25 at 2136, Until Tue07/09/25 at 151, Routine, low blood sugar per Hypoglycemia Prevention and Treatment protocol documented in this encounter Additional Health Concerns Assessment Noted Time PHQ-9 Depression Total Score: 6 06/11/20 10:59 AM EDT A fall risk assessment has been complete d for the patient 06/25/2025 12:59 PM EDT A Body Mass Index follow-up plan has been documented for the patient 07/09/2025 10:39 AM EDT documented as of this encounter Care Teams Pumper Gauger Apprentice Relationship Specialty Start Date End Date Alvarez Ordaz MD [address] [place] [address] PCP - General Family Medicine 12/07/24 Lea Fernando [address] [place] [address] Antichecking Iron Worker Endocrinology 08/29/24 Rachel Ray, BRAND SPECIALIST [address] [place] [address] Nurse Practitioner Gastroenterology 09/24/24 Tamera Isabel LPN VALUE-BASED TRANSFORMATION PROGRAM Licensed Practical Nurse 05/29/25 Alina Lovett, RN [facility] INTERVENTIONAL RADIOLOGY Registered Nurse 06/26/25 06/26/25 documented as of this encounter
--- OUTSIDE RECORDS SUMMARY | 2025-07-11 09:01 | XMS_ITS | Encounter Summary ---
Author Organization [facility] Address [address] [place] [address] Care Team Providers Care Downstream Biomanufacturing Technician Name Role Phone Lea Fernando Unavailable [phone] Rachel Ray APRN Unavailable [phone] Alvarez Zimmer MD Primary Care Provider [phone] Tamera Isabel LEAD MOBILE DEVELOPER Unavailable Unavailabl Monique Garay LEAD MOBILE DEVELOPER Unavailable Unavailable Reason for Referral * Clinic-Administered Medication (Routine) - Closed Specialty Diagnoses / Procedures Referred By Contherbert t Referred To Contact Diagnoses Other ascites Procedures [place] ABDOM PARACENTESIS DX/THER W IMAGING GUIDANCE Micheal Glasgow APRN, DNP [address] [place] [address] Phone: tel: fax: [facility] [address] [place] [address] Phone: tel: fax: Referral ID Status Reason Start Date Expiration Date Visits Re quested Visits Authorized [id number] Closed 07/11/2025 01/10/2027 1 1 * Imaging (Routine) - Closed Specialty Diagnoses / Procedures Referred By Contac t Referred To Contact Radiology Diagnoses Shortness of breath Pleural effusion Procedures US Guided Thoracentesis Marianna Gordon APRN [address] [place] [address] Phone: tel: fax: Referral ID Status Reason Start Date Expiration Date Visits Re quested Visits Authorized [id number] Closed 06/14/2025 12/14/2026 1 1 Reason for Visit * Imaging (Routine) - Closed Specialty Diagnoses / Procedures Referred By Eder zhu Referred To Contact Radiology Diagnoses Shortness of breath Pleural effusion Procedures US Guided Thoracentesis Marianna Gordon APRN [address] [place] [address] Phone: tel: fax: Referral ID Status Reason Start Date Expiration Date Visits Re quested Visits Authorized [id number] Closed 06/14/2025 12/14/2026 1 1 Encounter Details Date Type Department Care Team (Latest Contact Info) Description 07/11/2025 9:01 AM EDT - 07/11/2025 12:09 PM EDT Hospital Encounter [facility] Interventional Radiology [address] [place] [address] Stacy Houston RN EMERGENCY SERVICES Shortness of [...] How often do you attend [facility] or gnosticist services? Patient unable to answer 01/10/2025 Do you belong to any clubs o r organizations such as jewish groups, unions, fraternal or athletic groups, or [...] any clubs o r organizations such as jewish groups, unions, fraternal or athletic groups, or [...] more drinks on one occasion? Never 06/25/2025 [facility] of Occupat ional [...] living in a penitentiary (including now)? No 06/26/2025 CAGE ASSESSMENT Answer [...] first t kennedy in the morning (EYE-PRODUCTION TECHNOLOGIST) to steady your nerves or to get rid of a hangover? 0 06/25/2025 CAGE Questionnaire Score 0 025 Utilities Answer Date Recorded In the past 12 months has [employer], gas, oil, or water [employer] threatened to shut off services in your [...] call: Vascular & Interventional Radiology Clinic at [phone] Tuesday - Tuesday 8:00 AM to 4:30 PM After hours, weekends, and holidays please call [phone] and ask for the Interventional Radiology provider/Resident on-call For Emergencies please go to the nearest Emergency Room or dial 911. Intervention Radiology Appointments: If you need to reschedule a procedure, please call our Schedulers at [phone], option 4. If you need to schedule or reschedule a clinic appointment, please call [phone]. [facility] Vascular and Interventional Radiology Clinic [facility] [address] [place] [address] documented in this encounter Medications at Time [...] 1 03/01/2025 ergocalciferol (Vitamin D-2) 1.25 MG (56706 UT) capsuleIndication s:Vitamin D deficiency Take 1 [...] from the original note were not included. [id number] Discharge Instructions for Paracentesis Paracentesis is a [...] fainting. Last Reviewed Date: 2025 00:00:00 ?? 4557-2769 The [employer]. All rights reserved. This information is not intended as a substitute for professional medical care. Always follow your healthcare professional's instructions. * John ZendejasTHEO - Stacy Houston RN - 07/11/2025 12:44 PM EDT Images from the original note were not included. 74834 Discharge Instructions for Thoracentesis Thoracentesis is a [...] blood. Last Reviewed Date: 2025 00:00:00 ?? 9474-5476 [employer]. All rights reserved. This information is not [...] - Any questions with scheduling please call [phone] - Please place orders for desired fluid studies to be sent for analysis prior to procedure Thank you for allowing us to participate in the care of this patient. Micheal Glasgow APRN, DNP Interventional Radiology [phone] [1] Past Medical History: Diagnosis Date ADHD (attention deficit hyperactivity disorder) Allergic Anxiety disorder, unspecified Anxiety Bleeding gums Blood in urine Cataract Chronic kidney disease Cirrhosis (CMS/HCC) Colon cancer screening 09/20/2019 Added automatically from request for surgery [id number] Coronary artery disease Depression 1995 Diabetes mellitus [...] 1979 BLADDER SURGERY N/A Bladder surgery from [facility] BREAST BIOPSY 2011 BREAST SURGERY 2010 BUNIONECTOMY Right CATARACT EXTRACTION Bilateral 2016 CHOLECYSTECTOMY 1979 ESOPHAGOGASTRODUODENOSCOPY HYSTERECTOMY N/A Hysterectomy from [facility] KNEE SURGERY Bilateral ORAL SURGERY N/A Oral surgery from [facility] OTHER SURGICAL HISTORY 2015 ROOT CANAL WISDOM TOOTH EXTRACTION [3] Social History Tobacco Use Smoking status: Never Passive exposure: Never Smokeless tobacco: Never Vaping Use Vaping status: Never Used Substance Use Topics Alcohol use: Not Currently Drug use: Never [4] No Known Allergies [5] Current Facility-Administered Medications: albumin human 25 % infusion 12.5 g, 12.5 g, Intravenous, q15 min PRN, Marianna Gordon N, VALIDATION LEADER albumin human 25 % infusion 87.5 g, [...] 1 mg, Intramuscular, q15 min PRN, Blayne Zimmer, heparin (porcine) injection 5,000 Units, 5,000 Units, Subcutaneous, q12h, Irvin Ball MD, 5,000 Units at 07/03/25 0934 insulin glargine-yfgn 100 UNIT/ML injection 24 Units, 24 Units, Subcutaneous, Daily, Blayne Zimmer DO, 24 Units at 07/03/25 0936 insulin lispro (Admelog) 100 units/mL injection - Correction - Resistant Dose, 0-10 Units, Subcutaneous, TID with meals, Blayne Zimmer, , 2 Units at 07/02/25 1226 insulin lispro [...] Intravenous, PRN, Maria Dolores Ontiveros APRN, DNP documented in this encounter Plan of Treatment Upcoming Encounters Date Type Department Care Team (Late st Contact Info) Description 08/01/2025 10:00 AM EDT Appointment [facility] Interventional Radiology [address] [place] [address] 08/01/2025 11:00 AM EDT Appointment [facility] Interventional Radiology [address] [place] [address] 08/08/2025 11:15 AM EDT Appointment [facility] Interventional Radiology [address] [place] [address] 08/08/2025 12:15 PM EDT Appointment [facility] Interventional Radiology [address] [place] [address] 2025 10:00 AM EDT Appointment [facility] Interventional Radiology [address] [place] [address] 2025 11:00 AM EDT Appointment [facility] Interventional Radiology [address] [place] [address] 08/20/2025 9:30 AM EDT Clinical Support [facility] [place] [address] [place] [address] 08/20/2025 10:30 AM EDT Social Work [facility] [place] [address] [place] [address] [place] [address] 08/20/2025 11:00 AM EDT Office Visit [facility] [place] [address] [place] [address] Jude Duque MD [address] [place] [address] documented as of this encounter Procedures Procedure [...] MD on 07/11/2025 12:36 PM us Micheal E Pee VALIDATION LEADER, DNP IMG XR PROCEDURES Tari l Result [...] by ascites and intermittent hepatic hydrothorax TECHNIQUE: Cardiology Physician: VALIDATION LEADER Micheal Pee Procedure: Limited abdominal ultrasound COMPARISON: None. FINDINGS: Small volume RLQ ascites. No ascites present in LLQ, LUQ, RUQ. Paracentesis not completed COMPLICATION: No. Procedure Note Dina Rose MD - 07/11/2025 CLINICAL INDICATION: Gabi Zimmer is a 64 y.o. 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 FINDINGS: [...] Dina Rose MD on 07/11/2025 4:21 PM Marianna Gordon ADRI IMG US PROCEDURES Final [...] by ascites and intermittent hepatic hydrothorax TECHNIQUE: Cardiology Physician: ADRI Glasgow Secondary Flat Polisher: None. Rad Dose: NA Medications: Continuous physiologic [...] complicated by ascites and intermittenthepatic hydrothorax TECHNIQUE: Cardiology Physician: ADRI Glasgow Secondary Flat Polisher: None. Rad Dose: NA Medications: Continuous physiologic monitoring provided by a qualifiedhealthcare professional. Administered: 1% Lidocaine SQ. Antibiotics: NA Time out: 6 Procedure: After discussion of risks and benefits, [...] Dina Rose MD on 07/11/2025 4:04 PM Marianna Gordon VALIDATION LEADER IMG US PROCEDURES Final Resu lt documented [...] documented as of this encounter Care Teams Downstream Biomanufacturing Technician Relationship Specialty Start Date End Date Alvarez Zimmer MD [address] [place] [address] PCP - General Family Medicine 12/07/24 Lea Fernando [address] [phone] Database Programmer Analyst Endocrinology 08/29/24 Rachel Ray APRN [address] [place] [address] Nurse Practitioner Gastroenterology 09/24/24 Tamera Isabel LPN VALUE-BASED TRANSFORMATION PROGRAM Licensed Practical Nurse 05/29/25 Monique Tapia LPN VALUE[employer] [address] TCM Nurse 07/10/25 documented as of this encounter
--- OUTSIDE RECORDS SUMMARY | 2025-07-11 12:10 | XMS_ITS | Encounter Summary ---
Author Organization [facility] Address [address] [place] [address] Care Team Providers Care Process Description Writer Name Role Phone Lea Fernando Unavailable [phone] Rachel Ray RIDE ASSEMBLY SUPERVISOR Unavailable [phone] Alvarez Zimmer MD Primary Care Provider [phone] Tamera Isabel ENVIRONMENTAL ISSUES INSTRUCTOR Unavailable Unavailabl Monique Garay ENVIRONMENTAL ISSUES INSTRUCTOR Unavailable Unavailable Encounter Details Date Type Department Care Team (Latest Contact Info) Description 07/11/2025 12:10 PM EDT - 07/11/2025 11:59 PM EDT Hospital Encounter [facility] H Radiology [address] [place] [address] Discharge Disposition: Home or Self Care Social [...] do you attend [facility] or holiness services? Patient unable to answer 01/10/2025 Do you belong to any clubs o r organizations such as worship groups, unions, [employer] or athletic groups, or school groups? Patient [...] more drinks on one occasion? Never 06/25/2025 [facility] - Occupational Stress Questionnaire Answer Date Recorded [...] max number of drinks Not on file 08/05/ 2025 Cage Beverages a week Not on file 06/25/2025 Have you ever felt you should CUT down on your d rinking? 0 06/25/2025 Have you been ANNOYED by people criticizing your drinking? 0 06/25/2025 Have you felt GUILTY about your drinking? 0 06/25/2025 Have you had a drink first t kennedy in the morning (EYE-SUPERVISOR FISHING) to steady your nerves or to get rid of a hangover? 0 06/25/2025 CAGE Questionnaire Score 0 025 Utilities Answer Date Recorded In the past 12 months has th e [employer], gas, oil, or water [employer] threatened to shut off services in your [...] 1 03/01/2025 ergocalciferol (Vitamin D-2) 1.25 MG (64297 UT) capsuleIndication s:Vitamin D deficiency Take 1 [...] 07/09/2025 5 documented as of this encounter Plan of Treatment Upcoming Encounters Date Type Department Care Team (Late st Contact Info) Description 08/01/2025 10:00 AM EDT Appointment [facility] Interventional Radiology [address] [place] [address] 08/01/2025 11:00 AM EDT Appointment [facility] Interventional Radiology [address] [place] [address] 08/08/2025 11:15 AM EDT Appointment [facility] Interventional Radiology [address] [place] [address] 08/08/2025 12:15 PM EDT Appointment [facility] Interventional Radiology [address] [place] [address] 2025 10:00 AM EDT Appointment [facility] Interventional Radiology [address] [place] [address] 2025 11:00 AM EDT Appointment [facility] Interventional Radiology [address] [place] [address] 08/20/2025 9:30 AM EDT Clinical Support [facility] [place] [address] [place] [address] 08/20/2025 10:30 AM EDT Social Work [facility] [place] [address] [place] [address] [place] [address] 08/20/2025 11:00 AM EDT Office Visit [facility] [place] [address] [place] [address] Jude Duque MD [address] [place] [address] documented as of this encounter Procedures Procedure [...] 07/11/2025 12:36 PM us Micheal E Pee RIDE ASSEMBLY SUPERVISOR, DNP IMG XR PROCEDURES Tari l Result [...] documented as of this encounter Care Teams Process Description Writer Relationship Specialty Start Date End Date Alvarez Zimmer MD [address] [place] [address] PCP - General Family Medicine 12/07/24 Lea Fernando [address] [facility] [address] [place] [address] Ion Implant Machine Operator Endocrinology 08/29/24 Rachel Ray APRN [address] [place] [address] Nurse Practitioner Gastroenterology 09/24/24 Tamera Isabel LPN VALUE-BASED TRANSFORMATION PROGRAM Licensed Practical Nurse 05/29/25 Monique Tapia LPN VALUE-BASED [place] [address] TCM Nurse 07/10/25 documented as of this encounter
--- OUTSIDE RECORDS SUMMARY | 2025-07-18 09:08 | XMS_ITS | Encounter Summary ---
Author Organization [facility] Address [address] [place] [address] Care Team Providers Care Technical Translator Name Role Phone Lea Fernando Unavailable [phone] Rachel Ray APRN Unavailable [phone] Alvarez Zimmer MD Primary Care Provider [phone] Tamera Isabel NUTRITION SERVICES MANAGER Unavailable Unavailabl Monique Garay NUTRITION SERVICES MANAGER Unavailable Unavailable Reason for Referral * Clinic-Administered Medication (Routine) - Closed Specialty Diagnoses / Procedures Referred By Contac t Referred To Contact Diagnoses Other ascites Procedures IA ALBUMIN (HUMAN), 25%, 50ML Shaniqua Mccurdy APRN [address] [place] [address] Phone: tel: fax: Referral ID Status Reason Start Date Expiration Date Visits Re quested Visits Authorized [id number] Closed 07/18/2025 01/17/2027 1 1 * Imaging (Routine) - Closed Specialty Diagnoses / Procedures Referred By Contac t Referred To Contact Radiology Diagnoses Other ascites Procedures US Guided Abdominal Paracentesis Marianna Gordon APRN [address] [place] [address] Phone: tel: fax: Referral ID Status Reason Start Date Expiration Date Visits Re quested Visits Authorized [id number] Closed 06/14/2025 12/14/2026 1 1 * Imaging (Routine) - Closed Specialty Diagnoses / Procedures Referred By Contac t Referred To Contact Radiology Diagnoses Shortness of breath Pleural effusion Procedures US Guided Thoracentesis Marianna Gordon APRN [address] [place] [address] Phone: tel: fax: Referral ID Status Reason Start Date Expiration Date Visits Re quested Visits Authorized [id number] Closed 06/14/2025 12/14/2026 1 1 Reason for Visit * Imaging (Routine) - Closed Specialty Diagnoses / Procedures Referred By Contac t Referred To Contact Radiology Diagnoses Shortness of breath Pleural effusion Procedures US Guided Thoracentesis Marianna Gordon APRN [address] [place] [address] Phone: tel: fax: Referral ID Status Reason Start Date Expiration Date Visits Re quested Visits Authorized [id number] Closed 06/14/2025 12/14/2026 1 1 Encounter Details Date Type Department Care Team (Latest Contact Info) Description 07/18/2025 9:08 AM EDT - 07/18/2025 12:07 PM EDT Hospital Encounter [facility] Interventional Radiology [address] [place] [address] Stu Samayoa Shortness of breath; Pleural effusion; Other ascites [...] week 01/10/2025 How often do you attend [facility] or latter-day services? Patient unable to answer [...] week 05/29/2025 How often do you attend [facility] or latter-day services? Never 05/29/2025 Do you belong to [...] more drinks on one occasion? Never 06/25/2025 [facility] - [...] [facility] the [facility], were you [facility] or living [...] drink first t kennedy in the morning (EYE-BED AND BREAKFAST INNKEEPER) to steady your nerves or to get rid of a hangover? 0 06/25/2025 CAGE Questionnaire Score 0 025 Utilities Answer Date Recorded In the past 12 months has th [employer] electric, gas, oil, or water company threatened [...] Sign Reading Time Taken Comments Blood Pressure 89/46 07/18/2025 11:40 AM EDT Pulse 78 07/18/2025 11:40 AM EDT Temperature 36.3 C (97.4 F) 07/18/2025 11:20 AM EDT Respiratory Rate 18 07/18/2025 11:4 0 AM EDT Oxygen Saturation 95% 07/18/2025 11: 40 AM EDT Inhaled Oxygen Concentration - - Weight 84.7 kg (186 lb 11.7 oz) 07/18/2025 9:55 AM EDT Height 165.1 cm (5' 5 ) 07/18/2025 9:55 AM EDT Body Mass Index 31.07 07/18/2025 9:55 AM EDT documented in this encounter Functional [...] this encounter Discharge Instructions * Discharge Instructions* Stu Samayoa - 07/18/2025 11:35 AM EDT *Interventional Radiology* (IR) Questions/Concerns & Appointments: If there are questions or concerns after discharge please call: [facility] at [phone] Tuesday - Tuesday 8:00 AM to 4:30 PM After hours, weekends, and holidays please call [phone] and ask for the Interventional Radiology provider/Resident on-call Intervention Radiology Appointments: If you need to reschedule a procedure, please call our Schedulers at [phone], option 4. If you need to schedule or reschedule a clinic appointment, please call [phone]. [facility] V[facility] Interventional Radiology Clinic [place] [id number] [facility], First Floor[address] [place] [address] documented in this encounter Medications at Time [...] 1 03/01/2025 ergocalciferol (Vitamin D-2) 1.25 MG (34474 UT) capsuleIndication s:Vitamin D deficiency Take 1 [...] Post-Procedure Note - Shaniqua Mccurdy APRN - 07/18/2025 10:30 AM EDT Vascular and Interventional Radiology Brief Postprocedure Note Performed by: Shaniqua Mccurdy APRN Pre-operative Diagnosis: Pleural effusion Post-operative Diagnosis: same Type of Anesthesia: Local Description of Findings: Right pleural effusion. Technical/Surgical Procedures Used: US guided thoracentesis. Specimen Obtained: No Complications: None Estimated Blood Loss: none Procedure Events Event Event Time See detailed result report with images in PACS. The patient tolerated the procedure well without incident or complication and is in stable condition. * Post-Procedure Note - Shaniqua Mccurdy APRN - 07/18/2025 10:30 AM EDT Vascular and Interventional Radiology Brief [...] H&P Note - Shaniqua Mccurdy APRN - 07/18/2025 10:30 AM EDT Reviewed H/P, here for outpatient paracentesis and thoracentesis. Source Note - Micheal Glasgow APRN, DNP [...] - Any questions with scheduling please call [phone] - Please place orders for desired fluid studies to be sent for analysis prior to procedure Thank you for allowing us to participate in the care of this patient. Micheal Glasgow, WIND POWER PROJECT MANAGER, DNP Interventional Radiology [phone] [1] Past Medical History: Diagnosis Date ADHD (attention deficit hyperactivity disorder) Allergic Anxiety disorder, unspecified Anxiety Bleeding gums Blood in urine Cataract Chronic kidney disease Cirrhosis (CMS/HCC) Colon cancer screening 09/20/2019 Added automatically from request for surgery [id number] Coronary artery disease Depression 1996 Diabetes mellitus [...] 1979 BLADDER SURGERY N/A Bladder surgery from [email or web address] BREAST BIOPSY 2011 BREAST SURGERY 2010 BUNIONECTOMY Right CATARACT EXTRACTION Bilateral 2016 CHOLECYSTECTOMY 1979 ESOPHAGOGASTRODUODENOSCOPY HYSTERECTOMY N/A Hysterectomy from [email or web address] KNEE SURGERY Bilateral ORAL SURGERY N/A Oral surgery from [email or web address] OTHER SURGICAL HISTORY 2014 ROOT CANAL WISDOM TOOTH EXTRACTION [3] Social History Tobacco Use Smoking status: Never Passive exposure: Never Smokeless tobacco: Never Vaping Use Vaping status: Never Used Substance Use Topics Alcohol use: Not Currently Drug use: Never [4] No Known Allergies [5] Current Facility-Administered Medications: albumin human 25 % infusion 12.5 g, 12.5 g, Intravenous, q15 min PRN, Marianna Gordon N, WIND POWER PROJECT MANAGER albumin human 25 % infusion 87.5 g, 1 g/kg, Intravenous, q24h, Dayne Medel R, DO, 87.5 g at 07/02/25 1227 benzonatate (Tessalon) capsule 100 mg, 100 mg, Oral, TID PRN, Veronica Del Valle K, DO calcitriol (Rocaltrol) capsule 0.25 mcg, 0.25 mcg, Oral, Daily, Blayne Zimmer DO, 0.25 mcg at 07/03/25 0935 calcium carbonate (Tums) chewable tablet 750 mg, 750 mg, Oral, Daily, Blayne Zimmer DO, 750 mg at07/03/25 0935 capsaicin (Zostrix) 0.025 % cream, , Topical, BID PRN, Blayne Zimmer DO cetirizine (ZyrTEC) tablet 10 mg, 10 mg, Oral, Daily, Blayne Zimmer DO, 10 mg at 07/03/25 0935 cholecalciferol (Vitamin D-3) tablet 1,000 Units, 1,000 Units, Oral, Daily, Blayne Zimmer DO, 1,000 Units at 07/03/25 0935 ciprofloxacin (Cipro) tablet 500 mg, 500 mg, Oral, Daily, Blayne Zimmer DO, 500 mg at 07/03/25 0935 glucose [...] q12h, Irvin Ball MD, 5,000 Units at 07/03/2534 insulin glargine-yfgn 100 UNIT/ML injection 24 Units, [...] Blayne Zimmer DO, 20 g at 07/03/25 09 magnesium oxide (Mag-Ox) tablet 400 mg, 400 mg, Oral, Daily, Blayne Zimmer DO, 400 mg at midodrine (Proamatine) tablet [...] mL, 10 mL, Intravenous, PRN, Blayne Zimmer S, DO Insert peripheral IV, , , Once AND Saline lock IV, , , Once AND sodium chloride 0.9 % flush10 mL, 10 mL, Intravenous, q12h, 10 mL at 07/03/25 0015 AND sodium chloride 0.9 % flush 10 mL, 10 mL, Intravenous, PRN, Maria Dolores Ontiveros, ADRI, ANGELLA documented in this encounter Plan of Treatment Upcoming Encounters Date Type Department Care Team (Late st Contact Info) Description 08/01/2025 10:00 AM EDT Appointment [facility] Interventional Radiology [address] [place] [address] 08/01/2025 11:00 AM EDT Appointment [facility] Interventional Radiology [address] [place] [address] 08/08/2025 11:15 AM EDT Appointment [facility] Interventional Radiology [address] [place] [address] 08/08/2025 12:15 PM EDT Appointment [facility] Interventional Radiology [address] [place] [address] 2025 10:00 AM EDT Appointment [facility] Interventional Radiology [address] [place] [address] 2025 11:00 AM EDT Appointment [facility] Interventional Radiology [address] [place] [address] 08/20/2025 9:30 AM EDT Clinical Support [facility] [address] [place] [address] 08/20/2025 10:30 AM EDT Social Work [facility] [address] [place] [address] [place] [address] 08/20/2025 11:00 AM EDT Office Visit [facility] [address] [place] [address] Jude Duque MD [address] [place] [address] documented as of this encounter Procedures Procedure Name Priority Date/Time Associated Diagnosis Comments XR CHEST 1 VIEW STAT 07/18/2025 12:52 PM EDT US GUIDED ABDOMINAL PARACENTESIS Routine 07/18/2025 11:15 AM EDT Other ascites US GUIDED THORACENTESIS Routine 07/18/20 11:15 AM EDT Shortness of breath Pleural effusion BODY FLUID CELL COUNT W/ MANUAL DIFFERENTIAL Routine 07/18/2025 10:23 AM EDT BODY FLUID, CYTOSPIN, PATHOLOGIST INTERPRETATION Routine 07/18/2025 10:23 AM EDT TOTAL PROTEIN, PERITONEAL FLUID Routine 07/18/2025 10:23 AM EDT GLUCOSE, PERITONEAL FLUID Routine 07/18/2025 10:23 AM EDT documented in this encounter Results * XR Chest 1 View (07/18/2025 12:52 PM EDT) Anatomical Region Laterality Modality Chest Digital Radiogra phy Impressions 07/18/2025 12:56 PM EDT No acute findings. CRITICAL RESULT: No. COMMUNICATION: Per this written report Drafted by Bari Aguillon MD on 07/18/2025 12:55 PM Final report signed by Bari Aguillon MD on 07/18/2025 12:56 PM Narrative 07/18/2025 12:56 PM EDT CLINICAL INDICATION: s/p thora TECHNIQUE: XR CHEST 1 VIEW COMPARISON: July 11, 2025 FINDINGS: No consolidation. No pleural effusion. Mediastinal and cardiac contours are stable. Procedure Note Bari Aguillon MD - 07/18/2025 CLINICAL INDICATION: s/p thora TECHNIQUE: XR CHEST 1 VIEW COMPARISON: July 11, 2025 FINDINGS: No consolidation. No pleural effusion. Mediastinal and cardiac contoursare stable. IMPRESSION: No acute findings. CRITICAL RESULT: No. COMMUNICATION: Per this written report Drafted by Bari Aguillon MD on 07/18/2025 12:55 PM Final report signed by Bari Aguillon MD on 07/18/2025 12:56 PM us Shaniqua Mccurdy APRN IMG XR PROCEDURES Final Resu lt * US Guided Abdominal Paracentesis (07/18/2025 11:15 AM EDT) Anatomical Region Laterality Modality Abdomen Ultrasound Impressions 07/18/2025 2:18 PM EDT Technically successful US-guided paracentesis. A total of 3.5 liters of clear yellow fluid was removed. A sample of the fluid was sent for laboratory analysis. Administered Albumin 37.5 g IV once post procedure, patient additionally had thoracentesis. CRITICAL RESULT: No. COMMUNICATION: Per this written report. Preliminary report signed by SOLANGE Singleton on 07/18/2025 12:19 PM By electronically signing this report, I, the attending physician, attest that I was not present for the procedure(s) but agree with the final edited report. 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 TECHNIQUE: Roller Helper: Shaniqua Mccurdy APRN Secondary Ball Assembler: None. Rad Dose: NA Medications: Continuous physiologic monitoring provided by a qualified healthcare professional. Administered: 1% Lidocaine SQ. Antibiotics: NA Time out: 1019 Procedure: After discussion of risks and benefits, [...] permanent storage in PACS. A total of 3.5 liters of clear yellow fluid was removed. The centesis catheter was removed and occlusive dressing applied. The patient tolerated the procedure well. The patient left the IR suite in stable condition. COMPARISON: None. FINDINGS: Moderate volume ascites. COMPLICATION: No. Procedure Note Ck Palacios MD - 07/18/2025 CLINICAL INDICATION: 64 year old female with decompensated cirrhosis complicated by ascites andhepatic hydrothorax. TECHNIQUE: Roller Helper: Shaniqua Mccurdy APRN Secondary Ball Assembler: None. Rad Dose: NA Medications: Continuous physiologic monitoring provided by a qualifiedhealthcare professional. Administered: 1% Lidocaine SQ. Antibiotics: NA Time out: 101 Procedure: After discussion of risks and benefits, [...] to permanentstorage in PACS. A total of 3.5 liters of clear yellow fluid was removed.The centesis catheter was removed and occlusive dressing applied. The patient tolerated the procedure well. The patient left the IR suitein stable condition. COMPARISON: None. FINDINGS: Moderate volume ascites. COMPLICATION: No. IMPRESSION: Technically successful US-guided paracentesis. A total of 3.5 liters of clear yellow fluid was removed. A sample of the fluid was sent for laboratory analysis. Administered Albumin 37.5 g IV once post procedure, patient additionallyhad thoracentesis. CRITICAL RESULT: No. COMMUNICATION: Per this written report. Preliminary report signed by SOLANGE Singleton on 07/18/2025 12:19 PM By electronically signing this report, I, the attending physician, attestthat I was not present for the procedure(s) but agree with the finaledited report. Drafted by SOLANGE Singleton on 07/18/2025 12:17 PM Final report signed by Ck Palacios MD on 07/18/2025 2:18 PM us Marianna Gordon APRN IMG US PROCEDURES Final Resu lt * US Guided Thoracentesis (07/18/2025 11:15 AM EDT) Anatomical Region Laterality Modality Chest Ultrasound Impressions 07/18/2025 2:18 PM EDT Technically successful ultrasound guided thoracentesis. A total of 1.3Lof clear yellow fluid was removed. A sample of the fluid was sent for laboratory analysis. CRITICAL RESULT: No. COMMUNICATION: Per this written report. Preliminary report signed by SOLANGE Singleton on 07/18/2025 12:21 PM By electronically signing this report, I, the attending physician, attest that I was not present for the procedure(s) but agree with the final edited report. Drafted by SOLANGE Singleton on 07/18/2025 12:19 PM Final report signed by Ck Palacios MD on 07/18/2025 2:18 PM Narrative 07/18/2025 2:18 PM EDT CLINICAL INDICATION: 64 year old female with decompensated cirrhosis complicated by ascites and recurrent hepatic hydrothorax. TECHNIQUE: Roller Helper: Shaniqua Mccurdy APRN Secondary Ball Assembler: None. Rad Dose: NA Medications: Continuous physiologic monitoring provided by a qualified healthcare professional. Administered: 1% Lidocaine SQ. Antibiotics: NA Time out: 1019 Procedure: After discussion of risks and benefits, [...] permanent storage in PACS. A total of 1.3Lof clear yellow fluid was removed. The needle was removed and occlusive dressing applied. The patient tolerated the procedure well. The patient left the IR suite in stable condition. COMPARISON: None. FINDINGS: Moderate right, simple, pleural fluid. COMPLICATION: No. Procedure Note Ck Palacios MD - 07/18/2025 CLINICAL INDICATION: 64 year old female with decompensated cirrhosis complicated by ascites andrecurrent hepatic hydrothorax. TECHNIQUE: Roller Helper: Shaniqua Mccurdy APRN Secondary Ball Assembler: Aparna. Rad Dose: NA Medications: Continuous physiologic monitoring provided by a qualifiedhealthcare professional. Administered: 1% Lidocaine SQ. Antibiotics: NA Time out: 1019 Procedure: After discussion of risks and benefits, [...] to permanentstorage in PACS. A total of 1.3Lof clear yellow fluid was removed. Theneedle was removed and occlusive dressing applied. The patient tolerated the procedure well. The patient left the IR suitein stable condition. COMPARISON: None. FINDINGS: Moderate right, simple, pleural fluid. COMPLICATION: No. IMPRESSION: Technically successful ultrasound guided thoracentesis. A total of 1.3Lof clear yellow fluid was removed. A sample of the fluid was sent for laboratory analysis. CRITICAL RESULT: No. COMMUNICATION: Per this written report. Preliminary report signed by SOLANGE Singleton on 07/18/2025 12:21 PM By electronically signing this report, I, the attending physician, attestthat I was not present for the procedure(s) but agree with the finaledited report. Drafted by SOLANGE Singleton on 07/18/2025 12:19 PM Final report signed by Ck Palacios MD on 07/18/2025 2:18 PM us Marianna Gordon WIND POWER PROJECT MANAGER IMG US PROCEDURES Final Resu lt * Body fluid, cytospin, pathologist interpretation (07/18/2025 10:23 AM EDT) Specimen Type Body Fluid LAB HEMATOLOGY METHOD 07/19/2025 12:51 PM EDT [facility] Specimen Source, Body Fluid Peritoneal Fluid LAB HEMATOLOGY METHOD 07/19/2025 12:51 PM EDT [facility] Clinical Diagnosis, Body Fluid Ascites LAB HEMATOLOGY METHOD 07/19/2025 12:51 PM EDT [facility] Interpretation , Body Fluid No evidence of malignancy Predominantly chronic inflammatory cells Light blood A resident was involved in the service. I attest I examined the relevant preparations for the specimens and confirmed the diagnosis or interpretation. 07/19/2025 12:51 PM EDT [facility] Pathologist Signature, Body Fluid 07/19/2025 12:51 PM EDT [facility] Comment:Reviewed by: Kadie dobbs MD LAB CP ASR DISCLAIMER Yes 07/19/2025 12:51 PM EDT [facility] Body Fluid Peritoneal fluid / Unknown Non-blood Collection / Unknown 07/18/2025 10:23 AM EDT 07/18/2025 12:01 PM EDT Shaniqua Mccurdy WIND POWER PROJECT MANAGER LAB BODY FLUIDS AND STOOLS O RDERABLES Final Result Performing Organization Address [facility] Co de Phone Number [facility] [address] [place] [address] * Glucose - Ascites (07/18/2025 10:23 AM EDT) Glucose, Fluid 197 mg/dL 07/18/2025 1:43 PM EDT [facility] Peritoneal Fluid Peritoneal cavity structure / Unknown Non-blood Collection / Unknown 07/18/2025 10:23 AM EDT 07/18/2025 12:01 PM EDT Narrative [facility] - 07/18/2025 1:43 PM EDT Peritoneal/Ascites No established reference interval. [...] plasma; 3) Glucose < 50 mg/dL. Shaniqua Artisfloridalma ROUSEN LAB BODY FLUIDS AND STOOLS O RDERABLES Final Result Performing Organization Address [facility] Co de Phone Number [facility] [address] [place] [address] * Protein - Ascites (07/18/2025 10:23 AM EDT) Total Protein, Fluid 1.3 g/dL 07/18/2025 1:43 PM EDT [facility] Peritoneal Fluid Peritoneal cavity structure / Unknown Non-blood Collection / Unknown 07/18/2025 10:23 AM EDT 07/18/2025 12:01 PM EDT Narrative [facility] - 07/18/2025 1:43 PM EDT This test was developed and its performance characteristics determined by [facility]. The U.S. Food and Drug Administration has not approved or cleared this test. However, FDA clearance or approval is not currently required for clinical use. The results are not intended to be used as the sole means for clinical diagnosis or patient management decisions. us Shaniqua Mccurdy WIND POWER PROJECT MANAGER LAB BODY FLUIDS AND STOOLS O RDERABLES Final Result [facility] [address] [place] [address] * (ABNORMAL) Body Fluid Cell Count With Diff - Ascites (07/18/2025 10:23 AM EDT) Color, Body fluid Yellow LAB HEMATOLOGY METHOD 07/18/2025 4:15 PM EDT [facility] Appearance, Body fluid Cloudy(A) LAB HEMATOLOGY METHOD 07/18/2025 4:15 PM EDT [facility] Volume, Body fluid 8.0 cc LAB HEMATOLOGY METHOD 07/18/2025 4:15 PM EDT [facility] Fluid Container Tube 2 LAB HEMATOLOGY METHOD 07/18/2025 4:15 PM EDT [facility] Red Blood Cell Count, Body fluid 7,000 uL LAB HEMATOLOGY METHOD 07/18/2025 4:15 PM EDT [facility] Total Nucleated Cell Count, Body fluid 175 uL LAB HEMATOLOGY METHOD 07/18/2025 4:15 PM EDT [facility] Neutrophils %, Body fluid 3 % LAB HEMATOLOGY METHOD 07/18/2025 4:15 PM EDT [facility] Lymphocytes %, Body fluid 72 % LAB HEMATOLOGY METHOD 07/18/2025 4:15 PM EDT [facility] Monocytes/Macro phages %, Body fluid 22 % LAB HEMATOLOGY METHOD 07/18/2025 4:15 PM EDT [facility] Eosinophils %, Body fluid 0 % LAB HEMATOLOGY METHOD 07/18/2025 4:15 PM EDT [facility] Lining/Mesothel ial Cells %, Body fluid 3 % LAB HEMATOLOGY METHOD 07/18/2025 4:15 PM EDT [facility] Neutrophils Absolute (PMN), Body fluid 5 uL LAB HEMATOLOGY METHOD 07/18/2025 4:15 PM EDT [facility] Lymphocytes Absolute, Body fluid 126 uL LAB HEMATOLOGY METHOD 07/18/2025 4:15 PM EDT [facility] Monocytes/Macro phages Absolute, Body fluid 39 uL LAB HEMATOLOGY METHOD 07/18/2025 4:15 PM EDT [facility] Eosinophils Absolute, Body fluid 0 uL LAB HEMATOLOGY METHOD 07/18/2025 4:15 PM EDT [facility] Basophils Absolute, Body fluid 0 uL LAB HEMATOLOGY METHOD 07/18/2025 4:15 PM EDT [facility] Lining/Mesothel ial Cells Absolute, Body fluid 5 uL LAB HEMATOLOGY METHOD 07/18/2025 4:15 PM EDT [facility] Basophils %, Body fluid 0 % LAB HEMATOLOGY METHOD 07/18/2025 4:15 PM EDT [facility] Body Fluid Peritoneal fluid / Unknown Non-blood Collection / Unknown 07/18/2025 10:23 AM EDT 07/18/2025 12:01 PM EDT Shaniqua Mccurdy WIND POWER PROJECT MANAGER LAB BODY FLUIDS AND STOOLS ORDERABLES NO SPECIMEN TYPE/SOURCE Final Result [facility] [address] [place] [address] documented in this encounter Visit Diagnoses Diagnosis Shortness of breath Pleural effusion Unspecified pleural effusion Other ascites documented in this encounter Administered Medications Inactive Administered Medications - up to 3 most recent administrations Medication Order MAR Action Action Date Dose Rate Site albumin human 25 % infusion 37.5 g 37.5 g, Intravenous, Once as needed, 1 dose, Starting on Sarahi 07/18/25 at 0912, Until Sarahi 07/18/25 at 1114, Routine, Intraprocedure, For 5-6.9 L drained New Bag 07/18/2025 11:14 AM EDT 37.5 g lidocaine 0.9% in sodium bicarbonate (buffered lidocaine) solution solution As needed, Starting on Sarahi 07/18/25 at 1020, Until Sarahi 07/18/25 at 1059, Routine, Intraprocedure Given 07/18/2025 10:59 AM EDT 10 mL Right Upper Arm (Back) Given 07/18/2025 10:20 AM EDT 10 mL A bdominal Tissue documented in this encounter Additional Health Concerns Assessment Noted Time PHQ-9 Depression Total Score: 6 06/11/20 10:59 AM EDT A fall risk assessment has been complete d for the patient 06/25/2025 12:59 PM EDT A Body Mass Index follow-up plan has been documented for the patient 07/18/2025 11:37 AM EDT documented as of this encounter Care Teams Technical Translator Relationship Specialty Start Date End Date Alvarez Zimmer MD [address] [place] [address] PCP - General Family Medicine 12/07/24 Lea Fernando [address] [place] [address] Contract Recruiter Endocrinology 08/29/24 Rachel Ray APRN [address] [facility] [address] [place] [address] Nurse Practitioner Gastroenterology 09/24/24 Tamera Isabel LPN VALUE-BASED TRANSFORMATION PROGRAM Licensed Practical Nurse 05/29/25 Monique Tapia LPN VALUE-BASED [place] [address] TCM Nurse 07/10/25 documented as of this encounter
--- OUTSIDE RECORDS SUMMARY | 2025-07-18 12:08 | XMS_ITS | Encounter Summary ---
Author Organization Healthcare Address [address] [place] [address] Care Team Providers Care Functional Architect Name Role Phone Lea Fernando Unavailable [phone] Rachel Ray FEED HOUSE SUPERVISOR Unavailable [phone] Alvarez Zimmer MD Primary Care Provider [phone] Tamera Isabel TECHNICAL ASSOC Unavailable Unavailabl Monique Garay TECHNICAL ASSOC Unavailable Unavailable Encounter Details Date Type Department Care Team (Latest Contact Info) Description 07/18/2025 12:08 PM EDT - 07/18/2025 11:59 PM EDT Hospital Encounter [facility] Rad[facility] [address] [place] [address] Discharge Disposition: Home or Self Care Social [...] How often do you attend [facility] or mandaeism services? Patient unable to answer 01/10/2025 Do you belong to any clubs o r organizations such as islam groups, unions, [employer] or athletic groups, or school groups? Patient [...] more drinks on one occasion? Never 06/25/2025 [facility] - Occupational Stress Questionnaire Answer Date [...] any time in the past 12 m [facility], were you homeless or living in a fdc (including now)? No 06/26/2025 CAGE ASSESSMENT Answer [...] drink first t kennedy in the morning (EYE-WALLPAPER INSTALLER) to steady your nerves or to get rid of a hangover? 0 06/25/2025 CAGE Questionnaire Score 0 025 Utilities Answer Date Recorded In the past 12 months has th e [employer], gas, oil, or water [employer] threatened to shut off services in your [...] 1 03/01/2025 ergocalciferol (Vitamin D-2) 1.25 MG (87552 UT) capsuleIndication s:Vitamin D deficiency Take 1 [...] Appointment [facility] Inter[facility] Radiology [address] [place] [address] 08/01/2025 11:00 AM EDT Appointment [facility] [address] [place] [address] 08/08/2025 11:15 AM EDT Appointment [facility] [address] [place] [address] 08/08/2025 12:15 PM EDT Appointment [facility] [address] [place] [address] 2025 10:00 AM EDT Appointment [facility] [address] [place] [address] 2025 11:00 AM EDT Appointment [facility]iology [address] [place] [address] 08/20/2025 9:30 AM EDT Clinical Support [facility] [place] [address] [place] [address] 08/20/2025 10:30 AM EDT Social Work [facility] [place] [address] [place] [address] [place] [address] 08/20/2025 11:00 AM EDT Office Visit [facility] [place] [address] [place] [address] Jude Duque MD [address] [facility] [address] [place] [address] documented as of this encounter Procedures Procedure [...] MD on 07/18/2025 12:56 PM Shaniqua Mccurdy FEED HOUSE SUPERVISOR IMG XR PROCEDURES Final Resu lt [...] documented as of this encounter Care Teams Functional Architect Relationship Specialty Start Date End Date Alvarez Zimmer MD [address] [place] [phone] PCP - General Family Medicine 12/07/24 Lea Fernando [address] [facility] [address] [place] [address] Anchor Operator Endocrinology 08/29/24 Rachel Ray APRN [address] [place] [address] Nurse Practitioner Gastroenterology 09/24/24 Tamera Isabel LPN VALUE-BASED TRANSFORMATION PROGRAM Licensed Practical Nurse 05/29/25 Monique Tapia LPN VALUE[employer] [address] TCM Nurse 07/10/25 documented as of this encounter
--- OUTSIDE RECORDS SUMMARY | 2025-07-25 08:57 | XMS_ITS | Encounter Summary ---
Author Organization [facility] Address [address] [place] [address] Care Team Providers Care Anesthesiology Resident Name Role Phone Lea Fernando Unavailable [phone] Rachel Ray MEDICAL PHYSICIST Unavailable [phone] Alvarez Zimmer MD Primary Care Provider [phone] Tamera Isabel AUDOGRAPH OPERATOR Unavailable Unavailabl Monique Garay AUDOGRAPH OPERATOR Unavailable Unavailable Reason for Referral * Imaging (Routine) - Closed Specialty Diagnoses / Procedures Referred By Contac t Referred To Contact Radiology Diagnoses Other ascites Procedures US Guided Abdominal Paracentesis Marianna Gordon APRN [address] [place] [address] Phone: tel: fax: Referral ID Status Reason Start Date Expiration Date Visits Re quested Visits Authorized [id number] Closed 06/14/2025 12/14/2026 1 1 * Imaging (Routine) - Closed Specialty Diagnoses / Procedures Referred By Contac t Referred To Contact Radiology Diagnoses Shortness of breath Pleural effusion Procedures US Guided Thoracentesis Marianna Gordon APRN [address] [place] [address] Phone: tel: fax: Referral ID Status Reason Start Date Expiration Date Visits Re quested Visits Authorized [id number] Closed 06/14/2025 12/14/2026 1 1 * Clinic-Administered Medication (Routine) - Closed Specialty Diagnoses / Procedures Referred By Eder zhu Referred To Contact Diagnoses Other ascites Procedures VA ABDOM PARACENTESIS DX/THER W IMAGING GUIDANCE Marianna Gordon APRN [address] [place] [address] Phone: tel: fax: [address] [address] Phone: tel: fax: Referral ID Status Reason Start Date Expiration Date Visits Re quested Visits Authorized [id number] Closed 07/25/2025 01/24/2027 1 1 Reason for Visit * Imaging (Routine) - Closed Specialty Diagnoses / Procedures Referred By Eder zhu Referred To Contact Radiology Diagnoses Shortness of breath Pleural effusion Procedures US Guided Thoracentesis Marianna Gordon APRN [address] [place] [address] Phone: tel: fax: Referral ID Status Reason Start Date Expiration Date Visits Re quested Visits Authorized [id number] Closed 06/14/2025 12/14/2026 1 1 Encounter Details Date Type Department Care Team (Late st Contact Info) Description 07/25/2025 8:57 AM EDT - 07/25/2025 1:19 PM EDT Hospital Encounter [facility] Interventional Radiology [address] [place] [address] Kandice Silva, RN CH-VASCULAR & INTERVENTIONAL RADIOLOGY [...] do you attend [facility] or restorationism services? Patient unable to [...] often do you attend [facility] or restorationism services? Never 05/29/2025 Do [...] one occasion? Never [facility]20[facility]ational [facility] Questionnaire Answer [...] drink first t kennedy in the morning (EYE-TECHNICAL AGRONOMIST) to steady your nerves or to get [...] call: Vascular and Interventional Radiology Clinic at [phone] Tuesday - Tuesday 8:00 AM to 4:30 PM After hours, weekends, and holidays please call [phone] and ask for the Interventional Radiology provider/Resident on-call Intervention Radiology Appointments: If you need to reschedule a procedure, please call our Schedulers at [phone], option [phone]. If you need to schedule or reschedule a clinic appointment, please call [phone]. [facility] Inter[facility] Rad[facility] Clinic [address], [facility] [address] [place] [address] documented in this encounter Medications at Time [...] 1 03/01/2025 ergocalciferol (Vitamin D-2) 1.25 MG (32656 UT) capsuleIndication s:Vitamin D deficiency Take 1 [...] from the original note were not included. [id number] Discharge Instructions for Thoracentesis Thoracentesis is a [...] blood. Last Reviewed Date: 2025 00:00:00 ?? [id number] [employer]. All rights reserved. This information is not intended as a substitute for professional medical care. Always follow your healthcare professional's instructions. * John ZendejasTHEO - Kandice Silva RN - 07/25/2025 12:55 PM EDT Images from the original note were not included. [id number] Discharge Instructions for Paracentesis Paracentesis is a [...] fainting. Last Reviewed Date: 2025 00:00:00 ?? [id number] [employer]. All rights reserved. This information is not intended as a substitute for professional medical care. Always follow your healthcare professional's instructions. * Post-Procedure Note - Fabiana Renee APRN, DNP - 07/25/2025 10:30 AM EDT Vascular and Interventional Radiology Brief Postprocedure Note Performed by: Fabiana Renee APRN Networking Engineer: Maria Dolores Ontiveros APRN Pre-operative Diagnosis: ascites [...] - Any questions with scheduling please call [phone] - Please place orders for desired fluid studies to be sent for analysis prior to procedure Thank you for allowing us to participate in the care of this patient. Micheal Glasgow, MEDICAL PHYSICIST, DNP Interventional Radiology [phone] [1] Past Medical History: Diagnosis Date ADHD (attention deficit hyperactivity disorder) Allergic Anxiety disorder, unspecified Anxiety Bleeding gums Blood in urine Cataract Chronic kidney disease Cirrhosis (CMS/HCC) Colon cancer screening 09/20/2019 Added automatically from request for surgery [id number] Coronary artery disease Depression 1995 Diabetes mellitus [...] 1979 BLADDER SURGERY N/A Bladder surgery from [facility] BREAST BIOPSY 2011 BREAST SURGERY 2010 BUNIONECTOMY Right CATARACT EXTRACTION Bilateral 2016 CHOLECYSTECTOMY 1979 ESOPHAGOGASTRODUODENOSCOPY HYSTERECTOMY N/A Hysterectomy from [facility] KNEE SURGERY Bilateral ORAL SURGERY N/A Oral surgery from [facility] OTHER SURGICAL HISTORY 2015 ROOT CANAL WISDOM TOOTH EXTRACTION [3] Social History Tobacco Use Smoking status: Never Passive exposure: Never Smokeless tobacco: Never Vaping Use Vaping status: Never Used Substance Use Topics Alcohol use: Not Currently Drug use: Never [4] No Known Allergies [5] Current Facility-Administered Medications: albumin human 25 % infusion 12.5 g, 12.5 g, Intravenous, q15 min PRN, Marianna Gordon N, MEDICAL PHYSICIST albumin human 25 % infusion 87.5 g, [...] Daily, Blayne Zimmer DO, 1,000 Units at 07/03/2535 ciprofloxacin (Cipro) [...] Appointment [facility] Interventional Radiology [address] [place] [address] 08/01/2025 11:00 AM EDT Appointment [facility] Interventional Radiology [address] [place] [address] 08/08/2025 11:15 AM EDT Appointment [facility] Inter[facility] Radiology [address] [place] [address] 08/08/2025 12:15 PM EDT Appointment [facility]iology [address] [place] [address] 2025 10:00 AM EDT Appointment [facility] Inter[facility] Radiology [address] [place] [address] 2025 11:00 AM EDT Appointment [facility] Inter[facility] Radiology [address] [place] [address] 08/20/2025 9:30 AM EDT Clinical Support [facility] [place] [address] [place] [address] 08/20/2025 10:[address] [facility] [address] [place] [address] [place] [address] 08/20/2025 11:00 AM EDT Office Visit [facility] [address] [place] [address] Jude Duque MD [address] [place] [address] documented as of this encounter [...] - 99 mg/dL 07/25/2025 2:24 PM EDT [email or web address] Comment:Accuracy of a glucos e result [...] 07/25/2025 2:24 PM EDT [facility] Research Animal Attendant ID Kandice Silva 07/25/20 2:24 PM EDT HEALTHCARE LAB Device ID [id number] 07/25/2025 2:24 PM EDT HEALTHCARE LAB Specimen Type POC Capillary 07/25/2025 2:24 PM EDT [facility] Blood Capillary blood specimen / Unknown 07/25/2025 2:23 PM EDT 07/25/2025 2:24 PM EDT us Kandice Silva CARDIAC CATH LAB TECHNOLOGIST POINT OF CARE TE ST DOCKED DEVICE UNSOLICITED RESULTS Final Result Performing Organization Address City/State/[facility] Co de Phone Number [facility] [address] [place] [address] * XR Chest 1 View (07/25/2025 1:46 [...] cirrhosis with ascites and hepatic hydrothorax. TECHNIQUE: Hall Coordinator: Fabiana Renee Secondary Research Animal Attendant: Maria Dolores Ontiveros APRN. Rad Dose: NA [...] cirrhosis with ascites and hepatic hydrothorax. TECHNIQUE: Hall Coordinator: Fabiana Renee Secondary Research Animal Attendant: Maria Dolores Ontiveros APRN. Rad Dose: NA [...] to permanentstorage in PACS. A total of 2.7 liters [...] MD on 07/26/2025 8:51 AM us Marianna Gordon APRN IMG US [...] by ascites and intermittent hepatic hydrothorax. TECHNIQUE: Hall Coordinator: Maria Dolores Ontiveros APRN Secondary Research Animal Attendant: None. Rad Dose: NA Medications: Continuous physiologic [...] complicated by ascites and intermittenthepatic hydrothorax. TECHNIQUE: Hall Coordinator: Maria Dolores Ontiveros APRN Secondary Research Animal Attendant: None. Rad Dose: NA Medications: Continuous physiologic [...] 07/26/2025 8:50 AM us Marianna Gordon APRN IM US PROCEDURES Final Resu lt * Body fluid, cytospin, pathologist interpretation (07/25/2025 11:52 AM EDT) Specimen Type Body Fluid LAB HEMATOLOGY METHOD 07/26/2025 9:43 AM EDT [facility] Specimen Source, Body Fluid Peritoneal Fluid LAB HEMATOLOGY METHOD 07/26/2025 9:43 AM EDT [facility] Clinical Diagnosis, Body Fluid Ascites LAB HEMATOLOGY METHOD 07/26/2025 9:43 AM EDT [facility] Interpretation , Body Fluid No evidence of malignancy. Predominantly chronic inflammatory cells and reactive mesothelial cells. Light blood. 07/26/2025 9:43 AM EDT [facility] Pathologist Signature, Body Fluid 07/26/2025 9:43 AM EDT [facility] Comment:Reviewed by: Onur Roque MD LAB CP ASR DISCLAIMER No 07/26/2025 9:43 AM EDT [facility] Body Fluid Peritoneal fluid / Unknown Non-blood Collection / Unknown 07/25/2025 11:52 AM EDT 07/25/2025 2:26 PM EDT us Marianna N Cheeks MEDICAL PHYSICIST LAB BODY FLUIDS AND STOOLS O RDERABLES Final Result Performing Organization Address [facility] Co de Phone Number [facility] [address] [place] [address] * Protein - Ascites (07/25/2025 11:52 AM EDT) Total Protein, Fluid 0.9 g/dL 07/25/2025 5:00 PM EDT [facility] Ascites Peritoneal cavity structure / Unknown 07/25/2025 11:52 AM EDT 07/25/2025 2:26 PM EDT Narrative [facility] - 07/25/2025 5:00 PM EDT This test was developed and its performance characteristics determined by [facility]. The U.S. Food and Drug Administration has not approved or cleared this test. However, FDA clearance or approval is not currently required for clinical use. The results are not intended to be used as the sole means for clinical diagnosis or patient management decisions. us Marianna N Cheeks MEDICAL PHYSICIST LAB BODY FLUIDS AND STOOLS O RDERABLES Final Result Performing Organization Address [facility] Co de Phone Number [facility] [address] [place] [address] * (ABNORMAL) Body Fluid Cell Count With Diff - Ascites (07/25/2025 11:52 AM EDT) Color, Body fluid [place] LAB HEMATOLOGY METHOD 07/25/2025 4:56 PM EDT [facility] Appearance, Body fluid Cloudy(A) LAB HEMATOLOGY METHOD 07/25/2025 4:56 PM EDT [facility] Volume, Body fluid 30.0 cc LAB HEMATOLOGY METHOD 07/25/2025 4:56 PM EDT [facility] Fluid Container Specimen received in miscellaneous container LAB HEMATOLOGY METHOD 07/25/2025 4:56 PM EDT [facility] Red Blood Cell Count, Body fluid 4,000 uL LAB HEMATOLOGY METHOD 07/25/2025 4:56 PM EDT [facility] Total Nucleated Cell Count, Body fluid 158 uL LAB HEMATOLOGY METHOD 07/25/2025 4:56 PM EDT [facility] Neutrophils %, Body fluid 11 % LAB HEMATOLOGY METHOD 07/25/2025 4:56 PM EDT [facility] Lymphocytes %, Body fluid 54 % LAB HEMATOLOGY METHOD 07/25/2025 4:56 PM EDT [facility] Monocytes/Macr ophages %, Body fluid 27 % LAB HEMATOLOGY METHOD 07/25/2025 4:56 PM EDT [facility] Eosinophils %, Body fluid 0 % LAB HEMATOLOGY METHOD 07/25/2025 4:56 PM EDT [facility] Lining/Mesothe lial Cells %, Body fluid 8 % LAB HEMATOLOGY METHOD 07/25/2025 4:56 PM EDT [facility] Neutrophils Absolute (PMN), Body fluid 17 uL LAB HEMATOLOGY METHOD 07/25/2025 4:56 PM EDT [facility] Lymphocytes Absolute, Body fluid 85 uL LAB HEMATOLOGY METHOD 07/25/2025 4:56 PM EDT [facility] Monocytes/Macr ophages Absolute, Body fluid 43 uL LAB HEMATOLOGY METHOD 07/25/2025 4:56 PM EDT [facility] Eosinophils Absolute, Body fluid 0 uL LAB HEMATOLOGY METHOD 07/25/2025 4:56 PM EDT [facility] Basophils Absolute, Body fluid 0 uL LAB HEMATOLOGY METHOD 07/25/2025 4:56 PM EDT [facility] Lining/Mesothe lial Cells Absolute, Body fluid 13 uL LAB HEMATOLOGY METHOD 07/25/2025 4:56 PM EDT [facility] Basophils %, Body fluid 0 % LAB HEMATOLOGY METHOD 07/25/2025 4:56 PM EDT [facility] Body Fluid Peritoneal fluid / Unknown Non-blood Collection / Unknown 07/25/2025 11:52 AM EDT 07/25/2025 2:26 PM EDT Marianna N Evan MEDICAL PHYSICIST LAB BODY FLUIDS AND STOOLS ORDERABLES NO SPECIMEN TYPE/SOURCE Final Result [facility] [address] [place] [address] documented in this encounter Visit Diagnoses Diagnosis [...] documented as of this encounter Care Teams Anesthesiology Resident Relationship Specialty Start Date End Date Alvarez Zimmer MD [address] [place] [phone] PCP - General Family Medicine 12/07/24 Lea Fernando [address] [place] [address] Irb Compliance Coordinator Endocrinology 08/29/24 Rachel Ray APRN [address] [place] [address] Nurse Practitioner Gastroenterology 09/24/24 Tamera Isabel LPN VALUE-BASED TRANSFORMATION PROGRAM Licensed Practical Nurse 05/29/25 Monique Tapia LPN VALUE[employer] [address] TCM Nurse 07/10/25 documented as of this encounter
--- OUTSIDE RECORDS SUMMARY | 2025-07-25 13:20 | XMS_ITS | Encounter Summary ---
Author Organization Healthcare Address [address] [place] [address] Care Team Providers Care Metal Box Maker Name Role Phone Lea Fernando Unavailable [phone] Rachel Ray AUTOBODY TECHNICIAN Unavailable [phone] Alvarez Zimmer MD Primary Care Provider [phone] Tamera Isabel FORKLIFT OPERATOR Unavailable Unavailabl Monique Garay FORKLIFT OPERATOR Unavailable Unavailable Encounter Details Date Type Department Care Team (Latest Contact Info) Description 07/25/2025 1:20 PM EDT - 07/25/2025 11:59 PM EDT Hospital Encounter [facility] Radiology [address] [place] [address] Discharge Disposition: Home or Self Care Social [...] 01/10/2025 How often do you attend [facility] or denominational services? Patient unable to answer 01/10/2025 Do you belong to any clubs o r organizations such as worship groups, unions, [employer] or athletic groups, or school groups? Patient [...] more drinks on one occasion? Never 06/25/2025 [facility] - Occupational Stress Questionnaire Answer [...] first t kennedy in the morning (EYE-MEDICAL UNIT SECRETARY) to steady your nerves or to get rid of a hangover? 0 06/25/2025 CAGE Questionnaire Score 0 025 Utilities Answer Date Recorded In the past 12 months has th e [employer], gas, oil, or water [employer] threatened to shut off services in your [...] 1 03/01/2025 ergocalciferol (Vitamin D-2) 1.25 MG (20834 UT) capsuleIndication s:Vitamin D deficiency Take 1 [...] Appointment [facility] Inter[facility]iology [address] [place] [address] 08/01/2025 11:00 AM EDT Appointment [facility]iology [address] [place] [address] 08/08/2025 11:15 AM EDT Appointment [facility]iology [address] [place] [address] 08/08/2025 12:15 PM EDT Appointment [facility] [address] [place] [address] 2025 10:00 AM EDT Appointment [facility] Radiology [address] [place] [address] 2025 11:00 AM EDT Appointment [facility] Inter[facility] Radiology [address] [place] [address] 08/20/2025 9:30 AM EDT Clinical Support [facility] [place] [address] [place] [address] 08/20/2025 10:30 AM EDT Social Work [facility] [address] [place] [address] Deysi Ortega [place], [place] [id number] 08/20/2025 11:00 AM EDT Office Visit [facility] [address] [place] [address] Jude Duque MD [address] [place] [address] documented as of this encounter Procedures Procedure [...] as of this encounter Care Teams Metal Box Maker Relationship Specialty Start Date End Date Alvarez Zimmer MD [address] [place] [address] PCP - General Family Medicine 12/07/24 Lea Fernando [address] [phone] Radiation Oncology Nurse Endocrinology 08/29/24 Rachel Ray, AUTOBODY TECHNICIAN [address] [place] [address] Nurse Practitioner Gastroenterology 09/24/24 Tamera Isabel LPN VALUE-BASED TRANSFORMATION PROGRAM Licensed Practical Nurse 05/29/25 Monique Tapia LPN VALUE-[place] [address] TCM Nurse 07/10/25 documented as of this encounter
--- OUTSIDE RECORDS SUMMARY | 2025-07-31 17:27 | XMS_ITS | Encounter Summary ---
Author Organization [facility] Address [address] [place] [address] Care Team Providers Care Instructional Support Assistant Name Role Phone Lea Fernando Unavailable [phone] Rachel Ray DIRECTOR OF ANALYTICAL DEVELOPMENT Unavailable [phone] Alvarez Zimmer MD Primary Care Provider [phone] Tamera Isabel SENIOR FINANCIAL REPORTING ANALYST Unavailable UnavailAlina Bedolla RN Unavailable Unavailab Monique Che SENIOR FINANCIAL REPORTING ANALYST Unavailable Unavailable Reason for Visit * Reason Onset Date Comments Med Refill 05/21/2025 Encounter Details Date Type Department Care Team (Late st Contact Info) Description 05/21/2025 Refill [facility] [address], [address] [place] [address] Ar Dominique MD [address] [place] [address] Chronic kidney disease, stage 3b [...] often do you attend [facility] or caodaism services? Patient unable to answer 01/10/2025 Do you belong to any clubs o r organizations such as yazidi groups, unions, fraternal or athletic groups, or [...] Patient Health Questionnaire-2 Score 1 05/07/2025 [facility] of Occupat ional Health - Occupational Stress [...] drink first t kennedy in the morning (EYE-PRODUCT DEVELOPMENT DIRECTOR) to steady your nerves or to get rid of a hangover? 0 10/22/2024 CAGE Questionnaire Score 0 024 Utilities Answer Date Recorded In the past 12 months has th e [employer], gas, oil, or water [employer] threatened to shut off services in your [...] Appointment [facility] Interventional Radiology [address] [place] [address] 08/01/2025 11:00 AM EDT Appointment [facility] Interventional Radiology [address] [place] [address] 08/08/2025 11:15 AM EDT Appointment [facility] Interventional Radiology [address] [place] [facility] [place] [facility] [place] [address] 08/08/2025 12:15 PM EDT Appointment [facility] Interventional Radiology [address] [place] [address] 2025 10:00 AM EDT Appointment [facility] Interventional Radiology [address] [place] [address] 2025 11:00 AM EDT Appointment [facility] Interventional Radiology [address] [place] [address] 08/20/2025 9:30 AM EDT Clinical Support [facility] [place] [address] [address] 08/20/2025 10:30 AM EDT Social Work [facility] [place] [address] [place] [address] Desyi Ortega [place], [place] [phone] 08/20/2025 11:00 AM EDT Office Visit [facility] [place] [address] [address] Jude Duque MD [address] [place] [address] documented as of this encounter Visit Diagnoses [...] documented as of this encounter Care Teams Instructional Support Assistant Relationship Specialty Start Date End Date Alvarez Zimmer MD [address] [place] [address] PCP - General Family Medicine 12/07/24 Lea Fernando [address] [place] [address] Electronic Pagination System Operator Endocrinology 08/29/24 Rachel Ray APRN [address] [place] [address] Nurse Practitioner Gastroenterology 09/24/24 Tamera Isable LPN VALUE-BASED TRANSFORMATION PROGRAM Licensed Practical Nurse 05/29/25 Alina Lovett, RN [facility]VENT[facility] RADIOLOGY Registered Nurse 06/26/25 06/26/25 Monique Tapia LPN VALUE-BASED [place] [address] TCM Nurse 07/10/25 documented as of this encounter
--- OUTSIDE RECORDS SUMMARY | 2025-07-31 17:27 | XMS_ITS ---
Author Organization [facility] Address [address] [place] [address] Care Team Providers Care Tapper Balance Wheel Screw Hole Name Role Phone Lea Fernando Unavailable [phone] Rachel Ray SEAMAN OFFICER Unavailable [phone] Alvarez Zimmer MD Primary Care Provider [phone] Tamera Isabel LPN Unavailable UnavailMonique Marcus LPN Unavailable Unavailable Transitional Care Management Status:Identified (Enrolling) Start date:07/10/2025 Enrollment reason:Identified using hospital discharge data Overview This episode type is for outpatient care managers enrolling patients in the [facility] Transitional Care Management program. Case Team Name Relationship Phone Monique Tapia LPN(Responsible Staff) TCM Nurse Continued Care and Services Coordination
--- OUTSIDE RECORDS SUMMARY | 2025-07-31 17:27 | XMS_ITS | Encounter Summary ---
Author Organization [facility] Address [address] [place] [address] Care Team Providers Care Wallpaper Hanger Name Role Phone Lea Fernando Unavailable [phone] Rachel Ray ELECTROMEDICAL EQUIPMENT TECHNICIAN Unavailable [phone] Alvarez Zimmer MD Primary Care Provider [phone] Tamera Isabel LPN Unavailable Unavailabl e Encounter Details Date Type Department Care Team (Latest Contact Info) Description 06/25/2025 Travel Social History Tobacco Use Types Packs/Day [...] often do you attend chur ch or pentecostal services? Patient unable to answer [...] you attend [facility] or pentecostal services? Never 05/29/2025 Do [...] more drinks on one occasion? Never 06/25/2025 [facility]at ional [facility] - Occupational Stress Questionnaire Answer [...] drink first t kennedy in the morning (EYE-FLAP CURER) to steady your nerves or to get [...] of Assessment Author No Risk Indicated 06/25/2025 8:15 PM EDT Bia Carrillo * Question Answer Date of Assessment Author 1. Wish to be (Past 1 Month) No 025 8:15 PM EDT Bia Carrillo 2. Non-Specific Active Suici liz Thoughts (Past 1 Month) No 06/25/2025 8:15 PM EDT Yoli Carrillo ntkamaljit 6. Suicidal Behavior (Lifetime) No 8:15 PM EDT Bia Carrillo documented as of this encounter Plan of Treatment Upcoming Encounters Date Type Department Care Team (Late st Contact Info) Description 08/01/2025 10:00 AM EDT Appointment [facility] Interventional Radiology [address] [place] [address] 08/01/2025 11:00 AM EDT Appointment [facility] Interventional Radiology [address] [place] [address] 08/08/2025 11:15 AM EDT Appointment [facility] Inter[facility] Radiology [address] [place] [address] 08/08/2025 12:15 PM EDT Appointment [facility] Interventional Radiology [address] [place] [address] 2025 10:00 AM EDT Appointment [facility] Interventional Radiology [address] [place] [address] 2025 11:00 AM EDT Appointment [facility] Interventional Radiology [address] [place] [address] 08/20/2025 9:30 AM EDT Clinical Support [facility] [place] [address] [place] [address] 08/20/2025 10:30 AM EDT Social Work [facility] [place] [address] [place] [address] [place] [address] 08/20/2025 11:00 AM EDT Office Visit [facility] [place] [address] [place] [address] Jude Duque MD [address] [place] [address] documented as of this encounter Visit Diagnoses [...] documented as of this encounter Care Teams Wallpaper Hanger Relationship Specialty Start Date End Date Alvarez Zimmer MD [address] [place] [address] PCP - General Family Medicine 12/07/24 Lea Fernando [address] [place] [address] Auto Body Repair Technician Endocrinology 08/29/24 Rachel Ray APRN [address] [place] [address] Nurse Practitioner Gastroenterology 09/24/24 Tamera Isabel LPN VALUE-BASED TRANSFORMATION PROGRAM Licensed Practical Nurse 05/29/25 documented as of this encounter
--- OUTSIDE RECORDS SUMMARY | 2025-07-31 17:27 | XMS_ITS | Encounter Summary ---
Author Organization [facility] Address [address] [place] [address] Care Team Providers Care Gas Meter Mechanic Name Role Phone Lea Fernando Unavailable [phone] Rachel Ray TEACHERS' AIDE Unavailable [phone] Alvarez Zimmer MD Primary Care Provider [phone] Tamera Isabel REEL WORKER Unavailable Unavailabl e Encounter Details Date Type Department Care Team (Late st Contact Info) Description 05/16/2025 Telephone [facility] Endocrinology [address] [place] [phone] [place] [address] Social History Tobacco Use Types Packs/Day Years [...] week 01/10/2025 How often do you attend [facility] or scientologist services? Patient unable to [...] drinks on one occasion? Never 06/05/2025 [facility] of Occupat ional [...] any time in the past 12 m [facility], were you homeless or living [...] drink first t kennedy in the morning (EYE-NEUROLOGY HOSPITALIST) to steady your nerves or to get [...] 2:44 PM EDT Anisha Marino L * Over the past 2 weeks, how [...] Indicated 06/05/2025 2:53 PM EDT Gissel Downey L * If you checked off any problems [...] Appointment [facility] Interventional Radiology [address] [place] [address] 08/01/2025 11:00 AM EDT Appointment [facility] Inter[facility] Radiology [address] [place] [address] 08/08/2025 11:15 AM EDT Appointment [facility] Interventional Radiology [address] [place] [address] 08/08/2025 12:15 PM EDT Appointment [facility]iology [address] [place] [address] 2025 10:00 AM EDT Appointment [facility] Inter[facility] Radiology [address] [place] [address] 2025 11:00 AM EDT Appointment [facility] Inter[facility] Radiology [address] [place] [address] 08/20/2025 9:30 AM EDT Clinical Support [facility] [place] [address] [place] [address] 08/20/2025 10:[address] [facility] [address] [place] [address] Deysi Ortega [place], [place] [phone] 08/20/2025 11:00 AM EDT Office Visit [facility] [address] [place] [address] Jude Duque MD [address] [place] [address] documented as of this encounter [...] as of this encounter Care Teams Gas Meter Mechanic Relationship Specialty Start Date End Date Alvarez Zimmer MD [address] [place] [address] PCP - General Family Medicine 12/07/24 Lea Fernando [address] [facility] [address] [place] [address] Elevator Attendant Endocrinology 08/29/24 Rachel Ray, TEACHERS' AIDE [address] [place] [address] Nurse Practitioner Gastroenterology 09/24/24 Tamera Isabel, REEL WORKER VALUE-BASED TRANSFORMATION PROGRAM Licensed Practical Nurse 05/29/25 documented as of this encounter
--- OUTSIDE RECORDS SUMMARY | 2025-07-31 17:27 | XMS_ITS | Encounter Summary ---
Author Organization [facility] Address [address] [place] [address] Care Team Providers Care Insurance Professional Name Role Phone Lea Fernando Unavailable [phone] Rachel Ray NEEDLEMAKER Unavailable [phone] Alvarez Zimmer MD Primary Care Provider [phone] Tamera Isabel SUPERVISOR OF OFFICIALS Unavailable Unavailabl e Encounter Details Date Type Department Care Team (Late st Contact Info) Description 05/16/2025 Telephone [facility] Endocrinology [address] [place] [phone] [place] [address] Social History Tobacco Use Types Packs/Day Years [...] [facility] you attend [facility] or j[facility]ism services? Patient unable to [...] How often do you attend chur or jainism services? Never 05/29/2025 Do you [...] [facility] of Occupat ional Health - [...] drink first t kennedy in the morning (EYE-BLACKSMITH ASSISTANT) to steady your nerves or to [...] Appointment [facility] Interventional Radiology [address] [place] [address] 08/01/2025 11:00 AM EDT Appointment [facility] Interventional Radiology [address] [place] [address] 08/08/2025 11:15 AM EDT Appointment [facility] Inter[facility] Radiology [address] [place] [address] 08/08/2025 12:15 PM EDT Appointment [facility] Inter[facility] Radiology [address] [place] [address] 2025 10:00 AM EDT Appointment [facility] Inter[facility] Radiology [address] [place] [address] 2025 11:00 AM EDT Appointment [facility] Interventional Radiology [address] [place] [address] 08/20/2025 9:30 AM EDT Clinical Support [facility] [place] [address] [place] [address] 08/20/2025 10:30 AM EDT Social Work [facility] [address] [place] [address] Deysi Ortega [place], [place] [phone] 08/20/2025 11:00 AM EDT Office Visit [facility] [address] [place] [address] Jude Duque MD [address] [place] [address] documented as of this encounter [...] documented as of this encounter Care Teams Insurance Professional Relationship Specialty Start Date End Date Alvarez Zimmer MD [address] [place] [address] PCP - General Family Medicine 12/07/24 Lea Fernando [address] [facility] [address] [place] [address] Reconcilement Clerk Endocrinology 08/29/24 Rachel Ray, NEEDLEMAKER [address] [place] [address] Nurse Practitioner Gastroenterology 09/24/24 Tamera Isabel, SUPERVISOR OF OFFICIALS VALUE-BASED TRANSFORMATION PROGRAM Licensed Practical Nurse 05/29/25 documented as of this encounter
--- OUTSIDE RECORDS SUMMARY | 2025-07-31 17:27 | XMS_ITS | Encounter Summary ---
Author Organization [facility] Address [address] [place] [address] Care Team Providers Care Geology Professor Name Role Phone Lea Fernando Unavailable [phone] Rachel Ray MEDICAL RECORDS MANAGER Unavailable [phone] Alvarez Zimmer MD Primary Care Provider [phone] Tamera Isabel SECURITIES SALES ASSOCIATE Unavailable UnavailAlina Bedolla RN Unavailable Unavailab Monique Che SECURITIES SALES ASSOCIATE Unavailable Unavailable Reason for Visit * Reason Onset Date Comments Med Refill 05/21/2025 Encounter Details Date Type Department Care Team (Late st Contact Info) Description 05/21/2025 Refill [facility] Medicine [address] [place] [address] Alvarez Zimmer MD [address] [place] [address] Social History Tobacco Use Types [...] drink first t kennedy in the morning (EYE-TELEVISION EQUIPMENT OPERATOR) to steady your nerves or to get rid of a hangover? 0 10/22/2024 CAGE Questionnaire Score 0 024 Utilities Answer Date Recorded In the past 12 months has e [employer], gas, oil, or water company threatened to [...] Appointment [facility] Interventional Radiology [address] [place] [address] 08/01/2025 11:00 AM EDT Appointment [facility] Interventional Radiology [address] [place] [address] 08/08/2025 11:15 AM EDT Appointment [facility] Inter[facility] Radiology [address] [place] [address] 08/08/2025 12:15 PM EDT Appointment [facility] Inter[facility] Radiology [address] [place] [address] 2025 10:00 AM EDT Appointment [facility] Inter[facility] Radiology [address] [place] [address] 2025 11:00 AM EDT Appointment [facility] Inter[facility] Radiology [address] [place] [address] 08/20/2025 9:30 AM EDT Clinical Support [facility] [place] [address] [facility] [address] [place] [address] 08/20/2025 10:30 AM EDT Social Work [facility] [place] [address] [facility] [address] [place] [address] Deysi Ortega [place], [place] [id number] 08/20/2025 11:00 AM EDT Office Visit [facility] [place] [address] [address] Jude Duque MD [id number] [place] [address] documented as of this encounter [...] as of this encounter Care Teams Geology Professor Relationship Specialty Start Date End Date Alvarez Zimmer MD [address] [place] [address] PCP - General Family Medicine 12/07/24 Lea Fernando [address] [facility] [address] [place] [address] Tallow Pumper Endocrinology 08/29/24 Rachel Ray APRN [address] [facility] [address] [place] [address] Nurse Practitioner Gastroenterology 09/24/24 Tamera Isabel LPN VALUE-BASED TRANSFORMATION PROGRAM Licensed Practical Nurse 05/29/25 Alina Lovett, RN [facility] INTERVENTIONAL RADIOLOGY Registered Nurse 06/26/25 06/26/25 Monique Tapia LPN VALUE-BASED [place] [address] TCM Nurse 07/10/25 documented as of this encounter
--- OUTSIDE RECORDS SUMMARY | 2025-07-31 17:27 | XMS_ITS ---
Author Organization [facility] Address [address] [place] [address] Care Team Providers Care Head Of Mathematics Name Role Phone Lea Fernando Unavailable [phone] Rachel Ray NOCTURNIST PHYSICIAN Unavailable [phone] Alvarez Zimmer MD Primary Care Provider [phone] Tamera Isabel RECREATION ACTIVITIES COORDINATOR Unavailable Unavailabl Monique Garay RECREATION ACTIVITIES COORDINATOR Unavailable Unavailable LINK Program Status:Closed (Closed) Start date:06/26/2025 Enrollment date:06/26/2025 End date:06/26/2025 Close reason:Not Eligible Overview Patient identified for LINK program. Following chart review, patient determined to be ineligible based on program criteria. (Transplant) Continued Care and Services Coordination
--- OUTSIDE RECORDS SUMMARY | 2025-07-31 17:27 | XMS_ITS | Encounter Summary ---
Author Organization [facility] Address [address] [place] [address] Care Team Providers Care Genetic Counselor Name Role Phone Lea Fernando Unavailable [phone] Rachel Ray UROLOGIC SURGEON Unavailable [phone] Alvarez Zimmer MD Primary Care Provider [phone] Tamera Isabel BLENDER / COOK Unavailable UnavailMonique Marcus BLENDER / COOK Unavailable Unavailable Encounter Details Date Type Department Care Team (Latest Contact Info) Description 07/18/2025 Travel Social History Tobacco Use Types Packs/Day [...] drink first t kennedy in the morning (EYE-CUSTOMS AND BORDER PROTECTION INSPECTOR) to steady your nerves or to [...] Stu Samayoa documented as of this encounter Plan of Treatment Upcoming Encounters Date Type Department Care Team (Late st Contact Info) Description 08/01/2025 10:00 AM EDT Appointment [facility] Interventional Radiology [address] [place] [address] 08/01/2025 11:00 AM EDT Appointment [facility] Interventional Radiology [address] [place] [address] 08/08/2025 11:15 AM EDT Appointment [facility] Interventional Radiology [address] [place] [address] 08/08/2025 12:15 PM EDT Appointment [facility] Interventional Radiology [address] [place] [address] 2025 10:00 AM EDT Appointment [facility] Interventional Radiology [address] [place] [address] 2025 11:00 AM EDT Appointment [facility] Interventional Radiology [address] [place] [address] 08/20/2025 9:30 AM EDT Clinical Support [facility] [place] [address] [place] [address] 08/20/2025 10:[address] [facility] [place] [address] [place] [address] [place] [address] 08/20/2025 11:00 AM EDT Office Visit [facility] [place] [address] [place] [address] Jude Duque MD [address] [place] [address] documented as of this encounter Visit Diagnoses [...] documented as of this encounter Care Teams Genetic Counselor Relationship Specialty Start Date End Date Alvarez Zimmer MD [address] [place] [address] PCP - General Family Medicine 12/07/24 Lea Fernando [address] [place] [address] Vending Supervisor Endocrinology 08/29/24 Rachel Ray APRN [address] [place] [address] Nurse Practitioner Gastroenterology 09/24/24 Tamera Isabel LPN VALUE-BASED TRANSFORMATION PROGRAM Licensed Practical Nurse 05/29/25 Monique Tapia LPN VALUE-BASED [place] [address] TCM Nurse 07/10/25 documented as of this encounter
--- OUTSIDE RECORDS SUMMARY | 2025-07-31 17:27 | XMS_ITS | Encounter Summary ---
Author Organization [facility] Address [address] [place] [address] Care Team Providers Care Customer Service Dispatcher Name Role Phone Lea Fernando Unavailable [phone] Rachel Ray DIVING SUPERVISOR Unavailable [phone] Alvarez Zimmer MD Primary Care Provider Tamera Isabel PRODUCTION STAGE MANAGER Unavailable Unavailabl Monique Garay PRODUCTION STAGE MANAGER Unavailable Unavailable Reason for Visit * Reason Comments TCM Encounter Details Date Type Department Care Team (Late st Contact Info) Description 07/19/2025 Patient Outreach [facility] [address] [facility], [address] [place] [address] Jeaneth Oscar LPN TCM Social History Tobacco Use Types Packs/Day Years [...] How often do you attend [facility] or mormonism services? Patient unable to answer 01/10/2025 Do you belong to any clubs o r organizations such as temple groups, [employer], [employer] or athletic groups, or school groups? Patient [...] you attend chur ch or mormonism services? Never 05/29/2025 Do you belong to any clubs o r organizations such as temple groups, unions, fraternal or athletic groups, or [...] more drinks on one occasion? Never 06/25/2025 [facility] of Occupat ional [facility] - Occupational Stress Questionnaire Answer Date Recorded [...] [facility] in the [facility], were you homeless or living in a halfway (including now)? No 06/26/2025 CAGE ASSESSMENT Answer [...] drink first t kennedy in the morning (EYE-RESTAURANT SUPERVISOR) to steady your nerves or to [...] encounter Miscellaneous Notes * Progress Notes - Jeaneth Oscar LPN - 07/19/2025 2:59 PM EDT 07/19/2025 TCM Follow-up Call Patient reached: Yes Outcome: Patient notified to see if she was still in the [facility] and she stated yes, and she doesn't know when she will be discharged as of yet but states I'm ready to go home. Patient also stated that appointment with Dr. Zimmer was cancelled by rehab center and once she is released she will call and reschedule it. Action: N/A documented in this encounter Plan of Treatment Upcoming Encounters Date Type Department Care Team (Late st Contact Info) Description 08/01/2025 10:00 AM EDT Appointment [facility] Interventional Radiology [address] [place] [address] 08/01/2025 11:00 AM EDT Appointment [facility] Interventional Radiology [address] [place] [address] 08/08/2025 11:15 AM EDT Appointment [facility] Interventional Radiology [address] [place] [address] 08/08/2025 12:15 PM EDT Appointment [facility] Interventional Radiology [address] [place] [address] 2025 10:00 AM EDT Appointment [facility] Interventional Radiology [address] [place] [address] 2025 11:00 AM EDT Appointment [facility] Interventional Radiology [address] [place] [address] 08/20/2025 9:30 AM EDT Clinical Support [facility] [place] [address] [place] [address] 08/20/2025 10:[address] [facility] [place] [address] [place] [address] [place] [address] 08/20/2025 11:00 AM EDT Office Visit [facility] [place] [address] [place] [address] Jude Duque MD [address] [place] [address] documented as of this encounter Visit Diagnoses [...] as of this encounter Care Teams Customer Service Dispatcher Relationship Specialty Start Date End Date Alvarez Zimmer MD [address] [place] [address] PCP - General Family Medicine 12/07/24 Lea Fernando [address] [place] [address] Cancer Program Director Endocrinology 08/29/24 Rachel Ray APRN [address] [place] [address] Nurse Practitioner Gastroenterology 09/24/24 Tamera Isabel LPN VALUE-BASED TRANSFORMATION PROGRAM Licensed Practical Nurse 05/29/25 Monique Tapia LPN VALUE-BASED [place] [address] TCM Nurse 07/10/25 documented as of this encounter
--- OUTSIDE RECORDS SUMMARY | 2025-07-31 17:28 | XMS_ITS | Encounter Summary ---
Author Organization [facility] Address [address] [place] [address] Care Team Providers Care General Lithographic Worker Name Role Phone Lea Fernando Unavailable [phone] Rachel Ray NURSING EDUCATOR Unavailable [phone] Alvarez Zimmer MD Primary Care Provider [phone] Tamera Isaebl LPN Unavailable Unavailabl e Monique Tapai LPN Unavailable Unavailable Reason for Visit * Reason Comments TCM Encounter Details Date Type Department Care Team (Late st Contact Info) Description 07/10/2025 Patient Outreach POPULATION HEALTH [address] [facility], [address] [place] [address] Monique Tapia LPN VALUE-[place] [address] [facility] Social History Tobacco Use Types Packs/Day Years [...] o r organizations such as evangelical groups, [employer], [employer] or athletic groups, or school groups? Patient [...] r organizations such as evangelical groups, unions, [employer] or athletic groups, or school groups? No [...] more drinks on one occasion? Never 06/25/2025 [facility] - Occupational Stress Questionnaire Answer Date [...] living in a retirement (including now)? No 06/26/2025 CAGE ASSESSMENT Answer [...] drink first t kennedy in the morning (EYE-VALVE REPAIRER RECLAMATION) to steady your nerves or to get [...] encounter Miscellaneous Notes * Progress Notes - Monique Tapia LPN - 07/10/2025 8:06 AM EDT Admit Date: 06/25/2025 Discharge Date: 07/09/2025 to [facility] in [facility] Service: [facility] Discharge Diagnosis: Cirrhosis of liver with ascites 07/10/2025 TCM call # 1 Patient Reached: N Outcome: No [facility]LE[facility] nurse call placed due to patient discharged to [facility] in [place] on 07/09/2025. Action: Follow up task placed on 07/19/2025 due to patient has [facility] appointment scheduled on 07/23/2025 at 12:00pm with Dr. Zimmer. See if patient has discharged. Medication changes per discharge summary: START taking: benzonatate (Tessalon) 100mg TID PRN bisacodyl (Dulcolax) 10mg suppository q day PRN carboxymethylcellulose PF (Refresh Plus) 0.5% 1 drop both eyes PRN hydrOXYzine HCl (Atarax) 25mg take 0.5tablets q HS PRN insulin glargine-yfgn 100u/ml inject 24 units q day insulin lispro (Admelog) 100u/ml lidocaine (Lidoderm) melatonin polyethylene glycol (Miralax) senna (Senokot) CHANGE how you take: midodrine (Proamatine) PAUSE taking: Tymlos 3120 MCG/1.56ML solution peninjector (Abaloparatide) Zegalogue 0.6 MG/0.6ML solution autoinjector (Dasiglucagon HCl) STOP taking: insulin aspart 100 UNIT/ML injection vial (NovoLOG) Lantus SoloStar 100 UNIT/ML injection pen (insulin glargine) KLEBER appointment: 07/23/2025 at 12:00pm with Dr. Zimmer Items to address at KLEBER: N/A documented in this encounter Plan of Treatment Upcoming Encounters Date Type Department Care Team (Late st Contact Info) Description 08/01/2025 10:00 AM EDT Appointment [facility] Interventional Radiology [address] [place] [address] 08/01/2025 11:00 AM EDT Appointment [facility] Interventional Radiology [address] [place] [address] 08/08/2025 11:15 AM EDT Appointment [facility] Interventional Radiology [address] [place] [address] 08/08/2025 12:15 PM EDT Appointment [facility] Interventional Radiology [address] [place] [address] 2025 10:00 AM EDT Appointment [facility] Interventional Radiology [address] [place] [address] 2025 11:00 AM EDT Appointment [facility] Interventional Radiology [address] [place] [address] 08/20/2025 9:30 AM EDT Clinical Support [facility] [place] [address] [facility] [address] [place] [address] 08/20/2025 10:30 AM EDT Social Work [facility] [place] [address] [facility] [address] [place] [address] [place] [address] 08/20/2025 11:00 AM EDT Office Visit [facility] [place] [address] [facility] [address] [place] [address] Jude Duque MD [address] [place] [address] documented as of this encounter [...] documented as of this encounter Care Teams General Lithographic Worker Relationship Specialty Start Date End Date Alvarez Zimmer MD [address] [place] [address] PCP - General Family Medicine 12/07/24 Lea Fernando [address] [facility] 125 [place] [address] Bat Lathe Operator Endocrinology 08/29/24 Rachel Ray, NURSING EDUCATOR [address] [facility] [address] [place] [address] Nurse Practitioner Gastroenterology 09/24/24 Tamera Isabel LPN VALUE-BASED TRANSFORMATION PROGRAM Licensed Practical Nurse 05/29/25 Monique Tapia, MG VALUE-[place] [address] TCM Nurse 07/10/25 documented as of this encounter
--- OUTSIDE RECORDS SUMMARY | 2025-07-31 17:28 | XMS_ITS | Encounter Summary ---
Author Organization [facility] Address [address] [place] [address] Care Team Providers Care Grass Cutter Name Role Phone Lea Fernando Unavailable [phone] Rachel Ray DESIZING MACHINE OPERATOR Unavailable [phone] Alvarez Zimmer MD Primary Care Provider [phone] Tamera Isabel LOSS CONTROL REPRESENTATIVE Unavailable UnavailMonique Marcus LOSS CONTROL REPRESENTATIVE Unavailable Unavailable Encounter Details Date Type Department Care Team (Latest Contact Info) Description 07/24/2025 Travel Social History Tobacco Use Types Packs/Day [...] you attend chur ch or jain services? Patient unable to answer [...] How often do you attend chur or jain services? Never 05/29/2025 Do you [...] any time in the past 12 m [facility], were you homeless or living in a senior living (including now)? No 06/26/2025 CAGE ASSESSMENT Answer [...] drink first t kennedy in the morning (EYE-CUSTOMER ACCOUNT EXECUTIVE) to steady your nerves or to [...] Appointment [facility] Interventional Radiology [address] [place] [address] 08/01/2025 11:00 AM EDT Appointment [facility] Interventional Radiology [address] [place] [address] 08/08/2025 11:15 AM EDT Appointment [facility] Interventional Radiology [address] [place] [address] 08/08/2025 12:15 PM EDT Appointment [facility] Interventional Radiology [address] [place] [address] 2025 10:00 AM EDT Appointment [facility] Interventional Radiology [address] [place] [address] 2025 11:00 AM EDT Appointment [facility] Interventional Radiology [address] [place] [address] 08/20/2025 9:30 AM EDT Clinical Support [facility] [address] [facility] [address] [place] [address] 08/20/2025 10:[address] [facility] [place] [address] [facility] [address] [place] [address] Deysi Orte[address] [place], [place] [address] 08/20/2025 11:00 AM EDT Office Visit [facility] [place] [address] [facility] [address] [place] [address] Jude Duque MD [phone] [place] [address] documented as of this encounter [...] documented as of this encounter Care Teams Grass Cutter Relationship Specialty Start Date End Date Alvarez Zimmer MD [address] [place] [address] PCP - General Family Medicine 12/07/24 Lea Fernando [address] [facility] 125 [place] [phone] Seam Closer Endocrinology 08/29/24 aRchel Ray APRN [phone] [place] [address] Nurse Practitioner Gastroenterology 09/24/24 Tamera Isabel LPN VALUE-BASED TRANSFORMATION PROGRAM Licensed Practical Nurse 05/29/25 Monique Tapia LPN VALUE-[place] [address] TCM Nurse 07/10/25 documented as of this encounter
--- OUTSIDE RECORDS SUMMARY | 2025-07-31 17:28 | XMS_ITS | Encounter Summary ---
Author Organization [facility] Address [address] [place] [address] Care Team Providers Care Video Production Intern Name Role Phone Lea Fernando Unavailable [phone] Rachel Ray RECONSTRUCTIVE DENTIST Unavailable [phone] Alvarez Zimmer MD Primary Care Provider [phone] Tamera Isabel FAMILY SERVICE COUNSELOR Unavailable UnavailMonique Marcus FAMILY SERVICE COUNSELOR Unavailable Unavailable Encounter Details Date Type Department Care Team (Latest Contact Info) Description 07/31/2025 Travel Social History Tobacco Use Types Packs/Day [...] one occasion? Never 06/25/2025 [facility] Occupat ional [facility] - [...] living in a correction (including now)? No 06/26/2025 CAGE ASSESSMENT Answer [...] drink first t kennedy in the morning (EYE-CANDLEMAKER) to steady your nerves or to get [...] [facility] Interventional Radiology [address] [place] [address] 08/01/2025 11:00 AM EDT Appointment [facility] Inter[facility] Radiology [address] [place] [address] 08/08/2025 11:15 AM EDT Appointment [facility] Radiology [address] [place] [address] 08/08/2025 12:15 PM EDT Appointment [facility] Radiology [address] [place] [address] 2025 10:00 AM EDT Appointment [facility] Inter[facility] Radiology [address] [place] [address] 2025 11:00 AM EDT Appointment [facility] Interventional Radiology [address] [place] [address] 08/20/2025 9:30 AM EDT Clinical Support [facility] [address] [facility] [address] [place] [address] 08/20/2025 10:30 AM EDT Social Work [facility] [place] [address] [facility] [address] [place] [address] Deysi Ortega [place], [place] [id number] 08/20/2025 11:00 AM EDT Office Visit [facility] [place] [address] [facility] [address] [place] [address] Jude Duque MD [id number] [place] [address] documented as of this encounter [...] documented as of this encounter Care Teams Video Production Intern Relationship Specialty Start Date End Date Alvarez Zimmer MD [address] [place] [phone] PCP - General Family Medicine 12/07/24 Lea Fernando [address] [facility] [address] [place] [phone] Marking Devices Assembler Endocrinology 08/29/24 Rachel Ray APRN [id number] [place] [address] Nurse Practitioner Gastroenterology 09/24/24 Tamera Isabel LPN VALUE-BASED TRANSFORMATION PROGRAM Licensed Practical Nurse 05/29/25 Monique Tapia LPN VALUE[place] [address] TCM Nurse 07/10/25 documented as of this encounter
--- OUTSIDE RECORDS SUMMARY | 2025-07-31 17:28 | XMS_ITS | Encounter Summary ---
Author Organization [facility] Address [address] [place] [address] Care Team Providers Care Court Security Officer Name Role Phone Lea Fernando Unavailable [phone] Rachel Ray RESIDENTIAL DIRECTOR Unavailable [phone] Alvarez Zimmer MD Primary Care Provider [phone] Tamera Isabel LPN Unavailable Unavailabl e Encounter Details Date Type Department Care Team (Latest Contact Info) Description 07/04/2025 Travel Social History Tobacco Use Types Packs/Day [...] you attend chur ch or evangelical services? Patient unable to answer [...] week 05/29/2025 How often do you attend [facility] or evangelical services? Never 05/29/2025 Do you [...] more drinks on one occasion? Never 06/25/2025 [facility] of Occupat ional [facility] - Occupational Stress Questionnaire Answer Date Recorded [...] drink first t kennedy in the morning (EYE-SPEECH THERAPIST) to steady your nerves or to get [...] Date of Assessment Author No Risk Indicated 07/04/2025 8:00 PM EDT Rochelle Rajan i, LPN * Question Answer Date of Assessment Author 1. Wish to be (Past 1 Month) No 07/04/2025 8:00 PM EDT Rochelle Xiong LPN 2. Non-Specific Active Suici liz Thoughts (Past 1 Month) No 07/04/2025 8:00 PM EDT Mikey Xiong LPN 6. Suicidal Behavior (Lifetime) No 8:00 PM EDT Rochelle Xiong LPN documented as of this encounter Plan of Treatment Upcoming Encounters Date Type Department Care Team (Late st Contact Info) Description 08/01/2025 10:00 AM EDT Appointment [facility] Interventional Radiology [address] [place] [address] 08/01/2025 11:00 AM EDT Appointment [facility] Interventional Radiology [address] [place] [address] 08/08/2025 11:15 AM EDT Appointment P[facility] A Interventional Radiology [address] [place] [facility] [place] [address] 08/08/2025 12:15 PM EDT Appointment [facility] Interventional Radiology [address] [place] [address] 2025 10:00 AM EDT Appointment [facility] Interventional Radiology [address] [place] [address] 2025 11:00 AM EDT Appointment [facility] Interventional Radiology [address] [place] [address] 08/20/2025 9:30 AM EDT Clinical Support [facility] [place] [address] [place] [address] 08/20/2025 10:[address] [facility] [place] [address] [place] [address] Deysi Ortega [place], [place] [id number] 08/20/2025 11:00 AM EDT Office Visit [facility] [place] [address] [place] [address] Jude Duque MD [address] [place] [address] documented as of this encounter Visit Diagnoses [...] documented as of this encounter Care Teams Court Security Officer Relationship Specialty Start Date End Date Alvarez Zimmer MD [address] [place] [phone] PCP - General Family Medicine 12/07/24 Lea Fernando [address] [place] [address] Sustainability Coach Endocrinology 08/29/24 Rachel Ray APRN [address] [place] [address] Nurse Practitioner Gastroenterology 09/24/24 Tamera Isabel LPN VALUE-BASED TRANSFORMATION PROGRAM Licensed Practical Nurse 05/29/25 documented as of this encounter
--- OUTSIDE RECORDS SUMMARY | 2025-07-31 17:28 | XMS_ITS | Encounter Summary ---
Author Organization [facility] Address [address] [place] [address] Care Team Providers Care Block Handler Name Role Phone Lea Fernando Unavailable [phone] Rachel Ray COMMUNITY HEALTH COUNSELOR Unavailable [phone] Alvarez Zimmer MD Primary Care Provider [phone] Tamera Isabel LPN Unavailable Unavailabl e Encounter Details Date Type Department Care Team (Latest Contact Info) Description 07/03/2025 Travel Social History Tobacco Use Types Packs/Day [...] you attend [facility] or mu-ism services? Never 05/29/2025 Do you belong to [...] more drinks on one occasion? Never 06/25/2025 [facility] of Occupat ional [facility] - Occupational Stress Questionnaire Answer Date [...] time in the past 12 m [facility], were you homeless or living in [...] drink first t kennedy in the morning (EYE-HIGHWAY MAINTAINER) to steady your nerves or to get [...] Date of Assessment Author No Risk Indicated 07/03/2025 8:45 PM EDT Bia Carrillo * Question Answer Date of Assessment Author 1. Wish to be (Past 1 Month) No 025 8:45 PM EDT Bia Carrillo 2. Non-Specific Active Suici liz Thoughts (Past 1 Month) No 07/03/2025 8:45 PM EDT Yoli Carrillo nt 6. Suicidal Behavior (Lifetime) No 8:45 PM EDT Bia Carrillo documented as of this encounter Plan of Treatment Upcoming Encounters Date Type Department Care Team (Late st Contact Info) Description 08/01/2025 10:00 AM EDT Appointment [facility] Interventional Radiology [address] [place] [address] 08/01/2025 11:00 AM EDT Appointment P[facility] A Interventional Radiology [address] [place] [address] 08/08/2025 11:15 AM EDT Appointment [facility] Interventional Radiology [address] [place] [address] 08/08/2025 12:15 PM EDT Appointment [facility] Interventional Radiology [address] [place] [address] 2025 10:00 AM EDT Appointment [facility] A Interventional Radiology [address] [place] [address] 2025 11:00 AM EDT Appointment [facility] Interventional Radiology [address] [place] [address] 08/20/2025 9:30 AM EDT Clinical Support [facility] [place] [address] [place] [address] 08/20/2025 10:30 AM EDT Social Work [facility] [place] [address] [place] [address] Deysi Ortega [place], [place] [phone] 08/20/2025 11:00 AM EDT Office Visit [facility] [place] [address] [place] [address] Jude Duque MD [address] [place] [address] documented as of this encounter Visit Diagnoses [...] documented as of this encounter Care Teams Block Handler Relationship Specialty Start Date End Date Alvarez Zimmer MD [address] [place] [phone] PCP - General Family Medicine 12/07/24 Lea Fernando [address] [facility] 125 [place] [phone] Schedule Planning Manager Endocrinology 08/29/24 Rachel Ray APRN [address] [facility] [address] [place] [phone] Nurse Practitioner Gastroenterology 09/24/24 Tamera Isabel LPN VALUE-BASED TRANSFORMATION PROGRAM Licensed Practical Nurse 05/29/25 documented as of this encounter
--- OUTSIDE RECORDS SUMMARY | 2025-07-31 17:28 | XMS_ITS | Encounter Summary ---
Author Organization [facility] Address [address] [place] [address] Care Team Providers Care Tobacco Primer Machine Operator Name Role Phone NaseemVivTor Lea Clarke Unavailable [phone] Rachel Ray MAIL ORDER CLERK Unavailable [phone] Alvarez Zimmer MD Primary Care Provider [phone] Tamera Isabel TECHNICAL MARKETING ENGINEER Unavailable Unavailabl e Alina Lovett RN Unavailable Unavailab le Reason for Visit * Reason Comments Link Encounter Details Date Type Department Care Team (Late st Contact Info) Description 06/26/2025 Patient Outreach [facility] [address] [facility], [address] [place] [address] Alina Lovett, RN CH-VASCULAR & INTERVENTIONAL RADIOLOGY Link Social History Tobacco Use Types Packs/Day Years [...] week 01/10/2025 How often do you attend [facility] or denominational services? Patient unable to answer 01/10/2025 Do you belong to any clubs o r organizations such as zoroastrianism groups, unions, [employer] or athletic groups, or school groups? Patient [...] drinks on one occasion? Never 06/25/2025 [facility] - Occupational Stress Questionnaire Answer Date Recorded [...] drink first t kennedy in the morning (EYE-GRADES 9 THRU 12 VISITING TEACHER) to steady your nerves or to [...] encounter Miscellaneous Notes * Progress Notes - Alina Lovett, RN - 06/26/2025 10:31 AM EDT Patient identified for LINK program. Following chart review, patient determined to be ineligible based on program criteria. documented in this encounter Plan of Treatment Upcoming Encounters Date Type Department Care Team (Late st Contact Info) Description 08/01/2025 10:00 AM EDT Appointment [facility] A Interventional Radiology [address] [place] [address] 08/01/2025 11:00 AM EDT Appointment [facility] A Interventional Radiology [address] [place] [address] 08/08/2025 11:15 AM EDT Appointment [facility] A Interventional Radiology [address] [place] [address] 08/08/2025 12:15 PM EDT Appointment [facility] A Interventional Radiology [address] [place] [address] 2025 10:00 AM EDT Appointment [facility] A Interventional Radiology [address] [place] [address] 2025 11:00 AM EDT Appointment P[facility] A Interventional Radiology [address] [place] [address] 08/20/2025 9:30 AM EDT Clinical Support [facility] [place] [address] [place] [address] 08/20/2025 10:30 AM EDT Social Work [facility] [place] [address] [place] [address] Deysi Ortega [place], [place] [id number] 08/20/2025 11:00 AM EDT Office Visit [facility] [place] [address] [place] [address] Jude Duque MD [address] [place] [address] documented as of this encounter Visit Diagnoses [...] documented as of this encounter Care Teams Tobacco Primer Machine Operator Relationship Specialty Start Date End Date Alvarez Zimmer MD [address] [place] [phone] PCP - General Family Medicine 12/07/24 Lea Fernando [address] [place] [phone] Diagnostic Imaging Manager Endocrinology 08/29/24 Rachel Ray, MAIL ORDER CLERK [address] [place] [address] Nurse Practitioner Gastroenterology 09/24/24 Tamera Isabel, MG VALUE-BASED TRANSFORMATION PROGRAM Licensed Practical Nurse 05/29/25 Alina Lovett, RN CH-VASCULAR & INTERVENTIONAL RADIOLOGY Registered Nurse 06/26/25 06/26/25 documented as of this encounter
--- OUTSIDE RECORDS SUMMARY | 2025-07-31 17:28 | XMS_ITS | Encounter Summary ---
Author Organization [facility] Address [address] [place] [address] Care Team Providers Care Filter Press Pumper Name Role Phone Lea Fernando Unavailable [phone] Rachel Ray EXHAUST WORKER Unavailable [phone] Alvarez Zimmer MD Primary Care Provider [phone] Tamera Isabel VENDING MACHINE COLLECTOR Unavailable UnavailMonique Marcus VENDING MACHINE COLLECTOR Unavailable Unavailable Encounter Details Date Type Department Care Team (Latest Contact Info) Description 07/25/2025 Travel Social History Tobacco Use Types Packs/Day [...] drink first t kennedy in the morning (EYE-TUBE CUTTER) to steady your nerves or to [...] Appointment [facility] Interventional Radiology [address] [place] [address] 08/01/2025 11:00 AM EDT Appointment P[facility] A Interventional Radiology [address] [place] [address] 08/08/2025 11:15 AM EDT Appointment [facility] A Interventional Radiology [address] [place] [address] 08/08/2025 12:15 PM EDT Appointment [facility] Interventional Radiology [address] [place] [address] 2025 10:00 AM EDT Appointment P[facility] A Interventional Radiology [address] [place] [address] 2025 11:00 AM EDT Appointment [facility] A Interventional Radiology [address] [place] [address] 08/20/2025 9:30 AM EDT Clinical Support [facility] Trans[facility] [address] [place] [address] 08/20/2025 10:30 AM EDT Social Work [facility] [place] [address] [place] [address] Deysi Ortega [place], [place] [address] 08/20/2025 11:00 AM EDT Office Visit [facility] [place] [address] [place] [address] Jude Duque MD [id number] [place] [address] documented as of this encounter [...] documented as of this encounter Care Teams Filter Press Pumper Relationship Specialty Start Date End Date Alvarez Zimmer MD [address] [place] [phone] PCP - General Family Medicine 12/07/24 Lea Fernando [address] [facility] 125 [place] [phone] Retail Loss Prevention Officer Endocrinology 08/29/24 Rachel Ray APRN [phone] [place] [address] Nurse Practitioner Gastroenterology 09/24/24 Tamera Isabel LPN VALUE-BASED TRANSFORMATION PROGRAM Licensed Practical Nurse 05/29/25 Monique Tapia LPN VALUE[place] [address] TCM Nurse 07/10/25 documented as of this encounter
--- OUTSIDE RECORDS SUMMARY | 2025-07-31 17:28 | XMS_ITS | Encounter Summary ---
Author Organization [facility] Address [address] [place] [address] Care Team Providers Care Bulb Grower Name Role Phone Lea Fernando Unavailable [phone] Rachel Ray RAG SHREDDER Unavailable [phone] Alvarez Zimmer MD Primary Care Provider [phone] Tamera Isabel LPN Unavailable Unavailabl e Encounter Details Date Type Department Care Team (Latest Contact Info) Description 06/27/2025 Travel Social History Tobacco Use Types Packs/Day [...] 05/29/2025 How often do you attend [facility] or scientologist services? Never 05/29/2025 Do you [...] more drinks on one occasion? Never 06/25/2025 [facility] of Occupat ional [facility] - Occupational Stress Questionnaire Answer [...] drink first t kennedy in the morning (EYE-MARKET RESEARCH ANALYST) to steady your nerves or to [...] Date of Assessment Author No Risk Indicated 06/27/2025 8:00 PM EDT Bia Carrillo * Question Answer Date of Assessment Author 1. Wish to be (Past 1 Month) No 025 8:00 PM EDT Bia Carrillo 2. Non-Specific Active Suici liz Thoughts (Past 1 Month) No 06/27/2025 8:00 PM EDT Yoli Carrillo nt 6. Suicidal Behavior (Lifetime) No 8:00 PM EDT Bia Carrillo documented as of this encounter Plan of Treatment Upcoming Encounters Date Type Department Care Team (Late st Contact Info) Description 08/01/2025 10:00 AM EDT Appointment [facility] A Interventional Radiology [address] [place] [address] 08/01/2025 11:00 AM EDT Appointment [facility] A Interventional Radiology [address] [place] [address] 08/08/2025 11:15 AM EDT Appointment P[facility] A Interventional Radiology [address] [place] [address] 08/08/2025 12:15 PM EDT Appointment P[facility] A Interventional Radiology [address] [place] [address] 2025 10:00 AM EDT Appointment P[facility] A Interventional Radiology [address] [place] [address] 2025 11:00 AM EDT Appointment P[facility] A Interventional Radiology [address] [place] [address] 08/20/2025 9:30 AM EDT Clinical Support [facility] [place] [address] [place] [address] 08/20/2025 10:30 AM EDT Social Work [facility] [place] [address] [place] [address] Deysi Ortega [place], [place] [id number] 08/20/2025 11:00 AM EDT Office Visit [facility] [place] [address] [place] [address] Jude Duque MD [address] [place] [address] documented as of this encounter Visit Diagnoses [...] documented as of this encounter Care Teams Bulb Grower Relationship Specialty Start Date End Date Alvarez Zimmer MD [address] [place] [phone] PCP - General Family Medicine 12/07/24 Lea Fernando [address] [facility] 125 [place] [phone] Willow Analyst Endocrinology 08/29/24 Rachel Ray APRN [address] [facility] [address] [place] [phone] Nurse Practitioner Gastroenterology 09/24/24 Tamera Isabel LPN VALUE-BASED TRANSFORMATION PROGRAM Licensed Practical Nurse 05/29/25 documented as of this encounter
--- OUTSIDE RECORDS SUMMARY | 2025-07-31 17:30 | XMS_ITS | Encounter Summary ---
Author Organization [facility] Address [facility] [place] [address] Care Team Providers Care Pipe Fitter [address] Service Name Role Phone Lea Fernando Unavailable [phone] Rachel Ray WIRE SPIRAL BINDER Unavailable [phone] Alvarez Zimmer MD Primary Care Provider [phone] Tamera Isabel CHISELER HEAD Unavailable Unavailabl e Reason for Visit * Reason Comments Med Refill Encounter Details Date Type Department Care Team (Late st Contact Info) Description 07/07/2025 Refill [facility] [address] [place] [address] Lisa Acuna, WIRE SPIRAL BINDER, DNP [address] [place] [address] ETD (Eustachian tube dysfunction), bilateral Social History Tobacco Use Types Packs/Day Years [...] often do you attend chur ch or baptism services? Patient unable to answer 01/10/2025 Do you belong to any clubs o r organizations such as judaism groups, [employer], [employer] or athletic groups, or school groups? Patient [...] often do you attend chur ch or baptism services? Never 05/29/2025 Do you belong to any clubs o r organizations such as judaism groups, unions, Degree Controlsternal or athletic groups, or school groups? No [...] more drinks on one occasion? Never 06/25/2025 [facility] of Occupat ional Health - Occupational Stress [...] living in a assisted (including now)? No 06/26/2025 CAGE ASSESSMENT Answer [...] drink first t kennedy in the morning (EYE-MOBILE DEVICE DEVELOPER) to steady your nerves or to get rid of a hangover? 0 06/25/2025 CAGE Questionnaire Score 0 025 Utilities Answer Date Recorded In the past 12 months has th [employer] electric, gas, oil, or water company threatened [...] Date of Assessment Author No Risk Indicated 07/08/2025 8:00 PM EDT Felecia Ruiz * Question Answer Date of Assessment Author 1. Wish to be (Past 1 Month) No 025 8:00 PM EDT Felecia Khanna 2. Non-Specific Active Suici liz Thoughts (Past 1 Month) No 07/08/2025 8:00 PM EDT Felecia Khanna 6. Suicidal Behavior (Lifetime) No 8:00 PM TAMMYT Felecia Khanna documented as of this encounter Miscellaneous Notes * Telephone Encounter - Criselda Chong, PharmD - 07/09/2025 11:53 AM EDT 1 medication(s) has been approved per protocol. Please keep upcoming appointment 07/23/25 for additional refills. Medications have been pended for refill at upcoming appointment. documented in this encounter Plan of Treatment Upcoming Encounters Date Type Department Care Team (Late st Contact Info) Description 08/01/2025 10:00 AM EDT Appointment [facility] A Interventional Radiology [address] [place] [address] 08/01/2025 11:00 AM EDT Appointment [facility] Interventional Radiology [address] [place] [address] 08/08/2025 11:15 AM EDT Appointment [facility] A Interventional Radiology [address] [place] [address] 08/08/2025 12:15 PM EDT Appointment [facility] Interventional Radiology [address] [place] [address] 2025 10:00 AM EDT Appointment [facility] Interventional Radiology [address] [place] [address] 2025 11:00 AM EDT Appointment [facility] Interventional Radiology [address] [place] [address] 08/20/2025 9:30 AM EDT Clinical Support [facility] [place] [address] [place] [address] 08/20/2025 10:30 AM EDT Social Work [facility] [place] [address] [place] [address] [place] [address] 08/20/2025 11:00 AM EDT Office Visit [facility] [place] [address] [place] [address] Jude Duque MD [address] [place] [address] documented as of this encounter Visit Diagnoses Diagnosis ETD (Eustachian tube dysfunction), bilateral documented in this encounter Additional Health Concerns Assessment Noted Time PHQ-9 Depression Total Score: 6 06/11/20 10:59 AM EDT A fall risk assessment has been complete d for the patient 06/25/2025 12:59 PM EDT A Body Mass Index follow-up plan has been documented for the patient 07/09/2025 10:39 AM EDT documented as of this encounter Care Teams Pipe Fitter Street Service Relationship Specialty Start Date End Date Alvarez Zimmer MD [address] [place] [address] PCP - General Family Medicine 12/07/24 Lea Fernando [address] [facility] [address] [place] [address] Associate Professor Of Chemistry Endocrinology 08/29/24 Rachel Ray, WIRE SPIRAL BINDER [address] [facility] [address] [place] [address] Nurse Practitioner Gastroenterology 09/24/24 Tamera Isabel LPN VALUE-BASED TRANSFORMATION PROGRAM Licensed Practical Nurse 05/29/25 documented as of this encounter
--- OUTSIDE RECORDS SUMMARY | 2025-07-31 17:30 | XMS_ITS ---
Author Organization [facility] Address [address] [place] [address] Care Team Providers Care Freight Sales Broker Name Role Phone Lea Fernando Unavailable [phone] Rachel Ray MATCHER LEATHER PARTS Unavailable [phone] Alvarez Zimmer MD Primary Care Provider [phone] Tamera Isabel ASPHALT HEATER TENDER Unavailable UnavailMonique Marcus ASPHALT HEATER TENDER Unavailable Unavailable Transplant Episode Liver Candidate [facility] ([place], [place]) - [facility] waitlisted on 02/19/2025 Marked as Inactive on 05/08/2025 Reason: Candidate Workup Incomplete Liver CoordinatorWilma Arana RN Fax: N/A Email: N/A Scores Score Value Updated Expires Exceptions/Beecher sons CPRA Not available MELD (Calc) 21 07/09/2025 [place] Organ Diagnosis Organ Primary Contributory 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) Care Team Name Role Phone Fax Email Wilma Arana RN Liver Coordinator [phone] N/A N/A Lea Reilly LCSW Casino Manager [phone] N/A N/A Gerson Arora MD Surgeon [phone] N/A Wilma Howard APRN Primary Care Provider [phone] N/A Rachel Ray APRN Referring Physician [phone] N/A Events Pre-Transplant Referred: 09/24/2024 Evaluation began: 10/08/2024 Committee: 01/28/2025 Center waitlisted: 02/19/2025 Appointments (06/30/2025 - 08/30/2025) When With Visit Type Description 08/20/2025 Transplant - Yazmin Ortega oryazmin - Office Visit 08/20/2025 Transplant LAB 08/20/2025 Transplant - Dixon Duque Office V isit - Transplant
--- OUTSIDE RECORDS SUMMARY | 2025-07-31 17:30 | XMS_ITS | Encounter Summary ---
Author Organization [facility], [facility] Address [address] [place] [address] Phone Care Team Providers Care Resort Keeper Name Role Phone Taina Lyles Primary Care Provider [phone] Reason for Visit * Reason Comments Med Refill Encounter Details Date Type Department Care Team (Late st Contact Info) Description 10/17/2021 Refill [facility], [address] [address] [place]vng [place], [place] Social History [...] on filedocumented in this encounter Care Teams Resort Keeper Relationship Specialty Start Date End Date Taina Lyles [address] [place] [address] PCP - General 05/02/23 documented as of this encounter
--- OUTSIDE RECORDS SUMMARY | 2025-07-31 17:30 | XMS_ITS | Encounter Summary ---
Author Organization [facility] Address [facility] [address] Care Team Providers Care Life Insurance Underwriter Name Role Phone Lea Fernando Unavailable [phone] Rachel Ray HAIR BLENDER Unavailable [phone] Alvarez Zimmer MD Primary Care Provider [phone] Tamera Isabel LIQUID LOADER Unavailable UnavailAlina Bedolla RN Unavailable Unavailab Monique Che LIQUID LOADER Unavailable Unavailable Encounter Details Date Type Department Care Team (Late st Contact Info) Description 06/20/2025 Telephone [facility] Medicine [address] [place] [address] Alvarez Zimmer MD [address] [place] [address] Social History Tobacco Use Types [...] o r organizations such as episcopal groups, NorSuns, Wolonge or athletic groups, or school groups? Patient [...] week 05/29/2025 How often do you attend [facility] or denominational services? Never 05/29/2025 Do you belong to any clubs o r organizations such as episcopal groups, NorSuns, Wolonge or athletic groups, or school groups? No [...] more drinks on one occasion? Never 06/25/2025 [facility] of Occupat ional Health - Occupational Stress [...] living in a fci (including now)? No 06/26/2025 CAGE ASSESSMENT Answer [...] drink first t kennedy in the morning (EYE-BANQUET STEWARDESS) to steady your nerves or to get rid of a hangover? 0 06/25/2025 CAGE Questionnaire Score 0 025 Utilities Answer Date Recorded In the past 12 months has th [employer], gas, oil, or water company threatened to [...] Stu Samayoa documented as of this encounter Miscellaneous Notes * Telephone Encounter - Christy Buckley - 06/21/2025 1:55 PM EDT I spoke to patient concerning previous referral to hospice care plus. I did search an there is [facility] Navigators Palliative so I have faxed a [...] go to a facility. Best contact number: [phone] (mobile) Optimal time of day to reach [...] Appointment [facility] Interventional Radiology [address] [place] [address] 08/01/2025 11:00 AM EDT Appointment [facility] Inter[facility] Radiology [address] [place] [address] 08/08/2025 11:15 AM EDT Appointment [facility] Inter[facility] Radiology [address] [place] [address] 08/08/2025 12:15 PM EDT Appointment [facility]iology [address] [place] [address] 2025 10:00 AM EDT Appointment [facility] [address] [place] [address] 2025 11:00 AM EDT Appointment [facility] Inter[facility] Radiology [address] [place] [address] 08/20/2025 9:30 AM EDT Clinical Support [facility] [place] [address] [address] 08/20/2025 10:30 AM EDT Social Work [facility] [place] [address] [place] [address] [place] [address] 08/20/2025 11:00 AM EDT Office Visit [facility] [place] [address] [place] [address] Jude Duque MD [address] [place] [address] documented as of this encounter Visit Diagnoses [...] documented as of this encounter Care Teams Life Insurance Underwriter Relationship Specialty Start Date End Date Alvarez Zimmer MD [address] [place] [address] PCP - General Family Medicine 12/07/24 Lea Fernando [address] [facility] [address] [place] [address] Survey Questionnaire Designer Endocrinology 08/29/24 Rachel Ray, HAIR BLENDER [address] [place] [address] Nurse Practitioner Gastroenterology 09/24/24 Tamera Isabel LPN VALUE-BASED TRANSFORMATION PROGRAM Licensed Practical Nurse 05/29/25 Alina Lovett, RN CH-VASCULAR & INTERVENTIONAL RADIOLOGY Registered Nurse 06/26/25 06/26/25 Monique Tapia LPN VALUE-BASED [place] [address] TCM Nurse 07/10/25 documented as of this encounter
--- OUTSIDE RECORDS SUMMARY | 2025-07-31 17:30 | XMS_ITS | Encounter Summary ---
Author Organization Healthcare Address [address] [place] [address] Care Team Providers Care Local Sales Manager Name Role Phone Lea Fernando Unavailable [phone] Rachel Ray BUILDING CODE INSPECTOR Unavailable [phone] Alvarez Zimmer MD Primary Care Provider [phone] Tamera Isabel FREEZING MACHINE OPERATOR Unavailable Unavailabl e Reason for Referral * Imaging (Routine) - Closed Specialty Diagnoses / Procedures Referred By Eder zhu Referred To Contact Radiology Diagnoses Other ascites Procedures US Guided Abdominal Paracentesis Preeti Andersen APRN [address] [place] [address] Phone: tel: fax: Referral ID Status Reason Start Date Expiration Date Visits Re quested Visits Authorized [id number] Closed 06/20/2025 12/20/2026 1 1 Encounter Details Date Type Department Care Team (Late st Contact Info) Description 06/20/2025 Orders Only [facility] Vascular Interventional Radiology [address] [place] [address] Preeti Andersen APRN [address] [place] [phone] Other ascites (Primary Dx) Social History Tobacco [...] you attend [facility] or yazidism services? Patient unable to [...] drinks on one occasion? Never 06/05/2025 [facility] - Occupational Stress Questionnaire Answer Date [...] first t kennedy in the morning (EYE-FINISHING POWDER PRESS OPERATOR) to steady your nerves or [...] [facility] Interventional Radiology [address] [place] [address] 08/01/2025 11:00 AM EDT Appointment [facility] Inter[facility] Radiology [address] [place] [address] 08/08/2025 11:15 AM EDT Appointment [facility] Inter[facility] Radiology [address] [place] [address] 08/08/2025 12:15 PM EDT Appointment [facility] Inter[facility] Radiology [address] [place] [address] 2025 10:00 AM EDT Appointment [facility]iology [address] [place] [address] 2025 11:00 AM EDT Appointment [facility] Inter[facility] Radiology [address] [place] [address] 08/20/2025 9:30 AM EDT Clinical Support [facility] [place] [address] [place] [address] 08/20/2025 10:30 AM EDT Social Work [facility] [place] [address] [place] [address] [place] [address] 08/20/2025 11:00 AM EDT Office Visit [facility] [place] [address] [place] [address] Jude Duque MD [address] [place] [address] documented as of this encounter Results * [...] by ascites and intermittent hepatic hydrothorax. TECHNIQUE: Dance Hall Host/Hostess: ADRI Andersen Secondary Video Player Mechanic: None. Nurse: Padmini Technologist: Lilliana [place] Dose: [...] complicated by ascites and intermittent hepatichydrothorax. TECHNIQUE: Dance Hall Host/Hostess: ADRI Andersen Secondary Video Player Mechanic: None. Nurse: Padmini Technologist: Lilliana [place] Dose: [...] on 06/23/2025 9:14 PM us Preeti Andersen BUILDING CODE INSPECTOR IMG US PROCEDURES Final Result documented in [...] documented as of this encounter Care Teams Local Sales Manager Relationship Specialty Start Date End Date Alvarez Zimmer MD [address] [place] [address] PCP - General Family Medicine 12/07/24 Lea Fernando [address] [place] [address] Fine Craft Artist Endocrinology 08/29/24 Rachel Ray APRN [address] [place] [address] Nurse Practitioner Gastroenterology 09/24/24 Tamera Isabel LPN VALUE-BASED TRANSFORMATION PROGRAM Licensed Practical Nurse 05/29/25 documented as of this encounter
--- OUTSIDE RECORDS SUMMARY | 2025-07-31 17:30 | XMS_ITS | Encounter Summary ---
Author Organization [facility] Address [facility] [place] [address] Care Team Providers Care Ship Steward Name Role Phone Lea Fernando Unavailable [phone] Rachel Ray REFUELER Unavailable [phone] Alvarez Zimmer MD Primary Care Provider [phone] Tamera Isabel FURNITURE FABRICATOR Unavailable UnavailAlina Bedolla RN Unavailable Unavailab Monique Che FURNITURE FABRICATOR Unavailable Unavailable Reason for Visit * Reason Onset Date Comments HCN Clinical Concern/Question 06/21/2025 Encounter Details Date Type Department Care Team (Late st Contact Info) Description 06/21/2025 Telephone [facility] Medicine [address] [place] [address] Alvarez Zimmer MD [address] [place] [address] HCN Clinical Concern/Question Social History [...] week 01/10/2025 How often do you attend [facility] ch or adventism services? Patient unable to answer 01/10/2025 Do you belong to any clubs o r organizations such as jain groups, [employer], [employer] or athletic groups, or school groups? Patient [...] you attend [facility] ch or adventism services? Never 05/29/2025 Do you belong to any clubs o r organizations such as jain groups, [employer], [employer] or athletic groups, or school groups? No [...] more drinks on one occasion? Never 06/25/2025 [facility] of Occupat ional Health - Occupational Stress [...] any time in the past 12 m onths, were you homeless or living in a [...] drink first t kennedy in the morning (EYE-ETCHER APPRENTICE) to steady your nerves or to get [...] one occasion? Never 06/25/2025 12:50 PM EDT Comer, Carleena A * Calculated C-SSRS Risk Score (Lifetime/Recent) Answer [...] home palliative care. Best contact number: Other: [phone] Optimal time of day to reach caller: ANYTIME Additional comments/information from caller: None Note: Please do not reply to this message. Follow-up communication and further actions as a result of this message need to be communicated with the patient directly, if the patient is not active onMyChart. If the patient is active on MyChart, they will receive notification of the communication/outcome via St[employer]hart. documented in this encounter Plan of Treatment Upcoming Encounters Date Type Department Care Team (Late st Contact Info) Description 08/01/2025 10:00 AM EDT Appointment [facility] Interventional Radiology [address] [place] [address] 08/01/2025 11:00 AM EDT Appointment [facility] Interventional Radiology [address] [place] [address] 08/08/2025 11:15 AM EDT Appointment [facility] Interventional Radiology [address] [place] [address] 08/08/2025 12:15 PM EDT Appointment [facility] Interventional Radiology [address] [place] [address] 2025 10:00 AM EDT Appointment [facility] Interventional Radiology [address] [place] [address] 2025 11:00 AM EDT Appointment [facility] Interventional Radiology [address] [place] [address] 08/20/2025 9:30 AM EDT Clinical Support [facility] [place] [address] [place] [address] 08/20/2025 10:30 AM EDT Social Work [facility] [place] [address] [address] Deysi Ortega [place], [place] [address] 08/20/2025 11:00 AM EDT Office Visit [facility] [place] [address] [address] Jude Duque MD [address] [place] [address] documented as of this encounter Visit Diagnoses [...] documented as of this encounter Care Teams Ship Steward Relationship Specialty Start Date End Date Alvarez Zimmer MD [address] [place] [address] PCP - General Family Medicine 12/07/24 Lea Fernando [address] [place] [address] Neurosurgical Nurse Practitioner Endocrinology 08/29/24 Rachel Ray APRN [address] [place] [address] Nurse Practitioner Gastroenterology 09/24/24 Tamera Isabel LPN VALUE-BASED TRANSFORMATION PROGRAM Licensed Practical Nurse 05/29/25 Alina Lovett, RN CH-VASCULAR & INTERVENTIONAL RADIOLOGY Registered Nurse 06/26/25 06/26/25 Monique Tapia LPN VALUE[place] [address] TCM Nurse 07/10/25 documented as of this encounter
--- OUTSIDE RECORDS SUMMARY | 2025-07-31 17:30 | XMS_ITS ---
Author Organization [facility] Address [address] [place] [address] Care Team Providers Care Sales Support Coordinator Name Role Phone Lea Fernando Unavailable [phone] Rachel Ray AGRONOMY PROFESSOR Unavailable [phone] Alvarez Zimmer MD Primary Care Provider [phone] Tamera Isabel LPN Unavailable Unavailabl Monique Garay LPN Unavailable Unavailable Annual Wellness Status:Active (Active) Start date:05/29/2025 Enrollment date:05/29/2025 Enrollment reason:Identified using claims or encounter data Case Team Name Relationship Phone Tamera Isabel LPN(Responsible Staff) Licensed Practical Nurse Continued Care and Services Coordination
--- OUTSIDE RECORDS SUMMARY | 2025-07-31 17:30 | XMS_ITS ---
Author Organization [facility] Address [address] [place] [address] Care Team Providers Care News Editor Name Role Phone Lea Fernando Unavailable [phone] Rachel Ray LEAD MECHANICAL ENGINEER Unavailable [phone] Alvarez Zimmer MD Primary Care Provider [phone] Tamera Isaebl BURN CENTER NURSE Unavailable Unavailabl Monique Garay BURN CENTER NURSE Unavailable Unavailable Transplant Episode Kidney Candidate [facility] ([place], [place]) [facility] Evaluation began on 10/30/2024 Marked as Active on 10/30/2024 Kidney CoordinatorWilma Arana RN Fax: N/A Email: N/A Scores Score Value Updated Exceptions/Reas ons CPRA Not available EPTS (Calc) 53 07/31/2025 [place] Organ Diagnosis Organ Primary Contributory Kidney Diabetes Mellitus - Type II Care Team Name Role Phone Fax Email Wilma Arana RN Kidney Coordinator [phone] N/A N/A Events Pre-Transplant Referred: 10/21/2024 Evaluation began: 10/30/2024 Appointments (06/30/2025 - 08/30/2025) When With Visit Type Description 08/20/2025 Transplant - Yazmin Ortega oryazmin - Office Visit 08/20/2025 Transplant LAB 08/20/2025 Transplant - Dixon Duque V isit - Transplant
--- OUTSIDE RECORDS SUMMARY | 2025-07-31 17:30 | XMS_ITS | Encounter Summary ---
Author Organization Healthcare Address [address] [place] [address] Care Team Providers Care Senior Merchandiser Name Role Phone Johnna Howarddebi Villalta DENTAL OFFICE ASSISTANT Primary Care Provider [phone] Lea Fernando Unavailable [phone] Rachel Ray DENTAL OFFICE ASSISTANT Unavailable [phone] Taina Lyles DENTAL OFFICE ASSISTANT Primary Care Provider Monique Tapia MILIEU THERAPIST Unavailable Unavailable Alvarez Zimmer MD Primary Care Provider [phone] Shaniqua Trevino MILIEU THERAPIST Unavailable Unavailable Tamera Isabel MILIEU THERAPIST Unavailable UnavailAlina Bedolla RN Unavailable Unavailab Monique Che LPN Unavailable Unavailable Reason for Visit * Reason Onset Date Comments Med Refill Med Refill 08/11/2021 Encounter Details Date Type Department Care Team (Late st Contact Info) Description 07/28/2021 Refill Merissa Terry Endocrinology [address] [place] [address] Deysi Antonio MD [address] [facility] [address] [place] [address] Social History Tobacco Use Types [...] Dosage: Test Strips Preferred Pharmacy & Location: [facility] Days of medication remaining (if under 3 days please aida as urgent): Pt is out Best contact number and optimal time of day to reach caller: [phone] Additional comments/information from caller: Note: Please do [...] Appointment [facility] Interventional Radiology [address] [place] [address] 08/01/2025 11:00 AM EDT Appointment [facility] Interventional Radiology [address] [place] [address] 08/08/2025 11:15 AM EDT Appointment [facility] Interventional Radiology [address] [place] [address] 08/08/2025 12:15 PM EDT Appointment [facility] Interventional Radiology [address] [place] [address] 2025 10:00 AM EDT Appointment [facility] Interventional Radiology [address] [place] [address] 2025 11:00 AM EDT Appointment [facility] Interventional Radiology [address] [place] [address] 08/20/2025 9:30 AM EDT Clinical Support [facility] [place] [address] [place] [address] 08/20/2025 10:30 AM EDT Social Work [facility] [place] [address] [place] [address] Deysi Ortega [place], [place] [address] 08/20/2025 11:00 AM EDT Office Visit [facility] [place] [address] [place] [address] Jude Duque MD [address] [place] [address] documented as of this encounter Visit Diagnoses [...] documented as of this encounter Care Teams Senior Merchandiser Relationship Specialty Start Date End Date Wilma Howard, DENTAL OFFICE ASSISTANT [address] [place] [address] [place] [address] PCP - General 04/03/21 09/30/24 Taina Lyles, DENTAL OFFICE ASSISTANT [address] [place] [address] [place] [address] PCP - General 10/01/24 12/06/24 Alvarez Zimmer MD [address] [place] [address] PCP - General Family Medicine 12/07/24 Lea Fernando [address] [place] [address] Veterinary Toxicologist Endocrinology 08/29/24 Rachel Ray APRN [address] [place] [address] Nurse Practitioner Gastroenterology 09/24/24 Monique Tapia LPN VALUE-BASED [place] [address] TCM Nurse 11/28/24 12/28/24 Shaniqua Trevino LPN TCM Nurse 01/15/25 02/14/25 Tamera Isabel LPN VALUE-BASED TRANSFORMATION PROGRAM Licensed Practical Nurse 05/29/25 Alina Lovett, RN CH-VASCULAR & INTERVENTIONAL RADIOLOGY Registered Nurse 06/26/25 06/26/25 Monique Tapia LPN VALUE-BASED [place] [address] TCM Nurse 07/10/25 documented as of this encounter
--- OUTSIDE RECORDS SUMMARY | 2025-07-31 17:30 | XMS_ITS | Encounter Summary ---
Author Organization Healthcare Address [address] [place] [address] Care Team Providers Care Service Dismantler Name Role Phone Wilma Howard Ambar ASSAULT AMPHIBIOUS VEHICLE OFFICER Primary Care Provider [phone] Lea Fernando Unavailable [phone] Rachel Ray ASSAULT AMPHIBIOUS VEHICLE OFFICER Unavailable [phone] Taina Lyles ASSAULT AMPHIBIOUS VEHICLE OFFICER Primary Care Provider Monique Tapia LPN Unavailable Unavailable Alvarez Zimmer MD Primary Care Provider [phone] Shaniqua Trevino RAG BALER Unavailable Unavailable Tamera Isabel RAG BALER Unavailable UnavailAlina Bedolla RN Unavailable Unavailab Monique Che LPN Unavailable Unavailable Reason for Visit * Reason Comments Med Refill Encounter Details Date Type Department Care Team (Late st Contact Info) Description 07/28/2021 Refill Merissa Terry Endocrinology [address] [place] [address] Deysi Antonio MD [address] [place] [address] Social History Tobacco Use Types [...] Appointment [facility] Interventional Radiology [address] [place] [address] 08/01/2025 11:00 AM EDT Appointment [facility] Interventional Radiology [address] [place] [address] 08/08/2025 11:15 AM EDT Appointment [facility] Interventional Radiology [address] [place] [address] 08/08/2025 12:15 PM EDT Appointment [facility] Interventional Radiology [address] [place] [address] 2025 10:00 AM EDT Appointment [facility] Interventional Radiology [address] [place] [address] 2025 11:00 AM EDT Appointment [facility] Interventional Radiology [address] [place] [address] 08/20/2025 9:30 AM EDT Clinical Support [facility] [address] [address] 08/20/2025 10:30 AM EDT Social Work [facility] [place] [address] [address] [place] [address] 08/20/2025 11:00 AM EDT Office Visit [facility] [address] [place] [address] Jude Duque MD [address] [place] [address] documented as of this encounter [...] as of this encounter Care Teams Service Dismantler Relationship Specialty Start Date End Date Wilma Howard ASSAULT AMPHIBIOUS VEHICLE OFFICER [address] [place] [address] [place] [address] PCP - General 04/03/21 09/30/24 Taina Lyles ASSAULT AMPHIBIOUS VEHICLE OFFICER [address] [place] [address] [place] [address] PCP - General 10/01/24 12/06/24 Alvarez Zimmer MD [address] [place] [address] PCP - General Family Medicine 12/07/24 Lea Fernando [address] [place] [address] [address] [place] [address] Child Adolescent Care Endocrinology 08/29/24 Rachel Ray, ASSAULT AMPHIBIOUS VEHICLE OFFICER [address] [place] [address] Nurse Practitioner Gastroenterology 09/24/24 Monique Tapia LPN VALUE-BASED [place] [address] TCM Nurse 11/28/24 12/28/24 Shaniqua Trevino LPN TCM Nurse 01/15/25 02/14/25 Tamera Isabel LPN VALUE-BASED TRANSFORMATION PROGRAM Licensed Practical Nurse 05/29/25 Alina Lovett, RN CH-VASCULAR & INTERVENTIONAL RADIOLOGY Registered Nurse 06/26/25 06/26/25 Monique Tapia LPN VALUE-BASED [place] [address] TCM Nurse 07/10/25 documented as of this encounter
--- OUTSIDE RECORDS SUMMARY | 2025-07-31 17:30 | XMS_ITS | Clinical Summary ---
Author Organization [facility], [facility] Address [address] [place] [phone] Phone Care Team Providers Care Grounds Supervisor Name Role Phone Taina Lyles Primary Care Provider [phone] Allergies No known active allergies Medications * [...] Insurance [employer] Dual [employer] MCR/GINGER Care Teams Grounds Supervisor Relationship Specialty Start Date End Date Taina Lyles [address] [place] [address] PCP - General 05/02/23
--- OUTSIDE RECORDS SUMMARY | 2025-07-31 17:30 | XMS_ITS | Clinical Summary ---
Author Organization [facility] Address [address] [place] [address] Care Team Providers Care Steam Plant Records Clerk Name Role Phone Taina Lyles APRN Primary Care Provider [phone] Allergies No known active allergies Medications * [...] mouth Every Night. 30 tablet 3 4 Active ubrogepant (Ubrelvy) 100 MG tabletIndication s:Acute [...] (11/02/2022): Added automatically from request for surgery [id number] Colon cancer screening 09/20/201910/26 Overview (09/20/2019): Added automatically from request for surgery [id number] Immunizations Immunization Administration Dates Next Due Flu [...] Aunt Neli Dials Alzheimer's disease Maternal Grandmother Mamdiana Sanchezett Breast cancer Maternal Grandmother Mamdiana Mayelin Dementia Maternal Grandmother Mamdiana Dick Parkinsonism Maternal Grandmother Mamdiana Dick Arthritis Mother Karime Diabetes Mother Karime Hyperlipidemia [...] Alive Maternal Aunt Neli Dials Maternal Grandmother Mamdiana Mayelin Mother Karime Alive Other Paternal Grandfather [...] 2022 PT PLAN OF CARE 03/01/2023 12/01/2022 GASTROSCOPY (EGD) 12/13/2024 12/13/2022, , 08/21/2019 COVID-19 Vaccine (1 - 2023-2 5 season) 2025 INFLUENZA VACCINE 08/21/2025 09/10/2022, , 02/11/2021, Additional [...] history exists Medical Devices Implanted Type Area Battery Charger Conveyor Line Device Identifier Shelf Expiration Date Model / Serial / Lot Implant Implant Description:BILATERAL IOL Clip Gi Lig Hemostasis Resolution 2.8mm - [id number] Implanted:Qty: 1 on 09/27/2019 by Ross Johnson MD at [facility] Implant [facility] 01/02/2022 [id number] / / [id number] Dev Clip Quickclippro Fix 2300mm - [id number] Implanted:Qty: 2 on 09/27/2019 by Ross Johnson MD at [facility] Implant [facility] 05/20/2022 HX20 2URA / / 97K Dev Clip Quickclippro Fix 2300mm - [id number] Implanted:Qty: 2 on 09/27/2019 by Ross Johnson MD at [facility] Implant [facility] 04/20/2022 HX20 2URA / / [id number] Dev Clip Endo [id number] Contrl Rot 235cm - [id number] Implanted:Qty: 1 on 01/14/2023 by Lori Rm MD at [facility] Implant N/A: Perianal OSIX BERNARDINO 09/27/2025 [id number] / / [id number] Procedures Procedure Name Priority Date/Time Associated Diagnosis [...] - 200 mg/dL 06/16/2024 12:02 AM EDT [facility] Triglycerides 113 0 - 150 mg/dL 06/16/2024 12:02 AM EDT [facility] HDL Cholesterol 51 40 - 60 mg/dL 06/16/2024 12:02 AM EDT [facility] LDL Cholesterol 79 0 - 100 mg/dL 06/16/2024 12:02 AM EDT [facility] VLDL Cholesterol 20 5 - 40 mg/dL 06/16/2024 12:02 AM EDT [facility] LDL/HDL Ratio 1.50 06/16/2024 12:02 AM EDT [facility] Blood Venipuncture / Unknown 06/15/2024 2:00 PM EDT 06/15/2024 3:40 PM EDT Narrative [facility] - 06/16/2024 12:02 AM EDT Cholesterol [...] MD LAB BLOOD ORDERABLES Final Resul t [facility]
[address] [place] [address], * Mammo Diagnostic Digital Tomosynthesis Bilateral With [...] compatible with focal fat necrosis. Taina Lyles SENIOR ELECTRONICS DESIGN ENGINEER IMG MAMMOGRAPHY ORDERABLES Fin al Result * COLONOSCOPY (01/14/2023 9:24 AM EST) Lori Rm MD INTERFACE NEEDS Final Re sult * UPPER GI ENDOSCOPY (12/13/2022 7:32 AM EST) Lori Rm MD INTERFACE NEEDS Final Re sult * Hepatitis C Antibody (10/28/2022 8:43 AM EST) Hepatitis C Ab Non-Reacti ve Non-Reacti ve 10/28/2022 7:36 PM EST [facility] Blood Venipuncture / Unknown 10/28/2022 8:43 AM EST 10/28/2022 9:21 AM EST Narrative [facility] - 10/28/2022 7:36 PM EST Results may be falsely decreased if patient taking Biotin. us Mira Amin APRN LAB BLOOD ORDERABLES Final Result [facility]
[address] [place] [address], from Last 3 Months or Most Recently [...] Of Support Discussed With: Patient Care Teams Steam Plant Records Clerk Relationship Specialty Start Date End Date Taina Lyles, ADRI PCP - General Nurse Practitioner 12/30/22
--- OUTSIDE RECORDS SUMMARY | 2025-07-31 17:30 | XMS_ITS | Encounter Summary ---
Author Organization [facility] Address [address] [place] [address] Care Team Providers Care Uniforms Sales Representative Name Role Phone Lea Fernando Unavailable [phone] Rachel Ray VOCATIONAL AIDE Unavailable [phone] Alvarez Zimmer MD Primary Care Provider [phone] Tamera Isabel RUBBER COMPOUNDER Unavailable Unavailabl Alina Jennings RN Unavailable Unavailab le Reason for Visit * Reason Onset Date Comments Med Refill 06/23/2025 Encounter Details Date Type Department Care Team (Late st Contact Info) Description 06/23/2025 Refill [facility] [address] [facility], [address] [place] [address] Ar Dominique MD [address] [place] [address] Vitamin D deficiency Social History [...] you attend chur ch or mormon services? Patient unable to answer 01/10/2025 Do you belong to any clubs o r organizations such as restorationist groups, [employer], Nar[employer] or athletic groups, or school groups? Patient [...] o r organizations such as restorationist groups, [employer], Nar[employer] or athletic groups, or school groups? No [...] drinks on one occasion? Never 06/25/2025 [facility] Occupational Stress Questionnaire Answer [...] drink first t kennedy in the morning (EYE-NURSERY MANAGER) to steady your nerves or to [...] Date of Assessment Author No Risk Indicated 06/26/2025 8:30 PM EDT Bia Carrillo * Question Answer Date of Assessment Author 1. Wish to be (Past 1 Month) No 025 8:30 PM EDT Bia Carrillo 2. Non-Specific Active Suici liz Thoughts (Past 1 Month) No 06/26/2025 8:30 PM EDT Yoli Carrillo 6. Suicidal Behavior (Lifetime) No 8:30 PM EDT Bia Carrillo documented as of this encounter Miscellaneous Notes * Telephone Encounter - Shauna Hernandez LPN - 06/27/2025 10:25 AM EDT Refilled ergocalciferol 1.25 mg capsule once weekly refilled per protocol. #4 with 0 refills sent to [facility]. Follow up scheduled 07/09/25. documented in this encounter Plan of Treatment Upcoming Encounters Date Type Department Care Team (Late st Contact Info) Description 08/01/2025 10:00 AM EDT Appointment [facility] [address] [place] [address] 08/01/2025 11:00 AM EDT Appointment [facility] [address] [place] [address] 08/08/2025 11:15 AM EDT Appointment [facility] [address] [place] [address] 08/08/2025 12:15 PM EDT Appointment [facility] [address] [place] [address] 2025 10:00 AM EDT Appointment [facility] [address] [place] [address] 2025 11:00 AM EDT Appointment [facility] [address] [place] [address] 08/20/2025 9:30 AM EDT Clinical Support [facility] [address] [facility] [address] [place] [address] 08/20/2025 10:30 AM EDT Social Work [facility] [place] [address] [facility] [address] [place] [address] [place] [address] 08/20/2025 11:00 AM EDT Office Visit [facility] [address] [facility] [address] [place] [address] Jude Duque MD [address] [facility] [address] [place] [address] documented as of this encounter [...] documented as of this encounter Care Teams Uniforms Sales Representative Relationship Specialty Start Date End Date Alvarez Zimmer MD [address] [place] [address] PCP - General Family Medicine 12/07/24 Lea Fernando [address] [facility] [address] [place] [address] Certified Ophthalmic Surgical Assistant Endocrinology 08/29/24 Rachel Ray APRN [address] [facility] [address] [place] [address] Nurse Practitioner Gastroenterology 09/24/24 Tamera Isabel LPN VALUE-BASED TRANSFORMATION PROGRAM Licensed Practical Nurse 05/29/25 Alina Lovett, RN [facility] INTERVENTIONAL RADIOLOGY Registered Nurse 06/26/25 06/26/25 documented as of this encounter
--- OUTSIDE RECORDS SUMMARY | 2025-07-31 17:30 | XMS_ITS | Encounter Summary ---
Author Organization [facility] Address [address] [place] [address] Care Team Providers Care Visual Merchandising Manager Name Role Phone Lea Fernando Unavailable [phone] Rachel Ray CONCRETE ANALYST Unavailable [phone] Alvarez Zimmer MD Primary Care Provider [phone] Tamera Isabel COTTON TIPPER Unavailable UnavailMonique Marcus COTTON TIPPER Unavailable Unavailable Encounter Details Date Type Department Care Team (Latest Contact Info) Description 07/11/2025 Travel Social History Tobacco Use Types Packs/Day [...] How often do you attend chur or christianity services? Never 05/29/2025 Do you [...] more drinks on one occasion? Never 06/25/2025 [facility] - [...] time in the past 12 m [facility], were you homeless or living in [...] drink first t kennedy in the morning (EYE-GUIDEMAN) to steady your nerves or to get [...] Appointment [facility] [address] [place] [address] 08/01/2025 11:00 AM EDT Appointment [facility] [address] [place] [address] 08/08/2025 11:15 AM EDT Appointment [facility] [address] [place] [address] 08/08/2025 12:15 PM EDT Appointment [facility] [address] [place] [address] 2025 10:00 AM EDT Appointment [facility] [address] [place] [address] 2025 11:00 AM EDT Appointment [facility] [address] [place] [address] 08/20/2025 9:30 AM EDT Clinical Support [facility] [address] [facility] [address] [place] [address] 08/20/2025 10:30 AM EDT Social Work [facility] [place] [address] [facility] [address] [place] [address] Deysi Ortega [place], [place] [id number] 08/20/2025 11:00 AM EDT Office Visit [facility] [place] [address] [facility] [address] [place] [address] Jude Duque MD [id number] [place] [address] documented as of this encounter [...] documented as of this encounter Care Teams Visual Merchandising Manager Relationship Specialty Start Date End Date Alvarez Zimmer MD [address] [place] [phone] PCP - General Family Medicine 12/07/[address] [facility] [address] [place] [address] Lathe Operator Contact Lens Endocrinology 08/29/24 Rachel Ray APRN [id number] [place] [address] Nurse Practitioner Gastroenterology 09/24/24 Tamera Isabel LPN VALUE-BASED TRANSFORMATION PROGRAM Licensed Practical Nurse 05/29/25 Monique Tapia LPN VALUE[place] [address] TCM Nurse 07/10/25 documented as of this encounter
--- OUTSIDE RECORDS SUMMARY | 2025-07-31 17:31 | XMS_ITS | Encounter Summary ---
Author Organization [facility] Address [address] [place] [address] Care Team Providers Care Hat Mender Name Role Phone Lea Fernando Unavailable [phone] Rachel Ray SALVAGE MECHANIC Unavailable [phone] Alvarez Zimmer MD Primary Care Provider [phone] Tamera Isabel LPN Unavailable Unavailabl e Encounter [...] on one occasion? Never 06/05/2025 [facility] [...] in the past 12 m [facility], were you homeless or living [...] drink first t kennedy in the morning (EYE-CHARGE LPN) to steady your nerves or to get rid of a hangover? 0 10/22/2024 CAGE Questionnaire Score 0 024 Utilities Answer Date Recorded In the past 12 months has th [employer], gas, oil, or water company threatened to [...] Suhail Garcia documented as of this encounter Plan of Treatment Upcoming Encounters Date Type Department Care Team (Late st Contact Info) Description 08/01/2025 10:00 AM EDT Appointment [facility] [address] [place] [address] 08/01/2025 11:00 AM EDT Appointment [facility] [address] [place] [address] 08/08/2025 11:15 AM EDT Appointment [facility] [address] [place] [address] 08/08/2025 12:15 PM EDT Appointment [facility] [address] [place] [address] 2025 10:00 AM EDT Appointment [facility] [address] [place] [address] 2025 11:00 AM EDT Appointment [facility] [address] [place] [address] 08/20/2025 9:30 AM EDT Clinical Support [facility] [place] [address] [place] [address] 08/20/2025 10:30 AM EDT Social Work [facility] [address] [place] [address] Deysi Ortega [place], [place] [id number] 08/20/2025 11:00 AM EDT Office Visit [facility] [place] [address] [place] [address] Jude Duque MD [address] [facility] [address] [place] [address] documented as of this encounter Visit Diagnoses [...] documented as of this encounter Care Teams Hat Mender Relationship Specialty Start Date End Date Alvarez Zimmer MD [address] [place] [address] PCP - General Family Medicine 12/07/24 Lea Fernando [address] [facility] 125 [place] [phone] Charging Manipulator Endocrinology 08/29/24 Rachel Ray APRN [address] [phone] Nurse Practitioner Gastroenterology 09/24/24 Tamera Isabel LPN VALUE-BASED TRANSFORMATION PROGRAM Licensed Practical Nurse 05/29/25 documented as of this encounter
--- OUTSIDE RECORDS SUMMARY | 2025-07-31 17:31 | XMS_ITS | Encounter Summary ---
Author Organization [facility] Address [address] [place] [address] Care Team Providers Care Software Validation Engineer Name Role Phone Lea Fernando Unavailable [phone] Rachel Ray DRESS MARKER Unavailable [phone] Alvarez Zimmer MD Primary Care Provider [phone] Tamera Isabel RECRUITING SCHEDULER Unavailable Unavailabl e Encounter Details Date Type Department Care Team (Late st Contact Info) Description 06/10/2025 Results Follow-Up [facility] [address] [place] [address] Alvarez Zimmer MD [address] [place] [address] Social History Tobacco Use Types [...] often do you attend [facility] or yarsani services? Patient unable to [...] you attend chur ch or yarsani services? Never 05/29/2025 Do you [...] more drinks on one occasion? Never 06/05/2025 [facility] ional Health - Occupational [...] drink first t kennedy in the morning (EYE-FILTER PRESS TENDER HEAD) to steady your nerves or to get rid of a hangover? 0 10/22/2024 CAGE Questionnaire Score 0 024 Utilities Answer Date Recorded In the past 12 months has [employer], gas, oil, or water [employer] threatened to shut off services in your [...] Appointment [facility] [address] [place] [address] 08/01/2025 11:00 AM EDT Appointment [facility] [address] [place] [address] 08/08/2025 11:15 AM EDT Appointment [facility] [address] [place] [address] 08/08/2025 12:15 PM EDT Appointment [facility] [address] [place] [address] 2025 10:00 AM EDT Appointment [facility] [address] [place] [address] 2025 11:00 AM EDT Appointment [facility] [address] [place] [address] 08/20/2025 9:30 AM EDT Clinical Support [facility] [place] [address] [place] [address] 08/20/2025 10:30 AM EDT Social Work [facility] [place] [address] [place] [address] Deysi Ortega [place], [place] [id number] 08/20/2025 11:00 AM EDT Office Visit [facility] [place] [address] [place] [address] Jude Duque MD [address] [place] [address] documented as of this encounter Visit Diagnoses [...] documented as of this encounter Care Teams Software Validation Engineer Relationship Specialty Start Date End Date Alvarez Zimmer MD [address] [place] [address] PCP - General Family Medicine 12/07/24 Lea Fernando [address] [place] [address] Gold Assayer Endocrinology 08/29/24 Rachel Ray APRN [address] [place] [address] Nurse Practitioner Gastroenterology 09/24/24 Tamera Isabel LPN VALUE-BASED TRANSFORMATION PROGRAM Licensed Practical Nurse 05/29/25 documented as of this encounter
--- OUTSIDE RECORDS SUMMARY | 2025-07-31 17:31 | XMS_ITS | Encounter Summary ---
Author Organization [facility] Address [address] [place] [address] Care Team Providers Care Pharmacy Tech Name Role Phone Lea Fernando Unavailable [phone] Rachel Ray VELVET CUTTER Unavailable [phone] Alvarez Zimmer MD Primary Care Provider [phone] Tamera Isabel CNC SUPERVISOR Unavailable Unavailabl e Reason for Referral * Consultation (Routine) - Authorized Specialty Diagnoses / Procedures Referred By Contac t Referred To Contact Palliative Medicine Diagnoses 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) (CMS/HCC) Protein malnutrition (CMS/HCC) Weight loss Cognitive impairment Alvarez Zimmer MD [address] [place] [address] Phone: tel: fax: Referral ID Status Reason Start Date Expiration Date V isits Requested Visits Authorized [id number] Authorized 06/12/2025 12/12/2026 1 1 Encounter Details Date Type Department Care Team (Late st Contact Info) Description 06/12/2025 Orders Only [facility] [address] [place] [address] Alvarez Zimmer MD [address] [address] 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) [...] How often do you attend chur or buddhist services? Patient unable to answer [...] week 05/29/2025 How often do you attend [facility] health system or buddhist services? Never 05/29/2025 Do you [...] drink first t kennedy in the morning (EYE-MODELING ANALYST) to steady your nerves or to [...] [facility] Inter[facility] Radiology [address] [place] [address] 08/01/2025 11:00 AM EDT Appointment [facility] [address] [place] [address] 08/08/2025 11:15 AM EDT Appointment [facility] [address] [place] [address] 08/08/2025 12:15 PM EDT Appointment [facility] [address] [place] [address] 2025 10:00 AM EDT Appointment [facility] [address] [place] [address] 2025 11:00 AM EDT Appointment [facility] [address] [place] [address] 08/20/2025 9:30 AM EDT Clinical Support [facility] [place] [address] [place] [address] 08/20/2025 10:30 AM EDT Social Work [facility] [address] [place] [address] [place] [address] 08/20/2025 11:00 AM EDT Office Visit [facility] [place] [address] [place] [address] Jude Duque MD [address] [place] [address] Scheduled Referrals Name Type Priority Associated Diagnoses [...] documented as of this encounter Care Teams Pharmacy Tech Relationship Specialty Start Date End Date Alvarez Zimmer MD [address] [place] [phone] PCP - General Family Medicine 12/07/24 Lea Fernando [address] [place] [address] Security Shift Manager Endocrinology 08/29/24 Rachel Ray, VELVET CUTTER [address] [place] [address] Nurse Practitioner Gastroenterology 09/24/24 Tamera Isabel LPN VALUE-BASED TRANSFORMATION PROGRAM Licensed Practical Nurse 05/29/25 documented as of this encounter
--- OUTSIDE RECORDS SUMMARY | 2025-07-31 17:31 | XMS_ITS | Encounter Summary ---
Author Organization [facility] Address [address] [place] [address] Care Team Providers Care Occupational Therapy Aides Teacher Name Role Phone Lea Fernando Unavailable [phone] Rachel Ray WAX BLEACHER Unavailable [phone] Alvarez Zimmer MD Primary Care Provider [phone] Tamera Isabel TANK HOUSE OPERATOR HELPER Unavailable Unavailabl e Reason for Visit * Reason Onset Date Comments Med Refill 06/09/2025 Encounter Details Date Type Department Care Team (Late st Contact Info) Description 06/09/2025 Refill [facility] [address] [facility] [place] [address] Ar Dominique MD [address] [facility] [address] [facility] [address] [place] [address] Chronic kidney disease, stage 3b [...] often do you attend [facility] or caodaism services? Patient unable to [...] often do you attend chur ch or caodaism services? Never 05/29/2025 Do you belong to [...] more drinks on one occasion? Never 06/05/2025 [facility] Occupat ional Health - [...] drink first t kennedy in the morning (EYE-CAD CAM PROGRAMMER) to steady your nerves or to [...] Appointment [facility] [address] [place] [address] 08/01/2025 11:00 AM EDT Appointment [facility] [address] [place] [address] 08/08/2025 11:15 AM EDT Appointment [facility] [address] [place] [address] 08/08/2025 12:15 PM EDT Appointment [facility] [address] [place] [address] 2025 10:00 AM EDT Appointment [facility] [address] [place] [address] 2025 11:00 AM EDT Appointment [facility] [address] [place] [address] 08/20/2025 9:30 AM EDT Clinical Support [facility] [place] [address] [place] [address] 08/20/2025 10:30 AM EDT Social Work [facility] [place] [address] [place] [address] [place] [address] 08/20/2025 11:00 AM EDT Office Visit [facility] [place] [address] [place] [address] Jude Duque MD [address] [place] [address] documented as of this encounter Visit Diagnoses [...] as of this encounter Care Teams Occupational Therapy Aides Teacher Relationship Specialty Start Date End Date Alvarez Zimmer MD [facility] [place] [address] PCP - General Family Medicine 12/07/24 Lea Fernando [address] [place] [address] Software Architect Endocrinology 08/29/24 Rachel Ray APRN [address] [facility] [address] [place] [address] Nurse Practitioner Gastroenterology 09/24/24 Tamera Isabel LPN VALUE-BASED TRANSFORMATION PROGRAM Licensed Practical Nurse 05/29/25 documented as of this encounter
--- OUTSIDE RECORDS SUMMARY | 2025-07-31 17:31 | XMS_ITS | Clinical Summary ---
Author Organization [facility] Address [address] [place] [address] Care Team Providers Care Plodder Operator Name Role Phone Lea Fernando Unavailable [phone] Rachel Ray IRRIGATOR VALVE PIPE Unavailable [phone] Alvarez Ordaz MD Primary Care Provider [phone] Tamera Isabel PSYCHIATRY RESIDENT Unavailable Unavailabl Monique Garay PSYCHIATRY RESIDENT Unavailable Unavailable Allergies No known active allergies Medications Multiple Vitamins-Housing Specialist als (COMPLETE WOMENS PO) Take 1 tablet by mouth in the morning. Active calcium carbonate EX (Tums E-X) 750 MG chewable tablet Chew 1 tablet (750 mg) 1 (one) time each day. 12/05/19 25 Active zinc sulfate (Zincate) 220 (50 Zn) MG capsule Take 1 capsule by mouth in the morning and 1 capsule before bedtime. 60 capsule 2 03/01/20 25 Active ciprofloxacin (Cipro) 500 MG tabletIndicati ons:Altered mental status, unspecified altered mental status type Take 1 tablet by mouth daily. 90 tablet 1 03/01/20 25 Active Magnesium Oxide, Laxative, 500 MG tabletIndicati ons:Hypomagnes emia Take 1 tablet by mouth daily. 90 tablet 3 04/01/20 25 Active cholecalcifero l (Vitamin D-3) 25 MCG (1000 UT) tablet Take 1 tablet by mouth daily. 90 tablet 2 04/01/20 25 Active Zegalogue 0.6 MG/0.6ML solution auto-injectorI ndications:Typ e 2 diabetes mellitus with hyperglycemia, with long-term current use of insulin (CMS/HCC) Inject 0.6 mg under the skin 1 time as needed (for extreme hypoglycemia) for up to 1 dose. 0.6 mL 2 04/17/20 25 Active Abaloparatide (Tymlos) 3120 MCG/1.56ML solution pen-injector Inject 80 mcg under the skin daily. 1.56 mL 2 04/22/20 25 Active lactulose (Chronulac) 10 GM/15ML solution Take 30 mL by mouth 3 times a day. 2700 mL 11 05/07/20 25 Active rifAXIMin (Xifaxan) 550 MG tabletIndicati ons:Liver cirrhosis secondary to NAIDU (nonalcoholic steatohepatiti s) (CMS/HCC) Take 1 tablet by mouth 2 times a day. 60 tablet 11 06/03/20 25 2025 Active calcitriol (Rocaltrol) 0.25 MCG capsuleIndicat ions:Chronic kidney disease, stage 3b (CMS/HCC) Take 1 capsule by mouth daily. 30 capsule 06/10/20 25 2025 Active ergocalciferol (Vitamin D-2) 1.25 MG (77624 UT) capsuleIndicat ions:Vitamin D deficiency Take 1 capsule by mouth 1 time per week. 4 capsule 06/27/20 25 2025 Active capsaicin (Zostrix-HP) 0.075 % topical cream Apply 1 Application topically daily as needed (Leg and foot cramps). Active cetirizine (ZyrTEC) 10 MG tabletIndicati ons:ETD (Eustachian tube dysfunction), bilateral Take 1 tablet by mouth daily. 30 tablet 07/09/20 25 Active insulin glargine-yfgn 100 UNIT/ML injection vial Inject 24 Units under the skin daily. 07/09/20 25 Active midodrine (Proamatine) 5 MG tablet Take 3 tablets by mouth 3 times a day. 07/09/20 25 Active benzonatate (Tessalon) 100 MG capsule Take 1 capsule by mouth 3 times a day as needed for cough. Do not crush or chew. 07/09/20 Active bisacodyl (Dulcolax) 10 MG suppository Insert 1 suppository into the rectum daily as needed for constipation. 07/09/20 Active carboxymethylc ellulose PF (Refresh Plus) 0.5 % ophthalmic solution Administer 1 drop into both eyes as needed for dry eyes. 07/09/20 Active hydrOXYzine HCl (Atarax) 25 MG tablet Take 0.5 tablets by mouth at night as needed for itching. 07/09/20 Active senna (Senokot) 8.6 MG tablet Take 1 tablet by mouth nightly. 07/09/20 Active polyethylene glycol (Miralax) 17 g packet Take 17 g by mouth 2 times a day. 07/09/20 Active melatonin tablet Take 1 tablet by mouth at night as needed for sleep. 07/09/20 Active insulin lispro (Admelog) 100 UNIT/ML injection Inject 0-10 Units under the skin 3 times a day with meals. See After Visit Summary for instructions on how to take your insulin. 07/09/20 Active insulin lispro (Admelog) 100 UNIT/ML injection Inject 0-3 Units under the skin 2 times a night. See After Visit Summary for instructions on how to take your insulin. 07/09/20 Active prochlorperazi ne (Compazine) 5 MG tablet Take 1 tablet by mouth every 8 hours as needed for nausea or vomiting. 60 tablet 2 07/09/20 25 2024 Active cetirizine (ZyrTEC) 10 MG tabletIndicati ons:ETD (Eustachian tube dysfunction), bilateral Take 1 tablet by mouth daily. 30 tablet 2 04/17/20 25 2024 Discontinued prochlorperazi ne (Compazine) 5 MG tablet Take 1 tablet by mouth every 8 hours as needed for nausea or vomiting. 60 tablet 2 05/07/20 25 2024 Discontinued insulin glargine (Lantus SoloStar) 100 UNIT/ML injection pen Inject 48 Units under the skin every morning. 2024 Discontinued(S top Taking at Discharge) insulin aspart (NovoLOG) 100 UNIT/ML injection vial Inject 20 Units under the skin 3 times a day before meals. Plus 4 units for every 50 > 150 MDD 80 units 2024 Discontinued(S top Taking at Discharge) midodrine (Proamatine) 5 MG tablet Take 2 tablets by mouth 3 times a day. 2024 Discontinued(S top Taking at Discharge) lidocaine (Lidoderm) 5 % patch Apply 1 patch topically 1 (one) time each day at the same time over 12 hours for 6 doses. Remove & discard patch within 12 hours or as directed by MD. 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 Assessment & Plan (07/08/2025 8:55 AM EDT): - Patient has met with palliative care [...] GOC discussions - Palliative follow up outpatient Assessment & Plan (07/07/2025 12:59 PM EDT): - Patient has met with palliative care [...] GOC discussions - Palliative follow up outpatient Assessment & Plan (07/06/2025 7:03 AM EDT): - Patient at this time has elected to pursue [facility] placement and would like to speak with palliative care to learn more about their services - SW working to find LTC facility placement - palliative consulted PLAN - Delirium protocols - Continue Up to Chair TID, q4 turns - Ongoing GOC discussions Assessment & Plan (07/05/2025 8:28 AM EDT): - Patient at this time has elected to pursue Nursing Home Care placement and would like to speak with palliative care to learn more about their services - SW working to find LTC facility placement - palliative consulted PLAN - Delirium protocols - Continue Up to Chair TID, q4 turns - Ongoing GOC discussions Assessment & Plan (07/04/2025 9:28 AM EDT): - Patient at this time has elected to pursue Nursing Home Care placement and would like to speak with palliative care to learn more about their services - SW working to find LTC facility placement - palliative consulted PLAN - Delirium protocols - Continue Up to Chair TID, q4 turns - Ongoing GOC discussions Assessment & Plan (07/03/2025 8:24 AM EDT): - Patient at this time has elected to pursue Nursing Home Care placement and would like to speak with palliative care to learn more about their services - L Leg discomfort is improved PLAN - Delirium protocols - Continue Up to Chair TID, q4 turns - SW to meet with patient to discuss options further - Consult Palliative care - Ongoing GOC discussions Assessment & Plan (07/02/2025 5:19 PM EDT): - PTOT recs home health 6 days ago - Patient unable to be placed on transplant list if NH is primary address, [facility] be fine - Per transplant team: Patient needs a primary caregiver to go with her to see transplant SW to get placed onto list - After discussion with patient and family, sister is not able to care for her and neither is son at this time - Patient at this time has elected to pursue [facility] placement and would like to speak [...] consult AM 07/03 - Ongoing GOC discussions Assessment & Plan (07/01/2025 9:16 AM EDT): - PTOT recs home health - Patient and family have significant concern and would prefer [facility] or [facility] care pending influence on ability to receive transplant - Patient endorsing some burning discomfort that begins in buttocks and radiates down lateral leg, does not feel as though she is getting moved much - Concerned with possible disorientation PLAN - Transplant service to evaluate today and determine if terminal [facility] care would be a barrier to future liver transplant - Delirium protocols - Up to Chair TID, q4 turns Serum ammonia increased 06/29/2025 Assessment & Plan (07/08/2025 1:55 PM EDT): - Ammonia 146 PLAN - Increase home Lactulose to 30 g TID - Recheck ammonia if neurologic change suspected Assessment & Plan (07/07/2025 12:59 PM EDT): - Last ammonia stable at 61 on 06/30 PLAN - Continue home Lactulose - Recheck ammonia if neurologic change suspected Assessment & Plan (07/06/2025 7:03 AM EDT): - Last ammonia stable at 61 on 06/30 PLAN - Continue home Lactulose - Recheck ammonia if neurologic change suspected Assessment & Plan (07/05/2025 8:28 AM EDT): - Last ammonia stable at 61 on 06/30 PLAN - Continue home Lactulose - Recheck ammonia if neurologic change suspected Assessment & Plan (07/04/2025 9:28 AM EDT): - Last ammonia stable at 61 on 06/30 PLAN - Continue home Lactulose - Recheck ammonia if neurologic change suspected Assessment & Plan (07/03/2025 6:57 AM EDT): - Last ammonia stable at 61 on 06/30 PLAN - Continue home Lactulose - Recheck ammonia if neurologic change suspected Assessment & Plan (07/02/2025 9:13 AM EDT): - Last ammonia stable at 61 on 06/30 PLAN - Continue home Lactulose - Recheck ammonia if neurologic change suspected Assessment & Plan (07/01/2025 9:16 AM EDT): - Last ammonia stable at 61 on 06/30 PLAN - Continue home Lactulose - Recheck ammonia if neurologic change suspected Assessment & Plan (06/30/2025 1:48 PM EDT): - 06/30 Ammonia 61; decreased from 125 8/9 - Patient takes Lactulose 20 g TID at home - Reports occasionally missing her 3rd dose of Lactulose; has been receiving all 3 doses in the hospital PLAN - Continue home Lactulose Assessment & Plan (06/29/2025 12:33 PM EDT): - Ammonia 125 8/9 - Patient takes Lactulose 20 g TID at home - Reports occasionally missing her 3rd dose; has been receiving all 3 doses in the hospital - Patient had 2 bowel movements this morning PLAN - Continue home Lactulose Neutropenia 06/26/2025 Assessment & Plan (07/08/2025 1:55 PM EDT): - WBC 2.74 (baseline 4.0) with 1.52 absolute neutrophils - RBC 2.56 (baseline 3.0), platelets 43 (baseline 55) PLAN - Continue to monitor - Continue Heparin for DVT prophylaxis - Rheumatology referral outpatient - Patient will NOT need neutropenic precautions at LTC outside of the hospital. Assessment & Plan (07/07/2025 1:38 PM EDT): - WBC 2.65 (baseline 4.0) with 1.48 absolute neutrophils - RBC 2.56 (baseline 3.0), platelets 46 (baseline 55) - Patient is completely asymptomatic at this time PLAN - Continue to monitor - Continue Heparin for DVT prophylaxis - Rheumatology referral outpatient - Patient will NOT need neutropenic precautions at LTC outside of the hospital. Assessment & Plan (07/01/2025 1:10 PM EDT): - WBC 3.15 (baseline 4.0) with 1.79 absolute neutrophils, neutropenia resolved today - RBC 2.81 (baseline 3.0), platelets 47 (baseline 55) - Stable up trending toward baseline overall - Patient has a history of SLE on chart review JORDAN positive though not on medication - Stopped seeing aqueduct and reservoir keeper after being dismissed for missing too many appointments - Blood smear results pancytopenia not morphologically distinct PLAN - Continue to monitor - Continue Heparin for DVT prophylaxis - Rheumatology referral outpatient Assessment & Plan (06/30/2025 1:48 PM EDT): - WBC 2.74 (baseline 4.0) with 1.45 absolute neutrophils - RBC 2.74 (baseline 3.0), platelets 40 (baseline 55) - aPTT 06/27 was 42 PLAN - Continue to monitor at this time - Continue Heparin for DVT prophylaxis - Blood smear ordered; will follow the results Assessment & Plan (06/29/2025 12:33 PM EDT): - WBC 2.22 (baseline 4.0) with 1.04 absolute neutrophils - RBC 2.86 (baseline 3.0), platelets 39 (baseline 55) - Heparin for DVT prophylaxis resumed after procedures - aPTT 06/27 was 42 PLAN - Continue to monitor at this time - Blood smear ordered; will follow the results Assessment & Plan (06/29/2025 8:30 AM EDT): - WBC 1.69 (baseline 4.0) with 0.69 absolute neutrophils - RBC 2.72 (baseline 3.0), platelets 40 (baseline 55) - Heparin for DVT prophylaxis resumed after procedures - aPTT 06/27 was 42 PLAN - Continue to monitor at this time - Consider blood smear in the future, if CBC values continue to decrease Assessment & Plan (06/27/2025 3:08 PM EDT): - WBC 2.26 (baseline 4.0) with 0.98 absolute neutrophils - RBC 2.83 (baseline 3.0), platelets 38 (baseline 55) PLAN - Continue to monitor at this time - Heparin q12h for DVT prophylaxis held for paracentesis; will resume after procedure - aPTT ordered to monitor heparin therapy Assessment & Plan (06/26/2025 3:57 PM EDT): - WBC 1.89 (baseline 4.0) with 0.75 absolute neutrophils - RBC 2.75 (baseline 3.0), platelets 38 (baseline 55) PLAN - Continue to monitor at this time - Consider DVT prophylaxis Pancytopenia 06/26/2025 Assessment & Plan (07/08/2025 1:55 PM EDT): - WBC 2.74 (baseline 4.0) with 1.52 absolute neutrophils - RBC 2.56 (baseline 3.0), platelets 43 (baseline 55) PLAN - Continue to monitor - Continue Heparin for DVT prophylaxis - Rheumatology referral outpatient - Patient will NOT need neutropenic precautions at LTC outside of the hospital. Assessment & Plan (07/07/2025 1:38 PM EDT): - WBC 2.65 (baseline 4.0) with 1.48 absolute neutrophils - RBC 2.56 (baseline 3.0), platelets 46 (baseline 55) - Patient is completely asymptomatic at this time PLAN - Continue to monitor - Continue Heparin for DVT prophylaxis - Rheumatology referral outpatient - Patient will NOT need neutropenic precautions at LTC outside of the hospital. Assessment & Plan (07/06/2025 11:50 AM EDT): - WBC 2.99 (baseline 4.0) with 1.73 absolute neutrophils - RBC 2.51 (baseline 3.0), platelets 49 (baseline 55) - Stable overall PLAN - Continue to monitor - Continue Heparin for DVT prophylaxis - Rheumatology referral outpatient - Patient is listed as neutropenic per hospital protocol, she will NOT need neutropenic precautions at LTC outside of the hospital. Assessment & Plan (07/05/2025 1:06 PM EDT): - WBC 2.91 (baseline 4.0) with 1.84 absolute neutrophils - RBC 2.55 (baseline 3.0), platelets 46 (baseline 55) - Stable overall PLAN - Continue to monitor - Continue Heparin for DVT prophylaxis - Rheumatology referral outpatient - Patient is listed as neutropenic per hospital protocol, she will NOT need neutropenic precautions at LTC outside of the hospital. Assessment & Plan (07/04/2025 3:19 PM EDT): - WBC 2.46 (baseline 4.0) with 1.4 absolute neutrophils - RBC 2.55 (baseline 3.0), platelets 39 (baseline 55) - Stable overall PLAN - Continue to monitor - Continue Heparin for DVT prophylaxis - Rheumatology referral outpatient - Patient is listed as neutropenic per hospital protocol, she will NOT need neutropenic precautions at [facility] outside of the hospital. Assessment & Plan (07/03/2025 6:57 AM EDT): - WBC 2.6 (baseline 4.0) with 1.58 absolute neutrophils - RBC 2.56 (baseline 3.0), platelets 43 (baseline 55) - Stable overall PLAN - Continue to monitor - Continue Heparin for DVT prophylaxis - Rheumatology referral outpatient Assessment & Plan (07/02/2025 9:13 AM EDT): - WBC 3.07 (baseline 4.0) with 1.66 absolute neutrophils - RBC 2.67 (baseline 3.0), platelets 51 (baseline 55) - Stable overall PLAN - Continue to monitor - Continue Heparin for DVT prophylaxis - Rheumatology referral outpatient Assessment & Plan (07/01/2025 1:10 PM EDT): - WBC 3.15 (baseline 4.0) with 1.79 absolute neutrophils, neutropenia resolved today - RBC 2.81 (baseline 3.0), platelets 47 (baseline 55) - Stable up trending toward baseline overall - Patient has a history of SLE on chart review JORDAN positive though not on medication - Stopped seeing aqued[facility] and reservoir keeper after being dismissed for missing too many appointments - Blood smear results pancytopenia not morphologically distinct PLAN - Continue to monitor - Continue Heparin for DVT prophylaxis - Rheumatology referral outpatient Assessment & Plan (06/30/2025 1:48 PM EDT): - WBC 2.74 (baseline 4.0) with 1.45 absolute neutrophils - RBC 2.74 (baseline 3.0), platelets 40 (baseline 55) - aPTT 06/27 was 42 PLAN - Continue to monitor at this time - Continue Heparin for DVT prophylaxis - Blood smear ordered; will follow the results Assessment & Plan (06/29/2025 12:33 PM EDT): - WBC 2.22 (baseline 4.0) with 1.04 absolute neutrophils - RBC 2.86 (baseline 3.0), platelets 39 (baseline 55) - Heparin for DVT prophylaxis resumed after procedures - aPTT 06/27 was 42 PLAN - Continue to monitor at this time - Blood smear ordered; will follow the results Assessment & Plan (06/29/2025 8:30 AM EDT): - WBC 1.69 (baseline 4.0) with 0.69 absolute neutrophils - RBC 2.72 (baseline 3.0), platelets 40 (baseline 55) - Heparin for DVT prophylaxis resumed after procedures - aPTT 06/27 was 42 PLAN - Continue to monitor at this time - Consider blood smear in the future, if CBC values continue to decrease Assessment & Plan (06/27/2025 3:08 PM EDT): - WBC 2.26 (baseline 4.0) with 0.98 absolute neutrophils - RBC 2.83 (baseline 3.0), platelets 38 (baseline 55) PLAN - Continue to monitor at this time - Heparin q12h for DVT prophylaxis held for paracentesis; will resume after procedure - aPTT ordered to monitor heparin therapy Assessment & Plan (06/26/2025 3:57 PM EDT): - WBC 1.89 (baseline 4.0) with 0.75 absolute neutrophils - RBC 2.75 (baseline 3.0), platelets 38 (baseline 55) PLAN - Continue to monitor at this time - Consider DVT prophylaxis Pleural effusion associated with hepatic disorde r 06/25/2025 Assessment & Plan (07/08/2025 1:55 PM EDT): - Cr stable at 1.16 - Paracentesis [...] Renally dose medications and avoid nephrotoxic agents Assessment & Plan (07/07/2025 12:59 PM EDT): - Cr stable at 1.2 - Paracentesis [...] Renally dose medications and avoid nephrotoxic agents Assessment & Plan (07/06/2025 11:50 AM EDT): - Completed albumin challenge on 07/03 - [...] Renally dose medications and avoid nephrotoxic agents Assessment & Plan (07/05/2025 1:06 PM EDT): - Completed albumin challenge on 07/03 - [...] Renally dose medications and avoid nephrotoxic agents Assessment & Plan (07/04/2025 11:12 AM EDT): - Completed albumin challenge on 07/03 - [...] Renally dose medications and avoid nephrotoxic agents Assessment & Plan (07/03/2025 8:24 AM EDT): - Creatinine 1.0-1.1 at baseline; Improved to [...] is scheduled to get one outpatient tomorrow Assessment & Plan (07/02/2025 5:19 PM EDT): - Creatinine 1.0-1.1 at baseline; worsened to [...] Renally dose medications and avoid nephrotoxic agents Assessment & Plan (07/01/2025 1:38 PM EDT): - Creatinine 1.1-1.3 at baseline; Improved to [...] Renally dose medications and avoid nephrotoxic agents Assessment & Plan (06/30/2025 1:48 PM EDT): - Creatinine 1.1-1.3 at baseline; slight increase [...] - Continue daily vit D 1000 U; 19162 U to be ordered on 06/30 if still admitted - Renally dose medications and avoid nephrotoxic agents Assessment & Plan (06/29/2025 12:33 PM EDT): - Creatinine 1.1-1.3 at baseline; improved to [...] - Continue daily vit D 1000 U; 50214 U to be ordered on 06/30 if still admitted - Renally dose medications and avoid nephrotoxic agents Assessment & Plan (06/29/2025 8:30 AM EDT): - Creatinine 1.1-1.3 at baseline; improved to [...] - Continue daily vit D 1000 U; [id number] U to be ordered on 06/30 if still admitted - Renally dose medications and avoid nephrotoxic agents Assessment & Plan (06/27/2025 3:08 PM EDT): - MELD 3.0: 26 on 06/27 - [...] - Continue daily vit D 1000 U; 55997 U to be ordered on 06/30 if still admitted - Renally dose medications and avoid nephrotoxic agents Assessment & Plan (06/26/2025 3:57 PM EDT): - MELD 3.0: 27 on 06/26 - [...] - Continue daily vit D 1000 U; 64155 U to be ordered on 06/30 if still admitted - Renally dose medications and avoid nephrotoxic agents Assessment & Plan (06/26/2025 2:33 AM EDT): MELD 3.0: 31 at 06/25/2025 3:00 PM [...] daily, Vit D 1000 U daily and 09009 U weekly (Sundays) PLAN: - Admitted to acute under attending Dr. Loyola for further workup - Trend creatinine on [...] - Continue daily vit D 1000 U; 38606 U to be ordered on 06/30 if still admitted - Renally dose medications and avoid nephrotoxic agents Self-care deficit 06/25/2025 Assessment & Plan (07/08/2025 8:55 AM EDT): - Patient has met with palliative care [...] GOC discussions - Palliative follow up outpatient Assessment & Plan (07/07/2025 12:59 PM EDT): - Patient has met with palliative care [...] GOC discussions - Palliative follow up outpatient Assessment & Plan (07/06/2025 7:03 AM EDT): - Patient at this time has elected to pursue [facility] [facility] [facility] placement and would like to speak with palliative care to learn more about their services - SW working to find LTC facility placement - palliative consulted PLAN - Delirium protocols - Continue Up to Chair TID, q4 turns - Ongoing GOC discussions Assessment & Plan (07/05/2025 8:28 AM EDT): - Patient at this time has elected to pursue [facility] [facility] [facility] placement and would like to speak with palliative care to learn more about their services - SW working to find LTC facility placement - palliative consulted PLAN - Delirium protocols - Continue Up to Chair TID, q4 turns - Ongoing GOC discussions Assessment & Plan (07/04/2025 9:28 AM EDT): - Patient at this time has elected to pursue Nursing Home Care placement and would like to speak with palliative care to learn more about their services - SW working to find LTC facility placement - palliative consulted PLAN - Delirium protocols - Continue Up to Chair TID, q4 turns - Ongoing GOC discussions Assessment & Plan (07/03/2025 8:24 AM EDT): - Patient at this time has elected to pursue [facility] [facility] [facility] placement and would like to speak with palliative care to learn more about their services - L Leg discomfort is improved PLAN - Delirium protocols - Continue Up to Chair TID, q4 turns - SW to meet with patient to discuss options further - Consult Palliative care - Ongoing GOC discussions Assessment & Plan (07/02/2025 5:19 PM EDT): - PTOT recs home health 6 days ago - Patient unable to be placed on transplant list if [facility] is primary address, [facility] be fine - Per transplant team: Patient needs a primary caregiver to go with her to see transplant SW to get placed onto list - After discussion with patient and family, sister is not able to care for her and neither is son at this time - Patient at this time has elected to pursue Nursing Home Care placement and would like to speak [...] consult AM 07/03 - Ongoing GOC discussions Assessment & Plan (07/01/2025 9:16 AM EDT): - PTOT recs home health - Patient and family have significant concern and would prefer [facility] or [facility] pending influence on ability to receive transplant - Patient endorsing some burning discomfort that begins in buttocks and radiates down lateral leg, does not feel as though she is getting moved much - Concerned with possible disorientation PLAN - Transplant service to evaluate today and determine if [facility] care would be a barrier to future liver transplant - Delirium protocols - Up to Chair TID, q4 turns Assessment & Plan (06/30/2025 1:48 PM EDT): - Patient reports poor PO intake at [...] come tomorrow to discuss options with patient Assessment & Plan (06/29/2025 11:21 AM EDT): - Patient reports poor PO intake at home in s/o large-volume ascites - Family involved in and amenable to discussion of placement; concerned for declining ability to perform ADLs - PT/OT recommended home health; patient and family requested [facility] facility PLAN - Plan for placement in long-term care Assessment & Plan (06/29/2025 8:30 AM EDT): - Patient reports poor PO intake at home in s/o large-volume ascites - Family involved in and amenable to discussion of placement; concerned for declining ability to perform ADLs - PT/OT recommended home health; patient and family requested [facility] facility PLAN - Plan for placement in long-term care Assessment & Plan (06/27/2025 3:08 PM EDT): - Patient reports poor PO intake in s/o large-volume ascites - Episode of severe debility the other day (couldn't use phone, had to go to neighbors for help) - Family involved in and amenable to discussion of placement; concerned for declining ability to perform ADLs PLAN - PT/OT recommended home health - Nutrition consulted; recs appreciated - Patient agreeable to [facility] facility Assessment & Plan (06/26/2025 3:57 PM EDT): - Patient reports poor PO intake in [...] vs long-term care with patient and family Assessment & Plan (06/25/2025 10:50 PM EDT): - Per family, transplant surgery requesting patient to be mostly independent with ADLs prior to transplant consideration - Patient reports poor PO intake due to persistent large volume ascites requiring weekly paracentesis - Family requesting help with care; would like to discuss inpatient facility, has had home health in the past PLAN: - PT/OT and nutrition consult ordered; recs appreciated Caregiver not readily available 06/11/2025 Hx of spontaneous bacterial peritonitis 03/01/20 25 Assessment & Plan (07/08/2025 1:55 PM EDT): - Cr stable at 1.16 - Paracentesis [...] Renally dose medications and avoid nephrotoxic agents Assessment & Plan (07/07/2025 12:59 PM EDT): - Cr stable at 1.2 - Paracentesis [...] Renally dose medications and avoid nephrotoxic agents Assessment & Plan (07/06/2025 11:50 AM EDT): - Completed albumin challenge on 07/03 - [...] Renally dose medications and avoid nephrotoxic agents Assessment & Plan (07/05/2025 1:06 PM EDT): - Completed albumin challenge on 07/03 - [...] Renally dose medications and avoid nephrotoxic agents Assessment & Plan (07/04/2025 11:12 AM EDT): - Completed albumin challenge on 07/03 - [...] Renally dose medications and avoid nephrotoxic agents Assessment & Plan (07/03/2025 8:24 AM EDT): - Creatinine 1.0-1.1 at baseline; Improved to [...] is scheduled to get one outpatient tomorrow Assessment & Plan (07/02/2025 5:19 PM EDT): - Creatinine 1.0-1.1 at baseline; worsened to [...] Renally dose medications and avoid nephrotoxic agents Assessment & Plan (07/01/2025 1:38 PM EDT): - Creatinine 1.1-1.3 at baseline; Improved to [...] Renally dose medications and avoid nephrotoxic agents Assessment & Plan (06/30/2025 1:48 PM EDT): - Creatinine 1.1-1.3 at baseline; slight increase [...] - Continue daily vit D 1000 U; 24059 U to be ordered on 06/30 if still admitted - Renally dose medications and avoid nephrotoxic agents Assessment & Plan (06/29/2025 12:33 PM EDT): - Creatinine 1.1-1.3 at baseline; improved to [...] - Continue daily vit D 1000 U; 97518 U to be ordered on 06/30 if still admitted - Renally dose medications and avoid nephrotoxic agents Assessment & Plan (06/29/2025 8:30 AM EDT): - Creatinine 1.1-1.3 at baseline; improved to [...] - Continue daily vit D 1000 U; 66247 U to be ordered on 06/30 if still admitted - Renally dose medications and avoid nephrotoxic agents Assessment & Plan (06/27/2025 3:08 PM EDT): - MELD 3.0: 26 on 06/27 - [...] - Continue daily vit D 1000 U; 91762 U to be ordered on 06/30 if still admitted - Renally dose medications and avoid nephrotoxic agents Assessment & Plan (06/26/2025 3:57 PM EDT): - MELD 3.0: 27 on 06/26 - [...] - Continue daily vit D 1000 U; 92795 U to be ordered on 06/30 if still admitted - Renally dose medications and avoid nephrotoxic agents Assessment & Plan (06/26/2025 2:33 AM EDT): MELD 3.0: 31 at 06/25/2025 3:00 PM [...] daily, Vit D 1000 U daily and 87980 U weekly (Sundays) PLAN: - Admitted to acute under attending Dr. Loyola for further workup - Trend creatinine on [...] - Continue daily vit D 1000 U; 79309 U to be ordered on 06/30 if still admitted - Renally dose medications and avoid nephrotoxic agents Moderate protein-calorie malnutrition 01/22/2025 Type 2 diabetes mellitus, wi th long-term current use of insulin 01/11/2024 Assessment & Plan (07/08/2025 11:14 AM EDT): - Glucose 172 PLAN - Continue Glargine 24 U daily + resistant SSI - Continue to monitor glucose trends Assessment & Plan (07/07/2025 12:59 PM EDT): - Glucose 151 PLAN - Continue Glargine 24 U daily + resistant SSI - Continue to monitor glucose trends Assessment & Plan (07/06/2025 11:50 AM EDT): - Glucose 128 PLAN - Continue Glargine 24 U daily + resistant SSI - Continue to monitor glucose trends Assessment & Plan (07/05/2025 1:06 PM EDT): - Glucose 147 PLAN - Continue Glargine 24 U daily + resistant SSI - Continue to monitor glucose trends Assessment & Plan (07/04/2025 9:28 AM EDT): - Last POCT glucose 103 PLAN - Continue Glargine 24 U daily + resistant SSI - Continue to monitor glucose trends Assessment & Plan (07/03/2025 6:57 AM EDT): - Last POCT glucose 150 - 2 Units correction in last 24h none overnight PLAN - Continue Glargine 24 U daily + resistant SSI - Continue to monitor glucose trends Assessment & Plan (07/02/2025 9:13 AM EDT): - Last POCT glucose 115 - 6 Units correction in last 24h none overnight or today PLAN - Continue Glargine 24 U daily + resistant SSI - Continue to monitor glucose trends Assessment & Plan (07/01/2025 1:24 PM EDT): - Last POCT glucose 257, received 6 units correction - Prior to this had received 6 Units correction in last 24h PLAN - Continue Glargine 24 U daily + resistant SSI - Continue to monitor glucose trends Assessment & Plan (06/30/2025 1:48 PM EDT): - Last POCT glucose 128 - Received 10 units correction in past 24hrs - Hypoglycemia precautions ordered due to reported hypoglycemia at home PLAN - Continue Glargine 24 U daily + resistant SSI - Continue to monitor glucose trends Assessment & Plan (06/29/2025 12:33 PM EDT): - Last POCT glucose 144 - Received 0U correction this morning - Hypoglycemia precautions ordered due to reported hypoglycemia at home PLAN - Continue Glargine 24 U daily + resistant SSI - Continue to monitor glucose trends Assessment & Plan (06/29/2025 8:30 AM EDT): - Last POCT glucose 151 (before receiving 24U) - Received 2U correction this morning - Hypoglycemia precautions ordered due to reported hypoglycemia at home PLAN - Continue Glargine 24 U daily + resistant SSI - Continue to monitor glucose trends Assessment & Plan (06/27/2025 3:08 PM EDT): - BG 245 on arrival; last POCT glucose 108 - Glargine 24 U daily + resistant SSI ordered on admission - Hypoglycemia precautions ordered due to reported hypoglycemia at home PLAN - Continue to monitor BG trends; if any concerns over the afternoon, will adjust regimen as necessary Assessment & Plan (06/26/2025 3:57 PM EDT): - BG 245 on arrival; last POCT glucose 120 - Glargine 24 U daily + resistant SSI ordered on admission - Hypoglycemia precautions ordered due to reported hypoglycemia at home PLAN - Continue to monitor BG trends; if any concerns over the afternoon, will adjust regimen as necessary Assessment & Plan (06/25/2025 10:50 PM EDT): - Takes glargine 48 U daily and aspart 24 U TID w/meals + 12 U before small meals/snacks - Correction factor of 4:50>150 with aspart - BG 245 on arrival - Per patient and family, she has had episodes of profound hypoglycemia recently; reports as low as in the 50s PLAN: - Glargine 24 U daily + resistant SSI ordered on admission - Hypoglycemia precautions ordered due to reported hypoglycemia at home - Continue to monitor BG trends; adjust regimen as necessary Secondary esophageal varices without bleeding Portal hypertensive gastropathy 02/24/2023 Cirrhosis of liver with ascites 11/30/2022 Assessment & Plan (07/08/2025 1:55 PM EDT): - Cr stable at 1.16 - Paracentesis [...] Renally dose medications and avoid nephrotoxic agents Assessment & Plan (07/07/2025 12:59 PM EDT): - Cr stable at 1.2 - Paracentesis [...] Renally dose medications and avoid nephrotoxic agents Assessment & Plan (07/06/2025 11:50 AM EDT): - Completed albumin challenge on 07/03 - [...] Renally dose medications and avoid nephrotoxic agents Assessment & Plan (07/05/2025 1:06 PM EDT): - Completed albumin challenge on 07/03 - [...] Renally dose medications and avoid nephrotoxic agents Assessment & Plan (07/04/2025 11:12 AM EDT): - Completed albumin challenge on 07/03 - [...] Renally dose medications and avoid nephrotoxic agents Assessment & Plan (07/03/2025 8:24 AM EDT): - Creatinine 1.0-1.1 at baseline; Improved to [...] is scheduled to get one outpatient tomorrow Assessment & Plan (07/02/2025 5:19 PM EDT): - Creatinine 1.0-1.1 at baseline; worsened to [...] Renally dose medications and avoid nephrotoxic agents Assessment & Plan (07/01/2025 1:38 PM EDT): - Creatinine 1.1-1.3 at baseline; Improved to [...] Renally dose medications and avoid nephrotoxic agents Assessment & Plan (06/30/2025 1:48 PM EDT): - Creatinine 1.1-1.3 at baseline; slight increase [...] - Continue daily vit D 1000 U; 26481 U to be ordered on 06/30 if still admitted - Renally dose medications and avoid nephrotoxic agents Assessment & Plan (06/29/2025 12:33 PM EDT): - Creatinine 1.1-1.3 at baseline; improved to [...] - Continue daily vit D 1000 U; 21215 U to be ordered on 06/30 if still admitted - Renally dose medications and avoid nephrotoxic agents Assessment & Plan (06/29/2025 8:30 AM EDT): - Creatinine 1.1-1.3 at baseline; improved to [...] - Continue daily vit D 1000 U; 63229 U to be ordered on 06/30 if still admitted - Renally dose medications and avoid nephrotoxic agents Assessment & Plan (06/27/2025 3:08 PM EDT): - MELD 3.0: 26 on 06/27 - [...] - Continue daily vit D 1000 U; 85507 U to be ordered on 06/30 if still admitted - Renally dose medications and avoid nephrotoxic agents Assessment & Plan (06/26/2025 3:57 PM EDT): - MELD 3.0: 27 on 06/26 - [...] - Continue daily vit D 1000 U; 15375 U to be ordered on 06/30 if still admitted - Renally dose medications and avoid nephrotoxic agents Assessment & Plan (06/26/2025 2:33 AM EDT): MELD 3.0: 31 at 06/25/2025 3:00 PM [...] daily, Vit D 1000 U daily and 34463 U weekly (Sundays) PLAN: - Admitted to acute under attending Dr. Loyola for further workup - Trend creatinine on [...] - Continue daily vit D 1000 U; 67093 U to be ordered on 06/30 if still admitted - Renally dose medications and avoid nephrotoxic agents Irritable bowel syndrome wit h both constipation and diarrhea 11/25/2022 Carpal tunnel syndrome 11/25/2022 Hyperlipidemia 07/17/2021 Assessment & Plan (07/08/2025 8:55 AM EDT): - Chronic; Continue to hold Crestor Assessment & Plan (07/07/2025 12:59 PM EDT): - Chronic; Continue to hold Crestor Assessment & Plan (07/06/2025 7:03 AM EDT): - Chronic; Continue to hold Crestor Assessment & Plan (07/05/2025 8:28 AM EDT): - Chronic; Continue to hold Crestor Assessment & Plan (07/04/2025 9:28 AM EDT): - Chronic; Continue to hold Crestor Assessment & Plan (07/03/2025 6:57 AM EDT): - Chronic; Continue to hold Crestor Assessment & Plan (07/02/2025 9:13 AM EDT): - Chronic; Continue to hold Crestor Assessment & Plan (07/01/2025 8:17 AM EDT): - Chronic; Continue to hold Crestor Assessment & Plan (06/30/2025 1:48 PM EDT): - Chronic; Continue to hold Crestor Assessment & Plan (06/29/2025 11:21 AM EDT): - Chronic; Continue to hold Crestor Assessment & Plan (06/29/2025 8:30 AM EDT): - Chronic; Continue to hold Crestor Assessment & Plan (06/27/2025 3:08 PM EDT): - Chronic; Crestor discontinued at most recent nephrology appointment PLAN - Continue to hold Crestor Assessment & Plan (06/26/2025 3:57 PM EDT): - Chronic; Crestor discontinued at most recent nephrology appointment PLAN - Continue to hold Crestor Assessment & Plan (06/26/2025 2:33 AM EDT): Crestor discontinued at most recent nephrology appointment; continue to hold JONATHAN treated with BiPAP 12/03/2019 Assessment & Plan (07/08/2025 8:55 AM EDT): - Chronic; on home BiPAP, per RT recs Assessment & Plan (07/07/2025 12:59 PM EDT): - Chronic; on home BiPAP, per RT recs Assessment & Plan (07/06/2025 7:03 AM EDT): - Chronic; on home BiPAP, per RT recs Assessment & Plan (07/05/2025 8:28 AM EDT): - Chronic; on home BiPAP, per RT recs Assessment & Plan (07/04/2025 9:28 AM EDT): - Chronic; on home BiPAP, per RT recs Assessment & Plan (07/03/2025 6:57 AM EDT): - Chronic; on home BiPAP, per RT recs Assessment & Plan (07/02/2025 9:13 AM EDT): - Chronic; on home BiPAP, per RT recs Assessment & Plan (07/01/2025 8:17 AM EDT): - Chronic; on home BiPAP, per RT recs Assessment & Plan (06/30/2025 8:40 AM EDT): - Chronic; on home BiPAP, per RT recs Assessment & Plan (06/29/2025 11:21 AM EDT): - Chronic; on home BiPAP, per RT recs Assessment & Plan (06/29/2025 8:30 AM EDT): - Chronic; on home BiPAP, per RT recs Assessment & Plan (06/27/2025 3:08 PM EDT): - Chronic; on BiPAP nightly at home - Sister is bringing home BiPAP this afternoon PLAN - Continue nightly BiPAP at 12/6 per RT recs; RT to adjust settings as appropriate Assessment & Plan (06/26/2025 3:57 PM EDT): - Chronic; on BiPAP nightly at home - Sister is bringing home BiPAP this afternoon PLAN - Continue nightly BiPAP at 12/6 per RT recs; RT to adjust settings as appropriate Assessment & Plan (06/26/2025 2:33 AM EDT): Continue nightly BiPAP at 12/6 per RT recs; RT to adjust settings as appropriate Heartburn 08/02/2019 Assessment & Plan (07/08/2025 8:55 AM EDT): - Reflux stable PLAN - Continue to hold omeprazole Assessment & Plan (07/07/2025 12:59 PM EDT): - Reflux stable PLAN - Continue to hold omeprazole Assessment & Plan (07/06/2025 7:03 AM EDT): - Reflux stable PLAN - Continue to hold omeprazole Assessment & Plan (07/05/2025 8:28 AM EDT): - Reflux stable PLAN - Continue to hold omeprazole Assessment & Plan (07/04/2025 9:28 AM EDT): - Reflux stable PLAN - Continue to hold omeprazole Assessment & Plan (07/03/2025 6:57 AM EDT): - Reflux stable PLAN - Continue to hold omeprazole Assessment & Plan (07/02/2025 9:13 AM EDT): - Reflux stable PLAN - Continue to hold omeprazole Assessment & Plan (07/01/2025 9:16 AM EDT): - Reflux stable PLAN - Continue to hold omeprazole Assessment & Plan (06/30/2025 1:48 PM EDT): - 06/28 DEMAND PLANNING MANAGER diet recommendations; see below - Patient continues to eat full diet without difficulty PLAN - Continue to hold omeprazole Assessment & Plan (06/29/2025 12:33 PM EDT): - DEMAND PLANNING MANAGER attempted to see patient 8/7; was in procedure - 06/28 DEMAND PLANNING MANAGER diet recommendations: IDDSI Level 7 - Regular and IDDSI Level 0- Thin PLAN - Continue to hold omeprazole Assessment & Plan (06/29/2025 8:30 AM EDT): - DEMAND PLANNING MANAGER attempted to see patient 8/7; was in procedure PLAN - Awaiting DEMAND PLANNING MANAGER eval - Continue to hold omeprazole Assessment & Plan (06/27/2025 3:08 PM EDT): - Chronic; advised to hold home omeprazole at most recent nephrology appointment due to concern for CARLOTTA PLAN - Continue to hold omeprazole - Ordered DEMAND PLANNING MANAGER consult; appreciate recommendations Assessment & Plan (06/26/2025 3:57 PM EDT): - Chronic; advised to hold home omeprazole at most recent nephrology appointment due to concern for [place] PLAN - Continue to hold omeprazole - Ordered DEMAND PLANNING MANAGER consult; appreciate recommendations Assessment & Plan (06/26/2025 2:33 AM EDT): Advised to hold omeprazole at most recent nephrology appointment due to CARLOTTA; continue to hold Chronic kidney disease, stage 3b 08/24/2018 Assessment & Plan (07/08/2025 1:55 PM EDT): - Cr stable at 1.16 - Paracentesis [...] Renally dose medications and avoid nephrotoxic agents Assessment & Plan (07/07/2025 12:59 PM EDT): - Cr stable at 1.2 - Paracentesis [...] Renally dose medications and avoid nephrotoxic agents Assessment & Plan (07/06/2025 11:50 AM EDT): - Completed albumin challenge on 07/03 - [...] Renally dose medications and avoid nephrotoxic agents Assessment & Plan (07/05/2025 1:06 PM EDT): - Completed albumin challenge on 07/03 - [...] Renally dose medications and avoid nephrotoxic agents Assessment & Plan (07/04/2025 11:12 AM EDT): - Completed albumin challenge on 07/03 - [...] Renally dose medications and avoid nephrotoxic agents Assessment & Plan (07/03/2025 8:24 AM EDT): - Creatinine 1.0-1.1 at baseline; Improved to [...] is scheduled to get one outpatient tomorrow Assessment & Plan (07/02/2025 5:19 PM EDT): - Creatinine 1.0-1.1 at baseline; worsened to [...] Renally dose medications and avoid nephrotoxic agents Assessment & Plan (07/01/2025 1:38 PM EDT): - Creatinine 1.1-1.3 at baseline; Improved to [...] Renally dose medications and avoid nephrotoxic agents Assessment & Plan (06/30/2025 1:48 PM EDT): - Creatinine 1.1-1.3 at baseline; slight increase [...] - Continue daily vit D 1000 U; 81325 U to be ordered on 06/30 if still admitted - Renally dose medications and avoid nephrotoxic agents Assessment & Plan (06/29/2025 12:33 PM EDT): - Creatinine 1.1-1.3 at baseline; improved to [...] - Continue daily vit D 1000 U; 87580 U to be ordered on 06/30 if still admitted - Renally dose medications and avoid nephrotoxic agents Assessment & Plan (06/29/2025 8:30 AM EDT): - Creatinine 1.1-1.3 at baseline; improved to [...] - Continue daily vit D 1000 U; 85984 U to be ordered on 06/30 if still admitted - Renally dose medications and avoid nephrotoxic agents Assessment & Plan (06/27/2025 3:08 PM EDT): - MELD 3.0: 26 on 06/27 - [...] - Continue daily vit D 1000 U; 32953 U to be ordered on 06/30 if still admitted - Renally dose medications and avoid nephrotoxic agents Assessment & Plan (06/26/2025 3:57 PM EDT): - MELD 3.0: 27 on 06/26 - [...] - Continue daily vit D 1000 U; 30211 U to be ordered on 06/30 if still admitted - Renally dose medications and avoid nephrotoxic agents Assessment & Plan (06/26/2025 2:33 AM EDT): MELD 3.0: 31 at 06/25/2025 3:00 PM [...] daily, Vit D 1000 U daily and 72453 U weekly (Sundays) PLAN: - Admitted to acute under attending Dr. Loyola for further workup - Trend creatinine on [...] - Continue daily vit D 1000 U; 55629 U to be ordered on 06/30 if still admitted - Renally dose medications and avoid nephrotoxic agents Physical debility 08/24/2018 Assessment & Plan (07/08/2025 8:55 AM EDT): - Patient has met with palliative care [...] GOC discussions - Palliative follow up outpatient Assessment & Plan (07/07/2025 12:59 PM EDT): - Patient has met with palliative care [...] GOC discussions - Palliative follow up outpatient Assessment & Plan (07/06/2025 7:03 AM EDT): - Patient at this time has elected to pursue Nursing Home Care placement and would like to speak with palliative care to learn more about their services - SW working to find LTC facility placement - palliative consulted PLAN - Delirium protocols - Continue Up to Chair TID, q4 turns - Ongoing GOC discussions Assessment & Plan (07/05/2025 8:28 AM EDT): - Patient at this time has elected to pursue Nursing Home Care placement and would like to speak with palliative care to learn more about their services - SW working to find LTC facility placement - palliative consulted PLAN - Delirium protocols - Continue Up to Chair TID, q4 turns - Ongoing GOC discussions Assessment & Plan (07/04/2025 9:28 AM EDT): - Patient at this time has elected to pursue [facility] placement and would like to speak with palliative care to learn more about their services - SW working to find LTC facility placement - palliative consulted PLAN - Delirium protocols - Continue Up to Chair TID, q4 turns - Ongoing GOC discussions Assessment & Plan (07/03/2025 8:24 AM EDT): - Patient at this time has elected to pursue [facility] placement and would like to speak with palliative care to learn more about their services - L Leg discomfort is improved PLAN - Delirium protocols - Continue Up to Chair TID, q4 turns - SW to meet with patient to discuss options further - Consult Palliative care - Ongoing GOC discussions Assessment & Plan (07/02/2025 5:19 PM EDT): - PTOT recs home health 6 days ago - Patient unable to be placed on transplant list if [facility] is primary address, [facility] be fine - Per transplant team: Patient needs a primary caregiver to go with her to see transplant SW to get placed onto list - After discussion with patient and family, sister is not able to care for her and neither is son at this time - Patient at this time has elected to pursue Nursing Home Care placement and would like to speak [...] consult AM 07/03 - Ongoing GOC discussions Assessment & Plan (07/01/2025 9:16 AM EDT): - PTOT recs home health - Patient and family have significant concern and would prefer [facility] or [facility] pending influence on ability to receive transplant - Patient endorsing some burning discomfort that begins in buttocks and radiates down lateral leg, does not feel as though she is getting moved much - Concerned with possible disorientation PLAN - Transplant service to evaluate today and determine if [facility] would be a barrier to future liver transplant - Delirium protocols - Up to Chair TID, q4 turns Assessment & Plan (06/30/2025 1:48 PM EDT): - Patient reports poor PO intake at [...] come tomorrow to discuss options with patient Assessment & Plan (06/29/2025 11:21 AM EDT): - Patient reports poor PO intake at home in s/o large-volume ascites - Family involved in and amenable to discussion of placement; concerned for declining ability to perform ADLs - PT/OT recommended home health; patient and family requested fpc facility PLAN - Plan for placement in long-term care Assessment & Plan (06/29/2025 8:30 AM EDT): - Patient reports poor PO intake at home in s/o large-volume ascites - Family involved in and amenable to discussion of placement; concerned for declining ability to perform ADLs - PT/OT recommended home health; patient and family requested [facility] facility PLAN - Plan for placement in long-term care Assessment & Plan (06/27/2025 3:08 PM EDT): - Patient reports poor PO intake in s/o large-volume ascites - Episode of severe debility the other day (couldn't use phone, had to go to neighbors for help) - Family involved in and amenable to discussion of placement; concerned for declining ability to perform ADLs PLAN - PT/OT recommended home health - Nutrition consulted; recs appreciated - Patient agreeable to [facility] facility Assessment & Plan (06/26/2025 3:57 PM EDT): - Patient reports poor PO intake in [...] vs long-term care with patient and family Assessment & Plan (06/25/2025 10:50 PM EDT): - Per family, transplant surgery requesting patient to be mostly independent with ADLs prior to transplant consideration - Patient reports poor PO intake due to persistent large volume ascites requiring weekly paracentesis - Family requesting help with care; would like to discuss inpatient facility, has had home health in the past PLAN: - PT/OT and nutrition consult ordered; recs appreciated Chronic obstructive pulmonary disease 08/22/2018 Assessment & Plan (07/08/2025 8:55 AM EDT): - Chronic; on home BiPAP, per RT recs Assessment & Plan (07/07/2025 12:59 PM EDT): - Chronic; on home BiPAP, per RT recs Assessment & Plan (07/06/2025 7:03 AM EDT): - Chronic; on home BiPAP, per RT recs Assessment & Plan (07/05/2025 8:28 AM EDT): - Chronic; on home BiPAP, per RT recs Assessment & Plan (07/04/2025 9:28 AM EDT): - Chronic; on home BiPAP, per RT recs Assessment & Plan (07/03/2025 6:57 AM EDT): - Chronic; on home BiPAP, per RT recs Assessment & Plan (07/02/2025 9:13 AM EDT): - Chronic; on home BiPAP, per RT recs Assessment & Plan (07/01/2025 8:17 AM EDT): - Chronic; on home BiPAP, per RT recs Assessment & Plan (06/30/2025 8:40 AM EDT): - Chronic; on home BiPAP, per RT recs Assessment & Plan (06/29/2025 11:21 AM EDT): - Chronic; on home BiPAP, per RT recs Assessment & Plan (06/29/2025 8:30 AM EDT): - Chronic; on home BiPAP, per RT recs Assessment & Plan (06/27/2025 3:08 PM EDT): - Chronic; on BiPAP nightly at home - Sister is bringing home BiPAP this afternoon PLAN - Continue nightly BiPAP at 12/ per RT recs; RT to adjust settings as appropriate Assessment & Plan (06/26/2025 3:57 PM EDT): - Chronic; on BiPAP nightly at home - Sister is bringing home BiPAP this afternoon PLAN - Continue nightly BiPAP at 12/6 per RT recs; RT to adjust settings as appropriate Assessment & Plan (06/26/2025 2:33 AM EDT): Continue nightly BiPAP at 12/6 per RT recs; RT to adjust settings as appropriate Coronary artery disease of n ative artery of [place] heart with stable angina pectoris 08/22/2018 Assessment & Plan (07/08/2025 8:55 AM EDT): - Chronic; Continue to hold Crestor Assessment & Plan (07/07/2025 12:59 PM EDT): - Chronic; Continue to hold Crestor Assessment & Plan (07/06/2025 7:03 AM EDT): - Chronic; Continue to hold Crestor Assessment & Plan (07/05/2025 8:28 AM EDT): - Chronic; Continue to hold Crestor Assessment & Plan (07/04/2025 9:28 AM EDT): - Chronic; Continue to hold Crestor Assessment & Plan (07/03/2025 6:57 AM EDT): - Chronic; Continue to hold Crestor Assessment & Plan (07/02/2025 9:13 AM EDT): - Chronic; Continue to hold Crestor Assessment & Plan (07/01/2025 8:17 AM EDT): - Chronic; Continue to hold Crestor Assessment & Plan (06/30/2025 1:48 PM EDT): - Chronic; Continue to hold Crestor Assessment & Plan (06/29/2025 11:21 AM EDT): - Chronic; Continue to hold Crestor Assessment & Plan (06/29/2025 8:30 AM EDT): - Chronic; Continue to hold Crestor Assessment & Plan (06/27/2025 3:08 PM EDT): - Chronic; Crestor discontinued at most recent nephrology appointment PLAN - Continue to hold Crestor Assessment & Plan (06/26/2025 3:57 PM EDT): - Chronic; Crestor discontinued at most recent nephrology appointment PLAN - Continue to hold Crestor Assessment & Plan (06/26/2025 2:33 AM EDT): Crestor discontinued at most recent nephrology appointment; continue to hold Rheumatoid arthritis with positive rheumatoid fa ctor 08/22/2018 Spondylosis of lumbar region without myelopathy or radiculopathy 08/22/2018 Lupus (systemic lupus erythematosus) 08/22/2018 Dysphagia 05/17/2018 Assessment & Plan (07/08/2025 8:55 AM EDT): - Reflux stable PLAN - Continue to hold omeprazole Assessment & Plan (07/07/2025 12:59 PM EDT): - Reflux stable PLAN - Continue to hold omeprazole Assessment & Plan (07/06/2025 7:03 AM EDT): - Reflux stable PLAN - Continue to hold omeprazole Assessment & Plan (07/05/2025 8:28 AM EDT): - Reflux stable PLAN - Continue to hold omeprazole Assessment & Plan (07/04/2025 9:28 AM EDT): - Reflux stable PLAN - Continue to hold omeprazole Assessment & Plan (07/03/2025 6:57 AM EDT): - Reflux stable PLAN - Continue to hold omeprazole Assessment & Plan (07/02/2025 9:13 AM EDT): - Reflux stable PLAN - Continue to hold omeprazole Assessment & Plan (07/01/2025 9:16 AM EDT): - Reflux stable PLAN - Continue to hold omeprazole Assessment & Plan (06/30/2025 1:48 PM EDT): - 06/28 DEMAND PLANNING MANAGER diet recommendations; see below - Patient continues to eat full diet without difficulty PLAN - Continue to hold omeprazole Assessment & Plan (06/29/2025 12:33 PM EDT): - DEMAND PLANNING MANAGER attempted to see patient 8/7; was in procedure - 06/28 DEMAND PLANNING MANAGER diet recommendations: IDDSI Level 7 - Regular and IDDSI Level 0- Thin PLAN - Continue to hold omeprazole Assessment & Plan (06/29/2025 8:30 AM EDT): - DEMAND PLANNING MANAGER attempted to see patient 8/7; was in procedure PLAN - Awaiting DEMAND PLANNING MANAGER eval - Continue to hold omeprazole Assessment & Plan (06/27/2025 3:08 PM EDT): - Chronic; advised to hold home omeprazole at most recent nephrology appointment due to concern for CARLOTTA PLAN - Continue to hold omeprazole - Ordered DEMAND PLANNING MANAGER consult; appreciate recommendations Assessment & Plan (06/26/2025 3:57 PM EDT): - Chronic; advised to hold home omeprazole at most recent nephrology appointment due to concern for CARLOTTA PLAN - Continue to hold omeprazole - Ordered DEMAND PLANNING MANAGER consult; appreciate recommendations Assessment & Plan (06/26/2025 2:33 AM EDT): Advised to hold omeprazole at most recent nephrology appointment due to CARLOTTA; continue to hold Diabetic peripheral neuropathy 01/07/2017 Assessment & Plan (07/08/2025 11:14 AM EDT): - Glucose 172 PLAN - Continue Glargine 24 U daily + resistant SSI - Continue to monitor glucose trends Assessment & Plan (07/07/2025 12:59 PM EDT): - Glucose 151 PLAN - Continue Glargine 24 U daily + resistant SSI - Continue to monitor glucose trends Assessment & Plan (07/06/2025 11:50 AM EDT): - Glucose 128 PLAN - Continue Glargine 24 U daily + resistant SSI - Continue to monitor glucose trends Assessment & Plan (07/05/2025 1:06 PM EDT): - Glucose 147 PLAN - Continue Glargine 24 U daily + resistant SSI - Continue to monitor glucose trends Assessment & Plan (07/04/2025 9:28 AM EDT): - Last POCT glucose 103 PLAN - Continue Glargine 24 U daily + resistant SSI - Continue to monitor glucose trends Assessment & Plan (07/03/2025 6:57 AM EDT): - Last POCT glucose 150 - 2 Units correction in last 24h none overnight PLAN - Continue Glargine 24 U daily + resistant SSI - Continue to monitor glucose trends Assessment & Plan (07/02/2025 9:13 AM EDT): - Last POCT glucose 115 - 6 Units correction in last 24h none overnight or today PLAN - Continue Glargine 24 U daily + resistant SSI - Continue to monitor glucose trends Assessment & Plan (07/01/2025 1:24 PM EDT): - Last POCT glucose 257, received 6 units correction - Prior to this had received 6 Units correction in last 24h PLAN - Continue Glargine 24 U daily + resistant SSI - Continue to monitor glucose trends Assessment & Plan (06/30/2025 1:48 PM EDT): - Last POCT glucose 128 - Received 10 units correction in past 24hrs - Hypoglycemia precautions ordered due to reported hypoglycemia at home PLAN - Continue Glargine 24 U daily + resistant SSI - Continue to monitor glucose trends Assessment & Plan (06/29/2025 12:33 PM EDT): - Last POCT glucose 144 - Received 0U correction this morning - Hypoglycemia precautions ordered due to reported hypoglycemia at home PLAN - Continue Glargine 24 U daily + resistant SSI - Continue to monitor glucose trends Assessment & Plan (06/29/2025 8:30 AM EDT): - Last POCT glucose 151 (before receiving 24U) - Received 2U correction this morning - Hypoglycemia precautions ordered due to reported hypoglycemia at home PLAN - Continue Glargine 24 U daily + resistant SSI - Continue to monitor glucose trends Assessment & Plan (06/27/2025 3:08 PM EDT): - BG 245 on arrival; last POCT glucose 108 - Glargine 24 U daily + resistant SSI ordered on admission - Hypoglycemia precautions ordered due to reported hypoglycemia at home PLAN - Continue to monitor BG trends; if any concerns over the afternoon, will adjust regimen as necessary Assessment & Plan (06/26/2025 3:57 PM EDT): - BG 245 on arrival; last POCT glucose 120 - Glargine 24 U daily + resistant SSI ordered on admission - Hypoglycemia precautions ordered due to reported hypoglycemia at home PLAN - Continue to monitor BG trends; if any concerns over the afternoon, will adjust regimen as necessary Assessment & Plan (06/25/2025 10:50 PM EDT): - Takes glargine 48 U daily and aspart 24 U TID w/meals + 12 U before small meals/snacks - Correction factor of 4:50>150 with aspart - BG 245 on arrival - Per patient and family, she has had episodes of profound hypoglycemia recently; reports as low as in the 50s PLAN: - Glargine 24 U daily + resistant SSI ordered on admission - Hypoglycemia precautions ordered due to reported hypoglycemia at home - Continue to monitor BG trends; adjust regimen as necessary Alopecia 09/03/2016 Resolved Problems Problem Noted Date Diagnosed Date Resolved Date Vasovagal syncope 07/01/2025 07/09/2025 Assessment & Plan (07/08/2025 1:55 PM EDT): - Cr stable at 1.16 - Paracentesis [...] Renally dose medications and avoid nephrotoxic agents Assessment & Plan (07/07/2025 12:59 PM EDT): - Cr stable at 1.2 - Paracentesis [...] Renally dose medications and avoid nephrotoxic agents Assessment & Plan (07/06/2025 11:50 AM EDT): - Completed albumin challenge on 07/03 - [...] Renally dose medications and avoid nephrotoxic agents Assessment & Plan (07/05/2025 1:06 PM EDT): - Completed albumin challenge on 07/03 - [...] Renally dose medications and avoid nephrotoxic agents Assessment & Plan (07/04/2025 11:12 AM EDT): - Completed albumin challenge on 07/03 - [...] Renally dose medications and avoid nephrotoxic agents Assessment & Plan (07/03/2025 8:24 AM EDT): - Creatinine 1.0-1.1 at baseline; Improved to [...] is scheduled to get one outpatient tomorrow Assessment & Plan (07/02/2025 5:19 PM EDT): - Creatinine 1.0-1.1 at baseline; worsened to [...] Renally dose medications and avoid nephrotoxic agents Assessment & Plan (07/01/2025 1:38 PM EDT): - Creatinine 1.1-1.3 at baseline; Improved to [...] Renally dose medications and avoid nephrotoxic agents Hypomagnesemia 06/26/2025 07/09/2025 Assessment & Plan (07/08/2025 11:14 AM EDT): - Mg 1.9 PLAN - Continue magnesium oxide 400 mg daily - Check Levels Daily Assessment & Plan (07/07/2025 12:59 PM EDT): - Mg 1.9 PLAN - Continue magnesium oxide 400 mg daily - Check Levels Daily Assessment & Plan (07/06/2025 11:50 AM EDT): - Mg 1.7 overnight - Patient received IV magnesium replacement PLAN - Continue magnesium oxide 400 mg daily - Check Levels Daily Assessment & Plan (07/05/2025 9:17 AM EDT): - Mg 1.8 overnight PLAN - Continue magnesium oxide 400 mg daily - Check Levels Daily Assessment & Plan (07/04/2025 9:28 AM EDT): - Mg 1.8 overnight and was replaced with an additional dose of PO magnesium 400mg PLAN - Continue magnesium oxide 400 mg daily - Check Levels Daily Assessment & Plan (07/03/2025 6:57 AM EDT): - Mg 2.0 today PLAN - Continue magnesium oxide 400 mg daily - Check Levels Daily Assessment & Plan (07/02/2025 9:13 AM EDT): - Mg 1.8 today - Elected to hold IV repletion given oral Mg regimen PLAN - Continue magnesium oxide 400 mg daily - Check Levels Daily Assessment & Plan (07/01/2025 9:16 AM EDT): - Stable at 1.9 PLAN - Continue magnesium oxide 400 mg daily - Check Levels Daily Assessment & Plan (06/30/2025 1:48 PM EDT): - 1.6 on admission; 06/30 was 1.5 - Given another 2g mag IV in AM PLAN - Continue magnesium oxide 400 mg daily - Continue to replete if remains low Assessment & Plan (06/29/2025 12:33 PM EDT): - 1.6 on admission; Stable at 1.8 8 - Given 2g mag IV on 06/27 PLAN - Continue magnesium oxide 400 mg daily - Plan to replete if it remains low Assessment & Plan (06/29/2025 8:30 AM EDT): - 1.6 on admission; 1.8 06/28 - Given 2g mag IV on 06/27 PLAN - Continue magnesium oxide 400 mg daily - Plan to replete if it remains low Assessment & Plan (06/27/2025 3:08 PM EDT): - 1.6 on admission; 1.5 06/27 PLAN - Continue magnesium oxide 400 mg daily - Will recheck magnesium level today and replete if it remains low Assessment & Plan (06/26/2025 3:57 PM EDT): - 1.6 on admission; 1.7 06/26 PLAN - Consider repletion if continues to downtrend LLQ abdominal pain 06/25/2025 Assessment & Plan (07/08/2025 1:55 PM EDT): - Cr stable at 1.16 - Paracentesis [...] Renally dose medications and avoid nephrotoxic agents Assessment & Plan (07/07/2025 12:59 PM EDT): - Cr stable at 1.2 - Paracentesis [...] Renally dose medications and avoid nephrotoxic agents Assessment & Plan (07/06/2025 11:50 AM EDT): - Completed albumin challenge on 07/03 - [...] Renally dose medications and avoid nephrotoxic agents Assessment & Plan (07/05/2025 1:06 PM EDT): - Completed albumin challenge on 07/03 - [...] Renally dose medications and avoid nephrotoxic agents Assessment & Plan (07/04/2025 11:12 AM EDT): - Completed albumin challenge on 07/03 - [...] Renally dose medications and avoid nephrotoxic agents Assessment & Plan (07/03/2025 8:24 AM EDT): - Creatinine 1.0-1.1 at baseline; Improved to [...] is scheduled to get one outpatient tomorrow Assessment & Plan (07/02/2025 5:19 PM EDT): - Creatinine 1.0-1.1 at baseline; worsened to [...] Renally dose medications and avoid nephrotoxic agents Assessment & Plan (07/01/2025 1:38 PM EDT): - Creatinine 1.1-1.3 at baseline; Improved to [...] Renally dose medications and avoid nephrotoxic agents Assessment & Plan (06/30/2025 1:48 PM EDT): - Creatinine 1.1-1.3 at baseline; slight increase [...] - Continue daily vit D 1000 U; 86799 U to be ordered on 06/30 if still admitted - Renally dose medications and avoid nephrotoxic agents Assessment & Plan (06/29/2025 12:33 PM EDT): - Creatinine 1.1-1.3 at baseline; improved to [...] - Continue daily vit D 1000 U; 66893 U to be ordered on 06/30 if still admitted - Renally dose medications and avoid nephrotoxic agents Assessment & Plan (06/29/2025 8:30 AM EDT): - Creatinine 1.1-1.3 at baseline; improved to [...] - Continue daily vit D 1000 U; 50876 U to be ordered on 06/30 if still admitted - Renally dose medications and avoid nephrotoxic agents Assessment & Plan (06/27/2025 3:08 PM EDT): - MELD 3.0: 26 on 06/27 - [...] - Continue daily vit D 1000 U; 56547 U to be ordered on 06/30 if still admitted - Renally dose medications and avoid nephrotoxic agents Assessment & Plan (06/26/2025 3:57 PM EDT): - MELD 3.0: 27 on 06/26 - [...] - Continue daily vit D 1000 U; 66358 U to be ordered on 06/30 if still admitted - Renally dose medications and avoid nephrotoxic agents Assessment & Plan (06/26/2025 2:33 AM EDT): MELD 3.0: 31 at 06/25/2025 3:00 PM [...] daily, Vit D 1000 U daily and 10134 U weekly (Sundays) PLAN: - Admitted to acute under attending Dr. Loyola for further workup - Trend creatinine on [...] - Continue daily vit D 1000 U; 57810 U to be ordered on 06/30 if still admitted - Renally dose medications and avoid nephrotoxic agents CARLOTTA (acute kidney injury) 06/25/2025 Other ascites 01/22/2025 07/03/2025 Altered mental state 01/08/2025 025 Hepatic encephalopathy 10/14/202407/03 Acute kidney injury superimp osed on stage 3b chronic kidney disease 10/14/2024 07/07/2025 Assessment & Plan (07/07/2025 12:59 PM EDT): - Cr stable at 1.2 - Paracentesis [...] Renally dose medications and avoid nephrotoxic agents Assessment & Plan (07/06/2025 11:50 AM EDT): - Completed albumin challenge on 07/03 - [...] Renally dose medications and avoid nephrotoxic agents Assessment & Plan (07/05/2025 1:06 PM EDT): - Completed albumin challenge on 07/03 - [...] Renally dose medications and avoid nephrotoxic agents Assessment & Plan (07/04/2025 11:12 AM EDT): - Completed albumin challenge on 07/03 - [...] Renally dose medications and avoid nephrotoxic agents Assessment & Plan (07/03/2025 8:24 AM EDT): - Creatinine 1.0-1.1 at baseline; Improved to [...] is scheduled to get one outpatient tomorrow Assessment & Plan (07/02/2025 5:19 PM EDT): - Creatinine 1.0-1.1 at baseline; worsened to [...] Renally dose medications and avoid nephrotoxic agents Assessment & Plan (07/01/2025 1:38 PM EDT): - Creatinine 1.1-1.3 at baseline; Improved to [...] Renally dose medications and avoid nephrotoxic agents Assessment & Plan (06/30/2025 1:48 PM EDT): - Creatinine 1.1-1.3 at baseline; slight increase [...] - Continue daily vit D 1000 U; 12310 U to be ordered on 06/30 if still admitted - Renally dose medications and avoid nephrotoxic agents Assessment & Plan (06/29/2025 12:33 PM EDT): - Creatinine 1.1-1.3 at baseline; improved to [...] - Continue daily vit D 1000 U; 94005 U to be ordered on 06/30 if still admitted - Renally dose medications and avoid nephrotoxic agents Assessment & Plan (06/29/2025 8:30 AM EDT): - Creatinine 1.1-1.3 at baseline; improved to [...] - Continue daily vit D 1000 U; 81156 U to be ordered on 06/30 if still admitted - Renally dose medications and avoid nephrotoxic agents Assessment & Plan (06/27/2025 3:08 PM EDT): - MELD 3.0: 26 on 06/27 - [...] - Continue daily vit D 1000 U; 22491 U to be ordered on 06/30 if still admitted - Renally dose medications and avoid nephrotoxic agents Assessment & Plan (06/26/2025 3:57 PM EDT): - MELD 3.0: 27 on 06/26 - [...] - Continue daily vit D 1000 U; 33298 U to be ordered on 06/30 if still admitted - Renally dose medications and avoid nephrotoxic agents Assessment & Plan (06/26/2025 2:33 AM EDT): MELD 3.0: 31 at 06/25/2025 3:00 PM [...] daily, Vit D 1000 U daily and 33724 U weekly (Sundays) PLAN: - Admitted to acute under attending Dr. Loyola for further workup - Trend creatinine on [...] - Continue daily vit D 1000 U; 69577 U to be ordered on 06/30 if still admitted - Renally dose medications and avoid nephrotoxic agents Fatty liver disease, nonalcoholic 10/26/2022 01/23/2025 Obesity (BMI 30.0-34.9) 06/27/202006/21 Assessment & Plan (07/08/2025 8:55 AM EDT): - Chronic; Complicates all aspects of care Assessment & Plan (07/07/2025 12:59 PM EDT): - Chronic; Complicates all aspects of care Assessment & Plan (07/06/2025 7:03 AM EDT): - Chronic; Complicates all aspects of care Assessment & Plan (07/05/2025 8:28 AM EDT): - Chronic; Complicates all aspects of care Assessment & Plan (07/04/2025 9:28 AM EDT): - Chronic; Complicates all aspects of care Assessment & Plan (07/03/2025 6:57 AM EDT): - Chronic; Complicates all aspects of care Assessment & Plan (07/02/2025 9:13 AM EDT): - Chronic; Complicates all aspects of care Assessment & Plan (07/01/2025 8:17 AM EDT): - Chronic; Complicates all aspects of care Assessment & Plan (06/30/2025 8:40 AM EDT): - Chronic; Complicates all aspects of care Assessment & Plan (06/29/2025 11:21 AM EDT): - Chronic; Complicates all aspects of care Assessment & Plan (06/29/2025 8:30 AM EDT): - Chronic; Complicates all aspects of care Assessment & Plan (06/27/2025 3:08 PM EDT): - Chronic; Complicates all aspects of care Assessment & Plan (06/26/2025 3:57 PM EDT): - Chronic; Complicates all aspects of care Assessment & Plan (06/26/2025 2:33 AM EDT): Complicates all aspects of care Memory loss 12/03/2019 03/06/2025 Colon cancer screening 09/20/201903/24 Overview (07/17/2021): Added automatically from request for surgery [id number] Mixed hearing loss of right ear 08/24/2019 05/07/2025 Tympanic membrane perforation 08/24/2019 05/07/2025 Bright red blood per rectum 08/02/2019 01/23/2025 Constipation 08/02/2019 01/23/2025 Epigastric pain 08/02/2019 07/03/2025 Intractable migraine with au ra without status migrainosus 05/16/2019 05/07/2025 Diabetic polyneuropathy asso ciated with type 2 diabetes mellitus 08/24/2018 03/24/2022 Lumbar stenosis with neurogenic claudication 8 05/07/2025 ETD (eustachian tube dysfunction) 07/13/2018 07/03/2025 Chronic throat clearing 05/17/2018 03/03/2025 Laryngopharyngeal reflux (LPR) 05/17/2018 01/23/2025 Nasal septal deviation 05/17/201801/23 Nasal turbinate hypertrophy 05/17/2018 01/23/2025 Encounters Date Type Department Care Team Description 07/31/2025 Travel 07/25/2025 1:20 PM EDT - 07/25/2025 11:59 PM EDT Hospital Encounter [facility] [address] [place] [address] Discharge Disposition: Home or Self Care 07/25/2025 8:57 AM EDT - 07/25/2025 1:19 PM EDT Hospital Encounter [facility] Interventional [facility]iology [address] [place] [address] Kandice Silva, RN Pleural effusion associated with hepatic disorder (Primary Dx); Shortness of breath; Pleural effusion; Other ascites Discharge Disposition: Home or Self Care 07/25/2025 Travel 07/24/2025 Travel 07/19/2025 Patient Outreach [facility] [address] [facility], [address] [place] [address] Jeaneth Oscar LPN TCM 07/18/2025 12:08 PM EDT - 07/18/2025 11:59 PM EDT Hospital Encounter [facility] [address] [place] [address] Discharge Disposition: Home or Self Care 07/18/2025 9:08 AM EDT - 07/18/2025 12:07 PM EDT Hospital Encounter [facility] [address] [place] [address] Stu Samayoa Shortness of breath; Pleural effusion; Other ascites Discharge Disposition: Home or Self Care 07/18/2025 Travel 07/11/2025 12:10 PM EDT - 07/11/2025 11:59 PM EDT Hospital Encounter [facility] [address] [place] [address] Discharge Disposition: Home or Self Care 07/11/2025 9:01 AM EDT - 07/11/2025 12:09 PM EDT Hospital Encounter [facility] [address] [place] [address] Stacy Houston, RN Shortness of breath; Pleural effusion; Other ascites Discharge Disposition: Home or Self Care 07/11/2025 Travel 07/10/2025 Patient Outreach POP[facility] [address], [address] [place] [address] Monique Tapia, PSYCHIATRY RESIDENT [facility] 07/07/[address] [address] Lisa Acuna, IRRIGATOR [employer], DNP ETD (Eustachian tube dysfunction), bilateral 07/04/2025 Travel 07/03/2025 Travel 06/27/2025 Travel 06/26/2025 Patient Outreach [facility] [address], [address] [place] [address] Alina Lovett, RN Link 06/25/2025 2:14 PM EDT - 07/09/2025 1:19 PM EDT Hospital Encounter [facility] Inpatient [address] [place] [address] Kadie Mauro MD Maguet, Chandler A, MD Marks, Sarah T, MD Kudrimoti, Archana M, MD CARLOTTA (acute kidney injury) (CMS/HCC) (Primary Dx); Acute kidney injury superimposed on stage 3b chronic kidney disease (CMS/HCC); Chronic kidney disease, stage 3b (CMS/HCC); Cirrhosis of liver with ascites, unspecified hepatic cirrhosis type (CMS/HCC); Hx of spontaneous bacterial peritonitis; Physical debility; Pancytopenia; Self-care deficit; Pleural effusion; Shortness of breath; Other ascites; Alcoholic cirrhosis of liver with ascites ([facility]/HCC) Discharge Disposition: Home or Self Care 06/25/2025 1:00 PM EDT Office Visit [facility] Nephrology, Bone & Mineral Metabolism [address], [address] [place] [address] Arnulfo Joy MD Cirrhosis of liver with ascites, unspecified hepatic cirrhosis type ([facility]/HCC) (Primary Dx); CARLOTTA (acute kidney injury) ([facility]); Chronic kidney disease, stage 3b ([facility]); Type 2 diabetes mellitus with hyperglycemia, with long-term current use of insulin ([facility]) 06/25/2025 Travel 06/23/2025 Orders Only External Location [address] [place] [address] Kandice Maldonado, IR[employer]IGATOR [employer] 06/23/2025 Orders Only External Location [address] [place] [address] Kandice Maldonado, IRRIGATOR [employer] 06/23/2025 Orders Only External Location [address] [place] [address] Kandice Maldonado, IRRIGATOR [employer] 06/23/2025 Refill [facility] Bone & Mineral Metabolism [address] [facility], [address] [place] [address] Ar Dominique MD Vitamin D deficiency 06/21/2025 Telephone [facility] [address] [place] [address] Alvarez Ordaz MD HCN Clinical Concern/Question 06/20/2025 1:04 PM EDT - 06/20/2025 11:59 PM EDT Hospital Encounter [facility] [address] [place] [address] Discharge Disposition: Home or Self Care 06/20/2025 9:03 AM EDT - 06/20/2025 1:03 PM EDT Hospital Encounter [facility] Inter[facility] Radiology [address] [place] [address] Shanthi Rooney Other ascites Discharge Disposition: Home or Self Care 06/20/2025 Telephone [facility] [address] [place] [address] Alvarez Ordaz MD 06/20/2025 Orders Only [facility] Vascular Interventional Radiology [address] [place] [address] Preeti Andersen S, IRRIGATOR [employer] Other ascites (Primary Dx) 06/20/2025 Travel 06/17/2025 Telephone [facility] Endocrinology [address] [place] [address] Deysi Antonio MD 06/14/2025 Telephone [facility] [address] [place] [address] Alvarez Ordaz MD 06/14/2025 Orders Only [facility] [address] [place] [address] Alvarez Ordaz MD 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) (CMS/HCC) (Primary Dx) 06/14/2025 Orders Only [facility] [address] [place] [address] Cheeks, Marianna N, IRRIGATOR [employer] Shortness of breath (Primary Dx); Pleural effusion; Other ascites 06/14/2025 Telephone [facility] [address] [place] [address] Alvarez Ordaz MD 06/14/2025 Orders Only [facility] [address] [place] [address] Cheeks, Marianna N, IR[employer]IGATOR [employer] Other ascites (Primary Dx); Pleural effusion; Shortness of breath; Alcoholic cirrhosis of liver with ascites (CMS/HCC) 06/13/2025 1:32 PM EDT - 06/13/2025 11:59 PM EDT Hospital Encounter [facility] [address] [place] [address] Discharge Disposition: Home or Self Care 06/13/2025 10:56 AM EDT - 06/13/2025 1:31 PM EDT Hospital Encounter [facility] Inter[facility] Radiology [address] [place] [address] Alvarez Mcclure Other ascites Discharge Disposition: Home or Self Care 06/13/2025 Travel 06/12/2025 Travel 06/12/2025 Orders Only [facility] [address] [place] [address] Alvarez Ordaz MD 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) (CMS/HCC) (Primary Dx); Protein malnutrition (CMS/HCC); Weight loss; Cognitive impairment 06/11/2025 11:20 AM EDT Office Visit [facility] [address] [phone] Octavia Herrera, PA Hepatic encephalopathy (CMS/HCC) (Primary Dx); 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 06/11/2025 10:30 AM EDT Social Work [facility] [address] [address] Lea Reilly LCSW 06/11/2025 Travel 06/10/2025 Results Follow-Up [facility] [address] [place] [address] Alvarez Ordaz MD 06/09/2025 [facility] [employer] [facility] [address] [facility], [address] [place] [address] Ar Dominique MD Chronic kidney disease, stage 3b (CMS/HCC) 06/06/2025 11:20 AM EDT - 06/06/2025 11:59 PM EDT Hospital Encounter [facility] [address] [place] [phone] Discharge Disposition: Home or Self Care 06/06/2025 7:58 AM EDT - 06/06/2025 11:19 AM EDT Hospital Encounter [facility] Inter[facility] [address] [place] [address] Golden Wilhelm RN Other ascites Discharge Disposition: Home or Self Care 06/06/2025 Travel 06/05/2025 2:00 PM EDT Office Visit [facility] [address] [place] [phone] Alvarez Ordaz MD Medicare annual wellness visit, initial (Primary Dx); Coronary artery disease of [place] artery of [place] heart with stable angina pectoris (CMS/HCC); Diabetic [...] Protein malnutrition (CMS/HCC) 06/05/2025 Travel 06/01/2025 Refill [employer] [facility] [address] [facility], [address] [place] [phone] Ar Dominique MD Chronic kidney disease, stage 3b (CMS/HCC) 06/01/2025 Refill [facility] [address] [facility] [address] [place] [address] Octavia Herrera PA 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) (CMS/HCC) 05/31/2025 12:36 PM EDT - 05/31/2025 8:07 PM EDT Emergency [facility] Emergency [facility] [address] [place] [address] Torrie Turner MD Katirji, Linda Y, MD Altered mental status, unspecified altered mental status type (Primary Dx) Discharge Disposition: Home or Self Care 05/31/2025 Travel 05/30/2025 8:58 AM EDT - 05/30/2025 11:59 PM EDT Hospital Encounter [facility] [address] [place] [address] Shirley Remy RN Other ascites; Type 2 diabetes mellitus with hyperglycemia, with long-term current use of insulin (CMS/HCC); Chronic kidney disease, stage 3b (CMS/HCC) Discharge Disposition: Home or Self Care 05/30/2025 Travel 05/29/2025 Patient Outreach [facility] [address], [address] [place] [phone] Tamera Isabel LPN AWV 05/29/2025 Travel 05/28/2025 Travel 05/23/2025 12:19 PM EDT - 05/23/2025 11:59 PM EDT Hospital Encounter [facility] [address] [place] [address] Discharge Disposition: Home or Self Care 05/23/2025 8:48 AM EDT - 05/23/2025 12:18 PM EDT Hospital Encounter [facility] [address] [place] [address] Kael Mohan, RN Other ascites Discharge Disposition: Home or Self Care 05/23/2025 8:31 AM EDT - 05/23/2025 8:47 AM EDT Hospital Encounter [facility] [address] [place] [address] Kael Mohan, RN Other ascites; End-stage liver disease (CMS/HCC); Type 2 diabetes mellitus with hyperglycemia, with long-term current use of insulin (CMS/HCC) Discharge Disposition: Home or Self Care 05/23/2025 Orders Only Merissa Valencia [facility] [address] [place] [phone] Enmanuel Wetzel MD 05/23/2025 Results Follow-Up [facility] [address] [place] [address] Wilma Arana RN 05/23/2025 Travel 05/22/2025 Travel 05/21/2025 [facility] [address] [place] [address] Alvarez Ordaz MD 05/21/2025 [facility] [address] [facility], [address] [place] [address] Ar Dominique MD Chronic kidney disease, stage 3b (CMS/HCC) 05/18/2025 Travel 05/17/2025 9:20 AM EDT Office Visit [facility] [address] [place] [address] Enmanuel Wetzel MD Type 2 diabetes mellitus with hyperglycemia, with long-term current use of insulin ([facility]) (Primary Dx); Chronic kidney disease, stage 3b ([facility]); Dyslipidemia 05/16/2025 11:04 AM EDT - 05/16/2025 11:59 PM EDT Hospital Encounter [facility] [address] [place] [address] Discharge Disposition: Home or Self Care 05/16/2025 8:01 AM EDT - 05/16/2025 11:03 AM EDT Hospital Encounter [facility] [address] [place] [address] Kandice Silva, RN Other ascites Discharge Disposition: Home or Self Care 05/16/2025 Telephone [facility] [address] [place] [address] Tyler Babin 05/16/2025 Telephone [facility] [address] [place] [address] Tyler Babin 05/16/2025 Travel 05/14/2025 [facility] [address] [place] [address] Kacie Buckley APRN Hypomagnesemia 05/10/2025 5:08 PM EDT - 05/10/2025 11:59 PM EDT Hospital Encounter [facility] [address] [place] [phone] Discharge Disposition: Home or Self Care 05/10/2025 1:00 PM EDT - 05/10/2025 5:07 PM EDT Hospital Encounter [facility] [address] [place] [phone] Abdoul Cuello 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) (CMS/HCC) (Primary Dx); Other ascites Discharge Disposition: Home or Self Care 05/10/2025 Travel 05/09/2025 Travel 05/08/2025 Results Follow-Up [facility] [address] [place] [address] Wilma Arana RN 05/07/2025 12:09 PM EDT - 05/07/2025 11:59 PM EDT Hospital Encounter [facility] [address] [place] [phone] End-stage liver disease (CMS/HCC) Discharge Disposition: Home or Self Care 05/07/2025 10:40 AM EDT Office Visit [facility] [address] [place] [address] Octavia Herrera, PA Liver cirrhosis secondary to NAIUD (nonalcoholic steatohepatitis) (CMS/HCC) (Primary Dx); Hepatic encephalopathy (CMS/HCC); Secondary esophageal varices without bleeding (CMS/HCC); Moderate protein-calorie malnutrition (CMS/HCC); Other ascites; Physical deconditioning 05/07/2025 Travel 05/04/[address] [address] Alvarez Ordaz MD Altered mental status, unspecified altered mental status type 05/03/2025 1:50 PM EDT - 05/03/2025 6:33 PM EDT Emergency [facility] Emergency Department [address] [place] [phone] Ck Whitten MD Transient alteration of awareness (Primary Dx) Discharge Disposition: Home or Self Care 05/03/2025 Travel 05/02/2025 9:16 AM EDT - 05/02/2025 11:59 PM EDT Hospital Encounter [facility] [address] [place] [address] Allison Mckee Other ascites Discharge Disposition: Home or Self Care 05/02/2025 Travel 04/30/2025 Travel from Last 3 Months Immunizations Immunization Administration [...] 2 Obesity Son 2 Asthma [facility] 3 [facility] Son 3 Jp Ordaz Mental illness Son 3 [facility] Son 4 [place] Diabetes Son 4 [place] Relation Name Status Comments Father Eliseo Singletary Maternal Grandfather Maternal Grandmother Christine Dick Mother Karime Singletary Alive Other Paternal Grandfather Paternal Grandmother Anish Singletary Sister Lj Bernal Alive Son 1 Alive Son 2 Alive Son 3 Jp Ordaz Alive Son 4 Viral Ordaz Alive Social History Tobacco Use Types Packs/Day [...] you attend chur ch or voodoo services? Never 05/29/2025 Do you [...] drink first t kennedy in the morning ([employer]) to steady your nerves or to [...] Sign Reading Time Taken Comments Blood Pressure 109/61 07/25/2025 2:00 PM EDT Pulse 69 07/25/2025 2:00 PM EDT Temperature 36.5 C (97.7 F) 07/25/2025 1:02 PM EDT Respiratory Rate 15 07/25/2025 2:00 PM EDT Oxygen Saturation 95% 07/25/2025 2:00 PM EDT Inhaled Oxygen Concentration - - Weight 85.1 kg (187 lb 9.8 oz) 07/25/2025 9:20 A M EDT Height 165.1 cm (5' 5 ) 07/25/2025 9:20 AM EDT Body Mass Index 31.22 07/25/2025 9:20 AM EDT Plan of Treatment Upcoming Encounters Date Type Department Care Team (Late st Contact Info) Description 08/01/2025 10:00 AM EDT Appointment [facility] [address] [place] [address] 08/01/2025 11:00 AM EDT Appointment [facility] [address] [place] [address] 08/08/2025 11:15 AM EDT Appointment [facility] [address] [place] [address] 08/08/2025 12:15 PM EDT Appointment [facility] [address] [place] [address] 2025 10:00 AM EDT Appointment [facility] [address] [place] [address] 2025 11:00 AM EDT Appointment [facility] [address] [place] [address] 08/20/2025 9:30 AM EDT Clinical Support [facility] [address] [place] [address] 08/20/2025 10:30 AM EDT Social Work [facility] [address] [place] [address] [place] [address] 08/20/2025 11:00 AM EDT Office Visit [facility] [address] [place] [address] Jude Duque MD [address] [place] [phone] Health Maintenance Due Date Last Done Comments Dental Prophylaxis 1962 Dental X-Ray: Bitewings 1962 Dental X-Ray: Full Mouth 1962 [facility]-/Child/Adol SDOH Screenings 1962 [id number] Vaccine (#1) 1967 Diabetes: Dental Exam 1972 [facility]-Hepatitis A Vaccines (1 of 2 - Risk 2-dose series) 1981 CT Colonography 2007 FIT-DNA 2007 FIT 2007 FOBT 2007 Sigmoidoscopy 2007 [facility]-Pneumococcal Vaccine: 50+ Years (2 of 2 - PCV) 08/23/2019 08/23/2018 [facility]-RSV Vaccine: 60+ Years or (1 - Risk 60-74 years 1-dose series) 2022 Dental Oral Exam 06/17/2025 12/17/2024 [facility]-Influenza Vaccine (#1) 07/22/202509/10, 10/01/2021, 02/11/2021, Additional history exists [facility]-Diabetes: Hemoglobin A1C 08/22/2025 05/23/2025, 01/08/2025, 10/22/2024, Additional history exists [facility]-Bone Density Scan 11/07/2025 11/07/2024 [facility]- SDOH Screenings 12/27/2025 [facility]-Adult SDOH Screenings 12/27/2025 06/26/2025 [facility]-Breast Cancer Screening 01/25/2026 03/0 05/2024, 01/26/2024, [...] 2023, 10/02/2024, 10/28/2022 [facility]-Obesity Intervention Completed 025, 07/18/2025, 07/11/2025, Additional history exists HPV Vaccines Aged Out [...] EDT Other ascites US GUIDED THORACENTESIS Routine 07/25/2025 12:55 PM EDT Shortness of breath Pleural effusion BODY FLUID, CYTOSPIN, PATHOLOGIST INTERPRETATION Routine 07/25/2025 11:52 AM EDT TOTAL PROTEIN, PERITONEAL FLUID Routine 07/25/2025 11:52 AM EDT BODY FLUID CELL COUNT W/ MANUAL DIFFERENTIAL Routine 07/25/2025 11:52 AM EDT XR CHEST 1 VIEW STAT 07/18/2025 12:52 PM EDT US GUIDED ABDOMINAL PARACENTESIS Routine 07/18/2025 11:15 AM EDT Other ascites US GUIDED THORACENTESIS Routine 07/18/2025 11:15 AM EDT Shortness of breath Pleural effusion BODY FLUID, CYTOSPIN, PATHOLOGIST INTERPRETATION Routine 07/18/2025 10:23 AM EDT GLUCOSE, PERITONEAL FLUID Routine 07/18/2025 10:23 AM EDT TOTAL PROTEIN, PERITONEAL FLUID Routine 07/18/2025 10:23 AM EDT BODY FLUID CELL COUNT W/ MANUAL DIFFERENTIAL Routine 07/18/2025 10:23 AM EDT XR CHEST 1 VIEW STAT 07/11/2025 12:21 PM EDT US ABDOMEN FOCUSED REGION Routine 07/11/2025 11:41 AM EDT Other ascites US GUIDED THORACENTESIS Routine 07/11/2025 11:41 AM EDT Shortness of breath Pleural effusion POCT GLUCOSE METER UNSOLICITED RESULTS Routine 07/09/2025 11:23 AM EDT POCT GLUCOSE METER UNSOLICITED RESULTS Routine 07/09/2025 8:10 AM EDT PROTHROMBIN TIME(PT) / INR Pending Discharge 07/09/2025 5:52 AM EDT POCT GLUCOSE METER UNSOLICITED RESULTS Routine 07/09/2025 3:59 AM EDT COMPREHENSIVE METABOLIC PANEL, PLASMA Pending Discharge 07/09/2025 3:22 AM EDT PHOSPHORUS, PLASMA Pending Discharge 07/09/2025 3:22 AM EDT MAGNESIUM, PLASMA Pending Discharge 07/09/2025 3:22 AM EDT CBC WITH AUTO DIFFERENTIAL Pending Discharge 07/09/2025 3:22 AM EDT POCT GLUCOSE METER UNSOLICITED RESULTS Routine 07/08/2025 8:37 PM EDT POCT GLUCOSE METER UNSOLICITED RESULTS Routine 07/08/2025 4:42 PM EDT POCT GLUCOSE METER UNSOLICITED RESULTS Routine 07/08/2025 11:28 AM EDT POCT GLUCOSE METER UNSOLICITED RESULTS Routine 07/08/2025 8:02 AM EDT AMMONIA, PLASMA Routine 07/08/2025 4:21 AM EDT PROTHROMBIN TIME(PT) / INR Routine 07/08/2025 4:21 AM EDT COMPREHENSIVE METABOLIC PANEL, PLASMA Routine 07/08/2025 4:21 AM EDT PHOSPHORUS, PLASMA Routine 07/08/2025 4: 21 AM EDT MAGNESIUM, PLASMA Routine 07/08/2025 4:2 1 AM EDT CBC WITH AUTO DIFFERENTIAL Routine 07/08/2025 4:21 AM EDT POCT GLUCOSE [...] / INR Routine 07/07/2025 3:30 AM EDT COMPREHENSIVE METABOLIC PANEL, PLASMA Routine 07/07/2025 3:30 AM EDT PHOSPHORUS, PLASMA Routine 07/07/2025 3: 30 AM EDT MAGNESIUM, PLASMA Routine 07/07/2025 3:3 0 AM EDT CBC WITH AUTO DIFFERENTIAL Routine 07/07/2025 3:30 AM EDT POCT GLUCOSE METER UNSOLICITED RESULTS Routine 07/06/2025 8:03 PM EDT POCT GLUCOSE METER UNSOLICITED RESULTS Routine 07/06/2025 4:54 PM EDT POCT GLUCOSE METER UNSOLICITED RESULTS Routine 07/06/2025 11:37 AM EDT POCT GLUCOSE METER UNSOLICITED RESULTS Routine 07/06/2025 8:19 AM EDT PROTHROMBIN TIME(PT) / INR Routine 07/06/2025 2:31 AM EDT COMPREHENSIVE METABOLIC PANEL, PLASMA Routine 07/06/2025 2:31 AM EDT PHOSPHORUS, PLASMA Routine 07/06/2025 2: 31 AM EDT MAGNESIUM, PLASMA Routine 07/06/2025 2:3 1 AM EDT CBC WITH AUTO DIFFERENTIAL Routine 07/06/2025 2:31 AM EDT POCT GLUCOSE METER UNSOLICITED RESULTS Routine 07/05/2025 8:06 PM EDT POCT GLUCOSE METER UNSOLICITED RESULTS Routine 07/05/2025 4:46 PM EDT POCT GLUCOSE METER UNSOLICITED RESULTS Routine 07/05/2025 11:53 AM EDT POCT GLUCOSE METER UNSOLICITED RESULTS Routine 07/05/2025 7:52 AM EDT PROTHROMBIN TIME(PT) / INR Routine 07/05/2025 4:01 AM EDT COMPREHENSIVE METABOLIC PANEL, PLASMA Routine 07/05/2025 4:01 AM EDT PHOSPHORUS, PLASMA Routine 07/05/2025 4: 01 AM EDT MAGNESIUM, PLASMA Routine 07/05/2025 4:0 1 AM EDT CBC WITH AUTO DIFFERENTIAL Routine 07/05/2025 4:01 AM EDT POCT GLUCOSE [...] EDT Pleural effusion Shortness of breath BODY FLUID, CYTOSPIN, PATHOLOGIST INTERPRETATION Routine 07/04/2025 10:48 AM EDT LACTATE DEHYDROGENASE, PLEURAL FLUID Routine 07/04/2025 10:48 AM EDT TOTAL PROTEIN, PLEURAL FLUID Routine 07/04/2025 10:48 AM EDT BODY FLUID CELL COUNT W/ MANUAL DIFFERENTIAL Routine 07/04/2025 10:48 AM EDT BODY FLUID CULTURE AND GRAM STAIN Routine 07/04/2025 10:48 AM EDT BODY FLUID, CYTOSPIN, PATHOLOGIST INTERPRETATION Routine 07/04/2025 10:08 AM EDT TOTAL PROTEIN, PERITONEAL FLUID Routine 07/04/2025 10:08 AM EDT GLUCOSE, PERITONEAL FLUID Routine 07/04/2025 10:08 AM EDT LACTATE DEHYDROGENASE, PERITONEAL FLUID Routine 07/04/2025 10:08 AM EDT BODY FLUID CELL COUNT W/ MANUAL DIFFERENTIAL Routine 07/04/2025 10:08 AM EDT BODY FLUID CULTURE AND GRAM STAIN Routine 07/04/2025 10:08 AM EDT POCT GLUCOSE METER UNSOLICITED RESULTS Routine 07/04/2025 8:07 AM EDT PROTHROMBIN TIME(PT) / INR Routine 07/04/2025 4:47 AM EDT COMPREHENSIVE METABOLIC PANEL, PLASMA Routine 07/04/2025 4:47 AM EDT PHOSPHORUS, PLASMA Routine 07/04/2025 4: 47 AM EDT MAGNESIUM, PLASMA Routine 07/04/2025 4:4 7 AM EDT CBC WITH AUTO DIFFERENTIAL Routine 07/04/2025 4:47 AM EDT POCT GLUCOSE METER UNSOLICITED RESULTS Routine 07/03/2025 8:36 PM EDT XR ABDOMEN 1 VIEW Routine 07/03/2025 7:0 2 PM EDT XR CHEST 1 VIEW Routine 07/03/2025 7:02 PM EDT POCT GLUCOSE METER UNSOLICITED RESULTS Routine 07/03/2025 4:46 PM EDT POCT GLUCOSE METER UNSOLICITED RESULTS Routine 07/03/2025 11:50 AM EDT POCT GLUCOSE METER UNSOLICITED RESULTS Routine 07/03/2025 8:14 AM EDT PROTHROMBIN TIME(PT) / INR Routine 07/03/2025 4:25 AM EDT COMPREHENSIVE METABOLIC PANEL, PLASMA Routine 07/03/2025 4:25 AM EDT PHOSPHORUS, PLASMA Routine 07/03/2025 4: 25 AM EDT MAGNESIUM, PLASMA Routine 07/03/2025 4:2 5 AM EDT CBC WITH AUTO DIFFERENTIAL Routine 07/03/2025 4:25 AM EDT POCT GLUCOSE METER UNSOLICITED RESULTS Routine 07/02/2025 8:19 PM EDT POCT GLUCOSE METER UNSOLICITED RESULTS Routine 07/02/2025 4:53 PM EDT SODIUM, URINE, RANDOM Routine 07/02/2025 12:42 PM EDT OSMOLALITY, URINE Routine 07/02/2025 12:42 PM EDT CREATININE, RANDOM URINE Routine 07/02/2025 12:42 PM EDT UREA NITROGEN, RANDOM URINE Routine 07/02/2025 12:42 PM EDT POCT GLUCOSE METER UNSOLICITED RESULTS Routine 07/02/2025 12:04 PM EDT POCT GLUCOSE METER UNSOLICITED RESULTS Routine 07/02/2025 8:20 AM EDT COMPREHENSIVE METABOLIC PANEL, PLASMA Routine 07/02/2025 4:19 AM EDT PHOSPHORUS, PLASMA Routine 07/02/2025 4: 19 AM EDT MAGNESIUM, PLASMA Routine 07/02/2025 4:1 9 AM EDT CBC WITH AUTO DIFFERENTIAL Routine 07/02/2025 4:19 AM EDT POCT GLUCOSE METER UNSOLICITED RESULTS Routine 07/01/2025 8:01 PM EDT POCT GLUCOSE METER UNSOLICITED RESULTS Routine 07/01/2025 4:37 PM EDT POCT GLUCOSE METER UNSOLICITED RESULTS Routine 07/01/2025 12:10 PM EDT PROTHROMBIN TIME(PT) / INR STAT 07/01/2025 9:08 AM EDT POCT GLUCOSE METER UNSOLICITED RESULTS Routine 07/01/2025 8:04 AM EDT COMPREHENSIVE METABOLIC PANEL, PLASMA Routine 07/01/2025 12:00 AM EDT PHOSPHORUS, PLASMA Routine 07/01/2025 12:00 AM EDT MAGNESIUM, PLASMA Routine 07/01/2025 12:00 AM EDT CBC WITH AUTO DIFFERENTIAL Routine 07/01/2025 12:00 AM EDT POCT GLUCOSE METER UNSOLICITED RESULTS Routine 06/30/2025 8:52 PM EDT POCT GLUCOSE METER UNSOLICITED RESULTS Routine 06/30/2025 4:40 PM EDT POCT GLUCOSE METER UNSOLICITED RESULTS Routine 06/30/2025 11:48 AM EDT AMMONIA, PLASMA Routine 06/30/2025 8:53 AM EDT POCT GLUCOSE METER UNSOLICITED RESULTS Routine 06/30/2025 7:40 AM EDT PERIPHERAL BLOOD SMEAR, PATHOLOGIST INTERPRETATION Routine 06/30/2025 12:37 AM EDT PERIPHERAL BLOOD SMEAR, PSMEAR Routine 06/30/2025 12:37 AM EDT COMPREHENSIVE METABOLIC PANEL, PLASMA Routine 06/30/2025 12:37 AM EDT PHOSPHORUS, PLASMA Routine 06/30/2025 12:37 AM EDT MAGNESIUM, PLASMA Routine 06/30/2025 12:37 AM EDT POCT GLUCOSE METER UNSOLICITED RESULTS Routine 06/29/2025 8:07 PM EDT POCT GLUCOSE METER UNSOLICITED RESULTS Routine 06/29/2025 4:40 PM EDT POCT GLUCOSE METER UNSOLICITED RESULTS Routine 06/29/2025 12:12 PM EDT POCT GLUCOSE METER UNSOLICITED RESULTS Routine 06/29/2025 8:05 AM EDT AMMONIA, PLASMA Routine 06/29/2025 12:18 AM EDT COMPREHENSIVE METABOLIC PANEL, PLASMA Routine 06/29/2025 12:18 AM EDT PHOSPHORUS, PLASMA Routine 06/29/2025 12:18 AM EDT MAGNESIUM, PLASMA Routine 06/29/2025 12:18 AM EDT CBC WITH AUTO DIFFERENTIAL Routine 06/29/2025 12:18 AM EDT POCT GLUCOSE METER UNSOLICITED RESULTS Routine 06/28/2025 10:35 PM EDT POCT GLUCOSE METER UNSOLICITED RESULTS Routine 06/28/2025 4:41 PM EDT POCT GLUCOSE METER UNSOLICITED RESULTS Routine 06/28/2025 12:08 PM EDT POCT GLUCOSE METER UNSOLICITED RESULTS Routine 06/28/2025 8:19 AM EDT PREALBUMIN, PLASMA Add-On 06/28/2025 3: 50 AM EDT COMPREHENSIVE METABOLIC PANEL, PLASMA Routine 06/28/2025 3:50 AM EDT PHOSPHORUS, PLASMA Routine 06/28/2025 3: 50 AM EDT MAGNESIUM, PLASMA Routine 06/28/2025 3:5 0 AM EDT CBC WITH AUTO DIFFERENTIAL Routine 06/28/2025 3:50 AM EDT POCT GLUCOSE [...] Routine 06/27/2025 10:27 AM EDT US GUIDED THORACENTESIS Routine 06/27/2025 10:03 AM EDT US GUIDED ABDOMINAL PARACENTESIS Routine 06/27/2025 10:03 AM EDT BODY FLUID, CYTOSPIN, PATHOLOGIST INTERPRETATION Routine 06/27/2025 9:16 AM EDT LACTATE DEHYDROGENASE, PERITONEAL FLUID Routine 06/27/2025 9:16 AM EDT ALBUMIN, PERITONEAL FLUID Routine 06/27/2025 9:16 AM EDT TOTAL PROTEIN, PERITONEAL FLUID Routine 06/27/2025 9:16 AM EDT GLUCOSE, PERITONEAL FLUID Routine 06/27/2025 9:16 AM EDT BODY FLUID CELL COUNT W/ MANUAL DIFFERENTIAL Routine 06/27/2025 9:16 AM EDT BODY FLUID CULTURE AND GRAM STAIN Routine 06/27/2025 9:16 AM EDT POCT GLUCOSE METER UNSOLICITED RESULTS Routine 06/27/2025 5:53 AM EDT MORPHOLOGY Routine 06/27/2025 4:03 AM EDT CYSTATIN C Add-On 06/27/2025 4:03 AM EDT COMPREHENSIVE METABOLIC PANEL, PLASMA Routine 06/27/2025 4:03 AM EDT PHOSPHORUS, PLASMA Routine 06/27/2025 4: 03 AM EDT MAGNESIUM, PLASMA Routine 06/27/2025 4:0 3 AM EDT CBC WITH AUTO DIFFERENTIAL Routine 06/27/2025 4:03 AM EDT POCT GLUCOSE METER UNSOLICITED RESULTS Routine 06/27/2025 12:02 AM EDT POCT GLUCOSE METER UNSOLICITED RESULTS Routine 06/26/2025 8:51 PM EDT POCT GLUCOSE METER UNSOLICITED RESULTS Routine 06/26/2025 4:56 PM EDT POCT GLUCOSE METER UNSOLICITED RESULTS Routine 06/26/2025 12:16 PM EDT CYSTATIN C Routine 06/26/2025 11:13 AM EDT PROTEIN, URINE, RANDOM WITH CREATININE Routine 06/26/2025 10:40 AM EDT UREA NITROGEN, RANDOM URINE Routine 06/26/2025 10:40 AM EDT POCT GLUCOSE METER UNSOLICITED RESULTS Routine 06/26/2025 9:00 AM EDT POCT GLUCOSE METER UNSOLICITED RESULTS Routine 06/26/2025 8:30 AM EDT OSMOLALITY, SERUM Routine 06/26/2025 3:4 7 AM EDT COMPREHENSIVE METABOLIC PANEL, PLASMA Routine 06/26/2025 3:47 AM EDT PHOSPHORUS, PLASMA Routine 06/26/2025 3: 47 AM EDT MAGNESIUM, PLASMA Routine 06/26/2025 3:4 7 AM EDT CBC WITH AUTO DIFFERENTIAL Routine 06/26/2025 3:47 AM EDT POCT GLUCOSE METER UNSOLICITED RESULTS Routine 06/25/2025 7:49 PM EDT POCT GLUCOSE METER UNSOLICITED RESULTS Routine 06/25/2025 6:18 PM EDT XR CHEST 1 VIEW STAT 06/25/2025 3:53 PM EDT MORPHOLOGY STAT 06/25/2025 3:00 PM EDT MANUAL DIFFERENTIAL STAT 06/25/2025 3 :00 PM EDT PHOSPHORUS, PLASMA STAT 06/25/2025 3: 00 PM EDT MAGNESIUM, PLASMA STAT 06/25/2025 3:0 0 PM EDT COMPREHENSIVE METABOLIC PANEL, PLASMA STAT 06/25/2025 3:00 PM EDT PROTHROMBIN TIME(PT) / INR STAT 06/25/2025 3:00 PM EDT CBC WITH AUTO DIFFERENTIAL STAT 06/25/2025 3:00 PM EDT ECG ADULT STAT 06/25/2025 2:48 PM EDT POCT GLUCOSE METER UNSOLICITED RESULTS Routine 06/25/2025 2:[address] MSK OUTSIDE IMAGES 06/23/2025 6:38 PM EDT XR OUTSIDE IMAGES 06/23/2025 5:5 6 PM EDT US OUTSIDE IMAGES 06/23/2025 5:2 9 PM EDT XR CHEST 1 VIEW STAT 06/20/2025 1:38 PM EDT US GUIDED ABDOMINAL PARACENTESIS Routine 06/20/2025 12:32 PM EDT Other ascites US GUIDED THORACENTESIS Routine 06/20/2025 12:32 PM EDT Other ascites BODY FLUID, [...] MANUAL DIFFERENTIAL Routine 05/02/2025 11:40 AM EDT COMPREHENSIVE ORAL EVALUATION - NEW [...] Recently Relevant to Health Maintenance Results * (ABNORMAL) POCT glucose meter (07/25/2025 2:23 PM EDT) Only the most recent of63 resultswithin the time period is included. POCT Glucose 137(H) 74 - 99 mg/dL [...] for testing. Comment 07/25/2025 2:24 PM EDT [facility] Sign Installer ID Kandice Silva 07/25/20 25 2:24 PM EDT [facility] Device ID [id number] 07/25/2025 2:24 PM EDT [facility] Specimen Type POC Capillary 07/25/2025 2:24 PM EDT [facility] Blood Capillary blood specimen / Unknown 07/25/2025 2:23 PM EDT 07/25/2025 2:24 PM EDT Kandice Silva [employer] CLERK [facility] [employer] TE ST DOCKED DEVICE UNSOLICITED RESULTS Final Result [facility] [address] [place] [id number] * XR Chest 1 View (07/25/2025 1:46 PM EDT) Only the most recent of14 resultswithin the time period is included. Anatomical Region Laterality Modality Chest Digital Radiogra phy Impressions 07/25/2025 2:18 PM EDT Interval decrease in lung volumes which may be due to differences in patient positioning. Otherwise unremarkable exam. CRITICAL RESULT: No. COMMUNICATION: Per this written report. By electronically signing this report, I the attending physician, attest that I have [...] Guided Abdominal Paracentesis (07/25/2025 12:55 PM EDT) Only the most recent of11 [...] Narrative 07/26/2025 8:51 AM EDT CLINICAL INDICATION: Monika Ordaz is a 64 y.o. 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 TECHNIQUE: Ophthalmic Medical Technologist: Fabiana Renee Secondary Sign Installer: Maria Dolores Ontiveros APRN. Rad Dose: NA [...] Sam Turcios MD - 07/26/2025 CLINICAL INDICATION: Monika Ordaz is a 64 y.o. 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 TECHNIQUE: Ophthalmic Medical Technologist: Fabiana Renee Secondary Sign Installer: Maria Dolores Ontiveros APRN. Rad Dose: NA [...] Sam Turcios MD on 07/26/2025 8:51 AM Marianna Gordon ADRI IMG US PROCEDURES Final Resu lt * US Guided Thoracentesis (07/25/2025 12:55 PM EDT) Only the most recent of11 [...] Narrative 07/26/2025 8:50 AM EDT CLINICAL INDICATION: Monika Ordaz is a 64 y.o. 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 TECHNIQUE: Ophthalmic Medical Technologist: Maria Dolores Ontiveros APRN Secondary Sign Installer: None. Rad Dose: NA Medications: Continuous physiologic [...] Sam Turcios MD - 07/26/2025 CLINICAL INDICATION: Monika Ordaz is a 64 y.o. 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 TECHNIQUE: Ophthalmic Medical Technologist: Maria Dolores Ontiveros APRN Secondary Sign Installer: Aparna. Rad Dose: NA Medications: Continuous physiologic [...] 07/26/2025 8:50 AM us Marianna N Cheeks IRRIGATOR VALVE PIPE IMG US PROCEDURES Final Resu lt * (ABNORMAL) Body Fluid Cell Count With Diff - Ascites (07/25/2025 11:52 AM EDT) Only the most recent of14 resultswithin the time period is included. Color, Body fluid [place] [facility] HEMATOLOGY METHOD 07/25/2025 4:56 PM EDT [...] 2:26 PM EDT us Marianna N Cheeks IRRIGATOR VALVE PIPE LAB BODY FLUIDS AND STOOLS ORDERABLES NO SPECIMEN TYPE/SOURCE Final Result [facility] [address] [place] [address] * Body fluid, cytospin, pathologist interpretation (07/25/2025 11:52 AM EDT) Only the most recent of14 resultswithin the time period is included. Specimen [...] EDT 07/25/2025 2:26 PM EDT Marianna N Cheeks IRRIGATOR [employer] PIPE LAB BODY FLUIDS AND STOOLS O RDERABLES Final Result Performing Organization Address [facility] [[email or web address]] Co de Phone Number [facility] [address] [place] [address] * Protein - Ascites (07/25/2025 11:52 AM EDT) Only the most recent of11 resultswithin the time period is included. Total Protein, Fluid 0.9 g/dL 07/25/2025 5:00 PM EDT [facility] Ascites Peritoneal cavity structure / Unknown 07/25/2025 11:52 AM EDT 07/25/2025 2:26 PM EDT Narrative [facility] - 07/25/2025 5:00 PM EDT This test was developed and its performance characteristics determined by [facility]. The U.S. Food and Drug Administration has not approved or cleared this test. However, FDA clearance or approval is not currently required for clinical use. The results are not intended to be used as the sole means for clinical diagnosis or patient management decisions. us Marianna N Cheeks IRRIGATOR VALVE PIPE LAB BODY FLUIDS AND STOOLS O RDERABLES Final Result Performing Organization Address [facility] [[email or web address]] Co de Phone Number [facility] [address] [place] [address] * Glucose - Ascites (07/18/2025 10:23 AM EDT) Only the most recent of5 resultswithin the time period is included. Glucose, Fluid 197 mg/dL 07/18/2025 1:43 PM EDT [facility] Peritoneal Fluid Peritoneal cavity structure / Unknown Non-blood Collection / Unknown 07/18/2025 10:23 AM EDT 07/18/2025 12:01 PM EDT Narrative [facility] - 07/18/2025 1:43 PM EDT [...] Glucose < 50 mg/dL. us Shaniqua Mccurdy IRRIGATOR VALVE PIPE LAB BODY FLUIDS AND STOOLS O RDERABLES Final Result [facility] [address] [place] [address] * US Abdomen Focused Region Other (07/11/2025 [...] Narrative 07/11/2025 4:21 PM EDT CLINICAL INDICATION: Monika Ordaz is a 64 y.o. 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 FINDINGS: Small volume RLQ ascites. No ascites present in LLQ, LUQ, RUQ. Paracentesis not completed COMPLICATION: No. Procedure Note Dina Rose MD - 07/11/2025 CLINICAL INDICATION: Monika Ordaz is a 64 y.o. 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 Prothrombin Time 23.5(H) 12.0 - 14.3 sec 07/09/2025 6:07 AM EDT [facility] [facility] INR 2.0(H) 0.9 - 1.1 07/09/2025 6:07 AM EDT [facility] Blood Venous blood specimen / Unknown Venipuncture / Unknown 07/09/2025 5:52 AM EDT 07/09/2025 5:54 AM EDT Narrative [facility] - 07/09/2025 6:07 AM EDT OPTIMAL INR RANGES FOR PATIENT ON ORAL ANTICOAGULANT THERAPY Prevention of venous thromboembolism INR 2.0 to 3.0 In patients with heart disease: Atrial fibrillation INR 2.0 to 3.0 Valvular heart disease INR 2.0 to 3.0 Tissue heart valves INR 2.0 to 3.0 Mechanical prosthetic valves INR 2.5 to 3.5 Prevention of recurrent [place] INR 2.5 to 3.5 us Fabiana Cunningham MD LAB BLOOD ORDERABLES Final Resu lt [facility] [address] [place] [address] * (ABNORMAL) CBC and Differential (07/09/2025 3:22 AM EDT) Only the most recent of18 resultswithin the time period is included. WBC Count 3.24(L) 3.70 - 10.30 10*3/uL LAB HEMATOLOGY METHOD 07/09/2025 3:42 AM EDT [facility] RBC Count 2.67(L) 3.90 - 5.20 10*6/uL LAB HEMATOLOGY METHOD 07/09/2025 3:42 AM EDT [facility] HGB 8.4(L) 11.2 - 15.7 g/dL LAB HEMATOLOGY METHOD 07/09/2025 3:42 AM EDT [facility] HCT 25.0(L) 34.0 - 45.0 % LAB HEMATOLOGY METHOD 07/09/2025 3:42 AM EDT [facility] Platelet Count 51(L) 155 - 369 10*3/uL LAB HEMATOLOGY METHOD 07/09/2025 3:42 AM EDT [facility] MCV 94 79 - 98 fL LAB HEMATOLOGY METHOD 07/09/2025 3:42 AM EDT [facility] MCH 31.5 26.0 - 32.0 pg LAB HEMATOLOGY METHOD 07/09/2025 3:42 AM EDT [facility] MCHC 33.6 30.7 - 35.5 g/dL LAB HEMATOLOGY METHOD 07/09/2025 3:42 AM EDT [facility] RDW 16.2(H) 11.5 - 14.5 % LAB HEMATOLOGY METHOD 07/09/2025 3:42 AM EDT [facility] MPV 11.8 8.8 - 12.5 fL LAB HEMATOLOGY METHOD 07/09/2025 3:42 AM EDT [facility] nRBC 0.0 <=0.0 per 100 WBCs LAB HEMATOLOGY METHOD 07/09/2025 3:42 AM EDT [facility] Differential Type Automated LAB HEMATOLOGY METHOD 07/09/2025 3:42 AM EDT [facility] Neutrophils % 57 % LAB HEMATOLOGY METHOD 07/09/2025 3:42 AM EDT [facility] Lymphocytes % 23 % LAB HEMATOLOGY METHOD 07/09/2025 3:42 AM EDT [facility] Monocytes % 16 % LAB HEMATOLOGY METHOD 07/09/2025 3:42 AM EDT [facility] Eosinophils % 3 % LAB HEMATOLOGY METHOD 07/09/2025 3:42 AM EDT [facility] Basophils % 1 % LAB HEMATOLOGY METHOD 07/09/2025 3:42 AM EDT [facility] Immature Granulocytes % 0 % LAB HEMATOLOGY METHOD 07/09/2025 3:42 AM EDT [facility] Neutrophils Absolute 1.84 1.60 - 6.10 10*3/uL LAB HEMATOLOGY METHOD 07/09/2025 3:42 AM EDT [facility] Lymphocytes Absolute 0.73(L) 1.20 - 3.90 10*3/uL LAB HEMATOLOGY METHOD 07/09/2025 3:42 AM EDT [facility] Monocytes Absolute 0.52 0.30 - 0.90 10*3/uL LAB HEMATOLOGY METHOD 07/09/2025 3:42 AM EDT [facility] Eosinophils Absolute 0.11 0.00 - 0.50 10*3/uL LAB HEMATOLOGY METHOD 07/09/2025 3:42 AM EDT [facility] Basophils Absolute 0.03 0.00 - 0.10 10*3/uL LAB HEMATOLOGY METHOD 07/09/2025 3:42 AM EDT [facility] Immature Granulocytes Absolute 0.01 0.00 - 0.06 10*3/uL LAB HEMATOLOGY METHOD 07/09/2025 3:42 AM EDT [facility] Blood Venous blood specimen / Unknown Venipuncture / Unknown 07/09/2025 3:22 AM EDT 07/09/2025 3:38 AM EDT [facility] - 07/09/2025 3:42 AM EDT Therapeutic decision making should be based on absolute values, rather than percentages. us Chilo Loyola MD LAB BLOOD ORDERABLES Final Result [facility] [address] [place] [id number] * Phosphorus, Plasma (07/09/2025 3:22 AM EDT) Only the most recent of16 resultswithin the time period is included. Phosphorus, Plasma 3.6 2.5 - 4.5 mg/dL 07/09/2025 4:00 AM EDT [facility] Blood Venous blood specimen / Unknown Venipuncture / Unknown 07/09/2025 3:22 AM EDT 07/09/2025 3:39 AM EDT us Chilo Loyola MD LAB BLOOD ORDERABLES Final Result Performing Organization Address [facility] [[email or web address]] Co de Phone Number [facility] [address] [place] [address] * Magnesium, Plasma (07/09/2025 3:22 AM EDT) Only the most recent of17 resultswithin the time period is included. Magnesium, Plasma 1.9 1.9 - 2.4 mg/dL 07/09/2025 4:00 AM EDT [facility] Blood Venous blood specimen / Unknown Venipuncture / Unknown 07/09/2025 3:22 AM EDT 07/09/2025 3:39 AM EDT us Chilo Loyola MD LAB BLOOD ORDERABLES Final Result Performing Organization Address City/[facility] [[email or web address]] Co de Phone Number [facility] [address] [place] [address] * (ABNORMAL) Comprehensive metabolic panel (07/09/2025 3:22 AM EDT) Only the most recent of20 resultswithin the time period is included. Glucose, Plasma 105(H) 74 - 99 mg/dL 07/09/2025 4:00 AM EDT [facility] BUN, Plasma 22 8 - 23 mg/dL 07/09/2025 4:00 AM EDT [facility] Creatinine, Plasma 1.22(H) 0.60 - 1.10 mg/dL 07/09/2025 4:00 AM EDT [facility] BUN/Creatinine Ratio 18 07/09/2025 4:00 AM EDT [facility] Sodium, Plasma 136 136 - 145 mmol/L 07/09/2025 4:00 AM EDT [facility] Potassium, Plasma 4.1 3.6 - 4.9 mmol/L 07/09/2025 4:00 AM EDT [facility] Chloride, Plasma 108(H) 97 - 107 mmol/L 07/09/2025 4:00 AM EDT [facility] CO2, Plasma 18(L) 22 - 29 mmol/L 07/09/2025 4:00 AM EDT [facility] Anion Gap 10 6 - 16 mmol/L 07/09/2025 4:00 AM EDT [facility] Total Calcium, Plasma 8.5(L) 8.9 - 10.2 mg/dL 07/09/2025 4:00 AM EDT [facility] Total Protein 6.2(L) 6.3 - 7.9 g/dL 07/09/2025 4:00 AM EDT [facility] Albumin, Plasma 3.5 3.5 - 5.2 g/dL 07/09/2025 4:00 AM EDT [facility] AST, Plasma 39(H) 10 - 35 U/L 07/09/2025 4:00 AM EDT [facility] ALT, Plasma 19 10 - 35 U/L 07/09/2025 4:00 AM EDT [facility] Alkaline Phosphatase, Plasma 170(H) 46 - 142 U/L 07/09/2025 4:00 AM EDT [facility] Total Bilirubin, Plasma 2.7(H) 0.2 - 1.1 mg/dL 07/09/2025 4:00 AM EDT [facility] eGFRcr 50.3 mL/min/1.7 3m*2 07/09/2025 4:00 AM EDT [facility] Comment:Reported eGFRcr in m L/min/1.73m2 is based the CKD-EPI 2020 equation that does not use a race coefficient. Blood Venous blood specimen / Unknown Venipuncture / Unknown 07/09/2025 3:22 AM EDT 07/09/2025 3:39 AM EDT us Chilo Loyola MD LAB BLOOD ORDERABLES Final Result [facility] [address] [place] [id number] * (ABNORMAL) Ammonia, Plasma (07/08/2025 4:21 AM EDT) Only the most recent of5 resultswithin the time period is included. Ammonia 146(H) 11 - 51 umol/L 07/08/2025 4:56 AM EDT [facility] Blood Venous blood specimen / Unknown Venipuncture / Unknown 07/08/2025 4:21 AM EDT 07/08/2025 4:27 AM EDT us Kayla Reed MD LAB BLOOD ORDERABLES Tari l Result Performing Organization Address [facility]/ZIP Co de Phone Number [facility] [address] [place] [address] * Total Protein, Pleural Fluid - Pleural Right (07/04/2025 10:48 AM EDT) Only the most recent of2 resultswithin the time period is included. Total Protein, Fluid 2.1 g/dL 07/04/2025 4:42 PM EDT [facility] Pleural Fluid Structure of right pleural cavity / Unknown Non-blood Collection / Unknown 07/04/2025 10:48 AM EDT 07/04/2025 12:11 PM EDT Narrative [facility] - 07/04/2025 4:42 PM EDT This test was developed and its performance characteristics determined by [facility]. The U.[place]. Food [...] VINCENT CATES Final Result Performing Organization Address City/[facility] [[email or web address]] Co de Phone Number [facility] [address] [place] [address] * Lactate Dehydrogenase, Pleural Fluid - Right (07/04/2025 10:48 AM EDT) Only the most recent of2 resultswithin the time period is included. LDH, Fluid 69 U/L 07/04/2025 4:42 PM EDT [facility] Pleural Fluid Structure of right pleural cavity / Unknown Non-blood Collection / Unknown 07/04/2025 10:48 AM EDT 07/04/2025 12:11 PM EDT Narrative [facility] - 07/04/2025 4:42 PM EDT [...] the following criteria are present: (1) pleural teufh-gk-fyegj protein ratio of >0.5, (2) pleural urvzv-ee-kjtvn LDH ratio of >0.6, or (3) a pleural fluid LDH activity that is >2/3 the upper limit of a normal serum LDH activity. Light's criteria may misclassify ~25% of transudates as exudates in heart failure. These can be identified by calculating a flgsl-fv-syiaibl albumin gradient (>1.2 g/dL) and/or a iiitx-ig-fpjeq protein gradient (>3.1 g/dL). Fabiana Cunningham MD LAB BODY FLUIDS AND STOOLS VINCENT CATES Final Result [facility] [address] [place] [address] * Body Fluid Culture and Gram Stain - Pleural Right (07/04/2025 10:48 AM EDT) Only the most recent of4 resultswithin the time period is included. Culture No growth at day 4 2024 7:42 AM EDT [facility] Gram Stain Result Few Polymorphonuclear leukocytes 07/07/2025 7:42 AM EDT [facility] Gram Stain Result No organisms seen 07/07/2025 7:42 AM EDT [facility] Pleural Fluid Specimen from pleura obtained by thoracentesis / Unknown Non-blood Collection / Unknown 07/04/2025 10:48 AM EDT 07/04/2025 12:41 PM EDT Fabiana Cunningham MD LAB MICROBIOLOGY - GENERAL ORDLoyd CATES Final Result Performing Organization Address [facility] [[email or web address]] Co de Phone Number [facility] [address] [place] [address] * LDH - Ascites (07/04/2025 10:08 AM EDT) Only the most recent of2 resultswithin the time period is included. LDH, Fluid 63 U/L 07/04/2025 3:52 PM EDT [facility] Ascites Peritoneal cavity structure / Unknown 07/04/2025 10:08 AM EDT 07/04/2025 12:10 PM EDT Narrative [facility] - 07/04/2025 3:52 PM EDT No [...] VINCENT CATES Final Result Performing Organization Address [facility] [[email or web address]] Co de Phone Number [facility] [address] [place] [address] * XR Abdomen 1 View (07/03/2025 7:02 [...] Per this written report. Drafted by Adri Maire MD on 07/03/2025 7:31 PM Final report signed by Adri Marie MD on 07/03/2025 7:32 PM us Fabiana Cunningham MD IMG XR PROCEDURES Final Result * Urea nitrogen, urine (07/02/2025 12:42 PM EDT) Only the most recent of2 resultswithin the time period is included. Urea Nitrogen, Urine 821 mg/dL 07/02/2025 4:26 PM EDT [facility] Urine Urine specimen obtained by clean catch procedure / Unknown Non-blood Collection / Unknown 07/02/2025 12:42 PM EDT 07/02/2025 1:01 PM EDT Fabiana Cunningham MD LAB URINE ORDERABLES Final Resu lt [facility] [address] [place] [address] * Sodium, urine, random (07/02/2025 12:42 PM EDT) Sodium, Urine <20 mmol/L 07/02/2025 1:41 PM EDT [facility] Urine Urine specimen obtained by clean catch procedure / Unknown Non-blood Collection / Unknown 07/02/2025 12:42 PM EDT 07/02/2025 1:01 PM EDT us Fabiana Cunningham MD LAB URINE ORDERABLES Final Resu lt Performing Organization Address [facility] [[email or web address]] Co de Phone Number [facility] [address] [place] [address] * Osmolality, urine (07/02/2025 12:42 PM EDT) Osmolality, Urine 467 50 - 1,200 mOsm/kg 07/02/2025 4:32 PM EDT [facility] Urine Urine specimen obtained by clean catch procedure / Unknown Non-blood Collection / Unknown 07/02/2025 12:42 PM EDT 07/02/2025 1:01 PM EDT us Fabiana Cunningham MD LAB URINE ORDERABLES Final Resu lt Performing Organization Address [facility] Co de Phone Number [facility] [address] [place] [address] * Creatinine, urine, random (07/02/2025 12:42 PM EDT) Creatinine, Urine 146 mg/dL 07/02/2025 1:41 PM EDT [facility] Urine Urine specimen obtained by clean catch procedure / Unknown Non-blood Collection / Unknown 07/02/2025 12:42 PM EDT 07/02/2025 1:01 PM EDT us Fabiana Cunningham MD LAB URINE ORDERABLES Final Resu lt Performing Organization Address [facility] [[email or web address]] Co de Phone Number [facility] [address] [place] [address] * (ABNORMAL) Peripheral Blood Smear (06/30/2025 12:37 AM EDT) WBC Count 2.74(L) 3.70 - 10.30 10*3/uL LAB HEMATOLOGY METHOD 06/30/2025 1:28 AM EDT [facility] RBC Count 2.74(L) 3.90 - 5.20 10*6/uL LAB HEMATOLOGY METHOD 06/30/2025 1:28 AM EDT [facility] HGB 8.4(L) 11.2 - 15.7 g/dL LAB HEMATOLOGY METHOD 06/30/2025 1:28 AM EDT [facility] HCT 24.8(L) 34.0 - 45.0 % LAB HEMATOLOGY METHOD 06/30/2025 1:28 AM EDT [facility] Platelet Count 40(L) 155 - 369 10*3/uL LAB HEMATOLOGY METHOD 06/30/2025 1:28 AM EDT [facility] MCV 91 79 - 98 fL LAB HEMATOLOGY METHOD 06/30/2025 1:28 AM EDT [facility] MCH 30.7 26.0 - 32.0 pg LAB HEMATOLOGY METHOD 06/30/2025 1:28 AM EDT [facility] MCHC 33.9 30.7 - 35.5 g/dL LAB HEMATOLOGY METHOD 06/30/2025 1:28 AM EDT [facility] RDW 15.3(H) 11.5 - 14.5 % LAB HEMATOLOGY METHOD 06/30/2025 1:28 AM EDT [facility] MPV 10.3 8.8 - 12.5 fL LAB HEMATOLOGY METHOD 06/30/2025 1:28 AM EDT [facility] nRBC 0.0 <=0.0 per 100 WBCs LAB HEMATOLOGY METHOD 06/30/2025 1:28 AM EDT [facility] Differential Type Automated LAB HEMATOLOGY METHOD 06/30/2025 1:28 AM EDT [facility] Neutrophils % 54 % LAB HEMATOLOGY METHOD 06/30/2025 1:28 AM EDT [facility] Lymphocytes % 27 % LAB HEMATOLOGY METHOD 06/30/2025 1:28 AM EDT [facility] Monocytes % 16 % LAB HEMATOLOGY METHOD 06/30/2025 1:28 AM EDT [facility] Eosinophils % 3 % LAB HEMATOLOGY METHOD 06/30/2025 1:28 AM EDT [facility] Basophils % 0 % LAB HEMATOLOGY METHOD 06/30/2025 1:28 AM EDT [facility] Immature Granulocytes % 0 % LAB HEMATOLOGY METHOD 06/30/2025 1:28 AM EDT [facility] Neutrophils Absolute 1.45(L) 1.60 - 6.10 10*3/uL LAB HEMATOLOGY METHOD 06/30/2025 1:28 AM EDT [facility] Lymphocytes Absolute 0.73(L) 1.20 - 3.90 10*3/uL LAB HEMATOLOGY METHOD 06/30/2025 1:28 AM EDT [facility] Monocytes Absolute 0.45 0.30 - 0.90 10*3/uL LAB HEMATOLOGY METHOD 06/30/2025 1:28 AM EDT [facility] Eosinophils Absolute 0.09 0.00 - 0.50 10*3/uL LAB HEMATOLOGY METHOD 06/30/2025 1:28 AM EDT [facility] Basophils Absolute 0.01 [...] LAB PATHOLOGY ORDERABLES Final Result [facility] [address] [place], [place] [id number] * Peripheral blood smear, pathologist interpretation (06/30/2025 12:37 AM EDT) Clinical Diagnosis, Peripheral Smear Pancytopenia LAB HEMATOLOGY METHOD 07/01/2025 12:12 PM EDT [facility] Interpretation , Peripheral Smear Pancytopenia, not morphologically distinct 07/01/2025 12:12 PM EDT [facility] Pathologist Signature, Peripheral Smear 07/01/2025 12:12 PM EDT [facility] Comment:Reviewed by: Stacy King MD LAB CP ASR DISCLAIMER No 07/01/2025 12:12 PM EDT [facility] Blood Venous blood specimen / Unknown Venipuncture / Unknown 06/30/2025 12:37 AM EDT 06/30/2025 12:40 AM EDT Fabiana Cunningham MD LAB PATHOLOGY ORDERABLES Final Result Performing Organization Address City/[facility] [[email or web address]] Co de Phone Number [facility] [address] [place] [address] * (ABNORMAL) Prealbumin (06/28/2025 3:50 AM EDT) Only the most recent of2 resultswithin the time period is included. Prealbumin, Plasma 5.0(L) 20.0 - 41.0 mg/dL 06/28/2025 1:42 PM EDT [facility] Blood Venous blood specimen / Unknown Venipuncture / Unknown 06/28/2025 3:50 AM EDT 06/28/2025 4:27 AM EDT Result [facility] Chilo Loyola MD LAB BLOOD ORDERABLES Final Result Performing Organization Address [facility] [[email or web address]] Co de Phone Number [facility] [address] [place] [address] * (ABNORMAL) APTT (06/27/2025 2:37 PM EDT) Only the most recent of2 resultswithin the time period is included. aPTT 42(H) 25 - 35 sec 06/27/2025 3:10 PM EDT [facility] Blood Venous blood specimen / Unknown Venipuncture / Unknown 06/27/2025 2:37 PM EDT 06/27/2025 2:44 PM EDT Chilo Loyola MD LAB BLOOD ORDERABLES Final Result Performing Organization Address City/[facility] [[email or web address]] Co de Phone Number [facility] [address] [place] [address] * (ABNORMAL) Basic metabolic panel (06/27/2025 2:37 PM EDT) Only the most recent of2 resultswithin the time period is included. Glucose, Plasma 90 74 - 99 mg/dL 06/27/2025 3:10 PM EDT [facility] BUN, Plasma 29(H) 8 - 23 mg/dL 06/27/2025 3:10 PM EDT [facility] Creatinine, Plasma 1.83(H) 0.60 - 1.10 mg/dL 06/27/2025 3:10 PM EDT [facility] BUN/Creatinine Ratio 16 06/27/2025 3:10 PM EDT [facility] Sodium, Plasma 139 136 - 145 mmol/L 06/27/2025 3:10 PM EDT [facility] Potassium, Plasma 3.7 3.6 - 4.9 mmol/L 06/27/2025 3:10 PM EDT [facility] Chloride, Plasma 108(H) 97 - 107 mmol/L 06/27/2025 3:10 PM EDT [facility] CO2, Plasma 19(L) 22 - 29 mmol/L 06/27/2025 3:10 PM EDT [facility] Anion Gap 12 6 - 16 mmol/L 06/27/2025 3:10 PM EDT [facility] Total Calcium, Plasma 8.6(L) 8.9 - 10.2 mg/dL 06/27/2025 3:10 PM EDT [facility] eGFRcr 30.9 mL/min/1.7 3m*2 06/27/2025 3:10 PM EDT [facility] Comment:Reported eGFRcr in m L/min/1.73m2 is based the CKD-EPI 2020 equation that does not use a race coefficient. Blood Venous blood specimen / Unknown Venipuncture / Unknown 06/27/2025 2:37 PM EDT 06/27/2025 2:44 PM EDT us Chilo Loyola MD LAB BLOOD ORDERABLES Final Result [facility] [address] [place] [id number] * Albumin - Ascites (06/27/2025 9:16 AM EDT) Only the most recent of3 resultswithin the time period is included. Albumin, Peritoneal Fluid 0.5 g/dL 06/27/2025 2:46 PM EDT [facility] Peritoneal Fluid Peritoneal cavity structure / Unknown Non-blood Collection / Unknown 06/27/2025 9:16 AM EDT 06/27/2025 11:21 AM EDT Narrative [facility] - 06/27/2025 2:46 PM EDT REPORTING RESULTS Reference Values: No established reference interval. Results should be interpreted in comparison to the concentration in blood and in conjunction with the clinical context. This test was developed and its performance characteristics determined by [facility]. The U.S. Food and Drug Administration has not approved or cleared this test; however, FDA clearance or approval is not currently required for clinical use. The results are not intended to be used as the sole means for clinical diagnosis or patient management decisions. Chilo Loyola MD LAB BODY FLUIDS AND STOOLS ORDERABLES Final Result Performing Organization Address City/[facility]/ZIP Co de Phone Number [facility] [address] [place] [address] * Morphology (06/27/2025 4:03 AM EDT) Only the most recent of2 resultswithin the time period is included. RBC Morphology Slide Reviewed LAB HEMATOLOGY METHOD 06/27/2025 5:26 AM EDT [facility] Target Cells Present LAB HEMATOLOGY METHOD 06/27/2025 5:26 AM EDT [facility] Blood Venous blood specimen / Unknown Venipuncture / Unknown 06/27/2025 4:03 AM EDT 06/27/2025 4:40 AM EDT Chilo Loyola MD LAB BLOOD ORDERABLES Final Result [facility] [address] [place] [address] * (ABNORMAL) Cystatin C (06/27/2025 4:03 AM EDT) Only the most recent of2 resultswithin the time period is included. Cystatin C 2.97(H) 0.61 - 0.95 mg/L 06/27/2025 11:21 AM EDT [facility] Blood Venous blood specimen / Unknown Venipuncture / Unknown 06/27/2025 4:03 AM EDT 06/27/2025 4:40 AM EDT us Chilo Loyola MD LAB BLOOD ORDERABLES Final Result Performing Organization Address [facility] [[email or web address]] Co de Phone Number [facility] [address] [place] [address] * Protein, Random, Urine with Creatinine (06/26/2025 10:40 AM EDT) Protein, Urine 56 mg/dL 06/26/2025 11:35 AM EDT [facility] Creatinine, Urine 181 mg/dL 06/26/2025 11:35 AM EDT [facility] Protein/Creati nine Ratio 0.3 mg/mg Creat 06/26/2025 11:35 AM EDT [facility] Urine Urine specimen obtained by clean catch procedure / Unknown Non-blood Collection / Unknown 06/26/2025 10:40 AM EDT 06/26/2025 11:03 AM EDT Chilo Loyola MD LAB URINE ORDERABLES Final Result Performing Organization Address [facility] de Phone Number [facility] [address] [place] [address] * (ABNORMAL) Osmolality (06/26/2025 3:47 AM EDT) Pathologist [facility] Osmolality, Serum 307(H) 280 - 301 mOsm/Kg 06/26/2025 9:36 AM EDT [facility] Blood Venous blood specimen / Unknown Venipuncture / Unknown 06/26/2025 3:47 AM EDT 06/26/2025 4:09 AM EDT us Chilo Loyola MD LAB BLOOD ORDERABLES Final Result Performing Organization Address City/[facility] [[email or web address]] Co de Phone Number [facility] [address] [place] [address] * (ABNORMAL) Manual Differential (06/25/2025 3:00 PM EDT) Blasts % 0 % LAB HEMATOLOGY METHOD 06/25/2025 4:38 PM EDT [facility] Promyelocytes % 0 % LAB HEMATOLOGY METHOD 06/25/2025 4:38 PM EDT [facility] Myelocytes % 0 % LAB HEMATOLOGY METHOD 06/25/2025 4:38 PM EDT [facility] Metamyelocytes % 0 % LAB HEMATOLOGY METHOD 06/25/2025 4:38 PM EDT [facility] Neutrophils % 69 % LAB HEMATOLOGY METHOD 06/25/2025 4:38 PM EDT [facility] Lymphocytes % 15 % LAB HEMATOLOGY METHOD 06/25/2025 4:38 PM EDT [facility] Reactive Lymphocytes % 0 % LAB HEMATOLOGY METHOD 06/25/2025 4:38 PM EDT [facility] Monocytes % 11 % LAB HEMATOLOGY METHOD 06/25/2025 4:38 PM EDT [facility] Eosinophils % 1 % LAB HEMATOLOGY METHOD 06/25/2025 4:38 PM EDT [facility] Basophils % 4 % LAB HEMATOLOGY METHOD 06/25/2025 4:38 PM EDT [facility] Blasts Absolute LAB HEMATOLOGY METHOD 06/25/2025 4:38 PM EDT [facility] Promyelocytes Absolute LAB HEMATOLOGY METHOD 06/25/2025 4:38 PM EDT [facility] Myelocytes Absolute LAB HEMATOLOGY METHOD 06/25/2025 4:38 PM EDT [facility] Metamyelocytes Absolute LAB HEMATOLOGY METHOD 06/25/2025 4:38 PM EDT [facility] Neutrophils Absolute 1.61 1.60 - 6.10 10*3/uL LAB HEMATOLOGY METHOD 06/25/2025 4:38 PM EDT [facility] Lymphocytes Absolute 0.35(L) 1.20 - 3.90 10*3/uL LAB HEMATOLOGY METHOD 06/25/2025 4:38 PM EDT [facility] Reactive Lymphocytes Absolute LAB HEMATOLOGY METHOD 06/25/2025 4:38 PM EDT [facility] Monocytes Absolute 0.26(L) 0.30 - 0.90 10*3/uL LAB HEMATOLOGY METHOD 06/25/2025 4:38 PM EDT [facility] Eosinophils Absolute 0.02 0.00 - 0.50 10*3/uL LAB HEMATOLOGY METHOD 06/25/2025 4:38 PM EDT [facility] Basophils Absolute 0.09 0.00 - 0.10 10*3/uL LAB HEMATOLOGY METHOD 06/25/2025 4:38 PM EDT [facility] Blood Venous blood specimen / Unknown Venipuncture / Unknown 06/25/2025 3:00 PM EDT 06/25/2025 3:10 PM EDT Raymundo Childers MD LAB BLOOD ORDERABLES Final Resul t [facility] [address] [place] [address] * ECG Adult (06/25/2025 2:48 PM EDT) Only the most recent of3 resultswithin the time period is included. EKG DIAGNOSIS CLASS Abnormal MUSE ECG Ventricular Rate 61 BPM MUSE ECG QRSD Interval 86 ms MUSE ECG QT Interval 448 ms MUSE ECG QTC Interval 450 ms MUSE ECG R [place] -25 degrees MUSE ECG T Wave [place] 25 degrees MUSE ECG Diagnosis Poor data [...] Final Result Performing Organization Address City/[facility] [[email or web address]] Co de Phone Number MUSE ECG * CT MSK OUTSIDE IMAGES (06/23/2025 6:38 PM EDT) Anatomical Region Laterality Modality Computed Tomogra phy 06/23/2025 6:38 PM EDT Kandice Maldonado APRN IMG CT PROCEDURES Final Res ult * XR OUTSIDE IMAGES (06/23/2025 5:56 PM EDT) Anatomical Region Laterality Modality Radiographic [place] ging 06/23/2025 5:56 PM EDT us Kandice Maldonado [employer] IMG XR PROCEDURES Final Res ult * US OUTSIDE IMAGES (06/23/2025 5:29 PM EDT) Anatomical Region Laterality Modality Ultrasound 06/23/2025 5:29 PM EDT us Kandice Maldonado APRN IMG US PROCEDURES Final Res ult * Bone Specific Alkaline Phosphatase (06/11/2025 9:24 AM EDT) Bone Specific Alkaline Phosphatase 31.6 ug/L 06/11/2025 10:45 AM EDT [facility] Comment: BSAP (Ostase) Reference Values, Female, age 18 years and up: Premenopausal: 4.5 to 16.9 ug/L Postmenopausal: 7.0 to 22.4 ug/L Blood Venous blood specimen / Unknown Venipuncture / Unknown 06/11/2025 9:24 AM EDT 06/11/2025 9:55 AM EDT us Ar Dominique MD LAB REF LAB BLOOD AND FLUID OR D Final Result [facility] [address] [place] [address] * Pain Management, Quantitative Urine Drug Testing (06/11/2025 9:24 AM EDT) Only the most recent of2 resultswithin the time period is included. Alpha [place] Alprazolam <20 <20 ng/mL 06/13 1:50 PM EDT [facility] Alpha [place] Midazolam <20 <20 ng/mL 2024 1:50 PM EDT [facility] Alpha [place] Triazolam <20 <20 ng/mL 2024 1:50 PM EDT [facility] Alprazolam <10 <10 ng/mL 06/13/2025 1:50 PM EDT [facility] Aminoclonazepam <20 <20 ng/mL 5 1:50 PM EDT [facility] Amphetamine <50 <50 ng/mL 06/13/2025 1:50 PM EDT [facility] Benzoylecgonine <50 <50 ng/mL 1:50 PM EDT [facility] Buprenorphine <10 <10 ng/mL 06/13/2025 1:50 PM EDT [facility] Buprenorphine Glucuronide <50 <50 ng/mL 06/13/2025 1:50 PM EDT [facility] Butalbital <50 <50 ng/mL 06/13/2025 1:50 PM EDT [facility] 9 Carboxy THC <10 <10 ng/mL 06/13/2025 1:50 PM EDT [facility] 9 Carboxy THC Glucuronide <25 <25 ng/mL 06/13/2025 1:50 PM EDT [facility] Clonazepam <10 <10 ng/mL 06/13/2025 1:50 PM EDT [facility] Codeine <50 <50 ng/mL 06/13/2025 1:50 PM EDT [facility] Codeine Glucuronide <50 <50 ng/mL 06/13 1:50 PM EDT [facility] Cyclobenzaprine <50 <50 ng/mL 1:50 PM EDT [facility] Desmethyl Tramadol <50 <50 ng/mL 2024 1:50 PM EDT [facility] Diazepam <10 <10 ng/mL 06/13/2025 1:50 PM EDT [facility] EDDP - Methadone Metabolite <50 <50 ng/mL 06/13/2025 1:50 PM EDT [facility] Fentanyl <1 <1 ng/mL 06/13/2025 1:50 PM EDT [facility] Hydrocodone <50 <50 ng/mL 06/13/2025 1:50 PM EDT [facility] Hydromorphone <50 <50 ng/mL 06/13/2025 1:50 PM EDT [facility] Hydromorphone Glucuronide <50 <50 ng/mL 06/13/2025 1:50 PM EDT [facility] Lorazepam <20 <20 ng/mL 06/13/2025 1:50 PM EDT [facility] Lorazepam Glucuronide <50 <50 ng/mL 06/13/2025 1:50 PM EDT [facility] MDA <50 <50 ng/mL 06/13/2025 1:50 PM EDT [facility] MDMA <50 <50 ng/mL 06/13/2025 1:50 PM EDT [facility] Meperidine <50 <50 ng/mL 06/13/2025 1:50 PM EDT [facility] Methadone <50 <50 ng/mL 06/13/2025 1:50 PM EDT [facility] Methamphetamine <50 <50 ng/mL 1:50 PM EDT [facility] Methylphenidate <50 <50 ng/mL 1:50 PM EDT [facility] 6 Monoacetyl morphine <10 <10 ng/mL 06/13/2025 1:50 PM EDT [facility] Morphine <50 <50 ng/mL 06/13/2025 1:50 PM EDT [facility] Morphine Glucuronide <50 <50 ng/mL 05/22 1:50 PM EDT [facility] Naloxone <50 <50 ng/mL 06/13/2025 1:50 PM EDT [facility] Naloxone Glucuronide <50 <50 ng/mL 05/22 1:50 PM EDT [facility] Norbuprenorphine <10 <10 ng/mL 06/13/20 1:50 PM EDT [facility] Norbuprenorphine Glucuronide <50 <50 ng/mL 06/13/2025 1:50 PM EDT [facility] Nordiazepam <20 <20 ng/mL 06/13/2025 1:50 PM EDT [facility] Norfentanyl <2 <2 ng/mL 06/13/2025 1:50 PM EDT [facility] Normeperidine <50 <50 ng/mL 06/13/2025 1:50 PM EDT [facility] PCP Quant, Ur <50 <50 ng/mL 06/13/2025 1:50 PM EDT [facility] Phenobarbital <50 <50 ng/mL 06/13/2025 1:50 PM EDT [facility] Oxazepam <20 <20 ng/mL 06/13/2025 1:50 PM EDT [facility] Oxazepam Glucuronide <50 <50 ng/mL 05/22 1:50 PM EDT [facility] Oxycodone <50 <50 ng/mL 06/13/2025 1:50 PM EDT [facility] Oxymorphone <50 <50 ng/mL 06/13/2025 1:50 PM EDT [facility] Oxymorphone Glucuronide <50 <50 ng/mL 06/13/2025 1:50 PM EDT [facility] Secobarbital <50 <50 ng/mL 06/13/2025 1:50 PM EDT [facility] Tramadol <50 <50 ng/mL 06/13/2025 1:50 PM EDT [facility] Temazepam <20 <20 ng/mL 06/13/2025 1:50 PM EDT [facility] Temazepam Glucuronide <50 <50 ng/mL 06/13/2025 1:50 PM EDT [facility] Urine Urine specimen obtained by clean catch procedure / Unknown Non-blood Collection / Unknown 06/11/2025 9:24 AM EDT 06/11/2025 9:57 AM EDT Narrative [facility] - 06/13/2025 1:50 PM EDT [...] laboratory. Test performed by LC-MS/MS at the [facility]. This test was developed and its performance characteristics determined by [facility]. It has not been cleared or approved by the FDA. The laboratory is regulated under CLIA as qualified to perform high-complexity testing. This test is used for clinical purposes. us Gerson Arora MD LAB URINE ORDERABLES Final Resul t [facility] [address] [place] [address] * C-Telopeptide (06/11/2025 9:24 AM EDT) C Telopeptide Beta Cross Linked Serum Result 1083 pg/mL 06/13/2025 1:13 [address] [facility] [employer]) Blood Venous blood specimen / Unknown Venipuncture / Unknown 06/11/2025 9:24 AM EDT 06/11/2025 9:54 AM EDT Narrative [facility] KELLY) - 06/13/2025 1:13 AM EDT Premenopausal Females: 136-689 pg/mL Postmenopausal Females: 177-1015 pg/mL REFERENCE INTERVAL: C-Telopeptide, Cjpx-Lccjz-Raadub, Serum Access complete set of age- and/or gender-specific reference intervals for this test in the [employer] Test Directory ([employer]). Performed By: [employer] [address] [place] [address] Retail Event Coordinator: Tank Orona MD, PhD CLIA Number: [id number] us Ar Dominique MD LAB BLOOD ORDERABLES Final Res ult [facility]) [address] [place] [address] * Nicotine Cotinine Metabolite (06/11/2025 9:24 AM EDT) Only the most recent of2 resultswithin the time period is included. NICOTINE <5 <5 ng/mL 06/13/2025 6:2 3 PM EDT [facility] Cotinine <5 <5 ng/mL 06/13/2025 6:2 3 PM EDT [facility] Blood Venous blood specimen / Unknown Venipuncture / Unknown 06/11/2025 9:24 AM EDT 06/11/2025 9:55 AM EDT Narrative [facility] - 06/13/2025 6:23 PM EDT Testing performed by LC-MS/MS at the [facility] Special Chemistry/Toxicology Laboratory. This test was developed and its performance characteristics determined by [facility]. This assay has not been cleared by the FDA. The laboratory is regulated under CLIA as qualified to perform high-complexity testing. This test is used for clinical purposes. us Gerson Arora MD LAB BLOOD ORDERABLES Final Resul t Performing Organization Address City/[facility]/ZIP Co de Phone Number [facility] [address] [place] [address] * Osteocalcin by ECIA (06/11/2025 9:24 AM EDT) OSTEOCALCIN BY ECIA 28 8 - 36 ng/mL 06/13/2025 1:13 AM EDT [facility] [email or web address] ([employer]) Blood Venous blood specimen / Unknown Venipuncture / Unknown 06/11/2025 9:24 AM EDT 06/11/2025 10:00 AM EDT Narrative [facility] [employer]) - 06/13/2025 1:13 AM EDT INTERPRETIVE INFORMATION: Osteocalcin by ECIA In patients with renal failure, the osteocalcin result may be directly elevated, due to impaired clearance, and/or indirectly elevated due to renal osteodystrophy. Access complete set of age- and/or gender-specific reference intervals for this test in the [employer] Laboratory Test Directory ([employer]). Performed By: [employer] [address] [place] [address] Retail Event Coordinator: Tank Orona MD, PhD CLIA Number: [id number] Ar Dominique MD LAB BLOOD ORDERABLES Final Res ult Performing Organization Address City/[facility] [[email or web address] Co de Phone Number [facility]) [address] [place] [address] * Alcohol Urine (06/11/2025 9:24 AM EDT) Only the most recent of2 resultswithin the time period is included. Alcohol Urine Negative Negative 06/11/2025 2:20 PM EDT [facility] Urine Urine specimen obtained by clean catch procedure / Unknown Non-blood Collection / Unknown 06/11/2025 9:24 AM EDT 06/11/2025 9:57 AM EDT Narrative [facility] - 06/11/2025 2:20 PM EDT The correlation between urine and serum ethanol concentration is highly variable. Test performed by Gas Chromatography at the [facility] Special Chemistry Laboratory. This test was developed and its performance characteristics determined by [facility]. It has not been cleared or approved by the FDA.The laboratory is regulated under CLIA as qualified to perform high-complexity testing. This test is used for clinical purposes only. Gerson Arora MD LAB URINE ORDERABLES Final Resul t [facility] [address] [place] [address] * (ABNORMAL) Comprehensive Urine Drug Screening, Qualitative Assay, >= 27 Drug Classes (:24 AM EDT) Only the most recent of2 resultswithin the time period is included. Acetaminophen Negative Negative 06/11/2025 4:37 PM EDT [facility] Alprazolam Negative Negative 06/11/2025 4:37 PM EDT [facility] Amantadine Negative Negative 06/11/2025 4:37 PM EDT [facility] Amitriptyline Negative Negative 06/11/2025 4:37 PM EDT [facility] Amphetamine Negative Negative 06/11/2025 4:37 PM EDT [facility] Atenolol Negative Negative 06/11/2025 4:37 PM EDT [facility] Benzoylecgonine Negative Negative 4:37 PM EDT [facility] Bisoprolol Negative Negative 06/11/2025 4:37 PM EDT [facility] Bupropion Negative Negative 06/11/2025 4:37 PM EDT [facility] Butalbital Negative Negative 06/11/2025 4:37 PM EDT [facility] Carbamazepine Negative Negative 06/11/2025 4:37 PM EDT [facility] Carisoprodol Negative Negative 06/11/2025 4:37 PM EDT [facility] Chlorpheniramine Negative Negative 06/11/20 4:37 PM EDT [facility] Citalopram Negative Negative 06/11/2025 4:37 PM EDT [facility] Clindamycin Negative Negative 06/11/2025 4:37 PM EDT [facility] Clonidine Negative Negative 06/11/2025 4:37 PM EDT [facility] Clopidogrel / Ticlopidine Negative Negative 06/11/2025 4:37 PM EDT [facility] Cocaethylene Negative Negative 06/11/2025 4:37 PM EDT [facility] Cocaine Negative Negative 06/11/2025 4:37 PM EDT [facility] Codeine Negative Negative 06/11/2025 4:37 PM EDT [facility] Cyclobenzaprine Negative Negative 4:37 PM EDT [facility] Desvenlafaxine Negative Negative 06/11/2025 4:37 PM EDT [facility] Dextromethorphan Negative Negative 06/11/20 4:37 PM EDT [facility] Diazepam Negative Negative 06/11/2025 4:37 PM EDT [facility] Diltiazem Negative Negative 06/11/2025 4:37 PM EDT [facility] Diphenhydramine Negative Negative 4:37 PM EDT [facility] Doxepine Negative Negative 06/11/2025 4:37 PM EDT [facility] Doxylamine Negative Negative 06/11/2025 4:37 PM EDT [facility] EDDP-Methadone metabolite Negative Negative 06/11/2025 4:37 PM EDT [facility] Fentanyl Negative Negative 06/11/2025 4:37 PM EDT [facility] Fluconazole Negative Negative 06/11/2025 4:37 PM EDT [facility] Fluoxetine Negative Negative 06/11/2025 4:37 PM EDT [facility] Guaifenesin Negative Negative 06/11/2025 4:37 PM EDT [facility] Haloperidol Negative Negative 06/11/2025 4:37 PM EDT [facility] Heroin/6-SANA Negative Negative 06/11/2025 4:37 PM EDT [facility] Hydrocodone Negative Negative 06/11/2025 4:37 PM EDT [facility] Hydroxyzine / Cetirizine metabolite Negative Negative 06/11/2025 4:37 PM EDT [facility] Ibuprofen Negative Negative 06/11/2025 4:37 PM EDT [facility] Imipramine Negative Negative 06/11/2025 4:37 PM EDT [facility] Ketamine Negative Negative 06/11/2025 4:37 PM EDT [facility] Labetolol Negative Negative 06/11/2025 4:37 PM EDT [facility] Lamotrigine Negative Negative 06/11/2025 4:37 PM EDT [facility] Levetiracetam Negative Negative 06/11/2025 4:37 PM EDT [facility] Lidocaine Positive(A) Negative 06/11/2025 4:37 PM EDT [facility] MDA Negative Negative 06/11/2025 4:37 PM EDT [facility] MDMA Negative Negative 06/11/2025 4:37 PM EDT [facility] Memantine Negative Negative 06/11/2025 4:37 PM EDT [facility] Meperidine Negative Negative 06/11/2025 4:37 PM EDT [facility] Meprobamate Negative Negative 06/11/2025 4:37 PM EDT [facility] Metaxalone Negative Negative 06/11/2025 4:37 PM EDT [facility] Methamphetamine Negative Negative 4:37 PM EDT [facility] Methocarbamol Negative Negative 06/11/2025 4:37 PM EDT [facility] Methylecgonine Negative Negative 06/11/2025 4:37 PM EDT [facility] Metoclopramide Negative Negative 06/11/2025 4:37 PM EDT [facility] Metoprolol Negative Negative 06/11/2025 4:37 PM EDT [facility] Metronidazole Negative Negative 06/11/2025 4:37 PM EDT [facility] Midazolam Negative Negative 06/11/2025 4:37 PM EDT [facility] Midazolam Metabolite Negative Negative 06/11/2025 4:37 PM EDT [facility] Mirtazapine Negative Negative 06/11/2025 4:37 PM EDT [facility] Misc Test Result Negative Negative 06/11/20 4:37 PM EDT [facility] Naproxen Negative Negative 06/11/2025 4:37 PM EDT [facility] Nefazodone Negative Negative 06/11/2025 4:37 PM EDT [facility] Norfentanyl Negative Negative 06/11/2025 4:37 PM EDT [facility] Nortriptyline Negative Negative 06/11/2025 4:37 PM EDT [facility] Ordanstron Negative Negative 06/11/2025 4:37 PM EDT [facility] Oxcarbazepine Negative Negative 06/11/2025 4:37 PM EDT [facility] Oxycodone Negative Negative 06/11/2025 4:37 PM EDT [facility] Paroxethine Negative Negative 06/11/2025 4:37 PM EDT [facility] Phenobarbital Negative Negative 06/11/2025 4:37 PM EDT [facility] Phentermine Negative Negative 06/11/2025 4:37 PM EDT [facility] Phenytoin Negative Negative 06/11/2025 4:37 PM EDT [facility] Primidone Negative Negative 06/11/2025 4:37 PM EDT [facility] Promethazine Negative Negative 06/11/2025 4:37 PM EDT [facility] Propofol Negative Negative 06/11/2025 4:37 PM EDT [facility] Propranolol Negative Negative 06/11/2025 4:37 PM EDT [facility] Quetiapine Negative Negative 06/11/2025 4:37 PM EDT [facility] Quinine Negative Negative 06/11/2025 4:37 PM EDT [facility] Rantidine Negative Negative 06/11/2025 4:37 PM EDT [facility] Sertraline Negative Negative 06/11/2025 4:37 PM EDT [facility] Spironolactone Negative Negative 06/11/2025 4:37 PM EDT [facility] Tizanidine Negative Negative 06/11/2025 4:37 PM EDT [facility] Topiramate Negative Negative 06/11/2025 4:37 PM EDT [facility] Tramadol Negative Negative 06/11/2025 4:37 PM EDT [facility] Trazadone/ Trazadone metabolite Negative Negative 06/11/2025 4:37 PM EDT [facility] Trimethoprim Negative Negative 06/11/2025 4:37 PM EDT [facility] Valproic Acid Negative Negative 06/11/2025 4:37 PM EDT [facility] Venlafaxine Negative Negative 06/11/2025 4:37 PM EDT [facility] Verapamil Negative Negative 06/11/2025 4:37 PM EDT [facility] Zolpidem Negative Negative 06/11/2025 4:37 PM EDT [facility] Xylazine Negative Negative 06/11/2025 4:37 PM EDT [facility] Urine Urine specimen obtained by clean catch procedure / Unknown Non-blood Collection / Unknown 06/11/2025 9:24 AM EDT 06/11/2025 9:56 AM EDT us Gerson Arora MD LAB URINE ORDERABLES Final Resul t [facility] [address] [place] [address] * (ABNORMAL) CBC w/o differential (06/11/2025 9:24 AM EDT) Only the most recent of3 resultswithin the time period is included. WBC Count 4.49 3.70 - 10.30 10*3/uL LAB HEMATOLOGY METHOD 06/11/2025 10:12 AM EDT [facility] RBC Count 3.17(L) 3.90 - 5.20 10*6/uL LAB HEMATOLOGY METHOD 06/11/2025 10:12 AM EDT [facility] HGB 10.0(L) 11.2 - 15.7 g/dL LAB HEMATOLOGY METHOD 06/11/2025 10:12 AM EDT [facility] HCT 31.0(L) 34.0 - 45.0 % LAB HEMATOLOGY METHOD 06/11/2025 10:12 AM EDT [facility] Platelet Count 68(L) 155 - 369 10*3/uL LAB HEMATOLOGY METHOD 06/11/2025 10:12 AM EDT [facility] MCV 98 79 - 98 fL LAB HEMATOLOGY METHOD 06/11/2025 10:12 AM EDT [facility] MCH 31.5 26.0 - 32.0 pg LAB HEMATOLOGY METHOD 06/11/2025 10:12 AM EDT [facility] MCHC 32.3 30.7 - 35.5 g/dL LAB HEMATOLOGY METHOD 06/11/2025 10:12 AM EDT [facility] RDW 17.3(H) 11.5 - 14.5 % LAB HEMATOLOGY METHOD 06/11/2025 10:12 AM EDT [facility] MPV 10.1 8.8 - 12.5 fL LAB HEMATOLOGY METHOD 06/11/2025 10:12 AM EDT [facility] nRBC 0.0 <=0.0 per 100 WBCs LAB HEMATOLOGY METHOD 06/11/2025 10:12 AM EDT [facility] Blood Venous blood specimen / Unknown Venipuncture / Unknown 06/11/2025 9:24 AM EDT 06/11/2025 9:56 AM EDT us Gerson Arora MD LAB BLOOD ORDERABLES Final Resul t Performing Organization Address City/[facility]/ZIP Co de Phone Number [facility] [address] [place] [address] * (ABNORMAL) Iron, Plasma (06/05/2025 3:52 PM EDT) Iron, Plasma 165(H) 30 - 160 ug/dL 06/05/2025 6:41 PM EDT [facility] Blood Venous blood specimen / Unknown Venipuncture / Unknown 06/05/2025 3:52 PM EDT 06/05/2025 3:52 PM EDT us Alvarez Ordaz MD LAB BLOOD ORDERABLES Final Res ult Performing Organization Address City/[facility]/ZIP Co de Phone Number [facility] [address] [place] [address] * (ABNORMAL) Ferritin, Serum (06/05/2025 3:52 PM EDT) Ferritin, Serum 280(H) 13 - 150 ng/mL 06/05/2025 6:53 PM EDT [facility] Blood Venous blood specimen / Unknown Venipuncture / Unknown 06/05/2025 3:52 PM EDT 06/05/2025 3:52 PM EDT us Alvarez Ordaz MD LAB BLOOD ORDERABLES Final Res ult Performing Organization Address [facility]/ZIP Co de Phone Number [facility] [address] [place] [address] * (ABNORMAL) Conjugated Bilirubin, Plasma (06/05/2025 3:52 PM EDT) [facility] Conjugated Bilirubin, Plasma 1.5(H) <=0.3 mg/dL 06/05/2025 6:41 PM EDT [facility] Blood Venous blood specimen / Unknown Venipuncture / Unknown 06/05/2025 3:52 PM EDT 06/05/2025 3:52 PM EDT Alvarez Ordaz MD LAB BLOOD ORDERABLES Final Res ult Performing Organization Address [facility] [place] [address] * Urine Subramanian Panel (05/31/2025 6:43 PM EDT) Only the most recent of3 resultswithin the time period is included. [facility] Extra Reflex urine culture not indicated 05/31/2025 9:01 PM EDT [facility] Urine Urine specimen obtained by clean catch procedure / Unknown Non-blood Collection / Unknown 05/31/2025 6:43 PM EDT 05/31/2025 7:14 PM EDT us Irina Campos MD LAB URINE ORDERABLES Final Re sult Performing Organization Address [facility] [[email or web address]] [place] [address] * Urinalysis Microscopic Examination (05/31/2025 6:43 PM EDT) Only the most recent of3 resultswithin the time period is included. Urine Urine specimen obtained by clean catch procedure / Unknown Non-blood Collection / Unknown 05/31/2025 6:43 PM EDT 05/31/2025 6:46 PM EDT us Irina Campos MD LAB URINE ORDERABLES Final Re sult [facility] [address] [place] [address] * (ABNORMAL) Urinalysis with reflex microscopic (Culture NOT Included) (05/31/2025 6:43 PM EDT) Only the most recent of3 resultswithin the time period is included. Color, Urine Dark Yellow LAB URINALYSIS - AUTOMATED METHOD 05/31/2025 7:27 PM EDT [facility] Clarity, Urine Clear LAB URINALYSIS - AUTOMATED METHOD 05/31/2025 7:27 PM EDT [facility] Spec Galva, Urine 1.029 1.005 - 1.030 LAB URINALYSIS - AUTOMATED METHOD 05/31/2025 7:27 PM EDT [facility] pH, Urine <=5.0(L) 5.0 - 8.0 LAB URINALYSIS - AUTOMATED METHOD 05/31/2025 7:27 PM EDT [facility] Protein, Urine Trace(A) Negative mg/dL LAB URINALYSIS - AUTOMATED METHOD 05/31/2025 7:27 PM EDT [facility] Glucose, Urine Negative Negative mg/dL LAB URINALYSIS - AUTOMATED METHOD 05/31/2025 7:27 PM EDT [facility] Ketones, Urine Trace(A) Negative mg/dL LAB URINALYSIS - AUTOMATED METHOD 05/31/2025 7:27 PM EDT [facility] Blood, Urine Small(A) Negative LAB URINALYSIS - AUTOMATED METHOD 05/31/2025 7:27 PM EDT [facility] Bilirubin, Urine Small(A) Negative LAB URINALYSIS - AUTOMATED METHOD 05/31/2025 7:27 PM EDT [facility] Urobilinogen, Urine 1.0 0.2 to 1.0 mg/dL LAB URINALYSIS - AUTOMATED METHOD 05/31/2025 7:27 PM EDT [facility] Leukocytes, Urine Trace(A) Negative LAB URINALYSIS - AUTOMATED METHOD 05/31/2025 7:27 PM EDT [facility] Nitrite, Urine Negative Negative LAB URINALYSIS - AUTOMATED METHOD 05/31/2025 7:27 PM EDT [facility] RBC, Urine 4 - 10(A) 0 to 3 /HPF LAB URINALYSIS - AUTOMATED METHOD 05/31/2025 7:27 PM EDT [facility] Comment:This result was prev iously suppressed from the chart. WBC, Urine 0 - 5 0 to 5 /HPF LAB URINALYSIS - AUTOMATED METHOD 05/31/2025 7:27 PM EDT [facility] Comment:This result was prev iously suppressed from the chart. Squamous Epithelial Cells 3 - 5 0 to 5 /HPF LAB URINALYSIS - AUTOMATED METHOD 05/31/2025 7:27 PM EDT [facility] Comment:This result was prev iously suppressed from the chart. Hyaline Casts 3 - 5 0 to 5 /LPF LAB URINALYSIS - AUTOMATED METHOD 05/31/2025 7:27 PM EDT [facility] Comment:This result was prev iously suppressed from the chart. Bacteria, Urine Negative Negative LAB URINALYSIS - AUTOMATED METHOD 05/31/2025 7:27 PM EDT [facility] Comment:This result was prev iously suppressed from the chart. Urine Urine specimen obtained by clean catch procedure / Unknown Non-blood Collection / Unknown 05/31/2025 6:43 PM EDT 05/31/2025 6:46 PM EDT us Irina Campos MD LAB URINE ORDERABLES Final Re sult [facility] [address] [place] [address] * Lipase (05/31/2025 4:01 PM EDT) Lipase, Plasma 62 19 - 63 U/L 05/31/2025 4:26 PM EDT [facility] Blood Venous blood specimen / Unknown Venipuncture / Unknown 05/31/2025 4:01 PM EDT 05/31/2025 4:06 PM EDT us Torrie Turner MD LAB BLOOD ORDERABLES Final Resu lt [facility] [address] [place] [address] * (ABNORMAL) Blood gas panel, venous (05/31/2025 4:01 PM EDT) Only the most recent of2 resultswithin the time period is included. pH, Venous 7.41 7.32 - 7.43 LAB HEMATOLOGY METHOD 05/31/2025 4:07 PM EDT [facility] pCO2, Venous 35(L) 37 - 52 mmHg LAB HEMATOLOGY METHOD 05/31/2025 4:07 PM EDT [facility] pO2, Venous 28 25 - 40 mmHg LAB HEMATOLOGY METHOD 05/31/2025 4:07 PM EDT [facility] SO2, Measured, Venous 45(L) 65 - 80 % LAB HEMATOLOGY METHOD 05/31/2025 4:07 PM EDT [facility] Base Excess, Venous -2.0 -2.0 - 3.0 mmol/L LAB HEMATOLOGY METHOD 05/31/2025 4:07 PM EDT [facility] Bicarbonate, Calculated, Venous 22 22 - 26 mmol/L LAB HEMATOLOGY METHOD 05/31/2025 4:07 PM EDT [facility] Hematocrit, Whole Blood 27.5(L) 34.0 - 45.0 % LAB HEMATOLOGY METHOD 05/31/2025 4:07 PM EDT [facility] Sodium, Whole Blood 142 136 - 145 mmol/L LAB HEMATOLOGY METHOD 05/31/2025 4:07 PM EDT [facility] Potassium, Whole Blood 4.2 3.6 - 4.9 mmol/L LAB HEMATOLOGY METHOD 05/31/2025 4:07 PM EDT [facility] Chloride, Whole Blood 110(H) 97 - 107 mmol/L LAB HEMATOLOGY METHOD 05/31/2025 4:07 PM EDT [facility] Glucose, Whole Blood 183(H) 74 - 99 mg/dL LAB HEMATOLOGY METHOD 05/31/2025 4:07 PM EDT [facility] Lactate, Venous, Whole Blood 1.8 0.5 - 2.2 mmol/L LAB HEMATOLOGY METHOD 05/31/2025 4:07 PM EDT [facility] Ionized Calcium, Whole Blood 4.4(L) 4.6 - 5.1 mg/dL LAB HEMATOLOGY METHOD 05/31/2025 4:07 PM EDT [facility] Blood Venous blood specimen / Unknown Venipuncture / Unknown 05/31/2025 4:01 PM EDT 05/31/2025 4:06 PM EDT us Torrie Turner MD LAB BLOOD ORDERABLES Final Resu lt [facility] [address] [place] [address] * US Chest (05/30/2025 11:15 AM EDT) Only the most recent of2 resultswithin the time period is included. Anatomical [...] 05/30/2025 7:47 PM EDT CLINICAL INDICATION: Monika Ordaz is [...] Palacios MD - 05/30/2025 CLINICAL INDICATION: Monika Ordaz is a 64 [...] on 05/30/2025 7:47 PM us Marianna Gordon [employer]ATOR [employer] P[employer] IMG US PROCEDURES Final Resu lt * (ABNORMAL) Insulin, random (05/30/2025 9:59 AM EDT) Insulin 32.7(H) 3.0 - 16.0 uU/mL 05/30/2025 12:00 PM EDT [facility] Blood Venous blood specimen / Unknown Venipuncture / Unknown 05/30/2025 9:59 AM EDT 05/30/2025 10:16 AM EDT us Enmanuel Wetzel MD LAB BLOOD ORDERABLES Final Resu lt [facility] [address] [place] [address] * (ABNORMAL) Hemoglobin A1c (05/23/2025 9:27 AM EDT) Hemoglobin A1c 7.3(H) <5.7 % 05/23/2025 11:03 AM EDT [facility] Blood Venous blood specimen / Unknown Venipuncture / Unknown 05/23/2025 9:27 AM EDT 05/23/2025 9:45 AM EDT Narrative [facility] - 05/23/2025 11:03 AM EDT HA1C Interpretive Data: Diagnosis of Diabetes: Diabetic > or = 6.5% Pre-diabetic 5.7 to 6.4% Non-diabetic < or = 5.6% Glycemic Targets for Type I and Type II Diabetics: Non- Adults <7.0% Adults <6.0% Children and Adolescents <7.5% Source: [place] [employer]. Standards of medical care in diabetes,2017. Diabetes Care.2017:40 (suppl 1):S1-S135. us Enmanuel Wetzel MD LAB BLOOD ORDERABLES Final Resu lt [facility] [address] [place] [address] * CT Abdomen Pelvis w IV Contrast [...] are consistent with and integrated into the [place] Association for the Study of Liver Diseases [...] are consistent with and integrated into the [place] Associationfor the Study of Liver Diseases (AASLD) [...] signing this report, I, the attending physician, joseat I have personally reviewed the images/data for the aboveexamination(s) and agree with the final edited report. Drafted by Patricia Samaniego DO on 05/07/2025 1:47 PM Final report signed by Salina Carpenter MD on 05/07/2025 8:14 PM Gerson Arora MD IM CT PROCEDURES Final Result * Alpha Fetoprotein, Serum (05/07/2025 8:58 AM EDT) Alpha Fetoprotein, Serum 4.0 <10.0 ng/mL 05/07/2025 10:04 AM EDT [facility] Blood Venous blood specimen / Unknown Venipuncture / Unknown 05/07/2025 8:58 AM EDT 05/07/2025 9:20 AM EDT Narrative [facility] - 05/07/2025 10:04 AM EDT Performed by [employer] electrochemiluminescent immunoassay which is traceable to the [facility] WHO Reference standard 72/255. Results obtained with different test methods or kits cannot be used interchangeably. Gerson Arora MD LAB BLOOD ORDERABLES Final Resul t Performing Organization Address City/[facility]/ZIP Co de Phone Number [facility] [address] [place] [address] * (ABNORMAL) Troponin T, High Sensitivity, 2 Hour, Plasma (05/03/2025 4:23 PM EDT) Troponin T, High Sensitivity, 2 Hour 31(H) <14 ng/L 05/03/2025 4:47 PM EDT [facility] Troponin Delta 1 <10 ng/L 05/03/2025 4:47 PM EDT [facility] Troponin Delta Interpretation Not Significant 05/03/2025 4:47 PM EDT [facility] Comment:Not Significant. No acute change in troponin observed between the baseline and 2 hour samples. Blood Venous blood specimen / Unknown Venipuncture / Unknown 05/03/2025 4:23 PM EDT 05/03/2025 4:25 PM EDT Result [facility] Luis Alfredo Jon MD LAB BLOOD ORDERABLES Fi nal Result Performing Organization Address [facility] [[email or web address]] Co de Phone Number [facility] [address] [place] [address] * (ABNORMAL) Troponin now and 120 min (05/03/2025 1:50 PM EDT) Troponin T, High Sensitivity, 0 Hour 30(H) <14 ng/L 05/03/2025 2:20 PM EDT [facility] Blood Venous blood specimen / Unknown Venipuncture / Unknown 05/03/2025 1:50 PM EDT 05/03/2025 1:57 PM EDT Luis Alfredo Jon MD LAB BLOOD ORDERABLES Fi nal Result [facility] [place] [address] * Dexa Bone Density (11/07/2024 9:09 AM [...] forearm, right forearm was performed using a [employer] Horizon A Dual-energy X-ray Absorptiometry (DXA) scanner (software [...] left forearm, right forearm wasperformed using a [employer] Horizon A Dual-energy X-ray Absorptiometry (DXA)scanner (software [...] on 11/07/2024 9:34 AM Gerson Arora MD IMG DXA PROCEDURES Final Result * HIV 1 & 2 Antibody/Antigen Screen (10/22/2024 11:44 AM EST) Pathologist [facility] HIV 1 & 2 Antibody/Antigen Screen Non Reactive Non Reactive 10/22/2024 1:15 PM EST [facility] Comment:Screening for HIV 1 & 2 antibodies, and P24 antigen is NONREACTIVE. No confirmatory testing is required. Blood Venous blood specimen / Unknown Venipuncture / Unknown 10/22/2024 11:44 AM EST 10/22/2024 12:30 PM EST us Yeni Lebron APRN, DNP LAB BLOOD ORDERABLES Final Result [facility] [address] [place] [address] * Hepatitis C Antibody (10/22/2024 11:44 AM EST) Hepatitis C Antibody Negative Negative 10/22/2024 1:00 PM EST [facility] Blood Venous blood specimen / Unknown Venipuncture / Unknown 10/22/2024 11:44 AM EST 10/22/2024 12:17 PM EST Yeni Lebron APRN, DNP LAB BLOOD ORDERABLES Final Result [facility] [address] [place] [address] * Colonoscopy External Result (01/14/2023) Anatomical Region Laterality Modality Endoscopy Narrative 01/14/2023 Ordered by an unspecified provider. us External Provider GI PROCEDURE ORDERABLES Final Result * Cytology (04/12/2003 12:00 AM EDT) 04/12/2003 04/16/2003 Narrative [facility] - 04/26/2003 7:51 AM EDT [facility] MR #: [id number] [facility] [address] [place] [id number] 1960 (Age: 42) FW Collect Date: 04/12/2003 00:00 Receipt Date: 04/16/2003 00:00 Page 1 DEPARTMENT OF PATHOLOGY AND LABORATORY MEDICINE CYTOPATHOLOGY REPORT Email: [email or web address] [phone] ATTENDING MD/Practitioner: Rosaline Cooper MD Service: [facility] Location: OUTS Reported: 04/26/2003 07:51 Collected: 04/12/2003 [...] results is suggested (please call Microbiology at [phone] for results). CLINICAL INFORMATION: Menstrual History: Cyclic Date of Last Menstrual Period: 11/23 Contraceptive History: control pills Other Clinical Conditions: Per computer, patient has a history of previous abnormal pap SPECIMEN DESCRIPTION: A: THIN PREP (CERVICAL/VAGINAL) THIN PREP PROCESS CELLULAR ENHANCEMENT ICD: 795.00 ABNORMAL GLANDULAR PAPANICOLAOU SMEAR OF CERVIX F: A; THIN SCRN [id number], THIN SCRN [id number] <CR>, [place] [id number] SNOMED CODES: A; [id number] In cases where a pathologist has signed out the report, the service has been rendered in part by a resident. The signing pathologist has performed and is responsible for the reported pathologic evaluation. us Historical Provider LAB PATHOLOGY ORDERABLES Fin al Result [facility] from Last 3 Months or Most Recently Relevant to Health Maintenance Insurance [place] Member Subscriber Plan / Payer (Ef fective 2024-Present) Name:Monika Ordaz Relation to Subscriber:Self Name:Monika Ordaz Payer ID:Not on file Group ID:Not on file Type:Medicaid Address: [place] [id number] [place] MEDIC[place] Member Subscriber Plan / Payer (Ef fective 2024-Present) Name:Monika Ordaz Relation to Subscriber:Self Name:Monika Oradz Payer ID:Not on file Group ID:Not on file Type:Medicaid Address: [facility] [address] [place] [address] [place] Advance Directives Documents on File Type Date Recorded Patient Operational Meteorologist Expl anation Advance Directives and Livin g Will 07/10/2025 1:22 PM Advance Directives and Livin g Will 07/08/2025 2:22 PM * DNR - Ok to intubate (Latest Code Status on File) Date Activated Date Inactivated Comments 07/08/2025 2:16 PM 07/09/2025 3:24 PM Question Answer Comments DNR determined on/before admission date? No I have reviewed the capacity from the link above and, if needed, have updated to appropriate status: Yes * Full Code Date Activated Date Inactivated Comments 06/25/2025 7:36 PM 07/08/2025 2:16 PM Question Answer Comments I have reviewed the capacity from the link above and, if needed, have updated to appropriate status: Yes * Full Code Date Activated Date Inactivated Comments 01/08/2025 1:35 PM 01/14/2025 5:43 PM Question Answer Comments Patient has decision-making capacity? No Healthcare Surrogate: Parent(s) of the patient * Full Code Date Activated Date Inactivated Comments 10/22/2024 9:16 AM 11/03/2024 2:22 PM Question Answer Comments Patient has decision-making capacity? Yes Healthcare Agents on File Name Relationship Healthcare Agent Relationshi p Communication Irvin Ordaz Son Health Care Agent Lj Bernal Sister First Alternate Health Care Agent Karime Singletary Mother Second Alternate Health Care Agent Care Teams Plodder Operator Relationship Specialty Start Date End Date Alvarez Ordaz MD [address] [place] [address] PCP - General Family Medicine 12/07/24 Lea Fernando [address] [place] [address] Pattern Vault Clerk Endocrinology 08/29/24 Rachel Ray, [employer]ATOR [employer] [address] [place] [address] Nurse Practitioner Gastroenterology 09/24/24 Tamera Isabel LPN VALUE-BASED TRANSFORMATION PROGRAM Licensed Practical Nurse 05/29/25 Monique Tapia LPN [employer] [place] [address] TCM Nurse 07/10/25
--- OUTSIDE RECORDS SUMMARY | 2025-07-31 17:31 | XMS_ITS | Encounter Summary ---
Author Organization [facility] Address [address] [place] [address] Care Team Providers Care Garbage Truck Dispatcher Name Role Phone Lea Fernando Unavailable [phone] Rachel Ray CABIN CREW Unavailable [phone] Alvarez Zimmer MD Primary Care Provider [phone] Tamera Isabel LPN Unavailable Unavailabl e Encounter [...] more drinks on one occasion? Never 06/05/2025 [facility] of Occupat ional Health [...] drink first t kennedy in the morning (EYE-FLIPPING MACHINE OPERATOR) to steady your nerves or to get rid of a hangover? 0 10/22/2024 CAGE Questionnaire Score 0 024 Utilities Answer Date Recorded In the past 12 months has th [employer], gas, oil, or water company threatened [...] Appointment [facility] Interventional Radiology [address] [place] [address] 08/01/2025 11:00 AM EDT Appointment [facility] Interventional Radiology [address] [place] [address] 08/08/2025 11:15 AM EDT Appointment [facility] Interventional Radiology [address] [place] [address] 08/08/2025 12:15 PM EDT Appointment [facility] Inter[facility] Radiology [address] [place] [address] 2025 10:00 AM EDT Appointment [facility] Interventional Radiology [address] [place] [address] 2025 11:00 AM EDT Appointment [facility] Interventional Radiology [address] [place] [address] 08/20/2025 9:30 AM EDT Clinical Support [facility] [place] [address] [facility] [address] [place] [address] 08/20/2025 10:30 AM EDT Social Work [facility] [address] [facility] [place] [address] Deysi Ortega [place], [place] [address] 08/20/2025 11:00 AM EDT Office Visit [facility] [address] [address] Jude Duque MD [address] [facility] [address] [place] [address] documented as of this encounter [...] documented as of this encounter Care Teams Garbage Truck Dispatcher Relationship Specialty Start Date End Date Alvarez Zimmer MD [address] [place] [phone] PCP - General Family Medicine 12/07/24 Lea Fernando 2[address] [facility] [address] [place] [address] Compliance Mgr Endocrinology 08/29/24 Rachel Ray, CABIN CREW [address] [facility] [address] [place] [address] Nurse Practitioner Gastroenterology 09/24/24 Tamera Isabel LPN VALUE-BASED TRANSFORMATION PROGRAM Licensed Practical Nurse 05/29/25 documented as of this encounter
--- OUTSIDE RECORDS SUMMARY | 2025-07-31 17:32 | XMS_ITS | Encounter Summary ---
Author Organization [facility] Address [address] 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) (CMS/HCC) Alvarez Zimmer [place] [address] Phone: tel: fax: Referral ID Status Reason Start Date Expiration Date Visits Requested Visits Authorized [id number] Authorized Specialty Services Required 06/14/2025 12/14/2026 999 999 Encounter Details Date Type Department Care Team (Late st Contact Info) Description 06/14/2025 Orders Only [facility] [address] [place] [address] Alvarez Zimmer MD [address] [place] [address] Liver cirrhosis secondary to NAIDU [...] do you attend [facility] or moravian services? Patient unable to [...] How often do you attend chur or moravian services? Never 05/29/2025 Do you belong to [...] more drinks on one occasion? Never 06/05/2025 [facility] - Occupational Stress Questionnaire Answer [...] drink first t kennedy in the morning (EYE-UNIX ARCHITECT) to steady your nerves or to [...] PAV A Interventional Radiology [address] [place] [address] 08/01/2025 11:00 AM EDT Appointment [facility] Interventional Radiology [address] [place] [address] 08/08/2025 11:15 AM EDT Appointment [facility] Interventional Radiology [address] [place] [address] 08/08/2025 12:15 PM EDT Appointment [facility] Interventional Radiology [address] [place] [address] 2025 10:00 AM EDT Appointment [facility] Interventional Radiology [address] [place] [address] 2025 11:00 AM EDT Appointment [facility] Interventional Radiology [address] [place] [address] 08/20/2025 9:30 AM EDT Clinical Support [facility] [place] [address] [place] [address] 08/20/2025 10:30 AM EDT Social Work [facility] [place] [address] [place] [address] [place] [address] 08/20/2025 11:00 AM EDT Office Visit [facility] [place] [address] [place] [address] Jude Duque MD [address] [place] [address] Scheduled Referrals Name Type Priority Associated Diagnoses [...] documented as of this encounter Care Teams Utilization Management Um Nurse Relationship Specialty Start Date End Date Alvarez Zimmer MD [address] [place] [address] PCP - General Family Medicine 12/07/24 Lea Fernando 2[address] [facility] [address] [place] [address] Director Business Integration Endocrinology 08/29/24 Rachel Ray APRN [address] [facility] [address] [place] [address] Nurse Practitioner Gastroenterology 09/24/24 Tamera Isabel LPN VALUE-BASED TRANSFORMATION PROGRAM Licensed Practical Nurse 05/29/25 documented as of this encounter
--- OUTSIDE RECORDS SUMMARY | 2025-07-31 17:32 | XMS_ITS | Encounter Summary ---
Author Organization [facility] Address [facility] [place] [address] Care Team Providers Care Helper Coordinator Name Role Phone Lea Fernando Unavailable [phone] Rachel Ray ATTENDING PSYCHIATRIST Unavailable [phone] Alvarez Zimmer MD Primary Care Provider [phone] Tamera Isabel EXPENDITURE REQUISITION CLERK Unavailable UnavailAlina Bedolla RN Unavailable Unavailab Monique Che EXPENDITURE REQUISITION CLERK Unavailable Unavailable Encounter Details Date Type Department Care Team (Late st Contact Info) Description 06/14/2025 Telephone [facility] Medicine [address] [place] [address] Alvarez Zimmer MD [address] [place] [address] Social History Tobacco Use Types [...] often do you attend chur ch or buddhism services? Patient unable to answer 01/10/2025 Do you belong to any clubs o r organizations such as restorationism groups, [employer], [employer] or athletic groups, or school groups? Patient [...] week 05/29/2025 How often do you attend [facility] ch or buddhism services? Never 05/29/2025 Do you belong to any clubs o r organizations such as restorationism groups, [employer], [employer] or athletic groups, or school groups? No [...] more drinks on one occasion? Never 06/25/2025 [facility] of Occupat ional Health - Occupational Stress [...] time in the past 12 m [facility], were you homeless or living [...] drink first t kennedy in the morning (EYE-COMMUNICATIONS DEPARTMENT HEAD) to steady your nerves or to get rid of a hangover? 0 06/25/2025 CAGE Questionnaire Score 0 025 Utilities Answer Date Recorded In the past 12 months has th [employer], gas, oil, or water company threatened to [...] Suicidal Behavior (Lifetime) No 8:00 PM EDT Felecia Khanna documented as of this encounter Miscellaneous Notes * Telephone Encounter - Gissel Marino - 06/14/2025 1:11 PM EDT Called and informed pt that referral is in the computer and we will try to get all sorted out and set up in [place]. Pt voiced understanding. * Telephone Encounter - [...] is now staying with her sister in [place] for this assistance. Patient will be staying with her sister until something is set up with palliative care. Patient wants to be back on the transplant list. Please call patient to advise/discuss. Best contact number: [phone] Optimal time of day to reach caller: [...] A Interventional Radiology [address] [place] [address] 08/01/2025 11:00 AM EDT Appointment [facility] Interventional Radiology [address] [place] [address] 08/08/2025 11:15 AM EDT Appointment [facility] Interventional Radiology [address] [place] [address] 08/08/2025 12:15 PM EDT Appointment [facility] Interventional Radiology [address] [place] [address] 2025 10:00 AM EDT Appointment [facility] Interventional Radiology [address] [place] [address] 2025 11:00 AM EDT Appointment [facility] Interventional Radiology [address] [place] [address] 08/20/2025 9:30 AM EDT Clinical Support [facility] [place] [address] [place] [address] 08/20/2025 10:30 AM EDT Social Work [facility] [place] [address] [place] [address] [place] [address] 08/20/2025 11:00 AM EDT Office Visit [facility] [place] [address] [place] [address] Jude Duque MD [address] [place] [address] documented as of this encounter Visit Diagnoses [...] documented as of this encounter Care Teams Helper Coordinator Relationship Specialty Start Date End Date Alvarez Zimmer MD [address] [place] [address] PCP - General Family Medicine 12/07/24 Lea Fernando [address] [place] [address] Animal Chiropractor Endocrinology 08/29/24 Rachel Ray, ATTENDING PSYCHIATRIST [address] [place] [place] [address] Nurse Practitioner Gastroenterology 09/24/24 Tamera Isabel LPN VALUE-BASED TRANSFORMATION PROGRAM Licensed Practical Nurse 05/29/25 Alina Lovett, RN CH-VASCULAR & INTERVENTIONAL RADIOLOGY Registered Nurse 06/26/25 06/26/25 Monique Tapia LPN VALUE-[place]ED [place] [address] TCM Nurse 07/10/25 documented as of this encounter
--- OUTSIDE RECORDS SUMMARY | 2025-07-31 17:32 | XMS_ITS | Encounter Summary ---
Author Organization [facility] Address [address] [place] [address] Care Team Providers Care Policy Cancellation Clerk Name Role Phone Lea Fernando Unavailable [phone] Rachel Ray SHEEPSKIN PICKLER Unavailable [phone] Alvarez Zimmer MD Primary Care Provider Tamera Isabel HONEY LIQUEFIER Unavailable UnavailAlina Bedolla RN Unavailable Unavailab Monique Che HONEY LIQUEFIER Unavailable Unavailable Encounter Details Date Type Department Care Team (Late st Contact Info) Description 06/17/[address] [facility] Endocrinology [address] [place] [address] Deysi Antonio MD [address] [place] [address] Social History Tobacco Use Types [...] o r organizations such as adventist groups, [employer], [employer] or athletic groups, or school groups? Patient [...] week 05/29/2025 How often do you attend [facility] ch or hindu services? Never 05/29/2025 Do you belong to any clubs o r organizations such as adventist groups, unions, [employer] or athletic groups, or school groups? No [...] more drinks on one occasion? Never 06/25/2025 [facility] of Occupat ional Health - Occupational Stress [...] drink first t kennedy in the morning (EYE-EARLY INTERVENTIONIST) to steady your nerves or to get rid of a hangover? 0 06/25/2025 CAGE Questionnaire Score 0 025 Utilities Answer Date Recorded In the past 12 months has th [employer], gas, oil, or water company threatened to [...] taking 52 units of Lantus daily, and Gognkyl72 units for regular meals, and 12 units [...] other concerns voiced. * Telephone Encounter - Yeni Escalante - 06/17/2025 10:42 AM EDT Clinical Concern/Question Reason for Call: Needing to speak w/nurse about decreased blood sugar levels, especially at night? Best contact number: [phone] Optimal time of day to reach caller: ANYTIME Additional comments/information from caller: None Note: Please do not reply to this message. Follow-up communication and further actions as a result of this message need to be communicated with the patient directly, if the patient is not active onMyChart. If the patient is active on MyChart, they will receive notification of the communication/outcome via VOYAAhart. documented in this encounter Plan of Treatment Upcoming Encounters Date Type Department Care Team (Late st Contact Info) Description 08/01/2025 10:00 AM EDT Appointment [facility] Interventional Radiology [address] [place] [address] 08/01/2025 11:00 AM EDT Appointment [facility] Interventional Radiology [address] [place] [address] 08/08/2025 11:15 AM EDT Appointment [facility] Interventional Radiology [address] [place] [address] 08/08/2025 12:15 PM EDT Appointment [facility] Interventional Radiology [address] [place] [address] 2025 10:00 AM EDT Appointment [facility] Interventional Radiology [address] [place] [address] 2025 11:00 AM EDT Appointment [facility] Interventional Radiology [address] [place] [address] 08/20/2025 9:30 AM EDT Clinical Support [facility] [address] [place] [address] 08/20/2025 10:30 AM EDT Social Work [facility] [place] [address] [facility] [address] [place] [address] Deysi Ortega [place], [place] [address] 08/20/2025 11:00 AM EDT Office Visit [facility] [place] [address] [facility] [address] [place] [address] Jude Duque MD [address] [facility] [address] [place] [address] documented as of this encounter [...] documented as of this encounter Care Teams Policy Cancellation Clerk Relationship Specialty Start Date End Date Alvarez Zimmer MD [address] [place] [address] PCP - General Family Medicine 12/07/24 Lea Fernando 2[address] [facility] 125 [place] [address] Tank Truck Engine Mechanic Endocrinology 08/29/24 Rachel Ray, SHEEPSKIN PICKLER [address] [facility] [address] [place] [address] Nurse Practitioner Gastroenterology 09/24/24 Tamera Isabel, HONEY LIQUEFIER VALUE-BASED TRANSFORMATION PROGRAM Licensed Practical Nurse 05/29/25 lAina Lovett, RN CH-VASCULAR & INTERVENTIONAL RADIOLOGY Registered Nurse 06/26/25 06/26/25 Monique Tapia LPN VALUE-[place]ED [place] [address] TCM Nurse 07/10/25 documented as of this encounter
--- OUTSIDE RECORDS SUMMARY | 2025-07-31 17:32 | XMS_ITS | Encounter Summary ---
Author Organization [facility] Address [address] [place] [address] Care Team Providers Care Senior Sql Server Developer Name Role Phone Lea Fernando Unavailable [phone] Rachel Ray FRONT END SPECIALIST Unavailable [phone] Alvarez Zimmer MD Primary Care Provider [phone] Tamera Isabel PROFESSOR OF POULTRY SCIENCE Unavailable Unavailabl e Encounter Details Date Type Department Care Team (Late st Contact Info) Description 05/23/2025 Results Follow-Up [facility] [address] [facility] [address] [place] [address] Wilma Arana, RN HOSPITAL LIVER [id number] [address] [place] [address] Social History Tobacco Use Types [...] week 01/10/2025 How often do you attend [facility] or samaritan services? Patient unable to [...] drink first t kennedy in the morning (EYE-FINANCIAL AID COORDINATOR) to steady your nerves or to get rid of a hangover? 0 10/22/2024 CAGE Questionnaire Score 0 024 Utilities Answer Date Recorded In the past 12 months has th [employer], gas, oil, or water [employer] threatened to shut off services in your [...] 06/11/2025 10:59 AM EDT Suhail Stephen A Poor appetite or overeating Several days [...] orders were placed on 05/17 to advise laboratory mechanic helper of this they should be able to [...] A Interventional Radiology [address] [place] [address] 08/01/2025 11:00 AM EDT Appointment [facility] Interventional Radiology [address] [place] [address] 08/08/2025 11:15 AM EDT Appointment [facility] Interventional Radiology [address] [place] [address] 08/08/2025 12:15 PM EDT Appointment [facility] Interventional Radiology [address] [place] [address] 2025 10:00 AM EDT Appointment [facility] Interventional Radiology [address] [place] [address] 2025 11:00 AM EDT Appointment [facility] Interventional Radiology [address] [place] [address] 08/20/2025 9:30 AM EDT Clinical Support [facility] [place] [address] [address] 08/20/2025 10:30 AM EDT Social Work [facility] [place] [address] [address] [place] [address] 08/20/2025 11:00 AM EDT Office Visit [facility] [place] [address] [place] [address] Jude Duque MD [address] [place] [address] documented as of this encounter Visit Diagnoses [...] as of this encounter Care Teams Senior Sql Server Developer Relationship Specialty Start Date End Date Alvarez Zimmer MD [address] [place] [address] PCP - General Family Medicine 12/07/24 Lea Fernando [address] [facility] [address] [place] [address] Learning Administrator Endocrinology 08/29/24 Rachel Ray, FRONT END SPECIALIST [address] [facility] [address] [place] [address] Nurse Practitioner Gastroenterology 09/24/24 Tamera Isabel LPN VALUE-BASED TRANSFORMATION PROGRAM Licensed Practical Nurse 05/29/25 documented as of this encounter
--- OUTSIDE RECORDS SUMMARY | 2025-07-31 17:32 | XMS_ITS | Encounter Summary ---
Author Organization [facility] Address [address] [place] [address] Care Team Providers Care E Learning Specialist Name Role Phone Lea Fernando Unavailable [phone] Rachel Ray SYSTEMS SOFTWARE MANAGER Unavailable [phone] Alvarez Zimmer MD Primary Care Provider [phone] Tamera Isabel LPN Unavailable Unavailabl e Reason for Referral * Imaging (Routine) - Closed Specialty Diagnoses / Procedures Referred By Contac t Referred To Contact Radiology Diagnoses Other ascites Alcoholic cirrhosis of liver with ascites (CMS/HCC) Procedures US Guided Abdominal Paracentesis Marianna Gordon APRN [address] [place] [address] Phone: tel: fax: Referral ID Status Reason Start Date Expiration Date Visits Re quested Visits Authorized [id number] Closed 06/14/2025 12/14/2026 1 1 * Imaging (Routine) - Closed Specialty Diagnoses / Procedures Referred By Contac t Referred To Contact Radiology Diagnoses Pleural effusion Shortness of breath Procedures US Guided Thoracentesis Marianna Gordon APRN [address] [place] [address] Phone: tel: fax: Referral ID Status Reason Start Date Expiration Date Visits Re quested Visits Authorized [id number] Closed 06/14/2025 12/14/2026 1 1 Encounter Details Date Type Department Care Team (Late st Contact Info) Description 06/14/2025 Orders Only [facility] Interventional Radiology [address] [place] [address] Marianna Gordon APRN [address] [place] [address] Other ascites (Primary Dx); Pleural effusion; Shortness [...] 01/10/2025 How often do you attend [facility] or protestant services? Patient unable to [...] more drinks on one occasion? Never 06/05/2025 [facility] - Occupational Stress Questionnaire Answer [...] drink first t kennedy in the morning (EYE-MARKING MACHINE OPERATOR) to steady your nerves or [...] Appointment [facility] A Interventional Radiology [address] [place] [address] 08/01/2025 11:00 AM EDT Appointment [facility] A Interventional Radiology [address] [place] [address] 08/08/2025 11:15 AM EDT Appointment [facility] A Interventional Radiology [address] [place] [address] 08/08/2025 12:15 PM EDT Appointment [facility] Interventional Radiology [address] [place] [address] 2025 10:00 AM EDT Appointment [facility] Interventional Radiology [address] [place] [address] 2025 11:00 AM EDT Appointment [facility] Interventional Radiology [address] [place] [address] 08/20/2025 9:30 AM EDT Clinical Support [facility] [address] [place] [address] 08/20/2025 10:30 AM EDT Social Work [facility] [address] [place] [address] SamanthaBrid[place] [address] 08/20/2025 11:00 AM EDT Office Visit [facility] [address] [place] [address] Jude Duque MD [address] [place] [address] documented as of this encounter Results * US Guided Abdominal Paracentesis (07/04/2025 11:01 [...] Narrative 07/04/2025 3:50 PM EDT CLINICAL INDICATION: Gabi Zimmer is [...] presents today for thoracentesis and paracentesis. TECHNIQUE: Crawler Crane Operator: Maria Dolores Ontiveros APRN Secondary Dog Hair Clipper: None. Nurse: Mark Technologist: Dayne Phillips Dose: [...] Wily Caballero MD - 07/04/2025 CLINICAL INDICATION: Gabi Zimmer is a 64 [...] presents today for thoracentesis and paracentesis. TECHNIQUE: Crawler Crane Operator: Maria Dolores Ontiveros APRN Secondary Dog Hair Clipper: None. Nurse: Mark Technologist: Dayne Phillips Dose: [...] Narrative 07/04/2025 3:50 PM EDT CLINICAL INDICATION: Gabi Zimmer is [...] presents today for thoracentesis and paracentesis. TECHNIQUE: Crawler Crane Operator: Maria Dolores Ontiveros APRN Secondary Dog Hair Clipper: None. Nurse: Mark Technologist: Dayne Phillips Dose: [...] Wily Caballero MD - 07/04/2025 CLINICAL INDICATION: Gabi Zimmer is a 64 [...] presents today for thoracentesis and paracentesis. TECHNIQUE: Crawler Crane Operator: Maria Dolores Ontiveros APRN Secondary Dog Hair Clipper: None. Nurse: Mark Technologist: Dayne Phillips Dose: [...] Mccall MD on 07/04/2025 3:50 PM us Mariannamarifer Gordon APRN IMG US PROCEDURES Final Resu lt documented in this encounter Visit Diagnoses Diagnosis Other ascites- [...] documented as of this encounter Care Teams E Learning Specialist Relationship Specialty Start Date End Date Alvarez Zimmer MD [address] [place] [address] PCP - General Family Medicine 12/07/24 Lea Fernando [address] [facility] [address] [place] [address] Oil Derrick Operator Endocrinology 08/29/24 Rachel Ray APRN [address] [facility] [address] [place] [address] Nurse Practitioner Gastroenterology 09/24/24 Tamera Isabel LPN VALUE-BASED TRANSFORMATION PROGRAM Licensed Practical Nurse 05/29/25 documented as of this encounter
--- OUTSIDE RECORDS SUMMARY | 2025-07-31 17:32 | XMS_ITS | Encounter Summary ---
Author Organization Healthcare Address [address] [place] [address] Care Team Providers Care College Or University Registrar Name Role Phone Lea Fernando Unavailable [phone] Rachel Ray ORDER DESK CALLER Unavailable [phone] Alvarez Zimmer MD Primary Care Provider [phone] Tamera Isabel DIRECTOR WORK Unavailable Unavailabl e Reason for Referral * Imaging (Routine) - Closed Specialty Diagnoses / Procedures Referred By Eder zhu Referred To Contact Radiology Diagnoses Other ascites Procedures US Abdomen Focused Region Other US Guided Abdominal Paracentesis Marianna Gordon APRN [address] [place] [address] Phone: tel: fax: Referral ID Status Reason Start Date Expiration Date Visits Re quested Visits Authorized [id number] Closed 06/14/2025 12/14/2026 1 1 * Imaging (Routine) - Closed Specialty Diagnoses / Procedures Referred By Contherbert t Referred To Contact Radiology Diagnoses Other ascites Procedures US Guided Abdominal Paracentesis Marianna Gordon APRN [address] [place] [address] Phone: tel: fax: Referral ID Status Reason Start Date Expiration Date Visits Re quested Visits Authorized [id number] Closed 06/14/2025 12/14/2026 1 1 * Imaging (Routine) - Closed Specialty Diagnoses / Procedures Referred By Contac t Referred To Contact Radiology Diagnoses Shortness of breath Pleural effusion Procedures US Guided Thoracentesis Marianna Gordon APRN [address] [place] [address] Phone: tel: fax: Referral ID Status Reason Start Date Expiration Date Visits Re quested Visits Authorized [id number] Closed 06/14/2025 12/14/2026 1 1 * Imaging (Routine) - Closed Specialty Diagnoses / Procedures Referred By Contac t Referred To Contact Radiology Diagnoses Other ascites Procedures US Guided Abdominal Paracentesis Marianna Gordon APRN [address] [place] [address] Phone: tel: fax: Referral ID Status Reason Start Date Expiration Date Visits Re quested Visits Authorized [id number] Closed 06/14/2025 12/14/2026 1 1 * Imaging (Routine) - Closed Specialty Diagnoses / Procedures Referred By Contac t Referred To Contact Radiology Diagnoses Shortness of breath Pleural effusion Procedures US Guided Thoracentesis Marianna Gordon APRN [address] [place] [address] Phone: tel: fax: Referral ID Status Reason Start Date Expiration Date Visits Re quested Visits Authorized [id number] Closed 06/14/2025 12/14/2026 1 1 * Imaging (Routine) - Closed Specialty Diagnoses / Procedures Referred By Eder t Referred To Contact Radiology Diagnoses Shortness of breath Pleural effusion Procedures US Guided Thoracentesis Marianna Gordon APRN [address] [place] [address] Phone: tel: fax: Referral ID Status Reason Start Date Expiration Date Visits Re quested Visits Authorized [id number] Closed 06/14/2025 12/14/2026 1 1 Encounter Details Date Type Department Care Team (Late st Contact Info) Description 06/14/2025 Orders Only [facility] Interventional Radiology [address] [place] [address] Marianna Gordon APRN [address] [place] [address] Shortness of breath (Primary Dx); [...] 01/10/2025 How often do you attend [facility] or buddhism services? Patient unable to answer [...] How often do you attend chur or buddhism services? Never 05/29/2025 Do you [...] more drinks on one occasion? Never 06/05/2025 [facility]ational Stress Questionnaire Answer Date [...] drink first t kennedy in the morning (EYE-AUDITOR SUPERVISOR) to steady your nerves or to [...] Appointment [facility] Interventional Radiology [address] [place] [address] 08/01/2025 11:00 AM EDT Appointment [facility] Inter[facility] Radiology [address] [place] [address] 08/08/2025 11:15 AM EDT Appointment [facility] [address] [place] [address] 08/08/2025 12:15 PM EDT Appointment [facility] [address] [place] [address] 2025 10:00 AM EDT Appointment [facility] Radiology [address] [place] [address] 2025 11:00 AM EDT Appointment [facility] Inter[facility] Radiology [address] [place] [address] 08/20/2025 9:30 AM EDT Clinical Support [facility] [place] [address] [place] [address] 08/20/2025 10:30 AM EDT Social Work [facility] [place] [address] [place] [address] SamanthaDeysi arriola Tricia [place], [place] [id number] 08/20/2025 11:00 AM EDT Office Visit [facility] [place] [address] [place] [address] Jude Duque MD [address] [place] [address] documented as of this encounter Results * US Guided Abdominal Paracentesis (07/25/2025 12:55 [...] cirrhosis with ascites and hepatic hydrothorax. TECHNIQUE: Manager Community: Fabiana Renee Secondary Gear Generator Set Up Operator: Maria Dolores Ontiveros APRN. Rad Dose: NA [...] cirrhosis with ascites and hepatic hydrothorax. TECHNIQUE: Manager Community: Fabiana Renee Secondary Gear Generator Set Up Operator: Maria Dolores Ontiveros APRN. Rad Dose: NA [...] the ascites. [facility] A total of 2.7 liters [...] by ascites and intermittent hepatic hydrothorax. TECHNIQUE: Manager Community: Maria Dolores Ontiveros APRN Secondary Gear Generator Set Up Operator: None. Rad Dose: NA Medications: Continuous physiologic [...] complicated by ascites and intermittenthepatic hydrothorax. TECHNIQUE: Manager Community: Maria Dolores Ontiveros APRN Secondary Gear Generator Set Up Operator: None. Rad Dose: NA Medications: Continuous physiologic [...] complicated by ascites and hepatic hydrothorax. TECHNIQUE: Manager Community: Shaniqua Mccurdy APRN Secondary Gear Generator Set Up Operator: None. Rad Dose: NA Medications: Continuous physiologic [...] cirrhosis complicated by ascites andhepatic hydrothorax. TECHNIQUE: Manager Community: Shaniqua Mccurdy APRN Secondary Gear Generator Set Up Operator: None. Rad Dose: NA Medications: Continuous physiologic [...] by ascites and recurrent hepatic hydrothorax. TECHNIQUE: Manager Community: Shaniqua Mccurdy APRN Secondary Gear Generator Set Up Operator: None. Rad Dose: NA Medications: Continuous physiologic [...] complicated by ascites andrecurrent hepatic hydrothorax. TECHNIQUE: Manager Community: Shaniqua Mccurdy APRN Secondary Gear Generator Set Up Operator: None. Rad Dose: NA Medications: Continuous physiologic [...] on 07/18/2025 2:18 PM us Marianna Gordon ORDER DESK CALLER IMG US PROCEDURES Final Resu lt * US Abdomen Focused Region Other (07/11/2025 [...] by ascites and intermittent hepatic hydrothorax TECHNIQUE: Manager Community: ADRI [place] Procedure: Limited abdominal ultrasound COMPARISON: [...] complicated by ascites and intermittenthepatic hydrothorax TECHNIQUE: Manager Community: ADRI [place] Procedure: Limited abdominal ultrasound COMPARISON: [...] 07/11/2025 4:21 PM us Marianna N Cheeks ORDER DESK CALLER IMG US PROCEDURES Final Resu lt * [...] by ascites and intermittent hepatic hydrothorax TECHNIQUE: Manager Community: ADRI [place] Secondary Gear Generator Set Up Operator: None. Rad Dose: NA Medications: Continuous physiologic monitoring provided by a qualified healthcare professional. Administered: 1% Lidocaine SQ. Antibiotics: NA Time out: 1125 Procedure: After discussion of risks and benefits, [...] complicated by ascites and intermittenthepatic hydrothorax TECHNIQUE: Manager Community: ADRI [place] Secondary Gear Generator Set Up Operator: None. Rad Dose: NA Medications: Continuous physiologic [...] MD on 07/11/2025 4:04 PM us Marianna Gordon ORDER DESK CALLER IMG US PROCEDURES Final Resu lt documented in this encounter Visit Diagnoses Diagnosis Shortness of breath- Primary Pleural effusion Unspecified pleural effusion Other ascites Shortness of breath Pleural effusion Unspecified pleural effusion Other ascites Shortness of breath Pleural effusion Unspecified pleural effusion Other ascites Pleural effusion associated with hepatic disorder- Primary [...] documented as of this encounter Care Teams [employer] Registrar Relationship Specialty Start Date End Date Alvarez Zimmer MD [address] [place] [address] PCP - General Family Medicine 12/07/24 Lea Fernando [address] [facility] [address] [place] [address] Staff Counselor Endocrinology 08/29/24 Rachel Ray, ORDER DESK CALLER [address] [facility] [address] [place] [address] Nurse Practitioner Gastroenterology 09/24/24 Tamera Isabel LPN VALUE-BASED TRANSFORMATION PROGRAM Licensed Practical Nurse 05/29/25 documented as of this encounter
--- OUTSIDE RECORDS SUMMARY | 2025-07-31 17:32 | XMS_ITS | Encounter Summary ---
Author Organization [facility] Address [address] [place] [address] Care Team Providers Care Sales Representative Aircraft Name Role Phone Lea Fernando Unavailable [phone] Rachel Ray STORE FACILITY TECHNICIAN Unavailable [phone] Alvarez Zimmer MD Primary Care Provider [phone] Tamera Isabel LPN Unavailable Unavailabl e Encounter [...] one occasion? Never 06/05/2025 [facility] - [...] any time in the past 12 m [facility], were you homeless or living [...] drink first t kennedy in the morning (EYE-ANGLESMITH) to steady your nerves or to get rid of a hangover? 0 10/22/2024 CAGE Questionnaire Score 0 024 Utilities Answer Date Recorded In the past 12 months has th [employer] electric, gas, oil, or water company threatened [...] Appointment [facility] Interventional Radiology [address] [place] [address] 08/01/2025 11:00 AM EDT Appointment [facility] Interventional Radiology [address] [place] [address] 08/08/2025 11:15 AM EDT Appointment [facility] Inter[facility] Radiology [address] [place] [address] 08/08/2025 12:15 PM EDT Appointment [facility] Inter[facility] Radiology [address] [place] [address] 2025 10:00 AM EDT Appointment [facility] Interventional Radiology [address] [place] [address] 2025 11:00 AM EDT Appointment [facility] Interventional Radiology [address] [place] [address] 08/20/2025 9:30 AM EDT Clinical Support [facility] [place] [address] [facility] [address] [place] [address] 08/20/2025 10:30 AM EDT Social Work [facility] [address] [facility] [address] [place] [address] Deysi Ortega [place], [place] [id number] 08/20/2025 11:00 AM EDT Office Visit [facility] [address] [address] Jude Duque MD [address] [facility] [address] [place] [address] documented as of this encounter [...] as of this encounter Care Teams Sales Representative Aircraft Relationship Specialty Start Date End Date Alvarez Zimmer MD [address] [place] [phone] PCP - General Family Medicine 12/07/24 Lea Fernando [address] [facility] [address] [place] [address] Patient Access Representative Endocrinology 08/29/24 Rachel Ray, STORE FACILITY TECHNICIAN [address] [facility] [address] [place] [address] Nurse Practitioner Gastroenterology 09/24/24 Tamera Isabel LPN VALUE-BASED TRANSFORMATION PROGRAM Licensed Practical Nurse 05/29/25 documented as of this encounter
--- OUTSIDE RECORDS SUMMARY | 2025-07-31 17:32 | XMS_ITS | Encounter Summary ---
Author Organization [facility] Address [address] [place] [address] Care Team Providers Care Kitchen Steward Name Role Phone Lea Fernando Unavailable [phone] Rachel Ray CONTACT OFFICER Unavailable [phone] Alvarez Zimmer MD Primary Care Provider [phone] Tamera Isabel TOY ASSEMBLER WOOD Unavailable Unavailabl e Encounter Details Date Type Department Care Team (Late st Contact Info) Description 06/14/2025 Telephone [facility] [address] [place] [address] Alvarez Zimmer MD [address] [place] [address] Social History Tobacco Use Types [...] How often do you attend [facility] or mosque services? Patient unable to answer [...] you attend chur ch or mosque services? Never 05/29/2025 Do you [...] more drinks on one occasion? Never 06/05/2025 [facility] [...] any time in the past 12 m [facility], were you homeless or [...] drink first t kennedy in the morning (EYE-WARPER CREELER) to steady your nerves or to get rid of a hangover? 0 10/22/2024 CAGE Questionnaire Score 0 024 Utilities Answer Date Recorded In the past 12 months has th [employer], gas, oil, or water [employer] threatened to shut off services in your [...] but I suspect the son is best linesperson. * Telephone Encounter - Christy Buckley - 06/14/2025 1:55 PM EDT Skye with [facility] called questioning if Dr. Zimmer will be following the patient? Who is the best linesperson, son or sister? documented in this encounter Plan of Treatment Upcoming Encounters Date Type Department Care Team (Late st Contact Info) Description 08/01/2025 10:00 AM EDT Appointment [facility] Interventional Radiology [address] [place] [address] 08/01/2025 11:00 AM EDT Appointment [facility] Interventional Radiology [address] [place] [address] 08/08/2025 11:15 AM EDT Appointment [facility] Interventional Radiology [address] [place] [address] 08/08/2025 12:15 PM EDT Appointment [facility] Interventional Radiology [address] [place] [address] 2025 10:00 AM EDT Appointment [facility] Interventional Radiology [address] [place] [address] 2025 11:00 AM EDT Appointment [facility] Interventional Radiology [address] [place] [address] 08/20/2025 9:30 AM EDT Clinical Support [facility] [place] [address] [address] 08/20/2025 10:30 AM EDT Social Work [facility] [place] [address] [place] [address] [place] [address] 08/20/2025 11:00 AM EDT Office Visit [facility] [address] [place] [address] Jude Duque MD [address] [place] [address] documented as of [...] documented as of this encounter Care Teams Kitchen Steward Relationship Specialty Start Date End Date Alvarez Zimmer MD [address] [place] [address] PCP - General Family Medicine 12/07/24 Lea Fernando [address] [place] [address] Category Specialist Endocrinology 08/29/24 Rachel Ray APRN [address] [place] [address] Nurse Practitioner Gastroenterology 09/24/24 Tamera Isabel LPN VALUE-BASED TRANSFORMATION PROGRAM Licensed Practical Nurse 05/29/25 documented as of this encounter
--- OUTSIDE RECORDS SUMMARY | 2025-07-31 17:32 | XMS_ITS | Encounter Summary ---
Author Organization [facility] Address [address] [place] [address] Care Team Providers Care Sound Ranging Crewmember Name Role Phone Lea Fernando Unavailable [phone] Rachel Ray CHOPPER GUN OPERATOR Unavailable [phone] Alvarez Zimmer MD Primary Care Provider [phone] Tamera Isabel LPN Unavailable Unavailabl e Encounter [...] often do you attend chur ch or spiritism services? Patient unable to answer [...] often do you attend chur ch or spiritism services? Never 05/29/2025 Do you [...] occasion? Never 06/05/2025 [facility] - [...] t kennedy in the morning (EYE-DIRECTOR OF ELEMENTARY EDUCATION) to steady your nerves or to get rid of a hangover? 0 10/22/2024 CAGE Questionnaire Score 0 024 Utilities Answer Date Recorded In the past 12 months has th [employer] electric, gas, oil, or water company threatened [...] Appointment [facility] Interventional Radiology [address] [place] [address] 08/01/2025 11:00 AM EDT Appointment [facility] Interventional Radiology [address] [place] [address] 08/08/2025 11:15 AM EDT Appointment [facility] Interventional Radiology [address] [place] [address] 08/08/2025 12:15 PM EDT Appointment [facility] Interventional Radiology [address] [place] [address] 2025 10:00 AM EDT Appointment [facility] Interventional Radiology [address] [place] [address] 2025 11:00 AM EDT Appointment [facility] Interventional Radiology [address] [place] [address] 08/20/2025 9:30 AM EDT Clinical Support [facility] [place] [address] [facility] [address] [place] [address] 08/20/2025 10:30 AM EDT Social Work [facility] [address] [facility] [place] [address] [place] [address] 08/20/2025 11:00 AM EDT Office Visit [facility] [address] [address] Jude Duque MD [address] [facility] [address] [place] [address] documented as of this encounter [...] documented as of this encounter Care Teams Sound Ranging Crewmember Relationship Specialty Start Date End Date Alvarez Zimmer MD [address] [place] [phone] PCP - General Family Medicine 12/07/24 Lea Fernando [address] [facility] [address] [place] [address] Hog Raiser Endocrinology 08/29/24 Rachel Ray, CHOPPER GUN OPERATOR [address] [facility] [address] [place] [address] Nurse Practitioner Gastroenterology 09/24/24 Tamera Isabel LPN VALUE-BASED TRANSFORMATION PROGRAM Licensed Practical Nurse 05/29/25 documented as of this encounter
--- OUTSIDE RECORDS SUMMARY | 2025-07-31 17:33 | XMS_ITS | Encounter Summary ---
Author Organization Healthcare Address [address] [place] [address] Care Team Providers Care Contract Negotiation Specialist Name Role Phone NaseemVivTorLea Unavailable [phone] Rachel Ray POULTRY FARM MANAGER Unavailable [phone] Taina Lyles POULTRY FARM MANAGER Primary Care Provider [phone] Monique Tapia REHAB DEPARTMENT MANAGER Unavailable Unavailable Alvarez Zimmer MD Primary Care Provider [phone] Shaniqua Trevino REHAB DEPARTMENT MANAGER Unavailable Unavailable Tamera Isabel REHAB DEPARTMENT MANAGER Unavailable UnavailAlina Bedolla RN Unavailable Unavailab Monique Che LPN Unavailable Unavailable Encounter Details Date Type Department Care Team (Late st Contact Info) Description 10/24/2024 Ophth Exam [facility] [address] [place] [address] Serene Barragan MD [address] [place] [address] Social History Tobacco Use Types [...] and Family Not on file 10/16/2024 Attends [employer] Not on file 10/16 Active Member [...] in a assisted (including now)? Yes 08/29/2024 Housing Stability Vital [...] living in a assisted (including now)? No 10/16/2024 CAGE ASSESSMENT Answer [...] drink first t kennedy in the morning (EYE-OPEN CLAIMS REPRESENTATIVE) to steady your nerves or to [...] (Past 1 Month) No 024 8:00 PM EST [place], Rochelle F, RN 2. Non-Specific Active Suici liz Thoughts (Past 1 Month) No 10/26/2024 8:00 PM Rochelle [place], RN 6. Suicidal Behavior (Lifetime) No 8:00 PM Rochelle [place], RN documented as of this encounter Plan of Treatment Upcoming Encounters Date Type Department Care Team (Late st Contact Info) Description 08/01/2025 10:00 AM EDT Appointment [facility] Interventional Radiology [address] [place] [address] 08/01/2025 11:00 AM EDT Appointment [facility] Interventional Radiology [address] [place] [address] 08/08/2025 11:15 AM EDT Appointment [facility] Inter[facility] Radiology [address] [place] [address] 08/08/2025 12:15 PM EDT Appointment [facility] Inter[facility] [address] [place] [address] 2025 10:00 AM EDT Appointment [facility] Inter[facility]iology [address] [place] [address] 2025 11:00 AM EDT Appointment [facility] Inter[facility] Radiology [address] [place] [address] 08/20/2025 9:30 AM EDT Clinical Support [facility] [place] [address] [place] [address] 08/20/2025 10:30 AM EDT Social Work [facility] [place] [address] [place] [address] [place] [address] 08/20/2025 11:00 AM EDT Office Visit [facility] [place] [address] [place] [address] Jude Duque MD [address] [place] [address] documented as of this encounter Visit Diagnoses [...] documented as of this encounter Care Teams Contract Negotiation Specialist Relationship Specialty Start Date End Date Taina Lyles, POULTRY FARM MANAGER [address] [place] [address] [place] [address] PCP - General 10/01/24 12/06/24 Alvarez Zimmer MD [address] [place] [address] PCP - General Family Medicine 12/07/24 Lea Fernando [address] [place] [address] Food Service Worker Hospital Endocrinology 08/29/24 Rachel Ray, POULTRY FARM MANAGER [address] [place] [address] Nurse Practitioner Gastroenterology 09/24/24 Monique Tapia LPN VALUE-[place]ED [place] [address] TCM Nurse 11/28/24 12/28/24 Shaniqua Trevino LPN TCM Nurse 01/15/25 02/14/25 Tamera Isabel LPN VALUE-BASED TRANSFORMATION PROGRAM Licensed Practical Nurse 05/29/25 Alina Lovett, RN [facility] RADIOLOG[facility] Registered Nurse 06/26/25 06/26/25 Monique Tapia LPN VALUE-[place] [address] TCM Nurse 07/10/25 documented as of this encounter
--- OUTSIDE RECORDS SUMMARY | 2025-07-31 17:33 | XMS_ITS | Encounter Summary ---
Author Organization [facility] Address [address] [place] [address] Care Team Providers Care Pen Maker Name Role Phone Lea Fernando Unavailable [phone] Rachel Ray PARKS AND RECREATION WORKER Unavailable [phone] Alvarez Zimmer MD Primary Care Provider [phone] Tamera Isabel LPN Unavailable Unavailabl e Encounter [...] first t kennedy in the morning (EYE-MEDICAL GRADE SHOEMAKER) to steady your nerves or to get rid of a hangover? 0 10/22/2024 CAGE Questionnaire Score 0 024 Utilities Answer Date Recorded In the past 12 months has th [employer] electric, gas, oil, or water company threatened [...] Appointment [facility] Interventional Radiology [address] [place] [address] 08/01/2025 11:00 AM EDT Appointment [facility] Interventional Radiology [address] [place] [address] 08/08/2025 11:15 AM EDT Appointment [facility] Radiology [address] [place] [address] 08/08/2025 12:15 PM EDT Appointment [facility] [address] [place] [address] 2025 10:00 AM EDT Appointment [facility] Inter[facility] Radiology [address] [place] [address] 2025 11:00 AM EDT Appointment [facility] Interventional Radiology [address] [place] [address] 08/20/2025 9:30 AM EDT Clinical Support [facility] [place] [address] [facility] [address] [place] [address] 08/20/2025 10:30 AM EDT Social Work [facility] [address] [facility] [place] [address] Deysi Ortega [place], [place] [id number] 08/20/2025 11:00 AM EDT Office Visit [facility] [address] [address] Jude Duque MD [address] [facility] [address] [place] [address] documented as of this [...] documented as of this encounter Care Teams Pen Maker Relationship Specialty Start Date End Date Alvarez Zimmer MD [address] [place] [phone] PCP - General Family Medicine 12/07/24 Lea Fernando [address] [facility] 125 [place] [address] Rehabilitation Services Director Endocrinology 08/29/24 Rachel Ray, PARKS AND RECREATION WORKER [address] [facility] [address] [place] [address] Nurse Practitioner Gastroenterology 09/24/24 Tamera Isabel LPN VALUE-BASED TRANSFORMATION PROGRAM Licensed Practical Nurse 05/29/25 documented as of this encounter
--- OUTSIDE RECORDS SUMMARY | 2025-07-31 17:33 | XMS_ITS | Encounter Summary ---
Author Organization Healthcare Address [address] [place] [address] Care Team Providers Care Orthoptist Name Role Phone Lea Fernando Unavailable [phone] Rachel Ray DYE LINE OPERATOR Unavailable [phone] Alvarez Zimmer MD Primary Care Provider [phone] Tamera Isabel LPN Unavailable Unavailabl Alina Jennings RN Unavailable Unavailab le Encounter Details Date Type Department Care Team (Late st Contact Info) Description 06/23/2025 Orders Only External Location [address] [place] [address] Kandice Maldonado, DYE LINE OPERATOR [address] [place] [address] Social History Tobacco Use Types [...] o r organizations such as orthodox groups, [employer], [employer] or athletic groups, or school groups? Patient [...] week 05/29/2025 How often do you attend the medical center ch or orthodoxy services? Never 05/29/2025 Do you belong to any clubs o r organizations such as orthodox groups, unions, Micro[employer] or athletic groups, or school groups? No [...] more drinks on one occasion? Never 06/25/2025 [facility] - Occupational Stress [...] drink first t kennedy in the morning (EYE-ANIMAL HERDER) to steady your nerves or to get rid of a hangover? 0 06/25/2025 CAGE Questionnaire Score 0 025 Utilities Answer Date Recorded In the past 12 months has th [employer] electric, gas, oil, or water company threatened [...] one occasion? Never 06/25/2025 12:50 PM EDT eHnny Comer * Calculated C-SSRS Risk Score (Lifetime/Recent) [...] Appointment [facility] Interventional Radiology [address] [place] [address] 08/01/2025 11:00 AM EDT Appointment [facility] Radiology [address] [place] [address] 08/08/2025 11:15 AM EDT Appointment [facility] [address] [place] [address] 08/08/2025 12:15 PM EDT Appointment [facility] [address] [place] [address] 2025 10:00 AM EDT Appointment [facility] [address] [place] [address] 2025 11:00 AM EDT Appointment [facility] Inter[facility] Radiology [address] [place] [address] 08/20/2025 9:30 AM EDT Clinical Support [facility] [place] [address] [place] [address] 08/20/2025 10:30 AM EDT Social Work [facility] [place] [address] [place] [address] [place] [address] 08/20/2025 11:00 AM EDT Office Visit [facility] [place] [address] [place] [address] Jude Duque MD [address] [place] [address] documented as of this encounter Procedures Procedure Name Priority Date/Time Associated Diagnosis Comments CT MSK OUTSIDE IMAGES 06/23/2025 6:38 PM EDT documented in this encounter Results * CT MSK OUTSIDE IMAGES (06/23/2025 6:38 PM EDT) Anatomical Region Laterality Modality Computed Tomogra phy 06/23/2025 6:38 PM EDT us Kandice Maldonado DYE LINE OPERATOR IMG CT PROCEDURES Final Res ult documented [...] documented as of this encounter Care Teams Orthoptist Relationship Specialty Start Date End Date Alvarez Zimmer MD [address] [place] [address] PCP - General Family Medicine 12/07/24 Lea Fernando [address] [place] [address] Saddle Stitching Machine Operator Endocrinology 08/29/24 Rachel Ray, DYE LINE OPERATOR [address] [place] [address] Nurse Practitioner Gastroenterology 09/24/24 Tamera Isabel LPN VALUE-BASED TRANSFORMATION PROGRAM Licensed Practical Nurse 05/29/25 Alina Lovett, RN CH-VASCULAR & INTERVENTIONAL RADIOLOGY Registered Nurse 06/26/25 06/26/25 documented as of this encounter
--- OUTSIDE RECORDS SUMMARY | 2025-07-31 17:33 | XMS_ITS | Encounter Summary ---
Author Organization [facility] Address [address] [place] [address] Care Team Providers Care Astrochemist Name Role Phone eLa Fernando Unavailable [phone] Rachel Ray TRAVEL COORDINATOR Unavailable [phone] Alvarez Zimmer MD Primary Care Provider [phone] Tamera Isabel CEMENT TRUCK DRIVER Unavailable Unavailabl e Reason for Visit * Reason Onset Date Comments Med Refill 06/01/2025 Encounter Details Date Type Department Care Team (Late st Contact Info) Description 06/01/2025 [facility]ill [facility] [address] [facility] [address] [place] [address] Octavia Herrera, MARIA GUADALUPE [address] [facility] [address] [place] [address] 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 Patient unable to answer [...] more drinks on one occasion? Never 05/29/2025 [facility] - Occupational [...] drink first t kennedy in the morning (EYE-DETECTIVE BOWLING ALLEY) to steady your nerves or to get [...] Appointment [facility] Interventional Radiology [address] [place] [address] 08/01/2025 11:00 AM EDT Appointment [facility] Inter[facility] Radiology [address] [place] [address] 08/08/2025 11:15 AM EDT Appointment [facility]iology [address] [place] [address] 08/08/2025 12:15 PM EDT Appointment [facility] Inter[facility] Radiology [address] [place] [address] 2025 10:00 AM EDT Appointment [facility] Rad[facility] [address] [place] [address] 2025 11:00 AM EDT Appointment [facility] Inter[facility] Radiology [address] [place] [address] 08/20/2025 9:30 AM EDT Clinical Support [facility] [place] [address] [place] [address] 08/20/2025 10:30 AM EDT Social Work [facility] [place] [address] [place] [address] [place] [address] 08/20/2025 11:00 AM EDT Office Visit [facility] [place] [address] [place] [address] Jude Duque MD [address] [place] [address] documented as of this encounter Visit Diagnoses [...] documented as of this encounter Care Teams Astrochemist Relationship Specialty Start Date End Date Alvarez Zimmer MD [address] [place] [address] PCP - General Family Medicine 12/07/24 Lea Fernando [address] [facility] [address] [place] [address] Supervisor Blood Donor Recruiters Endocrinology 08/29/24 Rachel Ray APRN [address] [facility] [address] [place] [address] Nurse Practitioner Gastroenterology 09/24/24 Tamera Isabel LPN VALUE-BASED TRANSFORMATION PROGRAM Licensed Practical Nurse 05/29/25 documented as of this encounter
--- OUTSIDE RECORDS SUMMARY | 2025-07-31 17:33 | XMS_ITS | Encounter Summary ---
Author Organization Healthcare Address [address] [place] [address] Care Team Providers Care Soldering Machine Feeder Name Role Phone Lea Fernando Unavailable [phone] Rachel Ray ORTHODONTIST Unavailable [phone] Alvarez Zimmer MD Primary Care Provider [phone] Tamera Isabel LPN Unavailable UnavailAlina Bedolla RN Unavailable Unavailab le Encounter Details Date Type Department Care Team (Late st Contact Info) Description 05/08/2025 Results Follow-Up [facility] [address] [facility] [address] [place] [address] Wilma Arana, RN [facility] LIVER [id number] [address] [place] [address] Social History Tobacco Use Types [...] often do you attend chur ch or rastafari services? Patient unable to answer 01/10/2025 Do you belong to any clubs o r organizations such as shinto groups, [employer], [employer] or athletic groups, or school groups? Patient [...] week 05/29/2025 How often do you attend [facility] ch or rastafari services? Never 05/29/2025 Do you belong to any clubs o r organizations such as shinto groups, unions, [employer] or athletic groups, or school groups? No [...] more drinks on one occasion? Never 06/25/2025 [facility] ional [...] drink first t kennedy in the morning (EYE-REPLANTER) to steady your nerves or to get rid of a hangover? 0 06/25/2025 CAGE Questionnaire Score 0 025 Utilities Answer Date Recorded In the past 12 months has th [employer] electric, gas, oil, or water company threatened [...] 06/25/2025 12:50 PM EDT Henny Comer * Over the past 2 weeks, how [...] 07/08/2025 8:00 PM EDT Felecia Ruiz * If you checked off any problems [...] A Interventional Radiology [address] [place] [address] 08/01/2025 11:00 AM EDT Appointment [facility] Interventional Radiology [address] [place] [address] 08/08/2025 11:15 AM EDT Appointment [facility] Inter[facility] Radiology [address] [place] [address] 08/08/2025 12:15 PM EDT Appointment [facility] Inter[facility] Radiology [address] [place] [address] 2025 10:00 AM EDT Appointment [facility] Inter[facility] Radiology [address] [place] [address] 2025 11:00 AM EDT Appointment [facility] Inter[facility] Radiology [address] [place] [address] 08/20/2025 9:30 AM EDT Clinical Support [facility] [place] [address] [facility] [address] [place] [address] 08/20/2025 10:30 AM EDT Social Work [facility] [address] [facility] [address] [place] [address] Deysi Ortega [place], [place] [address] 08/20/2025 11:00 AM EDT Office Visit [facility] [address] [address] Jude Duque MD [address] [facility] [address] [place] [address] documented as of this encounter [...] documented as of this encounter Care Teams Soldering Machine Feeder Relationship Specialty Start Date End Date Alvarez Zimmer MD [address] [place] [address] PCP - General Family Medicine 12/07/24 Lea Fernando [address] [facility] [address] [place] [address] Animal Husbandry Manager Endocrinology 08/29/24 Rachel Ray APRN [address] [facility] [address] [place] [address] Nurse Practitioner Gastroenterology 09/24/24 Tamera Isabel, FAMILY PRESERVATION OFFICER VALUE-BASED TRANSFORMATION PROGRAM Licensed Practical Nurse 05/29/25 Alina Lovett, RN CH-VASCULAR & INTERVENTIONAL RADIOLOGY Registered Nurse 06/26/25 06/26/25 documented as of this encounter
--- OUTSIDE RECORDS SUMMARY | 2025-07-31 17:33 | XMS_ITS | Encounter Summary ---
Author Organization Healthcare Address [address] [place] [address] Care Team Providers Care Rn Acute Dialysis Name Role Phone Lea Fernando Unavailable [phone] Rachel Ray SEMIAUTOMATIC STITCHER OPERATOR Unavailable [phone] Alvarez Zimmer MD Primary Care Provider [phone] Tamera Isabel LPN Unavailable Unavailabl Alina Jennings RN Unavailable Unavailab le Encounter Details Date Type Department Care Team (Late st Contact Info) Description 06/23/2025 Orders Only External Location [address] [place] [address] Kandice Maldonado, SEMIAUTOMATIC STITCHER OPERATOR [address] [place] [address] Social History Tobacco Use Types [...] often do you attend chur ch or synagogue services? Patient unable to answer 01/10/2025 Do you belong to any clubs o r organizations such as sikhism groups, [employer], [employer] or athletic groups, or school groups? Patient [...] week 05/29/2025 How often do you attend [facility] ch or synagogue services? Never 05/29/2025 Do you belong to any clubs o r organizations such as sikhism groups, unions, [employer] Happenternal or athletic groups, or school groups? No [...] more drinks on one occasion? Never 06/25/2025 [facility] - Occupational Stress Questionnaire Answer Date [...] drink first t kennedy in the morning (EYE-BINDERY MANAGER) to steady your nerves or to get rid of a hangover? 0 06/25/2025 CAGE Questionnaire Score 0 025 Utilities Answer Date Recorded In the past 12 months has th [employer] electric, gas, oil, or water company threatened [...] Appointment [facility] Interventional Radiology [address] [place] [address] 08/01/2025 11:00 AM EDT Appointment [facility] Interventional Radiology [address] [place] [address] 08/08/2025 11:15 AM EDT Appointment [facility] Interventional Radiology [address] [place] [address] 08/08/2025 12:15 PM EDT Appointment [facility] Interventional Radiology [address] [place] [address] 2025 10:00 AM EDT Appointment [facility] Interventional Radiology [address] [place] [address] 2025 11:00 AM EDT Appointment [facility] Interventional Radiology [address] [place] [address] 08/20/2025 9:30 AM EDT Clinical Support [facility] [place] [address] [place] [address] 08/20/2025 10:30 AM EDT Social Work [facility] [place] [address] [place] [address] [place] [address] 08/20/2025 11:00 AM EDT Office Visit [facility] [place] [address] [place] [address] Jude Duque MD [address] [place] [address] documented as of this encounter Procedures Procedure Name Priority Date/Time Associated Diagnosis Comments XR OUTSIDE IMAGES 06/23/2025 5:56 PM EDT documented in this encounter Results * XR OUTSIDE IMAGES (06/23/2025 5:56 PM EDT) Anatomical Region Laterality Modality Radiographic [place] ging 06/23/2025 5:56 PM EDT Kandice Maldonado SEMIAUTOMATIC STITCHER OPERATOR IMG XR PROCEDURES Final Res ult documented [...] documented as of this encounter Care Teams Rn Acute Dialysis Relationship Specialty Start Date End Date Alvarez Zimmer MD [address] [place] [address] PCP - General Family Medicine 12/07/24 Lea Fernando [address] [place] [address] Shelf Filler Endocrinology 08/29/24 Rachel Ray, SEMIAUTOMATIC STITCHER OPERATOR [address] [place] [address] Nurse Practitioner Gastroenterology 09/24/24 Tamera Isabel LPN VALUE-BASED TRANSFORMATION PROGRAM Licensed Practical Nurse 05/29/25 Alina Lovett, RN CH-VASCULAR & INTERVENTIONAL RADIOLOGY Registered Nurse 06/26/25 06/26/25 documented as of this encounter
--- OUTSIDE RECORDS SUMMARY | 2025-07-31 17:33 | XMS_ITS | Encounter Summary ---
Author Organization [facility] Address [address] [place] [address] Care Team Providers Care Manager Mall Name Role Phone Lea Fernando Unavailable [phone] Rachel Ray TELEMETRY TECH Unavailable [phone] Alvarez Zimmer MD Primary Care Provider [phone] Tamera Isabel MANAGER DATA Unavailable UnavailAlina Bedolla RN Unavailable Unavailab Monique Che MANAGER DATA Unavailable Unavailable Reason for Visit * Reason Onset Date Comments Med Refill 04/23/2025 Encounter Details Date Type Department Care Team (Late st Contact Info) Description 04/23/2025 Refill [facility] [address] [place] [address] Alvarez Zimmer MD [address] [place] [address] Altered mental status, unspecified [...] you attend [facility] or jew services? Patient unable to answer [...] Recorded Patient Health Questionnaire-2 Score 2 04/10/2025 [facility] - Occupational [...] drink first t kennedy in the morning (EYE-MOTION PICTURE PROJECTIONIST) to steady your nerves or to get rid of a hangover? 0 10/22/2024 CAGE Questionnaire Score 0 024 Utilities Answer Date Recorded In the past 12 months has th e [employer] gas, oil, or water [employer] threatened to shut off services in your [...] of zinc sulfate 220 mg sent to [facility] 03/01/2025. Refills remain available at the pharmacy. 90 day supply plus 1 refill of ciprofloxacin 500 mg sent to [facility] 03/01/2025. 1 refill remains available at the pharmacy. 30 day supply plus 3 refills of lactulose 10 gm/15 ml sent to [facility] 02/14/2025. Refills remain available at the pharmacy. documented in this encounter Plan of Treatment Upcoming Encounters Date Type Department Care Team (Late st Contact Info) Description 08/01/2025 10:00 AM EDT Appointment [facility] Interventional Radiology [address] [place] [address] 08/01/2025 11:00 AM EDT Appointment [facility] Interventional Radiology [address] [place] [address] 08/08/2025 11:15 AM EDT Appointment [facility] Interventional Radiology [address] [place] [address] 08/08/2025 12:15 PM EDT Appointment [facility] Interventional Radiology [address] [address] 2025 10:00 AM EDT Appointment [facility] Interventional Radiology [address] [address] 2025 11:00 AM EDT Appointment [facility] Interventional Radiology [address] [place] [address] 08/20/2025 9:30 AM EDT Clinical Support [facility] [address] [place] [address] 08/20/2025 10:30 AM EDT Social Work [facility] [place] [address] [place] [address] [place] [address] 08/20/2025 11:00 AM EDT Office Visit [facility] [place] [address] [place] [address] Jude Duque MD [address] [place] [address] documented as of this encounter Visit Diagnoses [...] as of this encounter Care Teams Manager Mall Relationship Specialty Start Date End Date Alvarez Zimmer MD [address] [place] [address] PCP - General Family Medicine 12/07/24 Lea Fernando [address] [facility] [address] [place] [address] Condemnation Engineer Endocrinology 08/29/24 Rachel Ray, TELEMETRY TECH [address] [facility] [address] [place] [address] Nurse Practitioner Gastroenterology 09/24/24 Tamera Isabel LPN VALUE-BASED TRANSFORMATION PROGRAM Licensed Practical Nurse 05/29/25 Alina Lovett, RN CH-VASCULAR & INTERVENTIONAL RADIOLOGY Registered Nurse 06/26/25 06/26/25 Monique Tapia LPN VALUE-BASED [place] [address] TCM Nurse 07/10/25 documented as of this encounter
--- OUTSIDE RECORDS SUMMARY | 2025-07-31 17:33 | XMS_ITS | Encounter Summary ---
Author Organization [facility] Address [address] [place] [address] Care Team Providers Care Art Coordinator Name Role Phone Lea Fernando Unavailable [phone] Rachel Ray 1ST PRESSMAN [employer] Unavailable [phone] Alvarez Zimmer MD Primary Care Provider [phone] Tamera Isabel SLOT ROUTER Unavailable Unavailabl e Reason for Visit * Reason Onset Date Comments Med Refill 06/01/2025 Encounter Details Date Type Department Care Team (Late st Contact Info) Description 06/01/2025 Refill [facility] [address] [facility], [address] [place] [address] Ar Dominique MD [address] [facility] [address] [place] [address] Chronic kidney disease, stage 3b [...] you attend [facility] or roman catholic services? Patient unable to answer 01/10/2025 Do you belong to any clubs o r organizations such as hinduism groups, unions, fraternal or athletic groups, or [...] any clubs o r organizations such as hinduism groups, unions, fraternal or athletic groups, or [...] on one occasion? Never 06/05/2025 [facility] Occupat ional Health - [...] first t kennedy in the morning (EYE-DESIGN SUPERVISOR) to steady your nerves or to [...] Wish to be (Past 1 Month) No 06/05/2025 2:53 PM EDT Anisha Marino 2. Non-Specific Active Suici lzi Thoughts (Past 1 Month) No 06/05/2025 2:53 [...] Appointment [facility] Interventional Radiology [address] [place] [address] 08/01/2025 11:00 AM EDT Appointment [facility] Interventional Radiology [address] [place] [address] 08/08/2025 11:15 AM EDT Appointment [facility] Interventional Radiology [address] [place] [address] 08/08/2025 12:15 PM EDT Appointment [facility] Interventional Radiology [address] [place] [address] 2025 10:00 AM EDT Appointment [facility] Interventional Radiology [address] [place] [address] 2025 11:00 AM EDT Appointment [facility] Interventional Radiology [address] [place] [address] 08/20/2025 9:30 AM EDT Clinical Support [facility] [place] [address] [place] [address] 08/20/2025 10:30 AM EDT Social Work [facility] [place] [address] [place] [address] Deysi Ortega [place], [place] [id number] 08/20/2025 11:00 AM EDT Office Visit [facility] [place] [address] [place] [address] Jude Duque MD [address] [place] [address] documented as of this encounter Visit Diagnoses [...] documented as of this encounter Care Teams Art Coordinator Relationship Specialty Start Date End Date Alvarez Zimmer MD [address] [place] [address] PCP - General Family Medicine 12/07/24 Lea Fernando [address] [place] [address] Extension Work Director Endocrinology 08/29/24 Rachel Ray APRN [address] [place] [address] Nurse Practitioner Gastroenterology 09/24/24 Tamera Isabel LPN VALUE-BASED TRANSFORMATION PROGRAM Licensed Practical Nurse 05/29/25 documented as of this encounter
--- OUTSIDE RECORDS SUMMARY | 2025-07-31 17:33 | XMS_ITS | Encounter Summary ---
Author Organization Healthcare Address [address] [place] [address] Care Team Providers Care Printing Equipment Mechanic Name Role Phone Wilma Howard Ambar ROUSEN Primary Care Provider [phone] Lea Fernando Unavailable [phone] Rachel Ray BLOWER BLAST FURNACE Unavailable [phone] Taina Lyles BLOWER BLAST FURNACE Primary Care Provider Monique Tapia LPN Unavailable Unavailable Alvarez Zimmer MD Primary Care Provider [phone] Shaniqua Trevino MARINE FARMER Unavailable Unavailable Tamera Isabel LPN Unavailable UnavailAlina Bedolla RN Unavailable Unavailab Monique Che LPN Unavailable Unavailable Encounter Details Date Type Department Care Team (Late st Contact Info) Description 07/17/2024 Orders Only External Location [address] [place] [id number] Provider, External Social History Tobacco Use Types [...] [facility] Interventional Radiology [address] [place] [address] 08/01/2025 11:00 AM EDT Appointment [facility] Radiology [address] [place] [address] 08/08/2025 11:15 AM EDT Appointment [facility] [address] [place] [address] 08/08/2025 12:15 PM EDT Appointment [facility] [address] [place] [address] 2025 10:00 AM EDT Appointment [facility] [address] [place] [address] 2025 11:00 AM EDT Appointment [facility] Inter[facility] Radiology [address] [place] [address] 08/20/2025 9:30 AM EDT Clinical Support [facility] [place] [address] [place] [address] 08/20/2025 10:30 AM EDT Social Work [facility] [place] [address] [place] [address] [place] [address] 08/20/2025 11:00 AM EDT Office Visit [facility] [place] [address] [place] [address] Jude Duque MD [address] [place] [address] documented as of this encounter Procedures Procedure [...] as of this encounter Care Teams Printing Equipment Mechanic Relationship Specialty Start Date End Date Wilma Howard APRN [address] [place] [address] [place] [address] PCP - General 04/03/21 09/30/24 Taina Lyles APRN [address] [place] [address] [place] [address] PCP - General 10/01/24 12/06/24 Alvarez Zimmer MD [address] [place] [address] PCP - General Family Medicine 12/07/24 Lea [facility] [address] [address] [address] Electronic Lab Technician Endocrinology 08/29/24 Rachel Ray, BLOWER BLAST FURNACE [address] [place] [address] Nurse Practitioner Gastroenterology 09/24/24 Monique Tapia LPN VALUE-BASED [place] [address] TCM Nurse 11/28/24 12/28/24 Shaniqua Trevino LPN TCM Nurse 01/15/25 02/14/25 Tamera Isabel LPN VALUE-BASED TRANSFORMATION PROGRAM Licensed Practical Nurse 05/29/25 Alina Lovett, RN CH-VASCULAR & INTERVENTIONAL RADIOLOGY Registered Nurse 06/26/25 06/26/25 Monique Tapia LPN VALUE-BASED [place] [address] TCM Nurse 07/10/25 documented as of this encounter
--- OUTSIDE RECORDS SUMMARY | 2025-07-31 17:33 | XMS_ITS | Encounter Summary ---
Author Organization [facility] Address [address] [place] [address] Care Team Providers Care Appliance Service Supervisor Name Role Phone Lea Fernando Unavailable [phone] Rachel Ray DIGITAL MEDIA INTERN Unavailable [phone] Alvarez Zimmer MD Primary Care Provider [phone] Tamera Isabel ROLL ON WORKER Unavailable UnavailAlina Bedolla RN Unavailable Unavailab Monique Che ROLL ON WORKER Unavailable Unavailable Reason for Visit * Reason Onset Date Comments Med Refill 04/19/2025 Encounter Details Date Type Department Care Team (Late st Contact Info) Description 04/19/2025 Refill [facility] Medicine [address] [place] [address] Alvarez Zimmer MD [address] [place] [address] Social History Tobacco Use Types [...] How often do you attend chur or temple services? Patient unable to answer [...] Recorded Patient Health Questionnaire-2 Score 2 04/10/2025 [facility] - Occupational [...] drink first t kennedy in the morning (EYE-MINE SURVEYOR) to steady your nerves or to get rid of a hangover? 0 10/22/2024 CAGE Questionnaire Score 0 024 Utilities Answer Date Recorded In the past 12 months has e [employer], gas, oil, or water [employer] threatened to shut off services in your [...] Appointment [facility] Interventional Radiology [address] [place] [address] 08/01/2025 11:00 AM EDT Appointment [facility] Interventional Radiology [address] [place] [address] 08/08/2025 11:15 AM EDT Appointment [facility] Interventional Radiology [address] [place] [address] 08/08/2025 12:15 PM EDT Appointment [facility] Interventional Radiology [address] [place] [address] 2025 10:00 AM EDT Appointment [facility] Interventional Radiology [address] [place] [address] 2025 11:00 AM EDT Appointment [facility] Interventional Radiology [address] [place] [address] 08/20/2025 9:30 AM EDT Clinical Support [facility] [place] [address] [place] [address] 08/20/2025 10:30 AM EDT Social Work [facility] [place] [address] [place] [address] Deysi Ortega [place], [place] [address] 08/20/2025 11:00 AM EDT Office Visit [facility] [place] [address] [place] [address] Jude Duque MD [address] [place] [address] documented as of this encounter Visit Diagnoses [...] documented as of this encounter Care Teams Appliance Service Supervisor Relationship Specialty Start Date End Date Alvarez Zimmer MD [address] [place] [address] PCP - General Family Medicine 12/07/24 Lea Fernando [address] [place] [address] Senior Mobile Solutions Architect Endocrinology 08/29/24 Rachel Ray, DIGITAL MEDIA INTERN [address] [place] [address] Nurse Practitioner Gastroenterology 09/24/24 Tamera Isabel LPN VALUE-BASED TRANSFORMATION PROGRAM Licensed Practical Nurse 05/29/25 Alina Lovett, RN CH-VASCULAR & INTERVENTIONAL RADIOLOGY Registered Nurse 06/26/25 06/26/25 Monique Tapia LPN VALUE-BASED [place] [address] TCM Nurse 07/10/25 documented as of this encounter
--- OUTSIDE RECORDS SUMMARY | 2025-07-31 17:33 | XMS_ITS | Clinical Summary ---
Author Organization [facility] Address [address] [place] [address], [address] [place] [address] Care Team Providers Care Director Of Restaurant Operations Name Role Phone System, Referring Not In [...] (before breakfast) Active Multiple Vitamins-Minera ls (THERAPEUTIC MULTIVITAMIN-MD NERALS) tablet Take 1 tablet by mouth daily Active [place]-3 Fatty Acids (FISH OIL) 1000 MG CAPS [...] of Treatment Not on file Care Teams Director Of Restaurant Operations Relationship Specialty Start Date End Date System, Referring Not In PCP - General 06/30/16
--- OUTSIDE RECORDS SUMMARY | 2025-07-31 17:33 | XMS_ITS | Encounter Summary ---
Author Organization Healthcare Address [address] [place] [address] Care Team Providers Care Music Professionals Name Role Phone Wilma Howard Ambar ROUSEN Primary Care Provider [phone] Lea Fernando Unavailable [phone] Rachel Ray HOME SERVICE CONSULTANT Unavailable [phone] Taina Lyles HOME SERVICE CONSULTANT Primary Care Provider [phone] Monique Tapia LPN Unavailable Unavailable Alvarez Zimmer MD Primary Care Provider [phone] Shaniqua Trevino ART PSYCHOTHERAPIST OR THERAPIST Unavailable Unavailable Tamera Isabel LPN Unavailable UnavailAlina Bedolla RN Unavailable Unavailab Monique Che LPN Unavailable Unavailable Encounter Details Date Type Department Care Team (Late st Contact Info) Description 02/02/2024 Orders Only External Location [address] [place] [address] Provider, External Social History Tobacco Use Types [...] [facility] A Interventional Radiology [address] [place] [address] 08/01/2025 11:00 AM EDT Appointment [facility] Interventional Radiology [address] [place] [address] 08/08/2025 11:15 AM EDT Appointment [facility] Interventional Radiology [address] [place] [address] 08/08/2025 12:15 PM EDT Appointment [facility] Interventional Radiology [address] [place] [address] 2025 10:00 AM EDT Appointment [facility] Interventional Radiology [address] [place] [address] 2025 11:00 AM EDT Appointment [facility] Interventional Radiology [address] [place] [address] 08/20/2025 9:30 AM EDT Clinical Support [facility] [place] [address] [place] [address] 08/20/2025 10:30 AM EDT Social Work [facility] [place] [address] [place] [address] [place] [address] 08/20/2025 11:00 AM EDT Office Visit [facility] [place] [address] [place] [address] Jude Duque MD [address] [place] [address] documented as of this encounter Procedures Procedure [...] documented as of this encounter Care Teams Music Professionals Relationship Specialty Start Date End Date Wilma Howard APRN [address] [place] [address] [place] [address] PCP - General 04/03/21 09/30/24 Taina Lyles APRN [address] [place] [address] [place] [address] PCP - General 10/01/24 12/06/24 Alvarez Zimmer MD [address] [place] [id number] PCP - General Family Medicine 12/07/24 Lea Fernando [facility] [address] [address] Journeyman Electrician Endocrinology 08/29/24 Rachel Ray, HOME SERVICE CONSULTANT [address] [place] [address] Nurse Practitioner Gastroenterology 09/24/24 Monique Tapia LPN VALUE-BASED [place] [address] TCM Nurse 11/28/24 12/28/24 Shaniqua Trevino LPN TCM Nurse 01/15/25 02/14/25 Tamera Isabel LPN VALUE-BASED TRANSFORMATION PROGRAM Licensed Practical Nurse 05/29/25 Alina Lovett, RN CH-VASCULAR & INTERVENTIONAL RADIOLOGY Registered Nurse 06/26/25 06/26/25 Monique Tapia LPN VALUE-BASED [place] [address] TCM Nurse 07/10/25 documented as of this encounter
--- OUTSIDE RECORDS SUMMARY | 2025-07-31 17:33 | XMS_ITS | Encounter Summary ---
Author Organization Healthcare Address [address] [place] [address] Care Team Providers Care Wet Sander Name Role Phone Lea Fernando Unavailable [phone] Rachel Ray BUSINESS PROCESS MODELER Unavailable [phone] Alvarez Zimmer MD Primary Care Provider [phone] Tamera Isabel LPN Unavailable Unavailabl Alina Jennings RN Unavailable Unavailab le Encounter Details Date Type Department Care Team (Late st Contact Info) Description 06/23/2025 Orders Only External Location [address] [place] [address] Kandice Maldonado, BUSINESS PROCESS MODELER [address] [place] [address] Social History Tobacco Use Types [...] you attend chur ch or latter-day services? Patient unable to answer 01/10/2025 Do you belong to any clubs o r organizations such as buddhism groups, [employer], [employer] or athletic groups, or school groups? Patient [...] week 05/29/2025 How often do you attend [facility] ch or latter-day services? Never 05/29/2025 Do you belong to any clubs o r organizations such as buddhism groups, unions, [employer] or athletic groups, or school groups? No [...] more drinks on one occasion? Never 06/25/2025 [facility] - Occupational Stress [...] drink first t kennedy in the morning (EYE-UTILITY ARBORIST) to steady your nerves or to get rid of a hangover? 0 06/25/2025 CAGE Questionnaire Score 0 025 Utilities Answer Date Recorded In the past 12 months has th inTarvo electric, gas, oil, or water company threatened [...] Appointment [facility] Interventional Radiology [address] [place] [address] 08/01/2025 11:00 AM EDT Appointment [facility] Interventional Radiology [address] [place] [address] 08/08/2025 11:15 AM EDT Appointment [facility] Interventional Radiology [address] [place] [address] 08/08/2025 12:15 PM EDT Appointment [facility] Interventional Radiology [address] [place] [address] 2025 10:00 AM EDT Appointment [facility] Interventional Radiology [address] [place] [address] 2025 11:00 AM EDT Appointment [facility] Interventional Radiology [address] [place] [address] 08/20/2025 9:30 AM EDT Clinical Support [facility] [place] [address] [place] [address] 08/20/2025 10:30 AM EDT Social Work [facility] [place] [address] [place] [address] [place] [address] 08/20/2025 11:00 AM EDT Office Visit [facility] [place] [address] [place] [address] Jude Duque MD [address] [place] [address] documented as of this encounter Procedures Procedure Name Priority Date/Time Associated Diagnosis Comments US OUTSIDE IMAGES 06/23/2025 5:29 PM EDT documented in this encounter Results * US OUTSIDE IMAGES (06/23/2025 5:29 PM EDT) Anatomical Region Laterality Modality Ultrasound 06/23/2025 5:29 PM EDT us Kandice Maldonado BUSINESS PROCESS MODELER IMG US PROCEDURES Final Res ult documented [...] documented as of this encounter Care Teams Wet Sander Relationship Specialty Start Date End Date Alvarez Zimmer MD [address] [place] [address] PCP - General Family Medicine 12/07/24 Lea Fernando [address] [facility] [address] [place] [address] Morphologist Endocrinology 08/29/24 Rachel Ray, BUSINESS PROCESS MODELER [address] [place] [address] Nurse Practitioner Gastroenterology 09/24/24 Tamera Isabel, PATIENT CARE REPRESENTATIVE VALUE-BASED TRANSFORMATION PROGRAM Licensed Practical Nurse 05/29/25 Alina Lovett, RN CH-VASCULAR & INTERVENTIONAL RADIOLOGY Registered Nurse 06/26/25 06/26/25 documented as of this encounter
--- OUTSIDE RECORDS SUMMARY | 2025-07-31 17:33 | XMS_ITS | Encounter Summary ---
Author Organization Healthcare Address [address] [place] [address] Care Team Providers Care Planning Consultant Name Role Phone Wilma Howard Ambar ROUSEN Primary Care Provider [phone] Lea Fernando Unavailable [phone] Rachel Ray CEMENT CAR DUMPER Unavailable [phone] Taina Lyles CEMENT CAR DUMPER Primary Care Provider [phone] Monique Tapia LPN Unavailable Unavailable Alvarez Zimmer MD Primary Care Provider [phone] Shaniqua Trevino PHARMACY CLINICAL COORDINATOR Unavailable Unavailable Tamera Isabel LPN Unavailable UnavailAlina Bedolla RN Unavailable Unavailab Monique Che LPN Unavailable Unavailable Encounter Details Date Type Department Care Team (Late st Contact Info) Description 01/18/2024 Orders Only External Location [address] [place] [address] Provider, External Social History Tobacco Use Types [...] P[facility] A Interventional Radiology [address] [place] [address] 08/01/2025 11:00 AM EDT Appointment [facility] Interventional Radiology [address] [place] [address] 08/08/2025 11:15 AM EDT Appointment [facility] Interventional Radiology [address] [place] [address] 08/08/2025 12:15 PM EDT Appointment [facility] Interventional Radiology [address] [place] [address] 2025 10:00 AM EDT Appointment [facility] Interventional Radiology [address] [place] [address] 2025 11:00 AM EDT Appointment [facility] Interventional Radiology [address] [place] [address] 08/20/2025 9:30 AM EDT Clinical Support [facility] [place] [address] [place] [address] 08/20/2025 10:30 AM EDT Social Work [facility] [place] [address] [place] [address] [place] [address] 08/20/2025 11:00 AM EDT Office Visit [facility] [place] [address] [place] [address] Jude Duque MD [address] [place] [address] documented as of this encounter Procedures Procedure [...] documented as of this encounter Care Teams Planning Consultant Relationship Specialty Start Date End Date Wilma Howard APRN [address] [place] [address] [place] [address] PCP - General 04/03/21 09/30/24 Taina Lyles APRN [address] [place] [address] [place] [address] PCP - General 10/01/24 12/06/24 Alvarez Zimmer MD [address] [place] [phone] PCP - General Family Medicine 12/07/24 Lea Fernando [address] [phone] Video Software Engineer Endocrinology 08/29/24 Rachel Ray, CEMENT CAR DUMPER [address] [facility] [address] [place] [address] Nurse Practitioner Gastroenterology 09/24/24 Monique Tapia LPN VALUE-BASED [place] [address] TCM Nurse 11/28/24 12/28/24 Shaniqua Trevino LPN TCM Nurse 01/15/25 02/14/25 Tamera Isabel LPN VALUE-BASED TRANSFORMATION PROGRAM Licensed Practical Nurse 05/29/25 Alina Lovett, RN CH-VASCULAR & INTERVENTIONAL RADIOLOGY Registered Nurse 06/26/25 06/26/25 Monique Tapia LPN VALUE-BASED [place] [address] TCM Nurse 07/10/25 documented as of this encounter
--- OUTSIDE RECORDS SUMMARY | 2025-07-31 17:33 | XMS_ITS | Encounter Summary ---
Author Organization Healthcare Address [address] [place] [address] Care Team Providers Care Grappler Name Role Phone Wilma Howard Ambar ROUSEN Primary Care Provider [phone] Lea Fernando Unavailable [phone] Rachel Ray CHRISTIAN SCIENCE HEALER Unavailable [phone] Taina Lyles CHRISTIAN SCIENCE HEALER Primary Care Provider [phone] Monique Tapia LPN Unavailable Unavailable Alvarez Zimmer MD Primary Care Provider [phone] Shaniqua Trevino CYCLE REPAIRER Unavailable Unavailable Tamera Isabel LPN Unavailable UnavailAlina Bedolla RN Unavailable Unavailab Monique Che LPN Unavailable Unavailable Encounter Details Date Type Department Care Team (Late st Contact Info) Description 02/08/2024 Orders Only External Location [address] [place] [phone] Provider, External Social History Tobacco Use Types [...] PAV A Interventional Radiology [address] [place] [address] 08/01/2025 11:00 AM EDT Appointment [facility] Interventional Radiology [address] [place] [address] 08/08/2025 11:15 AM EDT Appointment [facility] Interventional Radiology [address] [place] [address] 08/08/2025 12:15 PM EDT Appointment [facility] Interventional Radiology [address] [place] [address] 2025 10:00 AM EDT Appointment [facility] Interventional Radiology [address] [place] [address] 2025 11:00 AM EDT Appointment [facility] Interventional Radiology [address] [place] [address] 08/20/2025 9:30 AM EDT Clinical Support [facility] [place] [address] [place] [address] 08/20/2025 10:30 [address] [facility] [place] [address] [place] [address] [place] [address] 08/20/2025 11:00 AM EDT Office Visit [facility] [place] [address] [place] [address] Jude Duque MD [address] [place] [address] documented as of this encounter Procedures Procedure [...] documented as of this encounter Care Teams Grappler Relationship Specialty Start Date End Date Wilma Howard APRN [address] [place] [address] [place] [address] PCP - General 04/03/21 09/30/24 Taina Lyles APRN [address] [place] [address] [place] [address] PCP - General 10/01/24 12/06/24 Alvarez Zimmer MD [address] [place] [phone] PCP - General Family Medicine 12/07/24 Lea Fernando [address] [address] [address] Atmospheric Physicist Endocrinology 08/29/24 Rachel Ray, CHRISTIAN SCIENCE HEALER [address] [place] [address] Nurse Practitioner Gastroenterology 09/24/24 Monique Tapia LPN VALUE-BASED [place] [address] TCM Nurse 11/28/24 12/28/24 Shaniqua Trevino LPN TCM Nurse 01/15/25 02/14/25 Tamera Isabel LPN VALUE-BASED TRANSFORMATION PROGRAM Licensed Practical Nurse 05/29/25 Alina Lovett, RN CH-VASCULAR & INTERVENTIONAL RADIOLOGY Registered Nurse 06/26/25 06/26/25 Monique Tapia LPN VALUE-BASED [place] [address] TCM Nurse 07/10/25 documented as of this encounter
--- OUTSIDE RECORDS SUMMARY | 2025-07-31 17:33 | XMS_ITS | Encounter Summary ---
Author Organization Healthcare Address [address] [place] [address] Care Team Providers Care Psychiatric Therapist Name Role Phone Wilma Howard Ambar ROUSEN Primary Care Provider [phone] Lea Fernando Unavailable [phone] Rachel Ray FRAME CARVER SPINDLE Unavailable [phone] Taina Lyles FRAME CARVER SPINDLE Primary Care Provider [phone] Monique Tapia LPN Unavailable Unavailable Alvarez Zimmer MD Primary Care Provider [phone] Shaniqua Trevino LABORATORY ANIMAL CARETAKER Unavailable Unavailable Tamera Isabel LPN Unavailable UnavailAlina Bedolla RN Unavailable Unavailab Monique Che LPN Unavailable Unavailable Encounter Details Date Type Department Care Team (Late st Contact Info) Description 02/02/2024 Orders Only External Location [address] [place] [phone] Provider, External Social History Tobacco Use Types [...] PAV A Interventional Radiology [address] [place] [address] 08/01/2025 11:00 AM EDT Appointment [facility] Interventional Radiology [address] [place] [address] 08/08/2025 11:15 AM EDT Appointment [facility] Interventional Radiology [address] [place] [address] 08/08/2025 12:15 PM EDT Appointment [facility] Interventional Radiology [address] [place] [address] 2025 10:00 AM EDT Appointment [facility] Interventional Radiology [address] [place] [address] 2025 11:00 AM EDT Appointment [facility] Interventional Radiology [address] [place] [address] 08/20/2025 9:30 AM EDT Clinical Support [facility] [place] [address] [place] [address] 08/20/2025 10:30 AM EDT Social Work [facility] [place] [address] [place] [address] [place] [address] 08/20/2025 11:00 AM EDT Office Visit [facility] [place] [address] [place] [address] Jude Duque MD [address] [place] [address] documented as of this encounter Procedures Procedure [...] documented as of this encounter Care Teams Psychiatric Therapist Relationship Specialty Start Date End Date Wilma Howard APRN [address] [place] [address] [place] [address] PCP - General 04/03/21 09/30/24 Taina Lyles APRN [address] [place] [address] [place] [address] PCP - General 10/01/24 12/06/24 Alvarez Zimmer MD [address] [place] [phone] PCP - General Family Medicine 12/07/24 Lea Fernando [facility] [address] Credit Coordinator Endocrinology 08/29/24 Rachel Ray, FRAME CARVER SPINDLE [address] [place] [address] Nurse Practitioner Gastroenterology 09/24/24 Monique Tapia LPN VALUE-[place] [address] TCM Nurse 11/28/24 12/28/24 Shaniqua Trevino LPN TCM Nurse 01/15/25 02/14/25 Tamera Isabel LPN VALUE-BASED TRANSFORMATION PROGRAM Licensed Practical Nurse 05/29/25 Alina Lovett, RN CH-VASCULAR & INTERVENTIONAL RADIOLOGY Registered Nurse 06/26/25 06/26/25 Monique Tapia LPN VALUE-[place] [address] TCM Nurse 07/10/25 documented as of this encounter
--- OUTSIDE RECORDS SUMMARY | 2025-07-31 17:33 | XMS_ITS | Encounter Summary ---
Author Organization Healthcare Address [address] [place] [address] Care Team Providers Care Materials Development Engineer Name Role Phone Wilma Howard Ambar ROUSEN Primary Care Provider [phone] Lea Fernando Unavailable [phone] Rachel Ray AIR TRAFFIC CONTROL SUPERVISOR Unavailable [phone] Taina Lyles AIR TRAFFIC CONTROL SUPERVISOR Primary Care Provider Monique Tapia LPN Unavailable Unavailable Alvarez Zimmer MD Primary Care Provider [phone] Shaniqua Trevino MUTUEL CASHIER Unavailable Unavailable Tamera Isabel LPN Unavailable UnavailAlina Bedolla RN Unavailable Unavailab Monique Che LPN Unavailable Unavailable Encounter Details Date Type Department Care Team (Late st Contact Info) Description 07/14/2024 Orders Only External Location [address] [place] [phone] Provider, External Social History Tobacco Use Types [...] [facility] Inter[facility] Radiology [address] [place] [address] 08/01/2025 11:00 AM EDT Appointment [facility] [address] [place] [address] 08/08/2025 11:15 AM EDT Appointment [facility] [address] [place] [address] 08/08/2025 12:15 PM EDT Appointment [facility] [address] [place] [address] 2025 10:00 AM EDT Appointment [facility] [address] [place] [address] 2025 11:00 AM EDT Appointment [facility] Radiology [address] [place] [address] 08/20/2025 9:30 AM EDT Clinical Support [facility] [place] [address] [place] [address] 08/20/2025 10:30 AM EDT Social Work [facility] [place] [address] [place] [address] [place] [address] 08/20/2025 11:00 AM EDT Office Visit [facility] [place] [address] [place] [address] Jude Duque MD [address] [place] [address] documented as of this encounter Procedures Procedure [...] documented as of this encounter Care Teams Materials Development Engineer Relationship Specialty Start Date End Date Wilma Howard APRN [address] [place] [address] [place] [address] PCP - General 04/03/21 09/30/24 Taina Lyles APRN [address] [place] [address] [place] [address] PCP - General 10/01/24 12/06/24 Alvarez Zimmer MD [address] [place] [phone] PCP - General Family Medicine 12/07/24 Lea Fernando [facility] [address] Hand Cloth Cutter Endocrinology 08/29/24 Rachel Ray, AIR TRAFFIC CONTROL SUPERVISOR [address] [place] [address] Nurse Practitioner Gastroenterology 09/24/24 Monique Tapia LPN VALUE-BASED TRANSFORMATION [place] [address] TCM Nurse 11/28/24 12/28/24 Shaniqua Trevino LPN TCM Nurse 01/15/25 02/14/25 Tamera Isabel LPN VALUE-BASED TRANSFORMATION PROGRAM Licensed Practical Nurse 05/29/25 Alina Lovett, RN CH-VASCULAR & INTERVENTIONAL RADIOLOGY Registered Nurse 06/26/25 06/26/25 Monique Tapia LPN VALUE-BASED TRANSFORMATION [place] [address] TCM Nurse 07/10/25 documented as of this encounter
--- OUTSIDE RECORDS SUMMARY | 2025-07-31 17:33 | XMS_ITS | Encounter Summary ---
Author Organization [facility] Address [address] [place] [address] Care Team Providers Care Director Toxicology Name Role Phone Lea Fernando Unavailable [phone] Rachel Ray ASSISTED SALES REPRESENTATIVE Unavailable [phone] Alvarez Zimmer MD Primary Care Provider [phone] Tamera Isabel LPN Unavailable Unavailabl e Encounter [...] you attend chur ch or hoahaoism services? Patient unable to answer [...] drink first t kennedy in the morning (EYE-HEAD MVA REACTOR OPERATOR) to steady your nerves or to get rid of a hangover? 0 10/22/2024 CAGE Questionnaire Score 0 024 Utilities Answer Date Recorded In the past 12 months has th [employer] electric, gas, oil, or water company threatened [...] Appointment [facility] Interventional Radiology [address] [place] [address] 08/01/2025 11:00 AM EDT Appointment [facility] Inter[facility] Radiology [address] [place] [address] 08/08/2025 11:15 AM EDT Appointment [facility] Radiology [address] [place] [address] 08/08/2025 12:15 PM EDT Appointment [facility]iology [address] [place] [address] 2025 10:00 AM EDT Appointment [facility] Radiology [address] [place] [address] 2025 11:00 AM EDT Appointment [facility] Inter[facility] Radiology [address] [place] [address] 08/20/2025 9:30 AM EDT Clinical Support [facility] [place] [address] [place] [address] 08/20/2025 10:30 AM EDT Social Work [facility] [place] [address] [place] [address] [place] [address] 08/20/2025 11:00 AM EDT Office Visit [facility] [place] [address] [place] [address] Jude Duque MD [address] [facility] [address] [place] [address] documented as of this encounter [...] as of this encounter Care Teams Director Toxicology Relationship Specialty Start Date End Date Alvarez Zimmer MD [address] [place] [address] PCP - General Family Medicine 12/07/[address] [facility] [address] [place] [address] Turf Farmer Endocrinology 08/29/24 Rachel Ray APRN [address] [place] [address] Nurse Practitioner Gastroenterology 09/24/24 Tamera Isabel LPN VALUE-BASED TRANSFORMATION PROGRAM Licensed Practical Nurse 05/29/25 documented as of this encounter
--- OUTSIDE RECORDS SUMMARY | 2025-07-31 17:33 | XMS_ITS | Encounter Summary ---
Author Organization Healthcare Address [address] [place] [address] Care Team Providers Care Compliance Monitor Name Role Phone Johnna Howarddebi Villalta APRN Primary Care Provider [phone] Lea Fernando Unavailable [phone] Rachel Ray TELEPHONE MESSENGER Unavailable [phone] Taina Lyles TELEPHONE MESSENGER Primary Care Provider [phone] Monique Tapia LPN Unavailable Unavailable Alvarez Zimmer MD Primary Care Provider [phone] Shaniqua Trevino NUTRITION COUNSELOR Unavailable Unavailable Tamera Isabel LPN Unavailable UnavailAlina Bedolla RN Unavailable Unavailab Monique Che LPN Unavailable Unavailable Encounter Details Date Type Department Care Team (Late st Contact Info) Description 09/14/2024 Orders Only External Location [address] [place] [phone] Provider, External Social History Tobacco Use Types [...] in a fci (including now)? Yes 08/29/2024 Education Answer Date [...] Appointment [facility] Inter[facility] Radiology [address] [place] [address] 08/01/2025 11:00 AM EDT Appointment [facility] Inter[facility] Radiology [address] [place] [address] 08/08/2025 11:15 AM EDT Appointment [facility] Inter[facility] Radiology [address] [place] [address] 08/08/2025 12:15 PM EDT Appointment [facility] Interventional Radiology [address] [place] [address] 2025 10:00 AM EDT Appointment [facility] Interventional Radiology [address] [place] [address] 2025 11:00 AM EDT Appointment [facility] Interventional Radiology [address] [place] [address] 08/20/2025 9:30 AM EDT Clinical Support [facility] [place] [address] [place] [address] 08/20/2025 10:30 AM EDT Social Work [facility] [place] [address] [place] [address] [place] [address] 08/20/2025 11:00 AM EDT Office Visit [facility] [place] [address] [place] [address] Jude Duque MD [address] [facility] [address] [place] [address] documented as of this encounter Procedures Procedure [...] documented as of this encounter Care Teams Compliance Monitor Relationship Specialty Start Date End Date Wilma Howard, TELEPHONE MESSENGER [address] [place] [address] Dr [place], [place] [id number] PCP - General 04/03/21 09/30/24 Taina Lyles, TELEPHONE MESSENGER [address] [place] [address] [place] [address] PCP - General 10/01/24 12/06/24 Alvarez Zimmer MD [address] [place] [address] PCP - General Family Medicine 12/07/24 Lea Fernando [address] [place] [phone] Recreation Teacher Endocrinology 08/29/24 Rachel Ray, TELEPHONE MESSENGER [address] [place] [address] Nurse Practitioner Gastroenterology 09/24/24 Monique Tapia LPN VALUE-BASED [place] [address] TCM Nurse 11/28/24 12/28/24 Shaniqua Trevino LPN TCM Nurse 01/15/25 02/14/25 Tamera Isabel LPN VALUE-BASED TRANSFORMATION PROGRAM Licensed Practical Nurse 05/29/25 Alina Lovett, RN CH-VASCULAR & INTERVENTIONAL RADIOLOGY Registered Nurse 06/26/25 06/26/25 Monique Tapia, MG VALUE-BASED [place] [address] TCM Nurse 07/10/25 documented as of this encounter
--- OUTSIDE RECORDS SUMMARY | 2025-07-31 17:33 | XMS_ITS | Encounter Summary ---
Author Organization Healthcare Address [address] [place] [address] Care Team Providers Care Videographer Name Role Phone Wilma Howard Ambar ROUSEN Primary Care Provider [phone] Lae Fernando Unavailable [phone] Rachel Ray SOUNDING DEVICE OPERATOR Unavailable [phone] Taina Lyles SOUNDING DEVICE OPERATOR Primary Care Provider [phone] Monique Tapia LPN Unavailable Unavailable Alvarez Zimmer MD Primary Care Provider [phone] Shaniqua Trevino WOODWIND REEDS CUTTER Unavailable Unavailable Tamera Isabel LPN Unavailable UnavailAlina Bedolla RN Unavailable Unavailab Monique Che LPN Unavailable Unavailable Encounter Details Date Type Department Care Team (Late st Contact Info) Description 12/15/2023 Orders Only External Location [address] [place] [id number] Provider, External Social History Tobacco Use Types [...] [facility] Interventional Radiology [address] [place] [address] 08/01/2025 11:00 AM EDT Appointment [facility] Interventional Radiology [address] [place] [address] 08/08/2025 11:15 AM EDT Appointment [facility] Interventional Radiology [address] [place] [address] 08/08/2025 12:15 PM EDT Appointment [facility] Interventional Radiology [address] [place] [address] 2025 10:00 AM EDT Appointment [facility] Interventional Radiology [address] [place] [address] 2025 11:00 AM EDT Appointment [facility] Interventional Radiology [address] [place] [address] 08/20/2025 9:30 AM EDT Clinical Support [facility] [place] [address] [place] [address] 08/20/2025 10:30 AM EDT Social Work [facility] [place] [address] [place] [address] [place] [address] 08/20/2025 11:00 AM EDT Office Visit [facility] [place] [address] [place] [address] Jude Duque MD [address] [place] [address] documented as of this encounter Procedures Procedure [...] documented as of this encounter Care Teams Videographer Relationship Specialty Start Date End Date Wilma Howard APRN [address] [place] [address] [place] [address] PCP - General 04/03/21 09/30/24 Taina Lyles APRN [address] [place] [address] [place] [address] PCP - General 10/01/24 12/06/24 Alvarez Zimmer MD [address] [place] [address] PCP - General Family Medicine 12/07/24 Lea Fernando [address] [facility] [address] [place] [address] Insole And Heel Stiffener Endocrinology 08/29/24 Rachle Ray, SOUNDING DEVICE OPERATOR [address] [place] [address] Nurse Practitioner Gastroenterology 09/24/24 Monique Tapia LPN VALUE-BASED [place] [address] TCM Nurse 11/28/24 12/28/24 Shaniqua Trevino LPN TCM Nurse 01/15/25 02/14/25 Tamera Isabel LPN VALUE-BASED TRANSFORMATION PROGRAM Licensed Practical Nurse 05/29/25 Alina Lovett, RN CH-VASCULAR & INTERVENTIONAL RADIOLOGY Registered Nurse 06/26/25 06/26/25 Monique Tapia LPN VALUE-[place]ED [place] [address] TCM Nurse 07/10/25 documented as of this encounter
--- OUTSIDE RECORDS SUMMARY | 2025-07-31 17:34 | XMS_ITS | Encounter Summary ---
Author Organization Healthcare Address [address] [place] [address] Care Team Providers Care Spinning Frame Changer Name Role Phone Wilma Howard Ambar ROUSEN Primary Care Provider [phone] Lea Fernando Unavailable [phone] Rachel Ray FERN GATHERER Unavailable [phone] Taina Lyles FERN GATHERER Primary Care Provider [phone] Monique Tapia LPN Unavailable Unavailable Alvarez Zimmer MD Primary Care Provider [phone] IN THEATER ATTENDANT Unavailable Unavailable Tamera Isabel LPN Unavailable UnavailAlina Bedolla RN Unavailable Unavailab Monique Che LPN Unavailable Unavailable Encounter Details Date Type Department Care Team (Late st Contact Info) Description 02/26/2024 Orders Only External Location [address] [place] [phone] Provider, External Social History Tobacco Use Types [...] [facility] A Interventional Radiology [address] [place] [address] 08/01/2025 11:00 AM EDT Appointment [facility] Interventional Radiology [address] [place] [address] 08/08/2025 11:15 AM EDT Appointment [facility] Interventional Radiology [address] [place] [address] 08/08/2025 12:15 PM EDT Appointment [facility] Interventional Radiology [address] [place] [address] 2025 10:00 AM EDT Appointment [facility] Interventional Radiology [address] [place] [address] 2025 11:00 AM EDT Appointment [facility] Interventional Radiology [address] [place] [address] 08/20/2025 9:30 AM EDT Clinical Support [facility] [place] [address] [place] [address] 08/20/2025 10:30 AM EDT Social Work [facility] [place] [address] [place] [address] [place] [address] 08/20/2025 11:00 AM EDT Office Visit [facility] [place] [address] [place] [address] Jude Duque MD [address] [place] [address] documented as of this encounter Procedures Procedure [...] documented as of this encounter Care Teams Spinning Frame Changer Relationship Specialty Start Date End Date Wilma Howard APRN [address] [place] [address] [place] [address] PCP - General 04/03/21 09/30/24 Taina Lyles APRN [address] [place] [address] [place] [address] PCP - General 10/01/24 12/06/24 Alvarez Zimmer MD [address] [place] [phone] PCP - General Family Medicine 12/07/24 Lea Fernando [address] [facility] 125 [place] [address] Land Reclamation Specialist Endocrinology 08/29/24 Rachel Ray APRN [address] [place] [address] Nurse Practitioner Gastroenterology 09/24/24 Monique Tapia LPN VALUE-[place] [address] TCM Nurse 11/28/24 12/28/24 Shaniqua Trevino LPN TCM Nurse 01/15/25 02/14/25 Tamera Isabel LPN VALUE-BASED TRANSFORMATION PROGRAM Licensed Practical Nurse 05/29/25 Alina Lovett, RN CH-VASCULAR & INTERVENTIONAL RADIOLOGY Registered Nurse 06/26/25 06/26/25 Monique Tapia LPN VALUE-[place] [address] TCM Nurse 07/10/25 documented as of this encounter
--- OUTSIDE RECORDS SUMMARY | 2025-07-31 17:34 | XMS_ITS | Encounter Summary ---
Author Organization Healthcare Address [address] [place] [address] Care Team Providers Care Interventional Nurse Name Role Phone Wilma Howard Ambar ROUSEN Primary Care Provider [phone] Lea Fernando Unavailable [phone] Rachel Ray JET WORKER Unavailable [phone] Taina Lyles JET WORKER Primary Care Provider [phone] Monique Tapia LPN Unavailable Unavailable Alvarez Zimmer MD Primary Care Provider [phone] Shaniqua Trevino PRESSER HAND Unavailable Unavailable Tamera Isabel LPN Unavailable UnavailAlina Bedolla RN Unavailable Unavailab Monique Che LPN Unavailable Unavailable Encounter Details Date Type Department Care Team (Late st Contact Info) Description 05/23/2024 Orders Only External Location [address] [place] [phone] Provider, External Social History Tobacco Use Types [...] [facility] A Interventional Radiology [address] [place] [address] 08/01/2025 11:00 AM EDT Appointment [facility] Interventional Radiology [address] [place] [address] 08/08/2025 11:15 AM EDT Appointment [facility] Interventional Radiology [address] [place] [address] 08/08/2025 12:15 PM EDT Appointment [facility] Interventional Radiology [address] [place] [address] 2025 10:00 AM EDT Appointment [facility] Interventional Radiology [address] [place] [address] 2025 11:00 AM EDT Appointment [facility] Interventional Radiology [address] [place] [address] 08/20/2025 9:30 AM EDT Clinical Support [facility] [place] [address] [place] [address] 08/20/2025 10:30 AM EDT Social Work [facility] [place] [address] [place] [address] [place] [address] 08/20/2025 11:00 AM EDT Office Visit [facility] [place] [address] [place] [address] Jude Duque MD [address] [place] [address] documented as of this encounter Procedures Procedure [...] documented as of this encounter Care Teams Interventional Nurse Relationship Specialty Start Date End Date Wilma Howard APRN [address] [place] [address] [place] [address] PCP - General 04/03/21 09/30/24 Taina Lyles APRN [address] [place] [address] [place] [address] PCP - General 10/01/24 12/06/24 Alvarez Zimmer MD [address] [place] [phone] PCP - General Family Medicine 12/07/24 Lea [facility] [address] [phone] Fur Blowing Machine Operator Endocrinology 08/29/24 Rachel Ray, JET WORKER [address] [place] [address] Nurse Practitioner Gastroenterology 09/24/24 Monique Tapia LPN VALUE-BASED [place] [address] TCM Nurse 11/28/24 12/28/24 Shaniqua Trevino LPN TCM Nurse 01/15/25 02/14/25 Tamera Isabel LPN VALUE-BASED TRANSFORMATION PROGRAM Licensed Practical Nurse 05/29/25 Alina Lovett, RN CH-VASCULAR & INTERVENTIONAL RADIOLOGY Registered Nurse 06/26/25 06/26/25 Monique Tapia LPN VALUE-BASED [place] [address] TCM Nurse 07/10/25 documented as of this encounter
--- OUTSIDE RECORDS SUMMARY | 2025-07-31 17:34 | XMS_ITS | Encounter Summary ---
Author Organization Healthcare Address [address] [place] [address] Care Team Providers Care Machine Bender Name Role Phone Wilma Howard Ambar ROUSEN Primary Care Provider [phone] Lea Fernando Unavailable [phone] Rachel Ray MATERIAL ASSISTANT Unavailable [phone] Taina Lyles MATERIAL ASSISTANT Primary Care Provider [phone] Monique Tapia LPN Unavailable Unavailable Alvarez Zimmer MD Primary Care Provider [phone] Shaniqua Trevino DIALYSIS REGISTERED NURSE Unavailable Unavailable Tamera Isabel LPN Unavailable UnavailAlina Bedolla RN Unavailable Unavailab Monique Che LPN Unavailable Unavailable Encounter Details Date Type Department Care Team (Late st Contact Info) Description 02/08/2024 Orders Only External Location [address] [place] [phone] Provider, External Social History Tobacco Use Types [...] P[facility] A Interventional Radiology [address] [place] [address] 08/01/2025 11:00 AM EDT Appointment [facility] Interventional Radiology [address] [place] [address] 08/08/2025 11:15 AM EDT Appointment [facility] Interventional Radiology [address] [place] [address] 08/08/2025 12:15 PM EDT Appointment [facility] Interventional Radiology [address] [place] [address] 2025 10:00 AM EDT Appointment [facility] Interventional Radiology [address] [place] [address] 2025 11:00 AM EDT Appointment [facility] Interventional Radiology [address] [place] [address] 08/20/2025 9:30 AM EDT Clinical Support [facility] [place] [address] [place] [address] 08/20/2025 10:30 AM EDT Social Work [facility] [place] [address] [place] [address] [place] [address] 08/20/2025 11:00 AM EDT Office Visit [facility] [place] [address] [place] [address] Jude Duque MD [address] [place] [address] documented as of this encounter Procedures Procedure [...] as of this encounter Care Teams Machine Bender Relationship Specialty Start Date End Date Wilma Howard APRN [address] [place] [address] [place] [address] PCP - General 04/03/21 09/30/24 Taina Lyles APRN [address] [place] [address] [place] [address] PCP - General 10/01/24 12/06/24 Alvarez Zimmer MD [address] [place] [phone] PCP - General Family Medicine 12/07/24 Lea Fernando [address] [address] [address] Fabric Worker Foreman Endocrinology 08/29/24 Rachel Ray, MATERIAL ASSISTANT [address] [place] [address] Nurse Practitioner Gastroenterology 09/24/24 Monique Tapia LPN VALUE-BASED [place] [address] TCM Nurse 11/28/24 12/28/24 Shaniqua Trevino LPN TCM Nurse 01/15/25 02/14/25 Tamera Isabel LPN VALUE-BASED TRANSFORMATION PROGRAM Licensed Practical Nurse 05/29/25 Alina Lovett, RN CH-VASCULAR & INTERVENTIONAL RADIOLOGY Registered Nurse 06/26/25 06/26/25 Monique Tapia LPN VALUE-BASED [place] [address] TCM Nurse 07/10/25 documented as of this encounter
--- OUTSIDE RECORDS SUMMARY | 2025-07-31 17:34 | XMS_ITS | Encounter Summary ---
Author Organization Healthcare Address [address] [place] [address] Care Team Providers Care Business Law Teacher Name Role Phone Lea Fernando Unavailable [phone] Rachel Ray INSPECTOR AND HAND PACKAGER Unavailable [phone] Alvarez Zimmer MD Primary Care Provider [phone] Tamera Isabel STATISTICAL DEVELOPER Unavailable Unavailabl e Encounter Details Date Type Department Care Team (Late st Contact Info) Description 04/04/2025 Results Follow-Up [facility] Medicine Specialties [address] [place] [address] Octavia Herrera, MARIA GUADALUPE [address] [place] [address] Social History Tobacco Use Types [...] week 01/10/2025 How often do you attend [facility] or protestant services? Patient unable to answer [...] more drinks on one occasion? Never 06/05/2025 [facility] - Occupational [...] in the past 12 m [facility], were you homeless or living in a [...] drink first t kennedy in the morning (EYE-HEAVY DUTY TRUCK MECHANIC) to steady your nerves or to get rid of a hangover? 0 10/22/2024 CAGE Questionnaire Score 0 024 Utilities Answer Date Recorded In the past 12 months has th [employer], gas, oil, or water [employer] threatened to shut off services in your [...] of Assessment Author 0 05/29/2025 2:26 PM TAMMYT Ambar Isabel LPN * Question Answer Date [...] 05/07/2025 9:08 AM EDT Tamera Carter * Calculated C-SSRS Risk Score (Lifetime/Recent) Answer [...] difficult 05/07/2025 9:08 AM EDT Tamera Carter * Question Answer Date of Assessment Author 1. Wish to be (Past 1 Month) No 025 12:55 PM Deysi Hinton RN 2. Non-Specific Active Suici liz Thoughts (Past 1 Month) No 05/31/2025 12:55 PM TAMMYT Bridger Blanca RN 6. Suicidal Behavior (Lifetime) No 12:55 PM Deysi Hinton RN documented as of this encounter Plan of Treatment Upcoming Encounters Date Type Department Care Team (Late st Contact Info) Description 08/01/2025 10:00 AM EDT Appointment [facility] [address] [place] [address] 08/01/2025 11:00 AM EDT Appointment [facility] [address] [place] [address] 08/08/2025 11:15 AM EDT Appointment [facility] [address] [place] [address] 08/08/2025 12:15 PM EDT Appointment [facility] [address] [place] [address] 2025 10:00 AM EDT Appointment [facility] [address] [place] [address] 2025 11:00 AM EDT Appointment [facility] [address] [place] [address] 08/20/2025 9:30 AM EDT Clinical Support [facility] [place] [address] [place] [address] 08/20/2025 10:30 AM EDT Social Work [facility] [place] [address] [place] [address] [place] [address] 08/20/2025 11:00 AM EDT Office Visit [facility] [place] [address] [place] [address] Jude Duque MD [address] [facility] [address] [place] [address] documented as of this encounter Visit Diagnoses [...] as of this encounter Care Teams Business Law Teacher Relationship Specialty Start Date End Date Alvarez Zimmer MD [facility] [place] [address] PCP - General Family Medicine 12/07/24 Lea Fernando [address] [place] [address] Bottom Stop Attacher Endocrinology 08/29/24 Rachel Ray APRN [address] [place] [address] Nurse Practitioner Gastroenterology 09/24/24 Tamera Isabel LPN VALUE-BASED TRANSFORMATION PROGRAM Licensed Practical Nurse 05/29/25 documented as of this encounter
--- OUTSIDE RECORDS SUMMARY | 2025-07-31 17:34 | XMS_ITS | Encounter Summary ---
Author Organization [facility] Address [address] [place] [address] Care Team Providers Care Assembly Line Brazer Name Role Phone Lea Fernando Unavailable [phone] Rachel Ray INTERNET DESIGNER Unavailable [phone] Alvarez Zimmer MD Primary Care Provider Tamera Isabel SUPERVISOR CORRESPONDENCE SECTION Unavailable UnavailAlina Bedolla RN Unavailable Unavailab Monique Che SUPERVISOR CORRESPONDENCE SECTION Unavailable Unavailable Reason for Visit * Reason Onset Date Comments Med Refill 03/16/2025 Encounter Details Date Type Department Care Team (Late st Contact Info) Description 03/16/2025 Refill [facility] [address] [place] [address] Alvarez Zimmer MD [address] [place] [address] Social History Tobacco Use Types [...] How often do you attend chur or sikh services? Patient unable to answer [...] Recorded Patient Health Questionnaire-2 Score 0 03/06/2025 [facility] - Occupational [...] first t kennedy in the morning (EYE-COURT DEPUTY) to steady your nerves or to get rid of a hangover? 0 10/22/2024 CAGE Questionnaire Score 0 024 Utilities Answer Date Recorded In the past 12 months has e [employer], gas, oil, or water company threatened to [...] Appointment [facility] [address] [place] [address] 08/01/2025 11:00 AM EDT Appointment [facility] [address] [place] [address] 08/08/2025 11:15 AM EDT Appointment [facility] [address] [place] [address] 08/08/2025 12:15 PM EDT Appointment [facility] [address] [place] [address] 2025 10:00 AM EDT Appointment [facility] [address] [place] [address] 2025 11:00 AM EDT Appointment [facility] [address] [place] [address] 08/20/2025 9:30 AM EDT Clinical Support [facility] [place] [address] [facility] [address] [place] [address] 08/20/2025 10:[address] [facility] [place] [address] [facility] [address] [place] [address] [address] [place], [place] [id number] 08/20/2025 11:00 AM EDT Office Visit [facility] [place] [address] [address] Jude Duque MD [id number] [place] [address] documented as of this encounter [...] documented as of this encounter Care Teams Assembly Line Brazer Relationship Specialty Start Date End Date Alvarez Zimmer MD [address] [place] [address] PCP - General Family Medicine 12/07/24 Lea Fernando [address] [facility] [address] [place] [address] Labor Economics Professor Endocrinology 08/29/24 Rachel Ray APRN [address] [facility] [address] [place] [address] Nurse Practitioner Gastroenterology 09/24/24 Tamera Isabel LPN VALUE-BASED TRANSFORMATION PROGRAM Licensed Practical Nurse 05/29/25 Alina Lovett, RN [facility] INTERVENT[facility] RADIOLOGY Registered Nurse 06/26/25 06/26/25 Monique Tapia LPN VALUE-[place]ED [place] [address] TCM Nurse 07/10/25 documented as of this encounter
--- OUTSIDE RECORDS SUMMARY | 2025-07-31 17:34 | XMS_ITS | Encounter Summary ---
Author Organization Healthcare Address [address] [place] [address] Care Team Providers Care Blanket Folder Name Role Phone Wilma Howard Ambar ROUSEN Primary Care Provider [phone] Lea Fernando Unavailable [phone] Rachel Ray BABBITT SPINNER Unavailable [phone] Taina Lyles BABBITT SPINNER Primary Care Provider [phone] Monique Tapia LPN Unavailable Unavailable Alvarez Zimmer MD Primary Care Provider [phone] Shaniqua Trevino ESCORT VEHICLE DRIVER Unavailable Unavailable Tamera Isabel LPN Unavailable UnavailAlina Bedolla RN Unavailable Unavailab Monique Che LPN Unavailable Unavailable Encounter Details Date Type Department Care Team (Late st Contact Info) Description 04/23/2024 Orders Only External Location [address] [place] [phone] Provider, External Social History Tobacco Use Types [...] [facility] [address] [place] [address] 08/01/2025 11:00 AM EDT Appointment [facility] [address] [place] [address] 08/08/2025 11:15 AM EDT Appointment [facility] [address] [place] [address] 08/08/2025 12:15 PM EDT Appointment [facility] [address] [place] [address] 2025 10:00 AM EDT Appointment [facility] [address] [place] [address] 2025 11:00 AM EDT Appointment [facility] [address] [place] [address] 08/20/2025 9:30 AM EDT Clinical Support [facility] [place] [address] [place] [address] 08/20/2025 10:30 AM EDT Social Work [facility] [place] [address] [place] [address] [place] [address] 08/20/2025 11:00 AM EDT Office Visit [facility] [place] [address] [place] [address] Jude Duque MD [address] [place] [address] documented as of this encounter Procedures Procedure [...] documented as of this encounter Care Teams Blanket Folder Relationship Specialty Start Date End Date Wilma Howard APRN [address] [place] [address] [place] [address] PCP - General 04/03/21 09/30/24 Taina Lyles APRN [address] [place] [address] [place] [address] PCP - General 10/01/24 12/06/24 Alvarez Zimmer MD [address] [place] [phone] PCP - General Family Medicine 12/07/24 Lea Fernando [facility] [address] Building Illuminating Engineer Endocrinology 08/29/24 Rachel Ray, BABBITT SPINNER [address] [place] [address] Nurse Practitioner Gastroenterology 09/24/24 Monique Tapia LPN VALUE-BASED [place] [address] TCM Nurse 11/28/24 12/28/24 Shaniqua Trevino LPN TCM Nurse 01/15/25 02/14/25 Tamera Isabel LPN VALUE-BASED TRANSFORMATION PROGRAM Licensed Practical Nurse 05/29/25 Alina Lovett, RN [facility] INTERVENTIONAL RADIOLOGY Registered Nurse 06/26/25 06/26/25 Monique Tapia LPN VALUE-BASED [place] [address] TCM Nurse 07/10/25 documented as of this encounter
[2025-07-31 18:16] LABS: Microscopic, Urine URINE MICROSCOPIC (MICROSCOPIC)
[2025-07-31 18:36] LABS: Bilirubin,Urine Negative (Negative); Color,Urine YELLOW (Yellow); Glucose,Urine (UA) Negative (Negative); Ketones,Urine Negative (Negative); Leukocyte Esterase,Urine Negative (Negative); PH,Urine 5.5 (5.0-8.5); Protein,Urine Negative (Negative); Specific Gravity, Urine 1.025 (1.005-1.030); Urobilinogen,Urine 0.2 EU/dl (0.2)
[2025-07-31 19:53] LABS: Bacteria,Urine Trace /lpf; WBC,Urine Occasional #/hpf (0-3)
== END 2025-07-31 23:59 | disposition home or self-care (01) ==
LOC: LAB.DROPOF 17:24
PROVIDERS: PCP Nurse Practitioner Family; Visit Provider Nurse Practitioner Family
DX: E11.40 Type 2 diabetes mellitus with diabetic neuropathy, unspecified (principal); N18.32 Chronic kidney disease, stage 3b
CPT/HCPCS: 81001; 87086

== ENCOUNTER 2025-08-17 13:31 | Outpatient (CLI) | payer MEDICARE, MEDICAID, SELFPAY ==
--- OUTSIDE RECORDS SUMMARY | 2014-04-02 05:08 | XMS_ITS | Continuity of Care Document ---
Author Organization [facility] Address [address] [place] [address] Phone Care Team Providers Care Deputy Program Manager Name Role Phone Kristian Ayala MD Unavailable [...] Active Procedures Procedure Date REFRACTION OFFICE/OUTPATIENT VISIT, [facility] Advance Directives Directive Yes / No Effective Date File Name No Information Encounters Encounter Description Practice Location Reason(s) For Visit Diagnoses Date Provider OFFICE/OUTPATI ENT VISIT, [facility] , [address] [place] [address], [address], [place] tel:[phone] [place] Office diabetes (chief complaint)d ecreased vision (chief complaint) Diabetes Mellitus, Adult Onset, UncontrolledSenile nuclear sclerosis Jamie Townsend. [address] [facility], [place], [address]. tel:[phone] Family History Family Member Type Diagnosis Age At Onset Father Problem (finding) degenerative disorder o f macula Father Problem (finding) cataract Payers Payer name Insurance type Covered constitution party ID Annalee de leon(s) [facility] Community Plan CI [id number] Social History Type Description Quantity Date Captured [...]
--- OUTSIDE RECORDS SUMMARY | 2023-07-07 19:50 | XMS_ITS | Encounter Summary ---
Author Organization [facility] Address [address] [place] [address] Care Team Providers Care Contractor Broomcorn Threshing Name Role Phone Taina Lyles APRN Primary Care Provider [phone] Reason for Referral * Hospital - Outpatient (Routine) - Closed Specialty Diagnoses / Procedures Referred By Eder zhu Referred To Contact Diagnoses JONATHAN (obstructive sleep apnea) Obesity (BMI 30-39.9) Nocturnal hypoxia Procedures Polysomnography 4 or More Parameters With CPAP Whitney Agarwal MD [address] [place] [address] Phone: tel: fax: Referral ID Status Reason Start Date Expiration Date Visits Re quested Visits Authorized [id number] Closed 04/14/2023 04/13/2024 1 1 Reason for Visit * Hospital - Outpatient (Routine) - Closed Specialty Diagnoses / Procedures Referred By Eder zhu Referred To Contact Diagnoses JONATHAN (obstructive sleep apnea) Obesity (BMI 30-39.9) Nocturnal hypoxia Procedures Polysomnography 4 or More Parameters With CPAP Whitney Agarwal MD [address] [place] [address] [address] Phone: tel: fax: Referral ID Status Reason Start Date Expiration Date Visits Re quested Visits Authorized [id number] Closed 04/14/2023 04/13/2024 1 1 Encounter Details Date Type Department Care Team (Latest Contact Info) Description 07/07/2023 7:50 PM EDT Hospital Encounter [facility] [address] [place] [address] Whitney Agarwal MD [address] [facility] [address] [address] [place] [address] JONATHAN (obstructive sleep apnea); Obesity [...] place to sleep or slept in a care home (including now)? No 12/01/2022 Abuse Screen Answer [...] AM EDT documented as of this encounter Functional Status * Over the past 2 weeks, how often have you been bothered by any of the following problems? Question Answer Date of Assessment Author Patient Health Questionnaire-2 Score 6 05/21 10:08 AM EDT Mychart, Generic * Little interest or pleasure in doing things Answer Date of Assessment Author Nearly every day 06/01/2025 10:08 AM EDT Mychart , Generic * Feeling down, depressed, or hopeless Answer Date of Assessment Author Nearly every day 06/01/2025 10:08 AM EDT Mychart , Generic * Question Answer Date of Assessment Author Patient Health Questionnaire-9 Score 24 05/21 10:08 AM EDT Mychart, Generic * Trouble falling or staying asleep, or sleeping too much Answer Date of Assessment Author Nearly every day 06/01/2025 10:08 AM EDT Mychart , Generic * Feeling tired or having little energy Answer Date of Assessment Author Nearly every day 06/01/2025 10:08 AM EDT Mychart , Generic * Poor appetite or overeating Answer Date of Assessment Author Nearly every day 06/01/2025 10:08 AM EDT Mychart , Generic * Feeling bad about yourself - or that you are a failure or have let yourself or your family down Answer Date of Assessment Author Nearly every day 06/01/2025 10:08 AM EDT Mychart , Generic * Trouble concentrating on things, such as reading the newspaper or watching television Answer Date of Assessment Author Nearly every day 06/01/2025 10:08 AM EDT Mychart , Generic * Moving or speaking so slowly that other people could have noticed? Or the opposite - being so fidgety or restless that you have been moving around a lot more than usual. Answer Date of Assessment Author More than half the days 06/01/2025 10:08 AM EDT Mychart, Generic * Thoughts that you would be better off or hurting yourself in some way Answer Date of Assessment Author Several days 06/01/2025 10:08 AM EDT Mychart, Generic * How difficult have these problems made it for you to do your work, take care of things at home, or get along with other people? Answer Date of Assessment Author Somewhat difficult 06/01/2025 10:08 AM EDT Mycha rt, Generic documented as of this encounter Plan of Treatment Not on file documented as of this encounter Procedures Procedure Name Priority Date/Time Associated Diagnosis Comments TITRATION Routine 07/08/2023 6:11 AM EDT JONATHAN (obstructive sleep apnea) Obesity (BMI 30-39.9) Nocturnal hypoxia documented in this encounter Results * TITRATION (07/08/2023 6:11 AM EDT) Narrative SLEEP MEDICINE - 07/09/2023 12:44 PM EDT [facility] Pulmonary, Critical Care, and Sleep Medicine Whitney Agarwal M.D. [address] [facility] [address] Medical Office [address], [place]. [address]. CPAP/BiPAP TITRATION INTERPRETATION Date of Study: 07/07/2023 [...] feel free to contact the office of [facility] Pulmonary, Critical Care and Sleep Medicine at [phone], if you have any questions about this study. Best regards, This document was electronically signed by Whitney Agarwal MD on 07/09/23 at 12:38 EDT Whitney Agarwal MD SLEEP CENTER ORDERABLES Tari adler Result SLEEP MEDICINE documented in this encounter Visit Diagnoses Diagnosis JONATHAN (obstructive sleep apnea) Obstructive sleep apnea (adult) (pediatric) Obesity (BMI 30-39.9) Nocturnal hypoxia documented in this encounter Additional Health Concerns Assessment Noted Time PHQ-2 Depression Total Score: 3 01/12/20 23 10:22 AM EST documented as of this encounter Care Teams Contractor Broomcorn Threshing Relationship Specialty Start Date End Date Taina Lyles APRN PCP - General Nurse Practitioner 12/30/22 documented as of this encounter
--- OUTSIDE RECORDS SUMMARY | 2025-06-20 09:03 | XMS_ITS | Encounter Summary ---
Author Organization [facility] Address [address] [place] [address] Care Team Providers Care Restaurant Managing Partner Name Role Phone Lea Fernando Unavailable [phone] Rachel Ray SCIENCE LIAISON Unavailable [phone] Alvarez Zimmer MD Primary Care Provider [phone] Tamera Isabel LPN Unavailable Unavailabl e Reason for Referral * Imaging (Routine) - Closed Specialty Diagnoses / Procedures Referred By Eder zhu Referred To Contact Radiology Diagnoses Other ascites Procedures US Guided Abdominal Paracentesis Preeti Andersen APRN [address] [place] [address] Phone: tel: fax: Referral ID Status Reason Start Date Expiration Date Visits Re quested Visits Authorized [id number] Closed 06/20/2025 12/20/2026 1 1 * Clinic-Administered Medication (Routine) - Closed Specialty Diagnoses / Procedures Referred By Contherbert t Referred To Contact Diagnoses Other ascites Procedures MI ABDOM PARACENTESIS DX/THER W IMAGING GUIDANCE Preeti Andersen APRN [address] [place] [address] Phone: tel: fax: [facility] [address] [place] [address] Phone: tel: fax: Referral ID Status Reason Start Date Expiration Date Visits Re quested Visits Authorized [id number] Closed 06/20/2025 12/20/2026 1 1 * Imaging (Routine) - Closed Specialty Diagnoses / Procedures Referred By Contac t Referred To Contact Radiology Diagnoses Other ascites Procedures US Guided Thoracentesis Marianna Gordon APRN [address] [place] [address] Phone: tel: fax: Referral ID Status Reason Start Date Expiration Date Visits Re quested Visits Authorized [id number] Closed 05/23/2025 11/22/2026 1 1 Reason for Visit * Imaging (Routine) - Closed Specialty Diagnoses / Procedures Referred By Eder zhu Referred To Contact Radiology Diagnoses Other ascites Procedures US Guided Abdominal Paracentesis Marianna Gordon APRN [address] [place] [address] Phone: tel: fax: Referral ID Status Reason Start Date Expiration Date Visits Re quested Visits Authorized [id number] Closed 04/26/2025 10/26/2026 1 1 Encounter Details Date Type Department Care Team (Latest Contact Info) Description 06/20/2025 9:03 AM EDT - 06/20/2025 1:03 PM EDT Hospital Encounter [facility] Interventional Radiology [address] [place] [address] Shanthi Rooney Other ascites Discharge [...] How often do you attend chur or sabianist services? Patient unable to answer 01/10/2025 Do you belong to any clubs o r organizations such as pentecostal groups, unions, fraternal or athletic groups, or [...] often do you attend chur ch or sabianist services? Never 05/29/2025 Do you belong to any clubs o r organizations such as pentecostal groups, unions, fraternal or athletic groups, or [...] one occasion? Never [facility]/05/20[facility] - Occupational Stress Questionnaire Answer Date Recorded [...] in the past 12 m [facility], were you homeless or living in a halfway (including now)? No 05/29/2025 CAGE ASSESSMENT Answer [...] drink first t kennedy in the morning (EYE-FLUE BLOWER) to steady your nerves or to get [...] 04/17/2025 5 ergocalciferol (Vitamin D-2) 1.25 MG (52911 UT) capsuleIndications: Vitamin D deficiency Take 1 [...] from the original note were not included. [address]21 Discharge Instructions for Paracentesis Paracentesis is a [...] fainting. Last Reviewed Date: 2025 00:00:00 ?? [id number] [employer]. All rights reserved. This information is not [...] Description 08/20/2025 9:30 AM EDT Clinical Support [facility] [address] [place] [address] 08/20/2025 10:30 AM EDT Social Work [facility] [place] [address] [place] [address] [place] [address] 08/20/2025 11:00 AM EDT Office Visit [facility] [place] [address] [place] [address] Jude Duque MD [address] [place] [address] 08/22/2025 11:15 AM EDT Appointment [facility] Inter[facility] Radiology [address] [place] [address] 08/22/2025 12:15 PM EDT Appointment [facility] Interventional Radiology [address] [place] [address] 08/26/2025 1:00 PM EDT Office Visit [facility] Endocr[facility]ology [address] [place] [id number] Miranda Hobson, SCIENCE LIAISON [address] [place] [address] 08/29/2025 10:00 AM EDT Appointment [facility] Inter[facility] Radiology [address] [place] [address] 08/29/2025 11:00 AM EDT Appointment [facility]iology [address] [place] [address] 09/05/2025 10:00 AM EDT Appointment [facility] Inter[facility] Radiology [address] [place] [address] 09/05/2025 11:00 AM EDT Appointment [facility] Inter[facility] Radiology [address] [place] [address] documented as of this encounter Procedures Procedure [...] on 06/20/2025 2:13 PM us Preeti Andersen SCIENCE LIAISON IMG XR PROCEDURES Final Result * US [...] by ascites and intermittent hepatic hydrothorax. TECHNIQUE: Environmental Communications Specialist: ADRI Andersen Secondary Java Engineer: None. Nurse: Padmini Technologist: Lilliana Phillips Dose: [...] complicated by ascites and intermittent hepatichydrothorax. TECHNIQUE: Environmental Communications Specialist: ADRI Andersen Secondary Java Engineer: None. Nurse: Padmini Technologist: Lilliana Phillips Dose: [...] the ascites. [facility]. A total of 4.3 [...] on 06/23/2025 9:14 PM us Preeti Andersen SCIENCE LIAISON IMG US PROCEDURES Final Result * US [...] by ascites and intermittent hepatic hydrothorax. TECHNIQUE: Environmental Communications Specialist: ADRI Andersen Secondary Java Engineer: None. Nurse: Padmini Technologist: Lilliana Phillips Dose: [...] complicated by ascites and intermittent hepatichydrothorax. TECHNIQUE: Environmental Communications Specialist: ADRI Andersen Secondary Java Engineer: None. Nurse: Padmini Technologist: Lilliana Phillips Dose: [...] on 06/23/2025 9:14 PM us Marianna Gordon SCIENCE LIAISON IMG US PROCEDURES Final Resu lt * Body fluid, cytospin, pathologist interpretation (06/20/2025 12:03 PM EDT) Specimen Type Body Fluid LAB HEMATOLOGY METHOD 06/21/2025 4:37 PM EDT [facility] Specimen Source, Body Fluid Pleural, Right LAB HEMATOLOGY METHOD 06/21/2025 4:37 PM EDT [facility] Clinical Diagnosis, Body Fluid Pleural effusion LAB HEMATOLOGY METHOD 06/21/2025 4:37 PM EDT [facility] Interpretation , Body Fluid No evidence of malignancy Chronic inflammatory cells Lymphocytosis Moderate blood A resident was involved in the service. I attest I examined the relevant preparations for the specimens and confirmed the diagnosis or interpretation. 06/21/2025 4:37 PM EDT [facility] Pathologist Signature, Body Fluid 06/21/2025 4:37 PM EDT [facility] Comment:Reviewed by: Kadie dobbs MD LAB CP ASR DISCLAIMER Yes 06/21/2025 4:37 PM EDT [facility] Body Fluid Structure of right pleural cavity / Unknown Non-blood Collection / Unknown 06/20/2025 12:03 PM EDT 06/20/2025 2:44 PM EDT us Preeti Andersen SCIENCE LIAISON LAB BODY FLUIDS AND STO OLS ORDERABLES Final Result [facility] [address] [place] [address] * Lactate Dehydrogenase, Pleural Fluid - Right (06/20/2025 12:03 PM EDT) LDH, Fluid 57 U/L 06/20/2025 5:36 PM EDT [facility] Pleural Fluid Structure of right pleural cavity / Unknown Non-blood Collection / Unknown 06/20/2025 12:03 PM EDT 06/20/2025 2:44 PM EDT Narrative [facility] - 06/20/2025 5:36 PM EDT No [...] the following criteria are present: (1) pleural xxamg-co-lbwdg protein ratio of >0.5, (2) pleural tqpli-oe-mmnvh LDH ratio of >0.6, or (3) a pleural fluid LDH activity that is >2/3 the upper limit of a normal serum LDH activity. Light's criteria may misclassify ~25% of transudates as exudates in heart failure. These can be identified by calculating a bzupl-wm-wqrxrjm albumin gradient (>1.2 g/dL) and/or a qbbrz-ir-kejcb protein gradient (>3.1 g/dL). Preeti Andersen APRN LAB BODY FLUIDS AND STO OLS ORDERABLES Final Result Performing Organization Address [facility]/ZIP Co de Phone Number [facility] [address] [place] [address] * Total Protein, Pleural Fluid - Pleural Right (06/20/2025 12:03 PM EDT) Total Protein, Fluid 1 g/dL 06/20/2025 5:36 PM EDT [facility] Pleural Fluid Structure of right pleural cavity / Unknown Non-blood Collection / Unknown 06/20/2025 12:03 PM EDT 06/20/2025 2:44 PM EDT Narrative [facility] - 06/20/2025 5:36 PM EDT This test was developed and its performance characteristics determined by [facility]. The U.S. Food and Drug Administration has not approved or cleared this test. However, FDA clearance or approval is not currently required for clinical use. The results are not intended to be used as the sole means for clinical diagnosis or patient management decisions. Preeti Andersen APRN LAB BODY FLUIDS AND STO OLS ORDERABLES Final Result Performing Organization Address City/[facility]/ZIP Co de Phone Number [facility] [address] [place] [address] * Body Fluid Culture and Gram Stain - Pleural Right (06/20/2025 12:03 PM EDT) Culture No growth at day 4 2024 10:34 AM EDT [facility] Gram Stain Result No organisms seen 06/23/2025 10:34 AM EDT [facility] Gram Stain Result No polymorphonuclear leukocytes seen 06/23/2025 10:34 AM EDT [facility] Pleural Fluid Specimen from pleura obtained by thoracentesis / Unknown Non-blood Collection / Unknown 06/20/2025 12:03 PM EDT 06/20/2025 2:53 PM EDT us Preeti Andersen APRN LAB MICROBIOLOGY - GENE RAL ORDERABLES Final Result [facility] [address] [place] [address] * (ABNORMAL) Body Fluid Cell Count w/ Diff - Pleural Right (06/20/2025 12:03 PM EDT) Color, Body fluid Red LAB HEMATOLOGY METHOD 06/20/2025 8:20 PM EDT [facility] Appearance, Body fluid Cloudy(A) LAB HEMATOLOGY METHOD 06/20/2025 8:20 PM EDT [facility] Volume, Body fluid 5.8 cc LAB HEMATOLOGY METHOD 06/20/2025 8:20 PM EDT [facility] Fluid Container Tube 2 LAB HEMATOLOGY METHOD 06/20/2025 8:20 PM EDT [facility] Red Blood Cell Count, Body fluid 18,000 uL LAB HEMATOLOGY METHOD 06/20/2025 8:20 PM EDT [facility] Total Nucleated Cell Count, Body fluid 204 uL LAB HEMATOLOGY METHOD 06/20/2025 8:20 PM EDT [facility] Neutrophils %, Body fluid 0 % LAB HEMATOLOGY METHOD 06/20/2025 8:20 PM EDT [facility] Lymphocytes %, Body fluid 91 % LAB HEMATOLOGY METHOD 06/20/2025 8:20 PM EDT [facility] Monocytes/Macro phages %, Body fluid 6 % LAB HEMATOLOGY METHOD 06/20/2025 8:20 PM EDT [facility] Eosinophils %, Body fluid 1 % LAB HEMATOLOGY METHOD 06/20/2025 8:20 PM EDT [facility] Lining/Mesothel ial Cells %, Body fluid 2 % LAB HEMATOLOGY METHOD 06/20/2025 8:20 PM EDT [facility] Neutrophils Absolute (PMN), Body fluid 0 uL LAB HEMATOLOGY METHOD 06/20/2025 8:20 PM EDT [facility] Lymphocytes Absolute, Body fluid 186 uL LAB HEMATOLOGY METHOD 06/20/2025 8:20 PM EDT [facility] Monocytes/Macro phages Absolute, Body fluid 12 uL LAB HEMATOLOGY METHOD 06/20/2025 8:20 PM EDT [facility] Eosinophils Absolute, Body fluid 2 uL LAB HEMATOLOGY METHOD 06/20/2025 8:20 PM EDT [facility] Basophils Absolute, Body fluid 0 uL LAB HEMATOLOGY METHOD 06/20/2025 8:20 PM EDT [facility] Lining/Mesothel ial Cells Absolute, Body fluid 4 uL LAB HEMATOLOGY METHOD 06/20/2025 8:20 PM EDT [facility] Basophils %, Body fluid 0 % LAB HEMATOLOGY METHOD 06/20/2025 8:20 PM EDT [facility] Body Fluid Structure of right pleural cavity / Unknown Non-blood Collection / Unknown 06/20/2025 12:03 PM EDT 06/20/2025 2:44 PM EDT us Preeti Andersen APRN LAB BODY FLUIDS AND STOOLS ORDERABLES NO SPECIMEN TYPE/SOURCE Final Result [facility] [address] [place] [address] * Body fluid, cytospin, pathologist interpretation (06/20/2025 11:59 AM EDT) Specimen Type Body Fluid LAB HEMATOLOGY METHOD 06/21/2025 4:36 PM EDT [facility] Specimen Source, Body Fluid Peritoneal Fluid LAB HEMATOLOGY METHOD 06/21/2025 4:36 PM EDT [facility] Clinical Diagnosis, Body Fluid Ascites LAB HEMATOLOGY METHOD 06/21/2025 4:36 PM EDT [facility] Interpretation , Body Fluid No evidence of malignancy Chronic inflammatory cells Lymphocytosis Reactive mesothelial cells Moderate blood 06/21/2025 4:36 PM EDT [facility] Pathologist Signature, Body Fluid 06/21/2025 4:36 PM EDT [facility] Comment:Reviewed by: Kadie dobbs MD LAB CP ASR DISCLAIMER No 06/21/2025 4:36 PM EDT [facility] Body Fluid Peritoneal fluid / Unknown Non-blood Collection / Unknown 06/20/2025 11:59 AM EDT 06/20/2025 2:04 PM EDT Preeti Andersen APRN LAB BODY FLUIDS AND STO OLS ORDERABLES Final Result Performing Organization Address [facility] de Phone Number [facility] [address] [place] [address] * Protein - Ascites (06/20/2025 11:59 AM EDT) Total Protein, Fluid 0.7 g/dL 06/20/2025 4:25 PM EDT [facility] Peritoneal Fluid Peritoneal cavity structure / Unknown Non-blood Collection / Unknown 06/20/2025 11:59 AM EDT 06/20/2025 2:42 PM EDT Narrative [facility] - 06/20/2025 4:25 PM EDT This test was developed and its performance characteristics determined by [employer] [facility]. The U.S. Food and Drug Administration has not approved or cleared this test. However, FDA clearance or approval is not currently required for clinical use. The results are not intended to be used as the sole means for clinical diagnosis or patient management decisions. Preeti Andersen APRN LAB BODY FLUIDS AND STO OLS ORDERABLES Final Result Performing Organization Address [facility] Co de Phone Number [address] [address] * Albumin - Ascites (06/20/2025 11:59 AM EDT) Albumin, Peritoneal Fluid 0.4 g/dL 06/20/2025 4:25 PM EDT [facility] Peritoneal Fluid Peritoneal cavity structure / Unknown Non-blood Collection / Unknown 06/20/2025 11:59 AM EDT 06/20/2025 2:42 PM EDT Narrative [facility] - 06/20/2025 4:25 PM EDT REPORTING RESULTS Reference Values: No established reference interval. Results should be interpreted in comparison to the concentration in blood and in conjunction with the clinical context. This test was developed and its performance characteristics determined by [employer] [facility]. The U.S. Food and Drug Administration has not approved or cleared this test; however, FDA clearance or approval is not currently required for clinical use. The results are not intended to be used as the sole means for clinical diagnosis or patient management decisions. Preeti Andersen APRN LAB BODY FLUIDS AND STO OLS ORDERABLES Final Result [facility] [address] [place] [address] * Body Fluid Cell Count With Diff - Ascites (06/20/2025 11:59 AM EDT) Color, Body fluid [place] LAB HEMATOLOGY METHOD 06/20/2025 8:13 PM EDT [facility] Comment:Previously prelim ve rified as Red on 06/20/2025 at 1944 EDT. Appearance, Body fluid Clear LAB HEMATOLOGY METHOD 06/20/2025 8:13 PM EDT [facility] Comment:Previously prelim ve rified as Cloudy on 06/20/2025 at 1944 EDT. Volume, Body fluid 15.0 cc LAB HEMATOLOGY METHOD 06/20/2025 8:13 PM EDT [facility] Comment:Previously prelim ve rified as 5.8 cc on 06/20/2025 at 1944 EDT. Fluid Container Specimen received in miscellaneous container LAB HEMATOLOGY METHOD 06/20/2025 8:13 PM EDT [facility] Comment:Corrected result: Pr eviously reported as Tube 2 on 06/20/2025 at 1944 EDT. Red Blood Cell Count, Body fluid 13,000 uL LAB HEMATOLOGY METHOD 06/20/2025 8:13 PM EDT [facility] Total Nucleated Cell Count, Body fluid 164 uL LAB HEMATOLOGY METHOD 06/20/2025 8:13 PM EDT [facility] Neutrophils %, Body fluid 0 % LAB HEMATOLOGY METHOD 06/20/2025 8:13 PM EDT [facility] Lymphocytes %, Body fluid 91 % LAB HEMATOLOGY METHOD 06/20/2025 8:13 PM EDT [facility] Monocytes/Macr ophages %, Body fluid 9 % LAB HEMATOLOGY METHOD 06/20/2025 8:13 PM EDT [facility] Eosinophils %, Body fluid 0 % LAB HEMATOLOGY METHOD 06/20/2025 8:13 PM EDT [facility] Lining/Mesothe lial Cells %, Body fluid 0 % LAB HEMATOLOGY METHOD 06/20/2025 8:13 PM EDT [facility] Neutrophils Absolute (PMN), Body fluid 0 uL LAB HEMATOLOGY METHOD 06/20/2025 8:13 PM EDT [facility] Lymphocytes Absolute, Body fluid 149 uL LAB HEMATOLOGY METHOD 06/20/2025 8:13 PM EDT [facility] Monocytes/Macr ophages Absolute, Body fluid 15 uL LAB HEMATOLOGY METHOD 06/20/2025 8:13 PM EDT [facility] Eosinophils Absolute, Body fluid 0 uL LAB HEMATOLOGY METHOD 06/20/2025 8:13 PM EDT [facility] Basophils Absolute, Body fluid 0 uL LAB HEMATOLOGY METHOD 06/20/2025 8:13 PM EDT [facility] Lining/Mesothe lial Cells Absolute, Body fluid 0 uL LAB HEMATOLOGY METHOD 06/20/2025 8:13 PM EDT [facility] Basophils %, Body fluid 0 % LAB HEMATOLOGY METHOD 06/20/2025 8:13 PM EDT [facility] Body Fluid Peritoneal fluid / Unknown Non-blood Collection / Unknown 06/20/2025 11:59 AM EDT 06/20/2025 2:04 PM EDT Preeti Andersen APRN LAB BODY FLUIDS AND STOOLS ORDERABLES NO SPECIMEN TYPE/SOURCE Final Result [facility] [address] [place] [address] documented in this encounter Visit Diagnoses Diagnosis [...] documented as of this encounter Care Teams Restaurant Managing Partner Relationship Specialty Start Date End Date Alvarez Zimmer MD [address] [place] [id number] PCP - General Family Medicine 12/07/24 Lea Fernando [address] [place] [address] Patrol Sergeant Endocrinology 08/29/24 Rachel Ray APRN [address] [place] [address] Nurse Practitioner Gastroenterology 09/24/24 Tamera Isabel LPN VALUE-BASED TRANSFORMATION PROGRAM Licensed Practical Nurse 05/29/25 documented as of this encounter
--- OUTSIDE RECORDS SUMMARY | 2025-06-20 13:04 | XMS_ITS | Encounter Summary ---
Author Organization [facility] Address [address] [place] [address] Care Team Providers Care Clerical Administrative Assistant Name Role Phone Lea Fernando Unavailable [phone] Rachel Ray PAPER COATER Unavailable [phone] Alvarez Zimmer MD Primary Care Provider [phone] Tamera Isabel DIRECT ENTRY MIDWIFE Unavailable Unavailabl e Encounter Details Date Type Department Care Team (Latest Contact Info) Description 06/20/2025 1:04 PM EDT - 06/20/2025 11:59 PM EDT Hospital Encounter [facility] Radiology [address] [place] [address] Discharge Disposition: Home or Self Care Social [...] week 01/10/2025 How often do you attend [facility] or restorationism services? Patient unable to answer 01/10/2025 Do you belong to any clubs o r organizations such as taoist groups, unions, fraternal or athletic groups, or [...] How often do you attend chur or restorationism services? Never 05/29/2025 Do you belong to any clubs o r organizations such as taoist groups, unions, fraternal or athletic groups, or [...] more drinks on one occasion? Never 06/05/2025 [facility] - Occupational [...] drink first t kennedy in the morning (EYE-ECHO TECH) to steady your nerves or to get rid of a hangover? 0 10/22/2024 CAGE Questionnaire Score 0 024 Utilities Answer Date Recorded In the past 12 months has th e [employer], gas, oil, or water company threatened to [...] MINI PEN NEEDLES 31G X 5 MM [facility] 04/22/2025 5 B-D ULTRAFINE III SHORT PEN 31G X 8 MM [facility] 01/14/2025 5 Blood Glucose Monitoring Suppl (Blood [...] 04/17/2025 5 ergocalciferol (Vitamin D-2) 1.25 MG (57087 UT) capsuleIndications: Vitamin D deficiency Take 1 [...] nausea or vomiting. 30 tablet 1 04/01/2025 08/05/202 5 pen needle, diabetic (BD Pen Needle [...] Description 08/20/2025 9:30 AM EDT Clinical Support [facility] [place] [address] [facility] [address] [place] [address] 08/20/2025 10:30 AM EDT Social Work [facility] [place] [address] [facility] [place] [address] [place] [address] 08/20/2025 11:00 AM EDT Office Visit [facility] [address] [facility] [place] [address] Jude Duque MD [address] [facility] [address] [place] [address] 08/22/2025 11:15 AM EDT Appointment [facility] Radiology [address] [place] [address] 08/22/2025 12:15 PM EDT Appointment [facility] Radiology [address] [place] [address] 08/26/2025 1:00 PM EDT Office Visit [facility] Endocrinology [address] [place] [address] Miranda Hobson P, PAPER COATER [address] [place] [address] 08/29/2025 10:00 AM EDT Appointment [facility] Inter[facility] Radiology [address] [place] [address] 08/29/2025 11:00 AM EDT Appointment [facility]iology [address] [place] [address] 09/05/2025 10:00 AM EDT Appointment [facility]iology [address] [place] [address] 09/05/2025 11:00 AM EDT Appointment [facility] Radiology [address] [place] [address] documented as of this encounter Procedures Procedure [...] signing this report, I, the attending physician, lana I have personally reviewed the images/data for the aboveexamination(s) and agree with the final edited report. Drafted by Ktalyn Aviles MD on 06/20/2025 1:49 PM Final report signed by Bari Aguillon MD on 06/20/2025 2:13 PM Preeti Andersen PAPER COATER IMG XR PROCEDURES Final Result documented in [...] documented as of this encounter Care Teams Clerical Administrative Assistant Relationship Specialty Start Date End Date Alvarez Zimmer MD [address] [place] [address] PCP - General Family Medicine 12/07/24 Lea Fernando [address] [place] [address] Battery Technician Endocrinology 08/29/24 Rachel Ray APRN [address] [place] [address] Nurse Practitioner Gastroenterology 09/24/24 Tamera Isabel LPN VALUE-BASED TRANSFORMATION PROGRAM Licensed Practical Nurse 05/29/25 documented as of this encounter
--- OUTSIDE RECORDS SUMMARY | 2025-06-25 13:00 | XMS_ITS | Encounter Summary ---
Author Organization Healthcare Address [address] [place] [address] Care Team Providers Care Line O Scribe Operator Name Role Phone Lea Fernando Unavailable [phone] Rachel Ray VP & GENERAL COUNSEL Unavailable [phone] Alvarez Zimmer MD Primary Care Provider [phone] Tamera Isabel POWDER TRUCK DRIVER Unavailable Unavailabl e Reason for Visit * Reason Comments Consult * Auth/Cert (Routine) Specialty Diagnoses / Procedures Referred By Contac t Referred To Contact Diagnoses CARLOTTA (acute kidney injury) Chilo Loyola MD [address] [facility] [address] [place] [address] Phone: tel: fax: [facility] [address] [place] [address] Phone: tel: Referral ID Status Reason Start Date Expiration Date Visits Re quested Visits Authorized [id number] 1 1 Encounter Details Date Type Department Care Team (Late st Contact Info) Description 06/25/2025 1:00 PM EDT Office Visit [facility] [address] [facility], [address] [place] [address] Arnulfo Joy MD [address] [place] [phone] Cirrhosis of liver with ascites, unspecified hepatic cirrhosis type (CMS/HCC) (Primary Dx); CARLOTTA (acute kidney injury) (CMS/HCC); Chronic kidney disease, stage 3b (CMS/HCC); Type 2 diabetes mellitus with hyperglycemia, with long-term current use of insulin (CMS/HCC) Social History Tobacco Use Types Packs/Day [...] often do you attend [facility] or zoroastrianism services? Patient unable to [...] , or living with a partner? 01/10/2025 Overall Financial Resource Strain (CARDIA) Answe [...] afraid of your partner or ex-partner? No 06/26/2025 Within the last year, have y ou been humiliated or emotionally abused in other ways by your partner or ex-partner? No Within the last year, have y ou been kicked, hit, slapped, or otherwise physically hurt by your partner or ex-partner? No 06/26/2025 Within the last year, have y ou been raped or forced to have any kind of sexual activity by your partner or ex-partner? No 06/26/2025 Social Connection and Isolation Panel Answer Date [...] you have a drink containing alcohol? Never 06/25/2025 Q2: How many drinks containi ng alcohol do you have on a typical day when you are drinking? Patient does not drink Q3: How often do you have si x or more drinks on one occasion? Never 06/25/2025 [facility] - Occupational Stress Questionnaire Answer Date [...] the money to buy more. Never true 06/26/20 25 Within the past 12 months, t he food you bought just didn't last and you didn't have money to get more. Never true 06/26/2025 PRAPARE - Transportation Answer Date Re corded In the past 12 months, has l ack of transportation kept you from medical appointments or from getting medications? No 04/2025 In the past 12 months, has l ack of transportation kept you from meetings, work, or from getting things needed for daily living? No 06/26/2025 Housing Stability Vital Sign Answer Rajesh e Recorded In the last 12 months, was t here a time when you were not able to pay the mortgage or rent on time? No 06/26/2025 In the past 12 months, how m any times have you moved where you were living? 0 06/26/2025 At any time in the past 12 m [facility], were you homeless or living in a fpc (including now)? No 06/26/2025 CAGE ASSESSMENT Answer Date Recorded Cage unable to access Not on file 06/25/2025 Cage max number of drinks Not on file 2024 Cage Beverages a week Not on file 06/25/2025 Have you ever felt you should CUT down on your d rinking? 0 06/25/2025 Have you been ANNOYED by people criticizing your drinking? 0 06/25/2025 Have you felt GUILTY about your drinking? 0 06/25/2025 Have you had a drink first t kennedy in the morning (EYE-CHEMICAL RESEARCH WORKER) to steady your nerves or to get rid of a hangover? 0 06/25/2025 CAGE Questionnaire Score 0 025 Utilities Answer Date Recorded In the past 12 months has th e [employer], gas, oil, or water [employer] threatened to shut off services in your home? No 06/26/2025 Education Answer Date Recorded What is the [...] Sign Reading Time Taken Comments Blood Pressure 108/60 06/25/2025 12:48 PM EDT Pulse 66 06/25/2025 12:48 PM EDT Temperature 36.9 C (98.5 F) 06/25/2025 12:48 PM EDT Respiratory Rate 18 06/25/2025 12:48 PM EDT Oxygen Saturation 97% 06/25/2025 12:48 PM EDT Inhaled Oxygen Concentration - - Weight 79.9 kg (176 lb 2.4 oz) 06/25/2025 12:48 PM EDT Height 165.1 cm (5' 5 ) 06/25/2025 12:48 PM EDT Body Mass Index 29.31 06/25/2025 12:48 PM EDT documented in this encounter Functional Status * AUDIT-C Score Answer Date of Assessment Author 0 06/25/2025 12:50 PM EDT Henny Comer * Question Answer Date of Assessment Author Q1: How often do you have a drink containing alcohol? Never 06/25/2025 12:50 PM EDT Henny Comer Q2: How many drinks containing alcohol do you have on a typical day when you are drinking? Patient does not drink 06/25/2025 12:50 PM EDT Henny Comer Q3: How often do you have six or more drinks on one occasion? Never 06/25/2025 12:50 PM EDT Henny Comer * Calculated C-SSRS Risk Score (Lifetime/Recent) Answer Date of Assessment Author No Risk Indicated 06/25/2025 2:24 PM EDT Evelio Casanova RN * Question Answer Date of Assessment Author 1. Wish to be (Past 1 Month) No 06/25/2025 2:24 PM EDT Evelio Hinojosa RN 2. Non-Specific Active Suici liz Thoughts (Past 1 Month) No 06/25/2025 2:24 PM EDT Armand Hinojosa RN 6. Suicidal Behavior (Lifetime) No 2:24 PM EDT Evelio Hinojosa RN documented as of this encounter Miscellaneous Notes * Clinician Note - Venessa Sotelo - 06/25/2025 1:00 PM [place] [phone], Cris[facility] at [facility], PT left with Riley Castaneda and EMS * Progress Notes - Arnulfo Joy MD - 06/25/2025 1:00 PM EDT Nephrology Clinic New Patient Consult. PCP: Alvarez Zimmer HPI/Clinical Course: Ms. Zimmer is a 64-year-old woman with a past medical history significant for MASH cirrhosis who had laboratory data collected as an outpatient that showed worsening clearance. Review of her chart shows that her baseline serum creatinine is 1.3 - 1.5 mg/dL recently, she has struggled with poor oral nu trition/poor appetite and her laboratory data showed her creatinine had risen to 2.3 mg/dL. She wasadvised to hold her Crestor and her proton pump inhibitor and had repeat labs checked that showed ???worsening kidney function with rising creatinine. She is undergoing evaluation by the liver transplant team. Her transplant candidacy is on hold due to her poor social support and her inability to care for herself. She presented to Nephrology Clinic for acute visit to assess her worsening kidney function. She is accompanied by her mother and her sister report that they are unable to care for her independently at home. They confirmed that the patient has had very poor oral nutrition recently. The patient reports good adherence with her lactulose and has frequent bowel movements for management of hepatic encephalopathy. She also undergoes large volume paracentesis every . She denieshigh fever, soaking sweats or shaking chills. She reports good adherence with her midodrine 10 mg by mouth three times a day. She reports that recently she had a hypoglycemic episode last night with a measured glucose level of 69. She had a snack and did not recheck her glucose level. We discussed strategies to assess her ongoing kidney dysfunction, liver dysfunction, poor nutrition, lactulose induced diarrhea and worsening abdominal ascites and due to the complexity of her care, I discussed the possibility of evaluation in the emergency department. The patient denies chest pain, palpitations, lightheadedness, dizziness or worsening shortness for breath. Past Medical History Pertinent Negatives[1] ADHD (attention deficit hyperactivity disorder) Allergic Anxiety disorder, unspecified Anxiety Bleeding gums Blood in urine Cataract Chronic kidney disease Cirrhosis (CMS/HCC) Colon cancer screening 09/20/2019 Added automatically from request for surgery [id number] Coronary artery disease Depression 1995 Diabetes mellitus [...] uncomplicated Asthma Unspecified osteoarthritis, unspecified site Arthritis Past Surgical History: 1979: APPENDECTOMY No date: BLADDER SURGERY; N/A Comment: Bladder surgery from [facility] 2011: BREAST BIOPSY 2010: BREAST SURGERY No date: BUNIONECTOMY; Right 2016: CATARACT EXTRACTION; Bilateral 1979: CHOLECYSTECTOMY No date: ESOPHAGOGASTRODUODENOSCOPY No date: HYSTERECTOMY; N/A Comment: Hysterectomy from [facility] No date: KNEE SURGERY; Bilateral No date: ORAL SURGERY; N/A Comment: Oral surgery from [facility] 2015: OTHER SURGICAL HISTORY No date: ROOT CANAL No date: WISDOM TOOTH EXTRACTION Current Medications[2] as of 06/25/2025 1:52 PM Current Outpatient Medications: Abaloparatide (Tymlos) 3120 MCG/1.56ML solution pen-injector, Inject 80 mcg under the skin daily., Disp: 1.56 mL, Rfl: 2 B-D UF III MINI PEN NEEDLES 31G X 5 MM [facility], , Disp: , Rfl: Blood Glucose Monitoring Suppl (Blood Glucose Monitor System) w/Device kit, Test blood sugars twicea day. Dx E11.65, Disp: 1 kit, Rfl: 0 calcitriol (Rocaltrol) 0.25 MCG capsule, Take 1 capsule by mouth daily., Disp: 30 capsule, Rfl: 0 calcium carbonate EX (Tums E-X) 750 MG [...] Rfl: 1 ergocalciferol (Vitamin D-2) 1.25 MG (25724 UT) capsule, Take 1 capsule by mouth 1 time per week., Disp: 8 capsule, Rfl: 3 glucose blood test strip, Use to test [...] times a day., Disp: 180 tablet, Rfl:3 Multiple Vitamins-Minerals (COMPLETE WOMENS PO), Take 1 tablet by mouth in the morning., Disp: , Rfl: ondansetron ODT (Zofran-ODT) 8 MG disintegrating tablet, [...] a day., Disp: 60 tablet, Rfl: 11 Zegalogue 0.6 MG/0.6ML solution auto-injector, Inject 0.6 mg under the skin 1 time as needed (for extreme hypoglycemia) for up to 1 dose., Disp: 0.6 mL, Rfl: 2 zinc sulfate (Zincate) 220 (50 Zn) MG capsule, Take 1 capsule by mouth in the morning and 1 capsulebefore bedtime., Disp: 60 capsule, Rfl: 2 azelastine (Astelin) 0.1 % nasal spray, Administer 1 spray into each nostril 2 times a day. Use in each nostril as directed (Patient not taking: Reported on 06/25/2025), Disp: 30 mL, Rfl: 12 B-D ULTRAFINE III SHORT PEN 31G X 8 MM misc, , Disp: , Rfl: capsaicin (Zostrix) 0.025 % cream, Apply thin layer to feet nightly WITH GLOVES (Patient not taking: Reported on 06/25/2025), Disp: 56.6 g, Rfl: 1 fluticasone (Flonase) 50 MCG/ACT nasal spray, Administer 1 spray into each nostril daily. Shake gently. Before first use, prime pump. After use, clean tip and replace cap. (Patient not taking: Reported on 06/25/2025), Disp: 16 g, Rfl: 0 omeprazole (PriLOSEC) [address] capsule, Take 1 capsule by mouth 2 times a day. Do not crush or chew. (Patient not taking: Reported on 06/25/2025), Disp: 60 capsule, Rfl: 1 rosuvastatin (Crestor) 20 MG tablet, Take 1 tablet by mouth nightly. (Patient not taking: Reported on 06/25/2025), Disp: 90 tablet, Rfl: 2 Review of Systems: A 10 point review of systems was collected and was negative except as mentioned in the HPI. Social history: Has support from her mother and sister. , she has been unable to care for herself independently at home. She does not drink alcohol or smoke cigarettes. \ PHYSICAL EXAM: Blood pressure 108/60, pulse 66, temperature 36.9 ??C (98.5 ??F), temperature source Oral, resp. rate 18, height 1.651 m (5' 5 ), weight 79.9 kg (176 lb 2.4 oz), SpO2 97%, not currently . Visit Vitals BP 108/60 (BP Location: Left arm, Patient Position: Sitting, BP Cuff Size: Adult) Pulse 66 Temp 36.9 ??C (98.5 ??F) (Oral) Ht 1.651 m (5' 5 ) Wt 79.9 kg (176 lb 2.4 oz) SpO2 97% BMI 29.31 kg/m?? General: Alert, ambulatory, conversant, chronically ill-appearing, overweight, ambulatory with one-person assistance HEENT: Positive temporal wasting, positive icterus, extra-ocular movements grossly intact, mildly jaundice mucosal membranes Neck: supple, good range of motion, no carotid bruits, no palpable thyromegaly CV: normal S1 S2, no murmur, no rub, regular rhythm Pulm: CTA bilaterally, no w/r/r, good chest excursion GI: soft, NT, ND, + distended, + fluid wave : No CVA tenderness to percussion MS: poor muscle tone, no lower extremity edema bilaterally, good range of motion Neuro: ambulatory with 1 person assistance, no focal deficits, alert and oriented Psych: thoughts are fluent, mood is euthymic Derm: No lesions or rashes, skin is dry and intact Problem List Items Addressed This Visit Chronic kidney disease, stage 3b (CMS/HCC) Type 2 diabetes mellitus, with long-term current use of insulin (CMS/HCC) CARLOTTA (acute kidney injury) (CMS/HCC) Cirrhosis of liver with ascites (CMS/HCC) - Primary Ms. 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 She has worsening creatinine as an outpatient in the settingof poor oral nutrition, fluid losses from lactulose induced diarrhea and large volume paracentesis.She has had medication adjustments as an outpatient with avoidance of diuretics, PPI and Crestor. She continues with midodrine. The patient and family report that she is no longer able to care for herself and that her oral nutrition/oral fluid intake has been poor. Recent outpatient laboratory datashows worsening serum creatinine. Acute kidney injury on chronic kidney disease stage 3: - Review of her chart shows that her baseline serum creatinine is 1.3-1.5 mg/dL and her serum creatinine has been rising recently. - Balancing her volume status in the outpatient setting with her advanced liver disease is challenging. Her blood pressure is borderline on her midodrine and her oral nutrition/appetite has been poor. - Due to her challenging volume management and need for close monitoring, I have asked the patient to present to the [facility] emergency department for evaluation of kidney function, volume status, liver function and strategies to optimize her nutrition. 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 - However, her poor social support/independence is a barrier to active listing. - She requires weekly paracentesis every - She has had episodes of progressive hepatic encephalopathy and requires scheduled lactulose resulting in diarrhea/GI fluid losses. - She will continue with her midodrine - She is currently off of diuretics - She may benefit from hepatology/liver transplant evaluation upon ED presentation. Diabetes mellitus type 2: - On insulin She typically uses a Dexcom but does not have a machine recently. She had an episode of hypoglycemia last night with glucose level down to 63. She ate a snack but did not recheck her glucose level. - Family is concerned that her oral nutrition has been poor. In the setting of her multi-system disease, challenging volume status, worsening kidney function, advanced liver disease and uncontrolled diabetes, I have asked the patient to present to the emergency department for further evaluation. I have discussed her case with care providers at the [facility] and they are anticipating her arrival. - I think she needs routine check of her clearance, electrolytes and liver function. - Family requests assessment by social work due to the patient's inability to care for herself. Arnulfo Joy MD [facility] [1] Past Medical History: Diagnosis Date ADHD (attention deficit hyperactivity disorder) Allergic Anxiety disorder, unspecified Anxiety Bleeding gums Blood in urine Cataract Chronic kidney disease Cirrhosis ([facility]/HCC) Colon cancer screening 09/20/2019 Added automatically from request for surgery [id number] Coronary artery disease Depression 1996 Diabetes mellitus type 2 in obese 04/22/2015 Diabetic nephropathy ([facility]) Dry mouth GERD (gastroesophageal reflux disease) Headache [...] skin daily., Disp: 1.56 mL, Rfl: 2 B-D UF III MINI PEN NEEDLES 31G X 5 MM [facility], , Disp: , Rfl: Blood Glucose Monitoring Suppl (Blood Glucose Monitor System) w/Device kit, Test blood sugars twicea day. Dx E11.65, Disp: 1 kit, Rfl: 0 calcitriol (Rocaltrol) 0.25 MCG capsule, Take 1 capsule by mouth daily., Disp: 30 capsule, Rfl: 0 calcium carbonate EX (Tums E-X) 750 MG [...] Rfl: 1 ergocalciferol (Vitamin D-2) 1.25 MG (00152 UT) capsule, Take 1 capsule by mouth 1 time per week., Disp: 8 capsule, Rfl: 3 glucose blood test strip, Use to test [...] times a day., Disp: 180 tablet, Rfl:3 Multiple Vitamins-Minerals (COMPLETE WOMENS PO), Take 1 tablet by mouth in the morning., Disp: , Rfl: ondansetron ODT (Zofran-ODT) 8 MG disintegrating tablet, [...] a day., Disp: 60 tablet, Rfl: 11 Zegalogue 0.6 MG/0.6ML solution auto-injector, Inject 0.6 mg under the skin 1 time as needed (for extreme hypoglycemia) for up to 1 dose., Disp: 0.6 mL, Rfl: 2 zinc sulfate (Zincate) 220 (50 Zn) MG capsule, Take 1 capsule by mouth in the morning and 1 capsulebefore bedtime., Disp: 60 capsule, Rfl: 2 azelastine (Astelin) 0.1 % nasal spray, Administer 1 spray into each nostril 2 times a day. Use in each nostril as directed (Patient not taking: Reported on 06/25/2025), Disp: 30 mL, Rfl: 12 B-D ULTRAFINE III SHORT PEN 31G X 8 MM misc, , Disp: , Rfl: capsaicin (Zostrix) 0.025 % cream, Apply thin layer to feet nightly WITH GLOVES (Patient not taking: Reported on 06/25/2025), Disp: 56.6 g, Rfl: 1 fluticasone (Flonase) 50 MCG/ACT nasal spray, Administer 1 spray into each nostril daily. Shake gently. Before first use, prime pump. After use, clean tip and replace cap. (Patient not taking: Reported on 06/25/2025), Disp: 16 g, Rfl: 0 omeprazole (PriLOSEC) [address] capsule, Take 1 capsule by mouth 2 times a day. Do not crush or chew. (Patient not taking: Reported on 06/25/2025), Disp: 60 capsule, Rfl: 1 rosuvastatin (Crestor) 20 MG tablet, Take 1 tablet by mouth nightly. (Patient not taking: Reported on 06/25/2025), Disp: 90 tablet, Rfl: 2 documented in this encounter Plan of Treatment Upcoming Encounters Date Type Department Care Team (Late st Contact Info) Description 08/20/2025 9:30 AM EDT Clinical Support [facility] [place] [address] [address] 08/20/2025 10:30 AM EDT Social Work [facility] [address] [address] [place] [address] 08/20/2025 11:00 AM EDT Office Visit [facility] [address] [place] [phone] Jude Duque MD [address] [place] [address] 08/22/2025 11:15 AM EDT Appointment [facility] [address] [place] [phone] 08/22/2025 12:15 PM EDT Appointment [facility] [address] [place] [phone] 08/26/2025 1:00 PM EDT Office Visit [facility] Endocr[facility]ology [address] [place] [phone] Miranda Hobson, VP & GENERAL COUNSEL [address] [facility] [address] [place] [phone] 08/29/2025 10:00 AM EDT Appointment [facility] [address] [place] [address] 08/29/2025 11:00 AM EDT Appointment [facility] [address] [place] [address] 09/05/2025 10:00 AM EDT Appointment [facility] [address] [place] [address] 09/05/2025 11:00 AM EDT Appointment [facility] [address] [place] [phone] documented as of this encounter Visit Diagnoses Diagnosis Cirrhosis of liver with ascites, unspecified hepatic cirrhosis type- Primary CARLOTTA (acute kidney injury) Chronic kidney disease, stage 3b (CMS/HCC) Type 2 diabetes mellitus with hyperglycemia, with long-term current use of insulin documented in this encounter Additional Health Concerns Assessment Noted Time PHQ-9 Depression Total Score: 6 06/11/20 25 10:59 AM EDT A fall risk assessment has been complete d for the patient 06/25/2025 12:59 PM EDT A Body Mass Index follow-up plan has been documented for the patient 07/09/2025 10:39 AM EDT documented as of this encounter Care Teams Line O Scribe Operator Relationship Specialty Start Date End Date Alvarez Zimmer MD [address] [place] [address] PCP - General Family Medicine 12/07/24 Lea Fernando [address] [place] [address] Commercial Carpenter Endocrinology 08/29/24 Rachel Ray, VP & GENERAL COUNSEL [address] [place] [address] Nurse Practitioner Gastroenterology 09/24/24 Tamera Isabel, POWDER TRUCK DRIVER [employer]BASED TRANSFORMATION PROGRAM Licensed Practical Nurse 05/29/25 documented as of this encounter
--- OUTSIDE RECORDS SUMMARY | 2025-06-25 14:14 | XMS_ITS | Encounter Summary ---
Author Organization [facility] Address [address] [place] [address] Care Team Providers Care Hard Candy Spinner Name Role Phone Lea Fernando Unavailable [phone] Rachel Ray SECURITY INSTALLATION TECHNICIAN Unavailable [phone] Alvarez Ordaz MD Primary Care Provider [phone] Tamera Isabel CASTING MACHINE SET UP OPERATOR Unavailable Unavailabl Alina Jennings RN Unavailable Unavailab le Reason for Referral * Consultation (Routine) - Authorized Specialty Diagnoses / Procedures Referred By Contac t Referred To Contact Family Medicine Diagnoses CARLOTTA (acute kidney injury) Kayla Reed MD [address] [facility] [address] [place] [address] Phone: tel: fax: Referral ID Status Reason Start Date Expiration Date Visits Requested Visits Authorized [id number] Authorized Specialty Services Required 07/09/2025 01/08/2027 1 1 * Imaging (Routine) - Closed Specialty Diagnoses / Procedures Referred By Contac t Referred To Contact Radiology Diagnoses Other ascites Alcoholic cirrhosis of liver with ascites Procedures US Guided Abdominal Paracentesis Marianna Gordon, SECURITY INSTALLATION TECHNICIAN [address] [place] [address] Phone: tel: fax: Referral ID Status Reason Start Date Expiration Date Visits Re quested Visits Authorized [id number] Closed 06/14/2025 12/14/2026 1 1 * Imaging (Routine) - Closed Specialty Diagnoses / Procedures Referred By Contac audra Referred To Contact Radiology Diagnoses Pleural effusion Shortness of breath Procedures US Guided Thoracentesis Marianna Gordon APRN [address] [place] [address] Phone: tel: fax: Referral ID Status Reason Start Date Expiration Date Visits Re quested Visits Authorized [id number] Closed 06/14/2025 12/14/2026 1 1 Reason for Visit * Reason Comments Abnormal Lab Creatinine mentioned by PT. * Auth/Cert (Routine) Specialty Diagnoses / Procedures Referred By Eder zhu Referred To Contact Diagnoses CARLOTTA (acute kidney injury) Chilo Morales MD [address] [place] [id number] Phone: tel: fax: [facility] [address] [place] [address] Phone: tel: Referral ID Status Reason Start Date Expiration Date Visits Re quested Visits Authorized [id number] 1 1 Encounter Details Date Type Department Care Team (Late st Contact Info) Description 06/25/2025 2:14 PM EDT - 07/09/2025 1:19 PM EDT Hospital Encounter [facility] [address] [place] [address] Kadie Mauro MD [address] [place] [address] Chilo Morales MD [address] [address] Fabiana Cunningham MD [address] [facility] [address] [place] [address] Kayla Reed MD [address] [address] CARLOTTA (acute kidney injury) (CMS/HCC) [...] do you attend [facility] or restorationist services? Patient unable to answer 01/10/2025 Do [...] How often do you attend chur or restorationist services? Never 05/29/2025 Do you belong to [...] more drinks on one occasion? Never 06/25/[facility] [...] in a senior care (including now)? No 06/26/2025 CAGE ASSESSMENT Answer [...] drink first t kennedy in the morning (EYE-PROGRAM SUPPORT CLERK) to steady your nerves or to get rid of a hangover? 0 06/25/2025 CAGE Questionnaire Score 0 025 Utilities Answer Date Recorded In the past 12 months has th e electric, gas, oil, or water [employer] threatened to shut off services in your [...] 1 03/01/2025 ergocalciferol (Vitamin D-2) 1.25 MG (81824 UT) capsuleIndication s:Vitamin D deficiency Take 1 [...] Note Monika Ordaz 64 y.o. female CSN: [id number] Admission: 06/25/2025 2:14 PM Primary Problem: Cirrhosis of liver with ascites (CMS/HCC) Primary Supervisor Inspection Room: Primary Caregiver: Self Assistance Available at Discharge: Current Outpatient/Agency/Support Group: DME, [facility] facility Availability of Care Givers (#Hours): 24 hours Family/Supervisor Inspection Room(s) Willingness Assessed to care for patient at home: Yes Family/Supervisor Inspection Room(s) Readiness Assessed to care for patient at home: Yes Housing Circumstances-Z Codes: Housing Circumstances (select all that apply): Low Income (101-300% Federal Poverty Guidlines) - Z596 Discharge Facility/Level of Care Needs: Discharge Facility/Level of Care Needs: 3-Assisted Facility Patient/Family Anticipated Services at Transition: Patient/Family Anticipated Services at Transition: [facility] DME/Equipment Needed after Discharge: Equipment Currently Used at Home: walker, rollator, Cpap Medicare Documentation: Medicare Second Notice?: Yes Date Second Notice Completed: 07/09/25 Time Second Notice Completed: 841 Medicare Second Notice Recieved By: patient Follow-up: Alvarez Ordaz [place] [id number] Discharge Transportation: Transportation Anticipated: family or friend [...] ready for discharge. Pt was discharged to [facility] in [place] for SNF/LTC. Pts was transported to the [...] of Care Reviewed With: patient Taken 07/07/2025 0299 Outcome Evaluation: pt will partcipate in plan [...] Ongoing, Progressing Intervention: Promote Activity and Functional Bethesda Flowsheets (Taken 07/09/2025 0800) Activity Assistance Provided: assistance, stand-by * Consults - Yudith Coates RD - 07/09/2025 9:38 AM EDT Adult Nutrition Evaluation Note Monika Ordaz 64 y.o. female CSN: [id number] Room/Bed 723/723A Nutrition evaluation type: follow-up Reason for evaluation: provider consult Hospital course: 64y/o female admitted 06/25 for CARLOTTA on CKD and inability to care for herself. S/p paracentesis and thoracentesis on 07/04. Past medical/ surgical history: Past Medical History[1] Surgical History[2] Social history: None, no restorationist needs Additional comments: 07/09: Pt seen at bedside. Reported tolerating PO as best as she can given limited appetite r/t cirrhosis with ascites. Pt has tried Boost supplements but does not enjoy them as she does not like the mouthfeel of the original supplements nor does she enjoy the flavors of Boost Breeze. Pt voiced some anxiety about discharging to [facility] today. Encouraged pt to eat in the dining room with otherresidents, ask about food items that are offered so she may find items she likes and tolerates, anddiscussed that the [facility] may have supplements like Magic Cups that the pt may find more favorable. Diet Education Provided: Yes (07/03: diet edu for CKD, cirrhosis, DM) Vitals and Basic Assessment: BP: 103/61 Temp: 36.8 ??C (98.2 ??F) Oxygen Therapy: None (Room air) O2 Delivery Method: CPAP/Bi-PAP mask Dell Coma Scale Score: 15 Edd Scale Score: [...] (Calculated): 29.57 Weight Evaluation: Overweight (BMI 25-29.9) [place] Body Weight (kg): 56.8 Percent [place] Body Weight: 142 Adjusted Body Weight (kg): [...] oz) Estimated Needs: Kcal/ K-35 Kcal Provided: 9656-0125 Kcal Needs Based On: Adjusted weight (63 kg) Gm Protein/ Kg : 1.2-1.5 Protein Provided: 76-95 Protein Needs Based On: Adjusted weight (63 kg) Fluid Provided: 1 ml/kcal or per MD team Metabolic Cart Study Results: Current Nutrition Intake: Diet Supplements: Boost Breeze Diet Order: Adult Diet Diet Texture: Regular Adult Carbohydrate Restriction: Consistent CHO 2 (4415-1584 Deniz, 80 g/meal) Adult Sodium Restriction: 2,000 [...] 09/20/2019 Added automatically from request for surgery [id number] Coronary artery disease Depression 1995 Diabetes mellitus type 2 in obese 04/22/2015 Diabetic nephropathy ([facility]) Dry mouth Epigastric pain 08/02/2019 ETD (eustachian tube dysfunction) 07/13/2018 GERD (gastroesophageal reflux disease) Headache Heart murmur Hepatic encephalopathy ([facility]/HCC) 10/14/2024 HL (hearing loss) Hypoparathyroidism Inflammatory bowel [...] 1979 BLADDER SURGERY N/A Bladder surgery from [facility] BREAST BIOPSY 2011 BREAST SURGERY 2010 BUNIONECTOMY Right CATARACT EXTRACTION Bilateral 2016 CHOLECYSTECTOMY 1979 ESOPHAGOGASTRODUODENOSCOPY HYSTERECTOMY N/A Hysterectomy from [facility] KNEE SURGERY Bilateral ORAL SURGERY N/A Oral surgery from [facility] OTHER SURGICAL HISTORY 2014 ROOT CANAL WISDOM [...] capsule 2 ergocalciferol (Vitamin D-2) 1.25 MG (72839 UT) capsule Take 1 capsule by mouth [...] Alvarez Ordaz MD [address] / [place] [address] Referring provider name and address: No referring [...] to care for self. On arrival to [facility], patient promptly evaluated by FM [...] vit D 1000 U was continued. Weekly 51625 vit D was not resumed during hospital [...] off oftransplant list in favor of pursuing termite control technician care placement. MELD improved to 21. #Other neutropenia #Pancytopenia Baseline WBC is 4.0 and baseline RBC was 3.0. Most recent WBC was 3.24 with 1.84 absolute neutrophils and most recent RBC was 2.67. Labs were monitored throughout the patient's hospital stay. [id number] was initiated for DVT prophylaxis. Blood smear [...] patient was amenable to going to a [facility] facility. 06/28, patient had an episode of [...] nephrology appointment due to concern for CARLOTTA. DEPUTY CONTROLLER consult ordered. DEPUTY CONTROLLER saw patient and determined no overt s/s [...] mouth in the morning. ergocalciferol 1.25 MG (47262 UT) capsule Commonly known as: Vitamin D-2 [...] Medications These medications were sent to [facility] [place], [place] - [address] [address] cetirizine 10 MG tablet ergocalciferol 1.25 MG (25348 UT) capsule These medications were sent to [facility] [address] [place] [address] [address] [place] [address] prochlorperazine 5 MG tablet Information about where [...] stage 3b (CMS/HCC) Coronary artery disease of [place] artery of [place] heart with stable angina pectoris (CMS/HCC) Diabetic [...] A 07/23/2025 12:00 PM [facility] 10:30 AM [facility] 07/25/2025 11:30 AM IR US-1 [facility] 07/31/2025 9:00 AM Alvarez Ordaz MD [id number] [place] 08/20/2025 9:30 AM TRANSPLANT LAB [facility] 08/20/2025 10:30 AM Deysi Ortega [facility] 08/20/2025 11:00 AM Jude Duque MD [facility] Test Results Pending At Discharge No [...] Behavior normal. Discharge Disposition/Condition Disposition: SNF at [facility] Condition: Stable (s/sx potential problems absent or manageable) I spent >30 minutes of patient care and instruction time in preparation for this discharge. Juliane Rodriguez, MS4 Cosigned by Kayla Reed MD at 07/09/2025 12:26 PM EDT Associated attestation - Kayla Reed MD - 07/09/2025 12:26 PM EDT I saw and evaluated the patient with the medical/HEALTHCARE INSURANCE SALES AGENT/PA student. I discussed the case with the medical/HEALTHCARE INSURANCE SALES AGENT/PA student and agree with the findings and [...] Ongoing, Progressing Intervention: Promote Activity and Functional Bethesda Flowsheets (Taken 07/08/20251999) Activity Assistance Provided: assistance, [...] Directive/Living Will: Yes Health Care Power of Electrical Drafter: No Communication of Medical Status/Prognosis: Ms. Ordaz verified that she has completed advance directive designating her healthcare surrogates with the social work supervisor. She is pending placement in nursing facility [...] 1:55 PM EDTAssociated Problem(s): Serum ammonia increased ([facility]) - Ammonia 146 PLAN - [...] Fears or Concerns: sad about going to [facility] Goal: Absence of Hospital-Acquired Illness or Injury [...] Ongoing, Progressing Intervention: Promote Activity and Functional Bethesda Flowsheets (Taken 07/08/2025 0800) Activity Assistance Provided: assistance, stand-by * Assessment & Plan Note - Juliane Rodriguez - 07/08/2025 11:14 AM EDTAssociated Problem(s): Type 2 diabetes mellitus, with long-term current use of insulin ([facility]) - Glucose 172 PLAN - [...] Mobility Bed Mobility Exam: Scooting/Bridging Level of Bethesda: Stand-by assist Physical/Nonphysical Assist: Supervision Assistive Device: Bed rails Bed Mobility Exam: Supine to Sit Level of Bethesda: Stand-by assist Physical/Nonphysical Assist: Supervision, HOB elevated Assistive Device: Bed rails Bed Mobility Exam: Sit to Supine Level of Bethesda: Stand-by assist Physical/Nonphysical Assist: Supervision, HOB elevated Assistive Device: Bed rails Transfers Transfer Exam: Sit to stand Level of Bethesda: Stand-by assist Physical/Nonphysical Assist: Supervision Assistive Device: Rollator Transfer Exam: Stand to Sit Level of Bethesda: Stand-by assist Physical/Nonphysical Assist: Supervision Assistive Device: [...] Note Monika Ordaz 64 y.o. female CSN: [id number] Admission: 06/25/2025 2:14 PM Primary Problem: Acute kidney injury superimposed on stage 3b chronic kidney disease (CMS/HCC) Additional Comments SW met with the Family Medicine team to discuss pts POC. Pt is medically ready for discharge at this time. Pt is pending insurance approval for SNF at [facility] in [place]. SW spoke with liaison, Ro, and she [...] /Dying Interventions: Interventions Provided: Emotional support, Identify restorationist/ spiritual coping, Prayer, SupportiveListening Pastoral Care Outcomes: [...] AM EDTAssociated Problem(s): Coronary artery disease of [place] artery of [place] heart with stable angina pectoris (CMS/HCC) - [...] follow up outpatient * Progress Notes - Jluiane Rodriguez - 07/08/2025 8:43 AM EDT FAMILY [...] mellitus, with long-term current use of insulin ([facility]/HCC) Diabetic peripheral neuropathy ([facility]) - Glucose 172 PLAN - Continue Glargine 24 U daily + resistant SSI - Continue to monitor glucose trends Dysphagia Heartburn - Reflux stable PLAN - Continue to hold omeprazole Serum ammonia increased (CMS/[facility]) - Ammonia 146 PLAN - Increase home Lactulose to 30 g TID - Recheck ammonia if neurologic change suspected Hypomagnesemia - Mg 1.9 PLAN - Continue magnesium oxide 400 mg daily - Check Levels Daily Chronic obstructive pulmonary disease ([facility]/HCC) JONATHAN treated with BiPAP - Chronic; on home BiPAP, per RT recs Coronary artery disease of [place] artery of [place] heart with stable angina pectoris ([facility]) Hyperlipidemia - Chronic; Continue to [...] saw and evaluated the patient with the medical/HEALTHCARE INSURANCE SALES AGENT/PA student. I discussed the case with the medical/HEALTHCARE INSURANCE SALES AGENT/PA student and agree with the findings and [...] Ongoing, Progressing Intervention: Promote Activity and Functional Bethesda Flowsheets (Taken 07/07/20251999) Activity Assistance Provided: assistance, [...] * Assessment & Plan Note - Marcelo Pihcardo - 07/07/2025 12:59 PM EDT Associated Problem(s): [...] mellitus, with long-term current use of insulin ([facility]) - Glucose 151 PLAN - Continue Glargine 24 U daily + resistant SSI - Continue to monitor glucose trends * Assessment & Plan Note - Marcelo Pichardo - 07/07/2025 12:59 PM EDT Associated Problem(s): Diabetic peripheral neuropathy ([facility]) - Glucose 151 PLAN - Continue Glargine [...] PM EDT Associated Problem(s): Serum ammonia increased ([facility]) - Last ammonia stable at [...] EDT Associated Problem(s): Chronic obstructive pulmonary disease ([facility]) - Chronic; on home BiPAP, per RT recs * Assessment & Plan Note - Marcelo Pichardo - 07/07/2025 12:59 PM EDT Associated Problem(s): JONATHAN treated with BiPAP - Chronic; on home BiPAP, per RT recs * Assessment & Plan Note - Marcelo Pichardo - 07/07/2025 12:59 PM EDT Associated Problem(s): Coronary artery disease of [place] artery of [place] heart with stable angina pectoris ([facility]) - Chronic; Continue to hold Crestor * [...] mellitus, with long-term current use of insulin ([facility]) Diabetic peripheral neuropathy ([facility]) - Glucose 151 PLAN - Continue Glargine 24 U daily + resistant SSI - Continue to monitor glucose trends Dysphagia Heartburn - Reflux stable PLAN - Continue to hold omeprazole Serum ammonia increased ([facility]) - Last ammonia stable at 61 on 06/30 PLAN - Continue home Lactulose - Recheck ammonia if neurologic change suspected Hypomagnesemia - Mg 1.9 PLAN - Continue magnesium oxide 400 mg daily - Check Levels Daily Chronic obstructive pulmonary disease ([facility]) JONATHAN treated with BiPAP - Chronic; on home BiPAP, per RT recs Coronary artery disease of [place] artery of [place] heart with stable angina pectoris ([facility]) Hyperlipidemia - Chronic; Continue to [...] saw and evaluated the patient with the medical/HEALTHCARE INSURANCE SALES AGENT/PA student. I discussed the case with the medical/HEALTHCARE INSURANCE SALES AGENT/PA student and agree with the findings and [...] Present: No Family/Caregiver: Mother, Other (Specify) (Sister) Musical Instrument Maker: Not Applicable Presentation Oxygen Therapy: None (Room [...] Mobility Bed Mobility Exam: Scooting/Bridging Level of Bethesda: Stand-by assist Physical/Nonphysical Assist: Supervision Assistive Device: Bed rails Bed Mobility Exam: Supine to Sit Level of Bethesda: Stand-by assist Physical/Nonphysical Assist: Supervision, HOB elevated Assistive Device: Bed rails Bed Mobility Exam: Sit to Supine Level of Bethesda: Contact guard Physical/Nonphysical Assist: Supervision, HOB elevated Assistive Device: Bed rails Transfers Transfer Exam: Sit to stand Level of Bethesda: Contact guard Physical/Nonphysical Assist: Supervision, Verbal Cues, Minimal cues Assistive Device: Rollator Transfer Exam: Stand to Sit Level of Bethesda: Stand-by assist Physical/Nonphysical Assist: Supervision, Verbal Cues, Minimal cues Assistive Device: Rollator Toilet Transfer Level of Bethesda: Contact guard Physical/Nonphysical Assist: Supervision, Verbal Cues, [...] mellitus, with long-term current use of insulin ([facility]) - Glucose 128 PLAN - [...] reviewed * Assessment & Plan Note - Julinae Rodriguez - 07/06/2025 7:03 AM EDTAssociated Problem(s): Physical debility - Patient at this time has elected to pursue Halfway Care placement and would like to speak [...] at this time has elected to pursue Halfway Care placement and would like to speak [...] at this time has elected to pursue Halfway Care placement and would like to speak [...] AM EDTAssociated Problem(s): Chronic obstructive pulmonary disease ([facility]/HCC) - Chronic; on home BiPAP, per RT recs * Assessment & Plan Note - Juliane Rodriguez - 07/06/2025 7:03 AM EDTAssociated Problem(s): JONATHAN treated with BiPAP - Chronic; on home BiPAP, per RT recs * Assessment & Plan Note - Juliane Rodriguez - 07/06/2025 7:03 AM EDTAssociated Problem(s): Coronary artery disease of [place] artery of [place] heart with stable angina pectoris ([facility]) - Chronic; Continue to hold Crestor * [...] at this time has elected to pursue Clinical Rehabilitation Coordinator Care placement and would like to speak with palliative care to learn more about their services - SW working to find LTC facility placement - palliative consulted PLAN - Delirium protocols - Continue Up to Chair TID, q4 turns - Ongoing GOC discussions Type 2 diabetes mellitus, with long-term current use of insulin ([facility]) Diabetic peripheral neuropathy ([facility]) - Glucose 128 PLAN - Continue Glargine 24 U daily + resistant SSI - Continue to monitor glucose trends Dysphagia Heartburn - Reflux stable PLAN - Continue to hold omeprazole Serum ammonia increased ([facility]) - Last ammonia stable at 61 on 06/30 PLAN - Continue home Lactulose - Recheck ammonia if neurologic change suspected Hypomagnesemia - Mg 1.7 overnight - Patient received IV magnesium replacement PLAN - Continue magnesium oxide 400 mg daily - Check Levels Daily Chronic obstructive pulmonary disease ([facility]) JONATHAN treated with BiPAP - Chronic; on home BiPAP, per RT recs Coronary artery disease of [place] artery of [place] heart with stable angina pectoris ([facility]) Hyperlipidemia - Chronic; Continue to [...] saw and evaluated the patient with the medical/HEALTHCARE INSURANCE SALES AGENT/PA student. I discussed the case with the medical/HEALTHCARE INSURANCE SALES AGENT/PA student and agree with the findings and [...] Note Monika Ordaz 64 y.o. female CSN: [id number] Admission: 06/25/2025 2:14 PM Primary Problem: Acute [...] chart. JHONNY sent updated PT/OT notes to [facility] to begin precert. SW [...] Present: Yes Family/Caregiver: Mother, Other (Specify) (sister) Musical Instrument Maker: Not Applicable Presentation Oxygen Therapy: None (Room [...] Mobility Bed Mobility Exam: Scooting/Bridging Level of Bethesda: Stand-by assist (to EOB) Physical/Nonphysical Assist: Supervision Assistive Device: Bed rails Bed Mobility Exam: Supine to Sit Level of Bethesda: Minimum assist (75% patient's effort) Physical/Nonphysical Assist: Supervision, HOB elevated, Minimal cues, Verbal Cues Assistive Device: Bed rails, Other (LITIGATION LEGAL SECRETARY) Transfers Transfer Exam: Sit to stand Level of Bethesda: Stand-by assist Physical/Nonphysical Assist: Supervision, Verbal Cues, Minimal cues Assistive Device: Rollator Transfer Exam: Stand to Sit Level of Bethesda: Stand-by assist Physical/Nonphysical Assist: Supervision, Verbal Cues, Minimal cues Assistive Device: Rollator Toilet Transfer Level of Bethesda: Stand-by assist Physical/Nonphysical Assist: Supervision, Minimal cues, [...] educated pt on the use of a saw tailer for ease of donning pull ups and pants. Pt stated, I never thought of that, and expressed interest in purchasing a saw tailer. Toileting Toileting Level of Assistance: SBA, Setup [...] mellitus, with long-term current use of insulin ([facility]) - Glucose 147 PLAN - Continue Glargine 24 U daily + resistant SSI - Continue to monitor glucose trends * Assessment & Plan Note - Juliane Rodriguez - 07/05/2025 1:06 PM EDTAssociated Problem(s): Diabetic peripheral neuropathy ([facility]) - Glucose 147 PLAN - [...] Present: Yes Family/Caregiver: Mother, Other (Specify) (Sister) Musical Instrument Maker: Not Applicable Presentation Oxygen Therapy: None (Room [...] Mobility Bed Mobility Exam: Scooting/Bridging Level of Bethesda: Stand-by assist Physical/Nonphysical Assist: Supervision Assistive Device: Bed rails Bed Mobility Exam: Supine to Sit Level of Bethesda: Stand-by assist Physical/Nonphysical Assist: Supervision, HOB elevated Assistive Device: Bed rails Bed Mobility Exam: Sit to Supine Level of Bethesda: Stand-by assist Physical/Nonphysical Assist: Supervision, Verbal Cues, HOB elevated, Minimal cues Assistive Device: Bed rails Transfers Transfer Exam: Sit to stand Level of Bethesda: Stand-by assist Physical/Nonphysical Assist: Supervision, Verbal Cues, Minimal cues Assistive Device: Rollator Transfer Exam: Stand to Sit Level of Bet[place]da: Stand-by assist Physical/Nonphysical Assist: Supervision, Verbal Cues, [...] at this time has elected to pursue Halfway Care placement and would like to speak [...] at this time has elected to pursue Clinical Rehabilitation Coordinator Care placement and would like to speak [...] at this time has elected to pursue Halfway Care placement and would like to speak [...] AM EDTAssociated Problem(s): Coronary artery disease of [place] artery of [place] heart with stable angina pectoris (CMS/HCC) - [...] FAMILY MEDICINE Daily Progress Note Patient: Monika rOdaz 64 y.o. Subjective Monika Ordaz is a [...] superimposed on stage 3b chronic kidney disease ([facility]/HCC) Chronic kidney disease, stage 3b ([facility]/HCC) Cirrhosis of liver with ascites ([facility]/HCC) Hx of spontaneous bacterial peritonitis Pleural effusion [...] at this time has elected to pursue Halfway Care placement and would like to speak with palliative care to learn more about their services - SW working to find LTC facility placement - palliative consulted PLAN - Delirium protocols - Continue Up to Chair TID, q4 turns - Ongoing GOC discussions Type 2 diabetes mellitus, with long-term current use of insulin ([facility]) Diabetic peripheral neuropathy ([facility]) - Glucose 147 PLAN - Continue Glargine 24 U daily + resistant SSI - Continue to monitor glucose trends Dysphagia Heartburn - Reflux stable PLAN - Continue to hold omeprazole Serum ammonia increased ([facility]) - Last ammonia stable at 61 on 06/30 PLAN - Continue home Lactulose - Recheck ammonia if neurologic change suspected Hypomagnesemia - Mg 1.8 overnight PLAN - Continue magnesium oxide 400 mg daily - Check Levels Daily Chronic obstructive pulmonary disease (CMS/HCC) JONATHAN treated with BiPAP - Chronic; on home BiPAP, per RT recs Coronary artery disease of [place] artery of [place] heart with stable angina pectoris (CMS/HCC) Hyperlipidemia [...] Absence of Fall and Fall-Related Injury 07/05/2025 0501 by Rochelle Xiong LPN Outcome: Ongoing, Progressing [...] Note Monika Ordaz 64 y.o. female CSN: [id number] Admission: 06/25/2025 2:14 PM Primary Problem: Acute [...] LTC. Pt would prefer to be near [place] due to her mother and sister being in [place]. JHONNY will continue to follow and assist. [...] at this time has elected to pursue Clinical Rehabilitation Coordinator Care placement and would like to speak [...] at this time has elected to pursue Clinical Rehabilitation Coordinator Care placement and would like to speak [...] at this time has elected to pursue Halfway Care placement and would like to speak [...] mellitus, with long-term current use of insulin ([facility]) - Last POCT glucose 103 PLAN - Continue Glargine 24 U daily + resistant SSI - Continue to monitor glucose trends * Assessment & Plan Note - Rebekah Segura MD - 07/04/2025 9:28 AM EDT Associated Problem(s): Diabetic peripheral neuropathy ([facility]) - Last POCT glucose 103 PLAN - [...] AM EDT Associated Problem(s): Serum ammonia increased ([facility]) - Last ammonia stable at [...] EDT Associated Problem(s): Chronic obstructive pulmonary disease ([facility]) - Chronic; on home BiPAP, per RT recs * Assessment & Plan Note - Rebekah Segura MD - 07/04/2025 9:28 AM EDT Associated Problem(s): JONATHAN treated with BiPAP - Chronic; on home BiPAP, per RT recs * Assessment & Plan Note - Rebekah Segura MD - 07/04/2025 9:28 AM EDT Associated Problem(s): Coronary artery disease of [place] artery of [place] heart with stable angina pectoris ([facility]) - Chronic; Continue to hold Crestor * [...] * Progress Notes - Maria Dolores Ontiveros, SECURITY INSTALLATION TECHNICIAN, DNP - 07/04/2025 9:08 AM EDT 07/04/25 [...] care of this patient. Maria Dolores Ontiveros, SECURITY INSTALLATION TECHNICIAN, DNP Interventional Radiology [phone] [1] Past Medical History: Diagnosis Date ADHD (attention deficit hyperactivity disorder) Allergic Anxiety disorder, unspecified Anxiety Bleeding gums Blood in urine Cataract Chronic kidney disease Cirrhosis (CMS/HCC) Colon cancer screening 09/20/2019 Added automatically from request for surgery [id number] Coronary artery disease Depression 1995 Diabetes mellitus [...] 1979 BLADDER SURGERY N/A Bladder surgery from [facility] BREAST BIOPSY 2011 BREAST SURGERY 2010 BUNIONECTOMY Right CATARACT EXTRACTION Bilateral 2016 CHOLECYSTECTOMY 1979 ESOPHAGOGASTRODUODENOSCOPY HYSTERECTOMY N/A Hysterectomy from [facility] KNEE SURGERY Bilateral ORAL SURGERY N/A Oral surgery from [facility] OTHER SURGICAL HISTORY 2015 ROOT CANAL WISDOM TOOTH EXTRACTION [3] Social History Tobacco Use Smoking status: Never Passive exposure: Never Smokeless tobacco: Never Vaping Use Vaping status: Never Used Substance Use Topics Alcohol use: Not Currently Drug use: Never [4] No Known Allergies [5] Current Facility-Administered Medications: albumin human 25 % infusion 12.5 g, 12.5 g, Intravenous, q15 min PRN, Gabrielaeks, Marianna N, SECURITY INSTALLATION TECHNICIAN benzonatate (Tessalon) capsule 100 mg, 100 mg, [...] at this time has elected to pursue Halfway Care placement and would like to speak with palliative care to learn more about their services - SW working to find LTC facility placement - palliative consulted PLAN - Delirium protocols - Continue Up to Chair TID, q4 turns - Ongoing GOC discussions Type 2 diabetes mellitus, with long-term current use of insulin (CMS/HCC) Diabetic peripheral neuropathy ([facility]/HCC) - Last POCT glucose 103 PLAN - [...] per RT recs Coronary artery disease of [place] artery of [place] heart with stable angina pectoris ([facility]) Hyperlipidemia - Chronic; Continue to [...] LTC Placement Rebekah Segura MD Psychiatry, PGY-1 [facility] Cosigned by Fabiana Cunningham MD at [...] with clarification of goals of care PC care team assistant(s) at this encounter: Nurse Practitioner Requesting Service: [...] is no recent study available for direct oapa-[id number] comparison. TECHNIQUE: Multiple axial CT images were [...] stage 3b (CMS/HCC) Coronary artery disease of [place] artery of [place] heart with stable angina pectoris (CMS/HCC) Diabetic [...] to proceed with NH placement in either [place] or [place] to be close to her sisterand her friends. She is interested in completing Living will and HCS while here. Has several questions regarding selling property and her insurance. - PLAN NURSE to complete living will -Will contact Case management Number and complexity of problems addressed is high, including acute illness or injury that poses athreat to life or bodily function. Risk of complications and/or morbidity or mortality of patient management is high due to need for hospitalization for stabilization and care. Palliative and Supportive Care Kandice Romano SECURITY INSTALLATION TECHNICIAN # [phone] or Secure chat [1] Past Medical History: Diagnosis Date ADHD (attention deficit hyperactivity disorder) Allergic Anxiety disorder, unspecified Anxiety Bleeding gums Blood in urine Cataract Chronic kidney disease Cirrhosis (CMS/HCC) Colon cancer screening 09/20/2019 Added automatically from request for surgery [id number] Coronary artery disease Depression 1996 Diabetes mellitus [...] 1979 BLADDER SURGERY N/A Bladder surgery from [facility] BREAST BIOPSY 2011 BREAST SURGERY 2010 BUNIONECTOMY Right CATARACT EXTRACTION Bilateral 2016 CHOLECYSTECTOMY 1980 ESOPHAGOGASTRODUODENOSCOPY HYSTERECTOMY N/A Hysterectomy from [facility] KNEE SURGERY Bilateral ORAL SURGERY N/A Oral surgery from [facility] OTHER SURGICAL HISTORY 2015 ROOT CANAL WISDOM TOOTH EXTRACTION [3] Social History Tobacco Use Smoking status: Never Passive exposure: Never Smokeless tobacco: Never Vaping Use Vaping status: Never Used Substance Use Topics Alcohol use: Not Currently Drug use: Never [4] Family History Problem Relation Name Age of Onset Arthritis Mother Karime Singlteary Diabetes Mother Karime Singletary Hypertension Mother Karime [...] currently undergoing evaluation for liver transplant. Decompensated [facility] Cirrhosis (POA) Ascites (POA) EV [...] capsule 2 ergocalciferol (Vitamin D-2) 1.25 MG (49599 UT) capsule Take 1 capsule by mouth [...] - Any questions with scheduling please call [phone] - Please place orders for desired fluid studies to be sent for analysis prior to procedure Thank you for allowing us to participate in the care of this patient. Micheal Glasgow, SECURITY INSTALLATION TECHNICIAN, DNP Interventional Radiology [phone] [1] Past Medical History: Diagnosis Date ADHD (attention deficit hyperactivity disorder) Allergic Anxiety disorder, unspecified Anxiety Bleeding gums Blood in urine Cataract Chronic kidney disease Cirrhosis (CMS/HCC) Colon cancer screening 09/20/2019 Added automatically from request for surgery [id number] Coronary artery disease Depression 1996 Diabetes mellitus [...] 1979 BLADDER SURGERY N/A Bladder surgery from [facility] BREAST BIOPSY 2011 BREAST SURGERY 2009 BUNIONECTOMY Right CATARACT EXTRACTION Bilateral 2016 CHOLECYSTECTOMY 1979 ESOPHAGOGASTRODUODENOSCOPY HYSTERECTOMY N/A Hysterectomy from [facility] KNEE SURGERY Bilateral ORAL SURGERY N/A Oral surgery from [facility] OTHER SURGICAL HISTORY 2015 ROOT CANAL WISDOM TOOTH EXTRACTION [3] Social History Tobacco Use Smoking status: Never Passive exposure: Never Smokeless tobacco: Never Vaping Use Vaping status: Never Used Substance Use Topics Alcohol use: Not Currently Drug use: Never [4] No Known Allergies [5] Current Facility-Administered Medications: albumin human 25 % infusion 12.5 g, 12.5 g, Intravenous, q15 min PRN, Marianna Gordon N, SECURITY INSTALLATION TECHNICIAN albumin human 25 % infusion 87.5 g, [...] Note Monika Ordaz 64 y.o. female CSN: [id number] Room/Bed 723/723A Nutrition evaluation type: follow-up Reason for evaluation: provider consult; pt request for diet education Hospital course: 64y/o female admitted 06/25 for CARLOTTA on CKD and inability to care for herself. Past medical/ surgical history: Past Medical History[1] Surgical History[2] Social history: None, no restorationist needs Additional comments: 07/03: Pt seen at [...] agreeable to snacks TID and trial of [place] Boost [facility] to meet increased nutrient needs. Provided [...] reading nutrition facts labels. Discussed how the fpc she discharges to would likely monitor these [...] 30.12 Weight Evaluation: Obese-Class 1 (BMI 30-34.9) [place] Body Weight (kg): 56.8 Percent [place] Body Weight: 145 Adjusted Body Weight (kg): [...] oz) Estimated Needs: Kcal/ K-35 Kcal Provided: 4262-1931 Kcal Needs Based On: Adjusted weight (63 kg) Gm Protein/ Kg : 1.2-1.5 Protein Provided: 76-95 Protein Needs Based On: Adjusted weight (63 kg) Fluid Provided: 1 ml/kcal or per MD team Metabolic Cart Study Results: Current Nutrition Intake: Diet Supplements: None Diet Order: Adult Diet Diet Texture: Regular Adult Carbohydrate Restriction: Consistent CHO 2 (2178-1452 Deniz, 80 g/meal) Fat Restriction: (-) Electrolyte [...] greater menu options as elytes WNLs. Trial [place] Boost [facility] x 1 daily. Add Snacks [...] 09/20/2019 Added automatically from request for surgery [id number] Coronary artery disease Depression 1996 Diabetes mellitus [...] 1979 BLADDER SURGERY N/A Bladder surgery from [facility] BREAST BIOPSY 2011 BREAST SURGERY 2010 BUNIONECTOMY Right CATARACT EXTRACTION Bilateral 2016 CHOLECYSTECTOMY 1979 ESOPHAGOGASTRODUODENOSCOPY HYSTERECTOMY N/A Hysterectomy from [facility] KNEE SURGERY Bilateral ORAL SURGERY N/A Oral surgery from [facility] OTHER SURGICAL HISTORY 2014 ROOT CANAL WISDOM [...] capsule 2 ergocalciferol (Vitamin D-2) 1.25 MG (55011 UT) capsule Take 1 capsule by mouth [...] at this time has elected to pursue Halfway Care placement and would like to speak [...] at this time has elected to pursue Halfway Care placement and would like to speak [...] at this time has elected to pursue Halfway Care placement and would like to speak [...] mellitus, with long-term current use of insulin ([facility]) - Last POCT glucose 150 - 2 Units correction in last 24h none overnight PLAN - Continue Glargine 24 U daily + resistant SSI - Continue to monitor glucose trends * Assessment & Plan Note - Marcelo Pichardo - 07/03/2025 6:57 AM EDTAssociated Problem(s): Diabetic peripheral neuropathy ([facility]) - Last POCT glucose 150 [...] 6:57 AM EDTAssociated Problem(s): Serum ammonia increased ([facility]) - Last ammonia stable at [...] AM EDTAssociated Problem(s): Chronic obstructive pulmonary disease ([facility]/HCC) - Chronic; on home BiPAP, per RT recs * Assessment & Plan Note - Marcelo Pichardo - 07/03/2025 6:57 AM EDTAssociated Problem(s): JONATHAN treated with BiPAP - Chronic; on home BiPAP, per RT recs * Assessment & Plan Note - Marcelo Pichardo - 07/03/2025 6:57 AM EDTAssociated Problem(s): Coronary artery disease of [place] artery of [place] heart with stable angina pectoris ([facility]/HCC) - Chronic; Continue to hold Crestor * [...] time since making a decision to pursue alf care and come off the transplant list. [...] at this time has elected to pursue Clinical Rehabilitation Coordinator Care placement and would like to speak with palliative care to learn more about their services - L Leg discomfort is improved PLAN - Delirium protocols - Continue Up to Chair TID, q4 turns - SW to meet with patient to discuss options further - Consult Palliative care - Ongoing GOC discussions Type 2 diabetes mellitus, with long-term current use of insulin ([facility]) Diabetic peripheral neuropathy ([facility]) - Last POCT glucose 150 - 2 Units correction in last 24h none overnight PLAN - Continue Glargine 24 U daily + resistant SSI - Continue to monitor glucose trends Dysphagia Heartburn - Reflux stable PLAN - Continue to hold omeprazole Serum ammonia increased ([facility]/HCC) - Last ammonia stable at 61 on 06/30 PLAN - Continue home Lactulose - Recheck ammonia if neurologic change suspected Hypomagnesemia - Mg 2.0 today PLAN - Continue magnesium oxide 400 mg daily - Check Levels Daily Chronic obstructive pulmonary disease ([facility]/HCC) JONATHAN treated with BiPAP - Chronic; on home BiPAP, per RT recs Coronary artery disease of [place] artery of [place] heart with stable angina pectoris ([facility]/HCC) Hyperlipidemia - Chronic; Continue to hold Crestor [...] at this time has elected to pursue Clinical Rehabilitation Coordinator Care placement and would like to speak [...] at this time has elected to pursue Clinical Rehabilitation Coordinator Care placement and would like to speak [...] at this time has elected to pursue Halfway Care placement and would like to speak [...] in urine, Cataract, Chronic kidney disease, Cirrhosis ([facility]), Colon cancer screening (09/20/2019), Coronary artery disease, Depression (1995), Diabetes mellitus type 2 in obese (04/22/2015), Diabetic nephropathy ([facility]), Dry mouth, GERD (gastroesophageal reflux [...] Bunionectomy (Right); Esophagogastroduodenoscopy; Other surgical history (2014); [place] tooth extraction; Breast surgery (2009); and Root canal. Precautions Medical Precautions: Fall precautions Subjective Pt agreeable to OT re-eval. Pt reported she feels weaker. Participants in Care Family/Caregiver Present: No Musical Instrument Maker: Not Applicable Presentation Oxygen Therapy: None (Room [...] (Sister) Level of Mobility: Ambulatory- community Mobility [place]: Independent gait with device History of Falls: [...] Mobility Bed Mobility Exam: Scooting/Bridging Level of [place]: Stand-by assist Physical/Nonphysical Assist: Supervision Assistive Device: Bed rails Bed Mobility Exam: Supine to Sit Level of [place]: Stand-by assist Physical/Nonphysical Assist: Supervision, HOB elevated Assistive Device: Bed rails Transfers Transfer Exam: Sit to stand Level of [place]: Contact guard Physical/Nonphysical Assist: Supervision, Verbal Cues, Minimal cues Assistive Device: Rollator Transfer Exam: Stand to Sit Level of [place]: Stand-by assist Physical/Nonphysical Assist: Supervision, Verbal Cues, Minimal cues Assistive Device: Rollator Transfer Exam: Bed to Chair/Chair to Bed Level of [place]: Contact guard Physical/Nonphysical Assist: Supervision, Verbal Cues, Minimal cues Assistive Device: Rollator Toilet Transfer Level of [place]: Contact guard Physical/Nonphysical Assist: Supervision, Verbal Cues [...] use of toilet paper but needed to hoop driving machine operator helper order to clean [place] area and buttocks. Pt required extra time and rest breaks. Standardized Assessments [facility] 6-Click Daily Activities Help from Other: Don/Doff [...] type 2 in obese (04/22/2015), Diabetic nephropathy ([facility]), Dry mouth, GERD (gastroesophageal reflux [...] Bunionectomy (Right); Esophagogastroduodenoscopy; Other surgical history (2014); [place] tooth extraction; Breast surgery (2009); and Root canal. Precautions Medical Precautions: Fall precautions Subjective Pt agreeable to participating in session. States she is having an off day today. Participants in Care Family/Caregiver Present: No Musical Instrument Maker: Not Applicable Presentation Oxygen Therapy: None (Room [...] (Sister) Level of Mobility: Ambulatory- community Mobility [place]: Independent gait with device History of Falls: [...] Mobility Bed Mobility Exam: Scooting/Bridging Level of [place]: Stand-by assist Physical/Nonphysical Assist: Supervision Assistive Device: Bed rails Bed Mobility Exam: Supine to Sit Level of [place]: Stand-by assist Physical/Nonphysical Assist: Supervision, HOB elevated Assistive Device: Bed rails Transfers Transfer Exam: Sit to stand Level of [place]: Contact guard Physical/Nonphysical Assist: Supervision, Verbal Cues, Minimal cues Assistive Device: Rollator Transfer Exam: Stand to Sit Level of [place]: Stand-by assist Physical/Nonphysical Assist: Supervision, Verbal Cues, Minimal cues Assistive Device: Rollator Toilet Transfer Level of [place]: Contact guard Physical/Nonphysical Assist: Supervision, Verbal Cues, [...] Assessments Standardized Assessments: AMPA 6-Clicks Mobility Assessment [facility] 6-Clicks Mobility Assessment Difficulty patient has turning [...] 3-5 steps with a railing?: A little [facility] [address] 6-Clicks Mobility Assessment Total : 23 Assessment [...] mellitus, with long-term current use of insulin ([facility]) - Last POCT glucose 115 - 6 Units correction in last 24h none overnight or today PLAN - Continue Glargine 24 U daily + resistant SSI - Continue to monitor glucose trends * Assessment & Plan Note - Marcelo Pichardo - 07/02/2025 9:13 AM EDTAssociated Problem(s): Diabetic peripheral neuropathy ([facility]) - Last POCT glucose 115 - 6 [...] AM EDTAssociated Problem(s): Coronary artery disease of [place] artery of [place] heart with stable angina pectoris (CMS/HCC) - [...] not be placed onto transplant list if [place] was her primary address, but she could go to [facility]. They also told patient she would need [...] ultimately decided she would like to pursue ferry terminal supervisor care placement at this time. Review of [...] at this time has elected to pursue Clinical Rehabilitation Coordinator Care placement and would like to speak [...] Continue to hold omeprazole Serum ammonia increased ([facility]) - Last ammonia stable at 61 on 06/30 PLAN - Continue home Lactulose - Recheck ammonia if neurologic change suspected Hypomagnesemia - Mg 1.8 today - Elected to hold IV repletion given oral Mg regimen PLAN - Continue magnesium oxide 400 mg daily - Check Levels Daily Chronic obstructive pulmonary disease ([facility]) JONATHAN treated with BiPAP - Chronic; on home BiPAP, per RT recs Coronary artery disease of [place] artery of [place] heart with stable angina pectoris ([facility]) Hyperlipidemia - Chronic; Continue to [...] [] CARLOTTA - Albumin Challenge [] GOC ferry terminal supervisor care vs home on transplant list Marcelo Pihcardo, MS4 Cosigned by Fabiana Cunningham MD at [...] mother who is unable to drive in [place], and a sister who is unable to take care of her as well. She [facility] but believes no one will be able to help her from the [facility]. Edited by: Glenn Drake APRN at 07/01/20251815 [...] 0 min Stress: Stress Concern Present (05/29/2025) [employer] [place] [employer] - Occupational Stress Questionnaire Feeling of Stress: Very much Social Connections: Socially Isolated (05/29/2025) Social Connection and Isolation Panel Frequency of Communication with Friends and Family: More than three times a week Frequency of Social Gatherings with Friends and Family: Once a week Attends Sikh Services: Never Active Member of Clubs or [...] - Pt inquired about living in a fpc. Pt is unable to be listed active on the transplant ifpermanent address is at a fpc; rehabilitation is acceptable - Transplant surgery will [...] insulin at home Edited by: Glenn Drake, SECURITY INSTALLATION TECHNICIAN at 07/01/2025 5702 Patient educated on transplant surgery evaluation process, [...] 09/20/2019 Added automatically from request for surgery [id number] Coronary artery disease Depression 1995 Diabetes mellitus [...] 1979 BLADDER SURGERY N/A Bladder surgery from [facility] BREAST BIOPSY 2011 BREAST SURGERY 2010 BUNIONECTOMY Right CATARACT EXTRACTION Bilateral 2016 CHOLECYSTECTOMY 1979 ESOPHAGOGASTRODUODENOSCOPY HYSTERECTOMY N/A Hysterectomy from [facility] KNEE SURGERY Bilateral ORAL SURGERY N/A Oral surgery from [facility] OTHER SURGICAL HISTORY 2014 ROOT CANAL WISDOM [...] tablet 3 ergocalciferol (Vitamin D-2) 1.25 MG (37576 UT) capsule Take 1 capsule by mouth [...] EDTAssociated Problem(s): Chronic kidney disease, stage 3b ([facility]) - Creatinine 1.1-1.3 at baseline; Improved to [...] * Assessment & Plan Note - Marcelo iPchardo - 07/01/2025 1:38 PM EDTAssociated Problem(s): Vasovagal [...] mellitus, with long-term current use of insulin ([facility]) - Last POCT glucose 257, received 6 units correction - Prior to this had received 6 Units correction in last 24h PLAN - Continue Glargine 24 U daily + resistant SSI - Continue to monitor glucose trends * Assessment & Plan Note - Marcelo Pichardo - 07/01/2025 1:24 PM EDTAssociated Problem(s): Diabetic peripheral neuropathy ([facility]) - Last POCT glucose 257, [...] though not on medication - Stopped seeing skoog patching machine operator after being dismissed for missing too many [...] though not on medication - Stopped seeing skoog patching machine operator after being dismissed for missing too many appointments - Blood smear results pancytopenia not morphologically distinct PLAN - Continue to monitor - Continue Heparin for DVT prophylaxis - Rheumatology referral outpatient * Progress Notes - Venessa Brown - 07/01/2025 11:06 AM EDT Case Management Adult Progress Note Monika Ordaz 64 y.o. female CSN: [id number] Admission: 06/25/2025 2:14 PM Primary Problem: Acute [...] IM Order: Yes Consult Requested By: Nurse/ SECURITY INSTALLATION TECHNICIAN Reason for IM Consult: Emotional Symptoms Contact [...] and reminiscing about her time living in [facility]. Pt talked about singingin choir [...] significant concern and would prefer JOHN or termite control technician care pending influence on ability to receive transplant - Patient endorsing some burning discomfort that begins in buttocks and radiates down lateral leg, does not feel as though she is getting moved much - Concerned with possible disorientation PLAN - Transplant service to evaluate today and determine if alf care would be a barrier to futureliver transplant - Delirium protocols - Up to Chair TID, q4 turns * Assessment & Plan Note - Marcelo Pichardo - 07/01/2025 9:16 AM EDTAssociated Problem(s): Self-care deficit - PTOT recjo home health - Patient and family have significant concern and would prefer JOHN or termite control technician care pending influence on ability to receive transplant - Patient endorsing some burning discomfort that begins in buttocks and radiates down lateral leg, does not feel as though she is getting moved much - Concerned with possible disorientation PLAN - Transplant service to evaluate today and determine if alf care would be a barrier to futureliver [...] significant concern and would prefer JOHN or termite control technician care pending influence on ability to receive transplant - Patient endorsing some burning discomfort that begins in buttocks and radiates down lateral leg, does not feel as though she is getting moved much - Concerned with possible disorientation PLAN - Transplant service to evaluate today and determine if termite control technician care would be a barrier to futureliver [...] AM EDTAssociated Problem(s): Coronary artery disease of [place] artery of [place] heart with stable angina pectoris (CMS/HCC) - [...] a Rollator though she left this in [place]. 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 - PTOT recs home health - Patient and family have significant concern and would prefer JOHN or alf care pending influence on ability to receive transplant - Patient endorsing some burning discomfort that begins in buttocks and radiates down lateral leg, does not feel as though she is getting moved much - Concerned with possible disorientation PLAN - Transplant service to evaluate today and determine if termite control technician care would be a barrier to futureliver transplant - Delirium protocols - Up to Chair TID, q4 turns Type 2 diabetes mellitus, with long-term current use of insulin (CMS/HCC) Diabetic peripheral neuropathy ([facility]/HCC) - Last POCT glucose 257, received 6 [...] Check Levels Daily Chronic obstructive pulmonary disease ([facility]/HCC) JONATHAN treated with BiPAP - Chronic; on home BiPAP, per RT recs Coronary artery disease of [place] artery of [place] heart with stable angina pectoris ([facility]/HCC) Hyperlipidemia - Chronic; Continue to hold Crestor Obesity (BMI 30.0-34.9) - Chronic; Complicates all aspects of care F: PO E: Monitor and replace as necessary N: Adult diet Diet texture: Regular; Carbohydrate restriction: Consistent Carb 2 (80 gm max/meal); Electrolyte Restriction: Renal GI: no PPI DVT prophylaxis: Heparin Lines and Tubes: PIV CODE: Full Code SOCIAL: Lives with sister in [facility] PT/OT: recommendations: Home with Home Health Consultants: [...] - Continue daily vit D 1000 U; 12315 U to be ordered on 06/30 if [...] - Continue daily vit D 1000 U; 06005 U to be ordered on 06/30 if [...] - Continue daily vit D 1000 U; 20199 U to be ordered on 06/30 if [...] - Continue daily vit D 1000 U; 75313 U to be ordered on 06/30 if [...] - Continue daily vit D 1000 U; 93789 U to be ordered on 06/30 if [...] - Continue daily vit D 1000 U; 19327 U to be ordered on 06/30 if [...] recommended home health; patient and family requested [facility] facility PLAN - Contacted transplant service to [...] recommended home health; patient and family requested [facility] facility PLAN - Contacted transplant service to determine if placement is a barrier to future liver transplant; transplant ANAYA will come tomorrow to discuss options with patient * Assessment & Plan Note - Veronica Del Valle DO - 06/30/2025 1:48 PM EDT Associated Problem(s): Type 2 diabetes mellitus, with long-term current use of insulin ([facility]) - Last POCT glucose 128 - Received 10 units correction in past 24hrs - Hypoglycemia precautions ordered due to reported hypoglycemia at home PLAN - Continue Glargine 24 U daily + resistant SSI - Continue to monitor glucose trends * Assessment & Plan Note - Veronica Del Valle DO - 06/30/2025 1:48 PM EDT Associated Problem(s): Diabetic peripheral neuropathy ([facility]) - Last POCT glucose 128 - Received 10 units correction in past 24hrs - Hypoglycemia precautions ordered due to reported hypoglycemia at home PLAN - Continue Glargine 24 U daily + resistant SSI - Continue to monitor glucose trends * Assessment & Plan Note - Veronica Del Valle DO - 06/30/2025 1:48 PM EDT Associated Problem(s): Dysphagia - 06/28 DEPUTY CONTROLLER diet recommendations; see below - Patient continues to eat full diet without difficulty PLAN - Continue to hold omeprazole * Assessment & Plan Note - Veronica Del Valle DO - 06/30/2025 1:48 PM EDT Associated Problem(s): Heartburn - 06/28 DEPUTY CONTROLLER diet recommendations; see below - Patient continues to eat full diet without difficulty PLAN - Continue to hold omeprazole * Assessment & Plan Note - Veronica Del Valle DO - 06/30/2025 1:48 PM EDT Associated Problem(s): Coronary artery disease of [place] artery of [place] heart with stable angina pectoris ([facility]/HCC) - Chronic; Continue to hold Crestor * [...] - Continue daily vit D 1000 U; 67580 U to be ordered on 06/30 if [...] recommended home health; patient and family requested [facility] facility PLAN - Contacted transplant service to determine if placement is a barrier to future liver transplant; transplant ANAYA will come tomorrow to discuss options with patient Type 2 diabetes mellitus, with long-term current use of insulin ([facility]) Diabetic peripheral neuropathy ([facility]) - Last POCT glucose 128 - Received 10 units correction in past 24hrs - Hypoglycemia precautions ordered due to reported hypoglycemia at home PLAN - Continue Glargine 24 U daily + resistant SSI - Continue to monitor glucose trends Dysphagia Heartburn - 06/28 DEPUTY CONTROLLER diet recommendations; see below - Patient continues to eat full diet without difficulty PLAN - Continue to hold omeprazole Serum ammonia increased ([facility]) - 06/30 Ammonia 61; decreased from 125 [...] if remains low Chronic obstructive pulmonary disease ([facility]) JONATHAN treated with BiPAP - Chronic; on home BiPAP, per RT recs Coronary artery disease of [place] artery of [place] heart with stable angina pectoris ([facility]) Hyperlipidemia - Chronic; Continue to hold Crestor Obesity (BMI 30.0-34.9) - Chronic; Complicates all aspects of care F: PO E: Monitor and replace as necessary N: Adult diet Diet texture: Regular; Carbohydrate restriction: Consistent Carb 2 (80 gm max/meal); Electrolyte Restriction: Renal GI: no PPI DVT prophylaxis: Heparin Lines and Tubes: pIV CODE: Full Code SOCIAL: Currently lives with sister in [facility] PT/OT: consulted, appreciate recommendations Consultants: PT/OT, nutrition, hepatology, nephrology, IR Disposition: Medically Ready for Discharge:Anticipated in 2-4 Days [] CARLOTTA resolution [] Placement Veronica Del Valle DO, Family Medicine, PGY-1 [facility] Cosigned by Fabiana Cunningham MD at [...] Progress: improving Taken 06/29/2025 120 by Stefania Bermeo RN Plan of Care [...] - Continue daily vit D 1000 U; 80847 U to be ordered on 06/30 if [...] - Continue daily vit D 1000 U; 99783 U to be ordered on 06/30 if [...] - Continue daily vit D 1000 U; 78057 U to be ordered on 06/30 if [...] - Continue daily vit D 1000 U; 15295 U to be ordered on 06/30 if [...] - Continue daily vit D 1000 U; 10420 U to be ordered on 06/30 if [...] - Continue daily vit D 1000 U; 82254 U to be ordered on 06/30 if [...] mellitus, with long-term current use of insulin ([facility]) - Last POCT glucose 144 - Received 0U correction this morning - Hypoglycemia precautions ordered due to reported hypoglycemia at home PLAN - Continue Glargine 24 U daily + resistant SSI - Continue to monitor glucose trends * Assessment & Plan Note - Juliane Rodriguez - 06/29/2025 12:33 PM EDTAssociated Problem(s): Diabetic peripheral neuropathy ([facility]) - Last POCT glucose 144 - Received 0U correction this morning - Hypoglycemia precautions ordered due to reported hypoglycemia at home PLAN - Continue Glargine 24 U daily + resistant SSI - Continue to monitor glucose trends * Assessment & Plan Note - Juliane Rodriguez - 06/29/2025 12:33 PM EDTAssociated Problem(s): Dysphagia - DEPUTY CONTROLLER attempted to see patient 06/27; was in procedure - 06/28 DEPUTY CONTROLLER diet recommendations: IDDSI Level 7 - Regular and IDDSI Level 0- Thin PLAN - Continue to hold omeprazole * Assessment & Plan Note - Juliane Rodriguez - 06/29/2025 12:33 PM EDTAssociated Problem(s): Heartburn - DEPUTY CONTROLLER attempted to see patient 06/27; was in procedure - 06/28 DEPUTY CONTROLLER diet recommendations: IDDSI Level 7 - Regular [...] recommended home health; patient and family requested [facility] facility PLAN - Plan for placement in long-term care * Assessment & Plan Note - Juliane Rodriguez - 06/29/2025 11:21 AM EDTAssociated Problem(s): Self-care deficit - Patient reports poor PO intake at home in s/o large-volume ascites - Family involved in and amenable to discussion of placement; concerned for declining ability to perform ADLs - PT/OT recommended home health; patient and family requested [facility] facility PLAN - Plan for placement in long-term care * Assessment & Plan Note - Juliane Rodriguez - 06/29/2025 11:21 AM EDTAssociated Problem(s): Chronic obstructive pulmonary disease ([facility]/HCC) - Chronic; on home BiPAP, per RT recs * Assessment & Plan Note - Juliane Rodriguez - 06/29/2025 11:21 AM EDTAssociated Problem(s): JONATHAN treated with BiPAP - Chronic; on home BiPAP, per RT recs * Assessment & Plan Note - Juliane Rodriguez - 06/29/2025 11:21 AM EDTAssociated Problem(s): Coronary artery disease of [place] artery of [place] heart with stable angina pectoris (CMS/HCC) - [...] concerned about her increased ammonia levels. 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 She is concerned [...] that her transplant team may frown upon termite control technician care. She does not want to spend [...] - Continue daily vit D 1000 U; 22935 U to be ordered on 06/30 if still admitted - Renally dose medications and avoid nephrotoxic agents Other neutropenia ([facility]) Pancytopenia - WBC 2.22 (baseline 4.0) with [...] recommended home health; patient and family requested [facility] facility PLAN - Plan for placement in long-term care Type 2 diabetes mellitus, with long-term current use of insulin ([facility]) Diabetic peripheral neuropathy ([facility]) - Last POCT glucose 144 - Received 0U correction this morning - Hypoglycemia precautions ordered due to reported hypoglycemia at home PLAN - Continue Glargine 24 U daily + resistant SSI - Continue to monitor glucose trends Dysphagia Heartburn - DEPUTY CONTROLLER attempted to see patient 06/27; was in procedure - 06/28 DEPUTY CONTROLLER diet recommendations: IDDSI Level 7 - Regular and IDDSI Level 0- Thin PLAN - Continue to hold omeprazole Chronic obstructive pulmonary disease ([facility]) JONATHAN treated with BiPAP - Chronic; on home BiPAP, per RT recs Coronary artery disease of [place] artery of [place] heart with stable angina pectoris ([facility]) Hyperlipidemia - Chronic; Continue to hold Crestor Obesity (BMI 30.0-34.9) - Chronic; Complicates all aspects of care Hypomagnesemia - 1.6 on admission; Stable at 1.8 06/29 - Given 2g mag IV on 06/27 PLAN - Continue magnesium oxide 400 mg daily - Plan to replete if it remains low Serum ammonia increased ([facility]) - Ammonia 125 06/29 - Patient takes [...] Code SOCIAL: Currently living with sister in [facility] PT/OT: consulted, appreciate recommendations Consultants: PT/OT, [...] - Continue daily vit D 1000 U; 31378 U to be ordered on 06/30 if [...] - Continue daily vit D 1000 U; 03897 U to be ordered on 06/30 if [...] - Continue daily vit D 1000 U; 86420 U to be ordered on 06/30 if [...] - Continue daily vit D 1000 U; 88829 U to be ordered on 06/30 if [...] - Continue daily vit D 1000 U; 95702 U to be ordered on 06/30 if [...] - Continue daily vit D 1000 U; 42685 U to be ordered on 06/30 if [...] recommended home health; patient and family requested [facility] PLAN - Plan for placement in [...] recommended home health; patient and family requested [facility] facility PLAN - Plan for placement in long-term care * Assessment & Plan Note - Chilo Morales MD - 06/29/2025 8:30 AM EDT Associated Problem(s): Type 2 diabetes mellitus, with long-term current use of insulin ([facility]) - Last POCT glucose 151 (before receiving 24U) - Received 2U correction this morning - Hypoglycemia precautions ordered due to reported hypoglycemia at home PLAN - Continue Glargine 24 U daily + resistant SSI - Continue to monitor glucose trends * Assessment & Plan Note - Chilo Morales MD - 06/29/2025 8:30 AM EDT Associated Problem(s): Diabetic peripheral neuropathy ([facility]) - Last POCT glucose 151 (before receiving 24U) - Received 2U correction this morning - Hypoglycemia precautions ordered due to reported hypoglycemia at home PLAN - Continue Glargine 24 U daily + resistant SSI - Continue to monitor glucose trends * Assessment & Plan Note - Chilo Morales MD - 06/29/2025 8:30 AM EDT Associated Problem(s): Dysphagia - DEPUTY CONTROLLER attempted to see patient 8/7; was in procedure PLAN - Awaiting DEPUTY CONTROLLER eval - Continue to hold omeprazole * Assessment & Plan Note - Chilo Morales MD - 06/29/2025 8:30 AM EDT Associated Problem(s): Heartburn - DEPUTY CONTROLLER attempted to see patient 8/7; was in procedure PLAN - Awaiting DEPUTY CONTROLLER eval - Continue to hold omeprazole * Assessment & Plan Note - Chilo Morales MD - 06/29/2025 8:30 AM EDT Associated Problem(s): Chronic obstructive pulmonary disease ([facility]) - Chronic; on home BiPAP, per RT recs * Assessment & Plan Note - Chilo Morales MD - 06/29/2025 8:30 AM EDT Associated Problem(s): JONATHAN treated with BiPAP - Chronic; on home BiPAP, per RT recs * Assessment & Plan Note - Chilo Morales MD - 06/29/2025 8:30 AM EDT Associated Problem(s): Coronary artery disease of [place] artery of [place] heart with stable angina pectoris ([facility]) - Chronic; Continue to hold Crestor * [...] Review Outcome: Ongoing, Progressing Flowsheets (Taken 06/28/2025 3294 by Aubrey Eason LPN) Progress: improving Outcome [...] Fall and Fall-Related Injury 06/28/2025 1336 by Aubrye Eason LPN Outcome: Ongoing, Progressing 06/28/2025 1304 [...] reviewed * Progress Notes - Laura Garcia CCC-DEPUTY CONTROLLER - 06/28/2025 12:39 PM EDT Speech Language [...] GERD (holding home medication at this time) [place] Swallow Protocol (Cruz, 2008) - 3 Oz [...] overt s/s of aspiration. Pt passed the [place] Swallow Protocol suggesting low risk of aspiration. [...] Thin Therapy Frequency: PRN for DT Goals Clinical Rehabilitation Coordinator Goal Monika Ordaz will maintain adequate hydration/nutrition [...] 3b (CMS/HCC) ??? Coronary artery disease of [place] artery of [place] heart with stable angina pectoris (CMS/HCC) ??? [...] 09/20/2019 Added automatically from request for surgery [id number] ??? Coronary artery disease ??? Depression 1996 [...] ??? BLADDER SURGERY N/A Bladder surgery from [facility] ??? BREAST BIOPSY 2010 ??? BREAST SURGERY 2009 ??? BUNIONECTOMY Right ??? CATARACT EXTRACTION Bilateral 2015 ??? CHOLECYSTECTOMY 1979 ??? ESOPHAGOGASTRODUODENOSCOPY ??? HYSTERECTOMY N/A Hysterectomy from [facility] ??? KNEE SURGERY Bilateral ??? ORAL SURGERY N/A Oral surgery from [facility] ??? OTHER SURGICAL HISTORY 2014 ??? ROOT [...] - Continue daily vit D 1000 U; 41067 U to be ordered on 06/30 if [...] recommended home health; patient and family requested [facility] facility PLAN - Plan for placement in long-term care Type 2 diabetes mellitus, with long-term current use of insulin ([facility]) Diabetic peripheral neuropathy ([facility]) - Last POCT glucose 151 (before receiving 24U) - Received 2U correction this morning - Hypoglycemia precautions ordered due to reported hypoglycemia at home PLAN - Continue Glargine 24 U daily + resistant SSI - Continue to monitor glucose trends Dysphagia Heartburn - DEPUTY CONTROLLER attempted to see patient 06/27; was in procedure PLAN - Awaiting DEPUTY CONTROLLER eval - Continue to hold omeprazole Chronic obstructive pulmonary disease ([facility]) JONATHAN treated with BiPAP - Chronic; on home BiPAP, per RT recs Coronary artery disease of [place] artery of [place] heart with stable angina pectoris ([facility]) Hyperlipidemia - Chronic; Continue to [...] Code SOCIAL: Currently living with sister in [facility] PT/OT: consulted, appreciate recommendations Consultants: PT/OT, nutrition, hepatology, nephrology, IR Disposition: Medically Ready for Discharge: Anticipated in 2-4 Days [] CARLOTTA resolution [] Placement Veronica Del Valle DO, Family Medicine, PGY-1 [facility] Cosigned by Chilo Morales MD at [...] - Continue daily vit D 1000 U; 38573 U to be ordered on 06/30 if [...] - Continue daily vit D 1000 U; 18009 U to be ordered on 06/30 if [...] - Continue daily vit D 1000 U; 90052 U to be ordered on 06/30 if [...] - Continue daily vit D 1000 U; 82571 U to be ordered on 06/30 if [...] - Continue daily vit D 1000 U; 83263 U to be ordered on 06/30 if [...] - Continue daily vit D 1000 U; 90333 U to be ordered on 06/30 if [...] consulted; recs appreciated - Patient agreeable to [facility] facility * Assessment & Plan Note - [...] consulted; recs appreciated - Patient agreeable to [facility] facility * Assessment & Plan Note - Chilo Morales MD - 06/27/2025 3:08 PM EDT Associated Problem(s): Type 2 diabetes mellitus, with long-term current use of insulin ([facility]) - BG 245 on arrival; last POCT [...] PM EDT Associated Problem(s): Diabetic peripheral neuropathy ([facility]) - BG 245 on arrival; last POCT [...] - Continue to hold omeprazole - Ordered DEPUTY CONTROLLER consult; appreciate recommendations * Assessment & Plan Note - Chilo Morales MD - 06/27/2025 3:08 PM EDT Associated Problem(s): Heartburn - Chronic; advised to hold home omeprazole at most recent nephrology appointment due to concern forAKI PLAN - Continue to hold omeprazole - Ordered DEPUTY CONTROLLER consult; appreciate recommendations * Assessment & Plan [...] EDT Associated Problem(s): Coronary artery disease of [place] artery of [place] heart with stable angina pectoris ([facility]) - Chronic; Crestor discontinued at most recent [...] Note Monika Ordaz 64 y.o. female CSN: [id number] Admission: 06/25/2025 2:14 PM Primary Problem: Acute kidney injury superimposed on stage 3b chronic kidney disease (CMS/HCC) Additional Comments SW met with the Family Medicine team to review pts POC. Pts recommendations from PT/OT are home with 24 hour care and home health. Pt told SW in her meeting yesterday that she will not be able to return to her sisters home in [place] and her son is not able to [...] to care for self. On arrival to [facility], patient promptly evaluated by FM [...] vit D 1000 U was continued. Weekly 49215 vit D was not resumed during hospital [...] off oftransplant list in favor of pursuing alf care placement. MELD improved to 21. #Other neutropenia #Pancytopenia Baseline WBC is 4.0 and baseline RBC was 3.0. Most recent WBC was 3.24 with 1.84 absolute neutrophils and most recent RBC was 2.67. Labs were monitored throughout the patient's hospital stay. [id number] was initiated for DVT prophylaxis. Blood smear [...] patient was amenable to going to a [facility] facility. 06/28, patient had an episode of [...] nephrology appointment due to concern for CARLOTTA. DEPUTY CONTROLLER consult ordered. DEPUTY CONTROLLER saw patient and determined no overt s/s [...] % * Clinician Note - Laura Garcia CCC-DEPUTY CONTROLLER - 06/27/2025 1:22 PM EDT Speech Language Pathology - Attempt Patient Name: Monika Ordaz Age: 64 y.o. Today's Date: 06/27/2025 Chart review completed. Attempted to see patient today for clinical swallow evaluation x2. Pt out of room for procedure. DEPUTY CONTROLLER team to follow up as schedule allows. * Consults - Delfin Gibson - 06/27/2025 1:00 PM EDT Pastoral Care Note Architectural Drafting Instructor visited with Monika, her mother and sister. [...] concerns for organ donors and their families. Architectural Drafting Instructor listened empathetically, provided emotional and spiritual support for Monika and her family. Referral From: Architectural Drafting Instructor Initiated Pastoral Care Provided For: Patient, Parent(s), Sibling(s) Patient Profile: Consult Reasons: Initial visit Spiritual Assessment: Support Systems/ Spiritual Resources: Nicolasa, Family, Prayer Spiritual Needs: Emotional support, Prayer, Spiritual support Spiritual Issues: Chronic pain/ illness, Family concerns, Change/ transition, Critical Illness Interventions: Interventions Provided: Identify restorationist/ spiritual coping, Prayer, Spiritual support, Emotional support, Family support, Introduced Patient/Family to Architectural Drafting Instructor Services, Supportive Listening, Consulted with care team Pastoral Care Outcomes: Patient Outcomes: Demonstrates lower level of Anxious(ness), Communicates increased satisfaction with hospital experience, Appreciative of Architectural Drafting Instructor Support, Gratitude, Expresses intent to participate/comply in plan of care, Demonstrates and/or verbalizes increased comfort * Post-Procedure Note - Marianna Gordon APRN - 06/27/2025 10:07 AM EDT Vascular and Interventional Radiology Brief Postprocedure Note Performed by: Marianna Gordon APRN Dancing Master: LOUISE Pre-operative Diagnosis: right pleural effusion and [...] 06/27/2025 9:55 AM EDT Pastoral Care Note Architectural Drafting Instructor attempted to visit with Monika. She was out of the room, no family present at this time. Architectural Drafting Instructor consulted with care team and will follow up as able. Referral From: Architectural Drafting Instructor Initiated Pastoral Care Provided For: Patient Patient [...] - Any questions with scheduling please call [phone] Thank you for allowing us to participate in the care of this patient. Marianna Gordon APRN Interventional Radiology [phone] [1] Past Medical History: Diagnosis Date ADHD (attention deficit hyperactivity disorder) Allergic Anxiety disorder, unspecified Anxiety Bleeding gums Blood in urine Cataract Chronic kidney disease Cirrhosis (CMS/HCC) Colon cancer screening 09/20/2019 Added automatically from request for surgery [id number] Coronary artery disease Depression 1996 Diabetes mellitus [...] 1979 BLADDER SURGERY N/A Bladder surgery from [facility] BREAST BIOPSY 2011 BREAST SURGERY 2010 BUNIONECTOMY Right CATARACT EXTRACTION Bilateral 2016 CHOLECYSTECTOMY 1980 ESOPHAGOGASTRODUODENOSCOPY HYSTERECTOMY N/A Hysterectomy from [facility] KNEE SURGERY Bilateral ORAL SURGERY N/A Oral surgery from [facility] OTHER SURGICAL HISTORY 2014 ROOT CANAL WISDOM [...] Ontiveros, ADRI, DNP * Progress Notes - Juliaen Rodriguez - 06/27/2025 8:14 AM EDT FAMILY [...] - Continue daily vit D 1000 U; 02795 U to be ordered on 06/30 if still admitted - Renally dose medications and avoid nephrotoxic agents Other neutropenia ([facility]) Pancytopenia - WBC 2.26 (baseline 4.0) with [...] consulted; recs appreciated - Patient agreeable to [facility] facility Type 2 diabetes mellitus, with long-term current use of insulin ([facility]) Diabetic peripheral neuropathy ([facility]) - BG 245 on arrival; last POCT [...] - Continue to hold omeprazole - Ordered DEPUTY CONTROLLER consult; appreciate recommendations Chronic obstructive pulmonary disease ([facility]) JONATHAN treated with BiPAP - Chronic; on BiPAP nightly at home - Sister is bringing home BiPAP this afternoon PLAN - Continue nightly BiPAP at 12/6 per RT recs; RT to adjust settings as appropriate Coronary artery disease of [place] artery of [place] heart with stable angina pectoris (CMS/HCC) Hyperlipidemia [...] Code SOCIAL: Currently living with sister in [facility] PT/OT: consulted, appreciate recommendations Consultants: PT/OT, [...] - Continue daily vit D 1000 U; 05215 U to be ordered on 06/30 if [...] - Continue daily vit D 1000 U; 05856 U to be ordered on 06/30 if [...] - Continue daily vit D 1000 U; 70460 U to be ordered on 06/30 if [...] - Continue daily vit D 1000 U; 70350 U to be ordered on 06/30 if [...] - Continue daily vit D 1000 U; 89951 U to be ordered on 06/30 if [...] - Continue daily vit D 1000 U; 99423 U to be ordered on 06/30 if [...] mellitus, with long-term current use of insulin ([facility]) - BG 245 on arrival; last POCT [...] PM EDT Associated Problem(s): Diabetic peripheral neuropathy ([facility]) - BG 245 on arrival; last POCT [...] - Continue to hold omeprazole - Ordered DEPUTY CONTROLLER consult; appreciate recommendations * Assessment & Plan Note - Chilo Morales MD - 06/26/2025 3:57 PM EDT Associated Problem(s): Heartburn - Chronic; advised to hold home omeprazole at most recent nephrology appointment due to concern forAKI PLAN - Continue to hold omeprazole - Ordered DEPUTY CONTROLLER consult; appreciate recommendations * Assessment & Plan [...] EDT Associated Problem(s): Coronary artery disease of [place] artery of [place] heart with stable angina pectoris ([facility]) - Chronic; Crestor discontinued at most recent [...] - Any questions with scheduling please call [phone] Thank you for allowing us to participate in the care of this patient. Shaniqua Mccurdy, ADRI Interventional Radiology [phone] [1] Past Medical History: Diagnosis Date ADHD (attention deficit hyperactivity disorder) Allergic Anxiety disorder, unspecified Anxiety Bleeding gums Blood in urine Cataract Chronic kidney disease Cirrhosis (CMS/HCC) Colon cancer screening 09/20/2019 Added automatically from request for surgery [id number] Coronary artery disease Depression 1995 Diabetes mellitus [...] 1979 BLADDER SURGERY N/A Bladder surgery from [facility] BREAST BIOPSY 2011 BREAST SURGERY 2010 BUNIONECTOMY Right CATARACT EXTRACTION Bilateral 2016 CHOLECYSTECTOMY 1979 ESOPHAGOGASTRODUODENOSCOPY HYSTERECTOMY N/A Hysterectomy from [facility] KNEE SURGERY Bilateral ORAL SURGERY N/A Oral surgery from [facility] OTHER SURGICAL HISTORY 2015 ROOT CANAL WISDOM [...] Units, Subcutaneous, TID with meals, Blayne Ordaz , 4 Units at 06/26/25 1224 insulin [...] Note Monika Ordaz 64 y.o. female CSN: [id number] Admission: 06/25/2025 2:14 PM Primary Problem: Acute kidney injury superimposed on stage 3b chronic kidney disease (CMS/HCC) Level Vial Inspector And Tester reviewed chart and spoke with patient at bedside to complete this Initial Case Management Assessment. Pt confirmed that her home address and PCP listed in Epic is correct. Pt stated thatshe has been living with her sister in [place] since mid May. Pts mother also is currently staying with pts sister. PCP: Alvarez Ordaz MD Emergency Contact: Extended Emergency Contact Information Primary Emergency Contact: OrdazViral Mobile Relation: Son Preferred language: [place] Musical Instrument Maker needed? No Secondary Emergency Contact: Pankaj Bernalin Mobile Relation: Sister Insurance: Primary Visit Coverage Payer Plan Sponsor Code Group Number Group Name HUMANA MEDICARE HUMANA MEDICARE [id number] [employer] Primary Visit Coverage Subscriber Subscriber ID Subscriber Name Subscriber SSN Subscriber Address [id number] MONIKA ORDAZ [id number] [place], [place] [id number] Secondary Visit Coverage Payer Plan Sponsor Code Group Number Group Name [place] [facility] Secondary Visit Coverage Subscriber Subscriber ID Subscriber Name Subscriber SSN Subscriber Address [id number] MONIKA ORDAZ [id number] [place], [place] [id number] Patient information: Primary Caregiver: Self Support System: Immediate family Daily Living Activities: Functional Status: Minimum assistance Living Arrangements: Family Type of Residence: Private residence [address] [place] [address] Smoker in the Home?: No Current DME: Equipment Currently Used at Home: Bipap, walker, rollator Income Information: Income Source: Disabled Income/Expense Information: Expenses exceed income Current Resources Utilized: Food [place] Housing Circumstances-Z Codes: Housing Circumstances (select all that apply): Low Income (101-300% Federal Poverty Guidlines) - Z596 Anticipated Discharge Date: tBD Patient's Discharge Goal: Pt stated that she would like to go to rehab or [facility] facility.Pt does not feel that her sister can care for her and she does not feel safe living on her own. Assistance Available at Discharge: Pt is currently living with her sister but usually lives alone in a trailer in [place] Discharge Transport: May need assistance Follow Up Transport: Sister or son Home Health / Home Infusion / Outpatient Dialysis Services: None reported Living Will/Advance Directive/Power of Electrical Drafter /Guardian: Have you reviewed your Advance Directive and is it valid for this stay?: No Advance Directive: Patient would not like information Information Provided on Healthcare Directives: No Pre-existing DNR/DNI Order: No Patient Requests Assistance: No Pt was given the 5 Wishes workbook. Additional Comments: Pt uses the [facility] pharmacy for her medications. Venessa Brown * Consults - Medina Real RD - 06/26/2025 10:40 AM EDTAssociated Order(s): IP CONSULT TO NUTRITION SERVICES Adult Nutrition Evaluation Note Monika Ordaz 64 y.o. female CSN: [id number] Room/Bed 723/723A Nutrition evaluation type: assessment Reason for evaluation: provider consult Hospital course: 64y/o female admitted 06/25 for CARLOTTA on CKD and inability to care for herself. Past medical/ surgical history: Past Medical History[1] Surgical History[2] Social history: None, no restorationist needs Additional comments: 06/26: RD visited pt [...] 30.05 Weight Evaluation: Obese-Class 1 (BMI 30-34.9) [place] Body Weight (kg): 57 Percent [place] Body Weight: 144 Adjusted Body Weight (kg): [...] Regular Adult Carbohydrate Restriction: Consistent CHO 3 (5076-9976 Deniz, 95 g/meal) Fat Restriction: Fat-free Electrolyte [...] 09/20/2019 Added automatically from request for surgery [id number] Coronary artery disease Depression 1995 Diabetes mellitus [...] 1979 BLADDER SURGERY N/A Bladder surgery from [facility] BREAST BIOPSY 2011 BREAST SURGERY 2010 BUNIONECTOMY Right CATARACT EXTRACTION Bilateral 2016 CHOLECYSTECTOMY 1979 ESOPHAGOGASTRODUODENOSCOPY HYSTERECTOMY N/A Hysterectomy from [facility] KNEE SURGERY Bilateral ORAL SURGERY N/A Oral surgery from [facility] OTHER SURGICAL HISTORY 2014 ROOT CANAL WISDOM [...] tablet 1 ergocalciferol (Vitamin D-2) 1.25 MG (38205 UT) capsule Take 1 capsule by mouth [...] Self-care deficit 06/25/2025 CARLOTTA (acute kidney injury) ([facility]) 06/25/2025 Hx of spontaneous bacterial peritonitis 03/01/2025 Acute kidney injury superimposed on stage 3b chronic kidney disease ([facility]) 10/14/2024 Type 2 diabetes mellitus, with long-term current use of insulin ([facility]) 01/11/2024 Cirrhosis of liver with ascites ([facility]) 11/30/2022 Hyperlipidemia 07/17/2021 Obesity (BMI 30.0-34.9) 06/27/2020 JONATHAN treated with BiPAP 12/03/2019 Heartburn 08/02/2019 Chronic kidney disease, stage 3b ([facility]) 08/24/2018 Physical debility 08/24/2018 Chronic obstructive pulmonary disease ([facility]) 08/22/2018 Coronary artery disease of [place] artery of [place] heart with stable angina pectoris ([facility]) 08/22/2018 Dysphagia 05/17/2018 Diabetic peripheral neuropathy ([facility]) 01/07/2017 Procedures Past Medical History Patient has a past medical history of ADHD (attention deficit hyperactivity disorder), Allergic, Anxiety disorder, unspecified, Bleeding gums, Blood in urine, Cataract, Chronic kidney disease, Cirrhosis ([facility]), Colon cancer screening (09/20/2019), Coronary artery disease, Depression (1995), Diabetes mellitus type 2 in obese (04/22/2015), Diabetic nephropathy ([facility]), Dry mouth, GERD (gastroesophageal reflux [...] Bunionectomy (Right); Esophagogastroduodenoscopy; Other surgical history (2014); [place] tooth extraction; Breast surgery (2009); and Root canal. Precautions Medical Precautions: Fall precautions Subjective Pt agreeable to OT eval. Participants in Care Family/Caregiver Present: No Musical Instrument Maker: Not Applicable Presentation Oxygen Therapy: None (Room [...] (Sister) Level of Mobility: Ambulatory- community Mobility [place]: Independent gait with device History of Falls: [...] Mobility Bed Mobility Exam: Scooting/Bridging Level of [place]: Stand-by assist Physical/Nonphysical Assist: Supervision Assistive Device: Bed rails Bed Mobility Exam: Supine to Sit Level of [place]: Stand-by assist Physical/Nonphysical Assist: Supervision, HOB elevated Assistive Device: Bed rails Transfers Transfer Exam: Sit to stand Level of [place]: Contact guard Physical/Nonphysical Assist: Supervision, Verbal Cues, Minimal cues Assistive Device: Rollator Transfer Exam: Stand to Sit Level of [place]: Stand-by assist Physical/Nonphysical Assist: Supervision, Verbal Cues, Minimal cues Assistive Device: Rollator Transfer Exam: Bed to Chair/Chair to Bed Level of [place]: Contact guard Physical/Nonphysical Assist: Supervision, Verbal Cues, Minimal cues Assistive Device: Rollator Toilet Transfer Level of [place]: Stand-by assist Physical/Nonphysical Assist: Supervision, Verbal Cues, [...] SBA, Setup Where Assessed: Toilet Standardized Assessments [facility] 6-Click Daily Activities Help from Other: Don/Doff Regular Lower Body Clothings: None Help From Other: Bathing: None Help From Other: Toileting: None Help From Other: Don/Doff Upper Body Clothings: None Help From Other: Grooming: None Help From Other: Eating Meals: None [facility] 6 Click - Daily Activities Score: 24 [...] superimposed on stage 3b chronic kidney disease ([facility]) 10/14/2024 Type 2 diabetes mellitus, with long-term current use of insulin ([facility]) 01/11/2024 Cirrhosis of liver with ascites ([facility]) 11/30/2022 Hyperlipidemia 07/17/2021 Obesity (BMI 30.0-34.9) 06/27/2020 JONATHAN treated with BiPAP 12/03/2019 Heartburn 08/02/2019 Chronic kidney disease, stage 3b ([facility]) 08/24/2018 Physical debility 08/24/2018 Chronic obstructive pulmonary disease ([facility]) 08/22/2018 Coronary artery disease of [place] artery of [place] heart with stable angina pectoris ([facility]) 08/22/2018 Dysphagia 05/17/2018 Diabetic peripheral neuropathy ([facility]) 01/07/2017 Procedures Past Medical History Patient has a past medical history of ADHD (attention deficit hyperactivity disorder), Allergic, Anxiety disorder, unspecified, Bleeding gums, Blood in urine, Cataract, Chronic kidney disease, Cirrhosis ([facility]), Colon cancer screening (09/20/2019), Coronary artery disease, Depression (1995), Diabetes mellitus type 2 in obese (04/22/2015), Diabetic nephropathy ([facility]), Dry mouth, GERD (gastroesophageal reflux [...] Bunionectomy (Right); Esophagogastroduodenoscopy; Other surgical history (2015); [place] tooth extraction; Breast surgery (2010); and Root canal. Precautions Medical Precautions: Fall precautions Subjective Pt agreeable to participating in session. Participants in Care Family/Caregiver Present: No Musical Instrument Maker: Not Applicable Presentation Oxygen Therapy: None (Room [...] (Sister) Level of Mobility: Ambulatory- community Mobility [place]: Independent gait with device History of Falls: [...] Mobility Bed Mobility Exam: Scooting/Bridging Level of [place]: Stand-by assist Physical/Nonphysical Assist: Supervision Assistive Device: Bed rails Bed Mobility Exam: Supine to Sit Level of [place]: Stand-by assist Physical/Nonphysical Assist: Supervision, HOB elevated Assistive Device: Bed rails Transfers Transfer Exam: Sit to stand Level of [place]: Contact guard Physical/Nonphysical Assist: Supervision, Verbal Cues, Minimal cues Assistive Device: Rollator Transfer Exam: Stand to Sit Level of [place]: Stand-by assist Physical/Nonphysical Assist: Supervision, Verbal Cues, Minimal cues Assistive Device: Rollator Toilet Transfer Level of [place]: Stand-by assist Physical/Nonphysical Assist: Supervision Type of [...] fatigue. Standardized Assessments Standardized Assessments Standardized Assessments: [facility] [address] 6-Clicks Mobility Assessment [facility] [address] 6-Clicks Mobility Assessment Difficulty patient has turning [...] 3-5 steps with a railing?: A little [facility] [address] 6-Clicks Mobility Assessment Total : 23 No [...] - Continue daily vit D 1000 U; 83646 U to be ordered on 06/30 if [...] mellitus, with long-term current use of insulin ([facility]) Diabetic peripheral neuropathy ([facility]) - BG 245 on arrival; last POCT [...] - Continue to hold omeprazole - Ordered DEPUTY CONTROLLER consult; appreciate recommendations Chronic obstructive pulmonary disease ([facility]) JONATHAN treated with BiPAP - Chronic; on BiPAP nightly at home - Sister is bringing home BiPAP this afternoon PLAN - Continue nightly BiPAP at 12/6 per RT recs; RT to adjust settings as appropriate Coronary artery disease of [place] artery of [place] heart with stable angina pectoris ([facility]) Hyperlipidemia - Chronic; Crestor discontinued [...] Code SOCIAL: Currently living with sister in [facility] PT/OT: consulted, appreciate recommendations Consultants: PT/OT, nutrition, nephro, hepato, IR Disposition: Medically Ready for Discharge: Anticipated in 2-4 Days [] Resolution of CARLOTTA [] PT/OT recommendations for placement Veronica Del Valle DO, Family Medicine, PGY-1 [facility] Cosigned by Chilo Morales MD at [...] daily, Vit D 1000 U daily and 03357 U weekly (Sundays) PLAN: - Admitted to [...] - Continue daily vit D 1000 U; 76766 U to be ordered on 06/30 if [...] daily, Vit D 1000 U daily and 37587 U weekly (Sundays) PLAN: - Admitted to [...] - Continue daily vit D 1000 U; 23077 U to be ordered on 06/30 if [...] daily, Vit D 1000 U daily and 28685 U weekly (Sundays) PLAN: - Admitted to [...] - Continue daily vit D 1000 U; 69299 U to be ordered on 06/30 if [...] daily, Vit D 1000 U daily and 38513 U weekly (Sundays) PLAN: - Admitted to [...] - Continue daily vit D 1000 U; 13312 U to be ordered on 06/30 if [...] daily, Vit D 1000 U daily and 84025 U weekly (Sundays) PLAN: - Admitted to [...] - Continue daily vit D 1000 U; 40008 U to be ordered on 06/30 if [...] daily, Vit D 1000 U daily and 96793 U weekly (Sundays) PLAN: - Admitted to [...] - Continue daily vit D 1000 U; 20708 U to be ordered on 06/30 if [...] AM EDTAssociated Problem(s): Coronary artery disease of [place] artery of [place] heart with stable angina pectoris (CMS/HCC) Crestor [...] mellitus, with long-term current use of insulin ([facility]) - Takes glargine 48 U daily and [...] PM EDT Associated Problem(s): Diabetic peripheral neuropathy ([facility]) - Takes glargine 48 U daily and [...] not limited to: EKG. On arrival to [facility], patient promptly evaluated by FM [...] daily, Vit D 1000 U daily and 03789 U weekly (Sundays) PLAN: - Admitted to [...] - Continue daily vit D 1000 U; 34663 U to be ordered on 06/30 if [...] mellitus, with long-term current use of insulin ([facility]) Diabetic peripheral neuropathy ([facility]) - Takes glargine 48 U daily and [...] continue to hold Chronic obstructive pulmonary disease ([facility]) JONATHAN treated with BiPAP Continue nightly BiPAP at 12/6 per RT recs; RT to adjust settings as appropriate Coronary artery disease of [place] artery of [place] heart with stable angina pectoris ([facility]) Hyperlipidemia Crestor discontinued at most recent nephrology [...] SOCIAL: Lives at home with family in [place], [place] PT/OT: consulted, appreciate recommendations Consultants: PT/OT Disposition: Medically Ready for Discharge:Anticipated in 2-4 Days [ ] Resolution of CARLOTTA [ ] PT/OT recs [ ] Clinical stability Dayne Medel DO, , MS Family Medicine, PGY-3 [facility] Blayne Ordaz DO PGY-2, Family Medicine [facility] Cosigned by Chilo Morales MD at [...] is a (an) 64 y.o. female with [facility] cirrhosis awaiting liver transplant, CKD, T2DM,COPD, CAD brought to the emergency department by EMS for worsening kidney function. She was seen byher white shoe examiner earlier today who noted she has had worsening kidney function with a baseline serum creatinine at about 1.4 which had risen to 2.3. Patient states she gets paracentesis once weekly every and sometimes also thoracentesis. She is compliant with her medications. She states she occasionally gets heart pain with shortness of breath for which she was seen at [facility] two days ago. She currently denies chest [...] draw Order ID Start Status Ordering Provider [id number] 06/26/25 0400 Final result ORDAZ, BLAYNE S [id number] 06/27/25 0400 Acknowledged ORDAZ, BLAYNE S 06/28/25 0400 Scheduled ORDAZ, BLAYNE S 06/29/25 0400 Scheduled ORDAZ, BLAYNE S 06/30/25 0400 Scheduled ORDAZ, BLAYNE S Acknowledged ORDAZ, BLAYNE S 06/25/25 193 Magnesium, Plasma Morning draw Order ID Start Status Ordering Provider [id number] 06/26/25 0400 Final result ORDAZ, BLAYNE S [id number] 06/27/25 0400 Acknowledged ORDAZ, BLAYNE S 06/28/25 0400 Scheduled ORDAZ, BLAYNE S 06/29/25 0400 Scheduled ORDAZ, BLAYNE S 06/30/25 0400 Scheduled ORDAZ, BLAYNE S Acknowledged ORDAZ, BLAYNE S 06/25/25 193 Phosphorus, Plasma Morning draw Order ID Start Status Ordering Provider [id number] 06/26/25 0400 Final result ORDAZ, BLAYNE S [id number] 06/27/25 0400 Acknowledged ORDAZ, BLAYNE S 06/28/25 0400 Scheduled ORDAZ, BLAYNE S 06/29/25 0400 Scheduled ORDAZ, BLAYNE S 06/30/25 0400 Scheduled ORDAZ, BLAYNE S Acknowledged ORDAZ, BLAYNE S 06/25/25 193 Comprehensive metabolic panel Morning draw Order ID Start Status Ordering Provider [id number] 06/26/25 0400 Final result BLAYNE ORDAZ [id number] 06/27/25 0400 Acknowledged BLAYNE ORDAZ 06/28/25 0400 [...] Medicine Provider: (Not yet assigned) Canceled SCOCCA, MILRDED L 06/25/25 1622 Once Canceled SCOCCA, MILDRED [...] she is usually always admitted here at [place] so that transplantis available. I discussed this with Internal Medicine (Dr. Magaña) who stated Transplant is available at [facility] as well as that patient could be transported to [facility] for her scheduled IR thoracentesis and paracentesis and then transferred back to [facility]. I discussed this with patient who is now agreeable for transfer to [facility] and admission to family medicine. I spoke with Family Medicine team at [facility] and they are agreeable to admit. Ultimately, this patient was Was admitted (Admission) There were no encounter diagnoses.. Patient believed to require admission for the listed diagnoses. The family medicine service was consulted for admission and was agreeable to admit to Acute Floor (Med/Surg). ED Prescriptions None Disposition Admit Admitting/Attending Physician: CHILO MORALES [[id number]] Provider Care Team: FAMILY MEDICINE [58] Are they the primary team?: Yes [1] - Randal Medina [facility] Medicine Candidate, 202506/26/2025 8:34 PM Cat DO [facility] Emergency Medicine PGY-3 [1] Past Medical History: Diagnosis Date ADHD (attention deficit hyperactivity disorder) Allergic Anxiety disorder, unspecified Anxiety Bleeding gums Blood in urine Cataract Chronic kidney disease Cirrhosis (CMS/HCC) Colon cancer screening 09/20/2019 Added automatically from request for surgery [id number] Coronary artery disease Depression 1996 Diabetes mellitus [...] 1979 BLADDER SURGERY N/A Bladder surgery from [facility] BREAST BIOPSY 2011 BREAST SURGERY 2010 BUNIONECTOMY Right CATARACT EXTRACTION Bilateral 2016 CHOLECYSTECTOMY 1979 ESOPHAGOGASTRODUODENOSCOPY HYSTERECTOMY N/A Hysterectomy from [facility] KNEE SURGERY Bilateral ORAL SURGERY N/A Oral [...] 06/25/2025 2:14 PM EDT PT was at [facility]. Staff notified PT of an abnormal lab value and encouraged immediate medical attention via Emergency Department. Vitals stable during transport. documented in this encounter Plan of Treatment Upcoming Encounters Date Type Department Care Team (Late st Contact Info) Description 08/20/2025 9:30 AM EDT Clinical Support [facility] [address] [facility] [address] [place] [address] 08/20/2025 10:30 AM EDT Social Work [facility] [address] [facility] [address] [place] [address] [place] [address] 08/20/2025 11:00 AM EDT Office Visit [facility] [address] [facility] [address] [place] [address] Jude Duque MD [address] [facility] [address] [place] [address] 08/22/2025 11:15 AM EDT Appointment [facility] [address] [place] [address] 08/22/2025 12:15 PM EDT Appointment [facility] [address] [place] [address] 08/26/2025 1:00 PM EDT Office Visit [facility] [address] [place] [phone] Miranda Hobson P, SECURITY INSTALLATION TECHNICIAN [address] [place] [phone] 08/29/2025 10:00 AM EDT Appointment [facility] [address] [place] [address] 08/29/2025 11:00 AM EDT Appointment [facility] [address] [place] [address] 09/05/2025 10:00 AM EDT Appointment [facility] [address] [place] [address] 09/05/2025 11:00 AM EDT Appointment [facility] [address] [place] [address] Scheduled Orders Name Type Priority Associated Diagnoses Orde r Schedule Body Fluid Culture and Gram Stain - Pleural Left Microbiology Routine Once (Lab) for 1 Occurrences starting 07/04/2025 until 07/04/2025 Scheduled Referrals Name Type Priority Associated Diagnoses Order Schedule Discharge Ambulatory referral to Family Medicine Outpatient Referral Routine [place] (acute kidney injury) ([facility]) Expected: 07/23/2025, Expires: 01/10/2027 documented [...] 07/09/2025 11:25 AM EDT [facility] Production Grip ID Nadia Salazar 11:25 AM EDT [facility] Device ID [id number] 07/09/2025 11:25 AM EDT [facility] Specimen Type POC Capillary 07/09/2025 11:25 AM EDT [facility] Blood Capillary blood specimen / Unknown 07/09/2025 11:23 AM EDT 07/09/2025 11:25 AM EDT Kayla Reed MD LAB POINT OF CARE TEST DOCKED DEVICE UNSOLICITED RESULTS Final Result Performing Organization Address City/[facility] de Phone Number [facility]ARE [facility] [address] [place] [address] * (ABNORMAL) POCT glucose meter (07/09/2025 8:10 [...] Comment 07/09/2025 8:12 AM EDT [facility] Production Grip ID Reyes Elias 07/09/2025 8:12 AM EDT HEALTHCARE LAB Device ID [id number] 07/09/2025 8:12 AM EDT [facility]ARE [facility] Specimen Type POC Capillary 07/09/2025 8:12 AM EDT [facility] Blood Capillary blood specimen / Unknown 07/09/2025 8:10 AM EDT 07/09/2025 8:12 AM EDT Kayla Reed MD LAB POINT OF CARE TEST DOCKED DEVICE UNSOLICITED RESULTS Final Result Performing Organization Address City/[facility] Co de Phone Number [facility]ALTH[facility]ARE [facility] [address] [place] [address] * (ABNORMAL) Protime-INR (07/09/2025 5:52 AM EDT) [...] INR 2.5 to 3.5 Prevention of recurrent [place] INR 2.5 to 3.5 us Fabiana Cunningham MD LAB BLOOD ORDERABLES Final Resu lt Performing Organization Address City/[facility]/ZIP Co de Phone Number [facility]ARE [facility] [address] [place] [address] * (ABNORMAL) POCT glucose meter (07/09/2025 3:59 AM EDT) [facility] Signature POCT Glucose 108(H) 74 - 99 [...] Comment 07/09/2025 4:01 AM EDT [facility]ALTHCARE [facility] Production Grip ID Love Gore 4:01 AM EDT HEALTHCARE LAB Device ID [id number] 07/09/2025 4:01 AM EDT [facility] Specimen Type POC Capillary 07/09/2025 4:01 AM EDT [facility] Blood Capillary blood specimen / Unknown 07/09/2025 3:59 AM EDT 07/09/2025 4:01 AM EDT us Kayla Reed MD LAB POINT OF CARE TEST DOCKED DEVICE UNSOLICITED RESULTS Final Result Performing Organization Address City/[facility]/ZIP Co de Phone Number [facility] [address] [place] [address] * (ABNORMAL) Comprehensive metabolic panel (07/09/2025 3:22 AM EDT) [facility] Glucose, Plasma 105(H) 74 - 99 mg/dL 07/09/2025 4:00 AM [facility] BUN, Plasma 22 8 - 23 mg/dL 07/09/2025 4:00 AM [facility] Creatinine, Plasma 1.22(H) 0.60 - 1.10 mg/dL 07/09/2025 4:00 AM [facility] BUN/Creatinine Ratio 18 07/09/2025 4:00 AM [facility] Sodium, Plasma 136 136 - 145 mmol/L 07/09/2025 4:00 AM [facility] Potassium, Plasma 4.1 3.6 - 4.9 mmol/L 07/09/2025 4:00 AM [facility] Chloride, Plasma 108(H) 97 - 107 mmol/L 07/09/2025 4:00 AM [facility] CO2, Plasma 18(L) 22 - 29 mmol/L 07/09/2025 4:00 AM [facility] Anion Gap 10 6 - 16 mmol/L 07/09/2025 4:00 AM [facility] Total Calcium, Plasma 8.5(L) 8.9 - 10.2 mg/dL 07/09/2025 4:00 AM [facility] Total Protein 6.2(L) 6.3 - 7.9 g/dL 07/09/2025 4:00 AM [facility] Albumin, Plasma 3.5 3.5 - 5.2 g/dL 07/09/2025 4:00 AM [facility] AST, Plasma 39(H) 10 - 35 U/L 07/09/2025 4:00 AM [facility] ALT, Plasma 19 10 - 35 U/L 07/09/2025 4:00 AM [facility] Alkaline Phosphatase, Plasma 170(H) 46 - 142 U/L 07/09/2025 4:00 AM [facility] Total Bilirubin, Plasma 2.7(H) 0.2 - 1.1 mg/dL 07/09/2025 4:00 AM [facility] eGFRcr 50.3 mL/min/1.7 3m*2 07/09/2025 4:00 AM [facility] Comment:Reported eGFRcr in m L/min/1.73m2 is based the CKD-EPI 2020 equation that does not use a race coefficient. Blood Venous blood specimen / Unknown Venipuncture / Unknown 07/09/2025 3:22 AM EDT 07/09/2025 3:39 AM EDT Chilo Morales MD LAB BLOOD ORDERABLES Final Result Performing Organization Address City/[facility] Co de Phone Number [facility] [address] [place] [address] * Phosphorus, Plasma (07/09/2025 3:22 AM EDT) Phosphorus, Plasma 3.6 2.5 - 4.5 mg/dL 07/09/2025 4:00 AM EDT [facility] Blood Venous blood specimen / Unknown Venipuncture / Unknown 07/09/2025 3:22 AM EDT 07/09/2025 3:39 AM EDT Chilo Morales MD LAB BLOOD ORDERABLES Final Result Performing Organization Address [facility] de Phone Number [facility] [address] [place] [phone] * Magnesium, Plasma (07/09/2025 3:22 AM EDT) Magnesium, Plasma 1.9 1.9 - 2.4 mg/dL 07/09/2025 4:00 AM EDT [facility] Blood Venous blood specimen / Unknown Venipuncture / Unknown 07/09/2025 3:22 AM EDT 07/09/2025 3:39 AM EDT us Chilo Morales MD LAB BLOOD ORDERABLES Final Result Performing Organization Address City/[facility] Co de Phone Number [facility] [address] [place] [address] * (ABNORMAL) CBC and Differential (07/09/2025 3:22 AM EDT) WBC Count 3.24(L) 3.70 - 10.30 10*3/uL LAB HEMATOLOGY METHOD 07/09/2025 3:42 AM EDT [facility] RBC Count 2.67(L) 3.90 - 5.20 10*6/uL LAB HEMATOLOGY METHOD 07/09/2025 3:42 AM EDT [facility] HGB 8.4(L) 11.2 - 15.7 g/dL LAB HEMATOLOGY METHOD 07/09/2025 3:42 AM EDT [facility] HCT 25.0(L) 34.0 - 45.0 % LAB HEMATOLOGY METHOD 07/09/2025 3:42 AM EDT [facility] Platelet Count 51(L) 155 - 369 10*3/uL LAB HEMATOLOGY METHOD 07/09/2025 3:42 AM EDT [facility]ALTH[facility]ARE [facility] MCV 94 79 - 98 fL LAB HEMATOLOGY METHOD 07/09/2025 3:42 AM EDT [facility] MCH 31.5 26.0 - 32.0 pg LAB HEMATOLOGY METHOD 07/09/2025 3:42 AM EDT [facility] MCHC 33.6 30.7 - 35.5 g/dL LAB HEMATOLOGY METHOD 07/09/2025 3:42 AM EDT [facility] RDW 16.2(H) 11.5 - 14.5 % LAB HEMATOLOGY METHOD 07/09/2025 3:42 AM EDT [facility] MPV 11.8 8.8 - 12.5 fL LAB HEMATOLOGY METHOD 07/09/2025 3:42 AM EDT [facility] nRBC 0.0 <=0.0 per 100 WBCs LAB HEMATOLOGY METHOD 07/09/2025 3:42 AM EDT [facility] Differential Type Automated LAB HEMATOLOGY METHOD 07/09/2025 3:42 AM EDT [facility] Neutrophils % 57 % LAB HEMATOLOGY METHOD 07/09/2025 3:42 AM EDT [facility] Lymphocytes % 23 % LAB HEMATOLOGY METHOD 07/09/2025 3:42 AM EDT [facility]ALTH[facility] Monocytes % 16 % LAB HEMATOLOGY METHOD 07/09/2025 3:42 AM EDT [facility] Eosinophils % 3 % LAB HEMATOLOGY METHOD 07/09/2025 3:42 AM EDT [facility] Basophils % 1 % LAB HEMATOLOGY METHOD 07/09/2025 3:42 AM EDT [facility] Immature Granulocytes % 0 [...] ORDERABLES Final Result [facility] [address] [place] [address] * (ABNORMAL) POCT glucose meter (07/08/2025 8:37 PM EDT) [facility] POCT Glucose 164(H) 74 - 99 mg/dL [...] 07/08/2025 8:39 PM EDT [facility] Production Grip ID Love Gore 8:39 PM EDT HEALTHCARE LAB Device ID [id number] 07/08/2025 8:39 PM EDT [facility]ARE LAB Specimen Type POC Capillary 07/08/2025 8:39 PM EDT [facility] Blood Capillary blood specimen / Unknown 07/08/2025 8:37 PM EDT 07/08/2025 8:39 PM EDT Kayla Reed MD LAB POINT OF CARE TEST DOCKED DEVICE UNSOLICITED RESULTS Final Result Performing Organization Address City/[facility]/ZIP Co de Phone Number [facility]ARE [facility] [address] [place] [address] * (ABNORMAL) POCT glucose meter (07/08/2025 4:42 PM EDT) [facility] POCT Glucose 276(H) 74 - 99 mg/dL [...] Comment 07/08/2025 4:45 PM EDT [facility]ARE [facility] Production Grip ID Candy Smith 07/08/2025 4:45 PM EDT HEALTHCARE LAB Device ID [id number] 07/08/2025 4:45 PM EDT [facility]ARE [facility] Specimen Type POC Capillary 07/08/2025 4:45 PM EDT [facility] Blood Capillary blood specimen / Unknown 07/08/2025 4:42 PM EDT 07/08/2025 4:45 PM EDT Kayla Reed MD LAB POINT OF CARE TEST DOCKED DEVICE UNSOLICITED RESULTS Final Result Performing Organization Address City/[facility]/ZIP Co de Phone Number [facility] [address] [place] [address] * (ABNORMAL) POCT glucose meter (07/08/2025 11:28 AM EDT) [facility] POCT Glucose 256(H) 74 - 99 mg/dL [...] Comment 07/08/2025 11:30 AM EDT [facility]ALTH[facility]ARE [facility] Production Grip ID Candy Smith 07/08/2025 11:30 AM EDT HEALTHCARE LAB Device ID [id number] 07/08/2025 11:30 AM EDT [facility]ALTH[facility]ARE LAB Specimen Type POC Capillary 07/08/2025 11:30 AM EDT [facility] Blood Capillary blood specimen / Unknown 07/08/2025 11:28 AM EDT 07/08/2025 11:30 AM EDT Kayla Reed MD LAB POINT OF CARE TEST DOCKED DEVICE UNSOLICITED RESULTS Final Result [facility] [address] [place] [address] * (ABNORMAL) POCT glucose meter (07/08/2025 8:02 AM EDT) [facility] POCT Glucose 174(H) 74 - 99 mg/dL [...] Comment 07/08/2025 8:05 AM EDT [facility]ALTHCARE [facility] Production Grip ID Candy Smith 07/08/2025 8:05 AM EDT HEALTHCARE LAB Device ID [id number] 07/08/2025 8:05 AM EDT [facility]ALTH[facility]ARE LAB Specimen Type POC Capillary 07/08/2025 8:05 AM EDT [facility] Blood Capillary blood specimen / Unknown 07/08/2025 8:02 AM EDT 07/08/2025 8:05 AM EDT Result [facility] Kayla Reed MD LAB POINT OF CARE TEST DOCKED DEVICE UNSOLICITED RESULTS Final Result Performing Organization Address City/[facility] Co de Phone Number [facility]ALTH[facility]ARE [facility] [address] [place] [address] * (ABNORMAL) Ammonia, Plasma (07/08/2025 4:21 AM EDT) Ammonia 146(H) 11 - 51 umol/L 07/08/2025 4:56 AM EDT [facility]ALTH[facility]ARE [facility] Blood Venous blood specimen / Unknown Venipuncture / Unknown 07/08/2025 4:21 AM EDT 07/08/2025 4:27 AM EDT Result [facility] Kayla Reed MD LAB BLOOD ORDERABLES Tari l Result Performing Organization Address City/[facility] de Phone Number [facility] [address] [place] [address] * (ABNORMAL) Protime-INR (07/08/2025 4:21 AM EDT) [...] INR 2.5 to 3.5 Prevention of recurrent [place] INR 2.5 to 3.5 Fabiana Cunningham MD LAB BLOOD ORDERABLES Final Resu lt [facility] [address] [place] [address] * (ABNORMAL) Comprehensive metabolic panel (07/08/2025 4:21 AM EDT) Glucose, Plasma 172(H) 74 - 99 mg/dL 07/08/2025 5:12 AM EDT [facility] BUN, Plasma 25(H) 8 - 23 mg/dL 07/08/2025 5:12 AM EDT [facility] Creatinine, Plasma 1.16(H) 0.60 - 1.10 mg/dL 07/08/2025 5:12 AM EDT [facility] BUN/Creatinine Ratio 22 07/08/2025 5:12 AM EDT [facility] Sodium, Plasma 135(L) 136 - 145 mmol/L 07/08/2025 5:12 AM EDT [facility] Potassium, Plasma 4.2 3.6 - 4.9 mmol/L 07/08/2025 5:12 AM EDT [facility] Chloride, Plasma 106 97 - 107 mmol/L 07/08/2025 5:12 AM EDT [facility] CO2, Plasma 19(L) 22 - 29 mmol/L 07/08/2025 5:12 AM EDT [facility] Anion Gap 10 6 - 16 mmol/L 07/08/2025 5:12 AM EDT [facility] Total Calcium, Plasma 8.5(L) 8.9 - 10.2 mg/dL 07/08/2025 5:12 AM EDT [facility] Total Protein 6.0(L) 6.3 - 7.9 g/dL 07/08/2025 5:12 AM EDT [facility] Albumin, Plasma 3.4(L) 3.5 - 5.2 g/dL 07/08/2025 5:12 AM EDT [facility] AST, Plasma 38(H) 10 - 35 U/L 07/08/2025 5:12 AM EDT [facility] ALT, Plasma 15 10 - 35 U/L 07/08/2025 5:12 AM EDT [facility] Alkaline Phosphatase, Plasma 167(H) [...] BLOOD ORDERABLES Final Result Performing Organization Address [facility] de Phone Number [facility] [address] [place] [address] * Phosphorus, Plasma (07/08/2025 4:21 AM EDT) Phosphorus, Plasma 3.3 2.5 - 4.5 mg/dL 07/08/2025 5:12 AM EDT [facility] Blood Venous blood specimen / Unknown Venipuncture / Unknown 07/08/2025 4:21 AM EDT 07/08/2025 4:28 AM EDT us Chilo Morales MD LAB BLOOD ORDERABLES Final Result Performing Organization Address City/[facility] de Phone Number [facility] [address] [place] [address] * Magnesium, Plasma (07/08/2025 4:21 AM EDT) Magnesium, Plasma 1.9 1.9 - 2.4 mg/dL 07/08/2025 5:12 AM EDT [facility] Blood Venous blood specimen / Unknown Venipuncture / Unknown 07/08/2025 4:21 AM EDT 07/08/2025 4:28 AM EDT us Chilo Morales MD LAB BLOOD ORDERABLES Final Result Performing Organization Address City/[facility] Co de Phone Number [facility] [address] [place] [address] * (ABNORMAL) CBC and Differential (07/08/2025 4:21 AM EDT) WBC Count 2.74(L) 3.70 - 10.30 10*3/uL LAB HEMATOLOGY METHOD 07/08/2025 4:34 AM EDT [facility] RBC Count 2.56(L) 3.90 - 5.20 10*6/uL LAB HEMATOLOGY METHOD 07/08/2025 4:34 AM EDT [facility] HGB 8.0(L) 11.2 - 15.7 g/dL LAB HEMATOLOGY METHOD 07/08/2025 4:34 AM EDT [facility] HCT 23.7(L) 34.0 - 45.0 % LAB HEMATOLOGY METHOD 07/08/2025 4:34 AM EDT [facility]ALTH[facility] Platelet Count 43(L) 155 - 369 10*3/uL LAB HEMATOLOGY METHOD 07/08/2025 4:34 AM EDT [facility] MCV 93 79 - 98 fL LAB HEMATOLOGY METHOD 07/08/2025 4:34 AM EDT [facility] MCH 31.3 26.0 - 32.0 pg LAB HEMATOLOGY METHOD 07/08/2025 4:34 AM EDT [facility] MCHC 33.8 30.7 - 35.5 g/dL LAB HEMATOLOGY METHOD 07/08/2025 4:34 AM EDT [facility] RDW 15.9(H) 11.5 - 14.5 % LAB HEMATOLOGY METHOD 07/08/2025 4:34 AM EDT [facility] MPV 10.4 8.8 - 12.5 fL LAB HEMATOLOGY METHOD 07/08/2025 4:34 AM EDT [facility] nRBC 0.0 <=0.0 per 100 WBCs LAB HEMATOLOGY METHOD 07/08/2025 4:34 AM EDT [facility] Differential Type Automated LAB [...] LAB HEMATOLOGY METHOD 07/08/2025 4:34 AM EDT [facility] Immature Granulocytes % 0 % LAB HEMATOLOGY METHOD 07/08/2025 4:34 AM EDT [facility] Neutrophils Absolute 1.52(L) 1.60 - 6.10 10*3/uL LAB HEMATOLOGY METHOD 07/08/2025 4:34 AM EDT [facility]ALTH[facility] Lymphocytes Absolute 0.62(L) 1.20 - 3.90 10*3/uL LAB HEMATOLOGY METHOD 07/08/2025 4:34 AM EDT [facility] Monocytes Absolute 0.50 0.30 - 0.90 10*3/uL LAB HEMATOLOGY METHOD 07/08/2025 4:34 AM EDT [facility] Eosinophils Absolute 0.08 0.00 - 0.50 10*3/uL LAB HEMATOLOGY METHOD 07/08/2025 4:34 AM EDT [facility] Basophils Absolute 0.02 0.00 - [...] ORDERABLES Final Result [facility] [address] [place] [address] * (ABNORMAL) POCT glucose meter (07/07/2025 8:29 PM EDT) [facility] Signature POCT Glucose 246(H) 74 - 99 [...] 07/07/2025 8:30 PM EDT [facility] Production Grip ID Love Gore 8:30 PM EDT [facility] Device ID [id number] 07/07/2025 8:30 PM EDT [facility]ALTH[facility]ARE LAB Specimen Type POC Capillary 07/07/2025 8:30 PM EDT [facility] Blood Capillary blood specimen / Unknown 07/07/2025 8:29 PM EDT 07/07/2025 8:30 PM EDT Kayla Reed MD LAB POINT OF CARE TEST DOCKED DEVICE UNSOLICITED RESULTS Final Result [facility] [address] [place] [address] * (ABNORMAL) POCT glucose meter (07/07/2025 4:43 PM EDT) [facility] POCT Glucose 255(H) 74 - 99 [...] Comment 07/07/2025 4:44 PM EDT HEALTH[facility]ARE LAB Production Grip ID Allen Titus 07/07/2025 4:44 PM EDT [facility]ALTH[facility]ARE LAB Device ID [id number] 07/07/2025 4:44 PM EDT [facility] Specimen Type POC Capillary 07/07/2025 4:44 PM EDT [facility] Blood Capillary blood specimen / Unknown 07/07/2025 4:43 PM EDT 07/07/2025 4:44 PM EDT Kayla Reed MD LAB POINT OF CARE TEST DOCKED DEVICE UNSOLICITED RESULTS Final Result Performing Organization Address [facility] Co de Phone Number [facility] [address] [place] [address] * (ABNORMAL) POCT glucose meter (07/07/2025 1:36 PM EDT) [facility] POCT Glucose 213(H) 74 - 99 mg/dL [...] Comment 07/07/2025 1:37 PM EDT [facility]ALTH[facility]ARE [facility] Production Grip ID Allen Titus 07/07/2025 1:37 PM EDT HEALTH[facility]ARE LAB Device ID [id number] 07/07/2025 1:37 PM EDT [facility] LAB Specimen Type POC Capillary 07/07/2025 1:37 PM EDT [facility] Blood Capillary blood specimen / Unknown 07/07/2025 1:36 PM EDT 07/07/2025 1:37 PM EDT Kayla Reed MD LAB POINT OF CARE TEST DOCKED DEVICE UNSOLICITED RESULTS Final Result Performing Organization Address [facility] de Phone Number [facility] [address] [place] [address] * (ABNORMAL) POCT glucose meter (07/07/2025 11:54 AM EDT) [facility] POCT Glucose 198(H) 74 - 99 mg/dL [...] 07/07/2025 11:56 AM EDT [facility] Production Grip ID Allen Titus 07/07/2025 11:56 AM EDT HEALTHCARE LAB Device ID [id number] 07/07/2025 11:56 AM EDT [facility]ALTH[facility]ARE LAB Specimen Type POC Capillary 07/07/2025 11:56 AM EDT [facility] Blood Capillary blood specimen / Unknown 07/07/2025 11:54 AM EDT 07/07/2025 11:56 AM EDT Kayla Reed MD LAB POINT OF CARE TEST DOCKED DEVICE UNSOLICITED RESULTS Final Result Performing Organization Address City/[facility] Co de Phone Number [facility] [address] [place] [address] * (ABNORMAL) POCT glucose meter (07/07/2025 8:01 AM EDT) [facility] POCT Glucose 141(H) 74 - 99 mg/dL [...] Comment 07/07/2025 8:02 AM EDT [facility]ALTH[facility]ARE [facility] Production Grip ID Allen Titus 07/07/2025 8:02 AM EDT HEALTH[facility]ARE LAB Device ID [id number] 07/07/2025 8:02 AM EDT [facility]ALTH[facility]ARE LAB Specimen Type POC Capillary 07/07/2025 8:02 AM EDT [facility] Blood Capillary blood specimen / Unknown 07/07/2025 8:01 AM EDT 07/07/2025 8:02 AM EDT Kayla Reed MD LAB POINT OF CARE TEST DOCKED DEVICE UNSOLICITED RESULTS Final Result Performing Organization Address City/[facility]/ZIP Co de Phone Number [facility] [address] [place] [address] * (ABNORMAL) Protime-INR (07/07/2025 3:30 AM EDT) Pathologist [facility] Prothrombin Time 22.9(H) 12.0 - 14.3 sec 07/07/2025 4:18 AM EDT [facility] INR 2.0(H) 0.9 - 1.1 07/07/2025 4:18 AM EDT [facility] Blood Venous blood specimen / Unknown Venipuncture / Unknown 07/07/2025 3:30 AM EDT 07/07/2025 3:54 AM EDT [facility] LAB - 07/07/2025 4:18 AM EDT OPTIMAL INR RANGES FOR PATIENT ON ORAL ANTICOAGULANT THERAPY Prevention of venous thromboembolism INR 2.0 to 3.0 In patients with heart disease: Atrial fibrillation INR 2.0 to 3.0 Valvular heart disease INR 2.0 to 3.0 Tissue heart valves INR 2.0 to 3.0 Mechanical prosthetic valves INR 2.5 to 3.5 Prevention of recurrent [place] INR 2.5 to 3.5 us Fabiana Cunningham MD LAB BLOOD ORDERABLES Final Resu lt [facility] [address] [place] [address] * (ABNORMAL) Comprehensive metabolic panel (07/07/2025 3:30 AM EDT) Pathologist [facility] Glucose, Plasma 151(H) 74 - 99 mg/dL 07/07/2025 4:21 AM EDT [facility] BUN, Plasma 26(H) 8 - 23 mg/dL 07/07/2025 4:21 AM EDT [facility] Creatinine, Plasma 1.20(H) 0.60 - 1.10 mg/dL 07/07/2025 4:21 AM EDT [facility] BUN/Creatinine Ratio 22 07/07/2025 4:21 AM EDT [facility] Sodium, Plasma 140 136 - 145 mmol/L 07/07/2025 4:21 AM EDT [facility] Potassium, Plasma 4.0 3.6 - 4.9 mmol/L 07/07/2025 4:21 AM EDT [facility] Chloride, Plasma 110(H) 97 - 107 mmol/L 07/07/2025 4:21 AM EDT [facility] CO2, Plasma 19(L) 22 - 29 mmol/L 07/07/2025 4:21 AM EDT [facility] Anion Gap 11 6 - 16 mmol/L 07/07/2025 4:21 AM EDT [facility] Total Calcium, Plasma 8.7(L) 8.9 - 10.2 mg/dL 07/07/2025 4:21 AM EDT [facility] Total Protein 5.9(L) 6.3 - 7.9 g/dL 07/07/2025 4:21 AM EDT [facility] Albumin, Plasma 3.5 3.5 - 5.2 g/dL 07/07/2025 4:21 AM EDT [facility] AST, Plasma 31 10 - 35 U/L 07/07/2025 4:21 AM EDT [facility] ALT, Plasma 13 10 - 35 U/L 07/07/2025 4:21 AM EDT [facility] Alkaline Phosphatase, Plasma 144(H) 46 - 142 U/L 07/07/2025 4:21 AM EDT [facility] Total Bilirubin, Plasma 2.9(H) 0.2 - 1.1 mg/dL 07/07/2025 4:21 AM EDT [facility] eGFRcr 51.3 mL/min/1.7 3m*2 07/07/2025 4:21 AM EDT [facility] Comment:Reported eGFRcr in m L/min/1.73m2 is based the CKD-EPI 2020 equation that does not use a race coefficient. Blood Venous blood specimen / Unknown Venipuncture / Unknown 07/07/2025 3:30 AM EDT 07/07/2025 3:53 AM EDT us Chilo Morales MD LAB BLOOD ORDERABLES Final Result [facility] [address] [place] [address] * Phosphorus, Plasma (07/07/2025 3:30 AM EDT) Pathologist [facility] Phosphorus, Plasma 3.6 2.5 - 4.5 mg/dL 07/07/2025 4:21 AM EDT [facility] Blood Venous blood specimen / Unknown Venipuncture / Unknown 07/07/2025 3:30 AM EDT 07/07/2025 3:53 AM EDT us Chilo Morales MD LAB BLOOD ORDERABLES Final Result Performing Organization Address City/[facility]/ZIP Co de Phone Number [facility]ALTHCARE [facility] [address] [place] [address] * Magnesium, Plasma (07/07/2025 3:30 AM EDT) Pathologist [facility] Magnesium, Plasma 1.9 1.9 - 2.4 mg/dL 07/07/2025 4:21 AM EDT [facility] Blood Venous blood specimen / Unknown Venipuncture / Unknown 07/07/2025 3:30 AM EDT 07/07/2025 3:53 AM EDT Chilo Morales MD LAB BLOOD ORDERABLES Final Result Performing Organization Address [facility] de Phone Number [facility] [address] [place] [address] * (ABNORMAL) CBC and Differential (07/07/2025 3:30 AM EDT) Pathologist [facility] WBC Count 2.65(L) 3.70 - 10.30 10*3/uL LAB HEMATOLOGY METHOD 07/07/2025 4:00 AM EDT [facility] RBC Count 2.56(L) 3.90 - 5.20 10*6/uL LAB HEMATOLOGY METHOD 07/07/2025 4:00 AM EDT [facility] HGB 8.0(L) 11.2 - 15.7 g/dL LAB HEMATOLOGY METHOD 07/07/2025 4:00 AM EDT [facility] HCT 23.8(L) 34.0 - 45.0 % LAB HEMATOLOGY METHOD 07/07/2025 4:00 AM EDT [facility] Platelet Count 46(L) 155 - 369 10*3/uL LAB HEMATOLOGY METHOD 07/07/2025 4:00 AM EDT [facility] MCV 93 79 - 98 fL LAB HEMATOLOGY METHOD 07/07/2025 4:00 AM EDT [facility] MCH 31.3 26.0 - 32.0 pg LAB HEMATOLOGY METHOD 07/07/2025 4:00 AM EDT [facility] MCHC 33.6 30.7 - 35.5 g/dL LAB HEMATOLOGY METHOD 07/07/2025 4:00 AM EDT [facility] RDW 15.9(H) 11.5 - 14.5 % LAB HEMATOLOGY METHOD 07/07/2025 4:00 AM EDT [facility] MPV 10.9 8.8 - 12.5 fL LAB HEMATOLOGY METHOD 07/07/2025 4:00 AM EDT [facility] nRBC 0.0 <=0.0 per 100 WBCs LAB HEMATOLOGY METHOD 07/07/2025 4:00 AM EDT [facility] Differential Type Automated LAB HEMATOLOGY METHOD 07/07/2025 4:00 AM EDT [facility] Neutrophils % 57 % LAB HEMATOLOGY METHOD 07/07/2025 4:00 AM EDT [facility] Lymphocytes % 24 % LAB HEMATOLOGY METHOD 07/07/2025 4:00 AM EDT [facility] Monocytes % 16 % LAB HEMATOLOGY METHOD 07/07/2025 4:00 AM EDT [facility] Eosinophils % 3 % LAB HEMATOLOGY METHOD 07/07/2025 4:00 AM EDT [facility] Basophils % 0 % LAB HEMATOLOGY METHOD 07/07/2025 4:[facility] Immature Granulocytes % 0 % LAB HEMATOLOGY METHOD 07/07/2025 4:00 AM [facility] Neutrophils Absolute 1.48(L) 1.60 - 6.10 10*3/uL LAB HEMATOLOGY METHOD 07/07/2025 4:00 AM [facility] Lymphocytes Absolute 0.63(L) 1.20 - 3.90 10*3/uL LAB HEMATOLOGY METHOD 07/07/2025 4:00 AM EDT [facility] Monocytes Absolute 0.43 0.30 - 0.90 10*3/uL LAB HEMATOLOGY METHOD 07/07/2025 4:00 AM EDT [facility] Eosinophils Absolute 0.09 0.00 - 0.50 10*3/uL LAB HEMATOLOGY METHOD 07/07/2025 4:00 AM EDT [facility] Basophils Absolute 0.01 0.00 - 0.10 10*3/uL LAB HEMATOLOGY METHOD 07/07/2025 4:00 AM [facility] Immature Granulocytes Absolute 0.01 0.00 - 0.06 10*3/uL LAB HEMATOLOGY METHOD 07/07/2025 4:00 AM [facility] Blood Venous blood specimen / Unknown Venipuncture / Unknown 07/07/2025 3:30 AM EDT 07/07/2025 3:54 AM EDT Narrative HEALTHCARE LAB - 07/07/2025 4:00 AM EDT Therapeutic decision making should be based on absolute values, rather than percentages. us Chilo Morales MD LAB BLOOD ORDERABLES Final Result [facility] [address] [place] [address] * (ABNORMAL) POCT glucose meter (07/06/2025 8:03 [...] Comment 07/06/2025 8:05 PM EDT [facility]ALTH[facility]ARE LAB Production Grip ID Camelia Rodriguez 07/06/2025 8:05 PM EDT [facility]ARE LAB Device ID [id number] 07/06/2025 8:05 PM EDT [facility] Specimen Type POC Capillary 07/06/2025 8:05 PM EDT [facility] Blood Capillary blood specimen / Unknown 07/06/2025 8:03 PM EDT 07/06/2025 8:05 PM EDT us Kayla Reed MD LAB POINT OF CARE TEST DOCKED DEVICE UNSOLICITED RESULTS Final Result [facility] [address] [place] [address] * (ABNORMAL) POCT glucose meter (07/06/2025 4:54 [...] Comment 07/06/2025 4:56 PM EDT [facility] Production Grip ID Fabiana Wilkins 07/06/20 4:56 PM EDT HEALTHCARE LAB Device ID [id number] 07/06/2025 4:56 PM EDT [facility]ARE LAB Specimen Type POC Capillary 07/06/2025 4:56 PM EDT [facility] Blood Capillary blood specimen / Unknown 07/06/2025 4:54 PM EDT 07/06/2025 4:56 PM EDT Kayla Reed MD LAB POINT OF CARE TEST DOCKED DEVICE UNSOLICITED RESULTS Final Result Performing Organization Address City/State/[facility] Co de Phone Number [facility]ARE [facility] [address] [place] [address] * (ABNORMAL) POCT glucose meter (07/06/2025 11:37 AM EDT) [facility] Signature POCT Glucose 165(H) 74 - 99 [...] Comment 07/06/2025 11:39 AM EDT [facility]ALTH[facility]ARE LAB Production Grip ID Fabiana Wilkins 07/06/20 11:39 AM EDT HEALTH[facility]ARE LAB Device ID [id number] 07/06/2025 11:39 AM EDT [facility]ALTH[facility]ARE LAB Specimen Type POC Capillary 07/06/2025 11:39 AM EDT [facility] Blood Capillary blood specimen / Unknown 07/06/2025 11:37 AM EDT 07/06/2025 11:39 AM EDT us Kayla M Kudrimoti MD LAB POINT OF CARE TEST DOCKED DEVICE UNSOLICITED RESULTS Final Result Performing Organization Address City/[facility] Co de Phone Number [facility] [address] [place] [address] * (ABNORMAL) POCT glucose meter (07/06/2025 8:19 [...] Comment 07/06/2025 8:23 AM EDT [facility]ALTH[facility]ARE LAB Production Grip ID Fabiana Wilkins 07/06/20 8:23 AM EDT [facility] Device ID [id number] 07/06/2025 8:23 AM EDT [facility]ARE LAB Specimen Type POC Capillary 07/06/2025 8:23 AM EDT [facility] Blood Capillary blood specimen / Unknown 07/06/2025 8:19 AM EDT 07/06/2025 8:23 AM EDT Kayla Reed MD LAB POINT OF CARE TEST DOCKED DEVICE UNSOLICITED RESULTS Final Result Performing Organization Address City/[facility] Co de Phone Number [facility] [address] [place] [address] * (ABNORMAL) Protime-INR (07/06/2025 2:31 AM EDT) [...] INR 2.5 to 3.5 Prevention of recurrent [place] INR 2.5 to 3.5 us Fabiana Cunningham MD LAB BLOOD ORDERABLES Final Resu lt [facility] [address] [place] [address] * (ABNORMAL) Comprehensive metabolic panel (07/06/2025 2:31 AM EDT) Glucose, Plasma 128(H) 74 - 99 mg/dL 07/06/2025 2:58 AM EDT [facility] BUN, Plasma 25(H) 8 - 23 mg/dL 07/06/2025 2:58 AM EDT [facility] Creatinine, Plasma 1.18(H) 0.60 - 1.10 mg/dL 07/06/2025 2:58 AM EDT [facility] BUN/Creatinine Ratio 21 07/06/2025 2:58 AM EDT [facility] Sodium, Plasma 141 136 - 145 mmol/L 07/06/2025 2:58 AM EDT [facility] Potassium, Plasma 4.4 3.6 - 4.9 mmol/L 07/06/2025 2:58 AM EDT [facility] Chloride, Plasma 111(H) 97 - 107 mmol/L 07/06/2025 2:58 AM EDT [facility] CO2, Plasma 17(L) 22 - 29 mmol/L 07/06/2025 2:58 AM EDT [facility] Anion Gap 13 6 - 16 mmol/L 07/06/2025 2:58 AM EDT [facility] Total Calcium, Plasma 8.6(L) 8.9 - 10.2 mg/dL 07/06/2025 2:58 AM EDT [facility] Total Protein 5.9(L) 6.3 - 7.9 g/dL 07/06/2025 2:58 AM EDT [facility] Albumin, Plasma 3.6 3.5 - 5.2 g/dL 07/06/2025 2:58 AM EDT [facility] AST, Plasma 36(H) 10 - 35 U/L 07/06/2025 2:58 AM EDT [facility] Comment:Hemolyzed, result ma y be falsely increased. ALT, Plasma 13 10 - 35 U/L 07/06/2025 2:58 AM EDT [facility] Alkaline Phosphatase, Plasma 129 46 - 142 U/L 07/06/2025 2:58 AM EDT [facility] Total Bilirubin, Plasma 3.2(H) 0.2 - 1.1 mg/dL 07/06/2025 2:58 AM EDT [facility] eGFRcr 52.3 mL/min/1.7 3m*2 07/06/2025 2:58 AM EDT [facility] Comment:Reported eGFRcr in m L/min/1.73m2 is based the CKD-EPI 2020 equation that does not use a race coefficient. Blood Venous blood specimen / Unknown Venipuncture / Unknown 07/06/2025 2:31 AM EDT 07/06/2025 2:36 AM EDT us Chilo Morales MD LAB BLOOD ORDERABLES Final Result Performing Organization Address City/[facility] Co de Phone Number [facility]ARE [facility] [address] [place] [address] * Phosphorus, Plasma (07/06/2025 2:31 AM EDT) Phosphorus, Plasma 3.1 2.5 - 4.5 mg/dL 07/06/2025 2:58 AM EDT [facility] Blood Venous blood specimen / Unknown Venipuncture / Unknown 07/06/2025 2:31 AM EDT 07/06/2025 2:36 AM EDT us Chilo Morales MD LAB BLOOD ORDERABLES Final Result [facility] [address] [place] [address] * (ABNORMAL) Magnesium, Plasma (07/06/2025 2:31 AM EDT) Pathologist [facility] Magnesium, Plasma 1.7(L) 1.9 - 2.4 mg/dL 07/06/2025 2:58 AM EDT [facility] Blood Venous blood specimen / Unknown Venipuncture / Unknown 07/06/2025 2:31 AM EDT 07/06/2025 2:36 AM EDT Chilo Morales MD LAB BLOOD ORDERABLES Final Result [facility] [address] [place] [id number] * (ABNORMAL) CBC and Differential (07/06/2025 2:31 AM EDT) [facility] WBC Count 2.99(L) 3.70 - 10.30 10*3/uL LAB HEMATOLOGY METHOD 07/06/2025 2:53 AM EDT [facility] RBC Count 2.51(L) 3.90 - 5.20 10*6/uL LAB HEMATOLOGY METHOD 07/06/2025 2:53 AM EDT [facility] HGB 7.8(L) 11.2 - 15.7 g/dL LAB HEMATOLOGY METHOD 07/06/2025 2:53 AM EDT [facility] HCT 23.6(L) 34.0 - 45.0 % LAB HEMATOLOGY METHOD 07/06/2025 2:53 AM EDT [facility] Platelet Count 49(L) 155 - 369 10*3/uL LAB HEMATOLOGY METHOD 07/06/2025 2:53 AM EDT [facility] MCV 94 79 - 98 fL LAB HEMATOLOGY METHOD 07/06/2025 2:53 AM EDT [facility] Comment:Results inconsistent with previous lab findings. MCH 31.1 26.0 - 32.0 pg LAB HEMATOLOGY METHOD 07/06/2025 2:53 AM EDT [facility] MCHC 33.1 30.7 - 35.5 g/dL LAB HEMATOLOGY METHOD 07/06/2025 2:53 AM EDT [facility] RDW 15.8(H) 11.5 - 14.5 % LAB HEMATOLOGY METHOD 07/06/2025 2:53 AM EDT [facility] MPV 11.7 8.8 - 12.5 fL LAB HEMATOLOGY METHOD 07/06/2025 2:53 AM EDT [facility] nRBC 0.0 <=0.0 per 100 WBCs LAB HEMATOLOGY METHOD 07/06/2025 2:53 AM EDT [facility] Differential Type Automated LAB HEMATOLOGY METHOD 07/06/2025 2:53 AM EDT [facility] Neutrophils % 58 % LAB HEMATOLOGY METHOD 07/06/2025 2:53 AM EDT [facility] Lymphocytes % 22 % LAB HEMATOLOGY METHOD 07/06/2025 2:53 AM EDT [facility] Monocytes % 16 % LAB HEMATOLOGY METHOD 07/06/2025 2:53 AM EDT [facility] Eosinophils % 3 % LAB HEMATOLOGY METHOD 07/06/2025 2:53 AM EDT [facility] Basophils % 1 % LAB HEMATOLOGY METHOD 07/06/2025 2:53 AM EDT [facility] Immature Granulocytes % 0 % LAB HEMATOLOGY METHOD 07/06/2025 2:53 AM EDT [facility] Neutrophils Absolute 1.73 1.60 - 6.10 10*3/uL LAB HEMATOLOGY METHOD 07/06/2025 2:53 AM EDT [facility] Lymphocytes Absolute 0.67(L) 1.20 - 3.90 10*3/uL LAB HEMATOLOGY METHOD 07/06/2025 2:53 AM EDT [facility] Monocytes Absolute 0.47 0.30 - 0.90 10*3/uL LAB HEMATOLOGY METHOD 07/06/2025 2:53 AM EDT [facility] Eosinophils Absolute 0.08 0.00 - 0.50 10*3/uL LAB HEMATOLOGY METHOD 07/06/2025 2:53 AM EDT [facility] Basophils Absolute 0.03 0.00 - 0.10 10*3/uL LAB HEMATOLOGY METHOD 07/06/2025 2:53 AM EDT [facility] Immature Granulocytes Absolute 0.01 0.00 - 0.06 10*3/uL LAB HEMATOLOGY METHOD 07/06/2025 2:53 AM EDT [facility] Blood Venous blood specimen / Unknown Venipuncture / Unknown 07/06/2025 2:31 AM EDT 07/06/2025 2:36 AM EDT Narrative HEALTHCARE LAB - 07/06/2025 2:53 AM EDT Therapeutic decision making should be based on absolute values, rather than percentages. Chilo Morales MD LAB BLOOD ORDERABLES Final Result [facility] [address] [place] [address] * (ABNORMAL) POCT glucose meter (07/05/2025 8:06 PM EDT) [facility] POCT Glucose 162(H) 74 - 99 mg/dL [...] Comment 07/05/2025 8:08 PM EDT HEALTHCARE LAB Production Grip ID Rodriguez Camelia 07/05/2025 8:08 PM EDT HEALTHCARE LAB Device ID [id number] 07/05/2025 8:08 PM EDT [facility] Specimen Type POC Capillary 07/05/2025 8:08 PM EDT [facility] Blood Capillary blood specimen / Unknown 07/05/2025 8:06 PM EDT 07/05/2025 8:08 PM EDT Kayla Reed MD LAB POINT OF CARE TEST DOCKED DEVICE UNSOLICITED RESULTS Final Result Performing Organization Address City/[facility]/ZIP Co de Phone Number [facility] [address] [place] [address] * (ABNORMAL) POCT glucose meter (07/05/2025 4:46 PM EDT) [facility] POCT Glucose 171(H) 74 - 99 mg/dL [...] 07/05/2025 4:48 PM EDT [facility] Production Grip ID Fredy Field 4:48 PM EDT HEALTHCARE LAB Device ID [id number] 07/05/2025 4:48 PM EDT HEALTHCARE LAB Specimen Type POC Capillary 07/05/2025 4:48 PM EDT [facility]ARE LAB Blood Capillary blood specimen / Unknown 07/05/2025 4:46 PM EDT 07/05/2025 4:48 PM EDT us Fabiana Cunningham MD LAB POINT OF CARE TE ST DOCKED DEVICE UNSOLICITED RESULTS Final Result Performing Organization Address City/[facility] Co de Phone Number [facility] [address] [place] [address] * (ABNORMAL) POCT glucose meter (07/05/2025 11:53 AM EDT) [facility] POCT Glucose 192(H) 74 - 99 mg/dL [...] Comment 07/05/2025 11:54 AM EDT HEALTHCARE LAB Production Grip ID Fredy Field 11:54 AM EDT [facility]ALTHCARE LAB Device ID [id number] 07/05/2025 11:54 AM EDT HEALTHCARE LAB Specimen Type POC Capillary 07/05/2025 11:54 AM EDT [facility] Blood Capillary blood specimen / Unknown 07/05/2025 11:53 AM EDT 07/05/2025 11:54 AM EDT us Fabiana Cunningham MD LAB POINT OF CARE TE ST DOCKED DEVICE UNSOLICITED RESULTS Final Result Performing Organization Address City/[facility] Co de Phone Number [facility] [address] [place] [address] * (ABNORMAL) POCT glucose meter (07/05/2025 7:52 AM EDT) Pathologist [facility] POCT Glucose 132(H) 74 - 99 mg/dL [...] Comment 07/05/2025 7:54 AM EDT HEALTHCARE LAB Production Grip ID Fredy Field 7:54 AM EDT HEALTHCARE LAB Device ID [id number] 07/05/2025 7:54 AM EDT [facility]ALTH[facility]ARE LAB Specimen Type POC Capillary 07/05/2025 7:54 AM EDT [facility] LAB Blood Capillary blood specimen / Unknown 07/05/2025 7:52 AM EDT 07/05/2025 7:54 AM EDT Fabiana Cunningham MD LAB POINT OF CARE TE ST DOCKED DEVICE UNSOLICITED RESULTS Final Result [facility] [address] [place] [address] * (ABNORMAL) Protime-INR (07/05/2025 4:01 AM EDT) [facility] Prothrombin Time 24.0(H) 12.0 - 14.3 sec [...] INR 2.5 to 3.5 Prevention of recurrent [place] INR 2.5 to 3.5 us Fabiana Cunningham MD LAB BLOOD ORDERABLES Final Resu lt [facility] [address] [place] [address] * (ABNORMAL) Comprehensive metabolic panel (07/05/2025 4:01 AM EDT) Glucose, Plasma 147(H) 74 - 99 mg/dL 07/05/2025 4:48 AM EDT [facility] BUN, Plasma 28(H) 8 - 23 mg/dL 07/05/2025 4:48 AM EDT [facility] Creatinine, Plasma 1.25(H) 0.60 - 1.10 mg/dL 07/05/2025 4:48 AM EDT [facility] BUN/Creatinine Ratio 22 07/05/2025 4:48 AM EDT [facility] Sodium, Plasma 142 136 - 145 mmol/L 07/05/2025 4:48 AM EDT [facility] Potassium, Plasma 4.2 3.6 - 4.9 mmol/L 07/05/2025 4:48 AM EDT [facility] Chloride, Plasma 115(H) 97 - 107 mmol/L 07/05/2025 4:48 AM EDT [facility] CO2, Plasma 16(L) 22 - 29 mmol/L 07/05/2025 4:48 AM EDT [facility] Anion Gap 11 6 - 16 mmol/L 07/05/2025 4:48 AM EDT [facility] Total Calcium, Plasma 8.4(L) 8.9 - 10.2 mg/dL 07/05/2025 4:48 AM EDT [facility] Total Protein 6.0(L) 6.3 - 7.9 g/dL 07/05/2025 4:48 AM EDT [facility] Albumin, Plasma 3.7 3.5 - 5.2 g/dL 07/05/2025 4:48 AM EDT [facility] AST, Plasma 31 10 - 35 U/L 07/05/2025 4:48 AM EDT [facility] ALT, Plasma 11 10 - 35 U/L 07/05/2025 4:48 AM EDT [facility] Alkaline Phosphatase, Plasma 128 46 [...] BLOOD ORDERABLES Final Result Performing Organization Address City/[facility] Co de Phone Number [facility] [address] [place] [address] * Phosphorus, Plasma (07/05/2025 4:01 AM EDT) Phosphorus, Plasma 2.9 2.5 - 4.5 mg/dL 07/05/2025 4:48 AM EDT [facility]ALTH[facility] LAB Blood Venous blood specimen / Unknown Venipuncture / Unknown 07/05/2025 4:01 AM EDT 07/05/2025 4:24 AM EDT us Chilo Morales MD LAB BLOOD ORDERABLES Final Result Performing Organization Address City/[facility] Co de Phone Number [facility] [address] [place] [address] * (ABNORMAL) Magnesium, Plasma (07/05/2025 4:01 AM EDT) Magnesium, Plasma 1.8(L) 1.9 - 2.4 mg/dL 07/05/2025 4:48 AM EDT [facility] Blood Venous blood specimen / Unknown Venipuncture / Unknown 07/05/2025 4:01 AM EDT 07/05/2025 4:24 AM EDT us Chilo Morales MD LAB BLOOD ORDERABLES Final Result [facility] [address] [place] [address] * (ABNORMAL) CBC and Differential (07/05/2025 4:01 AM EDT) WBC Count 2.91(L) 3.70 - 10.30 10*3/uL LAB HEMATOLOGY METHOD 07/05/2025 4:35 AM EDT [facility] RBC Count 2.55(L) 3.90 - 5.20 10*6/uL LAB HEMATOLOGY METHOD 07/05/2025 4:35 AM EDT [facility] HGB 8.0(L) 11.2 - 15.7 g/dL LAB HEMATOLOGY METHOD 07/05/2025 4:35 AM EDT [facility] HCT 25.3(L) 34.0 - 45.0 % LAB HEMATOLOGY METHOD 07/05/2025 4:35 AM EDT [facility] Platelet Count 46(L) 155 - 369 10*3/uL LAB HEMATOLOGY METHOD 07/05/2025 4:35 AM EDT [facility] MCV 99(H) 79 - 98 fL LAB HEMATOLOGY METHOD 07/05/2025 4:35 AM EDT [facility] Comment:Results inconsistent with previous lab findings. MCH 31.4 26.0 - 32.0 pg LAB HEMATOLOGY METHOD 07/05/2025 4:35 AM EDT [facility] MCHC 31.6 30.7 - 35.5 g/dL LAB HEMATOLOGY METHOD 07/05/2025 4:35 AM EDT [facility] RDW 15.9(H) 11.5 - 14.5 % LAB HEMATOLOGY METHOD 07/05/2025 4:35 AM EDT [facility] MPV 11.4 8.8 - 12.5 fL LAB HEMATOLOGY METHOD 07/05/2025 4:35 AM EDT [facility] nRBC 0.0 <=0.0 per 100 WBCs LAB HEMATOLOGY METHOD 07/05/2025 4:35 AM EDT [facility] Differential Type Automated LAB HEMATOLOGY METHOD 07/05/2025 4:35 AM EDT [facility] Neutrophils % 64 % LAB HEMATOLOGY METHOD 07/05/2025 4:35 AM EDT [facility] Lymphocytes % 18 % LAB HEMATOLOGY METHOD 07/05/2025 4:35 AM EDT [facility] Monocytes % 15 % LAB HEMATOLOGY METHOD 07/05/2025 4:35 AM EDT [facility]ALTHCARE LAB Eosinophils % 2 % LAB HEMATOLOGY METHOD 07/05/2025 4:35 AM EDT [facility]ALTH[facility] LAB Basophils % 1 % LAB HEMATOLOGY METHOD 07/05/2025 4:35 AM EDT [facility] Immature Granulocytes % 0 % LAB HEMATOLOGY METHOD 07/05/2025 4:35 AM EDT [facility] Neutrophils Absolute 1.84 1.60 - 6.10 10*3/uL LAB HEMATOLOGY METHOD 07/05/2025 4:35 AM EDT [facility] Lymphocytes Absolute 0.53(L) 1.20 - 3.90 10*3/uL LAB HEMATOLOGY METHOD 07/05/2025 4:35 AM EDT [facility] Monocytes Absolute 0.44 0.30 - 0.90 10*3/uL LAB HEMATOLOGY METHOD 07/05/2025 4:35 AM EDT [facility] Eosinophils Absolute 0.07 0.00 - 0.50 10*3/uL LAB HEMATOLOGY METHOD 07/05/2025 4:35 AM EDT [facility] Basophils Absolute 0.02 0.00 - [...] BLOOD ORDERABLES Final Result [facility] [address] [place] [address] * (ABNORMAL) POCT glucose meter (07/04/2025 8:46 [...] Comment 07/04/2025 8:48 PM EDT [facility] Production Grip ID Love Gore 8:48 PM EDT [facility] Device ID [id number] 07/04/2025 8:48 PM EDT [facility] Specimen Type POC Capillary 07/04/2025 8:48 PM EDT [facility] Blood Capillary blood specimen / Unknown 07/04/2025 8:46 PM EDT 07/04/2025 8:48 PM EDT Fabiana Cunningham MD LAB POINT OF CARE TE ST DOCKED DEVICE UNSOLICITED RESULTS Final Result Performing Organization Address City/State/[facility] Co de Phone Number [facility] [address] [place] [address] * (ABNORMAL) POCT glucose meter (07/04/2025 4:55 PM EDT) [facility] POCT Glucose 219(H) 74 - 99 mg/dL [...] Comment 07/04/2025 6:43 PM EDT [facility]ALTH[facility]ARE [facility] Production Grip ID Fredy Field 6:43 PM EDT [facility] Device ID [id number] 07/04/2025 6:43 PM EDT [facility] Specimen Type POC Capillary 07/04/2025 6:43 PM EDT [facility] Blood Capillary blood specimen / Unknown 07/04/2025 4:55 PM EDT 07/04/2025 6:43 PM EDT us Fabiana Cunningham MD LAB POINT OF CARE TE ST DOCKED DEVICE UNSOLICITED RESULTS Final Result Performing Organization Address City/[facility] Co de Phone Number [facility] [address] [place] [address] * POCT glucose meter (07/04/2025 2:04 PM [...] Comment 07/04/2025 2:05 PM EDT [facility] Production Grip ID Fredy Field 2:05 PM EDT [facility] Device ID [id number] 07/04/2025 2:05 PM EDT [facility] Specimen Type POC Capillary 07/04/2025 2:05 PM EDT [facility] Blood Capillary blood specimen / Unknown 07/04/2025 2:04 PM EDT 07/04/2025 2:05 PM EDT us Fabiana Cunningham MD LAB POINT OF CARE TE ST DOCKED DEVICE UNSOLICITED RESULTS Final Result Performing Organization Address City/[facility] Co de Phone Number [facility] [address] [place] [address] * XR Chest 1 View (07/04/2025 11:43 [...] presents today for thoracentesis and paracentesis. TECHNIQUE: Director Of Grants: Maria Dolores Ontiveros APRN Secondary Production Grip: None. Nurse: Mark Technologist: Dayne Phillips Dose: [...] presents today for thoracentesis and paracentesis. TECHNIQUE: Director Of Grants: Maria Dolores Ontiveros APRN Secondary Production Grip: None. Nurse: Mark Technologist: Dayne Phillips Dose: [...] presents today for thoracentesis and paracentesis. TECHNIQUE: Director Of Grants: Maria Dolores Ontiveros APRN Secondary Production Grip: None. Nurse: Mark Technologist: Dayne Phillips Dose: [...] presents today for thoracentesis and paracentesis. TECHNIQUE: Director Of Grants: Maria Dolores Ontiveros APRN Secondary Production Grip: None. Nurse: Mark Technologist: Dayne Phillips Dose: [...] 07/04/2025 3:50 PM us Marianna Gordon APRN [facility] – [place] US PROCEDURES Final Resu lt * Body fluid, cytospin, pathologist interpretation (07/04/2025 10:48 AM EDT) Specimen Type Body Fluid LAB HEMATOLOGY METHOD 07/05/2025 1:43 PM EDT [facility] Specimen Source, Body Fluid Pleural, Right LAB HEMATOLOGY METHOD 07/05/2025 1:43 PM EDT [facility] Clinical Diagnosis, Body Fluid Pleural effusion LAB HEMATOLOGY METHOD 07/05/2025 1:43 PM EDT [facility] Interpretation , Body Fluid 07/05/2025 1:43 PM EDT [facility] Pathologist Signature, Body Fluid 07/05/2025 1:43 PM EDT [facility] Comment:Reviewed by: Onur Roque MD LAB CP ASR DISCLAIMER No 07/05/2025 1:43 PM EDT [facility] Specimen Source, Other Free Text No evidence of malignancy, Chronic inflammatory cells Lymphocytosis, Moderate blood 07/05/2025 1:43 PM EDT [facility] Body Fluid Structure of right pleural cavity / Unknown Non-blood Collection / Unknown 07/04/2025 10:48 AM EDT 07/04/2025 12:11 PM EDT us Fabiana Cunningham MD LAB BODY FLUIDS AND STOOLS VINCENT CATES Final Result [facility] [address] [place] [address] * Lactate Dehydrogenase, Pleural Fluid - Right (07/04/2025 10:48 AM EDT) LDH, Fluid 69 U/L 07/04/2025 4:42 PM EDT [facility] Pleural Fluid Structure of right pleural cavity / Unknown Non-blood Collection / Unknown 07/04/2025 10:48 AM EDT 07/04/2025 12:11 PM EDT Narrative [facility] - 07/04/2025 4:42 PM EDT No [...] the following criteria are present: (1) pleural oisgw-ym-jgiwb protein ratio of >0.5, (2) pleural qkcvg-zb-gimks LDH ratio of >0.6, or (3) a pleural fluid LDH activity that is >2/3 the upper limit of a normal serum LDH activity. Light's criteria may misclassify ~25% of transudates as exudates in heart failure. These can be identified by calculating a bxclh-rz-izlsfjx albumin gradient (>1.2 g/dL) and/or a tmird-dd-yupvg protein gradient (>3.1 g/dL). us Fabiana Cunningham MD LAB BODY FLUIDS AND STOOLS VINCENT CATES Final Result [facility] [address] [place] [address] * Total Protein, Pleural Fluid - Pleural Right (07/04/2025 10:48 AM EDT) Total Protein, Fluid 2.1 g/dL 07/04/2025 4:42 PM EDT [facility] Pleural Fluid Structure of right pleural cavity / Unknown Non-blood Collection / Unknown 07/04/2025 10:48 AM EDT 07/04/2025 12:11 PM EDT Narrative [facility] - 07/04/2025 4:42 PM EDT This test was developed and its performance characteristics determined by [facility]. The U.S. Food and Drug Administration has not approved or cleared this test. However, FDA clearance or approval is not currently required for clinical use. The results are not intended to be used as the sole means for clinical diagnosis or patient management decisions. Fabiana Cunningham MD LAB BODY FLUIDS AND STOOLS VINCENT CATES Final Result Performing Organization Address [facility] Co de Phone Number [facility] [address] [place] [address] * Body Fluid Culture and Gram Stain - Pleural Right (07/04/2025 10:48 AM EDT) Culture No growth at day 4 2024 7:42 AM EDT [facility] Gram Stain Result Few Polymorphonuclear leukocytes 07/07/2025 7:42 AM EDT [facility] Gram Stain Result No organisms seen 07/07/2025 7:42 AM EDT [facility] Pleural Fluid Specimen from pleura obtained by thoracentesis / Unknown Non-blood Collection / Unknown 07/04/2025 10:48 AM EDT 07/04/2025 12:41 PM EDT Fabiana Cunningham MD LAB MICROBIOLOGY - GENERAL ORDLoyd CATES Final Result Performing Organization Address [facility] Co de Phone Number [facility] [address] [place] [address] * (ABNORMAL) Body Fluid Cell Count w/ Diff - Pleural Right (07/04/2025 10:48 AM EDT) Color, Body fluid Peach LAB HEMATOLOGY METHOD 07/04/2025 5:03 PM EDT [facility] Appearance, Body fluid Cloudy(A) LAB HEMATOLOGY METHOD 07/04/2025 5:03 PM EDT [facility] Volume, Body fluid 90.0 cc LAB HEMATOLOGY METHOD 07/04/2025 5:03 PM EDT [facility] Fluid Container Specimen received in miscellaneous container LAB HEMATOLOGY METHOD 07/04/2025 5:03 PM EDT [facility] Red Blood Cell Count, Body fluid 16,000 uL LAB HEMATOLOGY METHOD 07/04/2025 5:03 PM EDT [facility] Total Nucleated Cell Count, Body fluid 380 uL LAB HEMATOLOGY METHOD 07/04/2025 5:03 PM EDT [facility] Neutrophils %, Body fluid 7 % LAB HEMATOLOGY METHOD 07/04/2025 5:03 PM EDT [facility] Lymphocytes %, Body fluid 63 % LAB HEMATOLOGY METHOD 07/04/2025 5:03 PM EDT [facility] Monocytes/Macr ophages %, Body fluid 29 % LAB HEMATOLOGY METHOD 07/04/2025 5:03 PM EDT [facility] Eosinophils %, Body fluid 0 % LAB HEMATOLOGY METHOD 07/04/2025 5:03 PM EDT [facility] Lining/Mesothe lial Cells %, Body fluid 1 % LAB HEMATOLOGY METHOD 07/04/2025 5:03 PM EDT [facility] Neutrophils Absolute (PMN), Body fluid 27 uL LAB HEMATOLOGY METHOD 07/04/2025 5:03 PM EDT [facility] Lymphocytes Absolute, Body fluid 239 uL LAB HEMATOLOGY METHOD 07/04/2025 5:03 PM EDT [facility] Monocytes/Macr ophages Absolute, Body fluid 110 uL LAB HEMATOLOGY METHOD 07/04/2025 5:03 PM EDT [facility] Eosinophils Absolute, Body fluid 0 uL LAB HEMATOLOGY METHOD 07/04/2025 5:03 PM EDT [facility] Basophils Absolute, Body fluid 0 uL LAB HEMATOLOGY METHOD 07/04/2025 5:03 PM EDT [facility] Lining/Mesothe lial Cells Absolute, Body fluid 4 uL LAB HEMATOLOGY METHOD 07/04/2025 5:03 PM EDT [facility] Comment, Body fluid None LAB HEMATOLOGY METHOD 07/04/2025 5:03 PM EDT [facility] Comment:This is an appended report. These results have been appended to a previously preliminary verified report. Basophils %, Body fluid 0 % LAB HEMATOLOGY METHOD 07/04/2025 5:03 PM EDT [facility] Body Fluid Structure of right pleural cavity / Unknown Non-blood Collection / Unknown 07/04/2025 10:48 AM EDT 07/04/2025 12:11 PM EDT us Fabiana Cunningham MD LAB BODY FLUIDS AND STOOLS ORDERABLES NO SPECIMEN TYPE/SOURCE Final Result [facility] [address] [place] [address] * Body fluid, cytospin, pathologist interpretation (07/04/2025 10:08 AM EDT) Specimen Type Body Fluid LAB HEMATOLOGY METHOD 07/05/2025 3:43 PM EDT [facility] Specimen Source, Body Fluid Peritoneal Fluid LAB HEMATOLOGY METHOD 07/05/2025 3:43 PM EDT [facility] Clinical Diagnosis, Body Fluid Ascites LAB HEMATOLOGY METHOD 07/05/2025 3:43 PM EDT [facility] Interpretation , Body Fluid No evidence of malignancy Predominantly chronic inflammatory cells Moderate blood 07/05/2025 3:43 PM EDT [facility] Pathologist Signature, Body Fluid 07/05/2025 3:43 PM EDT [facility] Comment:Reviewed by: Kadie dobbs MD LAB CP ASR DISCLAIMER No 07/05/2025 3:43 PM EDT [facility] Body Fluid Peritoneal fluid / Unknown Non-blood Collection / Unknown 07/04/2025 10:08 AM EDT 07/04/2025 12:08 PM EDT us Fabiana Cunningham MD LAB BODY FLUIDS AND STOOLS ORDE RABLES Final Result [facility] [address] [place] [address] * Protein - Ascites (07/04/2025 10:08 AM EDT) Total Protein, Fluid 2.1 g/dL 07/04/2025 3:52 PM EDT [facility] Ascites Peritoneal cavity structure / Unknown 07/04/2025 10:08 AM EDT 07/04/2025 12:10 PM EDT Narrative [facility] - 07/04/2025 3:52 PM EDT This test was developed and its performance characteristics determined by [facility]. The U.S. Food and Drug Administration has not approved or cleared this test. However, FDA clearance or approval is not currently required for clinical use. The results are not intended to be used as the sole means for clinical diagnosis or patient management decisions. Fabiana Cunningham MD LAB BODY FLUIDS AND STOOLS VINCENT CATES Final Result Performing Organization Address [facility] Co de Phone Number [facility] [address] [place] [address] * Glucose - Ascites (07/04/2025 10:08 AM EDT) Glucose, Fluid 112 mg/dL 07/04/2025 3:52 PM EDT [facility] Ascites Peritoneal cavity structure / Unknown 07/04/2025 10:08 AM EDT 07/04/2025 12:10 PM EDT [facility] - 07/04/2025 3:52 PM EDT Peritoneal/Ascites [...] VINCENT CATES Final Result Performing Organization Address [facility] Co de Phone Number [facility] [address] [place] [address] * LDH - Ascites (07/04/2025 10:08 AM EDT) LDH, Fluid 63 U/L 07/04/2025 3:52 PM EDT [facility] Ascites Peritoneal cavity structure / Unknown 07/04/2025 10:08 AM EDT 07/04/2025 12:10 PM EDT [facility] - 07/04/2025 3:52 PM EDT No [...] VINCENT CATES Final Result Performing Organization Address [facility]/ZIP Co de Phone Number [facility] [address] [place] [address] * Body Fluid Culture and Gram Stain (07/04/2025 10:08 AM EDT) Culture No growth at day 4 2024 7:42 AM EDT [facility] Gram Stain Result Few Polymorphonuclear leukocytes 07/07/2025 7:42 AM EDT [facility] Gram Stain Result No organisms seen 07/07/2025 7:42 AM EDT [facility] Peritoneal Fluid Peritoneal cavity structure / Unknown Non-blood Collection / Unknown 07/04/2025 10:08 AM EDT 07/04/2025 12:42 PM EDT Fabiana Cunningham MD LAB MICROBIOLOGY - GENERAL ORDLoyd ARGUETABRITTANY Final Result Performing Organization Address [facility] Co de Phone Number [facility] [address] [place] [address] * (ABNORMAL) Body Fluid Cell Count With Diff - Ascites (07/04/2025 10:08 AM EDT) Color, Body fluid Peach LAB HEMATOLOGY METHOD 07/04/2025 3:41 PM EDT [facility] Appearance, Body fluid Cloudy(A) LAB HEMATOLOGY METHOD 07/04/2025 3:41 PM EDT [facility] Volume, Body fluid 20.0 cc LAB HEMATOLOGY METHOD 07/04/2025 3:41 PM EDT [facility] Fluid Container Specimen received in miscellaneous container LAB HEMATOLOGY METHOD 07/04/2025 3:41 PM EDT [facility] Red Blood Cell Count, Body fluid 11,000 uL LAB HEMATOLOGY METHOD 07/04/2025 3:41 PM EDT [facility] Total Nucleated Cell Count, Body fluid 296 uL LAB HEMATOLOGY METHOD 07/04/2025 3:41 PM EDT [facility] Neutrophils %, Body fluid 11 % LAB HEMATOLOGY METHOD 07/04/2025 3:41 PM EDT [facility] Lymphocytes %, Body fluid 56 % LAB HEMATOLOGY METHOD 07/04/2025 3:41 PM EDT [facility] Monocytes/Macr ophages %, Body fluid 30 % LAB HEMATOLOGY METHOD 07/04/2025 3:41 PM EDT [facility] Eosinophils %, Body fluid 1 % LAB HEMATOLOGY METHOD 07/04/2025 3:41 PM EDT [facility] Lining/Mesothe lial Cells %, Body fluid 2 % LAB HEMATOLOGY METHOD 07/04/2025 3:41 PM EDT [facility] Neutrophils Absolute (PMN), Body fluid 33 uL LAB HEMATOLOGY METHOD 07/04/2025 3:41 PM EDT [facility] Lymphocytes Absolute, Body fluid 166 uL LAB HEMATOLOGY METHOD 07/04/2025 3:41 PM EDT [facility] Monocytes/Macr ophages Absolute, Body fluid 89 uL LAB HEMATOLOGY METHOD 07/04/2025 3:41 PM EDT [facility] Eosinophils Absolute, Body fluid 3 uL LAB HEMATOLOGY METHOD 07/04/2025 3:41 PM EDT [facility] Basophils Absolute, Body fluid 0 uL LAB HEMATOLOGY METHOD 07/04/2025 3:41 PM EDT [facility] Lining/Mesothe lial Cells Absolute, Body fluid 6 uL LAB HEMATOLOGY METHOD 07/04/2025 3:41 PM EDT [facility] Basophils %, Body fluid 0 % LAB HEMATOLOGY METHOD 07/04/2025 3:41 PM EDT [facility] Body Fluid Peritoneal fluid / Unknown Non-blood Collection / Unknown 07/04/2025 10:08 AM EDT 07/04/2025 12:08 PM EDT Fabiana Cunningham MD LAB BODY FLUIDS AND STOOLS ORDERABLES NO SPECIMEN TYPE/SOURCE Final Result [facility] [address] [place] [address] * (ABNORMAL) POCT glucose meter (07/04/2025 8:07 AM EDT) [facility] POCT Glucose 103(H) 74 - 99 mg/dL [...] Comment 07/04/2025 8:09 AM EDT [facility] Production Grip ID Fredy Field 8:09 AM EDT [facility] Device ID [id number] 07/04/2025 8:09 AM EDT [facility] Specimen Type POC Capillary 07/04/2025 8:09 AM EDT [facility] Blood Capillary blood specimen / Unknown 07/04/2025 8:07 AM EDT 07/04/2025 8:09 AM EDT Fabiana Cunningham MD LAB POINT OF CARE TE ST DOCKED DEVICE UNSOLICITED RESULTS Final Result Performing Organization Address City/[facility] Co de Phone Number [facility] [address] [place] [address] * (ABNORMAL) Protime-INR (07/04/2025 4:47 AM EDT) [facility] Prothrombin Time 24.0(H) 12.0 - 14.3 sec [...] INR 2.5 to 3.5 Prevention of recurrent [place] INR 2.5 to 3.5 us Fabiana Cunningham MD LAB BLOOD ORDERABLES Final Resu lt [facility] [address] [place] [id number] * (ABNORMAL) Comprehensive metabolic panel (07/04/2025 4:47 AM EDT) Glucose, Plasma 111(H) 74 - 99 mg/dL 07/04/2025 5:23 AM EDT [facility] BUN, Plasma 28(H) 8 - 23 mg/dL 07/04/2025 5:23 AM EDT [facility] Creatinine, Plasma 1.32(H) 0.60 - 1.10 mg/dL 07/04/2025 5:23 AM EDT [facility] BUN/Creatinine Ratio 21 07/04/2025 5:23 AM EDT [facility] Sodium, Plasma 138 136 - 145 mmol/L 07/04/2025 5:23 AM EDT [facility] Potassium, Plasma 4.1 3.6 - 4.9 mmol/L 07/04/2025 5:23 AM EDT [facility] Chloride, Plasma 112(H) 97 - 107 mmol/L 07/04/2025 5:23 AM EDT [facility] CO2, Plasma 16(L) 22 - 29 mmol/L 07/04/2025 5:23 AM EDT [facility] Anion Gap 10 6 - 16 mmol/L 07/04/2025 5:23 AM EDT [facility] Total Calcium, Plasma 8.7(L) 8.9 - 10.2 mg/dL 07/04/2025 5:23 AM EDT [facility] Total Protein 6.2(L) 6.3 - 7.9 g/dL 07/04/2025 5:23 AM EDT [facility] Albumin, Plasma 3.8 3.5 - 5.2 g/dL 07/04/2025 5:23 AM EDT [facility] AST, Plasma 31 10 - 35 U/L 07/04/2025 5:23 AM EDT [facility] ALT, Plasma 14 10 - 35 U/L 07/04/2025 5:23 AM EDT [facility] Alkaline Phosphatase, Plasma 139 46 - 142 U/L 07/04/2025 5:23 AM EDT [facility] Total Bilirubin, Plasma 3.1(H) 0.2 - 1.1 mg/dL 07/04/2025 5:23 AM EDT [facility] eGFRcr 45.7 mL/min/1.7 3m*2 07/04/2025 5:23 AM EDT [facility] Comment:Reported eGFRcr in m L/min/1.73m2 is based the CKD-EPI 2020 equation that does not use a race coefficient. Blood Venous blood specimen / Unknown Venipuncture / Unknown 07/04/2025 4:47 AM EDT 07/04/2025 4:55 AM EDT Chilo Morales MD LAB BLOOD ORDERABLES Final Result Performing Organization Address City/[facility] Co de Phone Number [facility] [address] [place] [address] * Phosphorus, Plasma (07/04/2025 4:47 AM EDT) Phosphorus, Plasma 3.4 2.5 - 4.5 mg/dL 07/04/2025 5:23 AM EDT [facility] Blood Venous blood specimen / Unknown Venipuncture / Unknown 07/04/2025 4:47 AM EDT 07/04/2025 4:55 AM EDT Chilo Morales MD LAB BLOOD ORDERABLES Final Result [facility] [address] [place] [address] * (ABNORMAL) Magnesium, Plasma (07/04/2025 4:47 AM EDT) Magnesium, Plasma 1.8(L) 1.9 - 2.4 mg/dL 07/04/2025 5:23 AM EDT [facility] Blood Venous blood specimen / Unknown Venipuncture / Unknown 07/04/2025 4:47 AM EDT 07/04/2025 4:55 AM EDT us Chilo Morales MD LAB BLOOD ORDERABLES Final Result [facility] [address] [place] [address] * (ABNORMAL) CBC and Differential (07/04/2025 4:47 AM EDT) WBC Count 2.46(L) 3.70 - 10.30 10*3/uL LAB HEMATOLOGY METHOD 07/04/2025 4:58 AM EDT [facility] RBC Count 2.55(L) 3.90 - 5.20 10*6/uL LAB HEMATOLOGY METHOD 07/04/2025 4:58 AM EDT [facility] HGB 7.9(L) 11.2 - 15.7 g/dL LAB HEMATOLOGY METHOD 07/04/2025 4:58 AM EDT [facility] HCT 23.8(L) 34.0 - 45.0 % LAB HEMATOLOGY METHOD 07/04/2025 4:58 AM EDT [facility] Platelet Count 39(L) 155 - 369 10*3/uL LAB HEMATOLOGY METHOD 07/04/2025 4:58 AM EDT [facility] MCV 93 79 - 98 fL LAB HEMATOLOGY METHOD 07/04/2025 4:58 AM EDT [facility] MCH 31.0 26.0 - 32.0 pg LAB HEMATOLOGY METHOD 07/04/2025 4:58 AM EDT [facility] MCHC 33.2 30.7 - 35.5 g/dL LAB HEMATOLOGY METHOD 07/04/2025 4:58 AM EDT [facility] RDW 15.6(H) 11.5 - 14.5 % LAB HEMATOLOGY METHOD 07/04/2025 4:58 AM EDT [facility] MPV 11.5 8.8 - 12.5 fL LAB HEMATOLOGY METHOD 07/04/2025 4:58 AM EDT [facility] nRBC 0.0 <=0.0 per 100 WBCs LAB HEMATOLOGY METHOD 07/04/2025 4:58 AM EDT [facility] Differential Type Automated LAB HEMATOLOGY METHOD 07/04/2025 4:58 AM EDT [facility] Neutrophils % 58 % LAB HEMATOLOGY METHOD 07/04/2025 4:58 AM EDT [facility] Lymphocytes % 22 % LAB HEMATOLOGY METHOD 07/04/2025 4:58 AM EDT [facility] Monocytes % 18 % LAB HEMATOLOGY METHOD 07/04/2025 4:58 AM EDT [facility] Eosinophils % 2 % LAB HEMATOLOGY METHOD 07/04/2025 4:58 AM EDT [facility] Basophils % 0 % LAB HEMATOLOGY METHOD 07/04/2025 4:58 AM EDT [facility] Immature Granulocytes % 0 % LAB HEMATOLOGY METHOD 07/04/2025 4:58 AM EDT [facility] Neutrophils Absolute 1.40(L) 1.60 - 6.10 10*3/uL LAB HEMATOLOGY METHOD 07/04/2025 4:58 AM EDT [facility] Lymphocytes Absolute 0.55(L) 1.20 - 3.90 10*3/uL LAB HEMATOLOGY METHOD 07/04/2025 4:58 AM EDT [facility] Monocytes Absolute 0.43 0.30 - 0.90 10*3/uL LAB HEMATOLOGY METHOD 07/04/2025 4:58 AM EDT [facility] Eosinophils Absolute 0.06 0.00 - 0.50 10*3/uL LAB HEMATOLOGY METHOD 07/04/2025 4:58 AM EDT [facility] Basophils Absolute 0.01 0.00 - 0.10 10*3/uL LAB HEMATOLOGY METHOD 07/04/2025 4:58 AM EDT [facility] Immature Granulocytes Absolute 0.01 0.00 - 0.06 10*3/uL LAB HEMATOLOGY METHOD 07/04/2025 4:58 AM EDT [facility] Blood Venous blood specimen / Unknown Venipuncture / Unknown 07/04/2025 4:47 AM EDT 07/04/2025 4:55 AM EDT Narrative [facility] - 07/04/2025 4:58 AM EDT Therapeutic decision making should be based on absolute values, rather than percentages. us Chilo Morales MD LAB BLOOD ORDERABLES Final Result [facility] [address] [place] [address] * (ABNORMAL) POCT glucose meter (07/03/2025 8:36 [...] Comment 07/03/2025 8:37 PM EDT [facility] Production Grip ID Margarette Angel 07/03/2025 8:37 PM EDT [facility] Device ID [id number] 07/03/2025 8:37 PM EDT [facility] Specimen Type POC Capillary 07/03/2025 8:37 PM EDT [facility] Blood Capillary blood specimen / Unknown 07/03/2025 8:36 PM EDT 07/03/2025 8:37 PM EDT us Fabiana Cunningham MD LAB POINT OF CARE TE ST DOCKED DEVICE UNSOLICITED RESULTS Final Result Performing Organization Address City/State/[facility] Co de Phone Number [facility] [address] [place] [address] * XR Abdomen 1 View (07/03/2025 7:02 [...] Comment 07/03/2025 4:48 PM EDT [facility] Production Grip ID Reyes Elias 07/03/2025 4:48 PM EDT [facility] LAB Device ID [id number] 07/03/2025 4:48 PM EDT [facility] Specimen Type POC Capillary 07/03/2025 4:48 PM EDT [facility] Blood Capillary blood specimen / Unknown 07/03/2025 4:46 PM EDT 07/03/2025 4:48 PM EDT Fabiana Cunningham MD LAB POINT OF CARE TE ST DOCKED DEVICE UNSOLICITED RESULTS Final Result [facility] [address] [place] [address] * (ABNORMAL) POCT glucose meter (07/03/2025 11:50 AM EDT) [facility] POCT Glucose 221(H) 74 - 99 mg/dL [...] 07/03/2025 11:51 AM EDT [facility] Production Grip ID Reyes Elias 07/03/2025 11:51 AM EDT [facility] Device ID [id number] 07/03/2025 11:51 AM EDT [facility] Specimen Type POC Capillary 07/03/2025 11:51 AM EDT [facility] Blood Capillary blood specimen / Unknown 07/03/2025 11:50 AM EDT 07/03/2025 11:51 AM EDT Fabiana Cunningham MD LAB POINT OF CARE TE ST DOCKED DEVICE UNSOLICITED RESULTS Final Result [facility] [address] [place] [address] * (ABNORMAL) POCT glucose meter (07/03/2025 8:14 AM EDT) [facility] POCT Glucose 143(H) 74 - 99 mg/dL [...] 07/03/2025 8:16 AM EDT [facility] Production Grip ID Ryees Elias 07/03/2025 8:16 AM EDT [facility] Device ID [id number] 07/03/2025 8:16 AM EDT [facility] Specimen Type POC Capillary 07/03/2025 8:16 AM EDT [facility] Blood Capillary blood specimen / Unknown 07/03/2025 8:14 AM EDT 07/03/2025 8:16 AM EDT Fabiana Cunningham MD LAB POINT OF CARE TE ST DOCKED DEVICE UNSOLICITED RESULTS Final Result Performing Organization Address [facility] de Phone Number [facility] [address] [place] [address] * (ABNORMAL) Protime-INR (07/03/2025 4:25 AM EDT) Prothrombin Time 23.0(H) 12.0 - 14.3 sec 07/03/2025 4:42 AM EDT [facility]ALTH[facility] INR 2.0(H) 0.9 - 1.1 07/03/2025 4:42 AM EDT [facility] Blood Venous blood specimen [...] INR 2.5 to 3.5 Prevention of recurrent [place] INR 2.5 to 3.5 Fabiana Cunningham MD LAB BLOOD ORDERABLES Final Resu lt Performing Organization Address City/[facility]/ZIP Co de Phone Number [facility] [address] [place] [address] * (ABNORMAL) Comprehensive metabolic panel (07/03/2025 4:25 AM EDT) Glucose, Plasma 148(H) 74 - 99 mg/dL 07/03/2025 4:59 AM EDT [facility] BUN, Plasma 32(H) 8 - 23 mg/dL 07/03/2025 4:59 AM EDT [facility] Creatinine, Plasma 1.53(H) 0.60 - 1.10 mg/dL 07/03/2025 4:59 AM EDT [facility] BUN/Creatinine Ratio 21 07/03/2025 4:59 AM EDT [facility] Sodium, Plasma 141 136 - 145 mmol/L 07/03/2025 4:59 AM EDT [facility] Potassium, Plasma 4.3 3.6 - 4.9 mmol/L 07/03/2025 4:59 AM EDT [facility] Chloride, Plasma 111(H) 97 - 107 mmol/L 07/03/2025 4:59 AM T [facility] CO2, Plasma 19(L) 22 - 29 mmol/L 07/03/2025 4:59 AM EDT [facility] Anion Gap 11 6 - 16 mmol/L 07/03/2025 4:59 AM T [facility] Total Calcium, Plasma 8.7(L) 8.9 - 10.2 mg/dL 07/03/2025 4:59 AM T [facility] Total Protein 6.2(L) 6.3 - 7.9 g/dL 07/03/2025 4:59 AM T [facility] Albumin, Plasma 3.5 3.5 - 5.2 g/dL 07/03/2025 4:59 AM T [facility] AST, Plasma 36(H) 10 - 35 U/L 07/03/2025 4:59 AM T [facility] ALT, Plasma 19 10 - 35 U/L 07/03/2025 4:59 AM T [facility] Alkaline Phosphatase, Plasma 164(H) 46 - 142 U/L 07/03/2025 4:59 AM T [facility] Total Bilirubin, Plasma 2.9(H) 0.2 - 1.1 mg/dL 07/03/2025 4:59 AM T [facility] eGFRcr 38.3 mL/min/1.7 3m*2 07/03/2025 4:59 AM T [facility] Comment:Reported eGFRcr in m L/min/1.73m2 is based the CKD-EPI 2020 equation that does not use a race coefficient. Blood Venous blood specimen / Unknown Venipuncture / Unknown 07/03/2025 4:25 AM EDT 07/03/2025 4:29 AM EDT us Chilo Morales MD LAB BLOOD ORDERABLES Final Result Performing Organization Address City/[facility]/ZIP Co de Phone Number [facility] [address] [place] [address] * Phosphorus, Plasma (07/03/2025 4:25 AM EDT) Pathologist [facility] Phosphorus, Plasma 3.3 2.5 - 4.5 mg/dL 07/03/2025 4:59 AM EDT [facility] Blood Venous blood specimen / Unknown Venipuncture / Unknown 07/03/2025 4:25 AM EDT 07/03/2025 4:29 AM EDT Chilo Morales MD LAB BLOOD ORDERABLES Final Result Performing Organization Address [facility] de Phone Number [facility] [address] [place] [phone] * Magnesium, Plasma (07/03/2025 4:25 AM EDT) [facility] Magnesium, Plasma 2.0 1.9 - 2.4 mg/dL 07/03/2025 4:59 AM EDT [facility] Blood Venous blood specimen / Unknown Venipuncture / Unknown 07/03/2025 4:25 AM EDT 07/03/2025 4:29 AM EDT Chilo Morales MD LAB BLOOD ORDERABLES Final Result Performing Organization Address City/[facility] Co de Phone Number [facility] [address] [place] [address] * (ABNORMAL) CBC and Differential (07/03/2025 4:25 AM EDT) [facility] WBC Count 2.60(L) 3.70 - 10.30 10*3/uL LAB HEMATOLOGY METHOD 07/03/2025 4:32 AM EDT [facility] RBC Count 2.56(L) 3.90 - 5.20 10*6/uL LAB HEMATOLOGY METHOD 07/03/2025 4:32 AM EDT [facility] HGB 7.9(L) 11.2 - 15.7 g/dL LAB HEMATOLOGY METHOD 07/03/2025 4:32 AM EDT [facility] HCT 23.6(L) 34.0 - 45.0 % LAB HEMATOLOGY METHOD 07/03/2025 4:32 AM EDT [facility] Platelet Count 43(L) 155 - 369 10*3/uL LAB HEMATOLOGY METHOD 07/03/2025 4:32 AM EDT [facility] MCV 92 79 - 98 fL LAB HEMATOLOGY METHOD 07/03/2025 4:32 AM EDT [facility] MCH 30.9 26.0 - 32.0 pg LAB HEMATOLOGY METHOD 07/03/2025 4:32 AM EDT [facility] MCHC 33.5 30.7 - 35.5 g/dL LAB HEMATOLOGY METHOD 07/03/2025 4:32 AM EDT [facility] RDW 15.0(H) 11.5 - 14.5 % LAB HEMATOLOGY METHOD 07/03/2025 4:32 AM EDT [facility] MPV 11.8 8.8 - 12.5 fL LAB HEMATOLOGY METHOD 07/03/2025 4:32 AM EDT [facility] nRBC 0.0 <=0.0 per 100 WBCs LAB HEMATOLOGY METHOD 07/03/2025 4:32 AM EDT [facility] Differential Type Automated LAB HEMATOLOGY METHOD 07/03/2025 4:32 AM EDT [facility] Neutrophils % 62 % LAB HEMATOLOGY METHOD 07/03/2025 4:32 AM EDT [facility] Lymphocytes % 22 % LAB HEMATOLOGY METHOD 07/03/2025 4:32 AM EDT [facility] Monocytes % 14 % LAB HEMATOLOGY METHOD 07/03/2025 4:32 AM EDT [facility] Eosinophils % 2 % LAB HEMATOLOGY METHOD 07/03/2025 4:32 AM EDT [facility] Basophils % 0 % LAB HEMATOLOGY METHOD 07/03/2025 4:32 AM EDT [facility] Immature Granulocytes % 0 % LAB HEMATOLOGY METHOD 07/03/2025 4:32 AM EDT [facility] Neutrophils Absolute 1.58(L) 1.60 - 6.10 10*3/uL LAB HEMATOLOGY METHOD 07/03/2025 4:32 AM EDT [facility] Lymphocytes Absolute 0.58(L) 1.20 - 3.90 10*3/uL LAB HEMATOLOGY METHOD 07/03/2025 4:32 AM EDT [facility] Monocytes Absolute 0.36 0.30 - 0.90 10*3/uL LAB HEMATOLOGY METHOD 07/03/2025 4:32 AM EDT [facility] Eosinophils Absolute 0.06 0.00 - 0.50 10*3/uL LAB HEMATOLOGY METHOD 07/03/2025 4:32 AM EDT [facility] Basophils Absolute 0.01 0.00 - 0.10 10*3/uL LAB HEMATOLOGY METHOD 07/03/2025 4:32 AM EDT [facility] Immature Granulocytes Absolute 0.01 0.00 [...] BLOOD ORDERABLES Final Result Performing Organization Address City/State/[facility] Co de Phone Number [facility]ALTH[facility]ARE [facility] [address] [place] [address] * (ABNORMAL) POCT glucose meter (07/02/2025 8:19 [...] Comment 07/02/2025 8:21 PM EDT [facility] Production Grip ID [email or web address] head 07/02/2025 8:21 PM EDT [facility] Device ID [id number] 07/02/2025 8:21 PM EDT [facility] Specimen Type POC Capillary 07/02/2025 8:21 PM EDT [facility] Blood Capillary blood specimen / Unknown 07/02/2025 8:19 PM EDT 07/02/2025 8:21 PM EDT us Fabiana Cunningham MD LAB POINT OF CARE TE ST DOCKED DEVICE UNSOLICITED RESULTS Final Result Performing Organization Address City/[facility]/ZIP Co de Phone Number [facility] [address] [place] [address] * (ABNORMAL) POCT glucose meter (07/02/2025 4:53 [...] Comment 07/02/2025 4:55 PM EDT [facility] Production Grip ID Ashleigh Romero 4:55 PM EDT [facility] LAB Device ID [id number] 07/02/2025 4:55 PM EDT [facility] Specimen Type POC Capillary 07/02/2025 4:55 PM EDT [facility] Blood Capillary blood specimen / Unknown 07/02/2025 4:53 PM EDT 07/02/2025 4:55 PM EDT us Fabiana Cunningham MD LAB POINT OF CARE TE ST DOCKED DEVICE UNSOLICITED RESULTS Final Result Performing Organization Address City/[facility]/ZIP Co de Phone Number [facility] [address] [place] [address] * Sodium, urine, random (07/02/2025 12:42 PM EDT) Sodium, Urine <20 mmol/L 07/02/2025 1:41 PM EDT [facility] Urine Urine specimen obtained by clean catch procedure / Unknown Non-blood Collection / Unknown 07/02/2025 12:42 PM EDT 07/02/2025 1:01 PM EDT us Fabiana Cunningham MD LAB URINE ORDERABLES Final Resu lt Performing Organization Address City/[facility] Co de Phone Number [facility] [address] [place] [address] * Osmolality, urine (07/02/2025 12:42 PM EDT) Osmolality, Urine 467 50 - 1,200 mOsm/kg 07/02/2025 4:32 PM EDT [facility] Urine Urine specimen obtained by clean catch procedure / Unknown Non-blood Collection / Unknown 07/02/2025 12:42 PM EDT 07/02/2025 1:01 PM EDT us Fabiana Cunningham MD LAB URINE ORDERABLES Final Resu lt Performing Organization Address [facility] de Phone Number [facility] [address] [place] [address] * Creatinine, urine, random (07/02/2025 12:42 PM EDT) Creatinine, Urine 146 mg/dL 07/02/2025 1:41 PM EDT [facility] Urine Urine specimen obtained by clean catch procedure / Unknown Non-blood Collection / Unknown 07/02/2025 12:42 PM EDT 07/02/2025 1:01 PM EDT us Fabiana Cunningham MD LAB URINE ORDERABLES Final Resu lt Performing Organization Address [facility] de Phone Number [facility] [address] [place] [address] * Urea nitrogen, urine (07/02/2025 12:42 PM EDT) Urea Nitrogen, Urine 821 mg/dL 07/02/2025 4:26 PM EDT [facility] Urine Urine specimen obtained by clean catch procedure / Unknown Non-blood Collection / Unknown 07/02/2025 12:42 PM EDT 07/02/2025 1:01 PM EDT us Fabiana Cunningham MD LAB URINE ORDERABLES Final Resu lt Performing Organization Address [facility] Co de Phone Number [facility] [address] [place] [phone] * (ABNORMAL) POCT glucose meter (07/02/2025 12:04 PM EDT) [facility] POCT Glucose 189(H) 74 - 99 [...] Comment 07/02/2025 12:06 PM EDT [facility] Production Grip ID Jake Gallegos 07/02/2025 12:06 PM EDT [facility] Device ID [id number] 07/02/2025 12:06 PM EDT [facility] Specimen Type POC Capillary 07/02/2025 12:06 PM EDT [facility] Blood Capillary blood specimen / Unknown 07/02/2025 12:04 PM EDT 07/02/2025 12:06 PM EDT us Fabiana Cunningham MD LAB POINT OF CARE TE ST DOCKED DEVICE UNSOLICITED RESULTS Final Result [facility] [address] [place] [address] * (ABNORMAL) POCT glucose meter (07/02/2025 8:20 AM EDT) [facility] POCT Glucose 115(H) 74 - 99 mg/dL [...] 07/02/2025 8:22 AM EDT [facility] Production Grip ID Ashleigh Romero 8:22 AM EDT [facility] Device ID [id number] 07/02/2025 8:22 AM EDT [facility] Specimen Type POC Capillary 07/02/2025 8:22 AM EDT [facility] Blood Capillary blood specimen / Unknown 07/02/2025 8:20 AM EDT 07/02/2025 8:22 AM EDT Fabiana Cunningham MD LAB POINT OF CARE TE ST DOCKED DEVICE UNSOLICITED RESULTS Final Result [facility] [address] [place] [address] * (ABNORMAL) Comprehensive metabolic panel (07/02/2025 4:19 AM EDT) Glucose, Plasma 115(H) 74 - 99 mg/dL 07/02/2025 4:58 AM EDT [facility] BUN, Plasma 32(H) 8 - 23 mg/dL 07/02/2025 4:58 AM EDT [facility] Creatinine, Plasma 1.73(H) 0.60 - 1.10 mg/dL 07/02/2025 4:58 AM EDT [facility] BUN/Creatinine Ratio 18 07/02/2025 4:58 AM EDT [facility] Sodium, Plasma 134(L) 136 - 145 mmol/L 07/02/2025 4:58 AM EDT [facility] Potassium, Plasma 4.1 3.6 - 4.9 mmol/L 07/02/2025 4:58 AM EDT [facility] Chloride, Plasma 108(H) 97 - 107 mmol/L 07/02/2025 4:58 AM EDT [facility] CO2, Plasma 18(L) 22 - 29 mmol/L 07/02/2025 4:58 AM EDT [facility] Anion Gap 8 6 - 16 mmol/L 07/02/2025 4:58 AM EDT [facility] Total Calcium, Plasma 8.1(L) 8.9 - 10.2 mg/dL 07/02/2025 4:58 AM EDT [facility] Total Protein 5.8(L) 6.3 - 7.9 g/dL 07/02/2025 4:58 AM EDT [facility] Albumin, Plasma 2.8(L) 3.5 - 5.2 g/dL 07/02/2025 4:58 AM EDT [facility] AST, Plasma 40(H) 10 - 35 U/L 07/02/2025 4:58 AM EDT [facility] ALT, Plasma 21 10 - 35 U/L 07/02/2025 4:58 AM EDT [facility] Alkaline Phosphatase, Plasma 182(H) 46 - 142 U/L 07/02/2025 4:58 AM EDT [facility] Total Bilirubin, Plasma 2.8(H) 0.2 - 1.1 mg/dL 07/02/2025 4:58 AM EDT [facility] eGFRcr 33.1 mL/min/1.7 3m*2 07/02/2025 4:58 AM EDT [facility] Comment:Reported eGFRcr in m L/min/1.73m2 is based the CKD-EPI 2020 equation that does not use a race coefficient. Blood Venous blood specimen / Unknown Venipuncture / Unknown 07/02/2025 4:19 AM EDT 07/02/2025 4:33 AM EDT Chilo Morales MD LAB BLOOD ORDERABLES Final Result Performing Organization Address City/[facility] Co de Phone Number [facility] [address] [place] [address] * Phosphorus, Plasma (07/02/2025 4:19 AM EDT) Phosphorus, Plasma 3.1 2.5 - 4.5 mg/dL 07/02/2025 4:58 AM EDT [facility] Blood Venous blood specimen / Unknown Venipuncture / Unknown 07/02/2025 4:19 AM EDT 07/02/2025 4:33 AM EDT us Chilo Morales MD LAB BLOOD ORDERABLES Final Result [facility] [address] [place] [address] * (ABNORMAL) Magnesium, Plasma (07/02/2025 4:19 AM EDT) Magnesium, Plasma 1.8(L) 1.9 - 2.4 mg/dL 07/02/2025 4:58 AM EDT [facility] Blood Venous blood specimen / Unknown Venipuncture / Unknown 07/02/2025 4:19 AM EDT 07/02/2025 4:33 AM EDT us Chilo Morales MD LAB BLOOD ORDERABLES Final Result [facility] [address] [place] [id number] * (ABNORMAL) CBC and Differential (07/02/2025 4:19 AM EDT) WBC Count 3.07(L) 3.70 - 10.30 10*3/uL LAB HEMATOLOGY METHOD 07/02/2025 4:35 AM EDT [facility] RBC Count 2.67(L) 3.90 - 5.20 10*6/uL LAB HEMATOLOGY METHOD 07/02/2025 4:35 AM EDT [facility] HGB 8.3(L) 11.2 - 15.7 g/dL LAB HEMATOLOGY METHOD 07/02/2025 4:35 AM EDT [facility] HCT 24.5(L) 34.0 - 45.0 % LAB HEMATOLOGY METHOD 07/02/2025 4:35 AM EDT [facility] Platelet Count 51(L) 155 - 369 10*3/uL LAB HEMATOLOGY METHOD 07/02/2025 4:35 AM EDT [facility] MCV 92 79 - 98 fL LAB HEMATOLOGY METHOD 07/02/2025 4:35 AM EDT [facility] MCH 31.1 26.0 - 32.0 pg LAB HEMATOLOGY METHOD 07/02/2025 4:35 AM EDT [facility] MCHC 33.9 30.7 - 35.5 g/dL LAB HEMATOLOGY METHOD 07/02/2025 4:35 AM EDT [facility] RDW 15.3(H) 11.5 - 14.5 % LAB HEMATOLOGY METHOD 07/02/2025 4:35 AM EDT [facility] MPV 12.6(H) 8.8 - 12.5 fL LAB HEMATOLOGY METHOD 07/02/2025 4:35 AM EDT [facility] nRBC 0.0 <=0.0 per 100 WBCs LAB HEMATOLOGY METHOD 07/02/2025 4:35 AM EDT [facility] Differential Type Automated LAB HEMATOLOGY METHOD 07/02/2025 4:35 AM EDT [facility] Neutrophils % 55 % LAB HEMATOLOGY METHOD 07/02/2025 4:35 AM EDT [facility] Lymphocytes % 25 % LAB HEMATOLOGY METHOD 07/02/2025 4:35 AM EDT [facility] Monocytes % 17 % LAB HEMATOLOGY METHOD 07/02/2025 4:35 AM EDT [facility] Eosinophils % 3 % LAB HEMATOLOGY METHOD 07/02/2025 4:35 AM EDT [facility] Basophils % 0 % LAB HEMATOLOGY METHOD 07/02/2025 4:35 AM EDT [facility] Immature Granulocytes % 0 % LAB HEMATOLOGY METHOD 07/02/2025 4:35 AM EDT [facility] Neutrophils Absolute 1.66 1.60 - 6.10 10*3/uL LAB HEMATOLOGY METHOD 07/02/2025 4:35 AM EDT [facility] Lymphocytes Absolute 0.78(L) 1.20 - 3.90 10*3/uL LAB HEMATOLOGY METHOD 07/02/2025 4:35 AM EDT [facility] Monocytes Absolute 0.53 0.30 - 0.90 10*3/uL LAB HEMATOLOGY METHOD 07/02/2025 4:35 AM EDT [facility] Eosinophils Absolute 0.08 0.00 - 0.50 10*3/uL LAB HEMATOLOGY METHOD 07/02/2025 4:35 AM EDT [facility] Basophils Absolute 0.01 0.00 - 0.10 10*3/uL LAB HEMATOLOGY METHOD 07/02/2025 4:35 AM EDT [facility] Immature Granulocytes Absolute 0.01 0.00 - 0.06 10*3/uL LAB HEMATOLOGY METHOD 07/02/2025 4:35 AM EDT [facility] Blood Venous blood specimen / Unknown Venipuncture / Unknown 07/02/2025 4:19 AM EDT 07/02/2025 4:32 AM EDT [facility] - 07/02/2025 4:35 AM EDT Therapeutic decision making should be based on absolute values, rather than percentages. us Chilo Morales MD LAB BLOOD ORDERABLES Final Result [facility] [address] [place] [id number] * (ABNORMAL) POCT glucose meter (07/01/2025 8:01 PM EDT) [facility] POCT Glucose 122(H) 74 - 99 mg/dL [...] 07/01/2025 8:02 PM EDT [facility] Production Grip ID Sandra Collins 07/01/2025 8:02 PM EDT [facility] Device ID [id number] 07/01/2025 8:02 PM EDT [facility] Specimen Type POC Capillary 07/01/2025 8:02 PM EDT [facility] Blood Capillary blood specimen / Unknown 07/01/2025 8:01 PM EDT 07/01/2025 8:02 PM EDT Fabiana Cunningham MD LAB POINT OF CARE TE ST DOCKED DEVICE UNSOLICITED RESULTS Final Result [facility] [address] [place] [address] * (ABNORMAL) POCT glucose meter (07/01/2025 4:37 PM EDT) [facility] POCT Glucose 136(H) 74 - 99 mg/dL [...] 07/01/2025 4:38 PM EDT [facility] Production Grip ID Ashleigh Romero 4:38 PM EDT [facility] Device ID [id number] 07/01/2025 4:38 PM EDT [facility] Specimen Type POC Capillary 07/01/2025 4:38 PM EDT [facility] Blood Capillary blood specimen / Unknown 07/01/2025 4:37 PM EDT 07/01/2025 4:38 PM EDT Fabiana Cunningham MD LAB POINT OF CARE TE ST DOCKED DEVICE UNSOLICITED RESULTS Final Result Performing Organization Address City/[facility] Co de Phone Number [facility] [address] [place] [address] * (ABNORMAL) POCT glucose meter (07/01/2025 12:10 [...] 07/01/2025 12:12 PM EDT [facility] Production Grip ID Ashleigh Romero 12:12 PM EDT [facility] Device ID [id number] 07/01/2025 12:12 PM EDT [facility] Specimen Type POC Capillary 07/01/2025 12:12 PM EDT [facility] Blood Capillary blood specimen / Unknown 07/01/2025 12:10 PM EDT 07/01/2025 12:12 PM EDT us Fabiana Cunningham MD LAB POINT OF CARE TE ST DOCKED DEVICE UNSOLICITED RESULTS Final Result [facility] [address] [place] [address] * (ABNORMAL) Protime-INR (07/01/2025 9:08 AM EDT) [...] INR 2.5 to 3.5 Prevention of recurrent [place] INR 2.5 to 3.5 us Yeni Lebron APRN, DNP LAB BLOOD ORDERABLES Final Result [facility] [address] [place] [address] * (ABNORMAL) POCT glucose meter (07/01/2025 8:04 AM EDT) Pathologist [facility] POCT Glucose 126(H) 74 - 99 [...] Comment 07/01/2025 8:06 AM EDT [facility] Production Grip ID Ashleigh Romero 8:06 AM EDT [facility] Device ID [id number] 07/01/2025 8:06 AM EDT [facility]ALTH[facility] Specimen Type POC Capillary 07/01/2025 8:06 AM EDT [facility] Blood Capillary blood specimen / Unknown 07/01/2025 8:04 AM EDT 07/01/2025 8:06 AM EDT us Fabiana Cunningham MD LAB POINT OF CARE TE ST DOCKED DEVICE UNSOLICITED RESULTS Final Result [facility] [address] [place] [address] * (ABNORMAL) Comprehensive metabolic panel (07/01/2025 12:00 AM EDT) Glucose, Plasma 154(H) 74 - 99 mg/dL 07/01/2025 12:25 AM EDT [facility] BUN, Plasma 27(H) 8 - 23 mg/dL 07/01/2025 12:25 AM EDT [facility] Creatinine, Plasma 1.42(H) 0.60 - 1.10 mg/dL 07/01/2025 12:25 AM EDT [facility] BUN/Creatinine Ratio 19 07/01/2025 12:25 AM EDT [facility] Sodium, Plasma 135(L) 136 - 145 mmol/L 07/01/2025 12:25 AM EDT [facility] Potassium, Plasma 4.3 3.6 - 4.9 mmol/L 07/01/2025 12:25 AM EDT [facility] Chloride, Plasma 108(H) 97 - 107 mmol/L 07/01/2025 12:25 AM EDT [facility] CO2, Plasma 18(L) 22 - 29 mmol/L 07/01/2025 12:25 AM EDT [facility] Anion Gap 9 6 - 16 mmol/L 07/01/2025 12:25 AM EDT [facility] Total Calcium, Plasma 8.7(L) 8.9 - 10.2 mg/dL 07/01/2025 12:25 AM EDT [facility] Total Protein 6.0(L) 6.3 - 7.9 g/dL 07/01/2025 12:25 AM EDT [facility] Albumin, Plasma 2.9(L) 3.5 - 5.2 g/dL 07/01/2025 12:25 AM EDT [facility] AST, Plasma 46(H) 10 - 35 U/L 07/01/2025 12:25 AM EDT [facility] ALT, Plasma 21 10 - 35 U/L 07/01/2025 12:25 AM EDT [facility] Alkaline Phosphatase, Plasma 184(H) 46 [...] BLOOD ORDERABLES Final Result Performing Organization Address City/[facility] de Phone Number [facility] [address] [place] [address] * Phosphorus, Plasma (07/01/2025 12:00 AM EDT) Phosphorus, Plasma 2.7 2.5 - 4.5 mg/dL 07/01/2025 12:25 AM EDT [facility] Blood Venous blood specimen / Unknown Venipuncture / Unknown 07/01/2025 12:00 AM EDT 07/01/2025 12:03 AM EDT us Chilo Morales MD LAB BLOOD ORDERABLES Final Result Performing Organization Address City/[facility] Co de Phone Number [facility] [address] [place] [address] * Magnesium, Plasma (07/01/2025 12:00 AM EDT) Magnesium, Plasma 1.9 1.9 - 2.4 mg/dL 07/01/2025 12:25 AM EDT [facility] Blood Venous blood specimen / Unknown Venipuncture / Unknown 07/01/2025 12:00 AM EDT 07/01/2025 12:03 AM EDT us Chilo Morales MD LAB BLOOD ORDERABLES Final Result Performing Organization Address City/[facility]/ZIP Co de Phone Number [facility] [address] [place] [address] * (ABNORMAL) CBC and Differential (07/01/2025 12:00 AM EDT) WBC Count 3.15(L) 3.70 - 10.30 10*3/uL LAB HEMATOLOGY METHOD 07/01/2025 12:06 AM EDT [facility] RBC Count 2.81(L) 3.90 - 5.20 10*6/uL LAB HEMATOLOGY METHOD 07/01/2025 12:06 AM EDT [facility] HGB 8.6(L) 11.2 - 15.7 g/dL LAB HEMATOLOGY METHOD 07/01/2025 12:06 AM EDT [facility] HCT 25.5(L) 34.0 - 45.0 % LAB HEMATOLOGY METHOD 07/01/2025 12:06 AM EDT [facility] Platelet Count 47(L) 155 - 369 10*3/uL LAB HEMATOLOGY METHOD 07/01/2025 12:06 AM EDT [facility] MCV 91 79 - 98 fL LAB HEMATOLOGY METHOD 07/01/2025 12:06 AM EDT [facility] MCH 30.6 26.0 - 32.0 pg LAB HEMATOLOGY METHOD 07/01/2025 12:06 AM EDT [facility]ALTH[facility] MCHC 33.7 30.7 - 35.5 g/dL LAB HEMATOLOGY METHOD 07/01/2025 12:06 AM EDT [facility] RDW 15.0(H) 11.5 - 14.5 % LAB HEMATOLOGY METHOD 07/01/2025 12:06 AM EDT [facility] MPV 11.6 8.8 - 12.5 fL LAB HEMATOLOGY METHOD 07/01/2025 12:06 AM EDT [facility] nRBC 0.0 <=0.0 per [...] LAB HEMATOLOGY METHOD 07/01/2025 12:06 AM EDT [facility] Neutrophils Absolute 1.79 1.60 - 6.10 10*3/uL LAB HEMATOLOGY METHOD 07/01/2025 12:06 AM EDT [facility]ALTH[facility] Lymphocytes Absolute 0.75(L) 1.20 - 3.90 10*3/uL LAB HEMATOLOGY METHOD 07/01/2025 12:06 AM EDT [facility] Monocytes Absolute 0.50 0.30 - 0.90 10*3/uL LAB HEMATOLOGY METHOD 07/01/2025 12:06 AM EDT [facility] Eosinophils Absolute 0.09 0.00 - 0.50 10*3/uL LAB HEMATOLOGY METHOD 07/01/2025 12:06 AM EDT [facility] Basophils Absolute 0.01 0.00 - [...] ORDERABLES Final Result [facility] [address] [place] [address] * (ABNORMAL) POCT glucose meter (06/30/2025 8:52 [...] 06/30/2025 8:54 PM EDT [facility] Production Grip ID [place] 8:54 PM EDT [facility] Device ID [id number] 06/30/2025 8:54 PM EDT [facility] Specimen Type POC Capillary 06/30/2025 8:54 PM EDT [facility] Blood Capillary blood specimen / Unknown 06/30/2025 8:52 PM EDT 06/30/2025 8:54 PM EDT us Fabiana Cunningham MD LAB POINT OF CARE TE ST DOCKED DEVICE UNSOLICITED RESULTS Final Result Performing Organization Address City/State/[facility] de Phone Number [facility] [address] [place] [address] * (ABNORMAL) POCT glucose meter (06/30/2025 4:40 PM EDT) [facility] POCT Glucose 169(H) 74 - 99 mg/dL [...] Comment 06/30/2025 4:41 PM EDT [facility] Production Grip ID Nadia Salazar 4:41 PM EDT [facility] Device ID [id number] 06/30/2025 4:41 PM EDT [facility] Specimen Type POC Capillary 06/30/2025 4:41 PM EDT [facility] Blood Capillary blood specimen / Unknown 06/30/2025 4:40 PM EDT 06/30/2025 4:41 PM EDT us Fabiana Cunningham MD LAB POINT OF CARE TE ST DOCKED DEVICE UNSOLICITED RESULTS Final Result [facility] [address] [place] [address] * (ABNORMAL) POCT glucose meter (06/30/2025 11:48 AM EDT) [facility] POCT Glucose 237(H) 74 - 99 mg/dL [...] 06/30/2025 11:50 AM EDT [facility] Production Grip ID Nadia Salazar 11:50 AM EDT [facility] Device ID [id number] 06/30/2025 11:50 AM EDT [facility] Specimen Type POC Capillary 06/30/2025 11:50 AM EDT [facility] Blood Capillary blood specimen / Unknown 06/30/2025 11:48 AM EDT 06/30/2025 11:50 AM EDT us Fabiana Cunningham MD LAB POINT OF CARE TE ST DOCKED DEVICE UNSOLICITED RESULTS Final Result Performing Organization Address City/[facility]/ZIP Co de Phone Number [facility] [address] [place] [address] * (ABNORMAL) Ammonia, Plasma (06/30/2025 8:53 AM EDT) [facility] Ammonia 61(H) 11 - 51 umol/L 06/30/2025 9:26 AM EDT [facility] Blood Venous blood specimen / Unknown Venipuncture / Unknown 06/30/2025 8:53 AM EDT 06/30/2025 9:01 AM EDT us Fabiana Cunningham MD LAB BLOOD ORDERABLES Final Resu lt Performing Organization Address City/[facility]/ZIP Co de Phone Number [facility] [address] [place] [address] * (ABNORMAL) POCT glucose meter (06/30/2025 7:40 [...] Comment 06/30/2025 7:41 AM EDT [facility] Production Grip ID Nadia Salazar 7:41 AM EDT [facility] Device ID [id number] 06/30/2025 7:41 AM EDT [facility] Specimen Type POC Capillary 06/30/2025 7:41 AM EDT [facility] Blood Capillary blood specimen / Unknown 06/30/2025 7:40 AM EDT 06/30/2025 7:41 AM EDT us Fabiana Cunningham MD LAB POINT OF CARE TE ST DOCKED DEVICE UNSOLICITED RESULTS Final Result Performing Organization Address City/State/[facility] Co de Phone Number [facility] [address] [place] [address] * Peripheral blood smear, pathologist interpretation (06/30/2025 12:37 AM EDT) Clinical Diagnosis, Peripheral Smear Pancytopenia LAB HEMATOLOGY METHOD 07/01/2025 12:12 PM EDT [facility] Interpretation , Peripheral Smear Pancytopenia, not morphologically distinct 07/01/2025 12:12 PM EDT [facility] Pathologist Signature, Peripheral Smear 07/01/2025 12:12 PM EDT [facility] Comment:Reviewed by: Stacy King MD LAB CP ASR DISCLAIMER No 07/01/2025 12:12 PM EDT [facility] Blood Venous blood specimen / Unknown Venipuncture / Unknown 06/30/2025 12:37 AM EDT 06/30/2025 12:40 AM EDT us Fabiana Cunningham MD LAB PATHOLOGY ORDERABLES Final Result [facility] [address] [place] [address] * (ABNORMAL) Comprehensive metabolic panel (06/30/2025 12:37 AM EDT) Glucose, Plasma 162(H) 74 - 99 mg/dL 06/30/2025 1:00 AM EDT [facility] BUN, Plasma 28(H) 8 - 23 mg/dL 06/30/2025 1:00 AM EDT [facility] Creatinine, Plasma 1.60(H) 0.60 - 1.10 mg/dL 06/30/2025 1:00 AM EDT [facility] BUN/Creatinine Ratio 18 06/30/2025 1:00 AM EDT [facility] Sodium, Plasma 135(L) 136 - 145 mmol/L 06/30/2025 1:00 AM EDT [facility] Potassium, Plasma 3.5(L) 3.6 - 4.9 mmol/L 06/30/2025 1:00 AM EDT [facility] Chloride, Plasma 107 97 - 107 mmol/L 06/30/2025 1:00 AM EDT [facility] CO2, Plasma 19(L) 22 - 29 mmol/L 06/30/2025 1:00 AM EDT [facility] Anion Gap 9 6 - 16 mmol/L 06/30/2025 1:00 AM EDT [facility] Total Calcium, Plasma 8.5(L) 8.9 - 10.2 mg/dL 06/30/2025 1:00 AM EDT [facility] Total Protein 5.7(L) 6.3 - 7.9 g/dL 06/30/2025 1:00 AM EDT [facility] Albumin, Plasma 2.9(L) 3.5 - 5.2 g/dL 06/30/2025 1:00 AM EDT [facility] AST, Plasma 45(H) 10 - 35 U/L 06/30/2025 1:00 AM EDT [facility] ALT, Plasma 21 10 - 35 U/L 06/30/2025 1:00 AM EDT [facility] Alkaline Phosphatase, Plasma 185(H) 46 [...] BLOOD ORDERABLES Final Result Performing Organization Address [facility] Phone Number [facility] [address] [place] [address] * Phosphorus, Plasma (06/30/2025 12:37 AM EDT) Phosphorus, Plasma 3.0 2.5 - 4.5 mg/dL 06/30/2025 1:00 AM EDT [facility] Blood Venous blood specimen / Unknown Venipuncture / Unknown 06/30/2025 12:37 AM EDT 06/30/2025 12:40 AM EDT us Chilo Morales MD LAB BLOOD ORDERABLES Final Result Performing Organization Address [facility] de Phone Number [facility] [address] [place] [address] * (ABNORMAL) Magnesium, Plasma (06/30/2025 12:37 AM EDT) Magnesium, Plasma 1.5(L) 1.9 - 2.4 mg/dL 06/30/2025 1:00 AM EDT [facility] Blood Venous blood specimen / Unknown Venipuncture / Unknown 06/30/2025 12:37 AM EDT 06/30/2025 12:40 AM EDT us Chilo Morales MD LAB BLOOD ORDERABLES Final Result [facility] [address] [place] [address] * (ABNORMAL) Peripheral Blood Smear (06/30/2025 12:37 AM EDT) WBC Count 2.74(L) 3.70 - 10.30 10*3/uL LAB HEMATOLOGY METHOD 06/30/2025 1:28 AM EDT [facility] RBC Count 2.74(L) 3.90 - 5.20 10*6/uL LAB HEMATOLOGY METHOD 06/30/2025 1:28 AM EDT [facility] HGB 8.4(L) 11.2 - 15.7 g/dL LAB HEMATOLOGY METHOD 06/30/2025 1:28 AM EDT [facility] HCT 24.8(L) 34.0 - 45.0 % LAB HEMATOLOGY METHOD 06/30/2025 1:28 AM EDT [facility] Platelet Count 40(L) 155 - 369 10*3/uL LAB HEMATOLOGY METHOD 06/30/2025 1:28 AM EDT [facility] MCV 91 79 - 98 fL LAB HEMATOLOGY METHOD 06/30/2025 1:28 AM EDT [facility] MCH 30.7 26.0 - 32.0 pg LAB HEMATOLOGY METHOD 06/30/2025 1:28 AM EDT [facility] MCHC 33.9 30.7 - 35.5 g/dL LAB HEMATOLOGY METHOD 06/30/2025 1:28 AM EDT [facility] RDW 15.3(H) 11.5 - 14.5 % LAB HEMATOLOGY METHOD 06/30/2025 1:28 AM EDT [facility] MPV 10.3 8.8 - 12.5 fL LAB HEMATOLOGY METHOD 06/30/2025 1:28 AM EDT [facility] nRBC 0.0 <=0.0 per 100 WBCs LAB HEMATOLOGY METHOD 06/30/2025 1:28 AM EDT [facility] Differential Type Automated LAB HEMATOLOGY METHOD 06/30/2025 1:28 AM EDT [facility] Neutrophils % 54 % LAB [...] LAB HEMATOLOGY METHOD 06/30/2025 1:28 AM EDT [facility] Immature Granulocytes % 0 % LAB HEMATOLOGY METHOD 06/30/2025 1:28 AM EDT [facility] Neutrophils Absolute 1.45(L) 1.60 - 6.10 10*3/uL LAB HEMATOLOGY METHOD 06/30/2025 1:28 AM EDT [facility] Lymphocytes Absolute 0.73(L) 1.20 - 3.90 10*3/uL LAB HEMATOLOGY METHOD 06/30/2025 1:28 AM EDT [facility] Monocytes Absolute 0.45 0.30 - 0.90 10*3/uL LAB HEMATOLOGY METHOD 06/30/2025 1:28 AM EDT [facility] Eosinophils Absolute 0.09 0.00 - 0.50 10*3/uL LAB HEMATOLOGY METHOD 06/30/2025 1:28 AM EDT [facility] Basophils Absolute 0.01 0.00 - [...] LAB PATHOLOGY ORDERABLES Final Result [facility] [address] [place] [id number] * (ABNORMAL) POCT glucose meter (06/29/2025 8:07 [...] Comment 06/29/2025 8:09 PM EDT [facility] Production Grip ID Kacy Corrales 06/29/2025 8:09 PM EDT [facility] Device ID [id number] 06/29/2025 8:09 PM EDT [facility] Specimen Type POC Capillary 06/29/2025 8:09 PM EDT [facility] Blood Capillary blood specimen / Unknown 06/29/2025 8:07 PM EDT 06/29/2025 8:09 PM EDT us Fabiana Cunningham MD LAB POINT OF CARE TE ST DOCKED DEVICE UNSOLICITED RESULTS Final Result [facility] [address] [place] [address] * (ABNORMAL) POCT glucose meter (06/29/2025 4:40 PM EDT) [facility] POCT Glucose 158(H) 74 - 99 mg/dL [...] Comment 06/29/2025 4:41 PM EDT [facility] Production Grip ID Ashleigh Romero 4:41 PM EDT [facility] Device ID [id number] 06/29/2025 4:41 PM EDT [facility] Specimen Type POC Capillary 06/29/2025 4:41 PM EDT [facility] Blood Capillary blood specimen / Unknown 06/29/2025 4:40 PM EDT 06/29/2025 4:41 PM EDT us Fabiana Cunningham MD LAB POINT OF CARE TE ST DOCKED DEVICE UNSOLICITED RESULTS Final Result Performing Organization Address City/[facility]/ZIP Co de Phone Number [facility] [address] [place] [address] * (ABNORMAL) POCT glucose meter (06/29/2025 12:12 PM EDT) [facility] POCT Glucose 227(H) 74 - 99 mg/dL [...] Comment 06/29/2025 12:13 PM EDT [facility] Production Grip ID Ashleigh Romero 12:13 PM EDT [facility] Device ID [id number] 06/29/2025 12:13 PM EDT [facility] Specimen Type POC Capillary 06/29/2025 12:13 PM EDT [facility] Blood Capillary blood specimen / Unknown 06/29/2025 12:12 PM EDT 06/29/2025 12:13 PM EDT Fabiana Cunningham MD LAB POINT OF CARE TE ST DOCKED DEVICE UNSOLICITED RESULTS Final Result Performing Organization Address [facility] Co de Phone Number [facility] [address] [place] [address] * (ABNORMAL) POCT glucose meter (06/29/2025 8:05 AM EDT) [facility] POCT Glucose 144(H) 74 - 99 [...] 06/29/2025 8:07 AM EDT [facility] Production Grip ID Ashleigh Romero 8:07 AM EDT [facility] Device ID [id number] 06/29/2025 8:07 AM EDT [facility] Specimen Type POC Capillary 06/29/2025 8:07 AM EDT [facility] Blood Capillary blood specimen / Unknown 06/29/2025 8:05 AM EDT 06/29/2025 8:07 AM EDT Fabiana Cunningham MD LAB POINT OF CARE TE ST DOCKED DEVICE UNSOLICITED RESULTS Final Result [facility] [address] [place] [address] * (ABNORMAL) Comprehensive metabolic panel (06/29/2025 12:18 AM EDT) Glucose, Plasma 159(H) 74 - 99 mg/dL 06/29/2025 12:51 AM EDT [facility] BUN, Plasma 26(H) 8 - 23 mg/dL 06/29/2025 12:51 AM EDT [facility] Creatinine, Plasma 1.49(H) 0.60 - 1.10 mg/dL 06/29/2025 12:51 AM EDT [facility] BUN/Creatinine Ratio 17 06/29/2025 12:51 AM EDT [facility] Sodium, Plasma 137 136 - 145 mmol/L 06/29/2025 12:51 AM EDT [facility] Potassium, Plasma 3.4(L) 3.6 - 4.9 mmol/L 06/29/2025 12:51 AM EDT [facility] Chloride, Plasma 108(H) 97 - 107 mmol/L 06/29/2025 12:51 AM EDT [facility] CO2, Plasma 19(L) 22 - 29 mmol/L 06/29/2025 12:51 AM EDT [facility] Anion Gap 10 6 - 16 mmol/L 06/29/2025 12:51 AM EDT [facility] Total Calcium, Plasma 8.7(L) 8.9 - 10.2 mg/dL 06/29/2025 12:51 AM EDT [facility] Total Protein 5.9(L) 6.3 - [...] BLOOD ORDERABLES Final Result Performing Organization Address City/[facility] Co de Phone Number [facility] [address] [place] [address] * Phosphorus, Plasma (06/29/2025 12:18 AM EDT) Phosphorus, Plasma 3.2 2.5 - 4.5 mg/dL 06/29/2025 12:51 AM EDT [facility] Blood Venous blood specimen / Unknown Venipuncture / Unknown 06/29/2025 12:18 AM EDT 06/29/2025 12:24 AM EDT Chilo Morales MD LAB BLOOD ORDERABLES Final Result [facility] [address] [place] [address] * (ABNORMAL) Magnesium, Plasma (06/29/2025 12:18 AM EDT) Magnesium, Plasma 1.8(L) 1.9 - 2.4 mg/dL 06/29/2025 12:51 AM EDT [facility] Blood Venous blood specimen / Unknown Venipuncture / Unknown 06/29/2025 12:18 AM EDT 06/29/2025 12:24 AM EDT us Chilo Morales MD LAB BLOOD ORDERABLES Final Result [facility] [address] [place] [id number] * (ABNORMAL) CBC and Differential (06/29/2025 12:18 AM EDT) [facility] WBC Count 2.22(L) 3.70 - 10.30 10*3/uL LAB HEMATOLOGY METHOD 06/29/2025 12:49 AM EDT [facility] RBC Count 2.86(L) 3.90 - 5.20 10*6/uL LAB HEMATOLOGY METHOD 06/29/2025 12:49 AM EDT [facility] HGB 8.8(L) 11.2 - 15.7 g/dL LAB HEMATOLOGY METHOD 06/29/2025 12:49 AM EDT [facility] HCT 25.5(L) 34.0 - 45.0 % LAB HEMATOLOGY METHOD 06/29/2025 12:49 AM EDT [facility] Platelet Count 39(L) 155 - 369 10*3/uL LAB HEMATOLOGY METHOD 06/29/2025 12:49 AM EDT [facility] MCV 89 79 - 98 fL LAB HEMATOLOGY METHOD 06/29/2025 12:49 AM EDT [facility] MCH 30.8 26.0 - 32.0 pg LAB HEMATOLOGY METHOD 06/29/2025 12:49 AM EDT [facility] MCHC 34.5 30.7 - 35.5 g/dL LAB HEMATOLOGY METHOD 06/29/2025 12:49 AM EDT [facility] RDW 15.4(H) 11.5 - 14.5 % LAB HEMATOLOGY METHOD 06/29/2025 12:49 AM EDT [facility] MPV 10.6 8.8 - 12.5 fL LAB HEMATOLOGY METHOD 06/29/2025 12:49 AM EDT [facility] nRBC 0.0 <=0.0 per 100 WBCs LAB HEMATOLOGY METHOD 06/29/2025 12:49 AM EDT [facility] Differential Type Automated LAB HEMATOLOGY METHOD 06/29/2025 12:49 AM EDT [facility] Neutrophils % 46 % LAB HEMATOLOGY METHOD 06/29/2025 12:49 AM EDT [facility] Lymphocytes % 28 % LAB HEMATOLOGY METHOD 06/29/2025 12:49 AM EDT [facility] Monocytes % 22 % LAB HEMATOLOGY METHOD 06/29/2025 12:49 AM EDT [facility] Eosinophils % 3 % LAB HEMATOLOGY METHOD 06/29/2025 12:49 AM EDT [facility] Basophils % 1 % LAB HEMATOLOGY METHOD 06/29/2025 12:49 AM EDT [facility] Immature Granulocytes % 0 % LAB HEMATOLOGY METHOD 06/29/2025 12:49 AM EDT [facility] Neutrophils Absolute 1.04(L) 1.60 - 6.10 10*3/uL LAB HEMATOLOGY METHOD 06/29/2025 12:49 AM EDT [facility] Lymphocytes Absolute 0.62(L) 1.20 - 3.90 10*3/uL LAB HEMATOLOGY METHOD 06/29/2025 12:49 AM EDT [facility] Monocytes Absolute 0.49 0.30 - 0.90 10*3/uL LAB HEMATOLOGY METHOD 06/29/2025 12:49 AM EDT [facility] Eosinophils Absolute 0.06 0.00 - 0.50 10*3/uL LAB HEMATOLOGY METHOD 06/29/2025 12:49 AM EDT [facility] Basophils Absolute 0.01 0.00 - 0.10 10*3/uL LAB HEMATOLOGY METHOD 06/29/2025 12:49 AM EDT [facility] Immature Granulocytes Absolute 0.00 0.00 - 0.06 10*3/uL LAB HEMATOLOGY METHOD 06/29/2025 12:49 AM EDT [facility] Blood Venous blood specimen / Unknown Venipuncture / Unknown 06/29/2025 12:18 AM EDT 06/29/2025 12:23 AM EDT [facility] - 06/29/2025 12:49 AM EDT Therapeutic decision making should be based on absolute values, rather than percentages. Chilo Morales MD LAB BLOOD ORDERABLES Final Result Performing Organization Address City/[facility]/ZIP Co de Phone Number [facility] [address] [place] [address] * (ABNORMAL) Ammonia, Plasma (06/29/2025 12:18 AM EDT) Pathologist [facility] Ammonia 125(H) 11 - 51 umol/L 06/29/2025 12:39 AM EDT [facility] Blood Venous blood specimen / Unknown Venipuncture / Unknown 06/29/2025 12:18 AM EDT 06/29/2025 12:21 AM EDT Fabiana Cunningham MD LAB BLOOD ORDERABLES Final Resu lt Performing Organization Address [facility] de Phone Number [facility] [address] [place] [address] * (ABNORMAL) POCT glucose meter (06/28/2025 10:35 PM EDT) Pathologist [facility] POCT Glucose 161(H) 74 - 99 mg/dL [...] Comment 06/28/2025 10:41 PM EDT [facility] Production Grip ID [email or web address] [email or web address] 06/28/2025 10:41 PM EDT [facility] Device ID [id number] 06/28/2025 10:41 PM EDT [facility] Specimen Type POC Capillary 06/28/2025 10:41 PM EDT [facility] Blood Capillary blood specimen / Unknown 06/28/2025 10:35 PM EDT 06/28/2025 10:41 PM EDT us Fabiana Cunningham MD LAB POINT OF CARE TE ST DOCKED DEVICE UNSOLICITED RESULTS Final Result Performing Organization Address City/[facility] Co de Phone Number [facility] [address] [place] [address] * (ABNORMAL) POCT glucose meter (06/28/2025 4:41 PM EDT) Pathologist [facility] POCT Glucose 153(H) 74 - 99 mg/dL [...] Comment 06/28/2025 4:43 PM EDT [facility] Production Grip ID Ashleigh Romero 4:43 PM EDT [facility] Device ID [id number] 06/28/2025 4:43 PM EDT [facility] Specimen Type POC Capillary 06/28/2025 4:43 PM EDT [facility] Blood Capillary blood specimen / Unknown 06/28/2025 4:41 PM EDT 06/28/2025 4:43 PM EDT Chilo Morales MD LAB POINT OF CARE T EST DOCKED DEVICE UNSOLICITED RESULTS Final Result Performing Organization Address City/State/[facility] Co de Phone Number [facility] [address] [place] [address] * (ABNORMAL) POCT glucose meter (06/28/2025 12:08 PM EDT) Pathologist [facility] POCT Glucose 202(H) 74 - 99 mg/dL [...] 06/28/2025 12:10 PM EDT [facility] Production Grip ID Ashleigh Romero 12:10 PM EDT [facility] Device ID [id number] 06/28/2025 12:10 PM EDT [facility] Specimen Type POC Capillary 06/28/2025 12:10 PM EDT [facility] Blood Capillary blood specimen / Unknown 06/28/2025 12:08 PM EDT 06/28/2025 12:10 PM EDT us Chilo Morales MD LAB POINT OF CARE T EST DOCKED DEVICE UNSOLICITED RESULTS Final Result Performing Organization Address City/[facility] Co de Phone Number [facility] [address] [place] [address] * (ABNORMAL) POCT glucose meter (06/28/2025 8:19 [...] for testing. Comment 06/28/2025 8:21 AM EDT [facility] Production Grip ID Ashleigh Romero 8:21 AM EDT [facility]ALTH[facility] Device ID [id number] 06/28/2025 8:21 AM EDT [facility] Specimen Type POC Capillary 06/28/2025 8:21 AM EDT [facility] Blood Capillary blood specimen / Unknown 06/28/2025 8:19 AM EDT 06/28/2025 8:21 AM EDT us Chilo Morales MD LAB POINT OF CARE T EST DOCKED DEVICE UNSOLICITED RESULTS Final Result Performing Organization Address City/[facility] Co de Phone Number [facility] [address] [place] [address] * (ABNORMAL) Prealbumin (06/28/2025 3:50 AM EDT) Prealbumin, Plasma 5.0(L) 20.0 - 41.0 mg/dL 06/28/2025 1:42 PM EDT [facility] Blood Venous blood specimen / Unknown Venipuncture / Unknown 06/28/2025 3:50 AM EDT 06/28/2025 4:27 AM EDT Chilo Morales MD LAB BLOOD ORDERABLES Final Result [facility] [address] [place] [address] * (ABNORMAL) Comprehensive metabolic panel (06/28/2025 3:50 AM EDT) Pathologist [facility] Glucose, Plasma 149(H) 74 - 99 mg/dL 06/28/2025 4:57 AM EDT [facility] BUN, Plasma 28(H) 8 - 23 mg/dL 06/28/2025 4:57 AM EDT [facility] Creatinine, Plasma 1.66(H) 0.60 - 1.10 mg/dL 06/28/2025 4:57 AM EDT [facility] BUN/Creatinine Ratio 17 06/28/2025 4:57 AM EDT [facility] Sodium, Plasma 136 136 - 145 mmol/L 06/28/2025 4:57 AM EDT [facility] Potassium, Plasma 3.5(L) 3.6 - 4.9 mmol/L 06/28/2025 4:57 AM EDT [facility] Chloride, Plasma 107 97 - 107 mmol/L 06/28/2025 4:57 AM EDT [facility] CO2, Plasma 18(L) 22 - 29 mmol/L 06/28/2025 4:57 AM EDT [facility] Anion Gap 11 6 - 16 mmol/L 06/28/2025 4:57 AM EDT [facility] Total Calcium, Plasma 8.3(L) 8.9 - 10.2 mg/dL 06/28/2025 4:57 AM EDT [facility] Total Protein 5.8(L) 6.3 - 7.9 g/dL 06/28/2025 4:57 AM EDT [facility] Albumin, Plasma 3.1(L) 3.5 - 5.2 g/dL 06/28/2025 4:57 AM EDT [facility] AST, Plasma 52(H) 10 - [...] BLOOD ORDERABLES Final Result Performing Organization Address City/[facility] Co de Phone Number [facility] [address] [place] [address] * Phosphorus, Plasma (06/28/2025 3:50 AM EDT) Phosphorus, Plasma 3.5 2.5 - 4.5 mg/dL 06/28/2025 4:57 AM EDT [facility] Blood Venous blood specimen / Unknown Venipuncture / Unknown 06/28/2025 3:50 AM EDT 06/28/2025 4:27 AM EDT Chilo Morales MD LAB BLOOD ORDERABLES Final Result [facility] [address] [place] [address] * (ABNORMAL) Magnesium, Plasma (06/28/2025 3:50 AM EDT) Magnesium, Plasma 1.8(L) 1.9 - 2.4 mg/dL 06/28/2025 4:57 AM EDT [facility] Blood Venous blood specimen / Unknown Venipuncture / Unknown 06/28/2025 3:50 AM EDT 06/28/2025 4:27 AM EDT us Chilo Morales MD LAB BLOOD ORDERABLES Final Result [facility] [address] [place] [address] * (ABNORMAL) CBC and Differential (06/28/2025 3:50 AM EDT) WBC Count 1.69(L) 3.70 - 10.30 10*3/uL LAB HEMATOLOGY METHOD 06/28/2025 5:04 AM EDT [facility] RBC Count 2.72(L) 3.90 - 5.20 10*6/uL LAB HEMATOLOGY METHOD 06/28/2025 5:04 AM EDT [facility] HGB 8.3(L) 11.2 - 15.7 g/dL LAB HEMATOLOGY METHOD 06/28/2025 5:04 AM EDT [facility] HCT 24.6(L) 34.0 - 45.0 % LAB HEMATOLOGY METHOD 06/28/2025 5:04 AM EDT [facility] Platelet Count 40(L) 155 - 369 10*3/uL LAB HEMATOLOGY METHOD 06/28/2025 5:04 AM EDT [facility] MCV 90 79 - 98 fL LAB HEMATOLOGY METHOD 06/28/2025 5:04 AM EDT [facility] MCH 30.5 26.0 - 32.0 pg LAB HEMATOLOGY METHOD 06/28/2025 5:04 AM EDT [facility] MCHC 33.7 30.7 - 35.5 g/dL LAB HEMATOLOGY METHOD 06/28/2025 5:04 AM EDT [facility] RDW 15.5(H) 11.5 - 14.5 % LAB HEMATOLOGY METHOD 06/28/2025 5:04 AM EDT [facility] MPV 11.3 8.8 - 12.5 fL LAB HEMATOLOGY METHOD 06/28/2025 5:04 AM EDT [facility] nRBC 0.0 <=0.0 per 100 WBCs LAB HEMATOLOGY METHOD 06/28/2025 5:04 AM EDT [facility] Differential Type Automated LAB HEMATOLOGY METHOD 06/28/2025 5:04 AM EDT [facility] Neutrophils % 40 % LAB HEMATOLOGY METHOD 06/28/2025 5:04 AM EDT [facility] Lymphocytes % 31 % LAB HEMATOLOGY METHOD 06/28/2025 5:04 AM EDT [facility] Monocytes % 23 % LAB HEMATOLOGY METHOD 06/28/2025 5:04 AM EDT [facility] Eosinophils % 4 % LAB HEMATOLOGY METHOD 06/28/2025 5:04 AM EDT [facility] Basophils % 1 % LAB HEMATOLOGY METHOD 06/28/2025 5:04 AM EDT [facility] Immature Granulocytes % 1 % LAB HEMATOLOGY METHOD 06/28/2025 5:04 AM EDT [facility] Neutrophils Absolute 0.69(LL) 1.60 - 6.10 10*3/uL LAB HEMATOLOGY METHOD 06/28/2025 5:04 AM EDT [facility] Lymphocytes Absolute 0.53(L) 1.20 - 3.90 10*3/uL LAB HEMATOLOGY METHOD 06/28/2025 5:04 AM EDT [facility] Monocytes Absolute 0.39 0.30 - 0.90 10*3/uL LAB HEMATOLOGY METHOD 06/28/2025 5:04 AM EDT [facility] Eosinophils Absolute 0.06 0.00 - 0.50 10*3/uL LAB HEMATOLOGY METHOD 06/28/2025 5:04 AM EDT [facility] Basophils Absolute 0.01 0.00 - 0.10 10*3/uL LAB HEMATOLOGY METHOD 06/28/2025 5:04 AM EDT [facility] Immature Granulocytes Absolute 0.01 0.00 - 0.06 10*3/uL LAB HEMATOLOGY METHOD 06/28/2025 5:04 AM EDT [facility] Blood Venous blood specimen / Unknown Venipuncture / Unknown 06/28/2025 3:50 AM EDT 06/28/2025 4:26 AM EDT Narrative [facility] - 06/28/2025 5:04 AM EDT Therapeutic decision making should be based on absolute values, rather than percentages. us Chilo Morales MD LAB BLOOD ORDERABLES Final Result [facility] [address] [place] [address] * (ABNORMAL) POCT glucose meter (06/27/2025 8:04 PM EDT) [facility] POCT Glucose 232(H) 74 - 99 mg/dL [...] Comment 06/27/2025 8:05 PM EDT [facility] Production Grip ID Nav GillShahidTracie Saucedo 06/27/2025 8:05 PM EDT [facility] Device ID [id number] 06/27/2025 8:05 PM EDT [facility] Specimen Type POC Capillary 06/27/2025 8:05 PM EDT [facility] Blood Capillary blood specimen / Unknown 06/27/2025 8:04 PM EDT 06/27/2025 8:05 PM EDT Chilo Morales MD LAB POINT OF CARE T EST DOCKED DEVICE UNSOLICITED RESULTS Final Result Performing Organization Address City/State/[facility] Co de Phone Number [facility] [address] [place] [address] * (ABNORMAL) POCT glucose meter (06/27/2025 4:41 PM EDT) [facility] POCT Glucose 183(H) 74 - 99 mg/dL [...] Comment 06/27/2025 4:42 PM EDT [facility] Production Grip ID Ashleigh Romero 4:42 PM EDT [facility] Device ID [id number] 06/27/2025 4:42 PM EDT [facility] Specimen Type POC Capillary 06/27/2025 4:42 PM EDT [facility] Blood Capillary blood specimen / Unknown 06/27/2025 4:41 PM EDT 06/27/2025 4:42 PM EDT us Chilo Morales MD LAB POINT OF CARE T EST DOCKED DEVICE UNSOLICITED RESULTS Final Result Performing Organization Address [facility] Co de Phone Number [facility] [address] [place] [address] * (ABNORMAL) APTT (06/27/2025 2:37 PM EDT) Pathologist [facility] aPTT 42(H) 25 - 35 sec 06/27/2025 3:10 PM EDT [facility] Blood Venous blood specimen / Unknown Venipuncture / Unknown 06/27/2025 2:37 PM EDT 06/27/2025 2:44 PM EDT Chilo Morales MD LAB BLOOD ORDERABLES Final Result Performing Organization Address [facility] de Phone Number [facility] [address] [place] [address] * (ABNORMAL) CBC and differential (06/27/2025 2:37 PM EDT) WBC Count 1.51(L) 3.70 - 10.30 10*3/uL LAB HEMATOLOGY METHOD 06/27/2025 3:06 PM EDT [facility] RBC Count 2.99(L) 3.90 - 5.20 10*6/uL LAB HEMATOLOGY METHOD 06/27/2025 3:06 PM EDT [facility] HGB 9.4(L) 11.2 - 15.7 g/dL LAB HEMATOLOGY METHOD 06/27/2025 3:06 PM EDT [facility] HCT 27.7(L) 34.0 - 45.0 % LAB HEMATOLOGY METHOD 06/27/2025 3:06 PM EDT [facility] Platelet Count 35(L) 155 - 369 10*3/uL LAB HEMATOLOGY METHOD 06/27/2025 3:06 PM EDT [facility] MCV 93 79 - 98 fL LAB HEMATOLOGY METHOD 06/27/2025 3:06 PM EDT [facility] MCH 31.4 26.0 - 32.0 pg LAB HEMATOLOGY METHOD 06/27/2025 3:06 PM EDT [facility] MCHC 33.9 30.7 - 35.5 g/dL LAB HEMATOLOGY METHOD 06/27/2025 3:06 PM EDT [facility] RDW 15.8(H) 11.5 - 14.5 % LAB HEMATOLOGY METHOD 06/27/2025 3:06 PM EDT [facility] MPV 10.8 8.8 - 12.5 fL LAB HEMATOLOGY METHOD 06/27/2025 3:06 PM EDT [facility] nRBC 0.0 <=0.0 per 100 WBCs LAB HEMATOLOGY METHOD 06/27/2025 3:06 PM EDT [facility] Differential Type Automated LAB HEMATOLOGY METHOD 06/27/2025 3:06 PM EDT [facility] Neutrophils % 37 % LAB HEMATOLOGY METHOD 06/27/2025 3:06 PM EDT [facility] Lymphocytes % 40 % LAB HEMATOLOGY METHOD 06/27/2025 3:06 PM EDT [facility] Monocytes % 18 % LAB HEMATOLOGY METHOD 06/27/2025 3:06 PM EDT [facility] Eosinophils % 4 % LAB HEMATOLOGY METHOD 06/27/2025 3:06 PM EDT [facility] Basophils % 1 % LAB HEMATOLOGY METHOD 06/27/2025 3:06 PM EDT [facility] Immature Granulocytes % 0 % LAB HEMATOLOGY METHOD 06/27/2025 3:06 PM EDT [facility] Neutrophils Absolute 0.56(LL) 1.60 - 6.10 10*3/uL LAB HEMATOLOGY METHOD 06/27/2025 3:06 PM EDT [facility] Lymphocytes Absolute 0.61(L) 1.20 - 3.90 10*3/uL LAB HEMATOLOGY METHOD 06/27/2025 3:06 PM EDT [facility] Monocytes Absolute 0.27(L) 0.30 - 0.90 10*3/uL LAB HEMATOLOGY METHOD 06/27/2025 3:06 PM EDT [facility] Eosinophils Absolute 0.06 0.00 - 0.50 10*3/uL LAB HEMATOLOGY METHOD 06/27/2025 3:06 PM EDT [facility] Basophils Absolute 0.01 0.00 - 0.10 10*3/uL LAB HEMATOLOGY METHOD 06/27/2025 3:06 PM EDT [facility] Immature Granulocytes Absolute 0.00 [...] BLOOD ORDERABLES Final Result Performing Organization Address [facility] Co de Phone Number [facility] [address] [place] [address] * (ABNORMAL) Magnesium (06/27/2025 2:37 PM EDT) Magnesium, Plasma 1.5(L) 1.9 - 2.4 mg/dL 06/27/2025 3:10 PM EDT [facility] Blood Venous blood specimen / Unknown Venipuncture / Unknown 06/27/2025 2:37 PM EDT 06/27/2025 2:44 PM EDT us Chilo Morales MD LAB BLOOD ORDERABLES Final Result Performing Organization Address [facility] Co de Phone Number [facility] [address] [place] [address] * (ABNORMAL) Basic metabolic panel (06/27/2025 2:37 PM EDT) Glucose, Plasma 90 74 - 99 mg/dL 06/27/2025 3:10 PM EDT [facility] BUN, Plasma 29(H) 8 - 23 mg/dL 06/27/2025 3:10 PM EDT [facility] Creatinine, Plasma 1.83(H) 0.60 - 1.10 mg/dL 06/27/2025 3:10 PM EDT [facility] BUN/Creatinine Ratio 16 06/27/2025 3:10 PM EDT [facility]ALTH[facility] Sodium, Plasma 139 136 - 145 mmol/L 06/27/2025 3:10 PM EDT [facility] Potassium, Plasma 3.7 3.6 - 4.9 mmol/L 06/27/2025 3:10 PM EDT [facility] Chloride, Plasma 108(H) 97 - 107 mmol/L 06/27/2025 3:10 PM EDT [facility] CO2, Plasma 19(L) 22 - 29 mmol/L 06/27/2025 3:10 PM EDT [facility] Anion Gap 12 6 - 16 mmol/L 06/27/2025 3:10 PM EDT [facility] Total Calcium, Plasma 8.6(L) 8.9 - 10.2 mg/dL 06/27/2025 3:10 PM EDT [facility] eGFRcr 30.9 mL/min/1.7 3m*2 06/27/2025 3:10 PM EDT [facility] Comment:Reported eGFRcr in m L/min/1.73m2 is based the CKD-EPI 2020 equation that does not use a race coefficient. Blood Venous blood specimen / Unknown Venipuncture / Unknown 06/27/2025 2:37 PM EDT 06/27/2025 2:44 PM EDT us Chilo Morales MD LAB BLOOD ORDERABLES Final Result [facility] [address] [place], [place] [id number] * XR Chest 1 View (06/27/2025 10:49 [...] on 06/27/2025 11:46 AM us Marianna Gordon SECURITY INSTALLATION TECHNICIAN IMG XR PROCEDURES Final Resu lt * (ABNORMAL) POCT glucose meter (06/27/2025 10:27 AM EDT) [facility] POCT Glucose 105(H) 74 - 99 mg/dL [...] for testing. Comment 06/27/2025 10:28 AM EDT [facility] Production Grip ID Alvarez Mcclure 10:28 AM EDT [facility] Device ID [id number] 06/27/2025 10:28 AM EDT [facility] Specimen Type POC Capillary 06/27/2025 10:28 AM EDT [facility] Blood Capillary blood specimen / Unknown 06/27/2025 10:27 AM EDT 06/27/2025 10:28 AM EDT us Chilo Morales MD LAB POINT OF CARE T EST DOCKED DEVICE UNSOLICITED RESULTS Final Result [facility] [address] [place] [address] * US Guided Thoracentesis (06/27/2025 10:03 AM [...] CXR with moderate right pleural effusion. TECHNIQUE: Director Of Grants: Marianna Gordon APRN Secondary Production Grip: None. Nurse: [place] Technologist: Dayne Rad Dose: NA Medications: Continuous [...] CXR with moderate right pleural effusion. TECHNIQUE: Director Of Grants: Marianna Gordon APRN Secondary Production Grip: None. Nurse: [place] Technologist: Dayne Phillips Dose: [...] CXR with moderate right pleural effusion. TECHNIQUE: Director Of Grants: Marianna Gordon APRN Secondary Production Grip: None. Nurse: [place] Technologist: Dayne Phillips Dose: [...] CXR with moderate right pleural effusion. TECHNIQUE: Director Of Grants: Marianna Gordon APRN Secondary Production Grip: None. Nurse: [place] Technologist: Dayne Phillips Dose: [...] on 06/27/2025 2:59 PM us Shaniqua Mccurdy SECURITY INSTALLATION TECHNICIAN IMG US PROCEDURES Final Resu lt * Body fluid, cytospin, pathologist interpretation (06/27/2025 9:16 AM EDT) Specimen Type Body Fluid LAB HEMATOLOGY METHOD 06/28/2025 5:28 PM EDT [facility] Specimen Source, Body Fluid Peritoneal Fluid LAB HEMATOLOGY METHOD 06/28/2025 5:28 PM EDT [facility] Clinical Diagnosis, Body Fluid Ascites LAB HEMATOLOGY METHOD 06/28/2025 5:28 PM EDT [facility] Interpretation , Body Fluid No evidence of malignancy Chronic inflammatory cells Lymphocytosis Moderate blood A resident was involved in the service. I attest I examined the relevant preparations for the specimens and confirmed the diagnosis or interpretation. 06/28/2025 5:28 PM EDT [facility] Pathologist Signature, Body Fluid 06/28/2025 5:28 PM EDT [facility] Comment:Reviewed by: Kadie dobbs MD LAB CP ASR DISCLAIMER Yes 06/28/2025 5:28 PM EDT [facility] Body Fluid Peritoneal fluid / Unknown Non-blood Collection / Unknown 06/27/2025 9:16 AM EDT 06/27/2025 11:21 AM EDT Chilo Morales MD LAB BODY FLUIDS AND STOOLS ORDERABLES Final Result [facility] [address] [place] [address] * LDH - Ascites (06/27/2025 9:16 AM EDT) LDH, Fluid 37 U/L 06/27/2025 2:46 PM EDT [facility] Peritoneal Fluid Peritoneal cavity structure / Unknown Non-blood Collection / Unknown 06/27/2025 9:16 AM EDT 06/27/2025 11:21 AM EDT Narrative [facility] - 06/27/2025 2:46 PM EDT No [...] STOOLS ORDERABLES Final Result Performing Organization Address [facility] Co de Phone Number [facility] [address] [place] [address] * Albumin - Ascites (06/27/2025 9:16 AM EDT) Albumin, Peritoneal Fluid 0.5 g/dL 06/27/2025 2:46 PM EDT [facility] Peritoneal Fluid Peritoneal cavity structure / Unknown Non-blood Collection / Unknown 06/27/2025 9:16 AM EDT 06/27/2025 11:21 AM EDT Narrative [facility] - 06/27/2025 2:46 PM EDT REPORTING RESULTS Reference Values: No established reference interval. Results should be interpreted in comparison to the concentration in blood and in conjunction with the clinical context. This test was developed and its performance characteristics determined by [facility]. The U.S. Food and Drug Administration has not approved or cleared this test; however, FDA clearance or approval is not currently required for clinical use. The results are not intended to be used as the sole means for clinical diagnosis or patient management decisions. Chilo Morales MD LAB BODY FLUIDS AND STOOLS ORDERABLES Final Result Performing Organization Address [facility] Co de Phone Number [facility] [address] [place] [address] * Protein - Ascites (06/27/2025 9:16 AM EDT) Total Protein, Fluid 0.7 g/dL 06/27/2025 2:46 PM EDT [facility] Peritoneal Fluid Peritoneal cavity structure / Unknown Non-blood Collection / Unknown 06/27/2025 9:16 AM EDT 06/27/2025 11:21 AM EDT Narrative [facility] - 06/27/2025 2:46 PM EDT This test was developed and its performance characteristics determined by [facility]. The U.S. Food and Drug Administration has not approved or cleared this test. However, FDA clearance or approval is not currently required for clinical use. The results are not intended to be used as the sole means for clinical diagnosis or patient management decisions. Chilo Morales MD LAB BODY FLUIDS AND STOOLS ORDERABLES Final Result Performing Organization Address [facility] Co de Phone Number [facility] [address] [place] [address] * Glucose - Ascites (06/27/2025 9:16 AM EDT) Glucose, Fluid 130 mg/dL 06/27/2025 2:46 PM EDT [facility] Peritoneal Fluid Peritoneal cavity structure / Unknown Non-blood Collection / Unknown 06/27/2025 9:16 AM EDT 06/27/2025 11:21 AM EDT Narrative [facility] - 06/27/2025 2:46 PM EDT Peritoneal/Ascites [...] STOOLS ORDERABLES Final Result Performing Organization Address [facility] de Phone Number [facility] [address] [place] [address] * Body Fluid Culture and Gram Stain (06/27/2025 9:16 AM EDT) Culture No growth at day 4 2024 11:06 AM EDT [facility] Gram Stain Result No polymorphonuclear leukocytes seen 06/30/2025 11:06 AM EDT [facility] Gram Stain Result No organisms seen 06/30/2025 11:06 AM EDT [facility] Peritoneal Fluid Peritoneal cavity structure / Unknown Non-blood Collection / Unknown 06/27/2025 9:16 AM EDT 06/27/2025 11:50 AM EDT us Chilo Morales MD LAB MICROBIOLOGY - GENERAL ORDERABLES Final Result [facility] [address] [place] [address] * (ABNORMAL) Body Fluid Cell Count With Diff - Ascites (06/27/2025 9:16 AM EDT) Color, Body fluid Peach LAB HEMATOLOGY METHOD 06/27/2025 3:28 PM EDT [facility] Appearance, Body fluid Cloudy(A) LAB HEMATOLOGY METHOD 06/27/2025 3:28 PM EDT [facility] Volume, Body fluid 27.0 cc LAB HEMATOLOGY METHOD 06/27/2025 3:28 PM EDT [facility] Fluid Container Specimen received in miscellaneous container LAB HEMATOLOGY METHOD 06/27/2025 3:28 PM EDT [facility] Red Blood Cell Count, Body fluid 11,000 uL LAB HEMATOLOGY METHOD 06/27/2025 3:28 PM EDT [facility] Total Nucleated Cell Count, Body fluid 202 uL LAB HEMATOLOGY METHOD 06/27/2025 3:28 PM EDT [facility] Neutrophils %, Body fluid 0 % LAB HEMATOLOGY METHOD 06/27/2025 3:28 PM EDT [facility] Lymphocytes %, Body fluid 93 % LAB HEMATOLOGY METHOD 06/27/2025 3:28 PM EDT [facility] Monocytes/Macr ophages %, Body fluid 7 % LAB HEMATOLOGY METHOD 06/27/2025 3:28 PM EDT [facility] Eosinophils %, Body fluid 0 % LAB HEMATOLOGY METHOD 06/27/2025 3:28 PM EDT [facility] Lining/Mesothe lial Cells %, Body fluid 0 % LAB HEMATOLOGY METHOD 06/27/2025 3:28 PM EDT [facility] Neutrophils Absolute (PMN), Body fluid 0 uL LAB HEMATOLOGY METHOD 06/27/2025 3:28 PM EDT [facility] Lymphocytes Absolute, Body fluid 188 uL LAB HEMATOLOGY METHOD 06/27/2025 3:28 PM EDT [facility] Monocytes/Macr ophages Absolute, Body fluid 14 uL LAB HEMATOLOGY METHOD 06/27/2025 3:28 PM EDT [facility] Eosinophils Absolute, Body fluid 0 uL LAB HEMATOLOGY METHOD 06/27/2025 3:28 PM EDT [facility] Basophils Absolute, Body fluid 0 uL LAB HEMATOLOGY METHOD 06/27/2025 3:28 PM EDT [facility] Lining/Mesothe lial Cells Absolute, Body fluid 0 uL LAB HEMATOLOGY METHOD 06/27/2025 3:28 PM EDT [facility] Basophils %, Body fluid 0 % LAB HEMATOLOGY METHOD 06/27/2025 3:28 PM EDT [facility] Body Fluid Peritoneal fluid / Unknown Non-blood Collection / Unknown 06/27/2025 9:16 AM EDT 06/27/2025 11:21 AM EDT Chilo Morales MD LAB BODY FLUIDS AND STOOLS ORDERABLES NO SPECIMEN TYPE/SOURCE Final Result [facility] [address] [place] [address] * (ABNORMAL) POCT glucose meter (06/27/2025 5:53 [...] 06/27/2025 5:55 AM EDT [facility] Production Grip ID Torrie Alston 5:55 AM EDT [facility] Device ID [id number] 06/27/2025 5:55 AM EDT [facility] Specimen Type POC Capillary 06/27/2025 5:55 AM EDT [facility] Blood Capillary blood specimen / Unknown 06/27/2025 5:53 AM EDT 06/27/2025 5:55 AM EDT us Chilo Morales MD LAB POINT OF CARE T EST DOCKED DEVICE UNSOLICITED RESULTS Final Result Performing Organization Address [facility] de Phone Number [facility] [address] [place] [address] * (ABNORMAL) Cystatin C (06/27/2025 4:03 AM EDT) [facility] Cystatin C 2.97(H) 0.61 - 0.95 mg/L 06/27/2025 11:21 AM EDT [facility] Blood Venous blood specimen / Unknown Venipuncture / Unknown 06/27/2025 4:03 AM EDT 06/27/2025 4:40 AM EDT us Chilo Morales MD LAB BLOOD ORDERABLES Final Result Performing Organization Address [facility] de Phone Number [facility] [address] [place] [address] * Morphology (06/27/2025 4:03 AM EDT) [facility] RBC Morphology Slide Reviewed LAB HEMATOLOGY METHOD 06/27/2025 5:26 AM EDT [facility] Target Cells Present LAB HEMATOLOGY METHOD 06/27/2025 5:26 AM EDT [facility] Blood Venous blood specimen / Unknown Venipuncture / Unknown 06/27/2025 4:03 AM EDT 06/27/2025 4:40 AM EDT Chilo Morales MD LAB BLOOD ORDERABLES Final Result Performing Organization Address [facility] de Phone Number [facility] [address] [place] [address] * (ABNORMAL) Comprehensive metabolic panel (06/27/2025 4:03 AM EDT) [facility] Glucose, Plasma 139(H) 74 - 99 mg/dL 06/27/2025 5:03 AM EDT [facility] BUN, Plasma 31(H) 8 - 23 mg/dL 06/27/2025 5:03 AM EDT [facility] Creatinine, Plasma 1.95(H) 0.60 - 1.10 mg/dL 06/27/2025 5:03 AM [facility] BUN/Creatinine Ratio 16 06/27/2025 5:03 AM EDT [facility] Sodium, Plasma 134(L) 136 - 145 mmol/L 06/27/2025 5:03 AM [facility] Potassium, Plasma 3.8 3.6 - 4.9 mmol/L 06/27/2025 5:03 AM [facility] Chloride, Plasma 108(H) 97 - 107 mmol/L 06/27/2025 5:03 AM [facility] CO2, Plasma 18(L) 22 - 29 mmol/L 06/27/2025 5:03 AM [facility] Anion Gap 8 6 - 16 mmol/L 06/27/2025 5:03 AM [facility] Total Calcium, Plasma 8.5(L) 8.9 - 10.2 mg/dL 06/27/2025 5:03 AM [facility] Total Protein 5.8(L) 6.3 - 7.9 g/dL 06/27/2025 5:03 AM [facility] Albumin, Plasma 2.8(L) 3.5 - 5.2 g/dL 06/27/2025 5:03 AM [facility] AST, Plasma 60(H) 10 - 35 U/L 06/27/2025 5:03 AM [facility] ALT, Plasma 26 10 - 35 U/L 06/27/2025 5:03 AM [facility] Alkaline Phosphatase, Plasma 215(H) 46 - 142 U/L 06/27/2025 5:03 AM [facility] Total Bilirubin, Plasma 1.8(H) 0.2 - 1.1 mg/dL 06/27/2025 5:03 AM [facility] eGFRcr 28.6 mL/min/1.7 3m*2 06/27/2025 5:03 AM [facility] Comment:Reported eGFRcr in m L/min/1.73m2 is based the CKD-EPI 2020 equation that does not use a race coefficient. Blood Venous blood specimen / Unknown Venipuncture / Unknown 06/27/2025 4:03 AM EDT 06/27/2025 4:40 AM EDT us Chilo Morales MD LAB BLOOD ORDERABLES Final Result Performing Organization Address City/[facility]/ZIP Co de Phone Number [facility] [address] [place] [address] * Phosphorus, Plasma (06/27/2025 4:03 AM EDT) Phosphorus, Plasma 3.2 2.5 - 4.5 mg/dL 06/27/2025 5:03 AM EDT [facility] Blood Venous blood specimen / Unknown Venipuncture / Unknown 06/27/2025 4:03 AM EDT 06/27/2025 4:40 AM EDT us Chilo Morales MD LAB BLOOD ORDERABLES Final Result Performing Organization Address [facility] Co de Phone Number [facility] [address] [place] [address] * (ABNORMAL) Magnesium, Plasma (06/27/2025 4:03 AM EDT) Magnesium, Plasma 1.5(L) 1.9 - 2.4 mg/dL 06/27/2025 5:03 AM EDT [facility] Blood Venous blood specimen / Unknown Venipuncture / Unknown 06/27/2025 4:03 AM EDT 06/27/2025 4:40 AM EDT us Chilo Morales MD LAB BLOOD ORDERABLES Final Result Performing Organization Address City/[facility] Co de Phone Number [facility] [address] [place] [address] * (ABNORMAL) CBC and Differential (06/27/2025 4:03 AM EDT) WBC Count 2.26(L) 3.70 - 10.30 10*3/uL LAB HEMATOLOGY METHOD 06/27/2025 5:26 AM EDT [facility] RBC Count 2.83(L) 3.90 - 5.20 10*6/uL LAB HEMATOLOGY METHOD 06/27/2025 5:26 AM EDT [facility] HGB 8.6(L) 11.2 - 15.7 g/dL LAB HEMATOLOGY METHOD 06/27/2025 5:26 AM EDT [facility] HCT 25.9(L) 34.0 - 45.0 % LAB HEMATOLOGY METHOD 06/27/2025 5:26 AM EDT [facility] Platelet Count 38(L) 155 - 369 10*3/uL LAB HEMATOLOGY METHOD 06/27/2025 5:26 AM EDT [facility] MCV 92 79 - 98 fL LAB HEMATOLOGY METHOD 06/27/2025 5:26 AM EDT [facility] MCH 30.4 26.0 - 32.0 pg LAB HEMATOLOGY METHOD 06/27/2025 5:26 AM EDT [facility] MCHC 33.2 30.7 - 35.5 g/dL LAB HEMATOLOGY METHOD 06/27/2025 5:26 AM EDT [facility] RDW 15.9(H) 11.5 - 14.5 % LAB HEMATOLOGY METHOD 06/27/2025 5:26 AM EDT [facility] MPV 11.8 8.8 - 12.5 fL LAB HEMATOLOGY METHOD 06/27/2025 5:26 AM EDT [facility] nRBC 0.0 <=0.0 per 100 WBCs LAB HEMATOLOGY METHOD 06/27/2025 5:26 AM EDT [facility] Differential Type Automated LAB HEMATOLOGY METHOD 06/27/2025 5:26 AM EDT [facility] Neutrophils % 43 % LAB HEMATOLOGY METHOD 06/27/2025 5:26 AM EDT [facility] Lymphocytes % 30 % LAB HEMATOLOGY METHOD 06/27/2025 5:26 AM EDT [facility] Monocytes % 24 % LAB HEMATOLOGY METHOD 06/27/2025 5:26 AM EDT [facility] Eosinophils % 3 % LAB HEMATOLOGY METHOD 06/27/2025 5:26 AM EDT [facility] Basophils % 0 % LAB HEMATOLOGY METHOD 06/27/2025 5:26 AM EDT [facility] Immature Granulocytes % 0 % LAB HEMATOLOGY METHOD 06/27/2025 5:26 AM EDT [facility] Neutrophils Absolute 0.98(LL) 1.60 - 6.10 10*3/uL LAB HEMATOLOGY METHOD 06/27/2025 5:26 AM EDT [facility] Lymphocytes Absolute 0.67(L) 1.20 - 3.90 10*3/uL LAB HEMATOLOGY METHOD 06/27/2025 5:26 AM EDT [facility] Monocytes Absolute 0.53 0.30 - [...] BLOOD ORDERABLES Final Result [facility] [address] [place] [address] * (ABNORMAL) POCT glucose meter (06/27/2025 12:02 [...] Comment 06/27/2025 12:04 AM EDT [facility] Production Grip ID Torrie Alston 12:04 AM EDT [facility] Device ID [id number] 06/27/2025 12:04 AM EDT [facility] Specimen Type POC Capillary 06/27/2025 12:04 AM EDT [facility] Blood Capillary blood specimen / Unknown 06/27/2025 12:02 AM EDT 06/27/2025 12:04 AM EDT us Chilo Morales MD LAB POINT OF CARE T EST DOCKED DEVICE UNSOLICITED RESULTS Final Result Performing Organization Address [facility] de Phone Number HEALTHCARE LAB [address] [place] [address] * (ABNORMAL) POCT glucose meter (06/26/2025 8:51 PM EDT) Pathologist [facility] POCT Glucose 154(H) 74 - 99 mg/dL [...] Comment 06/26/2025 8:53 PM EDT HEALTHCARE LAB Production Grip ID Torrie Alston 8:53 PM EDT HEALTHCARE LAB Device ID [id number] 06/26/2025 8:53 PM EDT [facility] Specimen Type POC Capillary 06/26/2025 8:53 PM EDT [facility] Blood Capillary blood specimen / Unknown 06/26/2025 8:51 PM EDT 06/26/2025 8:53 PM EDT us Chilo Morales MD LAB POINT OF CARE T EST DOCKED DEVICE UNSOLICITED RESULTS Final Result Performing Organization Address City/[facility] Co de Phone Number [facility] [address] [place] [address] * (ABNORMAL) POCT glucose meter (06/26/2025 4:56 PM EDT) Pathologist [facility] POCT Glucose 253(H) 74 - 99 [...] Comment 06/26/2025 4:58 PM EDT HEALTHCARE LAB Production Grip ID Evelio Munoz 06/26/2025 4:58 PM EDT HEALTHCARE LAB Device ID [id number] 06/26/2025 4:58 PM EDT HEALTHCARE LAB Specimen Type POC Capillary 06/26/2025 4:58 PM EDT HEALTHCARE LAB Blood Capillary blood specimen / Unknown 06/26/2025 4:56 PM EDT 06/26/2025 4:58 PM EDT us Chilo Morales MD LAB POINT OF CARE T EST DOCKED DEVICE UNSOLICITED RESULTS Final Result Performing Organization Address City/[facility] Co de Phone Number HEALTHCARE LAB [address] [place] [address] * (ABNORMAL) POCT glucose meter (06/26/2025 12:16 PM EDT) [facility] POCT Glucose 228(H) 74 - 99 mg/dL [...] Comment 06/26/2025 12:18 PM EDT HEALTHCARE LAB Production Grip ID Evelio Munoz 06/26/2025 12:18 PM EDT HEALTHCARE LAB Device ID [id number] 06/26/2025 12:18 PM EDT HEALTHCARE LAB Specimen Type POC Capillary 06/26/2025 12:18 PM EDT HEALTHCARE LAB Blood Capillary blood specimen / Unknown 06/26/2025 12:16 PM EDT 06/26/2025 12:18 PM EDT us Chilo Morales MD LAB POINT OF CARE T EST DOCKED DEVICE UNSOLICITED RESULTS Final Result [facility] [address] [place] [address] * (ABNORMAL) Cystatin C (06/26/2025 11:13 AM EDT) Cystatin C 3.12(H) 0.61 - 0.95 mg/L 06/26/2025 1:26 PM EDT [facility] Blood Venous blood specimen / Unknown Venipuncture / Unknown 06/26/2025 11:13 AM EDT 06/26/2025 11:30 AM EDT Chilo Morales MD LAB BLOOD ORDERABLES Final Result Performing Organization Address City/[facility]/ZIP Co de Phone Number [facility] [address] [place] [address] * Protein, Random, Urine with Creatinine (06/26/2025 10:40 AM EDT) Protein, Urine 56 mg/dL 06/26/2025 11:35 AM EDT [facility] Creatinine, Urine 181 mg/dL 06/26/2025 11:35 AM EDT [facility] Protein/Creati nine Ratio 0.3 mg/mg Creat 06/26/2025 11:35 AM EDT [facility] Urine Urine specimen obtained by clean catch procedure / Unknown Non-blood Collection / Unknown 06/26/2025 10:40 AM EDT 06/26/2025 11:03 AM EDT Chilo Morales MD LAB URINE ORDERABLES Final Result [facility] [address] [place] [address] * Urea nitrogen, urine (06/26/2025 10:40 AM EDT) Urea Nitrogen, Urine 938 mg/dL 06/26/2025 2:02 PM EDT [facility] Urine Urine specimen obtained by clean catch procedure / Unknown Non-blood Collection / Unknown 06/26/2025 10:40 AM EDT 06/26/2025 11:03 AM EDT us Chilo Morales MD LAB URINE ORDERABLES Final Result Performing Organization Address City/[facility]/ZIP Co de Phone Number [facility] [address] [place] [address] * (ABNORMAL) POCT glucose meter (06/26/2025 9:00 [...] for testing. Comment 06/26/2025 9:02 AM EDT [facility] Production Grip ID Evelio Munoz 06/26/2025 9:02 AM EDT [facility] Device ID [id number] 06/26/2025 9:02 AM EDT [facility] Specimen Type POC Capillary 06/26/2025 9:02 AM EDT [facility] Blood Capillary blood specimen / Unknown 06/26/2025 9:00 AM EDT 06/26/2025 9:02 AM EDT us Chilo Morales MD LAB POINT OF CARE T EST DOCKED DEVICE UNSOLICITED RESULTS Final Result Performing Organization Address City/[facility] Co de Phone Number HEALTHCARE LAB [address] [place] [address] * POCT glucose meter (06/26/2025 8:30 AM [...] for testing. Comment 06/26/2025 8:31 AM EDT [facility] Production Grip ID Evelio Munoz 06/26/2025 8:31 AM EDT HEALTHCARE LAB Device ID [id number] 06/26/2025 8:31 AM EDT [facility] Specimen Type POC Capillary 06/26/2025 8:31 AM EDT [facility] Blood Capillary blood specimen / Unknown 06/26/2025 8:30 AM EDT 06/26/2025 8:31 AM EDT us Chilo Morales MD LAB POINT OF CARE T EST DOCKED DEVICE UNSOLICITED RESULTS Final Result Performing Organization Address City/[facility]/ZIP Co de Phone Number [facility] [address] [place] [address] * (ABNORMAL) Osmolality (06/26/2025 3:47 AM EDT) Pathologist [facility] Osmolality, Serum 307(H) 280 - 301 mOsm/Kg 06/26/2025 9:36 AM EDT [facility] Blood Venous blood specimen / Unknown Venipuncture / Unknown 06/26/2025 3:47 AM EDT 06/26/2025 4:09 AM EDT us Chilo Morales MD LAB BLOOD ORDERABLES Final Result Performing Organization Address City/[facility]/ZIP Co de Phone Number [facility] [address] [place] [address] * (ABNORMAL) Comprehensive metabolic panel (06/26/2025 3:47 AM EDT) Glucose, Plasma 117(H) 74 - 99 mg/dL 06/26/2025 4:51 AM EDT [facility] BUN, Plasma 35(H) 8 - 23 mg/dL 06/26/2025 4:51 AM EDT [facility] Creatinine, Plasma 2.32(H) 0.60 - 1.10 mg/dL 06/26/2025 4:51 AM EDT [facility] BUN/Creatinine Ratio 15 06/26/2025 4:51 AM EDT [facility] Sodium, Plasma 136 136 - 145 mmol/L 06/26/2025 4:51 AM EDT [facility] Potassium, Plasma 4.2 3.6 - 4.9 mmol/L 06/26/2025 4:51 AM EDT [facility] Chloride, Plasma 110(H) 97 - 107 mmol/L 06/26/2025 4:51 AM EDT [facility] CO2, Plasma 17(L) 22 - 29 mmol/L 06/26/2025 4:51 AM EDT [facility] Anion Gap 9 6 - 16 mmol/L 06/26/2025 4:51 AM EDT [facility] Total Calcium, Plasma 8.9 8.9 - 10.2 mg/dL 06/26/2025 4:51 AM EDT [facility] Total Protein 5.9(L) 6.3 - 7.9 g/dL 06/26/2025 4:51 AM EDT [facility] Albumin, Plasma 2.8(L) 3.5 - 5.2 g/dL 06/26/2025 4:51 AM EDT [facility] AST, Plasma 64(H) 10 - 35 U/L 06/26/2025 4:51 AM EDT [facility] ALT, Plasma 23 10 - 35 U/L 06/26/2025 4:51 AM EDT [facility] Alkaline Phosphatase, Plasma 189(H) 46 - 142 U/L 06/26/2025 4:51 AM EDT [facility] Total Bilirubin, Plasma 1.9(H) 0.2 - 1.1 mg/dL 06/26/2025 4:51 AM EDT [facility] eGFRcr 23.3 mL/min/1.7 3m*2 06/26/2025 4:51 AM EDT [facility] Comment:Reported eGFRcr in m L/min/1.73m2 is based the CKD-EPI 2020 equation that does not use a race coefficient. Blood Venous blood specimen / Unknown Venipuncture / Unknown 06/26/2025 3:47 AM EDT 06/26/2025 4:09 AM EDT us Chilo Morales MD LAB BLOOD ORDERABLES Final Result [facility] [address] [place] [address] * Phosphorus, Plasma (06/26/2025 3:47 AM EDT) Phosphorus, Plasma 3.4 2.5 - 4.5 mg/dL 06/26/2025 4:51 AM EDT HEALTHCARE LAB Blood Venous blood specimen / Unknown Venipuncture / Unknown 06/26/2025 3:47 AM EDT 06/26/2025 4:09 AM EDT Chilo Morales MD LAB BLOOD ORDERABLES Final Result Performing Organization Address [facility] de Phone Number [facility] [address] [place] [address] * (ABNORMAL) Magnesium, Plasma (06/26/2025 3:47 AM EDT) Magnesium, Plasma 1.7(L) 1.9 - 2.4 mg/dL 06/26/2025 4:51 AM EDT [facility] Blood Venous blood specimen / Unknown Venipuncture / Unknown 06/26/2025 3:47 AM EDT 06/26/2025 4:09 AM EDT Chilo Morales MD LAB BLOOD ORDERABLES Final Result Performing Organization Address [facility] de Phone Number [facility] [address] [place] [address] * (ABNORMAL) CBC and Differential (06/26/2025 3:47 AM EDT) WBC Count 1.89(L) 3.70 - 10.30 10*3/uL LAB HEMATOLOGY METHOD 06/26/2025 4:54 AM EDT [facility] RBC Count 2.75(L) 3.90 - 5.20 10*6/uL LAB HEMATOLOGY METHOD 06/26/2025 4:54 AM EDT [facility] HGB 8.3(L) 11.2 - 15.7 g/dL LAB HEMATOLOGY METHOD 06/26/2025 4:54 AM EDT [facility] HCT 25.7(L) 34.0 - 45.0 % LAB HEMATOLOGY METHOD 06/26/2025 4:54 AM EDT [facility] Platelet Count 38(L) 155 - 369 10*3/uL LAB HEMATOLOGY METHOD 06/26/2025 4:54 AM EDT [facility] MCV 94 79 - 98 fL LAB HEMATOLOGY METHOD 06/26/2025 4:54 AM EDT [facility] MCH 30.2 26.0 - 32.0 pg LAB HEMATOLOGY METHOD 06/26/2025 4:54 AM EDT [facility] MCHC 32.3 30.7 - 35.5 g/dL LAB HEMATOLOGY METHOD 06/26/2025 4:54 AM EDT [facility] RDW 16.2(H) 11.5 - 14.5 % LAB HEMATOLOGY METHOD 06/26/2025 4:54 AM EDT [facility] MPV 12.5 8.8 - 12.5 fL LAB HEMATOLOGY METHOD 06/26/2025 4:54 AM EDT [facility] nRBC 0.0 <=0.0 per 100 WBCs LAB HEMATOLOGY METHOD 06/26/2025 4:54 AM EDT [facility] Differential Type Automated LAB HEMATOLOGY METHOD 06/26/2025 4:54 AM EDT [facility] Neutrophils % 39 % LAB HEMATOLOGY METHOD 06/26/2025 4:54 AM EDT [facility] Lymphocytes % 32 % LAB HEMATOLOGY METHOD 06/26/2025 4:54 AM EDT [facility] Monocytes % 23 % LAB HEMATOLOGY METHOD 06/26/2025 4:54 AM EDT HEALTHCARE LAB Eosinophils % 4 % LAB HEMATOLOGY METHOD 06/26/2025 4:54 AM EDT [facility] Basophils % 1 % LAB HEMATOLOGY METHOD 06/26/2025 4:54 AM EDT [facility] Immature Granulocytes % 1 % LAB HEMATOLOGY METHOD 06/26/2025 4:54 AM EDT [facility] Neutrophils Absolute 0.75(LL) 1.60 - 6.10 10*3/uL LAB HEMATOLOGY METHOD 06/26/2025 4:54 AM EDT [facility] Lymphocytes Absolute 0.60(L) 1.20 - [...] BLOOD ORDERABLES Final Result Performing Organization Address City/[facility] Co de Phone Number HEALTHCARE LAB [address] [place] [address] * (ABNORMAL) POCT glucose meter (06/25/2025 7:49 [...] Comment 06/25/2025 7:51 PM EDT HEALTHCARE LAB Production Grip ID Jeannie Espinoza Filipe 025 7:51 PM EDT HEALTHCARE LAB Device ID [id number] 06/25/2025 7:51 PM EDT HEALTHCARE LAB Specimen Type POC Capillary 06/25/2025 7:51 PM EDT HEALTHCARE LAB Blood Capillary blood specimen / Unknown 06/25/2025 7:49 PM EDT 06/25/2025 7:51 PM EDT us Chilo Morales MD LAB POINT OF CARE T EST DOCKED DEVICE UNSOLICITED RESULTS Final Result Performing Organization Address City/[facility]/ZIP Co de Phone Number [facility] [address] [place] [address] * (ABNORMAL) POCT glucose meter (06/25/2025 6:18 [...] 06/25/2025 6:19 PM EDT [facility] Production Grip ID Nadia Salazar 6:19 PM EDT [facility] Device ID [id number] 06/25/2025 6:19 PM EDT HEALTHCARE LAB Specimen Type POC Capillary 06/25/2025 6:19 PM EDT [facility] Blood Capillary blood specimen / Unknown 06/25/2025 6:18 PM EDT 06/25/2025 6:19 PM EDT Kadie Mauro MD LAB POINT OF CARE TE ST DOCKED DEVICE UNSOLICITED RESULTS Final Result [facility] [address] [place] [address] * XR Chest 1 View (06/25/2025 3:53 [...] LAB HEMATOLOGY METHOD 06/25/2025 4:38 PM EDT [facility] Elliptocytes/Ova locytes Present LAB HEMATOLOGY METHOD 06/25/2025 4:38 PM EDT [facility] RBC Morphology Slide Reviewed LAB HEMATOLOGY METHOD 06/25/2025 4:38 PM EDT [facility] Platelet Estimate Platelet smear estimate consistent with automated count LAB HEMATOLOGY METHOD 06/25/2025 4:38 PM EDT [facility] Blood Venous blood specimen / Unknown Venipuncture / Unknown 06/25/2025 3:00 PM EDT 06/25/2025 3:10 PM EDT us Raymundo Childers MD LAB BLOOD ORDERABLES Final Resul t [facility] [address] [place] [address] * (ABNORMAL) Manual Differential (06/25/2025 3:00 PM EDT) Blasts % 0 % LAB HEMATOLOGY METHOD 06/25/2025 4:38 PM EDT [facility] Promyelocytes % 0 % LAB HEMATOLOGY METHOD 06/25/2025 4:38 PM EDT [facility] Myelocytes % 0 % LAB HEMATOLOGY METHOD 06/25/2025 4:38 PM EDT [facility] Metamyelocytes % 0 % LAB HEMATOLOGY METHOD 06/25/2025 4:38 PM EDT [facility] Neutrophils % 69 % LAB HEMATOLOGY METHOD 06/25/2025 4:38 PM EDT [facility] Lymphocytes % 15 % LAB HEMATOLOGY METHOD 06/25/2025 4:38 PM EDT [facility] Reactive Lymphocytes % 0 % LAB HEMATOLOGY METHOD 06/25/2025 4:38 PM EDT [facility] Monocytes % 11 % LAB HEMATOLOGY METHOD 06/25/2025 4:38 PM EDT [facility] Eosinophils % 1 % LAB HEMATOLOGY METHOD 06/25/2025 4:38 PM EDT [facility] Basophils % 4 % LAB HEMATOLOGY METHOD 06/25/2025 4:38 PM EDT [facility] Blasts Absolute LAB HEMATOLOGY METHOD 06/25/2025 4:38 PM EDT [facility] Promyelocytes Absolute LAB HEMATOLOGY METHOD 06/25/2025 4:38 PM EDT [facility] Myelocytes Absolute LAB HEMATOLOGY METHOD 06/25/2025 4:38 PM EDT [facility] Metamyelocytes Absolute LAB HEMATOLOGY METHOD 06/25/2025 4:38 PM EDT [facility] Neutrophils Absolute 1.61 1.60 - 6.10 10*3/uL LAB HEMATOLOGY METHOD 06/25/2025 4:38 PM EDT [facility] Lymphocytes Absolute 0.35(L) 1.20 - 3.90 10*3/uL LAB HEMATOLOGY METHOD 06/25/2025 4:38 PM EDT [facility] Reactive Lymphocytes Absolute LAB HEMATOLOGY METHOD 06/25/2025 4:38 PM EDT [facility] Monocytes Absolute 0.26(L) 0.30 - 0.90 10*3/uL LAB HEMATOLOGY METHOD 06/25/2025 4:38 PM EDT [facility] Eosinophils Absolute 0.02 0.00 - 0.50 10*3/uL LAB HEMATOLOGY METHOD 06/25/2025 4:38 PM EDT [facility] Basophils Absolute 0.09 0.00 - 0.10 10*3/uL LAB HEMATOLOGY METHOD 06/25/2025 4:38 PM EDT [facility] Blood Venous blood specimen / Unknown Venipuncture / Unknown 06/25/2025 3:00 PM EDT 06/25/2025 3:10 PM EDT us Raymundo Childers MD LAB BLOOD ORDERABLES Final Resul t [facility] [address] [place] [address] * Phosphorus (06/25/2025 3:00 PM EDT) Phosphorus, Plasma 3.5 2.5 - 4.5 mg/dL 06/25/2025 3:36 PM EDT [facility] Blood Venous blood specimen / Unknown Venipuncture / Unknown 06/25/2025 3:00 PM EDT 06/25/2025 3:11 PM EDT us Raymundo Childers MD LAB BLOOD ORDERABLES Final Resul t Performing Organization Address [facility]/[place] [address] * (ABNORMAL) Magnesium (06/25/2025 3:00 PM EDT) Magnesium, Plasma 1.6(L) 1.9 - 2.4 mg/dL 06/25/2025 3:36 PM EDT [facility] Blood Venous blood specimen / Unknown Venipuncture / Unknown 06/25/2025 3:00 PM EDT 06/25/2025 3:11 PM EDT us Raymundo Childers MD LAB BLOOD ORDERABLES Final Resul t Performing Organization Address City/[facility]/ZIP Co de Phone Number [facility] [address] [place] [address] * (ABNORMAL) CMP (06/25/2025 3:00 PM EDT) Glucose, Plasma 242(H) 74 - 99 mg/dL 06/25/2025 3:36 PM EDT [facility] BUN, Plasma 37(H) 8 - 23 mg/dL 06/25/2025 3:36 PM EDT [facility] Creatinine, Plasma 2.50(H) 0.60 - 1.10 mg/dL 06/25/2025 3:36 PM EDT [facility] BUN/Creatinine Ratio 15 06/25/2025 3:36 PM EDT [facility] Sodium, Plasma 132(L) 136 - 145 mmol/L 06/25/2025 3:36 PM EDT [facility] Potassium, Plasma 4.3 3.6 - 4.9 mmol/L 06/25/2025 3:36 PM EDT [facility] Chloride, Plasma 104 97 - 107 mmol/L 06/25/2025 3:36 PM EDT [facility] CO2, Plasma 17(L) 22 - 29 mmol/L 06/25/2025 3:36 PM EDT [facility] Anion Gap 11 6 - 16 mmol/L 06/25/2025 3:36 PM EDT [facility] Total Calcium, Plasma 9.1 8.9 - 10.2 mg/dL 06/25/2025 3:36 PM EDT [facility] Total Protein 6.7 6.3 - 7.9 g/dL 06/25/2025 3:36 PM EDT [facility] Albumin, Plasma 3.0(L) 3.5 - 5.2 g/dL 06/25/2025 3:36 PM EDT [facility] AST, Plasma 76(H) 10 - 35 U/L 06/25/2025 3:36 PM EDT [facility] ALT, Plasma 29 10 - 35 U/L 06/25/2025 3:36 PM EDT [facility] Alkaline Phosphatase, Plasma 218(H) 46 - 142 U/L 06/25/2025 3:36 PM EDT [facility] Total Bilirubin, Plasma 2.1(H) 0.2 - 1.1 mg/dL 06/25/2025 3:36 PM EDT [facility] eGFRcr 21.3 mL/min/1.7 3m*2 06/25/2025 3:36 PM EDT [facility] Comment:Reported eGFRcr in m L/min/1.73m2 is based the CKD-EPI 2020 equation that does not use a race coefficient. Blood Venous blood specimen / Unknown Venipuncture / Unknown 06/25/2025 3:00 PM EDT 06/25/2025 3:11 PM EDT us Raymundo Childers MD LAB BLOOD ORDERABLES Final Resul t Performing Organization Address [facility] [place] [address] * (ABNORMAL) PT-INR (06/25/2025 3:00 PM EDT) Prothrombin Time 22.3(H) 12.0 - 14.3 sec 06/25/2025 3:32 PM EDT [facility] INR 2.0(H) 0.9 - 1.1 06/25/2025 3:[address] [facility] Blood Venous blood specimen / Unknown Venipuncture / Unknown 06/25/2025 3:00 PM EDT 06/25/2025 3:11 PM EDT Narrative [facility] - 06/25/2025 3:32 PM EDT OPTIMAL INR RANGES FOR PATIENT ON ORAL ANTICOAGULANT THERAPY Prevention of venous thromboembolism INR 2.0 to 3.0 In patients with heart disease: Atrial fibrillation INR 2.0 to 3.0 Valvular heart disease INR 2.0 to 3.0 Tissue heart valves INR 2.0 to 3.0 Mechanical prosthetic valves INR 2.5 to 3.5 Prevention of recurrent [place] INR 2.5 to 3.5 us Raymundo Childers MD LAB BLOOD ORDERABLES Final Resul t Performing Organization Address City/[facility]/[place] [address] * (ABNORMAL) CBC w/diff (06/25/2025 3:00 PM EDT) WBC Count 2.33(L) 3.70 - 10.30 10*3/uL LAB HEMATOLOGY METHOD 06/25/2025 4:38 PM EDT [facility] RBC Count 2.99(L) 3.90 - 5.20 10*6/uL LAB HEMATOLOGY METHOD 06/25/2025 4:38 PM EDT [facility] HGB 9.3(L) 11.2 - 15.7 g/dL LAB HEMATOLOGY METHOD 06/25/2025 4:38 PM EDT [facility] HCT 28.0(L) 34.0 - 45.0 % LAB HEMATOLOGY METHOD 06/25/2025 4:38 PM EDT [facility] Platelet Count 39(L) 155 - 369 10*3/uL LAB HEMATOLOGY METHOD 06/25/2025 4:38 PM EDT [facility] MCV 94 79 - 98 fL LAB HEMATOLOGY METHOD 06/25/2025 4:38 PM EDT [facility] MCH 31.1 26.0 - 32.0 pg LAB HEMATOLOGY METHOD 06/25/2025 4:38 PM EDT [facility] MCHC 33.2 30.7 - 35.5 g/dL LAB HEMATOLOGY METHOD 06/25/2025 4:38 PM EDT [facility] RDW 16.2(H) 11.5 - 14.5 % LAB HEMATOLOGY METHOD 06/25/2025 4:38 PM EDT [facility] MPV 11.6 8.8 - 12.5 fL LAB HEMATOLOGY METHOD 06/25/2025 4:38 PM EDT [facility] nRBC 0.0 <=0.0 per 100 WBCs LAB HEMATOLOGY METHOD 06/25/2025 4:38 PM EDT [facility] Differential Type Manual LAB HEMATOLOGY METHOD 06/25/2025 4:38 PM EDT [facility] Blood Venous blood specimen / Unknown Venipuncture / Unknown 06/25/2025 3:00 PM EDT 06/25/2025 3:10 PM EDT Narrative [facility] - 06/25/2025 4:38 PM EDT Therapeutic [...] is no longer being reported. us Raymundo Cihlders MD LAB BLOOD ORDERABLES Final Resul t Performing Organization Address City/[facility]/ZIP Co de Phone Number [facility] [address] [place] [address] * ECG Adult (06/25/2025 2:48 PM EDT) EKG DIAGNOSIS CLASS Abnormal MUSE ECG Ventricular Rate 61 BPM MUSE ECG QRSD Interval 86 ms MUSE ECG QT Interval 448 ms MUSE ECG QTC Interval 450 ms MUSE ECG R [place] -25 degrees MUSE ECG T Wave [place] 25 degrees MUSE ECG Diagnosis Poor data [...] glucose meter (06/25/2025 2:27 PM EDT) Pathologist [facility] POCT Glucose 245(H) 74 - 99 mg/dL 06/25/2025 2:29 PM EDT [employer] [facility] Comment:Accuracy of a glucos e [...] Comment 06/25/2025 2:29 PM EDT [facility]ALTHCARE LAB Production Grip ID Hanane [place] 2:29 PM EDT [facility]ALTH[facility]ARE LAB Device ID [id number] 06/25/2025 2:29 PM EDT [facility]ALTH[facility]ARE LAB Specimen Type POC Capillary 06/25/2025 2:29 PM EDT [facility] Blood Capillary blood specimen / Unknown 06/25/2025 2:27 PM EDT 06/25/2025 2:29 PM EDT us Generic Provider Poct LAB POINT OF CARE TEST DOCKED DEVICE UNSOLICITED RESULTS Final Result Performing Organization Address City/State/[facility] Co de Phone Number HEALTHCARE LAB [address] [place] [id number] documented in this encounter Visit Diagnoses Diagnosis [...] stage 3b (CMS/HCC) 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 peripheral [...] Discontinued, Routine 2115 (Not Given - Provider: Fleecia Khanna - Reason: Patient/family refused) 0907 (Not [...] Date End Date Alvarez Ordaz MD [address] [place] [address] PCP - General Family Medicine 12/07/24 Lea Fernando [address] [facility] [address] [place] [address] Proofer Endocrinology 08/29/24 Rachel Ray APRN [address] [facility] [address] [place] [address] Nurse Practitioner Gastroenterology 09/24/24 Tamera Isabel LPN VALUE-BASED TRANSFORMATION PROGRAM Licensed Practical Nurse 05/29/25 Alina Lovett, RN [facility]-VASCULAR & INTERVENTIONAL RADIOLOGY Registered Nurse 06/26/25 06/26/25 documented as of this encounter
--- OUTSIDE RECORDS SUMMARY | 2025-07-11 09:01 | XMS_ITS | Encounter Summary ---
Author Organization [facility] Address [address] [place] [address] Care Team Providers Care Copywriting Intern Name Role Phone Lea Fernando Unavailable [phone] Rachel Ray APRN Unavailable [phone] Alvarez Zimmer MD Primary Care Provider [phone] Tamera Isabel DELIVERY DEPARTMENT SUPERVISOR Unavailable Unavailabl Monique Garay DELIVERY DEPARTMENT SUPERVISOR Unavailable Unavailable Reason for Referral * Clinic-Administered Medication (Routine) - Closed Specialty Diagnoses / Procedures Referred By Eder t Referred To Contact Diagnoses Other ascites Procedures [place] ABDOM PARACENTESIS DX/THER W IMAGING GUIDANCE Micheal Glasgow APRN, DNP [address] [place] [address] Phone: tel: fax: [facility] [address] [place] [address] Phone: tel: fax: Referral ID Status Reason Start Date Expiration Date Visits Re quested Visits Authorized [id number] Closed 07/11/2025 01/10/2027 1 1 * Imaging (Routine) - Closed Specialty Diagnoses / Procedures Referred By Contherbert t Referred To Contact Radiology Diagnoses Shortness of breath Pleural effusion Procedures US Guided Thoracentesis Marianna Gordon APRN [address] [place] [address] Phone: tel: fax: Referral ID Status Reason Start Date Expiration Date Visits Re quested Visits Authorized [id number] Closed 06/14/2025 12/14/2026 1 1 Reason for Visit * Imaging (Routine) - Closed Specialty Diagnoses / Procedures Referred By Eder zhu Referred To Contact Radiology Diagnoses Shortness of breath Pleural effusion Procedures US Guided Thoracentesis Marianna Gordon APRN [address] [place] [address] Phone: tel: fax: Referral ID Status Reason Start Date Expiration Date Visits Re quested Visits Authorized [id number] Closed 06/14/2025 12/14/2026 1 1 Encounter Details Date Type Department Care Team (Latest Contact Info) Description 07/11/2025 9:01 AM EDT - 07/11/2025 12:09 PM EDT Hospital Encounter [facility] Interventional Radiology [address] [place] [address] Stacy Houston RN EMERGENCY SERVICES Shortness of [...] week 01/10/2025 How often do you attend [facility] or druze services? Patient unable to [...] often do you attend chur ch or druze services? Never 05/29/2025 Do you [...] more drinks on one occasion? Never 06/25/2025 [facility] - [...] drink first t kennedy in the morning (EYE-NECK FITTER) to steady your nerves or to get rid of a hangover? 0 06/25/2025 CAGE Questionnaire Score 0 025 Utilities Answer Date Recorded In the past 12 months has [employer], gas, oil, or water [employer] threatened to shut off services in your [...] call: Vascular & Interventional Radiology Clinic at [phone] Tuesday - Tuesday 8:00 AM to 4:30 PM After hours, weekends, and holidays please call [phone] and ask for the Interventional Radiology provider/Resident on-call For Emergencies please go to the nearest Emergency Room or dial 911. Intervention Radiology Appointments: If you need to reschedule a procedure, please call our Schedulers at [phone], option 4. If you need to schedule or reschedule a clinic appointment, please call [phone]. [facility] Vascular and Interventional Radiology Clinic [facility] [address] [facility] [facility] [place] [address] documented in this encounter Medications at Time [...] 1 03/01/2025 ergocalciferol (Vitamin D-2) 1.25 MG (14040 UT) capsuleIndication s:Vitamin D deficiency Take 1 [...] from the original note were not included. [id number] Discharge Instructions for Paracentesis Paracentesis is a [...] fainting. Last Reviewed Date: 2025 00:00:00 ?? [id number] [employer]. All rights reserved. This information is not intended as a substitute for professional medical care. Always follow your healthcare professional's instructions. * John ZendejasTHEO - Stacy Houston RN - 07/11/2025 12:44 PM EDT Images from the original note were not included. [id number] Discharge Instructions for Thoracentesis Thoracentesis is a [...] blood. Last Reviewed Date: 2025 00:00:00 ?? [id number] [employer]. All rights reserved. This information is not [...] - Any questions with scheduling please call [phone] - Please place orders for desired fluid studies to be sent for analysis prior to procedure Thank you for allowing us to participate in the care of this patient. Micheal Glasgow APRN, DNP Interventional Radiology [phone] [1] Past Medical History: Diagnosis Date ADHD (attention deficit hyperactivity disorder) Allergic Anxiety disorder, unspecified Anxiety Bleeding gums Blood in urine Cataract Chronic kidney disease Cirrhosis (CMS/HCC) Colon cancer screening 09/20/2019 Added automatically from request for surgery [id number] Coronary artery disease Depression 1995 Diabetes mellitus [...] 1979 BLADDER SURGERY N/A Bladder surgery from [facility] BREAST BIOPSY 2011 BREAST SURGERY 2010 BUNIONECTOMY Right CATARACT EXTRACTION Bilateral 2016 CHOLECYSTECTOMY 1979 ESOPHAGOGASTRODUODENOSCOPY HYSTERECTOMY N/A Hysterectomy from [facility] KNEE SURGERY Bilateral ORAL SURGERY N/A Oral [...] g, Intravenous, q15 min PRN, Marianna Gordon, ELECTION SUPERVISOR albumin human 25 % infusion 87.5 g, [...] Description 08/20/2025 9:30 AM EDT Clinical Support [facility] [place] [address] [facility] [address] [place] [address] 08/20/2025 10:30 [address] [facility] [place] [address] [facility] [address] [place] [address] Deysi Ortega [place], [place] [phone] 08/20/2025 11:00 AM EDT Office Visit [facility] [place] [address] [facility] [address] [place] [address] Jude Duque MD [address] [facility] [address] [place] [address] 08/22/2025 11:15 AM EDT Appointment [facility] Interventional Radiology [address] [place] [address] 08/22/2025 12:15 PM EDT Appointment [facility] Interventional Radiology [address] [place] [address] 08/26/2025 1:00 PM EDT Office Visit [facility] Endocrinology [address] [place] [address] Miranda Hobson, ELECTION SUPERVISOR [address] [place] [address] 08/29/2025 10:00 AM EDT Appointment [facility] Interventional Radiology [address] [place] [address] 08/29/2025 11:00 AM EDT Appointment [facility] Interventional Radiology [address] [place] [address] 09/05/2025 10:00 AM EDT Appointment [facility] Interventional Radiology [address] [place] [address] 09/05/2025 11:00 AM EDT Appointment [facility] Interventional Radiology [address] [place] [address] documented as of this encounter Procedures Procedure [...] by ascites and intermittent hepatic hydrothorax TECHNIQUE: Dispatch Lead: ADRI Glasgow Procedure: Limited abdominal ultrasound COMPARISON: [...] complicated by ascites and intermittenthepatic hydrothorax TECHNIQUE: Dispatch Lead: ELECTION SUPERVISOR Micheal Glasgow Procedure: Limited abdominal ultrasound COMPARISON: [...] 07/11/2025 4:21 PM us Marianna N Cheeks ELECTION SUPERVISOR IMG US PROCEDURES Final Resu lt * [...] by ascites and intermittent hepatic hydrothorax TECHNIQUE: Dispatch Lead: ADRI Glasgow Secondary Credit Interviewer: None. Rad Dose: NA Medications: Continuous physiologic [...] complicated by ascites and intermittenthepatic hydrothorax TECHNIQUE: Dispatch Lead: ADRI Glasgow Secondary Credit Interviewer: None. Rad Dose: NA Medications: Continuous physiologic [...] 07/11/2025 4:04 PM us Marianna N Gabrieladeloress ELECTION SUPERVISOR IMG US PROCEDURES Final Resu lt documented [...] documented as of this encounter Care Teams Copywriting Intern Relationship Specialty Start Date End Date Alvarez Zimmer MD [address] [place] [address] PCP - General Family Medicine 12/07/24 Lea Fernando [address] [place] [address] Pyrotechnic Mixer Endocrinology 08/29/24 Rachel Ray APRN [address] [place] [address] Nurse Practitioner Gastroenterology 09/24/24 Tamera Isabel LPN VALUE-BASED TRANSFORMATION PROGRAM Licensed Practical Nurse 05/29/25 Monique Tapia LPN VALUE-BASED [place] [address] TCM Nurse 07/10/25 08/09/25 documented as of this encounter
--- OUTSIDE RECORDS SUMMARY | 2025-07-11 12:10 | XMS_ITS | Encounter Summary ---
Author Organization [facility] Address [address] [place] [address] Care Team Providers Care Machine Hostler Name Role Phone Lea Fernando Unavailable [phone] Rachel Ray HEALTH ANALYST Unavailable [phone] Alvarez Zimmer MD Primary Care Provider Tamera Isabel SHINGLE SAWYER Unavailable Unavailabl Monique Garay SHINGLE SAWYER Unavailable Unavailable Encounter Details Date Type Department Care Team (Latest Contact Info) Description 07/11/2025 12:10 PM EDT - 07/11/2025 11:59 PM EDT Hospital Encounter [facility] [address] [place] [address] Discharge Disposition: Home or Self Care Social [...] often do you attend [facility] or christian services? Patient unable to answer 01/10/2025 Do you belong to any clubs o r organizations such as zoroastrian groups, unions, [employer] or athletic groups, or school groups? Patient [...] you attend chur ch or christian services? Never 05/29/2025 Do you [...] more drinks on one occasion? Never 06/25/2025 [facility] - Occupational Stress Questionnaire Answer [...] drink first t kennedy in the morning (EYE-TREASURY REPRESENTATIVE) to steady your nerves or to get rid of a hangover? 0 06/25/2025 CAGE Questionnaire Score 0 025 Utilities Answer Date Recorded In the past 12 months has th e [employer], gas, oil, or water [employer] threatened to shut off services in your [...] 1 03/01/2025 ergocalciferol (Vitamin D-2) 1.25 MG (96334 UT) capsuleIndication s:Vitamin D deficiency Take 1 [...] Description 08/20/2025 9:30 AM EDT Clinical Support [facility] [place] [address] [place] [address] 08/20/2025 10:30 AM EDT Social Work [facility] [place] [address] [place] [address] [place] [address] 08/20/2025 11:00 AM EDT Office Visit [facility] [place] [address] [place] [address] Jude Duque MD [address] [place] [address] 08/22/2025 11:15 AM EDT Appointment [facility] [address] [place] [phone] 08/22/2025 12:15 PM EDT Appointment [facility] [address] [place] [phone] 08/26/2025 1:00 PM EDT Office Visit [facility] Endocrinology [address] [place] [phone] Mirnada Hobson, HEALTH ANALYST [address] [facility] [address] [place] [phone] 08/29/2025 10:00 AM EDT Appointment [facility] [address] [place] [address] 08/29/2025 11:00 AM EDT Appointment [facility] [address] [place] [phone] 09/05/2025 10:00 AM EDT Appointment [facility] [address] [place] [phone] 09/05/2025 11:00 AM EDT Appointment [facility] [address] [place] [phone] documented as of this encounter Procedures Procedure [...] 07/11/2025 12:36 PM us Micheal E Pee HEALTH ANALYST, DNP IMG XR PROCEDURES Tari l Result [...] as of this encounter Care Teams Machine Hostler Relationship Specialty Start Date End Date Alvarez Zimmer MD [address] [place] [address] PCP - General Family Medicine 12/07/24 Lea Fernando [address] [facility] [address] [place] [phone] Manager Of Supply Chain Endocrinology 08/29/24 Rachel Ray, HEALTH ANALYST [address] [facility] [address] [place] [address] Nurse Practitioner Gastroenterology 09/24/24 Tamera Isabel LPN VALUE-BASED TRANSFORMATION PROGRAM Licensed Practical Nurse 05/29/25 Monique Tapia LPN [employer] [address] TCM Nurse 07/10/25 08/09/25 documented as of this encounter
--- OUTSIDE RECORDS SUMMARY | 2025-07-18 09:08 | XMS_ITS | Encounter Summary ---
Author Organization [facility] Address [address] [place] [address] Care Team Providers Care Telephone Directory Deliverer Name Role Phone Lea Fernando Unavailable [phone] Rachel Ray ANIMAL ANATOMY TEACHER Unavailable [phone] Alvarez Zimmer MD Primary Care Provider [phone] Tamera Isabel SCREEDMAN Unavailable Unavailabl Monique Garay SCREEDMAN Unavailable Unavailable Reason for Referral * Clinic-Administered Medication (Routine) - Closed Specialty Diagnoses / Procedures Referred By Contac t Referred To Contact Diagnoses Other ascites Procedures NE ALBUMIN (HUMAN), 25%, 50ML Shaniqua Mccurdy APRN [address] [place] [address] Phone: tel: fax: Referral ID Status Reason Start Date Expiration Date Visits Re quested Visits Authorized [id number] Closed 07/18/2025 01/17/2027 1 1 * Imaging (Routine) - Closed Specialty Diagnoses / Procedures Referred By Contac t Referred To Contact Radiology Diagnoses Other ascites Procedures US Guided Abdominal Paracentesis Marianna Gordon APRN [address] [place] [address] Phone: tel: fax: Referral ID Status Reason Start Date Expiration Date Visits Re quested Visits Authorized [id number] Closed 06/14/2025 12/14/2026 1 1 * Imaging (Routine) - Closed Specialty Diagnoses / Procedures Referred By Contac t Referred To Contact Radiology Diagnoses Shortness of breath Pleural effusion Procedures US Guided Thoracentesis Marianna Gordon APRN [address] [place] [address] Phone: tel: fax: Referral ID Status Reason Start Date Expiration Date Visits Re quested Visits Authorized [id number] Closed 06/14/2025 12/14/2026 1 1 Reason for Visit * Imaging (Routine) - Closed Specialty Diagnoses / Procedures Referred By Contac t Referred To Contact Radiology Diagnoses Shortness of breath Pleural effusion Procedures US Guided Thoracentesis Marianna Gordon APRN [address] [place] [address] Phone: tel: fax: Referral ID Status Reason Start Date Expiration Date Visits Re quested Visits Authorized [id number] Closed 06/14/2025 12/14/2026 1 1 Encounter Details Date Type Department Care Team (Latest Contact Info) Description 07/18/2025 9:08 AM EDT - 07/18/2025 12:07 PM EDT Hospital Encounter [facility] Interventional Radiology [address] [place] [address] Stu Samayoa Shortness of breath; Pleural effusion; [...] How often do you attend [facility] or restoration services? Patient unable to answer 01/10/2025 Do you belong to any clubs o r organizations such as methodist groups, unions, fraternal or athletic groups, or [...] week 05/29/2025 How often do you attend [facility] or restoration services? Never 05/29/2025 Do you belong to any clubs o r organizations such as methodist groups, unions, fraternal or athletic groups, or [...] one occasion? Never 06/25/2025 [facility] - [...] drink first t kennedy in the morning (EYE-SKIN PILER) to steady your nerves or to get rid of a hangover? 0 06/25/2025 CAGE Questionnaire Score 0 025 Utilities Answer Date Recorded In the past 12 months has th [employer], gas, oil, or water company threatened to [...] call: [facility] Inter[facility] Clinic at [phone] Tuesday - Tuesday 8:00 AM to 4:30 PM After hours, weekends, and holidays please call [phone] and ask for the Interventional Radiology provider/Resident on-call Intervention Radiology Appointments: If you need to reschedule a procedure, please call our Schedulers at [phone], option [phone]. If you need to schedule or reschedule a clinic appointment, please call [phone]. [facility] Interventional Radiology Clinic [address] [place] [address] documented in this encounter Medications at Time [...] 1 03/01/2025 ergocalciferol (Vitamin D-2) 1.25 MG (20417 UT) capsuleIndication s:Vitamin D deficiency Take 1 [...] - Any questions with scheduling please call [phone] - Please place orders for desired fluid studies to be sent for analysis prior to procedure Thank you for allowing us to participate in the care of this patient. Micheal Glasgow, ANIMAL ANATOMY TEACHER, DNP Interventional Radiology [phone] [1] Past Medical History: Diagnosis Date ADHD (attention deficit hyperactivity disorder) Allergic Anxiety disorder, unspecified Anxiety Bleeding gums Blood in urine Cataract Chronic kidney disease Cirrhosis (CMS/HCC) Colon cancer screening 09/20/2019 Added automatically from request for surgery [id number] Coronary artery disease Depression 1995 Diabetes mellitus [...] 1979 BLADDER SURGERY N/A Bladder surgery from [facility] BREAST BIOPSY 2011 BREAST SURGERY 2010 BUNIONECTOMY Right CATARACT EXTRACTION Bilateral 2016 CHOLECYSTECTOMY 1980 ESOPHAGOGASTRODUODENOSCOPY HYSTERECTOMY N/A Hysterectomy from [facility] KNEE SURGERY Bilateral ORAL SURGERY N/A Oral surgery from [facility] OTHER SURGICAL HISTORY 2015 ROOT CANAL WISDOM TOOTH EXTRACTION [3] Social History Tobacco Use Smoking status: Never Passive exposure: Never Smokeless tobacco: Never Vaping Use Vaping status: Never Used Substance Use Topics Alcohol use: Not Currently Drug use: Never [4] No Known Allergies [5] Current Facility-Administered Medications: albumin human 25 % infusion 12.5 g, 12.5 g, Intravenous, q15 min PRN, Marianna Gordon, ANIMAL ANATOMY TEACHER albumin human 25 % infusion 87.5 g, [...] Description 08/20/2025 9:30 AM EDT Clinical Support [facility] [place] [address] [facility] [address] [place] [address] 08/20/2025 10:30 AM EDT Social Work [facility] [place] [address] [facility] [place] [address] [place] [address] 08/20/2025 11:00 AM EDT Office Visit [facility] [place] [address] [facility] [address] [place] [address] Jude Duque MD [address] [facility] [address] [place] [address] 08/22/2025 11:15 AM EDT Appointment [facility] Inter[facility] Radiology [address] [place] [address] 08/22/2025 12:15 PM EDT Appointment [facility] Interventional Radiology [address] [place] [address] 08/26/2025 1:00 PM EDT Office Visit [facility] Endocrinology [address] [place] [address] Miranda Hobson APRN [address] [facility] [address] [place] [address] 08/29/2025 10:00 AM EDT Appointment [facility] Interventional Radiology [address] [place] [address] 08/29/2025 11:00 AM EDT Appointment [facility] Inter[facility] Radiology [address] [place] [address] 09/05/2025 10:00 AM EDT Appointment [facility] Interventional Radiology [address] [place] [address] 09/05/2025 11:00 AM EDT Appointment [facility] Interventional Radiology [address] [place] [address] documented as of this encounter Procedures Procedure [...] complicated by ascites and hepatic hydrothorax. TECHNIQUE: Digital Field Service Technician: Shaniqua Mccurdy APRN Secondary Specialist Employee Labor Relations: None. Rad Dose: NA Medications: Continuous physiologic [...] cirrhosis complicated by ascites andhepatic hydrothorax. TECHNIQUE: Digital Field Service Technician: Shaniqua Mccurdy APRN Secondary Specialist Employee Labor Relations: None. Rad Dose: NA Medications: Continuous physiologic [...] on 07/18/2025 2:18 PM us Marianna Gordon ANIMAL ANATOMY TEACHER IMG US PROCEDURES Final Resu lt * [...] by ascites and recurrent hepatic hydrothorax. TECHNIQUE: Digital Field Service Technician: Shaniqua Mccurdy APRN Secondary Specialist Employee Labor Relations: None. Rad Dose: NA Medications: Continuous physiologic [...] complicated by ascites andrecurrent hepatic hydrothorax. TECHNIQUE: Digital Field Service Technician: Shaniqua Mccurdy APRN Secondary Specialist Employee Labor Relations: None. Rad Dose: NA Medications: Continuous physiologic [...] on 07/18/2025 2:18 PM us Marianna Gordon ANIMAL ANATOMY TEACHER IMG US PROCEDURES Final Resu lt * Body fluid, cytospin, pathologist interpretation (07/18/2025 10:23 AM EDT) Specimen Type Body Fluid LAB HEMATOLOGY METHOD 07/19/2025 12:51 PM EDT [facility] Specimen Source, Body Fluid Peritoneal Fluid LAB HEMATOLOGY METHOD 07/19/2025 12:51 PM EDT [facility] Clinical Diagnosis, Body Fluid Ascites LAB HEMATOLOGY METHOD 07/19/2025 12:51 PM EDT [facility] Interpretation , Body Fluid No evidence of malignancy Predominantly chronic inflammatory cells Light blood A resident was involved in the service. I attest I examined the relevant preparations for the specimens and confirmed the diagnosis or interpretation. 07/19/2025 12:51 PM EDT [facility] Pathologist Signature, Body Fluid 07/19/2025 12:51 PM EDT [facility] Comment:Reviewed by: Kadie dobbs MD LAB CP ASR DISCLAIMER Yes 07/19/2025 12:51 PM EDT [facility] Body Fluid Peritoneal fluid / Unknown Non-blood Collection / Unknown 07/18/2025 10:23 AM EDT 07/18/2025 12:01 PM EDT us Shaniqua Mccurdy APRN LAB BODY FLUIDS AND STOOLS O RDERABLES Final Result Performing Organization Address [facility]/ZIP Co de Phone Number [facility] [address] [place] [address] * Glucose - Ascites (07/18/2025 10:23 AM EDT) Glucose, Fluid 197 mg/dL 07/18/2025 1:43 PM EDT [facility] Peritoneal Fluid Peritoneal cavity structure / Unknown Non-blood Collection / Unknown 07/18/2025 10:23 AM EDT 07/18/2025 12:01 PM EDT Narrative [facility] - 07/18/2025 1:43 PM [...] O RDERABLES Final Result Performing Organization Address City/[facility]/ZIP Co de Phone Number [facility] [address] [place] [address] * Protein - Ascites (07/18/2025 10:23 AM EDT) Total Protein, Fluid 1.3 g/dL 07/18/2025 1:43 PM EDT [facility] Peritoneal Fluid Peritoneal cavity structure / Unknown Non-blood Collection / Unknown 07/18/2025 10:23 AM EDT 07/18/2025 12:01 PM EDT Narrative [facility] - 07/18/2025 1:43 PM EDT This test was developed and its performance characteristics determined by [facility]. The U.S. Food and Drug Administration has not approved or cleared this test. However, FDA clearance or approval is not currently required for clinical use. The results are not intended to be used as the sole means for clinical diagnosis or patient management decisions. us Shaniqua Mccurdy APRN LAB BODY FLUIDS AND STOOLS O RDERABLES Final Result [facility] [address] [place] [address] * (ABNORMAL) Body Fluid Cell Count With Diff - Ascites (07/18/2025 10:23 AM EDT) Color, Body fluid Yellow LAB HEMATOLOGY METHOD 07/18/2025 4:15 PM EDT [facility] Appearance, Body fluid Cloudy(A) LAB HEMATOLOGY METHOD 07/18/2025 4:15 PM EDT [facility] Volume, Body fluid 8.0 cc LAB HEMATOLOGY METHOD 07/18/2025 4:15 PM EDT [facility] Fluid Container Tube 2 LAB HEMATOLOGY METHOD 07/18/2025 4:15 PM EDT [facility] Red Blood Cell Count, Body fluid 7,000 uL LAB HEMATOLOGY METHOD 07/18/2025 4:15 PM EDT [facility] Total Nucleated Cell Count, Body fluid 175 uL LAB HEMATOLOGY METHOD 07/18/2025 4:15 PM EDT [facility] Neutrophils %, Body fluid 3 % LAB HEMATOLOGY METHOD 07/18/2025 4:15 PM EDT [facility] Lymphocytes %, Body fluid 72 % LAB HEMATOLOGY METHOD 07/18/2025 4:15 PM EDT [facility] Monocytes/Macro phages %, Body fluid 22 % LAB HEMATOLOGY METHOD 07/18/2025 4:15 PM EDT [facility] Eosinophils %, Body fluid 0 % LAB HEMATOLOGY METHOD 07/18/2025 4:15 PM EDT [facility] Lining/Mesothel ial Cells %, Body fluid 3 % LAB HEMATOLOGY METHOD 07/18/2025 4:15 PM EDT [facility] Neutrophils Absolute (PMN), Body fluid 5 uL LAB HEMATOLOGY METHOD 07/18/2025 4:15 PM EDT [facility] Lymphocytes Absolute, Body fluid 126 uL LAB HEMATOLOGY METHOD 07/18/2025 4:15 PM EDT [facility] Monocytes/Macro phages Absolute, Body fluid 39 uL LAB HEMATOLOGY METHOD 07/18/2025 4:15 PM EDT [facility] Eosinophils Absolute, Body fluid 0 uL LAB HEMATOLOGY METHOD 07/18/2025 4:15 PM EDT [facility] Basophils Absolute, Body fluid 0 uL LAB HEMATOLOGY METHOD 07/18/2025 4:15 PM EDT [facility] Lining/Mesothel ial Cells Absolute, Body fluid 5 uL LAB HEMATOLOGY METHOD 07/18/2025 4:15 PM EDT [facility] Basophils %, Body fluid 0 % LAB HEMATOLOGY METHOD 07/18/2025 4:15 PM EDT [facility] Body Fluid Peritoneal fluid / Unknown Non-blood Collection / Unknown 07/18/2025 10:23 AM EDT 07/18/2025 12:01 PM EDT Shaniqua Mccurdy APRN LAB BODY FLUIDS AND STOOLS ORDERABLES NO SPECIMEN TYPE/SOURCE Final Result [facility] [address] [place] [address] documented in this encounter Visit Diagnoses Diagnosis [...] documented as of this encounter Care Teams Telephone Directory Deliverer Relationship Specialty Start Date End Date Alvarez Zimmer MD [address] [place] [address] PCP - General Family Medicine 12/07/24 Lea Fernando [address] [place] [address] Diplomatic Interpreter/Translator Endocrinology 08/29/24 Rachel Ray APRN [address] [place] [address] Nurse Practitioner Gastroenterology 09/24/24 Tamera Isabel LPN VALUE-BASED TRANSFORMATION PROGRAM Licensed Practical Nurse 05/29/25 Monique Tapia LPN [employer] [place] [address] TCM Nurse 07/10/25 08/09/25 documented as of this encounter
--- OUTSIDE RECORDS SUMMARY | 2025-07-18 12:08 | XMS_ITS | Encounter Summary ---
Author Organization [facility] Address [address] [place] [address] Care Team Providers Care Stem Setter Name Role Phone Lea Fernando Unavailable [phone] Rachel Ray DUAL RATE DEALER Unavailable [phone] Alvarez Zimmer MD Primary Care Provider [phone] Tamera Isabel REGIONAL SALES CONSULTANT Unavailable Unavailabl Monique Garay REGIONAL SALES CONSULTANT Unavailable Unavailable Encounter Details Date Type Department Care Team (Latest Contact Info) Description 07/18/2025 12:08 PM EDT - 07/18/2025 11:59 PM EDT Hospital Encounter [facility] Rad[facility] [address] [place] [address] Discharge Disposition: Home or Self Care Social [...] you attend [facility] or muslim services? Patient unable to answer 01/10/2025 Do you belong to any clubs o r organizations such as bahai groups, unions, [employer] or athletic groups, or school groups? Patient [...] often do you attend chur ch or muslim services? Never 05/29/2025 Do you [...] 06/25/2025 [facility] - Occupational Stress Questionnaire Answer [...] in a group home (including now)? No 06/26/2025 CAGE ASSESSMENT Answer [...] first t kennedy in the morning (EYE-CHAIN MENDER) to steady your nerves or to get rid of a hangover? 0 06/25/2025 CAGE Questionnaire Score 0 025 Utilities Answer Date Recorded In the past 12 months has th e [employer], gas, oil, or water [employer] threatened to shut off services in your [...] 1 03/01/2025 ergocalciferol (Vitamin D-2) 1.25 MG (16373 UT) capsuleIndication s:Vitamin D deficiency Take 1 [...] Support [facility] [place] [address] [place] [address] 08/20/2025 10:[address] [facility] [place] [address] [facility] [address] [place] [address] Deysi Ortega [place], [place] [id number] 08/20/2025 11:00 AM EDT Office Visit [facility] [place] [address] [place] [address] [place] [address] Jude Duque MD [address] [facility] [address] [place] [address] 08/22/2025 11:15 AM EDT Appointment [facility] Inter[facility] Radiology [address] [place] [address] 08/22/2025 12:15 PM EDT Appointment [facility]iology [address] [place] [address] 08/26/2025 1:00 PM EDT Office Visit [facility] Endocrinology [address] [place] [address] Miranda Hobson P, DUAL RATE DEALER [address] [facility] [address] [place] [address] 08/29/2025 10:00 AM EDT Appointment [facility]iology [address] [place] [address] 08/29/2025 11:00 AM EDT Appointment [facility] [address] [place] [address] 09/05/2025 10:00 AM EDT Appointment [facility] [address] [place] [address] 09/05/2025 11:00 AM EDT Appointment [facility] [address] [place] [address] documented as of this encounter Procedures Procedure [...] MD on 07/18/2025 12:56 PM Shaniqua Mccurdy DUAL RATE DEALER IMG XR PROCEDURES Final Resu lt documented [...] documented as of this encounter Care Teams Stem Setter Relationship Specialty Start Date End Date Alvarez Zimmer MD [address] [place] [address] PCP - General Family Medicine 12/07/24 Lea Fernando [address] [facility] [address] [place] [address] Production Support Consultant Endocrinology 08/29/24 Rachel Ray APRN [address] [facility] [address] [place] [address] Nurse Practitioner Gastroenterology 09/24/24 Tamera Isabel LPN VALUE-BASED TRANSFORMATION PROGRAM Licensed Practical Nurse 05/29/25 Monique Tapia LPN VALUE-BASED [place] [address] TCM Nurse 07/10/25 08/09/25 documented as of this encounter
--- OUTSIDE RECORDS SUMMARY | 2025-07-25 08:57 | XMS_ITS | Encounter Summary ---
Author Organization [facility] Address [address] [place] [address] Care Team Providers Care Counter Installer Name Role Phone Lea Fernando Unavailable [phone] Rachel Ray HEAD CHEF Unavailable [phone] Alvarez Zimmer MD Primary Care Provider [phone] Tamera Isabel CADET DECK Unavailable Unavailabl Monique Garay CADET DECK Unavailable Unavailable Reason for Referral * Imaging (Routine) - Closed Specialty Diagnoses / Procedures Referred By Contac t Referred To Contact Radiology Diagnoses Other ascites Procedures US Guided Abdominal Paracentesis Marianna Gordon APRN [address] [place] [address] Phone: tel: fax: Referral ID Status Reason Start Date Expiration Date Visits Re quested Visits Authorized [id number] Closed 06/14/2025 12/14/2026 1 1 * Imaging (Routine) - Closed Specialty Diagnoses / Procedures Referred By Contac t Referred To Contact Radiology Diagnoses Shortness of breath Pleural effusion Procedures US Guided Thoracentesis Marianna Gordon APRN [address] [place] [address] Phone: tel: fax: Referral ID Status Reason Start Date Expiration Date Visits Re quested Visits Authorized [id number] Closed 06/14/2025 12/14/2026 1 1 * Clinic-Administered Medication (Routine) - Closed Specialty Diagnoses / Procedures Referred By Eder zhu Referred To Contact Diagnoses Other ascites Procedures NH ABDOM PARACENTESIS DX/THER W IMAGING GUIDANCE Marianna Gordon APRN [address] [place] [address] Phone: tel: fax: [facility] [address] [place] [address] Phone: tel: fax: Referral ID Status Reason Start Date Expiration Date Visits Re quested Visits Authorized [id number] Closed 07/25/2025 01/24/2027 1 1 Reason for Visit * Imaging (Routine) - Closed Specialty Diagnoses / Procedures Referred By Eder zhu Referred To Contact Radiology Diagnoses Shortness of breath Pleural effusion Procedures US Guided Thoracentesis Marianna Gordon APRN [address] [place] [address] Phone: tel: fax: Referral ID Status Reason Start Date Expiration Date Visits Re quested Visits Authorized [id number] Closed 06/14/2025 12/14/2026 1 1 Encounter Details Date Type Department Care Team (Late st Contact Info) Description 07/25/2025 8:57 AM EDT - 07/25/2025 1:19 PM EDT Hospital Encounter [facility] Interventional Radiology [address] [place] [address] Kandice Silva, RN [facility] INTERVENTIONAL RADIOLOGY Pleural effusion associated with hepatic disorder (Primary Dx); Shortness of breath; Pleural effusion; Other ascites [...] attend [facility] or jehovah's witness services? Patient unable to answer 01/10/2025 Do you belong to any clubs o r organizations such as oriental orthodox groups, unions, fraternal or athletic groups, [...] often do you attend chur ch or jehovah's witness services? Never 05/29/2025 Do you belong to any clubs o r organizations such as oriental orthodox groups, unions, fraternal or athletic groups, [...] more drinks on one occasion? Never 06/25/2025 [facility] Occupational Stress Questionnaire [...] drink first t kennedy in the morning (EYE-PSYCHIATRIC NURSING AIDE) to steady your nerves or to [...] Sign Reading Time Taken Comments Blood Pressure 108/67 07/25/2025 1:02 PM EDT Pulse 78 07/25/2025 1:02 PM EDT Temperature 36.5 C (97.7 F) 07/25/2025 1:02 PM EDT Respiratory Rate 16 07/25/2025 1:02 PM EDT Oxygen Saturation 97% 07/25/2025 1:02 PM EDT Inhaled Oxygen Concentration - - Weight 85.1 kg (187 lb 9.8 oz) 07/25/2025 9:20 A M EDT Height 165.1 cm (5' 5 ) 07/25/2025 9:20 AM EDT Body Mass Index 31.22 07/25/2025 9:20 AM EDT documented in this encounter Discharge Instructions * Discharge Instructions* Kandice Silva RN - 07/25/2025 12:55 PM EDT *Interventional Radiology* (IR) Questions/Concerns & Appointments: If there are questions or concerns after discharge please call: [facility] Inter[facility]iology Clinic at [phone] Tuesday - Tuesday 8:00 AM to 4:30 PM After hours, weekends, and holidays please call [phone] and ask for the Interventional Radiology provider/Resident on-call Intervention Radiology Appointments: If you need to reschedule a procedure, please call our Schedulers at [phone], option 4. If you need to schedule or reschedule a clinic appointment, please call [phone]. [facility] Vascular and Interventional Radiology Clinic [address] [place] [address] documented in this encounter Medications at Time [...] 1 03/01/2025 ergocalciferol (Vitamin D-2) 1.25 MG (90809 UT) capsuleIndication s:Vitamin D deficiency Take 1 [...] Miscellaneous Notes * Kandice Gamez RN - 07/25/2025 12:56 PM EDT Images from the original note were not included. [id number] Discharge Instructions for Thoracentesis Thoracentesis is a [...] blood. Last Reviewed Date: 2025 00:00:00 ?? [id number] [employer]. All rights reserved. This information is not intended as a substitute for professional medical care. Always follow your healthcare professional's instructions. * John ZendejasTHEO - Kandice Silva RN - 07/25/2025 12:55 PM EDT Images from the original note were not included. [id number] Discharge Instructions for Paracentesis Paracentesis is a [...] fainting. Last Reviewed Date: 2025 00:00:00 ?? [id number] [employer]. All rights reserved. This information is not intended as a substitute for professional medical care. Always follow your healthcare professional's instructions. * Post-Procedure Note - Fabiana Renee APRN, DNP - 07/25/2025 10:30 AM EDT Vascular and Interventional Radiology Brief Postprocedure Note Performed by: Fabiana Renee APRN Senior C Software Developer: Maria Dolores Ontiveros APRN Pre-operative Diagnosis: ascites and right effusion Post-operative Diagnosis: same Type of Anesthesia: Local Description of Findings: ascites and right effusion Technical/Surgical Procedures Used: image guided paracentesis and right thoracentesis Specimen Obtained: Yes, cell count, protein Complications: None Estimated Blood Loss: none Procedure Events Event Event Time See detailed result report with images in PACS. The patient tolerated the procedure well without incident or complication and is in stable condition. * Interval H&P Note - Fabiana Renee APRN, DNP - 07/25/2025 10:30 AM EDT Patient presents for paracentesis and thoracentesis. H&P personally reviewed, no interval change. Source Note - Micheal Glasgow APRN, DNP [...] - Any questions with scheduling please call [phone] - Please place orders for desired fluid studies to be sent for analysis prior to procedure Thank you for allowing us to participate in the care of this patient. Micheal Glasgow, HEAD CHEF, DNP Interventional Radiology [phone] [1] Past Medical History: Diagnosis Date ADHD (attention deficit hyperactivity disorder) Allergic Anxiety disorder, unspecified Anxiety Bleeding gums Blood in urine Cataract Chronic kidney disease Cirrhosis (CMS/HCC) Colon cancer screening 09/20/2019 Added automatically from request for surgery [id number] Coronary artery disease Depression 1995 Diabetes mellitus [...] 1979 BLADDER SURGERY N/A Bladder surgery from [facility] BREAST BIOPSY 2011 BREAST SURGERY 2010 BUNIONECTOMY Right CATARACT EXTRACTION Bilateral 2016 CHOLECYSTECTOMY 1979 ESOPHAGOGASTRODUODENOSCOPY HYSTERECTOMY N/A Hysterectomy from [facility] KNEE SURGERY Bilateral ORAL SURGERY N/A Oral surgery from [facility] OTHER SURGICAL HISTORY 2015 ROOT CANAL WISDOM TOOTH EXTRACTION [3] Social History Tobacco Use Smoking status: Never Passive exposure: Never Smokeless tobacco: Never Vaping Use Vaping status: Never Used Substance Use Topics Alcohol use: Not Currently Drug use: Never [4] No Known Allergies [5] Current Facility-Administered Medications: albumin human 25 % infusion 12.5 g, 12.5 g, Intravenous, q15 min PRN, Marianna Gordon N, HEAD CHEF albumin human 25 % infusion 87.5 g, [...] Daily, Blayne Zimmer, , 1,000 Units at 07/03/25934 ciprofloxacin (Cipro) tablet 500 mg, 500 mg, Oral, Daily, Blayne Zimmer, , 500 mg at 07/03/25934 glucose (Glutose) 40 [...] TID, Blayne Zimmer, , 20 g at 07/03/25933 magnesium oxide (Mag-Ox) tablet 400 mg, 400 mg, Oral, Daily, Blayne Zimmer DO, 400 mg at midodrine (Proamatine) tablet 15 mg, 15 mg, Oral, TID, Dayne Medel, DO, 15 mg at 07/03/25934 rifAXIMin (Xifaxan) tablet 550 mg, 550 mg, Oral, BID, Blayne Zimmer, DO, 550 mg at 07/03/25 09 [COMPLETED] Insert peripheral IV, , , [...] Description 08/20/2025 9:30 AM EDT Clinical Support [facility] [address] [facility] [address] [place] [address] 08/20/2025 10:30 AM EDT Social Work [facility] [address] [place] [address] [place] [address] 08/20/2025 11:00 AM EDT Office Visit [facility] [address] [facility] [address] [place] [address] Jude Duque MD [address] [facility] [address] [place] [address] 08/22/2025 11:15 AM EDT Appointment [facility] Interventional Radiology [address] [place] [address] 08/22/2025 12:15 PM EDT Appointment [facility] Interventional Radiology [address] [place] [address] 08/26/2025 1:00 PM EDT [facility] [address] [place] [address] Miranda Hobson, HEAD CHEF [address] [place] [address] 08/29/2025 10:00 AM EDT Appointment [facility] Interventional Radiology [address] [place] [address] 08/29/2025 11:00 AM EDT Appointment [facility] Interventional Radiology [address] [place] [address] 09/05/2025 10:00 AM EDT Appointment [facility] Interventional Radiology [address] [place] [address] 09/05/2025 11:00 AM EDT Appointment [facility] Interventional Radiology [address] [place] [address] documented as of this encounter Procedures Procedure Name Priority Date/Time Associated Diagnosis Comments POCT GLUCOSE METER UNSOLICITED RESULTS Routine 07/25/2025 2:23 PM EDT XR CHEST 1 VIEW Timed 07/25/2025 1:46 PM EDT US GUIDED ABDOMINAL PARACENTESIS Routine 07/25/2025 12:55 PM EDT Other ascites US GUIDED THORACENTESIS Routine 07/25/20 12:55 PM EDT Shortness of breath Pleural effusion BODY FLUID CELL COUNT W/ MANUAL DIFFERENTIAL Routine 07/25/2025 11:52 AM EDT BODY FLUID, CYTOSPIN, PATHOLOGIST INTERPRETATION Routine 07/25/2025 11:52 AM EDT TOTAL PROTEIN, PERITONEAL FLUID Routine 07/25/2025 11:52 AM EDT documented in this encounter Results * (ABNORMAL) POCT glucose meter (07/25/2025 2:23 PM EDT) POCT Glucose 137(H) 74 - 99 mg/dL 07/25/2025 2:24 PM EDT [facility] Comment:Accuracy of [...] to the main labortory for testing. Comment 07/25/2025 2:24 PM EDT [facility] Wood Patternmaker ID Kandice Silva 07/25/20 2:24 PM EDT [facility] Device ID [id number] 07/25/2025 2:24 PM EDT [facility] Specimen Type POC Capillary 07/25/2025 2:24 PM EDT [facility] Blood Capillary blood specimen / Unknown 07/25/2025 2:23 PM EDT 07/25/2025 2:24 PM EDT Kandice Silva ELECTRICAL INSTALLATION INSPECTOR POINT OF CARE TE ST DOCKED DEVICE UNSOLICITED RESULTS Final Result [facility] [address] [place] [address] * XR Chest 1 View (07/25/2025 1:46 PM EDT) Anatomical Region Laterality Modality Chest Digital Radiogra phy Impressions 07/25/2025 2:18 PM EDT Interval decrease in lung volumes which may be due to differences in patient positioning. Otherwise unremarkable exam. CRITICAL RESULT: No. COMMUNICATION: Per this written report. By electronically signing this report, I, the attending physician, attest that I have personally reviewed the images/data for the above examination(s) and agree with the final edited report. Drafted by Donte Mckenna MD on 07/25/2025 2:09 PM Final report signed by Darryn Santana MD on 07/25/2025 2:18 PM Narrative 07/25/2025 2:18 PM EDT CLINICAL INDICATION: right TECHNIQUE: XR CHEST 1 VIEW COMPARISON: Chest x-ray 07/18/2025. FINDINGS: Interval decrease in lung volumes which may due to differences in patient positioning. Stable appearance of the cardiac and mediastinal silhouettes. No consolidation, pleural effusion, or pneumothorax. Lordotic positioning. Procedure Note Darryn Santana MD - 07/25/2025 CLINICAL INDICATION: right TECHNIQUE: XR CHEST 1 VIEW COMPARISON: Chest x-ray 07/18/2025. FINDINGS: Interval decrease in lung volumes which may due to differences in patientpositioning. Stable appearance of the cardiac and mediastinal silhouettes.No consolidation, pleural effusion, or pneumothorax. Lordoticpositioning. IMPRESSION: Interval decrease in lung volumes which may be due to differences inpatient positioning. Otherwise unremarkable exam. CRITICAL RESULT: No. COMMUNICATION: Per this written report. By electronically signing this report, I, the attending physician, attestthat I have personally reviewed the images/data for the aboveexamination(s) and agree with the final edited report. Drafted by Donte Mckenna MD on 07/25/2025 2:09 PM Final report signed by Darryn Santana MD on 07/25/2025 2:18 PM us Wily Faith MD IMG XR PROCEDURES Final Resul t * US Guided Abdominal Paracentesis (07/25/2025 12:55 PM EDT) Anatomical Region Laterality Modality Abdomen Ultrasound Impressions 07/26/2025 8:51 AM EDT Technically successful US-guided paracentesis. A total of 2.7 liters of clear yellow fluid was removed. A sample of the fluid was sent for laboratory analysis. CRITICAL RESULT: No. COMMUNICATION: Per this written report. Preliminary report signed by Maria Dolores Ontiveros APRN on 07/25/2025 3:49 PM By electronically signing this report, I, the attending physician, attest that I was not present for the procedure(s) but agree with the final edited report. Drafted by Maria Dolores Ontiveros APRN on 07/25/2025 3:38 PM Final report signed by Sam Turcios MD on 07/26/2025 8:51 AM Narrative 07/26/2025 8:51 AM EDT CLINICAL INDICATION: Gabi Zimmer is a 64 y.o. 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 TECHNIQUE: [place] Weapon System Operator: Fabiana Renee Secondary Wood Patternmaker: Maria Dolores Ontiveros APRN. Rad Dose: NA Medications: Continuous physiologic monitoring provided by a qualified healthcare professional. Administered: 1% Lidocaine with sodium bicarbonate SQ. Antibiotics: NA Time out: 1140 Procedure: After discussion of risks and benefits, [...] permanent storage in PACS. A total of 2.7 liters of clear yellow fluid was removed. The centesis catheter was removed and occlusive dressing applied. The patient tolerated the procedure well. The patient left the IR suite in stable condition. COMPARISON: None. FINDINGS: Moderate volume ascites. COMPLICATION: No. Procedure Note Sam Turcios MD - 07/26/2025 CLINICAL INDICATION: Gabi Zimmer is a 64 y.o. 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 TECHNIQUE: [place] Weapon System Operator: Fabiana Renee Secondary Wood Patternmaker: Maria Dolores Ontiveros APRN. Rad Dose: NA Medications: Continuous physiologic monitoring provided by a qualifiedhealthcare professional. Administered: 1% Lidocaine with sodiumbicarbonate SQ. Antibiotics: NA Time out: 1140 Procedure: After discussion of risks and benefits, [...] time US guidance, a 5 Fr skater-centesis catheterwas advanced into the ascites. [facility]. A total of 2.7 liters of clear yellow fluid was removed.The centesis catheter was removed and occlusive dressing applied. The patient tolerated the procedure well. The patient left the IR suitein stable condition. COMPARISON: None. FINDINGS: Moderate volume ascites. COMPLICATION: No. IMPRESSION: Technically successful US-guided paracentesis. A total of 2.7 liters of clear yellow fluid was removed. A sample of the fluid was sent for laboratory analysis. CRITICAL RESULT: No. COMMUNICATION: Per this written report. Preliminary report signed by Maria Dolores Ontiveros APRN on 07/25/2025 3:49 PM By electronically signing this report, I, the attending physician, attestthat I was not present for the procedure(s) but agree with the finaledited report. Drafted by Maria Dolores Ontiveros APRN on 07/25/2025 3:38 PM Final report signed by Sam Turcios MD on 07/26/2025 8:51 AM us Marianna Dixon Gordon APRN IMG US PROCEDURES Final Resu lt * US Guided Thoracentesis (07/25/2025 12:55 PM EDT) Anatomical Region Laterality Modality Chest Ultrasound Impressions 07/26/2025 8:50 AM EDT Technically successful ultrasound guided thoracentesis. A total of 1.5 liters of cloudy dark yellow fluid was removed. A sample of the fluid was sent for laboratory analysis. CRITICAL RESULT: No. COMMUNICATION: Per this written report. Preliminary report signed by Maria Dolores Ontiveros APRN on 07/25/2025 2:22 PM By electronically signing this report, I, the attending physician, attest that I was not present for the procedure(s) but agree with the final edited report. Drafted by Maria Dolores Ontiveros APRN on 07/25/2025 1:36 PM Final report signed by Sam Turcios MD on 07/26/2025 8:50 AM Narrative 07/26/2025 8:50 AM EDT CLINICAL INDICATION: Gabi Zimmer is a 64 y.o. 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 TECHNIQUE: [place] Weapon System Operator: Maria Dolores Ontiveros APRN Secondary Wood Patternmaker: None. Rad Dose: NA Medications: Continuous physiologic monitoring provided by a qualified healthcare professional. Administered: 1% Lidocaine with sodium bicarbonate SQ. Antibiotics: NA Time out: 1228 Procedure: After discussion of risks and benefits, [...] PACS. A total of 1.5 liters of cloudy dark yellow fluid was removed. The needle was removed and occlusive dressing applied. The patient tolerated the procedure well. The patient left the IR suite in stable condition. COMPARISON: None. FINDINGS: Moderate right pleural fluid. COMPLICATION: No. Procedure Note Sam Turcios MD - 07/26/2025 CLINICAL INDICATION: Gabi Zimmer is a 64 y.o. 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 TECHNIQUE: [place] Weapon System Operator: Maria Dolores Ontiveros APRN Secondary Wood Patternmaker: None. Rad Dose: NA Medications: Continuous physiologic monitoring provided by a qualifiedhealthcare professional. Administered: 1% Lidocaine with sodiumbicarbonate SQ. Antibiotics: NA Time out: 1228 Procedure: After discussion of risks and benefits, [...] to permanentstorage in PACS. A total of 1.5 liters of cloudy dark yellow fluid wasremoved. The needle was removed and occlusive dressing applied. The patient tolerated the procedure well. The patient left the IR suitein stable condition. COMPARISON: None. FINDINGS: Moderate right pleural fluid. COMPLICATION: No. IMPRESSION: Technically successful ultrasound guided thoracentesis. A total of 1.5 liters of cloudy dark yellow fluid was removed. A sample of the fluid was sent for laboratory analysis. CRITICAL RESULT: No. COMMUNICATION: Per this written report. Preliminary report signed by Maria Dolores Ontiveros APRN on 07/25/2025 2:22 PM By electronically signing this report, I, the attending physician, attestthat I was not present for the procedure(s) but agree with the finaledited report. Drafted by Maria Dolores Ontiveros APRN on 07/25/2025 1:36 PM Final report signed by Sam Turcios MD on 07/26/2025 8:50 AM us Marianna Gordon APRN IMG US PROCEDURES Final Resu lt * Body fluid, cytospin, pathologist interpretation (07/25/2025 11:52 AM EDT) Specimen Type Body Fluid LAB HEMATOLOGY METHOD 07/26/2025 9:43 AM EDT [facility] Specimen Source, Body Fluid Peritoneal Fluid LAB HEMATOLOGY METHOD 07/26/2025 9:43 AM EDT [facility] Clinical Diagnosis, Body Fluid Ascites LAB HEMATOLOGY METHOD 07/26/2025 9:43 AM EDT [facility] Interpretation , Body Fluid No evidence of malignancy. Predominantly chronic inflammatory cells and reactive mesothelial cells. Light blood. 07/26/2025 9:43 AM EDT [facility] Pathologist Signature, Body Fluid 07/26/2025 9:43 AM EDT [facility] Comment:Reviewed by: Onur Roque MD LAB CP ASR DISCLAIMER No 07/26/2025 9:43 AM EDT [facility] Body Fluid Peritoneal fluid / Unknown Non-blood Collection / Unknown 07/25/2025 11:52 AM EDT 07/25/2025 2:26 PM EDT us Marianna N Cheeks HEAD CHEF LAB BODY FLUIDS AND STOOLS O RDERABLES Final Result [facility] [address] [place] [address] * Protein - Ascites (07/25/2025 11:52 AM EDT) Total Protein, Fluid 0.9 g/dL 07/25/2025 5:00 PM EDT [facility] Ascites Peritoneal cavity structure / Unknown 07/25/2025 11:52 AM EDT 07/25/2025 2:26 PM EDT Narrative [facility] - 07/25/2025 5:00 PM EDT This test was developed and its performance characteristics determined by [facility]. The U.S. Food and Drug Administration has not approved or cleared this test. However, FDA clearance or approval is not currently required for clinical use. The results are not intended to be used as the sole means for clinical diagnosis or patient management decisions. us Marianna N Cheeks HEAD CHEF LAB BODY FLUIDS AND STOOLS O RDERABLES Final Result [facility] [address] [place] [address] * (ABNORMAL) Body Fluid Cell Count With Diff - Ascites (07/25/2025 11:52 AM EDT) Color, Body fluid [place] LAB HEMATOLOGY METHOD 07/25/2025 4:56 PM EDT [facility] Appearance, Body fluid Cloudy(A) LAB HEMATOLOGY METHOD 07/25/2025 4:56 PM EDT [facility] Volume, Body fluid 30.0 cc LAB HEMATOLOGY METHOD 07/25/2025 4:56 PM EDT [facility] Fluid Container Specimen received in miscellaneous container LAB HEMATOLOGY METHOD 07/25/2025 4:56 PM EDT [facility] Red Blood Cell Count, Body fluid 4,000 uL LAB HEMATOLOGY METHOD 07/25/2025 4:56 PM EDT [facility] Total Nucleated Cell Count, Body fluid 158 uL LAB HEMATOLOGY METHOD 07/25/2025 4:56 PM EDT [facility] Neutrophils %, Body fluid 11 % LAB HEMATOLOGY METHOD 07/25/2025 4:56 PM EDT [facility] Lymphocytes %, Body fluid 54 % LAB HEMATOLOGY METHOD 07/25/2025 4:56 PM EDT [facility] Monocytes/Macr ophages %, Body fluid 27 % LAB HEMATOLOGY METHOD 07/25/2025 4:56 PM EDT [facility] Eosinophils %, Body fluid 0 % LAB HEMATOLOGY METHOD 07/25/2025 4:56 PM EDT [facility] Lining/Mes[place] lial Cells %, Body fluid 8 % LAB HEMATOLOGY METHOD 07/25/2025 4:56 PM EDT [facility] Neutrophils Absolute (PMN), Body fluid 17 uL LAB HEMATOLOGY METHOD 07/25/2025 4:56 PM EDT [facility] Lymphocytes Absolute, Body fluid 85 uL LAB HEMATOLOGY METHOD 07/25/2025 4:56 PM EDT [facility] Monocytes/Macr ophages Absolute, Body fluid 43 uL LAB HEMATOLOGY METHOD 07/25/2025 4:56 PM EDT [facility] Eosinophils Absolute, Body fluid 0 uL LAB HEMATOLOGY METHOD 07/25/2025 4:56 PM EDT [facility] Basophils Absolute, Body fluid 0 uL LAB HEMATOLOGY METHOD 07/25/2025 4:56 PM EDT [facility] Lining/Mesothe lial Cells Absolute, Body fluid 13 uL LAB HEMATOLOGY METHOD 07/25/2025 4:56 PM EDT [facility] Basophils %, Body fluid 0 % LAB HEMATOLOGY METHOD 07/25/2025 4:56 PM EDT [facility] Body Fluid Peritoneal fluid / Unknown Non-blood Collection / Unknown 07/25/2025 11:52 AM EDT 07/25/2025 2:26 PM EDT us Marianna N Cheeks HEAD CHEF LAB BODY FLUIDS AND STOOLS ORDERABLES NO SPECIMEN TYPE/SOURCE Final Result [facility] [facility] [address] [place] [address] documented in this encounter Visit Diagnoses Diagnosis Pleural effusion associated with hepatic disorder- Primary Other specified forms of effusion, except tuberculous Shortness of breath Pleural effusion Unspecified pleural effusion Other ascites documented in this encounter Administered Medications Inactive Administered Medications - up to 3 most recent administrations Medication Order MAR Action Action Date Dose Rate Site albumin human 25 % infusion 37.5 g 37.5 g, Intravenous, Once as needed, 1 dose, Starting on Sarahi 07/25/25 at 0900, Until Sarahi 07/25/25 at 1134, Routine, Holding - Preprocedure, For 5-6.9 L drained New Bag 07/25/2025 11:34 AM EDT 37.5 g lidocaine 0.9% in sodium bicarbonate (buffered lidocaine) solution solution As needed, Starting on Sarahi 07/25/25 at 1143, Until Sarahi 07/25/25 at 1143, Routine, Intraprocedure Given 07/25/2025 11:43 AM EDT 10 mL documented in this encounter Additional Health Concerns Assessment Noted Time PHQ-9 Depression Total Score: 6 06/11/20 25 10:59 AM EDT A fall risk assessment has been complete d for the patient 06/25/2025 12:59 PM EDT A Body Mass Index follow-up plan has been documented for the patient 07/25/2025 2:15 PM EDT documented as of this encounter Care Teams Counter Installer Relationship Specialty Start Date End Date Alvarez Zimmer MD [address] [place] [address] PCP - General Family Medicine 12/07/24 Lea Fernando [address] [facility] [address] [place] [id number] Shift Supervisor Melting Endocrinology 08/29/24 Rachel Ray APRN [address] [place] [address] Nurse Practitioner Gastroenterology 09/24/24 Tamera Isabel LPN VALUE-BASED TRANSFORMATION PROGRAM Licensed Practical Nurse 05/29/25 Monique Tapia LPN [employer] [place] [address] TCM Nurse 07/10/25 08/09/25 documented as of this encounter
--- OUTSIDE RECORDS SUMMARY | 2025-07-25 13:20 | XMS_ITS | Encounter Summary ---
Author Organization [facility] Address [address] [place] [address] Care Team Providers Care Cellar Packer Name Role Phone Lea Fernando Unavailable [phone] Rachel Ray BLOCK BREAKER Unavailable [phone] Alvarez Zimmer MD Primary Care Provider Tamera Isabel EXCHANGE MECHANIC Unavailable Unavailabl Monique Garay EXCHANGE MECHANIC Unavailable Unavailable Encounter Details Date Type Department Care Team (Latest Contact Info) Description 07/25/2025 1:20 PM EDT - 07/25/2025 11:59 PM EDT Hospital Encounter [facility] Radiology [address] [place] [address] Discharge Disposition: Home or Self Care Social [...] you attend [facility] or mormon services? Patient unable to answer 01/10/2025 Do you belong to any clubs o r organizations such as jew groups, unions, [employer] or athletic groups, or school groups? Patient [...] often do you attend chur ch or mormon services? Never 05/29/2025 Do you belong to [...] more drinks on one occasion? Never 06/25/2025 [facility] - Occupational Stress Questionnaire Answer [...] drink first t kennedy in the morning (EYE-EXERCISE PHYSIOLOGY PROFESSOR) to steady your nerves or to get rid of a hangover? 0 06/25/2025 CAGE Questionnaire Score 0 025 Utilities Answer Date Recorded In the past 12 months has th e [employer], gas, oil, or water [employer] threatened to shut off services in your [...] 1 03/01/2025 ergocalciferol (Vitamin D-2) 1.25 MG (10652 UT) capsuleIndication s:Vitamin D deficiency Take 1 [...] Description 08/20/2025 9:30 AM EDT Clinical Support [facility] [place] [address] [place] [address] 08/20/2025 10:30 AM EDT Social Work [facility] [place] [address] [place] [address] [place] [address] 08/20/2025 11:00 AM EDT Office Visit [facility] [place] [address] [place] [address] Jude Duque MD [address] [place] [address] 08/22/2025 11:15 AM EDT Appointment [facility] Interventional Radiology [address] [place] [address] 08/22/2025 12:15 PM EDT Appointment [facility] Interventional Radiology [address] [place] [address] 08/26/2025 1:00 PM EDT Office Visit [facility] Endocrinology [address] [place] [address] Miranda Hobson P, BLOCK BREAKER [address] [place] [address] 08/29/2025 10:00 AM EDT Appointment [facility] Interventional Radiology [address] [place] [address] 08/29/2025 11:00 AM EDT Appointment [facility] Inter[facility] Radiology [address] [place] [address] 09/05/2025 10:00 AM EDT Appointment [facility] Inter[facility] Radiology [address] [place] [address] 09/05/2025 11:00 AM EDT Appointment [facility] Interventional Radiology [address] [place] [address] documented as of this encounter Procedures Procedure [...] documented as of this encounter Care Teams Cellar Packer Relationship Specialty Start Date End Date Alvarez Zimmer MD [address] [facility] [place] [address] PCP - General Family Medicine 12/07/24 Lea Fernando [address] [place] [phone] Medical Practice Manager Endocrinology 08/29/24 Rachel Ray APRN [address] [place] [address] Nurse Practitioner Gastroenterology 09/24/24 Tamera Isabel LPN VALUE-BASED TRANSFORMATION PROGRAM Licensed Practical Nurse 05/29/25 Monique Tapia LPN VALUE-BASED [place] [address] TCM Nurse 07/10/25 08/09/25 documented as of this encounter
--- OUTSIDE RECORDS SUMMARY | 2025-08-01 08:36 | XMS_ITS | Encounter Summary ---
Author Organization [facility] Address [address] [place] [address] Care Team Providers Care External Relations Manager Name Role Phone Lea Fernando Unavailable [phone] Rachel Ray APRN Unavailable [phone] Alvarez Zimmer MD Primary Care Provider [phone] Tamera Isabel PERSONNEL RESEARCH SCIENTIST Unavailable Unavailabl Monique Garay PERSONNEL RESEARCH SCIENTIST Unavailable Unavailable Reason for Referral * Clinic-Administered Medication (Routine) - Closed Specialty Diagnoses / Procedures Referred By Eder t Referred To Contact Diagnoses Other ascites Procedures [place] ABDOM PARACENTESIS DX/THER W IMAGING GUIDANCE Fabiana Renee APRN, DNP [address] [place] [address] Phone: tel: fax: [facility] [address] [place] [address] Phone: tel: fax: Referral ID Status Reason Start Date Expiration Date Visits Re quested Visits Authorized [id number] Closed 08/01/2025 01/31/2027 1 1 * Imaging (Routine) - Closed Specialty Diagnoses / Procedures Referred By Contac t Referred To Contact Radiology Diagnoses Other ascites Procedures US Guided Abdominal Paracentesis Marianna Gordon APRN [address] [place] [address] Phone: tel: fax: Referral ID Status Reason Start Date Expiration Date Visits Re quested Visits Authorized [id number] Closed 07/25/2025 01/24/2027 1 1 Reason for Visit * Imaging (Routine) - Closed Specialty Diagnoses / Procedures Referred By Eder zhu Referred To Contact Radiology Diagnoses Other ascites Procedures US Guided Abdominal Paracentesis Marianna Gordon APRN [address] [place] [address] Phone: tel: fax: Referral ID Status Reason Start Date Expiration Date Visits Re quested Visits Authorized [id number] Closed 07/25/2025 01/24/2027 1 1 Encounter Details Date Type Department Care Team (Late st Contact Info) Description 08/01/2025 8:36 AM EDT - 08/01/2025 12:47 PM EDT Hospital Encounter [facility] Interventional Radiology [address] [place] [address] Pretty Enriquez RN [facility]-VASCULAR & INTERVENTIONAL RADIOLOGY Other ascites [...] week 01/10/2025 How often do you attend [facility] or [facility] services? Patient unable to answer [...] often do you attend [facility] or lutheran services? Never 05/29/2025 Do you [...] drinks on one occasion? Never 06/[facility]/2025 [facility] Occupational Stress [...] drink first t kennedy in the morning (EYE-COATING OPERATOR) to steady your nerves or to get rid of a hangover? 0 06/25/2025 CAGE Questionnaire Score 0 025 Utilities Answer Date Recorded In the past 12 months has th e [employer], gas, oil, or water company threatened [...] Sign Reading Time Taken Comments Blood Pressure 104/66 08/01/2025 12:00 PM EDT Pulse 73 08/01/2025 12:00 PM EDT Temperature 36.8 C (98.2 F) 08/01/2025 9:02 AM EDT Respiratory Rate 17 08/01/2025 12:00 PM EDT Oxygen Saturation 95% 08/01/2025 12:00 PM EDT Inhaled Oxygen Concentration - - Weight 85.3 kg (188 lb 0.8 oz) 08/01/2025 9:02 A M EDT Height 165.1 cm (5' 5 ) 08/01/2025 9:02 AM EDT Body Mass Index 31.29 08/01/2025 9:02 AM EDT documented in this encounter Medications [...] 1 03/01/2025 ergocalciferol (Vitamin D-2) 1.25 MG (91973 UT) capsuleIndication s:Vitamin D deficiency Take 1 [...] as of this encounter Miscellaneous Notes * Pretty Meier RN - 08/01/2025 11:39 AM EDT Images from the original note were not included. [id number] Discharge Instructions for Thoracentesis Thoracentesis is a [...] blood. Last Reviewed Date: 2025 00:00:00 ?? [id number] [employer]. All rights reserved. This information is not intended as a substitute for professional medical care. Always follow your healthcare professional's instructions. * John ZendejasTHEO Zoe, Pretty Rivera RN - 08/01/2025 11:39 AM EDT Images from the original note were not included. [id number] Paracentesis Your healthcare provider recommends that you have paracentesis. This is a procedure to remove extrafluid from your belly (abdomen). A needle is used to drain the fluid. A small sample of fluid may be taken and tested for problems. If the fluid buildup is causing discomfort or pain, all of the fluid may be drained. To do this, a tube is attached to the needle. The fluid is drained into a container that sits outside of the body. If symptoms are severe, paracentesis may be done as an emergency procedure. Otherwise, it will be scheduled ahead of time. Read on to learn more about paracentesis andhow it works. Understanding ascites Many of the body?s organs, including the liver and intestines, are inside the belly. The organs arecovered in a thin membrane called the peritoneum . The peritoneum has 2 layers. It makes a fluid that allows the layers to glide smoothly past each other. If this fluid builds up in the belly, the condition is called ascites . Ascites causes pain and discomfort. It can also make it hard to breathe.Fluid can build up for a number of reasons. These include chronic liver disease (cirrhosis), heart or kidney failure, and cancer. Your healthcare provider can tell you more about the cause of your ascites. How paracentesis works The goal of paracentesis may be to help diagnose the cause of the excess fluid. Or the goal may be to drain excess fluid from the abdomen. In some cases, fluid returns. And the procedure needs to be repeated. Before the procedure ? Before the procedure, you will be asked to sign an informed consent. This form states that you understand the risks and benefits of the paracentesis. It also states any questions you have were answered. Be certain to ask all of your questions before you sign. ? Tell your healthcare provider about any medicines you are taking. This includes all prescription medicines, aehh-nbw-rehbbph medicines, street drugs, herbs, vitamins, and other supplements. ? Tell your provider about any allergies you have. ? Before the procedure begins, you?ll be asked to empty your bladder. This helps prevent injury to the bladder during the procedure. If needed, a thin tube (Black catheter) may be placed into your bladder to drain urine during the procedure. This tube is removed after the procedure. ? An IV (intravenous) line may be put into a vein in your arm or hand. This line supplies fluids and medicines. During the procedure ? You are awake during the procedure. ? An imaging method called ultrasound may be used to guide the procedure. It shows live images of the inside of your belly on a video screen. This helps the provider find the site of the excess fluidinside your belly and decide where to insert the needle. ? A numbing medicine (local anesthesia) is injected into your belly where the needle will be inserted. ? Once the skin is numb, the healthcare provider carefully inserts the needle into the belly. This causes the needle to fill with fluid. ? The needle may be removed with only a small sample of fluid. This sample is sent to a lab for testing. Getting a sample takes about 10 to 15 minutes. ? Or, a tube may be attached to the needle so that more of the excess fluid can be drained. The tube may be taped or stitched into place. This keeps it from pulling the needle out of your belly. ? How long it takes to drain all of the fluid varies for each person. In most cases, it takes about30 minutes. Your provider will let you know if the procedure is expected to take longer than usual. ? Once all of the fluid is drained, the needle and tube are removed. ? Pressure is put on the puncture site to stop any fluid leakage or bleeding. ? A small bandage is placed over the puncture site. Albumin may be given during or after the procedure to prevent low blood pressure or kidney problems. After the procedure You may be taken to a recovery room to rest after the procedure. If you are in pain, you will be given medicine as needed. You will likely be sent home 1 to 2 hours after the procedure is done. When you leave the hospital, have an adult family member or friend drive you home. If you are staying in the hospital, you will return to your hospital room. If your fluid is infected, you will be sent home on antibiotics. In some cases, the paracentesis may need to be repeated if the fluid returns. You may need to take medicines that increase urination (diuretics) to decrease fluid buildup. Because the tests on the fluid may take some time, be sure to follow up with your provider about your results. Risks and possible complications of paracentesis This procedure is considered safe. But like all procedures, it carries some risks. These include the following: ? Bleeding ? Infection ? Injury to structures in the belly ? Fast drop in blood pressure ? Kidney problems after the procedure When to get medical care Call your healthcare provider if you notice any of the following after the procedure: ? A fever of 100.4?? F ( 38.0??C) or higher, or as directed by your provider ? Chills ? Trouble breathing ? Pain that does not go away even after taking pain medicine ? Belly pain not caused by having the skin punctured ? Bleeding from the puncture site ? More than a small amount of fluid leakage from the puncture site ? Swollen belly ? Signs of infection at the puncture site. These include increased pain, redness, or swelling, as well as warmth or bad-smelling drainage. ? Blood in your urine ? Dizziness, lightheadedness, or fainting Last Reviewed Date: 2022 00:00:00 ?? [id number] [employer]. All rights reserved. This information is not intended as a substitute for professional medical care. Always follow your healthcare professional's instructions. * Post-Procedure Note - Fabiana Renee APRN, ANGELLA - 08/01/2025 10:00 AM EDT Vascular and Interventional Radiology Brief Postprocedure Note Performed by: Fabiana Renee APRN/ Zaheer Ortiz MD Machine Mover: Marianna Gordon APRN Pre-operative Diagnosis: right pleural effusion, ascites Post-operative Diagnosis: same Type of Anesthesia: Local Description of Findings: right pleural effusion, ascites Technical/Surgical Procedures Used: image guided right thoracentesis and paracentesis Specimen Obtained: Yes, cell count Complications: None Estimated Blood Loss: none Procedure Events Event Event Time See detailed result report with images in PACS. The patient tolerated the procedure well without incident or complication and is in stable condition. * Interval H&P Note - Fabiana Renee APRN, DNP - 08/01/2025 10:00 AM EDT Patient presents for paracentesis and [...] - Any questions with scheduling please call [phone] - Please place orders for desired fluid studies to be sent for analysis prior to procedure Thank you for allowing us to participate in the care of this patient. Micheal Glasgow, INNER TUBE TUBER MACHINE OPERATOR, DNP Interventional Radiology [phone] [1] Past Medical History: Diagnosis Date ADHD (attention deficit hyperactivity disorder) Allergic Anxiety disorder, unspecified Anxiety Bleeding gums Blood in urine Cataract Chronic kidney disease Cirrhosis (CMS/HCC) Colon cancer screening 09/20/2019 Added automatically from request for surgery [id number] Coronary artery disease Depression 1995 Diabetes mellitus [...] 1979 BLADDER SURGERY N/A Bladder surgery from [facility] BREAST BIOPSY 2011 BREAST SURGERY 2010 BUNIONECTOMY Right CATARACT EXTRACTION Bilateral 2016 CHOLECYSTECTOMY 1980 ESOPHAGOGASTRODUODENOSCOPY HYSTERECTOMY N/A Hysterectomy from [facility] KNEE SURGERY Bilateral ORAL SURGERY N/A Oral surgery from [facility] OTHER SURGICAL HISTORY 2015 ROOT CANAL WISDOM TOOTH EXTRACTION [3] Social History Tobacco Use Smoking status: Never Passive exposure: Never Smokeless tobacco: Never Vaping Use Vaping status: Never Used Substance Use Topics Alcohol use: Not Currently Drug use: Never [4] No Known Allergies [5] Current Facility-Administered Medications: albumin human 25 % infusion 12.5 g, 12.5 g, Intravenous, q15 min PRN, Marianna Gordon, INNER TUBE TUBER MACHINE OPERATOR albumin human 25 % infusion 87.5 g, 1 g/kg, Intravenous, q24h, Dayne Medel R, DO, 87.5 g at 07/02/25 1227 benzonatate (Tessalon) capsule 100 mg, 100 mg, Oral, TID PRN, Veronica Del Valle K, DO calcitriol (Rocaltrol) capsule 0.25 mcg, 0.25 mcg, Oral, Daily, Blayne Zimmer, DO, 0.25 mcg at 07/03/25 0935 calcium [...] mg, 500 mg, Oral, Daily, Blayne Zimmer, DO, 500 mg at 07/03/25 0935 glucose [...] 24 Units, 24 Units, Subcutaneous, Daily, Blayne Zimmer, , 24 Units at 07/03/25 0936 insulin lispro (Admelog) 100 units/mL injection - Correction - Resistant Dose, 0-10 Units, Subcutaneous, TID with meals, Blayne Zimmer S, DO, 2 Units at 07/02/25 1226 insulin [...] Description 08/20/2025 9:30 AM EDT Clinical Support [facility] [place] [address] [facility] [address] [place] [address] 08/20/2025 10:30 AM EDT Social Work [facility] [place] [address] [facility] [address] [place] [address] Deysi Ortega [place], [place] [id number] 08/20/2025 11:00 AM EDT Office Visit [facility] [place] [address] [place] [address] Jude Duque MD [address] [facility] [address] [place] [address] 08/22/2025 11:15 AM EDT Appointment [facility] Inter[facility] Radiology [address] [place] [id number] 08/22/2025 12:15 PM EDT Appointment [facility] Interventional Radiology [address] [place] [address] 08/26/2025 1:00 PM EDT Office Visit [facility] [address] [place] [phone] Miranda Hobson P, INNER TUBE TUBER MACHINE OPERATOR [address] [facility] [address] [place] [address] 08/29/2025 10:00 AM EDT Appointment [facility] Inter[facility] Radiology [address] [place] [address] 08/29/2025 11:00 AM EDT Appointment [facility] Inter[facility] Radiology [address] [place] [address] 09/05/2025 10:00 AM EDT Appointment [facility] Inter[facility] Radiology [address] [place] [address] 09/05/2025 11:00 AM EDT Appointment [facility] Interventional Radiology [address] [place] [address] documented as of this encounter Procedures Procedure Name Priority Date/Time Associated Diagnosis Comments XR CHEST 1 VIEW Routine 08/01/2025 1:17 PM EDT US GUIDED THORACENTESIS Routine 08/01/20 11:38 AM EDT Other ascites US GUIDED ABDOMINAL PARACENTESIS Routine 08/01/2025 11:38 AM EDT Other ascites BODY FLUID CELL COUNT W/ MANUAL DIFFERENTIAL Routine 08/01/2025 10:44 AM EDT BODY FLUID, CYTOSPIN, PATHOLOGIST INTERPRETATION Routine 08/01/2025 10:44 AM EDT TOTAL PROTEIN, PERITONEAL FLUID Routine 08/01/2025 10:44 AM EDT documented in this encounter Results * XR Chest 1 View (08/01/2025 1:17 PM EDT) Anatomical Region Laterality Modality Chest Digital Radiogra phy Impressions 08/01/2025 2:12 PM EDT Right lower lung opacity which may represent atelectasis. Trace left pleural effusion. CRITICAL RESULT: No. COMMUNICATION: Per this written report. By electronically signing this report, I, the attending physician, attest that I have personally reviewed the images/data for the above examination(s) and agree with the final edited report. Drafted by Donte Mckenna MD on 08/01/2025 1:19 PM Final report signed by Golden Jin MD on 08/01/2025 2:12 PM Narrative 08/01/2025 2:12 PM EDT CLINICAL INDICATION: post thoracentesis TECHNIQUE: XR CHEST 1 VIEW COMPARISON: Chest x-ray 07/25/2025. FINDINGS: Right lower lung opacity. Trace left pleural effusion. Similar appearance of the cardiac and mediastinal silhouettes. No pneumothorax. Procedure Note Golden Jin MD - 08/01/2025 CLINICAL INDICATION: post thoracentesis TECHNIQUE: XR CHEST 1 VIEW COMPARISON: Chest x-ray 07/25/2025. FINDINGS: Right lower lung opacity. Trace left pleural effusion. Similar appearanceof the cardiac and mediastinal silhouettes. No pneumothorax. IMPRESSION: Right lower lung opacity which may represent atelectasis. Trace left pleural effusion. CRITICAL RESULT: No. COMMUNICATION: Per this written report. By electronically signing this report, I, the attending physician, attestthat I have personally reviewed the images/data for the aboveexamination(s) and agree with the final edited report. Drafted by Donte Mckenna MD on 08/01/2025 1:19 PM Final report signed by Golden Jin MD on 08/01/2025 2:12 PM us Fabianaamrik Renee APRN, DNP IMG XR PROCEDURES Tari l Result * US Guided Abdominal Paracentesis (08/01/2025 11:38 AM EDT) Anatomical Region Laterality Modality Abdomen Ultrasound Impressions 08/01/2025 5:04 PM EDT Technically successful US-guided paracentesis. A total of 3.4 liters of clear yellow fluid was removed. A sample of the fluid was sent for laboratory analysis. CRITICAL RESULT: No. COMMUNICATION: Per this written report. Preliminary report signed by SOLANGE Omalley on 08/01/2025 3:55 PM By electronically signing this report, I, the attending physician, attest that I was not present for the procedure(s) but agree with the final edited report. Drafted by SOALNGE Omalley on 08/01/2025 3:49 PM Final report signed by Dina Rose MD on 08/01/2025 5:04 PM Narrative 08/01/2025 5:04 PM EDT CLINICAL INDICATION: Gabi Zimmer is [...] known to IR, undergoing outpatient paracentesis/thoracentesis weekly TECHNIQUE: Outside Installation Machinist: Noé BALDERAS, Marianna Gordon APRN Secondary Sign Language Translator: None. Rad Dose: NA Medications: Continuous physiologic monitoring provided by a qualified healthcare professional. Administered: 1% Lidocaine SQ. Antibiotics: NA Time out: 112 Procedure: After discussion of risks and benefits, [...] permanent storage in PACS. A total of 3.4 liters of clear yellow fluid was removed. The centesis catheter was removed and occlusive dressing applied. The patient tolerated the procedure well. The patient left the IR suite in stable condition. COMPARISON: None. FINDINGS: Moderate volume ascites. COMPLICATION: No. Procedure Note Dina Rose MD - 08/01/2025 CLINICAL INDICATION: Gabi Zimmer is a 64 y.o. 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 [facility] with concern for CARLOTTA and inability to care for self. Ms. Zimmer is well known to IR, undergoing outpatientparacentesis/thoracentesis weekly TECHNIQUE: Outside Installation Machinist: Noé BALDERAS, Marianna Gordon APRN Secondary Sign Language Translator: None. Rad Dose: NA Medications: Continuous physiologic monitoring provided by a qualifiedhealthcare professional. Administered: 1% Lidocaine SQ. Antibiotics: NA Time out: 1121 Procedure: After discussion of risks and benefits, [...] to permanentstorage in PACS. A total of 3.4 liters of clear yellow fluid was removed.The centesis catheter was removed and occlusive dressing applied. The patient tolerated the procedure well. The patient left the IR suitein stable condition. COMPARISON: None. FINDINGS: Moderate volume ascites. COMPLICATION: No. IMPRESSION: Technically successful US-guided paracentesis. A total of 3.4 liters of clear yellow fluid was removed. A sample of the fluid was sent for laboratory analysis. CRITICAL RESULT: No. COMMUNICATION: Per this written report. Preliminary report signed by SOLANGE Omalley on 08/01/2025 3:55 PM By electronically signing this report, I, the attending physician, attestthat I was not present for the procedure(s) but agree with the finaledited report. Drafted by SOLANGE Omalley on 08/01/2025 3:49 PM Final report signed by Dina Rose MD on 08/01/2025 5:04 PM us Marianna Gordon INNER TUBE TUBER MACHINE OPERATOR IMG US PROCEDURES Final Resu lt * Body fluid, cytospin, pathologist interpretation (08/01/2025 10:44 AM EDT) Specimen Type Body Fluid LAB HEMATOLOGY METHOD 08/02/2025 12:12 PM EDT [facility] Specimen Source, Body Fluid Peritoneal Fluid LAB HEMATOLOGY METHOD 08/02/2025 12:12 PM EDT [facility] Clinical Diagnosis, Body Fluid Ascites LAB HEMATOLOGY METHOD 08/02/2025 12:12 PM EDT [facility] Interpretation , Body Fluid No evidence of malignancy Predominantly chronic inflammatory cells Lymphocytosis Light blood A resident was involved in the service. I attest I examined the relevant preparations for the specimens and confirmed the diagnosis or interpretation. 08/02/2025 12:12 PM EDT [facility] Pathologist Signature, Body Fluid 08/02/2025 12:12 PM EDT [facility] Comment:Reviewed by: Kadie dobbs MD LAB CP ASR DISCLAIMER Yes 08/02/2025 12:12 PM EDT [facility] Body Fluid Peritoneal fluid / Unknown Non-blood Collection / Unknown 08/01/2025 10:44 AM EDT 08/01/2025 12:48 PM EDT Fabiana Renee APRN, DNP LAB BODY FLUIDS AND ST OOLS ORDERABLES Final Result Performing Organization Address [facility] Co de Phone Number [facility] [address] [place] [address] * Protein - Ascites (08/01/2025 10:44 AM EDT) Total Protein, Fluid 1 g/dL 08/01/2025 3:45 PM EDT [facility] Ascites Peritoneal cavity structure / Unknown 08/01/2025 10:44 AM EDT 08/01/2025 12:48 PM EDT Narrative [facility] - 08/01/2025 3:45 PM EDT This test was developed and its performance characteristics determined by [facility]. The U.S. Food and Drug Administration has not approved or cleared this test. However, FDA clearance or approval is not currently required for clinical use. The results are not intended to be used as the sole means for clinical diagnosis or patient management decisions. Fabiana Renee APRN, DNP LAB BODY FLUIDS AND ST OOLS ORDERABLES Final Result Performing Organization Address City/[facility] Co de Phone Number [facility] [address] [place] [address] * (ABNORMAL) Body Fluid Cell Count With Diff - Ascites (08/01/2025 10:44 AM EDT) Color, Body fluid [place] LAB HEMATOLOGY METHOD 08/01/2025 7:44 PM EDT [facility] Appearance, Body fluid Cloudy(A) LAB HEMATOLOGY METHOD 08/01/2025 7:44 PM EDT [facility] Volume, Body fluid 28.0 cc LAB HEMATOLOGY METHOD 08/01/2025 7:44 PM EDT [facility] Fluid Container Specimen received in miscellaneous container LAB HEMATOLOGY METHOD 08/01/2025 7:44 PM EDT [facility] Red Blood Cell Count, Body fluid 5,000 uL LAB HEMATOLOGY METHOD 08/01/2025 7:44 PM EDT [facility] Total Nucleated Cell Count, Body fluid 155 uL LAB HEMATOLOGY METHOD 08/01/2025 7:44 PM EDT [facility] Neutrophils %, Body fluid 2 % LAB HEMATOLOGY METHOD 08/01/2025 7:44 PM EDT [facility] Lymphocytes %, Body fluid 79 % LAB HEMATOLOGY METHOD 08/01/2025 7:44 PM EDT [facility] Monocytes/Macr ophages %, Body fluid 17 % LAB HEMATOLOGY METHOD 08/01/2025 7:44 PM EDT [facility] Eosinophils %, Body fluid 0 % LAB HEMATOLOGY METHOD 08/01/2025 7:44 PM EDT [facility] Lining/Mesothe lial Cells %, Body fluid 2 % LAB HEMATOLOGY METHOD 08/01/2025 7:44 PM EDT [facility] Neutrophils Absolute (PMN), Body fluid 3 uL LAB HEMATOLOGY METHOD 08/01/2025 7:44 PM EDT [facility] Lymphocytes Absolute, Body fluid 122 uL LAB HEMATOLOGY METHOD 08/01/2025 7:44 PM EDT [facility] Monocytes/Macr ophages Absolute, Body fluid 26 uL LAB HEMATOLOGY METHOD 08/01/2025 7:44 PM EDT [facility] Eosinophils Absolute, Body fluid 0 uL LAB HEMATOLOGY METHOD 08/01/2025 7:44 PM EDT [facility] Basophils Absolute, Body fluid 0 uL LAB HEMATOLOGY METHOD 08/01/2025 7:44 PM EDT [facility] Lining/Mesothe lial Cells Absolute, Body fluid 3 uL LAB HEMATOLOGY METHOD 08/01/2025 7:44 PM EDT [facility] Basophils %, Body fluid 0 % LAB HEMATOLOGY METHOD 08/01/2025 7:44 PM EDT [facility] Body Fluid Peritoneal fluid / Unknown Non-blood Collection / Unknown 08/01/2025 10:44 AM EDT 08/01/2025 12:48 PM EDT us Fabiana Harp Víctor INNER TUBE TUBER MACHINE OPERATOR, DNP LAB BODY FLUID S AND STOOLS ORDERABLES NO SPECIMEN TYPE/SOURCE Final Result [facility] [address] [place] [address] documented in this encounter Visit Diagnoses Diagnosis Other ascites documented in this encounter Administered Medications Inactive Administered Medications - up to 3 most recent administrations Medication Order MAR Action Action Date Dose Rate Site albumin human 25 % infusion 37.5 g 37.5 g, Intravenous, Once as needed, 1 dose, Starting on Sarahi 08/01/25 at 1005, Until Sarahi 08/01/25 at 1058, Routine, Intraprocedure, For 5-6.9 L drained New Bag 08/01/2025 10:58 AM EDT 37.5 g lidocaine (Xylocaine) 1 % injection Intradermal, As needed, Starting on Sarahi 08/01/25 at 1028, Until Sarahi 08/01/25 at 1125, Routine, Intraprocedure Given 08/01/2025 11:25 AM EDT 10 mL Given 08/01/2025 10:28 AM EDT 10 mL documented in this encounter Additional Health Concerns Assessment Noted Time PHQ-9 Depression Total Score: 6 06/11/20 25 10:59 AM EDT A fall risk assessment has been complete d for the patient 06/25/2025 12:59 PM EDT A Body Mass Index follow-up plan has been documented for the patient 08/01/2025 1:21 PM EDT documented as of this encounter Care Teams External Relations Manager Relationship Specialty Start Date End Date Alvarez Zimmer MD [facility] [place] [address] PCP - General Family Medicine 12/07/24 Lea Fernando [address] [place] [address] [address] [place] [address] Tick Sewer Endocrinology 08/29/24 Rachel Ray, ADRI [address] [facility] [address] [place] [address] Nurse Practitioner Gastroenterology 09/24/24 Tamera Isabel LPN VALUE-BASED TRANSFORMATION PROGRAM Licensed Practical Nurse 05/29/25 Monique Tapia LPN [employer] [address] TCM Nurse 07/10/25 08/09/25 documented as of this encounter
--- OUTSIDE RECORDS SUMMARY | 2025-08-01 12:48 | XMS_ITS | Encounter Summary ---
Author Organization [facility] Address [address] [place] [address] Care Team Providers Care Mess Attendant Crew Name Role Phone Lea Fernando Unavailable [phone] Rachel Ray SENIOR DATABASE PROGRAMMER Unavailable [phone] Alvarez Zimmer MD Primary Care Provider [phone] Tamera Isabel DIRECTOR CALL CENTER SALES Unavailable Unavailabl Monique Garay DIRECTOR CALL CENTER SALES Unavailable Unavailable Encounter Details Date Type Department Care Team (Latest Contact Info) Description 08/01/2025 12:48 PM EDT - 08/01/2025 11:59 PM EDT Hospital Encounter [facility] Radiology [address] [place] [address] Discharge Disposition: Home or Self Care Social [...] How often do you attend [facility] or temple services? Patient unable to answer 01/10/2025 Do you belong to any clubs o r organizations such as catholic groups, unions, [facility] or athletic groups, or school groups? Patient [...] you attend chur ch or temple services? Never 05/29/2025 Do you belong to [...] more drinks on one occasion? Never 06/25/2025 [facility] - Occupational Stress Questionnaire Answer Date [...] drink first t kennedy in the morning (EYE-ARCHERY EQUIPMENT HAY SORTER) to steady your nerves or to get rid of a hangover? 0 06/25/2025 CAGE Questionnaire Score 0 025 Utilities Answer Date Recorded In the past 12 months has th e [employer], gas, oil, or water [employer] threatened to shut off services in your [...] 1 03/01/2025 ergocalciferol (Vitamin D-2) 1.25 MG (83345 UT) capsuleIndication s:Vitamin D deficiency Take 1 [...] Description 08/20/2025 9:30 AM EDT Clinical Support [facility] [place] [address] [place] [address] 08/20/2025 10:30 AM EDT Social Work [facility] [place] [address] [place] [address] [place] [address] 08/20/2025 11:00 AM EDT Office Visit [facility] [place] [address] [place] [address] Jude Duque MD [address] [place] [address] 08/22/2025 11:15 AM EDT Appointment [facility] Inter[facility] Radiology [address] [place] [address] 08/22/2025 12:15 PM EDT Appointment [facility] Interventional Radiology [address] [place] [address] 08/26/2025 1:00 PM EDT Office Visit [facility] Endocrinology [address] [place] [address] Miranda Hobson P, SENIOR DATABASE PROGRAMMER [address] [place] [address] 08/29/2025 10:00 AM EDT Appointment [facility] Inter[facility] Radiology [address] [place] [address] 08/29/2025 11:00 AM EDT Appointment [facility] Inter[facility]iology [address] [place] [address] 09/05/2025 10:00 AM EDT Appointment [facility] Inter[facility]iology [address] [place] [address] 09/05/2025 11:00 AM EDT Appointment [facility] Inter[facility]iology [address] [place] [address] documented as of this encounter Procedures Procedure Name Priority Date/Time Associated Diagnosis Comments XR CHEST 1 VIEW Routine 08/01/2025 1:17 PM EDT documented in this encounter Results [...] Golden Jin MD on 08/01/2025 2:12 PM Fabiana Renee APRN, DNP IMG XR PROCEDURES Tari [...] documented as of this encounter Care Teams Mess Attendant Crew Relationship Specialty Start Date End Date Alvarez Zimmer MD [address] [place] [address] [place] [phone] PCP - General Family Medicine 12/07/24 Lea Fernando [address] [place] [address] Tactical Air Control Party Endocrinology 08/29/24 Rachel Ray APRN [address] [place] [address] Nurse Practitioner Gastroenterology 09/24/24 Tamera Isabel LPN VALUE-BASED TRANSFORMATION PROGRAM Licensed Practical Nurse 05/29/25 Monique Tapia LPN VALUE-BASED [place] [address] TCM Nurse 07/10/25 08/09/25 documented as of this encounter
--- OUTSIDE RECORDS SUMMARY | 2025-08-08 08:51 | XMS_ITS | Encounter Summary ---
Author Organization [facility] Address [address] [place] [address] Care Team Providers Care Blow Machine Tender Starch Spraying Name Role Phone Lea Fernando Unavailable [phone] Rachel Ray HOTEL SERVER Unavailable [phone] Alvarez Zimmer MD Primary Care Provider [phone] Tamera Isabel CONTACT REPRESENTATIVE Unavailable Unavailabl Monique Garay CONTACT REPRESENTATIVE Unavailable Unavailable Reason for Referral * Clinic-Administered Medication (Routine) - Closed Specialty Diagnoses / Procedures Referred By Contac t Referred To Contact Diagnoses Other ascites Procedures IL ABDOM PARACENTESIS DX/THER W IMAGING GUIDANCE Shaniqua Mccurdy APRN [address] [place] [address] Phone: tel: fax: [facility] [address] [place] [address] Phone: tel: fax: Referral ID Status Reason Start Date Expiration Date Visits Re quested Visits Authorized [id number] Closed 08/08/2025 02/07/2027 1 1 * Imaging (Routine) - Closed Specialty Diagnoses / Procedures Referred By Contac t Referred To Contact Radiology Diagnoses Other ascites Procedures US Guided Thoracentesis Marianna Gordon APRN [address] [place] [address] Phone: tel: fax: Referral ID Status Reason Start Date Expiration Date Visits Re quested Visits Authorized [id number] Closed 07/25/2025 01/24/2027 1 1 * Imaging (Routine) - Closed Specialty Diagnoses / Procedures Referred By Eder zhu Referred To Contact Radiology Diagnoses Other ascites Procedures US Guided Abdominal Paracentesis Marianna Gordon APRN [address] [place] [address] Phone: tel: fax: Referral ID Status Reason Start Date Expiration Date Visits Re quested Visits Authorized [id number] Closed 07/25/2025 01/24/2027 1 1 Reason for Visit * Imaging (Routine) - Closed Specialty Diagnoses / Procedures Referred By Eder zhu Referred To Contact Radiology Diagnoses Other ascites Procedures US Guided Abdominal Paracentesis Marianna Gordon APRN [address] [place] [address] Phone: tel: fax: Referral ID Status Reason Start Date Expiration Date Visits Re quested Visits Authorized [id number] Closed 07/25/2025 01/24/2027 1 1 Encounter Details Date Type Department Care Team (Late st Contact Info) Description 08/08/2025 8:51 AM EDT - 08/08/2025 2:26 PM EDT Hospital Encounter [facility] Interventional Radiology [address] [place] [address] Mariam Thomas, RN [facility]-VASCULAR & INTERVENTIONAL RADIOLOGY [...] you attend [facility] or [facility] services? Patient unable to [...] more drinks on one occasion? [facility] [...] drink first t kennedy in the morning (EYE-ALLIANCE MANAGER) to steady your nerves or to get rid of a hangover? 0 06/25/2025 CAGE Questionnaire Score 0 025 Utilities Answer Date Recorded In the past 12 months has th [employer], gas, oil, or water company threatened [...] call: Vascular and Interventional Radiology Clinic at [phone] Tuesday - Tuesday 8:00 AM to 4:30 PM After hours, weekends, and holidays please call [phone] and ask for the Interventional Radiology provider/Resident on-call Intervention Radiology Appointments: If you need to reschedule a procedure, please call our Schedulers at [phone], option 4. If you need to schedule or reschedule a clinic appointment, please call [phone]. [facility] Vascular and Interventional Radiology Clinic [facility] [address] [facility] [place] [address] documented in this encounter Medications at Time [...] 1 03/01/2025 ergocalciferol (Vitamin D-2) 1.25 MG (59332 UT) capsuleIndication s:Vitamin D deficiency Take 1 [...] EDT Pt received from intraprocedure RN to [place] #25; handoff report obtained; Pt placed on [...] is no recent study available for direct [id number] comparison. Assessment & Plan: Decompensated cirrhosis, MASH [...] the care of this patient. Shaniqua Mccurdy, HOTEL SERVER Interventional Radiology [phone] [1] Past Medical History: Diagnosis Date ADHD (attention deficit hyperactivity disorder) Allergic Anxiety disorder, unspecified Anxiety Bleeding gums Blood in urine Cataract Chronic kidney disease Cirrhosis (CMS/HCC) Colon cancer screening 09/20/2019 Added automatically from request for surgery [id number] Coronary artery disease Depression 1995 Diabetes mellitus [...] 1979 BLADDER SURGERY N/A Bladder surgery from [facility] BREAST BIOPSY 2011 BREAST SURGERY 2010 BUNIONECTOMY Right CATARACT EXTRACTION Bilateral 2016 CHOLECYSTECTOMY 1979 ESOPHAGOGASTRODUODENOSCOPY HYSTERECTOMY N/A Hysterectomy from [facility] KNEE SURGERY Bilateral ORAL SURGERY N/A Oral surgery from [facility] OTHER SURGICAL HISTORY 2015 ROOT CANAL WISDOM [...] Rfl: 1 ergocalciferol (Vitamin D-2) 1.25 MG (50484 UT) capsule, Take 1 capsule by mouth [...] from the original note were not included. [id number] Discharge Instructions for Thoracentesis Thoracentesis is a [...] blood. Last Reviewed Date: 2025 00:00:00 ?? 8663-2100 [employer]. All rights reserved. This information is not intended as a substitute for professional medical care. Always follow your healthcare professional's instructions. * John OnFHTHEO - Mariam [place] RN - 08/08/2025 10:24 AM EDT Images from the original note were not included. [id number] Discharge Instructions for Paracentesis Paracentesis is a [...] fainting. Last Reviewed Date: 2025 00:00:00 ?? 2212-1952 [employer]. All rights reserved. This information is not intended as a substitute for professional medical care. Always follow your healthcare professional's instructions. documented in this encounter Plan of Treatment Upcoming Encounters Date Type Department Care Team (Late st Contact Info) Description 08/20/2025 9:30 AM EDT Clinical Support [facility] [place] [address] [place] [address] 08/20/2025 10:30 AM EDT Social Work [facility] [address] [place] [phone] Deysi Ortega [place], [place] [id number] 08/20/2025 11:00 AM EDT Office Visit [facility] [address] [facility] [address] [place] [address] Jude Duque MD [address] [facility] [address] [place] [address] 08/22/2025 11:15 AM EDT Appointment [facility] Interventional Radiology [address] [place] [phone] 08/22/2025 12:15 PM EDT Appointment [facility] Interventional Radiology [address] [place] [address] 08/26/2025 1:00 PM EDT Office Visit [facility] [address] [place] [phone] Miranda Hobson P, HOTEL SERVER [address] [facility] [address] [place] [phone] 08/29/2025 10:00 AM EDT Appointment [facility] Interventional Radiology [address] [place] [address] 08/29/2025 11:00 AM EDT Appointment [facility] Inter[facility] Radiology [address] [place] [address] 09/05/2025 10:00 AM EDT Appointment [facility] Inter[facility] Radiology [address] [place] [address] 09/05/2025 11:00 AM EDT Appointment [facility] Interventional Radiology [address] [place] [address] documented as of this encounter Procedures Procedure [...] MD on 08/08/2025 3:10 PM Shaniqua Mccurdy HOTEL SERVER IMG XR PROCEDURES Final Resu lt * (ABNORMAL) POCT glucose meter (08/08/2025 1:42 PM EDT) POCT Glucose 294(H) 74 - 99 mg/dL 08/08/2025 1:44 PM EDT [email or web address] Comment:Accuracy of a glucos e [...] 08/08/2025 1:44 PM EDT [facility] Store Coordinator ID SulyPinesdaleMariam lundy Filipe 08/08/2025 1:44 PM EDT [email or web address] Device ID [id number] 08/08/2025 1:44 PM EDT [facility]ALTH[facility]ARE LAB Specimen Type POC Capillary 08/08/2025 1:44 PM EDT [facility] Blood Capillary blood specimen / Unknown 08/08/2025 1:42 PM EDT 08/08/2025 1:44 PM EDT us Mariam Thomas BELT AND LINK SHOP SUPERVISOR POINT OF CARE T EST DOCKED DEVICE UNSOLICITED RESULTS Final Result [facility] [address] [place] [address] * US Guided Thoracentesis (08/08/2025 12:19 PM [...] edited report. 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 TECHNIQUE: Face Worker: Shaniqua Mccurdy APRN Secondary Store Coordinator: None. Rad Dose: NA Medications: Continuous physiologic [...] decompensated cirrhosis with ascites and hepatichydrothorax. TECHNIQUE: Face Worker: Shaniqua Mccurdy APRN Secondary Store Coordinator: None. Rad Dose: NA Medications: Continuous physiologic [...] 08/08/2025 1:58 PM us Marianna Dixon Ochoaevelyn HOTEL SERVER IMG US PROCEDURES Final Resu lt * [...] edited report. 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 TECHNIQUE: Face Worker: Shaniqua Mccurdy APRN Secondary Store Coordinator: None. Rad Dose: NA Medications: Continuous physiologic [...] decompensated cirrhosiswith hepatic hydrothorax and ascites. TECHNIQUE: Face Worker: Shaniqua Mccurdy APRN Secondary Store Coordinator: Aparna. Rad Dose: NA Medications: Continuous physiologic [...] on 08/08/2025 1:52 PM us Marianna Gordon HOTEL SERVER IMG US PROCEDURES Final Resu lt * Body fluid, cytospin, pathologist interpretation (08/08/2025 11:32 AM EDT) Specimen Type Body Fluid LAB HEMATOLOGY METHOD 08/09/2025 5:55 PM EDT [facility] Specimen Source, Body Fluid Peritoneal Fluid LAB HEMATOLOGY METHOD 08/09/2025 5:55 PM EDT [facility] Clinical Diagnosis, Body Fluid Decompensated cirrhosis MASH, Ascites LAB HEMATOLOGY METHOD 08/09/2025 5:55 PM EDT [facility] Interpretation , Body Fluid No evidence of malignancy Chronic inflammatory cells Lymphocytosis Light blood A resident was involved in the service. I attest I examined the relevant preparations for the specimens and confirmed the diagnosis or interpretation. 08/09/2025 5:55 PM EDT [facility] Pathologist Signature, Body Fluid 08/09/2025 5:55 PM EDT [facility] Comment:Reviewed by: Kadie dobbs MD LAB CP ASR DISCLAIMER Yes 08/09/2025 5:55 PM EDT [facility] Body Fluid Peritoneal fluid / Unknown Non-blood Collection / Unknown 08/08/2025 11:32 AM EDT 08/08/2025 2:47 PM EDT us Shaniqua Mccurdy HOTEL SERVER LAB BODY FLUIDS AND STOOLS O RDERABLES Final Result [facility] [address] [place] [address] * Glucose - Ascites (08/08/2025 11:32 AM EDT) Glucose, Fluid 317 mg/dL 08/08/2025 3:30 PM EDT [facility] Peritoneal Fluid Peritoneal cavity structure / Unknown Non-blood Collection / Unknown 08/08/2025 11:32 AM EDT 08/08/2025 2:47 PM EDT Narrative [facility] - 08/08/2025 3:30 PM EDT [...] 3) Glucose < 50 mg/dL. Shaniqua Mccurdy HOTEL SERVER LAB BODY FLUIDS AND STOOLS O RDERABLES Final Result Performing Organization Address City/[facility]/ZIP Co de Phone Number [facility] [address] [place] [address] * Protein - Ascites (08/08/2025 11:32 AM EDT) Total Protein, Fluid 0.9 g/dL 08/08/2025 3:30 PM EDT [facility] Peritoneal Fluid Peritoneal cavity structure / Unknown Non-blood Collection / Unknown 08/08/2025 11:32 AM EDT 08/08/2025 2:47 PM EDT Narrative [facility] - 08/08/2025 3:30 PM EDT This test was developed and its performance characteristics determined by [facility]. The U.S. Food and Drug Administration has not approved or cleared this test. However, FDA clearance or approval is not currently required for clinical use. The results are not intended to be used as the sole means for clinical diagnosis or patient management decisions. Shaniqua Mccurdy HOTEL SERVER LAB BODY FLUIDS AND STOOLS O RDERABLES Final Result [facility] [address] [place] [address] * (ABNORMAL) Body Fluid Cell Count With Diff - Ascites (08/08/2025 11:32 AM EDT) Color, Body fluid Yellow LAB HEMATOLOGY METHOD 08/08/2025 4:39 PM EDT [facility] Appearance, Body fluid Cloudy(A) LAB HEMATOLOGY METHOD 08/08/2025 4:39 PM EDT [facility] Volume, Body fluid 8.0 cc LAB HEMATOLOGY METHOD 08/08/2025 4:39 PM EDT [facility] Fluid Container Tube 3 LAB HEMATOLOGY METHOD 08/08/2025 4:39 PM EDT [facility] Red Blood Cell Count, Body fluid 4,000 uL LAB HEMATOLOGY METHOD 08/08/2025 4:39 PM EDT [facility] Total Nucleated Cell Count, Body fluid 122 uL LAB HEMATOLOGY METHOD 08/08/2025 4:39 PM EDT [facility] Neutrophils %, Body fluid 2 % LAB HEMATOLOGY METHOD 08/08/2025 4:39 PM EDT [facility] Lymphocytes %, Body fluid 93 % LAB HEMATOLOGY METHOD 08/08/2025 4:39 PM EDT [facility] Monocytes/Macro phages %, Body fluid 5 % LAB HEMATOLOGY METHOD 08/08/2025 4:39 PM EDT [facility] Eosinophils %, Body fluid 0 % LAB HEMATOLOGY METHOD 08/08/2025 4:39 PM EDT [facility] Lining/Mesothel ial Cells %, Body fluid 0 % LAB HEMATOLOGY METHOD 08/08/2025 4:39 PM EDT [facility] Neutrophils Absolute (PMN), Body fluid 2 uL LAB HEMATOLOGY METHOD 08/08/2025 4:39 PM EDT [facility] Lymphocytes Absolute, Body fluid 113 uL LAB HEMATOLOGY METHOD 08/08/2025 4:39 PM EDT [facility] Monocytes/Macro phages Absolute, Body fluid 6 uL LAB HEMATOLOGY METHOD 08/08/2025 4:39 PM EDT [facility] Eosinophils Absolute, Body fluid 0 uL LAB HEMATOLOGY METHOD 08/08/2025 4:39 PM EDT [facility] Basophils Absolute, Body fluid 0 uL LAB HEMATOLOGY METHOD 08/08/2025 4:39 PM EDT [facility] Lining/Mesothel ial Cells Absolute, Body fluid 0 uL LAB HEMATOLOGY METHOD 08/08/2025 4:39 PM EDT [facility] Basophils %, Body fluid 0 % LAB HEMATOLOGY METHOD 08/08/2025 4:39 PM EDT [facility] Body Fluid Peritoneal fluid / Unknown Non-blood Collection / Unknown 08/08/2025 11:32 AM EDT 08/08/2025 2:47 PM EDT us Shaniqua Mccurdy HOTEL SERVER LAB BODY FLUIDS AND STOOLS ORDERABLES NO SPECIMEN TYPE/SOURCE Final Result [facility] [address] [place] [address] documented in this encounter Visit Diagnoses Diagnosis [...] documented as of this encounter Care Teams Blow Machine Tender Starch Spraying Relationship Specialty Start Date End Date Alvarez Zimmer MD [address] [place] [address] PCP - General Family Medicine 12/07/24 Lea Fernando [address] [facility] [address] [place] [address] Narrow Fabric Loom Fixer Endocrinology 08/29/24 Rachel Ray APRN [address] [place] [phone] Nurse Practitioner Gastroenterology 09/24/24 Tamera Isabel LPN VALUE-BASED TRANSFORMATION PROGRAM Licensed Practical Nurse 05/29/25 Monique Tapia LPN [employer] [address] TCM Nurse 07/10/25 08/09/25 documented as of this encounter
--- OUTSIDE RECORDS SUMMARY | 2025-08-08 14:27 | XMS_ITS | Encounter Summary ---
Author Organization [facility] Address [address] [place] [address] Care Team Providers Care Door Installer Name Role Phone Lea Fernando Unavailable [phone] Rachel Ray COMPLIANCE MONITOR Unavailable [phone] Alvarez Zimmer MD Primary Care Provider [phone] Tamera Isabel EMERGENCY ROOM NURSE Unavailable Unavailabl Monique Garay EMERGENCY ROOM NURSE Unavailable Unavailable Encounter Details Date Type Department Care Team (Latest Contact Info) Description 08/08/2025 2:27 PM EDT - 08/08/2025 11:59 PM EDT Hospital Encounter [facility] [address] [place] [address] Discharge Disposition: Home or Self Care Social [...] week 01/10/2025 How often do you attend [facility] or mosque services? Patient unable to answer 01/10/2025 Do you belong to any clubs o r organizations such as hindu groups, unions, [employer] or athletic groups, or school groups? Patient [...] any clubs o r organizations such as hindu groups, unions, fraternal or athletic groups, or [...] Never 06/25/2025 [facility] - Occupational Stress Questionnaire Answer [...] any time in the past 12 m [facility], were you homeless or living in a snf (including now)? No 06/26/2025 CAGE ASSESSMENT Answer [...] drink first t kennedy in the morning (EYE-CRACKING UNIT OPERATOR) to steady your nerves or to get rid of a hangover? 0 06/25/2025 CAGE Questionnaire Score 0 025 Utilities Answer Date Recorded In the past 12 months has th e [employer], gas, oil, or water [employer] threatened to shut off services in your [...] 1 03/01/2025 ergocalciferol (Vitamin D-2) 1.25 MG (08049 UT) capsuleIndication s:Vitamin D deficiency Take 1 [...] Description 08/20/2025 9:30 AM EDT Clinical Support [facility] [address] [facility] [address] [place] [address] 08/20/2025 10:30 AM EDT Social Work [facility] [place] [address] [facility] [address] [place] [address] Deysi Ortega [place], [place] [id number] 08/20/2025 11:00 AM EDT Office Visit [facility] [place] [address] [facility] [address] [place] [address] Jude Duque MD [address] [facility] [address] [place] [address] 08/22/2025 11:15 AM EDT Appointment [facility]iology [address] [place] [address] 08/22/2025 12:15 PM EDT Appointment [facility] [address] [place] [address] 08/26/2025 1:00 PM EDT Office Visit [facility] Endocrinology [address] [place] [address] Miranda Hobson P, COMPLIANCE MONITOR [address] [facility] [address] [place] [address] 08/29/2025 10:00 AM EDT Appointment [facility] [address] [place] [address] 08/29/2025 11:00 AM EDT Appointment [facility] [address] [place] [address] 09/05/2025 10:00 AM EDT Appointment [facility] [address] [place] [address] 09/05/2025 11:00 AM EDT Appointment [facility] [address] [place] [address] documented as of this encounter Procedures Procedure [...] on 08/08/2025 3:10 PM us Shaniqua Mccurdy COMPLIANCE MONITOR IMG XR PROCEDURES Final Resu lt documented [...] documented as of this encounter Care Teams Door Installer Relationship Specialty Start Date End Date Alvarez Zimmer MD [address] [place] [address] PCP - General Family Medicine 12/07/24 Lea Fernando [address] [place] [phone] Marriage And Family Counselor Endocrinology 08/29/24 Rachel Ray, COMPLIANCE MONITOR [address] [place] [address] Nurse Practitioner Gastroenterology 09/24/24 Tamera Isabel LPN VALUE-BASED TRANSFORMATION PROGRAM Licensed Practical Nurse 05/29/25 Monique Tapia LPN VALUE-[place]ED [place] [address] TCM Nurse 07/10/25 08/09/25 documented as of this encounter
--- OUTSIDE RECORDS SUMMARY | 2025-08-15 08:47 | XMS_ITS | Encounter Summary ---
Author Organization [facility] Address [address] [place] [address] Care Team Providers Care Glass Tinter Name Role Phone Lea Fernando Unavailable [phone] Rachel Ray APRN Unavailable [phone] Alvarez Zimmer MD Primary Care Provider [phone] Tamera Isabel LPN Unavailable Unavailabl e Reason for Referral * Clinic-Administered Medication (Routine) - Closed Specialty Diagnoses / Procedures Referred By Eder zhu Referred To Contact Diagnoses Other ascites Procedures NH ABDOM PARACENTESIS DX/THER W IMAGING GUIDANCE Micheal Glasgow APRN, DNP [address] [place] [address] Phone: tel: fax: [facility] [address] [place] [address] Phone: tel: fax: Referral ID Status Reason Start Date Expiration Date Visits Re quested Visits Authorized [id number] Closed 2025 02/14/2027 1 1 * Imaging (Routine) - Closed Specialty Diagnoses / Procedures Referred By Contherbert t Referred To Contact Radiology Diagnoses Alcoholic cirrhosis of liver with ascites Procedures US Guided Abdominal Paracentesis Marianna Gordon APRN [address] [place] [address] Phone: tel: fax: Referral ID Status Reason Start Date Expiration Date Visits Re quested Visits Authorized [id number] Closed 07/25/2025 01/24/2027 1 1 Reason for Visit * Imaging (Routine) - Closed Specialty Diagnoses / Procedures Referred By Eder zhu Referred To Contact Radiology Diagnoses Alcoholic cirrhosis of liver with ascites Procedures US Guided Abdominal Paracentesis Marianna Gordon APRN [address] [place] [address] Phone: tel: fax: Referral ID Status Reason Start Date Expiration Date Visits Re quested Visits Authorized [id number] Closed 07/25/2025 01/24/2027 1 1 Encounter Details Date Type Department Care Team (Latest Contact Info) Description 2025 8:47 AM EDT - 2025 11:59 PM EDT Hospital Encounter [facility] Interventional Radiology [address] [place] [address] Kami Cool RN HOSPTIAL WELDER ASSEMBLER RECOVERY Alcoholic cirrhosis of liver with ascites (CMS/HCC); Other ascites Discharge Disposition: Home or Self [...] How often do you attend [facility] or gnosticist services? Patient unable to [...] more drinks on one occasion? Never 06/25/2025 [facility] - Occupational [...] drink first t kennedy in the morning (EYE-RUBBER TUBING BACKER) to steady your nerves or to get rid of a hangover? 0 06/25/2025 CAGE Questionnaire Score 0 025 Utilities Answer Date Recorded In the past 12 months has th e [employer], gas, oil, or water [employer] threatened to shut off services in your [...] Sign Reading Time Taken Comments Blood Pressure 104/49 2025 10:10 AM EDT Pulse 72 2025 10:15 AM EDT Temperature 36.7 C (98 F) 2025 9:00 AM EDT Respiratory Rate 19 2025 10:15 AM EDT Oxygen Saturation 98% 2025 10:15 AM EDT Inhaled Oxygen Concentration - - Weight 86.2 kg (190 lb 0.6 oz) 2025 9:00 A M EDT Height 165.1 cm (5' 5 ) 2025 9:00 AM EDT Body Mass Index 31.62 2025 9:00 AM EDT documented in this encounter Medications [...] 1 03/01/2025 ergocalciferol (Vitamin D-2) 1.25 MG (12588 UT) capsuleIndication s:Vitamin D deficiency Take 1 [...] Note - Micheal Glasgow APRN, ANGELLA - 2025 10:00 AM EDT Vascular and Interventional Radiology Brief Postprocedure Note Provider: ADRI Glasgow Pre-operative Diagnosis: Ascites Post-operative Diagnosis: Ascites Type of Anesthesia: Local Description of Findings: Large volume ascites Technical/Surgical Procedures Used: Ultrasound guided paracentesis Complications: None Estimated Blood Loss: none Procedure Events Event Event Time See detailed result report with images in PACS. The patient tolerated the procedure well without incident or complication and is in stable condition. * Interval H&P Note - Micheal Glasgow APRN, DNP - 2025 10:00 AM EDT Reviewed H&P, no acute changes Source Note - Shaniqua Mccurdy APRN - 08/08/2025 [...] is no recent study available for direct esak-yg-iuyo comparison. Assessment & Plan: Decompensated cirrhosis, MASH [...] the care of this patient. Shaniqua Mccurdy, BUTTER WRAPPER Interventional Radiology [phone] [1] Past Medical History: Diagnosis Date ADHD (attention deficit hyperactivity disorder) Allergic Anxiety disorder, unspecified Anxiety Bleeding gums Blood in urine Cataract Chronic kidney disease Cirrhosis (CMS/HCC) Colon cancer screening 09/20/2019 Added automatically from request for surgery [id number] Coronary artery disease Depression 1995 Diabetes mellitus type 2 in obese 04/22/2015 Diabetic nephropathy ([facility]/HCC) Dry mouth Epigastric pain 08/02/2019 ETD (eustachian [...] 1979 BLADDER SURGERY N/A Bladder surgery from [facility] BREAST BIOPSY 2011 BREAST SURGERY 2010 BUNIONECTOMY Right CATARACT EXTRACTION Bilateral 2016 CHOLECYSTECTOMY 1979 ESOPHAGOGASTRODUODENOSCOPY HYSTERECTOMY N/A Hysterectomy from [facility] KNEE SURGERY Bilateral ORAL SURGERY N/A Oral surgery from [facility] OTHER SURGICAL HISTORY 2015 ROOT CANAL WISDOM [...] Rfl: 1 ergocalciferol (Vitamin D-2) 1.25 MG (98941 UT) capsule, Take 1 capsule by mouth [...] capsulebefore bedtime., Disp: 60 capsule, Rfl: 2 documented in this encounter Plan of Treatment Upcoming Encounters Date Type Department Care Team (Late st Contact Info) Description 08/20/2025 9:30 AM EDT Clinical Support [facility] [address] [place] [address] 08/20/2025 10:30 AM EDT Social Work [facility] [place] [id number] [place] [address] Deysi Ortega [place], [place] [id number] 08/20/2025 11:00 AM EDT Office Visit [facility] [address] [place] [address] Jude Duque MD [address] [facility] [address] [place] [address] 08/22/2025 11:15 AM EDT Appointment [facility] Interventional Radiology [address] [place] [id number] 08/22/2025 12:15 PM EDT Appointment [facility] Interventional Radiology [address] [place] [address] 08/26/2025 1:00 PM EDT Office Visit [facility] [address] [place] [id number] Miranda Hobson P, BUTTER WRAPPER [address] [facility] [address] [place] [address] 08/29/2025 10:00 AM EDT Appointment [facility] Interventional Radiology [address] [place] [address] 08/29/2025 11:00 AM EDT Appointment [facility] Inter[facility] Radiology [address] [place] [address] 09/05/2025 10:00 AM EDT Appointment [facility] Interventional Radiology [address] [place] [address] 09/05/2025 11:00 AM EDT Appointment [facility] Interventional Radiology [address] [place] [phone] documented as of this encounter Procedures Procedure Name Priority Date/Time Associated Diagnosis Comments US GUIDED ABDOMINAL PARACENTESIS Routine 2025 10:08 AM EDT Alcoholic cirrhosis of liver with ascites (CMS/HCC) US CHEST Routine 2025 10:08 AM EDT Other ascites BODY FLUID CELL COUNT W/O DIFF Routine 2025 9:25 AM EDT TOTAL PROTEIN, PERITONEAL FLUID Routine 2025 9:25 AM EDT documented in this encounter Results * US Chest (2025 10:08 AM EDT) Anatomical Region Laterality Modality Chest Ultrasound Impressions 08/17/2025 1:04 AM EDT Small right thoracentesis; thoracentesis not completed CRITICAL RESULT: No. COMMUNICATION: Per this written report. Preliminary report signed by SOLANGE Toure on 2025 11:15 AM By electronically signing this report, I, the attending physician, attest that I was not present for the procedure(s) but agree with the final edited report. Drafted by SOLANGE Toure on 2025 11:13 AM Final report signed by Mike Orr MD on 08/17/2025 1:04 AM Narrative 08/17/2025 1:04 AM EDT CLINICAL INDICATION: Gabi Zimmer is a 64 y.o. 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 Patient presents for thoracentesis. TECHNIQUE: Joint Creaser: ADRI Glasgow Procedure: Limited chest ultrasound completed with small to moderate volume right pleural effusion, lung sliding in percutaneous window. Patient asymptomatic, elected to not complete thoracentesis at this time COMPARISON: Chest x-ray 08/08/2025 Ultrasound guided thoracentesis 08/08/2025. FINDINGS: Small right sided pleural effusion COMPLICATION: No. Procedure Note Mike Orr MD - 08/17/2025 CLINICAL INDICATION: Gabi Zimmer is a 64 y.o. 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 Patient presents for thoracentesis. TECHNIQUE: Joint Creaser: ADRI Glasgow Procedure: Limited chest ultrasound completed with small to moderate volume rightpleural effusion, lung sliding in percutaneous window. Patientasymptomatic, elected to not complete thoracentesis at this time COMPARISON: Chest x-ray 08/08/2025 Ultrasound guided thoracentesis 08/08/2025. FINDINGS: Small right sided pleural effusion COMPLICATION: No. IMPRESSION: Small right thoracentesis; thoracentesis not completed CRITICAL RESULT: No. COMMUNICATION: Per this written report. Preliminary report signed by SOLANGE Toure on 2025 11:15 AM By electronically signing this report, I, the attending physician, attestthat I was not present for the procedure(s) but agree with the finaledited report. Drafted by SOLANGE Toure on 2025 11:13 AM Final report signed by Mike Orr MD on 08/17/2025 1:04 AM us Marianna Gordon APRN IMG US PROCEDURES Final Resu lt * US Guided Abdominal Paracentesis (2025 10:08 AM EDT) Anatomical Region Laterality Modality Abdomen Ultrasound Impressions 08/17/2025 1:13 AM EDT Technically successful US-guided paracentesis. A total of 6.5 liters of clear yellow fluid was removed. A sample of the fluid was sent for laboratory analysis. Administered Albumin 37.5 g IV once post procedure CRITICAL RESULT: No. COMMUNICATION: Per this written report. Preliminary report signed by SOLANGE Toure on 2025 11:16 AM By electronically signing this report, I, the attending physician, attest that I was not present for the procedure(s) but agree with the final edited report. Drafted by SOLANGE Toure on 2025 11:16 AM Final report signed by Mike Orr MD on 08/17/2025 1:13 AM Narrative 08/17/2025 1:13 AM EDT CLINICAL INDICATION: Gabi Zimmer is a 64 y.o. 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 Patient presents for paracentesis. TECHNIQUE: Joint Creaser: ADRI Glasgow Secondary Food Service Ambassador: None. Rad Dose: NA Medications: Continuous physiologic monitoring provided by a qualified healthcare professional. Administered: 1% Lidocaine SQ. Antibiotics: NA Time out: 921 Procedure: After discussion of risks and benefits, [...] permanent storage in PACS. A total of 6.5 liters of clear yellow fluid was removed. The centesis catheter was removed and occlusive dressing applied. The patient tolerated the procedure well. The patient left the IR suite in stable condition. COMPARISON: Ultrasound-guided paracentesis 08/08/2025. FINDINGS: Large volume ascites. COMPLICATION: No. Procedure Note Mike Orr MD - 08/17/2025 CLINICAL INDICATION: Gabi Zimmer is a 64 y.o. 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 Patient presents for paracentesis. TECHNIQUE: Joint Creaser: ADRI Glasgow Secondary Food Service Ambassador: None. Rad Dose: NA Medications: Continuous physiologic monitoring provided by a qualifiedhealthcare professional. Administered: 1% Lidocaine SQ. Antibiotics: NA Time out: 921 Procedure: After discussion of risks and benefits, [...] topermanent storage in PACS. A total of 6.5 liters of clear yellow fluidwas removed. The centesis catheter was removed and occlusive dressingapplied. The patient tolerated the procedure well. The patient left the IR suitein stable condition. COMPARISON: Ultrasound-guided paracentesis 08/08/2025. FINDINGS: Large volume ascites. COMPLICATION: No. IMPRESSION: Technically successful US-guided paracentesis. A total of 6.5 liters of clear yellow fluid was removed. A sample of the fluid was sent for laboratory analysis. Administered Albumin 37.5 g IV once post procedure CRITICAL RESULT: No. COMMUNICATION: Per this written report. Preliminary report signed by SOLANGE Toure on 2025 11:16 AM By electronically signing this report, I, the attending physician, attestthat I was not present for the procedure(s) but agree with the finaledited report. Drafted by SOLANGE Toure on 2025 11:16 AM Final report signed by Mike Orr MD on 08/17/2025 1:13 AM us Marianna Gordon APRN IMG US PROCEDURES Final Resu lt * Total Protein, Peritoneal Fluid (2025 9:25 AM EDT) Total Protein, Fluid 0.8 g/dL 2025 11:55 AM EDT [facility] Peritoneal Fluid Peritoneal cavity structure / Unknown Non-blood Collection / Unknown 2025 9:25 AM EDT 2025 10:45 AM EDT Narrative [facility] - 2025 11:55 AM EDT This test was developed and its performance characteristics determined by [facility]. The U.[place]. Food and Drug Administration has not approved or cleared this test. However, FDA clearance or approval is not currently required for clinical use. The results are not intended to be used as the sole means for clinical diagnosis or patient management decisions. us Micheal E Pee BUTTER WRAPPER, DNP LAB BODY FLUIDS AND ST OOLS ORDERABLES Final Result [facility] [address] [place] [address] * (ABNORMAL) Body Fluid Cell Count W/O Diff (2025 9:25 AM EDT) Specimen Source, Body Fluid Peritoneal Fluid 2025 2:25 PM EDT [facility] Specimen Type Body Fluid 2025 2:25 PM EDT [facility] Color, Body fluid Yellow LAB HEMATOLOGY METHOD 2025 2:25 PM EDT [facility] Appearance, Body fluid Cloudy(A) LAB HEMATOLOGY METHOD 2025 2:25 PM EDT [facility] Volume, Body fluid 45.0 cc LAB HEMATOLOGY METHOD 2025 2:25 PM EDT [facility] Red Blood Cell Count, Body fluid 4,000 uL LAB HEMATOLOGY METHOD 2025 2:25 PM EDT [facility] Total Nucleated Cell Count, Body fluid 129 uL LAB HEMATOLOGY METHOD 2025 2:25 PM EDT [facility] Fluid Container Specimen received in miscellaneous container LAB HEMATOLOGY METHOD 2025 2:25 PM EDT [facility] Body Fluid Peritoneal fluid / Unknown Non-blood Collection / Unknown 2025 9:25 AM EDT 2025 10:44 AM EDT us Micheal E Pee BUTTER WRAPPER, DNP LAB BODY FLUIDS AND ST OOLS ORDERABLES Final Result [facility] [address] [place] [address] documented in this encounter Visit Diagnoses Diagnosis Alcoholic cirrhosis of liver with ascites Other ascites documented in this encounter Administered Medications Inactive Administered Medications - up to 3 most recent administrations Medication Order MAR Action Action Date Dose Rate Site albumin human 25 % infusion 37.5 g 37.5 g, Intravenous, Once as needed, 1 dose, Starting on Sarahi 08/15/25 at 0932, Until Sarahi 08/15/25 at 0939, Routine, Intraprocedure, For 5-6.9 L drained New Bag 2025 9:39 AM EDT 37.5 g lidocaine 0.9% in sodium bicarbonate (buffered lidocaine) solution solution As needed, Starting on Sarahi 08/15/25 at 0923, Until Sarahi 08/15/25 at 0923, Routine, Intraprocedure Given 2025 9:23 AM EDT 10 mL documented in this encounter Additional Health Concerns Assessment Noted Time PHQ-9 Depression Total Score: 6 06/11/20 25 10:59 AM EDT A fall risk assessment has been complete d for the patient 06/25/2025 12:59 PM EDT A Body Mass Index follow-up plan has been documented for the patient 08/08/2025 3:09 PM EDT documented as of this encounter Care Teams Glass Tinter Relationship Specialty Start Date End Date Alvarez Zimmer MD [address] [place] [address] PCP - General Family Medicine 12/07/24 Lea Fernando [address] [place] [address] Nursing Home Director Endocrinology 08/29/24 Rachel Ray APRN [address] [place] [address] Nurse Practitioner Gastroenterology 09/24/24 Tamera Isabel LPN VALUE-BASED TRANSFORMATION PROGRAM Licensed Practical Nurse 05/29/25 documented as of this encounter
--- OUTSIDE RECORDS SUMMARY | 2025-08-17 13:36 | XMS_ITS | Encounter Summary ---
Author Organization [facility] Address [address] [place] [address] Care Team Providers Care Charge Out Clerk Name Role Phone Lea Fernando Unavailable [phone] Rachel Ray TRACK MECHANIC Unavailable [phone] Alvarez Zimmer MD Primary Care Provider [phone] Tamera Isabel BAREBACK RIDER Unavailable UnavailAlina Bedolla RN Unavailable Unavailab Monique Che BAREBACK RIDER Unavailable Unavailable Reason for Visit * Reason Onset Date Comments Med Refill 05/21/2025 Encounter Details Date Type Department Care Team (Late st Contact Info) Description 05/21/2025 Refill [facility] [address] [facility], [address] [place] [address] Ar Dominique MD [address] [facility] [facility] [address] [place] [address] Chronic kidney disease, stage 3b [...] you attend [facility] or sikhism services? Patient unable to [...] Recorded Patient Health Questionnaire-2 Score 1 05/07/2025 [facility] of Occupat ional Health - Occupational Stress [...] first t kennedy in the morning (EYE-SUPERVISOR ELECTRONIC COILS) to steady your nerves or to get rid of a hangover? 0 10/22/2024 CAGE Questionnaire Score 0 024 Utilities Answer Date Recorded In the past 12 months has e [employer], gas, oil, or water company threatened to [...] Description 08/20/2025 9:30 AM EDT Clinical Support [facility] [place] [address] [place] [address] 08/20/2025 10:30 AM EDT Social Work [facility] [place] [address] [place] [address] [place] [address] 08/20/2025 11:00 AM EDT Office Visit [facility] [address] [place] [address] Jude Duque MD [address] [place] [address] 08/22/2025 11:15 AM EDT Appointment [facility] Inter[facility] Radiology [address] [place] [address] 08/22/2025 12:15 PM EDT Appointment [facility] Inter[facility] Radiology [address] [place] [address] 08/26/2025 1:00 PM EDT Office Visit [facility] Endocrinology [address] [place] [address] Miranda Hobson, TRACK MECHANIC [address] [facility] [address] [place] [address] 08/29/2025 10:00 AM EDT Appointment [facility] Inter[facility] Radiology [address] [place] [address] 08/29/2025 11:00 AM EDT Appointment [facility] [address] [place] [address] 09/05/2025 10:00 AM EDT Appointment [facility] Radiology [address] [place] [address] 09/05/2025 11:00 AM EDT Appointment [facility] Inter[facility] Radiology [address] [place] [address] documented as of this encounter Visit Diagnoses [...] documented as of this encounter Care Teams Charge Out Clerk Relationship Specialty Start Date End Date Alvarez Zimmer MD [address] [place] [address] PCP - General Family Medicine 12/07/24 Lea Fernando [address] [facility] [address] [place] [address] Hotel Associate Endocrinology 08/29/24 Rachel Ray, TRACK MECHANIC [address] [facility] [address] [place] [address] Nurse Practitioner Gastroenterology 09/24/24 Tamera Isabel LPN VALUE-BASED TRANSFORMATION PROGRAM Licensed Practical Nurse 05/29/25 Alina Lovett, RN [facility]-VASCULAR & INTERVENTIONAL RADIOLOGY Registered Nurse 06/26/25 06/26/25 Monique Tapia LPN VALUE-BASED [place] [address] TCM Nurse 07/10/25 08/09/25 documented as of this encounter
--- OUTSIDE RECORDS SUMMARY | 2025-08-17 13:37 | XMS_ITS ---
Author Organization [facility] Address [address] [place] [address] Care Team Providers Care Radio Repairman Name Role Phone Lea Fernando Unavailable [phone] Rachel Ray PROCESS EQUIPMENT OPERATOR Unavailable [phone] Alvarez Zimmer MD Primary Care Provider [phone] Tamera Isabel COMMERCIAL INSTRUCTOR SUPERVISOR Unavailable Unavailabl e LINK Program Status:Closed (Closed) Start date:06/26/2025 Enrollment date:06/26/2025 End date:06/26/2025 Close reason:Not Eligible Overview Patient identified for LINK program. Following chart review, patient determined to be ineligible based on program criteria. (Transplant) Continued Care and Services Coordination
--- OUTSIDE RECORDS SUMMARY | 2025-08-17 13:37 | XMS_ITS ---
Author Organization [facility] Address [address] [place] [address] Care Team Providers Care Retanner Name Role Phone Lea Fernando Unavailable [phone] Rachel Ray ONCOLOGY SOCIAL WORKER Unavailable [phone] Alvarez Zimmer MD Primary Care Provider [phone] Tamera Isabel DUSTER TENDER Unavailable Unavailabl e Transitional Care Management Status:Closed (Closed) Start date:07/10/2025 Enrollment reason:Identified using hospital discharge data End date:08/09/2025 Close reason:Patient graduated Overview This episode type is for outpatient care managers enrolling patients in the [facility] Transitional Care Management program. Continued Care and Services Coordination
--- OUTSIDE RECORDS SUMMARY | 2025-08-17 13:37 | XMS_ITS | Encounter Summary ---
Author Organization [facility] Address [address] [place] [address] Care Team Providers Care Maxillofacial Pathology Name Role Phone Lea Fernando Unavailable [phone] Rachel Ray STATISTICAL MODELER Unavailable [phone] Alvarez Zimmer MD Primary Care Provider Tamera Isabel COMMUNICATION STUDIES PROFESSOR Unavailable Unavailabl Monique Garay LPN Unavailable Unavailable Encounter Details Date Type Department Care Team (Latest Contact Info) Description 08/01/2025 Travel Social History Tobacco Use Types Packs/Day [...] more drinks on one occasion? Never 06/25/2025 [facility] of Occupat ional Health - [...] drink first t kennedy in the morning (EYE-SIGN CARPENTER) to steady your nerves or to get [...] Description 08/20/2025 9:30 AM EDT Clinical Support [facility] [address] [place] [address] 08/20/2025 10:30 AM EDT Social Work [facility] [place] [address] [place] [address] [place] [address] 08/20/2025 11:00 AM EDT Office Visit [facility] [address] [place] [address] Jude Duque MD [address] [place] [address] 08/22/2025 11:15 AM EDT Appointment [facility] Inter[facility] Radiology [address] [place] [address] 08/22/2025 12:15 PM EDT Appointment [facility] Inter[facility] Radiology [address] [place] [address] 08/26/2025 1:00 PM EDT Office Visit [facility] Endocrinology [address] [place] [address] Miranda Hobson P, STATISTICAL MODELER [address] [place] [address] 08/29/2025 10:00 AM EDT Appointment [facility] Inter[facility] Radiology [address] [place] [address] 08/29/2025 11:00 AM EDT Appointment [facility]iology [address] [place] [address] 09/05/2025 10:00 AM EDT Appointment [facility] [address] [place] [address] 09/05/2025 11:00 AM EDT Appointment [facility] Radiology [address] [place] [address] documented as of this encounter Visit Diagnoses [...] documented as of this encounter Care Teams Maxillofacial Pathology Relationship Specialty Start Date End Date Alvarez Zimmer MD [address] [place] [address] PCP - General Family Medicine 12/07/24 Lea Fernando [address] [place] [address] Mold Runner Endocrinology 08/29/24 Rachel Ray APRN [address] [place] [address] Nurse Practitioner Gastroenterology 09/24/24 Tamera Isabel LPN VALUE-BASED TRANSFORMATION PROGRAM Licensed Practical Nurse 05/29/25 Monique Tapia LPN VALUE-BASED [place] [address] TCM Nurse 07/10/25 08/09/25 documented as of this encounter
--- OUTSIDE RECORDS SUMMARY | 2025-08-17 13:37 | XMS_ITS | Encounter Summary ---
Author Organization [facility] Address [address] [place] [address] Care Team Providers Care Warehouse Supervisor 3Rd Shift Name Role Phone Lea Fernando Unavailable [phone] Rachel Ray PROOF PLATE MAKER Unavailable [phone] Alvarez Zimmer MD Primary Care Provider [phone] Tamera Isabel ETIOLOGY TEACHER Unavailable Unavailabl e Encounter Details Date Type [...] week 05/29/2025 How often do you attend [facility] or synagogue services? Never 05/29/2025 Do you [...] more drinks on one occasion? Never 06/25/2025 [facility] of Occupat ional [facility] - Occupational Stress Questionnaire [...] drink first t kennedy in the morning (EYE-HYDROSTATIC TUBING TESTER) to steady your nerves or to [...] Description 08/20/2025 9:30 AM EDT Clinical Support [facility] [place] [address] [place] [address] 08/20/2025 10:30 AM EDT Social Work [facility] [place] [address] [facility] [address] [place] [address] [place] [address] 08/20/2025 11:00 AM EDT Office Visit [facility] [place] [address] [facility] [address] [place] [address] Jude Duque MD [address] [facility] [address] [place] [address] 08/22/2025 11:15 AM EDT Appointment [facility] Inter[facility] Radiology [address] [place] [address] 08/22/2025 12:15 PM EDT Appointment [facility] Inter[facility]iology [address] [place] [address] 08/26/2025 1:00 PM EDT Office Visit [facility] Endocrinology [address] [place] [address] Miranda Hobson P, PROOF PLATE MAKER [address] [facility] [address] [place] [address] 08/29/2025 10:00 AM EDT Appointment [facility] Inter[facility] Radiology [address] [place] [address] 08/29/2025 11:00 AM EDT Appointment [facility] [address] [place] [address] 09/05/2025 10:00 AM EDT Appointment [facility] [address] [place] [address] 09/05/2025 11:00 AM EDT Appointment [facility] [address] [place] [address] documented as of this encounter Visit Diagnoses [...] documented as of this encounter Care Teams Warehouse Supervisor 3Rd Shift Relationship Specialty Start Date End Date Alvarez Zimmer MD [address] [place] [address] PCP - General Family Medicine 12/07/24 Lea Fernando [address] [facility] [address] [place] [address] Admission Discharge Rn Endocrinology 08/29/24 Rachel Ray APRN [address] [facility] [address] [place] [address] Nurse Practitioner Gastroenterology 09/24/24 Tamera Isabel LPN VALUE-BASED TRANSFORMATION PROGRAM Licensed Practical Nurse 05/29/25 documented as of this encounter
--- OUTSIDE RECORDS SUMMARY | 2025-08-17 13:37 | XMS_ITS | Encounter Summary ---
Author Organization [facility] Address [address] [place] [address] Care Team Providers Care Rig Builder Helper Name Role Phone Lea Fernando Unavailable [phone] Rachel Ray PAYROLL AND BENEFITS COORDINATOR Unavailable [phone] Alvarez Zimmer MD Primary Care Provider [phone] Tamera Isabel VASCULAR TECHNOLOGIST SONOGRAPHER Unavailable UnavailAlina Bedolla RN Unavailable Unavailab Monique Che VASCULAR TECHNOLOGIST SONOGRAPHER Unavailable Unavailable Reason for Visit * Reason Onset Date Comments Med Refill 05/21/2025 Encounter Details Date Type Department Care Team (Late st Contact Info) Description 05/21/2025 Refill [facility] [address] [place] [address] Alvarez Zimmer MD [address] [place] [address] Social History Tobacco Use Types [...] do you attend [facility] or islam services? Patient unable to [...] 1 05/07/2025 [facility] of Occupat ional Health - [...] drink first t kennedy in the morning (EYE-MEAT MOLDER) to steady your nerves or to get rid of a hangover? 0 10/22/2024 CAGE Questionnaire Score 0 024 Utilities Answer Date Recorded In the past 12 months has e [employer], gas, oil, or water [employer] threatened to shut off services in your [...] Description 08/20/2025 9:30 AM EDT Clinical Support [facility] [place] [address] [place] [address] 08/20/2025 10:30 AM EDT Social Work [facility] [place] [address] [place] [address] [place] [address] 08/20/2025 11:00 AM EDT Office Visit [facility] [place] [address] [place] [address] Jude Duque MD [address] [place] [address] 08/22/2025 11:15 AM EDT Appointment [facility] Inter[facility] Radiology [address] [place] [address] 08/22/2025 12:15 PM EDT Appointment [facility] Inter[facility] Radiology [address] [place] [address] 08/26/2025 1:00 PM EDT Office Visit [facility] Endocrinology [address] [place] [address] Miranda Hobson P, PAYROLL AND BENEFITS COORDINATOR [address] [facility] [address] [place] [address] 08/29/2025 10:00 AM EDT Appointment [facility] Inter[facility] Radiology [address] [place] [address] 08/29/2025 11:00 AM EDT Appointment [facility] [address] [place] [address] 09/05/2025 10:00 AM EDT Appointment [facility] [address] [place] [address] 09/05/2025 11:00 AM EDT Appointment [facility]iology [address] [place] [address] documented as of this encounter Visit Diagnoses [...] documented as of this encounter Care Teams Rig Builder Helper Relationship Specialty Start Date End Date [place] [address] PCP - General Family Medicine 12/07/24 Lea Fernando [address] [facility] [address] [place] [address] Communications Equipment Installer Endocrinology 08/29/24 Rachel Ray, PAYROLL AND BENEFITS COORDINATOR [address] [place] [address] Nurse Practitioner Gastroenterology 09/24/24 Tamera Isabel LPN VALUE-BASED TRANSFORMATION PROGRAM Licensed Practical Nurse 05/29/25 Alina Lovett, RN CH-VASCULAR & INTERVENTIONAL RADIOLOGY Registered Nurse 06/26/25 06/26/25 Monique Tapia LPN VALUE-BASED [place] [address] TCM Nurse 07/10/25 08/09/25 documented as of this encounter
--- OUTSIDE RECORDS SUMMARY | 2025-08-17 13:38 | XMS_ITS | Encounter Summary ---
Author Organization [facility] Address [address] [place] [address] Care Team Providers Care Floatman Name Role Phone Lea Fernando Unavailable [phone] Rachel Ray PRODUCT DEVELOPMENT WORKER Unavailable [phone] Alvarez Zimmer MD Primary Care Provider [phone] Tamera Isabel CHICKEN TENDER Unavailable Unavailabl Monique Garay LPN Unavailable Unavailable Encounter Details Date Type Department Care Team (Latest Contact Info) Description 08/08/2025 Travel Social History Tobacco Use Types Packs/Day [...] often do you attend chur ch or restorationist services? Patient unable to answer [...] often do you attend chur ch or restorationist services? Never 05/29/2025 Do you [...] more drinks on one occasion? Never 06/25/2025 [facility] Occupat ional [...] drink first t kennedy in the morning (EYE-SPREADER OPERATOR AUTOMATIC) to steady your nerves or to get [...] 1 Month) No 08/08/2025 10:00 AM TAMMYT Mariam Thomas RN 2. Non-Specific Active Suici liz Thoughts (Past 1 Month) No 08/08/2025 10:00 AM TAMMYT Bay Thomas RN 6. Suicidal Behavior (Lifetime) No 10:00 AM EDT Mariam Thomas RN documented as of this encounter Plan of Treatment Upcoming Encounters Date Type Department Care Team (Late st Contact Info) Description 08/20/2025 9:30 AM EDT Clinical Support [facility] [address] [place] [address] 08/20/2025 10:30 AM EDT Social Work [facility] [address] [place] [address] [place] [address] 08/20/2025 11:00 AM EDT Office Visit [facility] [address] [place] [address] Jude Duque MD [address] [place] [address] 08/22/2025 11:15 AM EDT Appointment [facility] [address] [place] [address] 08/22/2025 12:15 PM EDT Appointment [facility] [address] [place] [address] 08/26/2025 1:00 PM EDT Office Visit [facility] Endocrinology [address] [place] [address] Miranda Hobson P, PRODUCT DEVELOPMENT WORKER [address] [facility] [address] [place] [address] 08/29/2025 10:00 AM EDT Appointment [facility] [address] [place] [address] 08/29/2025 11:00 AM EDT Appointment [facility] [address] [place] [address] 09/05/2025 10:00 AM EDT Appointment [facility] [address] [place] [address] 09/05/2025 11:00 AM EDT Appointment [facility] [address] [place] [address] documented as of this encounter Visit Diagnoses [...] documented as of this encounter Care Teams Floatman Relationship Specialty Start Date End Date Alvarez Zimmer MD [address] [place] [address] PCP - General Family Medicine 12/07/24 Lea Fernando [address] [facility] [address] [place] [address] Mammalogy Teacher Endocrinology 08/29/24 Rachel Ray APRN [address] [facility] [address] [place] [address] Nurse Practitioner Gastroenterology 09/24/24 Tamera Isabel LPN VALUE-BASED TRANSFORMATION PROGRAM Licensed Practical Nurse 05/29/25 Monique Tapia LPN VALUE-BASED [place] [address] TCM Nurse 07/10/25 08/09/25 documented as of this encounter
--- OUTSIDE RECORDS SUMMARY | 2025-08-17 13:38 | XMS_ITS | Encounter Summary ---
Author Organization [facility] Address [address] [place] [address] Care Team Providers Care Plastic Welder Name Role Phone Lea Fernando Unavailable [phone] Rachel Ray MEDICAL DOCTOR Unavailable [phone] Alvarez Zimmer MD Primary Care Provider [phone] Tamera Isabel MEAT CUTTING BLOCK REPAIRER Unavailable Unavailabl Monique Garay MEAT CUTTING BLOCK REPAIRER Unavailable Unavailable Reason for Visit * Reason Comments TCM Encounter Details Date Type Department Care Team (Late st Contact Info) Description 07/19/2025 Patient Outreach [facility] [address] [facility], [address] [place] [address] Jeaneth Oscar LPN TCM Social [...] 01/10/2025 How often do you attend [facility] or latter-day services? Patient unable to answer 01/10/2025 Do you belong to any clubs o r organizations such as sabianism groups, [employer], [employer] or athletic groups, or school groups? Patient [...] one occasion? Never 06/25/2025 [facility] - Occupational Stress Questionnaire Answer [...] drink first t kennedy in the morning (EYE-SCROLL ASSEMBLER) to steady your nerves or to [...] see if she was still in the [facility] and she stated yes, [...] Description 08/20/2025 9:30 AM EDT Clinical Support [facility] [address] [place] [address] 08/20/2025 10:30 AM EDT Social Work [facility] [address] [place] [address] Deysi Ortega [facility] [address] 08/20/2025 11:00 AM EDT Office Visit [facility] [address] [place] [address] Jude Duque MD [address] [place] [address] 08/22/2025 11:15 AM EDT Appointment [facility] [address] [place] [address] 08/22/2025 12:15 PM EDT Appointment [facility] [address] [place] [address] 08/26/2025 1:00 PM EDT Office Visit [facility] Endocrinology [address] [place] [address] Miranda Hobson P, MEDICAL DOCTOR [address] [facility] [address] [place] [address] 08/29/2025 10:00 AM EDT Appointment [facility] [address] [place] [address] 08/29/2025 11:00 AM EDT Appointment [facility] [address] [place] [address] 09/05/2025 10:00 AM EDT Appointment [facility] [address] [place] [address] 09/05/2025 11:00 AM EDT Appointment [facility] [address] [place] [address] documented as of this encounter Visit Diagnoses [...] documented as of this encounter Care Teams Plastic Welder Relationship Specialty Start Date End Date Alvarez Zimmer MD [address] [place] [address] PCP - General Family Medicine 12/07/24 Lea Fernando [address] [facility] [address] [place] [address] Food Clerk Endocrinology 08/29/24 Rachel Ray, MEDICAL DOCTOR [address] [place] [address] Nurse Practitioner Gastroenterology 09/24/24 Tamera Isabel LPN VALUE-BASED TRANSFORMATION PROGRAM Licensed Practical Nurse 05/29/25 Monique Tapia LPN VALUE-[place]ED [place] [address] TCM Nurse 07/10/25 08/09/25 documented as of this encounter
--- OUTSIDE RECORDS SUMMARY | 2025-08-17 13:38 | XMS_ITS | Encounter Summary ---
Author Organization [facility] Address [address] [place] [address] Care Team Providers Care Hat Former Name Role Phone Lea Fernando Unavailable [phone] Rachel Ray DIRECTOR CASE MANAGEMENT Unavailable [phone] Alvarez Zimmer MD Primary Care Provider [phone] Tamera Isabel EXTRACTION SUPERVISOR Unavailable Unavailabl e Reason for Visit * Reason Onset Date Comments HCN - Patient Message 08/16/2025 Encounter Details Date Type Department Care Team (Late st Contact Info) Description 08/16/2025 Telephone [facility] Endocrinology [address] [place] [address] Sharif Moreno, DPNicole [address] [facility] [address] [place] [address] HCN - Patient Message Social History Tobacco Use Types Packs/Day Years [...] o r organizations such as orthodoxy groups, DxNAs, [employer] or athletic groups, or school groups? Patient [...] r organizations such as orthodoxy groups, unions, [employer] or athletic groups, or school groups? No [...] more drinks on one occasion? Never 06/25/2025 [facility] of Occupat ional Health - Occupational Stress [...] drink first t kennedy in the morning (EYE-BANKRUPTCY PROCESSOR) to steady your nerves or to get rid of a hangover? 0 06/25/2025 CAGE Questionnaire Score 0 025 Utilities Answer Date Recorded In the past 12 months has th [employer] electric, gas, oil, or water company [...] encounter Miscellaneous Notes * Telephone Encounter - Kierra Carroll - 08/16/2025 11:20 AM EDT Patient Phone Message Reason for Call: Pt is requesting a call to rs.. Best contact number and optimal time of day to reach caller: [phone] Note: Please do not reply to this message. Follow-up communication and further actions as a result of this message need to be communicated with the patient directly, if the patient is not active onMyChart. If the patient is active on MyChart, they will receive notification of the communication/outcome via [employer]. documented in this encounter Plan of Treatment Upcoming Encounters Date Type Department Care Team (Late st Contact Info) Description 08/20/2025 9:30 AM EDT Clinical Support [facility] [place] [address] [place] [address] 08/20/2025 10:30 AM EDT Social Work [facility] [place] [address] [facility] [address] [place] [address] Deysi Ortega [place], [place] [id number] 08/20/2025 11:00 AM EDT Office Visit [facility] [place] [address] [facility] [address] [place] [address] Jude Duque MD [address] [facility] [address] [place] [address] 08/22/2025 11:15 AM EDT Appointment [facility] [address] [place] [address] 08/22/2025 12:15 PM EDT Appointment [facility] [address] [place] [address] 08/26/2025 1:00 PM EDT Office Visit [facility] Endocrinology [address] [place] [address] Miranda Hobson P, DIRECTOR CASE MANAGEMENT [address] [facility] [place] [address] [place] [address] 08/29/2025 10:00 AM EDT Appointment [facility] [address] [place] [address] 08/29/2025 11:00 AM EDT Appointment [facility] [address] [place] [address] 09/05/2025 10:00 AM EDT Appointment [facility] [address] [place] [address] 09/05/2025 11:00 AM EDT Appointment [facility] [address] [place] [address] documented as of this encounter Visit Diagnoses [...] as of this encounter Care Teams Hat Former Relationship Specialty Start Date End Date Alvarez Zimmer MD [address] [place] [address] PCP - General Family Medicine 12/07/24 Lea Fernando [address] [place] [address] [facility] Endocrinology 08/29/24 Rachel Ray APRN [address] [facility] [address] [place] [address] Nurse Practitioner Gastroenterology 09/24/24 Tamera Isabel LPN VALUE-BASED TRANSFORMATION PROGRAM Licensed Practical Nurse 05/29/25 documented as of this encounter
--- OUTSIDE RECORDS SUMMARY | 2025-08-17 13:38 | XMS_ITS | Encounter Summary ---
Author Organization [facility] Address [address] [place] [address] Care Team Providers Care Medical Appliance Maker Name Role Phone Lea Fernando Unavailable [phone] Rachel Ray BIOMEDICAL INSTRUMENT TECHNICIAN Unavailable [phone] Alvarez Zimmer MD Primary Care Provider [phone] Tamera Isabel IT HELP DESK ANALYST Unavailable Unavailabl Monique Garay LPN Unavailable Unavailable Encounter Details Date Type Department Care Team (Latest Contact Info) Description 08/05/2025 Travel Social History Tobacco Use Types Packs/Day [...] you attend chur ch or anabaptist services? Patient unable to answer [...] more drinks on one occasion? Never 06/25/2025 [facility] of Occupat ional Health [...] drink first t kennedy in the morning (EYE-SOFTWARE QA SYSTEM SPECIALIST) to steady your nerves or to [...] Description 08/20/2025 9:30 AM EDT Clinical Support [facility] [address] [place] [address] 08/20/2025 10:30 AM EDT Social Work [facility] [place] [address] [place] [address] [place] [address] 08/20/2025 11:00 AM EDT Office Visit [facility] [address] [place] [address] Jude Duque MD [address] [place] [address] 08/22/2025 11:15 AM EDT Appointment [facility] Inter[facility] Radiology [address] [place] [address] 08/22/2025 12:15 PM EDT Appointment [facility] Interventional Radiology [address] [place] [address] 08/26/2025 1:00 PM EDT Office Visit [facility] Endocrinology [address] [place] [address] Miranda Hobson P, BIOMEDICAL INSTRUMENT TECHNICIAN [address] [place] [address] 08/29/2025 10:00 AM EDT Appointment [facility] Radiology [address] [place] [address] 08/29/2025 11:00 AM EDT Appointment [facility] [address] [place] [address] 09/05/2025 10:00 AM EDT Appointment [facility] [address] [place] [address] 09/05/2025 11:00 AM EDT Appointment [facility] [address] [place] [address] documented as of this encounter Visit Diagnoses [...] as of this encounter Care Teams Medical Appliance Maker Relationship Specialty Start Date End Date Alvarez Zimmer MD [address] [place] [address] PCP - General Family Medicine 12/07/24 Lea Fernando [address] [place] [address] [facility] Endocrinology 08/29/24 Rachel Ray APRN [address] [place] [address] Nurse Practitioner Gastroenterology 09/24/24 Tamera Isabel LPN VALUE-BASED TRANSFORMATION PROGRAM Licensed Practical Nurse 05/29/25 Monique Tapia LPN VALUE-BASED [place] [address] TCM Nurse 07/10/25 08/09/25 documented as of this encounter
--- OUTSIDE RECORDS SUMMARY | 2025-08-17 13:38 | XMS_ITS | Encounter Summary ---
Author Organization [facility] Address [address] [place] [address] Care Team Providers Care Lead Shipper Name Role Phone Lea Fernando Unavailable [phone] Rachel Ray CLIENT ACCOUNT ASSISTANT Unavailable [phone] Alvarez Zimmer MD Primary Care Provider [phone] Tamera Isabel QUALITY ASSURANCE MONITOR Unavailable Unavailabl Monique Garay LPN Unavailable Unavailable [...] you attend chur ch or sabianist services? Patient unable to answer [...] occasion? Never 06/25/2025 [facility] of Occupat ional Health - [...] first t kennedy in the morning (EYE-SENIOR CORE JAVA DEVELOPER) to steady your nerves or to [...] AM EDT Clinical Support [facility] [address] [place] [address] 08/20/2025 10:30 AM EDT Social Work [facility] [place] [address] [place] [address] [place] [address] 08/20/2025 11:00 AM EDT Office Visit [facility] [address] [place] [address] Jude Duque MD [address] [place] [address] 08/22/2025 11:15 AM EDT Appointment [facility] [address] [place] [address] 08/22/2025 12:15 PM EDT Appointment [facility] [address] [place] [address] 08/26/2025 1:00 PM EDT Office Visit [facility] Endocrinology [address] [place] [address] Miranda Hobson P, CLIENT ACCOUNT ASSISTANT [address] [place] [address] 08/29/2025 10:00 AM EDT Appointment [facility] [address] [place] [address] 08/29/2025 11:00 AM EDT Appointment [facility] [address] [place] [address] 09/05/2025 10:00 AM EDT Appointment [facility] [address] [place] [address] 09/05/2025 11:00 AM EDT Appointment [facility] [address] [place] [address] documented as of this encounter Visit Diagnoses [...] documented as of this encounter Care Teams Lead Shipper Relationship Specialty Start Date End Date Alvarez Zimmer MD [address] [place] [address] PCP - General Family Medicine 12/07/24 Lea Fernando [address] [place] [address] Student Support Services Director Endocrinology 08/29/24 Rachel Ray APRN [address] [place] [address] Nurse Practitioner Gastroenterology 09/24/24 Tamera Isabel LPN VALUE-BASED TRANSFORMATION PROGRAM Licensed Practical Nurse 05/29/25 Monique Tapia LPN VALUE-BASED [place] [address] TCM Nurse 07/10/25 08/09/25 documented as of this encounter
--- OUTSIDE RECORDS SUMMARY | 2025-08-17 13:38 | XMS_ITS | Data Portability ---
Author Organization [place] - [facility] [place] Address [address] [place] [address] Care Team Providers Care Therapeutic Strategy Lead Name Role Phone SHARMAINE FUNMI Primary Care Provider JAIR JAMISON Certified Medical Dosimetrist [phone] CHANNING ANTONIO Community Health Director Assessment Encounter Date Assessment Date Assessment LastModified by Organization Details LastModified Time 07/17/2024 07/17/2024 Evaluation and examination. Discussed podiatric pathology including treatment options with the patient at length. Not available 07/20/2024 09:27:20 Plan of Treatment Reminders Order Date Submit Date Provider Last Modified By Organization Details Last Modified Time Details Appointments None recorded. Lab CMP, serum or plasma 2023 [facility] (Lab Registration) , [address] [place] [address] [place], [address], 4 10:34:33 PT/INR 2023 [facility] (Lab Registration) , [address] [place] [address] [place], [address], 4 10:34:33 CBC w/ auto diff 2023 [facility] (Lab Registration) , [address] [place] [address] [place], [address], 4 10:34:33 afp (alpha-fet oprotein) tumor marker, serum or plasma [address] [facility] (Lab Registration) , [address] [facility] [place], [address], 4 08:23:35 CMP, serum or plasma 2023 024 [facility] (Lab Registration) , [address] [facility] [place], [address], 4 14:28:13 cell count w/ diff, body fluid 2023 024 [facility] (Lab Registration) , [address] [facility] [place], [address], 4 14:28:13 gram stain, body fluid 2023 024 [facility] (Lab Registration) , [address] [facility] [place], [address], 4 14:28:13 culture, body fluid 2023 024 [facility] (Lab Registration) , [address] [facility] [place], [address], 4 14:28:13 cell count w/ diff, body fluid 2023 024 [place] [facility] (Lab Registration) , [address] [facility] [place], [address], 4 16:35:51 culture, body fluid 2023 024 [place] [facility] (Lab Registration) , [address] [facility] [place], [address], 4 11:54:59 gram stain, body fluid 2023 024 [facility] (Lab Registration) , [address] [facility] [place], [address], 4 14:05:44 Referral liver transplant referral 2023 024 [facility], [address] [facility], [address] [place] [address], [place], [address], 4 09:53:22 Procedures None recorded. Surgeries ultrasound guided paracentes is (SURG) 2023 024 katherinnelling Not available 13:36:56 ultrasound guided paracentes is (SURG) 2023 024 sergeying Not available 16:08:27 Imaging US, liver 2023 024 [facility] (Central Scheduling), [address] [place] [address] , [place], [address], 4 09:52:54 Medication Orders pantoprazo le 40 mg tablet,del ayed release 2023 024 [id number], [address] [facility] , [place], [address], 4 09:02:39 Lasix 40 mg tablet 2023 024 [facility] [id number], [address], [place], [address], 4 09:22:31 spironolac tone 100 mg tablet 2023 024 [facility] [id number], [address], [place], [address], 4 09:22:34 Patient TargetsNo targets recorded. Patient Instructions Encounter Date Encounter Id Patient Instructions Last Modified By Organization Details Last Modified Time 07/17/2024 [id number] diabetes foot health: care instructions Not available 07/17/2024 15:03:41 F/u 1 year caitlin l foot exam and order shoes Not available 07/20/2024 09:27:44 Some of the information in this note was entered by the [facility] under the direction and training of the attending physician. I have reviewed the documentation of the encounter entered by the [facility] and attest that it is accurate. M*Modal photography manager software was utilized to enter some information in this note and therefore may contain voice recognition errors. Intake and other documentation entered by Jerrica Mcguire [facility]. [email or web address] Not available 07/17/2024 10:25:16 Reason for Referral Liver Transplant Referral fo r Cirrhosis of liver Referring Physician: Lan Enriquez, Gastroenterology, Encounter Date: 07/20/2024 Results Created Date Observation Date Name Description Value Unit Range Abnormal Flag Note LastModifiedBy Organization Detail LastModifiedTime 07/20/2007/20/2024 CELL COUNT body fluid count performed by: AUTOMA HEIDI COUNT Not Available [facility] (Pre[facility]Op Clinic) [address] [place] [address] [place], [address], 07/20/2024 16:35:51 07/20/20 24 07/20/2024 CELL COUNT source ABDOMI NAL Not Available [facility] (Pre[facility]Op [facility]) [address] [place] [address] [place], [address], 07/20/2024 16:35:51 07/20/20 24 07/20/2024 CELL COUNT color YELLOW clear Not Available [facility] ([facility]Op [facility]) [address] [place] [address] [place], [address], 07/20/2024 16:35:51 07/20/20 24 07/20/2024 CELL COUNT apperance CLEAR clear Not Available [facility] ([facility]Op [facility]) [address] [place] [address] [place], [address], 07/20/2024 16:35:51 07/20/20 24 07/20/2024 CELL COUNT viscosity NORMAL normal Not Available [facility] ([facility]) [address] [place] [address] [place], [address], 07/20/2024 16:35:51 07/20/20 24 07/20/2024 CELL COUNT WBC 290 /uL Not Available [facility] ([facility]) [address] [place] [address] [place], [address], 07/20/2024 16:35:51 07/20/20 24 07/20/2024 CELL COUNT RBC 2000 /uL Not Available [facility] (Pre-Op Clinic) [address] [place] [address] [place], [address], 07/20/2024 16:35:51 07/20/20 24 07/20/2024 CELL COUNT polynuclear 8.6 % Not Available [facility] (Pre-Op Clinic) [address] [place] [address] [place], [address], 07/20/2024 16:35:51 07/20/20 24 07/20/2024 CELL COUNT mononuclear 91.4 % ALL COUNT S PERFO RMED ON HEMAC YTOME TER ARE DONE IN [facility]. Not Available [facility] (Pre-Op Clinic) [address] [place] [address] [place], [address], 07/20/2024 16:35:51 07/20/20 24 07/20/2024 CELL COUNT note Unles s other duffy noted testi ng perfo rmed at: [facility] [address] [place] [address] Erwin osorio MD Not Available [facility] (Pre-Op Clinic) [address] [place] [address] [place], [address], 07/20/2024 16:35:51 07/20/20 24 07/20/2024 GRAM STAIN source BF Not Available [facility] (Pre[facility]Op Clinic) [address] [place] [address] [place], [address], 07/20/2024 17:39:56 07/20/20 24 07/20/2024 GRAM STAIN organism #1 NO ORGANI SMS Not Available [facility] (Pre[facility]Op Clinic) [address] [place] [address] [place], [address], 07/20/2024 17:39:56 07/20/20 24 07/20/2024 GRAM STAIN WBC NO WBC'S SEEN no WBC's seen Not Available [facility] (Pre[facility]Op [facility]) [address] [place] [address] [place], [address], 07/20/2024 17:39:56 07/20/20 24 07/20/2024 GRAM STAIN gram positive QC slide PASS PASS Not Available [facility] ([facility]) [address] [place] [address] [place], [address], 07/20/2024 17:39:56 07/20/20 24 07/20/2024 GRAM STAIN gram negative QC slide PASS PASS Not Available [facility] ([facility]) [address] [place] [address] [place], [address], 07/20/2024 17:39:56 07/20/20 24 07/20/2024 GRAM STAIN note Unles s other duffy noted testi ng perfo rmed at: [facility] [address] [place] [address] Erwin osorio MD Not Available [facility] (Pre[facility]Op [facility]) [address] [place] [address] [place], [address], 07/20/2024 17:39:56 07/20/20 24 07/20/2024 CULTU RE BODY FLUID results [facility] 07-21 1153 No Growt h at 1 Day [facility] 07-22 920 No Growt h at [address] [facility] 07-24 545 No Growt h at 3 Days Not Available [facility] (Pre[facility]Op [facility]) [address] [facility] [place], [address], 07/24/2024 05:47:51 07/20/20 24 07/20/2024 CULTU RE BODY FLUID note Unles s other duffy noted testi ng perfo rmed at: [facility] [address] [place] [address] Erwin osorio MD Not Available [facility] (Pre[facility]Op [facility]) [address] [place] [address] [place], [address], 07/24/2024 05:47:51 08/03/20 24 08/03/2024 COMP METAB OLIC PANEL sodium 138 mmol/ L 137-14 7 Not Available [facility] (Pre[facility]Op [facility]) [address] [facility] [place], [address], 08/03/2024 13:25:24 08/03/20 24 08/03/2024 COMP METAB OLIC PANEL potassium 4.3 mmol/ L 3.5-5. 1 Not Available [facility] (Pre[facility]Op [facility]) [address] [facility] [place], [address], 08/03/2024 13:25:24 08/03/20 24 08/03/2024 COMP METAB OLIC PANEL chloride 101 mmol/ L 98-110 Not Available [facility] (Pre[facility]Op [facility]) [address] [place] [address] [place], [address], 08/03/2024 13:25:24 08/03/20 24 08/03/2024 COMP METAB OLIC PANEL carbon dioxide 28 mmol/ L 21-30 Not Available [facility] ([facility]Op [facility]) [address] [place] [address] [place], [address], 08/03/2024 13:25:24 08/03/20 24 08/03/2024 COMP METAB OLIC PANEL anion gap 9 mmol/ L 6-14 Not Available [facility] ([facility]Op [facility]) [address] [place] [address] [place], [address], 08/03/2024 13:25:24 08/03/20 24 08/03/2024 COMP METAB OLIC PANEL glucose 322 mg/dL 70-115 high Not Available [facility] ([facility]Op [facility]) [address] [place] [address] [place], [address], 08/03/2024 13:25:24 08/03/20 24 08/03/2024 COMP METAB OLIC PANEL BUN 22 mg/dL 7-17 high Not Available [facility] ([facility]Op [facility]) [address] [place] [address] [place], [address], 08/03/2024 13:25:24 08/03/20 24 08/03/2024 COMP METAB OLIC PANEL creatinine 1.0 mg/dL 0.5-1. 5 Not Available [facility] ([facility]) [address] [place] [address] [place], [address], 08/03/2024 13:25:24 08/03/20 24 08/03/2024 COMP METAB OLIC PANEL BUN/creatini ne ratio 22 ratio 10-20 high Not Available [facility] ([facility]) [address] [place] [address] [place], [address], 08/03/2024 13:25:24 08/03/20 24 08/03/2024 COMP METAB OLIC PANEL glom filtration rate 64 mL/mi n >60- Not Available [facility] ([facility]Op [facility]) [address] [place] [address] [place], [address], 08/03/2024 13:25:24 08/03/20 24 08/03/2024 COMP METAB OLIC PANEL osmolality (calculated) 303 mosmo l/kg 275-30 1 high OSMOL ALITY IS A CALCU LATIO N UTILI ZING THE SERUM /PLAS MA SODIU M, GLUCO SE AND UREA NITRO GEN (BUN) LEVEL S. FOR THE MOST ACCUR ATE RESUL T A MEASU RED SERUM OSMOL ALITY IS SUGGE STED. Not Available [facility] (Pre[facility]Op [facility]) [address] [place] [address] [place], [address], 08/03/2024 13:25:24 08/03/20 24 08/03/2024 COMP METAB OLIC PANEL total protein 6.7 g/dL 6.2-8. 2 Not Available [facility] (Pre[facility]Op [facility]) [address] [place] [address] [place], [address], 08/03/2024 13:25:24 08/03/20 24 08/03/2024 COMP METAB OLIC PANEL albumin 2.5 g/dL 3.5-5. 0 low Not Available [facility] (Pre[facility]Op [facility]) [address] [place] [address] [place], [address], 08/03/2024 13:25:24 08/03/20 24 08/03/2024 COMP METAB OLIC PANEL calcium 8.0 mg/dL 8.5-10 .8 low Not Available [facility] ([facility]Op [facility]) [address] [place] [address] [place], [address], 08/03/2024 13:25:24 08/03/20 24 08/03/2024 COMP METAB OLIC PANEL bilirubin total 3.2 mg/dL 0.2-1. 3 high Not Available [facility] (Pre[facility]Op [facility]) [address] [place] [address] [place], [address], 08/03/2024 13:25:24 08/03/20 24 08/03/2024 COMP METAB OLIC PANEL AST (SGOT) 49 IU/L 14-36 high Not Available [facility] (Pre[facility]Op [facility]) [address] [place] [address] [place], [address], 08/03/2024 13:25:24 08/03/2008/03/2024 COMP METAB OLIC PANEL ALT (SGPT) 21 IU/L 0-35 Pleas e note new refer ence inter tylor for ALT. Due to a recen t manuf actur er metho dolog y aleman e, the refer ence inter tylor for ALT is lower effec tive March 12, 2021. Not Available [facility] (Pre[facility]Op [facility]) [address] [place] [address] [place], [address], 08/03/2024 13:25:24 08/03/2008/03/2024 COMP METAB OLIC PANEL alk phosphatase 196 IU/L 38-126 high Not Available [facility] (Pre[facility]Op Clinic) [address] [place] [address] [place], [address], 08/03/2024 13:25:24 08/03/20 24 08/03/2024 COMP METAB OLIC PANEL note Unles s other duffy noted testi ng perfo rmed at: [facility] [address] [facility] [address] Erwin osorio MD Not Available [facility] (Pre[facility]Op [facility]) [address] [facility] [place], [address], 08/03/2024 13:25:24 08/08/20 24 08/08/2024 CELL COUNT body fluid count performed by: AUTOMA HEIDI COUNT Not Available [facility] (Pre[facility]Op [facility]) [address] [facility] [place], [address], 08/08/2024 16:18:59 08/08/20 24 08/08/2024 CELL COUNT source PERITO ROSMERY Not Available [facility] ([facility]) [address] [facility] [place], [address], 08/08/2024 16:18:59 08/08/20 24 08/08/2024 CELL COUNT color YELLOW clear Not Available [facility] ([facility]Op [facility]) [address] [place] [address] [place], [address], 08/08/2024 16:18:59 08/08/20 24 08/08/2024 CELL COUNT apperance CLOUDY clear Not Available [facility] ([facility]) [address] [place] [address] [place], [address], 08/08/2024 16:18:59 08/08/20 24 08/08/2024 CELL COUNT viscosity NORMAL normal Not Available [facility] ([facility]) [address] [place] [address] [place], [address], 08/08/2024 16:18:59 08/08/20 24 08/08/2024 CELL COUNT WBC 286 /uL Not Available [facility] ([facility]) [address] [place] [address] [place], [address], 08/08/2024 16:18:59 08/08/20 24 08/08/2024 CELL COUNT RBC 4000 /uL Not Available [facility] ([facility]) [address] [place] [address] [place], [address], 08/08/2024 16:18:59 08/08/20 24 08/08/2024 CELL COUNT polynuclear 12.6 % Not Available [facility] ([facility]) [address] [place] [address] [place], [address], 08/08/2024 16:18:59 08/08/20 24 08/08/2024 CELL COUNT mononuclear 87.4 % ALL COUNT S PERFO RMED ON HEMAC YTOME TER ARE DONE IN [facility]. Not Available [facility] ([facility]) [address] [place] [address] [place], [address], 08/08/2024 16:18:59 08/08/20 24 08/08/2024 CELL COUNT note Unles s other duffy noted testi ng perfo rmed at: [facility] [address] [place] [address] Erwin osorio MD Not Available [facility] ([facility]) [address] [place] [address] [place], [address], 08/08/2024 16:18:59 08/08/20 24 08/08/2024 CULTU RE BODY FLUID results B 08-09 824 No Growt h at 1 Day [facility] 08-10 851 No Growt h at 2 Days [facility] 08-11 843 No Growt h at 3 Days Not Available [facility] ([facility]) [address] [place] [address] [place], [address], 08/11/2024 08:44:47 08/08/20 24 08/08/2024 CULTU RE BODY FLUID note Unles s other duffy noted testi ng perfo rmed at: [facility] [address] [place] [address] Erwin osorio MD Not Available [facility] ([facility]) [address] [facility] [place], [address], 08/11/2024 08:44:47 08/08/20 24 08/08/2024 GRAM STAIN source PERITO ROSMERY Not Available [facility] ([facility]) [address] [facility] [place], [address], 08/09/2024 17:07:03 08/08/20 24 08/08/2024 GRAM STAIN organism #1 NO ORGANI SMS Not Available [facility] ([facility]) [address] [facility] [place], [address], 08/09/2024 17:07:03 08/08/20 24 08/08/2024 GRAM STAIN WBC NO WBC'S SEEN no WBC's seen Not Available [facility] ([facility]Op [facility]) [address] [place] [address] [place], [address], 08/09/2024 17:07:03 08/08/20 24 08/08/2024 GRAM STAIN yeast NONE SEEN none seen Not Available [facility] ([facility]) [address] [place] [address] [place], [address], 08/09/2024 17:07:03 08/08/20 24 08/08/2024 GRAM STAIN gram positive QC slide PASS PASS Not Available [facility] ([facility]) [address] [place] [address] [place], [address], 08/09/2024 17:07:03 08/08/20 24 08/08/2024 GRAM STAIN gram negative QC slide PASS PASS Not Available [facility] ([facility]) [address] [place] [address] [place], [address], 08/09/2024 17:07:03 08/08/20 24 08/08/2024 GRAM STAIN note Unles s other duffy noted testi ng perfo rmed at: [facility] [address] [place] [address] Erwin osorio MD Not Available [facility] ([facility]) [address] [facility] [place], [address], 08/09/2024 17:07:03 09/05/2009/05/2024 COMP METAB OLIC PANEL sodium 139 mmol/ L 137-14 7 Not Available [facility] ([facility]) [address] [place] [address] [place], [address], 09/05/2024 11:35:24 09/05/2009/05/2024 COMP METAB OLIC PANEL potassium 4.2 mmol/ L 3.5-5. 1 Not Available [facility] ([facility]) [address] [place] [address] [place], [address], 09/05/2024 11:35:24 09/05/2009/05/2024 COMP METAB OLIC PANEL chloride 107 mmol/ L 98-110 Not Available [facility] ([facility]) [address] [place] [address] [place], [address], 09/05/2024 11:35:24 09/05/20 24 09/05/2024 COMP METAB OLIC PANEL carbon dioxide 25 mmol/ L 21-30 Not Available [facility] ([facility]Op [facility]) [address] [place] [address] [place], [address], 09/05/2024 11:35:24 09/05/20 24 09/05/2024 COMP METAB OLIC PANEL anion gap 7 mmol/ L 6-14 Not Available [facility] ([facility]) [address] [place] [address] [place], [address], 09/05/2024 11:35:24 09/05/20 24 09/05/2024 COMP METAB OLIC PANEL glucose 195 mg/dL 70-115 high Not Available [facility] ([facility]) [address] [place] [address] [place], [address], 09/05/2024 11:35:24 09/05/20 24 09/05/2024 COMP METAB OLIC PANEL BUN 15 mg/dL 7-17 Not Available [facility] ([facility]) [address] [facility] [place], [address], 09/05/2024 11:35:24 09/05/20 24 09/05/2024 COMP METAB OLIC PANEL creatinine 0.8 mg/dL 0.5-1. 5 Not Available [facility] ([facility]Op [facility]) [address] [facility] [place], [address], 09/05/2024 11:35:24 09/05/20 24 09/05/2024 COMP METAB OLIC PANEL BUN/creatini ne ratio 19 ratio 10-20 Not Available [facility] ([facility]) [address] [place] [address] [place], [address], 09/05/2024 11:35:24 09/05/20 24 09/05/2024 COMP METAB OLIC PANEL glom filtration rate 83 mL/mi n >60- GFR LIMIT ATION : The eGFR equat ion CKD-E PI 2020 is not appli cable for pedia tric patie nts or great er than 90 years of age. The follo wing condi tions may alter the GFR resul t: extre mes in body size, malnu triti on or obesi ty, skele rodo muscl e disea se, parap legia or quadr ipleg ia, veget candido diet or rapid ly aleman ing kiney funct ion. Not Available [facility] ([facility]) [address] [place] [address] [place], [address], 09/05/2024 11:35:24 09/05/20 24 09/05/2024 COMP METAB OLIC PANEL osmolality (calculated) 295 mosmo l/kg 275-30 1 OSMOL ALITY IS A CALCU LATIO N UTILI ZING THE SERUM /PLAS MA SODIU M, GLUCO SE AND UREA NITRO GEN (BUN) LEVEL S. FOR THE MOST ACCUR ATE RESUL T A MEASU RED SERUM OSMOL ALITY IS SUGGE STED. Not Available [facility] ([facility]Op [facility]) [address] [place] [address] [place], [address], 09/05/2024 11:35:24 09/05/20 24 09/05/2024 COMP METAB OLIC PANEL total protein 7.4 g/dL 6.2-8. 2 Not Available [facility] ([facility]Op [facility]) [address] [facility] [place], [address], 09/05/2024 11:35:24 09/05/20 24 09/05/2024 COMP METAB OLIC PANEL albumin 2.7 g/dL 3.5-5. 0 low Not Available [facility] ([facility]) [address] [place] [address] [place], [address], 09/05/2024 11:35:24 09/05/20 24 09/05/2024 COMP METAB OLIC PANEL calcium 7.7 mg/dL 8.5-10 .8 low Not Available [facility] ([facility]) [address] [place] [address] [place], [address], 09/05/2024 11:35:24 09/05/20 24 09/05/2024 COMP METAB OLIC PANEL bilirubin total 5.6 mg/dL 0.2-1. 3 high Not Available [facility] ([facility]) [address] [place] [address] [place], [address], 09/05/2024 11:35:24 09/05/20 24 09/05/2024 COMP METAB OLIC PANEL AST (SGOT) 51 IU/L 14-36 high Not Available [facility] ([facility]) [address] [place] [address] [place], [address], 09/05/2024 11:35:24 09/05/20 24 09/05/2024 COMP METAB OLIC PANEL ALT (SGPT) 21 IU/L 0-35 Pleas e note new refer ence inter tylor for ALT. Due to a recen t manuf actur er metho dolog y aleman e, the refer ence inter tylor for ALT is lower effec tive March 12, 2021. Not Available [facility] ([facility]) [address] [place] [address] [place], [address], 09/05/2024 11:35:24 09/05/20 24 09/05/2024 COMP METAB OLIC PANEL alk phosphatase 156 IU/L 38-126 high Not Available [facility] [address] [facility] [place], [address], 09/05/2024 11:35:24 09/05/2009/05/2024 COMP METAB OLIC PANEL note Unles s other duffy noted testi ng perfo [facility]med at: [facility] [address] [place] [address] Erwin osorio MD Not Available [facility] ([facility]Op [facility]) [address] [place] [address] [place], [address], 09/05/2024 11:35:24 09/05/20 24 09/05/2024 CELL COUNT body fluid count performed by: AUTOMA HEIDI COUNT Not Available [facility] ([facility]) [address] [place] [address] [place], [address], 09/05/2024 16:39:59 09/05/2009/05/2024 CELL COUNT source PERITO ROSMERY Not Available [facility] ([facility]Op [facility]) [address] [place] [address] [place], [address], 09/05/2024 16:39:59 09/05/2009/05/2024 CELL COUNT color YELLOW clear Not Available [facility] ([facility]Op [facility]) [address] [place] [address] [place], [address], 09/05/2024 16:39:59 09/05/2009/05/2024 CELL COUNT apperance CLEAR clear Not Available [facility] ([facility]) [address] [place] [address] [place], [address], 09/05/2024 16:39:59 09/05/20 24 09/05/2024 CELL COUNT viscosity NORMAL normal Not Available [facility] ([facility]) [address] [place] [address] [place], [address], 09/05/2024 16:39:59 09/05/2009/05/2024 CELL COUNT WBC 180 /uL Not Available [facility] (Pre[facility]Op [facility]) [address] [place] [address] [place], [address], 09/05/2024 16:39:59 09/05/2009/05/2024 CELL COUNT RBC 2000 /uL Not Available [facility] (Pre[facility]Op [facility]) [address] [place] [address] [place], [address], 09/05/2024 16:39:59 09/05/2009/05/2024 CELL COUNT polynuclear 15 % Not Available [facility] (Pre[facility]Op [facility]) [address] [place] [address] [place], [address], 09/05/2024 16:39:59 09/05/2009/05/2024 CELL COUNT mononuclear 85 % ALL COUNT S PERFO RMED ON HEMAC YTOME TER ARE DONE IN [facility]. Not Available [facility] (Pre[facility]Op [facility]) [address] [place] [address] [place], [address], 09/05/2024 16:39:59 09/05/2009/05/2024 CELL COUNT note Unles s other duffy noted testi ng perfo rmed at: [facility] [address] [place] [address] Erwin osorio MD Not Available [facility] ([facility]Op [facility]) [address] [place] [address] [place], [address], 09/05/2024 16:39:59 09/05/2009/05/2024 GRAM STAIN source PERITO ROSMERY Not Available [facility] ([facility]Op [facility]) [address] [place] [address] [place], [address], 09/05/2024 17:36:46 09/05/2009/05/2024 GRAM STAIN organism #1 NO ORGANI SMS Not Available [facility] ([facility]Op [facility]) [address] [place] [address] [place], [address], 09/05/2024 17:36:46 09/05/20 24 09/05/2024 GRAM STAIN WBC NO WBC'S SEEN no WBC's seen Not Available [facility] (Pre-Op Clinic) [address] [place] [address] [place], [address], 09/05/2024 17:36:46 09/05/2009/05/2024 GRAM STAIN gram positive QC slide PASS PASS Not Available [facility] (Pre[facility]Op Clinic) [address] [place] [address] [place], [address], 09/05/2024 17:36:46 09/05/20 24 09/05/2024 GRAM STAIN gram negative QC slide PASS PASS Not Available [facility] (Pre[facility]Op Clinic) [address] [place] [address] [place], [address], 09/05/2024 17:36:46 09/05/2009/05/2024 GRAM STAIN note Unles s other duffy noted testi ng perfo rmed at: [facility] [address] [place] [address] Erwin osorio MD Not Available [facility] ([facility]Op [facility]) [address] [place] [address] [place], [address], 09/05/2024 17:36:46 09/05/20 24 09/05/2024 CULTU RE BODY FLUID results B 09-06 643 No Growt h at 1 Day [facility] 09-07 845 No Growt h at 2 Days [facility] 09-08 701 No Growt h at 3 Days Not Available [facility] (Pre[facility]Op Clinic) [address] [place] [address] [place], [address], 09/08/2024 07:03:16 09/05/20 24 09/05/2024 CULTU RE BODY FLUID note Unles s other duffy noted testi ng perfo rmed at: [facility] [address] [place] [address] Erwin osorio MD Not Available [facility] ([facility]Op [facility]) [address] [facility] [place], [address], 09/08/2024 07:03:16 09/12/20 24 09/12/2024 CELL COUNT body fluid count performed by: AUTOMA HEIDI COUNT Not Available [facility] ([facility]Op [facility]) [address] [place] [address] [place], [address], 09/12/2024 16:01:35 09/12/2009/12/2024 CELL COUNT source PERITO ROMSERY Not Available [facility] ([facility]) [address] [place] [address] [place], [address], 09/12/2024 16:01:35 09/12/2009/12/2024 CELL COUNT color YELLOW clear Not Available [facility] ([facility]Op [facility]) [address] [place] [address] [place], [address], 09/12/2024 16:01:35 09/12/2009/12/2024 CELL COUNT apperance CLEAR clear Not Available [facility] (Pre[facility]Op [facility]) [address] [place] [address] [place], [address], 09/12/2024 16:01:35 09/12/2009/12/2024 CELL COUNT viscosity NORMAL Q normal Not Available [facility] ([facility]Op [facility]) [address] [place] [address] [place], [address], 09/12/2024 16:01:35 09/12/2009/12/2024 CELL COUNT WBC 211 /uL Not Available [facility] ([facility]) [address] [place] [address] [place], [address], 09/12/2024 16:01:35 09/12/20 24 09/12/2024 CELL COUNT RBC 2000 /uL Not Available [facility] ([facility]) [address] [facility] [place], [address], 09/12/2024 16:01:35 09/12/2009/12/2024 CELL COUNT polynuclear 9 % Not Available [facility] ([facility]Op [facility]) [address] [place] [address] [place], [address], 09/12/2024 16:01:35 09/12/2009/12/2024 CELL COUNT mononuclear 91 % ALL COUNT S PERFO RMED ON HEMAC YTOME TER ARE DONE IN [facility]. Not Available [facility] ([facility]) [address] [place] [address] [place], [address], 09/12/2024 16:01:35 09/12/2009/12/2024 CELL COUNT note Unles s other duffy noted testi ng perfo rmed at: [facility] [address] [place] [address] Erwin osorio MD Not Available [facility] ([facility]) [address] [place] [address] [place], [address], 09/12/2024 16:01:35 09/12/20 24 09/12/2024 GRAM STAIN note Unles s other duffy noted testi ng perfo rmed at: [facility] [address] [place] [address] Erwin osorio MD Not Available [facility] ([facility]) [address] [place] [address] [place], [address], 09/13/2024 01:17:27 09/12/2009/13/2024 GRAM STAIN source PERITO ROSMERY Not Available [facility] ([facility]) [address] [place] [address] [place], [address], 09/13/2024 01:17:27 09/12/20 24 09/13/2024 GRAM STAIN organism #1 NO ORGANI SMS Not Available [facility] ([facility]) [address] [place] [address] [place], [address], 09/13/2024 01:17:27 09/12/2009/13/2024 GRAM STAIN WBC NO WBC'S SEEN no WBC's seen Not Available [facility] ([facility]) [address] [place] [address] [place], [address], 09/13/2024 01:17:27 09/12/2009/13/2024 GRAM STAIN yeast NONE SEEN none seen Not Available [facility] ([facility]) [address] [place] [address] [place], [address], 09/13/2024 01:17:27 09/12/2009/13/2024 GRAM STAIN gram positive QC slide PASS PASS Not Available [facility] ([facility]Op [facility]) [address] [place] [address] [place], [address], 09/13/2024 01:17:27 09/12/2009/13/2024 GRAM STAIN gram negative QC slide PASS PASS Not Available [facility] ([facility]Op [facility]) [address] [place] [address] [place], [address], 09/13/2024 01:17:27 09/12/2009/12/2024 CULTU RE BODY FLUID results [facility] 09-13 1331 No Growt h at 1 Day [facility] 09-14 905 No Growt h at 2 Days [facility] 09-15 643 No Growt h at 3 Days Not Available [facility] ([facility]Op [facility]) [address] [place] [address] [place], [address], 09/15/2024 06:44:53 09/12/2009/12/2024 CULTU RE BODY FLUID note Unles s other duffy noted testi ng perfo rmed at: [facility] [address] [place] [address] Erwin osorio MD Not Available [facility] ([facility]) [address] [place] [address] [place], [address], 09/15/2024 06:44:53 09/19/20 24 09/19/2024 PT WITH INR AND PTT protime 14.9 secon ds 9.0-12 .0 high Not Available [facility] ([facility]) [address] [place] [address] [place], [address], 09/19/2024 13:40:24 09/19/20 24 09/19/2024 PT WITH INR AND PTT INR 1.5 2.0-3. 0 low MONIT OR COUMA DIN THERA PY WITH INR VALUE ONLY. * THERA PEUTI C RANGE S FOR INR 2.0 - 3.0 USUAL THERA PEUTI C RANGE 2.5 - 3.5 FOR PATIE NTS WITH A HISTO RY OF MULTI PLE DEEP VEIN THROM BOLYT IC EVENT S OR MECHA NICAL HEART VALVE . Not Available [facility] ([facility]Op [facility]) [address] [place] [address] [place], [address], 09/19/2024 13:40:24 09/19/20 24 09/19/2024 PT WITH INR AND PTT partial thromb time 29.6 secon ds 20-34 THE EQUIV ALENT APTT VALUE S FOR THERA PEUTI C RANGE OF HEPAR IN AT 0.3 TO O.5 IU/mL ARE 51.8 TO 80.0 SECON DS. Not Available [facility] ([facility]Op [facility]) [address] [place] [address] [place], [address], 09/19/2024 13:40:24 09/19/20 24 09/19/2024 PT WITH INR AND PTT note Unles s other duffy noted testi ng perfo rmed at: [facility] [address] [place] [address] Erwin osorio MD Not Available [facility] ([facility]) [address] [facility] [place], [address], 09/19/2024 13:40:24 09/19/20 24 09/19/2024 COMP METAB OLIC PANEL sodium 137 mmol/ L 137-14 7 Not Available [facility] ([facility]Op [facility]) [address] [place] [address] [place], [address], 09/19/2024 13:59:10 09/19/20 24 09/19/2024 COMP METAB OLIC PANEL potassium 3.7 mmol/ L 3.5-5. 1 Not Available [facility] ([facility]) [address] [place] [address] [place], [address], 09/19/2024 13:59:10 09/19/20 24 09/19/2024 COMP METAB OLIC PANEL chloride 104 mmol/ L 98-110 Not Available [facility] ([facility]) [address] [place] [address] [place], [address], 09/19/2024 13:59:10 09/19/20 24 09/19/2024 COMP METAB OLIC PANEL carbon dioxide 27 mmol/ L 21-30 Not Available [facility] ([facility]) [address] [place] [address] [place], [address], 09/19/2024 13:59:10 09/19/20 24 09/19/2024 COMP METAB OLIC PANEL anion gap 6 mmol/ L 6-14 Not Available [facility] ([facility]) [address] [place] [address] [place], [address], 09/19/2024 13:59:10 09/19/20 24 09/19/2024 COMP METAB OLIC PANEL glucose 190 mg/dL 70-115 high Not Available [facility] ([facility]) [address] [place] [address] [place], [address], 09/19/2024 13:59:10 09/19/20 24 09/19/2024 COMP METAB OLIC PANEL BUN 22 mg/dL 7-17 high Not Available [facility] ([facility]Op [facility]) [address] [facility] [place], [address], 09/19/2024 13:59:10 09/19/20 24 09/19/2024 COMP METAB OLIC PANEL creatinine 0.8 mg/dL 0.5-1. 5 Not Available [facility] ([facility]) [address] [facility] [place], [address], 09/19/2024 13:59:10 09/19/20 24 09/19/2024 COMP METAB OLIC PANEL BUN/creatini ne ratio 28 10-20 high Not Available [facility] ([facility]) [address] [place] [address] [place], [address], 09/19/2024 13:59:10 09/19/20 24 09/19/2024 COMP METAB OLIC PANEL glom filtration rate 83 mL/mi n >60- GFR LIMIT ATION : The eGFR equat ion CKD-E PI 2020 is not appli cable for pedia tric patie nts or great er than 90 years of age. The follo wing condi tions may alter the GFR resul t: extre mes in body size, malnu triti on or obesi ty, skele rodo muscl e disea se, parap legia or quadr ipleg ia, veget candido diet or rapid ly aleman ing kiney funct ion. Not Available [facility] ([facility]) [address] [place] [address] [place], [address], 09/19/2024 13:59:10 09/19/20 24 09/19/2024 COMP METAB OLIC PANEL osmolality (calculated) 294 mosmo l/kg 275-30 1 OSMOL ALITY IS A CALCU LATIO N UTILI ZING THE SERUM /PLAS MA SODIU M, GLUCO SE AND UREA NITRO GEN (BUN) LEVEL S. FOR THE MOST ACCUR ATE RESUL T A MEASU RED SERUM OSMOL ALITY IS SUGGE STED. Not Available [facility] ([facility]) [address] [place] [address] [place], [address], 09/19/2024 13:59:10 09/19/20 24 09/19/2024 COMP METAB OLIC PANEL total protein 7.5 g/dL 6.2-8. 2 Not Available [facility] ([facility]) [address] [place] [address] [place], [address], 09/19/2024 13:59:10 09/19/20 24 09/19/2024 COMP METAB OLIC PANEL albumin 2.9 g/dL 3.5-5. 0 low Not Available [facility] ([facility]) [address] [place] [address] [place], [address], 09/19/2024 13:59:10 09/19/20 24 09/19/2024 COMP METAB OLIC PANEL calcium 7.8 mg/dL 8.5-10 .8 low Not Available [facility] ([facility]) [address] [place] [address] [place], [address], 09/19/2024 13:59:10 09/19/20 24 09/19/2024 COMP METAB OLIC PANEL bilirubin total 4.3 mg/dL 0.2-1. 3 high Not Available [facility] ([facility]) [address] [place] [address] [place], [address], 09/19/2024 13:59:10 09/19/20 24 09/19/2024 COMP METAB OLIC PANEL AST (SGOT) 39 IU/L 14-36 high Not Available [facility] ([facility]) [address] [place] [address] [place], [address], 09/19/2024 13:59:10 09/19/20 24 09/19/2024 COMP METAB OLIC PANEL ALT (SGPT) 19 IU/L 0-35 Pleas e note new refer ence inter tylor for ALT. Due to a recen t manuf actur er metho dolog y aleman e, the refer ence inter tylor for ALT is lower effec tive March 12, 2021. Not Available [facility] ([facility]) [address] [place] [address] [place], [address], 09/19/2024 13:59:10 09/19/20 24 09/19/2024 COMP METAB OLIC PANEL alk phosphatase 243 IU/L 38-126 high Not Available [facility] ([facility]Op [facility]) [address] [facility] [place], [address], 09/19/2024 13:59:10 09/19/20 24 09/19/2024 COMP METAB OLIC PANEL note Unles s other duffy noted testi ng perfo rmed at: [facility] [address] [place] [address] Erwin osorio MD Not Available [facility] ([facility]) [address] [facility] [place], [address], 09/19/2024 13:59:10 09/19/20 24 09/19/2024 CBC NO DIFF (HEMO GRAM) WBC 5.68 K/uL 4.5-11 .5 Not Available [facility] (Pre[facility]Op Clinic) [address] [place] [address] [place], [address], 09/19/2024 14:04:34 09/19/20 24 09/19/2024 CBC NO DIFF (HEMO GRAM) RBC 3.28 M/uL 4.0-5. 4 low Not Available [facility] ([facility]Op [facility]) [address] [place] [address] [place], [address], 09/19/2024 14:04:34 09/19/20 24 09/19/2024 CBC NO DIFF (HEMO GRAM) HGB 10.7 g/dL 12.0-1 5.0 low Not Available [facility] ([facility]) [address] [place] [address] [place], [address], 09/19/2024 14:04:34 09/19/20 24 09/19/2024 CBC NO DIFF (HEMO GRAM) HCT 32.3 % 35-49 low Not Available [facility] ([facility]) [address] [place] [address] [place], [address], 09/19/2024 14:04:34 09/19/20 24 09/19/2024 CBC NO DIFF (HEMO GRAM) MCV 98.5 fL 80.0-1 00.0 Not Available [facility] ([facility]) [address] [facility] [place], [address], 09/19/2024 14:04:34 09/19/20 24 09/19/2024 CBC NO DIFF (HEMO GRAM) MCH 32.6 pg 26.0-3 2.0 high Not Available [facility] ([facility]) [address] [place] [address] [place], [address], 09/19/2024 14:04:34 09/19/20 24 09/19/2024 CBC NO DIFF (HEMO GRAM) MCHC 33.1 g/dL 32.0-3 6.0 Not Available [facility] ([facility]) [address] [place] [address] [place], [address], 09/19/2024 14:04:34 09/19/20 24 09/19/2024 CBC NO DIFF (HEMO GRAM) RDW 14.6 % 11.5-1 4.5 high Not Available [facility] ([facility]) [address] [place] [address] [place], [address], 09/19/2024 14:04:34 09/19/20 24 09/19/2024 CBC NO DIFF (HEMO GRAM) platelet count 90 K/uL 142-42 4 low Not Available [facility] ([facility]) [address] [place] [address] [place], [address], 09/19/2024 14:04:34 09/19/20 24 09/19/2024 CBC NO DIFF (HEMO GRAM) MPV 10.6 fL 6.8-10 .2 high Not Available [facility] ([facility]) [address] [place] [address] [place], [address], 09/19/2024 14:04:34 09/19/20 24 09/19/2024 CBC NO DIFF (HEMO GRAM) note Unles s other duffy noted testi ng perfo rmed at: [facility] [address] [facility] [place] [address] Erwin osorio MD Not Available [facility] ([facility]) [address] [facility] [place], [address], 09/19/2024 14:04:34 09/19/20 24 09/19/2024 UA WITH CULTU RE IF INDIC ATED color JOANNA yellow Not Available [facility] ([facility]) [address] [place] [address] [place], [address], 09/19/2024 17:37:07 09/19/20 24 09/19/2024 UA WITH CULTU RE IF INDIC ATED appearance HAZY clear Not Available [facility] ([facility]Op [facility]) [address] [facility] [place], [address], 09/19/2024 17:37:07 09/19/20 24 09/19/2024 UA WITH CULTU RE IF INDIC ATED glucose NEGATI VE negati ve Not Available [facility] ([facility]) [address] [place] [address] [place], [address], 09/19/2024 17:37:07 09/19/20 24 09/19/2024 UA WITH CULTU RE IF INDIC ATED bilirubin 2+ negati ve Not Available [facility] ([facility]) [address] [place] [address] [place], [address], 09/19/2024 17:37:07 09/19/20 24 09/19/2024 UA WITH CULTU RE IF INDIC ATED ictotest (bili confirmation ) POSITI VE negati ve delta Not Available [facility] ([facility]) [address] [place] [address] [place], [address], 09/19/2024 17:37:07 10/30/09/19/2024 UA WITH CULTU RE IF INDIC ATED ketone TRACE negati ve Not Available [facility] ([facility]) [address] [facility] [place], [address], 09/19/2024 17:37:07 09/19/20 24 09/19/2024 UA WITH CULTU RE IF INDIC ATED specific gravity 1.025 1.005- 1.025 Not Available [facility] ([facility]) [address] [facility] [place], [address], 09/19/2024 17:37:07 09/19/20 24 09/19/2024 UA WITH CULTU RE IF INDIC ATED blood 2+ negati ve Not Available [facility] ([facility]) [address] [facility] [place], [address], 09/19/2024 17:37:07 09/19/20 24 09/19/2024 UA WITH CULTU RE IF INDIC ATED pH 5.5 5.0-8. 0 Not Available [facility] ([facility]) [address] [facility] [place], [address], 09/19/2024 17:37:07 09/19/20 24 09/19/2024 UA WITH CULTU RE IF INDIC ATED protein 1+ negati ve Not Available [facility] ([facility]) [address] [facility] [place], [address], 09/19/2024 17:37:07 09/19/20 24 09/19/2024 UA WITH CULTU RE IF INDIC ATED urobilinogen 2.0 E.U./ dL 0.0 - 0.2 Not Available [facility] ([facility]) [address] [facility] [place], [address], 09/19/2024 17:37:07 09/19/20 24 09/19/2024 UA WITH CULTU RE IF INDIC ATED nitrite POSITI VE negati ve delta Not Available [facility] ([facility]) [address] [facility] [place], [address], 09/19/2024 17:37:07 09/19/20 24 09/19/2024 UA WITH CULTU RE IF INDIC ATED leukocyte esterase TRACE negati ve Not Available [facility] ([facility]) [address] [place] [address] [place], [address], 09/19/2024 17:37:07 09/19/20 24 09/19/2024 UA WITH CULTU RE IF INDIC ATED culture indicated? INDICA HEIDI Carrion alena met for urine cultu re. Cultu re Order ed. Not Available [facility] ([facility]) [address] [place] [address] [place], [address], 09/19/2024 17:37:07 09/19/20 24 09/19/2024 UA WITH CULTU RE IF INDIC ATED urine microscopic YES UAM order aleman ed to UA due to need of micro scopi c testi ng Not Available [facility] ([facility]) [address] [place] [address] [place], [address], 09/19/2024 17:37:07 09/19/20 24 09/19/2024 UA WITH CULTU RE IF INDIC ATED RBC 10-15 none seen/h pf Not Available [facility] ([facility]) [address] [place] [address] [place], [address], 09/19/2024 17:37:07 09/19/20 24 09/19/2024 UA WITH CULTU RE IF INDIC ATED WBC 15-20 none seen/h pf Not Available [facility] ([facility]) [address] [place] [address] [place], [address], 09/19/2024 17:37:07 09/19/20 24 09/19/2024 UA WITH CULTU RE IF INDIC ATED epithelial cell 2-5 none seen Not Available [facility] ([facility]) [address] [place] [address] [place], [address], 09/19/2024 17:37:07 09/19/20 24 09/19/2024 UA WITH CULTU RE IF INDIC ATED bacteria 3+ negati ve Not Available [facility] ([facility]) [address] [facility] [place], [address], 09/19/2024 17:37:07 09/19/20 24 09/19/2024 UA WITH CULTU RE IF INDIC ATED note Unles s other duffy noted testi ng [facility] [address] [facility] [place] [address] Erwin osorio MD Not Available [facility] ([facility]) [address] [facility] [place], [address], 09/19/2024 17:37:07 09/19/20 24 09/19/2024 CELL COUNT body fluid count performed by: AUTOMA HEIDI COUNT Not Available [facility] ([facility]) [address] [place] [address] [place], [address], 09/19/2024 17:42:34 09/19/20 24 09/19/2024 CELL COUNT source ASCITE S Not Available [facility] ([facility]) [address] [place] [address] [place], [address], 09/19/2024 17:42:34 09/19/20 24 09/19/2024 CELL COUNT color YELLOW clear Not Available [facility] ([facility]) [address] [place] [address] [place], [address], 09/19/2024 17:42:34 09/19/20 24 09/19/2024 CELL COUNT apperance CLOUDY clear Not Available [facility] ([facility]) [address] [place] [address] [place], [address], 09/19/2024 17:42:34 09/19/20 24 09/19/2024 CELL COUNT volume 7800 cc Not Available [facility] ([facility]) [address] [place] [address] [place], [address], 09/19/2024 17:42:34 09/19/20 24 09/19/2024 CELL COUNT viscosity NORMAL normal Not Available [facility] ([facility]) [address] [place] [address] [place], [address], 09/19/2024 17:42:34 09/19/20 24 09/19/2024 CELL COUNT WBC 181 /uL Not Available [facility] ([facility]) [address] [place] [address] [place], [address], 09/19/2024 17:42:34 09/19/20 24 09/19/2024 CELL COUNT RBC 3000 /uL Not Available [facility] ([facility]) [address] [place] [address] [place], [address], 09/19/2024 17:42:34 09/19/20 24 09/19/2024 CELL COUNT polynuclear 13.8 % Not Available [facility] ([facility]) [address] [place] [address] [place], [address], 09/19/2024 17:42:34 09/19/20 24 09/19/2024 CELL COUNT mononuclear 86.2 % ALL COUNT S PERFO RMED ON HEMAC YTOME TER ARE DONE IN [facility]. Not Available [facility] ([facility]) [address] [place] [address] [place], [address], 09/19/2024 17:42:34 09/19/20 24 09/19/2024 CELL COUNT note Unles s other duffy noted testi ng perfo rmed at: [facility] [address] [place] [address] Erwin osorio MD Not Available [facility] (Pre-Op [facility]) [address] [place] [address] [place], [address], 09/19/2024 17:42:34 09/19/20 24 09/19/2024 CULTU RE URINE W PRESU MP ID results SMB 09-20 808 [place] te:1 >100, 000 Colon y Count Gram Negat adina Rods Not Available [facility] (Pre-Op [facility]) [address] [place] [address] [place], [address], 09/20/2024 08:10:41 09/19/20 24 09/19/2024 CULTU RE URINE W PRESU MP ID note Unles s other duffy noted testi ng perfo rmed at: [facility] [address] [place] [address] Erwin osorio MD Not Available [facility] (Pre-Op Clinic) [address] [place] [address] [place], [address], 09/20/2024 08:10:41 09/19/20 24 09/19/2024 CULTU RE BODY FLUID results [facility] 09-20 746 No Growt h at 1 Day [facility] 09-21 906 No Growt h at 2 Days [facility] 09-22 857 No Growt h at 3 Days Not Available [facility] (Pre-Op Clinic) [address] [place] [address] [place], [address], 09/22/2024 08:58:51 09/19/20 24 09/19/2024 CULTU RE BODY FLUID note Unles s other duffy noted testi ng perfo rmed at: [facility] [address] [place] [address] Erwin osorio MD Not Available [facility] (Pre-Op Clinic) [address] [place] [address] [place], [address], 09/22/2024 08:58:51 09/19/20 24 09/19/2024 GRAM STAIN source PERITO ROSMERY Not Available [facility] (Pre-Op Clinic) [address] [place] [address] [place], [address], 09/19/2024 19:36:53 09/19/20 24 09/19/2024 GRAM STAIN organism #1 NO ORGANI SMS Not Available [facility] (Pre-Op Clinic) [address] [facility] [place], [address], 09/19/2024 19:36:53 09/19/20 24 09/19/2024 GRAM STAIN WBC FEW no WBC's seen Not Available [facility] (Pre-Op Clinic) [address] [facility] [place], [address], 09/19/2024 19:36:53 09/19/20 24 09/19/2024 GRAM STAIN yeast NONE SEEN none seen Not Available [facility] (Pre-Op Clinic) [address] [facility] [place], [address], 09/19/2024 19:36:53 09/19/20 24 09/19/2024 GRAM STAIN gram positive QC slide PASS PASS Not Available [facility] (Pre-Op Clinic) [address] [facility] [place], [address], 09/19/2024 19:36:53 09/19/20 24 09/19/2024 GRAM STAIN gram negative QC slide PASS PASS Not Available [facility] (Pre-Op Clinic) [address] [facility] [place], [address], 09/19/2024 19:36:53 09/19/20 24 09/19/2024 GRAM STAIN note Unles s other duffy noted testi ng perfo rmed at: [facility] [address] [place] [address] Erwin osorio MD Not Available [facility] (Pre-Op Clinic) [address] [facility] [place], [address], 09/19/2024 19:36:53 09/19/20 24 09/19/2024 ALPHA FETOP ROTEI N TUMOR MARKE R note Unles s other duffy noted testi ng perfo rmed at: [facility] [address] [place] [address] Erwin osorio MD Not Available [facility] (Pre-Op Clinic) [address] [facility] [place], [address], 09/20/2024 08:23:35 09/19/20 24 09/20/2024 ALPHA FETOP ROTEI N TUMOR MARKE R AFP, serum (tumor marker) 3.3 NG/mL 0.0-9. 2 Calista Diagn ostic s Elect calista milum inesc ence Immun oassa y (ECLI A) . Value s obtai kayy with diffe rent assay metho ds or kits canno t be used inter aleman eably . Resul ts canno t be inter prete d as absol ewiiaapaayp evide nce of the prese nce or absen ce of malig nant disea se. . This test is not inter preta ble in pregn ant femal es. Perfo rmed at: - [facility] [address] [facility], [place] [address] Lab Direc tor: Jose ramírez PhD, Phone : [phone] Not Available [facility] (Pre-Op Clinic) [address] [place] [address] [place], [address], 09/20/2024 08:23:35 09/19/20 24 09/19/2024 CULTU RE URINE W PRESU MP ID culur ===== ===== ===== ===== ===== ===== ===== ===== ===== ===== ===== ===== ===== ===== ===== ===== ===== ===== ===== ===== ===== ===== ===== ===== CULTU RE NO.: [id number] Exam Statu s: Final Exam Type: CULTU RE URINE W PRESU ===== ===== ===== ===== ===== ===== ===== ===== ===== ===== ===== ===== ===== ===== ===== ===== ===== ===== ===== ===== ===== ===== ===== ===== Cultu re Repor t: Organ ism #01 Esche mateo a coli (ESCC OL) Antib iotic s ESCCO L Achie vable Achie vable (01) Dosag e Serum Level Urine Level mcg/m l mcg/m l Amika salty <=8 S 007A Ampic illin >16 R 007A Ampic illin /Sulb actam 16/8 I 007A Aztre onam <=2 S 007A Cefep jovanna <=1 S 007A Cefta zidim e <=2 S 007A Ceftr iaxon e <=1 S 007A Cipro floxa salty >2 R 007A CARBR S 007A Ertap enem <=0.2 5 S 007A ESBL NEG N 007A Genta micin <=2 S 007A Levof loxac in >4 R 007A Merop enem <=0.5 S 007A Nitro furan toin <=16 S 007A Piper acill in/Ta zobac <=2/4 S 007A Tetra cycli ne <=2 S 007A Tobra mycin <=2 S 007A Trime thopr im/Clement lfame <=0.5 / S 007A SMB 09-20 808 [place] te:1 >100, 000 Colon y Count Gram Negat adina Rods Not Available [facility] (Pre-Op Clinic) [address] [place] [address] [place], [address], 09/21/2024 07:38:56 09/19/20 24 09/19/2024 CULTU RE URINE W PRESU MP ID note Unles s other duffy noted testi ng perfo rmed at: [facility] [address] [place] [address] Erwin osorio MD Not Available [facility] (Pre-Op Clinic) [address] [place] [address] [place], [address], 09/21/2024 07:38:56 09/26/20 24 09/26/2024 CELL COUNT body fluid count performed by: AUTOMA HEIDI COUNT Not Available [facility] (Pre-Op Clinic) [address] [facility] [place], [address], 09/26/2024 18:31:52 09/26/20 24 09/26/2024 CELL COUNT source ASCITE S Not Available [facility] (Pre-Op Clinic) [address] [facility] [place], [address], 09/26/2024 18:31:52 09/26/20 24 09/26/2024 CELL COUNT color JOANNA clear Not Available [facility] (Pre-Op Clinic) [address] [place] [address] [place], [address], 09/26/2024 18:31:52 09/26/20 24 09/26/2024 CELL COUNT apperance CLOUDY clear Not Available [facility] (Pre-Op Clinic) [address] [place] [address] [place], [address], 09/26/2024 18:31:52 09/26/20 24 09/26/2024 CELL COUNT volume 8400 cc Not Available [facility] (Pre-Op Clinic) [address] [place] [address] [place], [address], 09/26/2024 18:31:52 09/26/20 24 09/26/2024 CELL COUNT viscosity NORMAL normal Not Available [facility] (Pre-Op Clinic) [address] [place] [address] [place], [address], 09/26/2024 18:31:52 09/26/20 24 09/26/2024 CELL COUNT WBC 155 /uL Not Available [facility] (Pre-Op Clinic) [address] [place] [address] [place], [address], 09/26/2024 18:31:52 09/26/20 24 09/26/2024 CELL COUNT RBC 3000 /uL Not Available [facility] (Pre-Op Clinic) [address] [place] [address] [place], [address], 09/26/2024 18:31:52 09/26/20 24 09/26/2024 CELL COUNT polynuclear 12 % Not Available [facility] (Pre-Op Clinic) [address] [place] [address] [place], [address], 09/26/2024 18:31:52 09/26/20 24 09/26/2024 CELL COUNT mononuclear 88 % ALL COUNT S PERFO RMED ON HEMAC YTOME TER ARE DONE IN [facility]. Not Available [facility] (Pre-Op Clinic) [address] [place] [address] [place], [address], 09/26/2024 18:31:52 09/26/20 24 09/26/2024 CELL COUNT note Unles s other duffy noted testi ng perfo [facility]med at: [facility] [address] [place] [address] Erwin osorio MD Not Available [facility] (Pre-Op Clinic) [address] [place] [address] [place], [address], 09/26/2024 18:31:52 09/26/20 24 09/26/2024 GRAM STAIN source PERITO ROSMERY Not Available [facility] (Pre-Op Clinic) [address] [place] [address] [place], [address], 09/26/2024 20:28:19 09/26/20 24 09/26/2024 GRAM STAIN organism #1 NO ORGANI SMS Not Available [facility] (Pre-Op Clinic) [address] [place] [address] [place], [address], 09/26/2024 20:28:19 09/26/20 24 09/26/2024 GRAM STAIN WBC NO WBC'S SEEN no WBC's seen Not Available [facility] (Pre-Op Clinic) [address] [place] [address] [place], [address], 09/26/2024 20:28:19 09/26/20 24 09/26/2024 GRAM STAIN yeast NONE SEEN none seen Not Available [facility] (Pre-Op Clinic) [address] [place] [address] [place], [address], 09/26/2024 20:28:19 09/26/20 24 09/26/2024 GRAM STAIN gram positive QC slide PASS PASS Not Available [facility] (Pre-Op Clinic) [address] [place] [address] [place], [address], 09/26/2024 20:28:19 09/26/20 24 09/26/2024 GRAM STAIN gram negative QC slide PASS PASS Not Available [facility] (Pre-Op Clinic) [address] [place] [address] [place], [address], 09/26/2024 20:28:19 09/26/20 24 09/26/2024 GRAM STAIN note Edith olmstead duffy noted testi ng perfo rmed at: [facility] [address] [place] [address] Erwin osorio MD Not Available [facility] (Pre-Op Clinic) [address] [place] [address] [place], [address], 09/26/2024 20:28:19 09/26/20 24 09/26/2024 CULTU RE BODY FLUID results [facility] 09-27 1325 No Growt h at 1 Day [facility] 09-28 943 No Growt h at 2 Days [facility] 09-29 927 No Growt h at 3 Days Not Available [facility] (Pre-Op Clinic) [address] [place] [address] [place], [address], 09/29/2024 09:29:35 09/26/20 24 09/26/2024 CULTU RE BODY FLUID note Unles s other duffy noted testi ng perfo rmed at: [facility] [address] [place] [address] Erwin osorio MD Not Available [facility] (Pre-Op Clinic) [address] [place] [address] [place], [address], 09/29/2024 09:29:35 10/03/20 24 10/03/2024 CELL COUNT body fluid count performed by: AUTOMA HEIDI COUNT Not Available [facility] (Pre-Op Clinic) [address] [facility] [place], [address], 10/03/2024 14:55:47 10/03/20 24 10/03/2024 CELL COUNT source PERITO ROSMERY Not Available [facility] (Pre-Op Clinic) [address] [place] [address] [place], [address], 10/03/2024 14:55:47 10/03/2010/03/2024 CELL COUNT color YELLOW clear Not Available [facility] (Pre-Op Clinic) [address] [place] [address] [place], [address], 10/03/2024 14:55:47 10/03/20 24 10/03/2024 CELL COUNT apperance CLEAR clear Not Available [facility] (Pre-Op Clinic) [address] [place] [address] [place], [address], 10/03/2024 14:55:47 10/03/20 24 10/03/2024 CELL COUNT viscosity NORMAL normal Not Available [facility] (Pre-Op Clinic) [address] [place] [address] [place], [address], 10/03/2024 14:55:47 10/03/20 24 10/03/2024 CELL COUNT WBC 243 /uL Not Available [facility] (Pre-Op Clinic) [address] [place] [address] [place], [address], 10/03/2024 14:55:47 10/03/20 24 10/03/2024 CELL COUNT RBC 4000 /uL Not Available [facility] (Pre-Op Clinic) [address] [place] [address] [place], [address], 10/03/2024 14:55:47 10/03/20 24 10/03/2024 CELL COUNT polynuclear 13.6 % Not Available [facility] (Pre-Op Clinic) [address] [place] [address] [place], [address], 10/03/2024 14:55:47 10/03/20 24 10/03/2024 CELL COUNT mononuclear 86.4 % ALL COUNT S PERFO RMED ON HEMAC YTOME TER ARE DONE IN [facility]. Not Available [facility] (Pre-Op Clinic) [address] [facility] [place], [address], 10/03/2024 14:55:47 10/03/20 24 10/03/2024 CELL COUNT note Unles s other duffy noted testi ng perfo rmed at: [facility] [address] [place] [address] Erwin osorio MD Not Available [facility] (Pre-Op Clinic) [address] [place] [address] [place], [address], 10/03/2024 14:55:47 10/03/20 24 10/03/2024 GRAM STAIN source PERITO ROSMERY Not Available [facility] (Pre-Op Clinic) [address] [place] [address] [place], [address], 10/03/2024 16:19:09 10/03/20 24 10/03/2024 GRAM STAIN organism #1 NO ORGANI SMS Not Available [facility] (Pre-Op Clinic) [address] [place] [address] [place], [address], 10/03/2024 16:19:09 10/03/20 24 10/03/2024 GRAM STAIN WBC NO WBC'S SEEN no WBC's seen Not Available [facility] (Pre-Op Clinic) [address] [place] [address] [place], [address], 10/03/2024 16:19:09 10/03/20 24 10/03/2024 GRAM STAIN gram positive QC slide PASS PASS Not Available [facility] (Pre-Op Clinic) [address] [place] [address] [place], [address], 10/03/2024 16:19:09 10/03/20 24 10/03/2024 GRAM STAIN gram negative QC slide PASS PASS Not Available [facility] (Pre-Op Clinic) [address] [facility] [place], [address], 10/03/2024 16:19:09 10/03/20 24 10/03/2024 GRAM STAIN note Unles s other duffy noted testi ng perfo rmed at: [facility] [address] [place] [address] Erwin osorio MD Not Available [facility] (Pre-Op Clinic) [address] [facility] [place], [address], 10/03/2024 16:19:09 10/03/20 24 10/03/2024 CULTU RE BODY FLUID results [facility] 10-04 815 No Growt h at 1 Day [facility] 10-05 926 No Growt h at 2 Days [facility] 10-06 850 No Growt h at 3 Days Not Available [facility] (Pre-Op Clinic) [address] [place] [address] [place], [address], 10/06/2024 08:51:22 10/03/20 24 10/03/2024 CULTU RE BODY FLUID note Unles s other duffy noted testi ng perfo rmed at: [facility] [address] [place] [address] Erwin osorio MD Not Available [facility] (Pre-Op Clinic) [address] [facility] [place], [address], 10/06/2024 08:51:22 10/10/20 24 10/10/2024 CELL COUNT body fluid count performed by: AUTOMA HEIDI COUNT Not Available [facility] (Pre-Op Clinic) [address] [place] [address] [place], [address], 10/10/2024 19:08:40 10/10/20 24 10/10/2024 CELL COUNT source ABDOMI NAL Not Available [facility] (Pre-Op Clinic) [address] [place] [address] [place], [address], 10/10/2024 19:08:40 10/10/20 24 10/10/2024 CELL COUNT color JOANNA clear Not Available [facility] (Pre-Op Clinic) [address] [place] [address] [place], [address], 10/10/2024 19:08:40 10/10/20 24 10/10/2024 CELL COUNT apperance CLEAR clear Not Available [facility] (Pre-Op Clinic) [address] [place] [address] [place], [address], 10/10/2024 19:08:40 10/10/20 24 10/10/2024 CELL COUNT viscosity NORMAL normal Not Available [facility] (Pre-Op Clinic) [address] [place] [address] [place], [address], 10/10/2024 19:08:40 10/10/20 24 10/10/2024 CELL COUNT WBC 586 /uL Not Available [facility] (Pre-Op Clinic) [address] [place] [address] [place], [address], 10/10/2024 19:08:40 10/10/20 24 10/10/2024 CELL COUNT RBC 6000 /uL Not Available [facility] (Pre-Op Clinic) [address] [place] [address] [place], [address], 10/10/2024 19:08:40 10/10/20 24 10/10/2024 CELL COUNT polynuclear 44.3 % Not Available [facility] (Pre-Op Clinic) [address] [place] [address] [place], [address], 10/10/2024 19:08:40 10/10/20 24 10/10/2024 CELL COUNT mononuclear 55.7 % ALL COUNT S PERFO RMED ON HEMAC YTOME TER ARE DONE IN [facility]. Not Available [facility] (Pre-Op Clinic) [address] [place] [address] [place], [address], 10/10/2024 19:08:40 10/10/20 24 10/10/2024 CELL COUNT note Unles s other duffy noted testi ng perfo rmed at: [facility] [address] [place] [address] Erwin osorio MD Not Available [facility] (Pre-Op Clinic) [address] [facility] [place], [address], 10/10/2024 19:08:40 10/10/20 24 10/10/2024 CULTU RE BODY FLUID results [facility] 10-12 913 No Growt h at 2 Days [facility] 10-13 954 No Growt h at 3 Days Not Available [facility] (Pre-Op Clinic) [address] [place] [address] [place], [address], 10/13/2024 09:55:42 10/10/20 24 10/10/2024 CULTU RE BODY FLUID note Unles s other duffy noted testi ng perfo rmed at: [facility] [address] [place] [address] Erwin osorio MD Not Available [facility] (Pre-Op Clinic) [address] [place] [address] [place], [address], 10/13/2024 09:55:42 10/10/20 24 10/10/2024 GRAM STAIN source ABDOMI NAL Not Available [facility] (Pre-Op Clinic) [address] [place] [address] [place], [address], 10/10/2024 23:16:48 10/10/20 24 10/10/2024 GRAM STAIN organism #1 NO ORGANI SMS Not Available [facility] (Pre-Op Clinic) [address] [place] [address] [place], [address], 10/10/2024 23:16:48 10/10/20 24 10/10/2024 GRAM STAIN WBC NO WBC'S SEEN no WBC's seen Not Available [facility] (Pre-Op Clinic) [address] [place] [address] [place], [address], 10/10/2024 23:16:48 10/10/20 24 10/10/2024 GRAM STAIN yeast NONE SEEN none seen Not Available [facility] (Pre-Op Clinic) [address] [place] [address] [place], [address], 10/10/2024 23:16:48 10/10/20 24 10/10/2024 GRAM STAIN gram positive QC slide PASS PASS Not Available [facility] (Pre-Op Clinic) [address] [place] [address] [place], [address], 10/10/2024 23:16:48 10/10/20 24 10/10/2024 GRAM STAIN gram negative QC slide PASS PASS Not Available [facility] (Pre-Op Clinic) [address] [place] [address] [place], [address], 10/10/2024 23:16:48 10/10/20 24 10/10/2024 GRAM STAIN note Unles s other dufyf noted testi ng perfo rmed at: [facility] [address] [place] [address] Erwin osorio MD Not Available [facility] (Pre-Op Clinic) [address] [place] [address] [place], [address], 10/10/2024 23:16:48 10/01/20 24 10/01/2024 US, liver [facility] [address] [place] [address] [phone] (Phone ) DAMIAN Kamara REPORT Name: MONIKA ORDAZ : 1959 Accoun t #: [id number] Age: 64 Years Patien t Type: Outpat ient Sex: F Access ion#: [id number] Exam Descri ption: US LIVER Exam Reason : [id number] UNSPEC IFIED CIRRHO SIS OF LIVER Order Date/T jovanna: 2023 07:49: 00 AM Dictat ed By: Latricia osorio MD Orderi Physic shayla: BEN Noble LAN Attend ing Physic shayla: BEN Noble, LAN Ultras ound liver HISTOR Y: Weekly parace ntesis . Prior cholec ystect steph. Person : 2023 FINDIN GS: Intra- abdomi nal ascite s. Liver slight ly hetero geneou s with lobula r margin s and relati ve small size. Query cirrho sis. No discre te intrah epatic hepati c mass. Hepato pedal blood flow within the portal vein. Cephal ad to caudad length 15.3 cm. Pancre as obscur ed by bowel gas. Common bile duct measur es 0.58 cm. The right kidney measur es 11 cm in length by 4.6 cm in transv erse dimens ion. IMPRES MICHEAL: Cirrho sis of liver. No discre te hepati c mass. Intra- abdomi nal ascite s. No biliar y duct dilata tion. PAGE 1 OF 2 Name: MONIKA ORDAZ : 1959 Accoun t #: [id number] Age: 64 Years Patien t Type: Outpat ient Sex: F Access ion#: [id number] Exam Descri ption: US LIVER Exam Reason : [id number] UNSPEC IFIED CIRRHO SIS OF LIVER Order Date/T jovanna: 2023 07:49: 00 AM Electr onical ly signed by: Latricia osorio MD 2023 08:27 AM EST RP Workst ation: [id number] Princi pal Interp reter Name: Latricia osorio Provid er ID: [id number] PAGE 2 OF 2 CC'ed Logic: Orderi ng Provid er: BEN MONTENEGRO CC Provid er: [email or web address] FUNMI Attend ing Provid er: BEN MONTENEGRO Referr ing Provid er: BEN MONTENEGRO Admitt ing Provid er: BEN MONTENEGRO [id number] [facility] ([facility]) [address] [place] [address] [place], [address], 10/12/2024 12:17:50 Result Notes None recorded. Problems Name Problem SNOMED Code Status Onset Date Resolution Date Notes Provider Name and Address Organization Details Recorded Time Hepatic encephalopathy 20195808 Active Sushma Mcguire null, [place] - [facility] - [place] & [place] 4 10:36:45 Pulmonary edema 64705584 Active Sushma [place] [facility] [place] 4 10:36:45 Cirrhosis of liver 50799936 Active Sushma Mcgu[place] [facility] [place] 4 10:36:45 Altered mental status 394755566 Active Sushma Mcgu[place], [place] [facility] [place] & [place] 4 10:36:45 Urinary tract infectious disease 42488821 Active Sushma [place]gu[place], [place] [facility] [place] 4 10:36:45 Liver enzymes level above reference range 971860221 Active Sushma Mcguire null, [place] - [facility] [place] & [place] 4 10:36:45 Diabetes mellitus 99319541 Active Sushma Mcgu[place] null, [place] [facility] [place] 4 10:36:45 Problem Notes None recorded. Procedures Surgical History Date Name Laterality Status Provider Name and Address Organization Details Recorded Time 2023 esophagogastroduodenoscopy completed Neyda Gee [facility] & [place] 4 15:51:40 Imaging Results None recorded. Procedure Notes None recorded. Medical Equipment None Reported. Allergies Allergen ID Allergen Name Allergen Category Reaction Reaction Severity Criticality Documentation Date Start Date Code Code System Note Provider Name and Address Organization Details Recorded Time 285537 No known allergy (situatio n) Not available Not available Not available Not available 09/14/2024 [id number] SNOMED Jen Van [place] liana [facility] & [place] 4 08:45:56 No known drug allergies Medications Name Sig Start Date Stop Date Status Note LastModified by Organization Details LastModified Time furosemide 40 mg tablet Take 1 tablet twice a day by oral route for 30 days. active Not Available Not Available No t Available furosemide 10 mg/mL injection solution 20 mg by injection route. 02/01 completed Not Available Not Available Not Available oxybutynin chloride ER 10 mg tablet,exte nded release 24 hr TAKE 1 TABLET BY MOUTH EVERY EVENING active Not Available Not Available No t Available prochlorper azine maleate 5 mg tablet active Not Available Not Available No t Available spironolact one 100 mg tablet Take 1 tablet twice a day by oral route for 30 days. active Not Available Not Available No t Available Lantus U-100 Insulin 100 unit/mL subcutaneou s solution 48 unts by sub-q route. active Not Available Not Available No t Available Accu-Chek Softclix Lancets active Not Available Not Available Not Available ciprofloxac in 500 mg tablet TAKE 1 TABLET BY MOUTH 2 TIMES A DAY UNTIL GONE 07/16 completed Not Available Not Available Not Available sulfamethox azole 800 mg-trimetho prim 160 mg tablet TAKE 1 TABLET BY MOUTH 2 TIMES A DAY WITH FOOD UNTIL GONE 03/15 completed Not Available Not Available Not Available hydrocodone 10 mg-acetamin ophen 325 mg tablet TAKE 1 TABLET BY MOUTH EVERY 4 HOURS NEEDED FOR PAIN 07/16 completed Not Available Not Available Not Available spironolact one 25 mg tablet 25 mg by oral route. 2023 active Not Available Not Available Not Avai lable zonisamide 100 mg capsule TAKE 1 CAPSULE BY MOUTH EVERY DAY active Not Available Not Available No t Available amoxicillin 875 mg tablet 07/16 completed Not Available Not Available Not Available potassium chloride ER 20 mEq tablet,exte nded release(par t/cryst) 20 milliequi valents by oral route. 02/04 completed Not Available Not Available Not Available tamsulosin 0.4 mg capsule TAKE 1 CAPSULE BY MOUTH 2 TIMES A DAY WITH FOOD active Not Available Not Available No t Available trazodone 100 mg tablet 1.5 tablets by oral route. active Not Available Not Available No t Available phenazopyri dine 100 mg tablet TAKE 1 TABLET BY MOUTH 4 TIMES A DAY NEEDED FOR DYSURIA. active Not Available Not Available No t Available hydrocodone 7.5 mg-acetamin ophen 325 mg tablet TAKE 1 TABLET BY MOUTH EVERY 6 HOURS NEEDED 07/16 completed Not Available Not Available Not Available cephalexin 500 mg capsule TAKE 1 CAPSULE BY MOUTH 4 TIMES A DAY FOR 5 DAYS 02/12 completed Not Available Not Available Not Available pantoprazol e 40 mg tablet,chuy yed release Take 1 tablet every day by oral route for 30 days. active Not Available Not Available No t Available metformin 1,000 mg tablet active Not Available Not Available Not Available gabapentin 300 mg capsule TAKE 1 CAPSULE BY MOUTH 2 TIMES A DAY active Not Available Not Available No t Available aspirin 81 mg chewable tablet 81 mg by oral route. 02/04 completed Not Available Not Available Not Available furosemide 20 mg tablet active Not Available Not Available Not Available diazepam 10 mg tablet TAKE 1 TABLET BY MOUTH 30 MINUTES BEFORE PROCEDURE active Not Available Not Available No t Available ondansetron 4 mg disintegrat ing tablet active Not Available Not Available N ot Available cefdinir 300 mg capsule 300 mg by oral route. 03/15 completed Not Available Not Available Not Available sertraline 50 mg tablet 1 tablet by oral route. active Not Available Not Available No t Available heparin (porcine) 5,000 unit/mL injection solution 5000 unts by injection route. 02/02 completed Not Available Not Available Not Available ceftriaxone 2 gram solution for injection 2 g by injection route. 02/01 completed Not Available Not Available Not Available dextrose 50 % in water (D50W) intravenous syringe 25 mL by intraven. route. 02/04 completed Not Available Not Available Not Available sodium chloride 0.9 % (flush) injection syringe 10 mL by injection route. 02/04 completed Not Available Not Available Not Available ezetimibe 10 mg tablet 1 tablet by oral route. active Not Available Not Available No t Available Novolog FlexPen U-100 Insulin aspart 100 unit/mL (3 mL) subcutaneou s active Not Available Not Available Not Available cyclobenzap rine 5 mg tablet active Not Available Not Available Not Available Premarin 0.625 mg/gram vaginal cream APPLY A PEA-SIZED AMOUNT TO VAGINAL OPENING 3 TO 4 TIMES PER WEEK. 05/14 completed Not Available Not Available Not Available rosuvastati n 10 mg tablet active Not Available Not Available Not Available rosuvastati n 20 mg tablet 1 tablet by oral route. active Not Available Not Available No t Available bupropion HCl XL 150 mg 24 hr tablet, extended release 1 tablet by oral route. active Not Available Not Available No t Available memantine 5 mg tablet Take 1 tablet by mouth every night. active Not Available Not Available No t Available zonisamide 50 mg capsule TAKE 1 CAPSULE BY MOUTH EVERY DAY active Not Available Not Available No t Available nitrofurant oin monohydrate /macrocryst als 100 mg capsule Take 1 capsule every 12 hours by oral route for 5 days. active Not Available Not Available No t Available Constulose 10 gram/15 mL oral solution Take 30 mL 3 times a day by oral route for 30 days. active Not Available Not Available No t Available sodium chloride 0.9 % intravenous piggyback 100 mL by intraven. route. 02/01 completed Not Available Not Available Not Available ondansetron HCl (PF) 4 mg/2 mL injection solution 4 mg by injection route. 02/04 completed Not Available Not Available Not Available Lantus Solostar U-100 Insulin 100 unit/mL (3 mL) subcutaneou s pen active Not Available Not Available Not Available Humalog KwikPen (U-100) Insulin 100 unit/mL subcutaneou s 1 unt by sub-q route. 02/01 completed Not Available Not Available Not Available metformin ER 1,000 mg 24 hr tablet,exte nded release (gastric reten.) 1 tablet by oral route. active Not Available Not Available No t Available Xifaxan 550 mg tablet Take 1 tablet twice a day by oral route for 30 days. active Not Available Not Available No t Available lactulose 20 gram/30 mL oral solution 30 mL by oral route. 2023 active Not Available Not Available Not Avai lable TRUEplus Lancets 30 gauge active Not Available Not Available Not Available Droplet Pen Needle 32 gauge x 3/16 active Not Available Not Available Not Available Accu-Chek Guide test strips active Not Available Not Available Not Available Ubrelvy 100 mg tablet Take 1 tablet by mouth 1 (One) Time As Needed (migraine ). Wait 2 hours before 2nd dose. active Not Available Not Available No t Available Ubrelvy 50 mg tablet 1 tablet by oral route. active Not Available Not Available No t Available Gemtesa 75 mg tablet 1 tablet by oral route. active Not Available Not Available No t Available insulin glargine-yf gn (U-100) 100 unit/mL (3 mL) subcutaneou s pen 15 unts by sub-q route. 02/02 completed Not Available Not Available Not Available DropSafe Alcohol Prep Pads active Not Available Not Available No t Available Vitals Date Recorded Body height Body mass index (BMI) Body weight Body temperature Oxygen saturation Oxygen saturation in Arterial blood by Pulse oximetry Heart rate Provider Name and Address Organization Details Last Updated DateTime 4 165.1 cm 32.4 kg/m2 24033.5 1 g 97.3 [degF] 98 % 98 % 73 /min Nandini Gerard [facility] & [place] 4 08:54:29 Date Recorded Body height Body mass index (BMI) Body weight Body temperature Oxygen saturation Oxygen saturation in Arterial blood by Pulse oximetry Heart rate Provider Name and Address Organization Details Last Updated DateTime 4 165.1 cm 32.8 kg/m2 35142.4 2 g 97.3 [degF] 93 % 93 % 85 /min Joanna Ochoa [facility] & [place] 4 08:28:44 Date Recorded Body height Body mass index (BMI) Body weight Body temperature Oxygen saturation Oxygen saturation in Arterial blood by Pulse oximetry Heart rate Provider Name and Address Organization Details Last Updated DateTime 4 165.1 cm 33.3 kg/m2 73782.4 7 g 97.6 [degF] 96 % 96 % 72 /min Jen Lund [place] [facility] & [place] 08:45:47 Social History None recorded. Functional Status None recorded. Mental Status None recorded. Family History Relationship Description Onset Age of this Age Resolved Age Notes LastModified by Organization Details LastModified Time Mother Disorder of endocrine system pt. added direct ly (03/12) API-13 Not available 03/12/2024 14:06:24 Mother Disorder of thyroid gland pt. added direct ly (03/12) API-13 Not available 03/12/2024 14:07:38 Father Disorder of endocrine system pt. added direct ly (03/12) API-13 Not available 03/12/2024 14:06:24 Father Hearing loss pt. added direct ly (03/12) API-13 Not available 03/12/2024 14:06:59 Father Heart disease pt. added direct ly (09/11) API-13 Not available 09/11/2024 09:03:18 Sister Disorder of endocrine system pt. added direct ly (03/12) API-13 Not available 03/12/2024 14:06:24 Son Disorder of endocrine system pt. added direct ly (03/12) API-13 Not available 03/12/2024 14:06:24 Medical History Condition Response Diabetes Y Obesity Y Vision or Eye Problems Y Arthritis Y Ear or Hearing Problems Y Back Problems Y Kidney or Bladder Problems Y Liver Disease Y Headaches Y Deep Vein Thrombosis Y Obstructive Sleep Apnea Y Neurological Problems Y Gynecological HistoryNo gynecological history recorded. Obstetrics History GPAL:G 0 P 0 0 0 0 Past Encounters Encounter ID Performer Location Encounter Start Date Encounter Closed Date Diagnosis/Indication Diagnosis SNOMED-CT Code Diagnosis ICD10 Code Diagnosis IMO Codes Diagnosis Note [id number] MARIA GUADALUPE Fernandes [facility] [address] [place] [address] [place] [address] 02/13/2024 15:02:36 02/14/2024 11:54:15 Cirrhosis of liver 54238805 K74.60 patient is seen today in hospital follow-up. She was admitted on 02/02/2024 with newly diagnosed cirrhosis, hepatic encephalop athy. Likely NAIDU cirrhosis due to history of diabetes. MELD on initial labs=15. Lactulose and Xifaxan initiated. given mild ascites and lower extremity edema recommend Lasix and Aldactone. Plan to recheck CMP in 2 weeks after starting these medication s. discussed low-sodium diet with her. Ultimately she will need EGD for further evaluation to rule out esophageal varices, PHG, GAVE. Plan for close follow up in 1 month. Ascites 365369518 R18.8 Mild ascites noted on CT imaging while admitted to the hospital. Today she notes some worsening of her abdominal distention . We will plan for ascites ultrasound to determine if paracentes is is warranted. Hepatic encephalopathy 05397360 K76.82 Patient was initially admitted to the hospital for AMS on 02/02/2024 , ammonia found to be elevated with newly diagnosed cirrhosis. Lactulose and Xifaxan initiated with improvemen t. Recommend continue lactulose 30 mL t.i.d. to achieve at least 2-3 loose bowel movements per day. Continue Xifaxan. CT of [facility] abnormal [id number] 3682384 R93.5 CT while inpatient noted possible peptic ulcer disease or sequela of pancreatit is. Lipase was normal, repeat CT imaging with no evidence of pancreatit is. Recommend EGD for further evaluation as well as for above recommenda tions. Continue b.i.d. PPI therapy. [id number] MARIA GUADALUPE Fernandes [facility] [address] [place] [address] [place] [address] 03/15/2024 13:46:43 03/16/2024 13:43:39 Cirrhosis of liver 16241575 K74.60 Patient seen today in follow-up for NAIDU cirrhosis. Continues lactulose, Xifaxan, Lasix and Aldactone. initial MELD was 15. Liver ultrasound from 02/26/2024 with no evidence of ascites. notes improvemen t lower extremity edema after starting diuretics. recommend low-sodium diet. She is scheduled for EGD on 04/04/2024 for evaluation of esophageal varices, PHG, GAVE. plan to follow-up shortly after. Hepatic encephalopathy 17216933 K76.82 Patient currently taking lactulose and Xifaxan. Patient's son states that they are not very consistent with the lactulose. Patient states she is not at her baseline mentally. Plan to recheck ammonia today. Discussed the importance of consistent daily doses of lactulose to achieve 2-3 loose bowel movements per day. CT of [facility] abnormal [id number] 5289082 R93.5 CT while inpatient noted possible peptic ulcer disease or sequela of pancreatit is. Lipase was normal, repeat CT imaging with no evidence of pancreatit is. Recommend EGD for further evaluation as well as for above recommenda tions. Continue b.i.d. PPI therapy. Type 2 arelis betbeverly mellitus 05371038 Z79.4 Discussed importance of diabetic control with patient and her son, states they are following with [facility]. They have not been consistent with her insulin. CMP from 03/14/2024 with glucose 326. Recommend close follow-up with PCP endocrinol ogy for diabetes. [id number] MARIA GUADALUPE Fernandes [address] [place], [place] [address] 05/23/2024 10:16:20 05/23/2024 14:11:10 Cirrhosis of liver 90823958 K74.60 from NAIDU. History of decompensa tion with hepatic encephalop athy. She underwent EGD on 04/04/2024 that noted diffuse portal hypertensi ve gastropath y, erosive duodenitis , mild grade 1-2 esophageal varices. prescribed lactulose which she is not taking as directed. She is taking her furosemide and spironolac tone and denies worsening lower extremity edema, no edema noted on exam today. Plan to recheck labs today to formulate MELD. I have encouraged compliance with all medication s with patient and son. Hepatic encephalopathy 26401297 K76.82 Patient currently taking lactulose and Xifaxan. has not been taking lactulose as directed given diarrhea. Her ammonia from 03/15/2024 was 92. Recommend lactulose 15 mL b.i.d or titrated to achieve 2-3 loose bowel movements per day. Esophageal varices 81069 008 I85.00 Mild grade 1-2 esophageal varices noted on EGD from 04/04/2024 . These were not banded. She is hypotensiv e in the clinic today, as such recommend against beta bam therapy. I have advised her to monitor her bps at home and we will rediscuss next visit. [id number] Montse Dent DPM [facility] [address] [place] [address] Drive,[facility] [address] [place] [address] 07/17/2024 09:42:12 07/17/2024 10:39:39 Disorder of nervous system due to type 2 diabetes mellitus 910763550 E11.49 Performed/ updated lower extremity neurovascu lar exams today.Disc ussed importance of diabetic foot care including controllin g blood sugar, monitoring feet daily, applying moisturize r to feet but not between the toes, appropriat e shoe gear, drying well between the toes after bath, and risks associated with soaking feet. Also discussed importance of routine exercise (recommend daily average of 30 minutes), a balanced diet ( consider supplement ation if diet not adequate), and healthy sleep habits.Pat ient interested in the diabetic shoe program. Patient would medically benefit from diabetic shoes and accommodat adina inserts. Patient qualifies for this program according to Medicare guidelines . Style is selected and size measured today. See order form for details. Callosity 405141507 L84 Filed with [facility]. Monitor for worsening. Counseled regarding routine maintenanc e. Recommend appropriat e shoe gear with ambulation , even in the home. Consider addition of offloading / padding to reduce recurrence of hyperkerat osis. Pain in right foot 08861 64076 79829 M79.671 Pain in left foot 197072 9959 29215 M79.672 Onychogryphosis 22860751 L60.2 Debrided toenails in thickness and length. Offered routine care, pt declines. Reports she can manage well enough herself. 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 History of decompensa tion with hepatic encephalop athy on lactulose, EGD on 04/04/2024 noted diffuse portal hypertensi ve gastropath y, erosive duodenitis , mild grade 1-2 esophageal varices. recently evaluated in the ED twice due to general malaise and abdominal distention . CT from 07/17/2024 demonstrat es cirrhotic liver with sequela of portal hypertensi on, large volume ascites with splenomega ly, severe body wall anasarca. No pleural effusion noted. Labs at that time significan t for bilirubin 3.4, AST 88, platelets 114, INR 1.8. Her ammonia was less than 9. Her current MELD is 18. Significan t ascites noted on exam, as well as scleral icterus. Plan to send her over for paracentes is today. Plan to increase diuretics for at least a couple of weeks, it appears that she ran out a couple of weeks ago until she was seen in the ED. ultimately her condition continues to decline with multiple areas of decompensa tion. As such recommend evaluation with [facility] , referral placed. We will see her back in short-term follow-up Ascites 628311386 R18.8 CT from 07/17/2024 noted large volume ascites with severe body wall anasarca. She did not undergo paracentes is at that time. Plan to send her to the hospital today to have paracentes is performed, plan to increase her Lasix to 80 mg daily and spironolac tone 100 mg twice a day. Plan to recheck her labs on a couple of weeks. Importance of low sodium diet was discussed with her. Hepatic encephalopathy 92082613 K76.82 Patient currently taking lactulose and Xifaxan. Ammonia from 07/17/2024 was less than 9. Continue current dosing. Type 2 arelis betes mellitus 08484970 Z79.4 Poorly controlled . She states that she has not been taking her insulin injections due to her abdominal distension . Readings today in office with her Dexcom were around 250. She follows with endocrinol ethan at with known poor insulin compliance and frequent hyperglyce funmi. discussed how her diabetes effects her liver and will only worsen her condition, she verbalized understand ing. It appears she may be having some issues at home which certainly affects her compliance with her medication s Esophageal varices 57862 008 I85.00 Mild grade 1-2 esophageal varices noted on EGD from 04/04/2024 . These were not banded. she is not a good candidate for beta-block er therapy given history of hypotensio n. [id number] MARIA GUADALUPE Fernandes [facility] [address] [place] [address] 08/03/2024 08:16:56 08/07/2024 12:16:17 Cirrhosis of liver 28667440 K74.60 Secondary to NAIDU. History of decompensa tion with hepatic encephalop athy on lactulose, EGD on 04/04/2024 noted diffuse portal hypertensi ve gastropath y, erosive duodenitis , mild grade 1-2 esophageal varices. more recently she developed abdominal ascites, last paracentes is on 07/20/2024 . We increased her diuretics to Lasix 40 b.i.d. and spironolac tone 100 b.i.d. plan to recheck CMP today. She is scheduled to see [facility] next month. We will see her back in 6 weeks at which time she will be due for repeat liver ultrasound . Ascites 114668876 R18.8 CT from 07/17/2024 noted large volume ascites with severe body wall anasarca. Paracentes is performed 07/20/2024 with 2.8 L removed. Plan to recheck labs after increasing diuretics recently. Continue strict low-sodium diet, this is complicate d by her living alone and only eating meals that are delivered to her. plan for repeat paracentes is if warranted, she is scheduled for 08/06/2024 . Gastroesop hageal reflux disease without esophagitis 216967633 K21.9 patient reports some increased reflux in the distal symptoms since her onset of ascites. Recommend starting PPI therapy [id number] MARIA GUADALUPE Fernandes [facility] [address] [place] [address] 09/14/2024 08:15:28 09/14/2024 14:29:18 Cirrhosis of liver 37351956 K74.60 Secondary to NAIDU. History of decompensa tion with hepatic encephalop athy on lactulose, EGD 04/04/2024 noted diffuse portal hypertensi ve gastropath y, erosive duodenitis , mild grade 1-2 esophageal varices. also history of ascites requiring frequent paracentes is. She establishe d with [facility] yesterday via telehealth , they are requesting new labs which we will order today. She is also due for liver ultrasound which will be ordered. Pt appears in distress this morning during our visit, she is visibily more jaundice and had several episodes of vomiting. As such recommend ER evaluation . Will follow up on workup in ED and send new labs to . Ascites 872862811 R18.8 Last paracentes is performed 09/12/2024 with 8 L removed. Reports having 8 L removed the week prior as well. Recommend continue weekly paracentes is if needed, continue Lasix 40 b.i.d. spironolac tone 100 b.i.d. Hepatic encephalopathy 31929748 K76.82 Patient currently taking lactulose and Xifaxan. Ammonia from 07/17/2024 was less than 9. No asterixis on exam. Vomiting 391181909 R11.1 0 Patient with projectile vomiting x2 in clinic today. Given symptoms as well as noticeable jaundice recommend ER evaluation . Will follow up on this [id number] Montse Dent DPM [facility] [address] [place] [address],[facility] [address] [place] [address] 09/14/2024 10:08:38 09/18/2024 09:53:56 Disorder of nervous system due to type 2 diabetes mellitus 406823868 E11.49 Diabetic shoes right and left and multiple density heat moldable inserts x 6 were dispensed in office today (Dr. Zulma alvarez). Each insert was prefabrica heidi with base layer of at least 3/16 inch material of shore a 40 durometer. Patient's gait was observed while wearing diabetic shoes and inserts. Proper length, width and fit were inspected. Patient signed product warranty form with a full disclosure of return policy and break in period. A [employer] Supplier Standard policy was also dispensed. Patient to follow up if any problems should arise during break in period. See dispensal form for size, style, and width. DME dispensed by Catrachita Clements CMA. Callosity 444447689 L84 Acquired c avus deformity of right foot [id number] 907453 M21.6X1 Acquired c avus deformity of left foot 4550389709 115528 M21.6X2 Health Concerns Section Related Observation LastModified by Organization Detai ls LastModified Time None Recorded Concern Status LastModified by Organization Details LastModified Time None Recorded Advance Directives Directive None Recorded Payers Insurance Date Sequence Insurance Name Policy Number Policy Ochoa Covered Member ID Ochoa Member ID Guarantor Name 09/17/2024 1 [employer] (MEDICARE REPLACEMENT/ ADVANTAGE - PPO) Monika [facility] [id number] [facility] 09/10/2024 [employer] (MEDICARE REPLACEMENT/ ADVANTAGE - PPO) [id number] Monika [facility] [id number] [facility] 09/10/2024 1 [employer] (PPO) [id number] Monika [facility] [id number] [facility] 09/10/2024 1 [employer] [id number] Monika [facility] [id number] [facility] 09/11/2024 2 MEDICAID-[facility] - FFS/TRADITIO NAL Monika [facility] [id number] Monika [facility] 09/10/2024 2 [place] Monika [facility] [id number] [facility] Notes Date Note Type Note Provider Name and Address Organization Details Recorded Time 07/17/2024 text/html Patient presents for diabetic foot exam and to order shoes. Patient relates she has a hard time reaching her feet to inspect well and she feels like she needs a good foot exam. She does get some mild callouses on her feet, mostly on the left. Patient admits pain in her feet from neuropathy.New patient, self referred. PCP: Dr. Antonio ([facility])Last PCP visit: May 2024Last reported BS: 181 mg/dl Montse Dent DPM [address] [place] [address], [address], [place], [address], [place] - [place] - [place] & [place] 07/20/2024 09:29:47 07/20/2024 text/html This is a 63-year-old female who is seen today in follow up for NAIDU cirrhosis. History of decompensation with hepatic encephalopathy, EGD on 04/04/2024 that noted a diffuse portal hypertensive gastropathy, gastritis, erosive duodenitis, mild grade 1-2 esophageal varices in the distal esophagus. Not on beta bam therapy due to hypotension. She is seen today in earlier follow up due to recent ER visits. Patient states that a couple of weeks ago she ran out of her diuretics. She has been having some issues at home, states that her son and his girlfriend moved out. She states that she was taken to the hospital via ambulance on 07/15/2024 at which time she was discharged with lactulose. She presented again on 07/17/2024 due to worsening abdominal distention. CT at that time showed cirrhotic liver with sequela of portal venous hypertension with large volume ascites and splenomegaly, severe body wall anasarca without pleural effusion. Labs at that time significant for bilirubin 3.4, AST 88, platelets 114, INR 1.8. Her ammonia was less than 9. Her current meld is 18. patient currently states that she is feeling poorly, she has a lot of abdominal distention which is making it difficult to breathe as well as eat. She has not been doing her insulin injections due to her distention. Her current blood sugar on her Dexcom is around 250. MARIA GUADALUPE Fernandes [address], [address], [place], [address], [facility] & [place] 07/20/2024 10:48:38 08/03/2024 text/html This is a 63-year-old female who is seen today in follow-up for NAIDU cirrhosis. History of decompensation with hepatic encephalopathy and more recently abdominal ascites. EGD from 04/04/2024 showed diffuse portal hypertensive gastropathy, gastritis, erosive duodenitis, mild grade 1-2 esophageal varices in the distal esophagus. She has not on beta-bam therapy due to episodes of hypotension. She is seen today in short-term follow-up. She underwent repeat paracentesis on 07/20/2024. We increased her diuretics to Lasix 40 twice a day, spironolactone 100 mg twice a day. She states that she has been feeling somewhat better, her abdominal distention is not as severe however has reaccumulated. She states that she feels very full often. she reports increased GERD indigestion symptoms as well. MARIA GUADALUPE Fernandes [address], [address], [place], [address], [facility] & [place] 08/06/2024 11:10:22 09/14/2024 text/html This is a 64-year-old female who is seen today in follow-up for NAIDU cirrhosis. History of decompensation with hepatic encephalopathy and abdominal ascites. EGD from 04/04/2024 showed diffuse portal hypertensive gastropathy, gastritis, erosive duodenitis and mild grade 1-2 esophageal varices in the distal esophagus. She has done paracentesis the last 2 weeks with 8 L removed each time. She continues Lasix 40 mg spironolactone 100 mg. She established with [facility] via telehealth yesterday, states they are requesting new labs. Today she states that she is feeling poorly. She is very nauseous this morning. She states her blood sugars have been pretty well controlled. MARIA GUADALUPE Fernandes [address], [address], [place], [address], [facility] & [place] 09/14/2024 10:06:01 09/14/2024 text/html Patient presents for dispensal of 1 pair of diabetic shoes and 3 pair of diabetic accommodative inserts. Montse Dent DPM [address], [address], [place], [address], [place] [facility] & [place] 09/14/2024 12:19:18 OBGyn Episode No OBEpisode recorded.
--- OUTSIDE RECORDS SUMMARY | 2025-08-17 13:38 | XMS_ITS | Encounter Summary ---
Author Organization [facility] Address [address] [place] [address] Care Team Providers Care Behavioral Health Director Name Role Phone Lea Fernando Unavailable [phone] Rachel Ray RELIEF MAN Unavailable [phone] Alvarez Zimmer MD Primary Care Provider [phone] Tamera Isabel SOCIAL SERVICES COORDINATOR Unavailable Unavailabl e Encounter Details Date Type Department Care Team (Latest Contact Info) Description 2025 Travel Social History Tobacco Use Types Packs/Day [...] you attend chur ch or orthodox services? Patient unable to answer [...] often do you attend [facility] or orthodox services? Never 05/29/2025 Do you [...] more drinks on one occasion? Never 06/25/2025 [facility] [place] of Occupat ional [facility] - Occupational Stress Questionnaire Answer Date Recorded [...] first t kennedy in the morning (EYE-ELECTRICIAN ASSISTANT) to steady your nerves or to [...] Description 08/20/2025 9:30 AM EDT Clinical Support [facility] [address] [place] [address] 08/20/2025 10:30 AM EDT Social Work [facility]plant [place] [address] [place] [address] [place] [address] 08/20/2025 11:00 AM EDT Office Visit [facility] [address] [place] [address] Jude Duque MD [address] [place] [address] 08/22/2025 11:15 AM EDT Appointment [facility] [address] [place] [address] 08/22/2025 12:15 PM EDT Appointment [facility] [address] [place] [address] 08/26/2025 1:00 PM EDT Office Visit [facility] Endocrinology [address] [place] [address] Miranda Hobson APRN [address] [facility] [address] [place] [address] 08/29/2025 10:00 AM EDT Appointment [facility]iology [address] [place] [address] 08/29/2025 11:00 AM EDT Appointment [facility] [address] [place] [address] 09/05/2025 10:00 AM EDT Appointment [facility] [address] [place] [address] 09/05/2025 11:00 AM EDT Appointment [facility] [address] [place] [address] documented as of this encounter Visit Diagnoses [...] documented as of this encounter Care Teams Behavioral Health Director Relationship Specialty Start Date End Date Alvarez Zimmer MD [address] [place] [address] PCP - General Family Medicine 12/07/24 Lea Fernando [address] [facility] 125 [place] [address] Highway Commissioner Endocrinology 08/29/24 Rachel Ray, ADRI [address] [place] [address] Nurse Practitioner Gastroenterology 09/24/24 Tamera Isabel LPN VALUE-BASED TRANSFORMATION PROGRAM Licensed Practical Nurse 05/29/25 documented as of this encounter
--- OUTSIDE RECORDS SUMMARY | 2025-08-17 13:38 | XMS_ITS | Encounter Summary ---
Author Organization [facility] Address [address] [place] [address] Care Team Providers Care Director Of Student Aid Name Role Phone Lea Fernando Unavailable [phone] Rachel Ray TOBACCO CLASSER Unavailable [phone] Alvarez Zimmer MD Primary Care Provider [phone] Tamera Isabel INSOLE LIP TURNER Unavailable Unavailabl Monique Garay LPN Unavailable Unavailable [...] in the past 12 m [facility], were you homeless or living [...] first t kennedy in the morning (EYE-MEDICAL INSTRUMENT CABLE FABRICATOR) to steady your nerves or to get [...] Description 08/20/2025 9:30 AM EDT Clinical Support [facility] Trans[facility] Center [address] [place] [address] 08/20/2025 10:30 AM EDT Social Work [facility] Transplant [place] [address] [place] [address] [place] [address] 08/20/2025 11:00 AM EDT Office Visit [facility] [address] [place] [address] Jude Duque MD [address] [place] [address] 08/22/2025 11:15 AM EDT Appointment [facility]iology [address] [place] [address] 08/22/2025 12:15 PM EDT Appointment [facility] Inter[facility] Radiology [address] [place] [address] 08/26/2025 1:00 PM EDT Office Visit [facility] Endocrinology [address] [place] [address] Miranda Hobson, TOBACCO CLASSER [address] [facility] [address] [place] [address] 08/29/2025 10:00 AM EDT Appointment [facility] Radiology [address] [place] [address] 08/29/2025 11:00 AM EDT Appointment [facility] [address] [place] [address] 09/05/2025 10:00 AM EDT Appointment [facility] [address] [place] [address] 09/05/2025 11:00 AM EDT Appointment [facility] [address] [place] [address] documented as of this encounter Visit Diagnoses [...] of this encounter Care Teams Director Of Student Aid Relationship Specialty Start Date End Date Alvarez Zimmer MD [address] [place] [address] PCP - General Family Medicine 12/07/24 Lea Fernando [address] [place] [address] Cloth Carrier Endocrinology 08/29/24 Rachel Ray APRN [address] [facility] [address] [place] [address] Nurse Practitioner Gastroenterology 09/24/24 Tamera Isabel LPN VALUE-BASED TRANSFORMATION PROGRAM Licensed Practical Nurse 05/29/25 Monique Tapia LPN VALUE-BASED [place] [address] TCM Nurse 07/10/25 08/09/25 documented as of this encounter
--- OUTSIDE RECORDS SUMMARY | 2025-08-17 13:39 | XMS_ITS | Encounter Summary ---
Author Organization [facility] Address [address] [place] [address] Care Team Providers Care Inspector Mechanical Name Role Phone Lea Fernando Unavailable [phone] Rachel Ray AEGIS CONSOLE OPERATOR TRACK Unavailable [phone] Alvarez Zimmer MD Primary Care Provider [phone] Tamera Isabel BRAILLE CODER Unavailable Unavailabl Monique Garay LPN Unavailable Unavailable [...] more drinks on one occasion? Never 06/25/2025 [facility] Occupat ional [facility] - [...] drink first t kennedy in the morning (EYE-STRUCTURAL RIGGER) to steady your nerves or to [...] Description 08/20/2025 9:30 AM EDT Clinical Support [facility] Transplant Center [address] [place] [address] 08/20/2025 10:30 AM EDT Social Work [facility] Transplant [place] [address] [place] [address] [place] [address] 08/20/2025 11:00 AM EDT Office Visit [facility] [address] [place] [address] Jude Duque MD [address] [place] [address] 08/22/2025 11:15 AM EDT Appointment [facility] Inter[facility] Radiology [address] [place] [address] 08/22/2025 12:15 PM EDT Appointment [facility]iology [address] [place] [address] 08/26/2025 1:00 PM EDT Office Visit [facility] Endocrinology [address] [place] [address] Miranda Hobson P, AEGIS CONSOLE OPERATOR TRACK [address] [place] [address] 08/29/2025 10:00 AM EDT Appointment [facility] Radiology [address] [place] [address] 08/29/2025 11:00 AM EDT Appointment [facility] [address] [place] [address] 09/05/2025 10:00 AM EDT Appointment [facility] [address] [place] [address] 09/05/2025 11:00 AM EDT Appointment [facility] [address] [place] [address] documented as of this encounter Visit Diagnoses [...] documented as of this encounter Care Teams Inspector Mechanical Relationship Specialty Start Date End Date Alvarez Zimmer MD [address] [place] [address] PCP - General Family Medicine 12/07/24 Lea Fernando [address] [place] [address] Crane Operator Endocrinology 08/29/24 Rachel Ray APRN [address] [place] [address] Nurse Practitioner Gastroenterology 09/24/24 Tamera Isabel LPN VALUE-BASED TRANSFORMATION PROGRAM Licensed Practical Nurse 05/29/25 Monique Tapia LPN VALUE-[place] [address] TCM Nurse 07/10/25 08/09/25 documented as of this encounter
--- OUTSIDE RECORDS SUMMARY | 2025-08-17 13:39 | XMS_ITS | Encounter Summary ---
Author Organization [facility] Address [address] [place] [address] Care Team Providers Care Restoration Officer Name Role Phone Lea Fernando Unavailable [phone] Rachel Ray DIRECTOR DAY CARE CENTER Unavailable [phone] Alvarez Zimmer MD Primary Care Provider [phone] Tamera Isabel INSPECTOR CANNED FOOD RECONDITIONING Unavailable Unavailabl e Encounter Details Date Type [...] you attend chur ch or zoroastrianism services? Patient unable to [...] week 05/29/2025 How often do you attend [facility] or zoroastrianism services? Never 05/29/2025 Do you [...] more drinks on one occasion? Never 06/25/2025 [facility] [place] of Occupat ional [facility] - Occupational Stress Questionnaire Answer Date Recorded [...] drink first t kennedy in the morning (EYE-TOOTH CUTTER PINION) to steady your nerves or to get [...] Clinical Support [facility] Transplant [place] [address] [place] [address] 08/20/2025 10:30 AM EDT Social Work [facility] Transplant [place] [address] [place] [address] [place] [address] 08/20/2025 11:00 AM EDT Office Visit [facility] Transplant Center [address] [place] [address] Jude Duque MD [address] [place] [address] 08/22/2025 11:15 AM EDT Appointment [facility] Interventional Radiology [address] [place] [address] 08/22/2025 12:15 PM EDT Appointment [facility] Inter[facility] Radiology [address] [place] [address] 08/26/2025 1:00 PM EDT Office Visit [facility] Endocrinology [address] [place] [address] Miranda Hobson P, DIRECTOR DAY CARE CENTER [address] [facility] 125 [place] [address] 08/29/2025 10:00 AM EDT Appointment [facility] Inter[facility] Radiology [address] [place] [address] 08/29/2025 11:00 AM EDT Appointment [facility]iology [address] [place] [address] 09/05/2025 10:00 AM EDT Appointment [facility] Inter[facility] Radiology [address] [place] [address] 09/05/2025 11:00 AM EDT Appointment [facility] Inter[facility] Radiology [address] [place] [address] documented as of this encounter Visit Diagnoses [...] documented as of this encounter Care Teams Restoration Officer Relationship Specialty Start Date End Date Alvarez Zimmer MD [address] [place] [address] PCP - General Family Medicine 12/07/24 Lea Fernando [address] [place] [address] Senior Solutions Engineer Endocrinology 08/29/24 Rachel Ray APRN [address] [facility] [address] [place] [address] Nurse Practitioner Gastroenterology 09/24/24 Tamera Isabel, INSPECTOR CANNED FOOD RECONDITIONING VALUE-BASED TRANSFORMATION PROGRAM Licensed Practical Nurse 05/29/25 documented as of this encounter
--- OUTSIDE RECORDS SUMMARY | 2025-08-17 13:39 | XMS_ITS | Encounter Summary ---
Author Organization [facility] Address [address] [place] [address] Care Team Providers Care Medical Instrument Cable Fabricator Name Role Phone Lea Fernando Unavailable [phone] Rachel Ray VIOLIN REPAIRER Unavailable [phone] Alvarez Zimmer MD Primary Care Provider [phone] Tamera Isabel MACHINE PLUG SHAPER Unavailable Unavailabl e Encounter Details Date Type [...] more drinks on one occasion? Never 06/25/2025 [facility] [place] of Occupat ional [facility] - Occupational Stress Questionnaire Answer Date Recorded [...] first t kennedy in the morning (EYE-INSPECTOR PACKER) to steady your nerves or to get [...] Description 08/20/2025 9:30 AM EDT Clinical Support [facility] Transplant Center [address] [place] [address] 08/20/2025 10:30 AM EDT Social Work [facility] Transplant [place] [address] [place] [address] [place] [address] 08/20/2025 11:00 AM EDT Office Visit [facility] Transplant Center [address] [place] [address] Jude Duque MD [address] [place] [address] 08/22/2025 11:15 AM EDT Appointment [facility] Interventional Radiology [address] [place] [address] 08/22/2025 12:15 PM EDT Appointment [facility] Interventional Radiology [address] [place] [address] 08/26/2025 1:00 PM EDT Office Visit [facility] Endocrinology [address] [place] [address] Miranda Hobson, VIOLIN REPAIRER [address] [facility] [address] [place] [address] 08/29/2025 10:00 AM EDT Appointment [facility] Inter[facility] Radiology [address] [place] [address] 08/29/2025 11:00 AM EDT Appointment [facility] Inter[facility] Radiology [address] [place] [address] 09/05/2025 10:00 AM EDT Appointment [facility] Inter[facility] Radiology [address] [place] [address] 09/05/2025 11:00 AM EDT Appointment [facility] Interventional Radiology [address] [place] [address] documented as of this encounter Visit Diagnoses [...] as of this encounter Care Teams Medical Instrument Cable Fabricator Relationship Specialty Start Date End Date Alvarez Zimmer MD [address] [place] [address] PCP - General Family Medicine 12/07/24 Lea Fernando [address] [place] [address] Senior Client Advisor Endocrinology 08/29/24 Rachel Ray APRN [address] [place] [address] Nurse Practitioner Gastroenterology 09/24/24 Tamera Isabel, MACHINE PLUG SHAPER VALUE-BASED TRANSFORMATION PROGRAM Licensed Practical Nurse 05/29/25 documented as of this encounter
--- OUTSIDE RECORDS SUMMARY | 2025-08-17 13:39 | XMS_ITS | Encounter Summary ---
Author Organization [facility] Address [address] [place] [address] Care Team Providers Care Purchasing And Claims Supervisor Name Role Phone Lea Fernando Unavailable [phone] Rachel Ray MANAGER TECHNICAL SUPPORT Unavailable [phone] Alvarez Zimmer MD Primary Care Provider [phone] Tamera Isabel VENEER TRIMMER Unavailable Unavailabl e Encounter Details Date Type [...] often do you attend chur ch or restoration services? Patient unable to [...] week 05/29/2025 How often do you attend [facility] or restoration services? Never 05/29/2025 Do you [...] more drinks on one occasion? Never 06/25/2025 [facility] [place] of Occupat ional [facility] - Occupational Stress Questionnaire Answer Date [...] in the past 12 m [facility], were you homeless or living in a usp (including now)? No 06/26/2025 CAGE ASSESSMENT Answer [...] drink first t kennedy in the morning (EYE-PROSECUTING ATTORNEY) to steady your nerves or to [...] Description 08/20/2025 9:30 AM EDT Clinical Support [facility] Transplant Center [address] [place] [address] 08/20/2025 10:30 AM EDT Social Work [facility] Transplant [place] [address] [place] [address] [place] [address] 08/20/2025 11:00 AM EDT Office Visit [facility] [address] [place] [address] Jude Duque MD [address] [place] [address] 08/22/2025 11:15 AM EDT Appointment [facility] Interventional Radiology [address] [place] [address] 08/22/2025 12:15 PM EDT Appointment [facility] Interventional Radiology [address] [place] [address] 08/26/2025 1:00 PM EDT Office Visit [facility] Endocrinology [address] [place] [address] Miranda Hobson, MANAGER TECHNICAL SUPPORT [address] [facility] [address] [place] [address] 08/29/2025 10:00 AM EDT Appointment [facility] Interventional Radiology [address] [place] [address] 08/29/2025 11:00 AM EDT Appointment [facility] Interventional Radiology [address] [place] [address] 09/05/2025 10:00 AM EDT Appointment [facility] Inter[facility] Radiology [address] [place] [address] 09/05/2025 11:00 AM EDT Appointment [facility] Interventional Radiology [address] [place] [address] documented as of this encounter Visit Diagnoses [...] documented as of this encounter Care Teams Purchasing And Claims Supervisor Relationship Specialty Start Date End Date Alvarez Zimmer MD [address] [place] [address] PCP - General Family Medicine 12/07/24 Lea Fernando [address] [place] [address] Information Technology Associate Endocrinology 08/29/24 Rachel Ray APRN [address] [place] [address] Nurse Practitioner Gastroenterology 09/24/24 Tamera Isabel, VENEER TRIMMER VALUE-BASED TRANSFORMATION PROGRAM Licensed Practical Nurse 05/29/25 documented as of this encounter
--- OUTSIDE RECORDS SUMMARY | 2025-08-17 13:39 | XMS_ITS | Encounter Summary ---
Author Organization [facility] Address [address] [place] [address] Care Team Providers Care Sash Assembler Name Role Phone NaseemVivTor, Lea Clarke Unavailable [phone] Rachel Ray EXPLOSIVE MAN Unavailable [phone] Alvarez Zimmer MD Primary Care Provider [phone] Tamera Isabel OUTBOARD MOTORBOAT RIGGER Unavailable Unavailabl e Alina Lovett RN Unavailable Unavailab le Reason for Visit * Reason Comments Link Encounter Details Date Type Department Care Team (Late st Contact Info) Description 06/26/2025 Patient Outreach POPULATION HEALTH [address] [facility], [address] [place] [address] Alina Lovett, RN CH-VASCULAR & [...] attend [facility] or rastafarian services? Patient unable to answer 01/10/2025 Do you belong to any clubs o r organizations such as islam groups, unions, SHADOWternal or athletic groups, or school groups? Patient [...] often do you attend chur ch or rastafarian services? Never 05/29/2025 Do you [...] more drinks on one occasion? Never 06/25/2025 [facility] of Occupat ional [facility] - Occupational Stress Questionnaire Answer Date [...] first t kennedy in the morning (EYE-MARKETING CO OP) to steady your nerves or to get [...] EDT Clinical Support [facility] Transplant [place] [address] [place] [address] 08/20/2025 10:30 AM EDT Social Work [facility] Transplant [place] [address] [place] [address] [place] [address] 08/20/2025 11:00 AM EDT Office Visit [facility] Transplant Center [address] [place] [address] Jude Duque MD [address] [place] [address] 08/22/2025 11:15 AM EDT Appointment [facility] Interventional Radiology [address] [place] [address] 08/22/2025 12:15 PM EDT Appointment [facility] Interventional Radiology [address] [place] [address] 08/26/2025 1:00 PM EDT Office Visit [facility] Endocrinology [address] [place] [address] Miranda Hobson, EXPLOSIVE MAN [address] [facility] [address] [place] [address] 08/29/2025 10:00 AM EDT Appointment [facility] Interventional Radiology [address] [place] [address] 08/29/2025 11:00 AM EDT Appointment [facility] Inter[facility] Radiology [address] [place] [address] 09/05/2025 10:00 AM EDT Appointment [facility] Inter[facility] Radiology [address] [place] [address] 09/05/2025 11:00 AM EDT Appointment [facility] Interventional Radiology [address] [place] [address] documented as of this encounter Visit Diagnoses [...] documented as of this encounter Care Teams Sash Assembler Relationship Specialty Start Date End Date Alvarez Zimmer MD [address] [place] [address] PCP - General Family Medicine 12/07/24 Lea Fernando [address] [facility] [address] [place] [address] Mixer Operator Endocrinology 08/29/24 Rachel Ray APRN [address] [facility] [address] [place] [address] Nurse Practitioner Gastroenterology 09/24/24 Tamera Isabel, OUTBOARD MOTORBOAT RIGGER VALUE-BASED TRANSFORMATION PROGRAM Licensed Practical Nurse 05/29/25 Alina Lovett, RN CH-VASCULAR & INTERVENTIONAL RADIOLOGY Registered Nurse 06/26/25 06/26/25 documented as of this encounter
--- OUTSIDE RECORDS SUMMARY | 2025-08-17 13:39 | XMS_ITS | Encounter Summary ---
Author Organization [facility] Address [address] [place] [address] Care Team Providers Care Automatic Quilling Machine Operator Name Role Phone Lea Fernando Unavailable [phone] Rachel Ray INSURANCE ANALYST Unavailable [phone] Alvarez Zimmer MD Primary Care Provider [phone] Tamera Isabel RADIO TIME SALESPERSON Unavailable Unavailabl Monique Garay LPN Unavailable Unavailable [...] living in a prison (including now)? No 06/26/2025 CAGE ASSESSMENT Answer [...] drink first t kennedy in the morning (EYE-TRANSPORTATION OPERATIONS MANAGER) to steady your nerves or to [...] Transplant Center [address] [place] [address] 08/20/2025 10:30 AM EDT Social Work [facility] [place] [address] [place] [address] [place] [address] 08/20/2025 11:00 AM EDT Office Visit [facility] [address] [place] [address] Jude Duque MD [address] [place] [address] 08/22/2025 11:15 AM EDT Appointment [facility] Inter[facility] [address] [place] [address] 08/22/2025 12:15 PM EDT Appointment [facility] Inter[facility] Radiology [address] [place] [address] 08/26/2025 1:00 PM EDT Office Visit [facility] Endocrinology [address] [place] [address] Miranda Hobson P, INSURANCE ANALYST [address] [place] [address] 08/29/2025 10:00 AM EDT Appointment [facility] Radiology [address] [place] [address] 08/29/2025 11:00 AM EDT Appointment [facility] [address] [place] [address] 09/05/2025 10:00 AM EDT Appointment [facility]iology [address] [place] [address] 09/05/2025 11:00 AM EDT Appointment [facility] Inter[facility] Radiology [address] [place] [address] documented as of this encounter Visit Diagnoses [...] documented as of this encounter Care Teams Automatic Quilling Machine Operator Relationship Specialty Start Date End Date Alvarez Zimmer MD [address] [place] [address] PCP - General Family Medicine 12/07/24 Lea Fernando [address] [place] [address] Restorative Coordinator Endocrinology 08/29/24 Rachel Ray APRN [address] [place] [address] Nurse Practitioner Gastroenterology 09/24/24 Tamera Isabel LPN VALUE-BASED TRANSFORMATION PROGRAM Licensed Practical Nurse 05/29/25 Monique Tapia LPN VALUE-[place] [address] TCM Nurse 07/10/25 08/09/25 documented as of this encounter
--- OUTSIDE RECORDS SUMMARY | 2025-08-17 13:39 | XMS_ITS | Encounter Summary ---
Author Organization [facility] Address [address] [place] [address] Care Team Providers Care Lye Bath Operator Name Role Phone Lea Fernando Unavailable [phone] Rachel Ray CREDIT CLERK Unavailable [phone] Alvarez Zimmer MD Primary Care Provider [phone] Tamera Isabel LPN Unavailable Unavailabl e Monique Tapia LPN Unavailable Unavailable Reason for Visit * Reason Comments TCM Encounter Details Date Type Department Care Team (Late st Contact Info) Description 07/10/2025 Patient Outreach [facility] [address] [facility] [place] [address] Monique Tapia LPN VALUE-BASED [place] [address] TCM Social History Tobacco Use Types Packs/Day [...] o r organizations such as jew groups, [employer], [employer] or athletic groups, or school groups? Patient [...] week 05/29/2025 How often do you attend [facility] ch or jewish services? Never 05/29/2025 Do you belong to any clubs o r organizations such as jew groups, unions, Revertternal or athletic groups, or school groups? No [...] more drinks on one occasion? Never 06/25/2025 [facility] - Occupational Stress [...] drink first t kennedy in the morning (EYE-BRUSHER WARP) to steady your nerves or to get [...] Admit Date: 06/25/2025 Discharge Date: 07/09/2025 to [facility] Service: GSH Discharge Diagnosis: Cirrhosis of liver with ascites 07/10/2025 TCM call # 1 Patient Reached: N Outcome: No KLEBER nurse call placed due to patient discharged to [facility] in [place] on 07/09/2025. Action: Follow up task placed [...] Description 08/20/2025 9:30 AM EDT Clinical Support [facility] [place] [address] [facility] [address] [place] [address] 08/20/2025 10:30 AM EDT Social Work [facility] [place] [address] [facility] [address] [place] [address] [place] [address] 08/20/2025 11:00 AM EDT Office Visit [facility] [place] [address] [facility] [address] [place] [address] Jude Duque MD [address] [facility] [address] [place] [address] 08/22/2025 11:15 AM EDT Appointment [facility] Inter[facility] Radiology [address] [place] [address] 08/22/2025 12:15 PM EDT Appointment [facility] Interventional Radiology [address] [place] [address] 08/26/2025 1:00 PM EDT Office Visit [facility] Endocrinology [address] [place] [address] Miranda Hobson P, CREDIT CLERK [address] [facility] [address] [place] [address] 08/29/2025 10:00 AM EDT Appointment [facility] Inter[facility] Radiology [address] [place] [address] 08/29/2025 11:00 AM EDT Appointment [facility] Inter[facility] Radiology [address] [place] [address] 09/05/2025 10:00 AM EDT Appointment [facility] Inter[facility] Radiology [address] [place] [address] 09/05/2025 11:00 AM EDT Appointment [facility] Inter[facility] Radiology [address] [place] [address] documented as of this encounter Visit Diagnoses [...] documented as of this encounter Care Teams Lye Bath Operator Relationship Specialty Start Date End Date Alvarez Zimmer MD [address] [place] [address] PCP - General Family Medicine 12/07/24 Lea Fernando [address] [place] [address] Tractor Operator Helper Endocrinology 08/29/24 Rachel Ray APRN [address] [place] [address] Nurse Practitioner Gastroenterology 09/24/24 Tamera Isabel LPN VALUE-BASED TRANSFORMATION PROGRAM Licensed Practical Nurse 05/29/25 Monique Tapia LPN VALUE-BASED [place] [address] TCM Nurse 07/10/25 08/09/25 documented as of this encounter
--- OUTSIDE RECORDS SUMMARY | 2025-08-17 13:40 | XMS_ITS | Encounter Summary ---
Author Organization [facility] Address [address] [place] [address] Care Team Providers Care Skating Rink Ice Maker Name Role Phone Lea Fernando Unavailable [phone] Rachel Ray LIFE COACH Unavailable [phone] Alvarez Zimmer MD Primary Care Provider [phone] Tamera Isabel TRUCK HOPPER Unavailable Unavailabl e Reason for Visit * Reason Comments Med Refill Encounter Details Date Type Department Care Team (Late st Contact Info) Description 07/07/2025 Refill [facility] [address] [place] [address] Lisa Acuna, LIFE COACH, DNP [address] [place] [address] ETD (Eustachian tube dysfunction), bilateral [...] often do you attend chur ch or quaker services? Patient unable to answer 01/10/2025 Do you belong to any clubs o r organizations such as caodaism groups, [employer], [employer] or athletic groups, or school groups? Patient [...] often do you attend chur ch or quaker services? Never 05/29/2025 Do you belong to any clubs o r organizations such as caodaism groups, [employer], [employer]ov[employer] or athletic groups, or school groups? No [...] more drinks on one occasion? Never 06/25/2025 [facility] of Occupat ional Health - Occupational Stress [...] living in a mcfp (including now)? No 06/26/2025 CAGE ASSESSMENT Answer [...] drink first t kennedy in the morning (EYE-LICENSE DISTRIBUTOR) to steady your nerves or to get rid of a hangover? 0 06/25/2025 CAGE Questionnaire Score 0 025 Utilities Answer Date Recorded In the past 12 months has th [employer], gas, oil, or water company threatened [...] Description 08/20/2025 9:30 AM EDT Clinical Support [facility] [place] [address] [facility] [address] [place] [address] 08/20/2025 10:30 AM EDT Social Work [facility] [place] [address] [facility] [address] [place] [address] [place] [address] 08/20/2025 11:00 AM EDT Office Visit [facility] [place] [address] [facility] [address] [place] [address] Jude Duque MD [address] [facility] [address] [place] [address] 08/22/2025 11:15 AM EDT Appointment [facility] Interventional Radiology [address] [place] [address] 08/22/2025 12:15 PM EDT Appointment [facility] Interventional Radiology [address] [place] [address] 08/26/2025 1:00 PM EDT Office Visit [facility] Endocrinology [address] [place] [address] Miranda Hobson, LIFE COACH [address] [place] [address] 08/29/2025 10:00 AM EDT Appointment [facility] Inter[facility] Radiology [address] [place] [address] 08/29/2025 11:00 AM EDT Appointment [facility] Inter[facility] Radiology [address] [place] [address] 09/05/2025 10:00 AM EDT Appointment [facility] Inter[facility] Radiology [address] [place] [address] 09/05/2025 11:00 AM EDT Appointment [facility] Interventional Radiology [address] [place] [address] documented as of this encounter Visit Diagnoses [...] documented as of this encounter Care Teams Skating Rink Ice Maker Relationship Specialty Start Date End Date Alvarez Zimmer MD [address] [place] [address] PCP - General Family Medicine 12/07/24 Lea Fernando [address] [place] [address] Foreign Broadcast Specialist Endocrinology 08/29/24 Rachel Ray, LIFE COACH [address] [facility] [address] [place] [address] Nurse Practitioner Gastroenterology 09/24/24 Tamera Isabel, MG VALUE-BASED TRANSFORMATION PROGRAM Licensed Practical Nurse 05/29/25 documented as of this encounter
--- OUTSIDE RECORDS SUMMARY | 2025-08-17 13:41 | XMS_ITS | Clinical Summary ---
Author Organization [facility] Address [address] [place] [address] Care Team Providers Care Automotive Electrician Helper Name Role Phone Taina Lyles APRN Primary Care Provider [phone] Allergies No known active allergies Medications * [...] (11/02/2022): Added automatically from request for surgery [id number] Colon cancer screening 09/20/201910/26 Overview (09/20/2019): Added automatically from request for surgery [id number] Immunizations Immunization Administration Dates Next Due Flu [...] or slept in a half-way (including now)? No 12/01/2022 Abuse Screen Answer [...] 12/01/2022 GASTROSCOPY (EGD) 12/13/2024 12/13/2022, , 08/21/2019 INFLUENZA VACCINE 06/21/2025 09/10/2022, , 02/11/2021, Additional history exists LIPID [...] history exists Medical Devices Implanted Type Area Lead Level Designer Device Identifier Shelf Expiration Date Model / Serial / Lot Implant Implant Description:BILATERAL IOL Clip Gi Lig Hemostasis Resolution 2.8mm - [id number] Implanted:Qty: 1 on 09/27/2019 by Ross Johnson MD at [facility] Implant Data3Sixty BERNARDINO 01/02/2022 [id number] / / [id number] Dev Clip Quickclippro Fix 2300mm - [id number] Implanted:Qty: 2 on 09/27/2019 by Ross Johnson MD at [facility] Implant [facility] MARY 05/20/2022 HX20 2URA / / [id number] Dev Clip Quickclippro Fix 2300mm - [id number] Implanted:Qty: 2 on 09/27/2019 by Ross Johnson MD at [facility] Implant OLYMPUS MARY 04/20/2022 HX20 2URA / / [id number] Dev Clip Endo [id number] Contrl Rot 235cm - [id number] Implanted:Qty: 1 on 01/14/2023 by Lori Rm MD at [facility] Implant N/A: Perianal Guzu SCIENTIFIC BERNARDINO 09/27/2025 [id number] / / [id number] Procedures Procedure Name Priority Date/Time Associated Diagnosis [...] - 200 mg/dL 06/16/2024 12:02 AM EDT [facility] Triglycerides 113 0 - 150 mg/dL 06/16/2024 12:02 AM EDT [facility] HDL Cholesterol 51 40 - 60 mg/dL 06/16/2024 12:02 AM EDT [facility] LDL Cholesterol 79 0 - 100 mg/dL 06/16/2024 12:02 AM EDT [facility] VLDL Cholesterol 20 5 - 40 mg/dL 06/16/2024 12:02 AM T [facility] LDL/HDL Ratio 1.50 06/16/2024 12:02 AM EDT [facility] Blood Venipuncture / Unknown 06/15/2024 2:00 PM EDT 06/15/2024 3:40 PM EDT Narrative [facility] - 06/16/2024 12:02 AM EDT Cholesterol [...] MD LAB BLOOD ORDERABLES Final Resul t [facility]
[address] [place] [address], * Mammo Diagnostic Digital Tomosynthesis Bilateral With [...] compatible with focal fat necrosis. Taina Lyles APRN IMG MAMMOGRAPHY ORDERABLES Fin al Result * COLONOSCOPY (01/14/2023 9:24 AM EST) Lori Rm MD INTERFACE NEEDS Final Re sult * UPPER GI ENDOSCOPY (12/13/2022 7:32 AM EST) Lori Rm MD INTERFACE NEEDS Final Re sult * Hepatitis C Antibody (10/28/2022 8:43 AM EST) Hepatitis C Ab Non-Reacti ve Non-Reacti ve 10/28/2022 7:36 PM EST [facility] Blood Venipuncture / Unknown 10/28/2022 8:43 AM EST 10/28/2022 9:21 AM EST Narrative [facility] - 10/28/2022 7:36 PM EST Results may be falsely decreased if patient taking Biotin. Mira Amin APRN LAB BLOOD ORDERABLES Final Result [facility]
[address] [place] [address], from Last 3 Months or Most Recently Relevant to Health Maintenance Insurance [place] MEDICAID QMB HUMANA MEDICARE ADVANTAGE PPO Advance [...] Of Support Discussed With: Patient Care Teams Automotive Electrician Helper Relationship Specialty Start Date End Date Taina Lyles, ADRI PCP - General Nurse Practitioner 12/30/22
--- OUTSIDE RECORDS SUMMARY | 2025-08-17 13:41 | XMS_ITS | Encounter Summary ---
Author Organization [facility] Address [address] [place] [address] Care Team Providers Care Paperhanger Assistant Name Role Phone Lea Fernando Unavailable [phone] Rachel Ray DIGITAL MARKETING STRATEGIST Unavailable [phone] Alvarez Zimmer MD Primary Care Provider [phone] Tamera Isabel FOOD TRAY ASSEMBLER Unavailable UnavailAlina Bedolla RN Unavailable Unavailab Monique Che FOOD TRAY ASSEMBLER Unavailable Unavailable Encounter Details Date Type Department Care Team (Late st Contact Info) Description 06/20/2025 Telephone [facility] [place] Medicine [address] [place] [address] Alvarez Zimmer MD [address] [place] [address] Social History Tobacco Use Types [...] o r organizations such as buddhism groups, [employer], [employer] or athletic groups, or school groups? Patient [...] week 05/29/2025 How often do you attend [facility] ch or sikh services? Never 05/29/2025 Do you belong to any clubs o r organizations such as buddhism groups, eFlixs, YouGoDo or athletic groups, or school groups? No [...] more drinks on one occasion? Never 06/25/2025 [facility] of Occupat ional Health - Occupational Stress [...] drink first t kennedy in the morning (EYE-RIDER TICKET WORKER) to steady your nerves or to get rid of a hangover? 0 06/25/2025 CAGE Questionnaire Score 0 025 Utilities Answer Date Recorded In the past 12 months has th [employer], gas, oil, or water company threatened [...] plus. I did search an there is [facility] so I have faxed a [...] go to a facility. Best contact number: [phone] (mobile) Optimal time of day to reach [...] EDT Clinical Support [facility] [place] [address] [facility] [address] [place] [address] 08/20/2025 10:30 AM EDT Social Work [facility] [place] [address] [facility] [address] [place] [address] [place] [address] 08/20/2025 11:00 AM EDT Office Visit [facility] [address] [facility] [address] [place] [address] Jude Duque MD [address] [facility] [address] [place] [address] 08/22/2025 11:15 AM EDT Appointment [facility] Interventional Radiology [address] [place] [address] 08/22/2025 12:15 PM EDT Appointment [facility] Interventional Radiology [address] [place] [address] 08/26/2025 1:00 PM EDT Office Visit [facility] Endocrinology [address] [place] [address] Miranda Hobson P, DIGITAL MARKETING STRATEGIST [address] [place] [address] 08/29/2025 10:00 AM EDT Appointment [facility] Inter[facility] Radiology [address] [place] [address] 08/29/2025 11:00 AM EDT Appointment [facility] Inter[facility] Radiology [address] [place] [address] 09/05/2025 10:00 AM EDT Appointment [facility] Inter[facility] Radiology [address] [place] [address] 09/05/2025 11:00 AM EDT Appointment [facility] Inter[facility] Radiology [address] [place] [address] documented as of this encounter Visit Diagnoses [...] documented as of this encounter Care Teams Paperhanger Assistant Relationship Specialty Start Date End Date Alvarez Zimmer MD [address] [place] [address] PCP - General Family Medicine 12/07/24 Lea Fernando [address] [facility] [address] [place] [address] Pointer Machine Operator Endocrinology 08/29/24 Rachel Ray, DIGITAL MARKETING STRATEGIST [address] [facility] [address] [place] [address] Nurse Practitioner Gastroenterology 09/24/24 Tamera Isabel LPN VALUE-BASED TRANSFORMATION PROGRAM Licensed Practical Nurse 05/29/25 Alina Lovett, RN CH-VASCULAR & INTERVENTIONAL RADIOLOGY Registered Nurse 06/26/25 06/26/25 Monique Tapia LPN VALUE-[place] [address] TCM Nurse 07/10/25 08/09/25 documented as of this encounter
--- OUTSIDE RECORDS SUMMARY | 2025-08-17 13:41 | XMS_ITS | Encounter Summary ---
Author Organization [facility] Address [address] [place] [address] Care Team Providers Care Environmental Engineering Intern Name Role Phone Lea Fernando Unavailable [phone] Rachel Ray GUN REPAIR CLERK Unavailable [phone] Alvarez Zimmer MD Primary Care Provider [phone] Tamera Isabel BULB INSPECTOR Unavailable Unavailabl e Reason for Referral * Imaging (Routine) - Closed Specialty Diagnoses / Procedures Referred By Eder t Referred To Contact Radiology Diagnoses Other ascites Procedures US Guided Abdominal Paracentesis Preeti Andersen APRN [address] [place] [address] Phone: tel: fax: Referral ID Status Reason Start Date Expiration Date Visits Re quested Visits Authorized [id number] Closed 06/20/2025 12/20/2026 1 1 Encounter Details Date Type Department Care Team (Late st Contact Info) Description 06/20/2025 Orders Only [facility] Interventional Radiology [address] [place] [address] Preeti Andersen APRN [address] [place] [address] Other ascites (Primary Dx) Social History Tobacco [...] How often do you attend [facility] or zoroastrian services? Patient unable to answer [...] How often do you attend chur or zoroastrian services? Never 05/29/2025 Do you belong to [...] occasion? Never 06/05/2025 [facility] - Occupational Stress [...] drink first t kennedy in the morning (EYE-EXECUTIVE SECRETARY) to steady your nerves or to get rid of a hangover? 0 10/22/2024 CAGE Questionnaire Score 0 024 Utilities Answer Date Recorded In the past 12 months has e [employer], gas, oil, or water company threatened to [...] Description 08/20/2025 9:30 AM EDT Clinical Support [facility] [place] [address] [email or web address] [address] [place] [address] 08/20/2025 10:30 AM EDT Social Work [facility] [place] [address] [facility] [place] [address] Deysi Ortega [place], [place] [address] 08/20/2025 11:00 AM EDT Office Visit [facility] [place] [address] [email or web address] [address] [place] [address] Jude Duque MD [address] [facility] [address] [place] [address] 08/22/2025 11:15 AM EDT Appointment [facility] Interventional Radiology [address] [place] [address] 08/22/2025 12:15 PM EDT Appointment [facility] Interventional Radiology [address] [place] [address] 08/26/2025 1:00 PM EDT Office Visit [facility] Endocrinology [address] [place] [address] Miranda Hobson P, GUN REPAIR CLERK [address] [place] [address] 08/29/2025 10:00 AM EDT Appointment [facility] Inter[facility] Radiology [address] [place] [address] 08/29/2025 11:00 AM EDT Appointment [facility] Inter[facility] Radiology [address] [place] [address] 09/05/2025 10:00 AM EDT Appointment [facility] Inter[facility] Radiology [address] [place] [address] 09/05/2025 11:00 AM EDT Appointment [facility] Interventional Radiology [address] [place] [address] documented as of this encounter Results * [...] by ascites and intermittent hepatic hydrothorax. TECHNIQUE: Receiver: ADRI Andersen Secondary Treasury Consultant: None. Nurse: Padmini Technologist: Lilliana Phillips Dose: [...] complicated by ascites and intermittent hepatichydrothorax. TECHNIQUE: Receiver: ADRI Andersen Secondary Treasury Consultant: None. Nurse: Padmini Technologist: Lilliana Phillips Dose: [...] MD on 06/23/2025 9:14 PM us Preeti Andresen GUN REPAIR CLERK IMG US PROCEDURES Final Result documented [...] as of this encounter Care Teams Environmental Engineering Intern Relationship Specialty Start Date End Date Alvarez Zimmer MD [address] [place] [address] PCP - General Family Medicine 12/07/24 Lea Fernando [address] [place] [address] Portrait Photographer Endocrinology 08/29/24 Rachel aRy APRN [address] [place] [address] Nurse Practitioner Gastroenterology 09/24/24 Tamera Isabel LPN VALUE-BASED TRANSFORMATION PROGRAM Licensed Practical Nurse 05/29/25 documented as of this encounter
--- OUTSIDE RECORDS SUMMARY | 2025-08-17 13:41 | XMS_ITS | Encounter Summary ---
Author Organization [facility] Address [address] [place] [address] Care Team Providers Care Passenger Tire Inspector Name Role Phone Wilma Howard Ambar RISK ASSESSMENT CONSULTANT Primary Care Provider [phone] Lea Fernando Unavailable [phone] Rachel Ray RISK ASSESSMENT CONSULTANT Unavailable [phone] Taina Lyles RISK ASSESSMENT CONSULTANT Primary Care Provider Monique Tapia DATA MIGRATION CONSULTANT Unavailable Unavailable Alvarez Zimmer MD Primary Care Provider [phone] Shaniqua Trevino DATA MIGRATION CONSULTANT Unavailable Unavailable Tamera Isabel DATA MIGRATION CONSULTANT Unavailable UnavailAlina Bedolla RN Unavailable Unavailab Monique Che LPN Unavailable Unavailable Reason for Visit * Reason Onset Date Comments Med Refill Med Refill 08/11/2021 Encounter Details Date Type Department Care Team (Late st Contact Info) Description 07/28/2021 Refill [facility] Endocrinology [address] [place] [address] Deysi Antonio MD [address] [place] [address] Social History Tobacco Use Types [...] Dosage: Test Strips Preferred Pharmacy & Location: [facility] Days of medication remaining (if under 3 days please aida as urgent): Pt is out Best contact number and optimal time of day to reach caller: [phone] Additional comments/information from caller: Note: Please do [...] Description 08/20/2025 9:30 AM EDT Clinical Support [facility] [place] [address] [place] [address] 08/20/2025 10:30 AM EDT Social Work [facility] [place] [address] [place] [address] [place] [address] 08/20/2025 11:00 AM EDT Office Visit [facility] [address] [place] [address] Jude Duque MD [address] [place] [address] 08/22/2025 11:15 AM EDT Appointment [facility] Interventional Radiology [address] [place] [address] 08/22/2025 12:15 PM EDT Appointment [facility] Inter[facility] Radiology [address] [place] [address] 08/26/2025 1:00 PM EDT Office Visit [facility] Endocrinology [address] [place] [address] Miranda Hobson, RISK ASSESSMENT CONSULTANT [address] [facility] [address] [place] [address] 08/29/2025 10:00 AM EDT Appointment [facility] Inter[facility] Radiology [address] [place] [address] 08/29/2025 11:00 AM EDT Appointment [facility] [address] [place] [address] 09/05/2025 10:00 AM EDT Appointment [facility] Radiology [address] [place] [address] 09/05/2025 11:00 AM EDT Appointment [facility] Inter[facility] Radiology [address] [place] [address] documented as of this encounter Visit Diagnoses [...] documented as of this encounter Care Teams Passenger Tire Inspector Relationship Specialty Start Date End Date Wilma Howard, RISK ASSESSMENT CONSULTANT [address] [place] [address] [place] [address] PCP - General 04/03/21 09/30/24 Taina Lyles, RISK ASSESSMENT CONSULTANT [address] [place] [address] [place], [place] [address] PCP - General 10/01/24 12/06/24 Alvarez Zimmer MD [address] [place] [address] PCP - General Family Medicine 12/07/24 Lea Fernando [address] [place] [address] [address] [place] [address] Lead Refinery Supervisor Endocrinology 08/29/24 Rachel Ray, RISK ASSESSMENT CONSULTANT [address] [place] [address] Nurse Practitioner Gastroenterology 09/24/24 Monique Tapia LPN VALUE-BASED [place] [address] TCM Nurse 11/28/24 12/28/24 Shaniqua Trevino LPN TCM Nurse 01/15/25 02/14/25 Tamera Isabel LPN VALUE-BASED TRANSFORMATION PROGRAM Licensed Practical Nurse 05/29/25 Alina Lovett, RN CH-VASCULAR & INTERVENTIONAL RADIOLOGY Registered Nurse 06/26/25 06/26/25 Monique Tapia LPN VALUE-BASED [place] [address] TCM Nurse 07/10/25 08/09/25 documented as of this encounter
--- OUTSIDE RECORDS SUMMARY | 2025-08-17 13:41 | XMS_ITS | Encounter Summary ---
Author Organization [facility] Address [address] [place] [address] Care Team Providers Care Tax Manager Public Name Role Phone Lea Fernando Unavailable [phone] Rachel Ray RETURNING OFFICER Unavailable [phone] Alvarez Zimmer MD Primary Care Provider [phone] Tamera Isabel LABORATORY SPECIALIST Unavailable UnavailAlina Bedolla RN Unavailable Unavailab Monique Che LABORATORY SPECIALIST Unavailable Unavailable Reason for Visit * Reason Onset Date Comments HCN Clinical Concern/Question 06/21/2025 Encounter Details Date Type Department Care Team (Late st Contact Info) Description 06/21/2025 Telephone [facility] Medicine [address] [place] [address] Alvarez Zimmer MD [address] [place] [address] HCN Clinical Concern/Question Social History [...] week 01/10/2025 How often do you attend [facility] or orthodox services? Patient unable to answer 01/10/2025 Do you belong to any clubs o r organizations such as caodaism groups, [employer], fraternal or athletic groups, or school groups? [...] week 05/29/2025 How often do you attend [facility] ch or orthodox services? Never 05/29/2025 Do [...] more drinks on one occasion? Never 06/25/2025 [facility] [place] of Occupat ional Health - Occupational Stress [...] any time in the past 12 [facility], were you homeless or living in [...] drink first t kennedy in the morning (EYE-ELECTRICAL FOREMAN) to steady your nerves or to get [...] home palliative care. Best contact number: Other: [phone] Optimal time of day to reach caller: ANYTIME Additional comments/information from caller: None Note: Please do not reply to this message. Follow-up communication and further actions as a result of this message need to be communicated with the patient directly, if the patient is not active onMyChart. If the patient is active on MyChart, they will receive notification of the communication/outcome via Department of Health and Human Servicest. documented in this encounter Plan of Treatment Upcoming Encounters Date Type Department Care Team (Late st Contact Info) Description 08/20/2025 9:30 AM EDT Clinical Support [facility] [place] [address] [place] [address] 08/20/2025 10:30 AM EDT Social Work [facility] [place] [address] [place] [address] [place] [address] 08/20/2025 11:00 AM EDT Office Visit [facility] [address] [place] [address] Jude Duque MD [address] [place] [address] 08/22/2025 11:15 AM EDT Appointment [facility] Interventional Radiology [address] [place] [address] 08/22/2025 12:15 PM EDT Appointment [facility] Interventional Radiology [address] [place] [address] 08/26/2025 1:00 PM EDT Office Visit [facility] Endocrinology [address] [place] [address] Miranda Hobson P, RETURNING OFFICER [address] [place] [address] 08/29/2025 10:00 AM EDT Appointment [facility] Inter[facility] Radiology [address] [place] [address] 08/29/2025 11:00 AM EDT Appointment [facility] Inter[facility] Radiology [address] [place] [address] 09/05/2025 10:00 AM EDT Appointment [facility] Inter[facility] Radiology [address] [place] [address] 09/05/2025 11:00 AM EDT Appointment [facility] Inter[facility] Radiology [address] [place] [address] documented as of this encounter Visit Diagnoses [...] documented as of this encounter Care Teams Tax Manager Public Relationship Specialty Start Date End Date Alvarez Zimmer MD [address] [place] [address] PCP - General Family Medicine 12/07/24 Lea Fernando [address] [place] [address] Management Nurse Rn Endocrinology 08/29/24 Rachel Ray APRN [address] [place] [address] Nurse Practitioner Gastroenterology 09/24/24 Tamera Isabel LPN VALUE-BASED TRANSFORMATION PROGRAM Licensed Practical Nurse 05/29/25 Alina Lovett, RN CH-VASCULAR & INTERVENTIONAL RADIOLOGY Registered Nurse 06/26/25 06/26/25 Monique Tapia LPN VALUE-BASED [place] [address] TCM Nurse 07/10/25 08/09/25 documented as of this encounter
--- OUTSIDE RECORDS SUMMARY | 2025-08-17 13:41 | XMS_ITS ---
Author Organization [facility] Address [address] [place] [address] Care Team Providers Care Immunology Specialist Name Role Phone Lea Fernando Unavailable [phone] Rachel Ray BIOLOGY SPECIALIST Unavailable [phone] Alvarez Zimmer MD Primary Care Provider [phone] Tamera Isabel FRAMING MILL OPERATOR Unavailable Unavailabl e Transplant Episode Kidney Candidate [facility] ([place], [place]) [facility] Evaluation began on 10/30/2024 Marked as Active on 10/30/2024 Kidney CoordinatorWilma Arana RN Fax: N/A Email: N/A Scores Score Value Updated Exceptions/Reas ons CPRA Not available EPTS (Calc) 53 08/17/2025 [place] Organ Diagnosis Organ Primary Contributory Kidney Diabetes Mellitus - Type II Care Team Name Role Phone Fax Email Wilma Arana RN Kidney Coordinator [phone] N/A N/A Events Pre-Transplant Referred: 10/21/2024 Evaluation began: 10/30/2024 Appointments (07/17/2025 - 09/16/2025) When With Visit Type Description 08/20/2025 Transplant - Jaun Ortega ork - Office Visit 08/20/2025 Transplant LAB 08/20/2025 Transplant - Dixon Duque V isit - Transplant
--- OUTSIDE RECORDS SUMMARY | 2025-08-17 13:41 | XMS_ITS | Encounter Summary ---
Author Organization [facility], [facility] Address [address] [place] [address] Phone Care Team Providers Care Aquarist Name Role Phone Taina Lyles Primary Care Provider [phone] Reason for Visit * Reason Comments Med Refill Encounter Details Date Type Department Care Team (Late st Contact Info) Description 10/17/2021 Refill [facility], [address] [address] Kvng [place], [place] Social History [...] on filedocumented in this encounter Care Teams Aquarist Relationship Specialty Start Date End Date Taina Lyles [address] [place] [address] PCP - General 05/02/23 documented as of this encounter
--- OUTSIDE RECORDS SUMMARY | 2025-08-17 13:41 | XMS_ITS ---
Author Organization [facility] Address [address] [place] [address] Care Team Providers Care Canal Equipment Mechanic Name Role Phone Lea Fernando Unavailable [phone] Rachel Ray PROFESSOR OF MEDICINE Unavailable [phone] Alvarez Zimmer MD Primary Care Provider [phone] Tamera Isabel HORSE RIDER Unavailable Unavailabl e Transplant Episode Liver Candidate [facility] ([place], [place]) - 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) Care Team Name Role Phone Fax Email Wilma Arana RN Liver Coordinator [phone] N/A N/A Lea Reilly LCSW Addiction Social Worker [phone] N/A N/A Gerson Arora MD Surgeon [phone] N/A Wilma Howard APRN Primary Care Provider [phone] N/A Rachel Ray APRN Referring Physician [phone] N/A Events Pre-Transplant Referred: 09/24/2024 Evaluation began: 10/08/2024 Committee: 01/28/2025 Center waitlisted: 02/19/2025 Appointments (07/17/2025 - 09/16/2025) When With Visit Type Description 08/20/2025 Transplant - Jaun Ortega [place] - Office Visit 08/20/2025 Transplant LAB 08/20/2025 Transplant - Dixon Duque Office V isit - Transplant
--- OUTSIDE RECORDS SUMMARY | 2025-08-17 13:41 | XMS_ITS | Encounter Summary ---
Author Organization [facility] ([place], [place], [place], [place]) Address [address] [place] [address] Care Team Providers Care Tacker Elastic Band Name Role Phone Taina Lyles ADRI Primary Care Provider [phone] Encounter Details Date Type Department Care Team (Late st Contact Info) Description 07/07/2021 Transcribed Document [facility] Family Medicine [address] [place] [address] ProviderWilliam MD [address] [place] [address] Social History Tobacco Use Types Packs/Day Years [...] 07/07/2021 16:13 EDT by CHARLES CUEVAS Mkt Window Glass Installer-Utilization Mgt Final Discharge Planning Discharge Arrangements : Patient Post-Acute Information Patient Name: MONIKA ZIMMER Gender: Female : [birth year] Age: 60 Years No Post-Acute Placement(s) Listed No Post-Acute Service(s) Listed No [place] Referral(s) Listed Discharge To Care Management : Home/Residential/Jail or Self Care -01 CHARLES CUEVAS Mkt Window Glass Installer-Utilization Mgt - 07/07/2021 16:13 EDT documented in this encounter Plan of Treatment Not on file documented as of this encounter Visit Diagnoses Not on filedocumented in this encounter Care Teams Tacker Elastic Band Relationship Specialty Start Date End Date Taina Lyles, RADIAL DRILL PRESS OPERATOR FOR PLASTIC [address] [place] [address] PCP - General Nurse Practitioner 06/15/23 documented as of this encounter
--- OUTSIDE RECORDS SUMMARY | 2025-08-17 13:41 | XMS_ITS | Encounter Summary ---
Author Organization [facility] Address [address] [place] [address] Care Team Providers Care Manager Surgical Name Role Phone Wilma Howard Ambar PIPE FITTER HELPER Primary Care Provider [phone] Lea Fernando Unavailable [phone] Rachel Ray PIPE FITTER HELPER Unavailable [phone] Taina Lyles PIPE FITTER HELPER Primary Care Provider [phone] Monique Tapia PENSION AGENT Unavailable Unavailable Alvarez Zimmer MD Primary Care Provider [phone] Shaniqua Trevino PENSION AGENT Unavailable Unavailable Tamera Isabel PENSION AGENT Unavailable UnavailAlina Bedolla RN Unavailable Unavailab Monique Che LPN Unavailable Unavailable Reason for Visit * Reason Comments Med Refill Encounter Details Date Type Department Care Team (Late st Contact Info) Description 07/28/2021 Refill [facility] Terry Endocrinology [address] [place] [address] Deysi Antonio MD [address] [place] [address] Social History Tobacco Use Types [...] 08/20/2025 9:30 AM EDT Clinical Support [facility] Transplant [place] [address] [facility] [address] [place] [address] 08/20/2025 10:30 AM EDT Social Work [facility] [place] [address] [facility] [address] [place] [address] [place] [address] 08/20/2025 11:00 AM EDT Office Visit [facility] [place] [address] [facility] [address] [place] [address] Jude Duque MD [address] [place] [address] 08/22/2025 11:15 AM EDT Appointment [facility] Interventional Radiology [address] [place] [address] 08/22/2025 12:15 PM EDT Appointment [facility] Interventional Radiology [address] [place] [address] 08/26/2025 1:00 PM EDT Office Visit [facility] Endocrinology [address] [place] [address] Miranda Hobson, PIPE FITTER HELPER [address] [facility] [address] [place] [address] 08/29/2025 10:00 AM EDT Appointment [facility] Interventional Radiology [address] [place] [address] 08/29/2025 11:00 AM EDT Appointment [facility] Interventional Radiology [address] [place] [address] 09/05/2025 10:00 AM EDT Appointment [facility] Inter[facility] Radiology [address] [place] [address] 09/05/2025 11:00 AM EDT Appointment [facility] Interventional Radiology [address] [place] [address] documented as of this encounter Visit Diagnoses [...] as of this encounter Care Teams Manager Surgical Relationship Specialty Start Date End Date Wilma Howard APRN [address] [place] [address] [place] [address] PCP - General 04/03/21 09/30/24 Taina Lyles APRN [address] [place] [address] [place] [address] PCP - General 10/01/24 12/06/24 [facility] [place] [place] [address] PCP - General Family Medicine 12/07/24 Lea Fernando [address] [place] [address] Forms Analyst Endocrinology 08/29/24 Rachel Ray APRN [address] [place] [address] Nurse Practitioner Gastroenterology 09/24/24 Monique Tapia LPN VALUE-BASED [place] [address] TCM Nurse 11/28/24 12/28/24 Shaniqua Trevino LPN TCM Nurse 01/15/25 02/14/25 Tamera Isabel LPN VALUE-BASED TRANSFORMATION PROGRAM Licensed Practical Nurse 05/29/25 Alina Lovett, RN CH-VASCULAR & INTERVENTIONAL RADIOLOGY Registered Nurse 06/26/25 06/26/25 Monique Tapia LPN VALUE-BASED [place] [address] TCM Nurse 07/10/25 08/09/25 documented as of this encounter
--- OUTSIDE RECORDS SUMMARY | 2025-08-17 13:41 | XMS_ITS | Encounter Summary ---
Author Organization [facility] Address [address] [place] [address] Care Team Providers Care Director Of Video Analytics Name Role Phone Lea Fernando Unavailable [phone] Rachel Ray ROUTE PROCESS ADMINISTRATOR Unavailable [phone] Alvarez Zimmer MD Primary Care Provider [phone] Tamera Isabel STAINED GLASS ARTIST Unavailable Unavailabl Monique Garay LPN Unavailable Unavailable [...] more drinks on one occasion? Never 06/25/2025 [facility] of Occupat ional Health [...] drink first t kennedy in the morning (EYE-BIAS MACHINE OPERATOR HELPER) to steady your nerves or to [...] Transplant Center [address] [place] [address] 08/20/2025 10:30 AM EDT Social Work [facility] [place] [address] [place] [address] [place] [address] 08/20/2025 11:00 AM EDT Office Visit [facility] [address] [place] [address] Jude Duque MD [address] [place] [address] 08/22/2025 11:15 AM EDT Appointment [facility] Interventional Radiology [address] [place] [address] 08/22/2025 12:15 PM EDT Appointment [facility] Interventional Radiology [address] [place] [address] 08/26/2025 1:00 PM EDT Office Visit [facility] Endocrinology [address] [place] [address] Miranda Hobson P, ROUTE PROCESS ADMINISTRATOR [address] [place] [address] 08/29/2025 10:00 AM EDT Appointment [facility] Interventional Radiology [address] [place] [address] 08/29/2025 11:00 AM EDT Appointment [facility] Interventional Radiology [address] [place] [address] 09/05/2025 10:00 AM EDT Appointment [facility] Inter[facility] Radiology [address] [place] [address] 09/05/2025 11:00 AM EDT Appointment [facility] Interventional Radiology [address] [place] [address] documented as of this encounter Visit Diagnoses [...] of this encounter Care Teams Director Of Video Analytics Relationship Specialty Start Date End Date Alvarez Zimmer MD [address] [place] [address] PCP - General Family Medicine 12/07/24 Lea Fernando [address] [place] [address] [facility] Endocrinology 08/29/24 Rachel Ray APRN [address] [place] [address] Nurse Practitioner Gastroenterology 09/24/24 Tamera Isabel LPN VALUE-BASED TRANSFORMATION PROGRAM Licensed Practical Nurse 05/29/25 Monique Tapia LPN VALUE-[place] [address] TCM Nurse 07/10/25 08/09/25 documented as of this encounter
--- OUTSIDE RECORDS SUMMARY | 2025-08-17 13:41 | XMS_ITS ---
Author Organization [facility] Address [address] [place] [address] Care Team Providers Care Digital Production Manager Name Role Phone eLa Fernando Unavailable [phone] Rachel Ray JET OPERATOR Unavailable [phone] Alvarez Zimmer MD Primary Care Provider [phone] Tamera Isabel LPN Unavailable Unavailabl e Annual Wellness Status:Active (Active) Start date:05/29/2025 Enrollment date:05/29/2025 Enrollment reason:Identified using claims or encounter data Case Team Name Relationship Phone Tamera Isabel LPN(Responsible Staff) Licensed Practical Nurse Continued Care and Services Coordination
--- OUTSIDE RECORDS SUMMARY | 2025-08-17 13:41 | XMS_ITS | Encounter Summary ---
Author Organization [facility] Address [address] [place] [address] Care Team Providers Care Rocket Scientist Name Role Phone Lea Fernando Unavailable [phone] Rachel Ray SPOKE MAKER Unavailable [phone] Alvarez Zimmer MD Primary Care Provider [phone] Tamera Isabel UTILIZATION COORDINATOR Unavailable Unavailabl Alina Jennings RN Unavailable Unavailab le Reason for Visit * Reason Onset Date Comments Med Refill 06/23/2025 Encounter Details Date Type Department Care Team (Late st Contact Info) Description 06/23/2025 Refill [facility] [address], [address] [place] [address] Ar Dominique MD [address] [place] [address] Vitamin D deficiency Social History [...] o r organizations such as religious groups, Idea.mes, Socruise or athletic groups, or school groups? Patient [...] o r organizations such as religious groups, Idea.mes, [employer]ruise or athletic groups, or school groups? No [...] more drinks on one occasion? Never 06/25/2025 [facility] - Occupational Stress Questionnaire Answer [...] drink first t kennedy in the morning (EYE-OFFAL WORKER) to steady your nerves or to [...] No 06/26/2025 8:30 PM EDT Yoli Carrillo ntkamaljit 6. Suicidal Behavior (Lifetime) No 8:30 PM [...] Description 08/20/2025 9:30 AM EDT Clinical Support [facility] [place] [address] [place] [address] 08/20/2025 10:30 AM EDT Social Work [facility] [place] [address] [place] [address] [place] [address] 08/20/2025 11:00 AM EDT Office Visit [facility] [place] [address] [place] [address] Jude Duque MD [address] [place] [address] 08/22/2025 11:15 AM EDT Appointment [facility] [address] [place] [address] 08/22/2025 12:15 PM EDT Appointment [facility] [address] [place] [address] 08/26/2025 1:00 PM EDT Office Visit [facility] Endocrinology [address] [place] [address] Miranda Hobson P, SPOKE MAKER [address] [place] [address] 08/29/2025 10:00 AM EDT Appointment [facility] [address] [place] [address] 08/29/2025 11:00 AM EDT Appointment [facility] [address] [place] [address] 09/05/2025 10:00 AM EDT Appointment [facility] [address] [place] [address] 09/05/2025 11:00 AM EDT Appointment [facility] [address] [place] [address] documented as of this encounter Visit Diagnoses [...] documented as of this encounter Care Teams Rocket Scientist Relationship Specialty Start Date End Date Alvarez Zimmer MD [address] [place] [address] PCP - General Family Medicine 12/07/24 Lea Fernando [address] [facility] [address] [place] [address] Zipper Cutter Endocrinology 08/29/24 Rachel Ray, SPOKE MAKER [address] [facility] [place] [address] Nurse Practitioner Gastroenterology 09/24/24 Tamera Isabel, UTILIZATION COORDINATOR VALUE-BASED TRANSFORMATION PROGRAM Licensed Practical Nurse 05/29/25 Alina Lovett, RN CH-VASCULAR & INTERVENTIONAL RADIOLOGY Registered Nurse 06/26/25 06/26/25 documented as of this encounter
--- OUTSIDE RECORDS SUMMARY | 2025-08-17 13:41 | XMS_ITS | Clinical Summary ---
Author Organization [facility], [facility] Address [address] [place] [address] Phone Care Team Providers Care Road Contractor Name Role Phone Taina Lyles Primary Care Provider [phone] Allergies No known active allergies Medications * [...] Insurance [employer] Dual [employer] MCR/GINGER Care Teams Road Contractor Relationship Specialty Start Date End Date Taina Lyles [address] [place] [address] PCP - General 05/02/23
--- OUTSIDE RECORDS SUMMARY | 2025-08-17 13:41 | XMS_ITS | Encounter Summary ---
Author Organization [employer] ([place], [place], [place], [place]) Address [address] [place] [address] Care Team Providers Care Dietitian Assistant Name Role Phone Taina Lyles B2B SALES MANAGER Primary Care Provider [phone] Encounter Details Date Type Department Care Team (Late st Contact Info) Description 07/08/2021 Transcribed Document [facility] [place] Family Medicine [facility] [place] [address] ProviderWilliam MD [address] [place], [place] [address] Social History Tobacco Use Types Packs/Day Years [...] 07/08/2021 9:31 EDT Electronically signed by Luigi [facility] Conversion Other Sports Official Cerner at 03/07/2023 9:46 AM CDT documented in this encounter Plan of Treatment Not on file documented as of this encounter Visit Diagnoses Not on filedocumented in this encounter Care Teams Dietitian Assistant Relationship Specialty Start Date End Date Taina Lyles, B2B SALES MANAGER [address] [place] [address] PCP - General Nurse Practitioner 06/15/23 documented as of this encounter
--- OUTSIDE RECORDS SUMMARY | 2025-08-17 13:41 | XMS_ITS | Encounter Summary ---
Author Organization [employer] ([place], [place], [place], [place]) Address [address] [place] [address] Care Team Providers Care Director Critical Care Name Role Phone Taina Lyles APRN Primary Care Provider [phone] Encounter Details Date Type Department Care Team (Late st Contact Info) Description 09/15/2021 Transcribed Document [facility] [place] [facility] Family Medicine [address] [place] [address] ProviderWilliam MD [address] [place] [address] Social History Tobacco Use Types Packs/Day Years [...] Reyes MD - 09/15/2021 3:29 PM CDT [address] [address] OPERATIVE REPORT PATIENT IDENTIFICATION: MONIKA ZIMMER (Female - 1960) ACCOUNT / UNIT NUMBER: [id number] / [id number] PRIMARY CARE PHYSICIAN: ERYN PARKINSON APRN [place] [facility] [place] DATE / TIME: 09/15/21 0646 DISCHARGE [...] follow her diet, avoiding caffeine or nicotine. /[id number] Dictated By: VOLODYMYR VILLARREAL E-Signed By: ALDO [id number] [id number] [\R\ rep ct labl] [\R\ rep ct ivnm] Medical Disclaimer: This report is to be considered preliminary until reviewed and signed. documented in this encounter Plan of Treatment Not on file documented as of this encounter Visit Diagnoses Not on filedocumented in this encounter Care Teams Director Critical Care Relationship Specialty Start Date End Date Taina Lyles, ADRI [address] [place] [address] PCP - General Nurse Practitioner 06/15/23 documented as of this encounter
--- OUTSIDE RECORDS SUMMARY | 2025-08-17 13:42 | XMS_ITS | Referral Summary ---
Author Organization [employer] ([place], [place], [place], [place]) Address [address] [place] [address] Care Team Providers Care Worm Packer Name Role Phone Trupti Taina Burt APRN Primary Care Provider [phone] Allergies No known active allergies Medications * [...] Date Beau rded Speak language other than Luxembour[place] at home Not on file 12/01/2023 Want [...] on file Medical Devices Implanted Type Area Clinical Program Director Device Identifier Shelf Expiration Date Model / Serial / Lot Kt Lead Tined 1201 - [id number] Implanted:Qty: 1 on 07/01/2023 by Rory Villarreal MD at [facility] IMPLANTS N/A: Sacrum AXONICS 1201 / [id number] 5 / Neurostimulator Rechrgble R20 5101 - [id number] Implanted:Qty: 1 on 07/01/2023 by Rory Villarreal MD at [facility] IMPLANTS N/A: Sacrum AXONICS 5101 / [id number] 5 / Procedures Procedure Name Priority Date/Time [...] 4:24 AM EDT 07/02/2021 8:24 AM EDT [facility] Historical Provider PATHOLOGY/CYTOLOGY ORDE LOAN Final Result Performing Organization Address City/State/[facility] Co de Phone Number [facility] [address] [phone] from Last 3 Months or Most Recently Relevant to Health Maintenance Insurance [facility] MEDICARE PPO Care Teams Worm Packer Relationship Specialty Start Date End Date Taina Lyles, BUSINESS COMMUNICATIONS INSTRUCTOR [address] [place] [address] PCP - General Nurse Practitioner 06/15/23
--- OUTSIDE RECORDS SUMMARY | 2025-08-17 13:42 | XMS_ITS | Encounter Summary ---
Author Organization [employer] ([place], [place], [place]) Address [address] [place] [address] Care Team Providers Care Test Specialist Name Role Phone Taina Lyles ADRI Primary Care Provider [phone] Encounter Details Date Type Department Care Team (Late st Contact Info) Description 07/02/2021 Transcribed Document [facility] [place] [address] [place] [address] ProviderWilliam MD [address] [place], [place] [address] Social History Tobacco Use Types Packs/Day Years [...] EDT Electronically signed by Maddie Meyers Conversion Phototypesetting Equipment Monitor Certhierry at 03/07/2023 9:35 AM CDT documented in this encounter Plan of Treatment Not on file documented as of this encounter Visit Diagnoses Not on filedocumented in this encounter Care Teams Test Specialist Relationship Specialty Start Date End Date Taina Lyles, CUSTOMER LOYALTY REPRESENTATIVE [address] [place] [address] PCP - General Nurse Practitioner 06/15/23 documented as of this encounter
--- OUTSIDE RECORDS SUMMARY | 2025-08-17 13:42 | XMS_ITS | Encounter Summary ---
Author Organization [facility] Address [address] [place] [address] Care Team Providers Care Crutching Contractor Name Role Phone Lea Fernando Unavailable [phone] Rachel Ray FRONT END UI DEVELOPER Unavailable [phone] Alvarez Zimmer MD Primary Care Provider [phone] Tamera Isabel SERVICES COORDINATOR Unavailable UnavailAlina Bedolla RN Unavailable Unavailab Monique Che SERVICES COORDINATOR Unavailable Unavailable Encounter Details Date Type Department Care Team (Late st Contact Info) Description 06/14/2025 Telephone [facility] Medicine [address] [place] [address] Alvarez Zimmer MD [address] [place] [address] Social History Tobacco Use Types [...] o r organizations such as moravian groups, StudioEXs, Guest of a Guest or athletic groups, or school groups? Patient [...] 05/29/2025 How often do you attend [facility] or adventism services? Never 05/29/2025 Do you belong to any clubs o r organizations such as moravian groups, StudioEXs, Guest of a Guest or athletic groups, or school groups? No [...] more drinks on one occasion? Never 06/25/2025 [facility] Occupat ional Health - Occupational Stress [...] drink first t kennedy in the morning (EYE-SHELTERED WORKSHOP WORKER) to steady your nerves or to get rid of a hangover? 0 06/25/2025 CAGE Questionnaire Score 0 025 Utilities Answer Date Recorded In the past 12 months has th deskwolf, gas, oil, or water company threatened to [...] all sorted out and set up in [place]. Pt voiced understanding. * Telephone Encounter - [...] is now staying with her sister in [place] for this assistance. Patient will be staying with her sister until something is set up with palliative care. Patient wants to be back on the transplant list. Please call patient to advise/discuss. Best contact number: [phone] Optimal time of day to reach caller: [...] EDT Clinical Support [facility] [place] [address] [place] [address] 08/20/2025 10:[address] [facility] [place] [address] [facility] [place] [address] Deysi Ortega [place], [place] [address] 08/20/2025 11:00 AM EDT Office Visit [facility] [place] [address] [facility] [address] [place] [address] Jude Duque MD [address] [facility] [address] [place] [address] 08/22/2025 11:15 AM EDT Appointment [facility] Inter[facility]iology [address] [place] [address] 08/22/2025 12:15 PM EDT Appointment [facility] [address] [place] [address] 08/26/2025 1:00 PM EDT Office Visit [facility] Endocrinology [address] [place] [address] Miranda Hobson P, FRONT END UI DEVELOPER [address] [place] [address] 08/29/2025 10:00 AM EDT Appointment [facility] [address] [place] [address] 08/29/2025 11:00 AM EDT Appointment [facility] [address] [place] [address] 09/05/2025 10:00 AM EDT Appointment [facility] [address] [place] [address] 09/05/2025 11:00 AM EDT Appointment [facility] [address] [place] [address] documented as of this encounter Visit Diagnoses [...] documented as of this encounter Care Teams Crutching Contractor Relationship Specialty Start Date End Date Alvarez Zimmer MD [address] [place] [address] PCP - General Family Medicine 12/07/24 Lea Fernando [address] [facility] [address] [place] [address] Industrial Gas Service Helper Endocrinology 08/29/24 Rachel Ray, FRONT END UI DEVELOPER [address] [facility] [address] [place] [address] Nurse Practitioner Gastroenterology 09/24/24 Tamera Isabel LPN VALUE-BASED TRANSFORMATION PROGRAM Licensed Practical Nurse 05/29/25 Alina Lovett, RN CH-VASCULAR & INTERVENTIONAL RADIOLOGY Registered Nurse 06/26/25 06/26/25 Monique Tapia LPN VALUE-BASED [place] [address] TCM Nurse 07/10/25 08/09/25 documented as of this encounter
--- OUTSIDE RECORDS SUMMARY | 2025-08-17 13:42 | XMS_ITS | Clinical Summary ---
Author Organization [employer] ([place], [place], [place], [place]) Address [address] [place] [address] Care Team Providers Care Live Truck Technician Name Role Phone Wilfredolayla Taina Burt APRN Primary Care Provider [phone] Allergies No known active allergies Medications * [...] Date Beau rded Speak language other than Congolese at home Not on file 12/01/2023 Want [...] and Screening (12+) 07/01/2024 07/01/2023 COVID-19 VACCINE (1 - 2023-2 5 season) 2025 Influenza Vaccine (#1) 2025 9, 08/23/2018, 08/10/2016, Additional history exists Lipid Panel 05/26/2026 05/26/2023, 06/21, 09/09/2020 DTAP/TDAP/TD VACCINES (2 - T d or Tdap) 07/17/2029 07/17/2019 Shingles Vaccine (Zoster) Completed 10/30/2019, Medical Devices Implanted Type Area Operating Room Orderly Device Identifier Shelf Expiration Date Model / Serial / Lot Kt Lead Tined 1201 - [id number] Implanted:Qty: 1 on 07/01/2023 by Rory Villarreal MD at [facility] IMPLANTS N/A: Sacrum AXONICS 1201 / [id number] 5 / Neurostimulator Rechrgble R20 5101 - [id number] Implanted:Qty: 1 on 07/01/2023 by Rory Villarreal MD at [facility] IMPLANTS N/A: Sacrum AXONICS 5101 / [id number] 5 / Procedures Procedure Name Priority Date/Time [...] 4:24 AM EDT 07/02/2021 8:24 AM EDT [facility] Historical Provider PATHOLOGY/CYTOLOGY ORDE RABLES Final Result [facility] [address] [place] [id number] [phone] from Last 3 Months or Most Recently Relevant to Health Maintenance Insurance [employer] [address] Care Teams Live Truck Technician Relationship Specialty Start Date End Date Taina Lyles APRN [address] [place] [address] PCP - General Nurse Practitioner 06/15/23
--- OUTSIDE RECORDS SUMMARY | 2025-08-17 13:42 | XMS_ITS | Encounter Summary ---
Author Organization [employer] ([place], [place], [place], [place]) Address [address] [place] [address] Care Team Providers Care Binder Operator Name Role Phone Taina Lyles APRN Primary Care Provider Encounter Details Date Type Department Care Team (Late st Contact Info) Description 07/02/2021 Transcribed Document [facility] Family Medicine [address] [place] [address] ProviderWilliam MD [address] [place] [address] Social History Tobacco Use Types Packs/Day Years [...] 10:49 AM CDT Electronically signed by Luigi [facility] Conversion Industrial Relations Representative Cerner at 03/07/2023 9:52 AM CDT documented in this encounter Plan of Treatment Not on file documented as of this encounter Visit Diagnoses Not on filedocumented in this encounter Care Teams Binder Operator Relationship Specialty Start Date End Date Taina Lyles APRN [address] [facility] [address] PCP - General Nurse Practitioner 06/15/23 documented as of this encounter
--- OUTSIDE RECORDS SUMMARY | 2025-08-17 13:42 | XMS_ITS | Encounter Summary ---
Author Organization [employer] ([place], [place], [place], [place]) Address [address] [place] [address] Care Team Providers Care Radiographer Name Role Phone Taina Lyles APRN Primary Care Provider [phone] Encounter Details Date Type Department Care Team (Late st Contact Info) Description 09/09/2020 Transcribed Document [facility] [place] [address] [place] [address] ProviderWilliam MD [address] [place] [address] Social History Tobacco Use Types Packs/Day Years [...] 12:00 PM CDT Electronically signed by Lu[facility] Conversion Software Packager Cerner at 03/07/2023 9:57 AM CDT documented in this encounter Plan of Treatment Not on file documented as of this encounter Visit Diagnoses Not on filedocumented in this encounter Care Teams Radiographer Relationship Specialty Start Date End Date Taina Lyles APRN [address] [place], [place] [address] [address] PCP - General Nurse Practitioner 06/15/23 documented as of this encounter
--- OUTSIDE RECORDS SUMMARY | 2025-08-17 13:42 | XMS_ITS | Clinical Summary ---
Author Organization [facility] Address [address] [place] [address] Care Team Providers Care Cardiovascular Tech Name Role Phone Lea Fernando Unavailable [phone] Rachel Ray LEAN MANUFACTURING ENGINEER Unavailable [phone] Alvarez Zimmer MD Primary Care Provider [phone] Tamera Isabel TRANSIT COACH OPERATOR Unavailable Unavailabl e Allergies No known active allergies Medications Multiple Vitamins-Minera ls (COMPLETE WOMENS PO) Take 1 tablet by mouth in the morning. Active calcium carbonate EX (Tums E-X) 750 MG chewable tablet Chew 1 tablet (750 mg) 1 (one) time each day. 5 Active zinc sulfate (Zincate) 220 (50 Zn) MG capsule Take 1 capsule by mouth in the morning and 1 capsule before bedtime. 60 capsule 2 5 Active ciprofloxacin (Cipro) 500 MG tabletIndicatio ns:Altered mental status, unspecified altered mental status type Take 1 tablet by mouth daily. 90 tablet 1 5 Active Magnesium Oxide, Laxative, 500 MG tabletIndicatio ns:Hypomagnesem ia Take 1 tablet by mouth daily. 90 tablet 3 5 Active cholecalciferol (Vitamin D-3) 25 MCG (1000 UT) tablet Take 1 tablet by mouth daily. 90 tablet 2 5 Active Zegalogue 0.6 MG/0.6ML solution auto-injectorIn dications:Type 2 diabetes mellitus with hyperglycemia, with long-term current use of insulin Inject 0.6 mg under the skin 1 time as needed (for extreme hypoglycemia) for up to 1 dose. 0.6 mL 2 5 Active Abaloparatide (Tymlos) 3120 MCG/1.56ML solution pen-injector Inject 80 mcg under the skin daily. 1.56 mL 2 5 Active lactulose (Chronulac) 10 GM/15ML solution Take 30 mL by mouth 3 times a day. 2700 mL 11 5 Active rifAXIMin (Xifaxan) 550 MG tabletIndicatio ns: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 ) Take 1 tablet by mouth 2 times a day. 60 tablet 11 5 06/03/20 26 Active calcitriol (Rocaltrol) 0.25 MCG capsuleIndicati ons:Chronic kidney disease, stage 3b (CMS/HCC) Take 1 capsule by mouth daily. 30 capsule 5 12/07/19 26 Active ergocalciferol (Vitamin D-2) 1.25 MG (66038 UT) capsuleIndicati ons:Vitamin D deficiency Take 1 capsule by mouth 1 time per week. 4 capsule 5 02/07/20 26 Active capsaicin (Zostrix-HP) 0.075 % topical cream Apply 1 Application topically daily as needed (Leg and foot cramps). Active cetirizine (ZyrTEC) 10 MG tabletIndicatio ns:ETD (Eustachian tube dysfunction), bilateral Take 1 tablet by mouth daily. 30 tablet 5 Active insulin glargine-yfgn 100 UNIT/ML injection vial Inject 24 Units under the skin daily. 5 Active midodrine (Proamatine) 5 MG tablet Take 3 tablets by mouth 3 times a day. 5 Active benzonatate (Tessalon) 100 MG capsule Take 1 capsule by mouth 3 times a day as needed for cough. Do not crush or chew. 5 Active bisacodyl (Dulcolax) 10 MG suppository Insert 1 suppository into the rectum daily as needed for constipation. Active carboxymethylce llulose PF (Refresh Plus) 0.5 % ophthalmic solution Administer 1 drop into both eyes as needed for dry eyes. Active hydrOXYzine HCl (Atarax) 25 MG tablet Take 0.5 tablets by mouth at night as needed for itching. 5 Active senna (Senokot) 8.6 MG tablet Take 1 tablet by mouth nightly. Active polyethylene glycol (Miralax) 17 g packet Take 17 g by mouth 2 times a day. Active melatonin tablet Take 1 tablet by mouth at night as needed for sleep. Active insulin lispro (Admelog) 100 UNIT/ML injection Inject 0-10 Units under the skin 3 times a day with meals. See After Visit Summary for instructions on how to take your insulin. 5 Active insulin lispro (Admelog) 100 UNIT/ML injection Inject 0-3 Units under the skin 2 times a night. See After Visit Summary for instructions on how to take your insulin. Active prochlorperazin e (Compazine) 5 MG tablet Take 1 tablet by mouth every 8 hours as needed for nausea or vomiting. 60 tablet 2 5 09/07/20 25 Active Active Problems Problem Noted Date Diagnosed [...] to Chair TID, q4 turns - Ongoing C discussions - Palliative follow up outpatient Assessment [...] at this time has elected to pursue [facility] placement and would like to speak with palliative care to learn more about their services - SW working to find LTC facility placement - palliative consulted PLAN - Delirium protocols - Continue Up to Chair TID, q4 turns - Ongoing GOC discussions Assessment & Plan (07/05/2025 8:28 AM EDT): - Patient at this time has elected to pursue [facility] placement and would like to speak with palliative care to learn more about their services - SW working to find LTC facility placement - palliative consulted PLAN - Delirium protocols - Continue Up to Chair TID, q4 turns - Ongoing GOC discussions Assessment & Plan (07/04/2025 9:28 AM EDT): - Patient at this time has elected to pursue Senior [facility] placement and would like to speak with palliative care to learn more about their services - SW working to find LTC facility placement - palliative consulted PLAN - Delirium protocols - Continue Up to Chair TID, q4 turns - Ongoing GOC discussions Assessment & Plan (07/03/2025 8:24 AM EDT): - Patient at this time has elected to pursue [facility] placement and would like to speak [...] at this time has elected to pursue [facility] placement and would like to speak [...] concern and would prefer JOHN or terminal block assembler care pending influence on ability to receive transplant - Patient endorsing some burning discomfort that begins in buttocks and radiates down lateral leg, does not feel as though she is getting moved much - Concerned with possible disorientation PLAN - Transplant service to evaluate today and determine if terminal block assembler care would be a barrier to future [...] Patient will NOT need neutropenic precautions at [facility] outside of the hospital. Assessment & Plan (07/01/2025 1:10 PM EDT): - WBC 3.15 (baseline 4.0) with 1.79 absolute neutrophils, neutropenia resolved today - RBC 2.81 (baseline 3.0), platelets 47 (baseline 55) - Stable up trending toward baseline overall - Patient has a history of SLE on chart review JORDAN positive though not on medication - Stopped seeing roll hand after being dismissed for missing too many [...] though not on medication - Stopped seeing roll hand after being dismissed for missing too many [...] - Continue daily vit D 1000 U; 74465 U to be ordered on 06/30 if [...] - Continue daily vit D 1000 U; 88292 U to be ordered on 06/30 if [...] - Continue daily vit D 1000 U; 54418 U to be ordered on 06/30 if [...] - Continue daily vit D 1000 U; 12433 U to be ordered on 06/30 if [...] - Continue daily vit D 1000 U; 59207 U to be ordered on 06/30 if [...] daily, Vit D 1000 U daily and 31572 U weekly (Sundays) PLAN: - Admitted to [...] - Continue daily vit D 1000 U; 19839 U to be ordered on 06/30 if [...] at this time has elected to pursue Senior Care Care placement and would like to speak with palliative care to learn more about their services - SW working to find LTC facility placement - palliative consulted PLAN - Delirium protocols - Continue Up to Chair TID, q4 turns - Ongoing GOC discussions Assessment & Plan (07/05/2025 8:28 AM EDT): - Patient at this time has elected to pursue [facility] placement and would like to speak with palliative care to learn more about their services - SW working to find LTC facility placement - palliative consulted PLAN - Delirium protocols - Continue Up to Chair TID, q4 turns - Ongoing GOC discussions Assessment & Plan (07/04/2025 9:28 AM EDT): - Patient at this time has elected to pursue Senior Care Care placement and would like to speak with palliative care to learn more about their services - SW working to find LTC facility placement - palliative consulted PLAN - Delirium protocols - Continue Up to Chair TID, q4 turns - Ongoing GOC discussions Assessment & Plan (07/03/2025 8:24 AM EDT): - Patient at this time has elected to pursue [facility] placement and would like to speak [...] at this time has elected to pursue Senior Care Care placement and would like to speak [...] Consider Palliative consult AM 07/03 - Ongoing [facility] discussions Assessment & Plan (07/01/2025 9:16 AM EDT): - PTOT recs home health - Patient and family have significant concern and would prefer JOHN or terminal block assembler care pending influence on ability to receive transplant - Patient endorsing some burning discomfort that begins in buttocks and radiates down lateral leg, does not feel as though she is getting moved much - Concerned with possible disorientation PLAN - Transplant service to evaluate today and determine if terminal block assembler care would be a barrier to future [...] recommended home health; patient and family requested care home facility PLAN - Contacted transplant service to [...] recommended home health; patient and family requested care home facility PLAN - Plan for placement in long-term care Assessment & Plan (06/29/2025 8:30 AM EDT): - Patient reports poor PO intake at home in s/o large-volume ascites - Family involved in and amenable to discussion of placement; concerned for declining ability to perform ADLs - PT/OT recommended home health; patient and family requested care home facility PLAN - Plan for placement in [...] consulted; recs appreciated - Patient agreeable to care home facility Assessment & Plan (06/26/2025 3:57 PM [...] - Continue daily vit D 1000 U; 64358 U to be ordered on 06/30 if [...] - Continue daily vit D 1000 U; 84477 U to be ordered on 06/30 if [...] - Continue daily vit D 1000 U; 71978 U to be ordered on 06/30 if [...] - Continue daily vit D 1000 U; 68608 U to be ordered on 06/30 if [...] - Continue daily vit D 1000 U; 85129 U to be ordered on 06/30 if [...] daily, Vit D 1000 U daily and 04274 U weekly (Sundays) PLAN: - Admitted to [...] - Continue daily vit D 1000 U; 20536 U to be ordered on 06/30 if [...] - Continue daily vit D 1000 U; 68385 U to be ordered on 06/30 if [...] - Continue daily vit D 1000 U; 94977 U to be ordered on 06/30 if [...] - Continue daily vit D 1000 U; 16077 U to be ordered on 06/30 if [...] - Continue daily vit D 1000 U; 24041 U to be ordered on 06/30 if [...] - Continue daily vit D 1000 U; 71290 U to be ordered on 06/30 if [...] daily, Vit D 1000 U daily and 31918 U weekly (Sundays) PLAN: - Admitted to [...] - Continue daily vit D 1000 U; 23926 U to be ordered on 06/30 if [...] Chronic; on BiPAP nightly at home - is bringing home BiPAP this afternoon PLAN - Continue nightly BiPAP at 10/26 per RT recs; RT to adjust settings as appropriate Assessment & Plan (06/26/2025 3:57 PM EDT): - Chronic; on BiPAP nightly at home - is bringing home BiPAP this afternoon PLAN - Continue nightly BiPAP at 10/26 per RT recs; RT to adjust settings as appropriate Assessment & Plan (06/26/2025 2:33 AM EDT): Continue nightly BiPAP at 10/26 per RT recs; RT to adjust settings [...] Plan (06/30/2025 1:48 PM EDT): - 06/28 FLOTATION TANK OPERATOR diet recommendations; see below - Patient continues to eat full diet without difficulty PLAN - Continue to hold omeprazole Assessment & Plan (06/29/2025 12:33 PM EDT): - FLOTATION TANK OPERATOR attempted to see patient 06/27; was in procedure - 06/28 FLOTATION TANK OPERATOR diet recommendations: IDDSI Level 7 - Regular and IDDSI Level 0- Thin PLAN - Continue to hold omeprazole Assessment & Plan (06/29/2025 8:30 AM EDT): - FLOTATION TANK OPERATOR attempted to see patient 8/7; was in procedure PLAN - Awaiting FLOTATION TANK OPERATOR eval - Continue to hold omeprazole Assessment & Plan (06/27/2025 3:08 PM EDT): - Chronic; advised to hold home omeprazole at most recent nephrology appointment due to concern for CARLOTTA PLAN - Continue to hold omeprazole - Ordered FLOTATION TANK OPERATOR consult; appreciate recommendations Assessment & Plan (06/26/2025 3:57 PM EDT): - Chronic; advised to hold home omeprazole at most recent nephrology appointment due to concern for CARLOTTA PLAN - Continue to hold omeprazole - Ordered FLOTATION TANK OPERATOR consult; appreciate recommendations Assessment & Plan (06/26/2025 [...] - Continue daily vit D 1000 U; 63266 U to be ordered on 06/30 if [...] - Continue daily vit D 1000 U; 71106 U to be ordered on 06/30 if [...] - Continue daily vit D 1000 U; 09941 U to be ordered on 06/30 if [...] - Continue daily vit D 1000 U; 26424 U to be ordered on 06/30 if [...] - Continue daily vit D 1000 U; 01810 U to be ordered on 06/30 if [...] daily, Vit D 1000 U daily and 04970 U weekly (Sundays) PLAN: - Admitted to [...] - Continue daily vit D 1000 U; 93770 U to be ordered on 06/30 if [...] at this time has elected to pursue Senior [facility] Care placement and would like to speak with palliative care to learn more about their services - SW working to find LTC facility placement - palliative consulted PLAN - Delirium protocols - Continue Up to Chair TID, q4 turns - Ongoing GOC discussions Assessment & Plan (07/05/2025 8:28 AM EDT): - Patient at this time has elected to pursue [facility] placement and would like to speak with palliative care to learn more about their services - SW working to find LTC facility placement - palliative consulted PLAN - Delirium protocols - Continue Up to Chair TID, q4 turns - Ongoing GOC discussions Assessment & Plan (07/04/2025 9:28 AM EDT): - Patient at this time has elected to pursue [facility] placement and would like to speak with palliative care to learn more about their services - SW working to find LTC facility placement - palliative consulted PLAN - Delirium protocols - Continue Up to Chair TID, q4 turns - Ongoing GOC discussions Assessment & Plan (07/03/2025 8:24 AM EDT): - Patient at this time has elected to pursue [facility] placement and would like to speak [...] at this time has elected to pursue [facility] placement and would like to speak [...] concern and would prefer JOHN or terminal block assembler care pending influence on ability to receive transplant - Patient endorsing some burning discomfort that begins in buttocks and radiates down lateral leg, does not feel as though she is getting moved much - Concerned with possible disorientation PLAN - Transplant service to evaluate today and determine if terminal block assembler care would be a barrier to future [...] recommended home health; patient and family requested care home facility PLAN - Contacted transplant service to [...] recommended home health; patient and family requested care home facility PLAN - Plan for placement in long-term care Assessment & Plan (06/29/2025 8:30 AM EDT): - Patient reports poor PO intake at home in s/o large-volume ascites - Family involved in and amenable to discussion of placement; concerned for declining ability to perform ADLs - PT/OT recommended home health; patient and family requested care home facility PLAN - Plan for placement in [...] consulted; recs appreciated - Patient agreeable to care home facility Assessment & Plan (06/26/2025 3:57 PM [...] 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 Assessment [...] Plan (06/30/2025 1:48 PM EDT): - 06/28 FLOTATION TANK OPERATOR diet recommendations; see below - Patient continues to eat full diet without difficulty PLAN - Continue to hold omeprazole Assessment & Plan (06/29/2025 12:33 PM EDT): - FLOTATION TANK OPERATOR attempted to see patient 8/7; was in procedure - 06/28 FLOTATION TANK OPERATOR diet recommendations: IDDSI Level 7 - Regular and IDDSI Level 0- Thin PLAN - Continue to hold omeprazole Assessment & Plan (06/29/2025 8:30 AM EDT): - FLOTATION TANK OPERATOR attempted to see patient 8/7; was in procedure PLAN - Awaiting FLOTATION TANK OPERATOR eval - Continue to hold omeprazole Assessment & Plan (06/27/2025 3:08 PM EDT): - Chronic; advised to hold home omeprazole at most recent nephrology appointment due to concern for CARLOTTA PLAN - Continue to hold omeprazole - Ordered FLOTATION TANK OPERATOR consult; appreciate recommendations Assessment & Plan (06/26/2025 3:57 PM EDT): - Chronic; advised to hold home omeprazole at most recent nephrology appointment due to concern for CARLOTTA PLAN - Continue to hold omeprazole - Ordered FLOTATION TANK OPERATOR consult; appreciate recommendations Assessment & Plan (06/26/2025 [...] - Continue daily vit D 1000 U; 66031 U to be ordered on 06/30 if [...] - Continue daily vit D 1000 U; 30295 U to be ordered on 06/30 if [...] - Continue daily vit D 1000 U; 46600 U to be ordered on 06/30 if [...] - Continue daily vit D 1000 U; 53159 U to be ordered on 06/30 if still admitted - Renally dose medications and avoid nephrotoxic agents Assessment & Plan (06/26/2025 3:57 PM EDT): - MELD 3.0: 27 on 06/26 - MELD-Na: 25 on 06/26 - Creatinine 1.1-1.3 at baseline; 2.3 on 8/6 - Vitals stable; Vitals q4h - Daily [...] - Continue daily vit D 1000 U; 21110 U to be ordered on 06/30 if [...] daily, Vit D 1000 U daily and 25512 U weekly (Sundays) PLAN: - Admitted to [...] - Continue daily vit D 1000 U; 58179 U to be ordered on 06/30 if [...] - Continue daily vit D 1000 U; 91350 U to be ordered on 06/30 if [...] - Continue daily vit D 1000 U; 65843 U to be ordered on 06/30 if [...] - Continue daily vit D 1000 U; 11407 U to be ordered on 06/30 if [...] - Continue daily vit D 1000 U; 61928 U to be ordered on 06/30 if [...] - Continue daily vit D 1000 U; 07411 U to be ordered on 06/30 if [...] daily, Vit D 1000 U daily and 65953 U weekly (Sundays) PLAN: - Admitted to [...] - Continue daily vit D 1000 U; 59714 U to be ordered on 06/30 if [...] (07/17/2021): Added automatically from request for surgery [id number] Mixed hearing loss of right ear 08/24/2019 [...] dysfunction) 07/13/2018 07/03/2025 Chronic throat clearing 05/17/2018 03/0 03/2025 Laryngopharyngeal reflux (LPR) 05/17/2018 01/23/2025 Nasal septal deviation 05/17/201801/23 Nasal turbinate hypertrophy 05/17/2018 01/23/2025 Encounters Date Type Department Care Team Description 08/16/2025 Telephone [facility] Endocrinology [address] [place] [address] Sharif Moreno, DPM HCN - Patient Message 2025 8:47 AM EDT - 2025 11:59 PM EDT Hospital Encounter [facility] Inter[facility] Radiology [address] [place] [address] Kami Cool, RN Alcoholic cirrhosis of liver with ascites (CMS/HCC); Other ascites Discharge Disposition: Home or Self Care 2025 Travel 08/08/2025 2:27 PM EDT - 08/08/2025 11:59 PM EDT Hospital Encounter [facility] Rad[facility] [address] [place] [address] Discharge Disposition: Home or Self Care 08/08/2025 8:51 AM EDT - 08/08/2025 2:26 PM EDT Hospital Encounter [facility] [address] [place] [address] Mariam Thomas RN Other ascites Discharge Disposition: Home or Self Care 08/08/2025 Travel 08/05/2025 Travel 08/01/2025 12:48 PM EDT - 08/01/2025 11:59 PM EDT Hospital Encounter [facility] [address] [place] [address] Discharge Disposition: Home or Self Care 08/01/2025 8:36 AM EDT - 08/01/2025 12:47 PM EDT Hospital Encounter [facility] [address] [place] [address] Pretty Enriquez RN Other ascites Discharge Disposition: Home or Self Care 08/01/2025 Travel 07/31/2025 Travel 07/25/2025 1:20 PM EDT - 07/25/2025 11:59 PM EDT Hospital Encounter [facility] [address] [place] [address] Discharge Disposition: Home or Self Care 07/25/2025 8:57 AM EDT - 07/25/2025 1:19 PM EDT Hospital Encounter [facility] [address] [place] [address] Kandice Silva, RN Pleural effusion associated with hepatic disorder (Primary Dx); Shortness of breath; Pleural effusion; Other ascites Discharge Disposition: Home or Self Care 07/25/2025 Travel 07/24/2025 Travel 07/19/2025 Patient Outreach POPULATION [address], [address] [place] [address] [facility] 07/18/2025 12:08 PM EDT - 07/18/2025 11:59 PM EDT Hospital Encounter [facility] [address] [place] [address] Discharge Disposition: Home or Self Care 07/18/2025 9:08 AM EDT - 07/18/2025 12:07 PM EDT Hospital Encounter [facility] [address] [place] [address] Stu Samayoa Shortness of breath; Pleural effusion; Other ascites Discharge Disposition: Home or Self Care 07/18/2025 Travel 07/11/2025 12:10 PM EDT - 07/11/2025 11:59 PM EDT Hospital Encounter [facility] [address] [place] [address] Discharge Disposition: Home or Self Care 07/11/2025 9:01 AM EDT - 07/11/2025 12:09 PM EDT Hospital Encounter [facility] [address] [place] [address] Stacy Houston RN Shortness of breath; Pleural effusion; Other ascites Discharge Disposition: Home or Self Care 07/11/2025 Travel 07/10/2025 Patient Outreach [facility] [address], [address] [place] [address] [facility] 07/07/[address] [address] Lisa Acuna, LEAN MANUFACTURING ENGINEER, DNP ETD (Eustachian tube dysfunction), bilateral 07/04/2025 Travel 07/03/2025 Travel 06/27/2025 Travel 06/26/2025 Patient Outreach POPULATION HEALTH [address] [facility] [address], [address] [place] [address] Alina Lovett, RN Link 06/25/2025 2:14 PM EDT - 07/09/2025 1:19 PM EDT Hospital Encounter [facility] Inpatient [address] [place] [address] Kadie Mauro MD [place], Chandler A, MD [...] (CMS/HCC) Discharge Disposition: Home or Self Care 06/25/2025 1:00 PM EDT Office Visit [facility] Nephrology, Bone & Mineral Metabolism [address], [address] [place] [address] Arnulfo Joy MD Cirrhosis of liver with ascites, unspecified hepatic cirrhosis type (CMS/HCC) (Primary Dx); CARLOTTA (acute kidney injury) (CMS/HCC); Chronic kidney disease, stage 3b (CMS/HCC); Type 2 diabetes mellitus with hyperglycemia, with long-term current use of insulin ([facility]) 06/25/2025 Travel 06/23/2025 Orders Only External Location [address] [place] [address] Kandice Maldonado, LEAN MANUFACTURING ENGINEER 06/23/2025 Orders Only External Location [address] [place] [address] Kandice Maldonado, LEAN MANUFACTURING ENGINEER 06/23/2025 Orders Only External Location [address] [place] [address] Kandice Maldonado, LEAN MANUFACTURING ENGINEER 06/23/2025 Refill [facility] Bone & Mineral Metabolism [address], [address] [place] [address] Ar Dominique MD Vitamin D deficiency 06/21/[address] [address] Alvarez Zimmer MD HCN Clinical Concern/Question 06/20/2025 1:04 PM EDT - 06/20/2025 11:59 PM EDT Hospital Encounter [facility] [address] [place] [address] Discharge Disposition: Home or Self Care 06/20/2025 9:03 AM EDT - 06/20/2025 1:03 PM EDT Hospital Encounter [facility] Inter[facility] Radiology [address] [place] [address] Toribio Shanthi Other ascites Discharge Disposition: Home or Self Care 06/20/2025 Telephone [facility] [address] [place] [address] Alvarez Zimmer MD 06/20/2025 Orders Only [facility] Vascular Interventional Radiology [address] [place] [address] [place] [address] Preeti Andersen, LEAN MANUFACTURING ENGINEER Other ascites (Primary Dx) 06/20/2025 Travel 06/17/2025 Telephone [facility] Endocrinology [address] [place] [address] Deysi Antonio MD 06/14/2025 Telephone [facility] [address] [place] [address] Alvarez Zimmer MD 06/14/2025 Orders Only [facility] [address] [place] [address] Alvarez Zimmer MD 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) (CMS/HCC) (Primary Dx) 06/14/2025 Orders Only [facility] [address] [place] [address] Marianna Gordon, LEAN MANUFACTURING ENGINEER Shortness of breath (Primary Dx); Pleural effusion; Other ascites 06/14/2025 Telephone [facility] [address] [place] [address] Alvarez Zimmer MD 06/14/2025 Orders Only [facility] [address] [place] [address] Marianna Gordon APRN Other ascites (Primary Dx); Pleural effusion; Shortness of breath; Alcoholic cirrhosis of liver with ascites (CMS/HCC) 06/13/2025 1:32 PM EDT - 06/13/2025 11:59 PM EDT Hospital Encounter [facility] [address] [place] [phone] Discharge Disposition: Home or Self Care 06/13/2025 10:56 AM EDT - 06/13/2025 1:31 PM EDT Hospital Encounter [facility] Inter[facility]iology [address] [place] [phone] Alvarez Mcclure Other ascites Discharge Disposition: Home or Self Care 06/13/2025 Travel 06/12/2025 Travel 06/12/2025 Orders Only [facility] [address] [place] [address] Alvarez Zimmer MD 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) (CMS/HCC) (Primary Dx); Protein malnutrition (CMS/HCC); Weight loss; Cognitive impairment 06/11/2025 11:20 AM EDT Office Visit [facility] [address] [address] Octavia Herrera, MARIA GUADALUPE Hepatic encephalopathy (CMS/HCC) (Primary Dx); 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 06/11/2025 10:30 AM EDT Social Work [facility] [address] [facility] [address] [place] [phone] Lea Reilly LCSW 06/11/2025 Travel 06/10/2025 Results Follow-Up [facility] [address] [place] [address] Alvarez Zimmer MD 06/09/2025 [facility] [employer] [facility] [address], [address] [place] [address] Ar Dominique MD Chronic kidney disease, stage 3b (CMS/HCC) 06/06/2025 11:20 AM EDT - 06/06/2025 11:59 PM EDT Hospital Encounter [facility] [address] [place] [address] Discharge Disposition: Home or Self Care 06/06/2025 7:58 AM EDT - 06/06/2025 11:19 AM EDT Hospital Encounter [facility] [address] [place] [address] Golden Wilhelm, RN Other ascites Discharge Disposition: Home or Self Care 06/06/2025 Travel 06/05/2025 2:00 PM EDT Office Visit [address] [address] Alvarez Zimmer MD Medicare annual wellness visit, initial (Primary Dx); Coronary artery disease of [place] artery of [place] heart with stable angina pectoris (CMS/HCC); Diabetic [...] Hyperbilirubinemia; Protein malnutrition (CMS/HCC) 06/05/2025 Travel 06/01/2025 [facility] [employer] [facility] [address], [address] [place] [address] Ar Dominique MD Chronic kidney disease, stage 3b (CMS/HCC) 06/01/2025 [facility] [address] [place] [address] Octavia Herrera, PA 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) (CMS/HCC) 05/31/2025 12:36 PM EDT - 05/31/2025 8:07 PM EDT Emergency [facility] Emergency [facility] [address] [place] [address] Torrie Turner MD Katirji, Linda Y, MD Altered mental status, unspecified altered mental status type (Primary Dx) Discharge Disposition: Home or Self Care 05/31/2025 Travel 05/30/2025 8:58 AM EDT - 05/30/2025 11:59 PM EDT Hospital Encounter [facility] [address] [place] [address] Shirley Remy RN Other ascites; Type 2 diabetes mellitus with hyperglycemia, with long-term current use of insulin (CMS/HCC); Chronic kidney disease, stage 3b (CMS/HCC) Discharge Disposition: Home or Self Care 05/30/2025 Travel 05/29/2025 Patient Outreach POPULATION [facility] [address], [address] [place] [address] Tamera Isabel LPN AWJulius 05/29/2025 Travel 05/28/2025 Travel 05/23/2025 12:19 PM EDT - 05/23/2025 11:59 PM EDT Hospital Encounter [facility] [address] [place] [address] Discharge Disposition: Home or Self Care 05/23/2025 8:48 AM EDT - 05/23/2025 12:18 PM EDT Hospital Encounter [facility] [address] [place] [address] Kael Mohan, RN Other ascites Discharge Disposition: Home or Self Care 05/23/2025 8:31 AM EDT - 05/23/2025 8:47 AM EDT Hospital Encounter [facility] [address] [place] [address] Kael Mohan, RN Other ascites; End-stage liver disease (CMS/HCC); Type 2 diabetes mellitus with hyperglycemia, with long-term current use of insulin (CMS/HCC) Discharge Disposition: Home or Self Care 05/23/2025 Orders Only [facility] [address] [place] [address] Enmanuel Wetzel MD 05/23/2025 Results Follow-Up [facility] [address] [place] [phone] Wilma Arana RN 05/23/2025 Travel 05/22/2025 Travel 05/21/2025 [facility] [address] [place] [address] Alvarez Zimmer MD 05/21/2025 [facility] [address], [address] [place] [address] Ar Dominique MD Chronic kidney disease, stage 3b (CMS/HCC) 05/18/2025 Travel 05/17/2025 9:20 AM EDT Office Visit [facility] [address] [place] [address] Enmanuel Wetzel MD Type 2 diabetes mellitus with hyperglycemia, with long-term current use of insulin (CMS/[facility]) (Primary Dx); Chronic kidney disease, stage 3b (CMS/HCC); Dyslipidemia from Last 3 Months Immunizations Immunization Administration [...] Problems Maternal Grandfather Alzheimer's disease Maternal Grandmother Mamaw Mayelin Dementia Maternal Grandmother Christine Dick Emphysema Maternal [...] Son 3 Jp Zimmer Alive Son 4 Viralarnoldo Zimmer Alive Social History Tobacco Use Types [...] do you attend chur or sikh services? Never 05/29/2025 Do you [...] more drinks on one occasion? 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) to steady your nerves or to get [...] Mass Index 31.62 2025 9:00 AM EDT Plan of Treatment Upcoming Encounters Date Type Department Care Team (Late st Contact Info) Description 08/20/2025 9:30 AM EDT Clinical Support [facility] [address] [place] [address] 08/20/2025 10:30 AM EDT Social Work [facility] [address] [place] [address] [place] [address] 08/20/2025 11:00 AM EDT Office Visit [facility] [address] [place] [address] Jude Duque MD [address] [place] [phone] 08/22/2025 11:15 AM EDT Appointment [facility] [address] [place] [phone] 08/22/2025 12:15 PM EDT Appointment [facility] [address] [place] [phone] 08/26/2025 1:00 PM EDT Office Visit [facility] [address] [place] [address] Miranda Hobson, LEAN MANUFACTURING ENGINEER [address] [facility] [address] [place] [address] 08/29/2025 10:00 AM EDT Appointment [facility] [address] [place] [phone] 08/29/2025 11:00 AM EDT Appointment [facility] [address] [place] [phone] 09/05/2025 10:00 AM EDT Appointment [facility] [address] [place] [address] 09/05/2025 11:00 AM EDT Appointment [facility] [address] [place] [address] Health Maintenance Due Date Last Done Comments Dental Prophylaxis 1960 Dental X-Ray: Bitewings 1962 Dental X-Ray: Full Mouth 1962 [facility]-Infant/Child/Adol SDOH Screenings 1962 [id number] Vaccine (#1) 1967 Diabetes: Dental Exam 1972 [...] 2023, 10/02/2024, 10/28/2022 [facility]-Obesity Intervention Completed 025, 08/01/2025, 07/25/2025, Additional history exists HPV Vaccines Aged Out [...] Name Priority Date/Time Associated Diagnosis Comments US CHEST Routine 2025 10:08 AM EDT Other ascites US GUIDED ABDOMINAL PARACENTESIS Routine 2025 10:08 AM EDT Alcoholic cirrhosis of liver with ascites (CMS/HCC) TOTAL PROTEIN, PERITONEAL FLUID Routine 2025 9:25 AM EDT BODY FLUID CELL COUNT W/O DIFF Routine 2025 9:25 AM EDT XR CHEST 1 VIEW STAT 08/08/2025 2:54 PM EDT POCT GLUCOSE METER UNSOLICITED RESULTS Routine 08/08/2025 1:42 PM EDT US GUIDED THORACENTESIS Routine 08/08/2025 12:19 PM EDT Other ascites US GUIDED ABDOMINAL PARACENTESIS Routine 08/08/2025 12:19 PM EDT Other ascites BODY FLUID, CYTOSPIN, PATHOLOGIST INTERPRETATION Routine 08/08/2025 11:32 AM EDT GLUCOSE, PERITONEAL FLUID Routine 08/08/2025 11:32 AM EDT TOTAL PROTEIN, PERITONEAL FLUID Routine 08/08/2025 11:32 AM EDT BODY FLUID CELL COUNT W/ MANUAL DIFFERENTIAL Routine 08/08/2025 11:32 AM EDT XR CHEST 1 VIEW Routine 08/01/2025 1:17 PM EDT US GUIDED THORACENTESIS Routine 08/01/2025 11:38 AM EDT Other ascites US GUIDED ABDOMINAL PARACENTESIS Routine 08/01/2025 11:38 AM EDT Other ascites BODY FLUID, CYTOSPIN, PATHOLOGIST INTERPRETATION Routine 08/01/2025 10:44 AM EDT TOTAL PROTEIN, PERITONEAL FLUID Routine 08/01/2025 10:44 AM EDT BODY FLUID CELL COUNT W/ MANUAL DIFFERENTIAL Routine 08/01/2025 10:44 AM EDT POCT GLUCOSE METER UNSOLICITED RESULTS Routine 07/25/2025 [...] 4:47 AM EDT PHOSPHORUS, PLASMA Routine 07/04/2025 4:47 AM EDT MAGNESIUM, PLASMA Routine 07/04/2025 4:4 [...] 3: 52 PM EDT Protein malnutrition (CMS/HCC) DIRECT BILIRUBIN, PLASMA Routine 06/05/2025 3:52 PM EDT [...] AM EDT End-stage liver disease (CMS/HCC) COMPREHENSIVE ORAL EVALUATION - NEW OR ESTABLISHED [...] Recently Relevant to Health Maintenance Results * US Guided Abdominal Paracentesis (2025 10:08 AM EDT) Only the most recent of11 [...] Narrative 08/17/2025 1:13 AM EDT CLINICAL INDICATION: Monika Zimmer is a 64 y.o. 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 Patient presents for paracentesis. TECHNIQUE: Senior Php Developer: ADRI Glasgow Secondary Inspector Bullet Slugs: None. Rad Dose: NA Medications: Continuous physiologic [...] Mike Orr MD - 08/17/2025 CLINICAL INDICATION: Monika Zimmer is a 64 y.o. 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 Patient presents for paracentesis. TECHNIQUE: Senior Php Developer: ADRI Glasgow Secondary Inspector Bullet Slugs: None. Rad Dose: NA Medications: Continuous physiologic [...] 08/17/2025 1:13 AM us Marianna N Cheeks LEAN MANUFACTURING ENGINEER IMG US PROCEDURES Final Resu lt * US Chest (2025 10:08 AM EDT) Only the most recent [...] Narrative 08/17/2025 1:04 AM EDT CLINICAL INDICATION: Monika Zimmer is a 64 y.o. 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 Patient presents for thoracentesis. TECHNIQUE: Senior Php Developer: ADRI Glasgow Procedure: Limited chest ultrasound completed with small to moderate volume right pleural effusion, lung sliding in percutaneous window. Patient asymptomatic, elected to not complete thoracentesis at this time COMPARISON: Chest x-ray 08/08/2025 Ultrasound guided thoracentesis 08/08/2025. FINDINGS: Small right sided pleural effusion COMPLICATION: No. Procedure Note Mike Orr MD - 08/17/2025 CLINICAL INDICATION: Monika Zimmer is a 64 y.o. 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 Patient presents for thoracentesis. TECHNIQUE: Senior Php Developer: ADRI Glasgow Procedure: Limited chest ultrasound completed [...] lt * (ABNORMAL) Body Fluid Cell Count W/O Diff (2025 9:25 AM EDT) Specimen Source, Body Fluid Peritoneal Fluid 2025 2:25 PM EDT [facility] Specimen Type Body Fluid 2025 2:25 PM EDT [facility] Color, Body fluid Yellow LAB HEMATOLOGY METHOD 2025 2:25 PM EDT [facility] Appearance, Body fluid Cloudy(A) LAB HEMATOLOGY METHOD 2025 2:25 PM EDT [facility] Volume, Body fluid 45.0 cc LAB HEMATOLOGY METHOD 2025 2:25 PM EDT [facility] Red Blood Cell Count, Body fluid 4,000 uL LAB HEMATOLOGY METHOD 2025 2:25 PM EDT [facility] Total Nucleated Cell Count, Body fluid 129 uL LAB HEMATOLOGY METHOD 2025 2:25 PM EDT [facility] Fluid Container Specimen received in miscellaneous container LAB HEMATOLOGY METHOD 2025 2:25 PM EDT [facility] Body Fluid Peritoneal fluid / Unknown Non-blood Collection / Unknown 2025 9:25 AM EDT 2025 10:44 AM EDT us Micheal E Pee LEAN MANUFACTURING ENGINEER, DNP LAB BODY FLUIDS AND ST OOLS ORDERABLES Final Result Performing Organization Address [facility] Co de Phone Number [facility] [address] [place] [address] * Total Protein, Peritoneal Fluid (2025 9:25 AM EDT) Only the most recent of11 resultswithin the time period is included. Total Protein, Fluid 0.8 g/dL 2025 11:55 AM EDT [facility] Peritoneal Fluid Peritoneal cavity structure / Unknown Non-blood Collection / Unknown 2025 9:25 AM EDT 2025 10:45 AM EDT Narrative [facility] - 2025 11:55 AM EDT This test was developed and its performance characteristics determined by [facility]. The U.S. Food and Drug Administration has not approved or cleared this test. However, FDA clearance or approval is not currently required for clinical use. The results are not intended to be used as the sole means for clinical diagnosis or patient management decisions. us Micheal E Pee LEAN MANUFACTURING ENGINEER, DNP LAB BODY FLUIDS AND ST OOLS ORDERABLES Final Result Performing Organization Address City/[facility]/ZIP Co de Phone Number [facility] [address] [place] [address] * XR Chest 1 View (08/08/2025 2:54 PM EDT) Only the most recent of13 resultswithin the time period is included. Anatomical [...] on 08/08/2025 3:10 PM us Shaniqua Mccurdy LEAN MANUFACTURING ENGINEER IMG XR PROCEDURES Final Resu lt * (ABNORMAL) POCT glucose meter (08/08/2025 1:42 PM EDT) Only the most recent of63 resultswithin the time period is included. POCT Glucose 294(H) 74 - 99 mg/dL [...] for testing. Comment 08/08/2025 1:44 PM EDT [facility] Inspector Bullet Slugs ID Mariam Thomas 08/08/2025 1:44 PM EDT [facility]ALTH[facility]ARE LAB Device ID [id number] 08/08/2025 1:44 PM EDT [facility] Specimen Type POC Capillary 08/08/2025 1:44 PM EDT [facility] Blood Capillary blood specimen / Unknown 08/08/2025 1:42 PM EDT 08/08/2025 1:44 PM EDT Mariam Thomas BARREL CHARRER HELPER POINT OF CARE T EST DOCKED DEVICE UNSOLICITED RESULTS Final Result Performing Organization Address City/State/[facility] Co de Phone Number [facility] [address] [place] [address] * US Guided Thoracentesis (08/08/2025 12:19 PM EDT) Only the most recent of11 [...] cirrhosis with ascites and hepatic hydrothorax. TECHNIQUE: Senior Php Developer: Shaniqua Mccurdy APRN Secondary Inspector Bullet Slugs: None. Rad Dose: NA Medications: Continuous physiologic [...] decompensated cirrhosis with ascites and hepatichydrothorax. TECHNIQUE: Senior Php Developer: Shaniqua Mccurdy APRN Secondary Inspector Bullet Slugs: None. Rad Dose: NA Medications: Continuous physiologic [...] on 08/08/2025 1:58 PM us Marianna Dixon Gordon LEAN MANUFACTURING ENGINEER IMG US PROCEDURES Final Resu lt * (ABNORMAL) Body Fluid Cell Count With Diff - Ascites (08/08/2025 11:32 AM EDT) Only the most recent of13 resultswithin the time period is included. Color, Body fluid Yellow LAB HEMATOLOGY METHOD 08/08/2025 4:39 PM EDT [facility] Appearance, Body fluid Cloudy(A) LAB HEMATOLOGY METHOD 08/08/2025 4:39 PM EDT [facility] Volume, Body fluid 8.0 cc LAB HEMATOLOGY METHOD 08/08/2025 4:39 PM EDT [facility] Fluid Container Tube 3 LAB HEMATOLOGY METHOD 08/08/2025 4:39 PM EDT [facility] Red Blood Cell Count, Body fluid 4,000 uL LAB HEMATOLOGY METHOD 08/08/2025 4:39 PM EDT [facility] Total Nucleated Cell Count, Body fluid 122 uL LAB HEMATOLOGY METHOD 08/08/2025 4:39 PM EDT [facility] Neutrophils %, Body fluid 2 % LAB HEMATOLOGY METHOD 08/08/2025 4:39 PM EDT [facility] Lymphocytes %, Body fluid 93 % LAB HEMATOLOGY METHOD 08/08/2025 4:39 PM EDT [facility] Monocytes/Macro phages %, Body fluid 5 % LAB HEMATOLOGY METHOD 08/08/2025 4:39 PM EDT [facility] Eosinophils %, Body fluid 0 % LAB HEMATOLOGY METHOD 08/08/2025 4:39 PM EDT [facility] Lining/M[place]othel ial Cells %, Body fluid 0 % LAB HEMATOLOGY METHOD 08/08/2025 4:39 PM EDT [facility] Neutrophils Absolute (PMN), Body fluid 2 uL LAB HEMATOLOGY METHOD 08/08/2025 4:39 PM EDT [facility] Lymphocytes Absolute, Body fluid 113 uL LAB HEMATOLOGY METHOD 08/08/2025 4:39 PM EDT [facility] Monocytes/Macro phages Absolute, Body fluid 6 uL LAB HEMATOLOGY METHOD 08/08/2025 4:39 PM EDT [facility] Eosinophils Absolute, Body fluid 0 uL LAB HEMATOLOGY METHOD 08/08/2025 4:39 PM EDT [facility] Basophils Absolute, Body fluid 0 uL LAB HEMATOLOGY METHOD 08/08/2025 4:39 PM EDT [facility] Lining/Mesothel ial Cells Absolute, Body fluid 0 uL LAB HEMATOLOGY METHOD 08/08/2025 4:39 PM EDT [facility] Basophils %, Body fluid 0 % LAB HEMATOLOGY METHOD 08/08/2025 4:39 PM EDT [facility] Body Fluid Peritoneal fluid / Unknown Non-blood Collection / Unknown 08/08/2025 11:32 AM EDT 08/08/2025 2:47 PM EDT Shaniqua Mccurdy APRN LAB BODY FLUIDS AND STOOLS ORDERABLES NO SPECIMEN TYPE/SOURCE Final Result Performing Organization Address [facility] de Phone Number [facility] [address] [place] [address] * Body fluid, cytospin, pathologist interpretation (08/08/2025 11:32 AM EDT) Only the most recent of13 resultswithin the time period is included. Specimen Type Body Fluid LAB HEMATOLOGY METHOD 08/09/2025 5:55 PM EDT [facility] Specimen Source, Body Fluid Peritoneal Fluid LAB HEMATOLOGY METHOD 08/09/2025 5:55 PM EDT [facility] Clinical Diagnosis, Body Fluid Decompensated cirrhosis MASH, Ascites LAB HEMATOLOGY METHOD 08/09/2025 5:55 PM EDT [facility] Interpretation , Body Fluid No evidence of malignancy Chronic inflammatory cells Lymphocytosis Light blood A resident was involved in the service. I attest I examined the relevant preparations for the specimens and confirmed the diagnosis or interpretation. 08/09/2025 5:55 PM EDT [facility] Pathologist Signature, Body Fluid 08/09/2025 5:55 PM EDT [facility] Comment:Reviewed by: Kadie dobbs MD LAB CP ASR DISCLAIMER Yes 08/09/2025 5:55 PM EDT [facility] Body Fluid Peritoneal fluid / Unknown Non-blood Collection / Unknown 08/08/2025 11:32 AM EDT 08/08/2025 2:47 PM EDT us Shaniqua Mccurdy LEAN MANUFACTURING ENGINEER LAB BODY FLUIDS AND STOOLS O RDERABLES Final Result Performing Organization Address City/[facility]/ZIP Co de Phone Number [facility] [address] [place] [address] * Glucose - Ascites (08/08/2025 11:32 AM EDT) Only the most recent of5 resultswithin the time period is included. Glucose, Fluid 317 mg/dL 08/08/2025 3:30 PM EDT [facility] Peritoneal Fluid Peritoneal cavity structure / Unknown Non-blood Collection / Unknown 08/08/2025 11:32 AM EDT 08/08/2025 2:47 PM EDT Narrative [facility] - 08/08/2025 3:30 PM EDT Peritoneal/Ascites [...] 3) Glucose < 50 mg/dL. us Shaniqua Nicole Mccurdy LEAN MANUFACTURING ENGINEER LAB BODY FLUIDS AND STOOLS O RDERABLES Final Result [facility] [address] [place] [address] * US Abdomen Focused Region Other (07/11/2025 [...] 07/11/2025 4:21 PM EDT CLINICAL INDICATION: Monika Zimmer is a 64 y.o. 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 FINDINGS: Small volume RLQ ascites. No ascites present in LLQ, LUQ, RUQ. Paracentesis not completed COMPLICATION: No. Procedure Note Dina Rose MD - 07/11/2025 CLINICAL INDICATION: Monika Zimmer is a 64 y.o. 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 FINDINGS: Small volume RLQ ascites. No ascites present in LLQ, LUQ, RUQ.Paracentesis not completed COMPLICATION: No. IMPRESSION: Technically successful abdominal ultrasound No paracentesis completed CRITICAL RESULT: No. COMMUNICATION: Per this written report. Preliminary report signed by SLOANGE Toure on 07/11/2025 1:09 PM By electronically signing this report, I, the attending physician, attestthat I was not present for the procedure(s) but agree with the finaledited report. Drafted by SOLANGE Toure on 07/11/2025 1:07 PM Final report signed by Dina Rose MD on 07/11/2025 4:21 PM us Marianna Gordon LEAN MANUFACTURING ENGINEER IMG US PROCEDURES Final Resu lt * (ABNORMAL) Protime-INR (07/09/2025 5:52 AM EDT) Only the most recent of12 resultswithin the time period is included. Prothrombin Time 23.5(H) 12.0 - 14.3 sec 07/09/2025 6:07 AM EDT [facility] INR 2.0(H) 0.9 - 1.1 07/09/2025 6:07 AM EDT [facility] Blood Venous blood specimen / Unknown [...] INR 2.5 to 3.5 Prevention of recurrent CO INR 2.5 to 3.5 us Fabiana Cunningham MD LAB BLOOD ORDERABLES Final Resu lt [facility] [address] [place] [address] * (ABNORMAL) CBC and Differential (07/09/2025 3:22 AM EDT) Only the most recent of17 resultswithin the time period is included. WBC Count 3.24(L) 3.70 - 10.30 10*3/uL LAB HEMATOLOGY METHOD 07/09/2025 3:42 AM EDT [facility] RBC Count 2.67(L) 3.90 - 5.20 10*6/uL LAB HEMATOLOGY METHOD 07/09/2025 3:42 AM EDT [facility] HGB 8.4(L) 11.2 - 15.7 g/dL LAB HEMATOLOGY METHOD 07/09/2025 3:42 AM EDT [facility] HCT 25.0(L) 34.0 - 45.0 % LAB HEMATOLOGY METHOD 07/09/2025 3:42 AM EDT [facility] Platelet Count 51(L) 155 - 369 10*3/uL LAB HEMATOLOGY METHOD 07/09/2025 3:42 AM EDT [facility] MCV 94 79 - 98 fL LAB HEMATOLOGY METHOD 07/09/2025 3:42 AM EDT [facility] MCH 31.5 26.0 - 32.0 pg LAB HEMATOLOGY METHOD 07/09/2025 3:42 AM EDT [facility] MCHC 33.6 30.7 - 35.5 g/dL LAB HEMATOLOGY METHOD 07/09/2025 3:42 AM EDT [facility] RDW 16.2(H) 11.5 - 14.5 % LAB HEMATOLOGY METHOD 07/09/2025 3:42 AM EDT [facility] MPV 11.8 8.8 - 12.5 fL LAB HEMATOLOGY METHOD 07/09/2025 3:42 AM EDT [facility] [facility] nRBC 0.0 <=0.0 per 100 WBCs LAB HEMATOLOGY METHOD 07/09/2025 3:42 AM EDT [facility] Differential Type Automated LAB HEMATOLOGY METHOD 07/09/2025 3:42 AM EDT [facility] Neutrophils % 57 % LAB HEMATOLOGY METHOD 07/09/2025 3:42 AM EDT [facility] Lymphocytes % 23 % LAB HEMATOLOGY METHOD 07/09/2025 3:42 AM EDT [facility] Monocytes % 16 % LAB HEMATOLOGY METHOD 07/09/2025 3:42 AM EDT [facility] Eosinophils % 3 % LAB HEMATOLOGY METHOD 07/09/2025 3:42 AM EDT [facility] Basophils % 1 % LAB HEMATOLOGY METHOD 07/09/2025 3:42 AM EDT [facility] Immature Granulocytes % 0 % LAB HEMATOLOGY METHOD 07/09/2025 3:42 AM EDT [facility] Neutrophils Absolute 1.84 1.60 - 6.10 10*3/uL LAB HEMATOLOGY METHOD 07/09/2025 3:42 AM EDT [facility] Lymphocytes Absolute 0.73(L) 1.20 - 3.90 10*3/uL LAB HEMATOLOGY METHOD 07/09/2025 3:42 AM EDT [facility] Monocytes Absolute 0.52 0.30 - 0.90 10*3/uL LAB HEMATOLOGY METHOD 07/09/2025 3:42 AM EDT [facility] Eosinophils Absolute 0.11 0.00 - 0.50 10*3/uL LAB HEMATOLOGY METHOD 07/09/2025 3:42 AM EDT [facility] Basophils Absolute 0.03 0.00 - 0.10 10*3/uL LAB HEMATOLOGY METHOD 07/09/2025 3:42 AM EDT [facility] Immature Granulocytes Absolute 0.01 0.00 - 0.06 10*3/uL LAB HEMATOLOGY METHOD 07/09/2025 3:42 AM EDT [facility] Blood Venous blood specimen / Unknown Venipuncture / Unknown 07/09/2025 3:22 AM EDT 07/09/2025 3:38 AM EDT Narrative [facility] - 07/09/2025 3:42 AM EDT Therapeutic decision making should be based on absolute values, rather than percentages. us Chilo Loyola MD LAB BLOOD ORDERABLES Final Result [facility] [address] [place] [address] * Phosphorus, Plasma (07/09/2025 3:22 AM EDT) Only the most recent of16 resultswithin the time period is included. Phosphorus, Plasma 3.6 2.5 - 4.5 mg/dL 07/09/2025 4:00 AM EDT [facility] Blood Venous blood specimen / Unknown Venipuncture / Unknown 07/09/2025 3:22 AM EDT 07/09/2025 3:39 AM EDT us Chilo Loyola MD LAB BLOOD ORDERABLES Final Result Performing Organization Address [facility] de Phone Number [facility] [address] [place] [address] * Magnesium, Plasma (07/09/2025 3:22 AM EDT) Only the most recent of17 resultswithin the time period is included. Magnesium, Plasma 1.9 1.9 - 2.4 mg/dL 07/09/2025 4:00 AM EDT [facility] Blood Venous blood specimen / Unknown Venipuncture / Unknown 07/09/2025 3:22 AM EDT 07/09/2025 3:39 AM EDT us Chilo Loyola MD LAB BLOOD ORDERABLES Final Result Performing Organization Address [facility] de Phone Number [facility] [address] [place] [address] * (ABNORMAL) Comprehensive metabolic panel (07/09/2025 3:22 AM EDT) Only the most recent of18 resultswithin the time period is included. Glucose, Plasma 105(H) 74 - 99 mg/dL 07/09/2025 4:00 AM EDT [facility] BUN, Plasma 22 8 - 23 mg/dL 07/09/2025 4:00 AM EDT [facility] Creatinine, Plasma 1.22(H) 0.60 - 1.10 mg/dL 07/09/2025 4:00 AM EDT [facility] BUN/Creatinine Ratio 18 07/09/2025 4:00 AM EDT [facility] Sodium, Plasma 136 136 - 145 mmol/L 07/09/2025 4:00 AM EDT [facility] Potassium, Plasma 4.1 3.6 - 4.9 mmol/L 07/09/2025 4:00 AM EDT [facility] Chloride, Plasma 108(H) 97 - 107 mmol/L 07/09/2025 4:00 AM EDT [facility] CO2, Plasma 18(L) 22 - 29 mmol/L 07/09/2025 4:00 AM EDT [facility] Anion Gap 10 6 - 16 mmol/L 07/09/2025 4:00 AM EDT [facility] Total Calcium, Plasma 8.5(L) 8.9 - 10.2 mg/dL 07/09/2025 4:00 AM EDT [facility] Total Protein 6.2(L) 6.3 - 7.9 g/dL 07/09/2025 4:00 AM EDT [facility] Albumin, Plasma 3.5 3.5 - 5.2 g/dL 07/09/2025 4:00 AM EDT [facility] AST, Plasma 39(H) 10 - 35 U/L 07/09/2025 4:00 AM EDT [facility] ALT, Plasma 19 10 - 35 U/L 07/09/2025 4:00 AM EDT [facility] Alkaline Phosphatase, Plasma 170(H) 46 - 142 U/L 07/09/2025 4:00 AM EDT [facility] Total Bilirubin, Plasma 2.7(H) 0.2 - 1.1 mg/dL 07/09/2025 4:00 AM EDT [facility] eGFRcr 50.3 mL/min/1.7 3m*2 07/09/2025 4:00 AM EDT [facility] Comment:Reported eGFRcr in m L/min/1.73m2 is based the CKD-EPI 2020 equation that does not use a race coefficient. Blood Venous blood specimen / Unknown Venipuncture / Unknown 07/09/2025 3:22 AM EDT 07/09/2025 3:39 AM EDT us Chilo Loyola MD LAB BLOOD ORDERABLES Final Result [facility] [address] [place] [address] * (ABNORMAL) Ammonia, Plasma (07/08/2025 4:21 AM EDT) Only the most recent of4 resultswithin the time period is included. Ammonia 146(H) 11 - 51 umol/L 07/08/2025 4:56 AM EDT [facility] Blood Venous blood specimen / Unknown Venipuncture / Unknown 07/08/2025 4:21 AM EDT 07/08/2025 4:27 AM EDT us Kayla Reed MD LAB BLOOD ORDERABLES Tari l Result Performing Organization Address City/[facility]/ZIP Co de Phone Number [facility] [address] [place] [address] * Total Protein, Pleural Fluid - Pleural Right (07/04/2025 10:48 AM EDT) Only the most recent of2 resultswithin the time period is included. Total Protein, Fluid 2.1 g/dL 07/04/2025 4:42 PM EDT [facility] Pleural Fluid Structure of right pleural cavity / Unknown Non-blood Collection / Unknown 07/04/2025 10:48 AM EDT 07/04/2025 12:11 PM EDT Narrative [facility] - 07/04/2025 4:42 PM EDT This test was developed and its performance characteristics determined by [facility]. The U.S. Food and Drug Administration has not approved or cleared this test. However, FDA clearance or approval is not currently required for clinical use. The results are not intended to be used as the sole means for clinical diagnosis or patient management decisions. us Fabiana Cunningham MD LAB BODY FLUIDS AND STOOLS VINCENT CATES Final Result Performing Organization Address City/[facility]/ZIP Co de Phone Number [facility] [address] [place] [address] * Lactate Dehydrogenase, Pleural Fluid - Right (07/04/2025 10:48 AM EDT) Only the most recent of2 resultswithin the time period is included. LDH, Fluid 69 U/L 07/04/2025 4:42 PM EDT [facility] Pleural Fluid Structure of right pleural cavity / Unknown Non-blood Collection / Unknown 07/04/2025 10:48 AM EDT 07/04/2025 12:11 PM EDT Narrative [facility] - 07/04/2025 4:42 PM [...] the following criteria are present: (1) pleural lxhit-gy-kpxfu protein ratio of >0.5, (2) pleural twllz-nc-zwbbp LDH ratio of >0.6, or (3) a pleural fluid LDH activity that is >2/3 the upper limit of a normal serum LDH activity. Light's criteria may misclassify ~25% of transudates as exudates in heart failure. These can be identified by calculating a ewduq-ic-dmzuvnp albumin gradient (>1.2 g/dL) and/or a rhwqs-po-gypjc protein gradient (>3.1 g/dL). Fabiana Cunningham MD LAB BODY FLUIDS AND STOOLS QIANLoyd LOAN Final Result [facility] [address] [place] [address] * Body Fluid Culture and Gram Stain - Pleural Right (07/04/2025 10:48 AM EDT) Only the most recent of4 resultswithin the time period is included. Culture No growth at day 4 2024 7:42 AM EDT [facility] Gram Stain Result Few Polymorphonuclear leukocytes 07/07/2025 7:42 AM EDT [facility] Gram Stain Result No organisms seen 07/07/2025 7:42 AM EDT [facility] Pleural Fluid Specimen from pleura obtained by thoracentesis / Unknown Non-blood Collection / Unknown 07/04/2025 10:48 AM EDT 07/04/2025 12:41 PM EDT Fabiana Cunningham MD LAB MICROBIOLOGY - GENERAL ORDLoyd CATES Final Result Performing Organization Address City/[facility]/ZIP Co de Phone Number [facility] [address] [place] [address] * LDH - Ascites (07/04/2025 10:08 AM EDT) Only the most recent of2 resultswithin the time period is included. LDH, Fluid 63 U/L 07/04/2025 3:52 PM EDT [facility] Ascites Peritoneal cavity structure / Unknown 07/04/2025 10:08 AM EDT 07/04/2025 12:10 PM EDT Narrative [facility] - 07/04/2025 3:52 PM [...] VINCENT CATES Final Result Performing Organization Address [facility] Co de Phone Number [facility] [address] [place] [address] * XR Abdomen 1 View (07/03/2025 7:02 [...] Urine 821 mg/dL 07/02/2025 4:26 PM EDT [facility] Urine Urine specimen obtained by clean catch procedure / Unknown Non-blood Collection / Unknown 07/02/2025 12:42 PM EDT 07/02/2025 1:01 PM EDT Fabiana Cunningham MD LAB URINE ORDERABLES Final Resu lt [facility] [address] [place] [address] * Sodium, urine, random (07/02/2025 12:42 PM EDT) Sodium, Urine <20 mmol/L 07/02/2025 1:41 PM EDT [facility] Urine Urine specimen obtained by clean catch procedure / Unknown Non-blood Collection / Unknown 07/02/2025 12:42 PM EDT 07/02/2025 1:01 PM EDT us Fabiana Cunningham MD LAB URINE ORDERABLES Final Resu lt Performing Organization Address [facility] Co de Phone Number [facility] [address] [place] [address] * Osmolality, urine (07/02/2025 12:42 PM EDT) Osmolality, Urine 467 50 - 1,200 mOsm/kg 07/02/2025 4:32 PM EDT [facility] Urine Urine specimen obtained by clean catch procedure / Unknown Non-blood Collection / Unknown 07/02/2025 12:42 PM EDT 07/02/2025 1:01 PM EDT us Fabiana Cunningham MD LAB URINE ORDERABLES Final Resu lt Performing Organization Address [facility] Co de Phone Number [facility] [address] [place] [address] * Creatinine, urine, random (07/02/2025 12:42 PM EDT) Creatinine, Urine 146 mg/dL 07/02/2025 1:41 PM EDT [facility] Urine Urine specimen obtained by clean catch procedure / Unknown Non-blood Collection / Unknown 07/02/2025 12:42 PM EDT 07/02/2025 1:01 PM EDT us Fabiana Cunningham MD LAB URINE ORDERABLES Final Resu lt Performing Organization Address [facility] Co de Phone Number [facility] [address] [place] [address] * (ABNORMAL) Peripheral Blood Smear (06/30/2025 12:37 AM EDT) WBC Count 2.74(L) 3.70 - 10.30 10*3/uL LAB HEMATOLOGY METHOD 06/30/2025 1:28 AM EDT [facility] RBC Count 2.74(L) 3.90 - 5.20 10*6/uL LAB HEMATOLOGY METHOD 06/30/2025 1:28 AM EDT [facility] HGB 8.4(L) 11.2 - 15.7 g/dL LAB HEMATOLOGY METHOD 06/30/2025 1:28 AM EDT [facility] HCT 24.8(L) 34.0 - 45.0 % LAB HEMATOLOGY METHOD 06/30/2025 1:28 AM EDT [facility] Platelet Count 40(L) 155 - 369 10*3/uL LAB HEMATOLOGY METHOD 06/30/2025 1:28 AM EDT [facility] MCV 91 79 - 98 fL LAB HEMATOLOGY METHOD 06/30/2025 1:28 AM EDT [facility] MCH 30.7 26.0 - 32.0 pg LAB HEMATOLOGY METHOD 06/30/2025 1:28 AM EDT [facility] MCHC 33.9 30.7 - 35.5 g/dL LAB HEMATOLOGY METHOD 06/30/2025 1:28 AM EDT [facility] RDW 15.3(H) 11.5 - 14.5 % LAB HEMATOLOGY METHOD 06/30/2025 1:28 AM EDT [facility] MPV 10.3 8.8 - 12.5 fL LAB HEMATOLOGY METHOD 06/30/2025 1:28 AM EDT [facility] nRBC 0.0 <=0.0 per 100 WBCs LAB HEMATOLOGY METHOD 06/30/2025 1:28 AM EDT [facility] Differential Type Automated LAB HEMATOLOGY METHOD 06/30/2025 1:28 AM EDT [facility] Neutrophils % 54 % LAB HEMATOLOGY METHOD 06/30/2025 1:28 AM EDT [facility] Lymphocytes % 27 % LAB HEMATOLOGY METHOD 06/30/2025 1:28 AM EDT [facility] Monocytes % 16 % LAB HEMATOLOGY METHOD 06/30/2025 1:28 AM EDT [facility] Eosinophils % 3 % LAB HEMATOLOGY METHOD 06/30/2025 1:28 AM EDT [facility] Basophils % 0 % LAB HEMATOLOGY METHOD 06/30/2025 1:28 AM EDT [facility] Immature Granulocytes % 0 % LAB HEMATOLOGY METHOD 06/30/2025 1:28 AM EDT [facility] Neutrophils Absolute 1.45(L) 1.60 - 6.10 10*3/uL LAB HEMATOLOGY METHOD 06/30/2025 1:28 AM EDT [facility] Lymphocytes Absolute 0.73(L) 1.20 - 3.90 10*3/uL LAB HEMATOLOGY METHOD 06/30/2025 1:28 AM EDT [facility] Monocytes Absolute 0.45 0.30 - 0.90 10*3/uL LAB HEMATOLOGY METHOD 06/30/2025 1:28 AM EDT [facility] Eosinophils Absolute 0.09 0.00 - 0.50 10*3/uL LAB HEMATOLOGY METHOD 06/30/2025 1:28 AM EDT [facility] Basophils Absolute 0.01 0.00 - 0.10 10*3/uL LAB HEMATOLOGY METHOD 06/30/2025 1:28 AM EDT [facility] Immature Granulocytes Absolute 0.01 0.00 - 0.06 10*3/uL LAB HEMATOLOGY METHOD 06/30/2025 1:28 AM EDT [facility] Blood Venous blood specimen / Unknown Venipuncture / Unknown 06/30/2025 12:37 AM EDT 06/30/2025 12:40 AM EDT Narrative [facility] - 06/30/2025 1:28 AM EDT Therapeutic decision making should be based on absolute values, rather than percentages. Fabiana Cunningham MD LAB PATHOLOGY ORDERABLES Final Result Performing Organization Address City/State/[facility] de Phone Number [facility] [address] [place] [address] * Peripheral blood smear, pathologist interpretation (06/30/2025 12:37 AM EDT) Clinical Diagnosis, Peripheral Smear Pancytopenia LAB HEMATOLOGY METHOD 07/01/2025 12:12 PM EDT [facility] Interpretation , Peripheral Smear Pancytopenia, not morphologically distinct 07/01/2025 12:12 PM EDT [facility] Pathologist Signature, Peripheral Smear 07/01/2025 12:12 PM EDT [facility] Comment:Reviewed by: Stacy King MD LAB CP ASR DISCLAIMER No 07/01/2025 12:12 PM EDT [facility] Blood Venous blood specimen / Unknown Venipuncture / Unknown 06/30/2025 12:37 AM EDT 06/30/2025 12:40 AM EDT Fabiana Cunningham MD LAB PATHOLOGY ORDERABLES Final Result Performing Organization Address City/State/[facility] de Phone Number [facility] [address] [place] [address] * (ABNORMAL) Prealbumin (06/28/2025 3:50 AM EDT) Only the most recent of2 resultswithin the time period is included. Prealbumin, Plasma 5.0(L) 20.0 - 41.0 mg/dL 06/28/2025 1:42 PM EDT [facility] Blood Venous blood specimen / Unknown Venipuncture / Unknown 06/28/2025 3:50 AM EDT 06/28/2025 4:27 AM EDT Chilo Loyola MD LAB BLOOD ORDERABLES Final Result Performing Organization Address [facility] de Phone Number [facility] [address] [place] [address] * (ABNORMAL) APTT (06/27/2025 2:37 PM EDT) [facility] aPTT 42(H) 25 - 35 sec 06/27/2025 3:10 PM EDT [facility] Blood Venous blood specimen / Unknown Venipuncture / Unknown 06/27/2025 2:37 PM EDT 06/27/2025 2:44 PM EDT Chilo Loyola MD LAB BLOOD ORDERABLES Final Result Performing Organization Address City/[facility] de Phone Number [facility] [address] [place] [address] * (ABNORMAL) Basic metabolic panel (06/27/2025 2:37 PM EDT) Only the most recent of2 resultswithin the time period is included. Glucose, Plasma 90 74 - 99 mg/dL 06/27/2025 3:10 PM EDT [facility] BUN, Plasma 29(H) 8 - 23 mg/dL 06/27/2025 3:10 PM EDT [facility] Creatinine, Plasma 1.83(H) 0.60 - 1.10 mg/dL 06/27/2025 3:10 PM EDT [facility] BUN/Creatinine Ratio 16 06/27/2025 3:10 PM EDT [facility] Sodium, Plasma 139 136 - 145 mmol/L 06/27/2025 3:10 PM EDT [facility] Potassium, Plasma 3.7 3.6 - 4.9 mmol/L 06/27/2025 3:10 PM EDT [facility] Chloride, Plasma 108(H) 97 - 107 mmol/L 06/27/2025 3:10 PM EDT [facility] CO2, Plasma 19(L) 22 - 29 mmol/L 06/27/2025 3:10 PM EDT [facility] Anion Gap 12 6 - 16 mmol/L 06/27/2025 3:10 PM EDT [facility] Total Calcium, Plasma 8.6(L) 8.9 - 10.2 mg/dL 06/27/2025 3:10 PM EDT [facility] eGFRcr 30.9 mL/min/1.7 3m*2 06/27/2025 3:10 PM EDT [facility] Comment:Reported eGFRcr in m L/min/1.73m2 is based the CKD-EPI 2020 equation that does not use a race coefficient. Blood Venous blood specimen / Unknown Venipuncture / Unknown 06/27/2025 2:37 PM EDT 06/27/2025 2:44 PM EDT Chilo Loyola MD LAB BLOOD ORDERABLES Final Result [facility] [address] [place] [address] * Albumin - Ascites (06/27/2025 9:16 AM EDT) Only the most recent of3 resultswithin the time period is included. Albumin, Peritoneal Fluid 0.5 g/dL 06/27/2025 2:46 PM EDT [facility] Peritoneal Fluid Peritoneal cavity structure / Unknown Non-blood Collection / Unknown 06/27/2025 9:16 AM EDT 06/27/2025 11:21 AM EDT Narrative [facility] - 06/27/2025 2:46 PM EDT REPORTING RESULTS Reference Values: No established reference interval. Results should be interpreted in comparison to the concentration in blood and in conjunction with the clinical context. This test was developed and its performance characteristics determined by [facility]. The U.S. Food and Drug Administration has not approved or cleared this test; however, FDA clearance or approval is not currently required for clinical use. The results are not intended to be used as the sole means for clinical diagnosis or patient management decisions. Chilo Loyola MD LAB BODY FLUIDS AND STOOLS ORDERABLES Final Result Performing Organization Address City/[facility] Co de Phone Number [facility] [address] [place] [address] * Morphology (06/27/2025 4:03 AM EDT) Only the most recent of2 resultswithin the time period is included. Pathologist [facility] RBC Morphology Slide Reviewed LAB HEMATOLOGY METHOD 06/27/2025 5:26 AM EDT [facility] Target Cells Present LAB HEMATOLOGY METHOD 06/27/2025 5:26 AM EDT [facility] Blood Venous blood specimen / Unknown Venipuncture / Unknown 06/27/2025 4:03 AM EDT 06/27/2025 4:40 AM EDT Chilo Loyola MD LAB BLOOD ORDERABLES Final Result Performing Organization Address [facility] de Phone Number [facility] [address] [place] [address] * (ABNORMAL) Cystatin C (06/27/2025 4:03 AM EDT) Only the most recent of2 resultswithin the time period is included. Pathologist [facility] Cystatin C 2.97(H) 0.61 - 0.95 mg/L 06/27/2025 11:21 AM EDT [facility] Blood Venous blood specimen / Unknown Venipuncture / Unknown 06/27/2025 4:03 AM EDT 06/27/2025 4:40 AM EDT Result [facility] Chilo oLyola MD LAB BLOOD ORDERABLES Final Result Performing Organization Address City/[facility] Co de Phone Number [facility] [address] [place] [address] * Protein, Random, Urine with Creatinine (06/26/2025 10:40 AM EDT) Protein, Urine 56 mg/dL 06/26/2025 11:35 AM EDT [facility] Creatinine, Urine 181 mg/dL 06/26/2025 11:35 AM EDT [facility] Protein/Creati nine Ratio 0.3 mg/mg Creat 06/26/2025 11:35 AM EDT [facility] Urine Urine specimen obtained by clean catch procedure / Unknown Non-blood Collection / Unknown 06/26/2025 10:40 AM EDT 06/26/2025 11:03 AM EDT Chilo Loyola MD LAB URINE ORDERABLES Final Result Performing Organization Address City/[facility]/ZIP Co de Phone Number [facility] [address] [place] [address] * (ABNORMAL) Osmolality (06/26/2025 3:47 AM EDT) Osmolality, Serum 307(H) 280 - 301 mOsm/Kg 06/26/2025 9:36 AM EDT [facility] Blood Venous blood specimen / Unknown Venipuncture / Unknown 06/26/2025 3:47 AM EDT 06/26/2025 4:09 AM EDT us Chilo Loyola MD LAB BLOOD ORDERABLES Final Result [facility] [address] [place] [address] * (ABNORMAL) Manual Differential (06/25/2025 3:00 PM EDT) Blasts % 0 % LAB HEMATOLOGY METHOD 06/25/2025 4:38 PM EDT [facility] Promyelocytes % 0 % LAB HEMATOLOGY METHOD 06/25/2025 4:38 PM EDT [facility] Myelocytes % 0 % LAB HEMATOLOGY METHOD 06/25/2025 4:38 PM EDT [facility] Metamyelocytes % 0 % LAB HEMATOLOGY METHOD 06/25/2025 4:38 PM EDT [facility] Neutrophils % 69 % LAB HEMATOLOGY METHOD 06/25/2025 4:38 PM EDT [facility] Lymphocytes % 15 % LAB HEMATOLOGY METHOD 06/25/2025 4:38 PM EDT [facility] Reactive Lymphocytes % 0 % LAB HEMATOLOGY METHOD 06/25/2025 4:38 PM EDT [facility] Monocytes % 11 % LAB HEMATOLOGY METHOD 06/25/2025 4:38 PM EDT [facility] Eosinophils % 1 % LAB HEMATOLOGY METHOD 06/25/2025 4:38 PM EDT [facility] Basophils % 4 % LAB HEMATOLOGY METHOD 06/25/2025 4:38 PM EDT [facility] Blasts Absolute LAB HEMATOLOGY METHOD 06/25/2025 4:38 PM EDT [facility] Promyelocytes Absolute LAB HEMATOLOGY METHOD 06/25/2025 4:38 PM EDT [facility] Myelocytes Absolute LAB HEMATOLOGY METHOD 06/25/2025 4:38 PM EDT [facility] Metamyelocytes Absolute LAB HEMATOLOGY METHOD 06/25/2025 4:38 PM EDT [facility] Neutrophils Absolute 1.61 1.60 - 6.10 10*3/uL LAB HEMATOLOGY METHOD 06/25/2025 4:38 PM EDT [facility] Lymphocytes Absolute 0.35(L) 1.20 - 3.90 10*3/uL LAB HEMATOLOGY METHOD 06/25/2025 4:38 PM EDT [facility] Reactive Lymphocytes Absolute LAB HEMATOLOGY METHOD 06/25/2025 4:38 PM EDT [facility] Monocytes Absolute 0.26(L) 0.30 - 0.90 10*3/uL LAB HEMATOLOGY METHOD 06/25/2025 4:38 PM EDT [facility] Eosinophils Absolute 0.02 0.00 - 0.50 10*3/uL LAB HEMATOLOGY METHOD 06/25/2025 4:38 PM EDT [facility] Basophils Absolute 0.09 0.00 - 0.10 10*3/uL LAB HEMATOLOGY METHOD 06/25/2025 4:38 PM EDT [facility] Blood Venous blood specimen / Unknown Venipuncture / Unknown 06/25/2025 3:00 PM EDT 06/25/2025 3:10 PM EDT us Raymundo Childers MD LAB BLOOD ORDERABLES Final Resul t [facility] [address] [place] [address] * ECG Adult (06/25/2025 2:48 PM EDT) Only the most recent of2 resultswithin the time period is included. EKG DIAGNOSIS CLASS Abnormal MUSE ECG Ventricular Rate 61 BPM MUSE ECG QRSD Interval 86 ms MUSE ECG QT Interval 448 ms MUSE ECG QTC Interval 450 ms MUSE ECG R Natalia -25 degrees MUSE ECG T Wave Natalia 25 degrees MUSE ECG Diagnosis Poor data quality, interpretation may be adversely affected MUSE ECG Diagnosis Likely Normal sinus rhythm MUSE ECG Diagnosis Low voltage QRS MUSE ECG Diagnosis Abnormal ECG MUSE ECG Diagnosis Recommend repeat ECG MUSE ECG Diagnosis Confirmed by Alex Sotelo ([id number]) on 06/26/2025 9:55:48 AM MUSE ECG 06/25/2025 2:48 PM EDT 06/26/2025 9:55 AM EDT Raymundo Childers MD ECG ORDERABLES Final Result MUSE ECG * CT MSK OUTSIDE IMAGES (06/23/2025 6:38 PM EDT) Anatomical Region Laterality Modality Computed Tomogra phy 06/23/2025 6:38 PM EDT us Kandice Maldonado APRN IMG CT PROCEDURES Final Res ult * XR OUTSIDE IMAGES (06/23/2025 5:56 PM EDT) Anatomical Region Laterality Modality Radiographic [place] ging 06/23/2025 5:56 PM EDT us Kandice Maldonado APRN IMG XR PROCEDURES Final Res ult * US OUTSIDE IMAGES (06/23/2025 5:29 PM EDT) Anatomical Region Laterality Modality Ultrasound 06/23/2025 5:29 PM EDT us Kandice Maldonado [employer]AN MANUFACTURING ENGINEER IMG US PROCEDURES Final Res ult * Bone Specific Alkaline Phosphatase (06/11/2025 9:24 AM EDT) Bone Specific Alkaline Phosphatase 31.6 ug/L 06/11/2025 10:45 AM EDT [facility] Comment: BSAP (Ostase) Reference Values, Female, age 18 years and up: Premenopausal: 4.5 to 16.9 ug/L Postmenopausal: 7.0 to 22.4 ug/L Blood Venous blood specimen / Unknown Venipuncture / Unknown 06/11/2025 9:24 AM EDT 06/11/2025 9:55 AM EDT us Ar Dominique MD LAB REF LAB BLOOD AND FLUID OR D Final Result [facility] [address] [place] [address] * Pain Management, Quantitative Urine Drug Testing (06/11/2025 9:24 AM EDT) Alpha [place] Alprazolam <20 <20 ng/mL 06/13 1:50 PM EDT [facility] Alpha [place] Midazolam <20 <20 ng/mL 2024 1:50 PM EDT [facility] Alpha [place] Triazolam <20 <20 ng/mL 2024 1:50 PM EDT [facility] Alprazolam <10 <10 ng/mL 06/13/2025 1:50 PM EDT [facility] Aminoclonazepam <20 <20 ng/mL 5 1:50 PM EDT [facility] Amphetamine <50 <50 ng/mL 06/13/2025 1:50 PM EDT [facility] Benzoylecgonine <50 <50 ng/mL 1:50 PM EDT [facility] Buprenorphine <10 <10 ng/mL 06/13/2025 1:50 PM EDT [facility] Buprenorphine Glucuronide <50 <50 ng/mL 06/13/2025 1:50 PM EDT [facility] Butalbital <50 <50 ng/mL 06/13/2025 1:50 PM EDT [facility] 9 Carboxy THC <10 <10 ng/mL 06/13/2025 1:50 PM EDT [facility] 9 Carboxy THC Glucuronide <25 <25 ng/mL 06/13/2025 1:50 PM EDT [facility] Clonazepam <10 <10 ng/mL 06/13/2025 1:50 PM EDT [facility] Codeine <50 <50 ng/mL 06/13/2025 1:50 PM EDT [facility] Codeine Glucuronide <50 <50 ng/mL 06/13 1:50 PM EDT [facility] Cyclobenzaprine <50 <50 ng/mL 1:50 PM EDT [facility] Desmethyl Tramadol <50 <50 ng/mL 2024 1:50 PM EDT [facility] Diazepam <10 <10 ng/mL 06/13/2025 1:50 PM EDT [facility] EDDP - Methadone Metabolite <50 <50 ng/mL 06/13/2025 1:50 PM EDT [facility] Fentanyl <1 <1 ng/mL 06/13/2025 1:50 PM EDT [facility] Hydrocodone <50 <50 ng/mL 06/13/2025 1:50 PM EDT [facility] Hydromorphone <50 <50 ng/mL 06/13/2025 1:50 PM EDT [facility] Hydromorphone Glucuronide <50 <50 ng/mL 06/13/2025 1:50 PM EDT [facility] Lorazepam <20 <20 ng/mL 06/13/2025 1:50 PM EDT [facility] Lorazepam Glucuronide <50 <50 ng/mL 06/13/2025 1:50 PM EDT [facility] MDA <50 <50 ng/mL 06/13/2025 1:50 PM EDT [facility] MDMA <50 <50 ng/mL 06/13/2025 1:50 PM EDT [facility] Meperidine <50 <50 ng/mL 06/13/2025 1:50 PM EDT [facility] Methadone <50 <50 ng/mL 06/13/2025 1:50 PM EDT [facility] Methamphetamine <50 <50 ng/mL 1:50 PM EDT [facility] Methylphenidate <50 <50 ng/mL 1:50 PM EDT [facility] 6 Monoacetyl morphine <10 <10 ng/mL 06/13/2025 1:50 PM EDT [facility] Morphine <50 <50 ng/mL 06/13/2025 1:50 PM EDT [facility] Morphine Glucuronide <50 <50 ng/mL 05/22 1:50 PM EDT [facility] Naloxone <50 <50 ng/mL 06/13/2025 1:50 PM EDT [facility] Naloxone Glucuronide <50 <50 ng/mL 05/22 1:50 PM EDT [facility] Norbuprenorphine <10 <10 ng/mL 06/13/20 1:50 PM EDT [facility] Norbuprenorphine Glucuronide <50 <50 ng/mL 06/13/2025 1:50 PM EDT [facility] Nordiazepam <20 <20 ng/mL 06/13/2025 1:50 PM EDT [facility] Norfentanyl <2 <2 ng/mL 06/13/2025 1:50 PM EDT [facility] Normeperidine <50 <50 ng/mL 06/13/2025 1:50 PM EDT [facility] PCP Quant, Ur <50 <50 ng/mL 06/13/2025 1:50 PM EDT [facility] Phenobarbital <50 <50 ng/mL 06/13/2025 1:50 PM EDT [facility] Oxazepam <20 <20 ng/mL 06/13/2025 1:50 PM EDT [facility] Oxazepam Glucuronide <50 <50 ng/mL 05/22 1:50 PM EDT [facility] Oxycodone <50 <50 ng/mL 06/13/2025 1:50 PM EDT [facility] Oxymorphone <50 <50 ng/mL 06/13/2025 1:50 PM EDT [facility] Oxymorphone Glucuronide <50 <50 ng/mL 06/13/2025 1:50 PM EDT [facility] Secobarbital <50 <50 ng/mL 06/13/2025 1:50 PM EDT [facility] Tramadol <50 <50 ng/mL 06/13/2025 1:50 PM EDT [facility] Temazepam <20 <20 ng/mL 06/13/2025 1:50 PM EDT [facility] Temazepam Glucuronide <50 <50 ng/mL 06/13/2025 1:50 PM EDT [facility] Urine Urine specimen obtained by clean catch procedure / Unknown Non-blood Collection / Unknown 06/11/2025 9:24 AM EDT 06/11/2025 9:57 AM EDT Narrative [facility] - 06/13/2025 1:50 PM EDT [...] laboratory. Test performed by LC-MS/MS at the [facility] Special Chemistry Laboratory. This test was developed and its performance characteristics determined by [facility]. It has not been cleared or approved by the FDA. The laboratory is regulated under CLIA as qualified to perform high-complexity testing. This test is used for clinical purposes. us Gerson Arora MD LAB URINE ORDERABLES Final Resul t [facility] [address] [place] [address] * C-Telopeptide (06/11/2025 9:24 AM EDT) C Telopeptide Beta Cross Linked Serum Result 1083 pg/mL 06/13/2025 1:13 AM EDT [facility] ([facility]) Blood Venous blood specimen / Unknown Venipuncture / Unknown 06/11/2025 9:24 AM EDT 06/11/2025 9:54 AM EDT Narrative [facility]) - 06/13/2025 1:13 AM EDT Premenopausal Females: 136-689 pg/mL Postmenopausal Females: 177-1015 pg/mL REFERENCE INTERVAL: C-Telopeptide, [id number], Serum Access complete set of age- and/or gender-specific reference intervals for this test in the [facility] ([employer]). Performed By: [facility] [address] [place] [address] Casing Flusher: Tank Orona MD, PhD CLIA Number: [id number] us Ar Dominique MD LAB BLOOD ORDERABLES Final Res ult Performing Organization Address City/[facility]/ZIP Co de Phone Number [facility]) [address] [place] [address] * Nicotine Cotinine Metabolite (06/11/2025 9:24 AM EDT) NICOTINE <5 <5 ng/mL 06/13/2025 6:2 3 PM EDT [facility] Cotinine <5 <5 ng/mL 06/13/2025 6:2 3 PM EDT [facility] Blood Venous blood specimen / Unknown Venipuncture / Unknown 06/11/2025 9:24 AM EDT 06/11/2025 9:55 AM EDT Narrative [facility] - 06/13/2025 6:23 PM EDT Testing performed by LC-MS/MS at the [facility] Special Chemistry/Toxicology Laboratory. This test was developed and its performance characteristics determined by [facility]. This assay has not been cleared by the FDA. The laboratory is regulated under CLIA as qualified to perform high-complexity testing. This test is used for clinical purposes. us Gerson Arora MD LAB BLOOD ORDERABLES Final Resul t [facility] [address] [place] [address] * Osteocalcin by ECIA (06/11/2025 9:24 AM EDT) OSTEOCALCIN BY ECIA 28 8 - 36 ng/mL 06/13/2025 1:13 AM EDT [facility]) Blood Venous blood specimen / Unknown Venipuncture / Unknown 06/11/2025 9:24 AM EDT 06/11/2025 10:00 AM EDT Narrative [facility]) - 06/13/2025 1:13 AM EDT INTERPRETIVE INFORMATION: Osteocalcin by ECIA In patients with renal failure, the osteocalcin result may be directly elevated, due to impaired clearance, and/or indirectly elevated due to renal osteodystrophy. Access complete set of age- and/or gender-specific reference intervals for this test in the [facility] Test Directory ([employer]). Performed By: [facility] [address] [place] [address] Casing Flusher: Tank Orona MD, PhD CLIA Number: [id number] us Ar Dominique MD LAB BLOOD ORDERABLES Final Res ult [facility]) [address] [place] [address] * Alcohol Urine (06/11/2025 9:24 AM EDT) Alcohol Urine Negative Negative 06/11/2025 2:20 PM EDT [facility] Urine Urine specimen obtained by clean catch procedure / Unknown Non-blood Collection / Unknown 06/11/2025 9:24 AM EDT 06/11/2025 9:57 AM EDT Narrative [facility] - 06/11/2025 2:20 PM EDT The correlation between urine and serum ethanol concentration is highly variable. Test performed by Gas Chromatography at the [facility] Special Chemistry Laboratory. This test was developed and its performance characteristics determined by [facility]. It has not been cleared or approved by the FDA.The laboratory is regulated under CLIA as qualified to perform high-complexity testing. This test is used for clinical purposes only. us Gerson Arora MD LAB URINE ORDERABLES Final Resul t [facility] [address] [place] [address] * (ABNORMAL) Comprehensive Urine Drug Screening, Qualitative Assay, >= 27 Drug Classes (59:24 AM EDT) Acetaminophen Negative Negative 06/11/2025 4:37 PM EDT [facility] Alprazolam Negative Negative 06/11/2025 4:37 PM EDT [facility] Amantadine Negative Negative 06/11/2025 4:37 PM EDT [facility] Amitriptyline Negative Negative 06/11/2025 4:37 PM EDT [facility] Amphetamine Negative Negative 06/11/2025 4:37 PM EDT [facility] Atenolol Negative Negative 06/11/2025 4:37 PM EDT [facility] Benzoylecgonine Negative Negative 4:37 PM EDT [facility] Bisoprolol Negative Negative 06/11/2025 4:37 PM EDT [facility] Bupropion Negative Negative 06/11/2025 4:37 PM EDT [facility] Butalbital Negative Negative 06/11/2025 4:37 PM EDT [facility] Carbamazepine Negative Negative 06/11/2025 4:37 PM EDT [facility] Carisoprodol Negative Negative 06/11/2025 4:37 PM EDT [facility] Chlorpheniramine Negative Negative 06/11/20 4:37 PM EDT [facility] Citalopram Negative Negative 06/11/2025 4:37 PM EDT [facility] Clindamycin Negative Negative 06/11/2025 4:37 PM EDT [facility] Clonidine Negative Negative 06/11/2025 4:37 PM EDT [facility] Clopidogrel / Ticlopidine Negative Negative 06/11/2025 4:37 PM EDT [facility] Cocaethylene Negative Negative 06/11/2025 4:37 PM EDT [facility] Cocaine Negative Negative 06/11/2025 4:37 PM EDT [facility] Codeine Negative Negative 06/11/2025 4:37 PM EDT [facility] Cyclobenzaprine Negative Negative 4:37 PM EDT [facility] Desvenlafaxine Negative Negative 06/11/2025 4:37 PM EDT [facility] Dextromethorphan Negative Negative 06/11/20 4:37 PM EDT [facility] Diazepam Negative Negative 06/11/2025 4:37 PM EDT [facility] Diltiazem Negative Negative 06/11/2025 4:37 PM EDT [facility] Diphenhydramine Negative Negative 4:37 PM EDT [facility] Doxepine Negative Negative 06/11/2025 4:37 PM EDT [facility] Doxylamine Negative Negative 06/11/2025 4:37 PM EDT [facility] EDDP-Methadone metabolite Negative Negative 06/11/2025 4:37 PM EDT [facility] Fentanyl Negative Negative 06/11/2025 4:37 PM EDT [facility] Fluconazole Negative Negative 06/11/2025 4:37 PM EDT [facility] Fluoxetine Negative Negative 06/11/2025 4:37 PM EDT [facility] Guaifenesin Negative Negative 06/11/2025 4:37 PM EDT [facility] Haloperidol Negative Negative 06/11/2025 4:37 PM EDT [facility] Heroin/6-SANA Negative Negative 06/11/2025 4:37 PM EDT [facility] Hydrocodone Negative Negative 06/11/2025 4:37 PM EDT [facility] Hydroxyzine / Cetirizine metabolite Negative Negative 06/11/2025 4:37 PM EDT [facility] Ibuprofen Negative Negative 06/11/2025 4:37 PM EDT [facility] Imipramine Negative Negative 06/11/2025 4:37 PM EDT [facility] Ketamine Negative Negative 06/11/2025 4:37 PM EDT [facility] Labetolol Negative Negative 06/11/2025 4:37 PM EDT [facility] Lamotrigine Negative Negative 06/11/2025 4:37 PM EDT [facility] Levetiracetam Negative Negative 06/11/2025 4:37 PM EDT [facility] Lidocaine Positive(A) Negative 06/11/2025 4:37 PM EDT [facility] MDA Negative Negative 06/11/2025 4:37 PM EDT [facility] MDMA Negative Negative 06/11/2025 4:37 PM EDT [facility] Memantine Negative Negative 06/11/2025 4:37 PM EDT [facility] Meperidine Negative Negative 06/11/2025 4:37 PM EDT [facility] Meprobamate Negative Negative 06/11/2025 4:37 PM EDT [facility] Metaxalone Negative Negative 06/11/2025 4:37 PM EDT [facility] Methamphetamine Negative Negative 4:37 PM EDT [facility] Methocarbamol Negative Negative 06/11/2025 4:37 PM EDT [facility] Methylecgonine Negative Negative 06/11/2025 4:37 PM EDT [facility] Metoclopramide Negative Negative 06/11/2025 4:37 PM EDT [facility] Metoprolol Negative Negative 06/11/2025 4:37 PM EDT [facility] Metronidazole Negative Negative 06/11/2025 4:37 PM EDT [facility] Midazolam Negative Negative 06/11/2025 4:37 PM EDT [facility] Midazolam Metabolite Negative Negative 06/11/2025 4:37 PM EDT [facility] Mirtazapine Negative Negative 06/11/2025 4:37 PM EDT [facility] Misc Test Result Negative Negative 06/11/20 4:37 PM EDT [facility] Naproxen Negative Negative 06/11/2025 4:37 PM EDT [facility] Nefazodone Negative Negative 06/11/2025 4:37 PM EDT [facility] Norfentanyl Negative Negative 06/11/2025 4:37 PM EDT [facility] Nortriptyline Negative Negative 06/11/2025 4:37 PM EDT [facility] Ordanstron Negative Negative 06/11/2025 4:37 PM EDT [facility] Oxcarbazepine Negative Negative 06/11/2025 4:37 PM EDT [facility] Oxycodone Negative Negative 06/11/2025 4:37 PM EDT [facility] Paroxethine Negative Negative 06/11/2025 4:37 PM EDT [facility] Phenobarbital Negative Negative 06/11/2025 4:37 PM EDT [facility] Phentermine Negative Negative 06/11/2025 4:37 PM EDT [facility] Phenytoin Negative Negative 06/11/2025 4:37 PM EDT [facility] Primidone Negative Negative 06/11/2025 4:37 PM EDT [facility] Promethazine Negative Negative 06/11/2025 4:37 PM EDT [facility] Propofol Negative Negative 06/11/2025 4:37 PM EDT [facility] Propranolol Negative Negative 06/11/2025 4:37 PM EDT [facility] Quetiapine Negative Negative 06/11/2025 4:37 PM EDT [facility] Quinine Negative Negative 06/11/2025 4:37 PM EDT [facility] Rantidine Negative Negative 06/11/2025 4:37 PM EDT [facility] Sertraline Negative Negative 06/11/2025 4:37 PM EDT [facility] Spironolactone Negative Negative 06/11/2025 4:37 PM EDT [facility] Tizanidine Negative Negative 06/11/2025 4:37 PM EDT [facility] Topiramate Negative Negative 06/11/2025 4:37 PM EDT [facility] Tramadol Negative Negative 06/11/2025 4:37 PM EDT [facility] Trazadone/ Trazadone metabolite Negative Negative 06/11/2025 4:37 PM EDT [facility] Trimethoprim Negative Negative 06/11/2025 4:37 PM EDT [facility] Valproic Acid Negative Negative 06/11/2025 4:37 PM EDT [facility] Venlafaxine Negative Negative 06/11/2025 4:37 PM EDT [facility] Verapamil Negative Negative 06/11/2025 4:37 PM EDT [facility] Zolpidem Negative Negative 06/11/2025 4:37 PM EDT [facility] Xylazine Negative Negative 06/11/2025 4:37 PM EDT [facility] Urine Urine specimen obtained by clean catch procedure / Unknown Non-blood Collection / Unknown 06/11/2025 9:24 AM EDT 06/11/2025 9:56 AM EDT us Gerson Arora MD LAB URINE ORDERABLES Final Resul t [facility] [address] [place] [address] * (ABNORMAL) CBC w/o differential (06/11/2025 9:24 AM EDT) Only the most recent of2 resultswithin the time period is included. WBC Count 4.49 3.70 - 10.30 10*3/uL LAB HEMATOLOGY METHOD 06/11/2025 10:12 AM EDT [facility] RBC Count 3.17(L) 3.90 - 5.20 10*6/uL LAB HEMATOLOGY METHOD 06/11/2025 10:12 AM EDT [facility] HGB 10.0(L) 11.2 - 15.7 g/dL LAB HEMATOLOGY METHOD 06/11/2025 10:12 AM EDT [facility] HCT 31.0(L) 34.0 - 45.0 % LAB HEMATOLOGY METHOD 06/11/2025 10:12 AM EDT [facility] Platelet Count 68(L) 155 - 369 10*3/uL LAB HEMATOLOGY METHOD 06/11/2025 10:12 AM EDT [facility] MCV 98 79 - 98 fL LAB HEMATOLOGY METHOD 06/11/2025 10:12 AM EDT [facility] MCH 31.5 26.0 - 32.0 pg LAB HEMATOLOGY METHOD 06/11/2025 10:12 AM EDT [facility] MCHC 32.3 30.7 - 35.5 g/dL LAB HEMATOLOGY METHOD 06/11/2025 10:12 AM EDT [facility] RDW 17.3(H) 11.5 - 14.5 % LAB HEMATOLOGY METHOD 06/11/2025 10:12 AM EDT [facility] MPV 10.1 8.8 - 12.5 fL LAB HEMATOLOGY METHOD 06/11/2025 10:12 AM EDT [facility] nRBC 0.0 <=0.0 per 100 WBCs LAB HEMATOLOGY METHOD 06/11/2025 10:12 AM EDT [facility] Blood Venous blood specimen / Unknown Venipuncture / Unknown 06/11/2025 9:24 AM EDT 06/11/2025 9:56 AM EDT us Gerson Arora MD LAB BLOOD ORDERABLES Final Resul t Performing Organization Address City/[facility]/ZIP Co de Phone Number [facility] [address] [place] [address] * (ABNORMAL) Iron, Plasma (06/05/2025 3:52 PM EDT) Iron, Plasma 165(H) 30 - 160 ug/dL 06/05/2025 6:41 PM EDT [facility] Blood Venous blood specimen / Unknown Venipuncture / Unknown 06/05/2025 3:52 PM EDT 06/05/2025 3:52 PM EDT us Alvarez Zimmer MD LAB BLOOD ORDERABLES Final Res ult [facility] [address] [place] [address] * (ABNORMAL) Ferritin, Serum (06/05/2025 3:52 PM EDT) Ferritin, Serum 280(H) 13 - 150 ng/mL 06/05/2025 6:53 PM EDT [facility] Blood Venous blood specimen / Unknown Venipuncture / Unknown 06/05/2025 3:52 PM EDT 06/05/2025 3:52 PM EDT us Alvarez Zimmer MD LAB BLOOD ORDERABLES Final Res ult Performing Organization Address [facility] [place] [address] * (ABNORMAL) Conjugated Bilirubin, Plasma (06/05/2025 3:52 PM EDT) Direct Bilirubin, Plasma 1.5(H) <=0.3 mg/dL 06/05/2025 6:41 PM EDT [facility] Blood Venous blood specimen / Unknown Venipuncture / Unknown 06/05/2025 3:52 PM EDT 06/05/2025 3:52 PM EDT us Alvarez Zimmer MD LAB BLOOD ORDERABLES Final Res ult Performing Organization Address [facility] [place] [address] * Urine Subramanian Panel (05/31/2025 6:43 PM EDT) Only the most recent of2 resultswithin the time period is included. Extra Reflex urine culture not indicated 05/31/2025 9:01 PM EDT [facility] Urine Urine specimen obtained by clean catch procedure / Unknown Non-blood Collection / Unknown 05/31/2025 6:43 PM EDT 05/31/2025 7:14 PM EDT Irina Campos MD LAB URINE ORDERABLES Final Re sult Performing Organization Address City/[facility] Co de Phone Number [facility] [address] [place] [address] * Urinalysis Microscopic Examination (05/31/2025 6:43 PM EDT) Only the most recent of2 resultswithin the time period is included. Urine Urine specimen obtained by clean catch procedure / Unknown Non-blood Collection / Unknown 05/31/2025 6:43 PM EDT 05/31/2025 6:46 PM EDT us Irina Campos MD LAB URINE ORDERABLES Final Re sult [facility] [address] [place] [id number] * (ABNORMAL) Urinalysis with reflex microscopic (Culture NOT Included) (05/31/2025 6:43 PM EDT) Only the most recent of2 resultswithin the time period is included. Color, Urine Dark Yellow LAB URINALYSIS - AUTOMATED METHOD 05/31/2025 7:27 PM EDT [facility] Clarity, Urine Clear LAB URINALYSIS - AUTOMATED METHOD 05/31/2025 7:27 PM EDT [facility] Spec [place], Urine 1.029 1.005 - 1.030 LAB URINALYSIS - AUTOMATED METHOD 05/31/2025 7:27 PM EDT [facility] pH, Urine <=5.0(L) 5.0 - 8.0 LAB URINALYSIS - AUTOMATED METHOD 05/31/2025 7:27 PM EDT [facility] Protein, Urine Trace(A) Negative mg/dL LAB URINALYSIS - AUTOMATED METHOD 05/31/2025 7:27 PM EDT [facility] Glucose, Urine Negative Negative mg/dL LAB URINALYSIS - AUTOMATED METHOD 05/31/2025 7:27 PM EDT [facility] Ketones, Urine Trace(A) Negative mg/dL LAB URINALYSIS - AUTOMATED METHOD 05/31/2025 7:27 PM EDT [facility] Blood, Urine Small(A) Negative LAB URINALYSIS - AUTOMATED METHOD 05/31/2025 7:27 PM EDT [facility] Bilirubin, Urine Small(A) Negative LAB URINALYSIS - AUTOMATED METHOD 05/31/2025 7:27 PM EDT [facility] Urobilinogen, Urine 1.0 0.2 to 1.0 mg/dL LAB URINALYSIS - AUTOMATED METHOD 05/31/2025 7:27 PM EDT [facility] Leukocytes, Urine Trace(A) Negative LAB URINALYSIS - AUTOMATED METHOD 05/31/2025 7:27 PM EDT [facility] Nitrite, Urine Negative Negative LAB URINALYSIS - AUTOMATED METHOD 05/31/2025 7:27 PM EDT [facility] RBC, Urine 4 - 10(A) 0 to 3 /HPF LAB URINALYSIS - AUTOMATED METHOD 05/31/2025 7:27 PM EDT [facility] Comment:This result was prev iously suppressed from the chart. WBC, Urine 0 - 5 0 to 5 /HPF LAB URINALYSIS - AUTOMATED METHOD 05/31/2025 7:27 PM EDT [facility] Comment:This result was prev iously suppressed from the chart. Squamous Epithelial Cells 3 - 5 0 to 5 /HPF LAB URINALYSIS - AUTOMATED METHOD 05/31/2025 7:27 PM EDT [facility] Comment:This result was prev iously suppressed from the chart. Hyaline Casts 3 - 5 0 to 5 /LPF LAB URINALYSIS - AUTOMATED METHOD 05/31/2025 7:27 PM EDT [facility] Comment:This result was prev iously suppressed from the chart. Bacteria, Urine Negative Negative LAB URINALYSIS - AUTOMATED METHOD 05/31/2025 7:27 PM EDT [facility] Comment:This result was prev iously suppressed from the chart. Urine Urine specimen obtained by clean catch procedure / Unknown Non-blood Collection / Unknown 05/31/2025 6:43 PM EDT 05/31/2025 6:46 PM EDT us Irina Campos MD LAB URINE ORDERABLES Final Re sult Performing Organization Address City/[facility]/ZIP Co de Phone Number [facility] [address] [place] [address] * Lipase (05/31/2025 4:01 PM EDT) Lipase, Plasma 62 19 - 63 U/L 05/31/2025 4:26 PM EDT [facility] Blood Venous blood specimen / Unknown Venipuncture / Unknown 05/31/2025 4:01 PM EDT 05/31/2025 4:06 PM EDT us Torrie Turner MD LAB BLOOD ORDERABLES Final Resu lt Performing Organization Address City/[facility]/ZIP Co de Phone Number [facility] [address] [place] [address] * (ABNORMAL) Blood gas panel, venous (05/31/2025 4:01 PM EDT) pH, Venous 7.41 7.32 - 7.43 LAB HEMATOLOGY METHOD 05/31/2025 4:07 PM EDT [facility] pCO2, Venous 35(L) 37 - 52 mmHg LAB HEMATOLOGY METHOD 05/31/2025 4:07 PM EDT [facility] pO2, Venous 28 25 - 40 mmHg LAB HEMATOLOGY METHOD 05/31/2025 4:07 PM EDT [facility] SO2, Measured, Venous 45(L) 65 - 80 % LAB HEMATOLOGY METHOD 05/31/2025 4:07 PM EDT [facility] Base Excess, Venous -2.0 -2.0 - 3.0 mmol/L LAB HEMATOLOGY METHOD 05/31/2025 4:07 PM EDT [facility] Bicarbonate, Calculated, Venous 22 22 - 26 mmol/L LAB HEMATOLOGY METHOD 05/31/2025 4:07 PM EDT [facility] Hematocrit, Whole Blood 27.5(L) 34.0 - 45.0 % LAB HEMATOLOGY METHOD 05/31/2025 4:07 PM EDT [facility] Sodium, Whole Blood 142 136 - 145 mmol/L LAB HEMATOLOGY METHOD 05/31/2025 4:07 PM EDT [facility] Potassium, Whole Blood 4.2 3.6 - 4.9 mmol/L LAB HEMATOLOGY METHOD 05/31/2025 4:07 PM EDT [facility] Chloride, Whole Blood 110(H) 97 - 107 mmol/L LAB HEMATOLOGY METHOD 05/31/2025 4:07 PM EDT [facility] Glucose, Whole Blood 183(H) 74 - 99 mg/dL LAB HEMATOLOGY METHOD 05/31/2025 4:07 PM EDT [facility] Lactate, Venous, Whole Blood 1.8 0.5 - 2.2 mmol/L LAB HEMATOLOGY METHOD 05/31/2025 4:07 PM EDT [facility] Ionized Calcium, Whole Blood 4.4(L) 4.6 - 5.1 mg/dL LAB HEMATOLOGY METHOD 05/31/2025 4:07 PM EDT [facility] Blood Venous blood specimen / Unknown Venipuncture / Unknown 05/31/2025 4:01 PM EDT 05/31/2025 4:06 PM EDT us Torrie Turner MD LAB BLOOD ORDERABLES Final Resu lt Performing Organization Address [facility] Co de Phone Number [facility] [address] [place] [address] * (ABNORMAL) Insulin, random (05/30/2025 9:59 AM EDT) Insulin 32.7(H) 3.0 - 16.0 uU/mL 05/30/2025 12:00 PM EDT [facility] Blood Venous blood specimen / Unknown Venipuncture / Unknown 05/30/2025 9:59 AM EDT 05/30/2025 10:16 AM EDT us Enmanuel Wetzel MD LAB BLOOD ORDERABLES Final Resu lt Performing Organization Address [facility] Co de Phone Number [facility] [address] [place] [address] * (ABNORMAL) Hemoglobin A1c (05/23/2025 9:27 AM EDT) Hemoglobin A1c 7.3(H) <5.7 % 05/23/2025 11:03 AM EDT [facility] Blood Venous blood specimen / Unknown Venipuncture / Unknown 05/23/2025 9:27 AM EDT 05/23/2025 9:45 AM EDT Narrative [facility] - 05/23/2025 11:03 AM EDT HA1C Interpretive Data: Diagnosis of Diabetes: Diabetic > or = 6.5% Pre-diabetic 5.7 to 6.4% Non-diabetic < or = 5.6% Glycemic Targets for Type I and Type II Diabetics: Non- Adults <7.0% Adults <6.0% Children and Adolescents <7.5% Source: [place] [employer]. Standards of medical care in diabetes,2017. Diabetes Care.2017:40 (suppl 1):S1-S135. us Enmanuel Wetzel MD LAB BLOOD ORDERABLES Final Resu lt [facility] [address] [place] [address] * Dexa Bone Density (11/07/2024 9:09 AM [...] forearm, right forearm was performed using a [employer] Horizon A Dual-energy X-ray Absorptiometry (DXA) scanner [...] left forearm, right forearm wasperformed using a [employer] Horizon A Dual-energy X-ray Absorptiometry (DXA)scanner (software [...] Antibody/Antigen Screen (10/22/2024 11:44 AM EST) Pathologist [facility] HIV 1 & 2 Antibody/Antigen Screen Non Reactive Non Reactive 10/22/2024 1:15 PM EST [facility] Comment:Screening for HIV 1 & 2 antibodies, and P24 antigen is NONREACTIVE. No confirmatory testing is required. Blood Venous blood specimen / Unknown Venipuncture / Unknown 10/22/2024 11:44 AM EST 10/22/2024 12:30 PM EST Yeni Lebron APRN, DNP LAB BLOOD ORDERABLES Final Result [facility] [address] [place] [address] * Hepatitis C Antibody (10/22/2024 11:44 AM EST) Pathologist [facility] Hepatitis C Antibody Negative Negative 10/22/2024 1:00 PM EST [facility] Blood Venous blood specimen / Unknown Venipuncture / Unknown 10/22/2024 11:44 AM EST 10/22/2024 12:17 PM EST Yeni Lebron APRN, DNP LAB BLOOD ORDERABLES Final Result [facility] [address] [place] [address] * Colonoscopy External Result (01/14/2023) Anatomical Region Laterality Modality Endoscopy Narrative 01/14/2023 Ordered by an unspecified provider. External Provider GI PROCEDURE ORDERABLES Final Result * Cytology (04/12/2003 12:00 AM EDT) 04/12/2003 04/16/2003 Narrative [facility] - 04/26/2003 7:51 AM EDT [facility] MR #: [id number] [facility] [address] [place] [address] 1960 (Age: 42) FW Collect Date: 04/12/2003 00:00 Receipt Date: 04/16/2003 00:00 Page 1 DEPARTMENT OF PATHOLOGY AND LABORATORY MEDICINE CYTOPATHOLOGY REPORT Email: [email or web address] [email or web address] ATTENDING MD/Practitioner: Rosaline Cooper MD Service: [facility] Location: OUTS Reported: 04/26/2003 07:51 Collected: 04/12/2003 [...] results is suggested (please call Microbiology at [phone] for results). CLINICAL INFORMATION: Menstrual History: Cyclic Date of Last Menstrual Period: 11/23 Contraceptive History: control pills Other Clinical Conditions: Per computer, patient has a history of previous abnormal pap SPECIMEN DESCRIPTION: A: THIN PREP (CERVICAL/VAGINAL) THIN PREP PROCESS CELLULAR ENHANCEMENT ICD: 795.00 ABNORMAL GLANDULAR PAPANICOLAOU SMEAR OF CERVIX F: A; THIN SCRN [id number], THIN SCRN [id number] <CR>, [place]IN DX [address] SNOMED CODES: A; [id number] [id number] In cases where a pathologist has signed [...] file Group ID:Not on file Type:Medicaid Address: [place] [id number] [place] [id number] [place] Advance Directives Documents on File Type Date Recorded Patient End Polisher Expl anation Advance Directives and Livin g [...] Relationship Healthcare Agent Relationshi p Communication Irvin Zimmer Son Health Care Agent Lj Bernal Sister First Alternate Health Care Agent Karime Singletary Mother Second Alternate Health Care Agent Care Teams Cardiovascular Tech Relationship Specialty Start Date End Date Alvarez Zimmer MD [address] [place] [address] PCP - General Family Medicine 12/07/24 Lea Fernando [address] [place] [address] Systems Security Consultant Endocrinology 08/29/24 Rachel Ray APRN [address] [place] [address] Nurse Practitioner Gastroenterology 09/24/24 Tamera Isabel, MG VALUE-BASED TRANSFORMATION PROGRAM Licensed Practical Nurse 05/29/25
--- OUTSIDE RECORDS SUMMARY | 2025-08-17 13:42 | XMS_ITS | Encounter Summary ---
Author Organization [employer] ([place], [place], [place], [place]) Address [address] [place] [address] Care Team Providers Care Manager Linux Name Role Phone Taina Lyles HOUSING GRANT ANALYST Primary Care Provider Encounter Details Date Type Department Care Team (Late st Contact Info) Description 07/02/2021 Transcribed Document [facility] Family Medicine [address] [place] [address] ProviderWilliam MD [address], [place] [phone] Social History Tobacco Use Types Packs/Day Years [...] Reyes MD - 07/02/2021 10:50 AM CDT [place] [id number] MONIKA ZIMMERYE :1960 Visit Time:07/01/2021 Your Visit [...] from ER. Where: [address] [place] [phone] (1) Follow Up with CORINA ABAD [...] range between ( 1.0 and 7.0 ) [place] #: 0.66 K/uL -- Normal range between ( 0.24 and 0.82 ) [place] #: 0.49 K/uL -- Normal range between ( 0.04 and 0.54 ) [place] %: 8.2 % -- Normal range between [...] safe for you. General instructions ??? Take xjpv-xku-euaywzz and prescription medicines only as told by [...] provider. Document Revised: 05/10/2019 Document Reviewed: 05/10/2019 [employer] Patient Education ?? 2020 [employer]. Aspirin and Your Heart Aspirin is a [...] The two forms of aspirin are: ? Soo-ejgadpa-bgwtqs.This type of aspirin does not have a coating and is absorbed quickly. This type of aspirin also comes in a chewable form. ? Enteric-coated. This type of aspirin has a coating that releases the medicine very slowly. Enteric-coated aspirin might cause less stomach upset than uif-ipiuofd-yhobla aspirin. This type of aspirin should not [...] provider. Document Revised: 09/07/2018 Document Reviewed: 09/07/2018 [employer] Patient Education ?? 2020 [employer]. Acute Pain, Adult Acute pain is a [...] these instructions at home: Medicines ??? Take very-vqz-rlsbong and prescription medicines only as told by [...] is severe. ? Do not take other jeaa-cbj-ivojhvi pain medicines in addition to prescription pain [...] and fresh fruits and vegetables. ? Take rbji-sph-obarpuc or prescription medicines. ? Limit foods that [...] you are no longer ill. ??? Take fyzb-dqv-qdchwdd and prescription medicines only as told by [...] provider. Document Revised: 03/24/2020 Document Reviewed: 03/24/2020 [employer] Patient Education ?? 2020 [employer]. Coronary Angiogram A coronary angiogram is an [...] including vitamins, herbs, eye drops, creams, and qtrd-fxr-fofasyu medicines. ??? Any problems you or family [...] do not normally take it. ??? Taking owbq-tie-nozwxph medicines, vitamins, herbs, and supplements. General instructions [...] provider. Document Revised: 05/29/2020 Document Reviewed: 05/29/2020 [employer] Patient Education ?? 2020 [employer] Nonspecific Chest Pain, Pediatric Chest pain [...] instructions at home: General instructions ??? Give swam-vau-scpqxdw and prescription medicines only as told by [...] and is usually not dangerous. ??? Give onyu-cto-linywde and prescription medicines only as told by [...] provider. Document Revised: 06/08/2019 Document Reviewed: 06/08/2019 [employer] Patient Education ?? 2020 [employer] Nonspecific Chest Pain Chest pain can [...] these instructions at home: Medicines ??? Take twpy-iki-lmkhfuq and prescription medicines only as told by [...] Eating a heart-healthy diet. A diet and vocational services specialist (dietitian) can help you to learn [...] provider. Document Revised: 05/10/2019 Document Reviewed: 05/10/2019 [employer] Patient Education ?? 2020 [employer] Emergency Awareness and Preventative Care STROKE [...] Assistance with quitting is available by contacting 8-654-MYEGNOW. This is a free resource providing counseling, [...] was given the opportunity to ask questions. Patient/Parker Name: Patient/Parker Signature: Relationship to Patient: Clinician/Hospital Parker Signature: Please Provide a Telephone Number Where You Can Be Reached: Is it Permissible To Leave a Message? Date: Electronically signed by Luigi, [facility] Conversion Call Worker Person Cerner at 03/07/2023 9:48 AM CDT documented in this encounter Plan of Treatment Not on file documented as of this encounter Visit Diagnoses Not on filedocumented in this encounter Care Teams Manager Linux Relationship Specialty Start Date End Date Taina Lyles, HOUSING GRANT ANALYST [address] [place] [address] PCP - General Nurse Practitioner 06/15/23 documented as of this encounter
--- OUTSIDE RECORDS SUMMARY | 2025-08-17 13:42 | XMS_ITS | Encounter Summary ---
Author Organization [employer] ([place], [place], [place], [place]) Address [address] [place] [address] Care Team Providers Care Attendant Honor Bar Name Role Phone Taina Lyles APRN Primary Care Provider Reason for Visit * Reason Comments New Med Request Encounter Details Date Type Department Care Team (Late st Contact Info) Description 12/10/2024 [facility] Primary Care - [address] [place] [address] Anali Benavidez, NET FRONT END DEVELOPER [address] [address] Social History Tobacco Use Types [...] on filedocumented in this encounter Care Teams Attendant Honor Bar Relationship Specialty Start Date End Date Taina Lyles, NET FRONT END DEVELOPER [address] [place] [address] PCP - General Nurse Practitioner 06/15/23 documented as of this encounter
--- OUTSIDE RECORDS SUMMARY | 2025-08-17 13:42 | XMS_ITS | Encounter Summary ---
Author Organization [employer] ([place], [place], [place], [place]) Address [address] [place] [address] Care Team Providers Care Waterproof Material Folder Name Role Phone Taina Lyles COIL INSPECTOR Primary Care Provider [phone] Encounter Details Date Type Department Care Team (Late st Contact Info) Description 07/02/2021 Transcribed Document [facility] Family Medicine [facility] [place] [address] ProviderWilliam MD [address] [place], [place] [address] Social History Tobacco Use Types Packs/Day Years [...] list: All Problems Anxiety / SNOMED CT 8819781800 / Confirmed Arthritis / SNOMED CT 7340932 / Confirmed ADD (attention deficit disorder) / SNOMED CT 0510880416 / Confirmed right carpal tunnel / SNOMED CT 42881676 / Confirmed Chronic depression / SNOMED CT 830828296 / Confirmed Diabetes / SNOMED CT 985818288 / Confirmed GERD (gastroesophageal reflux disease) / SNOMED CT 651605875 / Confirmed Stress incontinence / SNOMED CT 822565225 / Confirmed History of recurrent UTIs / SNOMED CT 541777089 / Confirmed H/O syncope / SNOMED CT 4397286473 / Confirmed Hyperlipidemia / SNOMED CT 04121096 / Confirmed bilateral knee pain / SNOMED CT 81765982 / Confirmed Right tennis elbow / SNOMED CT 0955465776 / Confirmed recent diagnosis Renal insufficiency / SNOMED CT 5273630456 / Confirmed RLS (restless legs syndrome) / SNOMED CT 57486646 / Confirmed sleep apnea with Cpap / SNOMED CT 475737442 / Confirmed, Active Problems (16) ADD (attention [...] EDT Height Source Stated Height Entry Format Royal Height/Length, PERUVIAN (ft) 5 ft Height/Length PERUVIAN 6 Inch CLINICALHEIGHT 167.64 cm [place] Body Weight 58.88 kg Weight Source, ED Standing scale Weight Entry Format Royal Weight Estonian lb 203 lb CLINICALWEIGHT 92.27 kg Body [...] patient had drank orange juice and eaten Gurmeet's breakfast -Continue home meds, defer diabetes management [...] on filedocumented in this encounter Care Teams Waterproof Material Folder Relationship Specialty Start Date End Date Taina Lyles, COIL INSPECTOR [address] [place] [address] PCP - General Nurse Practitioner 06/15/23 documented as of this encounter
--- OUTSIDE RECORDS SUMMARY | 2025-08-17 13:42 | XMS_ITS | Encounter Summary ---
Author Organization [employer] ([place], [place], [place], [place]) Address [address] [place] [address] Care Team Providers Care Beer Maker Name Role Phone Taina Lyles APRN Primary Care Provider [phone] Encounter Details Date Type Department Care Team (Late st Contact Info) Description 09/09/2020 Transcribed Document [facility] Family Medicine [address] [place] [address] ProviderWilliam MD [address] [place], [place] [id number] Social History Tobacco Use Types Packs/Day Years [...] on filedocumented in this encounter Care Teams Beer Maker Relationship Specialty Start Date End Date Zetter, Taina J, SUPERVISOR METER SHOP [address] [place] [address] PCP - General Nurse Practitioner 06/15/23 documented as of this encounter
--- OUTSIDE RECORDS SUMMARY | 2025-08-17 13:42 | XMS_ITS | Encounter Summary ---
Author Organization [facility] Address [address] [place] [address] Care Team Providers Care Welding Equipment Repairer Name Role Phone Lea Fernando Unavailable [phone] Rachel Ray GRAIN LOADER Unavailable [phone] Alvarez Zimmer MD Primary Care Provider [phone] Tamera Isabel CLINICAL ENGINEERING MANAGER Unavailable Unavailabl e Encounter Details Date [...] you attend chur ch or presybeterian services? Patient unable to answer [...] drink first t kennedy in the morning (EYE-GO CART MECHANIC) to steady your nerves or to [...] Description 08/20/2025 9:30 AM EDT Clinical Support [facility] [address] [place] [address] 08/20/2025 10:30 AM EDT Social Work [facility] [address] [place] [address] [place] [address] 08/20/2025 11:00 AM EDT Office Visit [facility] [address] [place] [address] Jude Duque MD [address] [place] [address] 08/22/2025 11:15 AM EDT Appointment [facility] [address] [place] [address] 08/22/2025 12:15 PM EDT Appointment [facility] [address] [place] [address] 08/26/2025 1:00 PM EDT Office Visit [facility] Endocrinology [address] [place] [phone] Miranda Hobson P, GRAIN LOADER [address] [facility] [address] [place] [address] 08/29/2025 10:00 AM EDT Appointment [facility] [address] [place] [address] 08/29/2025 11:00 AM EDT Appointment [facility] [address] [place] [address] 09/05/2025 10:00 AM EDT Appointment [facility] [address] [place] [address] 09/05/2025 11:00 AM EDT Appointment [facility] [address] [place] [address] documented as of this encounter Visit Diagnoses [...] documented as of this encounter Care Teams Welding Equipment Repairer Relationship Specialty Start Date End Date Alvarez Zimmer MD [address] [place] [address] PCP - General Family Medicine 12/07/24 Lea Fernando [address] [place] [address] Educational Technologist Endocrinology 08/29/24 Rachel Ray APRN [address] [place] [address] Nurse Practitioner Gastroenterology 09/24/24 Tamera Isabel LPN VALUE-BASED TRANSFORMATION PROGRAM Licensed Practical Nurse 05/29/25 documented as of this encounter
--- OUTSIDE RECORDS SUMMARY | 2025-08-17 13:42 | XMS_ITS | Encounter Summary ---
Author Organization [facility] Address [address] [place] [address] Care Team Providers Care Compressor Battery Pellets Name Role Phone Lea Fernando Unavailable [phone] Rachel Ray RAMP SERVICE AGENT Unavailable [phone] Alvarez Zimmer MD Primary Care Provider [phone] Tamera Isabel TROLLEY OPERATOR Unavailable UnavailAlina Bedolla RN Unavailable Unavailab Monique Che TROLLEY OPERATOR Unavailable Unavailable Encounter Details Date Type Department Care Team (Late st Contact Info) Description 06/17/2025 Telephone [facility] Endocrinology [address] [place] [address] Deysi Antonio MD [address] [facility] 125 [place] [address] Social History Tobacco Use Types [...] o r organizations such as mu-ism groups, BIXIs, Alset Wellen or athletic groups, or school groups? Patient [...] r organizations such as mu-ism groups, unions, Anpro21ternal or athletic groups, or school groups? No [...] more drinks on one occasion? Never 06/25/2025 [facility] of Occupat ional Health - Occupational Stress [...] drink first t kennedy in the morning (EYE-FRAME BANDER) to steady your nerves or to get rid of a hangover? 0 06/25/2025 CAGE Questionnaire Score 0 025 Utilities Answer Date Recorded In the past 12 months has th [employer], gas, oil, or water company threatened to [...] taking 52 units of Lantus daily, and [id number] units for regular meals, and 12 units [...] levels, especially at night? Best contact number: [phone] Optimal time of day to reach caller: ANYTIME Additional comments/information from caller: None Note: Please do not reply to this message. Follow-up communication and further actions as a result of this message need to be communicated with the patient directly, if the patient is not active onMyChart. If the patient is active on MyChart, they will receive notification of the communication/outcome via Emergent Onehart. documented in this encounter Plan of Treatment Upcoming Encounters Date Type Department Care Team (Late st Contact Info) Description 08/20/2025 9:30 AM EDT Clinical Support [facility] [place] [address] [place] [address] 08/20/2025 10:30 AM EDT Social Work [facility] [place] [address] [place] [address] [place] [address] 08/20/2025 11:00 AM EDT Office Visit [facility] [place] [address] [place] [address] uJde Duque MD [address] [place] [address] 08/22/2025 11:15 AM EDT Appointment [facility] [address] [place] [address] 08/22/2025 12:15 PM EDT Appointment [facility] [address] [place] [address] 08/26/2025 1:00 PM EDT Office Visit [facility] Endocrinology [address] [place] [address] Miranda Hobson, RAMP SERVICE AGENT 2[address] [facility] 125 [place] [address] 08/29/2025 10:00 AM EDT Appointment [facility] [address] [place] [address] 08/29/2025 11:00 AM EDT Appointment [facility] [address] [place] [address] 09/05/2025 10:00 AM EDT Appointment [facility] [address] [place] [address] 09/05/2025 11:00 AM EDT Appointment [facility] [address] [place] [address] documented as of this encounter Visit Diagnoses [...] documented as of this encounter Care Teams Compressor Battery Pellets Relationship Specialty Start Date End Date Alvarez Zimmer MD [address] [place] [address] PCP - General Family Medicine 12/07/24 Lea Fernando [address] [place] [address] Hvac Lead Endocrinology 08/29/24 Rachel Ray, RAMP SERVICE AGENT [address] [place] [address] Nurse Practitioner Gastroenterology 09/24/24 Tamera Isabel LPN VALUE-BASED TRANSFORMATION PROGRAM Licensed Practical Nurse 05/29/25 Alina Lovett, RN CH-VASCULAR & INTERVENTIONAL RADIOLOGY Registered Nurse 06/26/25 06/26/25 Monique Tapia LPN VALUE-BASED [place] [address] TCM Nurse 07/10/25 08/09/25 documented as of this encounter
--- OUTSIDE RECORDS SUMMARY | 2025-08-17 13:42 | XMS_ITS | Encounter Summary ---
Author Organization [employer] ([place], [place], [place], [place]) Address [address] [place] [address] Care Team Providers Care Mandarin Teacher Name Role Phone Taina Lyles ADRI Primary Care Provider [phone] Encounter Details Date Type Department Care Team (Late st Contact Info) Description 09/09/2020 Transcribed Document [facility] Family Medicine [address] [place] [address] ProviderWilliam MD [address] [place], [place] [id number] Social History Tobacco Use Types Packs/Day Years [...] On: 09/09/2020 12:24 EDT by KEITH TAVERA, PICKER PACKER Event Note ED Event Date/Time : 09/09/2020 12:24 EDT ED Event Location : Assigned room ED Event Details : Nursing assessment additional narrative ED Description of Event : pt is up for discharge. has called son to come lemon picker patient KEITH TAVERA, RN - 09/09/2020 12:24 EDT Electronically signed by Maddie Meyers Conversion Plasma Processing Centrifuge Operator Cerner at 03/07/2023 9:33 AM CDT documented in this encounter Plan of Treatment Not on file documented as of this encounter Visit Diagnoses Not on filedocumented in this encounter Care Teams Mandarin Teacher Relationship Specialty Start Date End Date Taina Lyles, TELEPHONE MAINTAINER [address] [place] [address] PCP - General Nurse Practitioner 06/15/23 documented as of this encounter
--- OUTSIDE RECORDS SUMMARY | 2025-08-17 13:42 | XMS_ITS | Encounter Summary ---
Author Organization [employer] ([place], [place], [place], [place]) Address [address] [place] [address] Care Team Providers Care Group Cio Name Role Phone Taina Lyles ADRI Primary Care Provider [phone] Encounter Details Date Type Department Care Team (Late st Contact Info) Description 07/02/2021 Transcribed Document [facility] Family Medicine [address] [place] [address] ProviderWilliam MD [address] [place], [place] [address] Social History Tobacco Use Types Packs/Day Years [...] - 07/02/2021 12:33 EDT Electronically signed by [facility] Conversion Electrical Estimator Cerner at 03/07/2023 9:50 AM CDT documented in this encounter Plan of Treatment Not on file documented as of this encounter Visit Diagnoses Not on filedocumented in this encounter Care Teams Group Cio Relationship Specialty Start Date End Date Taina Lyles, MEDICAL ADMINISTRATIVE [address] [place] [address] PCP - General Nurse Practitioner 06/15/23 documented as of this encounter
--- OUTSIDE RECORDS SUMMARY | 2025-08-17 13:42 | XMS_ITS | Encounter Summary ---
Author Organization [employer] ([place], [place], [place]) Address [address] [place] [address] Care Team Providers Care Locomotive Electrician Name Role Phone Taina Lyles ADRI Primary Care Provider [phone] Encounter Details Date Type Department Care Team (Late st Contact Info) Description 07/02/2021 Transcribed Document [facility] Family Medicine [address] [place] [address] ProviderWilliam MD [address] [place], [place] [address] Social History Tobacco Use Types Packs/Day Years [...] 07/02/2021 2:30 EDT Electronically signed by Luigi [facility] Conversion Breeder Service Technician Cerner at 03/07/2023 9:50 AM CDT documented in this encounter Plan of Treatment Not on file documented as of this encounter Visit Diagnoses Not on filedocumented in this encounter Care Teams Locomotive Electrician Relationship Specialty Start Date End Date Taina Lyles, AZURE ARCHITECT [address] [place] [address] PCP - General Nurse Practitioner 06/15/23 documented as of this encounter
--- OUTSIDE RECORDS SUMMARY | 2025-08-17 13:42 | XMS_ITS | Encounter Summary ---
Author Organization [employer] ([place], [place], [place], [place]) Address [address] [place] [address] Care Team Providers Care Cured Meats Supervisor Name Role Phone Taina Lyles ADRI Primary Care Provider [phone] Encounter Details Date Type Department Care Team (Late st Contact Info) Description 09/09/2020 Transcribed Document [facility] [place] [address] [place] [address] ProviderWilliam MD [address] [place], [place] [address] Social History Tobacco Use Types Packs/Day Years [...] on filedocumented in this encounter Care Teams Cured Meats Supervisor Relationship Specialty Start Date End Date Taina Lyles, MICA BUILDER [address] [place] [address] PCP - General Nurse Practitioner 06/15/23 documented as of this encounter
--- OUTSIDE RECORDS SUMMARY | 2025-08-17 13:43 | XMS_ITS | Encounter Summary ---
Author Organization [employer] ([place], [place], [place], [place]) Address [address] [place] [address] Care Team Providers Care Driver/Merchandiser Name Role Phone Taina Lyles APRN Primary Care Provider [phone] Encounter Details Date Type Department Care Team (Late st Contact Info) Description 01/23/2019 Transcribed Document [facility] [place] [facility] [place] [address] ProviderWilliam MD [address] [place] [address] Social History Tobacco Use Types Packs/Day Years Used Date Smoking Tobacco: Never Assessed Comments Unknown Sex and Gender Information Value Date Recorded Sex Assigned at Not on file Legal Sex Female 12:21 PM CDT Gender Identity Not on file Sexual Orientation Not on file documented as of this encounter Miscellaneous Notes * Cerner Conversion Note - William Reyes MD - 01/23/2019 2:56 PM SEA KAYAKING GUIDE [address] [address] OPERATIVE REPORT PATIENT IDENTIFICATION: MONIKA ZIMMER (Female - 1960) ACCOUNT / UNIT NUMBER: [id number] / [id number] PRIMARY CARE PHYSICIAN: ERYN PARKINSON APRN PATIENT LOCATION: [facility] 300-11 ADMIT DATE / TIME: 01/23/19 1051 DISCHARGE DATE / TIME: DICTATED: 01/23/19 0956 by VOLODYMYR VILLARREAL TRANSCRIBED: 01/23/19 1107 by PS IMPORTED: 01/23/19 1108 CC: ERYN PARKINSON APRN; FRANK LI; VOLODYMYR VILLARREAL\R\ [facility] Original DATE OF PROCEDURE: 01/23/2019 [...] correct x2. EBL 50-100 mL. Dictated By: OVLODYMYR VILLARREAL E-Signed By: GWENDOLYN [id number] [id number] [\R\ rep ct labl] [\R\ rep ct ivnm] Electronically signed by Luigi [facility] Conversion Neon Installer Cerner at 02/21/2023 1:44 PM CDT documented in this encounter Plan of Treatment Not on file documented as of this encounter Visit Diagnoses Not on filedocumented in this encounter Care Teams Driver/Merchandiser Relationship Specialty Start Date End Date Taina Lyles APRN [address] [place] [address] PCP - General Nurse Practitioner 06/15/23 documented as of this encounter
--- OUTSIDE RECORDS SUMMARY | 2025-08-17 13:43 | XMS_ITS | Encounter Summary ---
Author Organization [facility] Address [address] [place] [address] Care Team Providers Care Fibre Technologist Name Role Phone Lea Fernando Unavailable [phone] Rachel Ray EGG CASER Unavailable [phone] Alvarez Zimmer MD Primary Care Provider [phone] Tamera Isabel LPN Unavailable Unavailabl Alina Jennings RN Unavailable Unavailab le Encounter Details Date Type Department Care Team (Late st Contact Info) Description 06/23/2025 Orders Only External Location [address] [place] [address] Kandice Maldonado, EGG CASER [address] [place] [address] Social History Tobacco Use Types [...] o r organizations such as lutheran groups, [employer], [employer] or athletic groups, or school groups? Patient [...] week 05/29/2025 How often do you attend [facility] ch or baptist services? Never 05/29/2025 Do you belong to any clubs o r organizations such as lutheran groups, unions, DRESSBOOMternal or athletic groups, or school groups? No [...] occasion? Never 06/25/2025 [facility] of Occupat ional Health [...] drink first t kennedy in the morning (EYE-GAUGE INSPECTOR) to steady your nerves or to get rid of a hangover? 0 06/25/2025 CAGE Questionnaire Score 0 025 Utilities Answer Date Recorded In the past 12 months has th [employer] electric, gas, oil, or water company threatened [...] Description 08/20/2025 9:30 AM EDT Clinical Support [facility] [place] [address] [facility] [address] [place] [address] 08/20/2025 10:30 AM EDT Social Work [facility] [place] [address] [facility] [address] [place] [address] [place] [address] 08/20/2025 11:00 AM EDT Office Visit [facility] [place] [address] [facility] [address] [place] [address] Jude Duque MD [address] [facility] [address] [place] [address] 08/22/2025 11:15 AM EDT Appointment [facility] Radiology [address] [place] [address] 08/22/2025 12:15 PM EDT Appointment [facility] Radiology [address] [place] [address] 08/26/2025 1:00 PM EDT Office Visit [facility] [address] [place] [address] Miranda Hobson P, EGG CASER [address] [place] [address] 08/29/2025 10:00 AM EDT Appointment [facility] [address] [place] [address] 08/29/2025 11:00 AM EDT Appointment [facility] [address] [place] [address] 09/05/2025 10:00 AM EDT Appointment [facility] [address] [place] [address] 09/05/2025 11:00 AM EDT Appointment [facility] [address] [place] [address] documented as of this encounter Procedures Procedure [...] documented as of this encounter Care Teams Fibre Technologist Relationship Specialty Start Date End Date Alvarez Zimmer MD [address] [place] [address] PCP - General Family Medicine 12/07/24 Lea Fernando 2195 [facility] 125 [place] [address] Telecommunications Administrator Endocrinology 08/29/24 Rachel Ray APRN [address] [facility] [address] [place] [address] Nurse Practitioner Gastroenterology 09/24/24 Tamera Isabel LPN VALUE-BASED TRANSFORMATION PROGRAM Licensed Practical Nurse 05/29/25 Alina Lovett, RN CH-VASCULAR & INTERVENTIONAL RADIOLOGY Registered Nurse 06/26/25 06/26/25 documented as of this encounter
--- OUTSIDE RECORDS SUMMARY | 2025-08-17 13:43 | XMS_ITS | Encounter Summary ---
Author Organization [facility] Address [address] [place] [address] Care Team Providers Care Research Program Internship Name Role Phone Lea Fernando Unavailable [phone] Rachel Ray SPEECH LANGUAGE PATHOLOGIST ASSISTANT Unavailable [phone] Alvarez Zimmer MD Primary Care Provider [phone] Tamera Isabel SENSITOMETRIST Unavailable UnavailAlina Bedolla RN Unavailable Unavailab Monique Che SENSITOMETRIST Unavailable Unavailable Reason for Visit * Reason Onset Date Comments Med Refill 04/23/2025 Encounter Details Date Type Department Care Team (Late st Contact Info) Description 04/23/2025 Refill [facility] Medicine [address] [place] [address] Alvarez Zimmer MD [address] [place] [address] Altered mental status, unspecified altered [...] you attend [facility] or protestant services? Patient unable to answer [...] Recorded Patient Health Questionnaire-2 Score 2 04/10/2025 [facility] [...] any time in the past 12 m [facility], were you homeless or [...] drink first t kennedy in the morning (EYE-CHILD CARE TEAM LEAD) to steady your nerves or to get rid of a hangover? 0 10/22/2024 CAGE Questionnaire Score 0 024 Utilities Answer Date Recorded In the past 12 months has th e [employer], gas, oil, or water company threatened to [...] of zinc sulfate 220 mg sent to [facility] 03/01/2025. Refills remain available at the pharmacy. 90 day supply plus 1 refill of ciprofloxacin 500 mg sent to [facility] 03/01/2025. 1 refill remains available at the pharmacy. 30 day supply plus 3 refills of lactulose 10 gm/15 ml sent to [facility] 02/14/2025. Refills remain available at the pharmacy. documented in this encounter Plan of Treatment Upcoming Encounters Date Type Department Care Team (Late st Contact Info) Description 08/20/2025 9:30 AM EDT Clinical Support [facility] [place] [address] [place] [address] 08/20/2025 10:30 AM EDT Social Work [facility] [address] [place] [address] [place] [address] 08/20/2025 11:00 AM EDT Office Visit [facility] [address] [place] [address] Jude Duque MD [address] [place] [address] 08/22/2025 11:15 AM EDT Appointment [facility] [address] [place] [address] 08/22/2025 12:15 PM EDT Appointment [facility] Inter[facility] Radiology [address] [place] [address] 08/26/2025 1:00 PM EDT Office Visit [facility] Endocrinology [address] [place] [address] Miranda Hobson, SPEECH LANGUAGE PATHOLOGIST ASSISTANT 2[address] [facility] 125 [place] [address] 08/29/2025 10:00 AM EDT Appointment [facility] [address] [place] [address] 08/29/2025 11:00 AM EDT Appointment [facility] [address] [place] [address] 09/05/2025 10:00 AM EDT Appointment [facility] [address] [place] [address] 09/05/2025 11:00 AM EDT Appointment [facility] [address] [place] [address] documented as of this encounter Visit Diagnoses [...] as of this encounter Care Teams Research Program Internship Relationship Specialty Start Date End Date Alvarez Zimmer MD [address] [place] [address] PCP - General Family Medicine 12/07/24 Lea Fernando 2[address] [facility] [address] [place] [address] Holistic Health Practitioner Endocrinology 08/29/24 Rachel Ray, SPEECH LANGUAGE PATHOLOGIST ASSISTANT [address] [place] [address] [place] [address] Nurse Practitioner Gastroenterology 09/24/24 Tamera Isabel LPN VALUE-BASED TRANSFORMATION PROGRAM Licensed Practical Nurse 05/29/25 Alina Lovett, RN CH-VASCULAR & INTERVENTIONAL RADIOLOGY Registered Nurse 06/26/25 06/26/25 Monique Tapia LPN VALUE-BASED [place] [address] TCM Nurse 07/10/25 08/09/25 documented as of this encounter
--- OUTSIDE RECORDS SUMMARY | 2025-08-17 13:43 | XMS_ITS | Encounter Summary ---
Author Organization [employer] ([place], [place], [place], [place]) Address [address] [place] [address] Care Team Providers Care Watch And Clock Repairer Name Role Phone Taina Lyles APRN Primary Care Provider [phone] Encounter Details Date Type Department Care Team (Late st Contact Info) Description 09/09/2020 Transcribed Document [facility] Family Medicine [address] [place] [address] ProviderWilliam MD [address] [place], [place] [address] Social History Tobacco Use Types Packs/Day Years [...] PCP to further evaluate her GI distress. Electronically signed by Maddie Meyers Conversion Fiberglass Quality Technician Cerner at 03/07/2023 9:35 AM CDT documented in this encounter Plan of Treatment Not on file documented as of this encounter Visit Diagnoses Not on filedocumented in this encounter Care Teams Watch And Clock Repairer Relationship Specialty Start Date End Date Taina Lyles, ADRI [address] [place] [address] PCP - General Nurse Practitioner 06/15/23 documented as of this encounter
--- OUTSIDE RECORDS SUMMARY | 2025-08-17 13:43 | XMS_ITS | Encounter Summary ---
Author Organization [facility] Address [address] [place] [address] Care Team Providers Care Adjunct Spanish Instructor Name Role Phone Wilma Howard Ambar ROUSEN Primary Care Provider [phone] Lea Fernando Unavailable [phone] Rachel Ray SOUNDSCRIBER MECHANIC Unavailable [phone] Taina Lyles SOUNDSCRIBER MECHANIC Primary Care Provider [phone] Monique Tapia LPN Unavailable Unavailable Alvarez Zimmer MD Primary Care Provider [phone] Shaniqua Trevino TRIMMING PRESS OPERATOR Unavailable Unavailable Tamera Isabel TRIMMING PRESS OPERATOR Unavailable UnavailAlina Bedolla RN Unavailable Unavailab Monique Che LPN Unavailable Unavailable Encounter Details Date Type Department Care Team (Late st Contact Info) Description 02/02/2024 Orders Only External Location [address] [place] [address] Provider, External Social History Tobacco Use Types [...] AM EDT Clinical Support [facility] [address] [place] [address] 08/20/2025 10:30 AM EDT Social Work [facility] [address] [facility] [place] [address] [place] [address] 08/20/2025 11:00 AM EDT Office Visit [facility] [address] [place] [address] Jude Duque MD [address] [facility] [address] [place] [address] 08/22/2025 11:15 AM EDT Appointment [facility] [address] [place] [address] 08/22/2025 12:15 PM EDT Appointment [facility] [address] [place] [address] 08/26/2025 1:00 PM EDT Office Visit [facility] Endocrinology [address] [place] [address] Miranda Hobson P, SOUNDSCRIBER MECHANIC [address] [place] [address] 08/29/2025 10:00 AM EDT Appointment [facility] [address] [place] [address] 08/29/2025 11:00 AM EDT Appointment [facility] [address] [place] [address] 09/05/2025 10:00 AM EDT Appointment [facility] [address] [place] [address] 09/05/2025 11:00 AM EDT Appointment [facility] [address] [place] [address] documented as of this encounter Procedures Procedure [...] documented as of this encounter Care Teams Adjunct Spanish Instructor Relationship Specialty Start Date End Date Wilma Howard APRN [address] [place] [address] [place] [address] PCP - General 04/03/21 09/30/24 Taina Lyles APRN [address] [place] [address] [place] [address] PCP - General 10/01/24 12/06/24 Alvarez Zimmer MD [facility] [address] [place] [address] PCP - General Family Medicine 12/07/24 Lea Fernando [address] [place] [address] Professor Of Social Work Endocrinology 08/29/24 Rachel Ray, ADRI [address] [place] [address] Nurse Practitioner Gastroenterology 09/24/24 Monique Tapia LPN VALUE-BASED [place] [address] TCM Nurse 11/28/24 12/28/24 Shaniqua Trevino LPN TCM Nurse 01/15/25 02/14/25 Tamera Isabel LPN VALUE-BASED TRANSFORMATION PROGRAM Licensed Practical Nurse 05/29/25 Alina Lovett, RN CH-VASCULAR & INTERVENTIONAL RADIOLOGY Registered Nurse 06/26/25 06/26/25 Monique Tapia LPN VALUE-BAS[place] [address] TCM Nurse 07/10/25 08/09/25 documented as of this encounter
--- OUTSIDE RECORDS SUMMARY | 2025-08-17 13:43 | XMS_ITS | Encounter Summary ---
Author Organization [employer] ([place], [place], [place], [place]) Address [address] [place] [address] Care Team Providers Care Freezer Person Name Role Phone Taina Lyles ADRI Primary Care Provider [phone] Encounter Details Date Type Department Care Team (Late st Contact Info) Description 09/11/2020 Transcribed Document [facility] [address] [place] [address] ProviderWilliam MD [address] [place], [place] [id number] Social History Tobacco Use Types Packs/Day Years [...] on filedocumented in this encounter Care Teams Freezer Person Relationship Specialty Start Date End Date Taina Lyles, NEWSPAPER PHOTOGRAPHER [address] [place] [address] PCP - General Nurse Practitioner 06/15/23 documented as of this encounter
--- OUTSIDE RECORDS SUMMARY | 2025-08-17 13:43 | XMS_ITS | Encounter Summary ---
Author Organization [employer] ([place], [place], [place], [place]) Address [address] [place] [address] Care Team Providers Care Utility Locate Technician Name Role Phone Taina Lyles APRN Primary Care Provider [phone] Encounter Details Date Type Department Care Team (Late st Contact Info) Description 09/08/2020 Transcribed Document [facility] [place] [address] [place] [address] ProviderWilliam MD [address] [place], [place] [address] Social History Tobacco Use Types Packs/Day Years [...] & time 09/08/2020 15:30:00, Voice recognition / transport coordinator technology used for some documentation in this [...] Tab, Oral, QAM, 30 Tab, 0 Refill(s) Antler 7.5 mg-325 mg oral tablet: 1 Tab, [...] EDT Height Source Estimated Height Entry Format [place] Height/Length, RUSSIAN (ft) 5 ft Height/Length RUSSIAN 5 Inch CLINICALHEIGHT 165.1 cm [place] Body Weight 56.59 kg Weight Source, ED Critical estimated dosing weight Weight Entry Format [place] Weight Indonesian lb 190 lb CLINICALWEIGHT 86.36 kg Body [...] Orders Ordered Blood Pressure: Cardiac Monitoring: ED senior staff accountant: EKG: Place in Observation: Pulse Oximetry Continuous [...] % 41.0 % Lymph # 3.73 K/uL [place] % 9.5 % [place] # 0.86 K/uL [place] Eos % 2.9 [...] pressure), Interventions hemodynamic management, Case review medical pathology teacher. Performed by: self. Heart Score Heart History: [...] on filedocumented in this encounter Care Teams Utility Locate Technician Relationship Specialty Start Date End Date Taina Lyles, ADRI [address] [place] [address] PCP - General Nurse Practitioner 06/15/23 documented as of this encounter
--- OUTSIDE RECORDS SUMMARY | 2025-08-17 13:43 | XMS_ITS | Encounter Summary ---
Author Organization [employer] ([place], [place], [place], [place]) Address [address] [place] [address] Care Team Providers Care Insurance Adjustor Name Role Phone Taina Lyles APRN Primary Care Provider [phone] Encounter Details Date Type Department Care Team (Late st Contact Info) Description 10/05/2019 Transcribed Document [facility] [place] [facility] [place] [address] ProviderWilliam MD [address] [place] [address] Social History Tobacco Use Types Packs/Day Years Used Date Smoking Tobacco: Never Assessed Comments Unknown Sex and Gender Information Value Date Recorded Sex Assigned at Not on file Legal Sex Female 12:21 PM CDT Gender Identity Not on file Sexual Orientation Not on file documented as of this encounter Miscellaneous Notes * Cerner Conversion Note - William Reyes MD - 10/05/2019 3:36 PM SOCIAL WORKER ASSISTANT [address] [address] OPERATIVE REPORT PATIENT IDENTIFICATION: MONIKA ZIMMER (Female - 1960) ACCOUNT / UNIT NUMBER: [id number] / [id number] PRIMARY CARE PHYSICIAN: ERYN PARKINSON APRN PATIENT LOCATION: [facility] [place] DATE / TIME: 10/05/19 0723 DISCHARGE [...] for flow rate and bladder ultrasound PVR. /[id number] Dictated By: VOLODYMYR VILLARREAL E-Signed By: ALDO [id number] [\R\ rep ct labl] [\R\ rep ct ivnm] Medical Disclaimer: This report is to be considered preliminary until reviewed and signed. documented in this encounter Plan of Treatment Not on file documented as of this encounter Visit Diagnoses Not on filedocumented in this encounter Care Teams Insurance Adjustor Relationship Specialty Start Date End Date Taina Lyles, ADRI [address] [place] [address] PCP - General Nurse Practitioner 06/15/23 documented as of this encounter
--- OUTSIDE RECORDS SUMMARY | 2025-08-17 13:43 | XMS_ITS | Encounter Summary ---
Author Organization [employer] ([place], [place], [place], [place]) Address [address] [place] [address] Care Team Providers Care Process Development Associate Name Role Phone Taina Lyles STRAINER MILL OPERATOR Primary Care Provider [phone] Encounter Details Date Type Department Care Team (Late st Contact Info) Description 09/09/2020 Transcribed Document [facility] [place] [address] [place] [address] ProviderWilliam MD [address] [place] [address] Social History Tobacco Use Types [...] Reyes MD - 09/09/2020 3:03 PM CDT [place] [id number] MONIKA ZIMMER :1960 Visit Time:09/08/2020 Your Visit [...] 1 week Where: [address] [facility] [address] [place] [address]- Business (1) Follow Up with ERYN PARKINSON When Within 2 to 3 days Where: [address] [place] [address] [facility] (1) Allergies No Known Allergies Immunizations This Visit No Immunizations Found Medications What How Much When Instructions Next Dose isosorbide mononitrate (isosorbide mononitrate 60 mg oral tablet, extended release) 1 Tablet(s) Oral Every Morning Duration: 30 Day(s) Pickup at [facility] albuterol (Ventolin HFA 90 [...] oral tablet) Oral At Bedtime Pharmacy Information [facility]: [address] [facility] [place] [phone] The home medications listed are only as [...] range between ( 1.0 and 7.0 ) [place] #: 0.94 K/uL -- Normal range between ( 0.24 and 0.82 ) Eos #: 0.32 K/uL -- Normal range between ( 0.04 and 0.54 ) [place] %: 7.6 % -- Normal range between [...] ) Urine Bilirubin Dipstick: Negative Urine Specific [place]: *1.026 -- Normal range between ( 1.005 and 1.030 ) Microbiology 09/08/2020 8:19 PM Novel Coronavirus 2019: Negative Urine Chemistry 09/08/2020 8:19 PM Osmolality Urine: 662 mOsm/kg -- Normal range between ( 250 and 900 ) Sodium Ur [place]: 127 mMole/Liter General Chemistry 09/09/2020 12:10 PM [...] lot of fat or sugar. ??? Take rkfa-uxe-nbzsrua and prescription medicines only as told by [...] 11/07/2006 Document Revised: 10/20/2018 Document Reviewed: 12/31/2016 [employer] Patient Education ?? 2020 [employer] Angina Angina is extreme discomfort in [...] these instructions at home: Medicines ??? Take cejz-coo-rswbcnd and prescription medicines only as told by [...] 11/07/2006 Document Revised: 06/25/2019 Document Reviewed: 06/25/2019 [employer] Patient Education ?? 2020 [employer] Emergency Awareness and Preventative Care STROKE [...] Assistance with quitting is available by contacting 8-470-MLMP-NOW. This is a free resource providing counseling, [...] was given the opportunity to ask questions. Patient/Satellite Specialist Name: Patient/Satellite Specialist Signature: Relationship to Patient: Clinician/Hospital Satellite Specialist Signature: Please Provide a Telephone Number Where You Can Be Reached: Is it Permissible To Leave a Message? Date: documented in this encounter Plan of Treatment Not on file documented as of this encounter Visit Diagnoses Not on filedocumented in this encounter Care Teams Process Development Associate Relationship Specialty Start Date End Date Taina Lyles, STRAINER MILL OPERATOR [address] [place] [address] PCP - General Nurse Practitioner 06/15/23 documented as of this encounter
--- OUTSIDE RECORDS SUMMARY | 2025-08-17 13:43 | XMS_ITS | Encounter Summary ---
Author Organization [employer] ([place], [place], [place], [place]) Address [address] [place] [address] Care Team Providers Care Drapery Head Former Name Role Phone Taina Lyles APRN Primary Care Provider [phone] Encounter Details Date Type Department Care Team (Late st Contact Info) Description 01/24/2019 Transcribed Document [facility] [place] [facility] [address] ProviderWilliam MD [address] [place] [address] Social History Tobacco Use Types Packs/Day Years Used Date Smoking Tobacco: Never Assessed Comments Unknown Sex and Gender Information Value Date Recorded Sex Assigned at Not on file Legal Sex Female 12:21 PM CDT Gender Identity Not on file Sexual Orientation Not on file documented as of this encounter Miscellaneous Notes * Cerner Conversion Note - William Reyes MD - 01/24/2019 7:43 PM COMMERCIAL LINES INSURANCE AGENT [address] [address] DISCHARGE SUMMARY PATIENT IDENTIFICATION: MONIKA ZIMMER (Female - 1960) ACCOUNT / UNIT NUMBER: [id number] / [id number] PRIMARY CARE PHYSICIAN: ERYN HOWARD APRN PATIENT LOCATION: [facility] 300-11 ADMIT DATE / TIME: 01/23/19 1051 [...] U-500 could be resumed on discharge. Continue French Diabetes Association diet. 3. Coronary artery disease/dyslipidemia, [...] Tylenol 650 q.4 h. as needed. 2. [place] 10 mg 1-2 tabs q.4 h. as [...] [\R\ rep ct ivnm] Electronically signed by Maddie Meyers Conversion Commercial Loan Administrator Cerner at 02/21/2023 1:44 PM CDT documented in this encounter Plan of Treatment Not on file documented as of this encounter Visit Diagnoses Not on filedocumented in this encounter Care Teams Drapery Head Former Relationship Specialty Start Date End Date Taina Lyles, PUTTY MIXER [address] [place] [address] PCP - General Nurse Practitioner 06/15/23 documented as of this encounter
--- OUTSIDE RECORDS SUMMARY | 2025-08-17 13:43 | XMS_ITS | Encounter Summary ---
Author Organization Healthcare Address [address] [place] [address] Care Team Providers Care Mental Health Practitioner Name Role Phone Wilma Howard Ambar ROUSEN Primary Care Provider [phone] Lea Fernando Unavailable [phone] Rachel Ray PROJECT INSPECTOR Unavailable [phone] Taina Lyles PROJECT INSPECTOR Primary Care Provider Monique Tapia LPN Unavailable Unavailable Alvarez Zimmer MD Primary Care Provider [phone] Shaniqua Trevino GUYLINE OPERATOR Unavailable Unavailable Tamera Isabel GUYLINE OPERATOR Unavailable UnavailAlina Bedolla RN Unavailable Unavailab Monique Che LPN Unavailable Unavailable Encounter Details Date Type Department Care Team (Late st Contact Info) Description 02/02/2024 Orders Only External Location [address] [place] [address] Provider, External Social History Tobacco Use Types [...] AM EDT Clinical Support [facility] [place] [address] [place] [address] 08/20/2025 10:30 AM EDT Social Work [facility] [address] [facility] [place] [address] [place] [address] 08/20/2025 11:00 AM EDT Office Visit [facility] [address] [place] [address] Jude Duque MD [address] [email or web address] [address] [place] [address] 08/22/2025 11:15 AM EDT Appointment [facility] [address] [place] [address] 08/22/2025 12:15 PM EDT Appointment [facility] [address] [place] [address] 08/26/2025 1:00 PM EDT Office Visit [facility] Endocr[facility] [address] [place] [address] Miranda Hobson P, PROJECT INSPECTOR [address] [place] [address] 08/29/2025 10:00 AM EDT Appointment [facility] [address] [place] [address] 08/29/2025 11:00 AM EDT Appointment [facility] [address] [place] [address] 09/05/2025 10:00 AM EDT Appointment [facility] [address] [place] [address] 09/05/2025 11:00 AM EDT Appointment [facility] [address] [place] [address] documented as of this encounter Procedures Procedure [...] documented as of this encounter Care Teams Mental Health Practitioner Relationship Specialty Start Date End Date Wilma Howard APRN [address] [place] [address] [place] [address] PCP - General 04/03/21 09/30/24 Taina Lyles APRN [address] [place] [address] [place] [address] PCP - General 10/01/24 12/06/24 Alvarez Zimmer MD [facility] [place] [address] PCP - General Family Medicine 12/07/24 Lea Fernando [address] [place] [address] Automotive Design Layout Drafter Endocrinology 08/29/24 Rachel Ray, ADRI [address] [place] [address] Nurse Practitioner Gastroenterology 09/24/24 Monique Tapia LPN VALUE-BASED [place] [address] TCM Nurse 11/28/24 12/28/24 Shaniqua Trevino LPN TCM Nurse 01/15/25 02/14/25 Tamera Isabel LPN VALUE-BASED TRANSFORMATION PROGRAM Licensed Practical Nurse 05/29/25 Alina Lovett, RN [facility]-VASCULAR & INTERVENTIONAL RADIOLOGY Registered Nurse 06/26/25 06/26/25 Monique Tapia LPN VALUE-BASED [place] [address] TCM Nurse 07/10/25 08/09/25 documented as of this encounter
--- OUTSIDE RECORDS SUMMARY | 2025-08-17 13:43 | XMS_ITS | Encounter Summary ---
Author Organization Healthcare Address [address] [place] [address] Care Team Providers Care Making Machine Operator Name Role Phone NaseemScar Lea Clarke Unavailable [phone] Rachel Ray PLASTERING SUPERVISOR Unavailable [phone] Taina Lyles PLASTERING SUPERVISOR Primary Care Provider [phone] Monique Tapia EXHIBIT DESIGNER Unavailable Unavailable Alvarez Zimmer MD Primary Care Provider [phone] Shaniqua Trevino EXHIBIT DESIGNER Unavailable Unavailable Tamera Isabel EXHIBIT DESIGNER Unavailable UnavailAlina Bedolla RN Unavailable Unavailab Monique Che LPN Unavailable Unavailable Encounter Details Date Type Department Care Team (Late st Contact Info) Description 10/24/2024 Ophth Exam [facility] [address] [place] [address] Serene Barragan MD [address] [place] [address] Social History Tobacco Use Types [...] and Family Not on file 10/16/2024 Attends Gnosticism Services Not on file 10/16 Active Member [...] a group home (including now)? Yes 08/29/2024 Housing Stability Vital [...] in a group home (including now)? No 10/16/2024 CAGE ASSESSMENT Answer [...] drink first t kennedy in the morning (EYE-SEWER MAINTENANCE SUPERVISOR) to steady your nerves or to [...] (Past 1 Month) No 10/26/2024 8:00 PM EST Rochelle Wallace, RN 6. Suicidal Behavior (Lifetime) No 8:00 PM EST Rochelle Wallace, RN documented as of this encounter Plan of Treatment Upcoming Encounters Date Type Department Care Team (Late st Contact Info) Description 08/20/2025 9:30 AM EDT Clinical Support [facility] [place] [address] [facility] [address] [place] [address] 08/20/2025 10:30 AM EDT Social Work [facility] [place] [address] [facility] [place] [address] Deysi Ortega [place], [place] [phone] 08/20/2025 11:00 AM EDT Office Visit [facility] [place] [address] [facility] [address] [place] [address] Jude Duque MD [address] [facility] [address] [place] [address] 08/22/2025 11:15 AM EDT Appointment [facility] [address] [place] [address] 08/22/2025 12:15 PM EDT Appointment [facility] [address] [place] [address] 08/26/2025 1:00 PM EDT Office Visit [facility] Endocrinology [address] [place] [address] Miranda Hobson P, PLASTERING SUPERVISOR [address] [facility] [address] [place] [address] 08/29/2025 10:00 AM EDT Appointment [facility] [address] [place] [address] 08/29/2025 11:00 AM EDT Appointment [facility] [address] [place] [address] 09/05/2025 10:00 AM EDT Appointment [facility] [address] [place] [address] 09/05/2025 11:00 AM EDT Appointment [facility] [address] [place] [address] documented as of this encounter Visit Diagnoses [...] documented as of this encounter Care Teams Making Machine Operator Relationship Specialty Start Date End Date Taina Lyles, PLASTERING SUPERVISOR [address] [place] [address] [place] [address] PCP - General 10/01/24 12/06/24 Alvarez Zimmer MD [address] [place] [address] PCP - General Family Medicine 12/07/24 Lea Fernando [address] [facility] [address] [place] [address] Head Kiln Operator Endocrinology 08/29/24 Rachel Ray, PLASTERING SUPERVISOR [address] [facility] [address] [place] [address] Nurse Practitioner Gastroenterology 09/24/24 Monique Tapia LPN VALUE-BASED [place] [address] TCM Nurse 11/28/24 12/28/24 Shaniqua Trevino LPN TCM Nurse 01/15/25 02/14/25 Tamera Isabel LPN VALUE-BASED TRANSFORMATION PROGRAM Licensed Practical Nurse 05/29/25 Alina Lovett, RN CH-VASCULAR & INTERVENTIONAL RADIOLOGY Registered Nurse 06/26/25 06/26/25 Monique Tapia LPN VALUE-BASED [place] [address] TCM Nurse 07/10/25 08/09/25 documented as of this encounter
--- OUTSIDE RECORDS SUMMARY | 2025-08-17 13:43 | XMS_ITS | Encounter Summary ---
Author Organization [employer] ([place], [place], [place], [place]) Address [address] [place] [address] Care Team Providers Care Scheduling Clerk Name Role Phone Taina Lyles ADRI Primary Care Provider [phone] Encounter Details Date Type Department Care Team (Late st Contact Info) Description 09/08/2020 Transcribed Document [facility] [place] [address] [place] [address] ProviderWilliam MD [address] [place], [place] [address] Social History Tobacco Use Types Packs/Day Years [...] on filedocumented in this encounter Care Teams Scheduling Clerk Relationship Specialty Start Date End Date Taina Lyles, COTTON BROKER [address] [place] [address] PCP - General Nurse Practitioner 06/15/23 documented as of this encounter
--- OUTSIDE RECORDS SUMMARY | 2025-08-17 13:43 | XMS_ITS | Encounter Summary ---
Author Organization Healthcare Address [address] [place] [address] Care Team Providers Care Outdoor Studies Director Name Role Phone Lea Fernando Unavailable [phone] Rachel Ray GREY IRON MOLDER Unavailable [phone] Alvarez Zimmer MD Primary Care Provider [phone] Tamera Isabel LPN Unavailable Unavailabl Alina Jennings RN Unavailable Unavailab le Encounter Details Date Type Department Care Team (Late st Contact Info) Description 06/23/2025 Orders Only External Location [address] [place] [address] Kandice Maldonado, GREY IRON MOLDER [address] [place] [address] Social History Tobacco Use Types [...] o r organizations such as anabaptism groups, Fliplingos, Clinicient or athletic groups, or school groups? Patient [...] week 05/29/2025 How often do you attend [facility] ch or voodoo services? Never 05/29/2025 Do you belong to any clubs o r organizations such as anabaptism groups, unions, [facility] [employer] or athletic groups, or school groups? No [...] more drinks on one occasion? Never 06/25/2025 [facility] - [...] drink first t kennedy in the morning (EYE-CORE WORKER) to steady your nerves or to get rid of a hangover? 0 06/25/2025 CAGE Questionnaire Score 0 025 Utilities Answer Date Recorded In the past 12 months has th [employer] electric, gas, oil, or water company threatened [...] 08/20/2025 9:30 AM EDT Clinical Support [facility] [place] [address] [facility] [address] [place] [address] 08/20/2025 10:30 [address] ED[address] [facility] [place] [address] [facility] [address] [place] [address] [place] [address] 08/20/2025 11:00 AM EDT Office Visit [facility] [place] [address] [facility] [address] [place] [address] Jude Duque MD [address] [facility] [address] [place] [address] 08/22/2025 11:15 AM EDT Appointment [facility] [address] [place] [address] 08/22/2025 12:15 PM EDT Appointment [facility] [address] [place] [address] 08/26/2025 1:00 PM EDT Office Visit [facility] [address] [place] [address] Miranda Hobson P, GREY IRON MOLDER [address] [place] [address] 08/29/2025 10:00 AM EDT Appointment [facility] [address] [place] [address] 08/29/2025 11:00 AM EDT Appointment [facility] [address] [place] [address] 09/05/2025 10:00 AM EDT Appointment [facility] [address] [place] [address] 09/05/2025 11:00 AM EDT Appointment [facility] [address] [place] [address] documented as of this encounter Procedures Procedure Name Priority Date/Time Associated Diagnosis Comments XR OUTSIDE IMAGES 06/23/2025 5:56 PM EDT documented in this encounter Results * XR OUTSIDE IMAGES (06/23/2025 5:56 PM EDT) Anatomical Region Laterality Modality Radiographic [place] ging 06/23/2025 5:56 PM EDT Kandice Maldonado APRN IMG XR PROCEDURES Final Res ult documented [...] documented as of this encounter Care Teams Outdoor Studies Director Relationship Specialty Start Date End Date Alvarez Zimmer MD [address] [place] [address] PCP - General Family Medicine 12/07/24 Lea Fernando [address] [facility] 125 [place] [address] Dress Designer Endocrinology 08/29/24 Rachel Ray APRN [address] [facility] [address] [place] [address] Nurse Practitioner Gastroenterology 09/24/24 Tamera Isabel LPN VALUE-BASED TRANSFORMATION PROGRAM Licensed Practical Nurse 05/29/25 Alina Lovett, RN CH-VASCULAR & INTERVENTIONAL RADIOLOGY Registered Nurse 06/26/25 06/26/25 documented as of this encounter
--- OUTSIDE RECORDS SUMMARY | 2025-08-17 13:43 | XMS_ITS | Encounter Summary ---
Author Organization [employer] ([place], [place], [place], [place] Address [address] [place] [address] Care Team Providers Care Probation Supervisor Name Role Phone Taina Lyles GUM MAKER Primary Care Provider [phone] Encounter Details Date Type Department Care Team (Late st Contact Info) Description 07/01/2021 Transcribed Document [facility] [place] [facility] [place] [address] ProviderWilliam MD [address] [place], [place] [address] Social History Tobacco Use Types Packs/Day Years [...] EDT Height Source Stated Height Entry Format [place] Height/Length, [place] (ft) 5 ft Height/Length [place] 6 Inch CLINICALHEIGHT 167.64 cm [place] Body Weight 58.88 kg Weight Source, ED Standing scale Weight Entry Format [place] Weight Nigerien lb 203 lb CLINICALWEIGHT 92.27 kg Body [...] % LOW Lymph # 1.03 K/uL LOW [place] % 8.2 % [place] # 0.66 K/uL Eos % 6.1 % [...] cardiology. Electronically signed by Maddie Meyers Conversion Fruit And Vegetable Factory Worker Cerner at 03/07/2023 9:56 AM CDT documented in this encounter Plan of Treatment Not on file documented as of this encounter Visit Diagnoses Not on filedocumented in this encounter Care Teams Probation Supervisor Relationship Specialty Start Date End Date Taina Lyles, ADRI [address] [place] [address] PCP - General Nurse Practitioner 06/15/23 documented as of this encounter
--- OUTSIDE RECORDS SUMMARY | 2025-08-17 13:43 | XMS_ITS | Encounter Summary ---
Author Organization Healthcare Address [address] [place] [address] Care Team Providers Care Migratory Game Bird Biologist Name Role Phone Wilma Howard Ambar ROUSEN Primary Care Provider [phone] Lea Fernando Unavailable [phone] Rachel Ray LASER SPECIALIST Unavailable [phone] Taina Lyles LASER SPECIALIST Primary Care Provider [phone] Monique Tapia LPN Unavailable Unavailable Alvarez Zimmer MD Primary Care Provider [phone] Shaniqua Trevino ROLLS BAKER Unavailable Unavailable Tamera Isabel ROLLS BAKER Unavailable UnavailAlina Bedolla RN Unavailable Unavailab Monique Che LPN Unavailable Unavailable Encounter Details Date Type Department Care Team (Late st Contact Info) Description 07/14/2024 Orders Only External Location [address] [place] [address] Provider, External Social History Tobacco Use Types [...] EDT Clinical Support [facility] [place] [address] [place] [address] 08/20/2025 10:30 AM EDT Social Work [facility] [place] [address] [facility] [place] [address] [place] [address] 08/20/2025 11:00 AM EDT Office Visit [facility] [place] [address] [place] [address] Jude Duque MD [address] [facility] [address] [place] [address] 08/22/2025 11:15 AM EDT Appointment [facility] [address] [place] [address] 08/22/2025 12:15 PM EDT Appointment [facility] [address] [place] [address] 08/26/2025 1:00 PM EDT Office Visit [facility] Endocrinology [address] [place] [address] Miranda Hobson P, LASER SPECIALIST [address] [place] [address] 08/29/2025 10:00 AM EDT Appointment [facility] [address] [place] [address] 08/29/2025 11:00 AM EDT Appointment [facility] [address] [place] [address] 09/05/2025 10:00 AM EDT Appointment [facility] [address] [place] [address] 09/05/2025 11:00 AM EDT Appointment [facility] [address] [place] [address] documented as of this encounter Procedures Procedure Name Priority Date/Time Associated Diagnosis Comments CT OUTSIDE IMAGES 07/14/2024 4:31 PM EDT documented in this encounter Results * CT OUTSIDE IMAGES (07/14/2024 4:31 PM EDT) Anatomical Region Laterality Modality Computed Tomogra phy 07/14/2024 4:31 PM EDT External Provider IMG CT PROCEDURES Final Result [...] documented as of this encounter Care Teams Migratory Game Bird Biologist Relationship Specialty Start Date End Date Wilma Howard APRN [address] [place] [address] [place] [address] PCP - General 04/03/21 09/30/24 Taina Lyles APRN [address] [place] [address] [place] [address] PCP - General 10/01/24 12/06/24 Alvarez Zimmer MD [facility] [place] [address] PCP - General Family Medicine 12/07/24 Lea Fernando [address] [place] [address] Aspnet Developer Endocrinology 08/29/24 Rachel Ray, ADIR [address] [place] [address] Nurse Practitioner Gastroenterology 09/24/24 Monique Tapia LPN VALUE[employer] [place] [address] TCM Nurse 11/28/24 12/28/24 Shaniqua Trevino LPN TCM Nurse 01/15/25 02/14/25 Tamera Isabel LPN VALUE-BASED TRANSFORMATION PROGRAM Licensed Practical Nurse 05/29/25 Alina Lovett, RN [facility]-VASCULAR & INTERVENTIONAL RADIOLOGY Registered Nurse 06/26/25 06/26/25 Monique Tapia LPN VALUE[employer] [address] TCM Nurse 07/10/25 08/09/25 documented as of this encounter
--- OUTSIDE RECORDS SUMMARY | 2025-08-17 13:43 | XMS_ITS | Encounter Summary ---
Author Organization [employer] ([place], [place], [place], [place]) Address [address] [place] [address] Care Team Providers Care Senior Salesforce Developer Name Role Phone Taina Lyles Carmel RUSH Primary Care Provider [phone] Encounter Details Date Type Department Care Team (Late st Contact Info) Description 09/08/2020 Transcribed Document [facility] [place] Family Medicine [address] [place] [address] ProviderWilliam MD [address] [place], [place] [id number] Social History Tobacco Use Types Packs/Day Years [...] Reyes MD - 09/08/2020 3:25 PM CDT [place] Suicide Severity Rating Scale (C-SSRS) Entered On: 09/08/2020 16:35 EDT Performed On: 09/08/2020 16:31 EDT by Angelina Cuello RN [place] Suicide Severity Rating Scale (C-SSRS) CSSRS Past [...] on filedocumented in this encounter Care Teams Senior Salesforce Developer Relationship Specialty Start Date End Date Taina Lyles, QUALITATIVE FIELD COORDINATOR [address] [place] [address] PCP - General Nurse Practitioner 06/15/23 documented as of this encounter
--- OUTSIDE RECORDS SUMMARY | 2025-08-17 13:43 | XMS_ITS | Encounter Summary ---
Author Organization Healthcare Address [address] [place] [address] Care Team Providers Care Electronics Specialist Name Role Phone Wilma Howard Ambar ROUSEN Primary Care Provider [phone] Lea Fernando Unavailable [phone] Rachel Ray BLOCK SAWYER Unavailable [phone] Taina Lyles BLOCK SAWYER Primary Care Provider [phone] Monique Tapia LPN Unavailable Unavailable Alvarez Zimmer MD Primary Care Provider [phone] Shaniqua Trevino DISEASE CASE MANAGER Unavailable Unavailable Tamera Isabel DISEASE CASE MANAGER Unavailable UnavailAlina Bedolla RN Unavailable Unavailab Monique Che LPN Unavailable Unavailable Encounter Details Date Type Department Care Team (Late st Contact Info) Description 09/14/2024 Orders Only External Location [address] [place] [address] Provider, External Social History Tobacco Use Types [...] a nursing home (including now)? Yes 08/29/2024 Education Answer Date [...] Description 08/20/2025 9:30 AM EDT Clinical Support [facility] [address] [place] [address] 08/20/2025 10:30 AM EDT Social Work [facility] [address] [place] [address] Deysi Ortega [place], [place] [address] 08/20/2025 11:00 AM EDT Office Visit [facility] [address] [place] [address] Jude Duque MD [address] [place] [address] 08/22/2025 11:15 AM EDT Appointment [facility] [address] [place] [address] 08/22/2025 12:15 PM EDT Appointment [facility] Inter[facility] Radiology [address] [place] [address] 08/26/2025 1:00 PM EDT Office Visit [facility] Endocrinology [address] [place] [address] Miranda Hobson P, BLOCK SAWYER [address] [facility] [address] [place] [address] 08/29/2025 10:00 AM EDT Appointment [facility] [address] [place] [address] 08/29/2025 11:00 AM EDT Appointment [facility] [address] [place] [address] 09/05/2025 10:00 AM EDT Appointment [facility] [address] [place] [address] 09/05/2025 11:00 AM EDT Appointment [facility] [address] [place] [address] documented as of this encounter Procedures Procedure [...] documented as of this encounter Care Teams Electronics Specialist Relationship Specialty Start Date End Date Wilma Howard APRN [address] [place] [address] [place] [address] PCP - General 04/03/21 09/30/24 Taina Lyles APRN [address] [place] [address] [place] [address] PCP - General 10/01/24 12/06/24 Alvarez Zimmer MD [address] [place] [address] PCP - General Family Medicine 12/07/24 Lea Fernando [address] [place] [address] Machine Boss Endocrinology 08/29/24 Rachel Ray APRN [address] [place] [address] Nurse Practitioner Gastroenterology 09/24/24 Mnoique Tapia LPN [employer] [place] [address] TCM Nurse 11/28/24 12/28/24 Shaniqua Trevino LPN TCM Nurse 01/15/25 02/14/25 Tamera Isabel LPN VALUE-BASED TRANSFORMATION PROGRAM Licensed Practical Nurse 05/29/25 Alina Lovett, RN CH-VASCULAR & INTERVENTIONAL RADIOLOGY Registered Nurse 06/26/25 06/26/25 Monique Tapia LPN VALUE[employer] [address] TCM Nurse 07/10/25 08/09/25 documented as of this encounter
--- OUTSIDE RECORDS SUMMARY | 2025-08-17 13:43 | XMS_ITS | Encounter Summary ---
Author Organization [email or web address] ([place], [place], [place]) Address [address] [place] [address] Care Team Providers Care Manager Law Name Role Phone Taina Lyles ADRI Primary Care Provider [phone] Encounter Details Date Type Department Care Team (Late st Contact Info) Description 07/01/2021 Transcribed Document [facility] Family Medicine [address] [place] [address] ProviderWilliam MD [address] [place], [place] [address] Social History Tobacco Use Types Packs/Day Years [...] : 3 - Urgent Tracking Group : [facility] LANG WOOD RN [...] Problems(Active) ADD (attention deficit disorder) (SNOMED CT :4985541851 ) Name of Problem: ADD (attention deficit disorder) ; Recorder: AZALEA ALBRIGHT RN; Confirmation: Confirmed ; Classification: Patient Stated ; Code: [id number] ; Contributor System: Kabanchik ; Last Updated: 01/11/2017 14:23 EST ; Life Cycle Date: 01/11/2017 ; Life Cycle Status: Active ; Vocabulary: SNOMED CT Anxiety (SNOMED CT :6009675542 ) Name of Problem: Anxiety ; Recorder: AZALEA ALBRIGHT RN; Confirmation: Confirmed ; Classification: Patient Stated ; Code: 5836080103 ; Contributor System: PowerChart ; Last Updated: 01/11/2017 14:22 EST ; Life Cycle Date: 01/11/2017 ; Life Cycle Status: Active ; Vocabulary: SNOMED CT Arthritis (SNOMED CT :9480766 ) Name of Problem: Arthritis ; Recorder: LANNY BELLO RN; Confirmation: Confirmed ; Classification: Medical ; Code: 6032823 ; Contributor System: Kabanchik ; Last Updated: 09/11/2015 14:10 EDT ; Life Cycle Date: 09/11/2015 ; Life Cycle Status: Active ; Vocabulary: SNOMED CT bilateral knee pain (SNOMED CT :74723116 ) Name of Problem: bilateral knee pain ; Recorder: LANNY BELLO RN; Confirmation: Confirmed ; Classification: Medical ; Code: 75368641 ; Contributor System: Purchasing PlatformChart ; Last Updated: 08/12/2017 10:18 EDT ; Life Cycle Date: 09/11/2015 ; Life Cycle Status: Active ; Vocabulary: SNOMED CT Chronic depression (SNOMED CT :793112761 ) Name of Problem: Chronic depression ; Recorder: AZALEA ALBRIGHT RN; Confirmation: Confirmed ; Classification: Patient Stated ; Code: 552103673 ; Contributor System: Purchasing PlatformChart ; Last Updated: 01/11/2017 14:23 EST ; Life Cycle Date: 01/11/2017 ; Life Cycle Status: Active ; Vocabulary: SNOMED CT Diabetes (SNOMED CT :826168023 ) Name of Problem: Diabetes ; Recorder: LANNY BELLO RN; Confirmation: Confirmed ; Classification: Medical ; Code: 354401157 ; Contributor System: PowerChart ; Last Updated: 09/11/2015 14:10 EDT ; Life Cycle Date: 09/11/2015 ; Life Cycle Status: Active ; Vocabulary: SNOMED CT GERD (gastroesophageal reflux disease) (SNOMED CT :310332102 ) Name of Problem: GERD (gastroesophageal reflux disease) ; Recorder: LANNY BELLO RN; Confirmation: Confirmed ; Classification: Medical ; Code: 546194635 ; Contributor System: Kabanchik ; Last Updated: 09/11/2015 14:11 EDT ; Life Cycle Date: 09/11/2015 ; Life Cycle Status: Active ; Vocabulary: SNOMED CT H/O syncope (SNOMED CT :9843579438 ) Name of Problem: H/O syncope ; Recorder: AZALEA ALBRIGHT RN; Confirmation: Confirmed ; Classification: Patient Stated ; Code: 8177707022 ; Contributor System: PowerChart ; Last Updated: 01/11/2017 14:29 EST ; Life Cycle Date: 01/11/2017 ; Life Cycle Status: Active ; Vocabulary: SNOMED CT History of recurrent UTIs (SNOMED CT :910038631 ) Name of Problem: History of recurrent UTIs ; Recorder: AZALEA ALBRIGHT RN; Confirmation: Confirmed ; Classification: Patient Stated ; Code: 564164434 ; Contributor System: PowerChart ; Last Updated: 01/11/2017 14:22 EST ; Life Cycle Date: 01/11/2017 ; Life Cycle Status: Active ; Vocabulary: SNOMED CT Hyperlipidemia (SNOMED CT :58357356 ) Name of Problem: Hyperlipidemia ; Recorder: LANNY BELLO RN; Confirmation: Confirmed ; Classification: Medical ; Code: 25107567 ; Contributor System: PowerChart ; Last Updated: 09/11/2015 14:10 EDT ; Life Cycle Date: 09/11/2015 ; Life Cycle Status: Active ; Vocabulary: SNOMED CT Renal insufficiency (SNOMED CT :2164808258 ) Name of Problem: Renal insufficiency ; Recorder: AZALEA ALBRIGHT RN; Confirmation: Confirmed ; Classification: Patient Stated ; Code: 5818615035 ; Contributor System: PowerChart ; Last Updated: 01/11/2017 14:22 EST ; Life Cycle Date: 01/11/2017 ; Life Cycle Status: Active ; Vocabulary: SNOMED CT right carpal tunnel (SNOMED CT :90731170 ) Name of Problem: right carpal tunnel ; Recorder: LANNY BELLO RN; Confirmation: Confirmed ; Classification: Medical ; Code: 55659314 ; Contributor System: PowerChart ; Last Updated: 09/02/2017 10:07 EDT ; Life Cycle Date: 09/11/2015 ; Life Cycle Status: Active ; Vocabulary: SNOMED CT Right tennis elbow (SNOMED CT :5310268961 ) Name of Problem: Right tennis elbow ; Recorder: LANNY BELLO RN; Confirmation: Confirmed ; Classification: Medical ; Code: 5727574187 ; Contributor System: PowerChart ; Last Updated: 05/21/2019 14:33 EDT ; Life Cycle Status: Active ; Vocabulary: SNOMED CT ; Comments: 09/11/2015 14:11 - LANNY BELLO RN recent diagnosis RLS (restless legs syndrome) (SNOMED CT :15574796 ) Name of Problem: RLS (restless legs syndrome) ; Recorder: LANNY BELLO RN; Confirmation: Confirmed ; Classification: Medical ; Code: 61012843 ; Contributor System: Kabanchik ; Last Updated: 09/11/2015 14:33 EDT ; Life Cycle Date: 09/11/2015 ; Life Cycle Status: Active ; Vocabulary: SNOMED CT sleep apnea with Cpap (SNOMED CT :262837570 ) Name of Problem: sleep apnea with Cpap ; Recorder: LANNY BELLO RN; Confirmation: Confirmed ; Classification: Medical ; Code: 909602052 ; Contributor System: Kabanchik ; Last Updated: 08/12/2017 11:32 EDT ; Life Cycle Date: 09/11/2015 ; Life Cycle Status: Active ; Vocabulary: SNOMED CT Stress incontinence (SNOMED CT :267523348 ) Name of Problem: Stress incontinence ; Recorder: LANNY BELLO RN; Confirmation: Confirmed ; Classification: Medical ; Code: 947744096 ; Contributor System: Kabanchik ; Last Updated: 09/11/2015 14:12 EDT ; Life Cycle Date: 09/11/2015 ; Life Cycle Status: Active ; Vocabulary: SNOMED CT Diagnoses(Active) Medical screening exam Date: 07/01/2021 ; Diagnosis Type: Reason For Visit ; Confirmation: Complaint of ; Clinical Dx: Medical screening exam ; Classification: Medical ; Clinical Service: Emergency medicine ; Code: PNED ; Probability: 0 ; Diagnosis Code: [id number] ED Height and Weight Height Source : Stated Height Entry Format : Copen Height, Feet : 5 ft(Converted to: 152 cm, 60 Inch) Height, Inches : 6 Inch(Converted to: 0 ft 6 Inch, 15.24 cm) Clinical Height : 167.64 cm Weight Source, ED : Standing scale Weight Entry Format : Copen Weight, Pounds : 203 lb Clinical Dosing Weight : 92.27 kg Body Surface Area (BSA) : 2.01 m2 Body Mass Index : 32.8 kg/m2 (HI) Pep Body Weight (IBW) : 58.88 kg LANG WOOD RN - 07/01/2021 12:30 EDT documented in this encounter Plan of Treatment Not on file documented as of this encounter Visit Diagnoses Not on filedocumented in this encounter Care Teams Manager Law Relationship Specialty Start Date End Date Taina Lyles, ADRI [address] [place] [address] PCP - General Nurse Practitioner 06/15/23 documented as of this encounter
--- OUTSIDE RECORDS SUMMARY | 2025-08-17 13:43 | XMS_ITS | Encounter Summary ---
Author Organization [employer] ([place], [place], [place], [place]) Address [address] [place] [address] Care Team Providers Care Turf And Grounds Supervisor Name Role Phone Taina Lyles LOGISTICS VICE PRESIDENT Primary Care Provider [phone] Encounter Details Date Type Department Care Team (Late st Contact Info) Description 07/01/2021 Transcribed Document [facility] [place] [address] [place] [address] ProviderWilliam MD [address] [place] [place], [place] [address] Social History Tobacco Use Types Packs/Day Years [...] Communication Barrier : None Primary Language : Kittitian Any Spiritual/Cultural Needs or Requests : No [...] on filedocumented in this encounter Care Teams Turf And Grounds Supervisor Relationship Specialty Start Date End Date Taina Lyles, LOGISTICS VICE PRESIDENT [address] [place] [address] PCP - General Nurse Practitioner 06/15/23 documented as of this encounter
--- OUTSIDE RECORDS SUMMARY | 2025-08-17 13:43 | XMS_ITS | Encounter Summary ---
Author Organization Healthcare Address [address] [place] [address] Care Team Providers Care Turbogenerator Operator Name Role Phone Wilma Howard Ambar ROUSEN Primary Care Provider [phone] Lea Fernando Unavailable [phone] Rachel Ray CARE TRANSITIONS NURSE Unavailable [phone] Taina Lyles CARE TRANSITIONS NURSE Primary Care Provider [phone] Monique Tapia LPN Unavailable Unavailable Alvarez Zimmer MD Primary Care Provider [phone] Shaniqua Trevino DIGESTION OPERATOR Unavailable Unavailable Tamera Isabel DIGESTION OPERATOR Unavailable UnavailAlina Bedolla RN Unavailable Unavailab Monique Che LPN Unavailable Unavailable Encounter Details Date Type Department Care Team (Late st Contact Info) Description 01/18/2024 Orders Only External Location [address] [place] [address] Provider, External Social History Tobacco Use Types [...] Description 08/20/2025 9:30 AM EDT Clinical Support [facility] [place] [address] [place] [address] 08/20/2025 10:30 AM EDT Social Work [facility] [place] [address] [facility] [place] [address] [place] [address] 08/20/2025 11:00 AM EDT Office Visit [facility] [place] [address] [place] [address] Jude Duque MD [address] [facility] [address] [place] [address] 08/22/2025 11:15 AM EDT Appointment [facility] Inter[facility] Radiology [address] [place] [address] 08/22/2025 12:15 PM EDT Appointment [facility] Interventional Radiology [address] [place] [address] 08/26/2025 1:00 PM EDT Office Visit [facility] Endocrinology [address] [place] [address] Miranda Hobson P, CARE TRANSITIONS NURSE [address] [place] [address] 08/29/2025 10:00 AM EDT Appointment [facility] Inter[facility] Radiology [address] [place] [address] 08/29/2025 11:00 AM EDT Appointment [facility] [address] [place] [address] 09/05/2025 10:00 AM EDT Appointment [facility] [address] [place] [address] 09/05/2025 11:00 AM EDT Appointment [facility] Inter[facility] Radiology [address] [place] [address] documented as of this encounter Procedures Procedure [...] documented as of this encounter Care Teams Turbogenerator Operator Relationship Specialty Start Date End Date Wilma Howard APRN [address] [place] [address] [place] [address] PCP - General 04/03/21 09/30/24 Taina Lyles APRN [address] [place] [address] [place] [address] PCP - General 10/01/24 12/06/24 Alvarez Zimmer MD [facility] [address] [place] [address] PCP - General Family Medicine 12/07/24 Lea Fernando [address] [place] [address] Seafood Specialist Endocrinology 08/29/24 Rachel Ray APRN [address] [place] [address] Nurse Practitioner Gastroenterology 09/24/24 Monique Tapia LPN VALUE-[employer]ED [place] [address] TCM Nurse 11/28/24 12/28/24 Shaniqua Trevino LPN TCM Nurse 01/15/25 02/14/25 Tamera Isabel LPN VALUE-BASED TRANSFORMATION PROGRAM Licensed Practical Nurse 05/29/25 Alina Lovett, RN CH-VASCULAR & INTERVENTIONAL RADIOLOGY Registered Nurse 06/26/25 06/26/25 Monique Tapia LPN VALUE-[place] [address] TCM Nurse 07/10/25 08/09/25 documented as of this encounter
--- OUTSIDE RECORDS SUMMARY | 2025-08-17 13:43 | XMS_ITS | Encounter Summary ---
Author Organization [email or web address] ([place], [place], [place], [place]) Address [address] [place] [address] Care Team Providers Care Pecan Huller Name Role Phone Taina Lyles ADRI Primary Care Provider [phone] Encounter Details Date Type Department Care Team (Late st Contact Info) Description 09/09/2020 Transcribed Document [facility] [place] [address] [place] [address] ProviderWilliam MD [address] [place] [address] Social History Tobacco Use Types Packs/Day Years [...] On: 09/09/2020 15:09 EDT by KEITH TAVERA dispatch supervisor Process Patient Disposition : Discharge Personal Belongings [...] on filedocumented in this encounter Care Teams Pecan Huller Relationship Specialty Start Date End Date Taina Lyles, ADRI [address] [place] [address] PCP - General Nurse Practitioner 06/15/23 documented as of this encounter
--- OUTSIDE RECORDS SUMMARY | 2025-08-17 13:43 | XMS_ITS | Encounter Summary ---
Author Organization [employer] ([place], [place], [place], [place]) Address [address] [place] [address] Care Team Providers Care Supervisor Airplane Flight Attendant Name Role Phone Taina Lyles ADRI Primary Care Provider [phone] Encounter Details Date Type Department Care Team (Late st Contact Info) Description 09/08/2020 Transcribed Document [facility] [place] [address] [place] [address] ProviderWilliam MD [address] [place] [address] Social History Tobacco Use Types [...] 09/08/2020 16:21:00 EDT morphine,4mg IV Push,Right Antecubit [place] Pain Assessment Pain Assessment : Follow-up assessment Angelina Cuello, PARK - 09/08/2020 17:54 EDT documented in this encounter Plan of Treatment Not on file documented as of this encounter Visit Diagnoses Not on filedocumented in this encounter Care Teams Supervisor Airplane Flight Attendant Relationship Specialty Start Date End Date Taina Lyles, PEWTER FINISHER [address] [place] [address] PCP - General Nurse Practitioner 06/15/23 documented as of this encounter
--- OUTSIDE RECORDS SUMMARY | 2025-08-17 13:43 | XMS_ITS | Encounter Summary ---
Author Organization Healthcare Address [address] [place] [address] Care Team Providers Care Armature Winder Name Role Phone Wilma Howard Ambar ROUSEN Primary Care Provider [phone] Lea Fernando Unavailable [phone] Rachel Ray NIB INSPECTOR Unavailable [phone] Taina Lyles NIB INSPECTOR Primary Care Provider [phone] Monique Tapia LPN Unavailable Unavailable Alvarez Zimmer MD Primary Care Provider [phone] Shaniqua Trevino HEMSTITCHING MACHINE OPERATOR Unavailable Unavailable Tamera Isabel HEMSTITCHING MACHINE OPERATOR Unavailable UnavailAlina Bedolla RN Unavailable Unavailab Monique Che LPN Unavailable Unavailable Encounter Details Date Type Department Care Team (Late st Contact Info) Description 02/08/2024 Orders Only External Location [address] [place] [address] Provider, External Social History Tobacco Use Types [...] Support [facility] [place] [address] [place] [address] 08/20/2025 10:[address] [facility] [place] [address] [facility] [place] [address] [place] [address] 08/20/2025 11:00 AM EDT Office Visit [facility] [place] [address] [place] [address] Jude Duque MD [address] [facility] [address] [place] [address] 08/22/2025 11:15 AM EDT Appointment [facility] Inter[facility] [address] [place] [address] 08/22/2025 12:15 PM EDT Appointment [facility] [address] [place] [address] 08/26/2025 1:00 PM EDT Office Visit [facility] Endocrinology [address] [place] [address] Miranda Hobson P, NIB INSPECTOR [address] [place] [address] 08/29/2025 10:00 AM EDT Appointment [facility] [address] [place] [address] 08/29/2025 11:00 AM EDT Appointment [facility] [address] [place] [address] 09/05/2025 10:00 AM EDT Appointment [facility] [address] [place] [address] 09/05/2025 11:00 AM EDT Appointment [facility] [address] [place] [address] documented as of this encounter Procedures Procedure [...] documented as of this encounter Care Teams Armature Winder Relationship Specialty Start Date End Date Wilma Howard APRN [address] [place] [address] [place] [address] PCP - General 04/03/21 09/30/24 Taina Lyles APRN [address] [place] [address] [place] [address] PCP - General 10/01/24 12/06/24 Alvarez Zimmer MD [facility] [place] [address] PCP - General Family Medicine 12/07/24 Lea Fernando [address] [place] [address] [facility] Endocrinology 08/29/24 Rachel Ray, ADRI [address] [place] [address] Nurse Practitioner Gastroenterology 09/24/24 Monique Tapia LPN VALUE-BASED TR[place] [address] TCM Nurse 11/28/24 12/28/24 Shaniqua Trevino LPN TCM Nurse 01/15/25 02/14/25 Tamera Isabel LPN VALUE-BASED TRANSFORMATION PROGRAM Licensed Practical Nurse 05/29/25 Alina Lovett, RN [facility]-VASCULAR & INTERVENTIONAL RADIOLOGY Registered Nurse 06/26/25 06/26/25 Monique Tapia LPN VALUE-BASED [place] [address] TCM Nurse 07/10/25 08/09/25 documented as of this encounter
--- OUTSIDE RECORDS SUMMARY | 2025-08-17 13:43 | XMS_ITS | Encounter Summary ---
Author Organization [employer] ([place], [place], [place], [place]) Address [address] [place] [address] Care Team Providers Care Curriculum Assistant Principal Name Role Phone Taina Lyles ADRI Primary Care Provider [phone] Encounter Details Date Type Department Care Team (Late st Contact Info) Description 09/08/2020 Transcribed Document [facility] [place] Family Medicine [address] [place] [address] ProviderWilliam MD [address] [place], [place] [id number] Social History Tobacco Use Types Packs/Day Years [...] On: 09/08/2020 15:26 EDT by RUSTY HART PAD MACHINE FEEDER Triage Across the Room Chief Complaint : Pt reports Discomfront in chest that began yesterday states tingling in left arm Triage Date/Time : 09/08/2020 15:26 EDT RUSTY HART RN - 09/08/2020 15:26 EDT DCP GENERIC CODE Tracking Acuity : 2 - Emergent Tracking Group : [facility] ED [place] RUSTY HART RN - 09/08/2020 [...] Problems(Active) ADD (attention deficit disorder) (SNOMED CT :0841195782 ) Name of Problem: ADD (attention deficit disorder) ; Recorder: AZALEA ALBRIGHT RN; Confirmation: Confirmed ; Classification: Patient Stated ; Code: 1853424706 ; Contributor System: [employer] ; Last Updated: 01/11/2017 14:23 EST ; Life Cycle Date: 01/11/2017 ; Life Cycle Status: Active ; Vocabulary: SNOMED CT Anxiety (SNOMED CT :9071999819 ) Name of Problem: Anxiety ; Recorder: AZALEA ALBRIGHT RN; Confirmation: Confirmed ; Classification: Patient Stated ; Code: 1763955563 ; Contributor System: [employer] ; Last Updated: 01/11/2017 14:22 EST ; Life Cycle Date: 01/11/2017 ; Life Cycle Status: Active ; Vocabulary: SNOMED CT Arthritis (SNOMED CT :2757299 ) Name of Problem: Arthritis ; Recorder: LANNY BELLO RN; Confirmation: Confirmed ; Classification: Medical ; Code: 4066742 ; Contributor System: [employer] ; Last Updated: 09/11/2015 14:10 EDT ; Life Cycle Date: 09/11/2015 ; Life Cycle Status: Active ; Vocabulary: SNOMED CT bilateral knee pain (SNOMED CT :29569416 ) Name of Problem: bilateral knee pain ; Recorder: LANNY BELLO RN; Confirmation: Confirmed ; Classification: Medical ; Code: 90705506 ; Contributor System: [employer] ; Last Updated: 08/12/2017 10:18 EDT ; Life Cycle Date: 09/11/2015 ; Life Cycle Status: Active ; Vocabulary: SNOMED CT Chronic depression (SNOMED CT :773405852 ) Name of Problem: Chronic depression ; Recorder: AZALEA ALBRIGHT RN; Confirmation: Confirmed ; Classification: Patient Stated ; Code: 157553337 ; Contributor System: [employer] ; Last Updated: 01/11/2017 14:23 EST ; Life Cycle Date: 01/11/2017 ; Life Cycle Status: Active ; Vocabulary: SNOMED CT Diabetes (SNOMED CT :245830783 ) Name of Problem: Diabetes ; Recorder: LANNY BELLO RN; Confirmation: Confirmed ; Classification: Medical ; Code: 539677979 ; Contributor System: [employer] ; Last Updated: 09/11/2015 14:10 EDT ; Life Cycle Date: 09/11/2015 ; Life Cycle Status: Active ; Vocabulary: SNOMED CT GERD (gastroesophageal reflux disease) (SNOMED CT :560076246 ) Name of Problem: GERD (gastroesophageal reflux disease) ; Recorder: LANNY BELLO RN; Confirmation: Confirmed ; Classification: Medical ; Code: 335605103 ; Contributor System: [employer] ; Last Updated: 09/11/2015 14:11 EDT ; Life Cycle Date: 09/11/2015 ; Life Cycle Status: Active ; Vocabulary: SNOMED CT H/O syncope (SNOMED CT :3004408689 ) Name of Problem: H/O syncope ; Recorder: AZALEA ALBRIGHT RN; Confirmation: Confirmed ; Classification: Patient Stated ; Code: 0233545118 ; Contributor System: Power[employer] ; Last Updated: 01/11/2017 14:29 EST ; Life Cycle Date: 01/11/2017 ; Life Cycle Status: Active ; Vocabulary: SNOMED CT History of recurrent UTIs (SNOMED CT :348913286 ) Name of Problem: History of recurrent UTIs ; Recorder: AZALEA ALBRIGHT RN; Confirmation: Confirmed ; Classification: Patient Stated ; Code: 472784718 ; Contributor System: Power[employer] ; Last Updated: 01/11/2017 14:22 EST ; Life Cycle Date: 01/11/2017 ; Life Cycle Status: Active ; Vocabulary: SNOMED CT Hyperlipidemia (SNOMED CT :71679523 ) Name of Problem: Hyperlipidemia ; Recorder: LANNY BELLO RN; Confirmation: Confirmed ; Classification: Medical ; Code: 92967327 ; Contributor System: [employer] ; Last Updated: 09/11/2015 14:10 EDT ; Life Cycle Date: 09/11/2015 ; Life Cycle Status: Active ; Vocabulary: SNOMED CT Renal insufficiency (SNOMED CT :5060647278 ) Name of Problem: Renal insufficiency ; Recorder: AZALEA ALBRIGHT RN; Confirmation: Confirmed ; Classification: Patient Stated ; Code: 5245419607 ; Contributor System: Power[employer] ; Last Updated: 01/11/2017 14:22 EST ; Life Cycle Date: 01/11/2017 ; Life Cycle Status: Active ; Vocabulary: SNOMED CT right carpal tunnel (SNOMED CT :14746285 ) Name of Problem: right carpal tunnel ; Recorder: LANNY BELLO RN; Confirmation: Confirmed ; Classification: Medical ; Code: 78029060 ; Contributor System: PowerChart ; Last Updated: 09/02/2017 10:07 EDT ; Life Cycle Date: 09/11/2015 ; Life Cycle Status: Active ; Vocabulary: SNOMED CT Right tennis elbow (SNOMED CT :1297984272 ) Name of Problem: Right tennis elbow ; Recorder: LANNY BELLO RN; Confirmation: Confirmed ; Classification: Medical ; Code: 6193012707 ; Contributor System: PowerChart ; Last Updated: 05/21/2019 14:33 EDT ; Life Cycle Status: Active ; Vocabulary: SNOMED CT ; Comments: 09/11/2015 14:11 - LANNY BELLO RN recent diagnosis RLS (restless legs syndrome) (SNOMED CT :74384514 ) Name of Problem: RLS (restless legs syndrome) ; Recorder: LANNY BELLO RN; Confirmation: Confirmed ; Classification: Medical ; Code: 70583040 ; Contributor System: PowerChart ; Last Updated: 09/11/2015 14:33 EDT ; Life Cycle Date: 09/11/2015 ; Life Cycle Status: Active ; Vocabulary: SNOMED CT sleep apnea with Cpap (SNOMED CT :944723926 ) Name of Problem: sleep apnea with Cpap ; Recorder: LANNY BELLO RN; Confirmation: Confirmed ; Classification: Medical ; Code: 682345902 ; Contributor System: [employer] ; Last Updated: 08/12/2017 11:32 EDT ; Life Cycle Date: 09/11/2015 ; Life Cycle Status: Active ; Vocabulary: SNOMED CT Stress incontinence (SNOMED CT :631721176 ) Name of Problem: Stress incontinence ; Recorder: LANNY BELLO RN; Confirmation: Confirmed ; Classification: Medical ; Code: 953047071 ; Contributor System: PowerChart ; Last Updated: 09/11/2015 14:12 EDT ; Life Cycle Date: 09/11/2015 ; Life Cycle Status: Active ; Vocabulary: SNOMED CT Diagnoses(Active) Chest pain Date: 09/08/2020 ; Diagnosis Type: Reason For Visit ; Confirmation: Complaint of ; Clinical Dx: Chest pain ; Classification: Medical ; Clinical Service: Emergency medicine ; Code: PNED ; Probability: 0 ; Diagnosis Code: [id number] ED Height and Weight Height Source : Estimated Height Entry Format : [place] Height, Feet : 5 ft(Converted to: 152 cm, 60 Inch) Height, Inches : 5 Inch(Converted to: 0 ft 5 Inch, 12.70 cm) Clinical Height : 165.1 cm Weight Source, ED : Critical estimated dosing weight Weight Entry Format : [place] Weight, Pounds : 190 lb Clinical Dosing Weight : 86.36 kg Body Surface Area (BSA) : 1.94 m2 Body Mass Index : 31.7 kg/m2 (HI) [place] Body Weight (IBW) : 56.59 kg RUSTY HART, RN - 09/08/2020 15:26 EDT documented in this encounter Plan of Treatment Not on file documented as of this encounter Visit Diagnoses Not on filedocumented in this encounter Care Teams Curriculum Assistant Principal Relationship Specialty Start Date End Date Taina Lyles, PIPE AND TEST SUPERVISOR [address] [place] [address] PCP - General Nurse Practitioner 06/15/23 documented as of this encounter
--- OUTSIDE RECORDS SUMMARY | 2025-08-17 13:43 | XMS_ITS | Encounter Summary ---
Author Organization [employer] ([place], [place], [place], [place]) Address [address] [facility] [place] [address] Care Team Providers Care Business System Consultant Name Role Phone Taina Lyles ADRI Primary Care Provider [phone] Encounter Details Date Type Department Care Team (Late st Contact Info) Description 07/01/2021 Transcribed Document [facility] [place] [address] [place] [address] ProviderWilliam MD [address] [place], [place] [address] Social History Tobacco Use Types Packs/Day Years [...] Reyes MD - 07/01/2021 12:13 PM CDT Camp Suicide Severity Rating Scale (C-SSRS) Entered On: 07/01/2021 17:31 EDT Performed On: 07/01/2021 17:31 EDT by Medina Lai RN Camp Suicide Severity Rating Scale (C-SSRS) CSSRS Past [...] on filedocumented in this encounter Care Teams Business System Consultant Relationship Specialty Start Date End Date Taina Lyles, SENIOR PRODUCT ENGINEER [address] [place] [address] PCP - General Nurse Practitioner 06/15/23 documented as of this encounter
--- OUTSIDE RECORDS SUMMARY | 2025-08-17 13:43 | XMS_ITS | Encounter Summary ---
Author Organization Healthcare Address [address] [place] [address] Care Team Providers Care Mail Officer Name Role Phone Lea Fernando Unavailable [phone] Rachel Ray COAL PULVERIZING OPERATOR Unavailable [phone] Alvarez Zimmer MD Primary Care Provider [phone] Tamera Isabel LPN Unavailable Unavailabl Alina Jennings RN Unavailable Unavailab le Encounter Details Date Type Department Care Team (Late st Contact Info) Description 06/23/2025 Orders Only External Location [address] [place] [address] Kandice Maldonado, COAL PULVERIZING OPERATOR [address] [place] [address] Social History Tobacco Use Types [...] o r organizations such as worship groups, [employer], [employer] or athletic groups, or school groups? Patient [...] week 05/29/2025 How often do you attend [facility] ch or scientologist services? Never 05/29/2025 Do you belong to any clubs o r organizations such as worship groups, unions, [employer] or athletic groups, or school groups? No [...] drink first t kennedy in the morning (EYE-HELMET HAT SWEATBAND PUNCHER) to steady your nerves or to get rid of a hangover? 0 06/25/2025 CAGE Questionnaire Score 0 025 Utilities Answer Date Recorded In the past 12 months has th [employer] electric, gas, oil, or water company threatened [...] Clinical Support [facility] [place] [address] [facility] [address] [place] [address] 08/20/2025 10:30 AM EDT Social Work [facility] [place] [address] [facility] [address] [place] [address] [place] [address] 08/20/2025 11:00 AM EDT Office Visit [facility] [place] [address] [facility] [address] [place] [address] Jude Duque MD [address] [facility] [address] [place] [address] 08/22/2025 11:15 AM EDT Appointment [facility] Interventional Radiology [address] [place] [address] 08/22/2025 12:15 PM EDT Appointment [facility] Interventional Radiology [address] [place] [address] 08/26/2025 1:00 PM EDT Office Visit [facility] [address] [place] [address] Miranda Hobson P, COAL PULVERIZING OPERATOR [address] [place] [address] 08/29/2025 10:00 AM EDT Appointment [facility] Inter[facility] Radiology [address] [place] [address] 08/29/2025 11:00 AM EDT Appointment [facility] Inter[facility] Radiology [address] [place] [address] 09/05/2025 10:00 AM EDT Appointment [facility] Inter[facility] Radiology [address] [place] [address] 09/05/2025 11:00 AM EDT Appointment [facility] Interventional Radiology [address] [place] [address] documented as of this encounter Procedures Procedure Name Priority Date/Time Associated Diagnosis Comments CT MSK OUTSIDE IMAGES 06/23/2025 6:38 PM EDT documented in this encounter Results * CT MSK OUTSIDE IMAGES (06/23/2025 6:38 PM EDT) Anatomical Region Laterality Modality Computed Tomogra phy 06/23/2025 6:38 PM EDT Kandice Maldonado APRN IMG CT PROCEDURES Final Res ult documented [...] documented as of this encounter Care Teams Mail Officer Relationship Specialty Start Date End Date Alvarez Zimmer MD [address] [place] [address] PCP - General Family Medicine 12/07/24 Lea Fernando [address] [place] [address] Salesperson Used Cars Endocrinology 08/29/24 Rachel Ray APRN [address] [facility] [address] [place] [address] Nurse Practitioner Gastroenterology 09/24/24 Tamera Isabel LPN VALUE-BASED TRANSFORMATION PROGRAM Licensed Practical Nurse 05/29/25 Alina Lovett, RN [facility]-VASCULAR & INTERVENTIONAL RADIOLOGY Registered Nurse 06/26/25 06/26/25 documented as of this encounter
--- OUTSIDE RECORDS SUMMARY | 2025-08-17 13:43 | XMS_ITS | Encounter Summary ---
Author Organization [employer] ([place], [place], [place], [place]) Address [address] [place] [address] Care Team Providers Care Scrap Metal Collector Name Role Phone Taina Lyles ADRI Primary Care Provider [phone] Encounter Details Date Type Department Care Team (Late st Contact Info) Description 05/01/2019 Transcribed Document [facility] [place] [address] [place] [address] ProviderWilliam MD [address] [place] [address] Social History Tobacco Use Types Packs/Day Years [...] moderate sleepiness and scores 16/24 in the Beatty Sleepiness Scale. She does have insomnia for which she is using trazodone with good benefit. OTHER MEDICAL PROBLEMS: Include diabetes mellitus, obesity, and depression. MEDICATIONS: 1. Azelastine. 2. Magnesium. 3. Bupropion. 4. Venlafaxine. 5. Multivitamin. 6. Ranitidine. 7. Carvedilol. 8. Oxybutynin. 9. Plaquenil. 10. Humulin R. 11. Baclofen. 12. [place]. 13. Prednisone. 14. Atorvastatin. 15. Humulin. 16. [...] Dr. Wilma Howard Electronically signed by Luigi [facility] Conversion Trekking Guide Cerner at 03/07/2023 9:43 AM CDT documented in this encounter Plan of Treatment Not on file documented as of this encounter Visit Diagnoses Not on filedocumented in this encounter Care Teams Scrap Metal Collector Relationship Specialty Start Date End Date Taina yLles, OPERATIONS ACCOUNTANT [address] [place] [address] PCP - General Nurse Practitioner 06/15/23 documented as of this encounter
--- OUTSIDE RECORDS SUMMARY | 2025-08-17 13:43 | XMS_ITS | Encounter Summary ---
Author Organization Healthcare Address [address] [place] [address] Care Team Providers Care Crowning Inspector Name Role Phone Wilma Howard Ambar ROUSEN Primary Care Provider [phone] Lea Fernando Unavailable [phone] Rachel Ray INSTRUMENTATION TECH Unavailable [phone] Taina Lyles INSTRUMENTATION TECH Primary Care Provider Monique Tapia LPN Unavailable Unavailable Alvarez Zimmer MD Primary Care Provider [phone] Shaniqua Trevino WINDOW DRAPER Unavailable Unavailable Tamera Isabel WINDOW DRAPER Unavailable UnavailAlina Bedolla RN Unavailable Unavailab Monique Che LPN Unavailable Unavailable Encounter Details Date Type Department Care Team (Late st Contact Info) Description 12/15/2023 Orders Only External Location [address] [place] [address] Provider, External Social History Tobacco Use Types [...] EDT Clinical Support [facility] Trans[facility] [place] [address] [place] [address] 08/20/2025 10:30 AM EDT Social Work [facility] [place] [address] [facility] [place] [address] [place] [address] 08/20/2025 11:00 AM EDT Office Visit [facility] [place] [address] [place] [address] Jude Duque MD [address] [facility] [address] [place] [address] 08/22/2025 11:15 AM EDT Appointment [facility] Interventional Radiology [address] [place] [address] 08/22/2025 12:15 PM EDT Appointment [facility] Inter[facility] Radiology [address] [place] [address] 08/26/2025 1:00 PM EDT Office Visit [facility] Endocrinology [address] [place] [address] Miranda Hobson P, INSTRUMENTATION TECH [address] [place] [address] 08/29/2025 10:00 AM EDT Appointment [facility] Inter[facility] Radiology [address] [place] [address] 08/29/2025 11:00 AM EDT Appointment [facility] Inter[facility] [address] [place] [address] 09/05/2025 10:00 AM EDT Appointment [facility] Inter[facility] Radiology [address] [place] [address] 09/05/2025 11:00 AM EDT Appointment [facility] Interventional Radiology [address] [place] [address] documented as of this encounter Procedures Procedure [...] documented as of this encounter Care Teams Crowning Inspector Relationship Specialty Start Date End Date Wilma Howard APRN [address] [place] [address] [place] [address] PCP - General 04/03/21 09/30/24 Taina Lyles APRN [address] [place] [address] [place] [address] PCP - General 10/01/24 12/06/24 Alvarez Zimmer MD [facility] [address] [place] [address] PCP - General Family Medicine 12/07/24 Lea Fernando [address] [place] [address] Hand Pattern Marker Endocrinology 08/29/24 Rachel Ray APRN [address] [place] [address] Nurse Practitioner Gastroenterology 09/24/24 Monique Tapia LPN VALUE-BASED [place] [address] TCM Nurse 11/28/24 12/28/24 Sahniqua Trevino LPN TCM Nurse 01/15/25 02/14/25 Tamera Isabel LPN VALUE-BASED TRANSFORMATION PROGRAM Licensed Practical Nurse 05/29/25 Alina Lovett, RN [facility]-VASCULAR & INTERVENTIONAL RADIOLOGY Registered Nurse 06/26/25 06/26/25 Monique Tapia LPN VALUE-BASED [place] [address] TCM Nurse 07/10/25 08/09/25 documented as of this encounter
--- OUTSIDE RECORDS SUMMARY | 2025-08-17 13:43 | XMS_ITS | Encounter Summary ---
Author Organization [employer] ([place], [place], [place], [place]) Address [address] [place] [address] Care Team Providers Care Card Maker Name Role Phone Taina Lyles SHEETING PULLER Primary Care Provider [phone] Encounter Details Date Type Department Care Team (Late st Contact Info) Description 09/08/2020 Transcribed Document [facility] [place] [address] [place] [address] ProviderWilliam MD [address] [place], [place] [address] Social History Tobacco Use Types Packs/Day Years [...] Tab, Oral, QAM, 30 Tab, 0 Refill(s) [place] 7.5 mg-325 mg oral tablet: 1 Tab, [...] list: All Problems Anxiety / SNOMED CT 7987787767 / Confirmed Arthritis / SNOMED CT 0256541 / Confirmed ADD (attention deficit disorder) / SNOMED CT 6199736107 / Confirmed right carpal tunnel / SNOMED CT 79890938 / Confirmed Chronic depression / SNOMED CT 941239268 / Confirmed Diabetes / SNOMED CT 413058202 / Confirmed GERD (gastroesophageal reflux disease) / SNOMED CT 975098674 / Confirmed Stress incontinence / SNOMED CT 533913398 / Confirmed History of recurrent UTIs / SNOMED CT 947996460 / Confirmed H/O syncope / SNOMED CT 9537110575 / Confirmed Hyperlipidemia / SNOMED CT 80254948 / Confirmed bilateral knee pain / SNOMED CT 41074566 / Confirmed Right tennis elbow / SNOMED CT 2712538349 / Confirmed recent diagnosis Renal insufficiency / SNOMED CT 8949751945 / Confirmed RLS (restless legs syndrome) / SNOMED CT 33448955 / Confirmed sleep apnea with Cpap / SNOMED CT 781442606 / Confirmed, Active Problems (16) ADD (attention [...] EDT Height Source Estimated Height Entry Format [place] Height/Length, DUTCH (ft) 5 ft Height/Length DUTCH 5 Inch CLINICALHEIGHT 165.1 cm [place] Body Weight 56.59 kg Weight Source, ED Critical estimated dosing weight Weight Entry Format [place] Weight [place] lb 190 lb CLINICALWEIGHT 86.36 kg Body [...] gastroparesis - can defer to OP workup documented in this encounter Plan of Treatment Not on file documented as of this encounter Visit Diagnoses Not on filedocumented in this encounter Care Teams Card Maker Relationship Specialty Start Date End Date Taina Lyles, SHEETING PULLER [address] [place] [address] PCP - General Nurse Practitioner 06/15/23 documented as of this encounter
--- OUTSIDE RECORDS SUMMARY | 2025-08-17 13:43 | XMS_ITS | Encounter Summary ---
Author Organization [employer] ([place], [place], [place], [place]) Address [address] [place] [address] Care Team Providers Care Stretcher And Drier Name Role Phone Taina yLles ADRI Primary Care Provider [phone] Encounter Details Date Type Department Care Team (Late st Contact Info) Description 09/08/2020 Transcribed Document [facility] Family Medicine [address] [place] [address] ProviderWilliam MD [address] [place] [id number] Social History Tobacco Use Types Packs/Day Years [...] Communication Barrier : None Primary Language : Turkish Any Spiritual/Cultural Needs or Requests : No [...] Rhythm : Regular Nail Bed Color : Ravinia Angelina Cuello RN - 09/08/2020 17:54 EDT Electronically signed by Luigi [facility] Conversion Dope House Operator Helper Cerner at 03/07/2023 9:46 AM CDT documented in this encounter Plan of Treatment Not on file documented as of this encounter Visit Diagnoses Not on filedocumented in this encounter Care Teams Stretcher And Drier Relationship Specialty Start Date End Date Taina Lyles, DEICER KIT ASSEMBLER [address] [place] [address] PCP - General Nurse Practitioner 06/15/23 documented as of this encounter
--- OUTSIDE RECORDS SUMMARY | 2025-08-17 13:43 | XMS_ITS | Encounter Summary ---
Author Organization Healthcare Address [address] [place] [address] Care Team Providers Care Ovens Supervisor Name Role Phone Lea Fernando Unavailable [phone] Rachel Ray BREAKFAST ATTENDANT Unavailable [phone] Alvarez Zimmer MD Primary Care Provider [phone] Tamera Isabel PORTAL DEVELOPER Unavailable UnavailAlina Bedolla RN Unavailable Unavailab le Encounter Details Date Type Department Care Team (Late st Contact Info) Description 05/08/2025 Results Follow-Up [facility] [address] [facility] [address] [place] [address] Wilma Arana, RN HOSPITAL LIVER [id number] [address] [place] [address] Social History Tobacco Use Types [...] o r organizations such as pentecostal groups, [employer], [employer] or athletic groups, or school groups? Patient [...] week 05/29/2025 How often do you attend [facility] ch or mormon services? Never 05/29/2025 Do you belong to any clubs o r organizations such as pentecostal groups, unions, [employer] or athletic groups, or school groups? No [...] drink first t kennedy in the morning (EYE-BEAMING INSPECTOR) to steady your nerves or to get rid of a hangover? 0 06/25/2025 CAGE Questionnaire Score 0 025 Utilities Answer Date Recorded In the past 12 months has th [employer], gas, oil, or water company threatened [...] Patient does not drink 06/25/2025 12:50 PM TAMMYT Henny Comer Q3: How often do you have six or more drinks on one occasion? Never 06/25/2025 12:50 PM TAMMYT Henny Comer * Over the past 2 [...] 07/08/2025 8:00 PM EDT Felecia Ruiz * How difficult have these problems made it for you to do your work, take care of things at home, or get along with other people? Answer Date of Assessment Author Somewhat difficult 06/11/2025 10:59 AM EDT Suhail Garcia * How difficult have these problems made it for you to do your work, take care of things at home, or get along with other people? Answer Date of Assessment Author Somewhat difficult 06/11/2025 10:59 AM EDT Suhail Garcia * Question Answer Date of Assessment Author 1. Wish to be (Past 1 Month) No 8:00 PM EDT Felecia Khanna 2. Non-Specific [...] EDT Clinical Support [facility] [address] [place] [address] 08/20/2025 10:30 AM EDT Social Work [facility] [address] [place] [address] [place] [address] 08/20/2025 11:00 AM EDT Office Visit [facility] [address] [place] [address] Jude Duque MD [address] [place] [address] 08/22/2025 11:15 AM EDT Appointment [facility] [address] [place] [address] 08/22/2025 12:15 PM EDT Appointment [facility] [address] [place] [address] 08/26/2025 1:00 PM EDT Office Visit [facility] Endocrinology [address] [place] [address] Miranda Hobson P, BREAKFAST ATTENDANT [address] [place] [address] 08/29/2025 10:00 AM EDT Appointment [facility] [address] [place] [address] 08/29/2025 11:00 AM EDT Appointment [facility] [address] [place] [address] 09/05/2025 10:00 AM EDT Appointment [facility] [address] [place] [address] 09/05/2025 11:00 AM EDT Appointment [facility] [address] [place] [address] documented as of this encounter Visit Diagnoses [...] documented as of this encounter Care Teams Ovens Supervisor Relationship Specialty Start Date End Date Alvarez Zimmer MD [address] [place] [address] PCP - General Family Medicine 12/07/24 Lea Fernando [address] [facility] [address] [place] [address] Chairlift Operator Endocrinology 08/29/24 Rachel Ray, BREAKFAST ATTENDANT [address] [address] Nurse Practitioner Gastroenterology 09/24/24 Tamera Isabel, MG VALUE-BASED TRANSFORMATION PROGRAM Licensed Practical Nurse 05/29/25 Alina Lovett, RN CH-VASCULAR & INTERVENTIONAL RADIOLOGY Registered Nurse 06/26/25 06/26/25 documented as of this encounter
--- OUTSIDE RECORDS SUMMARY | 2025-08-17 13:43 | XMS_ITS | Clinical Summary ---
Author Organization [employer] [facility] [employer] Address [address] [place] [address], [address] [place] [address] Care Team Providers Care Floor Hand Name Role Phone System, Referring Not In [...] (before breakfast) Active Multiple Vitamins-Minera ls (THERAPEUTIC MULTIVITAMIN-SD NERALS) tablet Take 1 tablet by mouth daily Active Jackson-3 Fatty Acids (FISH OIL) 1000 MG CAPS [...] of Treatment Not on file Care Teams Floor Hand Relationship Specialty Start Date End Date System, Referring Not In PCP - General 06/30/16
--- OUTSIDE RECORDS SUMMARY | 2025-08-17 13:43 | XMS_ITS | Encounter Summary ---
Author Organization [employer] ([place], [place], [place], [place]) Address [address] [place] [address] Care Team Providers Care Air Export Operations Agent Name Role Phone Taina Lyles APRN Primary Care Provider Encounter Details Date Type Department Care Team (Late st Contact Info) Description 01/23/2019 Transcribed Document [facility] [place] [facility] [place] [address] ProviderWilliam MD [address] [place] [address] Social History Tobacco Use Types Packs/Day Years Used Date Smoking Tobacco: Never Assessed Comments Unknown Sex and Gender Information Value Date Recorded Sex Assigned at Not on file Legal Sex Female 12:21 PM CDT Gender Identity Not on file Sexual Orientation Not on file documented as of this encounter Miscellaneous Notes * Cerner Conversion Note - William Reyes MD - 01/23/2019 5:18 PM REVERSING MILL ROLLER [address] [address] HISTORY AND PHYSICAL PATIENT IDENTIFICATION: MONIKA ZIMMER (Female - 1960) ACCOUNT / UNIT NUMBER: [id number] / [id number] PRIMARY CARE PHYSICIAN: WILMA HOWARD APRN PATIENT LOCATION: [facility] 300-11 ADMIT DATE / TIME: 01/23/19 1051 DISCHARGE DATE / TIME: DICTATED: 01/23/19 1218 by DANIEL DICKERSON TRANSCRIBED: 01/23/19 1343 by PS IMPORTED: 01/23/19 1344 CC: WILMA HOWARD APRN; DANIEL DICKERSON PA-C; GLENN LAWRENCE\R\ [facility] Original Dictated By: MARIA GUADALUPE Hernandez [...] in bed. She is in observation the [facility] floor under the care of the [...] 0.4 mg sublingual for chest pain. 16. Tekamah 10/325 mg 1-2 tabs q.4 h. as [...] LABORATORIES AND DIAGNOSTICS: Reviewed from 01/08/2019 at [facility] showing a GFR of 57. Normal WBC. [...] rep ct ivnm] Electronically signed by Luigi, [facility] Conversion Towel Hemmer Cerner at 02/21/2023 1:44 PM CDT documented in this encounter Plan of Treatment Not on file documented as of this encounter Visit Diagnoses Not on filedocumented in this encounter Care Teams Air Export Operations Agent Relationship Specialty Start Date End Date Taina Lyles, ADRI [address] [place] [address] PCP - General Nurse Practitioner 06/15/23 documented as of this encounter
--- OUTSIDE RECORDS SUMMARY | 2025-08-17 13:43 | XMS_ITS | Encounter Summary ---
Author Organization Healthcare Address [address] [place] [address] Care Team Providers Care Account Classification Clerk Name Role Phone Wilma Howard Ambar ROUSEN Primary Care Provider [phone] Lea Fernando Unavailable [phone] Rachel Ray LOADER HELPER SORTING YARD Unavailable [phone] Taina Lyles LOADER HELPER SORTING YARD Primary Care Provider [phone] Monique Tapia LPN Unavailable Unavailable Alvarez Zimmer MD Primary Care Provider [phone] Shaniqua Trevino STEAM PIPE FITTER Unavailable Unavailable Tamera Isabel STEAM PIPE FITTER Unavailable UnavailAlina Bedolla RN Unavailable Unavailab Monique Che LPN Unavailable Unavailable Encounter Details Date Type Department Care Team (Late st Contact Info) Description 07/17/2024 Orders Only External Location [address] [place] [address] Provider, External Social History Tobacco Use Types [...] Description 08/20/2025 9:30 AM EDT Clinical Support [facility] [place] [address] [place] [address] 08/20/2025 10:30 AM EDT Social Work [facility] [place] [address] [facility] [place] [address] [place] [address] 08/20/2025 11:00 AM EDT Office Visit [facility] [place] [address] [place] [address] Jude Duque MD [address] [facility] [address] [place] [address] 08/22/2025 11:15 AM EDT Appointment [facility] Inter[facility] Radiology [address] [place] [address] 08/22/2025 12:15 PM EDT Appointment [facility] Radiology [address] [place] [address] 08/26/2025 1:00 PM EDT Office Visit [facility] Endocrinology [address] [place] [address] Miranda Hobson P, LOADER HELPER SORTING YARD [address] [place] [address] 08/29/2025 10:00 AM EDT Appointment [facility] Inter[facility] Radiology [address] [place] [address] 08/29/2025 11:00 AM EDT Appointment [facility] [address] [place] [address] 09/05/2025 10:00 AM EDT Appointment [facility] [address] [place] [address] 09/05/2025 11:00 AM EDT Appointment [facility] [address] [place] [address] documented as of this encounter Procedures Procedure [...] documented as of this encounter Care Teams Account Classification Clerk Relationship Specialty Start Date End Date Wilma Howard APRN [address] [place] [address] [place] [address] PCP - General 04/03/21 09/30/24 Taina Lyles APRN [address] [place] [address] [place] [address] PCP - General 10/01/24 12/06/24 Alvarez Zimmer MD [facility] [place] [address] PCP - General Family Medicine 12/07/24 Lea Fernando [address] [place] [address] Pool Table Operator Endocrinology 08/29/24 Rachel Ray, LOADER HELPER SORTING YARD [address] [place] [address] Nurse Practitioner Gastroenterology 09/24/24 Monique Tapia LPN VALUE-BASED [place] [address] TCM Nurse 11/28/24 12/28/24 Shaniqua Trevino LPN TCM Nurse 01/15/25 02/14/25 Tamera Isabel LPN VALUE-BASED TRANSFORMATION PROGRAM Licensed Practical Nurse 05/29/25 Alina Lovett, RN CH-VASCULAR & INTERVENTIONAL RADIOLOGY Registered Nurse 06/26/25 06/26/25 Monique Tapia LPN VALUE-BASED [place] [address] TCM Nurse 07/10/25 08/09/25 documented as of this encounter
--- OUTSIDE RECORDS SUMMARY | 2025-08-17 13:43 | XMS_ITS | Encounter Summary ---
Author Organization [facility] Address [address] [place] [address] Care Team Providers Care Test Deck Supervisor Name Role Phone Lea Fernando Unavailable [phone] Rachel Ray BROACH TROUBLE SHOOTER Unavailable [phone] Alvarez Zimmer MD Primary Care Provider [phone] Tamera Isabel BINDERY SUPERVISOR Unavailable UnavailAlina Bedolla RN Unavailable Unavailab Monique Che BINDERY SUPERVISOR Unavailable Unavailable Reason for Visit * Reason Onset Date Comments Med Refill 04/19/2025 Encounter Details Date Type Department Care Team (Late st Contact Info) Description 04/19/2025 Refill [facility] [address] [place] [address] Alvarez Zimmer MD [address] [place] [address] Social History Tobacco Use Types [...] attend [facility] or faith services? Patient unable to [...] drink first t kennedy in the morning (EYE-HOMEOWNER ASSOCIATION MANAGER) to steady your nerves or to get rid of a hangover? 0 10/22/2024 CAGE Questionnaire Score 0 024 Utilities Answer Date Recorded In the past 12 months has e [employer], gas, oil, or water [employer] threatened to shut off services in your [...] AM EDT Clinical Support [facility] [place] [address] [place] [address] 08/20/2025 10:30 AM EDT Social Work [facility] [place] [address] [place] [address] [place] [address] 08/20/2025 11:00 AM EDT Office Visit [facility] [address] [place] [address] Jude Duque MD [address] [place] [address] 08/22/2025 11:15 AM EDT Appointment [facility] Inter[facility] Radiology [address] [place] [address] 08/22/2025 12:15 PM EDT Appointment [facility] Inter[facility] Radiology [address] [place] [address] 08/26/2025 1:00 PM EDT Office Visit [facility] Endocrinology [address] [place] [address] Miranda Hobson, BROACH TROUBLE SHOOTER [address] [facility] [address] [place] [address] 08/29/2025 10:00 AM EDT Appointment [facility] [address] [place] [address] 08/29/2025 11:00 AM EDT Appointment [facility] [address] [place] [address] 09/05/2025 10:00 AM EDT Appointment [facility] [address] [place] [address] 09/05/2025 11:00 AM EDT Appointment [facility] [address] [place] [address] documented as of this encounter Visit Diagnoses [...] documented as of this encounter Care Teams Test Deck Supervisor Relationship Specialty Start Date End Date Alvarez Zimmer MD [address] [place] [address] PCP - General Family Medicine 12/07/24 Lea Fernando [address] [facility] [address] [place] [address] Coordinator Skill Training Program Endocrinology 08/29/24 Rachel Rya APRN [address] [facility] [address] [place] [address] Nurse Practitioner Gastroenterology 09/24/24 Tamera Isabel LPN VALUE-BASED TRANSFORMATION PROGRAM Licensed Practical Nurse 05/29/25 Alina Lovett, RN CH-VASCULAR & INTERVENTIONAL RADIOLOGY Registered Nurse 06/26/25 06/26/25 Monique Tapia LPN VALUE-BASED [place] [address] TCM Nurse 07/10/25 08/09/25 documented as of this encounter
--- OUTSIDE RECORDS SUMMARY | 2025-08-17 13:43 | XMS_ITS | Encounter Summary ---
Author Organization [employer] ([place], [place], [place], [place]) Address [address] [place] [address] Care Team Providers Care Linux System Administrator Name Role Phone Taina Lyles ADRI Primary Care Provider [phone] Encounter Details Date Type Department Care Team (Late st Contact Info) Description 09/09/2020 Transcribed Document [facility] [place] Family Medicine [address] [place] [address] ProviderWilliam MD [address] [place], [place] [address] Social History Tobacco Use Types Packs/Day Years [...] On: 09/09/2020 15:08 EDT by KEITH TAVERA, BOARD CERTIFIED ARTS THERAPIST Event Note ED Event Date/Time : 09/09/2020 [...] on filedocumented in this encounter Care Teams Linux System Administrator Relationship Specialty Start Date End Date Taina Lyles, AVICULTURIST [address] [place] [address] PCP - General Nurse Practitioner 06/15/23 documented as of this encounter
--- OUTSIDE RECORDS SUMMARY | 2025-08-17 13:43 | XMS_ITS | Encounter Summary ---
Author Organization [employer] ([place], [place], [place], [place]) Address [address] [place] [address] Care Team Providers Care Band Instrument Repairer Name Role Phone Taina Lyles ADRI Primary Care Provider [phone] Encounter Details Date Type Department Care Team (Late st Contact Info) Description 07/01/2021 Transcribed Document [facility] [place] Family Medicine [address] [place] [address] ProviderWilliam MD [address] [place], [place] [address] Social History Tobacco Use Types Packs/Day Years [...] : Low risk (0) Broset Interventions : [place] precautions for safety used Medina Lai RN - 07/01/2021 17:31 EDT documented in this encounter Plan of Treatment Not on file documented as of this encounter Visit Diagnoses Not on filedocumented in this encounter Care Teams Band Instrument Repairer Relationship Specialty Start Date End Date Taina Lyles, SEARCH ENGINE MARKETING MANAGER [address] [place] [address] PCP - General Nurse Practitioner 06/15/23 documented as of this encounter
--- OUTSIDE RECORDS SUMMARY | 2025-08-17 13:44 | XMS_ITS | Encounter Summary ---
Author Organization Healthcare Address [address] [place] [address] Care Team Providers Care Shell Core And Molding Supervisor Name Role Phone Wilma Howard Ambar ROUSEN Primary Care Provider [phone] Lea Fernando Unavailable [phone] Rachel Ray SENIOR SOFTWARE QUALITY ANALYST Unavailable [phone] Taina Lyles SENIOR SOFTWARE QUALITY ANALYST Primary Care Provider [phone] Monique Tapia LPN Unavailable Unavailable Alvarez Zimmer MD Primary Care Provider [phone] Shaniqua Trevino NUCLEAR RADIATION ENGINEER Unavailable Unavailable Tamera Isabel NUCLEAR RADIATION ENGINEER Unavailable UnavailAlina Bedolla RN Unavailable Unavailab Monique Che LPN Unavailable Unavailable Encounter Details Date Type Department Care Team (Late st Contact Info) Description 05/23/2024 Orders Only External Location [address] [place] [address] Provider, External Social History Tobacco Use Types [...] EDT Clinical Support [facility] [place] [address] [place] [address] 08/20/2025 10:30 [address] [facility] [place] [address] [facility] [place] [address] [place] [address] 08/20/2025 11:00 AM EDT Office Visit [facility] [place] [address] [place] [address] Jude Duque MD [address] [facility] [address] [place] [address] 08/22/2025 11:15 AM EDT Appointment [facility] Inter[facility] Radiology [address] [place] [address] 08/22/2025 12:15 PM EDT Appointment [facility] Inter[facility] Radiology [address] [place] [address] 08/26/2025 1:00 PM EDT Office Visit [facility] Endocrinology [address] [place] [address] Miranda Hobson P, SENIOR SOFTWARE QUALITY ANALYST [address] [place] [address] 08/29/2025 10:00 AM EDT Appointment [facility]iology [address] [place] [address] 08/29/2025 11:00 AM EDT Appointment [facility] [address] [place] [address] 09/05/2025 10:00 AM EDT Appointment [facility] [address] [place] [address] 09/05/2025 11:00 AM EDT Appointment [facility] [address] [place] [address] documented as of this encounter Procedures Procedure [...] documented as of this encounter Care Teams Shell Core And Molding Supervisor Relationship Specialty Start Date End Date Wilma Howard APRN [address] [place] [address] [place] [address] PCP - General 04/03/21 09/30/24 Taina Lyles APRN [address] [place] [address] [place] [address] PCP - General 10/01/24 12/06/24 Alvarez Zimmer MD [address] [place] [address] PCP - General Family Medicine 12/07/24 Lea Fernando [address] [place] [address] Hydraulic Press Operator Endocrinology 08/29/24 Rachel Ray, SENIOR SOFTWARE QUALITY ANALYST [address] [place] [address] Nurse Practitioner Gastroenterology 09/24/24 Monique Tapia LPN VALUE-BASED [place] [address] TCM Nurse 11/28/24 12/28/24 Shaniqua Trevino LPN TCM Nurse 01/15/25 02/14/25 Tamera Isabel LPN VALUE-BASED TRANSFORMATION PROGRAM Licensed Practical Nurse 05/29/25 Alina Lovett, RN CH-VASCULAR & INTERVENTIONAL RADIOLOGY Registered Nurse 06/26/25 06/26/25 Monique Tapia LPN VALUE-BASED [place] [address] TCM Nurse 07/10/25 08/09/25 documented as of this encounter
--- OUTSIDE RECORDS SUMMARY | 2025-08-17 13:44 | XMS_ITS | Encounter Summary ---
Author Organization [facility] Address [address] [place] [address] Care Team Providers Care Crime Scene Photographer Name Role Phone Lea Fernando Unavailable [phone] Rachel Ray FOOD MANAGEMENT AIDE Unavailable [phone] Alvarez Zimmer MD Primary Care Provider [phone] Tamera Isabel ZIGZAG STITCHER Unavailable UnavailAlina Bedolla RN Unavailable Unavailab Monique Che ZIGZAG STITCHER Unavailable Unavailable Reason for Visit * Reason Onset Date Comments Med Refill 03/16/2025 Encounter Details Date Type Department Care Team (Late st Contact Info) Description 03/16/2025 Refill [facility] [address] [place] [address] Alvarez Zimmer MD [address] [place] [address] Social History Tobacco Use Types [...] you attend [facility] or [facility]? Patient unable to [...] Recorded Patient Health Questionnaire-2 Score 0 03/06/2025 [facility] - [...] drink first t kennedy in the morning (EYE-JOURNALIST) to steady your nerves or to get rid of a hangover? 0 10/22/2024 CAGE Questionnaire Score 0 024 Utilities Answer Date Recorded In the past 12 months has e [employer], gas, oil, or water [employer] threatened to shut off services in your [...] EDT Clinical Support [facility] [address] [place] [address] 08/20/2025 10:30 AM EDT Social Work [facility] [address] [place] [address] [place] [address] 08/20/2025 11:00 AM EDT Office Visit [facility] [address] [place] [address] Jude Duque MD [address] [place] [address] 08/22/2025 11:15 AM EDT Appointment [facility] [address] [place] [address] 08/22/2025 12:15 PM EDT Appointment [facility] [address] [place] [address] 08/26/2025 1:00 PM EDT Office Visit [facility] Endocrinology [address] [place] [address] Miranda Hobson P, FOOD MANAGEMENT AIDE [address] [facility] [address] [place] [address] 08/29/2025 10:00 AM EDT Appointment [facility] [address] [place] [address] 08/29/2025 11:00 AM EDT Appointment [facility] [address] [place] [address] 09/05/2025 10:00 AM EDT Appointment [facility] [address] [place] [address] 09/05/2025 11:00 AM EDT Appointment [facility] [address] [place] [address] documented as of this encounter Visit Diagnoses [...] documented as of this encounter Care Teams Crime Scene Photographer Relationship Specialty Start Date End Date [place] [address] PCP - General Family Medicine 12/07/24 Lea Fernando [address] [facility] [address] [place] [address] Auto Job Estimator Endocrinology 08/29/24 Rachel Ray, FOOD MANAGEMENT AIDE [address] [place] [address] Nurse Practitioner Gastroenterology 09/24/24 Tamera Isabel LPN VALUE-BASED TRANSFORMATION PROGRAM Licensed Practical Nurse 05/29/25 Alina Lovett, RN [facility]-VASCULAR & INTERVENTIONAL RADIOLOGY Registered Nurse 06/26/25 06/26/25 Monique Tapia LPN VALUE-BASED [place] [address] TCM Nurse 07/10/25 08/09/25 documented as of this encounter
--- OUTSIDE RECORDS SUMMARY | 2025-08-17 13:44 | XMS_ITS | Encounter Summary ---
Author Organization Healthcare Address [address] [place] [address] Care Team Providers Care Meteorology Professor Name Role Phone Wilma Howard Ambar ROUSEN Primary Care Provider [phone] Lea Fernando Unavailable [phone] Rachel Ray EDITING COMPUTER PUBLISHER Unavailable [phone] Taina Lyles EDITING COMPUTER PUBLISHER Primary Care Provider [phone] Monique Tapia LPN Unavailable Unavailable Alvarez Zimmer MD Primary Care Provider [phone] Shaniqua Trevino CHEMICAL TEST ENGINEER Unavailable Unavailable Tamera Isabel CHEMICAL TEST ENGINEER Unavailable UnavailAlina Bedolla RN Unavailable Unavailab Monique Che LPN Unavailable Unavailable Encounter Details Date Type Department Care Team (Late st Contact Info) Description 02/08/2024 Orders Only External Location [address] [place] [id number] Provider, External Social History Tobacco Use Types [...] 08/20/2025 9:30 AM EDT Clinical Support [facility] [address] [place] [address] 08/20/2025 10:30 AM EDT Social Work [facility] [address] [facility] [place] [address] [place] [address] 08/20/2025 11:00 AM EDT Office Visit [facility] [address] [place] [address] Jude Duque MD [address] [facility] [address] [place] [address] 08/22/2025 11:15 AM EDT Appointment [facility] [address] [place] [address] 08/22/2025 12:15 PM EDT Appointment [facility] [address] [place] [address] 08/26/2025 1:00 PM EDT Office Visit [facility] Endocrinology [address] [place] [address] Miranda Hobson P, EDITING COMPUTER PUBLISHER [address] [place] [address] 08/29/2025 10:00 AM EDT Appointment [facility] [address] [place] [address] 08/29/2025 11:00 AM EDT Appointment [facility] [address] [place] [address] 09/05/2025 10:00 AM EDT Appointment [facility] [address] [place] [address] 09/05/2025 11:00 AM EDT Appointment [facility] [address] [place] [address] documented as of this encounter Procedures Procedure [...] documented as of this encounter Care Teams Meteorology Professor Relationship Specialty Start Date End Date Wilma Howard APRN [address] [place] [address] [place] [address] PCP - General 04/03/21 09/30/24 Taina Lyles APRN [address] [place] [address] [place] [address] PCP - General 10/01/24 12/06/24 Alvarez Zimmer MD [facility]note 2[facility] [place] [address] PCP - General Family Medicine 12/07/24 Lea Fernando [address] [place] [address] Gelatin Dynamite Packing Operator Endocrinology 08/29/24 Rachel Ray, ADRI [address] [place] [address] Nurse Practitioner Gastroenterology 09/24/24 Monique Tapia LPN VALUE-BASED [place] [address] TCM Nurse 11/28/24 12/28/24 Shaniqua Trevino LPN TCM Nurse 01/15/25 02/14/25 Tamera Isabel LPN VALUE-BASED TRANSFORMATION PROGRAM Licensed Practical Nurse 05/29/25 Alina Lovett, RN CH-VASCULAR & INTERVENTIONAL RADIOLOGY Registered Nurse 06/26/25 06/26/25 Monique Tapia LPN VALUE-BASED [place] [address] TCM Nurse 07/10/25 08/09/25 documented as of this encounter
--- OUTSIDE RECORDS SUMMARY | 2025-08-17 13:44 | XMS_ITS | Encounter Summary ---
Author Organization Healthcare Address [address] [place] [address] Care Team Providers Care Lay Out Machine Operator Name Role Phone Wilma Howard Ambar ROUSEN Primary Care Provider [phone] Lea Fernando Unavailable [phone] Rachel Ray MUSHROOM LABORER Unavailable [phone] Taina Lyles MUSHROOM LABORER Primary Care Provider [phone] Monique Tapia LPN Unavailable Unavailable Alvarez Zimmer MD Primary Care Provider [phone] Shaniqua Trevino MERCHANT PATROLLER Unavailable Unavailable Tamera Isabel MERCHANT PATROLLER Unavailable UnavailAlina Bedolla RN Unavailable Unavailab Monique Che LPN Unavailable Unavailable Encounter Details Date Type Department Care Team (Late st Contact Info) Description 04/23/2024 Orders Only External Location [address] [place] [address] Provider, External Social History Tobacco Use Types [...] Clinical Support [facility] [place] [address] [place] [address] 08/20/2025 10:30 AM EDT Social Work [facility] [place] [address] [facility] [place] [address] [place] [address] 08/20/2025 11:00 AM EDT Office Visit [facility] [place] [address] [place] [address] Jude Duque MD [address] [facility] [address] [place] [address] 08/22/2025 11:15 AM EDT Appointment [facility] [address] [place] [address] 08/22/2025 12:15 PM EDT Appointment [facility] [address] [place] [address] 08/26/2025 1:00 PM EDT Office Visit [facility] Endocrinology [address] [place] [address] Miranda Hobson P, MUSHROOM LABORER [address] [place] [address] 08/29/2025 10:00 AM EDT Appointment [facility] [address] [place] [address] 08/29/2025 11:00 AM EDT Appointment [facility] [address] [place] [address] 09/05/2025 10:00 AM EDT Appointment [facility] [address] [place] [address] 09/05/2025 11:00 AM EDT Appointment [facility] [address] [place] [address] documented as of this encounter Procedures Procedure [...] as of this encounter Care Teams Lay Out Machine Operator Relationship Specialty Start Date End Date Wilma Howard APRN [address] [place] [address] [place] [address] PCP - General 04/03/21 09/30/24 Taina Lyles APRN [address] [place] [address] [place] [address] PCP - General 10/01/24 12/06/24 Alvarez Zimmer MD [address] [place] [address] PCP - General Family Medicine 12/07/24 Lea Fernando [address] [place] [address] Compensator Worker Endocrinology 08/29/24 Rachel Ray, ADRI [address] [place] [address] Nurse Practitioner Gastroenterology 09/24/24 Monique Tapia LPN VALUE-BASED [place] [address] TCM Nurse 11/28/24 12/28/24 Shaniqua Trevino LPN TCM Nurse 01/15/25 02/14/25 Tamera Isabel LPN VALUE-BASED TRANSFORMATION PROGRAM Licensed Practical Nurse 05/29/25 Alina Lovett, RN CH-VASCULAR & INTERVENTIONAL RADIOLOGY Registered Nurse 06/26/25 06/26/25 Monique Tapia LPN VALUE-BASED [place] [address] TCM Nurse 07/10/25 08/09/25 documented as of this encounter
--- OUTSIDE RECORDS SUMMARY | 2025-08-17 13:44 | XMS_ITS | Encounter Summary ---
Author Organization Healthcare Address [address] [place] [address] Care Team Providers Care Marketing Traffic Coordinator Name Role Phone Wilma Howard Ambar ROUSEN Primary Care Provider [phone] Lea Fernando Unavailable [phone] Rachel Ray COIN MACHINE SUPERVISOR Unavailable [phone] Taina Lyles COIN MACHINE SUPERVISOR Primary Care Provider [phone] Monique Tapia LPN Unavailable Unavailable Alvarez Zimmer MD Primary Care Provider [phone] Shaniqua Trevino LABORER MARINE TERMINAL Unavailable Unavailable Tamera Isabel LABORER MARINE TERMINAL Unavailable UnavailAlina Bedolla RN Unavailable Unavailab Monique Che LPN Unavailable Unavailable Encounter Details Date Type Department Care Team (Late st Contact Info) Description 02/26/2024 Orders Only External Location [address] [place] [address] Provider, External Social History Tobacco Use Types [...] AM EDT Clinical Support [facility] [address] [place] [address] 08/20/2025 10:30 AM EDT Social Work [facility] [address] [facility] [place] [address] [place] [address] 08/20/2025 11:00 AM EDT Office Visit [facility] [address] [place] [address] Jude Duque MD [address] [facility] [address] [place] [address] 08/22/2025 11:15 AM EDT Appointment [facility] [address] [place] [address] 08/22/2025 12:15 PM EDT Appointment [facility] [address] [place] [address] 08/26/2025 1:00 PM EDT Office Visit [facility] Endocrinology [address] [place] [address] Miranda Hobson P, COIN MACHINE SUPERVISOR [address] [place] [address] 08/29/2025 10:00 AM EDT Appointment [facility] [address] [place] [address] 08/29/2025 11:00 AM EDT Appointment [facility] [address] [place] [address] 09/05/2025 10:00 AM EDT Appointment [facility] [address] [place] [address] 09/05/2025 11:00 AM EDT Appointment [facility] [address] [place] [address] documented as of this encounter Procedures Procedure [...] documented as of this encounter Care Teams Marketing Traffic Coordinator Relationship Specialty Start Date End Date Wilma Howard APRN [address] [place] [address] [place] [address] PCP - General 04/03/21 09/30/24 Taina Lyles APRN [address] [place] [address] [place] [address] PCP - General 10/01/24 12/06/24 Alvarez Zimmer MD [address] [place] [address] PCP - General Family Medicine 12/07/24 Lea Fernando [address] [place] [address] Pipe Coverer And Insulator Endocrinology 08/29/24 Rachel Ray APRN [address] [place] [address] Nurse Practitioner Gastroenterology 09/24/24 Monique Tapia LPN VALUE-BASED [place] [address] TCM Nurse 11/28/24 12/28/24 Shaniqua Trevino LPN TCM Nurse 01/15/25 02/14/25 Tamera Isabel LPN VALUE-BASED TRANSFORMATION PROGRAM Licensed Practical Nurse 05/29/25 Alina Lovett, RN CH-VASCULAR & INTERVENTIONAL RADIOLOGY Registered Nurse 06/26/25 06/26/25 Monique Tapia LPN VALUE-BAS[place] [address] TCM Nurse 07/10/25 08/09/25 documented as of this encounter
[2025-08-17 14:21] LABS: Ammonia 133 umol/L (9-30)
[2025-08-17 15:15] LABS: Anion Gap 14.2 mEq/L (5-15); Blood Urea Nitrogen 40 mg/dl (7-17); Calcium 7.6 mg/dl (8.4-10.2); Carbon Dioxide 20 mmol/L (22.0-30.0); Chloride 100 mmol/L (98-107); Creatinine,Serum 3.00 mg/dl (0.52-1.04); Estimated Glomerular Filt Rate 16 ml/min (>60); GFR (African American) 19 ML/MIN (>60); Glucose 238 mg/dl (74-100); Potassium 4.2 mmoL/L (3.5-5.1); Sodium 130 mmol/L (136-145)
== END 2025-08-17 23:59 | disposition home or self-care (01) ==
LOC: LAB 13:32
PROVIDERS: PCP Nurse Practitioner Family; Visit Provider Nurse Practitioner Family
DX: N18.32 Chronic kidney disease, stage 3b (principal); J44.9 Chronic obstructive pulmonary disease, unspecified; K70.31 Alcoholic cirrhosis of liver with ascites; K72.90 Hepatic failure, unspecified without coma
CPT/HCPCS: 80048; 82140

== ENCOUNTER 2025-08-17 13:35 | Outpatient (CLI) | payer MEDICARE, MEDICAID, SELFPAY ==
--- OUTSIDE RECORDS SUMMARY | 2014-04-02 05:08 | XMS_ITS | Continuity of Care Document ---
Author Organization [facility] Address [address] [place] [address] Phone Care Team Providers Care In Service Coordinator Name Role Phone Kristian Ayala MD Unavailable [...] Active Procedures Procedure Date REFRACTION OFFICE/OUTPATIENT VISIT, [facility] Advance Directives Directive Yes / No Effective Date File Name No Information Encounters Encounter Description Practice Location Reason(s) For Visit Diagnoses Date Provider OFFICE/OUTPATI ENT VISIT, [facility] , [address] [place] [address], [address], [place] tel:[phone] [place] [facility] diabetes (chief complaint)d ecreased vision (chief complaint) Diabetes Mellitus, Adult Onset, UncontrolledSenile nuclear sclerosis Jamie Townsend. [address] [facility], [place], [address]. tel:[phone] Family History Family Member Type Diagnosis Age At Onset Father Problem (finding) degenerative disorder o f macula Father Problem (finding) cataract Payers Payer name Insurance type Covered republican ID Annalee de leon(s) [facility] Community Plan CI [id number] Social History Type Description Quantity Date Captured [...]
--- OUTSIDE RECORDS SUMMARY | 2025-08-17 13:47 | XMS_ITS | Data Portability ---
Author Organization [facility] Office Address [address] [address] Care Team Providers Care Morning Show Newscast Producer Name Role Phone ERYN PARKINSON Primary Care Provider [phone] [facility] RITA pizarro Provider Assessment Encounter Date Assessment Date Assessment LastModified by Organization Details LastModified Time 11/26/2022 11/26/2022 Pleasant 62-year-old female, worsening back pain after a fall, signs of spinal stenosis. Has failed conservative treatments, I cannot utilize NSAIDs due to thrombocytopenia. Doing physical therapy without much improvement. We discussed ordering an MRI for her today. We will order lab work as well to better evaluate her thrombocytopenia. Baseline UDS today as part of a new patient evaluation. Will order MRI of the lumbar spine to better evaluate for spinal stenosis especially given the weakness, frequency of falls etc. Not available 11/26/2022 09:54:41 01/28/2023 01/28/2023 We reviewed her MRI today. After more in-depth discussion she considers her back pain separate from her knee pain. She does not have signs of radicular symptoms and could not straight leg raise. She does have positive facet loading. We discussed performing bilateral lumbar medial branch blocks and she wishes to proceed. She has failed a variety of other conservative treatments options and has spondylosis on her exam. The plan would be to perform the radiofrequency ablation should the medial branch injections be beneficial. If medial branches are not helpful or she develops more radicular symptoms I would consider a lumbar epidural. When I be mindful of the patient's platelet count due to her thrombocytopenia. Not available 01/28/2023 11:20:55 Plan of Treatment Reminders Order Date Submit Date Provider Last Modified By Organization Details Last Modified Time Details Appointments None recorded. Lab drug screen, urine - Meds: hydrocodone valium nws 2022 023 SUNITA Jurado MD [facility] ([facility]), [facility] [place], [address], 3 16:41:24 drug screen, urine - Meds: NO CURRENT MEDS 2022 023 [email or web address] 1 Rosemarie Jurado MD [facility] (In House Lab), [facility] [place], [address], 3 12:54:43 drug screen, urine - Meds: 2022 023 nishant Jurado MD [facility] (In House Lab), [facility] [place], [address], 3 11:50:47 CBC w/ auto diff 2022 023 nishant Jurado MD [facility] (In House Lab), [facility] [place], [address], 3 07:38:35 hepatic function panel, serum 2022 023 SUNITA Jurado MD [facility] (In House Lab), [facility] [place], [address], 3 09:40:53 gamma-gluta myl transferase (ggt), serum 2022 023 SUNITA Jurado MD [facility] (In House Lab), [facility] [place], [address], 3 09:40:54 venipunctur e 2022 023 nishant Jurado MD [facility] ([facility]), [facility], [place], [address], 3 07:38:43 Referral None recorded. Procedures medial branch block, lumbar (PROC) - l4/5, l5/S1 bilateral, dr joseph 2022 023 [email or web address] [facility], [address] [place] [address], [facility]. [address], [place], [address], 3 13:25:14 Surgeries None recorded. Imaging MRI, lumbar spine, w/o contrast 2022 023 [facility] (Imaging), [address] [facility], [place], [address], 3 17:05:25 Medication Orders hydrocodone 10 mg-acetamin ophen 325 mg tablet 2022 023 [facility], [address], [place], [address], 3 10:25:56 hydrocodone 10 mg-acetamin ophen 325 mg tablet 2022 023 [facility], [address] [place], [address], 3 10:25:55 hydrocodone 10 mg-acetamin ophen 325 mg tablet [address] [facility], [address] [place], [address], 3 10:21:09 hydrocodone 10 mg-acetamin ophen 325 mg tablet 2022 023 [facility], [address] [place], [address], 3 15:01:34 Patient TargetsNo targets recorded. Patient Instructions Encounter Date Encounter Id Patient Instructions Last Modified By Organization Details Last Modified Time 04/04/2023 [id number] Take medications EXACTLY as instructed. Call office for any problems DO NOT run out of medications and medications should last till next appointment. Notify office if going to be late or need to reschedule. [email or web address] Not available 03/28/2023 10:53:16 05/31/2023 [id number] Take medication as directed. Keep all appointments as scheduled. Call the office if any problems. Notify the office if have to reschedule at earliest time. [email or web address] Not available 05/30/2023 16:04:23 Reason for Referral None Reported. Results Created Date Observation Date Name Description Value Unit Range Abnormal Flag Note LastModifiedBy Organization Detail LastModifiedTime 11/26/1911/26/2022 CBC abnormal status critical low Not Available Rosemarie Jurado MD [facility] ([facility]) [address] [place] [address], [address], 11/27/2022 09:40:55 11/26/19 23 11/26/2022 CBC abnormal status high Not Available Genaro Jurado MD [facility] ([facility]) [address] [place] [address], [address], 11/27/2022 09:40:55 11/26/19 23 11/26/2022 CBC abnormal status low Not Available Genaro Jurado MD [facility] ([facility]) [address] [place] [address], [address], 11/27/2022 09:40:55 11/26/19 23 11/27/2022 GGT GGT 103 IU/L 0-60 high Not Available Rosemarie Jurado MD [facility] ([facility]) [address] [place] [address], [address], 11/27/2022 09:40:54 11/26/19 23 11/27/2022 RENAL PANEL (10) glucose 317 mg/dL 70-99 high Not Available Rosemarie Jurado MD [facility] ([facility]) [address] [place] [address], [address], 11/27/2022 09:40:54 11/26/19 23 11/27/2022 RENAL PANEL (10) BUN 10 mg/dL 8-27 Not Available Rosemarie Jurado MD [facility] (In House Lab) [address] [place], [address], 11/27/2022 09:40:54 11/26/19 23 11/27/2022 RENAL PANEL (10) creatinine 0.74 mg/dL 0.57-1 .00 Not Available Rosemarie Jurado MD [facility] (In House Lab) [address] [place], [address], 11/27/2022 09:40:54 11/26/19 23 11/27/2022 RENAL PANEL (10) BUN/creatini ne ratio 14 12-28 Not Available Genaro Jurado MD [facility] (In House [facility]) [address] [place], [address], 11/27/2022 09:40:54 11/26/19 23 11/27/2022 RENAL PANEL (10) sodium 139 mmol/ L 134-14 4 Not Available Rosemarie Jurado MD [facility] (In House [facility]) [address] [place] [address], [address], 11/27/2022 09:40:54 11/26/19 23 11/27/2022 RENAL PANEL (10) potassium 4.4 mmol/ L 3.5-5. 2 Not Available Rosemarie Jurado MD [facility] (In House [facility]) [address] [place], [address], 11/27/2022 09:40:54 11/26/19 23 11/27/2022 RENAL PANEL (10) chloride 101 mmol/ L 96-106 Not Available Rosemarie Jurado MD [facility] (In House [facility]) [address] [place], [address], 11/27/2022 09:40:54 11/26/19 23 11/27/2022 RENAL PANEL (10) carbon dioxide, total 25 mmol/ L 20-29 Not Available Rosemarie Jurado MD [facility] (In House [facility]) [address] [place], [address], 11/27/2022 09:40:54 11/26/19 23 11/27/2022 RENAL PANEL (10) calcium 8.7 mg/dL 8.7-10 .3 Not Available Rosemarie Jurado MD [facility] (In House [facility]) [address] [place] [address], [address], 11/27/2022 09:40:54 11/26/19 23 11/27/2022 RENAL PANEL (10) phosphorus 3.9 mg/dL 3.0-4. 3 Not Available Rosemarie Jurado MD [facility] (In House [facility]) [address] [place] [address], [address], 11/27/2022 09:40:54 11/26/1911/27/2022 RENAL PANEL (10) albumin 3.7 g/dL 3.8-4. 9 low Not Available Rosemarie Jurado MD [facility] (In [facility]) [address] [place] [address], [address], 11/27/2022 09:40:54 11/26/1911/27/2022 HEPAT IC FUNCT ION PANEL (7) protein, total 7.2 g/dL 6.0-8. 5 Not Available Rosemarie Jurado MD [facility] (In House [facility]) [address] [place] [address], [address], 11/27/2022 09:40:53 11/26/1911/27/2022 HEPAT IC FUNCT ION PANEL (7) bilirubin, total 1.3 mg/dL 0.0-1. 2 high Not Available Rosemarie Jurado MD [facility] (In [facility]) [address] [place] [address], [address], 11/27/2022 09:40:53 11/26/19 23 11/27/2022 HEPAT IC FUNCT ION PANEL (7) bilirubin, direct 0.51 mg/dL 0.00-0 .40 high Not Available Rosemarie Jurado MD [facility] (In [facility]) [address] [place] [address], [address], 11/27/2022 09:40:53 11/26/19 11/27/2022 HEPAT IC FUNCT ION PANEL (7) alkaline phosphatase 182 IU/L 44-121 high Not Available Hilario Jurado MD [facility] (In House [facility]) [address] [place], [address], 11/27/2022 09:40:53 11/26/19 23 11/27/2022 HEPAT IC FUNCT ION PANEL (7) AST (SGOT) 57 IU/L 0-40 high Not Available Rosemarie Jurado MD [facility] (In House [facility]) [address] [place], [address], 11/27/2022 09:40:53 11/26/19 23 11/27/2022 HEPAT IC FUNCT ION PANEL (7) ALT (SGPT) 25 IU/L 0-32 Not Available Rosemarie Jurado MD [facility] (In House [facility]) [address] [place], [address], 11/27/2022 09:40:53 11/26/19 23 11/26/2022 UDM LABCO RP-U1 0 UNBUN D+ALC +SVT please note: Commen t Drug- test resul ts shoul d be inter prete d in the [facility] hayley Rebolledoe nt metab olic varia bles, speci fic drug chemi stry, and speci men christi cteri stics can affec t test outco me. Techn ical consu ltati on is avail able if a test resul t is incon siste nt with an expec michael outco me. (emanavid hicks gemen [email or web address] or call toll- free [phone]) . Drug brand s, if liste d herei n, are trade lorenzo of their respe ctive package winder s. Not Available Rosemarie Jurado MD [facility] (In [facility]) [address] [place], [address], 12/01/2022 09:42:55 11/26/19 23 11/27/2022 UDM LABCO RP-U1 0 UNBUN D+ALC +SVT amphetamines screen, urine Negati ve NG/mL cutoff =1000 Not Available Rosemarie Jurado MD [facility] ([facility]) [address] [place] [address], [address], 12/01/2022 09:42:55 11/26/19 23 11/27/2022 UDM LABCO RP-U1 0 UNBUN D+ALC +SVT barbiturates screen, urine See Final Result s NG/mL cutoff =200 Not Available Rosemarie Jurado MD [facility] ([facility]) [address] [place] [address], [address], 12/01/2022 09:42:55 11/26/19 23 11/27/2022 UDM LABCO RP-U1 0 UNBUN D+ALC +SVT benzodiazepi lisbet screen, urine Negati ve NG/mL cutoff =200 Not Available Rosemarie Jurado MD [facility] ([facility]) [address] [place] [address], [address], 12/01/2022 09:42:55 11/26/19 23 11/27/2022 UDM LABCO RP-U1 0 UNBUN D+ALC +SVT cannabinoid screen, urine Negati ve NG/mL cutoff =20 Not Available Rosemarie Jurado MD [facility] ([facility]) [address] [place] [address], [address], 12/01/2022 09:42:55 11/26/19 23 11/27/2022 UDM LABCO RP-U1 0 UNBUN D+ALC +SVT cocaine (metab.) screen, urine Negati ve NG/mL cutoff =300 Not Available Rosemarie Jurado MD [facility] ([facility]) [address] [place] [address], [address], 12/01/2022 09:42:55 11/26/19 23 11/27/2022 UDM LABCO RP-U1 0 UNBUN D+ALC +SVT opiate screen, urine Negati ve NG/mL cutoff =300 Opiat e test inclu hal Codei ne, Morph ine, Vaughn morph one, Vaughn codon e. Not Available Rosemarie Jurado MD [facility] ([facility]) [address] [place] [address], [place], [address], 12/01/2022 09:42:55 11/26/19 23 11/27/2022 UDM LABCO RP-U1 0 UNBUN D+ALC +SVT 6-acetylmorp svitlana, urine Negati ve NG/mL cutoff =10 Not Available Rosemarie Jurado MD [facility] (In [facility]) [address] [place] [address], [address], 12/01/2022 09:42:55 11/26/19 23 11/27/2022 UDM LABCO RP-U1 0 UNBUN D+ALC +SVT oxycodone/ox ymorphone, urine Negati ve NG/mL cutoff =100 Test inclu hal Oxyco done and Oxymo rphon e Not Available Rosemarie Jurado MD [facility] (In [facility]) [address] [place] [address], [address], 12/01/2022 09:42:55 11/26/19 23 11/27/2022 UDM LABCO RP-U1 0 UNBUN D+ALC +SVT methadone screen, urine Negati ve NG/mL cutoff =300 Not Available Rosemarie Jurado MD [facility] (In [facility]) [address] [place] [address], [address], 12/01/2022 09:42:55 11/26/19 23 11/27/2022 UDM LABCO RP-U1 0 UNBUN D+ALC +SVT buprenorphin e, urine Negati ve NG/mL cutoff =10 Not Available Rosemarie Jurado MD [facility] (In [facility]) [address] [place], [address], 12/01/2022 09:42:55 11/26/1911/27/2022 UDM LABCO RP-U1 0 UNBUN D+ALC +SVT ethanol, urine Negati ve mg/dL cutoff =0.020 Not Available Rosemarie Jurado MD [facility] ([facility]) [address] [place] [address], [address], 12/01/2022 09:42:55 11/26/19 23 11/27/2022 UDM LABCO RP-U1 0 UNBUN D+ALC +SVT creatinine, urine 262.9 mg/dL 20.0-3 00.0 Not Available Rosemarie Jurado MD [facility] ([facility]) [address] [place], [address], 12/01/2022 09:42:55 11/26/19 23 11/27/2022 UDM LABCO RP-U1 0 UNBUN D+ALC +SVT pH, urine 6.2 4.5-8. 9 Not Available Rosemarie Jurado MD [facility] ([facility]) [address] [place], [address], 12/01/2022 09:42:55 04/04/2004/04/2023 BENZO DIAZE TRE CONFI RMATI ON,UR INE abnormal status abnormal Not Available Genaro Jurado MD [facility] ([facility]) [address] [place], [address], 04/11/2023 16:41:25 04/04/20 23 04/05/2023 UDM LABCO RP-U1 0 UNBUN D+ALC +SVT please note: Commen t Drug- test resul ts shoul d be inter prete d in the [facility]i [facility]ennifer infor matio n. Patie nt metab olic varia bles, speci fic drug chemi stry, and speci men christi cteri stics can affec t test outco me. Techn ical consu ltati on is avail able if a test resul t is incon siste nt with an expec michael outco me. (emai l-asim nmana gemen [email or web address] or call toll- free [phone]) . Drug brand s, if liste d herei n, are trade lorenzo of their respe ctive package winder s. Not Available Rosemarie Jurado MD [facility] ([facility]) [address] [place], [address], 04/11/2023 16:41:24 04/04/20 23 04/07/2023 UDM LABCO RP-U1 0 UNBUN D+ALC +SVT amphetamines screen, urine Negati ve NG/mL cutoff =1000 Not Available Rosemarie Jurado MD [facility] (In [facility]) [address] [place] [address], [address], 04/11/2023 16:41:24 04/04/20 23 04/07/2023 UDM LABCO RP-U1 0 UNBUN D+ALC +SVT barbiturates screen, urine Negati ve NG/mL cutoff =200 Not Available Rosemarie Jurado MD [facility] (In [facility]) [address] [place] [address], [address], 04/11/2023 16:41:24 04/04/20 23 04/07/2023 UDM LABCO RP-U1 0 UNBUN D+ALC +SVT benzodiazepi lisbet screen, urine See Final Result s NG/mL cutoff =200 Not Available Rosemarie Jurado MD [facility] ([facility]) [address] [place] [address], [address], 04/11/2023 16:41:24 04/04/20 23 04/07/2023 UDM LABCO RP-U1 0 UNBUN D+ALC +SVT cannabinoid screen, urine Negati ve NG/mL cutoff =20 Not Available Rosemarie Jurado MD [facility] ([facility]) [address] [place] [address], [address], 04/11/2023 16:41:24 04/04/20 23 04/07/2023 UDM LABCO RP-U1 0 UNBUN D+ALC +SVT cocaine (metab.) screen, urine Negati ve NG/mL cutoff =300 Not Available Rosemarie Jurado MD [facility] ([facility]) [address] [place] [address], [address], 04/11/2023 16:41:24 04/04/20 23 04/07/2023 UDM LABCO RP-U1 0 UNBUN D+ALC +SVT opiate screen, urine Negati ve NG/mL cutoff =300 Opiat e test inclu hal Codei ne, Morph ine, Vaughn morph one, Vaughn codon e. Not Available Rosemarie Jurado MD [facility] ([facility]) [address] [place] [address], [address], 04/11/2023 16:41:24 04/04/20 23 04/07/2023 UDM LABCO RP-U1 0 UNBUN D+ALC +SVT 6-acetylmorp svitlana, urine Negati ve NG/mL cutoff =10 Not Available Rosemarie Jurado MD [facility] ([facility]) [address] [place] [address], [address], 04/11/2023 16:41:24 04/04/20 23 04/07/2023 UDM LABCO RP-U1 0 UNBUN D+ALC +SVT oxycodone/ox ymorphone, urine Negati ve NG/mL cutoff =100 Test inclu hal Oxyco done and Oxymo rphon e Not Available Rosemarie Jurado MD [facility] ([facility]) [address] [place] [address], [address], 04/11/2023 16:41:24 04/04/20 23 04/07/2023 UDM LABCO RP-U1 0 UNBUN D+ALC +SVT methadone screen, urine Negati ve NG/mL cutoff =300 Not Available Rosemarie Jurado MD [facility] (In [facility]) [address] [place] [address], [address], 04/11/2023 16:41:24 04/04/20 23 04/07/2023 UDM LABCO RP-U1 0 UNBUN D+ALC +SVT buprenorphin e, urine Negati ve NG/mL cutoff =10 Not Available Rosemarie Jurado MD [facility] ([facility]) [address] [place] [address], [address], 04/11/2023 16:41:24 04/04/20 23 04/07/2023 UDM LABCO RP-U1 0 UNBUN D+ALC +SVT ethanol, urine Negati ve mg/dL cutoff =0.020 Not Available Rosemarie Jurado MD [facility] ([facility]) [address] [place], [address], 04/11/2023 16:41:24 04/04/20 23 04/07/2023 UDM LABCO RP-U1 0 UNBUN D+ALC +SVT creatinine, urine 216.4 mg/dL 20.0-3 00.0 Not Available Rosemarie Jurado MD [facility] ([facility]) [address] [place], [address], 04/11/2023 16:41:24 04/04/20 23 04/07/2023 UDM LABCO RP-U1 0 UNBUN D+ALC +SVT pH, urine 6.8 4.5-8. 9 Not Available Rosemarie Jurado MD [facility] ([facility]) [address] [place], [address], 04/11/2023 16:41:24 Result Notes None recorded. Problems Name Problem SNOMED Code Status Onset Date Resolution Date Notes Provider Name and Address Organization Details Recorded Time Chronic neck pain 820259797608 7 Active 2022 [facility] 10:56:03 Chronic back pain 868715336 Active 2022 [facility] 10:56:12 Pain of knee region 4847697740 Active 2022 bilateral [facility] 10:56:40 Deep venous thrombosi s 063719889 Active 2022 [facility] 10:57:25 Diabetes mellitus 13713595 Active 2022 [facility] 10:57:35 Chronic urinary tract infection 251286622 Active 2022 [facility] 10:57:48 Acid reflux 642717473 Active 2022 [facility] 10:57:58 Ulcer 547991265 Active 2022 [facility] 10:58:06 Obesity 585144430 Active 2022 [facility] 10:58:14 Irritable bowel syndrome 31969259 Active 2022 [facility] 10:58:23 Bilateral cataracts 63071240 Active 2022 [facility] 10:58:39 Sinusitis 09536122 Active 2022 [facility] 10:58:47 Hearing loss 40998427 Active 2022 [facility] 10:58:55 Sudden visual loss 88243049 Active 2022 [facility] 10:59:11 Temporoma ndibular joint disorder 32044147 Active 2022 [facility] 10:59:24 Has difficult y with speech 888987870 Active 2022 [facility] 10:59:34 Syncope 095855254 Active 2022 [facility] 11:40:54 Osteoarth ritis 446724585 Active 2022 [facility] 11:41:08 Carpal tunnel syndrome 12545340 Active 2022 [facility] 11:41:19 Degenerat ion of intervert ebral disc 14747951 Active 2022 [facility] 11:41:33 Headache 96650803 Active 2022 [facility] 11:41:41 Migraine 27292672 Active 2022 [facility] 11:41:48 Injury of head 49827865 Active 2022 [facility] 11:41:58 Chronic confusion 775835751 Active 2022 [facility] 11:42:08 Amnesia 41489116 Active 2022 [facility] 11:42:28 Asthma 050887965 Active 2022 [facility] 11:42:36 Sleep apnea 23763369 Active 2022 [facility] 3 11:42:44 Depressiv e disorder 68547920 Active 2022 [facility] 3 11:42:51 Anxiety 95968027 Active 2022 [facility] 3 11:42:59 Problem Notes None recorded. Procedures Surgical History Date Name Laterality Status Provider Name and Address Organization Details Recorded Time 015 synovectomy of joint completed [facility] 11/25/2022 11:45:03 015 hysterectomy completed [facility] 11/25/2022 11:45:16 011 biopsy of breast completed [facility] 11/25/2022 11:45:30 980 cholecystectomy completed [facility] 11/25/2022 11:43:36 980 Appendectomy completed [facility] 11/25/2022 11:44:05 procedure on urinary bladder completed Tayler [facility] 11/26/2022 08:47:26 Imaging Results None recorded. Procedure Notes None recorded. Medical Equipment None Reported. Allergies No known drug allergies Medications Name Sig Start Date Stop Date Status Note LastModified by Organization Details LastModified Time clindamycin HCl 300 mg capsule TAKE 1 CAPSULE BY MOUTH THREE TIMES A DAY UNTIL GONE active Not Available Not Available No t Available trazodone 50 mg tablet TAKE 1 OR 2 TABLETS BY MOUTH ONE TIME A DAY AT NIGHT NEEDED FOR SLEEP active Not Available Not Available No t Available cetirizine 10 mg tablet TAKE 1 TABLET BY MOUTH EVERY DAY NEEDED active Not Available Not Available No t Available Humulin R U-500 (Concentrat ed) Insulin 500 unit/mL subcutaneou s soln INJECT 18 UNITS SUB-Q USING ORANGE CAPPED U100 SYRINGE 2 TIMES A DAY WITH FOOD - DISCARD VIAL 40 DAYS AFTER 1ST USE active Not Available Not Available No t Available oxybutynin chloride ER 10 mg tablet,exte nded release 24 hr TAKE 1 TABLET BY MOUTH EVERY DAY active Not Available Not Available No t Available IBU 800 mg tablet TAKE 1 TABLET BY MOUTH FOUR TIMES A DAY NEEDED FOR PAIN active Not Available Not Available No t Available hydrocodone 5 mg-acetamin ophen 325 mg tablet TAKE 1 TABLET BY MOUTH EVERY SIX HOURS NEEDED FOR mild PAIN 11/26 completed Not Available Not Available Not Available ondansetron HCl 4 mg tablet Take 1 tablet by mouth Every 8 (Eight) Hours As Needed for Nausea or Vomiting. active Not Available Not Available No t Available Accu-Chek Softclix Lancets USE TO CHECK BLOOD GLUCOSE THREE TIMES DAILY OR DIRECTED active Not Available Not Available No t Available diphenoxyla te-atropine 2.5 mg-0.025 mg tablet TAKE 1 TABLET BY MOUTH TWO TIMES A DAY NEEDED active Not Available Not Available No t Available ciprofloxac in 500 mg tablet TAKE 1 TABLET BY MOUTH 2 TIMES A DAY UNTIL GONE active Not Available Not Available No t Available sulfamethox azole 800 mg-trimetho prim 160 mg tablet TAKE 1 TABLET BY MOUTH TWO TIMES A DAY FOR 10 DAYS active Not Available Not Available No t Available hydrocodone 10 mg-acetamin ophen 325 mg tablet Take 1 tablet every 6 hours by oral route for 30 days. active Not Available Not Available No t Available ondansetron 8 mg disintegrat ing tablet DISSOLVE 1 TABLET IN MOUTH EVERY SIX HOURS NEEDED FOR NAUSEA active Not Available Not Available No t Available famotidine 20 mg tablet TAKE 1 TABLET BY MOUTH TWO TIMES A DAY active Not Available Not Available No t Available amitriptyli ne 25 mg tablet TAKE 1 TABLET BY MOUTH AT BEDTIME active Not Available Not Available No t Available trazodone 100 mg tablet TAKE 1 OR 1 AND 1/2 TABLETS BY MOUTH AT NIGHT active Not Available Not Available No t Available cephalexin 500 mg capsule TAKE 1 CAPSULE BY MOUTH EVERY DAY active Not Available Not Available No t Available pantoprazol e 40 mg tablet,chuy yed release TAKE 1 TABLET BY MOUTH IN THE MORNING 30 minutes before breakfast active Not Available Not Available No t Available metformin 1,000 mg tablet TAKE 1 TABLET BY MOUTH TWO TIMES A DAY WITH MEALS active Not Available Not Available No t Available magnesium 500 mg (as magnesium oxide) tablet TAKE 1 TABLET BY MOUTH THREE TIMES A DAY active Not Available Not Available No t Available nitroglycer in 0.4 mg sublingual tablet active Not Available Not Available Not Available sertraline 25 mg tablet active Not Available Not Available Not Available omeprazole 20 mg capsule,del ayed release TAKE 1 CAPSULE BY MOUTH ONE OR TWO TIMES A DAY active Not Available Not Available No t Available furosemide 20 mg tablet active Not Available Not Available Not Available diazepam 10 mg tablet TAKE 1 TABLET BY MOUTH 30 MINUTES BEFORE PROCEDURE active Not Available Not Available No t Available methylpredn isolone 4 mg tablets in a dose pack TAKE ONE ROW OF TABLETS BY MOUTH EACH DAY INSTRUCTE D ON THE PACKAGE active Not Available Not Available No t Available sertraline 50 mg tablet active Not Available Not Available Not Available Novolog Mix 70-30 FlexPen U-100 Insulin 100 unit/mL subcutaneou s pen Inject 85 Units under the skin 1 time each day before breakfast AND 70 Units 1 time each day before evening meal. active Not Available Not Available No t Available ezetimibe 10 mg tablet TAKE 1 TABLET BY MOUTH EVERY DAY active Not Available Not Available No t Available Novolog FlexPen U-100 Insulin aspart 100 unit/mL (3 mL) subcutaneou s active Not Available Not Available Not Available cyclobenzap rine 5 mg tablet TAKE 1 TABLET BY MOUTH THREE TIMES A DAY NEEDED FOR MUSCLE SPASM active Not Available Not Available No t Available rosuvastati n 10 mg tablet active Not Available Not Available Not Available rosuvastati n 20 mg tablet TAKE 1 TABLET BY MOUTH AT BEDTIME active Not Available Not Available No t Available bupropion HCl XL 150 mg 24 hr tablet, extended release TAKE 1 TABLET BY MOUTH IN THE MORNING active Not Available Not Available No t Available BD Ultra Fine II Insulin Syringe 0.3 mL 31 gauge x 5/16 Use as instructe d TO INJECT twice daily active Not Available Not Available No t Available zonisamide 50 mg capsule TAKE 1 CAPSULE BY MOUTH EVERY DAY active Not Available Not Available No t Available nitrofurant oin monohydrate /macrocryst als 100 mg capsule TAKE 1 CAPSULE BY MOUTH 2 TIMES A DAY active Not Available Not Available No t Available Lantus Solostar U-100 Insulin 100 unit/mL (3 mL) subcutaneou s pen active Not Available Not Available Not Available GaviLyte-G 236 gram-22.74 gram-6.74 gram-5.86 gram oral solution USE DIRECTED FOR BOWEL PREPARATI ON active Not Available Not Available No t Available TRUEplus Lancets 30 gauge USE TO CHECK BLOOD GLUCOSE THREE TIMES DAILY OR DIRECTED active Not Available Not Available No t Available Jardiance 25 mg tablet TAKE 1 TABLET BY MOUTH EVERY DAY active Not Available Not Available No t Available Droplet Pen Needle 32 gauge x 3/16 active Not Available Not Available Not Available Accu-Chek Guide test strips USE TO TEST BLOOD SUGAR THREE TIMES DAILY active Not Available Not Available No t Available Accu-Chek Guide Glucose Meter USE TO CHECK BLOOD GLUCOSE THREE TIMES DAILY OR DIRECTED active Not Available Not Available No t Available BD Julissa 2nd Gen Pen Needle 32 gauge x 32 USE TWICE DAILY DIRECTED FOR INSULIN INJECTION S active Not Available Not Available No t Available Ubrelvy 100 mg tablet active Not Available Not Available No t Available Ubrelvy 50 mg tablet Take 1 tablet by mouth 2 Times a Day As Needed FOR migraine for up to 2 doses. Wait 2 hours before 2nd dose. active Not Available Not Available No t Available DropSafe Alcohol Prep Pads active Not Available Not Available No t Available Vitals Date Recorded Body weight Body mass index (BMI) Body height Body temperature Respiratory rate Heart rate Systolic And Diastolic Provider Name and Address Organization Details Last Updated DateTime 3 30787.5 9 g 30.8 kg/m2 165.1 cm 97.9 [degF] 16 /min 80 /min 117/70 mm[Hg] [facility] 3 08:42:41 Date Recorded Body height Body temperature Respiratory rate Heart rate Body mass index (BMI) Body weight Systolic And Diastolic Provider Name and Address Organization Details Last Updated DateTime 3 165.1 cm 96.8 [degF] 16 /min 74 /min 32 kg/m2 15258.7 4 g 105/57 mm[Hg] Shwetha Lindquist audra [facility] 3 10:24:26 Date Recorded Body height Body temperature Respiratory rate Heart rate Systolic And Diastolic Provider Name and Address Organization Details Last Updated DateTime 3 165.1 cm 97.8 [degF] 16 /min 76 /min 121/67 mm[Hg] Neftali Shanna [facility] 3 14:50:43 Date Recorded Body height Body temperature Respiratory rate Body mass index (BMI) Body weight Heart rate Systolic And Diastolic Provider Name and Address Organization Details Last Updated DateTime 3 165.1 cm 97.5 [degF] 16 /min 32 kg/m2 55946.7 4 g 73 /min 99/59 mm[Hg] Shwetha [facility] 3 10:18:56 Social History Question Answer Notes LastModified by [employer] Details LastModified Time Tobacco Smoking Status Never Smoker [facility] 11/25/2022 11:47:51 Are You Blind Or Do You Have Difficulty Seeing? Yes [email or web address] Information not available 11/26/2022 Are You Deaf Or Do You Have Serious Difficulty Hearing? Yes [email or web address] Information not available 11/26/2022 What Is The Highest Grade Or Level Of School You Have Completed Or The Highest Degree You Have Received? [id number] [email or web address] Information not available 11/26/2022 What Is Your Relationship Status? Information not available 11/25/2022 Do You Have Difficulty Walking Or Climbing Stairs? Yes [email or web address] Information not available 11/26/2022 Are You Currently In School? No [email or web address] Information not available 11/25/2022 Sex: Unknown Functional Status Question Answer Note LastModified by Organizat ion Details LastModified Time Do you use any illicit or recreational drugs? No [email or web address] Information not available 11/25/2022 What is your level of alcohol consumption? None [email or web address] Information not available 11/25/2022 Are you currently employed? No disabled since 2016 Information not available 11/25/2022 Are you able to walk independently without assistance or assistive devices? YESASSIST [email or web address] Information not available 11/26/2022 Do you have difficulty doing errands alone? Yes [email or web address] Information not available 11/26/2022 Are you able to care for yourself independently? Yes [email or web address] Information not available 11/26/2022 Do you have difficulty dressing, bathing, grooming, or toileting? No [email or web address] Information not available 11/26/2022 Mental Status Question Answer Note LastModified by Organizat ion Details LastModified Time Do you feel stressed (tense, restless, nervous, or anxious, or unable to sleep at night)? [id number] [email or web address] Information not available 11/26/2022 Do you have difficulty concentrating, remembering or making decisions? Yes [email or web address] Information no t available 11/26/2022 Family History Relationship Description Onset Age of this Age Resolved Age Notes LastModified by Organization Details LastModified Time Mother Disorder of thyroid gland [email or web address] Not available 08:44:08 Mother Diabetes mellitus [email or web address] Not available 08:44:40 Mother Arthritis [email or web address] Not ender ilable 11/26/2022 08:45:14 Father Diabetes mellitus [email or web address] Not available 08:44:40 Father Arthritis [email or web address] Not ender ilable 11/26/2022 08:45:14 Sister Diabetes mellitus [email or web address] Not available 08:44:40 Sister Arthritis [email or web address] Not ender ilable 11/26/2022 08:45:14 Son Diabetes mellitus [email or web address] Not available 08:44:40 Son Arthritis [id number] Not ender ilable 11/26/2022 08:45:15 Son Arthritis [email or web address] Not ender ilable 11/26/2022 08:45:15 Medical History Condition Response Coronary Artery Disease Y Gout Y Hernia N Head Trauma/Injury Y Depression Y COPD N MVA N Anxiety Disorder Y Arthritis Y Acid Reflux (GERD) Y Cancer N Stroke N Back Injury Y High Cholesterol N Liver Disease Y Headaches Y Fibromyalgia N Kidney Disease N Thyroid Problems N Anemia N Heart Attack (TN) N Ulcers N Diabetes Y Bleeding Disorder N Tuberculosis N AIDS/HIV N Asthma Y Substance Abuse N Hepatitis N Heart Disease N Hypertension N Osteoporosis N Gynecological HistoryNo gynecological history recorded. Obstetrics History GPAL:G 0 P 0 0 0 0 Past Encounters Encounter ID Performer Location Encounter Start Date Encounter Closed Date Diagnosis/Indication Diagnosis SNOMED-CT Code Diagnosis ICD10 Code Diagnosis IMO Codes Diagnosis Note [id number] Allen Joseph MD [address] [place] [address] [phone] 11/26/2022 07:50:17 12/08/2022 17:05:25 Long-term current use of opiate analgesic drug 9128131717 17769 Z79.891 Diagnostic /Lab: Order Presumptiv e UDT (necessary for rapid results) with Definitive confirmati on for chronic pain patient, to define treatment and reinforce therapeuti c compliance ; the following apply: [Presumpti ve UDT includes: (Amp, Vivian, Neeraj, Bup, THC, VANESSA, ETOH, Meth, Opi, Oxy )] *-Patient is receiving controlled medication s. *-Presumpt adina UDT to identify presence of illicit/no n-prescrib ed substance( s) - Confirm positive for ongoing safe prescribin g of controlled substances . *-Presumpt adina UDT to identify presence of licit/pres cribed substance( s)-Confirm unexpected results, identify specific drug(s) in large class and ensure appropriat e use of prescribed medication (s). *-Definiti ve UDT inadequate ly detected by Presumptiv e UDT (gabapenti n, pregabalin , tramadol, fentanyl, tapentadol and carisoprod ol). HP1 (CBC/Renal /Hepatic/G GT) CBC - ordered to monitor the effects of prescribed medication s. Renal/Hepa tic/GGT - ordered to monitor toxicity of renal hepatic function due to medication . Spinal keith nosis of lumbar region 59401631 M48.062 Neuritis d ue to rupture of lumbar intervertebral disc 2859494443 M51.16 [id number] Allen Joseph MD [address] [place] [address] [id number] 4 01/28/2023 10:04:09 02/14/2023 07:48:53 Long-term current use of opiate analgesic drug 3188160620 93523 Z79.891 Diagnostic /Lab: Order Presumptiv e UDT (necessary for rapid results) with Definitive confirmati on for chronic pain patient, to define treatment and reinforce therapeuti c compliance ; the following apply:[Pre sumptive UDT includes: (Amp, Vivian, Neeraj, Bup, THC, VANESSA, ETOH, Meth, Opi, Oxy )]*-Patien t is receiving controlled medication s.*-Presum ptive UDT to identify presence of illicit/no n-prescrib ed substance( s) - Confirm positive for ongoing safe prescribin g of controlled substances .*-Presump tive UDT to identify presence of licit/pres cribed substance( s)-Confirm unexpected results, identify specific drug(s) in large class and ensure appropriat e use of prescribed medication (s). _*-Definit adina UDT inadequate ly detected by Presumptiv e UDT (gabapenti n, pregabalin , tramadol, fentanyl, tapentadol and carisoprod ol). Spondylosi s without myelopathy 63076676 M47.9 Pain of le ft knee region 1057842570 48395 M25.432 [id number] ANAMARIA GARCIA MD [address] [place] [address] [phone] 04/04/2023 14:41:31 04/04/2023 15:22:14 Long-term current use of opiate analgesic drug 3049584196 60981 Z79.891 Lumbar spondylosis 41354 0009 M47.485 [id number] ANAMARIA GARCIA MD [address] [place] [address] [id number] 4 05/31/2023 10:10:07 06/02/2023 10:56:00 Osteoarthritis 523428682 M19.90 Lumbar spondylosis 49326 0009 M47.896 Long-term current use of opiate analgesic drug 1626204811 37768 Z79.891 Diagnostic /Lab: Order Presumptiv e UDT (necessary for rapid results) with Definitive confirmati on for chronic pain patient, to define treatment and reinforce therapeuti c compliance ; the following apply: [Presumpti ve UDT includes: (Amp, Vivian, Neeraj, Bup, THC, VANESSA, ETOH, Meth, Opi, Oxy )] *-Patient is receiving controlled medication s. *-Presumpt adina UDT to identify presence of illicit/no n-prescrib ed substance( s) - Confirm positive for ongoing safe prescribin g of controlled substances . *-Presumpt adina UDT to identify presence of licit/pres cribed substance( s)-Confirm unexpected results, identify specific drug(s) in large class and ensure appropriat e use of prescribed medication (s). *-Definiti ve UDT inadequate ly detected by Presumptiv e UDT (gabapenti n, pregabalin , tramadol, fentanyl, tapentadol and carisoprod ol). Health Concerns Section Related Observation LastModified by Organization Detai ls LastModified Time None Recorded Concern Status LastModified by Organization Details LastModified Time None Recorded Advance Directives Directive None Recorded Payers Insurance Date Sequence Insurance Name Policy Number Policy Ochoa Covered Member ID Ochoa Member ID Guarantor Name 06/20/2023 1 [employer] (MEDICARE REPLACEMENT/A DVANTAGE - PPO) Gabi Zimmer [id number] Gabi Zimmer Notes Date Note Type Note Provider Name and Address Organization Details Recorded Time 11/26/2022 text/html ROS as noted in the HPI This is a pleasant 62-year-old female. She has a long history of back pain, approximately 15 years. Has been worse after a a fall in July. She has been seeing orthopedics and doing physical therapy. Nothing is really helping. She has thrombocytopenia and is unable to take NSAIDs. She has been on pain medications in the past, while they have helped her they have caused terrible constipation and she would rather not take them. She is interested in what other treatment options might be available to her. She reports a low risk score and denies any history of substance abuse problems, she does have anxiety and depression that she reports are well managed. She complains today of constant back pain, it radiates into her legs, her legs cramp and she falls, she has had multiple falls within the last year and these seem to be increasing in frequency. She does not stand and walk anywhere anymore without her walker. She reports decreased ability to do her activities of daily living along with decreased general function. She would like to be able to have an increase in her activity level, she like to not have as many falls, she would like to be more independent. I have reviewed her intake informationNo recent MRI. She does have an x-ray from July which I reviewed, multilevel spondylosis and degenerative disc disease. Denies new ntwifc. Does have a history of bladder issues. [facility] 11/26/2022 09:56:14 01/28/2023 text/html ROS as noted in the HPI Patient is here for follow-up visit today. She has obtained her MRI. We reviewed this today. L1/2 small central disc protrusion with a mild annular bulge. L2/3 no significant disease. L3/4 mild annular bulge and facet arthropathy. L4/5 no significant disease. L5/S1 broad-based left lateral canal and far left lateral disc protrusion, mass effect on the left S1 nerve root with left lateral recess stenosis. Mild bilateral foraminal narrowing.Patient still struggling with low back pain. Reports pain in the left knee as well. The left knee can give out on her, she did have a fall and landed on her tailbone several days ago but reports no new focal deficits. She considers her back pain and knee pain to be separate issues. She is not sure that her back pain radiates. [facility] 01/28/2023 11:22:24 04/04/2023 text/html [facility] report reviewed and compliant. Fell a week and half ago and hurt her left shoulder and her butt hurts too. Her pain is usually in her lower back and upper. She has rested and she is tooo her PCP tomorrow. Pain keeps her awake at night and meds for pain do hel her sleep. Pain is severe. Pain in treated with injections and insurance did not allow for them She does want any injections. ANAMARIA GARCIA MD [address], [place], [phone], [facility] 04/04/2023 15:01:36 05/31/2023 text/html [facility] report reviewed and compliant . She had a bladder stim put in yesterday. Pain is near the site. of insertions. Pain is intermittent.. Pain is intense and severe. Pain meds work ok ANAMARIA GARCIA MD [address], [place], [phone], [facility] 05/31/2023 10:29:08 OBGyn Episode No OBEpisode recorded.
== END 2025-08-17 23:59 | disposition home or self-care (01) ==
LOC: LAB 13:37
PROVIDERS: PCP Nurse Practitioner Family; Visit Provider Nurse Practitioner Family
DX: K70.30 Alcoholic cirrhosis of liver without ascites (principal); J44.9 Chronic obstructive pulmonary disease, unspecified; N18.32 Chronic kidney disease, stage 3b

== ENCOUNTER 2025-08-17 15:09 | Emergency (ER) | payer MEDICARE, MEDICAID, SELFPAY ==
--- OUTSIDE RECORDS SUMMARY | 2014-04-02 05:08 | XMS_ITS | Continuity of Care Document ---
Author Organization [facility] Address [address] [place] [address] Phone Care Team Providers Care Regulatory Affairs Director Name Role Phone Kristian Ayala MD Unavailable Unavailable Allergies, Adverse Reactions, Alerts Substance Reaction Status Criticality No Known Allergies Active No Inform ation Medications Medication Instructions Dosage Effective Dates (start - stop) Status Comments multivitamin tablet take 1 tablet by ora l route every day 1 tablet - Active fenofibrate 160 mg tablet take 1 tablet by oral route every day 160 MG - Active doxycycline hyclate 100 mg capsule take 1 capsule by oral route 2 times every day for 14 days 100 MG - Active All Day Allergy (cetirizine) 10 mg capsule take 1 by Oral route once 1 - Active pravastatin 20 mg tablet take 1 Tablet by oral route every day 20 MG - Active metformin 1,000 mg tablet take 1 tablet by oral route 2 times every day 1000 MG - Active Aspirin Low Dose 81 mg tablet,delayed release take 1 tablet by oral route every day 81 MG - Active Lantus Solostar 100 unit/mL (3 mL) subcutaneous insulin pen inject by subcutaneous route as per insulin protocol 0.00 - Active Novolog 100 unit/mL subcutaneous solution inject by subcutaneous route as per insulin sliding scale protocol - Active Procedures Procedure Date REFRACTION OFFICE/OUTPATIENT VISIT, [facility] Advance Directives Directive Yes / No Effective Date File Name No Information Encounters Encounter Description Practice Location Reason(s) For Visit Diagnoses Date Provider OFFICE/OUTPATI ENT VISIT, [facility] , [address] [place] [address], [address], [place] tel:[phone] [place] [facility] diabetes (chief complaint)d ecreased vision (chief complaint) Diabetes Mellitus, Adult Onset, UncontrolledSenile nuclear sclerosis Jamie Townsend. [address] [facility], [place], [address]. tel:[phone] Family History Family Member Type Diagnosis Age At Onset Father Problem (finding) degenerative disorder o f macula Father Problem (finding) cataract Payers Payer name Insurance type Covered green party ID Annalee de leon(s) [facility] Community Plan CI [id number] Social History Type Description Quantity Date Captured Comments Alcohol Use Details Unknown Caffeine Use Details Unknown Tobacco Use Status Never smoked tobacco 2013 Smoking Status Never smoker Non-Smoking Tobacco Use Details : No Details Available : No Details Available Sex Female Chief Complaint And Reason For Visit From encounter dated '04/02/2014 09:08'. diabetes (chief complaint). Description: The 53 year old female presents for evaluation of diabetesin the right eye and left eye. Patient has had diabetes about 10 years; BS uncontrolled 160 this am; last HbA1c 10.3. decreased vision (chief complaint). Description: The patient is present for evaluation of decreasedvision in the right eye and left eye for several months. Patient feels like she has a haze over eyes that will not clear, problems with glare. History Of Present Illness Encounter Date Complaint History Of Prese nt Illness decreased vision The patient is present for evaluation of decreased vision in the right eye and left eye for several months. Patient feels like she has a haze over eyes that will not clear, problems with glare. diabetes The 53 year old female presents for evaluation of diabetes in the right eye and left eye. Patient has had diabetes about 10 years; BS uncontrolled 160 this am; last HbA1c 10.3. Instructions Date Instruction Additional Infor debby - Diabetes type II: no retinopathy, no signs of neovascularization noted. Discussed ocular and systemic benefits of blood sugar control. Related to Diabetes Mellitus, Adult Onset, Uncontrolled - Cataracts - No mavis atment currently recommended. The patient will monitor vision changes and contact us with any decrease in vision. Related to Senile nuclear sclerosis - Return in 1 year anitha Ayala, M.D. for Diabetic Eval Related to Diabetes Mellitus, Adult Onset, Uncontrolled Assessments Type Assessment Date assessment Diabetes Mellitus, Adult Onset, Uncontrolled assessment Senile nuclear sclerosis 2013
--- OUTSIDE RECORDS SUMMARY | 2023-07-07 19:50 | XMS_ITS | Encounter Summary ---
Author Organization [facility] Address [address] [place] [address] Care Team Providers Care Tinter Photograph Name Role Phone Taina Lyles APRN Primary Care Provider [phone] Reason for Referral * Hospital - Outpatient (Routine) - Closed Specialty Diagnoses / Procedures Referred By Eder zhu Referred To Contact Diagnoses JONATHAN (obstructive sleep apnea) Obesity (BMI 30-39.9) Nocturnal hypoxia Procedures Polysomnography 4 or More Parameters With CPAP Whitney Agarwal MD [address] [place] [address] Phone: tel: fax: Referral ID Status Reason Start Date Expiration Date Visits Re quested Visits Authorized [id number] Closed 04/14/2023 04/13/2024 1 1 Reason for Visit * Hospital - Outpatient (Routine) - Closed Specialty Diagnoses / Procedures Referred By Eder zhu Referred To Contact Diagnoses JONATHAN (obstructive sleep apnea) Obesity (BMI 30-39.9) Nocturnal hypoxia Procedures Polysomnography 4 or More Parameters With CPAP Whitney Agarwal MD [address] [place] [address] [address] Phone: tel: fax: Referral ID Status Reason Start Date Expiration Date Visits Re quested Visits Authorized [id number] Closed 04/14/2023 04/13/2024 1 1 Encounter Details Date Type Department Care Team (Latest Contact Info) Description 07/07/2023 7:50 PM EDT Hospital Encounter [facility] INSTALLATION TECH DIAG CTR [address] [place] [address] Whitney Agarwal MD [address] [facility] [address] [place] [address] JONATHAN (obstructive sleep apnea); Obesity [...] place to sleep or slept in a residential (including now)? No 12/01/2022 Abuse Screen Answer [...] SLEEP MEDICINE - 07/09/2023 12:44 PM EDT [facility] Pulmonary, Critical Care, and Sleep Medicine Whitney Agarwal M.D. [address] [facility] [address] Medical Office [address], [place]. [address]. CPAP/BiPAP TITRATION INTERPRETATION Date of Study: 07/07/2023 [...] feel free to contact the office of [facility] Pulmonary, Critical Care and Sleep Medicine at [phone], if you have any questions about this [...] documented as of this encounter Care Teams Tinter Photograph Relationship Specialty Start Date End Date Taina Lyles APRN PCP - General Nurse Practitioner 12/30/22 documented as of this encounter
--- OUTSIDE RECORDS SUMMARY | 2025-06-20 09:03 | XMS_ITS | Encounter Summary ---
Author Organization [facility] Address [address] [place] [address] Care Team Providers Care Vice President Diversity Name Role Phone Lea Fernando Unavailable [phone] Rachel Ray MARKETING INTELLIGENCE MANAGER Unavailable [phone] Alvarez Zimmer MD Primary Care Provider Tamera Isabel LPN Unavailable Unavailabl e Reason for Referral * Imaging (Routine) - Closed Specialty Diagnoses / Procedures Referred By Eder zhu Referred To Contact Radiology Diagnoses Other ascites Procedures US Guided Abdominal Paracentesis Preeti Andersen APRN [address] [place] [address] Phone: tel: fax: Referral ID Status Reason Start Date Expiration Date Visits Re quested Visits Authorized [id number] Closed 06/20/2025 12/20/2026 1 1 * Clinic-Administered Medication (Routine) - Closed Specialty Diagnoses / Procedures Referred By Contherbert t Referred To Contact Diagnoses Other ascites Procedures NE ABDOM PARACENTESIS DX/THER W IMAGING GUIDANCE Preeti Andersen APRN [address] [place] [address] Phone: tel: fax: [facility] [address] [place] [address] Phone: tel: fax: Referral ID Status Reason Start Date Expiration Date Visits Re quested Visits Authorized [id number] Closed 06/20/2025 12/20/2026 1 1 * Imaging (Routine) - Closed Specialty Diagnoses / Procedures Referred By Contac t Referred To Contact Radiology Diagnoses Other ascites Procedures US Guided Thoracentesis Marianna Gordon APRN [address] [place] [address] Phone: tel: fax: Referral ID Status Reason Start Date Expiration Date Visits Re quested Visits Authorized [id number] Closed 05/23/2025 11/22/2026 1 1 Reason for Visit * Imaging (Routine) - Closed Specialty Diagnoses / Procedures Referred By Eder zhu Referred To Contact Radiology Diagnoses Other ascites Procedures US Guided Abdominal Paracentesis Marianna Gordon APRN [address] [place] [address] Phone: tel: fax: Referral ID Status Reason Start Date Expiration Date Visits Re quested Visits Authorized [id number] Closed 04/26/2025 10/26/2026 1 1 Encounter Details Date Type Department Care Team (Latest Contact Info) Description 06/20/2025 9:03 AM EDT - 06/20/2025 1:03 PM EDT Hospital Encounter [facility] Interventional Radiology [address] [place] [address] Shanthi Rooney Other ascites Discharge Disposition: Home or Self [...] How often do you attend chur or jewish services? Patient unable to answer 01/10/2025 Do you belong to any clubs o r organizations such as tenriism groups, unions, fraternal or athletic groups, or [...] often do you attend chur ch or jewish services? Never 05/29/2025 Do you belong to any clubs o r organizations such as tenriism groups, unions, fraternal or athletic groups, or [...] more drinks on one occasion? Never 06/05/2025 [facility] - [facility]ational Stress Questionnaire Answer [...] drink first t kennedy in the morning (EYE-ENDOSCOPY SUPPORT SPECIALIST) to steady your nerves or to [...] Sign Reading Time Taken Comments Blood Pressure 95/55 06/20/2025 1:00 PM EDT Pulse 63 06/20/2025 1:00 PM EDT Temperature 36.6 C (97.9 F) 06/20/2025 10:00 AM EDT Respiratory Rate 18 06/20/2025 1:00 PM EDT Oxygen Saturation 96% 06/20/2025 1:00 PM EDT Inhaled Oxygen Concentration - - Weight 83.8 kg (184 lb 11.9 oz) 025 10:00 AM EDT Height 165.1 cm (5' 5 ) 06/20/2025 10:0 0 AM EDT Body Mass Index 30.74 06/20/2025 10:00 AM EDT documented in this encounter Medications [...] iver 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 60 tablet 11 06/03/2025 6 [place] 0.6 MG/0.6ML solution auto-injectorIndica tions:Type 2 diabetes mellitus with hyperglycemia, with long-term current use of insulin Inject 0.6 mg under the skin 1 [...] 04/17/2025 5 ergocalciferol (Vitamin D-2) 1.25 MG (81468 UT) capsuleIndications: Vitamin D deficiency Take 1 [...] as of this encounter Miscellaneous Notes * Shanthi Burrell - 06/20/2025 2:09 PM EDT Images from the original note were not included. [id number] Discharge Instructions for Paracentesis Paracentesis is a [...] fainting. Last Reviewed Date: 2025 00:00:00 ?? [id number] [employer]. All rights reserved. This information is not intended as a substitute for professional medical care. Always follow your healthcare professional's instructions. * Post-Procedure Note - Preeti Andersen APRN - 06/20/2025 11:15 AM EDT Vascular and Interventional Radiology Brief Postprocedure Note Provider: ADRI Andersen Pre-operative Diagnosis: ascites and recurrent hepatic hydrothorax Post-operative Diagnosis: Type of Anesthesia: Local Description of Findings: See PACS Technical/Surgical Procedures Used: US + paracentesis + thoracentesis Specimen Obtained: YES Complications: None Estimated Blood Loss: none Procedure Events Event Event Time See detailed result report with images in PACS. The patient tolerated the procedure well without incident or complication and is in stable condition. documented in this encounter Plan of Treatment Upcoming Encounters Date Type Department Care Team (Late st Contact Info) Description 08/20/2025 9:30 AM EDT Clinical Support [facility] [address] [place] [address] 08/20/2025 10:30 AM EDT Social Work [facility] [place] [address] [place] [address] [place] [address] 08/20/2025 11:00 AM EDT Office Visit [facility] [place] [address] [place] [address] Jude Duque MD [address] [place] [address] 08/22/2025 11:15 AM EDT Appointment [facility] [address] [place] [address] 08/22/2025 12:15 PM EDT Appointment [facility] Inter[facility] Radiology [address] [place] [address] 08/26/2025 1:00 PM EDT Office Visit [facility] [address] [place] [id number] Miranda Hobson, MARKETING INTELLIGENCE MANAGER [address] [place] [address] 08/29/2025 10:00 AM EDT Appointment [facility] [address] [place] [address] 08/29/2025 11:00 AM EDT Appointment [facility] [address] [place] [address] 09/05/2025 10:00 AM EDT Appointment [facility] [address] [place] [address] 09/05/2025 11:00 AM EDT Appointment [facility] [address] [place] [address] documented as of this encounter Procedures Procedure Name Priority Date/Time Associated Diagnosis Comments XR CHEST 1 VIEW STAT 06/20/2025 1:38 PM EDT US GUIDED ABDOMINAL PARACENTESIS Routine 06/20/2025 12:32 PM EDT Other ascites US GUIDED THORACENTESIS Routine 06/20/20 12:32 PM EDT Other ascites BODY FLUID CELL COUNT W/ MANUAL DIFFERENTIAL Routine 06/20/2025 12:03 PM EDT TOTAL PROTEIN, PLEURAL FLUID Routine 06/20/2025 12:03 PM EDT LACTATE DEHYDROGENASE, PLEURAL FLUID Routine 06/20/2025 12:03 PM EDT BODY FLUID, CYTOSPIN, PATHOLOGIST INTERPRETATION Routine 06/20/2025 12:03 PM EDT BODY FLUID CULTURE AND GRAM STAIN Routine 06/20/2025 12:03 PM EDT BODY FLUID CELL COUNT W/ MANUAL DIFFERENTIAL Routine 06/20/2025 11:59 AM EDT ALBUMIN, PERITONEAL FLUID Routine 06/20/2025 11:59 AM EDT BODY FLUID, CYTOSPIN, PATHOLOGIST INTERPRETATION Routine 06/20/2025 11:59 AM EDT TOTAL PROTEIN, PERITONEAL FLUID Routine 06/20/2025 11:59 AM EDT documented in this encounter Results * XR Chest 1 View (06/20/2025 1:38 PM EDT) Anatomical Region Laterality Modality Chest Digital Radiogra phy Impressions 06/20/2025 2:13 PM EDT No pneumothorax. Trace right pleural effusion. CRITICAL RESULT: No. COMMUNICATION: Per this written report. Preliminary report signed by Katlyn Aviles MD on 06/20/2025 1:57 PM By electronically signing this report, I, the attending physician, attest that I have personally reviewed the images/data for the above examination(s) and agree with the final edited report. Drafted by Katlyn Aviles MD on 06/20/2025 1:49 PM Final report signed by Bari Aguillon MD on 06/20/2025 2:13 PM Narrative 06/20/2025 2:13 PM EDT CLINICAL INDICATION: s/p right thora TECHNIQUE: XR CHEST 1 VIEW COMPARISON: Chest radiograph 06/13/2025 FINDINGS: Trace right pleural effusion. Mild pulmonary vascular congestion. No focal consolidation or overt edema. No pneumothorax. Stable cardiac silhouette and mediastinal contours. Procedure Note Bari Aguillon MD - 06/20/2025 CLINICAL INDICATION: s/p right thora TECHNIQUE: XR CHEST 1 VIEW COMPARISON: Chest radiograph 06/13/2025 FINDINGS: Trace right pleural effusion. Mild pulmonary vascular congestion. No focalconsolidation or overt edema. No pneumothorax. Stable cardiac silhouetteand mediastinal contours. IMPRESSION: No pneumothorax. Trace right pleural effusion. CRITICAL RESULT: No. COMMUNICATION: Per this written report. Preliminary report signed by Katlyn Aviles MD on 06/20/2025 1:57 PM By electronically signing this report, I, the attending physician, attestthat I have personally reviewed the images/data for the aboveexamination(s) and agree with the final edited report. Drafted by Katlyn Aviles MD on 06/20/2025 1:49 PM Final report signed by Bari Aguillon MD on 06/20/2025 2:13 PM us Preeti Andersen MARKETING INTELLIGENCE MANAGER IMG XR PROCEDURES Final Result * US Guided Abdominal Paracentesis (06/20/2025 12:32 PM EDT) Anatomical Region Laterality Modality Abdomen Ultrasound Impressions 06/23/2025 9:14 PM EDT Technically successful US-guided paracentesis. A total of 4.3 liters of clear yellow fluid was removed. A sample of the fluid was sent for laboratory analysis. Administered Albumin 37.5 g IV once post procedure CRITICAL RESULT: No. COMMUNICATION: Per this written report. Preliminary report signed by SOLANGE Hall on 06/22/2025 6:15 AM By electronically signing this report, I, the attending physician, attest that I was not present for the procedure(s) but agree with the final edited report. Drafted by SOLANGE Hall on 06/22/2025 6:12 AM Final report signed by Javier Oscar MD on 06/23/2025 9:14 PM Narrative 06/23/2025 9:14 PM EDT CLINICAL INDICATION: This is a 64 y.o. 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 TECHNIQUE: Filemaker Developer: ADRI Andersen Secondary Zinc Furnace Charger: None. Nurse: Padmini Technologist: Lilliana Phillips Dose: NA Medications: Continuous physiologic monitoring provided by a qualified healthcare professional. Administered: 1% Lidocaine SQ. Antibiotics: NA Time out: 1157 Procedure: After discussion of risks and benefits, [...] analgesia. Under real time US guidance, a 5 Fr centesis catheter was advanced into the ascites. Ultrasound images were sent to permanent storage in PACS. A total of 4.3 liters of clear yellow fluid was removed. The centesis catheter was removed and occlusive dressing applied. The patient tolerated the procedure well. The patient left the IR suite in stable condition. COMPARISON: None. FINDINGS: Moderate volume ascites. COMPLICATION: No. Procedure Note Javier Oscar MD - 06/23/2025 CLINICAL INDICATION: This is a 64 y.o. 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 TECHNIQUE: Filemaker Developer: ADRI Andersen Secondary Zinc Furnace Charger: None. Nurse: Padmini Technologist: Lilliana Phillips Dose: NA Medications: Continuous physiologic monitoring provided by a qualifiedhealthcare professional. Administered: 1% Lidocaine SQ. Antibiotics: NA Time out: 1157 Procedure: After discussion of risks and benefits, [...] localanalgesia. Under real time US guidance, a 5 Fr centesis catheter wasadvanced into the ascites. [facility]. A total of 4.3 liters of clear yellow fluid was removed.The centesis catheter was removed and occlusive dressing applied. The patient tolerated the procedure well. The patient left the IR suitein stable condition. COMPARISON: None. FINDINGS: Moderate volume ascites. COMPLICATION: No. IMPRESSION: Technically successful US-guided paracentesis. A total of 4.3 liters of clear yellow fluid was removed. A sample of the fluid was sent for laboratory analysis. Administered Albumin 37.5 g IV once post procedure CRITICAL RESULT: No. COMMUNICATION: Per this written report. Preliminary report signed by SOLANGE Hall on 06/22/2025 6:15AM By electronically signing this report, I, the attending physician, attestthat I was not present for the procedure(s) but agree with the finaledited report. Drafted by SOLANGE Hall on 06/22/2025 6:12 AM Final report signed by Javier Oscar MD on 06/23/2025 9:14 PM us Preeti Andersen MARKETING INTELLIGENCE MANAGER IMG US PROCEDURES Final Result * US Guided Thoracentesis (06/20/2025 12:32 PM EDT) Anatomical Region Laterality Modality Chest Ultrasound Impressions 06/23/2025 9:14 PM EDT Technically successful ultrasound guided thoracentesis. A total of 1.4 L of clear yellow fluid was removed. A sample of the fluid was sent for laboratory analysis. CRITICAL RESULT: No. COMMUNICATION: Per this written report. Preliminary report signed by SOLANGE Hall on 06/22/2025 6:19 AM By electronically signing this report, I, the attending physician, attest that I was not present for the procedure(s) but agree with the final edited report. Drafted by SOLANGE Hall on 06/22/2025 6:16 AM Final report signed by Javier Oscar MD on 06/23/2025 9:14 PM Narrative 06/23/2025 9:14 PM EDT CLINICAL INDICATION: This is a 64 y.o. 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 TECHNIQUE: Filemaker Developer: ADRI Andersen Secondary Zinc Furnace Charger: None. Nurse: Padmini Technologist: Lilliana Phillips Dose: NA Medications: Continuous physiologic monitoring provided by a qualified healthcare professional. Administered: 1% Lidocaine SQ. Antibiotics: NA Time out: 1157 Procedure: After discussion of risks and benefits, informed written consent was obtained. Appropriate time out was done to confirm patient identity and planned procedure. The patient was placed in left lateral decubitus position and initial limited right chest ultrasound scan [...] used for local analgesia. Under real time ultrasound guidance, a 5 Fr centesis catheter was advanced into the pleural fluid. Ultrasound images were sent to permanent storage in PACS. A total of 1.4 L of clear yellow fluid was removed. The needle was removed and occlusive dressing applied. The patient tolerated the procedure well. The patient left the IR suite in stable condition. COMPARISON: None. FINDINGS: Moderate right pleural fluid. COMPLICATION: No. Procedure Note Javier Oscar MD - 06/23/2025 CLINICAL INDICATION: This is a 64 y.o. 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 TECHNIQUE: Filemaker Developer: ADRI Andersen Secondary Zinc Furnace Charger: None. Nurse: Padmini Technologist: Lilliana Phillips Dose: NA Medications: Continuous physiologic monitoring provided by a qualifiedhealthcare professional. Administered: 1% Lidocaine SQ. Antibiotics: NA Time out: 1157 Procedure: After discussion of risks and benefits, informed written consent wasobtained. Appropriate time out was done to confirm patient identity andplanned procedure. The patient was placed in left lateral decubitusposition and initial limited right chest ultrasound scan [...] space. 1% lidocaine used for localanalgesia. Under real time ultrasound guidance, a 5 Fr centesis catheterwas advanced into the pleural fluid. Ultrasound images were sent topermanent storage in PACS. A total of 1.4 L of clear yellow fluid wasremoved. The needle was removed and occlusive dressing applied. The patient tolerated the procedure well. The patient left the IR suitein stable condition. COMPARISON: None. FINDINGS: Moderate right pleural fluid. COMPLICATION: No. IMPRESSION: Technically successful ultrasound guided thoracentesis. A total of 1.4 L of clear yellow fluid was removed. A sample of the fluid was sent for laboratory analysis. CRITICAL RESULT: No. COMMUNICATION: Per this written report. Preliminary report signed by SOLANGE Hall on 06/22/2025 6:19AM By electronically signing this report, I, the attending physician, attestthat I was not present for the procedure(s) but agree with the finaledited report. Drafted by SOLANGE Hall on 06/22/2025 6:16 AM Final report signed by Javier Oscar MD on 06/23/2025 9:14 PM us Marianna Gordon MARKETING INTELLIGENCE MANAGER IMG US PROCEDURES Final Resu lt * Body fluid, cytospin, pathologist interpretation (06/20/2025 12:03 PM EDT) Specimen Type Body Fluid LAB HEMATOLOGY METHOD 06/21/2025 4:37 PM EDT [facility] Specimen Source, Body Fluid Pleural, Right LAB HEMATOLOGY METHOD 06/21/2025 4:37 PM EDT [facility] Clinical Diagnosis, Body Fluid Pleural effusion LAB HEMATOLOGY METHOD 06/21/2025 4:37 PM EDT [facility] Interpretation , Body Fluid No evidence of malignancy Chronic inflammatory cells Lymphocytosis Moderate blood A resident was involved in the service. I attest I examined the relevant preparations for the specimens and confirmed the diagnosis or interpretation. 06/21/2025 4:37 PM EDT [facility] Pathologist Signature, Body Fluid 06/21/2025 4:37 PM EDT [facility] Comment:Reviewed by: Kadie dobbs MD LAB CP ASR DISCLAIMER Yes 06/21/2025 4:37 PM EDT [facility] Body Fluid Structure of right pleural cavity / Unknown Non-blood Collection / Unknown 06/20/2025 12:03 PM EDT 06/20/2025 2:44 PM EDT us Preeti Andersen MARKETING INTELLIGENCE MANAGER LAB BODY FLUIDS AND STO OLS ORDERABLES Final Result [facility] [address] [place] [address] * Lactate Dehydrogenase, Pleural Fluid - Right (06/20/2025 12:03 PM EDT) LDH, Fluid 57 U/L 06/20/2025 5:36 PM EDT [facility] Pleural Fluid Structure of right pleural cavity / Unknown Non-blood Collection / Unknown 06/20/2025 12:03 PM EDT 06/20/2025 2:44 PM EDT Narrative [facility] - 06/20/2025 5:36 PM EDT No established reference interval. Results should be interpreted in comparison to the concentration in blood and in conjunction with the clinical context. Pleural fluid LDH and total protein measurements are used for differentiation of exudates and transudates. Light's criteria can be used to identify most pleural exudative effusions if one or more of the following criteria are present: (1) pleural godrz-lp-aciol protein ratio of >0.5, (2) pleural evaok-xz-pvqud LDH ratio of >0.6, or (3) a pleural fluid LDH activity that is >2/3 the upper limit of a normal serum LDH activity. Light's criteria may misclassify ~25% of transudates as exudates in heart failure. These can be identified by calculating a dvtip-sn-sviowmf albumin gradient (>1.2 g/dL) and/or a mjrvz-ow-scocn protein gradient (>3.1 g/dL). Preeti Andersen APRN LAB BODY FLUIDS AND STO OLS ORDERABLES Final Result Performing Organization Address [facility]/ZIP Co de Phone Number [facility] [address] [place] [address] * Total Protein, Pleural Fluid - Pleural Right (06/20/2025 12:03 PM EDT) Total Protein, Fluid 1 g/dL 06/20/2025 5:36 PM EDT [facility] Pleural Fluid Structure of right pleural cavity / Unknown Non-blood Collection / Unknown 06/20/2025 12:03 PM EDT 06/20/2025 2:44 PM EDT Narrative [facility] - 06/20/2025 5:36 PM EDT This test was developed and its performance characteristics determined by [facility]. The U.S. Food and Drug Administration has not approved or cleared this test. However, FDA clearance or approval is not currently required for clinical use. The results are not intended to be used as the sole means for clinical diagnosis or patient management decisions. Preeti Andersen APRN LAB BODY FLUIDS AND STO OLS ORDERABLES Final Result Performing Organization Address City/[facility]/ZIP Co de Phone Number [facility] [address] [place] [address] * Body Fluid Culture and Gram Stain - Pleural Right (06/20/2025 12:03 PM EDT) Culture No growth at day 4 2024 10:34 AM EDT [facility] Gram Stain Result No organisms seen 06/23/2025 10:34 AM EDT [facility] Gram Stain Result No polymorphonuclear leukocytes seen 06/23/2025 10:34 AM EDT [facility] Pleural Fluid Specimen from pleura obtained by thoracentesis / Unknown Non-blood Collection / Unknown 06/20/2025 12:03 PM EDT 06/20/2025 2:53 PM EDT us Preeti Andersen APRN LAB MICROBIOLOGY - GENE RAL ORDERABLES Final Result [facility] [address] [place] [address] * (ABNORMAL) Body Fluid Cell Count w/ Diff - Pleural Right (06/20/2025 12:03 PM EDT) Color, Body fluid Red LAB HEMATOLOGY METHOD 06/20/2025 8:20 PM EDT [facility] Appearance, Body fluid Cloudy(A) LAB HEMATOLOGY METHOD 06/20/2025 8:20 PM EDT [facility] Volume, Body fluid 5.8 cc LAB HEMATOLOGY METHOD 06/20/2025 8:20 PM EDT [facility] Fluid Container Tube 2 LAB HEMATOLOGY METHOD 06/20/2025 8:20 PM EDT [facility] Red Blood Cell Count, Body fluid 18,000 uL LAB HEMATOLOGY METHOD 06/20/2025 8:20 PM EDT [facility] Total Nucleated Cell Count, Body fluid 204 uL LAB HEMATOLOGY METHOD 06/20/2025 8:20 PM EDT [facility] Neutrophils %, Body fluid 0 % LAB HEMATOLOGY METHOD 06/20/2025 8:20 PM EDT [facility] Lymphocytes %, Body fluid 91 % LAB HEMATOLOGY METHOD 06/20/2025 8:20 PM EDT [facility] Monocytes/Macro phages %, Body fluid 6 % LAB HEMATOLOGY METHOD 06/20/2025 8:20 PM EDT [facility] Eosinophils %, Body fluid 1 % LAB HEMATOLOGY METHOD 06/20/2025 8:20 PM EDT [facility] Lining/Mesothel ial Cells %, Body fluid 2 % LAB HEMATOLOGY METHOD 06/20/2025 8:20 PM EDT [facility] Neutrophils Absolute (PMN), Body fluid 0 uL LAB HEMATOLOGY METHOD 06/20/2025 8:20 PM EDT [facility] Lymphocytes Absolute, Body fluid 186 uL LAB HEMATOLOGY METHOD 06/20/2025 8:20 PM EDT [facility] Monocytes/Macro phages Absolute, Body fluid 12 uL LAB HEMATOLOGY METHOD 06/20/2025 8:20 PM EDT [facility] Eosinophils Absolute, Body fluid 2 uL LAB HEMATOLOGY METHOD 06/20/2025 8:20 PM EDT [facility] Basophils Absolute, Body fluid 0 uL LAB HEMATOLOGY METHOD 06/20/2025 8:20 PM EDT [facility] Lining/Mesothel ial Cells Absolute, Body fluid 4 uL LAB HEMATOLOGY METHOD 06/20/2025 8:20 PM EDT [facility] Basophils %, Body fluid 0 % LAB HEMATOLOGY METHOD 06/20/2025 8:20 PM EDT [facility] Body Fluid Structure of right pleural cavity / Unknown Non-blood Collection / Unknown 06/20/2025 12:03 PM EDT 06/20/2025 2:44 PM EDT us Preeti Andersen APRN LAB BODY FLUIDS AND STOOLS ORDERABLES NO SPECIMEN TYPE/SOURCE Final Result [facility] [address] [place] [address] * Body fluid, cytospin, pathologist interpretation (06/20/2025 11:59 AM EDT) Specimen Type Body Fluid LAB HEMATOLOGY METHOD 06/21/2025 4:36 PM EDT [facility] Specimen Source, Body Fluid Peritoneal Fluid LAB HEMATOLOGY METHOD 06/21/2025 4:36 PM EDT [facility] Clinical Diagnosis, Body Fluid Ascites LAB HEMATOLOGY METHOD 06/21/2025 4:36 PM EDT [facility] Interpretation , Body Fluid No evidence of malignancy Chronic inflammatory cells Lymphocytosis Reactive mesothelial cells Moderate blood 06/21/2025 4:36 PM EDT [facility] Pathologist Signature, Body Fluid 06/21/2025 4:36 PM EDT [facility] Comment:Reviewed by: Kadie dobbs MD LAB CP ASR DISCLAIMER No 06/21/2025 4:36 PM EDT [facility] Body Fluid Peritoneal fluid / Unknown Non-blood Collection / Unknown 06/20/2025 11:59 AM EDT 06/20/2025 2:04 PM EDT Preeti Andersen APRN LAB BODY FLUIDS AND STO OLS ORDERABLES Final Result Performing Organization Address [facility] de Phone Number [facility] [address] [place] [address] * Protein - Ascites (06/20/2025 11:59 AM EDT) Total Protein, Fluid 0.7 g/dL 06/20/2025 4:25 PM EDT [facility] Peritoneal Fluid Peritoneal cavity structure / Unknown Non-blood Collection / Unknown 06/20/2025 11:59 AM EDT 06/20/2025 2:42 PM EDT Narrative [facility] - 06/20/2025 4:25 PM EDT This test was developed and its performance characteristics determined by [facility]. The U.S. Food and Drug Administration has not approved or cleared this test. However, FDA clearance or approval is not currently required for clinical use. The results are not intended to be used as the sole means for clinical diagnosis or patient management decisions. Preeti Andersen APRN LAB BODY FLUIDS AND STO OLS ORDERABLES Final Result Performing Organization Address [facility] Co de Phone Number [address] [address] * Albumin - Ascites (06/20/2025 11:59 AM EDT) Albumin, Peritoneal Fluid 0.4 g/dL 06/20/2025 4:25 PM EDT [facility] Peritoneal Fluid Peritoneal cavity structure / Unknown Non-blood Collection / Unknown 06/20/2025 11:59 AM EDT 06/20/2025 2:42 PM EDT Narrative [facility] - 06/20/2025 4:25 PM EDT REPORTING RESULTS Reference Values: No established reference interval. Results should be interpreted in comparison to the concentration in blood and in conjunction with the clinical context. This test was developed and its performance characteristics determined by [facility]. The U.S. Food and Drug Administration has not approved or cleared this test; however, FDA clearance or approval is not currently required for clinical use. The results are not intended to be used as the sole means for clinical diagnosis or patient management decisions. Preeti Andersen APRN LAB BODY FLUIDS AND STO OLS ORDERABLES Final Result [facility] [address] [place] [address] * Body Fluid Cell Count With Diff - Ascites (06/20/2025 11:59 AM EDT) Color, Body fluid [place] LAB HEMATOLOGY METHOD 06/20/2025 8:13 PM EDT [facility] Comment:Previously prelim ve rified as Red on 06/20/2025 at 1944 EDT. Appearance, Body fluid Clear LAB HEMATOLOGY METHOD 06/20/2025 8:13 PM EDT [facility] Comment:Previously prelim ve rified as Cloudy on 06/20/2025 at 1944 EDT. Volume, Body fluid 15.0 cc LAB HEMATOLOGY METHOD 06/20/2025 8:13 PM EDT [facility] Comment:Previously prelim ve rified as 5.8 cc on 06/20/2025 at 1944 EDT. Fluid Container Specimen received in miscellaneous container LAB HEMATOLOGY METHOD 06/20/2025 8:13 PM EDT [facility] Comment:Corrected result: Pr eviously reported as Tube 2 on 06/20/2025 at 1944 EDT. Red Blood Cell Count, Body fluid 13,000 uL LAB HEMATOLOGY METHOD 06/20/2025 8:13 PM EDT [facility] Total Nucleated Cell Count, Body fluid 164 uL LAB HEMATOLOGY METHOD 06/20/2025 8:13 PM EDT [facility] Neutrophils %, Body fluid 0 % LAB HEMATOLOGY METHOD 06/20/2025 8:13 PM EDT [facility] Lymphocytes %, Body fluid 91 % LAB HEMATOLOGY METHOD 06/20/2025 8:13 PM EDT [facility] Monocytes/Macr ophages %, Body fluid 9 % LAB HEMATOLOGY METHOD 06/20/2025 8:13 PM EDT [facility] Eosinophils %, Body fluid 0 % LAB HEMATOLOGY METHOD 06/20/2025 8:13 PM EDT [facility] Lining/Mesothe lial Cells %, Body fluid 0 % LAB HEMATOLOGY METHOD 06/20/2025 8:13 PM EDT [facility] Neutrophils Absolute (PMN), Body fluid 0 uL LAB HEMATOLOGY METHOD 06/20/2025 8:13 PM EDT [facility] Lymphocytes Absolute, Body fluid 149 uL LAB HEMATOLOGY METHOD 06/20/2025 8:13 PM EDT [facility] Monocytes/Macr ophages Absolute, Body fluid 15 uL LAB HEMATOLOGY METHOD 06/20/2025 8:13 PM EDT [facility] Eosinophils Absolute, Body fluid 0 uL LAB HEMATOLOGY METHOD 06/20/2025 8:13 PM EDT [facility] Basophils Absolute, Body fluid 0 uL LAB HEMATOLOGY METHOD 06/20/2025 8:13 PM EDT [facility] Lining/Mesothe lial Cells Absolute, Body fluid 0 uL LAB HEMATOLOGY METHOD 06/20/2025 8:13 PM EDT [facility] Basophils %, Body fluid 0 % LAB HEMATOLOGY METHOD 06/20/2025 8:13 PM EDT [facility] Body Fluid Peritoneal fluid / Unknown Non-blood Collection / Unknown 06/20/2025 11:59 AM EDT 06/20/2025 2:04 PM EDT Preeti Andersen APRN LAB BODY FLUIDS AND STOOLS ORDERABLES NO SPECIMEN TYPE/SOURCE Final Result [facility] [address] [place] [address] documented in this encounter Visit Diagnoses Diagnosis Other ascites documented in this encounter Administered Medications Inactive Administered Medications - up to 3 most recent administrations Medication Order MAR Action Action Date Dose Rate Site albumin human 25 % infusion 37.5 g 37.5 g, Intravenous, Once as needed, 1 dose, Starting on Sarahi 06/20/25 at 1047, Until Sarahi 06/20/25 at 1128, Routine, Intraprocedure, For 5-6.9 L drained New Bag 06/20/2025 11:28 AM EDT 37.5 g lidocaine 0.9% in sodium bicarbonate (buffered lidocaine) solution solution As needed, Starting on Sarahi 06/20/25 at 1107, Until Sarahi 06/20/25 at 1158, Routine, Intraprocedure Given 06/20/2025 11:58 AM EDT 10 mL Given 06/20/2025 11:07 AM EDT 10 mL documented in this encounter Additional Health Concerns Assessment Noted Time PHQ-9 Depression Total Score: 6 06/11/20 10:59 AM EDT A fall risk assessment has been complete d for the patient 06/11/2025 10:59 AM EDT A Body Mass Index follow-up plan has been documented for the patient 06/20/2025 2:10 PM EDT documented as of this encounter Care Teams Vice President Diversity Relationship Specialty Start Date End Date Alvarez Zimmer MD [address] [place] [id number] PCP - General Family Medicine 12/07/24 Lea Fernando [address] [place] [address] Councilperson Endocrinology 08/29/24 Rachel Ray APRN [address] [place] [address] Nurse Practitioner Gastroenterology 09/24/24 Tamera Isabel LPN VALUE-BASED TRANSFORMATION PROGRAM Licensed Practical Nurse 05/29/25 documented as of this encounter
--- OUTSIDE RECORDS SUMMARY | 2025-06-20 13:04 | XMS_ITS | Encounter Summary ---
Author Organization [facility] Address [address] [place] [address] Care Team Providers Care Environmental Designer Name Role Phone Lea Fernando Unavailable [phone] Rcahel Ray AUTOCAD ELECTRICAL DESIGNER Unavailable [phone] Alvarez Zimmer MD Primary Care Provider [phone] Tamera Isabel FLOOR SERVICE WORKER [place] Unavailable Unavailabl e Encounter Details Date Type Department Care Team (Latest Contact Info) Description 06/20/2025 1:04 PM EDT - 06/20/2025 11:59 PM EDT Hospital Encounter [facility] Radiology [address] [place] [address] Discharge Disposition: Home or Self Care Social [...] week 01/10/2025 How often do you attend [facility] or protestant services? Patient unable to answer 01/10/2025 Do you belong to any clubs o r organizations such as gnosticist groups, unions, fraternal or athletic groups, or [...] How often do you attend chur or protestant services? Never 05/29/2025 Do you belong to any clubs o r organizations such as gnosticist groups, unions, fraternal or athletic groups, or [...] more drinks on one occasion? Never 06/05/2025 [facility] Occupat ional Health - Occupational [...] drink first t kennedy in the morning (EYE-O AND M SUPERVISOR) to steady your nerves or to get rid of a hangover? 0 10/22/2024 CAGE Questionnaire Score 0 024 Utilities Answer Date Recorded In the past 12 months has th e [employer], gas, oil, or water company threatened to [...] MINI PEN NEEDLES 31G X 5 MM [facility] 04/22/2025 5 B-D ULTRAFINE III SHORT PEN 31G X 8 MM [facility] 01/14/2025 5 Blood Glucose Monitoring Suppl (Blood [...] 04/17/2025 5 ergocalciferol (Vitamin D-2) 1.25 MG (75532 UT) capsuleIndications: Vitamin D deficiency Take 1 [...] Description 08/20/2025 9:30 AM EDT Clinical Support [facility] [place] [address] [facility] [address] [place] [address] 08/20/2025 10:30 AM EDT Social Work [facility] [place] [address] [facility] [place] [address] [place] [address] 08/20/2025 11:00 AM EDT Office Visit [facility] [address] [facility] [place] [address] Jude Duque MD [address] [facility] [address] [place] [address] 08/22/2025 11:15 AM EDT Appointment [facility] Interventional Radiology [address] [place] [address] 08/22/2025 12:15 PM EDT Appointment [facility] Interventional Radiology [address] [place] [address] 08/26/2025 1:00 PM EDT Office Visit [facility] Endocrinology [address] [place] [address] Miranda Hobson P, AUTOCAD ELECTRICAL DESIGNER [address] [place] [address] 08/29/2025 10:00 AM EDT Appointment [facility] Interventional Radiology [address] [place] [address] 08/29/2025 11:00 AM EDT Appointment [facility]iology [address] [place] [address] 09/05/2025 10:00 AM EDT Appointment [facility] [address] [place] [address] 09/05/2025 11:00 AM EDT Appointment [facility] Inter[facility] Radiology [address] [place] [address] documented as of this encounter Procedures Procedure [...] MD on 06/20/2025 2:13 PM Preeti Andersen AUTOCAD ELECTRICAL DESIGNER IMG XR PROCEDURES Final Result documented in [...] documented as of this encounter Care Teams Environmental Designer Relationship Specialty Start Date End Date Alvarez Zimmer MD [address] [place] [address] PCP - General Family Medicine 12/07/24 Lea Fernando [address] [place] [address] Operations Inspector Endocrinology 08/29/24 Rachel Ray APRN [address] [place] [address] Nurse Practitioner Gastroenterology 09/24/24 Tamera Isabel LPN VALUE-BASED TRANSFORMATION PROGRAM Licensed Practical Nurse 05/29/25 documented as of this encounter
--- OUTSIDE RECORDS SUMMARY | 2025-06-25 13:00 | XMS_ITS | Encounter Summary ---
Author Organization Healthcare Address [address] [place] [address] Care Team Providers Care Trim And Burr Operator Name Role Phone eLa Fernando Unavailable [phone] Rachel Ray DATA ANALYTICS DEVELOPER Unavailable [phone] Alvarez Zimmer MD Primary Care Provider [phone] Tamera Isabel MAINTENANCE JOURNEYMAN Unavailable Unavailabl e Reason for Visit * Reason Comments Consult * Auth/Cert (Routine) Specialty Diagnoses / Procedures Referred By Contac t Referred To Contact Diagnoses CARLOTTA (acute kidney injury) Chilo Loyola MD [address] [facility] [address] [place] [address] Phone: tel: fax: P[facility] S Inpatient [address] [place] [address] Phone: tel: Referral ID Status Reason Start Date Expiration Date Visits Re quested Visits Authorized [id number] 1 1 Encounter Details Date Type Department Care Team (Late st Contact Info) Description 06/25/2025 1:00 PM EDT Office Visit [facility] [address], [address] [place] [address] Arnulfo Joy MD [address] [place] [phone] Cirrhosis of liver with ascites, unspecified hepatic [...] do you attend [facility]? Patient unable to answer [...] more drinks on one occasion? Never 06/25/2025 [facility] - Occupational Stress Questionnaire Answer Date [...] living in a alf (including now)? No 06/26/2025 CAGE ASSESSMENT Answer [...] first t kennedy in the morning (EYE-MANAGER SOLAR) to steady your nerves or to get rid of a hangover? 0 06/25/2025 CAGE Questionnaire Score 0 025 Utilities Answer Date Recorded In the past 12 months has th e [employer], gas, oil, or water [email or web address] threatened to shut off services in your [...] [place] [phone], Crisel[facility] at [facility], PT left with [facility] [...] 09/20/2019 Added automatically from request for surgery [id number] Coronary artery disease Depression 1995 Diabetes mellitus [...] BLADDER SURGERY; N/A Comment: Bladder surgery from [employer] 2011: BREAST BIOPSY 2010: BREAST SURGERY No date: BUNIONECTOMY; Right 2016: CATARACT EXTRACTION; Bilateral 1979: CHOLECYSTECTOMY No date: ESOPHAGOGASTRODUODENOSCOPY No date: HYSTERECTOMY; N/A Comment: Hysterectomy from [employer] No date: KNEE SURGERY; Bilateral No date: ORAL SURGERY; N/A Comment: Oral surgery from [employer] 2015: OTHER SURGICAL HISTORY No date: ROOT CANAL No date: WISDOM TOOTH EXTRACTION Current Medications[2] as of 06/25/2025 1:52 PM Current Outpatient Medications: Abaloparatide (Tymlos) 3120 MCG/1.56ML solution pen-injector, Inject 80 mcg under the skin daily., Disp: 1.56 mL, Rfl: 2 B-D UF III MINI PEN NEEDLES 31G X 5 MM [facility], , Disp: , Rfl: [...] Rfl: 1 ergocalciferol (Vitamin D-2) 1.25 MG (50132 UT) capsule, Take 1 capsule by mouth [...] her case with care providers at the [facility] and they are anticipating her arrival. - [...] in urine Cataract Chronic kidney disease Cirrhosis ([facility]/HCC) Colon cancer screening 09/20/2019 Added automatically from request for surgery [id number] Coronary artery disease Depression 1996 Diabetes mellitus type 2 in obese 04/22/2015 Diabetic nephropathy ([facility]) Dry mouth GERD (gastroesophageal reflux disease) Headache [...] MINI PEN NEEDLES 31G X 5 MM [facility], , Disp: , Rfl: [...] Rfl: 1 ergocalciferol (Vitamin D-2) 1.25 MG (09259 UT) capsule, Take 1 capsule by mouth [...] Description 08/20/2025 9:30 AM EDT Clinical Support [facility] [address] [address] 08/20/2025 10:30 AM EDT Social Work [facility] [address] [address] [place] [address] 08/20/2025 11:00 AM EDT Office Visit [facility] [address] [place] [phone] Jude Duque MD [address] [place] [address] 08/22/2025 11:15 AM EDT Appointment [facility] Inter[facility] Radiology [address] [place] [address] 08/22/2025 12:15 PM EDT Appointment [facility] [address] [place] [address] 08/26/2025 1:00 PM EDT Office Visit [facility]ology [address] [place] [address] Miranda Hobson, DATA ANALYTICS DEVELOPER [address] [facility] [address] [place] [phone] 08/29/2025 10:00 AM EDT Appointment [facility] [address] [place] [address] 08/29/2025 11:00 AM EDT Appointment [facility] [address] [place] [address] 09/05/2025 10:00 AM EDT Appointment [facility] [address] [place] [address] 09/05/2025 11:00 AM EDT Appointment [facility] [address] [place] [address] documented as of this encounter Visit Diagnoses [...] documented as of this encounter Care Teams Trim And Burr Operator Relationship Specialty Start Date End Date Alvarez Zimmer MD [address] [place] [address] PCP - General Family Medicine 12/07/24 Lea Fernando [address] [place] [address] [employer] [facility] 08/29/24 Rachel Ray, DATA ANALYTICS DEVELOPER [address] [place] [address] Nurse Practitioner Gastroenterology 09/24/24 Tamera Isabel, MAINTENANCE JOURNEYMAN VALUE-BASED TRANSFORMATION PROGRAM Licensed Practical Nurse 05/29/25 documented as of this encounter
--- OUTSIDE RECORDS SUMMARY | 2025-06-25 14:14 | XMS_ITS | Encounter Summary ---
Author Organization [facility] Address [address] [place] [address] Care Team Providers Care Meter Calibrator Name Role Phone Lea Fernando Unavailable [phone] Rachel Ray [employer] Unavailable [phone] Alvarez Ordaz MD Primary Care Provider [phone] Tamera Isabel PRACTICAL NURSE CLINICAL COORDINATOR Unavailable Unavailabl Alina Jennings RN Unavailable Unavailab le Reason for Referral * Consultation (Routine) - Authorized Specialty Diagnoses / Procedures Referred By Contac t Referred To Contact Family Medicine Diagnoses CARLOTTA (acute kidney injury) Kayla Reed MD [address] [facility] [address] [place] [address] Phone: tel: fax: Referral ID Status Reason Start Date Expiration Date Visits Requested Visits Authorized [id number] Authorized Specialty Services Required 07/09/2025 01/08/2027 1 1 * Imaging (Routine) - Closed Specialty Diagnoses / Procedures Referred By Contac t Referred To Contact Radiology Diagnoses Other ascites Alcoholic cirrhosis of liver with ascites Procedures US Guided Abdominal Paracentesis Marianna Gordon, [employer] [address] [place] [address] Phone: tel: fax: Referral ID Status Reason Start Date Expiration Date Visits Re quested Visits Authorized [id number] Closed 06/14/2025 12/14/2026 1 1 * Imaging (Routine) - Closed Specialty Diagnoses / Procedures Referred By Contac audra Referred To Contact Radiology Diagnoses Pleural effusion Shortness of breath Procedures US Guided Thoracentesis Marianna Gordon APRN [address] [place] [address] Phone: tel: fax: Referral ID Status Reason Start Date Expiration Date Visits Re quested Visits Authorized [id number] Closed 06/14/2025 12/14/2026 1 1 Reason for Visit * Reason Comments Abnormal Lab Creatinine mentioned by PT. * Auth/Cert (Routine) Specialty Diagnoses / Procedures Referred By Eder zhu Referred To Contact Diagnoses CARLOTTA (acute kidney injury) Chilo Morales MD [address] [place] [id number] Phone: tel: fax: [facility] Inpatient [address] [place] [address] Phone: tel: Referral ID Status Reason Start Date Expiration Date Visits Re quested Visits Authorized [id number] 1 1 Encounter Details Date Type Department Care Team (Late st Contact Info) Description 06/25/2025 2:14 PM EDT - 07/09/2025 1:19 PM EDT Hospital Encounter [facility] [address] [place] [address] Kadie Mauro MD [address] [place] [address] Chilo Morales MD [address] [address] Fabiana Cunningham MD [address] [facility] [address] [place] [address] Kayla Reed MD [address] [address] CARLOTTA (acute kidney injury) (CMS/HCC) (Primary [...] do you attend [facility] or faith services? Patient unable to answer [...] How often do you attend chur or faith services? Never 05/29/2025 Do you belong to [...] more drinks on one occasion? Never 06/25/2025 [facility] Occupational Stress Questionnaire [...] living in a [facility] (including now)? No 06/26/2025 CAGE ASSESSMENT Answer [...] drink first t kennedy in the morning (EYE-MEDICAL PHYSICS RESEARCHER) to steady your nerves or to get rid of a hangover? 0 06/25/2025 CAGE Questionnaire Score 0 025 Utilities Answer Date Recorded In the past 12 months has th e electric, gas, oil, or water [employer] threatened to shut off services in your [...] Date of Assessment Author No Risk Indicated 08/08/2025 10:00 AM EDT Mariam Pedraza RN * Question Answer Date of Assessment Author 1. Wish to be (Past 1 Month) No 08/08/2025 10:00 AM EDT Mariam Thomas RN 2. Non-Specific Active Suici liz Thoughts (Past 1 Month) No 08/08/2025 10:00 AM EDT Bay Thomas RN 6. Suicidal Behavior (Lifetime) No 10:00 AM EDT Mariam Thomas RN documented as of this encounter Discharge [...] 1 03/01/2025 ergocalciferol (Vitamin D-2) 1.25 MG (57325 UT) capsuleIndication s:Vitamin D deficiency Take 1 [...] nausea or vomiting. 60 tablet 2 07/09/2025 5 rifAXIMin (Xifaxan) 550 MG tabletIndications :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 60 tablet 11 06/03/2025 6 senna (Senokot) 8.6 MG tablet Take 1 [...] within 12 hours or as directed by . 07/09/2025 documented as of this encounter Miscellaneous Notes * Progress Notes - Venessa Brown - 07/09/2025 1:19 PM EDT Case Management Discharge Note Monika Ordaz 64 y.o. female CSN: [id number] Admission: 06/25/2025 2:14 PM Primary Problem: Cirrhosis of liver with ascites (CMS/HCC) Primary License Issuer: Primary Caregiver: Self Assistance Available at Discharge: Current Outpatient/Agency/Support Group: DME, fpc facility Availability of Care Givers (#Hours): 24 hours Family/License Issuer(s) Willingness Assessed to care for patient at home: Yes Family/License Issuer(s) Readiness Assessed to care for patient at home: Yes Housing Circumstances-Z Codes: Housing Circumstances (select all that apply): Low Income (101-300% Federal Poverty Guidlines) - Z596 Discharge Facility/Level of Care Needs: Discharge Facility/Level of Care Needs: 3-Long Term Facility Patient/Family Anticipated Services at Transition: Patient/Family Anticipated Services at Transition: fpc DME/Equipment Needed after Discharge: Equipment Currently Used at Home: walker, rollator, Cpap Medicare Documentation: Medicare Second Notice?: Yes Date Second Notice Completed: 07/09/25 Time Second Notice Completed: 841 Medicare Second Notice Recieved By: patient Follow-up: Alvarez Ordaz [place] [id number] Discharge Transportation: Transportation Anticipated: family or friend [...] ready for discharge. Pt was discharged to [facility] in [place] for SNF/LTC. Pts was transported to the facility by [employer]. SW sent the discharge summary and bedside nurse called report prior to discharge. Venessa Brown * Care Plan - Mariam Gonzalez RN - 07/09/2025 10:08 AM EDT Problem: Fall Injury Risk Goal: Absence of Fall and Fall-Related Injury Outcome: Ongoing, Progressing Intervention: Identify and Manage Contributors Flowsheets (Taken 07/09/2025 08) Medication Review/Management: medications reviewed Intervention: Promote Injury-Free Environment Flowsheets (Taken 07/09/2025 08) Safety Promotion/Fall Prevention: activity supervised Problem: Skin Injury Risk Increased Goal: Skin Health and Integrity Outcome: Ongoing, Progressing Intervention: Optimize Skin Protection Flowsheets (Taken 07/09/2025 08) Activity Management: activity adjusted per tolerance Intervention: Promote and Optimize Oral Intake Flowsheets (Taken 07/09/2025 08) Oral Nutrition Promotion: rest periods promoted Problem: Adult Inpatient Plan of Care Goal: Plan of Care Review Outcome: Ongoing, Progressing Flowsheets Taken 07/09/2025 1007 Progress: no change Plan of Care Reviewed With: patient Taken 07/07/2025 9414 Outcome Evaluation: pt will partcipate in plan [...] Ongoing, Progressing Intervention: Promote Activity and Functional Worth Flowsheets (Taken 07/09/2025 0800) Activity Assistance Provided: assistance, stand-by * Consults - Yudith Coates RD - 07/09/2025 9:38 AM EDT Adult Nutrition Evaluation Note Monika Ordaz 64 y.o. female CSN: [id number] Room/Bed 723/723A Nutrition evaluation type: follow-up Reason for evaluation: provider consult Hospital course: 64y/o female admitted 06/25 for CARLOTTA on CKD and inability to care for herself. S/p paracentesis and thoracentesis on 07/04. Past medical/ surgical history: Past Medical History[1] Surgical History[2] Social history: None, no faith needs Additional comments: 07/09: Pt seen at bedside. Reported tolerating PO as best as she can given limited appetite r/t cirrhosis with ascites. Pt has tried Boost supplements but does not enjoy them as she does not like the mouthfeel of the original supplements nor does she enjoy the flavors of Boost Breeze. Pt voiced some anxiety about discharging to shelter today. Encouraged pt to eat in the dining room with otherresidents, ask about food items that are offered so she may find items she likes and tolerates, anddiscussed that the shelter may have supplements like Magic Cups that the pt may find more favorable. Diet Education Provided: Yes (07/03: diet edu for CKD, cirrhosis, DM) Vitals and Basic Assessment: BP: 103/61 Temp: 36.8 ??C (98.2 ??F) Oxygen Therapy: None (Room air) O2 Delivery Method: CPAP/Bi-PAP mask Molino Coma Scale Score: 15 Edd Scale Score: [...] (Calculated): 29.57 Weight Evaluation: Overweight (BMI 25-29.9) Hope Body Weight (kg): 56.8 Percent Hope Body Weight: 142 Adjusted Body Weight (kg): [...] oz) Estimated Needs: Kcal/ K-35 Kcal Provided: 1823-9603 Kcal Needs Based On: Adjusted weight (63 kg) Gm Protein/ Kg : 1.2-1.5 Protein Provided: 76-95 Protein Needs Based On: Adjusted weight (63 kg) Fluid Provided: 1 ml/kcal or per MD team Metabolic Cart Study Results: Current Nutrition Intake: Diet Supplements: Boost Breeze Diet Order: Adult Diet Diet Texture: Regular Adult Carbohydrate Restriction: Consistent CHO 2 (8553-5514 Deniz, 80 g/meal) Adult Sodium Restriction: 2,000 [...] continue) Acuity Level: 10 day x1 Yudith Asad Coates, RD, LD, MS [1] Past Medical History: Diagnosis Date ADHD (attention deficit hyperactivity disorder) Allergic Anxiety disorder, unspecified Anxiety Bleeding gums Blood in urine Cataract Chronic kidney disease Cirrhosis (CMS/HCC) Colon cancer screening 09/20/2019 Added automatically from request for surgery [id number] Coronary artery disease Depression 1995 Diabetes mellitus type 2 in obese 04/22/2015 Diabetic nephropathy ([facility]) Dry mouth Epigastric pain 08/02/2019 ETD (eustachian tube dysfunction) 07/13/2018 GERD (gastroesophageal reflux disease) Headache Heart murmur Hepatic encephalopathy ([facility]/HCC) 10/14/2024 HL (hearing loss) Hypoparathyroidism Inflammatory bowel [...] 1979 BLADDER SURGERY N/A Bladder surgery from [facility] BREAST BIOPSY 2011 BREAST SURGERY 2010 BUNIONECTOMY Right CATARACT EXTRACTION Bilateral 2016 CHOLECYSTECTOMY 1979 ESOPHAGOGASTRODUODENOSCOPY HYSTERECTOMY N/A Hysterectomy from [facility] KNEE SURGERY Bilateral ORAL SURGERY N/A Oral surgery from [facility] OTHER SURGICAL HISTORY 2014 ROOT CANAL WISDOM [...] capsule 2 ergocalciferol (Vitamin D-2) 1.25 MG (90376 UT) capsule Take 1 capsule by mouth [...] PCP name and Address: Alvarez Ordaz MD [address] / [place] [address] Referring provider name and address: No referring [...] to care for self. On arrival to [facility], patient promptly evaluated by FM Team. Three [...] vit D 1000 U was continued. Weekly 15477 vit D was not resumed during hospital [...] off oftransplant list in favor of pursuing intermodal customer service care placement. MELD improved to 21. #Other neutropenia #Pancytopenia Baseline WBC is 4.0 and baseline RBC was 3.0. Most recent WBC was 3.24 with 1.84 absolute neutrophils and most recent RBC was 2.67. Labs were monitored throughout the patient's hospital stay. [id number] was initiated for DVT prophylaxis. Blood smear [...] patient was amenable to going to a fpc facility. 06/28, patient had an episode of [...] nephrology appointment due to concern for CARLOTTA. DIVERSITY MANAGER consult ordered. DIVERSITY MANAGER saw patient and determined no overt s/s [...] mouth in the morning. ergocalciferol 1.25 MG (38010 UT) capsule Commonly known as: Vitamin D-2 [...] Your Medications These medications were sent to [facility] [place], [place] - 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 Discharge Disposition/Condition Disposition: SNF at [facility] Condition: Stable (s/sx potential problems absent or manageable) I spent >30 minutes of patient care and instruction time in preparation for this discharge. Juliane Rodriguez, MS4 Cosigned by Kayla Reed MD at 07/09/2025 12:26 PM EDT Associated attestation - Kayla Reed MD - 07/09/2025 12:26 PM EDT I saw and evaluated the patient with the medical/HAND INSPECTOR/PA student. I discussed the case with the medical/HAND INSPECTOR/PA student and agree with the findings and [...] Ongoing, Progressing Intervention: Promote Activity and Functional Worth Flowsheets (Taken 07/08/20251999) Activity Assistance Provided: assistance, stand-by Self-Care Promotion: independence encouraged * Progress Notes - Krista Brand - 07/08/2025 2:45 PM EDT Music Therapy Note Session Information: Missed Opportunity: Yes Missed Opportunity Reason: Patient unavailable Comments: Pt using the bathroom. Plan of Care: Will return at a later time. * ACP (Advance Care Planning) - Anthony Holguin, ADRI, ANGELLA - 07/08/2025 2:27 PM EDT Advance [...] Directive/Living Will: Yes Health Care Power of Billboard Installer: No Communication of Medical Status/Prognosis: Ms. Ordaz verified that she has completed advance directive designating her healthcare surrogates with the social services manager. She is pending placement in nursing facility and I recommended consideration of completion of MOST form to outline her medical wishes should she become ill at the facility. MOSTform completed as below. As part of completion of MOST form I addressed code status. Ms. Ordaz states she would want to undergo resuscitation if it brought her back to living . I informed Ms. Ordaz that in my medical opinion CPR would likely leave her in a more debilitated state and she would be unlikely to return to her current clinical and functional status. She was in agreement with DNR ok to in tubate status. Communication of Treatment Goals/Options: MOST form [...] 1:55 PM EDTAssociated Problem(s): Serum ammonia increased ([facility]) - Ammonia 146 PLAN - Increase home Lactulose to 30 g TID - Recheck ammonia if neurologic change suspected * Care Plan - Mariam Gonzalez RN - 07/08/2025 11:27 AM EDT Problem: Fall Injury Risk Goal: Absence of Fall and Fall-Related Injury Outcome: Ongoing, Progressing Intervention: Identify and Manage Contributors Flowsheets (Taken 07/08/2025799) Medication Review/Management: medications reviewed Self-Care Promotion: independence encouraged Intervention: Promote Injury-Free Environment Flowsheets (Taken 07/08/2025799) Safety Promotion/Fall Prevention: activity supervised Problem: Skin Injury Risk Increased Goal: Skin Health and Integrity Outcome: Ongoing, Progressing Intervention: Optimize Skin Protection Flowsheets (Taken 07/08/2025799) Activity Management: activity adjusted per tolerance Intervention: Promote and Optimize Oral Intake Flowsheets Taken 07/08/20251124 Nutrition Interventions: diet adjusted supplemental foods provided [...] Fears or Concerns: sad about going to shelter Goal: Absence of Hospital-Acquired Illness or Injury [...] MAR) Intervention: Provide Person-Centered Care Flowsheets (Taken 07/08/2025799) Trust Relationship/Rapport: care explained Problem: Acute Kidney [...] Intervention: Optimize Functional Ability Flowsheets (Taken 07/08/2025 0800) Activity Assistance Provided: assistance, stand-by Goal: Blood Glucose Level Within Target Range Outcome: Ongoing, Progressing Intervention: Optimize Glycemic Control Flowsheets (Taken 07/08/2025 1125) Hyperglycemia Management: blood glucose monitored Goal: Minimize Hypoglycemia Risk Outcome: Ongoing, Progressing Intervention: Minimize and Manage Hypoglycemia Flowsheets (Taken 07/08/2025 1125) Hypoglycemia Management: blood glucose monitored Problem: Self-Care Deficit Goal: Improved Ability to Complete Activities of Daily Living Outcome: Ongoing, Progressing Intervention: Promote Activity and Functional Worth Flowsheets (Taken 07/08/2025 0800) Activity Assistance Provided: assistance, stand-by * Assessment & Plan Note - Juliane Rodriguez - 07/08/2025 11:14 AM EDTAssociated Problem(s): Type 2 diabetes mellitus, with long-term current use of insulin ([facility]) - Glucose 172 PLAN - Continue Glargine 24 U daily + resistant SSI - Continue to monitor glucose trends * Assessment & Plan Note - Juliane Rodriguez - 07/08/2025 11:14 AM EDTAssociated Problem(s): Diabetic peripheral neuropathy (CMS/HCC) - Glucose 172 PLAN - Continue Glargine [...] Mobility Bed Mobility Exam: Scooting/Bridging Level of Worth: Stand-by assist Physical/Nonphysical Assist: Supervision Assistive Device: Bed rails Bed Mobility Exam: Supine to Sit Level of Worth: Stand-by assist Physical/Nonphysical Assist: Supervision, HOB elevated Assistive Device: Bed rails Bed Mobility Exam: Sit to Supine Level of Worth: Stand-by assist Physical/Nonphysical Assist: Supervision, HOB elevated Assistive Device: Bed rails Transfers Transfer Exam: Sit to stand Level of Worth: Stand-by assist Physical/Nonphysical Assist: Supervision Assistive Device: Rollator Transfer Exam: Stand to Sit Level of Worth: Stand-by assist Physical/Nonphysical Assist: Supervision Assistive Device: [...] Note Monika Ordaz 64 y.o. female CSN: [id number] Admission: 06/25/2025 2:14 PM Primary Problem: Acute kidney injury superimposed on stage 3b chronic kidney disease (CMS/HCC) Additional Comments SW met with the Family Medicine team to discuss pts POC. Pt is medically ready for discharge at this time. Pt is pending insurance approval for SNF at [facility] in [place]. SW spoke with liaison, Ro, and she stated that pts insurance asked for an updated MD note which was sent this morning. Pt is still pending insurance approval. JHONNY will continue to follow and assist. 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 Subjective Monika Ordaz is [...] mellitus, with long-term current use of insulin ([facility]/HCC) Diabetic peripheral neuropathy ([facility]) - Glucose 172 PLAN - Continue Glargine 24 U daily + resistant SSI - Continue to monitor glucose trends Dysphagia Heartburn - Reflux stable PLAN - Continue to hold omeprazole Serum ammonia increased ([facility]) - Ammonia 146 PLAN - Increase home Lactulose to 30 g TID - Recheck ammonia if neurologic change suspected Hypomagnesemia - Mg 1.9 PLAN - Continue magnesium oxide 400 mg daily - Check Levels Daily Chronic obstructive pulmonary disease ([facility]/HCC) JONATHAN treated with BiPAP - Chronic; on home BiPAP, per RT recs Coronary artery disease of mash[place] artery of mashpee heart with stable angina pectoris ([facility]) Hyperlipidemia - Chronic; Continue to hold Crestor [...] saw and evaluated the patient with the medical/HAND INSPECTOR/PA student. I discussed the case with the medical/HAND INSPECTOR/PA student and agree with the findings and [...] Review Outcome: Ongoing, Progressing Flowsheets (Taken 07/08/2025 010) Progress: improving Plan of Care Reviewed With: patient Goal: Patient-Specific Goal (Individualized) Outcome: Ongoing, Progressing Flowsheets (Taken 07/08/2025 010) Patient/Family-Specific Goals (Include Timeframe): Patient will have [...] Ongoing, Progressing Intervention: Promote Activity and Functional Worth Flowsheets (Taken 07/07/20251999) Activity Assistance Provided: assistance, stand-by Self-Care Promotion: independence encouraged * Care Alexandre - Mariam Gonzalez RN - 07/07/2025 2:09 [...] Monitor and Support Renal Function Flowsheets (Taken 07/07/2025799) Medication Review/Management: medications reviewed * Assessment & [...] mellitus, with long-term current use of insulin ([facility]) - Glucose 151 PLAN - Continue Glargine 24 U daily + resistant SSI - Continue to monitor glucose trends * Assessment & Plan Note - Marcelo Pichardo - 07/07/2025 12:59 PM EDT Associated Problem(s): Diabetic peripheral neuropathy ([facility]) - Glucose 151 PLAN - Continue Glargine [...] PM EDT Associated Problem(s): Serum ammonia increased ([facility]) - Last ammonia stable at 61 on [...] EDT Associated Problem(s): Chronic obstructive pulmonary disease ([facility]) - Chronic; on home BiPAP, per RT recs * Assessment & Plan Note - Marcelo Pichardo - 07/07/2025 12:59 PM EDT Associated Problem(s): JONATHAN treated with BiPAP - Chronic; on home BiPAP, per RT recs * Assessment & Plan Note - Marcelo Pichardo - 07/07/2025 12:59 PM EDT Associated Problem(s): Coronary artery disease of mash[place] artery of mashpee heart with stable angina pectoris ([facility]) - Chronic; Continue to hold Crestor * [...] mellitus, with long-term current use of insulin ([facility]) Diabetic peripheral neuropathy ([facility]) - Glucose 151 PLAN - Continue Glargine 24 U daily + resistant SSI - Continue to monitor glucose trends Dysphagia Heartburn - Reflux stable PLAN - Continue to hold omeprazole Serum ammonia increased ([facility]) - Last ammonia stable at 61 on 06/30 PLAN - Continue home Lactulose - Recheck ammonia if neurologic change suspected Hypomagnesemia - Mg 1.9 PLAN - Continue magnesium oxide 400 mg daily - Check Levels Daily Chronic obstructive pulmonary disease ([facility]) JONATHAN treated with BiPAP - Chronic; on home BiPAP, per RT recs Coronary artery disease of mash[place] artery of mashpee heart with stable angina pectoris ([facility]) Hyperlipidemia - Chronic; Continue to hold Crestor [...] saw and evaluated the patient with the medical/HAND INSPECTOR/PA student. I discussed the case with the medical/HAND INSPECTOR/PA student and agree with the findings and [...] Present: No Family/Caregiver: Mother, Other (Specify) (Sister) Automation And Controls Manager: Not Applicable Presentation Oxygen Therapy: None (Room [...] Mobility Bed Mobility Exam: Scooting/Bridging Level of Worth: Stand-by assist Physical/Nonphysical Assist: Supervision Assistive Device: Bed rails Bed Mobility Exam: Supine to Sit Level of Worth: Stand-by assist Physical/Nonphysical Assist: Supervision, HOB elevated Assistive Device: Bed rails Bed Mobility Exam: Sit to Supine Level of Worth: Contact guard Physical/Nonphysical Assist: Supervision, HOB elevated Assistive Device: Bed rails Transfers Transfer Exam: Sit to stand Level of Worth: Contact guard Physical/Nonphysical Assist: Supervision, Verbal Cues, Minimal cues Assistive Device: Rollator Transfer Exam: Stand to Sit Level of Worth: Stand-by assist Physical/Nonphysical Assist: Supervision, Verbal Cues, Minimal cues Assistive Device: Rollator Toilet Transfer Level of Worth: Contact guard Physical/Nonphysical Assist: Supervision, Verbal Cues, [...] Care Review Outcome: Ongoing, Progressing Flowsheets Taken 07/07/2025 0405 Progress: improving Taken 07/06/2025 0403 Outcome Evaluation: [...] off Intervention: Prevent Infection Flowsheets (Taken 07/07/2025 040) Infection Prevention: hand hygiene promoted rest/sleep promoted Goal: Optimal Comfort and Wellbeing Outcome: Ongoing, Progressing Intervention: Monitor Pain and Promote Comfort Flowsheets (Taken 07/07/2025 040) Pain Management Interventions: declines Intervention: Provide Person-Centered Care Flowsheets (Taken 07/07/2025 0405) Trust Relationship/Rapport: care explained choices provided emotional [...] mellitus, with long-term current use of insulin ([facility]) - Glucose 128 PLAN - Continue Glargine 24 U daily + resistant SSI - Continue to monitor glucose trends * Assessment & Plan Note - Juliane Rodriguez - 07/06/2025 11:50 AM EDTAssociated Problem(s): Diabetic peripheral neuropathy (CMS/HCC) - Glucose 128 PLAN - Continue Glargine [...] VTE (Venous Thromboembolism) Risk Flowsheets (Taken 07/06/2025 040 by Rochelle Xiong LPN) VTE Prevention/Management: SCDs (sequential compression devices) off Intervention: Prevent Infection Flowsheets (Taken 07/06/2025 0950) Infection Prevention: single patient room provided hand hygiene promoted equipment surfaces disinfected environmental surveillance performed cohorting utilized Goal: Optimal Comfort and Wellbeing Outcome: Ongoing, Progressing Intervention: Provide Person-Centered Care Flowsheets (Taken 07/06/2025 0950) Trust Relationship/Rapport: care explained choices provided emotional support provided empathic listening provided questions answered questions encouraged Problem: Acute Kidney Injury/Impairment Goal: Fluid and Electrolyte Balance Outcome: Ongoing, Progressing Goal: Improved Oral Intake Outcome: Ongoing, Progressing Goal: Effective Renal Function Outcome: Ongoing, Progressing Intervention: Monitor and Support Renal Function Flowsheets (Taken 07/06/2025 040 by Rochelle Xiong LPN) Stabilization Measures: legs elevated Medication Review/Management: medications reviewed * Assessment & Plan Note - Juliane Rodriguez - 07/06/2025 7:03 AM EDTAssociated Problem(s): Physical debility - Patient at this time has elected to pursue Alf Care placement and would like to speak [...] at this time has elected to pursue Alf Care placement and would like to speak [...] at this time has elected to pursue Alf Care placement and would like to speak [...] AM EDTAssociated Problem(s): Chronic obstructive pulmonary disease ([facility]/HCC) - Chronic; on home BiPAP, per RT recs * Assessment & Plan Note - Juliane Rodriguez - 07/06/2025 7:03 AM EDTAssociated Problem(s): JONATHAN treated with BiPAP - Chronic; on home BiPAP, per RT recs * Assessment & Plan Note - Juliane Rodriguez - 07/06/2025 7:03 AM EDTAssociated Problem(s): Coronary artery disease of [place] artery of [place] heart with stable angina pectoris ([facility]) - Chronic; Continue to hold Crestor * [...] at this time has elected to pursue [facility] Specialist Care placement and would like to speak with palliative care to learn more about their services - SW working to find LTC facility placement - palliative consulted PLAN - Delirium protocols - Continue Up to Chair TID, q4 turns - Ongoing GOC discussions Type 2 diabetes mellitus, with long-term current use of insulin ([facility]) Diabetic peripheral neuropathy ([facility]) - Glucose 128 PLAN - Continue Glargine 24 U daily + resistant SSI - Continue to monitor glucose trends Dysphagia Heartburn - Reflux stable PLAN - Continue to hold omeprazole Serum ammonia increased ([facility]) - Last ammonia stable at 61 on 06/30 PLAN - Continue home Lactulose - Recheck ammonia if neurologic change suspected Hypomagnesemia - Mg 1.7 overnight - Patient received IV magnesium replacement PLAN - Continue magnesium oxide 400 mg daily - Check Levels Daily Chronic obstructive pulmonary disease ([facility]) JONATHAN treated with BiPAP - Chronic; on home BiPAP, per RT recs Coronary artery disease of [place] artery of [place] heart with stable angina pectoris ([facility]) Hyperlipidemia - Chronic; Continue to hold Crestor [...] saw and evaluated the patient with the medical/HAND INSPECTOR/PA student. I discussed the case with the medical/HAND INSPECTOR/PA student and agree with the findings and [...] and Manage Fall Risk Flowsheets (Taken 07/06/2025 0400) Safety Promotion/Fall Prevention: activity supervised Intervention: Prevent Skin Injury Flowsheets (Taken 07/06/2025 0400) Body Position: weight shifting Skin Protection: incontinence pads utilized Intervention: Prevent and Manage VTE (Venous Thromboembolism) Risk Flowsheets (Taken 07/06/2025 0400) VTE Prevention/Management: SCDs (sequential compression devices) off Intervention: Prevent Infection Flowsheets (Taken 07/06/2025 0400) Infection Prevention: hand hygiene promoted Goal: Optimal Comfort and Wellbeing Outcome: Ongoing, Progressing Intervention: Monitor Pain and Promote Comfort Flowsheets (Taken 07/06/2025 0400) Pain Management Interventions: medication (see MAR) Intervention: Provide Person-Centered Care Flowsheets (Taken 07/06/2025 0400) Trust Relationship/Rapport: care explained Problem: Acute Kidney Injury/Impairment Goal: Fluid and Electrolyte Balance Outcome: Ongoing, Progressing Intervention: Monitor and Manage Fluid and Electrolyte Balance Flowsheets (Taken 07/06/2025 0400) Fluid/Electrolyte Management: fluids restricted Goal: Improved Oral Intake Outcome: Ongoing, Progressing Intervention: Promote and Optimize Oral Intake Flowsheets (Taken 07/06/20250) Oral Nutrition Promotion: rest periods promoted Nutrition Interventions: frequent small meals provided Goal: Effective Renal Function Outcome: Ongoing, Progressing Intervention: Monitor and Support Renal Function Flowsheets (Taken 07/06/2025 0400) Stabilization Measures: legs elevated Medication Review/Management: medications reviewed * Progress Notes - Venessa Brown - 07/05/2025 2:21 PM EDT Case Management Adult Progress Note Monika Ordaz 64 y.o. female CSN: [id number] Admission: 06/25/2025 2:14 PM Primary Problem: Acute [...] chart. JHONNY sent updated PT/OT notes to [facility] to begin precert. SW will continue to follow and assist. Venessa Brown * Progress Notes - Venessa Haro S - 07/05/2025 2:08 PM EDT Occupational Therapy Treatment Patient Name: Monika Ordaz Today's Date: 07/05/2025 OT Discharge Recommendations: Home with 24 hour assistance, Home health PT, Home health OT Equipment Recommended: Patient owns appropriate equipment Subjective Pt pleasant and cooperative with treatment. Participants in Care Family/Caregiver Present: Yes Family/Caregiver: Mother, Other (Specify) (sister) Automation And Controls Manager: Not Applicable Presentation Oxygen Therapy: None (Room [...] Mobility Bed Mobility Exam: Scooting/Bridging Level of Worth: Stand-by assist (to EOB) Physical/Nonphysical Assist: Supervision Assistive Device: Bed rails Bed Mobility Exam: Supine to Sit Level of Worth: Minimum assist (75% patient's effort) Physical/Nonphysical Assist: Supervision, HOB elevated, Minimal cues, Verbal Cues Assistive Device: Bed rails, Other (CHIEF STRATEGY OFFICER) Transfers Transfer Exam: Sit to stand Level of Worth: Stand-by assist Physical/Nonphysical Assist: Supervision, Verbal Cues, Minimal cues Assistive Device: Rollator Transfer Exam: Stand to Sit Level of Worth: Stand-by assist Physical/Nonphysical Assist: Supervision, Verbal Cues, Minimal cues Assistive Device: Rollator Toilet Transfer Level of Worth: Stand-by assist Physical/Nonphysical Assist: Supervision, Minimal cues, [...] educated pt on the use of a high voltage electrician for ease of donning pull ups and pants. Pt stated, I never thought of that, and expressed interest in purchasing a high voltage electrician. Toileting Toileting Level of Assistance: SBA, Setup [...] mellitus, with long-term current use of insulin ([facility]) - Glucose 147 PLAN - Continue Glargine 24 U daily + resistant SSI - Continue to monitor glucose trends * Assessment & Plan Note - Juliane Rodriguez - 07/05/2025 1:06 PM EDTAssociated Problem(s): Diabetic peripheral neuropathy ([facility]) - Glucose 147 PLAN - Continue Glargine [...] Present: Yes Family/Caregiver: Mother, Other (Specify) (Sister) Automation And Controls Manager: Not Applicable Presentation Oxygen Therapy: None (Room [...] Mobility Bed Mobility Exam: Scooting/Bridging Level of Worth: Stand-by assist Physical/Nonphysical Assist: Supervision Assistive Device: Bed rails Bed Mobility Exam: Supine to Sit Level of Worth: Stand-by assist Physical/Nonphysical Assist: Supervision, HOB elevated Assistive Device: Bed rails Bed Mobility Exam: Sit to Supine Level of Worth: Stand-by assist Physical/Nonphysical Assist: Supervision, Verbal Cues, HOB elevated, Minimal cues Assistive Device: Bed rails Transfers Transfer Exam: Sit to stand Level of Worth: Stand-by assist Physical/Nonphysical Assist: Supervision, Verbal Cues, Minimal cues Assistive Device: Rollator Transfer Exam: Stand to Sit Level of Worth: Stand-by assist Physical/Nonphysical Assist: Supervision, Verbal Cues, [...] Identify and Manage Fall Risk Flowsheets (Taken 07/05/2025199 by Rochelle Xiong LPN) Safety Promotion/Fall Prevention: [...] Progressing Intervention: Provide Person-Centered Care Flowsheets (Taken 07/05/2025199 by Rochelle Xiong LPN) Trust Relationship/Rapport: care explained choices provided emotional support provided empathic listening provided questions answered questions encouraged reassurance provided thoughts/feelings acknowledged Problem: Acute Kidney Injury/Impairment Goal: Fluid and Electrolyte Balance Outcome: Ongoing, Progressing Goal: Improved Oral Intake Outcome: Ongoing, Progressing Intervention: Promote and Optimize Oral Intake Flowsheets (Taken 07/05/2025199 by Rochelle Xiong LPN) Oral Nutrition Promotion: [...] at this time has elected to pursue Alf Care placement and would like to speak [...] at this time has elected to pursue Access Control Specialist Care placement and would like to speak [...] at this time has elected to pursue Alf Care placement and would like to speak [...] AM EDTAssociated Problem(s): Coronary artery disease of [place] artery of [place] heart with stable angina pectoris (CMS/HCC) - [...] superimposed on stage 3b chronic kidney disease ([facility]/HCC) Chronic kidney disease, stage 3b ([facility]/HCC) Cirrhosis of liver with ascites ([facility]/HCC) Hx of spontaneous bacterial peritonitis Pleural effusion [...] at this time has elected to pursue Alf Care placement and would like to speak with palliative care to learn more about their services - SW working to find LTC facility placement - palliative consulted PLAN - Delirium protocols - Continue Up to Chair TID, q4 turns - Ongoing GOC discussions Type 2 diabetes mellitus, with long-term current use of insulin ([facility]) Diabetic peripheral neuropathy ([facility]) - Glucose 147 PLAN - Continue Glargine 24 U daily + resistant SSI - Continue to monitor glucose trends Dysphagia Heartburn - Reflux stable PLAN - Continue to hold omeprazole Serum ammonia increased ([facility]) - Last ammonia stable at 61 on 06/30 PLAN - Continue home Lactulose - Recheck ammonia if neurologic change suspected Hypomagnesemia - Mg 1.8 overnight PLAN - Continue magnesium oxide 400 mg daily - Check Levels Daily Chronic obstructive pulmonary disease (CMS/HCC) JONATHAN treated with BiPAP - Chronic; on home BiPAP, per RT recs Coronary artery disease of [place] artery of [place] heart with stable angina pectoris (CMS/HCC) Hyperlipidemia [...] Absence of Fall and Fall-Related Injury 07/05/2025 0503 by Rochelle Xiong LPN Outcome: Ongoing, Progressing [...] Goal: Optimal Comfort and Wellbeing 07/05/2025506 by Rcohelle Xiong LPN Outcome: Ongoing, Progressing 07/05/2025208 by [...] small meals provided Goal: Effective Renal Function 07/05/2025506 by Rochelle Xiong LPN Outcome: Ongoing, [...] Identify and Manage Contributors Flowsheets (Taken 07/04/2025 155) Medication Review/Management: medications reviewed Self-Care Promotion: independence [...] and Optimize Oral Intake Flowsheets (Taken 07/04/2025 155) Oral Nutrition Promotion: adaptive equipment use encouraged [...] Pain and Promote Comfort Flowsheets (Taken 07/04/2025 1556) Pain Management Interventions: pain management plan reviewed with patient/caregiver Intervention: Provide Person-Centered Care Flowsheets (Taken 07/04/2025 1556) Trust Relationship/Rapport: care explained Problem: Acute Kidney [...] and Support Renal Function Flowsheets (Taken 07/04/2025 1556) Stabilization Measures: legs elevated Medication Review/Management: medications [...] Note Monika Ordaz 64 y.o. female CSN: [id number] Admission: 06/25/2025 2:14 PM Primary Problem: Acute [...] LTC. Pt would prefer to be near [place] due to her mother and sister being in [place]. JHONNY will continue to follow and assist. [...] at this time has elected to pursue Access Control Specialist Care placement and would like to speak [...] at this time has elected to pursue Access Control Specialist Care placement and would like to speak [...] at this time has elected to pursue Alf Care placement and would like to speak [...] mellitus, with long-term current use of insulin ([facility]) - Last POCT glucose 103 PLAN - Continue Glargine 24 U daily + resistant SSI - Continue to monitor glucose trends * Assessment & Plan Note - Rebekah Segura MD - 07/04/2025 9:28 AM EDT Associated Problem(s): Diabetic peripheral neuropathy ([facility]) - Last POCT glucose 103 PLAN - [...] AM EDT Associated Problem(s): Serum ammonia increased ([facility]) - Last ammonia stable at 61 on [...] EDT Associated Problem(s): Chronic obstructive pulmonary disease ([facility]) - Chronic; on home BiPAP, per RT recs * Assessment & Plan Note - Rebekah Segura MD - 07/04/2025 9:28 AM EDT Associated Problem(s): JONATHAN treated with BiPAP - Chronic; on home BiPAP, per RT recs * Assessment & Plan Note - Rebekah Segura MD - 07/04/2025 9:28 AM EDT Associated Problem(s): Coronary artery disease of [place] artery of [place] heart with stable angina pectoris ([facility]) - Chronic; Continue to hold Crestor * [...] * Progress Notes - Maria Dolores Ontiveros, MIDDLE SCHOOL VOLLEYBALL COACH, DNP - 07/04/2025 9:08 AM EDT 07/04/25 [...] care of this patient. Maria Dolores Ontiveros, MIDD[employer] SCHO[employer] VOLLEYBALL COACH, DNP Interventional Radiology [phone] [1] Past Medical History: Diagnosis Date ADHD (attention deficit hyperactivity disorder) Allergic Anxiety disorder, unspecified Anxiety Bleeding gums Blood in urine Cataract Chronic kidney disease Cirrhosis (CMS/HCC) Colon cancer screening 09/20/2019 Added automatically from request for surgery [id number] Coronary artery disease Depression 1995 Diabetes mellitus [...] 1979 BLADDER SURGERY N/A Bladder surgery from [facility] BREAST BIOPSY 2011 BREAST SURGERY 2010 BUNIONECTOMY Right CATARACT EXTRACTION Bilateral 2016 CHOLECYSTECTOMY 1979 ESOPHAGOGASTRODUODENOSCOPY HYSTERECTOMY N/A Hysterectomy from [facility] KNEE SURGERY Bilateral ORAL SURGERY N/A Oral surgery from [facility] OTHER SURGICAL HISTORY 2015 ROOT CANAL WISDOM TOOTH EXTRACTION [3] Social History Tobacco Use Smoking status: Never Passive exposure: Never Smokeless tobacco: Never Vaping Use Vaping status: Never Used Substance Use Topics Alcohol use: Not Currently Drug use: Never [4] No Known Allergies [5] Current Facility-Administered Medications: albumin human 25 % infusion 12.5 g, 12.5 g, Intravenous, q15 min PRN, Gabrielaeks, Marianna N, MIDDLE SCHOOL VOLLEYBALL COACH benzonatate (Tessalon) capsule 100 mg, 100 mg, Oral, TID PRN, Veronica Del Valle K, DO bisacodyl (Dulcolax) suppository 10 mg, 10 mg, Rectal, Daily PRN, Siri Eaton MD calcitriol (Rocaltrol) capsule 0.25 mcg, 0.25 mcg, Oral, Daily, Blayne Ordaz S, DO, 0.25 mcg at 07/03/25 0935 calcium carbonate (Tums) chewable tablet 750 mg, 750 mg, Oral, Daily, Blayne Ordaz S, DO, 750 mg at07/03/25 0935 capsaicin (Zostrix) 0.025 % cream, , Topical, BID PRN, Blayne Ordaz, cetirizine (ZyrTEC) tablet 10 mg, 10 mg, Oral, Daily, Blayne Ordaz, , 10 mg at 07/03/25 0935 cholecalciferol (Vitamin D-3) tablet 1,000 Units, 1,000 Units, Oral, Daily, Blayne Ordaz, , 1,000 Units at 07/03/25 0935 ciprofloxacin (Cipro) tablet 500 mg, 500 mg, Oral, Daily, Blayne Ordaz , DO, 500 mg at 07/03/25 0935 glucose (Glutose) [...] Blayne Ordaz, , 20 g at 07/03/25 2142 lidocaine 1% in sodium bicarbonate (buffered lidocaine)10 mL, 10 mL, Infiltration, Once, Maria Dolores Ontiveros APRN, ANGELLA magnesium oxide (Mag-Ox) tablet 400 mg, 400 mg, Oral, Daily, Blayne Ordaz, DO, 400 mg at 142 midodrine (Proamatine) tablet 15 mg, 15 mg, Oral, TID, Dayne Medel, DO, 15 mg at 07/04/25 0904 prochlorperazine (Compazine) tablet 5 mg, 5 mg, Oral, q6h PRN, Irvin Ball MD, 5 mg at 07/03/25 1330 rifAXIMin (Xifaxan) tablet 550 mg, 550 mg, Oral, BID, Blayne Ordaz, DO, 550 mg at 07/03/25 2142 [COMPLETED] [...] Intravenous, PRN, Maria Dolores Ontiveros APRN, ANGELLA Insert peripheral IV, , , Once AND Saline lock IV, , , Once AND sodium chloride 0.9 % flush10 mL, 10 mL, Intravenous, q12h AND sodium chloride 0.9 % flush 10 mL, 10 mL, Intravenous, PRN,Maria Dolores Ontiveros APRN, ANGELLA * Progress Notes - Rebekah Segura MD [...] at this time has elected to pursue Alf Care placement and would like to speak with palliative care to learn more about their services - SW working to find LTC facility placement - palliative consulted PLAN - Delirium protocols - Continue Up to Chair TID, q4 turns - Ongoing GOC discussions Type 2 diabetes mellitus, with long-term current use of insulin (CMS/HCC) Diabetic peripheral neuropathy ([facility]/HCC) - Last POCT glucose 103 PLAN - [...] per RT recs Coronary artery disease of [place] artery of [place] heart with stable angina pectoris ([facility]) Hyperlipidemia - Chronic; Continue to hold Crestor [...] LTC Placement Rebekah Segura MD Psychiatry, PGY-1 [facility] Cosigned by Fabiana Cunningham MD at 07/05/2025 [...] scheduled Intervention: Prevent Skin Injury Flowsheets Taken 07/04/2025 020 Skin Protection: incontinence pads utilized Taken 07/03/20252044 [...] Identify and Manage Fall Risk Flowsheets (Taken 07/03/2025 184) Safety Promotion/Fall Prevention: activity supervised clutter-free environment maintained fall prevention program maintained Intervention: Prevent Skin Injury Flowsheets (Taken 07/03/2025 184) Body Position: turned Skin Protection: incontinence pads utilized Intervention: Prevent and Manage VTE (Venous Thromboembolism) Risk Flowsheets (Taken 07/03/20251844) VTE Prevention/Management: SCDs (sequential compression devices) off medication Intervention: Prevent Infection Flowsheets (Taken 07/03/2025 184) Infection Prevention: hand hygiene promoted Goal: Optimal Comfort and Wellbeing Outcome: Ongoing, Progressing Intervention: Monitor Pain and Promote Comfort Flowsheets (Taken 07/03/2025 184) Pain Management Interventions: medication (see MAR) Intervention: Provide Person-Centered Care Flowsheets (Taken 07/03/20251844) Trust Relationship/Rapport: care explained choices provided emotional support provided Problem: Acute Kidney Injury/Impairment Goal: Fluid and Electrolyte Balance Outcome: Ongoing, Progressing Intervention: Monitor and Manage Fluid and Electrolyte Balance Flowsheets (Taken 07/03/2025 184) Fluid/Electrolyte Management: fluids provided Goal: Improved Oral [...] described in the palliative care note from 5 today though not with the severity she [...] with clarification of goals of care PC staff nurse icu resource team(s) at this encounter: Nurse Practitioner Requesting Service: History Of Present Illness Monika Ordaz is [...] is no recent study available for direct [id number] comparison. TECHNIQUE: Multiple axial CT images were [...] stage 3b (CMS/HCC) Coronary artery disease of [place] artery of [place] heart with stable angina pectoris (CMS/HCC) Diabetic [...] to proceed with NH placement in either [place] or [place] to be close to her sisterand her friends. She is interested in completing Living will and HCS while here. Has several questions regarding selling property and her insurance. - GLOBE TESTER to complete living will -Will contact Case management Number and complexity of problems addressed is high, including acute illness or injury that poses athreat to life or bodily function. Risk of complications and/or morbidity or mortality of patient management is high due to need for hospitalization for stabilization and care. Palliative and Supportive Care Kandice Romano [employer] V[employer]LEYBALL COACH # [phone] or Secure chat [1] Past Medical History: Diagnosis Date ADHD (attention deficit hyperactivity disorder) Allergic Anxiety disorder, unspecified Anxiety Bleeding gums Blood in urine Cataract Chronic kidney disease Cirrhosis (CMS/HCC) Colon cancer screening 09/20/2019 Added automatically from request for surgery [id number] Coronary artery disease Depression 1996 Diabetes mellitus [...] 1979 BLADDER SURGERY N/A Bladder surgery from [facility] BREAST BIOPSY 2011 BREAST SURGERY 2010 BUNIONECTOMY Right CATARACT EXTRACTION Bilateral 2016 CHOLECYSTECTOMY 1980 ESOPHAGOGASTRODUODENOSCOPY HYSTERECTOMY N/A Hysterectomy from [facility] KNEE SURGERY Bilateral ORAL SURGERY N/A Oral surgery from [facility] OTHER SURGICAL HISTORY 2015 ROOT CANAL WISDOM [...] currently undergoing evaluation for liver transplant. Decompensated [facility] Cirrhosis (POA) Ascites (POA) EV (POA) HE [...] capsule 2 ergocalciferol (Vitamin D-2) 1.25 MG (91529 UT) capsule Take 1 capsule by mouth [...] and inability to care for self. Ms. Ordza is well known to IR, undergoing outpatient [...] - Any questions with scheduling please call [phone] - Please place orders for desired fluid studies to be sent for analysis prior to procedure Thank you for allowing us to participate in the care of this patient. iMcheal Glasgow, MIDDLE SCHOOL V[employer]LEYBALL COACH, DNP Interventional Radiology [phone] [1] Past Medical History: Diagnosis Date ADHD (attention deficit hyperactivity disorder) Allergic Anxiety disorder, unspecified Anxiety Bleeding gums Blood in urine Cataract Chronic kidney disease Cirrhosis (CMS/HCC) Colon cancer screening 09/20/2019 Added automatically from request for surgery [id number] Coronary artery disease Depression 1996 Diabetes mellitus [...] 1979 BLADDER SURGERY N/A Bladder surgery from [facility] BREAST BIOPSY 2011 BREAST SURGERY 2009 BUNIONECTOMY Right CATARACT EXTRACTION Bilateral 2016 CHOLECYSTECTOMY 1979 ESOPHAGOGASTRODUODENOSCOPY HYSTERECTOMY N/A Hysterectomy from [facility] KNEE SURGERY Bilateral ORAL SURGERY N/A Oral surgery from [facility] OTHER SURGICAL HISTORY 2015 ROOT CANAL WISDOM TOOTH EXTRACTION [3] Social History Tobacco Use Smoking status: Never Passive exposure: Never Smokeless tobacco: Never Vaping Use Vaping status: Never Used Substance Use Topics Alcohol use: Not Currently Drug use: Never [4] No Known Allergies [5] Current Facility-Administered Medications: albumin human 25 % infusion 12.5 g, 12.5 g, Intravenous, q15 min PRN, Marianna Gordon N, [employer]CHO[employer] albumin human 25 % infusion 87.5 g, [...] Daily, Blayne Ordaz DO, 1,000 Units at 07/03/25934 ciprofloxacin (Cipro) tablet 500 mg, 500 mg, Oral, Daily, Blayne Ordaz DO, 500 mg at 07/03/25934 glucose (Glutose) 40 % oral gel 15-30 [...] Blayne Ordaz DO, 20 g at 07/03/25 09 magnesium oxide (Mag-Ox) tablet 400 mg, 400 mg, Oral, Daily, Blayne Ordaz DO, 400 mg at midodrine (Proamatine) tablet 15 mg, 15 mg, Oral, TID, Dayne Medel, DO, 15 mg at 07/03/25 09 rifAXIMin (Xifaxan) tablet 550 mg, 550 mg, [...] Intravenous, PRN, Maria Dolores Ontiveros APRN, DNP * Consults - Yudith Coates RD - 07/03/2025 10:11 AM EDTAssociated Order(s): IP CONSULT TO NUTRITION SERVICES Adult Nutrition Evaluation Note Monika Ordaz 64 y.o. female CSN: [id number] Room/Bed 723/723A Nutrition evaluation type: follow-up Reason for evaluation: provider consult; pt request for diet education Hospital course: 64y/o female admitted 06/25 for CARLOTTA on CKD and inability to care for herself. Past medical/ surgical history: Past Medical History[1] Surgical History[2] Social history: None, no faith needs Additional comments: 07/03: Pt seen at [...] agreeable to snacks TID and trial of [place] [facility] to meet increased nutrient needs. Provided opportunity [...] reading nutrition facts labels. Discussed how the shelter she discharges to would likely monitor these nutrients in her diet to help manage her conditions. All questions/concerns addressed to pt satisfaction. Diet Education Provided: Will monitor Vitals and Basic Assessment: BP: 108/57 Temp: 36.7 ??C (98.1 ??F) Oxygen Therapy: None (Room air) O2 Delivery Method: CPAP/Bi-PAP mask Shamir Coma Scale Score: 14 Edd Scale Score: [...] 30.12 Weight Evaluation: Obese-Class 1 (BMI 30-34.9) Hope Body Weight (kg): 56.8 Percent Hope Body Weight: 145 Adjusted Body Weight (kg): [...] oz) Estimated Needs: Kcal/ K-35 Kcal Provided: 2435-8061 Kcal Needs Based On: Adjusted weight (63 kg) Gm Protein/ Kg : 1.2-1.5 Protein Provided: 76-95 Protein Needs Based On: Adjusted weight (63 kg) Fluid Provided: 1 ml/kcal or per MD team Metabolic Cart Study Results: Current Nutrition Intake: Diet Supplements: None Diet Order: Adult Diet Diet Texture: Regular Adult Carbohydrate Restriction: Consistent CHO 2 (9082-8039 Deniz, 80 g/meal) Fat Restriction: (-) Electrolyte [...] greater menu options as elytes WNLs. Trial [place] [facility] x 1 daily. Add Snacks [...] 09/20/2019 Added automatically from request for surgery [id number] Coronary artery disease Depression 1996 Diabetes mellitus [...] 1979 BLADDER SURGERY N/A Bladder surgery from [facility] BREAST BIOPSY 2011 BREAST SURGERY 2010 BUNIONECTOMY Right CATARACT EXTRACTION Bilateral 2016 CHOLECYSTECTOMY 1979 ESOPHAGOGASTRODUODENOSCOPY HYSTERECTOMY N/A Hysterectomy from [facility] KNEE SURGERY Bilateral ORAL SURGERY N/A Oral surgery from [facility] OTHER SURGICAL HISTORY 2014 ROOT CANAL WISDOM [...] capsule 2 ergocalciferol (Vitamin D-2) 1.25 MG (34610 UT) capsule Take 1 capsule by mouth [...] at this time has elected to pursue Alf Care placement and would like to speak [...] at this time has elected to pursue Alf Care placement and would like to speak [...] at this time has elected to pursue Alf Care placement and would like to speak [...] mellitus, with long-term current use of insulin ([facility]) - Last POCT glucose 150 - 2 Units correction in last 24h none overnight PLAN - Continue Glargine 24 U daily + resistant SSI - Continue to monitor glucose trends * Assessment & Plan Note - Marcelo Pichardo - 07/03/2025 6:57 AM EDTAssociated Problem(s): Diabetic peripheral neuropathy ([facility]) - Last POCT glucose 150 - 2 [...] 6:57 AM EDTAssociated Problem(s): Serum ammonia increased ([facility]) - Last ammonia stable at 61 on [...] AM EDTAssociated Problem(s): Chronic obstructive pulmonary disease ([facility]/HCC) - Chronic; on home BiPAP, per RT recs * Assessment & Plan Note - Marcelo Pichardo - 07/03/2025 6:57 AM EDTAssociated Problem(s): JONATHAN treated with BiPAP - Chronic; on home BiPAP, per RT recs * Assessment & Plan Note - Marcelo Pichardo - 07/03/2025 6:57 AM EDTAssociated Problem(s): 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 [...] at this time has elected to pursue Access Control Specialist Care placement and would like to speak with palliative care to learn more about their services - L Leg discomfort is improved PLAN - Delirium protocols - Continue Up to Chair TID, q4 turns - SW to meet with patient to discuss options further - Consult Palliative care - Ongoing GOC discussions Type 2 diabetes mellitus, with long-term current use of insulin ([facility]) Diabetic peripheral neuropathy ([facility]) - Last POCT glucose 150 - 2 Units correction in last 24h none overnight PLAN - Continue Glargine 24 U daily + resistant SSI - Continue to monitor glucose trends Dysphagia Heartburn - Reflux stable PLAN - Continue to hold omeprazole Serum ammonia increased ([facility]/HCC) - Last ammonia stable at 61 on 06/30 PLAN - Continue home Lactulose - Recheck ammonia if neurologic change suspected Hypomagnesemia - Mg 2.0 today PLAN - Continue magnesium oxide 400 mg daily - Check Levels Daily Chronic obstructive pulmonary disease ([facility]/HCC) JONATHAN treated with BiPAP - Chronic; on home BiPAP, per RT recs Coronary artery disease of [place] artery of [place] heart with stable angina pectoris ([facility]/HCC) Hyperlipidemia - Chronic; Continue to hold Crestor [...] MD * Care Plan - Deon Fox Jr., RN - 07/03/2025 4:38 AM EDT Problem: [...] Progressing Intervention: Optimize Skin Protection Flowsheets Taken 07/03/2025432 Activity Management: activity adjusted per tolerance Head [...] Care Review Outcome: Ongoing, Progressing Flowsheets Taken 07/03/2025432 by Deon Fox Jr., RN Outcome Evaluation: [...] and Optimize Oral Intake Flowsheets (Taken 07/02/2025 184) Oral Nutrition Promotion: rest periods promoted Goal: Effective Renal Function Outcome: Ongoing, Progressing Intervention: Monitor and Support Renal Function Flowsheets (Taken 07/02/20251842) Medication Review/Management: medications reviewed * Assessment & [...] at this time has elected to pursue Access Control Specialist Care placement and would like to speak [...] at this time has elected to pursue Access Control Specialist Care placement and would like to speak [...] options further - Consider Palliative consult AM 8 - Ongoing GOC discussions * Assessment & [...] at this time has elected to pursue Alf Care placement and would like to speak [...] in urine, Cataract, Chronic kidney disease, Cirrhosis ([facility]), Colon cancer screening (09/20/2019), Coronary artery disease, Depression (1995), Diabetes mellitus type 2 in obese (04/22/2015), Diabetic nephropathy ([facility]), Dry mouth, GERD (gastroesophageal reflux disease), Headache, [...] Bunionectomy (Right); Esophagogastroduodenoscopy; Other surgical history (2014); [place] tooth extraction; Breast surgery (2009); and Root canal. Precautions Medical Precautions: Fall precautions Subjective Pt agreeable to OT re-eval. Pt reported she feels weaker. Participants in Care Family/Caregiver Present: No Automation And Controls Manager: Not Applicable Presentation Oxygen Therapy: None (Room [...] (Sister) Level of Mobility: Ambulatory- community Mobility Worth: Independent gait with device History of Falls: [...] Mobility Bed Mobility Exam: Scooting/Bridging Level of Worth: Stand-by assist Physical/Nonphysical Assist: Supervision Assistive Device: Bed rails Bed Mobility Exam: Supine to Sit Level of Worth: Stand-by assist Physical/Nonphysical Assist: Supervision, HOB elevated Assistive Device: Bed rails Transfers Transfer Exam: Sit to stand Level of Worth: Contact guard Physical/Nonphysical Assist: Supervision, Verbal Cues, Minimal cues Assistive Device: Rollator Transfer Exam: Stand to Sit Level of Worth: Stand-by assist Physical/Nonphysical Assist: Supervision, Verbal Cues, Minimal cues Assistive Device: Rollator Transfer Exam: Bed to Chair/Chair to Bed Level of Worth: Contact guard Physical/Nonphysical Assist: Supervision, Verbal Cues, Minimal cues Assistive Device: Rollator Toilet Transfer Level of Worth: Contact guard Physical/Nonphysical Assist: Supervision, Verbal Cues [...] use of toilet paper but needed to dividing machine operator order to clean [place] area and buttocks. Pt required extra time and rest breaks. Standardized Assessments [facility] 6-Click Daily Activities Help from Other: Don/Doff [...] type 2 in obese (04/22/2015), Diabetic nephropathy ([facility]), Dry mouth, GERD (gastroesophageal reflux disease), Headache, [...] Bunionectomy (Right); Esophagogastroduodenoscopy; Other surgical history (2014); [place] tooth extraction; Breast surgery (2009); and Root canal. Precautions Medical Precautions: Fall precautions Subjective Pt agreeable to participating in session. States she is having an off day today. Participants in Care Family/Caregiver Present: No Automation And Controls Manager: Not Applicable Presentation Oxygen Therapy: None (Room [...] (Sister) Level of Mobility: Ambulatory- community Mobility Worth: Independent gait with device History of Falls: [...] Mobility Bed Mobility Exam: Scooting/Bridging Level of Worth: Stand-by assist Physical/Nonphysical Assist: Supervision Assistive Device: Bed rails Bed Mobility Exam: Supine to Sit Level of Worth: Stand-by assist Physical/Nonphysical Assist: Supervision, HOB elevated Assistive Device: Bed rails Transfers Transfer Exam: Sit to stand Level of Worth: Contact guard Physical/Nonphysical Assist: Supervision, Verbal Cues, Minimal cues Assistive Device: Rollator Transfer Exam: Stand to Sit Level of Worth: Stand-by assist Physical/Nonphysical Assist: Supervision, Verbal Cues, Minimal cues Assistive Device: Rollator Toilet Transfer Level of Worth: Contact guard Physical/Nonphysical Assist: Supervision, Verbal Cues, [...] rest. Standardized Assessments Standardized Assessments Standardized Assessments: [facility] 6-Clicks Mobility Assessment [facility] 6-Clicks Mobility Assessment Difficulty patient has turning [...] 3-5 steps with a railing?: A little [facility] 6-Clicks Mobility Assessment Total : 23 Assessment [...] mellitus, with long-term current use of insulin ([facility]) - Last POCT glucose 115 - 6 Units correction in last 24h none overnight or today PLAN - Continue Glargine 24 U daily + resistant SSI - Continue to monitor glucose trends * Assessment & Plan Note - Marcelo Pichardo - 07/02/2025 9:13 AM EDTAssociated Problem(s): Diabetic peripheral neuropathy ([facility]) - Last POCT glucose 115 - 6 [...] AM EDTAssociated Problem(s): Coronary artery disease of [place] artery of [place] heart with stable angina pectoris (CMS/HCC) - [...] not be placed onto transplant list if [place] was her primary address, but she could go to [facility]. They also told patient she [...] ultimately decided she would like to pursue ad terminal makeup operator care placement at this time. Review of [...] at this time has elected to pursue Access Control Specialist Care placement and would like to speak [...] peripheral neuropathy (CMS/HCC) - Last POCT glucose 115 - 6 Units correction in last 24h none overnight or today PLAN - Continue Glargine 24 U daily + resistant SSI - Continue to monitor glucose trends Dysphagia Heartburn - Reflux stable PLAN - Continue to hold omeprazole Serum ammonia increased ([facility]) - Last ammonia stable at 61 on 06/30 PLAN - Continue home Lactulose - Recheck ammonia if neurologic change suspected Hypomagnesemia - Mg 1.8 today - Elected to hold IV repletion given oral Mg regimen PLAN - Continue magnesium oxide 400 mg daily - Check Levels Daily Chronic obstructive pulmonary disease ([facility]) JONATHAN treated with BiPAP - Chronic; on home BiPAP, per RT recs Coronary artery disease of [place] artery of [place] heart with stable angina pectoris ([facility]) Hyperlipidemia - Chronic; Continue to hold Crestor [...] [] CARLOTTA - Albumin Challenge [] GOC ad terminal makeup operator care vs home on transplant list Marcelo [...] utilized Taken 07/01/20251999 by Deon Fox Jr., RN Activity Management: bedrest ambulated to bathroom Taken [...] Medication Review/Management: medications reviewed * Consults - NeaceGlenn APRN - 07/01/2025 6:24 PM EDTAssociated Order(s): [...] mother who is unable to drive in [place], and a sister who is unable to take care of her as well. She endorsed going to [facility] but believes no one will be able to help her from the [facility]. Edited by: Glenn Drake APRN at 07/01/20251815 [...] 0 min Stress: Stress Concern Present (05/29/2025) [employer] [place] [employer] - Occupational Stress Questionnaire Feeling of Stress: Very much Social Connections: Socially Isolated (05/29/2025) Social Connection and Isolation Panel Frequency of Communication with Friends and Family: More than three times a week Frequency of Social Gatherings with Friends and Family: Once a week Attends Synagogue Services: Never Active Member of Clubs or [...] - Pt inquired about living in a shelter. Pt is unable to be listed active on the transplant ifpermanent address is at a shelter; rehabilitation is acceptable - Transplant surgery will [...] insulin at home Edited by: Glenn Drake, [employer] at 07/01/2025 1368 Patient educated on transplant surgery evaluation process, [...] 09/20/2019 Added automatically from request for surgery [id number] Coronary artery disease Depression 1995 Diabetes mellitus [...] 1979 BLADDER SURGERY N/A Bladder surgery from [facility] BREAST BIOPSY 2011 BREAST SURGERY 2010 BUNIONECTOMY Right CATARACT EXTRACTION Bilateral 2016 CHOLECYSTECTOMY 1979 ESOPHAGOGASTRODUODENOSCOPY HYSTERECTOMY N/A Hysterectomy from [facility] KNEE SURGERY Bilateral ORAL SURGERY N/A Oral surgery from [facility] OTHER SURGICAL HISTORY 2014 ROOT CANAL WISDOM [...] Son Depression Son Jpamrik Ordaz Asthma Son Jp Ordaz Mental illness Son Jp Ordaz Depression Son Viralarnoldo Ordaz Diabetes Son [...] tablet 3 ergocalciferol (Vitamin D-2) 1.25 MG (50064 UT) capsule Take 1 capsule by mouth [...] EDTAssociated Problem(s): Chronic kidney disease, stage 3b ([facility]) - Creatinine 1.1-1.3 at baseline; Improved to [...] Pichardo - 07/01/2025 1:38 PM EDTAssociated Problem(s): LLQ abdominal pain (Resolved [...] mellitus, with long-term current use of insulin ([facility]) - Last POCT glucose 257, received 6 units correction - Prior to this had received 6 Units correction in last 24h PLAN - Continue Glargine 24 U daily + resistant SSI - Continue to monitor glucose trends * Assessment & Plan Note - Marcelo Pichardo - 07/01/2025 1:24 PM EDTAssociated Problem(s): Diabetic peripheral neuropathy ([facility]) - Last POCT glucose 257, received 6 [...] though not on medication - Stopped seeing washhouse worker after being dismissed for missing too many [...] though not on medication - Stopped seeing washhouse worker after being dismissed for missing too many appointments - Blood smear results pancytopenia not morphologically distinct PLAN - Continue to monitor - Continue Heparin for DVT prophylaxis - Rheumatology referral outpatient * Progress Notes - Venessa Brown - 07/01/2025 11:06 AM EDT Case Management Adult Progress Note Monika Ordaz 64 y.o. female CSN: [id number] Admission: 06/25/2025 2:14 PM Primary Problem: Acute [...] SW will continue to follow and assist. Venesas Brown * Progress Notes - Krista Brand - 07/01/2025 10:50 AM EDT Music Therapy Note Session Information: IM Order: Yes Consult Requested By: Nurse/ [employer] Reason for IM Consult: Emotional Symptoms Contact [...] and reminiscing about her time living in [facility]. Pt talked about singingin choir at school [...] significant concern and would prefer JOHN or intermodal customer service care pending influence on ability to receive transplant - Patient endorsing some burning discomfort that begins in buttocks and radiates down lateral leg, does not feel as though she is getting moved much - Concerned with possible disorientation PLAN - Transplant service to evaluate today and determine if senior living care would be a barrier to futureliver transplant - Delirium protocols - Up to Chair TID, q4 turns * Assessment & Plan Note - Marcelo Pichardo - 07/01/2025 9:16 AM EDTAssociated Problem(s): Self-care deficit - PTOT recjo home health - Patient and family have significant concern and would prefer JOHN or intermodal customer service care pending influence on ability to receive transplant - Patient endorsing some burning discomfort that begins in buttocks and radiates down lateral leg, does not feel as though she is getting moved much - Concerned with possible disorientation PLAN - Transplant service to evaluate today and determine if senior living care would be a barrier to futureliver [...] significant concern and would prefer JOHN or intermodal customer service care pending influence on ability to receive transplant - Patient endorsing some burning discomfort that begins in buttocks and radiates down lateral leg, does not feel as though she is getting moved much - Concerned with possible disorientation PLAN - Transplant service to evaluate today and determine if intermodal customer service care would be a barrier to futureliver [...] AM EDTAssociated Problem(s): Coronary artery disease of [place] artery of [place] heart with stable angina pectoris (CMS/HCC) - Chronic; Continue to hold Crestor * Assessment & Plan Note - Marcelo Pichardo - 07/01/2025 8:17 AM EDTAssociated Problem(s): Hyperlipidemia - Chronic; Continue to hold Crestor * Assessment & Plan Note - Marcelo Pichardo R - 07/01/2025 8:17 AM EDTAssociated Problem(s): Obesity (BMI 30.0-34.9) (Resolved 07/09/2025) - Chronic; Complicates all aspects of care * Progress Notes - Marcelo Pichardo R - 07/01/2025 8:11 AM EDT FAMILY MEDICINE [...] a Rollator though she left this in [place]. 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 - PTOT recs home health - Patient and family have significant concern and would prefer JOHN or senior living care pending influence on ability to receive transplant - Patient endorsing some burning discomfort that begins in buttocks and radiates down lateral leg, does not feel as though she is getting moved much - Concerned with possible disorientation PLAN - Transplant service to evaluate today and determine if intermodal customer service care would be a barrier to futureliver transplant - Delirium protocols - Up to Chair TID, q4 turns Type 2 diabetes mellitus, with long-term current use of insulin (CMS/HCC) Diabetic peripheral neuropathy ([facility]/HCC) - Last POCT glucose 257, received 6 [...] Check Levels Daily Chronic obstructive pulmonary disease ([facility]/HCC) JONATHAN treated with BiPAP - Chronic; on home BiPAP, per RT recs Coronary artery disease of [place] artery of [place] heart with stable angina pectoris ([facility]/HCC) Hyperlipidemia - Chronic; Continue to hold Crestor Obesity (BMI 30.0-34.9) - Chronic; Complicates all aspects of care F: PO E: Monitor and replace as necessary N: Adult diet Diet texture: Regular; Carbohydrate restriction: Consistent Carb 2 (80 gm max/meal); Electrolyte Restriction: Renal GI: no PPI DVT prophylaxis: Heparin Lines and Tubes: PIV CODE: Full Code SOCIAL: Lives with sister in [facility] PT/OT: recommendations: Home with Home Health [...] Care Plan - Gavin Mathew RN - 06/30/2025 10:10 PM EDT Problem: Fall [...] - Continue daily vit D 1000 U; 72074 U to be ordered on 06/30 if [...] - Continue daily vit D 1000 U; 51910 U to be ordered on 06/30 if [...] - Continue daily vit D 1000 U; 52718 U to be ordered on 06/30 if [...] - Continue daily vit D 1000 U; 44789 U to be ordered on 06/30 if [...] - Continue daily vit D 1000 U; 22987 U to be ordered on 06/30 if [...] - Continue daily vit D 1000 U; 69225 U to be ordered on 06/30 if [...] recommended home health; patient and family requested fpc facility PLAN - Contacted transplant service to [...] recommended home health; patient and family requested fpc facility PLAN - Contacted transplant service to determine if placement is a barrier to future liver transplant; transplant ANAYA will come tomorrow to discuss options with patient * Assessment & Plan Note - Veronica Del Valle DO - 06/30/2025 1:48 PM EDT Associated Problem(s): Type 2 diabetes mellitus, with long-term current use of insulin ([facility]) - Last POCT glucose 128 - Received 10 units correction in past 24hrs - Hypoglycemia precautions ordered due to reported hypoglycemia at home PLAN - Continue Glargine 24 U daily + resistant SSI - Continue to monitor glucose trends * Assessment & Plan Note - Veronica Del Valle DO - 06/30/2025 1:48 PM EDT Associated Problem(s): Diabetic peripheral neuropathy ([facility]) - Last POCT glucose 128 - Received 10 units correction in past 24hrs - Hypoglycemia precautions ordered due to reported hypoglycemia at home PLAN - Continue Glargine 24 U daily + resistant SSI - Continue to monitor glucose trends * Assessment & Plan Note - Veronica Del Valle DO - 06/30/2025 1:48 PM EDT Associated Problem(s): Dysphagia - 06/28 DIVERSITY MANAGER diet recommendations; see below - Patient continues to eat full diet without difficulty PLAN - Continue to hold omeprazole * Assessment & Plan Note - Veronica Del Valle DO - 06/30/2025 1:48 PM EDT Associated Problem(s): Heartburn - 06/28 DIVERSITY MANAGER diet recommendations; see below - Patient continues to eat full diet without difficulty PLAN - Continue to hold omeprazole * Assessment & Plan Note - Veronica Del Valle DO - 06/30/2025 1:48 PM EDT Associated Problem(s): Coronary artery disease of [place] artery of [place] heart with stable angina pectoris ([facility]/HCC) - Chronic; Continue to hold Crestor * [...] - Continue daily vit D 1000 U; 67629 U to be ordered on 06/30 if [...] recommended home health; patient and family requested fpc facility PLAN - Contacted transplant service to determine if placement is a barrier to future liver transplant; transplant ANAYA will come tomorrow to discuss options with patient Type 2 diabetes mellitus, with long-term current use of insulin ([facility]) Diabetic peripheral neuropathy ([facility]) - Last POCT glucose 128 - Received 10 units correction in past 24hrs - Hypoglycemia precautions ordered due to reported hypoglycemia at home PLAN - Continue Glargine 24 U daily + resistant SSI - Continue to monitor glucose trends Dysphagia Heartburn - 06/28 DIVERSITY MANAGER diet recommendations; see below - Patient continues to eat full diet without difficulty PLAN - Continue to hold omeprazole Serum ammonia increased ([facility]) - 06/30 Ammonia 61; decreased from 125 [...] if remains low Chronic obstructive pulmonary disease ([facility]) JONATHAN treated with BiPAP - Chronic; on home BiPAP, per RT recs Coronary artery disease of [place] artery of [place] heart with stable angina pectoris ([facility]) Hyperlipidemia - Chronic; Continue to hold Crestor Obesity (BMI 30.0-34.9) - Chronic; Complicates all aspects of care F: PO E: Monitor and replace as necessary N: Adult diet Diet texture: Regular; Carbohydrate restriction: Consistent Carb 2 (80 gm max/meal); Electrolyte Restriction: Renal GI: no PPI DVT prophylaxis: Heparin Lines and Tubes: pIV CODE: Full Code SOCIAL: Currently lives with sister in [facility] PT/OT: consulted, appreciate recommendations Consultants: PT/OT, nutrition, hepatology, nephrology, IR Disposition: Medically Ready for Discharge:Anticipated in 2-4 Days [] CARLOTTA resolution [] Placement Veronica Del Valle DO, Family Medicine, PGY-1 [facility] Cosigned by Fabiana Cunningham MD at 06/30/2025 [...] Gavin Mathew RN Progress: improving Taken 06/29/2025 120 by Stefania eBrmeo RN Plan of Care Reviewed With: patient Taken 06/28/2025 1334 by Aubrey Eason LPN Outcome Evaluation: Patient will verbilize understanding plan of care Goal: Patient-Specific Goal (Individualized) Outcome: Ongoing, Progressing Goal: Absence of Hospital-Acquired Illness or Injury Outcome: Ongoing, Progressing Intervention: Identify and Manage Fall Risk Flowsheets (Taken 06/29/2025 1209 by Stefania Bermeo RN) Safety Promotion/Fall Prevention: fall prevention program maintained [...] (Taken 06/29/2025 1209 by Stefania Bermeo, PARK) Trust Relationship/Rapport: care explained choices provided emotional [...] Function Flowsheets Taken 06/29/2025 1209 by Stefania Bermeo RN Medication Review/Management: medications reviewed Taken 06/28/20252026 by Gavin Mathew, RN Stabilization Measures: legs elevated * Assessment & [...] - Continue daily vit D 1000 U; 91965 U to be ordered on 06/30 if [...] - Continue daily vit D 1000 U; 43834 U to be ordered on 06/30 if [...] - Continue daily vit D 1000 U; 55528 U to be ordered on 06/30 if [...] - Continue daily vit D 1000 U; 48916 U to be ordered on 06/30 if [...] - Continue daily vit D 1000 U; 90257 U to be ordered on 06/30 if [...] - Continue daily vit D 1000 U; 15216 U to be ordered on 06/30 if [...] mellitus, with long-term current use of insulin ([facility]) - Last POCT glucose 144 - Received 0U correction this morning - Hypoglycemia precautions ordered due to reported hypoglycemia at home PLAN - Continue Glargine 24 U daily + resistant SSI - Continue to monitor glucose trends * Assessment & Plan Note - Juliane Rodriguez - 06/29/2025 12:33 PM EDTAssociated Problem(s): Diabetic peripheral neuropathy ([facility]) - Last POCT glucose 144 - Received 0U correction this morning - Hypoglycemia precautions ordered due to reported hypoglycemia at home PLAN - Continue Glargine 24 U daily + resistant SSI - Continue to monitor glucose trends * Assessment & Plan Note - Juliane Rodriguez - 06/29/2025 12:33 PM EDTAssociated Problem(s): Dysphagia - DIVERSITY MANAGER attempted to see patient 06/27; was in procedure - 06/28 DIVERSITY MANAGER diet recommendations: IDDSI Level 7 - Regular and IDDSI Level 0- Thin PLAN - Continue to hold omeprazole * Assessment & Plan Note - Juliane Rodriguez - 06/29/2025 12:33 PM EDTAssociated Problem(s): Heartburn - DIVERSITY MANAGER attempted to see patient 06/27; was in procedure - 06/28 DIVERSITY MANAGER diet recommendations: IDDSI Level 7 - Regular [...] Goal (Individualized) Outcome: Ongoing, Progressing Flowsheets (Taken 06/29/20251208) Patient/Family-Specific Goals (Include Timeframe): patient will have 3 BMs during the shift Goal: Absence of Hospital-Acquired Illness or Injury Outcome: Ongoing, Progressing Intervention: Identify and Manage Fall Risk Flowsheets (Taken 06/29/20251208) Safety Promotion/Fall Prevention: fall prevention program maintained [...] recommended home health; patient and family requested fpc facility PLAN - Plan for placement in long-term care * Assessment & Plan Note - Juliane Rodriguez - 06/29/2025 11:21 AM EDTAssociated Problem(s): Self-care deficit - Patient reports poor PO intake at home in s/o large-volume ascites - Family involved in and amenable to discussion of placement; concerned for declining ability to perform ADLs - PT/OT recommended home health; patient and family requested fpc facility PLAN - Plan for placement in long-term care * Assessment & Plan Note - Juliane Rodriguez - 06/29/2025 11:21 AM EDTAssociated Problem(s): Chronic obstructive pulmonary disease ([facility]) - Chronic; on home BiPAP, per RT recs * Assessment & Plan Note - Juliane Rodriguez - 06/29/2025 11:21 AM EDTAssociated Problem(s): JONATHAN treated with BiPAP - Chronic; on home BiPAP, per RT recs * Assessment & Plan Note - Juliane Rodriguez - 06/29/2025 11:21 AM EDTAssociated Problem(s): 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 Discussed intermodal customer service care placement vs home. She is concerned [...] that her transplant team may frown upon intermodal customer service care. She does not want to spend [...] - Continue daily vit D 1000 U; 88221 U to be ordered on 06/30 if still admitted - Renally dose medications and avoid nephrotoxic agents Other neutropenia ([facility]) Pancytopenia - WBC 2.22 (baseline 4.0) with [...] recommended home health; patient and family requested fpc facility PLAN - Plan for placement in long-term care Type 2 diabetes mellitus, with long-term current use of insulin ([facility]) Diabetic peripheral neuropathy ([facility]) - Last POCT glucose 144 - Received 0U correction this morning - Hypoglycemia precautions ordered due to reported hypoglycemia at home PLAN - Continue Glargine 24 U daily + resistant SSI - Continue to monitor glucose trends Dysphagia Heartburn - DIVERSITY MANAGER attempted to see patient 06/27; was in procedure - 06/28 DIVERSITY MANAGER diet recommendations: IDDSI Level 7 - Regular and IDDSI Level 0- Thin PLAN - Continue to hold omeprazole Chronic obstructive pulmonary disease ([facility]) JONATHAN treated with BiPAP - Chronic; on home BiPAP, per RT recs Coronary artery disease of [place] artery of [place] heart with stable angina pectoris ([facility]) Hyperlipidemia - Chronic; Continue to hold Crestor Obesity (BMI 30.0-34.9) - Chronic; Complicates all aspects of care Hypomagnesemia - 1.6 on admission; Stable at 1.8 06/29 - Given 2g mag IV on 06/27 PLAN - Continue magnesium oxide 400 mg daily - Plan to replete if it remains low Serum ammonia increased ([facility]) - Ammonia 125 06/29 - Patient takes [...] Code SOCIAL: Currently living with sister in [facility] PT/OT: consulted, appreciate recommendations Consultants: PT/OT, Nutrition, [...] - Continue daily vit D 1000 U; 98262 U to be ordered on 06/30 if [...] - Continue daily vit D 1000 U; 01790 U to be ordered on 06/30 if [...] - Continue daily vit D 1000 U; 61369 U to be ordered on 06/30 if [...] - Continue daily vit D 1000 U; 66315 U to be ordered on 06/30 if [...] - Continue daily vit D 1000 U; 17957 U to be ordered on 06/30 if [...] - Continue daily vit D 1000 U; 32874 U to be ordered on 06/30 if [...] recommended home health; patient and family requested fpc facility PLAN - Plan for placement in [...] recommended home health; patient and family requested fpc facility PLAN - Plan for placement in long-term care * Assessment & Plan Note - Chilo Morales MD - 06/29/2025 8:30 AM EDT Associated Problem(s): Type 2 diabetes mellitus, with long-term current use of insulin ([facility]) - Last POCT glucose 151 (before receiving 24U) - Received 2U correction this morning - Hypoglycemia precautions ordered due to reported hypoglycemia at home PLAN - Continue Glargine 24 U daily + resistant SSI - Continue to monitor glucose trends * Assessment & Plan Note - Chilo Morales MD - 06/29/2025 8:30 AM EDT Associated Problem(s): Diabetic peripheral neuropathy ([facility]) - Last POCT glucose 151 (before receiving 24U) - Received 2U correction this morning - Hypoglycemia precautions ordered due to reported hypoglycemia at home PLAN - Continue Glargine 24 U daily + resistant SSI - Continue to monitor glucose trends * Assessment & Plan Note - Chilo Morales MD - 06/29/2025 8:30 AM EDT Associated Problem(s): Dysphagia - DIVERSITY MANAGER attempted to see patient 8/7; was in procedure PLAN - Awaiting DIVERSITY MANAGER eval - Continue to hold omeprazole * Assessment & Plan Note - Chilo Morales MD - 06/29/2025 8:30 AM EDT Associated Problem(s): Heartburn - DIVERSITY MANAGER attempted to see patient 8/7; was in procedure PLAN - Awaiting DIVERSITY MANAGER eval - Continue to hold omeprazole * Assessment & Plan Note - Chilo Morales MD - 06/29/2025 8:30 AM EDT Associated Problem(s): Chronic obstructive pulmonary disease ([facility]) - Chronic; on home BiPAP, per RT recs * Assessment & Plan Note - Chilo Morales MD - 06/29/2025 8:30 AM EDT Associated Problem(s): JONATHAN treated with BiPAP - Chronic; on home BiPAP, per RT recs * Assessment & Plan Note - Chilo Morales MD - 06/29/2025 8:30 AM EDT Associated Problem(s): Coronary artery disease of [place] artery of [place] heart with stable angina pectoris ([facility]) - Chronic; Continue to hold Crestor * [...] Review Outcome: Ongoing, Progressing Flowsheets (Taken 06/28/2025 5854 by Aubrey Eason LPN) Progress: improving Outcome [...] Oral Intake Flowsheets Taken 06/28/20252026 by Gavin Mathew RN Oral Nutrition Promotion: physical activity promoted rest periods promoted social interaction promoted Taken 06/28/2025 1240 by Aubrey Eason LPN Nutrition Interventions: frequent small meals provided Goal: Effective Renal Function Outcome: Ongoing, Progressing Intervention: Monitor and Support Renal Function Flowsheets (Taken 06/28/20252026) Stabilization Measures: legs elevated Medication Review/Management: medications reviewed * Care Plan - Aubrey Eason LPN - 06/28/2025 1:37 PM EDT [...] reviewed * Progress Notes - Laura Garcia CCC-DIVERSITY MANAGER - 06/28/2025 12:39 PM EDT Speech Language [...] GERD (holding home medication at this time) [place] Swallow Protocol (Cruz, 2008) - 3 Oz [...] overt s/s of aspiration. Pt passed the [place] Swallow Protocol suggesting low risk of aspiration. [...] Thin Therapy Frequency: PRN for DT Goals Access Control Specialist Goal Monika Ordaz will maintain adequate hydration/nutrition with optimum safety and efficiency of swallowing function on PO intake without overt signs and symptoms of aspiration for the highest appropriate diet level. Short Term Goal(s) Monika Ordaz will meet nutritional needs by oral diet of regular and thin without s/s of aspiration. [1] Patient Active Problem List Diagnosis ??? Alopecia ??? Chronic obstructive pulmonary disease (CMS/HCC) ??? Chronic kidney disease, stage 3b (CMS/HCC) ??? Coronary artery disease of [place] artery of [place] heart with stable angina pectoris (CMS/HCC) ??? Diabetic peripheral neuropathy (CMS/HCC) ??? Dysphagia ??? Epigastric pain ??? ETD (eustachian tube dysfunction) ??? Heartburn ??? Obesity (BMI 30.0-34.9) ??? JONATHAN treated with BiPAP ??? Physical debility ??? Rheumatoid arthritis with positive rheumatoid factor (CMS/HCC) ??? Spondylosis of lumbar region without myelopathy or radiculopathy ??? Systemic lupus erythematosus (CMS/HCC) ??? Hyperlipidemia ??? Type 2 diabetes mellitus, with long-term current use of insulin (CMS/HCC) ??? Hepatic encephalopathy (CMS/HCC) ??? Acute kidney injury superimposed on stage 3b chronic kidney disease (CMS/HCC) ??? 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) ??? Secondary esophageal varices without bleeding (CMS/HCC) ??? Portal hypertensive gastropathy (CMS/HCC) ??? Cirrhosis of liver with ascites (CMS/HCC) ??? Irritable bowel syndrome with both constipation and diarrhea ??? Carpal tunnel syndrome ??? Hx of spontaneous bacterial peritonitis ??? Other ascites ??? Moderate protein-calorie malnutrition (CMS/HCC) ??? Caregiver not readily available ??? Pleural effusion associated with hepatic disorder ??? LLQ abdominal pain ??? Self-care deficit ??? CARLOTTA (acute kidney injury) (CMS/HCC) ??? Other neutropenia (CMS/HCC) ??? Pancytopenia ??? Hypomagnesemia [2] Past Medical History: Diagnosis Date ??? ADHD (attention deficit hyperactivity disorder) ??? Allergic ??? Anxiety disorder, unspecified Anxiety ??? Bleeding gums ??? Blood in urine ??? Cataract ??? Chronic kidney disease ??? Cirrhosis (CMS/HCC) ??? Colon cancer screening 09/20/2019 Added automatically from request for surgery [id number] ??? Coronary artery disease ??? Depression 1996 ??? Diabetes mellitus type 2 in obese 04/22/2015 ??? Diabetic nephropathy (CMS/HCC) ??? Dry mouth ??? GERD (gastroesophageal reflux disease) ??? Headache ??? Heart murmur ??? HL (hearing loss) ??? Hypoparathyroidism ??? Inflammatory bowel disease ??? Irritable bowel syndrome ??? Jaw pain ??? Obesity ??? Osteoporosis ??? Peptic ulceration ??? Personal history of other diseases of the digestive system History of hepatic disease ??? Personal history of other diseases of the digestive system History of stomach ulcers ??? Personal history of other diseases of the nervous system and sense organs History of sleep apnea ??? Personal history of other endocrine, nutritional and metabolic disease History of diabetes mellitus ??? Personal history of other mental and behavioral disorders History of depression ??? Personal history of urinary (tract) infections History of bladder infections ??? Pre-liver transplant, listed ??? Pure hypercholesterolemia, unspecified High cholesterol ??? Sleep apnea ??? Thyroid condition ??? Type 2 diabetes mellitus ??? Unspecified asthma, uncomplicated Asthma ??? Unspecified osteoarthritis, unspecified site Arthritis [3] Past Surgical History: Procedure Laterality Date ??? APPENDECTOMY 1979 ??? BLADDER SURGERY N/A Bladder surgery from [facility] ??? BREAST BIOPSY 2010 ??? BREAST SURGERY 2009 ??? BUNIONECTOMY Right ??? CATARACT EXTRACTION Bilateral 2015 ??? CHOLECYSTECTOMY 1979 ??? ESOPHAGOGASTRODUODENOSCOPY ??? HYSTERECTOMY N/A Hysterectomy from [facility] ??? KNEE SURGERY Bilateral ??? ORAL SURGERY N/A Oral surgery from [facility] ??? OTHER SURGICAL HISTORY 2014 ??? ROOT CANAL ??? WISDOM TOOTH EXTRACTION * Progress Notes - [...] - Continue daily vit D 1000 U; 23554 U to be ordered on 06/30 if still admitted - Renally dose medications and avoid nephrotoxic agents Other neutropenia (CMS/HCC) Pancytopenia - WBC 1.69 (baseline 4.0) with [...] recommended home health; patient and family requested fpc facility PLAN - Plan for placement in long-term care Type 2 diabetes mellitus, with long-term current use of insulin ([facility]) Diabetic peripheral neuropathy ([facility]) - Last POCT glucose 151 (before receiving 24U) - Received 2U correction this morning - Hypoglycemia precautions ordered due to reported hypoglycemia at home PLAN - Continue Glargine 24 U daily + resistant SSI - Continue to monitor glucose trends Dysphagia Heartburn - DIVERSITY MANAGER attempted to see patient 06/27; was in procedure PLAN - Awaiting DIVERSITY MANAGER eval - Continue to hold omeprazole Chronic obstructive pulmonary disease ([facility]) JONATHAN treated with BiPAP - Chronic; on home BiPAP, per RT recs Coronary artery disease of [place] artery of [place] heart with stable angina pectoris ([facility]) Hyperlipidemia - Chronic; Continue to hold Crestor [...] Code SOCIAL: Currently living with sister in [facility] PT/OT: consulted, appreciate recommendations Consultants: PT/OT, nutrition, hepatology, nephrology, IR Disposition: Medically Ready for Discharge: Anticipated in 2-4 Days [] CARLOTTA resolution [] Placement Veronica Del Valle DO, Family Medicine, PGY-1 [facility] Cosigned by Chilo Morales MD at 06/29/2025 [...] Intervention: Optimize Skin Protection Flowsheets Taken 06/28/2025 0300 Pressure Reduction Techniques: frequent weight shift encouraged [...] and Manage Fall Risk Flowsheets (Taken 06/28/2025 0300) Safety Promotion/Fall Prevention: assistive device/personal items within reach clutter-free environment maintained lighting adjusted fall prevention program maintained room organization consistent nonskid shoes/slippers when out of bed Intervention: Prevent Skin Injury Flowsheets Taken 06/28/2025 0300 Skin Protection: incontinence pads utilized Taken 06/27/20251999 Body Position: weight shifting Intervention: Prevent and Manage VTE (Venous Thromboembolism) Risk Flowsheets (Taken 06/27/20251999) VTE Prevention/Management: medication Intervention: Prevent Infection Flowsheets (Taken 06/28/2025 0300) Infection Prevention: rest/sleep promoted hand hygiene promoted Goal: Optimal Comfort and Wellbeing Outcome: Ongoing, Progressing Intervention: Monitor Pain and Promote Comfort Flowsheets (Taken 06/28/2025 0300) Pain Management Interventions: declines Intervention: Provide Person-Centered Care Flowsheets (Taken 06/28/2025 0300) Trust Relationship/Rapport: care explained choices provided Problem: [...] - Continue daily vit D 1000 U; 16200 U to be ordered on 06/30 if [...] - Continue daily vit D 1000 U; 08509 U to be ordered on 06/30 if [...] - Continue daily vit D 1000 U; 79833 U to be ordered on 06/30 if [...] - Continue daily vit D 1000 U; 26482 U to be ordered on 06/30 if [...] - Continue daily vit D 1000 U; 75036 U to be ordered on 06/30 if [...] - Continue daily vit D 1000 U; 17598 U to be ordered on 06/30 if [...] consulted; recs appreciated - Patient agreeable to fpc facility * Assessment & Plan Note - [...] consulted; recs appreciated - Patient agreeable to fpc facility * Assessment & Plan Note - Chilo Morales MD - 06/27/2025 3:08 PM EDT Associated Problem(s): Type 2 diabetes mellitus, with long-term current use of insulin ([facility]) - BG 245 on arrival; last POCT [...] PM EDT Associated Problem(s): Diabetic peripheral neuropathy ([facility]) - BG 245 on arrival; last POCT [...] - Continue to hold omeprazole - Ordered DIVERSITY MANAGER consult; appreciate recommendations * Assessment & Plan Note - Chilo Morales MD - 06/27/2025 3:08 PM EDT Associated Problem(s): Heartburn - Chronic; advised to hold home omeprazole at most recent nephrology appointment due to concern forAKI PLAN - Continue to hold omeprazole - Ordered DIVERSITY MANAGER consult; appreciate recommendations * Assessment & Plan [...] EDT Associated Problem(s): Coronary artery disease of [place] artery of [place] heart with stable angina pectoris ([facility]) - Chronic; Crestor discontinued at most recent [...] Note Monika Ordaz 64 y.o. female CSN: [id number] Admission: 06/25/2025 2:14 PM Primary Problem: Acute kidney injury superimposed on stage 3b chronic kidney disease (CMS/HCC) Additional Comments SW met with the Family Medicine team to review pts POC. Pts recommendations from PT/OT are home with 24 hour care and home health. Pt told SW in her meeting yesterday that she will not be able to return to her sisters home in [place] and her son is not able to [...] to care for self. On arrival to [facility], patient promptly evaluated by FM Team. Three [...] vit D 1000 U was continued. Weekly 85397 vit D was not resumed during hospital [...] off oftransplant list in favor of pursuing senior living care placement. MELD improved to 21. #Other neutropenia #Pancytopenia Baseline WBC is 4.0 and baseline RBC was 3.0. Most recent WBC was 3.24 with 1.84 absolute neutrophils and most recent RBC was 2.67. Labs were monitored throughout the patient's hospital stay. [id number] was initiated for DVT prophylaxis. Blood smear [...] patient was amenable to going to a fpc facility. 06/28, patient had an episode of [...] nephrology appointment due to concern for CARLOTTA. DIVERSITY MANAGER consult ordered. DIVERSITY MANAGER saw patient and determined no overt s/s dysphagia or aspiration, butadvised to consider further evaluation of esophageal phase of swallow if continuing problems. #COPD #JONATHAN treated with BiPAP Patient continued nightly BiPAP at 12/ per RT recommendations with RT adjusting settings [...] % * Clinician Note - Laura Garcia CCC-DIVERSITY MANAGER - 06/27/2025 1:22 PM EDT Speech Language Pathology - Attempt Patient Name: Monika Ordaz Age: 64 y.o. Today's Date: 06/27/2025 Chart review completed. Attempted to see patient today for clinical swallow evaluation x2. Pt out of room for procedure. DIVERSITY MANAGER team to follow up as schedule allows. * Consults - Delfin Gibson - 06/27/2025 1:00 PM EDT Pastoral Care Note Commodity Industry Analyst visited with Monika, her mother and sister. [...] concerns for organ donors and their families. Commodity Industry Analyst listened empathetically, provided emotional and spiritual support for Monika and her family. Referral From: Commodity Industry Analyst Initiated Pastoral Care Provided For: Patient, Parent(s), Sibling(s) Patient Profile: Consult Reasons: Initial visit Spiritual Assessment: Support Systems/ Spiritual Resources: Nicolasa, Family, Prayer Spiritual Needs: Emotional support, Prayer, Spiritual support Spiritual Issues: Chronic pain/ illness, Family concerns, Change/ transition, Critical Illness Interventions: Interventions Provided: Identify faith/ spiritual coping, Prayer, Spiritual support, Emotional support, Family support, Introduced Patient/Family to Commodity Industry Analyst Services, Supportive Listening, Consulted with care team Pastoral Care Outcomes: Patient Outcomes: Demonstrates lower level of Anxious(ness), Communicates increased satisfaction with hospital experience, Appreciative of Commodity Industry Analyst Support, Gratitude, Expresses intent to participate/comply in plan of care, Demonstrates and/or verbalizes increased comfort * Post-Procedure Note - Marianna Gordon APRN - 06/27/2025 10:07 AM EDT Vascular and Interventional Radiology Brief Postprocedure Note Performed by: Marianna Gordon APRN Sporting Goods Sales Associate: LOUISE Pre-operative Diagnosis: right pleural effusion and [...] 06/27/2025 9:55 AM EDT Pastoral Care Note Commodity Industry Analyst attempted to visit with Monika. She was out of the room, no family present at this time. Commodity Industry Analyst consulted with care team and will follow up as able. Referral From: Commodity Industry Analyst Initiated Pastoral Care Provided For: Patient Patient [...] - Any questions with scheduling please call [phone] Thank you for allowing us to participate in the care of this patient. Marianna Gordon APRN Interventional Radiology [phone] [1] Past Medical History: Diagnosis Date ADHD (attention deficit hyperactivity disorder) Allergic Anxiety disorder, unspecified Anxiety Bleeding gums Blood in urine Cataract Chronic kidney disease Cirrhosis (CMS/HCC) Colon cancer screening 09/20/2019 Added automatically from request for surgery [id number] Coronary artery disease Depression 1996 Diabetes mellitus [...] 1979 BLADDER SURGERY N/A Bladder surgery from [facility] BREAST BIOPSY 2011 BREAST SURGERY 2010 BUNIONECTOMY Right CATARACT EXTRACTION Bilateral 2016 CHOLECYSTECTOMY 1980 ESOPHAGOGASTRODUODENOSCOPY HYSTERECTOMY N/A Hysterectomy from [facility] KNEE SURGERY Bilateral ORAL SURGERY N/A Oral surgery from [facility] OTHER SURGICAL HISTORY 2014 ROOT CANAL WISDOM TOOTH EXTRACTION [3] Social History Tobacco Use Smoking status: Never Passive exposure: Never Smokeless tobacco: Never Vaping Use Vaping status: Never Used Substance Use Topics Alcohol use: Not Currently Drug use: Never [4] No Known Allergies [5] Current Facility-Administered Medications: calcitriol (Rocaltrol) capsule 0.25 mcg, 0.25 mcg, Oral, Daily, Blayne Ordaz DO, 0.25 mcg at 06/26/25 0915 calcium carbonate (Tums) chewable tablet 750 mg, 750 mg, Oral, Daily, Blayne Ordaz DO, 750 mg at06/26/25 0921 capsaicin (Zostrix) 0.025 % cream, , Topical, BID PRN, Blayne Ordaz DO cetirizine (ZyrTEC) tablet 10 mg, 10 mg, Oral, Daily, Blayne Ordaz DO, 10 mg at 06/26/25 0915 cholecalciferol (Vitamin D-3) tablet 1,000 Units, 1,000 Units, Oral, Daily, Blayne Ordaz DO, 1,000 Units at 06/26/25 0915 ciprofloxacin (Cipro) tablet 500 mg, 500 mg, Oral, Daily, Blayne Ordaz DO, 500 mg at 06/26/25 09 glucose (Glutose) [...] 5,000 Units, Subcutaneous, q12h, Veronica Del Valle, DO insulin glargine-yfgn 100 UNIT/ML injection 24 Units, 24 Units, Subcutaneous, Daily, Blayne Ordaz DO, 24 Units at 06/26/25 0915 insulin lispro (Admelog) 100 units/mL injection - Correction - Resistant Dose, 0-10 Units, Subcutaneous, TID with meals, Blayne Ordaz DO, 6 Units at 06/26/25 171 insulin lispro (Admelog) injection - Correction - Nighttime Dose, 0-3 Units, Subcutaneous, Twice atnight, Blayne Ordaz DO lactulose (Chronulac) 10 GM/15ML solution 20 g, 20 g, Oral, TID, Blayne Ordaz DO, 20 g at 06/26/252111 magnesium oxide (Mag-Ox) tablet 400 mg, 400 mg, Oral, Daily, Blayne Ordaz DO, 400 mg at midodrine (Proamatine) tablet 10 mg, 10 mg, Oral, TID, Veronica Del Valle DO, 10 mg at 06/26/252111 rifAXIMin (Xifaxan) tablet 550 mg, 550 mg, Oral, BID, Blayne Ordaz DO, 550 mg at 06/26/252111 [COMPLETED] Insert [...] 10 mL, Intravenous, PRN, Maria Dolores Ontiveros, DARI, DNP * Progress Notes - Juliane Rodriguez [...] - Continue daily vit D 1000 U; 95306 U to be ordered on 06/30 if still admitted - Renally dose medications and avoid nephrotoxic agents Other neutropenia ([facility]) Pancytopenia - WBC 2.26 (baseline 4.0) with [...] consulted; recs appreciated - Patient agreeable to fpc facility Type 2 diabetes mellitus, with long-term current use of insulin ([facility]) Diabetic peripheral neuropathy ([facility]) - BG 245 on arrival; last POCT [...] - Continue to hold omeprazole - Ordered DIVERSITY MANAGER consult; appreciate recommendations Chronic obstructive pulmonary disease ([facility]) JONATHAN treated with BiPAP - Chronic; on BiPAP nightly at home - Sister is bringing home BiPAP this afternoon PLAN - Continue nightly BiPAP at 12/6 per RT recs; RT to adjust settings as appropriate Coronary artery disease of [place] artery of [place] heart with stable angina pectoris (CMS/HCC) Hyperlipidemia - Chronic; Crestor discontinued at most [...] Code SOCIAL: Currently living with sister in [facility] PT/OT: consulted, appreciate recommendations Consultants: PT/OT, nutrition, [...] - Continue daily vit D 1000 U; 59883 U to be ordered on 06/30 if [...] - Continue daily vit D 1000 U; 87766 U to be ordered on 06/30 if [...] - Continue daily vit D 1000 U; 58840 U to be ordered on 06/30 if [...] - Continue daily vit D 1000 U; 70266 U to be ordered on 06/30 if [...] - Continue daily vit D 1000 U; 43762 U to be ordered on 06/30 if [...] - Continue daily vit D 1000 U; 44425 U to be ordered on 06/30 if [...] mellitus, with long-term current use of insulin ([facility]) - BG 245 on arrival; last POCT glucose 120 - Glargine 24 U daily + resistant SSI ordered on admission - Hypoglycemia precautions ordered due to reported hypoglycemia at home PLAN - Continue to monitor BG trends; if any concerns over the afternoon, will adjust regimen as necessary * Assessment & Plan Note - Chilo oMrales MD - 06/26/2025 3:57 PM EDT Associated Problem(s): Diabetic peripheral neuropathy ([facility]) - BG 245 on arrival; last POCT [...] - Continue to hold omeprazole - Ordered DIVERSITY MANAGER consult; appreciate recommendations * Assessment & Plan Note - Chilo Morales MD - 06/26/2025 3:57 PM EDT Associated Problem(s): Heartburn - Chronic; advised to hold home omeprazole at most recent nephrology appointment due to concern forAKI PLAN - Continue to hold omeprazole - Ordered DIVERSITY MANAGER consult; appreciate recommendations * Assessment & Plan [...] EDT Associated Problem(s): Coronary artery disease of [place] artery of [place] heart with stable angina pectoris ([facility]) - Chronic; Crestor discontinued at most recent [...] - Any questions with scheduling please call [phone] Thank you for allowing us to participate in the care of this patient. Shaniqua Mccurdy, ADRI Interventional Radiology [phone] [1] Past Medical History: Diagnosis Date ADHD (attention deficit hyperactivity disorder) Allergic Anxiety disorder, unspecified Anxiety Bleeding gums Blood in urine Cataract Chronic kidney disease Cirrhosis (CMS/HCC) Colon cancer screening 09/20/2019 Added automatically from request for surgery [id number] Coronary artery disease Depression 1995 Diabetes mellitus [...] 1979 BLADDER SURGERY N/A Bladder surgery from [facility] BREAST BIOPSY 2011 BREAST SURGERY 2010 BUNIONECTOMY Right CATARACT EXTRACTION Bilateral 2016 CHOLECYSTECTOMY 1979 ESOPHAGOGASTRODUODENOSCOPY HYSTERECTOMY N/A Hysterectomy from [facility] KNEE SURGERY Bilateral ORAL SURGERY N/A Oral surgery from [facility] OTHER SURGICAL HISTORY 2015 ROOT CANAL WISDOM [...] Oral, Daily, Blayne Ordaz DO, 750 mg at06/26/25920 capsaicin (Zostrix) 0.025 % cream, , Topical, BID PRN, Blayne Ordaz DO cetirizine (ZyrTEC) tablet 10 mg, 10 mg, Oral, Daily, Blayne Ordaz DO, 10 mg at 06/26/25914 cholecalciferol (Vitamin D-3) tablet 1,000 Units, 1,000 Units, Oral, Daily, Blayne Ordaz, , 1,000 Units at 06/26/25914 ciprofloxacin (Cipro) tablet 500 mg, 500 mg, Oral, Daily, Blayne Ordaz DO, 500 mg at 06/26/25920 glucose (Glutose) 40 [...] 5,000 Units, Subcutaneous, q12h, Veronica Del Valle DO insulin glargine-yfgn 100 UNIT/ML injection 24 Units, 24 Units, Subcutaneous, Daily, Blayne Ordaz DO, 24 Units at 06/26/25914 insulin lispro (Admelog) 100 units/mL injection - Correction - Resistant Dose, 0-10 Units, Subcutaneous, TID with meals, Blayne Odraz , 4 Units at 06/26/25 1224 insulin lispro (Admelog) injection - Correction - Nighttime Dose, 0-3 Units, Subcutaneous, Twice atnight, Blayne Ordaz DO lactulose (Chronulac) 10 GM/15ML solution 20 g, 20 g, Oral, TID, Blayne Ordaz, , 20 g at 06/26/25 0915 magnesium oxide (Mag-Ox) tablet 400 mg, 400 mg, Oral, Daily, Blayne Ordaz, , 400 mg at 043 midodrine (Proamatine) tablet 10 mg, 10 mg, Oral, TID, Del Valle, Veronica K, DO rifAXIMin (Xifaxan) tablet 550 mg, 550 [...] Review Outcome: Ongoing, Progressing Flowsheets (Taken 06/26/2025 1159) Progress: improving Outcome Evaluation: Patient will verbalize understanding and participate in plann of care this shift Plan of Care Reviewed With: patient Goal: Patient-Specific Goal (Individualized) Outcome: Ongoing, Progressing Flowsheets (Taken 06/26/2025 08) Patient/Family-Specific Goals (Include Timeframe): Patient labs will be monitored and treated per order Individualized Care Needs: monitor labs Anxieties, Fears or Concerns: none stated Goal: Absence of Hospital-Acquired Illness or Injury Outcome: Ongoing, Progressing Intervention: Identify and Manage Fall Risk Flowsheets (Taken 06/26/2025 08) Safety Promotion/Fall Prevention: activity supervised clutter-free environment maintained fall prevention program maintained nonskid shoes/slippers when out of bed safety round/check completed Intervention: Prevent Skin Injury Flowsheets Taken 06/26/2025 115 Skin Protection: incontinence pads utilized Taken 06/26/2025 08 Body Position: weight shifting Intervention: Prevent and [...] Intervention: Provide Person-Centered Care Flowsheets (Taken 06/26/2025 115) Trust Relationship/Rapport: care explained choices provided emotional support provided empathic listening provided questions answered questions encouraged Problem: Acute Kidney Injury/Impairment Goal: Fluid and Electrolyte Balance Outcome: Ongoing, Progressing Intervention: Monitor and Manage Fluid and Electrolyte Balance Flowsheets (Taken 06/26/2025 1159) Fluid/Electrolyte Management: fluids provided Goal: Improved Oral Intake Outcome: Ongoing, Progressing Intervention: Promote and Optimize Oral Intake Flowsheets (Taken 06/26/2025 115) Oral Nutrition Promotion: rest periods promoted Nutrition Interventions: frequent small meals provided Goal: Effective Renal Function Outcome: Ongoing, Progressing Intervention: Monitor and Support Renal Function Flowsheets (Taken 06/26/2025 1159) Stabilization Measures: legs elevated Medication Review/Management: medications reviewed * Progress Notes - Venessa Brown - 06/26/2025 11:47 AM EDT Case Management Adult Initial Progress Note Monika Ordaz 64 y.o. female CSN: [id number] Admission: 06/25/2025 2:14 PM Primary Problem: Acute kidney injury superimposed on stage 3b chronic kidney disease (CMS/HCC) General Education Instructor reviewed chart and spoke with patient at bedside to complete this Initial Case Management Assessment. Pt confirmed that her home address and PCP listed in Epic is correct. Pt stated thatshe has been living with her sister in [place] since mid May. Pts mother also is currently staying with pts sister. PCP: Alvarez Ordaz MD Emergency Contact: Extended Emergency Contact Information Primary Emergency Contact: OrdazViral Mobile Relation: Son Preferred language: Lao Automation And Controls Manager needed? No Secondary Emergency Contact: Pankaj Bernalin Mobile Relation: Sister Insurance: Primary Visit Coverage Payer Plan Sponsor Code Group Number Group Name HUMANA MEDICARE HUMANA MEDICARE [id number] [employer] [place] Primary Visit Coverage Subscriber Subscriber ID Subscriber Name Subscriber SSN Subscriber Address [id number] MONIKA ORDAZ [id number] [place], [place] [id number] Secondary Visit Coverage Payer Plan Sponsor Code Group Number Group Name [place] [facility] Secondary Visit Coverage Subscriber Subscriber ID Subscriber Name Subscriber SSN Subscriber Address [id number] MONIKA ORDAZ [id number] [place], [place] [address] Patient information: Primary Caregiver: Self Support System: Immediate family Daily Living Activities: Functional Status: Minimum assistance Living Arrangements: Family Type of Residence: Private residence [address] [place] [address] Smoker in the Home?: No Current DME: Equipment Currently Used at Home: Bipap, walker, rollator Income Information: Income Source: Disabled Income/Expense Information: Expenses exceed income Current Resources Utilized: Food [place] Housing Circumstances-Z Codes: Housing Circumstances (select all that apply): Low Income (101-300% Federal Poverty Guidlines) - Z596 Anticipated Discharge Date: tBD Patient's Discharge Goal: Pt stated that she would like to go to rehab or fpc facility.Pt does not feel that her sister can care for her and she does not feel safe living on her own. Assistance Available at Discharge: Pt is currently living with her sister but usually lives alone in a trailer in [place] Discharge Transport: May need assistance Follow Up Transport: Sister or son Home Health / Home Infusion / Outpatient Dialysis Services: None reported Living Will/Advance Directive/Power of Billboard Installer /Guardian: Have you reviewed your Advance Directive and is it valid for this stay?: No Advance Directive: Patient would not like information Information Provided on Healthcare Directives: No Pre-existing DNR/DNI Order: No Patient Requests Assistance: No Pt was given the 5 Wishes workbook. Additional Comments: Pt uses the [facility] pharmacy for her medications. Venessa Brown * Consults - Medina Real RD - 06/26/2025 10:40 AM EDTAssociated Order(s): IP CONSULT TO NUTRITION SERVICES Adult Nutrition Evaluation Note Monika Ordaz 64 y.o. female CSN: [id number] Room/Bed 723/723A Nutrition evaluation type: assessment Reason for evaluation: provider consult Hospital course: 64y/o female admitted 06/25 for CARLOTTA on CKD and inability to care for herself. Past medical/ surgical history: Past Medical History[1] Surgical History[2] Social history: None, no faith needs Additional comments: 06/26: RD visited pt [...] 30.05 Weight Evaluation: Obese-Class 1 (BMI 30-34.9) Hope Body Weight (kg): 57 Percent Hope Body Weight: 144 Adjusted Body Weight (kg): [...] Regular Adult Carbohydrate Restriction: Consistent CHO 3 (8924-6182 Deniz, 95 g/meal) Fat Restriction: Fat-free Electrolyte [...] <200mg/dl during admission Acuity Level: 1 Medina Jose Real, RD, LD, MS [1] Past Medical History: Diagnosis Date ADHD (attention deficit hyperactivity disorder) Allergic Anxiety disorder, unspecified Anxiety Bleeding gums Blood in urine Cataract Chronic kidney disease Cirrhosis (CMS/HCC) Colon cancer screening 09/20/2019 Added automatically from request for surgery [id number] Coronary artery disease Depression 1995 Diabetes mellitus [...] 1979 BLADDER SURGERY N/A Bladder surgery from [facility] BREAST BIOPSY 2011 BREAST SURGERY 2010 BUNIONECTOMY Right CATARACT EXTRACTION Bilateral 2016 CHOLECYSTECTOMY 1979 ESOPHAGOGASTRODUODENOSCOPY HYSTERECTOMY N/A Hysterectomy from [facility] KNEE SURGERY Bilateral ORAL SURGERY N/A Oral surgery from [facility] OTHER SURGICAL HISTORY 2014 ROOT CANAL WISDOM [...] tablet 1 ergocalciferol (Vitamin D-2) 1.25 MG (92967 UT) capsule Take 1 capsule by mouth [...] AM EDT Occupational Therapy Evaluation/Discharge Patient Name: Moniak Ordaz Today's Date: 06/26/2025 OT Discharge Recommendations: Home with 24 hour assistance, Home health PT, Home health OT Equipment Recommended: Patient owns appropriate equipment History Monika Ordaz is 64 y.o. female admitted 06/25/2025 for work-up of Acute kidney injury superimposed on stage 3b chronic kidney disease (CMS/HCC). Problem List Active Hospital Problems Diagnosis Date Noted Other neutropenia (CMS/HCC) 06/26/2025 Pancytopenia 06/26/2025 Hypomagnesemia 06/26/2025 Pleural effusion associated with hepatic disorder 06/25/2025 LLQ abdominal pain 06/25/2025 Self-care deficit 06/25/2025 CARLOTTA (acute kidney injury) ([facility]) 06/25/2025 Hx of spontaneous bacterial peritonitis 03/01/2025 Acute kidney injury superimposed on stage 3b chronic kidney disease ([facility]) 10/14/2024 Type 2 diabetes mellitus, with long-term current use of insulin ([facility]) 01/11/2024 Cirrhosis of liver with ascites ([facility]) 11/30/2022 Hyperlipidemia 07/17/2021 Obesity (BMI 30.0-34.9) 06/27/2020 JONATHAN treated with BiPAP 12/03/2019 Heartburn 08/02/2019 Chronic kidney disease, stage 3b ([facility]) 08/24/2018 Physical debility 08/24/2018 Chronic obstructive pulmonary disease ([facility]) 08/22/2018 Coronary artery disease of [place] artery of [place] heart with stable angina pectoris ([facility]) 08/22/2018 Dysphagia 05/17/2018 Diabetic peripheral neuropathy ([facility]) 01/07/2017 Procedures Past Medical History Patient has a past medical history of ADHD (attention deficit hyperactivity disorder), Allergic, Anxiety disorder, unspecified, Bleeding gums, Blood in urine, Cataract, Chronic kidney disease, Cirrhosis ([facility]), Colon cancer screening (09/20/2019), Coronary artery disease, Depression (1995), Diabetes mellitus type 2 in obese (04/22/2015), Diabetic nephropathy ([facility]), Dry mouth, GERD (gastroesophageal reflux disease), Headache, [...] Bunionectomy (Right); Esophagogastroduodenoscopy; Other surgical history (2014); [place] tooth extraction; Breast surgery (2009); and Root canal. Precautions Medical Precautions: Fall precautions Subjective Pt agreeable to OT eval. Participants in Care Family/Caregiver Present: No Automation And Controls Manager: Not Applicable Presentation Oxygen Therapy: None (Room [...] (Sister) Level of Mobility: Ambulatory- community Mobility Worth: Independent gait with device History of Falls: [...] Mobility Bed Mobility Exam: Scooting/Bridging Level of Worth: Stand-by assist Physical/Nonphysical Assist: Supervision Assistive Device: Bed rails Bed Mobility Exam: Supine to Sit Level of Worth: Stand-by assist Physical/Nonphysical Assist: Supervision, HOB elevated Assistive Device: Bed rails Transfers Transfer Exam: Sit to stand Level of Worth: Contact guard Physical/Nonphysical Assist: Supervision, Verbal Cues, Minimal cues Assistive Device: Rollator Transfer Exam: Stand to Sit Level of Worth: Stand-by assist Physical/Nonphysical Assist: Supervision, Verbal Cues, Minimal cues Assistive Device: Rollator Transfer Exam: Bed to Chair/Chair to Bed Level of Worth: Contact guard Physical/Nonphysical Assist: Supervision, Verbal Cues, Minimal cues Assistive Device: Rollator Toilet Transfer Level of Worth: Stand-by assist Physical/Nonphysical Assist: Supervision, Verbal Cues, [...] SBA, Setup Where Assessed: Toilet Standardized Assessments [facility] 6-Click Daily Activities Help from Other: Don/Doff Regular Lower Body Clothings: None Help From Other: Bathing: None Help From Other: Toileting: None Help From Other: Don/Doff Upper Body Clothings: None Help From Other: Grooming: None Help From Other: Eating Meals: None [facility] 6 Click - Daily Activities Score: 24 [...] on stage 3b chronic kidney disease (CMS/HCC). Problem List Active Hospital Problems Diagnosis Date Noted Other neutropenia (CMS/HCC) 06/26/2025 Pancytopenia 06/26/2025 Hypomagnesemia 06/26/2025 Pleural effusion associated with hepatic disorder 06/25/2025 LLQ abdominal pain 06/25/2025 Self-care deficit 06/25/2025 CARLOTTA (acute kidney injury) (CMS/HCC) 06/25/2025 Hx of spontaneous bacterial peritonitis 03/01/2025 Acute kidney injury superimposed on stage 3b chronic kidney disease ([facility]) 10/14/2024 Type 2 diabetes mellitus, with long-term current use of insulin ([facility]) 01/11/2024 Cirrhosis of liver with ascites ([facility]) 11/30/2022 Hyperlipidemia 07/17/2021 Obesity (BMI 30.0-34.9) 06/27/2020 JONATHAN treated with BiPAP 12/03/2019 Heartburn 08/02/2019 Chronic kidney disease, stage 3b ([facility]) 08/24/2018 Physical debility 08/24/2018 Chronic obstructive pulmonary disease ([facility]) 08/22/2018 Coronary artery disease of [place] artery of [place] heart with stable angina pectoris ([facility]) 08/22/2018 Dysphagia 05/17/2018 Diabetic peripheral neuropathy ([facility]) 01/07/2017 Procedures Past Medical History Patient has a past medical history of ADHD (attention deficit hyperactivity disorder), Allergic, Anxiety disorder, unspecified, Bleeding gums, Blood in urine, Cataract, Chronic kidney disease, Cirrhosis ([facility]), Colon cancer screening (09/20/2019), Coronary artery disease, Depression (1995), Diabetes mellitus type 2 in obese (04/22/2015), Diabetic nephropathy ([facility]), Dry mouth, GERD (gastroesophageal reflux disease), Headache, [...] 2016); Bunionectomy (Right); Esophagogastroduodenoscopy; Other surgical history (2015); [place] tooth extraction; Breast surgery (2010); and Root canal. Precautions Medical Precautions: Fall precautions Subjective Pt agreeable to participating in session. Participants in Care Family/Caregiver Present: No Automation And Controls Manager: Not Applicable Presentation Oxygen Therapy: None (Room [...] (Sister) Level of Mobility: Ambulatory- community Mobility Worth: Independent gait with device History of Falls: [...] Mobility Bed Mobility Exam: Scooting/Bridging Level of Worth: Stand-by assist Physical/Nonphysical Assist: Supervision Assistive Device: Bed rails Bed Mobility Exam: Supine to Sit Level of Worth: Stand-by assist Physical/Nonphysical Assist: Supervision, HOB elevated Assistive Device: Bed rails Transfers Transfer Exam: Sit to stand Level of Worth: Contact guard Physical/Nonphysical Assist: Supervision, Verbal Cues, Minimal cues Assistive Device: Rollator Transfer Exam: Stand to Sit Level of Worth: Stand-by assist Physical/Nonphysical Assist: Supervision, Verbal Cues, Minimal cues Assistive Device: Rollator Toilet Transfer Level of Worth: Stand-by assist Physical/Nonphysical Assist: Supervision Type of [...] sitting), upright posture, increased gait speed and rogers. Therapeutic Exercise (23 minutes) Pt performed the [...] fatigue. Standardized Assessments Standardized Assessments Standardized Assessments: [facility] 6-Clicks Mobility Assessment [facility] 6-Clicks Mobility Assessment Difficulty patient has turning [...] 3-5 steps with a railing?: A little [facility] 6-Clicks Mobility Assessment Total : 23 No [...] at 1:17 PM. * Progress Notes - Veroinca Del Valle DO - 06/26/2025 6:13 AM [...] - Continue daily vit D 1000 U; 19140 U to be ordered on 06/30 if still admitted - Renally dose medications and avoid nephrotoxic agents Other neutropenia (CMS/HCC) Pancytopenia - WBC 1.89 (baseline 4.0) with [...] mellitus, with long-term current use of insulin ([facility]) Diabetic peripheral neuropathy ([facility]) - BG 245 on arrival; last POCT [...] - Continue to hold omeprazole - Ordered DIVERSITY MANAGER consult; appreciate recommendations Chronic obstructive pulmonary disease ([facility]) JONATHAN treated with BiPAP - Chronic; on BiPAP nightly at home - Sister is bringing home BiPAP this afternoon PLAN - Continue nightly BiPAP at 12/6 per RT recs; RT to adjust settings as appropriate Coronary artery disease of [place] artery of [place] heart with stable angina pectoris ([facility]) Hyperlipidemia - Chronic; Crestor discontinued at most recent nephrology appointment PLAN - Continue to hold Crestor Obesity (BMI 30.0-34.9) - Chronic; Complicates all aspects of care Hypomagnesemia - 1.6 on admission; 1.7 8/6 PLAN - Consider repletion if continues to downtrend F: PO E: Monitor and replace as necessary N: Adult diet Diet texture: Regular; Carbohydrate restriction: Consistent Carb 3 (95 gm max/meal); Sodium restriction: 2,000 mg Na; Fat restriction: Fat-Free; Electrolyte Restriction: Renal GI: no PPI DVT prophylaxis: SCDs Lines and Tubes: pIV CODE: Full Code SOCIAL: Currently living with sister in [facility] PT/OT: consulted, appreciate recommendations Consultants: PT/OT, nutrition, nephro, hepato, IR Disposition: Medically Ready for Discharge: Anticipated in 2-4 Days [] Resolution of CARLOTTA [] PT/OT recommendations for placement Veronica Del Valle DO, Family Medicine, PGY-1 [facility] Cosigned by Chilo Morales MD at 06/26/2025 [...] daily, Vit D 1000 U daily and 76293 U weekly (Sundays) PLAN: - Admitted to [...] - Continue daily vit D 1000 U; 61487 U to be ordered on 06/30 if [...] daily, Vit D 1000 U daily and 67095 U weekly (Sundays) PLAN: - Admitted to [...] - Continue daily vit D 1000 U; 43274 U to be ordered on 06/30 if [...] daily, Vit D 1000 U daily and 72738 U weekly (Sundays) PLAN: - Admitted to [...] - Continue daily vit D 1000 U; 21598 U to be ordered on 06/30 if [...] daily, Vit D 1000 U daily and 00657 U weekly (Sundays) PLAN: - Admitted to [...] - Continue daily vit D 1000 U; 59663 U to be ordered on 06/30 if [...] daily, Vit D 1000 U daily and 20064 U weekly (Sundays) PLAN: - Admitted to [...] - Continue daily vit D 1000 U; 19263 U to be ordered on 06/30 if [...] daily, Vit D 1000 U daily and 71991 U weekly (Sundays) PLAN: - Admitted to [...] - Continue daily vit D 1000 U; 32823 U to be ordered on 06/30 if still admitted - Renally dose medications and avoid nephrotoxic agents * Assessment & Plan Note - Blayne Ordaz DO - 06/26/2025 2:33 AM EDTAssociated Problem(s): Dysphagia Advised to hold omeprazole at most recent nephrology appointment due to CARLOTAT; continue to hold * Assessment & Plan [...] AM EDTAssociated Problem(s): Coronary artery disease of mashpee artery of mashpee heart with stable angina pectoris (CMS/HCC) Crestor [...] Goal: Absence of Fall and Fall-Related Injury 06/26/2025223 by Bia Carrillo Outcome: Ongoing, [...] Intervention: Optimize Skin Protection Flowsheets Taken 06/26/2025 0000 Pressure Reduction Techniques: frequent weight shift encouraged Pressure Reduction Devices: positioning supports utilized Skin Protection: incontinence pads utilized Taken 06/25/20252014 Activity Management: activity adjusted per tolerance Head of Bed (HOB) Positioning: HOB elevated Intervention: Promote and Optimize Oral Intake Flowsheets (Taken 06/26/2025 0000) Oral Nutrition Promotion: rest periods promoted Nutrition [...] and Support Renal Function Flowsheets Taken 06/26/2025 022 Stabilization Measures: legs elevated Taken 06/26/2025 Medication [...] mellitus, with long-term current use of insulin ([facility]) - Takes glargine 48 U daily and [...] PM EDT Associated Problem(s): Diabetic peripheral neuropathy ([facility]) - Takes glargine 48 U daily and [...] not limited to: EKG. On arrival to [facility], patient promptly evaluated by FM Team. Three [...] daily, Vit D 1000 U daily and 95317 U weekly (Sundays) PLAN: - Admitted to [...] - Continue daily vit D 1000 U; 40755 U to be ordered on 06/30 if [...] mellitus, with long-term current use of insulin ([facility]) Diabetic peripheral neuropathy ([facility]) - Takes glargine 48 U daily and [...] continue to hold Chronic obstructive pulmonary disease ([facility]) JONATHAN treated with BiPAP Continue nightly BiPAP at 12/6 per RT recs; RT to adjust settings as appropriate Coronary artery disease of mash[place] artery of mash[place] heart with stable angina pectoris ([facility]) Hyperlipidemia Crestor discontinued at most recent nephrology [...] SOCIAL: Lives at home with family in [place], [place] PT/OT: consulted, appreciate recommendations Consultants: PT/OT Disposition: Medically Ready for Discharge:Anticipated in 2-4 Days [ ] Resolution of CARLOTTA [ ] PT/OT recs [ ] Clinical stability Dayne Medel DO, , MS Family Medicine, PGY-3 [facility] Blayne Ordaz DO PGY-2, Family Medicine [facility] Cosigned by Chilo Morales MD at 06/26/2025 3:32 PM EDT Associated attestation - Chilo Morales MD - 06/26/2025 3:32 PM EDT I discussed the case with the resident/fellow and agree with the findings and plan as documented. * ED Provider Notes - Mildred Cervantes DO - 06/25/2025 2:14 PM EDT Images from the original note were not included. Diagnosis management comments: IMildred DO, saw and evaluated the patient with the medical student. I discussed the case with the medical student and agree with the findings and plan as documented. I personally performed the Exam and Medical Decision Making. - HPI Chief Complaint Patient presents with Abnormal Lab Creatinine mentioned by PT. Monika Ordaz is a (an) 64 y.o. female with [facility] cirrhosis awaiting liver transplant, CKD, T2DM,COPD, CAD brought to the emergency department by EMS for worsening kidney function. She was seen byher bungy jump master earlier today who noted she has had worsening kidney function with a baseline serum creatinine at about 1.4 which had risen to 2.3. Patient states she gets paracentesis once weekly every and sometimes also thoracentesis. She is compliant with her medications. She states she occasionally gets heart pain with shortness of breath for which she was seen at [facility] two days ago. She currently denies chest [...] deficit present. Mental Status: She is alert. Shamir Coma Scale Score: 15 ED Course [...] All Other Orders Ordered Status Ordering Provider 06/25/25 193 CBC and Differential Morning draw Order ID Start Status Ordering Provider [id number] 06/26/25 0400 Final result ORDAZ, BLAYNE S [id number] 06/27/25 0400 Acknowledged ORDAZ, BLAYNE S 06/28/25 0400 Scheduled ORDAZ, BLAYNE S 06/29/25 0400 Scheduled ORDAZ, BLAYNE S 06/30/25 0400 Scheduled ORDAZ, BLAYNE S Acknowledged ORDAZ, BLAYNE S 06/25/25 193 Magnesium, Plasma Morning draw Order ID Start Status Ordering Provider [id number] 06/26/25 0400 Final result ORDAZ, BLAYNE S [id number] 06/27/25 0400 Acknowledged ORDAZ, BLAYNE S 06/28/25 0400 Scheduled ORDAZ, BLAYNE S 06/29/25 0400 Scheduled ORDAZ, BLAYNE S 06/30/25 0400 Scheduled ORDAZ, BLAYNE S Acknowledged ORDAZ, BLAYNE S 06/25/25 193 Phosphorus, Plasma Morning draw Order ID Start Status Ordering Provider [id number] 06/26/25 0400 Final result ORDAZ, BLAYNE S [id number] 06/27/25 0400 Acknowledged ORDAZ, BLAYNE S 06/28/25 0400 Scheduled ODRAZ, BLAYNE S 06/29/25 0400 Scheduled ORDAZ, BLAYNE S 06/30/25 0400 Scheduled ORDAZ, BLAYNE S Acknowledged ORDAZ, BLAYNE S 06/25/25 193 Comprehensive metabolic panel Morning draw Order ID Start Status Ordering Provider [id number] 06/26/25 0400 Final result BLAYNE ORDAZ [id number] 06/27/25 0400 Acknowledged BLAYNE ORDAZ 06/28/25 0400 Scheduled BLAYNE ORDAZ 06/29/25 0400 Scheduled BLAYNE ORDAZ 06/30/25 0400 Scheduled BLAYNE ORDAZ Acknowledged BLAYNE ORDAZ 06/25/25 193 Vital Signs Every 4 hours Acknowledged BLAYNE ORDAZ 06/25/25 193 Sequential compression device Until discontinued Comments: SCDs must be in place and turned on EXCEPT when ACTIVELY ambulating. Acknowledged BLAYNE ORDAZ 06/25/25 193 Do Not Give Nicotine Replacement Until discontinued Acknowledged BLAYNE ORDAZ 06/25/25 193 Full code Continuous Acknowledged BLAYNE ORDAZ 06/25/25 193 Diet effective now Canceled BLAYNE ORDAZ 06/25/25 193 Mobility Orders Until discontinued Acknowledged BLAYNE ORDAZ 06/25/25 193 No Smoking Until discontinued Acknowledged BLAYNE ORDAZ 06/25/25 193 Notify physician (specify parameters) Until discontinued Acknowledged BLAYNE ORDAZ 06/25/25 193 Insert peripheral IV Once Placed in And [...] 1 View One time imaging Final result SCOCCA, MILDRED L 06/25/25 1444 ECG Adult Once Final result MILDRED CERVANTES 06/25/25 1444 CBC w/diff STAT Final result MILDRED CERVANTES 06/25/25 1444 PT-INR STAT Final result MILDRED CERVANTES 06/25/25 1444 CMP STAT Final result MILDRED CERVANTES 06/25/25 1444 Magnesium STAT Final result MILDRED CERVANTES 06/25/25 1444 Phosphorus STAT Final result MILDRED CERVANTES 06/25/25 1427 POCT glucose meter PROCEDURE ONCE Final result POCT, GENERIC PROVIDER ED Course as of 06/26/252033Jun 25, [id number] I discussed this patient with hospital medicine who states patient [CS] ED Course User Index [CS] Mildred Cervantes, DO Social Determinates of Health Risks (including Economic [...] she is usually always admitted here at [facility] so that transplantis available. I discussed this with Internal Medicine (Dr. Magaña) who stated Transplant is available at [facility] as well as that patient could be transported to [facility] for her scheduled IR thoracentesis and paracentesis and then transferred back to [facility]. I discussed this with patient who is now agreeable for transfer to [facility] and admission to family medicine. I spoke with Family Medicine team at [facility] and they are agreeable to admit. Ultimately, this patient was Was admitted (Admission) There were no encounter diagnoses.. Patient believed to require admission for the listed diagnoses. The family medicine service was consulted for admission and was agreeable to admit to Acute Floor (Med/Surg). ED Prescriptions None Disposition Admit Admitting/Attending Physician: CHILO MORALES [[id number]] Provider Care Team: FAMILY MEDICINE [58] Are they the primary team?: Yes [1] - Randal Medina [facility] Candidate, 202506/26/2025 8:34 PM Cat DO Cervantes [facility] Emergency Medicine PGY-3 [1] Past Medical History: Diagnosis Date ADHD (attention deficit hyperactivity disorder) Allergic Anxiety disorder, unspecified Anxiety Bleeding gums Blood in urine Cataract Chronic kidney disease Cirrhosis (CMS/HCC) Colon cancer screening 09/20/2019 Added automatically from request for surgery [id number] Coronary artery disease Depression 1996 Diabetes mellitus [...] 1979 BLADDER SURGERY N/A Bladder surgery from [facility] BREAST BIOPSY 2011 BREAST SURGERY 2010 BUNIONECTOMY Right CATARACT EXTRACTION Bilateral 2016 CHOLECYSTECTOMY 1979 ESOPHAGOGASTRODUODENOSCOPY HYSTERECTOMY N/A Hysterectomy from [facility] KNEE SURGERY Bilateral ORAL SURGERY N/A Oral [...] Sister Lj Bernal Dementia Maternal Grandmother Christine Sanchezett Alzheimer's disease Maternal Grandmother Christine Mayelin Emphysema Maternal Grandmother Christine Mayelin No Known [...] Mauro MD - 06/28/2025 8:52 AM EDT Kadie Renteria MD, personally verified the history, examined the patient, discussed with the student and resident and performed the medical decision making. I agree with the documentation and plan of care. * ED Triage Notes - Evelio Hinojosa - 06/25/2025 2:14 PM EDT PT was at [facility] Nephrology. Staff notified PT of an abnormal lab value and encouraged immediate medical attention via Emergency Department. Vitals stable during transport. documented in this encounter Plan of Treatment Upcoming Encounters Date Type Department Care Team (Late st Contact Info) Description 08/20/2025 9:30 AM EDT Clinical Support [facility] [place] [address] [facility] [address] [place] [address] 08/20/2025 10:30 AM EDT Social Work [facility] [place] [address] [facility] [address] [place] [address] [place] [address] 08/20/2025 11:00 AM EDT Office Visit [facility] [place] [address] [facility] [address] [place] [address] Jude Duque MD [address] [facility] [address] [place] [address] 08/22/2025 11:15 AM EDT Appointment [facility] [address] [place] [address] 08/22/2025 12:15 PM EDT Appointment [facility] [address] [place] [address] 08/26/2025 1:00 PM EDT Office Visit [facility] Endocrinology [address] [place] [phone] Miranda Hobson P, [employer] [address] [place] [phone] 08/29/2025 10:00 AM EDT Appointment [facility] [address] [place] [address] 08/29/2025 11:00 AM EDT Appointment [facility] [address] [place] [address] 09/05/2025 10:00 AM EDT Appointment [facility] [address] [place] [address] 09/05/2025 11:00 AM EDT Appointment [facility] [address] [place] [address] Scheduled Orders Name Type Priority Associated Diagnoses Orde r Schedule Body Fluid Culture and Gram Stain - Pleural Left Microbiology Routine Once (Lab) for 1 Occurrences starting 07/04/2025 until 07/04/2025 Scheduled Referrals Name Type Priority Associated Diagnoses Order Schedule Discharge Ambulatory referral to Family Medicine Outpatient Referral Routine CARLOTTA (acute kidney injury) ([facility]) Expected: 07/23/2025, Expires: 01/10/2027 documented as of [...] POCT glucose meter (07/09/2025 11:23 AM EDT) POCT Glucose 199(H) 74 - 99 mg/dL 07/09/2025 11:25 AM EDT [facility] Comment:Accuracy of [...] for testing. Comment 07/09/2025 11:25 AM EDT [facility] Steamfitter ID Nadia Salazar 11:25 AM EDT [facility]ARE [facility] Device ID [id number] 07/09/2025 11:25 AM EDT [facility] Specimen Type POC Capillary 07/09/2025 11:25 AM EDT [facility] Blood Capillary blood specimen / Unknown 07/09/2025 11:23 AM EDT 07/09/2025 11:25 AM EDT Kayla Reed MD LAB POINT OF CARE TEST DOCKED DEVICE UNSOLICITED RESULTS Final Result Performing Organization Address City/[facility] de Phone Number [facility] [address] [place] [address] * (ABNORMAL) POCT glucose meter (07/09/2025 8:10 AM EDT) POCT Glucose 126(H) 74 - [...] Comment 07/09/2025 8:12 AM EDT [facility] Steamfitter ID Reyes Elias 07/09/2025 8:12 AM EDT [facility]ALTH[facility]ARE [facility] Device ID [id number] 07/09/2025 8:12 AM EDT [facility] Specimen Type POC Capillary 07/09/2025 8:12 AM EDT [facility] Blood Capillary blood specimen / Unknown 07/09/2025 8:10 AM EDT 07/09/2025 8:12 AM EDT Kayla Reed MD LAB POINT OF CARE TEST DOCKED DEVICE UNSOLICITED RESULTS Final Result Performing Organization Address City/[facility] Co de Phone Number [facility]ARE [facility] [address] [place] [address] * (ABNORMAL) Protime-INR (07/09/2025 5:52 AM EDT) Prothrombin Time 23.5(H) 12.0 - 14.3 sec 07/09/2025 6:07 AM EDT [facility] INR 2.0(H) 0.9 - 1.1 07/09/2025 6:07 AM EDT [facility] Blood Venous blood specimen / Unknown Venipuncture / Unknown 07/09/2025 5:52 AM EDT 07/09/2025 5:54 AM EDT Narrative [facility] - 07/09/2025 6:07 AM EDT [...] recurrent DE INR 2.5 to 3.5 us Fabiana Cunningham MD LAB BLOOD ORDERABLES Final Resu lt Performing Organization Address City/[facility]/ZIP Co de Phone Number [facility] [address] [place] [address] * (ABNORMAL) POCT glucose meter (07/09/2025 3:59 AM EDT) [facility] Signature POCT Glucose 108(H) 74 - 99 mg/dL 07/09/2025 4:01 AM EDT [facility] Comment:Accuracy of a [...] for testing. Comment 07/09/2025 4:01 AM EDT [facility] Steamfitter ID Love Gore 4:01 AM EDT HEALTHCARE LAB Device ID [id number] 07/09/2025 4:01 AM EDT [facility] Specimen Type POC Capillary 07/09/2025 4:01 AM EDT [facility] Blood Capillary blood specimen / Unknown 07/09/2025 3:59 AM EDT 07/09/2025 4:01 AM EDT us Kayla Reed MD LAB POINT OF CARE TEST DOCKED DEVICE UNSOLICITED RESULTS Final Result Performing Organization Address City/[facility]/ZIP Co de Phone Number [facility] [address] [place] [address] * (ABNORMAL) Comprehensive metabolic panel (07/09/2025 3:22 AM EDT) [facility] Glucose, Plasma 105(H) 74 - 99 mg/dL 07/09/2025 4:00 AM [facility] BUN, Plasma 22 8 - 23 mg/dL 07/09/2025 4:00 AM [facility] Creatinine, Plasma 1.22(H) 0.60 - 1.10 mg/dL 07/09/2025 4:00 AM [facility] BUN/Creatinine Ratio 18 07/09/2025 4:00 AM [facility] Sodium, Plasma 136 136 - 145 mmol/L 07/09/2025 4:00 AM [facility] Potassium, Plasma 4.1 3.6 - 4.9 mmol/L 07/09/2025 4:00 AM [facility] Chloride, Plasma 108(H) 97 - 107 mmol/L 07/09/2025 4:00 AM [facility] CO2, Plasma 18(L) 22 - 29 mmol/L 07/09/2025 4:00 AM [facility] Anion Gap 10 6 - 16 mmol/L 07/09/2025 4:00 AM [facility] Total Calcium, Plasma 8.5(L) 8.9 - 10.2 mg/dL 07/09/2025 4:00 AM [facility] Total Protein 6.2(L) 6.3 - 7.9 g/dL 07/09/2025 4:00 AM [facility] Albumin, Plasma 3.5 3.5 - 5.2 g/dL 07/09/2025 4:00 AM [facility] AST, Plasma 39(H) 10 - 35 U/L 07/09/2025 4:00 AM [facility] ALT, Plasma 19 10 - 35 U/L 07/09/2025 4:00 AM [facility] Alkaline Phosphatase, Plasma 170(H) 46 - 142 U/L 07/09/2025 4:00 AM [facility] Total Bilirubin, Plasma 2.7(H) 0.2 - 1.1 mg/dL 07/09/2025 4:00 AM [facility] eGFRcr 50.3 mL/min/1.7 3m*2 07/09/2025 4:00 AM [facility] Comment:Reported eGFRcr in m L/min/1.73m2 is based the CKD-EPI 2020 equation that does not use a race coefficient. Blood Venous blood specimen / Unknown Venipuncture / Unknown 07/09/2025 3:22 AM EDT 07/09/2025 3:39 AM EDT Chilo Morales MD LAB BLOOD ORDERABLES Final Result Performing Organization Address City/[facility] Co de Phone Number [facility] [address] [place] [address] * Phosphorus, Plasma (07/09/2025 3:22 AM EDT) Phosphorus, Plasma 3.6 2.5 - 4.5 mg/dL 07/09/2025 4:00 AM EDT [facility] Blood Venous blood specimen / Unknown Venipuncture / Unknown 07/09/2025 3:22 AM EDT 07/09/2025 3:39 AM EDT Chilo Morales MD LAB BLOOD ORDERABLES Final Result Performing Organization Address [facility] de Phone Number [facility] [address] [place] [phone] * Magnesium, Plasma (07/09/2025 3:22 AM EDT) Magnesium, Plasma 1.9 1.9 - 2.4 mg/dL 07/09/2025 4:00 AM EDT [facility] Blood Venous blood specimen / Unknown Venipuncture / Unknown 07/09/2025 3:22 AM EDT 07/09/2025 3:39 AM EDT us Chilo Morales MD LAB BLOOD ORDERABLES Final Result Performing Organization Address City/[facility] Co de Phone Number [facility] [address] [place] [address] * (ABNORMAL) CBC and Differential (07/09/2025 3:22 AM EDT) WBC Count 3.24(L) 3.70 - 10.30 10*3/uL LAB HEMATOLOGY METHOD 07/09/2025 3:42 AM EDT [facility] RBC Count 2.67(L) 3.90 - 5.20 10*6/uL LAB HEMATOLOGY METHOD 07/09/2025 3:42 AM EDT [facility] HGB 8.4(L) 11.2 - 15.7 g/dL LAB HEMATOLOGY METHOD 07/09/2025 3:42 AM EDT [facility] HCT 25.0(L) 34.0 - 45.0 % LAB HEMATOLOGY METHOD 07/09/2025 3:42 AM EDT [facility] Platelet Count 51(L) 155 - 369 10*3/uL LAB HEMATOLOGY METHOD 07/09/2025 3:42 AM EDT [facility] MCV 94 79 - 98 fL LAB HEMATOLOGY METHOD 07/09/2025 3:42 AM EDT [facility] MCH 31.5 26.0 - 32.0 pg LAB HEMATOLOGY METHOD 07/09/2025 3:42 AM EDT [facility] MCHC 33.6 30.7 - 35.5 g/dL LAB HEMATOLOGY METHOD 07/09/2025 3:42 AM EDT [facility] RDW 16.2(H) 11.5 - 14.5 % LAB HEMATOLOGY METHOD 07/09/2025 3:42 AM EDT [facility] MPV 11.8 8.8 - 12.5 fL LAB HEMATOLOGY METHOD 07/09/2025 3:42 AM EDT [facility] nRBC 0.0 <=0.0 per 100 WBCs LAB HEMATOLOGY METHOD 07/09/2025 3:42 AM EDT [facility] Differential Type Automated LAB HEMATOLOGY METHOD 07/09/2025 3:42 AM EDT [facility] Neutrophils % 57 % LAB HEMATOLOGY METHOD 07/09/2025 3:42 AM EDT [facility] Lymphocytes % 23 % LAB HEMATOLOGY METHOD 07/09/2025 3:42 AM EDT [facility] Monocytes % 16 % LAB HEMATOLOGY METHOD 07/09/2025 3:42 AM EDT [facility] Eosinophils % 3 % LAB HEMATOLOGY METHOD 07/09/2025 3:42 AM EDT [facility] Basophils % 1 % LAB HEMATOLOGY METHOD 07/09/2025 3:42 AM EDT [facility] Immature Granulocytes % 0 % LAB HEMATOLOGY METHOD 07/09/2025 3:42 AM EDT [facility] Neutrophils Absolute 1.84 1.60 - 6.10 10*3/uL LAB HEMATOLOGY METHOD 07/09/2025 3:42 AM EDT [facility] Lymphocytes Absolute 0.73(L) 1.20 - 3.90 10*3/uL LAB HEMATOLOGY METHOD 07/09/2025 3:42 AM EDT [facility] Monocytes Absolute 0.52 0.30 - 0.90 10*3/uL LAB HEMATOLOGY METHOD 07/09/2025 3:42 AM EDT [facility] Eosinophils Absolute 0.11 0.00 - 0.50 10*3/uL LAB HEMATOLOGY METHOD 07/09/2025 3:42 AM EDT [facility] Basophils Absolute 0.03 0.00 - 0.10 10*3/uL LAB HEMATOLOGY METHOD 07/09/2025 3:42 AM EDT [facility] Immature Granulocytes Absolute 0.01 0.00 - 0.06 10*3/uL LAB HEMATOLOGY METHOD 07/09/2025 3:42 AM EDT [facility] Blood Venous blood specimen / Unknown Venipuncture / Unknown 07/09/2025 3:22 AM EDT 07/09/2025 3:38 AM EDT Narrative [facility] - 07/09/2025 3:42 AM EDT Therapeutic decision making should be based on absolute values, rather than percentages. Chilo Morales MD LAB BLOOD ORDERABLES Final Result [facility] [address] [place] [address] * (ABNORMAL) POCT glucose meter (07/08/2025 8:37 PM EDT) [facility] POCT Glucose 164(H) 74 - 99 mg/dL [...] for testing. Comment 07/08/2025 8:39 PM EDT [facility] Steamfitter ID Love Gore 8:39 PM EDT [facility] Device ID [id number] 07/08/2025 8:39 PM EDT [facility] Specimen Type POC Capillary 07/08/2025 8:39 PM EDT [facility] Blood Capillary blood specimen / Unknown 07/08/2025 8:37 PM EDT 07/08/2025 8:39 PM EDT Kayla Reed MD LAB POINT OF CARE TEST DOCKED DEVICE UNSOLICITED RESULTS Final Result Performing Organization Address City/[facility]/ZIP Co de Phone Number [facility] [address] [place] [address] * (ABNORMAL) POCT glucose meter (07/08/2025 4:42 PM EDT) [facility] POCT Glucose 276(H) 74 - 99 [...] for testing. Comment 07/08/2025 4:45 PM EDT [facility] Steamfitter ID Candy Smith 07/08/2025 4:45 PM EDT [facility] Device ID [id number] 07/08/2025 4:45 PM EDT [facility] Specimen Type POC Capillary 07/08/2025 4:45 PM EDT [facility] Blood Capillary blood specimen / Unknown 07/08/2025 4:42 PM EDT 07/08/2025 4:45 PM EDT Kayla Reed MD LAB POINT OF CARE TEST DOCKED DEVICE UNSOLICITED RESULTS Final Result Performing Organization Address City/[facility]/ZIP Co de Phone Number [facility] [address] [place] [address] * (ABNORMAL) POCT glucose meter (07/08/2025 11:28 AM EDT) [facility] POCT Glucose 256(H) 74 - 99 mg/dL 07/08/2025 11:30 AM EDT [facility] Comment:Accuracy of a [...] Comment 07/08/2025 11:30 AM EDT [facility] Steamfitter ID Candy Smith 07/08/2025 11:30 AM EDT [facility] Device ID [id number] 07/08/2025 11:30 AM EDT [facility] Specimen Type POC Capillary 07/08/2025 11:30 AM EDT [facility] Blood Capillary blood specimen / Unknown 07/08/2025 11:28 AM EDT 07/08/2025 11:30 AM EDT Kayla Reed MD LAB POINT OF CARE TEST DOCKED DEVICE UNSOLICITED RESULTS Final Result [facility] [address] [place] [address] * (ABNORMAL) POCT glucose meter (07/08/2025 8:02 AM EDT) [facility] POCT Glucose 174(H) 74 - 99 mg/dL 07/08/2025 8:05 AM EDT [facility] Comment:Accuracy of a [...] Comment 07/08/2025 8:05 AM EDT [facility] Steamfitter ID Candy Smith 07/08/2025 8:05 AM EDT [facility]ALTHCARE LAB Device ID [id number] 07/08/2025 8:05 AM EDT [facility]ALTHCARE LAB Specimen Type POC Capillary 07/08/2025 8:05 AM EDT [facility] Blood Capillary blood specimen / Unknown 07/08/2025 8:02 AM EDT 07/08/2025 8:05 AM EDT Result [facility] Kayla Reed MD LAB POINT OF CARE TEST DOCKED DEVICE UNSOLICITED RESULTS Final Result Performing Organization Address City/[facility] Co de Phone Number HEALTHCARE LAB [address] [place] [address] * (ABNORMAL) Ammonia, Plasma (07/08/2025 4:21 AM EDT) Ammonia 146(H) 11 - 51 umol/L 07/08/2025 4:56 AM EDT [facility] Blood Venous blood specimen / Unknown Venipuncture / Unknown 07/08/2025 4:21 AM EDT 07/08/2025 4:27 AM EDT Result [facility] Kayla Reed MD LAB BLOOD ORDERABLES Tari l Result Performing Organization Address City/[facility] de Phone Number HEALTHCARE LAB [address] [place] [address] * (ABNORMAL) Protime-INR (07/08/2025 4:21 AM EDT) Prothrombin Time 22.4(H) 12.0 - 14.3 sec 07/08/2025 4:45 AM EDT [facility]ALTH[facility]ARE LAB INR 1.9(H) 0.9 - 1.1 07/08/2025 4:45 AM EDT [facility]ARE LAB Blood Venous blood specimen / Unknown Venipuncture / Unknown 07/08/2025 4:21 AM EDT 07/08/2025 4:30 AM EDT Narrative [facility] - 07/08/2025 4:45 AM EDT OPTIMAL INR RANGES FOR PATIENT ON ORAL ANTICOAGULANT THERAPY Prevention of venous thromboembolism INR 2.0 to 3.0 In patients with heart disease: Atrial fibrillation INR 2.0 to 3.0 Valvular heart disease INR 2.0 to 3.0 Tissue heart valves INR 2.0 to 3.0 Mechanical prosthetic valves INR 2.5 to 3.5 Prevention of recurrent DE INR 2.5 to 3.5 Fabiana Cunningham MD LAB BLOOD ORDERABLES Final Resu lt [facility] [address] [place] [address] * (ABNORMAL) Comprehensive metabolic panel (07/08/2025 4:21 AM EDT) Glucose, Plasma 172(H) 74 - 99 mg/dL 07/08/2025 5:12 AM EDT [facility] BUN, Plasma 25(H) 8 - 23 mg/dL 07/08/2025 5:12 AM EDT [facility] Creatinine, Plasma 1.16(H) 0.60 - 1.10 mg/dL 07/08/2025 5:12 AM EDT [facility] BUN/Creatinine Ratio 22 07/08/2025 5:12 AM EDT [facility] Sodium, Plasma 135(L) 136 - 145 mmol/L 07/08/2025 5:12 AM EDT [facility] Potassium, Plasma 4.2 3.6 - 4.9 mmol/L 07/08/2025 5:12 AM EDT [facility] Chloride, Plasma 106 97 - 107 mmol/L 07/08/2025 5:12 AM EDT [facility] CO2, Plasma 19(L) 22 - 29 mmol/L 07/08/2025 5:12 AM EDT [facility] Anion Gap 10 6 - 16 mmol/L 07/08/2025 5:12 AM EDT [facility] Total Calcium, Plasma 8.5(L) 8.9 - 10.2 mg/dL 07/08/2025 5:12 AM EDT [facility] Total Protein 6.0(L) 6.3 - 7.9 g/dL 07/08/2025 5:12 AM EDT [facility] Albumin, Plasma 3.4(L) 3.5 - 5.2 g/dL 07/08/2025 5:12 AM EDT [facility] AST, Plasma 38(H) 10 - 35 U/L 07/08/2025 5:12 AM EDT [facility] ALT, Plasma 15 10 - 35 U/L 07/08/2025 5:12 AM EDT [facility] Alkaline Phosphatase, Plasma 167(H) 46 - 142 U/L 07/08/2025 5:12 AM EDT [facility] Total Bilirubin, Plasma 2.4(H) 0.2 - 1.1 mg/dL 07/08/2025 5:12 AM EDT [facility]ALTHCARE LAB eGFRcr 53.4 mL/min/1.7 3m*2 07/08/2025 5:12 AM EDT [facility] Comment:Reported eGFRcr in m L/min/1.73m2 is based the CKD-EPI 2020 equation that does not use a race coefficient. Blood Venous blood specimen / Unknown Venipuncture / Unknown 07/08/2025 4:21 AM EDT 07/08/2025 4:28 AM EDT us Chilo Morales MD LAB BLOOD ORDERABLES Final Result Performing Organization Address [facility] de Phone Number [facility] [address] [place] [address] * Phosphorus, Plasma (07/08/2025 4:21 AM EDT) Phosphorus, Plasma 3.3 2.5 - 4.5 mg/dL 07/08/2025 5:12 AM EDT [facility] Blood Venous blood specimen / Unknown Venipuncture / Unknown 07/08/2025 4:21 AM EDT 07/08/2025 4:28 AM EDT us Chilo Morales MD LAB BLOOD ORDERABLES Final Result Performing Organization Address City/[facility] de Phone Number [facility] [address] [place] [address] * Magnesium, Plasma (07/08/2025 4:21 AM EDT) Magnesium, Plasma 1.9 1.9 - 2.4 mg/dL 07/08/2025 5:12 AM EDT [facility] Blood Venous blood specimen / Unknown Venipuncture / Unknown 07/08/2025 4:21 AM EDT 07/08/2025 4:28 AM EDT us Chilo Morales MD LAB BLOOD ORDERABLES Final Result Performing Organization Address City/[facility] Co de Phone Number [facility] [address] [place] [address] * (ABNORMAL) CBC and Differential (07/08/2025 4:21 AM EDT) WBC Count 2.74(L) 3.70 - 10.30 10*3/uL LAB HEMATOLOGY METHOD 07/08/2025 4:34 AM EDT [facility] RBC Count 2.56(L) 3.90 - 5.20 10*6/uL LAB HEMATOLOGY METHOD 07/08/2025 4:34 AM EDT [facility] HGB 8.0(L) 11.2 - 15.7 g/dL LAB HEMATOLOGY METHOD 07/08/2025 4:34 AM EDT [facility] HCT 23.7(L) 34.0 - 45.0 % LAB HEMATOLOGY METHOD 07/08/2025 4:34 AM EDT [facility]ALTHCARE LAB Platelet Count 43(L) 155 - 369 10*3/uL LAB HEMATOLOGY METHOD 07/08/2025 4:34 AM EDT [facility] MCV 93 79 - 98 fL LAB HEMATOLOGY METHOD 07/08/2025 4:34 AM EDT [facility] MCH 31.3 26.0 - 32.0 pg LAB HEMATOLOGY METHOD 07/08/2025 4:34 AM EDT [facility] MCHC 33.8 30.7 - 35.5 g/dL LAB HEMATOLOGY METHOD 07/08/2025 4:34 AM EDT [facility] RDW 15.9(H) 11.5 - 14.5 % LAB HEMATOLOGY METHOD 07/08/2025 4:34 AM EDT [facility] MPV 10.4 8.8 - 12.5 fL LAB HEMATOLOGY METHOD 07/08/2025 4:34 AM EDT [facility] nRBC 0.0 <=0.0 per 100 WBCs LAB HEMATOLOGY METHOD 07/08/2025 4:34 AM EDT [facility] Differential Type Automated LAB HEMATOLOGY METHOD 07/08/2025 4:34 AM EDT [facility]ALTHCARE LAB Neutrophils % 55 % LAB HEMATOLOGY METHOD 07/08/2025 4:34 AM EDT [facility] LAB Lymphocytes % 23 % LAB HEMATOLOGY METHOD 07/08/2025 4:34 AM EDT [facility] Monocytes % 18 % LAB HEMATOLOGY METHOD 07/08/2025 4:34 AM EDT [facility] Eosinophils % 3 % LAB HEMATOLOGY METHOD 07/08/2025 4:34 AM EDT [facility] Basophils % 1 % LAB HEMATOLOGY METHOD 07/08/2025 4:34 AM EDT [facility] Immature Granulocytes % 0 % LAB HEMATOLOGY METHOD 07/08/2025 4:34 AM EDT [facility] Neutrophils Absolute 1.52(L) 1.60 - 6.10 10*3/uL LAB HEMATOLOGY METHOD 07/08/2025 4:34 AM EDT [facility]ALTHCARE LAB Lymphocytes Absolute 0.62(L) 1.20 - 3.90 10*3/uL LAB HEMATOLOGY METHOD 07/08/2025 4:34 AM EDT [facility] Monocytes Absolute 0.50 0.30 - 0.90 10*3/uL LAB HEMATOLOGY METHOD 07/08/2025 4:34 AM EDT [facility] Eosinophils Absolute 0.08 0.00 - 0.50 10*3/uL LAB HEMATOLOGY METHOD 07/08/2025 4:34 AM EDT [facility] Basophils Absolute 0.02 0.00 - 0.10 10*3/uL LAB HEMATOLOGY METHOD 07/08/2025 4:34 AM EDT [facility]ARE [facility] Immature Granulocytes Absolute 0.00 0.00 - 0.06 10*3/uL LAB HEMATOLOGY METHOD 07/08/2025 4:34 AM EDT [facility] Blood Venous blood specimen / Unknown Venipuncture / Unknown 07/08/2025 4:21 AM EDT 07/08/2025 4:30 AM EDT Narrative [facility]ALTH[facility]ARE LAB - 07/08/2025 4:34 AM EDT Therapeutic decision making should be based on absolute values, rather than percentages. us Chilo Morales MD LAB BLOOD ORDERABLES Final Result [facility] [address] [place] [address] * (ABNORMAL) POCT glucose meter (07/07/2025 8:29 PM EDT) [facility] Signature POCT Glucose 246(H) 74 - 99 mg/dL 07/07/2025 8:30 PM EDT [facility] Comment:Accuracy of [...] for testing. Comment 07/07/2025 8:30 PM EDT [facility] Steamfitter ID Love Gore 8:30 PM EDT [facility] Device ID [id number] 07/07/2025 8:30 PM EDT [facility]ALTH[facility]ARE LAB Specimen Type POC Capillary 07/07/2025 8:30 PM EDT [facility] Blood Capillary blood specimen / Unknown 07/07/2025 8:29 PM EDT 07/07/2025 8:30 PM EDT Kayla Reed MD LAB POINT OF CARE TEST DOCKED DEVICE UNSOLICITED RESULTS Final Result [facility] [address] [place] [address] * (ABNORMAL) POCT glucose meter (07/07/2025 4:43 PM EDT) [facility] POCT Glucose 255(H) 74 - 99 mg/dL 07/07/2025 4:44 PM EDT [facility] Comment:Accuracy of [...] Comment 07/07/2025 4:44 PM EDT HEALTHCARE LAB Steamfitter ID Allen Titus 07/07/2025 4:44 PM EDT HEALTHCARE LAB Device ID [id number] 07/07/2025 4:44 PM EDT [facility]ALTH[facility]ARE LAB Specimen Type POC Capillary 07/07/2025 4:44 PM EDT [facility] Blood Capillary blood specimen / Unknown 07/07/2025 4:43 PM EDT 07/07/2025 4:44 PM EDT Kayla Reed MD LAB POINT OF CARE TEST DOCKED DEVICE UNSOLICITED RESULTS Final Result Performing Organization Address [facility] Co de Phone Number [facility] [address] [place] [address] * (ABNORMAL) POCT glucose meter (07/07/2025 1:36 PM EDT) [facility] POCT Glucose 213(H) 74 - 99 mg/dL [...] Comment 07/07/2025 1:37 PM EDT HEALTHCARE LAB Steamfitter ID Allen Titus 07/07/2025 1:37 PM EDT HEALTHCARE LAB Device ID [id number] 07/07/2025 1:37 PM EDT [facility]ARE [facility] Specimen Type POC Capillary 07/07/2025 1:37 PM EDT [facility] Blood Capillary blood specimen / Unknown 07/07/2025 1:36 PM EDT 07/07/2025 1:37 PM EDT Kayla Reed MD LAB POINT OF CARE TEST DOCKED DEVICE UNSOLICITED RESULTS Final Result Performing Organization Address [facility] de Phone Number [facility] [address] [place] [address] * (ABNORMAL) POCT glucose meter (07/07/2025 11:54 AM EDT) [facility] POCT Glucose 198(H) 74 - 99 mg/dL [...] for testing. Comment 07/07/2025 11:56 AM EDT [facility] Steamfitter ID Allen Titus 07/07/2025 11:56 AM EDT HEALTHCARE LAB Device ID [id number] 07/07/2025 11:56 AM EDT [facility]ARE [facility] Specimen Type POC Capillary 07/07/2025 11:56 AM EDT [facility] Blood Capillary blood specimen / Unknown 07/07/2025 11:54 AM EDT 07/07/2025 11:56 AM EDT Kayla Reed MD LAB POINT OF CARE TEST DOCKED DEVICE UNSOLICITED RESULTS Final Result Performing Organization Address City/[facility] Co de Phone Number [facility]ARE LAB [address] [place] [address] * (ABNORMAL) POCT glucose meter (07/07/2025 8:01 AM EDT) [facility] POCT Glucose 141(H) 74 - 99 [...] for testing. Comment 07/07/2025 8:02 AM EDT [facility]ALTHCARE [facility] Steamfitter ID Allen Titus 07/07/2025 8:02 AM EDT HEALTHCARE LAB Device ID [id number] 07/07/2025 8:02 AM EDT HEALTHCARE LAB Specimen Type POC Capillary 07/07/2025 8:02 AM EDT [facility] Blood Capillary blood specimen / Unknown 07/07/2025 8:01 AM EDT 07/07/2025 8:02 AM EDT Kayla Reed MD LAB POINT OF CARE TEST DOCKED DEVICE UNSOLICITED RESULTS Final Result Performing Organization Address City/[facility]/ZIP Co de Phone Number HEALTHCARE LAB [address] [place] [address] * (ABNORMAL) Protime-INR (07/07/2025 3:30 AM EDT) Pathologist [facility] Prothrombin Time 22.9(H) 12.0 - 14.3 sec 07/07/2025 4:18 AM EDT [facility] INR 2.0(H) 0.9 - 1.1 07/07/2025 4:18 AM EDT [facility] Blood Venous blood specimen / Unknown Venipuncture / Unknown 07/07/2025 3:30 AM EDT 07/07/2025 3:54 AM EDT [facility] - 07/07/2025 4:18 AM EDT OPTIMAL [...] recurrent DE INR 2.5 to 3.5 us Fabiana Cunningham MD LAB BLOOD ORDERABLES Final Resu lt [facility] [address] [place] [address] * (ABNORMAL) Comprehensive metabolic panel (07/07/2025 3:30 AM EDT) Pathologist [facility] Glucose, Plasma 151(H) 74 - 99 mg/dL 07/07/2025 4:21 AM EDT [facility] BUN, Plasma 26(H) 8 - 23 mg/dL 07/07/2025 4:21 AM EDT [facility] Creatinine, Plasma 1.20(H) 0.60 - 1.10 mg/dL 07/07/2025 4:21 AM EDT [facility] BUN/Creatinine Ratio 22 07/07/2025 4:21 AM EDT [facility] Sodium, Plasma 140 136 - 145 mmol/L 07/07/2025 4:21 AM EDT [facility] Potassium, Plasma 4.0 3.6 - 4.9 mmol/L 07/07/2025 4:21 AM EDT [facility] Chloride, Plasma 110(H) 97 - 107 mmol/L 07/07/2025 4:21 AM EDT [facility] CO2, Plasma 19(L) 22 - 29 mmol/L 07/07/2025 4:21 AM EDT [facility] Anion Gap 11 6 - 16 mmol/L 07/07/2025 4:21 AM EDT [facility] Total Calcium, Plasma 8.7(L) 8.9 - 10.2 mg/dL 07/07/2025 4:21 AM EDT [facility] Total Protein 5.9(L) 6.3 - 7.9 g/dL 07/07/2025 4:21 AM EDT [facility] Albumin, Plasma 3.5 3.5 - 5.2 g/dL 07/07/2025 4:21 AM EDT [facility] AST, Plasma 31 10 - 35 U/L 07/07/2025 4:21 AM EDT [facility] ALT, Plasma 13 10 - 35 U/L 07/07/2025 4:21 AM EDT [facility] Alkaline Phosphatase, Plasma 144(H) 46 - 142 U/L 07/07/2025 4:21 AM EDT [facility] Total Bilirubin, Plasma 2.9(H) 0.2 - 1.1 mg/dL 07/07/2025 4:21 AM EDT [facility] eGFRcr 51.3 mL/min/1.7 3m*2 07/07/2025 4:21 AM EDT [facility] Comment:Reported eGFRcr in m L/min/1.73m2 is based the CKD-EPI 2020 equation that does not use a race coefficient. Blood Venous blood specimen / Unknown Venipuncture / Unknown 07/07/2025 3:30 AM EDT 07/07/2025 3:53 AM EDT us Chilo Morales MD LAB BLOOD ORDERABLES Final Result [facility] [address] [place] [address] * Phosphorus, Plasma (07/07/2025 3:30 AM EDT) Pathologist [facility] Phosphorus, Plasma 3.6 2.5 - 4.5 mg/dL 07/07/2025 4:21 AM EDT [facility] Blood Venous blood specimen / Unknown Venipuncture / Unknown 07/07/2025 3:30 AM EDT 07/07/2025 3:53 AM EDT us Chilo Morales MD LAB BLOOD ORDERABLES Final Result Performing Organization Address City/[facility]/ZIP Co de Phone Number HEALTHCARE LAB [address] [place] [address] * Magnesium, Plasma (07/07/2025 3:30 AM EDT) Pathologist [facility] Magnesium, Plasma 1.9 1.9 - 2.4 mg/dL 07/07/2025 4:21 AM EDT [facility] Blood Venous blood specimen / Unknown Venipuncture / Unknown 07/07/2025 3:30 AM EDT 07/07/2025 3:53 AM EDT Chilo Morales MD LAB BLOOD ORDERABLES Final Result Performing Organization Address [facility] de Phone Number [facility] [address] [place] [address] * (ABNORMAL) CBC and Differential (07/07/2025 3:30 AM EDT) Pathologist [facility] WBC Count 2.65(L) 3.70 - 10.30 10*3/uL LAB HEMATOLOGY METHOD 07/07/2025 4:00 AM EDT [facility] RBC Count 2.56(L) 3.90 - 5.20 10*6/uL LAB HEMATOLOGY METHOD 07/07/2025 4:00 AM EDT [facility] HGB 8.0(L) 11.2 - 15.7 g/dL LAB HEMATOLOGY METHOD 07/07/2025 4:00 AM EDT [facility] HCT 23.8(L) 34.0 - 45.0 % LAB HEMATOLOGY METHOD 07/07/2025 4:00 AM EDT [facility] Platelet Count 46(L) 155 - 369 10*3/uL LAB HEMATOLOGY METHOD 07/07/2025 4:00 AM EDT [facility] MCV 93 79 - 98 fL LAB HEMATOLOGY METHOD 07/07/2025 4:00 AM EDT [facility] MCH 31.3 26.0 - 32.0 pg LAB HEMATOLOGY METHOD 07/07/2025 4:00 AM EDT [facility] MCHC 33.6 30.7 - 35.5 g/dL LAB HEMATOLOGY METHOD 07/07/2025 4:00 AM EDT [facility] RDW 15.9(H) 11.5 - 14.5 % LAB HEMATOLOGY METHOD 07/07/2025 4:00 AM EDT [facility] MPV 10.9 8.8 - 12.5 fL LAB HEMATOLOGY METHOD 07/07/2025 4:00 AM EDT [facility] nRBC 0.0 <=0.0 per 100 WBCs LAB HEMATOLOGY METHOD 07/07/2025 4:00 AM EDT [facility] Differential Type Automated LAB HEMATOLOGY METHOD 07/07/2025 4:00 AM EDT [facility] Neutrophils % 57 % LAB HEMATOLOGY METHOD 07/07/2025 4:00 AM EDT [facility] Lymphocytes % 24 % LAB HEMATOLOGY METHOD 07/07/2025 4:00 AM EDT [facility] Monocytes % 16 % LAB HEMATOLOGY METHOD 07/07/2025 4:00 AM EDT [facility] Eosinophils % 3 % LAB HEMATOLOGY METHOD 07/07/2025 4:00 AM EDT [facility] Basophils % 0 % LAB [facility]EMATOLOGY METHOD [facility] Granulocytes % 0 % [facility] HEMATOLOGY METHOD [facility]2025 [facility] Neutrophils Absolute 1.48(L) 1.60 - 6.10 10*3/uL LAB HEMATOLOGY METHOD 07/07/2025 4:00 AM [facility] Lymphocytes Absolute 0.63(L) 1.20 - 3.90 10*3/uL LAB HEMATOLOGY METHOD 07/07/2025 4:00 AM EDT [facility] Monocytes Absolute 0.43 0.30 - 0.90 10*3/uL LAB HEMATOLOGY METHOD 07/07/2025 4:00 AM EDT [facility] Eosinophils Absolute 0.09 0.00 - 0.50 10*3/uL LAB HEMATOLOGY METHOD 07/07/2025 4:00 AM EDT [facility] Basophils Absolute 0.01 0.00 - 0.10 10*3/uL LAB HEMATOLOGY METHOD 07/07/2025 4:00 AM [facility] Immature Granulocytes Absolute 0.01 0.00 - 0.06 10*3/uL LAB HEMATOLOGY METHOD 07/07/2025 4:00 AM [facility] Blood Venous blood specimen / Unknown Venipuncture / Unknown 07/07/2025 3:30 AM EDT 07/07/2025 3:54 AM EDT Narrative [facility]ALTH[facility]ARE [facility] - 07/07/2025 4:00 AM EDT Therapeutic decision making should be based on absolute values, rather than percentages. us Chilo Morales MD LAB BLOOD ORDERABLES Final Result [facility] [address] [place] [address] * (ABNORMAL) POCT glucose meter (07/06/2025 8:03 PM EDT) POCT Glucose 185(H) 74 - 99 mg/dL 07/06/2025 8:05 PM EDT [facility] Comment:Accuracy of [...] Comment 07/06/2025 8:05 PM EDT [facility] Steamfitter ID Camelia Rodriguez 07/06/2025 8:05 PM EDT [facility]ALTH[facility]ARE LAB Device ID [id number] 07/06/2025 8:05 PM EDT [facility] Specimen Type POC Capillary 07/06/2025 8:05 PM EDT [facility] Blood Capillary blood specimen / Unknown 07/06/2025 8:03 PM EDT 07/06/2025 8:05 PM EDT us Kayla Reed MD LAB POINT OF CARE TEST DOCKED DEVICE UNSOLICITED RESULTS Final Result [facility] [address] [place] [address] * (ABNORMAL) POCT glucose meter (07/06/2025 4:54 PM EDT) POCT Glucose 176(H) 74 - 99 mg/dL [...] Comment 07/06/2025 4:56 PM EDT [facility] Steamfitter ID Fabiana Wilikns 07/06/20 4:56 PM EDT [facility]ALTH[facility]ARE LAB Device ID [id number] 07/06/2025 4:56 PM EDT [facility] Specimen Type POC Capillary 07/06/2025 4:56 PM EDT [facility] Blood Capillary blood specimen / Unknown 07/06/2025 4:54 PM EDT 07/06/2025 4:56 PM EDT Kayla Reed MD LAB POINT OF CARE TEST DOCKED DEVICE UNSOLICITED RESULTS Final Result Performing Organization Address City/State/[facility] Co de Phone Number [facility]ARE [facility] [address] [place] [address] * (ABNORMAL) POCT glucose meter (07/06/2025 11:37 AM EDT) [facility] Signature POCT Glucose 165(H) 74 - 99 mg/dL 07/06/2025 11:39 AM EDT [facility] Comment:Accuracy of a [...] Comment 07/06/2025 11:39 AM EDT [facility] Steamfitter ID Fabiana Wilkins 07/06/20 11:39 AM EDT [facility] LAB Device ID [id number] 07/06/2025 11:39 AM EDT [facility] Specimen Type POC Capillary 07/06/2025 11:39 AM EDT [facility] Blood Capillary blood specimen / Unknown 07/06/2025 11:37 AM EDT 07/06/2025 11:39 AM EDT us Kayla M Kudrimoti MD LAB POINT OF CARE TEST DOCKED DEVICE UNSOLICITED RESULTS Final Result Performing Organization Address City/[facility] Co de Phone Number [facility] [address] [place] [address] * (ABNORMAL) POCT glucose meter (07/06/2025 8:19 AM EDT) POCT Glucose 128(H) 74 - 99 mg/dL 07/06/2025 8:23 AM EDT [facility] Comment:Accuracy of [...] Comment 07/06/2025 8:23 AM EDT [facility]ALTH[facility] Steamfitter ID Fabiana Wilkins 07/06/20 8:23 AM EDT [facility] Device ID [id number] 07/06/2025 8:23 AM EDT [facility] Specimen Type POC Capillary 07/06/2025 8:23 AM EDT [facility] Blood Capillary blood specimen / Unknown 07/06/2025 8:19 AM EDT 07/06/2025 8:23 AM EDT Kayla Reed MD LAB POINT OF CARE TEST DOCKED DEVICE UNSOLICITED RESULTS Final Result Performing Organization Address City/[facility] Co de Phone Number [facility] [address] [place] [address] * (ABNORMAL) Protime-INR (07/06/2025 2:31 AM EDT) Prothrombin Time 24.2(H) 12.0 - 14.3 sec 07/06/2025 2:59 AM EDT [facility]ALTH[facility] INR 2.1(H) 0.9 - 1.1 07/06/2025 2:59 AM EDT [facility] Blood Venous blood [...] recurrent DE INR 2.5 to 3.5 us Fabiana Cunningham MD LAB BLOOD ORDERABLES Final Resu lt [facility] [address] [place] [address] * (ABNORMAL) Comprehensive metabolic panel (07/06/2025 2:31 AM EDT) Glucose, Plasma 128(H) 74 - 99 mg/dL 07/06/2025 2:58 AM EDT [facility] BUN, Plasma 25(H) 8 - 23 mg/dL 07/06/2025 2:58 AM EDT [facility] Creatinine, Plasma 1.18(H) 0.60 - 1.10 mg/dL 07/06/2025 2:58 AM EDT [facility] BUN/Creatinine Ratio 21 07/06/2025 2:58 AM EDT [facility] Sodium, Plasma 141 136 - 145 mmol/L 07/06/2025 2:58 AM EDT [facility] Potassium, Plasma 4.4 3.6 - 4.9 mmol/L 07/06/2025 2:58 AM EDT [facility] Chloride, Plasma 111(H) 97 - 107 mmol/L 07/06/2025 2:58 AM EDT [facility] CO2, Plasma 17(L) 22 - 29 mmol/L 07/06/2025 2:58 AM EDT [facility] Anion Gap 13 6 - 16 mmol/L 07/06/2025 2:58 AM EDT [facility] Total Calcium, Plasma 8.6(L) 8.9 - 10.2 mg/dL 07/06/2025 2:58 AM EDT [facility] Total Protein 5.9(L) 6.3 - 7.9 g/dL 07/06/2025 2:58 AM EDT [facility] Albumin, Plasma 3.6 3.5 - 5.2 g/dL 07/06/2025 2:58 AM EDT [facility] AST, Plasma 36(H) 10 - 35 U/L 07/06/2025 2:58 AM EDT [facility] Comment:Hemolyzed, result ma y be falsely increased. ALT, Plasma 13 10 - 35 U/L 07/06/2025 2:58 AM EDT [facility] Alkaline Phosphatase, Plasma 129 46 - 142 U/L 07/06/2025 2:58 AM EDT [facility] Total Bilirubin, Plasma 3.2(H) 0.2 - 1.1 mg/dL 07/06/2025 2:58 AM EDT [facility] eGFRcr 52.3 mL/min/1.7 3m*2 07/06/2025 2:58 AM EDT [facility] Comment:Reported eGFRcr in m L/min/1.73m2 is based the CKD-EPI 2020 equation that does not use a race coefficient. Blood Venous blood specimen / Unknown Venipuncture / Unknown 07/06/2025 2:31 AM EDT 07/06/2025 2:36 AM EDT us Chilo Morales MD LAB BLOOD ORDERABLES Final Result Performing Organization Address City/[facility] [place] Co de Phone Number [facility] [address] [place] [address] * Phosphorus, Plasma (07/06/2025 2:31 AM EDT) Phosphorus, Plasma 3.1 2.5 - 4.5 mg/dL 07/06/2025 2:58 AM EDT [facility] Blood Venous blood specimen / Unknown Venipuncture / Unknown 07/06/2025 2:31 AM EDT 07/06/2025 2:36 AM EDT us Chilo Morales MD LAB BLOOD ORDERABLES Final Result [facility] [address] [place] [address] * (ABNORMAL) Magnesium, Plasma (07/06/2025 2:31 AM EDT) Pathologist [facility] Magnesium, Plasma 1.7(L) 1.9 - 2.4 mg/dL 07/06/2025 2:58 AM EDT [facility] Blood Venous blood specimen / Unknown Venipuncture / Unknown 07/06/2025 2:31 AM EDT 07/06/2025 2:36 AM EDT Chilo Morales MD LAB BLOOD ORDERABLES Final Result [facility] [address] [place] [id number] * (ABNORMAL) CBC and Differential (07/06/2025 2:31 AM EDT) [facility] WBC Count 2.99(L) 3.70 - 10.30 10*3/uL LAB HEMATOLOGY METHOD 07/06/2025 2:53 AM EDT [facility] RBC Count 2.51(L) 3.90 - 5.20 10*6/uL LAB HEMATOLOGY METHOD 07/06/2025 2:53 AM EDT [facility] HGB 7.8(L) 11.2 - 15.7 g/dL LAB HEMATOLOGY METHOD 07/06/2025 2:53 AM EDT [facility] HCT 23.6(L) 34.0 - 45.0 % LAB HEMATOLOGY METHOD 07/06/2025 2:53 AM EDT [facility] Platelet Count 49(L) 155 - 369 10*3/uL LAB HEMATOLOGY METHOD 07/06/2025 2:53 AM EDT [facility] MCV 94 79 - 98 fL LAB HEMATOLOGY METHOD 07/06/2025 2:53 AM EDT [facility] Comment:Results inconsistent with previous lab findings. MCH 31.1 26.0 - 32.0 pg LAB HEMATOLOGY METHOD 07/06/2025 2:53 AM EDT [facility] MCHC 33.1 30.7 - 35.5 g/dL LAB HEMATOLOGY METHOD 07/06/2025 2:53 AM EDT [facility] RDW 15.8(H) 11.5 - 14.5 % LAB HEMATOLOGY METHOD 07/06/2025 2:53 AM EDT [facility] MPV 11.7 8.8 - 12.5 fL LAB HEMATOLOGY METHOD 07/06/2025 2:53 AM EDT [facility] nRBC 0.0 <=0.0 per 100 WBCs LAB HEMATOLOGY METHOD 07/06/2025 2:53 AM EDT [facility] Differential Type Automated LAB HEMATOLOGY METHOD 07/06/2025 2:53 AM EDT [facility] Neutrophils % 58 % LAB HEMATOLOGY METHOD 07/06/2025 2:53 AM EDT [facility] Lymphocytes % 22 % LAB HEMATOLOGY METHOD 07/06/2025 2:53 AM EDT [facility] Monocytes % 16 % LAB HEMATOLOGY METHOD 07/06/2025 2:53 AM EDT [facility] Eosinophils % 3 % LAB HEMATOLOGY METHOD 07/06/2025 2:53 AM EDT [facility] Basophils % 1 % LAB HEMATOLOGY METHOD 07/06/2025 2:53 AM EDT [facility] Immature Granulocytes % 0 % LAB HEMATOLOGY METHOD 07/06/2025 2:53 AM EDT [facility] Neutrophils Absolute 1.73 1.60 - 6.10 10*3/uL LAB HEMATOLOGY METHOD 07/06/2025 2:53 AM EDT [facility] Lymphocytes Absolute 0.67(L) 1.20 - 3.90 10*3/uL LAB HEMATOLOGY METHOD 07/06/2025 2:53 AM EDT [facility] Monocytes Absolute 0.47 0.30 - 0.90 10*3/uL LAB HEMATOLOGY METHOD 07/06/2025 2:53 AM EDT [facility] Eosinophils Absolute 0.08 0.00 - 0.50 10*3/uL LAB HEMATOLOGY METHOD 07/06/2025 2:53 AM EDT [facility] Basophils Absolute 0.03 0.00 - 0.10 10*3/uL LAB HEMATOLOGY METHOD 07/06/2025 2:53 AM EDT [facility] Immature Granulocytes Absolute 0.01 0.00 - 0.06 10*3/uL LAB HEMATOLOGY METHOD 07/06/2025 2:53 AM EDT [facility] Blood Venous blood specimen / Unknown Venipuncture / Unknown 07/06/2025 2:31 AM EDT 07/06/2025 2:36 AM EDT [facility] - 07/06/2025 2:53 AM EDT Therapeutic decision making should be based on absolute values, rather than percentages. Chilo Morales MD LAB BLOOD ORDERABLES Final Result [facility] [address] [place] [address] * (ABNORMAL) POCT glucose meter (07/05/2025 8:06 PM EDT) [facility] POCT Glucose 162(H) 74 - 99 mg/dL [...] Comment 07/05/2025 8:08 PM EDT [facility] Steamfitter ID Rodriguez Camelia 07/05/2025 8:08 PM EDT [facility] Device ID [id number] 07/05/2025 8:08 PM EDT [facility] Specimen Type POC Capillary 07/05/2025 8:08 PM EDT [facility] Blood Capillary blood specimen / Unknown 07/05/2025 8:06 PM EDT 07/05/2025 8:08 PM EDT Kayla Reed MD LAB POINT OF CARE TEST DOCKED DEVICE UNSOLICITED RESULTS Final Result Performing Organization Address City/[facility]/ZIP Co de Phone Number [facility] [address] [place] [address] * (ABNORMAL) POCT glucose meter (07/05/2025 4:46 PM EDT) [facility] POCT Glucose 171(H) 74 - 99 mg/dL [...] 07/05/2025 4:48 PM EDT [facility] Steamfitter ID Fredy Field 4:48 PM EDT [facility] Device ID [id number] 07/05/2025 4:48 PM EDT [facility] Specimen Type POC Capillary 07/05/2025 4:48 PM EDT [facility] Blood Capillary blood specimen / Unknown 07/05/2025 4:46 PM EDT 07/05/2025 4:48 PM EDT us Fabiana Cunningham MD LAB POINT OF CARE TE ST DOCKED DEVICE UNSOLICITED RESULTS Final Result Performing Organization Address City/[facility] Co de Phone Number [facility] [address] [place] [address] * (ABNORMAL) POCT glucose meter (07/05/2025 11:53 AM EDT) [facility] POCT Glucose 192(H) 74 - 99 mg/dL [...] for testing. Comment 07/05/2025 11:54 AM EDT [facility] Steamfitter ID Fredy Field 11:54 AM EDT [facility] LAB Device ID [id number] 07/05/2025 11:54 AM EDT [facility] Specimen Type POC Capillary 07/05/2025 11:54 AM EDT [facility] Blood Capillary blood specimen / Unknown 07/05/2025 11:53 AM EDT 07/05/2025 11:54 AM EDT us Fabiana Cunningham MD LAB POINT OF CARE TE ST DOCKED DEVICE UNSOLICITED RESULTS Final Result Performing Organization Address City/[facility] Co de Phone Number [facility] [address] [place] [address] * (ABNORMAL) POCT glucose meter (07/05/2025 7:52 AM EDT) Pathologist [facility] POCT Glucose 132(H) 74 - 99 mg/dL [...] Comment 07/05/2025 7:54 AM EDT [facility] Steamfitter ID Fredy Field 7:54 AM EDT [facility] Device ID [id number] 07/05/2025 7:54 AM EDT [facility] Specimen Type POC Capillary 07/05/2025 7:54 AM EDT [facility] Blood Capillary blood specimen / Unknown 07/05/2025 7:52 AM EDT 07/05/2025 7:54 AM EDT Fabiana Cunningham MD LAB POINT OF CARE TE ST DOCKED DEVICE UNSOLICITED RESULTS Final Result [facility] [address] [place] [address] * (ABNORMAL) Protime-INR (07/05/2025 4:01 AM EDT) [facility] Prothrombin Time 24.0(H) 12.0 - 14.3 sec 07/05/2025 4:38 AM EDT [facility] INR 2.1(H) 0.9 - 1.1 07/05/2025 4:38 AM EDT [facility] Blood Venous blood specimen / Unknown Venipuncture / Unknown 07/05/2025 4:01 AM EDT 07/05/2025 4:24 AM EDT Narrative [facility]ALTH[facility] - 07/05/2025 4:38 AM EDT OPTIMAL [...] recurrent DE INR 2.5 to 3.5 us Fabiana Cunningham MD LAB BLOOD ORDERABLES Final Resu lt [facility] [address] [place] [address] * (ABNORMAL) Comprehensive metabolic panel (07/05/2025 4:01 AM EDT) Glucose, Plasma 147(H) 74 - 99 mg/dL 07/05/2025 4:48 AM EDT [facility] BUN, Plasma 28(H) 8 - 23 mg/dL 07/05/2025 4:48 AM EDT [facility] Creatinine, Plasma 1.25(H) 0.60 - 1.10 mg/dL 07/05/2025 4:48 AM EDT [facility] BUN/Creatinine Ratio 22 07/05/2025 4:48 AM EDT [facility] Sodium, Plasma 142 136 - 145 mmol/L 07/05/2025 4:48 AM EDT [facility] Potassium, Plasma 4.2 3.6 - 4.9 mmol/L 07/05/2025 4:48 AM EDT [facility] Chloride, Plasma 115(H) 97 - 107 mmol/L 07/05/2025 4:48 AM EDT [facility] CO2, Plasma 16(L) 22 - 29 mmol/L 07/05/2025 4:48 AM EDT [facility] Anion Gap 11 6 - 16 mmol/L 07/05/2025 4:48 AM EDT [facility] Total Calcium, Plasma 8.4(L) 8.9 - 10.2 mg/dL 07/05/2025 4:48 AM EDT [facility] Total Protein 6.0(L) 6.3 - 7.9 g/dL 07/05/2025 4:48 AM EDT [facility] Albumin, Plasma 3.7 3.5 - 5.2 g/dL 07/05/2025 4:48 AM EDT [facility] AST, Plasma 31 10 - 35 U/L 07/05/2025 4:48 AM EDT [facility] ALT, Plasma 11 10 - 35 U/L 07/05/2025 4:48 AM EDT [facility] Alkaline Phosphatase, Plasma 128 46 - 142 U/L 07/05/2025 4:48 AM EDT [facility] Total Bilirubin, Plasma 3.1(H) 0.2 - 1.1 mg/dL 07/05/2025 4:48 AM EDT [facility] eGFRcr 48.8 mL/min/1.7 3m*2 07/05/2025 4:48 AM EDT [facility] Comment:Reported eGFRcr in m L/min/1.73m2 is based the CKD-EPI 2020 equation that does not use a race coefficient. Blood Venous blood specimen / Unknown Venipuncture / Unknown 07/05/2025 4:01 AM EDT 07/05/2025 4:24 AM EDT us Chilo Morales MD LAB BLOOD ORDERABLES Final Result Performing Organization Address City/[facility] Co de Phone Number [facility] [address] [place] [address] * Phosphorus, Plasma (07/05/2025 4:01 AM EDT) Phosphorus, Plasma 2.9 2.5 - 4.5 mg/dL 07/05/2025 4:48 AM EDT [facility] Blood Venous blood specimen / Unknown Venipuncture / Unknown 07/05/2025 4:01 AM EDT 07/05/2025 4:24 AM EDT us Chilo Morales MD LAB BLOOD ORDERABLES Final Result Performing Organization Address City/[facility] Co de Phone Number [facility] [address] [place] [address] * (ABNORMAL) Magnesium, Plasma (07/05/2025 4:01 AM EDT) Magnesium, Plasma 1.8(L) 1.9 - 2.4 mg/dL 07/05/2025 4:48 AM EDT [facility] Blood Venous blood specimen / Unknown Venipuncture / Unknown 07/05/2025 4:01 AM EDT 07/05/2025 4:24 AM EDT us Chilo Morales MD LAB BLOOD ORDERABLES Final Result [facility] [address] [place] [address] * (ABNORMAL) CBC and Differential (07/05/2025 4:01 AM EDT) WBC Count 2.91(L) 3.70 - 10.30 10*3/uL LAB HEMATOLOGY METHOD 07/05/2025 4:35 AM EDT [facility] RBC Count 2.55(L) 3.90 - 5.20 10*6/uL LAB HEMATOLOGY METHOD 07/05/2025 4:35 AM EDT [facility] HGB 8.0(L) 11.2 - 15.7 g/dL LAB HEMATOLOGY METHOD 07/05/2025 4:35 AM EDT [facility] HCT 25.3(L) 34.0 - 45.0 % LAB HEMATOLOGY METHOD 07/05/2025 4:35 AM EDT [facility] Platelet Count 46(L) 155 - 369 10*3/uL LAB HEMATOLOGY METHOD 07/05/2025 4:35 AM EDT [facility] MCV 99(H) 79 - 98 fL LAB HEMATOLOGY METHOD 07/05/2025 4:35 AM EDT [facility] Comment:Results inconsistent with previous lab findings. MCH 31.4 26.0 - 32.0 pg LAB HEMATOLOGY METHOD 07/05/2025 4:35 AM EDT [facility] MCHC 31.6 30.7 - 35.5 g/dL LAB HEMATOLOGY METHOD 07/05/2025 4:35 AM EDT [facility] RDW 15.9(H) 11.5 - 14.5 % LAB HEMATOLOGY METHOD 07/05/2025 4:35 AM EDT [facility] MPV 11.4 8.8 - 12.5 fL LAB HEMATOLOGY METHOD 07/05/2025 4:35 AM EDT [facility] nRBC 0.0 <=0.0 per 100 WBCs LAB HEMATOLOGY METHOD 07/05/2025 4:35 AM EDT [facility] Differential Type Automated LAB HEMATOLOGY METHOD 07/05/2025 4:35 AM EDT [facility] Neutrophils % 64 % LAB HEMATOLOGY METHOD 07/05/2025 4:35 AM EDT [facility] Lymphocytes % 18 % LAB HEMATOLOGY METHOD 07/05/2025 4:35 AM EDT [facility] Monocytes % 15 % LAB HEMATOLOGY METHOD 07/05/2025 4:35 AM EDT [facility] Eosinophils % 2 % LAB HEMATOLOGY METHOD 07/05/2025 4:35 AM EDT [facility] Basophils % 1 % LAB HEMATOLOGY METHOD 07/05/2025 4:35 AM EDT [facility] Immature Granulocytes % 0 % LAB HEMATOLOGY METHOD 07/05/2025 4:35 AM EDT [facility] Neutrophils Absolute 1.84 1.60 - 6.10 10*3/uL LAB HEMATOLOGY METHOD 07/05/2025 4:35 AM EDT [facility] Lymphocytes Absolute 0.53(L) 1.20 - 3.90 10*3/uL LAB HEMATOLOGY METHOD 07/05/2025 4:35 AM EDT [facility] Monocytes Absolute 0.44 0.30 - 0.90 10*3/uL LAB HEMATOLOGY METHOD 07/05/2025 4:35 AM EDT [facility] Eosinophils Absolute 0.07 0.00 - 0.50 10*3/uL LAB HEMATOLOGY METHOD 07/05/2025 4:35 AM EDT [facility] Basophils Absolute 0.02 0.00 - 0.10 10*3/uL LAB HEMATOLOGY METHOD 07/05/2025 4:35 AM EDT [facility] Immature Granulocytes Absolute 0.01 0.00 - 0.06 10*3/uL LAB HEMATOLOGY METHOD 07/05/2025 4:35 AM EDT [facility] Blood Venous blood specimen / Unknown Venipuncture / Unknown 07/05/2025 4:01 AM EDT 07/05/2025 4:24 AM EDT Narrative [facility] - 07/05/2025 4:35 AM EDT Therapeutic decision making should be based on absolute values, rather than percentages. us Chilo Morales MD LAB BLOOD ORDERABLES Final Result [facility] [address] [place] [address] * (ABNORMAL) POCT glucose meter (07/04/2025 8:46 PM EDT) POCT Glucose 184(H) 74 - 99 mg/dL 07/04/2025 8:48 PM EDT [facility] Comment:Accuracy of a [...] Comment 07/04/2025 8:48 PM EDT [facility] Steamfitter ID Love Gore 8:48 PM EDT [facility] Device ID [id number] 07/04/2025 8:48 PM EDT [facility] Specimen Type POC Capillary 07/04/2025 8:48 PM EDT [facility] Blood Capillary blood specimen / Unknown 07/04/2025 8:46 PM EDT 07/04/2025 8:48 PM EDT Fabiana Cunningham MD LAB POINT OF CARE TE ST DOCKED DEVICE UNSOLICITED RESULTS Final Result Performing Organization Address City/State/[facility] Co de Phone Number [facility] [address] [place] [address] * (ABNORMAL) POCT glucose meter (07/04/2025 4:55 PM EDT) [facility] POCT Glucose 219(H) 74 - 99 mg/dL 07/04/2025 6:43 PM EDT [facility] Comment:Accuracy of a [...] Comment 07/04/2025 6:43 PM EDT [facility] Steamfitter ID Fredy Field 6:43 PM EDT [facility] Device ID [id number] 07/04/2025 6:43 PM EDT [facility] Specimen Type POC Capillary 07/04/2025 6:43 PM EDT [facility] Blood Capillary blood specimen / Unknown 07/04/2025 4:55 PM EDT 07/04/2025 6:43 PM EDT us Fabiana Cunningham MD LAB POINT OF CARE TE ST DOCKED DEVICE UNSOLICITED RESULTS Final Result Performing Organization Address City/[facility] Co de Phone Number [facility] [address] [place] [address] * POCT glucose meter (07/04/2025 2:04 PM EDT) POCT Glucose 86 74 - 99 mg/dL 07/04/2025 2:05 PM EDT [facility] Comment:Accuracy of [...] Comment 07/04/2025 2:05 PM EDT [facility] Steamfitter ID Fredy Field 2:05 PM EDT [facility] Device ID [id number] 07/04/2025 2:05 PM EDT [facility] Specimen Type POC Capillary 07/04/2025 2:05 PM EDT [facility] Blood Capillary blood specimen / Unknown 07/04/2025 2:04 PM EDT 07/04/2025 2:05 PM EDT us Fabiana Cunningham MD LAB POINT OF CARE TE ST DOCKED DEVICE UNSOLICITED RESULTS Final Result Performing Organization Address City/[facility] Co de Phone Number [facility] [address] [place] [address] * XR Chest 1 View (07/04/2025 11:43 [...] Alvarez Brenner MD on 07/04/2025 11:44 AM us Maria Dolores Ontiveros APRN, DNP IMG XR PROCEDURES Final Result * US [...] presents today for thoracentesis and paracentesis. TECHNIQUE: Excel Analyst: Maria Dolores Ontiveros APRN Secondary Steamfitter: None. Nurse: Mark Technologist: Dayne Phillips Dose: [...] presents today for thoracentesis and paracentesis. TECHNIQUE: Excel Analyst: Maria Dolores Ontiveros APRN Secondary Steamfitter: None. Nurse: Mark Technologist: Dayne Phillips Dose: [...] presents today for thoracentesis and paracentesis. TECHNIQUE: Excel Analyst: Maria Dolores Ontiveros APRN Secondary Steamfitter: None. Nurse: Mark Technologist: Dayne Phillips Dose: [...] presents today for thoracentesis and paracentesis. TECHNIQUE: Excel Analyst: Maria Dolores Ontiveros APRN Secondary Steamfitter: None. Nurse: Mark Technologist: Dayne Phillips Dose: [...] 07/04/2025 3:50 PM us Marianna Gordon APRN [facility] [place] PROCEDURES Final Resu lt * Body fluid, cytospin, pathologist interpretation (07/04/2025 10:48 AM EDT) Specimen Type Body Fluid LAB HEMATOLOGY METHOD 07/05/2025 1:43 PM EDT [facility] Specimen Source, Body Fluid Pleural, Right LAB HEMATOLOGY METHOD 07/05/2025 1:43 PM EDT [facility] Clinical Diagnosis, Body Fluid Pleural effusion LAB HEMATOLOGY METHOD 07/05/2025 1:43 PM EDT [facility] Interpretation , Body Fluid 07/05/2025 1:43 PM EDT [facility] Pathologist Signature, Body Fluid 07/05/2025 1:43 PM EDT [facility] Comment:Reviewed by: Onur Roque MD LAB CP ASR DISCLAIMER No 07/05/2025 1:43 PM EDT [facility] Specimen Source, Other Free Text No evidence of malignancy, Chronic inflammatory cells Lymphocytosis, Moderate blood 07/05/2025 1:43 PM EDT [facility] Body Fluid Structure of right pleural cavity / Unknown Non-blood Collection / Unknown 07/04/2025 10:48 AM EDT 07/04/2025 12:11 PM EDT us Fabiana Cunningham MD LAB BODY FLUIDS AND STOOLS VINCENT CATES Final Result [facility] [address] [place] [address] * Lactate Dehydrogenase, Pleural Fluid - Right (07/04/2025 10:48 AM EDT) LDH, Fluid 69 U/L 07/04/2025 4:42 PM EDT [facility] Pleural Fluid Structure of right pleural cavity / Unknown Non-blood Collection / Unknown 07/04/2025 10:48 AM EDT 07/04/2025 12:11 PM EDT Narrative [facility] - 07/04/2025 4:42 PM EDT [...] the following criteria are present: (1) pleural ofdwr-hw-mlnmw protein ratio of >0.5, (2) pleural ljanx-ev-wiuas LDH ratio of >0.6, or (3) a pleural fluid LDH activity that is >2/3 the upper limit of a normal serum LDH activity. Light's criteria may misclassify ~25% of transudates as exudates in heart failure. These can be identified by calculating a xraco-kk-eiefemk albumin gradient (>1.2 g/dL) and/or a tnsrd-sb-gbrru protein gradient (>3.1 g/dL). us Fabiana Cunningham MD LAB BODY FLUIDS AND STOOLS VINCENT CATES Final Result [facility] [address] [place] [address] * Total Protein, Pleural Fluid - Pleural Right (07/04/2025 10:48 AM EDT) Total Protein, Fluid 2.1 g/dL 07/04/2025 4:42 PM EDT [facility] Pleural Fluid Structure of right pleural cavity / Unknown Non-blood Collection / Unknown 07/04/2025 10:48 AM EDT 07/04/2025 12:11 PM EDT Narrative [facility] - 07/04/2025 4:42 PM EDT This test was developed and its performance characteristics determined by [facility]. The U.S. Food and Drug Administration has not approved or cleared this test. However, FDA clearance or approval is not currently required for clinical use. The results are not intended to be used as the sole means for clinical diagnosis or patient management decisions. Fabiana Cunningham MD LAB BODY FLUIDS AND STOOLS VINCENT CATES Final Result Performing Organization Address [facility] Co de Phone Number [facility] [address] [place] [address] * Body Fluid Culture and Gram Stain - Pleural Right (07/04/2025 10:48 AM EDT) Culture No growth at day 4 2024 7:42 AM EDT [facility] Gram Stain Result Few Polymorphonuclear leukocytes 07/07/2025 7:42 AM EDT [facility] Gram Stain Result No organisms seen 07/07/2025 7:42 AM EDT [facility] Pleural Fluid Specimen from pleura obtained by thoracentesis / Unknown Non-blood Collection / Unknown 07/04/2025 10:48 AM EDT 07/04/2025 12:41 PM EDT Fabiana Cunningham MD LAB MICROBIOLOGY - GENERAL ORDLoyd CATES Final Result Performing Organization Address [facility] Co de Phone Number [facility] [address] [place] [address] * (ABNORMAL) Body Fluid Cell Count w/ Diff - Pleural Right (07/04/2025 10:48 AM EDT) Color, Body fluid [place] LAB HEMATOLOGY METHOD 07/04/2025 5:03 PM EDT [facility] Appearance, Body fluid Cloudy(A) LAB HEMATOLOGY METHOD 07/04/2025 5:03 PM EDT [facility] Volume, Body fluid 90.0 cc LAB HEMATOLOGY METHOD 07/04/2025 5:03 PM EDT [facility] Fluid Container Specimen received in miscellaneous container LAB HEMATOLOGY METHOD 07/04/2025 5:03 PM EDT [facility] Red Blood Cell Count, Body fluid 16,000 uL LAB HEMATOLOGY METHOD 07/04/2025 5:03 PM EDT [facility] Total Nucleated Cell Count, Body fluid 380 uL LAB HEMATOLOGY METHOD 07/04/2025 5:03 PM EDT [facility] Neutrophils %, Body fluid 7 % LAB HEMATOLOGY METHOD 07/04/2025 5:03 PM EDT [facility] Lymphocytes %, Body fluid 63 % LAB HEMATOLOGY METHOD 07/04/2025 5:03 PM EDT [facility] Monocytes/Macr ophages %, Body fluid 29 % LAB HEMATOLOGY METHOD 07/04/2025 5:03 PM EDT [facility] Eosinophils %, Body fluid 0 % LAB HEMATOLOGY METHOD 07/04/2025 5:03 PM EDT [facility] Lining/Mesothe lial Cells %, Body fluid 1 % LAB HEMATOLOGY METHOD 07/04/2025 5:03 PM EDT [facility] Neutrophils Absolute (PMN), Body fluid 27 uL LAB HEMATOLOGY METHOD 07/04/2025 5:03 PM EDT [facility] Lymphocytes Absolute, Body fluid 239 uL LAB HEMATOLOGY METHOD 07/04/2025 5:03 PM EDT [facility] Monocytes/Macr ophages Absolute, Body fluid 110 uL LAB HEMATOLOGY METHOD 07/04/2025 5:03 PM EDT [facility] Eosinophils Absolute, Body fluid 0 uL LAB HEMATOLOGY METHOD 07/04/2025 5:03 PM EDT [facility] Basophils Absolute, Body fluid 0 uL LAB HEMATOLOGY METHOD 07/04/2025 5:03 PM EDT [facility] Lining/Mesothe lial Cells Absolute, Body fluid 4 uL LAB HEMATOLOGY METHOD 07/04/2025 5:03 PM EDT [facility] Comment, Body fluid None LAB HEMATOLOGY METHOD 07/04/2025 5:03 PM EDT [facility] Comment:This is an appended report. These results have been appended to a previously preliminary verified report. Basophils %, Body fluid 0 % LAB HEMATOLOGY METHOD 07/04/2025 5:03 PM EDT [facility] Body Fluid Structure of right pleural cavity / Unknown Non-blood Collection / Unknown 07/04/2025 10:48 AM EDT 07/04/2025 12:11 PM EDT us Fabiana Cunningham MD LAB BODY FLUIDS AND STOOLS ORDERABLES NO SPECIMEN TYPE/SOURCE Final Result [facility] [address] [place] [address] * Body fluid, cytospin, pathologist interpretation (07/04/2025 10:08 AM EDT) Specimen Type Body Fluid LAB HEMATOLOGY METHOD 07/05/2025 3:43 PM EDT [facility] Specimen Source, Body Fluid Peritoneal Fluid LAB HEMATOLOGY METHOD 07/05/2025 3:43 PM EDT [facility] Clinical Diagnosis, Body Fluid Ascites LAB HEMATOLOGY METHOD 07/05/2025 3:43 PM EDT [facility] Interpretation , Body Fluid No evidence of malignancy Predominantly chronic inflammatory cells Moderate blood 07/05/2025 3:43 PM EDT [facility] Pathologist Signature, Body Fluid 07/05/2025 3:43 PM EDT [facility] Comment:Reviewed by: Kadie dobbs MD LAB CP ASR DISCLAIMER No 07/05/2025 3:43 PM EDT [facility] Body Fluid Peritoneal fluid / Unknown Non-blood Collection / Unknown 07/04/2025 10:08 AM EDT 07/04/2025 12:08 PM EDT us Fabiana Cunningham MD LAB BODY FLUIDS AND STOOLS ORDE RABLES Final Result [facility] [address] [place] [address] * Protein - Ascites (07/04/2025 10:08 AM EDT) Total Protein, Fluid 2.1 g/dL 07/04/2025 3:52 PM EDT [facility] Ascites Peritoneal cavity structure / Unknown 07/04/2025 10:08 AM EDT 07/04/2025 12:10 PM EDT Narrative [facility] - 07/04/2025 3:52 PM EDT This test was developed and its performance characteristics determined by [facility]. The [place] Food and Drug Administration has not approved or cleared this test. However, FDA clearance or approval is not currently required for clinical use. The results are not intended to be used as the sole means for clinical diagnosis or patient management decisions. Fabiana Cunningham MD LAB BODY FLUIDS AND STOOLS VINCENT CATES Final Result Performing Organization Address [facility] [place] Co de Phone Number [facility] [address] [place] [address] * Glucose - Ascites (07/04/2025 10:08 AM EDT) Glucose, Fluid 112 mg/dL 07/04/2025 3:52 PM EDT [facility] Ascites Peritoneal cavity structure / Unknown 07/04/2025 10:08 AM EDT 07/04/2025 12:10 PM EDT [facility] - 07/04/2025 3:52 PM EDT Peritoneal/Ascites [...] VINCENT CATES Final Result Performing Organization Address [facility] Co de Phone Number [facility] [address] [place] [address] * LDH - Ascites (07/04/2025 10:08 AM EDT) LDH, Fluid 63 U/L 07/04/2025 3:52 PM EDT [facility] Ascites Peritoneal cavity structure / Unknown 07/04/2025 10:08 AM EDT 07/04/2025 12:10 PM EDT [facility] - 07/04/2025 3:52 PM EDT No [...] VINCENT CATES Final Result Performing Organization Address [facility]/ZIP Co de Phone Number [facility] [address] [place] [address] * Body Fluid Culture and Gram Stain (07/04/2025 10:08 AM EDT) Culture No growth at day 4 2024 7:42 AM EDT [facility] Gram Stain Result Few Polymorphonuclear leukocytes 07/07/2025 7:42 AM EDT [facility] Gram Stain Result No organisms seen 07/07/2025 7:42 AM EDT [facility] Peritoneal Fluid Peritoneal cavity structure / Unknown Non-blood Collection / Unknown 07/04/2025 10:08 AM EDT 07/04/2025 12:42 PM EDT Fabiana Cunningham MD LAB MICROBIOLOGY - GENERAL ORDLoyd ARGUETABRITTANY Final Result Performing Organization Address [facility] Co de Phone Number [facility] [address] [place] [address] * (ABNORMAL) Body Fluid Cell Count With Diff - Ascites (07/04/2025 10:08 AM EDT) Color, Body fluid [place] [facility] HEMATOLOGY METHOD 07/04/2025 3:41 PM EDT [facility] Appearance, Body fluid Cloudy(A) LAB HEMATOLOGY METHOD 07/04/2025 3:41 PM EDT [facility] Volume, Body fluid 20.0 cc LAB HEMATOLOGY METHOD 07/04/2025 3:41 PM EDT [facility] Fluid Container Specimen received in miscellaneous container LAB HEMATOLOGY METHOD 07/04/2025 3:41 PM EDT [facility] Red Blood Cell Count, Body fluid 11,000 uL LAB HEMATOLOGY METHOD 07/04/2025 3:41 PM EDT [facility] Total Nucleated Cell Count, Body fluid 296 uL LAB HEMATOLOGY METHOD 07/04/2025 3:41 PM EDT [facility] Neutrophils %, Body fluid 11 % LAB HEMATOLOGY METHOD 07/04/2025 3:41 PM EDT [facility] Lymphocytes %, Body fluid 56 % LAB HEMATOLOGY METHOD 07/04/2025 3:41 PM EDT [facility] Monocytes/Macr ophages %, Body fluid 30 % LAB HEMATOLOGY METHOD 07/04/2025 3:41 PM EDT [facility] Eosinophils %, Body fluid 1 % LAB HEMATOLOGY METHOD 07/04/2025 3:41 PM EDT [facility] Lining/Mesothe lial Cells %, Body fluid 2 % LAB HEMATOLOGY METHOD 07/04/2025 3:41 PM EDT [facility] Neutrophils Absolute (PMN), Body fluid 33 uL LAB HEMATOLOGY METHOD 07/04/2025 3:41 PM EDT [facility] Lymphocytes Absolute, Body fluid 166 uL LAB HEMATOLOGY METHOD 07/04/2025 3:41 PM EDT [facility] Monocytes/Macr ophages Absolute, Body fluid 89 uL LAB HEMATOLOGY METHOD 07/04/2025 3:41 PM EDT [facility] Eosinophils Absolute, Body fluid 3 uL LAB HEMATOLOGY METHOD 07/04/2025 3:41 PM EDT [facility] Basophils Absolute, Body fluid 0 uL LAB HEMATOLOGY METHOD 07/04/2025 3:41 PM EDT [facility] Lining/Mesothe lial Cells Absolute, Body fluid 6 uL LAB HEMATOLOGY METHOD 07/04/2025 3:41 PM EDT [facility] Basophils %, Body fluid 0 % LAB HEMATOLOGY METHOD 07/04/2025 3:41 PM EDT [facility] Body Fluid Peritoneal fluid / Unknown Non-blood Collection / Unknown 07/04/2025 10:08 AM EDT 07/04/2025 12:08 PM EDT Fabiana Cunningham MD LAB BODY FLUIDS AND STOOLS ORDERABLES NO SPECIMEN TYPE/SOURCE Final Result [facility] [address] [place] [address] * (ABNORMAL) POCT glucose meter (07/04/2025 8:07 AM EDT) [facility] POCT Glucose 103(H) 74 - 99 mg/dL 07/04/2025 8:09 AM EDT [facility] Comment:Accuracy of [...] Comment 07/04/2025 8:09 AM EDT [facility] Steamfitter ID Fredy Field 8:09 AM EDT [facility] Device ID [id number] 07/04/2025 8:09 AM EDT [facility] Specimen Type POC Capillary 07/04/2025 8:09 AM EDT [facility] Blood Capillary blood specimen / Unknown 07/04/2025 8:07 AM EDT 07/04/2025 8:09 AM EDT Fabiana Cunningham MD LAB POINT OF CARE TE ST DOCKED DEVICE UNSOLICITED RESULTS Final Result Performing Organization Address City/[facility] Co de Phone Number [facility] [address] [place] [address] * (ABNORMAL) Protime-INR (07/04/2025 4:47 AM EDT) [facility] Prothrombin Time 24.0(H) 12.0 - 14.3 sec 07/04/2025 5:51 AM EDT [facility] INR 2.1(H) 0.9 - 1.1 07/04/2025 5:51 AM EDT [facility] Blood Venous blood specimen / Unknown Venipuncture / Unknown 07/04/2025 4:47 AM EDT 07/04/2025 4:55 AM EDT Narrative [facility] - 07/04/2025 5:51 AM EDT [...] recurrent DE INR 2.5 to 3.5 us Fabiana Cunningham MD LAB BLOOD ORDERABLES Final Resu lt [facility] [address] [place] [id number] * (ABNORMAL) Comprehensive metabolic panel (07/04/2025 4:47 AM EDT) Glucose, Plasma 111(H) 74 - 99 mg/dL 07/04/2025 5:23 AM EDT [facility] BUN, Plasma 28(H) 8 - 23 mg/dL 07/04/2025 5:23 AM EDT [facility] Creatinine, Plasma 1.32(H) 0.60 - 1.10 mg/dL 07/04/2025 5:23 AM EDT [facility] BUN/Creatinine Ratio 21 07/04/2025 5:23 AM EDT [facility] Sodium, Plasma 138 136 - 145 mmol/L 07/04/2025 5:23 AM EDT [facility] Potassium, Plasma 4.1 3.6 - 4.9 mmol/L 07/04/2025 5:23 AM EDT [facility] Chloride, Plasma 112(H) 97 - 107 mmol/L 07/04/2025 5:23 AM EDT [facility] CO2, Plasma 16(L) 22 - 29 mmol/L 07/04/2025 5:23 AM EDT [facility] Anion Gap 10 6 - 16 mmol/L 07/04/2025 5:23 AM EDT [facility] Total Calcium, Plasma 8.7(L) 8.9 - 10.2 mg/dL 07/04/2025 5:23 AM EDT [facility] Total Protein 6.2(L) 6.3 - 7.9 g/dL 07/04/2025 5:23 AM EDT [facility] Albumin, Plasma 3.8 3.5 - 5.2 g/dL 07/04/2025 5:23 AM EDT [facility] AST, Plasma 31 10 - 35 U/L 07/04/2025 5:23 AM EDT [facility] ALT, Plasma 14 10 - 35 U/L 07/04/2025 5:23 AM EDT [facility] Alkaline Phosphatase, Plasma 139 46 - 142 U/L 07/04/2025 5:23 AM EDT [facility] Total Bilirubin, Plasma 3.1(H) 0.2 - 1.1 mg/dL 07/04/2025 5:23 AM EDT [facility] eGFRcr 45.7 mL/min/1.7 3m*2 07/04/2025 5:23 AM EDT [facility] Comment:Reported eGFRcr in m L/min/1.73m2 is based the CKD-EPI 2020 equation that does not use a race coefficient. Blood Venous blood specimen / Unknown Venipuncture / Unknown 07/04/2025 4:47 AM EDT 07/04/2025 4:55 AM EDT Chilo Morales MD LAB BLOOD ORDERABLES Final Result Performing Organization Address City/[facility] Co de Phone Number [facility] [address] [place] [address] * Phosphorus, Plasma (07/04/2025 4:47 AM EDT) Phosphorus, Plasma 3.4 2.5 - 4.5 mg/dL 07/04/2025 5:23 AM EDT [facility] Blood Venous blood specimen / Unknown Venipuncture / Unknown 07/04/2025 4:47 AM EDT 07/04/2025 4:55 AM EDT Chilo Morales MD LAB BLOOD ORDERABLES Final Result [facility] [address] [place] [address] * (ABNORMAL) Magnesium, Plasma (07/04/2025 4:47 AM EDT) Magnesium, Plasma 1.8(L) 1.9 - 2.4 mg/dL 07/04/2025 5:23 AM EDT [facility] Blood Venous blood specimen / Unknown Venipuncture / Unknown 07/04/2025 4:47 AM EDT 07/04/2025 4:55 AM EDT us Chilo Morales MD LAB BLOOD ORDERABLES Final Result [facility] [address] [place] [address] * (ABNORMAL) CBC and Differential (07/04/2025 4:47 AM EDT) WBC Count 2.46(L) 3.70 - 10.30 10*3/uL LAB HEMATOLOGY METHOD 07/04/2025 4:58 AM EDT [facility] RBC Count 2.55(L) 3.90 - 5.20 10*6/uL LAB HEMATOLOGY METHOD 07/04/2025 4:58 AM EDT [facility] HGB 7.9(L) 11.2 - 15.7 g/dL LAB HEMATOLOGY METHOD 07/04/2025 4:58 AM EDT [facility] HCT 23.8(L) 34.0 - 45.0 % LAB HEMATOLOGY METHOD 07/04/2025 4:58 AM EDT [facility] Platelet Count 39(L) 155 - 369 10*3/uL LAB HEMATOLOGY METHOD 07/04/2025 4:58 AM EDT [facility] MCV 93 79 - 98 fL LAB HEMATOLOGY METHOD 07/04/2025 4:58 AM EDT [facility] MCH 31.0 26.0 - 32.0 pg LAB HEMATOLOGY METHOD 07/04/2025 4:58 AM EDT [facility] MCHC 33.2 30.7 - 35.5 g/dL LAB HEMATOLOGY METHOD 07/04/2025 4:58 AM EDT [facility] RDW 15.6(H) 11.5 - 14.5 % LAB HEMATOLOGY METHOD 07/04/2025 4:58 AM EDT [facility] MPV 11.5 8.8 - 12.5 fL LAB HEMATOLOGY METHOD 07/04/2025 4:58 AM EDT [facility] nRBC 0.0 <=0.0 per 100 WBCs LAB HEMATOLOGY METHOD 07/04/2025 4:58 AM EDT [facility] Differential Type Automated LAB HEMATOLOGY METHOD 07/04/2025 4:58 AM EDT [facility] Neutrophils % 58 % LAB HEMATOLOGY METHOD 07/04/2025 4:58 AM EDT [facility] Lymphocytes % 22 % LAB HEMATOLOGY METHOD 07/04/2025 4:58 AM EDT [facility] Monocytes % 18 % LAB HEMATOLOGY METHOD 07/04/2025 4:58 AM EDT [facility] Eosinophils % 2 % LAB HEMATOLOGY METHOD 07/04/2025 4:58 AM EDT [facility] Basophils % 0 % LAB HEMATOLOGY METHOD 07/04/2025 4:58 AM EDT [facility] Immature Granulocytes % 0 % LAB HEMATOLOGY METHOD 07/04/2025 4:58 AM EDT [facility] Neutrophils Absolute 1.40(L) 1.60 - 6.10 10*3/uL LAB HEMATOLOGY METHOD 07/04/2025 4:58 AM EDT [facility] Lymphocytes Absolute 0.55(L) 1.20 - 3.90 10*3/uL LAB HEMATOLOGY METHOD 07/04/2025 4:58 AM EDT [facility] Monocytes Absolute 0.43 0.30 - 0.90 10*3/uL LAB HEMATOLOGY METHOD 07/04/2025 4:58 AM EDT [facility] Eosinophils Absolute 0.06 0.00 - 0.50 10*3/uL LAB HEMATOLOGY METHOD 07/04/2025 4:58 AM EDT [facility] Basophils Absolute 0.01 0.00 - 0.10 10*3/uL LAB HEMATOLOGY METHOD 07/04/2025 4:58 AM EDT [facility] Immature Granulocytes Absolute 0.01 0.00 - 0.06 10*3/uL LAB HEMATOLOGY METHOD 07/04/2025 4:58 AM EDT [facility] Blood Venous blood specimen / Unknown Venipuncture / Unknown 07/04/2025 4:47 AM EDT 07/04/2025 4:55 AM EDT Narrative [facility] - 07/04/2025 4:58 AM EDT Therapeutic decision making should be based on absolute values, rather than percentages. us Chilo Morales MD LAB BLOOD ORDERABLES Final Result [facility] [address] [place] [address] * (ABNORMAL) POCT glucose meter (07/03/2025 8:36 PM EDT) POCT Glucose 109(H) 74 - 99 mg/dL [...] for testing. Comment 07/03/2025 8:37 PM EDT [facility] Steamfitter ID Margarette Angel 07/03/2025 8:37 PM EDT [facility] LAB Device ID [id number] 07/03/2025 8:37 PM EDT [facility] Specimen Type POC Capillary 07/03/2025 8:37 PM EDT [facility] Blood Capillary blood specimen / Unknown 07/03/2025 8:36 PM EDT 07/03/2025 8:37 PM EDT us Fabiana Cunningham MD LAB POINT OF CARE TE ST DOCKED DEVICE UNSOLICITED RESULTS Final Result Performing Organization Address City/State/[facility] Co de Phone Number [facility] [address] [place] [address] * XR Abdomen 1 View (07/03/2025 7:02 [...] POCT glucose meter (07/03/2025 4:46 PM EDT) POCT Glucose 122(H) 74 - 99 mg/dL 07/03/2025 4:48 PM EDT [facility] Comment:Accuracy [...] for testing. Comment 07/03/2025 4:48 PM EDT [facility] Steamfitter ID Reyes Elias 07/03/2025 4:48 PM EDT [facility] LAB Device ID [id number] 07/03/2025 4:48 PM EDT [facility] Specimen Type POC Capillary 07/03/2025 4:48 PM EDT [facility] Blood Capillary blood specimen / Unknown 07/03/2025 4:46 PM EDT 07/03/2025 4:48 PM EDT Fabiana Cunningham MD LAB POINT OF CARE TE ST DOCKED DEVICE UNSOLICITED RESULTS Final Result [facility] [address] [place] [address] * (ABNORMAL) POCT glucose meter (07/03/2025 11:50 AM EDT) [facility] POCT Glucose 221(H) 74 - 99 mg/dL [...] for testing. Comment 07/03/2025 11:51 AM EDT [facility] Steamfitter ID Reyes Elias 07/03/2025 11:51 AM EDT [facility] Device ID [id number] 07/03/2025 11:51 AM EDT [facility] Specimen Type POC Capillary 07/03/2025 11:51 AM EDT [facility] Blood Capillary blood specimen / Unknown 07/03/2025 11:50 AM EDT 07/03/2025 11:51 AM EDT Fabiana Cunningham MD LAB POINT OF CARE TE ST DOCKED DEVICE UNSOLICITED RESULTS Final Result [facility] [address] [place] [address] * (ABNORMAL) POCT glucose meter (07/03/2025 8:14 AM EDT) [facility] POCT Glucose 143(H) 74 - 99 mg/dL [...] for testing. Comment 07/03/2025 8:16 AM EDT [facility] Steamfitter ID Reyes Elias 07/03/2025 8:16 AM EDT [facility] Device ID [id number] 07/03/2025 8:16 AM EDT [facility] Specimen Type POC Capillary 07/03/2025 8:16 AM EDT [facility] Blood Capillary blood specimen / Unknown 07/03/2025 8:14 AM EDT 07/03/2025 8:16 AM EDT Fabiana Cunningham MD LAB POINT OF CARE TE ST DOCKED DEVICE UNSOLICITED RESULTS Final Result Performing Organization Address [facility] de Phone Number [facility] [address] [place] [address] * (ABNORMAL) Protime-INR (07/03/2025 4:25 AM EDT) Prothrombin Time 23.0(H) 12.0 - 14.3 sec 07/03/2025 4:42 AM EDT [facility] INR 2.0(H) 0.9 - 1.1 07/03/2025 4:42 AM EDT [facility] Blood Venous blood specimen / Unknown Venipuncture / Unknown 07/03/2025 4:25 AM EDT 07/03/2025 4:29 AM EDT Narrative [facility] - 07/03/2025 4:42 AM EDT [...] of recurrent DE INR 2.5 to 3.5 Fabiana Cunningham MD LAB BLOOD ORDERABLES Final Resu lt Performing Organization Address City/[facility]/ZIP Co de Phone Number [facility] [address] [place] [address] * (ABNORMAL) Comprehensive metabolic panel (07/03/2025 4:25 AM EDT) Glucose, Plasma 148(H) 74 - 99 mg/dL 07/03/2025 4:59 AM EDT [facility] BUN, Plasma 32(H) 8 - 23 mg/dL 07/03/2025 4:59 AM EDT [facility] Creatinine, Plasma 1.53(H) 0.60 - 1.10 mg/dL 07/03/2025 4:59 AM EDT [facility] BUN/Creatinine Ratio 21 07/03/2025 4:59 AM EDT [facility] Sodium, Plasma 141 136 - 145 mmol/L 07/03/2025 4:59 AM EDT [facility] Potassium, Plasma 4.3 3.6 - 4.9 mmol/L 07/03/2025 4:59 AM EDT [facility] Chloride, Plasma 111(H) 97 - 107 mmol/L 07/03/2025 4:59 AM T [facility] CO2, Plasma 19(L) 22 - 29 mmol/L 07/03/2025 4:59 AM EDT [facility] Anion Gap 11 6 - 16 mmol/L 07/03/2025 4:59 AM T [facility] Total Calcium, Plasma 8.7(L) 8.9 - 10.2 mg/dL 07/03/2025 4:59 AM T [facility] Total Protein 6.2(L) 6.3 - 7.9 g/dL 07/03/2025 4:59 AM T [facility] Albumin, Plasma 3.5 3.5 - 5.2 g/dL 07/03/2025 4:59 AM T [facility] AST, Plasma 36(H) 10 - 35 U/L 07/03/2025 4:59 AM T [facility] ALT, Plasma 19 10 - 35 U/L 07/03/2025 4:59 AM T [facility] Alkaline Phosphatase, Plasma 164(H) 46 - 142 U/L 07/03/2025 4:59 AM T [facility] Total Bilirubin, Plasma 2.9(H) 0.2 - 1.1 mg/dL 07/03/2025 4:59 AM T [facility] eGFRcr 38.3 mL/min/1.7 3m*2 07/03/2025 4:59 AM T [facility] Comment:Reported eGFRcr in m L/min/1.73m2 is based the CKD-EPI 2020 equation that does not use a race coefficient. Blood Venous blood specimen / Unknown Venipuncture / Unknown 07/03/2025 4:25 AM EDT 07/03/2025 4:29 AM EDT us Chilo Morales MD LAB BLOOD ORDERABLES Final Result Performing Organization Address City/[facility]/ZIP Co de Phone Number [facility] [address] [place] [address] * Phosphorus, Plasma (07/03/2025 4:25 AM EDT) Pathologist [facility] Phosphorus, Plasma 3.3 2.5 - 4.5 mg/dL 07/03/2025 4:59 AM EDT [facility] Blood Venous blood specimen / Unknown Venipuncture / Unknown 07/03/2025 4:25 AM EDT 07/03/2025 4:29 AM EDT Chilo Morales MD LAB BLOOD ORDERABLES Final Result Performing Organization Address [facility] de Phone Number [facility] [address] [place] [phone] * Magnesium, Plasma (07/03/2025 4:25 AM EDT) [facility] Magnesium, Plasma 2.0 1.9 - 2.4 mg/dL 07/03/2025 4:59 AM EDT [facility] Blood Venous blood specimen / Unknown Venipuncture / Unknown 07/03/2025 4:25 AM EDT 07/03/2025 4:29 AM EDT Chilo Morales MD LAB BLOOD ORDERABLES Final Result Performing Organization Address City/[facility] Co de Phone Number [facility] [address] [place] [address] * (ABNORMAL) CBC and Differential (07/03/2025 4:25 AM EDT) [facility] WBC Count 2.60(L) 3.70 - 10.30 10*3/uL LAB HEMATOLOGY METHOD 07/03/2025 4:32 AM EDT [facility] RBC Count 2.56(L) 3.90 - 5.20 10*6/uL LAB HEMATOLOGY METHOD 07/03/2025 4:32 AM EDT [facility] HGB 7.9(L) 11.2 - 15.7 g/dL LAB HEMATOLOGY METHOD 07/03/2025 4:32 AM EDT [facility] HCT 23.6(L) 34.0 - 45.0 % LAB HEMATOLOGY METHOD 07/03/2025 4:32 AM EDT [facility] Platelet Count 43(L) 155 - 369 10*3/uL LAB HEMATOLOGY METHOD 07/03/2025 4:32 AM EDT [facility] MCV 92 79 - 98 fL LAB HEMATOLOGY METHOD 07/03/2025 4:32 AM EDT [facility] MCH 30.9 26.0 - 32.0 pg LAB HEMATOLOGY METHOD 07/03/2025 4:32 AM EDT [facility] MCHC 33.5 30.7 - 35.5 g/dL LAB HEMATOLOGY METHOD 07/03/2025 4:32 AM EDT [facility] RDW 15.0(H) 11.5 - 14.5 % LAB HEMATOLOGY METHOD 07/03/2025 4:32 AM EDT [facility] MPV 11.8 8.8 - 12.5 fL LAB HEMATOLOGY METHOD 07/03/2025 4:32 AM EDT [facility] nRBC 0.0 <=0.0 per 100 WBCs LAB HEMATOLOGY METHOD 07/03/2025 4:32 AM EDT [facility] Differential Type Automated LAB HEMATOLOGY METHOD 07/03/2025 4:32 AM EDT [facility] Neutrophils % 62 % LAB HEMATOLOGY METHOD 07/03/2025 4:32 AM EDT [facility] Lymphocytes % 22 % LAB HEMATOLOGY METHOD 07/03/2025 4:32 AM EDT [facility] Monocytes % 14 % LAB HEMATOLOGY METHOD 07/03/2025 4:32 AM EDT [facility] Eosinophils % 2 % LAB HEMATOLOGY METHOD 07/03/2025 4:32 AM EDT [facility] Basophils % 0 % LAB HEMATOLOGY METHOD 07/03/2025 4:32 AM EDT [facility] Immature Granulocytes % 0 % LAB HEMATOLOGY METHOD 07/03/2025 4:32 AM EDT [facility] Neutrophils Absolute 1.58(L) 1.60 - 6.10 10*3/uL LAB HEMATOLOGY METHOD 07/03/2025 4:32 AM EDT [facility] Lymphocytes Absolute 0.58(L) 1.20 - 3.90 10*3/uL LAB HEMATOLOGY METHOD 07/03/2025 4:32 AM EDT [facility] Monocytes Absolute 0.36 0.30 - 0.90 10*3/uL LAB HEMATOLOGY METHOD 07/03/2025 4:32 AM EDT [facility] Eosinophils Absolute 0.06 0.00 - 0.50 10*3/uL LAB HEMATOLOGY METHOD 07/03/2025 4:32 AM EDT [facility] Basophils Absolute 0.01 0.00 - 0.10 10*3/uL LAB HEMATOLOGY METHOD 07/03/2025 4:32 AM EDT [facility] Immature Granulocytes Absolute 0.01 0.00 - 0.06 10*3/uL LAB HEMATOLOGY METHOD 07/03/2025 4:32 AM EDT [facility] Blood Venous blood specimen / Unknown Venipuncture / Unknown 07/03/2025 4:25 AM EDT 07/03/2025 4:29 AM EDT Narrative [facility] - 07/03/2025 4:32 AM EDT Therapeutic decision making should be based on absolute values, rather than percentages. Chilo Morales MD LAB BLOOD ORDERABLES Final Result Performing Organization Address City/State/[facility] Co de Phone Number [facility] [address] [place] [address] * (ABNORMAL) POCT glucose meter (07/02/2025 8:19 PM EDT) POCT Glucose 150(H) 74 - 99 mg/dL 07/02/2025 8:21 PM EDT [facility] Comment:Accuracy of a [...] Comment 07/02/2025 8:21 PM EDT [facility] Steamfitter ID [email or web address] head 07/02/2025 8:21 PM EDT [facility] LAB Device ID [id number] 07/02/2025 8:21 PM EDT [facility] Specimen Type POC Capillary 07/02/2025 8:21 PM EDT [facility] Blood Capillary blood specimen / Unknown 07/02/2025 8:19 PM EDT 07/02/2025 8:21 PM EDT us Fabiana Cunningham MD LAB POINT OF CARE TE ST DOCKED DEVICE UNSOLICITED RESULTS Final Result Performing Organization Address City/[facility]/ZIP Co de Phone Number [facility] [address] [place] [address] * (ABNORMAL) POCT glucose meter (07/02/2025 4:53 PM EDT) POCT Glucose 125(H) 74 - 99 mg/dL 07/02/2025 4:55 PM EDT [facility] Comment:Accuracy of a [...] Comment 07/02/2025 4:55 PM EDT [facility] Steamfitter ID Ashleigh Romero 4:55 PM EDT [facility] Device ID [id number] 07/02/2025 4:55 PM EDT [facility] Specimen Type POC Capillary 07/02/2025 4:55 PM EDT [facility] Blood Capillary blood specimen / Unknown 07/02/2025 4:53 PM EDT 07/02/2025 4:55 PM EDT us Fabiana Cunningham MD LAB POINT OF CARE TE ST DOCKED DEVICE UNSOLICITED RESULTS Final Result Performing Organization Address City/[facility]/ZIP Co de Phone Number [facility] [address] [place] [address] * Sodium, urine, random (07/02/2025 12:42 PM EDT) Sodium, Urine <20 mmol/L 07/02/2025 1:41 PM EDT [facility] Urine Urine specimen obtained by clean catch procedure / Unknown Non-blood Collection / Unknown 07/02/2025 12:42 PM EDT 07/02/2025 1:01 PM EDT us Fabiana Cunningham MD LAB URINE ORDERABLES Final Resu lt Performing Organization Address City/[facility] Co de Phone Number [facility] [address] [place] [address] * Osmolality, urine (07/02/2025 12:42 PM EDT) Osmolality, Urine 467 50 - 1,200 mOsm/kg 07/02/2025 4:32 PM EDT [facility] Urine Urine specimen obtained by clean catch procedure / Unknown Non-blood Collection / Unknown 07/02/2025 12:42 PM EDT 07/02/2025 1:01 PM EDT us Fabiana Cunningham MD LAB URINE ORDERABLES Final Resu lt Performing Organization Address [facility] de Phone Number [facility] [address] [place] [address] * Creatinine, urine, random (07/02/2025 12:42 PM EDT) Creatinine, Urine 146 mg/dL 07/02/2025 1:41 PM EDT [facility] Urine Urine specimen obtained by clean catch procedure / Unknown Non-blood Collection / Unknown 07/02/2025 12:42 PM EDT 07/02/2025 1:01 PM EDT us Fabiana Cunningham MD LAB URINE ORDERABLES Final Resu lt Performing Organization Address [facility] de Phone Number [facility] [address] [place] [address] * Urea nitrogen, urine (07/02/2025 12:42 PM EDT) Urea Nitrogen, Urine 821 mg/dL 07/02/2025 4:26 PM EDT [facility] Urine Urine specimen obtained by clean catch procedure / Unknown Non-blood Collection / Unknown 07/02/2025 12:42 PM EDT 07/02/2025 1:01 PM EDT us Fabiana Cunningham MD LAB URINE ORDERABLES Final Resu lt Performing Organization Address [facility] Co de Phone Number [facility] [address] [place] [phone] * (ABNORMAL) POCT glucose meter (07/02/2025 12:04 PM EDT) [facility] POCT Glucose 189(H) 74 - 99 mg/dL [...] Comment 07/02/2025 12:06 PM EDT [facility]ALTH[facility] [employer] ID Jake Gallegos 07/02/2025 12:06 PM EDT [facility] Device ID [id number] 07/02/2025 12:06 PM EDT [facility] Specimen Type POC Capillary 07/02/2025 12:06 PM EDT [facility] Blood Capillary blood specimen / Unknown 07/02/2025 12:04 PM EDT 07/02/2025 12:06 PM EDT us Fabiana Cunningham MD LAB POINT OF CARE TE ST DOCKED DEVICE UNSOLICITED RESULTS Final Result [facility] [address] [place] [address] * (ABNORMAL) POCT glucose meter (07/02/2025 8:20 AM EDT) [facility] POCT Glucose 115(H) 74 - 99 mg/dL [...] for testing. Comment 07/02/2025 8:22 AM EDT [facility] Steamfitter ID Ashleigh Romero 8:22 AM EDT [facility] Device ID [id number] 07/02/2025 8:22 AM EDT [facility] Specimen Type POC Capillary 07/02/2025 8:22 AM EDT [facility] Blood Capillary blood specimen / Unknown 07/02/2025 8:20 AM EDT 07/02/2025 8:22 AM EDT Fabiana Cunningham MD LAB POINT OF CARE TE ST DOCKED DEVICE UNSOLICITED RESULTS Final Result [facility] [address] [place] [address] * (ABNORMAL) Comprehensive metabolic panel (07/02/2025 4:19 AM EDT) Glucose, Plasma 115(H) 74 - 99 mg/dL 07/02/2025 4:58 AM EDT [facility] BUN, Plasma 32(H) 8 - 23 mg/dL 07/02/2025 4:58 AM EDT [facility] Creatinine, Plasma 1.73(H) 0.60 - 1.10 mg/dL 07/02/2025 4:58 AM EDT [facility] BUN/Creatinine Ratio 18 07/02/2025 4:58 AM EDT [facility] Sodium, Plasma 134(L) 136 - 145 mmol/L 07/02/2025 4:58 AM EDT [facility] Potassium, Plasma 4.1 3.6 - 4.9 mmol/L 07/02/2025 4:58 AM EDT [facility] Chloride, Plasma 108(H) 97 - 107 mmol/L 07/02/2025 4:58 AM EDT [facility] CO2, Plasma 18(L) 22 - 29 mmol/L 07/02/2025 4:58 AM EDT [facility] Anion Gap 8 6 - 16 mmol/L 07/02/2025 4:58 AM EDT [facility] Total Calcium, Plasma 8.1(L) 8.9 - 10.2 mg/dL 07/02/2025 4:58 AM EDT [facility] Total Protein 5.8(L) 6.3 - 7.9 g/dL 07/02/2025 4:58 AM EDT [facility] Albumin, Plasma 2.8(L) 3.5 - 5.2 g/dL 07/02/2025 4:58 AM EDT [facility] AST, Plasma 40(H) 10 - 35 U/L 07/02/2025 4:58 AM EDT [facility] ALT, Plasma 21 10 - 35 U/L 07/02/2025 4:58 AM EDT [facility] Alkaline Phosphatase, Plasma 182(H) 46 - 142 U/L 07/02/2025 4:58 AM EDT [facility] Total Bilirubin, Plasma 2.8(H) 0.2 - 1.1 mg/dL 07/02/2025 4:58 AM EDT [facility] eGFRcr 33.1 mL/min/1.7 3m*2 07/02/2025 4:58 AM EDT [facility] Comment:Reported eGFRcr in m L/min/1.73m2 is based the CKD-EPI 2020 equation that does not use a race coefficient. Blood Venous blood specimen / Unknown Venipuncture / Unknown 07/02/2025 4:19 AM EDT 07/02/2025 4:33 AM EDT Chilo Morales MD LAB BLOOD ORDERABLES Final Result Performing Organization Address City/[facility] Co de Phone Number [facility] [address] [place] [address] * Phosphorus, Plasma (07/02/2025 4:19 AM EDT) Phosphorus, Plasma 3.1 2.5 - 4.5 mg/dL 07/02/2025 4:58 AM EDT [facility] Blood Venous blood specimen / Unknown Venipuncture / Unknown 07/02/2025 4:19 AM EDT 07/02/2025 4:33 AM EDT us Chilo Morales MD LAB BLOOD ORDERABLES Final Result [facility] [address] [place] [address] * (ABNORMAL) Magnesium, Plasma (07/02/2025 4:19 AM EDT) Magnesium, Plasma 1.8(L) 1.9 - 2.4 mg/dL 07/02/2025 4:58 AM EDT [facility] Blood Venous blood specimen / Unknown Venipuncture / Unknown 07/02/2025 4:19 AM EDT 07/02/2025 4:33 AM EDT us Chilo Morales MD LAB BLOOD ORDERABLES Final Result [facility] [address] [place] [id number] * (ABNORMAL) CBC and Differential (07/02/2025 4:19 AM EDT) WBC Count 3.07(L) 3.70 - 10.30 10*3/uL LAB HEMATOLOGY METHOD 07/02/2025 4:35 AM EDT [facility] RBC Count 2.67(L) 3.90 - 5.20 10*6/uL LAB HEMATOLOGY METHOD 07/02/2025 4:35 AM EDT [facility] HGB 8.3(L) 11.2 - 15.7 g/dL LAB HEMATOLOGY METHOD 07/02/2025 4:35 AM EDT [facility] HCT 24.5(L) 34.0 - 45.0 % LAB HEMATOLOGY METHOD 07/02/2025 4:35 AM EDT [facility] Platelet Count 51(L) 155 - 369 10*3/uL LAB HEMATOLOGY METHOD 07/02/2025 4:35 AM EDT [facility] MCV 92 79 - 98 fL LAB HEMATOLOGY METHOD 07/02/2025 4:35 AM EDT [facility] MCH 31.1 26.0 - 32.0 pg LAB HEMATOLOGY METHOD 07/02/2025 4:35 AM EDT [facility] MCHC 33.9 30.7 - 35.5 g/dL LAB HEMATOLOGY METHOD 07/02/2025 4:35 AM EDT [facility] RDW 15.3(H) 11.5 - 14.5 % LAB HEMATOLOGY METHOD 07/02/2025 4:35 AM EDT [facility] MPV 12.6(H) 8.8 - 12.5 fL LAB HEMATOLOGY METHOD 07/02/2025 4:35 AM EDT [facility] nRBC 0.0 <=0.0 per 100 WBCs LAB HEMATOLOGY METHOD 07/02/2025 4:35 AM EDT [facility] Differential Type Automated LAB HEMATOLOGY METHOD 07/02/2025 4:35 AM EDT [facility] Neutrophils % 55 % LAB HEMATOLOGY METHOD 07/02/2025 4:35 AM EDT [facility]ALTH[facility] Lymphocytes % 25 % LAB HEMATOLOGY METHOD 07/02/2025 4:35 AM EDT [facility] Monocytes % 17 % LAB HEMATOLOGY METHOD 07/02/2025 4:35 AM EDT [facility] Eosinophils % 3 % LAB HEMATOLOGY METHOD 07/02/2025 4:35 AM EDT [facility] Basophils % 0 % LAB HEMATOLOGY METHOD 07/02/2025 4:35 AM EDT [facility] Immature Granulocytes % 0 % LAB HEMATOLOGY METHOD 07/02/2025 4:35 AM EDT [facility] Neutrophils Absolute 1.66 1.60 - 6.10 10*3/uL LAB HEMATOLOGY METHOD 07/02/2025 4:35 AM EDT [facility] Lymphocytes Absolute 0.78(L) 1.20 - 3.90 10*3/uL LAB HEMATOLOGY METHOD 07/02/2025 4:35 AM EDT [facility] Monocytes Absolute 0.53 0.30 - 0.90 10*3/uL LAB HEMATOLOGY METHOD 07/02/2025 4:35 AM EDT [facility] Eosinophils Absolute 0.08 0.00 - 0.50 10*3/uL LAB HEMATOLOGY METHOD 07/02/2025 4:35 AM EDT [facility] Basophils Absolute 0.01 0.00 - 0.10 10*3/uL LAB HEMATOLOGY METHOD 07/02/2025 4:35 AM EDT [facility] Immature Granulocytes Absolute 0.01 0.00 - 0.06 10*3/uL LAB HEMATOLOGY METHOD 07/02/2025 4:35 AM EDT [facility] Blood Venous blood specimen / Unknown Venipuncture / Unknown 07/02/2025 4:19 AM EDT 07/02/2025 4:32 AM EDT [facility] - 07/02/2025 4:35 AM EDT Therapeutic decision making should be based on absolute values, rather than percentages. us Chilo Morales MD LAB BLOOD ORDERABLES Final Result [facility] [address] [place] [id number] * (ABNORMAL) POCT glucose meter (07/01/2025 8:01 PM EDT) [facility] POCT Glucose 122(H) 74 - 99 mg/dL [...] for testing. Comment 07/01/2025 8:02 PM EDT [facility] Steamfitter ID Sandra Collins 07/01/2025 8:02 PM EDT [facility] LAB Device ID [id number] 07/01/2025 8:02 PM EDT [facility] Specimen Type POC Capillary 07/01/2025 8:02 PM EDT [facility] Blood Capillary blood specimen / Unknown 07/01/2025 8:01 PM EDT 07/01/2025 8:02 PM EDT Fabiana Cunningham MD LAB POINT OF CARE TE ST DOCKED DEVICE UNSOLICITED RESULTS Final Result [facility] [address] [place] [address] * (ABNORMAL) POCT glucose meter (07/01/2025 4:37 PM EDT) [facility] POCT Glucose 136(H) 74 - 99 mg/dL 07/01/2025 4:38 PM EDT [facility] Comment:Accuracy of [...] for testing. Comment 07/01/2025 4:38 PM EDT [facility] Steamfitter ID Ashleigh Romero 4:38 PM EDT [facility] Device ID [id number] 07/01/2025 4:38 PM EDT [facility] Specimen Type POC Capillary 07/01/2025 4:38 PM EDT [facility] Blood Capillary blood specimen / Unknown 07/01/2025 4:37 PM EDT 07/01/2025 4:38 PM EDT Fabiana Cunningham MD LAB POINT OF CARE TE ST DOCKED DEVICE UNSOLICITED RESULTS Final Result Performing Organization Address City/[facility] Co de Phone Number [facility] [address] [place] [address] * (ABNORMAL) POCT glucose meter (07/01/2025 12:10 PM EDT) POCT Glucose 257(H) 74 - 99 mg/dL [...] for testing. Comment 07/01/2025 12:12 PM EDT [facility] Steamfitter ID Ashleigh Romero 12:12 PM EDT [facility] Device ID [id number] 07/01/2025 12:12 PM EDT [facility] Specimen Type POC Capillary 07/01/2025 12:12 PM EDT [facility] Blood Capillary blood specimen / Unknown 07/01/2025 12:10 PM EDT 07/01/2025 12:12 PM EDT us Fabiana Cunningham MD LAB POINT OF CARE TE ST DOCKED DEVICE UNSOLICITED RESULTS Final Result [facility] [address] [place] [address] * (ABNORMAL) Protime-INR (07/01/2025 9:08 AM EDT) Prothrombin Time 19.9(H) 12.0 - 14.3 sec 07/01/2025 9:45 AM EDT [facility] INR 1.7(H) 0.9 - 1.1 07/01/2025 9:45 AM EDT [facility] Blood Venous blood specimen / Unknown Venipuncture / Unknown 07/01/2025 9:08 AM EDT 07/01/2025 9:21 AM EDT Narrative HEALTHCARE LAB - 07/01/2025 9:45 AM EDT OPTIMAL [...] recurrent DE INR 2.5 to 3.5 us Yeni Lebron APRN, DNP LAB BLOOD ORDERABLES Final Result [facility] [address] [place] [address] * (ABNORMAL) POCT glucose meter (07/01/2025 8:04 AM EDT) Pathologist [facility] POCT Glucose 126(H) 74 - 99 mg/dL 07/01/2025 8:06 AM EDT [facility] Comment:Accuracy of a [...] Comment 07/01/2025 8:06 AM EDT [facility] Steamfitter ID Ashleigh Romero 8:06 AM EDT [facility] Device ID [id number] 07/01/2025 8:06 AM EDT [facility] Specimen Type POC Capillary 07/01/2025 8:06 AM EDT [facility] Blood Capillary blood specimen / Unknown 07/01/2025 8:04 AM EDT 07/01/2025 8:06 AM EDT us Fabiana Cunningham MD LAB POINT OF CARE TE ST DOCKED DEVICE UNSOLICITED RESULTS Final Result [facility] [address] [place] [address] * (ABNORMAL) Comprehensive metabolic panel (07/01/2025 12:00 AM EDT) Glucose, Plasma 154(H) 74 - 99 mg/dL 07/01/2025 12:25 AM EDT [facility] BUN, Plasma 27(H) 8 - 23 mg/dL 07/01/2025 12:25 AM EDT [facility] Creatinine, Plasma 1.42(H) 0.60 - 1.10 mg/dL 07/01/2025 12:25 AM EDT [facility] BUN/Creatinine Ratio 19 07/01/2025 12:25 AM EDT [facility] Sodium, Plasma 135(L) 136 - 145 mmol/L 07/01/2025 12:25 AM EDT [facility] Potassium, Plasma 4.3 3.6 - 4.9 mmol/L 07/01/2025 12:25 AM EDT [facility] Chloride, Plasma 108(H) 97 - 107 mmol/L 07/01/2025 12:25 AM EDT [facility] CO2, Plasma 18(L) 22 - 29 mmol/L 07/01/2025 12:25 AM EDT [facility] Anion Gap 9 6 - 16 mmol/L 07/01/2025 12:25 AM EDT [facility] Total Calcium, Plasma 8.7(L) 8.9 - 10.2 mg/dL 07/01/2025 12:25 AM EDT [facility] Total Protein 6.0(L) 6.3 - 7.9 g/dL 07/01/2025 12:25 AM EDT [facility] Albumin, Plasma 2.9(L) 3.5 - 5.2 g/dL 07/01/2025 12:25 AM EDT [facility] AST, Plasma 46(H) 10 - 35 U/L 07/01/2025 12:25 AM EDT [facility] ALT, Plasma 21 10 - 35 U/L 07/01/2025 12:25 AM EDT [facility] Alkaline Phosphatase, Plasma 184(H) 46 - 142 U/L 07/01/2025 12:25 AM EDT [facility] Total Bilirubin, Plasma 2.9(H) 0.2 - 1.1 mg/dL 07/01/2025 12:25 AM EDT [facility] eGFRcr 41.9 mL/min/1.7 3m*2 07/01/2025 12:25 AM EDT [facility] Comment:Reported eGFRcr in m L/min/1.73m2 is based the CKD-EPI 2020 equation that does not use a race coefficient. Blood Venous blood specimen / Unknown Venipuncture / Unknown 07/01/2025 12:00 AM EDT 07/01/2025 12:03 AM EDT us Chilo Morales MD LAB BLOOD ORDERABLES Final Result Performing Organization Address City/[facility] de Phone Number [facility] [address] [place] [address] * Phosphorus, Plasma (07/01/2025 12:00 AM EDT) Phosphorus, Plasma 2.7 2.5 - 4.5 mg/dL 07/01/2025 12:25 AM EDT [facility] Blood Venous blood specimen / Unknown Venipuncture / Unknown 07/01/2025 12:00 AM EDT 07/01/2025 12:03 AM EDT us Chilo Morales MD LAB BLOOD ORDERABLES Final Result Performing Organization Address City/[facility] Co de Phone Number [facility] [address] [place] [address] * Magnesium, Plasma (07/01/2025 12:00 AM EDT) Magnesium, Plasma 1.9 1.9 - 2.4 mg/dL 07/01/2025 12:25 AM EDT [facility] Blood Venous blood specimen / Unknown Venipuncture / Unknown 07/01/2025 12:00 AM EDT 07/01/2025 12:03 AM EDT us Chilo Morales MD LAB BLOOD ORDERABLES Final Result Performing Organization Address City/[facility]/ZIP Co de Phone Number [facility] [address] [place] [address] * (ABNORMAL) CBC and Differential (07/01/2025 12:00 AM EDT) WBC Count 3.15(L) 3.70 - 10.30 10*3/uL LAB HEMATOLOGY METHOD 07/01/2025 12:06 AM EDT [facility] RBC Count 2.81(L) 3.90 - 5.20 10*6/uL LAB HEMATOLOGY METHOD 07/01/2025 12:06 AM EDT [facility] HGB 8.6(L) 11.2 - 15.7 g/dL LAB HEMATOLOGY METHOD 07/01/2025 12:06 AM EDT [facility] HCT 25.5(L) 34.0 - 45.0 % LAB HEMATOLOGY METHOD 07/01/2025 12:06 AM EDT [facility]ALTH[facility] Platelet Count 47(L) 155 - 369 10*3/uL LAB HEMATOLOGY METHOD 07/01/2025 12:06 AM EDT [facility] MCV 91 79 - 98 fL LAB HEMATOLOGY METHOD 07/01/2025 12:06 AM EDT [facility] MCH 30.6 26.0 - 32.0 pg LAB HEMATOLOGY METHOD 07/01/2025 12:06 AM EDT [facility] MCHC 33.7 30.7 - 35.5 g/dL LAB HEMATOLOGY METHOD 07/01/2025 12:06 AM EDT [facility] RDW 15.0(H) 11.5 - 14.5 % LAB HEMATOLOGY METHOD 07/01/2025 12:06 AM EDT [facility] MPV 11.6 8.8 - 12.5 fL LAB HEMATOLOGY METHOD 07/01/2025 12:06 AM EDT [facility] nRBC 0.0 <=0.0 per 100 WBCs LAB HEMATOLOGY METHOD 07/01/2025 12:06 AM EDT [facility] Differential Type Automated LAB HEMATOLOGY METHOD 07/01/2025 12:06 AM EDT [facility] Neutrophils % 57 % LAB HEMATOLOGY METHOD 07/01/2025 12:06 AM EDT [facility] Lymphocytes % 24 % LAB HEMATOLOGY METHOD 07/01/2025 12:06 AM EDT [facility] Monocytes % 16 % LAB HEMATOLOGY METHOD 07/01/2025 12:06 AM EDT [facility] Eosinophils % 3 % LAB HEMATOLOGY METHOD 07/01/2025 12:06 AM EDT [facility] Basophils % 0 % LAB HEMATOLOGY METHOD 07/01/2025 12:06 AM EDT [facility] Immature Granulocytes % 0 % LAB HEMATOLOGY METHOD 07/01/2025 12:06 AM EDT [facility] Neutrophils Absolute 1.79 1.60 - 6.10 10*3/uL LAB HEMATOLOGY METHOD 07/01/2025 12:06 AM EDT [facility] Lymphocytes Absolute 0.75(L) 1.20 - 3.90 10*3/uL LAB HEMATOLOGY METHOD 07/01/2025 12:06 AM EDT [facility] Monocytes Absolute 0.50 0.30 - 0.90 10*3/uL LAB HEMATOLOGY METHOD 07/01/2025 12:06 AM EDT [facility] Eosinophils Absolute 0.09 0.00 - 0.50 10*3/uL LAB HEMATOLOGY METHOD 07/01/2025 12:06 AM EDT [facility] Basophils Absolute 0.01 0.00 - 0.10 10*3/uL LAB HEMATOLOGY METHOD 07/01/2025 12:06 AM EDT [facility] Immature Granulocytes Absolute 0.01 0.00 - 0.06 10*3/uL LAB HEMATOLOGY METHOD 07/01/2025 12:06 AM EDT [facility] Blood Venous blood specimen / Unknown Venipuncture / Unknown 07/01/2025 12:00 AM EDT 07/01/2025 12:03 AM EDT Narrative [facility] - 07/01/2025 12:06 AM EDT Therapeutic decision making should be based on absolute values, rather than percentages. us Chilo Morales MD LAB BLOOD ORDERABLES Final Result [facility] [address] [place] [address] * (ABNORMAL) POCT glucose meter (06/30/2025 8:52 PM EDT) POCT Glucose 185(H) 74 - 99 mg/dL 06/30/2025 8:54 PM EDT [facility] Comment:Accuracy of [...] for testing. Comment 06/30/2025 8:54 PM EDT [facility] Steamfitter ID Love Gore 8:54 PM EDT [facility] Device ID [id number] 06/30/2025 8:54 PM EDT [facility] Specimen Type POC Capillary 06/30/2025 8:54 PM EDT [facility] Blood Capillary blood specimen / Unknown 06/30/2025 8:52 PM EDT 06/30/2025 8:54 PM EDT us Fabiana Cunningham MD LAB POINT OF CARE TE ST DOCKED DEVICE UNSOLICITED RESULTS Final Result Performing Organization Address City/State/[facility] de Phone Number HEALTHCARE LAB [address] [place] [address] * (ABNORMAL) POCT glucose meter (06/30/2025 4:40 PM EDT) [facility] POCT Glucose 169(H) 74 - 99 mg/dL 06/30/2025 4:41 PM EDT [facility] Comment:Accuracy of [...] Comment 06/30/2025 4:41 PM EDT [facility] Steamfitter ID Nadia Salazar 4:41 PM EDT [facility] Device ID [id number] 06/30/2025 4:41 PM EDT [facility] Specimen Type POC Capillary 06/30/2025 4:41 PM EDT [facility] Blood Capillary blood specimen / Unknown 06/30/2025 4:40 PM EDT 06/30/2025 4:41 PM EDT us Fabiana Cunningham MD LAB POINT OF CARE TE ST DOCKED DEVICE UNSOLICITED RESULTS Final Result [facility] [address] [place] [address] * (ABNORMAL) POCT glucose meter (06/30/2025 11:48 AM EDT) [facility] POCT Glucose 237(H) 74 - 99 mg/dL [...] 06/30/2025 11:50 AM EDT [facility] Steamfitter ID Nadia Salazar 11:50 AM EDT [facility] Device ID [id number] 06/30/2025 11:50 AM EDT [facility] Specimen Type POC Capillary 06/30/2025 11:50 AM EDT [facility] Blood Capillary blood specimen / Unknown 06/30/2025 11:48 AM EDT 06/30/2025 11:50 AM EDT us Fabiana Cunningham MD LAB POINT OF CARE TE ST DOCKED DEVICE UNSOLICITED RESULTS Final Result Performing Organization Address City/[facility]/ZIP Co de Phone Number [facility] [address] [place] [address] * (ABNORMAL) Ammonia, Plasma (06/30/2025 8:53 AM EDT) [facility] Ammonia 61(H) 11 - 51 umol/L 06/30/2025 9:26 AM EDT [facility] Blood Venous blood specimen / Unknown Venipuncture / Unknown 06/30/2025 8:53 AM EDT 06/30/2025 9:01 AM EDT us Fabiana Cunningham MD LAB BLOOD ORDERABLES Final Resu lt Performing Organization Address City/[facility]/ZIP Co de Phone Number [facility] [address] [place] [address] * (ABNORMAL) POCT glucose meter (06/30/2025 7:40 AM EDT) POCT Glucose 128(H) 74 - 99 mg/dL 06/30/2025 7:41 AM EDT [facility] Comment:Accuracy of a [...] for testing. Comment 06/30/2025 7:41 AM EDT [facility] Steamfitter ID Ndaia Salazar 7:41 AM EDT [facility]ALTH[facility] LAB Device ID [id number] 06/30/2025 7:41 AM EDT [facility] Specimen Type POC Capillary 06/30/2025 7:41 AM EDT [facility] Blood Capillary blood specimen / Unknown 06/30/2025 7:40 AM EDT 06/30/2025 7:41 AM EDT us Fabiana Cunningham MD LAB POINT OF CARE TE ST DOCKED DEVICE UNSOLICITED RESULTS Final Result Performing Organization Address City/State/[facility] Co de Phone Number [facility] [address] [place] [address] * Peripheral blood smear, pathologist interpretation (06/30/2025 12:37 AM EDT) Clinical Diagnosis, Peripheral Smear Pancytopenia LAB HEMATOLOGY METHOD 07/01/2025 12:12 PM EDT [facility] Interpretation , Peripheral Smear Pancytopenia, not morphologically distinct 07/01/2025 12:12 PM EDT [facility]ALTH[facility] Pathologist Signature, Peripheral Smear 07/01/2025 12:12 PM EDT [facility] Comment:Reviewed by: Stacy King MD LAB CP ASR DISCLAIMER No 07/01/2025 12:12 PM EDT [facility] Blood Venous blood specimen / Unknown Venipuncture / Unknown 06/30/2025 12:37 AM EDT 06/30/2025 12:40 AM EDT us Fabiana Cunningham MD LAB PATHOLOGY ORDERABLES Final Result [facility] [address] [place] [address] * (ABNORMAL) Comprehensive metabolic panel (06/30/2025 12:37 AM EDT) Glucose, Plasma 162(H) 74 - 99 mg/dL 06/30/2025 1:00 AM EDT [facility] BUN, Plasma 28(H) 8 - 23 mg/dL 06/30/2025 1:00 AM EDT [facility] Creatinine, Plasma 1.60(H) 0.60 - 1.10 mg/dL 06/30/2025 1:00 AM EDT [facility] BUN/Creatinine Ratio 18 06/30/2025 1:00 AM EDT [facility] Sodium, Plasma 135(L) 136 - 145 mmol/L 06/30/2025 1:00 AM EDT [facility] Potassium, Plasma 3.5(L) 3.6 - 4.9 mmol/L 06/30/2025 1:00 AM EDT [facility] Chloride, Plasma 107 97 - 107 mmol/L 06/30/2025 1:00 AM EDT [facility] CO2, Plasma 19(L) 22 - 29 mmol/L 06/30/2025 1:00 AM EDT [facility] Anion Gap 9 6 - 16 mmol/L 06/30/2025 1:00 AM EDT [facility] Total Calcium, Plasma 8.5(L) 8.9 - 10.2 mg/dL 06/30/2025 1:00 AM EDT [facility] Total Protein 5.7(L) 6.3 - 7.9 g/dL 06/30/2025 1:00 AM EDT [facility] Albumin, Plasma 2.9(L) 3.5 - 5.2 g/dL 06/30/2025 1:00 AM EDT [facility] AST, Plasma 45(H) 10 - 35 U/L 06/30/2025 1:00 AM EDT [facility] ALT, Plasma 21 10 - 35 U/L 06/30/2025 1:00 AM EDT [facility] Alkaline Phosphatase, Plasma 185(H) 46 - 142 U/L 06/30/2025 1:00 AM EDT [facility] Total Bilirubin, Plasma 2.9(H) 0.2 - 1.1 mg/dL 06/30/2025 1:00 AM EDT [facility] eGFRcr 36.3 mL/min/1.7 3m*2 06/30/2025 1:00 AM EDT [facility] Comment:Reported eGFRcr in m L/min/1.73m2 is based the CKD-EPI 2020 equation that does not use a race coefficient. Blood Venous blood specimen / Unknown Venipuncture / Unknown 06/30/2025 12:37 AM EDT 06/30/2025 12:40 AM EDT us Chilo Morales MD LAB BLOOD ORDERABLES Final Result Performing Organization Address [facility] Phone Number [facility] [address] [place] [address] * Phosphorus, Plasma (06/30/2025 12:37 AM EDT) Phosphorus, Plasma 3.0 2.5 - 4.5 mg/dL 06/30/2025 1:00 AM EDT [facility] Blood Venous blood specimen / Unknown Venipuncture / Unknown 06/30/2025 12:37 AM EDT 06/30/2025 12:40 AM EDT us Chilo Morales MD LAB BLOOD ORDERABLES Final Result Performing Organization Address [facility] de Phone Number [facility] [address] [place] [address] * (ABNORMAL) Magnesium, Plasma (06/30/2025 12:37 AM EDT) Magnesium, Plasma 1.5(L) 1.9 - 2.4 mg/dL 06/30/2025 1:00 AM EDT [facility] Blood Venous blood specimen / Unknown Venipuncture / Unknown 06/30/2025 12:37 AM EDT 06/30/2025 12:40 AM EDT us Chilo Morales MD LAB BLOOD ORDERABLES Final Result [facility] [address] [place] [address] * (ABNORMAL) Peripheral Blood Smear (06/30/2025 12:37 AM EDT) WBC Count 2.74(L) 3.70 - 10.30 10*3/uL LAB HEMATOLOGY METHOD 06/30/2025 1:28 AM EDT [facility] RBC Count 2.74(L) 3.90 - 5.20 10*6/uL LAB HEMATOLOGY METHOD 06/30/2025 1:28 AM EDT [facility] HGB 8.4(L) 11.2 - 15.7 g/dL LAB HEMATOLOGY METHOD 06/30/2025 1:28 AM EDT [facility] HCT 24.8(L) 34.0 - 45.0 % LAB HEMATOLOGY METHOD 06/30/2025 1:28 AM EDT [facility] Platelet Count 40(L) 155 - 369 10*3/uL LAB HEMATOLOGY METHOD 06/30/2025 1:28 AM EDT [facility] MCV 91 79 - 98 fL LAB HEMATOLOGY METHOD 06/30/2025 1:28 AM EDT [facility] MCH 30.7 26.0 - 32.0 pg LAB HEMATOLOGY METHOD 06/30/2025 1:28 AM EDT [facility] MCHC 33.9 30.7 - 35.5 g/dL LAB HEMATOLOGY METHOD 06/30/2025 1:28 AM EDT [facility] RDW 15.3(H) 11.5 - 14.5 % LAB HEMATOLOGY METHOD 06/30/2025 1:28 AM EDT [facility] MPV 10.3 8.8 - 12.5 fL LAB HEMATOLOGY METHOD 06/30/2025 1:28 AM EDT [facility] nRBC 0.0 <=0.0 per 100 WBCs LAB HEMATOLOGY METHOD 06/30/2025 1:28 AM EDT [facility] Differential Type Automated LAB HEMATOLOGY METHOD 06/30/2025 1:28 AM EDT [facility] Neutrophils % 54 % LAB HEMATOLOGY METHOD 06/30/2025 1:28 AM EDT [facility] Lymphocytes % 27 % LAB HEMATOLOGY METHOD 06/30/2025 1:28 AM EDT [facility] Monocytes % 16 % LAB HEMATOLOGY METHOD 06/30/2025 1:28 AM EDT [facility] Eosinophils % 3 % LAB HEMATOLOGY METHOD 06/30/2025 1:28 AM EDT [facility] Basophils % 0 % LAB HEMATOLOGY METHOD 06/30/2025 1:28 AM EDT [facility] Immature Granulocytes % 0 % LAB HEMATOLOGY METHOD 06/30/2025 1:28 AM EDT [facility] Neutrophils Absolute 1.45(L) 1.60 - 6.10 10*3/uL LAB HEMATOLOGY METHOD 06/30/2025 1:28 AM EDT [facility] Lymphocytes Absolute 0.73(L) 1.20 - 3.90 10*3/uL LAB HEMATOLOGY METHOD 06/30/2025 1:28 AM EDT [facility] Monocytes Absolute 0.45 0.30 - 0.90 10*3/uL LAB HEMATOLOGY METHOD 06/30/2025 1:28 AM EDT [facility] Eosinophils Absolute 0.09 0.00 - 0.50 10*3/uL LAB HEMATOLOGY METHOD 06/30/2025 1:28 AM EDT [facility] Basophils Absolute 0.01 0.00 - 0.10 10*3/uL LAB HEMATOLOGY METHOD 06/30/2025 1:28 AM EDT [facility] Immature Granulocytes Absolute 0.01 0.00 - 0.06 10*3/uL LAB HEMATOLOGY METHOD 06/30/2025 1:28 AM EDT [facility] Blood Venous blood specimen / Unknown Venipuncture / Unknown 06/30/2025 12:37 AM EDT 06/30/2025 12:40 AM EDT Narrative [facility]ALTH[facility]ARE LAB - 06/30/2025 1:28 AM EDT Therapeutic decision making should be based on absolute values, rather than percentages. us Fabiana Cunningham MD LAB PATHOLOGY ORDERABLES Final Result [facility] [address] [place] [id number] * (ABNORMAL) POCT glucose meter (06/29/2025 8:07 PM EDT) POCT Glucose 164(H) 74 - 99 mg/dL 06/29/2025 8:09 PM EDT [facility] Comment:Accuracy of [...] for testing. Comment 06/29/2025 8:09 PM EDT [facility] Steamfitter ID Kacy Corrales 06/29/2025 8:09 PM EDT [facility] LAB Device ID [id number] 06/29/2025 8:09 PM EDT [facility] Specimen Type POC Capillary 06/29/2025 8:09 PM EDT [facility] Blood Capillary blood specimen / Unknown 06/29/2025 8:07 PM EDT 06/29/2025 8:09 PM EDT us Fabiana Cunningham MD LAB POINT OF CARE TE ST DOCKED DEVICE UNSOLICITED RESULTS Final Result [facility] [address] [place] [address] * (ABNORMAL) POCT glucose meter (06/29/2025 4:40 PM EDT) [facility] POCT Glucose 158(H) 74 - 99 mg/dL 06/29/2025 4:41 PM EDT [facility] Comment:Accuracy of [...] Comment 06/29/2025 4:41 PM EDT [facility] Steamfitter ID Ashleigh Romero 4:41 PM EDT [facility] LAB Device ID [id number] 06/29/2025 4:41 PM EDT [facility] Specimen Type POC Capillary 06/29/2025 4:41 PM EDT [facility] Blood Capillary blood specimen / Unknown 06/29/2025 4:40 PM EDT 06/29/2025 4:41 PM EDT us Fabiana Cunningham MD LAB POINT OF CARE TE ST DOCKED DEVICE UNSOLICITED RESULTS Final Result Performing Organization Address City/[facility]/ZIP Co de Phone Number [facility] [address] [place] [address] * (ABNORMAL) POCT glucose meter (06/29/2025 12:12 PM EDT) [facility] POCT Glucose 227(H) 74 - 99 mg/dL [...] Comment 06/29/2025 12:13 PM EDT [facility] Steamfitter ID Ashleigh Romero 12:13 PM EDT [facility] LAB Device ID [id number] 06/29/2025 12:13 PM EDT [facility] Specimen Type POC Capillary 06/29/2025 12:13 PM EDT [facility] Blood Capillary blood specimen / Unknown 06/29/2025 12:12 PM EDT 06/29/2025 12:13 PM EDT Fabiana Cunningham MD LAB POINT OF CARE TE ST DOCKED DEVICE UNSOLICITED RESULTS Final Result Performing Organization Address [facility] Co de Phone Number [facility] [address] [place] [address] * (ABNORMAL) POCT glucose meter (06/29/2025 8:05 AM EDT) [facility] POCT Glucose 144(H) 74 - 99 mg/dL 06/29/2025 8:07 AM EDT [facility] Comment:Accuracy of [...] for testing. Comment 06/29/2025 8:07 AM EDT [facility] Steamfitter ID Ashleigh Romero 8:07 AM EDT [facility] Device ID [id number] 06/29/2025 8:07 AM EDT [facility] Specimen Type POC Capillary 06/29/2025 8:07 AM EDT [facility] Blood Capillary blood specimen / Unknown 06/29/2025 8:05 AM EDT 06/29/2025 8:07 AM EDT Fabiana Cunningham MD LAB POINT OF CARE TE ST DOCKED DEVICE UNSOLICITED RESULTS Final Result [facility] [address] [place] [address] * (ABNORMAL) Comprehensive metabolic panel (06/29/2025 12:18 AM EDT) Glucose, Plasma 159(H) 74 - 99 mg/dL 06/29/2025 12:51 AM EDT [facility] BUN, Plasma 26(H) 8 - 23 mg/dL 06/29/2025 12:51 AM EDT [facility] Creatinine, Plasma 1.49(H) 0.60 - 1.10 mg/dL 06/29/2025 12:51 AM EDT [facility] BUN/Creatinine Ratio 17 06/29/2025 12:51 AM EDT [facility] Sodium, Plasma 137 136 - 145 mmol/L 06/29/2025 12:51 AM EDT [facility] Potassium, Plasma 3.4(L) 3.6 - 4.9 mmol/L 06/29/2025 12:51 AM EDT [facility] Chloride, Plasma 108(H) 97 - 107 mmol/L 06/29/2025 12:51 AM EDT [facility] CO2, Plasma 19(L) 22 - 29 mmol/L 06/29/2025 12:51 AM EDT [facility] Anion Gap 10 6 - 16 mmol/L 06/29/2025 12:51 AM EDT [facility] Total Calcium, Plasma 8.7(L) 8.9 - 10.2 mg/dL 06/29/2025 12:51 AM EDT [facility] Total Protein 5.9(L) 6.3 - 7.9 g/dL 06/29/2025 12:51 AM EDT [facility] Albumin, Plasma 3.0(L) 3.5 - 5.2 g/dL 06/29/2025 12:51 AM EDT [facility] AST, Plasma 50(H) 10 - 35 U/L 06/29/2025 12:51 AM EDT [facility] ALT, Plasma 21 10 - 35 U/L 06/29/2025 12:51 AM EDT [facility] Alkaline Phosphatase, Plasma 201(H) 46 - 142 U/L 06/29/2025 12:51 AM EDT [facility] Total Bilirubin, Plasma 2.4(H) 0.2 - 1.1 mg/dL 06/29/2025 12:51 AM EDT [facility] eGFRcr 39.6 mL/min/1.7 3m*2 06/29/2025 12:51 AM EDT [facility] Comment:Reported eGFRcr in m L/min/1.73m2 is based the CKD-EPI 2020 equation that does not use a race coefficient. Blood Venous blood specimen / Unknown Venipuncture / Unknown 06/29/2025 12:18 AM EDT 06/29/2025 12:24 AM EDT Chilo Morales MD LAB BLOOD ORDERABLES Final Result Performing Organization Address City/[facility] Co de Phone Number [facility] [address] [place] [address] * Phosphorus, Plasma (06/29/2025 12:18 AM EDT) Phosphorus, Plasma 3.2 2.5 - 4.5 mg/dL 06/29/2025 12:51 AM EDT [facility] Blood Venous blood specimen / Unknown Venipuncture / Unknown 06/29/2025 12:18 AM EDT 06/29/2025 12:24 AM EDT Chilo Morales MD LAB BLOOD ORDERABLES Final Result [facility] [address] [place] [address] * (ABNORMAL) Magnesium, Plasma (06/29/2025 12:18 AM EDT) Magnesium, Plasma 1.8(L) 1.9 - 2.4 mg/dL 06/29/2025 12:51 AM EDT [facility] Blood Venous blood specimen / Unknown Venipuncture / Unknown 06/29/2025 12:18 AM EDT 06/29/2025 12:24 AM EDT us Chilo Morales MD LAB BLOOD ORDERABLES Final Result [facility] [address] [place] [id number] * (ABNORMAL) CBC and Differential (06/29/2025 12:18 AM EDT) [facility] WBC Count 2.22(L) 3.70 - 10.30 10*3/uL LAB HEMATOLOGY METHOD 06/29/2025 12:49 AM EDT [facility] RBC Count 2.86(L) 3.90 - 5.20 10*6/uL LAB HEMATOLOGY METHOD 06/29/2025 12:49 AM EDT [facility] HGB 8.8(L) 11.2 - 15.7 g/dL LAB HEMATOLOGY METHOD 06/29/2025 12:49 AM EDT [facility] HCT 25.5(L) 34.0 - 45.0 % LAB HEMATOLOGY METHOD 06/29/2025 12:49 AM EDT [facility] Platelet Count 39(L) 155 - 369 10*3/uL LAB HEMATOLOGY METHOD 06/29/2025 12:49 AM EDT [facility] MCV 89 79 - 98 fL LAB HEMATOLOGY METHOD 06/29/2025 12:49 AM EDT [facility] MCH 30.8 26.0 - 32.0 pg LAB HEMATOLOGY METHOD 06/29/2025 12:49 AM EDT [facility] MCHC 34.5 30.7 - 35.5 g/dL LAB HEMATOLOGY METHOD 06/29/2025 12:49 AM EDT [facility] RDW 15.4(H) 11.5 - 14.5 % LAB HEMATOLOGY METHOD 06/29/2025 12:49 AM EDT [facility] MPV 10.6 8.8 - 12.5 fL LAB HEMATOLOGY METHOD 06/29/2025 12:49 AM EDT [facility] nRBC 0.0 <=0.0 per 100 WBCs LAB HEMATOLOGY METHOD 06/29/2025 12:49 AM EDT [facility] Differential Type Automated LAB HEMATOLOGY METHOD 06/29/2025 12:49 AM EDT [facility] Neutrophils % 46 % LAB HEMATOLOGY METHOD 06/29/2025 12:49 AM EDT [facility] Lymphocytes % 28 % LAB HEMATOLOGY METHOD 06/29/2025 12:49 AM EDT [facility] Monocytes % 22 % LAB HEMATOLOGY METHOD 06/29/2025 12:49 AM EDT [facility] Eosinophils % 3 % LAB HEMATOLOGY METHOD 06/29/2025 12:49 AM EDT [facility] Basophils % 1 % LAB HEMATOLOGY METHOD 06/29/2025 12:49 AM EDT [facility] Immature Granulocytes % 0 % LAB HEMATOLOGY METHOD 06/29/2025 12:49 AM EDT [facility] Neutrophils Absolute 1.04(L) 1.60 - 6.10 10*3/uL LAB HEMATOLOGY METHOD 06/29/2025 12:49 AM EDT [facility] Lymphocytes Absolute 0.62(L) 1.20 - 3.90 10*3/uL LAB HEMATOLOGY METHOD 06/29/2025 12:49 AM EDT [facility] Monocytes Absolute 0.49 0.30 - 0.90 10*3/uL LAB HEMATOLOGY METHOD 06/29/2025 12:49 AM EDT [facility] Eosinophils Absolute 0.06 0.00 - 0.50 10*3/uL LAB HEMATOLOGY METHOD 06/29/2025 12:49 AM EDT [facility] Basophils Absolute 0.01 0.00 - 0.10 10*3/uL LAB HEMATOLOGY METHOD 06/29/2025 12:49 AM EDT [facility] Immature Granulocytes Absolute 0.00 0.00 - 0.06 10*3/uL LAB HEMATOLOGY METHOD 06/29/2025 12:49 AM EDT [facility] Blood Venous blood specimen / Unknown Venipuncture / Unknown 06/29/2025 12:18 AM EDT 06/29/2025 12:23 AM EDT [facility] - 06/29/2025 12:49 AM EDT Therapeutic decision making should be based on absolute values, rather than percentages. Chilo Morales MD LAB BLOOD ORDERABLES Final Result Performing Organization Address City/[facility]/ZIP Co de Phone Number [facility] [address] [place] [address] * (ABNORMAL) Ammonia, Plasma (06/29/2025 12:18 AM EDT) Pathologist [facility] Ammonia 125(H) 11 - 51 umol/L 06/29/2025 12:39 AM EDT [facility] Blood Venous blood specimen / Unknown Venipuncture / Unknown 06/29/2025 12:18 AM EDT 06/29/2025 12:21 AM EDT Fabiana Cunningham MD LAB BLOOD ORDERABLES Final Resu lt Performing Organization Address [facility] de Phone Number [facility] [address] [place] [address] * (ABNORMAL) POCT glucose meter (06/28/2025 10:35 PM EDT) Pathologist [facility] POCT Glucose 161(H) 74 - 99 mg/dL 06/28/2025 10:41 PM EDT [facility] Comment:Accuracy of a [...] for testing. Comment 06/28/2025 10:41 PM EDT [facility] Steamfitter ID [email or web address] 06/28/2025 10:41 PM EDT [facility] LAB Device ID [id number] 06/28/2025 10:41 PM EDT [facility] Specimen Type POC Capillary 06/28/2025 10:41 PM EDT [facility] Blood Capillary blood specimen / Unknown 06/28/2025 10:35 PM EDT 06/28/2025 10:41 PM EDT us Fabiana Cunningham MD LAB POINT OF CARE TE ST DOCKED DEVICE UNSOLICITED RESULTS Final Result Performing Organization Address City/[facility] Co de Phone Number [facility] [address] [place] [address] * (ABNORMAL) POCT glucose meter (06/28/2025 4:41 PM EDT) Pathologist [facility] POCT Glucose 153(H) 74 - 99 mg/dL [...] Comment 06/28/2025 4:43 PM EDT [facility] Steamfitter ID Ashleigh Romero 4:43 PM EDT [facility] LAB Device ID [id number] 06/28/2025 4:43 PM EDT [facility] Specimen Type POC Capillary 06/28/2025 4:43 PM EDT [facility] Blood Capillary blood specimen / Unknown 06/28/2025 4:41 PM EDT 06/28/2025 4:43 PM EDT Chilo Morales MD LAB POINT OF CARE T EST DOCKED DEVICE UNSOLICITED RESULTS Final Result Performing Organization Address City/State/[facility] Co de Phone Number [facility] [address] [place] [address] * (ABNORMAL) POCT glucose meter (06/28/2025 12:08 PM EDT) Pathologist [facility] POCT Glucose 202(H) 74 - 99 mg/dL 06/28/2025 12:10 PM EDT [facility] Comment:Accuracy of [...] for testing. Comment 06/28/2025 12:10 PM EDT [facility] Steamfitter ID Ashleigh Romero 12:10 PM EDT [facility] LAB Device ID [id number] 06/28/2025 12:10 PM EDT [facility] Specimen Type POC Capillary 06/28/2025 12:10 PM EDT [facility] Blood Capillary blood specimen / Unknown 06/28/2025 12:08 PM EDT 06/28/2025 12:10 PM EDT us Chilo Morales MD LAB POINT OF CARE T EST DOCKED DEVICE UNSOLICITED RESULTS Final Result Performing Organization Address City/[facility] Co de Phone Number [facility] [address] [place] [address] * (ABNORMAL) POCT glucose meter (06/28/2025 8:19 AM EDT) POCT Glucose 151(H) 74 - 99 mg/dL 06/28/2025 8:21 AM EDT [facility] Comment:Accuracy of a [...] for testing. Comment 06/28/2025 8:21 AM EDT [facility] Steamfitter ID Ashleigh Romero 8:21 AM EDT [facility] LAB Device ID [id number] 06/28/2025 8:21 AM EDT [facility] Specimen Type POC Capillary 06/28/2025 8:21 AM EDT [facility] Blood Capillary blood specimen / Unknown 06/28/2025 8:19 AM EDT 06/28/2025 8:21 AM EDT us Chilo Morales MD LAB POINT OF CARE T EST DOCKED DEVICE UNSOLICITED RESULTS Final Result Performing Organization Address City/[facility] Co de Phone Number [facility] [address] [place] [address] * (ABNORMAL) Prealbumin (06/28/2025 3:50 AM EDT) Prealbumin, Plasma 5.0(L) 20.0 - 41.0 mg/dL 06/28/2025 1:42 PM EDT [facility] Blood Venous blood specimen / Unknown Venipuncture / Unknown 06/28/2025 3:50 AM EDT 06/28/2025 4:27 AM EDT Chilo Morales MD LAB BLOOD ORDERABLES Final Result [facility] [address] [place] [address] * (ABNORMAL) Comprehensive metabolic panel (06/28/2025 3:50 AM EDT) Pathologist [facility] Glucose, Plasma 149(H) 74 - 99 mg/dL 06/28/2025 4:57 AM EDT [facility] BUN, Plasma 28(H) 8 - 23 mg/dL 06/28/2025 4:57 AM EDT [facility] Creatinine, Plasma 1.66(H) 0.60 - 1.10 mg/dL 06/28/2025 4:57 AM EDT [facility] BUN/Creatinine Ratio 17 06/28/2025 4:57 AM EDT [facility] Sodium, Plasma 136 136 - 145 mmol/L 06/28/2025 4:57 AM EDT [facility] Potassium, Plasma 3.5(L) 3.6 - 4.9 mmol/L 06/28/2025 4:57 AM EDT [facility] Chloride, Plasma 107 97 - 107 mmol/L 06/28/2025 4:57 AM EDT [facility] CO2, Plasma 18(L) 22 - 29 mmol/L 06/28/2025 4:57 AM EDT [facility] Anion Gap 11 6 - 16 mmol/L 06/28/2025 4:57 AM EDT [facility] Total Calcium, Plasma 8.3(L) 8.9 - 10.2 mg/dL 06/28/2025 4:57 AM EDT [facility] Total Protein 5.8(L) 6.3 - 7.9 g/dL 06/28/2025 4:57 AM EDT [facility] Albumin, Plasma 3.1(L) 3.5 - 5.2 g/dL 06/28/2025 4:57 AM EDT [facility] AST, Plasma 52(H) 10 - 35 U/L 06/28/2025 4:57 AM EDT [facility] ALT, Plasma 23 10 - 35 U/L 06/28/2025 4:57 AM EDT [facility] Alkaline Phosphatase, Plasma 194(H) 46 - 142 U/L 06/28/2025 4:57 AM EDT [facility] Total Bilirubin, Plasma 2.3(H) 0.2 - 1.1 mg/dL 06/28/2025 4:57 AM EDT [facility] eGFRcr 34.7 mL/min/1.7 3m*2 06/28/2025 4:57 AM EDT [facility] Comment:Reported eGFRcr in m L/min/1.73m2 is based the CKD-EPI 2020 equation that does not use a race coefficient. Blood Venous blood specimen / Unknown Venipuncture / Unknown 06/28/2025 3:50 AM EDT 06/28/2025 4:27 AM EDT Chilo Morales MD LAB BLOOD ORDERABLES Final Result Performing Organization Address City/[facility] Co de Phone Number [facility] [address] [place] [address] * Phosphorus, Plasma (06/28/2025 3:50 AM EDT) Phosphorus, Plasma 3.5 2.5 - 4.5 mg/dL 06/28/2025 4:57 AM EDT [facility] Blood Venous blood specimen / Unknown Venipuncture / Unknown 06/28/2025 3:50 AM EDT 06/28/2025 4:27 AM EDT Chilo Morlaes MD LAB BLOOD ORDERABLES Final Result [facility] [address] [place] [address] * (ABNORMAL) Magnesium, Plasma (06/28/2025 3:50 AM EDT) Magnesium, Plasma 1.8(L) 1.9 - 2.4 mg/dL 06/28/2025 4:57 AM EDT [facility] Blood Venous blood specimen / Unknown Venipuncture / Unknown 06/28/2025 3:50 AM EDT 06/28/2025 4:27 AM EDT us Chilo Morales MD LAB BLOOD ORDERABLES Final Result [facility] [address] [place] [address] * (ABNORMAL) CBC and Differential (06/28/2025 3:50 AM EDT) WBC Count 1.69(L) 3.70 - 10.30 10*3/uL LAB HEMATOLOGY METHOD 06/28/2025 5:04 AM EDT [facility] RBC Count 2.72(L) 3.90 - 5.20 10*6/uL LAB HEMATOLOGY METHOD 06/28/2025 5:04 AM EDT [facility] HGB 8.3(L) 11.2 - 15.7 g/dL LAB HEMATOLOGY METHOD 06/28/2025 5:04 AM EDT [facility] HCT 24.6(L) 34.0 - 45.0 % LAB HEMATOLOGY METHOD 06/28/2025 5:04 AM EDT [facility] Platelet Count 40(L) 155 - 369 10*3/uL LAB HEMATOLOGY METHOD 06/28/2025 5:04 AM EDT [facility] MCV 90 79 - 98 fL LAB HEMATOLOGY METHOD 06/28/2025 5:04 AM EDT [facility] MCH 30.5 26.0 - 32.0 pg LAB HEMATOLOGY METHOD 06/28/2025 5:04 AM EDT [facility] MCHC 33.7 30.7 - 35.5 g/dL LAB HEMATOLOGY METHOD 06/28/2025 5:04 AM EDT [facility] RDW 15.5(H) 11.5 - 14.5 % LAB HEMATOLOGY METHOD 06/28/2025 5:04 AM EDT [facility] MPV 11.3 8.8 - 12.5 fL LAB HEMATOLOGY METHOD 06/28/2025 5:04 AM EDT [facility] nRBC 0.0 <=0.0 per 100 WBCs LAB HEMATOLOGY METHOD 06/28/2025 5:04 AM EDT [facility] Differential Type Automated LAB HEMATOLOGY METHOD 06/28/2025 5:04 AM EDT [facility] Neutrophils % 40 % LAB HEMATOLOGY METHOD 06/28/2025 5:04 AM EDT [facility] Lymphocytes % 31 % LAB HEMATOLOGY METHOD 06/28/2025 5:04 AM EDT [facility] Monocytes % 23 % LAB HEMATOLOGY METHOD 06/28/2025 5:04 AM EDT [facility] Eosinophils % 4 % LAB HEMATOLOGY METHOD 06/28/2025 5:04 AM EDT [facility] Basophils % 1 % LAB HEMATOLOGY METHOD 06/28/2025 5:04 AM EDT [facility] Immature Granulocytes % 1 % LAB HEMATOLOGY METHOD 06/28/2025 5:04 AM EDT [facility] Neutrophils Absolute 0.69(LL) 1.60 - 6.10 10*3/uL LAB HEMATOLOGY METHOD 06/28/2025 5:04 AM EDT [facility] Lymphocytes Absolute 0.53(L) 1.20 - 3.90 10*3/uL LAB HEMATOLOGY METHOD 06/28/2025 5:04 AM EDT [facility] Monocytes Absolute 0.39 0.30 - 0.90 10*3/uL LAB HEMATOLOGY METHOD 06/28/2025 5:04 AM EDT [facility] Eosinophils Absolute 0.06 0.00 - 0.50 10*3/uL LAB HEMATOLOGY METHOD 06/28/2025 5:04 AM EDT [facility] Basophils Absolute 0.01 0.00 - 0.10 10*3/uL LAB HEMATOLOGY METHOD 06/28/2025 5:04 AM EDT [facility] Immature Granulocytes Absolute 0.01 0.00 - 0.06 10*3/uL LAB HEMATOLOGY METHOD 06/28/2025 5:04 AM EDT [facility] Blood Venous blood specimen / Unknown Venipuncture / Unknown 06/28/2025 3:50 AM EDT 06/28/2025 4:26 AM EDT Narrative [facility]ALTHCARE LAB - 06/28/2025 5:04 AM EDT Therapeutic decision making should be based on absolute values, rather than percentages. us Chilo Morales MD LAB BLOOD ORDERABLES Final Result [facility] [address] [place] [address] * (ABNORMAL) POCT glucose meter (06/27/2025 8:04 PM EDT) [facility] POCT Glucose 232(H) 74 - 99 mg/dL 06/27/2025 8:05 PM EDT [facility] Comment:Accuracy [...] Comment 06/27/2025 8:05 PM EDT [facility] Steamfitter ID Nav GillShahidTracie Saucedo 06/27/2025 8:05 PM EDT [facility] LAB Device ID [id number] 06/27/2025 8:05 PM EDT [facility] Specimen Type POC Capillary 06/27/2025 8:05 PM EDT [facility] Blood Capillary blood specimen / Unknown 06/27/2025 8:04 PM EDT 06/27/2025 8:05 PM EDT Chilo Morales MD LAB POINT OF CARE T EST DOCKED DEVICE UNSOLICITED RESULTS Final Result Performing Organization Address City/State/[facility] Co de Phone Number [facility] [address] [place] [address] * (ABNORMAL) POCT glucose meter (06/27/2025 4:41 PM EDT) [facility] POCT Glucose 183(H) 74 - 99 mg/dL 06/27/2025 4:42 PM EDT [facility] Comment:Accuracy of a [...] Comment 06/27/2025 4:42 PM EDT [facility] Steamfitter ID Ashleigh Romero 4:42 PM EDT [facility] LAB Device ID [id number] 06/27/2025 4:42 PM EDT [facility] Specimen Type POC Capillary 06/27/2025 4:42 PM EDT [facility] Blood Capillary blood specimen / Unknown 06/27/2025 4:41 PM EDT 06/27/2025 4:42 PM EDT us Chilo Morales MD LAB POINT OF CARE T EST DOCKED DEVICE UNSOLICITED RESULTS Final Result Performing Organization Address [facility] Co de Phone Number [facility] [address] [place] [address] * (ABNORMAL) APTT (06/27/2025 2:37 PM EDT) Pathologist [facility] aPTT 42(H) 25 - 35 sec 06/27/2025 3:10 PM EDT [facility] Blood Venous blood specimen / Unknown Venipuncture / Unknown 06/27/2025 2:37 PM EDT 06/27/2025 2:44 PM EDT Chilo Morales MD LAB BLOOD ORDERABLES Final Result Performing Organization Address [facility] de Phone Number [facility] [address] [place] [address] * (ABNORMAL) CBC and differential (06/27/2025 2:37 PM EDT) WBC Count 1.51(L) 3.70 - 10.30 10*3/uL LAB HEMATOLOGY METHOD 06/27/2025 3:06 PM EDT [facility] RBC Count 2.99(L) 3.90 - 5.20 10*6/uL LAB HEMATOLOGY METHOD 06/27/2025 3:06 PM EDT [facility] HGB 9.4(L) 11.2 - 15.7 g/dL LAB HEMATOLOGY METHOD 06/27/2025 3:06 PM EDT [facility] HCT 27.7(L) 34.0 - 45.0 % LAB HEMATOLOGY METHOD 06/27/2025 3:06 PM EDT [facility] Platelet Count 35(L) 155 - 369 10*3/uL LAB HEMATOLOGY METHOD 06/27/2025 3:06 PM EDT [facility] MCV 93 79 - 98 fL LAB HEMATOLOGY METHOD 06/27/2025 3:06 PM EDT [facility] MCH 31.4 26.0 - 32.0 pg LAB HEMATOLOGY METHOD 06/27/2025 3:06 PM EDT [facility] MCHC 33.9 30.7 - 35.5 g/dL LAB HEMATOLOGY METHOD 06/27/2025 3:06 PM EDT [facility] RDW 15.8(H) 11.5 - 14.5 % LAB HEMATOLOGY METHOD 06/27/2025 3:06 PM EDT [facility] MPV 10.8 8.8 - 12.5 fL LAB HEMATOLOGY METHOD 06/27/2025 3:06 PM EDT [facility] nRBC 0.0 <=0.0 per 100 WBCs LAB HEMATOLOGY METHOD 06/27/2025 3:06 PM EDT [facility] Differential Type Automated LAB HEMATOLOGY METHOD 06/27/2025 3:06 PM EDT [facility] Neutrophils % 37 % LAB HEMATOLOGY METHOD 06/27/2025 3:06 PM EDT [facility] Lymphocytes % 40 % LAB HEMATOLOGY METHOD 06/27/2025 3:06 PM EDT [facility] Monocytes % 18 % LAB HEMATOLOGY METHOD 06/27/2025 3:06 PM EDT [facility] Eosinophils % 4 % LAB HEMATOLOGY METHOD 06/27/2025 3:06 PM EDT [facility] Basophils % 1 % LAB HEMATOLOGY METHOD 06/27/2025 3:06 PM EDT [facility] Immature Granulocytes % 0 % LAB HEMATOLOGY METHOD 06/27/2025 3:06 PM EDT [facility] Neutrophils Absolute 0.56(LL) 1.60 - 6.10 10*3/uL LAB HEMATOLOGY METHOD 06/27/2025 3:06 PM EDT [facility] Lymphocytes Absolute 0.61(L) 1.20 - 3.90 10*3/uL LAB HEMATOLOGY METHOD 06/27/2025 3:06 PM EDT [facility] Monocytes Absolute 0.27(L) 0.30 - 0.90 10*3/uL LAB HEMATOLOGY METHOD 06/27/2025 3:06 PM EDT [facility] Eosinophils Absolute 0.06 0.00 - 0.50 10*3/uL LAB HEMATOLOGY METHOD 06/27/2025 3:06 PM EDT [facility] Basophils Absolute 0.01 0.00 - 0.10 10*3/uL LAB HEMATOLOGY METHOD 06/27/2025 3:06 PM EDT [facility] Immature Granulocytes Absolute 0.00 0.00 - 0.06 10*3/uL LAB HEMATOLOGY METHOD 06/27/2025 3:06 PM EDT [facility] Blood Venous blood specimen / Unknown Venipuncture / Unknown 06/27/2025 2:37 PM EDT 06/27/2025 2:44 PM EDT Narrative [facility] - 06/27/2025 3:06 PM EDT Therapeutic decision making should be based on absolute values, rather than percentages. us Chilo Morales MD LAB BLOOD ORDERABLES Final Result Performing Organization Address [facility] Co de Phone Number [facility] [address] [place] [address] * (ABNORMAL) Magnesium (06/27/2025 2:37 PM EDT) Magnesium, Plasma 1.5(L) 1.9 - 2.4 mg/dL 06/27/2025 3:10 PM EDT [facility] Blood Venous blood specimen / Unknown Venipuncture / Unknown 06/27/2025 2:37 PM EDT 06/27/2025 2:44 PM EDT us Chilo Morales MD LAB BLOOD ORDERABLES Final Result Performing Organization Address [facility] Co de Phone Number [facility] [address] [place] [address] * (ABNORMAL) Basic metabolic panel (06/27/2025 2:37 PM EDT) Glucose, Plasma 90 74 - 99 mg/dL 06/27/2025 3:10 PM EDT [facility] BUN, Plasma 29(H) 8 - 23 mg/dL 06/27/2025 3:10 PM EDT [facility] Creatinine, Plasma 1.83(H) 0.60 - 1.10 mg/dL 06/27/2025 3:10 PM EDT [facility] BUN/Creatinine Ratio 16 06/27/2025 3:10 PM EDT [facility] Sodium, Plasma 139 136 - 145 mmol/L 06/27/2025 3:10 PM EDT [facility] Potassium, Plasma 3.7 3.6 - 4.9 mmol/L 06/27/2025 3:10 PM EDT [facility] Chloride, Plasma 108(H) 97 - 107 mmol/L 06/27/2025 3:10 PM EDT [facility] CO2, Plasma 19(L) 22 - 29 mmol/L 06/27/2025 3:10 PM EDT [facility] Anion Gap 12 6 - 16 mmol/L 06/27/2025 3:10 PM EDT [facility] Total Calcium, Plasma 8.6(L) 8.9 - 10.2 mg/dL 06/27/2025 3:10 PM EDT [facility] eGFRcr 30.9 mL/min/1.7 3m*2 06/27/2025 3:10 PM EDT [facility] Comment:Reported eGFRcr in m L/min/1.73m2 is based the CKD-EPI 2020 equation that does not use a race coefficient. Blood Venous blood specimen / Unknown Venipuncture / Unknown 06/27/2025 2:37 PM EDT 06/27/2025 2:44 PM EDT us Chilo Morales MD LAB BLOOD ORDERABLES Final Result [facility] [address] [place], [place] [id number] * XR Chest 1 View (06/27/2025 10:49 [...] MD on 06/27/2025 11:46 AM us Marianna Gordon [employer] IMG XR PROCEDURES Final Resu lt * (ABNORMAL) POCT glucose meter (06/27/2025 10:27 AM EDT) [facility] POCT Glucose 105(H) 74 - 99 mg/dL 06/27/2025 10:28 AM EDT [facility] Comment:Accuracy of a [...] for testing. Comment 06/27/2025 10:28 AM EDT [facility] Steamfitter ID Alvarez Mcclure 10:28 AM EDT [facility] Device ID [id number] 06/27/2025 10:28 AM EDT [facility] Specimen Type POC Capillary 06/27/2025 10:28 AM EDT [facility] Blood Capillary blood specimen / Unknown 06/27/2025 10:27 AM EDT 06/27/2025 10:28 AM EDT us Chilo Morales MD LAB POINT OF CARE T EST DOCKED DEVICE UNSOLICITED RESULTS Final Result [facility] [address] [place] [address] * US Guided Thoracentesis (06/27/2025 10:03 AM [...] CXR with moderate right pleural effusion. TECHNIQUE: Excel Analyst: Marianna Gordon APRN Secondary Steamfitter: None. Nurse: [place] Technologist: Dayne Rad Dose: NA Medications: Continuous physiologic monitoring provided [...] CXR with moderate right pleural effusion. TECHNIQUE: Excel Analyst: Marianna Gordon APRN Secondary Steamfitter: None. Nurse: [place] Technologist: Dayne Phillips Dose: [...] on 06/27/2025 2:58 PM us Shaniqua Mccurdy APRN IMG US PROCEDURES Final Resu lt [...] CXR with moderate right pleural effusion. TECHNIQUE: Excel Analyst: Marianna Gordon APRN Secondary Steamfitter: None. Nurse: [place] Technologist: Dayne Phillips Dose: [...] CXR with moderate right pleural effusion. TECHNIQUE: Excel Analyst: Marianna Gordon APRN Secondary Steamfitter: None. Nurse: [place] Technologist: Dayne Phillips Dose: [...] on 06/27/2025 2:59 PM us Shaniqua Mccurdy [employer] IMG US PROCEDURES Final Resu lt * Body fluid, cytospin, pathologist interpretation (06/27/2025 9:16 AM EDT) Specimen Type Body Fluid LAB HEMATOLOGY METHOD 06/28/2025 5:28 PM EDT [facility] Specimen Source, Body Fluid Peritoneal Fluid LAB HEMATOLOGY METHOD 06/28/2025 5:28 PM EDT [facility] Clinical Diagnosis, Body Fluid Ascites LAB HEMATOLOGY METHOD 06/28/2025 5:28 PM EDT [facility] Interpretation , Body Fluid No evidence of malignancy Chronic inflammatory cells Lymphocytosis Moderate blood A resident was involved in the service. I attest I examined the relevant preparations for the specimens and confirmed the diagnosis or interpretation. 06/28/2025 5:28 PM EDT [facility] Pathologist Signature, Body Fluid 06/28/2025 5:28 PM EDT [facility] Comment:Reviewed by: Kadie dobbs MD LAB CP ASR DISCLAIMER Yes 06/28/2025 5:28 PM EDT [facility] Body Fluid Peritoneal fluid / Unknown Non-blood Collection / Unknown 06/27/2025 9:16 AM EDT 06/27/2025 11:21 AM EDT Chilo Morales MD LAB BODY FLUIDS AND STOOLS ORDERABLES Final Result [facility] [address] [place] [address] * LDH - Ascites (06/27/2025 9:16 AM EDT) LDH, Fluid 37 U/L 06/27/2025 2:46 PM EDT [facility] Peritoneal Fluid Peritoneal cavity structure / Unknown Non-blood Collection / Unknown 06/27/2025 9:16 AM EDT 06/27/2025 11:21 AM EDT Narrative [facility] - 06/27/2025 2:46 PM EDT [...] STOOLS ORDERABLES Final Result Performing Organization Address [facility] Co de Phone Number [facility] [address] [place] [address] * Albumin - Ascites (06/27/2025 9:16 AM EDT) Albumin, Peritoneal Fluid 0.5 g/dL 06/27/2025 2:46 PM EDT [facility] Peritoneal Fluid Peritoneal cavity structure / Unknown Non-blood Collection / Unknown 06/27/2025 9:16 AM EDT 06/27/2025 11:21 AM EDT Narrative [facility] - 06/27/2025 2:46 PM EDT REPORTING RESULTS Reference Values: No established reference interval. Results should be interpreted in comparison to the concentration in blood and in conjunction with the clinical context. This test was developed and its performance characteristics determined by [facility]. The U.S. Food and Drug Administration has not approved or cleared this test; however, FDA clearance or approval is not currently required for clinical use. The results are not intended to be used as the sole means for clinical diagnosis or patient management decisions. Chilo Morales MD LAB BODY FLUIDS AND STOOLS ORDERABLES Final Result Performing Organization Address [facility] Co de Phone Number [facility] [address] [place] [address] * Protein - Ascites (06/27/2025 9:16 AM EDT) Total Protein, Fluid 0.7 g/dL 06/27/2025 2:46 PM EDT [facility] Peritoneal Fluid Peritoneal cavity structure / Unknown Non-blood Collection / Unknown 06/27/2025 9:16 AM EDT 06/27/2025 11:21 AM EDT Narrative [facility] - 06/27/2025 2:46 PM EDT This test was developed and its performance characteristics determined by [facility]. The U.S. Food and Drug Administration has not approved or cleared this test. However, FDA clearance or approval is not currently required for clinical use. The results are not intended to be used as the sole means for clinical diagnosis or patient management decisions. Chilo Morales MD LAB BODY FLUIDS AND STOOLS ORDERABLES Final Result Performing Organization Address [facility] Co de Phone Number [facility] [address] [place] [address] * Glucose - Ascites (06/27/2025 9:16 AM EDT) Glucose, Fluid 130 mg/dL 06/27/2025 2:46 PM EDT [facility] Peritoneal Fluid Peritoneal cavity structure / Unknown Non-blood Collection / Unknown 06/27/2025 9:16 AM EDT 06/27/2025 11:21 AM EDT Narrative [facility] - 06/27/2025 2:46 PM EDT [...] STOOLS ORDERABLES Final Result Performing Organization Address [facility] de Phone Number [facility] [address] [place] [address] * Body Fluid Culture and Gram Stain (06/27/2025 9:16 AM EDT) Culture No growth at day 4 2024 11:06 AM EDT [facility] Gram Stain Result No polymorphonuclear leukocytes seen 06/30/2025 11:06 AM EDT [facility] Gram Stain Result No organisms seen 06/30/2025 11:06 AM EDT [facility] Peritoneal Fluid Peritoneal cavity structure / Unknown Non-blood Collection / Unknown 06/27/2025 9:16 AM EDT 06/27/2025 11:50 AM EDT us Chilo Morales MD LAB MICROBIOLOGY - GENERAL ORDERABLES Final Result [facility] [address] [place] [address] * (ABNORMAL) Body Fluid Cell Count With Diff - Ascites (06/27/2025 9:16 AM EDT) Color, Body fluid [place] LAB HEMATOLOGY METHOD 06/27/2025 3:28 PM EDT [facility] Appearance, Body fluid Cloudy(A) LAB HEMATOLOGY METHOD 06/27/2025 3:28 PM EDT [facility] Volume, Body fluid 27.0 cc LAB HEMATOLOGY METHOD 06/27/2025 3:28 PM EDT [facility] Fluid Container Specimen received in miscellaneous container LAB HEMATOLOGY METHOD 06/27/2025 3:28 PM EDT [facility] Red Blood Cell Count, Body fluid 11,000 uL LAB HEMATOLOGY METHOD 06/27/2025 3:28 PM EDT [facility] Total Nucleated Cell Count, Body fluid 202 uL LAB HEMATOLOGY METHOD 06/27/2025 3:28 PM EDT [facility] Neutrophils %, Body fluid 0 % LAB HEMATOLOGY METHOD 06/27/2025 3:28 PM EDT [facility] Lymphocytes %, Body fluid 93 % LAB HEMATOLOGY METHOD 06/27/2025 3:28 PM EDT [facility] Monocytes/Macr ophages %, Body fluid 7 % LAB HEMATOLOGY METHOD 06/27/2025 3:28 PM EDT [facility] Eosinophils %, Body fluid 0 % LAB HEMATOLOGY METHOD 06/27/2025 3:28 PM EDT [facility] Lining/Mesothe lial Cells %, Body fluid 0 % LAB HEMATOLOGY METHOD 06/27/2025 3:28 PM EDT [facility] Neutrophils Absolute (PMN), Body fluid 0 uL LAB HEMATOLOGY METHOD 06/27/2025 3:28 PM EDT [facility] Lymphocytes Absolute, Body fluid 188 uL LAB HEMATOLOGY METHOD 06/27/2025 3:28 PM EDT [facility] Monocytes/Macr ophages Absolute, Body fluid 14 uL LAB HEMATOLOGY METHOD 06/27/2025 3:28 PM EDT [facility] Eosinophils Absolute, Body fluid 0 uL LAB HEMATOLOGY METHOD 06/27/2025 3:28 PM EDT [facility] Basophils Absolute, Body fluid 0 uL LAB HEMATOLOGY METHOD 06/27/2025 3:28 PM EDT [facility] Lining/Mesothe lial Cells Absolute, Body fluid 0 uL LAB HEMATOLOGY METHOD 06/27/2025 3:28 PM EDT [facility] Basophils %, Body fluid 0 % LAB HEMATOLOGY METHOD 06/27/2025 3:28 PM EDT [facility] Body Fluid Peritoneal fluid / Unknown Non-blood Collection / Unknown 06/27/2025 9:16 AM EDT 06/27/2025 11:21 AM EDT Chilo Morales MD LAB BODY FLUIDS AND STOOLS ORDERABLES NO SPECIMEN TYPE/SOURCE Final Result [facility] [address] [place] [address] * (ABNORMAL) POCT glucose meter (06/27/2025 5:53 AM EDT) POCT Glucose 108(H) 74 - 99 mg/dL 06/27/2025 5:55 AM EDT [facility] Comment:Accuracy of [...] for testing. Comment 06/27/2025 5:55 AM EDT [facility] Steamfitter ID Torrie Alston 5:55 AM EDT [facility] Device ID [id number] 06/27/2025 5:55 AM EDT [facility] Specimen Type POC Capillary 06/27/2025 5:55 AM EDT [facility] Blood Capillary blood specimen / Unknown 06/27/2025 5:53 AM EDT 06/27/2025 5:55 AM EDT us Chilo Morales MD LAB POINT OF CARE T EST DOCKED DEVICE UNSOLICITED RESULTS Final Result Performing Organization Address [facility] de Phone Number [facility] [address] [place] [address] * (ABNORMAL) Cystatin C (06/27/2025 4:03 AM EDT) [facility] Cystatin C 2.97(H) 0.61 - 0.95 mg/L 06/27/2025 11:21 AM EDT [facility] Blood Venous blood specimen / Unknown Venipuncture / Unknown 06/27/2025 4:03 AM EDT 06/27/2025 4:40 AM EDT us Chilo Morales MD LAB BLOOD ORDERABLES Final Result Performing Organization Address [facility] de Phone Number [facility] [address] [place] [address] * Morphology (06/27/2025 4:03 AM EDT) [facility] RBC Morphology Slide Reviewed LAB HEMATOLOGY METHOD 06/27/2025 5:26 AM EDT [facility] Target Cells Present LAB HEMATOLOGY METHOD 06/27/2025 5:26 AM EDT [facility] Blood Venous blood specimen / Unknown Venipuncture / Unknown 06/27/2025 4:03 AM EDT 06/27/2025 4:40 AM EDT Chilo Morales MD LAB BLOOD ORDERABLES Final Result Performing Organization Address [facility] de Phone Number [facility] [address] [place] [address] * (ABNORMAL) Comprehensive metabolic panel (06/27/2025 4:03 AM EDT) [facility] Glucose, Plasma 139(H) 74 - 99 mg/dL 06/27/2025 5:03 AM EDT [facility] BUN, Plasma 31(H) 8 - 23 mg/dL 06/27/2025 5:03 AM EDT [facility] Creatinine, Plasma 1.95(H) 0.60 - 1.10 mg/dL 06/27/2025 5:03 AM [facility] BUN/Creatinine Ratio 16 06/27/2025 5:03 AM EDT [facility] Sodium, Plasma 134(L) 136 - 145 mmol/L 06/27/2025 5:03 AM [facility] Potassium, Plasma 3.8 3.6 - 4.9 mmol/L 06/27/2025 5:03 AM [facility] Chloride, Plasma 108(H) 97 - 107 mmol/L 06/27/2025 5:03 AM [facility] CO2, Plasma 18(L) 22 - 29 mmol/L 06/27/2025 5:03 AM [facility] Anion Gap 8 6 - 16 mmol/L 06/27/2025 5:03 AM [facility] Total Calcium, Plasma 8.5(L) 8.9 - 10.2 mg/dL 06/27/2025 5:03 AM [facility] Total Protein 5.8(L) 6.3 - 7.9 g/dL 06/27/2025 5:03 AM [facility] Albumin, Plasma 2.8(L) 3.5 - 5.2 g/dL 06/27/2025 5:03 AM [facility] AST, Plasma 60(H) 10 - 35 U/L 06/27/2025 5:03 AM [facility] ALT, Plasma 26 10 - 35 U/L 06/27/2025 5:03 AM [facility] Alkaline Phosphatase, Plasma 215(H) 46 - 142 U/L 06/27/2025 5:03 AM [facility] Total Bilirubin, Plasma 1.8(H) 0.2 - 1.1 mg/dL 06/27/2025 5:03 AM [facility] eGFRcr 28.6 mL/min/1.7 3m*2 06/27/2025 5:03 AM [facility] Comment:Reported eGFRcr in m L/min/1.73m2 is based the CKD-EPI 2020 equation that does not use a race coefficient. Blood Venous blood specimen / Unknown Venipuncture / Unknown 06/27/2025 4:03 AM EDT 06/27/2025 4:40 AM EDT us Chilo Morales MD LAB BLOOD ORDERABLES Final Result Performing Organization Address City/[facility]/ZIP Co de Phone Number [facility] [address] [place] [address] * Phosphorus, Plasma (06/27/2025 4:03 AM EDT) Phosphorus, Plasma 3.2 2.5 - 4.5 mg/dL 06/27/2025 5:03 AM EDT [facility] Blood Venous blood specimen / Unknown Venipuncture / Unknown 06/27/2025 4:03 AM EDT 06/27/2025 4:40 AM EDT us Chilo Morales MD LAB BLOOD ORDERABLES Final Result Performing Organization Address [facility] Co de Phone Number [facility] [address] [place] [address] * (ABNORMAL) Magnesium, Plasma (06/27/2025 4:03 AM EDT) Magnesium, Plasma 1.5(L) 1.9 - 2.4 mg/dL 06/27/2025 5:03 AM EDT [facility] Blood Venous blood specimen / Unknown Venipuncture / Unknown 06/27/2025 4:03 AM EDT 06/27/2025 4:40 AM EDT us Chilo Morales MD LAB BLOOD ORDERABLES Final Result Performing Organization Address City/[facility] Co de Phone Number [facility] [address] [place] [address] * (ABNORMAL) CBC and Differential (06/27/2025 4:03 AM EDT) WBC Count 2.26(L) 3.70 - 10.30 10*3/uL LAB HEMATOLOGY METHOD 06/27/2025 5:26 AM EDT [facility] RBC Count 2.83(L) 3.90 - 5.20 10*6/uL LAB HEMATOLOGY METHOD 06/27/2025 5:26 AM EDT [facility] HGB 8.6(L) 11.2 - 15.7 g/dL LAB HEMATOLOGY METHOD 06/27/2025 5:26 AM EDT [facility] HCT 25.9(L) 34.0 - 45.0 % LAB HEMATOLOGY METHOD 06/27/2025 5:26 AM EDT [facility] Platelet Count 38(L) 155 - 369 10*3/uL LAB HEMATOLOGY METHOD 06/27/2025 5:26 AM EDT [facility] MCV 92 79 - 98 fL LAB HEMATOLOGY METHOD 06/27/2025 5:26 AM EDT [facility] MCH 30.4 26.0 - 32.0 pg LAB HEMATOLOGY METHOD 06/27/2025 5:26 AM EDT [facility] MCHC 33.2 30.7 - 35.5 g/dL LAB HEMATOLOGY METHOD 06/27/2025 5:26 AM EDT [facility] RDW 15.9(H) 11.5 - 14.5 % LAB HEMATOLOGY METHOD 06/27/2025 5:26 AM EDT [facility] MPV 11.8 8.8 - 12.5 fL LAB HEMATOLOGY METHOD 06/27/2025 5:26 AM EDT [facility] nRBC 0.0 <=0.0 per 100 WBCs LAB HEMATOLOGY METHOD 06/27/2025 5:26 AM EDT [facility] Differential Type Automated LAB HEMATOLOGY METHOD 06/27/2025 5:26 AM EDT [facility] Neutrophils % 43 % LAB HEMATOLOGY METHOD 06/27/2025 5:26 AM EDT [facility] Lymphocytes % 30 % LAB HEMATOLOGY METHOD 06/27/2025 5:26 AM EDT [facility] Monocytes % 24 % LAB HEMATOLOGY METHOD 06/27/2025 5:26 AM EDT [facility] Eosinophils % 3 % LAB HEMATOLOGY METHOD 06/27/2025 5:26 AM EDT [facility] Basophils % 0 % LAB HEMATOLOGY METHOD 06/27/2025 5:26 AM EDT [facility] Immature Granulocytes % 0 % LAB HEMATOLOGY METHOD 06/27/2025 5:26 AM EDT [facility] Neutrophils Absolute 0.98(LL) 1.60 - 6.10 10*3/uL LAB HEMATOLOGY METHOD 06/27/2025 5:26 AM EDT [facility] Lymphocytes Absolute 0.67(L) 1.20 - 3.90 10*3/uL LAB HEMATOLOGY METHOD 06/27/2025 5:26 AM EDT [facility] Monocytes Absolute 0.53 0.30 - 0.90 10*3/uL LAB HEMATOLOGY METHOD 06/27/2025 5:26 AM EDT [facility] Eosinophils Absolute 0.07 0.00 - 0.50 10*3/uL LAB HEMATOLOGY METHOD 06/27/2025 5:26 AM EDT [facility] Basophils Absolute 0.01 [...] LAB BLOOD ORDERABLES Final Result [facility] [address] [place] [address] * (ABNORMAL) POCT glucose meter (06/27/2025 12:02 AM EDT) POCT Glucose 132(H) 74 - 99 mg/dL 06/27/2025 12:04 AM EDT [facility] Comment:Accuracy of a [...] Comment 06/27/2025 12:04 AM EDT [facility] Steamfitter ID Torrie Alston 12:04 AM EDT [facility] Device ID [id number] 06/27/2025 12:04 AM EDT [facility] Specimen Type POC Capillary 06/27/2025 12:04 AM EDT [facility] Blood Capillary blood specimen / Unknown 06/27/2025 12:02 AM EDT 06/27/2025 12:04 AM EDT us Chilo Morales MD LAB POINT OF CARE T EST DOCKED DEVICE UNSOLICITED RESULTS Final Result Performing Organization Address [facility] de Phone Number [facility] [address] [place] [address] * (ABNORMAL) POCT glucose meter (06/26/2025 8:51 PM EDT) Pathologist [facility] POCT Glucose 154(H) 74 - 99 mg/dL 06/26/2025 8:53 PM EDT [facility] Comment:Accuracy of [...] Comment 06/26/2025 8:53 PM EDT [facility] Steamfitter ID Torrie Alston 8:53 PM EDT [facility] Device ID [id number] 06/26/2025 8:53 PM EDT [facility] Specimen Type POC Capillary 06/26/2025 8:53 PM EDT [facility] Blood Capillary blood specimen / Unknown 06/26/2025 8:51 PM EDT 06/26/2025 8:53 PM EDT us Chilo Morales MD LAB POINT OF CARE T EST DOCKED DEVICE UNSOLICITED RESULTS Final Result Performing Organization Address City/[facility] Co de Phone Number [facility] [address] [place] [address] * (ABNORMAL) POCT glucose meter (06/26/2025 4:56 PM EDT) Pathologist [facility] POCT Glucose 253(H) 74 - 99 mg/dL [...] Comment 06/26/2025 4:58 PM EDT [facility] Steamfitter ID Evelio Munoz 06/26/2025 4:58 PM EDT [facility] Device ID [id number] 06/26/2025 4:58 PM EDT [facility] Specimen Type POC Capillary 06/26/2025 4:58 PM EDT [facility] Blood Capillary blood specimen / Unknown 06/26/2025 4:56 PM EDT 06/26/2025 4:58 PM EDT us Chilo Morales MD LAB POINT OF CARE T EST DOCKED DEVICE UNSOLICITED RESULTS Final Result Performing Organization Address City/[facility] Co de Phone Number [facility] [address] [place] [address] * (ABNORMAL) POCT glucose meter (06/26/2025 12:16 PM EDT) [facility] POCT Glucose 228(H) 74 - 99 [...] for testing. Comment 06/26/2025 12:18 PM EDT [facility] Steamfitter ID Evelio Munoz 06/26/2025 12:18 PM EDT [facility] Device ID [id number] 06/26/2025 12:18 PM EDT [facility] Specimen Type POC Capillary 06/26/2025 12:18 PM EDT [facility] Blood Capillary blood specimen / Unknown 06/26/2025 12:16 PM EDT 06/26/2025 12:18 PM EDT us Chilo Morales MD LAB POINT OF CARE T EST DOCKED DEVICE UNSOLICITED RESULTS Final Result [facility] [address] [place] [address] * (ABNORMAL) Cystatin C (06/26/2025 11:13 AM EDT) Cystatin C 3.12(H) 0.61 - 0.95 mg/L 06/26/2025 1:26 PM EDT [facility] Blood Venous blood specimen / Unknown Venipuncture / Unknown 06/26/2025 11:13 AM EDT 06/26/2025 11:30 AM EDT Chilo Morales MD LAB BLOOD ORDERABLES Final Result Performing Organization Address City/[facility]/ZIP Co de Phone Number [facility] [address] [place] [address] * Protein, Random, Urine with Creatinine (06/26/2025 10:40 AM EDT) Protein, Urine 56 mg/dL 06/26/2025 11:35 AM EDT [facility] Creatinine, Urine 181 mg/dL 06/26/2025 11:35 AM EDT [facility] Protein/Creati nine Ratio 0.3 mg/mg Creat 06/26/2025 11:35 AM EDT [facility] Urine Urine specimen obtained by clean catch procedure / Unknown Non-blood Collection / Unknown 06/26/2025 10:40 AM EDT 06/26/2025 11:03 AM EDT Chilo Morales MD LAB URINE ORDERABLES Final Result [facility] [address] [place] [address] * Urea nitrogen, urine (06/26/2025 10:40 AM EDT) Urea Nitrogen, Urine 938 mg/dL 06/26/2025 2:02 PM EDT [facility] Urine Urine specimen obtained by clean catch procedure / Unknown Non-blood Collection / Unknown 06/26/2025 10:40 AM EDT 06/26/2025 11:03 AM EDT us Chilo Morales MD LAB URINE ORDERABLES Final Result Performing Organization Address City/[facility]/ZIP Co de Phone Number [facility] [address] [place] [address] * (ABNORMAL) POCT glucose meter (06/26/2025 9:00 AM EDT) POCT Glucose 120(H) 74 - 99 mg/dL 06/26/2025 9:02 AM EDT [facility] Comment:Accuracy of a [...] for testing. Comment 06/26/2025 9:02 AM EDT [facility] Steamfitter ID Evelio Munoz 06/26/2025 9:02 AM EDT [facility] Device ID [id number] 06/26/2025 9:02 AM EDT [facility] Specimen Type POC Capillary 06/26/2025 9:02 AM EDT [facility] Blood Capillary blood specimen / Unknown 06/26/2025 9:00 AM EDT 06/26/2025 9:02 AM EDT us Chilo Morales MD LAB POINT OF CARE T EST DOCKED DEVICE UNSOLICITED RESULTS Final Result Performing Organization Address City/[facility] Co de Phone Number [facility] [address] [place] [address] * POCT glucose meter (06/26/2025 8:30 AM EDT) POCT Glucose 81 74 - 99 mg/dL [...] for testing. Comment 06/26/2025 8:31 AM EDT [facility] Steamfitter ID Evelio Munoz 06/26/2025 8:31 AM EDT [facility] Device ID [id number] 06/26/2025 8:31 AM EDT [facility] Specimen Type POC Capillary 06/26/2025 8:31 AM EDT [facility] Blood Capillary blood specimen / Unknown 06/26/2025 8:30 AM EDT 06/26/2025 8:31 AM EDT us Chilo Morales MD LAB POINT OF CARE T EST DOCKED DEVICE UNSOLICITED RESULTS Final Result Performing Organization Address City/[facility]/ZIP Co de Phone Number [facility] [address] [place] [address] * (ABNORMAL) Osmolality (06/26/2025 3:47 AM EDT) Pathologist [facility] Osmolality, Serum 307(H) 280 - 301 mOsm/Kg 06/26/2025 9:36 AM EDT [facility] Blood Venous blood specimen / Unknown Venipuncture / Unknown 06/26/2025 3:47 AM EDT 06/26/2025 4:09 AM EDT us Chilo Morales MD LAB BLOOD ORDERABLES Final Result Performing Organization Address City/[facility]/ZIP Co de Phone Number [facility] [address] [place] [address] * (ABNORMAL) Comprehensive metabolic panel (06/26/2025 3:47 AM EDT) Glucose, Plasma 117(H) 74 - 99 mg/dL 06/26/2025 4:51 AM EDT [facility] BUN, Plasma 35(H) 8 - 23 mg/dL 06/26/2025 4:51 AM EDT [facility] Creatinine, Plasma 2.32(H) 0.60 - 1.10 mg/dL 06/26/2025 4:51 AM EDT [facility] BUN/Creatinine Ratio 15 06/26/2025 4:51 AM EDT [facility] Sodium, Plasma 136 136 - 145 mmol/L 06/26/2025 4:51 AM EDT [facility] Potassium, Plasma 4.2 3.6 - 4.9 mmol/L 06/26/2025 4:51 AM EDT [facility] Chloride, Plasma 110(H) 97 - 107 mmol/L 06/26/2025 4:51 AM EDT [facility] CO2, Plasma 17(L) 22 - 29 mmol/L 06/26/2025 4:51 AM EDT [facility] Anion Gap 9 6 - 16 mmol/L 06/26/2025 4:51 AM EDT [facility] Total Calcium, Plasma 8.9 8.9 - 10.2 mg/dL 06/26/2025 4:51 AM EDT [facility] Total Protein 5.9(L) 6.3 - 7.9 g/dL 06/26/2025 4:51 AM EDT [facility] Albumin, Plasma 2.8(L) 3.5 - 5.2 g/dL 06/26/2025 4:51 AM EDT [facility] AST, Plasma 64(H) 10 - 35 U/L 06/26/2025 4:51 AM EDT [facility] ALT, Plasma 23 10 - 35 U/L 06/26/2025 4:51 AM EDT [facility] Alkaline Phosphatase, Plasma 189(H) 46 - 142 U/L 06/26/2025 4:51 AM EDT [facility] Total Bilirubin, Plasma 1.9(H) 0.2 - 1.1 mg/dL 06/26/2025 4:51 AM EDT [facility] eGFRcr 23.3 mL/min/1.7 3m*2 06/26/2025 4:51 AM EDT [facility] Comment:Reported eGFRcr in m L/min/1.73m2 is based the CKD-EPI 2020 equation that does not use a race coefficient. Blood Venous blood specimen / Unknown Venipuncture / Unknown 06/26/2025 3:47 AM EDT 06/26/2025 4:09 AM EDT us Chilo Morales MD LAB BLOOD ORDERABLES Final Result [facility] [address] [place] [address] * Phosphorus, Plasma (06/26/2025 3:47 AM EDT) Phosphorus, Plasma 3.4 2.5 - 4.5 mg/dL 06/26/2025 4:51 AM EDT [facility] Blood Venous blood specimen / Unknown Venipuncture / Unknown 06/26/2025 3:47 AM EDT 06/26/2025 4:09 AM EDT Chilo Morales MD LAB BLOOD ORDERABLES Final Result Performing Organization Address [facility] de Phone Number [facility] [address] [place] [address] * (ABNORMAL) Magnesium, Plasma (06/26/2025 3:47 AM EDT) Magnesium, Plasma 1.7(L) 1.9 - 2.4 mg/dL 06/26/2025 4:51 AM EDT [facility] Blood Venous blood specimen / Unknown Venipuncture / Unknown 06/26/2025 3:47 AM EDT 06/26/2025 4:09 AM EDT Chilo Morales MD LAB BLOOD ORDERABLES Final Result Performing Organization Address [facility] de Phone Number [facility] [address] [place] [address] * (ABNORMAL) CBC and Differential (06/26/2025 3:47 AM EDT) WBC Count 1.89(L) 3.70 - 10.30 10*3/uL LAB HEMATOLOGY METHOD 06/26/2025 4:54 AM EDT [facility] RBC Count 2.75(L) 3.90 - 5.20 10*6/uL LAB HEMATOLOGY METHOD 06/26/2025 4:54 AM EDT [facility] HGB 8.3(L) 11.2 - 15.7 g/dL LAB HEMATOLOGY METHOD 06/26/2025 4:54 AM EDT [facility] HCT 25.7(L) 34.0 - 45.0 % LAB HEMATOLOGY METHOD 06/26/2025 4:54 AM EDT [facility] Platelet Count 38(L) 155 - 369 10*3/uL LAB HEMATOLOGY METHOD 06/26/2025 4:54 AM EDT [facility] MCV 94 79 - 98 fL LAB HEMATOLOGY METHOD 06/26/2025 4:54 AM EDT [facility] MCH 30.2 26.0 - 32.0 pg LAB HEMATOLOGY METHOD 06/26/2025 4:54 AM EDT [facility] MCHC 32.3 30.7 - 35.5 g/dL LAB HEMATOLOGY METHOD 06/26/2025 4:54 AM EDT [facility] RDW 16.2(H) 11.5 - 14.5 % LAB HEMATOLOGY METHOD 06/26/2025 4:54 AM EDT [facility] MPV 12.5 8.8 - 12.5 fL LAB HEMATOLOGY METHOD 06/26/2025 4:54 AM EDT [facility] nRBC 0.0 <=0.0 per 100 WBCs LAB HEMATOLOGY METHOD 06/26/2025 4:54 AM EDT [facility] Differential Type Automated LAB HEMATOLOGY METHOD 06/26/2025 4:54 AM EDT [facility] Neutrophils % 39 % LAB HEMATOLOGY METHOD 06/26/2025 4:54 AM EDT [facility] Lymphocytes % 32 % LAB HEMATOLOGY METHOD 06/26/2025 4:54 AM EDT [facility] Monocytes % 23 % LAB HEMATOLOGY METHOD 06/26/2025 4:54 AM EDT [facility] Eosinophils % 4 % LAB HEMATOLOGY METHOD 06/26/2025 4:54 AM EDT [facility] Basophils % 1 % LAB HEMATOLOGY METHOD 06/26/2025 4:54 AM EDT [facility] Immature Granulocytes % 1 % LAB HEMATOLOGY METHOD 06/26/2025 4:54 AM EDT [facility] Neutrophils Absolute 0.75(LL) 1.60 - 6.10 10*3/uL LAB HEMATOLOGY METHOD 06/26/2025 4:54 AM EDT [facility] Lymphocytes Absolute 0.60(L) 1.20 - 3.90 10*3/uL LAB HEMATOLOGY METHOD 06/26/2025 4:54 AM EDT [facility] Monocytes Absolute 0.43 0.30 - 0.90 10*3/uL LAB HEMATOLOGY METHOD 06/26/2025 4:54 AM EDT [facility] Eosinophils Absolute 0.08 0.00 - 0.50 10*3/uL LAB HEMATOLOGY METHOD 06/26/2025 4:54 AM EDT [facility] Basophils Absolute 0.02 0.00 - 0.10 10*3/uL LAB HEMATOLOGY METHOD 06/26/2025 4:54 AM EDT [facility] Immature Granulocytes Absolute 0.01 0.00 - 0.06 10*3/uL LAB HEMATOLOGY METHOD 06/26/2025 4:54 AM EDT [facility] Blood Venous blood specimen / Unknown Venipuncture / Unknown 06/26/2025 3:47 AM EDT 06/26/2025 4:09 AM EDT Narrative [facility] - 06/26/2025 4:54 AM EDT Therapeutic decision making should be based on absolute values, rather than percentages. us Chilo Morales MD LAB BLOOD ORDERABLES Final Result Performing Organization Address City/[facility] Co de Phone Number [facility] [address] [place] [address] * (ABNORMAL) POCT glucose meter (06/25/2025 7:49 PM EDT) POCT Glucose 180(H) 74 - 99 mg/dL [...] for testing. Comment 06/25/2025 7:51 PM EDT [facility] Steamfitter ID Jeannie Espinoza Filipe 025 7:51 PM EDT [facility] Device ID [id number] 06/25/2025 7:51 PM EDT [facility] Specimen Type POC Capillary 06/25/2025 7:51 PM EDT [facility] Blood Capillary blood specimen / Unknown 06/25/2025 7:49 PM EDT 06/25/2025 7:51 PM EDT us Chilo Morales MD LAB POINT OF CARE T EST DOCKED DEVICE UNSOLICITED RESULTS Final Result Performing Organization Address City/[facility]/ZIP Co de Phone Number [facility] [address] [place] [address] * (ABNORMAL) POCT glucose meter (06/25/2025 6:18 PM EDT) POCT Glucose 175(H) 74 - 99 mg/dL [...] for testing. Comment 06/25/2025 6:19 PM EDT [facility] Steamfitter ID Nadia Salazar 6:19 PM EDT [facility] Device ID [id number] 06/25/2025 6:19 PM EDT [facility] Specimen Type POC Capillary 06/25/2025 6:19 PM EDT [facility] Blood Capillary blood specimen / Unknown 06/25/2025 6:18 PM EDT 06/25/2025 6:19 PM EDT Kadie Mauro MD LAB POINT OF CARE TE ST DOCKED DEVICE UNSOLICITED RESULTS Final Result [facility] [address] [place] [address] * XR Chest 1 View (06/25/2025 3:53 [...] LAB HEMATOLOGY METHOD 06/25/2025 4:38 PM EDT [facility] Elliptocytes/Ova locytes Present LAB HEMATOLOGY METHOD 06/25/2025 4:38 PM EDT [facility] RBC Morphology Slide Reviewed LAB HEMATOLOGY METHOD 06/25/2025 4:38 PM EDT [facility] Platelet Estimate Platelet smear estimate consistent with automated count LAB HEMATOLOGY METHOD 06/25/2025 4:38 PM EDT [facility] Blood Venous blood specimen / Unknown Venipuncture / Unknown 06/25/2025 3:00 PM EDT 06/25/2025 3:10 PM EDT us Raymundo Childers MD LAB BLOOD ORDERABLES Final Resul t [facility] [address] [place] [address] * (ABNORMAL) Manual Differential (06/25/2025 3:00 PM EDT) Blasts % 0 % LAB HEMATOLOGY METHOD 06/25/2025 4:38 PM EDT [facility] Promyelocytes % 0 % LAB HEMATOLOGY METHOD 06/25/2025 4:38 PM EDT [facility] Myelocytes % 0 % LAB HEMATOLOGY METHOD 06/25/2025 4:38 PM EDT [facility] Metamyelocytes % 0 % LAB HEMATOLOGY METHOD 06/25/2025 4:38 PM EDT [facility] Neutrophils % 69 % LAB HEMATOLOGY METHOD 06/25/2025 4:38 PM EDT [facility] Lymphocytes % 15 % LAB HEMATOLOGY METHOD 06/25/2025 4:38 PM EDT [facility] Reactive Lymphocytes % 0 % LAB HEMATOLOGY METHOD 06/25/2025 4:38 PM EDT [facility] Monocytes % 11 % LAB HEMATOLOGY METHOD 06/25/2025 4:38 PM EDT [facility] Eosinophils % 1 % LAB HEMATOLOGY METHOD 06/25/2025 4:38 PM EDT [facility] Basophils % 4 % LAB HEMATOLOGY METHOD 06/25/2025 4:38 PM EDT [facility] Blasts Absolute LAB HEMATOLOGY METHOD 06/25/2025 4:38 PM EDT [facility] Promyelocytes Absolute LAB HEMATOLOGY METHOD 06/25/2025 4:38 PM EDT [facility] Myelocytes Absolute LAB HEMATOLOGY METHOD 06/25/2025 4:38 PM EDT [facility] Metamyelocytes Absolute LAB HEMATOLOGY METHOD 06/25/2025 4:38 PM EDT [facility] Neutrophils Absolute 1.61 1.60 - 6.10 10*3/uL LAB HEMATOLOGY METHOD 06/25/2025 4:38 PM EDT [facility] Lymphocytes Absolute 0.35(L) 1.20 - 3.90 10*3/uL LAB HEMATOLOGY METHOD 06/25/2025 4:38 PM EDT [facility] Reactive Lymphocytes Absolute LAB HEMATOLOGY METHOD 06/25/2025 4:38 PM EDT [facility] Monocytes Absolute 0.26(L) 0.30 - 0.90 10*3/uL LAB HEMATOLOGY METHOD 06/25/2025 4:38 PM EDT [facility] Eosinophils Absolute 0.02 0.00 - 0.50 10*3/uL LAB HEMATOLOGY METHOD 06/25/2025 4:38 PM EDT [facility] Basophils Absolute 0.09 0.00 - 0.10 10*3/uL LAB HEMATOLOGY METHOD 06/25/2025 4:38 PM EDT [facility] Blood Venous blood specimen / Unknown Venipuncture / Unknown 06/25/2025 3:00 PM EDT 06/25/2025 3:10 PM EDT us Raymundo Childers MD LAB BLOOD ORDERABLES Final Resul t [facility] [address] [place] [address] * Phosphorus (06/25/2025 3:00 PM EDT) Phosphorus, Plasma 3.5 2.5 - 4.5 mg/dL 06/25/2025 3:36 PM EDT [facility] Blood Venous blood specimen / Unknown Venipuncture / Unknown 06/25/2025 3:00 PM EDT 06/25/2025 3:11 PM EDT us Raymundo Childers MD LAB BLOOD ORDERABLES Final Resul t Performing Organization Address [facility]/[place] [address] * (ABNORMAL) Magnesium (06/25/2025 3:00 PM EDT) Magnesium, Plasma 1.6(L) 1.9 - 2.4 mg/dL 06/25/2025 3:36 PM EDT [facility] Blood Venous blood specimen / Unknown Venipuncture / Unknown 06/25/2025 3:00 PM EDT 06/25/2025 3:11 PM EDT us Raymundo Childers MD LAB BLOOD ORDERABLES Final Resul t Performing Organization Address City/[facility]/ZIP Co de Phone Number [facility] [address] [place] [address] * (ABNORMAL) CMP (06/25/2025 3:00 PM EDT) Glucose, Plasma 242(H) 74 - 99 mg/dL 06/25/2025 3:36 PM EDT [facility] BUN, Plasma 37(H) 8 - 23 mg/dL 06/25/2025 3:36 PM EDT [facility] Creatinine, Plasma 2.50(H) 0.60 - 1.10 mg/dL 06/25/2025 3:36 PM EDT [facility] BUN/Creatinine Ratio 15 06/25/2025 3:36 PM EDT [facility] Sodium, Plasma 132(L) 136 - 145 mmol/L 06/25/2025 3:36 PM EDT [facility] Potassium, Plasma 4.3 3.6 - 4.9 mmol/L 06/25/2025 3:36 PM EDT [facility] Chloride, Plasma 104 97 - 107 mmol/L 06/25/2025 3:36 PM EDT [facility] CO2, Plasma 17(L) 22 - 29 mmol/L 06/25/2025 3:36 PM EDT [facility] Anion Gap 11 6 - 16 mmol/L 06/25/2025 3:36 PM EDT [facility] Total Calcium, Plasma 9.1 8.9 - 10.2 mg/dL 06/25/2025 3:36 PM EDT [facility] Total Protein 6.7 6.3 - 7.9 g/dL 06/25/2025 3:36 PM EDT [facility] Albumin, Plasma 3.0(L) 3.5 - 5.2 g/dL 06/25/2025 3:36 PM EDT [facility] AST, Plasma 76(H) 10 - 35 U/L 06/25/2025 3:36 PM EDT [facility] ALT, Plasma 29 10 - 35 U/L 06/25/2025 3:36 PM EDT [facility] Alkaline Phosphatase, Plasma 218(H) 46 - 142 U/L 06/25/2025 3:36 PM EDT [facility] Total Bilirubin, Plasma 2.1(H) 0.2 - 1.1 mg/dL 06/25/2025 3:36 PM EDT [facility] eGFRcr 21.3 mL/min/1.7 3m*2 06/25/2025 3:36 PM EDT [facility] Comment:Reported eGFRcr in m L/min/1.73m2 is based the CKD-EPI 2020 equation that does not use a race coefficient. Blood Venous blood specimen / Unknown Venipuncture / Unknown 06/25/2025 3:00 PM EDT 06/25/2025 3:11 PM EDT us Raymundo Childers MD LAB BLOOD ORDERABLES Final Resul t Performing Organization Address [facility] [place] [address] * (ABNORMAL) PT-INR (06/25/2025 3:00 PM EDT) Prothrombin Time 22.3(H) 12.0 - 14.3 sec 06/25/2025 3:32 PM EDT [facility] INR 2.0(H) 0.9 - 1.1 06/25/2025 3:32 PM EDT [facility] Blood Venous blood specimen / Unknown Venipuncture / Unknown 06/25/2025 3:00 PM EDT 06/25/2025 3:11 PM EDT Narrative [facility] - 06/25/2025 3:32 PM EDT [...] recurrent DE INR 2.5 to 3.5 us Raymundo Childers MD LAB BLOOD ORDERABLES Final Resul t Performing Organization Address City/[facility]/[place] [address] * (ABNORMAL) CBC w/diff (06/25/2025 3:00 PM EDT) WBC Count 2.33(L) 3.70 - 10.30 10*3/uL LAB HEMATOLOGY METHOD 06/25/2025 4:38 PM EDT [facility] RBC Count 2.99(L) 3.90 - 5.20 10*6/uL LAB HEMATOLOGY METHOD 06/25/2025 4:38 PM EDT [facility] HGB 9.3(L) 11.2 - 15.7 g/dL LAB HEMATOLOGY METHOD 06/25/2025 4:38 PM EDT [facility] HCT 28.0(L) 34.0 - 45.0 % LAB HEMATOLOGY METHOD 06/25/2025 4:38 PM EDT [facility] Platelet Count 39(L) 155 - 369 10*3/uL LAB HEMATOLOGY METHOD 06/25/2025 4:38 PM EDT [facility] MCV 94 79 - 98 fL LAB HEMATOLOGY METHOD 06/25/2025 4:38 PM EDT [facility] MCH 31.1 26.0 - 32.0 pg LAB HEMATOLOGY METHOD 06/25/2025 4:38 PM EDT [facility] MCHC 33.2 30.7 - 35.5 g/dL LAB HEMATOLOGY METHOD 06/25/2025 4:38 PM EDT [facility] RDW 16.2(H) 11.5 - 14.5 % LAB HEMATOLOGY METHOD 06/25/2025 4:38 PM EDT [facility] MPV 11.6 8.8 - 12.5 fL LAB HEMATOLOGY METHOD 06/25/2025 4:38 PM EDT [facility] nRBC 0.0 <=0.0 per 100 WBCs LAB HEMATOLOGY METHOD 06/25/2025 4:38 PM EDT [facility] Differential Type Manual LAB HEMATOLOGY METHOD 06/25/2025 4:38 PM EDT [facility] Blood Venous blood specimen / Unknown Venipuncture / Unknown 06/25/2025 3:00 PM EDT 06/25/2025 3:10 PM EDT Narrative [facility] - 06/25/2025 4:38 PM EDT [...] ORDERABLES Final Resul t Performing Organization Address City/[facility]/ZIP Co de Phone Number [facility] [address] [place] [address] * ECG Adult (06/25/2025 2:48 PM EDT) EKG DIAGNOSIS CLASS Abnormal MUSE ECG Ventricular Rate 61 BPM MUSE ECG QRSD Interval 86 ms MUSE ECG QT Interval 448 ms MUSE ECG QTC Interval 450 ms MUSE ECG R [place] -25 degrees MUSE ECG T Wave [place] 25 degrees MUSE ECG Diagnosis Poor data [...] Raymundo Childers MD ECG ORDERABLES Final Result MUSE ECG * (ABNORMAL) POCT glucose meter (06/25/2025 2:27 PM EDT) Pathologist [facility] POCT Glucose 245(H) 74 - 99 mg/dL 06/25/2025 2:29 PM EDT [facility] Comment:Accuracy of a glucos e result [...] for testing. Comment 06/25/2025 2:29 PM EDT [facility] Steamfitter ID Hanane [place] 2:29 PM EDT [facility] Device ID [id number] 06/25/2025 2:29 PM EDT [facility] Specimen Type POC Capillary 06/25/2025 2:29 PM EDT [facility] Blood Capillary blood specimen / Unknown 06/25/2025 2:27 PM EDT 06/25/2025 2:29 PM EDT us Generic Provider Poct LAB POINT OF CARE TEST DOCKED DEVICE UNSOLICITED RESULTS Final Result Performing Organization Address City/State/[facility] Co de Phone Number [facility] [address] [place] [phone] documented in this encounter Visit Diagnoses Diagnosis Cirrhosis of liver with ascites- Primary CARLOTTA (acute kidney injury) Acute kidney injury superimposed on stage 3b chronic kidney disease Chronic kidney disease, stage 3b (CMS/HCC) Cirrhosis of liver with ascites, unspecified hepatic cirrhosis type Hx of spontaneous bacterial peritonitis Physical debility Pancytopenia Self-care deficit Pleural effusion Unspecified pleural effusion Shortness of breath Other ascites Alcoholic cirrhosis of liver with ascites Acute kidney injury superimposed on stage 3b chronic kidney disease Chronic obstructive pulmonary disease Chronic kidney disease, stage 3b (CMS/HCC) Coronary artery disease of [place] artery of [place] heart with stable angina pectoris Diabetic peripheral neuropathy Type II or unspecified type diabetes mellitus with neurological manifestations, not stated as uncontrolled Dysphagia Obesity (BMI 30.0-34.9) JONATHAN treated with BiPAP Hyperlipidemia Other and unspecified hyperlipidemia Type 2 diabetes mellitus, with long-term current use of insulin Hx of spontaneous bacterial peritonitis Physical debility Pleural effusion associated with hepatic disorder Other specified forms of effusion, except tuberculous LLQ abdominal pain Abdominal pain, left lower quadrant Self-care deficit CARLOTTA (acute kidney injury) Heartburn Neutropenia Pancytopenia Hypomagnesemia Disorders of magnesium metabolism Serum ammonia increased (CMS/HCC) 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 Lupus (systemic lupus erythematosus) (CMS/HCC) Systemic lupus erythematosus Vasovagal syncope Syncope and collapse documented in this encounter Admitting Diagnoses Diagnosis CARLOTTA (acute kidney injury) documented in this encounter Administered Medications Inactive [...] 15 min PRN, 5 doses, Starting on Tue06/27/25 at 1007, Until Tue07/09/25 at 1519, Routine, Give additional 12.5 g doses per albumin replacement chart albumin human 25 % infusion 12.5 g 12.5 g, Intravenous, Every 15 min PRN, 5 doses, Starting on Tue07/04/25 at 1051, Until Tue07/09/25 at 1519, Routine, [...] 10 mL, Infiltration, Once, 1 dose, On Tue07/04/25 at 0945, Routine, Holding - Preprocedure Given [...] 2 g, Intravenous, Once, 1 dose, On 06/30/25 at 1215, Routine New Bag 06/30/2025 12:12 PM EDT 2 g 2 5 mL/hr magnesium sulfate IVPB 2 g 2 g, Intravenous, Once, 1 dose, On 07/06/25 at 0600, Routine New Bag 07/06/2025 6:03 [...] Routine 0845 (Given - Provider: Mariam Gonzalez RN)2114 (Given - Provider: Felecia Khanna) 0907 (Given - Provider: Mariam Gonzalez RN)2025 (Given [...] Xiong LPN - Reason: Order parameters not met)2134 (Not Given - Provider: Felecia Khanna - Reason: See Provider Order) 0308 (Not Given - Provider: Felecia Khanna - Reason: See Provider Order)2040 (Not Given - Provider: Felecia Khanna - Reason: See Provider Order) 0256 (Not Given - Provider: Felecia Khanna [...] Routine 0846 (Given - Provider: Mariam Gonzalez RN)171 (Given - Provider: Mariam Gonzalez RN)2106 (Given [...] RN)2106 (Medication Applied - Provider: Felecia Khanna) 09 (Medication Removed - Provider: Mariam Gonzalez RN)2210 (Medication Applied - Provider: Felecia Khanna) 0915 (Medication Removed - Provider: Mariam Gonzalez RN) magnesium oxide (Mag-Ox) tablet 400 mg 400 mg, Oral, Daily, First dose on Tue06/25/25 at 2100, Until Discontinued, Routine 210 (Given - Provider: Felecia Khanna) 2024 (Given [...] Khanna) 0907 (Given - Provider: Mariam Gonzalez RN)155 (Given - Provider: Mariam Gonzalez RN)2024 (Given [...] Khanna) 0908 (Given - Provider: Mariam Gonzalez RN)2024 (Given [...] Provider: Mariam Gonzalez RN)2108 (Given - Provider: Felecia Khanna) 0908 (Given - Provider: Mariam Gonzalez RN)2026 (Given [...] Preprocedure 0919 (Given - Provider: Mariam Gonzalez RN)2107 (Given - Provider: Felecia Khanna) 0909 (Given - Provider: Mariam Gonzalez RN)220 (Given - Provider: Felecia Khanna) 0859 (Given - Provider: Mariam Gonzalez RN) PRN Medication Order 07/07/2025 07/08/2025 07/09/2025 albumin human 25 % infusion 12.5 g 12.5 g, Intravenous, Every 15 min PRN, 5 doses, Starting on Tue06/27/25 at 1007, Until Tue07/09/25 at 1519, Routine, Give additional 12.5 g doses per albumin replacement chart albumin human 25 % infusion 12.5 g 12.5 g, Intravenous, Every 15 min PRN, 5 doses, Starting on Tue07/04/25 at 1051, Until Tue07/09/25 at 1519, Routine, Give additional 12.5 g doses per albumin replacement chart benzonatate (Tessalon) capsule 100 mg 100 mg, Oral, 3 times daily PRN, Starting on Tue06/30/25 at 1823, Until Tue07/09/25 at 1519, Routine, cough bisacodyl (Dulcolax) suppository 10 mg 10 mg, Rectal, Daily PRN, Starting on Tue07/03/25 at 1957, Until Tue07/09/25 at 1519, Routine, constipation capsaicin (Zostrix) 0.025 % cream [...] on Tue07/08/25 at 1659, Until Tue07/09/25 at 151, Routine, sleep 2024 (Given - Provider: Felecia Khanna) prochlorperazine (Compazine) tablet 5 mg 5 mg, Oral, Every 6 hours PRN, Starting on Tue07/03/25 at 1324, Until Tue07/09/25 at 1519, Routine, nausea, vomiting sodium chloride 0.9 % [...] 10 mL, Intravenous, As needed, Starting on Sarahi 07/04/25 at 0850, Until Tue07/09/25 at 1519, Routine, Holding - Preprocedure, line care Linked Groups Order Group 1: Insert peripheral IV (COMPLETED) Once, On Tue06/25/25 at 1931, For 1 occurrence And Saline lock IV (COMPLETED) Once, On Tue06/25/25 at 1931, For 1 occurrence And sodium chloride 0.9 [...] Tue06/25/25 at 2136, Until Tue07/09/25 at 151, Administer over 15 Minutes, Routine, low blood sugar BG 51-89 mg/dL Or dextrose 10 % (D10W) bolus 250 mLJump to med 250 mL, Intravenous, Every 15 min PRN, Starting on Tue06/25/25 at 2136, Until Tue07/09/25 at 151, Administer over 15 Minutes, Routine, PRN low blood sugar BG =/<50 mg/dL Or glucagon (human recombinant) injection 1 mgJump to med 1 mg, Intramuscular, Every 15 min PRN, Starting on Tue06/25/25 at 213, Until Tue07/09/25 at 1519, Routine, low blood [...] documented as of this encounter Care Teams Meter Calibrator Relationship Specialty Start Date End Date Alvarez Ordaz MD [address] [place] [address] PCP - General Family Medicine 12/07/24 Lea Fernando [address] [facility] [address] [place] [address] Charge Accounts Audit Clerk Endocrinology 08/29/24 Rachel Ray APRN [address] [facility] [address] [place] [address] Nurse Practitioner Gastroenterology 09/24/24 Tamera Isabel LPN VALUE-BASED TRANSFORMATION PROGRAM Licensed Practical Nurse 05/29/25 Alina Lovett, RN [facility]-VASCULAR & INTERVENTIONAL RADIOLOGY Registered Nurse 06/26/25 06/26/25 documented as of this encounter
--- OUTSIDE RECORDS SUMMARY | 2025-07-11 09:01 | XMS_ITS | Encounter Summary ---
Author Organization [facility] Address [address] [place] [address] Care Team Providers Care Cryptological Technician Name Role Phone Lea Fernando Unavailable [phone] Rachel Ray APRN Unavailable [phone] Alvarez Zimmer MD Primary Care Provider [phone] Tamera Isabel LAN ENGINEER Unavailable Unavailabl Monique Garay LAN ENGINEER Unavailable Unavailable Reason for Referral * Clinic-Administered Medication (Routine) - Closed Specialty Diagnoses / Procedures Referred By Eder t Referred To Contact Diagnoses Other ascites Procedures [place] ABDOM PARACENTESIS DX/THER W IMAGING GUIDANCE Micheal Glasgow APRN, DNP [address] [place] [address] Phone: tel: fax: [facility] [address] [place] [address] Phone: tel: fax: Referral ID Status Reason Start Date Expiration Date Visits Re quested Visits Authorized [id number] Closed 07/11/2025 01/10/2027 1 1 * Imaging (Routine) - Closed Specialty Diagnoses / Procedures Referred By Contherbert t Referred To Contact Radiology Diagnoses Shortness of breath Pleural effusion Procedures US Guided Thoracentesis Marianna Gordon APRN [address] [place] [address] Phone: tel: fax: Referral ID Status Reason Start Date Expiration Date Visits Re quested Visits Authorized [id number] Closed 06/14/2025 12/14/2026 1 1 Reason for Visit * Imaging (Routine) - Closed Specialty Diagnoses / Procedures Referred By Eder zhu Referred To Contact Radiology Diagnoses Shortness of breath Pleural effusion Procedures US Guided Thoracentesis Marianna Gordon APRN [address] [place] [address] Phone: tel: fax: Referral ID Status Reason Start Date Expiration Date Visits Re quested Visits Authorized [id number] Closed 06/14/2025 12/14/2026 1 1 Encounter Details Date Type Department Care Team (Latest Contact Info) Description 07/11/2025 9:01 AM EDT - 07/11/2025 12:09 PM EDT Hospital Encounter [facility] Interventional Radiology [address] [place] [address] Stacy Houston RN EMERGENCY SERVICES Shortness of [...] do you attend [facility] or orthodoxy services? Patient unable to answer [...] you attend chur ch or orthodoxy services? Never 05/29/2025 Do you [...] more drinks on one occasion? Never 06/25/2025 [facility] - Occupational Stress [...] any time in the past 12 m [facility], were you homeless or living in a detention (including now)? No 06/26/2025 CAGE ASSESSMENT Answer [...] drink first t kennedy in the morning (EYE-CAST IRON DIPPER) to steady your nerves or to get rid of a hangover? 0 06/25/2025 CAGE Questionnaire Score 0 025 Utilities Answer Date Recorded In the past 12 months has [employer], gas, oil, or water [employer] threatened to shut off services in your [...] call: Vascular & Interventional Radiology Clinic at [phone] Tuesday - Tuesday 8:00 AM to 4:30 PM After hours, weekends, and holidays please call [phone] and ask for the Interventional Radiology provider/Resident on-call For Emergencies please go to the nearest Emergency Room or dial 911. Intervention Radiology Appointments: If you need to reschedule a procedure, please call our Schedulers at [phone], option 4. If you need to schedule or reschedule a clinic appointment, please call [phone]. [facility] Vascular and Interventional Radiology Clinic [facility] [address] [facility] [place] [address] documented in this encounter Medications at Time [...] 1 03/01/2025 ergocalciferol (Vitamin D-2) 1.25 MG (73551 UT) capsuleIndication s:Vitamin D deficiency Take 1 capsule by mouth 1 time per week. 4 capsule 06/27/2025 6 hydrOXYzine HCl (Atarax) 25 MG tablet Take [...] or as directed by . 07/09/2025 5 documented as of this encounter Miscellaneous Notes * Stacy Garcia RN - 07/11/2025 12:44 PM EDT Images from the original note were not included. [id number] Discharge Instructions for Paracentesis Paracentesis is a [...] fainting. Last Reviewed Date: 2025 00:00:00 ?? 5259-4529 [employer]. All rights reserved. This information is not intended as a substitute for professional medical care. Always follow your healthcare professional's instructions. * John ZendejasTHEO - Stacy Houston RN - 07/11/2025 12:44 PM EDT Images from the original note were not included. [address]32 Discharge Instructions for Thoracentesis Thoracentesis is a [...] blood. Last Reviewed Date: 2025 00:00:00 ?? [id number] [employer]. All rights reserved. This information is not [...] condition. * Interval H&P Note - Micheal Glasogw APRN, DNP - 07/11/2025 10:15 AM EDT [...] - Any questions with scheduling please call [phone] - Please place orders for desired fluid studies to be sent for analysis prior to procedure Thank you for allowing us to participate in the care of this patient. Micheal Glasgow APRN, DNP Interventional Radiology [phone] [1] Past Medical History: Diagnosis Date ADHD (attention deficit hyperactivity disorder) Allergic Anxiety disorder, unspecified Anxiety Bleeding gums Blood in urine Cataract Chronic kidney disease Cirrhosis (CMS/HCC) Colon cancer screening 09/20/2019 Added automatically from request for surgery [id number] Coronary artery disease Depression 1995 Diabetes mellitus [...] 1979 BLADDER SURGERY N/A Bladder surgery from [facility] BREAST BIOPSY 2011 BREAST SURGERY 2010 BUNIONECTOMY Right CATARACT EXTRACTION Bilateral 2016 CHOLECYSTECTOMY 1979 ESOPHAGOGASTRODUODENOSCOPY HYSTERECTOMY N/A Hysterectomy from [facility] KNEE SURGERY Bilateral ORAL SURGERY N/A Oral [...] g, Intravenous, q15 min PRN, Marianna Gordon, THIRD COOK albumin human 25 % infusion 87.5 g, [...] 750 mg, 750 mg, Oral, Daily, Blayne Zimmer, , 750 mg at07/03/25 0935 capsaicin (Zostrix) 0.025 % cream, , Topical, BID PRN, Blayne Zimmer, cetirizine (ZyrTEC) tablet 10 mg, 10 mg, Oral, Daily, Blayne Zimmer, , 10 mg at 07/03/25 0935 cholecalciferol (Vitamin D-3) tablet 1,000 Units, 1,000 Units, Oral, Daily, Blayne Zimmer, , 1,000 Units at 07/03/25 0935 ciprofloxacin [...] 20 g, 20 g, Oral, TID, Blayne Zimmer, , 20 g at 07/03/25 0934 magnesium oxide [...] flush 10 mL, 10 mL, Intravenous, PRN, Ontiveros, Palak, ADRI, DNP documented in this encounter Plan of Treatment Upcoming Encounters Date Type Department Care Team (Late st Contact Info) Description 08/20/2025 9:30 AM EDT Clinical Support [facility] [place] [address] [facility] [address] [place] [address] 08/20/2025 10:30 AM EDT Social Work [facility] [place] [address] [facility] [address] [place] [address] Deysi Ortega [place], [place] [id number] 08/20/2025 11:00 AM EDT Office Visit [facility] [place] [address] [facility] [address] [place] [address] Jude Duque MD [address] [facility] [address] [place] [address] 08/22/2025 11:15 AM EDT Appointment [facility] Interventional Radiology [address] [place] [address] 08/22/2025 12:15 PM EDT Appointment [facility] Interventional Radiology [address] [place] [address] 08/26/2025 1:00 PM EDT Office Visit [facility] Endocrinology [address] [place] [phone] Miranda Hobson, THIRD COOK [address] [place] [address] 08/29/2025 10:00 AM EDT Appointment [facility] Interventional Radiology [address] [place] [address] 08/29/2025 11:00 AM EDT Appointment [facility] Interventional Radiology [address] [place] [address] 09/05/2025 10:00 AM EDT Appointment [facility] Interventional Radiology [address] [place] [address] 09/05/2025 11:00 AM EDT Appointment [facility] Interventional Radiology [address] [place] [address] documented as of this encounter Procedures Procedure [...] written report. Preliminary report signed by SOLANGE oTure on 07/11/2025 1:09 PM By electronically signing [...] by ascites and intermittent hepatic hydrothorax TECHNIQUE: Head Operator: ADRI Glasgow Procedure: Limited abdominal ultrasound COMPARISON: [...] complicated by ascites and intermittenthepatic hydrothorax TECHNIQUE: Head Operator: THIRD COOK Micheal Glasgow Procedure: Limited abdominal ultrasound COMPARISON: None. [...] on 07/11/2025 4:21 PM us Marianna N Cheeks THIRD COOK IMG US PROCEDURES Final Resu lt * [...] by ascites and intermittent hepatic hydrothorax TECHNIQUE: Head Operator: ADRI Glasgow Secondary Occ Therapy Asst: None. Rad Dose: NA Medications: Continuous physiologic [...] complicated by ascites and intermittenthepatic hydrothorax TECHNIQUE: Head Operator: ADRI Glasgow Secondary Occ Therapy Asst: None. Rad Dose: NA Medications: Continuous physiologic [...] Rose MD on 07/11/2025 4:04 PM us Marianna N Gabrieladeloress THIRD COOK IMG US PROCEDURES Final Resu lt documented [...] documented as of this encounter Care Teams Cryptological Technician Relationship Specialty Start Date End Date Alvarez Zimmer MD [address] [place] [address] PCP - General Family Medicine 12/07/24 Lea Fernando [address] [place] [address] Concrete Pouring Supervisor Endocrinology 08/29/24 Rachel Ray APRN [address] [place] [address] Nurse Practitioner Gastroenterology 09/24/24 Tamera Isabel LPN VALUE-BASED TRANSFORMATION PROGRAM Licensed Practical Nurse 05/29/25 Monique Tapia LPN VALUE-BASED [place] [address] TCM Nurse 07/10/25 08/09/25 documented as of this encounter
--- OUTSIDE RECORDS SUMMARY | 2025-07-11 12:10 | XMS_ITS | Encounter Summary ---
Author Organization [facility] Address [address] [place] [address] Care Team Providers Care Choir Teacher Name Role Phone Lea Fernando Unavailable [phone] Rachel Ray PROGRAM ADVISOR Unavailable [phone] Alvarez Zimmer MD Primary Care Provider Tamera Isabel SIDE LASTER TACK Unavailable Unavailabl Monique Garay SIDE LASTER TACK Unavailable Unavailable Encounter Details Date Type Department Care Team (Latest Contact Info) Description 07/11/2025 12:10 PM EDT - 07/11/2025 11:59 PM EDT Hospital Encounter [facility] H Radiology [address] [place] [address] Discharge Disposition: Home or Self Care Social [...] How often do you attend [facility] or congregation services? Patient unable to answer 01/10/2025 Do you belong to any clubs o r organizations such as synagogue groups, unions, [employer] or athletic groups, or school groups? Patient [...] you attend chur ch or congregation services? Never 05/29/2025 Do you [...] more drinks on one occasion? Never 06/25/2025 [facility] - Occupational Stress Questionnaire Answer Date [...] in a skilled nursing (including now)? No 06/26/2025 CAGE ASSESSMENT Answer [...] drink first t kennedy in the morning (EYE-EMERGENCY ROOM NURSE) to steady your nerves or to get rid of a hangover? 0 06/25/2025 CAGE Questionnaire Score 0 025 Utilities Answer Date Recorded In the past 12 months has th e [employer], gas, oil, or water [employer] threatened to shut off services in your [...] 1 03/01/2025 ergocalciferol (Vitamin D-2) 1.25 MG (67443 UT) capsuleIndication s:Vitamin D deficiency Take 1 [...] . 07/09/2025 documented as of this encounter Plan of Treatment Upcoming Encounters Date Type Department Care Team (Late st Contact Info) Description 08/20/2025 9:30 AM EDT Clinical Support [facility] [place] [address] [place] [address] 08/20/2025 10:30 AM EDT Social Work [facility] [place] [address] [place] [address] [place] [address] 08/20/2025 11:00 AM EDT Office Visit [facility] [place] [address] [place] [address] Jude Duque MD [address] [place] [address] 08/22/2025 11:15 AM EDT Appointment [facility] Interventional Radiology [address] [place] [address] 08/22/2025 12:15 PM EDT Appointment [facility] Interventional Radiology [address] [place] [address] 08/26/2025 1:00 PM EDT Office Visit [facility] Endocrinology [address] [place] [address] Mrianda Hobson, PROGRAM ADVISOR [address] [facility] [address] [place] [address] 08/29/2025 10:00 AM EDT Appointment [facility] Interventional Radiology [address] [place] [address] 08/29/2025 11:00 AM EDT Appointment [facility] Interventional Radiology [address] [place] [address] 09/05/2025 10:00 AM EDT Appointment [facility] Interventional Radiology [address] [place] [address] 09/05/2025 11:00 AM EDT Appointment [facility] Interventional Radiology [address] [place] [address] documented as of this encounter Procedures Procedure [...] 07/11/2025 12:36 PM us Micheal E Pee PROGRAM ADVISOR, DNP IMG XR PROCEDURES Tari l Result [...] documented as of this encounter Care Teams Choir Teacher Relationship Specialty Start Date End Date Alvarez Zimmer MD [address] [place] [address] PCP - General Family Medicine 12/07/24 Lea Fernando [address] [facility] [address] [place] [address] Archives Specialist Endocrinology 08/29/24 Rachel Ray, PROGRAM ADVISOR [address] [facility] [address] [place] [address] Nurse Practitioner Gastroenterology 09/24/24 Tamera Isabel LPN VALUE-BASED TRANSFORMATION PROGRAM Licensed Practical Nurse 05/29/25 Monique Tapia LPN VALUE-BASED [place] [address] TCM Nurse 07/10/25 08/09/25 documented as of this encounter
--- OUTSIDE RECORDS SUMMARY | 2025-07-18 09:08 | XMS_ITS | Encounter Summary ---
Author Organization [facility] Address [address] [place] [address] Care Team Providers Care Personnel Monitor Name Role Phone Lea Fernando Unavailable [phone] Rachel Ray BACK FILLER OPERATOR Unavailable [phone] Alvarez Zimmer MD Primary Care Provider Tamera Isabel RN NICU Unavailable Unavailabl Monique Garay RN NICU Unavailable Unavailable Reason for Referral * Clinic-Administered Medication (Routine) - Closed Specialty Diagnoses / Procedures Referred By Contac t Referred To Contact Diagnoses Other ascites Procedures MT ALBUMIN (HUMAN), 25%, 50ML Shaniqua Mccurdy APRN [address] [place] [address] Phone: tel: fax: Referral ID Status Reason Start Date Expiration Date Visits Re quested Visits Authorized [id number] Closed 07/18/2025 01/17/2027 1 1 * Imaging (Routine) - Closed Specialty Diagnoses / Procedures Referred By Contac t Referred To Contact Radiology Diagnoses Other ascites Procedures US Guided Abdominal Paracentesis Marianna Gordon APRN [address] [place] [address] Phone: tel: fax: Referral ID Status Reason Start Date Expiration Date Visits Re quested Visits Authorized [id number] Closed 06/14/2025 12/14/2026 1 1 * Imaging (Routine) - Closed Specialty Diagnoses / Procedures Referred By Contac t Referred To Contact Radiology Diagnoses Shortness of breath Pleural effusion Procedures US Guided Thoracentesis Marianna Gordon APRN [address] [place] [address] Phone: tel: fax: Referral ID Status Reason Start Date Expiration Date Visits Re quested Visits Authorized [id number] Closed 06/14/2025 12/14/2026 1 1 Reason for Visit * Imaging (Routine) - Closed Specialty Diagnoses / Procedures Referred By Contac t Referred To Contact Radiology Diagnoses Shortness of breath Pleural effusion Procedures US Guided Thoracentesis Marianna Gordon APRN [address] [place] [address] Phone: tel: fax: Referral ID Status Reason Start Date Expiration Date Visits Re quested Visits Authorized [id number] Closed 06/14/2025 12/14/2026 1 1 Encounter Details Date Type Department Care Team (Latest Contact Info) Description 07/18/2025 9:08 AM EDT - 07/18/2025 12:07 PM EDT Hospital Encounter [facility] Interventional Radiology [address] [place] [address] Stu Samayoa Shortness of breath; Pleural effusion; [...] week 01/10/2025 How often do you attend [facility] ch or christianity services? Patient unable to [...] week 05/29/2025 How often do you attend [facility] ch or christianity services? Never 05/29/2025 Do you belong to [...] first t kennedy in the morning (EYE-CLINICAL NURSE MANAGER) to steady your nerves or to get rid of a hangover? 0 06/25/2025 CAGE Questionnaire Score 0 025 Utilities Answer Date Recorded In the past 12 months has th [employer], gas, oil, or water company threatened to [...] call: [facility] Inter[facility]iology Clinic at [phone] Tuesday - Tuesday 8:00 AM to 4:30 PM After hours, weekends, and holidays please call [phone] and ask for the Interventional Radiology provider/Resident on-call Intervention Radiology Appointments: If you need to reschedule a procedure, please call our Schedulers at [phone], option [phone]. If you need to schedule or reschedule a clinic appointment, please call [phone]. [facility] [address] [place] [address] documented in this encounter Medications at Time [...] 1 03/01/2025 ergocalciferol (Vitamin D-2) 1.25 MG (87049 UT) capsuleIndication s:Vitamin D deficiency Take 1 [...] - Any questions with scheduling please call [phone] - Please place orders for desired fluid studies to be sent for analysis prior to procedure Thank you for allowing us to participate in the care of this patient. Micheal Glasgow, BACK FILLER OPERATOR, DNP Interventional Radiology [phone] [1] Past Medical History: Diagnosis Date ADHD (attention deficit hyperactivity disorder) Allergic Anxiety disorder, unspecified Anxiety Bleeding gums Blood in urine Cataract Chronic kidney disease Cirrhosis (CMS/HCC) Colon cancer screening 09/20/2019 Added automatically from request for surgery [id number] Coronary artery disease Depression 1995 Diabetes mellitus [...] 1979 BLADDER SURGERY N/A Bladder surgery from [facility] BREAST BIOPSY 2011 BREAST SURGERY 2010 BUNIONECTOMY Right CATARACT EXTRACTION Bilateral 2016 CHOLECYSTECTOMY 1980 ESOPHAGOGASTRODUODENOSCOPY HYSTERECTOMY N/A Hysterectomy from [facility] KNEE SURGERY Bilateral ORAL SURGERY N/A Oral surgery from [facility] OTHER SURGICAL HISTORY 2015 ROOT CANAL WISDOM TOOTH EXTRACTION [3] Social History Tobacco Use Smoking status: Never Passive exposure: Never Smokeless tobacco: Never Vaping Use Vaping status: Never Used Substance Use Topics Alcohol use: Not Currently Drug use: Never [4] No Known Allergies [5] Current Facility-Administered Medications: albumin human 25 % infusion 12.5 g, 12.5 g, Intravenous, q15 min PRN, Marianna Gordon, BACK FILLER OPERATOR albumin human 25 % infusion 87.5 g, [...] Description 08/20/2025 9:30 AM EDT Clinical Support [facility] [address] [facility] [address] [place] [address] 08/20/2025 10:30 AM EDT Social Work [facility] [address] [facility] [place] [address] [place] [address] 08/20/2025 11:00 AM EDT Office Visit [facility] [address] [facility] [address] [place] [address] Jude Duque MD [address] [facility] [address] [place] [address] 08/22/2025 11:15 AM EDT Appointment [facility] Inter[facility] Radiology [address] [place] [address] 08/22/2025 12:15 PM EDT Appointment [facility] Inter[facility] Radiology [address] [place] [address] 08/26/2025 1:00 PM EDT Office Visit Merissa Valencia [facility] Endocrinology [address] [place] [address] Miranda Hobson APRN [address] [facility] [address] [place] [address] 08/29/2025 10:00 AM EDT Appointment [facility] Inter[facility] Radiology [address] [place] [address] 08/29/2025 11:00 AM EDT Appointment [facility] Inter[facility]iology [address] [place] [address] 09/05/2025 10:00 AM EDT Appointment [facility]iology [address] [place] [address] 09/05/2025 11:00 AM EDT Appointment [facility] Inter[facility] Radiology [address] [place] [address] documented as of this encounter Procedures Procedure [...] 07/18/2025 12:55 PM Final report signed by Brai Aguillon MD on 07/18/2025 12:56 PM Narrative [...] complicated by ascites and hepatic hydrothorax. TECHNIQUE: Religious Educator: Shaniqua Mccurdy APRN Secondary Broom Handle Dipper: None. Rad Dose: NA Medications: Continuous physiologic [...] cirrhosis complicated by ascites andhepatic hydrothorax. TECHNIQUE: Religious Educator: Shaniqua Mccurdy APRN Secondary Broom Handle Dipper: None. Rad Dose: NA Medications: Continuous physiologic [...] on 07/18/2025 2:18 PM us Marianna Gordon BACK FILLER OPERATOR IMG US PROCEDURES Final Resu lt [...] by ascites and recurrent hepatic hydrothorax. TECHNIQUE: Religious Educator: Shaniqua Mccurdy APRN Secondary Broom Handle Dipper: None. Rad Dose: NA Medications: Continuous physiologic [...] complicated by ascites andrecurrent hepatic hydrothorax. TECHNIQUE: Religious Educator: Shaniqua Mccurdy APRN Secondary Broom Handle Dipper: None. Rad Dose: NA Medications: Continuous physiologic [...] on 07/18/2025 2:18 PM us Marianna Gordon BACK FILLER OPERATOR IMG US PROCEDURES Final Resu lt * Body fluid, cytospin, pathologist interpretation (07/18/2025 10:23 AM EDT) Specimen Type Body Fluid LAB HEMATOLOGY METHOD 07/19/2025 12:51 PM EDT [facility] Specimen Source, Body Fluid Peritoneal Fluid LAB HEMATOLOGY METHOD 07/19/2025 12:51 PM EDT [facility] Clinical Diagnosis, Body Fluid Ascites LAB HEMATOLOGY METHOD 07/19/2025 12:51 PM EDT [facility] Interpretation , Body Fluid No evidence of malignancy Predominantly chronic inflammatory cells Light blood A resident was involved in the service. I attest I examined the relevant preparations for the specimens and confirmed the diagnosis or interpretation. 07/19/2025 12:51 PM EDT [facility] Pathologist Signature, Body Fluid 07/19/2025 12:51 PM EDT [facility] Comment:Reviewed by: Kadie dobbs MD LAB CP ASR DISCLAIMER Yes 07/19/2025 12:51 PM EDT [facility] Body Fluid Peritoneal fluid / Unknown Non-blood Collection / Unknown 07/18/2025 10:23 AM EDT 07/18/2025 12:01 PM EDT us Shaniqua Mccurdy APRN LAB BODY FLUIDS AND STOOLS O RDERABLES Final Result Performing Organization Address [facility]/ZIP Co de Phone Number [facility] [address] [place] [address] * Glucose - Ascites (07/18/2025 10:23 AM EDT) Glucose, Fluid 197 mg/dL 07/18/2025 1:43 PM EDT [facility] Peritoneal Fluid Peritoneal cavity structure / Unknown Non-blood Collection / Unknown 07/18/2025 10:23 AM EDT 07/18/2025 12:01 PM EDT Narrative [facility] - 07/18/2025 1:43 PM EDT [...] Result Performing Organization Address City/[facility]/ZIP Co de Phone Number [facility] [address] [place] [address] * Protein - Ascites (07/18/2025 10:23 AM EDT) Total Protein, Fluid 1.3 g/dL 07/18/2025 1:43 PM EDT [facility] Peritoneal Fluid Peritoneal cavity structure / Unknown Non-blood Collection / Unknown 07/18/2025 10:23 AM EDT 07/18/2025 12:01 PM EDT Narrative [facility] - 07/18/2025 1:43 PM EDT This test was developed and its performance characteristics determined by [facility]. The U.S. Food and Drug Administration has not approved or cleared this test. However, FDA clearance or approval is not currently required for clinical use. The results are not intended to be used as the sole means for clinical diagnosis or patient management decisions. us Shaniqua Mccurdy APRN LAB BODY FLUIDS AND STOOLS O RDERABLES Final Result [facility] [address] [place] [address] * (ABNORMAL) Body Fluid Cell Count With Diff - Ascites (07/18/2025 10:23 AM EDT) Color, Body fluid Yellow LAB HEMATOLOGY METHOD 07/18/2025 4:15 PM EDT [facility] Appearance, Body fluid Cloudy(A) LAB HEMATOLOGY METHOD 07/18/2025 4:15 PM EDT [facility] Volume, Body fluid 8.0 cc LAB HEMATOLOGY METHOD 07/18/2025 4:15 PM EDT [facility] Fluid Container Tube 2 LAB HEMATOLOGY METHOD 07/18/2025 4:15 PM EDT [facility] Red Blood Cell Count, Body fluid 7,000 uL LAB HEMATOLOGY METHOD 07/18/2025 4:15 PM EDT [facility] Total Nucleated Cell Count, Body fluid 175 uL LAB HEMATOLOGY METHOD 07/18/2025 4:15 PM EDT [facility] Neutrophils %, Body fluid 3 % LAB HEMATOLOGY METHOD 07/18/2025 4:15 PM EDT [facility] Lymphocytes %, Body fluid 72 % LAB HEMATOLOGY METHOD 07/18/2025 4:15 PM EDT [facility] Monocytes/Macro phages %, Body fluid 22 % LAB HEMATOLOGY METHOD 07/18/2025 4:15 PM EDT [facility] Eosinophils %, Body fluid 0 % LAB HEMATOLOGY METHOD 07/18/2025 4:15 PM EDT [facility] Lining/Mesothel ial Cells %, Body fluid 3 % LAB HEMATOLOGY METHOD 07/18/2025 4:15 PM EDT [facility] Neutrophils Absolute (PMN), Body fluid 5 uL LAB HEMATOLOGY METHOD 07/18/2025 4:15 PM EDT [facility] Lymphocytes Absolute, Body fluid 126 uL LAB HEMATOLOGY METHOD 07/18/2025 4:15 PM EDT [facility] Monocytes/Macro phages Absolute, Body fluid 39 uL LAB HEMATOLOGY METHOD 07/18/2025 4:15 PM EDT [facility] Eosinophils Absolute, Body fluid 0 uL LAB HEMATOLOGY METHOD 07/18/2025 4:15 PM EDT [facility] Basophils Absolute, Body fluid 0 uL LAB HEMATOLOGY METHOD 07/18/2025 4:15 PM EDT [facility] Lining/Mesothel ial Cells Absolute, Body fluid 5 uL LAB HEMATOLOGY METHOD 07/18/2025 4:15 PM EDT [facility] Basophils %, Body fluid 0 % LAB HEMATOLOGY METHOD 07/18/2025 4:15 PM EDT [facility] Body Fluid Peritoneal fluid / Unknown Non-blood Collection / Unknown 07/18/2025 10:23 AM EDT 07/18/2025 12:01 PM EDT Shaniqua Mccurdy APRN LAB BODY FLUIDS AND STOOLS ORDERABLES NO SPECIMEN TYPE/SOURCE Final Result [facility] [address] [place] [address] documented in this encounter Visit Diagnoses Diagnosis [...] documented as of this encounter Care Teams Personnel Monitor Relationship Specialty Start Date End Date Alvarez Zimmer MD [address] [place] [address] PCP - General Family Medicine 12/07/24 Lea Fernando [address] [place] [address] Lead Ios Developer Endocrinology 08/29/24 Rachel Ray APRN [address] [place] [address] Nurse Practitioner Gastroenterology 09/24/24 Tamera Isabel LPN VALUE-BASED TRANSFORMATION PROGRAM Licensed Practical Nurse 05/29/25 Monique Tapia LPN [employer] [place] [address] TCM Nurse 07/10/25 08/09/25 documented as of this encounter
--- OUTSIDE RECORDS SUMMARY | 2025-07-18 12:08 | XMS_ITS | Encounter Summary ---
Author Organization [facility] Address [address] [place] [address] Care Team Providers Care Small Machine Bindery Operator Name Role Phone Lea Fernando Unavailable [phone] Rachel Ray CARPENTER SUPERVISOR Unavailable [phone] Alvarez Zimmer MD Primary Care Provider [phone] Tamera Isabel SODA DRIER FEEDER Unavailable Unavailabl Monique Garay SODA DRIER FEEDER Unavailable Unavailable Encounter Details Date Type Department Care Team (Latest Contact Info) Description 07/18/2025 12:08 PM EDT - 07/18/2025 11:59 PM EDT Hospital Encounter [facility] Radiology [address] [place] [address] Discharge Disposition: Home or Self Care Social [...] do you attend [facility] or mandaen services? Patient unable to answer 01/10/2025 Do you belong to any clubs o r organizations such as mandaen groups, unions, [employer] or athletic groups, or school groups? Patient [...] often do you attend chur ch or mandaen services? Never 05/29/2025 Do you [...] more drinks on one occasion? Never 06/25/2025 [facility] - Occupational Stress Questionnaire Answer Date Recorded [...] drink first t kennedy in the morning (EYE-INFECTION CONTROL SPECIALIST) to steady your nerves or to get rid of a hangover? 0 06/25/2025 CAGE Questionnaire Score 0 025 Utilities Answer Date Recorded In the past 12 months has th e [employer], gas, oil, or water [employer] threatened to shut off services in your [...] 6. Suicidal Behavior (Lifetime) No 9:58 AM TAMMYT Stu Samayoa documented as [...] 1 03/01/2025 ergocalciferol (Vitamin D-2) 1.25 MG (44083 UT) capsuleIndication s:Vitamin D deficiency Take 1 [...] Description 08/20/2025 9:30 AM EDT Clinical Support [facility] [employer] [address] [place] [address] 08/20/2025 10:30 AM EDT Social Work [facility] [employer] [address] [facility] [address] [place] [address] Deysi Ortega [place], [place] [id number] 08/20/2025 11:00 AM EDT Office Visit [facility] [employer] [address] [place] [address] [place] [address] Jude Duque MD [address] [facility] [address] [place] [address] 08/22/2025 11:15 AM EDT Appointment [facility] Interventional Radiology [address] [place] [address] 08/22/2025 12:15 PM EDT Appointment [facility] Interventional Radiology [address] [place] [address] 08/26/2025 1:00 PM EDT Office Visit [facility] Endocrinology [address] [place] [address] Miranda Hobson P, CARPENTER SUPERVISOR [address] [facility] [address] [place] [address] 08/29/2025 10:00 AM EDT Appointment [facility] Interventional Radiology [address] [place] [address] 08/29/2025 11:00 AM EDT Appointment [facility] Interventional Radiology [address] [place] [address] 09/05/2025 10:00 AM EDT Appointment [facility] Interventional Radiology [address] [place] [address] 09/05/2025 11:00 AM EDT Appointment [facility] Interventional Radiology [address] [place] [address] documented as of this encounter Procedures Procedure [...] MD on 07/18/2025 12:56 PM Shaniqua Mccurdy CARPENTER SUPERVISOR IMG XR PROCEDURES Final Resu lt documented [...] documented as of this encounter Care Teams Small Machine Bindery Operator Relationship Specialty Start Date End Date Alvarez Zimmer MD [address] [place] [address] PCP - General Family Medicine 12/07/24 Lea Fernando [address] [facility] [address] [place] [address] Dry Kiln Burner Endocrinology 08/29/24 Rachel Ray APRN [address] [facility] [address] [place] [address] Nurse Practitioner Gastroenterology 09/24/24 Tamera Isabel LPN VALUE-BASED TRANSFORMATION PROGRAM Licensed Practical Nurse 05/29/25 Monique Tapia LPN VALUE-BASED [place] [address] TCM Nurse 07/10/25 08/09/25 documented as of this encounter
--- OUTSIDE RECORDS SUMMARY | 2025-07-25 08:57 | XMS_ITS | Encounter Summary ---
Author Organization [facility] Address [address] [place] [address] Care Team Providers Care Christian Ministries Professor Name Role Phone Lea Fernando Unavailable [phone] Rachel Ray BUSINESS OFFICE TECHNICIAN Unavailable [phone] Alvarez Zimmer MD Primary Care Provider [phone] Tamera Isabel MILEAGE CLERK Unavailable Unavailabl Monique Garay MILEAGE CLERK Unavailable Unavailable Reason for Referral * Imaging (Routine) - Closed Specialty Diagnoses / Procedures Referred By Contac t Referred To Contact Radiology Diagnoses Other ascites Procedures US Guided Abdominal Paracentesis Marianna Gordon APRN [address] [place] [address] Phone: tel: fax: Referral ID Status Reason Start Date Expiration Date Visits Re quested Visits Authorized [id number] Closed 06/14/2025 12/14/2026 1 1 * Imaging (Routine) - Closed Specialty Diagnoses / Procedures Referred By Contac t Referred To Contact Radiology Diagnoses Shortness of breath Pleural effusion Procedures US Guided Thoracentesis Marianna Gordon APRN [address] [place] [address] Phone: tel: fax: Referral ID Status Reason Start Date Expiration Date Visits Re quested Visits Authorized [id number] Closed 06/14/2025 12/14/2026 1 1 * Clinic-Administered Medication (Routine) - Closed Specialty Diagnoses / Procedures Referred By Eder zhu Referred To Contact Diagnoses Other ascites Procedures IL ABDOM PARACENTESIS DX/THER W IMAGING GUIDANCE Marianna Gordon APRN [address] [place] [address] Phone: tel: fax: [facility] [address] [place] [address] Phone: tel: fax: Referral ID Status Reason Start Date Expiration Date Visits Re quested Visits Authorized [id number] Closed 07/25/2025 01/24/2027 1 1 Reason for Visit * Imaging (Routine) - Closed Specialty Diagnoses / Procedures Referred By Eder zhu Referred To Contact Radiology Diagnoses Shortness of breath Pleural effusion Procedures US Guided Thoracentesis Marianna Gordon APRN [address] [place] [address] Phone: tel: fax: Referral ID Status Reason Start Date Expiration Date Visits Re quested Visits Authorized [id number] Closed 06/14/2025 12/14/2026 1 1 Encounter Details Date Type Department Care Team (Late st Contact Info) Description 07/25/2025 8:57 AM EDT - 07/25/2025 1:19 PM EDT Hospital Encounter [facility] Interventional Radiology [address] [place] [address] Kandice Silva, RN CH-VASCULAR & INTERVENTIONAL RADIOLOGY [...] week 01/10/2025 How often do you attend [facility] or latter-day services? Patient unable to answer 01/10/2025 Do you belong to any clubs o r organizations such as protestant groups, unions, fraternal or athletic groups, or [...] often do you attend chur ch or latter-day services? Never 05/29/2025 Do you belong to any clubs o r organizations such as protestant groups, unions, fraternal or athletic groups, or [...] more drinks on one occasion? Never 06/25/2025 [facility] - Occupational Stress Questionnaire Answer [...] drink first t kennedy in the morning (EYE-ENGINEERING FACULTY) to steady your nerves or to get [...] call: Vascular and Interventional Radiology Clinic at [phone] Tuesday - Tuesday 8:00 AM to 4:30 PM After hours, weekends, and holidays please call [phone] and ask for the Interventional Radiology provider/Resident on-call Intervention Radiology Appointments: If you need to reschedule a procedure, please call our Schedulers at [phone], option [phone]. If you need to schedule or reschedule a clinic appointment, please call [phone]. [facility] Vascular and Interventional Radiology Clinic [address] [place] [address] documented in this encounter Medications at Time [...] 1 03/01/2025 ergocalciferol (Vitamin D-2) 1.25 MG (46596 UT) capsuleIndication s:Vitamin D deficiency Take 1 [...] from the original note were not included. [id number] Discharge Instructions for Thoracentesis Thoracentesis is a [...] blood. Last Reviewed Date: 2025 00:00:00 ?? 5625-4271 [employer]. All rights reserved. This information is not intended as a substitute for professional medical care. Always follow your healthcare professional's instructions. * John ZendejasTHEO - Kandice Silva RN - 07/25/2025 12:55 PM EDT Images from the original note were not included. [id number] Discharge Instructions for Paracentesis Paracentesis is a [...] fainting. Last Reviewed Date: 2025 00:00:00 ?? 8995-6084 [employer]. All rights reserved. This information is not intended as a substitute for professional medical care. Always follow your healthcare professional's instructions. * Post-Procedure Note - Fabiana Renee APRN, DNP - 07/25/2025 10:30 AM EDT Vascular and Interventional Radiology Brief Postprocedure Note Performed by: Fabiana Renee APRN Hot Roller: Maria Dolores Ontiveros APRN Pre-operative Diagnosis: ascites [...] - Any questions with scheduling please call [phone] - Please place orders for desired fluid studies to be sent for analysis prior to procedure Thank you for allowing us to participate in the care of this patient. Micheal Glasgow, BUSINESS OFFICE TECHNICIAN, DNP Interventional Radiology [phone] [1] Past Medical History: Diagnosis Date ADHD (attention deficit hyperactivity disorder) Allergic Anxiety disorder, unspecified Anxiety Bleeding gums Blood in urine Cataract Chronic kidney disease Cirrhosis (CMS/HCC) Colon cancer screening 09/20/2019 Added automatically from request for surgery [id number] Coronary artery disease Depression 1995 Diabetes mellitus [...] 1979 BLADDER SURGERY N/A Bladder surgery from [facility] BREAST BIOPSY 2011 BREAST SURGERY 2010 BUNIONECTOMY Right CATARACT EXTRACTION Bilateral 2016 CHOLECYSTECTOMY 1979 ESOPHAGOGASTRODUODENOSCOPY HYSTERECTOMY N/A Hysterectomy from [facility] KNEE SURGERY Bilateral ORAL SURGERY N/A Oral surgery from [facility] OTHER SURGICAL HISTORY 2015 ROOT CANAL WISDOM TOOTH EXTRACTION [3] Social History Tobacco Use Smoking status: Never Passive exposure: Never Smokeless tobacco: Never Vaping Use Vaping status: Never Used Substance Use Topics Alcohol use: Not Currently Drug use: Never [4] No Known Allergies [5] Current Facility-Administered Medications: albumin human 25 % infusion 12.5 g, 12.5 g, Intravenous, q15 min PRN, Marianna Gordon N, BUSINESS OFFICE TECHNICIAN albumin human 25 % infusion 87.5 [...] EDT Clinical Support [facility] [place] [address] [facility] [address] [place] [address] 08/20/2025 10:30 AM EDT Social Work [facility] [place] [address] [place] [address] [place] [address] 08/20/2025 11:00 AM EDT Office Visit [facility] [place] [address] [facility] [address] [place] [address] Jude Duque MD [address] [email or web address] [address] [place] [address] 08/22/2025 11:15 AM EDT Appointment [facility] Interventional Radiology [address] [place] [address] 08/22/2025 12:15 PM EDT Appointment [facility] Interventional Radiology [address] [place] [address] 08/26/2025 1:00 PM EDT [facility] [address] [place] [address] Miranda Hobson, BUSINESS OFFICE TECHNICIAN [address] [place] [address] 08/29/2025 10:00 AM EDT Appointment [facility] Interventional Radiology [address] [place] [address] 08/29/2025 11:00 AM EDT Appointment [facility] Inter[facility] Radiology [address] [place] [address] 09/05/2025 10:00 AM EDT Appointment [facility] Inter[facility] Radiology [address] [place] [address] 09/05/2025 11:00 AM EDT Appointment [facility] Interventional Radiology [address] [place] [address] documented as of this encounter Procedures Procedure [...] 07/25/2025 2:24 PM EDT [facility] Conveyor Line Battery Charger ID Kandice Silva 07/25/20 2:24 PM EDT HEALTHCARE LAB Device ID [id number] 07/25/2025 2:24 PM EDT [facility]ALTH[facility]ARE [facility] Specimen Type POC Capillary 07/25/2025 2:24 PM EDT [facility] Blood Capillary blood specimen / Unknown 07/25/2025 2:23 PM EDT 07/25/2025 2:24 PM EDT Kandice Silva MATERIALS RESEARCH ENGINEER POINT OF CARE TE ST DOCKED DEVICE UNSOLICITED RESULTS Final Result [facility] [address] [place] [address] * XR Chest 1 View (07/25/2025 1:46 [...] cirrhosis with ascites and hepatic hydrothorax. TECHNIQUE: Clinical Biostatistician: Fabiana Renee Secondary Conveyor Line Battery Charger: Maria Dolores Ontiveros APRN. Rad Dose: NA [...] cirrhosis with ascites and hepatic hydrothorax. TECHNIQUE: Clinical Biostatistician: Fabiana Renee Secondary Conveyor Line Battery Charger: Maria Dolores Ontiveros APRN. Rad Dose: NA [...] the ascites. [facility] A total of 2.7 liters [...] 3:38 PM Final report signed by Sam Tucrios MD on 07/26/2025 8:51 AM us Marianna [...] by ascites and intermittent hepatic hydrothorax. TECHNIQUE: Clinical Biostatistician: Maria Dolores Ontiveros APRN Secondary Conveyor Line Battery Charger: None. Rad Dose: NA Medications: Continuous physiologic [...] complicated by ascites and intermittenthepatic hydrothorax. TECHNIQUE: Clinical Biostatistician: Maria Dolores Ontiveros APRN Secondary Conveyor Line Battery Charger: None. Rad Dose: NA Medications: Continuous physiologic [...] LAB HEMATOLOGY METHOD 07/26/2025 9:43 AM EDT [facility] Specimen Source, Body Fluid Peritoneal Fluid LAB HEMATOLOGY METHOD 07/26/2025 9:43 AM EDT [facility] Clinical Diagnosis, Body Fluid Ascites LAB HEMATOLOGY METHOD 07/26/2025 9:43 AM EDT [facility] Interpretation , Body Fluid No evidence of malignancy. Predominantly chronic inflammatory cells and reactive mesothelial cells. Light blood. 07/26/2025 9:43 AM EDT [facility] Pathologist Signature, Body Fluid 07/26/2025 9:43 AM EDT [facility] Comment:Reviewed by: Onur Roque MD LAB CP ASR DISCLAIMER No 07/26/2025 9:43 AM EDT [facility] Body Fluid Peritoneal fluid / Unknown Non-blood Collection / Unknown 07/25/2025 11:52 AM EDT 07/25/2025 2:26 PM EDT us Marianna N Cheeks BUSINESS OFFICE TECHNICIAN LAB BODY FLUIDS AND STOOLS O RDERABLES Final Result [facility] [address] [place] [address] * Protein - Ascites (07/25/2025 11:52 AM EDT) Total Protein, Fluid 0.9 g/dL 07/25/2025 5:00 PM EDT [facility] Ascites Peritoneal cavity structure / Unknown 07/25/2025 11:52 AM EDT 07/25/2025 2:26 PM EDT Narrative [facility] - 07/25/2025 5:00 PM EDT This test was developed and its performance characteristics determined by [facility]. The U.S. Food and Drug Administration has not approved or cleared this test. However, FDA clearance or approval is not currently required for clinical use. The results are not intended to be used as the sole means for clinical diagnosis or patient management decisions. us Marianna N Cheeks BUSINESS OFFICE TECHNICIAN LAB BODY FLUIDS AND STOOLS O RDERABLES Final Result [facility] [address] [place] [address] * (ABNORMAL) Body Fluid Cell Count With Diff - Ascites (07/25/2025 11:52 AM EDT) Color, Body fluid [place] LAB HEMATOLOGY METHOD 07/25/2025 4:56 PM EDT [facility] Appearance, Body fluid Cloudy(A) LAB HEMATOLOGY METHOD 07/25/2025 4:56 PM EDT [facility] Volume, Body fluid 30.0 cc LAB HEMATOLOGY METHOD 07/25/2025 4:56 PM EDT [facility] Fluid Container Specimen received in miscellaneous container LAB HEMATOLOGY METHOD 07/25/2025 4:56 PM EDT [facility] Red Blood Cell Count, Body fluid 4,000 uL LAB HEMATOLOGY METHOD 07/25/2025 4:56 PM EDT [facility] Total Nucleated Cell Count, Body fluid 158 uL LAB HEMATOLOGY METHOD 07/25/2025 4:56 PM EDT [facility] Neutrophils %, Body fluid 11 % LAB HEMATOLOGY METHOD 07/25/2025 4:56 PM EDT [facility] Lymphocytes %, Body fluid 54 % LAB HEMATOLOGY METHOD 07/25/2025 4:56 PM EDT [facility] Monocytes/Macr ophages %, Body fluid 27 % LAB HEMATOLOGY METHOD 07/25/2025 4:56 PM EDT [facility] Eosinophils %, Body fluid 0 % LAB HEMATOLOGY METHOD 07/25/2025 4:56 PM EDT [facility] Lining/Mesothe lial Cells %, Body fluid 8 % LAB HEMATOLOGY METHOD 07/25/2025 4:56 PM EDT [facility] Neutrophils Absolute (PMN), Body fluid 17 uL LAB HEMATOLOGY METHOD 07/25/2025 4:56 PM EDT [facility] Lymphocytes Absolute, Body fluid 85 uL LAB HEMATOLOGY METHOD 07/25/2025 4:56 PM EDT [facility] Monocytes/Macr ophages Absolute, Body fluid 43 uL LAB HEMATOLOGY METHOD 07/25/2025 4:56 PM EDT [facility] Eosinophils Absolute, Body fluid 0 uL LAB HEMATOLOGY METHOD 07/25/2025 4:56 PM EDT [facility] Basophils Absolute, Body fluid 0 uL LAB HEMATOLOGY METHOD 07/25/2025 4:56 PM EDT [facility] Lining/Mesothe lial Cells Absolute, Body fluid 13 uL LAB HEMATOLOGY METHOD 07/25/2025 4:56 PM EDT [facility] Basophils %, Body fluid 0 % LAB HEMATOLOGY METHOD 07/25/2025 4:56 PM EDT [facility] Body Fluid Peritoneal fluid / Unknown Non-blood Collection / Unknown 07/25/2025 11:52 AM EDT 07/25/2025 2:26 PM EDT us Marianna N Cheeks BUSINESS OFFICE TECHNICIAN LAB BODY FLUIDS AND STOOLS ORDERABLES NO SPECIMEN TYPE/SOURCE Final Result [facility] [address] [place] [address] documented in this encounter Visit Diagnoses Diagnosis [...] documented as of this encounter Care Teams [employer] Professor Relationship Specialty Start Date End Date Alvarez Zimmer MD [address] [place] [address] PCP - General Family Medicine 12/07/24 Lea Fernando [address] [facility] [address] [place] [id number] Faro Dealer Endocrinology 08/29/24 Rachel Ray APRN [address] [place] [address] Nurse Practitioner Gastroenterology 09/24/24 Tamera Isabel LPN VALUE-BASED TRANSFORMATION PROGRAM Licensed Practical Nurse 05/29/25 Monique Tapia LPN VALUE-BASED [place] [address] TCM Nurse 07/10/25 08/09/25 documented as of this encounter
--- OUTSIDE RECORDS SUMMARY | 2025-07-25 13:20 | XMS_ITS | Encounter Summary ---
Author Organization [facility] Address [address] [place] [address] Care Team Providers Care Bss Solution Architect Name Role Phone Lea Fernando Unavailable [phone] Rachel Ray MERCHANDISE PICKUP/RECEIVING ASSOCIATE Unavailable [phone] Alvarez Zimmer MD Primary Care Provider [phone] Tamera Isabel PSYCHOLOGY TECH Unavailable Unavailabl Monique Garay PSYCHOLOGY TECH Unavailable Unavailable Encounter Details Date Type Department Care Team (Latest Contact Info) Description 07/25/2025 1:20 PM EDT - 07/25/2025 11:59 PM EDT Hospital Encounter [facility] H Radiology [address] [place] [address] Discharge Disposition: Home or Self Care Social [...] do you attend [facility] or samaritan services? Patient unable to answer 01/10/2025 Do you belong to any clubs o r organizations such as caodaism groups, unions, [employer] or athletic groups, or school groups? [...] often do you attend chur ch or samaritan services? Never 05/29/2025 Do you [...] more drinks on one occasion? Never 06/25/2025 [facility] - Occupational Stress Questionnaire Answer [...] any time in the past 12 m [facility], were you homeless or living in a intermediate (including now)? No 06/26/2025 CAGE ASSESSMENT Answer [...] drink first t kennedy in the morning (EYE-ANTENNA RIGGER) to steady your nerves or to get rid of a hangover? 0 06/25/2025 CAGE Questionnaire Score 0 025 Utilities Answer Date Recorded In the past 12 months has th e [employer], gas, oil, or water [employer] threatened to shut off services in your [...] 1 03/01/2025 ergocalciferol (Vitamin D-2) 1.25 MG (17737 UT) capsuleIndication s:Vitamin D deficiency Take 1 [...] Description 08/20/2025 9:30 AM EDT Clinical Support [facility] [place] [address] [place] [address] 08/20/2025 10:30 AM EDT Social Work [facility] [place] [address] [place] [address] [place] [address] 08/20/2025 11:00 AM EDT Office Visit [facility] [place] [address] [place] [address] Jude Duque MD [address] [place] [address] 08/22/2025 11:15 AM EDT Appointment [facility] Interventional Radiology [address] [place] [address] 08/22/2025 12:15 PM EDT Appointment [facility] Interventional Radiology [address] [place] [address] 08/26/2025 1:00 PM EDT Office Visit [facility] Endocrinology [address] [place] [address] Miranda Hobson P, MERCHANDISE PICKUP/RECEIVING ASSOCIATE [address] [place] [address] 08/29/2025 10:00 AM EDT Appointment [facility] Interventional Radiology [address] [place] [address] 08/29/2025 11:00 AM EDT Appointment [facility] Inter[facility] Radiology [address] [place] [address] 09/05/2025 10:00 AM EDT Appointment [facility] Interventional Radiology [address] [place] [address] 09/05/2025 11:00 AM EDT Appointment [facility] Interventional Radiology [address] [place] [address] documented as of this encounter Procedures Procedure [...] documented as of this encounter Care Teams Bss Solution Architect Relationship Specialty Start Date End Date Alvarez Zimmer MD [address] [place] [address] PCP - General Family Medicine 12/07/24 Lea Fernando [address] [place] [address] Medical Laboratory Technicians Endocrinology 08/29/24 Rachel Ray APRN [address] [place] [address] Nurse Practitioner Gastroenterology 09/24/24 Tamera Isabel LPN VALUE-BASED TRANSFORMATION PROGRAM Licensed Practical Nurse 05/29/25 Monique Tapia LPN VALUE-[place] [address] TCM Nurse 07/10/25 08/09/25 documented as of this encounter
--- OUTSIDE RECORDS SUMMARY | 2025-08-01 08:36 | XMS_ITS | Encounter Summary ---
Author Organization [facility] Address [address] [place] [address] Care Team Providers Care Algebraist Name Role Phone Lea Fernando Unavailable [phone] Rachel Ray APRN Unavailable [phone] Alvarez Zimmer MD Primary Care Provider [phone] Tamera Isabel RADIO REPAIR TEACHER Unavailable Unavailabl Monique Garay RADIO REPAIR TEACHER Unavailable Unavailable Reason for Referral * Clinic-Administered Medication (Routine) - Closed Specialty Diagnoses / Procedures Referred By Eder t Referred To Contact Diagnoses Other ascites Procedures SD ABDOM PARACENTESIS DX/THER W IMAGING GUIDANCE Fabiana Renee APRN, DNP [address] [place] [address] Phone: tel: fax: [facility] [address] [place] [address] Phone: tel: fax: Referral ID Status Reason Start Date Expiration Date Visits Re quested Visits Authorized [id number] Closed 08/01/2025 01/31/2027 1 1 * Imaging (Routine) - Closed Specialty Diagnoses / Procedures Referred By Contac t Referred To Contact Radiology Diagnoses Other ascites Procedures US Guided Abdominal Paracentesis Marianna Gordon APRN [address] [place] [address] Phone: tel: fax: Referral ID Status Reason Start Date Expiration Date Visits Re quested Visits Authorized [id number] Closed 07/25/2025 01/24/2027 1 1 Reason for Visit * Imaging (Routine) - Closed Specialty Diagnoses / Procedures Referred By Eder zhu Referred To Contact Radiology Diagnoses Other ascites Procedures US Guided Abdominal Paracentesis Marianna Gordon APRN [address] [place] [address] Phone: tel: fax: Referral ID Status Reason Start Date Expiration Date Visits Re quested Visits Authorized [id number] Closed 07/25/2025 01/24/2027 1 1 Encounter Details Date Type Department Care Team (Late st Contact Info) Description 08/01/2025 8:36 AM EDT - 08/01/2025 12:47 PM EDT Hospital Encounter [facility] Interventional Radiology [address] [place] [address] Pretty Enriquez RN CH-VASCULAR & INTERVENTIONAL RADIOLOGY [...] [facility]? Patient unable to answer [...] more drinks on one occasion? Never 06/25/2025 [facility] - Occupational Stress Questionnaire [...] drink first t kennedy in the morning ([employer]) to steady your nerves or to get rid of a hangover? 0 06/25/2025 CAGE Questionnaire Score 0 025 Utilities Answer Date Recorded In the past 12 months has th e [employer], gas, oil, or water company threatened to [...] 1 03/01/2025 ergocalciferol (Vitamin D-2) 1.25 MG (12751 UT) capsuleIndication s:Vitamin D deficiency Take 1 [...] from the original note were not included. [address]4630 Discharge Instructions for Thoracentesis Thoracentesis is a [...] blood. Last Reviewed Date: 2025 00:00:00 ?? 3410-7937 [employer]. All rights reserved. This information is not intended as a substitute for professional medical care. Always follow your healthcare professional's instructions. * John ZendejasTHEO Zoe, Pretty Rivera RN - 08/01/2025 11:39 AM EDT Images from the original note were not included. [address]75 Paracentesis Your healthcare provider recommends that you [...] are taking. This includes all prescription medicines, [id number]-[id number] medicines, street drugs, herbs, vitamins, and other [...] fainting Last Reviewed Date: 2022 00:00:00 ?? 9044-4902 [employer]. All rights reserved. This information is not intended as a substitute for professional medical care. Always follow your healthcare professional's instructions. * Post-Procedure Note - Fabiana Renee APRN, ANGELLA - 08/01/2025 10:00 AM EDT Vascular and Interventional Radiology Brief Postprocedure Note Performed by: Fabiana Renee APRN/ Zaheer Ortiz MD Ship Design Teacher: Marianna Gordon APRN Pre-operative Diagnosis: right pleural [...] - Any questions with scheduling please call [phone] - Please place orders for desired fluid studies to be sent for analysis prior to procedure Thank you for allowing us to participate in the care of this patient. Micheal Glasgow, TOILET ATTENDANT, DNP Interventional Radiology [phone] [1] Past Medical History: Diagnosis Date ADHD (attention deficit hyperactivity disorder) Allergic Anxiety disorder, unspecified Anxiety Bleeding gums Blood in urine Cataract Chronic kidney disease Cirrhosis (CMS/HCC) Colon cancer screening 09/20/2019 Added automatically from request for surgery [id number] Coronary artery disease Depression 1995 Diabetes mellitus [...] 1979 BLADDER SURGERY N/A Bladder surgery from [email or web address] BREAST BIOPSY 2011 BREAST SURGERY 2010 BUNIONECTOMY Right CATARACT EXTRACTION Bilateral 2016 CHOLECYSTECTOMY 1980 ESOPHAGOGASTRODUODENOSCOPY HYSTERECTOMY N/A Hysterectomy from [email or web address] KNEE SURGERY Bilateral ORAL SURGERY N/A Oral surgery from [email or web address] OTHER SURGICAL HISTORY 2015 ROOT CANAL WISDOM TOOTH EXTRACTION [3] Social History Tobacco Use Smoking status: Never Passive exposure: Never Smokeless tobacco: Never Vaping Use Vaping status: Never Used Substance Use Topics Alcohol use: Not Currently Drug use: Never [4] No Known Allergies [5] Current Facility-Administered Medications: albumin human 25 % infusion 12.5 g, 12.5 g, Intravenous, q15 min PRN, Marianna Gordon, TOILET ATTENDANT albumin human 25 % infusion 87.5 g, [...] Description 08/20/2025 9:30 AM EDT Clinical Support [facility] [address] [facility] [address] [place] [address] 08/20/2025 10:30 AM EDT Social Work [facility] [address] [facility] [address] [place] [address] Deysi Ortega [place], [place] [id number] 08/20/2025 11:00 AM EDT Office Visit [facility] [address] [place] [address] Jude Duque MD [address] [facility] [address] [place] [address] 08/22/2025 11:15 AM EDT Appointment [facility] Inter[facility] Radiology [address] [place] [address] 08/22/2025 12:15 PM EDT Appointment [facility] Inter[facility] Radiology [address] [place] [address] 08/26/2025 1:00 PM EDT Office Visit [facility] [address] [place] [address] Miranda Hobson P, TOILET ATTENDANT [address] [facility] [address] [place] [address] 08/29/2025 10:00 AM EDT Appointment [facility] Inter[facility] Radiology [address] [place] [address] 08/29/2025 11:00 AM EDT Appointment [facility] [address] [place] [address] 09/05/2025 10:00 AM EDT Appointment [facility] Inter[facility]iology [address] [place] [address] 09/05/2025 11:00 AM EDT Appointment [facility] Inter[facility] Radiology [address] [place] [address] documented as of this encounter Procedures Procedure [...] to IR, undergoing outpatient paracentesis/thoracentesis weekly TECHNIQUE: Revenue Stamp Clerk: Noé BALDERAS, Marianna Gordon APRN Secondary Industrial Sociologist: None. Rad Dose: NA Medications: Continuous physiologic [...] known to IR, undergoing outpatientparacentesis/thoracentesis weekly TECHNIQUE: Revenue Stamp Clerk: Noé BALDERAS, Marianna Gordon APRN Secondary Industrial Sociologist: None. Rad Dose: NA Medications: Continuous physiologic [...] on 08/01/2025 5:04 PM us Marianna Gordon TOILET ATTENDANT IMG US PROCEDURES Final Resu lt * Body fluid, cytospin, pathologist interpretation (08/01/2025 10:44 AM EDT) Specimen Type Body Fluid LAB HEMATOLOGY METHOD 08/02/2025 12:12 PM EDT [facility] Specimen Source, Body Fluid Peritoneal Fluid LAB HEMATOLOGY METHOD 08/02/2025 12:12 PM EDT [facility] Clinical Diagnosis, Body Fluid Ascites LAB HEMATOLOGY METHOD 08/02/2025 12:12 PM EDT [facility] Interpretation , Body Fluid No evidence of malignancy Predominantly chronic inflammatory cells Lymphocytosis Light blood A resident was involved in the service. I attest I examined the relevant preparations for the specimens and confirmed the diagnosis or interpretation. 08/02/2025 12:12 PM EDT [facility] Pathologist Signature, Body Fluid 08/02/2025 12:12 PM EDT [facility] Comment:Reviewed by: Kadie dobbs MD LAB CP ASR DISCLAIMER Yes 08/02/2025 12:12 PM EDT [facility] Body Fluid Peritoneal fluid / Unknown Non-blood Collection / Unknown 08/01/2025 10:44 AM EDT 08/01/2025 12:48 PM EDT Fabiana Renee APRN, DNP LAB BODY FLUIDS AND ST OOLS ORDERABLES Final Result Performing Organization Address [facility] Co de Phone Number [facility] [address] [place] [address] * Protein - Ascites (08/01/2025 10:44 AM EDT) Total Protein, Fluid 1 g/dL 08/01/2025 3:45 PM EDT [facility] Ascites Peritoneal cavity structure / Unknown 08/01/2025 10:44 AM EDT 08/01/2025 12:48 PM EDT Narrative [facility] - 08/01/2025 3:45 PM EDT This test was developed and its performance characteristics determined by [facility]. The U.S. Food and Drug Administration has not approved or cleared this test. However, FDA clearance or approval is not currently required for clinical use. The results are not intended to be used as the sole means for clinical diagnosis or patient management decisions. Fabiana Renee APRN, DNP LAB BODY FLUIDS AND ST OOLS ORDERABLES Final Result Performing Organization Address City/[facility] Co de Phone Number [facility] [address] [place] [address] * (ABNORMAL) Body Fluid Cell Count With Diff - Ascites (08/01/2025 10:44 AM EDT) Color, Body fluid [place] LAB HEMATOLOGY METHOD 08/01/2025 7:44 PM EDT [facility] Appearance, Body fluid Cloudy(A) LAB HEMATOLOGY METHOD 08/01/2025 7:44 PM EDT [facility] Volume, Body fluid 28.0 cc LAB HEMATOLOGY METHOD 08/01/2025 7:44 PM EDT [facility] Fluid Container Specimen received in miscellaneous container LAB HEMATOLOGY METHOD 08/01/2025 7:44 PM EDT [facility] Red Blood Cell Count, Body fluid 5,000 uL LAB HEMATOLOGY METHOD 08/01/2025 7:44 PM EDT [facility] Total Nucleated Cell Count, Body fluid 155 uL LAB HEMATOLOGY METHOD 08/01/2025 7:44 PM EDT [facility] Neutrophils %, Body fluid 2 % LAB HEMATOLOGY METHOD 08/01/2025 7:44 PM EDT [facility] Lymphocytes %, Body fluid 79 % LAB HEMATOLOGY METHOD 08/01/2025 7:44 PM EDT [facility] Monocytes/Macr ophages %, Body fluid 17 % LAB HEMATOLOGY METHOD 08/01/2025 7:44 PM EDT [facility] Eosinophils %, Body fluid 0 % LAB HEMATOLOGY METHOD 08/01/2025 7:44 PM EDT [facility] Lining/Mesothe lial Cells %, Body fluid 2 % LAB HEMATOLOGY METHOD 08/01/2025 7:44 PM EDT [facility] Neutrophils Absolute (PMN), Body fluid 3 uL LAB HEMATOLOGY METHOD 08/01/2025 7:44 PM EDT [facility] Lymphocytes Absolute, Body fluid 122 uL LAB HEMATOLOGY METHOD 08/01/2025 7:44 PM EDT [facility] Monocytes/Macr ophages Absolute, Body fluid 26 uL LAB HEMATOLOGY METHOD 08/01/2025 7:44 PM EDT [facility] Eosinophils Absolute, Body fluid 0 uL LAB HEMATOLOGY METHOD 08/01/2025 7:44 PM EDT [facility] Basophils Absolute, Body fluid 0 uL LAB HEMATOLOGY METHOD 08/01/2025 7:44 PM EDT [facility] Lining/Mesothe lial Cells Absolute, Body fluid 3 uL LAB HEMATOLOGY METHOD 08/01/2025 7:44 PM EDT [facility] Basophils %, Body fluid 0 % LAB HEMATOLOGY METHOD 08/01/2025 7:44 PM EDT [facility] Body Fluid Peritoneal fluid / Unknown Non-blood Collection / Unknown 08/01/2025 10:44 AM EDT 08/01/2025 12:48 PM EDT us Fabiana Harp Víctor TOILET ATTENDANT, DNP LAB BODY FLUID S AND STOOLS ORDERABLES NO SPECIMEN TYPE/SOURCE Final Result [facility] [address] [place] [address] documented in this encounter Visit Diagnoses Diagnosis [...] documented as of this encounter Care Teams Algebraist Relationship Specialty Start Date End Date Alvarez Zimmer [place] [facility] [place] [address] PCP - General Family Medicine 12/07/24 Lea Fernando [address] [place] [address] [address] [place] [address] [employer] Reading Teacher Endocrinology 08/29/24 Rachel Ray, ADRI [address] [facility] [address] [place] [address] Nurse Practitioner Gastroenterology 09/24/24 Tamera Isabel LPN VALUE-BASED TRANSFORMATION PROGRAM Licensed Practical Nurse 05/29/25 Monique Tapia LPN [employer] [address] TCM Nurse 07/10/25 08/09/25 documented as of this encounter
--- OUTSIDE RECORDS SUMMARY | 2025-08-01 12:48 | XMS_ITS | Encounter Summary ---
Author Organization [facility] Address [address] [place] [address] Care Team Providers Care Computer Technical Specialist Name Role Phone Lea Fernando Unavailable [phone] Rachel Ray OIL TRUCK DRIVER Unavailable [phone] Alvarez Zimmer MD Primary Care Provider [phone] Tamera Isabel PMO LEAD Unavailable Unavailabl Monique Garay PMO LEAD Unavailable Unavailable Encounter Details Date Type Department Care Team (Latest Contact Info) Description 08/01/2025 12:48 PM EDT - 08/01/2025 11:59 PM EDT Hospital Encounter [facility] [address] [place] [address] Discharge Disposition: Home or Self Care Social [...] week 01/10/2025 How often do you attend [facility] or adventism services? Patient unable to answer 01/10/2025 Do you belong to any clubs o r organizations such as caodaism groups, unions, [employer] [facility] or athletic groups, or school groups? Patient [...] you attend chur ch or adventism services? Never 05/29/2025 Do [...] more drinks on one occasion? Never 06/25/2025 [facility] - Occupational Stress Questionnaire Answer Date [...] in the past [address] [facility], were you homeless or living [...] drink first t kennedy in the morning (EYE-LIBERAL ARTS TEACHER) to steady your nerves or to get rid of a hangover? 0 06/25/2025 CAGE Questionnaire Score 0 025 Utilities Answer Date Recorded In the past 12 months has th e [employer], gas, oil, or water [employer] threatened to shut off services in your [...] 1 03/01/2025 ergocalciferol (Vitamin D-2) 1.25 MG (33301 UT) capsuleIndication s:Vitamin D deficiency Take 1 [...] Description 08/20/2025 9:30 AM EDT Clinical Support [facility] [address] [place] [address] 08/20/2025 10:30 AM EDT Social Work [facility] [address] [place] [address] [place] [address] 08/20/2025 11:00 AM EDT Office Visit [facility] [address] [place] [address] Jude Duque MD [address] [place] [address] 08/22/2025 11:15 AM EDT Appointment [facility] [address] [place] [address] 08/22/2025 12:15 PM EDT Appointment [facility] [address] [place] [address] 08/26/2025 1:00 PM EDT [facility] [address] [place] [address] Miranda Hobson P, OIL TRUCK DRIVER [address] [place] [address] 08/29/2025 10:00 AM EDT Appointment [facility] [address] [place] [address] 08/29/2025 11:00 AM EDT Appointment [facility] [address] [place] [address] 09/05/2025 10:00 AM EDT Appointment [facility] [address] [place] [address] 09/05/2025 11:00 AM EDT Appointment [facility] [address] [place] [address] documented as of this encounter Procedures Procedure [...] as of this encounter Care Teams Computer Technical Specialist Relationship Specialty Start Date End Date Alvarez Zimmer MD [address] [place] [address] [place] [phone] PCP - General Family Medicine 12/07/24 Lea Fernando [address] [place] [address] Clothing Sales Assistant Endocrinology 08/29/24 Rachel Ray APRN [address] [place] [address] Nurse Practitioner Gastroenterology 09/24/24 Tamera Isabel LPN VALUE-BASED TRANSFORMATION PROGRAM Licensed Practical Nurse 05/29/25 Monique Tapia LPN VALUE-BASED [place] [address] TCM Nurse 07/10/25 08/09/25 documented as of this encounter
--- OUTSIDE RECORDS SUMMARY | 2025-08-08 08:51 | XMS_ITS | Encounter Summary ---
Author Organization [facility] Address [address] [place] [address] Care Team Providers Care Bakery Clerk Name Role Phone Lea Fernando Unavailable [phone] Rachel Ray STAMP REDEMPTION CLERK Unavailable [phone] Alvarez Zimmer MD Primary Care Provider [phone] Tamera Isabel SERVICE STATION EQUIPMENT MECHANIC Unavailable Unavailabl Monique Garay SERVICE STATION EQUIPMENT MECHANIC Unavailable Unavailable Reason for Referral * Clinic-Administered Medication (Routine) - Closed Specialty Diagnoses / Procedures Referred By Contac t Referred To Contact Diagnoses Other ascites Procedures VT ABDOM PARACENTESIS DX/THER W IMAGING GUIDANCE Shaniqua Mccurdy APRN [address] [place] [address] Phone: tel: fax: [facility] [address] [place] [address] Phone: tel: fax: Referral ID Status Reason Start Date Expiration Date Visits Re quested Visits Authorized [id number] Closed 08/08/2025 02/07/2027 1 1 * Imaging (Routine) - Closed Specialty Diagnoses / Procedures Referred By Contac t Referred To Contact Radiology Diagnoses Other ascites Procedures US Guided Thoracentesis Marianna Gordon APRN [address] [place] [address] Phone: tel: fax: Referral ID Status Reason Start Date Expiration Date Visits Re quested Visits Authorized [id number] Closed 07/25/2025 01/24/2027 1 1 * Imaging (Routine) - Closed Specialty Diagnoses / Procedures Referred By Eder zhu Referred To Contact Radiology Diagnoses Other ascites Procedures US Guided Abdominal Paracentesis Marianna Gordon APRN [address] [place] [address] Phone: tel: fax: Referral ID Status Reason Start Date Expiration Date Visits Re quested Visits Authorized [id number] Closed 07/25/2025 01/24/2027 1 1 Reason for Visit * Imaging (Routine) - Closed Specialty Diagnoses / Procedures Referred By Eder zhu Referred To Contact Radiology Diagnoses Other ascites Procedures US Guided Abdominal Paracentesis Marianna Gordon APRN [address] [place] [address] Phone: tel: fax: Referral ID Status Reason Start Date Expiration Date Visits Re quested Visits Authorized [id number] Closed 07/25/2025 01/24/2027 1 1 Encounter Details Date Type Department Care Team (Late st Contact Info) Description 08/08/2025 8:51 AM EDT - 08/08/2025 2:26 PM EDT Hospital Encounter [facility] Interventional Radiology [address] [place] [address] Mariam Thomas, RN [facility]-VASCULAR & INTERVENTIONAL RADIOLOGY Other ascites [...] week 01/10/2025 How often do you attend [facility] or yazidism services? Patient unable to [...] more drinks on one occasion? 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 0 06/25/2025 CAGE Questionnaire Score 0 025 Utilities Answer Date Recorded In the past 12 months has th [employer], gas, oil, or water company threatened to [...] Sign Reading Time Taken Comments Blood Pressure 97/59 08/08/2025 2:00 PM EDT Pulse 68 08/08/2025 2:00 PM EDT Temperature 36.9 C (98.5 F) 08/08/2025 12:30 PM EDT Respiratory Rate 19 08/08/2025 2:00 PM EDT Oxygen Saturation 92% 08/08/2025 2:00 PM EDT Inhaled Oxygen Concentration - - Weight 86.2 kg (190 lb 0.6 oz) 08/08/2025 9:50 A M EDT Height 165.1 cm (5' 5 ) 08/08/2025 9:50 AM EDT Body Mass Index 31.62 08/08/2025 9:50 AM EDT documented in this encounter Functional [...] this encounter Discharge Instructions * Discharge Instructions* Mariam Thomas RN - 08/08/2025 10:26 AM EDT *Interventional Radiology* (IR) Questions/Concerns & Appointments: If there are questions or concerns after discharge please call: [facility]ascular and Inter[facility] Radiology Clinic at [phone] Tuesday - Tuesday 8:00 AM to 4:30 PM After hours, weekends, and holidays please call [phone] and ask for the Interventional Radiology provider/Resident on-call Intervention Radiology Appointments: If you need to reschedule a procedure, please call our Schedulers at [phone], option 4. If you need to schedule or reschedule a clinic appointment, please call [phone]. [facility] Vascular and Interventional Radiology Clinic [facility] [address] [place] [address] documented in this encounter Medications at Time [...] 1 03/01/2025 ergocalciferol (Vitamin D-2) 1.25 MG (92967 UT) capsuleIndication s:Vitamin D deficiency Take 1 [...] encounter Miscellaneous Notes * Progress Notes - Mariam Thomas RN - 08/08/2025 1:04 PM EDT Pt received from intraprocedure RN to [facility][phone]; handoff report obtained; Pt placed on monitor, alarms active. See RN flowsheet assessment. * Progress Notes - Mariam Thomas RN - 08/08/2025 11:42 AM EDT PT called out c/o hard to breath ; LCTA bilat, diminished same as before; O2 @ 2L/NC placed; pt voices relief after O2 supplement. Plan of care ongoing. * Post-Procedure Note - Shaniqua Mccurdy APRN - 08/08/2025 11:15 AM EDT Vascular and Interventional Radiology [...] Post-Procedure Note - Shaniqua Mccurdy APRN - 08/08/2025 11:15 AM EDT Vascular and Interventional Radiology [...] is in stable condition. * H&P - Calli Shaniquasierra Rivera APRN - 08/08/2025 11:15 AM EDT 08/08/25 Patient: Gabi Zimmer Date of : 1960/64 y.o. Chief Complaint: Here for paracentesis and thoracentesis. History of Present Illness: Gabi Zimmer is a 64 y.o. 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 She is presenting for paracentesis and thoracentesis. History and admission information obtained from [...] are personally reviewed unless otherwise noted. VITALS: BP: ()/() Arterial Line BP: ()/() There is no height or weight on file to calculate BMI. I & O SUMMARY No intake/output data [...] 06/23/25 === [address] [facility] OUTSIDE IMAGES === 08/01/25 === XR CHEST 1 VIEW - Narrative - CLINICAL INDICATION: post thoracentesis TECHNIQUE: XR CHEST 1 VIEW COMPARISON: Chest x-ray 07/25/2025. FINDINGS: Right lower lung opacity. Trace left pleural effusion. Similar appearance of the cardiac and mediastinal silhouettes. No pneumothorax. - Impression - Right lower lung opacity which may represent [...] Golden Jin MD on 08/01/2025 2:12 PM Echo, Adult Transthoracic Complete Result Date: [...] is no recent study available for direct [id number]-ke-oeqd comparison. Assessment & Plan: Decompensated cirrhosis, MASH Ascites Hepatic hydrothorax EV MELD 3.0: 21 at 07/09/2025 5:52 AM MELD-Na: 21 at 07/09/2025 5:52 AM Calculated from: Serum Creatinine: 1.22 mg/dL at 07/09/2025 3:22 AM Serum Sodium: 136 mmol/L at 07/09/2025 3:22 AM Total Bilirubin: 2.7 mg/dL at 07/09/2025 3:22 AM Serum Albumin: 3.5 g/dL at 07/09/2025 3:22 AM INR(ratio): 2 at 07/09/2025 5:52 AM Age at listin years Sex: Female at 07/09/2025 5:52 AM - HCC: No identified liver lesions [...] PLAN: - Will perform paracentesis and thoracentesis today. - Will consent prior to procedure Thank you for allowing us to participate in the care of this patient. Shaniqua Mccurdy, STAMP REDEMPTION CLERK Interventional Radiology [phone] [1] Past Medical History: Diagnosis Date ADHD (attention deficit hyperactivity disorder) Allergic Anxiety disorder, unspecified Anxiety Bleeding gums Blood in urine Cataract Chronic kidney disease Cirrhosis (CMS/HCC) Colon cancer screening 09/20/2019 Added automatically from request for surgery [id number] Coronary artery disease Depression 1995 Diabetes mellitus [...] 1979 BLADDER SURGERY N/A Bladder surgery from [employer] BREAST BIOPSY 2011 BREAST SURGERY 2010 BUNIONECTOMY Right CATARACT EXTRACTION Bilateral 2016 CHOLECYSTECTOMY 1979 ESOPHAGOGASTRODUODENOSCOPY HYSTERECTOMY N/A Hysterectomy from [employer] KNEE SURGERY Bilateral ORAL SURGERY N/A Oral surgery from [employer] OTHER SURGICAL HISTORY 2015 ROOT CANAL WISDOM TOOTH EXTRACTION [3] Social History Tobacco Use Smoking status: Never Passive exposure: Never Smokeless tobacco: Never Vaping Use Vaping status: Never Used Substance Use Topics Alcohol use: Not Currently Drug use: Never [4] No Known Allergies [5] Current Outpatient Medications: [Paused] Abaloparatide (Tymlos) 3120 MCG/1.56ML solution pen-injector, Inject 80 mcg under the skindaily., Disp: 1.56 mL, Rfl: 2 benzonatate (Tessalon) 100 MG capsule, Take 1 capsule by mouth 3 times a day as needed for cough. Do not crush or chew., Disp: , Rfl: bisacodyl (Dulcolax) 10 MG suppository, Insert 1 suppository into the rectum daily as needed for constipation., Disp: , Rfl: calcitriol (Rocaltrol) 0.25 MCG capsule, Take 1 capsule by mouth daily., Disp: 30 capsule, Rfl: 0 calcium carbonate EX (Tums E-X) 750 MG chewable tablet, Chew 1 tablet (750 mg) 1 (one) time each day., Disp: , Rfl: capsaicin (Zostrix-HP) 0.075 % topical cream, Apply 1 Application topically daily as needed (Leg and foot cramps)., Disp: , Rfl: carboxymethylcellulose PF (Refresh Plus) 0.5 % ophthalmic solution, Administer 1 drop into both eyes as needed for dry eyes., Disp: , Rfl: cetirizine (ZyrTEC) 10 MG tablet, Take 1 tablet by mouth daily., Disp: 30 tablet, Rfl: 0 cholecalciferol (Vitamin D-3) 25 MCG (1000 UT) tablet, Take 1 tablet by mouth daily., Disp: 90 tablet, Rfl: 2 ciprofloxacin (Cipro) 500 MG tablet, Take 1 tablet by mouth daily., Disp: 90 tablet, Rfl: 1 ergocalciferol (Vitamin D-2) 1.25 MG (50812 UT) capsule, Take 1 capsule by mouth 1 time per week., Disp: 4 capsule, Rfl: 0 hydrOXYzine HCl (Atarax) 25 MG tablet, Take 0.5 tablets by mouth at night as needed for itching., Disp: , Rfl: insulin glargine-yfgn 100 UNIT/ML injection vial, Inject 24 Units under the skin daily., Disp: , Rfl: insulin lispro (Admelog) 100 UNIT/ML injection, Inject 0-10 Units under the skin 3 times a day withmeals. See After Visit Summary for instructions on how to take your insulin., Disp: , Rfl: insulin lispro (Admelog) 100 UNIT/ML injection, Inject 0-3 Units under the skin 2 times a night. See After Visit Summary for instructions on how to take your insulin., Disp: , Rfl: lactulose (Chronulac) 10 GM/15ML solution, Take 30 mL by mouth 3 times a day., Disp: 2700 mL, Rfl: 11 Magnesium Oxide, Laxative, 500 MG tablet, Take 1 tablet by mouth daily., Disp: 90 tablet, Rfl: 3 melatonin tablet, Take 1 tablet by mouth at night as needed for sleep., Disp: , Rfl: midodrine (Proamatine) 5 MG tablet, Take 3 tablets by mouth 3 times a day., Disp: , Rfl: Multiple Vitamins-Minerals (COMPLETE WOMENS PO), Take 1 tablet by mouth in the morning., Disp: , Rfl: polyethylene glycol (Miralax) 17 g packet, Take 17 g by mouth 2 times a day., Disp: , Rfl: prochlorperazine (Compazine) 5 MG tablet, Take 1 tablet by mouth every 8 hours as needed for nauseaor vomiting., Disp: 60 tablet, Rfl: 2 rifAXIMin (Xifaxan) 550 MG tablet, Take 1 tablet by mouth 2 times a day., Disp: 60 tablet, Rfl: 11 senna (Senokot) 8.6 MG tablet, Take 1 tablet by mouth nightly., Disp: , Rfl: [Paused] Zegalogue 0.6 MG/0.6ML solution auto-injector, Inject 0.6 mg under the skin 1 time as needed (for extreme hypoglycemia) for up to 1 dose., Disp: 0.6 mL, Rfl: 2 zinc sulfate (Zincate) 220 (50 Zn) MG capsule, Take 1 capsule by mouth in the morning and 1 capsulebefore bedtime., Disp: 60 capsule, Rfl: 2 * Mariam Salcedo RN - 08/08/2025 10:25 AM EDT Images from the original note were not included. [id number] Discharge Instructions for Thoracentesis Thoracentesis is a [...] blood. Last Reviewed Date: 2025 00:00:00 ?? [id number] [employer] All rights reserved. This information is not intended as a substitute for professional medical care. Always follow your healthcare professional's instructions. * John OnFHTHEO - Mariam Thomas RN - 08/08/2025 10:24 AM EDT Images from the original note were not included. [id number] Discharge Instructions for Paracentesis Paracentesis is a [...] fainting. Last Reviewed Date: 2025 00:00:00 ?? [id number] [employer] All rights reserved. This information is not intended as a substitute for professional medical care. Always follow your healthcare professional's instructions. documented in this encounter Plan of Treatment Upcoming Encounters Date Type Department Care Team (Late st Contact Info) Description 08/20/2025 9:30 AM EDT Clinical Support [facility] [address] [place] [address] 08/20/2025 10:30 AM EDT Social Work [facility] [address] [place] [phone] Deysi Ortega [place], [place] [id number] 08/20/2025 11:00 AM EDT Office Visit [facility] [address] [facility] [address] [place] [address] Jude Duque MD [address] [facility] [address] [place] [address] 08/22/2025 11:15 AM EDT Appointment [facility] Inter[facility] Radiology [address] [place] [id number] 08/22/2025 12:15 PM EDT Appointment [facility] Inter[facility] Radiology [address] [place] [phone] 08/26/2025 1:00 PM EDT Office Visit [facility] [address] [place] [phone] Miranda Hobson P, STAMP REDEMPTION CLERK [address] [facility] [address] [place] [address] 08/29/2025 10:00 AM EDT Appointment [facility] Inter[facility] Radiology [address] [place] [phone] 08/29/2025 11:00 AM EDT Appointment [facility]iology [address] [place] [address] 09/05/2025 10:00 AM EDT Appointment [facility] Inter[facility] Radiology [address] [place] [address] 09/05/2025 11:00 AM EDT Appointment [facility] Inter[facility] Radiology [address] [place] [address] documented as of this encounter Procedures Procedure Name Priority Date/Time Associated Diagnosis Comments XR CHEST 1 VIEW STAT 08/08/2025 2:54 PM EDT POCT GLUCOSE METER UNSOLICITED RESULTS Routine 08/08/2025 1:42 PM EDT US GUIDED ABDOMINAL PARACENTESIS Routine 08/08/2025 12:19 PM EDT Other ascites US GUIDED THORACENTESIS Routine 08/08/20 12:19 PM EDT Other ascites BODY FLUID CELL COUNT W/ MANUAL DIFFERENTIAL Routine 08/08/2025 11:32 AM EDT BODY FLUID, CYTOSPIN, PATHOLOGIST INTERPRETATION Routine 08/08/2025 11:32 AM EDT TOTAL PROTEIN, PERITONEAL FLUID Routine 08/08/2025 11:32 AM EDT GLUCOSE, PERITONEAL FLUID Routine 08/08/2025 11:32 AM EDT documented in this encounter Results * XR Chest 1 View (08/08/2025 2:54 PM EDT) Anatomical Region Laterality Modality Chest Digital Radiogra phy Impressions 08/08/2025 3:10 PM EDT Improved aeration of right lung base with decreased pleural effusion. CRITICAL RESULT: No. COMMUNICATION: Per this written report. By electronically signing this report, I, the attending physician, attest that I have personally reviewed the images/data for the above examination(s) and agree with the final edited report. Drafted by Kt Terry MD on 08/08/2025 2:57 PM Final report signed by Darryn Santana MD on 08/08/2025 3:10 PM Narrative 08/08/2025 3:10 PM EDT CLINICAL INDICATION: s/p right thoracentesis TECHNIQUE: XR CHEST 1 VIEW COMPARISON: Chest radiograph 08/01/2025 FINDINGS: Cardiac and mediastinal silhouette stable. No pneumothorax. Decreased right pleural effusion. Improved aeration right lung base. No focal airspace disease. Procedure Note Darryn Santana MD - 08/08/2025 CLINICAL INDICATION: s/p right thoracentesis TECHNIQUE: XR CHEST 1 VIEW COMPARISON: Chest radiograph 08/01/2025 FINDINGS: Cardiac and mediastinal silhouette stable. No pneumothorax. Decreasedright pleural effusion. Improved aeration right lung base. No focalairspace disease. IMPRESSION: Improved aeration of right lung base with decreased pleural effusion. CRITICAL RESULT: No. COMMUNICATION: Per this written report. By electronically signing this report, I, the attending physician, attestthat I have personally reviewed the images/data for the aboveexamination(s) and agree with the final edited report. Drafted by Kt Terry MD on 08/08/2025 2:57 PM Final report signed by Darryn Santana MD on 08/08/2025 3:10 PM Shaniqua Mccurdy STAMP REDEMPTION CLERK IMG XR PROCEDURES Final Resu lt * (ABNORMAL) POCT glucose meter (08/08/2025 1:42 PM EDT) POCT Glucose 294(H) 74 - 99 mg/dL 08/08/2025 1:44 PM EDT [facility] Comment:Accuracy of a glucos e result obtained from a capillary whole blood specimen relies upon adequate, non-compromised capillary blood flow. If the capillary glucose result is not consistent with the patient's clinical signs and symptoms, glucose testing should be repeated with either an arterial or venous sample on the glucometer or sent to the main labortory for testing. Comment 08/08/2025 1:44 PM EDT [facility] Package Line Relief Operator ID SulyLakelandMariam lundy Filipe 08/08/2025 1:44 PM EDT [facility] Device ID [id number] 08/08/2025 1:44 PM EDT [facility] Specimen Type POC Capillary 08/08/2025 1:44 PM EDT [facility] Blood Capillary blood specimen / Unknown 08/08/2025 1:42 PM EDT 08/08/2025 1:44 PM EDT us Mariam Thomas LCAC OPERATOR POINT OF CARE T EST DOCKED DEVICE UNSOLICITED RESULTS Final Result [facility] [address] [place] [address] * US Guided Thoracentesis (08/08/2025 12:19 PM EDT) Anatomical Region Laterality Modality Chest Ultrasound Impressions 08/08/2025 1:58 PM EDT Technically successful ultrasound guided thoracentesis. A total of 1.8 L of clear yellow fluid was removed. A sample of the fluid was sent for laboratory analysis. CRITICAL RESULT: No. COMMUNICATION: Per this written report. Preliminary report signed by SOLANGE Singleton on 08/08/2025 1:53 PM By electronically signing this report, I, the attending physician, attest that I was not present for the procedure(s) but agree with the final edited report. Drafted by SOLANGE Singelton on 08/08/2025 1:51 PM Final report signed by Marcel Magaña MD on 08/08/2025 1:58 PM Narrative 08/08/2025 1:58 PM EDT CLINICAL INDICATION: 64 year old female with decompensated cirrhosis with ascites and hepatic hydrothorax. TECHNIQUE: Kids [employer] Attendant: Shaniqua Mccurdy APRN Secondary Package Line Relief Operator: None. Rad Dose: NA Medications: Continuous physiologic monitoring provided by a qualified healthcare professional. Administered: 1% Lidocaine SQ. Antibiotics: NA Time out: 1128 Procedure: After discussion of risks and benefits, [...] permanent storage in PACS. A total of 1.8 L of clear yellow fluid was removed. The needle was removed and occlusive dressing applied. The patient tolerated the procedure well. The patient left the IR suite in stable condition. COMPARISON: None. FINDINGS: Large right pleural effusion. COMPLICATION: No. Procedure Note Marcel Magaña MD - 08/08/2025 CLINICAL INDICATION: 64 year old female with decompensated cirrhosis with ascites and hepatichydrothorax. TECHNIQUE: [employer] Attendant: Shaniqua Mccurdy APRN Secondary Package Line Relief Operator: None. Rad Dose: NA Medications: Continuous physiologic monitoring provided by a qualifiedhealthcare professional. Administered: 1% Lidocaine SQ. Antibiotics: NA Time out: 1128 Procedure: After discussion of risks and benefits, [...] to permanentstorage in PACS. A total of 1.8 L of clear yellow fluid was removed. Theneedle was removed and occlusive dressing applied. The patient tolerated the procedure well. The patient left the IR suitein stable condition. COMPARISON: None. FINDINGS: Large right pleural effusion. COMPLICATION: No. IMPRESSION: Technically successful ultrasound guided thoracentesis. A total of 1.8 L of clear yellow fluid was removed. A sample of the fluid was sent for laboratory analysis. CRITICAL RESULT: No. COMMUNICATION: Per this written report. Preliminary report signed by SOLANGE Singleton on 08/08/2025 1:53 PM By electronically signing this report, I, the attending physician, attestthat I was not present for the procedure(s) but agree with the finaledited report. Drafted by SOLANGE Singleton on 08/08/2025 1:51 PM Final report signed by Marcel Magaña MD on 08/08/2025 1:58 PM us Marianna Dixon Ochoaevelyn STAMP REDEMPTION CLERK IMG US PROCEDURES Final Resu lt * US Guided Abdominal Paracentesis (08/08/2025 12:19 PM EDT) Anatomical Region Laterality Modality Abdomen Ultrasound Impressions 08/08/2025 1:52 PM EDT Technically successful US-guided paracentesis. A total of 4.2 liters of clear yellow fluid was removed. A sample of the fluid was sent for laboratory analysis. Administered Albumin 37.5 g IV once post procedure CRITICAL RESULT: No. COMMUNICATION: Per this written report. Preliminary report signed by SOLANGE Singleton on 08/08/2025 1:51 PM By electronically signing this report, I, the attending physician, attest that I was not present for the procedure(s) but agree with the final edited report. Drafted by OSLANGE Singleton on 08/08/2025 1:49 PM Final report signed by Marcel Magaña MD on 08/08/2025 1:52 PM Narrative 08/08/2025 1:52 PM EDT CLINICAL INDICATION: 64 year old female with a past medical history of decompensated cirrhosis with hepatic hydrothorax and ascites. TECHNIQUE: [employer] Attendant: Shaniqua Mccurdy APRN Secondary Package Line Relief Operator: None. Rad Dose: NA Medications: Continuous physiologic monitoring provided by a qualified healthcare professional. Administered: 1% Lidocaine SQ. Antibiotics: NA Time out: 1128 Procedure: After discussion of risks and benefits, [...] permanent storage in PACS. A total of 4.2 liters of clear yellow fluid was removed. The centesis catheter was removed and occlusive dressing applied. The patient tolerated the procedure well. The patient left the IR suite in stable condition. COMPARISON: None. FINDINGS: Moderate volume ascites. COMPLICATION: No. Procedure Note Marcel Magaña MD - 08/08/2025 CLINICAL INDICATION: 64 year old female with a past medical history of decompensated cirrhosiswith hepatic hydrothorax and ascites. TECHNIQUE: [employer] Attendant: Shaniqua Mccurdy APRN Secondary Package Line Relief Operator: Aparna. Rad Dose: NA Medications: Continuous physiologic monitoring provided by a qualifiedhealthcare professional. Administered: 1% Lidocaine SQ. Antibiotics: NA Time out: 1128 Procedure: After discussion of risks and benefits, [...] to permanentstorage in PACS. A total of 4.2 liters of clear yellow fluid was removed.The centesis catheter was removed and occlusive dressing applied. The patient tolerated the procedure well. The patient left the IR suitein stable condition. COMPARISON: None. FINDINGS: Moderate volume ascites. COMPLICATION: No. IMPRESSION: Technically successful US-guided paracentesis. A total of 4.2 liters of clear yellow fluid was removed. A sample of the fluid was sent for laboratory analysis. Administered Albumin 37.5 g IV once post procedure CRITICAL RESULT: No. COMMUNICATION: Per this written report. Preliminary report signed by SOLANGE Singleton on 08/08/2025 1:51 PM By electronically signing this report, I, the attending physician, attestthat I was not present for the procedure(s) but agree with the finaledited report. Drafted by SOLANGE Singleton on 08/08/2025 1:49 PM Final report signed by Marcel Magaña MD on 08/08/2025 1:52 PM us Marianna Gordon STAMP REDEMPTION CLERK IMG US PROCEDURES Final Resu lt * Body fluid, cytospin, pathologist interpretation (08/08/2025 11:32 AM EDT) Specimen Type Body Fluid LAB HEMATOLOGY METHOD 08/09/2025 5:55 PM EDT [facility] Specimen Source, Body Fluid Peritoneal Fluid LAB HEMATOLOGY METHOD 08/09/2025 5:55 PM EDT [facility] Clinical Diagnosis, Body Fluid Decompensated cirrhosis MASH, Ascites LAB HEMATOLOGY METHOD 08/09/2025 5:55 PM EDT [facility] Interpretation , Body Fluid No evidence of malignancy Chronic inflammatory cells Lymphocytosis Light blood A resident was involved in the service. I attest I examined the relevant preparations for the specimens and confirmed the diagnosis or interpretation. 08/09/2025 5:55 PM EDT [facility] Pathologist Signature, Body Fluid 08/09/2025 5:55 PM EDT [facility] Comment:Reviewed by: Kadie dobbs MD LAB CP ASR DISCLAIMER Yes 08/09/2025 5:55 PM EDT [facility] Body Fluid Peritoneal fluid / Unknown Non-blood Collection / Unknown 08/08/2025 11:32 AM EDT 08/08/2025 2:47 PM EDT us Shaniqua Mccurdy STAMP REDEMPTION CLERK LAB BODY FLUIDS AND STOOLS O RDERABLES Final Result [facility] [address] [place] [address] * Glucose - Ascites (08/08/2025 11:32 AM EDT) Glucose, Fluid 317 mg/dL 08/08/2025 3:30 PM EDT [facility] Peritoneal Fluid Peritoneal cavity structure / Unknown Non-blood Collection / Unknown 08/08/2025 11:32 AM EDT 08/08/2025 2:47 PM EDT Narrative [facility] - 08/08/2025 3:30 PM EDT Peritoneal/Ascites No established reference interval. [...] 3) Glucose < 50 mg/dL. Shaniqua Mccurdy STAMP REDEMPTION CLERK LAB BODY FLUIDS AND STOOLS O RDERABLES Final Result Performing Organization Address City/[facility]/ZIP Co de Phone Number [facility] [address] [place] [address] * Protein - Ascites (08/08/2025 11:32 AM EDT) Total Protein, Fluid 0.9 g/dL 08/08/2025 3:30 PM EDT [facility] Peritoneal Fluid Peritoneal cavity structure / Unknown Non-blood Collection / Unknown 08/08/2025 11:32 AM EDT 08/08/2025 2:47 PM EDT Narrative [facility] - 08/08/2025 3:30 PM EDT This test was developed and its performance characteristics determined by [facility]. The U.S. Food and Drug Administration has not approved or cleared this test. However, FDA clearance or approval is not currently required for clinical use. The results are not intended to be used as the sole means for clinical diagnosis or patient management decisions. Shaniqua Mccurdy STAMP REDEMPTION CLERK LAB BODY FLUIDS AND STOOLS O RDERABLES Final Result [facility] [address] [place] [address] * (ABNORMAL) Body Fluid Cell Count With Diff - Ascites (08/08/2025 11:32 AM EDT) Color, Body fluid Yellow LAB HEMATOLOGY METHOD 08/08/2025 4:39 PM EDT [facility] Appearance, Body fluid Cloudy(A) LAB HEMATOLOGY METHOD 08/08/2025 4:39 PM EDT [facility] Volume, Body fluid 8.0 cc LAB HEMATOLOGY METHOD 08/08/2025 4:39 PM EDT [facility] Fluid Container Tube 3 LAB HEMATOLOGY METHOD 08/08/2025 4:39 PM EDT [facility] Red Blood Cell Count, Body fluid 4,000 uL LAB HEMATOLOGY METHOD 08/08/2025 4:39 PM EDT [facility] Total Nucleated Cell Count, Body fluid 122 uL LAB HEMATOLOGY METHOD 08/08/2025 4:39 PM EDT [facility] Neutrophils %, Body fluid 2 % LAB HEMATOLOGY METHOD 08/08/2025 4:39 PM EDT [facility] Lymphocytes %, Body fluid 93 % LAB HEMATOLOGY METHOD 08/08/2025 4:39 PM EDT [facility] Monocytes/Macro phages %, Body fluid 5 % LAB HEMATOLOGY METHOD 08/08/2025 4:39 PM EDT [facility] Eosinophils %, Body fluid 0 % LAB HEMATOLOGY METHOD 08/08/2025 4:39 PM EDT [facility] Lining/Mesothel ial Cells %, Body fluid 0 % LAB HEMATOLOGY METHOD 08/08/2025 4:39 PM EDT [facility] Neutrophils Absolute (PMN), Body fluid 2 uL LAB HEMATOLOGY METHOD 08/08/2025 4:39 PM EDT [facility] Lymphocytes Absolute, Body fluid 113 uL LAB HEMATOLOGY METHOD 08/08/2025 4:39 PM EDT [facility] Monocytes/Macro phages Absolute, Body fluid 6 uL LAB HEMATOLOGY METHOD 08/08/2025 4:39 PM EDT [facility] Eosinophils Absolute, Body fluid 0 uL LAB HEMATOLOGY METHOD 08/08/2025 4:39 PM EDT [facility] Basophils Absolute, Body fluid 0 uL LAB HEMATOLOGY METHOD 08/08/2025 4:39 PM EDT [facility] Lining/Mesothel ial Cells Absolute, Body fluid 0 uL LAB HEMATOLOGY METHOD 08/08/2025 4:39 PM EDT [facility] Basophils %, Body fluid 0 % LAB HEMATOLOGY METHOD 08/08/2025 4:39 PM EDT [facility] Body Fluid Peritoneal fluid / Unknown Non-blood Collection / Unknown 08/08/2025 11:32 AM EDT 08/08/2025 2:47 PM EDT us Shaniqua Mccurdy STAMP REDEMPTION CLERK LAB BODY FLUIDS AND STOOLS ORDERABLES NO SPECIMEN TYPE/SOURCE Final Result [facility] [address] [place] [address] documented in this encounter Visit Diagnoses Diagnosis Other ascites documented in this encounter Administered Medications Inactive Administered Medications - up to 3 most recent administrations Medication Order MAR Action Action Date Dose Rate Site albumin human 25 % infusion 37.5 g 37.5 g, Intravenous, Once as needed, 1 dose, Starting on Sarahi 08/08/25 at 0913, Until Sarahi 08/08/25 at 1139, Routine, Intraprocedure, For 5-6.9 L drained New Bag 08/08/2025 11:39 AM EDT 37.5 g lidocaine 0.9% in sodium bicarbonate (buffered lidocaine) solution solution As needed, Starting on Tue08/08/25 at 1129, Until Tue08/08/25 at 1129, Routine, Intraprocedure Given 08/08/2025 11:29 AM EDT 10 mL ondansetron (Zofran) injection 4 mg 4 mg, Intravenous, Every 6 hours PRN, Starting on Sarahi 08/08/25 at 1014, Until Tue08/09/25 at 0239, Routine, On Unit - Preprocedure, vomiting, nausea Given 08/08/2025 10:32 AM EDT 4 mg documented in this encounter Additional Health Concerns Assessment Noted Time PHQ-9 Depression Total Score: 6 06/11/20 10:59 AM EDT A fall risk assessment has been complete d for the patient 06/25/2025 12:59 PM EDT A Body Mass Index follow-up plan has been documented for the patient 08/08/2025 3:09 PM EDT documented as of this encounter Care Teams Bakery Clerk Relationship Specialty Start Date End Date Alvarez Zimmer MD [address] [place] [address] PCP - General Family Medicine 12/07/24 Lea Fernando [address] [facility] [address] [place] [address] Scrap Dealer Endocrinology 08/29/24 Rachel Ray APRN [address] [place] [phone] Nurse Practitioner Gastroenterology 09/24/24 Tamera Isabel LPN VALUE-BASED TRANSFORMATION PROGRAM Licensed Practical Nurse 05/29/25 Monique Tapia LPN [employer] [place] [address] TCM Nurse 07/10/25 08/09/25 documented as of this encounter
--- OUTSIDE RECORDS SUMMARY | 2025-08-08 14:27 | XMS_ITS | Encounter Summary ---
Author Organization [facility] Address [address] [place] [address] Care Team Providers Care And Taxi Instructor Bus Trolley Name Role Phone Lea Fernando Unavailable [phone] Rachel Ray LUMBER ESTIMATOR Unavailable [phone] Alvarez Zimmer MD Primary Care Provider [phone] Tamera Isabel GYM SUPERVISOR Unavailable Unavailabl Monique Garay GYM SUPERVISOR Unavailable Unavailable Encounter Details Date Type Department Care Team (Latest Contact Info) Description 08/08/2025 2:27 PM EDT - 08/08/2025 11:59 PM EDT Hospital Encounter [facility] Radiology [address] [place] [address] Discharge Disposition: Home or Self Care Social [...] you attend [facility] or yarsanism services? Patient unable to answer 01/10/2025 Do you belong to any clubs o r organizations such as taoism groups, unions, [employer] or athletic groups, or school groups? Patient [...] more drinks on one occasion? Never 06/25/2025 [facility] - Occupational Stress Questionnaire [...] first t kennedy in the morning (EYE-MEDICAL TECH) to steady your nerves or to get rid of a hangover? 0 06/25/2025 CAGE Questionnaire Score 0 025 Utilities Answer Date Recorded In the past 12 months has th e [employer], gas, oil, or water [employer] threatened to shut off services in your [...] (Past 1 Month) No 08/08/2025 10:00 AM Mariam Minaya RN 2. Non-Specific Active Suici liz Thoughts (Past 1 Month) No 08/08/2025 10:00 AM TAMMYT Bay Thomas RN 6. Suicidal Behavior (Lifetime) No 10:00 AM Mariam Minaya RN documented as of this encounter Medications at [...] 1 03/01/2025 ergocalciferol (Vitamin D-2) 1.25 MG (32921 UT) capsuleIndication s:Vitamin D deficiency Take 1 [...] Description 08/20/2025 9:30 AM EDT Clinical Support [facility] [address] [facility] [address] [place] [address] 08/20/2025 10:30 AM EDT Social Work [facility] [place] [address] [facility] [address] [place] [address] Deysi Ortega [place], [place] [phone] 08/20/2025 11:00 AM EDT Office Visit [facility] [place] [address] [facility] [address] [place] [address] Jude Duque MD [address] [facility] [address] [place] [address] 08/22/2025 11:15 AM EDT Appointment [facility] Interventional Radiology [address] [place] [phone] 08/22/2025 12:15 PM EDT Appointment [facility] Interventional Radiology [address] [place] [address] 08/26/2025 1:00 PM EDT Office Visit [facility] Endocrinology [address] [place] [address] Miranda Hobson P, LUMBER ESTIMATOR [address] [facility] [address] [place] [address] 08/29/2025 10:00 AM EDT Appointment [facility] Interventional Radiology [address] [place] [address] 08/29/2025 11:00 AM EDT Appointment [facility] Inter[facility] Radiology [address] [place] [address] 09/05/2025 10:00 AM EDT Appointment [facility] Interventional Radiology [address] [place] [address] 09/05/2025 11:00 AM EDT Appointment [facility] Interventional Radiology [address] [place] [address] documented as of this encounter Procedures Procedure Name Priority Date/Time Associated Diagnosis Comments XR CHEST 1 VIEW STAT 08/08/2025 2:54 PM EDT documented in this encounter Results [...] on 08/08/2025 3:10 PM us Shaniqua Mccurdy LUMBER ESTIMATOR IMG XR PROCEDURES Final Resu lt documented in this encounter Visit Diagnoses Not on filedocumented in this encounter Additional Health Concerns Assessment Noted Time PHQ-9 Depression Total Score: 6 07/22/20 25 10:59 AM EDT A fall risk assessment has been complete d for the patient 06/25/2025 12:59 PM EDT A Body Mass Index follow-up plan has been documented for the patient 08/08/2025 3:09 PM EDT documented as of this encounter Care Teams And Taxi Instructor Bus Trolley Relationship Specialty Start Date End Date Alvarez Zimmer MD [address] [place] [address] PCP - General Family Medicine 12/07/24 Lea Fernando [address] [place] [address] Segmental Paver Installer Endocrinology 08/29/24 Rachel Ray, LUMBER ESTIMATOR [address] [place] [address] Nurse Practitioner Gastroenterology 09/24/24 Tamera Isabel LPN VALUE-BASED TRANSFORMATION PROGRAM Licensed Practical Nurse 05/29/25 Monique Tapia LPN VALUE-BASED [place] [address] TCM Nurse 07/10/25 08/09/25 documented as of this encounter
--- OUTSIDE RECORDS SUMMARY | 2025-08-15 08:47 | XMS_ITS | Encounter Summary ---
Author Organization [facility] Address [address] [place] [address] Care Team Providers Care Business Performance Advisor Name Role Phone Lea Fernando Unavailable [phone] Rachel Ray APRN Unavailable [phone] Alvarez Zimmer MD Primary Care Provider [phone] Tamera Isabel LPN Unavailable Unavailabl e Reason for Referral * Clinic-Administered Medication (Routine) - Closed Specialty Diagnoses / Procedures Referred By Eder zhu Referred To Contact Diagnoses Other ascites Procedures MO ABDOM PARACENTESIS DX/THER W IMAGING GUIDANCE Micheal Glasgow APRN, DNP [address] [place] [address] Phone: tel: fax: [facility] [address] [place] [address] Phone: tel: fax: Referral ID Status Reason Start Date Expiration Date Visits Re quested Visits Authorized [id number] Closed 2025 02/14/2027 1 1 * Imaging (Routine) - Closed Specialty Diagnoses / Procedures Referred By Contherbert t Referred To Contact Radiology Diagnoses Alcoholic cirrhosis of liver with ascites Procedures US Guided Abdominal Paracentesis Marianna Gordon APRN [address] [place] [address] Phone: tel: fax: Referral ID Status Reason Start Date Expiration Date Visits Re quested Visits Authorized [id number] Closed 07/25/2025 01/24/2027 1 1 Reason for Visit * Imaging (Routine) - Closed Specialty Diagnoses / Procedures Referred By Eder zhu Referred To Contact Radiology Diagnoses Alcoholic cirrhosis of liver with ascites Procedures US Guided Abdominal Paracentesis Marianna Gordon APRN [address] [place] [address] Phone: tel: fax: Referral ID Status Reason Start Date Expiration Date Visits Re quested Visits Authorized [id number] Closed 07/25/2025 01/24/2027 1 1 Encounter Details Date Type Department Care Team (Latest Contact Info) Description 2025 8:47 AM EDT - 2025 11:59 PM EDT Hospital Encounter [facility] Interventional Radiology [address] [place] [address] Kami Cool RN HOSPTIAL YOUTH CORRECTIONS OFFICER RECOVERY Alcoholic cirrhosis of liver with ascites [...] you attend [facility] or islam services? Patient unable to answer [...] you attend chur ch or islam services? Never 05/29/2025 Do you [...] drink first t kennedy in the morning (EYE-SHOWER ROOM ATTENDANT) to steady your nerves or to get rid of a hangover? 0 06/25/2025 CAGE Questionnaire Score 0 025 Utilities Answer Date Recorded In the past 12 months has th e [employer], gas, oil, or water [employer] threatened to shut off services in your [...] 1 03/01/2025 ergocalciferol (Vitamin D-2) 1.25 MG (42144 UT) capsuleIndication s:Vitamin D deficiency Take 1 [...] is no recent study available for direct cbue-dk-ejpw comparison. Assessment & Plan: Decompensated cirrhosis, MASH [...] the care of this patient. Shaniqua Mccurdy, QUARTZ CUTTER Interventional Radiology [phone] [1] Past Medical History: Diagnosis Date ADHD (attention deficit hyperactivity disorder) Allergic Anxiety disorder, unspecified Anxiety Bleeding gums Blood in urine Cataract Chronic kidney disease Cirrhosis (CMS/HCC) Colon cancer screening 09/20/2019 Added automatically from request for surgery [id number] Coronary artery disease Depression 1995 Diabetes mellitus type 2 in obese 04/22/2015 Diabetic nephropathy ([facility]/HCC) Dry mouth Epigastric pain 08/02/2019 ETD (eustachian [...] 1979 BLADDER SURGERY N/A Bladder surgery from [facility] BREAST BIOPSY 2011 BREAST SURGERY 2010 BUNIONECTOMY Right CATARACT EXTRACTION Bilateral 2016 CHOLECYSTECTOMY 1979 ESOPHAGOGASTRODUODENOSCOPY HYSTERECTOMY N/A Hysterectomy from [facility] KNEE SURGERY Bilateral ORAL SURGERY N/A Oral surgery from [facility] OTHER SURGICAL HISTORY 2015 ROOT CANAL WISDOM [...] Rfl: 1 ergocalciferol (Vitamin D-2) 1.25 MG (38428 UT) capsule, Take 1 capsule by mouth [...] Description 08/20/2025 9:30 AM EDT Clinical Support [facility] [place] [address] [place] [address] 08/20/2025 10:30 AM EDT Social Work [facility] [place] [address] [place] [address] Deysi Ortega [place], [place] [id number] 08/20/2025 11:00 AM EDT Office Visit [facility] [place] [address] [place] [address] Jude Duque MD [address] [facility] [address] [place] [address] 08/22/2025 11:15 AM EDT Appointment [facility] Interventional Radiology [address] [place] [address] 08/22/2025 12:15 PM EDT Appointment [facility] Interventional Radiology [address] [place] [address] 08/26/2025 1:00 PM EDT Office Visit [facility] Endocrinology [address] [place] [address] Miranda Hobson P, QUARTZ CUTTER [address] [facility] [address] [place] [address] 08/29/2025 10:00 AM EDT Appointment [facility] Interventional Radiology [address] [place] [address] 08/29/2025 11:00 AM EDT Appointment [facility] Interventional Radiology [address] [place] [address] 09/05/2025 10:00 AM EDT Appointment [facility] Interventional Radiology [address] [place] [address] 09/05/2025 11:00 AM EDT Appointment [facility] Interventional Radiology [address] [place] [address] documented as of this encounter Procedures Procedure [...] hepatic hydrothorax. Patient presents for thoracentesis. TECHNIQUE: Health Insurance Specialist: ADRI Glasgow Procedure: Limited chest ultrasound completed [...] intermittenthepatic hydrothorax. Patient presents for thoracentesis. TECHNIQUE: Health Insurance Specialist: ADRI Glasgow Procedure: Limited chest ultrasound completed [...] hepatic hydrothorax. Patient presents for paracentesis. TECHNIQUE: Health Insurance Specialist: ADRI Glasgow Secondary Charge Machine Operator: None. Rad Dose: NA Medications: Continuous [...] intermittenthepatic hydrothorax. Patient presents for paracentesis. TECHNIQUE: Health Insurance Specialist: ADRI Glasgow Secondary Charge Machine Operator: None. Rad Dose: NA Medications: Continuous [...] Fluid 0.8 g/dL 2025 11:55 AM EDT [facility] Peritoneal Fluid Peritoneal cavity structure / Unknown Non-blood Collection / Unknown 2025 9:25 AM EDT 2025 10:45 AM EDT Narrative [facility] - 2025 11:55 AM EDT This test was developed and its performance characteristics determined by [facility]. The U.S. Food and Drug Administration has not approved or cleared this test. However, FDA clearance or approval is not currently required for clinical use. The results are not intended to be used as the sole means for clinical diagnosis or patient management decisions. us Micheal E Pee QUARTZ CUTTER, DNP LAB BODY FLUIDS AND ST OOLS ORDERABLES Final Result [facility] [address] [place] [address] * (ABNORMAL) Body Fluid Cell Count W/O Diff (2025 9:25 AM EDT) Specimen Source, Body Fluid Peritoneal Fluid 2025 2:25 PM EDT [facility] Specimen Type Body Fluid 2025 2:25 PM EDT [facility] Color, Body fluid Yellow LAB HEMATOLOGY METHOD 2025 2:25 PM EDT [facility] Appearance, Body fluid Cloudy(A) LAB HEMATOLOGY METHOD 2025 2:25 PM EDT [facility] Volume, Body fluid 45.0 cc LAB HEMATOLOGY METHOD 2025 2:25 PM EDT [facility] Red Blood Cell Count, Body fluid 4,000 uL LAB HEMATOLOGY METHOD 2025 2:25 PM EDT [facility] Total Nucleated Cell Count, Body fluid 129 uL LAB HEMATOLOGY METHOD 2025 2:25 PM EDT [facility] Fluid Container Specimen received in miscellaneous container LAB HEMATOLOGY METHOD 2025 2:25 PM EDT [facility] Body Fluid Peritoneal fluid / Unknown Non-blood Collection / Unknown 2025 9:25 AM EDT 2025 10:44 AM EDT us Micheal E Pee QUARTZ CUTTER, DNP LAB BODY FLUIDS AND ST OOLS ORDERABLES Final Result [facility] [address] [place] [address] documented in this encounter Visit Diagnoses Diagnosis [...] as of this encounter Care Teams Business Performance Advisor Relationship Specialty Start Date End Date Alvarez Zimmer MD [address] [place] [address] PCP - General Family Medicine 12/07/24 Lea Fernando [address] [place] [address] E Commerce Web Developer Endocrinology 08/29/24 Rachel Ray APRN [address] [place] [address] Nurse Practitioner Gastroenterology 09/24/24 Tamera Isabel LPN VALUE-BASED TRANSFORMATION PROGRAM Licensed Practical Nurse 05/29/25 documented as of this encounter
[2025-08-17] VITALS (29 sets, daily range): BP systolic 79–165; BP diastolic 44–140; PULSE 37–85; RESP 12–19; TEMP 36.8; O2SAT 94–100; BMI 26.5
--- NOTE | 2025-08-17 15:14 | ED_ITS ---
Discharge Plan Disposition Patient Disposition: Xfer Other Condition: Good Referrals Follow up/Referrals: Bari Giraldo MD [Primary Care Provider, Internal Medicine] - See instructions Clinical Impressions Clinical Impression: CARLOTTA (acute kidney injury), Decompensated cirrhosis Instructions Patient Instructions: DI for Altered Mental Status Print Language Print Language: Romanian Discharge ED Provider: Rowan Castellano General Adult HPI General Chief complaint: Altered Mental Status Stated complaint: AMS Time Seen by Provider: 08/17/25 15:13 History of Present Illness HPI narrative: Patient is a 65-year-old female with a past medical history of decompensated liver cirrhosis who follows with the liver transplant team at who presents to the emergency department with altered mental status. Patient gets weekly paracenteses done at and got 6.5 L off. Patient does have a history of SBP and is on daily ciprofloxacin. Family states that patient was seen on for her birthday and was much more alert and interactive and since that time she has become more altered. They state that she was not texting back today so they went to the nursing facility and she was only alert and oriented times herself. Patient is not complaining of any chest pain shortness of breath abdominal pain nausea vomiting or diarrhea. Patient denies any headache or vision changes or other associated symptoms. Family states that they do not think she has had any falls. Patient does have a history of high ammonia and has required treatment for this in the past. Follows with liver team, but is currently not on the transplant list given that she is currently living in a nursing facility. Related Data Allergies Allergy/AdvReac Type Severity Reaction Status Date / Time No Known Allergies Allergy Verified 06/23/25 17:54 [facility] Disclaimer: The information contained in this section may have been updated after the patient was seen, as this information can be updated by other users. Social History (Updated 06/23/25 @ 21:33 by Kandice Maldonado APRN) Smoking Status: Unknown if ever smoked alcohol intake: never current occupational status: unemployed Travel in the last 8 weeks?: None Have you lived/traveled outside US in past 30 days?: No Contact w/someone who lives/traveled outside US past 30 days?: No Exposure to someone with infectious disease in past 14 days?: No Do you have a fever (greater than 100.4 F or 38 C)?: No Have you tested positive for COVID-19?: No Exposed to someone with COVID-19 in past 14 days?: No Do you have a sore throat?: No Do you have a cough?: No Do you have any weakness?: No Do you have any diarrhea?: No Are you experiencing any unusual bleeding?: No Do you have any muscle aches/pain?: No Do you have any abdominal pain?: No Are you experiencing loss of taste or smell?: No ROS Obtained: Yes All systems reviewed & no additional complaints except as documented and Yes Systems reviewed as appropriate & no additional complaints except as documented Physical Exam General General appearance: alert and in no apparent distress Head Head exam: atraumatic, normocephalic and normal inspection Eye Eye exam: Present normal appearance, PERRL and EOMI; Absent scleral icterus ENT ENT exam: Present normal exam and normal external ear exam Neck Neck exam: Present normal inspection and full ROM Chest Chest inspection: Present normal inspection and symmetric chest wall rise Respiratory Respiratory exam: Present normal lung sounds bilaterally; Absent respiratory distress or wheezes Cardiovascular Cardiovascular exam: Present normal rhythm, bradycardia and normal heart sounds Abdominal Exam Abdominal exam: Present soft and distention (small fluid wave); Absent tenderness, guarding or rebound Extremities Exam Extremities exam: Present normal inspection and full ROM Back Exam Back exam: Present normal inspection and full ROM Neurological Exam Neurological exam: Present alert and oriented X3 Psychiatric Psychiatric exam: Present normal affect and normal mood Skin Skin exam: Present warm and dry Medical Decision Making Medical Records Medical records reviewed: Yes I reviewed the patient's medical records. Screening: Per USPSTF and CDC recommendations, given the prevalence of disease in our region, it is our hospital?s policy to screen for HIV and viral Hepatitis for all patients aged 18 and over and those with ongoing risk factors. Valente Inquiry Pt receiving controlled substance: No Vital Signs: 08/17/25 15:16 08/17/25 15:32 08/17/25 16:00 Temperature 98.3 F Temperature Source Axillary Pulse Rate 59 L 85 Pulse Rate [Right] 49 L Respiratory Rate 18 17 15 Blood Pressure 104/53 L 115/77 Blood Pressure [Right Arm] 165/140 H Blood Pressure Mean [Right Arm] 148 02 Sat by Pulse Oximetry 98 99 99 Oxygen Delivery Method Room Air 08/17/25 17:04 08/17/25 17:30 08/17/25 18:01 Temperature Temperature Source Pulse Rate 37 L 64 66 Pulse Rate [Right] Respiratory Rate 16 12 15 Blood Pressure 110/68 101/55 L 91/45 L Blood Pressure [Right Arm] Blood Pressure Mean [Right Arm] 02 Sat by Pulse Oximetry 97 100 99 Oxygen Delivery Method Room Air 08/17/25 18:30 Temperature Temperature Source Pulse Rate 55 L Pulse Rate [Right] Respiratory Rate 13 Blood Pressure 91/62 L Blood Pressure [Right Arm] Blood Pressure Mean [Right Arm] 02 Sat by Pulse Oximetry 99 Oxygen Delivery Method Room Air Lab Data Lab results reviewed: Yes I reviewed the patient's lab results. Lab Results 08/17/25 15:12: WBC 3.4 L, RBC 3.00 L, Hgb 9.6 L, Hct 27.4 L, MCV 91.3, MCH 32.0 H, MCHC 35.0, RDW 17.6 H, Plt Count 62 L, MPV 12.1 H, Neut % (Auto) 64.3, Lymph % (Auto) 19.8, [place] % (Auto) 10.6 H, Eos % (Auto) 4.4, Baso % (Auto) 0.6, Neut # (Auto) 2.2, Lymph # (Auto) 0.7, [place] # (Auto) 0.4, Eos # (Auto) 0.2, Baso # (Auto) 0.0, PT 16.3 H, INR 1.51 H, Sodium 129 L, Potassium 4.4, Chloride 100, C arbon Dioxide 21 L, Anion Gap 12.4, BUN 41 H, Creatinine 3.00 H, Estimated Creat Clear 21, Estimated GFR 16 L*, Est GFR ( Amer) 19 L*, Glucose 308 H D, C alcium 7.3 L, Total Bilirubin 2.9 H, AST 44 H, ALT 19, Alkaline Phosphatase 290 H, Ammonia 76 H, Troponin I < 0.01, Total Protein 6.2 L, Albumin 3.0 L, Globulin 3.2, Albumin/Globulin Ratio 0.9 L, HCV Ab AQUILES w/Rflx PCR Qn Negative, HIV Ag/Ab Combo Qual Negative 08/17/25 17:20: Urine Color Yellow, Urine Appearance Cloudy, Urine pH 5.5, Ur Specific [place] 1.015, Urine Protein Negative, Urine Glucose (UA) Negative, Urine Ketones Trace, Urine Blood Trace-i, Urine Nitrate Negative, Urine Bilirubin Negative, Urine Urobilinogen 0.2, Ur Leukocyte Esterase 3+ A, Urine RBC Occasional, Urine WBC 20-50, Ur Squamous Epith Cells 10-20, Urine Bacteria 2+ 08/17/25 18:40: Troponin I < 0.01 08/17/25 15:12 08/17/25 15:12 Orders (Tests/Meds): ED MEDICATIONS Generic Name Dose Route Start Last Admin Trade Name Freq PRN Reason Stop Dose Admin Ceftriaxone Sodium 2 gm/ 100 mls @ 200 mls/hr 08/17/25 17:45 08/17/25 19:12 Sodium Chloride IV 08/27/25 17:44 Infused Q24H MEAGAN Infusion Albumin Human 12.5 gm in 50 mls @ 100 mls/hr 08/17/25 19:48 Albumin 25% (12.5gm) Soln 50ml Bag IV 08/17/25 20:47 Q30M MEAGAN Discontinued Medications Generic Name Dose Route Start Last Admin Trade Name Freq PRN Reason Stop Dose Admin Acetaminophen 500 mg 08/17/25 19:32 08/17/25 19:49 Acetaminophen 500mg Tab PO 08/17/25 19:33 500 mg ONCE ONE Administration Lactated Ringer's 500 mls @ 999 mls/hr 08/17/25 19:32 08/17/25 19:50 Lactated Ringer's 500ml IV 08/17/25 20:02 999 mls/hr .Q31M ONE Administration Lactulose 20 gm 08/17/25 19:17 08/17/25 19:26 Lactulose 20gm/30ml Udc RC 08/17/25 19:18 20 gm ONCE ONE Administration Ondansetron HCl 4 mg 08/17/25 19:32 08/17/25 19:49 Ondansetron 4mg/2ml Vial IV 08/17/25 19:33 4 mg ONCE ONE Administration ORDERS Category Date Time Status CT abdomen pelvis wo con Stat Cat Scan 08/17/25 16:[address] chest wo con Stat Cat Scan 08/17/25 16:[address] head/brain wo con Stat Cat Scan 08/17/25 16:09 Completed CXR --portable [XR chest portable] Stat Exams 08/17/25 15:55 Completed Ammonia Stat Lab 08/17/25 15:12 Completed Complete Blood Count Auto Diff Stat Lab 08/17/25 15:12 Completed Comprehensive Metabolic Panel Stat Lab 08/17/25 15:12 Completed HIV Combo Stat Lab 08/17/25 15:12 Completed Hepatitis C Ab Qual. W/ RFX Stat Lab 08/17/25 15:12 Completed Prothrombin Time INR Stat Lab 08/17/25 15:12 Completed Troponin I Q3H Lab 08/17/25 18:40 Completed Troponin I Q3H Lab 08/17/25 21:30 Ordered Troponin I Stat Lab 08/17/25 15:12 Completed Urinalysis-Acute [Urinalysis and Microscopic] Stat Lab 08/17/25 17:20 Completed Blood Culture Stat Micro 08/17/25 18:30 Received Urine Culture Stat Micro 08/17/25 17:20 Received Medical Decision Narrative: Patient is a 65-year-old female with a past medical history of decompensated cirrhosis, follows with hepatology who presented to the emergency department with altered mental status. On arrival, patient was hemodynamically stable with unremarkable vital signs. Differential includes but not limited to: Intracranial hemorrhage, intracranial ischemia, pneumonia, urinary tract infection, electrolyte abnormalities, decompensated cirrhosis, amongst others. On exam, patient was alert and oriented x 1, patient had an otherwise nonfocal neuroexam. Patient was mildly jaundice, patient had a soft nontender abdomen, pulmonary exam was unremarkable. Patient had no asterixis 6. Broad workup was done including labs, CT scans and urine. Patient's labs were reviewed and interpreted by myself: CBC showed no leukocytosis, hemoglobin was stable. INR was 1.51. CMP was notable for hyponatremia of 129, creatinine of 3. No significantly elevated liver enzymes. Initial troponin less than 0.01, second troponin less than 0.01. UA had 2+ bacteria, 20-50 white blood cells, 3+ leuk esterase. Chest x-ray was reviewed and interpreted by myself and showed small right-sided pleural effusion but no focal consolidation, pneumothorax or other acute cardiopulmonary process. EKG was reviewed and interpreted by myself and showed normal sinus rhythm without acute ST or T wave changes concerning for ischemia Patient's decreased GFR, CT head CT chest and CT abdomen were obtained without contrast. Patient CT scans were reviewed and interpreted by myself and CT head showed no acute intracranial process. CT chest showed right-sided pleural effusion but no other acute pathology. CT abdomen showed no acute pathology. Patient has a current MELD of 30. Given patient's CARLOTTA patient was given 25 of albumin and IV fluids here in the emergency department. Patient was given 2 g of Rocephin for a urinary tract infection. Blood cultures were sent. Side ultrasound was performed and patient did not have enough fluid to do a diagnostic para therefore patient could not be further evaluated for SBP at this time. I did discuss admission here at our hospital but given patient's rising creatinine and that patient follows with [facility], our hospitalist felt patient would be more warranted at a facility where dialysis could be performed if patient's creatinine continued to uptrend. Patient makes very little urine at baseline. Prior to discharge, patient was more alert and interactive than usual but patient was still only alert and oriented x 1 patient was ordered lactulose given her ammonia of 73. Critical Care Critical Care Time Critical Care Time: No
--- OUTSIDE RECORDS SUMMARY | 2025-08-17 15:18 | XMS_ITS ---
Author Organization [facility] Address [address] [place] [address] Care Team Providers Care Outside Sales Professional Name Role Phone Lea Fernando Unavailable [phone] Rachel Ray O AND M SUPERVISOR Unavailable [phone] Alvarez Zimmer MD Primary Care Provider [phone] Tamera Isabel CATERING SERVER Unavailable Unavailabl e LINK Program Status:Closed (Closed) Start date:06/26/2025 Enrollment date:06/26/2025 End date:06/26/2025 Close reason:Not Eligible Overview Patient identified for LINK program. Following chart review, patient determined to be ineligible based on program criteria. (Transplant) Continued Care and Services Coordination
--- OUTSIDE RECORDS SUMMARY | 2025-08-17 15:18 | XMS_ITS | Encounter Summary ---
Author Organization [facility] Address [address] [place] [address] Care Team Providers Care Shank Scourer Name Role Phone Lea Fernando Unavailable [phone] Rachel Ray PERFORATOR TYPIST Unavailable [phone] Alvarez Zimmer MD Primary Care Provider [phone] Tamera Isabel GARDEN CONSULTANT Unavailable UnavailAlina Bedolla RN Unavailable Unavailab Monique Che GARDEN CONSULTANT Unavailable Unavailable Reason for Visit * Reason Onset Date Comments Med Refill 05/21/2025 Encounter Details Date Type Department Care Team (Late st Contact Info) Description 05/21/2025 Refill [facility] [address], [address] [place] [address] Ar Dominique MD [address] [place] [address] Chronic kidney disease, stage 3b [...] do you attend [facility] or mormon services? Patient unable to answer [...] Recorded Patient Health Questionnaire-2 Score 1 05/07/2025 [facility] of Occupat ional Health - Occupational Stress [...] first t kennedy in the morning (EYE-GEOSPATIAL DEVELOPER) to steady your nerves or to get rid of a hangover? 0 10/22/2024 CAGE Questionnaire Score 0 024 Utilities Answer Date Recorded In the past 12 months has e [employer], gas, oil, or water company threatened to [...] Description 08/20/2025 9:30 AM EDT Clinical Support [facility] [place] [address] [place] [address] 08/20/2025 10:30 AM EDT Social Work [facility] [place] [address] [place] [address] [place] [address] 08/20/2025 11:00 AM EDT Office Visit [facility] [address] [place] [address] Jude Duque MD [address] [place] [address] 08/22/2025 11:15 AM EDT Appointment [facility] [address] [place] [address] 08/22/2025 12:15 PM EDT Appointment [facility] [address] [place] [address] 08/26/2025 1:00 PM EDT Office Visit [facility]ocrinology [address] [place] [address] Miranda Hobson, PERFORATOR TYPIST [address] [place] [address] 08/29/2025 10:00 AM EDT Appointment [facility] [address] [place] [address] 08/29/2025 11:00 AM EDT Appointment [facility] [address] [place] [address] 09/05/2025 10:00 AM EDT Appointment [facility] [address] [place] [address] 09/05/2025 11:00 AM EDT Appointment [facility] [address] [place] [address] documented as of this encounter Visit Diagnoses [...] documented as of this encounter Care Teams Shank Scourer Relationship Specialty Start Date End Date Alvarez Zimmer MD [address] [place] [address] PCP - General Family Medicine 12/07/24 Lea Fernando [address] [facility] [address] [place] [address] Personal Security Specialist Endocrinology 08/29/24 Rachel Ray, PERFORATOR TYPIST [address] [facility] [address] [place] [address] Nurse Practitioner Gastroenterology 09/24/24 Tamera Isabel LPN VALUE-BASED TRANSFORMATION PROGRAM Licensed Practical Nurse 05/29/25 Alina Lovett, RN [facility]IOLOG[facility] Registered Nurse 06/26/25 06/26/25 Monique Tapia LPN VALUE-BASED [place] [address] TCM Nurse 07/10/25 08/09/25 documented as of this encounter
--- OUTSIDE RECORDS SUMMARY | 2025-08-17 15:18 | XMS_ITS ---
Author Organization [facility] Address [address] [place] [address] Care Team Providers Care Well Puller Head Name Role Phone Lea Fernando Unavailable [phone] Rachel Ray COMPUTER SALESPERSON RETAIL Unavailable [phone] Alvarez Zimmer MD Primary Care Provider [phone] Tamera Isabel HAND FRAME SURGICAL ELASTIC KNITTER Unavailable Unavailabl e Transitional Care Management Status:Closed (Closed) Start date:07/10/2025 Enrollment reason:Identified using hospital discharge data End date:08/09/2025 Close reason:Patient graduated Overview This episode type is for outpatient care managers enrolling patients in the [facility] Transitional Care Management program. Continued Care and Services Coordination
--- OUTSIDE RECORDS SUMMARY | 2025-08-17 15:18 | XMS_ITS | Encounter Summary ---
Author Organization [facility] Address [address] [place] [address] Care Team Providers Care Caddy Name Role Phone Lea Fernando Unavailable [phone] Rachel Ray BIOASSAYIST Unavailable [phone] Alvarez Zimmer MD Primary Care Provider [phone] Tamera Isabel PLASTIC BATTERY ASSEMBLER Unavailable UnavailAlina Bedolla RN Unavailable Unavailab Monique Che PLASTIC BATTERY ASSEMBLER Unavailable Unavailable Reason for Visit * Reason Onset Date Comments Med Refill 05/21/2025 Encounter Details Date Type Department Care Team (Late st Contact Info) Description 05/21/2025 Refill [facility] [address] [place] [address] Alvarez Zimmer MD [address] [place] [address] Social History Tobacco Use Types [...] do you attend [facility] or [employer]ist services? Patient unable [...] Recorded Patient Health Questionnaire-2 Score 1 05/07/2025 [facility] of Occupat ional Health [...] drink first t kennedy in the morning (EYE-LASER OPERATOR) to steady your nerves or to get rid of a hangover? 0 10/22/2024 CAGE Questionnaire Score 0 024 Utilities Answer Date Recorded In the past 12 months has e [employer], gas, oil, or water [employer] threatened to shut off services in [...] EDT Clinical Support [facility] [place] [address] [place] [address] 08/20/2025 10:30 AM EDT Social Work [facility] [place] [address] [place] [address] [place] [address] 08/20/2025 11:00 AM EDT Office Visit [facility] [place] [address] [place] [address] Jude Duque MD [address] [place] [address] 08/22/2025 11:15 AM EDT Appointment [facility] [address] [place] [address] 08/22/2025 12:15 PM EDT Appointment [facility] [address] [place] [address] 08/26/2025 1:00 PM EDT Office Visit [facility] Endocrinology [address] [place] [address] Miranda Hobson P, BIOASSAYIST [address] [facility] [address] [place] [address] 08/29/2025 10:00 AM EDT Appointment [facility] [address] [place] [address] 08/29/2025 11:00 AM EDT Appointment [facility] [address] [place] [address] 09/05/2025 10:00 AM EDT Appointment [facility] [address] [place] [address] 09/05/2025 11:00 AM EDT Appointment [facility] [address] [place] [address] documented as of this encounter Visit Diagnoses [...] documented as of this encounter Care Teams Caddy Relationship Specialty Start Date End Date [place] [phone] PCP - General Family Medicine 12/07/24 Lea Fernando [address] [facility] [address] [place] [address] Retort Load Expediter Endocrinology 08/29/24 Rachel Ray, BIOASSAYIST [address] [place] [address] Nurse Practitioner Gastroenterology 09/24/24 Tamera Isabel LPN VALUE-BASED TRANSFORMATION PROGRAM Licensed Practical Nurse 05/29/25 Alina Lovett, RN [facility] INTERVENT[facility] RADIOLOGY Registered Nurse 06/26/25 06/26/25 Monique Tapia LPN VALUE-BASED [place] [address] TCM Nurse 07/10/25 08/09/25 documented as of this encounter
--- OUTSIDE RECORDS SUMMARY | 2025-08-17 15:18 | XMS_ITS | Encounter Summary ---
Author Organization [facility] Address [address] [place] [address] Care Team Providers Care Cell Phone Repair Technician Name Role Phone Lea Fernando Unavailable [phone] Rachel Ray DOCUMENTATION CONSULTANT Unavailable [phone] Alvarez Zimmer MD Primary Care Provider [phone] Tamera Isabel CRIME SCENE INVESTIGATOR Unavailable Unavailabl Monique Garay LPN Unavailable Unavailable [...] more drinks on one occasion? Never 06/25/2025 [facility] of Occupat ional Health - [...] drink first t kennedy in the morning (EYE-AUTOMATED LOGISTICS SPECIALIST) to steady your nerves or to [...] Clinical Support [facility] [address] [place] [address] 08/20/2025 10:30 AM EDT [address] [facility] [place] [address] [place] [address] [place] [address] 08/20/2025 11:00 AM EDT Office Visit [facility] [address] [place] [address] Jude Duque MD [address] [place] [address] 08/22/2025 11:15 AM EDT Appointment [facility] [address] [place] [address] 08/22/2025 12:15 PM EDT Appointment [facility] [address] [place] [address] 08/26/2025 1:00 PM EDT Office Visit [facility] Endocrinology [address] [place] [address] Miranda Hobson P, DOCUMENTATION CONSULTANT [address] [place] [address] 08/29/2025 10:00 AM EDT Appointment [facility] [address] [place] [address] 08/29/2025 11:00 AM EDT Appointment [facility] [address] [place] [address] 09/05/2025 10:00 AM EDT Appointment [facility] [address] [place] [address] 09/05/2025 11:00 AM EDT Appointment [facility] [address] [place] [address] documented as of this encounter Visit Diagnoses [...] documented as of this encounter Care Teams Cell Phone Repair Technician Relationship Specialty Start Date End Date Alvarez Zimmer MD [address] [place] [address] PCP - General Family Medicine 12/07/24 Lea Fernando [address] [place] [address] Stretch Machine Operator Endocrinology 08/29/24 Rachel Ray APRN [address] [place] [address] Nurse Practitioner Gastroenterology 09/24/24 Tamera Isabel LPN VALUE-BASED TRANSFORMATION PROGRAM Licensed Practical Nurse 05/29/25 Monique Tapia LPN VALUE-BASED [place] [address] TCM Nurse 07/10/25 08/09/25 documented as of this encounter
--- OUTSIDE RECORDS SUMMARY | 2025-08-17 15:18 | XMS_ITS | Encounter Summary ---
Author Organization [facility] Address [address] [place] [address] Care Team Providers Care Strategic Marketing Associate Name Role Phone Lea Fernando Unavailable [phone] Rachel Ray INVESTMENT REPRESENTATIVE Unavailable [phone] Alvarez Zimmer MD Primary Care Provider [phone] Tamera Isabel DIAMOND CUTTER Unavailable Unavailabl e Encounter Details Date Type [...] often do you attend chur ch or moravian services? Patient unable to answer [...] week 05/29/2025 How often do you attend [facility] or moravian services? Never 05/29/2025 Do you [...] more drinks on one occasion? Never 06/25/2025 [facility] [place] of Occupat ional [facility] - Occupational Stress Questionnaire Answer [...] drink first t kennedy in the morning (EYE-SHEET METAL CONTRACTOR) to steady your nerves or to get [...] Clinical Support [facility] [place] [address] [place] [address] 08/20/2025 10:30 AM EDT Social Work [facility] [place] [address] [facility] [address] [place] [address] [place] [address] 08/20/2025 11:00 AM EDT Office Visit [facility] [place] [address] [facility] [address] [place] [address] Jude Duque MD [address] [facility] [address] [place] [address] 08/22/2025 11:15 AM EDT Appointment [facility] [address] [place] [address] 08/22/2025 12:15 PM EDT Appointment [facility] [address] [place] [address] 08/26/2025 1:00 PM EDT Office Visit [facility] Endocrinology [address] [place] [address] Miranda Hobson P, INVESTMENT REPRESENTATIVE [address] [facility] 125 [place] [address] 08/29/2025 10:00 AM EDT Appointment [facility]iology [address] [place] [address] 08/29/2025 11:00 AM EDT Appointment [facility] [address] [place] [address] 09/05/2025 10:00 AM EDT Appointment [facility] [address] [place] [address] 09/05/2025 11:00 AM EDT Appointment [facility] [address] [place] [address] documented as of this encounter Visit Diagnoses [...] documented as of this encounter Care Teams Strategic Marketing Associate Relationship Specialty Start Date End Date Alvarez Zimmer MD [address] [place] [address] PCP - General Family Medicine 12/07/24 Lea Fernando [address] [facility] 125 [place] [address] Natural Gas Plant Technician Endocrinology 08/29/24 Rachel Ray APRN [address] [facility] [address] [place] [address] Nurse Practitioner Gastroenterology 09/24/24 Tamera Isabel LPN VALUE-BASED TRANSFORMATION PROGRAM Licensed Practical Nurse 05/29/25 documented as of this encounter
--- OUTSIDE RECORDS SUMMARY | 2025-08-17 15:19 | XMS_ITS | Encounter Summary ---
Author Organization [facility] Address [address] [place] [address] Care Team Providers Care Ortho Nurse Name Role Phone Lea Fernando Unavailable [phone] Rachel Ray PRE PLANNING ADVISOR Unavailable [phone] Alvarez Zimmer MD Primary Care Provider [phone] Tamera Isabel CUSTOMER CARE COORDINATOR Unavailable Unavailabl Monique Garay LPN Unavailable Unavailable [...] Never 06/25/2025 [facility] of Occupat ional [...] drink first t kennedy in the morning (EYE-WEFT STRAIGHTENER) to steady your nerves or to get [...] Clinical Support [facility]plant [place] [address] [place] [address] 08/20/2025 10:30 AM EDT Social Work [facility] [place] [address] [place] [address] [place] [address] 08/20/2025 11:00 AM EDT Office Visit [facility] [address] [place] [address] Jude Duque MD [address] [place] [address] 08/22/2025 11:15 AM EDT Appointment [facility] Radiology [address] [place] [address] 08/22/2025 12:15 PM EDT Appointment [facility] Radiology [address] [place] [address] 08/26/2025 1:00 PM EDT Office Visit [facility] Endocrinology [address] [place] [address] Miranda Hobson P, PRE PLANNING ADVISOR [address] [facility] [address] [place] [address] 08/29/2025 10:00 AM EDT Appointment [facility]iology [address] [place] [address] 08/29/2025 11:00 AM EDT Appointment [facility] [address] [place] [address] 09/05/2025 10:00 AM EDT Appointment [facility] [address] [place] [address] 09/05/2025 11:00 AM EDT Appointment [facility]iology [address] [place] [address] documented as of this encounter Visit Diagnoses [...] documented as of this encounter Care Teams Ortho Nurse Relationship Specialty Start Date End Date Alvarez Zimmer MD [address] [place] [address] PCP - General Family Medicine 12/07/24 Lea Fernando [address] [facility] [address] [place] [address] Animal Behaviourist Endocrinology 08/29/24 Rachel Ray APRN [address] [facility] [address] [place] [address] Nurse Practitioner Gastroenterology 09/24/24 Tamera Isabel LPN VALUE-BASED TRANSFORMATION PROGRAM Licensed Practical Nurse 05/29/25 Monique Tapia LPN VALUE-BASED [place] [address] TCM Nurse 07/10/25 08/09/25 documented as of this encounter
--- OUTSIDE RECORDS SUMMARY | 2025-08-17 15:19 | XMS_ITS | Encounter Summary ---
Author Organization [facility] Address [address] [place] [address] Care Team Providers Care Senior Category Manager Name Role Phone Lea Fernando Unavailable [phone] Rachel Ray INTERNATIONAL TAX MANAGER Unavailable [phone] Alvarez Zimmer MD Primary Care Provider Tamera Isabel EDUCATION INTERN Unavailable Unavailabl Monique Garay LPN Unavailable Unavailable [...] 06/25/2025 [facility] of Occupat [...] drink first t kennedy in the morning (EYE-VOCATIONAL REHABILITATION COUNSELOR) to steady your nerves or to get [...] Transplant Center [address] [place] [address] 08/20/2025 10:30 AM EDT Social Work [facility] Transplant [place] [address] [place] [address] [place] [address] 08/20/2025 11:00 AM EDT Office Visit [facility] [address] [place] [address] Jude Duque MD [address] [place] [address] 08/22/2025 11:15 AM EDT Appointment [facility] Radiology [address] [place] [address] 08/22/2025 12:15 PM EDT Appointment [facility] Inter[facility] Radiology [address] [place] [address] 08/26/2025 1:00 PM EDT Office Visit [facility] Endocrinology [address] [place] [address] Miranda Hobson P, INTERNATIONAL TAX MANAGER [address] [place] [address] 08/29/2025 10:00 AM EDT Appointment [facility] Radiology [address] [place] [address] 08/29/2025 11:00 AM EDT Appointment [facility]iology [address] [place] [address] 09/05/2025 10:00 AM EDT Appointment [facility]iology [address] [place] [address] 09/05/2025 11:00 AM EDT Appointment [facility]iology [address] [place] [address] documented as of this encounter Visit Diagnoses [...] as of this encounter Care Teams Senior Category Manager Relationship Specialty Start Date End Date Alvarez Zimmer MD [address] [place] [address] PCP - General Family Medicine 12/07/24 Lea Fernando [address] [facility] [address] [place] [address] Service Correspondent Endocrinology 08/29/24 Rachel Ray APRN [address] [place] [address] Nurse Practitioner Gastroenterology 09/24/24 Tamera Isabel LPN VALUE-BASED TRANSFORMATION PROGRAM Licensed Practical Nurse 05/29/25 Monique Tapia LPN VALUE-[place] [address] TCM Nurse 07/10/25 08/09/25 documented as of this encounter
--- OUTSIDE RECORDS SUMMARY | 2025-08-17 15:19 | XMS_ITS | Encounter Summary ---
Author Organization [facility] Address [address] [place] [address] Care Team Providers Care Associate Professor Of Media Arts Name Role Phone Lea Fernando Unavailable [phone] Rachel Ray STONE DRILLER Unavailable [phone] Alvarez Zimmer MD Primary Care Provider [phone] Tamera Isabel PNEUMATIC TOOL REPAIRER Unavailable Unavailabl e Reason for Visit * Reason Onset Date Comments HCN - Patient Message 08/16/2025 Encounter Details Date Type Department Care Team (Late st Contact Info) Description 08/16/2025 Telephone [facility] Endocrinology [address] [place] [address] Sharif Moreno, DPNicole [address] [facility] [address] [place] [address] HCN - Patient Message Social [...] you attend chur ch or caodaism services? Patient unable to answer 01/10/2025 Do you belong to any clubs o r organizations such as mandaen groups, [employer], anywayanyday or athletic groups, or school groups? Patient [...] r organizations such as mandaen groups, unions, [employer] or athletic groups, or school groups? No [...] more drinks on one occasion? Never 06/25/[address] [facility] [place] of Occupat ional Health - Occupational Stress [...] drink first t kennedy in the morning (EYE-NATURAL GAS FIELD PROCESSING SUPERVISOR) to steady your nerves or to get rid of a hangover? 0 06/25/2025 CAGE Questionnaire Score 0 025 Utilities Answer Date Recorded In the past 12 months has th [employer] electric, gas, oil, or water company threatened [...] optimal time of day to reach caller: [phone] Note: Please do not reply to this message. Follow-up communication and further actions as a result of this message need to be communicated with the patient directly, if the patient is not active onMyChart. If the patient is active on MyChart, they will receive notification of the communication/outcome via [employer]. documented in this encounter Plan of Treatment Upcoming Encounters Date Type Department Care Team (Late st Contact Info) Description 08/20/2025 9:30 AM EDT Clinical Support [facility] [place] [address] [place] [address] 08/20/2025 10:30 AM EDT Social Work [facility] [place] [address] [place] [facility] [address] [place] [address] Deysi Ortega [place], [place] [address] 08/20/2025 11:00 AM EDT Office Visit [facility] [place] [address] [facility] [address] [place] [address] Jude Duque MD [address] [facility] [address] [place] [address] 08/22/2025 11:15 AM EDT Appointment [facility] Interventional Radiology [address] [place] [address] 08/22/2025 12:15 PM EDT Appointment [facility] Interventional Radiology [address] [place] [address] 08/26/2025 1:00 PM EDT Office Visit [facility] Endocrinology [address] [place] [address] Miranda Hobson P, STONE DRILLER [address] [facility] 125 [place] [address] 08/29/2025 10:00 AM EDT Appointment [facility] Inter[facility] Radiology [address] [place] [address] 08/29/2025 11:00 AM EDT Appointment [facility] Inter[facility] Radiology [address] [place] [address] 09/05/2025 10:00 AM EDT Appointment [facility] Inter[facility] Radiology [address] [place] [address] 09/05/2025 11:00 AM EDT Appointment [facility] Interventional Radiology [address] [place] [address] documented as of this encounter Visit Diagnoses [...] documented as of this encounter Care Teams Associate Professor Of Media Arts Relationship Specialty Start Date End Date Alvarez Zmimer MD [address] [place] [address] PCP - General Family Medicine 12/07/24 Lea Fernando [address] [place] [address] Frozen Pie Maker Endocrinology 08/29/24 Rachel Ray APRN [address] [facility] [address] [place] [address] Nurse Practitioner Gastroenterology 09/24/24 Tamera Isabel LPN VALUE-BASED TRANSFORMATION PROGRAM Licensed Practical Nurse 05/29/25 documented as of this encounter
--- OUTSIDE RECORDS SUMMARY | 2025-08-17 15:19 | XMS_ITS | Encounter Summary ---
Author Organization [facility] Address [address] [place] [address] Care Team Providers Care Cheesemaker Name Role Phone Lea Fernando Unavailable [phone] Rachel Ray CELL CHANGER Unavailable [phone] Alvarez Zimmer MD Primary Care Provider [phone] Tamera Isabel BARREL RAISER HELPER Unavailable Unavailabl Monique Garay LPN Unavailable Unavailable [...] you attend chur ch or rastafari services? Never 05/29/2025 Do [...] first t kennedy in the morning (EYE-PEDIATRIC ALLERGIST) to steady your nerves or to get [...] Description 08/20/2025 9:30 AM EDT Clinical Support [facility] Transplant Center [address] [place] [address] 08/20/2025 10:30 AM EDT Social Work [facility] Transplant [place] [address] [place] [address] [place] [address] 08/20/2025 11:00 AM EDT Office Visit [facility] [address] [place] [address] Jude Duque MD [address] [place] [address] 08/22/2025 11:15 AM EDT Appointment [facility] Inter[facility] Radiology [address] [place] [address] 08/22/2025 12:15 PM EDT Appointment [facility] Interventional Radiology [address] [place] [address] 08/26/2025 1:00 PM EDT Office Visit [facility] Endocrinology [address] [place] [address] Miranda Hobson, CELL CHANGER [address] [facility] [address] [place] [address] 08/29/2025 10:00 AM EDT Appointment [facility] Interventional Radiology [address] [place] [address] 08/29/2025 11:00 AM EDT Appointment [facility] Inter[facility] Radiology [address] [place] [address] 09/05/2025 10:00 AM EDT Appointment [facility] Inter[facility] Radiology [address] [place] [address] 09/05/2025 11:00 AM EDT Appointment [facility] Interventional Radiology [address] [place] [address] documented as of this encounter Visit Diagnoses [...] documented as of this encounter Care Teams Cheesemaker Relationship Specialty Start Date End Date Alvarez Zimmer MD [address] [place] [address] PCP - General Family Medicine 12/07/24 Lea Fernando [address] [place] [address] Rug Measurer Endocrinology 08/29/24 Rachel Ray APRN [address] [facility] [address] [place] [address] Nurse Practitioner Gastroenterology 09/24/24 Tamera Isabel LPN VALUE-BASED TRANSFORMATION PROGRAM Licensed Practical Nurse 05/29/25 Monique Tapia LPN VALUE-[place] [address] TCM Nurse 07/10/25 08/09/25 documented as of this encounter
--- OUTSIDE RECORDS SUMMARY | 2025-08-17 15:19 | XMS_ITS | Encounter Summary ---
Author Organization [facility] Address [address] [place] [address] Care Team Providers Care Configuration Management Administrator Name Role Phone Lea Fernando Unavailable [phone] Rachel Ray CARDIOTHORACIC ANESTHESIA TECHNICIAN Unavailable [phone] Alvarez Zimmer MD Primary Care Provider [phone] Tamera Isabel HVAC DESIGNER Unavailable Unavailabl e Encounter Details Date Type [...] you attend [facility] or synagogue services? Never 05/29/2025 Do [...] more drinks on one occasion? Never 06/25/2025 [facility] [place] of Occupat ional [facility] - Occupational Stress Questionnaire Answer [...] first t kennedy in the morning (EYE-CLINICAL SOCIOLOGIST) to steady your nerves or to get [...] Support [facility] Transplant Center [address] [place] [address] 08/20/2025 10:30 AM EDT Social Work [facility] Transplant [place] [address] [place] [address] [place] [address] 08/20/2025 11:00 AM EDT Office Visit [facility] Trans[facility] [address] [place] [address] Jude Duque MD [address] [place] [address] 08/22/2025 11:15 AM EDT Appointment [facility] Interventional Radiology [address] [place] [address] 08/22/2025 12:15 PM EDT Appointment [facility] Interventional Radiology [address] [place] [address] 08/26/2025 1:00 PM EDT Office Visit [facility] Endocrinology [address] [place] [address] Miranda Hobson APRN [address] [facility] 125 [place] [address] 08/29/2025 10:00 AM EDT Appointment [facility] Interventional Radiology [address] [place] [address] 08/29/2025 11:00 AM EDT Appointment [facility] Inter[facility] Radiology [address] [place] [address] 09/05/2025 10:00 AM EDT Appointment [facility] Inter[facility] Radiology [address] [place] [address] 09/05/2025 11:00 AM EDT Appointment [facility] Interventional Radiology [address] [place] [address] documented as of this encounter Visit Diagnoses [...] documented as of this encounter Care Teams Configuration Management Administrator Relationship Specialty Start Date End Date Alvarez Zimmer MD [address] [place] [address] PCP - General Family Medicine 12/07/[address] [facility] [address] [place] [address] Valet Cashier Endocrinology 08/29/24 Rachel Ray, ADRI [address] [place] [address] Nurse Practitioner Gastroenterology 09/24/24 Tamera Isabel LPN VALUE-BASED TRANSFORMATION PROGRAM Licensed Practical Nurse 05/29/25 documented as of this encounter
--- OUTSIDE RECORDS SUMMARY | 2025-08-17 15:19 | XMS_ITS | Encounter Summary ---
Author Organization [facility] Address [address] [place] [address] Care Team Providers Care Gyroscopic Instrument Mechanic Name Role Phone Lea Fernando Unavailable [phone] Rachel Ray SALES SUPERVISOR Unavailable [phone] Alvarez Zimmer MD Primary Care Provider [phone] Tamera Isabel STUDENT TEACHER Unavailable Unavailabl Monique Garay STUDENT TEACHER Unavailable Unavailable Reason for Visit * Reason Comments TCM Encounter Details Date Type Department Care Team (Late st Contact Info) Description 07/19/2025 Patient Outreach [facility] [address] [facility], [address] [place] [address] Jeaneth Oscar LPN TCM Social [...] you attend [facility] or latter day services? Patient unable to answer 01/10/2025 Do you belong to any clubs o r organizations such as voodoo groups, [employer], [employer] or athletic groups, or school groups? Patient [...] often do you attend chur ch or latter day services? Never 05/29/2025 Do you belong to [...] more drinks on one occasion? Never 06/25/2025 [facility] - Occupational Stress Questionnaire Answer [...] drink first t kennedy in the morning (EYE-QUALITY CONTROL LEAD) to steady your nerves or to [...] see if she was still in the [facility] and she stated yes, [...] Description 08/20/2025 9:30 AM EDT Clinical Support [facility] Transplant Center [address] [place] [address] 08/20/2025 10:30 AM EDT Social Work [facility] Transplant Center [address] [place] [address] Deysi Ortega [facility] [address] 08/20/2025 11:00 AM EDT Office Visit [facility] Transplant Center [address] [place] [address] Jude Duque MD [address] [place] [address] 08/22/2025 11:15 AM EDT Appointment [facility] Interventional Radiology [address] [place] [address] 08/22/2025 12:15 PM EDT Appointment [facility] Interventional Radiology [address] [place] [address] 08/26/2025 1:00 PM EDT Office Visit [facility] Endocrinology [address] [place] [address] Miranda Hobson P, SALES SUPERVISOR [address] [facility] 125 [place] [address] 08/29/2025 10:00 AM EDT Appointment [facility] Interventional Radiology [address] [place] [address] 08/29/2025 11:00 AM EDT Appointment [facility] Inter[facility] Radiology [address] [place] [address] 09/05/2025 10:00 AM EDT Appointment [facility] Inter[facility] Radiology [address] [place] [address] 09/05/2025 11:00 AM EDT Appointment [facility] Interventional Radiology [address] [place] [address] documented as of this encounter Visit Diagnoses [...] documented as of this encounter Care Teams Gyroscopic Instrument Mechanic Relationship Specialty Start Date End Date Alvarez Zimmer MD [address] [place] [address] PCP - General Family Medicine 12/07/24 Lea Fernando [address] [facility] [address] [place] [address] Mobile Device Developer Endocrinology 08/29/24 Rachel Ray, SALES SUPERVISOR [address] [place] [address] Nurse Practitioner Gastroenterology 09/24/24 Tamera Isabel LPN VALUE-BASED TRANSFORMATION PROGRAM Licensed Practical Nurse 05/29/25 Monique Tapia LPN VALUE-BASED [place] [address] TCM Nurse 07/10/25 08/09/25 documented as of this encounter
--- OUTSIDE RECORDS SUMMARY | 2025-08-17 15:19 | XMS_ITS | Encounter Summary ---
Author Organization [facility] Address [address] [place] [address] Care Team Providers Care Farm Laborer Name Role Phone Lea Fernando Unavailable [phone] Rachel Ray SCUBA DIVER Unavailable [phone] Alvarez Zimmer MD Primary Care Provider [phone] Tamera Isabel ALIGNMENT SPECIALIST Unavailable Unavailabl Monique Garay LPN Unavailable Unavailable [...] you attend chur ch or episcopal services? Never 05/29/2025 Do you belong to [...] on one occasion? Never 06/25/2025 [facility] of [...] in a care home (including now)? No 06/26/2025 CAGE ASSESSMENT [...] drink first t kennedy in the morning (EYE-CARE MANAGEMENT ASSOCIATE) to steady your nerves or to get [...] [facility] [address] [place] [address] 08/20/2025 10:30 AM EDT Social Work [facility] [place] [address] [place] [address] [place] [address] 08/20/2025 11:00 AM EDT Office Visit [facility] [address] [place] [address] Jude Duque MD [address] [place] [address] 08/22/2025 11:15 AM EDT Appointment [facility] Inter[facility] Radiology [address] [place] [address] 08/22/2025 12:15 PM EDT Appointment [facility] Inter[facility] Radiology [address] [place] [address] 08/26/2025 1:00 PM EDT Office Visit [facility] Endocrinology [address] [place] [address] Miranda Hobson P, SCUBA DIVER [address] [place] [address] 08/29/2025 10:00 AM EDT Appointment [facility]iology [address] [place] [address] 08/29/2025 11:00 AM EDT Appointment [facility] [address] [place] [address] 09/05/2025 10:00 AM EDT Appointment [facility] [address] [place] [address] 09/05/2025 11:00 AM EDT Appointment [facility] [address] [place] [address] documented as of this encounter Visit Diagnoses [...] documented as of this encounter Care Teams Farm Laborer Relationship Specialty Start Date End Date Alvarez Zimmer MD [address] [place] [address] PCP - General Family Medicine 12/07/24 Lea Fernando [address] [place] [address] Primary Care Nurse Practitioner Endocrinology 08/29/24 Rachel Ray APRN [address] [place] [address] Nurse Practitioner Gastroenterology 09/24/24 Tamera Isabel LPN VALUE-BASED TRANSFORMATION PROGRAM Licensed Practical Nurse 05/29/25 Monique Tapia LPN VALUE[place] [address] TCM Nurse 07/10/25 08/09/25 documented as of this encounter
--- OUTSIDE RECORDS SUMMARY | 2025-08-17 15:20 | XMS_ITS | Encounter Summary ---
Author Organization [facility] Address [address] [place] [address] Care Team Providers Care Rn Ed Name Role Phone Lea Fernando Unavailable [phone] Rachel Ray MASTER COASTWISE YACHT Unavailable [phone] Alvarez Zimmer MD Primary Care Provider [phone] Tamera Isabel KENO DEALER Unavailable Unavailabl e Encounter Details Date Type [...] week 05/29/2025 How [facility] or [facility] services? Never 05/29/2025 Do you [...] more drinks on one occasion? Never 06/25/2025 [facility] of Occupat ional [facility] - Occupational Stress Questionnaire Answer [...] any time in the past 12 m [facility], were you homeless or living in [...] drink first t kennedy in the morning (EYE-PARTS INTERPRETER) to steady your nerves or to get [...] EDT Clinical Support [facility] [place] [address] [place] [address] 08/20/2025 10:30 AM EDT Social Work [facility] [place] [address] [place] [address] [place] [address] 08/20/2025 11:00 AM EDT Office Visit [facility] [address] [place] [address] Jude Duque MD [address] [place] [address] 08/22/2025 11:15 AM EDT Appointment [facility] Inter[facility] Radiology [address] [place] [address] 08/22/2025 12:15 PM EDT Appointment [facility] Inter[facility] Radiology [address] [place] [address] 08/26/2025 1:00 PM EDT Office Visit [facility] Endocrinology [address] [place] [address] Miranda Hobson P, MASTER COASTWISE YACHT [address] [facility] [address] [place] [address] 08/29/2025 10:00 AM EDT Appointment [facility] Inter[facility] Radiology [address] [place] [address] 08/29/2025 11:00 AM EDT Appointment [facility] [address] [place] [address] 09/05/2025 10:00 AM EDT Appointment [facility] Radiology [address] [place] [address] 09/05/2025 11:00 AM EDT Appointment [facility] Inter[facility] Radiology [address] [place] [address] documented as of this encounter Visit Diagnoses [...] as of this encounter Care Teams Rn Ed Relationship Specialty Start Date End Date Alvarez Zimmer MD [address] [place] [address] PCP - General Family Medicine 12/07/24 Lea Fernando [address] [place] [address] Typesetters Printer Endocrinology 08/29/24 Rachel Ray APRN [address] [facility] [address] [place] [address] Nurse Practitioner Gastroenterology 09/24/24 Tamera Isabel, KENO DEALER VALUE-BASED TRANSFORMATION PROGRAM Licensed Practical Nurse 05/29/25 documented as of this encounter
--- OUTSIDE RECORDS SUMMARY | 2025-08-17 15:20 | XMS_ITS | Encounter Summary ---
Author Organization [facility] Address [address] [place] [address] Care Team Providers Care Pump Attendant Name Role Phone Lea Fernando Unavailable [phone] Rachel Ray PIN ATTACHER Unavailable [phone] Alvarez Zimmer MD Primary Care Provider [phone] Tamera Isabel GEAR CODING MACHINE OPERATOR Unavailable Unavailabl Monique Garay LPN Unavailable Unavailable [...] you attend chur ch or pentecostal services? Never 05/29/2025 Do you [...] drinks on one occasion? Never 06/25/2025 [facility] of Occupat [...] first t kennedy in the morning (EYE-WEB METHODS DEVELOPER) to steady your nerves or to [...] Support [facility] [address] [place] [address] 08/20/2025 10:30 AM EDT Social Work [facility] [place] [address] [place] [address] [place] [address] 08/20/2025 11:00 AM EDT Office Visit [facility] [address] [place] [address] Jude Duque MD [address] [place] [address] 08/22/2025 11:15 AM EDT Appointment [facility] Inter[facility] Radiology [address] [place] [address] 08/22/2025 12:15 PM EDT Appointment [facility] Interventional Radiology [address] [place] [address] 08/26/2025 1:00 PM EDT Office Visit [facility] Endocrinology [address] [place] [address] Miranda Hobson P, PIN ATTACHER [address] [place] [address] 08/29/2025 10:00 AM EDT Appointment [facility] Interventional Radiology [address] [place] [address] 08/29/2025 11:00 AM EDT Appointment [facility] Inter[facility] Radiology [address] [place] [address] 09/05/2025 10:00 AM EDT Appointment [facility] Radiology [address] [place] [address] 09/05/2025 11:00 AM EDT Appointment [facility] Inter[facility] Radiology [address] [place] [address] documented as of this encounter Visit Diagnoses [...] documented as of this encounter Care Teams Pump Attendant Relationship Specialty Start Date End Date Alvarez Zimmer MD [address] [place] [address] PCP - General Family Medicine 12/07/24 Lea Fernando [address] [place] [address] Die Engraving Supervisor Endocrinology 08/29/24 Rachel Ray APRN [address] [place] [address] Nurse Practitioner Gastroenterology 09/24/24 Tamera Isabel LPN VALUE-BASED TRANSFORMATION PROGRAM Licensed Practical Nurse 05/29/25 Monique Tapia LPN VALUE-BASED [place] [address] TCM Nurse 07/10/25 08/09/25 documented as of this encounter
--- OUTSIDE RECORDS SUMMARY | 2025-08-17 15:20 | XMS_ITS | Encounter Summary ---
Author Organization [facility] Address [address] [place] [address] Care Team Providers Care Dairy Farm Manager Name Role Phone Lea Fernando Unavailable [phone] Rachel Ray REGISTERED NURSE STEP DOWN Unavailable [phone] Alvarez Zimmer MD Primary Care Provider [phone] Tamera Isabel ADVERTISEMENT COMPOSITOR Unavailable Unavailabl Monique Garay LPN Unavailable Unavailable [...] you attend chur ch or synagogue services? Never 05/29/2025 Do [...] Never 06/25/2025 [facility] of Occupat ional Health - [...] drink first t kennedy in the morning (EYE-EQUIPMENT OR MACHINERY CLEANER) to steady your nerves or to [...] Description 08/20/2025 9:30 AM EDT Clinical Support [facility] [address] [place] [address] 08/20/2025 10:30 AM EDT Social Work [facility] Transplant [place] [address] [place] [address] [place] [address] 08/20/2025 11:00 AM EDT Office Visit [facility] [address] [place] [address] Jude Duque MD [address] [place] [address] 08/22/2025 11:15 AM EDT Appointment [facility] Interventional Radiology [address] [place] [address] 08/22/2025 12:15 PM EDT Appointment [facility] Interventional Radiology [address] [place] [address] 08/26/2025 1:00 PM EDT Office Visit [facility] Endocrinology [address] [place] [address] Miranda Hobson P, REGISTERED NURSE STEP DOWN [address] [place] [address] 08/29/2025 10:00 AM EDT Appointment [facility] Inter[facility] Radiology [address] [place] [address] 08/29/2025 11:00 AM EDT Appointment [facility] Radiology [address] [place] [address] 09/05/2025 10:00 AM EDT Appointment [facility] Inter[facility] Radiology [address] [place] [address] 09/05/2025 11:00 AM EDT Appointment [facility] Interventional Radiology [address] [place] [address] documented as of this encounter Visit Diagnoses [...] documented as of this encounter Care Teams Dairy Farm Manager Relationship Specialty Start Date End Date Alvarez Zimmer MD [address] [place] [address] PCP - General Family Medicine 12/07/24 Lea Fernando [address] [place] [address] Beauty Specialist Endocrinology 08/29/24 Rachel Ray APRN [address] [place] [address] Nurse Practitioner Gastroenterology 09/24/24 Tamera Isabel LPN VALUE-BASED TRANSFORMATION PROGRAM Licensed Practical Nurse 05/29/25 Monique Tapia LPN VALUE-BASED [place] [address] TCM Nurse 07/10/25 08/09/25 documented as of this encounter
--- OUTSIDE RECORDS SUMMARY | 2025-08-17 15:20 | XMS_ITS | Encounter Summary ---
Author Organization [facility] Address [address] [place] [address] Care Team Providers Care Recovery Unit Operator Name Role Phone Lea Fernando Unavailable [phone] Rachel Ray PARKING METER ATTENDANT Unavailable [phone] Alvarez Zimmer MD Primary Care Provider [phone] Tamera Isabel LPN Unavailable Unavailabl e Monique Tapia LPN Unavailable Unavailable Reason for Visit * Reason Comments TCM Encounter Details Date Type Department Care Team (Late st Contact Info) Description 07/10/2025 Patient Outreach POPULATION [facility]ALTH [address] [facility], [address] [place] [address] Monique Tapia LPN VALUE-BASED [place] [address] TCM Social History Tobacco Use Types Packs/Day [...] you attend chur ch or holiness services? Patient unable to answer 01/10/2025 Do you belong to any clubs o r organizations such as christian groups, Ausphe[employer]s, Inventergy or athletic groups, or school groups? Patient [...] week 05/29/2025 How often do you attend [facility] or holiness services? Never 05/29/2025 Do you belong to any clubs o r organizations such as christian groups, unions, PROnoiseternal or athletic groups, or school groups? No [...] Never 06/25/2025 [facility] - Occupational Stress Questionnaire Answer [...] drink first t kennedy in the morning (EYE-SILK WORKER) to steady your nerves or to [...] Admit Date: 06/25/2025 Discharge Date: 07/09/2025 to [facility] in [facility] Service: GSH Discharge Diagnosis: Cirrhosis of liver with ascites 07/10/2025 TCM call # 1 Patient Reached: N Outcome: No KLEBER nurse call placed due to patient discharged to [facility] in [place] on 07/09/2025. Action: Follow up task placed [...] Description 08/20/2025 9:30 AM EDT Clinical Support [facility] [place] [address] [facility] [address] [place] [address] 08/20/2025 10:30 AM EDT Social Work [facility] [place] [address] [facility] [address] [place] [address] [place] [address] 08/20/2025 11:00 AM EDT Office Visit [facility] [place] [address] [facility] [address] [place] [address] Jude Duque MD [address] [facility] [address] [place] [address] 08/22/2025 11:15 AM EDT Appointment [facility] Interventional Radiology [address] [place] [address] 08/22/2025 12:15 PM EDT Appointment [facility] Interventional Radiology [address] [place] [address] 08/26/2025 1:00 PM EDT Office Visit [facility] Endocrinology [address] [place] [address] Miranda Hobson P, PARKING METER ATTENDANT [address] [facility] [address] [place] [address] 08/29/2025 10:00 AM EDT Appointment [facility] Interventional Radiology [address] [place] [address] 08/29/2025 11:00 AM EDT Appointment [facility] Interventional Radiology [address] [place] [address] 09/05/2025 10:00 AM EDT Appointment [facility] Interventional Radiology [address] [place] [address] 09/05/2025 11:00 AM EDT Appointment [facility] Interventional Radiology [address] [place] [address] documented as of this encounter Visit Diagnoses [...] documented as of this encounter Care Teams Recovery Unit Operator Relationship Specialty Start Date End Date Alvarez Zimmer MD [address] [place] [address] PCP - General Family Medicine 12/07/24 Lea Fernando [address] [place] [address] Care Program Resident Endocrinology 08/29/24 Rachel Ray APRN [address] [place] [address] Nurse Practitioner Gastroenterology 09/24/24 Tamera Isabel LPN VALUE-BASED TRANSFORMATION PROGRAM Licensed Practical Nurse 05/29/25 Monique Tapia LPN VALUE-BASED [place] [address] TCM Nurse 07/10/25 08/09/25 documented as of this encounter
--- OUTSIDE RECORDS SUMMARY | 2025-08-17 15:20 | XMS_ITS | Encounter Summary ---
Author Organization [facility] Address [address] [place] [address] Care Team Providers Care Security System Technician Name Role Phone Lea Fernando Unavailable [phone] Rachel Ray BOWLING ALLEY MANAGER Unavailable [phone] Alvarez Zimmer MD Primary Care Provider [phone] Tamera Isabel NEAR EAST ARCHEOLOGY PROFESSOR Unavailable Unavailabl e Encounter Details Date Type [...] do you attend [facility] or zoroastrianism services? Never 05/29/2025 Do you [...] Never 06/25/2025 [facility] of Occupat ional [facility] - Occupational Stress Questionnaire [...] any time in the past 12 m [facility], were you homeless or living in [...] drink first t kennedy in the morning (EYE-COOK TORTILLA) to steady your nerves or to get [...] Description 08/20/2025 9:30 AM EDT Clinical Support [facility] [address] [place] [address] 08/20/2025 10:30 AM EDT Social Work [facility] [place] [address] [place] [address] [place] [address] 08/20/2025 11:00 AM EDT Office Visit [facility] [address] [place] [address] Jude Duque MD [address] [place] [address] 08/22/2025 11:15 AM EDT Appointment [facility] Interventional Radiology [address] [place] [address] 08/22/2025 12:15 PM EDT Appointment [facility] Interventional Radiology [address] [place] [address] 08/26/2025 1:00 PM EDT Office Visit [facility] Endocrinology [address] [place] [address] Miranda Hobson, BOWLING ALLEY MANAGER [address] [facility] [address] [place] [address] 08/29/2025 10:00 AM EDT Appointment [facility] Interventional Radiology [address] [place] [address] 08/29/2025 11:00 AM EDT Appointment [facility] Interventional Radiology [address] [place] [address] 09/05/2025 10:00 AM EDT Appointment [facility] Interventional Radiology [address] [place] [address] 09/05/2025 11:00 AM EDT Appointment [facility] Interventional Radiology [address] [place] [address] documented as of this encounter Visit Diagnoses [...] documented as of this encounter Care Teams Security System Technician Relationship Specialty Start Date End Date Alvarez Zimmer MD [address] [place] [address] PCP - General Family Medicine 12/07/24 Lea Fernando [address] [place] [address] Clutch Mechanic Endocrinology 08/29/24 Rachel Ray APRN [address] [place] [address] Nurse Practitioner Gastroenterology 09/24/24 Tamera Isabel, NEAR EAST ARCHEOLOGY PROFESSOR VALUE-BASED TRANSFORMATION PROGRAM Licensed Practical Nurse 05/29/25 documented as of this encounter
--- OUTSIDE RECORDS SUMMARY | 2025-08-17 15:20 | XMS_ITS | Encounter Summary ---
Author Organization [facility] Address [address] [place] [address] Care Team Providers Care Industrial Waste Treatment Technician Name Role Phone NaseemVivTor, Lea Clarke Unavailable [phone] Rachel Ray PHOTOSTAT OPERATOR Unavailable [phone] Alvarez Zimmer MD Primary Care Provider [phone] Tamera Isabel REFRIGERATING TECHNICIAN Unavailable Unavailabl e Alina Lovett RN Unavailable Unavailab le Reason for Visit * Reason Comments Link Encounter Details Date Type Department Care Team (Late st Contact Info) Description 06/26/2025 Patient Outreach POPULATION HEALTH [address] [facility], [address] [place] [address] Alina Lovett, RN CH-VASCULAR & [...] do you attend [facility] or samaritan services? Patient unable to answer 01/10/2025 Do you belong to any clubs o r organizations such as confucianist groups, unions, Lazarus Effectternal or athletic groups, or school groups? Patient [...] Never 06/25/2025 [facility] of Occupat ional [facility] - Occupational Stress Questionnaire Answer Date [...] drink first t kennedy in the morning (EYE-HUMAN SERVICES PROFESSIONAL) to steady your nerves or to [...] Clinical Support [facility] [place] [address] [place] [address] 08/20/2025 10:30 AM EDT Social Work [facility] [place] [address] [place] [address] [place] [address] 08/20/2025 11:00 AM EDT Office Visit [facility] [address] [place] [address] Jude Duque MD [address] [place] [address] 08/22/2025 11:15 AM EDT Appointment [facility] Interventional Radiology [address] [place] [address] 08/22/2025 12:15 PM EDT Appointment [facility] Interventional Radiology [address] [place] [address] 08/26/2025 1:00 PM EDT Office Visit [facility] Endocrinology [address] [place] [address] Miranda Hobson, PHOTOSTAT OPERATOR [address] [facility] [address] [place] [address] 08/29/2025 10:00 AM EDT Appointment [facility] Interventional Radiology [address] [place] [address] 08/29/2025 11:00 AM EDT Appointment [facility] Interventional Radiology [address] [place] [address] 09/05/2025 10:00 AM EDT Appointment [facility] Interventional Radiology [address] [place] [address] 09/05/2025 11:00 AM EDT Appointment [facility] Interventional Radiology [address] [place] [address] documented as of this encounter Visit Diagnoses [...] as of this encounter Care Teams Industrial Waste Treatment Technician Relationship Specialty Start Date End Date Alvarez Zimmer MD [address] [place] [address] PCP - General Family Medicine 12/07/24 Lea Fernando [address] [facility] [address] [place] [address] Nuclear Weapons Custodian Endocrinology 08/29/24 Rachel Ray APRN [address] [facility] [address] [place] [address] Nurse Practitioner Gastroenterology 09/24/24 Tamera Isabel, REFRIGERATING TECHNICIAN VALUE-BASED TRANSFORMATION PROGRAM Licensed Practical Nurse 05/29/25 Alina Lovett, RN CH-VASCULAR & INTERVENTIONAL RADIOLOGY Registered Nurse 06/26/25 06/26/25 documented as of this encounter
--- OUTSIDE RECORDS SUMMARY | 2025-08-17 15:20 | XMS_ITS | Encounter Summary ---
Author Organization [facility] Address [address] [place] [address] Care Team Providers Care Fence Setter Name Role Phone Lea Fernando Unavailable [phone] Rachel Ray CONCRETE CURER Unavailable [phone] Alvarez Zimmer MD Primary Care Provider [phone] Tamera Isabel HEEL WHEELER Unavailable Unavailabl e Encounter Details Date Type [...] you attend chur ch or restorationism services? Patient unable to answer 01/10/2025 Do you belong to any clubs o r organizations such as mosque groups, unions, fraternal or athletic groups, or [...] week 05/29/2025 How often do you attend [facility] or restorationism services? Never 05/29/2025 Do you belong to any clubs o r organizations such as mosque groups, unions, fraternal or athletic groups, or [...] more drinks on one occasion? Never 06/25/2025 [facility] [place] of Occupat ional [facility] - Occupational Stress Questionnaire Answer Date [...] any time in the past 12 m [facility], were you homeless or [...] first t kennedy in the morning (EYE-STORE STOCK ASSOCIATE) to steady your nerves or to [...] Clinical Support [facility] [address] [place] [address] 08/20/2025 10:30 AM EDT Social Work [facility] [place] [address] [place] [address] [place] [address] 08/20/2025 11:00 AM EDT Office Visit [facility] [address] [place] [address] Jude Duque MD [address] [place] [address] 08/22/2025 11:15 AM EDT Appointment [facility]iology [address] [place] [address] 08/22/2025 12:15 PM EDT Appointment [facility] Inter[facility]iology [address] [place] [address] 08/26/2025 1:00 PM EDT Office Visit [facility] Endocrinology [address] [place] [address] Miranda Hobson, CONCRETE CURER [address] [facility] [address] [place] [address] 08/29/2025 10:00 AM EDT Appointment [facility] Inter[facility] Radiology [address] [place] [address] 08/29/2025 11:00 AM EDT Appointment [facility]iology [address] [place] [address] 09/05/2025 10:00 AM EDT Appointment [facility]iology [address] [place] [address] 09/05/2025 11:00 AM EDT Appointment [facility] Inter[facility]iology [address] [place] [address] documented as of this encounter Visit Diagnoses [...] documented as of this encounter Care Teams Fence Setter Relationship Specialty Start Date End Date Alvarez Zimmer MD [address] [place] [address] PCP - General Family Medicine 12/07/24 Lea Fernando [address] [place] [address] Rd Lab Technician Endocrinology 08/29/24 Rachel Ray APRN [address] [place] [address] Nurse Practitioner Gastroenterology 09/24/24 Tamera Isabel, HEEL WHEELER VALUE-BASED TRANSFORMATION PROGRAM Licensed Practical Nurse 05/29/25 documented as of this encounter
--- OUTSIDE RECORDS SUMMARY | 2025-08-17 15:21 | XMS_ITS | Encounter Summary ---
Author Organization [facility] Address [address] [place] [address] Care Team Providers Care Vacuum Evaporation Operator Name Role Phone Lea Fernando Unavailable [phone] Rachel Ray ONCOLOGY CONSULTANT Unavailable [phone] Alvarez Zimmer MD Primary Care Provider [phone] Tamera Isabel STUDENT ASSISTANCE COUNSELOR Unavailable Unavailabl e Reason for Visit * Reason Comments Med Refill Encounter Details Date Type Department Care Team (Late st Contact Info) Description 07/07/2025 Refill [facility] Medicine [address] [place] [address] Lisa Acuna, ONCOLOGY CONSULTANT, DNP [address] [place] [address] ETD (Eustachian tube dysfunction), bilateral [...] o r organizations such as mandaeism groups, [employer], [employer] or athletic groups, or school groups? Patient [...] o r organizations such as mandaeism groups, [employer], [employer] or athletic groups, or school groups? No [...] drinks on one occasion? Never 06/25/2025 [facility] [place] of Occupat ional Health - Occupational Stress [...] any time in the past 12 m [facility], were you homeless or living [...] drink first t kennedy in the morning (EYE-IMMIGRATION INVESTIGATOR) to steady your nerves or to get rid of a hangover? 0 06/25/2025 CAGE Questionnaire Score 0 025 Utilities Answer Date Recorded In the past 12 months has th [employer] gas, oil, or water company threatened to [...] Description 08/20/2025 9:30 AM EDT Clinical Support [facility] [place] [address] [facility] [address] [place] [address] 08/20/2025 10:30 AM EDT Social Work [facility] [place] [address] [facility] [address] [place] [address] [place] [address] 08/20/2025 11:00 AM EDT Office Visit [facility] [place] [address] [facility] [address] [place] [address] Jude Duque MD [address] [facility] [address] [place] [address] 08/22/2025 11:15 AM EDT Appointment [facility] Inter[facility] Radiology [address] [place] [address] 08/22/2025 12:15 PM EDT Appointment [facility] Inter[facility] Radiology [address] [place] [address] 08/26/2025 1:00 PM EDT Office Visit [facility] Endocrinology [address] [place] [address] Miranda Hobson, ONCOLOGY CONSULTANT [address] [place] [address] 08/29/2025 10:00 AM EDT Appointment [facility] Inter[facility] Radiology [address] [place] [address] 08/29/2025 11:00 AM EDT Appointment [facility] Inter[facility] Radiology [address] [place] [address] 09/05/2025 10:00 AM EDT Appointment [facility] [address] [place] [address] 09/05/2025 11:00 AM EDT Appointment [facility] Inter[facility]iology [address] [place] [address] documented as of this encounter Visit Diagnoses [...] as of this encounter Care Teams Vacuum Evaporation Operator Relationship Specialty Start Date End Date Alvarez Zimmer MD [address] [place] [address] PCP - General Family Medicine 12/07/24 Lea Fernando [address] [place] [address] Manager Voice Endocrinology 08/29/24 Rachel Ray, ONCOLOGY CONSULTANT [address] [facility] [address] [place] [address] Nurse Practitioner Gastroenterology 09/24/24 Tamera Isabel, MG VALUE-BASED TRANSFORMATION PROGRAM Licensed Practical Nurse 05/29/25 documented as of this encounter
--- OUTSIDE RECORDS SUMMARY | 2025-08-17 15:22 | XMS_ITS | Encounter Summary ---
Author Organization [facility] Address [address] [place] [address] Care Team Providers Care Production Engineer Name Role Phone Lea Fernando Unavailable [phone] Rachel Ray GAS REGULATOR REPAIRER Unavailable [phone] Alvarez Zimmer MD Primary Care Provider [phone] Tamera Isabel BLUEPRINT REPRODUCER Unavailable Unavailabl e Reason for Referral * Imaging (Routine) - Closed Specialty Diagnoses / Procedures Referred By Eder t Referred To Contact Radiology Diagnoses Other ascites Procedures US Guided Abdominal Paracentesis Preeti Andersen APRN [address] [place] [address] Phone: tel: fax: Referral ID Status Reason Start Date Expiration Date Visits Re quested Visits Authorized [id number] Closed 06/20/2025 12/20/2026 1 1 Encounter Details Date Type Department Care Team (Late st Contact Info) Description 06/20/[address] [facility] Interventional Radiology [address] [place] [address] Preeti Andersen APRN [address] [place] [address] Other ascites (Primary Dx) Social History Tobacco [...] you attend [facility] or denominational services? Patient unable to answer [...] How often do you attend chur or denominational services? Never 05/29/2025 Do you [...] Never 06/05/2025 [facility] [...] the past 12 m [facility], were you homeless or living in a [...] drink first t kennedy in the morning (EYE-ONCOLOGIST) to steady your nerves or to get rid of a hangover? 0 10/22/2024 CAGE Questionnaire Score 0 024 Utilities Answer Date Recorded In the past 12 months has e [employer], gas, oil, or water company threatened to [...] EDT Clinical Support [facility] [place] [address] [facility] [address] [place] [address] 08/20/2025 10:30 AM EDT Social Work [facility] [place] [address] [facility] [place] [address] Deysi Ortega [place], [place] [address] 08/20/2025 11:00 AM EDT Office Visit [facility] [place] [address] [facility] [address] [place] [address] Jude Duque MD [address] [facility] [address] [place] [address] 08/22/2025 11:15 AM EDT Appointment [facility] Inter[facility] Radiology [address] [place] [address] 08/22/2025 12:15 PM EDT Appointment [facility] Interventional Radiology [address] [place] [address] 08/26/2025 1:00 PM EDT Office Visit [facility] Endocrinology [address] [place] [address] Miranda Hobson P, GAS REGULATOR REPAIRER [address] [place] [address] 08/29/2025 10:00 AM EDT Appointment [facility]iology [address] [place] [address] 08/29/2025 11:00 AM EDT Appointment [facility] Radiology [address] [place] [address] 09/05/2025 10:00 AM EDT Appointment [facility] Inter[facility] Radiology [address] [place] [address] 09/05/2025 11:00 AM EDT Appointment [facility] Inter[facility] Radiology [address] [place] [address] documented as of this encounter Results * [...] this written report. Preliminary report signed by SOLAGNE Hall on 06/22/2025 6:15 AM By electronically [...] by ascites and intermittent hepatic hydrothorax. TECHNIQUE: [employer] Communications Sergeant: ADRI Andersen Secondary Turning Machine Operator Helper: None. Nurse: Padmini Technologist: Lilliana Phillips Dose: [...] complicated by ascites and intermittent hepatichydrothorax. TECHNIQUE: [employer] Sergeant: ADRI Andersen Secondary Turning Machine Operator Helper: None. Nurse: Padmini Technologist: Lilliana Phillips Dose: [...] on 06/23/2025 9:14 PM us Preeti Andersen GAS REGULATOR REPAIRER IMG US PROCEDURES Final Result documented in [...] as of this encounter Care Teams Production Engineer Relationship Specialty Start Date End Date Alvarez Zimmer MD [address] [place] [address] PCP - General Family Medicine 12/07/24 Lea Fernando [address] [place] [address] Brazer Assembler Endocrinology 08/29/24 Rachel Ray APRN [address] [place] [address] Nurse Practitioner Gastroenterology 09/24/24 Tamera Isabel LPN VALUE-BASED TRANSFORMATION PROGRAM Licensed Practical Nurse 05/29/25 documented as of this encounter
--- OUTSIDE RECORDS SUMMARY | 2025-08-17 15:22 | XMS_ITS ---
Author Organization [facility] Address [address] [place] [address] Care Team Providers Care Pile Driving Supervisor Name Role Phone Lea Fernando Unavailable [phone] Rachel Ray SR. 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) Care Team Name Role Phone Fax Email Wilma Arana RN Liver Coordinator [phone] N/A N/A Lea Reilly LCSW Brick Shader [phone] N/A N/A Gerson Arora MD Surgeon [phone] N/A Wilma Howard APRN Primary Care Provider [phone] N/A Rachel Ray APRN Referring Physician [phone] N/A Events Pre-Transplant Referred: 09/24/2024 Evaluation began: 10/08/2024 Committee: 01/28/2025 Center waitlisted: 02/19/2025 Appointments (07/17/2025 - 09/16/2025) When With Visit Type Description 08/20/2025 Transplant - Janu Ortega [place] - Office Visit 08/20/2025 Transplant LAB 08/20/2025 Transplant - Dixon Duque Office [facility] - Transplant
--- OUTSIDE RECORDS SUMMARY | 2025-08-17 15:22 | XMS_ITS | Encounter Summary ---
Author Organization [employer] ([place], [place], [place], [place]) Address [address] [place] [address] Care Team Providers Care General Ledger Accountant Name Role Phone Taina Lyles CORE OVEN TENDER Primary Care Provider [phone] Encounter Details Date Type Department Care Team (Late st Contact Info) Description 07/08/2021 Transcribed Document [facility] Family Medicine [facility] [place] [address] ProviderWilliam MD [address] [place], [place] [address] Social History Tobacco Use Types Packs/Day Years [...] 07/08/2021 9:31 EDT Electronically signed by [facility] Conversion Ancient Art Curator Cerner at 03/07/2023 9:46 AM CDT documented in this encounter Plan of Treatment Not on file documented as of this encounter Visit Diagnoses Not on filedocumented in this encounter Care Teams General Ledger Accountant Relationship Specialty Start Date End Date Taina Lyles, CORE OVEN TENDER [address] [place] [address] PCP - General Nurse Practitioner 06/15/23 documented as of this encounter
--- OUTSIDE RECORDS SUMMARY | 2025-08-17 15:22 | XMS_ITS | Encounter Summary ---
Author Organization [employer] ([place], [place], [place], [place]) Address [address] [place] [address] Care Team Providers Care Cabbage Salter Name Role Phone Taina Lyles APRN Primary Care Provider [phone] Encounter Details Date Type Department Care Team (Late st Contact Info) Description 09/15/2021 Transcribed Document [facility] Family Medicine [address] [place] [address] ProviderWilliam MD [address] [place] [address] Social History Tobacco Use Types Packs/Day Years [...] Reyes MD - 09/15/2021 3:29 PM CDT [address] [address] OPERATIVE REPORT PATIENT IDENTIFICATION: MONIKA ZIMMER (Female - 1960) ACCOUNT / UNIT NUMBER: [id number] / [id number] PRIMARY CARE PHYSICIAN: ERYN PARKINSON APRN PATIENT LOCATION: [facility] AD[facility] DATE / TIME: 09/15/21 0646 DISCHARGE [...] follow her diet, avoiding caffeine or nicotine. /[id number] Dictated By: VOLODYMYR VILLARREAL E-Signed By: ALDO [id number] [id number] [\R\ rep ct labl] [\R\ rep ct ivnm] Medical Disclaimer: This report is to be considered preliminary until reviewed and signed. documented in this encounter Plan of Treatment Not on file documented as of this encounter Visit Diagnoses Not on filedocumented in this encounter Care Teams Cabbage Salter Relationship Specialty Start Date End Date Taina Lyles, ADRI [address] [place] [address] PCP - General Nurse Practitioner 06/15/23 documented as of this encounter
--- OUTSIDE RECORDS SUMMARY | 2025-08-17 15:22 | XMS_ITS | Clinical Summary ---
Author Organization [facility] Address [address] [place] [address] Care Team Providers Care Aerobics Instructor Name Role Phone Taina Lyles APRN Primary Care Provider [phone] Allergies No known active allergies Medications * [...] (11/02/2022): Added automatically from request for surgery [id number] Colon cancer screening 09/20/201910/26 Overview (09/20/2019): Added automatically from request for surgery [id number] Immunizations Immunization Administration Dates Next Due Flu [...] slept in a senior care (including now)? No 12/01/2022 Abuse Screen Answer [...] history exists Medical Devices Implanted Type Area Log Feeder Device Identifier Shelf Expiration Date Model / Serial / Lot Implant Implant Description:BILATERAL IOL Clip Gi Lig Hemostasis Resolution 2.8mm - [id number] Implanted:Qty: 1 on 09/27/2019 by Ross Johnson MD at [facility] Implant [employer] BERNARDINO 01/02/2022 [id number] / / [id number] Dev Clip Quickclippro Fix 2300mm - [id number] Implanted:Qty: 2 on 09/27/2019 by Ross Johnson MD at [facility] Implant [facility]ARY 05/20/2022 HX20 2URA / / [id number] Dev Clip Quickclippro Fix 2300mm - [id number] Implanted:Qty: 2 on 09/27/2019 by Ross Johnson MD at [facility] Implant [employer] MARY 04/20/2022 HX20 2URA / / [id number] Dev Clip Endo [id number] Contrl Rot 235cm - [id number] Implanted:Qty: 1 on 01/14/2023 by Lori Rm MD at [facility] Implant N/A: Perianal [employer] BERNARDINO 09/27/2025 [id number] / / [id number] Procedures Procedure Name Priority Date/Time Associated Diagnosis [...] - 200 mg/dL 06/16/2024 12:02 AM EDT [facility] Triglycerides 113 0 - 150 mg/dL 06/16/2024 12:02 AM EDT [facility] HDL Cholesterol 51 40 - 60 mg/dL 06/16/2024 12:02 AM EDT [facility] LDL Cholesterol 79 0 - 100 mg/dL 06/16/2024 12:02 AM EDT [facility] VLDL Cholesterol 20 5 - 40 mg/dL 06/16/2024 12:02 AM T [facility] LDL/HDL Ratio 1.50 06/16/2024 12:02 AM EDT [facility] Blood Venipuncture / Unknown 06/15/2024 2:00 PM EDT 06/15/2024 3:40 PM EDT Narrative [facility] - 06/16/2024 12:02 AM EDT Cholesterol [...] MD LAB BLOOD ORDERABLES Final Resul t [facility]
[address] [place] [address], * Mammo Diagnostic Digital Tomosynthesis Bilateral With [...] ve Non-Reacti ve 10/28/2022 7:36 PM EST [facility] Blood Venipuncture / Unknown 10/28/2022 8:43 AM EST 10/28/2022 9:21 AM EST Narrative [facility] - 10/28/2022 7:36 PM EST Results may be falsely decreased if patient taking Biotin. Mira Amin APRN LAB BLOOD ORDERABLES Final Result [facility]
[address] [place] [address], from Last 3 Months or Most Recently Relevant to Health Maintenance Insurance [place] MEDICAID [place] HUMANA MEDICARE ADVANTAGE PPO Advance [...] Of Support Discussed With: Patient Care Teams Aerobics Instructor Relationship Specialty Start Date End Date Taina Lyles, ADRI PCP - General Nurse Practitioner 12/30/22
--- OUTSIDE RECORDS SUMMARY | 2025-08-17 15:22 | XMS_ITS | Encounter Summary ---
Author Organization [facility] Address [address] [place] [address] Care Team Providers Care An/Sqq 89(V)15 Sonar System Journeyman Name Role Phone Lea Fernando Unavailable [phone] Rachel Ray FBI FIELD AGENT Unavailable [phone] Alvarez Zimmer MD Primary Care Provider [phone] Tamera Isabel PHYSICIAN OFFICE ASSISTANT Unavailable Unavailabl Monique Garay LPN Unavailable Unavailable [...] drinks on one occasion? Never 06/25/2025 [facility] Occupat ional Health - [...] drink first t kennedy in the morning (EYE-LAND TITLE EXAMINER) to steady your nerves or to get [...] Description 08/20/2025 9:30 AM EDT Clinical Support [facility] [address] [place] [address] 08/20/2025 10:30 AM EDT Social Work [facility] [place] [address] [place] [address] [place] [address] 08/20/2025 11:00 AM EDT Office Visit [facility] [address] [place] [address] Jude Duqeu MD [address] [place] [address] 08/22/2025 11:15 AM EDT Appointment [facility] Interventional Radiology [address] [place] [address] 08/22/2025 12:15 PM EDT Appointment [facility] Interventional Radiology [address] [place] [address] 08/26/2025 1:00 PM EDT Office Visit [facility] Endocrinology [address] [place] [address] Miranda Hobson P, FBI FIELD AGENT [address] [place] [address] 08/29/2025 10:00 AM EDT Appointment [facility] Inter[facility] Radiology [address] [place] [address] 08/29/2025 11:00 AM EDT Appointment [facility] Inter[facility] Radiology [address] [place] [address] 09/05/2025 10:00 AM EDT Appointment [facility] Inter[facility] Radiology [address] [place] [address] 09/05/2025 11:00 AM EDT Appointment [facility] Interventional Radiology [address] [place] [address] documented as of this encounter Visit Diagnoses [...] documented as of this encounter Care Teams An/Sqq 89(V)15 Sonar System Journeyman Relationship Specialty Start Date End Date Alvarez Zimmer MD [address] [place] [address] PCP - General Family Medicine 12/07/24 Lea Fernando [address] [place] [address] [facility] Endocrinology 08/29/24 Rachel Ray APRN [address] [place] [address] Nurse Practitioner Gastroenterology 09/24/24 Tamera Isabel LPN VALUE-BASED TRANSFORMATION PROGRAM Licensed Practical Nurse 05/29/25 Monique Tapia LPN VALUE-[place] [address] TCM Nurse 07/10/25 08/09/25 documented as of this encounter
--- OUTSIDE RECORDS SUMMARY | 2025-08-17 15:22 | XMS_ITS | Encounter Summary ---
Author Organization [facility] Address [address] [place] [address] Care Team Providers Care Lead Developer Name Role Phone Lea Fernando Unavailable [phone] Rachel Ray SAFETY DIRECTOR Unavailable [phone] Alvarez Zimmer MD Primary Care Provider [phone] Tamera Isabel TUFTING MACHINE OPERATOR SINGLE NEEDLE Unavailable Unavailabl Alina Jennings RN Unavailable Unavailab le Reason for Visit * Reason Onset Date Comments Med Refill 06/23/2025 Encounter Details Date Type Department Care Team (Late st Contact Info) Description 06/23/2025 Refill [facility] [address], [address] [place] [address] Ar Dominique MD [address] [place] [address] Vitamin D deficiency Social History [...] o r organizations such as pentecostalism groups, [employer], [employer] or athletic groups, or school groups? Patient [...] you attend chur ch or worship services? Never 05/29/2025 Do you belong to any clubs o r organizations such as pentecostalism groups, [employer], [employer] or athletic groups, or school groups? No [...] occasion? Never 06/25/2025 [facility] - Occupational Stress Questionnaire Answer Date Recorded [...] drink first t kennedy in the morning (EYE-LAST MODEL MAKER) to steady your nerves or to [...] Description 08/20/2025 9:30 AM EDT Clinical Support [facility] [place] [address] [place] [address] 08/20/2025 10:30 AM EDT Social Work [facility] [place] [address] [place] [address] [place] [address] 08/20/2025 11:00 AM EDT Office Visit [facility] [place] [address] [place] [address] Jude Duque MD [address] [place] [address] 08/22/2025 11:15 AM EDT Appointment [facility] [address] [place] [address] 08/22/2025 12:15 PM EDT Appointment [facility] [address] [place] [address] 08/26/2025 1:00 PM EDT Office Visit [facility] Endocrinology [address] [place] [address] Miranda Hobson P, SAFETY DIRECTOR [address] [place] [address] 08/29/2025 10:00 AM EDT Appointment [facility] [address] [place] [address] 08/29/2025 11:00 AM EDT Appointment [facility] [address] [place] [address] 09/05/2025 10:00 AM EDT Appointment [facility] [address] [place] [address] 09/05/2025 11:00 AM EDT Appointment [facility] [address] [place] [address] documented as of this encounter Visit Diagnoses [...] as of this encounter Care Teams Lead Developer Relationship Specialty Start Date End Date Alvarez Zimmer MD [address] [place] [address] PCP - General Family Medicine 12/07/24 Lea Fernando [address] [facility] [address] [place] [address] Chemistry Teacher Endocrinology 08/29/24 Rachel Ray, SAFETY DIRECTOR [address] [facility] [place] [address] Nurse Practitioner Gastroenterology 09/24/24 Tamera Isabel, TUFTING MACHINE OPERATOR SINGLE NEEDLE VALUE-BASED TRANSFORMATION PROGRAM Licensed Practical Nurse 05/29/25 Alina Lovett, RN CH-VASCULAR & INTERVENTIONAL RADIOLOGY Registered Nurse 06/26/25 06/26/25 documented as of this encounter
--- OUTSIDE RECORDS SUMMARY | 2025-08-17 15:22 | XMS_ITS | Encounter Summary ---
Author Organization [facility] Address [address] [place] [address] Care Team Providers Care Yarn Preparation Supervisor Name Role Phone Wilma Howard Ambar KNITTING MACHINE TENDER Primary Care Provider [phone] Lea Fernando Unavailable [phone] Rachel Ray KNITTING MACHINE TENDER Unavailable [phone] Taina Lyles KNITTING MACHINE TENDER Primary Care Provider Monique Tapia ENGINEERING SURVEYOR Unavailable Unavailable Alvarez Zimmer MD Primary Care Provider [phone] Shaniqua Trevino ENGINEERING SURVEYOR Unavailable Unavailable Tamera Isabel ENGINEERING SURVEYOR Unavailable UnavailAlina Bedolla RN Unavailable Unavailab Monique Che LPN Unavailable Unavailable Reason for Visit * Reason Onset Date Comments Med Refill Med Refill 08/11/2021 Encounter Details Date Type Department Care Team (Late st Contact Info) Description 07/28/2021 Refill [facility] Endocrinology [address] [place] [address] Deysi Antonio MD [address] [place] [address] Social History Tobacco Use Types [...] Dosage: Test Strips Preferred Pharmacy & Location: [facility] Days of medication remaining (if under 3 days please aida as urgent): Pt is out Best contact number and optimal time of day to reach caller: [phone] Additional comments/information from caller: Note: Please do [...] Description 08/20/2025 9:30 AM EDT Clinical Support [facility] [place] [address] [place] [address] 08/20/2025 10:30 AM EDT Social Work [facility] [place] [address] [place] [address] [place] [address] 08/20/2025 11:00 AM EDT Office Visit [facility] [address] [place] [address] Jude Duque MD [address] [place] [address] 08/22/2025 11:15 AM EDT Appointment [facility] [address] [place] [address] 08/22/2025 12:15 PM EDT Appointment [facility] [address] [place] [address] 08/26/2025 1:00 PM EDT Office Visit [facility] Endocrinology [address] [place] [address] Miranda Hobson, KNITTING MACHINE TENDER [address] [facility] [address] [place] [address] 08/29/2025 10:00 AM EDT Appointment [facility] [address] [place] [address] 08/29/2025 11:00 AM EDT Appointment [facility] [address] [place] [address] 09/05/2025 10:00 AM EDT Appointment [facility] [address] [place] [address] 09/05/2025 11:00 AM EDT Appointment [facility] [address] [place] [address] documented as of this encounter Visit Diagnoses [...] documented as of this encounter Care Teams Yarn Preparation Supervisor Relationship Specialty Start Date End Date Wilma Howard, KNITTING MACHINE TENDER [address] [place] [address] [place] [address] PCP - General 04/03/21 09/30/24 Taina Lyles, KNITTING MACHINE TENDER [address] [place] [address] [place], [place] [address] PCP - General 10/01/24 12/06/24 Alvarez Zimmer MD [address] [place] [address] PCP - General Family Medicine 12/07/24 Lea Fernando [address] [place] [address] [address] [place] [address] Manager Mining Endocrinology 08/29/24 Rachel Ray, KNITTING MACHINE TENDER [address] [place] [address] Nurse Practitioner Gastroenterology 09/24/24 Monique Tapia LPN VALUE-[place] [address] TCM Nurse 11/28/24 12/28/24 Shaniqua Trevino LPN TCM Nurse 01/15/25 02/14/25 Tamera Isabel LPN VALUE-BASED TRANSFORMATION PROGRAM Licensed Practical Nurse 05/29/25 Alina Lovett, RN CH-VASCULAR & INTERVENTIONAL RADIOLOGY Registered Nurse 06/26/25 06/26/25 Monique Tapia LPN VALUE[place] [address] TCM Nurse 07/10/25 08/09/25 documented as of this encounter
--- OUTSIDE RECORDS SUMMARY | 2025-08-17 15:22 | XMS_ITS | Encounter Summary ---
Author Organization [employer] ([place], [place], [place], [place]) Address [address] [place] [address] Care Team Providers Care Airplane Electrical Repairer Name Role Phone Taina Lyles ADRI Primary Care Provider [phone] Encounter Details Date Type Department Care Team (Late st Contact Info) Description 07/07/2021 Transcribed Document [facility] [place] Family Medicine [address] [place] [address] ProviderWilliam MD [address] [place] [address] Social History Tobacco Use Types Packs/Day Years [...] 07/07/2021 16:13 EDT by CHARLES CUEVAS Mkt Die Maintenance Technician-Utilization Mgt Final Discharge Planning Discharge Arrangements : Patient Post-Acute Information Patient Name: MONIKA ZIMMER Gender: Female : [birth year] Age: 60 Years No Post-Acute Placement(s) Listed No Post-Acute Service(s) Listed No [place] Referral(s) Listed Discharge To Care Management : Home/Residential/Fdc or Self Care -01 CHARLES CUEVAS Mkt Die Maintenance Technician-Utilization Mgt - 07/07/2021 16:13 EDT documented in this encounter Plan of Treatment Not on file documented as of this encounter Visit Diagnoses Not on filedocumented in this encounter Care Teams Airplane Electrical Repairer Relationship Specialty Start Date End Date Taina Lyles, TIRE SORTER [address] [place] [address] PCP - General Nurse Practitioner 06/15/23 documented as of this encounter
--- OUTSIDE RECORDS SUMMARY | 2025-08-17 15:22 | XMS_ITS | Encounter Summary ---
Author Organization [facility], [facility] Address [address] [place] [phone] Phone Care Team Providers Care Hoist Mechanic Name Role Phone Taina Lyles Primary Care Provider [phone] Reason for Visit * Reason Comments Med Refill Encounter Details Date Type Department Care Team (Late st Contact Info) Description 10/17/2021 Refill [facility], [address] [address] [place] Social History [...] on filedocumented in this encounter Care Teams Hoist Mechanic Relationship Specialty Start Date End Date Taina Lyles [address] [place] [address] PCP - General 05/02/23 documented as of this encounter
--- OUTSIDE RECORDS SUMMARY | 2025-08-17 15:22 | XMS_ITS ---
Author Organization [facility] Address [address] [place] [address] Care Team Providers Care Mimeographer Name Role Phone Lea Fernando Unavailable [phone] Rachel Ray CONCESSION MANAGER Unavailable [phone] Alvarez Zimmer MD Primary Care Provider [phone] Tamera Isabel EDUCATIONAL/DEVELOPMENT ASSISTANT Unavailable Unavailabl e Transplant Episode Kidney Candidate [facility] ([place], [place]) [facility] Evaluation began on 10/30/2024 Marked as Active on 10/30/2024 Kidney CoordinatorWilma Arana RN Fax: N/A Email: N/A Scores Score Value Updated Exceptions/Reas ons CPRA Not available EPTS (Calc) 53 08/17/2025 [place] Organ Diagnosis Organ Primary Contributory Kidney Diabetes Mellitus - Type II Care Team Name Role Phone Fax Email Wilma Arana RN Kidney Coordinator [phone] N/A N/A Events Pre-Transplant Referred: 10/21/2024 Evaluation began: 10/30/2024 Appointments (07/17/2025 - 09/16/2025) When With Visit Type Description 08/20/2025 Transplant - Jaun Ortega ork - Office Visit 08/20/2025 Transplant LAB 08/20/2025 Transplant - Dixon Duque V isit - Transplant
--- OUTSIDE RECORDS SUMMARY | 2025-08-17 15:22 | XMS_ITS | Encounter Summary ---
Author Organization [facility] Address [address] [place] [address] Care Team Providers Care Body Recall Instructor Name Role Phone Wilma Howard Ambar BOX LINING MACHINE OPERATOR Primary Care Provider [phone] Lea Fernando Unavailable [phone] Rachel Ray BOX LINING MACHINE OPERATOR Unavailable [phone] Taina Lyles BOX LINING MACHINE OPERATOR Primary Care Provider Monique Tapia FIRE HYDRANT MECHANIC Unavailable Unavailable Alvarez Zimmer MD Primary Care Provider [phone] Shaniqua Trevino FIRE HYDRANT MECHANIC Unavailable Unavailable Tamera Isabel FIRE HYDRANT MECHANIC Unavailable UnavailAlina Bedolla RN Unavailable Unavailab Monique Che LPN Unavailable Unavailable Reason for Visit * Reason Comments Med Refill Encounter Details Date Type Department Care Team (Late st Contact Info) Description 07/28/2021 Refill [facility] Endocrinology [address] [place] [address] Deysi Antonio MD [address] [place] [address] Social History Tobacco Use Types [...] AM EDT Clinical Support [facility] [place] [address] [facility] [address] [place] [address] 08/20/2025 10:30 AM EDT Social Work [facility] [place] [address] [facility] [address] [place] [address] [place] [address] 08/20/2025 11:00 AM EDT Office Visit [facility] [place] [address] [facility] [address] [place] [address] Jude Duque MD [address] [place] [address] 08/22/2025 11:15 AM EDT Appointment [facility] Inter[facility] Radiology [address] [place] [address] 08/22/2025 12:15 PM EDT Appointment [facility] Inter[facility] Radiology [address] [place] [address] 08/26/2025 1:00 PM EDT Office Visit [facility] Endocrinology [address] [place] [address] Miranda Hobson, BOX LINING MACHINE OPERATOR [address] [facility] [address] [place] [address] 08/29/2025 10:00 AM EDT Appointment [facility] Radiology [address] [place] [address] 08/29/2025 11:00 AM EDT Appointment [facility] [address] [place] [address] 09/05/2025 10:00 AM EDT Appointment [facility] [address] [place] [address] 09/05/2025 11:00 AM EDT Appointment [facility]iology [address] [place] [address] documented as of this encounter [...] as of this encounter Care Teams Body Recall Instructor Relationship Specialty Start Date End Date Wilma Howard APRN [address] [place] [address] [place] [address] PCP - General 04/03/21 09/30/24 Taina Lyles APRN [address] [place] [address] [place] [address] PCP - General 10/01/24 12/06/24 Alvarez [facility]immer [facility] [place] [place] [address] PCP - General Family Medicine 12/07/24 Lea Fernando [address] [place] [address] Rand Butting Machine Operator Endocrinology 08/29/24 Rachel Ray APRN [address] [place] [address] Nurse Practitioner Gastroenterology 09/24/24 Monique Tapia LPN VALUE-BASED [place] [address] TCM Nurse 11/28/24 12/28/24 Shaniqua Trevino LPN TCM Nurse 01/15/25 02/14/25 Tamera Isabel LPN VALUE-BASED TRANSFORMATION PROGRAM Licensed Practical Nurse 05/29/25 Alina Lovett, RN CH-VASCULAR & INTERVENTIONAL RADIOLOGY Registered Nurse 06/26/25 06/26/25 Monique Tapia LPN VALUE-BASED [place] [address] TCM Nurse 07/10/25 08/09/25 documented as of this encounter
--- OUTSIDE RECORDS SUMMARY | 2025-08-17 15:22 | XMS_ITS ---
Author Organization [facility] Address [address] [place] [address] Care Team Providers Care Swing Grinder Name Role Phone Lea Fernando Unavailable [phone] Rachel Ray TELEGRAPH SERVICE RATER Unavailable [phone] Alvarez Zimmer MD Primary Care Provider [phone] Tamera Isabel LPN Unavailable Unavailabl e Annual Wellness Status:Active (Active) Start date:05/29/2025 Enrollment date:05/29/2025 Enrollment reason:Identified using claims or encounter data Case Team Name Relationship Phone Tamera Isabel LPN(Responsible Staff) Licensed Practical Nurse Continued Care and Services Coordination
--- OUTSIDE RECORDS SUMMARY | 2025-08-17 15:22 | XMS_ITS | Encounter Summary ---
Author Organization [facility] Address [address] [place] [address] Care Team Providers Care Image Consultant Name Role Phone Lea Fernando Unavailable [phone] Rachel Ray PANTS MAKER Unavailable [phone] Alvarez Zimmer MD Primary Care Provider [phone] Tamera Isabel LEAD HOUSEKEEPER Unavailable UnavailAlina Bedolla RN Unavailable Unavailab Monique Che LEAD HOUSEKEEPER Unavailable Unavailable Reason for Visit * Reason Onset Date Comments HCN Clinical Concern/Question 06/21/2025 Encounter Details Date Type Department Care Team (Late st Contact Info) Description 06/21/2025 Telephone [facility] Medicine [address] [place] [address] Alvarez Zimmer MD [address] [place] [address] HCN Clinical Concern/Question Social History [...] week 01/10/2025 How often do you attend [facility] ch or taoism services? Patient unable to answer 01/10/2025 Do you belong to any clubs o r organizations such as baptist groups, [employer] and Maintenances, fraternal or athletic groups, or school groups? [...] week 05/29/2025 How often do you attend [facility] ch or taoism services? Never 05/29/2025 Do you [...] more drinks on one occasion? Never 06/25/2025 [facility] Occupat ional Health - Occupational Stress [...] drink first t kennedy in the morning (EYE-LAWN SERVICE MANAGER) to steady your nerves or [...] home palliative care. Best contact number: Other: [phone] Optimal time of day to reach caller: ANYTIME Additional comments/information from caller: None Note: Please do not reply to this message. Follow-up communication and further actions as a result of this message need to be communicated with the patient directly, if the patient is not active onMyChart. If the patient is active on MyChart, they will receive notification of the communication/outcome via [employer]. documented in this encounter Plan of Treatment Upcoming Encounters Date Type Department Care Team (Late st Contact Info) Description 08/20/2025 9:30 AM EDT Clinical Support [facility] Transplant [place] [address] [place] [address] 08/20/2025 10:30 AM EDT Social Work [facility] [place] [address] [place] [address] [place] [address] 08/20/2025 11:00 AM EDT Office Visit [facility] [address] [place] [address] Jude Duque MD [address] [place] [address] 08/22/2025 11:15 AM EDT Appointment [facility] Inter[facility] Radiology [address] [place] [address] 08/22/2025 12:15 PM EDT Appointment [facility] Interventional Radiology [address] [place] [address] 08/26/2025 1:00 PM EDT Office Visit [facility] Endocrinology [address] [place] [address] Miranda Hobson P, PANTS MAKER [address] [place] [address] 08/29/2025 10:00 AM EDT Appointment [facility] Inter[facility] Radiology [address] [place] [address] 08/29/2025 11:00 AM EDT Appointment [facility] [address] [place] [address] 09/05/2025 10:00 AM EDT Appointment [facility] [address] [place] [address] 09/05/2025 11:00 AM EDT Appointment [facility]iology [address] [place] [address] documented as of this encounter Visit Diagnoses [...] documented as of this encounter Care Teams Image Consultant Relationship Specialty Start Date End Date Alvarez Zimmer MD [address] [place] [address] PCP - General Family Medicine 12/07/24 Lea Fernando [address] [place] [address] Milk Pasteurizer Endocrinology 08/29/24 Rachel Ray APRN [address] [place] [address] Nurse Practitioner Gastroenterology 09/24/24 Tamera Isabel LPN VALUE-BASED TRANSFORMATION PROGRAM Licensed Practical Nurse 05/29/25 Alina Lovett, RN CH-VASCULAR & INTERVENTIONAL RADIOLOGY Registered Nurse 06/26/25 06/26/25 Monique Tapia LPN VALUE-[place] [address] TCM Nurse 07/10/25 08/09/25 documented as of this encounter
--- OUTSIDE RECORDS SUMMARY | 2025-08-17 15:22 | XMS_ITS | Clinical Summary ---
Author Organization [facility] Address [address] [place] [phone] Phone Care Team Providers Care Ferryboat Ticket Taker Name Role Phone Taina Lyles Primary Care Provider [phone] Allergies No known active allergies Medications * [...] Insurance [employer] Dual [employer] MCR/GINGER Care Teams Ferryboat Ticket Taker Relationship Specialty Start Date End Date Taina Lyles [address] [place] [address] PCP - General 05/02/23
--- OUTSIDE RECORDS SUMMARY | 2025-08-17 15:22 | XMS_ITS | Encounter Summary ---
Author Organization [facility] Address [address] [place] [address] Care Team Providers Care Inspector Motor Vehicles Name Role Phone Lea Fernando Unavailable [phone] Rachel Ray LAP HAND TOOL Unavailable [phone] Alvarez Zimmer MD Primary Care Provider [phone] Tamera Iasbel SLURRY TANK OPERATOR Unavailable UnavailAlina Bedolla RN Unavailable Unavailab Monique Che SLURRY TANK OPERATOR Unavailable Unavailable Encounter Details Date Type Department Care Team (Late st Contact Info) Description 06/20/2025 Telephone [facility] Medicine [address] [place] [address] Alvarez Zimmer MD [address] [place] [address] Social History Tobacco Use Types [...] you attend chur ch or lutheran services? Patient unable to answer 01/10/2025 Do you belong to any clubs o r organizations such as yazidism groups, [employer], [employer] or athletic groups, or school groups? Patient [...] you attend [facility] ch or lutheran services? Never 05/29/2025 Do you belong to any clubs o r organizations such as yazidism groups, [employer], [employer] or athletic groups, or school groups? No [...] more drinks on one occasion? Never 06/25/2025 [facility] [place] of Occupat ional Health - Occupational Stress [...] first t kennedy in the morning (EYE-FILM DEVELOPER) to steady your nerves or to get rid of a hangover? 0 06/25/2025 CAGE Questionnaire Score 0 025 Utilities Answer Date Recorded In the past 12 months has th [employer], gas, oil, or water company threatened to [...] plus. I did search an there is [facility] so I have [...] go to a facility. Best contact number: [phone] (mobile) Optimal time of day to reach [...] [facility] [place] [address] [facility] [address] [place] [address] 08/20/2025 10:30 AM EDT Social Work [facility] [place] [address] [facility] [place] [address] [place] [address] 08/20/2025 11:00 AM EDT Office Visit [facility] [place] [address] [facility] [address] [place] [address] Jude Duque MD [address] [facility] [address] [place] [address] 08/22/2025 11:15 AM EDT Appointment [facility] [address] [place] [address] 08/22/2025 12:15 PM EDT Appointment [facility] [address] [place] [address] 08/26/2025 1:00 PM EDT [facility] [address] [place] [address] Miranda Hobson P, LAP HAND TOOL [address] [place] [address] 08/29/2025 10:00 AM EDT Appointment [facility] [address] [place] [address] 08/29/2025 11:00 AM EDT Appointment [facility] [address] [place] [address] 09/05/2025 10:00 AM EDT Appointment [facility] [address] [place] [address] 09/05/2025 11:00 AM EDT Appointment [facility] [address] [place] [address] documented as of this encounter Visit Diagnoses [...] as of this encounter Care Teams Inspector Motor Vehicles Relationship Specialty Start Date End Date Alvarez Zimmer MD [address] [place] [phone] PCP - General Family Medicine 12/07/24 Lea Fernando [address] [facility] [address] [place] [address] [place] [facility] 08/29/24 Rachel Ray, LAP HAND TOOL [address] [facility] [address] [place] [address] Nurse Practitioner Gastroenterology 09/24/24 Tamera Isabel LPN VALUE-BASED TRANSFORMATION PROGRAM Licensed Practical Nurse 05/29/25 Alina Lovett, RN [facility] INTERVENTIONAL RADIOLOGY Registered Nurse 06/26/25 06/26/25 Monique Tapia LPN VALUE-[place]ED [place] [address] TCM Nurse 07/10/25 08/09/25 documented as of this encounter
--- OUTSIDE RECORDS SUMMARY | 2025-08-17 15:23 | XMS_ITS | Encounter Summary ---
Author Organization [employer] ([place], [place], [place], [place]) Address [address] [place] [address] Care Team Providers Care Manager Security And Safety Name Role Phone Taina Lyles YACHT CAPTAIN Primary Care Provider [phone] Encounter Details Date Type Department Care Team (Late st Contact Info) Description 07/02/2021 Transcribed Document [facility] [place] [address] ProviderWilliam MD [address] [place], [place] [address] Social History Tobacco Use Types Packs/Day Years [...] list: All Problems Anxiety / SNOMED CT 0596433600 / Confirmed Arthritis / SNOMED CT 7205317 / Confirmed ADD (attention deficit disorder) / SNOMED CT 7423559062 / Confirmed right carpal tunnel / SNOMED CT 23049298 / Confirmed Chronic depression / SNOMED CT 525456519 / Confirmed Diabetes / SNOMED CT 123978814 / Confirmed GERD (gastroesophageal reflux disease) / SNOMED CT 381265282 / Confirmed Stress incontinence / SNOMED CT 481375000 / Confirmed History of recurrent UTIs / SNOMED CT 465317361 / Confirmed H/O syncope / SNOMED CT 7107691387 / Confirmed Hyperlipidemia / SNOMED CT 03752473 / Confirmed bilateral knee pain / SNOMED CT 00465310 / Confirmed Right tennis elbow / SNOMED CT 3531388969 / Confirmed recent diagnosis Renal insufficiency / SNOMED CT 5879463878 / Confirmed RLS (restless legs syndrome) / SNOMED CT 36847462 / Confirmed sleep apnea with Cpap / SNOMED CT 144656749 / Confirmed, Active Problems (16) ADD (attention [...] EDT Height Source Stated Height Entry Format [place] Height/Length, [place] (ft) 5 ft Height/Length [place] 6 Inch CLINICALHEIGHT 167.64 cm Mclean Body Weight 58.88 kg Weight Source, ED Standing scale Weight Entry Format [place] Weight Mohawk lb 203 lb CLINICALWEIGHT 92.27 kg Body [...] filedocumented in this encounter Care Teams Manager Security And Safety Relationship Specialty Start Date End Date Taina Lyles, YACHT CAPTAIN [address] [place] [address] PCP - General Nurse Practitioner 06/15/23 documented as of this encounter
--- OUTSIDE RECORDS SUMMARY | 2025-08-17 15:23 | XMS_ITS | Encounter Summary ---
Author Organization [employer] ([place], [place], [place], [place]) Address [address] [place] [address] Care Team Providers Care Drama Therapist Name Role Phone Taina Lyles BEREAVEMENT PROGRAM COORDINATOR Primary Care Provider [phone] Encounter Details Date Type Department Care Team (Late st Contact Info) Description 07/02/2021 Transcribed Document [facility] [place] [address] [place] [address] ProviderWilliam MD [address] [id number] Social History Tobacco Use Types Packs/Day Years [...] Reyes MD - 07/02/2021 10:50 AM CDT [place] [id number] MONIKA ZIMMERYE :1960 Visit Time:07/01/2021 Your Visit [...] from ER. Where: [address] [place] [id number] (1) Follow Up with CORINA ABAD [...] range between ( 1.0 and 7.0 ) Hendricks #: 0.66 K/uL -- Normal range between ( 0.24 and 0.82 ) Eos #: 0.49 K/uL -- Normal range between ( 0.04 and 0.54 ) Hendricks %: 8.2 % -- Normal range between [...] safe for you. General instructions ??? Take qytn-jts-casgiys and prescription medicines only as told by [...] provider. Document Revised: 05/10/2019 Document Reviewed: 05/10/2019 [employer] Patient Education ?? 2020 [employer]. Aspirin and Your Heart Aspirin is a [...] The two forms of aspirin are: ? Qro-rojamcj-clxxgm.This type of aspirin does not have a coating and is absorbed quickly. This type of aspirin also comes in a chewable form. ? Enteric-coated. This type of aspirin has a coating that releases the medicine very slowly. Enteric-coated aspirin might cause less stomach upset than ykr-xiwpgan-kseguu aspirin. This type of aspirin should not [...] provider. Document Revised: 09/07/2018 Document Reviewed: 09/07/2018 [employer] Patient Education ?? 2020 [employer]. Acute Pain, Adult Acute pain is a [...] these instructions at home: Medicines ??? Take ntjz-yft-keqnuie and prescription medicines only as told by [...] is severe. ? Do not take other usvn-mvn-jzhzwud pain medicines in addition to prescription pain [...] and fresh fruits and vegetables. ? Take mgfm-gtb-qaabdjw or prescription medicines. ? Limit foods that [...] you are no longer ill. ??? Take xopr-nta-rfrzryz and prescription medicines only as told by [...] provider. Document Revised: 03/24/2020 Document Reviewed: 03/24/2020 [employer] Patient Education ?? 2020 [employer]. Coronary Angiogram A coronary angiogram is an [...] including vitamins, herbs, eye drops, creams, and crbf-peg-waoxxdx medicines. ??? Any problems you or family [...] do not normally take it. ??? Taking rixm-qql-vauntwc medicines, vitamins, herbs, and supplements. General instructions [...] provider. Document Revised: 05/29/2020 Document Reviewed: 05/29/2020 [employer] Patient Education ?? 2020 [employer]. Nonspecific Chest Pain, Pediatric Chest pain [...] instructions at home: General instructions ??? Give undv-rvl-awrtcix and prescription medicines only as told by [...] and is usually not dangerous. ??? Give etih-fus-gfhmvpi and prescription medicines only as told by [...] provider. Document Revised: 06/08/2019 Document Reviewed: 06/08/2019 [employer] Patient Education ?? 2020 [employer] Nonspecific Chest Pain Chest pain can [...] these instructions at home: Medicines ??? Take zcep-oqx-adxiaaa and prescription medicines only as told by [...] Eating a heart-healthy diet. A diet and electronic publishing specialist (dietitian) can help you to learn [...] provider. Document Revised: 05/10/2019 Document Reviewed: 05/10/2019 [employer] Patient Education ?? 2020 [employer]. Emergency Awareness and Preventative Care STROKE [...] Assistance with quitting is available by contacting 4-156-ZQAFNOW. This is a free resource providing counseling, [...] was given the opportunity to ask questions. Patient/Hvac Service Manager Name: Patient/Hvac Service Manager Signature: Relationship to Patient: Clinician/Hospital Hvac Service Manager Signature: Please Provide a Telephone Number Where You Can Be Reached: Is it Permissible To Leave a Message? Date: Electronically signed by Luigi, [facility] Conversion Body And Frame Technician Cerner at 03/07/2023 9:48 AM CDT documented in this encounter Plan of Treatment Not on file documented as of this encounter Visit Diagnoses Not on filedocumented in this encounter Care Teams Drama Therapist Relationship Specialty Start Date End Date Taina Lyles, BEREAVEMENT PROGRAM COORDINATOR [address] [place] [address] PCP - General Nurse Practitioner 06/15/23 documented as of this encounter
--- OUTSIDE RECORDS SUMMARY | 2025-08-17 15:23 | XMS_ITS | Encounter Summary ---
Author Organization [facility] Address [address] [place] [address] Care Team Providers Care Flower Shop Laborer/Designer Name Role Phone Lea Fernando Unavailable [phone] Rachel Ray MAGAZINE WRITER Unavailable [phone] lAvarez Zimmer MD Primary Care Provider [phone] Tamera Isabel MACHINE PACKAGING TECHNICIAN Unavailable Unavailabl e Encounter Details Date [...] you attend chur ch or buddhism services? Never 05/29/2025 Do [...] the past [address] [facility], were you homeless or living in a [...] drink first t kennedy in the morning (EYE-GRINDER SET UP OPERATOR THREAD) to steady your nerves or to get [...] Description 08/20/2025 9:30 AM EDT Clinical Support [facility] [place] [employer] [address] [place] [address] 08/20/2025 10:30 AM EDT Social Work [facility] [employer] [address] [place] [address] [place] [address] 08/20/2025 11:00 AM EDT Office Visit [facility] [place] [employer] [address] [place] [address] Jude Duque MD [address] [place] [address] 08/22/2025 11:15 AM EDT Appointment [facility] [address] [place] [address] 08/22/2025 12:15 PM EDT Appointment [facility] [address] [place] [address] 08/26/2025 1:00 PM EDT Office Visit [facility] Endocrinology [address] [place] [address] Miranda Hobson P, MAGAZINE WRITER [address] [facility] [address] [place] [address] 08/29/2025 10:00 AM EDT Appointment [facility] [address] [place] [address] 08/29/2025 11:00 AM EDT Appointment [facility] [address] [place] [address] 09/05/2025 10:00 AM EDT Appointment [facility] [address] [place] [address] 09/05/2025 11:00 AM EDT Appointment [facility] [address] [place] [address] documented as of this encounter Visit Diagnoses [...] documented as of this encounter Care Teams Flower Shop Laborer/Designer Relationship Specialty Start Date End Date Alvarez Zimmer MD [address] [place] [address] PCP - General Family Medicine 12/07/24 Lea Fernando [address] [place] [address] Pharmacy Intake Technician Endocrinology 08/29/24 Rachel Ray APRN [address] [place] [address] Nurse Practitioner Gastroenterology 09/24/24 Tamera Isabel LPN VALUE-BASED TRANSFORMATION PROGRAM Licensed Practical Nurse 05/29/25 documented as of this encounter
--- OUTSIDE RECORDS SUMMARY | 2025-08-17 15:23 | XMS_ITS | Clinical Summary ---
Author Organization [facility] Address [address] [place] [address] Care Team Providers Care Shovel Engineer Name Role Phone Lea Fernando Unavailable [phone] Rachel Ray OCCUPATIONAL PHYSICIAN Unavailable [phone] Alvarez Zimmer MD Primary Care Provider [phone] Tamera Isabel HORTICULTURE/FLORICULTURE TEACHER Unavailable Unavailabl e Allergies No known active [...] 26 Active ergocalciferol (Vitamin D-2) 1.25 MG (14988 UT) capsuleIndicati ons:Vitamin D deficiency Take 1 [...] at this time has elected to pursue [facility] placement and would like to speak [...] at this time has elected to pursue Emergency Medcl Emt Care placement and would like to speak [...] significant concern and would prefer JOHN or tank terminal gauger care pending influence on ability to receive transplant - Patient endorsing some burning discomfort that begins in buttocks and radiates down lateral leg, does not feel as though she is getting moved much - Concerned with possible disorientation PLAN - Transplant service to evaluate today and determine if tank terminal gauger care would be a barrier to future [...] Patient will NOT need neutropenic precautions at [facility] outside of the hospital. Assessment & Plan (07/01/2025 1:10 PM EDT): - WBC 3.15 (baseline 4.0) with 1.79 absolute neutrophils, neutropenia resolved today - RBC 2.81 (baseline 3.0), platelets 47 (baseline 55) - Stable up trending toward baseline overall - Patient has a history of SLE on chart review JORDAN positive though not on medication - Stopped seeing parallel computing software engineer after being dismissed for missing too many [...] though not on medication - Stopped seeing parallel computing software engineer after being dismissed for missing too many [...] - Continue daily vit D 1000 U; 64727 U to be ordered on 06/30 if [...] - Continue daily vit D 1000 U; 11149 U to be ordered on 06/30 if [...] - Continue daily vit D 1000 U; 24357 U to be ordered on 06/30 if [...] - Continue daily vit D 1000 U; 79213 U to be ordered on 06/30 if [...] - Continue daily vit D 1000 U; 93254 U to be ordered on 06/30 if [...] daily, Vit D 1000 U daily and 38779 U weekly (Sundays) PLAN: - Admitted to [...] - Continue daily vit D 1000 U; 21960 U to be ordered on 06/30 if [...] at this time has elected to pursue Emergency Medcl Emt Care placement and would like to speak [...] at this time has elected to pursue Emergency Medcl Emt Care placement and would like to speak [...] Consider Palliative consult AM 07/03 - Ongoing [facility] discussions Assessment & Plan (07/01/2025 9:16 AM EDT): - PTOT recs home health - Patient and family have significant concern and would prefer JOHN or tank terminal gauger care pending influence on ability to receive transplant - Patient endorsing some burning discomfort that begins in buttocks and radiates down lateral leg, does not feel as though she is getting moved much - Concerned with possible disorientation PLAN - Transplant service to evaluate today and determine if tank terminal gauger care would be a barrier to future [...] appreciated - Patient agreeable to [facility] facility Assessment & Plan (06/26/2025 3:57 PM [...] - Continue daily vit D 1000 U; 29865 U to be ordered on 06/30 if [...] - Continue daily vit D 1000 U; 05933 U to be ordered on 06/30 if [...] - Continue daily vit D 1000 U; 83292 U to be ordered on 06/30 if [...] - Continue daily vit D 1000 U; 93866 U to be ordered on 06/30 if [...] - Continue daily vit D 1000 U; 24331 U to be ordered on 06/30 if [...] daily, Vit D 1000 U daily and 59098 U weekly (Sundays) PLAN: - Admitted to [...] - Continue daily vit D 1000 U; 40044 U to be ordered on 06/30 if [...] - Continue daily vit D 1000 U; 89554 U to be ordered on 06/30 if [...] - Continue daily vit D 1000 U; 52980 U to be ordered on 06/30 if [...] - Continue daily vit D 1000 U; 10992 U to be ordered on 06/30 if [...] - Continue daily vit D 1000 U; 59026 U to be ordered on 06/30 if [...] come see the patient in person (Dr. Bakc--PGY5) - Consulted hepatology; recommended SBP labs with paracentesis - If creatinine trends up, can consider albumin challenge; per hepatology recs - Consulted IR for paracentesis/ thoracentesis; plan for 06/27 to keep consistent weekly schedule - Continue home lactulose, rifaximin, and ciprofloxacin - Titrated midodrine down from 20 to 10mg TID - Continue daily vit D 1000 U; 90266 U to be ordered on 06/30 if [...] daily, Vit D 1000 U daily and 71450 U weekly (Sundays) PLAN: - Admitted to [...] - Continue daily vit D 1000 U; 05998 U to be ordered on 06/30 if [...] Plan (06/30/2025 1:48 PM EDT): - 06/28 TAX COMPLIANCE OFFICER diet recommendations; see below - Patient continues to eat full diet without difficulty PLAN - Continue to hold omeprazole Assessment & Plan (06/29/2025 12:33 PM EDT): - TAX COMPLIANCE OFFICER attempted to see patient 06/27; was in procedure - 06/28 TAX COMPLIANCE OFFICER diet recommendations: IDDSI Level 7 - Regular and IDDSI Level 0- Thin PLAN - Continue to hold omeprazole Assessment & Plan (06/29/2025 8:30 AM EDT): - TAX COMPLIANCE OFFICER attempted to see patient 8/7; was in procedure PLAN - Awaiting TAX COMPLIANCE OFFICER eval - Continue to hold omeprazole Assessment & Plan (06/27/2025 3:08 PM EDT): - Chronic; advised to hold home omeprazole at most recent nephrology appointment due to concern for CARLOTTA PLAN - Continue to hold omeprazole - Ordered TAX COMPLIANCE OFFICER consult; appreciate recommendations Assessment & Plan (06/26/2025 3:57 PM EDT): - Chronic; advised to hold home omeprazole at most recent nephrology appointment due to concern for CARLOTTA PLAN - Continue to hold omeprazole - Ordered TAX COMPLIANCE OFFICER consult; appreciate recommendations Assessment & Plan (06/26/2025 [...] - Continue daily vit D 1000 U; 11267 U to be ordered on 06/30 if [...] - Continue daily vit D 1000 U; 69044 U to be ordered on 06/30 if [...] - Continue daily vit D 1000 U; 39179 U to be ordered on 06/30 if [...] - Continue daily vit D 1000 U; 59257 U to be ordered on 06/30 if [...] - Continue daily vit D 1000 U; 02639 U to be ordered on 06/30 if [...] daily, Vit D 1000 U daily and 90012 U weekly (Sundays) PLAN: - Admitted to [...] - Continue daily vit D 1000 U; 96557 U to be ordered on 06/30 if [...] at this time has elected to pursue Emergency Medcl Emt Care placement and would like to speak [...] significant concern and would prefer JOHN or tank terminal gauger care pending influence on ability to receive transplant - Patient endorsing some burning discomfort that begins in buttocks and radiates down lateral leg, does not feel as though she is getting moved much - Concerned with possible disorientation PLAN - Transplant service to evaluate today and determine if tank terminal gauger care would be a barrier to future [...] appreciated - Patient agreeable to [facility] facility Assessment & Plan (06/26/2025 3:57 PM [...] 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 Assessment [...] Plan (06/30/2025 1:48 PM EDT): - 06/28 TAX COMPLIANCE OFFICER diet recommendations; see below - Patient continues to eat full diet without difficulty PLAN - Continue to hold omeprazole Assessment & Plan (06/29/2025 12:33 PM EDT): - TAX COMPLIANCE OFFICER attempted to see patient 8/7; was in procedure - 06/28 TAX COMPLIANCE OFFICER diet recommendations: IDDSI Level 7 - Regular and IDDSI Level 0- Thin PLAN - Continue to hold omeprazole Assessment & Plan (06/29/2025 8:30 AM EDT): - TAX COMPLIANCE OFFICER attempted to see patient 8/7; was in procedure PLAN - Awaiting TAX COMPLIANCE OFFICER eval - Continue to hold omeprazole Assessment & Plan (06/27/2025 3:08 PM EDT): - Chronic; advised to hold home omeprazole at most recent nephrology appointment due to concern for CARLOTTA PLAN - Continue to hold omeprazole - Ordered TAX COMPLIANCE OFFICER consult; appreciate recommendations Assessment & Plan (06/26/2025 3:57 PM EDT): - Chronic; advised to hold home omeprazole at most recent nephrology appointment due to concern for CARLOTTA PLAN - Continue to hold omeprazole - Ordered TAX COMPLIANCE OFFICER consult; appreciate recommendations Assessment & Plan (06/26/2025 [...] - Continue daily vit D 1000 U; 50473 U to be ordered on 06/30 if [...] - Continue daily vit D 1000 U; 51271 U to be ordered on 06/30 if [...] - Continue daily vit D 1000 U; 44467 U to be ordered on 06/30 if [...] - Continue daily vit D 1000 U; 11279 U to be ordered on 06/30 if [...] - Continue daily vit D 1000 U; 13593 U to be ordered on 06/30 if [...] daily, Vit D 1000 U daily and 75295 U weekly (Sundays) PLAN: - Admitted to [...] - Continue daily vit D 1000 U; 58485 U to be ordered on 06/30 if [...] - Continue daily vit D 1000 U; 91751 U to be ordered on 06/30 if [...] - Continue daily vit D 1000 U; 86789 U to be ordered on 06/30 if [...] - Continue daily vit D 1000 U; 23127 U to be ordered on 06/30 if [...] - Continue daily vit D 1000 U; 31439 U to be ordered on 06/30 if [...] - Continue daily vit D 1000 U; 16130 U to be ordered on 06/30 if [...] daily, Vit D 1000 U daily and 93908 U weekly (Sundays) PLAN: - Admitted to [...] - Continue daily vit D 1000 U; 01950 U to be ordered on 06/30 if [...] (07/17/2021): Added automatically from request for surgery [id number] Mixed hearing loss of right ear 08/24/2019 [...] Type Department Care Team Description 08/16/2025 Telephone [facility] Endocrinology [address] [place] [address] Sharif Moreno, DPM HCN - Patient Message 2025 8:47 AM EDT - 2025 11:59 PM EDT Hospital Encounter [facility] Inter[facility]iology [address] [place] [address] Kami Cool, RN Alcoholic cirrhosis of liver with ascites (CMS/HCC); Other ascites Discharge Disposition: Home or Self Care 2025 Travel 08/08/2025 2:27 PM EDT - 08/08/2025 11:59 PM EDT Hospital Encounter [facility] Rad[facility] [address] [place] [address] Discharge Disposition: Home or Self Care 08/08/2025 8:51 AM EDT - 08/08/2025 2:26 PM EDT Hospital Encounter [facility]iology [address] [place] [address] Mariam Thomas RN Other ascites Discharge Disposition: Home or Self Care 08/08/2025 Travel 08/05/2025 Travel 08/01/2025 12:48 PM EDT - 08/01/2025 11:59 PM EDT Hospital Encounter [facility] [address] [place] [address] Discharge Disposition: Home or Self Care 08/01/2025 8:36 AM EDT - 08/01/2025 12:47 PM EDT Hospital Encounter [facility]iology [address] [place] [address] Pretty Enriquez RN Other ascites Discharge Disposition: Home or Self Care 08/01/2025 Travel 07/31/2025 Travel 07/25/2025 1:20 PM EDT - 07/25/2025 11:59 PM EDT Hospital Encounter [facility] [address] [place] [address] Discharge Disposition: Home or Self Care 07/25/2025 8:57 AM EDT - 07/25/2025 1:19 PM EDT Hospital Encounter [facility] [address] [place] [address] Kandice Silva, RN Pleural effusion associated with hepatic disorder (Primary Dx); Shortness of breath; Pleural effusion; Other ascites Discharge Disposition: Home or Self Care 07/25/2025 Travel 07/24/2025 Travel 07/19/2025 Patient Outreach POPULATION [address], [address] [place] [address] Jeaneth Oscar LPN [facility] 07/18/2025 12:08 PM EDT - 07/18/2025 11:59 PM EDT Hospital Encounter [facility] [address] [place] [address] Discharge Disposition: Home or Self Care 07/18/2025 9:08 AM EDT - 07/18/2025 12:07 PM EDT Hospital Encounter [facility]iology [address] [place] [address] Stu Samayoa Shortness of breath; Pleural effusion; Other ascites Discharge Disposition: Home or Self Care 07/18/2025 Travel 07/11/2025 12:10 PM EDT - 07/11/2025 11:59 PM EDT Hospital Encounter [facility] [address] [place] [address] Discharge Disposition: Home or Self Care 07/11/2025 9:01 AM EDT - 07/11/2025 12:09 PM EDT Hospital Encounter [facility] [address] [place] [address] Stacy Houston RN Shortness of breath; Pleural effusion; Other ascites Discharge Disposition: Home or Self Care 07/11/2025 Travel 07/10/2025 Patient Outreach POPULATION HEALTH [address], [address] [place] [address] Monique Tapia LPN [facility] 07/07/[address] [address] Lisa Acuna, OCCUPATIONAL PHYSICIAN, DNP ETD (Eustachian tube dysfunction), bilateral 07/04/2025 Travel 07/03/2025 Travel 06/27/2025 Travel 06/26/2025 Patient Outreach POPULATION HEALTH [address], [address] [place] [address] Alina Lovett, RN Link 06/25/2025 2:14 PM EDT - 07/09/2025 1:19 PM EDT Hospital Encounter [facility] Inpatient [address] [place] [address] Kadie Mauro MD [place], [place] [...] Care 06/25/2025 1:00 PM EDT Office Visit [facility] Nephrology, Bone & Mineral Metabolism [address], [address] [place] [address] Arnulfo Joy MD Cirrhosis of liver with ascites, unspecified hepatic cirrhosis type (CMS/HCC) (Primary Dx); CARLOTTA (acute kidney injury) (CMS/HCC); Chronic kidney disease, stage 3b (CMS/HCC); Type 2 diabetes mellitus with hyperglycemia, with long-term current use of insulin ([facility]) 06/25/2025 Travel 06/23/2025 Orders Only External Location [address] [place] [address] Kandice Maldonado, OCCUPATIONAL PHYSICIAN 06/23/2025 Orders Only External Location [address] [place] [address] Kandice Maldonado, OCCUPATIONAL PHYSICIAN 06/23/2025 Orders Only External Location [address] [place] [address] Kandice Maldonado, OCCUPATIONAL PHYSICIAN 06/23/2025 Refill [facility] Bone & Mineral Metabolism [address], [address] [place] [address] Ar Dominique MD Vitamin D deficiency 06/21/[address] [address] Alvarez Zimmer MD HCN Clinical Concern/Question 06/20/2025 1:04 PM EDT - 06/20/2025 11:59 PM EDT Hospital Encounter [facility] [address] [place] [address] Discharge Disposition: Home or Self Care 06/20/2025 9:03 AM EDT - 06/20/2025 1:03 PM EDT Hospital Encounter [facility]iology [address] [place] [address] Toribio Shanthi Other ascites Discharge Disposition: Home or Self Care 06/20/2025 Telephone [facility] [address] [place] [address] Alvarez Zimmer MD 06/20/2025 Orders Only [facility] Vascular Interventional Radiology [address] [place] [address] Preeti Andersen, OCCUPATIONAL PHYSICIAN Other ascites (Primary Dx) 06/20/2025 Travel 06/17/2025 Telephone [facility] Endocrinology [address] [place] [address] Deysi Antonio MD 06/14/2025 Telephone [facility] [address] [place] [address] Alvarez Zimmer MD 06/14/2025 Orders Only [facility] [address] [place] [address] Alvarez Zimmer MD 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) (CMS/HCC) (Primary Dx) 06/14/2025 Orders Only [facility] [address] [place] [address] Marianna Gordon, OCCUPATIONAL PHYSICIAN Shortness of breath (Primary Dx); Pleural effusion; Other ascites 06/14/2025 Telephone [facility] [address] [place] [address] Alvarez Zimmer MD 06/14/2025 Orders Only [facility] [address] [place] [address] Marianna Gordon APRN Other ascites (Primary Dx); Pleural effusion; Shortness of breath; Alcoholic cirrhosis of liver with ascites (CMS/HCC) 06/13/2025 1:32 PM EDT - 06/13/2025 11:59 PM EDT Hospital Encounter [facility] [address] [place] [address] Discharge Disposition: Home or Self Care 06/13/2025 10:56 AM EDT - 06/13/2025 1:31 PM EDT Hospital Encounter [facility] [address] [place] [address] Alvarez Mcclure Other ascites Discharge Disposition: Home or Self Care 06/13/2025 Travel 06/12/2025 Travel 06/12/2025 Orders Only [facility] [address] [place] [address] Alvarez Zimmer MD 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) (CMS/HCC) (Primary Dx); Protein malnutrition (CMS/HCC); Weight loss; Cognitive impairment 06/11/2025 11:20 AM EDT Office Visit [facility] Transplant Center [address] [address] Octavia Herrera, MARIA GUADALUPE Hepatic encephalopathy (CMS/HCC) (Primary Dx); 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 06/11/2025 10:30 AM EDT Social Work [facility] Transplant Center [address] [facility] [address] [place] [address] Lea Reilly LCSW 06/11/2025 Travel 06/10/2025 Results Follow-Up [facility] [address] [place] [address] Alvarez Zimmer MD 06/09/2025 [facility] Bone & Mineral Metabolism [address], [address] [place] [address] Ar Dominique MD Chronic kidney disease, stage 3b (CMS/HCC) 06/06/2025 11:20 AM EDT - 06/06/2025 11:59 PM EDT Hospital Encounter [facility] [address] [place] [address] Discharge Disposition: Home or Self Care 06/06/2025 7:58 AM EDT - 06/06/2025 11:19 AM EDT Hospital Encounter [facility] [address] [place] [address] Golden Wilhelm, RN Other ascites Discharge Disposition: Home or Self Care 06/06/2025 Travel 06/05/2025 2:00 PM EDT Office Visit [address] [address] Alvarez Zimmer MD Medicare annual wellness visit, initial (Primary Dx); 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); Diabetic [...] Hyperbilirubinemia; Protein malnutrition (CMS/HCC) 06/05/2025 Travel 06/01/2025 [facility] Bone [facility] Mineral Metabolism [address], [address] [place] [address] Ar Dominique MD Chronic kidney disease, stage 3b (CMS/HCC) 06/01/2025 [facility] Transplant Center [address] [place] [address] Octavia Herrera, PA 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) (CMS/HCC) 05/31/2025 12:36 PM EDT - 05/31/2025 8:07 PM EDT Emergency [facility] Emergency Department [address] [place] [address] Torrie Turner MD Katirji, Linda Y, MD Altered mental status, unspecified altered mental status type (Primary Dx) Discharge Disposition: Home or Self Care 05/31/2025 Travel 05/30/2025 8:58 AM EDT - 05/30/2025 11:59 PM EDT Hospital Encounter [facility]iology [address] [place] [address] Shirley Remy RN Other ascites; Type 2 diabetes mellitus with hyperglycemia, with long-term current use of insulin (CMS/HCC); Chronic kidney disease, stage 3b (CMS/HCC) Discharge Disposition: Home or Self Care 05/30/2025 Travel 05/29/2025 Patient Outreach POPULATION [facility] [address] [place] [address] Tamera Isabel LPN [facility] 05/29/2025 Travel 05/28/2025 Travel 05/23/2025 12:19 PM EDT - 05/23/2025 11:59 PM EDT Hospital Encounter [facility] [address] [place] [address] Discharge Disposition: Home or Self Care 05/23/2025 8:48 AM EDT - 05/23/2025 12:18 PM EDT Hospital Encounter [facility]iology [address] [place] [address] Kael Mohan, RN Other ascites Discharge Disposition: Home or Self Care 05/23/2025 8:31 AM EDT - 05/23/2025 8:47 AM EDT Hospital Encounter [facility]iology [address] [place] [address] Kael Mohan, RN Other ascites; End-stage liver disease (CMS/HCC); Type 2 diabetes mellitus with hyperglycemia, with long-term current use of insulin (CMS/HCC) Discharge Disposition: Home or Self Care 05/23/2025 Orders Only [facility] Endocrinology [address] [place] [address] Enmanuel Wetzel MD 05/23/2025 Results Follow-Up [facility] Transplant Center [address] [place] [address] Wilma Arana RN 05/23/2025 Travel 05/22/2025 Travel 05/21/2025 [facility] [address] [place] [address] Alvarez Zimmer MD 05/21/2025 [facility] Bone & Mineral Metabolism [address], [address] [place] [address] Ar Dominique MD Chronic kidney disease, stage 3b (CMS/HCC) 05/18/2025 Travel 05/17/2025 9:20 AM EDT Office Visit [facility] Endocrinology [address] [place] [address] Enmanuel Wetzel MD Type 2 diabetes mellitus with hyperglycemia, with long-term current use of insulin (CMS/[facility]) (Primary Dx); Chronic kidney disease, stage 3b [...] How often do you attend chur or taoist services? Patient unable to answer [...] How often do you attend chur or taoist services? Never 05/29/2025 Do you belong to [...] more drinks on one occasion? Never 06/25/2025 [facility] Occupat ional Health - Occupational Stress [...] drink first t kennedy in the morning (EYE-PAYLOADER OPERATOR) to steady your nerves or to [...] Description 08/20/2025 9:30 AM EDT Clinical Support [facility] Transplant [place] [address] [place] [address] 08/20/2025 10:30 AM EDT Social Work [facility] Transplant [place] [address] [place] [address] [place] [address] 08/20/2025 11:00 AM EDT Office Visit [facility] Transplant [place] [address] [place] [address] Jude Duque MD [address] [place] [address] 08/22/2025 11:15 AM EDT Appointment [facility] [address] [place] [address] 08/22/2025 12:15 PM EDT Appointment [facility] [address] [place] [address] 08/26/2025 1:00 PM EDT Office Visit [facility] Endocrinology [address] [place] [address] Miranda Hobson, OCCUPATIONAL PHYSICIAN [address] [facility] [address] [place] [address] 08/29/2025 10:00 AM EDT Appointment [facility] [address] [place] [address] 08/29/2025 11:00 AM EDT Appointment [facility] [address] [place] [address] 09/05/2025 10:00 AM EDT Appointment [facility] [address] [place] [address] 09/05/2025 11:00 AM EDT Appointment [facility] [address] [place] [address] Health Maintenance Due Date Last Done Comments Dental Prophylaxis 1960 Dental X-Ray: Bitewings 1962 Dental X-Ray: Full Mouth 1962 [facility]Y-Infant/Child/Adol SDOH Screenings 1962 [id number] Vaccine (#1) 1967 Diabetes: Dental Exam 1972 [...] this written report. Preliminary report signed by OSLANGE Toure on 2025 11:16 AM By electronically [...] hepatic hydrothorax. Patient presents for paracentesis. TECHNIQUE: Coordinator Hotels: [employer] [place] Secondary Mortgage Loan Reviewer: None. Rad Dose: NA Medications: Continuous physiologic [...] intermittenthepatic hydrothorax. Patient presents for paracentesis. TECHNIQUE: Coordinator Hotels: [employer] [place] Secondary Mortgage Loan Reviewer: None. Rad Dose: NA Medications: Continuous physiologic [...] 08/17/2025 1:13 AM us Marianna N Cheeks OCCUPATIONAL PHYSICIAN IMG US PROCEDURES Final Resu lt * [...] hepatic hydrothorax. Patient presents for thoracentesis. TECHNIQUE: Coordinator Hotels: [employer] [place] Procedure: Limited chest ultrasound completed [...] intermittenthepatic hydrothorax. Patient presents for thoracentesis. TECHNIQUE: Coordinator Hotels: [employer] [place] Procedure: Limited chest ultrasound completed [...] Fluid Peritoneal Fluid 2025 2:25 PM EDT [facility] Specimen Type Body Fluid 2025 2:25 PM EDT [facility] Color, Body fluid Yellow LAB HEMATOLOGY METHOD 2025 2:25 PM EDT [facility] Appearance, Body fluid Cloudy(A) LAB HEMATOLOGY METHOD 2025 2:25 PM EDT [facility] Volume, Body fluid 45.0 cc LAB HEMATOLOGY METHOD 2025 2:25 PM EDT [facility] Red Blood Cell Count, Body fluid 4,000 uL LAB HEMATOLOGY METHOD 2025 2:25 PM EDT [facility] Total Nucleated Cell Count, Body fluid 129 uL LAB HEMATOLOGY METHOD 2025 2:25 PM EDT [facility] Fluid Container Specimen received in miscellaneous container LAB HEMATOLOGY METHOD 2025 2:25 PM EDT [facility] Body Fluid Peritoneal fluid / Unknown Non-blood Collection / Unknown 2025 9:25 AM EDT 2025 10:44 AM EDT us Micheal E Pee OCCUPATIONAL PHYSICIAN, DNP LAB BODY FLUIDS AND ST OOLS ORDERABLES Final Result Performing Organization Address [facility] Co de Phone Number [facility] [address] [place] [address] * Total Protein, Peritoneal Fluid (2025 9:25 AM EDT) Only the most recent of11 resultswithin the time period is included. Total Protein, Fluid 0.8 g/dL 2025 11:55 AM EDT [facility] Peritoneal Fluid Peritoneal cavity structure / Unknown Non-blood Collection / Unknown 2025 9:25 AM EDT 2025 10:45 AM EDT Narrative [facility] - 2025 11:55 AM EDT This test was developed and its performance characteristics determined by [facility]. The U.S. Food and Drug Administration has not approved or cleared this test. However, FDA clearance or approval is not currently required for clinical use. The results are not intended to be used as the sole means for clinical diagnosis or patient management decisions. us Micheal E Pee OCCUPATIONAL PHYSICIAN, DNP LAB BODY FLUIDS AND ST OOLS ORDERABLES Final Result Performing Organization Address City/[facility]/ZIP Co de Phone Number [facility] [address] [place] [address] * XR Chest 1 View (08/08/2025 2:54 [...] on 08/08/2025 3:10 PM us Shaniqua Mccurdy OCCUPATIONAL PHYSICIAN IMG XR PROCEDURES Final Resu lt * [...] Comment 08/08/2025 1:44 PM EDT [facility] Mortgage Loan Reviewer ID Mariam Thomas 08/08/2025 1:44 PM EDT [facility] Device ID [id number] 08/08/2025 1:44 PM EDT [facility] Specimen Type POC Capillary 08/08/2025 1:44 PM EDT [facility] Blood Capillary blood specimen / Unknown 08/08/2025 1:42 PM EDT 08/08/2025 1:44 PM EDT Mariam Thomas CHUCK SPLITTER POINT OF CARE T EST DOCKED DEVICE UNSOLICITED RESULTS Final Result Performing Organization Address City/State/[facility] Co de Phone Number [facility] [address] [place] [address] * US Guided Thoracentesis (08/08/2025 12:19 PM [...] cirrhosis with ascites and hepatic hydrothorax. TECHNIQUE: Coordinator Hotels: Shaniqua Mccurdy APRN Secondary Mortgage Loan Reviewer: None. Rad Dose: NA Medications: Continuous physiologic [...] decompensated cirrhosis with ascites and hepatichydrothorax. TECHNIQUE: Coordinator Hotels: Shaniqua Mccurdy APRN Secondary Mortgage Loan Reviewer: None. Rad Dose: NA Medications: Continuous physiologic [...] 08/08/2025 1:58 PM us Marianna Dixon Gordon OCCUPATIONAL PHYSICIAN IMG US PROCEDURES Final Resu lt * (ABNORMAL) Body Fluid Cell Count With Diff - Ascites (08/08/2025 11:32 AM EDT) Only the most recent of13 resultswithin the time period is included. Color, Body fluid Yellow LAB HEMATOLOGY METHOD 08/08/2025 4:39 PM EDT [facility] Appearance, Body fluid Cloudy(A) LAB HEMATOLOGY METHOD 08/08/2025 4:39 PM EDT [facility] Volume, Body fluid 8.0 cc LAB HEMATOLOGY METHOD 08/08/2025 4:39 PM EDT [facility] Fluid Container Tube 3 LAB HEMATOLOGY METHOD 08/08/2025 4:39 PM EDT [facility] Red Blood Cell Count, Body fluid 4,000 uL LAB HEMATOLOGY METHOD 08/08/2025 4:39 PM EDT [facility] Total Nucleated Cell Count, Body fluid 122 uL LAB HEMATOLOGY METHOD 08/08/2025 4:39 PM EDT [facility] Neutrophils %, Body fluid 2 % LAB HEMATOLOGY METHOD 08/08/2025 4:39 PM EDT [facility] Lymphocytes %, Body fluid 93 % LAB HEMATOLOGY METHOD 08/08/2025 4:39 PM EDT [facility] Monocytes/Macro phages %, Body fluid 5 % LAB HEMATOLOGY METHOD 08/08/2025 4:39 PM EDT [facility] Eosinophils %, Body fluid 0 % LAB HEMATOLOGY METHOD 08/08/2025 4:39 PM EDT [facility] Lining/Mesothel ial Cells %, Body fluid 0 % LAB HEMATOLOGY METHOD 08/08/2025 4:39 PM EDT [facility] Neutrophils Absolute (PMN), Body fluid 2 uL LAB HEMATOLOGY METHOD 08/08/2025 4:39 PM EDT [facility] Lymphocytes Absolute, Body fluid 113 uL LAB HEMATOLOGY METHOD 08/08/2025 4:39 PM EDT [facility] Monocytes/Macro phages Absolute, Body fluid 6 uL LAB HEMATOLOGY METHOD 08/08/2025 4:39 PM EDT [facility] Eosinophils Absolute, Body fluid 0 uL LAB HEMATOLOGY METHOD 08/08/2025 4:39 PM EDT [facility] Basophils Absolute, Body fluid 0 uL LAB HEMATOLOGY METHOD 08/08/2025 4:39 PM EDT [facility] Lining/Mesothel ial Cells Absolute, Body fluid 0 uL LAB HEMATOLOGY METHOD 08/08/2025 4:39 PM EDT [facility] Basophils %, Body fluid 0 % LAB HEMATOLOGY METHOD 08/08/2025 4:39 PM EDT [facility] Body Fluid Peritoneal fluid / Unknown Non-blood Collection / Unknown 08/08/2025 11:32 AM EDT 08/08/2025 2:47 PM EDT Shaniqua Mccurdy APRN LAB BODY FLUIDS AND STOOLS ORDERABLES NO SPECIMEN TYPE/SOURCE Final Result Performing Organization Address [facility] de Phone Number [facility] [address] [place] [address] * Body fluid, cytospin, pathologist interpretation (08/08/2025 11:32 AM EDT) Only the most recent of13 resultswithin the time period is included. Specimen Type Body Fluid LAB HEMATOLOGY METHOD 08/09/2025 5:55 PM EDT [facility] Specimen Source, Body Fluid Peritoneal Fluid LAB HEMATOLOGY METHOD 08/09/2025 5:55 PM EDT [facility] Clinical Diagnosis, Body Fluid Decompensated cirrhosis MASH, Ascites LAB HEMATOLOGY METHOD 08/09/2025 5:55 PM EDT [facility] Interpretation , Body Fluid No evidence of malignancy Chronic inflammatory cells Lymphocytosis Light blood A resident was involved in the service. I attest I examined the relevant preparations for the specimens and confirmed the diagnosis or interpretation. 08/09/2025 5:55 PM EDT [facility] Pathologist Signature, Body Fluid 08/09/2025 5:55 PM EDT [facility] Comment:Reviewed by: Kadie dobbs MD LAB CP ASR DISCLAIMER Yes 08/09/2025 5:55 PM EDT [facility] Body Fluid Peritoneal fluid / Unknown Non-blood Collection / Unknown 08/08/2025 11:32 AM EDT 08/08/2025 2:47 PM EDT us Shaniqua Mccurdy OCCUPATIONAL PHYSICIAN LAB BODY FLUIDS AND STOOLS O RDERABLES Final Result Performing Organization Address City/[facility]/ZIP Co de Phone Number [facility] [address] [place] [address] * Glucose - Ascites (08/08/2025 11:32 AM EDT) Only the most recent of5 resultswithin the time period is included. Glucose, Fluid 317 mg/dL 08/08/2025 3:30 PM EDT [facility] Peritoneal Fluid Peritoneal cavity structure / Unknown Non-blood Collection / Unknown 08/08/2025 11:32 AM EDT 08/08/2025 2:47 PM EDT Narrative [facility] - 08/08/2025 3:30 PM EDT [...] < 50 mg/dL. us Shaniqua Nicole Mccurdy OCCUPATIONAL PHYSICIAN LAB BODY FLUIDS AND STOOLS O RDERABLES Final Result [facility] [address] [place] [address] * US Abdomen Focused Region Other (07/11/2025 [...] by ascites and intermittent hepatic hydrothorax TECHNIQUE: Coordinator Hotels: ADRI [place] Procedure: Limited abdominal ultrasound COMPARISON: [...] complicated by ascites and intermittenthepatic hydrothorax TECHNIQUE: Coordinator Hotels: ADRI [place] Procedure: Limited abdominal ultrasound COMPARISON: [...] on 07/11/2025 4:21 PM us Marianna Gordon OCCUPATIONAL PHYSICIAN IMG US PROCEDURES Final Resu lt * (ABNORMAL) Protime-INR (07/09/2025 5:52 AM EDT) Only the most recent of12 resultswithin the time period is included. Prothrombin Time 23.5(H) 12.0 - 14.3 sec 07/09/2025 6:07 AM EDT [facility] INR 2.0(H) 0.9 - 1.1 07/09/2025 6:07 AM EDT [facility] Blood Venous blood specimen / Unknown [...] INR 2.5 to 3.5 Prevention of recurrent NE INR 2.5 to 3.5 us Fabiana Cunningham MD LAB BLOOD ORDERABLES Final Resu lt [facility] [address] [place] [address] * (ABNORMAL) CBC and Differential (07/09/2025 3:22 AM EDT) Only the most recent of17 resultswithin the time period is included. WBC Count 3.24(L) 3.70 - 10.30 10*3/uL LAB HEMATOLOGY METHOD 07/09/2025 3:[address] [facility] RBC Count 2.67(L) 3.90 - 5.20 10*6/uL LAB HEMATOLOGY METHOD 07/09/2025 3:[address] [facility] HGB 8.4(L) 11.2 - 15.7 g/dL LAB HEMATOLOGY METHOD 07/09/2025 3:[address] [facility] HCT 25.0(L) 34.0 - 45.0 % LAB HEMATOLOGY METHOD 07/09/2025 3:[address] [facility] Platelet Count 51(L) 155 - 369 10*3/uL LAB HEMATOLOGY METHOD 07/09/2025 3:[address] [facility] MCV 94 79 - 98 fL LAB HEMATOLOGY METHOD 07/09/2025 3:[address] [facility] MCH 31.5 26.0 - 32.0 pg LAB HEMATOLOGY METHOD 07/09/2025 3:[address] [facility] MCHC 33.6 30.7 - 35.5 g/dL LAB HEMATOLOGY METHOD 07/09/2025 3:[address] [facility] RDW 16.2(H) 11.5 - 14.5 % LAB HEMATOLOGY METHOD 07/09/2025 3:[address] [facility] MPV 11.8 8.8 - 12.5 fL LAB HEMATOLOGY METHOD 07/09/2025 3:[address] [facility] nRBC 0.0 <=0.0 per 100 WBCs LAB HEMATOLOGY METHOD 07/09/2025 3:[address] [facility] Differential Type Automated LAB HEMATOLOGY METHOD 07/09/2025 3:[address] [facility] Neutrophils % 57 % LAB HEMATOLOGY METHOD 07/09/2025 3:[address] [facility] Lymphocytes % 23 % LAB HEMATOLOGY METHOD 07/09/2025 3:42 AM EDT [facility] Monocytes % 16 % LAB HEMATOLOGY METHOD 07/09/2025 3:42 AM EDT [facility] Eosinophils % 3 % LAB HEMATOLOGY METHOD 07/09/2025 3:[address] [facility] Basophils % 1 % LAB HEMATOLOGY METHOD 07/09/2025 3:[address] [facility] Immature Granulocytes % 0 % LAB HEMATOLOGY METHOD 07/09/2025 3:[address] [facility] Neutrophils Absolute 1.84 1.60 - 6.10 10*3/uL LAB HEMATOLOGY METHOD 07/09/2025 3:[address] [facility] Lymphocytes Absolute 0.73(L) 1.20 - 3.90 10*3/uL LAB HEMATOLOGY METHOD 07/09/2025 3:[address] [facility] Monocytes Absolute 0.52 0.30 - 0.90 10*3/uL LAB HEMATOLOGY METHOD 07/09/2025 3:[address] [facility] Eosinophils Absolute 0.11 0.00 - 0.50 10*3/uL LAB HEMATOLOGY METHOD 07/09/2025 3:[address] [facility] Basophils Absolute 0.03 0.00 - 0.10 10*3/uL LAB HEMATOLOGY METHOD 07/09/2025 3:[address] [facility] Immature Granulocytes [...] ORDERABLES Final Result [facility] [address] [place] [address] * Phosphorus, Plasma (07/09/2025 3:22 AM EDT) Only the most recent of16 resultswithin the time period is included. Phosphorus, Plasma 3.6 2.5 - 4.5 mg/dL 07/09/2025 4:00 AM EDT [facility] Blood Venous blood specimen / Unknown Venipuncture / Unknown 07/09/2025 3:22 AM EDT 07/09/2025 3:39 AM EDT us Chilo Loyola MD LAB BLOOD ORDERABLES Final Result Performing Organization Address [facility] de Phone Number [facility] [address] [place] [address] * Magnesium, Plasma (07/09/2025 3:22 AM EDT) Only the most recent of17 resultswithin the time period is included. Magnesium, Plasma 1.9 1.9 - 2.4 mg/dL 07/09/2025 4:[address] [facility] Blood Venous blood specimen / Unknown Venipuncture / Unknown 07/09/2025 3:22 AM EDT 07/09/2025 3:39 AM EDT us Chilo Loyola MD LAB BLOOD ORDERABLES Final Result Performing Organization Address [facility] de Phone Number [facility] [address] [place] [address] * (ABNORMAL) Comprehensive metabolic panel (07/09/2025 3:22 AM EDT) Only the most recent of18 resultswithin the time period is included. Glucose, Plasma 105(H) 74 - 99 mg/dL 07/09/2025 4:[address] [facility] BUN, Plasma 22 8 - 23 mg/dL 07/09/2025 4:[address] [facility] Creatinine, Plasma 1.22(H) 0.60 - 1.10 mg/dL 07/09/2025 4:[address] [facility] BUN/Creatinine Ratio 18 07/09/2025 4:[address] [facility] Sodium, Plasma 136 136 - 145 mmol/L 07/09/2025 4:[address] [facility] Potassium, Plasma 4.1 3.6 - 4.9 mmol/L 07/09/2025 4:[address] [facility] Chloride, Plasma 108(H) 97 - 107 mmol/L 07/09/2025 4:[address] [facility] CO2, Plasma 18(L) 22 - 29 mmol/L 07/09/2025 4:[address] [facility] Anion Gap 10 6 - 16 mmol/L 07/09/2025 4:[address] [facility] Total Calcium, Plasma 8.5(L) 8.9 - 10.2 mg/dL 07/09/2025 4:[address] [facility] Total Protein 6.2(L) 6.3 - 7.9 g/dL 07/09/2025 4:[address] [facility] Albumin, Plasma 3.5 3.5 - 5.2 g/dL 07/09/2025 4:[address] [facility] AST, Plasma 39(H) 10 - 35 U/L 07/09/2025 4:[address] [facility] ALT, Plasma 19 10 - 35 U/L 07/09/2025 4:[address] [facility] Alkaline Phosphatase, Plasma 170(H) 46 - 142 U/L 07/09/2025 4:[address] [facility] Total Bilirubin, Plasma 2.7(H) 0.2 - 1.1 mg/dL 07/09/2025 4:[address] [facility] eGFRcr 50.3 mL/min/1.7 3m*2 07/09/2025 4:[address] [facility] Comment:Reported eGFRcr in m L/min/1.73m2 is based the CKD-EPI 2020 equation that does not use a race coefficient. Blood Venous blood specimen / Unknown Venipuncture / Unknown 07/09/2025 3:22 AM EDT 07/09/2025 3:39 AM EDT us Chilo Loyola MD LAB BLOOD ORDERABLES Final Result [facility] [address] [place] [address] * (ABNORMAL) Ammonia, Plasma (07/08/2025 4:21 AM EDT) Only the most recent of4 resultswithin the time period is included. Ammonia 146(H) 11 - 51 umol/L 07/08/2025 4:[address] [facility] Blood Venous blood specimen / Unknown Venipuncture / Unknown 07/08/2025 4:21 AM EDT 07/08/2025 4:27 AM EDT us Kayla Reed MD LAB BLOOD ORDERABLES Tari l Result Performing Organization Address City/[facility]/ZIP Co de Phone Number [facility] [address] [place] [address] * Total Protein, Pleural Fluid - Pleural Right (07/04/2025 10:48 AM EDT) Only the most recent of2 resultswithin the time period is included. Total Protein, Fluid 2.1 g/dL 07/04/2025 4:42 PM EDT [facility] Pleural Fluid Structure of right pleural cavity / Unknown Non-blood Collection / Unknown 07/04/2025 10:48 AM EDT 07/04/2025 12:11 PM EDT Narrative [facility] - 07/04/2025 4:42 PM EDT This test was developed and its performance characteristics determined by [facility]. The U.S. Food and Drug Administration has not approved or cleared this test. However, FDA clearance or approval is not currently required for clinical use. The results are not intended to be used as the sole means for clinical diagnosis or patient management decisions. us Fabiana Cunningham MD LAB BODY FLUIDS AND STOOLS VINCENT CATES Final Result Performing Organization Address City/[facility]/ZIP Co de Phone Number [facility] [address] [place] [address] * Lactate Dehydrogenase, Pleural Fluid - Right (07/04/2025 10:48 AM EDT) Only the most recent of2 resultswithin the time period is included. LDH, Fluid 69 U/L 07/04/2025 4:42 PM EDT [facility] Pleural Fluid Structure of right pleural cavity / Unknown Non-blood Collection / Unknown 07/04/2025 10:48 AM EDT 07/04/2025 12:11 PM EDT Narrative [facility] - 07/04/2025 4:42 PM EDT [...] the following criteria are present: (1) pleural kdjll-ec-zkxcp protein ratio of >0.5, (2) pleural wcfyy-az-vrffg LDH ratio of >0.6, or (3) a pleural fluid LDH activity that is >2/3 the upper limit of a normal serum LDH activity. Light's criteria may misclassify ~25% of transudates as exudates in heart failure. These can be identified by calculating a nxiho-fp-aexyojj albumin gradient (>1.2 g/dL) and/or a oihcl-gz-carig protein gradient (>3.1 g/dL). Fabiana Cunningham MD LAB BODY FLUIDS AND STOOLS QIANLoyd LOAN Final Result [facility] [address] [place] [address] * Body Fluid Culture and Gram Stain - Pleural Right (07/04/2025 10:48 AM EDT) Only the most recent of4 resultswithin the time period is included. Culture No growth at day 4 2024 7:42 AM EDT [facility] Gram Stain Result Few Polymorphonuclear leukocytes 07/07/2025 7:42 AM EDT [facility] Gram Stain Result No organisms seen 07/07/2025 7:42 AM EDT [facility] Pleural Fluid Specimen from pleura obtained by thoracentesis / Unknown Non-blood Collection / Unknown 07/04/2025 10:48 AM EDT 07/04/2025 12:41 PM EDT Fabiana Cunningham MD LAB MICROBIOLOGY - GENERAL ORDLoyd CATES Final Result Performing Organization Address City/[facility]/ZIP Co de Phone Number [facility] [address] [place] [address] * LDH - Ascites (07/04/2025 10:08 AM EDT) Only the most recent of2 resultswithin the time period is included. LDH, Fluid 63 U/L 07/04/2025 3:52 PM EDT [facility] Ascites Peritoneal cavity structure / Unknown 07/04/2025 10:08 AM EDT 07/04/2025 12:10 PM EDT Narrative [facility] - 07/04/2025 3:52 PM EDT [...] VINCENT CATES Final Result Performing Organization Address [facility] Co de Phone Number [facility] [address] [place] [address] * XR Abdomen 1 View (07/03/2025 7:02 [...] 07/03/2025 7:31 PM Final report signed by Adir Marie MD on 07/03/2025 7:32 PM Fabiana Cunningham MD IMG XR PROCEDURES Final Result * Urea nitrogen, urine (07/02/2025 12:42 PM EDT) Only the most recent of2 resultswithin the time period is included. Urea Nitrogen, Urine 821 mg/dL 07/02/2025 4:26 PM EDT [facility] Urine Urine specimen obtained by clean catch procedure / Unknown Non-blood Collection / Unknown 07/02/2025 12:42 PM EDT 07/02/2025 1:01 PM EDT Fabiana Cunningham MD LAB URINE ORDERABLES Final Resu lt [facility] [address] [place] [address] * Sodium, urine, random (07/02/2025 12:42 PM EDT) Sodium, Urine <20 mmol/L 07/02/2025 1:[address] [facility] Urine Urine specimen obtained by clean catch procedure / Unknown Non-blood Collection / Unknown 07/02/2025 12:42 PM EDT 07/02/2025 1:01 PM EDT us Fabiana Cunningham MD LAB URINE ORDERABLES Final Resu lt Performing Organization Address [facility] Co de Phone Number [facility] [address] [place] [address] * Osmolality, urine (07/02/2025 12:42 PM EDT) Osmolality, Urine 467 50 - 1,200 mOsm/kg 07/02/2025 4:32 PM EDT [facility] Urine Urine specimen obtained by clean catch procedure / Unknown Non-blood Collection / Unknown 07/02/2025 12:42 PM EDT 07/02/2025 1:01 PM EDT us Fabiana Cunningham MD LAB URINE ORDERABLES Final Resu lt Performing Organization Address [facility] Co de Phone Number [facility] [address] [place] [address] * Creatinine, urine, random (07/02/2025 12:42 PM EDT) Creatinine, Urine 146 mg/dL 07/02/2025 1:[address] [facility] Urine Urine specimen obtained by clean catch procedure / Unknown Non-blood Collection / Unknown 07/02/2025 12:42 PM EDT 07/02/2025 1:01 PM EDT us Fabiana Cunningham MD LAB URINE ORDERABLES Final Resu lt Performing Organization Address [facility] Co de Phone Number [facility] [address] [place] [address] * (ABNORMAL) Peripheral Blood Smear (06/30/2025 12:37 AM EDT) WBC Count 2.74(L) 3.70 - 10.30 10*3/uL LAB HEMATOLOGY METHOD 06/30/2025 1:[address] [facility] RBC Count 2.74(L) 3.90 - 5.20 10*6/uL LAB HEMATOLOGY METHOD 06/30/2025 1:[address] [facility] HGB 8.4(L) 11.2 - 15.7 g/dL LAB HEMATOLOGY METHOD 06/30/2025 1:[address] [facility] HCT 24.8(L) 34.0 - 45.0 % LAB HEMATOLOGY METHOD 06/30/2025 1:[address] [facility] Platelet Count 40(L) 155 - 369 10*3/uL LAB HEMATOLOGY METHOD 06/30/2025 1:[address] [facility] MCV 91 79 - 98 fL LAB HEMATOLOGY METHOD 06/30/2025 1:[address] [facility] MCH 30.7 26.0 - 32.0 pg LAB HEMATOLOGY METHOD 06/30/2025 1:[address] [facility] MCHC 33.9 30.7 - 35.5 g/dL LAB HEMATOLOGY METHOD 06/30/2025 1:[address] [facility] RDW 15.3(H) 11.5 - 14.5 % LAB HEMATOLOGY METHOD 06/30/2025 1:[address] [facility] MPV 10.3 8.8 - 12.5 fL LAB HEMATOLOGY METHOD 06/30/2025 1:[address] [facility] nRBC 0.0 <=0.0 per 100 WBCs LAB HEMATOLOGY METHOD 06/30/2025 1:[address] [facility] Differential Type Automated LAB HEMATOLOGY METHOD 06/30/2025 1:[address] [facility] Neutrophils % 54 % LAB HEMATOLOGY METHOD 06/30/2025 1:[address] [facility] Lymphocytes % 27 % LAB HEMATOLOGY METHOD 06/30/2025 1:[address] [facility] Monocytes % 16 % LAB HEMATOLOGY METHOD 06/30/2025 1:[address] [facility] Eosinophils % 3 % LAB HEMATOLOGY METHOD 06/30/2025 1:[address] [facility] Basophils % 0 % LAB HEMATOLOGY METHOD 06/30/2025 1:[address] [facility] Immature Granulocytes % 0 % LAB HEMATOLOGY METHOD 06/30/2025 1:[address] [facility] Neutrophils Absolute 1.45(L) 1.60 - 6.10 10*3/uL LAB HEMATOLOGY METHOD 06/30/2025 1:[address] [facility] Lymphocytes Absolute 0.73(L) 1.20 - 3.90 10*3/uL LAB HEMATOLOGY METHOD 06/30/2025 1:28 AM [facility]T [facility] Monocytes Absolute 0.45 0.30 - 0.90 10*3/uL LAB HEMATOLOGY METHOD 06/30/2025 1:[address] [facility] Eosinophils Absolute 0.09 0.00 - 0.50 10*3/uL LAB HEMATOLOGY METHOD 06/30/2025 1:[address] [facility] Basophils Absolute 0.01 0.00 - 0.10 10*3/uL LAB HEMATOLOGY METHOD 06/30/2025 1:[address] [facility] Immature Granulocytes Absolute 0.01 0.00 - 0.06 10*3/uL LAB HEMATOLOGY METHOD 06/30/2025 1:[address] [facility] Blood Venous blood specimen / Unknown Venipuncture / Unknown 06/30/2025 12:37 AM EDT 06/30/2025 12:[address] [facility] - 06/30/2025 1:28 AM EDT Therapeutic decision making should be based on absolute values, rather than percentages. Fabiana Cunningham MD LAB PATHOLOGY ORDERABLES Final Result Performing Organization Address City/State/[facility] de Phone Number [facility] [address] [place] [phone] * Peripheral blood smear, pathologist interpretation (06/30/2025 12:37 AM EDT) Clinical Diagnosis, Peripheral Smear Pancytopenia LAB HEMATOLOGY METHOD 07/01/2025 12:[address] [facility] Interpretation , Peripheral Smear Pancytopenia, not morphologically distinct 07/01/2025 12:[address] [facility] Pathologist Signature, Peripheral Smear 07/01/2025 12:[address] [facility] Comment:Reviewed by: Stacy King MD LAB CP ASR DISCLAIMER No 07/01/2025 12:[address] [facility] Blood Venous blood specimen / Unknown Venipuncture / Unknown 06/30/2025 12:37 AM EDT 06/30/2025 12:40 AM EDT Fabiana Cunningham MD LAB PATHOLOGY ORDERABLES Final Result Performing Organization Address City/State/[facility] de Phone Number [facility] [address] [place] [address] * (ABNORMAL) Prealbumin (06/28/2025 3:50 AM EDT) Only the most recent of2 resultswithin the time period is included. Prealbumin, Plasma 5.0(L) 20.0 - 41.0 mg/dL 06/28/2025 1:42 PM EDT [facility] Blood Venous blood specimen / Unknown Venipuncture / Unknown 06/28/2025 3:50 AM EDT 06/28/2025 4:27 AM EDT Chilo Loyola MD LAB BLOOD ORDERABLES Final Result Performing Organization Address [facility] Center/[facility] de Phone Number [facility] [address] [place] [address] * (ABNORMAL) APTT (06/27/2025 2:37 PM EDT) [facility] aPTT 42(H) 25 - 35 sec 06/27/2025 3:[address] [facility] Blood Venous blood specimen / Unknown Venipuncture / Unknown 06/27/2025 2:37 PM EDT 06/27/2025 2:44 PM EDT Chilo Loyola MD LAB BLOOD ORDERABLES Final Result Performing Organization Address City/[facility] de Phone Number [facility] [address] [place] [address] * (ABNORMAL) Basic metabolic panel (06/27/2025 2:37 PM EDT) Only the most recent of2 resultswithin the time period is included. Glucose, Plasma 90 74 - 99 mg/dL 06/27/2025 3:[address] [facility] BUN, Plasma 29(H) 8 - 23 mg/dL 06/27/2025 3:[address] [facility] Creatinine, Plasma 1.83(H) 0.60 - 1.10 mg/dL 06/27/2025 3:[address] [facility] BUN/Creatinine Ratio 16 06/27/2025 3:[address] [facility] Sodium, Plasma 139 136 - 145 mmol/L 06/27/2025 3:[address] [facility] Potassium, Plasma 3.7 3.6 - 4.9 mmol/L 06/27/2025 3:[address] [facility] Chloride, Plasma 108(H) 97 - 107 mmol/L 06/27/2025 3:[address] [facility] CO2, Plasma 19(L) 22 - 29 mmol/L 06/27/2025 3:[address] [facility] Anion Gap 12 6 - 16 mmol/L 06/27/2025 3:[address] [facility] Total Calcium, Plasma 8.6(L) 8.9 - 10.2 mg/dL 06/27/2025 3:[address] [facility] eGFRcr 30.9 mL/min/1.7 3m*2 06/27/2025 3:[address] [facility] Comment:Reported eGFRcr in m L/min/1.73m2 is based the CKD-EPI 2020 equation that does not use a race coefficient. Blood Venous blood specimen / Unknown Venipuncture / Unknown 06/27/2025 2:37 PM EDT 06/27/2025 2:44 PM EDT Chilo Loyola MD LAB BLOOD ORDERABLES Final Result [facility] [address] [place] [address] * Albumin - Ascites (06/27/2025 9:16 AM EDT) Only the most recent of3 resultswithin the time period is included. Albumin, Peritoneal Fluid 0.5 g/dL 06/27/2025 2:46 PM EDT [facility] Peritoneal Fluid Peritoneal cavity structure / Unknown Non-blood Collection / Unknown 06/27/2025 9:16 AM EDT 06/27/2025 11:21 AM EDT Narrative [facility] - 06/27/2025 2:46 PM EDT REPORTING RESULTS Reference Values: No established reference interval. Results should be interpreted in comparison to the concentration in blood and in conjunction with the clinical context. This test was developed and its performance characteristics determined by [facility]. The U.S. Food and Drug Administration has not approved or cleared this test; however, FDA clearance or approval is not currently required for clinical use. The results are not intended to be used as the sole means for clinical diagnosis or patient management decisions. Chilo Loyola MD LAB BODY FLUIDS AND STOOLS ORDERABLES Final Result Performing Organization Address City/[facility] Co de Phone Number [facility] [address] [place] [address] * Morphology (06/27/2025 4:03 AM EDT) Only the most recent of2 resultswithin the time period is included. Pathologist [facility] RBC Morphology Slide Reviewed LAB HEMATOLOGY METHOD 06/27/2025 5:[address] [facility] Target Cells Present LAB HEMATOLOGY METHOD 06/27/2025 5:[address] [facility] Blood Venous blood specimen / Unknown Venipuncture / Unknown 06/27/2025 4:03 AM EDT 06/27/2025 4:40 AM EDT Chilo Loyola MD LAB BLOOD ORDERABLES Final Result Performing Organization Address [facility] de Phone Number [facility] [address] [place] [address] * (ABNORMAL) Cystatin C (06/27/2025 4:03 AM EDT) Only the most recent of2 resultswithin the time period is included. Pathologist [facility] Cystatin C 2.97(H) 0.61 - 0.95 mg/L 06/27/2025 11:21 AM EDT [facility] Blood Venous blood specimen / Unknown Venipuncture / Unknown 06/27/2025 4:03 AM EDT 06/27/2025 4:40 AM EDT Result [facility] Chilo Loyola MD LAB BLOOD ORDERABLES Final Result Performing Organization Address City/[facility] Co de Phone Number [facility] [address] [place] [address] * Protein, Random, Urine with Creatinine (06/26/2025 10:40 AM EDT) Protein, Urine 56 mg/dL 06/26/2025 11:[address] [facility] Creatinine, Urine 181 mg/dL 06/26/2025 11:[address] [facility] Protein/Creati nine Ratio 0.3 mg/mg Creat 06/26/2025 11:[address] [facility] Urine Urine specimen obtained by clean catch procedure / Unknown Non-blood Collection / Unknown 06/26/2025 10:40 AM EDT 06/26/2025 11:03 AM EDT Chilo Loyola MD LAB URINE ORDERABLES Final Result Performing Organization Address City/[facility]/ZIP Co de Phone Number [facility] [address] [place] [address] * (ABNORMAL) Osmolality (06/26/2025 3:47 AM EDT) Osmolality, Serum 307(H) 280 - 301 mOsm/Kg 06/26/2025 9:36 AM EDT [facility] Blood Venous blood specimen / Unknown Venipuncture / Unknown 06/26/2025 3:47 AM EDT 06/26/2025 4:09 AM EDT us Chilo Loyola MD LAB BLOOD ORDERABLES Final Result [facility] [address] [place] [address] * (ABNORMAL) Manual Differential (06/25/2025 3:00 PM EDT) Blasts % 0 % LAB HEMATOLOGY METHOD 06/25/2025 4:38 PM EDT [facility] Promyelocytes % 0 % LAB HEMATOLOGY METHOD 06/25/2025 4:38 PM EDT [facility] Myelocytes % 0 % LAB HEMATOLOGY METHOD 06/25/2025 4:38 PM EDT [facility] Metamyelocytes % 0 % LAB HEMATOLOGY METHOD 06/25/2025 4:38 PM EDT [facility] Neutrophils % 69 % LAB HEMATOLOGY METHOD 06/25/2025 4:38 PM EDT [facility] Lymphocytes % 15 % LAB HEMATOLOGY METHOD 06/25/2025 4:38 PM EDT [facility] Reactive Lymphocytes % 0 % LAB HEMATOLOGY METHOD 06/25/2025 4:38 PM EDT [facility] Monocytes % 11 % LAB HEMATOLOGY METHOD 06/25/2025 4:38 PM EDT [facility] Eosinophils % 1 % LAB HEMATOLOGY METHOD 06/25/2025 4:38 PM EDT [facility] Basophils % 4 % LAB HEMATOLOGY METHOD 06/25/2025 4:38 PM EDT [facility] Blasts Absolute LAB HEMATOLOGY METHOD 06/25/2025 4:38 PM EDT [facility] Promyelocytes Absolute LAB HEMATOLOGY METHOD 06/25/2025 4:38 PM EDT [facility] Myelocytes Absolute LAB HEMATOLOGY METHOD 06/25/2025 4:38 PM EDT [facility] Metamyelocytes Absolute LAB HEMATOLOGY METHOD 06/25/2025 4:38 PM EDT [facility] Neutrophils Absolute 1.61 1.60 - 6.10 10*3/uL LAB HEMATOLOGY METHOD 06/25/2025 4:38 PM EDT [facility] Lymphocytes Absolute 0.35(L) 1.20 - 3.90 10*3/uL LAB HEMATOLOGY METHOD 06/25/2025 4:38 PM EDT [facility] Reactive Lymphocytes Absolute LAB HEMATOLOGY METHOD 06/25/2025 4:38 PM EDT [facility] Monocytes Absolute 0.26(L) 0.30 - 0.90 10*3/uL LAB HEMATOLOGY METHOD 06/25/2025 4:38 PM EDT [facility] Eosinophils Absolute 0.02 0.00 - 0.50 10*3/uL LAB HEMATOLOGY METHOD 06/25/2025 4:38 PM EDT [facility] Basophils Absolute 0.09 0.00 - 0.10 10*3/uL LAB HEMATOLOGY METHOD 06/25/2025 4:38 PM EDT [facility] Blood Venous blood specimen / Unknown Venipuncture / Unknown 06/25/2025 3:00 PM EDT 06/25/2025 3:10 PM EDT us Raymundo Childers MD LAB BLOOD ORDERABLES Final Resul t [facility] [address] [place] [address] * ECG Adult (06/25/2025 2:48 PM EDT) Only the most recent of2 resultswithin the time period is included. EKG DIAGNOSIS CLASS Abnormal MUSE ECG Ventricular Rate 61 BPM MUSE ECG QRSD Interval 86 ms MUSE ECG QT Interval 448 ms MUSE ECG QTC Interval 450 ms MUSE ECG R [place] -25 degrees MUSE ECG T Wave [place] 25 degrees MUSE ECG Diagnosis Poor data quality, interpretation may be adversely affected MUSE ECG Diagnosis Likely Normal sinus rhythm MUSE ECG Diagnosis Low voltage QRS MUSE ECG Diagnosis Abnormal ECG MUSE ECG Diagnosis Recommend repeat ECG MUSE ECG Diagnosis Confirmed by lAex Sotelo ([id number]) on 06/26/2025 9:55:48 AM MUSE [...] 06/23/2025 5:29 PM EDT us Kandice Maldonado OCCUPATIONAL PHYSICIAN IMG US PROCEDURES Final Res ult * Bone Specific Alkaline Phosphatase (06/11/2025 9:24 AM EDT) Bone Specific Alkaline Phosphatase 31.6 ug/L 06/11/2025 10:45 AM EDT [facility] Comment: BSAP (Ostase) Reference Values, Female, age 18 years and up: Premenopausal: 4.5 to 16.9 ug/L Postmenopausal: 7.0 to 22.4 ug/L Blood Venous blood specimen / Unknown Venipuncture / Unknown 06/11/2025 9:24 AM EDT 06/11/2025 9:55 AM EDT us Ar Dominique MD LAB REF LAB BLOOD AND FLUID OR D Final Result [facility] [address] [place] [address] * Pain Management, Quantitative Urine Drug Testing (06/11/2025 9:24 AM EDT) [place] Alprazolam <20 <20 ng/mL 06/13 1:50 PM EDT [facility] [place] Midazolam <20 <20 ng/mL 2024 1:50 PM EDT [facility] [place] Triazolam <20 <20 ng/mL 2024 1:50 PM EDT [facility] Alprazolam <10 <10 ng/mL 06/13/2025 1:50 PM EDT [facility] Aminoclonazepam <20 <20 ng/mL 5 1:50 PM EDT [facility] Amphetamine <50 <50 ng/mL 06/13/2025 1:50 PM EDT [facility] Benzoylecgonine <50 <50 ng/mL 1:50 PM EDT [facility] Buprenorphine <10 <10 ng/mL 06/13/2025 1:50 PM EDT [facility] Buprenorphine Glucuronide <50 <50 ng/mL 06/13/2025 1:50 PM EDT [facility] Butalbital <50 <50 ng/mL 06/13/2025 1:50 PM EDT [facility] 9 Carboxy THC <10 <10 ng/mL 06/13/2025 1:50 PM EDT [facility] 9 Carboxy THC Glucuronide <25 <25 ng/mL 06/13/2025 1:50 PM EDT [facility] Clonazepam <10 <10 ng/mL 06/13/2025 1:50 PM EDT [facility] Codeine <50 <50 ng/mL 06/13/2025 1:50 PM EDT [facility] Codeine Glucuronide <50 <50 ng/mL 06/13 1:50 PM EDT [facility] Cyclobenzaprine <50 <50 ng/mL 1:50 PM EDT [facility] Desmethyl Tramadol <50 <50 ng/mL 2024 1:50 PM EDT [facility] Diazepam <10 <10 ng/mL 06/13/2025 1:50 PM EDT [facility] EDDP - Methadone Metabolite <50 <50 ng/mL 06/13/2025 1:50 PM EDT [facility] Fentanyl <1 <1 ng/mL 06/13/2025 1:50 PM EDT [facility] Hydrocodone <50 <50 ng/mL 06/13/2025 1:50 PM EDT [facility] Hydromorphone <50 <50 ng/mL 06/13/2025 1:50 PM EDT [facility] Hydromorphone Glucuronide <50 <50 ng/mL 06/13/2025 1:50 PM EDT [facility] Lorazepam <20 <20 ng/mL 06/13/2025 1:50 PM EDT [facility] Lorazepam Glucuronide <50 <50 ng/mL 06/13/2025 1:50 PM EDT [facility] MDA <50 <50 ng/mL 06/13/2025 1:50 PM EDT [facility] MDMA <50 <50 ng/mL 06/13/2025 1:50 PM EDT [facility] Meperidine <50 <50 ng/mL 06/13/2025 1:50 PM EDT [facility] Methadone <50 <50 ng/mL 06/13/2025 1:50 PM EDT [facility] Methamphetamine <50 <50 ng/mL 1:50 PM EDT [facility] Methylphenidate <50 <50 ng/mL 1:50 PM EDT [facility] 6 Monoacetyl morphine <10 <10 ng/mL 06/13/2025 1:50 PM EDT [facility] Morphine <50 <50 ng/mL 06/13/2025 1:50 PM EDT [facility] Morphine Glucuronide <50 <50 ng/mL 05/22 1:50 PM EDT [facility] Naloxone <50 <50 ng/mL 06/13/2025 1:50 PM EDT [facility] Naloxone Glucuronide <50 <50 ng/mL 05/22 1:50 PM EDT [facility] Norbuprenorphine <10 <10 ng/mL 06/13/20 1:50 PM EDT [facility] Norbuprenorphine Glucuronide <50 <50 ng/mL 06/13/2025 1:50 PM EDT [facility] Nordiazepam <20 <20 ng/mL 06/13/2025 1:50 PM EDT [facility] Norfentanyl <2 <2 ng/mL 06/13/2025 1:50 PM EDT [facility] Normeperidine <50 <50 ng/mL 06/13/2025 1:50 PM EDT [facility] PCP Quant, Ur <50 <50 ng/mL 06/13/2025 1:50 PM EDT [facility] Phenobarbital <50 <50 ng/mL 06/13/2025 1:50 PM EDT [facility] Oxazepam <20 <20 ng/mL 06/13/2025 1:50 PM EDT [facility] Oxazepam Glucuronide <50 <50 ng/mL 05/22 1:50 PM EDT [facility] Oxycodone <50 <50 ng/mL 06/13/2025 1:50 PM EDT [facility] Oxymorphone <50 <50 ng/mL 06/13/2025 1:50 PM EDT [facility] Oxymorphone Glucuronide <50 <50 ng/mL 06/13/2025 1:50 PM EDT [facility] Secobarbital <50 <50 ng/mL 06/13/2025 1:50 PM EDT [facility] Tramadol <50 <50 ng/mL 06/13/2025 1:50 PM EDT [facility] Temazepam <20 <20 ng/mL 06/13/2025 1:50 PM EDT [facility] Temazepam Glucuronide <50 <50 ng/mL 06/13/2025 1:50 PM EDT [facility] Urine Urine specimen obtained by clean catch procedure / Unknown Non-blood Collection / Unknown 06/11/2025 9:24 AM EDT 06/11/2025 9:57 AM EDT Narrative [facility] - 06/13/2025 1:50 PM EDT [...] laboratory. Test performed by LC-MS/MS at the [facility]. This test was developed and its performance characteristics determined by [facility]. It has not been cleared or approved by the FDA. The laboratory is regulated under CLIA as qualified to perform high-complexity testing. This test is used for clinical purposes. us Gerson Arora MD LAB URINE ORDERABLES Final Resul t [facility] [address] [place] [address] * C-Telopeptide (06/11/2025 9:24 AM EDT) C Telopeptide Beta Cross Linked Serum Result 1083 pg/mL 06/13/2025 1:13 AM EDT [facility] ([facility]) Blood Venous blood specimen / Unknown Venipuncture / Unknown 06/11/2025 9:24 AM EDT 06/11/2025 9:54 AM EDT Narrative [facility]) - 06/13/2025 1:13 AM EDT Premenopausal Females: 136-689 pg/mL Postmenopausal Females: 177-1015 pg/mL REFERENCE INTERVAL: C-Telopeptide, [id number], Serum Access complete set of age- and/or gender-specific reference intervals for this test in the [employer] Test Directory ([employer]). Performed By: Transfer To [address] [place] [address] Speech Assistant: Tank Orona MD, PhD CLIA Number: [id number] us Ar Dominique MD LAB BLOOD ORDERABLES Final Res ult Performing Organization Address City/[facility]/ZIP Co de Phone Number [facility]) [address] [place] [address] * Nicotine Cotinine Metabolite (06/11/2025 9:24 AM EDT) NICOTINE <5 <5 ng/mL 06/13/2025 6:2 3 PM EDT [facility] Cotinine <5 <5 ng/mL 06/13/2025 6:2 3 PM EDT [facility] Blood Venous blood specimen / Unknown Venipuncture / Unknown 06/11/2025 9:24 AM EDT 06/11/2025 9:55 AM EDT Narrative [facility] - 06/13/2025 6:23 PM EDT Testing performed by LC-MS/MS at the [facility]/Toxicology Laboratory. This test was developed and its performance characteristics determined by [facility]. This assay has not been cleared by the FDA. The laboratory is regulated under CLIA as qualified to perform high-complexity testing. This test is used for clinical purposes. us Gerson Arora MD LAB BLOOD ORDERABLES Final Resul t [facility] [address] [place] [address] * Osteocalcin by ECIA (06/11/2025 9:24 AM EDT) OSTEOCALCIN BY ECIA 28 8 - 36 ng/mL 06/13/2025 1:13 AM EDT [facility]) Blood Venous blood specimen / Unknown Venipuncture / Unknown 06/11/2025 9:24 AM EDT 06/11/2025 10:00 AM EDT Narrative [facility]) - 06/13/2025 1:13 AM EDT INTERPRETIVE INFORMATION: Osteocalcin by ECIA In patients with renal failure, the osteocalcin result may be directly elevated, due to impaired clearance, and/or indirectly elevated due to renal osteodystrophy. Access complete set of age- and/or gender-specific reference intervals for this test in the [facility] Test Directory ([employer]). Performed By: [facility] [address] [place] [address] Speech Assistant: Tank Orona MD, PhD CLIA Number: [id number] us Ar Dominique MD LAB BLOOD ORDERABLES Final Res ult [facility] KE[facility]) [address] [place] [address] * Alcohol Urine (06/11/2025 9:24 AM EDT) Alcohol Urine Negative Negative 06/11/2025 2:20 PM EDT [facility] Urine Urine specimen obtained by clean catch procedure / Unknown Non-blood Collection / Unknown 06/11/2025 9:24 AM EDT 06/11/2025 9:57 AM EDT Narrative [facility] - 06/11/2025 2:20 PM EDT The correlation between urine and serum ethanol concentration is highly variable. Test performed by Gas Chromatography at the [facility]. This test was developed and its performance characteristics determined by [facility]. It has not been cleared or approved by the FDA.The laboratory is regulated under CLIA as qualified to perform high-complexity testing. This test is used for clinical purposes only. us Gerson Arora MD LAB URINE ORDERABLES Final Resul t [facility] [address] [place] [address] * (ABNORMAL) Comprehensive Urine Drug Screening, Qualitative Assay, >= 27 Drug Classes (59:24 AM EDT) Acetaminophen Negative Negative 06/11/2025 4:37 PM EDT [facility] Alprazolam Negative Negative 06/11/2025 4:37 PM EDT [facility] Amantadine Negative Negative 06/11/2025 4:37 PM EDT [facility] Amitriptyline Negative Negative 06/11/2025 4:37 PM EDT [facility] Amphetamine Negative Negative 06/11/2025 4:37 PM EDT [facility] Atenolol Negative Negative 06/11/2025 4:37 PM EDT [facility] Benzoylecgonine Negative Negative 4:37 PM EDT [facility] Bisoprolol Negative Negative 06/11/2025 4:37 PM EDT [facility] Bupropion Negative Negative 06/11/2025 4:37 PM EDT [facility] Butalbital Negative Negative 06/11/2025 4:37 PM EDT [facility] Carbamazepine Negative Negative 06/11/2025 4:37 PM EDT [facility] Carisoprodol Negative Negative 06/11/2025 4:37 PM EDT [facility] Chlorpheniramine Negative Negative 06/11/20 4:37 PM EDT [facility] Citalopram Negative Negative 06/11/2025 4:37 PM EDT [facility] Clindamycin Negative Negative 06/11/2025 4:37 PM EDT [facility] Clonidine Negative Negative 06/11/2025 4:37 PM EDT [facility] Clopidogrel / Ticlopidine Negative Negative 06/11/2025 4:37 PM EDT [facility] Cocaethylene Negative Negative 06/11/2025 4:37 PM EDT [facility] Cocaine Negative Negative 06/11/2025 4:37 PM EDT [facility] Codeine Negative Negative 06/11/2025 4:37 PM EDT [facility] Cyclobenzaprine Negative Negative 4:37 PM EDT [facility] Desvenlafaxine Negative Negative 06/11/2025 4:37 PM EDT [facility] Dextromethorphan Negative Negative 06/11/20 4:37 PM EDT [facility] Diazepam Negative Negative 06/11/2025 4:37 PM EDT [facility] Diltiazem Negative Negative 06/11/2025 4:37 PM EDT [facility] Diphenhydramine Negative Negative 4:37 PM EDT [facility] Doxepine Negative Negative 06/11/2025 4:37 PM EDT [facility] Doxylamine Negative Negative 06/11/2025 4:37 PM EDT [facility] EDDP-Methadone metabolite Negative Negative 06/11/2025 4:37 PM EDT [facility] Fentanyl Negative Negative 06/11/2025 4:37 PM EDT [facility] Fluconazole Negative Negative 06/11/2025 4:37 PM EDT [facility] Fluoxetine Negative Negative 06/11/2025 4:37 PM EDT [facility] Guaifenesin Negative Negative 06/11/2025 4:37 PM EDT [facility] Haloperidol Negative Negative 06/11/2025 4:37 PM EDT [facility] Heroin/6-SANA Negative Negative 06/11/2025 4:37 PM EDT [facility] Hydrocodone Negative Negative 06/11/2025 4:37 PM EDT [facility] Hydroxyzine / Cetirizine metabolite Negative Negative 06/11/2025 4:37 PM EDT [facility] Ibuprofen Negative Negative 06/11/2025 4:37 PM EDT [facility] Imipramine Negative Negative 06/11/2025 4:37 PM EDT [facility] Ketamine Negative Negative 06/11/2025 4:37 PM EDT [facility] Labetolol Negative Negative 06/11/2025 4:37 PM EDT [facility] Lamotrigine Negative Negative 06/11/2025 4:37 PM EDT [facility] Levetiracetam Negative Negative 06/11/2025 4:37 PM EDT [facility] Lidocaine Positive(A) Negative 06/11/2025 4:37 PM EDT [facility] MDA Negative Negative 06/11/2025 4:37 PM EDT [facility] MDMA Negative Negative 06/11/2025 4:37 PM EDT [facility] Memantine Negative Negative 06/11/2025 4:37 PM EDT [facility] Meperidine Negative Negative 06/11/2025 4:37 PM EDT [facility] Meprobamate Negative Negative 06/11/2025 4:37 PM EDT [facility] Metaxalone Negative Negative 06/11/2025 4:37 PM EDT [facility] Methamphetamine Negative Negative 4:37 PM EDT [facility] Methocarbamol Negative Negative 06/11/2025 4:37 PM EDT [facility] Methylecgonine Negative Negative 06/11/2025 4:37 PM EDT [facility] Metoclopramide Negative Negative 06/11/2025 4:37 PM EDT [facility] Metoprolol Negative Negative 06/11/2025 4:37 PM EDT [facility] Metronidazole Negative Negative 06/11/2025 4:37 PM EDT [facility] Midazolam Negative Negative 06/11/2025 4:37 PM EDT [facility] Midazolam Metabolite Negative Negative 06/11/2025 4:37 PM EDT [facility] Mirtazapine Negative Negative 06/11/2025 4:37 PM EDT [facility] Misc Test Result Negative Negative 06/11/20 4:37 PM EDT [facility] Naproxen Negative Negative 06/11/2025 4:37 PM EDT [facility] Nefazodone Negative Negative 06/11/2025 4:37 PM EDT [facility] Norfentanyl Negative Negative 06/11/2025 4:37 PM EDT [facility] Nortriptyline Negative Negative 06/11/2025 4:37 PM EDT [facility] Ordanstron Negative Negative 06/11/2025 4:37 PM EDT [facility] Oxcarbazepine Negative Negative 06/11/2025 4:37 PM EDT [facility] Oxycodone Negative Negative 06/11/2025 4:37 PM EDT [facility] Paroxethine Negative Negative 06/11/2025 4:37 PM EDT [facility] Phenobarbital Negative Negative 06/11/2025 4:37 PM EDT [facility] Phentermine Negative Negative 06/11/2025 4:37 PM EDT [facility] Phenytoin Negative Negative 06/11/2025 4:37 PM EDT [facility] Primidone Negative Negative 06/11/2025 4:37 PM EDT [facility] Promethazine Negative Negative 06/11/2025 4:37 PM EDT [facility] Propofol Negative Negative 06/11/2025 4:37 PM EDT [facility] Propranolol Negative Negative 06/11/2025 4:37 PM EDT [facility] Quetiapine Negative Negative 06/11/2025 4:37 PM EDT [facility] Quinine Negative Negative 06/11/2025 4:37 PM EDT [facility] Rantidine Negative Negative 06/11/2025 4:37 PM EDT [facility] Sertraline Negative Negative 06/11/2025 4:37 PM EDT [facility] Spironolactone Negative Negative 06/11/2025 4:37 PM EDT [facility] Tizanidine Negative Negative 06/11/2025 4:37 PM EDT [facility] Topiramate Negative Negative 06/11/2025 4:37 PM EDT [facility] Tramadol Negative Negative 06/11/2025 4:37 PM EDT [facility] Trazadone/ Trazadone metabolite Negative Negative 06/11/2025 4:37 PM EDT [facility] Trimethoprim Negative Negative 06/11/2025 4:37 PM EDT [facility] Valproic Acid Negative Negative 06/11/2025 4:37 PM EDT [facility] Venlafaxine Negative Negative 06/11/2025 4:37 PM EDT [facility] Verapamil Negative Negative 06/11/2025 4:37 PM EDT [facility] Zolpidem Negative Negative 06/11/2025 4:37 PM EDT [facility] Xylazine Negative Negative 06/11/2025 4:37 PM EDT [facility] Urine Urine specimen obtained by clean catch procedure / Unknown Non-blood Collection / Unknown 06/11/2025 9:24 AM EDT 06/11/2025 9:56 AM EDT [facility] Gerson Arora MD LAB URINE ORDERABLES Final Resul t [facility] [address] [place] [address] * (ABNORMAL) CBC w/o differential (06/11/2025 9:24 AM EDT) Only the most recent of2 resultswithin the time period is included. WBC Count 4.49 3.70 - 10.30 10*3/uL LAB HEMATOLOGY METHOD 06/11/2025 10:12 AM EDT [facility] RBC Count 3.17(L) 3.90 - 5.20 10*6/uL LAB HEMATOLOGY METHOD 06/11/2025 10:12 AM EDT [facility] HGB 10.0(L) 11.2 - 15.7 g/dL LAB HEMATOLOGY METHOD 06/11/2025 10:12 AM EDT [facility] HCT 31.0(L) 34.0 - 45.0 % LAB HEMATOLOGY METHOD 06/11/2025 10:12 AM EDT [facility] Platelet Count 68(L) 155 - 369 10*3/uL LAB HEMATOLOGY METHOD 06/11/2025 10:12 AM EDT [facility] MCV 98 79 - 98 fL LAB HEMATOLOGY METHOD 06/11/2025 10:12 AM EDT [facility] MCH 31.5 26.0 - 32.0 pg LAB HEMATOLOGY METHOD 06/11/2025 10:12 AM EDT [facility] MCHC 32.3 30.7 - 35.5 g/dL LAB HEMATOLOGY METHOD 06/11/2025 10:12 AM EDT [facility] RDW 17.3(H) 11.5 - 14.5 % LAB HEMATOLOGY METHOD 06/11/2025 10:12 AM EDT [facility] MPV 10.1 8.8 - 12.5 fL LAB HEMATOLOGY METHOD 06/11/2025 10:12 AM EDT [facility] nRBC 0.0 <=0.0 per 100 WBCs LAB HEMATOLOGY METHOD 06/11/2025 10:12 AM EDT [facility] Blood Venous blood specimen / Unknown Venipuncture / Unknown 06/11/2025 9:24 AM EDT 06/11/2025 9:56 AM EDT us Gerson Arora MD LAB BLOOD ORDERABLES Final Resul t Performing Organization Address City/[facility]/ZIP Co de Phone Number [facility] [address] [place] [address] * (ABNORMAL) Iron, Plasma (06/05/2025 3:52 PM EDT) Iron, Plasma 165(H) 30 - 160 ug/dL 06/05/2025 6:41 PM EDT [facility] Blood Venous blood specimen / Unknown Venipuncture / Unknown 06/05/2025 3:52 PM EDT 06/05/2025 3:52 PM EDT us Alvarez Zimmer MD LAB BLOOD ORDERABLES Final Res ult [facility] [address] [place] [address] * (ABNORMAL) Ferritin, Serum (06/05/2025 3:52 PM EDT) Ferritin, Serum 280(H) 13 - 150 ng/mL 06/05/2025 6:53 PM EDT [facility] Blood Venous blood specimen / Unknown Venipuncture / Unknown 06/05/2025 3:52 PM EDT 06/05/2025 3:52 PM EDT us Alvarez Zimmer MD LAB BLOOD ORDERABLES Final Res ult Performing Organization Address [facility] [place] [place] [address] * (ABNORMAL) Conjugated Bilirubin, Plasma (06/05/2025 3:52 PM EDT) Direct Bilirubin, Plasma 1.5(H) <=0.3 mg/dL 06/05/2025 6:41 PM EDT [facility] Blood Venous blood specimen / Unknown Venipuncture / Unknown 06/05/2025 3:52 PM EDT 06/05/2025 3:52 PM EDT us Alvarez Zimmer MD LAB BLOOD ORDERABLES Final Res ult Performing Organization Address [facility] [place] [place] [address] * Urine Subramanian Panel (05/31/2025 6:43 PM EDT) Only the most recent of2 resultswithin the time period is included. Extra Reflex urine culture not indicated 05/31/2025 9:01 PM EDT [facility] Urine Urine specimen obtained by clean catch procedure / Unknown Non-blood Collection / Unknown 05/31/2025 6:43 PM EDT 05/31/2025 7:14 PM EDT Irina Campos MD LAB URINE ORDERABLES Final Re sult Performing Organization Address City/[facility] Co de Phone Number [facility] [address] [place] [address] * Urinalysis Microscopic Examination (05/31/2025 6:43 PM EDT) Only the most recent of2 resultswithin the time period is included. Urine Urine specimen obtained by clean catch procedure / Unknown Non-blood Collection / Unknown 05/31/2025 6:43 PM EDT 05/31/2025 6:46 PM EDT us Irina Campos MD LAB URINE ORDERABLES Final Re sult [facility] [address] [place] [id number] * (ABNORMAL) Urinalysis with reflex microscopic (Culture NOT Included) (05/31/2025 6:43 PM EDT) Only the most recent of2 resultswithin the time period is included. Color, Urine Dark Yellow LAB URINALYSIS - AUTOMATED METHOD 05/31/2025 7:27 PM EDT [facility] Clarity, Urine Clear LAB URINALYSIS - AUTOMATED METHOD 05/31/2025 7:27 PM EDT [facility] Spec [place], Urine 1.029 1.005 - 1.030 LAB URINALYSIS [...] ORDERABLES Final Re sult Performing Organization Address City/[facility]/ZIP Co de Phone Number [facility] [address] [place] [address] * Lipase (05/31/2025 4:01 PM EDT) Lipase, Plasma 62 19 - 63 U/L 05/31/2025 4:26 PM EDT [facility] Blood Venous blood specimen / Unknown Venipuncture / Unknown 05/31/2025 4:01 PM EDT 05/31/2025 4:06 PM EDT us Torrie Turner MD LAB BLOOD ORDERABLES Final Resu lt Performing Organization Address City/[facility]/ZIP Co de Phone Number [facility] [address] [place] [address] * (ABNORMAL) Blood gas panel, venous (05/31/2025 [...] ORDERABLES Final Resu lt Performing Organization Address [facility] Co de Phone Number [facility] [address] [place] [address] * (ABNORMAL) Insulin, random (05/30/2025 9:59 AM EDT) Insulin 32.7(H) 3.0 - 16.0 uU/mL 05/30/2025 12:00 PM EDT [facility] Blood Venous blood specimen / Unknown Venipuncture / Unknown 05/30/2025 9:59 AM EDT 05/30/2025 10:16 AM EDT us Enmanuel Wetzel MD LAB BLOOD ORDERABLES Final Resu lt Performing Organization Address [facility] Co de Phone Number [facility] [address] [place] [address] * (ABNORMAL) Hemoglobin A1c (05/23/2025 9:27 AM EDT) Hemoglobin A1c 7.3(H) <5.7 % 05/23/2025 11:03 AM EDT [facility] Blood Venous blood specimen / Unknown Venipuncture / Unknown 05/23/2025 9:27 AM EDT 05/23/2025 9:45 AM EDT Narrative [facility] - 05/23/2025 11:03 AM EDT HA1C Interpretive Data: Diagnosis of Diabetes: Diabetic > or = 6.5% Pre-diabetic 5.7 to 6.4% Non-diabetic < or = 5.6% Glycemic Targets for Type I and Type II Diabetics: Non- Adults <7.0% Adults <6.0% Children and Adolescents <7.5% Source: [place] Diabetes Association. Standards of medical care in diabetes,2017. Diabetes Care.2017:40 (suppl 1):S1-S135. us Enmanuel Wetzel MD LAB BLOOD ORDERABLES Final Resu lt [facility] [address] [place] [address] * Dexa Bone Density (11/07/2024 9:09 AM [...] forearm, right forearm was performed using a Neurotrack Horizon A Dual-energy X-ray Absorptiometry (DXA) scanner [...] left forearm, right forearm wasperformed using a Neurotrack Horizon A Dual-energy X-ray Absorptiometry (DXA)scanner (software [...] Antibody/Antigen Screen (10/22/2024 11:44 AM EST) Pathologist [facility] HIV 1 & 2 Antibody/Antigen Screen Non Reactive Non Reactive 10/22/2024 1:15 PM EST [facility] Comment:Screening for HIV 1 & 2 antibodies, and P24 antigen is NONREACTIVE. No confirmatory testing is required. Blood Venous blood specimen / Unknown Venipuncture / Unknown 10/22/2024 11:44 AM EST 10/22/2024 12:30 PM EST Yeni Lebron APRN, DNP LAB BLOOD ORDERABLES Final Result [facility] [address] [place] [address] * Hepatitis C Antibody (10/22/2024 11:44 AM EST) Pathologist [facility] Hepatitis C Antibody Negative Negative 10/22/2024 1:00 PM EST [facility] Blood Venous blood specimen / Unknown Venipuncture / Unknown 10/22/2024 11:44 AM EST 10/22/2024 12:17 PM EST Yeni Lebron APRN, DNP LAB BLOOD ORDERABLES Final Result [facility] [address] [place] [address] * Colonoscopy External Result (01/14/2023) Anatomical Region Laterality Modality Endoscopy Narrative 01/14/2023 Ordered by an unspecified provider. External Provider GI PROCEDURE ORDERABLES Final Result * Cytology (04/12/2003 12:00 AM EDT) 04/12/2003 04/16/2003 Narrative [facility] - 04/26/2003 7:51 AM EDT PSYCHIATRIC MR #: [id number] [facility] [address] [place] [address] 1960 (Age: 42) FW Collect Date: 04/12/2003 00:00 Receipt Date: 04/16/2003 00:00 Page 1 DEPARTMENT OF PATHOLOGY AND LABORATORY MEDICINE CYTOPATHOLOGY REPORT Email: [email or web address] ATTENDING MD/Practitioner: Rosaline Cooper MD Service: [facility] Location: OUTS Reported: 04/26/2003 07:51 Collected: 04/12/2003 [...] results is suggested (please call Microbiology at [phone] for results). CLINICAL INFORMATION: Menstrual History: Cyclic Date of Last Menstrual Period: 11/23 Contraceptive History: control pills Other Clinical Conditions: Per computer, patient has a history of previous abnormal pap SPECIMEN DESCRIPTION: A: THIN PREP (CERVICAL/VAGINAL) THIN PREP PROCESS CELLULAR ENHANCEMENT ICD: 795.00 ABNORMAL GLANDULAR PAPANICOLAOU SMEAR OF CERVIX F: A; THIN SCRN [id number], THIN SCRN [id number] <CR>, THIN DX [id number] SNOMED CODES: A; [id number] In cases where a pathologist has signed [...] file Group ID:Not on file Type:Medicaid Address: [place] [id number] [place] [id number] [place] Advance Directives Documents on File Type Date Recorded Patient Flame Brazing Machine Operator Expl anation Advance Directives and Livin g [...] Second Alternate Health Care Agent Care Teams Shovel Engineer Relationship Specialty Start Date End Date Alvarez Zimmer MD [address] [place] [address] PCP - General Family Medicine 12/07/24 Lea Fernando [address] [place] [address] Mercury Washer Endocrinology 08/29/24 Rachel Ray APRN [address] [place] [address] Nurse Practitioner Gastroenterology 09/24/24 Tamera Isabel, MG VALUE-BASED TRANSFORMATION PROGRAM Licensed Practical Nurse 05/29/25
--- OUTSIDE RECORDS SUMMARY | 2025-08-17 15:23 | XMS_ITS | Encounter Summary ---
Author Organization [facility] Address [address] [place] [address] Care Team Providers Care Conference Services Manager Name Role Phone Lea Fernando Unavailable [phone] Rachel Ray SLACKMAN Unavailable [phone] Alvarez Zimmer MD Primary Care Provider [phone] Tamera Isabel FINANCE ASSISTANT Unavailable UnavailAlina Bedolla RN Unavailable Unavailab Monique Che FINANCE ASSISTANT Unavailable Unavailable Encounter Details Date Type Department Care Team (Late st Contact Info) Description 06/14/2025 Telephone [facility] Medicine [address] [place] [address] Alvarez Zimmer MD [address] [place] [address] Social History Tobacco Use Types [...] o r organizations such as congregation groups, [employer], [employer] or athletic groups, or school groups? Patient [...] week 05/29/2025 How often do you attend [facility] ch or hoahaoism services? Never 05/29/2025 Do you belong to any clubs o r organizations such as congregation groups, [employer], [employer] or athletic groups, or school groups? No [...] one occasion? Never 06/25/2025 [facility] [place] of Occupat ional Health - Occupational Stress [...] drink first t kennedy in the morning (EYE-FRONT DESK COORDINATOR) to steady your nerves or to get rid of a hangover? 0 06/25/2025 CAGE Questionnaire Score 0 025 Utilities Answer Date Recorded In the past 12 months has th [employer], gas, oil, or water company threatened to [...] EDT Felecia Khanna 2. Non-Specific Active Suici ilz Thoughts (Past 1 Month) No 07/08/2025 8:00 PM EDT Felecia Khanna 6. Suicidal Behavior (Lifetime) No 8:00 PM EDT Felecia Khanna documented as of this encounter Miscellaneous Notes * Telephone Encounter - Gissel Marino - 06/14/2025 1:11 PM EDT Called and informed pt that referral is in the computer and we will try to get all sorted out and set up in [place]. Pt voiced understanding. * Telephone Encounter - [...] is now staying with her sister in [place] for this assistance. Patient will be staying with her sister until something is set up with palliative care. Patient wants to be back on the transplant list. Please call patient to advise/discuss. Best contact number: [phone] Optimal time of day to reach caller: [...] EDT Clinical Support [facility] Transplant [place] [address] [facility] [address] [place] [address] 08/20/2025 10:30 AM EDT Social Work [facility] [place] [address] [facility] [place] [address] Deysi Ortega [place], [place] [id number] 08/20/2025 11:00 AM EDT Office Visit [facility] Trans[facility] [place] [address] [facility] [address] [place] [address] Jude Duque MD [address] [facility] [address] [place] [address] 08/22/2025 11:15 AM EDT Appointment [facility] [address] [place] [address] 08/22/2025 12:15 PM EDT Appointment [facility] [address] [place] [address] 08/26/2025 1:00 PM EDT Office Visit [facility] Endocrinology [address] [place] [address] Miranda Hobson P, SLACKMAN [address] [place] [address] 08/29/2025 10:00 AM EDT Appointment [facility] [address] [place] [address] 08/29/2025 11:00 AM EDT Appointment [facility] [address] [place] [address] 09/05/2025 10:00 AM EDT Appointment [facility] [address] [place] [address] 09/05/2025 11:00 AM EDT Appointment [facility] [address] [place] [address] documented as of this encounter Visit Diagnoses [...] documented as of this encounter Care Teams Conference Services Manager Relationship Specialty Start Date End Date Alvarez Zimmer MD [address] [place] [address] PCP - General Family Medicine 12/07/24 Lea Fernando [address] [facility] [address] [place] [address] Employee Training Specialist Endocrinology 08/29/24 Rachel Ray, SLACKMAN [address] [facility] [address] [place] [address] Nurse Practitioner Gastroenterology 09/24/24 Tamera Isabel LPN VALUE-BASED TRANSFORMATION PROGRAM Licensed Practical Nurse 05/29/25 Alina Lovett, RN CH-VASCULAR & INTERVENTIONAL RADIOLOGY Registered Nurse 06/26/25 06/26/25 Monique Tapia LPN VALUE-[place] [address] TCM Nurse 07/10/25 08/09/25 documented as of this encounter
--- OUTSIDE RECORDS SUMMARY | 2025-08-17 15:23 | XMS_ITS | Encounter Summary ---
Author Organization [employer] ([place], [place], [place], [place]) Address [address] [place] [address] Care Team Providers Care Quality Control Inspector Heading Name Role Phone Taina Lyles ADRI Primary Care Provider [phone] Encounter Details Date Type Department Care Team (Late st Contact Info) Description 07/02/2021 Transcribed Document [facility] Family Medicine [address] [place] [address] ProviderWilliam MD [address], [place] [address] Social History Tobacco Use Types Packs/Day Years [...] - 07/02/2021 12:33 EDT Electronically signed by [facility] Conversion Environmental Remediation Specialist Cerner at 03/07/2023 9:50 AM CDT documented in this encounter Plan of Treatment Not on file documented as of this encounter Visit Diagnoses Not on filedocumented in this encounter Care Teams Quality Control Inspector Heading Relationship Specialty Start Date End Date Taina Lyles, PAINT POURER [address] [place] [address] PCP - General Nurse Practitioner 06/15/23 documented as of this encounter
--- OUTSIDE RECORDS SUMMARY | 2025-08-17 15:23 | XMS_ITS | Clinical Summary ---
Author Organization [employer] ([place], [place], [place], [place]) Address [address] [place] [address] Care Team Providers Care Dental Insurance Biller Name Role Phone Wilfredolayla Taina Burt APRN Primary Care Provider Allergies No known active allergies Medications * [...] Date Beau rded Speak language other than Lebanese at home Not on file 12/01/2023 Want [...] Completed 10/30/2019, Medical Devices Implanted Type Area Engineering Administrator Device Identifier Shelf Expiration Date Model / Serial / Lot Kt Lead Tined 1201 - [id number] Implanted:Qty: 1 on 07/01/2023 by Rory Villarreal MD at [facility] IMPLANTS N/A: Sacrum AXONICS 1201 / [id number] / Neurostimulator Rechrgble R20 5101 - [id number] Implanted:Qty: 1 on 07/01/2023 by Rory Villarreal MD at [facility] IMPLANTS N/A: Sacrum AXONICS 5101 / [id number] 5 / Procedures Procedure Name Priority Date/Time [...] 4:24 AM EDT 07/02/2021 8:24 AM EDT [facility] Historical Provider PATHOLOGY/CYTOLOGY ORDE RABLES Final Result [facility] [address] [place] [id number] [phone] from Last 3 Months or Most Recently Relevant to Health Maintenance Insurance HUMANA MEDICARE PPO Care Teams Dental Insurance Biller Relationship Specialty Start Date End Date Taina Lyles APRN [address] [place] [address] PCP - General Nurse Practitioner 06/15/23
--- OUTSIDE RECORDS SUMMARY | 2025-08-17 15:23 | XMS_ITS | Referral Summary ---
Author Organization [employer] ([place], [place], [place], [place]) Address [address] [place] [address] Care Team Providers Care Backend Tester Name Role Phone Trupti Taina Burt APRN Primary Care Provider [phone] Allergies No known active allergies Medications * [...] Date Beau rded Speak language other than Gibraltarian at home Not on file 12/01/2023 Want [...] on file Medical Devices Implanted Type Area Flight Engineer Helicopter Device Identifier Shelf Expiration Date Model / Serial / Lot Kt Lead Tined 1201 - [id number] Implanted:Qty: 1 on 07/01/2023 by Rory Villarreal MD at [facility] IMPLANTS N/A: Sacrum AXONICS 1201 / [id number] 5 / Neurostimulator Rechrgble R20 5101 - [id number] Implanted:Qty: 1 on 07/01/2023 by Rory Villarreal MD at [facility] IMPLANTS N/A: Sacrum AXONICS 5101 / [id number] 5 / Procedures Procedure Name Priority Date/Time [...] EDT 07/02/2021 8:24 AM EDT [facility] Historical Provider PATHOLOGY/CYTOLOGY ORDE LOAN Final Result Performing Organization Address City/State/[facility] Co de Phone Number [facility] [address] [phone] from Last 3 Months or Most Recently Relevant to Health Maintenance Insurance [facility] MEDICARE PPO Care Teams Backend Tester Relationship Specialty Start Date End Date Taina Lyles, CHILDREN'S AUTHOR [address] [place] [address] PCP - General Nurse Practitioner 06/15/23
--- OUTSIDE RECORDS SUMMARY | 2025-08-17 15:23 | XMS_ITS | Encounter Summary ---
Author Organization [facility] Address [address] [place] [address] Care Team Providers Care Room Service Associate Name Role Phone Lea Fernando Unavailable [phone] Rachel Ray ODD JOBS DAY WORKER Unavailable [phone] Alvarez Zimmer MD Primary Care Provider [phone] Tamera Isabel SENIOR MANUFACTURING ENGINEER Unavailable UnavailAlina Bedolla RN Unavailable Unavailab Monique Che SENIOR MANUFACTURING ENGINEER Unavailable Unavailable Encounter Details Date Type Department Care Team (Late st Contact Info) Description 06/17/2025 Telephone [facility] Endocrinology [address] [place] [address] Deysi Antonio MD [address] [facility] [address] [place] [address] Social History Tobacco Use Types [...] o r organizations such as presybeterian groups, Vivog[employer], [employer] Hers or athletic groups, or school groups? Patient [...] r organizations such as presybeterian groups, unions, [employer] or athletic groups, or school groups? No [...] more drinks on one occasion? Never 06/25/2025 [facility] [place] of Occupat ional Health - Occupational Stress [...] drink first t kennedy in the morning (EYE-SEO ANALYST) to steady your nerves or to get rid of a hangover? 0 06/25/2025 CAGE Questionnaire Score 0 025 Utilities Answer Date Recorded In the past 12 months has th [employer], gas, oil, or water company threatened to [...] taking 52 units of Lantus daily, and Rwkoazw11 units for regular meals, and 12 units [...] levels, especially at night? Best contact number: [phone] Optimal time of day to reach caller: ANYTIME Additional comments/information from caller: None Note: Please do not reply to this message. Follow-up communication and further actions as a result of this message need to be communicated with the patient directly, if the patient is not active onMyChart. If the patient is active on MyChart, they will receive notification of the communication/outcome via [employer]. documented in this encounter Plan of Treatment Upcoming Encounters Date Type Department Care Team (Late st Contact Info) Description 08/20/2025 9:30 AM EDT Clinical Support [facility] [place] [address] [place] [address] 08/20/2025 10:30 AM EDT Social Work [facility] [place] [address] [place] [address] [place] [address] 08/20/2025 11:00 AM EDT Office Visit [facility] [place] [address] [place] [address] Jude Duque MD [address] [place] [address] 08/22/2025 11:15 AM EDT Appointment [facility] [address] [place] [address] 08/22/2025 12:15 PM EDT Appointment [facility] [address] [place] [address] 08/26/2025 1:00 PM EDT Office Visit [facility] Endocrinology [address] [place] [address] Miranda Hobson, ODD JOBS DAY WORKER [address] [facility] [address] [place] [address] 08/29/2025 10:00 AM EDT Appointment [facility] [address] [place] [address] 08/29/2025 11:00 AM EDT Appointment [facility] [address] [place] [address] 09/05/2025 10:00 AM EDT Appointment [facility] [address] [place] [address] 09/05/2025 11:00 AM EDT Appointment [facility] [address] [place] [address] documented as of this encounter Visit Diagnoses [...] documented as of this encounter Care Teams Room Service Associate Relationship Specialty Start Date End Date Alvarez Zimmer MD [address] [place] [address] PCP - General Family Medicine 12/07/24 Lea Fernando [address] [place] [address] Insurance Agency Owner Endocrinology 08/29/24 Rachel Ray, ODD JOBS DAY WORKER [address] [place] [address] Nurse Practitioner Gastroenterology 09/24/24 Tamera Isabel LPN VALUE-BASED TRANSFORMATION PROGRAM Licensed Practical Nurse 05/29/25 Alina Lovett, RN CH-VASCULAR & INTERVENTIONAL RADIOLOGY Registered Nurse 06/26/25 06/26/25 Monique Tapia LPN VALUE-BASED [place] [address] TCM Nurse 07/10/25 08/09/25 documented as of this encounter
--- OUTSIDE RECORDS SUMMARY | 2025-08-17 15:23 | XMS_ITS | Encounter Summary ---
Author Organization [employer] ([place], [place], [place], [place]) Address [address] [place] [address] Care Team Providers Care Manager Trust Name Role Phone Taina Lyles ADRI Primary Care Provider [phone] Encounter Details Date Type Department Care Team (Late st Contact Info) Description 07/02/2021 Transcribed Document [facility] Family Medicine [address] [place] [address] ProviderWilliam MD [address] [place], [place] [address] Social History Tobacco Use Types Packs/Day Years [...] Janice Cosme RN - 07/02/2021 2:30 EDT documented in this encounter Plan of Treatment Not on file documented as of this encounter Visit Diagnoses Not on filedocumented in this encounter Care Teams Manager Trust Relationship Specialty Start Date End Date Taina Lyles, MACHINE OPERATOR REPLANTER [address] [place] [address] PCP - General Nurse Practitioner 06/15/23 documented as of this encounter
--- OUTSIDE RECORDS SUMMARY | 2025-08-17 15:23 | XMS_ITS | Encounter Summary ---
Author Organization [employer] ([place], [place], [place], [place]) Address [address] [place] [address] Care Team Providers Care Spreading Machine Operator Name Role Phone Taina Lyles APRN Primary Care Provider [phone] Reason for Visit * Reason Comments New Med Request Encounter Details Date Type Department Care Team (Late st Contact Info) Description 12/10/2024 [facility] Primary Care - [address] [place] [address] Anali Benavidez, DIAMOND MOUNTER [address] [address] Social History Tobacco Use Types [...] Date Beau rded Speak language other than Colombian at home Not on file 12/01/2023 Want [...] on filedocumented in this encounter Care Teams Spreading Machine Operator Relationship Specialty Start Date End Date Taina Lyles, DIAMOND MOUNTER [address] [place] [address] PCP - General Nurse Practitioner 06/15/23 documented as of this encounter
--- OUTSIDE RECORDS SUMMARY | 2025-08-17 15:24 | XMS_ITS | Encounter Summary ---
Author Organization [employer] ([place], [place], [place], [place]) Address [address] [place] [address] Care Team Providers Care Electronics Production Supervisor Name Role Phone Taina Lyles APRN Primary Care Provider Encounter Details Date Type Department Care Team (Late st Contact Info) Description 07/02/2021 Transcribed Document [facility] [place] [address] [place] [address] ProviderWilliam MD [address] [place] [address] Social History Tobacco Use Types Packs/Day Years [...] 10:49 AM CDT Electronically signed by Luigi [facility] Conversion Dining Room Cashier Cerner at 03/07/2023 9:52 AM CDT documented in this encounter Plan of Treatment Not on file documented as of this encounter Visit Diagnoses Not on filedocumented in this encounter Care Teams Electronics Production Supervisor Relationship Specialty Start Date End Date Taina Lyles APRN [address] [facility] [address] PCP - General Nurse Practitioner 06/15/23 documented as of this encounter
--- OUTSIDE RECORDS SUMMARY | 2025-08-17 15:24 | XMS_ITS | Encounter Summary ---
Author Organization [employer] ([place], [place], [place], [place]) Address [address] [place] [address] Care Team Providers Care Manager Room Name Role Phone Taina Lyles APRN Primary Care Provider [phone] Encounter Details Date Type Department Care Team (Late st Contact Info) Description 01/23/2019 Transcribed Document [facility] [place] Family [place] [facility] [place] [address] ProviderWilliam MD [address] [place] [address] Social History Tobacco Use Types Packs/Day Years Used Date Smoking Tobacco: Never Assessed Comments Unknown Sex and Gender Information Value Date Recorded Sex Assigned at Not on file Legal Sex Female 12:21 PM CDT Gender Identity Not on file Sexual Orientation Not on file documented as of this encounter Miscellaneous Notes * Cerner Conversion Note - William Reyes MD - 01/23/2019 5:18 PM CLASSIFICATION COUNSELOR [address] [address] HISTORY AND PHYSICAL PATIENT IDENTIFICATION: MONIKA ZIMMER (Female - 1960) ACCOUNT / UNIT NUMBER: [id number] / [id number] PRIMARY CARE PHYSICIAN: WILMA HOWARD APRN PATIENT LOCATION: [facility] 300-11 ADMIT DATE / TIME: 01/23/19 1051 DISCHARGE DATE / TIME: DICTATED: 01/23/19 1218 by DANIEL DICKERSON TRANSCRIBED: 01/23/19 1343 by PS IMPORTED: 01/23/19 1344 CC: WILMA HOWARD APRN; DANIEL DICKERSON PA-C; GLENN LAWRENCE\R\ [facility] Original Dictated By: MARIA GUADALUPE Hernandez [...] in bed. She is in observation the [facility] floor under the care of the [...] 0.4 mg sublingual for chest pain. 16. [place] 10/325 mg 1-2 tabs q.4 h. as [...] ct ivnm] Electronically signed by Luigi, [facility] Conversion Powerhouse Electrician Apprentice Cerner at 02/21/2023 1:44 PM CDT documented in this encounter Plan of Treatment Not on file documented as of this encounter Visit Diagnoses Not on filedocumented in this encounter Care Teams Manager Room Relationship Specialty Start Date End Date Taina Lyles, ADRI [address] [place] [address] PCP - General Nurse Practitioner 06/15/23 documented as of this encounter
--- OUTSIDE RECORDS SUMMARY | 2025-08-17 15:24 | XMS_ITS | Encounter Summary ---
Author Organization [employer] ([place], [place], [place], [place]) Address [address] [place] [address] Care Team Providers Care Director Medical Surgical Name Role Phone Taina Lyles ADRI Primary Care Provider [phone] Encounter Details Date Type Department Care Team (Late st Contact Info) Description 09/09/2020 Transcribed Document [facility] [place] Family Medicine [address] [place] [address] ProviderWilliam MD [address] [place], [place] [id number] Social History Tobacco Use Types Packs/Day Years [...] On: 09/09/2020 12:24 EDT by KEITH TAVERA, STOCKROOM ATTENDANT Event Note ED Event Date/Time : 09/09/2020 12:24 EDT ED Event Location : Assigned room ED Event Details : Nursing assessment additional narrative ED Description of Event : pt is up for discharge. has called son to come supervisor opening and picking patient KEITH TAVERA, RN - 09/09/2020 12:24 EDT documented in this encounter Plan of Treatment Not on file documented as of this encounter Visit Diagnoses Not on filedocumented in this encounter Care Teams Director Medical Surgical Relationship Specialty Start Date End Date Taina Lyles, MANAGER OF FINANCE [address] [place] [address] PCP - General Nurse Practitioner 06/15/23 documented as of this encounter
--- OUTSIDE RECORDS SUMMARY | 2025-08-17 15:24 | XMS_ITS | Encounter Summary ---
Author Organization [employer] ([place], [place], [place], [place]) Address [address] [place] [address] Care Team Providers Care Milk Truck Driver Name Role Phone Taina Lyles ADRI Primary Care Provider [phone] Encounter Details Date Type Department Care Team (Late st Contact Info) Description 09/09/2020 Transcribed Document [facility] [place] [address] [place] [address] ProviderWilliam MD [address] [place] [address] Social History Tobacco Use Types Packs/Day Years [...] On: 09/09/2020 15:09 EDT by KEITH TAVERA managed care coordinator Process Patient Disposition : Discharge Personal Belongings [...] on filedocumented in this encounter Care Teams Milk Truck Driver Relationship Specialty Start Date End Date Taina Lyles, ADRI [address] [place] [address] PCP - General Nurse Practitioner 06/15/23 documented as of this encounter
--- OUTSIDE RECORDS SUMMARY | 2025-08-17 15:24 | XMS_ITS | Encounter Summary ---
Author Organization [employer] ([place], [place], [place], [place]) Address [address] [place] [address] Care Team Providers Care Stone Rougher Name Role Phone Taina Lyles APRN Primary Care Provider [phone] Encounter Details Date Type Department Care Team (Late st Contact Info) Description 09/09/2020 Transcribed Document [facility] [place] Family Medicine [address] [place] [address] ProviderWilliam MD [address] [place], [place] [address] Social History Tobacco Use Types Packs/Day Years [...] on filedocumented in this encounter Care Teams Stone Rougher Relationship Specialty Start Date End Date Taina Lyles, ADRI [address] [place] [address] PCP - General Nurse Practitioner 06/15/23 documented as of this encounter
--- OUTSIDE RECORDS SUMMARY | 2025-08-17 15:24 | XMS_ITS | Encounter Summary ---
Author Organization Healthcare Address [address] [place] [address] Care Team Providers Care Finance Business Manager Name Role Phone Wilma Howard Ambar ROUSEN Primary Care Provider [phone] Lea Fernando Unavailable [phone] Rachel Ray SALES AGENT BUSINESS SERVICES Unavailable [phone] Taina Lyles SALES AGENT BUSINESS SERVICES Primary Care Provider [phone] Monique Tapia LPN Unavailable Unavailable Alvarez Zimmer MD Primary Care Provider [phone] Shaniqua Trevino CASING PULLER Unavailable Unavailable Tamera Isabel CASING PULLER Unavailable UnavailAlina Bedolla RN Unavailable Unavailab Monique Che LPN Unavailable Unavailable Encounter Details Date Type Department Care Team (Late st Contact Info) Description 02/02/2024 Orders Only External Location [address] [place] [address] Provider, External Social History Tobacco Use Types [...] EDT Clinical Support [facility] [place] [address] [place] [address] 08/20/2025 10:30 [address] EDT [address] [facility] [place] [address] [facility] [place] [address] [place] [address] 08/20/2025 11:00 AM EDT Office Visit [facility] [place] [address] [place] [address] Jude Duque MD [address] [facility] [address] [place] [address] 08/22/2025 11:15 AM EDT Appointment [facility] Inter[facility] [address] [place] [address] 08/22/2025 12:15 PM EDT Appointment [facility] [address] [place] [address] 08/26/2025 1:00 PM EDT Office Visit [facility] Endocrinology [address] [place] [address] Miranda Hobson P, SALES AGENT BUSINESS SERVICES [address] [place] [address] 08/29/2025 10:00 AM EDT Appointment [facility] [address] [place] [address] 08/29/2025 11:00 AM EDT Appointment [facility] [address] [place] [address] 09/05/2025 10:00 AM EDT Appointment [facility] [address] [place] [address] 09/05/2025 11:00 AM EDT Appointment [facility] [address] [place] [address] documented as of this encounter Procedures Procedure [...] documented as of this encounter Care Teams Finance Business Manager Relationship Specialty Start Date End Date Wilma Howard APRN [address] [place] [address] [place] [address] PCP - General 04/03/21 09/30/24 Taina Lyles APRN [address] [place] [address] [place] [address] PCP - General 10/01/24 12/06/24 Alvarez Zimmer MD [facility] [place] [address] PCP - General Family Medicine 12/07/24 Lea Fernando [address] [place] [address] Vegetable Harvest Worker Endocrinology 08/29/24 Rachel Ray, ADRI [address] [place] [address] Nurse Practitioner Gastroenterology 09/24/24 Monique Tapia LPN VALUE-[employer]ED [place] [address] TCM Nurse 11/28/24 12/28/24 Shaniqua Trevino LPN TCM Nurse 01/15/25 02/14/25 Tamera Isabel LPN VALUE-BASED TRANSFORMATION PROGRAM Licensed Practical Nurse 05/29/25 Alina Lovett, RN CH-VASCULAR & INTERVENTIONAL RADIOLOGY Registered Nurse 06/26/25 06/26/25 Monique Tapia LPN VALUE-[place] [address] TCM Nurse 07/10/25 08/09/25 documented as of this encounter
--- OUTSIDE RECORDS SUMMARY | 2025-08-17 15:24 | XMS_ITS | Encounter Summary ---
Author Organization [employer] ([place], [place], [place], [place]) Address [address] [place] [address] Care Team Providers Care Hair Dryer Name Role Phone Taina Lyles ADRI Primary Care Provider [phone] Encounter Details Date Type Department Care Team (Late st Contact Info) Description 07/01/2021 Transcribed Document [facility] [place] Family Medicine [address] [place] [address] ProviderWilliam MD [address] [place], [place] [address] Social History Tobacco Use Types Packs/Day Years [...] Performed On: 07/01/2021 17:31 EDT by Medina aLi RN Broset Violence Assessment Broset Violence Checklist of Symptoms : None Broset Violence Symptoms Subtotal : 0 Broset Violence Symptoms Indicator : Low risk (0) Broset Interventions : [place] precautions for safety used Medina Lai RN - 07/01/2021 17:31 EDT Electronically signed by Maddie Meyers Conversion Retail Product Demo Specialist Cerner at 03/07/2023 9:46 AM CDT documented in this encounter Plan of Treatment Not on file documented as of this encounter Visit Diagnoses Not on filedocumented in this encounter Care Teams Hair Dryer Relationship Specialty Start Date End Date Taina Lyles, CONSUMER CREDIT COUNSELOR [address] [place] [address] PCP - General Nurse Practitioner 06/15/23 documented as of this encounter
--- OUTSIDE RECORDS SUMMARY | 2025-08-17 15:24 | XMS_ITS | Encounter Summary ---
Author Organization Healthcare Address [address] [place] [address] Care Team Providers Care Copier Operator Name Role Phone Wilma Howard Ambar ROUSEN Primary Care Provider [phone] Lea Fernando Unavailable [phone] Rachel Ray GRANULAR OPERATOR Unavailable [phone] Taina Lyles GRANULAR OPERATOR Primary Care Provider [phone] Monique Tapia LPN Unavailable Unavailable Alvarez Zimmer MD Primary Care Provider [phone] Shaniqua Trevino CAN LABELER Unavailable Unavailable Tamera Isabel CAN LABELER Unavailable UnavailAlina Bedolla RN Unavailable Unavailab Monique Che LPN Unavailable Unavailable Encounter Details Date Type Department Care Team (Late st Contact Info) Description 09/14/2024 Orders Only External Location [address] [place] [address] Provider, External Social History Tobacco Use Types [...] in a detention (including now)? Yes 08/29/2024 Education Answer Date [...] Transplant Center [address] [place] [address] 08/20/2025 10:30 AM EDT Social Work [facility] Transplant [facility] [address] [place] [address] Deysi Ortega [place], [place] [address] 08/20/2025 11:00 AM EDT Office Visit [facility] [address] [place] [address] Jude Duque MD [address] [place] [address] 08/22/2025 11:15 AM EDT Appointment [facility] [address] [place] [address] 08/22/2025 12:15 PM EDT Appointment [facility] Rad[facility] [address] [place] [address] 08/26/2025 1:00 PM EDT Office Visit [facility] Endocrinology [address] [place] [address] Miranda Hobson P, GRANULAR OPERATOR [address] [facility] [address] [place] [address] 08/29/2025 10:00 AM EDT Appointment [facility] [address] [place] [address] 08/29/2025 11:00 AM EDT Appointment [facility] [address] [place] [address] 09/05/2025 10:00 AM EDT Appointment [facility] [address] [place] [address] 09/05/2025 11:00 AM EDT Appointment [facility] [address] [place] [address] documented as of this encounter Procedures Procedure [...] documented as of this encounter Care Teams Copier Operator Relationship Specialty Start Date End Date Wilma Howard APRN [address] [place] [address] [place] [address] PCP - General 04/03/21 09/30/24 Taina Lyles APRN [address] [place] [address] [place] [address] PCP - General 10/01/24 12/06/24 Alvarez Zimmer MD [address] [place] [address] PCP - General Family Medicine 12/07/24 Lea Fernando [address] [place] [address] Solar Hot Water Installer Endocrinology 08/29/24 Rachel Ray APRN [address] [place] [address] Nurse Practitioner Gastroenterology 09/24/24 Monique Tapia LPN VALUE-BASED [place] [address] TCM Nurse 11/28/24 12/28/24 Shaniqua Trevino LPN TCM Nurse 01/15/25 02/14/25 Tamera Isabel LPN VALUE-BASED TRANSFORMATION PROGRAM Licensed Practical Nurse 05/29/25 Alina Lovett, RN CH-VASCULAR & INTERVENTIONAL RADIOLOGY Registered Nurse 06/26/25 06/26/25 Monique Tapia LPN VALUE-BASED [place] [address] TCM Nurse 07/10/25 08/09/25 documented as of this encounter
--- OUTSIDE RECORDS SUMMARY | 2025-08-17 15:24 | XMS_ITS | Encounter Summary ---
Author Organization Healthcare Address [address] [place] [address] Care Team Providers Care Quality Improvement Engineer Name Role Phone Lea Fernando Unavailable [phone] Rachel Ray OXYACETYLENE CUTTER Unavailable [phone] Alvarez Zimmer MD Primary Care Provider [phone] Tamera Isabel LPN Unavailable Unavailabl Alina Jennings RN Unavailable Unavailab le Encounter Details Date Type Department Care Team (Late st Contact Info) Description 06/23/2025 Orders Only External Location [address] [place] [address] Kandice Maldonado, OXYACETYLENE CUTTER [address] [place] [address] Social History Tobacco Use Types [...] o r organizations such as anglican groups, [employer], [employer] or athletic groups, or school groups? Patient [...] week 05/29/2025 How often do you attend [facility] ch or hindu services? Never 05/29/2025 Do you belong to any clubs o r organizations such as anglican groups, unions, [employer] or athletic groups, or school groups? No [...] more drinks on one occasion? Never 06/25/2025 [facility] - [...] drink first t kennedy in the morning (EYE-REUSE TECHNICIAN) to steady your nerves or to get rid of a hangover? 0 06/25/2025 CAGE Questionnaire Score 0 025 Utilities Answer Date Recorded In the past 12 months has th [employer] electric, gas, oil, or water company threatened [...] Description 08/20/2025 9:30 AM EDT Clinical Support [facility] [place] [address] [facility] [address] [place] [address] 08/20/2025 10:30 AM EDT Social Work [facility] [place] [address] [facility] [address] [place] [address] [place] [address] 08/20/2025 11:00 AM EDT Office Visit [facility] [place] [address] [facility] [address] [place] [address] Jude Duque MD [address] [facility] [address] [place] [address] 08/22/2025 11:15 AM EDT Appointment [facility] Inter[facility] Radiology [address] [place] [address] 08/22/2025 12:15 PM EDT Appointment [facility] Inter[facility] Radiology [address] [place] [address] 08/26/2025 1:00 PM EDT Office Visit [facility] [address] [place] [address] Miranda Hobson P, OXYACETYLENE CUTTER [address] [place] [address] 08/29/2025 10:00 AM EDT Appointment [facility] Inter[facility] Radiology [address] [place] [address] 08/29/2025 11:00 AM EDT Appointment [facility] Radiology [address] [place] [address] 09/05/2025 10:00 AM EDT Appointment [facility] Radiology [address] [place] [address] 09/05/2025 11:00 AM EDT Appointment [facility] Inter[facility] Radiology [address] [place] [address] documented as of this encounter Procedures Procedure [...] documented as of this encounter Care Teams Quality Improvement Engineer Relationship Specialty Start Date End Date Alvarez Zimmer MD [address] [place] [address] PCP - General Family Medicine 12/07/24 Lea Fernando [address] [facility] [address] [place] [address] Bilingual Trainer Endocrinology 08/29/24 Rachel Ray APRN [address] [facility] [address] [place] [address] Nurse Practitioner Gastroenterology 09/24/24 Tamera Isabel LPN VALUE-BASED TRANSFORMATION PROGRAM Licensed Practical Nurse 05/29/25 Alina Lovett, RN CH-VASCULAR & INTERVENTIONAL RADIOLOGY Registered Nurse 06/26/25 06/26/25 documented as of this encounter
--- OUTSIDE RECORDS SUMMARY | 2025-08-17 15:24 | XMS_ITS | Encounter Summary ---
Author Organization [employer] ([place], [place], [place], [place]) Address [address] [place] [address] Care Team Providers Care Wire Rope Sling Maker Name Role Phone Taina Lyles ADRI Primary Care Provider [phone] Encounter Details Date Type Department Care Team (Late st Contact Info) Description 09/08/2020 Transcribed Document [facility] Family Medicine [address] [place] [address] ProviderWilliam MD [address] [place], [place] [id number] Social History Tobacco Use Types Packs/Day Years [...] On: 09/08/2020 15:26 EDT by RUSTY HART SALESPERSON [employer] Triage Across the Room Chief Complaint : Pt reports Discomfront in chest that began yesterday states tingling in left arm Triage Date/Time : 09/08/2020 15:26 EDT RUSTY HART RN - 09/08/2020 15:26 EDT DCP GENERIC CODE Tracking Acuity : 2 - Emergent Tracking Group : [facility] ED [place] RUSTY HART RN [...] Problems(Active) ADD (attention deficit disorder) (SNOMED CT :3268729214 ) Name of Problem: ADD (attention deficit disorder) ; Recorder: AZALEA ALBRIGHT RN; Confirmation: Confirmed ; Classification: Patient Stated ; Code: 6458888995 ; Contributor System: [employer] Pictures ; Last Updated: 01/11/2017 14:23 EST ; Life Cycle Date: 01/11/2017 ; Life Cycle Status: Active ; Vocabulary: SNOMED CT Anxiety (SNOMED CT :1854145619 ) Name of Problem: Anxiety ; Recorder: AZALEA ALBRIGHT RN; Confirmation: Confirmed ; Classification: Patient Stated ; Code: 4108911924 ; Contributor System: [employer] Pictures ; Last Updated: 01/11/2017 14:22 EST ; Life Cycle Date: 01/11/2017 ; Life Cycle Status: Active ; Vocabulary: SNOMED CT Arthritis (SNOMED CT :7856217 ) Name of Problem: Arthritis ; Recorder: LANNY BELLO RN; Confirmation: Confirmed ; Classification: Medical ; Code: 8780458 ; Contributor System: ikeGPSChart ; Last Updated: 09/11/2015 14:10 EDT ; Life Cycle Date: 09/11/2015 ; Life Cycle Status: Active ; Vocabulary: SNOMED CT bilateral knee pain (SNOMED CT :38302523 ) Name of Problem: bilateral knee pain ; Recorder: LANNY BELLO RN; Confirmation: Confirmed ; Classification: Medical ; Code: 23925279 ; Contributor System: ikeGPSChart ; Last Updated: 08/12/2017 10:18 EDT ; Life Cycle Date: 09/11/2015 ; Life Cycle Status: Active ; Vocabulary: SNOMED CT Chronic depression (SNOMED CT :236575670 ) Name of Problem: Chronic depression ; Recorder: AZALEA ALBRIGHT RN; Confirmation: Confirmed ; Classification: Patient Stated ; Code: 786658497 ; Contributor System: PowerChart ; Last Updated: 01/11/2017 14:23 EST ; Life Cycle Date: 01/11/2017 ; Life Cycle Status: Active ; Vocabulary: SNOMED CT Diabetes (SNOMED CT :115014970 ) Name of Problem: Diabetes ; Recorder: LANNY BELLO RN; Confirmation: Confirmed ; Classification: Medical ; Code: 530609192 ; Contributor System: ikeGPSChart ; Last Updated: 09/11/2015 14:10 EDT ; Life Cycle Date: 09/11/2015 ; Life Cycle Status: Active ; Vocabulary: SNOMED CT GERD (gastroesophageal reflux disease) (SNOMED CT :582194253 ) Name of Problem: GERD (gastroesophageal reflux disease) ; Recorder: LANNY BELLO RN; Confirmation: Confirmed ; Classification: Medical ; Code: 579028940 ; Contributor System: ikeGPSChart ; Last Updated: 09/11/2015 14:11 EDT ; Life Cycle Date: 09/11/2015 ; Life Cycle Status: Active ; Vocabulary: SNOMED CT H/O syncope (SNOMED CT :4259877567 ) Name of Problem: H/O syncope ; Recorder: AZALEA ALBRIGHT RN; Confirmation: Confirmed ; Classification: Patient Stated ; Code: 7412372307 ; Contributor System: PowerChart ; Last Updated: 01/11/2017 14:29 EST ; Life Cycle Date: 01/11/2017 ; Life Cycle Status: Active ; Vocabulary: SNOMED CT History of recurrent UTIs (SNOMED CT :864696604 ) Name of Problem: History of recurrent UTIs ; Recorder: AZALEA ALBRIGHT RN; Confirmation: Confirmed ; Classification: Patient Stated ; Code: 749103055 ; Contributor System: PowerChart ; Last Updated: 01/11/2017 14:22 EST ; Life Cycle Date: 01/11/2017 ; Life Cycle Status: Active ; Vocabulary: SNOMED CT Hyperlipidemia (SNOMED CT :37539846 ) Name of Problem: Hyperlipidemia ; Recorder: LANNY BELLO RN; Confirmation: Confirmed ; Classification: Medical ; Code: 22276654 ; Contributor System: ikeGPSChart ; Last Updated: 09/11/2015 14:10 EDT ; Life Cycle Date: 09/11/2015 ; Life Cycle Status: Active ; Vocabulary: SNOMED CT Renal insufficiency (SNOMED CT :4482442697 ) Name of Problem: Renal insufficiency ; Recorder: AZALEA ALBRIGHT RN; Confirmation: Confirmed ; Classification: Patient Stated ; Code: 9750057203 ; Contributor System: PowerChart ; Last Updated: 01/11/2017 14:22 EST ; Life Cycle Date: 01/11/2017 ; Life Cycle Status: Active ; Vocabulary: SNOMED CT right carpal tunnel (SNOMED CT :48084628 ) Name of Problem: right carpal tunnel ; Recorder: LANNY BELLO RN; Confirmation: Confirmed ; Classification: Medical ; Code: 84403767 ; Contributor System: PowerChart ; Last Updated: 09/02/2017 10:07 EDT ; Life Cycle Date: 09/11/2015 ; Life Cycle Status: Active ; Vocabulary: SNOMED CT Right tennis elbow (SNOMED CT :9546833415 ) Name of Problem: Right tennis elbow ; Recorder: LANNY BELLO RN; Confirmation: Confirmed ; Classification: Medical ; Code: 2221266526 ; Contributor System: PowerChart ; Last Updated: 05/21/2019 14:33 EDT ; Life Cycle Status: Active ; Vocabulary: SNOMED CT ; Comments: 09/11/2015 14:11 - LANNY BELLO RN recent diagnosis RLS (restless legs syndrome) (SNOMED CT :54432555 ) Name of Problem: RLS (restless legs syndrome) ; Recorder: LANNY BELLO RN; Confirmation: Confirmed ; Classification: Medical ; Code: 77508998 ; Contributor System: PowerChart ; Last Updated: 09/11/2015 14:33 EDT ; Life Cycle Date: 09/11/2015 ; Life Cycle Status: Active ; Vocabulary: SNOMED CT sleep apnea with Cpap (SNOMED CT :812646849 ) Name of Problem: sleep apnea with Cpap ; Recorder: LANNY BELLO RN; Confirmation: Confirmed ; Classification: Medical ; Code: 749823903 ; Contributor System: ikeGPSChart ; Last Updated: 08/12/2017 11:32 EDT ; Life Cycle Date: 09/11/2015 ; Life Cycle Status: Active ; Vocabulary: SNOMED CT Stress incontinence (SNOMED CT :876938228 ) Name of Problem: Stress incontinence ; Recorder: LANNY BELLO RN; Confirmation: Confirmed ; Classification: Medical ; Code: 176620210 ; Contributor System: PowerChart ; Last Updated: 09/11/2015 14:12 EDT ; Life Cycle Date: 09/11/2015 ; Life Cycle Status: Active ; Vocabulary: SNOMED CT Diagnoses(Active) Chest pain Date: 09/08/2020 ; Diagnosis Type: Reason For Visit ; Confirmation: Complaint of ; Clinical Dx: Chest pain ; Classification: Medical ; Clinical Service: Emergency medicine ; Code: PNED ; Probability: 0 ; Diagnosis Code: [id number] ED Height and Weight Height Source : Estimated Height Entry Format : [place] Height, Feet : 5 ft(Converted to: 152 cm, 60 Inch) Height, Inches : 5 Inch(Converted to: 0 ft 5 Inch, 12.70 cm) Clinical Height : 165.1 cm Weight Source, ED : Critical estimated dosing weight Weight Entry Format : [place] Weight, Pounds : 190 lb Clinical Dosing Weight : 86.36 kg Body Surface Area (BSA) : 1.94 m2 Body Mass Index : 31.7 kg/m2 (HI) [place] Body Weight (IBW) : 56.59 kg RUSTY HART, RN - 09/08/2020 15:26 EDT documented in this encounter Plan of Treatment Not on file documented as of this encounter Visit Diagnoses Not on filedocumented in this encounter Care Teams Wire Rope Sling Maker Relationship Specialty Start Date End Date Taina Lyles, SWIMMING POOL SERVICER [address] [place] [address] PCP - General Nurse Practitioner 06/15/23 documented as of this encounter
--- OUTSIDE RECORDS SUMMARY | 2025-08-17 15:24 | XMS_ITS | Encounter Summary ---
Author Organization Healthcare Address [address] [place] [address] Care Team Providers Care Fusing Furnace Loader Name Role Phone Wilma Howard Ambar ROUSEN Primary Care Provider [phone] Lea Fernando Unavailable [phone] Rachel Ray ORACLE EBS CONSULTANT Unavailable [phone] Taina Lyles ORACLE EBS CONSULTANT Primary Care Provider [phone] Monique Tpaia LPN Unavailable Unavailable Alvarez Zimmer MD Primary Care Provider [phone] Shaniqua Trevino FIBERGLASS TUBE MOLDER Unavailable Unavailable Tamera Isabel FIBERGLASS TUBE MOLDER Unavailable UnavailAlina Bedolla RN Unavailable Unavailab Monique Che LPN Unavailable Unavailable Encounter Details Date Type Department Care Team (Late st Contact Info) Description 12/15/2023 Orders Only External Location [address] [place] [id number] Provider, External Social History Tobacco Use Types [...] Description 08/20/2025 9:30 AM EDT Clinical Support [facility] [place] [address] [place] [address] 08/20/2025 10:30 AM EDT Social Work [facility] [place] [address] [facility] [place] [address] [place] [address] 08/20/2025 11:00 AM EDT Office Visit [facility] [place] [address] [place] [address] Jude Duque MD [address] [facility] [address] [place] [address] 08/22/2025 11:15 AM EDT Appointment [facility] [address] [place] [address] 08/22/2025 12:15 PM EDT Appointment [facility] [address] [place] [address] 08/26/2025 1:00 PM EDT Office Visit [facility] Endocrinology [address] [place] [address] Miranda Hobson P, ORACLE EBS CONSULTANT [address] [place] [address] 08/29/2025 10:00 AM EDT Appointment [facility] [address] [place] [address] 08/29/2025 11:00 AM EDT Appointment [facility] [address] [place] [address] 09/05/2025 10:00 AM EDT Appointment [facility] [address] [place] [address] 09/05/2025 11:00 AM EDT Appointment [facility] [address] [place] [address] documented as of this encounter Procedures Procedure [...] documented as of this encounter Care Teams Fusing Furnace Loader Relationship Specialty Start Date End Date Wilma Howard APRN [address] [place] [address] [place] [address] PCP - General 04/03/21 09/30/24 Taina Lyles APRN [address] [place] [address] [place] [address] PCP - General 10/01/24 12/06/24 Alvarez Zimmer MD [facility] [place] [address] PCP - General Family Medicine 12/07/24 Lea Fernando [address] [place] [address] Edging Machine Feeder Endocrinology 08/29/24 Rachel Ray APRN [address] [place] [address] Nurse Practitioner Gastroenterology 09/24/24 Monique Tapia LPN VALUE-BASED [place] [address] TCM Nurse 11/28/24 12/28/24 Shaniqua Trevino LPN TCM Nurse 01/15/25 02/14/25 Tamera Isabel LPN VALUE-BASED TRANSFORMATION PROGRAM Licensed Practical Nurse 05/29/25 Alina Lovett, RN [facility] INTERVENTIONAL RADIOLOGY Registered Nurse 06/26/25 06/26/25 Monique Tapia LPN VALUE-[employer]ED [place] [address] TCM Nurse 07/10/25 08/09/25 documented as of this encounter
--- OUTSIDE RECORDS SUMMARY | 2025-08-17 15:24 | XMS_ITS | Encounter Summary ---
Author Organization Healthcare Address [address] [place] [address] Care Team Providers Care Clinic Scheduler Name Role Phone Lea Fernando Unavailable [phone] Rachel Ray IDENTITY MANAGEMENT CONSULTANT Unavailable [phone] Alvarez Zimmer MD Primary Care Provider [phone] Tamera Isabel LPN Unavailable Unavailabl Alina Jennings RN Unavailable Unavailab le Encounter Details Date Type Department Care Team (Late st Contact Info) Description 06/23/2025 Orders Only External Location [address] [place] [address] Kandice Maldonado, IDENTITY MANAGEMENT CONSULTANT [address] [place] [address] Social History Tobacco Use Types [...] you attend chur ch or druze services? Patient unable to answer 01/10/2025 Do you belong to any clubs o r organizations such as jain groups, [employer], [employer] or athletic groups, or school groups? Patient [...] week 05/29/2025 How often do you attend [facility] ch or druze services? Never 05/29/2025 Do you belong to any clubs o r organizations such as jain groups, unions, [employer] or athletic groups, or school groups? No [...] more drinks on one occasion? Never 06/25/2025 [facility] of Occupat ional [...] drink first t kennedy in the morning (EYE-INTERNAL MEDICINE VETERINARY TECHNICIAN) to steady your nerves or to get rid of a hangover? 0 06/25/2025 CAGE Questionnaire Score 0 025 Utilities Answer Date Recorded In the past 12 months has th [employer] electric, gas, oil, or water company threatened [...] [facility] [place] [address] [facility] [address] [place] [address] 08/20/2025 10:30 AM EDT Social Work [facility] [place] [address] [facility] [address] [place] [address] [place] [address] 08/20/2025 11:00 AM EDT Office Visit [facility] [place] [address] [facility] [address] [place] [address] Jude Duque MD [address] [facility] [address] [place] [address] 08/22/2025 11:15 AM EDT Appointment [facility] [address] [place] [address] 08/22/2025 12:15 PM EDT Appointment [facility] [address] [place] [address] 08/26/2025 1:00 PM EDT Office Visit [facility] [address] [place] [address] Miranda Hobson P, IDENTITY MANAGEMENT CONSULTANT [address] [place] [address] 08/29/2025 10:00 AM EDT Appointment [facility] [address] [place] [address] 08/29/2025 11:00 AM EDT Appointment [facility] [address] [place] [address] 09/05/2025 10:00 AM EDT Appointment [facility] [address] [place] [address] 09/05/2025 11:00 AM EDT Appointment [facility] [address] [place] [address] documented as of this encounter Procedures Procedure Name Priority Date/Time Associated Diagnosis Comments XR OUTSIDE IMAGES 06/23/2025 5:56 PM EDT documented in this encounter Results * XR OUTSIDE IMAGES (06/23/2025 5:56 PM EDT) Anatomical Region Laterality Modality Radiographic Mairposa ging 06/23/2025 5:56 PM EDT Kandice Maldonado [...] documented as of this encounter Care Teams Clinic Scheduler Relationship Specialty Start Date End Date Alvarez Zimmer MD [address] [place] [address] PCP - General Family Medicine 12/07/24 Lea Fernando [address] [facility] [address] [place] [address] Apartment Community Manager Endocrinology 08/29/24 Rachel Ray APRN [address] [facility] [address] [place] [address] Nurse Practitioner Gastroenterology 09/24/24 Tamera Isabel LPN VALUE-BASED TRANSFORMATION PROGRAM Licensed Practical Nurse 05/29/25 Alina Lovett, RN [facility]VASC[facility] INTERVENTIONAL RADIOLOGY Registered Nurse 06/26/25 06/26/25 documented as of this encounter
--- OUTSIDE RECORDS SUMMARY | 2025-08-17 15:24 | XMS_ITS | Clinical Summary ---
Author Organization [employer] [facility] Address [address] [place] [address], [address] [place] [address] Care Team Providers Care Reel Slitter Name Role Phone System, Referring Not In [...] (before breakfast) Active Multiple Vitamins-Minera ls (THERAPEUTIC MULTIVITAMIN-FL NERALS) tablet Take 1 tablet by mouth daily Active Foster-3 Fatty Acids (FISH OIL) 1000 MG CAPS [...] of Treatment Not on file Care Teams Reel Slitter Relationship Specialty Start Date End Date System, Referring Not In PCP - General 06/30/16
--- OUTSIDE RECORDS SUMMARY | 2025-08-17 15:24 | XMS_ITS | Encounter Summary ---
Author Organization [employer] ([place], [place], [place], [place]) Address [address] [place] [address] Care Team Providers Care Atomic Process Engineer Name Role Phone Taina Lyles ADRI Primary Care Provider [phone] Encounter Details Date Type Department Care Team (Late st Contact Info) Description 09/09/2020 Transcribed Document [facility] Family Medicine [address] [place] [address] ProviderWilliam MD [address] [place], [place] [address] Social History Tobacco Use Types Packs/Day Years [...] On: 09/09/2020 15:08 EDT by KEITH TAVERA, TREASURER [employer] Event Note ED Event Date/Time : 09/09/2020 [...] on filedocumented in this encounter Care Teams Atomic Process Engineer Relationship Specialty Start Date End Date Taina Lyles, CLEAN RICE BROKER [address] [place] [address] PCP - General Nurse Practitioner 06/15/23 documented as of this encounter
--- OUTSIDE RECORDS SUMMARY | 2025-08-17 15:24 | XMS_ITS | Encounter Summary ---
Author Organization [employer] ([place], [place], [place], [place]) Address [address] [place] [address] Care Team Providers Care Rn Observation Name Role Phone Taina Lyles ADRI Primary Care Provider [phone] Encounter Details Date Type Department Care Team (Late st Contact Info) Description 09/08/2020 Transcribed Document [facility] Family Medicine [address] [place] [address] ProviderWilliam MD [address] [place], [place] [address] Social History Tobacco Use Types Packs/Day Years [...] the text rendition version of the form. Electronically signed by Maddie Meyers Conversion Noxious Weeds And Pest Inspector Cerner at 03/07/2023 9:34 AM CDT documented in this encounter Plan of Treatment Not on file documented as of this encounter Visit Diagnoses Not on filedocumented in this encounter Care Teams Rn Observation Relationship Specialty Start Date End Date Taina Lyles, CARDIOVASCULAR DISEASE SPECIALIST [address] [place] [address] PCP - General Nurse Practitioner 06/15/23 documented as of this encounter
--- OUTSIDE RECORDS SUMMARY | 2025-08-17 15:24 | XMS_ITS | Encounter Summary ---
Author Organization [employer] ([place], [place], [place], [place]) Address [address] [place] [address] Care Team Providers Care Supervisor Fertilizer Name Role Phone Taina Lyles PSYCHIATRIC TECHNICIAN ASSISTANT Primary Care Provider [phone] Encounter Details Date Type Department Care Team (Late st Contact Info) Description 09/08/2020 Transcribed Document [facility] [place] [address] [place] [address] ProviderWilliam MD [address] [place], [place] [address] Social History Tobacco Use Types Packs/Day Years [...] Tab, Oral, QAM, 30 Tab, 0 Refill(s) [place] 7.5 mg-325 mg oral tablet: 1 Tab, [...] list: All Problems Anxiety / SNOMED CT 8855198647 / Confirmed Arthritis / SNOMED CT 0456652 / Confirmed ADD (attention deficit disorder) / SNOMED CT 2980872552 / Confirmed right carpal tunnel / SNOMED CT 85010373 / Confirmed Chronic depression / SNOMED CT 085551036 / Confirmed Diabetes / SNOMED CT 327251275 / Confirmed GERD (gastroesophageal reflux disease) / SNOMED CT 901407431 / Confirmed Stress incontinence / SNOMED CT 112471636 / Confirmed History of recurrent UTIs / SNOMED CT 780879566 / Confirmed H/O syncope / SNOMED CT 7910938631 / Confirmed Hyperlipidemia / SNOMED CT 81165422 / Confirmed bilateral knee pain / SNOMED CT 68147087 / Confirmed Right tennis elbow / SNOMED CT 1068914339 / Confirmed recent diagnosis Renal insufficiency / SNOMED CT 2541255185 / Confirmed RLS (restless legs syndrome) / SNOMED CT 13024622 / Confirmed sleep apnea with Cpap / SNOMED CT 893619638 / Confirmed, Active Problems (16) ADD (attention [...] EDT Height Source Estimated Height Entry Format [employer] Height/Length, [place] (ft) 5 ft Height/Length [place] 5 Inch CLINICALHEIGHT 165.1 cm [place] Body Weight 56.59 kg Weight Source, ED Critical estimated dosing weight Weight Entry Format [employer] Weight German lb 190 lb CLINICALWEIGHT 86.36 kg Body [...] to OP workup Electronically signed by Luigi, [facility] Conversion Robotic Welding Operator Cerner at 03/07/2023 9:46 AM CDT documented in this encounter Plan of Treatment Not on file documented as of this encounter Visit Diagnoses Not on filedocumented in this encounter Care Teams Supervisor Fertilizer Relationship Specialty Start Date End Date Taina Lyles, PSYCHIATRIC TECHNICIAN ASSISTANT [address] [place] [address] PCP - General Nurse Practitioner 06/15/23 documented as of this encounter
--- OUTSIDE RECORDS SUMMARY | 2025-08-17 15:24 | XMS_ITS | Encounter Summary ---
Author Organization [employer] ([place], [place], [place], [place]) Address [address] [place] [address] Care Team Providers Care Rug Inspector Helper Name Role Phone Taina Lyles ADRI Primary Care Provider [phone] Encounter Details Date Type Department Care Team (Late st Contact Info) Description 05/01/2019 Transcribed Document [facility] Family Medicine [address] [place] [address] ProviderWilliam MD [address] [place] [address] Social History Tobacco Use Types Packs/Day Years [...] moderate sleepiness and scores 16/24 in the [place] Sleepiness Scale. She does have insomnia for which she is using trazodone with good benefit. OTHER MEDICAL PROBLEMS: Include diabetes mellitus, obesity, and depression. MEDICATIONS: 1. Azelastine. 2. Magnesium. 3. Bupropion. 4. Venlafaxine. 5. Multivitamin. 6. Ranitidine. 7. Carvedilol. 8. Oxybutynin. 9. Plaquenil. 10. Humulin R. 11. Baclofen. 12. [place]. 13. Prednisone. 14. Atorvastatin. 15. Humulin. 16. [...] Dr. Wilma Howard Electronically signed by Luigi [facility] Conversion Medical Laboratory Technician Cerner at 03/07/2023 9:43 AM CDT documented in this encounter Plan of Treatment Not on file documented as of this encounter Visit Diagnoses Not on filedocumented in this encounter Care Teams Rug Inspector Helper Relationship Specialty Start Date End Date Taina Lyles, COMPUTER SYSTEMS SOFTWARE ENGINEER [address] [place] [address] PCP - General Nurse Practitioner 06/15/23 documented as of this encounter
--- OUTSIDE RECORDS SUMMARY | 2025-08-17 15:24 | XMS_ITS | Encounter Summary ---
Author Organization [email or web address] ([place], [place], [place], [place]) Address [address] [place] [address] Care Team Providers Care Standard Machine Stitcher Name Role Phone Taina Lyles ADRI Primary Care Provider [phone] Encounter Details Date Type Department Care Team (Late st Contact Info) Description 07/01/2021 Transcribed Document [facility] [place] Family Medicine [address] [place] [address] ProviderWilliam MD [address] [place], [place] [address] Social History Tobacco Use Types Packs/Day Years [...] : 3 - Urgent Tracking [facility] LANG WOOD RN - 07/01/2021 [...] Problems(Active) ADD (attention deficit disorder) (SNOMED CT :4410260893 ) Name of Problem: ADD (attention deficit disorder) ; Recorder: AZALEA ALBRIGHT RN; Confirmation: Confirmed ; Classification: Patient Stated ; Code: 9000187901 ; Contributor System: [employer]ug[employer] ; Last Updated: 01/11/2017 14:23 EST ; Life Cycle Date: 01/11/2017 ; Life Cycle Status: Active ; Vocabulary: SNOMED CT Anxiety (SNOMED CT :3080924327 ) Name of Problem: Anxiety ; Recorder: AZALEA ALBRIGHT RN; Confirmation: Confirmed ; Classification: Patient Stated ; Code: [id number] ; Contributor System: PowerChart ; Last Updated: 01/11/2017 14:22 EST ; Life Cycle Date: 01/11/2017 ; Life Cycle Status: Active ; Vocabulary: SNOMED CT Arthritis (SNOMED CT :5633575 ) Name of Problem: Arthritis ; Recorder: LANNY BELLO RN; Confirmation: Confirmed ; Classification: Medical ; Code: 7444951 ; Contributor System: [employer] ; Last Updated: 09/11/2015 14:10 EDT ; Life Cycle Date: 09/11/2015 ; Life Cycle Status: Active ; Vocabulary: SNOMED CT bilateral knee pain (SNOMED CT :82986704 ) Name of Problem: bilateral knee pain ; Recorder: LANNY BELLO RN; Confirmation: Confirmed ; Classification: Medical ; Code: 11150105 ; Contributor System: QuaeroChart ; Last Updated: 08/12/2017 10:18 EDT ; Life Cycle Date: 09/11/2015 ; Life Cycle Status: Active ; Vocabulary: SNOMED CT Chronic depression (SNOMED CT :617395224 ) Name of Problem: Chronic depression ; Recorder: AZALEA ALBRIGHT RN; Confirmation: Confirmed ; Classification: Patient Stated ; Code: 006730692 ; Contributor System: QuaeroChart ; Last Updated: 01/11/2017 14:23 EST ; Life Cycle Date: 01/11/2017 ; Life Cycle Status: Active ; Vocabulary: SNOMED CT Diabetes (SNOMED CT :447359123 ) Name of Problem: Diabetes ; Recorder: LANNY BELLO RN; Confirmation: Confirmed ; Classification: Medical ; Code: 771338576 ; Contributor System: PowerChart ; Last Updated: 09/11/2015 14:10 EDT ; Life Cycle Date: 09/11/2015 ; Life Cycle Status: Active ; Vocabulary: SNOMED CT GERD (gastroesophageal reflux disease) (SNOMED CT :327716391 ) Name of Problem: GERD (gastroesophageal reflux disease) ; Recorder: LANNY BELLO RN; Confirmation: Confirmed ; Classification: Medical ; Code: 748284192 ; Contributor System: [employer] ; Last Updated: 09/11/2015 14:11 EDT ; Life Cycle Date: 09/11/2015 ; Life Cycle Status: Active ; Vocabulary: SNOMED CT H/O syncope (SNOMED CT :3431541923 ) Name of Problem: H/O syncope ; Recorder: AZALEA ALBRIGHT RN; Confirmation: Confirmed ; Classification: Patient Stated ; Code: 8348001694 ; Contributor System: PowerChart ; Last Updated: 01/11/2017 14:29 EST ; Life Cycle Date: 01/11/2017 ; Life Cycle Status: Active ; Vocabulary: SNOMED CT History of recurrent UTIs (SNOMED CT :115959771 ) Name of Problem: History of recurrent UTIs ; Recorder: AZALEA ALBRIGHT RN; Confirmation: Confirmed ; Classification: Patient Stated ; Code: 425121441 ; Contributor System: PowerChart ; Last Updated: 01/11/2017 14:22 EST ; Life Cycle Date: 01/11/2017 ; Life Cycle Status: Active ; Vocabulary: SNOMED CT Hyperlipidemia (SNOMED CT :72537813 ) Name of Problem: Hyperlipidemia ; Recorder: LANNY BELLO RN; Confirmation: Confirmed ; Classification: Medical ; Code: 50707523 ; Contributor System: PowerChart ; Last Updated: 09/11/2015 14:10 EDT ; Life Cycle Date: 09/11/2015 ; Life Cycle Status: Active ; Vocabulary: SNOMED CT Renal insufficiency (SNOMED CT :3163282975 ) Name of Problem: Renal insufficiency ; Recorder: AZALEA ALBRIGHT RN; Confirmation: Confirmed ; Classification: Patient Stated ; Code: 3191769328 ; Contributor System: PowerChart ; Last Updated: 01/11/2017 14:22 EST ; Life Cycle Date: 01/11/2017 ; Life Cycle Status: Active ; Vocabulary: SNOMED CT right carpal tunnel (SNOMED CT :26115435 ) Name of Problem: right carpal tunnel ; Recorder: LANNY BELLO RN; Confirmation: Confirmed ; Classification: Medical ; Code: 88683420 ; Contributor System: PowerChart ; Last Updated: 09/02/2017 10:07 EDT ; Life Cycle Date: 09/11/2015 ; Life Cycle Status: Active ; Vocabulary: SNOMED CT Right tennis elbow (SNOMED CT :7813492921 ) Name of Problem: Right tennis elbow ; Recorder: LANNY BELLO RN; Confirmation: Confirmed ; Classification: Medical ; Code: 6323201677 ; Contributor System: PowerChart ; Last Updated: 05/21/2019 14:33 EDT ; Life Cycle Status: Active ; Vocabulary: SNOMED CT ; Comments: 09/11/2015 14:11 - LANNY BELLO RN recent diagnosis RLS (restless legs syndrome) (SNOMED CT :37847532 ) Name of Problem: RLS (restless legs syndrome) ; Recorder: LANNY BELLO RN; Confirmation: Confirmed ; Classification: Medical ; Code: 85931738 ; Contributor System: [employer] ; Last Updated: 09/11/2015 14:33 EDT ; Life Cycle Date: 09/11/2015 ; Life Cycle Status: Active ; Vocabulary: SNOMED CT sleep apnea with Cpap (SNOMED CT :904553106 ) Name of Problem: sleep apnea with Cpap ; Recorder: LANNY BELLO RN; Confirmation: Confirmed ; Classification: Medical ; Code: 768596481 ; Contributor System: [employer] ; Last Updated: 08/12/2017 11:32 EDT ; Life Cycle Date: 09/11/2015 ; Life Cycle Status: Active ; Vocabulary: SNOMED CT Stress incontinence (SNOMED CT :712149362 ) Name of Problem: Stress incontinence ; Recorder: LANNY BELLO RN; Confirmation: Confirmed ; Classification: Medical ; Code: 890721703 ; Contributor System: [employer] ; Last Updated: 09/11/2015 14:12 EDT ; Life Cycle Date: 09/11/2015 ; Life Cycle Status: Active ; Vocabulary: SNOMED CT Diagnoses(Active) Medical screening exam Date: 07/01/2021 ; Diagnosis Type: Reason For Visit ; Confirmation: Complaint of ; Clinical Dx: Medical screening exam ; Classification: Medical ; Clinical Service: Emergency medicine ; Code: PNED ; Probability: 0 ; Diagnosis Code: [id number] ED Height and Weight Height Source : Stated Height Entry Format : [place] Height, Feet : 5 ft(Converted to: 152 cm, 60 Inch) Height, Inches : 6 Inch(Converted to: 0 ft 6 Inch, 15.24 cm) Clinical Height : 167.64 cm Weight Source, ED : Standing scale Weight Entry Format : [place] Weight, Pounds : 203 lb Clinical Dosing Weight : 92.27 kg Body Surface Area (BSA) : 2.01 m2 Body Mass Index : 32.8 kg/m2 (HI) Howell Body Weight (IBW) : 58.88 kg LANG WOOD RN - 07/01/2021 12:30 EDT Electronically signed by Maddie Meyers Conversion Building Illuminating Engineer Cerner at 03/07/2023 9:59 AM CDT documented in this encounter Plan of Treatment Not on file documented as of this encounter Visit Diagnoses Not on filedocumented in this encounter Care Teams Standard Machine Stitcher Relationship Specialty Start Date End Date Taina Lyles, ADRI [address] [place] [address] PCP - General Nurse Practitioner 06/15/23 documented as of this encounter
--- OUTSIDE RECORDS SUMMARY | 2025-08-17 15:24 | XMS_ITS | Encounter Summary ---
Author Organization [employer] ([place], [place], [place], [place]) Address [address] [place] [address] Care Team Providers Care Bowling Or Skating Front Desk Clerk Name Role Phone Taina Lyles ADRI Primary Care Provider [phone] Encounter Details Date Type Department Care Team (Late st Contact Info) Description 09/08/2020 Transcribed Document [facility] [place] Family Medicine [address] [place] [address] ProviderWilliam MD [address], [place] [id number] Social History Tobacco Use Types Packs/Day Years [...] Communication Barrier : None Primary Language : Spanish Any Spiritual/Cultural Needs or Requests : No [...] Rhythm : Regular Nail Bed Color : [place] Angelina Cuello RN - 09/08/2020 17:54 EDT Electronically signed by Lu[facility] Conversion Loss Prevention Consultant Cerner at 03/07/2023 9:46 AM CDT documented in this encounter Plan of Treatment Not on file documented as of this encounter Visit Diagnoses Not on filedocumented in this encounter Care Teams Bowling Or Skating Front Desk Clerk Relationship Specialty Start Date End Date Taina Lyles, SENIOR FIRMWARE ENGINEER [address] [place] [address] PCP - General Nurse Practitioner 06/15/23 documented as of this encounter
--- OUTSIDE RECORDS SUMMARY | 2025-08-17 15:24 | XMS_ITS | Encounter Summary ---
Author Organization [facility] Address [address] [place] [address] Care Team Providers Care Informatica Name Role Phone Lea Fernando Unavailable [phone] Rachel Ray TACTICAL/MOBILE WATCH OFFICER Unavailable [phone] Alvarez Zimmer MD Primary Care Provider [phone] Tamera Isabel DISTRICT GAUGER Unavailable UnavailAlina Bedolla RN Unavailable Unavailab Monique Che DISTRICT GAUGER Unavailable Unavailable Reason for Visit * Reason Onset Date Comments Med Refill 04/23/2025 Encounter Details Date Type Department Care Team (Late st Contact Info) Description 04/23/2025 Refill [facility] [address] [place] [address] Alvarez Zimmer MD [address] [place] [address] Altered mental status, unspecified altered [...] week 01/10/2025 How often do you attend [facility] or budd[facility] services? Patient unable to answer [...] Score 2 04/10/2025 [facility] [...] drink first t kennedy in the morning (EYE-SOLAR DEVELOPMENT ENGINEER) to steady your nerves or to get rid of a hangover? 0 10/22/2024 CAGE Questionnaire Score 0 024 Utilities Answer Date Recorded In the past 12 months has th e [employer], gas, oil, or water company threatened to [...] of zinc sulfate 220 mg sent to [facility] 03/01/2025. Refills remain available at the pharmacy. 90 day supply plus 1 refill of ciprofloxacin 500 mg sent to [facility] 03/01/2025. 1 refill remains available at the pharmacy. 30 day supply plus 3 refills of lactulose 10 gm/15 ml sent to [facility] 02/14/2025. Refills remain available at the pharmacy. documented in this encounter Plan of Treatment Upcoming Encounters Date Type Department Care Team (Late st Contact Info) Description 08/20/2025 9:30 AM EDT Clinical Support [facility] [place] [address] [place] [address] 08/20/2025 10:[address] [facility] [place] [address] [place] [address] [place] [address] 08/20/2025 11:00 AM EDT Office Visit [facility] [place] [address] [place] [address] Jude Duque MD [address] [place] [address] 08/22/2025 11:15 AM EDT Appointment [facility] [address] [place] [address] 08/22/2025 12:15 PM EDT Appointment [facility] [address] [place] [address] 08/26/2025 1:00 PM EDT [facility] [address] [place] [address] Miranda Hobson, TACTICAL/MOBILE WATCH OFFICER [address] [facility] [address] [place] [address] 08/29/2025 10:00 AM EDT Appointment [facility] [address] [place] [address] 08/29/2025 11:00 AM EDT Appointment [facility] [address] [place] [address] 09/05/2025 10:00 AM EDT Appointment [facility] [address] [place] [address] 09/05/2025 11:00 AM EDT Appointment [facility] [address] [place] [address] documented as of this encounter Visit Diagnoses [...] documented as of this encounter Care Teams Informatica Relationship Specialty Start Date End Date Alvarez Zimmer MD [address] [place] [address] PCP - General Family Medicine 12/07/24 Lea Fernando [address] [facility] [address] [place] [address] Brick Handler Endocrinology 08/29/24 Rachel Ray, TACTICAL/MOBILE WATCH OFFICER [address] [place] [address] Nurse Practitioner Gastroenterology 09/24/24 Tamera Isabel LPN VALUE-BASED TRANSFORMATION PROGRAM Licensed Practical Nurse 05/29/25 Alina Lovett, RN [facility] INTERVENTIONAL RADIOLOGY Registered Nurse 06/26/25 06/26/25 Monique Tapia LPN VALUE-[employer]ED [place] [address] TCM Nurse 07/10/25 08/09/25 documented as of this encounter
--- OUTSIDE RECORDS SUMMARY | 2025-08-17 15:24 | XMS_ITS | Encounter Summary ---
Author Organization [facility] Address [address] [place] [address] Care Team Providers Care Hat Model Name Role Phone Wilma Howard Ambar ROUSEN Primary Care Provider [phone] Lea Fernando Unavailable [phone] Rachel Ray DOOR MANAGER Unavailable [phone] Taina Lyles DOOR MANAGER Primary Care Provider [phone] Monique Tapia LPN Unavailable Unavailable Alvarez Zimmer MD Primary Care Provider [phone] Shaniqua Trevino STONE BANKER Unavailable Unavailable Tamera Isabel STONE BANKER Unavailable UnavailAlina Bedolla RN Unavailable Unavailab Monique Che LPN Unavailable Unavailable Encounter Details Date Type Department Care Team (Late st Contact Info) Description 01/18/2024 Orders Only External Location [address] [place] [id number] Provider, External Social History Tobacco Use Types [...] Support [facility] [place] [address] [place] [address] 08/20/2025 10:30 AM EDT Social Work [facility] [place] [address] [facility] [place] [address] [place] [address] 08/20/2025 11:00 AM EDT Office Visit [facility] [place] [address] [place] [address] Jude Duque MD [address] [facility] [address] [place] [address] 08/22/2025 11:15 AM EDT Appointment [facility] [address] [place] [address] 08/22/2025 12:15 PM EDT Appointment [facility] [address] [place] [address] 08/26/2025 1:00 PM EDT Office Visit [facility] [address] [place] [address] Miranda Hobson P, DOOR MANAGER [address] [place] [address] 08/29/2025 10:00 AM EDT Appointment [facility] [address] [place] [address] 08/29/2025 11:00 AM EDT Appointment [facility] [address] [place] [address] 09/05/2025 10:00 AM EDT Appointment [facility] [address] [place] [address] 09/05/2025 11:00 AM EDT Appointment [facility] [address] [place] [address] documented as of this encounter Procedures Procedure [...] as of this encounter Care Teams Hat Model Relationship Specialty Start Date End Date Wilma Howard APRN [address] [place] [address] [place] [address] PCP - General 04/03/21 09/30/24 Taina Lyles APRN [address] [place] [address] [place] [address] PCP - General 10/01/24 12/06/24 Alvarez Zimmer MD [facility] [place] [address] PCP - General Family Medicine 12/07/24 Lea Fernando [address] [place] [address] Information Resources Director Endocrinology 08/29/24 Rachel Ray APRN [address] [place] [address] Nurse Practitioner Gastroenterology 09/24/24 Monique Tapia LPN VALUE-[place] [address] TCM Nurse 11/28/24 12/28/24 Shaniqua Trevino LPN TCM Nurse 01/15/25 02/14/25 Tamera Isabel LPN VALUE-BASED TRANSFORMATION PROGRAM Licensed Practical Nurse 05/29/25 Alina Lovett, RN [facility] INTERVENTIONAL RADIOLOGY Registered Nurse 06/26/25 06/26/25 Monique Tapia LPN VALUE-[place] [address] TCM Nurse 07/10/25 08/09/25 documented as of this encounter
--- OUTSIDE RECORDS SUMMARY | 2025-08-17 15:24 | XMS_ITS | Encounter Summary ---
Author Organization [employer] ([place], [place], [place], [place]) Address [address] [place] [address] Care Team Providers Care Earth Moving Machine Operator Name Role Phone Taina Lyles APRN Primary Care Provider Encounter Details Date Type Department Care Team (Late st Contact Info) Description 01/24/2019 Transcribed Document [facility] [place] [facility] [place] [address] ProviderWilliam MD [address] [place] [address] Social History Tobacco Use Types Packs/Day Years Used Date Smoking Tobacco: Never Assessed Comments Unknown Sex and Gender Information Value Date Recorded Sex Assigned at Not on file Legal Sex Female 12:21 PM CDT Gender Identity Not on file Sexual Orientation Not on file documented as of this encounter Miscellaneous Notes * Cerner Conversion Note - William Reyes MD - 01/24/2019 7:43 PM CHEMIST [employer]OTE[employer] [address] [address] DISCHARGE SUMMARY PATIENT IDENTIFICATION: MONIKA ZIMMER (Female - 1960) ACCOUNT / UNIT NUMBER: [id number] / [id number] PRIMARY CARE PHYSICIAN: ERYN HOWARD APRN PATIENT LOCATION: [facility] 300-11 ADMIT DATE / TIME: 01/23/19 1051 [...] U-500 could be resumed on discharge. Continue [employer] diet. 3. Coronary artery disease/dyslipidemia, [...] Tylenol 650 q.4 h. as needed. 2. Neversink 10 mg 1-2 tabs q.4 h. as [...] on filedocumented in this encounter Care Teams Earth Moving Machine Operator Relationship Specialty Start Date End Date Taina Lyles, EPILEPSY PHYSICIAN [address] [place] [address] PCP - General Nurse Practitioner 06/15/23 documented as of this encounter
--- OUTSIDE RECORDS SUMMARY | 2025-08-17 15:24 | XMS_ITS | Encounter Summary ---
Author Organization [employer] ([place], [place], [place], [place]) Address [address] [place] [address] Care Team Providers Care Employee Representative Name Role Phone Taina Lyles APRN Primary Care Provider [phone] Encounter Details Date Type Department Care Team (Late st Contact Info) Description 01/23/2019 Transcribed Document [facility] [place] [facility] [place] [address] ProviderWilliam MD [address] [place] [address] Social History Tobacco Use Types Packs/Day Years Used Date Smoking Tobacco: Never Assessed Comments Unknown Sex and Gender Information Value Date Recorded Sex Assigned at Not on file Legal Sex Female 12:21 PM CDT Gender Identity Not on file Sexual Orientation Not on file documented as of this encounter Miscellaneous Notes * Cerner Conversion Note - William Reyes MD - 01/23/2019 2:56 PM SLIVER MACHINE OPERATOR [address] [address] OPERATIVE REPORT PATIENT IDENTIFICATION: MONIKA ZIMMER (Female - 1960) ACCOUNT / UNIT NUMBER: [id number] / [id number] PRIMARY CARE PHYSICIAN: ERYN PARKINSON APRN PATIENT LOCATION: [facility] 300-11 ADMIT DATE / TIME: 01/23/19 1051 DISCHARGE DATE / TIME: DICTATED: 01/23/19 0956 by VOLODYMYR VILLARREAL TRANSCRIBED: 01/23/19 1107 by PS IMPORTED: 01/23/19 1108 CC: ERYN PARKINSON APRN; FRANK LI; VOLODYMYR VILLARREAL\R\ [facility] Original DATE OF PROCEDURE: 01/23/2019 PREOPERATIVE [...] packing was placed. Dressings were applied and Balck catheter was inserted. Patient was taken to recovery room in stable condition. Needle and sponge count correct x2. EBL 50-100 mL. Dictated By: VOLODYMYR VILLARREAL E-Signed By: GWENDOLYN 0956 [id number] [\R\ rep ct labl] [\R\ rep ct ivnm] Electronically signed by Luigi [facility] Conversion Ux Design Manager Cerner at 02/21/2023 1:44 PM CDT documented in this encounter Plan of Treatment Not on file documented as of this encounter Visit Diagnoses Not on filedocumented in this encounter Care Teams Employee Representative Relationship Specialty Start Date End Date Taina Lyles APRN [address] [place] [address] PCP - General Nurse Practitioner 06/15/23 documented as of this encounter
--- OUTSIDE RECORDS SUMMARY | 2025-08-17 15:24 | XMS_ITS | Encounter Summary ---
Author Organization [employer] ([place], [place], [place], [place]) Address [address] [place] [address] Care Team Providers Care Sharepoint Consultant Name Role Phone Taina Lyles CONCRETE FLOATER Primary Care Provider [phone] Encounter Details Date Type Department Care Team (Late st Contact Info) Description 07/01/[address] [facility] [place] Family Medicine [address] [place] [address] ProviderWilliam MD [address] [place], [place] [address] Social History Tobacco Use Types Packs/Day Years [...] Communication Barrier : None Primary Language : Japanese Any Spiritual/Cultural Needs or Requests : No Currently in Unsafe Situation : No Medina Lai RN - 07/01/2021 17:32 EDT Social Habits Smoking Status : Never (less than 100 in lifetime; none in last 30 days) Smokeless Tobacco Status : Never Desires Tobacco Cessation Calc : 0 Medina Lia RN - 07/01/2021 17:32 EDT Social History [...] on filedocumented in this encounter Care Teams Sharepoint Consultant Relationship Specialty Start Date End Date Taina Lyles, CONCRETE FLOATER [address] [place] [address] PCP - General Nurse Practitioner 06/15/23 documented as of this encounter
--- OUTSIDE RECORDS SUMMARY | 2025-08-17 15:24 | XMS_ITS | Encounter Summary ---
Author Organization [employer] ([place], [place], [place], [place]) Address [address] [place] [address] Care Team Providers Care Founder And President Name Role Phone Taina Lyles APRN Primary Care Provider [phone] Encounter Details Date Type Department Care Team (Late st Contact Info) Description 10/05/2019 Transcribed Document [facility] [place] Family Medicine [facility] [place] [address] ProviderWilliam MD [address] [place] [address] Social History Tobacco Use Types Packs/Day Years Used Date Smoking Tobacco: Never Assessed Comments Unknown Sex and Gender Information Value Date Recorded Sex Assigned at Not on file Legal Sex Female 12:21 PM CDT Gender Identity Not on file Sexual Orientation Not on file documented as of this encounter Miscellaneous Notes * Cerner Conversion Note - William Reyes MD - 10/05/2019 3:36 PM TRAFFIC REPRESENTATIVE [address] [address] OPERATIVE REPORT PATIENT IDENTIFICATION: MONIKA ZIMMER (Female - 1960) ACCOUNT / UNIT NUMBER: [id number] / [id number] PRIMARY CARE PHYSICIAN: ERYN PARKINSON APRN [place] [facility] [place] DATE / TIME: 10/05/19 0723 DISCHARGE [...] for flow rate and bladder ultrasound PVR. /[id number] Dictated By: VOLODYMYR VILLARREAL E-Signed By: ALDO 1036 [id number] [\R\ rep ct labl] [\R\ rep ct ivnm] Medical Disclaimer: This report is to be considered preliminary until reviewed and signed. Electronically signed by Maddie Meyers Conversion Paper Cup Handle Machine Operator Cerner at 02/21/2023 1:44 PM CDT documented in this encounter Plan of Treatment Not on file documented as of this encounter Visit Diagnoses Not on filedocumented in this encounter Care Teams Founder And President Relationship Specialty Start Date End Date Taina Lyles, ADRI [address] [place] [address] PCP - General Nurse Practitioner 06/15/23 documented as of this encounter
--- OUTSIDE RECORDS SUMMARY | 2025-08-17 15:24 | XMS_ITS | Encounter Summary ---
Author Organization [employer] ([place], [place], [place], [place]) Address [address] [place] [address] Care Team Providers Care Wire Annealer Name Role Phone Taina Lyles HOSPICE NURSE PRACTITIONER Primary Care Provider [phone] Encounter Details Date Type Department Care Team (Late st Contact Info) Description 07/01/2021 Transcribed Document [facility] [place] [facility] [place] [address] ProviderWilliam MD [address] [place], [place] [address] Social History Tobacco Use Types Packs/Day Years [...] EDT Height Source Stated Height Entry Format [place] Height/Length, VINCENTIAN (ft) 5 ft Height/Length VINCENTIAN 6 Inch CLINICALHEIGHT 167.64 cm [place] Body Weight 58.88 kg Weight Source, ED Standing scale Weight Entry Format [place] Weight French lb 203 lb CLINICALWEIGHT 92.27 kg Body [...] % LOW Lymph # 1.03 K/uL LOW [place] % 8.2 % [place] # 0.66 K/uL Eos % 6.1 % [...] filedocumented in this encounter Care Teams Wire Annealer Relationship Specialty Start Date End Date Taina Lyles, ADRI [address] [place] [address] PCP - General Nurse Practitioner 06/15/23 documented as of this encounter
--- OUTSIDE RECORDS SUMMARY | 2025-08-17 15:24 | XMS_ITS | Encounter Summary ---
Author Organization [employer] ([place], [place], [place], [place]) Address [address] [place] [address] Care Team Providers Care Residential Gas Heat Technician Name Role Phone Taina Lyles ADRI Primary Care Provider [phone] Encounter Details Date Type Department Care Team (Late st Contact Info) Description 07/02/2021 Transcribed Document [facility] [place] [facility] [address] [place] [address] ProviderWilliam MD [address] [place], [place] [address] Social History Tobacco Use Types Packs/Day Years [...] EDT Electronically signed by Maddie Meyers Conversion Medical/Surgery Registered Nurse Certhierry at 03/07/2023 9:35 AM CDT documented in this encounter Plan of Treatment Not on file documented as of this encounter Visit Diagnoses Not on filedocumented in this encounter Care Teams Residential Gas Heat Technician Relationship Specialty Start Date End Date Taina Lyles, WINDOWS SYSTEMS ARCHITECT [address] [place] [address] PCP - General Nurse Practitioner 06/15/23 documented as of this encounter
--- OUTSIDE RECORDS SUMMARY | 2025-08-17 15:24 | XMS_ITS | Encounter Summary ---
Author Organization Healthcare Address [address] [place] [address] Care Team Providers Care Fingernail Technician Name Role Phone NaseemScar Lea Clarke Unavailable [phone] Rachel Ray OFFICE MACHINES WIRER Unavailable [phone] Taian Lyles OFFICE MACHINES WIRER Primary Care Provider [phone] Monique Tapia COLD STRIP FEEDER Unavailable Unavailable Alvarez Zimmer MD Primary Care Provider [phone] Shaniqua Trevino COLD STRIP FEEDER Unavailable Unavailable Tamera Isabel COLD STRIP FEEDER Unavailable UnavailAlina Bedolla RN Unavailable Unavailab Monique Che LPN Unavailable Unavailable Encounter Details Date Type Department Care Team (Late st Contact Info) Description 10/24/2024 Ophth Exam [facility] [address] [place] [address] Serene Barragan MD [address] [place] [address] Social History Tobacco Use Types [...] and Family Not on file 10/16/2024 Attends [employer] Not on file 10/16 Active Member [...] a skilled nursing (including now)? Yes 08/29/2024 Housing Stability Vital [...] in a skilled nursing (including now)? No 10/16/2024 CAGE ASSESSMENT Answer [...] drink first t kennedy in the morning (EYE-HYDRAMATIC SPECIALIST) to steady your nerves or to [...] Clinical Support [facility] [place] [address] [facility] [address] [place] [address] 08/20/2025 10:[address] [facility] [place] [address] [facility] [place] [address] Deysi Ortega [place], [place] [address] 08/20/2025 11:00 AM EDT Office Visit [facility] [place] [address] [facility] [address] [place] [address] Jude Duque MD [address] [facility] [address] [place] [address] 08/22/2025 11:15 AM EDT Appointment [facility] [address] [place] [address] 08/22/2025 12:15 PM EDT Appointment [facility] [address] [place] [address] 08/26/2025 1:00 PM EDT Office Visit [facility] Endocrinology [address] [place] [address] Miranda Hobson P, OFFICE MACHINES WIRER [address] [facility] [address] [place] [address] 08/29/2025 10:00 AM EDT Appointment [facility] [address] [place] [address] 08/29/2025 11:00 AM EDT Appointment [facility] [address] [place] [address] 09/05/2025 10:00 AM EDT Appointment [facility] [address] [place] [address] 09/05/2025 11:00 AM EDT Appointment [facility] [address] [place] [address] documented as of this encounter Visit Diagnoses [...] documented as of this encounter Care Teams Fingernail Technician Relationship Specialty Start Date End Date Taina Lyles, OFFICE MACHINES WIRER [address] [place] [address] [place] [address] PCP - General 10/01/24 12/06/24 Alvarez Zimmer MD [address] [place] [address] PCP - General Family Medicine 12/07/24 Lea Fernando [address] [facility] [address] [place] [address] Processing Technologist Endocrinology 08/29/24 Rachel Ray, OFFICE MACHINES WIRER [address] [facility] [address] [place] [address] Nurse Practitioner Gastroenterology 09/24/24 Monique Tapia LPN VALUE-[place]ED [place] [address] TCM Nurse 11/28/24 12/28/24 Shaniqua Trevino LPN TCM Nurse 01/15/25 02/14/25 Tamera Isabel LPN VALUE-BASED TRANSFORMATION PROGRAM Licensed Practical Nurse 05/29/25 Alina Lovett, RN CH-VASCULAR & INTERVENTIONAL RADIOLOGY Registered Nurse 06/26/25 06/26/25 Monique Tapia LPN VALUE-[place] [address] TCM Nurse 07/10/25 08/09/25 documented as of this encounter
--- OUTSIDE RECORDS SUMMARY | 2025-08-17 15:24 | XMS_ITS | Encounter Summary ---
Author Organization [employer] ([place], [place], [place], [place]) Address [address] [place] [address] Care Team Providers Care Certified Medical Coder Name Role Phone Taina Lyles ADRI Primary Care Provider [phone] Encounter Details Date Type Department Care Team (Late st Contact Info) Description 07/01/2021 Transcribed Document [facility] [place] [address] [place] [address] ProviderWilliam MD [address] [place], [place] [address] Social History Tobacco Use Types Packs/Day Years [...] Reyes MD - 07/01/2021 12:13 PM CDT [place] Suicide Severity Rating Scale (C-SSRS) Entered On: 07/01/2021 17:31 EDT Performed On: 07/01/2021 17:31 EDT by Medina Lai RN [place] Suicide Severity Rating Scale (C-SSRS) CSSRS Past Month Wish to be : No CSSRS Past Month Suicidal Thoughts : No CSSRS Lifetime Suicide Behavior : No Suicide Severity Rating Score : 0 Suicide Severity Rating : No Additional Care Required at this time Medina Lai RN - 07/01/2021 17:31 EDT Electronically signed by Maddie Meyers Conversion Laboratory Technical Specialist Cerner at 03/07/2023 10:01 AM CDT documented in this encounter Plan of Treatment Not on file documented as of this encounter Visit Diagnoses Not on filedocumented in this encounter Care Teams Certified Medical Coder Relationship Specialty Start Date End Date Taina Lyles, CORPORATE TRAFFIC MANAGER [address] [place] [address] PCP - General Nurse Practitioner 06/15/23 documented as of this encounter
--- OUTSIDE RECORDS SUMMARY | 2025-08-17 15:24 | XMS_ITS | Encounter Summary ---
Author Organization [employer] ([place], [place], [place], [place]) Address [address] [place] [address] Care Team Providers Care Iron Caster Name Role Phone Taina Lyles APRN Primary Care Provider [phone] Encounter Details Date Type Department Care Team (Late st Contact Info) Description 09/09/[address] [facility] [place] Family Medicine [address] [place] [address] ProviderWilliam MD [address] [place], [place] [id number] Social History Tobacco Use Types Packs/Day Years [...] Richelle Rust Rn - 09/09/2020 7:27 EDT Electronically signed by Maddie Meyers Conversion Regional Construction Manager Cerner at 03/07/2023 9:55 AM CDT documented in this encounter Plan of Treatment Not on file documented as of this encounter Visit Diagnoses Not on filedocumented in this encounter Care Teams Iron Caster Relationship Specialty Start Date End Date Zetter, Taina J, NETWORK SECURITY ARCHITECT [address] [place] [address] PCP - General Nurse Practitioner 06/15/23 documented as of this encounter
--- OUTSIDE RECORDS SUMMARY | 2025-08-17 15:24 | XMS_ITS | Encounter Summary ---
Author Organization [employer] ([place], [place], [place], [place]) Address [address] [place] [address] Care Team Providers Care Apartment House Manager Name Role Phone Taina Lyles APRN Primary Care Provider [phone] Encounter Details Date Type Department Care Team (Late st Contact Info) Description 09/08/[address] [facility] [place] Family Medicine [address] [place] [address] ProviderWilliam MD [address] [place], [place] [address] Social History Tobacco Use Types Packs/Day Years [...] & time 09/08/2020 15:30:00, Voice recognition / data integration architect technology used for some documentation in [...] Tab, Oral, QAM, 30 Tab, 0 Refill(s) [place] 7.5 mg-325 mg oral tablet: 1 Tab, [...] EDT Height Source Estimated Height Entry Format [place] Height/Length, CAMEROONIAN (ft) 5 ft Height/Length [place] 5 Inch CLINICALHEIGHT 165.1 cm [place] Body Weight 56.59 kg Weight Source, ED Critical estimated dosing weight Weight Entry Format [place] Weight [place] lb 190 lb CLINICALWEIGHT 86.36 kg Body [...] Orders Ordered Blood Pressure: Cardiac Monitoring: ED grain elevator agent: EKG: Place in Observation: Pulse Oximetry Continuous [...] % 41.0 % Lymph # 3.73 K/uL [place] % 9.5 % [place] # 0.86 K/uL HI Eos % 2.9 [...] blood pressure), Interventions hemodynamic management, Case review biomedical engineering director. Performed by: self. Heart Score Heart History: [...] Medical Calls-Consults - 09/08/2020 17:13:00 , MADI GLAAVIZ MD-CAR, Cardiology, phone call, recommends We will [...] on filedocumented in this encounter Care Teams Apartment House Manager Relationship Specialty Start Date End Date Taina Lyles, ADRI [address] [place] [address] PCP - General Nurse Practitioner 06/15/23 documented as of this encounter
--- OUTSIDE RECORDS SUMMARY | 2025-08-17 15:24 | XMS_ITS | Encounter Summary ---
Author Organization Healthcare Address [address] [place] [address] Care Team Providers Care Surgical Territory Manager Name Role Phone Lea Fernando Unavailable [phone] Rcahel Ray VOLUNTEER FIREFIGHTER Unavailable [phone] Alvarez Zimmer MD Primary Care Provider [phone] Tamera Isabel LPN Unavailable Unavailabl Alina Jennings RN Unavailable Unavailab le Encounter Details Date Type Department Care Team (Late st Contact Info) Description 06/23/2025 Orders Only External Location [address] [place] [address] Kandice Maldonado, VOLUNTEER FIREFIGHTER [address] [place] [address] Social History Tobacco Use Types [...] o r organizations such as taoist groups, [employer], [employer] or athletic groups, or school groups? Patient [...] week 05/29/2025 How often do you attend [facility] ch or yarsani services? Never 05/29/2025 Do you belong to any clubs o r organizations such as taoist groups, unions, edulioternal or athletic groups, or school groups? No [...] more drinks on one occasion? Never 06/25/2025 [facility] - [...] drink first t kennedy in the morning (EYE-CATALYTIC CASE OPERATOR) to steady your nerves or to get rid of a hangover? 0 06/25/2025 CAGE Questionnaire Score 0 025 Utilities Answer Date Recorded In the past 12 months has th Mom Trusted electric, gas, oil, or water company threatened [...] Support [facility] [place] [address] [facility] [address] [place] [address] 08/20/2025 10:30 AM EDT Social Work [facility] [place] [address] [facility] [address] [place] [address] [place] [address] 08/20/2025 11:00 AM EDT Office Visit [facility] [place] [address] [facility] [address] [place] [address] Jude Duque MD [address] [place] [address] 08/22/2025 11:15 AM EDT Appointment [facility] Inter[facility]iology [address] [place] [address] 08/22/2025 12:15 PM EDT Appointment [facility] Inter[facility]iology [address] [place] [address] 08/26/2025 1:00 PM EDT Office Visit [facility] [address] [place] [address] Miranda Hobson P, VOLUNTEER FIREFIGHTER [address] [place] [address] 08/29/2025 10:00 AM EDT Appointment [facility] [address] [place] [address] 08/29/2025 11:00 AM EDT Appointment [facility] [address] [place] [address] 09/05/2025 10:00 AM EDT Appointment [facility] [address] [place] [address] 09/05/2025 11:00 AM EDT Appointment [facility] Inter[facility] [address] [place] [address] documented as of this encounter Procedures Procedure [...] documented as of this encounter Care Teams Surgical Territory Manager Relationship Specialty Start Date End Date Alvarez Zimmer MD [address] [place] [address] PCP - General Family Medicine 12/07/24 Lea Fernando [address] [place] [address] Consulting Sales Executive Endocrinology 08/29/24 Rachel Ray APRN [address] [facility] [address] [place] [address] Nurse Practitioner Gastroenterology 09/24/24 Tamera Isabel LPN VALUE-BASED TRANSFORMATION PROGRAM Licensed Practical Nurse 05/29/25 Alina Lovett, RN CH-VASCULAR & INTERVENTIONAL RADIOLOGY Registered Nurse 06/26/25 06/26/25 documented as of this encounter
--- OUTSIDE RECORDS SUMMARY | 2025-08-17 15:24 | XMS_ITS | Encounter Summary ---
Author Organization [employer] ([place], [place], [place], [place]) Address [address] [place] [address] Care Team Providers Care Director Toxicology Name Role Phone Taina Lyles APRN Primary Care Provider Encounter Details Date Type Department Care Team (Late st Contact Info) Description 09/09/2020 Transcribed Document [facility] [place] Family Medicine [address] [place] [address] ProviderWilliam MD [address] [place] [address] Social History Tobacco Use Types Packs/Day Years [...] 12:00 PM CDT Electronically signed by Luigi [facility] Conversion Zipper Setter Cerner at 03/07/2023 9:57 AM CDT documented in this encounter Plan of Treatment Not on file documented as of this encounter Visit Diagnoses Not on filedocumented in this encounter Care Teams Director Toxicology Relationship Specialty Start Date End Date Taina Lyles APRN [address] [place], [place] [address], [place] [address] PCP - General Nurse Practitioner 06/15/23 documented as of this encounter
--- OUTSIDE RECORDS SUMMARY | 2025-08-17 15:24 | XMS_ITS | Encounter Summary ---
Author Organization [employer] ([place], [place], [place], [place]) Address [address] [place] [address] Care Team Providers Care Visual Coordinator Name Role Phone Taina Lyles ADRI Primary Care Provider [phone] Encounter Details Date Type Department Care Team (Late st Contact Info) Description 09/09/2020 Transcribed Document [facility] [place] [address] [place] [address] ProviderWilliam MD [address] [place], [place] [address] Social History Tobacco Use Types Packs/Day Years [...] on filedocumented in this encounter Care Teams Visual Coordinator Relationship Specialty Start Date End Date Taina Lyles, PLANER OFF BEARER [address] [place] [address] PCP - General Nurse Practitioner 06/15/23 documented as of this encounter
--- OUTSIDE RECORDS SUMMARY | 2025-08-17 15:24 | XMS_ITS | Encounter Summary ---
Author Organization [employer] ([place], [place], [place], [place]) Address [address] [place] [address] Care Team Providers Care Botanical Technical Officer Name Role Phone Taina Lyles DAT INSTRUCTOR Primary Care Provider [phone] Encounter Details Date Type Department Care Team (Late st Contact Info) Description 09/09/2020 Transcribed Document [facility] [place] [address] [place] [address] ProviderWilliam MD [address] [place] [address] Social History Tobacco Use Types [...] Reyes MD - 09/09/2020 3:03 PM CDT [place] [id number] MONIKA ZIMMER :1960 Visit Time:09/08/2020 Your Visit [...] 1 week Where: [address] [facility] [address] [place] [address]- Business (1) Follow Up with ERYN PARKINSON When Within 2 to 3 days Where: [address] [place] [address] [facility] (1) Allergies No Known Allergies Immunizations This Visit No Immunizations Found Medications What How Much When Instructions Next Dose isosorbide mononitrate (isosorbide mononitrate 60 mg oral tablet, extended release) 1 Tablet(s) Oral Every Morning Duration: 30 Day(s) Pickup at [facility] albuterol (Ventolin HFA 90 mcg/ [...] oral tablet) Oral At Bedtime Pharmacy Information [facility]: [address] [facility] [place] [phone] The home medications listed are only as [...] range between ( 1.0 and 7.0 ) Giles #: 0.94 K/uL -- Normal range between ( 0.24 and 0.82 ) Eos #: 0.32 K/uL -- Normal range between ( 0.04 and 0.54 ) Giles %: 7.6 % -- Normal range between [...] ) Urine Bilirubin Dipstick: Negative Urine Specific Malin: *1.026 -- Normal range between ( 1.005 and 1.030 ) Microbiology 09/08/2020 8:19 PM Novel Coronavirus 2019: Negative Urine Chemistry 09/08/2020 8:19 PM Osmolality Urine: 662 mOsm/kg -- Normal range between ( 250 and 900 ) Sodium Ur [place]: 127 mMole/Liter General Chemistry 09/09/2020 12:10 PM [...] lot of fat or sugar. ??? Take txrr-wjg-diqfwed and prescription medicines only as told by [...] 11/07/2006 Document Revised: 10/20/2018 Document Reviewed: 12/31/2016 [employer] Patient Education ?? 2020 [employer] Angina Angina is extreme discomfort in [...] these instructions at home: Medicines ??? Take hpaf-epe-knvytsc and prescription medicines only as told by [...] 11/07/2006 Document Revised: 06/25/2019 Document Reviewed: 06/25/2019 [employer] Patient Education ?? 2020 [employer] Emergency Awareness and Preventative Care STROKE [...] Assistance with quitting is available by contacting 5-407-GEOA-NOW. This is a free resource providing counseling, [...] was given the opportunity to ask questions. Patient/Ready Mix Truck Driver Name: Patient/Ready Mix Truck Driver Signature: Relationship to Patient: Clinician/Hospital Ready Mix Truck Driver Signature: Please Provide a Telephone Number Where You Can Be Reached: Is it Permissible To Leave a Message? Date: documented in this encounter Plan of Treatment Not on file documented as of this encounter Visit Diagnoses Not on filedocumented in this encounter Care Teams Botanical Technical Officer Relationship Specialty Start Date End Date Taina Lyles, DAT INSTRUCTOR [address] [place] [address] PCP - General Nurse Practitioner 06/15/23 documented as of this encounter
--- OUTSIDE RECORDS SUMMARY | 2025-08-17 15:24 | XMS_ITS | Encounter Summary ---
Author Organization Healthcare Address [address] [place] [address] Care Team Providers Care County Bailiff Name Role Phone Wilma Howard Ambar ROUSEN Primary Care Provider [phone] Lea Fernando Unavailable [phone] Rachel Ray CONVERTER SKIMMER Unavailable [phone] Taina Lyles CONVERTER SKIMMER Primary Care Provider [phone] Monique Tapia LPN Unavailable Unavailable Alvarez Zimmer MD Primary Care Provider [phone] Shaniqua Trevino APPLICATION HELPER Unavailable Unavailable Tamera Isabel APPLICATION HELPER Unavailable UnavailAlina Bedolla RN Unavailable Unavailab Monique Che LPN Unavailable Unavailable Encounter Details Date Type Department Care Team (Late st Contact Info) Description 07/14/2024 Orders Only External Location [address] [place] [address] Provider, External Social History Tobacco Use Types [...] AM EDT Clinical Support [facility] [place] [address] [place] [address] 08/20/2025 10:30 AM EDT Social Work [facility] [place] [address] [facility] [place] [address] [place] [address] 08/20/2025 11:00 AM EDT Office Visit [facility] [place] [address] [place] [address] Jude Duque MD [address] [facility] [address] [place] [address] 08/22/2025 11:15 AM EDT Appointment [facility] Inter[facility] Radiology [address] [place] [address] 08/22/2025 12:15 PM EDT Appointment [facility] Inter[facility] Radiology [address] [place] [address] 08/26/2025 1:00 PM EDT Office Visit [facility] Endocrinology [address] [place] [address] Miranda Hobson P, CONVERTER SKIMMER [address] [place] [address] 08/29/2025 10:00 AM EDT Appointment [facility] [address] [place] [address] 08/29/2025 11:00 AM EDT Appointment [facility] [address] [place] [address] 09/05/2025 10:00 AM EDT Appointment [facility] [address] [place] [address] 09/05/2025 11:00 AM EDT Appointment [facility] [address] [place] [address] documented as of this encounter Procedures Procedure [...] documented as of this encounter Care Teams County Bailiff Relationship Specialty Start Date End Date Wilma Howard APRN [address] [place] [address] [place] [address] PCP - General 04/03/21 09/30/24 Taina Lyles APRN [address] [place] [address] [place] [address] PCP - General 10/01/24 12/06/24 Alvarez Zimmer MD [facility] [place] [address] PCP - General Family Medicine 12/07/24 Lea Fernando [address] [place] [address] Packaging Materials Inspector Endocrinology 08/29/24 Rachel Ray, ADRI [address] [place] [address] Nurse Practitioner Gastroenterology 09/24/24 Monique Tapia LPN VALUE-BASED [place] [address] TCM Nurse 11/28/24 12/28/24 Shaniqua Trevino LPN TCM Nurse 01/15/25 02/14/25 Tamera Isabel LPN VALUE-BASED TRANSFORMATION PROGRAM Licensed Practical Nurse 05/29/25 Alina Lovett, RN CH-VASCULAR & INTERVENTIONAL RADIOLOGY Registered Nurse 06/26/25 06/26/25 Monique Tapia LPN VALUE-BASED [place] [address] TCM Nurse 07/10/25 08/09/25 documented as of this encounter
--- OUTSIDE RECORDS SUMMARY | 2025-08-17 15:24 | XMS_ITS | Encounter Summary ---
Author Organization Healthcare Address [address] [place] [address] Care Team Providers Care Desk Attendant Name Role Phone Wilma Howard Ambar ROUSEN Primary Care Provider [phone] Lea Fernando Unavailable [phone] Rachel Ray TOOL STORAGE ATTENDANT Unavailable [phone] Taina Lyles TOOL STORAGE ATTENDANT Primary Care Provider [phone] Monique Tapia LPN Unavailable Unavailable Alvarez Zimmer MD Primary Care Provider [phone] Shaniqua Trevino FINANCIAL RECORDING CLERK Unavailable Unavailable Tamera Isabel FINANCIAL RECORDING CLERK Unavailable UnavailAlina Bedolla RN Unavailable Unavailab Monique Che LPN Unavailable Unavailable Encounter Details Date Type Department Care Team (Late st Contact Info) Description 07/17/2024 Orders Only External Location [address] [place] [address] Provider, External Social History Tobacco Use Types [...] AM EDT Clinical Support [facility] [address] [place] [address] 08/20/2025 10:30 AM EDT Social Work [facility] [address] [facility] [place] [address] [place] [address] 08/20/2025 11:00 AM EDT Office Visit [facility] [address] [place] [address] Jude Duque MD [address] [facility] [address] [place] [address] 08/22/2025 11:15 AM EDT Appointment [facility] [address] [place] [address] 08/22/2025 12:15 PM EDT Appointment [facility] [address] [place] [address] 08/26/2025 1:00 PM EDT Office Visit [facility] Endocrinology [address] [place] [address] Miranda Hobson P, TOOL STORAGE ATTENDANT [address] [place] [address] 08/29/2025 10:00 AM EDT Appointment [facility] [address] [place] [address] 08/29/2025 11:00 AM EDT Appointment [facility] [address] [place] [address] 09/05/2025 10:00 AM EDT Appointment [facility] [address] [place] [address] 09/05/2025 11:00 AM EDT Appointment [facility] [address] [place] [address] documented as of this encounter Procedures Procedure [...] documented as of this encounter Care Teams Desk Attendant Relationship Specialty Start Date End Date Wilma Howard APRN [address] [place] [address] [place] [address] PCP - General 04/03/21 09/30/24 Taina Lyles APRN [address] [place] [address] [place] [address] PCP - General 10/01/24 12/06/24 Alvarez Zimmer MD [facility] [place] [address] PCP - General Family Medicine 12/07/24 Lea Fernando [address] [place] [address] Freight Air Brake Fitter Endocrinology 08/29/24 Rachel Ray, TOOL STORAGE ATTENDANT [address] [place] [address] Nurse Practitioner Gastroenterology 09/24/24 Monique Tapia LPN VALUE-BASED [place] [address] TCM Nurse 11/28/24 12/28/24 Shaniqua Trevino LPN TCM Nurse 01/15/25 02/14/25 Tamera Isabel LPN VALUE-BASED TRANSFORMATION PROGRAM Licensed Practical Nurse 05/29/25 Alina Lovett, RN CH-VASCULAR & INTERVENTIONAL RADIOLOGY Registered Nurse 06/26/25 06/26/25 Monique Tapia LPN VALUE-BASED [place] [address] TCM Nurse 07/10/25 08/09/25 documented as of this encounter
--- OUTSIDE RECORDS SUMMARY | 2025-08-17 15:24 | XMS_ITS | Encounter Summary ---
Author Organization [facility] Address [address] [place] [address] Care Team Providers Care Consumer Science Teacher Name Role Phone Lea Fernando Unavailable [phone] Rachel Ray TERRA COTTA ROOFER Unavailable [phone] Alvarez Zimmer MD Primary Care Provider [phone] Tamera Isabel FARM IMPLEMENT MECHANIC Unavailable UnavailAlina Bedolla RN Unavailable Unavailab Monique Che FARM IMPLEMENT MECHANIC Unavailable Unavailable Reason for Visit * Reason Onset Date Comments Med Refill 04/19/2025 Encounter Details Date Type Department Care Team (Late st Contact Info) Description 04/19/2025 Refill [facility] [address] [place] [address] Alvarez Zimmer MD [address] [place] [address] Social History Tobacco Use Types [...] How often do you attend [facility] or yazidism services? Patient unable to [...] Recorded Patient Health Questionnaire-2 Score 2 04/10/2025 [facility] [...] drink first t kennedy in the morning (EYE-ASSISTED SALES REPRESENTATIVE) to steady your nerves or to get rid of a hangover? 0 10/22/2024 CAGE Questionnaire Score 0 024 Utilities Answer Date Recorded In the past 12 months has e [employer], gas, oil, or water [employer] threatened to shut off services in your [...] Support [facility] [place] [address] [place] [address] 08/20/2025 10:30 AM EDT Social Work [facility] [address] [place] [address] [place] [address] 08/20/2025 11:00 AM EDT Office Visit [facility] [address] [place] [address] Jude Duque MD [address] [place] [address] 08/22/2025 11:15 AM EDT Appointment [facility] Radiology [address] [place] [address] 08/22/2025 12:15 PM EDT Appointment [facility] Radiology [address] [place] [address] 08/26/2025 1:00 PM EDT Office Visit [facility] Endocrinology [address] [place] [address] Miranda Hobson, TERRA COTTA ROOFER [address] [facility] [address] [place] [address] 08/29/2025 10:00 AM EDT Appointment [facility] [address] [place] [address] 08/29/2025 11:00 AM EDT Appointment [facility] [address] [place] [address] 09/05/2025 10:00 AM EDT Appointment [facility] [address] [place] [address] 09/05/2025 11:00 AM EDT Appointment [facility] [address] [place] [address] documented as of this encounter Visit Diagnoses [...] documented as of this encounter Care Teams Consumer Science Teacher Relationship Specialty Start Date End Date Alvarez Zimmer MD [address] [place] [address] PCP - General Family Medicine 12/07/24 Lea Fernando [address] [facility] [address] [place] [address] Feeder/Folder Endocrinology 08/29/24 Rachel Ray APRN [address] [facility] [address] [place] [address] Nurse Practitioner Gastroenterology 09/24/24 Tamera Isabel LPN VALUE-BASED TRANSFORMATION PROGRAM Licensed Practical Nurse 05/29/25 Alina Lovett, RN CH-VASCULAR & INTERVENTIONAL RADIOLOGY Registered Nurse 06/26/25 06/26/25 Monique Tapia LPN VALUE-[place] [address] TCM Nurse 07/10/25 08/09/25 documented as of this encounter
--- OUTSIDE RECORDS SUMMARY | 2025-08-17 15:24 | XMS_ITS | Encounter Summary ---
Author Organization [employer] ([place], [place], [place], [place]) Address [address] [place] [address] Care Team Providers Care Circulation Assistant Name Role Phone Taina Lyles ADRI Primary Care Provider [phone] Encounter Details Date Type Department Care Team (Late st Contact Info) Description 09/11/2020 Transcribed Document [facility] Family Medicine [address] [place] [address] ProviderWilliam MD [address] [place], [place] [id number] Social History Tobacco Use Types Packs/Day Years [...] on filedocumented in this encounter Care Teams Circulation Assistant Relationship Specialty Start Date End Date Taina Lyles, BACTERIOLOGIST FISHERY [address] [place] [address] PCP - General Nurse Practitioner 06/15/23 documented as of this encounter
--- OUTSIDE RECORDS SUMMARY | 2025-08-17 15:24 | XMS_ITS | Encounter Summary ---
Author Organization [employer] ([place], [place], [place], [place]) Address [address] [place] [address] Care Team Providers Care Cyanide Furnace Operator Name Role Phone Taina Lyles Carmel RUSH Primary Care Provider [phone] Encounter Details Date Type Department Care Team (Late st Contact Info) Description 09/08/2020 Transcribed Document [facility] [place] [address] [place] [address] ProviderWilliam MD [address] [place] [id number] Social History Tobacco Use Types Packs/Day Years [...] Reyes MD - 09/08/2020 3:25 PM CDT [place] Suicide Severity Rating Scale (C-SSRS) Entered On: 09/08/2020 16:35 EDT Performed On: 09/08/2020 16:31 EDT by Angelina Cuello RN [place] Suicide Severity Rating Scale (C-SSRS) CSSRS Past [...] on filedocumented in this encounter Care Teams Cyanide Furnace Operator Relationship Specialty Start Date End Date Taina Lyles, RESOLUTION SPECIALIST [address] [place] [address] PCP - General Nurse Practitioner 06/15/23 documented as of this encounter
--- OUTSIDE RECORDS SUMMARY | 2025-08-17 15:24 | XMS_ITS | Encounter Summary ---
Author Organization Healthcare Address [address] [place] [address] Care Team Providers Care Metal Window Screen Assembler Name Role Phone Lea Fernando Unavailable [phone] Rachel Ray WASTEWATER TREATMENT PLANT SUPERVISOR Unavailable [phone] Alvarez Zimmer MD Primary Care Provider [phone] Tamera Isabel CUSTOMER SERVICE ADVISOR Unavailable UnavailAlina Bedolla RN Unavailable Unavailab le Encounter Details Date Type Department Care Team (Late st Contact Info) Description 05/08/2025 Results Follow-Up [facility] [address] [facility] [address] [place] [address] Wilma Arana, RN [facility] L[id number] [address] [place] [address] Social History Tobacco Use Types [...] o r organizations such as mu-ism groups, [employer], [employer] or athletic groups, or school groups? Patient [...] week 05/29/2025 How often do you attend [facility] or gnosticist services? Never 05/29/2025 Do you belong to any clubs o r organizations such as mu-ism groups, unions, [employer] or athletic groups, or school groups? No [...] Never 06/25/2025 [facility] [...] first t kennedy in the morning (EYE-AIRPORT OPERATIONS SPECIALIST) to steady your nerves or to get rid of a hangover? 0 06/25/2025 CAGE Questionnaire Score 0 025 Utilities Answer Date Recorded In the past 12 months has th [employer] electric, gas, oil, or water company threatened [...] occasion? Never 06/25/2025 12:50 PM TAMMYT Henny oCmer * Over the past 2 weeks, how [...] Description 08/20/2025 9:30 AM EDT Clinical Support [facility] [address] [place] [address] 08/20/2025 10:30 AM EDT Social Work [facility] [address] [place] [address] [place] [address] 08/20/2025 11:00 AM EDT Office Visit [facility] [address] [place] [address] Jude Duque MD [address] [place] [address] 08/22/2025 11:15 AM EDT Appointment [facility] Inter[facility] Radiology [address] [place] [address] 08/22/2025 12:15 PM EDT Appointment [facility] Inter[facility] Radiology [address] [place] [address] 08/26/2025 1:00 PM EDT Office Visit [facility] Endocrinology [address] [place] [address] Miranda Hobson P, WASTEWATER TREATMENT PLANT SUPERVISOR [address] [place] [address] 08/29/2025 10:00 AM EDT Appointment [facility] Inter[facility] Radiology [address] [place] [address] 08/29/2025 11:00 AM EDT Appointment [facility] Rad[facility] [address] [place] [address] 09/05/2025 10:00 AM EDT Appointment [facility] [address] [place] [address] 09/05/2025 11:00 AM EDT Appointment [facility] Inter[facility] Rad[facility] [address] [place] [address] documented as of this encounter Visit Diagnoses [...] as of this encounter Care Teams Metal Window Screen Assembler Relationship Specialty Start Date End Date Alvarez Zimmer MD [address] [place] [address] PCP - General Family Medicine 12/07/24 Lea Fernando [address] [facility] [address] [place] [address] Senior Data Modeler Endocrinology 08/29/24 Rachel Ray, WASTEWATER TREATMENT PLANT SUPERVISOR [address] [address] Nurse Practitioner Gastroenterology 09/24/24 Tamera Isabel, MG VALUE-BASED TRANSFORMATION PROGRAM Licensed Practical Nurse 05/29/25 Alina Lovett, RN CH-VASCULAR & INTERVENTIONAL RADIOLOGY Registered Nurse 06/26/25 06/26/25 documented as of this encounter
--- OUTSIDE RECORDS SUMMARY | 2025-08-17 15:24 | XMS_ITS | Encounter Summary ---
Author Organization [employer] ([place], [place], [place], [place]) Address [address] [place] [address] Care Team Providers Care Shorts Sifter Name Role Phone Taina Lyles ADRI Primary Care Provider [phone] Encounter Details Date Type Department Care Team (Late st Contact Info) Description 09/08/2020 Transcribed Document [facility] Family Medicine [address] [place] [address] ProviderWilliam MD [address] [place] [address] Social History Tobacco Use Types [...] 09/08/2020 16:21:00 EDT morphine,4mg IV Push,Right Antec[employer] [place] Pain Assessment Pain Assessment : Follow-up assessment Angelina Cuello, PARK - 09/08/2020 17:54 EDT documented in this encounter Plan of Treatment Not on file documented as of this encounter Visit Diagnoses Not on filedocumented in this encounter Care Teams Shorts Sifter Relationship Specialty Start Date End Date Taina Lyles, ELECTRODE TURNER AND FINISHER [address] [place] [address] PCP - General Nurse Practitioner 06/15/23 documented as of this encounter
--- OUTSIDE RECORDS SUMMARY | 2025-08-17 15:25 | XMS_ITS | Encounter Summary ---
Author Organization [facility] Address [address] [place] [address] Care Team Providers Care Coordinator Of Placement Name Role Phone Lea Fernando Unavailable [phone] Rachel Ray VENETIAN BLIND INSTALLER Unavailable [phone] Alvraez Zimmer MD Primary Care Provider [phone] Tamera Isabel DAIRY CATTLE FARM MANAGER Unavailable UnavailAlina Bedolla RN Unavailable Unavailab Monique Che DAIRY CATTLE FARM MANAGER Unavailable Unavailable Reason for Visit * Reason Onset Date Comments Med Refill 03/16/2025 Encounter Details Date Type Department Care Team (Late st Contact Info) Description 03/16/2025 Refill [facility] [address] [place] [address] Alvarez Zimmer MD [address] [place] [address] Social History Tobacco Use Types [...] week 01/10/2025 How often do you attend [facility] or moravian services? Patient unable to answer [...] Recorded Patient Health Questionnaire-2 Score 0 03/06/2025 [facility] - Occupational [...] drink first t kennedy in the morning (EYE-STEP DOWN NURSE) to steady your nerves or to get rid of a hangover? 0 10/22/2024 CAGE Questionnaire Score 0 024 Utilities Answer Date Recorded In the past 12 months has e [employer], gas, oil, or water [employer] threatened to shut off services in your [...] [facility] [place] [address] [place] [address] 08/20/2025 10:30 AM EDT Social Work [facility] [place] [address] [place] [address] [place] [address] 08/20/2025 11:00 AM EDT Office Visit [facility] [place] [address] [place] [address] Jude Duque MD [address] [place] [address] 08/22/2025 11:15 AM EDT Appointment [facility] Inter[facility] Radiology [address] [place] [address] 08/22/2025 12:15 PM EDT Appointment [facility] Inter[facility] Radiology [address] [place] [address] 08/26/2025 1:00 PM EDT Office Visit [facility] Endocrinology [address] [place] [address] Miranda Hobson P, VENETIAN BLIND INSTALLER [address] [facility] [address] [place] [address] 08/29/2025 10:00 AM EDT Appointment [facility] Inter[facility] Radiology [address] [place] [address] 08/29/2025 11:00 AM EDT Appointment [facility] [address] [place] [address] 09/05/2025 10:00 AM EDT Appointment [facility] Radiology [address] [place] [address] 09/05/2025 11:00 AM EDT Appointment [facility] [address] [place] [address] documented as of this encounter Visit Diagnoses [...] documented as of this encounter Care Teams Coordinator Of Placement Relationship Specialty Start Date End [place] [address] PCP - General Family Medicine 12/07/24 Lea Fernando [address] [facility] [address] [place] [address] Drilling Machine Operator Endocrinology 08/29/24 Rachel Ray, VENETIAN BLIND INSTALLER [address] [place] [address] Nurse Practitioner Gastroenterology 09/24/24 Tamera Isabel LPN VALUE-BASED TRANSFORMATION PROGRAM Licensed Practical Nurse 05/29/25 Alina Lovett, RN CH-VASCULAR & INTERVENTIONAL RADIOLOGY Registered Nurse 06/26/25 06/26/25 Monique Tapia LPN VALUE-BASED [place] [address] TCM Nurse 07/10/25 08/09/25 documented as of this encounter
--- OUTSIDE RECORDS SUMMARY | 2025-08-17 15:25 | XMS_ITS | Encounter Summary ---
Author Organization Healthcare Address [address] [place] [address] Care Team Providers Care Gis Analyst Developer Name Role Phone Wilma Howard Ambar ROUSEN Primary Care Provider [phone] Lea Fernando Unavailable [phone] Rachel Ray CLOCK ASSEMBLER Unavailable [phone] Taina Lyles CLOCK ASSEMBLER Primary Care Provider [phone] Monique Tapia LPN Unavailable Unavailable Alvarez Zimmer MD Primary Care Provider [phone] Shaniqua Trevino PERL DEVELOPER Unavailable Unavailable Tamera Isabel PERL DEVELOPER Unavailable UnavailAlina Bedolla RN Unavailable Unavailab Monique Che LPN Unavailable Unavailable Encounter Details Date Type Department Care Team (Late st Contact Info) Description 02/02/2024 Orders Only External Location [address] [place] [address] Provider, External Social History Tobacco Use Types [...] Description 08/20/2025 9:30 AM EDT Clinical Support [facility] [place] [address] [place] [address] 08/20/2025 10:30 AM EDT Social Work [facility] [place] [address] [facility] [place] [address] [place] [address] 08/20/2025 11:00 AM EDT Office Visit [facility] [place] [address] [place] [address] Jude Duque MD [address] [facility] [address] [place] [address] 08/22/2025 11:15 AM EDT Appointment [facility] [address] [place] [address] 08/22/2025 12:15 PM EDT Appointment [facility] Inter[facility] Rad[facility] [address] [place] [address] 08/26/2025 1:00 PM EDT Office Visit [facility] Endocrinology [address] [place] [address] Miranda Hobson P, CLOCK ASSEMBLER [address] [place] [address] 08/29/2025 10:00 AM EDT Appointment [facility] Inter[facility] Rad[facility] [address] [place] [address] 08/29/2025 11:00 AM EDT Appointment [facility] [address] [place] [address] 09/05/2025 10:00 AM EDT Appointment [facility] Inter[facility] Radiology [address] [place] [address] 09/05/2025 11:00 AM EDT Appointment [facility] Inter[facility] Radiology [address] [place] [address] documented as of this encounter Procedures Procedure [...] documented as of this encounter Care Teams Gis Analyst Developer Relationship Specialty Start Date End Date Wilma Howard APRN [address] [place] [address] [place] [address] PCP - General 04/03/21 09/30/24 Taina Lyles APRN [address] [place] [address] [place] [address] PCP - General 10/01/24 12/06/24 Alvarez Zimmer MD [facility] [place] [address] PCP - General Family Medicine 12/07/24 Lea Fernando [address] [place] [address] Skiing Instructor Endocrinology 08/29/24 Rachel Ray, ADRI [address] [place] [address] Nurse Practitioner Gastroenterology 09/24/24 Monique Tapia LPN VALUE-BASED [place] [address] TCM Nurse 11/28/24 12/28/24 Shaniqua Trevino LPN TCM Nurse 01/15/25 02/14/25 Tamera Isabel LPN VALUE-BASED TRANSFORMATION PROGRAM Licensed Practical Nurse 05/29/25 Alina Lovett, RN CH-VASCULAR & INTERVENTIONAL RADIOLOGY Registered Nurse 06/26/25 06/26/25 Monique Tapia LPN VALUE-BASED [place] [address] TCM Nurse 07/10/25 08/09/25 documented as of this encounter
--- OUTSIDE RECORDS SUMMARY | 2025-08-17 15:25 | XMS_ITS | Encounter Summary ---
Author Organization Healthcare Address [address] [place] [address] Care Team Providers Care Life Science Teacher Name Role Phone Wilma Howard Ambar ROUSEN Primary Care Provider [phone] Lea Fernando Unavailable [phone] JUDGE Unavailable [phone] JUDGE Primary Care Provider [phone] Monique Tapia LPN Unavailable Unavailable Alvarez Zimmer MD Primary Care Provider [phone] Shaniqua Trevino SUPPORT SERVICE TECH Unavailable Unavailable Tamera Isabel SUPPORT SERVICE TECH Unavailable UnavailAlina Bedolla RN Unavailable Unavailab Monique Che LPN Unavailable Unavailable Encounter Details Date Type Department Care Team (Late st Contact Info) Description 05/23/2024 Orders Only External Location [address] [place] [address] Provider, External Social History Tobacco Use Types [...] AM EDT Clinical Support [facility] [place] [address] [place] [address] 08/20/2025 10:30 AM EDT Social Work [facility] [place] [address] [facility] [place] [address] [place] [address] 08/20/2025 11:00 AM EDT Office Visit [facility] [place] [address] [place] [address] Jude Duque MD [address] [facility] [address] [place] [address] 08/22/2025 11:15 AM EDT Appointment [facility] [address] [place] [address] 08/22/2025 12:15 PM EDT Appointment [facility] [address] [place] [address] 08/26/2025 1:00 PM EDT Office Visit [facility] Endocrinology [address] [place] [address] Miranda Hobson P, CONCILIATION COURT JUDGE [address] [place] [address] 08/29/2025 10:00 AM EDT Appointment [facility] [address] [place] [address] 08/29/2025 11:00 AM EDT Appointment [facility] [address] [place] [address] 09/05/2025 10:00 AM EDT Appointment [facility] [address] [place] [address] 09/05/2025 11:00 AM EDT Appointment [facility] [address] [place] [address] documented as of this encounter Procedures Procedure [...] as of this encounter Care Teams Life Science Teacher Relationship Specialty Start Date End Date Wilma Howard APRN [address] [place] [address] [place] [address] PCP - General 04/03/21 09/30/24 Taina Lyles APRN [address] [place] [address] [place] [address] PCP - General 10/01/24 12/06/24 Alvarez Zimmer MD [address] [place] [address] PCP - General Family Medicine 12/07/24 Lea Fernando [address] [place] [address] Vice Provost Endocrinology 08/29/24 Rachel Ray, CONCILIATION COURT JUDGE [address] [place] [address] Nurse Practitioner Gastroenterology 09/24/24 Monique Tapia LPN VALUE[employer] [place] [address] TCM Nurse 11/28/24 12/28/24 Shaniqua Trevino LPN TCM Nurse 01/15/25 02/14/25 Tamera Isabel LPN VALUE-BASED TRANSFORMATION PROGRAM Licensed Practical Nurse 05/29/25 Alina Lovett, RN CH-VASCULAR & INTERVENTIONAL RADIOLOGY Registered Nurse 06/26/25 06/26/25 Monique Tapia LPN VALUE[employer] [address] TCM Nurse 07/10/25 08/09/25 documented as of this encounter
--- OUTSIDE RECORDS SUMMARY | 2025-08-17 15:25 | XMS_ITS | Encounter Summary ---
Author Organization Healthcare Address [address] [place] [address] Care Team Providers Care Shampoo Assistant Name Role Phone Wilma Howard Ambar ROUSEN Primary Care Provider [phone] Lea Fernando Unavailable [phone] Rachel Ray PRESS OPERATOR ASSISTANT Unavailable [phone] Taina Lyles PRESS OPERATOR ASSISTANT Primary Care Provider [phone] Monique Tapia LPN Unavailable Unavailable Alvarez Zimmer MD Primary Care Provider [phone] Shaniqua Trevino TEA BLENDER Unavailable Unavailable Tamera Isabel TEA BLENDER Unavailable UnavailAlina Bedolla RN Unavailable Unavailab Monique Che LPN Unavailable Unavailable Encounter Details Date Type Department Care Team (Late st Contact Info) Description 02/08/2024 Orders Only External Location [address] [place] [id number] Provider, External Social History Tobacco Use Types [...] Clinical Support [facility] [place] [address] [place] [address] 08/20/2025 10:30 [address] [facility] [place] [address] [facility] [place] [address] [place] [address] 08/20/2025 11:00 AM EDT Office Visit [facility] [place] [address] [place] [address] Jude Duque MD [address] [facility] [address] [place] [address] 08/22/2025 11:15 AM EDT Appointment [facility]iology [address] [place] [address] 08/22/2025 12:15 PM EDT Appointment [facility] Inter[facility] Radiology [address] [place] [address] 08/26/2025 1:00 PM EDT Office Visit [facility] Endocrinology [address] [place] [address] Miranda Hobson P, PRESS OPERATOR ASSISTANT [address] [place] [address] 08/29/2025 10:00 AM EDT Appointment [facility] [address] [place] [address] 08/29/2025 11:00 AM EDT Appointment [facility] [address] [place] [address] 09/05/2025 10:00 AM EDT Appointment [facility] [address] [place] [address] 09/05/2025 11:00 AM EDT Appointment [facility] [address] [place] [address] documented as of this encounter Procedures Procedure [...] documented as of this encounter Care Teams Shampoo Assistant Relationship Specialty Start Date End Date Wilma Howard APRN [address] [place] [address] [place] [address] PCP - General 04/03/21 09/30/24 Taina Lyles APRN [address] [place] [address] [place] [address] PCP - General 10/01/24 12/06/24 Alvarez Zimmer MD [facility] [place] [address] PCP - General Family Medicine 12/07/24 Lea Fernando [address] [place] [address] Traffic Survey Technician Endocrinology 08/29/24 Rachel Ray, ADRI [address] [place] [address] Nurse Practitioner Gastroenterology 09/24/24 Monique Tapia LPN VAL[employer] [place] [address] TCM Nurse 11/28/24 12/28/24 Shaniqua Trevino LPN TCM Nurse 01/15/25 02/14/25 Tamera Isabel LPN VALUE-BASED TRANSFORMATION PROGRAM Licensed Practical Nurse 05/29/25 Alina Lovett, RN CH-VASCULAR & INTERVENTIONAL RADIOLOGY Registered Nurse 06/26/25 06/26/25 Monique Tapia LPN VALUE-[employer] [place] [address] TCM Nurse 07/10/25 08/09/25 documented as of this encounter
--- OUTSIDE RECORDS SUMMARY | 2025-08-17 15:25 | XMS_ITS | Encounter Summary ---
Author Organization Healthcare Address [address] [place] [address] Care Team Providers Care Senior Patrol Agent Name Role Phone Wilma Howard Ambar ROUSEN Primary Care Provider [phone] Lea Fernando Unavailable [phone] Rachel Ray LABELING SPECIALIST Unavailable [phone] Taina Lyles LABELING SPECIALIST Primary Care Provider [phone] Monique Tapia LPN Unavailable Unavailable Alvarez Zimmer MD Primary Care Provider [phone] Shaniqua Trevino VISUAL STYLIST Unavailable Unavailable Tamera Isabel VISUAL STYLIST Unavailable UnavailAlina Bedolla RN Unavailable Unavailab Monique Che LPN Unavailable Unavailable Encounter Details Date Type Department Care Team (Late st Contact Info) Description 02/08/2024 Orders Only External Location [address] [place] [address] Provider, External Social History Tobacco Use Types [...] AM EDT Clinical Support [facility] [place] [address] [place] [address] 08/20/2025 10:30 AM EDT Social Work [facility] [place] [address] [facility] [place] [address] [place] [address] 08/20/2025 11:00 AM EDT Office Visit [facility] [place] [address] [place] [address] Jude Duque MD [address] [facility] [address] [place] [address] 08/22/2025 11:15 AM EDT Appointment [facility] Inter[facility] Radiology [address] [place] [address] 08/22/2025 12:15 PM EDT Appointment [facility] Inter[facility] Radiology [address] [place] [address] 08/26/2025 1:00 PM EDT Office Visit [facility] Endocrinology [address] [place] [address] Miranda Hobson P, LABELING SPECIALIST [address] [place] [address] 08/29/2025 10:00 AM EDT Appointment [facility] [address] [place] [address] 08/29/2025 11:00 AM EDT Appointment [facility] [address] [place] [address] 09/05/2025 10:00 AM EDT Appointment [facility] [address] [place] [address] 09/05/2025 11:00 AM EDT Appointment [facility] [address] [place] [address] documented as of this encounter Procedures Procedure [...] as of this encounter Care Teams Senior Patrol Agent Relationship Specialty Start Date End Date Wilma Howard APRN [address] [place] [address] [place] [address] PCP - General 04/03/21 09/30/24 Taina Lyles APRN [address] [place] [address] [place] [address] PCP - General 10/01/24 12/06/24 Alvarez Zimmer MD [facility] [place] [address] PCP - General Family Medicine 12/07/24 Lea Fernando [address] [place] [address] Furniture Servicer Endocrinology 08/29/24 Rachel Ray, ADRI [address] [place] [address] Nurse Practitioner Gastroenterology 09/24/24 Monique Tapia LPN VALUE-[employer]ED [place] [address] TCM Nurse 11/28/24 12/28/24 Shaniqua Trevino LPN TCM Nurse 01/15/25 02/14/25 Tamera Isabel LPN VALUE-BASED TRANSFORMATION PROGRAM Licensed Practical Nurse 05/29/25 Alina Lovett, RN CH-VASCULAR & INTERVENTIONAL RADIOLOGY Registered Nurse 06/26/25 06/26/25 Monique Tapia LPN VALUE-[employer]ED [place] [address] TCM Nurse 07/10/25 08/09/25 documented as of this encounter
--- OUTSIDE RECORDS SUMMARY | 2025-08-17 15:25 | XMS_ITS | Encounter Summary ---
Author Organization Healthcare Address [address] [place] [address] Care Team Providers Care Job Printer Apprentice Name Role Phone Wilma Howard Ambar ROUSEN Primary Care Provider [phone] Lea Fernando Unavailable [phone] Rachel Ray ENGINEER OF SYSTEM DEVELOPMENT Unavailable [phone] Taina Lyles ENGINEER OF SYSTEM DEVELOPMENT Primary Care Provider [phone] Monique Tapia LPN Unavailable Unavailable Alvarez Zimmer MD Primary Care Provider [phone] Shaniqua Trevino FOREIGN COLLECTION CLERK Unavailable Unavailable Tamera Isabel FOREIGN COLLECTION CLERK Unavailable UnavailAlina Bedolla RN Unavailable Unavailab Monique Che LPN Unavailable Unavailable Encounter Details Date Type Department Care Team (Late st Contact Info) Description 02/26/2024 Orders Only External Location [address] [place] [id number] Provider, External Social History Tobacco Use Types [...] Description 08/20/2025 9:30 AM EDT Clinical Support [facility] [place] [address] [place] [address] 08/20/2025 10:30 AM EDT Social Work [facility] [place] [address] [facility]301 [place] [address] [place] [address] 08/20/2025 11:00 AM EDT Office Visit [facility] [place] [address] [place] [address] Jude Duque MD [address] [facility] [address] [place] [address] 08/22/2025 11:15 AM EDT Appointment [facility] Interventional Radiology [address] [place] [address] 08/22/2025 12:15 PM EDT Appointment [facility] Interventional Radiology [address] [place] [address] 08/26/2025 1:00 PM EDT Office Visit [facility] Endocrinology [address] [place] [address] Miranda Hobson P, ENGINEER OF SYSTEM DEVELOPMENT [address] [place] [address] 08/29/2025 10:00 AM EDT Appointment [facility] Inter[facility] Radiology [address] [place] [address] 08/29/2025 11:00 AM EDT Appointment [facility] Inter[facility] Radiology [address] [place] [address] 09/05/2025 10:00 AM EDT Appointment [facility] Inter[facility] Radiology [address] [place] [address] 09/05/2025 11:00 AM EDT Appointment [facility] Inter[facility] Radiology [address] [place] [address] documented as of this encounter Procedures Procedure [...] as of this encounter Care Teams Job Printer Apprentice Relationship Specialty Start Date End Date Wilma Howard APRN [address] [place] [address] [place] [address] PCP - General 04/03/21 09/30/24 Taina Lyles APRN [address] [place] [address] [place] [address] PCP - General 10/01/24 12/06/24 Alvarez Zimmer MD [address] [place] [address] PCP - General Family Medicine 12/07/24 Lea Fernando [address] [place] [address] Training Systems Officer Endocrinology 08/29/24 Rachel Ray APRN [address] [facility] [address] [place] [address] Nurse Practitioner Gastroenterology 09/24/24 Monique Tapia LPN VALUE-BASED [place] [address] TCM Nurse 11/28/24 12/28/24 Shaniqua Trevino LPN TCM Nurse 01/15/25 02/14/25 Tamera Isabel LPN VALUE-BASED TRANSFORMATION PROGRAM Licensed Practical Nurse 05/29/25 Alina Lovett, RN CH-VASCULAR & INTERVENTIONAL RADIOLOGY Registered Nurse 06/26/25 06/26/25 Monique Tapia LPN VALUE-BASED [place] [address] TCM Nurse 07/10/25 08/09/25 documented as of this encounter
--- OUTSIDE RECORDS SUMMARY | 2025-08-17 15:25 | XMS_ITS | Encounter Summary ---
Author Organization Healthcare Address [address] [place] [address] Care Team Providers Care Beef Boner Name Role Phone Wilma Howard Ambar ROUSEN Primary Care Provider [phone] Lea Fernando Unavailable [phone] Rachel Ray ICT CUSTOMER SUPPORT OFFICER Unavailable [phone] Taina Lyles ICT CUSTOMER SUPPORT OFFICER Primary Care Provider Monique Tapia LPN Unavailable Unavailable Alvarez Zimmer MD Primary Care Provider [phone] Shaniqua Trevino CLINICAL NURSING COORDINATOR Unavailable Unavailable Tamera Isabel CLINICAL NURSING COORDINATOR Unavailable UnavailAlina Bedolla RN Unavailable Unavailab Monique Che LPN Unavailable Unavailable Encounter Details Date Type Department Care Team (Late st Contact Info) Description 04/23/2024 Orders Only External Location [address] [place] [address] Provider, External Social History Tobacco Use Types [...] Description 08/20/2025 9:30 AM EDT Clinical Support [facility] [place] [address] [place] [address] 08/20/2025 10:30 AM EDT Social Work [facility] [place] [address] [facility]301 [place] [address] [place] [address] 08/20/2025 11:00 AM EDT Office Visit [facility] [place] [address] [place] [address] Jude Duque MD [address] [facility] [address] [place] [address] 08/22/2025 11:15 AM EDT Appointment [facility] Interventional Radiology [address] [place] [address] 08/22/2025 12:15 PM EDT Appointment [facility] Interventional Radiology [address] [place] [address] 08/26/2025 1:00 PM EDT Office Visit [facility] Endocrinology [address] [place] [address] Miranda Hobson P, ICT CUSTOMER SUPPORT OFFICER [address] [place] [address] 08/29/2025 10:00 AM EDT Appointment [facility] Inter[facility] Radiology [address] [place] [address] 08/29/2025 11:00 AM EDT Appointment [facility] Inter[facility] Radiology [address] [place] [address] 09/05/2025 10:00 AM EDT Appointment [facility] Inter[facility] Radiology [address] [place] [address] 09/05/2025 11:00 AM EDT Appointment [facility] Inter[facility] Radiology [address] [place] [address] documented as of this encounter Procedures Procedure [...] documented as of this encounter Care Teams Beef Boner Relationship Specialty Start Date End Date Wilma Howard APRN [address] [place] [address] [place] [address] PCP - General 04/03/21 09/30/24 Taina Lyles APRN [address] [place] [address] [place] [address] PCP - General 10/01/24 12/06/24 Alvarez Zimmer MD [address] [place] [address] PCP - General Family Medicine 12/07/24 Lea Fernando [address] [place] [address] Rn Oncology Endocrinology 08/29/24 Rachel Ray, ADRI [address] [place] [address] Nurse Practitioner Gastroenterology 09/24/24 Monique Tapia LPN VALUE-BASED [place] [address] TCM Nurse 11/28/24 12/28/24 Shaniqua Trevino LPN TCM Nurse 01/15/25 02/14/25 Tamera Isabel LPN VALUE-BASED TRANSFORMATION PROGRAM Licensed Practical Nurse 05/29/25 Alina Lovett, RN CH-VASCULAR & INTERVENTIONAL RADIOLOGY Registered Nurse 06/26/25 06/26/25 Monique Tapia LPN VALUE-BASED [place] [address] TCM Nurse 07/10/25 08/09/25 documented as of this encounter
[2025-08-17 15:29] LABS: Hematocrit 27.4 % (37.0-47.0); Hemoglobin 9.6 g/dL (12.2-16.2); Immature Granulocytes % 0.3 %; Mean Corpuscular HGB Conc 35.0 g/dL (31.8-35.4); Mean Corpuscular Hemoglobin 32.0 pg (27.0-31.2); Mean Corpuscular Volume 91.3 fl (81-99); Nucleated Red Blood Cells % 0 %; Platelet Count 62 K/mm3 (142-424); Red Blood Count 3.00 M/mm3 (4.20-5.40); Red Cell Distribution Width-SD 58.9 fL; White Blood Count 3.4 K/mm3 (4.8-10.8)
[2025-08-17 15:33] LABS: Ammonia 76 umol/L (9-30)
[2025-08-17 15:35] LABS: Alanine Aminotransferase 19 U/L (12-78); Albumin Level 3.0 g/dl (3.5-5.0); Albumin/Globulin Ratio 0.9 (1.1-1.8); Alkaline Phosphatase 290 U/L (38-126); Anion Gap 12.4 mEq/L (5-15); Aspartate Amino Transferase 44 U/L (14-36); Bilirubin,Total 2.9 mg/dl (0.2-1.3); Blood Urea Nitrogen 41 mg/dl (7-17); Calcium 7.3 mg/dl (8.4-10.2); Carbon Dioxide 21 mmol/L (22.0-30.0); Chloride 100 mmol/L (98-107); Creatinine Clearance Estimated 21 mL/min (50-200); Creatinine,Serum 3.00 mg/dl (0.52-1.04); Estimated Glomerular Filt Rate 16 ml/min (>60); GFR (African American) 19 ML/MIN (>60); Globulin 3.2 g/dL (1.3-3.2); Glucose 308 mg/dl (74-100); Potassium 4.4 mmoL/L (3.5-5.1); Sodium 129 mmol/L (136-145); Total Protein,Serum 6.2 g/dl (6.3-8.2)
--- NOTE | 2025-08-17 15:55 | XR_ITS ---
PROCEDURE INFORMATION: Exam: XR Chest Exam date and time: 08/17/2025 4:41 PM Age: 65 years old Clinical indication: Other: AMS TECHNIQUE: Imaging protocol: Radiologic exam of the chest. Views: 1 view. Total images: 1 COMPARISON: CT CHEST WO CON 08/17/2025 4:39 PM FINDINGS: Tubes, catheters and devices: EKG leads are present. Lungs: Right basilar atelectasis versus pneumonitis. The left lung is clear. No pulmonary vascular congestion. Pleural spaces: Small right pleural effusion. No pneumothorax. Heart/Mediastinum: Prominent cardiac silhouette. No mediastinal widening. Bones/joints: Osteopenia. Film technique limits bone detail. IMPRESSION: 1. Small right pleural effusion. 2. Right basilar atelectasis versus pneumonitis. 3. Prominent cardiac silhouette.
--- NOTE | 2025-08-17 15:55 | ECG_ITS ---
APPROVED REPORT Exam: Resting ECG HR:80 bpm ECG Measurements Heart Rate 80 AXES AL 158 P 44 QRSd 96 QRS -36 QT 404 T 30 QTc 440 Conclusion SINUS RHYTHM WITH MARKED RHYTHM IRREGULARITY, POSSIBLE NON-CONDUCTED PAC, SA BLOCK, AV BLOCK, OR SINUS PAUSE LEFT AXIS DEVIATION [QRS AXIS < -30] LOW QRS VOLTAGE IN PRECORDIAL LEADS [QRS DEFLECTION < 1.0 mV IN CHEST LEADS] POSSIBLE ANTERIOR MYOCARDIAL INFARCTION , OF INDETERMINATE AGE [30 ms Q WAVE IN V3/V4, OR R < 0.2 mV IN V4] CRITICAL TEST RESULT UNCONFIRMED REPORT Electronically signed by : BRIANA ELLIS, 08/19/2025 23:05:03
[2025-08-17 16:06] LABS: Troponin I < 0.01 ng/ml (0.00-0.034)
--- NOTE | 2025-08-17 16:09 | CT_ITS ---
PROCEDURE INFORMATION: Exam: CT Head Without Contrast Exam date and time: 08/17/2025 4:36 PM Age: 65 years old Clinical indication: Altered mental status/memory loss; Additional info: AMS TECHNIQUE: Imaging protocol: Computed tomography of the head without contrast. Radiation optimization: All CT scans at this facility use at least one of these dose optimization techniques: automated exposure control; mA and/or kV adjustment per patient size (includes targeted exams where dose is matched to clinical indication); or iterative reconstruction. COMPARISON: No relevant prior studies available. FINDINGS: Brain: There is no evidence of acute intracranial hemorrhage, extra-axial collection or locoregional mass effect. There are scattered hypodensities in the periventricular and subcortical white matter. The appearance is nonspecific, but most likely represents chronic small vessel disease in a person of this age Cerebral ventricles: The ventricles, sulci and cisterns are normal in size and configuration for patient's age. No hydrocephalus or midline structure shift Pituitary gland and sella: Sellar/parasellar structures, craniocervical junction and orbits are unremarkable Paranasal sinuses: Visualized sinuses are unremarkable. No fluid levels. Mastoid air cells: Visualized mastoid air cells are well aerated. Bones: No calvarial fracture Soft tissues: Unremarkable. IMPRESSION: No acute intracranial abnormality. No calvarial fracture.
--- NOTE | 2025-08-17 16:09 | CT_ITS ---
PROCEDURE INFORMATION: Exam: CT Chest Without Contrast; Diagnostic Exam date and time: 08/17/2025 4:39 PM Age: 65 years old Clinical indication: Other: AMS TECHNIQUE: Imaging protocol: Diagnostic computed tomography of the chest without contrast. Total images: 317 Radiation optimization: All CT scans at this facility use at least one of these dose optimization techniques: automated exposure control; mA and/or kV adjustment per patient size (includes targeted exams where dose is matched to clinical indication); or iterative reconstruction. COMPARISON: CR XR CHEST PORTABLE 06/23/2025 5:56 PM FINDINGS: Thyroid: Nonenlarged mildly heterogeneous thyroid gland. Trachea: Posterior tracheal wall collapse from expiration or tracheomalacia. Lungs: Compressive atelectasis right lung. Ground-glass opacity right lung likely reflecting atelectasis or component of nonspecific pneumonitis. The left lung is clear. Pleural spaces: Small to moderate right pleural effusion. No pneumothorax. No left pleural effusion. Heart: Normal heart size. No pericardial effusion. Coronary arteries: Coronary artery calcifications. Mediastinal space: No mediastinal mass or hematoma. Lymph nodes: Scattered small mediastinal lymph nodes are not pathologically enlarged. Limited hilar assessment by lack of contrast. Vasculature: Upper normal ascending thoracic aorta at 4 cm. No focal aneurysm. Intraperitoneal space: Upper abdominal findings described separately. Bones/joints: Osteopenia. Moderate degenerative changes throughout the thoracic spine. Soft tissues: Unremarkable. IMPRESSION: 1. Small to moderate right pleural effusion with adjacent compressive atelectasis. 2. Additional ground-glass opacity right lung likely reflecting atelectasis or component of nonspecific pneumonitis. 3. Upper normal ascending thoracic aorta at 4 cm. 4. Posterior tracheal wall collapse from expiration versus tracheomalacia. 5. Coronary artery calcifications.
--- NOTE | 2025-08-17 16:10 | CT_ITS ---
PROCEDURE INFORMATION: Exam: CT Abdomen And Pelvis Without Contrast Exam date and time: 08/17/2025 4:39 PM Age: 65 years old Clinical indication: Other: AMS TECHNIQUE: Imaging protocol: Computed tomography of the abdomen and pelvis without contrast. Total images: 353 Radiation optimization: All CT scans at this facility use at least one of these dose optimization techniques: automated exposure control; mA and/or kV adjustment per patient size (includes targeted exams where dose is matched to clinical indication); or iterative reconstruction. COMPARISON: CT ABDOMEN PELVIS WO CON 06/23/2025 6:38 PM FINDINGS: Tubes, catheters and devices: Left trans sacral nerve root stimulator with generator implanted in the subcutaneous tissues posterior to the lumbar spine. Lungs: Lung bases are clear. Heart: Normal heart size. Esophagus: Distal esophageal, short gastric, omental, mesenteric and perisplenic varices. Recanalized umbilical vein. Anterior abdominal wall varices. Liver: Advanced liver cirrhosis. No discrete mass on this very limited noncontrast exam. Gallbladder and biliary ducts: Status post cholecystectomy. No biliary ductal dilatation. Pancreas: Peripancreatic edema. Spleen: Splenomegaly at 17.2 cm. Adrenal glands: Normal. No mass. Kidneys and ureters: No hydronephrosis, nephrolithiasis, or discrete renal mass. Mild bilateral perinephric fat stranding. Stomach and bowel: Gastric wall thickening. Duodenal and small bowel wall thickening. No ileus or bowel obstruction. No significant colonic wall thickening. Moderate colonic stool burden. Unremarkable rectum. Appendix: The appendix is not discretely visualized. Intraperitoneal space: Moderate to large ascites. No free intraperitoneal air. Mesenteric edema. Vasculature: Nonaneurysmal abdominal aorta. Pelvic phleboliths. Lymph nodes: Unremarkable. No enlarged lymph nodes. Urinary bladder: Unremarkable as visualized. Reproductive: Status post hysterectomy. No pelvic mass. Bones/joints: Osteopenia. Moderate degenerative changes of the lumbar spine. Mild degenerative changes bilateral hips. Soft tissues: Moderate body wall edema/anasarca. Notes: Limited by attenuation artifact morbid obesity, motion artifact, lack of contrast. IMPRESSION: 1. Advanced liver cirrhosis with portal hypertension, varices, and splenomegaly. 2. Worsening moderate to large quantity ascites. 3. Peripancreatic edema from pancreatitis versus anasarca/3rd spacing. Please correlate with lipase. 4. Worsening anasarca/3rd spacing. 5. Generalized bowel wall thickening implying sequela of portal enteropathy versus nonspecific infectious/inflammatory gastro enteritis.
[2025-08-17 17:22] LABS: Microscopic, Urine URINE MICROSCOPIC (MICROSCOPIC)
[2025-08-17 17:23] LABS: Bilirubin,Urine Negative (Negative); Color,Urine YELLOW (Yellow); Glucose,Urine (UA) Negative (Negative); Ketones,Urine TRACE (Negative); Leukocyte Esterase,Urine 3+ (Negative); PH,Urine 5.5 (5.0-8.5); Protein,Urine Negative (Negative); Specific Gravity, Urine 1.015 (1.005-1.030); Urobilinogen,Urine 0.2 EU/dl (0.2)
[2025-08-17 17:30] LABS: RBC,Urine Occasional #/hpf (0-3); WBC,Urine 20-50 #/hpf (0-3)
[2025-08-17 17:31] LABS: Bacteria,Urine 2+ /lpf
[2025-08-17 18:37] LABS: INR 1.51 (0.9-1.1); Prothrombin Time 16.3 seconds (10.1-12.5)
[2025-08-17 19:00] LABS: Hepatitis C Ab Qual. W/ RFX NEGATIVE (Negative)
[2025-08-17 19:15] LABS: Troponin I < 0.01 ng/ml (0.00-0.034)
--- NOTE | 2025-08-17 19:33 | PC.NURSE ---
Called [facility] for possible pt transfer
[2025-08-17] MEDS: ONDANSETRON 4MG/2ML VIAL 4 MG IV (19:49)
[2025-08-17] MEDS: ACETAMINOPHEN 500MG TAB 500 MG PO (19:49)
[2025-08-17] MEDS: RINGERS SOLUTION,LACTATED 500 ML 999 ML IV (19:50)
--- NOTE | 2025-08-17 20:00 | PC.NURSE ---
Spoke with [facility] to update them about this pts care
[2025-08-17] MEDS: ALBUMIN HUMAN 12.5 GM/50 ML BAG IV ×2 (20:13→21:00)
--- NOTE | 2025-08-17 20:41 | PC.NURSE ---
notified [facility] of transfer
[2025-08-18] VITALS (21 sets, daily range): BP systolic 89–127; BP diastolic 49–70; PULSE 56–88; RESP 13–17; TEMP 36.8; O2SAT 95–100
[2025-08-18] MEDS: RINGERS SOLUTION,LACTATED 500 ML 999 ML IV (02:32)
--- NOTE | 2025-08-18 02:39 | PC.NURSE ---
changed brief, placed new IV due to pt pulling old one out while sleeping, new warm blankets placed on pt
== END 2025-08-18 04:32 | disposition other institution (70) ==
PROVIDERS: Emergency Provider Student in an Organized Health Care Education/Training Program; PCP Internal Medicine Adolescent Medicine
DX: R41.82 Altered mental status, unspecified (principal); K72.90 Hepatic failure, unspecified without coma; K74.60 Unspecified cirrhosis of liver; E72.29 Other disorders of urea cycle metabolism; N17.9 Acute kidney failure, unspecified
CPT/HCPCS: 70450; 71045; 71250; 74176; 80053; 81001; 82140; 84484; 85025; 85610; 86803; 87040; 87086; 87389; 93005; 96365; 96367; 96375; 99285; J0696; J2405; J7120; P9047

== ENCOUNTER 2025-08-25 15:10 | Outpatient (CLI) | payer MEDICARE, MEDICAID, SELFPAY ==
--- OUTSIDE RECORDS SUMMARY | 2023-07-07 19:50 | XMS_ITS | Encounter Summary ---
Author Organization [facility] Address [address] [place] [address] Care Team Providers Care Paper Cone Drying Machine Operator Name Role Phone Taina Lyles APRN Primary Care Provider [phone] Reason for Referral * Hospital - Outpatient (Routine) - Closed Specialty Diagnoses / Procedures Referred By Eder zhu Referred To Contact Diagnoses JONATHAN (obstructive sleep apnea) Obesity (BMI 30-39.9) Nocturnal hypoxia Procedures Polysomnography 4 or More Parameters With CPAP Whitney Agarwal MD [address] [place] [address] Phone: tel: fax: Referral ID Status Reason Start Date Expiration Date Visits Re quested Visits Authorized [id number] Closed 04/14/2023 04/13/2024 1 1 Reason for Visit * Hospital - Outpatient (Routine) - Closed Specialty Diagnoses / Procedures Referred By Eder zhu Referred To Contact Diagnoses JNOATHAN (obstructive sleep apnea) Obesity (BMI 30-39.9) Nocturnal hypoxia Procedures Polysomnography 4 or More Parameters With CPAP Whitney Agarwal MD [address] [place] [address] [address] Phone: tel: fax: Referral ID Status Reason Start Date Expiration Date Visits Re quested Visits Authorized [id number] Closed 04/14/2023 04/13/2024 1 1 Encounter Details Date Type Department Care Team (Latest Contact Info) Description 07/07/2023 7:50 PM EDT Hospital Encounter [facility] LONGITUDINAL FLOAT OPERATOR DIAG CTR [address] [place] [address] Whitney Agarwal MD [address] [facility] [address] [place] [address] JONATHAN (obstructive sleep apnea); Obesity [...] place to sleep or slept in a snf (including now)? No 12/01/2022 Abuse Screen Answer [...] SLEEP MEDICINE - 07/09/2023 12:44 PM EDT [facility] Pulmonary, Critical Care, and Sleep Medicine Whitney Agarwal M.D. [address] [facility] [address] Medical Office [address]. [address]. CPAP/BiPAP TITRATION INTERPRETATION Date of Study: 07/07/2023 [...] feel free to contact the office of [facility] Pulmonary, Critical Care and Sleep Medicine at [phone], if you have any questions about this [...] documented as of this encounter Care Teams Paper Cone Drying Machine Operator Relationship Specialty Start Date End Date Taina Lyles APRN PCP - General Nurse Practitioner 12/30/22 documented as of this encounter
--- OUTSIDE RECORDS SUMMARY | 2025-06-25 14:14 | XMS_ITS | Encounter Summary ---
Author Organization [facility] Address [address] [place] [address] Care Team Providers Care Parachute Taper Name Role Phone Lea Fernando Unavailable [phone] Rachel Ray CHILD & ADOLESCENT PSYCHIATRIST Unavailable [phone] Alvarez Ordaz MD Primary Care Provider [phone] Tamera Isabel WORKERS COMPENSATION CLAIMS ADJUSTER Unavailable Unavailabl Alina Jennings RN Unavailable Unavailab le Reason for Referral * Consultation (Routine) - Authorized Specialty Diagnoses / Procedures Referred By Contac t Referred To Contact Family Medicine Diagnoses CARLOTTA (acute kidney injury) Kayla Reed MD [address] [facility] [address] [place] [address] Phone: tel: fax: Referral ID Status Reason Start Date Expiration Date Visits Requested Visits Authorized [id number] Authorized Specialty Services Required 07/09/2025 01/08/2027 1 1 * Imaging (Routine) - Closed Specialty Diagnoses / Procedures Referred By Contac t Referred To Contact Radiology Diagnoses Other ascites Alcoholic cirrhosis of liver with ascites Procedures US Guided Abdominal Paracentesis Marianna Gordon, CHILD & ADOLESCENT PSYCHIATRIST [address] [place] [address] Phone: tel: fax: Referral ID Status Reason Start Date Expiration Date Visits Re quested Visits Authorized [id number] Closed 06/14/2025 12/14/2026 1 1 * Imaging (Routine) - Closed Specialty Diagnoses / Procedures Referred By Contac audra Referred To Contact Radiology Diagnoses Pleural effusion Shortness of breath Procedures US Guided Thoracentesis Marianna Gordon APRN [address] [place] [address] Phone: tel: fax: Referral ID Status Reason Start Date Expiration Date Visits Re quested Visits Authorized [id number] Closed 06/14/2025 12/14/2026 1 1 Reason for Visit * Reason Comments Abnormal Lab Creatinine mentioned by PT. * Auth/Cert (Routine) Specialty Diagnoses / Procedures Referred By Eder zhu Referred To Contact Diagnoses CARLOTTA (acute kidney injury) Chilo Morales MD [address] [place] [phone] Phone: tel: fax: [facility] [address] [place] [address] Phone: tel: Referral ID Status Reason Start Date Expiration Date Visits Re quested Visits Authorized [id number] 1 1 Encounter Details Date Type Department Care Team (Late st Contact Info) Description 06/25/2025 2:14 PM EDT - 07/09/2025 1:19 PM EDT Hospital Encounter [facility] [address] [place] [address] Kadie Mauro MD [address] [place] [address] Chilo Morales MD [address] [address] Fabiana Cunningham MD [address] [facility] [address] [place] [address] Kayla Reed MD [address] [address] CARLOTTA (acute kidney injury) (CMS/HCC) [...] week 01/10/2025 How often do you attend [facility] or mandaen services? Patient unable to [...] How often do you attend chur or mandaen services? Never 05/29/2025 Do you belong to [...] more drinks on one occasion? Never 06/25/2025 [facility] - [facility]ational Stress Questionnaire [...] living in a jail (including now)? No 06/26/2025 CAGE ASSESSMENT Answer [...] drink first t kennedy in the morning (EYE-THERAPY DIRECTOR) to steady your nerves or to get rid of a hangover? 0 06/25/2025 CAGE Questionnaire Score 0 025 Utilities Answer Date Recorded In the past 12 months has th e electric, gas, oil, or water [employer] threatened to shut off services in your [...] this encounter Medications at Time of Discharge calcitriol (Rocaltrol) 0.25 MCG capsuleIndication s:Chronic kidney disease, stage 3b (CMS/HCC) Take 1 capsule by mouth daily. 30 capsule 06/10/2025 calcium carbonate EX (Tums E-X) 750 MG chewable tablet Chew 1 tablet (750 mg) 1 (one) time each day. 12/05/2024 carboxymethylcell ulose PF (Refresh Plus) 0.5 % [...] 1 03/01/2025 ergocalciferol (Vitamin D-2) 1.25 MG (53501 UT) capsuleIndication s:Vitamin D deficiency Take 1 capsule by mouth 1 time per week. 4 capsule 06/27/2025 6 insulin glargine-yfgn 100 UNIT/ML injection vial Inject [...] daily. 90 tablet 3 04/01/2025 midodrine (Proamatine) 5 MG tablet Take 3 [...] Take 1 tablet by mouth nightly. 07/09/2025 lidocaine (Lidoderm) 5 % patch Apply 1 patch topically 1 (one) time each day at the same time over 12 hours for 6 doses. Remove & discard patch within 12 hours or as directed by . 07/09/2025 5 Abaloparatide (Tymlos) 3120 MCG/1.56ML solution pen-injector Inject 80 mcg under the skin daily. 1.56 mL 2 04/22/2025 5 benzonatate (Tessalon) 100 MG capsule Take 1 capsule by mouth 3 times a day as needed for cough. Do not crush or chew. 07/09/2025 5 bisacodyl (Dulcolax) 10 MG suppository Insert 1 suppository into the rectum daily as needed for constipation. 07/09/2025 5 capsaicin (Zostrix-HP) 0.075 % topical cream Apply 1 Application topically daily as needed (Leg and foot cramps). 5 hydrOXYzine HCl (Atarax) 25 MG tablet Take 0.5 tablets by mouth at night as needed for itching. 07/09/2025 5 insulin lispro (Admelog) 100 UNIT/ML injection Inject 0-3 Units under the skin 2 times a night. See After Visit Summary for instructions on how to take your insulin. 07/09/2025 5 melatonin tablet Take 1 tablet by mouth at night as needed for sleep. 07/09/2025 5 polyethylene glycol (Miralax) 17 g packet Take 17 g by mouth 2 times a day. 07/09/2025 5 Zegalogue 0.6 MG/0.6ML solution auto-injectorIndi cations:Type 2 diabetes mellitus with hyperglycemia, with long-term current use of insulin Inject 0.6 mg under the skin 1 time as needed (for extreme hypoglycemia) for up to 1 dose. 0.6 mL 2 04/17/2025 5 zinc sulfate (Zincate) 220 (50 Zn) MG capsule Take 1 capsule by mouth in the morning and 1 capsule before bedtime. 60 capsule 2 03/01/2025 5 documented as of this encounter Miscellaneous Notes * Progress Notes - Venessa Brown - 07/09/2025 1:19 PM EDT Case Management Discharge Note Monika Ordaz 64 y.o. female CSN: [id number] Admission: 06/25/2025 2:14 PM Primary Problem: Cirrhosis of liver with ascites (CMS/HCC) Primary Cement Storage Worker: Primary Caregiver: Self Assistance Available at Discharge: Current Outpatient/Agency/Support Group: DME, jail facility Availability of Care Givers (#Hours): 24 hours Family/Cement Storage Worker(s) Willingness Assessed to care for patient at home: Yes Family/Cement Storage Worker(s) Readiness Assessed to care for patient at home: Yes Housing Circumstances-Z Codes: Housing Circumstances (select all that apply): Low Income (101-300% Federal Poverty Guidlines) - Z596 Discharge Facility/Level of Care Needs: Discharge Facility/Level of Care Needs: 3-Care Home Facility Patient/Family Anticipated Services at Transition: Patient/Family Anticipated Services at Transition: jail DME/Equipment Needed after Discharge: Equipment Currently Used at Home: walker, rollator, Cpap Medicare Documentation: Medicare Second Notice?: Yes Date Second Notice Completed: 07/09/25 Time Second Notice Completed: 841 Medicare Second Notice Recieved By: patient [facility]: [facility]varez Ordaz [facility] [address] [facility] [id number] Discharge Transportation: Transportation Anticipated: family or friend [...] ready for discharge. Pt was discharged to [facility] for SNF/LTC. Pts was transported to the [...] reviewed Intervention: Promote Injury-Free Environment Flowsheets (Taken 07/09/2025799) Safety Promotion/Fall Prevention: activity supervised Problem: Skin Injury Risk Increased Goal: Skin Health and Integrity Outcome: Ongoing, Progressing Intervention: Optimize Skin Protection Flowsheets (Taken 07/09/2025 08) Activity Management: activity adjusted per tolerance Intervention: Promote and Optimize Oral Intake Flowsheets (Taken 07/09/2025799) Oral Nutrition Promotion: rest periods promoted Problem: [...] 08) Oral Nutrition Promotion: rest periods promoted Goal: Effective Renal Function Outcome: Ongoing, Progressing Intervention: Monitor and Support Renal Function Flowsheets (Taken 07/09/2025799) Medication Review/Management: medications reviewed Problem: Diabetes Goal: Optimal Coping Outcome: Ongoing, Progressing Intervention: Support Wellbeing and Self-Management Success Flowsheets (Taken 07/09/2025799) Family/Support System Care: self-care encouraged Goal: Optimal Functional Ability Outcome: Ongoing, Progressing Intervention: Optimize Functional Ability Flowsheets (Taken 07/09/2025 0800) Activity Assistance Provided: assistance, stand-by Goal: [...] Ongoing, Progressing Intervention: Promote Activity and Functional Hamilton Flowsheets (Taken 07/09/2025 0800) Activity Assistance Provided: assistance, stand-by * Consults - Yudith Coates RD - 07/09/2025 9:38 AM EDT Adult Nutrition Evaluation Note Monika Ordaz 64 y.o. female CSN: [id number] Room/Bed 723/723A Nutrition evaluation type: follow-up Reason for evaluation: provider consult Hospital course: 64y/o female admitted 06/25 for CARLOTTA on CKD and inability to care for herself. S/p paracentesis and thoracentesis on 07/04. Past medical/ surgical history: Past Medical History[1] Surgical History[2] Social history: None, no mandaen needs Additional comments: 07/09: Pt seen at bedside. Reported tolerating PO as best as she can given limited appetite r/t cirrhosis with ascites. Pt has tried Boost supplements but does not enjoy them as she does not like the mouthfeel of the original supplements nor does she enjoy the flavors of Boost Breeze. Pt voiced some anxiety about discharging to [facility] today. Encouraged pt to eat in the dining room with otherresidents, ask about food items that are offered so she may find items she likes and tolerates, anddiscussed that the [facility] may have supplements like Magic Cups that [...] (Calculated): 29.57 Weight Evaluation: Overweight (BMI 25-29.9) [place] Body Weight (kg): 56.8 Percent [place] Body Weight: 142 Adjusted Body Weight (kg): [...] oz) Estimated Needs: Kcal/ K-35 Kcal Provided: 6004-9132 Kcal Needs Based On: Adjusted weight (63 kg) Gm Protein/ Kg : 1.2-1.5 Protein Provided: 76-95 Protein Needs Based On: Adjusted weight (63 kg) Fluid Provided: 1 ml/kcal or per MD team Metabolic Cart Study Results: Current Nutrition Intake: Diet Supplements: Boost Breeze Diet Order: Adult Diet Diet Texture: Regular Adult Carbohydrate Restriction: Consistent CHO 2 (5887-9067 Deniz, 80 g/meal) Adult Sodium Restriction: 2,000 [...] 09/20/2019 Added automatically from request for surgery [id number] Coronary artery disease Depression 1996 Diabetes mellitus [...] 1979 BLADDER SURGERY N/A Bladder surgery from [facility] BREAST BIOPSY 2011 BREAST SURGERY 2010 BUNIONECTOMY Right CATARACT EXTRACTION Bilateral 2016 CHOLECYSTECTOMY 1980 ESOPHAGOGASTRODUODENOSCOPY HYSTERECTOMY N/A Hysterectomy from [facility] KNEE SURGERY Bilateral ORAL SURGERY N/A Oral surgery from [facility] OTHER SURGICAL HISTORY 2015 ROOT CANAL WISDOM TOOTH EXTRACTION [3] calcitriol, [...] capsule 2 ergocalciferol (Vitamin D-2) 1.25 MG (19238 UT) capsule Take 1 capsule by mouth [...] PCP name and Address: Alvarez Ordaz MD [address] [place] [address] Referring provider name and address: No referring [...] to care for self. On arrival to [facility], patient promptly evaluated by FM Team. [...] vit D 1000 U was continued. Weekly 19866 vit D was not resumed during hospital [...] off oftransplant list in favor of pursuing fpc care placement. MELD improved to 21. #Other neutropenia #Pancytopenia Baseline WBC is 4.0 and baseline RBC was 3.0. Most recent WBC was 3.24 with 1.84 absolute neutrophils and most recent RBC was 2.67. Labs were monitored throughout the patient's hospital stay. [id number] was initiated for DVT prophylaxis. Blood smear [...] patient was amenable to going to a jail facility. 06/28, patient had an episode of [...] nephrology appointment due to concern for CARLOTTA. CASUALTY INSURANCE CLAIM ADJUSTER consult ordered. CASUALTY INSURANCE CLAIM ADJUSTER saw patient and determined no overt s/s [...] mouth in the morning. ergocalciferol 1.25 MG (08487 UT) capsule Commonly known as: Vitamin D-2 [...] 12 hours or as directed by . Magnesium Oxide (Laxative) 500 MG tablet Take [...] Your Medications These medications were sent to [facility] - [place], [place] - 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 Discharge Disposition/Condition Disposition: SNF at [facility] Condition: Stable (s/sx potential problems absent or manageable) I spent >30 minutes of patient care and instruction time in preparation for this discharge. Juliane Rodriguez, MS4 Cosigned by Kayla Reed MD at 07/09/2025 12:26 PM EDT Associated attestation - Kayla Reed MD - 07/09/2025 12:26 PM EDT I saw and evaluated the patient with the medical/AOC AADC OPERATIONS STAFF OFFICER/PA student. I discussed the case with the medical/AOC AADC OPERATIONS STAFF OFFICER/PA student and agree with the findings and plan as documented. I personally performed the Examand Medical Decision Making. * Care Plan - Elianemarciakpjeremias Felecia - 07/08/2025 8:30 PM EDT Problem: Fall [...] Ongoing, Progressing Intervention: Promote Activity and Functional Hamilton Flowsheets (Taken 07/08/20251999) Activity Assistance Provided: assistance, [...] Directive/Living Will: Yes Health Care Power of Private Banker: No Communication of Medical Status/Prognosis: Ms. Ordaz verified that she has completed advance directive designating her healthcare surrogates with the social media editor. She is pending placement in nursing facility and I recommended consideration of completion of MOST form to outline her medical wishes should she become ill at the facility. MOST form completed as below. As part of completion of MOST form I addressed code status. Ms. Ordaz statesshloyd would want to undergo resuscitation if it [...] EDTAssociated Problem(s): Cirrhosis of liver with ascites - Cr stable at 1.16 - Paracentesis [...] encouraged Intervention: Promote Injury-Free Environment Flowsheets (Taken 07/08/2025 08) Safety Promotion/Fall Prevention: activity supervised Problem: Skin Injury Risk Increased Goal: Skin Health and Integrity Outcome: Ongoing, Progressing Intervention: Optimize Skin Protection Flowsheets (Taken 07/08/2025799) Activity Management: activity adjusted per tolerance Intervention: Promote and Optimize Oral Intake Flowsheets Taken 07/08/2025 1125 Nutrition Interventions: diet adjusted supplemental foods provided Taken 07/08/2025799 Oral Nutrition Promotion: rest periods promoted Problem: Adult Inpatient Plan of Care Goal: Plan of Care Review Outcome: Ongoing, Progressing Flowsheets Taken 07/08/2025 1125 Progress: no change Plan of Care Reviewed With: patient Taken 07/07/2025 1407 Outcome Evaluation: pt will partcipate in plan of care during this shift. Goal: Patient-Specific Goal (Individualized) Outcome: Ongoing, Progressing Flowsheets (Taken 07/08/2025 08) Patient/Family-Specific Goals (Include Timeframe): pt will particpate in OT/PT during this shift Individualized Care Needs: work with pt/ot Anxieties, Fears or Concerns: sad about going to [facility] Goal: Absence of Hospital-Acquired Illness or Injury Outcome: Ongoing, Progressing Intervention: Identify and Manage Fall Risk Flowsheets (Taken 07/08/2025 08) Safety Promotion/Fall Prevention: activity supervised Intervention: Prevent Skin Injury Flowsheets (Taken 07/08/2025799) Body Position: weight shifting Intervention: Prevent and Manage VTE (Venous Thromboembolism) Risk Flowsheets (Taken 07/08/2025 08) VTE Prevention/Management: medication Intervention: Prevent Infection Flowsheets (Taken 07/08/2025799) Infection Prevention: hand hygiene promoted Goal: Optimal Comfort and Wellbeing Outcome: Ongoing, Progressing Intervention: Monitor Pain and Promote Comfort Flowsheets (Taken 07/08/2025 08) Pain Management Interventions: medication (see MAR) Intervention: Provide Person-Centered Care Flowsheets (Taken 07/08/2025799) Trust Relationship/Rapport: care explained Problem: Acute Kidney Injury/Impairment Goal: Fluid and Electrolyte Balance Outcome: Ongoing, Progressing Intervention: Monitor and Manage Fluid and Electrolyte Balance Flowsheets (Taken 07/08/2025 112) Fluid/Electrolyte Management: fluids adjusted Goal: Improved Oral Intake Outcome: Ongoing, Progressing Intervention: Promote and Optimize Oral Intake Flowsheets (Taken 07/08/2025 112) Nutrition Interventions: diet adjusted supplemental foods provided Goal: Effective Renal Function Outcome: Ongoing, Intervention: Monitor and Support Renal Function Flowsheets (Taken 07/08/2025799) Medication Review/Management: medications reviewed Problem: Diabetes Goal: Optimal Coping Outcome: Ongoing, Intervention: Support Wellbeing and Self-Management Success Flowsheets (Taken 07/08/2025799) Family/Support System Care: self-care encouraged Goal: Optimal Functional Ability Outcome: Ongoing, Intervention: Optimize Functional Ability Flowsheets (Taken 07/08/2025 08) Activity Assistance Provided: assistance, stand-by Goal: Blood Glucose Level Within Target Range Outcome: Ongoing, Intervention: Optimize Glycemic Control Flowsheets (Taken 07/08/20251124) Hyperglycemia Management: blood glucose monitored Goal: Minimize Hypoglycemia Risk Outcome: Ongoing, Intervention: Minimize and Manage Hypoglycemia Flowsheets (Taken 07/08/20251124) Hypoglycemia Management: blood glucose monitored Problem: Self-Care Deficit Goal: Improved Ability to Complete Activities of Daily Living Outcome: Ongoing, Progressing Intervention: Promote Activity and Functional Hamilton Flowsheets (Taken 07/08/2025799) Activity Assistance Provided: assistance, stand-by * Assessment & Plan Note - Juliane Rodriguez - 07/08/2025 11:14 AM EDTAssociated Problem(s): Type 2 diabetes mellitus, with long-term current use of insulin - Glucose 172 PLAN - Continue Glargine 24 U daily + resistant SSI - Continue to monitor glucose trends * Assessment & Plan Note - Juliane Rodriguez - 07/08/2025 11:14 AM EDTAssociated Problem(s): Diabetic peripheral neuropathy - Glucose 172 PLAN - Continue Glargine [...] Mobility Bed Mobility Exam: Scooting/Bridging Level of Hamilton: Stand-by assist Physical/Nonphysical Assist: Supervision Assistive Device: Bed rails Bed Mobility Exam: Supine to Sit Level of Hamilton: Stand-by assist Physical/Nonphysical Assist: Supervision, HOB elevated Assistive Device: Bed rails Bed Mobility Exam: Sit to Supine Level of Hamilton: Stand-by assist Physical/Nonphysical Assist: Supervision, HOB elevated Assistive Device: Bed rails Transfers Transfer Exam: Sit to stand Level of Hamilton: Stand-by assist Physical/Nonphysical Assist: Supervision Assistive Device: Rollator Transfer Exam: Stand to Sit Level of Hamilton: Stand-by assist Physical/Nonphysical Assist: Supervision Assistive Device: [...] Note Monika Ordaz 64 y.o. female CSN: [id number] Admission: 06/25/2025 2:14 PM Primary Problem: Acute kidney injury superimposed on stage 3b chronic kidney disease (CMS/HCC) Additional Comments SW met with the Family Medicine team to discuss pts POC. Pt is medically ready for discharge at this time. Pt is pending insurance approval for SNF at [facility]. 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 - Chronic; Continue to hold Crestor * [...] mellitus, with long-term current use of insulin ([facility]/HCC) Diabetic peripheral neuropathy ([facility]) - Glucose 172 PLAN - Continue Glargine 24 U daily + resistant SSI - Continue to monitor glucose trends Dysphagia Heartburn - Reflux stable PLAN - Continue to hold omeprazole Serum ammonia increased ([facility]) - Ammonia 146 PLAN - Increase home Lactulose to 30 g TID - Recheck ammonia if neurologic change suspected Hypomagnesemia - Mg 1.9 PLAN - Continue magnesium oxide 400 mg daily - Check Levels Daily Chronic obstructive pulmonary disease ([facility]) JONATHAN treated with BiPAP - Chronic; on home BiPAP, per RT recs 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 I discussed the case with the medical/AOC AADC OPERATIONS STAFF OFFICER/PA student and agree with the findings and [...] Ongoing, Progressing Intervention: Promote Activity and Functional Hamilton Flowsheets (Taken 07/07/20251999) Activity Assistance Provided: assistance, stand-by Self-Care Promotion: independence encouraged * Care Alexandre - Mariam Gonzalez RN - 07/07/2025 2:09 PM EDT Problem: Fall Injury Risk Goal: Absence of Fall and Fall-Related Injury Intervention: Identify and Manage Contributors Flowsheets (Taken 07/07/2025799) Medication Review/Management: medications reviewed Self-Care Promotion: independence [...] superimposed on stage 3b chronic kidney disease (Resolved 08/20/2025) - Cr stable at 1.2 - Paracentesis [...] Associated Problem(s): Cirrhosis of liver with ascites - Cr stable at 1.2 - Paracentesis [...] mellitus, with long-term current use of insulin - Glucose 151 PLAN - Continue Glargine 24 U daily + resistant SSI - Continue to monitor glucose trends * Assessment & Plan Note - Marcelo Pichardo - 07/07/2025 12:59 PM EDT Associated Problem(s): Diabetic peripheral neuropathy - Glucose 151 PLAN - Continue Glargine [...] Associated Problem(s): Serum ammonia increased (CMS/HCC) - Last [...] EDT Associated Problem(s): Chronic obstructive pulmonary disease - Chronic; on home BiPAP, per RT recs * Assessment & Plan Note - Marcelo Pichardo - 07/07/2025 12:59 PM EDT Associated Problem(s): JONATHAN treated with BiPAP - Chronic; on home BiPAP, per RT recs * Assessment & Plan Note - Marcelo Pichardo - 07/07/2025 12:59 PM EDT Associated Problem(s): 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 - Chronic; Continue to hold Crestor * [...] use of insulin (CMS/HCC) Diabetic peripheral neuropathy ([facility]/HCC) - Glucose 151 PLAN - Continue Glargine 24 U daily + resistant SSI - Continue to monitor glucose trends Dysphagia Heartburn - Reflux stable PLAN - Continue to hold omeprazole Serum ammonia increased ([facility]/HCC) - Last ammonia stable at 61 on 06/30 PLAN - Continue home Lactulose - Recheck ammonia if neurologic change suspected Hypomagnesemia - Mg 1.9 PLAN - Continue magnesium oxide 400 mg daily - Check Levels Daily Chronic obstructive pulmonary disease (CMS/HCC) JONATHAN treated with BiPAP - Chronic; on home BiPAP, per RT recs 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 I discussed the case with the medical/AOC AADC OPERATIONS STAFF OFFICER/PA student and agree with the findings and [...] Present: No Family/Caregiver: Mother, Other (Specify) (Sister) Final Assembly And Packing Supervisor: Not Applicable Presentation Oxygen Therapy: None (Room [...] Mobility Bed Mobility Exam: Scooting/Bridging Level of [place]: Stand-by assist Physical/Nonphysical Assist: Supervision Assistive Device: Bed rails Bed Mobility Exam: Supine to Sit Level of [place]: Stand-by assist Physical/Nonphysical Assist: Supervision, HOB elevated Assistive Device: Bed rails Bed Mobility Exam: Sit to Supine Level of [place]: Contact guard Physical/Nonphysical Assist: Supervision, HOB elevated Assistive Device: Bed rails Transfers Transfer Exam: Sit to stand Level of [place]: Contact guard Physical/Nonphysical Assist: Supervision, Verbal Cues, Minimal cues Assistive Device: Rollator Transfer Exam: Stand to Sit Level of [place]: Stand-by assist Physical/Nonphysical Assist: Supervision, Verbal Cues, Minimal cues Assistive Device: Rollator Toilet Transfer Level of [place]: Contact guard Physical/Nonphysical Assist: Supervision, Verbal Cues, [...] Training Interventions: Cueing for upright posture, increased rogres and speed to match PT's pace. Assessment [...] Review Outcome: Ongoing, Progressing Flowsheets Taken 07/07/2025 040 Progress: improving Taken 07/06/2025 0403 Outcome Evaluation: [...] superimposed on stage 3b chronic kidney disease (Resolved 08/20/2025) - Completed albumin challenge on 07/03 - [...] agents * Assessment & Plan Note - Jluiane Rodriguez - 07/06/2025 11:50 AM EDTAssociated Problem(s): Cirrhosis of liver with ascites - Completed albumin challenge on 07/03 - [...] * Assessment & Plan Note - Juliane Rodirguez - 07/06/2025 11:50 AM EDTAssociated Problem(s): Pancytopenia [...] mellitus, with long-term current use of insulin - Glucose 128 PLAN - Continue Glargine 24 U daily + resistant SSI - Continue to monitor glucose trends * Assessment & Plan Note - Juliane Rodriguez - 07/06/2025 11:50 AM EDTAssociated Problem(s): Diabetic peripheral neuropathy - Glucose 128 PLAN - Continue Glargine 24 U daily + resistant SSI - Continue to monitor glucose trends * Assessment & Plan Note - Juliane Rodriguez - 07/06/2025 11:50 AM EDTAssociated Problem(s): Hypomagnesemia (Resolved 07/09/2025) - Mg 1.7 overnight - Patient received IV magnesium replacement PLAN - Continue magnesium oxide 400 mg daily - Check Levels Daily * Care Plan - Shawna Sarah - 07/06/2025 9:52 AM EDT Problem: Fall [...] and Support Renal Function Flowsheets (Taken 07/06/2025 0400 by Rochelle Xiong LPN) Stabilization Measures: legs elevated Medication Review/Management: medications reviewed * Assessment & Plan Note - Juliane Rodriguez - 07/06/2025 7:03 AM EDTAssociated Problem(s): Physical debility - Patient at this time has elected to pursue Provider Relations Representative Care placement and would like to speak [...] at this time has elected to pursue [facility] placement and would like to speak [...] at this time has elected to pursue Provider Relations Representative Care placement and would like to speak [...] AM EDTAssociated Problem(s): Chronic obstructive pulmonary disease - Chronic; on home BiPAP, per RT recs * Assessment & Plan Note - Juliane Rodriguez - 07/06/2025 7:03 AM EDTAssociated Problem(s): JONATHAN treated with BiPAP - Chronic; on home BiPAP, per RT recs * Assessment & Plan Note - Juliane Rodriguez - 07/06/2025 7:03 AM EDTAssociated Problem(s): 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 - Chronic; Continue to hold Crestor * [...] at this time has elected to pursue Provider Relations Representative Care placement and would like to speak with palliative care to learn more about their services - SW working to find LTC facility placement - palliative consulted PLAN - Delirium protocols - Continue Up to Chair TID, q4 turns - Ongoing GOC discussions Type 2 diabetes mellitus, with long-term current use of insulin (CMS/HCC) Diabetic peripheral neuropathy (CMS/[facility]) - Glucose 128 PLAN - Continue Glargine 24 U daily + resistant SSI - Continue to monitor glucose trends Dysphagia Heartburn - Reflux stable PLAN - Continue to hold omeprazole Serum ammonia increased ([facility]) - Last ammonia stable at 61 on 06/30 PLAN - Continue home Lactulose - Recheck ammonia if neurologic change suspected Hypomagnesemia - Mg 1.7 overnight - Patient received IV magnesium replacement PLAN - Continue magnesium oxide 400 mg daily - Check Levels Daily Chronic obstructive pulmonary disease ([facility]) JONATHAN treated with BiPAP - Chronic; on home BiPAP, per RT recs 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 I discussed the case with the medical/AOC AADC OPERATIONS STAFF OFFICER/PA student and agree with the findings and [...] off Intervention: Prevent Infection Flowsheets (Taken 07/06/2025 040) Infection Prevention: hand hygiene promoted Goal: Optimal [...] Fluid and Electrolyte Balance Flowsheets (Taken 07/06/2025 040) Fluid/Electrolyte Management: fluids restricted Goal: Improved Oral Intake Outcome: Ongoing, Progressing Intervention: Promote and Optimize Oral Intake Flowsheets (Taken 07/06/2025 040) Oral Nutrition Promotion: rest periods promoted Nutrition Interventions: frequent small meals provided Goal: Effective Renal Function Outcome: Ongoing, Progressing Intervention: Monitor and Support Renal Function Flowsheets (Taken 07/06/2025399) Stabilization Measures: legs elevated Medication Review/Management: medications reviewed * Progress Notes - Venessa Brown - 07/05/2025 2:21 PM EDT Case Management Adult Progress Note Monika Ordaz 64 y.o. female CSN: [id number] Admission: 06/25/2025 2:14 PM Primary Problem: Acute [...] chart. JHONNY sent updated PT/OT notes to [facility] to begin precert. JHONNY will [...] Present: Yes Family/Caregiver: Mother, Other (Specify) (sister) Final Assembly And Packing Supervisor: Not Applicable Presentation Oxygen Therapy: None (Room [...] Mobility Bed Mobility Exam: Scooting/Bridging Level of [place]: Stand-by assist (to EOB) Physical/Nonphysical Assist: Supervision Assistive Device: Bed rails Bed Mobility Exam: Supine to Sit Level of [place]: Minimum assist (75% patient's effort) Physical/Nonphysical Assist: Supervision, HOB elevated, Minimal cues, Verbal Cues Assistive Device: Bed rails, Other (POWERHOUSE MECHANIC SUPERVISOR) Transfers Transfer Exam: Sit to stand Level of [place]: Stand-by assist Physical/Nonphysical Assist: Supervision, Verbal Cues, Minimal cues Assistive Device: Rollator Transfer Exam: Stand to Sit Level of [place]: Stand-by assist Physical/Nonphysical Assist: Supervision, Verbal Cues, Minimal cues Assistive Device: Rollator Toilet Transfer Level of [place]: Stand-by assist Physical/Nonphysical Assist: Supervision, Minimal cues, [...] educated pt on the use of a leader writer for ease of donning pull ups and pants. Pt stated, I never thought of that, and expressed interest in purchasing a leader writer. Toileting Toileting Level of Assistance: SBA, Setup [...] superimposed on stage 3b chronic kidney disease (Resolved 08/20/2025) - Completed albumin challenge on 07/03 - [...] EDTAssociated Problem(s): Cirrhosis of liver with ascites - Completed albumin challenge on 07/03 - [...] mellitus, with long-term current use of insulin - Glucose 147 PLAN - Continue Glargine 24 U daily + resistant SSI - Continue to monitor glucose trends * Assessment & Plan Note - Juliane Rodriguez - 07/05/2025 1:06 PM EDTAssociated Problem(s): Diabetic peripheral neuropathy - Glucose 147 PLAN - Continue Glargine [...] Present: Yes Family/Caregiver: Mother, Other (Specify) (Sister) Final Assembly And Packing Supervisor: Not Applicable Presentation Oxygen Therapy: None (Room [...] Mobility Bed Mobility Exam: Scooting/Bridging Level of [place]: Stand-by assist Physical/Nonphysical Assist: Supervision Assistive Device: Bed rails Bed Mobility Exam: Supine to Sit Level of [place]: Stand-by assist Physical/Nonphysical Assist: Supervision, HOB elevated Assistive Device: Bed rails Bed Mobility Exam: Sit to Supine Level of [place]: Stand-by assist Physical/Nonphysical Assist: Supervision, Verbal Cues, HOB elevated, Minimal cues Assistive Device: Bed rails Transfers Transfer Exam: Sit to stand Level of [place]: Stand-by assist Physical/Nonphysical Assist: Supervision, Verbal Cues, Minimal cues Assistive Device: Rollator Transfer Exam: Stand to Sit Level of [place]: Stand-by assist Physical/Nonphysical Assist: Supervision, Verbal Cues, [...] at this time has elected to pursue Provider Relations Representative Care placement and would like to speak [...] at this time has elected to pursue Provider Relations Representative Care placement and would like to speak [...] at this time has elected to pursue Provider Relations Representative Care placement and would like to speak [...] AM EDTAssociated Problem(s): Chronic obstructive pulmonary disease - Chronic; on home BiPAP, per RT recs * Assessment & Plan Note - Juliane Rodriguez - 07/05/2025 8:28 AM EDTAssociated Problem(s): JONATHAN treated with BiPAP - Chronic; on home BiPAP, per RT recs * Assessment & Plan Note - Juliane Rodriguez - 07/05/2025 8:28 AM EDTAssociated Problem(s): 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 - Chronic; Continue to hold Crestor * [...] superimposed on stage 3b chronic kidney disease ([facility]/HCC) Chronic kidney disease, stage 3b (CMS/HCC) Cirrhosis of liver with ascites ([facility]/HCC) Hx of spontaneous bacterial peritonitis Pleural effusion [...] at this time has elected to pursue Provider Relations Representative Care placement and would like to speak with palliative care to learn more about their services - SW working to find LTC facility placement - palliative consulted PLAN - Delirium protocols - Continue Up to Chair TID, q4 turns - Ongoing GOC discussions Type 2 diabetes mellitus, with long-term current use of insulin ([facility]) Diabetic peripheral neuropathy ([facility]) - Glucose 147 PLAN - Continue Glargine 24 U daily + resistant SSI - Continue to monitor glucose trends Dysphagia Heartburn - Reflux stable PLAN - Continue to hold omeprazole Serum ammonia increased ([facility]) - Last ammonia stable at 61 on 06/30 PLAN - Continue home Lactulose - Recheck ammonia if neurologic change suspected Hypomagnesemia - Mg 1.8 overnight PLAN - Continue magnesium oxide 400 mg daily - Check Levels Daily Chronic obstructive pulmonary disease ([facility]) JONATHAN treated with BiPAP - Chronic; on home BiPAP, per RT recs 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 female CSN: [id number] Admission: 06/25/2025 2:14 PM Primary Problem: Acute [...] LTC. Pt would prefer to be near [place] due to her mother and sister being in [place]. JHONNY will continue to follow and assist. Venessa Brown * Assessment & Plan Note - Rebekah Segura MD - 07/04/2025 11:12 AM EDT Associated Problem(s): Acute kidney injury superimposed on stage 3b chronic kidney disease (Resolved 08/20/2025) - Completed albumin challenge on 07/03 - [...] Associated Problem(s): Cirrhosis of liver with ascites - Completed albumin challenge on 07/03 - [...] at this time has elected to pursue [facility] placement and would like to speak [...] at this time has elected to pursue [facility] placement and would like to speak [...] at this time has elected to pursue [facility] placement and would like to speak [...] mellitus, with long-term current use of insulin - Last POCT glucose 103 PLAN - Continue Glargine 24 U daily + resistant SSI - Continue to monitor glucose trends * Assessment & Plan Note - Rebekah Segura MD - 07/04/2025 9:28 AM EDT Associated Problem(s): Diabetic peripheral neuropathy - Last POCT glucose 103 PLAN - Continue Glargine 24 U daily + resistant SSI - Continue to monitor glucose trends * Assessment & Plan Note - Rebekah Segura MD - 07/04/2025 9:28 AM EDT Associated Problem(s): Dysphagia - Reflux stable PLAN - Continue to hold omeprazole * Assessment & Plan Note - Rebekah Sgeura MD - 07/04/2025 9:28 AM EDT Associated Problem(s): Heartburn - Reflux stable PLAN - Continue to hold omeprazole * Assessment & Plan Note - Rebekah Segura MD - 07/04/2025 9:28 AM EDT Associated Problem(s): Serum ammonia increased (CMS/HCC) - Last [...] EDT Associated Problem(s): Chronic obstructive pulmonary disease - Chronic; on home BiPAP, per RT recs * Assessment & Plan Note - Rebekah Segura MD - 07/04/2025 9:28 AM EDT Associated Problem(s): JONATHAN treated with BiPAP - Chronic; on home BiPAP, per RT recs * Assessment & Plan Note - Rebekah Segura MD - 07/04/2025 9:28 AM EDT Associated Problem(s): 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 Maria Dolores Ontiveros APRN, DNP Interventional Radiology [phone] [1] Past Medical History: Diagnosis Date ADHD (attention deficit hyperactivity disorder) Allergic Anxiety disorder, unspecified Anxiety Bleeding gums Blood in urine Cataract Chronic kidney disease Cirrhosis (CMS/HCC) Colon cancer screening 09/20/2019 Added automatically from request for surgery [id number] Coronary artery disease Depression 1996 Diabetes mellitus [...] 1979 BLADDER SURGERY N/A Bladder surgery from [facility] BREAST BIOPSY 2011 BREAST SURGERY 2010 BUNIONECTOMY Right CATARACT EXTRACTION Bilateral 2016 CHOLECYSTECTOMY 1979 ESOPHAGOGASTRODUODENOSCOPY HYSTERECTOMY N/A Hysterectomy from [facility] KNEE SURGERY Bilateral ORAL SURGERY N/A Oral surgery from [facility] OTHER SURGICAL HISTORY 2015 ROOT CANAL WISDOM TOOTH EXTRACTION [3] Social History Tobacco Use Smoking status: Never Passive exposure: Never Smokeless tobacco: Never Vaping Use Vaping status: Never Used Substance Use Topics Alcohol use: Not Currently Drug use: Never [4] No Known Allergies [5] Current Facility-Administered Medications: albumin human 25 % infusion 12.5 g, 12.5 g, Intravenous, q15 min PRN, Marianna Gordon, CHILD & ADOLESCENT PSYCHIATRIST benzonatate (Tessalon) capsule 100 mg, 100 mg, Oral, TID PRN, Veronica Del Valle DO bisacodyl (Dulcolax) suppository 10 mg, 10 mg, Rectal, Daily PRN, Siri Eatno MD calcitriol (Rocaltrol) capsule 0.25 mcg, 0.25 mcg, Oral, Daily, Blayne Ordaz DO, 0.25 mcg at 07/03/25 0935 calcium carbonate (Tums) chewable tablet 750 mg, 750 mg, Oral, Daily, Blayen Ordaz DO, 750 mg at07/03/25 0935 capsaicin (Zostrix) 0.025 % cream, , Topical, BID PRN, Blayne Ordaz DO cetirizine (ZyrTEC) tablet 10 mg, 10 mg, Oral, Daily, Blayne Ordaz, , 10 mg at 07/03/25 0935 cholecalciferol (Vitamin D-3) tablet 1,000 Units, 1,000 Units, Oral, Daily, Blayne Ordaz DO, 1,000 Units at 07/03/25 0935 ciprofloxacin (Cipro) tablet 500 mg, 500 mg, Oral, Daily, Blayne Ordaz DO, 500 mg at 07/03/25 0935 glucose [...] Blayne Ordaz DO, 20 g at 07/03/25 2142 lidocaine 1% in sodium bicarbonate (buffered lidocaine)10 mL, 10 mL, Infiltration, Once, Maria Dolores Ontiveros, CHILD & ADOLESCENT PSYCHIATRIST, DNP magnesium oxide (Mag-Ox) tablet 400 mg, 400 mg, Oral, Daily, Blayne Ordaz DO, 400 mg at 142 midodrine (Proamatine) tablet 15 mg, 15 mg, Oral, TID, Dayne Medel, DO, 15 mg at 07/04/25 0904 prochlorperazine (Compazine) tablet 5 mg, 5 mg, Oral, q6h PRN, Irvin Ball MD, 5 mg at 07/03/25 1330 rifAXIMin (Xifaxan) tablet 550 mg, 550 mg, Oral, BID, Blayne Ordaz DO, 550 mg at 07/03/25 2142 [COMPLETED] Insert peripheral IV, , , Once AND [COMPLETED] Saline lock IV, , , Once AND sodium chloride 0.9 % flush 10 mL, 10 mL, Intravenous, q12h, 10 mL at 07/03/25 1004 AND sodium chloride 0.9 % flush 10 mL, 10 mL, Intravenous, PRN, Blayne Ordaz DO Insert peripheral IV, , , Once [...] at this time has elected to pursue [facility] placement and would like to speak with palliative care to learn more about their services - SW working to find LTC facility placement - palliative consulted PLAN - Delirium protocols - Continue Up to Chair TID, q4 turns - Ongoing GOC discussions Type 2 diabetes mellitus, with long-term current use of insulin (CMS/HCC) Diabetic peripheral neuropathy ([facility]/HCC) - Last POCT glucose 103 PLAN - Continue Glargine 24 U daily + resistant SSI - Continue to monitor glucose trends Dysphagia Heartburn - Reflux stable PLAN - Continue to hold omeprazole Serum ammonia increased ([facility]/HCC) - Last ammonia stable at 61 on [...] per RT recs 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 (CMS/HCC) Hyperlipidemia [...] LTC Placement Rebekah Segura MD Psychiatry, PGY-1 [facility] Cosigned by Fabiana Cunningham MD [...] Identify and Manage Contributors Flowsheets (Taken 07/04/2025 0200) Medication Review/Management: medications reviewed Self-Care Promotion: independence [...] Identify and Manage Fall Risk Flowsheets (Taken 07/04/2025199) Safety Promotion/Fall Prevention: activity supervised assistive device/personal [...] maintained Intervention: Prevent Skin Injury Flowsheets (Taken 07/03/20251844) Body Position: turned Skin Protection: incontinence pads [...] Monitor and Support Renal Function Flowsheets (Taken 07/03/20251844) Stabilization Measures: legs elevated Medication Review/Management: medications [...] described in the palliative care note from 1315 today though not with the severity she [...] with clarification of goals of care PC steam trap man(s) at this encounter: Nurse Practitioner Requesting Service: [...] is no recent study available for direct [id number] comparison. 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 She is interested in completing Living will and HCS while here. Has several questions regarding selling property and her insurance. - [employer] AIDE TEACHER to complete living will -Will contact Case management Number and complexity of problems addressed is high, including acute illness or injury that poses athreat to life or bodily function. Risk of complications and/or morbidity or mortality of patient management is high due to need for hospitalization for stabilization and care. Palliative and Supportive Care Kandice Romano CHILD & ADOLESCENT PSYCHIATRIST # [id number] or Secure chat [1] Past Medical History: Diagnosis Date ADHD (attention deficit hyperactivity disorder) Allergic Anxiety disorder, unspecified Anxiety Bleeding gums Blood in urine Cataract Chronic kidney disease Cirrhosis (CMS/HCC) Colon cancer screening 09/20/2019 Added automatically from request for surgery [id number] Coronary artery disease Depression 1996 Diabetes mellitus [...] 1979 BLADDER SURGERY N/A Bladder surgery from [facility] BREAST BIOPSY 2011 BREAST SURGERY 2010 BUNIONECTOMY Right CATARACT EXTRACTION Bilateral 2016 CHOLECYSTECTOMY 1979 ESOPHAGOGASTRODUODENOSCOPY HYSTERECTOMY N/A Hysterectomy from [facility] KNEE SURGERY Bilateral ORAL SURGERY N/A Oral surgery from [facility] OTHER SURGICAL HISTORY 2015 ROOT CANAL WISDOM [...] Sister Lj Bernal Dementia Maternal Grandmother Christine Mayelin Alzheimer's disease Maternal Grandmother Christine Mayelin Emphysema Maternal Grandmother Christine Sanchezett No Known Problems Maternal Grandfather Kidney disease [...] currently undergoing evaluation for liver transplant. Decompensated [facility] Cirrhosis (POA) Ascites (POA) EV (POA) HE [...] she should keep her 08/20 appointment with [facility] - advised that she willstill need [...] capsule 2 ergocalciferol (Vitamin D-2) 1.25 MG (60570 UT) capsule Take 1 capsule by mouth [...] and inability to care for self. Ms. Ordaz is well known to IR, undergoing outpatient [...] - Any questions with scheduling please call [phone] - Please place orders for desired fluid studies to be sent for analysis prior to procedure Thank you for allowing us to participate in the care of this patient. Micheal Glasgow, CHILD & ADOLESCENT PSYCHIATRIST, DNP Interventional Radiology [phone] [1] Past Medical History: Diagnosis Date ADHD (attention deficit hyperactivity disorder) Allergic Anxiety disorder, unspecified Anxiety Bleeding gums Blood in urine Cataract Chronic kidney disease Cirrhosis (CMS/HCC) Colon cancer screening 09/20/2019 Added automatically from request for surgery [id number] Coronary artery disease Depression 1995 Diabetes mellitus [...] 1979 BLADDER SURGERY N/A Bladder surgery from [facility] BREAST BIOPSY 2011 BREAST SURGERY 2010 BUNIONECTOMY Right CATARACT EXTRACTION Bilateral 2016 CHOLECYSTECTOMY 1980 ESOPHAGOGASTRODUODENOSCOPY HYSTERECTOMY N/A Hysterectomy from [facility] KNEE SURGERY Bilateral ORAL SURGERY N/A Oral surgery from [facility] OTHER SURGICAL HISTORY 2015 ROOT CANAL WISDOM TOOTH EXTRACTION [3] Social History Tobacco Use Smoking status: Never Passive exposure: Never Smokeless tobacco: Never Vaping Use Vaping status: Never Used Substance Use Topics Alcohol use: Not Currently Drug use: Never [4] No Known Allergies [5] Current Facility-Administered Medications: albumin human 25 % infusion 12.5 g, 12.5 g, Intravenous, q15 min PRN, Marianna Gordon, CHILD & ADOLESCENT PSYCHIATRIST albumin human 25 % infusion 87.5 g, 1 g/kg, Intravenous, q24h, Dayne Medel R, DO, 87.5 g at 07/02/25 1227 benzonatate (Tessalon) capsule 100 mg, 100 mg, Oral, TID PRN, Veronica Del Valle K, DO calcitriol (Rocaltrol) capsule 0.25 mcg, 0.25 mcg, Oral, Daily, Blayne Ordaz DO, 0.25 mcg at 07/03/25 0935 calcium [...] Blayne Ordaz DO, 1,000 Units at 07/03/25 0935 ciprofloxacin (Cipro) [...] % flush 10 mL, 10 mL, Intravenous, NEYDA, Maria Dolores Ontiveros APRN, DNP * Consults - Yudith Coates RD - 07/03/2025 10:11 AM EDTAssociated Order(s): IP CONSULT TO NUTRITION SERVICES Adult Nutrition Evaluation Note Monika Ordaz 64 y.o. female CSN: [id number] Room/Bed 723/723A Nutrition evaluation type: follow-up Reason for evaluation: provider consult; pt request for diet education Hospital course: 64y/o female admitted 06/25 for CARLOTTA on CKD and inability to care for herself. Past medical/ surgical history: Past Medical History[1] Surgical History[2] Social history: None, no mandaen needs Additional comments: 07/03: Pt seen at [...] agreeable to snacks TID and trial of [place] Boost [facility] to meet increased nutrient needs. Provided [...] reading nutrition facts labels. Discussed how the [facility] she discharges to would likely monitor these nutrients in her diet to help manage her conditions. All questions/concerns addressed to pt satisfaction. Diet Education Provided: Will monitor Vitals and Basic Assessment: BP: 108/57 Temp: 36.7 ??C (98.1 ??F) Oxygen Therapy: None (Room air) O2 Delivery Method: CPAP/Bi-PAP mask [place] Coma Scale Score: 14 Edd Scale Score: [...] 30.12 Weight Evaluation: Obese-Class 1 (BMI 30-34.9) [place] Body Weight (kg): 56.8 Percent [place] Body Weight: 145 Adjusted Body Weight (kg): [...] oz) Estimated Needs: Kcal/ K-35 Kcal Provided: 9549-2028 Kcal Needs Based On: Adjusted weight (63 kg) Gm Protein/ Kg : 1.2-1.5 Protein Provided: 76-95 Protein Needs Based On: Adjusted weight (63 kg) Fluid Provided: 1 ml/kcal or per MD team Metabolic Cart Study Results: Current Nutrition Intake: Diet Supplements: None Diet Order: Adult Diet Diet Texture: Regular Adult Carbohydrate Restriction: Consistent CHO 2 (9164-3868 Deniz, 80 g/meal) Fat Restriction: (-) Electrolyte [...] greater menu options as elytes WNLs. Trial [place] Boost [facility] x 1 daily. Add Snacks [...] 09/20/2019 Added automatically from request for surgery [id number] Coronary artery disease Depression 1996 Diabetes mellitus [...] 1979 BLADDER SURGERY N/A Bladder surgery from [facility] BREAST BIOPSY 2011 BREAST SURGERY 2010 BUNIONECTOMY Right CATARACT EXTRACTION Bilateral 2016 CHOLECYSTECTOMY 1979 ESOPHAGOGASTRODUODENOSCOPY HYSTERECTOMY N/A Hysterectomy from [facility] KNEE SURGERY Bilateral ORAL SURGERY N/A Oral surgery from [facility] OTHER SURGICAL HISTORY 2015 ROOT CANAL WISDOM TOOTH EXTRACTION [3] albumin [...] capsule 2 ergocalciferol (Vitamin D-2) 1.25 MG (26605 UT) capsule Take 1 capsule by mouth [...] superimposed on stage 3b chronic kidney disease (Resolved 08/20/2025) - Creatinine 1.0-1.1 at baseline; Improved to [...] EDTAssociated Problem(s): Cirrhosis of liver with ascites - Creatinine 1.0-1.1 at baseline; Improved to [...] at this time has elected to pursue Provider Relations Representative Care placement and would like to speak [...] at this time has elected to pursue [facility] placement and would like to speak [...] at this time has elected to pursue Provider Relations Representative Care placement and would like to speak [...] mellitus, with long-term current use of insulin - Last POCT glucose 150 - 2 Units correction in last 24h none overnight PLAN - Continue Glargine 24 U daily + resistant SSI - Continue to monitor glucose trends * Assessment & Plan Note - Marcelo Pichardo - 07/03/2025 6:57 AM EDTAssociated Problem(s): Diabetic peripheral neuropathy - Last POCT glucose 150 - 2 [...] 6:57 AM EDTAssociated Problem(s): Serum ammonia increased ([facility]) - Last ammonia stable at 61 on [...] AM EDTAssociated Problem(s): Chronic obstructive pulmonary disease - Chronic; on home BiPAP, per RT recs * Assessment & Plan Note - Marcelo Pichardo - 07/03/2025 6:57 AM EDTAssociated Problem(s): JONATHAN treated with BiPAP - Chronic; on home BiPAP, per RT recs * Assessment & Plan Note - Marcelo Pichardo - 07/03/2025 6:57 AM EDTAssociated Problem(s): 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 [...] at this time has elected to pursue [facility] placement and would like to speak with palliative care to learn more about their services - L Leg discomfort is improved PLAN - Delirium protocols - Continue Up to Chair TID, q4 turns - SW to meet with patient to discuss options further - Consult Palliative care - Ongoing GOC discussions Type 2 diabetes mellitus, with long-term current use of insulin ([facility]) Diabetic peripheral neuropathy ([facility]) - Last POCT glucose 150 - 2 Units correction in last 24h none overnight PLAN - Continue Glargine 24 U daily + resistant SSI - Continue to monitor glucose trends Dysphagia Heartburn - Reflux stable PLAN - Continue to hold omeprazole Serum ammonia increased ([facility]) - Last ammonia stable at 61 on 06/30 PLAN - Continue home Lactulose - Recheck ammonia if neurologic change suspected Hypomagnesemia - Mg 2.0 today PLAN - Continue magnesium oxide 400 mg daily - Check Levels Daily Chronic obstructive pulmonary disease ([facility]) JONATHAN treated with BiPAP - Chronic; on home BiPAP, per RT recs 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 ([facility]) Hyperlipidemia - Chronic; Continue to hold Crestor [...] Progressing Intervention: Optimize Skin Protection Flowsheets (Taken 07/02/202510/2025) Activity Management: previous patient education reinforced Intervention: [...] 07/02/20251842) Oral Nutrition Promotion: rest periods promoted Goal: Effective Renal Function Outcome: Ongoing, Progressing Intervention: Monitor and Support Renal Function Flowsheets (Taken 07/02/20251842) Medication Review/Management: medications reviewed * Assessment & Plan Note - Marcelo Pichardo - 07/02/2025 5:19 PM EDTAssociated Problem(s): Acute kidney injury superimposed on stage 3b chronic kidney disease (Resolved 08/20/2025) - Creatinine 1.0-1.1 at baseline; worsened to [...] EDTAssociated Problem(s): Cirrhosis of liver with ascites - Creatinine 1.0-1.1 at baseline; worsened to [...] at this time has elected to pursue [facility] placement and would like to speak [...] at this time has elected to pursue Provider Relations Representative Care placement and would like to speak [...] at this time has elected to pursue [facility] placement and would like to speak [...] type 2 in obese (04/22/2015), Diabetic nephropathy (CMS/HCC), Dry mouth, GERD (gastroesophageal reflux disease), Headache, [...] (1979); Breast biopsy (2010); Cataract extraction (Bilateral, 2015); Bunionectomy (Right); Esophagogastroduodenoscopy; Other surgical history (2014); [place] tooth extraction; Breast surgery (2009); and Root canal. Precautions Medical Precautions: Fall precautions Subjective Pt agreeable to OT re-eval. Pt reported she feels weaker. Participants in Care Family/Caregiver Present: No Final Assembly And Packing Supervisor: Not Applicable Presentation Oxygen Therapy: None (Room [...] (Sister) Level of Mobility: Ambulatory- community Mobility [place]: Independent gait with device History of Falls: [...] Mobility Bed Mobility Exam: Scooting/Bridging Level of [place]: Stand-by assist Physical/Nonphysical Assist: Supervision Assistive Device: Bed rails Bed Mobility Exam: Supine to Sit Level of [place]: Stand-by assist Physical/Nonphysical Assist: Supervision, HOB elevated Assistive Device: Bed rails Transfers Transfer Exam: Sit to stand Level of [place]: Contact guard Physical/Nonphysical Assist: Supervision, Verbal Cues, Minimal cues Assistive Device: Rollator Transfer Exam: Stand to Sit Level of [place]: Stand-by assist Physical/Nonphysical Assist: Supervision, Verbal Cues, Minimal cues Assistive Device: Rollator Transfer Exam: Bed to Chair/Chair to Bed Level of [place]: Contact guard Physical/Nonphysical Assist: Supervision, Verbal Cues, Minimal cues Assistive Device: Rollator Toilet Transfer Level of [place]: Contact guard Physical/Nonphysical Assist: Supervision, Verbal Cues [...] use of toilet paper but needed to mailing manager order to clean [place] area and buttocks. Pt required extra time and rest breaks. Standardized Assessments [facility] 6-Click Daily Activities Help from Other: [...] type 2 in obese (04/22/2015), Diabetic nephropathy (CMS/HCC), Dry mouth, GERD (gastroesophageal reflux disease), Headache, [...] Bunionectomy (Right); Esophagogastroduodenoscopy; Other surgical history (2014); [place] tooth extraction; Breast surgery (2009); and Root canal. Precautions Medical Precautions: Fall precautions Subjective Pt agreeable to participating in session. States she is having an off day today. Participants in Care Family/Caregiver Present: No Final Assembly And Packing Supervisor: Not Applicable Presentation Oxygen Therapy: None (Room [...] (Sister) Level of Mobility: Ambulatory- community Mobility [place]: Independent gait with device History of Falls: [...] Mobility Bed Mobility Exam: Scooting/Bridging Level of [place]: Stand-by assist Physical/Nonphysical Assist: Supervision Assistive Device: Bed rails Bed Mobility Exam: Supine to Sit Level of [place]: Stand-by assist Physical/Nonphysical Assist: Supervision, HOB elevated Assistive Device: Bed rails Transfers Transfer Exam: Sit to stand Level of [place]: Contact guard Physical/Nonphysical Assist: Supervision, Verbal Cues, Minimal cues Assistive Device: Rollator Transfer Exam: Stand to Sit Level of [place]: Stand-by assist Physical/Nonphysical Assist: Supervision, Verbal Cues, Minimal cues Assistive Device: Rollator Toilet Transfer Level of [place]: Contact guard Physical/Nonphysical Assist: Supervision, Verbal Cues, [...] rest. Standardized Assessments Standardized Assessments Standardized Assessments: [facility] 6-Clicks Mobility Assessment [facility] 6-Clicks Mobility Assessment Difficulty patient has [...] 3-5 steps with a railing?: A little [facility] 6-Clicks Mobility Assessment Total : 23 [...] mellitus, with long-term current use of insulin - Last POCT glucose 115 - 6 Units correction in last 24h none overnight or today PLAN - Continue Glargine 24 U daily + resistant SSI - Continue to monitor glucose trends * Assessment & Plan Note - Marcelo Pichardo - 07/02/2025 9:13 AM EDTAssociated Problem(s): Diabetic peripheral neuropathy - Last POCT glucose 115 - 6 [...] AM EDTAssociated Problem(s): Chronic obstructive pulmonary disease - Chronic; on home BiPAP, per RT recs * Assessment & Plan Note - Marcelo Pichardo - 07/02/2025 9:13 AM EDTAssociated Problem(s): JONATHAN treated with BiPAP - Chronic; on home BiPAP, per RT recs * Assessment & Plan Note - Marcelo Pichardo - 07/02/2025 9:13 AM EDTAssociated Problem(s): 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 They also told patient she would need [...] ultimately decided she would like to pursue terminal superintendent care placement at this time. 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 She endorsed going to religion but believes no one will be able to help her from the religion. Edited by: Glenn Drake, CHILD & ADOLESCENT PSYCHIATRIST at 07/01/20251815 MELD 3.0: 23 at 07/01/2025 [...] 0 min Stress: Stress Concern Present (05/29/2025) [place] [place] [employer] - Occupational Stress Questionnaire Feeling of Stress: Very much Social Connections: Socially Isolated (05/29/2025) Social Connection and Isolation Panel Frequency of Communication with Friends and Family: More than three times a week Frequency of Social Gatherings with Friends and Family: Once a week Attends Caodaism Services: Never Active Member of Clubs or [...] - Pt [facility] about living in a [facility]. Pt is unable to be listed active on the transplant ifpermanent address is at a [facility]; rehabilitation is acceptable - Transplant surgery will [...] On insulin at home Edited by: Glenn Drake APRN at 07/01/2025 9512 Patient educated on transplant surgery evaluation process, [...] 09/20/2019 Added automatically from request for surgery [id number] Coronary artery disease Depression 1995 Diabetes mellitus [...] 1979 BLADDER SURGERY N/A Bladder surgery from [facility] BREAST BIOPSY 2011 BREAST SURGERY 2010 BUNIONECTOMY Right CATARACT EXTRACTION Bilateral 2016 CHOLECYSTECTOMY 1980 ESOPHAGOGASTRODUODENOSCOPY HYSTERECTOMY N/A Hysterectomy from [facility] KNEE SURGERY Bilateral ORAL SURGERY N/A Oral surgery from [facility] OTHER SURGICAL HISTORY 2014 ROOT CANAL WISDOM [...] disease Father Eliseo Singletary Kidney disease Father Elieso Singletary Depression Father Eliseo Singletary Hearing loss [...] Viral Ordaz Diabetes Son Viral Ordaz [4] No [...] tablet 3 ergocalciferol (Vitamin D-2) 1.25 MG (91261 UT) capsule Take 1 capsule by mouth [...] superimposed on stage 3b chronic kidney disease (Resolved 08/20/2025) - Creatinine 1.1-1.3 at baseline; Improved to [...] 3b (CMS/HCC) - Creatinine 1.1-1.3 at baseline; Improved [...] EDTAssociated Problem(s): Cirrhosis of liver with ascites - Creatinine 1.1-1.3 at baseline; Improved to [...] mellitus, with long-term current use of insulin - Last POCT glucose 257, received 6 units correction - Prior to this had received 6 Units correction in last 24h PLAN - Continue Glargine 24 U daily + resistant SSI - Continue to monitor glucose trends * Assessment & Plan Note - Marcelo Pichardo - 07/01/2025 1:24 PM EDTAssociated Problem(s): Diabetic peripheral neuropathy - Last POCT glucose 257, received 6 [...] though not on medication - Stopped seeing head bookkeeper after being dismissed for missing too many [...] though not on medication - Stopped seeing head bookkeeper after being dismissed for missing too many appointments - Blood smear results pancytopenia not morphologically distinct PLAN - Continue to monitor - Continue Heparin for DVT prophylaxis - Rheumatology referral outpatient * Progress Notes - Venessa Brown - 07/01/2025 11:06 AM EDT Case Management Adult Progress Note Monika Ordaz 64 y.o. female CSN: [id number] Admission: 06/25/2025 2:14 PM Primary Problem: Acute kidney injury superimposed on stage 3b chronic kidney disease (CMS/[facility]) Additional Comments JHONNY met with the Family Medicine team to discuss pts POC. Pt is getting close to being medically ready for discharge. JHONNY met with pt at bedside. SW reviewed [...] IM Order: Yes Consult Requested By: Nurse/ CHILD & ADOLESCENT PSYCHIATRIST Reason for IM Consult: Emotional Symptoms Contact [...] lyrics Comments: Comments: Pt receptive and welcomed KS- and actively engaged for duration of session by choosing songs, listening to music, and reminiscing about her time living in [facility]. Pt talked about singingin choir at school [...] significant concern and would prefer JOHN or intermediate manager care pending influence on ability to receive transplant - Patient endorsing some burning discomfort that begins in buttocks and radiates down lateral leg, does not feel as though she is getting moved much - Concerned with possible disorientation PLAN - Transplant service to evaluate today and determine if intermediate manager care would be a barrier to futureliver transplant - Delirium protocols - Up to Chair TID, q4 turns * Assessment & Plan Note - Marcelo Pichardo - 07/01/2025 9:16 AM EDTAssociated Problem(s): Self-care deficit - PTOT recs home health - Patient and family have significant concern and would prefer JOHN or intermediate manager care pending influence on ability to receive transplant - Patient endorsing some burning discomfort that begins in buttocks and radiates down lateral leg, does not feel as though she is getting moved much - Concerned with possible disorientation PLAN - Transplant service to evaluate today and determine if intermediate manager care would be a barrier to futureliver [...] significant concern and would prefer JOHN or fpc care pending influence on ability to receive transplant - Patient endorsing some burning discomfort that begins in buttocks and radiates down lateral leg, does not feel as though she is getting moved much - Concerned with possible disorientation PLAN - Transplant service to evaluate today and determine if fpc care would be a barrier to futureliver transplant - Delirium protocols - Up to Chair TID, q4 turns * Assessment & Plan Note - Marcelo Pichardo - 07/01/2025 8:17 AM EDTAssociated Problem(s): Chronic obstructive pulmonary disease - Chronic; on home BiPAP, per RT recs * Assessment & Plan Note - Marcelo Pichardo - 07/01/2025 8:17 AM EDTAssociated Problem(s): JONATHAN treated with BiPAP - Chronic; on home BiPAP, per RT recs * Assessment & Plan Note - Marcelo Pichardo - 07/01/2025 8:17 AM EDTAssociated Problem(s): 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 Denies headache, fever, chest pain, vomiting, syncope, [...] medications and avoid nephrotoxic agents Other neutropenia ([facility]) (Resolved: 07/01/2025) Pancytopenia - WBC 3.15 (baseline 4.0) with 1.79 absolute neutrophils, neutropenia resolved today - RBC 2.81 (baseline 3.0), platelets 47 (baseline 55) - Stable up trending toward baseline overall - Patient has a history of SLE on chart review JORDAN positive though not on medication - Stopped seeing head bookkeeper after being dismissed for missing too many appointments - Blood smear results pancytopenia not morphologically distinct PLAN - Continue to monitor - Continue Heparin for DVT prophylaxis - Rheumatology referral outpatient 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 - PTOT recs home health - Patient and family have significant concern and would prefer JOHN or fpc care pending influence on ability to receive transplant - Patient endorsing some burning discomfort that begins in buttocks and radiates down lateral leg, does not feel as though she is getting moved much - Concerned with possible disorientation PLAN - Transplant service to evaluate today and determine if intermediate manager care would be a barrier to futureliver transplant - Delirium protocols - Up to Chair TID, q4 turns Type 2 diabetes mellitus, with long-term current use of insulin ([facility]) Diabetic peripheral neuropathy ([facility]) - Last POCT glucose 257, received 6 units correction - Prior to this had received 6 Units correction in last 24h PLAN - Continue Glargine 24 U daily + resistant SSI - Continue to monitor glucose trends Dysphagia Heartburn - Reflux stable PLAN - Continue to hold omeprazole Serum ammonia increased ([facility]) - Last ammonia stable at 61 on 06/30 PLAN - Continue home Lactulose - Recheck ammonia if neurologic change suspected Hypomagnesemia - Stable at 1.9 PLAN - Continue magnesium oxide 400 mg daily - Check Levels Daily Chronic obstructive pulmonary disease (CMS/HCC) JONATHAN treated with BiPAP - Chronic; on home BiPAP, per RT recs 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 (CMS/HCC) Hyperlipidemia [...] Full Code SOCIAL: Lives with sister in [facility] PT/OT: recommendations: Home with Home Health Consultants: PTOT Nutrition Hepatology Nephrology IR Transplant Disposition: Medically Ready for Discharge:Anticipated in 2-4 Days [] CARL[place]TA Resolution [] Placement [] Transplant team evaluation Marcelo Pichardo, MS4 Cosigned by Fabiana Cunningham MD at 07/01/2025 8:09 PM EDT Associated attestation - Fabiana Cunnignham MD - 07/01/2025 8:09 PM EDT I [...] superimposed on stage 3b chronic kidney disease (Resolved 08/20/2025) - Creatinine 1.1-1.3 at baseline; slight increase [...] - Continue daily vit D 1000 U; 23508 U to be ordered on 06/30 if [...] - Continue daily vit D 1000 U; 66159 U to be ordered on 06/30 if still admitted - Renally dose medications and avoid nephrotoxic agents * Assessment & Plan Note - Veronica Del Valle DO - 06/30/2025 1:48 PM EDT Associated Problem(s): Cirrhosis of liver with ascites - Creatinine 1.1-1.3 at baseline; slight increase [...] - Continue daily vit D 1000 U; 82203 U to be ordered on 06/30 if still admitted - Renally dose medications and avoid nephrotoxic agents * Assessment & Plan Note - Veronica eDl Valle DO - 06/30/2025 1:48 PM EDT [...] - Continue daily vit D 1000 U; 60687 U to be ordered on 06/30 if [...] - Continue daily vit D 1000 U; 30372 U to be ordered on 06/30 if [...] - Continue daily vit D 1000 U; 57683 U to be ordered on 06/30 if [...] recommended home health; patient and family requested jail facility PLAN - Contacted transplant service to [...] recommended home health; patient and family requested jail facility PLAN - Contacted transplant service to determine if placement is a barrier to future liver transplant; transplant ANAYA will come tomorrow to discuss options with patient * Assessment & Plan Note - Veronica Del Valle DO - 06/30/2025 1:48 PM EDT Associated Problem(s): Type 2 diabetes mellitus, with long-term current use of insulin - Last POCT glucose 128 - Received 10 units correction in past 24hrs - Hypoglycemia precautions ordered due to reported hypoglycemia at home PLAN - Continue Glargine 24 U daily + resistant SSI - Continue to monitor glucose trends * Assessment & Plan Note - Veronica Del Valle DO - 06/30/2025 1:48 PM EDT Associated Problem(s): Diabetic peripheral neuropathy - Last POCT glucose 128 - Received 10 units correction in past 24hrs - Hypoglycemia precautions ordered due to reported hypoglycemia at home PLAN - Continue Glargine 24 U daily + resistant SSI - Continue to monitor glucose trends * Assessment & Plan Note - Veronica Del Valle DO - 06/30/2025 1:48 PM EDT Associated Problem(s): Dysphagia - 06/28 CASUALTY INSURANCE CLAIM ADJUSTER diet recommendations; see below - Patient continues to eat full diet without difficulty PLAN - Continue to hold omeprazole * Assessment & Plan Note - Veronica Del Valle DO - 06/30/2025 1:48 PM EDT Associated Problem(s): Heartburn - 06/28 CASUALTY INSURANCE CLAIM ADJUSTER diet recommendations; see below - Patient continues to eat full diet without difficulty PLAN - Continue to hold omeprazole * Assessment & Plan Note - Veronica Del Valle DO - 06/30/2025 1:48 PM EDT Associated Problem(s): 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 - Chronic; Continue to hold Crestor * [...] EDT Associated Problem(s): Chronic obstructive pulmonary disease - Chronic; on home BiPAP, per RT [...] - Continue daily vit D 1000 U; 10766 U to be ordered on 06/30 if [...] recommended home health; patient and family requested jail facility PLAN - Contacted transplant service to determine if placement is a barrier to future liver transplant; transplant ANAYA will come tomorrow to discuss options with patient Type 2 diabetes mellitus, with long-term current use of insulin (CMS/HCC) Diabetic peripheral neuropathy (CMS/HCC) - Last POCT glucose 128 - Received 10 units correction in past 24hrs - Hypoglycemia precautions ordered due to reported hypoglycemia at home PLAN - Continue Glargine 24 U daily + resistant SSI - Continue to monitor glucose trends Dysphagia Heartburn - 06/28 CASUALTY INSURANCE CLAIM ADJUSTER diet recommendations; see below - Patient continues to eat full diet without difficulty PLAN - Continue to hold omeprazole Serum ammonia increased (CMS/HCC) - 06/30 Ammonia [...] if remains low Chronic obstructive pulmonary disease (CMS/HCC) JONATHAN treated with BiPAP - Chronic; on home BiPAP, per RT recs 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 PT/OT: consulted, appreciate recommendations Consultants: PT/OT, nutrition, hepatology, nephrology, IR Disposition: Medically Ready for Discharge:Anticipated in 2-4 Days [] CARLOTTA resolution [] Placement Veronica Del Valle DO, Family Medicine, PGY-1 [facility] Cosigned by Fabiana Cunningham MD at 06/30/2025 3:43 PM EDT Associated attestation - Fabiana Cunningham MD - 06/30/2025 3:43 PM EDT I saw and evaluated the patient with the resident/fellow. I discussed the case with the resident/fellow and agree with the findings and plan as documented. Fabiana Cunningham MD * Care Plan - Gavin Mathew, PARK - 06/29/2025 8:47 PM EDT Problem: Fall [...] Care Flowsheets (Taken 06/29/2025 1209 by Stefania Bermeo RN) Trust Relationship/Rapport: care explained choices provided emotional support provided Problem: Acute Kidney Injury/Impairment Goal: Fluid and Electrolyte Balance Outcome: Ongoing, Progressing Intervention: Monitor and Manage Fluid and Electrolyte Balance Flowsheets (Taken 06/28/2025 1336 by Aubrey Eason LPN) Fluid/Electrolyte Management: fluids provided Goal: Improved Oral Intake Outcome: Ongoing, Progressing Intervention: Promote and Optimize Oral Intake Flowsheets Taken 06/29/2025 1209 by Stefania Bermeo, RN Oral Nutrition Promotion: nutrition counseling provided Taken 06/28/2025 1240 by Aubrey Eason LPN Nutrition Interventions: frequent small meals provided Goal: Effective Renal Function Outcome: Ongoing, Progressing Intervention: Monitor and Support Renal Function Flowsheets Taken 06/29/2025 1209 by Stefania Bermeo, classification control clerk Review/Management: medications reviewed Taken 06/28/20252026 by Gavin Mathew, RN Stabilization Measures: legs elevated * Assessment & Plan Note - Juliane Rodriguez - 06/29/2025 12:33 PM EDTAssociated Problem(s): Acute kidney injury superimposed on stage 3b chronic kidney disease (Resolved 08/20/2025) - Creatinine 1.1-1.3 at baseline; improved to [...] - Continue daily vit D 1000 U; 14741 U to be ordered on 06/30 if [...] - Continue daily vit D 1000 U; 88166 U to be ordered on 06/30 if still admitted - Renally dose medications and avoid nephrotoxic agents * Assessment & Plan Note - Juliane Rodriguez - 06/29/2025 12:33 PM EDTAssociated Problem(s): Cirrhosis of liver with ascites - Creatinine 1.1-1.3 at baseline; improved to [...] - Continue daily vit D 1000 U; 07191 U to be ordered on 06/30 if [...] - Continue daily vit D 1000 U; 90566 U to be ordered on 06/30 if [...] - Continue daily vit D 1000 U; 74315 U to be ordered on 06/30 if [...] - Continue daily vit D 1000 U; 15192 U to be ordered on 06/30 if [...] mellitus, with long-term current use of insulin - Last POCT glucose 144 - Received 0U correction this morning - Hypoglycemia precautions ordered due to reported hypoglycemia at home PLAN - Continue Glargine 24 U daily + resistant SSI - Continue to monitor glucose trends * Assessment & Plan Note - Juliane Rodriguez - 06/29/2025 12:33 PM EDTAssociated Problem(s): Diabetic peripheral neuropathy - Last POCT glucose 144 - Received 0U correction this morning - Hypoglycemia precautions ordered due to reported hypoglycemia at home PLAN - Continue Glargine 24 U daily + resistant SSI - Continue to monitor glucose trends * Assessment & Plan Note - Juliane Rodriguez - 06/29/2025 12:33 PM EDTAssociated Problem(s): Dysphagia - CASUALTY INSURANCE CLAIM ADJUSTER attempted to see patient 06/27; was in procedure - 06/28 CASUALTY INSURANCE CLAIM ADJUSTER diet recommendations: IDDSI Level 7 - Regular and IDDSI Level 0- Thin PLAN - Continue to hold omeprazole * Assessment & Plan Note - Juliane Rodriguez - 06/29/2025 12:33 PM EDTAssociated Problem(s): Heartburn - CASUALTY INSURANCE CLAIM ADJUSTER attempted to see patient 06/27; was in procedure - 06/28 CASUALTY INSURANCE CLAIM ADJUSTER diet recommendations: IDDSI Level 7 - Regular and IDDSI Level 0- Thin PLAN - Continue to hold omeprazole * Assessment & Plan Note - Juliane Rodriguez - 06/29/2025 12:33 PM EDTAssociated Problem(s): Hypomagnesemia (Resolved 07/09/2025) - 1.6 on admission; Stable at 1.8 06/29 - Given 2g mag IV on 8/7 PLAN - Continue magnesium oxide 400 mg [...] Intervention: Identify and Manage Contributors Flowsheets (Taken 06/29/20251208) Medication Review/Management: medications reviewed Intervention: Promote Injury-Free Environment Flowsheets (Taken 06/29/20251208) Safety Promotion/Fall Prevention: fall [...] Progressing Intervention: Provide Person-Centered Care Flowsheets (Taken 06/29/2025 1209) Trust Relationship/Rapport: care explained choices provided emotional support provided Problem: Acute Kidney Injury/Impairment Goal: Fluid and Electrolyte Balance Outcome: Ongoing, Progressing Goal: Improved Oral Intake Outcome: Ongoing, Progressing Intervention: Promote and Optimize Oral Intake Flowsheets (Taken 06/29/2025 1209) Oral Nutrition Promotion: nutrition counseling provided Goal: [...] recommended home health; patient and family requested jail facility PLAN - Plan for placement in long-term care * Assessment & Plan Note - Juliane Rodriguez - 06/29/2025 11:21 AM EDTAssociated Problem(s): Self-care deficit - Patient reports poor PO intake at home in s/o large-volume ascites - Family involved in and amenable to discussion of placement; concerned for declining ability to perform ADLs - PT/OT recommended home health; patient and family requested jail facility PLAN - Plan for placement in long-term care * Assessment & Plan Note - Juliane Rodriguez - 06/29/2025 11:21 AM EDTAssociated Problem(s): Chronic obstructive pulmonary disease - Chronic; on home BiPAP, per RT recs * Assessment & Plan Note - Juliane Rodriguez - 06/29/2025 11:21 AM EDTAssociated Problem(s): JONATHAN treated with BiPAP - Chronic; on home BiPAP, per RT recs * Assessment & Plan Note - Juliane Rodriguez - 06/29/2025 11:21 AM EDTAssociated Problem(s): 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 Discussed fpc care placement vs home. She is concerned [...] that her transplant team may frown upon intermediate manager care. She does not want to spend [...] - Continue daily vit D 1000 U; 56223 U to be ordered on 06/30 if still admitted - Renally dose medications and avoid nephrotoxic agents Other neutropenia (CMS/HCC) Pancytopenia - WBC 2.22 (baseline 4.0) with [...] recommended home health; patient and family requested jail facility PLAN - Plan for placement in long-term care Type 2 diabetes mellitus, with long-term current use of insulin (CMS/HCC) Diabetic peripheral neuropathy (CMS/HCC) - Last POCT glucose 144 - Received 0U correction this morning - Hypoglycemia precautions ordered due to reported hypoglycemia at home PLAN - Continue Glargine 24 U daily + resistant SSI - Continue to monitor glucose trends Dysphagia Heartburn - CASUALTY INSURANCE CLAIM ADJUSTER attempted to see patient 06/27; was in procedure - 06/28 CASUALTY INSURANCE CLAIM ADJUSTER diet recommendations: IDDSI Level 7 - Regular and IDDSI Level 0- Thin PLAN - Continue to hold omeprazole Chronic obstructive pulmonary disease (CMS/HCC) JONATHAN treated with BiPAP - Chronic; on home BiPAP, per RT recs 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 PT/OT: consulted, appreciate recommendations Consultants: PT/OT, Nutrition, Hepatology, Nephrology, IR Disposition: Medically Ready for Discharge:Anticipated in 2-4 Days [] CARLOTTA resolution [] Placement Juliane Rodriguez, MS4 Cosigned by Fabiana Cunningham [...] superimposed on stage 3b chronic kidney disease (Resolved 08/20/2025) - Creatinine 1.1-1.3 at baseline; improved to [...] - Continue daily vit D 1000 U; 81423 U to be ordered on 06/30 if [...] - Continue daily vit D 1000 U; 77706 U to be ordered on 06/30 if still admitted - Renally dose medications and avoid nephrotoxic agents * Assessment & Plan Note - Chilo Morales MD - 06/29/2025 8:30 AM EDT Associated Problem(s): Cirrhosis of liver with ascites - Creatinine 1.1-1.3 at baseline; improved to [...] - Continue daily vit D 1000 U; 87826 U to be ordered on 06/30 if [...] - Continue daily vit D 1000 U; 75079 U to be ordered on 06/30 if [...] - Continue daily vit D 1000 U; 30348 U to be ordered on 06/30 if [...] - Continue daily vit D 1000 U; 76234 U to be ordered on 06/30 if [...] recommended home health; patient and family requested jail facility PLAN - Plan for placement in [...] recommended home health; patient and family requested jail facility PLAN - Plan for placement in long-term care * Assessment & Plan Note - Chilo Morales MD - 06/29/2025 8:30 AM EDT Associated Problem(s): Type 2 diabetes mellitus, with long-term current use of insulin - Last POCT glucose 151 (before receiving 24U) - Received 2U correction this morning - Hypoglycemia precautions ordered due to reported hypoglycemia at home PLAN - Continue Glargine 24 U daily + resistant SSI - Continue to monitor glucose trends * Assessment & Plan Note - Chilo Morales MD - 06/29/2025 8:30 AM EDT Associated Problem(s): Diabetic peripheral neuropathy - Last POCT glucose 151 (before receiving 24U) - Received 2U correction this morning - Hypoglycemia precautions ordered due to reported hypoglycemia at home PLAN - Continue Glargine 24 U daily + resistant SSI - Continue to monitor glucose trends * Assessment & Plan Note - Chilo Morales MD - 06/29/2025 8:30 AM EDT Associated Problem(s): Dysphagia - CASUALTY INSURANCE CLAIM ADJUSTER attempted to see patient 8/7; was in procedure PLAN - Awaiting CASUALTY INSURANCE CLAIM ADJUSTER eval - Continue to hold omeprazole * Assessment & Plan Note - Chilo Morales MD - 06/29/2025 8:30 AM EDT Associated Problem(s): Heartburn - CASUALTY INSURANCE CLAIM ADJUSTER attempted to see patient 8/7; was in procedure PLAN - Awaiting CASUALTY INSURANCE CLAIM ADJUSTER eval - Continue to hold omeprazole * Assessment & Plan Note - Chilo Morales MD - 06/29/2025 8:30 AM EDT Associated Problem(s): Chronic obstructive pulmonary disease - Chronic; on home BiPAP, per RT recs * Assessment & Plan Note - Chilo Morales MD - 06/29/2025 8:30 AM EDT Associated Problem(s): JONATHAN treated with BiPAP - Chronic; on home BiPAP, per RT recs * Assessment & Plan Note - Chilo Morales MD - 06/29/2025 8:30 AM EDT Associated Problem(s): 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 Pt passed the [place] Swallow Protocol suggesting low risk of aspiration. [...] Thin Therapy Frequency: PRN for DT Goals Provider Relations Representative Goal Monika Ordaz will maintain adequate hydration/nutrition [...] 3b (CMS/HCC) ??? 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 [...] 09/20/2019 Added automatically from request for surgery [id number] ??? Coronary artery disease ??? Depression 1996 [...] ??? BLADDER SURGERY N/A Bladder surgery from [facility] ??? BREAST BIOPSY 2010 ??? BREAST SURGERY 2009 ??? BUNIONECTOMY Right ??? CATARACT EXTRACTION Bilateral 2015 ??? CHOLECYSTECTOMY 1980 ??? ESOPHAGOGASTRODUODENOSCOPY ??? HYSTERECTOMY N/A Hysterectomy from [facility] ??? KNEE SURGERY Bilateral ??? ORAL SURGERY N/A Oral surgery from [facility] ??? OTHER SURGICAL HISTORY 2014 ??? ROOT [...] - Continue daily vit D 1000 U; 29369 U to be ordered on 06/30 if still admitted - Renally dose medications and avoid nephrotoxic agents Other neutropenia ([facility]) Pancytopenia - WBC 1.69 (baseline 4.0) with [...] recommended home health; patient and family requested jail facility PLAN - Plan for placement in long-term care Type 2 diabetes mellitus, with long-term current use of insulin ([facility]/HCC) Diabetic peripheral neuropathy ([facility]/HCC) - Last POCT glucose 151 (before receiving 24U) - Received 2U correction this morning - Hypoglycemia precautions ordered due to reported hypoglycemia at home PLAN - Continue Glargine 24 U daily + resistant SSI - Continue to monitor glucose trends Dysphagia Heartburn - CASUALTY INSURANCE CLAIM ADJUSTER attempted to see patient 06/27; was in procedure PLAN - Awaiting CASUALTY INSURANCE CLAIM ADJUSTER eval - Continue to hold omeprazole Chronic obstructive pulmonary disease ([facility]) JONATHAN treated with BiPAP - Chronic; on home BiPAP, per RT recs 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 PT/OT: consulted, appreciate recommendations Consultants: PT/OT, nutrition, hepatology, nephrology, IR Disposition: Medically Ready for Discharge: Anticipated in 2-4 Days [] CARLOTTA resolution [] Placement Veronica Del Valle DO, Family Medicine, PGY-1 [facility] Cosigned by Chilo Morales MD [...] superimposed on stage 3b chronic kidney disease (Resolved 08/20/2025) - MELD 3.0: 26 on 06/27 - [...] - Continue daily vit D 1000 U; 79112 U to be ordered on 06/30 if [...] - Continue daily vit D 1000 U; 44486 U to be ordered on 06/30 if still admitted - Renally dose medications and avoid nephrotoxic agents * Assessment & Plan Note - Chilo Morales MD - 06/27/2025 3:08 PM EDT Associated Problem(s): Cirrhosis of liver with ascites - MELD 3.0: 26 on 06/27 - [...] - Continue daily vit D 1000 U; 71489 U to be ordered on 06/30 if [...] - Continue daily vit D 1000 U; 99449 U to be ordered on 06/30 if [...] - Continue daily vit D 1000 U; 29619 U to be ordered on 06/30 if [...] - Continue daily vit D 1000 U; 81559 U to be ordered on 06/30 if [...] consulted; recs appreciated - Patient agreeable to jail facility * Assessment & Plan Note - [...] consulted; recs appreciated - Patient agreeable to jail facility * Assessment & Plan Note - Chilo Morales MD - 06/27/2025 3:08 PM EDT Associated Problem(s): Type 2 diabetes mellitus, with long-term current use of insulin - BG 245 on arrival; last POCT [...] PM EDT Associated Problem(s): Diabetic peripheral neuropathy - BG 245 on arrival; last POCT [...] - Continue to hold omeprazole - Ordered CASUALTY INSURANCE CLAIM ADJUSTER consult; appreciate recommendations * Assessment & Plan Note - Chilo Morales MD - 06/27/2025 3:08 PM EDT Associated Problem(s): Heartburn - Chronic; advised to hold home omeprazole at most recent nephrology appointment due to concern forAKI PLAN - Continue to hold omeprazole - Ordered CASUALTY INSURANCE CLAIM ADJUSTER consult; appreciate recommendations * Assessment & Plan Note - Chilo Morales MD - 06/27/2025 3:08 PM EDT Associated Problem(s): Chronic obstructive pulmonary disease - Chronic; on BiPAP nightly at home [...] EDT Associated Problem(s): 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 female CSN: [id number] Admission: 06/25/2025 2:14 PM Primary Problem: Acute kidney injury superimposed on stage 3b chronic kidney disease (CMS/HCC) Additional Comments SW met with the Family Medicine team to review pts POC. Pts recommendations from PT/OT are home with 24 hour care and home health. Pt told SW in her meeting yesterday that she will not be able to return to her sisters home in [place] and her son is not able to [...] to care for self. On arrival to [facility], patient promptly evaluated by FM Team. [...] vit D 1000 U was continued. Weekly 02931 vit D was not resumed during hospital [...] off oftransplant list in favor of pursuing intermediate manager care placement. MELD improved to 21. #Other neutropenia #Pancytopenia Baseline WBC is 4.0 and baseline RBC was 3.0. Most recent WBC was 3.24 with 1.84 absolute neutrophils and most recent RBC was 2.67. Labs were monitored throughout the patient's hospital stay. [id number] was initiated for DVT prophylaxis. Blood smear [...] patient was amenable to going to a jail facility. 06/28, patient had an episode of [...] nephrology appointment due to concern for CARLOTTA. CASUALTY INSURANCE CLAIM ADJUSTER consult ordered. CASUALTY INSURANCE CLAIM ADJUSTER saw patient and determined no overt s/s [...] % * Clinician Note - Laura Garcia CCC-CASUALTY INSURANCE CLAIM ADJUSTER - 06/27/2025 1:22 PM EDT Speech Language Pathology - Attempt Patient Name: Monika Ordaz Age: 64 y.o. Today's Date: 06/27/2025 Chart review completed. Attempted to see patient today for clinical swallow evaluation x2. Pt out of room for procedure. CASUALTY INSURANCE CLAIM ADJUSTER team to follow up as schedule allows. * Consults - Delfin Gibson - 06/27/2025 1:00 PM EDT Pastoral Care Note Airplane Captain visited with Monika, her mother and sister. [...] concerns for organ donors and their families. Airplane Captain listened empathetically, provided emotional and spiritual support for Monika and her family. Referral From: Airplane Captain Initiated Pastoral Care Provided For: Patient, Parent(s), Sibling(s) Patient Profile: Consult Reasons: Initial visit Spiritual Assessment: Support Systems/ Spiritual Resources: Nicolasa, Family, Prayer Spiritual Needs: Emotional support, Prayer, Spiritual support Spiritual Issues: Chronic pain/ illness, Family concerns, Change/ transition, Critical Illness Interventions: Interventions Provided: Identify mandaen/ spiritual coping, Prayer, Spiritual support, Emotional support, Family support, Introduced Patient/Family to Airplane Captain Services, Supportive Listening, Consulted with care team Pastoral Care Outcomes: Patient Outcomes: Demonstrates lower level of Anxious(ness), Communicates increased satisfaction with hospital experience, Appreciative of Airplane Captain Support, Gratitude, Expresses intent to participate/comply in plan of care, Demonstrates and/or verbalizes increased comfort * Post-Procedure Note - Marianna Gordon APRN - 06/27/2025 10:07 AM EDT Vascular and Interventional Radiology Brief Postprocedure Note Performed by: Marianna Gordon APRN Show Design Supervisor: LOUISE Pre-operative Diagnosis: right pleural effusion [...] 06/27/2025 9:55 AM EDT Pastoral Care Note Airplane Captain attempted to visit with Monika. She was out of the room, no family present at this time. Airplane Captain consulted with care team and will follow up as able. Referral From: Airplane Captain Initiated Pastoral Care Provided For: Patient Patient [...] [will perform inpatient]. Of note, patient with ACRLOTTA in regard to albumin administration. - Primary team to order any labs requested for analysis. - Please make NPO after midnight evening prior. - Hold anticoagulation. - Will consent prior to procedure. - Any questions with scheduling please call [phone] Thank you for allowing us to participate in the care of this patient. Marianna Gordon, CHILD & ADOLESCENT PSYCHIATRIST Interventional Radiology [id number] [1] Past Medical History: Diagnosis Date ADHD (attention deficit hyperactivity disorder) Allergic Anxiety disorder, unspecified Anxiety Bleeding gums Blood in urine Cataract Chronic kidney disease Cirrhosis (CMS/HCC) Colon cancer screening 09/20/2019 Added automatically from request for surgery [id number] Coronary artery disease Depression 1996 Diabetes mellitus [...] 1979 BLADDER SURGERY N/A Bladder surgery from [facility] BREAST BIOPSY 2011 BREAST SURGERY 2010 BUNIONECTOMY Right CATARACT EXTRACTION Bilateral 2016 CHOLECYSTECTOMY 1980 ESOPHAGOGASTRODUODENOSCOPY HYSTERECTOMY N/A Hysterectomy from [facility] KNEE SURGERY Bilateral ORAL SURGERY N/A Oral surgery from [facility] OTHER SURGICAL HISTORY 2015 ROOT CANAL WISDOM [...] Blayne Ordaz DO, 6 Units at 06/26/25 1716 insulin lispro (Admelog) injection - Correction - Nighttime Dose, 0-3 Units, Subcutaneous, Twice atnight, Blayne Ordaz, lactulose (Chronulac) 10 GM/15ML solution 20 g, 20 g, Oral, TID, Blayne Ordaz, DO, 20 g at 06/26/252111 magnesium oxide (Mag-Ox) tablet 400 mg, 400 mg, Oral, Daily, Blayne Ordaz, , 400 mg at midodrine (Proamatine) tablet 10 mg, 10 mg, Oral, TID, Del Valle Veronica K, DO, 10 mg at 06/26/252111 rifAXIMin [...] PRN, Maria Dolores Ontiveros APRN, DNP * Progress Notes - Juliane Rodriguez [...] - Continue daily vit D 1000 U; 87968 U to be ordered on 06/30 if [...] consulted; recs appreciated - Patient agreeable to jail facility Type 2 diabetes mellitus, with long-term current use of insulin ([facility]) Diabetic peripheral neuropathy ([facility]) - BG 245 on arrival; last POCT [...] - Continue to hold omeprazole - Ordered CASUALTY INSURANCE CLAIM ADJUSTER consult; appreciate recommendations Chronic obstructive pulmonary disease ([facility]) JONATHAN treated with BiPAP - Chronic; on BiPAP nightly at home - Sister is bringing home BiPAP this afternoon PLAN - Continue nightly BiPAP at 12/ per RT recs; RT to adjust settings as appropriate 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 ([facility]) Hyperlipidemia - Chronic; Crestor discontinued at most recent nephrology appointment PLAN - Continue to hold Crestor Obesity (BMI 30.0-34.9) - Chronic; Complicates all aspects of care Hypomagnesemia - 1.6 on admission; 1.5 8 PLAN - Continue magnesium oxide 400 mg daily - Will recheck magnesium level today and replete if it remains low F: PO E: Monitor and replace as necessary N: NPO diet NPO except: Sips with meds GI: no PPI DVT prophylaxis: subcutaneous heparin, holding for procedure then will resume Lines and Tubes: pIV CODE: Full Code SOCIAL: Currently living with sister in [facility] PT/OT: consulted, appreciate recommendations Consultants: PT/OT, [...] Review Outcome: Ongoing, Progressing Flowsheets (Taken 06/26/2025 9876) Progress: improving Plan of Care Reviewed With: [...] superimposed on stage 3b chronic kidney disease (Resolved 08/20/2025) - MELD 3.0: 27 on 06/26 - [...] - Continue daily vit D 1000 U; 95355 U to be ordered on 06/30 if [...] - Continue daily vit D 1000 U; 78604 U to be ordered on 06/30 if still admitted - Renally dose medications and avoid nephrotoxic agents * Assessment & Plan Note - [facility] Morales MD - 06/26/2025 3:57 PM EDT Associated Problem(s): Cirrhosis of liver with ascites - MELD 3.0: 27 on 06/26 - [...] - Continue daily vit D 1000 U; 14597 U to be ordered on 06/30 if [...] - Continue daily vit D 1000 U; 37484 U to be ordered on 06/30 if [...] - Continue daily vit D 1000 U; 21652 U to be ordered on 06/30 if [...] - Continue daily vit D 1000 U; 99611 U to be ordered on 06/30 if [...] mellitus, with long-term current use of insulin - BG 245 on arrival; last POCT [...] PM EDT Associated Problem(s): Diabetic peripheral neuropathy - BG 245 on arrival; last POCT [...] - Continue to hold omeprazole - Ordered CASUALTY INSURANCE CLAIM ADJUSTER consult; appreciate recommendations * Assessment & Plan Note - [facility] Morales MD - 06/26/2025 3:57 PM EDT Associated Problem(s): Heartburn - Chronic; advised to hold home omeprazole at most recent nephrology appointment due to concern forAKI PLAN - Continue to hold omeprazole - Ordered CASUALTY INSURANCE CLAIM ADJUSTER consult; appreciate recommendations * Assessment & Plan Note - [facility] Morales MD - 06/26/2025 3:57 PM EDT Associated Problem(s): Chronic obstructive pulmonary disease - Chronic; on BiPAP nightly at home [...] EDT Associated Problem(s): 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 Shaniqua Mccurdy, ADRI Interventional Radiology [phone] [1] Past Medical History: Diagnosis Date ADHD (attention deficit hyperactivity disorder) Allergic Anxiety disorder, unspecified Anxiety Bleeding gums Blood in urine Cataract Chronic kidney disease Cirrhosis (CMS/HCC) Colon cancer screening 09/20/2019 Added automatically from request for surgery [id number] Coronary artery disease Depression 1996 Diabetes mellitus [...] 1979 BLADDER SURGERY N/A Bladder surgery from [facility] BREAST BIOPSY 2011 BREAST SURGERY 2010 BUNIONECTOMY Right CATARACT EXTRACTION Bilateral 2016 CHOLECYSTECTOMY 1979 ESOPHAGOGASTRODUODENOSCOPY HYSTERECTOMY N/A Hysterectomy from [facility] KNEE SURGERY Bilateral ORAL SURGERY N/A Oral surgery from [facility] OTHER SURGICAL HISTORY 2015 ROOT CANAL WISDOM TOOTH EXTRACTION [3] Social History Tobacco Use Smoking status: Never Passive exposure: Never Smokeless tobacco: Never Vaping Use Vaping status: Never Used Substance Use Topics Alcohol use: Not Currently Drug use: Never [4] No Known Allergies [5] Current Facility-Administered Medications: calcitriol (Rocaltrol) capsule 0.25 mcg, 0.25 mcg, Oral, Daily, Blayne Ordaz DO, 0.25 mcg at 06/26/25 09 calcium carbonate [...] Blayne Ordaz DO, 4 Units at 06/26/25 1224 insulin lispro (Admelog) injection - Correction - Nighttime Dose, 0-3 Units, Subcutaneous, Twice atnight, Blayne Ordaz DO lactulose (Chronulac) 10 GM/15ML solution 20 g, 20 g, Oral, TID, Blayne Ordaz, , 20 g at 06/26/25 09 magnesium oxide (Mag-Ox) tablet 400 mg, 400 mg, Oral, Daily, Blayne Ordaz DO, 400 mg at midodrine (Proamatine) tablet 10 mg, 10 mg, Oral, TID, Veronica Del Valle, rifAXIMin (Xifaxan) tablet 550 mg, 550 mg, Oral, BID, Blayne Ordaz DO, 550 mg at 06/26/25 0915 [COMPLETED] Insert peripheral IV, , , Once AND [COMPLETED] Saline lock IV, , , Once AND sodium chloride 0.9 % flush 10 mL, 10 mL, Intravenous, q12h AND sodium chloride 0.9 % flush 10 mL, 10 mL, Intravenous, PRN, Blayne Ordaz DO Insert peripheral IV, , , Once [...] off Intervention: Prevent Infection Flowsheets (Taken 06/26/2025 115) Infection Prevention: hand hygiene promoted rest/sleep promoted Goal: Optimal Comfort and Wellbeing Outcome: Ongoing, Progressing Intervention: Monitor Pain and Promote Comfort Flowsheets (Taken 06/26/2025 115) Pain Management Interventions: pillow support provided position [...] Note Monika Ordaz 64 y.o. female CSN: [id number] Admission: 06/25/2025 2:14 PM Primary Problem: Acute kidney injury superimposed on stage 3b chronic kidney disease (CMS/HCC) Timber Feller reviewed chart and spoke with patient at bedside to complete this Initial Case Management Assessment. Pt confirmed that her home address and PCP listed in [facility] is correct. Pt stated thatkizzy has been living with her sister in [place] since mid May. Pts mother also is currently staying with pts sister. PCP: Alvarez Ordaz MD Emergency Contact: Extended Emergency Contact Information Primary Emergency Contact: Viral Ordaz Mobile Relation: Son Preferred language: Barbadian Final Assembly And Packing Supervisor needed? No Secondary Emergency Contact: Lj Bernal Mobile Relation: Sister Insurance: Primary Visit Coverage Payer Plan Sponsor Code Group Number Group Name HUMANA MEDICARE HUMANA MEDICARE [id number] [employer] Primary Visit Coverage Subscriber Subscriber ID Subscriber Name Subscriber SSN Subscriber Address [id number] MONIKA ORDAZ [id number] [place] [address] Secondary Visit Coverage Payer Plan Sponsor Code Group Number Group Name MEDICAID-[facility] MEDICAID [facility] Secondary Visit Coverage Subscriber Subscriber ID Subscriber Name Subscriber SSN Subscriber Address [id number] MONIKA ORDAZ [id number] [place] [address] Patient information: Primary Caregiver: Self Support System: Immediate family Daily Living Activities: Functional Status: Minimum assistance Living Arrangements: Family Type of Residence: Private residence [address] [place] [address] Smoker in the Home?: No Current DME: Equipment Currently Used at Home: Bipap, walker, rollator Income Information: Income Source: Disabled Income/Expense Information: Expenses exceed income Current Resources Utilized: Food [place] Housing Circumstances-Z Codes: Housing Circumstances (select all that apply): Low Income (101-300% Federal Poverty Guidlines) - Z596 Anticipated Discharge Date: tBD Patient's Discharge Goal: Pt stated that she would like to go to rehab or jail facility.Pt does not feel that her sister can care for her and she does not feel safe living on her own. Assistance Available at Discharge: Pt is currently living with her sister but usually lives alone in a trailer in [place] Discharge Transport: May need assistance Follow Up Transport: Sister or son Home Health / Home Infusion / Outpatient Dialysis Services: None reported Living Will/Advance Directive/Power of Private Banker /Guardian: Have you reviewed your Advance Directive and is it valid for this stay?: No Advance Directive: Patient would not like information Information Provided on Healthcare Directives: No Pre-existing DNR/DNI Order: No Patient Requests Assistance: No Pt was given the 5 Wishes workbook. Additional Comments: Pt uses the [facility] for her medications. Venessa Brown * Consults - Medina Real RD - 06/26/2025 10:40 AM EDTAssociated Order(s): IP CONSULT TO NUTRITION SERVICES Adult Nutrition Evaluation Note Monika Ordaz 64 y.o. female CSN: [id number] Room/Bed 723/723A Nutrition evaluation type: assessment Reason for evaluation: provider consult Hospital course: 64y/o female admitted 06/25 for CARLOTTA on CKD and inability to care for herself. Past medical/ surgical history: Past Medical History[1] Surgical History[2] Social history: None, no mandaen needs Additional comments: 06/26: RD visited pt [...] (Room air) O2 Delivery Method: CPAP/Bi-PAP mask [place] Coma Scale Score: 15 Edd Scale Score: [...] 30.05 Weight Evaluation: Obese-Class 1 (BMI 30-34.9) [place] Body Weight (kg): 57 Percent [place] Body Weight: 144 Adjusted Body Weight (kg): [...] Regular Adult Carbohydrate Restriction: Consistent CHO 3 (9800-9121 Deniz, 95 g/meal) Fat Restriction: Fat-free Electrolyte [...] 09/20/2019 Added automatically from request for surgery [id number] Coronary artery disease Depression 1995 Diabetes mellitus [...] 1979 BLADDER SURGERY N/A Bladder surgery from [facility] BREAST BIOPSY 2011 BREAST SURGERY 2010 BUNIONECTOMY Right CATARACT EXTRACTION Bilateral 2016 CHOLECYSTECTOMY 1979 ESOPHAGOGASTRODUODENOSCOPY HYSTERECTOMY N/A Hysterectomy from [facility] KNEE SURGERY Bilateral ORAL SURGERY N/A Oral surgery from [facility] OTHER SURGICAL HISTORY 2014 ROOT CANAL WISDOM [...] tablet 1 ergocalciferol (Vitamin D-2) 1.25 MG (01647 UT) capsule Take 1 capsule by mouth [...] superimposed on stage 3b chronic kidney disease ([facility]). Problem List Active Hospital Problems Diagnosis Date Noted Other neutropenia ([facility]) 06/26/2025 Pancytopenia 06/26/2025 Hypomagnesemia 06/26/2025 Pleural effusion associated with hepatic disorder 06/25/2025 LLQ abdominal pain 06/25/2025 Self-care deficit 06/25/2025 CARLOTTA (acute kidney injury) ([facility]) 06/25/2025 Hx of spontaneous bacterial peritonitis 03/01/2025 Acute kidney injury superimposed on stage 3b chronic kidney disease ([facility]) 10/14/2024 Type 2 diabetes mellitus, with long-term current use of insulin ([facility]) 01/11/2024 Cirrhosis of liver with ascites ([facility]) 11/30/2022 Hyperlipidemia 07/17/2021 Obesity (BMI 30.0-34.9) 06/27/2020 JONATHAN treated with BiPAP 12/03/2019 Heartburn 08/02/2019 Chronic kidney disease, stage 3b ([facility]) 08/24/2018 Physical debility 08/24/2018 Chronic obstructive pulmonary disease ([facility]) 08/22/2018 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 ([facility]) 08/22/2018 Dysphagia 05/17/2018 Diabetic peripheral neuropathy ([facility]) 01/07/2017 Procedures Past Medical History Patient has a past medical history of ADHD (attention deficit hyperactivity disorder), Allergic, Anxiety disorder, unspecified, Bleeding gums, Blood in urine, Cataract, Chronic kidney disease, Cirrhosis ([facility]), Colon cancer screening (09/20/2019), Coronary artery disease, Depression (1995), Diabetes mellitus type 2 in obese (04/22/2015), Diabetic nephropathy ([facility]), Dry mouth, GERD (gastroesophageal reflux disease), Headache, [...] Bunionectomy (Right); Esophagogastroduodenoscopy; Other surgical history (2014); [place] tooth extraction; Breast surgery (2009); and Root canal. Precautions Medical Precautions: Fall precautions Subjective Pt agreeable to OT eval. Participants in Care Family/Caregiver Present: No Final Assembly And Packing Supervisor: Not Applicable Presentation Oxygen Therapy: None (Room [...] (Sister) Level of Mobility: Ambulatory- community Mobility [place]: Independent gait with device History of Falls: [...] Mobility Bed Mobility Exam: Scooting/Bridging Level of [place]: Stand-by assist Physical/Nonphysical Assist: Supervision Assistive Device: Bed rails Bed Mobility Exam: Supine to Sit Level of [place]: Stand-by assist Physical/Nonphysical Assist: Supervision, HOB elevated Assistive Device: Bed rails Transfers Transfer Exam: Sit to stand Level of [place]: Contact guard Physical/Nonphysical Assist: Supervision, Verbal Cues, Minimal cues Assistive Device: Rollator Transfer Exam: Stand to Sit Level of [place]: Stand-by assist Physical/Nonphysical Assist: Supervision, Verbal Cues, Minimal cues Assistive Device: Rollator Transfer Exam: Bed to Chair/Chair to Bed Level of [place]: Contact guard Physical/Nonphysical Assist: Supervision, Verbal Cues, Minimal cues Assistive Device: Rollator Toilet Transfer Level of [place]: Stand-by assist Physical/Nonphysical Assist: Supervision, Verbal Cues, [...] SBA, Setup Where Assessed: Toilet Standardized Assessments [facility] 6-Click Daily Activities Help from Other: Don/Doff Regular Lower Body Clothings: None Help From Other: Bathing: None Help From Other: Toileting: None Help From Other: Don/Doff Upper Body Clothings: None Help From Other: Grooming: None Help From Other: Eating Meals: None [facility] 6 Click - Daily Activities Score: [...] superimposed on stage 3b chronic kidney disease ([facility]). Problem List Active Hospital Problems Diagnosis Date Noted Other neutropenia ([facility]) 06/26/2025 Pancytopenia 06/26/2025 Hypomagnesemia 06/26/2025 Pleural effusion associated with hepatic disorder 06/25/2025 LLQ abdominal pain 06/25/2025 Self-care deficit 06/25/2025 CARLOTTA (acute kidney injury) ([facility]) 06/25/2025 Hx of spontaneous bacterial peritonitis 03/01/2025 Acute kidney injury superimposed on stage 3b chronic kidney disease ([facility]) 10/14/2024 Type 2 diabetes mellitus, with long-term current use of insulin ([facility]) 01/11/2024 Cirrhosis of liver with ascites ([facility]) 11/30/2022 Hyperlipidemia 07/17/2021 Obesity (BMI 30.0-34.9) 06/27/2020 JONATHAN treated with BiPAP 12/03/2019 Heartburn 08/02/2019 Chronic kidney disease, stage 3b ([facility]) 08/24/2018 Physical debility 08/24/2018 Chronic obstructive pulmonary disease ([facility]) 08/22/2018 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 ([facility]) 08/22/2018 Dysphagia 05/17/2018 Diabetic peripheral neuropathy ([facility]) 01/07/2017 Procedures Past Medical History Patient has a past medical history of ADHD (attention deficit hyperactivity disorder), Allergic, Anxiety disorder, unspecified, Bleeding gums, Blood in urine, Cataract, Chronic kidney disease, Cirrhosis ([facility]), Colon cancer screening (09/20/2019), Coronary artery disease, Depression (1995), Diabetes mellitus type 2 in obese (04/22/2015), Diabetic nephropathy ([facility]), Dry mouth, GERD (gastroesophageal reflux disease), Headache, [...] Bunionectomy (Right); Esophagogastroduodenoscopy; Other surgical history (2014); [place] tooth extraction; Breast surgery (2009); and Root canal. Precautions Medical Precautions: Fall precautions Subjective Pt agreeable to participating in session. Participants in Care Family/Caregiver Present: No Final Assembly And Packing Supervisor: Not Applicable Presentation Oxygen Therapy: None (Room [...] (Sister) Level of Mobility: Ambulatory- community Mobility [place]: Independent gait with device History of Falls: [...] Mobility Bed Mobility Exam: Scooting/Bridging Level of [place]: Stand-by assist Physical/Nonphysical Assist: Supervision Assistive Device: Bed rails Bed Mobility Exam: Supine to Sit Level of [place]: Stand-by assist Physical/Nonphysical Assist: Supervision, HOB elevated Assistive Device: Bed rails Transfers Transfer Exam: Sit to stand Level of [place]: Contact guard Physical/Nonphysical Assist: Supervision, Verbal Cues, Minimal cues Assistive Device: Rollator Transfer Exam: Stand to Sit Level of [place]: Stand-by assist Physical/Nonphysical Assist: Supervision, Verbal Cues, Minimal cues Assistive Device: Rollator Toilet Transfer Level of [place]: Stand-by assist Physical/Nonphysical Assist: Supervision Type of [...] 3-5 steps with a railing?: A little AMPAC 6-Clicks Mobility Assessment Total : 23 No [...] - Continue daily vit D 1000 U; 34752 U to be ordered on 06/30 if still admitted - Renally dose medications and avoid nephrotoxic agents Other neutropenia ([facility]) Pancytopenia - WBC 1.89 (baseline 4.0) with [...] mellitus, with long-term current use of insulin ([facility]) Diabetic peripheral neuropathy ([facility]) - BG 245 on arrival; last POCT [...] - Continue to hold omeprazole - Ordered CASUALTY INSURANCE CLAIM ADJUSTER consult; appreciate recommendations Chronic obstructive pulmonary disease ([facility]) JONATHAN treated with BiPAP - Chronic; on BiPAP nightly at home - Sister is bringing home BiPAP this afternoon PLAN - Continue nightly BiPAP at 12/6 per RT recs; RT to adjust settings as appropriate 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 PT/OT: consulted, appreciate recommendations Consultants: PT/OT, nutrition, nephro, hepato, IR Disposition: Medically Ready for Discharge: Anticipated in 2-4 Days [] Resolution of CALROTTA [] PT/OT recommendations for placement Veronica Del Valle DO, Family Medicine, PGY-1 [facility] Cosigned by [facility] Morales MD [...] superimposed on stage 3b chronic kidney disease (Resolved 08/20/2025) MELD 3.0: 31 at 06/25/2025 3:00 PM [...] daily, Vit D 1000 U daily and 16092 U weekly (Sundays) PLAN: - Admitted to [...] - Continue daily vit D 1000 U; 38248 U to be ordered on 06/30 if [...] daily, Vit D 1000 U daily and 13065 U weekly (Sundays) PLAN: - Admitted to [...] - Continue daily vit D 1000 U; 74267 U to be ordered on 06/30 if still admitted - Renally dose medications and avoid nephrotoxic agents * Assessment & Plan Note - Blayne Ordaz DO - 06/26/2025 2:33 AM EDTAssociated Problem(s): Cirrhosis of liver with ascites MELD 3.0: 31 at 06/25/2025 3:00 PM [...] daily, Vit D 1000 U daily and 00204 U weekly (Sundays) PLAN: - Admitted to [...] - Continue daily vit D 1000 U; 10770 U to be ordered on 06/30 if [...] daily, Vit D 1000 U daily and 02615 U weekly (Sundays) PLAN: - Admitted to [...] - Continue daily vit D 1000 U; 17693 U to be ordered on 06/30 if [...] daily, Vit D 1000 U daily and 15410 U weekly (Sundays) PLAN: - Admitted to [...] - Continue daily vit D 1000 U; 55539 U to be ordered on 06/30 if [...] daily, Vit D 1000 U daily and 06147 U weekly (Sundays) PLAN: - Admitted to [...] - Continue daily vit D 1000 U; 65042 U to be ordered on 06/30 if [...] AM EDTAssociated Problem(s): Chronic obstructive pulmonary disease Continue nightly BiPAP at 12/6 per RT [...] AM EDTAssociated Problem(s): 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 Crestor discontinued at most recent nephrology appointment; [...] 06/26/2025223 by Bia Carrillo Outcome: Ongoing, Progressing 06/26/2025 012 by Bia Carrillo Outcome: Ongoing, Progressing Intervention: Monitor Pain and Promote Comfort Flowsheets (Taken 06/26/2025) Pain Management Interventions: declines Intervention: Provide Person-Centered Care Flowsheets (Taken 06/26/2025) Trust Relationship/Rapport: care explained choices provided Problem: Acute Kidney Injury/Impairment Goal: Fluid and Electrolyte Balance Outcome: Ongoing, Progressing Intervention: Monitor and Manage Fluid and Electrolyte Balance Flowsheets (Taken 06/26/2025223) Fluid/Electrolyte Management: fluids provided Goal: Improved Oral Intake Outcome: Ongoing, Progressing Intervention: Promote and Optimize Oral Intake Flowsheets (Taken 06/26/2025) Oral Nutrition Promotion: rest periods promoted Nutrition Interventions: frequent small meals provided Goal: Effective Renal Function Outcome: Ongoing, Progressing Intervention: Monitor and Support Renal Function Flowsheets Taken 06/26/2025223 Stabilization Measures: legs elevated Taken 06/26/2025 Medication [...] mellitus, with long-term current use of insulin - Takes glargine 48 U daily and [...] PM EDT Associated Problem(s): Diabetic peripheral neuropathy - Takes glargine 48 U daily and [...] not limited to: EKG. On arrival to [facility], patient promptly evaluated by FM Team. 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 (CMS/HCC) Hyperlipidemia [...] SOCIAL: Lives at home with family in [place], [place] PT/OT: consulted, appreciate recommendations Consultants: PT/OT Disposition: Medically Ready for Discharge:Anticipated in 2-4 Days [ ] Resolution of CARLOTTA [ ] PT/OT recs [ ] Clinical stability Dayne Medel DO, MS, MS Family Medicine, PGY-3 [facility] Blayne Ordaz DO PGY-2, Family Medicine [facility] Cosigned by [facility] Morales MD at 06/26/2025 3:32 PM EDT Associated attestation - [facility] Morales MD - 06/26/2025 3:32 PM EDT I discussed the case with the resident/fellow and agree with the findings and plan as documented. * ED Provider Notes - Mildred Cervantes DO - 06/25/2025 2:14 PM EDT Images from the original note were not included. Diagnosis management comments: Mildred Renteria DO, saw and evaluated the patient with the medical student. I discussed the case with the medical student and agree with the findings and plan as documented. I personally performed the Exam and Medical Decision Making. - HPI Chief Complaint Patient presents with Abnormal Lab Creatinine mentioned by PT. Monika Ordaz is a (an) 64 y.o. female with MASH cirrhosis awaiting liver transplant, CKD, T2DM,COPD, CAD brought to the emergency department by EMS for worsening kidney function. She was seen byher receiver bulk system earlier today who noted she has had worsening kidney function with a baseline serum creatinine at about 1.4 which had risen to 2.3. Patient states she gets paracentesis once weekly every and sometimes also thoracentesis. She is compliant with her medications. She states she occasionally gets heart pain with shortness of breath for which she was seen at [facility] two days ago. She currently denies [...] deficit present. Mental Status: She is alert. [place] Coma Scale Score: 15 ED Course & MDM - Assessment: 64 y.o. female presents to ED with complaint of worsening kidney function. It should be noted that the chronic conditions includes [facility] cirrhosis awaiting liver transplant, CKD, T2DM, COPD, [...] draw Order ID Start Status Ordering Provider [id number] 06/26/25399 Final result [id number] 06/27/25399 Acknowledged ORDAZ, BLAYNE S 06/28/25399 Scheduled ORDAZ, BLAYNE S 06/29/25399 Scheduled ORDAZ, BLAYNE S 06/30/25399 Scheduled ORDAZ, BLAYNE S Acknowledged ORDAZ, BLAYNE S 06/25/251935 Magnesium, Plasma Morning draw Order ID Start Status Ordering Provider [id number] 06/26/25399 Final result ORDAZBLAYNE [id number] 06/27/25399 Acknowledged ORDAZ, BLAYNE S 08/08/25 0400 Scheduled ORDAZ, BLAYNE S 06/29/25 0400 Scheduled ORDAZ, BLAYNE S 06/30/25 0400 Scheduled ORDAZ, BLAYNE S Acknowledged ORDAZ, BLAYNE S 06/25/25 193 Phosphorus, Plasma Morning draw Order ID Start Status Ordering Provider [id number] 06/26/25 0400 Final result ORDAZ, BLAYNE Villalta [id number] 06/27/25 0400 Acknowledged ORDAZ, BLAYNE S 06/28/25 0400 Scheduled ORDAZ, BLAYNE S 06/29/25 0400 Scheduled ORDAZ, BLAYNE S 06/30/25 0400 Scheduled ORDAZ, BLAYNE S Acknowledged ORDAZ, BLAYNE S 06/25/25 193 Comprehensive metabolic panel Morning draw Order ID Start Status Ordering Provider [id number] 06/26/25 0400 Final result ORDAZ, BLAYNE Villalta [id number] 06/27/25 0400 Acknowledged ORDAZ, BLAYNE S 06/28/25 0400 Scheduled ORDAZ, BLAYNE S 06/29/25 0400 Scheduled ORDAZ, BLAYNE S 06/30/25 0400 Scheduled ORDAZ, BLAYNE S Acknowledged ORDAZ, BLAYNE Villalta 06/25/25 193 Vital Signs Every 4 hours Acknowledged ORDAZ BLAYNE Ambar 06/25/251935 Sequential compression device Until discontinued Comments: SCDs must be in place and turned on EXCEPT when ACTIVELY ambulating. Acknowledged ORLIN BLAYNE S 06/25/251935 Do Not Give Nicotine Replacement Until discontinued Acknowledged ORDAZ BLAYNE Ambar 06/25/251935 Full code Continuous Acknowledged ORDAZ BLAYNE Ambar 06/25/251935 Diet effective now Canceled BLAYNE ORDAZ 06/25/25 193 Mobility Orders Until discontinued Acknowledged ORLIN BLAYNE S 06/25/25 193 No Smoking Until discontinued Acknowledged ORLIN BLAYNE Ambar 06/25/251935 Notify physician (specify parameters) Until discontinued Acknowledged ORLIN BLAYNE S 06/25/251935 Insert peripheral IV Once Placed in And Linked Group Completed BLAYNE ORDAZ 06/25/251935 Saline lock IV Once Placed in And Linked Group Completed ORLIN BLAYNE S 06/25/251935 Admit to inpatient Once Completed BLAYNE ORDAZ 06/25/25 1818 POCT glucose meter PROCEDURE ONCE Final result KADIE MAURO 06/25/25 1713 Consult to Family Medicine Once Specialty: Family Medicine Provider: (Not yet assigned) Acknowledged BLAYNE ORDAZ 06/25/25 1713 ED to floor bed request Once Completed BLAYNE ORDAZ 06/25/25 1638 Manual Differential Once Final result MILDRED CERVANTES L 06/25/25 1638 Morphology Once Final result WHITNEY CERVANTESE L 06/25/25 1622 Once Specialty: Internal Medicine Provider: (Not yet assigned) Canceled WHITNEY CERVANTESE L 06/25/25 1622 Once Canceled WHITNEY CERVANTESE L 06/25/25 1446 XR Chest 1 View One time imaging Final result WHITNEY CERVANTESE L 06/25/25 1444 ECG Adult Once Final result WHITNEY CERVANTESE L 06/25/25 1444 CBC w/diff STAT Final result WHITNEY CERVANTESE L 06/25/25 1444 PT-INR STAT Final result WHITNEY CERVANTESE L 06/25/25 1444 CMP STAT Final result WHITNEY CERVANTESE L 06/25/25 1444 Magnesium STAT Final result SCOCCWHITNEY DentE L 06/25/25 1444 Phosphorus STAT Final result WHITNEY CERVANTESE L 06/25/25 1427 POCT glucose meter PROCEDURE [...] she is usually always admitted here at [place] so that transplantis available. I discussed this with Internal Medicine (Dr. Magaña) who stated Transplant is available at [facility] as well as that patient could be transported to [facility] for her scheduled IR thoracentesis and paracentesis and then transferred back to [facility]. I discussed this with patient who is now agreeable for transfer to [facility] and admission to family medicine. I spoke with Family Medicine team at [facility] and they are agreeable to admit. Ultimately, this patient was Was admitted (Admission) There were no encounter diagnoses.. Patient believed to require admission for the listed diagnoses. The family medicine service was consulted for admission and was agreeable to admit to Acute Floor (Med/Surg). ED Prescriptions None Disposition Admit Admitting/Attending Physician: CHILO MORALES [[id number]] Provider Care Team: FAMILY MEDICINE [58] Are they the primary team?: Yes [1] - Randal Medina [facility] [employer] Candidate, 202506/26/2025 8:34 PM Cat DO Billy, Navdeep Emergency Medicine PGY-3 [1] Past Medical History: Diagnosis Date ADHD (attention deficit hyperactivity disorder) Allergic Anxiety disorder, unspecified Anxiety Bleeding gums Blood in urine Cataract Chronic kidney disease Cirrhosis (CMS/HCC) Colon cancer screening 09/20/2019 Added automatically from request for surgery [id number] Coronary artery disease Depression 1995 Diabetes mellitus [...] 1979 BLADDER SURGERY N/A Bladder surgery from [facility] BREAST BIOPSY 2011 BREAST SURGERY 2010 BUNIONECTOMY Right CATARACT EXTRACTION Bilateral 2016 CHOLECYSTECTOMY 1980 ESOPHAGOGASTRODUODENOSCOPY HYSTERECTOMY N/A Hysterectomy from [facility] KNEE SURGERY Bilateral ORAL SURGERY N/A Oral surgery from [facility] OTHER SURGICAL HISTORY 2014 ROOT CANAL WISDOM [...] Mauro MD - 06/28/2025 8:52 AM EDT I, Kadie Mauro MD, personally verified the history, examined the patient, discussed with the student and resident and performed the medical decision making. I agree with the documentation and plan of care. * ED Triage Notes - Evelio Hinojosa - 06/25/2025 2:14 PM EDT PT was at [facility] Nephrology. Staff notified PT of an abnormal lab value and encouraged immediate medical attention via Emergency Department. Vitals stable during transport. documented in this encounter Plan of Treatment Upcoming Encounters Date Type Department Care Team (Late st Contact Info) Description 08/26/2025 1:00 PM EDT Office Visit [facility] Endocrinology [address] [place] [address] Miranda Hobson, CHILD & ADOLESCENT PSYCHIATRIST [address] [facility] [address] [place] [address] 08/29/2025 10:00 AM EDT Appointment [facility]iology [address] [place] [address] 08/29/2025 11:00 AM EDT Appointment [facility]iology [address] [place] [address] 09/03/2025 8:40 AM EDT Office Visit [facility] [address] [facility], [address] [place] [phone] Lillie Pritchard MD [address] [place] [address] 09/05/2025 10:00 AM EDT Appointment [facility]iology [address] [place] [phone] 09/05/2025 11:00 AM EDT Appointment [facility] [address] [place] [phone] 09/17/2025 9:45 AM EDT Clinical Support [facility] [place] [address] [place] [address] 09/17/2025 10:30 AM EDT Social Work [facility] [place] [address] [place] [address] Lea Reilly, [place] [address] 09/17/2025 11:20 AM EDT Office Visit [facility] [place] [address] [facility] [address] [place] [address] Octavia Herrera, PA [address] [place] [address] Scheduled Orders Name Type Priority Associated Diagnoses Orde r Schedule Body Fluid Culture and Gram Stain - Pleural Left Microbiology Routine Once (Lab) for 1 Occurrences starting 07/04/2025 until 07/04/2025 Scheduled Referrals Name Type Priority Associated Diagnoses Order Schedule Discharge Ambulatory referral to Family Medicine Outpatient Referral Routine [place] (acute kidney injury) ([facility]) Expected: 07/23/2025, Expires: 01/10/2027 documented as of [...] POCT glucose meter (07/09/2025 11:23 AM EDT) [facility] POCT Glucose 199(H) 74 - 99 mg/dL 07/09/2025 11:25 AM EDT [facility] Comment:Accuracy of a glucos e result [...] Comment 07/09/2025 11:25 AM EDT [facility] [employer] Set Up Operator ID Nadia Salazar 11:25 AM EDT [facility]ARE [facility] Device ID [id number] 07/09/2025 11:25 AM EDT [facility] Specimen Type POC Capillary 07/09/2025 11:25 AM EDT [facility] Blood Capillary blood specimen / Unknown 07/09/2025 11:23 AM EDT 07/09/2025 11:25 AM EDT Kayla Reed MD LAB POINT OF CARE TEST DOCKED DEVICE UNSOLICITED RESULTS Final Result Performing Organization Address City/State/[facility] Co de Phone Number [facility]ALTHCARE LAB [address] [place] [address] * (ABNORMAL) POCT glucose meter (07/09/2025 8:10 [...] Comment 07/09/2025 8:12 AM EDT [facility] [employer] Set Up Operator ID Reyes Elias 07/09/2025 8:12 AM EDT HEALTHCARE LAB Device ID [id number] 07/09/2025 8:12 AM EDT [facility]ARE [facility] Specimen Type POC Capillary 07/09/2025 8:12 AM EDT [facility] Blood Capillary blood specimen / Unknown 07/09/2025 8:10 AM EDT 07/09/2025 8:12 AM EDT Kayla Reed MD LAB POINT OF CARE TEST DOCKED DEVICE UNSOLICITED RESULTS Final Result Performing Organization Address [facility]/ZIP Co de Phone Number HEALTHCARE LAB [address] [place] [address] * (ABNORMAL) Protime-INR (07/09/2025 5:52 AM EDT) Pathologist [facility] Prothrombin Time 23.5(H) 12.0 - 14.3 sec [...] INR 2.5 to 3.5 Prevention of recurrent RI INR 2.5 to 3.5 us Fabiana Cunningham MD LAB BLOOD ORDERABLES Final Resu lt Performing Organization Address City/[facility] Co de Phone Number [facility] [address] [place] [address] * (ABNORMAL) POCT glucose meter (07/09/2025 3:59 AM EDT) Pathologist [facility] POCT Glucose 108(H) 74 - 99 mg/dL [...] 07/09/2025 4:01 AM EDT [facility] [employer] Set Up Operator ID Love Gore 4:01 AM EDT [facility] Device ID [id number] 07/09/2025 4:01 AM EDT [facility] Specimen Type POC Capillary 07/09/2025 4:01 AM EDT [facility] Blood Capillary blood specimen / Unknown 07/09/2025 3:59 AM EDT 07/09/2025 4:01 AM EDT Kayla Reed MD LAB POINT OF CARE TEST DOCKED DEVICE UNSOLICITED RESULTS Final Result [facility] [address] [place] [address] * (ABNORMAL) Comprehensive metabolic panel (07/09/2025 3:22 AM EDT) Glucose, Plasma 105(H) 74 - 99 mg/dL 07/09/2025 4:00 AM EDT [facility] BUN, Plasma 22 8 - 23 mg/dL 07/09/2025 4:00 AM EDT [facility] Creatinine, Plasma 1.22(H) 0.60 - 1.10 mg/dL 07/09/2025 4:00 AM EDT [facility] BUN/Creatinine Ratio 18 07/09/2025 4:00 AM EDT [facility] Sodium, Plasma 136 136 - 145 mmol/L 07/09/2025 4:00 AM EDT [facility] Potassium, Plasma 4.1 3.6 - 4.9 mmol/L 07/09/2025 4:00 AM EDT [facility] Chloride, Plasma 108(H) 97 - 107 mmol/L 07/09/2025 4:00 AM EDT [facility] CO2, Plasma 18(L) 22 - 29 mmol/L 07/09/2025 4:00 AM EDT [facility] Anion Gap 10 6 - 16 mmol/L 07/09/2025 4:00 AM EDT [facility] Total Calcium, Plasma 8.5(L) 8.9 - 10.2 mg/dL 07/09/2025 4:00 AM EDT [facility] Total Protein 6.2(L) 6.3 - 7.9 g/dL 07/09/2025 4:00 AM EDT [facility] Albumin, Plasma 3.5 3.5 - 5.2 g/dL 07/09/2025 4:00 AM EDT [facility]ALTH[facility] AST, Plasma 39(H) 10 - 35 U/L 07/09/2025 4:00 AM EDT [facility] ALT, Plasma 19 10 - 35 U/L 07/09/2025 4:00 AM EDT [facility] Alkaline Phosphatase, Plasma 170(H) 46 - 142 U/L 07/09/2025 4:00 AM EDT [facility] Total Bilirubin, Plasma 2.7(H) 0.2 - 1.1 mg/dL 07/09/2025 4:00 AM EDT [facility] eGFRcr 50.3 mL/min/1.7 3m*2 07/09/2025 4:00 AM EDT [facility] Comment:Reported eGFRcr in m L/min/1.73m2 is based the CKD-EPI 2020 equation that does not use a race coefficient. Blood Venous blood specimen / Unknown Venipuncture / Unknown 07/09/2025 3:22 AM EDT 07/09/2025 3:39 AM EDT us Chilo Morales MD LAB BLOOD ORDERABLES Final Result Performing Organization Address City/[facility]/ZIP Co de Phone Number [facility] [address] [place] [address] * Phosphorus, Plasma (07/09/2025 3:22 AM EDT) Phosphorus, Plasma 3.6 2.5 - 4.5 mg/dL 07/09/2025 4:00 AM EDT [facility] Blood Venous blood specimen / Unknown Venipuncture / Unknown 07/09/2025 3:22 AM EDT 07/09/2025 3:39 AM EDT Chilo Morales MD LAB BLOOD ORDERABLES Final Result [facility] [address] [place] [address] * Magnesium, Plasma (07/09/2025 3:22 AM EDT) Magnesium, Plasma 1.9 1.9 - 2.4 mg/dL 07/09/2025 4:00 AM EDT [facility] Blood Venous blood specimen / Unknown Venipuncture / Unknown 07/09/2025 3:22 AM EDT 07/09/2025 3:39 AM EDT us Chilo Morales MD LAB BLOOD ORDERABLES Final Result [facility] [address] [place] [address] * (ABNORMAL) CBC and Differential (07/09/2025 3:22 AM EDT) Pathologist [facility] WBC Count 3.24(L) 3.70 - 10.30 10*3/uL LAB HEMATOLOGY METHOD 07/09/2025 3:42 AM EDT [facility] RBC Count 2.67(L) 3.90 - 5.20 10*6/uL LAB HEMATOLOGY METHOD 07/09/2025 3:42 AM EDT [facility] HGB 8.4(L) 11.2 - 15.7 g/dL LAB HEMATOLOGY METHOD 07/09/2025 3:42 AM EDT [facility] HCT 25.0(L) 34.0 - 45.0 % LAB HEMATOLOGY METHOD 07/09/2025 3:42 AM EDT [facility] Platelet Count 51(L) 155 - 369 10*3/uL LAB HEMATOLOGY METHOD 07/09/2025 3:42 AM EDT [facility] MCV 94 79 - 98 fL LAB HEMATOLOGY METHOD 07/09/2025 3:42 AM EDT [facility] MCH 31.5 26.0 - 32.0 pg LAB HEMATOLOGY METHOD 07/09/2025 3:42 AM EDT [facility] MCHC 33.6 30.7 - 35.5 g/dL LAB HEMATOLOGY METHOD 07/09/2025 3:42 AM EDT [facility] RDW 16.2(H) 11.5 - 14.5 % LAB HEMATOLOGY METHOD 07/09/2025 3:42 AM EDT [facility] MPV 11.8 8.8 - 12.5 fL LAB HEMATOLOGY METHOD 07/09/2025 3:42 AM EDT [facility] nRBC 0.0 <=0.0 per 100 WBCs LAB HEMATOLOGY METHOD 07/09/2025 3:42 AM EDT [facility] Differential Type Automated LAB HEMATOLOGY METHOD 07/09/2025 3:42 AM EDT [facility] Neutrophils % 57 % LAB HEMATOLOGY METHOD 07/09/2025 3:42 AM EDT [facility]ALTH[facility] Lymphocytes % 23 % LAB HEMATOLOGY METHOD 07/09/2025 3:42 AM EDT [facility] Monocytes % 16 % LAB HEMATOLOGY METHOD 07/09/2025 3:42 AM EDT [facility] Eosinophils % 3 % LAB HEMATOLOGY METHOD 07/09/2025 3:42 AM EDT [facility] Basophils % 1 % LAB HEMATOLOGY METHOD 07/09/2025 3:42 AM EDT [facility] Immature Granulocytes % 0 % LAB HEMATOLOGY METHOD 07/09/2025 3:42 AM EDT [facility] Neutrophils Absolute 1.84 1.60 - 6.10 10*3/uL LAB HEMATOLOGY METHOD 07/09/2025 3:42 AM EDT [facility] Lymphocytes Absolute 0.73(L) 1.20 - 3.90 10*3/uL LAB HEMATOLOGY METHOD 07/09/2025 3:42 AM EDT [facility] Monocytes Absolute 0.52 0.30 - 0.90 10*3/uL LAB HEMATOLOGY METHOD 07/09/2025 3:42 AM EDT [facility] Eosinophils Absolute 0.11 0.00 - 0.50 10*3/uL LAB HEMATOLOGY METHOD 07/09/2025 3:42 AM EDT [facility] Basophils Absolute 0.03 0.00 - 0.10 10*3/uL LAB HEMATOLOGY METHOD 07/09/2025 3:42 AM EDT [facility] Immature Granulocytes Absolute 0.01 0.00 - 0.06 10*3/uL LAB HEMATOLOGY METHOD 07/09/2025 3:42 AM EDT [facility] Blood Venous blood specimen / Unknown Venipuncture / Unknown 07/09/2025 3:22 AM EDT 07/09/2025 3:38 AM EDT [facility] - 07/09/2025 3:42 AM EDT Therapeutic decision making should be based on absolute values, rather than percentages. us Chilo Morales MD LAB BLOOD ORDERABLES Final Result [facility] [address] [place] [address] * (ABNORMAL) POCT glucose meter (07/08/2025 8:37 PM EDT) [facility] POCT Glucose 164(H) 74 - 99 mg/dL [...] 07/08/2025 8:39 PM EDT [facility] [employer] Set Up Operator ID Love Gore 8:39 PM EDT [facility] Device ID [id number] 07/08/2025 8:39 PM EDT [facility] Specimen Type POC Capillary 07/08/2025 8:39 PM EDT [facility] Blood Capillary blood specimen / Unknown 07/08/2025 8:37 PM EDT 07/08/2025 8:39 PM EDT us Kayla Reed MD LAB POINT OF CARE TEST DOCKED DEVICE UNSOLICITED RESULTS Final Result [facility] [address] [place] [address] * (ABNORMAL) POCT glucose meter (07/08/2025 4:42 PM EDT) [facility] POCT Glucose 276(H) 74 - 99 mg/dL [...] 07/08/2025 4:45 PM EDT [facility] [employer] Set Up Operator ID MichaelCandy hudson 07/08/2025 4:45 PM EDT [facility] Device ID [id number] 07/08/2025 4:45 PM EDT [facility] Specimen Type POC Capillary 07/08/2025 4:45 PM EDT [facility] Blood Capillary blood specimen / Unknown 07/08/2025 4:42 PM EDT 07/08/2025 4:45 PM EDT Kayla Reed MD LAB POINT OF CARE TEST DOCKED DEVICE UNSOLICITED RESULTS Final Result Performing Organization Address City/[facility]/ZIP Co de Phone Number [facility] [address] [place] [address] * (ABNORMAL) POCT glucose meter (07/08/2025 11:28 [...] Comment 07/08/2025 11:30 AM EDT [facility] [employer] Set Up Operator ID Candy Smith 07/08/2025 11:30 AM EDT [facility] Device ID [id number] 07/08/2025 11:30 AM EDT [facility] Specimen Type POC Capillary 07/08/2025 11:30 AM EDT [facility] Blood Capillary blood specimen / Unknown 07/08/2025 11:28 AM EDT 07/08/2025 11:30 AM EDT Kayla Reed MD LAB POINT OF CARE TEST DOCKED DEVICE UNSOLICITED RESULTS Final Result Performing Organization Address City/[facility]/ZIP Co de Phone Number [facility] [address] [place] [address] * (ABNORMAL) POCT glucose meter (07/08/2025 8:02 [...] Comment 07/08/2025 8:05 AM EDT [facility] [employer] Set Up Operator ID Candy Smith 07/08/2025 8:05 AM EDT [facility] Device ID [id number] 07/08/2025 8:05 AM EDT [facility] Specimen Type POC Capillary 07/08/2025 8:05 AM EDT [facility] Blood Capillary blood specimen / Unknown 07/08/2025 8:02 AM EDT 07/08/2025 8:05 AM EDT Kayla Reed MD LAB POINT OF CARE TEST DOCKED DEVICE UNSOLICITED RESULTS Final Result Performing Organization Address City/[facility]/ZIP Co de Phone Number [facility] [address] [place] [address] * (ABNORMAL) Ammonia, Plasma (07/08/2025 4:21 AM EDT) Ammonia 146(H) 11 - 51 umol/L 07/08/2025 4:56 AM EDT [facility] Blood Venous blood specimen / Unknown Venipuncture / Unknown 07/08/2025 4:21 AM EDT 07/08/2025 4:27 AM EDT Kayla Reed MD LAB BLOOD ORDERABLES Tari l Result [facility] [address] [place] [address] * (ABNORMAL) Protime-INR (07/08/2025 4:21 AM EDT) Prothrombin Time 22.4(H) 12.0 - 14.3 sec 07/08/2025 4:45 AM EDT [facility] INR 1.9(H) 0.9 - 1.1 07/08/2025 4:45 AM EDT [facility] Blood Venous blood specimen / Unknown Venipuncture / Unknown 07/08/2025 4:21 AM EDT 07/08/2025 4:30 AM EDT Narrative [facility] - 07/08/2025 4:45 AM EDT OPTIMAL INR RANGES FOR PATIENT ON ORAL ANTICOAGULANT THERAPY Prevention of venous thromboembolism INR 2.0 to 3.0 In patients with heart disease: Atrial fibrillation INR 2.0 to 3.0 Valvular heart disease INR 2.0 to 3.0 Tissue heart valves INR 2.0 to 3.0 Mechanical prosthetic valves INR 2.5 to 3.5 Prevention of recurrent RI INR 2.5 to 3.5 us Fabiana Cunningham MD LAB BLOOD ORDERABLES Final Resu lt [facility] [address] [place] [address] * (ABNORMAL) Comprehensive metabolic panel (07/08/2025 4:21 AM EDT) Glucose, Plasma 172(H) 74 - 99 mg/dL 07/08/2025 5:12 AM EDT [facility] BUN, Plasma 25(H) 8 - 23 mg/dL 07/08/2025 5:12 AM EDT [facility] Creatinine, Plasma 1.16(H) 0.60 - 1.10 mg/dL 07/08/2025 5:12 AM EDT [facility] BUN/Creatinine Ratio 22 07/08/2025 5:12 AM EDT [facility] Sodium, Plasma 135(L) 136 - 145 mmol/L 07/08/2025 5:12 AM EDT [facility] Potassium, Plasma 4.2 3.6 - 4.9 mmol/L 07/08/2025 5:12 AM EDT [facility] Chloride, Plasma 106 97 - 107 mmol/L 07/08/2025 5:12 AM EDT [facility] CO2, Plasma 19(L) 22 - 29 mmol/L 07/08/2025 5:12 AM EDT [facility] Anion Gap 10 6 - 16 mmol/L 07/08/2025 5:12 AM EDT [facility] Total Calcium, Plasma 8.5(L) 8.9 - 10.2 mg/dL 07/08/2025 5:12 AM EDT [facility]ALTH[facility] Total Protein 6.0(L) 6.3 - 7.9 g/dL 07/08/2025 5:12 AM EDT [facility] Albumin, Plasma 3.4(L) 3.5 - 5.2 g/dL 07/08/2025 5:12 AM EDT [facility] AST, Plasma 38(H) 10 - 35 U/L 07/08/2025 5:12 AM EDT [facility] ALT, Plasma 15 10 - 35 U/L 07/08/2025 5:12 AM EDT [facility] Alkaline Phosphatase, Plasma 167(H) 46 - 142 U/L 07/08/2025 5:12 AM EDT [facility] Total Bilirubin, Plasma 2.4(H) 0.2 - 1.1 mg/dL 07/08/2025 5:12 AM EDT [facility] eGFRcr 53.4 mL/min/1.7 3m*2 07/08/2025 5:12 AM EDT [facility] Comment:Reported eGFRcr in m L/min/1.73m2 is based the CKD-EPI 2020 equation that does not use a race coefficient. Blood Venous blood specimen / Unknown Venipuncture / Unknown 07/08/2025 4:21 AM EDT 07/08/2025 4:28 AM EDT us Chilo Morales MD LAB BLOOD ORDERABLES Final Result [facility] [address] [place] [address] * Phosphorus, Plasma (07/08/2025 4:21 AM EDT) Phosphorus, Plasma 3.3 2.5 - 4.5 mg/dL 07/08/2025 5:12 AM EDT [facility] Blood Venous blood specimen / Unknown Venipuncture / Unknown 07/08/2025 4:21 AM EDT 07/08/2025 4:28 AM EDT us Chilo Morales MD LAB BLOOD ORDERABLES Final Result [facility] [address] [place] [address] * Magnesium, Plasma (07/08/2025 4:21 AM EDT) Pathologist [facility] Magnesium, Plasma 1.9 1.9 - 2.4 mg/dL 07/08/2025 5:12 AM EDT [facility] Blood Venous blood specimen / Unknown Venipuncture / Unknown 07/08/2025 4:21 AM EDT 07/08/2025 4:28 AM EDT us Chilo Morales MD LAB BLOOD ORDERABLES Final Result [facility] [address] [place] [address] * (ABNORMAL) CBC and Differential (07/08/2025 4:21 AM EDT) Pathologist [facility] WBC Count 2.74(L) 3.70 - 10.30 10*3/uL LAB HEMATOLOGY METHOD 07/08/2025 4:34 AM EDT [facility] RBC Count 2.56(L) 3.90 - 5.20 10*6/uL LAB HEMATOLOGY METHOD 07/08/2025 4:34 AM EDT [facility] HGB 8.0(L) 11.2 - 15.7 g/dL LAB HEMATOLOGY METHOD 07/08/2025 4:34 AM EDT [facility] HCT 23.7(L) 34.0 - 45.0 % LAB HEMATOLOGY METHOD 07/08/2025 4:34 AM EDT [facility] Platelet Count 43(L) 155 - 369 10*3/uL LAB HEMATOLOGY METHOD 07/08/2025 4:34 AM EDT [facility] MCV 93 79 - 98 fL LAB HEMATOLOGY METHOD 07/08/2025 4:34 AM EDT [facility] MCH 31.3 26.0 - 32.0 pg LAB HEMATOLOGY METHOD 07/08/2025 4:34 AM EDT [facility] MCHC 33.8 30.7 - 35.5 g/dL LAB HEMATOLOGY METHOD 07/08/2025 4:34 AM EDT [facility] RDW 15.9(H) 11.5 - 14.5 % LAB HEMATOLOGY METHOD 07/08/2025 4:34 AM EDT [facility] MPV 10.4 8.8 - 12.5 fL LAB HEMATOLOGY METHOD 07/08/2025 4:34 AM EDT [facility] nRBC 0.0 <=0.0 per 100 WBCs LAB HEMATOLOGY METHOD 07/08/2025 4:34 AM EDT [facility] Differential Type Automated LAB HEMATOLOGY METHOD 07/08/2025 4:34 AM EDT [facility] Neutrophils % 55 % LAB HEMATOLOGY METHOD 07/08/2025 4:34 AM EDT [facility] Lymphocytes % 23 % LAB HEMATOLOGY METHOD 07/08/2025 4:34 AM EDT [facility] Monocytes % 18 % LAB HEMATOLOGY METHOD 07/08/2025 4:34 AM EDT [facility] Eosinophils % 3 % LAB HEMATOLOGY METHOD 07/08/2025 4:34 AM EDT [facility] Basophils % 1 % LAB HEMATOLOGY METHOD 07/08/2025 4:34 AM EDT [facility] Immature Granulocytes % 0 % LAB HEMATOLOGY METHOD 07/08/2025 4:34 AM EDT [facility] Neutrophils Absolute 1.52(L) 1.60 - 6.10 10*3/uL LAB HEMATOLOGY METHOD 07/08/2025 4:34 AM EDT [facility] Lymphocytes Absolute 0.62(L) 1.20 - 3.90 10*3/uL LAB HEMATOLOGY METHOD 07/08/2025 4:34 AM EDT [facility] Monocytes Absolute 0.50 0.30 - 0.90 10*3/uL LAB HEMATOLOGY METHOD 07/08/2025 4:34 AM EDT [facility] Eosinophils Absolute 0.08 0.00 - 0.50 10*3/uL LAB HEMATOLOGY METHOD 07/08/2025 4:34 AM EDT [facility] Basophils Absolute 0.02 0.00 - 0.10 10*3/uL LAB HEMATOLOGY METHOD 07/08/2025 4:34 AM EDT [facility] Immature Granulocytes Absolute 0.00 0.00 - 0.06 10*3/uL LAB HEMATOLOGY METHOD 07/08/2025 4:34 AM EDT [facility] Blood Venous blood specimen / Unknown Venipuncture / Unknown 07/08/2025 4:21 AM EDT 07/08/2025 4:30 AM EDT [facility]CARE LAB - 07/08/2025 4:34 AM EDT Therapeutic decision making should be based on absolute values, rather than percentages. us Chilo Morales MD LAB BLOOD ORDERABLES Final Result Performing Organization Address City/[facility] Co de Phone Number HEALTHCARE LAB [address] [place] [address] * (ABNORMAL) POCT glucose meter (07/07/2025 8:29 [...] for testing. Comment 07/07/2025 8:30 PM EDT [facility] [employer] Operator ID Love Gore 8:30 PM EDT [facility] Device ID [id number] 07/07/2025 8:30 PM EDT [facility] Specimen Type POC Capillary 07/07/2025 8:30 PM EDT [facility] Blood Capillary blood specimen / Unknown 07/07/2025 8:29 PM EDT 07/07/2025 8:30 PM EDT Kayla Reed MD LAB POINT OF CARE TEST DOCKED DEVICE UNSOLICITED RESULTS Final Result Performing Organization Address City/[facility] Co de Phone Number HEALTHCARE LAB [address] [place] [address] * (ABNORMAL) POCT glucose meter (07/07/2025 4:43 PM EDT) Pathologist [facility] POCT Glucose 255(H) 74 - 99 mg/dL [...] Comment 07/07/2025 4:44 PM EDT HEALTHCARE LAB [employer] Up Operator ID Allen Titus 07/07/2025 4:44 PM EDT HEALTHCARE LAB Device ID [id number] 07/07/2025 4:44 PM EDT [facility] Specimen Type POC Capillary 07/07/2025 4:44 PM EDT HEALTHCARE LAB Blood Capillary blood specimen / Unknown 07/07/2025 4:43 PM EDT 07/07/2025 4:44 PM EDT Kayla Reed MD LAB POINT OF CARE TEST DOCKED DEVICE UNSOLICITED RESULTS Final Result Performing Organization Address [facility] de Phone Number HEALTHCARE LAB [address] [place] [address] * (ABNORMAL) POCT glucose meter (07/07/2025 1:36 [...] Comment 07/07/2025 1:37 PM EDT HEALTHCARE LAB [employer] Up Operator ID Allen Titus 07/07/2025 1:37 PM EDT HEALTHCARE LAB Device ID [id number] 07/07/2025 1:37 PM EDT [facility] Specimen Type POC Capillary 07/07/2025 1:37 PM EDT HEALTHCARE LAB Blood Capillary blood specimen / Unknown 07/07/2025 1:36 PM EDT 07/07/2025 1:37 PM EDT Kayla Reed MD LAB POINT OF CARE TEST DOCKED DEVICE UNSOLICITED RESULTS Final Result Performing Organization Address City/[facility] Co de Phone Number HEALTHCARE LAB [address] [place] [address] * (ABNORMAL) POCT glucose meter (07/07/2025 11:54 AM EDT) [facility] POCT Glucose 198(H) 74 - 99 mg/dL [...] Comment 07/07/2025 11:56 AM EDT HEALTHCARE LAB [employer] Set Up Operator ID Allen Titus 07/07/2025 11:56 AM EDT HEALTHCARE LAB Device ID [id number] 07/07/2025 11:56 AM EDT HEALTHCARE LAB Specimen Type POC Capillary 07/07/2025 11:56 AM EDT HEALTHCARE LAB Blood Capillary blood specimen / Unknown 07/07/2025 11:54 AM EDT 07/07/2025 11:56 AM EDT us Kayla Reed MD LAB POINT OF CARE TEST DOCKED DEVICE UNSOLICITED RESULTS Final Result [facility] [address] [place] [address] * (ABNORMAL) POCT glucose meter (07/07/2025 8:01 AM EDT) [facility] POCT Glucose 141(H) 74 - 99 mg/dL [...] 07/07/2025 8:02 AM EDT [facility] [employer] Set Up Operator ID Allen Titus 07/07/2025 8:02 AM EDT HEALTHCARE LAB Device ID [id number] 07/07/2025 8:02 AM EDT [facility] Specimen Type POC Capillary 07/07/2025 8:02 AM EDT HEALTHCARE LAB Blood Capillary blood specimen / Unknown 07/07/2025 8:01 AM EDT 07/07/2025 8:02 AM EDT Kayla Reed MD LAB POINT OF CARE TEST DOCKED DEVICE UNSOLICITED RESULTS Final Result Performing Organization Address City/[facility] Co de Phone Number [facility] [address] [place] [address] * (ABNORMAL) Protime-INR (07/07/2025 3:30 AM EDT) Prothrombin Time 22.9(H) 12.0 - 14.3 sec 07/07/2025 4:18 AM EDT [facility] INR 2.0(H) 0.9 - 1.1 07/07/2025 4:18 AM EDT HEALTHCARE LAB Blood Venous blood specimen / Unknown Venipuncture / Unknown 07/07/2025 3:30 AM EDT 07/07/2025 3:54 AM EDT Narrative HEALTHCARE LAB - 07/07/2025 4:18 AM EDT OPTIMAL INR RANGES FOR PATIENT ON ORAL ANTICOAGULANT THERAPY Prevention of venous thromboembolism INR 2.0 to 3.0 In patients with heart disease: Atrial fibrillation INR 2.0 to 3.0 Valvular heart disease INR 2.0 to 3.0 Tissue heart valves INR 2.0 to 3.0 Mechanical prosthetic valves INR 2.5 to 3.5 Prevention of recurrent RI INR 2.5 to 3.5 us Fabiana Cunningham MD LAB BLOOD ORDERABLES Final Resu lt [facility] [address] [place] [address] * (ABNORMAL) Comprehensive metabolic panel (07/07/2025 3:30 AM EDT) Glucose, Plasma 151(H) 74 - 99 mg/dL 07/07/2025 4:21 AM EDT [facility] BUN, Plasma 26(H) 8 - 23 mg/dL 07/07/2025 4:21 AM [facility] Creatinine, Plasma 1.20(H) 0.60 - 1.10 mg/dL 07/07/2025 4:21 AM [facility] BUN/Creatinine Ratio 22 07/07/2025 4:21 AM [facility] Sodium, Plasma 140 136 - 145 mmol/L 07/07/2025 4:21 AM [facility] Potassium, Plasma 4.0 3.6 - 4.9 mmol/L 07/07/2025 4:21 AM [facility] Chloride, Plasma 110(H) 97 - 107 mmol/L 07/07/2025 4:21 AM [facility] CO2, Plasma 19(L) 22 - 29 mmol/L 07/07/2025 4:21 AM [facility] Anion Gap 11 6 - 16 mmol/L 07/07/2025 4:21 AM [facility] Total Calcium, Plasma 8.7(L) 8.9 - 10.2 mg/dL 07/07/2025 4:21 AM [facility] Total Protein 5.9(L) 6.3 - 7.9 g/dL 07/07/2025 4:21 AM [facility] Albumin, Plasma 3.5 3.5 - 5.2 g/dL 07/07/2025 4:21 AM [facility] AST, Plasma 31 10 - 35 U/L 07/07/2025 4:21 AM [facility] ALT, Plasma 13 10 - 35 U/L 07/07/2025 4:21 AM [facility] Alkaline Phosphatase, Plasma 144(H) 46 - 142 U/L 07/07/2025 4:21 AM [facility] Total Bilirubin, Plasma 2.9(H) 0.2 - 1.1 mg/dL 07/07/2025 4:21 AM [facility] eGFRcr 51.3 mL/min/1.7 3m*2 07/07/2025 4:21 AM [facility] Comment:Reported eGFRcr in m L/min/1.73m2 is based the CKD-EPI 2020 equation that does not use a race coefficient. Blood Venous blood specimen / Unknown Venipuncture / Unknown 07/07/2025 3:30 AM EDT 07/07/2025 3:53 AM EDT us Chilo Morales MD LAB BLOOD ORDERABLES Final Result Performing Organization Address [facility] de Phone Number HEALTHCARE LAB [address] [place] [address] * Phosphorus, Plasma (07/07/2025 3:30 AM EDT) Phosphorus, Plasma 3.6 2.5 - 4.5 mg/dL 07/07/2025 4:21 AM EDT HEALTHCARE LAB Blood Venous blood specimen / Unknown Venipuncture / Unknown 07/07/2025 3:30 AM EDT 07/07/2025 3:53 AM EDT us Chilo Morales MD LAB BLOOD ORDERABLES Final Result Performing Organization Address [facility] Phone Number [facility] [address] [place] [phone] * Magnesium, Plasma (07/07/2025 3:30 AM EDT) Magnesium, Plasma 1.9 1.9 - 2.4 mg/dL 07/07/2025 4:21 AM EDT [facility] Blood Venous blood specimen / Unknown Venipuncture / Unknown 07/07/2025 3:30 AM EDT 07/07/2025 3:53 AM EDT us Chilo Morales MD LAB BLOOD ORDERABLES Final Result Performing Organization Address [facility] de Phone Number [facility] [address] [place] [address] * (ABNORMAL) CBC and Differential (07/07/2025 3:30 AM EDT) WBC Count 2.65(L) 3.70 - 10.30 10*3/uL LAB HEMATOLOGY METHOD 07/07/2025 4:00 AM EDT [facility] RBC Count 2.56(L) 3.90 - 5.20 10*6/uL LAB HEMATOLOGY METHOD 07/07/2025 4:00 AM EDT [facility] HGB 8.0(L) 11.2 - 15.7 g/dL LAB HEMATOLOGY METHOD 07/07/2025 4:00 AM EDT [facility] HCT 23.8(L) 34.0 - 45.0 % LAB HEMATOLOGY METHOD 07/07/2025 4:00 AM EDT [facility] Platelet Count 46(L) 155 - 369 10*3/uL LAB HEMATOLOGY METHOD 07/07/2025 4:00 AM EDT [facility] MCV 93 79 - 98 fL LAB HEMATOLOGY METHOD 07/07/2025 4:00 AM EDT [facility] MCH 31.3 26.0 - 32.0 pg LAB HEMATOLOGY METHOD 07/07/2025 4:00 AM EDT [facility] MCHC 33.6 30.7 - 35.5 g/dL LAB HEMATOLOGY METHOD 07/07/2025 4:00 AM EDT [facility] RDW 15.9(H) 11.5 - 14.5 % LAB HEMATOLOGY METHOD 07/07/2025 4:00 AM EDT [facility] MPV 10.9 8.8 - 12.5 fL LAB HEMATOLOGY METHOD 07/07/2025 4:00 AM EDT [facility] nRBC 0.0 <=0.0 per 100 WBCs LAB HEMATOLOGY METHOD 07/07/2025 4:00 AM EDT [facility] Differential Type Automated LAB HEMATOLOGY METHOD 07/07/2025 4:00 AM EDT [facility] Neutrophils % 57 % LAB HEMATOLOGY METHOD 07/07/2025 4:00 AM EDT [facility] Lymphocytes % 24 % LAB HEMATOLOGY METHOD 07/07/2025 4:00 AM EDT [facility] Monocytes % 16 % LAB HEMATOLOGY METHOD 07/07/2025 4:00 AM EDT [facility] Eosinophils % 3 % LAB HEMATOLOGY METHOD 07/07/2025 4:00 AM EDT [facility] Basophils % 0 % LAB HEMATOLOGY METHOD 07/07/2025 4:00 AM EDT [facility] Immature Granulocytes % 0 % LAB HEMATOLOGY METHOD 07/07/2025 4:00 AM EDT [facility] Neutrophils Absolute 1.48(L) 1.60 - 6.10 10*3/uL LAB HEMATOLOGY METHOD 07/07/2025 4:00 AM EDT [facility] Lymphocytes Absolute 0.63(L) 1.20 - 3.90 10*3/uL LAB HEMATOLOGY METHOD 07/07/2025 4:00 AM EDT [facility] Monocytes Absolute 0.43 0.30 - 0.90 10*3/uL LAB HEMATOLOGY METHOD 07/07/2025 4:00 AM EDT HEALTHCARE LAB Eosinophils Absolute 0.09 0.00 - 0.50 10*3/uL LAB HEMATOLOGY METHOD 07/07/2025 4:00 AM EDT [facility] Basophils Absolute 0.01 0.00 - 0.10 10*3/uL LAB HEMATOLOGY METHOD 07/07/2025 4:00 AM EDT HEALTHCARE LAB Immature Granulocytes Absolute 0.01 0.00 - 0.06 10*3/uL LAB HEMATOLOGY METHOD 07/07/2025 4:00 AM EDT [facility] Blood Venous blood specimen / Unknown Venipuncture / Unknown 07/07/2025 3:30 AM EDT 07/07/2025 3:54 AM EDT Narrative HEALTHCARE LAB - 07/07/2025 4:00 AM EDT Therapeutic decision making should be based on absolute values, rather than percentages. Chilo Morales MD LAB BLOOD ORDERABLES Final Result [facility] [address] [place] [address] * (ABNORMAL) POCT glucose meter (07/06/2025 8:03 PM EDT) [facility] Signature POCT Glucose 185(H) 74 - 99 mg/dL [...] Comment 07/06/2025 8:05 PM EDT HEALTHCARE LAB [employer] Set Up Operator ID Camelia Rodriguez 07/06/2025 8:05 PM EDT [facility] Device ID [id number] 07/06/2025 8:05 PM EDT [facility] Specimen Type POC Capillary 07/06/2025 8:05 PM EDT [facility]ALTH[facility]ARE LAB Blood Capillary blood specimen / Unknown 07/06/2025 8:03 PM EDT 07/06/2025 8:05 PM EDT Kayla Reed MD LAB POINT OF CARE TEST DOCKED DEVICE UNSOLICITED RESULTS Final Result Performing Organization Address [facility] de Phone Number HEALTHCARE LAB [address] [place] [address] * (ABNORMAL) POCT glucose meter (07/06/2025 4:54 PM EDT) [facility] POCT Glucose 176(H) 74 - 99 mg/dL [...] Comment 07/06/2025 4:56 PM EDT HEALTHCARE LAB [employer] Set Up Operator ID Fabiana Wilkins 07/06/20 4:56 PM EDT HEALTHCARE LAB Device ID [id number] 07/06/2025 4:56 PM EDT HEALTHCARE LAB Specimen Type POC Capillary 07/06/2025 4:56 PM EDT [facility] Blood Capillary blood specimen / Unknown 07/06/2025 4:54 PM EDT 07/06/2025 4:56 PM EDT Kayla Reed MD LAB POINT OF CARE TEST DOCKED DEVICE UNSOLICITED RESULTS Final Result Performing Organization Address City/[facility] Co de Phone Number [facility] [address] [place] [address] * (ABNORMAL) POCT glucose meter (07/06/2025 11:37 AM EDT) [facility] POCT Glucose 165(H) 74 - 99 mg/dL [...] Comment 07/06/2025 11:39 AM EDT HEALTHCARE LAB [employer] Set Up Operator ID Fabiana Wilkins 07/06/20 11:39 AM EDT HEALTHCARE LAB Device ID [id number] 07/06/2025 11:39 AM EDT HEALTHCARE LAB Specimen Type POC Capillary 07/06/2025 11:39 AM EDT [facility]ALTH[facility]ARE LAB Blood Capillary blood specimen / Unknown 07/06/2025 11:37 AM EDT 07/06/2025 11:39 AM EDT Kayla Reed MD LAB POINT OF CARE TEST DOCKED DEVICE UNSOLICITED RESULTS Final Result Performing Organization Address City/State/[facility] Co de Phone Number [facility] [address] [place] [address] * (ABNORMAL) POCT glucose meter (07/06/2025 8:19 [...] Comment 07/06/2025 8:23 AM EDT HEALTHCARE LAB [employer] Set Up Operator ID Fabiana Wilkins 07/06/20 8:23 AM EDT HEALTHCARE LAB Device ID [id number] 07/06/2025 8:23 AM EDT HEALTHCARE LAB Specimen Type POC Capillary 07/06/2025 8:23 AM EDT [facility]ALTH[facility] Blood Capillary blood specimen / Unknown 07/06/2025 8:19 AM EDT 07/06/2025 8:23 AM EDT us Kayla Reed MD LAB POINT OF CARE TEST DOCKED DEVICE UNSOLICITED RESULTS Final Result Performing Organization Address City/State/[facility] Co de Phone Number HEALTHCARE LAB [address] [place] [address] * (ABNORMAL) Protime-INR (07/06/2025 2:31 AM EDT) Pathologist [facility] Prothrombin Time 24.2(H) 12.0 - 14.3 sec 07/06/2025 2:59 AM EDT HEALTHCARE LAB INR 2.1(H) 0.9 - 1.1 07/06/2025 2:59 AM EDT [facility] Blood Venous blood specimen / Unknown [...] INR 2.5 to 3.5 Prevention of recurrent RI INR 2.5 to 3.5 us Fabiana Cunningham MD LAB BLOOD ORDERABLES Final Resu lt Performing Organization Address City/[facility]/ZIP Co de Phone Number HEALTHCARE LAB [address] [place] [address] * (ABNORMAL) Comprehensive metabolic panel (07/06/2025 2:31 AM EDT) Glucose, Plasma 128(H) 74 - 99 mg/dL 07/06/2025 2:58 AM EDT [facility] BUN, Plasma 25(H) 8 - 23 mg/dL 07/06/2025 2:58 AM EDT [facility] Creatinine, Plasma 1.18(H) 0.60 - 1.10 mg/dL 07/06/2025 2:58 AM EDT [facility] BUN/Creatinine Ratio 21 07/06/2025 2:58 AM EDT [facility] Sodium, Plasma 141 136 - 145 mmol/L 07/06/2025 2:58 AM EDT [facility] Potassium, Plasma 4.4 3.6 - 4.9 mmol/L 07/06/2025 2:58 AM EDT [facility] Chloride, Plasma 111(H) 97 - 107 mmol/L 07/06/2025 2:58 AM EDT [facility] CO2, Plasma 17(L) 22 - 29 mmol/L 07/06/2025 2:58 AM EDT [facility] Anion Gap 13 6 - 16 mmol/L 07/06/2025 2:58 AM EDT [facility] Total Calcium, Plasma 8.6(L) 8.9 - 10.2 mg/dL 07/06/2025 2:58 AM EDT [facility] Total Protein 5.9(L) 6.3 - 7.9 g/dL 07/06/2025 2:58 AM EDT [facility] Albumin, Plasma 3.6 3.5 - 5.2 g/dL 07/06/2025 2:58 AM EDT [facility] AST, Plasma 36(H) 10 - 35 U/L 07/06/2025 2:58 AM EDT [facility] Comment:Hemolyzed, result ma y be falsely increased. ALT, Plasma 13 10 - 35 U/L 07/06/2025 2:58 AM EDT [facility] Alkaline Phosphatase, Plasma 129 46 - 142 U/L 07/06/2025 2:58 AM EDT [facility] Total Bilirubin, Plasma 3.2(H) 0.2 - 1.1 mg/dL 07/06/2025 2:58 AM EDT [facility] eGFRcr 52.3 mL/min/1.7 3m*2 07/06/2025 2:58 AM EDT [facility] Comment:Reported eGFRcr in m L/min/1.73m2 is based the CKD-EPI 2020 equation that does not use a race coefficient. Blood Venous blood specimen / Unknown Venipuncture / Unknown 07/06/2025 2:31 AM EDT 07/06/2025 2:36 AM EDT us Chilo Morales MD LAB BLOOD ORDERABLES Final Result [facility] [address] [place] [address] * Phosphorus, Plasma (07/06/2025 2:31 AM EDT) [facility] Phosphorus, Plasma 3.1 2.5 - 4.5 mg/dL 07/06/2025 2:58 AM EDT HEALTHCARE LAB Blood Venous blood specimen / Unknown Venipuncture / Unknown 07/06/2025 2:31 AM EDT 07/06/2025 2:36 AM EDT Chilo Morales MD LAB BLOOD ORDERABLES Final Result Performing Organization Address [facility] de Phone Number [facility] [address] [place] [address] * (ABNORMAL) Magnesium, Plasma (07/06/2025 2:31 AM EDT) Pathologist [facility] Magnesium, Plasma 1.7(L) 1.9 - 2.4 mg/dL 07/06/2025 2:58 AM EDT [facility] Blood Venous blood specimen / Unknown Venipuncture / Unknown 07/06/2025 2:31 AM EDT 07/06/2025 2:36 AM EDT Chilo Morales MD LAB BLOOD ORDERABLES Final Result Performing Organization Address [facility] Phone Number [facility] [address] [place] [address] * (ABNORMAL) CBC and Differential (07/06/2025 2:31 AM EDT) [facility] WBC Count 2.99(L) 3.70 - 10.30 10*3/uL LAB HEMATOLOGY METHOD 07/06/2025 2:53 AM EDT [facility] RBC Count 2.51(L) 3.90 - 5.20 10*6/uL LAB HEMATOLOGY METHOD 07/06/2025 2:53 AM EDT [facility] HGB 7.8(L) 11.2 - 15.7 g/dL LAB HEMATOLOGY METHOD 07/06/2025 2:53 AM EDT [facility] HCT 23.6(L) 34.0 - 45.0 % LAB HEMATOLOGY METHOD 07/06/2025 2:53 AM EDT [facility] Platelet Count 49(L) 155 - 369 10*3/uL LAB HEMATOLOGY METHOD 07/06/2025 2:53 AM EDT [facility] MCV 94 79 - 98 fL LAB HEMATOLOGY METHOD 07/06/2025 2:53 AM EDT HEALTHCARE LAB Comment:Results inconsistent with previous lab findings. MCH 31.1 26.0 - 32.0 pg LAB HEMATOLOGY METHOD 07/06/2025 2:53 AM EDT [facility] MCHC 33.1 30.7 - 35.5 g/dL LAB HEMATOLOGY METHOD 07/06/2025 2:53 AM EDT [facility] RDW 15.8(H) 11.5 - 14.5 % LAB HEMATOLOGY METHOD 07/06/2025 2:53 AM EDT [facility] MPV 11.7 8.8 - 12.5 fL LAB HEMATOLOGY METHOD 07/06/2025 2:53 AM EDT [facility] nRBC 0.0 <=0.0 per 100 WBCs LAB HEMATOLOGY METHOD 07/06/2025 2:53 AM EDT [facility] Differential Type Automated LAB HEMATOLOGY METHOD 07/06/2025 2:53 AM EDT [facility] Neutrophils % 58 % LAB HEMATOLOGY METHOD 07/06/2025 2:53 AM EDT [facility] Lymphocytes % 22 % LAB HEMATOLOGY METHOD 07/06/2025 2:53 AM EDT [facility] Monocytes % 16 % LAB HEMATOLOGY METHOD 07/06/2025 2:53 AM EDT [facility] Eosinophils % 3 % LAB HEMATOLOGY METHOD 07/06/2025 2:53 AM EDT [facility] Basophils % 1 % LAB HEMATOLOGY METHOD 07/06/2025 2:53 AM EDT [facility] Immature Granulocytes % 0 % LAB HEMATOLOGY METHOD 07/06/2025 2:53 AM EDT [facility] Neutrophils Absolute 1.73 1.60 - 6.10 10*3/uL LAB HEMATOLOGY METHOD 07/06/2025 2:53 AM EDT [facility] Lymphocytes Absolute 0.67(L) 1.20 - 3.90 10*3/uL LAB HEMATOLOGY METHOD 07/06/2025 2:53 AM EDT [facility]ALTHCARE [facility] Monocytes Absolute 0.47 0.30 - 0.90 10*3/uL LAB HEMATOLOGY METHOD 07/06/2025 2:53 AM EDT [facility] Eosinophils Absolute 0.08 0.00 - 0.50 10*3/uL LAB HEMATOLOGY METHOD 07/06/2025 2:53 AM EDT [facility] Basophils Absolute 0.03 0.00 - 0.10 10*3/uL LAB HEMATOLOGY METHOD 07/06/2025 2:53 AM EDT [facility]ALTH[facility] Immature Granulocytes Absolute 0.01 0.00 - 0.06 10*3/uL LAB HEMATOLOGY METHOD 07/06/2025 2:53 AM EDT [facility] Blood Venous blood specimen / Unknown Venipuncture / Unknown 07/06/2025 2:31 AM EDT 07/06/2025 2:36 AM EDT Narrative [facility] - 07/06/2025 2:53 AM EDT Therapeutic decision making should be based on absolute values, rather than percentages. us Chilo Morales MD LAB BLOOD ORDERABLES Final Result Performing Organization Address [facility] Co de Phone Number [facility] [address] [place] [address] * (ABNORMAL) POCT glucose meter (07/05/2025 8:06 [...] Comment 07/05/2025 8:08 PM EDT [facility]ALTH[facility]ARE LAB [employer] Set Up Operator ID Camelia Rodriguez 07/05/2025 8:08 PM EDT HEALTHCARE LAB Device ID [id number] 07/05/2025 8:08 PM EDT [facility] Specimen Type POC Capillary 07/05/2025 8:08 PM EDT [facility]ALTH[facility] LAB Blood Capillary blood specimen / Unknown 07/05/2025 8:06 PM EDT 07/05/2025 8:08 PM EDT us Kayla Reed MD LAB POINT OF CARE TEST DOCKED DEVICE UNSOLICITED RESULTS Final Result Performing Organization Address [facility] Co de Phone Number [facility] [address] [place] [address] * (ABNORMAL) POCT glucose meter (07/05/2025 4:46 PM EDT) [facility] POCT Glucose 171(H) 74 - 99 mg/dL [...] 07/05/2025 4:48 PM EDT [facility] [employer] Set Up Operator ID Emir Fredy 4:48 PM EDT [facility] Device ID [id number] 07/05/2025 4:48 PM EDT [facility] Specimen Type POC Capillary 07/05/2025 4:48 PM EDT [facility]ALTH[facility] Blood Capillary blood specimen / Unknown 07/05/2025 4:46 PM EDT 07/05/2025 4:48 PM EDT Fabiana Cunningham MD LAB POINT OF CARE TE ST DOCKED DEVICE UNSOLICITED RESULTS Final Result [facility] [address] [place] [address] * (ABNORMAL) POCT glucose meter (07/05/2025 11:53 AM EDT) [facility] POCT Glucose 192(H) 74 - 99 mg/dL [...] 07/05/2025 11:54 AM EDT [facility] [employer] Set Up Operator ID Emir Fredy 11:54 AM EDT [facility] Device ID [id number] 07/05/2025 11:54 AM EDT [facility] Specimen Type POC Capillary 07/05/2025 11:54 AM EDT [facility] Blood Capillary blood specimen / Unknown 07/05/2025 11:53 AM EDT 07/05/2025 11:54 AM EDT Fabiana Cunningham MD LAB POINT OF CARE TE ST DOCKED DEVICE UNSOLICITED RESULTS Final Result Performing Organization Address City/[facility] Co de Phone Number [facility] [address] [place] [address] * (ABNORMAL) POCT glucose meter (07/05/2025 7:52 AM EDT) POCT Glucose 132(H) 74 - 99 mg/dL 07/05/2025 7:54 AM EDT [facility] Comment:Accuracy of [...] Comment 07/05/2025 7:54 AM EDT [facility] [employer] Set Up Operator ID Fredy Field 7:54 AM EDT [facility] Device ID [id number] 07/05/2025 7:54 AM EDT [facility] Specimen Type POC Capillary 07/05/2025 7:54 AM EDT [facility] Blood Capillary blood specimen / Unknown 07/05/2025 7:52 AM EDT 07/05/2025 7:54 AM EDT us Fabiana Cunningham MD LAB POINT OF CARE TE ST DOCKED DEVICE UNSOLICITED RESULTS Final Result Performing Organization Address City/[facility] Co de Phone Number [facility] [address] [place] [address] * (ABNORMAL) Protime-INR (07/05/2025 4:01 AM EDT) Prothrombin Time 24.0(H) 12.0 - 14.3 sec 07/05/2025 4:38 AM EDT [facility] INR 2.1(H) 0.9 - 1.1 07/05/2025 4:38 AM EDT [facility] Blood Venous blood specimen / Unknown Venipuncture / Unknown 07/05/2025 4:01 AM EDT 07/05/2025 4:24 AM EDT Narrative [facility] - 07/05/2025 4:38 AM EDT OPTIMAL INR RANGES FOR PATIENT ON ORAL ANTICOAGULANT THERAPY Prevention of venous thromboembolism INR 2.0 to 3.0 In patients with heart disease: Atrial fibrillation INR 2.0 to 3.0 Valvular heart disease INR 2.0 to 3.0 Tissue heart valves INR 2.0 to 3.0 Mechanical prosthetic valves INR 2.5 to 3.5 Prevention of recurrent RI INR 2.5 to 3.5 us Fabiana Cunningham MD LAB BLOOD ORDERABLES Final Resu lt [facility] [address] [place] [address] * (ABNORMAL) Comprehensive metabolic panel (07/05/2025 4:01 AM EDT) Glucose, Plasma 147(H) 74 - 99 mg/dL 07/05/2025 4:48 AM EDT [facility] BUN, Plasma 28(H) 8 - 23 mg/dL 07/05/2025 4:48 AM EDT [facility] Creatinine, Plasma 1.25(H) 0.60 - 1.10 mg/dL 07/05/2025 4:48 AM EDT [facility] BUN/Creatinine Ratio 22 07/05/2025 4:48 AM EDT [facility] Sodium, Plasma 142 136 - 145 mmol/L 07/05/2025 4:48 AM EDT [facility] Potassium, Plasma 4.2 3.6 - 4.9 mmol/L 07/05/2025 4:48 AM EDT [facility] Chloride, Plasma 115(H) 97 - 107 mmol/L 07/05/2025 4:48 AM EDT [facility] CO2, Plasma 16(L) 22 - 29 mmol/L 07/05/2025 4:48 AM EDT [facility] Anion Gap 11 6 - 16 mmol/L 07/05/2025 4:48 AM EDT [facility] Total Calcium, Plasma 8.4(L) 8.9 - 10.2 mg/dL 07/05/2025 4:48 AM EDT [facility] Total Protein 6.0(L) 6.3 - 7.9 g/dL 07/05/2025 4:48 AM EDT [facility] Albumin, Plasma 3.7 3.5 - 5.2 g/dL 07/05/2025 4:48 AM EDT [facility] AST, Plasma 31 10 - 35 U/L 07/05/2025 4:48 AM EDT [facility] ALT, Plasma 11 10 - 35 U/L 07/05/2025 4:48 AM EDT [facility] Alkaline Phosphatase, Plasma 128 46 - 142 U/L 07/05/2025 4:48 AM EDT [facility] Total Bilirubin, Plasma 3.1(H) 0.2 - 1.1 mg/dL 07/05/2025 4:48 AM EDT [facility] eGFRcr 48.8 mL/min/1.7 3m*2 07/05/2025 4:48 AM EDT [facility] Comment:Reported eGFRcr in m L/min/1.73m2 is based the CKD-EPI 2020 equation that does not use a race coefficient. Blood Venous blood specimen / Unknown Venipuncture / Unknown 07/05/2025 4:01 AM EDT 07/05/2025 4:24 AM EDT us Chilo Morales MD LAB BLOOD ORDERABLES Final Result [facility] [address] [place] [id number] * Phosphorus, Plasma (07/05/2025 4:01 AM EDT) Phosphorus, Plasma 2.9 2.5 - 4.5 mg/dL 07/05/2025 4:48 AM EDT [facility] Blood Venous blood specimen / Unknown Venipuncture / Unknown 07/05/2025 4:01 AM EDT 07/05/2025 4:24 AM EDT us Chilo Morales MD LAB BLOOD ORDERABLES Final Result [facility] [address] [place] [address] * (ABNORMAL) Magnesium, Plasma (07/05/2025 4:01 AM EDT) Pathologist [facility] Magnesium, Plasma 1.8(L) 1.9 - 2.4 mg/dL 07/05/2025 4:48 AM EDT [facility] Blood Venous blood specimen / Unknown Venipuncture / Unknown 07/05/2025 4:01 AM EDT 07/05/2025 4:24 AM EDT Chilo Morales MD LAB BLOOD ORDERABLES Final Result Performing Organization Address City/[facility] Co de Phone Number [facility] [address] [place] [address] * (ABNORMAL) CBC and Differential (07/05/2025 4:01 AM EDT) [facility] WBC Count 2.91(L) 3.70 - 10.30 10*3/uL LAB HEMATOLOGY METHOD 07/05/2025 4:35 AM EDT [facility] RBC Count 2.55(L) 3.90 - 5.20 10*6/uL LAB HEMATOLOGY METHOD 07/05/2025 4:35 AM EDT [facility] HGB 8.0(L) 11.2 - 15.7 g/dL LAB HEMATOLOGY METHOD 07/05/2025 4:35 AM EDT [facility] HCT 25.3(L) 34.0 - 45.0 % LAB HEMATOLOGY METHOD 07/05/2025 4:35 AM EDT [facility] Platelet Count 46(L) 155 - 369 10*3/uL LAB HEMATOLOGY METHOD 07/05/2025 4:35 AM EDT [facility] MCV 99(H) 79 - 98 fL LAB HEMATOLOGY METHOD 07/05/2025 4:35 AM EDT [facility] Comment:Results inconsistent with previous lab findings. MCH 31.4 26.0 - 32.0 pg LAB HEMATOLOGY METHOD 07/05/2025 4:35 AM EDT [facility] MCHC 31.6 30.7 - 35.5 g/dL LAB HEMATOLOGY METHOD 07/05/2025 4:35 AM EDT [facility] RDW 15.9(H) 11.5 - 14.5 % LAB HEMATOLOGY METHOD 07/05/2025 4:35 AM EDT [facility] MPV 11.4 8.8 - 12.5 fL LAB HEMATOLOGY METHOD 07/05/2025 4:35 AM EDT [facility] nRBC 0.0 <=0.0 per 100 WBCs LAB HEMATOLOGY METHOD 07/05/2025 4:35 AM EDT [facility] Differential Type Automated LAB HEMATOLOGY METHOD 07/05/2025 4:35 AM EDT [facility] Neutrophils % 64 % LAB HEMATOLOGY METHOD 07/05/2025 4:35 AM EDT [facility] Lymphocytes % 18 % LAB HEMATOLOGY METHOD 07/05/2025 4:35 AM EDT [facility] Monocytes % 15 % LAB HEMATOLOGY METHOD 07/05/2025 4:35 AM EDT [facility] Eosinophils % 2 % LAB HEMATOLOGY METHOD 07/05/2025 4:35 AM EDT [facility] Basophils % 1 % LAB HEMATOLOGY METHOD 07/05/2025 4:35 AM EDT [facility] Immature Granulocytes % 0 % LAB HEMATOLOGY METHOD 07/05/2025 4:35 AM EDT [facility] Neutrophils Absolute 1.84 1.60 - 6.10 10*3/uL LAB HEMATOLOGY METHOD 07/05/2025 4:35 AM EDT [facility] Lymphocytes Absolute 0.53(L) 1.20 - 3.90 10*3/uL LAB HEMATOLOGY METHOD 07/05/2025 4:35 AM EDT [facility] Monocytes Absolute 0.44 0.30 - 0.90 10*3/uL LAB HEMATOLOGY METHOD 07/05/2025 4:35 AM EDT [facility] Eosinophils Absolute 0.07 0.00 - 0.50 10*3/uL LAB HEMATOLOGY METHOD 07/05/2025 4:35 AM EDT [facility] Basophils Absolute 0.02 0.00 - 0.10 10*3/uL LAB HEMATOLOGY METHOD 07/05/2025 4:35 AM EDT [facility] Immature Granulocytes Absolute 0.01 0.00 - 0.06 10*3/uL LAB HEMATOLOGY METHOD 07/05/2025 4:35 AM EDT [facility] Blood Venous blood specimen / Unknown Venipuncture / Unknown 07/05/2025 4:01 AM EDT 07/05/2025 4:24 AM EDT Narrative [facility] - 07/05/2025 4:35 AM EDT Therapeutic decision making should be based on absolute values, rather than percentages. us Chilo Morales MD LAB BLOOD ORDERABLES Final Result Performing Organization Address [facility] Co de Phone Number [facility] [address] [place] [address] * (ABNORMAL) POCT glucose meter (07/04/2025 8:46 [...] Comment 07/04/2025 8:48 PM EDT [facility] Centerless Grinder Set Up Operator ID Love Gore 8:48 PM EDT [facility] Device ID [id number] 07/04/2025 8:48 PM EDT [facility] Specimen Type POC Capillary 07/04/2025 8:48 PM EDT [facility] Blood Capillary blood specimen / Unknown 07/04/2025 8:46 PM EDT 07/04/2025 8:48 PM EDT us Fabiana Cunningham MD LAB POINT OF CARE TE ST DOCKED DEVICE UNSOLICITED RESULTS Final Result Performing Organization Address City/[facility]/ZIP Co de Phone Number [facility] [address] [place] [address] * (ABNORMAL) POCT glucose meter (07/04/2025 4:55 PM EDT) POCT Glucose 219(H) 74 - 99 mg/dL [...] Comment 07/04/2025 6:43 PM EDT [facility] Centerless Grinder Set Up Operator ID Fredy Field 6:43 PM EDT [facility] Device ID [id number] 07/04/2025 6:43 PM EDT [facility] Specimen Type POC Capillary 07/04/2025 6:43 PM EDT [facility] Blood Capillary blood specimen / Unknown 07/04/2025 4:55 PM EDT 07/04/2025 6:43 PM EDT us Fabiana Cunningham MD LAB POINT OF CARE TE ST DOCKED DEVICE UNSOLICITED RESULTS Final Result Performing Organization Address City/[facility] Phone Number [facility] [address] [place] [address] * POCT glucose meter (07/04/2025 2:04 PM EDT) [facility] POCT Glucose 86 74 - 99 mg/dL [...] Comment 07/04/2025 2:05 PM EDT [facility] Centerless Grinder Set Up Operator ID Fredy Field 2:05 PM EDT [facility] Device ID [id number] 07/04/2025 2:05 PM EDT [facility] Specimen Type POC Capillary 07/04/2025 2:05 PM EDT [facility] Blood Capillary blood specimen / Unknown 07/04/2025 2:04 PM EDT 07/04/2025 2:05 PM EDT us Fabiana Cunningham MD LAB POINT OF CARE TE ST DOCKED DEVICE UNSOLICITED RESULTS Final Result [facility] [address] [place] [address] * XR Chest 1 View (07/04/2025 11:43 [...] past medical history of CKD, Depression, Hypoparathyroidism, JOANTHAN Type 2 diabetes mellitus, asthma, osteoarthritis and 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 She is presenting to on 06/25/25 from Nephrology clinic with concern for CARLOTTA and inability to care for self. She was already scheduled as outpatient for thoracentesis and paracentesis on 07/04/25. She presents today for thoracentesis and paracentesis. TECHNIQUE: Wink Cutter Operator: Maria Dolores Ontiveros APRN Secondary Centerless Grinder Set Up Operator: None. Nurse: Mark Technologist: Dayne Phillips Dose: [...] presents today for thoracentesis and paracentesis. TECHNIQUE: Wink Cutter Operator: Maria Dolores Ontiveros APRN Secondary Centerless Grinder Set Up Operator: None. Nurse: Mark Technologist: Dayne Phillips Dose: [...] presents today for thoracentesis and paracentesis. TECHNIQUE: Wink Cutter Operator: Maria Dolores Ontiveros APRN Secondary Centerless Grinder Set Up Operator: None. Nurse: Mark Technologist: Dayne Phillips Dose: [...] presents today for thoracentesis and paracentesis. TECHNIQUE: Wink Cutter Operator: Maria Dolores Ontiveros APRN Secondary Centerless Grinder Set Up Operator: None. Nurse: Mark Technologist: Dayne Phillips Dose: [...] LAB HEMATOLOGY METHOD 07/05/2025 1:43 PM EDT [facility] Specimen Source, Body Fluid Pleural, Right LAB HEMATOLOGY METHOD 07/05/2025 1:43 PM EDT [facility] Clinical Diagnosis, Body Fluid Pleural effusion LAB HEMATOLOGY METHOD 07/05/2025 1:43 PM EDT [facility] Interpretation , Body Fluid 07/05/2025 1:43 PM EDT [facility] Pathologist Signature, Body Fluid 07/05/2025 1:43 PM EDT [facility] Comment:Reviewed by: Onur Roque MD LAB CP ASR DISCLAIMER No 07/05/2025 1:43 PM EDT [facility] Specimen Source, Other Free Text No evidence of malignancy, Chronic inflammatory cells Lymphocytosis, Moderate blood 07/05/2025 1:43 PM EDT [facility] Body Fluid Structure of right pleural cavity / Unknown Non-blood Collection / Unknown 07/04/2025 10:48 AM EDT 07/04/2025 12:11 PM EDT us Fabiana Cunningham MD LAB BODY FLUIDS AND STOOLS VINCENT CATES Final Result [facility] [address] [place] [address] * Lactate Dehydrogenase, Pleural Fluid - Right (07/04/2025 10:48 AM EDT) LDH, Fluid 69 U/L 07/04/2025 4:42 PM EDT [facility] Pleural Fluid Structure of right pleural cavity / Unknown Non-blood Collection / Unknown 07/04/2025 10:48 AM EDT 07/04/2025 12:11 PM EDT Narrative [facility] - 07/04/2025 4:42 [...] the following criteria are present: (1) pleural jpyjj-us-ldvms protein ratio of >0.5, (2) pleural nakvx-ae-fhtib LDH ratio of >0.6, or (3) a pleural fluid LDH activity that is >2/3 the upper limit of a normal serum LDH activity. Light's criteria may misclassify ~25% of transudates as exudates in heart failure. These can be identified by calculating a cwfvm-kv-kbufpks albumin gradient (>1.2 g/dL) and/or a aamcl-uq-zeodd protein gradient (>3.1 g/dL). Fabiana Cunningham MD LAB BODY FLUIDS AND STOOLS VINCENT CATES Final Result Performing Organization Address [facility] Co de Phone Number [facility] [address] [place] [address] * Total Protein, Pleural Fluid - Pleural Right (07/04/2025 10:48 AM EDT) Total Protein, Fluid 2.1 g/dL 07/04/2025 4:42 PM EDT [facility] Pleural Fluid Structure of right pleural cavity / Unknown Non-blood Collection / Unknown 07/04/2025 10:48 AM EDT 07/04/2025 12:11 PM EDT Narrative [facility] - 07/04/2025 4:42 PM EDT This test was developed and its performance characteristics determined by [facility]. The U.S. Food and Drug Administration has not approved or cleared this test. However, FDA clearance or approval is not currently required for clinical use. The results are not intended to be used as the sole means for clinical diagnosis or patient management decisions. Fabiana Cunningham MD LAB BODY FLUIDS AND STOOLS VINCENT CATES Final Result Performing Organization Address [facility] Co de Phone Number [facility] [address] [place] [address] * Body Fluid Culture and Gram Stain - Pleural Right (07/04/2025 10:48 AM EDT) Culture No growth at day 4 2024 7:42 AM EDT [facility] Gram Stain Result Few Polymorphonuclear leukocytes 07/07/2025 7:42 AM EDT [facility] Gram Stain Result No organisms seen 07/07/2025 7:42 AM EDT [facility] Pleural Fluid Specimen from pleura obtained by thoracentesis / Unknown Non-blood Collection / Unknown 07/04/2025 10:48 AM EDT 07/04/2025 12:41 PM EDT Fabiana Cunningham MD LAB MICROBIOLOGY - GENERAL VINCENT CATES Final Result [facility] [address] [place] [address] * (ABNORMAL) Body Fluid Cell Count w/ Diff - Pleural Right (07/04/2025 10:48 AM EDT) Color, Body fluid [place] LAB HEMATOLOGY METHOD 07/04/2025 5:03 PM EDT [facility] Appearance, Body fluid Cloudy(A) LAB HEMATOLOGY METHOD 07/04/2025 5:03 PM EDT [facility] Volume, Body fluid 90.0 cc LAB HEMATOLOGY METHOD 07/04/2025 5:03 PM EDT [facility] Fluid Container Specimen received in miscellaneous container LAB HEMATOLOGY METHOD 07/04/2025 5:03 PM EDT [facility] Red Blood Cell Count, Body fluid 16,000 uL LAB HEMATOLOGY METHOD 07/04/2025 5:03 PM EDT [facility] Total Nucleated Cell Count, Body fluid 380 uL LAB HEMATOLOGY METHOD 07/04/2025 5:03 PM EDT [facility] Neutrophils %, Body fluid 7 % LAB HEMATOLOGY METHOD 07/04/2025 5:03 PM EDT [facility] Lymphocytes %, Body fluid 63 % LAB HEMATOLOGY METHOD 07/04/2025 5:03 PM EDT [facility] Monocytes/Macr ophages %, Body fluid 29 % LAB HEMATOLOGY METHOD 07/04/2025 5:03 PM EDT [facility] Eosinophils %, Body fluid 0 % LAB HEMATOLOGY METHOD 07/04/2025 5:03 PM EDT [facility] Lining/Mesothe lial Cells %, Body fluid 1 % LAB HEMATOLOGY METHOD 07/04/2025 5:03 PM EDT [facility] Neutrophils Absolute (PMN), Body fluid 27 uL LAB HEMATOLOGY METHOD 07/04/2025 5:03 PM EDT [facility] Lymphocytes Absolute, Body fluid 239 uL LAB HEMATOLOGY METHOD 07/04/2025 5:03 PM EDT [facility] Monocytes/Macr ophages Absolute, Body fluid 110 uL LAB HEMATOLOGY METHOD 07/04/2025 5:03 PM EDT [facility] Eosinophils Absolute, Body fluid 0 uL LAB HEMATOLOGY METHOD 07/04/2025 5:03 PM EDT [facility] Basophils Absolute, Body fluid 0 uL LAB HEMATOLOGY METHOD 07/04/2025 5:03 PM EDT [facility] Lining/Mesothe lial Cells Absolute, Body fluid 4 uL LAB HEMATOLOGY METHOD 07/04/2025 5:03 PM EDT [facility] Comment, Body fluid None LAB HEMATOLOGY METHOD 07/04/2025 5:03 PM EDT [facility] Comment:This is an appended report. These results have been appended to a previously preliminary verified report. Basophils %, Body fluid 0 % LAB HEMATOLOGY METHOD 07/04/2025 5:03 PM EDT [facility] Body Fluid Structure of right pleural cavity / Unknown Non-blood Collection / Unknown 07/04/2025 10:48 AM EDT 07/04/2025 12:11 PM EDT Fabiana Cunningham MD LAB BODY FLUIDS AND STOOLS ORDERABLES NO SPECIMEN TYPE/SOURCE Final Result [facility] [address] [place] [address] * Body fluid, cytospin, pathologist interpretation (07/04/2025 10:08 AM EDT) Specimen Type Body Fluid LAB HEMATOLOGY METHOD 07/05/2025 3:43 PM EDT [facility] Specimen Source, Body Fluid Peritoneal Fluid LAB HEMATOLOGY METHOD 07/05/2025 3:43 PM EDT [facility] Clinical Diagnosis, Body Fluid Ascites LAB HEMATOLOGY METHOD 07/05/2025 3:43 PM EDT [facility] Interpretation , Body Fluid No evidence of malignancy Predominantly chronic inflammatory cells Moderate blood 07/05/2025 3:43 PM EDT [facility] Pathologist Signature, Body Fluid 07/05/2025 3:43 PM EDT [facility] Comment:Reviewed by: Kadie dobbs MD LAB CP ASR DISCLAIMER No 07/05/2025 3:43 PM EDT [facility] Body Fluid Peritoneal fluid / Unknown Non-blood Collection / Unknown 07/04/2025 10:08 AM EDT 07/04/2025 12:08 PM EDT Fabiana Cunningham MD LAB BODY FLUIDS AND STOOLS VINCENT CATES Final Result Performing Organization Address [facility]/ZIP Co de Phone Number [facility] [address] [place] [address] * Protein - Ascites (07/04/2025 10:08 AM EDT) Total Protein, Fluid 2.1 g/dL 07/04/2025 3:52 PM EDT [facility] Ascites Peritoneal cavity structure / Unknown 07/04/2025 10:08 AM EDT 07/04/2025 12:10 PM EDT Narrative [facility] - 07/04/2025 3:52 PM EDT This test was developed and its performance characteristics determined by [facility]. The U.S. Food and Drug Administration has not approved or cleared this test. However, FDA clearance or approval is not currently required for clinical use. The results are not intended to be used as the sole means for clinical diagnosis or patient management decisions. Fabiana Cunningham MD LAB BODY FLUIDS AND STOOLS QIANLoyd LOAN Final Result Performing Organization Address [facility] Co de Phone Number [facility] [address] [place] [address] * Glucose - Ascites (07/04/2025 10:08 AM EDT) Glucose, Fluid 112 mg/dL 07/04/2025 3:52 PM EDT [facility] Ascites Peritoneal cavity structure / Unknown 07/04/2025 10:08 AM EDT 07/04/2025 12:10 PM EDT Narrative [facility] - 07/04/2025 3:52 [...] VINCENT CATES Final Result Performing Organization Address [facility] Co de Phone Number [facility] [address] [place] [address] * LDH - Ascites (07/04/2025 10:08 AM EDT) LDH, Fluid 63 U/L 07/04/2025 3:52 PM EDT [facility] Ascites Peritoneal cavity structure / Unknown 07/04/2025 10:08 AM EDT 07/04/2025 12:10 PM EDT Narrative [facility] - 07/04/2025 3:52 [...] VINCENT CATES Final Result Performing Organization Address [facility] Co de Phone Number [facility] [address] [place] [address] * Body Fluid Culture and Gram Stain (07/04/2025 10:08 AM EDT) Culture No growth at day 4 2024 7:42 AM EDT [facility] Gram Stain Result Few Polymorphonuclear leukocytes 07/07/2025 7:42 AM EDT [facility] Gram Stain Result No organisms seen 07/07/2025 7:42 AM EDT [facility] Peritoneal Fluid Peritoneal cavity structure / Unknown Non-blood Collection / Unknown 07/04/2025 10:08 AM EDT 07/04/2025 12:42 PM EDT us Fabiana Cunningham MD LAB MICROBIOLOGY - GENERAL ORDLoyd CATES Final Result Performing Organization Address City/[facility]/ZIP Co de Phone Number [facility] [address] [place] [address] * (ABNORMAL) Body Fluid Cell Count With Diff - Ascites (07/04/2025 10:08 AM EDT) Color, Body fluid [place] LAB HEMATOLOGY METHOD 07/04/2025 3:41 PM EDT [facility] Appearance, Body fluid Cloudy(A) LAB HEMATOLOGY METHOD 07/04/2025 3:41 PM EDT [facility] Volume, Body fluid 20.0 cc LAB HEMATOLOGY METHOD 07/04/2025 3:41 PM EDT [facility] Fluid Container Specimen received in miscellaneous container LAB HEMATOLOGY METHOD 07/04/2025 3:41 PM EDT [facility] Red Blood Cell Count, Body fluid 11,000 uL LAB HEMATOLOGY METHOD 07/04/2025 3:41 PM EDT [facility] Total Nucleated Cell Count, Body fluid 296 uL LAB HEMATOLOGY METHOD 07/04/2025 3:41 PM EDT [facility] Neutrophils %, Body fluid 11 % LAB HEMATOLOGY METHOD 07/04/2025 3:41 PM EDT [facility] Lymphocytes %, Body fluid 56 % LAB HEMATOLOGY METHOD 07/04/2025 3:41 PM EDT [facility] Monocytes/Macr ophages %, Body fluid 30 % LAB HEMATOLOGY METHOD 07/04/2025 3:41 PM EDT [facility] Eosinophils %, Body fluid 1 % LAB HEMATOLOGY METHOD 07/04/2025 3:41 PM EDT [facility] Lining/Mesothe lial Cells %, Body fluid 2 % LAB HEMATOLOGY METHOD 07/04/2025 3:41 PM EDT [facility] Neutrophils Absolute (PMN), Body fluid 33 uL LAB HEMATOLOGY METHOD 07/04/2025 3:41 PM EDT [facility] Lymphocytes Absolute, Body fluid 166 uL LAB HEMATOLOGY METHOD 07/04/2025 3:41 PM EDT [facility] Monocytes/Macr ophages Absolute, Body fluid 89 uL LAB HEMATOLOGY METHOD 07/04/2025 3:41 PM EDT [facility] Eosinophils Absolute, Body fluid 3 uL LAB HEMATOLOGY METHOD 07/04/2025 3:41 PM EDT [facility] Basophils Absolute, Body fluid 0 uL LAB HEMATOLOGY METHOD 07/04/2025 3:41 PM EDT [facility] Lining/Mesothe lial Cells Absolute, Body fluid 6 uL LAB HEMATOLOGY METHOD 07/04/2025 3:41 PM EDT [facility] Basophils %, Body fluid 0 % LAB HEMATOLOGY METHOD 07/04/2025 3:41 PM EDT [facility] Body Fluid Peritoneal fluid / Unknown Non-blood Collection / Unknown 07/04/2025 10:08 AM EDT 07/04/2025 12:08 PM EDT us Fabiana Cunningham MD LAB BODY FLUIDS AND STOOLS ORDERABLES NO SPECIMEN TYPE/SOURCE Final Result Performing Organization Address City/[facility]/ZIP Co de Phone Number [facility] [address] [place] [address] * (ABNORMAL) POCT glucose meter (07/04/2025 8:07 [...] Comment 07/04/2025 8:09 AM EDT [facility]ALTH[facility] Centerless Grinder Set Up Operator ID Fredy Field 8:09 AM EDT HEALTHCARE LAB Device ID [id number] 07/04/2025 8:09 AM EDT [facility] Specimen Type POC Capillary 07/04/2025 8:09 AM EDT [facility] Blood Capillary blood specimen / Unknown 07/04/2025 8:07 AM EDT 07/04/2025 8:09 AM EDT us Fabiana Cunningham MD LAB POINT OF CARE TE ST DOCKED DEVICE UNSOLICITED RESULTS Final Result Performing Organization Address City/[facility]/ZIP Co de Phone Number [facility] [address] [place] [address] * (ABNORMAL) Protime-INR (07/04/2025 4:47 AM EDT) Prothrombin Time 24.0(H) 12.0 - 14.3 sec 07/04/2025 5:51 AM EDT [facility] INR 2.1(H) 0.9 - 1.1 07/04/2025 5:51 AM EDT [facility] Blood Venous blood specimen / Unknown Venipuncture / Unknown 07/04/2025 4:47 AM EDT 07/04/2025 4:55 AM EDT [facility] - 07/04/2025 5:51 AM EDT OPTIMAL INR RANGES FOR PATIENT ON ORAL ANTICOAGULANT THERAPY Prevention of venous thromboembolism INR 2.0 to 3.0 In patients with heart disease: Atrial fibrillation INR 2.0 to 3.0 Valvular heart disease INR 2.0 to 3.0 Tissue heart valves INR 2.0 to 3.0 Mechanical prosthetic valves INR 2.5 to 3.5 Prevention of recurrent RI INR 2.5 to 3.5 us Fabiana Cunningham MD LAB BLOOD ORDERABLES Final Resu lt [facility] [address] [place] [id number] * (ABNORMAL) Comprehensive metabolic panel (07/04/2025 4:47 AM EDT) Pathologist [facility] Glucose, Plasma 111(H) 74 - 99 mg/dL 07/04/2025 5:23 AM EDT [facility] BUN, Plasma 28(H) 8 - 23 mg/dL 07/04/2025 5:23 AM EDT [facility] Creatinine, Plasma 1.32(H) 0.60 - 1.10 mg/dL 07/04/2025 5:23 AM EDT [facility] BUN/Creatinine Ratio 21 07/04/2025 5:23 AM EDT [facility] Sodium, Plasma 138 136 - 145 mmol/L 07/04/2025 5:23 AM EDT [facility] Potassium, Plasma 4.1 3.6 - 4.9 mmol/L 07/04/2025 5:23 AM EDT [facility] Chloride, Plasma 112(H) 97 - 107 mmol/L 07/04/2025 5:23 AM EDT [facility] CO2, Plasma 16(L) 22 - 29 mmol/L 07/04/2025 5:23 AM EDT [facility] Anion Gap 10 6 - 16 mmol/L 07/04/2025 5:23 AM EDT [facility] Total Calcium, Plasma 8.7(L) 8.9 - 10.2 mg/dL 07/04/2025 5:23 AM EDT [facility] Total Protein 6.2(L) 6.3 - 7.9 g/dL 07/04/2025 5:23 AM EDT [facility] Albumin, Plasma 3.8 3.5 - 5.2 g/dL 07/04/2025 5:23 AM EDT [facility] AST, Plasma 31 10 - 35 U/L 07/04/2025 5:23 AM EDT [facility] ALT, Plasma 14 10 - 35 U/L 07/04/2025 5:23 AM EDT [facility] Alkaline Phosphatase, Plasma 139 46 - 142 U/L 07/04/2025 5:23 AM EDT [facility] Total Bilirubin, Plasma 3.1(H) 0.2 - 1.1 mg/dL 07/04/2025 5:23 AM EDT [facility] eGFRcr 45.7 mL/min/1.7 3m*2 07/04/2025 5:23 AM EDT [facility] Comment:Reported eGFRcr in m L/min/1.73m2 is based the CKD-EPI 2020 equation that does not use a race coefficient. Blood Venous blood specimen / Unknown Venipuncture / Unknown 07/04/2025 4:47 AM EDT 07/04/2025 4:55 AM EDT us Chilo Morales MD LAB BLOOD ORDERABLES Final Result [facility] [address] [place] [address] * Phosphorus, Plasma (07/04/2025 4:47 AM EDT) Phosphorus, Plasma 3.4 2.5 - 4.5 mg/dL 07/04/2025 5:23 AM EDT [facility] Blood Venous blood specimen / Unknown Venipuncture / Unknown 07/04/2025 4:47 AM EDT 07/04/2025 4:55 AM EDT us Chilo Morales MD LAB BLOOD ORDERABLES Final Result Performing Organization Address City/[facility]/ZIP Co de Phone Number HEALTHCARE LAB [address] [place] [address] * (ABNORMAL) Magnesium, Plasma (07/04/2025 4:47 AM EDT) Pathologist [facility] Magnesium, Plasma 1.8(L) 1.9 - 2.4 mg/dL 07/04/2025 5:23 AM EDT [facility] Blood Venous blood specimen / Unknown Venipuncture / Unknown 07/04/2025 4:47 AM EDT 07/04/2025 4:55 AM EDT Chilo Morales MD LAB BLOOD ORDERABLES Final Result Performing Organization Address [facility] Co de Phone Number [facility]CARE [facility] [address] [place] [address] * (ABNORMAL) CBC and Differential (07/04/2025 4:47 AM EDT) Pathologist [facility] WBC Count 2.46(L) 3.70 - 10.30 10*3/uL LAB HEMATOLOGY METHOD 07/04/2025 4:58 AM EDT [facility] RBC Count 2.55(L) 3.90 - 5.20 10*6/uL LAB HEMATOLOGY METHOD 07/04/2025 4:58 AM EDT [facility] HGB 7.9(L) 11.2 - 15.7 g/dL LAB HEMATOLOGY METHOD 07/04/2025 4:58 AM EDT [facility] HCT 23.8(L) 34.0 - 45.0 % LAB HEMATOLOGY METHOD 07/04/2025 4:58 AM EDT [facility] Platelet Count 39(L) 155 - 369 10*3/uL LAB HEMATOLOGY METHOD 07/04/2025 4:58 AM EDT [facility] MCV 93 79 - 98 fL LAB HEMATOLOGY METHOD 07/04/2025 4:58 AM EDT [facility] MCH 31.0 26.0 - 32.0 pg LAB HEMATOLOGY METHOD 07/04/2025 4:58 AM EDT [facility] MCHC 33.2 30.7 - 35.5 g/dL LAB HEMATOLOGY METHOD 07/04/2025 4:58 AM EDT [facility] RDW 15.6(H) 11.5 - 14.5 % LAB HEMATOLOGY METHOD 07/04/2025 4:58 AM EDT [facility] MPV 11.5 8.8 - 12.5 fL LAB HEMATOLOGY METHOD 07/04/2025 4:58 AM EDT [facility] nRBC 0.0 <=0.0 per 100 WBCs LAB HEMATOLOGY METHOD 07/04/2025 4:58 AM EDT [facility] Differential Type Automated LAB HEMATOLOGY METHOD 07/04/2025 4:58 AM EDT [facility] Neutrophils % 58 % LAB HEMATOLOGY METHOD 07/04/2025 4:58 AM EDT [facility] Lymphocytes % 22 % LAB HEMATOLOGY METHOD 07/04/2025 4:58 AM EDT [facility] Monocytes % 18 % LAB HEMATOLOGY METHOD 07/04/2025 4:58 AM EDT [facility] Eosinophils % 2 % LAB HEMATOLOGY METHOD 07/04/2025 4:58 AM EDT [facility] Basophils % 0 % LAB HEMATOLOGY METHOD 07/04/2025 4:58 AM EDT [facility] Immature Granulocytes % 0 % LAB HEMATOLOGY METHOD 07/04/2025 4:58 AM EDT [facility] Neutrophils Absolute 1.40(L) 1.60 - 6.10 10*3/uL LAB HEMATOLOGY METHOD 07/04/2025 4:58 AM EDT [facility] Lymphocytes Absolute 0.55(L) 1.20 - 3.90 10*3/uL LAB HEMATOLOGY METHOD 07/04/2025 4:58 AM EDT [facility] Monocytes Absolute 0.43 0.30 - 0.90 10*3/uL LAB HEMATOLOGY METHOD 07/04/2025 4:58 AM EDT [facility] Eosinophils Absolute 0.06 0.00 - 0.50 10*3/uL LAB HEMATOLOGY METHOD 07/04/2025 4:58 AM EDT [facility] Basophils Absolute 0.01 0.00 - 0.10 10*3/uL LAB HEMATOLOGY METHOD 07/04/2025 4:58 AM EDT [facility] Immature Granulocytes Absolute 0.01 0.00 - [...] BLOOD ORDERABLES Final Result Performing Organization Address [facility] Co de Phone Number [facility]ARE [facility] [address] [place] [address] * (ABNORMAL) POCT glucose meter (07/03/2025 8:36 PM EDT) [facility] POCT Glucose 109(H) 74 - 99 mg/dL [...] Comment 07/03/2025 8:37 PM EDT [facility] [employer] Up Operator ID Margarette Angel 07/03/2025 8:37 PM EDT [facility] Device ID [id number] 07/03/2025 8:37 PM EDT [facility] Specimen Type POC Capillary 07/03/2025 8:37 PM EDT [facility] Blood Capillary blood specimen / Unknown 07/03/2025 8:36 PM EDT 07/03/2025 8:37 PM EDT us Fabiana Cunningham MD LAB POINT OF CARE TE ST DOCKED DEVICE UNSOLICITED RESULTS Final Result Performing Organization Address City/[facility] Co de Phone Number [facility]ARE [facility] [address] [place] [address] * XR Abdomen 1 View (07/03/2025 7:02 [...] 07/03/2025 4:48 PM EDT [facility] [employer] Set Up Operator ID Reyes Elias 07/03/2025 4:48 PM EDT [facility] Device ID [id number] 07/03/2025 4:48 PM EDT [facility] Specimen Type POC Capillary 07/03/2025 4:48 PM EDT [facility] Blood Capillary blood specimen / Unknown 07/03/2025 4:46 PM EDT 07/03/2025 4:48 PM EDT us Fabiana Cunningham MD LAB POINT OF CARE TE ST DOCKED DEVICE UNSOLICITED RESULTS Final Result Performing Organization Address City/[facility] Co de Phone Number [facility] [address] [place] [address] * (ABNORMAL) POCT glucose meter (07/03/2025 11:50 AM EDT) POCT Glucose 221(H) 74 - 99 mg/dL 07/03/2025 11:51 AM EDT [facility] Comment:Accuracy of a [...] Comment 07/03/2025 11:51 AM EDT [facility] [employer] Set Up Operator ID Reyes Elias 07/03/2025 11:51 AM EDT [facility] Device ID [id number] 07/03/2025 11:51 AM EDT [facility] Specimen Type POC Capillary 07/03/2025 11:51 AM EDT [facility] Blood Capillary blood specimen / Unknown 07/03/2025 11:50 AM EDT 07/03/2025 11:51 AM EDT us Fabiana Cunningham MD LAB POINT OF CARE TE ST DOCKED DEVICE UNSOLICITED RESULTS Final Result Performing Organization Address City/[facility] Co de Phone Number [facility] [address] [place] [address] * (ABNORMAL) POCT glucose meter (07/03/2025 8:14 [...] Comment 07/03/2025 8:16 AM EDT [facility] [employer] Set Up Operator ID Reyes Elias 07/03/2025 8:16 AM EDT [facility] LAB Device ID [id number] 07/03/2025 8:16 AM EDT [facility] Specimen Type POC Capillary 07/03/2025 8:16 AM EDT [facility] Blood Capillary blood specimen / Unknown 07/03/2025 8:14 AM EDT 07/03/2025 8:16 AM EDT Fabiana Cunningham MD LAB POINT OF CARE TE ST DOCKED DEVICE UNSOLICITED RESULTS Final Result Performing Organization Address City/State/[facility] Co de Phone Number [facility] [address] [place] [address] * (ABNORMAL) Protime-INR (07/03/2025 4:25 AM EDT) [...] INR 2.5 to 3.5 Prevention of recurrent RI INR 2.5 to 3.5 us Fabiana Cunningham MD LAB BLOOD ORDERABLES Final Resu lt [facility] [address] [place] [address] * (ABNORMAL) Comprehensive metabolic panel (07/03/2025 4:25 AM EDT) Glucose, Plasma 148(H) 74 - 99 mg/dL 07/03/2025 4:59 AM EDT [facility] BUN, Plasma 32(H) 8 - 23 mg/dL 07/03/2025 4:59 AM EDT [facility] Creatinine, Plasma 1.53(H) 0.60 - 1.10 mg/dL 07/03/2025 4:59 AM EDT [facility] BUN/Creatinine Ratio 21 07/03/2025 4:59 AM EDT [facility] Sodium, Plasma 141 136 - 145 mmol/L 07/03/2025 4:59 AM EDT [facility] Potassium, Plasma 4.3 3.6 - 4.9 mmol/L 07/03/2025 4:59 AM EDT [facility] Chloride, Plasma 111(H) 97 - 107 mmol/L 07/03/2025 4:59 AM EDT [facility] CO2, Plasma 19(L) 22 - 29 mmol/L 07/03/2025 4:59 AM EDT [facility] Anion Gap 11 6 - 16 mmol/L 07/03/2025 4:59 AM EDT [facility] Total Calcium, Plasma 8.7(L) 8.9 - 10.2 mg/dL 07/03/2025 4:59 AM EDT [facility] Total Protein 6.2(L) 6.3 - 7.9 g/dL 07/03/2025 4:59 AM EDT [facility] Albumin, Plasma 3.5 3.5 - 5.2 g/dL 07/03/2025 4:59 AM EDT [facility] AST, Plasma 36(H) 10 - 35 U/L 07/03/2025 4:59 AM EDT [facility] ALT, Plasma 19 10 - 35 U/L 07/03/2025 4:59 AM EDT [facility] Alkaline Phosphatase, Plasma 164(H) 46 - [...] BLOOD ORDERABLES Final Result Performing Organization Address [facility] de Phone Number [facility] [address] [place] [address] * Phosphorus, Plasma (07/03/2025 4:25 AM EDT) Phosphorus, Plasma 3.3 2.5 - 4.5 mg/dL 07/03/2025 4:59 AM EDT [facility] Blood Venous blood specimen / Unknown Venipuncture / Unknown 07/03/2025 4:25 AM EDT 07/03/2025 4:29 AM EDT us Chilo Morales MD LAB BLOOD ORDERABLES Final Result Performing Organization Address [facility] de Phone Number [facility] [address] [place] [id number] * Magnesium, Plasma (07/03/2025 4:25 AM EDT) Magnesium, Plasma 2.0 1.9 - 2.4 mg/dL 07/03/2025 4:59 AM EDT [facility] Blood Venous blood specimen / Unknown Venipuncture / Unknown 07/03/2025 4:25 AM EDT 07/03/2025 4:29 AM EDT us Chilo Morales MD LAB BLOOD ORDERABLES Final Result [facility] [address] [place] [address] * (ABNORMAL) CBC and Differential (07/03/2025 4:25 AM EDT) WBC Count 2.60(L) 3.70 - 10.30 10*3/uL LAB HEMATOLOGY METHOD 07/03/2025 4:32 AM EDT [facility] RBC Count 2.56(L) 3.90 - 5.20 10*6/uL LAB HEMATOLOGY METHOD 07/03/2025 4:32 AM EDT [facility] HGB 7.9(L) 11.2 - 15.7 g/dL LAB HEMATOLOGY METHOD 07/03/2025 4:32 AM EDT [facility] HCT 23.6(L) 34.0 - 45.0 % LAB HEMATOLOGY METHOD 07/03/2025 4:32 AM EDT [facility]ALTH[facility] Platelet Count 43(L) 155 - 369 10*3/uL LAB HEMATOLOGY METHOD 07/03/2025 4:32 AM EDT [facility] MCV 92 79 - 98 fL LAB HEMATOLOGY METHOD 07/03/2025 4:32 AM EDT [facility] MCH 30.9 26.0 - 32.0 pg LAB HEMATOLOGY METHOD 07/03/2025 4:32 AM EDT [facility] MCHC 33.5 30.7 - 35.5 g/dL LAB HEMATOLOGY METHOD 07/03/2025 4:32 AM EDT [facility] RDW 15.0(H) 11.5 - 14.5 % LAB HEMATOLOGY METHOD 07/03/2025 4:32 AM EDT [facility] MPV 11.8 8.8 - 12.5 fL LAB HEMATOLOGY METHOD 07/03/2025 4:32 AM EDT [facility] nRBC 0.0 <=0.0 per 100 WBCs LAB HEMATOLOGY METHOD 07/03/2025 4:32 AM EDT [facility] Differential Type Automated LAB HEMATOLOGY METHOD 07/03/2025 4:32 AM EDT [facility]ALTH[facility] Neutrophils % 62 % LAB HEMATOLOGY [...] LAB HEMATOLOGY METHOD 07/03/2025 4:32 AM EDT [facility] Immature Granulocytes % 0 % LAB HEMATOLOGY METHOD 07/03/2025 4:32 AM EDT [facility] Neutrophils Absolute 1.58(L) 1.60 - 6.10 10*3/uL LAB HEMATOLOGY METHOD 07/03/2025 4:32 AM EDT [facility]ALTH[facility] Lymphocytes Absolute 0.58(L) 1.20 - 3.90 10*3/uL LAB HEMATOLOGY METHOD 07/03/2025 4:32 AM EDT [facility] Monocytes Absolute 0.36 0.30 - 0.90 10*3/uL LAB HEMATOLOGY METHOD 07/03/2025 4:32 AM EDT [facility] Eosinophils Absolute 0.06 0.00 - 0.50 10*3/uL LAB HEMATOLOGY METHOD 07/03/2025 4:32 AM EDT [facility] Basophils Absolute 0.01 0.00 - 0.10 [...] ORDERABLES Final Result [facility] [address] [place] [address] * (ABNORMAL) POCT glucose meter (07/02/2025 8:19 PM EDT) [facility] POCT Glucose 150(H) 74 - 99 mg/dL [...] for testing. Comment 07/02/2025 8:21 PM EDT [facility] [employer] Set Up Operator ID Zulma Link 07/02/2025 8:21 PM EDT [facility] Device ID [id number] 07/02/2025 8:21 PM EDT [facility] Specimen Type POC Capillary 07/02/2025 8:21 PM EDT [facility] Blood Capillary blood specimen / Unknown 07/02/2025 8:19 PM EDT 07/02/2025 8:21 PM EDT us Fabiana Cunningham MD LAB POINT OF CARE TE ST DOCKED DEVICE UNSOLICITED RESULTS Final Result [facility] [address] [place] [address] * (ABNORMAL) POCT glucose meter (07/02/2025 4:53 PM EDT) [facility] POCT Glucose 125(H) 74 - 99 mg/dL [...] for testing. Comment 07/02/2025 4:55 PM EDT [facility] [employer] Set Up Operator ID Ashleigh Romero 4:55 PM EDT [facility] Device ID [id number] 07/02/2025 4:55 PM EDT [facility] Specimen Type POC Capillary 07/02/2025 4:55 PM EDT [facility] Blood Capillary blood specimen / Unknown 07/02/2025 4:53 PM EDT 07/02/2025 4:55 PM EDT us Fabiana Cunningham MD LAB POINT OF CARE TE ST DOCKED DEVICE UNSOLICITED RESULTS Final Result Performing Organization Address City/[facility]/ZIP Co de Phone Number [facility]ALTH[facility] [address] [place] [address] * Sodium, urine, random (07/02/2025 12:42 PM EDT) Sodium, Urine <20 mmol/L 07/02/2025 1:41 PM EDT [facility] Urine Urine specimen obtained by clean catch procedure / Unknown Non-blood Collection / Unknown 07/02/2025 12:42 PM EDT 07/02/2025 1:01 PM EDT us Fabiana Cunningham MD LAB URINE ORDERABLES Final Resu lt Performing Organization Address [facility] Co de Phone Number [facility] [address] [place] [address] * Osmolality, urine (07/02/2025 12:42 PM EDT) Osmolality, Urine 467 50 - 1,200 mOsm/kg 07/02/2025 4:32 PM EDT [facility] Urine Urine specimen obtained by clean catch procedure / Unknown Non-blood Collection / Unknown 07/02/2025 12:42 PM EDT 07/02/2025 1:01 PM EDT us Fabiana Cunningham MD LAB URINE ORDERABLES Final Resu lt Performing Organization Address [facility] Co de Phone Number [facility] [address] [place] [address] * Creatinine, urine, random (07/02/2025 12:42 PM EDT) Creatinine, Urine 146 mg/dL 07/02/2025 1:41 PM EDT [facility] Urine Urine specimen obtained by clean catch procedure / Unknown Non-blood Collection / Unknown 07/02/2025 12:42 PM EDT 07/02/2025 1:01 PM EDT us Fabiana Cunningham MD LAB URINE ORDERABLES Final Resu lt Performing Organization Address City/[facility] Co de Phone Number [facility] [address] [place] [address] * Urea nitrogen, urine (07/02/2025 12:42 PM EDT) Urea Nitrogen, Urine 821 mg/dL 07/02/2025 4:26 PM EDT [facility] Urine Urine specimen obtained by clean catch procedure / Unknown Non-blood Collection / Unknown 07/02/2025 12:42 PM EDT 07/02/2025 1:01 PM EDT Fabiana Cunningham MD LAB URINE ORDERABLES Final Resu lt Performing Organization Address City/[facility]/ZIP Co de Phone Number [facility] [address] [place] [address] * (ABNORMAL) POCT glucose meter (07/02/2025 12:04 PM EDT) Pathologist [facility] POCT Glucose 189(H) 74 - 99 mg/dL [...] Comment 07/02/2025 12:06 PM EDT [facility] [employer] Set Up Operator ID Jake Gallegos 07/02/2025 12:06 PM EDT [facility] Device ID [id number] 07/02/2025 12:06 PM EDT [facility] Specimen Type POC Capillary 07/02/2025 12:06 PM EDT [facility] Blood Capillary blood specimen / Unknown 07/02/2025 12:04 PM EDT 07/02/2025 12:06 PM EDT us Fabiana Cunningham MD LAB POINT OF CARE TE ST DOCKED DEVICE UNSOLICITED RESULTS Final Result Performing Organization Address City/[facility]/ZIP Co de Phone Number [facility]ARE [facility] [address] [place] [address] * (ABNORMAL) POCT glucose meter (07/02/2025 8:20 AM EDT) [facility] POCT Glucose 115(H) 74 - 99 mg/dL [...] for testing. Comment 07/02/2025 8:22 AM EDT [facility] [employer] Set Up Operator ID Ashleigh Romero 8:22 AM EDT [facility] Device ID [id number] 07/02/2025 8:22 AM EDT [facility] Specimen Type POC Capillary 07/02/2025 8:22 AM EDT [facility] Blood Capillary blood specimen / Unknown 07/02/2025 8:20 AM EDT 07/02/2025 8:22 AM EDT Fabiana Cunningham MD LAB POINT OF CARE TE ST DOCKED DEVICE UNSOLICITED RESULTS Final Result [facility] [address] [place] [address] * (ABNORMAL) Comprehensive metabolic panel (07/02/2025 4:19 AM EDT) [facility] Glucose, Plasma 115(H) 74 - 99 mg/dL 07/02/2025 4:58 AM EDT [facility] BUN, Plasma 32(H) 8 - 23 mg/dL 07/02/2025 4:58 AM EDT [facility] Creatinine, Plasma 1.73(H) 0.60 - 1.10 mg/dL 07/02/2025 4:58 AM EDT [facility] BUN/Creatinine Ratio 18 07/02/2025 4:58 AM EDT [facility] Sodium, Plasma 134(L) 136 - 145 mmol/L 07/02/2025 4:58 AM EDT [facility] Potassium, Plasma 4.1 3.6 - 4.9 mmol/L 07/02/2025 4:58 AM EDT [facility] Chloride, Plasma 108(H) 97 - 107 mmol/L 07/02/2025 4:58 AM EDT [facility] CO2, Plasma 18(L) 22 - 29 mmol/L 07/02/2025 4:58 AM EDT [facility] Anion Gap 8 6 - 16 mmol/L 07/02/2025 4:58 AM EDT [facility] Total Calcium, Plasma 8.1(L) 8.9 - 10.2 mg/dL 07/02/2025 4:58 AM EDT [facility] Total Protein 5.8(L) 6.3 - 7.9 g/dL 07/02/2025 4:58 AM EDT [facility] Albumin, Plasma 2.8(L) 3.5 - 5.2 g/dL 07/02/2025 4:58 AM EDT [facility] AST, Plasma 40(H) 10 - 35 U/L 07/02/2025 4:58 AM EDT [facility] ALT, Plasma 21 10 - 35 U/L 07/02/2025 4:58 AM EDT [facility] Alkaline Phosphatase, Plasma 182(H) 46 - 142 U/L 07/02/2025 4:58 AM EDT [facility] Total Bilirubin, Plasma 2.8(H) 0.2 - 1.1 mg/dL 07/02/2025 4:58 AM EDT [facility] eGFRcr 33.1 mL/min/1.7 3m*2 07/02/2025 4:58 AM EDT [facility] Comment:Reported eGFRcr in m L/min/1.73m2 is based the CKD-EPI 2020 equation that does not use a race coefficient. Blood Venous blood specimen / Unknown Venipuncture / Unknown 07/02/2025 4:19 AM EDT 07/02/2025 4:33 AM EDT us Chilo Morales MD LAB BLOOD ORDERABLES Final Result [facility] [address] [place] [address] * Phosphorus, Plasma (07/02/2025 4:19 AM EDT) Phosphorus, Plasma 3.1 2.5 - 4.5 mg/dL 07/02/2025 4:58 AM EDT [facility] Blood Venous blood specimen / Unknown Venipuncture / Unknown 07/02/2025 4:19 AM EDT 07/02/2025 4:33 AM EDT Chilo Morales MD LAB BLOOD ORDERABLES Final Result Performing Organization Address [facility]/ZIP Co de Phone Number [facility] [address] [place] [address] * (ABNORMAL) Magnesium, Plasma (07/02/2025 4:19 AM EDT) Pathologist [facility] Magnesium, Plasma 1.8(L) 1.9 - 2.4 mg/dL 07/02/2025 4:58 AM EDT [facility] Blood Venous blood specimen / Unknown Venipuncture / Unknown 07/02/2025 4:19 AM EDT 07/02/2025 4:33 AM EDT Chilo Morales MD LAB BLOOD ORDERABLES Final Result Performing Organization Address City/[facility] Co de Phone Number [facility] [address] [place] [address] * (ABNORMAL) CBC and Differential (07/02/2025 4:19 AM EDT) [facility] WBC Count 3.07(L) 3.70 - 10.30 10*3/uL LAB HEMATOLOGY METHOD 07/02/2025 4:35 AM EDT [facility] RBC Count 2.67(L) 3.90 - 5.20 10*6/uL LAB HEMATOLOGY METHOD 07/02/2025 4:35 AM EDT [facility] HGB 8.3(L) 11.2 - 15.7 g/dL LAB HEMATOLOGY METHOD 07/02/2025 4:35 AM EDT [facility] HCT 24.5(L) 34.0 - 45.0 % LAB HEMATOLOGY METHOD 07/02/2025 4:35 AM EDT [facility] Platelet Count 51(L) 155 - 369 10*3/uL LAB HEMATOLOGY METHOD 07/02/2025 4:35 AM EDT [facility] MCV 92 79 - 98 fL LAB HEMATOLOGY METHOD 07/02/2025 4:35 AM EDT [facility] MCH 31.1 26.0 - 32.0 pg LAB HEMATOLOGY METHOD 07/02/2025 4:35 AM EDT [facility] MCHC 33.9 30.7 - 35.5 g/dL LAB HEMATOLOGY METHOD 07/02/2025 4:35 AM EDT [facility] RDW 15.3(H) 11.5 - 14.5 % LAB HEMATOLOGY METHOD 07/02/2025 4:35 AM EDT [facility] MPV 12.6(H) 8.8 - 12.5 fL LAB HEMATOLOGY METHOD 07/02/2025 4:35 AM EDT [facility] nRBC 0.0 <=0.0 per 100 WBCs LAB HEMATOLOGY METHOD 07/02/2025 4:35 AM EDT [facility] Differential Type Automated LAB HEMATOLOGY METHOD 07/02/2025 4:35 AM EDT [facility] Neutrophils % 55 % LAB HEMATOLOGY METHOD 07/02/2025 4:35 AM EDT [facility] Lymphocytes % 25 % LAB HEMATOLOGY METHOD 07/02/2025 4:35 AM EDT [facility] Monocytes % 17 % LAB HEMATOLOGY METHOD 07/02/2025 4:35 AM EDT [facility] Eosinophils % 3 % LAB HEMATOLOGY METHOD 07/02/2025 4:35 AM EDT [facility] Basophils % 0 % LAB HEMATOLOGY METHOD 07/02/2025 4:35 AM EDT [facility] Immature Granulocytes % 0 % LAB HEMATOLOGY METHOD 07/02/2025 4:35 AM EDT [facility] Neutrophils Absolute 1.66 1.60 - 6.10 10*3/uL LAB HEMATOLOGY METHOD 07/02/2025 4:35 AM EDT [facility] Lymphocytes Absolute 0.78(L) 1.20 - 3.90 10*3/uL LAB HEMATOLOGY METHOD 07/02/2025 4:35 AM EDT [facility] Monocytes Absolute 0.53 0.30 - 0.90 10*3/uL LAB HEMATOLOGY METHOD 07/02/2025 4:35 AM EDT [facility] Eosinophils Absolute 0.08 0.00 - 0.50 10*3/uL LAB HEMATOLOGY METHOD 07/02/2025 4:35 AM EDT [facility] Basophils Absolute 0.01 0.00 - 0.10 10*3/uL LAB HEMATOLOGY METHOD 07/02/2025 4:35 AM EDT [facility] Immature Granulocytes [...] BLOOD ORDERABLES Final Result Performing Organization Address [facility] Co de Phone Number HEALTHCARE LAB [address] [place] [address] * (ABNORMAL) POCT glucose meter (07/01/2025 8:01 PM EDT) [facility] POCT Glucose 122(H) 74 - 99 mg/dL 07/01/2025 8:02 PM EDT [facility] Comment:Accuracy of a [...] Comment 07/01/2025 8:02 PM EDT [facility] [employer] Set Up Operator ID Sandra Collins 07/01/2025 8:02 PM EDT [facility] Device ID [id number] 07/01/2025 8:02 PM EDT [facility] Specimen Type POC Capillary 07/01/2025 8:02 PM EDT [facility] Blood Capillary blood specimen / Unknown 07/01/2025 8:01 PM EDT 07/01/2025 8:02 PM EDT us Fabiana Cunningham MD LAB POINT OF CARE TE ST DOCKED DEVICE UNSOLICITED RESULTS Final Result Performing Organization Address City/[facility]/ZIP Co de Phone Number HEALTHCARE LAB [address] [place] [address] * (ABNORMAL) POCT glucose meter (07/01/2025 4:37 PM EDT) [facility] POCT Glucose 136(H) 74 - 99 mg/dL [...] Comment 07/01/2025 4:38 PM EDT [facility] [employer] Set Up Operator ID Ashleigh Romero 4:38 PM EDT [facility] LAB Device ID [id number] 07/01/2025 4:38 PM EDT [facility] Specimen Type POC Capillary 07/01/2025 4:38 PM EDT [facility] Blood Capillary blood specimen / Unknown 07/01/2025 4:37 PM EDT 07/01/2025 4:38 PM EDT Fabiana Cunningham MD LAB POINT OF CARE TE ST DOCKED DEVICE UNSOLICITED RESULTS Final Result [facility] [address] [place] [address] * (ABNORMAL) POCT glucose meter (07/01/2025 12:10 PM EDT) [facility] POCT Glucose 257(H) 74 - 99 mg/dL 07/01/2025 12:12 PM EDT [facility] Comment:Accuracy of a [...] Comment 07/01/2025 12:12 PM EDT [facility] [employer] Set Up Operator ID Ashleigh Romero 12:12 PM EDT [facility] LAB Device ID [id number] 07/01/2025 12:12 PM EDT [facility] Specimen Type POC Capillary 07/01/2025 12:12 PM EDT [facility] Blood Capillary blood specimen / Unknown 07/01/2025 12:10 PM EDT 07/01/2025 12:12 PM EDT Fabiana Cunningham MD LAB POINT OF CARE TE ST DOCKED DEVICE UNSOLICITED RESULTS Final Result Performing Organization Address [facility] de Phone Number [facility] [address] [place] [address] * (ABNORMAL) Protime-INR (07/01/2025 9:08 AM EDT) Pathologist [facility] Prothrombin Time 19.9(H) 12.0 - 14.3 sec 07/01/2025 9:45 AM EDT [facility] INR 1.7(H) 0.9 - 1.1 07/01/2025 9:45 AM EDT [facility] Blood Venous blood specimen / Unknown [...] INR 2.5 to 3.5 Prevention of recurrent RI INR 2.5 to 3.5 us Yeni Lebron APRN, ANGELLA LAB BLOOD ORDERABLES Final Result Performing Organization Address [facility] de Phone Number [facility] [address] [place] [address] * (ABNORMAL) POCT glucose meter (07/01/2025 8:04 AM EDT) Pathologist [facility] POCT Glucose 126(H) 74 - 99 mg/dL 07/01/2025 8:06 AM EDT [facility] Comment:Accuracy of a glucos e result [...] Comment 07/01/2025 8:06 AM EDT [facility]ALTH[facility]ARE [facility] [employer] Set Up Operator ID Ashleigh Romero 8:06 AM EDT HEALTHCARE LAB Device ID [id number] 07/01/2025 8:06 AM EDT [facility] Specimen Type POC Capillary 07/01/2025 8:06 AM EDT [facility] Blood Capillary blood specimen / Unknown 07/01/2025 8:04 AM EDT 07/01/2025 8:06 AM EDT us Fabiana Cunningham MD LAB POINT OF CARE TE ST DOCKED DEVICE UNSOLICITED RESULTS Final Result [facility] [address] [place] [address] * (ABNORMAL) Comprehensive metabolic panel (07/01/2025 12:00 AM EDT) Glucose, Plasma 154(H) 74 - 99 mg/dL 07/01/2025 12:25 AM EDT [facility] BUN, Plasma 27(H) 8 - 23 mg/dL 07/01/2025 12:25 AM EDT [facility] Creatinine, Plasma 1.42(H) 0.60 - 1.10 mg/dL 07/01/2025 12:25 AM EDT [facility] BUN/Creatinine Ratio 19 07/01/2025 12:25 AM EDT [facility] Sodium, Plasma 135(L) 136 - 145 mmol/L 07/01/2025 12:25 AM EDT [facility] Potassium, Plasma 4.3 3.6 - 4.9 mmol/L 07/01/2025 12:25 AM EDT [facility] Chloride, Plasma 108(H) 97 - 107 mmol/L 07/01/2025 12:25 AM EDT [facility] CO2, Plasma 18(L) 22 - 29 mmol/L 07/01/2025 12:25 AM EDT [facility] Anion Gap 9 6 - 16 mmol/L 07/01/2025 12:25 AM EDT [facility] Total Calcium, Plasma 8.7(L) 8.9 - 10.2 mg/dL 07/01/2025 12:25 AM EDT [facility] Total Protein 6.0(L) 6.3 - 7.9 g/dL 07/01/2025 12:25 AM EDT [facility] Albumin, Plasma 2.9(L) 3.5 - 5.2 g/dL 07/01/2025 12:25 AM EDT [facility] AST, Plasma 46(H) 10 - 35 U/L 07/01/2025 12:25 AM EDT [facility] ALT, Plasma 21 10 - 35 U/L 07/01/2025 12:25 AM EDT [facility] Alkaline Phosphatase, Plasma 184(H) 46 - 142 U/L 07/01/2025 12:25 AM EDT [facility] Total Bilirubin, Plasma 2.9(H) 0.2 - 1.1 mg/dL 07/01/2025 12:25 AM EDT [facility] eGFRcr 41.9 mL/min/1.7 3m*2 07/01/2025 12:25 AM EDT [facility] Comment:Reported eGFRcr in m L/min/1.73m2 is based the CKD-EPI 2020 equation that does not use a race coefficient. Blood Venous blood specimen / Unknown Venipuncture / Unknown 07/01/2025 12:00 AM EDT 07/01/2025 12:03 AM EDT us Chilo Morales MD LAB BLOOD ORDERABLES Final Result [facility] [address] [place] [address] * Phosphorus, Plasma (07/01/2025 12:00 AM EDT) Phosphorus, Plasma 2.7 2.5 - 4.5 mg/dL 07/01/2025 12:25 AM EDT [facility] Blood Venous blood specimen / Unknown Venipuncture / Unknown 07/01/2025 12:00 AM EDT 07/01/2025 12:03 AM EDT us Chilo Morales MD LAB BLOOD ORDERABLES Final Result [facility] [address] [place] [address] * Magnesium, Plasma (07/01/2025 12:00 AM EDT) Magnesium, Plasma 1.9 1.9 - 2.4 mg/dL 07/01/2025 12:25 AM EDT [facility] Blood Venous blood specimen / Unknown Venipuncture / Unknown 07/01/2025 12:00 AM EDT 07/01/2025 12:03 AM EDT us Chilo Morales MD LAB BLOOD ORDERABLES Final Result [facility] [address] [place] [address] * (ABNORMAL) CBC and Differential (07/01/2025 12:00 AM EDT) Pathologist [facility] WBC Count 3.15(L) 3.70 - 10.30 10*3/uL LAB HEMATOLOGY METHOD 07/01/2025 12:06 AM EDT [facility] RBC Count 2.81(L) 3.90 - 5.20 10*6/uL LAB HEMATOLOGY METHOD 07/01/2025 12:06 AM EDT [facility] HGB 8.6(L) 11.2 - 15.7 g/dL LAB HEMATOLOGY METHOD 07/01/2025 12:06 AM EDT [facility] HCT 25.5(L) 34.0 - 45.0 % LAB HEMATOLOGY METHOD 07/01/2025 12:06 AM EDT [facility] Platelet Count 47(L) 155 - 369 10*3/uL LAB HEMATOLOGY METHOD 07/01/2025 12:06 AM EDT [facility] MCV 91 79 - 98 fL LAB HEMATOLOGY METHOD 07/01/2025 12:06 AM EDT [facility] MCH 30.6 26.0 - 32.0 pg LAB HEMATOLOGY METHOD 07/01/2025 12:06 AM EDT [facility] MCHC 33.7 30.7 - 35.5 g/dL LAB HEMATOLOGY METHOD 07/01/2025 12:06 AM EDT [facility] RDW 15.0(H) 11.5 - 14.5 % LAB HEMATOLOGY METHOD 07/01/2025 12:06 AM EDT [facility] MPV 11.6 8.8 - 12.5 fL LAB HEMATOLOGY METHOD 07/01/2025 12:06 AM EDT [facility] nRBC 0.0 <=0.0 per 100 WBCs LAB HEMATOLOGY METHOD 07/01/2025 12:06 AM EDT [facility] Differential Type Automated LAB HEMATOLOGY METHOD 07/01/2025 12:06 AM EDT [facility] Neutrophils % 57 % LAB HEMATOLOGY METHOD 07/01/2025 12:06 AM EDT [facility] Lymphocytes % 24 % LAB HEMATOLOGY METHOD 07/01/2025 12:06 AM EDT [facility] Monocytes % 16 % LAB HEMATOLOGY METHOD 07/01/2025 12:06 AM EDT [facility] Eosinophils % 3 % LAB HEMATOLOGY METHOD 07/01/2025 12:06 AM EDT [facility] Basophils % 0 % LAB HEMATOLOGY METHOD 07/01/2025 12:06 AM EDT [facility] Immature Granulocytes % 0 % LAB HEMATOLOGY METHOD 07/01/2025 12:06 AM EDT [facility] Neutrophils Absolute 1.79 1.60 - 6.10 10*3/uL LAB HEMATOLOGY METHOD 07/01/2025 12:06 AM EDT [facility] Lymphocytes Absolute 0.75(L) 1.20 - 3.90 10*3/uL LAB HEMATOLOGY METHOD 07/01/2025 12:06 AM EDT [facility] Monocytes Absolute 0.50 0.30 - 0.90 10*3/uL LAB HEMATOLOGY METHOD 07/01/2025 12:06 AM EDT [facility] Eosinophils Absolute 0.09 0.00 - 0.50 10*3/uL LAB HEMATOLOGY METHOD 07/01/2025 12:06 AM EDT [facility] Basophils Absolute 0.01 0.00 - 0.10 10*3/uL LAB HEMATOLOGY METHOD 07/01/2025 12:06 AM EDT [facility] Immature Granulocytes Absolute 0.01 0.00 - 0.06 10*3/uL LAB HEMATOLOGY METHOD 07/01/2025 12:06 AM EDT [facility] Blood Venous blood specimen / Unknown Venipuncture / Unknown 07/01/2025 12:00 AM EDT 07/01/2025 12:03 AM EDT [facility] - 07/01/2025 12:06 AM EDT Therapeutic decision making should be based on absolute values, rather than percentages. us Chilo Morales MD LAB BLOOD ORDERABLES Final Result Performing Organization Address [facility] de Phone Number [facility] [address] [place] [address] * (ABNORMAL) POCT glucose meter (06/30/2025 8:52 PM EDT) Pathologist [facility] POCT Glucose 185(H) 74 - 99 mg/dL [...] for testing. Comment 06/30/2025 8:54 PM EDT [facility] [employer] Set Up Operator ID Love Gore 8:54 PM EDT [facility] Device ID [id number] 06/30/2025 8:54 PM EDT [facility] Specimen Type POC Capillary 06/30/2025 8:54 PM EDT [facility] Blood Capillary blood specimen / Unknown 06/30/2025 8:52 PM EDT 06/30/2025 8:54 PM EDT Fabiana Cunningham MD LAB POINT OF CARE TE ST DOCKED DEVICE UNSOLICITED RESULTS Final Result Performing Organization Address City/[facility] Co de Phone Number HEALTHCARE LAB [address] [place] [address] * (ABNORMAL) POCT glucose meter (06/30/2025 4:40 PM EDT) [facility] POCT Glucose 169(H) 74 - 99 mg/dL [...] for testing. Comment 06/30/2025 4:41 PM EDT [facility] [employer] Set Up Operator ID Nadia Salazar 4:41 PM EDT [facility] Device ID [id number] 06/30/2025 4:41 PM EDT [facility] Specimen Type POC Capillary 06/30/2025 4:41 PM EDT [facility] Blood Capillary blood specimen / Unknown 06/30/2025 4:40 PM EDT 06/30/2025 4:41 PM EDT us Fabinaa Cunningham MD LAB POINT OF CARE TE ST DOCKED DEVICE UNSOLICITED RESULTS Final Result Performing Organization Address City/[facility] Co de Phone Number [facility]CARE LAB [address] [place] [address] * (ABNORMAL) POCT glucose meter (06/30/2025 11:48 [...] 06/30/2025 11:50 AM EDT [facility] [employer] Set Up Operator ID Nadia Salazar 11:50 AM EDT [facility] Device ID [id number] 06/30/2025 11:50 AM EDT [facility] Specimen Type POC Capillary 06/30/2025 11:50 AM EDT [facility] Blood Capillary blood specimen / Unknown 06/30/2025 11:48 AM EDT 06/30/2025 11:50 AM EDT us Fabiana Cunningham MD LAB POINT OF CARE TE ST DOCKED DEVICE UNSOLICITED RESULTS Final Result Performing Organization Address City/[facility]/ZIP Co de Phone Number [facility]ARE [facility] [address] [place] [address] * (ABNORMAL) Ammonia, Plasma (06/30/2025 8:53 AM EDT) [facility] Ammonia 61(H) 11 - 51 umol/L 06/30/2025 9:26 AM EDT [facility] Blood Venous blood specimen / Unknown Venipuncture / Unknown 06/30/2025 8:53 AM EDT 06/30/2025 9:01 AM EDT Fabiana Cunningham MD LAB BLOOD ORDERABLES Final Resu lt Performing Organization Address City/[facility] Co de Phone Number [facility]ARE [facility] [address] [place] [address] * (ABNORMAL) POCT glucose meter (06/30/2025 7:40 AM EDT) [facility] POCT Glucose 128(H) 74 - 99 mg/dL [...] 06/30/2025 7:41 AM EDT [facility] [employer] Set Up Operator ID Nadia Salazar 7:41 AM EDT HEALTH[facility]ARE LAB Device ID [id number] 06/30/2025 7:41 AM EDT [facility] Specimen Type POC Capillary 06/30/2025 7:41 AM EDT [facility] Blood Capillary blood specimen / Unknown 06/30/2025 7:40 AM EDT 06/30/2025 7:41 AM EDT us Fabiana Cunningham MD LAB POINT OF CARE TE ST DOCKED DEVICE UNSOLICITED RESULTS Final Result Performing Organization Address City/[facility] Co de Phone Number [facility] [address] [place] [address] * Peripheral blood smear, pathologist interpretation (06/30/2025 12:37 AM EDT) [facility] Clinical Diagnosis, Peripheral Smear Pancytopenia LAB HEMATOLOGY METHOD 07/01/2025 12:12 PM EDT [facility] Interpretation , Peripheral Smear Pancytopenia, not morphologically distinct 07/01/2025 12:12 PM EDT [facility] Pathologist Signature, Peripheral Smear 07/01/2025 12:12 PM EDT [facility] Comment:Reviewed by: Stacy King MD LAB CP ASR DISCLAIMER No 07/01/2025 12:12 PM EDT [facility] Blood Venous blood specimen / Unknown Venipuncture / Unknown 06/30/2025 12:37 AM EDT 06/30/2025 12:40 AM EDT us Fabiana Cunningham MD LAB PATHOLOGY ORDERABLES Final Result [facility] [address] [place] [address] * (ABNORMAL) Comprehensive metabolic panel (06/30/2025 12:37 AM EDT) Glucose, Plasma 162(H) 74 - 99 mg/dL 06/30/2025 1:00 AM EDT [facility] BUN, Plasma 28(H) 8 - 23 mg/dL 06/30/2025 1:00 AM EDT [facility] Creatinine, Plasma 1.60(H) 0.60 - 1.10 mg/dL 06/30/2025 1:00 AM EDT [facility] BUN/Creatinine Ratio 18 06/30/2025 1:00 AM EDT [facility] Sodium, Plasma 135(L) 136 - 145 mmol/L 06/30/2025 1:00 AM EDT [facility] Potassium, Plasma 3.5(L) 3.6 - 4.9 mmol/L 06/30/2025 1:00 AM EDT [facility] Chloride, Plasma 107 97 - 107 mmol/L 06/30/2025 1:00 AM EDT [facility] CO2, Plasma 19(L) 22 - 29 mmol/L 06/30/2025 1:00 AM EDT [facility] Anion Gap 9 6 - 16 mmol/L 06/30/2025 1:00 AM EDT [facility] Total Calcium, Plasma 8.5(L) 8.9 - 10.2 mg/dL 06/30/2025 1:00 AM EDT [facility] Total Protein 5.7(L) 6.3 - 7.9 g/dL 06/30/2025 1:00 AM EDT [facility] Albumin, Plasma 2.9(L) 3.5 - 5.2 g/dL 06/30/2025 1:00 AM EDT [facility] AST, Plasma 45(H) 10 - 35 U/L 06/30/2025 1:00 AM EDT [facility] ALT, Plasma 21 10 - 35 U/L 06/30/2025 1:00 AM EDT [facility] Alkaline Phosphatase, Plasma 185(H) 46 - 142 U/L 06/30/2025 1:00 AM EDT [facility] Total Bilirubin, Plasma 2.9(H) 0.2 - 1.1 mg/dL 06/30/2025 1:00 AM EDT [facility] eGFRcr 36.3 mL/min/1.7 3m*2 06/30/2025 1:00 AM EDT [facility] Comment:Reported eGFRcr in m L/min/1.73m2 is based the CKD-EPI 2020 equation that does not use a race coefficient. Blood Venous blood specimen / Unknown Venipuncture / Unknown 06/30/2025 12:37 AM EDT 06/30/2025 12:40 AM EDT us Chilo Morales MD LAB BLOOD ORDERABLES Final Result [facility] [address] [place] [address] * Phosphorus, Plasma (06/30/2025 12:37 AM EDT) Phosphorus, Plasma 3.0 2.5 - 4.5 mg/dL 06/30/2025 1:00 AM EDT [facility] Blood Venous blood specimen / Unknown Venipuncture / Unknown 06/30/2025 12:37 AM EDT 06/30/2025 12:40 AM EDT us Chilo Morales MD LAB BLOOD ORDERABLES Final Result [facility] [address] [place] [address] * (ABNORMAL) Magnesium, Plasma (06/30/2025 12:37 AM EDT) Magnesium, Plasma 1.5(L) 1.9 - 2.4 mg/dL 06/30/2025 1:00 AM EDT [facility] Blood Venous blood specimen / Unknown Venipuncture / Unknown 06/30/2025 12:37 AM EDT 06/30/2025 12:40 AM EDT us Chilo Morales MD LAB BLOOD ORDERABLES Final Result [facility] [address] [place] [address] * (ABNORMAL) Peripheral Blood Smear (06/30/2025 12:37 AM EDT) WBC Count 2.74(L) 3.70 - 10.30 10*3/uL LAB HEMATOLOGY METHOD 06/30/2025 1:28 AM EDT [facility] RBC Count 2.74(L) 3.90 - 5.20 10*6/uL LAB HEMATOLOGY METHOD 06/30/2025 1:28 AM EDT [facility] HGB 8.4(L) 11.2 - 15.7 g/dL LAB HEMATOLOGY METHOD 06/30/2025 1:28 AM EDT [facility] HCT 24.8(L) 34.0 - 45.0 % LAB HEMATOLOGY METHOD 06/30/2025 1:28 AM EDT [facility] Platelet Count 40(L) 155 - 369 10*3/uL LAB HEMATOLOGY METHOD 06/30/2025 1:28 AM EDT [facility] MCV 91 79 - 98 fL LAB HEMATOLOGY METHOD 06/30/2025 1:28 AM EDT [facility] MCH 30.7 26.0 - 32.0 pg LAB HEMATOLOGY METHOD 06/30/2025 1:28 AM EDT [facility] MCHC 33.9 30.7 - 35.5 g/dL LAB HEMATOLOGY METHOD 06/30/2025 1:28 AM EDT [facility] RDW 15.3(H) 11.5 - 14.5 % LAB HEMATOLOGY METHOD 06/30/2025 1:28 AM EDT [facility] MPV 10.3 8.8 - 12.5 fL LAB HEMATOLOGY METHOD 06/30/2025 1:28 AM EDT [facility] nRBC 0.0 <=0.0 per 100 WBCs LAB HEMATOLOGY METHOD 06/30/2025 1:28 AM EDT [facility] Differential Type Automated LAB HEMATOLOGY METHOD 06/30/2025 1:28 AM EDT [facility] Neutrophils % 54 % LAB HEMATOLOGY METHOD 06/30/2025 1:28 AM EDT [facility] Lymphocytes % 27 % LAB HEMATOLOGY METHOD 06/30/2025 1:28 AM EDT [facility] Monocytes % 16 % LAB HEMATOLOGY METHOD 06/30/2025 1:28 AM EDT [facility] Eosinophils % 3 % LAB HEMATOLOGY METHOD 06/30/2025 1:28 AM EDT [facility] Basophils % 0 % LAB HEMATOLOGY METHOD 06/30/2025 1:28 AM EDT [facility] Immature Granulocytes % 0 % LAB HEMATOLOGY METHOD 06/30/2025 1:28 AM EDT [facility] Neutrophils Absolute 1.45(L) 1.60 - 6.10 10*3/uL LAB HEMATOLOGY METHOD 06/30/2025 1:28 AM EDT [facility] Lymphocytes Absolute 0.73(L) 1.20 - 3.90 10*3/uL LAB HEMATOLOGY METHOD 06/30/2025 1:28 AM EDT [facility] Monocytes Absolute 0.45 0.30 - 0.90 10*3/uL LAB HEMATOLOGY METHOD 06/30/2025 1:28 AM EDT [facility] Eosinophils Absolute 0.09 0.00 - 0.50 10*3/uL LAB HEMATOLOGY METHOD 06/30/2025 1:28 AM EDT [facility] Basophils Absolute 0.01 0.00 - 0.10 10*3/uL LAB HEMATOLOGY METHOD 06/30/2025 1:28 AM EDT [facility] Immature Granulocytes Absolute 0.01 0.00 - 0.06 10*3/uL LAB HEMATOLOGY METHOD 06/30/2025 1:28 AM EDT [facility] Blood Venous blood specimen / Unknown Venipuncture / Unknown 06/30/2025 12:37 AM EDT 06/30/2025 12:40 AM EDT [facility] - 06/30/2025 1:28 AM EDT Therapeutic decision making should be based on absolute values, rather than percentages. Fabiana Cunningham MD LAB PATHOLOGY ORDERABLES Final Result Performing Organization Address [facility] de Phone Number [facility] [address] [place] [address] * (ABNORMAL) POCT glucose meter (06/29/2025 8:07 [...] for testing. Comment 06/29/2025 8:09 PM EDT [facility] [employer] Set Up Operator ID Kacy Corrales 06/29/2025 8:09 PM EDT [facility] Device ID [id number] 06/29/2025 8:09 PM EDT [facility] Specimen Type POC Capillary 06/29/2025 8:09 PM EDT [facility] Blood Capillary blood specimen / Unknown 06/29/2025 8:07 PM EDT 06/29/2025 8:09 PM EDT Fabiana Cunningham MD LAB POINT OF CARE TE ST DOCKED DEVICE UNSOLICITED RESULTS Final Result Performing Organization Address [facility] Co de Phone Number [facility] [address] [place] [address] * (ABNORMAL) POCT glucose meter (06/29/2025 4:40 [...] for testing. Comment 06/29/2025 4:41 PM EDT [facility] [employer] Set Up Operator ID Ashleigh Romero 4:41 PM EDT [facility] Device ID [id number] 06/29/2025 4:41 PM EDT [facility] Specimen Type POC Capillary 06/29/2025 4:41 PM EDT [facility] Blood Capillary blood specimen / Unknown 06/29/2025 4:40 PM EDT 06/29/2025 4:41 PM EDT Fabiana Cunningham MD LAB POINT OF CARE TE ST DOCKED DEVICE UNSOLICITED RESULTS Final Result Performing Organization Address City/[facility] Co de Phone Number [facility] [address] [place] [address] * (ABNORMAL) POCT glucose meter (06/29/2025 12:12 PM EDT) [facility] POCT Glucose 227(H) 74 - 99 mg/dL [...] Comment 06/29/2025 12:13 PM EDT [facility] [employer] Set Up Operator ID Ashleigh Romero 12:13 PM EDT [facility] LAB Device ID [id number] 06/29/2025 12:13 PM EDT [facility] Specimen Type POC Capillary 06/29/2025 12:13 PM EDT [facility] Blood Capillary blood specimen / Unknown 06/29/2025 12:12 PM EDT 06/29/2025 12:13 PM EDT us Fabiana Cunningham MD LAB POINT OF CARE TE ST DOCKED DEVICE UNSOLICITED RESULTS Final Result Performing Organization Address City/[facility]/ZIP Co de Phone Number [facility] [address] [place] [address] * (ABNORMAL) POCT glucose meter (06/29/2025 8:05 AM EDT) Pathologist [facility] POCT Glucose 144(H) 74 - 99 mg/dL [...] Comment 06/29/2025 8:07 AM EDT [facility] [employer] Set Up Operator ID Ashleigh Romero 8:07 AM EDT [facility] Device ID [id number] 06/29/2025 8:07 AM EDT [facility] Specimen Type POC Capillary 06/29/2025 8:07 AM EDT [facility] Blood Capillary blood specimen / Unknown 06/29/2025 8:05 AM EDT 06/29/2025 8:07 AM EDT us Fabiana Cunningham MD LAB POINT OF CARE TE ST DOCKED DEVICE UNSOLICITED RESULTS Final Result [facility] [address] [place] [address] * (ABNORMAL) Comprehensive metabolic panel (06/29/2025 12:18 AM EDT) Pathologist [facility] Glucose, Plasma 159(H) 74 - 99 mg/dL 06/29/2025 12:51 AM EDT [facility] BUN, Plasma 26(H) 8 - 23 mg/dL 06/29/2025 12:51 AM EDT [facility] Creatinine, Plasma 1.49(H) 0.60 - 1.10 mg/dL 06/29/2025 12:51 AM EDT [facility] BUN/Creatinine Ratio 17 06/29/2025 12:51 AM EDT [facility] Sodium, Plasma 137 136 - 145 mmol/L 06/29/2025 12:51 AM EDT [facility] Potassium, Plasma 3.4(L) 3.6 - 4.9 mmol/L 06/29/2025 12:51 AM EDT [facility] Chloride, Plasma 108(H) 97 - 107 mmol/L 06/29/2025 12:51 AM EDT [facility] CO2, Plasma 19(L) 22 - 29 mmol/L 06/29/2025 12:51 AM EDT [facility] Anion Gap 10 6 - 16 mmol/L 06/29/2025 12:51 AM EDT [facility] Total Calcium, Plasma 8.7(L) 8.9 - 10.2 mg/dL 06/29/2025 12:51 AM EDT [facility] Total Protein 5.9(L) 6.3 - 7.9 g/dL 06/29/2025 12:51 AM EDT [facility] Albumin, Plasma 3.0(L) 3.5 - 5.2 g/dL 06/29/2025 12:51 AM EDT [facility] AST, Plasma 50(H) 10 - 35 U/L 06/29/2025 12:51 AM EDT [facility] ALT, Plasma 21 10 - 35 U/L 06/29/2025 12:51 AM EDT [facility] Alkaline Phosphatase, Plasma 201(H) 46 - 142 U/L 06/29/2025 12:51 AM EDT [facility] Total Bilirubin, Plasma 2.4(H) 0.2 - 1.1 mg/dL 06/29/2025 12:51 AM EDT [facility] eGFRcr 39.6 mL/min/1.7 3m*2 06/29/2025 12:51 AM EDT [facility] Comment:Reported eGFRcr in m L/min/1.73m2 is based the CKD-EPI 2020 equation that does not use a race coefficient. Blood Venous blood specimen / Unknown Venipuncture / Unknown 06/29/2025 12:18 AM EDT 06/29/2025 12:24 AM EDT us Chilo Morales MD LAB BLOOD ORDERABLES Final Result [facility] [address] [place] [address] * Phosphorus, Plasma (06/29/2025 12:18 AM EDT) Phosphorus, Plasma 3.2 2.5 - 4.5 mg/dL 06/29/2025 12:51 AM EDT [facility] Blood Venous blood specimen / Unknown Venipuncture / Unknown 06/29/2025 12:18 AM EDT 06/29/2025 12:24 AM EDT Chilo Morales MD LAB BLOOD ORDERABLES Final Result Performing Organization Address City/[facility] Co de Phone Number [facility] [address] [place] [address] * (ABNORMAL) Magnesium, Plasma (06/29/2025 12:18 AM EDT) Magnesium, Plasma 1.8(L) 1.9 - 2.4 mg/dL 06/29/2025 12:51 AM EDT [facility] Blood Venous blood specimen / Unknown Venipuncture / Unknown 06/29/2025 12:18 AM EDT 06/29/2025 12:24 AM EDT Chilo Morales MD LAB BLOOD ORDERABLES Final Result Performing Organization Address [facility] de Phone Number [facility] [address] [place] [address] * (ABNORMAL) CBC and Differential (06/29/2025 12:18 AM EDT) WBC Count 2.22(L) 3.70 - 10.30 10*3/uL LAB HEMATOLOGY METHOD 06/29/2025 12:49 AM EDT [facility] RBC Count 2.86(L) 3.90 - 5.20 10*6/uL LAB HEMATOLOGY METHOD 06/29/2025 12:49 AM EDT [facility] HGB 8.8(L) 11.2 - 15.7 g/dL LAB HEMATOLOGY METHOD 06/29/2025 12:49 AM EDT [facility] HCT 25.5(L) 34.0 - 45.0 % LAB HEMATOLOGY METHOD 06/29/2025 12:49 AM EDT [facility] Platelet Count 39(L) 155 - 369 10*3/uL LAB HEMATOLOGY METHOD 06/29/2025 12:49 AM EDT [facility] MCV 89 79 - 98 fL LAB HEMATOLOGY METHOD 06/29/2025 12:49 AM EDT [facility] MCH 30.8 26.0 - 32.0 pg LAB HEMATOLOGY METHOD 06/29/2025 12:49 AM EDT [facility] MCHC 34.5 30.7 - 35.5 g/dL LAB HEMATOLOGY METHOD 06/29/2025 12:49 AM EDT [facility] RDW 15.4(H) 11.5 - 14.5 % LAB HEMATOLOGY METHOD 06/29/2025 12:49 AM EDT [facility] MPV 10.6 8.8 - 12.5 fL LAB HEMATOLOGY METHOD 06/29/2025 12:49 AM EDT [facility] nRBC 0.0 <=0.0 per 100 WBCs LAB HEMATOLOGY METHOD 06/29/2025 12:49 AM EDT [facility] Differential Type Automated LAB HEMATOLOGY METHOD 06/29/2025 12:49 AM EDT [facility] Neutrophils % 46 % LAB HEMATOLOGY METHOD 06/29/2025 12:49 AM EDT [facility] Lymphocytes % 28 % LAB HEMATOLOGY METHOD 06/29/2025 12:49 AM EDT [facility] Monocytes % 22 % LAB HEMATOLOGY METHOD 06/29/2025 12:49 AM EDT [facility] Eosinophils % 3 % LAB HEMATOLOGY METHOD 06/29/2025 12:49 AM EDT [facility] Basophils % 1 % LAB HEMATOLOGY METHOD 06/29/2025 12:49 AM EDT [facility] Immature Granulocytes % 0 % LAB HEMATOLOGY METHOD 06/29/2025 12:49 AM EDT [facility] Neutrophils Absolute 1.04(L) 1.60 - 6.10 10*3/uL LAB HEMATOLOGY METHOD 06/29/2025 12:49 AM EDT [facility] Lymphocytes Absolute 0.62(L) 1.20 - 3.90 10*3/uL LAB HEMATOLOGY METHOD 06/29/2025 12:49 AM EDT [facility] Monocytes Absolute 0.49 0.30 - 0.90 10*3/uL LAB HEMATOLOGY METHOD 06/29/2025 12:49 AM EDT [facility] Eosinophils Absolute 0.06 0.00 - 0.50 10*3/uL LAB HEMATOLOGY METHOD 06/29/2025 12:49 AM EDT [facility] Basophils Absolute 0.01 0.00 - 0.10 10*3/uL LAB HEMATOLOGY METHOD 06/29/2025 12:49 AM EDT [facility] Immature Granulocytes Absolute 0.00 0.00 - 0.06 10*3/uL LAB HEMATOLOGY METHOD 06/29/2025 12:49 AM EDT [facility] Blood Venous blood specimen / Unknown Venipuncture / Unknown 06/29/2025 12:18 AM EDT 06/29/2025 12:23 AM EDT Narrative [facility] - 06/29/2025 12:49 AM EDT Therapeutic decision making should be based on absolute values, rather than percentages. us Chilo Morales MD LAB BLOOD ORDERABLES Final Result Performing Organization Address [facility] Co de Phone Number [facility] [address] [place] [address] * (ABNORMAL) Ammonia, Plasma (06/29/2025 12:18 AM EDT) Ammonia 125(H) 11 - 51 umol/L 06/29/2025 12:39 AM EDT [facility] Blood Venous blood specimen / Unknown Venipuncture / Unknown 06/29/2025 12:18 AM EDT 06/29/2025 12:21 AM EDT us Fabiana Cunningham MD LAB BLOOD ORDERABLES Final Resu lt Performing Organization Address [facility] Co tn Phone Number [facility] [address] [place] [address] * (ABNORMAL) POCT glucose meter (06/28/2025 10:35 [...] Comment 06/28/2025 10:41 PM EDT [facility] Centerless Grinder Set Up Operator ID [email or web address] 06/28/2025 10:41 PM EDT [facility] Device ID [id number] 06/28/2025 10:41 PM EDT [facility] Specimen Type POC Capillary 06/28/2025 10:41 PM EDT [facility] Blood Capillary blood specimen / Unknown 06/28/2025 10:35 PM EDT 06/28/2025 10:41 PM EDT us Fabiana Cunningham MD LAB POINT OF CARE TE ST DOCKED DEVICE UNSOLICITED RESULTS Final Result Performing Organization Address City/[facility] Co de Phone Number [facility] [address] [place] [address] * (ABNORMAL) POCT glucose meter (06/28/2025 4:41 PM EDT) [facility] POCT Glucose 153(H) 74 - 99 mg/dL [...] Comment 06/28/2025 4:43 PM EDT [facility] [employer] Grinder Set Up Operator ID Ashleigh Romero 4:43 PM EDT [facility] Device ID [id number] 06/28/2025 4:43 PM EDT [facility] Specimen Type POC Capillary 06/28/2025 4:43 PM EDT [facility] Blood Capillary blood specimen / Unknown 06/28/2025 4:41 PM EDT 06/28/2025 4:43 PM EDT us Chilo Morales MD LAB POINT OF CARE T EST DOCKED DEVICE UNSOLICITED RESULTS Final Result Performing Organization Address City/[facility]/ZIP Co de Phone Number [facility] [address] [place] [address] * (ABNORMAL) POCT glucose meter (06/28/2025 12:08 PM EDT) [facility] POCT Glucose 202(H) 74 - 99 mg/dL [...] Comment 06/28/2025 12:10 PM EDT [facility] [employer] Gr[employer] Set Up Operator ID Ashleigh Romero 12:10 PM EDT [facility] Device ID [id number] 06/28/2025 12:10 PM EDT [facility] Specimen Type POC Capillary 06/28/2025 12:10 PM EDT [facility] Blood Capillary blood specimen / Unknown 06/28/2025 12:08 PM EDT 06/28/2025 12:10 PM EDT Chilo Morales MD LAB POINT OF CARE T EST DOCKED DEVICE UNSOLICITED RESULTS Final Result Performing Organization Address City/State/[facility] Co de Phone Number [facility] [address] [place] [address] * (ABNORMAL) POCT glucose meter (06/28/2025 8:19 AM EDT) [facility] POCT Glucose 151(H) 74 - 99 mg/dL [...] Comment 06/28/2025 8:21 AM EDT [facility] [employer] Gr[employer] Set Up Operator ID Ashleigh Romero 8:21 AM EDT [facility] Device ID [id number] 06/28/2025 8:21 AM EDT [facility] Specimen Type POC Capillary 06/28/2025 8:21 AM EDT [facility] Blood Capillary blood specimen / Unknown 06/28/2025 8:19 AM EDT 06/28/2025 8:21 AM EDT us Chilo Morales MD LAB POINT OF CARE T EST DOCKED DEVICE UNSOLICITED RESULTS Final Result Performing Organization Address [facility] de Phone Number [facility] [address] [place] [address] * (ABNORMAL) Prealbumin (06/28/2025 3:50 AM EDT) Prealbumin, Plasma 5.0(L) 20.0 - 41.0 mg/dL 06/28/2025 1:[address] [facility] Blood Venous blood specimen / Unknown Venipuncture / Unknown 06/28/2025 3:50 AM EDT 06/28/2025 4:27 AM EDT Chilo Morales MD LAB BLOOD ORDERABLES Final Result Performing Organization Address [facility] Phone Number [facility] [address] [place] [address] * (ABNORMAL) Comprehensive metabolic panel (06/28/2025 3:50 AM EDT) Glucose, Plasma 149(H) 74 - 99 mg/dL 06/28/2025 4:57 AM EDT [facility] BUN, Plasma 28(H) 8 - 23 mg/dL 06/28/2025 4:57 AM EDT [facility] Creatinine, Plasma 1.66(H) 0.60 - 1.10 mg/dL 06/28/2025 4:57 AM EDT [facility] BUN/Creatinine Ratio 17 06/28/2025 4:57 AM EDT [facility] Sodium, Plasma 136 136 - 145 mmol/L 06/28/2025 4:57 AM EDT [facility] Potassium, Plasma 3.5(L) 3.6 - 4.9 mmol/L 06/28/2025 4:57 AM EDT [facility] Chloride, Plasma 107 97 - 107 mmol/L 06/28/2025 4:57 AM EDT [facility] CO2, Plasma 18(L) 22 - 29 mmol/L 06/28/2025 4:57 AM EDT [facility] Anion Gap 11 6 - 16 mmol/L 06/28/2025 4:57 AM EDT [facility] Total Calcium, Plasma 8.3(L) 8.9 - 10.2 mg/dL 06/28/2025 4:57 AM EDT [facility] Total Protein 5.8(L) 6.3 - 7.9 g/dL 06/28/2025 4:57 AM EDT [facility] Albumin, Plasma 3.1(L) 3.5 - 5.2 g/dL 06/28/2025 4:57 AM EDT [facility] AST, Plasma 52(H) 10 - 35 U/L 06/28/2025 4:57 AM EDT [facility] ALT, Plasma 23 10 - 35 U/L 06/28/2025 4:57 AM EDT [facility] Alkaline Phosphatase, Plasma 194(H) 46 - 142 U/L 06/28/2025 4:57 AM EDT [facility] Total Bilirubin, Plasma 2.3(H) 0.2 - 1.1 mg/dL 06/28/2025 4:57 AM EDT [facility] eGFRcr 34.7 mL/min/1.7 3m*2 06/28/2025 4:57 AM EDT [facility] Comment:Reported eGFRcr in m L/min/1.73m2 is based the CKD-EPI 2020 equation that does not use a race coefficient. Blood Venous blood specimen / Unknown Venipuncture / Unknown 06/28/2025 3:50 AM EDT 06/28/2025 4:27 AM EDT us Chilo Morales MD LAB BLOOD ORDERABLES Final Result [facility] [address] [place] [address] * Phosphorus, Plasma (06/28/2025 3:50 AM EDT) Phosphorus, Plasma 3.5 2.5 - 4.5 mg/dL 06/28/2025 4:57 AM EDT [facility] Blood Venous blood specimen / Unknown Venipuncture / Unknown 06/28/2025 3:50 AM EDT 06/28/2025 4:27 AM EDT Chilo Morales MD LAB BLOOD ORDERABLES Final Result Performing Organization Address City/[facility] Co de Phone Number [facility] [address] [place] [address] * (ABNORMAL) Magnesium, Plasma (06/28/2025 3:50 AM EDT) Magnesium, Plasma 1.8(L) 1.9 - 2.4 mg/dL 06/28/2025 4:57 AM EDT [facility] Blood Venous blood specimen / Unknown Venipuncture / Unknown 06/28/2025 3:50 AM EDT 06/28/2025 4:27 AM EDT Chilo Morales MD LAB BLOOD ORDERABLES Final Result Performing Organization Address [facility] de Phone Number [facility] [address] [place] [address] * (ABNORMAL) CBC and Differential (06/28/2025 3:50 AM EDT) WBC Count 1.69(L) 3.70 - 10.30 10*3/uL LAB HEMATOLOGY METHOD 06/28/2025 5:04 AM EDT [facility] RBC Count 2.72(L) 3.90 - 5.20 10*6/uL LAB HEMATOLOGY METHOD 06/28/2025 5:04 AM EDT [facility] HGB 8.3(L) 11.2 - 15.7 g/dL LAB HEMATOLOGY METHOD 06/28/2025 5:04 AM EDT [facility] HCT 24.6(L) 34.0 - 45.0 % LAB HEMATOLOGY METHOD 06/28/2025 5:04 AM EDT [facility] Platelet Count 40(L) 155 - 369 10*3/uL LAB HEMATOLOGY METHOD 06/28/2025 5:04 AM EDT [facility] MCV 90 79 - 98 fL LAB HEMATOLOGY METHOD 06/28/2025 5:04 AM EDT [facility] MCH 30.5 26.0 - 32.0 pg LAB HEMATOLOGY METHOD 06/28/2025 5:04 AM EDT [facility] MCHC 33.7 30.7 - 35.5 g/dL LAB HEMATOLOGY METHOD 06/28/2025 5:04 AM EDT [facility] RDW 15.5(H) 11.5 - 14.5 % LAB HEMATOLOGY METHOD 06/28/2025 5:04 AM EDT [facility] MPV 11.3 8.8 - 12.5 fL LAB HEMATOLOGY METHOD 06/28/2025 5:04 AM EDT [facility] nRBC 0.0 <=0.0 per 100 WBCs LAB HEMATOLOGY METHOD 06/28/2025 5:04 AM EDT [facility] Differential Type Automated LAB HEMATOLOGY METHOD 06/28/2025 5:04 AM EDT [facility] Neutrophils % 40 % LAB HEMATOLOGY METHOD 06/28/2025 5:04 AM EDT [facility] Lymphocytes % 31 % LAB HEMATOLOGY METHOD 06/28/2025 5:04 AM EDT [facility] Monocytes % 23 % LAB HEMATOLOGY METHOD 06/28/2025 5:04 AM EDT [facility] Eosinophils % 4 % LAB HEMATOLOGY METHOD 06/28/2025 5:04 AM EDT [facility] Basophils % 1 % LAB HEMATOLOGY METHOD 06/28/2025 5:04 AM EDT [facility] Immature Granulocytes % 1 % LAB HEMATOLOGY METHOD 06/28/2025 5:04 AM EDT [facility] Neutrophils Absolute 0.69(LL) 1.60 - 6.10 10*3/uL LAB HEMATOLOGY METHOD 06/28/2025 5:04 AM EDT [facility] Lymphocytes Absolute 0.53(L) 1.20 - 3.90 10*3/uL LAB HEMATOLOGY METHOD 06/28/2025 5:04 AM EDT [facility] Monocytes Absolute 0.39 0.30 - 0.90 10*3/uL LAB HEMATOLOGY METHOD 06/28/2025 5:04 AM EDT [facility] Eosinophils Absolute 0.06 0.00 - 0.50 10*3/uL LAB HEMATOLOGY METHOD 06/28/2025 5:04 AM EDT [facility] Basophils Absolute 0.01 0.00 - 0.10 10*3/uL LAB HEMATOLOGY METHOD 06/28/2025 5:04 AM EDT [facility] Immature Granulocytes Absolute 0.01 0.00 - 0.06 10*3/uL LAB HEMATOLOGY METHOD 06/28/2025 5:04 AM EDT [facility] Blood Venous blood specimen / Unknown Venipuncture / Unknown 06/28/2025 3:50 AM EDT 06/28/2025 4:26 AM EDT Narrative [facility] - 06/28/2025 5:04 AM EDT Therapeutic decision making should be based on absolute values, rather than percentages. us Chilo Morales MD LAB BLOOD ORDERABLES Final Result Performing Organization Address City/[facility]/ZIP Co de Phone Number [facility] [address] [place] [address] * (ABNORMAL) POCT glucose meter (06/27/2025 8:04 [...] Comment 06/27/2025 8:05 PM EDT [facility] Centerless Grinder Set Up Operator ID Tracie Wood 06/27/2025 8:05 PM EDT [facility] Device ID [id number] 06/27/2025 8:05 PM EDT [facility] Specimen Type POC Capillary 06/27/2025 8:05 PM EDT [facility] Blood Capillary blood specimen / Unknown 06/27/2025 8:04 PM EDT 06/27/2025 8:05 PM EDT us Chilo Morales MD LAB POINT OF CARE T EST DOCKED DEVICE UNSOLICITED RESULTS Final Result [facility] [address] [place] [address] * (ABNORMAL) POCT glucose meter (06/27/2025 4:41 [...] Comment 06/27/2025 4:42 PM EDT [facility] Centerless Grinder Set Up Operator ID Ashleigh Romero 4:42 PM EDT [facility] Device ID [id number] 06/27/2025 4:42 PM EDT [facility] Specimen Type POC Capillary 06/27/2025 4:42 PM EDT [facility] Blood Capillary blood specimen / Unknown 06/27/2025 4:41 PM EDT 06/27/2025 4:42 PM EDT Chilo Morales MD LAB POINT OF CARE T EST DOCKED DEVICE UNSOLICITED RESULTS Final Result Performing Organization Address City/[facility] Co de Phone Number [facility] [address] [place] [address] * (ABNORMAL) APTT (06/27/2025 2:37 PM EDT) Pathologist [facility] aPTT 42(H) 25 - 35 sec 06/27/2025 3:10 PM EDT [facility] Blood Venous blood specimen / Unknown Venipuncture / Unknown 06/27/2025 2:37 PM EDT 06/27/2025 2:44 PM EDT us Chilo Morales MD LAB BLOOD ORDERABLES Final Result Performing Organization Address City/[facility]/ZIP Co de Phone Number [facility] [address] [place] [address] * (ABNORMAL) CBC and differential (06/27/2025 2:37 PM EDT) WBC Count 1.51(L) 3.70 - 10.30 10*3/uL LAB HEMATOLOGY METHOD 06/27/2025 3:06 PM EDT [facility] RBC Count 2.99(L) 3.90 - 5.20 10*6/uL LAB HEMATOLOGY METHOD 06/27/2025 3:06 PM EDT [facility] HGB 9.4(L) 11.2 - 15.7 g/dL LAB HEMATOLOGY METHOD 06/27/2025 3:06 PM EDT [facility] HCT 27.7(L) 34.0 - 45.0 % LAB HEMATOLOGY METHOD 06/27/2025 3:06 PM EDT [facility] Platelet Count 35(L) 155 - 369 10*3/uL LAB HEMATOLOGY METHOD 06/27/2025 3:06 PM EDT [facility] MCV 93 79 - 98 fL LAB HEMATOLOGY METHOD 06/27/2025 3:06 PM EDT [facility] MCH 31.4 26.0 - 32.0 pg LAB HEMATOLOGY METHOD 06/27/2025 3:06 PM EDT [facility] MCHC 33.9 30.7 - 35.5 g/dL LAB HEMATOLOGY METHOD 06/27/2025 3:06 PM EDT [facility] RDW 15.8(H) 11.5 - 14.5 % LAB HEMATOLOGY METHOD 06/27/2025 3:06 PM EDT [facility] MPV 10.8 8.8 - 12.5 fL LAB HEMATOLOGY METHOD 06/27/2025 3:06 PM EDT [facility] nRBC 0.0 <=0.0 per 100 WBCs LAB HEMATOLOGY METHOD 06/27/2025 3:06 PM EDT [facility] Differential Type Automated LAB HEMATOLOGY METHOD 06/27/2025 3:06 PM EDT [facility] Neutrophils % 37 % LAB HEMATOLOGY METHOD 06/27/2025 3:06 PM EDT [facility] Lymphocytes % 40 % LAB HEMATOLOGY METHOD 06/27/2025 3:06 PM EDT [facility] Monocytes % 18 % LAB HEMATOLOGY METHOD 06/27/2025 3:06 PM EDT [facility] Eosinophils % 4 % LAB HEMATOLOGY METHOD 06/27/2025 3:06 PM EDT [facility] Basophils % 1 % LAB HEMATOLOGY METHOD 06/27/2025 3:06 PM EDT [facility] Immature Granulocytes % 0 % LAB HEMATOLOGY METHOD 06/27/2025 3:06 PM EDT [facility] Neutrophils Absolute 0.56(LL) 1.60 - 6.10 10*3/uL LAB HEMATOLOGY METHOD 06/27/2025 3:06 PM EDT [facility] Lymphocytes Absolute 0.61(L) 1.20 - 3.90 [...] BLOOD ORDERABLES Final Result Performing Organization Address [facility] Co de Phone Number [facility] [address] [place] [address] * (ABNORMAL) Magnesium (06/27/2025 2:37 PM EDT) Pathologist [facility] Magnesium, Plasma 1.5(L) 1.9 - 2.4 mg/dL 06/27/2025 3:10 PM EDT [facility] Blood Venous blood specimen / Unknown Venipuncture / Unknown 06/27/2025 2:37 PM EDT 06/27/2025 2:44 PM EDT Chilo Morales MD LAB BLOOD ORDERABLES Final Result Performing Organization Address City/[facility]/ZIP Co de Phone Number [facility] [address] [place] [address] * (ABNORMAL) Basic metabolic panel (06/27/2025 2:37 PM EDT) [facility] Glucose, Plasma 90 74 - 99 mg/dL 06/27/2025 3:10 PM EDT [facility] BUN, Plasma 29(H) 8 - 23 mg/dL 06/27/2025 3:10 PM EDT [facility] Creatinine, Plasma 1.83(H) 0.60 - 1.10 mg/dL 06/27/2025 3:10 PM EDT [facility] BUN/Creatinine Ratio 16 06/27/2025 3:10 PM EDT [facility] Sodium, Plasma 139 136 - 145 mmol/L 06/27/2025 3:10 PM EDT [facility] Potassium, Plasma 3.7 3.6 - 4.9 mmol/L 06/27/2025 3:10 PM EDT [facility] Chloride, Plasma 108(H) 97 - 107 mmol/L 06/27/2025 3:10 PM EDT [facility] CO2, Plasma 19(L) 22 - 29 mmol/L 06/27/2025 3:10 PM EDT [facility] Anion Gap 12 6 - 16 mmol/L 06/27/2025 3:10 PM EDT [facility] Total Calcium, Plasma 8.6(L) 8.9 - 10.2 mg/dL 06/27/2025 3:10 PM EDT [facility] eGFRcr 30.9 mL/min/1.7 3m*2 06/27/2025 3:10 PM EDT [facility] Comment:Reported eGFRcr in m L/min/1.73m2 is based the CKD-EPI 2020 equation that does not use a race coefficient. Blood Venous blood specimen / Unknown Venipuncture / Unknown 06/27/2025 2:37 PM EDT 06/27/2025 2:44 PM EDT us Chilo Morales MD LAB BLOOD ORDERABLES Final Result [facility] [address] [place] [address] * XR Chest 1 View (06/27/2025 10:49 [...] 06/27/2025 11:46 AM us Marianna N Cheeks [facility] IMG XR PROCEDURES Final Resu lt * (ABNORMAL) POCT glucose meter (06/27/2025 10:27 AM EDT) POCT Glucose 105(H) 74 - 99 mg/dL 06/27/2025 10:28 AM EDT [facility] Comment:Accuracy of a glucos e result [...] Comment 06/27/2025 10:28 AM EDT [facility] [employer]less Grinder Set Up Operator ID Alvarez Mcclure 10:28 AM EDT [facility] Device ID [id number] 06/27/2025 10:28 AM EDT [facility] Specimen Type POC Capillary 06/27/2025 10:28 AM EDT [facility] Blood Capillary blood specimen / Unknown 06/27/2025 10:27 AM EDT 06/27/2025 10:28 AM EDT us Chilo Morales MD LAB POINT OF CARE T EST DOCKED DEVICE UNSOLICITED RESULTS Final Result Performing Organization Address City/State/[facility] Co de Phone Number HEALTHCARE LAB [address] [place] [address] * US Guided Thoracentesis (06/27/2025 10:03 AM [...] CXR with moderate right pleural effusion. TECHNIQUE: Wink Cutter Operator: Marianna Gordon APRN Secondary [employer]less Grinder Set Up Operator: None. Nurse: Mack Technologist: Dayne Phillips Dose: [...] CXR with moderate right pleural effusion. TECHNIQUE: Wink Cutter Operator: Marianna Gordon APRN Secondary [employer]less Grinder Set Up Operator: None. Nurse: Mack Technologist: Dayne Phillips Dose: [...] on 06/27/2025 2:58 PM us Shaniqua Mccurdy CHILD & ADOLESCENT PSYCHIATRIST IMG US PROCEDURES Final Resu lt * [...] CXR with moderate right pleural effusion. TECHNIQUE: Wink Cutter Operator: Marianna Gordon APRN Secondary [employer]less Grinder Set Up Operator: None. Nurse: Mack Technologist: Dayne Phillips Dose: [...] CXR with moderate right pleural effusion. TECHNIQUE: Wink Cutter Operator: Marianna Gordon APRN Secondary [employer]less Grinder Set Up Operator: None. Nurse: Mack Technologist: Dayne Phillips Dose: [...] on 06/27/2025 2:59 PM us Shaniqua Mccurdy CHILD & ADOLESCENT PSYCHIATRIST IMG US PROCEDURES Final Resu lt * Body fluid, cytospin, pathologist interpretation (06/27/2025 9:16 AM EDT) Specimen Type Body Fluid LAB HEMATOLOGY METHOD 06/28/2025 5:28 PM EDT [facility] Specimen Source, Body Fluid Peritoneal Fluid LAB HEMATOLOGY METHOD 06/28/2025 5:28 PM EDT [facility] Clinical Diagnosis, Body Fluid Ascites LAB HEMATOLOGY METHOD 06/28/2025 5:28 PM EDT [facility] Interpretation , Body Fluid No evidence of malignancy Chronic inflammatory cells Lymphocytosis Moderate blood A resident was involved in the service. I attest I examined the relevant preparations for the specimens and confirmed the diagnosis or interpretation. 06/28/2025 5:28 PM EDT [facility] Pathologist Signature, Body Fluid 06/28/2025 5:28 PM EDT [facility] Comment:Reviewed by: Kadie dobbs MD LAB CP ASR DISCLAIMER Yes 06/28/2025 5:28 PM EDT [facility] Body Fluid Peritoneal fluid / Unknown Non-blood Collection / Unknown 06/27/2025 9:16 AM EDT 06/27/2025 11:21 AM EDT us Chilo Morales MD LAB BODY FLUIDS AND STOOLS ORDERABLES Final Result [facility] [address] [place] [address] * LDH - Ascites (06/27/2025 9:16 AM EDT) LDH, Fluid 37 U/L 06/27/2025 2:46 PM EDT [facility] Peritoneal Fluid Peritoneal cavity structure / Unknown Non-blood Collection / Unknown 06/27/2025 9:16 AM EDT 06/27/2025 11:21 AM EDT Narrative [facility] - 06/27/2025 2:46 [...] STOOLS ORDERABLES Final Result Performing Organization Address [facility] Co de Phone Number [facility] [address] [place] [address] * Albumin - Ascites (06/27/2025 9:16 AM EDT) Albumin, Peritoneal Fluid 0.5 g/dL 06/27/2025 2:46 PM EDT [facility] Peritoneal Fluid Peritoneal cavity structure / Unknown Non-blood Collection / Unknown 06/27/2025 9:16 AM EDT 06/27/2025 11:21 AM EDT Narrative [facility] - 06/27/2025 2:46 PM EDT REPORTING RESULTS Reference Values: No established reference interval. Results should be interpreted in comparison to the concentration in blood and in conjunction with the clinical context. This test was developed and its performance characteristics determined by [facility]. The U.S. Food and Drug Administration has not approved or cleared this test; however, FDA clearance or approval is not currently required for clinical use. The results are not intended to be used as the sole means for clinical diagnosis or patient management decisions. Chilo Morales MD LAB BODY FLUIDS AND STOOLS ORDERABLES Final Result Performing Organization Address [facility] Co de Phone Number [facility] [address] [place] [address] * Protein - Ascites (06/27/2025 9:16 AM EDT) Total Protein, Fluid 0.7 g/dL 06/27/2025 2:46 PM EDT [facility] Peritoneal Fluid Peritoneal cavity structure / Unknown Non-blood Collection / Unknown 06/27/2025 9:16 AM EDT 06/27/2025 11:21 AM EDT Narrative [facility] - 06/27/2025 2:46 PM EDT This test was developed and its performance characteristics determined by [facility]. The U.S. Food and Drug Administration has not approved or cleared this test. However, FDA clearance or approval is not currently required for clinical use. The results are not intended to be used as the sole means for clinical diagnosis or patient management decisions. Chilo Morales MD LAB BODY FLUIDS AND STOOLS ORDERABLES Final Result [facility] [address] [place] [address] * Glucose - Ascites (06/27/2025 9:16 AM EDT) Glucose, Fluid 130 mg/dL 06/27/2025 2:46 PM EDT [facility] Peritoneal Fluid Peritoneal cavity structure / Unknown Non-blood Collection / Unknown 06/27/2025 9:16 AM EDT 06/27/2025 11:21 AM EDT Narrative [facility] - 06/27/2025 2:46 [...] plasma; 3) Glucose < 50 mg/dL. us Chilo Morales MD LAB BODY FLUIDS AND STOOLS ORDERABLES Final Result [facility] [address] [place] [address] * Body Fluid Culture and Gram Stain (06/27/2025 9:16 AM EDT) Culture No growth at day 4 2024 11:06 AM EDT [facility] Gram Stain Result No polymorphonuclear leukocytes seen 06/30/2025 11:06 AM EDT [facility] Gram Stain Result No organisms seen 06/30/2025 11:06 AM EDT [facility] Peritoneal Fluid Peritoneal cavity structure / Unknown Non-blood Collection / Unknown 06/27/2025 9:16 AM EDT 06/27/2025 11:50 AM EDT Chilo Morales MD LAB MICROBIOLOGY - GENERAL ORDERABLES Final Result Performing Organization Address [facility] Co de Phone Number [facility] [address] [place] [address] * (ABNORMAL) Body Fluid Cell Count With Diff - Ascites (06/27/2025 9:16 AM EDT) Color, Body fluid [place] LAB HEMATOLOGY METHOD 06/27/2025 3:28 PM EDT [facility] Appearance, Body fluid Cloudy(A) LAB HEMATOLOGY METHOD 06/27/2025 3:28 PM EDT [facility] Volume, Body fluid 27.0 cc LAB HEMATOLOGY METHOD 06/27/2025 3:28 PM EDT [facility] Fluid Container Specimen received in miscellaneous container LAB HEMATOLOGY METHOD 06/27/2025 3:28 PM EDT [facility] Red Blood Cell Count, Body fluid 11,000 uL LAB HEMATOLOGY METHOD 06/27/2025 3:28 PM EDT [facility] Total Nucleated Cell Count, Body fluid 202 uL LAB HEMATOLOGY METHOD 06/27/2025 3:28 PM EDT [facility] Neutrophils %, Body fluid 0 % LAB HEMATOLOGY METHOD 06/27/2025 3:28 PM EDT [facility] Lymphocytes %, Body fluid 93 % LAB HEMATOLOGY METHOD 06/27/2025 3:28 PM EDT [facility] Monocytes/Macr ophages %, Body fluid 7 % LAB HEMATOLOGY METHOD 06/27/2025 3:28 PM EDT [facility] Eosinophils %, Body fluid 0 % LAB HEMATOLOGY METHOD 06/27/2025 3:28 PM EDT [facility] Lining/Mesothe lial Cells %, Body fluid 0 % LAB HEMATOLOGY METHOD 06/27/2025 3:28 PM EDT [facility] Neutrophils Absolute (PMN), Body fluid 0 uL LAB HEMATOLOGY METHOD 06/27/2025 3:28 PM EDT [facility] Lymphocytes Absolute, Body fluid 188 uL LAB HEMATOLOGY METHOD 06/27/2025 3:28 PM EDT [facility] Monocytes/Macr ophages Absolute, Body fluid 14 uL LAB HEMATOLOGY METHOD 06/27/2025 3:28 PM EDT [facility] Eosinophils Absolute, Body fluid 0 uL LAB HEMATOLOGY METHOD 06/27/2025 3:28 PM EDT [facility] Basophils Absolute, Body fluid 0 uL LAB HEMATOLOGY METHOD 06/27/2025 3:28 PM EDT [facility] Lining/Mesothe lial Cells Absolute, Body fluid 0 uL LAB HEMATOLOGY METHOD 06/27/2025 3:28 PM EDT [facility] Basophils %, Body fluid 0 % LAB HEMATOLOGY METHOD 06/27/2025 3:28 PM EDT [facility] Body Fluid Peritoneal fluid / Unknown Non-blood Collection / Unknown 06/27/2025 9:16 AM EDT 06/27/2025 11:21 AM EDT Chilo Morales MD LAB BODY FLUIDS AND STOOLS ORDERABLES NO SPECIMEN TYPE/SOURCE Final Result [facility] [address] [place] [address] * (ABNORMAL) POCT glucose meter (06/27/2025 5:53 AM EDT) POCT Glucose 108(H) 74 - 99 mg/dL 06/27/2025 5:55 AM EDT [facility] Comment:Accuracy of a glucos e result [...] Comment 06/27/2025 5:55 AM EDT [facility] [employer] Set Up Operator ID Torrie Alston 5:55 AM EDT [facility] Device ID [id number] 06/27/2025 5:55 AM EDT [facility] Specimen Type POC Capillary 06/27/2025 5:55 AM EDT [facility] Blood Capillary blood specimen / Unknown 06/27/2025 5:53 AM EDT 06/27/2025 5:55 AM EDT us Chilo Morales MD LAB POINT OF CARE T EST DOCKED DEVICE UNSOLICITED RESULTS Final Result Performing Organization Address City/[facility]/ZIP Co de Phone Number [facility] [address] [place] [address] * (ABNORMAL) Cystatin C (06/27/2025 4:03 AM EDT) Cystatin C 2.97(H) 0.61 - 0.95 mg/L 06/27/2025 11:21 AM EDT [facility] Blood Venous blood specimen / Unknown Venipuncture / Unknown 06/27/2025 4:03 AM EDT 06/27/2025 4:40 AM EDT us Chilo Morales MD LAB BLOOD ORDERABLES Final Result [facility] [address] [place] [address] * Morphology (06/27/2025 4:03 AM EDT) RBC Morphology Slide Reviewed LAB HEMATOLOGY METHOD 06/27/2025 5:26 AM EDT [facility] Target Cells Present LAB HEMATOLOGY METHOD 06/27/2025 5:26 AM EDT [facility] Blood Venous blood specimen / Unknown Venipuncture / Unknown 06/27/2025 4:03 AM EDT 06/27/2025 4:40 AM EDT us Chilo Morales MD LAB BLOOD ORDERABLES Final Result [facility] [address] [place] [address] * (ABNORMAL) Comprehensive metabolic panel (06/27/2025 4:03 AM EDT) Glucose, Plasma 139(H) 74 - 99 mg/dL 06/27/2025 5:03 AM EDT [facility] BUN, Plasma 31(H) 8 - 23 mg/dL 06/27/2025 5:03 AM EDT [facility] Creatinine, Plasma 1.95(H) 0.60 - 1.10 mg/dL 06/27/2025 5:03 AM EDT [facility] BUN/Creatinine Ratio 16 06/27/2025 5:03 AM EDT [facility] Sodium, Plasma 134(L) 136 - 145 mmol/L 06/27/2025 5:03 AM EDT [facility] Potassium, Plasma 3.8 3.6 - 4.9 mmol/L 06/27/2025 5:03 AM EDT [facility] Chloride, Plasma 108(H) 97 - 107 mmol/L 06/27/2025 5:03 AM EDT [facility] CO2, Plasma 18(L) 22 - 29 mmol/L 06/27/2025 5:03 AM EDT [facility] Anion Gap 8 6 - 16 mmol/L 06/27/2025 5:03 AM EDT [facility] Total Calcium, Plasma 8.5(L) 8.9 - 10.2 mg/dL 06/27/2025 5:03 AM EDT [facility] Total Protein 5.8(L) 6.3 - 7.9 g/dL 06/27/2025 5:03 AM EDT [facility] Albumin, Plasma 2.8(L) 3.5 - 5.2 g/dL 06/27/2025 5:03 AM EDT [facility] AST, Plasma 60(H) 10 - 35 U/L 06/27/2025 5:03 AM EDT [facility] ALT, Plasma 26 10 - 35 U/L 06/27/2025 5:03 AM EDT [facility] Alkaline Phosphatase, Plasma 215(H) 46 - [...] BLOOD ORDERABLES Final Result Performing Organization Address City/[facility] Co de Phone Number [facility] [address] [place] [address] * Phosphorus, Plasma (06/27/2025 4:03 AM EDT) Phosphorus, Plasma 3.2 2.5 - 4.5 mg/dL 06/27/2025 5:03 AM EDT [facility] Blood Venous blood specimen / Unknown Venipuncture / Unknown 06/27/2025 4:03 AM EDT 06/27/2025 4:40 AM EDT us Chilo Morales MD LAB BLOOD ORDERABLES Final Result Performing Organization Address City/[facility]/ZIP Co de Phone Number [facility] [address] [place] [address] * (ABNORMAL) Magnesium, Plasma (06/27/2025 4:03 AM EDT) Magnesium, Plasma 1.5(L) 1.9 - 2.4 mg/dL 06/27/2025 5:03 AM EDT [facility] Blood Venous blood specimen / Unknown Venipuncture / Unknown 06/27/2025 4:03 AM EDT 06/27/2025 4:40 AM EDT us Chilo Morales MD LAB BLOOD ORDERABLES Final Result [facility] [address] [place] [address] * (ABNORMAL) CBC and Differential (06/27/2025 4:03 AM EDT) WBC Count 2.26(L) 3.70 - 10.30 10*3/uL LAB HEMATOLOGY METHOD 06/27/2025 5:26 AM EDT [facility] RBC Count 2.83(L) 3.90 - 5.20 10*6/uL LAB HEMATOLOGY METHOD 06/27/2025 5:26 AM EDT [facility] HGB 8.6(L) 11.2 - 15.7 g/dL LAB HEMATOLOGY METHOD 06/27/2025 5:26 AM EDT [facility] HCT 25.9(L) 34.0 - 45.0 % LAB HEMATOLOGY METHOD 06/27/2025 5:26 AM EDT [facility] Platelet Count 38(L) 155 - 369 10*3/uL LAB HEMATOLOGY METHOD 06/27/2025 5:26 AM EDT [facility] MCV 92 79 - 98 fL LAB HEMATOLOGY METHOD 06/27/2025 5:26 AM EDT [facility] MCH 30.4 26.0 - 32.0 pg LAB HEMATOLOGY METHOD 06/27/2025 5:26 AM EDT [facility] MCHC 33.2 30.7 - 35.5 g/dL LAB HEMATOLOGY METHOD 06/27/2025 5:26 AM EDT [facility] RDW 15.9(H) 11.5 - 14.5 % LAB HEMATOLOGY METHOD 06/27/2025 5:26 AM EDT [facility] MPV 11.8 8.8 - 12.5 fL LAB HEMATOLOGY METHOD 06/27/2025 5:26 AM EDT [facility] nRBC 0.0 <=0.0 per 100 WBCs LAB HEMATOLOGY METHOD 06/27/2025 5:26 AM EDT [facility] Differential Type Automated LAB HEMATOLOGY METHOD 06/27/2025 5:26 AM EDT [facility] Neutrophils % 43 % LAB HEMATOLOGY METHOD 06/27/2025 5:26 AM EDT [facility] Lymphocytes % 30 % LAB HEMATOLOGY METHOD 06/27/2025 5:26 AM EDT [facility] Monocytes % 24 % LAB HEMATOLOGY METHOD 06/27/2025 5:26 AM EDT [facility] Eosinophils % 3 % LAB HEMATOLOGY METHOD 06/27/2025 5:26 AM EDT [facility] Basophils % 0 % LAB HEMATOLOGY METHOD 06/27/2025 5:26 AM EDT [facility] Immature Granulocytes % 0 % LAB HEMATOLOGY METHOD 06/27/2025 5:26 AM EDT [facility] Neutrophils Absolute 0.98(LL) 1.60 - 6.10 10*3/uL LAB HEMATOLOGY METHOD 06/27/2025 5:26 AM EDT [facility] Lymphocytes Absolute 0.67(L) 1.20 - 3.90 10*3/uL LAB HEMATOLOGY METHOD 06/27/2025 5:26 AM EDT [facility] Monocytes Absolute 0.53 0.30 - 0.90 10*3/uL LAB HEMATOLOGY METHOD 06/27/2025 5:26 AM EDT [facility] Eosinophils Absolute 0.07 0.00 - 0.50 10*3/uL LAB HEMATOLOGY METHOD 06/27/2025 5:26 AM EDT [facility] Basophils Absolute 0.01 0.00 - 0.10 10*3/uL LAB HEMATOLOGY METHOD 06/27/2025 5:26 AM EDT [facility] Immature Granulocytes Absolute 0.00 0.00 - [...] LAB BLOOD ORDERABLES Final Result [facility] [address] [place] [address] * (ABNORMAL) POCT glucose meter (06/27/2025 12:02 AM EDT) [facility] POCT Glucose 132(H) 74 - 99 mg/dL [...] Comment 06/27/2025 12:04 AM EDT [facility] [employer] Set Up Operator ID Torrie Alston 12:04 AM EDT [facility] LAB Device ID [id number] 06/27/2025 12:04 AM EDT [facility] Specimen Type POC Capillary 06/27/2025 12:04 AM EDT [facility] Blood Capillary blood specimen / Unknown 06/27/2025 12:02 AM EDT 06/27/2025 12:04 AM EDT us Chilo Morales MD LAB POINT OF CARE T EST DOCKED DEVICE UNSOLICITED RESULTS Final Result Performing Organization Address City/State/[facility] Co de Phone Number [facility] [address] [place] [address] * (ABNORMAL) POCT glucose meter (06/26/2025 8:51 PM EDT) [facility] POCT Glucose 154(H) 74 - 99 mg/dL [...] Comment 06/26/2025 8:53 PM EDT [facility] [employer] Set Up Operator ID Torrie Alston 8:53 PM EDT [facility] Device ID [id number] 06/26/2025 8:53 PM EDT [facility] Specimen Type POC Capillary 06/26/2025 8:53 PM EDT [facility] Blood Capillary blood specimen / Unknown 06/26/2025 8:51 PM EDT 06/26/2025 8:53 PM EDT us Chilo Morales MD LAB POINT OF CARE T EST DOCKED DEVICE UNSOLICITED RESULTS Final Result Performing Organization Address City/[facility] Co de Phone Number [facility] [address] [place] [address] * (ABNORMAL) POCT glucose meter (06/26/2025 4:56 PM EDT) Pathologist [facility] POCT Glucose 253(H) 74 - 99 mg/dL [...] Comment 06/26/2025 4:58 PM EDT [facility] [employer] Set Up Operator ID Evelio Munoz 06/26/2025 4:58 PM EDT [facility] Device ID [id number] 06/26/2025 4:58 PM EDT [facility] Specimen Type POC Capillary 06/26/2025 4:58 PM EDT [facility] Blood Capillary blood specimen / Unknown 06/26/2025 4:56 PM EDT 06/26/2025 4:58 PM EDT Chilo Morales MD LAB POINT OF CARE T EST DOCKED DEVICE UNSOLICITED RESULTS Final Result Performing Organization Address [facility] Co de Phone Number [facility] [address] [place] [address] * (ABNORMAL) POCT glucose meter (06/26/2025 12:16 PM EDT) [facility] POCT Glucose 228(H) 74 - 99 mg/dL [...] Comment 06/26/2025 12:18 PM EDT [facility] [employer] Set Up Operator ID Evelio Munoz 06/26/2025 12:18 PM EDT [facility] LAB Device ID [id number] 06/26/2025 12:18 PM EDT [facility] Specimen Type POC Capillary 06/26/2025 12:18 PM EDT [facility] Blood Capillary blood specimen / Unknown 06/26/2025 12:16 PM EDT 06/26/2025 12:18 PM EDT us Chilo Morales MD LAB POINT OF CARE T EST DOCKED DEVICE UNSOLICITED RESULTS Final Result Performing Organization Address City/[facility]/ZIP Co de Phone Number [facility] [address] [place] [address] * (ABNORMAL) Cystatin C (06/26/2025 11:13 AM EDT) Cystatin C 3.12(H) 0.61 - 0.95 mg/L 06/26/2025 1:26 PM EDT [facility] Blood Venous blood specimen / Unknown Venipuncture / Unknown 06/26/2025 11:13 AM EDT 06/26/2025 11:30 AM EDT Chilo Morales MD LAB BLOOD ORDERABLES Final Result [facility] [address] [place] [address] * Protein, Random, Urine with Creatinine (06/26/2025 10:40 AM EDT) Protein, Urine 56 mg/dL 06/26/2025 11:35 AM EDT [facility] Creatinine, Urine 181 mg/dL 06/26/2025 11:35 AM EDT [facility] Protein/Creati nine Ratio 0.3 mg/mg Creat 06/26/2025 11:35 AM EDT [facility] Urine Urine specimen obtained by clean catch procedure / Unknown Non-blood Collection / Unknown 06/26/2025 10:40 AM EDT 06/26/2025 11:03 AM EDT us Chilo Morales MD LAB URINE ORDERABLES Final Result Performing Organization Address City/[facility]/ZIP Co de Phone Number [facility] [address] [place] [address] * Urea nitrogen, urine (06/26/2025 10:40 AM EDT) Urea Nitrogen, Urine 938 mg/dL 06/26/2025 2:02 PM EDT [facility] Urine Urine specimen obtained by clean catch procedure / Unknown Non-blood Collection / Unknown 06/26/2025 10:40 AM EDT 06/26/2025 11:03 AM EDT us Chilo Morales MD LAB URINE ORDERABLES Final Result Performing Organization Address [facility] de Phone Number [facility] [address] [place] [address] * (ABNORMAL) POCT glucose meter (06/26/2025 9:00 AM EDT) [facility] POCT Glucose 120(H) 74 - 99 mg/dL [...] for testing. Comment 06/26/2025 9:02 AM EDT [facility] [employer] Set Up Operator ID Jerry Munozt 06/26/2025 9:02 AM EDT [facility] LAB Device ID [id number] 06/26/2025 9:02 AM EDT [facility] Specimen Type POC Capillary 06/26/2025 9:02 AM EDT [facility] Blood Capillary blood specimen / Unknown 06/26/2025 9:00 AM EDT 06/26/2025 9:02 AM EDT us Chilo Morales MD LAB POINT OF CARE T EST DOCKED DEVICE UNSOLICITED RESULTS Final Result [facility] [address] [place] [address] * POCT glucose meter (06/26/2025 8:30 AM EDT) [facility] POCT Glucose 81 74 - 99 mg/dL [...] Comment 06/26/2025 8:31 AM EDT [facility] [employer] Set Up Operator ID Evelio Munoz 06/26/2025 8:31 AM EDT [facility] Device ID [id number] 06/26/2025 8:31 AM EDT [facility] Specimen Type POC Capillary 06/26/2025 8:31 AM EDT [facility] Blood Capillary blood specimen / Unknown 06/26/2025 8:30 AM EDT 06/26/2025 8:31 AM EDT us Chilo Morales MD LAB POINT OF CARE T EST DOCKED DEVICE UNSOLICITED RESULTS Final Result Performing Organization Address [facility] Co de Phone Number [facility] [address] [place] [address] * (ABNORMAL) Osmolality (06/26/2025 3:47 AM EDT) [facility] Osmolality, Serum 307(H) 280 - 301 mOsm/Kg 06/26/2025 9:36 AM EDT [facility] Blood Venous blood specimen / Unknown Venipuncture / Unknown 06/26/2025 3:47 AM EDT 06/26/2025 4:09 AM EDT us Chilo Morales MD LAB BLOOD ORDERABLES Final Result Performing Organization Address City/[facility]/ZIP Co de Phone Number [facility] [address] [place] [address] * (ABNORMAL) Comprehensive metabolic panel (06/26/2025 3:47 AM EDT) [facility] Glucose, Plasma 117(H) 74 - 99 mg/dL 06/26/2025 4:51 AM EDT [facility] BUN, Plasma 35(H) 8 - 23 mg/dL 06/26/2025 4:51 [facility] Creatinine, Plasma 2.32(H) 0.60 - 1.10 mg/dL 06/26/2025 4:51 AM EDT [facility] BUN/Creatinine Ratio 15 06/26/2025 4:51 AM EDT [facility] Sodium, Plasma 136 136 - 145 mmol/L 06/26/2025 4:51 AM [facility] Potassium, Plasma 4.2 3.6 - 4.9 mmol/L 06/26/2025 4:51 AM [facility] Chloride, Plasma 110(H) 97 - 107 mmol/L 06/26/2025 4:51 AM EDT [facility] CO2, Plasma 17(L) 22 - 29 mmol/L 06/26/2025 4:51 AM [facility] Anion Gap 9 6 - 16 mmol/L 06/26/2025 4:51 AM [facility] Total Calcium, Plasma 8.9 8.9 - 10.2 mg/dL 06/26/2025 4:51 AM [facility] Total Protein 5.9(L) 6.3 - 7.9 g/dL 06/26/2025 4:51 AM [facility] Albumin, Plasma 2.8(L) 3.5 - 5.2 g/dL 06/26/2025 4:51 AM EDT [facility] AST, Plasma 64(H) 10 - 35 U/L 06/26/2025 4:51 AM EDT [facility] ALT, Plasma 23 10 - 35 U/L 06/26/2025 4:51 AM EDT [facility] Alkaline Phosphatase, Plasma 189(H) 46 - 142 U/L 06/26/2025 4:51 AM EDT [facility] Total Bilirubin, Plasma 1.9(H) 0.2 - 1.1 mg/dL 06/26/2025 4:51 AM EDT [facility] eGFRcr 23.3 mL/min/1.7 3m*2 06/26/2025 4:51 AM EDT [facility]ALTH[facility] Comment:Reported eGFRcr in m L/min/1.73m2 is based the CKD-EPI 2020 equation that does not use a race coefficient. Blood Venous blood specimen / Unknown Venipuncture / Unknown 06/26/2025 3:47 AM EDT 06/26/2025 4:09 AM EDT us Chilo Morales MD LAB BLOOD ORDERABLES Final Result Performing Organization Address City/[facility] Co de Phone Number [facility] [address] [place] [address] * Phosphorus, Plasma (06/26/2025 3:47 AM EDT) Phosphorus, Plasma 3.4 2.5 - 4.5 mg/dL 06/26/2025 4:51 AM EDT [facility] Blood Venous blood specimen / Unknown Venipuncture / Unknown 06/26/2025 3:47 AM EDT 06/26/2025 4:09 AM EDT us Chilo Morales MD LAB BLOOD ORDERABLES Final Result Performing Organization Address [facility] Phone Number [facility] [address] [place] [address] * (ABNORMAL) Magnesium, Plasma (06/26/2025 3:47 AM EDT) Magnesium, Plasma 1.7(L) 1.9 - 2.4 mg/dL 06/26/2025 4:51 AM EDT [facility] Blood Venous blood specimen / Unknown Venipuncture / Unknown 06/26/2025 3:47 AM EDT 06/26/2025 4:09 AM EDT us Chilo Morales MD LAB BLOOD ORDERABLES Final Result Performing Organization Address City/[facility] Co de Phone Number [facility] [address] [place] [address] * (ABNORMAL) CBC and Differential (06/26/2025 3:47 AM EDT) WBC Count 1.89(L) 3.70 - 10.30 10*3/uL LAB HEMATOLOGY METHOD 06/26/2025 4:54 AM EDT [facility] RBC Count 2.75(L) 3.90 - 5.20 10*6/uL LAB HEMATOLOGY METHOD 06/26/2025 4:54 AM EDT [facility] HGB 8.3(L) 11.2 - 15.7 g/dL LAB HEMATOLOGY METHOD 06/26/2025 4:54 AM EDT [facility] HCT 25.7(L) 34.0 - 45.0 % LAB HEMATOLOGY METHOD 06/26/2025 4:54 AM EDT [facility] Platelet Count 38(L) 155 - 369 10*3/uL LAB HEMATOLOGY METHOD 06/26/2025 4:54 AM EDT [facility] MCV 94 79 - 98 fL LAB HEMATOLOGY METHOD 06/26/2025 4:54 AM EDT [facility] MCH 30.2 26.0 - 32.0 pg LAB HEMATOLOGY METHOD 06/26/2025 4:54 AM EDT [facility] MCHC 32.3 30.7 - 35.5 g/dL LAB HEMATOLOGY METHOD 06/26/2025 4:54 AM EDT [facility] RDW 16.2(H) 11.5 - 14.5 % LAB HEMATOLOGY METHOD 06/26/2025 4:54 AM EDT [facility] MPV 12.5 8.8 - 12.5 fL LAB HEMATOLOGY METHOD 06/26/2025 4:54 AM EDT [facility] nRBC 0.0 <=0.0 per 100 WBCs LAB HEMATOLOGY METHOD 06/26/2025 4:54 AM EDT [facility] Differential Type Automated LAB HEMATOLOGY METHOD 06/26/2025 4:54 AM EDT [facility] Neutrophils % 39 % LAB HEMATOLOGY METHOD 06/26/2025 4:54 AM EDT [facility] Lymphocytes % 32 % LAB HEMATOLOGY METHOD 06/26/2025 4:54 AM EDT [facility] Monocytes % 23 % LAB HEMATOLOGY METHOD 06/26/2025 4:54 AM EDT [facility] Eosinophils % 4 % LAB HEMATOLOGY METHOD 06/26/2025 4:54 AM EDT [facility] Basophils % 1 % LAB HEMATOLOGY METHOD 06/26/2025 4:54 AM EDT [facility] Immature Granulocytes % 1 % LAB HEMATOLOGY METHOD 06/26/2025 4:54 AM EDT [facility] Neutrophils Absolute 0.75(LL) 1.60 - 6.10 10*3/uL LAB HEMATOLOGY METHOD 06/26/2025 4:54 AM EDT [facility] Lymphocytes Absolute 0.60(L) 1.20 - 3.90 10*3/uL LAB HEMATOLOGY METHOD 06/26/2025 4:54 AM EDT [facility] Monocytes Absolute 0.43 0.30 - 0.90 10*3/uL LAB HEMATOLOGY METHOD 06/26/2025 4:54 AM EDT [facility] Eosinophils Absolute 0.08 0.00 - 0.50 10*3/uL LAB HEMATOLOGY METHOD 06/26/2025 4:54 AM EDT [facility] Basophils Absolute 0.02 0.00 - 0.10 10*3/uL LAB HEMATOLOGY METHOD 06/26/2025 4:54 AM EDT [facility] Immature Granulocytes Absolute 0.01 0.00 - 0.06 10*3/uL LAB HEMATOLOGY METHOD 06/26/2025 4:54 AM EDT [facility] Blood Venous blood specimen / Unknown Venipuncture / Unknown 06/26/2025 3:47 AM EDT 06/26/2025 4:09 AM EDT Narrative [facility] - 06/26/2025 4:54 AM EDT Therapeutic decision making should be based on absolute values, rather than percentages. us Chilo Morales MD LAB BLOOD ORDERABLES Final Result Performing Organization Address City/State/[facility] Co de Phone Number [facility] [address] [place] [address] * (ABNORMAL) POCT glucose meter (06/25/2025 7:49 [...] 06/25/2025 7:51 PM EDT [facility] [employer] Set Up Operator ID Jeannie Espinoza 025 7:51 PM EDT [facility] Device ID [id number] 06/25/2025 7:51 PM EDT [facility] Specimen Type POC Capillary 06/25/2025 7:51 PM EDT [facility] Blood Capillary blood specimen / Unknown 06/25/2025 7:49 PM EDT 06/25/2025 7:51 PM EDT us Chilo Morales MD LAB POINT OF CARE T EST DOCKED DEVICE UNSOLICITED RESULTS Final Result Performing Organization Address City/[facility]/ZIP Co de Phone Number [facility] [address] [place] [address] * (ABNORMAL) POCT glucose meter (06/25/2025 6:18 PM EDT) [facility] POCT Glucose 175(H) 74 - 99 mg/dL [...] Comment 06/25/2025 6:19 PM EDT [facility] [employer] Grinder Set Up Operator ID Nadia Salazar 6:19 PM EDT [facility] Device ID [id number] 06/25/2025 6:19 PM EDT [facility] Specimen Type POC Capillary 06/25/2025 6:19 PM EDT [facility] Blood Capillary blood specimen / Unknown 06/25/2025 6:18 PM EDT 06/25/2025 6:19 PM EDT us Kadie Mauro MD LAB POINT OF CARE TE ST DOCKED DEVICE UNSOLICITED RESULTS Final Result Performing Organization Address City/[facility]/ZIP Co de Phone Number [facility] [address] [place] [address] * XR Chest 1 View (06/25/2025 3:53 [...] LAB HEMATOLOGY METHOD 06/25/2025 4:38 PM EDT [facility] Elliptocytes/Ova locytes Present LAB HEMATOLOGY METHOD 06/25/2025 4:38 PM EDT [facility] RBC Morphology Slide Reviewed LAB HEMATOLOGY METHOD 06/25/2025 4:38 PM EDT [facility] Platelet Estimate Platelet smear estimate consistent with automated count LAB HEMATOLOGY METHOD 06/25/2025 4:38 PM EDT [facility] Blood Venous blood specimen / Unknown Venipuncture / Unknown 06/25/2025 3:00 PM EDT 06/25/2025 3:10 PM EDT us Raymundo Childers MD LAB BLOOD ORDERABLES Final Resul t [facility] [address] [place] [address] * (ABNORMAL) Manual Differential (06/25/2025 3:00 PM EDT) Blasts % 0 % LAB HEMATOLOGY METHOD 06/25/2025 4:38 PM EDT [facility] Promyelocytes % 0 % LAB HEMATOLOGY METHOD 06/25/2025 4:38 PM EDT [facility] Myelocytes % 0 % LAB HEMATOLOGY METHOD 06/25/2025 4:38 PM EDT [facility] Metamyelocytes % 0 % LAB HEMATOLOGY METHOD 06/25/2025 4:38 PM EDT [facility] Neutrophils % 69 % LAB HEMATOLOGY METHOD 06/25/2025 4:38 PM EDT [facility] Lymphocytes % 15 % LAB HEMATOLOGY METHOD 06/25/2025 4:38 PM EDT [facility] Reactive Lymphocytes % 0 % LAB HEMATOLOGY METHOD 06/25/2025 4:38 PM EDT [facility] Monocytes % 11 % LAB HEMATOLOGY METHOD 06/25/2025 4:38 PM EDT [facility] Eosinophils % 1 % LAB HEMATOLOGY METHOD 06/25/2025 4:38 PM EDT [facility] Basophils % 4 % LAB HEMATOLOGY METHOD 06/25/2025 4:38 PM EDT [facility] Blasts Absolute LAB HEMATOLOGY METHOD 06/25/2025 4:38 PM EDT [facility] Promyelocytes Absolute LAB HEMATOLOGY METHOD 06/25/2025 4:38 PM EDT [facility] Myelocytes Absolute LAB HEMATOLOGY METHOD 06/25/2025 4:38 PM EDT [facility] Metamyelocytes Absolute LAB HEMATOLOGY METHOD 06/25/2025 4:38 PM EDT [facility] Neutrophils Absolute 1.61 1.60 - 6.10 10*3/uL LAB HEMATOLOGY METHOD 06/25/2025 4:38 PM EDT [facility] Lymphocytes Absolute 0.35(L) 1.20 - 3.90 10*3/uL LAB HEMATOLOGY METHOD 06/25/2025 4:38 PM EDT [facility] Reactive Lymphocytes Absolute LAB HEMATOLOGY METHOD 06/25/2025 4:38 PM EDT [facility] Monocytes Absolute 0.26(L) 0.30 - 0.90 10*3/uL LAB HEMATOLOGY METHOD 06/25/2025 4:38 PM EDT [facility] Eosinophils Absolute 0.02 0.00 - 0.50 10*3/uL LAB HEMATOLOGY METHOD 06/25/2025 4:38 PM EDT [facility] Basophils Absolute 0.09 0.00 - 0.10 10*3/uL LAB HEMATOLOGY METHOD 06/25/2025 4:38 PM EDT [facility] Blood Venous blood specimen / Unknown Venipuncture / Unknown 06/25/2025 3:00 PM EDT 06/25/2025 3:10 PM EDT us Raymundo Childers MD LAB BLOOD ORDERABLES Final Resul t [facility] [address] [place] [address] * Phosphorus (06/25/2025 3:00 PM EDT) Phosphorus, Plasma 3.5 2.5 - 4.5 mg/dL 06/25/2025 3:36 PM EDT [facility] Blood Venous blood specimen / Unknown Venipuncture / Unknown 06/25/2025 3:00 PM EDT 06/25/2025 3:11 PM EDT us Raymundo Childers MD LAB BLOOD ORDERABLES Final Resul t [facility] [address] [place] [address] * (ABNORMAL) Magnesium (06/25/2025 3:00 PM EDT) Magnesium, Plasma 1.6(L) 1.9 - 2.4 mg/dL 06/25/2025 3:36 PM EDT [facility] Blood Venous blood specimen / Unknown Venipuncture / Unknown 06/25/2025 3:00 PM EDT 06/25/2025 3:11 PM EDT us Raymundo Childers MD LAB BLOOD ORDERABLES Final Resul t [facility] [address] [place] [address] * (ABNORMAL) CMP (06/25/2025 3:00 PM EDT) Glucose, Plasma 242(H) 74 - 99 mg/dL 06/25/2025 3:36 PM EDT [facility] BUN, Plasma 37(H) 8 - 23 mg/dL 06/25/2025 3:36 PM EDT [facility] Creatinine, Plasma 2.50(H) 0.60 - 1.10 mg/dL 06/25/2025 3:36 PM EDT [facility] BUN/Creatinine Ratio 15 06/25/2025 3:36 PM EDT [facility] Sodium, Plasma 132(L) 136 - 145 mmol/L 06/25/2025 3:36 PM EDT [facility] Potassium, Plasma 4.3 3.6 - 4.9 mmol/L 06/25/2025 3:36 PM EDT [facility] Chloride, Plasma 104 97 - 107 mmol/L 06/25/2025 3:36 PM EDT [facility] CO2, Plasma 17(L) 22 - 29 mmol/L 06/25/2025 3:36 PM EDT [facility] Anion Gap 11 6 - 16 mmol/L 06/25/2025 3:36 PM EDT [facility] Total Calcium, Plasma 9.1 8.9 - 10.2 mg/dL 06/25/2025 3:36 PM EDT [facility] Total Protein 6.7 6.3 - 7.9 g/dL 06/25/2025 3:36 PM EDT [facility] Albumin, Plasma 3.0(L) 3.5 - 5.2 g/dL 06/25/2025 3:36 PM EDT [facility] AST, Plasma 76(H) 10 - 35 U/L 06/25/2025 3:36 PM EDT [facility] ALT, Plasma 29 10 - 35 U/L 06/25/2025 3:36 PM EDT [facility] Alkaline Phosphatase, Plasma 218(H) 46 - 142 U/L 06/25/2025 3:36 PM EDT [facility] Total Bilirubin, Plasma 2.1(H) 0.2 - 1.1 mg/dL 06/25/2025 3:36 PM EDT [facility] eGFRcr 21.3 mL/min/1.7 3m*2 06/25/2025 3:36 PM EDT [facility] Comment:Reported eGFRcr in m L/min/1.73m2 is based the CKD-EPI 2020 equation that does not use a race coefficient. Blood Venous blood specimen / Unknown Venipuncture / Unknown 06/25/2025 3:00 PM EDT 06/25/2025 3:11 PM EDT us Raymundo Childers MD LAB BLOOD ORDERABLES Final Resul t [facility] [address] [place] [address] * (ABNORMAL) PT-INR (06/25/2025 3:00 PM EDT) Prothrombin Time 22.3(H) 12.0 - 14.3 sec 06/25/2025 3:32 PM EDT [facility] INR 2.0(H) 0.9 - 1.1 06/25/2025 3:32 PM EDT [facility] Blood Venous blood specimen / Unknown Venipuncture / Unknown 06/25/2025 3:00 PM EDT 06/25/2025 3:11 PM EDT Narrative [facility] - 06/25/2025 3:32 PM EDT OPTIMAL INR RANGES FOR PATIENT ON ORAL ANTICOAGULANT THERAPY Prevention of venous thromboembolism INR 2.0 to 3.0 In patients with heart disease: Atrial fibrillation INR 2.0 to 3.0 Valvular heart disease INR 2.0 to 3.0 Tissue heart valves INR 2.0 to 3.0 Mechanical prosthetic valves INR 2.5 to 3.5 Prevention of recurrent RI INR 2.5 to 3.5 us Raymundo Childers MD LAB BLOOD ORDERABLES Final Resul t [facility] [address] [place] [address] * (ABNORMAL) CBC w/diff (06/25/2025 3:00 PM EDT) WBC Count 2.33(L) 3.70 - 10.30 10*3/uL LAB HEMATOLOGY METHOD 06/25/2025 4:38 PM EDT [facility] RBC Count 2.99(L) 3.90 - 5.20 10*6/uL LAB HEMATOLOGY METHOD 06/25/2025 4:38 PM EDT [facility] HGB 9.3(L) 11.2 - 15.7 g/dL LAB HEMATOLOGY METHOD 06/25/2025 4:38 PM EDT [facility] HCT 28.0(L) 34.0 - 45.0 % LAB HEMATOLOGY METHOD 06/25/2025 4:38 PM EDT [facility] Platelet Count 39(L) 155 - 369 10*3/uL LAB HEMATOLOGY METHOD 06/25/2025 4:38 PM EDT [facility] MCV 94 79 - 98 fL LAB HEMATOLOGY METHOD 06/25/2025 4:38 PM EDT [facility] MCH 31.1 26.0 - 32.0 pg LAB HEMATOLOGY METHOD 06/25/2025 4:38 PM EDT [facility] MCHC 33.2 30.7 - 35.5 g/dL LAB HEMATOLOGY METHOD 06/25/2025 4:38 PM EDT [facility] RDW 16.2(H) 11.5 - 14.5 % LAB HEMATOLOGY METHOD 06/25/2025 4:38 PM EDT [facility] MPV 11.6 8.8 - 12.5 fL LAB HEMATOLOGY METHOD 06/25/2025 4:38 PM EDT [facility] nRBC 0.0 <=0.0 per 100 WBCs LAB HEMATOLOGY METHOD 06/25/2025 4:38 PM EDT [facility] Differential Type Manual LAB HEMATOLOGY METHOD 06/25/2025 4:38 PM EDT [facility] Blood Venous blood specimen / Unknown Venipuncture / Unknown 06/25/2025 3:00 PM EDT 06/25/2025 3:10 PM EDT Narrative [facility] - 06/25/2025 4:38 [...] MD LAB BLOOD ORDERABLES Final Resul t [facility] [address] [place] [address] * ECG Adult (06/25/2025 2:48 PM EDT) EKG DIAGNOSIS CLASS Abnormal MUSE ECG Ventricular Rate 61 BPM MUSE ECG QRSD Interval 86 ms MUSE ECG QT Interval 448 ms MUSE ECG QTC Interval 450 ms MUSE ECG R [place] -25 degrees MUSE ECG T Wave [place] 25 degrees MUSE ECG Diagnosis Poor data [...] ECG ORDERABLES Final Result Performing Organization Address City/[facility] Co de Phone Number MUSE ECG * [...] 06/25/2025 2:29 PM EDT [facility] Center[employer] Grinder Set Up Operator ID Hanane Washington 2:29 PM EDT [facility] Device ID [id number] 06/25/2025 2:29 PM EDT [facility] Specimen Type POC Capillary 06/25/2025 2:29 PM EDT [facility] Blood Capillary blood specimen / Unknown 06/25/2025 2:27 PM EDT 06/25/2025 2:29 PM EDT us Generic Provider Poct LAB POINT OF CARE TEST DOCKED DEVICE UNSOLICITED RESULTS Final Result Performing Organization Address City/[facility]/ZIP Co de Phone Number [facility] [address] [place] [address] documented in this encounter Visit Diagnoses Diagnosis [...] stage 3b (CMS/HCC) 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 peripheral [...] Tue06/25/25 at 213, Until Tue07/09/25 at 1519, Administer over 15 Minutes, Routine, low blood sugar BG 51-89 mg/dL dextrose 10 % (D10W) bolus 250 mL 250 mL, Intravenous, Every 15 min PRN, Starting on Tue06/25/25 at 213, Until Tue07/09/25 at 1519, Administer over 15 [...] 2 g, Intravenous, Once, 1 dose, On Tue06/27/25 at 1700, Routine New Bag 06/27/2025 5:02 [...] Provider: Mariam Gonzalez RN)1713 (Given - Provider: Mairam Gonzalez RN) 0908 (Not Given - Provider: [...] 0908 (Medication Removed - Provider: Mariam Gonzalez RN)2210 [...] Discontinued 0845 (Given - Provider: Mariam Gonzalez RN)1711 (Given - Provider: Mariam Gonzalez RN)2106 (Given [...] on Tue06/25/25 at 1940, Until Discontinued, Routine 0918 (Given - Provider: Mariam Gonzalez RN)2108 (Given - Provider: Felecia Khanna) 09 (Given - Provider: Mariam Gonzalez RN)2026 (Given - Provider: Felecai Khanna) 0654 (Given - Provider: Felecia Khanna) [...] on Tue06/25/25 at 1930, Until Tue07/09/25 at 151, Routine, line care sodium chloride 0.9 % [...] PRN, Starting on Tue06/25/25 at 2136, Until e 07/09/25 at 1519, Administer over 15 Minutes, Routine, [...] documented as of this encounter Care Teams Parachute Taper Relationship Specialty Start Date End Date Alvarez Ordaz MD [address] [place] [phone] PCP - General Family Medicine 12/07/24 Lea Fernando [address] [facility] [address] [place] [address] Angular [employer] Developer Endocrinology 08/29/24 Rachel Ray, CHILD & ADOLESCENT PSYCHIATRIST [address] [facility] [address] [place] [address] Nurse Practitioner Gastroenterology 09/24/24 Tamera Isabel LPN VALUE-BASED TRANSFORMATION PROGRAM Licensed Practical Nurse 05/29/25 Alina Lovett, RN CH-VASCULAR & INTERVENTIONAL RADIOLOGY Registered Nurse 06/26/25 06/26/25 documented as of this encounter
--- OUTSIDE RECORDS SUMMARY | 2025-07-11 09:01 | XMS_ITS | Encounter Summary ---
Author Organization [facility] Address [address] [place] [address] Care Team Providers Care Fruit Grader Operator Name Role Phone Lea Fernando Unavailable [phone] Rachel Ray APRN Unavailable [phone] Alvarez Zimmer MD Primary Care Provider [phone] Tamera Isabel DIRECTOR MUSIC Unavailable Unavailabl Monique Garay DIRECTOR MUSIC Unavailable Unavailable Reason for Referral * Clinic-Administered Medication (Routine) - Closed Specialty Diagnoses / Procedures Referred By Eder t Referred To Contact Diagnoses Other ascites Procedures AK ABDOM PARACENTESIS DX/THER W IMAGING GUIDANCE Micheal Glasgow APRN, DNP [address] [place] [address] Phone: tel: fax: [facility] [address] [place] [address] Phone: tel: fax: Referral ID Status Reason Start Date Expiration Date Visits Re quested Visits Authorized [id number] Closed 07/11/2025 01/10/2027 1 1 * Imaging (Routine) - Closed Specialty Diagnoses / Procedures Referred By Contherbert t Referred To Contact Radiology Diagnoses Shortness of breath Pleural effusion Procedures US Guided Thoracentesis Marianna Gordon APRN [address] [place] [address] Phone: tel: fax: Referral ID Status Reason Start Date Expiration Date Visits Re quested Visits Authorized [id number] Closed 06/14/2025 12/14/2026 1 1 Reason for Visit * Imaging (Routine) - Closed Specialty Diagnoses / Procedures Referred By Eder zhu Referred To Contact Radiology Diagnoses Shortness of breath Pleural effusion Procedures US Guided Thoracentesis Marianna Gordon APRN [address] [place] [address] Phone: tel: fax: Referral ID Status Reason Start Date Expiration Date Visits Re quested Visits Authorized [id number] Closed 06/14/2025 12/14/2026 1 1 Encounter Details Date Type Department Care Team (Latest Contact Info) Description 07/11/2025 9:01 AM EDT - 07/11/2025 12:09 PM EDT Hospital Encounter [facility] Interventional Radiology [address] [place] [address] Stacy Houston RN EMERGENCY SERVICES Shortness of breath; Pleural effusion; Other ascites Discharge Disposition: Home or Self [...] 01/10/2025 How often do you attend [facility] or holiness services? Patient unable to [...] often do you attend [facility] or holiness services? Never 05/29/2025 Do you [...] more drinks on one occasion? Never 06/25/2025 [facility] of Occupat ional [...] living in a longterm (including now)? No 06/26/2025 CAGE ASSESSMENT Answer [...] drink first t kennedy in the morning (EYE-BASIC SCIENCES PROFESSOR) to steady your nerves or to get rid of a hangover? 0 06/25/2025 CAGE Questionnaire Score 0 025 Utilities Answer Date Recorded In the past 12 months has brina Spinnakr, gas, oil, or water [facility] threatened to shut off services in your [...] Sign Reading Time Taken Comments Blood Pressure 93/56 07/11/2025 12:00 PM EDT Pulse 78 07/11/2025 12:00 PM EDT Temperature 36.2 C (97.1 F) 07/11/2025 9:15 AM EDT Respiratory Rate 18 07/11/2025 12:00 PM EDT Oxygen Saturation 98% 07/11/2025 12:00 PM EDT Inhaled Oxygen Concentration - - Weight 79.5 kg (175 lb 4.3 oz) 07/11/2025 9:15 A M EDT Height 165.1 cm (5' 5 ) 07/11/2025 9:15 AM EDT Body Mass Index 29.17 07/11/2025 9:15 AM EDT documented in this encounter Discharge Instructions * Discharge Instructions* Stacy Houston RN - 07/11/2025 12:44 PM EDT *Interventional Radiology* (IR) Questions/Concerns & Appointments If there are questions or concerns after discharge please call: [facility] Inter[facility]iology Clinic at [phone] Tuesday - Tuesday 8:00 AM to 4:30 PM After hours, weekends, and holidays please call [phone] and ask for the Interventional Radiology provider/Resident on-call For Emergencies please go to the nearest Emergency Room or dial 911. Intervention Radiology Appointments: If you need to reschedule a procedure, please call our Schedulers at [phone], option [phone]. If you need to schedule or reschedule a clinic appointment, please call [phone]. [facility] Interventional Radiology [facility] [address] [place] [address] documented in this encounter Medications at Time [...] 1 03/01/2025 ergocalciferol (Vitamin D-2) 1.25 MG (01541 UT) capsuleIndication s:Vitamin D deficiency Take 1 [...] night as needed for itching. 07/09/2025 insulin lispro (Admelog) 100 UNIT/ML injection [...] as of this encounter Miscellaneous Notes * Stacy Garcia, RN - 07/11/2025 12:44 PM EDT Images from the original note were not included. [address] Discharge Instructions for Paracentesis Paracentesis is a [...] fainting. Last Reviewed Date: 2025 00:00:00 ?? [id number] [employer]. All rights reserved. This information is not intended as a substitute for professional medical care. Always follow your healthcare professional's instructions. * [facility] Stacy Houston RN - 07/11/2025 12:44 PM EDT Images from the original note were not included. [id number] Discharge Instructions for Thoracentesis Thoracentesis is a [...] blood. Last Reviewed Date: 2025 00:00:00 ?? [id number] [employer]. All rights reserved. This information is not intended as a substitute for professional medical care. Always follow your healthcare professional's instructions. * Post-Procedure Note - Micheal Glasgow APRN, DNP - 07/11/2025 10:15 AM EDT Vascular and Interventional Radiology Brief Postprocedure Note Provider: ADRI Glasgow Pre-operative Diagnosis: Right hepatic hydrothorax Post-operative Diagnosis: Same Type of Anesthesia: Local Description of Findings: Large right pleural effusion Technical/Surgical Procedures Used: Right sided thoracentesis Complications: None Estimated Blood Loss: none Procedure Events Event Event Time See detailed result report with images in PACS. The patient tolerated the procedure well without incident or complication and is in stable condition. * Interval H&P Note - Micheal Glasgow APRN, DNP - 07/11/2025 10:15 AM EDT Reviewed H&P, no acute changes Source Note - Micheal Glasgow APRN, DNP - 07/03/2025 10:34 AM EDT 07/03/25 Patient: Gabi Zimmer Date of : 1960[address]64 y.o. Date of Visit: July 03, 2025 Requesting Service: Fabiana Cunningham MD Chief Complaint: Abnormal lab History of Present Illness: Gabi Zimmer is a 64 y.o. 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 She is presenting to on 06/25/25from Nephrology clinic with concern for CARLOTTA and inability to care for self. Ms. Zimmer is well known to IR, undergoing outpatient [...] - Any questions with scheduling please call [phone] - Please place orders for desired fluid studies to be sent for analysis prior to procedure Thank you for allowing us to participate in the care of this patient. Micheal Glasgow, HEAD ESTHETICIAN, DNP Interventional Radiology [phone] [1] Past Medical History: Diagnosis Date ADHD (attention deficit hyperactivity disorder) Allergic Anxiety disorder, unspecified Anxiety Bleeding gums Blood in urine Cataract Chronic kidney disease Cirrhosis (CMS/HCC) Colon cancer screening 09/20/2019 Added automatically from request for surgery [id number] Coronary artery disease Depression 1995 Diabetes mellitus [...] 1979 BLADDER SURGERY N/A Bladder surgery from [facility] BREAST BIOPSY 2011 BREAST SURGERY 2010 BUNIONECTOMY Right CATARACT EXTRACTION Bilateral 2016 CHOLECYSTECTOMY 1980 ESOPHAGOGASTRODUODENOSCOPY HYSTERECTOMY N/A Hysterectomy from [facility] KNEE SURGERY Bilateral ORAL SURGERY N/A Oral surgery from [facility] OTHER SURGICAL HISTORY 2015 ROOT CANAL WISDOM TOOTH EXTRACTION [3] Social History Tobacco Use Smoking status: Never Passive exposure: Never Smokeless tobacco: Never Vaping Use Vaping status: Never Used Substance Use Topics Alcohol use: Not Currently Drug use: Never [4] No Known Allergies [5] Current Facility-Administered Medications: albumin human 25 % infusion 12.5 g, 12.5 g, Intravenous, q15 min PRN, Marianna Gordon, HEAD ESTHETICIAN albumin human 25 % infusion 87.5 g, 1 g/kg, Intravenous, q24h, Dayne Medel R, DO, 87.5 g at 07/02/25 1227 benzonatate (Tessalon) capsule 100 mg, 100 mg, Oral, TID PRN, Veronica Del Valle K, DO calcitriol (Rocaltrol) capsule 0.25 mcg, 0.25 mcg, Oral, Daily, Blayne Zimmer, , 0.25 mcg at 07/03/25 0935 calcium carbonate (Tums) chewable tablet 750 mg, 750 mg, Oral, Daily, Blayne Zimmer DO, 750 mg at07/03/25 0935 capsaicin (Zostrix) 0.025 % cream, , Topical, BID PRN, Blayne Zimmer, cetirizine (ZyrTEC) tablet 10 mg, 10 mg, Oral, Daily, Blayne Zimmer DO, 10 mg at 07/03/25 0935 cholecalciferol (Vitamin D-3) tablet 1,000 Units, 1,000 Units, Oral, Daily, Blayne Zimmer DO, 1,000 Units at 07/03/25 0935 ciprofloxacin (Cipro) tablet 500 mg, 500 mg, Oral, Daily, Blayne Zimmer, , 500 mg at 07/03/25 0935 glucose (Glutose) 40 % oral gel 15-30 grams of glucose, 15-30 grams of glucose, Sublingual, q15 minPRN OR dextrose 10 % (D10W) bolus 125 mL, 125 mL, Intravenous, q15 min PRN OR dextrose 10 %(D10W) bolus 250 mL, 250 mL, Intravenous, q15 min PRN OR glucagon (human recombinant) injection1 mg, 1 mg, Intramuscular, q15 min PRN, Blayne Zimmer DO heparin (porcine) injection 5,000 Units, 5,000 Units, Subcutaneous, q12h, Irvin Ball MD, 5,000 Units at 07/03/25 0934 insulin glargine-yfgn 100 UNIT/ML injection 24 Units, 24 Units, Subcutaneous, Daily, Blayne Zimmer DO, 24 Units at 07/03/25 0936 insulin lispro (Admelog) 100 units/mL injection - Correction - Resistant Dose, 0-10 Units, Subcutaneous, TID with meals, Blayne Zimmer DO, 2 Units at 07/02/25 1226 insulin lispro (Admelog) injection - Correction - Nighttime Dose, 0-3 Units, Subcutaneous, Twice atnight, Blayne Zimmer DO lactulose (Chronulac) 10 GM/15ML solution 20 g, 20 g, Oral, TID, Blayne Zimmer DO, 20 g at 07/03/25 0934 magnesium oxide (Mag-Ox) tablet 400 mg, 400 mg, Oral, Daily, Blayne Zimmer DO, 400 mg at 111 midodrine (Proamatine) tablet 15 mg, 15 mg, Oral, TID, Dayne Medel, DO, 15 mg at 07/03/25 0935 rifAXIMin (Xifaxan) tablet 550 mg, 550 mg, Oral, BID, Blayne Zimmer DO, 550 mg at 07/03/25 0934 [COMPLETED] Insert peripheral IV, , , Once AND [COMPLETED] Saline lock IV, , , Once AND sodium chloride 0.9 % flush 10 mL, 10 mL, Intravenous, q12h, 10 mL at 07/03/25 1004 AND sodium chloride 0.9 % flush 10 mL, 10 mL, Intravenous, PRN, Blayne Zimmer DO Insert peripheral IV, , , Once AND Saline lock IV, , , Once AND sodium chloride 0.9 % flush10 mL, 10 mL, Intravenous, q12h, 10 mL at 07/03/25 0015 AND sodium chloride 0.9 % flush 10 mL, 10 mL, Intravenous, PRN, Maria Dolores Ontiveros, ADRI, DNP documented in this encounter Plan of Treatment Upcoming Encounters Date Type Department Care Team (Late st Contact Info) Description 08/26/2025 1:00 PM EDT Office Visit [facility] Endocrinology [address] [place] [phone] Miranda Hobson, HEAD ESTHETICIAN [address] [place] [address] 08/29/2025 10:00 AM EDT Appointment [facility] Interventional Radiology [address] [place] [address] 08/29/2025 11:00 AM EDT Appointment [facility] Interventional Radiology [address] [place] [address] 09/03/2025 8:40 AM EDT Office Visit [facility] [address], [address] [place] [address] Lillie Pritchard MD [address] [place] [address] 09/05/2025 10:00 AM EDT Appointment [facility] Interventional Radiology [address] [place] [address] 09/05/2025 11:00 AM EDT Appointment [facility] Interventional Radiology [address] [place] [address] 09/17/2025 9:45 AM EDT Clinical Support [facility] [address] [place] [address] 09/17/2025 10:30 AM EDT Social Work [facility] [address] [place] [address] Lea Reilly, [place] [address] 09/17/2025 11:20 AM EDT Office Visit [facility] [place] [address] [place] [address] Octavia Herrera, PA [address] [place] [address] documented as of this encounter Procedures Procedure Name Priority Date/Time Associated Diagnosis Comments XR CHEST 1 VIEW STAT 07/11/2025 12:21 PM EDT US GUIDED THORACENTESIS Routine 07/11/2025 11:41 AM EDT Shortness of breath Pleural effusion US ABDOMEN FOCUSED REGION Routine 07/11/2025 11:41 AM EDT Other ascites documented in this encounter Results * XR Chest 1 View (07/11/2025 12:21 PM EDT) Anatomical Region Laterality Modality Chest Digital Radiogra phy Impressions 07/11/2025 12:36 PM EDT No pneumothorax. CRITICAL RESULT: No. COMMUNICATION: Per this written report Drafted by Bari Aguillon MD on 07/11/2025 12:35 PM Final report signed by Bari Aguillon MD on 07/11/2025 12:36 PM Narrative 07/11/2025 12:36 PM EDT CLINICAL INDICATION: s/p right thora TECHNIQUE: XR CHEST 1 VIEW COMPARISON: July 04, 2025 FINDINGS: No pneumothorax. Basal opacities are likely atelectasis. Mediastinal and cardiac contours are stable. Procedure Note Bari Aguillon MD - 07/11/2025 CLINICAL INDICATION: s/p right thora TECHNIQUE: XR CHEST 1 VIEW COMPARISON: July 04, 2025 FINDINGS: No pneumothorax. Basal opacities are likely atelectasis. Mediastinal andcardiac contours are stable. IMPRESSION: No pneumothorax. CRITICAL RESULT: No. COMMUNICATION: Per this written report Drafted by Bari Aguillon MD on 07/11/2025 12:35 PM Final report signed by Bari Aguillon MD on 07/11/2025 12:36 PM us Micheal Glasgow APRN, DNP IMG XR PROCEDURES Tari l Result * US Abdomen Focused Region Other (07/11/2025 11:41 AM EDT) Anatomical Region Laterality Modality Abdomen Ultrasound Impressions 07/11/2025 4:21 PM EDT Technically successful abdominal ultrasound No paracentesis completed CRITICAL RESULT: No. COMMUNICATION: Per this written report. Preliminary report signed by SOLANGE Toure on 07/11/2025 1:09 PM By electronically signing this report, I, the attending physician, attest that I was not present for the procedure(s) but agree with the final edited report. Drafted by SOLANGE Toure on 07/11/2025 1:07 PM Final report signed by Dina Rose MD on 07/11/2025 4:21 PM Narrative 07/11/2025 4:21 PM EDT CLINICAL INDICATION: Gabi Zimmer is a 64 y.o. 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 FINDINGS: Small volume RLQ ascites. No ascites present in LLQ, LUQ, RUQ. Paracentesis not completed COMPLICATION: No. Procedure Note Dina Rose MD - 07/11/2025 CLINICAL INDICATION: Gabi Zimmer is a 64 y.o. 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 FINDINGS: Small volume RLQ ascites. No ascites present in LLQ, LUQ, RUQ.Paracentesis not completed COMPLICATION: No. IMPRESSION: Technically successful abdominal ultrasound No paracentesis completed CRITICAL RESULT: No. COMMUNICATION: Per this written report. Preliminary report signed by SOLANGE Toure on 07/11/2025 1:09 PM By electronically signing this report, I, the attending physician, attestthat I was not present for the procedure(s) but agree with the finaledited report. Drafted by SOLANGE Toure on 07/11/2025 1:07 PM Final report signed by Dina Rose MD on 07/11/2025 4:21 PM us Marianna N Gabriealeks HEAD ESTHETICIAN IMG US PROCEDURES Final Resu lt * US Guided Thoracentesis (07/11/2025 11:41 AM EDT) Anatomical Region Laterality Modality Chest Ultrasound Impressions 07/11/2025 4:04 PM EDT Technically successful ultrasound guided thoracentesis. A total of 900 mL of clear yellow fluid was removed. CRITICAL RESULT: No. COMMUNICATION: Per this written report. Preliminary report signed by SOLANGE Toure on 07/11/2025 1:29 PM By electronically signing this report, I, the attending physician, attest that I was not present for the procedure(s) but agree with the final edited report. Drafted by SOLANGE Toure on 07/11/2025 1:09 PM Final report signed by Dina Rose MD on 07/11/2025 4:04 PM Narrative 07/11/2025 4:04 PM EDT CLINICAL INDICATION: Gabi Zimmer is a 64 y.o. 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 Rad Dose: NA Medications: Continuous physiologic monitoring provided by a qualified healthcare professional. Administered: 1% Lidocaine SQ. Antibiotics: NA Time out: 1126 Procedure: After discussion of risks and benefits, [...] lidocaine used for local analgesia. Under direct real-time ultrasound guidance, a 6 Fr safety-centesis catheter was advanced into the pleural fluid. Ultrasound images were sent to permanent storage in PACS. A total of 900 mL of clear yellow fluid was removed. The needle was removed and occlusive dressing applied. The patient tolerated the procedure well. The patient left the IR suite in stable condition. COMPARISON: None. FINDINGS: Moderate right sided pleural effusion COMPLICATION: No. Procedure Note Dina Rose MD - 07/11/2025 CLINICAL INDICATION: Gabi Zimmer is a 64 y.o. 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 Rad Dose: NA Medications: Continuous physiologic monitoring provided by a qualifiedhealthcare professional. Administered: 1% Lidocaine SQ. Antibiotics: NA Time out: 1126 Procedure: After discussion of risks and benefits, [...] 1% lidocaine used for localanalgesia. Under direct real-time ultrasound guidance, a 6 Frsafety-centesis catheter was advanced into the pleural fluid. Ultrasoundimages were sent to permanent storage in PACS. A total of 900 mL of clearyellow fluid was removed. The needle was removed and occlusive dressingapplied. The patient tolerated the procedure well. The patient left the IR suitein stable condition. COMPARISON: None. FINDINGS: Moderate right sided pleural effusion COMPLICATION: No. IMPRESSION: Technically successful ultrasound guided thoracentesis. A total of 900 mL of clear yellow fluid was removed. CRITICAL RESULT: No. COMMUNICATION: Per this written report. Preliminary report signed by SOLANGE Toure on 07/11/2025 1:29 PM By electronically signing this report, I, the attending physician, attestthat I was not present for the procedure(s) but agree with the finaledited report. Drafted by SOLANGE Toure on 07/11/2025 1:09 PM Final report signed by Dina Rose MD on 07/11/2025 4:04 PM us Mariannaarelis Gordon HEAD ESTHETICIAN IMG US PROCEDURES Final Resu lt documented in this encounter Visit Diagnoses Diagnosis Shortness of breath Pleural effusion Unspecified pleural effusion Other ascites documented in this encounter Administered Medications Inactive Administered Medications - up to 3 most recent administrations Medication Order MAR Action Action Date Dose Rate Site albumin human 25 % infusion 37.5 g 37.5 g, Intravenous, Once as needed, 1 dose, Starting on Sarahi 07/11/25 at 1107, Until Sarahi 07/11/25 at 1115, Routine, Intraprocedure, For 5-6.9 L drained New Bag 07/11/2025 11:15 AM EDT 37.5 g lidocaine 1% in sodium bicarbonate (buffered lidocaine)10 mL 10 mL, Infiltration, Once, 1 dose, On Sarahi 07/11/25 at 1015, Routine, Holding - Preprocedure Given 07/11/2025 11:27 AM EDT 10 mL Back documented in this encounter Additional Health Concerns Assessment Noted Time PHQ-9 Depression Total Score: 6 06/11/20 10:59 AM EDT A fall risk assessment has been complete d for the patient 06/25/2025 12:59 PM EDT A Body Mass Index follow-up plan has been documented for the patient 07/11/2025 12:44 PM EDT documented as of this encounter Care Teams Fruit Grader Operator Relationship Specialty Start Date End Date Alvarez Zimmer MD [address] [place] [id number] PCP - General Family Medicine 12/07/24 Lea Fernando [address] [place] [phone] Marine [employer] Station Attendant Endocrinology 08/29/24 Rachel Ray APRN [address] [facility] [address] [place] [phone] Nurse Practitioner Gastroenterology 09/24/24 Tamera Isabel, DIRECTOR MUSIC VALUE-BASED TRANSFORMATION PROGRAM Licensed Practical Nurse 05/29/25 Monique Tapia LPN VALUE-BASED [place] [address] TCM Nurse 07/10/25 08/09/25 documented as of this encounter
--- OUTSIDE RECORDS SUMMARY | 2025-07-11 12:10 | XMS_ITS | Encounter Summary ---
Author Organization [facility] Address [address] [place] [address] Care Team Providers Care Production Support Analyst Name Role Phone Lea Fernando Unavailable [phone] Rachel Ray AUTOMOBILE BODY REPAIRER HELPER Unavailable [phone] Alvarez Zimmer MD Primary Care Provider Tamera Isabel TRENCH TRIMMER FINE Unavailable Unavailabl Monique Garay TRENCH TRIMMER FINE Unavailable Unavailable Encounter Details Date Type Department Care Team (Latest Contact Info) Description 07/11/2025 12:10 PM EDT - 07/11/2025 11:59 PM EDT Hospital Encounter [facility] Radiology [address] [place] [address] Discharge Disposition: Home or Self Care Social [...] How often do you attend [facility] or zoroastrianism services? Patient unable to answer 01/10/2025 Do you belong to any clubs o r organizations such as druze groups, unions, [employer] or athletic groups, or school groups? Patient [...] often do you attend chur ch or zoroastrianism services? Never 05/29/2025 Do you [...] more drinks on one occasion? Never 06/25/2025 [facility] - Occupational Stress Questionnaire Answer [...] living in a long-term (including now)? No 06/26/2025 CAGE ASSESSMENT Answer [...] drink first t kennedy in the morning (EYE-PHYTOPATHOLOGY TEACHER) to steady your nerves or to get rid of a hangover? 0 06/25/2025 CAGE Questionnaire Score 0 025 Utilities Answer Date Recorded In the past 12 months has th e [employer], gas, oil, or water [employer] threatened to shut off services in your [...] 1 03/01/2025 ergocalciferol (Vitamin D-2) 1.25 MG (77887 UT) capsuleIndication s:Vitamin D deficiency Take 1 [...] rectum daily as needed for constipation. 07/09/2025 capsaicin (Zostrix-HP) 0.075 % topical cream Apply [...] on how to take your insulin. 07/09/2025 melatonin tablet Take 1 tablet by mouth [...] 03/01/2025 5 documented as of this encounter Plan of Treatment Upcoming Encounters Date Type Department Care Team (Late st Contact Info) Description 08/26/2025 1:00 PM EDT Office Visit [facility] End[facility]in[facility] [address] [place] [address] Miranda Hobson, AUTOMOBILE BODY REPAIRER HELPER [address] [place] [address] 08/29/2025 10:00 AM EDT Appointment [facility] Interventional Radiology [address] [place] [address] 08/29/2025 11:00 AM EDT Appointment [facility] Interventional Radiology [address] [place] [address] 09/03/2025 8:40 AM EDT Office Visit [address], [address] [place] [address] Lillie Pritchard MD [address] [place] [address] 09/05/2025 10:00 AM EDT Appointment [facility] Interventional Radiology [address] [place] [address] 09/05/2025 11:00 AM EDT Appointment [facility] Interventional Radiology [address] [place] [address] 09/17/2025 9:45 AM EDT Clinical Support [facility] [place] [address] [place] [address] 09/17/2025 10:30 AM EDT Social Work [facility] [place] [address] [place] [address] Lea Reilly, [place] [address] 09/17/2025 11:20 AM EDT Office Visit [facility] [place] [address] [place] [address] Octavia Herrera, PA [address] [facility] [address] [place] [address] documented as of this encounter Procedures Procedure Name Priority Date/Time Associated Diagnosis Comments XR CHEST 1 VIEW STAT 07/11/2025 12:21 PM EDT documented in this encounter Results [...] 07/11/2025 12:36 PM us Micheal E Pee AUTOMOBILE BODY REPAIRER HELPER, DNP IMG XR PROCEDURES Tari l Result [...] documented as of this encounter Care Teams Production Support Analyst Relationship Specialty Start Date End Date Alvarez Zimmer MD [address] [place], [place] [address] [place] [address] PCP - General Family Medicine 12/07/24 Lea Fernando [address] [place] [address] Science Technicians Endocrinology 08/29/24 Rachel Ray APRN [address] [place] [address] Nurse Practitioner Gastroenterology 09/24/24 Tamera Isabel LPN VALUE-BASED TRANSFORMATION PROGRAM Licensed Practical Nurse 05/29/25 Monique Tapia LPN VALUE[employer] [place] [address] TCM Nurse 07/10/25 08/09/25 documented as of this encounter
--- OUTSIDE RECORDS SUMMARY | 2025-07-18 09:08 | XMS_ITS | Encounter Summary ---
Author Organization [facility] Address [address] [place] [address] Care Team Providers Care Manager Life Name Role Phone Lea Fernando Unavailable [phone] Rachel Ray CONDENSER WINDER Unavailable [phone] Alvarez Zimmer MD Primary Care Provider Tamera Isabel MAT WORKER Unavailable Unavailabl Monique Garay MAT WORKER Unavailable Unavailable Reason for Referral * Clinic-Administered Medication (Routine) - Closed Specialty Diagnoses / Procedures Referred By Contac t Referred To Contact Diagnoses Other ascites Procedures SC ALBUMIN (HUMAN), 25%, 50ML Shaniqua Mccurdy APRN [address] [place] [address] Phone: tel: fax: Referral ID Status Reason Start Date Expiration Date Visits Re quested Visits Authorized [id number] Closed 07/18/2025 01/17/2027 1 1 * Imaging (Routine) - Closed Specialty Diagnoses / Procedures Referred By Contac t Referred To Contact Radiology Diagnoses Other ascites Procedures US Guided Abdominal Paracentesis Marianna Gordon APRN [address] [place] [address] Phone: tel: fax: Referral ID Status Reason Start Date Expiration Date Visits Re quested Visits Authorized [id number] Closed 06/14/2025 12/14/2026 1 1 * Imaging (Routine) - Closed Specialty Diagnoses / Procedures Referred By Contac t Referred To Contact Radiology Diagnoses Shortness of breath Pleural effusion Procedures US Guided Thoracentesis Marianna Gordon APRN [address] [place] [address] Phone: tel: fax: Referral ID Status Reason Start Date Expiration Date Visits Re quested Visits Authorized [id number] Closed 06/14/2025 12/14/2026 1 1 Reason for Visit * Imaging (Routine) - Closed Specialty Diagnoses / Procedures Referred By Contac t Referred To Contact Radiology Diagnoses Shortness of breath Pleural effusion Procedures US Guided Thoracentesis Marianna Gordon APRN [address] [place] [address] Phone: tel: fax: Referral ID Status Reason Start Date Expiration Date Visits Re quested Visits Authorized [id number] Closed 06/14/2025 12/14/2026 1 1 Encounter Details Date Type Department Care Team (Latest Contact Info) Description 07/18/2025 9:08 AM EDT - 07/18/2025 12:07 PM EDT Hospital Encounter [facility] Interventional Radiology [address] [place] [address] Stu Samayoa Shortness of breath; Pleural effusion; [...] week 01/10/2025 How often do you attend [facility] ch or restorationism services? Patient unable to answer [...] week 05/29/2025 How often do you attend [facility] ch or restorationism services? Never 05/29/2025 Do you [...] more drinks on one occasion? Never 06/25/2025 [facility] [...] living in a chcf (including now)? No 06/26/2025 CAGE ASSESSMENT Answer [...] drink first t kennedy in the morning (EYE-PLUGMAN) to steady your nerves or to get rid of a hangover? 0 06/25/2025 CAGE Questionnaire Score 0 025 Utilities Answer Date Recorded In the past 12 months has th [employer], gas, oil, or water company threatened to [...] call: [facility] Interventional Radiology Clinic at [phone] Tuesday - Tuesday 8:00 AM to 4:30 PM After hours, weekends, and holidays please call [phone] and ask for the Interventional Radiology provider/Resident on-call Intervention Radiology Appointments: If you need to reschedule a procedure, please call our Schedulers at [phone], option 4. If you need to schedule or reschedule a clinic appointment, please call [phone]. [facility] Interventional Radiology [facility] [address] [place] [address] documented in this encounter Medications at Time [...] 1 03/01/2025 ergocalciferol (Vitamin D-2) 1.25 MG (71592 UT) capsuleIndication s:Vitamin D deficiency Take 1 [...] Take 1 tablet by mouth nightly. 07/09/2025 Abaloparatide (Tymlos) 3120 MCG/1.56ML solution pen-injector Inject [...] daily as needed (Leg and foot cramps). hydrOXYzine HCl (Atarax) 25 MG tablet Take 0.5 tablets by mouth at night as needed for itching. 07/09/2025 insulin lispro (Admelog) 100 UNIT/ML injection Inject 0-3 Units under the skin 2 times a night. See After Visit Summary for instructions on how to take your insulin. 07/09/2025 melatonin tablet Take 1 tablet by mouth at night as needed for sleep. 07/09/2025 polyethylene glycol (Miralax) 17 g packet Take 17 g by mouth 2 times a day. 07/09/2025 Zegalogue 0.6 MG/0.6ML solution auto-injectorIndi cations:Type [...] - Any questions with scheduling please call [phone] - Please place orders for desired fluid studies to be sent for analysis prior to procedure Thank you for allowing us to participate in the care of this patient. Micheal Glasgow, CONDENSER WINDER, DNP Interventional Radiology [phone] [1] Past Medical History: Diagnosis Date ADHD (attention deficit hyperactivity disorder) Allergic Anxiety disorder, unspecified Anxiety Bleeding gums Blood in urine Cataract Chronic kidney disease Cirrhosis (CMS/HCC) Colon cancer screening 09/20/2019 Added automatically from request for surgery [id number] Coronary artery disease Depression 1995 Diabetes mellitus [...] 1979 BLADDER SURGERY N/A Bladder surgery from [facility] BREAST BIOPSY 2011 BREAST SURGERY 2010 BUNIONECTOMY Right CATARACT EXTRACTION Bilateral 2016 CHOLECYSTECTOMY 1979 ESOPHAGOGASTRODUODENOSCOPY HYSTERECTOMY N/A Hysterectomy from [facility] KNEE SURGERY Bilateral ORAL SURGERY N/A Oral surgery from [facility] OTHER SURGICAL HISTORY 2015 ROOT CANAL WISDOM TOOTH EXTRACTION [3] Social History Tobacco Use Smoking status: Never Passive exposure: Never Smokeless tobacco: Never Vaping Use Vaping status: Never Used Substance Use Topics Alcohol use: Not Currently Drug use: Never [4] No Known Allergies [5] Current Facility-Administered Medications: albumin human 25 % infusion 12.5 g, 12.5 g, Intravenous, q15 min PRN, Marianna Gordon N, CONDENSER WINDER albumin human 25 % infusion 87.5 g, [...] tablet 1,000 Units, 1,000 Units, Oral, Daily, Zimmer, Blayne S, DO, 1,000 Units at 07/03/2535 ciprofloxacin (Cipro) tablet 500 mg, 500 mg, Oral, Daily, Blayne Zimmer DO, 500 mg at 07/03/25934 glucose (Glutose) [...] TID, Blayne Zimmer DO, 20 g at 07/03/25933 magnesium oxide (Mag-Ox) tablet 400 mg, 400 mg, Oral, Daily, Blayne Zimmer DO, 400 mg at midodrine (Proamatine) tablet 15 mg, 15 mg, Oral, TID, Dayne Medel, DO, 15 mg at 07/03/25 09 rifAXIMin (Xifaxan) tablet 550 mg, 550 mg, Oral, BID, Blayne Zimmer, DO, 550 mg at 07/03/25 0934 [COMPLETED] [...] Description 08/26/2025 1:00 PM EDT Office Visit [facility] Endocrinology [address] [place] [phone] Miranda Hobson APRN [address] [facility] [address] [place] [address] 08/29/2025 10:00 AM EDT Appointment [facility] Interventional Radiology [address] [place] [address] 08/29/2025 11:00 AM EDT Appointment [facility] Interventional Radiology [address] [place] [address] 09/03/2025 8:40 AM EDT Office Visit [facility] [address] [facility], [address] [place] [address] Lillie Pirtchard MD [address] [place] [address] 09/05/2025 10:00 AM EDT Appointment [facility] Interventional Radiology [address] [place] [address] 09/05/2025 11:00 AM EDT Appointment [facility] Interventional Radiology [address] [place] [address] 09/17/2025 9:45 AM EDT Clinical Support [facility] [address] [place] [phone] 09/17/2025 10:30 AM EDT Social Work [facility] [address] [place] [phone] Lea Reilly, MANU[place] [address] 09/17/2025 11:20 AM EDT Office Visit [facility] [address] [address] Octavia Herrera, PA [address] [place] [phone] documented as of this encounter Procedures Procedure [...] on 07/18/2025 12:56 PM us Shaniqua Mccurdy CONDENSER WINDER IMG XR PROCEDURES Final Resu lt * [...] complicated by ascites and hepatic hydrothorax. TECHNIQUE: Security System Engineer: Shaniqua Mccurdy APRN Secondary Thrasher Feeder: None. Rad Dose: NA Medications: Continuous physiologic [...] cirrhosis complicated by ascites andhepatic hydrothorax. TECHNIQUE: Security System Engineer: Shaniqua Mccurdy APRN Secondary Thrasher Feeder: None. Rad Dose: NA Medications: Continuous physiologic [...] on 07/18/2025 2:18 PM us Marianna Gordon CONDENSER WINDER IMG US PROCEDURES Final Resu lt * [...] by ascites and recurrent hepatic hydrothorax. TECHNIQUE: Security System Engineer: Shaniqua Mccurdy APRN Secondary Thrasher Feeder: None. Rad Dose: NA Medications: Continuous physiologic [...] complicated by ascites andrecurrent hepatic hydrothorax. TECHNIQUE: Security System Engineer: Shaniqua Mccurdy APRN Secondary Thrasher Feeder: None. Rad Dose: NA Medications: Continuous physiologic [...] LAB HEMATOLOGY METHOD 07/19/2025 12:51 PM EDT [facility] Specimen Source, Body Fluid Peritoneal Fluid LAB HEMATOLOGY METHOD 07/19/2025 12:51 PM EDT [facility] Clinical Diagnosis, Body Fluid Ascites LAB HEMATOLOGY METHOD 07/19/2025 12:51 PM EDT [facility] Interpretation , Body Fluid No evidence of malignancy Predominantly chronic inflammatory cells Light blood A resident was involved in the service. I attest I examined the relevant preparations for the specimens and confirmed the diagnosis or interpretation. 07/19/2025 12:51 PM EDT [facility] Pathologist Signature, Body Fluid 07/19/2025 12:51 PM EDT [facility] Comment:Reviewed by: Kadie dobbs MD LAB CP ASR DISCLAIMER Yes 07/19/2025 12:51 PM EDT [facility] Body Fluid Peritoneal fluid / Unknown Non-blood Collection / Unknown 07/18/2025 10:23 AM EDT 07/18/2025 12:01 PM EDT us Shaniqua Mccurdy APRN LAB BODY FLUIDS AND STOOLS O RDERABLES Final Result [facility] [address] [place] [address] * Glucose - Ascites (07/18/2025 10:23 AM EDT) Glucose, Fluid 197 mg/dL 07/18/2025 1:43 PM EDT [facility] Peritoneal Fluid Peritoneal cavity structure / Unknown Non-blood Collection / Unknown 07/18/2025 10:23 AM EDT 07/18/2025 12:01 PM EDT Narrative [facility] - 07/18/2025 1:43 PM EDT Peritoneal/Ascites [...] Glucose < 50 mg/dL. us Shaniqua Mccurdy APRN LAB BODY FLUIDS AND STOOLS O RDERABLES Final Result Performing Organization Address [facility] Co de Phone Number [facility] [address] [place] [address] * Protein - Ascites (07/18/2025 10:23 AM EDT) Total Protein, Fluid 1.3 g/dL 07/18/2025 1:43 PM EDT [facility] Peritoneal Fluid Peritoneal cavity structure / Unknown Non-blood Collection / Unknown 07/18/2025 10:23 AM EDT 07/18/2025 12:01 PM EDT Narrative [facility] - 07/18/2025 1:43 PM EDT This test was developed and its performance characteristics determined by [facility] [employer] [facility]. The U.S. Food and Drug Administration has not approved or cleared this test. However, FDA clearance or approval is not currently required for clinical use. The results are not intended to be used as the sole means for clinical diagnosis or patient management decisions. Shaniqua Mccurdy APRN LAB BODY FLUIDS AND STOOLS O RDERABLES Final Result Performing Organization Address [facility] Co de Phone Number [facility] [address] [place] [address] * (ABNORMAL) Body Fluid Cell Count With Diff - Ascites (07/18/2025 10:23 AM EDT) Color, Body fluid Yellow LAB HEMATOLOGY METHOD 07/18/2025 4:15 PM EDT [facility] Appearance, Body fluid Cloudy(A) LAB HEMATOLOGY METHOD 07/18/2025 4:15 PM EDT [facility] Volume, Body fluid 8.0 cc LAB HEMATOLOGY METHOD 07/18/2025 4:15 PM EDT [facility] Fluid Container Tube 2 LAB HEMATOLOGY METHOD 07/18/2025 4:15 PM EDT [facility] Red Blood Cell Count, Body fluid 7,000 uL LAB HEMATOLOGY METHOD 07/18/2025 4:15 PM EDT [facility] Total Nucleated Cell Count, Body fluid 175 uL LAB HEMATOLOGY METHOD 07/18/2025 4:15 PM EDT [facility] Neutrophils %, Body fluid 3 % LAB HEMATOLOGY METHOD 07/18/2025 4:15 PM EDT [facility] Lymphocytes %, Body fluid 72 % LAB HEMATOLOGY METHOD 07/18/2025 4:15 PM EDT [facility] Monocytes/Macro phages %, Body fluid 22 % LAB HEMATOLOGY METHOD 07/18/2025 4:15 PM EDT [facility] Eosinophils %, Body fluid 0 % LAB HEMATOLOGY METHOD 07/18/2025 4:15 PM EDT [facility] Lining/Mesothel ial Cells %, Body fluid 3 % LAB HEMATOLOGY METHOD 07/18/2025 4:15 PM EDT [facility] Neutrophils Absolute (PMN), Body fluid 5 uL LAB HEMATOLOGY METHOD 07/18/2025 4:15 PM EDT [facility] Lymphocytes Absolute, Body fluid 126 uL LAB HEMATOLOGY METHOD 07/18/2025 4:15 PM EDT [facility] Monocytes/Macro phages Absolute, Body fluid 39 uL LAB HEMATOLOGY METHOD 07/18/2025 4:15 PM EDT [facility] Eosinophils Absolute, Body fluid 0 uL LAB HEMATOLOGY METHOD 07/18/2025 4:15 PM EDT [facility] Basophils Absolute, Body fluid 0 uL LAB HEMATOLOGY METHOD 07/18/2025 4:15 PM EDT [facility] Lining/Mesothel ial Cells Absolute, Body fluid 5 uL LAB HEMATOLOGY METHOD 07/18/2025 4:15 PM EDT [facility] Basophils %, Body fluid 0 % LAB HEMATOLOGY METHOD 07/18/2025 4:15 PM EDT [facility] Body Fluid Peritoneal fluid / Unknown Non-blood Collection / Unknown 07/18/2025 10:23 AM EDT 07/18/2025 12:01 PM EDT us Shaniqua Mccurdy CONDENSER WINDER LAB BODY FLUIDS AND STOOLS ORDERABLES NO SPECIMEN TYPE/SOURCE Final Result [facility] [address] [place] [address] documented in this encounter Visit Diagnoses Diagnosis [...] as of this encounter Care Teams Manager Life Relationship Specialty Start Date End Date Alvarez Zimmer MD [address] [place] [phone] PCP - General Family Medicine 12/07/24 Lea Fernando [address] [place] [phone] Team Otr Truck Driver Endocrinology 08/29/24 Rachel Ray, CONDENSER WINDER [address] [place] [address] Nurse Practitioner Gastroenterology 09/24/24 Tamera Isabel LPN VALUE-BASED TRANSFORMATION PROGRAM Licensed Practical Nurse 05/29/25 Monique Tapia LPN VALUE-BASED [place] [address] TCM Nurse 07/10/25 08/09/25 documented as of this encounter
--- OUTSIDE RECORDS SUMMARY | 2025-07-18 12:08 | XMS_ITS | Encounter Summary ---
Author Organization [facility] Address [address] [place] [address] Care Team Providers Care Colored Leather Setter Name Role Phone Lea Fernando Unavailable [phone] Rachel Ray SPORTS OFFICIAL Unavailable [phone] Alvarez Zimmer MD Primary Care Provider [phone] Tamera Isabel BAIL AGENT Unavailable Unavailabl Monique Garay BAIL AGENT Unavailable Unavailable Encounter Details Date Type Department Care Team (Latest Contact Info) Description 07/18/2025 12:08 PM EDT - 07/18/2025 11:59 PM EDT Hospital Encounter [facility] Radiology [address] [place] [address] Discharge Disposition: Home or Self Care Social [...] often do you attend [facility] or hindu services? Patient unable to answer 01/10/2025 Do you belong to any clubs o r organizations such as restoration groups, unions, [employer] or athletic groups, or school groups? Patient [...] more drinks on one occasion? Never 06/25/2025 [facility] - Occupational Stress Questionnaire Answer Date [...] any time in the past 12 m [facility], were you homeless or living in a residential (including now)? No 06/26/2025 CAGE ASSESSMENT Answer [...] drink first t kennedy in the morning (EYE-CONE MACHINE FEEDER) to steady your nerves or to get rid of a hangover? 0 06/25/2025 CAGE Questionnaire Score 0 025 Utilities Answer Date Recorded In the past 12 months has th e [employer], gas, oil, or water [employer] threatened to shut off services in your [...] Jerri Samayoa 6. Suicidal Behavior (Lifetime) No 5 9:58 AM TAMMYT Stu Samayoa documented as of this encounter Medications at [...] 1 03/01/2025 ergocalciferol (Vitamin D-2) 1.25 MG (48005 UT) capsuleIndication s:Vitamin D deficiency Take 1 [...] Description 08/26/2025 1:00 PM EDT Office Visit [facility] Endocrinology [address] [place] [address] Miranda Hobson, SPORTS OFFICIAL [address] [place] [address] 08/29/2025 10:00 AM EDT Appointment [facility] Interventional Radiology [address] [place] [address] 08/29/2025 11:00 AM EDT Appointment [facility] Interventional Radiology [address] [place] [address] 09/03/2025 8:40 AM EDT Office Visit [facility] [address] [place] [address] Lillie Pritchard MD [address] [place] [address] 09/05/2025 10:00 AM EDT Appointment [facility] Interventional Radiology [address] [place] [address] 09/05/2025 11:00 AM EDT Appointment [facility] Interventional Radiology [address] [place] [address] 09/17/2025 9:45 AM EDT Clinical Support [facility] [address] [place] [address] 09/17/2025 10:30 AM EDT Social Work [facility] [address] [place] [address] Lea Reilly, [place] [address] 09/17/2025 11:20 AM EDT Office Visit [facility] [place] [address] [place] [address] Octavia Herrera, PA [address] [place] [address] documented as of this encounter Procedures Procedure Name Priority Date/Time Associated Diagnosis Comments XR CHEST 1 VIEW STAT 07/18/2025 12:52 PM EDT documented in this encounter Results [...] Bari Aguillon MD on 07/18/2025 12:56 PM Shaniqua Mccurdy SPORTS OFFICIAL IMG XR PROCEDURES Final Resu lt documented [...] documented as of this encounter Care Teams Colored Leather Setter Relationship Specialty Start Date End Date Alvarez Zimmer MD [address] [place] [address] PCP - General Family Medicine 12/07/24 Lea Fernando [address] [place] [address] Fish House Worker Endocrinology 08/29/24 Rachel Ray APRN [address] [place] [address] Nurse Practitioner Gastroenterology 09/24/24 Tamera Isabel LPN VALUE-BASED TRANSFORMATION PROGRAM Licensed Practical Nurse 05/29/25 Monique Tapia LPN VALUE-BASED [place] [address] TCM Nurse 07/10/25 08/09/25 documented as of this encounter
--- OUTSIDE RECORDS SUMMARY | 2025-07-25 08:57 | XMS_ITS | Encounter Summary ---
Author Organization [facility] Address [address] [place] [address] Care Team Providers Care Wind Turbine Installer Name Role Phone Lea Fernando Unavailable [phone] Rachel Ray BOROUGH COORDINATOR Unavailable [phone] Alvarez Zimmer MD Primary Care Provider Tamera Isabel PHARMACOLOGIST Unavailable Unavailabl Monique Garay PHARMACOLOGIST Unavailable Unavailable Reason for Referral * Imaging (Routine) - Closed Specialty Diagnoses / Procedures Referred By Contac t Referred To Contact Radiology Diagnoses Other ascites Procedures US Guided Abdominal Paracentesis Marianna Gordon APRN [address] [place] [address] Phone: tel: fax: Referral ID Status Reason Start Date Expiration Date Visits Re quested Visits Authorized [id number] Closed 06/14/2025 12/14/2026 1 1 * Imaging (Routine) - Closed Specialty Diagnoses / Procedures Referred By Contac t Referred To Contact Radiology Diagnoses Shortness of breath Pleural effusion Procedures US Guided Thoracentesis Marianna Gordon APRN [address] [place] [address] Phone: tel: fax: Referral ID Status Reason Start Date Expiration Date Visits Re quested Visits Authorized [id number] Closed 06/14/2025 12/14/2026 1 1 * Clinic-Administered Medication (Routine) - Closed Specialty Diagnoses / Procedures Referred By Eder zhu Referred To Contact Diagnoses Other ascites Procedures NC ABDOM PARACENTESIS DX/THER W IMAGING GUIDANCE Marianna Gordon APRN [address] [place] [address] Phone: tel: fax: [facility] [address] [place] [address] Phone: tel: fax: Referral ID Status Reason Start Date Expiration Date Visits Re quested Visits Authorized [id number] Closed 07/25/2025 01/24/2027 1 1 Reason for Visit * Imaging (Routine) - Closed Specialty Diagnoses / Procedures Referred By Eder zhu Referred To Contact Radiology Diagnoses Shortness of breath Pleural effusion Procedures US Guided Thoracentesis Marianna Gordon APRN [address] [place] [address] Phone: tel: fax: Referral ID Status Reason Start Date Expiration Date Visits Re quested Visits Authorized [id number] Closed 06/14/2025 12/14/2026 1 1 Encounter Details Date Type Department Care Team (Late st Contact Info) Description 07/25/2025 8:57 AM EDT - 07/25/2025 1:19 PM EDT Hospital Encounter [facility] Interventional Radiology [address] [place] [address] Kandice Silva, RN [facility]-VASCULAR & INTERVENTIONAL RADIOLOGY [...] 01/10/2025 How often do you attend [facility] or yazidi services? Patient unable to answer [...] you attend [facility]ur ch or yazidi services? Never 05/29/2025 Do you belong to [...] more drinks on one occasion? Never [facility]/25/2025 [facility]ational Stress Questionnaire [...] first t kennedy in the morning (EYE-MEDICAL EDUCATOR) to steady your nerves or to [...] call: Vascular and Interventional Radiology Clinic at [phone] Tuesday - Tuesday 8:00 AM to 4:30 PM After hours, weekends, and holidays please call [phone] and ask for the Interventional Radiology provider/Resident on-call Intervention Radiology Appointments: If you need to reschedule a procedure, please call our Schedulers at [phone], option 4. If you need to schedule or reschedule a clinic appointment, please call [phone]. [facility] [address] [place] [address] documented in this encounter Medications at Time [...] 1 03/01/2025 ergocalciferol (Vitamin D-2) 1.25 MG (74672 UT) capsuleIndication s:Vitamin D deficiency Take 1 capsule by mouth 1 time per week. 4 capsule 06/27/2025 insulin glargine-yfgn 100 UNIT/ML injection vial Inject [...] from the original note were not included. [id number] Discharge Instructions for Thoracentesis Thoracentesis is a [...] blood. Last Reviewed Date: 2025 00:00:00 ?? [id number] [employer]. All rights reserved. This information is not intended as a substitute for professional medical care. Always follow your healthcare professional's instructions. * John ZendejasTHEO - Kandice Silva RN - 07/25/2025 12:55 PM EDT Images from the original note were not included. 10104 Discharge Instructions for Paracentesis Paracentesis is a [...] fainting. Last Reviewed Date: 2025 00:00:00 ?? [phone] [employer]. All rights reserved. This information is not intended as a substitute for professional medical care. Always follow your healthcare professional's instructions. * Post-Procedure Note - Fabiana Renee APRN, DNP - 07/25/2025 10:30 AM EDT Vascular and Interventional Radiology Brief Postprocedure Note Performed by: Fabiana Renee APRN Specialist Physician: Maria Dolores Ontiveros APRN Pre-operative Diagnosis: ascites [...] - Any questions with scheduling please call [phone] - Please place orders for desired fluid studies to be sent for analysis prior to procedure Thank you for allowing us to participate in the care of this patient. Micheal Glasgow, BOROUGH COORDINATOR, DNP Interventional Radiology [phone] [1] Past Medical History: Diagnosis Date ADHD (attention deficit hyperactivity disorder) Allergic Anxiety disorder, unspecified Anxiety Bleeding gums Blood in urine Cataract Chronic kidney disease Cirrhosis (CMS/HCC) Colon cancer screening 09/20/2019 Added automatically from request for surgery [id number] Coronary artery disease Depression 1995 Diabetes mellitus [...] 1979 BLADDER SURGERY N/A Bladder surgery from [facility] BREAST BIOPSY 2011 BREAST SURGERY 2010 BUNIONECTOMY Right CATARACT EXTRACTION Bilateral 2016 CHOLECYSTECTOMY 1979 ESOPHAGOGASTRODUODENOSCOPY HYSTERECTOMY N/A Hysterectomy from [facility] KNEE SURGERY Bilateral ORAL SURGERY N/A Oral surgery from [facility] OTHER SURGICAL HISTORY 2015 ROOT CANAL WISDOM TOOTH EXTRACTION [3] Social History Tobacco Use Smoking status: Never Passive exposure: Never Smokeless tobacco: Never Vaping Use Vaping status: Never Used Substance Use Topics Alcohol use: Not Currently Drug use: Never [4] No Known Allergies [5] Current Facility-Administered Medications: albumin human 25 % infusion 12.5 g, 12.5 g, Intravenous, q15 min PRN, Marianna Gordon N, BOROUGH COORDINATOR albumin human 25 % infusion 87.5 g, [...] Daily, Blayne Zimmer, , 10 mg at 07/03/2535 cholecalciferol (Vitamin D-3) tablet 1,000 Units, 1,000 Units, Oral, Daily, Blayne Zimmer DO, 1,000 Units at 07/03/25934 ciprofloxacin (Cipro) tablet 500 mg, 500 mg, Oral, Daily, Blayne Zimmer, , 500 mg at 07/03/2535 glucose (Glutose) 40 % oral gel 15-30 [...] tablet 550 mg, 550 mg, Oral, BID, Goran, Blayne S, DO, 550 mg at 07/03/25 0934 [...] Description 08/26/2025 1:00 PM EDT Office Visit [facility] Endocrinology [address] [place] [address] Miranda Hobson APRN [address] [place] [address] 08/29/2025 10:00 AM EDT Appointment [facility] Inter[facility] Radiology [address] [place] [address] 08/29/2025 11:00 AM EDT Appointment [facility] Interventional Radiology [address] [place] [address] 09/03/2025 8:40 AM EDT Office Visit [facility] [address] [place] [address] Lillie Pritchard MD [address] [place] [address] 09/05/2025 10:00 AM EDT Appointment [facility] Interventional Radiology [address] [place] [address] 09/05/2025 11:00 AM EDT Appointment [facility] Interventional Radiology [address] [place] [address] 09/17/2025 9:45 AM EDT Clinical Support [facility] [place] [address] [place] [address] 09/17/2025 10:30 AM EDT Social Work [facility] [place] [address] [place] [address] Lea Reilly, [place] [address] 09/17/2025 11:20 AM EDT Office Visit [facility] [place] [address] [place] [address] Octavia Herrera, MARIA GUADALUPE [address] [place] [address] documented as of this encounter Procedures Procedure [...] - 99 mg/dL 07/25/2025 2:24 PM EDT [facility] Comment:Accuracy of a [...] for testing. Comment 07/25/2025 2:24 PM EDT [facility] Leave Specialist ID Kandice Silva 07/25/20 25 2:24 PM EDT [facility] Device ID [id number] 07/25/2025 2:24 PM EDT [facility] Specimen Type POC Capillary 07/25/2025 2:24 PM EDT [facility] Blood Capillary blood specimen / Unknown 07/25/2025 2:23 PM EDT 07/25/2025 2:24 PM EDT us aKndice Silva SPOT WELDER LINE POINT OF CARE TE ST DOCKED DEVICE UNSOLICITED RESULTS Final Result Performing Organization Address City/State/[facility] Co de Phone Number [facility] [address] [place] [phone] * XR Chest 1 View (07/25/2025 1:46 [...] cirrhosis with ascites and hepatic hydrothorax. TECHNIQUE: Draw String Knotter: Fabiana Renee Secondary Leave Specialist: Maria Dolores Ontiveros APRN. Rad Dose: NA [...] cirrhosis with ascites and hepatic hydrothorax. TECHNIQUE: Draw String Knotter: Fabiana Renee Secondary Leave Specialist: Maria Dolores Ontiveros APRN. Rad Dose: NA [...] by ascites and intermittent hepatic hydrothorax. TECHNIQUE: Draw String Knotter: Maria Dolores Ontiveros APRN Secondary Leave Specialist: None. Rad Dose: NA Medications: Continuous physiologic [...] complicated by ascites and intermittenthepatic hydrothorax. TECHNIQUE: Draw String Knotter: Maria Dolores Ontiveros APRN Secondary Leave Specialist: None. Rad Dose: NA Medications: Continuous physiologic [...] MD on 07/26/2025 8:50 AM us Marianna N Cheeks BOROUGH COORDINATOR IMG US PROCEDURES Final Resu lt * Body fluid, cytospin, pathologist interpretation (07/25/2025 11:52 AM EDT) Specimen Type Body Fluid LAB HEMATOLOGY METHOD 07/26/2025 9:43 AM EDT [facility] Specimen Source, Body Fluid Peritoneal Fluid LAB HEMATOLOGY METHOD 07/26/2025 9:43 AM EDT [facility] Clinical Diagnosis, Body Fluid Ascites LAB HEMATOLOGY METHOD 07/26/2025 9:43 AM EDT [facility] Interpretation , Body Fluid No evidence of malignancy. Predominantly chronic inflammatory cells and reactive mesothelial cells. Light blood. 07/26/2025 9:43 AM EDT [facility] Pathologist Signature, Body Fluid 07/26/2025 9:43 AM EDT [facility] Comment:Reviewed by: Onur Roque MD LAB CP ASR DISCLAIMER No 07/26/2025 9:43 AM EDT [facility] Body Fluid Peritoneal fluid / Unknown Non-blood Collection / Unknown 07/25/2025 11:52 AM EDT 07/25/2025 2:26 PM EDT us Marianna Dixon Gordon BOROUGH COORDINATOR LAB BODY FLUIDS AND STOOLS O RDERABLES Final Result [facility] [address] [place] [address] * Protein - Ascites (07/25/2025 11:52 AM EDT) Total Protein, Fluid 0.9 g/dL 07/25/2025 5:00 PM EDT [facility] Ascites Peritoneal cavity structure / Unknown 07/25/2025 11:52 AM EDT 07/25/2025 2:26 PM EDT Narrative [facility] - 07/25/2025 5:00 PM EDT This test was developed and its performance characteristics determined by [facility]. The U.S. Food and Drug Administration has not approved or cleared this test. However, FDA clearance or approval is not currently required for clinical use. The results are not intended to be used as the sole means for clinical diagnosis or patient management decisions. us Marianna N Cheeks BOROUGH COORDINATOR LAB BODY FLUIDS AND STOOLS O RDERABLES Final Result [facility] [address] [place] [address] * (ABNORMAL) Body Fluid Cell Count With Diff - Ascites (07/25/2025 11:52 AM EDT) Color, Body fluid [place] LAB HEMATOLOGY METHOD 07/25/2025 4:56 PM EDT [facility] Appearance, Body fluid Cloudy(A) LAB HEMATOLOGY METHOD 07/25/2025 4:56 PM EDT [facility] Volume, Body fluid 30.0 cc LAB HEMATOLOGY METHOD 07/25/2025 4:56 PM EDT [facility] Fluid Container Specimen received in miscellaneous container LAB HEMATOLOGY METHOD 07/25/2025 4:56 PM EDT [facility] Red Blood Cell Count, Body fluid 4,000 uL LAB HEMATOLOGY METHOD 07/25/2025 4:56 PM EDT [facility] Total Nucleated Cell Count, Body fluid 158 uL LAB HEMATOLOGY METHOD 07/25/2025 4:56 PM EDT [facility] Neutrophils %, Body fluid 11 % LAB HEMATOLOGY METHOD 07/25/2025 4:56 PM EDT [facility] Lymphocytes %, Body fluid 54 % LAB HEMATOLOGY METHOD 07/25/2025 4:56 PM EDT [facility] Monocytes/Macr ophages %, Body fluid 27 % LAB HEMATOLOGY METHOD 07/25/2025 4:56 PM EDT [facility] Eosinophils %, Body fluid 0 % LAB HEMATOLOGY METHOD 07/25/2025 4:56 PM EDT [facility] Lining/[place] lial Cells %, Body fluid 8 % LAB HEMATOLOGY METHOD 07/25/2025 4:56 PM EDT [facility] Neutrophils Absolute (PMN), Body fluid 17 uL LAB HEMATOLOGY METHOD 07/25/2025 4:56 PM EDT [facility] Lymphocytes Absolute, Body fluid 85 uL LAB HEMATOLOGY METHOD 07/25/2025 4:56 PM EDT [facility] Monocytes/Macr ophages Absolute, Body fluid 43 uL LAB HEMATOLOGY METHOD 07/25/2025 4:56 PM EDT [facility] Eosinophils Absolute, Body fluid 0 uL LAB HEMATOLOGY METHOD 07/25/2025 4:56 PM EDT [facility] Basophils Absolute, Body fluid 0 uL LAB HEMATOLOGY METHOD 07/25/2025 4:56 PM EDT [facility] Lining/[place] lial Cells Absolute, Body fluid 13 uL LAB HEMATOLOGY METHOD 07/25/2025 4:56 PM EDT [facility] Basophils %, Body fluid 0 % LAB HEMATOLOGY METHOD 07/25/2025 4:56 PM EDT [facility] Body Fluid Peritoneal fluid / Unknown Non-blood Collection / Unknown 07/25/2025 11:52 AM EDT 07/25/2025 2:26 PM EDT Marianna N Evan BOROUGH COORDINATOR LAB BODY FLUIDS AND STOOLS ORDERABLES NO SPECIMEN TYPE/SOURCE Final Result [facility] [address] [place] [address] documented in this encounter Visit Diagnoses Diagnosis [...] documented as of this encounter Care Teams Wind Turbine Installer Relationship Specialty Start Date End Date Alvarez Zimmer MD [address] [place] [address] PCP - General Family Medicine 12/07/24 Lea Fernando [address] [place] [address] [employer] Consultant Endocrinology 08/29/24 Rachel Ray APRN [address] [facility] [address] [place] [id number] Nurse Practitioner Gastroenterology 09/24/24 Tamera Isabel LPN VALUE-BASED TRANSFORMATION PROGRAM Licensed Practical Nurse 05/29/25 Monique Tapia LPN [employer]ED [place] [address] TCM Nurse 07/10/25 08/09/25 documented as of this encounter
--- OUTSIDE RECORDS SUMMARY | 2025-07-25 13:20 | XMS_ITS | Encounter Summary ---
Author Organization [facility] Address [address] [place] [address] Care Team Providers Care Glue Mounter Operator Name Role Phone Lea Fernando Unavailable [phone] Rachel Ray LEAF FAT SCRAPER Unavailable [phone] Alvarez Zimmer MD Primary Care Provider [phone] Tamera Isabel CONTACT ACID PLANT OPERATOR Unavailable Unavailabl Monique Garay CONTACT ACID PLANT OPERATOR Unavailable Unavailable Encounter Details Date Type Department Care Team (Latest Contact Info) Description 07/25/2025 1:20 PM EDT - 07/25/2025 11:59 PM EDT Hospital Encounter [facility] H Radiology [address] [place] [address] Discharge Disposition: Home or Self Care Social [...] you attend [facility] or christianity services? Patient unable to answer 01/10/2025 Do you belong to any clubs o r organizations such as caodaism groups, unions, [employer] or athletic groups, or school groups? Patient [...] you attend chur ch or christianity services? Never 05/29/2025 Do [...] occasion? Never 06/25/2025 [facility] - Occupational Stress Questionnaire Answer Date [...] time in the past 12 m [facility], were you homeless or living in a long term (including now)? No 06/26/2025 CAGE ASSESSMENT Answer [...] drink first t kennedy in the morning (EYE-BULK RECEIVER) to steady your nerves or to get rid of a hangover? 0 06/25/2025 CAGE Questionnaire Score 0 025 Utilities Answer Date Recorded In the past 12 months has th e [employer], gas, oil, or water [employer] threatened to shut off services in your [...] 1 03/01/2025 ergocalciferol (Vitamin D-2) 1.25 MG (04352 UT) capsuleIndication s:Vitamin D deficiency Take 1 [...] Description 08/26/2025 1:00 PM EDT Office Visit [facility] Endocrinology [address] [place] [address] Miranda Hobson P, LEAF FAT SCRAPER [address] [place] [address] 08/29/2025 10:00 AM EDT Appointment [facility] Interventional Radiology [address] [place] [address] 08/29/2025 11:00 AM EDT Appointment [facility] Interventional Radiology [address] [place] [address] 09/03/2025 8:40 AM EDT Office Visit [facility] [address] [facility] [facility] [place] [address] Lillie Pritchard MD [address] [place] [address] 09/05/2025 10:00 AM EDT Appointment [facility] Radiology [address] [place] [address] 09/05/2025 11:00 AM EDT Appointment [facility] Interventional Radiology [address] [place] [address] 09/17/2025 9:45 AM EDT Clinical Support [facility] [place] [address] [place] [address] 09/17/2025 10:[address] [facility] [place] [address] [place] [address] Lea Reilly, [place] [address] 09/17/2025 11:20 AM EDT Office [facility] [place] [address] [place] [address] Octavia Herrera, PA [address] [facility] [address] [place] [address] documented as of this encounter Procedures Procedure [...] documented as of this encounter Care Teams Glue Mounter Operator Relationship Specialty Start Date End Date Alvarez Zimmer MD [address] [place] [address] PCP - General Family Medicine 12/07/24 Lea Fernando [address] [facility] [address] [place] [phone] Roustabout Pusher Endocrinology 08/29/24 Rachel Ray APRN [address] [facility] [address] [place] [address] Nurse Practitioner Gastroenterology 09/24/24 Tamera Isabel LPN VALUE-BASED TRANSFORMATION PROGRAM Licensed Practical Nurse 05/29/25 Monique Tapia LPN VAL[employer] [address] TCM Nurse 07/10/25 08/09/25 documented as of this encounter
--- OUTSIDE RECORDS SUMMARY | 2025-08-01 08:36 | XMS_ITS | Encounter Summary ---
Author Organization [facility] Address [address] [place] [address] Care Team Providers Care Supervisor Frame Assembly Name Role Phone Lea Fernando Unavailable [phone] Rachel Ray APRN Unavailable [phone] Alvarez Zimmer MD Primary Care Provider [phone] Tamera Isabel STATEMENT CLERKS MANAGER Unavailable Unavailabl Monique Garay STATEMENT CLERKS MANAGER Unavailable Unavailable Reason for Referral * Clinic-Administered Medication (Routine) - Closed Specialty Diagnoses / Procedures Referred By Eder t Referred To Contact Diagnoses Other ascites Procedures IN ABDOM PARACENTESIS DX/THER W IMAGING GUIDANCE Fabiana Renee APRN, DNP [address] [place] [address] Phone: tel: fax: [facility] [address] [place] [address] Phone: tel: fax: Referral ID Status Reason Start Date Expiration Date Visits Re quested Visits Authorized [id number] Closed 08/01/2025 01/31/2027 1 1 * Imaging (Routine) - Closed Specialty Diagnoses / Procedures Referred By Contac t Referred To Contact Radiology Diagnoses Other ascites Procedures US Guided Abdominal Paracentesis Marianna Gordon APRN [address] [place] [address] Phone: tel: fax: Referral ID Status Reason Start Date Expiration Date Visits Re quested Visits Authorized [id number] Closed 07/25/2025 01/24/2027 1 1 Reason for Visit * Imaging (Routine) - Closed Specialty Diagnoses / Procedures Referred By Eder zhu Referred To Contact Radiology Diagnoses Other ascites Procedures US Guided Abdominal Paracentesis Marianna Gordon APRN [address] [place] [address] Phone: tel: fax: Referral ID Status Reason Start Date Expiration Date Visits Re quested Visits Authorized [id number] Closed 07/25/2025 01/24/2027 1 1 Encounter Details Date Type Department Care Team (Late st Contact Info) Description 08/01/2025 8:36 AM EDT - 08/01/2025 12:47 PM EDT Hospital Encounter [facility] Interventional Radiology [address] [place] [address] Pretty Enriquez RN CH-VASCULAR & INTERVENTIONAL RADIOLOGY [...] do you attend [facility] or [facility] services? Patient unable to [...] more drinks on one occasion? Never 06/25/2025 [facility] - Occupational Stress Questionnaire Answer Date [...] drink first t kennedy in the morning (EYE-SPORTS MEDICINE SPECIALIST) to steady your nerves or to get rid of a hangover? 0 06/25/2025 CAGE Questionnaire Score 0 025 Utilities Answer Date Recorded In the past 12 months has th e [employer], gas, oil, or water company threatened to [...] 1 03/01/2025 ergocalciferol (Vitamin D-2) 1.25 MG (25301 UT) capsuleIndication s:Vitamin D deficiency Take 1 [...] of this encounter Miscellaneous Notes * Pretty Meier, RN - 08/01/2025 11:39 AM EDT Images from the original note were not included. [address] Discharge Instructions for Thoracentesis Thoracentesis is a [...] blood. Last Reviewed Date: 2025 00:00:00 ?? [employer]. All rights reserved. This information is not intended as a substitute for professional medical care. Always follow your healthcare professional's instructions. * John Vargas - Pretty Enriquez RN - 08/01/2025 11:39 AM EDT Images from the original note were not included. [address] Paracentesis Your healthcare provider recommends that you [...] are taking. This includes all prescription medicines, lmll-lzi-zvthqwr medicines, street drugs, herbs, vitamins, and other [...] fainting Last Reviewed Date: 2022 00:00:00 ?? 2326-1970 [employer]. All rights reserved. This information is not intended as a substitute for professional medical care. Always follow your healthcare professional's instructions. * Post-Procedure Note - Fabiana Renee APRN, ANGELLA - 08/01/2025 10:00 AM EDT Vascular and Interventional Radiology Brief Postprocedure Note Performed by: Fabiana Renee APRN/ Zaheer Ortiz MD Nba Player: Marianna Gordon APRN Pre-operative Diagnosis: right pleural [...] - Any questions with scheduling please call [phone] - Please place orders for desired fluid studies to be sent for analysis prior to procedure Thank you for allowing us to participate in the care of this patient. Micheal Glasgow, ADRI, DNP Interventional Radiology [phone] [1] Past Medical History: Diagnosis Date ADHD (attention deficit hyperactivity disorder) Allergic Anxiety disorder, unspecified Anxiety Bleeding gums Blood in urine Cataract Chronic kidney disease Cirrhosis (CMS/HCC) Colon cancer screening 09/20/2019 Added automatically from request for surgery [id number] Coronary artery disease Depression 1995 Diabetes mellitus [...] 1979 BLADDER SURGERY N/A Bladder surgery from [facility] BREAST BIOPSY 2011 BREAST SURGERY 2010 BUNIONECTOMY Right CATARACT EXTRACTION Bilateral 2016 CHOLECYSTECTOMY 1980 ESOPHAGOGASTRODUODENOSCOPY HYSTERECTOMY N/A Hysterectomy from [facility] KNEE SURGERY Bilateral ORAL SURGERY N/A Oral surgery from [facility] OTHER SURGICAL HISTORY 2015 ROOT CANAL WISDOM TOOTH EXTRACTION [3] Social History Tobacco Use Smoking status: Never Passive exposure: Never Smokeless tobacco: Never Vaping Use Vaping status: Never Used Substance Use Topics Alcohol use: Not Currently Drug use: Never [4] No Known Allergies [5] Current Facility-Administered Medications: albumin human 25 % infusion 12.5 g, 12.5 g, Intravenous, q15 min PRN, Marianna oGrdon APRN albumin human 25 % infusion 87.5 g, [...] Units, 24 Units, Subcutaneous, Daily, Blayne Zimmer, DO, 24 Units at 07/03/25 0936 insulin lispro (Admelog) 100 units/mL injection - Correction - Resistant Dose, 0-10 Units, Subcutaneous, TID with meals, Blayne Zimmer, DO, 2 Units at 07/02/25 1226 insulin lispro (Admelog) injection - Correction - Nighttime Dose, 0-3 Units, Subcutaneous, Twice atnight, Blayne Zimmer, lactulose (Chronulac) 10 GM/15ML solution 20 g, 20 g, Oral, TID, Blayne Zimmer, DO, 20 g at 07/03/25 0934 magnesium oxide (Mag-Ox) tablet 400 mg, 400 mg, Oral, Daily, Blayne Zimmer, , 400 mg at 111 midodrine (Proamatine) tablet [...] 10 mL, 10 mL, Intravenous, PRN, Blayne Zimmer, DO Insert peripheral IV, , , Once AND Saline lock IV, , , Once AND sodium chloride 0.9 % flush10 mL, 10 mL, Intravenous, q12h, 10 mL at 07/03/25 0015 AND sodium chloride 0.9 % flush 10 mL, 10 mL, Intravenous, PRN, Maria Dolores Ontiveros APRN, ANGELLA documented in this encounter Plan of Treatment Upcoming Encounters Date Type Department Care Team (Late st Contact Info) Description 08/26/2025 1:00 PM EDT Office Visit [facility] Endocrinology [address] [place] [phone] Miranda Hobson, PIE BAKERY LABORER [address] [facility] [address] [place] [address] 08/29/2025 10:00 AM EDT Appointment [facility] Inter[facility] Radiology [address] [place] [address] 08/29/2025 11:00 AM EDT Appointment [facility] Inter[facility] Radiology [address] [place] [address] 09/03/2025 8:40 AM EDT Office Visit [facility]ly [facility] [address], [address] [place] [address] Lillie Pritchard MD [address] [place] [address] 09/05/2025 10:00 AM EDT Appointment [facility] Inter[facility] Radiology [address] [place] [address] 09/05/2025 11:00 AM EDT Appointment [facility] Inter[facility] Radiology [address] [place] [address] 09/17/2025 9:45 AM EDT Clinical Support [facility] [place] [address] [place] [address] 09/17/2025 10:30 AM EDT Social Work [facility] [place] [address] [place] [address] Lea Reilly, [place] [address] 09/17/2025 11:20 AM EDT Office Visit [facility] [place] [address] [place] [address] Octavia Herrera, PA [address] [place] [address] documented as of this encounter Procedures Procedure [...] Jin MD on 08/01/2025 2:12 PM us Fabiana Renee PIE BAKERY LABORER, DNP IMG XR PROCEDURES Tari l Result [...] edited report. Drafted by SOLANGE Omalley on 08/01/2025 [...] to IR, undergoing outpatient paracentesis/thoracentesis weekly TECHNIQUE: Asbestos Abatement Technician: Marianna Landrum APRN Secondary Lockmaker: None. Rad Dose: NA Medications: Continuous physiologic [...] known to IR, undergoing outpatientparacentesis/thoracentesis weekly TECHNIQUE: Asbestos Abatement Technician: Marianna Landrum APRN Secondary Lockmaker: None. Rad Dose: NA Medications: Continuous physiologic [...] on 08/01/2025 5:04 PM us Marianna Gordon PIE BAKERY LABORER IMG US PROCEDURES Final Resu lt * Body fluid, cytospin, pathologist interpretation (08/01/2025 10:44 AM EDT) Specimen Type Body Fluid LAB HEMATOLOGY METHOD 08/02/2025 12:12 PM EDT [facility] Specimen Source, Body Fluid Peritoneal Fluid LAB HEMATOLOGY METHOD 08/02/2025 12:12 PM EDT [facility] Clinical Diagnosis, Body Fluid Ascites LAB HEMATOLOGY METHOD 08/02/2025 12:12 PM EDT [facility] Interpretation , Body Fluid No evidence of malignancy Predominantly chronic inflammatory cells Lymphocytosis Light blood A resident was involved in the service. I attest I examined the relevant preparations for the specimens and confirmed the diagnosis or interpretation. 08/02/2025 12:12 PM EDT [facility] Pathologist Signature, Body Fluid 08/02/2025 12:12 PM EDT [facility] Comment:Reviewed by: Kadie dobbs MD LAB CP ASR DISCLAIMER Yes 08/02/2025 12:12 PM EDT [facility] Body Fluid Peritoneal fluid / Unknown Non-blood Collection / Unknown 08/01/2025 10:44 AM EDT 08/01/2025 12:48 PM EDT Fabiana Renee APRN, ANGELLA LAB BODY FLUIDS AND ST OOLS ORDERABLES Final Result Performing Organization Address City/State/[facility] Co de Phone Number [facility] [address] [place] [address] * Protein - Ascites (08/01/2025 10:44 AM EDT) Total Protein, Fluid 1 g/dL 08/01/2025 3:45 PM EDT [facility] Ascites Peritoneal cavity structure / Unknown 08/01/2025 10:44 AM EDT 08/01/2025 12:48 PM EDT Narrative [facility] - 08/01/2025 3:45 PM EDT This test was developed and its performance characteristics determined by [facility]. The U.S. Food and Drug Administration has not approved or cleared this test. However, FDA clearance or approval is not currently required for clinical use. The results are not intended to be used as the sole means for clinical diagnosis or patient management decisions. Fabiana Renee APRN, ANGELLA LAB BODY FLUIDS AND ST OOLS ORDERABLES Final Result [facility] [address] [place] [address] * (ABNORMAL) Body Fluid Cell Count With Diff - Ascites (08/01/2025 10:44 AM EDT) Color, Body fluid [place] LAB HEMATOLOGY METHOD 08/01/2025 7:44 PM EDT [facility] Appearance, Body fluid Cloudy(A) LAB HEMATOLOGY METHOD 08/01/2025 7:44 PM EDT [facility] Volume, Body fluid 28.0 cc LAB HEMATOLOGY METHOD 08/01/2025 7:44 PM EDT [facility] Fluid Container Specimen received in miscellaneous container LAB HEMATOLOGY METHOD 08/01/2025 7:44 PM EDT [facility] Red Blood Cell Count, Body fluid 5,000 uL LAB HEMATOLOGY METHOD 08/01/2025 7:44 PM EDT [facility] Total Nucleated Cell Count, Body fluid 155 uL LAB HEMATOLOGY METHOD 08/01/2025 7:44 PM EDT [facility] Neutrophils %, Body fluid 2 % LAB HEMATOLOGY METHOD 08/01/2025 7:44 PM EDT [facility] Lymphocytes %, Body fluid 79 % LAB HEMATOLOGY METHOD 08/01/2025 7:44 PM EDT [facility] Monocytes/Macr ophages %, Body fluid 17 % LAB HEMATOLOGY METHOD 08/01/2025 7:44 PM EDT [facility] Eosinophils %, Body fluid 0 % LAB HEMATOLOGY METHOD 08/01/2025 7:44 PM EDT [facility] Lining/Mesothe lial Cells %, Body fluid 2 % LAB HEMATOLOGY METHOD 08/01/2025 7:44 PM EDT [facility] Neutrophils Absolute (PMN), Body fluid 3 uL LAB HEMATOLOGY METHOD 08/01/2025 7:44 PM EDT [facility] Lymphocytes Absolute, Body fluid 122 uL LAB HEMATOLOGY METHOD 08/01/2025 7:44 PM EDT [facility] Monocytes/Macr ophages Absolute, Body fluid 26 uL LAB HEMATOLOGY METHOD 08/01/2025 7:44 PM EDT [facility] Eosinophils Absolute, Body fluid 0 uL LAB HEMATOLOGY METHOD 08/01/2025 7:44 PM EDT [facility] Basophils Absolute, Body fluid 0 uL LAB HEMATOLOGY METHOD 08/01/2025 7:44 PM EDT [facility] Lining/Mesothe lial Cells Absolute, Body fluid 3 uL LAB HEMATOLOGY METHOD 08/01/2025 7:44 PM EDT [facility] Basophils %, Body fluid 0 % LAB HEMATOLOGY METHOD 08/01/2025 7:44 PM EDT [facility] Body Fluid Peritoneal fluid / Unknown Non-blood Collection / Unknown 08/01/2025 10:44 AM EDT 08/01/2025 12:48 PM EDT us Fabiana Renee PIE BAKERY LABORER, DNP LAB BODY FLUID S AND STOOLS ORDERABLES NO SPECIMEN TYPE/SOURCE Final Result [facility] [address] [place] [address] documented in this encounter Visit Diagnoses Diagnosis [...] as of this encounter Care Teams Supervisor Frame Assembly Relationship Specialty Start Date End Date Alvarez Zimmer MD [address] [address] PCP - General Family Medicine 12/07/24 Lea Fernando [address] [facility] [address] [place] [address] Drywall Applicator Endocrinology 08/29/24 Rachel Ray APRN [address] [facility] [address] [place] [phone] Nurse Practitioner Gastroenterology 09/24/24 Tamera Isabel LPN VALUE-BASED TRANSFORMATION PROGRAM Licensed Practical Nurse 05/29/25 Monique Tapia LPN VALUE-[employer]ED [place] [address] TCM Nurse 07/10/25 08/09/25 documented as of this encounter
--- OUTSIDE RECORDS SUMMARY | 2025-08-01 12:48 | XMS_ITS | Encounter Summary ---
Author Organization [facility] Address [address] [place] [address] Care Team Providers Care Worship Leader Name Role Phone Lea Fernando Unavailable [phone] Rachel Ray PHOTO CHECKER AND ASSEMBLER Unavailable [phone] Alvarez Zimmer MD Primary Care Provider [phone] Tamera Isabel SOFTWARE TEST ANALYST Unavailable Unavailabl Monique Garay SOFTWARE TEST ANALYST Unavailable Unavailable Encounter Details Date Type Department Care Team (Latest Contact Info) Description 08/01/2025 12:48 PM EDT - 08/01/2025 11:59 PM EDT Hospital Encounter [facility] Radiology [address] [place] [address] Discharge Disposition: Home or Self Care Social [...] week 01/10/2025 How often do you attend [facility] or baptist services? Patient unable to answer 01/10/2025 Do you belong to any clubs o r organizations such as restorationist groups, unions, [employer] or athletic groups, or school groups? Patient [...] Never 06/25/2025 [facility] - Occupational Stress Questionnaire Answer Date [...] first t kennedy in the morning (EYE-BASIC COMBATANT SWIMMER) to steady your nerves or to get rid of a hangover? 0 06/25/2025 CAGE Questionnaire Score 0 025 Utilities Answer Date Recorded In the past 12 months has th e [employer], gas, oil, or water [employer] threatened to shut off services in your [...] 1 03/01/2025 ergocalciferol (Vitamin D-2) 1.25 MG (74602 UT) capsuleIndication s:Vitamin D deficiency Take 1 [...] Description 08/26/2025 1:00 PM EDT Office Visit [facility] Endocrinology [address] [place] [address] Miranda Hobson P, PHOTO CHECKER AND ASSEMBLER [address] [place] [address] 08/29/2025 10:00 AM EDT Appointment [facility] Inter[facility] [address] [place] [address] 08/29/2025 11:00 AM EDT Appointment [facility] Inter[facility] Radiology [address] [place] [address] 09/03/2025 8:40 AM EDT Office Visit [facility] [address] [facility] [place] [phone] Lillie Pritchard MD [address] [place] [address] 09/05/2025 10:00 AM EDT Appointment [facility] Inter[facility] Radiology [address] [place] [address] 09/05/2025 11:00 AM EDT Appointment [facility] Inter[facility]iology [address] [place] [address] 09/17/2025 9:45 AM EDT Clinical Support [facility] [place] [address] [place] [address] 09/17/2025 10:30 AM EDT Social Work [facility] [place] [address] [place] [address] Lea Reilly, [place] [address] 09/17/2025 11:20 AM EDT Office Visit [facility] [place] [address] [place] [address] Octavia Herrera, PA [address] [facility] [address] [place] [address] documented as of this encounter Procedures Procedure [...] on 08/01/2025 2:12 PM us Fabiana Renee PHOTO CHECKER AND ASSEMBLER, DNP IMG XR PROCEDURES Tari l Result [...] documented as of this encounter Care Teams Worship Leader Relationship Specialty Start Date End Date Alvarez Zimmer MD [address] [place] [address] PCP - General Family Medicine 12/07/24 Lea Fernando [address] [facility] [address] [place] [address] [facility] Endocrinology 08/29/24 Rachel Ray APRN [address] [facility] [address] [place] [address] Nurse Practitioner Gastroenterology 09/24/24 Tamera Isabel LPN VALUE-BASED TRANSFORMATION PROGRAM Licensed Practical Nurse 05/29/25 Monique aTpia LPN VALUE-BASED [place] [address] TCM Nurse 07/10/25 08/09/25 documented as of this encounter
--- OUTSIDE RECORDS SUMMARY | 2025-08-08 08:51 | XMS_ITS | Encounter Summary ---
Author Organization [facility] Address [address] [place] [address] Care Team Providers Care Instrument Lens Inspector Name Role Phone Lea Fernando Unavailable [phone] Rachel Ray DIVISIONAL STOREKEEPER Unavailable [phone] Alvarez Zimmer MD Primary Care Provider [phone] Tamera Isabel METER RECORD CLERK Unavailable Unavailabl Monique Garay METER RECORD CLERK Unavailable Unavailable Reason for Referral * Clinic-Administered Medication (Routine) - Closed Specialty Diagnoses / Procedures Referred By Contac t Referred To Contact Diagnoses Other ascites Procedures ID ABDOM PARACENTESIS DX/THER W IMAGING GUIDANCE Shaniqua Mccurdy APRN [address] [place] [address] Phone: tel: fax: [facility] [address] [place] [address] Phone: tel: fax: Referral ID Status Reason Start Date Expiration Date Visits Re quested Visits Authorized [id number] Closed 08/08/2025 02/07/2027 1 1 * Imaging (Routine) - Closed Specialty Diagnoses / Procedures Referred By Contac t Referred To Contact Radiology Diagnoses Other ascites Procedures US Guided Thoracentesis Marianna Gordon APRN [address] [place] [address] Phone: tel: fax: Referral ID Status Reason Start Date Expiration Date Visits Re quested Visits Authorized [id number] Closed 07/25/2025 01/24/2027 1 1 * Imaging (Routine) - Closed Specialty Diagnoses / Procedures Referred By Eder zhu Referred To Contact Radiology Diagnoses Other ascites Procedures US Guided Abdominal Paracentesis Marianna Gordon APRN [address] [place] [address] Phone: tel: fax: Referral ID Status Reason Start Date Expiration Date Visits Re quested Visits Authorized [id number] Closed 07/25/2025 01/24/2027 1 1 Reason for Visit * Imaging (Routine) - Closed Specialty Diagnoses / Procedures Referred By Eder zhu Referred To Contact Radiology Diagnoses Other ascites Procedures US Guided Abdominal Paracentesis Marianna Gordon APRN [address] [place] [address] Phone: tel: fax: Referral ID Status Reason Start Date Expiration Date Visits Re quested Visits Authorized [id number] Closed 07/25/2025 01/24/2027 1 1 Encounter Details Date Type Department Care Team (Late st Contact Info) Description 08/08/2025 8:51 AM EDT - 08/08/2025 2:26 PM EDT Hospital Encounter [facility] Interventional Radiology [address] [place] [address] Mariam Thomas, RN CH-VASCULAR & INTERVENTIONAL RADIOLOGY [...] you attend [facility] or mandaen services? Patient unable to [...] more drinks on one occasion? Never [facility]2025 [facility] [...] drink first t kennedy in the morning (EYE-COAL EQUIPMENT OPERATOR) to steady your nerves or to get rid of a hangover? 0 06/25/2025 CAGE Questionnaire Score 0 025 Utilities Answer Date Recorded In the past 12 months has th [employer], gas, oil, or water company threatened to [...] call: [facility]ascular and Interventional Radiology Clinic at [phone] Tuesday - Tuesday 8:00 AM to 4:30 PM After hours, weekends, and holidays please call [phone] and ask for the Interventional Radiology provider/Resident on-call Intervention Radiology Appointments: If you need to reschedule a procedure, please call our Schedulers at [phone], option 4. If you need to schedule or reschedule a clinic appointment, please call [phone]. [facility] Vascular and Interventional Radiology Clinic [facility] [address] [place] [address], [address] [place] [address] documented in this encounter Medications at Time [...] 1 03/01/2025 ergocalciferol (Vitamin D-2) 1.25 MG (02410 UT) capsuleIndication s:Vitamin D deficiency Take 1 [...] EDT Pt received from intraprocedure RN to [facility]25; handoff report obtained; Pt placed on [...] is no recent study available for direct dxgg-li-futv comparison. Assessment & Plan: Decompensated cirrhosis, MASH [...] the care of this patient. Shaniqua Mccurdy, DARI Interventional Radiology [phone] [1] Past Medical History: Diagnosis Date ADHD (attention deficit hyperactivity disorder) Allergic Anxiety disorder, unspecified Anxiety Bleeding gums Blood in urine Cataract Chronic kidney disease Cirrhosis (CMS/HCC) Colon cancer screening 09/20/2019 Added automatically from request for surgery [id number] Coronary artery disease Depression 1996 Diabetes mellitus [...] 1979 BLADDER SURGERY N/A Bladder surgery from [facility] BREAST BIOPSY 2011 BREAST SURGERY 2010 BUNIONECTOMY Right CATARACT EXTRACTION Bilateral 2016 CHOLECYSTECTOMY 1979 ESOPHAGOGASTRODUODENOSCOPY HYSTERECTOMY N/A Hysterectomy from [facility] KNEE SURGERY Bilateral ORAL SURGERY N/A Oral surgery from [facility] OTHER SURGICAL HISTORY 2014 ROOT CANAL WISDOM [...] Rfl: 1 ergocalciferol (Vitamin D-2) 1.25 MG (36964 UT) capsule, Take 1 capsule by mouth [...] from the original note were not included. [id number] Discharge Instructions for Thoracentesis Thoracentesis is a [...] blood. Last Reviewed Date: 2025 00:00:00 ?? [id number] [employer]. All rights reserved. This information is not intended as a substitute for professional medical care. Always follow your healthcare professional's instructions. * [facility] - Mariam Thomas RN - 08/08/2025 10:24 AM EDT Images from the original note were not included. [id number] Discharge Instructions for Paracentesis Paracentesis is a [...] fainting. Last Reviewed Date: 2025 00:00:00 ?? [id number] [employer]. All rights reserved. This information is not intended as a substitute for professional medical care. Always follow your healthcare professional's instructions. documented in this encounter Plan of Treatment Upcoming Encounters Date Type Department Care Team (Late st Contact Info) Description 08/26/2025 1:00 PM EDT Office Visit [facility] Endocrinology [address] [place] [address] Miranda Hobson, DIVISIONAL STOREKEEPER [address] [facility] [address] [place] [address] 08/29/2025 10:00 AM EDT Appointment [facility] Interventional Radiology [address] [place] [address] 08/29/2025 11:00 AM EDT Appointment [facility] Interventional Radiology [address] [place] [address] 09/03/2025 8:40 AM EDT Office Visit [facility] [address], [address] [place] [address] Lillie Pritchard MD [address] [place] [id number] 09/05/2025 10:00 AM EDT Appointment [facility] Interventional Radiology [address] [place] [address] 09/05/2025 11:00 AM EDT Appointment [facility] Interventional Radiology [address] [place] [address] 09/17/2025 9:45 AM EDT Clinical Support [facility] [place] [address] [address] 09/17/2025 10:30 AM EDT Social Work [facility] [place] [address] [address] Lea Reilly, [place], [place] [phone]- 09/17/2025 11:20 AM EDT Office Visit [facility] [address] [place] [address] Octavia Herrera PA [address] [place] [address] documented as of this encounter Procedures Procedure [...] MD on 08/08/2025 3:10 PM Shaniqua Mccurdy DIVISIONAL STOREKEEPER IMG XR PROCEDURES Final Resu lt * (ABNORMAL) POCT glucose meter (08/08/2025 1:42 PM EDT) POCT Glucose 294(H) 74 - 99 mg/dL 08/08/2025 1:44 PM EDT [facility] Comment:Accuracy of a glucos e result [...] 08/08/2025 1:44 PM EDT [facility] Tinning Machine Set Up Operator ID Mariam Thomas 08/08/2025 1:44 PM EDT [facility] Device ID [id number] 08/08/2025 1:44 PM EDT [facility] Specimen Type POC Capillary 08/08/2025 1:44 PM EDT [facility] Blood Capillary blood specimen / Unknown 08/08/2025 1:42 PM EDT 08/08/2025 1:44 PM EDT Mariam Thomas RN LAB POINT OF CARE T EST DOCKED DEVICE UNSOLICITED RESULTS Final Result [facility] [address] [place] [address] * US Guided Thoracentesis (08/08/2025 12:19 PM [...] cirrhosis with ascites and hepatic hydrothorax. TECHNIQUE: Directory Carrier: Shaniqua Mccurdy APRN Secondary Tinning Machine Set Up Operator: None. Rad Dose: NA Medications: Continuous physiologic monitoring provided by a qualified healthcare professional. Administered: 1% Lidocaine SQ. Antibiotics: NA Time out: 8 Procedure: After discussion of risks and benefits, [...] decompensated cirrhosis with ascites and hepatichydrothorax. TECHNIQUE: Directory Carrier: Shaniqua Mccurdy APRN Secondary Tinning Machine Set Up Operator: Aparna. Rad Dose: NA Medications: Continuous [...] on 08/08/2025 1:58 PM us Marianna Gordon DIVISIONAL STOREKEEPER IMG US PROCEDURES Final Resu lt * [...] cirrhosis with hepatic hydrothorax and ascites. TECHNIQUE: Directory Carrier: Shaniqua Mccurdy APRN Secondary Tinning Machine Set Up Operator: None. Rad Dose: NA [...] decompensated cirrhosiswith hepatic hydrothorax and ascites. TECHNIQUE: Directory Carrier: Shaniqua Mccurdy APRN Secondary Tinning Machine Set Up Operator: None. Rad Dose: NA [...] MD on 08/08/2025 1:52 PM us Marianna N Evan DIVISIONAL STOREKEEPER IMG US PROCEDURES Final Resu lt * Body fluid, cytospin, pathologist interpretation (08/08/2025 11:32 AM EDT) Specimen Type Body Fluid LAB HEMATOLOGY METHOD 08/09/2025 5:55 PM EDT [facility] Specimen Source, Body Fluid Peritoneal Fluid LAB HEMATOLOGY METHOD 08/09/2025 5:55 PM EDT [facility] Clinical Diagnosis, Body Fluid Decompensated cirrhosis MASH, Ascites LAB HEMATOLOGY METHOD 08/09/2025 5:55 PM EDT [facility] Interpretation , Body Fluid No evidence of malignancy Chronic inflammatory cells Lymphocytosis Light blood A resident was involved in the service. I attest I examined the relevant preparations for the specimens and confirmed the diagnosis or interpretation. 08/09/2025 5:55 PM EDT [facility] Pathologist Signature, Body Fluid 08/09/2025 5:55 PM EDT [facility] Comment:Reviewed by: Kadie dobbs MD LAB CP ASR DISCLAIMER Yes 08/09/2025 5:55 PM EDT [facility] Body Fluid Peritoneal fluid / Unknown Non-blood Collection / Unknown 08/08/2025 11:32 AM EDT 08/08/2025 2:47 PM EDT Shaniqua Mccurdy DIVISIONAL STOREKEEPER LAB BODY FLUIDS AND STOOLS O RDERABLES Final Result Performing Organization Address [facility] Co de Phone Number [facility] [address] [place] [address] * Glucose - Ascites (08/08/2025 11:32 AM EDT) Glucose, Fluid 317 mg/dL 08/08/2025 3:30 PM EDT [facility] Peritoneal Fluid Peritoneal cavity structure / Unknown Non-blood Collection / Unknown 08/08/2025 11:32 AM EDT 08/08/2025 2:47 PM EDT Narrative [facility] - 08/08/2025 3:30 PM [...] O RDERABLES Final Result Performing Organization Address [facility] de Phone Number [facility] [address] [place] [address] * Protein - Ascites (08/08/2025 11:32 AM EDT) Total Protein, Fluid 0.9 g/dL 08/08/2025 3:30 PM EDT [facility] Peritoneal Fluid Peritoneal cavity structure / Unknown Non-blood Collection / Unknown 08/08/2025 11:32 AM EDT 08/08/2025 2:47 PM EDT Narrative [facility] - 08/08/2025 3:30 PM EDT This test was developed and its performance characteristics determined by [facility]. The U.S. Food and Drug Administration has not approved or cleared this test. However, FDA clearance or approval is not currently required for clinical use. The results are not intended to be used as the sole means for clinical diagnosis or patient management decisions. us Shaniqua Mccurdy DIVISIONAL STOREKEEPER LAB BODY FLUIDS AND STOOLS O RDERABLES Final Result [facility] [address] [place] [address] * (ABNORMAL) Body Fluid Cell Count With Diff - Ascites (08/08/2025 11:32 AM EDT) Color, Body fluid Yellow LAB HEMATOLOGY METHOD 08/08/2025 4:39 PM EDT [facility] Appearance, Body fluid Cloudy(A) LAB HEMATOLOGY METHOD 08/08/2025 4:39 PM EDT [facility] Volume, Body fluid 8.0 cc LAB HEMATOLOGY METHOD 08/08/2025 4:39 PM EDT [facility] Fluid Container Tube 3 LAB HEMATOLOGY METHOD 08/08/2025 4:39 PM EDT [facility] Red Blood Cell Count, Body fluid 4,000 uL LAB HEMATOLOGY METHOD 08/08/2025 4:39 PM EDT [facility] Total Nucleated Cell Count, Body fluid 122 uL LAB HEMATOLOGY METHOD 08/08/2025 4:39 PM EDT [facility] Neutrophils %, Body fluid 2 % LAB HEMATOLOGY METHOD 08/08/2025 4:39 PM EDT [facility] Lymphocytes %, Body fluid 93 % LAB HEMATOLOGY METHOD 08/08/2025 4:39 PM EDT [facility] Monocytes/Macro phages %, Body fluid 5 % LAB HEMATOLOGY METHOD 08/08/2025 4:39 PM EDT [facility] Eosinophils %, Body fluid 0 % LAB HEMATOLOGY METHOD 08/08/2025 4:39 PM EDT [facility] Lining/Mesothel ial Cells %, Body fluid 0 % LAB HEMATOLOGY METHOD 08/08/2025 4:39 PM EDT [facility] Neutrophils Absolute (PMN), Body fluid 2 uL LAB HEMATOLOGY METHOD 08/08/2025 4:39 PM EDT [facility] Lymphocytes Absolute, Body fluid 113 uL LAB HEMATOLOGY METHOD 08/08/2025 4:39 PM EDT [facility] Monocytes/Macro phages Absolute, Body fluid 6 uL LAB HEMATOLOGY METHOD 08/08/2025 4:39 PM EDT [facility] Eosinophils Absolute, Body fluid 0 uL LAB HEMATOLOGY METHOD 08/08/2025 4:39 PM EDT [facility] Basophils Absolute, Body fluid 0 uL LAB HEMATOLOGY METHOD 08/08/2025 4:39 PM EDT [facility] Lining/Mesothel ial Cells Absolute, Body fluid 0 uL LAB HEMATOLOGY METHOD 08/08/2025 4:39 PM EDT [facility] Basophils %, Body fluid 0 % LAB HEMATOLOGY METHOD 08/08/2025 4:39 PM EDT [facility] Body Fluid Peritoneal fluid / Unknown Non-blood Collection / Unknown 08/08/2025 11:32 AM EDT 08/08/2025 2:47 PM EDT Shaniqua Mccurdy DIVISIONAL STOREKEEPER LAB BODY FLUIDS AND STOOLS ORDERABLES NO SPECIMEN TYPE/SOURCE Final Result [facility] [address] [place] [address] documented in this encounter Visit Diagnoses Diagnosis Other ascites documented in this encounter Administered Medications Inactive Administered Medications - up to 3 most recent administrations Medication Order MAR Action Action Date Dose Rate Site albumin human 25 % infusion 37.5 g 37.5 g, Intravenous, Once as needed, 1 dose, Starting on Tue08/08/25 at 0913, Until Tue08/08/25 at 1139, Routine, Intraprocedure, For 5-6.9 L drained New Bag 08/08/2025 11:39 AM EDT 37.5 g lidocaine 0.9% in sodium bicarbonate (buffered lidocaine) solution solution As needed, Starting on Tue08/08/25 at 1129, Until Tue08/08/25 at 1129, Routine, Intraprocedure Given 08/08/2025 11:29 AM EDT 10 mL ondansetron (Zofran) injection 4 mg 4 mg, Intravenous, Every 6 hours PRN, Starting on Tue08/08/25 at 1014, Until Tue08/09/25 at 0239, Routine, [...] of this encounter Care Teams Instrument Lens Inspector Relationship Specialty Start Date End Date Alvarez Zimmer MD [address] [place] [address] PCP - General Family Medicine 12/07/24 Lea Fernando [address] [place] [phone] Rear Load Truck Driver Endocrinology 08/29/24 Rachel Ray, ADRI [address] [place] [address] Nurse Practitioner Gastroenterology 09/24/24 Tamera Isabel LPN VALUE-BASED TRANSFORMATION PROGRAM Licensed Practical Nurse 05/29/25 Monique Tapia LPN VALUE-BASED [place] [address] TCM Nurse 07/10/25 08/09/25 documented as of this encounter
--- OUTSIDE RECORDS SUMMARY | 2025-08-08 14:27 | XMS_ITS | Encounter Summary ---
Author Organization [facility] Address [address] [place] [address] Care Team Providers Care Poultry Tender Name Role Phone Lea Fernando Unavailable [phone] Rachel Rya WELDER FIRST CLASS Unavailable [phone] Alvarez Zimmer MD Primary Care Provider [phone] Tamera Isabel MOLD TECHNICIAN Unavailable Unavailabl Monique Garay MOLD TECHNICIAN Unavailable Unavailable Encounter Details Date Type Department Care Team (Latest Contact Info) Description 08/08/2025 2:27 PM EDT - 08/08/2025 11:59 PM EDT Hospital Encounter [facility] [address] [place] [address] Discharge Disposition: Home or Self Care Social [...] 01/10/2025 How often do you attend [facility] or jew services? Patient unable to answer 01/10/2025 Do you belong to any clubs o r organizations such as amish groups, unions, [employer] or athletic groups, or school groups? Patient [...] more drinks on one occasion? Never 06/25/2025 [facility] - Occupational Stress Questionnaire Answer Date Recorded [...] drink first t kennedy in the morning (EYE-FILM INSPECTOR) to steady your nerves or to get rid of a hangover? 0 06/25/2025 CAGE Questionnaire Score 0 025 Utilities Answer Date Recorded In the past 12 months has th e [employer], gas, oil, or water [employer] threatened to shut off services in your [...] (Past 1 Month) No 08/08/2025 10:00 AM Bay Minaya RN 6. Suicidal Behavior (Lifetime) No 10:00 [...] 1 03/01/2025 ergocalciferol (Vitamin D-2) 1.25 MG (43680 UT) capsuleIndication s:Vitamin D deficiency Take 1 [...] Description 08/26/2025 1:00 PM EDT Office Visit [facility] Endocrinology [address] [place] [address] Miranda Hobson, WELDER FIRST CLASS [address] [place] [address] 08/29/2025 10:00 AM EDT Appointment [facility] [address] [place] [address] 08/29/2025 11:00 AM EDT Appointment [facility] [address] [place] [address] 09/03/2025 8:40 AM EDT Office Visit [facility] [address], [address] [place] [address] Lillie Pritchard MD [address] [place] [address] 09/05/2025 10:00 AM EDT Appointment [facility] [address] [place] [address] 09/05/2025 11:00 AM EDT Appointment [facility] [address] [place] [address] 09/17/2025 9:45 AM EDT Clinical Support [facility] [place] [address] [place] [address] 09/17/2025 10:30 AM EDT Social Work [facility] [place] [address] [place] [address] Lea Reilly, [place] [address] 09/17/2025 11:20 AM EDT Office Visit [facility] [place] [address] [place] [address] Octavia Herrera, MARIA GUADALUPE [address] [place] [address] documented as of this encounter Procedures Procedure [...] on 08/08/2025 3:10 PM us Shaniqua Mccurdy WELDER FIRST CLASS IMG XR PROCEDURES Final Resu lt documented [...] documented as of this encounter Care Teams Poultry Tender Relationship Specialty Start Date End Date Alvarez Zimmer MD [address] [place] [address] PCP - General Family Medicine 12/07/24 Lea Fernando [address] [facility] [address] [place] [address] Correctional Manager Endocrinology 08/29/24 Rachel Ray APRN [address] [place] [address] Nurse Practitioner Gastroenterology 09/24/24 Tamera Isabel LPN VALUE-BASED TRANSFORMATION PROGRAM Licensed Practical Nurse 05/29/25 Monique Tapia LPN VALUE-BASED [place] [address] TCM Nurse 07/10/25 08/09/25 documented as of this encounter
--- OUTSIDE RECORDS SUMMARY | 2025-08-15 08:47 | XMS_ITS | Encounter Summary ---
Author Organization [facility] Address [address] [place] [address] Care Team Providers Care Golf Club Assembler Name Role Phone Lea Fernando Unavailable [phone] Rachel Ray APRN Unavailable [phone] Alvarez Zimmer MD Primary Care Provider [phone] Tamera Isabel LPN Unavailable Unavailabl e Reason for Referral * Clinic-Administered Medication (Routine) - Closed Specialty Diagnoses / Procedures Referred By Eder zhu Referred To Contact Diagnoses Other ascites Procedures IA ABDOM PARACENTESIS DX/THER W IMAGING GUIDANCE Micheal Glasgow APRN, DNP [address] [place] [address] Phone: tel: fax: [facility] [address] [place] [address] Phone: tel: fax: Referral ID Status Reason Start Date Expiration Date Visits Re quested Visits Authorized [id number] Closed 2025 02/14/2027 1 1 * Imaging (Routine) - Closed Specialty Diagnoses / Procedures Referred By Eder t Referred To Contact Radiology Diagnoses Alcoholic cirrhosis of liver with ascites Procedures US Guided Abdominal Paracentesis Marianna Gordon APRN [address] [place] [address] Phone: tel: fax: Referral ID Status Reason Start Date Expiration Date Visits Re quested Visits Authorized [id number] Closed 07/25/2025 01/24/2027 1 1 Reason for Visit * Imaging (Routine) - Closed Specialty Diagnoses / Procedures Referred By Eder zhu Referred To Contact Radiology Diagnoses Alcoholic cirrhosis of liver with ascites Procedures US Guided Abdominal Paracentesis Marianna Gordon APRN [address] [place] [address] Phone: tel: fax: Referral ID Status Reason Start Date Expiration Date Visits Re quested Visits Authorized [id number] Closed 07/25/2025 01/24/2027 1 1 Encounter Details Date Type Department Care Team (Latest Contact Info) Description 2025 8:47 AM EDT - 2025 11:59 PM EDT Hospital Encounter [facility] Interventional Radiology [address] [place] [address] Kami Cool RN HOSPTIAL PROCTOLOGIST RECOVERY Alcoholic cirrhosis of liver with ascites [...] you attend [facility] or anabaptist services? Patient unable to answer 01/10/2025 Do [...] often do you attend [facility] or anabaptist services? Never 05/29/2025 Do you belong to [...] 06/25/2025 [facility] of Occupat [...] drink first t kennedy in the morning (EYE-WATER SUPPLY TECHNICIAN) to steady your nerves or to get rid of a hangover? 0 06/25/2025 CAGE Questionnaire Score 0 025 Utilities Answer Date Recorded In the past 12 months has th e [employer], gas, oil, or water [employer] threatened to shut off services in your [...] 1 03/01/2025 ergocalciferol (Vitamin D-2) 1.25 MG (49055 UT) capsuleIndication s:Vitamin D deficiency Take 1 [...] is no recent study available for direct dfdi-np-qzyy comparison. Assessment & Plan: Decompensated cirrhosis, MASH [...] the care of this patient. Shaniqua Mccurdy, LABORER PETROLEUM REFINERY Interventional Radiology [phone] [1] Past Medical History: Diagnosis Date ADHD (attention deficit hyperactivity disorder) Allergic Anxiety disorder, unspecified Anxiety Bleeding gums Blood in urine Cataract Chronic kidney disease Cirrhosis (CMS/HCC) Colon cancer screening 09/20/2019 Added automatically from request for surgery [id number] Coronary artery disease Depression 1996 Diabetes mellitus [...] 1979 BLADDER SURGERY N/A Bladder surgery from [email or web address] BREAST BIOPSY 2011 BREAST SURGERY 2010 BUNIONECTOMY Right CATARACT EXTRACTION Bilateral 2016 CHOLECYSTECTOMY 1979 ESOPHAGOGASTRODUODENOSCOPY HYSTERECTOMY N/A Hysterectomy from [email or web address] KNEE SURGERY Bilateral ORAL SURGERY N/A Oral surgery from [email or web address] OTHER SURGICAL HISTORY 2014 ROOT CANAL WISDOM [...] Rfl: 1 ergocalciferol (Vitamin D-2) 1.25 MG (29787 UT) capsule, Take 1 capsule by mouth [...] Description 08/26/2025 1:00 PM EDT Office Visit [facility] Endocrinology [address] [place] [address] Miranda Hobson, LABORER PETROLEUM REFINERY [address] [place] [address] 08/29/2025 10:00 AM EDT Appointment [facility] Inter[facility] Radiology [address] [place] [address] 08/29/2025 11:00 AM EDT Appointment [facility] Inter[facility] Radiology [address] [place] [address] 09/03/2025 8:40 AM EDT Office Visit [facility] [address], [address] [place] [address] Lillie Pritchard MD [address] [place] [address] 09/05/2025 10:00 AM EDT Appointment [facility] Radiology [address] [place] [address] 09/05/2025 11:00 AM EDT Appointment [facility]iology [address] [place] [address] 09/17/2025 9:45 AM EDT Clinical Support [facility] [address] [place] [address] 09/17/2025 10:30 AM EDT Social Work [facility] [address] [place] [address] Lea Reilly, [place] [address] 09/17/2025 11:20 AM EDT Office Visit [facility] [place] [address] [place] [address] Octavia Herrera, PA [address] [place] [address] documented as of this encounter Procedures Procedure [...] hepatic hydrothorax. Patient presents for thoracentesis. TECHNIQUE: College Scouting Coordinator: ADRI Glasgow Procedure: Limited chest ultrasound completed [...] intermittenthepatic hydrothorax. Patient presents for thoracentesis. TECHNIQUE: College Scouting Coordinator: ADRI Glasgow Procedure: Limited chest ultrasound completed [...] on 08/17/2025 1:04 AM us Marianna N Evan LABORER PETROLEUM REFINERY IMG US PROCEDURES Final Resu lt * [...] hepatic hydrothorax. Patient presents for paracentesis. TECHNIQUE: College Scouting Coordinator: ADRI Glasgow Secondary Spot Sprayer: None. Rad Dose: NA Medications: Continuous physiologic [...] intermittenthepatic hydrothorax. Patient presents for paracentesis. TECHNIQUE: College Scouting Coordinator: ADRI Glasgow Secondary Spot Sprayer: None. Rad Dose: NA Medications: Continuous physiologic [...] MD on 08/17/2025 1:13 AM us Marianna N Cheeks LABORER PETROLEUM REFINERY IMG US PROCEDURES Final Resu lt * Total Protein, Peritoneal Fluid (2025 9:25 AM EDT) Total Protein, Fluid 0.8 g/dL 2025 11:55 AM EDT [facility] Peritoneal Fluid Peritoneal cavity structure / Unknown Non-blood Collection / Unknown 2025 9:25 AM EDT 2025 10:45 AM EDT Narrative [facility] - 2025 11:55 AM EDT This test was developed and its performance characteristics determined by [facility]. The U.S. Food and Drug Administration has not approved or cleared this test. However, FDA clearance or approval is not currently required for clinical use. The results are not intended to be used as the sole means for clinical diagnosis or patient management decisions. us Micheal Loyd Glasgow LABORER PETROLEUM REFINERY, DNP LAB BODY FLUIDS AND ST OOLS ORDERABLES Final Result [facility] [address] [place] [address] * (ABNORMAL) Body Fluid Cell Count W/O Diff (2025 9:25 AM EDT) Specimen Source, Body Fluid Peritoneal Fluid 2025 2:25 PM EDT [facility] Specimen Type Body Fluid 2025 2:25 PM EDT [facility] Color, Body fluid Yellow LAB HEMATOLOGY METHOD 2025 2:25 PM EDT [facility] Appearance, Body fluid Cloudy(A) LAB HEMATOLOGY METHOD 2025 2:25 PM EDT [facility] Volume, Body fluid 45.0 cc LAB HEMATOLOGY METHOD 2025 2:25 PM EDT [facility] Red Blood Cell Count, Body fluid 4,000 uL LAB HEMATOLOGY METHOD 2025 2:25 PM EDT [facility] Total Nucleated Cell Count, Body fluid 129 uL LAB HEMATOLOGY METHOD 2025 2:25 PM EDT [facility] Fluid Container Specimen received in miscellaneous container LAB HEMATOLOGY METHOD 2025 2:25 PM EDT [facility] Body Fluid Peritoneal fluid / Unknown Non-blood Collection / Unknown 2025 9:25 AM EDT 2025 10:44 AM EDT us Micheal E Pee LABORER PETROLEUM REFINERY, DNP LAB BODY FLUIDS AND ST OOLS ORDERABLES Final Result [facility] [address] [place] [address] documented in this encounter Visit Diagnoses Diagnosis [...] documented as of this encounter Care Teams Golf Club Assembler Relationship Specialty Start Date End Date Alvarez Zimmer MD [facility] [place] [address] PCP - General Family Medicine 12/07/24 Lea Fernando [address] [place] [address] Assembly Worker Endocrinology 08/29/24 Rachel Ray, ADRI [address] [address] Nurse Practitioner Gastroenterology 09/24/24 Tamera Isabel LPN VALUE-BASED TRANSFORMATION PROGRAM Licensed Practical Nurse 05/29/25 documented as of this encounter
--- OUTSIDE RECORDS SUMMARY | 2025-08-18 05:21 | XMS_ITS | Encounter Summary ---
Author Organization [facility] Address [address] [place] [address] Care Team Providers Care Cook Helper Fruit Name Role Phone Lea Fernando Unavailable [phone] Rachel Ray STOCK CLERK SELF [employer]ICE STORE Unavailable [phone] Alvarez Zimmer MD Primary Care Provider [phone] Tamera Isabel CEMENT MASON HELPER Unavailable Unavailabl e Reason for Referral * Consultation (Routine) - Authorized Specialty Diagnoses / Procedures Referred By Eder zhu Referred To Contact Family Medicine Diagnoses Hepatic encephalopathy (CMS/HCC) Sushma Meza MD [address] [place] [address] [address] [place] [address] Phone: tel: fax: Referral ID Status Reason Start Date Expiration Date Visits Requested Visits Authorized [id number] Authorized Specialty Services Required 08/20/2025 02/19/2027 1 1 Scheduling Instructions TCM, hepatic enceph Reason for Visit * Reason Comments Shortness of Breath * Auth/Cert (Routine) Specialty Diagnoses / Procedures Referred By Eder zhu Referred To Contact Diagnoses Hepatic encephalopathy (CMS/HCC) Urinary tract infection without hematuria, site unspecified decompensated liver cirrhosis and uti Sushma Meza MD 5 [facility] [address] [place] [address] Phone: tel: fax: [facility] Inpatient [address] [place] [address] Phone: tel: Referral ID Status Reason Start Date Expiration Date Visits Re quested Visits Authorized [id number] 1 1 Encounter Details Date Type Department Care Team (Late st Contact Info) Description 08/18/2025 5:21 AM EDT - 08/20/2025 3:15 PM EDT Hospital Encounter [facility] [address] [place] [address] Alvarez Brice MD [address] [place] [address] Ernesto Ramírez MD [address] [place] [address] Sushma Meza MD [address] [address] Hepatic encephalopathy (CMS/HCC) (Primary Dx); Urinary tract infection without hematuria, site unspecified Discharge Disposition: Home or Self Care Social [...] you attend [facility] or pentecostal services? Patient unable to [...] afraid of your partner or ex-partner? No 08/19/2025 Within the last year, have y ou been humiliated or emotionally abused in other ways by your partner or ex-partner? No Within the last year, have y ou been kicked, hit, slapped, or otherwise physically hurt by your partner or ex-partner? No 08/19/2025 Within the last year, have y ou been raped or forced to have any kind of sexual activity by your partner or ex-partner? No 08/19/2025 Social Connection and Isolation Panel Answer Date [...] Never 06/25/2025 [facility] [...] the money to buy more. Never true 08/19/20 25 Within the past 12 months, t he food you bought just didn't last and you didn't have money to get more. Never true 08/19/2025 PRAPARE - Transportation Answer Date Re corded In the past 12 months, has l ack of transportation kept you from medical appointments or from getting medications? No 07/23 In the past 12 months, has l ack of transportation kept you from meetings, work, or from getting things needed for daily living? No 08/19/2025 Housing Stability Vital Sign Answer Rajesh e Recorded In the last 12 months, was t here a time when you were not able to pay the mortgage or rent on time? No 08/19/2025 In the past 12 months, how m any times have you moved where you were living? 0 08/19/2025 At any time in the past 12 m [facility], were you homeless or living in a senior care (including now)? No 08/19/2025 [facility] Utilities Answer Date Recorded In the past 12 months has th e electric, gas, oil, or water company threatened to shut off services in your home? No 08/19/2025 CAGE ASSESSMENT Answer Date Recorded Cage unable [...] drink first t kennedy in the morning (EYE-AUTOMATION QTP TESTER) to steady your nerves or to get rid of a hangover? 0 06/25/2025 CAGE Questionnaire Score 0 025 Education Answer Date Recorded What is the [...] Sign Reading Time Taken Comments Blood Pressure 92/36 08/20/2025 11:30 AM EDT Pulse 67 08/20/2025 11:30 AM EDT Temperature 36.6 C (97.9 F) 08/20/2025 11:30 AM EDT Respiratory Rate 17 08/20/2025 11:30 AM EDT Oxygen Saturation 96% 08/20/2025 11:30 AM EDT Inhaled Oxygen Concentration - - Weight 84.4 kg (186 lb 1.1 oz) 08/19/2025 11:00 AM EDT Height 165.1 cm (5' 5 ) 08/19/2025 11:00 AM EDT Body Mass Index 30.96 08/19/2025 11:00 AM EDT documented in this encounter Functional Status * Calculated C-SSRS Risk Score (Lifetime/Recent) Answer Date of Assessment Author No Risk Indicated 08/20/2025 8:00 AM EDT Laverne Zepeda RN * Question Answer Date of Assessment Author 1. Wish to be (Past 1 Month) No 08/20/2025 8:00 AM EDT Bill Booth RN 2. Non-Specific Active Suici liz Thoughts (Past 1 Month) No 08/20/2025 8:00 AM EDT Rachael Booth, PARK 6. Suicidal Behavior (Lifetime) No 8:00 AM EDT Laverne Booth, RN documented as of this encounter Discharge Instructions * Discharge Instructions* Siri Eaton MD - 08/20/2025 9:35 AM EDT Within 48 hours of discharge, someone will reach out to you to schedule a Transition of Care Management appointment (TCM) at [facility] on [address] This appointment will take place in the first two weeks after you leave the hospital and is important for your follow-up and to prevent the need to be re-admitted to the hospital. This appointment will be to discuss your recent admission to the hospital and to discuss medication changes, specialist follow-ups, and any additional testing that may be needed. Please keep all follow ups and take all medications as prescribed. Your TCM appointment will be 09/03 at 8:[address] Fern Pritchard documented in this encounter Medications at Time of Discharge bumetanide (Bumex) 0.5 MG tablet Take 1 tablet by mouth 3 times a week. M, W, F calcitriol (Rocaltrol) 0.25 MCG capsuleIndication s:Chronic kidney [...] 1 03/01/2025 ergocalciferol (Vitamin D-2) 1.25 MG (93537 UT) capsuleIndication s:Vitamin D deficiency Take 1 [...] Take 1 tablet by mouth nightly. 07/09/2025 documented as of this encounter Miscellaneous Notes * Query Clarification Note - Sushma Meza MD - 08/20/2025 3:15 PM EDT Physician Clarification Please review the following and provide your response below. 08/18 Family Medicine H&P: 65yo female admitted with decompensated cirrhosis of liver with ascites 08/18/25 06:11 08/18/25 07:32 08/19/25 01:30 08/20/25 03:26 INR >15.5 (HH) 2.1 (H) 2.0 (H) 2.0 (H) Please specify a diagnosis and etiology that is associated with the abnormal INR levels with monitoring. 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 * Nursing Note - Laverne Booth RN - 08/20/2025 3:07 PM EDT Report called and given to MG Carmona. * Care Plan - Laverne Booth RN - 08/20/2025 2:37 PM EDT Problem: Adult Inpatient Plan of Care Goal: Plan of Care Review 08/20/2025 1437 by Laverne Booth RN Outcome: Adequate for Care Transition 08/20/2025 075 by Laverne Booth RN Outcome: Ongoing, Progressing Flowsheets (Taken 08/20/2025 0754) Progress: improving Outcome Evaluation: pt will continue to advance towards plan of care, redirecting pt as needed Plan of Care Reviewed With: patient Goal: Patient-Specific Goal (Individualized) 08/20/2025 1437 by Laverne Booth RN Outcome: Adequate for Care Transition 08/20/2025 075 by Laverne Booth RN Outcome: Ongoing, Progressing Flowsheets (Taken 08/20/2025 0754) Patient/Family-Specific Goals (Include Timeframe): pt will remain free from falls/ injury throughout the day shift with use of bed alarm at all times when a care tker is not in the room Individualized Care Needs: pt safety Anxieties, Fears or Concerns: none stated Goal: Absence of Hospital-Acquired Illness or Injury 08/20/20251436 by Laverne Booth RN Outcome: Adequate for Care Transition 08/20/2025 075 by Laverne Booth RN Outcome: Ongoing, Progressing Intervention: Identify and Manage Fall Risk Flowsheets (Taken 08/20/2025 075) Safety Promotion/Fall Prevention: activity supervised safety round/check completed Intervention: Prevent Skin Injury Flowsheets (Taken 08/20/2025 075) Body Position: weight shifting Skin Protection: protective footwear used Intervention: Prevent and Manage VTE (Venous Thromboembolism) Risk Flowsheets (Taken 08/20/2025 0726) VTE Prevention/Management: bilateral SCDs (sequential compression devices) on Intervention: Prevent Infection Flowsheets (Taken 08/20/2025 075) Infection Prevention: hand hygiene promoted rest/sleep promoted Goal: Optimal Comfort and Wellbeing 08/20/20251436 by Laverne Booth RN Outcome: Adequate for Care Transition 08/20/2025 075 by Laverne Booth RN Outcome: Ongoing, Progressing Intervention: Monitor Pain and Promote Comfort Flowsheets (Taken 08/20/2025 075) Pain Management Interventions: pain management plan reviewed with patient/caregiver rest Intervention: Provide Person-Centered Care Flowsheets (Taken 08/20/2025 075) Trust Relationship/Rapport: care explained choices provided emotional support provided empathic listening provided questions answered thoughts/feelings acknowledged reassurance provided questions encouraged Problem: Fall Injury Risk Goal: Absence of Fall and Fall-Related Injury 08/20/20251436 by Laverne Booth RN Outcome: Adequate for Care Transition 08/20/2025753 by Laverne Booth RN Outcome: Ongoing, Progressing Intervention: Identify and Manage Contributors Flowsheets (Taken 08/20/2025753) Medication Review/Management: medications reviewed Self-Care Promotion: independence encouraged Intervention: Promote Injury-Free Environment Flowsheets (Taken 08/20/2025 075) Safety Promotion/Fall Prevention: activity supervised safety round/check completed Problem: Skin Injury Risk Increased Goal: Skin Health and Integrity 08/20/20251436 by Laverne Booth RN Outcome: Adequate for Care Transition 08/20/2025 075 by Laverne Booth RN Outcome: Ongoing, Progressing Intervention: Optimize Skin Protection Flowsheets (Taken 08/20/2025753) Activity Management: activity adjusted per tolerance Pressure Reduction Techniques: frequent weight shift encouraged Skin Protection: protective footwear used Head of Bed (HOB) Positioning: HOB at 30-45 degrees Intervention: Promote and Optimize Oral Intake Flowsheets (Taken 08/20/2025753) Oral Nutrition Promotion: physical activity promoted Problem: Diabetes Goal: Blood Glucose Level Within Target Range 08/20/2025 1437 by Laverne Booth RN Outcome: Adequate for Care Transition 08/20/2025753 by Laverne Booth RN Outcome: Ongoing, Progressing Intervention: Optimize Glycemic Control Flowsheets (Taken 08/20/2025753) Hyperglycemia Management: blood glucose monitored Problem: Confusion Acute Goal: Optimal Cognitive Function 08/20/2025 1437 by Laverne Booth RN Outcome: Adequate for Care Transition 08/20/2025753 by Laverne Booth RN Outcome: Ongoing, Progressing Intervention: Minimize Contributing Factors Flowsheets (Taken 08/20/2025753) Sensory Stimulation Regulation: care clustered Reorientation Measures: calendar in view clock in view Communication Support Strategies: active listening utilized * Lamberto John RN - 08/20/2025 11:26 AM EDT Images from the original note were not included. [address] Paracentesis Your healthcare provider recommends that you have paracentesis. This is a procedure to remove extrafluid from your belly (abdomen). A needle is used to drain the fluid. A small sample of fluid may be taken and tested for problems. If the fluid buildup is causing discomfort or pain, a large volume of the fluid may be drained. To do this, a tube is attached to a small catheter. The fluid is drained into a container that sits outside of the body. Paracentisis can be done to help make a diagnosis (small volume) or for bothersome symptoms (large volume). If symptoms are severe, paracentesis may be done as an emergency procedure. Otherwise, it will be scheduled ahead of time. Read on to learn more about paracentesis and how it works. Understanding ascites Many of the [...] are taking. This includes all prescription medicines, ginc-wfz-xpkqsar medicines, street drugs, herbs, vitamins, and other [...] Dizziness, lightheadedness, or fainting Last Reviewed Date: 2025 00:00:00 ?? [id number] [employer]. All rights reserved. This information is not intended as a substitute for professional medical care. Always follow your healthcare professional's instructions. * Consults - Rosaline Quiroz - 08/20/2025 11:10 AM EDT Pastoral Care Note As planned, employment program representative made a brief continuation of care visit and found patient feeling 'very sleepy.' Patient will ask nurse to page employment program representative if a return visit is desired later. Referral From: Associate Director Financial Aid Initiated Pastoral Care Provided For: Patient Patient Profile: Consult Reasons: Continuation of care Unable to Assess: Declined at this time Interventions: Interventions Provided: Patient declined visit Pastoral Care Outcomes: Patient Outcomes: Appreciative of Associate Director Financial Aid Support, Is knowledgeable about [facility] [employer] [facility] * John Vargas - Lamberto Chacko RN - 08/20/2025 10:02 AM EDT Images from the original note were not included. [id number] Cirrhosis The liver is found on the right side of your belly (abdomen). It's just below the rib cage. The liver has many important jobs. It removes toxins from the blood. It also makes important proteins that help your blood clot when you are wounded. Cirrhosis is scarring of the liver. It happens over time from chronic liver injury. This damage is permanent. It can cause your liver to stop working (liver failure). The most common causes of cirrhosis are long-term heavy alcohol use and chronic hepatitis B or C. There are many other causes. The most common one used to be called nonalcoholic fatty liver disease and is now called metabolic dysfunction- associated steatotic liver disease. Other causes include autoimmune diseases targeting the liver, inherited liver diseases, such as Stanley disease and hemochromatosis, a variety of toxins or long-term use of certain medicines. Diseases that damage, destroy, or block bile ducts in the liver can also cause cirrhosis. Common symptoms of cirrhosis include: ? Tiredness or weakness ? Loss of appetite ? Nausea and vomiting ? Easy bleeding and bruising ? Swelling of the belly (abdomen), lower legs, ankles, or feet ? Weight loss ? Yellowing of the eyes or skin (jaundice), pale or mely-colored stools, and dark yellow urine ? Itching ? Redness on the palms of the hands ? Confusion Treatment helps ease symptoms and prevent more liver damage. You may also get treatment to cure hepatitis C and treat hepatitis B. Quitting alcohol will help stop the disease from getting worse. It may also prevent complications. If cirrhosis gets worse and becomes life-threatening, you may need a liver transplant. Home care ? Don't take medicines that can make liver damage worse. Your healthcare provider will tell you if any of the medicines you take need to be changed. Talk with your provider or pharmacist before taking any medicine not prescribed. These include any oqql-ywl-tquygif medicines, dietary supplements, and herbs. Some of these may make liver damage worse. ? Talk with your healthcare provider about medicines that have acetaminophen or NSAIDs, such as ibuprofen and naproxen. These can harm your liver and kidneys. ? Stop drinking alcohol. If you find it hard to stop drinking, seek professional help. Consider joining Alcoholics Anonymous or another type of treatment program for support. Ask your providers for detoxification information or rehabilitation centers. ? If you use IV drugs, you are at high risk for hepatitis B and C. Get help to stop. ? Get regular exercise and maintain your weight in the normal range. Get help from your provider ifthis is difficult for you. Treat any underlying metabolic conditions. This is very important because metabolic conditions, such as obesity, high blood pressure, heart disease, diabetes, and high cholesterol can lead to liver disease or make it worse. ? Be sure to ask your healthcare provider about recommended vaccines. Get vaccinated for pneumonia,influenza, hepatitis A and B, and shingles. These include vaccines for viruses that can cause liverdisease. Follow-up care Follow up with your healthcare provider, or as advised. If you have cirrhosis, you may need testingto look for complications, including liver cancer. Keep follow-up appointments. Consistent trackingof your overall health and lab values is important. For more information and to learn about support groups for people with liver disease, contact: ? [employer], www.liverfoundation.org ? [employer], www.aasldfoundation.org/patients When to get medical advice Call your healthcare provider right away if: ? You rapidly gain weight, with increased size of your belly (abdomen) or leg swelling ? Yellow color of your skin or eyes (jaundice) gets worse ? You have excess bleeding from cuts or injuries ? You have blood in your vomit or bleeding from your rectum Last Reviewed Date: 2025 00:00:00 ?? [id number] [employer]. All rights reserved. This information is not intended as a substitute for professional medical care. Always follow your healthcare professional's instructions. * John ZendejasTHEO - Lamberto Chacko RN - 08/20/2025 10:02 AM EDT Images from the original note were not included. 36103 Urinary Tract Infections in Women Urinary tract infections (UTIs) are most often caused by bacteria. These bacteria enter the urinarytract. The bacteria may come from inside the body. Or they may travel from the skin outside the rectum or vagina into the urethra. Female anatomy makes it easy for bacteria from the bowel to enter a person?s urinary tract. This is the most common source of UTIs. This means women develop UTIs more often than men. Pain in or around the urinary tract is a common UTI symptom. But the only way to know for sure if you have a UTI is for the healthcare provider to test your pee. The two tests that may be done are the urinalysis and urine culture. These tests tell your provider if you have a UTI and what type of bacteria is causing it. Gender words are used here to talk about anatomy and health risk. Please use this information in a way that works best for you and your provider as you talk about your care. Types of UTIs ? Cystitis. A bladder infection (cystitis) is the most common UTI in women. You may have an urgent or frequent need to pee. You may also have pain, burning when you pee, and bloody urine. ? Urethritis. This is an inflamed urethra. This is the tube that carries urine from the bladder to outside the body. You may have lower stomach or back pain. You may also have an urgent or frequent need to pee. ? Pyelonephritis. This is a kidney infection. It can be serious and damage your kidneys if not treated. You may need to stay in the hospital in severe cases. You may have a fever and lower back pain. Medicines to treat a UTI Most UTIs are treated with antibiotics. These kill the bacteria. The length of time you need to take them depends on the type of infection. It may be as short as 3 days. You may need a low-dose antibiotic for several months if you have repeated UTIs. Take antibiotics exactly as directed. Don?t stoptaking them until all of the medicine is gone, even if you feel better. The infection may not go away fully and return if you stop taking the antibiotic too soon. You may also develop a resistance tothe antibiotic. This can make it much harder to treat. Lifestyle changes to treat and prevent UTIs The lifestyle changes below will help get rid of your UTI. They may also help prevent future UTIs. ? Drink plenty of fluids. This includes water, juice, or other caffeine-free drinks. Fluids help flush bacteria out of your body. ? Empty your bladder. Always empty your bladder when you feel the urge to pee. And always pee before going to sleep. Urine that stays in your bladder can lead to infection. Try to pee before and after sex as well. ? Practice good personal hygiene. Wipe yourself from front to back after using the toilet. This helps keep bacteria from getting into the urethra. ? Wear cotton underwear. Don't wear synthetic or tight-fitting underwear that can trap moisture. Change out of wet bathing suits and workout clothing quickly. ? Take showers. Showers are better than baths for preventing UTIs. ? Use condoms during sex. These help prevent UTIs caused by sexually transmitted bacteria. Also don't use spermicides during sex. These can increase the risk for UTIs. Choose other forms of control instead. A low dose of a preventive antibiotic may be used for women who tend to get UTIs aftersex. Be sure to discuss this choice with your healthcare provider. ? Follow up with your healthcare provider as directed. They may test to make sure the infection hascleared. If needed, more treatment may be started. Last Reviewed Date: 2025 00:00:00 ?? [id number] [employer]. All rights reserved. This information is not intended as a substitute for professional medical care. Always follow your healthcare professional's instructions. * Hospital Course - Siri Eaton MD - 08/20/2025 9:31 AM EDT History of Presenting Illness: Monika Zimmer is a 65 y.o. female with PMH significant for COPD, CKD stage IIIB, coronary arterydisease, diabetic neuropathy, dysphagia, obesity, JONATHAN on BiPAP nightly, RA, SLE, HLD, type 2 DM, cirrhosis with ascites, esophageal varices, portal hypertension, IBS C/D presenting for concerns of UTI and decompensated cirrhosis. Per chart review, undergoes regular paracentesis +/- thoracentesis which was most recently on 08/15 (Right thoracentesis with 1.4 L removed, Paracentesis with 3 L removed). The next day the patient was complaining of abdominal discomfort which is normal for her following paracentesis but nursing facility she is at had been mentioning progressive altered mental statusfor the past 2 days and this was sent to OSH. At the OSH there were concerns for low blood pressureand UTI and decompensated cirrhosis was discovered, and ultrasound-guided abdominal paracentesis with total of 6.5 L of clear yellow fluid removed and administered 37.5 g of IV albumin x1 postprocedure. Given Rocephin x1 fur suspected UTI and transferred to [facility] ED for evaluation, which was then transferred to [facility] ED Course: Vitals POA: Pulse 51, respiratory rate 18, BP 108/31, 95% on room air. Lab work pertinent for WBC 3.25, hemoglobin 9.6, platelet count 71 K, PT 23.5, INR 2.1. VBG showed pH 7.41, pCO2 35, PO2 25, HC03 22. On CMP glucose 203, creatinine 2.67 (baseline 1.1-1.3), AST 45, total bilirubin 3.3, alkaline phosphatase 134, magnesium 1.7, phosphorus 4.7. Lactate 2.1 Outside Hospital on 08/17: Ultrasound-guided abdominal paracentesis with total of 6.5 L of clear yellow fluid removed and administered 37.5 g of IV albumin x1 postprocedure, awaiting lab analysis of fluid OSH imaging: Chest x-ray, CT neuro imaging, CT thoracic imaging. Will get records scanned into chart Problem Based Summaries: #Hepatic encephalopathy (CMS/HCC) #Hx of spontaneous bacterial peritonitis Presented with concerns of increasing confusion iso fewer bowel movements in the few days prior to presenting and not having received lactulose doses as scheduled. Concern for hepatic encephalopathy with hallucinations and recent altered mental status in the setting of poor sleep. Ammonia level ordered and improved to 77 from 100 at OSH prior to presenting. Low concern for SBP. Treated with 3 days of ceftriaxone for UTI and resumed SBP prophylaxis with ciprofloxacin on discharge. #JONATHAN treated with BiPAP Stayed on BiPAP while sleeping throughout hospital stay. #Type 2 diabetes mellitus, with long-term current use of insulin Continued home dose of 24 U long acting insulin nightly, with SSI while admitted. #Pleural effusion associated with hepatic disorder Decreased bibasilar breath sounds with increased shortness of air, likely iso fluid overload compressing lungs. CXR with moderate right sided pleural effusion. Stable on 08/20 with plan to resume outpatient thoracentesis on 08/22 as usual. #Cirrhosis of liver with ascites Abdominal distension with history of weekly therapeutic paracentesis. Abdominal ultrasound to determine need for therapeutic paracentesis reports moderate volume ascites. As patient was stable and returned to baseline 08/20 discharged to resume outpatient weekly paracentesis. #Hyponatremia with excess extracellular fluid volume Sodium of 125 with clinical signs of fluid overload. Likely chronic, placed 2L per day fluid restriction. Improved to 132 after fluid restriction. Patient should continue 2 L fluid restriction on DC. #Acute kidney injury superimposed on stage 3b chronic kidney disease Creatinine up to 2.66 from baseline of 1.2 with eGFR of 19. Improved to 2.42 prior to discharge. #Suspected UTI: S/p 3 day course of ceftriaxone IV for suspected UTI. New Medications: None Discontinued Medications: None Medication Modifications: None TCM Follow-up: Issues to discuss at follow up visit: -Ensure she is continuing to take lactulose TID -Check Cr to ensure CARLOTTA resolved to baseline -Ensure staying on 2 L fluid restriction per day. Outside Specialities & Follow-up Appointments: Follow-up: PCP Future Appointments Date Time Provider Department Center 08/22/2025 11:15 AM IR [facility]2 [facility] 08/22/2025 12:15 PM [facility] 08/26/2025 1:00 PM Miranda Hobson, ADRI [facility] 08/29/2025 10:00 AM IR US[facility] 08/29/2025 11:00 AM IR US[facility]1 [facility] 09/05/2025 10:00 AM IR US[facility]1 [facility] 09/05/2025 11:00 AM IR US-1 [facility] 09/17/2025 9:45 AM [facility] 09/17/2025 10:30 AM Lea Reilly LCSW [facility] 09/17/2025 11:20 AM Octavia Herrera PA [facility] Visit Vitals BP 82/60 (BP Location: Left arm, Patient Position: Lying) Pulse 58 Temp 36.7 ??C (98.1 ??F) (Oral) Resp 16 Ht 1.651 m (5' 5 ) Wt 84.4 kg (186 lb 1.1 oz) SpO2 95% BMI 30.96 kg/m?? OB Status Hysterectomy Smoking Status Never BSA 1.97 m?? * Discharge Summary - Siri Eaton MD - 08/20/2025 9:17 AM EDT Hospitalization Admit Date/Time: 08/18/2025 5:21 AM Admitting Attending: Sushma Meza Discharge Date: 08/20/2025 Discharge Attending Physician: Sushma Meza MD PCP name and Address: Alvarez Zimmer MD [address] [place] [id number] Referring provider name and address: Rowan Castellano, DO [address] [place] [address] Chief Concern, Brief History of Present Illness, and Hospital Course History of Presenting Illness: Monika Zimmer is a 65 y.o. female with PMH significant for COPD, CKD stage IIIB, coronary arterydisease, diabetic neuropathy, dysphagia, obesity, JONATHAN on BiPAP nightly, RA, SLE, HLD, type 2 DM, cirrhosis with ascites, esophageal varices, portal hypertension, IBS C/D presenting for concerns of UTI and decompensated cirrhosis. Per chart review, undergoes regular paracentesis +/- thoracentesis which was most recently on 08/15 (Right thoracentesis with 1.4 L removed, Paracentesis with 3 L removed). The next day the patient was complaining of abdominal discomfort which is normal for her following paracentesis but nursing facility she is at had been mentioning progressive altered mental statusfor the past 2 days and this was sent to OSH. At the OSH there were concerns for low blood pressureand UTI and decompensated cirrhosis was discovered, and ultrasound-guided abdominal paracentesis with total of 6.5 L of clear yellow fluid removed and administered 37.5 g of IV albumin x1 postprocedure. Given Rocephin x1 fur suspected UTI and transferred to [facility] ED for evaluation, which was then transferred to [facility] ED Course: Vitals POA: Pulse 51, respiratory rate 18, BP 108/31, 95% on room air. Lab work pertinent for WBC 3.25, hemoglobin 9.6, platelet count 71 K, PT 23.5, INR 2.1. VBG showed pH 7.41, pCO2 35, PO2 25, HC03 22. On CMP glucose 203, creatinine 2.67 (baseline 1.1-1.3), AST 45, total bilirubin 3.3, alkaline phosphatase 134, magnesium 1.7, phosphorus 4.7. Lactate 2.1 Outside Hospital on 08/17: Ultrasound-guided abdominal paracentesis with total of 6.5 L of clear yellow fluid removed and administered 37.5 g of IV albumin x1 postprocedure, awaiting lab analysis of fluid OSH imaging: Chest x-ray, CT neuro imaging, CT thoracic imaging. Will get records scanned into chart Problem Based Summaries: #Hepatic encephalopathy (CMS/HCC) #Hx of spontaneous bacterial peritonitis Presented with concerns of increasing confusion iso fewer bowel movements in the few days prior to presenting and not having received lactulose doses as scheduled. Concern for hepatic encephalopathy with hallucinations and recent altered mental status in the setting of poor sleep. Ammonia level ordered and improved to 77 from 100 at OSH prior to presenting. Low concern for SBP. Treated with 3 days of ceftriaxone for UTI and resumed SBP prophylaxis with ciprofloxacin on discharge. #JONATHAN treated with BiPAP Stayed on BiPAP while sleeping throughout hospital stay. #Type 2 diabetes mellitus, with long-term current use of insulin Continued home dose of 24 U long acting insulin nightly, with SSI while admitted. #Pleural effusion associated with hepatic disorder Decreased bibasilar breath sounds with increased shortness of air, likely iso fluid overload compressing lungs. CXR with moderate right sided pleural effusion. Stable on 08/20 with plan to resume outpatient thoracentesis on 08/22 as usual. #Cirrhosis of liver with ascites Abdominal distension with history of weekly therapeutic paracentesis. Abdominal ultrasound to determine need for therapeutic paracentesis reports moderate volume ascites. As patient was stable and returned to baseline 08/20 discharged to resume outpatient weekly paracentesis. #Hyponatremia with excess extracellular fluid volume Sodium of 125 with clinical signs of fluid overload. Likely chronic, placed 2L per day fluid restriction. Improved to 132 after fluid restriction. Patient should continue 2 L fluid restriction on DC. #Acute kidney injury superimposed on stage 3b chronic kidney disease Creatinine up to 2.66 from baseline of 1.2 with eGFR of 19. Improved to 2.42 prior to discharge. #Suspected UTI: S/p 3 day course of ceftriaxone IV for suspected UTI. New Medications: None Discontinued Medications: None Medication Modifications: None TCM Follow-up: Issues to discuss at follow up visit: -Ensure she is continuing to take lactulose TID -Check Cr to ensure CARLOTTA resolved to baseline -Ensure staying on 2 L fluid restriction per day. Outside Specialities & Follow-up Appointments: Follow-up: PCP Future Appointments Date Time Provider Department Center 08/22/2025 11:15 AM IR [facility]2 [facility] 08/22/2025 12:15 PM [facility] 08/26/2025 1:00 PM [facility] 10:00 [facility] 08/29/[facility]25 11:00 AM [facility] 09/05/2025 10:00 AM [facility] 09/05/2025 11:00 AM [facility] 09/17/2025 9:45 AM [facility] LAB [facility] 09/17/2025 10:30 AM Lea Reilly LCSW [facility] 09/17/2025 11:20 AM Octavia Herrera, MARIA GUADALUPE [facility] Visit Vitals BP 82/60 (BP Location: Left arm, Patient Position: Lying) Pulse 58 Temp 36.7 ??C (98.1 ??F) (Oral) Resp 16 Ht 1.651 m (5' 5 ) Wt 84.4 kg (186 lb 1.1 oz) SpO2 95% BMI 30.96 kg/m?? OB Status Hysterectomy Smoking Status Never BSA 1.97 m?? Medication List . bumetanide 0.5 MG tablet Commonly known as: Bumex Take 1 tablet by mouth 3 times a week. M, W, F calcitriol 0.25 MCG capsule Commonly known as: Rocaltrol Take 1 capsule by mouth daily. carboxymethylcellulose PF 0.5 % ophthalmic solution Commonly known as: Refresh Plus Administer 1 drop into both eyes as needed for dry eyes. cetirizine 10 MG tablet Commonly known as: ZyrTEC Take 1 tablet by mouth daily. cholecalciferol 25 MCG (1000 UT) tablet Commonly known as: Vitamin D-3 Take 1 tablet by mouth daily. Ask about: Which instructions should I use? ciprofloxacin 500 MG tablet Commonly known as: Cipro Take 1 tablet by mouth daily. COMPLETE WOMENS PO Take 1 tablet by mouth in the morning. ergocalciferol 1.25 MG (32023 UT) capsule Commonly known as: Vitamin D-2 Take 1 capsule by mouth 1 time per week. insulin glargine-yfgn 100 UNIT/ML injection vial Inject 24 Units under the skin daily. insulin lispro 100 UNIT/ML injection Commonly known as: Admelog Inject 0-10 Units under the skin 3 times a day with meals. See After Visit Summary for instructionson how to take your insulin. Ask about: Which instructions should I use? lactulose 10 GM/15ML solution Commonly known as: Chronulac Take 30 mL by mouth 3 times a day. Magnesium Oxide (Laxative) 500 MG tablet Take 1 tablet by mouth daily. midodrine 5 MG tablet Commonly known as: Proamatine Take 3 tablets by mouth 3 times a day. prochlorperazine 5 MG tablet [...] (750 mg) 1 (one) time each day. Discharge Diagnosis Medical Problems Active and Resolved Hospital Problems Hospital JONATHAN treated with BiPAP Current Assessment & Plan 08/17/2025 Hospital Encounter Written 08/20/2025 8:15 AM by Arash Cheng - 08/19 Poor sleep and comfort issues with hospital bipap. Her family is bringing home bipap today. -08/20 Patient reports better sleep and comfort with use of home CPAP Type 2 diabetes mellitus, with long-term current use of insulin ([facility]) Current Assessment & Plan 08/17/2025 Hospital Encounter Written 08/20/2025 8:15 AM by Arash Cheng -08/19 Glucose remains in the mid 200s, she has been taking her home dose of glargine in the morning. Start glargine at night with 24 units tonight. Pending response to timing change, reassess insulinregimen. -08/20 Glucose remains in the high 200s this morning despite changing glargine 24 to nightly yesterday. RESOLVED: Acute kidney injury superimposed on stage 3b chronic kidney disease ([facility]) Current Assessment & Plan 08/17/2025 Hospital Encounter Written 08/20/2025 8:15 AM by Arash Cheng -08/19 Creatinine up to 2.66 from baseline of 1.2 with eGFR of 19. Balance extracellular fluid overload with adequate intravascular volume status, 2L per day fluid restriction and trend creatinine. -08/20 Creatinine down to 2.42 from 2.66 yesterday. Continue current daily fluid intake and track creatinine as CARLOTTA resolves. Cirrhosis of liver with ascites (CMS/HCC) Current Assessment & Plan 08/17/2025 Hospital Encounter Written 08/20/2025 8:15 AM by Arash Cheng -08/19 Abdominal distension with history of weekly therapeutic paracentesis. Abdominal ultrasound to determine need for therapeutic paracentesis reports moderate volume ascites. -08/20 Abdominal ultrasound revealed moderate ascites. Paracentesis scheduled for 08/22 with IR. Hx of spontaneous bacterial peritonitis Current Assessment & Plan 08/17/2025 Hospital Encounter Written 08/20/2025 8:15 AM by Arash Cheng -08/19 Recurrent abdominal fluid accumulation increases risk for SBP. Due to cross coverage with ceftriaxone, hold ciprofloxacin today and resume tomorrow. Continue home rifaximin, and lactulose todayand restart ciprofloxacin tomorrow. -08/20 Restart ciprofloxacin 500mg today with rifaximin and lactulose to resume home SBP regimen. Pleural effusion associated with hepatic disorder Current Assessment & Plan 08/17/2025 Hospital Encounter Written 08/20/2025 8:15 AM by Arash Cheng - 08/19 Decreased bibasilar breath sounds with increased shortness of air. Chest X-Ray to determine need for repeat thoracentesis. -08/20 Chest xray revealed right sided pleural effusion and left trace pleural effusion. Thoracentesis scheduled for 08/22 with IR. * (Principal) RESOLVED: Hepatic encephalopathy (CMS/HCC) Current Assessment & Plan 08/17/2025 Hospital Encounter Written 08/20/2025 8:15 AM by Arash Cheng - 08/19 Concern for hepatic encephalopathy with hallucinations and recent altered mental status in the setting of poor sleep. Ammonia level ordered and improved from prior to presenting. -08/20 Ammonia level decreasing (133 on 08/17 down to 77 on 08/19). Hallucinations absent today on rounds, and she is Aox4. Hyponatremia with excess extracellular fluid volume Current Assessment & Plan 08/17/2025 Hospital Encounter Written 08/20/2025 8:15 AM by Arash Cheng -08/19 Sodium of 125 with clinical signs of fluid overload. Likely chronic, placed 2L per day fluid restriction. -08/20 Sodium up to 132 from 125 yesterday with 2L fluid restriction. Post Discharge Instructions Within 48 hours of discharge, someone will reach out to you to schedule a Transition of Care Management appointment (TCM) at [facility] on [address]. This appointment will take place in the first two weeks after you leave the hospital and is important for your follow-up and to prevent the need to be re-admitted to the hospital. This appointment will be to discuss your recent admission to the hospital and to discuss medication changes, specialist follow-ups, and any additional testing that may be needed. Please keep all follow ups and take all medications as prescribed. Outpatient Follow-Up Future Appointments Date Time Provider Department Center 08/22/2025 11:15 AM IR US[facility]2 [facility] 08/22/2025 12:15 PM IR [facility]2 [facility] 08/26/2025 1:00 PM [facility] 08/29/[facility]25 10:00 AM IR [facility] 08/29/2025 11:00 AM IR US[facility]1 [facility] 09/05/2025 10:00 AM IR US[facility] 09/05/2025 11:00 AM IR US[facility]1 [facility] 09/17/2025 9:45 AM [address] 09/17/2025 10:30 AM Lea Reilly LCSW [facility] 09/17/2025 11:20 AM Octavia Herrera PA [facility] Test Results Pending At Discharge None Pertinent Physical Exam At Time of Discharge Vitals: 08/20/25 0326 08/20/25 0705 08/20/25 0709 08/20/25 0807 BP: 103/64 (!) 89/46 (!) 99/48 82/60 BP Location: Left arm Right arm Left arm Left arm Patient Position: Lying Lying Lying Lying Pulse: 53 50 58 Resp: 14 16 Temp: 36.7 ??C (98 ??F) 36.7 ??C (98.1 ??F) TempSrc: Axillary Oral SpO2: 94% 95% Weight: Height: Physical Exam Constitutional: General: She is not in acute distress. Appearance: She is obese. HENT: Head: Normocephalic and atraumatic. Mouth/Throat: Mouth: Mucous membranes are moist. Pharynx: Oropharynx is clear. Eyes: Conjunctiva/sclera: Conjunctivae normal. Pulmonary: Effort: Pulmonary effort is normal. No respiratory distress. Abdominal: General: There is distension. Tenderness: There is abdominal tenderness. Musculoskeletal: Right lower leg: No edema. Left lower leg: No edema. Skin: General: Skin is warm and dry. Capillary Refill: Capillary refill takes less than 2 seconds. Neurological: General: No focal deficit present. Mental Status: She is alert. Psychiatric: Mood and Affect: Mood normal. Behavior: Behavior normal. Discharge Disposition/Condition Disposition: Nursing facility (specify) [facility] Condition: Stable (s/sx potential problems absent or manageable) I spent >30 minutes of patient care and instruction time in preparation for this discharge. Siri Eaton MD Family & Community Medicine, PGY-2 Cosigned by Sushma Meza MD at 08/20/2025 6:16 PM EDT Associated attestation - Sushma Meza MD - 08/20/2025 6:16 PM EDT I saw and evaluated the patient. I discussed the case with the medical student and resident/fellow and agree with the findings and plan as documented. I personally participated in the management of the patient. * Significant Event - Maria Dolores Ontiveros APRN, DNP - 08/20/2025 9:11 AM EDT Primary team notified [facility] that patient is discharging back to [facility] today. Will change her scheduled paracentesis and thoracentesis to outpatient procedures. Arrival time 0945 on 08/22/25. Maria Dolores Ontiveros APRN, DNP * Assessment & Plan Note - Sushma Meza MD - 08/20/2025 8:15 AM EDT Associated Problem(s): Hepatic encephalopathy (CMS/HCC) (Resolved 08/20/2025) - 08/19 Concern for hepatic encephalopathy with hallucinations and recent altered mental status in the setting of poor sleep. Ammonia level ordered and improved from prior to presenting. -08/20 Ammonia level decreasing (133 on 08/17 down to 77 on 08/19). Hallucinations absent today on rounds, and she is Aox4. Continue lactulose 20 TID. * Assessment & Plan Note - Sushma Meza MD - 08/20/2025 8:15 AM EDT Associated Problem(s): Hx of spontaneous bacterial peritonitis -08/19 Recurrent abdominal fluid accumulation increases risk for SBP. Due to cross coverage with ceftriaxone, hold ciprofloxacin today and resume tomorrow. Continue home rifaximin, and lactulose todayand restart ciprofloxacin tomorrow. -08/20 Restart ciprofloxacin 500mg today with rifaximin and lactulose to resume home SBP regimen. * Assessment & Plan Note - Sushma Meza MD - 08/20/2025 8:15 AM EDT Associated Problem(s): JONATHAN treated with BiPAP - 08/19 Poor sleep and comfort issues with hospital bipap. Her family is bringing home bipap today. -08/20 Patient reports better sleep and comfort with use of home CPAP * Assessment & Plan Note - Sushma Meza MD - 08/20/2025 8:15 AM EDT Associated Problem(s): Type 2 diabetes mellitus, with long-term current use of insulin -08/19 Glucose remains in the mid 200s, she has been taking her home dose of glargine in the morning. Start glargine at night with 24 units tonight. Pending response to timing change, reassess insulinregimen. -08/20 Glucose remains in the high 200s this morning despite changing glargine 24 to nightly yesterday. Continue with current insulin regimen and reassess efficacy at follow up. * Assessment & Plan Note - Sushma Meza MD - 08/20/2025 8:15 AM EDT Associated Problem(s): Pleural effusion associated with hepatic disorder - 08/19 Decreased bibasilar breath sounds with increased shortness of air. Chest X-Ray to determine need for repeat thoracentesis. -08/20 Chest xray revealed right sided pleural effusion and left trace pleural effusion. Thoracentesis scheduled for 08/22 with IR. * Assessment & Plan Note - Sushma Meza MD - 08/20/2025 8:15 AM EDT Associated Problem(s): Cirrhosis of liver with ascites -08/19 Abdominal distension with history of weekly therapeutic paracentesis. Abdominal ultrasound to determine need for therapeutic paracentesis reports moderate volume ascites. -08/20 Abdominal ultrasound revealed moderate ascites. Paracentesis scheduled for 08/22 with IR. * Assessment & Plan Note - Sushma Meza MD - 08/20/2025 8:15 AM EDT Associated Problem(s): Hyponatremia with excess extracellular fluid volume -08/19 Sodium of 125 with clinical signs of fluid overload. Likely chronic, placed 2L per day fluid restriction. -08/20 Sodium up to 132 from 125 yesterday with 2L fluid restriction. * Assessment & Plan Note - Sushma Meza MD - 08/20/2025 8:15 AM EDT Associated Problem(s): Acute kidney injury superimposed on stage 3b chronic kidney disease (Resolved 08/20/2025) -08/19 Creatinine up to 2.66 from baseline of 1.2 with eGFR of 19. Balance extracellular fluid overload with adequate intravascular volume status, 2L per day fluid restriction and trend creatinine. -08/20 Creatinine down to 2.42 from 2.66 yesterday. Continue current daily fluid intake and track creatinine as CARLOTTA resolves. * Care Plan - Laverne Booth RN - 08/20/2025 7:57 AM EDT Problem: Adult Inpatient Plan of Care Goal: Plan of Care Review Outcome: Ongoing, Progressing Flowsheets (Taken 08/20/2025 0754) Progress: improving Outcome Evaluation: pt will continue to advance towards plan of care, redirecting pt as needed Plan of Care Reviewed With: patient Goal: Patient-Specific Goal (Individualized) Outcome: Ongoing, Progressing Flowsheets (Taken 08/20/2025753) Patient/Family-Specific Goals (Include Timeframe): pt will remain free from falls/ injury throughout the day shift with use of bed alarm at all times when a care tker is not in the room Individualized Care Needs: pt safety Anxieties, Fears or Concerns: none stated Goal: Absence of Hospital-Acquired Illness or Injury Outcome: Ongoing, Progressing Intervention: Identify and Manage Fall Risk Flowsheets (Taken 08/20/2025753) Safety Promotion/Fall Prevention: activity supervised safety round/check completed Intervention: Prevent Skin Injury Flowsheets (Taken 08/20/2025753) Body Position: weight shifting Skin Protection: protective footwear used Intervention: Prevent and Manage VTE (Venous Thromboembolism) Risk Flowsheets (Taken 08/20/2025725) VTE Prevention/Management: bilateral SCDs (sequential compression devices) on Intervention: Prevent Infection Flowsheets (Taken 08/20/2025753) Infection Prevention: hand hygiene promoted rest/sleep promoted Goal: Optimal Comfort and Wellbeing Outcome: Ongoing, Progressing Intervention: Monitor Pain and Promote Comfort Flowsheets (Taken 08/20/2025753) Pain Management Interventions: pain management plan reviewed with patient/caregiver rest Intervention: Provide Person-Centered Care Flowsheets (Taken 08/20/2025753) Trust Relationship/Rapport: care explained choices provided emotional support provided empathic listening provided questions answered thoughts/feelings acknowledged reassurance provided questions encouraged Problem: Fall Injury Risk Goal: Absence of Fall and Fall-Related Injury Outcome: Ongoing, Progressing Intervention: Identify and Manage Contributors Flowsheets (Taken 08/20/2025753) Medication Review/Management: medications reviewed Self-Care Promotion: independence encouraged Intervention: Promote Injury-Free Environment Flowsheets (Taken 08/20/2025753) Safety Promotion/Fall Prevention: activity supervised safety round/check completed Problem: Skin Injury Risk Increased Goal: Skin Health and Integrity Outcome: Ongoing, Progressing Intervention: Optimize Skin Protection Flowsheets (Taken 08/20/2025753) Activity Management: activity adjusted per tolerance Pressure Reduction Techniques: frequent weight shift encouraged Skin Protection: protective footwear used Head of Bed (HOB) Positioning: HOB at 30-45 degrees Intervention: Promote and Optimize Oral Intake Flowsheets (Taken 08/20/2025753) Oral Nutrition Promotion: physical activity promoted Problem: Diabetes Goal: Blood Glucose Level Within Target Range Outcome: Ongoing, Progressing Intervention: Optimize Glycemic Control Flowsheets (Taken 08/20/2025 0754) Hyperglycemia Management: blood glucose monitored Problem: Confusion Acute Goal: Optimal Cognitive Function Outcome: Ongoing, Progressing Intervention: Minimize Contributing Factors Flowsheets (Taken 08/20/2025 0754) Sensory Stimulation Regulation: care clustered Reorientation Measures: calendar in view clock in view Communication Support Strategies: active listening utilized * Progress Notes - Sushma Meza MD - 08/20/2025 7:26 AM EDT FAMILY MEDICINE Daily Progress Note Patient: Monika Zimmer 65 y.o. Subjective Monika Zimmer is a 65 y.o. female who was seen and evaluated on 08/20/2025. Currently on HospitalDay Hospital Day: 3. NAEON. No concerns from Nursing. This AM: Ms Zimmer's reports she feels weaker than usual, which she feels may be related to her bloodpressure. She remains feeling short of air, but reports it is not worse than yesterday. She reportsbetter sleep overnight with use of home CPAP. She denies visual hallucinations today. She had 1 bowel movement yesterday. She endorses mild abdominal tenderness. Review of systems is negative other than as in HPI. Objective Visit Vitals BP (!) 99/48 Pulse 58 Temp 36.7 ??C (98.1 ??F) Resp 14 Ht 1.651 m (5' 5 ) Wt 84.4 kg (186 lb 1.1 oz) SpO2 95% BMI 30.96 kg/m?? OB Status Hysterectomy Smoking Status Never BSA 1.97 m?? Physical Exam HENT: Head: Normocephalic. Eyes: Extraocular Movements: Extraocular movements intact. Cardiovascular: Rate and Rhythm: Normal rate and regular rhythm. Pulmonary: Comments: Decreased bibasilar breath sounds. Abdominal: General: A surgical scar is present. There is distension. Palpations: Abdomen is soft. There is fluid wave. Tenderness: There is abdominal tenderness. Skin: General: Skin is warm and dry. Neurological: General: No focal deficit present. Mental Status: She is alert. Psychiatric: Mood and Affect: Mood normal. Labs and cultures: Reviewed and significant for Creatinine down to 2.42 from 2.66, Sodium up to 132from 129. T-bili down to 1.5 from 1.8. Imaging/diagnostic studies: Reviewed and significant for: Chest X-ray: Right pleural effusion and left trace pleural effusion. Abdominal Ultrasound: Moderate abdominal ascites. Assessment/Plan Assessment: Monika Zimmer is a 65 y.o. female with PMH significant for COPD, CKD stage IIIb, CAD, diabetic neuropathy, dysphagia,obesity, JONATHAN, RA, SLE, HLD, T2DM, cirrhosis with ascites, esophageal varices, portal HTN, IBS admitted on 08/18/2025 for urinary tract infection with CARLOTTA and hepatic encephalopathy now on Hospital Day: 3 requiring ongoing hospitalization for paracentesis scheduled on 08/22. Currently, the patient's condition is fair based on resolved confusion and hallucinations, resolving CARLOTTA, but residual abdominal ascites and pleural effusion, with borderline hypotension and hypoalbuminemia. Assessment & Plan Hepatic encephalopathy (CMS/HCC) - 08/19 Concern for hepatic encephalopathy with hallucinations and recent altered mental status in the setting of poor sleep. Ammonia level ordered and improved from prior to presenting. -08/20 Ammonia level decreasing (133 on 08/17 down to 77 on 08/19). Hallucinations absent today on rounds, and she is Aox4. Continue lactulose 20 TID. Hx of spontaneous bacterial peritonitis -08/19 Recurrent abdominal fluid accumulation increases risk for SBP. Due to cross coverage with ceftriaxone, hold ciprofloxacin today and resume tomorrow. Continue home rifaximin, and lactulose todayand restart ciprofloxacin tomorrow. -08/20 Restart ciprofloxacin 500mg today with rifaximin and lactulose to resume home SBP regimen. JONATHAN treated with BiPAP - 08/19 Poor sleep and comfort issues with hospital bipap. Her family is bringing home bipap today. -08/20 Patient reports better sleep and comfort with use of home CPAP Type 2 diabetes mellitus, with long-term current use of insulin -08/19 Glucose remains in the mid 200s, she has been taking her home dose of glargine in the morning. Start glargine at night with 24 units tonight. Pending response to timing change, reassess insulinregimen. -08/20 Glucose remains in the high 200s this morning despite changing glargine 24 to nightly yesterday. Continue with current insulin regimen and reassess efficacy at follow up. Pleural effusion associated with hepatic disorder - 08/19 Decreased bibasilar breath sounds with increased shortness of air. Chest X-Ray to determine need for repeat thoracentesis. -08/20 Chest xray revealed right sided pleural effusion and left trace pleural effusion. Thoracentesis scheduled for 08/22 with IR. Cirrhosis of liver with ascites -08/19 Abdominal distension with history of weekly therapeutic paracentesis. Abdominal ultrasound to determine need for therapeutic paracentesis reports moderate volume ascites. -08/20 Abdominal ultrasound revealed moderate ascites. Paracentesis scheduled for 08/22 with IR. Hyponatremia with excess extracellular fluid volume -08/19 Sodium of 125 with clinical signs of fluid overload. Likely chronic, placed 2L per day fluid restriction. -08/20 Sodium up to 132 from 125 yesterday with 2L fluid restriction. Acute kidney injury superimposed on stage 3b chronic kidney disease -08/19 Creatinine up to 2.66 from baseline of 1.2 with eGFR of 19. Balance extracellular fluid overload with adequate intravascular volume status, 2L per day fluid restriction and trend creatinine. -08/20 Creatinine down to 2.42 from 2.66 yesterday. Continue current daily fluid intake and track creatinine as CARLOTTA resolves. Resolved Hospital Problems: - Acute confusion with hallucinations F: PO and Maintenance: Normal [id number] fluid restriction per day. E: Monitor and replace as necessary N: Adult diet Diet texture: Regular; Carbohydrate restriction: Consistent Carb 2 (80 gm max/meal); Dietary fluid restriction / 24h: 2000 ml Fluid GI: Hold home omeprazole. DVT prophylaxis: SCDs INR 2 w/o anticoagulation. Lines and Tubes: pIV CODE: DNR - Ok to intubate SOCIAL: Mcfp PT/OT: no needs anticipated at this time Consultants: Interventional radiology scheduled for thoracentesis/paracentesis on 08/22. Disposition: Medically Ready for Discharge: Today [X] Resolve Acute confusion and hallucinations [X] Complete course of IV ceftriaxone for suspected UTI [X] Follow up outpatient Thoracentesis and Paracentesis Scheduled for 08/22 with IR. Discharge planned for today with return to [facility]. Arash Cheng, MS3 * Care Plan - Neyda Cosme - 08/19/2025 10:45 PM EDT Problem: Adult Inpatient Plan of Care Goal: Plan of Care Review Outcome: Ongoing, Progressing Flowsheets (Taken 08/19/20252243) Progress: no change Plan of Care Reviewed With: patient Goal: Patient-Specific Goal (Individualized) Outcome: Ongoing, Progressing Flowsheets (Taken 08/19/20251999) Patient/Family-Specific Goals (Include Timeframe): patient will remian free from injury during shift Individualized Care Needs: safety Anxieties, Fears or Concerns: none voiced Goal: Absence of Hospital-Acquired Illness or Injury Outcome: Ongoing, Progressing Intervention: Identify and Manage Fall Risk Flowsheets (Taken 08/19/20252243) Safety Promotion/Fall Prevention: activity supervised Intervention: Prevent Skin Injury Flowsheets (Taken 08/19/20251999) Body Position: weight shifting Intervention: Prevent and Manage VTE (Venous Thromboembolism) Risk Flowsheets (Taken 08/19/20251999) VTE Prevention/Management: bilateral lower extremity SCDs (sequential compression devices) on Intervention: Prevent Infection Flowsheets (Taken 08/19/20252243) Infection Prevention: rest/sleep promoted single patient room provided Goal: Optimal Comfort and Wellbeing Outcome: Ongoing, Progressing Intervention: Monitor Pain and Promote Comfort Flowsheets (Taken 08/19/20251932) Pain Management Interventions: pain management plan reviewed with patient/caregiver Intervention: Provide Person-Centered Care Flowsheets (Taken 08/19/20252243) Trust Relationship/Rapport: care explained questions answered Problem: Fall Injury Risk Goal: Absence of Fall and Fall-Related Injury Outcome: Ongoing, Progressing Intervention: Identify and Manage Contributors Flowsheets (Taken 08/19/20252243) Medication Review/Management: medications reviewed Self-Care Promotion: independence encouraged Intervention: Promote Injury-Free Environment Flowsheets (Taken 08/19/20252243) Safety Promotion/Fall Prevention: activity supervised Problem: Skin Injury Risk Increased Goal: Skin Health and Integrity Outcome: Ongoing, Progressing Intervention: Optimize Skin Protection Flowsheets (Taken 08/19/20251999) Activity Management: activity adjusted per tolerance Intervention: Promote and Optimize Oral Intake Flowsheets (Taken 08/19/20252243) Oral Nutrition Promotion: rest periods promoted Problem: Diabetes Goal: Blood Glucose Level Within Target Range Outcome: Ongoing, Progressing Intervention: Optimize Glycemic Control Flowsheets (Taken 08/19/2025 8563) Hyperglycemia Management: blood glucose monitored correctional insulin given * Consults - Maria Dolores Ontiveros, ADRI, ANGELLA - 08/19/2025 2:57 PM EDTAssociated Order(s): IP CONSULT TO INTERVENTIONAL RADIOLOGY 08/19/25 Patient: Monika Zimmer Date of : 1960/65 y.o. Requesting Service: Sushma Meza MD Chief Complaint: Encephalopathy Reason for Consult: Consulted for paracentesis and thoracentesis History of Present Illness: Monika Zimmer is a 65 y.o. 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 She was admitted yesterday for encephalopathy. Patient was scheduled for outpatient paracentesis and thoracentesis on 08/22/25. VIR was consulted for inpatient para/thora. History and admission information obtained from chart review of primary and consulting teams notation, as well as speaking directly to consulting team. The following portions of the chart were reviewed this encounter and updated as appropriate: Review of Systems: Deferred due to patient location at [facility] Past Medical History Pertinent Negatives[1] Surgical History[2] Social History[3] Family History: Personally reviewed and noncontributory. Allergies[4] Objective: All laboratory, images, tracings, and vital sign data are personally reviewed unless otherwise noted. VITALS: Temp: [36.4 ??C (97.6 ??F)-36.9 ??C (98.5 ??F)] 36.4 ??C (97.6 ??F) Heart Rate: [51-83] 61 Resp: [16-17] 16 BP: (94-112)/(45-71) 106/60 FiO2 (%): [30 %] 30 % Weight: 90.4 kg (199 lb 4.7 oz) Body mass index is 30.96 kg/m??. I & O SUMMARY I/O last 3 completed shifts: In: 240 (2.8 mL/kg) [P.O.:240] Out: 300 (3.6 mL/kg) [Urine:300 (0.1 mL/kg/hr)] Weight: 84.4 kg I/O this shift: In: 240 [P.O.:240] Out: - MEDICATIONS: Current Medications[5] LABS (PAST 18Labs in last 18 hours) CBC WBC 3.57 (L) Hb 8.8 (L) Plt 58 (L) Hct 25.5 (L) INR 2.0 (H) PTT ?? Anti-Xa ?? BMP Na 129 (L) Cl 99 BUN 47 (H) Glu 284 (H) K 3.9 Co2 21 (L) Cr 2.66 (H) Ca 8.0 (L) Mg 1.9 Phos 4.0 Lactate ?? LFT AST 35 AlkPhos 161 (H) T Prot 6.0 (L) ALK 13 Bili 1.8 (H) Alb ?? D.Bili ?? HOURS) EXAM: Deferred due to patient location at [facility] Radiographics/Diagnostics: Imaging personally reviewed and reviewed with attending. === 08/17/25 === CT NEURO OUTSIDE IMAGES === 08/18/25 === XR CHEST 1 VIEW - Narrative - CLINICAL INDICATION: eval for thora TECHNIQUE: XR CHEST 1 VIEW COMPARISON: Chest x-ray OSH 08/17/2025 Chest x-ray 08/08/2025 FINDINGS: Stable cardiomediastinal silhouette. Similar appearance of moderate bibasilar atelectasis. Low lungvolumes. Moderate right-sided pleural effusion, slightly decreased in size from most recent comparison chest radiograph. Probable trace left-sided effusion. No new focal consolidation. No pneumothorax. - Impression - Moderate bibasilar atelectasis with a moderate right pleural effusion and trace left effusion. CRITICAL RESULT: No. COMMUNICATION: Per this written report. By electronically signing this report, I, the attending physician, attest that I have personally reviewed the images/data for the above examination(s) and agree with the final edited report. Drafted by Otto Harp MD on 08/19/2025 1:27 PM Final report signed by Golden Jin MD on 08/19/2025 2:43 PM Echo, Adult Transthoracic Complete Result Date: [...] is no recent study available for direct [id number] comparison. Assessment & Plan: Decompensated cirrhosis, MASH Ascites Hepatic hydrothorax EV Encephalopathy - MELD 3.0: 33 at 08/19/2025 1:30 AM MELD-Na: 30 at 08/19/2025 1:30 AM Calculated from: Serum Creatinine: 2.66 mg/dL at 08/19/2025 1:06 AM Serum Sodium: 129 mmol/L at 08/19/2025 1:06 AM Total Bilirubin: 1.8 mg/dL at 08/19/2025 1:06 AM Serum Albumin: 3.1 g/dL at 08/19/2025 1:06 AM INR(ratio): 2 at 08/19/2025 1:30 AM Age at listin years Sex: Female at 08/19/2025 1:30 AM - HCC: No identified liver lesions on last imaging, 04/2025 AFP 4 = 05/07/25 - EV: EGD 02/05/25 - two medium varices in lower third of esophagus with 2 bands placed; single ulcer in lower third of esophagus with clean base, sara III - HE: history of encephalopathy requiring intubation Lactulose at home, [facility] - Ascites/hepatic hydrothorax: Routine paracentesis/thoracentesis - Difficulty with titration of diuretics due to kidney function - INR 2.0 (H), Plt 58 (L) - VSS, Afebrile PLAN: - Will perform image guided paracentesis and right thoracentesis on 08/22/25 - Primary team to place specimen orders - Will consent prior to procedure - Hold anticoagulation at RI evening prior to procedure - Goal INR <3 I spent 32 minutes on this encounter; which involved review/interpretation of diagnostics and reports, obtaining and/or reviewing separately obtained history, communicating findings, reviewing labs/imaging, documentation in EMR and formulating subsequent treatment plan. Thank you for allowing us to participate in the care of this patient. Maria Dolores Ontiveros, STOCK CLERK [employer], DNP Interventional Radiology [phone] [1] Past Medical History: Diagnosis Date ADHD (attention deficit hyperactivity disorder) Allergic Anxiety disorder, unspecified Anxiety Bleeding gums Blood in urine Cataract Chronic kidney disease Cirrhosis (CMS/HCC) Colon cancer screening 09/20/2019 Added automatically from request for surgery [id number] Coronary artery disease Depression 1996 Diabetes mellitus [...] 1979 BLADDER SURGERY N/A Bladder surgery from [facility] BREAST BIOPSY 2011 BREAST SURGERY 2010 BUNIONECTOMY Right CATARACT EXTRACTION Bilateral 2016 CHOLECYSTECTOMY 1980 ESOPHAGOGASTRODUODENOSCOPY HYSTERECTOMY N/A Hysterectomy from [facility] KNEE SURGERY Bilateral ORAL SURGERY N/A Oral surgery from [facility] OTHER SURGICAL HISTORY 2015 ROOT CANAL WISDOM TOOTH EXTRACTION [3] Social History Tobacco Use Smoking status: Never Passive exposure: Never Smokeless tobacco: Never Vaping Use Vaping status: Never Used Substance Use Topics Alcohol use: Not Currently Drug use: Never [4] Allergies Allergen Reactions Penicillins Other - please document in the comment field Doesn't remember [5] Current Facility-Administered Medications: bumetanide (Bumex) tablet 0.5 mg, 0.5 mg, Oral, Once per day on Tuesday, Barrie Shabazz MD, 0.5 mg at 08/19/25912 calcitriol (Rocaltrol) capsule 0.25 mcg, 0.25 mcg, Oral, Daily, Barrie Shabazz MD, 0.25 mcg at 08/19/25912 calcium carbonate (Tums) chewable tablet 750 mg, 750 mg, Oral, Daily, Barrie Matias MD, 750mg at 08/19/25912 carboxymethylcellulose PF (Refresh Plus) 0.5 % ophthalmic solution 1 drop, 1 drop, Both Eyes, PRN, Barrie Shabazz MD cefTRIAXone (Rocephin) 2 g in sodium chloride 0.9% 100 mL IVPB (vial adapter required), 2 g, Intravenous, q24h, Barrie Shabazz MD, Last Rate: 220 mL/hr at 08/18/25 1543, 2 g at 08/18/25 154 cetirizine (ZyrTEC) tablet 10 mg, 10 mg, Oral, Daily, Barrie Shabazz MD, 10 mg at 08/19/25912 cholecalciferol (Vitamin D-3) tablet 1,000 Units, 1,000 Units, Oral, Daily, Barrie Shabazz MD, 1,000 Units at 08/19/25912 glucose (Glutose) 40 % oral gel 15-30 grams of glucose, 15-30 grams of glucose, Sublingual, q15 minPRN OR dextrose 10 % (D10W) bolus 125 mL, 125 mL, Intravenous, q15 min PRN OR dextrose 10 %(D10W) bolus 250 mL, 250 mL, Intravenous, q15 min PRN OR glucagon (human recombinant) injection1 mg, 1 mg, Intramuscular, q15 min PRN, Barrie Shabazz MD insulin glargine-yfgn 100 UNIT/ML injection 24 Units, 24 Units, Subcutaneous, Nightly, Krista Pruett MD insulin lispro (Admelog) 100 units/mL injection - Correction - Resistant Dose, 0-10 Units, Subcutaneous, TID with meals, Barrie Shabazz MD, 10 Units at 08/19/25 1157 insulin lispro (Admelog) injection - Correction - Nighttime Dose, 0-3 Units, Subcutaneous, Twice atnight, Barrie Shabazz MD, 1 Units at 08/19/25 0325 lactulose (Chronulac) 10 GM/15ML solution 20 g, 20 g, Oral, TID, Barrie Shabazz MD, 20 g at 08/19/25 0912 midodrine (Proamatine) tablet 15 mg, 15 mg, Oral, TID, Barrie Shabazz MD, 15 mg at 08/19/25 0914 prochlorperazine (Compazine) tablet 5 mg, 5 mg, Oral, q8h PRN, Barrie Shabazz MD, 5 mg at 08/19/25 0335 rifAXIMin (Xifaxan) tablet 550 mg, 550 mg, Oral, BID, Barrie Shabazz MD, 550 mg at 08/19/25 0913 senna (Senokot) tablet 8.6 mg, 1 tablet, Oral, Nightly, Barrie Shabazz MD, 8.6 mg at 08/18/25 2135 Insert peripheral IV, , , Once AND Saline lock IV, , , Once AND sodium chloride 0.9 % flush10 mL, 10 mL, Intravenous, q12h, 10 mL at 08/18/25 1309 AND sodium chloride 0.9 % flush 10 mL, 10 mL, Intravenous, PRN, Barrie Matias MD * Assessment & Plan Note - Siri Eaton MD - 08/19/2025 2:10 PM EDT Associated Problem(s): Hepatic encephalopathy (CMS/HCC) (Resolved 08/20/2025) Concern for hepatic encephalopathy with hallucinations and recent altered mental status in the setting of poor sleep. Ammonia level ordered and improved from prior to presenting. * Assessment & Plan Note - Siri Eaton MD - 08/19/2025 2:10 PM EDT Associated Problem(s): Hx of spontaneous bacterial peritonitis Recurrent abdominal fluid accumulation increases risk for SBP. Due to cross coverage with ceftriaxone, hold ciprofloxacin today and resume tomorrow. Continue home rifaximin, and lactulose today and restart ciprofloxacin tomorrow. * Assessment & Plan Note - Siri Eaton MD - 08/19/2025 2:10 PM EDT Associated Problem(s): Cirrhosis of liver with ascites Abdominal distension with history of weekly therapeutic paracentesis. Abdominal ultrasound to determine need for therapeutic paracentesis reports moderate volume ascites. * Assessment & Plan Note - Siri Eaton MD - 08/19/2025 2:10 PM EDT Associated Problem(s): Hyponatremia with excess extracellular fluid volume Sodium of 125 with clinical signs of fluid overload. Likely chronic, placed 2L per day fluid restriction. * Assessment & Plan Note - Siri Eaton MD - 08/19/2025 1:44 PM EDT Associated Problem(s): JONATHAN treated with BiPAP Poor sleep and comfort issues with hospital bipap. Her family is bringing home bipap today. * Assessment & Plan Note - Siri Eaton MD - 08/19/2025 1:44 PM EDT Associated Problem(s): Type 2 diabetes mellitus, with long-term current use of insulin Glucose remains in the mid 200s, she has been taking her home dose of glargine in the morning. Start glargine at night with 24 units tonight. Pending response to timing change, reassess insulin regimen. * Assessment & Plan Note - Siri Eaton MD - 08/19/2025 1:44 PM EDT Associated Problem(s): Pleural effusion associated with hepatic disorder Decreased bibasilar breath sounds with increased shortness of air. Chest X-Ray to determine need for repeat thoracentesis. * Assessment & Plan Note - Siri Eaton MD - 08/19/2025 1:44 PM EDT Associated Problem(s): Acute kidney injury superimposed on stage 3b chronic kidney disease (Resolved 08/20/2025) Creatinine up to 2.66 from baseline of 1.2 with eGFR of 19. Balance extracellular fluid overload with adequate intravascular volume status, 2L per day fluid restriction and trend creatinine. * Care Plan - Eryn Muñoz - 08/19/2025 12:40 PM EDT Problem: Adult Inpatient Plan of Care Goal: Plan of Care Review Outcome: Ongoing, Progressing Flowsheets (Taken 08/19/2025 1237) Progress: no change Plan of Care Reviewed With: patient Goal: Patient-Specific Goal (Individualized) Outcome: Ongoing, Progressing Flowsheets (Taken 08/19/2025 1237) Patient/Family-Specific Goals (Include Timeframe): Pt will report adequate pain control this shift. Individualized Care Needs: pain management Anxieties, Fears or Concerns: pain Goal: Absence of Hospital-Acquired Illness or Injury Outcome: Ongoing, Progressing Intervention: Identify and Manage Fall Risk Flowsheets (Taken 08/19/2025 1237) Safety Promotion/Fall Prevention: activity supervised fall prevention program maintained nonskid shoes/slippers when out of bed Intervention: Prevent Skin Injury Flowsheets (Taken 08/19/2025 1237) Body Position: weight shifting Skin Protection: protective footwear used incontinence pads utilized Intervention: Prevent and Manage VTE (Venous Thromboembolism) Risk Flowsheets (Taken 08/19/2025 1237) VTE Prevention/Management: bilateral lower extremity SCDs (sequential compression devices) on Intervention: Prevent Infection Flowsheets (Taken 08/19/2025 1237) Infection Prevention: hand hygiene promoted single patient room provided Goal: Optimal Comfort and Wellbeing Outcome: Ongoing, Progressing Intervention: Monitor Pain and Promote Comfort Flowsheets (Taken 08/19/2025 1237) Pain Management Interventions: pain management plan reviewed with patient/caregiver Intervention: Provide Person-Centered Care Flowsheets (Taken 08/19/2025 1237) Trust Relationship/Rapport: care explained questions encouraged choices provided reassurance provided Problem: Fall Injury Risk Goal: Absence of Fall and Fall-Related Injury Outcome: Ongoing, Progressing Intervention: Identify and Manage Contributors Flowsheets (Taken 08/19/2025 1237) Medication Review/Management: medications reviewed Self-Care Promotion: independence encouraged Intervention: Promote Injury-Free Environment Flowsheets (Taken 08/19/2025 1237) Safety Promotion/Fall Prevention: activity supervised fall prevention program maintained nonskid shoes/slippers when out of bed Problem: Skin Injury Risk Increased Goal: Skin Health and Integrity Outcome: Ongoing, Progressing Intervention: Optimize Skin Protection Flowsheets (Taken 08/19/2025 1237) Activity Management: activity adjusted per tolerance Skin Protection: protective footwear used incontinence pads utilized Head of Bed (HOB) Positioning: HOB at 30 degrees Intervention: Promote and Optimize Oral Intake Flowsheets (Taken 08/19/2025 1237) Nutrition Interventions: food preferences provided Problem: Diabetes Goal: Blood Glucose Level Within Target Range Outcome: Ongoing, Not Progressing Intervention: Optimize Glycemic Control Flowsheets (Taken 08/19/2025 1240) Hyperglycemia Management: blood glucose monitored correctional insulin given insulin dose adjusted * Progress Notes - Venessa Brown - 08/19/2025 12:34 PM EDT Case Management Adult Initial Progress Note Monika Zimmer 65 y.o. female CSN: [id number] Admission: 08/18/2025 5:21 AM Primary Problem: Hepatic encephalopathy (CMS/HCC) Check Grader reviewed chart and spoke with patient at bedside to complete this Initial Case Management Assessment. Pt is currently residing at [facility] in [facility]. 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 No Secondary Emergency Contact: Lj Bernal Mobile Relation: Sister Mother: Karime Singletary Mobile Insurance: Primary Visit Coverage Payer Plan Sponsor Code Group Number Group Name HUMANA MEDICARE HUMANA MEDICARE [id number] Primary Visit Coverage Subscriber Subscriber ID Subscriber Name Subscriber SSN Subscriber Address [id number] Monika Zimmer Janet [id number] [address] [facility] [place] [address] Secondary Visit Coverage Payer Plan Sponsor Code Group Number Group Name [facility] MEDICAID TRADITIONAL Secondary Visit Coverage Subscriber Subscriber ID Subscriber Name Subscriber SSN Subscriber Address [id number] MONIKA ZIMMER F [id number] [address] [facility] [place] [address] Patient information: Primary Caregiver: Other (Comment) Support System: Immediate family, Extended family Daily Living Activities: Functional Status: Moderate assistance Living Arrangements: Mcfp Type of Residence: prison[facility]residential care [address] [address] Smoker in the Home?: No Current DME: Equipment Currently Used at Home: Cpap, walker, rollator Current DME Provider: [facility] Income Information: Income Source: Disabled Income/Expense Information: Expenses exceed income Housing Circumstances-Z Codes: Housing Circumstances (select all that apply): Low Income (101-300% Federal Poverty Guidlines) - Z596 Anticipated Discharge Date: TBD Patient's Discharge Goal: To return to her facility Assistance Available at Discharge: Pt lives in a SNF/LTC Discharge Transport: Will need an ambulance or [facility] Follow Up Transport: Home Health / Home Infusion / Outpatient Dialysis Services: Current DME Provider: [facility] Living Will/Advance Directive/Power of Truck Body Builder /Guardian: Advance Directive: Patient has advance directive, copy in chart Information Provided on Healthcare Directives: Yes Pre-existing DNR/DNI Order: Yes, notify physician for order Patient Requests Assistance: No Additional Comments: Venessa Brown * Consults - Jocelin Urban, RD - 08/19/2025 11:04 AM EDT Adult Nutrition Evaluation Note Monika Zimmer 65 y.o. female CSN: [id number] Room/Bed 631/[facility] Nutrition evaluation type: screen Reason for evaluation: nurse consult Hospital course: 65 y/o F with PMH significant for COPD, CKD stage IIIB, CAD, diabetic neuropathy, dysphagia, obesity, JONATHAN on BiPAP nightly, RA, SLE, HLD, T2DM, cirrhosis with ascites, esophageal varices, portal hypertension, and IBS C/D admitted 08/18 with concerns for UTI and decompensated cirrhosis. Noted that pt regularly undergoes paracentesis +/- thoracentesis which was most recently on 08/15 (Right thoracentesis with 1.4 L removed, Paracentesis with 3 L removed). +hepatic encephalopathy. +CARLOTTA. Past medical/ surgical history: Past Medical History[1] Surgical History[2] Social history: Additional comments: 08/19: Unable to speak with pt at bedside, she was with other clinical staff, attempt x2. Vitals and Basic Assessment: BP: 106/60 Temp: 36.4 ??C (97.6 ??F) Oxygen Therapy: Supplemental oxygen O2 Delivery Method: Nasal cannula [place] Coma Scale Score: 15 Edd Scale Score: 18 Most Recent BM Date: 08/17/25 GI Symptoms: None Skin: intact Allergies: NKFA Medications: Current Scheduled Medications[3] Current Continuous Medications[4] Current PRN Medications[5] Meds were reviewed: Yes Labs: Lab Results Component Value Date GLUCOSE 284 (H) 08/19/2025 CALCIUM 8.0 (L) 08/19/2025 NA 129 (L) 08/19/2025 K 3.9 08/19/2025 CO2 21 (L) 08/19/2025 CL 99 08/19/2025 BUN 47 (H) 08/19/2025 CREATININE 2.66 (H) 08/19/2025 PHOS 4.0 08/19/2025 MG 1.9 08/19/2025 HGBA1C 7.3 (H) 05/23/2025 +POCT Glu: 257-408 mg/dL (08/18-08/19) +hyponatremia Lab Results Component Value Date PROT 7.0 11/15/2024 ALBUMIN 3.1 (L) 08/19/2025 Albumin is a negative acute-phase reactant, therefore it is not a good indicator of nutrition status. Lab Results Component Value Date ALT 13 08/19/2025 AST 35 08/19/2025 GGT 23 10/22/2024 ALKPHOS 161 (H) 08/19/2025 BILITOT 1.8 (H) 08/19/2025 Anthropometrics: Height: 165.1 cm (5' 5 ) Weight: 84.4 kg (186 lb 1.1 oz) BMI (Calculated): 30.96 Weight Evaluation: Obese-Class 1 (BMI 30-34.9) [place] Body Weight (kg): 56.8 kg Percent [place] Body Weight: 149 Adjusted Body Weight (kg): 64 Wt Readings from Last 10 Encounters: 08/19/25 84.4 kg (186 lb 1.1 oz) 08/15/25 86.2 kg (190 lb 0.6 oz) 08/08/25 86.2 kg (190 lb 0.6 oz) 08/01/25 85.3 kg (188 lb 0.8 oz) 07/25/25 85.1 kg (187 lb 9.8 oz) 07/18/25 84.7 kg (186 lb 11.7 oz) 07/11/25 79.5 kg (175 lb 4.3 oz) 07/09/25 80.6 kg (177 lb 11.1 oz) 06/25/25 79.9 kg (176 lb 2.4 oz) 06/20/25 83.8 kg (184 lb 11.9 oz) Estimated Needs: Kcal/ K-35 Kcal Provided: 8065-9307 Kcal Needs Based On: Adjusted weight (64 kg) Gm Protein/ Kg : 1.2-1.5 Protein Provided: 77-96 Protein Needs Based On: Adjusted weight (64 kg) Fluid Provided: per team Metabolic Cart Study Results: Current Nutrition Intake: Diet Supplements: None Diet Order: Adult Diet Diet Texture: Regular Adult Carbohydrate Restriction: Consistent CHO 2 ([id number] Deniz, 80 g/meal) Adult Sodium Restriction: (-) Adult Fluid Restriction / 24 hr: 2000 ml fluid Percent Meals Eaten (%): 33% avg x 1 meal Diet Experience and Nutrition History: Diet Education Provided: Will monitor Pertinent home medications: Medications Ordered Prior to Encounter[6] Advent needs: Nutrition Focused Physical Exam: Unable to Complete Exam: Unable to access exam locations Physical exam performed on (date): pending Assessment of Malnutrition: Nutrition Problem: Increased nutrient needs (kcal and protein) related to prom as evidenced by decompensated cirrhosis. Status of Nutrition Diagnosis: New Swallowing difficulty related to dysphagia as evidenced by pt report of difficulty with swallowing on admission. Status of Nutrition Diagnosis: New Predicted suboptimal energy intake related to SOB as evidenced by 33% x 1 meal this admission. Status of Nutrition Diagnosis: New Nutrition Interventions and Recommendations: - Continue regular, CHO 2 diet as tolerated - Fluid restriction (2000 mL) per MD team - Order Boost GC BID (474 mL) - Pt with hx of dysphagia, may benefit from SOFTWARE PROGRAMMER consult this admission to determine the safest PO diet. - Monitor and replace elytes prn - Insulin regimen per team - Recommend obtaining weight 1-2x weekly; rec obtaining post paracentesis for most accurate dry weight. - Please document meal intake in flowsheet daily Nutrition Monitoring and Goals: - Will monitor PO intake, weight, skin, labs, nutrition status - Elytes WNL - BG will remain <200 mg/dL this admission - Pt will consume >75% of meal intake - Pt will maintain dry body weight throughout hospital admission Acuity Level: 2 Jocelin Urban, RD, LD [1] Past Medical History: Diagnosis Date ADHD (attention deficit hyperactivity disorder) Allergic Anxiety disorder, unspecified Anxiety Bleeding gums Blood in urine Cataract Chronic kidney disease Cirrhosis (CMS/HCC) Colon cancer screening 09/20/2019 Added automatically from request for surgery [id number] Coronary artery disease Depression 1996 Diabetes mellitus [...] 1979 BLADDER SURGERY N/A Bladder surgery from [facility] BREAST BIOPSY 2011 BREAST SURGERY 2010 BUNIONECTOMY Right CATARACT EXTRACTION Bilateral 2016 CHOLECYSTECTOMY 1979 ESOPHAGOGASTRODUODENOSCOPY HYSTERECTOMY N/A Hysterectomy from [facility] KNEE SURGERY Bilateral ORAL SURGERY N/A Oral surgery from [facility] OTHER SURGICAL HISTORY 2014 ROOT CANAL WISDOM TOOTH EXTRACTION [3] bumetanide, 0.5 mg, Oral, Once per day on Tuesday calcitriol, 0.25 mcg, Oral, Daily calcium carbonate, 750 mg, Oral, Daily cefTRIAXone, 2 g, Intravenous, q24h cetirizine, 10 mg, Oral, Daily cholecalciferol, 1,000 Units, Oral, Daily ciprofloxacin, 500 mg, Oral, Daily insulin glargine-yfgn, 24 Units, Subcutaneous, Daily insulin lispro, 0-10 Units, Subcutaneous, TID with meals insulin lispro, 0-3 Units, Subcutaneous, Twice at night lactulose, 20 g, Oral, TID midodrine, 15 mg, Oral, TID rifAXIMin, 550 mg, Oral, BID senna, 1 tablet, Oral, Nightly sodium chloride, 10 mL, Intravenous, q12h [4] [5] PRN medications: carboxymethylcellulose PF, glucose OR dextrose 10 % OR dextrose 10 % OR glucagon (human recombinant), prochlorperazine, Insert peripheral IV AND Saline lock IV AND sodium chloride AND sodium chloride [6] No current facility-administered medications on file prior to encounter. Current Outpatient Medications on File Prior to Encounter Medication Sig Dispense Refill bumetanide (Bumex) 0.5 MG tablet Take 1 tablet by mouth 3 times a week. M, W, F calcitriol (Rocaltrol) 0.25 MCG capsule Take 1 capsule by mouth daily. 30 capsule 0 calcium carbonate EX (Tums E-X) 750 MG chewable tablet Chew 1 tablet (750 mg) 1 (one) time each day. carboxymethylcellulose PF (Refresh Plus) 0.5 % ophthalmic solution Administer 1 drop into both eyesas needed for dry eyes. cetirizine (ZyrTEC) 10 MG tablet Take 1 tablet by mouth daily. 30 tablet 0 cholecalciferol (Vitamin D-3) 25 MCG (1000 UT) tablet Take 1 tablet by mouth daily. 90 tablet 2 ciprofloxacin (Cipro) 500 MG tablet Take 1 tablet by mouth daily. 90 tablet 1 ergocalciferol (Vitamin D-2) 1.25 MG (95377 UT) capsule Take 1 capsule by mouth 1 time per week. 4 capsule 0 insulin glargine-yfgn 100 UNIT/ML injection vial Inject 24 Units under the skin daily. (Patient taking differently: Inject 24 Units under the skin every morning.) insulin lispro (Admelog) 100 UNIT/ML injection Inject 0-10 Units under the skin 3 times a day with meals. See After Visit Summary for instructions on how to take your insulin. (Patient taking differently: Inject 0-12 Units under the skin 3 times a day with meals. Sliding scale 0 149 or less , 2 units 150-200, 4 units 201-250, 6 units 251-300, 8 units 301-350, 10 units 351-400, 401 and greater [address]) lactulose (Chronulac) 10 GM/15ML solution Take 30 mL by mouth 3 times a day. 2700 mL 11 Magnesium Oxide, Laxative, 500 MG tablet Take 1 tablet by mouth daily. 90 tablet 3 midodrine (Proamatine) 5 MG tablet Take 3 [...] 2 times a day. 60 tablet 11 senna (Senokot) 8.6 MG tablet Take 1 tablet by mouth nightly. [DISCONTINUED] cholecalciferol (Vitamin D3) 25 MCG (1000 UT) tablet Take 1 tablet by mouth daily. [DISCONTINUED] Abaloparatide (Tymlos) 3120 MCG/1.56ML solution pen-injector Inject 80 mcg under theskin daily. 1.56 mL 2 [DISCONTINUED] benzonatate (Tessalon) 100 MG capsule Take 1 capsule by mouth 3 times a day as needed for cough. Do not crush or chew. [DISCONTINUED] bisacodyl (Dulcolax) 10 MG suppository Insert 1 suppository into the rectum daily asneeded for constipation. [DISCONTINUED] capsaicin (Zostrix-HP) 0.075 % topical cream Apply 1 Application topically daily as needed (Leg and foot cramps). [DISCONTINUED] hydrOXYzine HCl (Atarax) 25 MG tablet Take 0.5 tablets by mouth at night as needed for itching. [DISCONTINUED] insulin lispro (Admelog) 100 UNIT/ML injection Inject 0-3 Units under the skin 2 times a night. See After Visit Summary for instructions on how to take your insulin. [DISCONTINUED] melatonin tablet Take 1 tablet by mouth at night as needed for sleep. [DISCONTINUED] polyethylene glycol (Miralax) 17 g packet Take 17 g by mouth 2 times a day. [DISCONTINUED] [place] 0.6 MG/0.6ML solution auto-injector Inject 0.6 mg under the skin 1 time asneeded (for extreme hypoglycemia) for up to 1 dose. 0.6 mL 2 [DISCONTINUED] zinc sulfate (Zincate) 220 (50 Zn) MG capsule Take 1 capsule by mouth in the morningand 1 capsule before bedtime. 60 capsule 2 * Consults - Rosaline Quiroz - 08/19/2025 9:15 AM EDT Pastoral Care Note Associate Director Financial Aid on rounds made initial visit to this recent (re-)admit, who shared about her life and medical journey. She currently lives in a [place]iary and (with help from her sister and mother) her house has been emptied to be sold. She expressed appreciation for items being set aside for her grand-daughter (12) who she would like to see more often. Patient expressed the desire to complete advancefuneral planning 'so that my son and others do not have that to do' -- though she also said she hopes to live to see her grand-daughter grow up. As requested, prayers were provided and employment program representative will plan to visit on shift tomorrow. Referral From: Associate Director Financial Aid Initiated Pastoral Care Provided For: Patient Patient Profile: Consult Reasons: Initial visit Spiritual Assessment: Support Systems/ Spiritual Resources: Nicolasa, Family, Prayer Spiritual Needs: Emotional support, Prayer, Spiritual support Spiritual Issues: Chronic pain/ illness, Isolation/ loneliness, Family concerns Interventions: Interventions Provided: Emotional support, Life review, Prayer, Spiritual support, Supportive Listening, Introduced Patient/Family to Associate Director Financial Aid Services, Consulted with care team Pastoral Care Outcomes: Patient Outcomes: Expresses acceptance, Is knowledgeable about [facility] [employer] [facility], Demonstrates and/or verbalizes increased comfort, Endorses increased sense of connection, Expresses intent to participate/comply in plan of care, Is functionally engaged in meaning making, Appreciative of Associate Director Financial Aid Support * Progress Notes - Siri Eaton MD - 08/19/2025 8:27 AM EDT FAMILY MEDICINE Daily Progress Note Patient: Moinka Zimmer 65 y.o. Subjective Monika Zimmer is a 65 y.o. female who was seen and evaluated on 08/19/2025. Currently on HospitalDay Hospital Day: 2. NAEON. No concerns from Nursing. This AM: Monika is sitting in bed, eating breakfast. She has no acute pain or concerns this morning. She is alert and oriented to self, place, time, and event. She reports seeing things she knows arenot really there including a flower, foot prints, and car tires on the wall. She finds this distressing, and has been experiencing this since presentation to the ED. She states she feels mildly short of breath, and that she can tell she has fluid accumulating in her abdomen and thorax. She has required PRN supplemental oxygen throughout her stay, but is not on oxygen at the time of interview this morning, exhibiting so signs of acute hypoxia. She also reports mild pain in the right lower abdomen. She endorses chronic abdominal pain due to distention, but denies acute worsening of pain, fever, or systemic symptoms. She states that she did not sleep well overnight due to intermittent coughing, and issues with the hospital CPAP. She is bringing her home CPAP today to improve sleep quality. Review of Systems Constitutional: Negative for fever. Respiratory: Positive for cough and shortness of breath. Cardiovascular: Negative for chest pain and leg swelling. Gastrointestinal: Positive for abdominal distention. Psychiatric/Behavioral: Positive for confusion, hallucinations and sleep disturbance. Objective Visit Vitals BP 106/60 Pulse 61 Temp 36.4 ??C (97.6 ??F) Resp 16 Ht 1.651 m (5' 5 ) Wt 84.4 kg (186 lb 1.1 oz) SpO2 99% BMI 30.96 kg/m?? OB Status Hysterectomy Smoking Status Never BSA 1.97 m?? Physical Exam Constitutional: Appearance: She is ill-appearing. HENT: Head: Normocephalic and atraumatic. Eyes: Extraocular Movements: Extraocular movements intact. Pupils: Pupils are equal, round, and reactive to light. Cardiovascular: Rate and Rhythm: Normal rate and regular rhythm. Pulmonary: Breath sounds: Examination of the right-lower field reveals decreased breath sounds. Examination ofthe left-lower field reveals decreased breath sounds. Decreased breath sounds present. Abdominal: General: A surgical scar is present. Bowel sounds are normal. There is distension. Palpations: Abdomen is soft. Tenderness: There is generalized abdominal tenderness. Comments: Her abdomen is mildly tender diffusely. Musculoskeletal: Cervical back: Neck supple. Labs and cultures: Reviewed and significant for Cr 2.66, 2.67 on admission. Ammonia of 77 on 08/19 improved from 100 on 08/17. Imaging/diagnostic studies: Review[facility] and [facility] Region Other Result Date: 08/19/2025 Impression: Moderate volume of generalized ascites. CRITICAL RESULT: No. COMMUNICATION: Per this written report. Drafted by Mahendra Castro MD on 08/19/2025 1:48 PM Final report signed by Mahendra Castro MD on 08/19/2025 1:49 PM Assessment/Plan Assessment: Monika Zimmer is a 65 y.o. female with PMH significant for COPD, CKD stage IIIb, CAD, diabetic neuropathy, dysphagia,obesity, JONATHAN, RA, SLE, HLD, T2DM, cirrhosis with ascites, esophageal varices, portal HTN, IBS admitted on 08/18/2025 for urinary tract infection with CARLOTTA and hepatic encephalopathy now on Hospital Day: 2 requiring ongoing hospitalization for IV antibiotics and CARLOTTA resolution. Currently, the patient's condition is fair based on the fact that her mental status has improved from days prior and she remains afebrile; however, she does have ongoing hallucinations and exhibits signs of recurring fluid accumulation in the pleural and peritoneal spaces. Assessment & Plan Hepatic encephalopathy (CMS/HCC) Concern for hepatic encephalopathy with hallucinations and recent altered mental status in the setting of poor sleep. Ammonia level ordered and improved from prior to presenting. Hx of spontaneous bacterial peritonitis Recurrent abdominal fluid accumulation increases risk for SBP. Due to cross coverage with ceftriaxone, hold ciprofloxacin today and resume tomorrow. Continue home rifaximin, and lactulose today and restart ciprofloxacin tomorrow. JONATHAN treated with BiPAP Poor sleep and comfort issues with hospital bipap. Her family is bringing home bipap today. Type 2 diabetes mellitus, with long-term current use of insulin Glucose remains in the mid 200s, she has been taking her home dose of glargine in the morning. Start glargine at night with 24 units tonight. Pending response to timing change, reassess insulin regimen. Pleural effusion associated with hepatic disorder Decreased bibasilar breath sounds with increased shortness of air. Chest X-Ray to determine need for repeat thoracentesis. Cirrhosis of liver with ascites Abdominal distension with history of weekly therapeutic paracentesis. Abdominal ultrasound to determine need for therapeutic paracentesis reports moderate volume ascites. Hyponatremia with excess extracellular fluid volume Sodium of 125 with clinical signs of fluid overload. Likely chronic, placed 2L per day fluid restriction. Acute kidney injury superimposed on stage 3b chronic kidney disease Creatinine up to 2.66 from baseline of 1.2 with eGFR of 19. Balance extracellular fluid overload with adequate intravascular volume status, 2L per day fluid restriction and trend creatinine. Suspected UTI: Complete 3 day course of ceftriaxone IV for suspected UTI, (last dose today 08/19). Resolved Hospital Problems: Acute confusion - She has progressed from disoriented at presentation to OSH, and is now oriented to place, time, event, and self. F: PO, carb consistent 2 diet, L per day fluid restriction. E: Monitor and replace as necessary N: Adult diet Diet texture: Regular; Carbohydrate restriction: Consistent Carb 2 (80 gm max/meal); Dietary fluid restriction / 24h: 2000 ml Fluid GI: Holding home omeprazole DVT prophylaxis: SCDs, INR 2 w/o medication Lines and Tubes: pIV CODE: DNR - Ok to intubate SOCIAL: Mcfp PT/OT: no needs anticipated at this time Consultants: Consult interventional radiology pending imaging results for thoracentesis/paracentesis. Disposition: Medically Ready for Discharge:Anticipated in 2-4 Days Finish 3 day course of ceftriaxone, track creatinine for CARLOTTA resolution, determine need for thoracentesis/paracentesis, and resolve hallucinations prior to discharge. Discharge planned for return to [facility]. Arash Cheng, MS3 . . . . . . . . . . . . . . . . . . I personally saw and examined this patient with the medical student. I have edited and agree with all of the above history, findings, and assessment & plan. Siri Eaton MD Family Medicine, PGY-2 [facility] Cosigned by Sushma Meza MD at 08/19/2025 9:00 PM EDT Associated attestation - Sushma Meza MD - 08/19/2025 9:00 PM EDT I saw and evaluated the patient with the resident/fellow. I discussed the case with the resident/fellow and agree with the findings and plan as documented. * Care Plan - Melissa Carney RN - 08/19/2025 4:22 AM EDT Problem: Adult Inpatient Plan of Care Goal: Plan of Care Review Outcome: Ongoing, Progressing Flowsheets (Taken 08/19/2025 9973) Progress: improving Outcome Evaluation: Pt now confused at this moment, taking her lactulose Plan of Care Reviewed With: patient Goal: Patient-Specific Goal (Individualized) Outcome: Ongoing, Progressing Flowsheets (Taken 08/18/20251999) Patient/Family-Specific Goals (Include Timeframe): Pt will be kept safe and comfortable thorughout the shift. Individualized Care Needs: Pt will be offered pain and sleep medication as ordered. Anxieties, Fears or Concerns: Pain control and sleep Goal: Absence of Hospital-Acquired Illness or Injury Outcome: Ongoing, Progressing Intervention: Identify and Manage Fall Risk Flowsheets (Taken 08/18/20251999) Safety Promotion/Fall Prevention: activity supervised assistive device/personal items within reach clutter-free environment maintained fall prevention program maintained lighting adjusted mobility aid in reach nonskid shoes/slippers when out of bed room organization consistent safety round/check completed Intervention: Prevent Skin Injury Flowsheets (Taken 08/19/2025 0413) Body Position: weight shifting Skin Protection: incontinence pads utilized Intervention: Prevent and Manage VTE (Venous Thromboembolism) Risk Flowsheets (Taken 08/19/2025399 by Lida Zimmer) VTE Prevention/Management: bilateral lower extremity SCDs (sequential compression devices) on Intervention: Prevent Infection Flowsheets (Taken 08/19/2025 041) Infection Prevention: environmental surveillance performed equipment surfaces disinfected hand hygiene promoted single patient room provided rest/sleep promoted personal protective equipment utilized Goal: Optimal Comfort and Wellbeing Outcome: Ongoing, Progressing Intervention: Monitor Pain and Promote Comfort Flowsheets (Taken 08/19/2025 041) Pain Management Interventions: declines Intervention: Provide Person-Centered Care Flowsheets (Taken 08/19/2025412) Trust Relationship/Rapport: care explained choices provided questions encouraged reassurance provided emotional support provided thoughts/feelings acknowledged empathic listening provided questions answered Problem: Fall Injury Risk Goal: Absence of Fall and Fall-Related Injury Outcome: Ongoing, Progressing Intervention: Identify and Manage Contributors Flowsheets (Taken 08/19/2025 041) Medication Review/Management: medications reviewed Self-Care Promotion: independence encouraged Intervention: Promote Injury-Free Environment Flowsheets (Taken 08/18/20251999) Safety Promotion/Fall Prevention: activity supervised assistive device/personal items within reach clutter-free environment maintained fall prevention program maintained lighting adjusted mobility aid in reach nonskid shoes/slippers when out of bed room organization consistent safety round/check completed Problem: Skin Injury Risk Increased Goal: Skin Health and Integrity Outcome: Ongoing, Progressing Intervention: Optimize Skin Protection Flowsheets Taken 08/19/2025412 Pressure Reduction Techniques: frequent weight shift encouraged Pressure Reduction Devices: positioning supports utilized Skin Protection: incontinence pads utilized Head of Bed (HOB) Positioning: HOB at 30 degrees Taken 08/18/20251999 Activity Management: activity adjusted per tolerance activity encouraged previous patient education reinforced Intervention: Promote and Optimize Oral Intake Flowsheets (Taken 08/19/2025 0413) Oral Nutrition Promotion: rest periods promoted Nutrition Interventions: frequent small meals provided * Care Plan - Nargis Hou RN - 08/18/2025 12:06 PM EDT Problem: Adult Inpatient Plan of Care Goal: Plan of Care Review Flowsheets (Taken 08/18/2025 1204) Progress: no change Outcome Evaluation: arrived to unit. alert and oriented to place, person and situation. family at bedside. call light within reach. Plan of Care Reviewed With: patient Goal: Patient-Specific Goal (Individualized) Flowsheets (Taken 08/18/2025 1153) Patient/Family-Specific Goals (Include Timeframe): pt will remain free from injury this shift Individualized Care Needs: safety Anxieties, Fears or Concerns: none stated Goal: Absence of Hospital-Acquired Illness or Injury Intervention: Identify and Manage Fall Risk Flowsheets (Taken 08/18/2025 1204) Safety Promotion/Fall Prevention: activity supervised Intervention: Prevent Skin Injury Flowsheets (Taken 08/18/2025 1204) Body Position: weight shifting Intervention: Prevent and Manage VTE (Venous Thromboembolism) Risk Flowsheets (Taken 08/18/2025 1204) VTE Prevention/Management: other (see comments) Note: No current orders Intervention: Prevent Infection Flowsheets (Taken 08/18/2025 1204) Infection Prevention: single patient room provided Goal: Optimal Comfort and Wellbeing Intervention: Monitor Pain and Promote Comfort Flowsheets (Taken 08/18/2025 1204) Pain Management Interventions: relaxation techniques promoted Intervention: Provide Person-Centered Care Flowsheets (Taken 08/18/2025 1204) Trust Relationship/Rapport: questions answered questions encouraged care explained choices provided Problem: Fall Injury Risk Goal: Absence of Fall and Fall-Related Injury Intervention: Identify and Manage Contributors Flowsheets (Taken 08/18/2025 1204) Medication Review/Management: medications reviewed Intervention: Promote Injury-Free Environment Flowsheets (Taken 08/18/2025 1204) Safety Promotion/Fall Prevention: activity supervised * H&P - Barrie Shabazz MD - 08/18/2025 10:48 AM EDT Images from the original note were not included. Family Medicine History and Physical Note Patient: Monika Zimmer Admit Date: 08/18/2025 Admitting Attending: Sushma Meza MD Chief Complaint: Chief Complaint Patient presents with Shortness of Breath HPI: Monika Zimmer is a 65 y.o. female with PMH significant for COPD, CKD stage IIIB, coronary arterydisease, diabetic neuropathy, dysphagia, obesity, JONATHAN on BiPAP nightly, RA, SLE, HLD, type 2 DM, cirrhosis with ascites, esophageal varices, portal hypertension, IBS C/D presenting for concerns of UTI and decompensated cirrhosis. Per chart review, undergoes regular paracentesis +/- thoracentesis which was most recently on 08/15 (Right thoracentesis with 1.4 L removed, Paracentesis with 3 L removed). The next day the patient was complaining of abdominal discomfort which is normal for her following paracentesis but nursing facility she is at had been mentioning progressive altered mental statusfor the past 2 days and this was sent to OSH. At the OSH there were concerns for low blood pressureand UTI and decompensated cirrhosis was discovered, and ultrasound-guided abdominal paracentesis with total of 6.5 L of clear yellow fluid removed and administered 37.5 g of IV albumin x1 postprocedure. Given Rocephin x1 fur suspected UTI and transferred to [facility] ED for evaluation, which was then transferred to [facility] ED Course: Vitals POA: Pulse 51, respiratory rate 18, BP 108/31, 95% on room air. Lab work pertinent for WBC 3.25, hemoglobin 9.6, platelet count 71 K, PT 23.5, INR 2.1. VBG showed pH 7.41, pCO2 35, PO2 25, HC03 22. On CMP glucose 203, creatinine 2.67 (baseline 1.1-1.3), AST 45, total bilirubin 3.3, alkaline phosphatase 134, magnesium 1.7, phosphorus 4.7. Lactate 2.1 Outside Hospital on 08/17: Ultrasound-guided abdominal paracentesis with total of 6.5 L of clear yellow fluid removed and administered 37.5 g of IV albumin x1 postprocedure, awaiting lab analysis of fluid OSH imaging: Chest x-ray, CT neuro imaging, CT thoracic imaging. Will get records scanned into chart Family Medicine consulted for UTI and decompensated cirrhosis admitted under attending Dr. Meza. ROS: Review of Systems Additional review of systems negative except per HPI. History: Past Medical History[1] Problem List[2] Surgical History[3] Family History[4] Social History Socioeconomic History Marital status: Spouse [...] 0 min Stress: Stress Concern Present (05/29/2025) [employer] [place] [employer] - Occupational Stress Questionnaire Feeling of Stress: Very much Social Connections: Socially Isolated (05/29/2025) Social Connection and Isolation Panel Frequency of Communication with Friends and Family: More than three times a week Frequency of Social Gatherings with Friends and Family: Once a week Attends [employer] Services: Never Active Member of Clubs or [...] 0 Homeless in the Last Year: No Allergies[5] Medications: Home Medications: Current Outpatient Medications Medication Instructions bumetanide (BUMEX) 0.5 mg, 3 times weekly calcitriol (ROCALTROL) 0.25 mcg, Oral, Daily carboxymethylcellulose PF (Refresh Plus) 0.5 % ophthalmic solution 1 drop, Both Eyes, As needed cetirizine (ZYRTEC) 10 mg, Oral, Daily cholecalciferol (VITAMIN D-3) 1,000 Units, Oral, Daily ciprofloxacin (CIPRO) 500 mg, Oral, Daily ergocalciferol (VITAMIN D-2) 50,000 Units, Oral, Weekly insulin glargine-yfgn 24 Units, Subcutaneous, Daily insulin lispro (ADMELOG) 0-10 Units, Subcutaneous, 3 times daily with meals, See After Visit Summary for instructions on how to take your insulin. lactulose (CHRONULAC) 20 g, Oral, 3 times daily Magnesium Oxide, Laxative, 500 MG tablet 1 tablet, Oral, Daily midodrine (PROAMATINE) 15 mg, Oral, 3 times daily Multiple Vitamins-Minerals (COMPLETE WOMENS PO) 1 tablet, Daily prochlorperazine (COMPAZINE) 5 mg, Oral, Every 8 hours PRN rifAXIMin (XIFAXAN) 550 mg, Oral, 2 times daily senna (SENOKOT) 8.6 mg, Oral, Nightly Tums E-X 750 mg, Oral, Daily Current Medications: Current Scheduled Medications[6] Current PRN Medications[7] Current Continuous Medications[8] Objective: Visit Vitals BP 91/61 Pulse 65 Temp 36.5 ??C (97.7 ??F) Resp 19 Ht 1.651 m (5' 5 ) Wt 90.4 kg (199 lb 4.7 oz) SpO2 98% BMI 33.16 kg/m?? OB Status Hysterectomy Smoking Status Never BSA 2.04 m?? Physical Exam Eyes: Conjunctiva/sclera: Conjunctivae normal. Pupils: Pupils are equal, round, and reactive to light. Cardiovascular: Rate and Rhythm: Normal rate and regular rhythm. Pulses: Normal pulses. Heart sounds: Murmur heard. Systolic murmur is present with a grade of 1/6. Pulmonary: Effort: Pulmonary effort is normal. Breath sounds: Normal breath sounds. Abdominal: General: There is distension. Palpations: Abdomen is soft. Tenderness: There is abdominal tenderness in the epigastric area and left upper quadrant. Musculoskeletal: Right lower leg: No edema. Left lower leg: No edema. Skin: General: Skin is warm and dry. Capillary Refill: Capillary refill takes less than 2 seconds. Neurological: General: No focal deficit present. Comments: AAO to self and place, not oriented to time Psychiatric: Attention and Perception: Attention normal. Mood and Affect: Mood normal. Behavior: Behavior normal. Behavior is cooperative. Cognition and Memory: Memory is impaired. Laboratory: Heme: Lab Results Component Value Date WBC 3.25 (L) 08/18/2025 RBC 3.00 (L) 08/18/2025 HGB 9.6 (L) 08/18/2025 HCT 27.3 (L) 08/18/2025 PLT 71 (L) 08/18/2025 MCV 91 08/18/2025 MCH 32.0 08/18/2025 MCHC 35.2 08/18/2025 RDW 17.7 (H) 08/18/2025 NRBC 0.0 08/18/2025 Lab Results Component Value Date WBC 3.25 (L) 08/18/2025 NEUTOPHILPCT 67 08/18/2025 LYMPHOPCT 16 08/18/2025 MONOPCT 11 08/18/2025 EOSPCT 5 08/18/2025 Coagulation: Lab Results Component Value Date INR 2.1 (H) 08/18/2025 Renal: Lab Results Component Value Date NA 135 (L) 08/18/2025 K 4.1 08/18/2025 CL 101 08/18/2025 CO2 19 (L) 08/18/2025 BUN 41 (H) 08/18/2025 CREATININE 2.67 (H) 08/18/2025 GLUCOSE 203 (H) 08/18/2025 CALCIUM 7.8 (L) 08/18/2025 MG 1.7 (L) 08/18/2025 PHOS 4.7 (H) 08/18/2025 Liver: Lab Results Component Value Date AST 45 (H) 08/18/2025 ALT 17 08/18/2025 BILITOT 3.3 (H) 08/18/2025 Glucose: No results found for: PGLU Lab Results Component Value Date HGBA1C 7.3 (H) 05/23/2025 Microbiology Results No results found for the last 48 hours. ? Imaging: Assessment & Plan: Monika Zimmer is a 65 y.o. female with PMH significant for COPD, CKD stage IIIB, coronary arterydisease, diabetic neuropathy, dysphagia, obesity, JONATHAN on BiPAP nightly, RA, SLE, HLD, type 2 DM, cirrhosis with ascites, esophageal varices, portal hypertension, IBS C/D admitted for UTI and decompensated cirrhosis with hepatic encephalopathy. #Decompensated Cirrhosis of Liver with Ascites #History of Spontaneous bacterial Peritonitis #Hepatic Encephalopathy -Vitals: Pulse 57, RR 19, BP 97/58. 97%O2 room air -Physical Examination: Abdominal distension with mild epigastric and LUQ pain. Patients mentation better now compared to when initially going to hospital according to patient family in the room. Currently AAOx2 self and place -Labs: WBC 3.25, hemoglobin 9.6, platelet count 71 K, PT 23.5, INR 2.1. VBG showed pH 7.41, pCO2 35, PO2 25, HC03 22. On CMP glucose 203, creatinine 2.67 (baseline 1.1-1.3), AST 45, total bilirubin 3.3, alkaline phosphatase 134, magnesium 1.7, phosphorus 4.7. Lactate 2.1 -Imaging: Outside imaging includes: Chest x-ray, CT neuro imaging, CT thoracic imaging -Outside Hospital on 08/17: Ultrasound-guided abdominal paracentesis with total of 6.5 L of clear yellow fluid removed and administered 37.5 g of IV albumin x1 postprocedure, awaiting lab analysis of fluid. No thoracentesis performed - Undergoes paracentesis +/- thoracentesis routinely with IR on ; 08/15/25: Right thoracentesis with 1.4 L removed, Paracentesis with 3 L removed - Follows with transplant, no plans for current transplant since [facility] to patient. Next appointment is on 08/20 PLAN - admitted under attending Dr. Meza for additional workup - Daily CBC, CMP, MG, Phos - Daily PT/INR - Obtain Paracentesis fluid analysis results from OSH - Continue home SBP prophylaxis with lactulose 20g TID, Rifaximin 550mg BID, and Ciprofloxacin - Continue home Midodrine 15mg PO TID. Continue to monitor BP - Cont home Bumex 0.5 mg by mouth 3 times weekly on Tuesday, Tuesday, Tuesday for swelling. Can consider increasing if uncontrolled - Consider consulting IR on 08/19 if believe repeat paracentesis +/- thoracentesis necessary #CARLOTTA #CKD Stage 3b #Suapected UTI -Cr 2.67 (BL 1.1-1.3) - OSH UA showing results for UTI and given Rocephin x1 at OSH PLAN - Serum osmol, Urine protein creatinine ratio to determine etiology of CARLOTTA - CTX 2g IV for two more days to complete UTI treatment for total of 3 days (last dose on 08/19) - Continue to monitor #Neutropenia #Pancytopenia -Baseline WBC is 4.0 and baseline RBC was 3.0 - On admission WBC 3.25, RBC 3.00; ANC 2.14 - Was referred to Rheumatology after last discharge in June 2025 but has not followed up PLAN - Continue to monitor #Type II DM Home regimen: Insulin glargine 24 units daily and lispro TID with sliding scale PLAN - Glargine 24u nightly with resistant SSI - Carb controlled diet - Hypoglycemia protocol #COPD #JONATHAN - Continue home BiPAP nightly. Patient bringing in own machine. RT to manage #Hypomagnesemia -1.7 om admission. Home mag ox 400mg daily PLAN - Continue to monitor - Replete as needed Chronic Medical Conditions - GERD: Holding home omeprazole and continuing home Tums 750 mg daily - Allergies: Continue home sertraline 10 mg by mouth daily - Vitamin-D deficiency: Continue home calcitriol 0.25 mcg daily, D3 1000 unit tablet daily - Nausea: Compazine 5mg PO q8h PRN - CAD: Crestor being held since most recent nephrology visit. Continue to hold - Constipation: Continue home senna and Miralax F: PO E: Monitor and replace as necessary N: Adult diet Diet texture: Regular; Carbohydrate restriction: Consistent Carb 2 (80 gm max/meal) GI: Home Tums DVT prophylaxis: SCD's Lines and Tubes: pIV CODE: DNR - Ok to intubate SOCIAL: prison PT/OT: Not needed at this time DISPO/Discharge Criteria: [ ] Completion of Antibiotics for UTI [ ] Clinical improvement Barrie Wells MD Family Medicine PGY-2 [1] Past Medical History: Diagnosis Date ADHD (attention deficit hyperactivity disorder) Allergic Anxiety disorder, unspecified Anxiety Bleeding gums Blood in urine Cataract Chronic kidney disease Cirrhosis (CMS/HCC) Colon cancer screening 09/20/2019 Added automatically from request for surgery [id number] Coronary artery disease Depression 1995 Diabetes mellitus type 2 in obese 04/22/2015 Diabetic nephropathy ([facility]/HCC) Dry mouth Epigastric pain 08/02/2019 ETD (eustachian [...] Asthma Unspecified osteoarthritis, unspecified site Arthritis [2] Patient Active Problem List Diagnosis Alopecia Chronic obstructive pulmonary disease (CMS/HCC) Chronic kidney disease, stage 3b (CMS/HCC) Coronary artery disease of [place] artery of [place] heart with stable angina pectoris (CMS/HCC) Diabetic peripheral neuropathy (CMS/HCC) Dysphagia Heartburn JONATHAN treated with BiPAP Physical debility Rheumatoid arthritis with positive rheumatoid factor (CMS/HCC) Spondylosis of lumbar region without myelopathy or radiculopathy Lupus (systemic lupus erythematosus) (CMS/HCC) Hyperlipidemia Type 2 diabetes mellitus, with long-term current use of insulin (CMS/HCC) Secondary esophageal varices without bleeding (CMS/HCC) Portal hypertensive gastropathy (CMS/HCC) Cirrhosis of liver with ascites (CMS/HCC) Irritable bowel syndrome with both constipation and diarrhea Carpal tunnel syndrome Hx of spontaneous bacterial peritonitis Moderate protein-calorie malnutrition (CMS/HCC) Caregiver not readily available Pleural effusion associated with hepatic disorder Self-care deficit Neutropenia Pancytopenia Serum ammonia increased (CMS/HCC) 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 Hepatic encephalopathy (CMS/HCC) [3] Past Surgical History: Procedure Laterality Date APPENDECTOMY 1979 BLADDER SURGERY N/A Bladder surgery from [facility] BREAST BIOPSY 2011 BREAST SURGERY 2009 BUNIONECTOMY Right CATARACT EXTRACTION Bilateral 2016 CHOLECYSTECTOMY 1979 ESOPHAGOGASTRODUODENOSCOPY HYSTERECTOMY N/A Hysterectomy from [facility] KNEE SURGERY Bilateral ORAL SURGERY N/A Oral surgery from [facility] OTHER SURGICAL HISTORY 2015 ROOT CANAL WISDOM TOOTH EXTRACTION [4] Family History Problem Relation Name Age [...] Sister Lj Bernal Recurrent Infections Sister Lj Gabe Dementia Maternal Grandmother Christine Mayelin Alzheimer's disease [...] Son Viral Zimmer Diabetes Son Viral Zimmer [5] Allergies Allergen Reactions Penicillins Other - please document in the comment field Doesn't remember [6] [START ON 08/19/2025] bumetanide, 0.5 mg, Oral, Once per day on Tuesday calcitriol, 0.25 mcg, Oral, Daily calcium carbonate, 750 mg, Oral, Daily cefTRIAXone, 2 g, Intravenous, q24h cetirizine, 10 mg, Oral, Daily cholecalciferol, 1,000 Units, Oral, Daily ciprofloxacin, 500 mg, Oral, Daily [START ON 08/19/2025] insulin glargine-yfgn, 24 Units, Subcutaneous, Daily insulin lispro, 0-10 Units, Subcutaneous, TID with meals insulin lispro, 0-3 Units, Subcutaneous, Twice at night lactulose, 20 g, Oral, TID magnesium hydroxide, 15 mL, Oral, Daily midodrine, 15 mg, Oral, TID rifAXIMin, 550 mg, Oral, BID senna, 1 tablet, Oral, Nightly sodium chloride, 10 mL, Intravenous, q12h [7] PRN medications: carboxymethylcellulose PF, glucose OR dextrose 10 % OR dextrose 10 % OR glucagon (human recombinant), prochlorperazine, Insert peripheral IV AND Saline lock IV AND sodium chloride AND sodium chloride [8] Cosigned by Sushma Meza MD at 08/19/2025 10:01 AM EDT Associated attestation - Sushma Meza MD - 08/19/2025 10:01 AM EDT I saw and evaluated the patient with the resident/fellow. I discussed the case with the resident/fellow and agree with the findings and plan as documented. * ED Provider Notes - Johnny Wagner MD - 08/18/2025 5:21 AM EDT Images from the original note were not included. - HPI Chief Complaint Patient presents with Shortness of Breath HPI Monika Zimmer is a 64 y.o. female with PMH significant for COPD, CKD stage IIIB, coronary arterydisease, diabetic neuropathy, dysphagia, obesity, JONATHAN on BiPAP nightly, RA, SLE, HLD, type 2 DM, cirrhosis with ascites, esophageal varices, portal hypertension, IBS C/D who presents to ED from OSH for concerns of UTI and decompensated cirrhosis. Follows with [facility] for regular paracentesis, most recently on 08/15. Was seen at OSH today for concerns of confusion. Patient is currently living in a nursing facility in his had progressive AMS for past 2 days. Was taken to OSH where concerns for low blood pressure, UTI and decompensated cirrhosis was discovered. Given rocephin and transferred to for evaluation. On arrival, patient endorses she does not feel like herself and does not know how she got here. She does state she has not been taking her lactulose as prescribed. Denies abdominal pain, nausea, vomiting. Patient History Past Medical History[1] Surgical History[2] Family History[3] Social History[4] Allergies: Allergies[5] Physical Exam ED Triage Vitals Temp Pulse Resp BP -- -- -- -- SpO2 Temp src Heart Rate Source Patient Position -- -- -- -- BP Location FiO2 (%) -- -- Physical Exam Constitutional: General: She is not in acute distress. Appearance: She is ill-appearing. HENT: Head: Normocephalic. Comments: No facial swelling Mouth/Throat: Mouth: Mucous membranes are moist. Pharynx: Oropharynx is clear. Cardiovascular: Rate and Rhythm: Normal rate. Pulmonary: Effort: Pulmonary effort is normal. No respiratory distress. Breath sounds: Normal air entry. Comments: Speaking full sentences. Symmetric chest rise Chest: Chest wall: No tenderness. Abdominal: General: There is no distension. Tenderness: There is no abdominal tenderness. Musculoskeletal: General: No deformity. Normal range of motion. Cervical back: Normal range of motion. Right lower leg: No edema. Left lower leg: No edema. Comments: Atraumatic, moves all extremities spontaneously Skin: General: Skin is warm. Capillary Refill: Capillary refill takes less than 2 seconds. Coloration: Skin is pale. Neurological: Mental Status: She is alert. Mental status is at baseline. She is disoriented. Comments: Awake Psychiatric: Behavior: Behavior normal. [place] Coma Scale Score: 14 ED Course & MDM - Assessment: 65 y.o. female presents to ED with complaint of AMS. It should be noted that the chronic conditionsincludes decompensated cirrhosis, CKD, which currently is not at goal therapy. This complicates theclinical picture because it Comorbidities: may be exacerbating symptoms, increases the amount and complexity of data to be reviewed, complicates the clinical workup, and increases the risk for morbidity Differential Diagnosis: medication noncompliance, hepatic encephalopathy, UTI, AMS, metabolic derangements, hypoglycemia, sepsis, bacteremia In order to fully explore the differential diagnosis the following treatments and tests were ordered: All Other Orders Ordered Status Ordering Provider 08/18/25626 Consult to Family Medicine Once Specialty: Family Medicine Provider: (Not yet assigned) Acknowledged JOHNNY WAGNER 08/18/25626 ED to floor bed request Once Acknowledged JOHNNY WAGNER 08/18/25 06 Once Specialty: Internal Medicine Provider: (Not yet assigned) Canceled JOHNNY WAGNER 08/18/25 0613 Once Canceled JOHNNY WAGNER 08/18/25 0614 EKG now - STAT (adult) Once Preliminary result JOHNNY WAGNER 08/18/25 0546 CBC w/diff STAT In process JOHNNY WAGNER 08/18/25 0546 PT-INR STAT In process JOHNNY WAGNER 08/18/25 0546 CMP STAT In process JOHNNY WAGNER 08/18/25 0546 Magnesium STAT In process JOHNNY WAGNER 08/18/25 0546 Phosphorus STAT In process KRISTY, JOHNNY Rivera 08/18/25 0546 Lipase STAT In process JOHNNY WAGNER 08/18/25 0546 Blood gas panel, venous STAT Final result JOHNNY WAGNER ED Course as of 08/18/25 0644 [place] Aug 18, 2025 05 Patient presents to emergency department for evaluation of altered mental status in the setting of known decompensated cirrhosis. Reportedly patient has not been compliant with her lactulose wasseen at outside hospital where workup was concerning for elevated ammonia, UTI in no acute findingson imaging. She was given IV antibiotics and a fluid bolus for borderline low blood pressures and sent to for further evaluation. On arrival she is hemodynamically stable afebrile and chronically ill appearing. She has no abdominal tenderness on palpation she has been alert and oriented x2 and states that she has only been given her lactulose 2 times a day instead of the typical 3. She does believe that she has had decreased bowel movements but is otherwise unable to provide further history [KS] 0558 Outside hospital chart was reviewed showing concerns for UTI was given Rocephin. On arrival here we will repeat basic laboratory workup however based on her likely hepatic encephalopathy patientwill require admission for continued management. [KS] 0627 EKG now - STAT (adult) Personally reviewed and interpreted by me. Sinus bradycardia without any acute T way for ST changes. No segment prolongation [KS] 0643 Family Medicine was consulted for evaluation and admission. They were agreeable to evaluate and admit patient for continued management in the setting of hepatic encephalopathy and UTI [KS] ED Course User Index [KS] Johnny Wagner MD Social Determinates of Health Risks (including Economic Stability, Education and level of understanding, Healthcare access and quality and concerning social factors): Inability to see a healthcare specialist in timely manner. Ultimately, this patient was Was admitted (Admission) There were no encounter diagnoses.. Patient believed to require admission for the listed diagnoses. The Family Medicine service was consulted for admission and was agreeable to admit to Acute Floor (Med/Surg). ED Prescriptions None Disposition Admit Requested Location: [facility] [[id number]] - [1] Past Medical History: Diagnosis Date ADHD (attention deficit hyperactivity disorder) Allergic Anxiety disorder, unspecified Anxiety Bleeding gums Blood in urine Cataract Chronic kidney disease Cirrhosis ([facility]) Colon cancer screening 09/20/2019 Added automatically from request for surgery [id number] Coronary artery disease Depression 1996 Diabetes mellitus type 2 in obese 04/22/2015 Diabetic nephropathy ([facility]) Dry mouth Epigastric pain 08/02/2019 ETD (eustachian tube dysfunction) 07/13/2018 GERD (gastroesophageal reflux disease) Headache Heart murmur Hepatic encephalopathy ([facility]/HCC) 10/14/2024 HL (hearing loss) Hypoparathyroidism Inflammatory bowel [...] 1979 BLADDER SURGERY N/A Bladder surgery from [facility] BREAST BIOPSY 2011 BREAST SURGERY 2010 BUNIONECTOMY Right CATARACT EXTRACTION Bilateral 2016 CHOLECYSTECTOMY 1980 ESOPHAGOGASTRODUODENOSCOPY HYSTERECTOMY N/A Hysterectomy from [facility] KNEE SURGERY Bilateral ORAL SURGERY N/A Oral surgery from [facility] OTHER SURGICAL HISTORY 2014 ROOT CANAL WISDOM [...] Sister Lj Bernal Recurrent Infections Sister Lj Gabe Dementia Maternal [...] use: Not Currently Drug use: Never [5] Allergies Allergen Reactions Penicillins Other - please document in the comment field Doesn't remember Johnny Wagner MD Resident 08/18/25 0644 Cosigned by Alvarez Brice MD at 08/23/2025 10:15 PM EDT Associated attestation - Alvarez Brice MD - 08/23/2025 10:15 PM EDT I saw and evaluated the patient with the resident/fellow. I discussed the case with the resident/fellow and agree with the findings and plan as documented. documented in this encounter Plan of Treatment Upcoming Encounters Date Type Department Care Team (Late st Contact Info) Description 08/26/2025 1:00 PM EDT Office Visit [facility]ology [address] [place] [address] Miranda Hobson, STOCK CLERK [facility] [address] [facility] [address] [place] [address] 08/29/2025 10:00 AM EDT Appointment [facility] [address] [place] [address] 08/29/2025 11:00 AM EDT Appointment [facility] [address] [place] [address] 09/03/2025 8:40 AM EDT Office Visit [facility] [address], [address] [place] [address] Lillie Pritchard MD [address] [place] [address] 09/05/2025 10:00 AM EDT Appointment [facility] [address] [place] [address] 09/05/2025 11:00 AM EDT Appointment [facility] [address] [place] [address] 09/17/2025 9:45 AM EDT Clinical Support [facility] [place] [address] [place] [address] 09/17/2025 10:30 AM EDT Social Work [facility] [place] [address] [place] [address] Lea Reilly, [place] [address] 09/17/2025 11:20 AM EDT Office Visit [facility] [place] [address] [place] [address] Octavia Herrera, PA [address] [place] [address] Scheduled Referrals Name Type Priority Associated Diagnoses Orde r Schedule Discharge Ambulatory referral to Family Medicine Outpatient Referral Routine Hepatic encephalopathy (CMS/HCC) Expected: 09/03/2025, Expires: 02/21/2027 documented as of this encounter Procedures Procedure Name Priority Date/Time Associated Diagnosis Comments POCT GLUCOSE METER UNSOLICITED RESULTS Routine 08/20/2025 12:05 PM EDT POCT GLUCOSE METER UNSOLICITED RESULTS Routine 08/20/2025 7:23 AM EDT PROTHROMBIN TIME(PT) / INR Routine 08/20/2025 3:26 AM EDT CBC WITH AUTO DIFFERENTIAL Routine 08/20/2025 3:26 AM EDT PHOSPHORUS, PLASMA Routine 08/20/2025 3: 26 AM EDT MAGNESIUM, PLASMA Routine 08/20/2025 3:2 6 AM EDT COMPREHENSIVE METABOLIC PANEL, PLASMA Routine 08/20/2025 3:26 AM EDT POCT GLUCOSE METER UNSOLICITED RESULTS Routine 08/20/2025 3:25 AM EDT POCT GLUCOSE METER UNSOLICITED RESULTS Routine 08/20/2025 12:19 AM EDT POCT GLUCOSE METER UNSOLICITED RESULTS Routine 08/19/2025 8:27 PM EDT POCT GLUCOSE METER UNSOLICITED RESULTS Routine 08/19/2025 4:23 PM EDT XR CHEST 1 VIEW STAT 08/19/2025 1:14 PM EDT US ABDOMEN FOCUSED REGION STAT 08/19/2025 1:12 PM EDT AMMONIA, PLASMA Routine 08/19/2025 12:22 PM EDT POCT GLUCOSE METER UNSOLICITED RESULTS Routine 08/19/2025 11:18 AM EDT NON-INVASIVE VENTILATION Routine 08/19/2025 8:00 AM EDT POCT GLUCOSE METER UNSOLICITED RESULTS Routine 08/19/2025 7:34 AM EDT POCT GLUCOSE METER UNSOLICITED RESULTS Routine 08/19/2025 2:08 AM EDT PROTHROMBIN TIME(PT) / INR Routine 08/19/2025 1:30 AM EDT CBC WITH AUTO DIFFERENTIAL Routine 08/19/2025 1:06 AM EDT PHOSPHORUS, PLASMA Routine 08/19/2025 1: 06 AM EDT MAGNESIUM, PLASMA Routine 08/19/2025 1:0 6 AM EDT COMPREHENSIVE METABOLIC PANEL, PLASMA Routine 08/19/2025 1:06 AM EDT POCT GLUCOSE METER UNSOLICITED RESULTS Routine 08/18/2025 10:15 PM EDT POCT GLUCOSE METER UNSOLICITED RESULTS Routine 08/18/2025 8:17 PM EDT POCT GLUCOSE METER UNSOLICITED RESULTS Routine 08/18/2025 4:26 PM EDT PROTEIN, URINE, RANDOM WITH CREATININE Routine 08/18/2025 4:15 PM EDT NON-INVASIVE VENTILATION Routine 08/18/2025 4:02 PM EDT NON-INVASIVE VENTILATION Routine 08/18/2025 4:02 PM EDT NON-INVASIVE VENTILATION Routine 08/18/2025 4:02 PM EDT PROTHROMBIN TIME(PT) / INR STAT 08/18/2025 7:32 AM EDT ECG ADULT STAT 08/18/2025 6:18 AM EDT PROTHROMBIN TIME(PT) / INR STAT 08/18/2025 6:11 AM EDT CBC WITH AUTO DIFFERENTIAL STAT 08/18/2025 6:11 AM EDT PHOSPHORUS, PLASMA STAT 08/18/2025 6: 11 AM EDT OSMOLALITY, SERUM Add-On 08/18/2025 6:1 1 AM EDT MAGNESIUM, PLASMA STAT 08/18/2025 6:1 1 AM EDT LIPASE, PLASMA STAT 08/18/2025 6:11 AM EDT BLOOD GAS PANEL, VENOUS STAT 08/18/2025 6:11 AM EDT COMPREHENSIVE METABOLIC PANEL, PLASMA STAT 08/18/2025 6:11 AM EDT documented in this encounter Results * (ABNORMAL) POCT glucose meter (08/20/2025 12:05 PM EDT) POCT Glucose 279(H) 74 - 99 mg/dL 08/20/2025 12:07 PM EDT [facility] Comment:Accuracy of a glucos e result obtained from a capillary whole blood specimen relies upon adequate, non-compromised capillary blood flow. If the capillary glucose result is not consistent with the patient's clinical signs and symptoms, glucose testing should be repeated with either an arterial or venous sample on the glucometer or sent to the main labortory for testing. Comment 08/20/2025 12:07 PM EDT [facility] Rn Maternal Child ID Kevin Serrano 12:07 PM EDT [facility] Device ID [id number] 08/20/2025 12:07 PM EDT [facility] Specimen Type POC Capillary 08/20/2025 12:07 PM EDT [facility] Blood Capillary blood specimen / Unknown 08/20/2025 12:05 PM EDT 08/20/2025 12:07 PM EDT Sushma Meza MD LAB POINT OF CARE TE ST DOCKED DEVICE UNSOLICITED RESULTS Final Result Performing Organization Address City/State/[facility] Co de Phone Number [facility] [address] [place] [address] * (ABNORMAL) POCT glucose meter (08/20/2025 7:23 AM EDT) POCT Glucose 259(H) 74 - 99 mg/dL 08/20/2025 7:24 AM EDT [facility] Comment:Accuracy of a glucos e result obtained from a capillary whole blood specimen relies upon adequate, non-compromised capillary blood flow. If the capillary glucose result is not consistent with the patient's clinical signs and symptoms, glucose testing should be repeated with either an arterial or venous sample on the glucometer or sent to the main labortory for testing. Comment 08/20/2025 7:24 AM EDT [facility] Rn Maternal Child ID Kevin Serrano 7:24 AM EDT [facility] Device ID [id number] 08/20/2025 7:24 AM EDT [facility] Specimen Type POC Capillary 08/20/2025 7:24 AM EDT [facility] Blood Capillary blood specimen / Unknown 08/20/2025 7:23 AM EDT 08/20/2025 7:24 AM EDT us Sushma Meza MD LAB POINT OF CARE TE ST DOCKED DEVICE UNSOLICITED RESULTS Final Result Performing Organization Address City/[facility] Co de Phone Number [facility] [address] [place] [address] * (ABNORMAL) Protime-INR (08/20/2025 3:26 AM EDT) Prothrombin Time 23.0(H) 12.0 - 14.3 sec 08/20/2025 3:51 AM EDT [facility] INR 2.0(H) 0.9 - 1.1 08/20/2025 3:51 AM EDT [facility] Blood Venous blood specimen / Unknown Venipuncture / Unknown 08/20/2025 3:26 AM EDT 08/20/2025 3:39 AM EDT Narrative [facility] - 08/20/2025 3:51 AM EDT OPTIMAL INR RANGES FOR PATIENT ON ORAL ANTICOAGULANT THERAPY Prevention of venous thromboembolism INR 2.0 to 3.0 In patients with heart disease: Atrial fibrillation INR 2.0 to 3.0 Valvular heart disease INR 2.0 to 3.0 Tissue heart valves INR 2.0 to 3.0 Mechanical prosthetic valves INR 2.5 to 3.5 Prevention of recurrent TX INR 2.5 to 3.5 us Sushma Meza MD LAB BLOOD ORDERABLES Final R esult Performing Organization Address City/[facility] Co de Phone Number [facility] [address] [place] [address] * Phosphorus (08/20/2025 3:26 AM EDT) Phosphorus, Plasma 4.3 2.5 - 4.5 mg/dL 08/20/2025 4:14 AM EDT [facility] Blood Venous blood specimen / Unknown Venipuncture / Unknown 08/20/2025 3:26 AM EDT 08/20/2025 3:37 AM EDT us Sushma Meza MD LAB BLOOD ORDERABLES Final R esult Performing Organization Address City/[facility] Co de Phone Number [facility] [address] [place] [address] * (ABNORMAL) Magnesium (08/20/2025 3:26 AM EDT) Pathologist [facility] Magnesium, Plasma 1.6(L) 1.9 - 2.4 mg/dL 08/20/2025 4:14 AM EDT [facility] Blood Venous blood specimen / Unknown Venipuncture / Unknown 08/20/2025 3:26 AM EDT 08/20/2025 3:37 AM EDT us Sushma Meza MD LAB BLOOD ORDERABLES Final R esult [facility] [address] [place] [address] * (ABNORMAL) Comprehensive metabolic panel (08/20/2025 3:26 AM EDT) Pathologist [facility] Glucose, Plasma 274(H) 74 - 99 mg/dL 08/20/2025 4:14 AM EDT [facility] BUN, Plasma 51(H) 8 - 23 mg/dL 08/20/2025 4:14 AM EDT [facility] Creatinine, Plasma 2.42(H) 0.60 - 1.10 mg/dL 08/20/2025 4:14 AM EDT [facility] BUN/Creatinine Ratio 21 08/20/2025 4:14 AM EDT [facility] Sodium, Plasma 132(L) 136 - 145 mmol/L 08/20/2025 4:14 AM EDT [facility] Potassium, Plasma 4.1 3.6 - 4.9 mmol/L 08/20/2025 4:14 AM EDT [facility] Chloride, Plasma 101 97 - 107 mmol/L 08/20/2025 4:14 AM EDT [facility] CO2, Plasma 20(L) 22 - 29 mmol/L 08/20/2025 4:14 AM EDT [facility] Anion Gap 11 6 - 16 mmol/L 08/20/2025 4:14 AM EDT [facility] Total Calcium, Plasma 8.4(L) 8.9 - 10.2 mg/dL 08/20/2025 4:14 AM EDT [facility] Total Protein 5.8(L) 6.3 - 7.9 g/dL 08/20/2025 4:14 AM EDT [facility] Albumin, Plasma 2.8(L) 3.5 - 5.2 g/dL 08/20/2025 4:14 AM EDT [facility] AST, Plasma 32 10 - 35 U/L 08/20/2025 4:14 AM EDT [facility] ALT, Plasma 12 10 - 35 U/L 08/20/2025 4:14 AM EDT [facility] Alkaline Phosphatase, Plasma 175(H) 46 - 142 U/L 08/20/2025 4:14 AM EDT [facility] Total Bilirubin, Plasma 1.5(H) 0.2 - 1.1 mg/dL 08/20/2025 4:14 AM EDT [facility] eGFRcr 22.0 mL/min/1.7 3m*2 08/20/2025 4:14 AM EDT [facility] Comment:Reported eGFRcr in m L/min/1.73m2 is based the CKD-EPI 2020 equation that does not use a race coefficient. Blood Venous blood specimen / Unknown Venipuncture / Unknown 08/20/2025 3:26 AM EDT 08/20/2025 3:37 AM EDT Sushma Meza MD LAB BLOOD ORDERABLES Final R esult [facility] [address] [place] [id number] * (ABNORMAL) CBC and differential (08/20/2025 3:26 AM EDT) [facility] WBC Count 4.76 3.70 - 10.30 10*3/uL LAB HEMATOLOGY METHOD 08/20/2025 3:42 AM EDT [facility] RBC Count 2.72(L) 3.90 - 5.20 10*6/uL LAB HEMATOLOGY METHOD 08/20/2025 3:42 AM EDT [facility] HGB 8.6(L) 11.2 - 15.7 g/dL LAB HEMATOLOGY METHOD 08/20/2025 3:42 AM EDT [facility] HCT 24.9(L) 34.0 - 45.0 % LAB HEMATOLOGY METHOD 08/20/2025 3:42 AM EDT [facility] Platelet Count 59(L) 155 - 369 10*3/uL LAB HEMATOLOGY METHOD 08/20/2025 3:42 AM EDT [facility] MCV 92 79 - 98 fL LAB HEMATOLOGY METHOD 08/20/2025 3:42 AM EDT [facility] MCH 31.6 26.0 - 32.0 pg LAB HEMATOLOGY METHOD 08/20/2025 3:42 AM EDT [facility] MCHC 34.5 30.7 - 35.5 g/dL LAB HEMATOLOGY METHOD 08/20/2025 3:42 AM EDT [facility] RDW 17.2(H) 11.5 - 14.5 % LAB HEMATOLOGY METHOD 08/20/2025 3:42 AM EDT [facility] MPV 10.9 8.8 - 12.5 fL LAB HEMATOLOGY METHOD 08/20/2025 3:42 AM EDT [facility] nRBC 0.0 <=0.0 per 100 WBCs LAB HEMATOLOGY METHOD 08/20/2025 3:42 AM EDT [facility] Differential Type Automated LAB HEMATOLOGY METHOD 08/20/2025 3:42 AM EDT [facility] Neutrophils % 64 % LAB HEMATOLOGY METHOD 08/20/2025 3:42 AM EDT [facility] Lymphocytes % 16 % LAB HEMATOLOGY METHOD 08/20/2025 3:42 AM EDT [facility] Monocytes % 15 % LAB HEMATOLOGY METHOD 08/20/2025 3:42 AM EDT [facility] Eosinophils % 4 % LAB HEMATOLOGY METHOD 08/20/2025 3:42 AM EDT [facility] Basophils % 1 % LAB HEMATOLOGY METHOD 08/20/2025 3:42 AM EDT [facility] Immature Granulocytes % 0 % LAB HEMATOLOGY METHOD 08/20/2025 3:42 AM EDT [facility] Neutrophils Absolute 3.02 1.60 - 6.10 10*3/uL LAB HEMATOLOGY METHOD 08/20/2025 3:42 AM EDT [facility] Lymphocytes Absolute 0.77(L) 1.20 - 3.90 10*3/uL LAB HEMATOLOGY METHOD 08/20/2025 3:42 AM EDT [facility] Monocytes Absolute 0.69 0.30 - 0.90 10*3/uL LAB HEMATOLOGY METHOD 08/20/2025 3:42 AM EDT [facility] Eosinophils Absolute 0.21 0.00 - 0.50 10*3/uL LAB HEMATOLOGY METHOD 08/20/2025 3:42 AM EDT [facility] Basophils Absolute 0.05 0.00 - 0.10 10*3/uL LAB HEMATOLOGY METHOD 08/20/2025 3:42 AM EDT [facility] Immature Granulocytes Absolute 0.02 0.00 - 0.06 10*3/uL LAB HEMATOLOGY METHOD 08/20/2025 3:42 AM EDT [facility] Blood Venous blood specimen / Unknown Venipuncture / Unknown 08/20/2025 3:26 AM EDT 08/20/2025 3:39 AM EDT Narrative [facility] - 08/20/2025 3:42 AM EDT Therapeutic decision making should be based on absolute values, rather than percentages. us Sushma Meza MD LAB BLOOD ORDERABLES Final R esult [facility] [address] [place] [address] * (ABNORMAL) POCT glucose meter (08/20/2025 3:25 AM EDT) [facility] POCT Glucose 256(H) 74 - 99 mg/dL 08/20/2025 3:29 AM EDT [facility] Comment:Accuracy of a glucos e result obtained from a capillary whole blood specimen relies upon adequate, non-compromised capillary blood flow. If the capillary glucose result is not consistent with the patient's clinical signs and symptoms, glucose testing should be repeated with either an arterial or venous sample on the glucometer or sent to the main labortory for testing. Comment 08/20/2025 3:29 AM EDT [facility] Rn Maternal Child ID Leonela Puga 08/20/2025 3:29 AM EDT [facility] Device ID [id number] 08/20/2025 3:29 AM EDT [facility] Specimen Type POC Capillary 08/20/2025 3:29 AM EDT [facility] Blood Capillary blood specimen / Unknown 08/20/2025 3:25 AM EDT 08/20/2025 3:29 AM EDT us Sushma Meza MD LAB POINT OF CARE TE ST DOCKED DEVICE UNSOLICITED RESULTS Final Result Performing Organization Address [facility] Co de Phone Number [facility] [address] [place] [address] * (ABNORMAL) POCT glucose meter (08/20/2025 12:19 AM EDT) [facility] POCT Glucose 289(H) 74 - 99 mg/dL 08/20/2025 12:22 AM EDT [facility] Comment:Accuracy of [...] to the main labortory for testing. Comment 08/20/2025 12:22 AM EDT [facility] Rn Maternal Child Leonela Boggs 08/20/2025 12:22 AM EDT [facility] Device ID [id number] 08/20/2025 12:22 AM EDT [facility] Specimen Type POC Capillary 08/20/2025 12:22 AM EDT [facility] Blood Capillary blood specimen / Unknown 08/20/2025 12:19 AM EDT 08/20/2025 12:22 AM EDT Sushma Meza MD LAB POINT OF CARE TE ST DOCKED DEVICE UNSOLICITED RESULTS Final Result Performing Organization Address [facility] de Phone Number [facility] [address] [place] [address] * (ABNORMAL) POCT glucose meter (08/19/2025 8:27 PM EDT) [facility] POCT Glucose 401(H) 74 - 99 mg/dL 08/19/2025 8:29 PM EDT [facility] Comment:Accuracy of [...] to the main labortory for testing. Comment 08/19/2025 8:29 PM EDT [facility] Rn Maternal Child Leonela Boggs 08/19/2025 8:29 PM EDT [facility] Device ID [id number] 08/19/2025 8:29 PM EDT [facility] Specimen Type POC Capillary 08/19/2025 8:29 PM EDT [facility] Blood Capillary blood specimen / Unknown 08/19/2025 8:27 PM EDT 08/19/2025 8:29 PM EDT Sushma Meza MD LAB POINT OF CARE TE ST DOCKED DEVICE UNSOLICITED RESULTS Final Result Performing Organization Address City/[facility]/ZIP Co de Phone Number [facility] [address] [place] [address] * (ABNORMAL) POCT glucose meter (08/19/2025 4:23 PM EDT) [facility] POCT Glucose 424(H) 74 - 99 mg/dL 08/19/2025 4:25 PM EDT [facility] Comment:Accuracy of [...] to the main labortory for testing. Comment 08/19/2025 4:25 PM EDT [facility] Rn Maternal Child ID Kandice Urrutia 4:25 PM EDT [facility] Device ID [id number] 08/19/2025 4:25 PM EDT [facility] Specimen Type POC Capillary 08/19/2025 4:25 PM EDT [facility] Blood Capillary blood specimen / Unknown 08/19/2025 4:23 PM EDT 08/19/2025 4:25 PM EDT us Sushma Meza MD LAB POINT OF CARE TE ST DOCKED DEVICE UNSOLICITED RESULTS Final Result Performing Organization Address City/[facility]/ZIP Co de Phone Number [facility] [address] [place] [address] * XR Chest 1 View (08/19/2025 1:14 PM EDT) Anatomical Region Laterality Modality Chest Digital Radiogra phy Impressions 08/19/2025 2:43 PM EDT Moderate bibasilar atelectasis with a moderate right pleural effusion and trace left effusion. CRITICAL RESULT: No. COMMUNICATION: Per this written report. By electronically signing this report, I, the attending physician, attest that I have personally reviewed the images/data for the above examination(s) and agree with the final edited report. Drafted by Otto Harp MD on 08/19/2025 1:27 PM Final report signed by Golden Jin MD on 08/19/2025 2:43 PM Narrative 08/19/2025 2:43 PM EDT CLINICAL INDICATION: eval for thora TECHNIQUE: XR CHEST 1 VIEW COMPARISON: Chest x-ray OSH 08/17/2025 Chest x-ray 08/08/2025 FINDINGS: Stable cardiomediastinal silhouette. Similar appearance of moderate bibasilar atelectasis. Low lung volumes. Moderate right-sided pleural effusion, slightly decreased in size from most recent comparison chest radiograph. Probable trace left-sided effusion. No new focal consolidation. No pneumothorax. Procedure Note Golden Jin MD - 08/19/2025 CLINICAL INDICATION: eval for thora TECHNIQUE: XR CHEST 1 VIEW COMPARISON: Chest x-ray OSH 08/17/2025 Chest x-ray 08/08/2025 FINDINGS: Stable cardiomediastinal silhouette. Similar appearance of moderatebibasilar atelectasis. Low lung volumes. Moderate right-sided pleuraleffusion, slightly decreased in size from most recent comparison chestradiograph. Probable trace left-sided effusion. No new focalconsolidation. No pneumothorax. IMPRESSION: Moderate bibasilar atelectasis with a moderate right pleural effusion andtrace left effusion. CRITICAL RESULT: No. COMMUNICATION: Per this written report. By electronically signing this report, I, the attending physician, attestthat I have personally reviewed the images/data for the aboveexamination(s) and agree with the final edited report. Drafted by Otto Harp MD on 08/19/2025 1:27 PM Final report signed by Golden Jin MD on 08/19/2025 2:43 PM us Sushma Meza MD IMG XR PROCEDURES Final Resu lt * US Abdomen Focused Region Other (08/19/2025 1:12 PM EDT) Anatomical Region Laterality Modality Abdomen Ultrasound Impressions 08/19/2025 1:49 PM EDT Moderate volume of generalized ascites. CRITICAL RESULT: No. COMMUNICATION: Per this written report. Drafted by Mahendra Castro MD on 08/19/2025 1:48 PM Final report signed by Mahendra Castro MD on 08/19/2025 1:49 PM Narrative 08/19/2025 1:49 PM EDT CLINICAL INDICATION: eval for amount of ascites TECHNIQUE: Focused static and cine grayscale ultrasound images of portions of the abdomen were obtained to check for ascites in all 4 quadrants. COMPARISON: None. FINDINGS: Moderate volume of generalized ascites. Procedure Note Mahendra Castro MD - 08/19/2025 CLINICAL INDICATION: eval for amount of ascites TECHNIQUE: Focused static and cine grayscale ultrasound images of portions of theabdomen were obtained to check for ascites in all 4 quadrants. COMPARISON: None. FINDINGS: Moderate volume of generalized ascites. IMPRESSION: Moderate volume of generalized ascites. CRITICAL RESULT: No. COMMUNICATION: Per this written report. Drafted by Mahendra Castro MD on 08/19/2025 1:48 PM Final report signed by Mahendra Castro MD on 08/19/2025 1:49 PM Sushma Meza MD IMG US PROCEDURES Final Resu lt * (ABNORMAL) Ammonia, Plasma (08/19/2025 12:22 PM EDT) Ammonia 77(H) 11 - 51 umol/L 08/19/2025 12:55 PM EDT [facility] Blood Venous blood specimen / Unknown Venipuncture / Unknown 08/19/2025 12:22 PM EDT 08/19/2025 12:35 PM EDT Sushma Meza MD LAB BLOOD ORDERABLES Final R esult Performing Organization Address [facility] de Phone Number [facility] [address] [place] [address] * (ABNORMAL) POCT glucose meter (08/19/2025 11:18 AM EDT) [facility] POCT Glucose 408(H) 74 - 99 mg/dL 08/19/2025 11:20 AM EDT [facility] Comment:Accuracy of [...] to the main labortory for testing. Comment 08/19/2025 11:20 AM EDT [facility] Rn Maternal Child ID Dee Dee Rogers 08/19/20 11:20 AM EDT [facility] Device ID [id number] 08/19/2025 11:20 AM EDT [facility] Specimen Type POC Capillary 08/19/2025 11:20 AM EDT [facility] Blood Capillary blood specimen / Unknown 08/19/2025 11:18 AM EDT 08/19/2025 11:20 AM EDT Sushma Meza MD LAB POINT OF CARE TE ST DOCKED DEVICE UNSOLICITED RESULTS Final Result Performing Organization Address [facility] de Phone Number [facility] [address] [place] [address] * (ABNORMAL) POCT glucose meter (08/19/2025 7:34 AM EDT) [facility] POCT Glucose 238(H) 74 - 99 mg/dL 08/19/2025 7:36 AM EDT [facility] Comment:Accuracy of [...] to the main labortory for testing. Comment 08/19/2025 7:36 AM EDT [facility] Rn Maternal Child ID Dee Dee Rogers 08/19/20 7:36 AM EDT [facility] Device ID [id number] 08/19/2025 7:36 AM EDT [facility] Specimen Type POC Capillary 08/19/2025 7:36 AM EDT [facility] Blood Capillary blood specimen / Unknown 08/19/2025 7:34 AM EDT 08/19/2025 7:36 AM EDT Sushma Meaz MD LAB POINT OF CARE TE ST DOCKED DEVICE UNSOLICITED RESULTS Final Result Performing Organization Address City/[facility]/ZIP Co de Phone Number [facility] [address] [place] [address] * (ABNORMAL) POCT glucose meter (08/19/2025 2:08 AM EDT) [facility] POCT Glucose 257(H) 74 - 99 mg/dL 08/19/2025 2:09 AM EDT [facility] Comment:Accuracy of [...] to the main labortory for testing. Comment 08/19/2025 2:09 AM EDT [facility] Rn Maternal Child ID Lida Zimmer 08/19/2025 2:09 AM EDT [facility] Device ID [id number] 08/19/2025 2:09 AM EDT [facility] Specimen Type POC Capillary 08/19/2025 2:09 AM EDT [facility] Blood Capillary blood specimen / Unknown 08/19/2025 2:08 AM EDT 08/19/2025 2:09 AM EDT us Sushma Meza MD LAB POINT OF CARE TE ST DOCKED DEVICE UNSOLICITED RESULTS Final Result Performing Organization Address City/[facility]/ZIP Co de Phone Number [facility] [address] [place] [address] * (ABNORMAL) Protime-INR (08/19/2025 1:30 AM EDT) Prothrombin Time 23.2(H) 12.0 - 14.3 sec 08/19/2025 2:10 AM EDT [facility] INR 2.0(H) 0.9 - 1.1 08/19/2025 2:10 AM EDT [facility] Blood Venous blood specimen / Unknown Venipuncture / Unknown 08/19/2025 1:30 AM EDT 08/19/2025 1:48 AM EDT Narrative [facility] - 08/19/2025 2:10 AM EDT OPTIMAL INR RANGES FOR PATIENT ON ORAL ANTICOAGULANT THERAPY Prevention of venous thromboembolism INR 2.0 to 3.0 In patients with heart disease: Atrial fibrillation INR 2.0 to 3.0 Valvular heart disease INR 2.0 to 3.0 Tissue heart valves INR 2.0 to 3.0 Mechanical prosthetic valves INR 2.5 to 3.5 Prevention of recurrent TX INR 2.5 to 3.5 Sushma Meza MD LAB BLOOD ORDERABLES Final R esult Performing Organization Address City/[facility]/ZIP Co de Phone Number [facility] [address] [place] [address] * Phosphorus (08/19/2025 1:06 AM EDT) Phosphorus, Plasma 4.0 2.5 - 4.5 mg/dL 08/19/2025 1:40 AM EDT [facility] Blood Venous blood specimen / Unknown Venipuncture / Unknown 08/19/2025 1:06 AM EDT 08/19/2025 1:10 AM EDT Sushma Meza MD LAB BLOOD ORDERABLES Final R esult [facility] [address] [place] [address] * Magnesium (08/19/2025 1:06 AM EDT) Magnesium, Plasma 1.9 1.9 - 2.4 mg/dL 08/19/2025 1:40 AM EDT [facility] Blood Venous blood specimen / Unknown Venipuncture / Unknown 08/19/2025 1:06 AM EDT 08/19/2025 1:10 AM EDT us Sushma Meza MD LAB BLOOD ORDERABLES Final R esult [facility] [address] [place] [address] * (ABNORMAL) Comprehensive metabolic panel (08/19/2025 1:06 AM EDT) Glucose, Plasma 284(H) 74 - 99 mg/dL 08/19/2025 1:40 AM EDT [facility] BUN, Plasma 47(H) 8 - 23 mg/dL 08/19/2025 1:40 AM EDT [facility] Creatinine, Plasma 2.66(H) 0.60 - 1.10 mg/dL 08/19/2025 1:40 AM EDT [facility] BUN/Creatinine Ratio 18 08/19/2025 1:40 AM EDT [facility] Sodium, Plasma 129(L) 136 - 145 mmol/L 08/19/2025 1:40 AM EDT [facility] Potassium, Plasma 3.9 3.6 - 4.9 mmol/L 08/19/2025 1:40 AM EDT [facility] Chloride, Plasma 99 97 - 107 mmol/L 08/19/2025 1:40 AM EDT [facility] CO2, Plasma 21(L) 22 - 29 mmol/L 08/19/2025 1:40 AM EDT [facility] Anion Gap 9 6 - 16 mmol/L 08/19/2025 1:40 AM EDT [facility] Total Calcium, Plasma 8.0(L) 8.9 - 10.2 mg/dL 08/19/2025 1:40 AM EDT [facility] Total Protein 6.0(L) 6.3 - 7.9 g/dL 08/19/2025 1:40 AM EDT [facility] Albumin, Plasma 3.1(L) 3.5 - 5.2 g/dL 08/19/2025 1:40 AM EDT [facility] AST, Plasma 35 10 - 35 U/L 08/19/2025 1:40 AM EDT [facility] ALT, Plasma 13 10 - 35 U/L 08/19/2025 1:40 AM EDT [facility] Alkaline Phosphatase, Plasma 161(H) 46 - 142 U/L 08/19/2025 1:40 AM EDT [facility] Total Bilirubin, Plasma 1.8(H) 0.2 - 1.1 mg/dL 08/19/2025 1:40 AM EDT [facility] [facility] eGFRcr 19.6 mL/min/1.7 3m*2 08/19/2025 1:40 AM EDT [facility] Comment:Reported eGFRcr in m L/min/1.73m2 is based the CKD-EPI 2020 equation that does not use a race coefficient. Blood Venous blood specimen / Unknown Venipuncture / Unknown 08/19/2025 1:06 AM EDT 08/19/2025 1:10 AM EDT Sushma Meza MD LAB BLOOD ORDERABLES Final R esult [facility] [address] [place] [id number] * (ABNORMAL) CBC and differential (08/19/2025 1:06 AM EDT) WBC Count 3.57(L) 3.70 - 10.30 10*3/uL LAB HEMATOLOGY METHOD 08/19/2025 1:18 AM EDT [facility] RBC Count 2.78(L) 3.90 - 5.20 10*6/uL LAB HEMATOLOGY METHOD 08/19/2025 1:18 AM EDT [facility] HGB 8.8(L) 11.2 - 15.7 g/dL LAB HEMATOLOGY METHOD 08/19/2025 1:18 AM EDT [facility] HCT 25.5(L) 34.0 - 45.0 % LAB HEMATOLOGY METHOD 08/19/2025 1:18 AM EDT [facility] Platelet Count 58(L) 155 - 369 10*3/uL LAB HEMATOLOGY METHOD 08/19/2025 1:18 AM EDT [facility] MCV 92 79 - 98 fL LAB HEMATOLOGY METHOD 08/19/2025 1:18 AM EDT [facility] MCH 31.7 26.0 - 32.0 pg LAB HEMATOLOGY METHOD 08/19/2025 1:18 AM EDT [facility] MCHC 34.5 30.7 - 35.5 g/dL LAB HEMATOLOGY METHOD 08/19/2025 1:18 AM EDT [facility] RDW 17.7(H) 11.5 - 14.5 % LAB HEMATOLOGY METHOD 08/19/2025 1:18 AM EDT [facility] MPV 10.4 8.8 - 12.5 fL LAB HEMATOLOGY METHOD 08/19/2025 1:18 AM EDT [facility] nRBC 0.0 <=0.0 per 100 WBCs LAB HEMATOLOGY METHOD 08/19/2025 1:18 AM EDT [facility] Differential Type Automated LAB HEMATOLOGY METHOD 08/19/2025 1:18 AM EDT [facility] Neutrophils % 64 % LAB HEMATOLOGY METHOD 08/19/2025 1:18 AM EDT [facility] Lymphocytes % 16 % LAB HEMATOLOGY METHOD 08/19/2025 1:18 AM EDT [facility] Monocytes % 15 % LAB HEMATOLOGY METHOD 08/19/2025 1:18 AM EDT [facility] Eosinophils % 3 % LAB HEMATOLOGY METHOD 08/19/2025 1:18 AM EDT [facility] Basophils % 1 % LAB HEMATOLOGY METHOD 08/19/2025 1:18 AM EDT [facility] Immature Granulocytes % 1 % LAB HEMATOLOGY METHOD 08/19/2025 1:18 AM EDT [facility] Neutrophils Absolute 2.33 1.60 - 6.10 10*3/uL LAB HEMATOLOGY METHOD 08/19/2025 1:18 AM EDT [facility] Lymphocytes Absolute 0.57(L) 1.20 - 3.90 10*3/uL LAB HEMATOLOGY METHOD 08/19/2025 1:18 AM EDT [facility] Monocytes Absolute 0.52 0.30 - 0.90 10*3/uL LAB HEMATOLOGY METHOD 08/19/2025 1:18 AM EDT [facility] Eosinophils Absolute 0.11 0.00 - 0.50 10*3/uL LAB HEMATOLOGY METHOD 08/19/2025 1:18 AM EDT [facility] Basophils Absolute 0.02 0.00 - 0.10 10*3/uL LAB HEMATOLOGY METHOD 08/19/2025 1:18 AM EDT [facility] Immature Granulocytes Absolute 0.02 0.00 - 0.06 10*3/uL LAB HEMATOLOGY METHOD 08/19/2025 1:18 AM EDT [facility] Blood Venous blood specimen / Unknown Venipuncture / Unknown 08/19/2025 1:06 AM EDT 08/19/2025 1:10 AM EDT Narrative [facility] - 08/19/2025 1:18 AM EDT Therapeutic decision making should be based on absolute values, rather than percentages. Sushma Meza MD LAB BLOOD ORDERABLES Final R esult Performing Organization Address City/[facility]/ZIP Co de Phone Number [facility] [address] [place] [address] * (ABNORMAL) POCT glucose meter (08/18/2025 10:15 PM EDT) POCT Glucose 367(H) 74 - 99 mg/dL 08/18/2025 10:16 PM EDT [facility] Comment:Accuracy of [...] to the main labortory for testing. Comment 08/18/2025 10:16 PM EDT [facility] Rn Maternal Child ID Melissa Carney 08/18/20 10:16 PM EDT [facility] Device ID [id number] 08/18/2025 10:16 PM EDT [facility] Specimen Type POC Capillary 08/18/2025 10:16 PM EDT [facility] Blood Capillary blood specimen / Unknown 08/18/2025 10:15 PM EDT 08/18/2025 10:16 PM EDT us Sushma Meza MD LAB POINT OF CARE TE ST DOCKED DEVICE UNSOLICITED RESULTS Final Result Performing Organization Address City/[facility]/ZIP Co de Phone Number [facility] [address] [place] [address] * (ABNORMAL) POCT glucose meter (08/18/2025 8:17 PM EDT) POCT Glucose 427(H) 74 - 99 mg/dL 08/18/2025 8:19 PM EDT [facility] Comment:Accuracy of [...] to the main labortory for testing. Comment 08/18/2025 8:19 PM EDT [facility] Rn Maternal Child ID Lida Zimmer 08/18/2025 8:19 PM EDT [facility] Device ID [id number] 08/18/2025 8:19 PM EDT [facility] Specimen Type POC Capillary 08/18/2025 8:19 PM EDT [facility] Blood Capillary blood specimen / Unknown 08/18/2025 8:17 PM EDT 08/18/2025 8:19 PM EDT us Sushma Meza MD LAB POINT OF CARE TE ST DOCKED DEVICE UNSOLICITED RESULTS Final Result Performing Organization Address City/State/[facility] Phone Number [facility] [address] [place] [address] * (ABNORMAL) POCT glucose meter (08/18/2025 4:26 PM EDT) POCT Glucose 404(H) 74 - 99 mg/dL 08/18/2025 4:28 PM EDT [facility] Comment:Accuracy of [...] to the main labortory for testing. Comment 08/18/2025 4:28 PM EDT [facility] Rn Maternal Child ID Nargis Hou 08/18/20 4:28 PM EDT [facility] Device ID [id number] 08/18/2025 4:28 PM EDT [facility] Specimen Type POC Capillary 08/18/2025 4:28 PM EDT [facility] Blood Capillary blood specimen / Unknown 08/18/2025 4:26 PM EDT 08/18/2025 4:28 PM EDT us Sushma Meza MD LAB POINT OF CARE TE ST DOCKED DEVICE UNSOLICITED RESULTS Final Result Performing Organization Address City/[facility]/ZIP Co de Phone Number [facility] [address] [place] [address] * Protein, Random, Urine with Creatinine (08/18/2025 4:15 PM EDT) Protein, Urine 36 mg/dL 08/18/2025 4:49 PM EDT [facility] Creatinine, Urine 126 mg/dL 08/18/2025 4:49 PM EDT [facility] Protein/Creati nine Ratio 0.3 mg/mg Creat 08/18/2025 4:49 PM EDT [facility] Urine Urine specimen obtained by clean catch procedure / Unknown Non-blood Collection / Unknown 08/18/2025 4:15 PM EDT 08/18/2025 4:23 PM EDT Sushma Meza MD LAB URINE ORDERABLES Final R esult Performing Organization Address City/[facility] Co de Phone Number [facility] [address] [place] [address] * (ABNORMAL) Protime-INR (08/18/2025 7:32 AM EDT) Prothrombin Time 23.5(H) 12.0 - 14.3 sec 08/18/2025 7:57 AM EDT [facility] INR 2.1(H) 0.9 - 1.1 08/18/2025 7:57 AM EDT [facility] Blood Venous blood specimen / Unknown Venipuncture / Unknown 08/18/2025 7:32 AM EDT 08/18/2025 7:44 AM EDT Narrative [facility] - 08/18/2025 7:57 AM EDT OPTIMAL INR RANGES FOR PATIENT ON ORAL ANTICOAGULANT THERAPY Prevention of venous thromboembolism INR 2.0 to 3.0 In patients with heart disease: Atrial fibrillation INR 2.0 to 3.0 Valvular heart disease INR 2.0 to 3.0 Tissue heart valves INR 2.0 to 3.0 Mechanical prosthetic valves INR 2.5 to 3.5 Prevention of recurrent TX INR 2.5 to 3.5 us Alvarez Brice MD LAB BLOOD ORDERABLES Final Result Performing Organization Address City/[facility]/ZIP Co de Phone Number [facility] [address] [place] [address] * EKG now - STAT (adult) (08/18/2025 6:18 AM EDT) EKG DIAGNOSIS CLASS Borderline Abnormal MUSE ECG Ventricular Rate 46 BPM MUSE ECG Atrial Rate 46 BPM MUSE ECG LA Interval 132 ms MUSE ECG QRSD Interval 92 ms MUSE ECG QT Interval 536 ms MUSE ECG QTC Interval 469 ms MUSE ECG P Northridge 45 degrees MUSE ECG R [place] -25 degrees MUSE ECG T Wave [place] 13 degrees MUSE ECG Diagnosis Sinus bradycardia MUSE ECG Diagnosis Low voltage QRS MUSE ECG Diagnosis Borderline ECG MUSE ECG Diagnosis MUSE ECG Diagnosis Confirmed by Artemio Arora ([id number]) on 08/18/2025 1:42:50 PM MUSE ECG 08/18/2025 6:18 AM EDT 08/18/2025 1:42 PM EDT us Alvarez Brice MD ECG ORDERABLES Final Resul t Performing Organization Address City/[facility]/ZIP Co de Phone Number MUSE ECG * Osmolality (08/18/2025 6:11 AM EDT) [facility] Osmolality, Serum 297 280 - 301 mOsm/Kg 08/18/2025 5:06 PM EDT [facility] Blood Venous blood specimen / Unknown Venipuncture / Unknown 08/18/2025 6:11 AM EDT 08/18/2025 6:20 AM EDT us Sushma Meza MD LAB BLOOD ORDERABLES Final R esult [facility] [address] [place] [address] * (ABNORMAL) Blood gas panel, venous (08/18/2025 6:11 AM EDT) [facility] pH, Venous 7.41 7.32 - 7.43 LAB HEMATOLOGY METHOD 08/18/2025 6:31 AM EDT [facility] pCO2, Venous 35(L) 37 - 52 mmHg LAB HEMATOLOGY METHOD 08/18/2025 6:31 AM EDT [facility] pO2, Venous 25 25 - 40 mmHg LAB HEMATOLOGY METHOD 08/18/2025 6:31 AM EDT [facility] SO2, Measured, Venous 39(L) 65 - 80 % LAB HEMATOLOGY METHOD 08/18/2025 6:31 AM EDT [facility] Base Excess, Venous -2.0 -2.0 - 3.0 mmol/L LAB HEMATOLOGY METHOD 08/18/2025 6:31 AM EDT [facility] Bicarbonate, Calculated, Venous 22 22 - 26 mmol/L LAB HEMATOLOGY METHOD 08/18/2025 6:31 AM EDT [facility] Hematocrit, Whole Blood 27.2(L) 34.0 - 45.0 % LAB HEMATOLOGY METHOD 08/18/2025 6:31 AM EDT [facility] Sodium, Whole Blood 138 136 - 145 mmol/L LAB HEMATOLOGY METHOD 08/18/2025 6:31 AM EDT [facility] Potassium, Whole Blood 3.4(L) 3.6 - 4.9 mmol/L LAB HEMATOLOGY METHOD 08/18/2025 6:31 AM EDT [facility] Chloride, Whole Blood 105 97 - 107 mmol/L LAB HEMATOLOGY METHOD 08/18/2025 6:31 AM EDT [facility] Glucose, Whole Blood 193(H) 74 - 99 mg/dL LAB HEMATOLOGY METHOD 08/18/2025 6:31 AM EDT [facility] Lactate, Venous, Whole Blood 2.1 0.5 - 2.2 mmol/L LAB HEMATOLOGY METHOD 08/18/2025 6:31 AM EDT [facility] Ionized Calcium, Whole Blood 3.9(L) 4.6 - 5.1 mg/dL LAB HEMATOLOGY METHOD 08/18/2025 6:31 AM EDT [facility] Blood Venous blood specimen / Unknown Venipuncture / Unknown 08/18/2025 6:11 AM EDT 08/18/2025 6:27 AM EDT us Alvarez Brice MD LAB BLOOD ORDERABLES Final Result [facility] [address] [place] [address] * Lipase (08/18/2025 6:11 AM EDT) Lipase, Plasma 49 19 - 63 U/L 08/18/2025 6:51 AM EDT [facility] Blood Venous blood specimen / Unknown Venipuncture / Unknown 08/18/2025 6:11 AM EDT 08/18/2025 6:20 AM EDT us Alvarez Brice MD LAB BLOOD ORDERABLES Final Result Performing Organization Address [facility] Co de Phone Number [facility] [address] [place] [address] * (ABNORMAL) Phosphorus (08/18/2025 6:11 AM EDT) Phosphorus, Plasma 4.7(H) 2.5 - 4.5 mg/dL 08/18/2025 6:51 AM EDT [facility] Blood Venous blood specimen / Unknown Venipuncture / Unknown 08/18/2025 6:11 AM EDT 08/18/2025 6:20 AM EDT us Alvarez Brice MD LAB BLOOD ORDERABLES Final Result Performing Organization Address [facility]/ZIP Co de Phone Number [facility] [address] [place] [address] * (ABNORMAL) Magnesium (08/18/2025 6:11 AM EDT) Magnesium, Plasma 1.7(L) 1.9 - 2.4 mg/dL 08/18/2025 6:51 AM EDT [facility] Blood Venous blood specimen / Unknown Venipuncture / Unknown 08/18/2025 6:11 AM EDT 08/18/2025 6:20 AM EDT us Alvarez Brice MD LAB BLOOD ORDERABLES Final Result [facility] [address] [place] [address] * (ABNORMAL) CMP (08/18/2025 6:11 AM EDT) Glucose, Plasma 203(H) 74 - 99 mg/dL 08/18/2025 6:51 AM EDT [facility] BUN, Plasma 41(H) 8 - 23 mg/dL 08/18/2025 6:51 AM EDT [facility] Creatinine, Plasma 2.67(H) 0.60 - 1.10 mg/dL 08/18/2025 6:51 AM EDT [facility] BUN/Creatinine Ratio 15 08/18/2025 6:51 AM EDT [facility] Sodium, Plasma 135(L) 136 - 145 mmol/L 08/18/2025 6:51 AM EDT [facility] Potassium, Plasma 4.1 3.6 - 4.9 mmol/L 08/18/2025 6:51 AM EDT [facility] Chloride, Plasma 101 97 - 107 mmol/L 08/18/2025 6:51 AM EDT [facility] CO2, Plasma 19(L) 22 - 29 mmol/L 08/18/2025 6:51 AM EDT [facility] Anion Gap 15 6 - 16 mmol/L 08/18/2025 6:51 AM EDT [facility] Total Calcium, Plasma 7.8(L) 8.9 - 10.2 mg/dL 08/18/2025 6:51 AM EDT [facility] Total Protein 6.2(L) 6.3 - 7.9 g/dL 08/18/2025 6:51 AM EDT [facility] Albumin, Plasma 3.2(L) 3.5 - 5.2 g/dL 08/18/2025 6:51 AM EDT [facility] AST, Plasma 45(H) 10 - 35 U/L 08/18/2025 6:51 AM EDT [facility] Comment:Hemolyzed, result ma y be falsely increased. ALT, Plasma 17 10 - 35 U/L 08/18/2025 6:51 AM EDT [facility] Alkaline Phosphatase, Plasma 154(H) 46 - 142 U/L 08/18/2025 6:51 AM EDT [facility] Total Bilirubin, Plasma 3.3(H) 0.2 - 1.1 mg/dL 08/18/2025 6:51 AM EDT [facility] eGFRcr 19.5 mL/min/1.7 3m*2 08/18/2025 6:51 AM EDT [facility] Comment:Reported eGFRcr in m L/min/1.73m2 is based the CKD-EPI 2020 equation that does not use a race coefficient. Blood Venous blood specimen / Unknown Venipuncture / Unknown 08/18/2025 6:11 AM EDT 08/18/2025 6:20 AM EDT Alvarez Brice MD LAB BLOOD ORDERABLES Final Result Performing Organization Address City/[facility]/ZIP Co de Phone Number [facility] [address] [place] [address] * (ABNORMAL) PT-INR (08/18/2025 6:11 AM EDT) Prothrombin Time >120.0(H) 12.0 - 14.3 sec 08/18/2025 6:57 AM EDT [facility] INR >15.5(HH) 0.9 - 1.1 08/18/2025 6:57 AM EDT [facility] Blood Venous blood specimen / Unknown Venipuncture / Unknown 08/18/2025 6:11 AM EDT 08/18/2025 6:16 AM EDT Narrative [facility] - 08/18/2025 6:57 AM EDT OPTIMAL INR RANGES FOR PATIENT ON ORAL ANTICOAGULANT THERAPY Prevention of venous thromboembolism INR 2.0 to 3.0 In patients with heart disease: Atrial fibrillation INR 2.0 to 3.0 Valvular heart disease INR 2.0 to 3.0 Tissue heart valves INR 2.0 to 3.0 Mechanical prosthetic valves INR 2.5 to 3.5 Prevention of recurrent TX INR 2.5 to 3.5 cltck Alvarez Brice MD LAB BLOOD ORDERABLES Final Result [facility] [address] [place] [address] * (ABNORMAL) CBC w/diff (08/18/2025 6:11 AM EDT) WBC Count 3.25(L) 3.70 - 10.30 10*3/uL LAB HEMATOLOGY METHOD 08/18/2025 8:54 AM EDT [facility] RBC Count 3.00(L) 3.90 - 5.20 10*6/uL LAB HEMATOLOGY METHOD 08/18/2025 8:54 AM EDT [facility] HGB 9.6(L) 11.2 - 15.7 g/dL LAB HEMATOLOGY METHOD 08/18/2025 8:54 AM EDT [facility] HCT 27.3(L) 34.0 - 45.0 % LAB HEMATOLOGY METHOD 08/18/2025 8:54 AM EDT [facility] Platelet Count 71(L) 155 - 369 10*3/uL LAB HEMATOLOGY METHOD 08/18/2025 8:54 AM EDT [facility] MCV 91 79 - 98 fL LAB HEMATOLOGY METHOD 08/18/2025 8:54 AM EDT [facility] MCH 32.0 26.0 - 32.0 pg LAB HEMATOLOGY METHOD 08/18/2025 8:54 AM EDT [facility] MCHC 35.2 30.7 - 35.5 g/dL LAB HEMATOLOGY METHOD 08/18/2025 8:54 AM EDT [facility] RDW 17.7(H) 11.5 - 14.5 % LAB HEMATOLOGY METHOD 08/18/2025 8:54 AM EDT [facility] MPV 11.6 8.8 - 12.5 fL LAB HEMATOLOGY METHOD 08/18/2025 8:54 AM EDT [facility] nRBC 0.0 <=0.0 per 100 WBCs LAB HEMATOLOGY METHOD 08/18/2025 8:54 AM EDT [facility] Differential Type Automated LAB HEMATOLOGY METHOD 08/18/2025 8:54 AM EDT [facility] Neutrophils % 67 % LAB HEMATOLOGY METHOD 08/18/2025 8:54 AM EDT [facility] Lymphocytes % 16 % LAB HEMATOLOGY METHOD 08/18/2025 8:54 AM EDT [facility] Monocytes % 11 % LAB HEMATOLOGY METHOD 08/18/2025 8:54 AM EDT [facility] Eosinophils % 5 % LAB HEMATOLOGY METHOD 08/18/2025 8:54 AM EDT [facility] Basophils % 1 % LAB HEMATOLOGY METHOD 08/18/2025 8:54 AM EDT [facility] Immature Granulocytes % 0 % LAB HEMATOLOGY METHOD 08/18/2025 8:54 AM EDT [facility] Neutrophils Absolute 2.14 1.60 - 6.10 10*3/uL LAB HEMATOLOGY METHOD 08/18/2025 8:54 AM EDT [facility] Lymphocytes Absolute 0.53(L) 1.20 - 3.90 10*3/uL LAB HEMATOLOGY METHOD 08/18/2025 8:54 AM EDT [facility] Monocytes Absolute 0.37 0.30 - 0.90 10*3/uL LAB HEMATOLOGY METHOD 08/18/2025 8:54 AM EDT [facility] Eosinophils Absolute 0.16 0.00 - 0.50 10*3/uL LAB HEMATOLOGY METHOD 08/18/2025 8:54 AM EDT [facility] Basophils Absolute 0.04 0.00 - 0.10 10*3/uL LAB HEMATOLOGY METHOD 08/18/2025 8:54 AM EDT [facility] Immature Granulocytes Absolute 0.01 0.00 - 0.06 10*3/uL LAB HEMATOLOGY METHOD 08/18/2025 8:54 AM EDT [facility] Blood Venous blood specimen / Unknown Venipuncture / Unknown 08/18/2025 6:11 AM EDT 08/18/2025 6:16 AM EDT [facility] - 08/18/2025 8:54 AM EDT Therapeutic decision making should be based on absolute values, rather than percentages. us Alvarez Brice MD LAB BLOOD ORDERABLES Final Result [facility] [address] [place] [address] documented in this encounter Visit Diagnoses Diagnosis Hepatic encephalopathy (CMS/HCC)- Primary Hepatic encephalopathy Hepatic encephalopathy (CMS/HCC) Hepatic encephalopathy Urinary tract infection without hematuria, site unspecified Hx of spontaneous bacterial peritonitis JONATHAN treated with BiPAP Type 2 diabetes mellitus, with long-term current use of insulin Pleural effusion associated with hepatic disorder Other specified forms of effusion, except tuberculous Cirrhosis of liver with ascites Hyponatremia with excess extracellular fluid volume Hyposmolality and/or hyponatremia Acute kidney injury superimposed on stage 3b chronic kidney disease documented in this encounter Admitting Diagnoses Diagnosis Hepatic encephalopathy (CMS/HCC) Hepatic encephalopathy documented in this encounter Administered Medications Inactive Administered Medications - up to 3 most recent administrations Medication Order MAR Action Action Date Dose Rate Site bumetanide (Bumex) tablet 0.5 mg 0.5 mg, Oral, 3 times weekly (Once per day on Tuesday), First dose on Tue08/19/25 at 0900, Until Discontinued, Routine Given 08/19/2025 9:13 AM EDT 0.5 mg calcitriol (Rocaltrol) capsule 0.25 mcg 0.25 mcg, Oral, Daily, First dose on Tue08/18/25 at 1600, Until Discontinued, Routine Given 08/20/2025 8:08 AM EDT 0.25 mcg Given 08/19/2025 9:13 AM EDT 0.25 mcg Given 08/18/2025 3:44 PM EDT 0.25 mcg calcium carbonate (Tums) chewable tablet 750 mg 750 mg, Oral, Daily, First dose on Tue08/18/25 at 1600, Until Discontinued Given 08/20/2025 8:08 AM EDT 750 mg Given 08/19/2025 9:13 AM EDT 750 mg Given 08/18/2025 3:46 PM EDT 750 mg cefTRIAXone (Rocephin) 2 g in sodium chloride 0.9% 100 mL IVPB (vial adapter required) 2 g, Intravenous, Every 24 hours, 2 doses, First dose on Tue08/18/25 at 1615, Last dose on Tue08/19/25 at 1615, Routine New Bag 08/19/2025 4:15 PM EDT 2 g 220 mL/hr New Bag 08/18/2025 3:43 PM EDT 2 g 220 mL/hr cetirizine (ZyrTEC) tablet 10 mg 10 mg, Oral, Daily, First dose on Tue08/18/25 at 1600, Until Discontinued, Routine Given 08/20/2025 8:08 AM EDT 10 mg Given 08/19/2025 9:13 AM EDT 10 mg Given 08/18/2025 3:44 PM EDT 10 mg cholecalciferol (Vitamin D-3) tablet 1,000 Units 1,000 Units, Oral, Daily, First dose on Tue08/18/25 at 1600, Until Discontinued, Routine Given 08/20/2025 8:08 AM EDT 1,000 Units Given 08/19/2025 9:13 AM EDT 1,000 Units Given 08/18/2025 3:45 PM EDT 1,000 Units ciprofloxacin (Cipro) tablet 500 mg 500 mg, Oral, Daily, First dose on Tue08/18/25 at 1600, Until Discontinued, Routine Given 08/19/2025 9:13 AM EDT 500 mg Given 08/18/2025 3:44 PM EDT 500 mg dextrose 10 % (D10W) bolus 125 mL 125 mL, Intravenous, Every 15 min PRN, Starting on Tue08/18/25 at 1515, Until Tue08/20/25 at 1715, Administer over 15 Minutes, Routine, low blood sugar BG 51-89 mg/dL dextrose 10 % (D10W) bolus 250 mL 250 mL, Intravenous, Every 15 min PRN, Starting on Tue08/18/25 at 1515, Until Tue08/20/25 at 1715, Administer over 15 Minutes, Routine, PRN low blood sugar BG =/<50 mg/dL glucagon (human recombinant) injection 1 mg 1 mg, Intramuscular, Every 15 min PRN, Starting on Tue08/18/25 at 1515, Until Tue08/20/25 at 1715, Routine, low blood sugar per Hypoglycemia Prevention and Treatment protocol glucose (Glutose) 40 % oral gel 15-30 grams of glucose 15-30 grams of glucose, Sublingual, Every 15 min PRN, Starting on Tue08/18/25 at 1515, Until Tue08/20/25 at 1715, Routine, low blood sugar, per Hypoglycemia Prevention and Treatment protocol heparin (porcine) injection 5,000 Units 5,000 Units, Subcutaneous, Every 8 hours scheduled, First dose on Tue08/18/25 at 1345, Until Discontinued, Routine Given 08/18/2025 1:11 PM EDT 5,000 Units Left Lower Abdomen insulin glargine-yfgn 100 UNIT/ML injection 24 Units 24 Units, Subcutaneous, Daily, First dose on Tue08/19/25 at 0900, Until Discontinued, Routine Given 08/19/2025 9:12 AM EDT 24 Units Left Upper Arm (Back ) insulin glargine-yfgn 100 UNIT/ML injection 24 Units 24 Units, Subcutaneous, Nightly, First dose (after last modification) on Tue08/19/25 at 2100, Until Discontinued, Routine Given 08/19/2025 8:23 PM EDT 24 Units Left Lower Abdomen insulin lispro (Admelog) 100 units/mL injection - Correction - Resistant Dose 0-10 Units, Subcutaneous, 3 times daily with meals, First dose on 08/18/25 at 1730, Until Discontinued, Routine Given 08/20/2025 12:31 PM EDT 6 Units Left Lower Abdomen Given 08/20/2025 8:09 AM EDT 6 Units Le ft Upper Arm (Back) Given 08/19/2025 5:11 PM EDT 10 Units Le ft Lower Abdomen insulin lispro (Admelog) injection - Correction - Nighttime Dose 0-3 Units, Subcutaneous, 2 times nightly (2100 & 0300), First dose on Tue08/18/25 at 2100, Until Discontinued, Routine Given 08/20/2025 3:44 AM EDT 1 Units Left Lower Abdomen Given 08/19/2025 8:36 PM EDT 3 Units Le ft Lower Abdomen Given 08/19/2025 3:25 AM EDT 1 Units Le ft Upper Arm (Back) Insulin Lispro (Admelog, HumaLOG) 100 UNIT/ML injection 3 Units 3 Units, Subcutaneous, Once, 1 dose, On Tue08/19/25 at 2130, Routine Given 08/19/2025 8:36 PM EDT 3 Units Left Lower Abdomen lactulose (Chronulac) 10 GM/15ML solution 20 g 20 g, Oral, 3 times daily, First dose on Tue08/18/25 at 1600, Until Discontinued, Routine Given 08/20/2025 8:08 AM EDT 20 g Given 08/19/2025 8:22 PM EDT 20 g Given 08/19/2025 4:15 PM EDT 20 g magnesium hydroxide (Milk of Magnesia) 400 MG/5ML suspension 15 mL 15 mL, Oral, Daily, First dose on Tue08/18/25 at 1600, Until Discontinued Given 08/18/2025 3:44 PM EDT 15 mL magnesium sulfate IVPB 2 g 2 g, Intravenous, Once, 1 dose, On Tue08/20/25 at 0745, Routine New Bag 08/20/2025 8:08 AM EDT 2 g 25 mL/hr midodrine (Proamatine) tablet 15 mg 15 mg, Oral, 3 times daily, First dose on Tue08/18/25 at 1600, Until Discontinued, Routine Given 08/20/2025 8:08 AM EDT 15 mg Given 08/19/2025 8:22 PM EDT 15 mg Given 08/19/2025 4:15 PM EDT 15 mg prochlorperazine (Compazine) tablet 5 mg 5 mg, Oral, Every 8 hours PRN, Starting on Tue08/18/25 at 1512, Until Tue08/20/25 at 1715, Routine, nausea, vomiting Given 08/19/2025 3:35 AM EDT 5 mg rifAXIMin (Xifaxan) tablet 550 mg 550 mg, Oral, 2 times daily, First dose on Tue08/18/25 at 2100, Until Discontinued, Routine Given 08/20/2025 8:08 AM EDT 550 mg Given 08/19/2025 8:22 PM EDT 550 mg Given 08/19/2025 9:13 AM EDT 550 mg senna (Senokot) tablet 8.6 mg 8.6 mg (1 tablet), Oral, Nightly, First dose on Tue08/18/25 at 2100, Until Discontinued, Routine Given 08/19/2025 8:22 PM EDT 8.6 mg Given 08/18/2025 9:35 PM EDT 8.6 mg sodium chloride 0.9 % flush 10 mL 10 mL, Intravenous, Every 12 hours, First dose on Tue08/18/25 at 1345, Until Discontinued, Routine Given 08/20/2025 12:58 PM EDT 10 mL Given 08/20/2025 12:46 AM EDT 10 mL Given 08/18/2025 1:09 PM EDT 10 mL sodium chloride 0.9 % flush 10 mL 10 mL, Intravenous, As needed, Starting on Tue08/18/25 at 1253, Until Tue08/20/25 at 1715, Routine, line care documented in this encounter Active and Recently Administered Medications Times are shown in EDT. Scheduled Medication Order 08/18/2025 08/19/2025 08/20/2025 bumetanide (Bumex) tablet 0.5 mg 0.5 mg, Oral, 3 times weekly (Once per day on Tuesday), First dose on Tue08/19/25 at 0900, Until Discontinued, Routine 09 (Given - Provider: Eryn Muñoz) calcitriol (Rocaltrol) capsule 0.25 mcg 0.25 mcg, Oral, Daily, First dose on 08/18/25 at 1600, Until Discontinued, Routine 1544 (Given - Provider: Nargis Hou RN) 09 (Given - Provider: Eryn Muñoz) 08 (Given - Provider: Laverne Booth RN) calcium carbonate (Tums) chewable tablet 750 mg 750 mg, Oral, Daily, First dose on 08/18/25 at 1600, Until Discontinued 1546 (Given - Provider: Nargis Hou RN) 09 (Given - Provider: Eryn Muñoz) 08 (Given - Provider: Laverne Booth RN) cefTRIAXone (Rocephin) 2 g in sodium chloride 0.9% 100 mL IVPB (vial adapter required) (COMPLETED) 2 g, Intravenous, Every 24 hours, 2 doses, First dose on 08/18/25 at 1615, Last dose on Tue08/19/25 at 1615, Routine 1543 (New Bag - Provider: Nargis Hou RN) 1615 (New Bag - Provider: Eryn Muñoz) cetirizine (ZyrTEC) tablet 10 mg 10 mg, Oral, Daily, First dose on 08/18/25 at 1600, Until Discontinued, Routine 1544 (Given - Provider: Nargis Hou RN) 09 (Given - Provider: Eryn Muñoz) 08 (Given - Provider: Laverne Booth RN) cholecalciferol (Vitamin D-3) tablet 1,000 Units 1,000 Units, Oral, Daily, First dose on 08/18/25 at 1600, Until Discontinued, Routine 1545 (Given - Provider: Nargis Hou RN) 0913 (Given - Provider: Eryn Muñoz) 0808 (Given - Provider: Laverne Booth, PARK) ciprofloxacin (Cipro) tablet 500 mg (CANCELED) 500 mg, Oral, Daily, First dose on Tue08/18/25 at 1600, Until Discontinued, Routine 1544 (Given - Provider: Nargis Hou, PARK) 0913 (Given - Provider: Eryn Muñoz) heparin (porcine) injection 5,000 Units (CANCELED) 5,000 Units, Subcutaneous, Every 8 hours scheduled, First dose on Tue08/18/25 at 1345, Until Discontinued, Routine 1311 (Given - Provider: Nargis Hou, PARK) insulin glargine-yfgn 100 UNIT/ML injection 24 Units (CANCELED) 24 Units, Subcutaneous, Daily, First dose on Tue08/19/25 at 0900, Until Discontinued, Routine 911 (Given - Provider: Eryn Muñoz) insulin glargine-yfgn 100 UNIT/ML injection 24 Units 24 Units, Subcutaneous, Nightly, First dose (after last modification) on Tue08/19/25 at 2100, Until Discontinued, Routine 2022 (Given - Provider: Neyda Cosme) insulin lispro (Admelog) 100 units/mL injection - Correction - Resistant Dose 0-10 Units, Subcutaneous, 3 times daily with meals, First dose on 08/18/25 at 1730, Until Discontinued, Routine 171 (Given - Provider: Nargis Hou RN) 0911 (Given - Provider: Eryn Muñoz)1157 (Given - Provider: Eryn Muñoz)1711 (Given - Provider: Eryn Muñoz) 0809 (Given - Provider: Laverne Booth, PARK)1231 (Given - Provider: Laverne Booth, PARK) insulin lispro (Admelog) injection - Correction - Nighttime Dose 0-3 Units, Subcutaneous, 2 times nightly (2100 & 0300), First dose on Tue08/18/25 at 2100, Until Discontinued, Routine 2228 (Given - Provider: Melissa Carney RN - Comment: Dr Ball wanted to see pt, then asked to recheck) 324 (Given - Provider: Melissa Carney RN)2035 (Given - Provider: Neyda Cosme) 343 (Given - Provider: Neyda Cosme) Insulin Lispro (Admelog, HumaLOG) 100 UNIT/ML injection 3 Units (COMPLETED) 3 Units, Subcutaneous, Once, 1 dose, On Tue08/19/25 at 2130, Routine 2035 (Given - Provider: Neyda Cosme) lactulose (Chronulac) 10 GM/15ML solution 20 g 20 g, Oral, 3 times daily, First dose on Tue08/18/25 at 1600, Until Discontinued, Routine 1544 (Given - Provider: Nargis Hou RN)213 (Given - Provider: Melissa Carney, PARK) 09 (Given - Provider: Eryn Muñoz)161 (Given - Provider: Eryn Muñoz)2021 (Given - Provider: Neyda Cosme) 0808 (Given - Provider: Laverne Booth, PARK)1600 (Canceled Entry - Provider: Automatic Discharge Provider - Comment: Automatically canceled at discontinue of medication order) magnesium hydroxide (Milk of Magnesia) 400 MG/5ML suspension 15 mL (CANCELED) 15 mL, Oral, Daily, First dose on Tue08/18/25 at 1600, Until Discontinued 154 (Given - Provider: Nargis Huo, PARK) magnesium sulfate IVPB 2 g (COMPLETED) 2 g, Intravenous, Once, 1 dose, On Tue08/20/25 at 0745, Routine 08 (New Bag - Provider: Laverne Booth, PARK) midodrine (Proamatine) tablet 15 mg 15 mg, Oral, 3 times daily, First dose on Tue08/18/25 at 1600, Until Discontinued, Routine 154 (Given - Provider: Nargis Hou, PARK)2133 (Given - Provider: Melissa Carney, PARK) 0914 (Given - Provider: Eryn Muñoz)161 (Given - Provider: Eryn Muñoz)2021 (Given - Provider: Neyda Cosme) 0808 (Given - Provider: Laverne Booth, PARK)1600 (Canceled Entry - Provider: Automatic Discharge Provider - Comment: Automatically canceled at discontinue of medication order) rifAXIMin (Xifaxan) tablet 550 mg 550 mg, Oral, 2 times daily, First dose on Tue08/18/25 at 2100, Until Discontinued, Routine 2133 (Given - Provider: Melissa Carney RN) 0913 (Given - Provider: Eryn Muñoz)2021 (Given - Provider: Neyda Cosme) 0808 (Given - Provider: Laverne Booth, PARK) senna (Senokot) tablet 8.6 mg 8.6 mg (1 tablet), Oral, Nightly, First dose on 08/18/25 at 2100, Until Discontinued, Routine 2134 (Given - Provider: Melissa Carney RN) 2021 (Given - Provider: Neyda Cosme) sodium chloride 0.9 % flush 10 mL(Linked Group 1) 10 mL, Intravenous, Every 12 hours, First dose on 08/18/25 at 1345, Until Discontinued, Routine 1309 (Given - Provider: Nargis Hou RN) 0049 (Not Given - Provider: Melissa Carney RN - Reason: Patient/family refused)1655 (Not Given - Provider: Eryn Muñoz - Reason: Patient in procedure) 0046 (Given - Provider: Neyda Cosme)1258 (Given - Provider: Laverne Booth RN) PRN Medication Order 08/18/2025 08/19/2025 08/20/2025 carboxymethylcellulose PF (Refresh Plus) 0.5 % ophthalmic solution 1 drop 1 drop, Both Eyes, As needed, Starting on 08/18/25 at 1509, Until Tue08/20/25 at 1715, Routine, dry eyes dextrose 10 % (D10W) bolus 125 mL(Linked Group 2) 125 mL, Intravenous, Every 15 min PRN, Starting on 08/18/25 at 1515, Until Tu08/20/25 at 1715, Administer over 15 Minutes, Routine, low blood sugar BG 51-89 mg/dL dextrose 10 % (D10W) bolus 250 mL(Linked Group 2) 250 mL, Intravenous, Every 15 min PRN, Starting on 08/18/25 at 1515, Until Tu08/20/25 at 1715, Administer over 15 Minutes, Routine, PRN low blood sugar BG =/<50 mg/dL glucagon (human recombinant) injection 1 mg(Linked Group 2) 1 mg, Intramuscular, Every 15 min PRN, Starting on 08/18/25 at 1515, Until Tue08/20/25 at 1715, Routine, low blood sugar per Hypoglycemia Prevention and Treatment protocol glucose (Glutose) 40 % oral gel 15-30 grams of glucose(Linked Group 2) 15-30 grams of glucose, Sublingual, Every 15 min PRN, Starting on Tue08/18/25 at 1515, Until Tue08/20/25 at 1715, Routine, low blood sugar, per Hypoglycemia Prevention and Treatment protocol prochlorperazine (Compazine) tablet 5 mg 5 mg, Oral, Every 8 hours PRN, Starting on Tue08/18/25 at 1512, Until Tue08/20/25 at 1715, Routine, nausea, vomiting 0335 (Given - Provider: Paolo Carney RN) sodium chloride 0.9 % flush 10 mL(Linked Group 1) 10 mL, Intravenous, As needed, Starting on Tue08/18/25 at 1253, Until Tue08/20/25 at 1715, Routine, line care Linked Groups Order Group 1: Insert peripheral IV (CANCELED) Once, On Tue08/18/25 at 1254, For 1 occurrence And Saline lock IV (CANCELED) Once, On Tue08/18/25 at 1254, For 1 occurrence And sodium chloride 0.9 % flush 10 mLJump to med 10 mL, Intravenous, Every 12 hours, First dose on Tue08/18/25 at 1345, Until Discontinued, Routine And sodium chloride 0.9 % flush 10 mLJump to med 10 mL, Intravenous, As needed, Starting on Tue08/18/25 at 1253, Until Tue08/20/25 at 1715, Routine, line care Group 2: glucose (Glutose) 40 % oral gel 15-30 grams of glucoseJump to med 15-30 grams of glucose, Sublingual, Every 15 min PRN, Starting on Tue08/18/25 at 1515, Until Tue08/20/25 at 1715, Routine, low blood sugar, per Hypoglycemia Prevention and Treatment protocol Or dextrose 10 % (D10W) bolus 125 mLJump to med 125 mL, Intravenous, Every 15 min PRN, Starting on Tue08/18/25 at 1515, Until Tue08/20/25 at 1715, Administer over 15 Minutes, Routine, low blood sugar BG 51-89 mg/dL Or dextrose 10 % (D10W) bolus 250 mLJump to med 250 mL, Intravenous, Every 15 min PRN, Starting on Tue08/18/25 at 1515, Until Tue08/20/25 at 1715, Administer over 15 Minutes, Routine, PRN low blood sugar BG =/<50 mg/dL Or glucagon (human recombinant) injection 1 mgJump to med 1 mg, Intramuscular, Every 15 min PRN, Starting on Tue08/18/25 at 1515, Until Tue08/20/25 at 1715, Routine, low blood sugar per Hypoglycemia Prevention and Treatment protocol documented in this encounter Additional Health Concerns Assessment Noted Time PHQ-9 Depression Total Score: 6 06/11/20 10:59 AM EDT A fall risk assessment has been complete d for the patient 06/25/2025 12:59 PM EDT A Body Mass Index follow-up plan has been documented for the patient 08/20/2025 11:26 AM EDT documented as of this encounter Care Teams Cook Helper Fruit Relationship Specialty Start Date End Date Alvarez Zimmer MD [address] [place] [phone] PCP - General Family Medicine 12/07/24 Lea Fernando [address] [facility] [address] [place] [phone] [employer] [facility] 08/29/24 Rachel Ray, STOCK CLERK [facility] [address] [facility] [address] [place] [phone] Nurse Practitioner Gastroenterology 09/24/24 Tamera Isabel LPN VALUE-BASED TRANSFORMATION PROGRAM Licensed Practical Nurse 05/29/25 documented as of this encounter
--- OUTSIDE RECORDS SUMMARY | 2025-08-22 08:54 | XMS_ITS | Encounter Summary ---
Author Organization [facility] Address [address] [place] [address] Care Team Providers Care Mail Carrier Technician Name Role Phone Lea Fernando Unavailable [phone] Rcahel Ray COMMERCIAL LINES INSURANCE AGENT Unavailable [phone] Alvarez Zimmer MD Primary Care Provider [phone] Tamera Isabel REPAIRER EVAPORATOR Unavailable Unavailabl Shaniqua Centeno LPN Unavailable Unavailable Reason for Referral * Clinic-Administered Medication (Routine) - Closed Specialty Diagnoses / Procedures Referred By Contac t Referred To Contact Diagnoses Other ascites Procedures [place] ABDOM PARACENTESIS DX/THER W IMAGING GUIDANCE Shaniqua Mccurdy APRN [address] [place] [address] Phone: tel: fax: [facility] [address] [place] [address] Phone: tel: fax: Referral ID Status Reason Start Date Expiration Date Visits Re quested Visits Authorized [id number] Closed 08/22/2025 02/21/2027 1 1 * Imaging (Routine) - Closed Specialty Diagnoses / Procedures Referred By Contac t Referred To Contact Radiology Diagnoses Alcoholic cirrhosis of liver with ascites Procedures US Guided Abdominal Paracentesis Marianna Gordon APRN [address] [place] [address] Phone: tel: fax: Referral ID Status Reason Start Date Expiration Date Visits Re quested Visits Authorized [id number] Closed 08/09/2025 02/08/2027 1 1 * Imaging (Routine) - Closed Specialty Diagnoses / Procedures Referred By Eder zhu Referred To Contact Radiology Diagnoses Other ascites Procedures US Guided Thoracentesis Marianna Gordon APRN [address] [place] [address] Phone: tel: fax: Referral ID Status Reason Start Date Expiration Date Visits Re quested Visits Authorized [id number] Closed 08/09/2025 02/08/2027 1 1 Reason for Visit * Imaging (Routine) - Closed Specialty Diagnoses / Procedures Referred By Eder zhu Referred To Contact Radiology Diagnoses Other ascites Procedures US Guided Thoracentesis Marianna Gordon APRN [address] [place] [address] Phone: tel: fax: Referral ID Status Reason Start Date Expiration Date Visits Re quested Visits Authorized [id number] Closed 08/09/2025 02/08/2027 1 1 Encounter Details Date Type Department Care Team (Latest Contact Info) Description 08/22/2025 8:54 AM EDT - 08/22/2025 12:19 PM EDT Hospital Encounter [facility] Interventional Radiology [address] [place] [address] Candy Ness IS CONSULTANT Other ascites; Alcoholic cirrhosis of liver with [...] 01/10/2025 How often do you attend [facility] or latter-day services? Patient unable to [...] more drinks on one occasion? Never 06/25/2025 [facility] [...] in the past 12 m [facility], were you homeless or living in a long term (including now)? No 08/19/2025 [facility] Utilities Answer Date Recorded In the past 12 months has th [employer], gas, oil, or water company threatened to [...] first t kennedy in the morning (EYE-BUSINESS MANAGER) to steady your nerves or to [...] 1 03/01/2025 ergocalciferol (Vitamin D-2) 1.25 MG (27703 UT) capsuleIndication s:Vitamin D deficiency Take 1 [...] paracentesis and thoracentesis. Source Note - Shaniqua Mccurdy APRN - [...] is no recent study available for direct syko-mo-jauc comparison. Assessment & Plan: Decompensated cirrhosis, MASH [...] the care of this patient. Shaniqua Mccurdy, COMMERCIAL LINES INSURANCE AGENT Interventional Radiology [phone] [1] Past Medical History: Diagnosis Date ADHD (attention deficit hyperactivity disorder) Allergic Anxiety disorder, unspecified Anxiety Bleeding gums Blood in urine Cataract Chronic kidney disease Cirrhosis (CMS/HCC) Colon cancer screening 09/20/2019 Added automatically from request for surgery [id number] Coronary artery disease Depression 1996 Diabetes mellitus [...] 1979 BLADDER SURGERY N/A Bladder surgery from [facility] BREAST BIOPSY 2011 BREAST SURGERY 2010 BUNIONECTOMY Right CATARACT EXTRACTION Bilateral 2016 CHOLECYSTECTOMY 1980 ESOPHAGOGASTRODUODENOSCOPY HYSTERECTOMY N/A Hysterectomy from [facility] KNEE SURGERY Bilateral ORAL SURGERY N/A Oral surgery from [facility] OTHER SURGICAL HISTORY 2015 ROOT CANAL WISDOM [...] Rfl: 1 ergocalciferol (Vitamin D-2) 1.25 MG (28800 UT) capsule, Take 1 capsule by mouth [...] 1:00 PM EDT Office Visit [facility] Endocrinology [address] [place] [address] Miranda Hobson APRN [address] [place] [address] 08/29/2025 10:00 AM EDT Appointment [facility] Interventional Radiology [address] [place] [address] 08/29/2025 11:00 AM EDT Appointment [facility] Interventional Radiology [address] [place] [address] 09/03/2025 8:40 AM EDT Office Visit [facility] [address] [facility], [address] [place] [address] Lillie Pritchard MD [address] [place] [address] 09/05/2025 10:00 AM EDT Appointment [facility] Interventional Radiology [address] [place] [address] 09/05/2025 11:00 AM EDT Appointment [facility] Inter[facility] Radiology [address] [place] [address] 09/17/2025 9:45 AM EDT Clinical Support [facility] [place] [address] [place] [address] 09/17/2025 10:30 AM EDT Social Work [facility] [place] [address] [place] [address] Lea Reilly, [place] [address] 09/17/2025 11:20 AM EDT Office Visit [facility] [place] [address] [place] [address] Octavia Herrera, PA [address] [place] [address] documented as of this encounter Procedures Procedure [...] on 08/22/2025 1:19 PM us Shaniqua Mccurdy APRN IMG XR [...] this written report. Preliminary report signed by SOALNGE Singleton on 08/22/2025 1:24 PM By electronically [...] complicated by ascites and hepatic hydrothorax. TECHNIQUE: Expediter Service Order: Shaniqua Mccurdy APRN Secondary Environmental Emergencies Assistant: None. Rad Dose: NA Medications: Continuous physiologic [...] cirrhosis complicated by ascites andhepatic hydrothorax. TECHNIQUE: Expediter Service Order: Shaniqua Mccurdy APRN Secondary Environmental Emergencies Assistant: None. Rad Dose: NA Medications: Continuous physiologic [...] MD on 08/22/2025 5:40 PM us Marianna N Evan COMMERCIAL LINES INSURANCE AGENT IMG US PROCEDURES Final Resu lt * [...] complicated by ascites and hepatic hydrothorax. TECHNIQUE: Expediter Service Order: Shaniqua Mccurdy APRN Secondary Environmental Emergencies Assistant: None. Rad Dose: NA Medications: Continuous physiologic [...] cirrhosis complicated by ascites andhepatic hydrothorax. TECHNIQUE: Expediter Service Order: Shaniqua Mccurdy APRN Secondary Environmental Emergencies Assistant: None. Rad Dose: NA Medications: Continuous physiologic [...] MD on 08/22/2025 5:42 PM us Marianna Dixon Gordon COMMERCIAL LINES INSURANCE AGENT IMG US PROCEDURES Final Resu lt * Body fluid, cytospin, pathologist interpretation (08/22/2025 11:06 AM EDT) Specimen Type Body Fluid LAB HEMATOLOGY METHOD 08/23/2025 2:36 PM EDT [facility] Specimen Source, Body Fluid Peritoneal Fluid LAB HEMATOLOGY METHOD 08/23/2025 2:36 PM EDT [facility] Clinical Diagnosis, Body Fluid Cirrhosis, ascites LAB HEMATOLOGY METHOD 08/23/2025 2:36 PM EDT [facility] Interpretation , Body Fluid No evidence of malignancy; chronic inflammatory cells (lymphocytosis) , moderate blood A resident was involved in the service. I attest I examined the relevant preparations for the specimens and confirmed the diagnosis or interpretation. 08/23/2025 2:36 PM EDT [facility] Pathologist Signature, Body Fluid 08/23/2025 2:36 PM EDT [facility] Comment:Reviewed by: Iza Blue MD LAB CP ASR DISCLAIMER Yes 08/23/2025 2:36 PM EDT [facility] Body Fluid Peritoneal fluid / Unknown Non-blood Collection / Unknown 08/22/2025 11:06 AM EDT 08/22/2025 12:17 PM EDT Shaniqua Mccurdy COMMERCIAL LINES INSURANCE AGENT LAB BODY FLUIDS AND STOOLS O RDERABLES Final Result Performing Organization Address [facility] Co de Phone Number [facility] [address] [place] [address] * Glucose - Ascites (08/22/2025 11:06 AM EDT) Glucose, Fluid 345 mg/dL 08/22/2025 1:08 PM EDT [facility] Peritoneal Fluid Peritoneal cavity structure / Unknown Non-blood Collection / Unknown 08/22/2025 11:06 AM EDT 08/22/2025 12:17 PM EDT Narrative [facility] - 08/22/2025 1:08 PM EDT Peritoneal/Ascites [...] RDERABLES Final Result Performing Organization Address [facility] Co de Phone Number [facility] [address] [place] [address] * Protein - Ascites (08/22/2025 11:06 AM EDT) Total Protein, Fluid 1 g/dL 08/22/2025 1:08 PM EDT [facility] Peritoneal Fluid Peritoneal cavity structure / Unknown Non-blood Collection / Unknown 08/22/2025 11:06 AM EDT 08/22/2025 12:17 PM EDT Narrative [facility] - 08/22/2025 1:08 PM EDT This test was developed and its performance characteristics determined by [facility]. The U.S. Food and Drug Administration has not approved or cleared this test. However, FDA clearance or approval is not currently required for clinical use. The results are not intended to be used as the sole means for clinical diagnosis or patient management decisions. us Shaniqua Mccurdy COMMERCIAL LINES INSURANCE AGENT LAB BODY FLUIDS AND STOOLS O RDERABLES Final Result [facility] [address] [place] [address] * (ABNORMAL) Body Fluid Cell Count With Diff - Ascites (08/22/2025 11:06 AM EDT) Color, Body fluid [place] LAB HEMATOLOGY METHOD 08/22/2025 6:59 PM EDT [facility] Appearance, Body fluid Cloudy(A) LAB HEMATOLOGY METHOD 08/22/2025 6:59 PM EDT [facility] Volume, Body fluid 9.0 cc LAB HEMATOLOGY METHOD 08/22/2025 6:59 PM EDT [facility] Fluid Container Tube 2 LAB HEMATOLOGY METHOD 08/22/2025 6:59 PM EDT [facility] Red Blood Cell Count, Body fluid 8,000 uL LAB HEMATOLOGY METHOD 08/22/2025 6:59 PM EDT [facility] Total Nucleated Cell Count, Body fluid 176 uL LAB HEMATOLOGY METHOD 08/22/2025 6:59 PM EDT [facility] Neutrophils %, Body fluid 2 % LAB HEMATOLOGY METHOD 08/22/2025 6:59 PM EDT [facility] Lymphocytes %, Body fluid 91 % LAB HEMATOLOGY METHOD 08/22/2025 6:59 PM EDT [facility] Monocytes/Macro phages %, Body fluid 5 % LAB HEMATOLOGY METHOD 08/22/2025 6:59 PM EDT [facility] Eosinophils %, Body fluid 0 % LAB HEMATOLOGY METHOD 08/22/2025 6:59 PM EDT [facility] Lining/Mesothel ial Cells %, Body fluid 2 % LAB HEMATOLOGY METHOD 08/22/2025 6:59 PM EDT [facility] Neutrophils Absolute (PMN), Body fluid 4 uL LAB HEMATOLOGY METHOD 08/22/2025 6:59 PM EDT [facility] Lymphocytes Absolute, Body fluid 160 uL LAB HEMATOLOGY METHOD 08/22/2025 6:59 PM EDT [facility] Monocytes/Macro phages Absolute, Body fluid 9 uL LAB HEMATOLOGY METHOD 08/22/2025 6:59 PM EDT [facility] Eosinophils Absolute, Body fluid 0 uL LAB HEMATOLOGY METHOD 08/22/2025 6:59 PM EDT [facility] Basophils Absolute, Body fluid 0 uL LAB HEMATOLOGY METHOD 08/22/2025 6:59 PM EDT [facility] Lining/Mesothel ial Cells Absolute, Body fluid 4 uL LAB HEMATOLOGY METHOD 08/22/2025 6:59 PM EDT [facility] Basophils %, Body fluid 0 % LAB HEMATOLOGY METHOD 08/22/2025 6:59 PM EDT [facility] Body Fluid Peritoneal fluid / Unknown Non-blood Collection / Unknown 08/22/2025 11:06 AM EDT 08/22/2025 12:17 PM EDT Shaniqua Mccurdy COMMERCIAL LINES INSURANCE AGENT LAB BODY FLUIDS AND STOOLS ORDERABLES NO SPECIMEN TYPE/SOURCE Final Result [facility] [address] [place] [address] documented in this encounter Visit Diagnoses Diagnosis [...] as of this encounter Care Teams Mail Carrier Technician Relationship Specialty Start Date End Date Alvarez Zimmer MD [address] [place] [address] PCP - General Family Medicine 12/07/24 Lea Fernando [address] [facility] [address] [place] [address] Business Administration Program Chair Endocrinology 08/29/24 Rachel Ray APRN [address] [place] [address] Nurse Practitioner Gastroenterology 09/24/24 Tamera Isabel LPN VALUE-BASED TRANSFORMATION PROGRAM Licensed Practical Nurse 05/29/25 Shaniqua Trevino LPN TCM Nurse 08/21/25 documented as of this encounter
--- OUTSIDE RECORDS SUMMARY | 2025-08-22 12:20 | XMS_ITS | Encounter Summary ---
Author Organization [facility] Address [address] [place] [address] Care Team Providers Care Telecommunications Project Manager Name Role Phone Lea Fernando Unavailable [phone] Rachel Ray TECHNICAL SERVICES MANAGER Unavailable [phone] Alvarez Zimmer MD Primary Care Provider [phone] Tamera Isabel AFTER SCHOOL DRIVER Unavailable UnavailShaniqua Lomeli AFTER SCHOOL DRIVER Unavailable Unavailable Encounter Details Date Type Department Care Team (Latest Contact Info) Description 08/22/2025 12:20 PM EDT - 08/22/2025 11:59 PM EDT Hospital Encounter [facility] Radiology [address] [place] [address] Arrived Discharge Disposition: Home or Self Care [...] often do you attend [facility] or mormon services? Patient unable to answer 01/10/2025 Do you belong to any clubs o r organizations such as gnosticist groups, unions, [employer] or athletic groups, or school groups? Patient [...] Never 06/25/2025 [facility] - Occupational Stress Questionnaire Answer [...] time in the past 12 m [facility], were you homeless or living in a retirement (including now)? No 08/19/2025 [facility] Utilities Answer Date Recorded In the past [...] drink first t kennedy in the morning (EYE-DISTRIBUTION ENGINEER) to steady your nerves or to [...] 1 03/01/2025 ergocalciferol (Vitamin D-2) 1.25 MG (62244 UT) capsuleIndication s:Vitamin D deficiency Take 1 [...] nightly. 07/09/2025 documented as of this encounter Plan of Treatment Upcoming Encounters Date Type Department Care Team (Late st Contact Info) Description 08/26/2025 1:00 PM EDT Office Visit [facility] Endocrinology [address] [place] [phone] Miranda Hobson, TECHNICAL SERVICES MANAGER [address] [place] [address] 08/29/2025 10:00 AM EDT Appointment [facility] Inter[facility] Radiology [address] [place] [address] 08/29/2025 11:00 AM EDT Appointment [facility] Inter[facility] Radiology [address] [place] [address] 09/03/2025 8:40 AM EDT Office Visit [facility] [address], [address] [place] [address] Lillie Pritchard MD [address] [place] [phone] 09/05/2025 10:00 AM EDT Appointment [facility] Interventional Radiology [address] [place] [address] 09/05/2025 11:00 AM EDT Appointment [facility] Inter[facility] Radiology [address] [place] [address] 09/17/2025 9:45 AM EDT Clinical Support [facility] [place] [address] [facility] [address] [place] [address] 09/17/2025 10:30 AM EDT Social Work [facility] [place] [address] [facility] [address] [place] [address] Lea Reilly, [place] [address] 09/17/2025 11:20 AM EDT Office Visit [facility] [place] [address] [facility] [address] [place] [address] Octavia Herrera, PA [address] [facility] [address] [place] [address] documented as of this encounter Procedures Procedure [...] MD on 08/22/2025 1:19 PM Shaniqua Mccurdy TECHNICAL SERVICES MANAGER IMG XR PROCEDURES Final Resu lt [...] documented as of this encounter Care Teams Telecommunications Project Manager Relationship Specialty Start Date End Date Alvarez Zimmer MD [address] [place] [address] PCP - General Family Medicine 12/07/24 Lea Fernando [address] [facility] [address] [place] [address] Sales Representative [employer] Endocrinology 08/29/24 Rachel Ray APRN [address] [place] [address] Nurse Practitioner Gastroenterology 09/24/24 Tamera Isabel LPN VALUE-BASED TRANSFORMATION PROGRAM Licensed Practical Nurse 05/29/25 Shaniqua Trevino LPN TCM Nurse 08/21/25 documented as of this encounter
--- OUTSIDE RECORDS SUMMARY | 2025-08-25 15:16 | XMS_ITS | Encounter Summary ---
Author Organization [facility] Address [address] [place] [address] Care Team Providers Care Director East Coast Sales Name Role Phone Wilma Howard Ambar RUSH Primary Care Provider [phone] Lea Fernando Unavailable [phone] Rachel Ray EXHAUST EMISSIONS AUTOMOTIVE TECHNICIAN Unavailable [phone] Taina Lyles APRN Primary Care Provider [phone] Monique Tapia LPN Unavailable Unavailable Alvarez Zimmer MD Primary Care Provider [phone] Shaniqua Trevino LPN Unavailable Unavailable Tamera Isabel LPN Unavailable UnavailAlina Bedolla RN Unavailable Unavailab Monique Che LPN Unavailable Unavailable Shaniqua Trevino LPN Unavailable Unavailable Encounter Details Date Type Department Care Team (Late st Contact Info) Description 09/14/2024 Orders Only External Location [address] [place] [address] Provider, External Social History Tobacco Use Types [...] in a custodial (including now)? Yes 08/29/2024 Education Answer Date [...] Description 08/26/2025 1:00 PM EDT Office Visit [facility] Endocrinology [address] [place] [address] Miranda Hobson, EXHAUST EMISSIONS AUTOMOTIVE TECHNICIAN [address] [place] [address] 08/29/2025 10:00 AM EDT Appointment [facility] [address] [place] [address] 08/29/2025 11:00 AM EDT Appointment [facility] Inter[facility] Radiology [address] [place] [address] 09/03/2025 8:40 AM EDT Office Visit [facility] [address] [facility], [address] [place] [address] Lillie Pritchard MD [address] [place] [address] [phone] 09/05/2025 10:00 AM EDT Appointment [facility] Radiology [address] [place] [address] 09/05/2025 11:00 AM EDT Appointment [facility] Inter[facility] Radiology [address] [place] [address] 09/17/2025 9:45 AM EDT Clinical Support [facility] [place] [address] [facility] [address] [place] [address] 09/17/2025 10:30 AM EDT Social Work [facility] [place] [address] [facility] [address] [place] [address] Lea Reilly, [place] [address] 09/17/2025 11:20 AM EDT Office Visit [facility] [place] [address] [facility] [address] [place] [address] Octavia Herrera, PA [address] [facility] [address] [place] [address] documented as of this encounter Procedures Procedure [...] as of this encounter Care Teams Director East Coast Sales Relationship Specialty Start Date End Date Wilma Howard APRN [address] [place] [address] [place] [address] PCP - General 04/03/21 09/30/24 Taina Lyles APRN [address] [place] [address] [place] [address] PCP - General 10/01/24 12/06/24 Alvarez Zimmer MD [address] [place] [phone] PCP - General Family Medicine 12/07/24 Lea Fernando [address] [address] Traveling Operator Endocrinology 08/29/24 Rachel Ray, EXHAUST EMISSIONS AUTOMOTIVE TECHNICIAN [address] [facility] [address] [place] [address] Nurse Practitioner Gastroenterology 09/24/24 Monique Tapia LPN VALUE-BASED [place] [address] TCM Nurse 11/28/24 12/28/24 Shaniqua Trevino LPN TCM Nurse 01/15/25 02/14/25 Tamera Isabel LPN VALUE-BASED TRANSFORMATION PROGRAM Licensed Practical Nurse 05/29/25 Alina Lovett, RN CH-VASCULAR & INTERVENTIONAL RADIOLOGY Registered Nurse 06/26/25 06/26/25 Monique Tapia LPN VALUE-BASED [place] [address] TCM Nurse 07/10/25 08/09/25 Shaniqua Trevino LPN TCM Nurse 08/21/25 documented as of this encounter
--- OUTSIDE RECORDS SUMMARY | 2025-08-25 15:16 | XMS_ITS | Encounter Summary ---
Author Organization [facility] Address [address] [place] [address] Care Team Providers Care Studio Data Analyst Name Role Phone Wilma Howard Ambar ROUSEN Primary Care Provider [phone] Lea Fernando Unavailable [phone] Rachel Ray TRAWL NET MAKER Unavailable [phone] Taina Lyles TRAWL NET MAKER Primary Care Provider [phone] Monique Tapia LPN Unavailable Unavailable Alvarez Zimmer MD Primary Care Provider [phone] Shaniqua Trevino LPN Unavailable Unavailable Tamera Isabel SUPERVISOR TOY ASSEMBLY Unavailable UnavailAlina Bedolla RN Unavailable Unavailab Monique Che LPN Unavailable Unavailable Shaniqua Trevino LPN Unavailable Unavailable Encounter Details Date Type Department Care Team (Late st Contact Info) Description 07/14/2024 Orders Only External Location [address] [place] [phone] Provider, External Social History Tobacco Use Types [...] Description 08/26/2025 1:00 PM EDT Office Visit [facility] Endocrinology [address] [place] [address] Miranda Hobson, TRAWL NET MAKER [address] [facility] [address] [place] [address] 08/29/2025 10:00 AM EDT Appointment [facility] Inter[facility] Radiology [address] [place] [address] 08/29/2025 11:00 AM EDT Appointment [facility] Inter[facility] Radiology [address] [place] [address] 09/03/2025 8:40 AM EDT Office Visit [facility] [address] [facility], [address] [place] [address] Lillie Pritchard MD [address] [place] [address] 09/05/2025 10:00 AM EDT Appointment [facility] Inter[facility] Radiology [address] [place] [address] 09/05/2025 11:00 AM EDT Appointment [facility] Inter[facility] Radiology [address] [place] [address] 09/17/2025 9:45 AM EDT Clinical Support [facility] [place] [address] [address] 09/17/2025 10:30 AM EDT Social Work [facility] [place] [address] [address] Lea Reilly, [place] [address] 09/17/2025 11:20 AM EDT Office Visit [facility] [address] [place] [address] Octavia Herrera PA [address] [place] [address] documented as of this encounter [...] documented as of this encounter Care Teams Studio Data Analyst Relationship Specialty Start Date End Date Wilma Howard APRN [address] [place] [address] [place] [address] PCP - General 04/03/21 09/30/24 Taina Lyles APRN [address] [place] [address] [place] [address] PCP - General 10/01/24 12/06/24 Alvarez Zimmer MD [facility] [place] [address] PCP - General Family Medicine 12/07/24 Lea Fernando [address] [place] [address] [facility] 08/29/24 Rachel Ray, TRAWL NET MAKER [address] [place] [address] Nurse Practitioner Gastroenterology 09/24/24 Monique Tapia LPN VALUE-BASED [place] [address] TCM Nurse 11/28/24 12/28/24 Shaniqua Trevino LPN TCM Nurse 01/15/25 02/14/25 Tamera Isabel LPN VALUE-BASED TRANSFORMATION PROGRAM Licensed Practical Nurse 05/29/25 Alina Lovett, RN CH-VASCULAR & INTERVENTIONAL RADIOLOGY Registered Nurse 06/26/25 06/26/25 Monique Tapia LPN VALUE-BASED [place] [address] TCM Nurse 07/10/25 08/09/25 Shaniqua Trevino LPN TCM Nurse 08/21/25 documented as of this encounter
--- OUTSIDE RECORDS SUMMARY | 2025-08-25 15:17 | XMS_ITS | Clinical Summary ---
Author Organization [employer] ([place], [place], [place], [place]) Address [address] [place] [address] Care Team Providers Care Wood Boat Builder Supervisor Name Role Phone Wilfredolayla Taina Burt APRN Primary Care Provider [phone] Allergies No known active allergies Medications * [...] Date Beau rded Speak language other than Malay at home Not on file 12/01/2023 Want [...] Completed 10/30/2019, Medical Devices Implanted Type Area Horses Or Mules Teamster Device Identifier Shelf Expiration Date Model / Serial / Lot Kt Lead Tined 1201 - [id number] Implanted:Qty: 1 on 07/01/2023 by Rory Villarreal MD at [facility] IMPLANTS N/A: Sacrum AXONICS 1201 / [id number] 5 / Neurostimulator Rechrgble R20 5101 - [id number] Implanted:Qty: 1 on 07/01/2023 by Rory Villarreal MD at [facility] IMPLANTS N/A: Sacrum AXONICS 5101 / [id number] 5 / Procedures Procedure Name Priority Date/Time [...] EDT 07/02/2021 8:24 AM EDT [facility] Historical Provider PATHOLOGY/CYTOLOGY ORDE RABLES Final Result [facility] [address] [address] [phone] from Last 3 Months or Most Recently Relevant to Health Maintenance Insurance [employer] MEDICARE PPO Care Teams Wood Boat Builder Supervisor Relationship Specialty Start Date End Date Taina Lyles APRN [address] [place] [address] PCP - General Nurse Practitioner 06/15/23
--- OUTSIDE RECORDS SUMMARY | 2025-08-25 15:17 | XMS_ITS | Encounter Summary ---
Author Organization [facility] Address [address] [place] [address] Care Team Providers Care Receiving Inspector Name Role Phone Wilma Howard Ambar ROUSEN Primary Care Provider [phone] Lea Fernando Unavailable [phone] Rachel Ray SUPERVISOR CEREAL Unavailable [phone] Taina Lyles SUPERVISOR CEREAL Primary Care Provider [phone] Monique Tapia LPN Unavailable Unavailable Alvarez Zimmer MD Primary Care Provider [phone] Shaniqua Trevino LPN Unavailable Unavailable Tamera Isabel MECHANIC AND WELDER Unavailable UnavailAlina Bedolla RN Unavailable Unavailab Monique Che LPN Unavailable Unavailable Shaniqua Trevino LPN Unavailable Unavailable Encounter Details Date Type Department Care Team (Late st Contact Info) Description 02/08/2024 Orders Only External Location [address] [place] [address] Provider, External Social History Tobacco Use Types [...] Description 08/26/2025 1:00 PM EDT Office Visit [facility] Endocrinology [address] [place] [address] Miranda Hobson, SUPERVISOR CEREAL [address] [facility] [address] [place] [address] 08/29/2025 10:00 AM EDT Appointment [facility] Interventional Radiology [address] [place] [address] 08/29/2025 11:00 AM EDT Appointment [facility] Interventional Radiology [address] [place] [address] 09/03/2025 8:40 AM EDT Office Visit [facility] [address] [facility], [address] [place] [address] Lillie Pritchard MD [address] [place] [address] 09/05/2025 10:00 AM EDT Appointment [facility] Interventional Radiology [address] [place] [address] 09/05/2025 11:00 AM EDT Appointment [facility] Interventional Radiology [address] [place] [address] 09/17/2025 9:45 AM EDT Clinical Support [facility] [place] [address] [address] 09/17/2025 10:30 AM EDT Social Work [facility] [place] [address] [address] Lea Reilly, [place] [address] 09/17/2025 11:20 AM EDT Office Visit [facility] [address] [place] [address] Octavia Herrera, MARIA GUADALUPE [address] [place] [address] documented as of this encounter [...] documented as of this encounter Care Teams Receiving Inspector Relationship Specialty Start Date End Date Wilma Howard APRN [address] [place] [address] [place] [address] PCP - General 04/03/21 09/30/24 Taina Lyles APRN [address] [place] [address] [place] [address] PCP - General 10/01/24 12/06/24 Alvarez Zimmer MD [facility] [place] [address] PCP - General Family Medicine 12/07/24 Lea Fernando [address] [place] [address] Spreader Operator Automatic Endocrinology 08/29/24 Rachel Ray, SUPERVISOR CEREAL [address] [place] [address] Nurse Practitioner Gastroenterology 09/24/24 Monique Tapia LPN VALUE-BASED [place] [address] TCM Nurse 11/28/24 12/28/24 Shaniqua Trevino LPN TCM Nurse 01/15/25 02/14/25 Tamera Isabel LPN VALUE-BASED TRANSFORMATION PROGRAM Licensed Practical Nurse 05/29/25 Alina Lovett, RN CH-VASCULAR & INTERVENTIONAL RADIOLOGY Registered Nurse 06/26/25 06/26/25 Monique Tapia LPN VALUE-BASED [place] [address] TCM Nurse 07/10/25 08/09/25 Shaniqua Trevino LPN TCM Nurse 08/21/25 documented as of this encounter
--- OUTSIDE RECORDS SUMMARY | 2025-08-25 15:17 | XMS_ITS | Encounter Summary ---
Author Organization [facility] Address [address] [place] [address] Care Team Providers Care Director Imaging Name Role Phone Wilma Howard Ambar ROUSEN Primary Care Provider [phone] Lea Fernando Unavailable [phone] Rachel Ray FOOD SERVICE KITCHEN SUPERVISOR Unavailable [phone] Taina Lyles FOOD SERVICE KITCHEN SUPERVISOR Primary Care Provider [phone] Monique Tapia LPN Unavailable Unavailable Alvarez Zimmer MD Primary Care Provider Shaniqua Trevino LPN Unavailable Unavailable Tamera Isabel PAPERBOARD BOXES ESTIMATOR Unavailable UnavailAlina Bedolla RN Unavailable Unavailab Monique Che LPN Unavailable Unavailable Shaniqua Trevino LPN Unavailable Unavailable Encounter Details Date Type Department Care Team (Late st Contact Info) Description 02/26/2024 Orders Only External Location [address] [place] [address] Provider, External Social History Tobacco Use Types [...] Description 08/26/2025 1:00 PM EDT Office Visit [facility] Endocrinology [address] [place] [address] Miranda Hobson, FOOD SERVICE KITCHEN SUPERVISOR [address] [facility] [address] [place] [address] 08/29/2025 10:00 AM EDT Appointment [facility] Interventional Radiology [address] [place] [address] 08/29/2025 11:00 AM EDT Appointment [facility] Interventional Radiology [address] [place] [address] 09/03/2025 8:40 AM EDT Office Visit [facility] [address] [facility], [address] [place] [address] Lillie Pritchard MD [address] [place] [address] 09/05/2025 10:00 AM EDT Appointment [facility] Interventional Radiology [address] [place] [address] 09/05/2025 11:00 AM EDT Appointment [facility] Inter[facility] Radiology [address] [place] [address] 09/17/2025 9:45 AM EDT Clinical Support [facility] [place] [address] [address] 09/17/2025 10:30 [address] [facility] [place] [address] [address] Lea Reilly, [place] [address] 09/17/2025 11:20 AM EDT Office Visit [facility] [address] [place] [address] Octavia Herrera, MARIA GUADALUPE [address] [place] [address] documented as of this encounter [...] as of this encounter Care Teams Director Imaging Relationship Specialty Start Date End Date Wilma Howard APRN [address] [place] [address] [place] [address] PCP - General 04/03/21 09/30/24 Taina Lyles APRN [address] [place] [address] [place] [address] PCP - General 10/01/24 12/06/24 Alvarez Zimmer MD [facility] [place] [address] PCP - General Family Medicine 12/07/24 Lea Fernando [address] [place] [address] High Lift Operator Endocrinology 08/29/24 Rachel Ray, FOOD SERVICE KITCHEN SUPERVISOR [address] [place] [address] Nurse Practitioner Gastroenterology 09/24/24 Monique Tapia LPN VALUE-BASED [place] [address] TCM Nurse 11/28/24 12/28/24 Shaniqua Trevino LPN TCM Nurse 01/15/25 02/14/25 Tamera Isabel LPN VALUE-BASED TRANSFORMATION PROGRAM Licensed Practical Nurse 05/29/25 Alina Lovett, RN CH-VASCULAR & INTERVENTIONAL RADIOLOGY Registered Nurse 06/26/25 06/26/25 Monique Tapia LPN VALUE-BASED [place] [address] TCM Nurse 07/10/25 08/09/25 Shaniqua Trevino LPN TCM Nurse 08/21/25 documented as of this encounter
--- OUTSIDE RECORDS SUMMARY | 2025-08-25 15:17 | XMS_ITS | Encounter Summary ---
Author Organization [facility] Address [address] [place] [address] Care Team Providers Care Building Appraiser Name Role Phone Lea Fernando Unavailable [phone] Rachel Ray COUNTERSINKER BALANCE SCREW HOLE Unavailable [phone] Alvarez Zimmer MD Primary Care Provider [phone] Tamera Isabel POLICE LIAISON OFFICER Unavailable UnavailAlina Bedolla RN Unavailable Unavailab Monique Che POLICE LIAISON OFFICER Unavailable Unavailable Shaniqua Trevino POLICE LIAISON OFFICER Unavailable Unavailable Reason for Visit * Reason Onset Date Comments Med Refill 04/23/2025 Encounter Details Date Type Department Care Team (Late st Contact Info) Description 04/23/2025 Refill [facility] [address] [place] [address] Alvarez Zimmer MD [address] [place] [address] Altered mental status, unspecified altered [...] week 01/10/2025 How often do you attend [facility] or [facility]? Patient unable to [...] Recorded Patient Health Questionnaire-2 Score 2 04/10/2025 [facility] - [...] drink first t kennedy in the morning (EYE-EXPORT DOCUMENTS CLERK) to steady your nerves or to get rid of a hangover? 0 10/22/2024 CAGE Questionnaire Score 0 024 Utilities Answer Date Recorded In the past 12 months has th e [employer], gas, oil, or water company threatened to [...] of zinc sulfate 220 mg sent to [facility] 03/01/2025. Refills remain available at the pharmacy. 90 day supply plus 1 refill of ciprofloxacin 500 mg sent to [facility] 03/01/2025. 1 refill remains available at the pharmacy. 30 day supply plus 3 refills of lactulose 10 gm/15 ml sent to [facility] 02/14/2025. Refills remain available at the pharmacy. documented in this encounter Plan of Treatment Upcoming Encounters Date Type Department Care Team (Late st Contact Info) Description 08/26/2025 1:00 PM EDT Office Visit [facility] Endocrinology [address] [place] [address] Miranda Hobson, COUNTERSINKER BALANCE SCREW HOLE [address] [place] [address] 08/29/2025 10:00 AM EDT Appointment [facility] Inter[facility] Radiology [address] [place] [address] 08/29/2025 11:00 AM EDT Appointment [facility] Interventional Radiology [address] [place] [address] 09/03/2025 8:40 AM EDT Office Visit [facility] [address] [place] [address] Lillie Pritchard MD [address] [place] [address] 09/05/2025 10:00 AM EDT Appointment [facility] Interventional Radiology [address] [place] [address] 09/05/2025 11:00 AM EDT Appointment [facility] Inter[facility] Radiology [address] [place] [address] 09/17/2025 9:45 AM EDT Clinical Support [facility] [place] [address] [place] [address] 09/17/2025 10:30 AM EDT Social Work [facility] [place] [address] [place] [address] Lea Reilly, [place] [address] 09/17/2025 11:20 AM EDT Office Visit [facility] [place] [address] [place] [address] Octavia Herrera, PA [address] [place] [address] documented as of this encounter Visit Diagnoses [...] documented as of this encounter Care Teams Building Appraiser Relationship Specialty Start Date End Date Alvarez Zimmer MD [address] [place] [address] PCP - General Family Medicine 12/07/24 Lea Fernando [address] [facility] [address] [place] [address] Airplane Charter Clerk Endocrinology 08/29/24 Rachel Ray, COUNTERSINKER BALANCE SCREW HOLE [address] [facility] [address] [place] [address] Nurse Practitioner Gastroenterology 09/24/24 Tamera Isabel LPN VALUE-BASED TRANSFORMATION PROGRAM Licensed Practical Nurse 05/29/25 Alina Lovett, RN CH-VASCULAR & INTERVENTIONAL RADIOLOGY Registered Nurse 06/26/25 06/26/25 Monique Tapia LPN VALUE-BASED [place] [address] TCM Nurse 07/10/25 08/09/25 Shaniqua Trevino LPN TCM Nurse 08/21/25 documented as of this encounter
--- OUTSIDE RECORDS SUMMARY | 2025-08-25 15:17 | XMS_ITS | Encounter Summary ---
Author Organization [facility] Address [address] [place] [address] Care Team Providers Care Tool Engine Lathe Set Up Operator Name Role Phone Wilma Howard Ambar ROUSEN Primary Care Provider [phone] Lea Fernando Unavailable [phone] Rachel Ray MANAGER OF INTERNAL AUDIT Unavailable [phone] Taina Lyles MANAGER OF INTERNAL AUDIT Primary Care Provider [phone] Monique Tapia LPN Unavailable Unavailable Alvarez Zimmer MD Primary Care Provider [phone] Shaniqua Trevino LPN Unavailable Unavailable Tamera Isabel CHURN OPERATOR Unavailable UnavailAlina Bedolla RN Unavailable Unavailab Monique Che LPN Unavailable Unavailable Shaniqua Trevino LPN Unavailable Unavailable Encounter Details Date Type Department Care Team (Late st Contact Info) Description 02/08/2024 Orders Only External Location [address] [place] [address] Provider, External Social History Tobacco Use Types [...] Description 08/26/2025 1:00 PM EDT Office Visit [facility] Endocrinology [address] [place] [address] Miranda Hobson, MANAGER OF INTERNAL AUDIT [address] [facility] [address] [place] [address] 08/29/2025 10:00 AM EDT Appointment [facility] Inter[facility] Radiology [address] [place] [address] 08/29/2025 11:00 AM EDT Appointment [facility] Inter[facility]iology [address] [place] [address] 09/03/2025 8:40 AM EDT Office Visit [facility] [address] [facility], [address] [place] [address] Lillie Pritchard MD [address] [place] [address] 09/05/2025 10:00 AM EDT Appointment [facility] [address] [place] [address] 09/05/2025 11:00 AM EDT Appointment [facility] [address] [place] [address] 09/17/2025 9:45 AM EDT Clinical Support [facility] [place] [address] [address] 09/17/2025 10:30 AM EDT Social Work [facility] [place] [address] [address] Lea Reilly, MACHINE [place] [address] 09/17/2025 11:20 AM EDT Office Visit [facility] [address] [place] [address] Octavia Herrera PA [address] [place] [address] documented as of this encounter [...] documented as of this encounter Care Teams Tool Engine Lathe Set Up Operator Relationship Specialty Start Date End Date Wilma Howard APRN [address] [place] [address] [place] [address] PCP - General 04/03/21 09/30/24 Taina Lyles APRN [address] [place] [address] [place] [address] PCP - General 10/01/24 12/06/24 Alvarez Zimmer MD [facility] [place] [address] PCP - General Family Medicine 12/07/24 Lea Fernando [address] [place] [address] Search Planner Endocrinology 08/29/24 Rachel Ray, MANAGER OF INTERNAL AUDIT [address] [place] [address] Nurse Practitioner Gastroenterology 09/24/24 Monique Tapia LPN VALUE-[place] [address] TCM Nurse 11/28/24 12/28/24 Shaniqua Trevino LPN TCM Nurse 01/15/25 02/14/25 Tamera Isabel LPN VALUE-BASED TRANSFORMATION PROGRAM Licensed Practical Nurse 05/29/25 Alina Lovett, RN CH-VASCULAR & INTERVENTIONAL RADIOLOGY Registered Nurse 06/26/25 06/26/25 Monique Tapia LPN VALUE-[place] [address] TCM Nurse 07/10/25 08/09/25 Shaniqua Trevino LPN TCM Nurse 08/21/25 documented as of this encounter
--- OUTSIDE RECORDS SUMMARY | 2025-08-25 15:17 | XMS_ITS | Encounter Summary ---
Author Organization [facility] Address [address] [place] [address] Care Team Providers Care Restaurant Hourly Manager Name Role Phone Lea Fernando Unavailable [phone] Rachel Ray RANGE ECOLOGIST Unavailable [phone] Alvarez Zimmer MD Primary Care Provider [phone] Tamera Isabel ICE CREAM DIPPER Unavailable UnavailAlina Bedolla RN Unavailable Unavailab Monique Che ICE CREAM DIPPER Unavailable Unavailable Shaniqua Trevino ICE CREAM DIPPER Unavailable Unavailable Reason for Visit * Reason Onset Date Comments Med Refill 04/19/2025 Encounter Details Date Type Department Care Team (Late st Contact Info) Description 04/19/2025 Refill [facility] Medicine [address] [place] [address] Alvarez Zimmer MD [address] [place] [address] Social History Tobacco Use Types [...] attend [facility] or restorationist services? Patient unable to [...] Recorded Patient Health Questionnaire-2 Score 2 04/10/2025 [facility] - [...] first t kennedy in the morning (EYE-PUBLIC SAFETY DISPATCHER) to steady your nerves or to get rid of a hangover? 0 10/22/2024 CAGE Questionnaire Score 0 024 Utilities Answer Date Recorded In the past 12 months has th e [employer], gas, oil, or water company threatened [...] Description 08/26/2025 1:00 PM EDT Office Visit [facility] Endocrinology [address] [place] [address] Miranda Hobson, RANGE ECOLOGIST [address] [place] [address] 08/29/2025 10:00 AM EDT Appointment [facility] Inter[facility] [address] [place] [address] 08/29/2025 11:00 AM EDT Appointment [facility] Inter[facility] Radiology [address] [place] [address] 09/03/2025 8:40 AM EDT Office Visit [facility] [address] [facility], [address] [place] [address] Lillie Pritchard MD [address] [place] [address] 09/05/2025 10:00 AM EDT Appointment [facility] Inter[facility] Radiology [address] [place] [address] 09/05/2025 11:00 AM EDT Appointment [facility] Inter[facility] Radiology [address] [place] [address] 09/17/2025 9:45 AM EDT Clinical Support [facility] [place] [address] [place] [address] 09/17/2025 10:30 AM EDT Social Work [facility] [place] [address] [place] [address] Lea Reilly, [place] [address] 09/17/2025 11:20 AM EDT Office Visit [facility] [place] [address] [place] [address] Octavia Herrera, PA [address] [place] [address] documented as of this encounter Visit Diagnoses [...] as of this encounter Care Teams Restaurant Hourly Manager Relationship Specialty Start Date End Date Alvarez Zimmer MD [address] [place] [address] PCP - General Family Medicine 12/07/24 Lea Fernando [address] [facility] [address] [place] [address] Communications Operator Endocrinology 08/29/24 Rachel Ray APRN [address] [place] [address] Nurse Practitioner Gastroenterology 09/24/24 Tamera Isabel LPN VALUE-BASED TRANSFORMATION PROGRAM Licensed Practical Nurse 05/29/25 Alina Lovett, RN CH-VASCULAR & INTERVENTIONAL RADIOLOGY Registered Nurse 06/26/25 06/26/25 Monique Tapia LPN VALUE-[place] [address] TCM Nurse 07/10/25 08/09/25 Shaniqua Trevino LPN TCM Nurse 08/21/25 documented as of this encounter
--- OUTSIDE RECORDS SUMMARY | 2025-08-25 15:17 | XMS_ITS | Encounter Summary ---
Author Organization [employer] ([place], [place], [place], [place]) Address [address] [place] [address] Care Team Providers Care Cable Ferry Operator Name Role Phone Taina Lyles NAIL ASSEMBLY MACHINE OPERATOR Primary Care Provider [phone] Encounter Details Date Type Department Care Team (Late st Contact Info) Description 07/08/2021 Transcribed Document [facility] Family [facility] [place] [address] ProviderWilliam MD [address] [place], [place] [address] Social History Tobacco Use Types Packs/Day Years [...] 07/08/2021 9:31 EDT Electronically signed by Luigi [facility] [address]version [address] Sql Developer Cerner at 03/07/2023 9:46 AM CDT documented in this encounter Plan of Treatment Not on file documented as of this encounter Visit Diagnoses Not on filedocumented in this encounter Care Teams Cable Ferry Operator Relationship Specialty Start Date End Date Taina Lyles, NAIL ASSEMBLY MACHINE OPERATOR [address] [place] [address] PCP - General Nurse Practitioner 06/15/23 documented as of this encounter
--- OUTSIDE RECORDS SUMMARY | 2025-08-25 15:17 | XMS_ITS | Encounter Summary ---
Author Organization [employer] ([place], [place], [place], [place]) Address [address] [place] [address] Care Team Providers Care Roller Coaster Engineer Name Role Phone Taina Lyles APRN Primary Care Provider [phone] Reason for Visit * Reason Comments New Med Request Encounter Details Date Type Department Care Team (Late st Contact Info) Description 12/10/2024 [facility] Primary Care - [address] [place] [address] Anali Benavidez, PRESCHOOL TEACHER'S ASSISTANT [address] [address] Social History Tobacco Use Types [...] Date Beau rded Speak language other than Jordanian at home Not on file 12/01/2023 Want [...] on filedocumented in this encounter Care Teams Roller Coaster Engineer Relationship Specialty Start Date End Date Taina Lyles, PRESCHOOL TEACHER'S ASSISTANT [address] [place] [address] PCP - General Nurse Practitioner 06/15/23 documented as of this encounter
--- OUTSIDE RECORDS SUMMARY | 2025-08-25 15:17 | XMS_ITS | Referral Summary ---
Author Organization [employer] ([place], [place], [place], [place]) Address [address] [place] [address] Care Team Providers Care Fuel Testing Technician Name Role Phone Wilfredolayla Taina Burt APRN Primary Care Provider [phone] Allergies No known active allergies Medications * [...] Date Beau rded Speak language other than Guatemalan at home Not on file 12/01/2023 Want [...] on file Medical Devices Implanted Type Area Consulting Technical Director Device Identifier Shelf Expiration Date Model / Serial / Lot Kt Lead Tined 1201 - [id number] Implanted:Qty: 1 on 07/01/2023 by Rory Villarreal MD at [facility] IMPLANTS N/A: Sacrum AXONICS 1201 / [id number] / Neurostimulator Rechrgble R20 5101 - [id number] Implanted:Qty: 1 on 07/01/2023 by Rory Villarreal MD at [facility] IMPLANTS N/A: Sacrum AXONICS 5101 / [id number] / Procedures Procedure Name Priority Date/Time [...] 4:24 AM EDT 07/02/2021 8:24 AM EDT [facility] Historical Provider PATHOLOGY/CYTOLOGY ORDE LOAN Final Result Performing Organization Address City/State/[facility] Co de Phone Number [facility] [address] [phone] from Last 3 Months or Most Recently Relevant to Health Maintenance Insurance [facility] MEDICARE PPO Care Teams Fuel Testing Technician Relationship Specialty Start Date End Date Taina Lyles, WAREHOUSE SPECIALIST [address] [place] [address] PCP - General Nurse Practitioner 06/15/23
--- OUTSIDE RECORDS SUMMARY | 2025-08-25 15:17 | XMS_ITS | Encounter Summary ---
Author Organization [facility] Address [address] [place] [address] Care Team Providers Care Dental Equipment Repairer Name Role Phone Wilma Howard Ambar ROUSEN Primary Care Provider [phone] Lea Fernando Unavailable [phone] Rachel Ray SALES OPERATIONS ANALYST Unavailable [phone] Taina Lyles SALES OPERATIONS ANALYST Primary Care Provider [phone] Mnoique Tapia LPN Unavailable Unavailable Alvarez Zimmer MD Primary Care Provider [phone] Shaniqua Trevino LPN Unavailable Unavailable Tamera Isabel ASSOCIATE FINANCIAL ADVISOR Unavailable UnavailAlina Bedolla RN Unavailable Unavailab Monique Che LPN Unavailable Unavailable Shaniqua Trevino LPN Unavailable Unavailable Encounter Details Date Type Department Care Team (Late st Contact Info) Description 05/23/2024 Orders Only External Location [address] [place] [address] Provider, External Social History Tobacco Use Types [...] PM EDT Office Visit [facility] Endocrinology [address] [place] [address] Miranda Hobson, SALES OPERATIONS ANALYST [address] [facility] [address] [place] [address] 08/29/2025 10:00 AM EDT Appointment [facility] Interventional Radiology [address] [place] [address] 08/29/2025 11:00 AM EDT Appointment [facility] Inter[facility] Radiology [address] [place] [address] 09/03/2025 8:40 AM EDT Office Visit [facility] [address] [facility], [address] [place] [address] Lillie Pritchard MD [address] [place] [address] 09/05/2025 10:00 AM EDT Appointment [facility] Inter[facility] Radiology [address] [place] [address] 09/05/2025 11:00 AM EDT Appointment [facility] Inter[facility] Radiology [address] [place] [address] 09/17/2025 9:45 AM EDT Clinical Support [facility] [place] [address] [address] 09/17/2025 10:30 AM EDT Social Work [facility] [place] [address] [address] Lea Reilly, [place] [address] 09/17/2025 11:20 AM EDT Office Visit [facility] [address] [place] [address] Octavia Herrera, MARIA GUADALUPE [address] [place] [address] documented as of this encounter [...] as of this encounter Care Teams Dental Equipment Repairer Relationship Specialty Start Date End Date Wilma Howard APRN [address] [place] [address] [place] [address] PCP - General 04/03/21 09/30/24 Taina Lyles APRN [address] [place] [address] [place] [address] PCP - General 10/01/24 12/06/24 Alvarez Zimmer MD [facility] [place] [address] PCP - General Family Medicine 12/07/24 Lea Fernando [address] [place] [address] Motor Coach Chauffeur Endocrinology 08/29/24 Rachel Ray, SALES OPERATIONS ANALYST [address] [place] [address] Nurse Practitioner Gastroenterology 09/24/24 Monique Tapia LPN VALUE-BASED [place] [address] TCM Nurse 11/28/24 12/28/24 Shaniqua Trevino LPN TCM Nurse 01/15/25 02/14/25 Tamera Isabel LPN VALUE-BASED TRANSFORMATION PROGRAM Licensed Practical Nurse 05/29/25 Alina Lovett, RN CH-VASCULAR & INTERVENTIONAL RADIOLOGY Registered Nurse 06/26/25 06/26/25 Monique Tapia LPN VALUE-BASED [place] [address] TCM Nurse 07/10/25 08/09/25 Shaniqua Trevino LPN TCM Nurse 08/21/25 documented as of this encounter
--- OUTSIDE RECORDS SUMMARY | 2025-08-25 15:17 | XMS_ITS | Encounter Summary ---
Author Organization [employer] ([place], [place], [place], [place]) Address [address] [place] [address] Care Team Providers Care Hot Saw Helper Name Role Phone Taina Lyles ADRI Primary Care Provider Encounter Details Date Type Department Care Team (Late st Contact Info) Description 07/07/2021 Transcribed Document [facility] [place] [address] [place] [address] ProviderWilliam MD [address] [place] [address] Social History Tobacco Use Types Packs/Day Years [...] 07/07/2021 16:13 EDT by CHARLES CUEVAS Mkt It Service Manager-Utilization Mgt Final Discharge Planning Discharge Arrangements : Patient Post-Acute Information Patient Name: MONIKA ZIMMER Gender: Female : [birth year] Age: 60 Years No Post-Acute Placement(s) Listed No Post-Acute Service(s) Listed No [place]pan Referral(s) Listed Discharge To Care Management : Home/Residential/Long-Term or Self Care -01 CHARLES CUEVAS Mkt It Service Manager-Utilization Mgt - 07/07/2021 16:13 EDT documented in this encounter Plan of Treatment Not on file documented as of this encounter Visit Diagnoses Not on filedocumented in this encounter Care Teams Hot Saw Helper Relationship Specialty Start Date End Date Taina Lyles, EDUCATION PROGRAM MANAGER [address] [place] [address] PCP - General Nurse Practitioner 06/15/23 documented as of this encounter
--- OUTSIDE RECORDS SUMMARY | 2025-08-25 15:17 | XMS_ITS | Clinical Summary ---
Author Organization [facility] Address [address] [place] [address] Care Team Providers Care Editing Computer Publisher Name Role Phone Taina Lyles APRN Primary Care Provider [phone] Allergies No known active allergies Medications * [...] mellitus type 2 in obese 04/22/2015 Overview (08/21/2025): 02/20/24 REGULATORY IMO CHANGES UPDATING PER 2024 REGULATORY 2024 LOAD Resolved Problems Problem Noted Date Diagnosed Date Resolved Date Acute hypotension 11/30/2022 12/02/2022 Partial small bowel obstruction 11/30/2022 12/02/2022 Dehydration 11/30/2022 12/02/2022 Encounter for screening for other viral diseases 11/02/2022 02/24/2023 Overview (11/02/2022): Added automatically from request for surgery [id number] Colon cancer screening 09/20/201910/26 Overview (09/20/2019): Added automatically from request for surgery [id number] Immunizations Immunization Administration Dates Next Due Flu [...] history exists Medical Devices Implanted Type Area Ice Skating Instructor Device Identifier Shelf Expiration Date Model / Serial / Lot Implant Implant Description:BILATERAL IOL Clip Gi Lig Hemostasis Resolution 2.8mm - [id number] Implanted:Qty: 1 on 09/27/2019 by Ross Johnson MD at [facility] Implant [employer] BERNARDINO 01/02/2022 [id number] / / [id number] Dev Clip Quickclippro Fix 2300mm - [id number] Implanted:Qty: 2 on 09/27/2019 by Ross Johnson MD at [facility] Implant [facility] 05/20/2022 HX20 2URA / / [id number] Dev Clip Quickclippro Fix 2300mm - [id number] Implanted:Qty: 2 on 09/27/2019 by Ross Johnson MD at [facility] Implant [facility] 04/20/2022 HX20 2URA / / [id number] Dev Clip Endo [id number] Contrl Rot 235cm - [id number] Implanted:Qty: 1 on 01/14/2023 by Lori Rm MD at [facility] Implant N/A: Perianal [employer] BERNARDINO 09/27/2025 [id number] / / [id number] Procedures Procedure Name Priority Date/Time Associated Diagnosis [...] - 200 mg/dL 06/16/2024 12:02 AM EDT [facility] Triglycerides 113 0 - 150 mg/dL 06/16/2024 12:02 AM EDT [facility] HDL Cholesterol 51 40 - 60 mg/dL 06/16/2024 12:02 AM EDT [facility] LDL Cholesterol 79 0 - 100 mg/dL 06/16/2024 12:02 AM EDT [facility] VLDL Cholesterol 20 5 - 40 mg/dL 06/16/2024 12:02 AM EDT [facility] LDL/HDL Ratio 1.50 06/16/2024 12:02 AM EDT [facility] Blood Venipuncture / Unknown 06/15/2024 2:00 PM EDT 06/15/2024 3:40 PM EDT Narrative [facility] - 06/16/2024 12:02 AM [...] MD LAB BLOOD ORDERABLES Final Resul t [facility]
[address] [place] [address], * Mammo Diagnostic Digital Tomosynthesis Bilateral With [...] compatible with focal fat necrosis. Taina Lyles EDI COORDINATOR IMG MAMMOGRAPHY ORDERABLES Fin al Result * COLONOSCOPY (01/14/2023 9:24 AM EST) Lori Rm MD INTERFACE NEEDS Final Re sult * UPPER GI ENDOSCOPY (12/13/2022 7:32 AM EST) Lori Rm MD INTERFACE NEEDS Final Re sult * Hepatitis C Antibody (10/28/2022 8:43 AM EST) Hepatitis C Ab Non-Reacti ve Non-Reacti ve 10/28/2022 7:36 PM EST [facility] Blood Venipuncture / Unknown 10/28/2022 8:43 AM EST 10/28/2022 9:21 AM EST [facility] - 10/28/2022 7:36 PM EST Results may be falsely decreased if patient taking Biotin. Mira Amin APRN LAB BLOOD ORDERABLES Final Result [facility]
[address] [place] [address], * (ABNORMAL) Hemoglobin A1c (11/24/2020 10:43 AM EST) Hemoglobin A1C 11.50(H) 4.80 - 5.60 % 11/24/2020 11:15 AM EST [facility] Blood Venipuncture / Unknown 11/24/2020 10:43 AM EST 11/24/2020 11:01 AM EST [facility] - 11/24/2020 11:15 AM EST Hemoglobin A1C Ranges: Increased Risk for Diabetes 5.7% to 6.4% Diabetes >= 6.5% Diabetic Goal < 7.0% Hang Coley MD LAB BLOOD ORDERABLES Final Res ult [facility]
[address] [place] [address], [place] [phone] from Last 3 Months or Most Recently Relevant to Health Maintenance [place] [address] [address] MEDICARE ADVANTAGE PPO Advance Directives * CPR (Attempt to Resuscitate) (Latest Code Status on File) Date Activated Date Inactivated Comments 11/30/2022 11:52 PM 12/02/2022 6:26 PM Question Answer Comments Code Status (Patient has no pulse and is not breathing): CPR (Attempt to Resuscitate) Medical Interventions (Patie nt has pulse or is breathing): Full Support Level Of Support Discussed With: Patient Care Teams Editing Computer Publisher Relationship Specialty Start Date End Date Taina Lyles APRN PCP - General Nurse Practitioner 12/30/22
--- OUTSIDE RECORDS SUMMARY | 2025-08-25 15:17 | XMS_ITS | Encounter Summary ---
Author Organization [facility] Address [address] [place] [address] Care Team Providers Care Personnel Manager Name Role Phone Wilma Howard Ambar ROUSEN Primary Care Provider [phone] Lea Fernando Unavailable [phone] Rachel Ray REAL ESTATE PARALEGAL Unavailable [phone] Taina Lyles REAL ESTATE PARALEGAL Primary Care Provider [phone] Monique Tapia LPN Unavailable Unavailable Alvarez Zimmer MD Primary Care Provider [phone] Shaniqua Trevino LPN Unavailable Unavailable Tamera Isabel SHIFT SUPERVISOR FILM PROCESSING Unavailable UnavailAlina Bedolla RN Unavailable Unavailab Monique Che LPN Unavailable Unavailable Shaniqua Trevino LPN Unavailable Unavailable Encounter Details Date Type Department Care Team (Late st Contact Info) Description 12/15/2023 Orders Only External Location [address] [place] [address] Provider, External Social History Tobacco Use Types [...] Description 08/26/2025 1:00 PM EDT Office Visit [facility] Endocrinology [address] [place] [address] Miranda Hobson, REAL ESTATE PARALEGAL [address] [facility] [address] [place] [address] 08/29/2025 10:00 AM EDT Appointment [facility] Interventional Radiology [address] [place] [address] 08/29/2025 11:00 AM EDT Appointment [facility] Inter[facility] Radiology [address] [place] [address] 09/03/2025 8:40 AM EDT Office Visit On license of [facility] [address] [facility], [address] [place] [address] Lillie Pritchard MD [address] [place] [address] 09/05/2025 10:00 AM EDT Appointment [facility] Inter[facility] Radiology [address] [place] [address] 09/05/2025 11:00 AM EDT Appointment [facility] [address] [place] [address] 09/17/2025 9:45 AM EDT Clinical Support [facility] [place] [address] [address] 09/17/2025 10:30 AM EDT Social Work [facility] [place] [address] [address] Lea Reilly, [place] [address] 09/17/2025 11:20 AM EDT Office Visit [facility] [address] [place] [address] Octavia Herrera, MARIA GUADALUPE [address] [place] [address] documented as of this encounter [...] as of this encounter Care Teams Personnel Manager Relationship Specialty Start Date End Date Wilma Howard APRN [address] [place] [address] [place] [address] PCP - General 04/03/21 09/30/24 Taina Lyles APRN [address] [place] [address] [place] [address] PCP - General 10/01/24 12/06/24 Alvarez Zimmer MD [facility] [place] [address] PCP - General Family Medicine 12/07/24 Lea Fernando [address] [place] [address] Retirement Plan Specialist Endocrinology 08/29/24 Rachel Ray, REAL ESTATE PARALEGAL [address] [place] [address] Nurse Practitioner Gastroenterology 09/24/24 Monique Tapia LPN VALUE-[place] [address] TCM Nurse 11/28/24 12/28/24 Shaniqua Trevino LPN TCM Nurse 01/15/25 02/14/25 Tamera Isabel LPN VALUE-BASED TRANSFORMATION PROGRAM Licensed Practical Nurse 05/29/25 Alina Lovett, RN CH-VASCULAR & INTERVENTIONAL RADIOLOGY Registered Nurse 06/26/25 06/26/25 Monique Tapia LPN VALUE-[place] [address] TCM Nurse 07/10/25 08/09/25 Shaniqua Trevino LPN TCM Nurse 08/21/25 documented as of this encounter
--- OUTSIDE RECORDS SUMMARY | 2025-08-25 15:17 | XMS_ITS | Encounter Summary ---
Author Organization [facility] Address [address] [place] [address] Care Team Providers Care Certified Anesthesiologist Assistant Name Role Phone Wilma Howard Ambar ROUSEN Primary Care Provider [phone] Lea Fernando Unavailable [phone] Rachel Ray KNITTING TEACHER Unavailable [phone] Taina Lyles KNITTING TEACHER Primary Care Provider [phone] Monique Tapia LPN Unavailable Unavailable Alvarez Zimmer MD Primary Care Provider [phone] Shaniqua Trevino LPN Unavailable Unavailable Tamera Isabel PHARMACY CONSULTANT Unavailable UnavailAlina Bedolla RN Unavailable Unavailab Monique Che LPN Unavailable Unavailable Shaniqua Trevino LPN Unavailable Unavailable Encounter Details Date Type Department Care Team (Late st Contact Info) Description 01/18/2024 Orders Only External Location [address] [place] [id number] Provider, External Social History Tobacco Use Types [...] Description 08/26/2025 1:00 PM EDT Office Visit [facility] Endocrinology [address] [place] [address] Miranda Hobson, KNITTING TEACHER [address] [facility] [address] [place] [address] 08/29/2025 10:00 AM EDT Appointment [facility] [address] [place] [address] 08/29/2025 11:00 AM EDT Appointment [facility] [address] [place] [address] 09/03/2025 8:40 AM EDT Office Visit [facility] [address] [facility], [address] [place] [address] Lillie Pritchard MD [address] [place] [address] 09/05/2025 10:00 AM EDT Appointment [facility] [address] [place] [address] 09/05/2025 11:00 AM EDT Appointment [facility] [address] [place] [address] 09/17/2025 9:45 AM EDT Clinical Support [facility] [place] [address] [address] 09/17/2025 10:30 AM EDT Social Work [facility] [place] [address] [address] Lea Reilly, [place] [address] 09/17/2025 11:20 AM EDT Office Visit [facility] [address] [place] [address] Octavia Herrera, MARIA GUADALUPE [address] [place] [address] documented as of this encounter [...] documented as of this encounter Care Teams Certified Anesthesiologist Assistant Relationship Specialty Start Date End Date Wilma Howard APRN [address] [place] [address] [place] [address] PCP - General 04/03/21 09/30/24 Taina Lyles APRN [address] [place] [address] [place] [address] PCP - General 10/01/24 12/06/24 Alvarez Zimmer MD [facility] [place] [address] PCP - General Family Medicine 12/07/24 Lea Fernando [address] [place] [address] Stem Shaper Endocrinology 08/29/24 Rachel Ray, KNITTING TEACHER [address] [place] [address] Nurse Practitioner Gastroenterology 09/24/24 Monique Tapia LPN VALUE-BASED [place] [address] TCM Nurse 11/28/24 12/28/24 Shaniqua Trevino LPN TCM Nurse 01/15/25 02/14/25 Tamera Isabel LPN VALUE-BASED TRANSFORMATION PROGRAM Licensed Practical Nurse 05/29/25 Alina Lovett, RN CH-VASCULAR & INTERVENTIONAL RADIOLOGY Registered Nurse 06/26/25 06/26/25 Monique Tapia LPN VALUE-BASED [place] [address] TCM Nurse 07/10/25 08/09/25 Shaniqua Trevino LPN TCM Nurse 08/21/25 documented as of this encounter
--- OUTSIDE RECORDS SUMMARY | 2025-08-25 15:17 | XMS_ITS | Encounter Summary ---
Author Organization [facility] Address [address] [place] [address] Care Team Providers Care Mirror Finishing Machine Operator Name Role Phone Wilma Howard Ambar ROUSEN Primary Care Provider [phone] Lea Fernando Unavailable [phone] Rachel Ray ELECTRONIC COMMERCE SPECIALIST Unavailable [phone] Taina Lyles ELECTRONIC COMMERCE SPECIALIST Primary Care Provider [phone] Monique Tapia LPN Unavailable Unavailable Alvarez Zimmer MD Primary Care Provider [phone] Shaniqua Trevino LPN Unavailable Unavailable Tamera Isabel REPORTER Unavailable UnavailAlina Bedolla RN Unavailable Unavailab Monique Che LPN Unavailable Unavailable Shaniqua Trevino LPN Unavailable Unavailable Encounter Details Date Type Department Care Team (Late st Contact Info) Description 04/23/2024 Orders Only External Location [address] [place] [id number] Provider, External Social History Tobacco Use Types [...] Description 08/26/2025 1:00 PM EDT Office Visit [facility] Endocrinology [address] [place] [address] Miranda Hobson, ELECTRONIC COMMERCE SPECIALIST [address] [facility] [address] [place] [address] 08/29/2025 10:00 AM EDT Appointment [facility] [address] [place] [address] 08/29/2025 11:00 AM EDT Appointment [facility]iology [address] [place] [address] 09/03/2025 8:40 AM EDT Office Visit [facility] [address] [facility], [address] [place] [address] Lillie Pritchard MD [address] [place] [address] 09/05/2025 10:00 AM EDT Appointment [facility]iology [address] [place] [address] 09/05/2025 11:00 AM EDT Appointment [facility] [address] [place] [address] 09/17/2025 9:45 AM EDT Clinical Support [facility] [place] [address] [address] 09/17/2025 10:30 AM EDT Social Work [facility] [place] [address] [address] Lea [place], [place] [address] 09/17/2025 11:20 AM EDT Office Visit [facility] [address] [place] [address] Octavia Herrera, MARIA GUADALUPE [address] [place] [address] documented as of this encounter [...] documented as of this encounter Care Teams Mirror Finishing Machine Operator Relationship Specialty Start Date End Date Wilma Howard APRN [address] [place] [address] [place] [address] PCP - General 04/03/21 09/30/24 Taina Lyles APRN [address] [place] [address] [place] [address] PCP - General 10/01/24 12/06/24 Alvarez Zimmer MD [facility] [place] [address] PCP - General Family Medicine 12/07/24 Lea Fernando [address] [place] [address] Regional Sales Manager Endocrinology 08/29/24 Rachel Ray, ELECTRONIC COMMERCE SPECIALIST [address] [place] [address] Nurse Practitioner Gastroenterology 09/24/24 Monique Tapia LPN VALUE-[place] [address] TCM Nurse 11/28/24 12/28/24 Shaniqua Trevino LPN TCM Nurse 01/15/25 02/14/25 Tamera Isabel LPN VALUE-BASED TRANSFORMATION PROGRAM Licensed Practical Nurse 05/29/25 Alina Lovett, RN CH-VASCULAR & INTERVENTIONAL RADIOLOGY Registered Nurse 06/26/25 06/26/25 Monique Tapia LPN VALUE-[place] [address] TCM Nurse 07/10/25 08/09/25 Shaniqua Trevino LPN TCM Nurse 08/21/25 documented as of this encounter
--- OUTSIDE RECORDS SUMMARY | 2025-08-25 15:17 | XMS_ITS | Encounter Summary ---
Author Organization [facility] Address [address] [place] [address] Care Team Providers Care Pharmaceutical Physician Name Role Phone Lea Fernando Unavailable [phone] Rachel Ray EMPLOYEE RELATION MANAGER Unavailable [phone] Alvarez Zimmer MD Primary Care Provider Tamera Isabel PROGRAM PROJECT ANALYST Unavailable UnavailAlina Bedolla RN Unavailable Unavailab Monique Che PROGRAM PROJECT ANALYST Unavailable Unavailable Shaniqua Trevino PROGRAM PROJECT ANALYST Unavailable Unavailable Reason for Visit * Reason Onset Date Comments Med Refill 03/16/2025 Encounter Details Date Type Department Care Team (Late st Contact Info) Description 03/16/2025 Refill [facility] [address] [place] [address] Alvarez Zimmer MD [address] [place] [address] Social History Tobacco Use Types [...] week 01/10/2025 How often do you attend [facility] or sikh services? Patient unable to answer [...] Recorded Patient Health Questionnaire-2 Score 0 03/06/2025 [facility] Occupat [...] drink first t kennedy in the morning (EYE-BARBER STYLIST) to steady your nerves or to get [...] Description 08/26/2025 1:00 PM EDT Office Visit [facility] Endocrinology [address] [place] [address] Miranda Hobson, EMPLOYEE RELATION MANAGER [address] [place] [address] 08/29/2025 10:00 AM EDT Appointment [facility]iology [address] [place] [address] 08/29/2025 11:00 AM EDT Appointment [facility]iology [address] [place] [address] 09/03/2025 8:40 AM EDT Office Visit [facility] [address], [address] [place] [address] Lillie Pritchard MD [address] [place] [id number] 09/05/2025 10:00 AM EDT Appointment [facility]iology [address] [place] [address] 09/05/2025 11:00 AM EDT Appointment [facility] [address] [place] [address] 09/17/2025 9:45 AM EDT Clinical Support [facility] [place] [address] [place] [address] 09/17/2025 10:30 AM EDT Social Work [facility] [place] [address] [place] [address] Lea [place] [id number] 09/17/2025 11:20 AM EDT Office Visit [facility] [place] [address] [place] [address] Octavia Herrera, MARIA GUADALUPE [address] [place] [address] documented as of this encounter [...] as of this encounter Care Teams Pharmaceutical Physician Relationship Specialty Start Date End Date Alvarez Zimmer MD [address] [place] [address] PCP - General Family Medicine 12/07/24 Lea Fernando [address] [place] [address] Dining Room Helper Endocrinology 08/29/24 Rachel Ray APRN [address] [place] [address] Nurse Practitioner Gastroenterology 09/24/24 Tamera Isabel LPN VALUE-BASED TRANSFORMATION PROGRAM Licensed Practical Nurse 05/29/25 Alina Lovett, RN CH-VASCULAR & INTERVENTIONAL RADIOLOGY Registered Nurse 06/26/25 06/26/25 Monique Tapia LPN VALUE-[place] [address] TCM Nurse 07/10/25 08/09/25 Shaniqua Trevino LPN TCM Nurse 08/21/25 documented as of this encounter
--- OUTSIDE RECORDS SUMMARY | 2025-08-25 15:17 | XMS_ITS | Encounter Summary ---
Author Organization [facility] Address [address] [place] [address] Care Team Providers Care Solder Cream Maker Name Role Phone Wilma Howard Ambar ROUSEN Primary Care Provider [phone] Lea Fernando Unavailable [phone] Rachel Ray TOLL REPAIRER CENTRAL OFFICE Unavailable [phone] Taina Lyles TOLL REPAIRER CENTRAL OFFICE Primary Care Provider Monique Tapia MARSHMALLOW MAKER Unavailable Unavailable Alvarez Zimmer MD Primary Care Provider [phone] Shaniqua Trevino LPN Unavailable Unavailable Tamera Isabel MARSHMALLOW MAKER Unavailable UnavailAlina Bedolla RN Unavailable Unavailab Monique Che LPN Unavailable Unavailable Shaniqua Trevino LPN Unavailable Unavailable Reason for Visit * Reason Onset Date Comments Med Refill Med Refill 08/11/2021 Encounter Details Date Type Department Care Team (Late st Contact Info) Description 07/28/2021 Refill [facility] [address] [place] [address] Deysi Antonio MD [address] [place] [address] Social History Tobacco Use Types [...] Dosage: Test Strips Preferred Pharmacy & Location: [facility] Days of medication remaining (if under 3 days please aida as urgent): Pt is out Best contact number and optimal time of day to reach caller: [phone] Additional comments/information from caller: Note: Please do not reply to this message. Follow-up communication and further actions as a result of this message need to be communicated with the patient directly, if the patient is not active onMyChart. If the patient is active on MyChart, they will receive notification of the communication/outcome via Rodatihart. documented in this encounter Plan of Treatment Upcoming Encounters Date Type Department Care Team (Late st Contact Info) Description 08/26/2025 1:00 PM EDT Office Visit [facility] Endocrinology [address] [place] [address] Miranda Hobson, TOLL REPAIRER CENTRAL OFFICE [address] [place] [address] 08/29/2025 10:00 AM EDT Appointment [facility]iology [address] [place] [address] 08/29/2025 11:00 AM EDT Appointment [facility] Inter[facility] Radiology [address] [place] [address] 09/03/2025 8:40 AM EDT Office Visit [facility] [address] [facility], [address] [place] [address] Lillie Prtichard MD [address] [place] [address] 09/05/2025 10:00 AM EDT Appointment [facility]iology [address] [place] [address] 09/05/2025 11:00 AM EDT Appointment [facility]iology [address] [place] [address] 09/17/2025 9:45 AM EDT Clinical Support [facility] [place] [address] [place] [address] 09/17/2025 10:30 AM EDT Social Work [facility] [place] [address] [place] [address] Lea Reilly, [place] [address] 09/17/2025 11:20 AM EDT Office Visit [facility] [place] [address] [place] [address] Octavia Herrera, PA [address] [place] [address] documented as of this encounter Visit Diagnoses Not on filedocumented in this encounter Additional Health Concerns Infection Onset Date Last Indicated Resolved Time COVID-19 Rule-Out 10/14/2024 10/14/2024 10/14/2024 6:33 AM EST Respiratory Rule-Out 01/08/2025 01/08/202501/08/2 025 7:29 PM EST Assessment Noted Time A fall risk assessment has been complete d for the patient 07/17/2021 1:24 PM EDT documented as of this encounter Care Teams Solder Cream Maker Relationship Specialty Start Date End Date Wilma Howard, TOLL REPAIRER CENTRAL OFFICE [address] [place], [place] [id number] PCP - General 04/03/21 09/30/24 Taina Lyles, TOLL REPAIRER CENTRAL OFFICE [address] [place] [address] [place] [address] PCP - General 10/01/24 12/06/24 Alvarez Zimmer MD [address] [place] [address] PCP - General Family Medicine 12/07/24 Lea Fernando [address] [place] [address] Natural Gas Engineer Endocrinology 08/29/24 Rachel Ray, TOLL REPAIRER CENTRAL OFFICE [address] [place] [address] Nurse Practitioner Gastroenterology 09/24/24 Monique Tapia LPN VALUE-BASED [place] [address] TCM Nurse 11/28/24 12/28/24 Shaniqua Trevino LPN TCM Nurse 01/15/25 02/14/25 Tamera Isabel LPN VALUE-BASED TRANSFORMATION PROGRAM Licensed Practical Nurse 05/29/25 Alina Lovett, RN CH-VASCULAR & INTERVENTIONAL RADIOLOGY Registered Nurse 06/26/25 06/26/25 Monique Tapia LPN VALUE-BASED [place] [address] TCM Nurse 07/10/25 08/09/25 Shaniqua Trevino LPN TCM Nurse 08/21/25 documented as of this encounter
--- OUTSIDE RECORDS SUMMARY | 2025-08-25 15:17 | XMS_ITS | Encounter Summary ---
Author Organization [facility] Address [address] [place] [address] Care Team Providers Care Veterinary Practice Manager Name Role Phone Wilma Howard Ambar ROUSEN Primary Care Provider [phone] Lea Fernando Unavailable [phone] Rachel Ray WEB DEVELOPER PROGRAMMER Unavailable [phone] Taina Lyles WEB DEVELOPER PROGRAMMER Primary Care Provider [phone] Monique Tapia LPN Unavailable Unavailable Alvarez Zimmer MD Primary Care Provider [phone] Shaniqua Trevino LPN Unavailable Unavailable Tamera Isabel FINISHING ROOM SUPERVISOR Unavailable UnavailAlina Bedolla RN Unavailable Unavailab Monique Che LPN Unavailable Unavailable Shaniqua Trevino LPN Unavailable Unavailable Encounter Details Date Type Department Care Team (Late st Contact Info) Description 07/17/2024 Orders Only External Location [address] [place] [address] Provider, External Social History Tobacco Use Types [...] Description 08/26/2025 1:00 PM EDT Office Visit [facility] Endocrinology [address] [place] [address] Miranda Hobson, WEB DEVELOPER PROGRAMMER [address] [facility] [address] [place] [address] 08/29/2025 10:00 AM EDT Appointment [facility] Inter[facility] Radiology [address] [place] [address] 08/29/2025 11:00 AM EDT Appointment [facility] Inter[facility] Radiology [address] [place] [address] 09/03/2025 8:40 AM EDT Office Visit [facility] [address] [facility], [address] [place] [address] Lillie Pritchard MD [address] [place] [address] 09/05/2025 10:00 AM EDT Appointment [facility] Radiology [address] [place] [address] 09/05/2025 11:00 AM EDT Appointment [facility] Inter[facility] Radiology [address] [place] [address] 09/17/2025 9:45 AM EDT Clinical Support [facility] [place] [address] [address] 09/17/2025 10:30 AM EDT Social Work [facility] [place] [address] [address] Lea Reilly, ELEV[place] [address] 09/17/2025 11:20 AM EDT Office Visit [facility] [address] [place] [address] Octavia Herrera PA [address] [place] [address] documented as of this encounter [...] documented as of this encounter Care Teams Veterinary Practice Manager Relationship Specialty Start Date End Date Wilma Howard APRN [address] [place] [address] [place] [address] PCP - General 04/03/21 09/30/24 Taina Lyles APRN [address] [place] [address] [place] [address] PCP - General 10/01/24 12/06/24 Alvarez Zimmer MD [facility] [place] [address] PCP - General Family Medicine 12/07/24 Lea Fernando [address] [place] [address] Precision Jig Grinder Endocrinology 08/29/24 Rachel Ray, WEB DEVELOPER PROGRAMMER [address] [place] [address] Nurse Practitioner Gastroenterology 09/24/24 Monique Tapia LPN VALUE-BASED [place] [address] TCM Nurse 11/28/24 12/28/24 Shaniqua Trevino LPN TCM Nurse 01/15/25 02/14/25 Tamera Isabel LPN VALUE-BASED TRANSFORMATION PROGRAM Licensed Practical Nurse 05/29/25 Alina Lovett, RN CH-VASCULAR & INTERVENTIONAL RADIOLOGY Registered Nurse 06/26/25 06/26/25 Monique Tapia LPN VALUE-BASED [place] [address] TCM Nurse 07/10/25 08/09/25 Shaniqua Trevino LPN TCM Nurse 08/21/25 documented as of this encounter
--- OUTSIDE RECORDS SUMMARY | 2025-08-25 15:17 | XMS_ITS | Encounter Summary ---
Author Organization [facility] Address [address] [place] [address] Care Team Providers Care Diesel Mechanic Farm Name Role Phone Wilma Howard Ambar ROUSEN Primary Care Provider [phone] Lea Fernando Unavailable [phone] Rachel Ray CONDEMNATION ENGINEER Unavailable [phone] Taina Lyles CONDEMNATION ENGINEER Primary Care Provider [phone] Monique Tapia LPN Unavailable Unavailable Alvarez Zimmer MD Primary Care Provider [phone] Shaniqua Trevino LPN Unavailable Unavailable Tamera Isabel LEGUILLON DEBEADER Unavailable UnavailAlina Bedolla RN Unavailable Unavailab Monique Che LPN Unavailable Unavailable Shaniqua Trevino LPN Unavailable Unavailable Encounter Details Date Type Department Care Team (Late st Contact Info) Description 02/02/2024 Orders Only External Location [address] [place] [address] Provider, External Social History Tobacco Use Types [...] Description 08/26/2025 1:00 PM EDT Office Visit [facility] Endocrinology [address] [place] [address] Miranda Hobson, CONDEMNATION ENGINEER [address] [facility] [address] [place] [address] 08/29/2025 10:00 AM EDT Appointment [facility] Inter[facility] Radiology [address] [place] [address] 08/29/2025 11:00 AM EDT Appointment [facility] Inter[facility] Radiology [address] [place] [address] 09/03/2025 8:40 AM EDT Office Visit [facility] [address] [facility], [address] [place] [address] Lillie Pritchard MD [address] [place] [address] 09/05/2025 10:00 AM EDT Appointment [facility] Inter[facility] Radiology [address] [place] [address] 09/05/2025 11:00 AM EDT Appointment [facility] Inter[facility] Radiology [address] [place] [address] 09/17/2025 9:45 AM EDT Clinical Support [facility] [place] [address] [address] 09/17/2025 10:30 AM EDT Social Work [facility] [place] [address] [address] Lea Reilly, EXPERIMENTAL [place] [address] 09/17/2025 11:20 AM EDT Office Visit [facility] [address] [place] [address] Octavia Herrera PA [address] [place] [address] documented as of this encounter [...] of this encounter Care Teams Diesel Mechanic Farm Relationship Specialty Start Date End Date Wilma Howard APRN [address] [place] [address] [place] [address] PCP - General 04/03/21 09/30/24 Taina Lyles APRN [address] [place] [address] [place] [address] PCP - General 10/01/24 12/06/24 Alvarez Zimmer MD [facility] [place] [address] PCP - General Family Medicine 12/07/24 Lea Fernando [address] [place] [address] Manager Battery Endocrinology 08/29/24 Rachel Ray, CONDEMNATION ENGINEER [address] [place] [address] Nurse Practitioner Gastroenterology 09/24/24 Monique Tapai LPN VALUE-BASED [place] [address] TCM Nurse 11/28/24 12/28/24 Shaniqua Trevino LPN TCM Nurse 01/15/25 02/14/25 Tamera Isabel LPN VALUE-BASED TRANSFORMATION PROGRAM Licensed Practical Nurse 05/29/25 Alina Lovett, RN CH-VASCULAR & INTERVENTIONAL RADIOLOGY Registered Nurse 06/26/25 06/26/25 Monique Tapia LPN VALUE-BASED [place] [address] TCM Nurse 07/10/25 08/09/25 Shaniqua Trevino LPN TCM Nurse 08/21/25 documented as of this encounter
--- OUTSIDE RECORDS SUMMARY | 2025-08-25 15:17 | XMS_ITS | Encounter Summary ---
Author Organization [facility] Address [address] [place] [address] Care Team Providers Care Cryptographic Clerk Name Role Phone Wilma Howard Ambar ROUSEN Primary Care Provider [phone] Lea Fernando Unavailable [phone] Rachel Ray SAP TECHNICAL ARCHITECT Unavailable [phone] Taina Lyles SAP TECHNICAL ARCHITECT Primary Care Provider [phone] Monique Tapia LPN Unavailable Unavailable Alvarez Zimmer MD Primary Care Provider [phone] Shaniqua Trevino LPN Unavailable Unavailable Tamera Isabel JAVA PROGRAMMING PROFESSOR Unavailable UnavailAlina Bedolla RN Unavailable Unavailab Monique Che LPN Unavailable Unavailable Shaniqua Trevino LPN Unavailable Unavailable Encounter Details Date Type Department Care Team (Late st Contact Info) Description 02/02/2024 Orders Only External Location [address] [place] [id number] Provider, External Social History Tobacco Use Types [...] EDT Office Visit [facility] Endocrinology [address] [place] [phone] Miranda Hobson, SAP TECHNICAL ARCHITECT [address] [facility] [address] [place] [address] 08/29/2025 10:00 AM EDT Appointment [facility] [address] [place] [address] 08/29/2025 11:00 AM EDT Appointment [facility] [address] [place] [address] 09/03/2025 8:40 AM EDT Office Visit [facility] [address] [facility], [address] [place] [address] Lillie Pritchard MD [address] [place] [address] 09/05/2025 10:00 AM EDT Appointment [facility] [address] [place] [address] 09/05/2025 11:00 AM EDT Appointment [facility] [address] [place] [address] 09/17/2025 9:45 AM EDT Clinical Support [facility] [address] [address] 09/17/2025 10:30 AM EDT Social Work [facility] [address] [address] Lea Reilly, [place] [address] 09/17/2025 11:20 AM EDT Office Visit [facility] [address] [place] [address] Octavia Herrera, MARIA GUADALUPE [address] [place] [address] documented as of this encounter [...] documented as of this encounter Care Teams Cryptographic Clerk Relationship Specialty Start Date End Date Wilma Howard APRN [address] [place] [address] [place] [address] PCP - General 04/03/21 09/30/24 Taina Lyles APRN [address] [place] [address] [place] [address] PCP - General 10/01/24 12/06/24 Alvarez Zimmer MD [facility] [place] [address] PCP - General Family Medicine 12/07/24 Lea Fernando [address] [place] [address] Laborer Endocrinology 08/29/24 Rachel Ray, SAP TECHNICAL ARCHITECT [address] [place] [address] Nurse Practitioner Gastroenterology 09/24/24 Monique Tapia LPN VALUE-BASED TRANSFORMATION [place] [address] TCM Nurse 11/28/24 12/28/24 Shaniqua Trevino LPN TCM Nurse 01/15/25 02/14/25 Tamera Isabel LPN VALUE-BASED TRANSFORMATION PROGRAM Licensed Practical Nurse 05/29/25 Alina Lovett, RN [facility] Registered Nurse 06/26/25 06/26/25 Monique Tapia LPN VALUE-BASED TRANSFORMATION [place] [address] TCM Nurse 07/10/25 08/09/25 Shaniqua Trevino LPN TCM Nurse 08/21/25 documented as of this encounter
--- OUTSIDE RECORDS SUMMARY | 2025-08-25 15:17 | XMS_ITS | Encounter Summary ---
Author Organization [employer] ([place], [place], [place], [place]) Address [address] [place] [address] Care Team Providers Care Resume Specialist Name Role Phone Taina Lyles APRN Primary Care Provider [phone] Encounter Details Date Type Department Care Team (Late st Contact Info) Description 09/15/2021 Transcribed Document [facility] [place] Medicine [address] [place] [address] ProviderWilliam MD [address] [place] [address] Social History Tobacco Use Types Packs/Day Years [...] Reyes MD - 09/15/2021 3:29 PM CDT [address] [address] OPERATIVE REPORT PATIENT IDENTIFICATION: MONIKA ZIMMER (Female - 1960) ACCOUNT / UNIT NUMBER: [id number] / [id number] PRIMARY CARE PHYSICIAN: ERYN PARKINSON APRN PATIENT LOCATION: [facility] [place] ADMIT DATE / TIME: 09/15/21 0646 DISCHARGE [...] follow her diet, avoiding caffeine or nicotine. /[id number] Dictated By: VOLODYMYR VILLARREAL E-Signed By: ALDO [id number] [\R\ rep ct labl] [\R\ rep ct ivnm] Medical Disclaimer: This report is to be considered preliminary until reviewed and signed. documented in this encounter Plan of Treatment Not on file documented as of this encounter Visit Diagnoses Not on filedocumented in this encounter Care Teams Resume Specialist Relationship Specialty Start Date End Date Taina Lyles, ADRI [address] [place] [address] PCP - General Nurse Practitioner 06/15/23 documented as of this encounter
--- OUTSIDE RECORDS SUMMARY | 2025-08-25 15:18 | XMS_ITS | Encounter Summary ---
Author Organization [facility] Address [address] [place] [address] Care Team Providers Care Senior Asp Net Developer Name Role Phone Lea Fernando Unavailable [phone] Rachel Ray CERTIFIED WELLNESS PROGRAM MANAGER Unavailable [phone] Alvarez Zimmer MD Primary Care Provider [phone] Tamera Isabel AIRLINE LOUNGE RECEPTIONIST Unavailable UnavailShaniqua Lomeli AIRLINE LOUNGE RECEPTIONIST Unavailable Unavailable Encounter Details Date Type Department Care Team (Latest Contact Info) Description 08/22/2025 Travel Social History Tobacco Use Types Packs/Day [...] occasion? Never 06/25/2025 [facility] - [...] living in a correction (including now)? No 08/19/2025 [facility] Utilities Answer Date Recorded In the past [...] first t kennedy in the morning ([facility]-HEALTH CARE FACILITY ADMINISTRATOR) to steady your nerves or to [...] Visit [facility] Endocrinology [address] [place] [address] Miranda Hobson, CERTIFIED WELLNESS PROGRAM MANAGER [address] [facility] [address] [place] [address] 08/29/2025 10:00 AM EDT Appointment [facility] [address] [place] [address] 08/29/2025 11:00 AM EDT Appointment [facility] [address] [place] [address] 09/03/2025 8:40 AM EDT Office Visit [facility] [address] [place] [address] Lillie Pritchard MD [address] [place], [place] [id number] 09/05/2025 10:00 AM EDT Appointment [facility] [address] [place] [address] 09/05/2025 11:00 AM EDT Appointment [facility] [address] [place] [address] 09/17/2025 9:45 AM EDT Clinical Support [facility] [address] [place] [address] 09/17/2025 10:30 AM EDT Social Work [facility] [address] [place] [address] Lea Reilly, [place], [place] [id number] 09/17/2025 11:20 AM EDT Office Visit [facility] [address] [facility] [address] [place] [address] Octavia Herrera, PA [address] [facility] [address] [place] [address] documented as of this encounter Visit Diagnoses [...] as of this encounter Care Teams Senior Asp Net Developer Relationship Specialty Start Date End Date Alvarez Zimmer MD [address] [place] [address] PCP - General Family Medicine 12/07/24 Lea Fernando [address] [facility] [address] [place] [phone] Marketing Regional Consultant Endocrinology 08/29/24 Rachel Ray, CERTIFIED WELLNESS PROGRAM MANAGER [address] [address] Nurse Practitioner Gastroenterology 09/24/24 Tamera Isabel LPN VALUE-BASED TRANSFORMATION PROGRAM Licensed Practical Nurse 05/29/25 Shaniqua Trevino LPN TCM Nurse 08/21/25 documented as of this encounter
--- OUTSIDE RECORDS SUMMARY | 2025-08-25 15:18 | XMS_ITS | Clinical Summary ---
Author Organization [facility] Address [address] [place] [address] Care Team Providers Care Storage Receipt Poster Name Role Phone Lea Fernando Unavailable [phone] Rachel Ray CLAMSHELL ENGINEER Unavailable [phone] Alvarez Ordaz MD Primary Care Provider [phone] Tamera Isabel SUPERVISOR TUBING Unavailable UnavailShaniqua Lomeli SUPERVISOR TUBING Unavailable Unavailable Allergies Active Allergy Reactions Criticality Noted Date Comments Penicillins Other - please docum ent in the comment field Low 08/18/2025 Doesn't remember Medications Multiple Vitamins-Spalding als (COMPLETE WOMENS PO) Take 1 tablet by mouth in the morning. Active calcium carbonate EX (Tums E-X) 750 MG chewable tablet Chew 1 tablet (750 mg) 1 (one) time each day. 12/05/19 25 Active ciprofloxacin (Cipro) 500 MG tabletIndicati [...] daily. 90 tablet 2 04/01/20 25 Active lactulose (Chronulac) 10 GM/15ML solution Take 30 mL by mouth 3 times a day. 2700 mL 11 05/07/20 25 Active rifAXIMin (Xifaxan) 550 MG tabletIndicati ons:Liver cirrhosis secondary to NAIDU (nonalcoholic steatohepatiti s) Take 1 tablet by mouth 2 times a day. 60 tablet 11 06/03/20 25 026 Active calcitriol (Rocaltrol) 0.25 MCG capsuleIndicat ions:Chronic kidney disease, stage 3b (CMS/HCC) Take 1 capsule by mouth daily. 30 capsule 06/10/20 25 026 Active ergocalciferol (Vitamin D-2) 1.25 MG (72208 UT) capsuleIndicat ions:Vitamin D deficiency Take 1 capsule by mouth 1 time per week. 4 capsule 06/27/20 25 026 Active cetirizine (ZyrTEC) 10 MG tabletIndicati ons:ETD (Eustachian tube dysfunction), bilateral Take 1 tablet by mouth daily. 30 tablet 07/09/20 25 Active insulin glargine-yfgn 100 UNIT/ML injection vial Inject 24 Units under the skin daily. 07/09/20 25 Active Additional Information Patient taking differently:24 Units SubcutaneousEvery morning, Reported on 08/18/2025 midodrine (Proamatine) 5 MG tablet Take 3 tablets by mouth 3 times a day. 07/09/20 25 Active carboxymethylc ellulose PF (Refresh Plus) 0.5 % ophthalmic solution Administer 1 drop into both eyes as needed for dry eyes. 07/09/20 25 Active senna (Senokot) 8.6 MG tablet Take 1 tablet by mouth nightly. 07/09/20 25 Active insulin lispro (Admelog) 100 UNIT/ML injection Inject 0-10 Units under the skin 3 times a day with meals. See After Visit Summary for instructions on how to take your insulin. 07/09/20 25 Active Additional Information Patient taking differently: 0-12 UnitsSubcutaneous 3 times daily with meals,Sliding scale 0 149 or less , 2 units 150-200, 4 units 201-250, 6 units 251-300, 8 units 301-350, 10 units 351-400, 401 and greater [address], Reported on 08/18/2025 prochlorperazi ne (Compazine) 5 MG tablet Take 1 tablet by mouth every 8 hours as needed for nausea or vomiting. 60 tablet 2 07/09/20 Active bumetanide (Bumex) 0.5 MG tablet Take 1 tablet by mouth 3 times a week. M, W, F Active zinc sulfate (Zincate) 220 (50 Zn) MG capsule Take 1 capsule by mouth in the morning and 1 capsule before bedtime. 60 capsule 2 03/01/20 025 Disconti nued(Ent ered in Error) [place]egalogue 0.6 MG/0.6ML solution auto-injectorI ndications:Typ e 2 diabetes mellitus with hyperglycemia, with long-term current use of insulin Inject 0.6 mg under the skin 1 time as needed (for extreme hypoglycemia) for up to 1 dose. 0.6 mL 2 04/17/20 25 025 Disconti nued(Ent ered in Error) Abaloparatide (Tymlos) 3120 MCG/1.56ML solution pen-injector Inject 80 mcg under the skin daily. 1.56 mL 2 04/22/20 25 025 Disconti nued(Ent ered in Error) capsaicin (Zostrix-HP) 0.075 % topical cream Apply 1 Application topically daily as needed (Leg and foot cramps). Disconti nued(Ent ered in Error) benzonatate (Tessalon) 100 MG capsule Take 1 capsule by mouth 3 times a day as needed for cough. Do not crush or chew. 07/09/20 25 025 Disconti nued(Ent ered in Error) bisacodyl (Dulcolax) 10 MG suppository Insert 1 suppository into the rectum daily as needed for constipation. 07/09/20 25 025 Disconti nued(Ent ered in Error) hydrOXYzine HCl (Atarax) 25 MG tablet Take 0.5 tablets by mouth at night as needed for itching. 07/09/20 25 025 Disconti nued(Ent ered in Error) polyethylene glycol (Miralax) 17 g packet Take 17 g by mouth 2 times a day. 07/09/20 025 Disconti nued(Ent ered in Error) melatonin tablet Take 1 tablet by mouth at night as needed for sleep. 07/09/20 025 Disconti nued(Ent ered in Error) insulin lispro (Admelog) 100 UNIT/ML injection Inject 0-3 Units under the skin 2 times a night. See After Visit Summary for instructions on how to take your insulin. 07/09/20 025 Disconti nued(Ent ered in Error) cholecalcifero l (Vitamin D3) 25 MCG (1000 UT) tablet Take 1 tablet by mouth daily. Disconti nued(Ent ered in Error) Active Problems Problem Noted Date Diagnosed Date Hyponatremia with excess extracellular fluid vol ume 08/19/2025 Assessment & Plan (08/22/2025 6:34 PM EDT): -08/19 Sodium of 125 with clinical signs of fluid overload. Likely chronic, placed 2L per day fluid restriction. -08/20 Sodium up to 132 from 125 yesterday with 2L fluid restriction. Assessment & Plan (08/19/2025 2:10 PM EDT): Sodium of 125 with clinical signs of fluid overload. Likely chronic, placed 2L per day fluid restriction. 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 [...] at this time has elected to pursue [facility] placement and would like to speak with palliative care to learn more about their services - SW working to find LTC facility placement - palliative consulted PLAN - Delirium protocols - Continue Up to Chair TID, q4 turns - Ongoing GOC discussions Assessment & Plan (07/03/2025 8:24 AM EDT): - Patient at this time has elected to pursue [facility] placement and would like to [...] at this time has elected to pursue [facility] placement and would like to [...] significant concern and would prefer JOHN or vermin exterminator care pending influence on ability to receive transplant - Patient endorsing some burning discomfort that begins in buttocks and radiates down lateral leg, does not feel as though she is getting moved much - Concerned with possible disorientation PLAN - Transplant service to evaluate today and determine if vermin exterminator care would be a barrier to future [...] Patient will NOT need neutropenic precautions at [facility] outside of the hospital. Assessment & Plan (07/01/2025 1:10 PM EDT): - WBC 3.15 (baseline 4.0) with 1.79 absolute neutrophils, neutropenia resolved today - RBC 2.81 (baseline 3.0), platelets 47 (baseline 55) - Stable up trending toward baseline overall - Patient has a history of SLE on chart review JORDAN positive though not on medication - Stopped seeing panel builder after being dismissed for missing too many [...] though not on medication - Stopped seeing panel builder after being dismissed for missing too many [...] hepatic disorde r 06/25/2025 Assessment & Plan (08/22/2025 6:34 PM EDT): - 08/19 Decreased bibasilar breath sounds with increased shortness of air. Chest X-Ray to determine need for repeat thoracentesis. -08/20 Chest xray revealed right sided pleural effusion and left trace pleural effusion. Thoracentesis scheduled for 08/22 with IR. Assessment & Plan (08/19/2025 2:10 PM EDT): Decreased bibasilar breath sounds with increased shortness of air. Chest X-Ray to determine need for repeat thoracentesis. Assessment & Plan (07/08/2025 1:55 PM EDT): [...] - Continue daily vit D 1000 U; 53755 U to be ordered on 06/30 if [...] - Continue daily vit D 1000 U; 98422 U to be ordered on 06/30 if [...] - Continue daily vit D 1000 U; 03976 U to be ordered on 06/30 if [...] - Continue daily vit D 1000 U; 26986 U to be ordered on 06/30 if [...] - Continue daily vit D 1000 U; 73871 U to be ordered on 06/30 if [...] daily, Vit D 1000 U daily and 63518 U weekly (Sundays) PLAN: - Admitted to [...] - Continue daily vit D 1000 U; 01118 U to be ordered on 06/30 if [...] at this time has elected to pursue [facility] placement and would like to [...] significant concern and would prefer JOHN or vermin exterminator care pending influence on ability to receive transplant - Patient endorsing some burning discomfort that begins in buttocks and radiates down lateral leg, does not feel as though she is getting moved much - Concerned with possible disorientation PLAN - Transplant service to evaluate today and determine if vermin exterminator care would be a barrier to future [...] recommended home health; patient and family requested chcf facility PLAN - Contacted transplant service to [...] recommended home health; patient and family requested chcf facility PLAN - Plan for placement in long-term care Assessment & Plan (06/29/2025 8:30 AM EDT): - Patient reports poor PO intake at home in s/o large-volume ascites - Family involved in and amenable to discussion of placement; concerned for declining ability to perform ADLs - PT/OT recommended home health; patient and family requested chcf facility PLAN - Plan for placement in [...] consulted; recs appreciated - Patient agreeable to chcf facility Assessment & Plan (06/26/2025 3:57 PM [...] bacterial peritonitis 03/01/20 25 Assessment & Plan (08/22/2025 6:34 PM EDT): -08/19 Recurrent abdominal fluid accumulation increases risk for SBP. Due to cross coverage with ceftriaxone, hold ciprofloxacin today and resume tomorrow. Continue home rifaximin, and lactulose today and restart ciprofloxacin tomorrow. -08/20 Restart ciprofloxacin 500mg today with rifaximin and lactulose to resume home SBP regimen. Assessment & Plan (08/19/2025 2:10 PM EDT): Recurrent abdominal fluid accumulation increases risk for SBP. Due to cross coverage with ceftriaxone, hold ciprofloxacin today and resume tomorrow. Continue home rifaximin, and lactulose today and restart ciprofloxacin tomorrow. Assessment & Plan (07/08/2025 1:55 PM EDT): [...] - Continue daily vit D 1000 U; 76409 U to be ordered on 06/30 if [...] - Continue daily vit D 1000 U; 97171 U to be ordered on 06/30 if [...] - Continue daily vit D 1000 U; 79724 U to be ordered on 06/30 if [...] - Continue daily vit D 1000 U; 43088 U to be ordered on 06/30 if [...] - Continue daily vit D 1000 U; 09116 U to be ordered on 06/30 if [...] daily, Vit D 1000 U daily and 15900 U weekly (Sundays) PLAN: - Admitted to [...] - Continue daily vit D 1000 U; 20467 U to be ordered on 06/30 if still admitted - Renally dose medications and avoid nephrotoxic agents Moderate protein-calorie malnutrition 01/22/2025 Type 2 diabetes mellitus, wi th long-term current use of insulin 01/11/2024 Assessment & Plan (08/22/2025 6:34 PM EDT): -08/19 Glucose remains in the mid 200s, she has been taking her home dose of glargine in the morning. Start glargine at night with 24 units tonight. Pending response to timing change, reassess insulin regimen. -08/20 Glucose remains in the high 200s this morning despite changing glargine 24 to nightly yesterday. Continue with current insulin regimen and reassess efficacy at follow up. Assessment & Plan (08/19/2025 2:10 PM EDT): Glucose remains in the mid 200s, she has been taking her home dose of glargine in the morning. Start glargine at night with 24 units tonight. Pending response to timing change, reassess insulin regimen. Assessment & Plan (07/08/2025 11:14 AM EDT): [...] liver with ascites 11/30/2022 Assessment & Plan (08/22/2025 6:34 PM EDT): -08/19 Abdominal distension with history of weekly therapeutic paracentesis. Abdominal ultrasound to determine need for therapeutic paracentesis reports moderate volume ascites. -08/20 Abdominal ultrasound revealed moderate ascites. Paracentesis scheduled for 08/22 with IR. Assessment & Plan (08/19/2025 2:10 PM EDT): Abdominal distension with history of weekly therapeutic paracentesis. Abdominal ultrasound to determine need for therapeutic paracentesis reports moderate volume ascites. Assessment & Plan (07/08/2025 1:55 PM EDT): [...] - Continue daily vit D 1000 U; 61281 U to be ordered on 06/30 if [...] - Continue daily vit D 1000 U; 73875 U to be ordered on 06/30 if [...] - Continue daily vit D 1000 U; 61776 U to be ordered on 06/30 if [...] - Continue daily vit D 1000 U; 56700 U to be ordered on 06/30 if [...] - Continue daily vit D 1000 U; 81707 U to be ordered on 06/30 if [...] daily, Vit D 1000 U daily and 35947 U weekly (Sundays) PLAN: - Admitted to [...] - Continue daily vit D 1000 U; 59218 U to be ordered on 06/30 if [...] treated with BiPAP 12/03/2019 Assessment & Plan (08/22/2025 6:34 PM EDT): - 08/19 Poor sleep and comfort issues with hospital bipap. Her family is bringing home bipap today. -08/20 Patient reports better sleep and comfort with use of home CPAP Assessment & Plan (08/19/2025 2:10 PM EDT): Poor sleep and comfort issues with hospital bipap. Her family is bringing home bipap today. Assessment & Plan (07/08/2025 8:55 AM EDT): [...] afternoon PLAN - Continue nightly BiPAP at 126 per RT recs; RT to adjust settings [...] Plan (06/30/2025 1:48 PM EDT): - 06/28 SUBSTATION MECHANIC diet recommendations; see below - Patient continues to eat full diet without difficulty PLAN - Continue to hold omeprazole Assessment & Plan (06/29/2025 12:33 PM EDT): - SUBSTATION MECHANIC attempted to see patient 8/7; was in procedure - 06/28 SUBSTATION MECHANIC diet recommendations: IDDSI Level 7 - Regular and IDDSI Level 0- Thin PLAN - Continue to hold omeprazole Assessment & Plan (06/29/2025 8:30 AM EDT): - SUBSTATION MECHANIC attempted to see patient 8/7; was in procedure PLAN - Awaiting SUBSTATION MECHANIC eval - Continue to hold omeprazole Assessment & Plan (06/27/2025 3:08 PM EDT): - Chronic; advised to hold home omeprazole at most recent nephrology appointment due to concern for CARLOTTA PLAN - Continue to hold omeprazole - Ordered SUBSTATION MECHANIC consult; appreciate recommendations Assessment & Plan (06/26/2025 3:57 PM EDT): - Chronic; advised to hold home omeprazole at most recent nephrology appointment due to concern for CARLOTTA PLAN - Continue to hold omeprazole - Ordered SUBSTATION MECHANIC consult; appreciate recommendations Assessment & Plan (06/26/2025 [...] - Continue daily vit D 1000 U; 63007 U to be ordered on 06/30 if [...] - Continue daily vit D 1000 U; 38383 U to be ordered on 06/30 if [...] - Continue daily vit D 1000 U; 90983 U to be ordered on 06/30 if [...] - Continue daily vit D 1000 U; 02860 U to be ordered on 06/30 if [...] - Continue daily vit D 1000 U; 84585 U to be ordered on 06/30 if [...] daily, Vit D 1000 U daily and 23688 U weekly (Sundays) PLAN: - Admitted to [...] - Continue daily vit D 1000 U; 63205 U to be ordered on 06/30 if [...] at this time has elected to pursue [facility] placement and would like to speak with palliative care to learn more about their services - SW working to find LTC facility placement - palliative consulted PLAN - Delirium protocols - Continue Up to Chair TID, q4 turns - Ongoing GOC discussions Assessment & Plan (07/05/2025 8:28 AM EDT): - Patient at this time has elected to pursue [facility] placement and would like to [...] at this time has elected to pursue [facility] placement and would like to [...] at this time has elected to pursue [facility] placement and would like to [...] Consider Palliative consult AM 07/03 - Ongoing [facility] discussions Assessment & Plan (07/01/2025 9:16 AM EDT): - PTOT recs home health - Patient and family have significant concern and would prefer JOHN or vermin exterminator care pending influence on ability to receive transplant - Patient endorsing some burning discomfort that begins in buttocks and radiates down lateral leg, does not feel as though she is getting moved much - Concerned with possible disorientation PLAN - Transplant service to evaluate today and determine if vermin exterminator care would be a barrier to future [...] recommended home health; patient and family requested chcf facility PLAN - Contacted transplant service to [...] recommended home health; patient and family requested chcf facility PLAN - Plan for placement in long-term care Assessment & Plan (06/29/2025 8:30 AM EDT): - Patient reports poor PO intake at home in s/o large-volume ascites - Family involved in and amenable to discussion of placement; concerned for declining ability to perform ADLs - PT/OT recommended home health; patient and family requested chcf facility PLAN - Plan for placement in [...] consulted; recs appreciated - Patient agreeable to chcf facility Assessment & Plan (06/26/2025 3:57 PM [...] 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 08/22/2018 Assessment [...] Plan (06/30/2025 1:48 PM EDT): - 06/28 SUBSTATION MECHANIC diet recommendations; see below - Patient continues to eat full diet without difficulty PLAN - Continue to hold omeprazole Assessment & Plan (06/29/2025 12:33 PM EDT): - SUBSTATION MECHANIC attempted to see patient 8/7; was in procedure - 06/28 SUBSTATION MECHANIC diet recommendations: IDDSI Level 7 - Regular and IDDSI Level 0- Thin PLAN - Continue to hold omeprazole Assessment & Plan (06/29/2025 8:30 AM EDT): - SUBSTATION MECHANIC attempted to see patient 8/7; was in procedure PLAN - Awaiting SUBSTATION MECHANIC eval - Continue to hold omeprazole Assessment & Plan (06/27/2025 3:08 PM EDT): - Chronic; advised to hold home omeprazole at most recent nephrology appointment due to concern for CARLOTTA PLAN - Continue to hold omeprazole - Ordered SUBSTATION MECHANIC consult; appreciate recommendations Assessment & Plan (06/26/2025 3:57 PM EDT): - Chronic; advised to hold home omeprazole at most recent nephrology appointment due to concern for CARLOTTA PLAN - Continue to hold omeprazole - Ordered SUBSTATION MECHANIC consult; appreciate recommendations Assessment & Plan (06/26/2025 [...] Problem Noted Date Diagnosed Date Resolved Date Hepatic encephalopathy 08/18/202508/20 Assessment & Plan (08/22/2025 6:34 PM EDT): - 08/19 Concern for hepatic encephalopathy with hallucinations and recent altered mental status in the setting of poor sleep. Ammonia level ordered and improved from prior to presenting. -08/20 Ammonia level decreasing (133 on 08/17 down to 77 on 08/19). Hallucinations absent today on rounds, and she is Aox4. Continue lactulose 20 TID. Assessment & Plan (08/19/2025 2:10 PM EDT): Concern for hepatic encephalopathy with hallucinations and recent altered mental status in the setting of poor sleep. Ammonia level ordered and improved from prior to presenting. Vasovagal syncope 07/01/2025 07/09/2025 Assessment & Plan [...] PM EDT): - 1.6 on admission; 1.7 8 PLAN - Consider repletion if continues to [...] - Continue daily vit D 1000 U; 05769 U to be ordered on 06/30 if [...] - Continue daily vit D 1000 U; 44233 U to be ordered on 06/30 if [...] - Continue daily vit D 1000 U; 16224 U to be ordered on 06/30 if [...] - Continue daily vit D 1000 U; 75545 U to be ordered on 06/30 if [...] - Continue daily vit D 1000 U; 67656 U to be ordered on 06/30 if [...] daily, Vit D 1000 U daily and 35315 U weekly (Sundays) PLAN: - Admitted to [...] - Continue daily vit D 1000 U; 73556 U to be ordered on 06/30 if still admitted - Renally dose medications and avoid nephrotoxic agents CARLOTTA (acute kidney injury) 06/25/2025 Other ascites 01/22/2025 07/03/2025 Altered mental state 01/08/2025 025 Hepatic encephalopathy 10/14/202407/03 Acute kidney injury superimp osed on stage 3b chronic kidney disease 10/14/2024 08/20/2025 Assessment & Plan (08/22/2025 6:34 PM EDT): -08/19 Creatinine up to 2.66 from baseline of 1.2 with eGFR of 19. Balance extracellular fluid overload with adequate intravascular volume status, 2L per day fluid restriction and trend creatinine. -08/20 Creatinine down to 2.42 from 2.66 yesterday. Continue current daily fluid intake and track creatinine as CARLOTTA resolves. Assessment & Plan (08/19/2025 2:10 PM EDT): Creatinine up to 2.66 from baseline of 1.2 with eGFR of 19. Balance extracellular fluid overload with adequate intravascular volume status, 2L per day fluid restriction and trend creatinine. Assessment & Plan (07/07/2025 12:59 PM EDT): [...] - Continue daily vit D 1000 U; 03430 U to be ordered on 06/30 if [...] - Continue daily vit D 1000 U; 48256 U to be ordered on 06/30 if [...] - Continue daily vit D 1000 U; 61021 U to be ordered on 06/30 if [...] - Continue daily vit D 1000 U; 79022 U to be ordered on 06/30 if [...] - Continue daily vit D 1000 U; 03567 U to be ordered on 06/30 if [...] daily, Vit D 1000 U daily and 95237 U weekly (Sundays) PLAN: - Admitted to [...] - Continue daily vit D 1000 U; 42530 U to be ordered on 06/30 if [...] (07/17/2021): Added automatically from request for surgery [id number] Mixed hearing loss of right ear 08/24/2019 [...] Encounters Date Type Department Care Team Description 08/22/2025 12:20 PM EDT - 08/22/2025 11:59 PM EDT Hospital Encounter [facility] [address] [place] [address] Arrived Discharge Disposition: Home or Self Care 08/22/2025 8:54 AM EDT - 08/22/2025 12:19 PM EDT Hospital Encounter [facility] Interventional [facility] [address] [place] [address] Candy Ness, RN Other ascites; Alcoholic cirrhosis of liver with ascites Discharge Disposition: Home or Self Care 08/22/2025 Travel 08/21/2025 Patient Outreach [facility] [address] [place] [address], [address] [place] [phone] Shaniqua Trevino LPN TCM 08/20/2025 Travel 08/19/2025 Travel 08/18/2025 5:21 AM EDT - 08/20/2025 3:15 PM EDT Hospital Encounter [facility] Inpatient [address] [place] [phone] Alvarez Brice MD Rock, MD Susana Saunders Jessica L, MD Hepatic encephalopathy (CMS/HCC) (Primary Dx); Urinary tract infection without hematuria, site unspecified Discharge Disposition: Home or Self Care 08/18/2025 Travel 08/17/2025 Orders Only External Location [address] [place] [address] Rowan Castellano S, DO 08/17/2025 Orders Only External Location [address] [place] [phone] Provider, External 08/17/2025 Orders Only External Location [address] [place] [address] Provider, External 08/17/2025 Orders Only External Location [address] [place] [phone] Provider, External 08/16/2025 Telephone [facility] [address] [place] [phone] AhSharif santana DPM HCN - Patient Message 2025 8:47 AM EDT - 2025 11:59 PM EDT Hospital Encounter [facility] [address] [place] [phone] Kami Cool, RN Alcoholic cirrhosis of liver with ascites (CMS/HCC); Other ascites Discharge Disposition: Home or Self Care 2025 Travel 08/08/2025 2:27 PM EDT - 08/08/2025 11:59 PM EDT Hospital Encounter [facility] [address] [place] [phone] Discharge Disposition: Home or Self Care 08/08/2025 8:51 AM EDT - 08/08/2025 2:26 PM EDT Hospital Encounter [facility] [address] [place] [phone] Mariam Thomas, RN Other ascites Discharge Disposition: Home or Self Care 08/08/2025 Travel 08/05/2025 Travel 08/01/2025 12:48 PM EDT - 08/01/2025 11:59 PM EDT Hospital Encounter [facility] [address] [place] [phone] Discharge Disposition: Home or Self Care 08/01/2025 8:36 AM EDT - 08/01/2025 12:47 PM EDT Hospital Encounter [facility] [address] [place] [address] Pretty Enriquez, RN Other ascites Discharge Disposition: Home or Self Care 08/01/2025 Travel 07/31/2025 Travel 07/25/2025 1:20 PM EDT - 07/25/2025 11:59 PM EDT Hospital Encounter [facility] [address] [place] [phone] Discharge Disposition: Home or Self Care 07/25/2025 8:57 AM EDT - 07/25/2025 1:19 PM EDT Hospital Encounter [facility] [address] [place] [phone] Kandice Silva, RN Pleural effusion associated with hepatic disorder (Primary Dx); Shortness of breath; Pleural effusion; Other ascites Discharge Disposition: Home or Self Care 07/25/2025 Travel 07/24/2025 Travel 07/19/2025 Patient Outreach [facility] [address] [place] [address] Jeaneth Oscar LPN [facility] 07/18/2025 12:08 PM EDT - 07/18/2025 11:59 PM EDT Hospital Encounter [facility] Radiology [address] [place] [address] Discharge Disposition: Home or Self Care 07/18/2025 9:08 AM EDT - 07/18/2025 12:07 PM EDT Hospital Encounter [facility] Interventional Radiology [address] [place] [address] Stu Samayoa Shortness of breath; Pleural effusion; Other ascites Discharge Disposition: Home or Self Care 07/18/2025 Travel 07/11/2025 12:10 PM EDT - 07/11/2025 11:59 PM EDT Hospital Encounter [facility] Radiology [address] [place] [address] Discharge Disposition: Home or Self Care 07/11/2025 9:01 AM EDT - 07/11/2025 12:09 PM EDT Hospital Encounter [facility] Interventional Radiology [address] [place] [address] Stacy Houston RN Shortness of breath; Pleural effusion; Other ascites Discharge Disposition: Home or Self Care 07/11/2025 Travel 07/10/2025 Patient Outreach POPULATION [address] [place] [address] Monique Tapia LPN [facility] 07/07/2025 [facility] [address] [place] [address] Lisa Acuna, CLAMSHELL ENGINEER, DNP ETD (Eustachian tube dysfunction), bilateral 07/04/2025 Travel 07/03/2025 Travel 06/27/2025 Travel 06/26/2025 Patient Outreach POPULATION [address] [place] [address] Alina Lovett, RN Link 06/25/2025 2:14 PM EDT - 07/09/2025 1:19 PM EDT Hospital Encounter PAV S Inpatient [address] [place] [address] Kadie Mauro MD [place], [place] [...] Care 06/25/2025 1:00 PM EDT Office Visit [facility] Nephrology, Bone & Mineral Metabolism [address] [facility], [address] [place] [address] Arnulfo Joy MD Cirrhosis of liver with ascites, unspecified hepatic cirrhosis type (CMS/HCC) (Primary Dx); CARLOTTA (acute kidney injury) (CMS/HCC); Chronic kidney disease, stage 3b (CMS/HCC); Type 2 diabetes mellitus with hyperglycemia, with long-term current use of insulin (CMS/HCC) 06/25/2025 Travel 06/23/2025 Orders Only External Location [address] [place] [address] Kandice Maldonado, CLAMSHELL ENGINEER 06/23/2025 Orders Only External Location [address] [place] [address] Kandice Maldonado, CLAMSHELL ENGINEER 06/23/2025 Orders Only External Location [address] [place] [address] Kandice Maldonado, CLAMSHELL ENGINEER 06/23/2025 Refill [facility] Bone & Mineral Metabolism [address] [facility], [address] [place] [address] Ar Dominique MD Vitamin D deficiency 06/21/2025 Telephone [facility] [address] [place] [address] Alvarez Ordaz MD HCN Clinical Concern/Question 06/20/2025 1:04 PM EDT - 06/20/2025 11:59 PM EDT Hospital Encounter [facility] Radiology [address] [place] [address] Discharge Disposition: Home or Self Care 06/20/2025 9:03 AM EDT - 06/20/2025 1:03 PM EDT Hospital Encounter [facility] Interventional Radiology [address] [place] [address] Shanthi Rooney Other ascites Discharge Disposition: Home or Self Care 06/20/2025 Telephone [facility] [address] [place] [address] Alvarez Ordaz MD 06/20/2025 Orders Only [facility] Interventional Radiology [address], [address] [place] [address] Preeti Andersen, ADRI Other ascites (Primary Dx) 06/20/2025 Travel 06/17/2025 Telephone [facility] [address] [place] [address] Deysi Antonio MD 06/14/2025 Telephone [facility] [address] [place] [address] Alvarez Ordaz MD 06/14/2025 Orders Only [facility] [address] [place] [address] Alvarez Ordaz MD 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) (CMS/HCC) (Primary Dx) 06/14/2025 Orders Only [facility] Inter[facility]iology [address] [place] [address] Marianna Gordon N, CLAMSHELL ENGINEER Shortness of breath (Primary Dx); Pleural effusion; Other ascites 06/14/2025 Telephone [facility] [address] [place] [address] Alvarez Ordaz MD 06/14/2025 Orders Only [facility] Inter[facility] Radiology [address] [place] [address] Marianna Gordon, CLAMSHELL ENGINEER Other ascites (Primary Dx); Pleural effusion; Shortness of breath; Alcoholic cirrhosis of liver with ascites (CMS/HCC) 06/13/2025 1:32 PM EDT - 06/13/2025 11:59 PM EDT Hospital Encounter [facility] Radiology [address] [place] [address] Discharge Disposition: Home or Self Care 06/13/2025 10:56 AM EDT - 06/13/2025 1:31 PM EDT Hospital Encounter [facility] Interventional Radiology [address] [place] [address] Alvarez Mcclure Other ascites Discharge Disposition: Home or Self Care 06/13/2025 Travel 06/12/2025 Travel 06/12/2025 Orders Only [facility] [address] [place] [address] Alvarez Ordaz MD 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) (CMS/HCC) (Primary Dx); Protein malnutrition (CMS/HCC); Weight loss; Cognitive impairment 06/11/2025 11:20 AM EDT Office Visit [facility] [address] [address] Octavia Herrera PA Hepatic encephalopathy (CMS/HCC) (Primary Dx); 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 06/11/2025 10:30 AM EDT Social Work [facility] [address] [address] Lea Reilly LCSW 06/11/2025 Travel 06/10/2025 Results Follow-Up [facility] [address] [place] [address] Alvarez Ordaz MD 06/09/2025 [facility] [employer] [place] Bone [facility] Mineral Metabolism [address] [facility], [address] [place] [address] Ar Dominique MD Chronic kidney disease, stage 3b (CMS/HCC) 06/06/2025 11:20 AM EDT - 06/06/2025 11:59 PM EDT Hospital Encounter [facility] Radiology [address] [place] [address] Discharge Disposition: Home or Self Care 06/06/2025 7:58 AM EDT - 06/06/2025 11:19 AM EDT Hospital Encounter [facility] Interventional Radiology [address] [place] [address] Golden Wilhelm RN Other ascites Discharge Disposition: Home or Self Care 06/06/2025 Travel 06/05/2025 2:00 PM EDT Office Visit [facility] [address] [place] [address] Alvarez Ordaz MD Medicare annual wellness visit, initial (Primary Dx); Coronary artery disease of [place] artery of [place] heart with stable angina pectoris ([facility]/HCC); Diabetic peripheral neuropathy ([facility]/HCC); Type 2 diabetes mellitus with other diabetic neurological complication ([facility]/HCC); Chronic obstructive pulmonary disease, unspecified COPD type ([facility]/HCC); JONATHAN treated with BiPAP; Chronic kidney disease, stage 3b (CMS/HCC); Hyperlipidemia, unspecified hyperlipidemia type; Type 2 diabetes mellitus with hyperglycemia, with long-term current use of insulin ([facility]/HCC); Anemia of chronic disease; Anxiety disorder, unspecified type; 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) (CMS/HCC); Hypomagnesemia; Vitamin D deficiency; Hyperbilirubinemia; Protein malnutrition (CMS/HCC) 06/05/2025 Travel 06/01/2025 [facility] [place] Bone [facility] Mineral Metabolism [address] [facility], [address] [place] [address] Ar Dominique MD Chronic kidney disease, stage 3b (CMS/HCC) 06/01/2025 Refill [facility] [address] [place] [address] Octavia Herrera PA 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) (CMS/HCC) 05/31/2025 12:36 PM EDT - 05/31/2025 8:07 PM EDT Emergency [facility] Emergency Department [address] [place] [address] Torrie Turner MD Katirji, Linda Y, MD Altered mental status, unspecified altered mental status type (Primary Dx) Discharge Disposition: Home or Self Care 05/31/2025 Travel 05/30/2025 8:58 AM EDT - 05/30/2025 11:59 PM EDT Hospital Encounter [facility] Interventional Radiology [address] [place] [address] Aayush-Rishabh rich, Shirley Hermosillo RN Other ascites; Type 2 diabetes mellitus with hyperglycemia, with long-term current use of insulin ([facility]); Chronic kidney disease, stage 3b ([facility]/HCC) Discharge Disposition: Home or Self Care 05/30/2025 Travel 05/29/2025 Patient Outreach POPULATION HEALTH [address] [facility], [address] [place] [address] Tamera Isabel LPN AWJulius 05/29/2025 Travel 05/28/2025 Travel from Last 3 Months Immunizations Immunization [...] Hypertension Mother Karime Singletary Kidney disease Mother aKrime Singletary Thyroid disease Mother Karime Singletary Dementia [...] 2 Obesity Son 2 Asthma Son 3 [facility] Son 3 [facility] Mental illness Son 3 [facility] 4 [facility] Relation Name Status Comments Father Eliseo Singletary Maternal Grandfather Maternal Grandmother Christine Dick Mother Karime Singletary Alive Other Paternal Grandfather Paternal Grandmother Anish Singletary Sister Lj Bernal Alive Son 1 Alive Son 2 Alive Son 3 [facility] Al[facility] Son 4 Viralarnoldo Ordaz Alive Social History Tobacco Use Types [...] week 05/29/2025 How often do you attend [facility] or worship services? Never 05/29/2025 Do you [...] one occasion? Never 06/25/2025 [facility] [place] of Occupat ional Health - Occupational Stress [...] living in a intermediate (including now)? No 08/19/2025 [facility] Utilities Answer Date Recorded In the [...] drink first t kennedy in the morning (EYE-BUZZLE BUFFER) to steady your nerves or to get [...] Sign Reading Time Taken Comments Blood Pressure 107/55 08/22/2025 1:00 PM EDT Pulse 81 08/22/2025 1:00 PM EDT Temperature 36.6 C (97.9 F) 08/22/2025 12:12 PM EDT Respiratory Rate 17 08/22/2025 1:00 PM EDT Oxygen Saturation 91% 08/22/2025 1:00 PM EDT Inhaled Oxygen Concentration - - Weight 89.9 kg (198 lb 3.1 oz) 08/22/2025 10:52 AM EDT Height 165.1 cm (5' 5 ) 08/22/2025 10:52 AM EDT Body Mass Index 32.98 08/22/2025 10:52 AM EDT Plan of Treatment Upcoming Encounters Date Type Department Care Team (Late st Contact Info) Description 08/26/2025 1:00 PM EDT Office Visit [facility] [address] [place] [address] Miranda Hobson, CLAMSHELL ENGINEER [address] [place] [address] 08/29/2025 10:00 AM EDT Appointment [facility] Interventional Radiology [address] [place] [address] 08/29/2025 11:00 AM EDT Appointment [facility] Interventional Radiology [address] [place] [address] 09/03/2025 8:40 AM EDT Office Visit [facility] [address] [facility], [address] [place] [address] Lillie Pritchard MD [address] [place] [address] 09/05/2025 10:00 AM EDT Appointment [facility] Interventional Radiology [address] [place] [address] 09/05/2025 11:00 AM EDT Appointment [facility] Interventional Radiology [address] [place] [address] 09/17/2025 9:45 AM EDT Clinical Support [facility] [address] [place] [address] 09/17/2025 10:30 AM EDT Social Work [facility] [address] [place] [address] Lea Reilly, [place] [address] 09/17/2025 11:20 AM EDT Office Visit [facility] [address] [place] [address] Octavia Herrera, PA [address] [place] [address] Health Maintenance Due Date Last Done Comments Dental Prophylaxis 1962 Dental X-Ray: Bitewings 1962 Dental X-Ray: Full Mouth 1962 [facility]-/Child/Adol SDOH Screenings 1962 [id number] Vaccine (#1) 1967 Diabetes: Dental Exam 1972 [...] history exists [facility]-Bone Density Scan 11/07/2025 11/07/2024 [facility]-Breast Cancer Screening 01/25/2026 03/0 05/2024, 01/26/2024, 10/21/2022, Additional history exists [facility]- SDOH Screenings 02/16/2026 [facility]-Adult SDOH Screenings 02/16/2026 08/19/2025 [facility]-Medicare Annual Wellness (AWV) 06/05/2026 06/05/2025 [facility]-Depression [...] 2023, 10/02/2024, 10/28/2022 [facility]-Obesity Intervention Completed 025, 08/08/2025, 08/01/2025, Additional history exists HPV Vaccines Aged Out [...] liver with ascites US GUIDED THORACENTESIS Routine 08/22/2025 12:05 PM EDT Other ascites BODY FLUID, CYTOSPIN, PATHOLOGIST INTERPRETATION Routine 08/22/2025 11:06 AM EDT GLUCOSE, PERITONEAL FLUID Routine 08/22/2025 11:06 AM EDT TOTAL PROTEIN, PERITONEAL FLUID Routine 08/22/2025 11:06 AM EDT BODY FLUID CELL COUNT W/ MANUAL DIFFERENTIAL Routine 08/22/2025 11:06 AM EDT POCT GLUCOSE METER UNSOLICITED RESULTS Routine 08/20/2025 12:05 PM EDT POCT GLUCOSE METER UNSOLICITED RESULTS Routine 08/20/2025 7:23 AM EDT PROTHROMBIN TIME(PT) / INR Routine 08/20/2025 3:26 AM EDT PHOSPHORUS, PLASMA Routine 08/20/2025 3: 26 AM EDT MAGNESIUM, PLASMA Routine 08/20/2025 3:2 6 AM EDT COMPREHENSIVE METABOLIC PANEL, PLASMA Routine 08/20/2025 3:26 AM EDT CBC WITH AUTO DIFFERENTIAL Routine 08/20/2025 3:26 AM EDT POCT GLUCOSE [...] / INR Routine 08/19/2025 1:30 AM EDT PHOSPHORUS, PLASMA Routine 08/19/2025 1: 06 AM EDT MAGNESIUM, PLASMA Routine 08/19/2025 1:0 6 AM EDT COMPREHENSIVE METABOLIC PANEL, PLASMA Routine 08/19/2025 1:06 AM EDT CBC WITH AUTO DIFFERENTIAL Routine 08/19/2025 1:06 AM EDT POCT GLUCOSE [...] ECG ADULT STAT 08/18/2025 6:18 AM EDT OSMOLALITY, SERUM Add-On 08/18/2025 6:1 1 AM EDT BLOOD GAS PANEL, VENOUS STAT 08/18/2025 6:11 AM EDT LIPASE, PLASMA STAT 08/18/2025 6:11 AM EDT PHOSPHORUS, PLASMA STAT 08/18/2025 6: 11 AM EDT MAGNESIUM, PLASMA STAT 08/18/2025 6:1 1 AM EDT COMPREHENSIVE METABOLIC PANEL, PLASMA STAT 08/18/2025 6:11 AM EDT PROTHROMBIN TIME(PT) / INR STAT 08/18/2025 6:11 AM EDT CBC WITH AUTO DIFFERENTIAL STAT 08/18/2025 6:11 AM EDT XR OUTSIDE IMAGES 08/17/2025 4:[address] THORACIC OUTSIDE IMAGES 08/17/2025 4:[address] THORACIC OUTSIDE IMAGES 08/17/2025 4:[address] NEURO OUTSIDE IMAGES 08/17/2025 4:36 PM EDT US CHEST Routine 2025 10:08 AM EDT [...] 47 AM EDT MAGNESIUM, PLASMA Routine 07/04/2025 4:47 AM EDT CBC WITH [...] with long-term current use of insulin (CMS/HCC) HEMOGLOBIN A1C Routine 05/23/2025 9:27 AM EDT Type 2 diabetes mellitus with hyperglycemia, with long-term current use of insulin (CMS/HCC) COMPREHENSIVE ORAL EVALUATION - NEW OR [...] Maintenance Results * XR Chest 1 View (08/22/2025 12:30 PM EDT) Only the most recent of14 [...] on 08/22/2025 1:19 PM us Shaniqua Mccurdy CLAMSHELL ENGINEER IMG XR PROCEDURES Final Resu lt * US Guided Abdominal Paracentesis (08/22/2025 12:05 PM EDT) Only the most recent of12 [...] complicated by ascites and hepatic hydrothorax. TECHNIQUE: Continuous Loft Operator: Shaniqua Mccurdy APRN Secondary Executive Compensation Analyst: None. Rad Dose: NA Medications: Continuous physiologic [...] cirrhosis complicated by ascites andhepatic hydrothorax. TECHNIQUE: Continuous Loft Operator: Shaniqua Mccurdy APRN Secondary Executive Compensation Analyst: None. Rad Dose: NA Medications: Continuous physiologic [...] MD on 08/22/2025 5:40 PM us Marianna Dixon Gordon CLAMSHELL ENGINEER IMG US PROCEDURES Final Resu lt * US Guided Thoracentesis (08/22/2025 12:05 PM EDT) Only the most recent of11 [...] complicated by ascites and hepatic hydrothorax. TECHNIQUE: Continuous Loft Operator: Shaniqua Mccurdy APRN Secondary Executive Compensation Analyst: None. Rad Dose: NA Medications: Continuous physiologic [...] cirrhosis complicated by ascites andhepatic hydrothorax. TECHNIQUE: Continuous Loft Operator: Shaniqua Mccurdy APRN Secondary Executive Compensation Analyst: None. Rad Dose: NA Medications: Continuous physiologic [...] on 08/22/2025 5:42 PM us Marianna Gordon CLAMSHELL ENGINEER IMG US PROCEDURES Final Resu lt * (ABNORMAL) Body Fluid Cell Count With Diff - Ascites (08/22/2025 11:06 AM EDT) Only the most recent of13 resultswithin the time period is included. Color, Body fluid [facility] LAB HEMATOLOGY METHOD 08/22/2025 6:59 PM EDT [facility] Appearance, Body fluid Cloudy(A) LAB HEMATOLOGY METHOD 08/22/2025 6:59 PM EDT [facility] Volume, Body fluid 9.0 cc LAB HEMATOLOGY METHOD 08/22/2025 6:59 PM EDT [facility] Fluid Container Tube 2 LAB HEMATOLOGY METHOD 08/22/2025 6:59 PM EDT [facility] Red Blood Cell Count, Body fluid 8,000 uL LAB HEMATOLOGY METHOD 08/22/2025 6:59 PM EDT [facility] Total Nucleated Cell Count, Body fluid 176 uL LAB HEMATOLOGY METHOD 08/22/2025 6:59 PM EDT [facility] Neutrophils %, Body fluid 2 % LAB HEMATOLOGY METHOD 08/22/2025 6:59 PM EDT [facility] Lymphocytes %, Body fluid 91 % LAB HEMATOLOGY METHOD 08/22/2025 6:59 PM EDT [facility] Monocytes/Macro phages %, Body fluid 5 % LAB HEMATOLOGY METHOD 08/22/2025 6:59 PM EDT [facility] Eosinophils %, Body fluid 0 % LAB HEMATOLOGY METHOD 08/22/2025 6:59 PM EDT [facility] Lining/Mesothel ial Cells %, Body fluid 2 % LAB HEMATOLOGY METHOD 08/22/2025 6:59 PM EDT [facility] Neutrophils Absolute (PMN), Body fluid 4 uL LAB HEMATOLOGY METHOD 08/22/2025 6:59 PM EDT [facility] Lymphocytes Absolute, Body fluid 160 uL LAB HEMATOLOGY METHOD 08/22/2025 6:59 PM EDT [facility] Monocytes/Macro phages Absolute, Body fluid 9 uL LAB HEMATOLOGY METHOD 08/22/2025 6:59 PM EDT [facility] Eosinophils Absolute, Body fluid 0 uL LAB HEMATOLOGY METHOD 08/22/2025 6:59 PM EDT [facility] Basophils Absolute, Body fluid 0 uL LAB HEMATOLOGY METHOD 08/22/2025 6:59 PM EDT [facility] Lining/Mesothel ial Cells Absolute, Body fluid 4 uL LAB HEMATOLOGY METHOD 08/22/2025 6:59 PM EDT [facility] Basophils %, Body fluid 0 % LAB HEMATOLOGY METHOD 08/22/2025 6:59 PM EDT [facility] Body Fluid Peritoneal fluid / Unknown Non-blood Collection / Unknown 08/22/2025 11:06 AM EDT 08/22/2025 12:17 PM EDT us Shaniqua Mccurdy CLAMSHELL ENGINEER LAB BODY FLUIDS AND STOOLS ORDERABLES NO SPECIMEN TYPE/SOURCE Final Result Performing Organization Address City/[facility]/ZIP Co de Phone Number [facility] [address] [place] [address] * Body fluid, cytospin, pathologist interpretation (08/22/2025 11:06 AM EDT) Only the most recent of13 resultswithin the time period is included. Specimen Type Body Fluid LAB HEMATOLOGY METHOD 08/23/2025 2:36 PM EDT [facility] Specimen Source, Body Fluid Peritoneal Fluid LAB HEMATOLOGY METHOD 08/23/2025 2:36 PM EDT [facility] Clinical Diagnosis, Body Fluid Cirrhosis, ascites LAB HEMATOLOGY METHOD 08/23/2025 2:36 PM EDT [facility] Interpretation , Body Fluid No evidence of malignancy; chronic inflammatory cells (lymphocytosis) , moderate blood A resident was involved in the service. I attest I examined the relevant preparations for the specimens and confirmed the diagnosis or interpretation. 08/23/2025 2:36 PM EDT [facility] Pathologist Signature, Body Fluid 08/23/2025 2:36 PM EDT [facility] Comment:Reviewed by: Iza Blue MD LAB CP ASR DISCLAIMER Yes 08/23/2025 2:36 PM EDT [facility] Body Fluid Peritoneal fluid / Unknown Non-blood Collection / Unknown 08/22/2025 11:06 AM EDT 08/22/2025 12:17 PM EDT us Shaniqua Mccuryd CLAMSHELL ENGINEER LAB BODY FLUIDS AND STOOLS O RDERABLES Final Result Performing Organization Address City/[facility]/ZIP Co de Phone Number [facility] [address] [place] [address] * Protein - Ascites (08/22/2025 11:06 AM EDT) Only the most recent of12 resultswithin the time period is included. Total Protein, Fluid 1 g/dL 08/22/2025 1:08 PM EDT [facility] Peritoneal Fluid Peritoneal cavity structure / Unknown Non-blood Collection / Unknown 08/22/2025 11:06 AM EDT 08/22/2025 12:17 PM EDT Narrative [facility] - 08/22/2025 1:08 PM EDT This test was developed and its performance characteristics determined by [facility]. The U.S. Food and Drug Administration has not approved or cleared this test. However, FDA clearance or approval is not currently required for clinical use. The results are not intended to be used as the sole means for clinical diagnosis or patient management decisions. us Shaniqua Achieve X CLAMSHELL ENGINEER LAB BODY FLUIDS AND STOOLS O RDERABLES Final Result Performing Organization Address City/[facility]/ZIP Co de Phone Number [facility] [address] [place] [address] * Glucose - Ascites (08/22/2025 11:06 AM EDT) Only the most recent of6 resultswithin the time period is included. Glucose, Fluid 345 mg/dL 08/22/2025 1:08 PM EDT [facility] Peritoneal Fluid Peritoneal cavity structure / Unknown Non-blood Collection / Unknown 08/22/2025 11:06 AM EDT 08/22/2025 12:17 PM EDT Narrative [facility] - 08/22/2025 1:08 PM [...] 3) Glucose < 50 mg/dL. us Shaniqua Achieve X CLAMSHELL ENGINEER LAB BODY FLUIDS AND STOOLS O RDERABLES Final Result Performing Organization Address City/[facility]/ZIP Co de Phone Number [facility] [address] [place] [address] * (ABNORMAL) POCT glucose meter (08/20/2025 12:05 PM EDT) Only the most recent of75 resultswithin the time period is included. Pathologist [facility] POCT Glucose 279(H) 74 - 99 mg/dL [...] for testing. Comment 08/20/2025 12:07 PM EDT [facility] Executive Compensation Analyst ID Kevin Serrano 12:07 PM EDT [facility]ALTH[facility]ARE LAB Device ID [id number] 08/20/2025 12:07 PM EDT [facility] Specimen Type POC Capillary 08/20/2025 12:07 PM EDT [facility] Blood Capillary blood specimen / Unknown 08/20/2025 12:05 PM EDT 08/20/2025 12:07 PM EDT Sushma Meza MD LAB POINT OF CARE TE ST DOCKED DEVICE UNSOLICITED RESULTS Final Result Performing Organization Address City/State/[facility] Co de Phone Number [facility] [address] [place] [address] * (ABNORMAL) Protime-INR (08/20/2025 3:26 AM EDT) Only the most recent of15 resultswithin the time period is included. Pathologist [facility] Prothrombin Time 23.0(H) 12.0 - 14.3 sec 08/20/2025 3:51 AM EDT [facility] INR 2.0(H) 0.9 - 1.1 08/20/2025 3:51 AM EDT [facility]ALTH[facility] Blood Venous blood [...] INR 2.5 to 3.5 Prevention of recurrent [facility] INR 2.5 to 3.5 us Sushma Meza MD LAB BLOOD ORDERABLES Final R esult [facility] [address] [place] [id number] * (ABNORMAL) CBC and differential (08/20/2025 3:26 AM EDT) Only the most recent of20 resultswithin the time period is included. WBC Count 4.76 3.70 - 10.30 10*3/uL LAB HEMATOLOGY METHOD 08/20/2025 3:42 AM EDT [facility] RBC Count 2.72(L) 3.90 - 5.20 10*6/uL LAB HEMATOLOGY METHOD 08/20/2025 3:42 AM EDT [facility] HGB 8.6(L) 11.2 - 15.7 g/dL LAB HEMATOLOGY METHOD 08/20/2025 3:42 AM EDT [facility] HCT 24.9(L) 34.0 - 45.0 % LAB HEMATOLOGY METHOD 08/20/2025 3:42 AM EDT [facility] Platelet Count 59(L) 155 - 369 10*3/uL LAB HEMATOLOGY METHOD 08/20/2025 3:42 AM EDT [facility] MCV 92 79 - 98 fL LAB HEMATOLOGY METHOD 08/20/2025 3:42 AM EDT [facility] MCH 31.6 26.0 - 32.0 pg LAB HEMATOLOGY METHOD 08/20/2025 3:42 AM EDT [facility] MCHC 34.5 30.7 - 35.5 g/dL LAB HEMATOLOGY METHOD 08/20/2025 3:42 AM EDT [facility] RDW 17.2(H) 11.5 - 14.5 % LAB HEMATOLOGY METHOD 08/20/2025 3:42 AM EDT [facility] MPV 10.9 8.8 - 12.5 fL LAB HEMATOLOGY METHOD 08/20/2025 3:42 AM EDT [facility] nRBC 0.0 <=0.0 per 100 WBCs LAB HEMATOLOGY METHOD 08/20/2025 3:42 AM EDT [facility] Differential Type Automated LAB HEMATOLOGY METHOD 08/20/2025 3:42 AM EDT [facility] Neutrophils % 64 % LAB HEMATOLOGY METHOD 08/20/2025 3:42 AM EDT [facility] Lymphocytes % 16 % LAB HEMATOLOGY METHOD 08/20/2025 3:42 AM EDT [facility] Monocytes % 15 % LAB HEMATOLOGY METHOD 08/20/2025 3:42 AM EDT [facility] Eosinophils % 4 % LAB HEMATOLOGY METHOD 08/20/2025 3:42 AM EDT [facility] Basophils % 1 % LAB HEMATOLOGY METHOD 08/20/2025 3:42 AM EDT [facility] Immature Granulocytes % 0 % LAB HEMATOLOGY METHOD 08/20/2025 3:42 AM EDT [facility] Neutrophils Absolute 3.02 1.60 - 6.10 10*3/uL LAB HEMATOLOGY METHOD 08/20/2025 3:42 AM EDT [facility] Lymphocytes Absolute 0.77(L) 1.20 - 3.90 10*3/uL LAB HEMATOLOGY METHOD 08/20/2025 3:42 AM EDT [facility] Monocytes Absolute 0.69 0.30 - 0.90 10*3/uL LAB HEMATOLOGY METHOD 08/20/2025 3:42 AM EDT [facility] Eosinophils Absolute 0.21 0.00 - 0.50 10*3/uL LAB HEMATOLOGY METHOD 08/20/2025 3:42 AM EDT [facility] Basophils Absolute 0.05 0.00 - 0.10 10*3/uL LAB HEMATOLOGY METHOD 08/20/2025 3:42 AM EDT [facility] Immature Granulocytes Absolute 0.02 0.00 - 0.06 10*3/uL LAB HEMATOLOGY METHOD 08/20/2025 3:42 AM EDT [facility] Blood Venous blood specimen / Unknown Venipuncture / Unknown 08/20/2025 3:26 AM EDT 08/20/2025 3:39 AM EDT [facility] - 08/20/2025 3:42 AM EDT Therapeutic decision making should be based on absolute values, rather than percentages. us Sushma Meza MD LAB BLOOD ORDERABLES Final R esult [facility] [address] [place] [address] * Phosphorus (08/20/2025 3:26 AM EDT) Only the most recent of19 resultswithin the time period is included. Phosphorus, Plasma 4.3 2.5 - 4.5 mg/dL 08/20/2025 4:14 AM EDT [facility] Blood Venous blood specimen / Unknown Venipuncture / Unknown 08/20/2025 3:26 AM EDT 08/20/2025 3:37 AM EDT us Sushma Meza MD LAB BLOOD ORDERABLES Final R [facility] Performing Organization Address City/[facility] de Phone Number [facility] [address] [place] [address] * (ABNORMAL) Magnesium (08/20/2025 3:26 AM EDT) Only the most recent of20 resultswithin the time period is included. Pathologist [facility] Magnesium, Plasma 1.6(L) 1.9 - 2.4 mg/dL 08/20/2025 4:14 AM EDT [facility] Blood Venous blood specimen / Unknown Venipuncture / Unknown 08/20/2025 3:26 AM EDT 08/20/2025 3:37 AM EDT us Sushma Meza MD LAB BLOOD ORDERABLES Final R [facility] Performing Organization Address City/[facility] Co de Phone Number [facility] [address] [place] [address] * (ABNORMAL) Comprehensive metabolic panel (08/20/2025 3:26 AM EDT) Only the most recent of20 resultswithin the time period is included. Glucose, Plasma 274(H) 74 - 99 mg/dL 08/20/2025 4:14 AM EDT [facility] BUN, Plasma 51(H) 8 - 23 mg/dL 08/20/2025 4:14 AM EDT [facility] Creatinine, Plasma 2.42(H) 0.60 - 1.10 mg/dL 08/20/2025 4:14 AM EDT [facility] BUN/Creatinine Ratio 21 08/20/2025 4:14 AM EDT [facility] Sodium, Plasma 132(L) 136 - 145 mmol/L 08/20/2025 4:14 AM EDT [facility] Potassium, Plasma 4.1 3.6 - 4.9 mmol/L 08/20/2025 4:14 AM EDT [facility] Chloride, Plasma 101 97 - 107 mmol/L 08/20/2025 4:14 AM EDT [facility] CO2, Plasma 20(L) 22 - 29 mmol/L 08/20/2025 4:14 AM EDT [facility] Anion Gap 11 6 - 16 mmol/L 08/20/2025 4:14 AM EDT [facility] Total Calcium, Plasma 8.4(L) 8.9 - 10.2 mg/dL 08/20/2025 4:14 AM [facility] Total Protein 5.8(L) 6.3 - 7.9 g/dL 08/20/2025 4:14 AM T [facility] Albumin, Plasma 2.8(L) 3.5 - 5.2 g/dL 08/20/2025 4:14 AM T [facility] AST, Plasma 32 10 - 35 U/L 08/20/2025 4:14 AM T [facility] ALT, Plasma 12 10 - 35 U/L 08/20/2025 4:14 AM T [facility] Alkaline Phosphatase, Plasma 175(H) 46 - 142 U/L 08/20/2025 4:14 AM T [facility] Total Bilirubin, Plasma 1.5(H) 0.2 - 1.1 mg/dL 08/20/2025 4:14 AM EDT [facility] eGFRcr 22.0 mL/min/1.7 3m*2 08/20/2025 4:14 AM EDT [facility] Comment:Reported eGFRcr in m L/min/1.73m2 is based the CKD-EPI 2020 equation that does not use a race coefficient. Blood Venous blood specimen / Unknown Venipuncture / Unknown 08/20/2025 3:26 AM EDT 08/20/2025 3:37 AM EDT Sushma Meza MD LAB BLOOD ORDERABLES Final R esult [facility] [address] [place] [address] * US Abdomen Focused Region Other (08/19/2025 1:12 PM EDT) Only the most recent of2 [...] (ABNORMAL) Ammonia, Plasma (08/19/2025 12:22 PM EDT) Only the most recent of5 resultswithin the time period is included. Ammonia 77(H) 11 - 51 umol/L 08/19/2025 12:55 PM EDT [facility] Blood Venous blood specimen / Unknown Venipuncture / Unknown 08/19/2025 12:22 PM EDT 08/19/2025 12:35 PM EDT Sushma Meza MD LAB BLOOD ORDERABLES Final R esult Performing Organization Address [facility] Co de Phone Number [facility] [address] [place] [address] * Protein, Random, Urine with Creatinine (08/18/2025 4:15 PM EDT) Only the most recent of2 resultswithin the time period is included. Protein, Urine 36 mg/dL 08/18/2025 4:49 PM EDT [facility] Creatinine, Urine 126 mg/dL 08/18/2025 4:49 PM EDT [facility] Protein/Creati nine Ratio 0.3 mg/mg Creat 08/18/2025 4:49 PM EDT [facility] Urine Urine specimen obtained by clean catch procedure / Unknown Non-blood Collection / Unknown 08/18/2025 4:15 PM EDT 08/18/2025 4:23 PM EDT Sushma Meza MD LAB URINE ORDERABLES Final R esult Performing Organization Address City/[facility] Co de Phone Number [facility] [address] [place] [address] * EKG now - STAT (adult) (08/18/2025 6:18 AM EDT) Only the most recent of3 resultswithin the time period is included. EKG DIAGNOSIS CLASS Borderline Abnormal MUSE ECG Ventricular Rate 46 BPM MUSE ECG Atrial Rate 46 BPM MUSE ECG RI Interval 132 ms MUSE ECG QRSD Interval 92 ms MUSE ECG QT Interval 536 ms MUSE ECG QTC Interval 469 ms MUSE ECG P [place] 45 degrees MUSE ECG R [place] -25 degrees MUSE ECG T Wave [place] 13 degrees MUSE ECG Diagnosis Sinus bradycardia MUSE ECG Diagnosis Low voltage QRS MUSE ECG Diagnosis Borderline ECG MUSE ECG Diagnosis MUSE ECG Diagnosis Confirmed by Artemio Arora ([id number]) on 08/18/2025 1:42:50 PM MUSE ECG 08/18/2025 6:18 AM EDT 08/18/2025 1:42 PM EDT us Alvarez Brice MD ECG ORDERABLES Final Resul t Performing Organization Address City/[facility]/ZIP Co de Phone Number MUSE ECG * Osmolality (08/18/2025 6:11 AM EDT) Only the most recent of2 resultswithin the time period is included. Osmolality, Serum 297 280 - 301 mOsm/Kg 08/18/2025 5:06 PM EDT [facility] Blood Venous blood specimen / Unknown Venipuncture / Unknown 08/18/2025 6:11 AM EDT 08/18/2025 6:20 AM EDT us Sushma Meza MD LAB BLOOD ORDERABLES Final R esult Performing Organization Address [facility] Co de Phone Number [facility] [address] [place] [address] * Lipase (08/18/2025 6:11 AM EDT) Only the most recent of2 resultswithin the time period is included. Lipase, Plasma 49 19 - 63 U/L 08/18/2025 6:51 AM EDT [facility] Blood Venous blood specimen / Unknown Venipuncture / Unknown 08/18/2025 6:11 AM EDT 08/18/2025 6:20 AM EDT Alvarez Brice MD LAB BLOOD ORDERABLES Final Result Performing Organization Address [facility] Co de Phone Number [facility] [address] [place] [address] * (ABNORMAL) Blood gas panel, venous (08/18/2025 6:11 AM EDT) Only the most recent of2 resultswithin the time period is included. pH, Venous 7.41 7.32 - 7.43 LAB HEMATOLOGY METHOD 08/18/2025 6:31 AM EDT [facility] pCO2, Venous 35(L) 37 - 52 mmHg LAB HEMATOLOGY METHOD 08/18/2025 6:31 AM EDT [facility] pO2, Venous 25 25 - 40 mmHg LAB HEMATOLOGY METHOD 08/18/2025 6:31 AM EDT [facility] SO2, Measured, Venous 39(L) 65 - 80 % LAB HEMATOLOGY METHOD 08/18/2025 6:31 AM EDT [facility] Base Excess, Venous -2.0 -2.0 - 3.0 mmol/L LAB HEMATOLOGY METHOD 08/18/2025 6:31 AM EDT [facility] Bicarbonate, Calculated, Venous 22 22 - 26 mmol/L LAB HEMATOLOGY METHOD 08/18/2025 6:31 AM EDT [facility] Hematocrit, Whole Blood 27.2(L) 34.0 - 45.0 % LAB HEMATOLOGY METHOD 08/18/2025 6:31 AM EDT [facility] Sodium, Whole Blood 138 136 - 145 mmol/L LAB HEMATOLOGY METHOD 08/18/2025 6:31 AM EDT [facility] Potassium, Whole Blood 3.4(L) 3.6 - 4.9 mmol/L LAB HEMATOLOGY METHOD 08/18/2025 6:31 AM EDT [facility] Chloride, Whole Blood 105 97 - 107 mmol/L LAB HEMATOLOGY METHOD 08/18/2025 6:31 AM EDT [facility] Glucose, Whole Blood 193(H) 74 - 99 mg/dL LAB HEMATOLOGY METHOD 08/18/2025 6:31 AM EDT [facility] Lactate, Venous, Whole Blood 2.1 0.5 - 2.2 mmol/L LAB HEMATOLOGY METHOD 08/18/2025 6:31 AM EDT [facility] Ionized Calcium, Whole Blood 3.9(L) 4.6 - 5.1 mg/dL LAB HEMATOLOGY METHOD 08/18/2025 6:31 AM EDT [facility] Blood Venous blood specimen / Unknown Venipuncture / Unknown 08/18/2025 6:11 AM EDT 08/18/2025 6:27 AM EDT us Alvarez Brice MD LAB BLOOD ORDERABLES Final Result [facility] [address] [place] [address] * XR OUTSIDE IMAGES (08/17/2025 4:41 PM EDT) Only the most recent of2 resultswithin the time period is included. Anatomical Region Laterality Modality Radiographic [place] ging 08/17/2025 4:41 PM EDT us Rowan Castellano DO IMG XR PROCEDURES Edited Result - Final * CT THORACIC OUTSIDE IMAGES (08/17/2025 4:39 PM EDT) Only the most recent of2 resultswithin the time period is included. Anatomical Region Laterality Modality Computed Tomogra phy 08/17/2025 4:39 PM EDT us External Provider IMG CT PROCEDURES Edited Resul t - Final * CT NEURO OUTSIDE IMAGES (08/17/2025 4:36 PM EDT) Anatomical Region Laterality Modality Computed Tomogra phy 08/17/2025 4:36 PM EDT us External Provider IMG CT PROCEDURES Edited Resul t - Final * US Chest (2025 10:08 AM EDT) [...] 08/17/2025 1:04 AM EDT CLINICAL INDICATION: Monika Ordaz is a 64 y.o. 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 Patient presents for thoracentesis. TECHNIQUE: Continuous Loft Operator: ADRI Glasgow Procedure: Limited chest ultrasound completed with small to moderate volume right pleural effusion, lung sliding in percutaneous window. Patient asymptomatic, elected to not complete thoracentesis at this time COMPARISON: Chest x-ray 08/08/2025 Ultrasound guided thoracentesis 08/08/2025. FINDINGS: Small right sided pleural effusion COMPLICATION: No. Procedure Note Mike Orr MD - 08/17/2025 CLINICAL INDICATION: Monika Ordaz is a 64 y.o. 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 Patient presents for thoracentesis. TECHNIQUE: Continuous Loft Operator: ADRI Glasgow Procedure: Limited chest ultrasound completed [...] on 08/17/2025 1:04 AM us Marianna Gordon CLAMSHELL ENGINEER IMG US PROCEDURES Final Resu lt * (ABNORMAL) Body Fluid Cell Count W/O Diff (2025 9:25 AM EDT) Specimen Source, Body Fluid Peritoneal Fluid 2025 2:25 PM EDT [facility] Specimen Type Body Fluid 2025 2:25 PM EDT [facility] Color, Body fluid Yellow LAB HEMATOLOGY METHOD 2025 2:25 PM EDT [facility] Appearance, Body fluid Cloudy(A) LAB HEMATOLOGY METHOD 2025 2:25 PM EDT [facility] Volume, Body fluid 45.0 cc LAB HEMATOLOGY METHOD 2025 2:25 PM EDT [facility] Red Blood Cell Count, Body fluid 4,000 uL LAB HEMATOLOGY METHOD 2025 2:25 PM EDT [facility] Total Nucleated Cell Count, Body fluid 129 uL LAB HEMATOLOGY METHOD 2025 2:25 PM EDT [facility] Fluid Container Specimen received in miscellaneous container LAB HEMATOLOGY METHOD 2025 2:25 PM EDT [facility] Body Fluid Peritoneal fluid / Unknown Non-blood Collection / Unknown 2025 9:25 AM EDT 2025 10:44 AM EDT us Micheal Glasgow CLAMSHELL ENGINEER, DNP LAB BODY FLUIDS AND ST OOLS ORDERABLES Final Result [facility] [address] [place] [address] * Total Protein, Pleural Fluid - Pleural [...] developed and its performance characteristics determined by [facility]. The U.S. Food and Drug Administration has not approved or cleared this test. However, FDA clearance or approval is not currently required for clinical use. The results are not intended to be used as the sole means for clinical diagnosis or patient management decisions. us Fabiana Cunningham MD LAB BODY FLUIDS AND STOOLS ORDE RABLES Final Result [facility] [address] [place] [address] * Lactate Dehydrogenase, Pleural Fluid - Right [...] the following criteria are present: (1) pleural fqvkn-ws-bbkim protein ratio of >0.5, (2) pleural cxqib-ru-jhnui LDH ratio of >0.6, or (3) a pleural fluid LDH activity that is >2/3 the upper limit of a normal serum LDH activity. Light's criteria may misclassify ~25% of transudates as exudates in heart failure. These can be identified by calculating a nhvzo-do-mgfqmxw albumin gradient (>1.2 g/dL) and/or a ldrjz-vb-xpusb protein gradient (>3.1 g/dL). Fabiana Cunningham MD LAB BODY FLUIDS AND STOOLS VINCENT ARGUETABRITTANY Final Result Performing Organization Address City/[facility]/ZIP Co de Phone Number [facility] [address] [place] [address] * Body Fluid Culture and Gram Stain [...] MICROBIOLOGY - GENERAL ORDLoyd CATES Final Result [facility] [address] [place] [address] * LDH - Ascites (07/04/2025 10:08 AM [...] VINCENT CATES Final Result Performing Organization Address [facility]/ZIP Co de Phone Number [facility] [address] [place] [address] * XR Abdomen 1 View (07/03/2025 7:02 [...] Resu lt Performing Organization Address [facility] Co de Phone Number [facility] [address] [place] [address] * Sodium, urine, random (07/02/2025 12:42 PM EDT) Sodium, Urine <20 mmol/L 07/02/2025 1:41 PM EDT [facility] Urine Urine specimen obtained by clean catch procedure / Unknown Non-blood Collection / Unknown 07/02/2025 12:42 PM EDT 07/02/2025 1:01 PM EDT us Fabiana Cunningham MD LAB URINE ORDERABLES Final Resu lt Performing Organization Address [facility] Co de Phone Number [facility] [address] [place] [address] * Osmolality, urine (07/02/2025 12:42 PM EDT) Osmolality, Urine 467 50 - 1,200 mOsm/kg 07/02/2025 4:32 PM EDT [facility] Urine Urine specimen obtained by clean catch procedure / Unknown Non-blood Collection / Unknown 07/02/2025 12:42 PM EDT 07/02/2025 1:01 PM EDT us Fabiana Cunningham MD LAB URINE ORDERABLES Final Resu lt Performing Organization Address [facility] Co de Phone Number [facility] [address] [place] [address] * Creatinine, urine, random (07/02/2025 12:42 PM EDT) Creatinine, Urine 146 mg/dL 07/02/2025 1:41 PM EDT [facility] Urine Urine specimen obtained by clean catch procedure / Unknown Non-blood Collection / Unknown 07/02/2025 12:42 PM EDT 07/02/2025 1:01 PM EDT us Fabiana Cunningham MD LAB URINE ORDERABLES Final Resu lt [facility] [address] [place] [address] * (ABNORMAL) Peripheral Blood Smear (06/30/2025 12:37 AM EDT) WBC Count 2.74(L) 3.70 - 10.30 10*3/uL LAB HEMATOLOGY METHOD 06/30/2025 1:28 AM EDT [facility] RBC Count 2.74(L) 3.90 - 5.20 10*6/uL LAB HEMATOLOGY METHOD 06/30/2025 1:28 AM EDT [facility] HGB 8.4(L) 11.2 - 15.7 g/dL LAB HEMATOLOGY METHOD 06/30/2025 1:28 AM EDT [facility] HCT 24.8(L) 34.0 - 45.0 % LAB HEMATOLOGY METHOD 06/30/2025 1:28 AM EDT [facility] Platelet Count 40(L) 155 - 369 10*3/uL LAB HEMATOLOGY METHOD 06/30/2025 1:28 AM EDT [facility] MCV 91 79 - 98 fL LAB HEMATOLOGY METHOD 06/30/2025 1:28 AM EDT [facility] MCH 30.7 26.0 - 32.0 pg LAB HEMATOLOGY METHOD 06/30/2025 1:28 AM EDT [facility] MCHC 33.9 30.7 - 35.5 g/dL LAB HEMATOLOGY METHOD 06/30/2025 1:28 AM EDT [facility] RDW 15.3(H) 11.5 - 14.5 % LAB HEMATOLOGY METHOD 06/30/2025 1:28 AM EDT [facility] MPV 10.3 8.8 - 12.5 fL LAB HEMATOLOGY METHOD 06/30/2025 1:28 AM EDT [facility] nRBC 0.0 <=0.0 per 100 WBCs LAB HEMATOLOGY METHOD 06/30/2025 1:28 AM EDT [facility] Differential Type Automated LAB HEMATOLOGY METHOD 06/30/2025 1:28 AM EDT [facility] Neutrophils % 54 % LAB [...] LAB HEMATOLOGY METHOD 06/30/2025 1:28 AM EDT [facility] Immature Granulocytes % 0 % LAB HEMATOLOGY METHOD 06/30/2025 1:28 AM EDT [facility] Neutrophils Absolute 1.45(L) 1.60 - 6.10 10*3/uL LAB HEMATOLOGY METHOD 06/30/2025 1:28 AM EDT [facility] Lymphocytes Absolute 0.73(L) 1.20 - 3.90 10*3/uL LAB HEMATOLOGY METHOD 06/30/2025 1:28 AM EDT [facility] Monocytes Absolute 0.45 0.30 - 0.90 10*3/uL LAB HEMATOLOGY METHOD 06/30/2025 1:28 AM EDT [facility] Eosinophils Absolute 0.09 0.00 - 0.50 10*3/uL LAB HEMATOLOGY METHOD 06/30/2025 1:28 AM EDT [facility] Basophils Absolute 0.01 0.00 - 0.10 10*3/uL LAB HEMATOLOGY METHOD 06/30/2025 1:28 AM EDT [facility] Immature Granulocytes Absolute 0.01 0.00 - 0.06 10*3/uL LAB HEMATOLOGY METHOD 06/30/2025 1:28 AM EDT [facility] Blood Venous blood specimen / Unknown Venipuncture / Unknown 06/30/2025 12:37 AM EDT 06/30/2025 12:40 AM EDT Narrative [facility]ALTH[facility] - 06/30/2025 1:28 AM EDT Therapeutic decision making should be based on absolute values, rather than percentages. us Fabiana Cunningham MD LAB PATHOLOGY ORDERABLES Final Result [facility] [address] [place] [id number] * Peripheral blood smear, pathologist interpretation (06/30/2025 12:37 AM EDT) Clinical Diagnosis, Peripheral Smear Pancytopenia LAB HEMATOLOGY METHOD 07/01/2025 12:12 PM EDT [facility] Interpretation , Peripheral Smear Pancytopenia, not morphologically distinct 07/01/2025 12:12 PM EDT [facility] Pathologist Signature, Peripheral Smear 07/01/2025 12:12 PM EDT [facility] Comment:Reviewed by: Stacy King MD LAB CP ASR DISCLAIMER No 07/01/2025 12:12 PM EDT [facility] Blood Venous blood specimen / Unknown Venipuncture / Unknown 06/30/2025 12:37 AM EDT 06/30/2025 12:40 AM EDT Fabiana Cunningham MD LAB PATHOLOGY ORDERABLES Final Result Performing Organization Address City/[facility] Co de Phone Number [facility] [address] [place] [address] * (ABNORMAL) Prealbumin (06/28/2025 3:50 AM EDT) Only the most recent of2 resultswithin the time period is included. Prealbumin, Plasma 5.0(L) 20.0 - 41.0 mg/dL 06/28/2025 1:42 PM EDT [facility] Blood Venous blood specimen / Unknown Venipuncture / Unknown 06/28/2025 3:50 AM EDT 06/28/2025 4:27 AM EDT Chilo Loyola MD LAB BLOOD ORDERABLES Final Result Performing Organization Address City/[facility] Co de Phone Number [facility] [address] [place] [address] * (ABNORMAL) APTT (06/27/2025 2:37 PM EDT) Pathologist [facility] aPTT 42(H) 25 - 35 sec 06/27/2025 3:10 PM EDT [facility] Blood Venous blood specimen / Unknown Venipuncture / Unknown 06/27/2025 2:37 PM EDT 06/27/2025 2:44 PM EDT Chilo Loyola MD LAB BLOOD ORDERABLES Final Result Performing Organization Address City/[facility] Co de Phone Number [facility] [address] [place] [address] * (ABNORMAL) Basic metabolic panel (06/27/2025 2:37 PM EDT) Only the most recent of2 resultswithin the time period is included. Glucose, Plasma 90 74 - 99 mg/dL 06/27/2025 3:10 PM EDT [facility] BUN, Plasma 29(H) 8 - 23 mg/dL 06/27/2025 3:10 PM EDT [facility] Creatinine, Plasma 1.83(H) 0.60 - 1.10 mg/dL 06/27/2025 3:10 PM EDT [facility] BUN/Creatinine Ratio 16 06/27/2025 3:10 PM EDT [facility] Sodium, Plasma 139 136 - 145 mmol/L 06/27/2025 3:10 PM EDT [facility] Potassium, Plasma 3.7 3.6 - 4.9 mmol/L 06/27/2025 3:10 PM EDT [facility] Chloride, Plasma 108(H) 97 - 107 mmol/L 06/27/2025 3:10 PM EDT [facility] CO2, Plasma 19(L) 22 - 29 mmol/L 06/27/2025 3:10 PM EDT [facility] Anion Gap 12 6 - 16 mmol/L 06/27/2025 3:10 PM EDT [facility] Total Calcium, Plasma 8.6(L) 8.9 - 10.2 mg/dL 06/27/2025 3:10 PM EDT [facility] eGFRcr 30.9 mL/min/1.7 3m*2 06/27/2025 3:10 PM EDT [facility] Comment:Reported eGFRcr in m L/min/1.73m2 is based the CKD-EPI 2020 equation that does not use a race coefficient. Blood Venous blood specimen / Unknown Venipuncture / Unknown 06/27/2025 2:37 PM EDT 06/27/2025 2:44 PM EDT us Chilo Loyola MD LAB BLOOD ORDERABLES Final Result [facility] [address] [place] [address] * Albumin - Ascites (06/27/2025 9:16 AM EDT) Only the most recent of2 resultswithin the time period is included. Pathologist [facility] Albumin, Peritoneal Fluid 0.5 g/dL 06/27/2025 2:46 [...] developed and its performance characteristics determined by [facility]. The [place] Food and Drug Administration has not approved or cleared this test; however, FDA clearance or approval is not currently required for clinical use. The results are not intended to be used as the sole means for clinical diagnosis or patient management decisions. Chilo Loyola MD LAB BODY FLUIDS AND STOOLS ORDERABLES Final Result Performing Organization Address City/[facility] Co de Phone Number [facility] [address] [place] [address] * Morphology (06/27/2025 4:03 AM EDT) Only the most recent of2 resultswithin the time period is included. [facility] RBC Morphology Slide Reviewed LAB HEMATOLOGY METHOD 06/27/2025 5:26 AM EDT [facility] Target Cells Present LAB HEMATOLOGY METHOD 06/27/2025 5:26 AM EDT [facility] Blood Venous blood specimen / Unknown Venipuncture / Unknown 06/27/2025 4:03 AM EDT 06/27/2025 4:40 AM EDT Chilo Loyola MD LAB BLOOD ORDERABLES Final Result Performing Organization Address City/[facility] Co de Phone Number [facility] [address] [place] [address] * (ABNORMAL) Cystatin C (06/27/2025 4:03 AM EDT) Only the most recent of2 resultswithin the time period is included. [facility] Cystatin C 2.97(H) 0.61 - 0.95 mg/L 06/27/2025 11:21 AM EDT [facility] Blood Venous blood specimen / Unknown Venipuncture / Unknown 06/27/2025 4:03 AM EDT 06/27/2025 4:40 AM EDT us Chilo Loyola MD LAB BLOOD ORDERABLES Final Result [facility] [address] [place] [address] * (ABNORMAL) Manual Differential (06/25/2025 3:00 PM [...] MD LAB BLOOD ORDERABLES Final Resul t [facility] [address] [place] [address] * CT MSK OUTSIDE IMAGES (06/23/2025 6:38 PM EDT) Anatomical Region Laterality Modality Computed Tomogra phy 06/23/2025 6:38 PM EDT us Kandice Maldonado APRN IMG CT PROCEDURES Final Res ult * US OUTSIDE IMAGES (06/23/2025 5:29 PM EDT) Anatomical Region Laterality Modality Ultrasound 06/23/2025 5:29 PM EDT us Kandice Maldonado APRN IMG US PROCEDURES Final Res ult * Bone Specific Alkaline Phosphatase (06/11/2025 9:24 AM EDT) Bone Specific Alkaline Phosphatase 31.6 ug/L 06/11/2025 10:45 AM EDT [facility] Comment: BSAP (Ostase) Reference Values, Female, age 18 years and up: Premenopausal: 4.5 to 16.9 ug/L Postmenopausal: 7.0 to 22.4 ug/L Blood Venous blood specimen / Unknown Venipuncture / Unknown 06/11/2025 9:24 AM EDT 06/11/2025 9:55 AM EDT us Ar Dominique MD LAB REF LAB BLOOD AND FLUID OR D Final Result [facility] [address] [place] [address] * Pain Management, Quantitative Urine Drug Testing (06/11/2025 9:24 AM EDT) [place] Alprazolam <20 <20 ng/mL 06/13 1:50 PM EDT [facility] [place] Midazolam <20 <20 ng/mL 2024 1:50 PM EDT [facility] [place] Triazolam <20 <20 ng/mL 2024 1:50 PM EDT [facility] Alprazolam <10 <10 ng/mL 06/13/2025 1:50 PM EDT [facility] Aminoclonazepam <20 <20 ng/mL 1:50 PM EDT [facility] Amphetamine <50 <50 ng/mL 06/13/2025 1:50 PM EDT [facility] Benzoylecgonine <50 <50 ng/mL 1:50 PM EDT [facility] Buprenorphine <10 <10 ng/mL 06/13/2025 1:50 PM EDT [facility] Buprenorphine Glucuronide <50 <50 ng/mL 06/13/2025 1:50 PM EDT [facility] Butalbital <50 <50 ng/mL 06/13/2025 1:50 PM EDT [facility] 9 Carboxy THC <10 <10 ng/mL 06/13/2025 1:50 PM EDT [facility] 9 Carboxy THC Glucuronide <25 <25 ng/mL 06/13/2025 1:50 PM EDT [facility] Clonazepam <10 <10 ng/mL 06/13/2025 1:50 PM EDT [facility] Codeine <50 <50 ng/mL 06/13/2025 1:50 PM EDT [facility] Codeine Glucuronide <50 <50 ng/mL 06/13 1:50 PM EDT [facility] Cyclobenzaprine <50 <50 ng/mL 1:50 PM EDT [facility] Desmethyl Tramadol <50 <50 ng/mL 2024 1:50 PM EDT [facility] Diazepam <10 <10 ng/mL 06/13/2025 1:50 PM EDT [facility] EDDP - Methadone Metabolite <50 <50 ng/mL 06/13/2025 1:50 PM EDT [facility] Fentanyl <1 <1 ng/mL 06/13/2025 1:50 PM EDT [facility] Hydrocodone <50 <50 ng/mL 06/13/2025 1:50 PM EDT [facility] Hydromorphone <50 <50 ng/mL 06/13/2025 1:50 PM EDT [facility] Hydromorphone Glucuronide <50 <50 ng/mL 06/13/2025 1:50 PM EDT [facility] Lorazepam <20 <20 ng/mL 06/13/2025 1:50 PM EDT [facility] Lorazepam Glucuronide <50 <50 ng/mL 06/13/2025 1:50 PM EDT [facility] MDA <50 <50 ng/mL 06/13/2025 1:50 PM EDT [facility] MDMA <50 <50 ng/mL 06/13/2025 1:50 PM EDT [facility] Meperidine <50 <50 ng/mL 06/13/2025 1:50 PM EDT [facility] Methadone <50 <50 ng/mL 06/13/2025 1:50 PM EDT [facility] Methamphetamine <50 <50 ng/mL 1:50 PM EDT [facility] Methylphenidate <50 <50 ng/mL 1:50 PM EDT [facility] 6 Monoacetyl morphine <10 <10 ng/mL 06/13/2025 1:50 PM EDT [facility] Morphine <50 <50 ng/mL 06/13/2025 1:50 PM EDT [facility] Morphine Glucuronide <50 <50 ng/mL 05/22 1:50 PM EDT [facility] Naloxone <50 <50 ng/mL 06/13/2025 1:50 PM EDT [facility] Naloxone Glucuronide <50 <50 ng/mL 05/22 1:50 PM EDT [facility] Norbuprenorphine <10 <10 ng/mL 06/13/20 1:50 PM EDT [facility] Norbuprenorphine Glucuronide <50 <50 ng/mL 06/13/2025 1:50 PM EDT [facility] Nordiazepam <20 <20 ng/mL 06/13/2025 1:50 PM EDT [facility] Norfentanyl <2 <2 ng/mL 06/13/2025 1:50 PM EDT [facility] Normeperidine <50 <50 ng/mL 06/13/2025 1:50 PM EDT [facility] PCP Quant, Ur <50 <50 ng/mL 06/13/2025 1:50 PM EDT [facility] Phenobarbital <50 <50 ng/mL 06/13/2025 1:50 PM EDT [facility] Oxazepam <20 <20 ng/mL 06/13/2025 1:50 PM EDT [facility] Oxazepam Glucuronide <50 <50 ng/mL 05/22 1:50 PM EDT [facility] Oxycodone <50 <50 ng/mL 06/13/2025 1:50 PM EDT [facility] Oxymorphone <50 <50 ng/mL 06/13/2025 1:50 PM EDT [facility] Oxymorphone Glucuronide <50 <50 ng/mL 06/13/2025 1:50 PM EDT [facility] Secobarbital <50 <50 ng/mL 06/13/2025 1:50 PM EDT [facility] Tramadol <50 <50 ng/mL 06/13/2025 1:50 PM EDT [facility] Temazepam <20 <20 ng/mL 06/13/2025 1:50 PM EDT [facility] Temazepam Glucuronide <50 <50 ng/mL 06/13/2025 1:50 PM EDT [facility] Urine Urine specimen obtained by clean catch procedure / Unknown Non-blood Collection / Unknown 06/11/2025 9:24 AM EDT 06/11/2025 9:57 AM EDT Narrative [facility] - 06/13/2025 1:50 PM [...] laboratory. Test performed by LC-MS/MS at the [facility] Chemistry Laboratory. This test was developed and its performance characteristics determined by [facility]. It has not been cleared or approved by the FDA. The laboratory is regulated under CLIA as qualified to perform high-complexity testing. This test is used for clinical purposes. us Gerson Arora MD LAB URINE ORDERABLES Final Resul t [facility] [address] [place] [address] * C-Telopeptide (06/11/2025 9:24 AM EDT) C Telopeptide Beta Cross Linked Serum Result 1083 pg/mL 06/13/2025 1:13 AM EDT [facility] ([facility] Blood Venous blood specimen / Unknown Venipuncture / Unknown 06/11/2025 9:24 AM EDT 06/11/2025 9:54 AM EDT Narrative [facility] ([facility]) - 06/13/2025 1:13 AM EDT Premenopausal Females: 136-689 pg/mL Postmenopausal Females: 177-1015 pg/mL REFERENCE INTERVAL: C-Telopeptide, [id number], Serum Access complete set of age- and/or gender-specific reference intervals for this test in the [facility] Test Directory ([employer]). Performed By: [facility] [address] [place] [address] [employer] Supervisor: Tank Orona MD, PhD CLIA Number: [id number] Ar Dominique MD LAB BLOOD ORDERABLES Final Res ult Performing Organization Address City/[facility]/ZIP Co de Phone Number [facility] [address] [place] [address] * Nicotine Cotinine Metabolite (06/11/2025 9:24 AM EDT) NICOTINE <5 <5 ng/mL 06/13/2025 6:2 3 PM EDT [facility] Cotinine <5 <5 ng/mL 06/13/2025 6:2 3 PM EDT [facility] Blood Venous blood specimen / Unknown Venipuncture / Unknown 06/11/2025 9:24 AM EDT 06/11/2025 9:55 AM EDT Narrative [facility] - 06/13/2025 6:23 PM EDT Testing performed by LC-MS/MS at the [facility] Special Chemistry/Toxicology Laboratory. This test was developed and its performance characteristics determined by [facility]. This assay has not been cleared by the FDA. The laboratory is regulated under CLIA as qualified to perform high-complexity testing. This test is used for clinical purposes. Gerson Arora MD LAB BLOOD ORDERABLES Final Resul t [facility] [address] [place] [address] * Osteocalcin by ECIA (06/11/2025 9:24 AM EDT) OSTEOCALCIN BY ECIA 28 8 - 36 ng/mL 06/13/2025 1:13 AM EDT [facility] ([facility]) Blood Venous blood specimen / Unknown Venipuncture / Unknown 06/11/2025 9:24 AM EDT 06/11/2025 10:00 AM EDT Narrative [facility] LUCILLE MENDOZA) - 06/13/2025 1:13 AM EDT INTERPRETIVE INFORMATION: Osteocalcin by ECIA In patients with renal failure, the osteocalcin result may be directly elevated, due to impaired clearance, and/or indirectly elevated due to renal osteodystrophy. Access complete set of age- and/or gender-specific reference intervals for this test in the [facility] Test Directory ([employer]). Performed By: [facility] [address] [place] [address] [employer] Supervisor: Tank Orona MD, PhD CLIA Number: [id number] Ar Dominique MD LAB BLOOD ORDERABLES Final Res ult Performing Organization Address City/[facility] Co de Phone Number [facility] [address] [place] [address] * Alcohol Urine (06/11/2025 9:24 AM EDT) Alcohol Urine Negative Negative 06/11/2025 2:20 PM EDT [facility] Urine Urine specimen obtained by clean catch procedure / Unknown Non-blood Collection / Unknown 06/11/2025 9:24 AM EDT 06/11/2025 9:57 AM EDT Narrative [facility] - 06/11/2025 2:20 PM EDT The correlation between urine and serum ethanol concentration is highly variable. Test performed by Gas Chromatography at the [facility] Special Chemistry Laboratory. This test was developed and its performance characteristics determined by [facility]. It has not been cleared or approved by the FDA.The laboratory is regulated under CLIA as qualified to perform high-complexity testing. This test is used for clinical purposes only. us Gerson Arora MD LAB URINE ORDERABLES Final Resul t [facility] [address] [place] [address] * (ABNORMAL) Comprehensive Urine Drug Screening, Qualitative Assay, >= 27 Drug Classes (59:24 AM EDT) [facility] Signature Acetaminophen Negative Negative 06/11/2025 4:37 PM EDT [facility] Alprazolam Negative Negative 06/11/2025 4:37 PM EDT [facility] Amantadine Negative Negative 06/11/2025 4:37 PM EDT [facility] Amitriptyline Negative Negative 06/11/2025 4:37 PM EDT [facility] Amphetamine Negative Negative 06/11/2025 4:37 PM EDT [facility] Atenolol Negative Negative 06/11/2025 4:37 PM EDT [facility] Benzoylecgonine Negative Negative 4:37 PM EDT [facility] Bisoprolol Negative Negative 06/11/2025 4:37 PM EDT [facility] Bupropion Negative Negative 06/11/2025 4:37 PM EDT [facility] Butalbital Negative Negative 06/11/2025 4:37 PM EDT [facility] Carbamazepine Negative Negative 06/11/2025 4:37 PM EDT [facility] Carisoprodol Negative Negative 06/11/2025 4:37 PM EDT [facility] Chlorpheniramine Negative Negative 06/11/20 4:37 PM EDT [facility] Citalopram Negative Negative 06/11/2025 4:37 PM EDT [facility] Clindamycin Negative Negative 06/11/2025 4:37 PM EDT [facility] Clonidine Negative Negative 06/11/2025 4:37 PM EDT [facility] Clopidogrel / Ticlopidine Negative Negative 06/11/2025 4:37 PM EDT [facility] Cocaethylene Negative Negative 06/11/2025 4:37 PM EDT [facility] Cocaine Negative Negative 06/11/2025 4:37 PM EDT [facility] Codeine Negative Negative 06/11/2025 4:37 PM EDT [facility] Cyclobenzaprine Negative Negative 4:37 PM EDT [facility] Desvenlafaxine Negative Negative 06/11/2025 4:37 PM EDT [facility] Dextromethorphan Negative Negative 06/11/20 4:37 PM EDT [facility] Diazepam Negative Negative 06/11/2025 4:37 PM EDT [facility] Diltiazem Negative Negative 06/11/2025 4:37 PM EDT [facility] Diphenhydramine Negative Negative 4:37 PM EDT [facility] Doxepine Negative Negative 06/11/2025 4:37 PM EDT [facility] Doxylamine Negative Negative 06/11/2025 4:37 PM EDT [facility] EDDP-Methadone metabolite Negative Negative 06/11/2025 4:37 PM EDT [facility] Fentanyl Negative Negative 06/11/2025 4:37 PM EDT [facility] Fluconazole Negative Negative 06/11/2025 4:37 PM EDT [facility] Fluoxetine Negative Negative 06/11/2025 4:37 PM EDT [facility] Guaifenesin Negative Negative 06/11/2025 4:37 PM EDT [facility] Haloperidol Negative Negative 06/11/2025 4:37 PM EDT [facility] Heroin/6-SANA Negative Negative 06/11/2025 4:37 PM EDT [facility] Hydrocodone Negative Negative 06/11/2025 4:37 PM EDT [facility] Hydroxyzine / Cetirizine metabolite Negative Negative 06/11/2025 4:37 PM EDT [facility] Ibuprofen Negative Negative 06/11/2025 4:37 PM EDT [facility] Imipramine Negative Negative 06/11/2025 4:37 PM EDT [facility] Ketamine Negative Negative 06/11/2025 4:37 PM EDT [facility] Labetolol Negative Negative 06/11/2025 4:37 PM EDT [facility] Lamotrigine Negative Negative 06/11/2025 4:37 PM EDT [facility] Levetiracetam Negative Negative 06/11/2025 4:37 PM EDT [facility] Lidocaine Positive(A) Negative 06/11/2025 4:37 PM EDT [facility] MDA Negative Negative 06/11/2025 4:37 PM EDT [facility] MDMA Negative Negative 06/11/2025 4:37 PM EDT [facility] Memantine Negative Negative 06/11/2025 4:37 PM EDT [facility] Meperidine Negative Negative 06/11/2025 4:37 PM EDT [facility] Meprobamate Negative Negative 06/11/2025 4:37 PM EDT [facility] Metaxalone Negative Negative 06/11/2025 4:37 PM EDT [facility] Methamphetamine Negative Negative 4:37 PM EDT [facility] Methocarbamol Negative Negative 06/11/2025 4:37 PM EDT [facility] Methylecgonine Negative Negative 06/11/2025 4:37 PM EDT [facility] Metoclopramide Negative Negative 06/11/2025 4:37 PM EDT [facility] Metoprolol Negative Negative 06/11/2025 4:37 PM EDT [facility] Metronidazole Negative Negative 06/11/2025 4:37 PM EDT [facility] Midazolam Negative Negative 06/11/2025 4:37 PM EDT [facility] Midazolam Metabolite Negative Negative 06/11/2025 4:37 PM EDT [facility] Mirtazapine Negative Negative 06/11/2025 4:37 PM EDT [facility] Misc Test Result Negative Negative 06/11/20 4:37 PM EDT [facility] Naproxen Negative Negative 06/11/2025 4:37 PM EDT [facility] Nefazodone Negative Negative 06/11/2025 4:37 PM EDT [facility] Norfentanyl Negative Negative 06/11/2025 4:37 PM EDT [facility] Nortriptyline Negative Negative 06/11/2025 4:37 PM EDT [facility] Ordanstron Negative Negative 06/11/2025 4:37 PM EDT [facility] Oxcarbazepine Negative Negative 06/11/2025 4:37 PM EDT [facility] Oxycodone Negative Negative 06/11/2025 4:37 PM EDT [facility] Paroxethine Negative Negative 06/11/2025 4:37 PM EDT [facility] Phenobarbital Negative Negative 06/11/2025 4:37 PM EDT [facility] Phentermine Negative Negative 06/11/2025 4:37 PM EDT [facility] Phenytoin Negative Negative 06/11/2025 4:37 PM EDT [facility] Primidone Negative Negative 06/11/2025 4:37 PM EDT [facility] Promethazine Negative Negative 06/11/2025 4:37 PM EDT [facility] Propofol Negative Negative 06/11/2025 4:37 PM EDT [facility] Propranolol Negative Negative 06/11/2025 4:37 PM EDT [facility] Quetiapine Negative Negative 06/11/2025 4:37 PM EDT [facility] Quinine Negative Negative 06/11/2025 4:37 PM EDT [facility] Rantidine Negative Negative 06/11/2025 4:37 PM EDT [facility] Sertraline Negative Negative 06/11/2025 4:37 PM EDT [facility] Spironolactone Negative Negative 06/11/2025 4:37 PM EDT [facility] Tizanidine Negative Negative 06/11/2025 4:37 PM EDT [facility] Topiramate Negative Negative 06/11/2025 4:37 PM EDT [facility] Tramadol Negative Negative 06/11/2025 4:37 PM EDT [facility] Trazadone/ Trazadone metabolite Negative Negative 06/11/2025 4:37 PM EDT [facility] Trimethoprim Negative Negative 06/11/2025 4:37 PM EDT [facility] Valproic Acid Negative Negative 06/11/2025 4:37 PM EDT [facility] Venlafaxine Negative Negative 06/11/2025 4:37 PM EDT [facility] Verapamil Negative Negative 06/11/2025 4:37 PM EDT [facility] Zolpidem Negative Negative 06/11/2025 4:37 PM EDT [facility] Xylazine Negative Negative 06/11/2025 4:37 PM EDT [facility] Urine Urine specimen obtained by clean catch procedure / Unknown Non-blood Collection / Unknown 06/11/2025 9:24 AM EDT 06/11/2025 9:56 AM EDT us Gerson Arora MD LAB URINE ORDERABLES Final Resul t [facility] [address] [place] [address] * (ABNORMAL) CBC w/o differential (06/11/2025 9:24 AM EDT) WBC Count 4.49 3.70 - 10.30 10*3/uL LAB HEMATOLOGY METHOD 06/11/2025 10:12 AM EDT [facility] RBC Count 3.17(L) 3.90 - 5.20 10*6/uL LAB HEMATOLOGY METHOD 06/11/2025 10:12 AM EDT [facility] HGB 10.0(L) 11.2 - 15.7 g/dL LAB HEMATOLOGY METHOD 06/11/2025 10:12 AM EDT [facility] HCT 31.0(L) 34.0 - 45.0 % LAB HEMATOLOGY METHOD 06/11/2025 10:12 AM EDT [facility] Platelet Count 68(L) 155 - 369 10*3/uL LAB HEMATOLOGY METHOD 06/11/2025 10:12 AM EDT [facility] MCV 98 79 - 98 fL LAB HEMATOLOGY METHOD 06/11/2025 10:12 AM EDT [facility] MCH 31.5 26.0 - 32.0 pg LAB HEMATOLOGY METHOD 06/11/2025 10:12 AM EDT [facility] MCHC 32.3 30.7 - 35.5 g/dL LAB HEMATOLOGY METHOD 06/11/2025 10:12 AM EDT [facility] RDW 17.3(H) 11.5 - 14.5 % LAB HEMATOLOGY METHOD 06/11/2025 10:12 AM EDT [facility] MPV 10.1 8.8 - 12.5 fL LAB HEMATOLOGY METHOD 06/11/2025 10:12 AM EDT [facility] nRBC 0.0 <=0.0 per 100 WBCs LAB HEMATOLOGY METHOD 06/11/2025 10:12 AM EDT [facility] Blood Venous blood specimen / Unknown Venipuncture / Unknown 06/11/2025 9:24 AM EDT 06/11/2025 9:56 AM EDT Gerson Arora MD LAB BLOOD ORDERABLES Final Resul t Performing Organization Address City/[facility]/ZIP Co de Phone Number [facility] [address] [place] [address] * (ABNORMAL) Iron, Plasma (06/05/2025 3:52 PM EDT) Iron, Plasma 165(H) 30 - 160 ug/dL 06/05/2025 6:41 PM EDT [facility] Blood Venous blood specimen / Unknown Venipuncture / Unknown 06/05/2025 3:52 PM EDT 06/05/2025 3:52 PM EDT Alvarez Ordaz MD LAB BLOOD ORDERABLES Final Res ult Performing Organization Address [facility] [place] [address] * (ABNORMAL) Ferritin, Serum (06/05/2025 3:52 PM EDT) Ferritin, Serum 280(H) 13 - 150 ng/mL 06/05/2025 6:53 PM EDT [facility] Blood Venous blood specimen / Unknown Venipuncture / Unknown 06/05/2025 3:52 PM EDT 06/05/2025 3:52 PM EDT Alvarez Ordaz MD LAB BLOOD ORDERABLES Final Res ult Performing Organization Address [facility] [place] [address] * (ABNORMAL) Conjugated Bilirubin, Plasma (06/05/2025 3:52 PM EDT) Direct Bilirubin, Plasma 1.5(H) <=0.3 mg/dL 06/05/2025 6:41 PM EDT [facility] Blood Venous blood specimen / Unknown Venipuncture / Unknown 06/05/2025 3:52 PM EDT 06/05/2025 3:52 PM EDT us Alvarez Ordaz MD LAB BLOOD ORDERABLES Final Res ult Performing Organization Address [facility] [place] [address] * Urine Subramanian Panel (05/31/2025 6:43 PM EDT) Only the most recent of2 resultswithin the time period is included. Extra Reflex urine culture not indicated 05/31/2025 9:01 PM EDT [facility] Urine Urine specimen obtained by clean catch procedure / Unknown Non-blood Collection / Unknown 05/31/2025 6:43 PM EDT 05/31/2025 7:14 PM EDT us Irina Campos MD LAB URINE ORDERABLES Final Re sult Performing Organization Address [facility] de Phone Number [facility] [place] [address] * Urinalysis Microscopic Examination (05/31/2025 6:43 PM EDT) Only the most recent of2 resultswithin the time period is included. Urine Urine specimen obtained by clean catch procedure / Unknown Non-blood Collection / Unknown 05/31/2025 6:43 PM EDT 05/31/2025 6:46 PM EDT us Irina Campos MD LAB URINE ORDERABLES Final Re sult Performing Organization Address [facility] [place] [address] * (ABNORMAL) Urinalysis with reflex microscopic (Culture NOT Included) (05/31/2025 6:43 PM EDT) Only the most recent of2 resultswithin the time period is included. Color, Urine Dark Yellow LAB URINALYSIS - AUTOMATED METHOD 05/31/2025 7:27 PM EDT [facility] Clarity, Urine Clear LAB URINALYSIS - AUTOMATED METHOD 05/31/2025 7:27 PM EDT [facility] Spec [place], Urine 1.029 1.005 - 1.030 LAB URINALYSIS - AUTOMATED METHOD 05/31/2025 7:27 PM EDT [facility] pH, Urine <=5.0(L) 5.0 - 8.0 LAB URINALYSIS - AUTOMATED METHOD 05/31/2025 7:27 PM EDT [facility] Protein, Urine Trace(A) Negative mg/dL LAB URINALYSIS - AUTOMATED METHOD 05/31/2025 7:27 PM EDT [facility] Glucose, Urine Negative Negative mg/dL LAB URINALYSIS - AUTOMATED METHOD 05/31/2025 7:27 PM EDT [facility] Ketones, Urine Trace(A) Negative mg/dL LAB URINALYSIS - AUTOMATED METHOD 05/31/2025 7:27 PM EDT [facility] Blood, Urine Small(A) Negative LAB URINALYSIS - AUTOMATED METHOD 05/31/2025 7:27 PM EDT [facility] Bilirubin, Urine Small(A) Negative LAB URINALYSIS - AUTOMATED METHOD 05/31/2025 7:27 PM EDT [facility] Urobilinogen, Urine 1.0 0.2 to 1.0 mg/dL LAB URINALYSIS - AUTOMATED METHOD 05/31/2025 7:27 PM EDT [facility] Leukocytes, Urine Trace(A) Negative LAB URINALYSIS - AUTOMATED METHOD 05/31/2025 7:27 PM EDT [facility] Nitrite, Urine Negative Negative LAB URINALYSIS - AUTOMATED METHOD 05/31/2025 7:27 PM EDT [facility] RBC, Urine 4 - 10(A) 0 to 3 /HPF LAB URINALYSIS - AUTOMATED METHOD 05/31/2025 7:27 PM EDT [facility] Comment:This result was prev iously suppressed from the chart. WBC, Urine 0 - 5 0 to 5 /HPF LAB URINALYSIS - AUTOMATED METHOD 05/31/2025 7:27 PM EDT [facility] Comment:This result was prev iously suppressed from the chart. Squamous Epithelial Cells 3 - 5 0 to 5 /HPF LAB URINALYSIS - AUTOMATED METHOD 05/31/2025 7:27 PM EDT [facility] Comment:This result was prev iously suppressed from the chart. Hyaline Casts 3 - 5 0 to 5 /LPF LAB URINALYSIS - AUTOMATED METHOD 05/31/2025 7:27 PM EDT [facility] Comment:This result was prev iously suppressed from the chart. Bacteria, Urine Negative Negative LAB URINALYSIS - AUTOMATED METHOD 05/31/2025 7:27 PM EDT [facility] Comment:This result was prev iously suppressed from the chart. Urine Urine specimen obtained by clean catch procedure / Unknown Non-blood Collection / Unknown 05/31/2025 6:43 PM EDT 05/31/2025 6:46 PM EDT us Irina Campos MD LAB URINE ORDERABLES Final Re sult [facility] [address] [place] [address] * (ABNORMAL) Insulin, random (05/30/2025 9:59 AM EDT) Insulin 32.7(H) 3.0 - 16.0 uU/mL 05/30/2025 12:00 PM EDT [facility] Blood Venous blood specimen / Unknown Venipuncture / Unknown 05/30/2025 9:59 AM EDT 05/30/2025 10:16 AM EDT us Enmanuel Wetzel MD LAB BLOOD ORDERABLES Final Resu lt [facility] [address] [place] [address] * (ABNORMAL) Hemoglobin A1c (05/23/2025 9:27 AM EDT) Hemoglobin A1c 7.3(H) <5.7 % 05/23/2025 11:03 AM EDT [facility] Blood Venous blood specimen / Unknown Venipuncture / Unknown 05/23/2025 9:27 AM EDT 05/23/2025 9:45 AM EDT Narrative [facility] - 05/23/2025 11:03 AM EDT HA1C Interpretive Data: Diagnosis of Diabetes: Diabetic > or = 6.5% Pre-diabetic 5.7 to 6.4% Non-diabetic < or = 5.6% Glycemic Targets for Type I and Type II Diabetics: Non- Adults <7.0% Adults <6.0% Children and Adolescents <7.5% Source: [place] [employer]. Standards of medical care in diabetes,2017. Diabetes Care.2017:40 (suppl 1):S1-S135. us Enmanuel Wetzel MD LAB BLOOD ORDERABLES Final Resu lt [facility] [address] [place] [address] * Dexa Bone Density (11/07/2024 9:09 AM [...] forearm, right forearm was performed using a [employer] Horizon A Dual-energy X-ray Absorptiometry (DXA) scanner [...] left forearm, right forearm wasperformed using a [employer] Horizon A Dual-energy X-ray Absorptiometry (DXA)scanner (software [...] Brayden Hoffman MD on 11/07/2024 9:34 AM us Gerson Arora MD [facility] DXA PROCEDURES Final Result * HIV 1 & 2 Antibody/Antigen Screen (10/22/2024 11:44 AM EST) Pathologist [facility] HIV 1 & 2 Antibody/Antigen Screen Non Reactive Non Reactive 10/22/2024 1:15 PM EST [facility] Comment:Screening for HIV 1 & 2 antibodies, and P24 antigen is NONREACTIVE. No confirmatory testing is required. Blood Venous blood specimen / Unknown Venipuncture / Unknown 10/22/2024 11:44 AM EST 10/22/2024 12:30 PM EST us Yeni Lebron APRN, ANGELLA LAB BLOOD ORDERABLES Final Result Performing Organization Address [facility]/ZIP Co de Phone Number [facility] [address] [place] [address] * Hepatitis C Antibody (10/22/2024 11:44 AM EST) Hepatitis C Antibody Negative Negative 10/22/2024 1:00 PM EST [facility] Blood Venous blood specimen / Unknown Venipuncture / Unknown 10/22/2024 11:44 AM EST 10/22/2024 12:17 PM EST Yeni Lebron APRN, DNP LAB BLOOD ORDERABLES Final Result Performing Organization Address [facility] Co de Phone Number [facility] [address] [place] [address] * Colonoscopy External Result (01/14/2023) Anatomical Region Laterality Modality Endoscopy Narrative 01/14/2023 Ordered by an unspecified provider. us External Provider GI PROCEDURE ORDERABLES Final Result * Cytology (04/12/2003 12:00 AM EDT) 04/12/2003 04/16/2003 Narrative SUNQUEST - 04/26/2003 7:51 AM EDT [facility] MR #: [id number] [facility] [place]A [place], [place] [address] 1960 (Age: 42) FW Collect Date: 04/12/2003 00:00 Receipt Date: 04/16/2003 00:00 Page 1 DEPARTMENT OF PATHOLOGY AND LABORATORY MEDICINE CYTOPATHOLOGY REPORT Email: [email or web address] ATTENDING MD/Practitioner: Rosaline Cooper MD Service: PAT [...] results is suggested (please call Microbiology at [phone] for results). CLINICAL INFORMATION: Menstrual History: Cyclic Date of Last Menstrual Period: 11/23 Contraceptive History: control pills Other Clinical Conditions: Per computer, patient has a history of previous abnormal pap SPECIMEN DESCRIPTION: A: THIN PREP (CERVICAL/VAGINAL) THIN PREP PROCESS CELLULAR ENHANCEMENT ICD: 795.00 ABNORMAL GLANDULAR PAPANICOLAOU SMEAR OF CERVIX F: A; THIN SCRN [id number], THIN SCRN 72435 <CR>, [place] [address] SNOMED CODES: A; [id number] In cases where a pathologist has signed out the report, the service has been rendered in part by a resident. The signing pathologist has performed and is responsible for the reported pathologic evaluation. Historical Provider LAB PATHOLOGY ORDERABLES Fin al Result SUNQUEST from Last 3 Months or Most Recently Relevant to Health Maintenance [place] Advance Directives Documents on File Type Date Recorded Patient Mail Distributor Expl anation Advance Directives and Livin g Will 07/10/2025 1:22 PM Advance Directives and Livin g Will 07/08/2025 2:22 PM * DNR - Ok to intubate (Latest Code Status on File) Date Activated Date Inactivated Comments 08/18/2025 12:54 PM 08/20/2025 5:15 PM Question Answer Comments DNR determined on/before admission date? Yes I have reviewed the capacity from the link above and, if needed, have updated to appropriate status: Yes * DNR - Ok to intubate Date Activated Date Inactivated Comments 07/08/2025 2:16 [...] Healthcare Agent Relationshi p Communication Irvin Ordaz Pending Sale To [facility] Health Care Agent Lj Bernal Sister First Alternate Health Care Agent Karime Singletary [facility] Care Teams Storage Receipt Poster Relationship Specialty Start Date End Date Alvarez Ordaz MD [address] [place] [address] PCP - General Family Medicine 12/07/24 Lea Fernando [address] [facility] [address] [place] [address] Paint Maker Endocrinology 08/29/24 Rachel Ray, CLAMSHE[place] ENGINEER [address] [facility] [address] [place] [address] Nurse Practitioner Gastroenterology 09/24/24 Tamera Isabel LPN VALUE-BASED TRANSFORMATION PROGRAM Licensed Practical Nurse 05/29/25 Shaniqua Trevino LPN TCM Nurse 08/21/25
--- OUTSIDE RECORDS SUMMARY | 2025-08-25 15:19 | XMS_ITS | Encounter Summary ---
Author Organization [facility] Address [address] [place] [address] Care Team Providers Care Infrastructure Tech Name Role Phone NaseemiVvTor, Lea Clarke Unavailable [phone] Rachel Ray SOFTWARE CONSULTANT Unavailable [phone] Alvarez Zimmer MD Primary Care Provider [phone] Tamera Isabel DIRECTOR RISK Unavailable Unavailabl e Shaniqua Trevino LPN Unavailable Unavailable Reason for Visit * Reason Comments TCM Encounter Details Date Type Department Care Team (Late st Contact Info) Description 08/21/2025 Patient Outreach [facility] [address] [facility], [address] [place] [address] Shaniqua Trevino LPN TCM Social History Tobacco Use Types [...] do you attend [facility] or worship services? Patient unable to answer 01/10/2025 Do you belong to any clubs o r organizations such as catholic groups, unions, [employer] or athletic groups, or school groups? Patient [...] more drinks on one occasion? Never 06/25/2025 [facility] [...] in a skilled nursing (including now)? No 08/19/2025 [facility] Utilities Answer Date Recorded In [...] drink first t kennedy in the morning (EYE-METHODS TIME ANALYST) to steady your nerves or to [...] encounter Miscellaneous Notes * Progress Notes - Shaniqua Trevino LPN - 08/21/2025 9:54 AM EDT Admit Date: 08/18/2025 Discharge Date: 08/20/2025 Hospital Service: [facility] Discharge Diagnosis: Hepatic encephalopathy 08/21/2025 TCM call # 1 Patient Reached: Yes Outcome: Spoke with nurse, Montse, at [facility], states that patient will be transported to upcoming [facility] appointment by family. Confirmed by nurse Montse with family who was present at nursing facility visiting with patient today. Action: N/A Medication changes: No medication changes were made, and no new medications ordered. [facility] appointment: 09/03/2025 @ 0840 with Lillie Pritchard MD Items to address at [facility]: Per Discharge Summary: TCM Follow-up: Issues to discuss at follow up visit: -Ensure she is continuing to take lactulose TID -Check Cr to ensure CARLOTTA resolved to baseline -Ensure staying on 2 L fluid restriction per day. documented in this encounter Plan of Treatment Upcoming Encounters Date Type Department Care Team (Late st Contact Info) Description 08/26/2025 1:00 PM EDT Office Visit [facility] Endocrinology [address] [place] [phone] Miranda Hobson, SOFTWARE CONSULTANT [address] [facility] [address] [place] [phone] 08/29/2025 10:00 AM EDT Appointment [facility] [address] [place] [id number] 08/29/2025 11:00 AM EDT Appointment [facility] [address] [place] [address] 09/03/2025 8:40 AM EDT Office Visit [facility] [address] [place] [address] Lillie Pritchard MD [address] [place] [id number] 09/05/2025 10:00 AM EDT Appointment [facility] [address] [place] [address] 09/05/2025 11:00 AM EDT Appointment [facility] [address] [place] [address] 09/17/2025 9:45 AM EDT Clinical Support [facility] [place] [address] [address] 09/17/2025 10:30 AM EDT Social Work [facility] [place] [address] [address] Lea Reilly, PAVING PLANT OPERATORAdell, [place] [id number] 09/17/2025 11:20 AM EDT Office Visit [facility] [address] [place] [address] Octavia Herrera, MARIA GUADALUPE [address] [place] [address] documented as of this encounter [...] documented as of this encounter Care Teams Infrastructure Tech Relationship Specialty Start Date End Date Alvarez Zimmer MD [address] [place] [address] PCP - General Family Medicine 12/07/24 Lea Fernando [address] [facility] [address] [place] [address] Child Monitor Endocrinology 08/29/24 Rachel Ray APRN [address] [facility] [address] [place] [address] Nurse Practitioner Gastroenterology 09/24/24 Tamera Isabel LPN VALUE-BASED TRANSFORMATION PROGRAM Licensed Practical Nurse 05/29/25 Shaniqua Trevino LPN TCM Nurse 08/21/25 documented as of this encounter
--- OUTSIDE RECORDS SUMMARY | 2025-08-25 15:19 | XMS_ITS | Encounter Summary ---
Author Organization [employer] ([place], [place], [place], [place]) Address [address] [place] [address] Care Team Providers Care Apartment Hotel Manager Name Role Phone Taina Lyles ADRI Primary Care Provider [phone] Encounter Details Date Type Department Care Team (Late st Contact Info) Description 07/01/2021 Transcribed Document [facility] [place] Medicine [address] [place] [address] ProviderWilliam MD [address], [place] [address] Social History Tobacco Use Types Packs/Day Years [...] : 3 - Urgent Tracking Group : [facility] LANG WOOD RN [...] Problems(Active) ADD (attention deficit disorder) (SNOMED CT :7357406384 ) Name of Problem: ADD (attention deficit disorder) ; Recorder: AZALEA ALBRIGHT RN; Confirmation: Confirmed ; Classification: Patient Stated ; Code: 8299847689 ; Contributor System: [employer] ; Last Updated: 01/11/2017 14:23 EST ; Life Cycle Date: 01/11/2017 ; Life Cycle Status: Active ; Vocabulary: SNOMED CT Anxiety (SNOMED CT :0930327107 ) Name of Problem: Anxiety ; Recorder: AZALEA ALBRIGHT RN; Confirmation: Confirmed ; Classification: Patient Stated ; Code: 7481953938 ; Contributor System: [employer] ; Last Updated: 01/11/2017 14:22 EST ; Life Cycle Date: 01/11/2017 ; Life Cycle Status: Active ; Vocabulary: SNOMED CT Arthritis (SNOMED CT :4493513 ) Name of Problem: Arthritis ; Recorder: LANNY BELLO RN; Confirmation: Confirmed ; Classification: Medical ; Code: 9697286 ; Contributor System: [employer] ; Last Updated: 09/11/2015 14:10 EDT ; Life Cycle Date: 09/11/2015 ; Life Cycle Status: Active ; Vocabulary: SNOMED CT bilateral knee pain (SNOMED CT :42581134 ) Name of Problem: bilateral knee pain ; Recorder: LANNY BELLO RN; Confirmation: Confirmed ; Classification: Medical ; Code: 04298478 ; Contributor System: [employer] ; Last Updated: 08/12/2017 10:18 EDT ; Life Cycle Date: 09/11/2015 ; Life Cycle Status: Active ; Vocabulary: SNOMED CT Chronic depression (SNOMED CT :035024489 ) Name of Problem: Chronic depression ; Recorder: AZALEA ALBRIGHT RN; Confirmation: Confirmed ; Classification: Patient Stated ; Code: 214549192 ; Contributor System: [employer] ; Last Updated: 01/11/2017 14:23 EST ; Life Cycle Date: 01/11/2017 ; Life Cycle Status: Active ; Vocabulary: SNOMED CT Diabetes (SNOMED CT :736406334 ) Name of Problem: Diabetes ; Recorder: LANNY BELLO RN; Confirmation: Confirmed ; Classification: Medical ; Code: 582115601 ; Contributor System: Power[employer] ; Last Updated: 09/11/2015 14:10 EDT ; Life Cycle Date: 09/11/2015 ; Life Cycle Status: Active ; Vocabulary: SNOMED CT GERD (gastroesophageal reflux disease) (SNOMED CT :182868987 ) Name of Problem: GERD (gastroesophageal reflux disease) ; Recorder: LANNY BELLO RN; Confirmation: Confirmed ; Classification: Medical ; Code: 979865615 ; Contributor System: [employer] ; Last Updated: 09/11/2015 14:11 EDT ; Life Cycle Date: 09/11/2015 ; Life Cycle Status: Active ; Vocabulary: SNOMED CT H/O syncope (SNOMED CT :7040789652 ) Name of Problem: H/O syncope ; Recorder: AZALEA ALBRIGHT RN; Confirmation: Confirmed ; Classification: Patient Stated ; Code: 1394966567 ; Contributor System: Power[employer] ; Last Updated: 01/11/2017 14:29 EST ; Life Cycle Date: 01/11/2017 ; Life Cycle Status: Active ; Vocabulary: SNOMED CT History of recurrent UTIs (SNOMED CT :999866073 ) Name of Problem: History of recurrent UTIs ; Recorder: AZALEA ALBRIGHT RN; Confirmation: Confirmed ; Classification: Patient Stated ; Code: 051031168 ; Contributor System: [employer] ; Last Updated: 01/11/2017 14:22 EST ; Life Cycle Date: 01/11/2017 ; Life Cycle Status: Active ; Vocabulary: SNOMED CT Hyperlipidemia (SNOMED CT :24199338 ) Name of Problem: Hyperlipidemia ; Recorder: LANNY BELLO RN; Confirmation: Confirmed ; Classification: Medical ; Code: 50676274 ; Contributor System: [employer] ; Last Updated: 09/11/2015 14:10 EDT ; Life Cycle Date: 09/11/2015 ; Life Cycle Status: Active ; Vocabulary: SNOMED CT Renal insufficiency (SNOMED CT :1823196006 ) Name of Problem: Renal insufficiency ; Recorder: AZALEA ALBRIGHT RN; Confirmation: Confirmed ; Classification: Patient Stated ; Code: 6713312362 ; Contributor System: [employer] ; Last Updated: 01/11/2017 14:22 EST ; Life Cycle Date: 01/11/2017 ; Life Cycle Status: Active ; Vocabulary: SNOMED CT right carpal tunnel (SNOMED CT :01737602 ) Name of Problem: right carpal tunnel ; Recorder: LANNY BELLO RN; Confirmation: Confirmed ; Classification: Medical ; Code: 31397941 ; Contributor System: PowerChart ; Last Updated: 09/02/2017 10:07 EDT ; Life Cycle Date: 09/11/2015 ; Life Cycle Status: Active ; Vocabulary: SNOMED CT Right tennis elbow (SNOMED CT :7445083119 ) Name of Problem: Right tennis elbow ; Recorder: LANNY BELLO RN; Confirmation: Confirmed ; Classification: Medical ; Code: 6167450302 ; Contributor System: Power[employer] ; Last Updated: 05/21/2019 14:33 EDT ; Life Cycle Status: Active ; Vocabulary: SNOMED CT ; Comments: 09/11/2015 14:11 - LANNY BELLO RN recent diagnosis RLS (restless legs syndrome) (SNOMED CT :53250350 ) Name of Problem: RLS (restless legs syndrome) ; Recorder: LANNY BELLO RN; Confirmation: Confirmed ; Classification: Medical ; Code: 47474959 ; Contributor System: [employer] ; Last Updated: 09/11/2015 14:33 EDT ; Life Cycle Date: 09/11/2015 ; Life Cycle Status: Active ; Vocabulary: SNOMED CT sleep apnea with Cpap (SNOMED CT :821633922 ) Name of Problem: sleep apnea with Cpap ; Recorder: LANNY BELLO RN; Confirmation: Confirmed ; Classification: Medical ; Code: 718379718 ; Contributor System: [employer] ; Last Updated: 08/12/2017 11:32 EDT ; Life Cycle Date: 09/11/2015 ; Life Cycle Status: Active ; Vocabulary: SNOMED CT Stress incontinence (SNOMED CT :483846349 ) Name of Problem: Stress incontinence ; Recorder: LANNY BELLO RN; Confirmation: Confirmed ; Classification: Medical ; Code: 337704328 ; Contributor System: [employer] ; Last Updated: 09/11/2015 14:12 EDT ; Life Cycle Date: 09/11/2015 ; Life Cycle Status: Active ; Vocabulary: SNOMED CT Diagnoses(Active) Medical screening exam Date: 07/01/2021 ; Diagnosis Type: Reason For Visit ; Confirmation: Complaint of ; Clinical Dx: Medical screening exam ; Classification: Medical ; Clinical Service: Emergency medicine ; Code: PNED ; Probability: 0 ; Diagnosis Code: [id number] ED Height and Weight Height Source : Stated Height Entry Format : Smith Height, Feet : 5 ft(Converted to: 152 cm, 60 Inch) Height, Inches : 6 Inch(Converted to: 0 ft 6 Inch, 15.24 cm) Clinical Height : 167.64 cm Weight Source, ED : Standing scale Weight Entry Format : Smith Weight, Pounds : 203 lb Clinical Dosing Weight : 92.27 kg Body Surface Area (BSA) : 2.01 m2 Body Mass Index : 32.8 kg/m2 (HI) Gaines Body Weight (IBW) : 58.88 kg LANG WOOD RN - 07/01/2021 12:30 EDT documented in this encounter Plan of Treatment Not on file documented as of this encounter Visit Diagnoses Not on filedocumented in this encounter Care Teams Apartment Hotel Manager Relationship Specialty Start Date End Date Taina Lyles, ADRI [address] [place] [address] PCP - General Nurse Practitioner 06/15/23 documented as of this encounter
--- OUTSIDE RECORDS SUMMARY | 2025-08-25 15:19 | XMS_ITS | Encounter Summary ---
Author Organization [facility] Address [address] [place] [address] Care Team Providers Care Community Product Specialist Name Role Phone Lea Fernando Unavailable [phone] Rachel Ray TESTING MACHINE OPERATOR Unavailable [phone] Alvarez Zimmer MD Primary Care Provider [phone] Tamera Isabel RUBBER MIXER Unavailable Unavailabl e Encounter Details Date Type Department Care Team (Latest Contact Info) Description 08/19/2025 Travel Social History Tobacco Use Types Packs/Day [...] 05/29/2025 How often do you attend [facility] or sikh services? Never 05/29/2025 Do you [...] more drinks on one occasion? Never 06/25/2025 [facility] of Occupat ional [facility] - Occupational Stress Questionnaire Answer [...] living in a mcfp (including now)? No 08/19/2025 [facility] Utilities Answer Date Recorded In the [...] first t kennedy in the morning (EYE-OPERATIONS OFFICER TRUST DEPARTMENT) to steady your nerves or to get [...] Date of Assessment Author No Risk Indicated 08/19/2025 8:00 PM EDT Neyda Cosme * Question Answer Date of Assessment Author 1. Wish to be (Past 1 Month) No 025 8:00 PM EDT Neyda Cosme 2. Non-Specific Active Suici liz Thoughts (Past 1 Month) No 08/19/2025 8:00 PM EDT Neyda Cosme 6. Suicidal Behavior (Lifetime) No 8:00 PM EDT Neyda Cosme documented as of this encounter Plan of Treatment Upcoming Encounters Date Type Department Care Team (Late st Contact Info) Description 08/26/2025 1:00 PM EDT Office Visit [facility] [address] [place] [address] Miranda Hobson, TESTING MACHINE OPERATOR [address] [place] [address] 08/29/2025 10:00 AM EDT Appointment [facility] Inter[facility] [address] [place] [address] 08/29/2025 11:00 AM EDT Appointment [facility]iology [address] [place] [address] 09/03/2025 8:40 AM EDT Office Visit [facility] [address] [facility], [address] [place] [address] Lillie Pritchard MD [address] [place] [address] 09/05/2025 10:00 AM EDT Appointment [facility]iology [address] [place] [address] 09/05/2025 11:00 AM EDT Appointment [facility] [address] [place] [address] 09/17/2025 9:45 AM EDT Clinical Support [facility] [place] [address] [place] [address] 09/17/2025 10:30 AM EDT Social Work [facility] [place] [address] [place] [address] Lea Reilly, [place] [id number] 09/17/2025 11:20 AM EDT Office Visit [facility] [place] [address] [place] [address] Octavia Herrera, MARIA GUADALUPE [address] [place] [address] documented as of this encounter Visit Diagnoses [...] documented as of this encounter Care Teams Community Product Specialist Relationship Specialty Start Date End Date Alvarez Zimmer MD [address] [place] [address] PCP - General Family Medicine 12/07/24 Lea Fernando [address] [place] [address] Professional Bass Fisher Endocrinology 08/29/24 Rachel Ray APRN [address] [facility] [address] [place] [address] Nurse Practitioner Gastroenterology 09/24/24 Tamera Isabel LPN VALUE-BASED TRANSFORMATION PROGRAM Licensed Practical Nurse 05/29/25 documented as of this encounter
--- OUTSIDE RECORDS SUMMARY | 2025-08-25 15:19 | XMS_ITS | Encounter Summary ---
Author Organization [facility] Address [address] [place] [address] Care Team Providers Care Meter Tester Name Role Phone Lea Fernando Unavailable [phone] Rachel Ray GEOTECHNICAL OPERATING ENGINEER Unavailable [phone] Alvarez Zimmer MD Primary Care Provider [phone] Tamera Isabel STAGE HAND Unavailable Unavailabl e Encounter Details Date Type Department Care Team (Latest Contact Info) Description 08/18/2025 Travel Social History Tobacco Use Types Packs/Day [...] you attend [facility] or cheondoism services? Never 05/29/2025 Do you [...] more drinks on one occasion? Never 06/25/2025 [facility] [place] of Occupat ional [facility] - Occupational Stress Questionnaire Answer Date [...] living in a long-term (including now)? No 08/19/2025 [facility] Utilities Answer Date Recorded In the past [...] drink first t kennedy in the morning (EYE-MASTER YACHT) to steady your nerves or to get [...] Date of Assessment Author No Risk Indicated 08/18/2025 8:00 PM EDT Melissa Carney RN * Question Answer Date of Assessment Author 1. Wish to be (Past 1 Month) No 025 8:00 PM TAMMYT Melissa Carney RN 2. Non-Specific Active Suici liz Thoughts (Past 1 Month) No 08/18/2025 8:00 PM EDT Paolo Carney se, RN 6. Suicidal Behavior (Lifetime) No 8:00 PM EDT Melissa Carney RN documented as of this encounter Plan of Treatment Upcoming Encounters Date Type Department Care Team (Late st Contact Info) Description 08/26/2025 1:00 PM EDT Office Visit [facility] Endocrinology [address] [place] [address] Miranda Hobson, GEOTECHNICAL OPERATING ENGINEER [address] [place] [address] 08/29/2025 10:00 AM EDT Appointment [facility] [address] [place] [address] 08/29/2025 11:00 AM EDT Appointment [facility] [address] [place] [address] 09/03/2025 8:40 AM EDT Office Visit [facility] [address] [facility], [address] [place] [address] Lillie Pritchard MD [address] [place] [address] 09/05/2025 10:00 AM EDT Appointment [facility]iology [address] [place] [address] 09/05/2025 11:00 AM EDT Appointment [facility]iology [address] [place] [address] 09/17/2025 9:45 AM EDT Clinical Support [facility] [place] [address] [place] [address] 09/17/2025 10:30 AM EDT Social Work [facility] [place] [address] [place] [address] Lea Reilly, [place] [address] 09/17/2025 11:20 AM EDT Office Visit [facility] [place] [address] [place] [address] Octavia Herrera, PA [address] [place] [address] documented as of this encounter Visit Diagnoses [...] as of this encounter Care Teams Meter Tester Relationship Specialty Start Date End Date Alvarez Zimmer MD [address] [place] [address] PCP - General Family Medicine 12/07/24 Lea Fernando [address] [place] [address] Water Jet Operator Endocrinology 08/29/24 Rachel Ray APRN [address] [facility] [address] [place] [address] Nurse Practitioner Gastroenterology 09/24/24 Tamera Isabel, STAGE HAND VALUE-BASED TRANSFORMATION PROGRAM Licensed Practical Nurse 05/29/25 documented as of this encounter
--- OUTSIDE RECORDS SUMMARY | 2025-08-25 15:19 | XMS_ITS | Encounter Summary ---
Author Organization [employer] ([place], [place], [place], [place]) Address [address] [place] [address] Care Team Providers Care Sales Agent Food Vending Service Name Role Phone Taina Lyles GLUE SPRAYER Primary Care Provider [phone] Encounter Details Date Type Department Care Team (Late st Contact Info) Description 07/01/2021 Transcribed Document [facility] Family Medicine [address] [place] [address] ProviderWilliam MD [address] [place], [place] [address] Social History Tobacco Use Types Packs/Day Years [...] Communication Barrier : None Primary Language : Kuwaiti Any Spiritual/Cultural Needs or Requests : No [...] on filedocumented in this encounter Care Teams Sales Agent Food Vending Service Relationship Specialty Start Date End Date Taina Lyles, GLUE SPRAYER [address] [place] [address] PCP - General Nurse Practitioner 06/15/23 documented as of this encounter
--- OUTSIDE RECORDS SUMMARY | 2025-08-25 15:19 | XMS_ITS | Encounter Summary ---
Author Organization [employer] ([place], [place], [place], [place]) Address [address] [place] [address] Care Team Providers Care Molder Feeder Name Role Phone Taina Lyles APRN Primary Care Provider [phone] Encounter Details Date Type Department Care Team (Late st Contact Info) Description 09/09/2020 Transcribed Document [facility] [place] [address] [place] [address] ProviderWilliam MD [address] [place], [place] [address] Social History Tobacco Use Types Packs/Day Years [...] filedocumented in this encounter Care Teams Molder Feeder Relationship Specialty Start Date End Date Taina Lyles, ADRI [address] [place] [address] PCP - General Nurse Practitioner 06/15/23 documented as of this encounter
--- OUTSIDE RECORDS SUMMARY | 2025-08-25 15:19 | XMS_ITS | Encounter Summary ---
Author Organization [facility] ([place], [place]) Address [address] [place] [address] Care Team Providers Care Flake Drier Name Role Phone Taina Lyles ADRI Primary Care Provider [phone] Encounter Details Date Type Department Care Team (Late st Contact Info) Description 09/09/2020 Transcribed Document [facility] Family Medicine [address] [place] [address] ProviderWilliam MD [address] [place], [place] [address] Social History Tobacco Use Types Packs/Day Years [...] on filedocumented in this encounter Care Teams Flake Drier Relationship Specialty Start Date End Date Taina Lyles, DURABILITY ENGINEER [address] [place] [address] PCP - General Nurse Practitioner 06/15/23 documented as of this encounter
--- OUTSIDE RECORDS SUMMARY | 2025-08-25 15:19 | XMS_ITS | Encounter Summary ---
Author Organization [employer] ([place]) Address [address] [place] [address] Care Team Providers Care Business Operations Specialist Name Role Phone Taina Lyles APRN Primary Care Provider Encounter Details Date Type Department Care Team (Late st Contact Info) Description 09/09/2020 Transcribed Document [facility] [place] [address] [place] [address] ProviderWilliam MD [address] [place] [address] Social History Tobacco Use Types Packs/Day Years [...] 12:00 PM CDT Electronically signed by Luigi [facility] Conversion Respiratory Care Faculty Cerner at 03/07/2023 9:57 AM CDT documented in this encounter Plan of Treatment Not on file documented as of this encounter Visit Diagnoses Not on filedocumented in this encounter Care Teams Business Operations Specialist Relationship Specialty Start Date End Date Taina Lyles APRN [address] [place], [place] [address] [address] PCP - General Nurse Practitioner 06/15/23 documented as of this encounter
--- OUTSIDE RECORDS SUMMARY | 2025-08-25 15:19 | XMS_ITS | Encounter Summary ---
Author Organization [employer] ([place], [place]) Address [address] [place] [address] Care Team Providers Care Radiation Oncologist Name Role Phone Taina Lyles ADRI Primary Care Provider [phone] Encounter Details Date Type Department Care Team (Late st Contact Info) Description 09/09/2020 Transcribed Document [facility] Family Medicine [address] [place] [address] ProviderWilliam MD [address] [place], [place] [address] Social History Tobacco Use Types Packs/Day Years [...] On: 09/09/2020 15:08 EDT by KEITH TAVERA, PROFESSOR OF FOREST PLANNING Event Note ED Event Date/Time : 09/09/2020 [...] on filedocumented in this encounter Care Teams Radiation Oncologist Relationship Specialty Start Date End Date Taina Lyles, SHUTTLELESS LOOM WEAVER [address] [place] [address] PCP - General Nurse Practitioner 06/15/23 documented as of this encounter
--- OUTSIDE RECORDS SUMMARY | 2025-08-25 15:19 | XMS_ITS | Encounter Summary ---
Author Organization [employer] ([place], [place]) Address [address] [place] [address] Care Team Providers Care Supervisor Varnish Name Role Phone Taina Lyles ADRI Primary Care Provider [phone] Encounter Details Date Type Department Care Team (Late st Contact Info) Description 07/02/2021 Transcribed Document [facility] [place] Family Medicine [address] [place] [address] ProviderWilliam MD [address] [place], [place] [address] Social History Tobacco Use Types Packs/Day Years [...] filedocumented in this encounter Care Teams Supervisor Varnish Relationship Specialty Start Date End Date Taina Lyles, SEROLOGY TEACHER [address] [place] [address] PCP - General Nurse Practitioner 06/15/23 documented as of this encounter
--- OUTSIDE RECORDS SUMMARY | 2025-08-25 15:19 | XMS_ITS | Encounter Summary ---
Author Organization [employer] ([place], [place]) Address [address] [place] [address] Care Team Providers Care Abstractor Name Role Phone Taina Lyles ADRI Primary Care Provider [phone] Encounter Details Date Type Department Care Team (Late st Contact Info) Description 07/01/2021 Transcribed Document [facility] Family Medicine [address] [place] [address] ProviderWilliam MD [address] [place], [place] [address] Social History Tobacco Use Types Packs/Day Years [...] Reyes MD - 07/01/2021 12:13 PM CDT [place] Suicide Severity Rating Scale (C-SSRS) Entered On: 07/01/2021 17:31 EDT Performed On: 07/01/2021 17:31 EDT by Medina Lai RN [place] Suicide Severity Rating Scale (C-SSRS) CSSRS Past [...] on filedocumented in this encounter Care Teams Abstractor Relationship Specialty Start Date End Date Taina Lyles, STOCKROOM KEEPER [address] [place] [address] PCP - General Nurse Practitioner 06/15/23 documented as of this encounter
--- OUTSIDE RECORDS SUMMARY | 2025-08-25 15:19 | XMS_ITS | Encounter Summary ---
Author Organization [employer] ([place]) Address [address] [place] [address] Care Team Providers Care Figurine Maker Name Role Phone Taina Lyles APRN Primary Care Provider [phone] Encounter Details Date Type Department Care Team (Late st Contact Info) Description 09/09/2020 Transcribed Document [facility] [facility] Family Medicine [address] [place] [address] ProviderWilliam MD [address] [place], [place] [id number] Social History Tobacco Use Types Packs/Day Years [...] EDT Electronically signed by Maddie Meyers Conversion Computer Forensics Technician Cerner at 03/07/2023 9:55 AM CDT documented in this encounter Plan of Treatment Not on file documented as of this encounter Visit Diagnoses Not on filedocumented in this encounter Care Teams Figurine Maker Relationship Specialty Start Date End Date Zetter, Taina J, ONLINE HEALTH AND FITNESS COACH [address] [place] [address] PCP - General Nurse Practitioner 06/15/23 documented as of this encounter
--- OUTSIDE RECORDS SUMMARY | 2025-08-25 15:19 | XMS_ITS | Encounter Summary ---
Author Organization [employer] ([place], [place]) Address [address] [place] [address] Care Team Providers Care Newspaper Vendor Name Role Phone Taina Lyles ADRI Primary Care Provider [phone] Encounter Details Date Type Department Care Team (Late st Contact Info) Description 09/09/2020 Transcribed Document [facility] [place] [address] [place] [address] ProviderWilliam MD [address] [place], [place] [id number] Social History Tobacco Use Types Packs/Day Years [...] On: 09/09/2020 12:24 EDT by KEITH TAVERA, SILK WASHING MACHINE OPERATOR Event Note ED Event Date/Time [...] on filedocumented in this encounter Care Teams Newspaper Vendor Relationship Specialty Start Date End Date Taina Lyles, PLUMBING TECHNICIAN [address] [place] [address] PCP - General Nurse Practitioner 06/15/23 documented as of this encounter
--- OUTSIDE RECORDS SUMMARY | 2025-08-25 15:19 | XMS_ITS | Encounter Summary ---
Author Organization [email or web address] ([place], [place], [place]) Address [address] [place] [address] Care Team Providers Care Oracle Fusion Middleware Developer Name Role Phone Taina Lyles APRN Primary Care Provider [phone] Encounter Details Date Type Department Care Team (Late st Contact Info) Description 07/02/2021 Transcribed Document [facility] [place] [address] [place] [address] ProviderWilliam MD [address] [place] [address] Social History Tobacco Use Types Packs/Day Years [...] AM CDT Electronically signed by Luigi [facility] Conversion Quarry Equipment Operator Cerner at 03/07/2023 9:52 AM CDT documented in this encounter Plan of Treatment Not on file documented as of this encounter Visit Diagnoses Not on filedocumented in this encounter Care Teams Oracle Fusion Middleware Developer Relationship Specialty Start Date End Date Taina Lyles APRN [address] [facility] [place] [address] PCP - General Nurse Practitioner 06/15/23 documented as of this encounter
--- OUTSIDE RECORDS SUMMARY | 2025-08-25 15:19 | XMS_ITS ---
Author Organization [facility] Address [address] [place] [address] Care Team Providers Care Group Chief Operator Name Role Phone Lea Fernando Unavailable [phone] Rachel Ray TELEPHONE SUPERVISOR Unavailable [phone] Alvarez Zimmer MD Primary Care Provider [phone] Tamera Isabel HAIRSPRING TRUING INSPECTOR Unavailable UnavailShaniqua Lomeli HAIRSPRING TRUING INSPECTOR Unavailable Unavailable Transplant Episode Kidney Candidate [facility] ([place], [place]) [facility] Evaluation began on 10/30/2024 Marked as Active on 10/30/2024 Kidney CoordinatorWilma Arana RN Fax: N/A Email: N/A Scores Score Value Updated Exceptions/Reas ons CPRA Not available EPTS (Calc) 54 08/25/2025 [place] Organ Diagnosis Organ Primary Contributory Kidney Diabetes Mellitus - Type II Care Team Name Role Phone Fax Email Wilma Arana RN Kidney Coordinator [phone] N/A N/A Events Pre-Transplant Referred: 10/21/2024 Evaluation began: 10/30/2024 Appointments (07/26/2025 - 09/25/2025) When With Visit Type Description 09/03/2025 Brady Robles Transition of Care 09/17/2025 Transplant LAB 09/17/2025 Transplant - Carmel Reilly rk - Office Visit 09/17/2025 Transplant - Nicole Herrera Office Vi sit - Transplant
--- OUTSIDE RECORDS SUMMARY | 2025-08-25 15:19 | XMS_ITS | Encounter Summary ---
Author Organization [facility] Address [address] [place] [address] Care Team Providers Care Tool Drawing Checker Name Role Phone Lea Fernando Unavailable [phone] Rachel Ray V BELT CURER Unavailable [phone] Alvarez Zimmer MD Primary Care Provider [phone] Tamera Isabel PRODUCTION STAFF WORKER Unavailable UnavailShaniqua Lomeli LPN Unavailable Unavailable Encounter Details Date Type Department Care Team (Late st Contact Info) Description 08/17/2025 Orders Only External Location [address] [place] [address] Provider, External Social History Tobacco Use Types [...] do you attend [facility] or nondenominational services? Patient unable to answer [...] on one occasion? Never 06/25/2025 [facility] of Occupat ional Health - Occupational [...] in a correction (including now)? No 08/19/2025 [facility] Utilities Answer Date Recorded In the past [...] drink first t kennedy in the morning (EYE-POLE CLIMBER) to steady your nerves or to get [...] Behavior (Lifetime) No 8:00 AM EDT Laverne Booth RN documented as of this encounter Plan of Treatment Upcoming Encounters Date Type Department Care Team (Late st Contact Info) Description 08/26/2025 1:00 PM EDT Office Visit [facility] Endocrinology [address] [place] [address] Miranda Hobson, V BELT CURER [address] [place] [address] 08/29/2025 10:00 AM EDT Appointment [facility] Interventional Radiology [address] [place] [address] 08/29/2025 11:00 AM EDT Appointment [facility] Interventional Radiology [address] [place] [address] 09/03/2025 8:40 AM EDT Office Visit [facility] [address] [facility], [address] [place] [address] Lillie Pritchard MD [address] [place] [address] 09/05/2025 10:00 AM EDT Appointment [facility] Interventional Radiology [address] [place] [address] 09/05/2025 11:00 AM EDT Appointment [facility] Inter[facility] Radiology [address] [place] [address] 09/17/2025 9:45 AM EDT Clinical Support [facility] [place] [address] [place] [address] 09/17/2025 10:30 AM EDT Social Work [facility] [place] [address] [place] [address] Lea Reilly, [place] [address] 09/17/2025 11:20 AM EDT Office Visit [facility] [place] [address] [facility] [address] [place] [address] Octavia Herrera, PA [address] [place] [address] documented as of this encounter Procedures Procedure Name Priority Date/Time Associated Diagnosis Comments CT NEURO OUTSIDE IMAGES 08/17/2025 4:36 PM EDT documented in this encounter Results * CT NEURO OUTSIDE IMAGES (08/17/2025 4:36 PM EDT) Anatomical Region Laterality Modality Computed Tomogra phy 08/17/2025 4:36 PM EDT us External Provider IMG CT PROCEDURES Edited Resul t - Final documented in this encounter Visit Diagnoses Not [...] as of this encounter Care Teams Tool Drawing Checker Relationship Specialty Start Date End Date Alvarez Zimmer MD [address] [place] [address] PCP - General Family Medicine 12/07/24 Lea Fernando [address] [place] [address] Boat Loader Helper Endocrinology 08/29/24 Rachel Ray APRN [address] [place] [address] Nurse Practitioner Gastroenterology 09/24/24 Tamera Isabel LPN VALUE-BASED TRANSFORMATION PROGRAM Licensed Practical Nurse 05/29/25 Shaniqua Trevino LPN TCM Nurse 08/21/25 documented as of this encounter
--- OUTSIDE RECORDS SUMMARY | 2025-08-25 15:19 | XMS_ITS | Encounter Summary ---
Author Organization [employer] ([place], [place], [place], [place]) Address [address] [place] [address] Care Team Providers Care Lunch Truck Driver Name Role Phone Taina Lyles BRAZER CRAWLER TORCH Primary Care Provider [phone] Encounter Details Date Type Department Care Team (Late st Contact Info) Description 09/09/2020 Transcribed Document [facility] [place] [place] Family Medicine [address] [place] [address] ProviderWilliam MD [address] [place] [address] Social History Tobacco Use Types [...] Reyes MD - 09/09/2020 3:03 PM CDT [place] [id number] MONIKA ZIMMER :1960 Visit Time:09/08/2020 Your Visit [...] 1 week Where: [address] [facility] [address] [place] [address]- Business (1) Follow Up with ERYN PARKINSON When Within 2 to 3 days Where: [address] [place] [address] [facility] (1) Allergies No Known Allergies Immunizations This Visit No Immunizations Found Medications What How Much When Instructions Next Dose isosorbide mononitrate (isosorbide mononitrate 60 mg oral tablet, extended release) 1 Tablet(s) Oral Every Morning Duration: 30 Day(s) Pickup at [facility] albuterol (Ventolin HFA 90 [...] oral tablet) Oral At Bedtime Pharmacy Information [facility]: [address] [facility] [place] [phone] The home medications listed are only as [...] range between ( 1.0 and 7.0 ) [place] #: 0.94 K/uL -- Normal range between ( 0.24 and 0.82 ) [place]os #: 0.32 K/uL -- Normal range between ( 0.04 and 0.54 ) [place] %: 7.6 % -- Normal range between [...] ) Urine Bilirubin Dipstick: Negative Urine Specific Childs: *1.026 -- Normal range between ( 1.005 and 1.030 ) Microbiology 09/08/2020 8:19 PM Novel Coronavirus 2019: Negative Urine Chemistry 09/08/2020 8:19 PM Osmolality Urine: 662 mOsm/kg -- Normal range between ( 250 and 900 ) Sodium Ur [place]: 127 mMole/Liter General Chemistry 09/09/2020 12:10 PM [...] lot of fat or sugar. ??? Take tqoz-xop-yibnjvq and prescription medicines only as told by [...] 11/07/2006 Document Revised: 10/20/2018 Document Reviewed: 12/31/2016 [employer]Lime[employer] Patient Education ?? 2020 [employer] Angina Angina is extreme discomfort in [...] these instructions at home: Medicines ??? Take wimd-kpx-texteiz and prescription medicines only as told by [...] 11/07/2006 Document Revised: 06/25/2019 Document Reviewed: 06/25/2019 [employer] Patient Education ?? 2020 [employer] Emergency Awareness and Preventative Care STROKE [...] Assistance with quitting is available by contacting 6-674-BRDW-NOW. This is a free resource providing counseling, [...] was given the opportunity to ask questions. Patient/Wool Fleece Grader Name: Patient/Wool Fleece Grader Signature: Relationship to Patient: Clinician/Hospital Wool Fleece Grader Signature: Please Provide a Telephone Number Where You Can Be Reached: Is it Permissible To Leave a Message? Date: documented in this encounter Plan of Treatment Not on file documented as of this encounter Visit Diagnoses Not on filedocumented in this encounter Care Teams Lunch Truck Driver Relationship Specialty Start Date End Date Taina Lyles, BRAZER CRAWLER TORCH [address] [place] [address] PCP - General Nurse Practitioner 06/15/23 documented as of this encounter
--- OUTSIDE RECORDS SUMMARY | 2025-08-25 15:19 | XMS_ITS | Encounter Summary ---
Author Organization Healthcare Address [address] [place] [address] Care Team Providers Care Check Cashier Name Role Phone Lea Fernando Unavailable [phone] Rachel Ray ACUTE CARE SURGEON Unavailable [phone] Alvarez Zimmer MD Primary Care Provider [phone] Tamera Isabel LOGGING CONTRACTOR Unavailable UnavailShaniqua Lomeli LOGGING CONTRACTOR Unavailable Unavailable Encounter Details Date Type Department Care Team (Late st Contact Info) Description 08/17/2025 Orders Only External Location [address] [place] [address] Rowan Castellano S, DO [address] [place] [address] Social History Tobacco Use Types [...] o r organizations such as moravian groups, [employer], [employer] or athletic groups, or school groups? Patient [...] week 05/29/2025 How often do you attend [facility] or synagogue services? Never 05/29/2025 Do you belong to any clubs o r organizations such as moravian groups, unions, [employer] or athletic groups, or school groups? No [...] occasion? Never 06/25/2025 [facility] - Occupational Stress Questionnaire Answer Date Recorded [...] a nursing home (including now)? No 08/19/2025 [facility] Utilities Answer Date Recorded In the [...] first t kennedy in the morning (EYE-PRODUCT MARKETING DIRECTOR) to steady your nerves or to [...] Month) No 08/20/2025 8:00 AM EDT Rachael Booth RN 6. Suicidal Behavior (Lifetime) No 8:00 AM EDT Laverne Booth, PARK documented as of this encounter Plan of Treatment Upcoming Encounters Date Type Department Care Team (Late st Contact Info) Description 08/26/2025 1:00 PM EDT Office Visit [facility] Endocrinology [address] [place] [address] Miranda Hobson, ACUTE CARE SURGEON [address] [place] [address] 08/29/2025 10:00 AM EDT Appointment [facility] Interventional Radiology [address] [place] [address] 08/29/2025 11:00 AM EDT Appointment [facility] Interventional Radiology [address] [place] [address] 09/03/2025 8:40 AM EDT Office Visit [facility] [address] [place] [address] Lillie Pritchard MD [address] [place] [address] [id number] 09/05/2025 10:00 AM EDT Appointment [facility] Inter[facility] Radiology [address] [place] [address] 09/05/2025 11:00 AM EDT Appointment [facility] Interventional Radiology [address] [place] [address] 09/17/2025 9:45 AM EDT Clinical Support [facility] [place] [address] [facility] [address] [place] [address] 09/17/2025 10:30 [address] [facility] [place] [address] [place] [address] Lea Reilly, [place] [id number] 09/17/2025 11:20 AM EDT Office Visit [facility] [place] [address] [place] [address] Octavia Herrera, PA [address] [facility] [address] [place] [address] documented as of this encounter Procedures Procedure Name Priority Date/Time Associated Diagnosis Comments XR OUTSIDE IMAGES 08/17/2025 4:41 PM EDT documented in this encounter Results * XR OUTSIDE IMAGES (08/17/2025 4:41 PM EDT) Anatomical Region Laterality Modality Radiographic [place] ging 08/17/2025 4:41 PM EDT Rowan Castellano DO IMG XR PROCEDURES Edited Result - Final documented in this encounter Visit [...] documented as of this encounter Care Teams Check Cashier Relationship Specialty Start Date End Date Alvarez Zimmer MD [address] [place] [phone] PCP - General Family Medicine 12/07/24 Lea Fernando [address] [facility] [address] [place] [address] [employer] Machine Helper Endocrinology 08/29/24 Rachel Ray, ACUTE CARE SURGEON [address] [facility] [address] [place] [address] Nurse Practitioner Gastroenterology 09/24/24 Tamera Isabel LPN VALUE-BASED TRANSFORMATION PROGRAM Licensed Practical Nurse 05/29/25 Shaniqua Trevino LPN TCM Nurse 08/21/25 documented as of this encounter
--- OUTSIDE RECORDS SUMMARY | 2025-08-25 15:19 | XMS_ITS | Encounter Summary ---
Author Organization [employer] ([place], [place], [place], [place]) Address [address] [place] [address] Care Team Providers Care Roads Supervisor Name Role Phone Taina Lyles ADRI Primary Care Provider Encounter Details Date Type Department Care Team (Late st Contact Info) Description 09/11/2020 Transcribed Document [facility] [place] Family Medicine [address] [place] [address] ProviderWilliam MD [address] [place], [place] [id number] Social History Tobacco Use Types Packs/Day Years [...] on filedocumented in this encounter Care Teams Roads Supervisor Relationship Specialty Start Date End Date Taina Lyles, MILL SUPERVISOR [address] [place] [address] PCP - General Nurse Practitioner 06/15/23 documented as of this encounter
--- OUTSIDE RECORDS SUMMARY | 2025-08-25 15:19 | XMS_ITS ---
Author Organization [facility] Address [address] [place] [address] Care Team Providers Care Vice President Quality Name Role Phone Lea Fernando Unavailable [phone] Rachel Ray LITIGATION SPECIALIST Unavailable [phone] Alvarez Zimmer MD Primary Care Provider [phone] Tamera Isabel LPN Unavailable UnavailShaniqua Lomeli LPN Unavailable Unavailable Annual Wellness Status:Active (Active) Start date:05/29/2025 Enrollment date:05/29/2025 Enrollment reason:Identified using claims or encounter data Case Team Name Relationship Phone Tamera Isabel LPN(Responsible Staff) Licensed Practical Nurse Continued Care and Services Coordination
--- OUTSIDE RECORDS SUMMARY | 2025-08-25 15:19 | XMS_ITS ---
Author Organization [facility] Address [address] [place] [address] Care Team Providers Care Audiometrist Name Role Phone Lea Fernando Unavailable [phone] Rachel Ray CRM MARKETING SPECIALIST Unavailable [phone] Alvarez Zimmer MD Primary Care Provider [phone] Tamera Isabel CIRCULAR DISTRIBUTOR Unavailable UnavailShaniqua Lomeli LPN Unavailable Unavailable Transitional Care Management Status:Active (Active) Start date:08/21/2025 Enrollment date:08/21/2025 Enrollment reason:Identified using hospital discharge data Overview This episode type is for outpatient care managers enrolling patients in the [facility] Transitional Care Management program. Case Team Name Relationship Phone Shaniqua Trevino LPN(Responsible Staff) TCM Nurse Continued Care and Services Coordination
--- OUTSIDE RECORDS SUMMARY | 2025-08-25 15:19 | XMS_ITS | Encounter Summary ---
Author Organization [employer] ([place], [place], [place], [place]) Address [address] [place] [address] Care Team Providers Care Pharmaceutical Botanist Name Role Phone Taina Lyles STUMP SHOOTER Primary Care Provider [phone] Encounter Details Date Type Department Care Team (Late st Contact Info) Description 07/02/2021 Transcribed Document [facility] [place] Family Medicine [facility] [place] [address] ProviderWilliam MD [address] [place], [place] [id number] Social History Tobacco Use Types Packs/Day Years [...] list: All Problems Anxiety / SNOMED CT 9260292068 / Confirmed Arthritis / SNOMED CT 5271283 / Confirmed ADD (attention deficit disorder) / SNOMED CT 2295527935 / Confirmed right carpal tunnel / SNOMED CT 52061208 / Confirmed Chronic depression / SNOMED CT 770601821 / Confirmed Diabetes / SNOMED CT 246067987 / Confirmed GERD (gastroesophageal reflux disease) / SNOMED CT 838228372 / Confirmed Stress incontinence / SNOMED CT 966540598 / Confirmed History of recurrent UTIs / SNOMED CT 252572538 / Confirmed H/O syncope / SNOMED CT 3580834611 / Confirmed Hyperlipidemia / SNOMED CT 90878111 / Confirmed bilateral knee pain / SNOMED CT 00281848 / Confirmed Right tennis elbow / SNOMED CT 4506027073 / Confirmed recent diagnosis Renal insufficiency / SNOMED CT 2037447693 / Confirmed RLS (restless legs syndrome) / SNOMED CT 30376578 / Confirmed sleep apnea with Cpap / SNOMED CT 373882156 / Confirmed, Active Problems (16) ADD (attention [...] EDT Height Source Stated Height Entry Format [place] Height/Length, CITIZ[place] (ft) 5 ft Height/Length [place] 6 Inch CLINICALHEIGHT 167.64 cm [place] Body Weight 58.88 kg Weight Source, ED Standing scale Weight Entry Format [place] Weight [place] lb 203 lb CLINICALWEIGHT 92.27 kg Body [...] on filedocumented in this encounter Care Teams Pharmaceutical Botanist Relationship Specialty Start Date End Date Taina Lyles, STUMP SHOOTER [address] [place] [address] PCP - General Nurse Practitioner 06/15/23 documented as of this encounter
--- OUTSIDE RECORDS SUMMARY | 2025-08-25 15:19 | XMS_ITS | Encounter Summary ---
Author Organization [employer] ([place], [place], [place], [place]) Address [address] [place] [address] Care Team Providers Care Suction Drum Drier Operator Name Role Phone Taina Lyles EXECUTIVE PRODUCER PROMOS Primary Care Provider [phone] Encounter Details Date Type Department Care Team (Late st Contact Info) Description 07/02/2021 Transcribed Document [facility] [place] Family Medicine [address] [place] [address] ProviderWilliam MD [address] [place], [place] [id number] Social History Tobacco Use Types Packs/Day Years [...] Reyes MD - 07/02/2021 10:50 AM CDT [place] [id number] MONIKA ZIMMERYE :1960 Visit Time:07/01/2021 Your Visit [...] from ER. Where: [address] [place] [phone]- Business (1) Follow Up with CORINA ABAD [...] range between ( 1.0 and 7.0 ) [place] #: 0.66 K/uL -- Normal range between ( 0.24 and 0.82 ) Eos #: 0.49 K/uL -- Normal range between ( 0.04 and 0.54 ) [place] %: 8.2 % -- Normal range between [...] safe for you. General instructions ??? Take jzkx-cfq-sdjcdmx and prescription medicines only as told by [...] provider. Document Revised: 05/10/2019 Document Reviewed: 05/10/2019 [employer] Patient Education ?? 2020 psicofxp. Aspirin and Your Heart Aspirin is a [...] The two forms of aspirin are: ? Gyo-yqrwhfh-csqjxu.This type of aspirin does not have a coating and is absorbed quickly. This type of aspirin also comes in a chewable form. ? Enteric-coated. This type of aspirin has a coating that releases the medicine very slowly. Enteric-coated aspirin might cause less stomach upset than bwl-lvyxdoa-ewcbxy aspirin. This type of aspirin should not [...] provider. Document Revised: 09/07/2018 Document Reviewed: 09/07/2018 [employer] Patient Education ?? 2020 psicofxp. Acute Pain, Adult Acute pain is a [...] these instructions at home: Medicines ??? Take uxxy-szr-rofpzve and prescription medicines only as told by [...] is severe. ? Do not take other byor-yua-xdhicjn pain medicines in addition to prescription pain [...] and fresh fruits and vegetables. ? Take lmuv-bds-hyvlzcc or prescription medicines. ? Limit foods that [...] you are no longer ill. ??? Take xmcx-aow-sbyndql and prescription medicines only as told by [...] provider. Document Revised: 03/24/2020 Document Reviewed: 03/24/2020 [employer] Patient Education ?? 2020 psicofxp. Coronary Angiogram A coronary angiogram is an [...] including vitamins, herbs, eye drops, creams, and wvfu-ylr-zdctpfq medicines. ??? Any problems you or family [...] do not normally take it. ??? Taking fxil-pfn-bxarvtl medicines, vitamins, herbs, and supplements. General instructions [...] provider. Document Revised: 05/29/2020 Document Reviewed: 05/29/2020 Else[employer]istic Patient Education ?? 2020 [employer]. Nonspecific Chest Pain, Pediatric Chest pain [...] instructions at home: General instructions ??? Give asnf-rbp-iikqpiz and prescription medicines only as told by [...] and is usually not dangerous. ??? Give jqdm-zlg-cpevyje and prescription medicines only as told by [...] provider. Document Revised: 06/08/2019 Document Reviewed: 06/08/2019 [employer]istic Patient Education ?? 2020 [employer]. Nonspecific Chest Pain Chest pain can [...] these instructions at home: Medicines ??? Take wesz-cyy-nypjmdm and prescription medicines only as told by [...] Eating a heart-healthy diet. A diet and clinical operations specialist (dietitian) can help you to learn [...] provider. Document Revised: 05/10/2019 Document Reviewed: 05/10/2019 [employer] Patient Education ?? 2020 [employer]. Emergency Awareness and Preventative Care STROKE [...] Assistance with quitting is available by contacting 8-529-ZXFJNOW. This is a free resource providing counseling, [...] was given the opportunity to ask questions. Patient/Public Health Analyst Name: Patient/Public Health Analyst Signature: Relationship to Patient: Clinician/Hospital Public Health Analyst Signature: Please Provide a Telephone Number Where You Can Be Reached: Is it Permissible To Leave a Message? Date: documented in this encounter Plan of Treatment Not on file documented as of this encounter Visit Diagnoses Not on filedocumented in this encounter Care Teams Suction Drum Drier Operator Relationship Specialty Start Date End Date Taina Lyles, EXECUTIVE PRODUCER PROMOS [address] [place] [address] PCP - General Nurse Practitioner 06/15/23 documented as of this encounter
--- OUTSIDE RECORDS SUMMARY | 2025-08-25 15:19 | XMS_ITS ---
Author Organization [facility] Address [address] [place] [address] Care Team Providers Care Shine Worker Name Role Phone Lea Fernando Unavailable [phone] Rachel Ray PROJECT MANAGER INDUSTRIAL Unavailable [phone] Alvarez Zimmer MD Primary Care Provider [phone] Tamera Isabel TRAVEL MANAGER Unavailable UnavailShaniqua Lomeli TRAVEL MANAGER Unavailable Unavailable Transitional Care Management Status:Closed (Closed) Start date:07/10/2025 Enrollment reason:Identified using hospital discharge data End date:08/09/2025 Close reason:Patient graduated Overview This episode type is for outpatient care managers enrolling patients in the [facility] Transitional Care Management program. Continued Care and Services Coordination
--- OUTSIDE RECORDS SUMMARY | 2025-08-25 15:19 | XMS_ITS | Encounter Summary ---
Author Organization [facility] Address [address] [place] [address] Care Team Providers Care Purchasing Assistant Name Role Phone Lea Fernando Unavailable [phone] Rachel Ray RESPIRATORY DIRECTOR Unavailable [phone] Alvarez Zimmer MD Primary Care Provider [phone] Tamera Isabel DAIRY POWDER MIXER OPERATOR Unavailable UnavailShaniqua Lomeli LPN Unavailable Unavailable Encounter Details Date Type Department Care Team (Late st Contact Info) Description 08/17/2025 Orders Only External Location [address] [place] [address] Provider, External Social History Tobacco Use Types [...] often do you attend [facility] or restorationism services? Patient unable to [...] in a assisted (including now)? No 08/19/2025 [facility] Utilities Answer Date Recorded In the [...] drink first t kennedy in the morning (EYE-UNDER BASTER) to steady your nerves or to get [...] Description 08/26/2025 1:00 PM EDT Office Visit [facility] Endocrinology [address] [place] [address] Miranda Hobson, RESPIRATORY DIRECTOR [address] [place] [address] 08/29/2025 10:00 AM EDT Appointment [facility] Interventional Radiology [address] [place] [address] 08/29/2025 11:00 AM EDT Appointment [facility] Interventional Radiology [address] [place] [address] 09/03/2025 8:40 AM EDT Office Visit Replaced by [facility] [address] [facility], [address] [place] [address] Lillie Pritchard MD [address] [place] [address] 09/05/2025 10:00 AM EDT Appointment [facility] Interventional Radiology [address] [place] [address] 09/05/2025 11:00 AM EDT Appointment [facility] Interventional Radiology [address] [place] [address] 09/17/2025 9:45 AM EDT Clinical Support [facility] [place] [address] [place] [address] 09/17/2025 10:30 AM EDT Social Work [facility] [place] [address] [facility] [address] [place] [address] Lea Reilly, [place] [address] 09/17/2025 11:20 AM EDT Office Visit [facility] [place] [address] [facility] [address] [place] [address] Octavia Herrera, PA [address] [place] [address] documented as of this encounter Procedures Procedure Name Priority Date/Time Associated Diagnosis Comments CT THORACIC OUTSIDE IMAGES 08/17/2025 4:39 PM EDT documented in this encounter Results * CT THORACIC OUTSIDE IMAGES (08/17/2025 4:39 PM EDT) Anatomical Region Laterality Modality Computed [...] as of this encounter Care Teams Purchasing Assistant Relationship Specialty Start Date End Date Alvarez Zimmer MD [address] [place] [phone] PCP - General Family Medicine 12/07/24 Lea Fernando [address] [place] [address] School Standards Coach Endocrinology 08/29/24 Rachel Ray APRN [address] [place] [address] Nurse Practitioner Gastroenterology 09/24/24 Tamera Isabel LPN VALUE-BASED TRANSFORMATION PROGRAM Licensed Practical Nurse 05/29/25 Shaniqua Trevino LPN TCM Nurse 08/21/25 documented as of this encounter
--- OUTSIDE RECORDS SUMMARY | 2025-08-25 15:19 | XMS_ITS | Encounter Summary ---
Author Organization [facility] Address [address] [place] [address] Care Team Providers Care Clarification Operator Name Role Phone Lea Fernando Unavailable [phone] Rachel Ray INFORMATION SECURITY ANALYST Unavailable [phone] Alvarez Zimmer MD Primary Care Provider [phone] Tamera Isabel TOOL PLANER SET UP OPERATOR Unavailable Unavailabl e Encounter Details Date Type Department Care Team (Latest Contact Info) Description 08/20/2025 Travel Social History Tobacco Use Types Packs/Day [...] do you attend [facility] or yarsanism services? Never 05/29/2025 Do you [...] more drinks on one occasion? Never 06/25/2025 [facility] of Occupat ional [facility] - Occupational Stress Questionnaire Answer Date [...] living in a usp (including now)? No 08/19/2025 [facility] Utilities Answer Date Recorded In the [...] drink first t kennedy in the morning (EYE-HALL WORKER) to steady your nerves or to [...] Description 08/26/2025 1:00 PM EDT Office Visit [facility] Endocrinology [address] [place] [address] Miranda Hobson, INFORMATION SECURITY ANALYST [address] [place] [address] 08/29/2025 10:00 AM EDT Appointment [facility] Interventional Radiology [address] [place] [address] 08/29/2025 11:00 AM EDT Appointment [facility] Interventional Radiology [address] [place] [address] 09/03/2025 8:40 AM EDT Office Visit [facility] [address] [facility], [address] [place] [address] Lillie Pritchard MD [address] [place] [address] 09/05/2025 10:00 AM EDT Appointment [facility] Inter[facility] Radiology [address] [place] [address] 09/05/2025 11:00 AM EDT Appointment [facility] Inter[facility]iology [address] [place] [address] 09/17/2025 9:45 AM EDT Clinical Support [facility] [place] [address] [place] [address] 09/17/2025 10:30 AM EDT Social Work [facility] [place] [address] [place] [address] Lea Reilly, [place] [address] 09/17/2025 11:20 AM EDT Office Visit [facility] [place] [address] [place] [address] Octavia Herrera, PA [address] [place] [address] documented as of this encounter Visit Diagnoses [...] documented as of this encounter Care Teams Clarification Operator Relationship Specialty Start Date End Date Alvarez Zimmer MD [address] [place] [address] PCP - General Family Medicine 12/07/24 Lea Fernando [address] [place] [address] Shipping Order Clerk Endocrinology 08/29/24 Rachel Ray APRN [address] [facility] [address] [place] [address] Nurse Practitioner Gastroenterology 09/24/24 Tamera Isabel LPN VALUE-BASED TRANSFORMATION PROGRAM Licensed Practical Nurse 05/29/25 documented as of this encounter
--- OUTSIDE RECORDS SUMMARY | 2025-08-25 15:19 | XMS_ITS ---
Author Organization [facility] Address [address] [place] [address] Care Team Providers Care Hematologist Oncologist Name Role Phone Lea Fernando Unavailable [phone] Rachel Ray ABSTRACTOR Unavailable [phone] Alvarez Zimmer MD Primary Care Provider [phone] Tamera Isabel COMPO CONVEYOR OPERATOR Unavailable UnavailShaniqua Lomeli COMPO CONVEYOR OPERATOR Unavailable Unavailable LINK Program Status:Closed (Closed) Start date:06/26/2025 Enrollment date:06/26/2025 End date:06/26/2025 Close reason:Not Eligible Overview Patient identified for LINK program. Following chart review, patient determined to be ineligible based on program criteria. (Transplant) Continued Care and Services Coordination
--- OUTSIDE RECORDS SUMMARY | 2025-08-25 15:19 | XMS_ITS | Encounter Summary ---
Author Organization [employer] ([place], [place], [place], [place]) Address [address] [place] [address] Care Team Providers Care Metal Fence Erector Name Role Phone Taina Lyles PROBLEM MANAGER Primary Care Provider [phone] Encounter Details Date Type Department Care Team (Late st Contact Info) Description 07/01/2021 Transcribed Document [facility] [facility] [place] [address] ProviderWilliam MD [address] [place], [place] [id number] Social History Tobacco Use Types Packs/Day Years [...] - 07/01/2021 5:10 PM CDT Patient: MONIKA ZIMMRE Age: 60 years Sex: Female : 1960 [...] EDT Height Source Stated Height Entry Format [place] Height/Length, NEPALESE (ft) 5 ft Height/Length NEPALESE 6 Inch CLINICALHEIGHT 167.64 cm [place] Body Weight 58.88 kg Weight Source, ED Standing scale Weight Entry Format [place] Weight [place] lb 203 lb CLINICALWEIGHT 92.27 kg Body [...] % LOW Lymph # 1.03 K/uL LOW [place] % 8.2 % [place] # 0.66 K/uL Eos % 6.1 % [...] on filedocumented in this encounter Care Teams Metal Fence Erector Relationship Specialty Start Date End Date Taina Lyles, ADRI [address] [place] [address] PCP - General Nurse Practitioner 06/15/23 documented as of this encounter
--- OUTSIDE RECORDS SUMMARY | 2025-08-25 15:19 | XMS_ITS | Encounter Summary ---
Author Organization [email or web address] ([place], [place], [place], [place]) Address [address] [place] [address] Care Team Providers Care Stucco Applicator Name Role Phone Taina Lyles ADRI Primary Care Provider Encounter Details Date Type Department Care Team (Late st Contact Info) Description 09/09/2020 Transcribed Document [facility] [place] [address] [place] [address] ProviderWilliam MD [address] [place] [address] Social History Tobacco Use Types Packs/Day Years [...] On: 09/09/2020 15:09 EDT by KEITH TAVERA jv baseball coach Process Patient Disposition : Discharge Personal Belongings [...] on filedocumented in this encounter Care Teams Stucco Applicator Relationship Specialty Start Date End Date Taina Lyles, ADRI [address] [place] [address] PCP - General Nurse Practitioner 06/15/23 documented as of this encounter
--- OUTSIDE RECORDS SUMMARY | 2025-08-25 15:19 | XMS_ITS ---
Author Organization [facility] Address [address] [place] [address] Care Team Providers Care Wholesale Manager Name Role Phone Lea Fernando Unavailable [phone] Rachel Ray PRODUCT EVANGELIST Unavailable [phone] Alvarez Zimmer MD Primary Care Provider [phone] Tamera Isabel [employer] MEMBERSHIP ADVISORS Unavailable UnavailShaniqua Lomeli [employer] MEMBERSHIP ADVISORS Unavailable Unavailable Transplant Episode Liver Candidate 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) Care Team Name Role Phone Fax Email Wilma Arana RN Liver Coordinator [phone] N/A N/A Lea Reilly LCSW Harvest Field Ticketer [phone] N/A N/A Gerson Arora MD Surgeon [phone] N/A Wilma Howard APRN Primary Care Provider [phone] N/A Rachel Ray APRN Referring Physician [phone] N/A Events Pre-Transplant Referred: 09/24/2024 Evaluation began: 10/08/2024 Committee: 01/28/2025 Center waitlisted: 02/19/2025 Appointments (07/26/2025 - 09/25/2025) When With Visit Type Description 09/03/2025 [facility] J Luis - Brady Pritchard Transition of Care 09/17/2025 Transplant LAB 09/17/2025 Transplant - Carmel Reilly Social Wo rk - Office Visit 09/17/2025 Transplant - Nicole Herrera Office Vi sit - Transplant
--- OUTSIDE RECORDS SUMMARY | 2025-08-25 15:19 | XMS_ITS | Encounter Summary ---
Author Organization [employer] ([place], [place], [place], [place]) Address [address] [place] [address] Care Team Providers Care Hand Spring Repairer Helper Name Role Phone Taina Lyles ADRI Primary Care Provider [phone] Encounter Details Date Type Department Care Team (Late st Contact Info) Description 07/02/2021 Transcribed Document [facility] [place] [address] [place] [address] ProviderWilliam MD [address] [place], [place] [address] Social History Tobacco Use Types Packs/Day Years [...] - 07/02/2021 12:33 EDT Electronically signed by [facility], [facility] Conversion Utilities And Maintenance Supervisor Cerner at 03/07/2023 9:50 AM CDT documented in this encounter Plan of Treatment Not on file documented as of this encounter Visit Diagnoses Not on filedocumented in this encounter Care Teams Hand Spring Repairer Helper Relationship Specialty Start Date End Date Taina Lyles, MOLD MAKING PLASTICS SHEETS SUPERVISOR [address] [place] [address] PCP - General Nurse Practitioner 06/15/23 documented as of this encounter
--- OUTSIDE RECORDS SUMMARY | 2025-08-25 15:19 | XMS_ITS | Encounter Summary ---
Author Organization [facility] Address [address] [place] [address] Care Team Providers Care Rerecording Mixer Name Role Phone Lea Fernando Unavailable [phone] Rachel Ray STONEWORK TRACER Unavailable [phone] Alvarez Zimmer MD Primary Care Provider [phone] Tamera Isabel DOT COMPLIANCE SPECIALIST Unavailable UnavailShaniqua Lomeli LPN Unavailable Unavailable Encounter Details Date Type Department Care Team (Late st Contact Info) Description 08/17/2025 Orders Only External Location [address] [place] [address] Provider, External Social History Tobacco Use Types [...] week 01/10/2025 How often do you attend [facility] or taoist services? Patient unable to answer [...] 06/25/2025 [facility] of Occupat [...] living in a fci (including now)? No 08/19/2025 [facility] Utilities Answer Date Recorded In the [...] drink first t kennedy in the morning (EYE-HVAC SPECIALIST) to steady your nerves or to [...] Description 08/26/2025 1:00 PM EDT Office Visit [facility] Endocrinology [address] [place] [address] Miranda Hobson, STONEWORK TRACER [address] [place] [address] 08/29/2025 10:00 AM EDT Appointment [facility] [address] [place] [address] 08/29/2025 11:00 AM EDT Appointment [facility] [address] [place] [address] 09/03/2025 8:40 AM EDT Office Visit [facility] [address] [facility], [address] [place] [address] Lillie Pritchard MD [address] [place] [address] 09/05/2025 10:00 AM EDT Appointment [facility] [address] [place] [address] 09/05/2025 11:00 AM EDT Appointment [facility] [address] [place] [address] 09/17/2025 9:45 AM EDT Clinical Support [facility] Transplant [place] [address] [place] [address] 09/17/2025 10:[address] [facility] [place] [address] [facility] [address] [place] [address] Lea Reilly, [place] [address] 09/17/2025 11:20 AM EDT Office Visit [facility] [place] [address] [facility] [address] [place] [address] Octavia Herrera, PA [address] [place] [address] documented as of this encounter Procedures Procedure [...] documented as of this encounter Care Teams Rerecording Mixer Relationship Specialty Start Date End Date Alvarez Zimmer MD [address] [place] [address] PCP - General Family Medicine 12/07/24 Lea Fernando [address] [place] [address] Residential Mortgage Manager Endocrinology 08/29/24 Rachel Ray APRN [address] [place] [address] Nurse Practitioner Gastroenterology 09/24/24 Tamera Isabel LPN VALUE-BASED TRANSFORMATION PROGRAM Licensed Practical Nurse 05/29/25 Shaniqua Trevino LPN TCM Nurse 08/21/25 documented as of this encounter
--- OUTSIDE RECORDS SUMMARY | 2025-08-25 15:19 | XMS_ITS | Encounter Summary ---
Author Organization [employer] ([place], [place], [place], [place]) Address [address] [place] [address] Care Team Providers Care Lead Setter Name Role Phone Taina Lyles ADRI Primary Care Provider [phone] Encounter Details Date Type Department Care Team (Late st Contact Info) Description 07/02/2021 Transcribed Document [facility] [place] Family Medicine [address] [place] [address] ProviderWilliam MD [address] [place], [place] [address] Social History Tobacco Use Types Packs/Day Years [...] EDT Electronically signed by Maddie Meyers Conversion Coil Rewind Machine Operator Certhierry at 03/07/2023 9:35 AM CDT documented in this encounter Plan of Treatment Not on file documented as of this encounter Visit Diagnoses Not on filedocumented in this encounter Care Teams Lead Setter Relationship Specialty Start Date End Date Taina Lyles, TECHNOLOGY OFFICER [address] [place] [address] PCP - General Nurse Practitioner 06/15/23 documented as of this encounter
--- OUTSIDE RECORDS SUMMARY | 2025-08-25 15:20 | XMS_ITS | Encounter Summary ---
Author Organization [employer] ([place], [place], [place], [place]) Address [address] [place] [address] Care Team Providers Care Shaper Machine Hand Name Role Phone Taina Lyles APRN Primary Care Provider [phone] Encounter Details Date Type Department Care Team (Late st Contact Info) Description 09/08/2020 Transcribed Document [facility] [place] Family Medicine [address] [place] [address] ProviderWilliam MD [address] [place], [place] [address] Social History Tobacco Use Types Packs/Day Years [...] & time 09/08/2020 15:30:00, Voice recognition / coat joiner technology used for some documentation in this [...] Tab, Oral, QAM, 30 Tab, 0 Refill(s) [place] 7.5 mg-325 mg oral tablet: 1 Tab, [...] EDT Height Source Estimated Height Entry Format [place] Height/Length, SALVADOREAN (ft) 5 ft Height/Length SALVADOREAN 5 Inch CLINICALHEIGHT 165.1 cm [place] Body Weight 56.59 kg Weight Source, ED Critical estimated dosing weight Weight Entry Format [place] Weight Belgian lb 190 lb CLINICALWEIGHT 86.36 kg Body [...] Orders Ordered Blood Pressure: Cardiac Monitoring: ED director of rooms: EKG: Place in Observation: Pulse Oximetry Continuous [...] % 41.0 % Lymph # 3.73 K/uL [place] % 9.5 % [place] # 0.86 K/uL [place] Eos % 2.9 [...] pressure), Interventions hemodynamic management, Case review medical affairs director. Performed by: self. Heart Score Heart [...] on filedocumented in this encounter Care Teams Shaper Machine Hand Relationship Specialty Start Date End Date Taina Lyles, ADRI [address] [place] [address] PCP - General Nurse Practitioner 06/15/23 documented as of this encounter
--- OUTSIDE RECORDS SUMMARY | 2025-08-25 15:20 | XMS_ITS | Encounter Summary ---
Author Organization [facility] Address [address] [place] [address] Care Team Providers Care Cotton Dispatcher Name Role Phone Lea Fernando Unavailable [phone] Rachel Ray PROSECUTING ATTORNEY Unavailable [phone] Alvraez Zimmer MD Primary Care Provider [phone] Tamera Isabel MYSQL DEVELOPER Unavailable Unavailabl Monique Garay LPN Unavailable Unavailable [...] 06/25/2025 [facility] of Occupat ional [...] first t kennedy in the morning (EYE-TECHNICAL PHOTOGRAPHER) to steady your nerves or to get [...] Description 08/26/2025 1:00 PM EDT Office Visit [facility] Endocrinology [address] [place] [address] Miranda Hobson, PROSECUTING ATTORNEY [address] [place] [address] 08/29/2025 10:00 AM EDT Appointment [facility] Inter[facility] Radiology [address] [place] [address] 08/29/2025 11:00 AM EDT Appointment [facility] Inter[facility] Radiology [address] [place] [address] 09/03/2025 8:40 AM EDT Office Visit [address], [address] [place] [address] Lillie Pritchard MD [address] [place] [address] 09/05/2025 10:00 AM EDT Appointment [facility]iology [address] [place] [address] 09/05/2025 11:00 AM EDT Appointment [facility]iology [address] [place] [address] 09/17/2025 9:45 AM EDT Clinical Support [facility] Transplant [place] [address] [place] [address] 09/17/2025 10:30 AM EDT Social Work [facility] Transplant [place] [address] [place] [address] Lea Reilly, [place] [address] 09/17/2025 11:20 AM EDT Office Visit [facility] Transplant [place] [address] [place] [address] Octavia Herrera, PA [address] [place] [address] documented as of this encounter Visit Diagnoses [...] documented as of this encounter Care Teams Cotton Dispatcher Relationship Specialty Start Date End Date Alvarez Zimmer MD [address] [place] [address] PCP - General Family Medicine 12/07/24 Lea Fernando [address] [facility] [address] [place] [address] Electronic Sales And Service Technician Endocrinology 08/29/24 Rachel Ray APRN [address] [place] [address] Nurse Practitioner Gastroenterology 09/24/24 Tamera Isabel, MG VALUE-BASED TRANSFORMATION PROGRAM Licensed Practical Nurse 05/29/25 Monique Tapia LPN VALUE-BASED [place] [address] TCM Nurse 07/10/25 08/09/25 documented as of this encounter
--- OUTSIDE RECORDS SUMMARY | 2025-08-25 15:20 | XMS_ITS | Encounter Summary ---
Author Organization [employer] ([place], [place], [place], [place]) Address [address] [place] [address] Care Team Providers Care Clinical Study Manager Name Role Phone Taina Lyles Carmel RUSH Primary Care Provider [phone] Encounter Details Date Type Department Care Team (Late st Contact Info) Description 09/08/2020 Transcribed Document [facility] [place] [address] [place] [address] ProviderWilliam MD [address] [place], [place] [id number] Social History Tobacco Use Types Packs/Day Years [...] Reyes MD - 09/08/2020 3:25 PM CDT Edwards Suicide Severity Rating Scale (C-SSRS) Entered On: 09/08/2020 16:35 EDT Performed On: 09/08/2020 16:31 EDT by Angelina Cuello RN Edwards Suicide Severity Rating Scale (C-SSRS) CSSRS Past [...] on filedocumented in this encounter Care Teams Clinical Study Manager Relationship Specialty Start Date End Date Taina Lyles, INSTITUTIONAL COOK [address] [place] [address] PCP - General Nurse Practitioner 06/15/23 documented as of this encounter
--- OUTSIDE RECORDS SUMMARY | 2025-08-25 15:20 | XMS_ITS | Encounter Summary ---
Author Organization [facility] Address [address] [place] [address] Care Team Providers Care Embossing Press Operator Name Role Phone Lea Fernando Unavailable [phone] Rachel Ray SHOE STITCHER Unavailable [phone] Alvarez Zimmer MD Primary Care Provider [phone] Tamera Isabel TALENT PARTNER Unavailable Unavailabl Monique Garay LPN Unavailable Unavailable [...] more drinks on one occasion? Never 06/25/2025 [facility] of Occupat ional [...] drink first t kennedy in the morning (EYE-BRAND ADVISOR) to steady your nerves or to get [...] Description 08/26/2025 1:00 PM EDT Office Visit [facility] Endocrinology [address] [place] [address] Miranda Hobson, SHOE STITCHER [address] [facility] [address] [place] [address] 08/29/2025 10:00 AM EDT Appointment [facility] Inter[facility] Radiology [address] [place] [address] 08/29/2025 11:00 AM EDT Appointment [facility] Interventional Radiology [address] [place] [address] 09/03/2025 8:40 AM EDT Office Visit [facility] [address] [place] [address] Lillie Pritchard MD [address] [place] [address] 09/05/2025 10:00 AM EDT Appointment [facility] Interventional Radiology [address] [place] [address] 09/05/2025 11:00 AM EDT Appointment [facility] Inter[facility] Radiology [address] [place] [address] 09/17/2025 9:45 AM EDT Clinical Support [facility] Transplant [place] [address] [place] [address] 09/17/2025 10:30 AM EDT Social Work [facility] Transplant [place] [address] [facility] [address] [place] [address] Lea ReillyRome[place], [place] [address] 09/17/2025 11:20 AM EDT Office Visit [facility] Trans[facility] [place] [address] [facility] [address] [place] [address] Octavia Herrera, PA [address] [facility] [address] [place] [address] documented as of this encounter Visit Diagnoses [...] documented as of this encounter Care Teams Embossing Press Operator Relationship Specialty Start Date End Date Alvarez Zimmer MD [address] [place] [address] PCP - General Family Medicine 12/07/24 Lea Fernando [address] [facility] [address] [place] [address] Manufacturing Project Engineer Endocrinology 08/29/24 Rachel Ray, SHOE STITCHER [address] [place] [address] Nurse Practitioner Gastroenterology 09/24/24 Tamera Isabel LPN VALUE-BASED TRANSFORMATION PROGRAM Licensed Practical Nurse 05/29/25 Monique Tapia LPN VALUE-BASED [place] [address] TCM Nurse 07/10/25 08/09/25 documented as of this encounter
--- OUTSIDE RECORDS SUMMARY | 2025-08-25 15:20 | XMS_ITS | Encounter Summary ---
Author Organization [facility] Address [address] [place] [address] Care Team Providers Care Dock Superintendent Name Role Phone Lea Fernando Unavailable [phone] Rachel Ray E M ASSEMBLER Unavailable [phone] Alvarez Zimmer MD Primary Care Provider [phone] Tamera Isabel MELTER SUPERVISOR OPEN HEARTH FURNACE Unavailable Unavailabl Shaniqua Centeno MELTER SUPERVISOR OPEN HEARTH FURNACE Unavailable Unavailable Reason for Visit * Reason Onset Date Comments HCN - Patient Message 08/16/2025 Encounter Details Date Type Department Care Team (Late st Contact Info) Description 08/16/2025 Telephone [facility] Endocrinology [address] [place] [address] Sharif Moreno, DPNicole [address] [facility] [address] [place] [address] HCN - Patient Message Social [...] week 01/10/2025 How often do you attend [facility] ch or buddhism services? Patient unable to answer 01/10/2025 Do you belong to any clubs o r organizations such as adventism groups, [employer], [employer]s or athleFarmivore groups, or school groups? Patient unable to [...] week 05/29/2025 How often do you attend [facility] ch or buddhism services? Never 05/29/2025 Do you belong to any clubs o r organizations such as adventism groups, [employer], [employer] or athletic groups, or school groups? No [...] drinks on one occasion? Never 06/25/2025 [facility] of Occupat ional Health [...] any time in the past 12 m [facility], were you homeless or living in a correction (including now)? No 08/19/2025 [facility] Utilities Answer Date Recorded In the [...] drink first t kennedy in the morning (EYE-INSURANCE POLICY ISSUE CLERK) to steady your nerves or to [...] Neyda Cosme documented as of this encounter Miscellaneous Notes * Telephone Encounter - Kierra Carroll - 08/16/2025 11:20 AM EDT Patient Phone Message Reason for Call: Pt is requesting a call to rs.. Best contact number and optimal time of day to reach caller: [phone] Note: Please do not reply to this [...] [facility] Endocrinology [address] [place] [address] Miranda Hobson, E M ASSEMBLER [address] [facility] [address] [place] [address] 08/29/2025 10:00 AM EDT Appointment [facility] Interventional Radiology [address] [place] [address] 08/29/2025 11:00 AM EDT Appointment [facility] Interventional Radiology [address] [place] [address] 09/03/2025 8:40 AM EDT Office Visit [facility] [address] [facility], [address] [place] [address] Lillie Pritchard MD [address] [place] [address] 09/05/2025 10:00 AM EDT Appointment [facility] Interventional Radiology [address] [place] [address] 09/05/2025 11:00 AM EDT Appointment [facility] Interventional Radiology [address] [place] [address] 09/17/2025 9:45 AM EDT Clinical Support [facility] Transplant [place] [address] [facility] [address] [place] [address] 09/17/2025 10:30 AM EDT Social Work [facility] Transplant [place] [address] [facility] [address] [place] [address] Lea Reilly, [place], [place] [address] 09/17/2025 11:20 AM EDT Office Visit [facility] Transplant [place] [address] [facility] [address] [place] [address] Octavia Herrera, PA [address] [facility] [address] [place] [address] documented as of this encounter [...] documented as of this encounter Care Teams Dock Superintendent Relationship Specialty Start Date End Date Alvarez Zimmer MD [address] [place] [address] PCP - General Family Medicine 12/07/24 Lea Fernando [address] [facility] [address] [place] [address] Elastic Attacher Zigzag Endocrinology 08/29/24 Rachel Ray APRN [address] [facility] [address] [place] [address] Nurse Practitioner Gastroenterology 09/24/24 Tamera Isabel LPN VALUE-BASED TRANSFORMATION PROGRAM Licensed Practical Nurse 05/29/25 Shaniqua Trevino LPN TCM Nurse 08/21/25 documented as of this encounter
--- OUTSIDE RECORDS SUMMARY | 2025-08-25 15:20 | XMS_ITS | Encounter Summary ---
Author Organization [employer] ([place], [place], [place], [place]) Address [address] [place] [address] Care Team Providers Care Analyst Microbiology Lab Name Role Phone Taina Lyles ADRI Primary Care Provider [phone] Encounter Details Date Type Department Care Team (Late st Contact Info) Description 09/08/2020 Transcribed Document [facility] [address] [place] [address] ProviderWilliam MD [address] [place], [place] [id number] Social History Tobacco Use Types Packs/Day Years [...] On: 09/08/2020 15:26 EDT by RUSTY HART PRODUCT SAFETY TECHNICAL ASSISTANT Triage Across the Room Chief Complaint : Pt reports Discomfront in chest that began yesterday states tingling in left arm Triage Date/Time : 09/08/2020 15:26 EDT RUSTY HART RN - 09/08/2020 15:26 EDT DCP GENERIC CODE Tracking Acuity : 2 - Emergent Tracking Group : [facility] ED [facility] RUSTY HART RN - [...] Problems(Active) ADD (attention deficit disorder) (SNOMED CT :5864990390 ) Name of Problem: ADD (attention deficit disorder) ; Recorder: AZALEA ALBRIGHT RN; Confirmation: Confirmed ; Classification: Patient Stated ; Code: 8507692886 ; Contributor System: HYGIEIA ; Last Updated: 01/11/2017 14:23 EST ; Life Cycle Date: 01/11/2017 ; Life Cycle Status: Active ; Vocabulary: SNOMED CT Anxiety (SNOMED CT :7070664513 ) Name of Problem: Anxiety ; Recorder: AZALEA ALBRIGHT RN; Confirmation: Confirmed ; Classification: Patient Stated ; Code: 9436550600 ; Contributor System: HYGIEIA ; Last Updated: 01/11/2017 14:22 EST ; Life Cycle Date: 01/11/2017 ; Life Cycle Status: Active ; Vocabulary: SNOMED CT Arthritis (SNOMED CT :3213368 ) Name of Problem: Arthritis ; Recorder: LANNY BELLO RN; Confirmation: Confirmed ; Classification: Medical ; Code: 0385489 ; Contributor System: [email or web address] ; Last Updated: 09/11/2015 14:10 EDT ; Life Cycle Date: 09/11/2015 ; Life Cycle Status: Active ; Vocabulary: SNOMED CT bilateral knee pain (SNOMED CT :64072830 ) Name of Problem: bilateral knee pain ; Recorder: LANNY BELLO RN; Confirmation: Confirmed ; Classification: Medical ; Code: 94786991 ; Contributor System: [email or web address] ; Last Updated: 08/12/2017 10:18 EDT ; Life Cycle Date: 09/11/2015 ; Life Cycle Status: Active ; Vocabulary: SNOMED CT Chronic depression (SNOMED CT :419667098 ) Name of Problem: Chronic depression ; Recorder: AZALEA ALBRIGHT RN; Confirmation: Confirmed ; Classification: Patient Stated ; Code: 608307128 ; Contributor System: PowerChart ; Last Updated: 01/11/2017 14:23 EST ; Life Cycle Date: 01/11/2017 ; Life Cycle Status: Active ; Vocabulary: SNOMED CT Diabetes (SNOMED CT :302108143 ) Name of Problem: Diabetes ; Recorder: LANNY BELLO RN; Confirmation: Confirmed ; Classification: Medical ; Code: 013887912 ; Contributor System: [email or web address] ; Last Updated: 09/11/2015 14:10 EDT ; Life Cycle Date: 09/11/2015 ; Life Cycle Status: Active ; Vocabulary: SNOMED CT GERD (gastroesophageal reflux disease) (SNOMED CT :764145205 ) Name of Problem: GERD (gastroesophageal reflux disease) ; Recorder: LANNY BELLO RN; Confirmation: Confirmed ; Classification: Medical ; Code: 263692696 ; Contributor System: [email or web address] ; Last Updated: 09/11/2015 14:11 EDT ; Life Cycle Date: 09/11/2015 ; Life Cycle Status: Active ; Vocabulary: SNOMED CT H/O syncope (SNOMED CT :0733148175 ) Name of Problem: H/O syncope ; Recorder: AZALEA ALBRIGHT RN; Confirmation: Confirmed ; Classification: Patient Stated ; Code: 4860908986 ; Contributor System: PowerChart ; Last Updated: 01/11/2017 14:29 EST ; Life Cycle Date: 01/11/2017 ; Life Cycle Status: Active ; Vocabulary: SNOMED CT History of recurrent UTIs (SNOMED CT :787939982 ) Name of Problem: History of recurrent UTIs ; Recorder: AZALEA ALBRIGHT RN; Confirmation: Confirmed ; Classification: Patient Stated ; Code: 850675924 ; Contributor System: PowerChart ; Last Updated: 01/11/2017 14:22 EST ; Life Cycle Date: 01/11/2017 ; Life Cycle Status: Active ; Vocabulary: SNOMED CT Hyperlipidemia (SNOMED CT :74354247 ) Name of Problem: Hyperlipidemia ; Recorder: LANNY BELLO RN; Confirmation: Confirmed ; Classification: Medical ; Code: 16057563 ; Contributor System: [email or web address] ; Last Updated: 09/11/2015 14:10 EDT ; Life Cycle Date: 09/11/2015 ; Life Cycle Status: Active ; Vocabulary: SNOMED CT Renal insufficiency (SNOMED CT :7564008301 ) Name of Problem: Renal insufficiency ; Recorder: AZALEA ALBRIGHT RN; Confirmation: Confirmed ; Classification: Patient Stated ; Code: 1812647078 ; Contributor System: PowerChart ; Last Updated: 01/11/2017 14:22 EST ; Life Cycle Date: 01/11/2017 ; Life Cycle Status: Active ; Vocabulary: SNOMED CT right carpal tunnel (SNOMED CT :16072906 ) Name of Problem: right carpal tunnel ; Recorder: LANNY BELLO RN; Confirmation: Confirmed ; Classification: Medical ; Code: 17452446 ; Contributor System: PowerChart ; Last Updated: 09/02/2017 10:07 EDT ; Life Cycle Date: 09/11/2015 ; Life Cycle Status: Active ; Vocabulary: SNOMED CT Right tennis elbow (SNOMED CT :3399496754 ) Name of Problem: Right tennis elbow ; Recorder: LANNY BELLO RN; Confirmation: Confirmed ; Classification: Medical ; Code: 3806792410 ; Contributor System: PowerChart ; Last Updated: 05/21/2019 14:33 EDT ; Life Cycle Status: Active ; Vocabulary: SNOMED CT ; Comments: 09/11/2015 14:11 - LANNY BELLO RN recent diagnosis RLS (restless legs syndrome) (SNOMED CT :26051018 ) Name of Problem: RLS (restless legs syndrome) ; Recorder: LANNY BELLO RN; Confirmation: Confirmed ; Classification: Medical ; Code: 74389768 ; Contributor System: PowerChart ; Last Updated: 09/11/2015 14:33 EDT ; Life Cycle Date: 09/11/2015 ; Life Cycle Status: Active ; Vocabulary: SNOMED CT sleep apnea with Cpap (SNOMED CT :411361171 ) Name of Problem: sleep apnea with Cpap ; Recorder: LANNY BELLO RN; Confirmation: Confirmed ; Classification: Medical ; Code: 312236891 ; Contributor System: [email or web address] ; Last Updated: 08/12/2017 11:32 EDT ; Life Cycle Date: 09/11/2015 ; Life Cycle Status: Active ; Vocabulary: SNOMED CT Stress incontinence (SNOMED CT :231188501 ) Name of Problem: Stress incontinence ; Recorder: LANNY BELLO RN; Confirmation: Confirmed ; Classification: Medical ; Code: 205175910 ; Contributor System: PowerChart ; Last Updated: 09/11/2015 14:12 EDT ; Life Cycle Date: 09/11/2015 ; Life Cycle Status: Active ; Vocabulary: SNOMED CT Diagnoses(Active) Chest pain Date: 09/08/2020 ; Diagnosis Type: Reason For Visit ; Confirmation: Complaint of ; Clinical Dx: Chest pain ; Classification: Medical ; Clinical Service: Emergency medicine ; Code: PNED ; Probability: 0 ; Diagnosis Code: [id number] ED Height and Weight Height Source : Estimated Height Entry Format : Sanders Height, Feet : 5 ft(Converted to: 152 cm, 60 Inch) Height, Inches : 5 Inch(Converted to: 0 ft 5 Inch, 12.70 cm) Clinical Height : 165.1 cm Weight Source, ED : Critical estimated dosing weight Weight Entry Format : Sanders Weight, Pounds : 190 lb Clinical Dosing Weight : 86.36 kg Body Surface Area (BSA) : 1.94 m2 Body Mass Index : 31.7 kg/m2 (HI) [place] Body Weight (IBW) : 56.59 kg RUSTY HART, RN - 09/08/2020 15:26 EDT documented in this encounter Plan of Treatment Not on file documented as of this encounter Visit Diagnoses Not on filedocumented in this encounter Care Teams Analyst Microbiology Lab Relationship Specialty Start Date End Date Taina Lyles, BRIDGE MECHANIC [address] [place] [address] PCP - General Nurse Practitioner 06/15/23 documented as of this encounter
--- OUTSIDE RECORDS SUMMARY | 2025-08-25 15:20 | XMS_ITS | Encounter Summary ---
Author Organization [employer] ([place], [place], [place], [place]) Address [address] [place] [address] Care Team Providers Care Burial Vault Setter Name Role Phone Taina Lyles ADRI Primary Care Provider [phone] Encounter Details Date Type Department Care Team (Late st Contact Info) Description 07/01/2021 Transcribed Document [facility] [place] Family Medicine [address] [place] [address] ProviderWilliam MD [address] [place], [place] [address] Social History Tobacco Use Types Packs/Day Years [...] : Low risk (0) [place] Interventions : [place] precautions for safety used Medina Lai RN - 07/01/2021 17:31 EDT documented in this encounter Plan of Treatment Not on file documented as of this encounter Visit Diagnoses Not on filedocumented in this encounter Care Teams Burial Vault Setter Relationship Specialty Start Date End Date Taina Lyles, POLICE SURGEON [address] [place] [address] PCP - General Nurse Practitioner 06/15/23 documented as of this encounter
--- OUTSIDE RECORDS SUMMARY | 2025-08-25 15:20 | XMS_ITS | Encounter Summary ---
Author Organization [facility] Address [address] [place] [address] Care Team Providers Care Assigner Name Role Phone Kassie Lea Tricia Unavailable [phone] Rachel Ray FURNACE OPERATOR Unavailable [phone] Taina Lyles FURNACE OPERATOR Primary Care Provider [phone] Monique Tapia SEAT JOINER Unavailable Unavailable Alvarez Zimmer MD Primary Care Provider [phone] Shaniqua Trevino SEAT JOINER Unavailable Unavailable Tamera Isabel SEAT JOINER Unavailable UnavailAlina Bedolla RN Unavailable Unavailab Monique Che LPN Unavailable Unavailable Shaniqua Trevino LPN Unavailable Unavailable Encounter Details Date Type Department Care Team (Late st Contact Info) Description 10/24/2024 Ophth Exam [facility] [address] [place] [address] Serene Barragan MD [address] [place] [address] Social History Tobacco Use Types [...] and Family Not on file 10/16/2024 Attends [employer] Not on file 10/16 Active Member [...] in a prison (including now)? Yes 08/29/2024 Housing Stability Vital [...] living in a prison (including now)? No 10/16/2024 CAGE ASSESSMENT Answer [...] drink first t kennedy in the morning (EYE-CHANGE ATTENDANT) to steady your nerves or to [...] No Risk Indicated 10/26/2024 8:00 PM Rochelle Stafford, RN * Question Answer Date of Assessment Author 1. Wish to be (Past 1 Month) No 024 8:00 PM EST Rochelle Wallace, RN 2. Non-Specific Active Suici liz Thoughts (Past 1 Month) No 10/26/2024 8:00 PM EST Rochelle Wallace, RN 6. Suicidal Behavior (Lifetime) No 8:00 PM EST Rochelle Wallace, RN documented as of this encounter Plan of Treatment Upcoming Encounters Date Type Department Care Team (Late st Contact Info) Description 08/26/2025 1:00 PM EDT Office Visit [facility] Endocrinology [address] [place] [address] Miranda Hobson, FURNACE OPERATOR [address] [facility] [address] [place] [address] 08/29/2025 10:00 AM EDT Appointment [facility] [address] [place] [address] 08/29/2025 11:00 AM EDT Appointment [facility]iology [address] [place] [address] 09/03/2025 8:40 AM EDT Office Visit [facility] [address] [place] [address] Lillie Pritchard MD [address] [place] [address] 09/05/2025 10:00 AM EDT Appointment [facility] [address] [place] [address] 09/05/2025 11:00 AM EDT Appointment [facility] [address] [place] [address] 09/17/2025 9:45 AM EDT Clinical Support [facility] [place] [address] [address] 09/17/2025 10:30 AM EDT Social Work [facility] [place] [address] [phone] Lea Reilly, [place] [address] 09/17/2025 11:20 AM EDT Office Visit [facility] [address] [place] [address] Octavia Herrera, PA [address] [place] [address] documented as of this encounter [...] documented as of this encounter Care Teams Assigner Relationship Specialty Start Date End Date Taina Lyles, FURNACE OPERATOR [address] [place] [address] [place] [address] PCP - General 10/01/24 12/06/24 Alvarez Zimmer MD [address] [place] [address] PCP - General Family Medicine 12/07/24 Lea Fernando [address] [facility] [address] [place] [address] Studio Musician Endocrinology 08/29/24 Rachel Ray, FURNACE OPERATOR [address] [place] [address] Nurse Practitioner Gastroenterology 09/24/24 WestportMonique dubois LPN VALUE-BASED [place] [address] TCM Nurse 11/28/24 12/28/24 Shaniqua Trevino LPN TCM Nurse 01/15/25 02/14/25 Tamera Isabel LPN VALUE-BASED TRANSFORMATION PROGRAM Licensed Practical Nurse 05/29/25 Alina Lovett, RN [facility] Registered Nurse 06/26/25 06/26/25 Monique Tapia LPN VALUE-[place] [address] TCM Nurse 07/10/25 08/09/25 Shaniqua Trevino LPN TCM Nurse 08/21/25 documented as of this encounter
--- OUTSIDE RECORDS SUMMARY | 2025-08-25 15:20 | XMS_ITS | Encounter Summary ---
Author Organization [employer] ([place], [place], [place], [place]) Address [address] [place] [address] Care Team Providers Care Eye Surgeon Name Role Phone Taina Lyles APRN Primary Care Provider [phone] Encounter Details Date Type Department Care Team (Late st Contact Info) Description 01/23/2019 Transcribed Document [facility] [place] Family Medicine [facility] [place] [address] ProviderWilliam MD [address] [place] [address] Social History Tobacco Use Types Packs/Day Years Used Date Smoking Tobacco: Never Assessed Comments Unknown Sex and Gender Information Value Date Recorded Sex Assigned at Not on file Legal Sex Female 12:21 PM CDT Gender Identity Not on file Sexual Orientation Not on file documented as of this encounter Miscellaneous Notes * Cerner Conversion Note - William Reyes MD - 01/23/2019 5:18 PM KEY HOLDER [address] [address] HISTORY AND PHYSICAL PATIENT IDENTIFICATION: MONIKA ZIMMER (Female - 1960) ACCOUNT / UNIT NUMBER: [id number] / [id number] PRIMARY CARE PHYSICIAN: WILMA HOWARD APRN PATIENT LOCATION: [facility] 300-11 ADMIT DATE / TIME: 01/23/19 1051 DISCHARGE DATE / TIME: DICTATED: 01/23/19 1218 by DANIEL DICKERSON TRANSCRIBED: 01/23/19 1343 by PS IMPORTED: 01/23/19 1344 CC: WILMA HOWARD APRN; DANIEL DICKERSON PA-C; GLENN LAWRENCE\R\ [facility] Original Dictated By: MARIA GUADALUPE [...] in bed. She is in observation the [facility] floor under the care of the [...] 0.4 mg sublingual for chest pain. 16. [place] 10/325 mg 1-2 tabs q.4 h. as [...] LABORATORIES AND DIAGNOSTICS: Reviewed from 01/08/2019 at [facility] showing a GFR of 57. Normal [...] rep ct ivnm] Electronically signed by Luigi, [facility] Conversion Card Sorter Cerner at 02/21/2023 1:44 PM CDT documented in this encounter Plan of Treatment Not on file documented as of this encounter Visit Diagnoses Not on filedocumented in this encounter Care Teams Eye Surgeon Relationship Specialty Start Date End Date Taina Lyles, ADRI [address] [place] [address] PCP - General Nurse Practitioner 06/15/23 documented as of this encounter
--- OUTSIDE RECORDS SUMMARY | 2025-08-25 15:20 | XMS_ITS | Encounter Summary ---
Author Organization [facility] Address [address] [place] [address] Care Team Providers Care Package Wrapper Name Role Phone Lea Fernando Unavailable [phone] Rachel Ray OPTICAL ASSISTANT Unavailable [phone] Alvarez Zimmer MD Primary Care Provider [phone] Tamera Isabel LOG STACKER OPERATOR Unavailable Unavailabl e Encounter Details Date [...] week 05/29/2025 How often do you attend [facility] or jain services? Never 05/29/2025 Do you [...] more drinks on one occasion? Never 06/25/2025 [facility] of Occupat ional [facility] - Occupational Stress Questionnaire [...] drink first t kennedy in the morning (EYE-PROPELLANT CHARGE LOADER) to steady your nerves or to get [...] Description 08/26/2025 1:00 PM EDT Office Visit [facility] Endocrinology [address] [place] [address] Miranda Hboson, OPTICAL ASSISTANT [address] [facility] [address] [place] [address] 08/29/2025 10:00 AM EDT Appointment [facility] [address] [place] [address] 08/29/2025 11:00 AM EDT Appointment [facility]iology [address] [place] [address] 09/03/2025 8:40 AM EDT Office Visit [facility] Medicine [address] [place] [address] Lillie Pritchard MD [address] [place] [address] 09/05/2025 10:00 AM EDT Appointment [facility]iology [address] [place] [address] 09/05/2025 11:00 AM EDT Appointment [facility] [address] [place] [address] 09/17/2025 9:45 AM EDT Clinical Support [facility] [place] [address] [place] [facility] [address] [place] [address] 09/17/2025 10:[address] [facility] [address] [facility] [place] [address] Lea Reilly, [place], [place] [id number] 09/17/2025 11:20 AM EDT Office Visit [facility] [address] [facility] [address] [place] [address] Octavia Herrera, PA [address] [facility] [address] [place] [address] documented as of this encounter Visit Diagnoses [...] documented as of this encounter Care Teams Package Wrapper Relationship Specialty Start Date End Date Alvarez Zimmer MD [address] [place] [address] PCP - General Family Medicine 12/07/24 Lea Fernando [address] [facility] [address] [place] [address] Director Information Endocrinology 08/29/24 Rachel Ray, ADRI [address] [facility] [address] [place] [address] Nurse Practitioner Gastroenterology 09/24/24 Tamera Isabel LPN VALUE-BASED TRANSFORMATION PROGRAM Licensed Practical Nurse 05/29/25 documented as of this encounter
--- OUTSIDE RECORDS SUMMARY | 2025-08-25 15:20 | XMS_ITS | Encounter Summary ---
Author Organization [facility] Address [address] [place] [address] Care Team Providers Care Electrical Continuity Tester Name Role Phone Lea Fernando Unavailable [phone] Rachel Ray GUEST SERVICES LEAD Unavailable [phone] Alvarez Zimmer MD Primary Care Provider [phone] Tamera Isabel CLINICAL ASSESSMENT MANAGER Unavailable Unavailabl Monique Garay LPN Unavailable Unavailable [...] 06/25/2025 [facility] of Occupat ional [...] first t kennedy in the morning (EYE-SALES REPRESENTATIVE DOOR TO DOOR) to steady your nerves or to get [...] Description 08/26/2025 1:00 PM EDT Office Visit [facility] Endocrinology [address] [place] [address] Miranda Hobson, GUEST SERVICES LEAD [address] [facility] [address] [place] [address] 08/29/2025 10:00 AM EDT Appointment [facility] [address] [place] [address] 08/29/2025 11:00 AM EDT Appointment [facility] [address] [place] [address] 09/03/2025 8:40 AM EDT Office Visit [facility] [address] [place] [address] Lillie Pritchard MD [address] [place] [address] 09/05/2025 10:00 AM EDT Appointment [facility] [address] [place] [address] 09/05/2025 11:00 AM EDT Appointment [facility] [address] [place] [address] 09/17/2025 9:45 AM EDT Clinical Support [facility] [place] [address] [place] [address] 09/17/2025 10:30 AM EDT Social Work [facility] [place] [address] [facility] [address] [place] [address] [place], [place] [id number] 09/17/2025 11:20 AM EDT Office Visit [facility] [place] [address] [facility] [address] [place] [address] Octavia Herrera, PA [address] [facility] [address] [place] [address] documented as of this encounter Visit Diagnoses [...] documented as of this encounter Care Teams Electrical Continuity Tester Relationship Specialty Start Date End Date Alvarez Zimmer MD [address] [place] [address] PCP - General Family Medicine 12/07/24 Lea Fernando [address] [facility] [address] [place] [address] Commercial Real Estate Paralegal Endocrinology 08/29/24 Rachel Ray, GUEST SERVICES LEAD [address] [place] [address] Nurse Practitioner Gastroenterology 09/24/24 Tamera Isabel LPN VALUE-BASED TRANSFORMATION PROGRAM Licensed Practical Nurse 05/29/25 Monique Tapia LPN VALUE-BASED [place] [address] TCM Nurse 07/10/25 08/09/25 documented as of this encounter
--- OUTSIDE RECORDS SUMMARY | 2025-08-25 15:20 | XMS_ITS | Encounter Summary ---
Author Organization [employer] ([place], [place], [place], [place]) Address [address] [place] [address] Care Team Providers Care Supervisor Cereal Name Role Phone Taina Lyles ADRI Primary Care Provider [phone] Encounter Details Date Type Department Care Team (Late st Contact Info) Description 09/08/2020 Transcribed Document [facility] [place] Family [place] [address] [place] [address] ProviderWilliam MD [address] [place] [address] Social History Tobacco Use Types [...] 09/08/2020 16:21:00 EDT morphine,4mg IV Push,Right [employer] [place] Pain Assessment Pain Assessment : Follow-up assessment Angelina Cuello, PARK - 09/08/2020 17:54 EDT documented in this encounter Plan of Treatment Not on file documented as of this encounter Visit Diagnoses Not on filedocumented in this encounter Care Teams Supervisor Cereal Relationship Specialty Start Date End Date Taina Lyles, CARPENTER FORM [address] [place] [address] PCP - General Nurse Practitioner 06/15/23 documented as of this encounter
--- OUTSIDE RECORDS SUMMARY | 2025-08-25 15:20 | XMS_ITS | Encounter Summary ---
Author Organization [facility] Address [address] [place] [address] Care Team Providers Care Management Associate Name Role Phone Lea Fernando Unavailable [phone] Rachel Ray ENGINEERING ASSISTANT Unavailable [phone] Alvarez Zimmer MD Primary Care Provider [phone] Tamera Isabel GOLF SALES MANAGER Unavailable Unavailabl Monique Garay LPN Unavailable [...] Never 06/25/2025 [facility]at [facility] - [...] drink first t kennedy in the morning (EYE-GENETICS NURSE) to steady your nerves or to [...] Description 08/26/2025 1:00 PM EDT Office Visit [facility] Endocrinology [address] [place] [address] Miranda Hobson, ENGINEERING ASSISTANT [address] [facility] [address] [place] [address] 08/29/2025 10:00 AM EDT Appointment [facility] Interventional Radiology [address] [place] [address] 08/29/2025 11:00 AM EDT Appointment [facility] Interventional Radiology [address] [place] [address] 09/03/2025 8:40 AM EDT Office Visit [facility] [address], [address] [place] [address] Lillie Pritchard MD [address] [place] [address] 09/05/2025 10:00 AM EDT Appointment [facility] Interventional Radiology [address] [place] [address] 09/05/2025 11:00 AM EDT Appointment [facility] Interventional Radiology [address] [place] [address] 09/17/2025 9:45 AM EDT Clinical Support [facility] Trans[facility] [place] [address] [place] [address] 09/17/2025 10:30 AM EDT Social Work [facility] [place] [address] [facility] [address] [place] [address] [place], [place] [address] 09/17/2025 11:20 AM EDT Office Visit [facility] [place] [address] [facility] [address] [place] [address] Octavia Herrera, PA [address] [facility] [address] [place] [address] documented as of this encounter Visit Diagnoses [...] documented as of this encounter Care Teams Management Associate Relationship Specialty Start Date End Date Alvarez Zimmer MD [address] [place] [address] PCP - General Family Medicine 12/07/24 Lea Fernando 2195 [facility] 125 [place] [address] Welder Machine Operator Endocrinology 08/29/24 Rachel Ray, ENGINEERING ASSISTANT [address] [place] [address] Nurse Practitioner Gastroenterology 09/24/24 Tamera Isabel LPN VALUE-BASED TRANSFORMATION PROGRAM Licensed Practical Nurse 05/29/25 Monique Tapia LPN VALUE-BASED [place] [address] TCM Nurse 07/10/25 08/09/25 documented as of this encounter
--- OUTSIDE RECORDS SUMMARY | 2025-08-25 15:20 | XMS_ITS | Encounter Summary ---
Author Organization [employer] ([place], [place], [place], [place]) Address [address] [place] [address] Care Team Providers Care Hotel Lobby Concierge Name Role Phone Taina Lyles POUCH MAKING MACHINE OPERATOR Primary Care Provider [phone] Encounter Details Date Type Department Care Team (Late st Contact Info) Description 09/08/2020 Transcribed Document [facility] [place] [address] [place] [address] ProviderWilliam MD [address] [place], [place] [address] Social History Tobacco Use Types Packs/Day Years [...] Tab, Oral, QAM, 30 Tab, 0 Refill(s) [place] 7.5 mg-325 mg oral tablet: 1 Tab, [...] list: All Problems Anxiety / SNOMED CT 7599003211 / Confirmed Arthritis / SNOMED CT 9080052 / Confirmed ADD (attention deficit disorder) / SNOMED CT 8243414454 / Confirmed right carpal tunnel / SNOMED CT 57631174 / Confirmed Chronic depression / SNOMED CT 555943688 / Confirmed Diabetes / SNOMED CT 424004987 / Confirmed GERD (gastroesophageal reflux disease) / SNOMED CT 369859045 / Confirmed Stress incontinence / SNOMED CT 413793842 / Confirmed History of recurrent UTIs / SNOMED CT 450462096 / Confirmed H/O syncope / SNOMED CT 0662825344 / Confirmed Hyperlipidemia / SNOMED CT 21290237 / Confirmed bilateral knee pain / SNOMED CT 50467248 / Confirmed Right tennis elbow / SNOMED CT 8855780030 / Confirmed recent diagnosis Renal insufficiency / SNOMED CT 4805627697 / Confirmed RLS (restless legs syndrome) / SNOMED CT 28412431 / Confirmed sleep apnea with Cpap / SNOMED CT 848767218 / Confirmed, Active Problems (16) ADD (attention [...] EDT Height Source Estimated Height Entry Format [place] Height/Length, SERBIAN (ft) 5 ft Height/Length SERBIAN 5 Inch CLINICALHEIGHT 165.1 cm [place] Body Weight 56.59 kg Weight Source, ED Critical estimated dosing weight Weight Entry Format [place] Weight Maldivian lb 190 lb CLINICALWEIGHT 86.36 kg Body [...] to OP workup Electronically signed by Luigi, [facility] Conversion Test Bore Helper Cerner at 03/07/2023 9:46 AM CDT documented in this encounter Plan of Treatment Not on file documented as of this encounter Visit Diagnoses Not on filedocumented in this encounter Care Teams Hotel Lobby Concierge Relationship Specialty Start Date End Date Taina Lyles, POUCH MAKING MACHINE OPERATOR [address] [place] [address] PCP - General Nurse Practitioner 06/15/23 documented as of this encounter
--- OUTSIDE RECORDS SUMMARY | 2025-08-25 15:20 | XMS_ITS | Encounter Summary ---
Author Organization [employer] ([place], [place], [place], [place]) Address [address] [place] [address] Care Team Providers Care Practice Business Asst Name Role Phone Taina Lyles ADRI Primary Care Provider [phone] Encounter Details Date Type Department Care Team (Late st Contact Info) Description 05/01/2019 Transcribed Document [facility] [place] [address] [place] [address] ProviderWilliam MD [address] [place] [address] Social History Tobacco Use Types Packs/Day Years [...] moderate sleepiness and scores 16/24 in the [place] Sleepiness Scale. She does have insomnia for which she is using trazodone with good benefit. OTHER MEDICAL PROBLEMS: Include diabetes mellitus, obesity, and depression. MEDICATIONS: 1. Azelastine. 2. Magnesium. 3. Bupropion. 4. Venlafaxine. 5. Multivitamin. 6. Ranitidine. 7. Carvedilol. 8. Oxybutynin. 9. Plaquenil. 10. Humulin R. 11. Baclofen. 12. [place]. 13. Prednisone. 14. Atorvastatin. 15. Humulin. 16. [...] Dr. Wilma Howard Electronically signed by Luigi [facility] Conversion Facility Manager Histology Cerner at 03/07/2023 9:43 AM CDT documented in this encounter Plan of Treatment Not on file documented as of this encounter Visit Diagnoses Not on filedocumented in this encounter Care Teams Practice Business Asst Relationship Specialty Start Date End Date Taina Lyles, DISTRIBUTION DISPATCHER [address] [place] [address] PCP - General Nurse Practitioner 06/15/23 documented as of this encounter
--- OUTSIDE RECORDS SUMMARY | 2025-08-25 15:20 | XMS_ITS | Encounter Summary ---
Author Organization [employer] ?[employer]?? ([place], [place], [place], [place]) Address [address] [place] [address] Care Team Providers Care Business Machine Mechanic Name Role Phone Taina Lyles APRN Primary Care Provider [phone] Encounter Details Date Type Department Care Team (Late st Contact Info) Description 01/23/2019 Transcribed Document [facility] [place] [facility] [place] [address] ProviderWilliam MD [address] [place] [address] Social History Tobacco Use Types Packs/Day Years Used Date Smoking Tobacco: Never Assessed Comments Unknown Sex and Gender Information Value Date Recorded Sex Assigned at Not on file Legal Sex Female 12:21 PM CDT Gender Identity Not on file Sexual Orientation Not on file documented as of this encounter Miscellaneous Notes * [employer]ner Conversion Note - William Reyes MD - 01/23/2019 2:56 PM RELATIONS COORDINATOR [address] [address] OPERATIVE REPORT PATIENT IDENTIFICATION: MONIKA ZIMMER (Female - 1960) ACCOUNT / UNIT NUMBER: [id number] / [id number] PRIMARY CARE PHYSICIAN: ERYN PARKINSON APRN PATIENT LOCATION: [facility] 300-11 ADMIT DATE / TIME: 01/23/19 1051 DISCHARGE DATE / TIME: DICTATED: 01/23/19 0956 by VOLODYMYR VILLARREAL TRANSCRIBED: 01/23/19 1107 by PS IMPORTED: 01/23/19 1108 CC: ERYN PARKINSON APRN; FRANK LI; VOLODYMYR VILLARREAL\R\ [facility] Original DATE OF PROCEDURE: 01/23/2019 [...] made anterior vaginal wall incision and used [place] and freed this away from the urethra [...] rep ct ivnm] Electronically signed by Luigi [facility] Conversion Traffic Observer Cerner at 02/21/2023 1:44 PM CDT documented in this encounter Plan of Treatment Not on file documented as of this encounter Visit Diagnoses Not on filedocumented in this encounter Care Teams Business Machine Mechanic Relationship Specialty Start Date End Date Taina Lyles APRN [address] [place] [address] PCP - General Nurse Practitioner 06/15/23 documented as of this encounter
--- OUTSIDE RECORDS SUMMARY | 2025-08-25 15:20 | XMS_ITS | Encounter Summary ---
Author Organization [facility] Address [address] [place] [address] Care Team Providers Care Spinning And Winding Supervisor Name Role Phone Lea Fernando Unavailable [phone] Rachel Ray ROLL WEIGHER Unavailable [phone] Alvarez Zimmer MD Primary Care Provider [phone] Tamera Isabel MANAGER ENVIRONMENTAL HEALTH AND SAFETY Unavailable Unavailabl Monique Garay LPN Unavailable Unavailable [...] more drinks on one occasion? Never 06/25/2025 [facility] of Occupat ional Health [...] drink first t kennedy in the morning (EYE-GASOLINE LOCOMOTIVE CRANE OPERATOR) to steady your nerves or to [...] Description 08/26/2025 1:00 PM EDT Office Visit [facility] Endocrinology [address] [place] [address] Miranda Hobson, ROLL WEIGHER [address] [facility] [address] [place] [address] 08/29/2025 10:00 AM EDT Appointment [facility] Interventional Radiology [address] [place] [address] 08/29/2025 11:00 AM EDT Appointment [facility] Interventional Radiology [address] [place] [address] 09/03/2025 8:40 AM EDT Office Visit [facility] [address], [address] [place] [address] Lillie Pritchard MD [address] [place] [address] 09/05/2025 10:00 AM EDT Appointment [facility] Interventional Radiology [address] [place] [address] 09/05/2025 11:00 AM EDT Appointment [facility] Interventional Radiology [address] [place] [address] 09/17/2025 9:45 AM EDT Clinical Support [facility] Transplant [place] [address] [place] [address] 09/17/2025 10:30 AM EDT Social Work [facility] [place] [address] [facility] [address] [place] [address] [place], [place] [address] 09/17/2025 11:20 AM EDT Office Visit [facility] [place] [address] [facility] [address] [place] [address] Octavia Herrera, PA [address] [facility] [address] [place] [address] documented as of this encounter Visit Diagnoses [...] as of this encounter Care Teams Spinning And Winding Supervisor Relationship Specialty Start Date End Date Alvarez Zimmer MD [address] [place] [address] PCP - General Family Medicine 12/07/24 Lea Fernando 2[address] [facility] 125 [place] [address] Rn Intake Endocrinology 08/29/24 Rachel Ray, ROLL WEIGHER [address] [place] [address] Nurse Practitioner Gastroenterology 09/24/24 Tamera Isabel LPN VALUE-BASED TRANSFORMATION PROGRAM Licensed Practical Nurse 05/29/25 Monique Tapia LPN VALUE-BASED [place] [address] TCM Nurse 07/10/25 08/09/25 documented as of this encounter
--- OUTSIDE RECORDS SUMMARY | 2025-08-25 15:20 | XMS_ITS | Encounter Summary ---
Author Organization [employer] ([place], [place], [place], [place]) Address [address] [place] [address] Care Team Providers Care Baseball Winder Name Role Phone Taina Lyles APRN Primary Care Provider [phone] Encounter Details Date Type Department Care Team (Late st Contact Info) Description 10/05/2019 Transcribed Document [facility] [place] [facility] [place] [address] ProviderWilliam MD [address] [place] [address] Social History Tobacco Use Types Packs/Day Years Used Date Smoking Tobacco: Never Assessed Comments Unknown Sex and Gender Information Value Date Recorded Sex Assigned at Not on file Legal Sex Female 12:21 PM CDT Gender Identity Not on file Sexual Orientation Not on file documented as of this encounter Miscellaneous Notes * Cerner Conversion Note - William Reyes MD - 10/05/2019 3:36 PM SUPERVISOR AIRCRAFT CLEANING [address] [address] OPERATIVE REPORT PATIENT IDENTIFICATION: MONIKA ZIMMER (Female - 1960) ACCOUNT / UNIT NUMBER: [id number] / [id number] PRIMARY CARE PHYSICIAN: ERYN PARKINSON APRN PATIENT LOCATION: [facility] [place] DATE / TIME: 10/05/19 0723 DISCHARGE [...] for flow rate and bladder ultrasound PVR. /[id number] Dictated By: VOLODYMYR VILLARREAL E-Signed By: ALDO [id number] [id number] [\R\ rep ct labl] [\R\ rep ct ivnm] Medical Disclaimer: This report is to be considered preliminary until reviewed and signed. documented in this encounter Plan of Treatment Not on file documented as of this encounter Visit Diagnoses Not on filedocumented in this encounter Care Teams Baseball Winder Relationship Specialty Start Date End Date Taina Lyles, ADRI [address] [place] [address] PCP - General Nurse Practitioner 06/15/23 documented as of this encounter
--- OUTSIDE RECORDS SUMMARY | 2025-08-25 15:20 | XMS_ITS | Encounter Summary ---
Author Organization [employer] ([place], [place], [place], [place]) Address [address] [place] [address] Care Team Providers Care Computer Peripheral Equipment Operator Name Role Phone Taina Lyles APRN Primary Care Provider [phone] Encounter Details Date Type Department Care Team (Late st Contact Info) Description 01/24/2019 Transcribed Document [facility] [place] [facility] [place] [address] ProviderWilliam MD [address] [place] [address] Social History Tobacco Use Types Packs/Day Years Used Date Smoking Tobacco: Never Assessed Comments Unknown Sex and Gender Information Value Date Recorded Sex Assigned at Not on file Legal Sex Female 12:21 PM CDT Gender Identity Not on file Sexual Orientation Not on file documented as of this encounter Miscellaneous Notes * Cerner Conversion Note - William Reyes MD - 01/24/2019 7:43 PM NURSE LICENSED PRACTICAL [address] [address] DISCHARGE SUMMARY PATIENT IDENTIFICATION: MONIKA ZIMMER (Female - 1960) ACCOUNT / UNIT NUMBER: [id number] / [id number] PRIMARY CARE PHYSICIAN: ERYN HOWARD APRN PATIENT LOCATION: [facility] 300-11 ADMIT DATE / TIME: [...] U-500 could be resumed on discharge. Continue [employer] diet. 3. Coronary artery disease/dyslipidemia, [...] Tylenol 650 q.4 h. as needed. 2. [place] 10 mg 1-2 tabs q.4 h. as [...] ivnm] Electronically signed by Maddie Meyers Conversion Tube Building Machine Operator Cerner at 02/21/2023 1:44 PM CDT documented in this encounter Plan of Treatment Not on file documented as of this encounter Visit Diagnoses Not on filedocumented in this encounter Care Teams Computer Peripheral Equipment Operator Relationship Specialty Start Date End Date Taina Lyles, CUT OFF [employer] [address] [place] [address] PCP - General Nurse Practitioner 06/15/23 documented as of this encounter
--- OUTSIDE RECORDS SUMMARY | 2025-08-25 15:20 | XMS_ITS | Encounter Summary ---
Author Organization [employer] ([place], [place], [place], [place]) Address [address] [place] [address] Care Team Providers Care Exercise Physiologist Name Role Phone Taina Lyles ADRI Primary Care Provider [phone] Encounter Details Date Type Department Care Team (Late st Contact Info) Description 09/08/2020 Transcribed Document [facility] [place] [address] [place] [address] ProviderWilliam MD [address] [place], [place] [address] Social History Tobacco Use Types Packs/Day Years [...] on filedocumented in this encounter Care Teams Exercise Physiologist Relationship Specialty Start Date End Date Taina Lyles, EYEGLASS FRAMES POLISHER [address] [place] [address] PCP - General Nurse Practitioner 06/15/23 documented as of this encounter
--- OUTSIDE RECORDS SUMMARY | 2025-08-25 15:20 | XMS_ITS | Encounter Summary ---
Author Organization [employer] ([place], [place], [place], [place]) Address [address] [place] [address] Care Team Providers Care Loom Fixer Name Role Phone Taina Lyles ADRI Primary Care Provider [phone] Encounter Details Date Type Department Care Team (Late st Contact Info) Description 09/08/2020 Transcribed Document [facility] [place] [address] [place] [address] ProviderWilliam MD [address] [place], [place] [id number] Social History Tobacco Use Types Packs/Day Years [...] Communication Barrier : None Primary Language : Armenian Any Spiritual/Cultural Needs or Requests : No [...] Rhythm : Regular Nail Bed Color : Hodge Angelina Cuello RN - 09/08/2020 17:54 EDT documented in this encounter Plan of Treatment Not on file documented as of this encounter Visit Diagnoses Not on filedocumented in this encounter Care Teams Loom Fixer Relationship Specialty Start Date End Date Taina Lyles, INTERNET AND E BUSINESS PROJECT MANAGER [address] [place] [address] PCP - General Nurse Practitioner 06/15/23 documented as of this encounter
--- OUTSIDE RECORDS SUMMARY | 2025-08-25 15:21 | XMS_ITS | Encounter Summary ---
Author Organization [facility] Address [address] [place] [address] Care Team Providers Care Advanced Practice Psychiatric Nurse Name Role Phone Lea Fernando Unavailable [phone] Rachel Ray MOLDER SWEEP Unavailable [phone] Alvarez Zimmer MD Primary Care Provider [phone] Tamera Isabel PARAMEDIC Unavailable Unavailabl Monique Garay PARAMEDIC Unavailable Unavailable Reason for Visit * Reason Comments TCM Encounter Details Date Type Department Care Team (Late st Contact Info) Description 07/19/2025 Patient Outreach POPULATION HEALTH [address] [facility], [address] [place] [address] Jeaneth Oscar LPN TCM Social [...] 01/10/2025 How often do you attend [facility] or [facility] services? Patient unable to answer 01/10/2025 Do you belong to any clubs o r organizations such as zoroastrian groups, [employer], [employer] or athletic groups, or school groups? [...] occasion? Never 06/25/[address] [facility] - Occupational Stress Questionnaire Answer [...] drink first t kennedy in the morning (EYE-FUNCTIONAL TESTER) to steady your nerves or to [...] see if she was still in the [facility] and she stated yes, [...] Description 08/26/2025 1:00 PM EDT Office Visit [facility] Endocrinology [facility] [place] [phone] Miranda Hobson, MOLDER SWEEP [address] [place] [address] 08/29/2025 10:00 AM EDT Appointment [facility] Interventional Radiology [address] [place] [address] 08/29/2025 11:00 AM EDT Appointment [facility] Interventional Radiology [address] [place] [address] 09/03/2025 8:40 AM EDT Office Visit [facility] [address] [facility], [address] [place] [address] Lillie Pritchard MD [address] [place], [place] [address] 09/05/2025 10:00 AM EDT Appointment [facility] Interventional Radiology [address] [place] [address] 09/05/2025 11:00 AM EDT Appointment [facility] Interventional Radiology [address] [place] [address] 09/17/2025 9:45 AM EDT Clinical Support [facility] [place] [address] [place] [address] 09/17/2025 10:30 AM EDT Social Work [facility] [place] [address] [place] [address] Lea Reilly, [place] [id number] 09/17/2025 11:20 AM EDT Office Visit [facility] [place] [address] [place] [address] Octavia Herrera, PA [address] [facility] [address] [place] [address] documented as of this encounter Visit Diagnoses [...] documented as of this encounter Care Teams Advanced Practice Psychiatric Nurse Relationship Specialty Start Date End Date Alvarez Zimmer MD [address] [place] [address] PCP - General Family Medicine 12/07/24 Lea Fernando [address] [facility] [address] [place] [address] Hotel Superintendent Endocrinology 08/29/24 Rachel Ray, MOLDER SWEEP [address] [facility] [address] [place] [address] Nurse Practitioner Gastroenterology 09/24/24 Tamera Isabel LPN VALUE-BASED TRANSFORMATION PROGRAM Licensed Practical Nurse 05/29/25 Monique Tapia LPN VALUE-BASED [place] [address] TCM Nurse 07/10/25 08/09/25 documented as of this encounter
--- OUTSIDE RECORDS SUMMARY | 2025-08-25 15:21 | XMS_ITS | Encounter Summary ---
Author Organization [facility] Address [address] [place] [address] Care Team Providers Care Recreation Therapy Director Name Role Phone Lea Fernando Unavailable [phone] Rachel Ray DYE HOUSE WHEEL OPERATOR Unavailable [phone] Alvarez Zimmer MD Primary Care Provider [phone] Tamera Isabel TELEPHOTO INSTALLER Unavailable Unavailabl Monique Garay LPN Unavailable Unavailable [...] you attend chur ch or mu-ism services? Never 05/29/2025 Do you [...] occasion? Never 06/25/2025 [facility] of Occupat ional Health - [...] in the past [address] [facility], were you homeless or [...] drink first t kennedy in the morning (EYE-COMMUNITY ENGAGEMENT REPRESENTATIVE) to steady your nerves or to [...] Description 08/26/2025 1:00 PM EDT Office Visit [facility] Endocrinology [address] [place] [address] Miranda Hobson, DYE HOUSE WHEEL OPERATOR [address] [facility] [address] [place] [address] 08/29/2025 10:00 AM EDT Appointment [facility] Inter[facility] Radiology [address] [place] [address] 08/29/2025 11:00 AM EDT Appointment [facility] Inter[facility] Radiology [address] [place] [address] 09/03/2025 8:40 AM EDT Office Visit [facility] [address], [address] [place] [address] Lillie Pritchard MD [address] [place] [address] 09/05/2025 10:00 AM EDT Appointment [facility] Interventional Radiology [address] [place] [address] 09/05/2025 11:00 AM EDT Appointment [facility] Inter[facility] Radiology [address] [place] [address] 09/17/2025 9:45 AM EDT Clinical Support [facility] [place] [address] [place] [address] 09/17/2025 10:30 AM EDT Social Work [facility] [place] [address] [facility] [address] [place] [address] [place], [place] [phone] 09/17/2025 11:20 AM EDT Office Visit [facility] [place] [address] [facility] [address] [place] [address] Octavia Herrera, PA [address] [facility] [address] [place] [address] documented as of this encounter Visit Diagnoses [...] documented as of this encounter Care Teams Recreation Therapy Director Relationship Specialty Start Date End Date Alvarez Zimmer MD [address] [place] [address] PCP - General Family Medicine 12/07/24 Lea Fernando 2[address] [facility] 125 [place] [address] Chief Operator Hydroformer Endocrinology 08/29/24 Rachel Ray, DYE HOUSE WHEEL OPERATOR [address] [place] [address] Nurse Practitioner Gastroenterology 09/24/24 Tamera Isabel LPN VALUE-BASED TRANSFORMATION PROGRAM Licensed Practical Nurse 05/29/25 Monique Tapia LPN VALUE-[place] [address] TCM Nurse 07/10/25 08/09/25 documented as of this encounter
--- OUTSIDE RECORDS SUMMARY | 2025-08-25 15:21 | XMS_ITS | Encounter Summary ---
Author Organization [facility] Address [address] [place] [address] Care Team Providers Care Tipple Worker Name Role Phone Lea Fernando Unavailable [phone] Rachel Ray RADIO MECHANIC HELPER Unavailable [phone] Alvarez Zimmer MD Primary Care Provider Tamera Isabel CARAMEL CUTTER HELPER Unavailable Unavailabl Monique Garay LPN Unavailable [...] often do you attend chur ch or congregational services? Patient unable to answer [...] often do you attend chur ch or congregational services? Never 05/29/2025 Do you belong to [...] one occasion? Never 06/25/2025 [facility] of Occupat ional Health - [...] drink first t kennedy in the morning (EYE-COMPRESSOR OPERATOR PORTABLE) to steady your nerves or to get [...] Visit [facility] [address] [place] [address] Miranda Hobson, RADIO MECHANIC HELPER [address] [place] [address] 08/29/2025 10:00 AM EDT Appointment [facility] Interventional Radiology [address] [place] [address] 08/29/2025 11:00 AM EDT Appointment [facility] Interventional Radiology [address] [place] [address] 09/03/2025 8:40 AM EDT Office Visit [place] [address] [facility], [address] [place] [address] Lillie Pritchard MD [address] [place] [address] 09/05/2025 10:00 AM EDT Appointment [facility] Interventional Radiology [address] [place] [address] 09/05/2025 11:00 AM EDT Appointment [facility] Interventional Radiology [address] [place] [address] 09/17/2025 9:45 AM EDT Clinical Support [facility] [place] [address] [place] [address] 09/17/2025 10:30 AM EDT Social Work [facility] [place] [address] [place] [address] Lea Reilly, [place] [address] 09/17/2025 11:20 AM EDT Office Visit [facility] [place] [address] [place] [address] Octavia Herrera, PA [address] [place] [address] documented as of this encounter Visit Diagnoses [...] documented as of this encounter Care Teams Tipple Worker Relationship Specialty Start Date End Date Alvarez Zimmer MD [address] [place] [address] PCP - General Family Medicine 12/07/24 Lea Fernando [address] [place] [address] Sorter/Assay Tech Endocrinology 08/29/24 Rachel Ray APRN [address] [place] [address] Nurse Practitioner Gastroenterology 09/24/24 Tamera Isabel LPN VALUE-BASED TRANSFORMATION PROGRAM Licensed Practical Nurse 05/29/25 Monique Tapia LPN VALUE-BAS[place] [address] TCM Nurse 07/10/25 08/09/25 documented as of this encounter
--- OUTSIDE RECORDS SUMMARY | 2025-08-25 15:21 | XMS_ITS | Encounter Summary ---
Author Organization [facility] Address [address] [place] [address] Care Team Providers Care Tank Washer Name Role Phone Lea Fernando Unavailable [phone] Rachel Ray INFORMATION ASSURANCE Unavailable [phone] Alvarez Zimmer MD Primary Care Provider [phone] Tamera Isabel METHODS ANALYST DATA PROCESSING Unavailable Unavailabl Monique Garay LPN Unavailable Unavailable [...] often do you attend chur ch or judaism services? Patient unable to answer [...] often do you attend chur ch or judaism services? Never 05/29/2025 Do you belong to [...] more drinks on one occasion? Never 06/25/2025 [facility] of Occupat ional Health [...] first t kennedy in the morning (EYE-AIRPORT LOCATION MANAGER) to steady your nerves or to [...] Description 08/26/2025 1:00 PM EDT Office Visit [facility] Endocrinology [address] [place] [address] Miranda Hobson, INFORMATION ASSURANCE [address] [facility] [address] [place] [address] 08/29/2025 10:00 AM EDT Appointment [facility] Interventional Radiology [address] [place] [address] 08/29/2025 11:00 AM EDT Appointment [facility] Interventional Radiology [address] [place] [address] 09/03/2025 8:40 AM EDT Office Visit [facility] [address], [address] [place] [address] Lillie Pritchard MD [address] [place] [address] 09/05/2025 10:00 AM EDT Appointment [facility] Interventional Radiology [address] [place] [address] 09/05/2025 11:00 AM EDT Appointment [facility] Interventional Radiology [address] [place] [address] 09/17/2025 9:45 AM EDT Clinical Support [facility] Transplant [place] [address] [place] [address] 09/17/2025 10:[address] [facility] [place] [address] [facility] [address] [place] [address] [place], [place] [address] 09/17/2025 11:20 AM EDT Office Visit [facility] [place] [address] [facility] [address] [place] [address] Octavia Herrera, PA [address] [facility] [address] [place] [address] documented as of this encounter Visit Diagnoses [...] as of this encounter Care Teams Tank Washer Relationship Specialty Start Date End Date Alvarez Zimmer MD [address] [place] [address] PCP - General Family Medicine 12/07/24 Lea Fernando 2[address] [facility] 125 [place] [address] Electric Accounting Machine Operator Endocrinology 08/29/24 Rachel Ray, INFORMATION ASSURANCE [address] [place] [address] Nurse Practitioner Gastroenterology 09/24/24 Tamera Isabel LPN VALUE-BASED TRANSFORMATION PROGRAM Licensed Practical Nurse 05/29/25 Monique Tapia LPN VALUE-[place] [address] TCM Nurse 07/10/25 08/09/25 documented as of this encounter
--- OUTSIDE RECORDS SUMMARY | 2025-08-25 15:23 | XMS_ITS | Encounter Summary ---
Author Organization [facility] Address [address] [place] [address] Care Team Providers Care Field Manager Name Role Phone Lea Fernando Unavailable [phone] Rachel Ray FERN GATHERER Unavailable [phone] Alvarez Zimmer MD Primary Care Provider [phone] Tamera Isabel DETAIL DRAFTER Unavailable UnavailAlina Bedolla RN Unavailable Unavailab Monique Che DETAIL DRAFTER Unavailable Unavailable Encounter Details Date Type Department Care Team (Late st Contact Info) Description 06/20/2025 Telephone [facility] Medicine [address] [place] [address] Alvarez Zimmer MD [address] [place] [address] Social History Tobacco Use Types [...] o r organizations such as tenriism groups, [employer], [employer] or athletic groups, or school groups? Patient [...] week 05/29/2025 How often do you attend [facility] ch or latter-day services? Never 05/29/2025 Do you belong to any clubs o r organizations such as tenriism groups, [employer], [employer] or athletic groups, or school groups? No [...] more drinks on one occasion? Never 06/25/2025 [facility] of Occupat ional Health - Occupational Stress [...] drink first t kennedy in the morning (EYE-RECEIVING DOCK CHECKER) to steady your nerves or to get rid of a hangover? 0 06/25/2025 CAGE Questionnaire Score 0 025 Utilities Answer Date Recorded In the past 12 months has th [employer], gas, oil, or water company threatened to [...] plus. I did search an there is [facility] Palliative so I have faxed [...] go to a facility. Best contact number: [phone] (mobile) Optimal time of day to reach [...] 08/26/2025 1:00 PM EDT Office Visit [facility] Endocrinology [address] [place] [address] Miranda Hobson, FERN GATHERER [address] [facility] [address] [place] [address] 08/29/2025 10:00 AM EDT Appointment [facility] Interventional Radiology [address] [place] [address] 08/29/2025 11:00 AM EDT Appointment [facility] Interventional Radiology [address] [place] [address] 09/03/2025 8:40 AM EDT Office Visit [facility] [address] [facility], [address] [place] [address] Lillie Pritchard MD [address] [place] [address] 09/05/2025 10:00 AM EDT Appointment [facility] Interventional Radiology [address] [place] [address] 09/05/2025 11:00 AM EDT Appointment [facility] Interventional Radiology [address] [place] [address] 09/17/2025 9:45 AM EDT Clinical Support [facility] [place] [address] [address] 09/17/2025 10:[address] [facility] [place] [address] [facility] [address] [place] [address] Lea Reilly, [place] [address] 09/17/2025 11:20 AM EDT Office Visit [facility] [address] [place] [address] Octavia Herrera PA [address] [place] [address] documented as of this encounter [...] as of this encounter Care Teams Field Manager Relationship Specialty Start Date End Date Alvarez Zimmer MD [address] [place] [address] PCP - General Family Medicine 12/07/24 Lea Fernando 2[address] [facility] 125 [place] [address] Manager Drug Endocrinology 08/29/24 Rachel Ray, FERN GATHERER [address] [place] [address] Nurse Practitioner Gastroenterology 09/24/24 Tamera Isabel LPN VALUE-BASED TRANSFORMATION PROGRAM Licensed Practical Nurse 05/29/25 Alina Lovett, RN [facility] INTERVENTIONAL RADIOLOGY Registered Nurse 06/26/25 06/26/25 Monique Tapia LPN VALUE-BASED [place] [address] TCM Nurse 07/10/25 08/09/25 documented as of this encounter
--- OUTSIDE RECORDS SUMMARY | 2025-08-25 15:23 | XMS_ITS | Encounter Summary ---
Author Organization [facility] Address [address] [place] [address] Care Team Providers Care Combustion Engineer Name Role Phone Lea Fernando Unavailable [phone] Rachel Ray PERSONNEL RESEARCH PSYCHOLOGIST Unavailable [phone] Alvarez Zimmer MD Primary Care Provider [phone] Tamera Isabel TECHNOLOGY INSTRUCTOR Unavailable Unavailabl e Encounter Details Date [...] you attend [facility] or orthodox services? Never 05/29/2025 Do [...] more drinks on one occasion? Never 06/25/2025 [facility] of Occupat ional [facility] - Occupational Stress Questionnaire Answer Date [...] drink first t kennedy in the morning (EYE-MACHINE BUNCH MAKER) to steady your nerves or to [...] Visit [facility] [address] [place] [address] Miranda Hobson, PERSONNEL RESEARCH PSYCHOLOGIST [address] [place] [address] 08/29/2025 10:00 AM EDT Appointment [facility] Interventional Radiology [address] [place] [address] 08/29/2025 11:00 AM EDT Appointment [facility] Interventional Radiology [address] [place] [address] 09/03/2025 8:40 AM EDT Office Visit [facility] [address] [facility], [address] [place] [address] Lillie Pritchard MD [address] [place] [address] 09/05/2025 10:00 AM EDT Appointment [facility] Interventional Radiology [address] [place] [address] 09/05/2025 11:00 AM EDT Appointment [facility] Interventional Radiology [address] [place] [address] 09/17/2025 9:45 AM EDT Clinical Support [facility] Trans[facility] [place] [address] [place] [address] 09/17/2025 10:30 AM EDT Social Work [facility] [place] [address] [place] [address] Lea Reilly, [place] [address] 09/17/2025 11:20 AM EDT Office Visit [facility] [place] [address] [place] [address] Octavia Herrera, PA [address] [place] [address] documented as of this encounter Visit Diagnoses [...] documented as of this encounter Care Teams Combustion Engineer Relationship Specialty Start Date End Date Alvarez Zimmer MD [address] [place] [address] PCP - General Family Medicine 12/07/24 Lea Fernando [address] [place] [address] Machine Molder Squeeze Endocrinology 08/29/24 Rachel Ray APRN [address] [facility] [address] [place] [address] Nurse Practitioner Gastroenterology 09/24/24 Tamera Isabel, TECHNOLOGY INSTRUCTOR VALUE-BASED TRANSFORMATION PROGRAM Licensed Practical Nurse 05/29/25 documented as of this encounter
--- OUTSIDE RECORDS SUMMARY | 2025-08-25 15:23 | XMS_ITS | Encounter Summary ---
Author Organization [facility] Address [address] [place] [address] Care Team Providers Care Hull And Deck Remover Name Role Phone Lea Fernando Unavailable [phone] Rachel Ray CLINICAL NURSE Unavailable [phone] Alvarez Zimmer MD Primary Care Provider [phone] Tamera Isabel TAIL SAWYER Unavailable Unavailabl e Reason for Visit * Reason Comments Med Refill Encounter Details Date Type Department Care Team (Late st Contact Info) Description 07/07/2025 Refill [facility] Medicine [address] [place] [address] Lisa Acuna, CLINICAL NURSE, DNP [address] [place] [address] ETD (Eustachian tube dysfunction), bilateral [...] o r organizations such as jew groups, [employer], [employer] or athletic groups, or school groups? Patient [...] o r organizations such as jew groups, [employer], [employer] or athletic groups, or school groups? No [...] more drinks on one occasion? Never 06/25/2025 [facility] [place] of Occupat ional Health - Occupational Stress [...] drink first t kennedy in the morning (EYE-PHILATELIC CONSULTANT) to steady your nerves or to get rid of a hangover? 0 06/25/2025 CAGE Questionnaire Score 0 025 Utilities Answer Date Recorded In the past 12 months has th [employer], gas, oil, or water company threatened [...] Visit [facility] Endocrinology [address] [place] [address] Miranda Hobson, CLINICAL NURSE [address] [facility] [address] [place] [address] 08/29/2025 10:00 AM EDT Appointment [facility] Interventional Radiology [address] [place] [address] 08/29/2025 11:00 AM EDT Appointment [facility] Interventional Radiology [address] [place] [address] 09/03/2025 8:40 AM EDT Office Visit [facility] [address] [facility], [address] [place] [address] Lillie Pritchard MD [address] [place] [address] 09/05/2025 10:00 AM EDT Appointment [facility] Interventional Radiology [address] [place] [address] 09/05/2025 11:00 AM EDT Appointment [facility] Interventional Radiology [address] [place] [address] 09/17/2025 9:45 AM EDT Clinical Support [facility] Trans[facility] [place] [address] [place] [address] 09/17/2025 10:30 AM EDT Social Work [facility] [address] [place] [address] Lea Reilly, [place], [place] [id number] 09/17/2025 11:20 AM EDT Office Visit [facility] [address] [place] [address] Octavia Herrera, PA [address] [facility] [address] [place] [address] documented as of this encounter [...] documented as of this encounter Care Teams Hull And Deck Remover Relationship Specialty Start Date End Date Alvarez Zimmer MD [address] [place] [address] PCP - General Family Medicine 12/07/24 Lea Frenando [address] [facility] 125 [place] [address] Fire Management Officer Endocrinology 08/29/24 Rachel Ray, CLINICAL NURSE [address] [place] [address] Nurse Practitioner Gastroenterology 09/24/24 Tamera Isabel LPN VALUE-BASED TRANSFORMATION PROGRAM Licensed Practical Nurse 05/29/25 documented as of this encounter
--- OUTSIDE RECORDS SUMMARY | 2025-08-25 15:23 | XMS_ITS | Encounter Summary ---
Author Organization [facility] Address [address] [place] [address] Care Team Providers Care Dishtank Operator Name Role Phone Lea Fernando Unavailable [phone] Rachel Ray LEAD CARGOMAN Unavailable [phone] Alvarez Zimmer MD Primary Care Provider [phone] Tamera Isabel LPN Unavailable Unavailabl e Monique Tapia LPN Unavailable Unavailable Reason for Visit * Reason Comments TCM Encounter Details Date Type Department Care Team (Late st Contact Info) Description 07/10/2025 Patient Outreach [facility] [address] [facility], [address] [place] [address] Monique Tapia LPN VALUE-BASED [place] [address] TCM Social History Tobacco Use Types Packs/Day [...] o r organizations such as hoahaoism groups, [employer], [employer] or athletic groups, or school groups? Patient [...] week 05/29/2025 How often do you attend [facility] ch or episcopalian services? Never 05/29/2025 Do you belong to any clubs o r organizations such as hoahaoism groups, unions, [employer] or athletic groups, or school groups? No [...] more drinks on one occasion? Never 06/25/2025 [facility] - Occupational Stress Questionnaire [...] drink first t kennedy in the morning (EYE-INNER TUBE INSERTER) to steady your nerves or to get [...] Admit Date: 06/25/2025 Discharge Date: 07/09/2025 to [facility] in [place] [facility] Service: GSH Discharge Diagnosis: Cirrhosis of liver with ascites 07/10/2025 TCM call # 1 Patient Reached: N Outcome: No KLEBER nurse call placed due to patient discharged to [facility] in [place] on 07/09/2025. Action: Follow up task placed [...] Description 08/26/2025 1:00 PM EDT Office Visit [facility] Endocrinology [address] [place] [address] Miranda Hobson, LEAD CARGOMAN [address] [place] [address] 08/29/2025 10:00 AM EDT Appointment [facility] Interventional Radiology [address] [place] [address] 08/29/2025 11:00 AM EDT Appointment [facility] Interventional Radiology [address] [place] [address] 09/03/2025 8:40 AM EDT Office Visit [facility] [address] [place] [address] Lillie Pritchard MD [address] [place] [address] 09/05/2025 10:00 AM EDT Appointment [facility] Interventional Radiology [address] [place] [address] 09/05/2025 11:00 AM EDT Appointment [facility] Interventional Radiology [address] [place] [address] 09/17/2025 9:45 AM EDT Clinical Support [facility] [place] [address] [facility] [address] [place] [address] 09/17/2025 10:30 AM EDT Social Work [facility] [place] [address] [facility] [place] [address] [place], [place] [address] 09/17/2025 11:20 AM EDT Office Visit [facility] [place] [address] [facility] [address] [place] [address] Octavia Herrera, PA [address] [facility] [address] [place] [address] documented as of this encounter [...] documented as of this encounter Care Teams Dishtank Operator Relationship Specialty Start Date End Date Alvarez Zimmer MD [address] [place] [address] PCP - General Family Medicine 12/07/24 Lea Fernando 2[address] [facility] 125 [place] [address] Emergency Dept Tech Endocrinology 08/29/24 Rachel Ray APRN [address] [place] [address] Nurse Practitioner Gastroenterology 09/24/24 Tamera Isabel LPN VALUE-BASED TRANSFORMATION PROGRAM Licensed Practical Nurse 05/29/25 Monique Tapia LPN VALUE-BASED [place] [address] TCM Nurse 07/10/25 08/09/25 documented as of this encounter
--- OUTSIDE RECORDS SUMMARY | 2025-08-25 15:23 | XMS_ITS | Encounter Summary ---
Author Organization Healthcare Address [address] [place] [address] Care Team Providers Care Brewer Helper Name Role Phone Lea Fernando Unavailable [phone] Rachel Ray DIETARY ASSISTANT Unavailable [phone] Alvarez Zimmer MD Primary Care Provider [phone] Tamera Isabel LPN Unavailable Unavailabl Alina Jennings RN Unavailable Unavailab le Encounter Details Date Type Department Care Team (Late st Contact Info) Description 06/23/2025 Orders Only External Location [address] [place] [address] Kandice Maldonado, DIETARY ASSISTANT [address] [place] [address] Social History Tobacco Use Types [...] often do you attend chur ch or gnosticism services? Patient unable to answer 01/10/2025 Do you belong to any clubs o r organizations such as christianity groups, [employer], [employer] or athletic groups, or school groups? Patient [...] week 05/29/2025 How often do you attend [facility] ch or gnosticism services? Never 05/29/2025 Do you belong to any clubs o r organizations such as christianity groups, unions, [employer] or athletic groups, or school groups? No [...] first t kennedy in the morning (EYE-MEDICAL PRACTITIONERS) to steady your nerves or to get rid of a hangover? 0 06/25/2025 CAGE Questionnaire Score 0 025 Utilities Answer Date Recorded In the past 12 months has th [employer] electric, gas, oil, or water company threatened [...] Visit [facility] Endocrinology [address] [place] [address] Miranda Hobson, DIETARY ASSISTANT [address] [facility] [address] [place] [address] 08/29/2025 10:00 AM EDT Appointment [facility] Inter[facility]iology [address] [place] [address] 08/29/2025 11:00 AM EDT Appointment [facility] Inter[facility] Radiology [address] [place] [address] 09/03/2025 8:40 AM EDT Office Visit [facility] [address] [facility], [address] [place] [address] Lillie Pritchard MD [address] [place] [address] 09/05/2025 10:00 AM EDT Appointment [facility] Inter[facility] Radiology [address] [place] [address] 09/05/2025 11:00 AM EDT Appointment [facility] Inter[facility] Radiology [address] [place] [address] 09/17/2025 9:45 AM EDT Clinical Support [facility] [place] [address] [facility] [address] [place] [address] 09/17/2025 10:30 AM EDT Social Work [facility] [place] [address] [facility] [address] [place] [address] Lea Reilly, [place], [place] [id number] 09/17/2025 11:20 AM EDT Office Visit [facility] [place] [address] [facility] [address] [place] [address] Octavia Herrera, PA [address] [facility] [address] [place] [address] documented as of this encounter [...] documented as of this encounter Care Teams Brewer Helper Relationship Specialty Start Date End Date Alvarez Zimmer MD [address] [place] [address] PCP - General Family Medicine 12/07/24 Lea Fernando [address] [facility] [address] [place] [phone] Auto Body Mechanic Apprentice Endocrinology 08/29/24 Rachel Ray APRN [address] [place] [address] Nurse Practitioner Gastroenterology 09/24/24 Tamera Isabel, MG VALUE-BASED TRANSFORMATION PROGRAM Licensed Practical Nurse 05/29/25 Alina Lovett, RN CH-VASCULAR & INTERVENTIONAL RADIOLOGY Registered Nurse 06/26/25 06/26/25 documented as of this encounter
--- OUTSIDE RECORDS SUMMARY | 2025-08-25 15:23 | XMS_ITS | Encounter Summary ---
Author Organization [facility] Address [address] [place] [address] Care Team Providers Care Tar Kettle Runner Name Role Phone Lea Fernando Unavailable [phone] Rachel Ray DAY HABILITATION SUPERVISOR Unavailable [phone] Alvarez Zimmer MD Primary Care Provider Tamera Isabel BIOMEDICAL EQUIPMENT SUPPORT SPECIALIST Unavailable Unavailabl e Encounter Details Date Type [...] 05/29/2025 How often do you attend [facility] or methodist services? Never 05/29/2025 Do you [...] more drinks on one occasion? Never 06/25/2025 [facility] [place] of Occupat ional [facility] - Occupational Stress Questionnaire Answer Date [...] first t kennedy in the morning (EYE-HEALTH SERVICES DIRECTOR) to steady your nerves or to [...] Visit [facility] [address] [place] [address] Miranda Hobson, DAY HABILITATION SUPERVISOR [address] [place] [address] 08/29/2025 10:00 AM EDT Appointment [facility] Inter[facility] Radiology [address] [place] [address] 08/29/2025 11:00 AM EDT Appointment [facility] Inter[facility] Radiology [address] [place] [address] 09/03/2025 8:40 AM EDT Office Visit [facility] [address] [facility], [address] [place] [address] Lillie Pritchard MD [address] [place] [address] 09/05/2025 10:00 AM EDT Appointment [facility] Inter[facility] Radiology [address] [place] [address] 09/05/2025 11:00 AM EDT Appointment [facility] Inter[facility] Radiology [address] [place] [address] 09/17/2025 9:45 AM EDT Clinical Support [facility] [place] [address] [place] [address] 09/17/2025 10:30 AM EDT Social Work [facility] [place] [address] [place] [address] Lea Reilly, [place] [address] 09/17/2025 11:20 AM EDT Office Visit [facility] [place] [address] [place] [address] Octavia Herrera, PA [address] [place] [address] documented as of this encounter Visit Diagnoses [...] documented as of this encounter Care Teams Tar Kettle Runner Relationship Specialty Start Date End Date Alvarez Zimmer MD [address] [place] [address] PCP - General Family Medicine 12/07/24 Lea Fernando [address] [place] [address] Hydraulic Jack Adjuster Endocrinology 08/29/24 Rachel Ray APRN [address] [facility] [address] [place] [address] Nurse Practitioner Gastroenterology 09/24/24 Tamera Isabel, BIOMEDICAL EQUIPMENT SUPPORT SPECIALIST VALUE-BASED TRANSFORMATION PROGRAM Licensed Practical Nurse 05/29/25 documented as of this encounter
--- OUTSIDE RECORDS SUMMARY | 2025-08-25 15:23 | XMS_ITS | Encounter Summary ---
Author Organization [facility] Address [address] [place] [address] Care Team Providers Care Slurry Mixer Name Role Phone Lea Fernando Unavailable [phone] Rachel Ray GAS OPERATION MANAGER Unavailable [phone] Alvarez Zimmer MD Primary Care Provider [phone] Tamera Isabel MODEL MAKER PLASTER Unavailable Unavailabl e Encounter Details Date Type [...] you attend chur ch or protestant services? Patient unable to answer [...] How often do you attend [facility] or protestant services? Never 05/29/2025 Do you [...] drinks on one occasion? Never 06/25/2025 [facility] [place] of Occupat ional [facility] - Occupational Stress Questionnaire Answer Date [...] first t kennedy in the morning (EYE-WEB MANAGER) to steady your nerves or to [...] Description 08/26/2025 1:00 PM EDT Office Visit [facility] Endocrinology [address] [place] [address] Miranda Hobson, GAS OPERATION MANAGER [address] [place] [address] 08/29/2025 10:00 AM EDT Appointment [facility] Inter[facility] Radiology [address] [place] [address] 08/29/2025 11:00 AM EDT Appointment [facility] Inter[facility] Radiology [address] [place] [address] 09/03/2025 8:40 AM EDT Office Visit [facility] [address] [facility] [place] [address] Lillie Pritchard MD [address] [place] [address] 09/05/2025 10:00 AM EDT Appointment [facility] Inter[facility] Radiology [address] [place] [address] 09/05/2025 11:00 AM EDT Appointment [facility]iology [address] [place] [address] 09/17/2025 9:45 AM EDT Clinical Support [facility] [place] [address] [place] [address] 09/17/2025 10:30 AM EDT Social Work [facility] [place] [address] [place] [address] Lea Reilly, [place] [address] 09/17/2025 11:20 AM EDT Office Visit [facility] [place] [address] [place] [address] Octavia Herrera, PA [address] [place] [address] documented as of this encounter Visit Diagnoses [...] documented as of this encounter Care Teams Slurry Mixer Relationship Specialty Start Date End Date Alvarez Zimmer MD [address] [place] [address] PCP - General Family Medicine 12/07/24 Lea Fernando [address] [facility] [address] [place] [address] Social Organization Professor Endocrinology 08/29/24 Rachel Ray APRN [address] [facility] [address] [place] [address] Nurse Practitioner Gastroenterology 09/24/24 Tamera Isabel LPN VALUE-BASED TRANSFORMATION PROGRAM Licensed Practical Nurse 05/29/25 documented as of this encounter
--- OUTSIDE RECORDS SUMMARY | 2025-08-25 15:23 | XMS_ITS | Encounter Summary ---
Author Organization [facility] Address [address] [place] [address] Care Team Providers Care Cargo Worker Name Role Phone Lea Fernando Unavailable [phone] Rachel Ray FISH FARMER Unavailable [phone] Alvarez Zimmer MD Primary Care Provider [phone] Tamera Isabel TRANSPORTATION SALES CONSULTANT Unavailable UnavailAlina Bedolla RN Unavailable Unavailab Monique Che TRANSPORTATION SALES CONSULTANT Unavailable Unavailable Reason for Visit * Reason Onset Date Comments HCN Clinical Concern/Question 06/21/2025 Encounter Details Date Type Department Care Team (Late st Contact Info) Description 06/21/2025 Telephone [facility] Medicine [address] [place] [address] Alvarez Zimmer MD [address] [place] [address] HCN Clinical Concern/Question Social History [...] week 01/10/2025 How often do you attend [facility] ch or jainism services? Patient unable to answer 01/10/2025 Do you belong to any clubs o r organizations such as caodaism groups, [employer], fraternal or athletic groups, or school groups? [...] week 05/29/2025 How often do you attend [facility] ch or jainism services? Never 05/29/2025 Do [...] drinks on one occasion? Never 06/25/2025 [facility] [place] of Occupat ional Health - Occupational Stress [...] drink first t kennedy in the morning (EYE-TRUCK RENTAL MANAGER) to steady your nerves or to [...] home palliative care. Best contact number: Other: [phone] Optimal time of day to reach caller: ANYTIME Additional comments/information from caller: None Note: Please do not reply to this message. Follow-up communication and further actions as a result of this message need to be communicated with the patient directly, if the patient is not active onMyChart. If the patient is active on MyChart, they will receive notification of the communication/outcome via REHt. documented in this encounter Plan of Treatment Upcoming Encounters Date Type Department Care Team (Late st Contact Info) Description 08/26/2025 1:00 PM EDT Office Visit [facility] Endocrinology [address] [place] [address] Miranda Hobson, FISH FARMER [address] [place] [address] 08/29/2025 10:00 AM EDT Appointment [facility] Interventional Radiology [address] [place] [address] 08/29/2025 11:00 AM EDT Appointment [facility] Interventional Radiology [address] [place] [address] 09/03/2025 8:40 AM EDT Office Visit [place] [address] [facility] [place] [address] Lillie Pritchard MD [address] [place] [address] 09/05/2025 10:00 AM EDT Appointment [facility] Inter[facility] Radiology [address] [place] [address] 09/05/2025 11:00 AM EDT Appointment [facility] Interventional Radiology [address] [place] [address] 09/17/2025 9:45 AM EDT Clinical Support [facility] [place] [address] [place] [address] 09/17/2025 10:30 AM EDT Social Work [facility] [place] [address] [place] [address] Lea Reilly, [place] [address] 09/17/2025 11:20 AM EDT Office Visit [facility] [place] [address] [place] [address] Octavia Herrera, PA [address] [place] [address] documented as of this encounter Visit Diagnoses [...] documented as of this encounter Care Teams Cargo Worker Relationship Specialty Start Date End Date Alvarez Zimmer MD [address] [place] [address] PCP - General Family Medicine 12/07/24 Lea Fernando [address] [place] [address] Coffee Host Endocrinology 08/29/24 Rachel Ray, FISH FARMER [address] [place] [address] Nurse Practitioner Gastroenterology 09/24/24 Tamera Isabel LPN VALUE-BASED TRANSFORMATION PROGRAM Licensed Practical Nurse 05/29/25 Alina Lovett, RN CH-VASCULAR & INTERVENTIONAL RADIOLOGY Registered Nurse 06/26/25 06/26/25 Monique Tapia LPN VALUE-BASED [place] [address] TCM Nurse 07/10/25 08/09/25 documented as of this encounter
--- OUTSIDE RECORDS SUMMARY | 2025-08-25 15:23 | XMS_ITS | Encounter Summary ---
Author Organization [facility] Address [address] [place] [address] Care Team Providers Care Device Sales Consultant Name Role Phone Lea Fernando Unavailable [phone] Rachel Ray LIME BURNER Unavailable [phone] Alvarez Zimmer MD Primary Care Provider [phone] Tamera Isabel BUSBOY Unavailable Unavailabl Alina Jennings RN Unavailable Unavailab le Reason for Visit * Reason Onset Date Comments Med Refill 06/23/2025 Encounter Details Date Type Department Care Team (Late st Contact Info) Description 06/23/2025 Refill [facility] Met[facility] [address] [facility], [address] [place] [address] Ar Dominique MD [address] [facility] [address] [place] [address] Vitamin D deficiency Social History [...] o r organizations such as rastafari groups, [employer], Incentive or athletic groups, or school groups? Patient [...] o r organizations such as rastafari groups, [employer], Incentive or athletic groups, or school groups? No [...] more drinks on one occasion? Never 06/25/2025 [facility] of Occupat [facility] - Occupational Stress Questionnaire Answer [...] first t kennedy in the morning (EYE-ELECTRONIC SEMICONDUCTOR PROCESSOR) to steady your nerves or to [...] [facility] Endocrinology [address] [place] [address] Miranda Hobson, LIME BURNER [address] [place] [address] 08/29/2025 10:00 AM EDT Appointment [facility] Interventional Radiology [address] [place] [address] 08/29/2025 11:00 AM EDT Appointment [facility] Interventional Radiology [address] [place] [address] 09/03/2025 8:40 AM EDT Office Visit [facility] Medicine [address], [address] [place] [address] Lillie Pritchard MD [address] [place] [address] 09/05/2025 10:00 AM EDT Appointment [facility] Interventional Radiology [address] [place] [address] 09/05/2025 11:00 AM EDT Appointment [facility] Interventional Radiology [address] [place] [address] 09/17/2025 9:45 AM EDT Clinical Support [facility] [place] [address] [place] [address] 09/17/2025 10:30 AM EDT Social Work [facility] [place] [address] [place] [address] Lea Reilly, [place] [address] 09/17/2025 11:20 AM EDT Office Visit [facility] [place] [address] [place] [address] Octavia Herrera, MARIA GUADALUPE [address] [facility] [address] [place] [address] documented as of this encounter Visit Diagnoses [...] documented as of this encounter Care Teams Device Sales Consultant Relationship Specialty Start Date End Date Alvarez Zimmer MD [address] [place] [address] PCP - General Family Medicine 12/07/24 Lea Fernando [address] [facility] [address] [place] [address] Intertype Operator Endocrinology 08/29/24 Rachel Ray, LIME BURNER [address] [address] Nurse Practitioner Gastroenterology 09/24/24 Tamera Isabel LPN VALUE-BASED TRANSFORMATION PROGRAM Licensed Practical Nurse 05/29/25 Alina Lovett, RN CH-VASCULAR & INTERVENTIONAL RADIOLOGY Registered Nurse 06/26/25 06/26/25 documented as of this encounter
--- OUTSIDE RECORDS SUMMARY | 2025-08-25 15:23 | XMS_ITS | Encounter Summary ---
Author Organization [facility] Address [address] [place] [address] Care Team Providers Care Board Certified Behavioral Analyst Name Role Phone Lea Fernando Unavailable [phone] Rachel Ray ARCHITECTURAL TECHNICIAN Unavailable [phone] Alvarez Zimmer MD Primary Care Provider [phone] Tamera Isabel LPN Unavailable Unavailabl Alina Jennings RN Unavailable Unavailab le Encounter Details Date Type Department Care Team (Late st Contact Info) Description 06/23/2025 Orders Only External Location [address] [place] [address] Kandice Maldonado, ARCHITECTURAL TECHNICIAN [address] [place] [address] Social History Tobacco Use Types [...] o r organizations such as lutheran groups, [employer], [employer] or athletic groups, or school groups? Patient [...] week 05/29/2025 How often do you attend [facility] ch or church services? Never 05/29/2025 Do you belong to any clubs o r organizations such as lutheran groups, unions, [employer] or athletic groups, or school groups? No [...] more drinks on one occasion? Never 06/25/2025 [facility] of Occupat ional Health - Occupational [...] drink first t kennedy in the morning (EYE-SAND PLANT ATTENDANT) to steady your nerves or to get rid of a hangover? 0 06/25/2025 CAGE Questionnaire Score 0 025 Utilities Answer Date Recorded In the past 12 months has th [employer] electric, gas, oil, or water company threatened [...] Description 08/26/2025 1:00 PM EDT [facility] [address] [place] [address] Miranda Hobson, ARCHITECTURAL TECHNICIAN [address] [facility] [address] [place] [address] 08/29/2025 10:00 AM EDT Appointment [facility] Interventional Radiology [address] [place] [address] 08/29/2025 11:00 AM EDT Appointment [facility] Interventional Radiology [address] [place] [address] 09/03/2025 8:40 AM EDT Office Visit [facility] [address] [facility], [address] [place] [address] Lillie Pritchard MD [address] [place] [address] 09/05/2025 10:00 AM EDT Appointment [facility] Interventional Radiology [address] [place] [address] 09/05/2025 11:00 AM EDT Appointment [facility] Interventional Radiology [address] [place] [address] 09/17/2025 9:45 AM EDT Clinical Support [facility] [place] [address] [facility] [address] [place] [address] 09/17/2025 10:30 AM EDT Social Work [facility] [address] [facility] [address] [place] [address] Lea Reilly, ACCREDITATION MA[place], [place] [address] 09/17/2025 11:20 AM EDT Office Visit [facility] [place] [address] [facility] [address] [place] [address] Octavia Herrera, PA [address] [facility] [address] [place] [address] documented as of this [...] documented as of this encounter Care Teams Board Certified Behavioral Analyst Relationship Specialty Start Date End Date Alvarez Zimmer MD [address] [place] [address] PCP - General Family Medicine 12/07/24 Lea Fernando [address] [facility] 125 [place] [address] Bread Wrapper Operator Endocrinology 08/29/24 Rachel Ray, ARCHITECTURAL TECHNICIAN [address] [facility] [address] [place] [address] Nurse Practitioner Gastroenterology 09/24/24 Tamera Isabel LPN VALUE-BASED TRANSFORMATION PROGRAM Licensed Practical Nurse 05/29/25 Alina Lovett, RN CH-VASCULAR & INTERVENTIONAL RADIOLOGY Registered Nurse 06/26/25 06/26/25 documented as of this encounter
--- OUTSIDE RECORDS SUMMARY | 2025-08-25 15:23 | XMS_ITS | Encounter Summary ---
Author Organization [facility] Address [address] [place] [address] Care Team Providers Care Motor Rebuilder Name Role Phone NaseemVviTor, Lea Clarke Unavailable [phone] Rachel Ray EMERGENCY PLANNER Unavailable [phone] Alvarez Zimmer MD Primary Care Provider [phone] Tamera Isabel TESTER FOOD PRODUCTS Unavailable Unavailabl e Alina Lovett RN Unavailable Unavailab le Reason for Visit * Reason Comments Link Encounter Details Date Type Department Care Team (Late st Contact Info) Description 06/26/2025 Patient Outreach POPULATION [facility] [address] [facility], [address] [place] [address] Alina Lovett, RN CH-VASCULAR & [...] you attend [facility] or adventism services? Patient unable to answer 01/10/2025 Do you belong to any clubs o r organizations such as moravian groups, unions, [employer] or athletic groups, or school groups? Patient [...] one occasion? Never 06/25/2025 [facility] of Occupat ional [facility] - Occupational Stress Questionnaire Answer Date [...] drink first t kennedy in the morning (EYE-BIN WORKER) to steady your nerves or to get rid of a hangover? 0 06/25/2025 CAGE Questionnaire Score 0 025 Utilities Answer Date Recorded In the past 12 months has th [employer] electric, gas, oil, or water company threatened [...] PM EDT Office Visit [facility] [address] [place] [address] Miranda Hobson, EMERGENCY PLANNER [address] [place] [address] 08/29/2025 10:00 AM EDT Appointment [facility] [address] [place] [address] 08/29/2025 11:00 AM EDT Appointment [facility] Inter[facility] Radiology [address] [place] [address] 09/03/2025 8:40 AM EDT Office Visit [facility] [address] [facility], [address] [place] [address] Lillie Pritchard MD [address] [place] [address] 09/05/2025 10:00 AM EDT Appointment [facility] Inter[facility] Radiology [address] [place] [address] 09/05/2025 11:00 AM EDT Appointment [facility] Inter[facility] Radiology [address] [place] [address] 09/17/2025 9:45 AM EDT Clinical Support [facility] [place] [address] [place] [address] 09/17/2025 10:30 AM EDT Social Work [facility] [place] [address] [place] [address] Lea Reilly, [place] [address] 09/17/2025 11:20 AM EDT Office Visit [facility] [place] [address] [place] [address] Octavia Herrera, PA [address] [place] [address] documented as of this encounter Visit Diagnoses [...] documented as of this encounter Care Teams Motor Rebuilder Relationship Specialty Start Date End Date Alvarez Zimmer MD [address] [place] [address] PCP - General Family Medicine 12/07/24 Lea Fernando [address] [facility] [address] [place] [address] Glazing Machine Operator Endocrinology 08/29/24 Rachel Ray, EMERGENCY PLANNER [address] [facility] [address] [place] [address] Nurse Practitioner Gastroenterology 09/24/24 Tamera Isabel LPN VALUE-BASED TRANSFORMATION PROGRAM Licensed Practical Nurse 05/29/25 Alina Lovett, RN CH-VASCULAR & INTERVENTIONAL RADIOLOGY Registered Nurse 06/26/25 06/26/25 documented as of this encounter
--- OUTSIDE RECORDS SUMMARY | 2025-08-25 15:23 | XMS_ITS | Encounter Summary ---
Author Organization [facility] Address [address] [place] [address] Care Team Providers Care Hide Tanner Name Role Phone Lea Fernando Unavailable [phone] Rachel Ray ELEMENTARY SCHOOL MUSIC TEACHER Unavailable [phone] Alvarez Zimmer MD Primary Care Provider [phone] Tamera Isabel LPN Unavailable Unavailabl Alina Jennings RN Unavailable Unavailab le Encounter Details Date Type Department Care Team (Late st Contact Info) Description 06/23/2025 Orders Only External Location [address] [place] [address] Kandice Maldonado, ELEMENTARY SCHOOL MUSIC TEACHER [address] [place] [address] Social History Tobacco Use Types [...] o r organizations such as holiness groups, tag[employer]ALLE[employer], [employer] or athletic groups, or school groups? Patient [...] you attend the medical center ch or voodoo services? Never 05/29/2025 Do you belong to any clubs o r organizations such as holiness groups, unions, [employer] or athletic groups, or school groups? No [...] more drinks on one occasion? Never 06/25/2025 [facility] of Occupat ional Health - Occupational Stress [...] drink first t kennedy in the morning (EYE-TRACK SUBWAY REPAIR SUPERVISOR) to steady your nerves or to get rid of a hangover? 0 06/25/2025 CAGE Questionnaire Score 0 025 Utilities Answer Date Recorded In the past 12 months has th [employer] electric, gas, oil, or water company threatened [...] Description 08/26/2025 1:00 PM EDT Office Visit [facility] Endocrinology [address] [place] [address] Miranda Hobson, ELEMENTARY SCHOOL MUSIC TEACHER [address] [facility] [address] [place] [address] 08/29/2025 10:00 AM EDT Appointment [facility] Radiology [address] [place] [address] 08/29/2025 11:00 AM EDT Appointment [facility] Radiology [address] [place] [address] 09/03/2025 8:40 AM EDT Office Visit [facility] [address] [facility], [address] [place] [address] Lillie Pritchard MD [address] [place] [address] 09/05/2025 10:00 AM EDT Appointment [facility] Inter[facility] Radiology [address] [place] [address] 09/05/2025 11:00 AM EDT Appointment [facility] Inter[facility] Radiology [address] [place] [address] 09/17/2025 9:45 AM EDT Clinical Support [facility] [place] [address] [facility] [address] [place] [address] 09/17/2025 10:30 AM EDT Social Work [facility] [place] [address] [facility] [address] [place] [address] Lea Reilly, [place] [address] 09/17/2025 11:20 AM EDT Office Visit [facility] [place] [address] [facility] [address] [place] [address] Octavia Herrera, PA [address] [facility] [address] [place] [address] documented as of this encounter [...] documented as of this encounter Care Teams Hide Tanner Relationship Specialty Start Date End Date Alvarez Zimmer MD [address] [place] [address] PCP - General Family Medicine 12/07/24 Lea Fernando [address] [facility] [address] [place] [address] Mobile Paint Specialist Endocrinology 08/29/24 Rachel Ray APRN [address] [place] [address] Nurse Practitioner Gastroenterology 09/24/24 Tamera Isabel, MG VALUE-BASED TRANSFORMATION PROGRAM Licensed Practical Nurse 05/29/25 Alina Lovett, RN CH-VASCULAR & INTERVENTIONAL RADIOLOGY Registered Nurse 06/26/25 06/26/25 documented as of this encounter
--- OUTSIDE RECORDS SUMMARY | 2025-08-25 15:24 | XMS_ITS | Encounter Summary ---
Author Organization [facility] Address [address] [place] [address] Care Team Providers Care Cargo And Container Inspector Name Role Phone Lea Fernando Unavailable [phone] Rachel Ray WEAVING INSTRUCTOR Unavailable [phone] Alvarez Zimmer MD Primary Care Provider [phone] Tamera Isabel SCAN COORDINATOR Unavailable UnavailAlina Bedolla RN Unavailable Unavailab Monique Che SCAN COORDINATOR Unavailable Unavailable Encounter Details Date Type Department Care Team (Late st Contact Info) Description 06/17/2025 Telephone [facility] Endocrinology [address] [place] [address] Deysi Antonio MD [address] [facility] [address] [place] [address] Social History Tobacco Use Types [...] o r organizations such as voodoo groups, [employer], [employer] or athletic groups, or school groups? [...] r organizations such as voodoo groups, unions, [employer] or athletic groups, or school groups? No [...] more drinks on one occasion? Never 06/25/2025 [facility] of Occupat ional Health - Occupational Stress [...] drink first t kennedy in the morning (EYE-JAVA CORE DEVELOPER) to steady your nerves or to get rid of a hangover? 0 06/25/2025 CAGE Questionnaire Score 0 025 Utilities Answer Date Recorded In the past 12 months has th [employer], gas, oil, or water company threatened to [...] taking 52 units of Lantus daily, and [id number] units for regular meals, and 12 units [...] levels, especially at night? Best contact number: [phone] Optimal time of day to reach caller: [...] Description 08/26/2025 1:00 PM EDT Office Visit [facility] Endocrinology [address] [place] [address] Miranda Hobson, WEAVING INSTRUCTOR [address] [facility] [address] [place] [address] 08/29/2025 10:00 AM EDT Appointment [facility] Inter[facility] Radiology [address] [place] [address] 08/29/2025 11:00 AM EDT Appointment [facility] Inter[facility] Radiology [address] [place] [address] 09/03/2025 8:40 AM EDT Office Visit [facility] [address] [place] [address] Lillie Pritchard MD [address] [place] [address] 09/05/2025 10:00 AM EDT Appointment [facility] Inter[facility] Radiology [address] [place] [address] 09/05/2025 11:00 AM EDT Appointment [facility] Inter[facility] Radiology [address] [place] [address] 09/17/2025 9:45 AM EDT Clinical Support [facility] [place] [address] [facility] [address] [place] [address] 09/17/2025 10:30 AM EDT Social Work [facility] [place] [address] [facility] [place] [address] Lea Reilly, [place] [address] 09/17/2025 11:20 AM EDT Office Visit [facility] [address] [facility] [address] [place] [address] Octavia Herrera, PA [address] [facility] [address] [place] [address] documented as of this encounter Visit Diagnoses [...] as of this encounter Care Teams Cargo And Container Inspector Relationship Specialty Start Date End Date Alvarez Zimmer MD [address] [place] [address] PCP - General Family Medicine 12/07/24 Lea Fernando [address] [facility] [address] [place] [address] Air Brake Operator Endocrinology 08/29/24 Rachel Ray, WEAVING INSTRUCTOR [address] [place] [address] Nurse Practitioner Gastroenterology 09/24/24 Tamera Isabel LPN VALUE-BASED TRANSFORMATION PROGRAM Licensed Practical Nurse 05/29/25 Alina Lovett, RN CH-VASCULAR & INTERVENTIONAL RADIOLOGY Registered Nurse 06/26/25 06/26/25 Monique Tapia LPN VALUE-[place] [address] TCM Nurse 07/10/25 08/09/25 documented as of this encounter
--- OUTSIDE RECORDS SUMMARY | 2025-08-25 15:24 | XMS_ITS | Encounter Summary ---
Author Organization [facility] Address [address] [place] [address] Care Team Providers Care Furniture Crater Name Role Phone Lea Fernando Unavailable [phone] Rachel Ray MAINTENANCE AND REPAIR WORKER Unavailable [phone] Alvarez Zimmer MD Primary Care Provider [phone] Tamera Isabel TELEVISION OPERATOR Unavailable UnavailAlina Bedolla RN Unavailable Unavailab Monique Che TELEVISION OPERATOR Unavailable Unavailable Shaniqua Trevino TELEVISION OPERATOR Unavailable Unavailable Reason for Visit * Reason Onset Date Comments Med Refill 05/21/2025 Encounter Details Date Type Department Care Team (Late st Contact Info) Description 05/21/2025 Refill [facility] [address] [place] [address] Alvarez Zimmer MD [address] [place] [address] Social History Tobacco Use Types [...] you attend [facility] or spiritism services? Patient unable to answer [...] Recorded Patient Health Questionnaire-2 Score 1 05/07/2025 [facility] of Occupat ional Health - [...] drink first t kennedy in the morning (EYE-DATA WAREHOUSING MANAGER) to steady your nerves or to [...] 08/26/2025 1:00 PM EDT Office Visit [facility] Endocrinology [address] [place] [address] Miranda Hobson, MAINTENANCE AND REPAIR WORKER [address] [place] [address] 08/29/2025 10:00 AM EDT Appointment [facility] Interventional Radiology [address] [place] [address] 08/29/2025 11:00 AM EDT Appointment [facility] Interventional Radiology [address] [place] [address] 09/03/2025 8:40 AM EDT Office Visit [facility] [address], [address] [place] [address] Lillie Pritchard MD [address] [place] [id number] 09/05/2025 10:00 AM EDT Appointment [facility] Interventional Radiology [address] [place] [address] 09/05/2025 11:00 AM EDT Appointment [facility] Inter[facility] Radiology [address] [place] [address] 09/17/2025 9:45 AM EDT Clinical Support [facility] [place] [address] [place] [address] 09/17/2025 10:30 AM EDT Social Work [facility] [place] [address] [place] [address] [place] [id number] 09/17/2025 11:20 AM EDT Office Visit [facility] [place] [address] [place] [address] Octavia Herrera, MARIA GUADALUPE [address] [place] [address] documented as of this encounter [...] documented as of this encounter Care Teams Furniture Crater Relationship Specialty Start Date End Date Alvarez Zimmer MD [address] [place] [address] PCP - General Family Medicine 12/07/24 Lea Fernando [address] [place] [address] Conductor Sleeping Car Endocrinology 08/29/24 Rachel Ray APRN [address] [place] [address] Nurse Practitioner Gastroenterology 09/24/24 Tamera Isabel LPN VALUE-BASED TRANSFORMATION PROGRAM Licensed Practical Nurse 05/29/25 Alina Lovett, RN CH-VASCULAR & INTERVENTIONAL RADIOLOGY Registered Nurse 06/26/25 06/26/25 Monique Tapia LPN VALUE-BASED [place] [address] TCM Nurse 07/10/25 08/09/25 Shaniqua Trevino LPN TCM Nurse 08/21/25 documented as of this encounter
--- OUTSIDE RECORDS SUMMARY | 2025-08-25 15:24 | XMS_ITS | Encounter Summary ---
Author Organization [facility] Address [address] [place] [address] Care Team Providers Care Auditing Control Clerk Name Role Phone Lea Fernando Unavailable [phone] Rachel Ray DEPARTMENT CLERK Unavailable [phone] Alvarez Zimmer MD Primary Care Provider [phone] Tmaera Isabel ASSISTANT BUSINESS MANAGER Unavailable UnavailAlina Bedolla RN Unavailable Unavailab Monique Che ASSISTANT BUSINESS MANAGER Unavailable Unavailable Shaniqua Trevino ASSISTANT BUSINESS MANAGER Unavailable Unavailable Reason for Visit * Reason Onset Date Comments Med Refill 05/21/2025 Encounter Details Date Type Department Care Team (Late st Contact Info) Description 05/21/2025 Refill [facility] [address] [facility], [address] [place] [address] Ar Dominique MD [address] [place] [address] Chronic kidney disease, stage 3b [...] do you attend [facility] or tenriism services? Patient unable to answer 01/10/2025 Do [...] Recorded Patient Health Questionnaire-2 Score 1 05/07/2025 [facility] of Occupat ional [...] time in the past [address] [facility], were you homeless or living in [...] drink first t kennedy in the morning (EYE-DIET AID) to steady your nerves or to get [...] Description 08/26/2025 1:00 PM EDT Office Visit [facility] Endocrinology [address] [place] [address] Miranda Hobson, DEPARTMENT CLERK [address] [place] [address] 08/29/2025 10:00 AM EDT Appointment [facility] Interventional Radiology [address] [place] [address] 08/29/2025 11:00 AM EDT Appointment [facility] Interventional Radiology [address] [place] [address] 09/03/2025 8:40 AM EDT Office Visit [place] [address] [facility], [address] [place] [address] Lillie Pritchard MD [address] [place] [address] 09/05/2025 10:00 AM EDT Appointment [facility] Interventional Radiology [address] [place] [address] 09/05/2025 11:00 AM EDT Appointment [facility] Interventional Radiology [address] [place] [address] 09/17/2025 9:45 AM EDT Clinical Support [facility] [place] [address] [place] [address] 09/17/2025 10:30 AM EDT Social Work [facility] [place] [address] [place] [address] Lea Reilly, [place] [address] 09/17/2025 11:20 AM EDT Office Visit [facility] [place] [address] [place] [address] Octavia Herrera, PA [address] [place] [address] documented as of this encounter Visit Diagnoses [...] documented as of this encounter Care Teams Auditing Control Clerk Relationship Specialty Start Date End Date Alvarez Zimmer MD [address] [place] [address] PCP - General Family Medicine 12/07/24 Lea Fernando [address] [place] [address] Library Clerk Talking Books Endocrinology 08/29/24 Rachel Ray, DEPARTMENT CLERK [address] [place] [address] Nurse Practitioner Gastroenterology 09/24/24 Tamera Isabel LPN VALUE-BASED TRANSFORMATION PROGRAM Licensed Practical Nurse 05/29/25 Alina Lovett, RN CH-VASCULAR & INTERVENTIONAL RADIOLOGY Registered Nurse 06/26/25 06/26/25 Monique Tapia LPN VALUE-BASED [place] [address] TCM Nurse 07/10/25 08/09/25 Shaniqua Trevino LPN TCM Nurse 08/21/25 documented as of this encounter
--- OUTSIDE RECORDS SUMMARY | 2025-08-25 15:24 | XMS_ITS | Encounter Summary ---
Author Organization [facility] Address [address] [place] [address] Care Team Providers Care Editor & Co Founder Name Role Phone Wilma Howard Ambar PHARMACY GRAD INTERN Primary Care Provider [phone] Lea Fernando Unavailable [phone] Rachel Ray PHARMACY GRAD INTERN Unavailable [phone] Taina Lyles PHARMACY GRAD INTERN Primary Care Provider Monique Tapia USED CAR RENOVATOR Unavailable Unavailable Alvarez Zimmer MD Primary Care Provider [phone] Shaniqua Trevino LPN Unavailable Unavailable Tamera Isabel USED CAR RENOVATOR Unavailable UnavailAlina Bedolla RN Unavailable Unavailab Monique Che LPN Unavailable Unavailable Shaniqua Trevino LPN Unavailable Unavailable Reason for Visit * Reason Comments Med Refill Encounter Details Date Type Department Care Team (Late st Contact Info) Description 07/28/2021 Refill [facility] [address] [place] [address] Deysi Antonio MD [address] [place] [address] Social History Tobacco Use Types [...] 08/26/2025 1:00 PM EDT Office Visit [facility] Endocrinology [address] [place] [address] Miranda Hobson, PHARMACY GRAD INTERN [address] [facility] [address] [place] [address] 08/29/2025 10:00 AM EDT Appointment [facility] Interventional Radiology [address] [place] [address] 08/29/2025 11:00 AM EDT Appointment [facility] Inter[facility] Radiology [address] [place] [address] 09/03/2025 8:40 AM EDT Office Visit [facility] [address] [facility], [address] [place] [address] Lillie Pritchard MD [address] [place] [address] 09/05/2025 10:00 AM EDT Appointment [facility] Interventional Radiology [address] [place] [address] 09/05/2025 11:00 AM EDT Appointment [facility] Inter[facility] Radiology [address] [place] [address] 09/17/2025 9:45 AM EDT Clinical Support [facility] [place] [address] [place] [address] 09/17/2025 10:30 AM EDT Social Work [facility] [place] [address] [place] [address] Lea Reilly, [place] [address] 09/17/2025 11:20 AM EDT Office Visit [facility] [place] [address] [place] [address] Octavia Herrera, MARIA GUADALUPE [address] [place] [address] documented as of this encounter Visit Diagnoses [...] documented as of this encounter Care Teams Editor & Co Founder Relationship Specialty Start Date End Date Wilma Howard APRN [address] [place] [address] [place] [address] PCP - General 04/03/21 09/30/24 Taina Lyles APRN [address] [place] [address] [place] [address] PCP - General 10/01/24 12/06/24 Alvarez Zimmer MD [facility] [place] [address] PCP - General Family Medicine 12/07/24 Lea Fernando [address] [facility] [address] [place] [address] Sprinkler Irrigation Equipment Mechanic Endocrinology 08/29/24 Rachel Ray APRN [address] [place] [address] Nurse Practitioner Gastroenterology 09/24/24 Monique Tapia LPN VALUE-BASED [place] [address] TCM Nurse 11/28/24 12/28/24 Shaniqua Trevino LPN TCM Nurse 01/15/25 02/14/25 Tamera Isabel LPN VALUE-BASED TRANSFORMATION PROGRAM Licensed Practical Nurse 05/29/25 Alina Lovett, RN CH-VASCULAR & INTERVENTIONAL RADIOLOGY Registered Nurse 06/26/25 06/26/25 Monique Tapia LPN VALUE-BASED [place] [address] TCM Nurse 07/10/25 08/09/25 Shaniqua Trevino LPN TCM Nurse 08/21/25 documented as of this encounter
--- OUTSIDE RECORDS SUMMARY | 2025-08-25 15:24 | XMS_ITS | Encounter Summary ---
Author Organization [facility] Address [address] [place] [address] Care Team Providers Care Inspecting And Testing Lead Hand Name Role Phone Lea Fernando Unavailable [phone] Rachel Ray TIN FLIPPER Unavailable [phone] Alvarez Zimmer MD Primary Care Provider [phone] Tamera Isabel KNIFE GRINDER Unavailable UnavailAlina Bedolla RN Unavailable Unavailab Monique Che KNIFE GRINDER Unavailable Unavailable Encounter Details Date Type Department Care Team (Late st Contact Info) Description 06/14/2025 Telephone [facility] [address] [place] [address] Alvarez Zimmer MD [address] [place] [address] Social History Tobacco Use Types [...] o r organizations such as adventism groups, [employer], [employer] or athletic groups, or school groups? Patient [...] week 05/29/2025 How often do you attend [facility] ch or voodoo services? Never 05/29/2025 Do you belong to any clubs o r organizations such as adventism groups, [employer], [employer] or athletic groups, or school groups? No [...] more drinks on one occasion? Never 06/25/2025 [facility] of Occupat ional Health - Occupational Stress [...] any time in the past 12 m [facility], were you homeless or living [...] drink first t kennedy in the morning (EYE-CHARCOAL UNLOADER) to steady your nerves or to get rid of a hangover? 0 06/25/2025 CAGE Questionnaire Score 0 025 Utilities Answer Date Recorded In the past 12 months has th [employer], gas, oil, or water company threatened to [...] all sorted out and set up in [place]. Pt voiced understanding. * Telephone Encounter - [...] is now staying with her sister in [place] for this assistance. Patient will be staying with her sister until something is set up with palliative care. Patient wants to be back on the transplant list. Please call patient to advise/discuss. Best contact number: [phone] Optimal time of day to reach caller: [...] Description 08/26/2025 1:00 PM EDT Office Visit [facility] [address] [place] [address] Miranda Hobson, TIN FLIPPER [address] [facility] [address] [place] [phone] 08/29/2025 10:00 AM EDT Appointment [facility] [address] [place] [address] 08/29/2025 11:00 AM EDT Appointment [facility] [address] [place] [address] 09/03/2025 8:40 AM EDT Office Visit [facility] [address], [address] [place] [address] Lillie Pritchard MD [address] [place] [address] 09/05/2025 10:00 AM EDT Appointment [facility] [address] [place] [address] 09/05/2025 11:00 AM EDT Appointment [facility] [address] [place] [address] 09/17/2025 9:45 AM EDT Clinical Support [facility] [place] [address] [place] [address] 09/17/2025 10:30 AM EDT Social Work [facility] [place] [address] [place] [address] Lea Reilly, [place] [address] 09/17/2025 11:20 AM EDT [facility] [address] [place] [address] Octavia Herrera, PA [address] [place] [address] documented as of this [...] documented as of this encounter Care Teams Inspecting And Testing Lead Hand Relationship Specialty Start Date End Date Alvarez Zimmer MD [address] [place] [phone] PCP - General Family Medicine 12/07/24 Lea Fernando 2[address] [facility] [address] [place] [address] Cane Pusher Endocrinology 08/29/24 Rachel Ray, TIN FLIPPER [address] [place] [address] Nurse Practitioner Gastroenterology 09/24/24 Tamera Isabel LPN VALUE-BASED TRANSFORMATION PROGRAM Licensed Practical Nurse 05/29/25 Alina Lovett, RN CH-VASCULAR & INTERVENTIONAL RADIOLOGY Registered Nurse 06/26/25 06/26/25 Monique Tapia LPN VALUE-BASED [place] [address] TCM Nurse 07/10/25 08/09/25 documented as of this encounter
--- OUTSIDE RECORDS SUMMARY | 2025-08-25 15:24 | XMS_ITS | Encounter Summary ---
Author Organization Healthcare Address [address] [place] [address] Care Team Providers Care Transfer Machine Operator Name Role Phone Lea Fernando Unavailable [phone] Rachel Ray SENIOR PLANNER Unavailable [phone] Alvarez Zimmer MD Primary Care Provider [phone] Tamera Isabel FOUR CORNER FORMER MACHINE OPERATOR Unavailable UnavailAlina Bedolla RN Unavailable Unavailab le Encounter Details Date Type Department Care Team (Late st Contact Info) Description 05/08/2025 Results Follow-Up [facility] [address] [facility] [address] [place] [address] Wilma Arana, RN HOSPITAL LIVER [id number] [address] [place] [address] Social History Tobacco Use Types [...] o r organizations such as restorationist groups, [employer], [employer] or athletic groups, or school groups? Patient [...] week 05/29/2025 How often do you attend [facility] ch or pentecostal services? Never 05/29/2025 Do you belong to any clubs o r organizations such as restorationist groups, unions, Cert[employer]al or athletic groups, or school groups? No [...] drinks on one occasion? Never 06/25/2025 [facility] of Occupat ional Health - [...] drink first t kennedy in the morning (EYE-API DEVELOPER) to steady your nerves or to get rid of a hangover? 0 06/25/2025 CAGE Questionnaire Score 0 025 Utilities Answer Date Recorded In the past 12 months has th [employer], gas, oil, or water company threatened [...] Description 08/26/2025 1:00 PM EDT Office Visit [facility] Endocrinology [address] [place] [phone] Miranda Hobson, SENIOR PLANNER [address] [place] [address] 08/29/2025 10:00 AM EDT Appointment [facility] [address] [place] [address] 08/29/2025 11:00 AM EDT Appointment [facility] [address] [place] [address] 09/03/2025 8:40 AM EDT Office Visit [facility] [address], [address] [place] [address] Lillie Pritchard MD [address] [place] [address] 09/05/2025 10:00 AM EDT Appointment [facility] [address] [place] [address] 09/05/2025 11:00 AM EDT Appointment [facility] [address] [place] [address] 09/17/2025 9:45 AM EDT Clinical Support [facility] [place] [address] [facility] [address] [place] [address] 09/17/2025 10:30 AM EDT Social Work [facility] [place] [address] [facility] [place] [address] Lea Reilly, [place], [place] [address] 09/17/2025 11:20 AM EDT Office Visit [facility] [place] [address] [facility] [address] [place] [address] Octavia Herrera, PA [address] [facility] [address] [place] [address] documented as of this encounter [...] documented as of this encounter Care Teams Transfer Machine Operator Relationship Specialty Start Date End Date Alvarez Zimmer MD [address] [place] [phone] PCP - General Family Medicine 12/07/24 Lea Fernando 2[address] [facility] 125 [place] [address] Analog Ic Design Architect Endocrinology 08/29/24 Rachel Ray APRN [address] [facility] [address] [place] [address] Nurse Practitioner Gastroenterology 09/24/24 Tamera Isabel LPN VALUE-BASED TRANSFORMATION PROGRAM Licensed Practical Nurse 05/29/25 Alina Lovett, RN CH-VASCULAR & INTERVENTIONAL RADIOLOGY Registered Nurse 06/26/25 06/26/25 documented as of this encounter
== END 2025-08-25 23:59 | disposition home or self-care (01) ==
LOC: LAB.DROPOF 15:12
PROVIDERS: PCP Nurse Practitioner Family; Visit Provider Nurse Practitioner Family
DX: K70.31 Alcoholic cirrhosis of liver with ascites (principal); K76.81 Hepatopulmonary syndrome

== ENCOUNTER 2025-08-25 15:15 | Outpatient (CLI) | payer MEDICARE, MEDICAID, SELFPAY ==
[2025-08-25 15:36] LABS: Hematocrit 26.2 % (37.0-47.0); Hemoglobin 8.6 g/dL (12.2-16.2); Immature Granulocytes % 0.3 %; Mean Corpuscular HGB Conc 32.8 g/dL (31.8-35.4); Mean Corpuscular Hemoglobin 31.3 pg (27.0-31.2); Mean Corpuscular Volume 95.3 fl (81-99); Nucleated Red Blood Cells % 0 %; Platelet Count 57 K/mm3 (142-424); Red Blood Count 2.75 M/mm3 (4.20-5.40); Red Cell Distribution Width-SD 58.9 fL; White Blood Count 3.1 K/mm3 (4.8-10.8)
[2025-08-25 15:54] LABS: Alanine Aminotransferase 20 U/L (12-78); Albumin Level 2.8 g/dl (3.5-5.0); Albumin/Globulin Ratio 0.9 (1.1-1.8); Alkaline Phosphatase 169 U/L (38-126); Ammonia 77 umol/L (9-30); Anion Gap 12.9 mEq/L (5-15); Aspartate Amino Transferase 42 U/L (14-36); Bilirubin,Total 3.0 mg/dl (0.2-1.3); Blood Urea Nitrogen 45 mg/dl (7-17); Calcium 8.8 mg/dl (8.4-10.2); Carbon Dioxide 26 mmol/L (22.0-30.0); Chloride 99 mmol/L (98-107); Creatinine,Serum 1.70 mg/dl (0.52-1.04); Estimated Glomerular Filt Rate 30 ml/min (>60); GFR (African American) 37 ML/MIN (>60); Globulin 3.0 g/dL (1.3-3.2); Glucose 278 mg/dl (74-100); Potassium 3.9 mmoL/L (3.5-5.1); Sodium 134 mmol/L (136-145); Total Protein,Serum 5.8 g/dl (6.3-8.2)
[2025-08-25 19:21] LABS: Total Cells Counted 100
[2025-08-25 19:22] LABS: RBC Morphology Normal
== END 2025-08-25 23:59 | disposition home or self-care (01) ==
LOC: LAB.DROPOF 15:16
PROVIDERS: PCP Nurse Practitioner Family; Visit Provider Nurse Practitioner Family
DX: K70.31 Alcoholic cirrhosis of liver with ascites (principal); K76.81 Hepatopulmonary syndrome
CPT/HCPCS: 80053; 82140; 85007; 85025

== ENCOUNTER 2025-08-25 15:27 | Outpatient (CLI) | payer MEDICARE, MEDICAID, SELFPAY ==
[2025-08-25 15:46] LABS: Microscopic, Urine URINE MICROSCOPIC (MICROSCOPIC)
[2025-08-25 16:44] LABS: Bilirubin,Urine Negative (Negative); Color,Urine YELLOW (Yellow); Glucose,Urine (UA) Negative (Negative); Ketones,Urine Negative (Negative); Leukocyte Esterase,Urine Negative (Negative); PH,Urine 5.5 (5.0-8.5); Protein,Urine Negative (Negative); Specific Gravity, Urine 1.025 (1.005-1.030); Urobilinogen,Urine 0.2 EU/dl (0.2)
[2025-08-25 17:47] LABS: Bacteria,Urine Trace /lpf; WBC,Urine Occasional #/hpf (0-3)
== END 2025-08-25 23:59 | disposition home or self-care (01) ==
LOC: LAB.DROPOF 15:28
PROVIDERS: PCP Nurse Practitioner Family; Visit Provider Nurse Practitioner Family
DX: K70.31 Alcoholic cirrhosis of liver with ascites (principal); K76.81 Hepatopulmonary syndrome
CPT/HCPCS: 81001

== ENCOUNTER 2025-09-02 14:09 | Outpatient (CLI) | payer MEDICARE, MEDICAID, SELFPAY ==
[2025-09-02 16:43] LABS: Microscopic,Cath URINE MICROSCOPIC (MICROSCOPIC)
[2025-09-02 17:25] LABS: Appearance,Urine/Cath CLEAR (Clear); Bilirubin,Cath Negative (Negative); Blood, Urine/Cath Negative (Negative); Color,Urine/Cath YELLOW (Yellow); Glucose,Urine/Cath (UA) Negative (Negative); Ketones,Urine/Cath Negative (Negative); Leukocyte Esterase,Cath Negative (Negative); Nitrate,Cath Negative (Negative); PH,Urine/Cath 5.5 (5.0-8.5); Protein,Urine/Cath Negative (Negative); Specific Gravity, Urine/Cath 1.015 (1.005-1.030); Urobilinogen,Cath 0.2 EU/dl (0.2)
[2025-09-02 18:19] LABS: WBC,Urine/Cath Occasional #/hpf (0-3)
== END 2025-09-02 23:59 | disposition home or self-care (01) ==
LOC: LAB.DROPOF 14:17
PROVIDERS: PCP Internal Medicine Adolescent Medicine; Visit Provider Nurse Practitioner Family
DX: N18.32 Chronic kidney disease, stage 3b (principal); N39.0 Urinary tract infection, site not specified
CPT/HCPCS: 81001

== ENCOUNTER 2025-09-15 01:21 | Outpatient (CLI) | payer MEDICARE, MEDICAID, SELFPAY ==
--- OUTSIDE RECORDS SUMMARY | 2023-07-07 19:50 | XMS_ITS | Encounter Summary ---
Author Organization [facility] Address [address] [place] [address] Care Team Providers Care Distribution Operations Supervisor Name Role Phone Taina Lyles APRN Primary Care Provider Reason for Referral * Hospital - Outpatient (Routine) - Closed Specialty Diagnoses / Procedures Referred By dEer zhu Referred To Contact Diagnoses JONATHAN (obstructive sleep apnea) Obesity (BMI 30-39.9) Nocturnal hypoxia Procedures Polysomnography 4 or More Parameters With CPAP Whitney Agarwal MD [address] [place] [address] Phone: tel: fax: Referral ID Status Reason Start Date Expiration Date Visits Re quested Visits Authorized [id number] Closed 04/14/2023 04/13/2024 1 1 Reason for Visit * Hospital - Outpatient (Routine) - Closed Specialty Diagnoses / Procedures Referred By Eder zhu Referred To Contact Diagnoses JONATHAN (obstructive sleep apnea) Obesity (BMI 30-39.9) Nocturnal hypoxia Procedures Polysomnography 4 or More Parameters With CPAP Whitney Agarwal MD [address] [place] [address] [address] Phone: tel: fax: Referral ID Status Reason Start Date Expiration Date Visits Re quested Visits Authorized [id number] Closed 04/14/2023 04/13/2024 1 1 Encounter Details Date Type Department Care Team (Latest Contact Info) Description 07/07/2023 7:50 PM EDT Hospital Encounter [facility] PR[facility]ELDER DI[facility] [address] [place] [address] Whitney Agarwal MD [address] [facility] [address] [place] [address] JONATHAN (obstructive sleep apnea); Obesity [...] Pulmonary, Critical Care, and Sleep Medicine Whitney Agarawl M.D. [address] [facility] [address] Medical Office [address], [place]. [address]. CPAP/BiPAP TITRATION INTERPRETATION Date of Study: 07/07/2023 [...] Pulmonary, Critical Care and Sleep Medicine at [phone], if you have any questions about this [...] documented as of this encounter Care Teams Distribution Operations Supervisor Relationship Specialty Start Date End Date Taina Lyles APRN PCP - General Nurse Practitioner 12/30/22 documented as of this encounter
--- OUTSIDE RECORDS SUMMARY | 2025-07-18 09:08 | XMS_ITS | Encounter Summary ---
Author Organization [facility] Address [address] [place] [address] Care Team Providers Care Supervisor Money Room Name Role Phone Lea Fernando Unavailable [phone] Rachel Ray TICKET WRITER Unavailable [phone] Alvarez Zimmer MD Primary Care Provider [phone] Tamera Isabel RESEARCH ELECTRICIAN Unavailable Unavailabl Monique Garay RESEARCH ELECTRICIAN Unavailable Unavailable Reason for Referral * Clinic-Administered Medication (Routine) - Closed Specialty Diagnoses / Procedures Referred By Contac t Referred To Contact Diagnoses Other ascites Procedures MD ALBUMIN (HUMAN), 25%, 50ML Shaniqua Mccurdy APRN [address] [place] [address] Phone: tel: fax: Referral ID Status Reason Start Date Expiration Date Visits Re quested Visits Authorized [id number] Closed 07/18/2025 01/17/2027 1 1 * Imaging (Routine) - Closed Specialty Diagnoses / Procedures Referred By Contac t Referred To Contact Radiology Diagnoses Other ascites Procedures US Guided Abdominal Paracentesis [place] [address] Phone: tel: fax: Referral ID Status Reason Start Date Expiration Date Visits Re quested Visits Authorized [id number] Closed 06/14/2025 12/14/2026 1 1 * Imaging (Routine) - Closed Specialty Diagnoses / Procedures Referred By Contac t Referred To Contact Radiology Diagnoses Shortness of breath Pleural effusion Procedures US Guided Thoracentesis Marianna Gordon APRN [address] [place] [address] Phone: tel: fax: Referral ID Status Reason Start Date Expiration Date Visits Re quested Visits Authorized [id number] Closed 06/14/2025 12/14/2026 1 1 Reason for Visit * Imaging (Routine) - Closed Specialty Diagnoses / Procedures Referred By Contac t Referred To Contact Radiology Diagnoses Shortness of breath Pleural effusion Procedures US Guided Thoracentesis Marianna Gordon APRN [address] [place] [address] Phone: tel: fax: Referral ID Status Reason Start Date Expiration Date Visits Re quested Visits Authorized [id number] Closed 06/14/2025 12/14/2026 1 1 Encounter Details Date Type Department Care Team (Latest Contact Info) Description 07/18/2025 9:08 AM EDT - 07/18/2025 12:07 PM EDT Hospital Encounter [facility] Interventional Radiology [address] [place] [address] Stu Samayoa Shortness of breath; Pleural effusion; [...] week 01/10/2025 How often do you attend [facility] ch or zoroastrianism services? Patient unable to answer 01/10/2025 Do you belong to any clubs o r organizations such as buddhist groups, unions, fraternal or athletic groups, or [...] week 05/29/2025 How often do you attend [facility] ch or zoroastrianism services? Never 05/29/2025 Do you belong to any clubs o r organizations such as buddhist groups, unions, fraternal or athletic groups, or [...] more drinks on one occasion? Never 06/25/2025 [facility] [...] first t kennedy in the morning (EYE-SUPERVISOR ANODIZING) to steady your nerves or to get rid of a hangover? 0 06/25/2025 CAGE Questionnaire Score 0 025 Utilities Answer Date Recorded In the past 12 months has th [email or web address], gas, oil, or water company threatened to [...] call: [facility] Inter[facility]iology Clinic at [phone] Tuesday - Tuesday 8:00 AM to 4:30 PM After hours, weekends, and holidays please call [phone] and ask for the Interventional Radiology provider/Resident on-call Intervention Radiology Appointments: If you need to reschedule a procedure, please call our Schedulers at [phone], option 4. If you need to schedule or reschedule a clinic appointment, please call [phone]. [facility] [address] [place] [address] documented in this encounter Medications at Time of Discharge Accu-Chek Guide Test test strip 03/27/2025 Accu-Chek Guide Test test strip 02/12/2025 calcitriol (Rocaltrol) 0.25 MCG capsuleIndication s:Chronic kidney [...] 1 03/01/2025 ergocalciferol (Vitamin D-2) 1.25 MG (38899 UT) capsuleIndication s:Vitamin D deficiency Take 1 capsule by mouth 1 time per week. 4 capsule 06/27/2025 Glucagon, rDNA, (Glucagon Emergency) 1 MG kit 07/09/2025 insulin glargine-yfgn 100 UNIT/ML injection vial Inject 24 Units under the skin daily. 07/09/2025 insulin lispro (Admelog) 100 UNIT/ML injection Inject 0-10 Units under the skin 3 times a day with meals. See After Visit Summary for instructions on how to take your insulin. 07/09/2025 insulin lispro (Admelog, HumaLOG) 100 UNIT/ML injection pen 07/09/2025 lactulose (Chronulac) 10 GM/15ML solution Take 30 mL by mouth 3 times a day. 2700 mL 11 05/07/2025 Lantus SoloStar 100 UNIT/ML injection pen 07/09/2025 Magnesium Oxide -Mg Supplement 500 MG tablet 07/09/2025 Magnesium Oxide, Laxative, 500 MG tabletIndications :Hypomagnesemia Take 1 tablet by mouth daily. 90 tablet 3 04/01/2025 midodrine (Proamatine) 5 MG tablet Take 3 tablets by mouth 3 times a day. 07/09/2025 Multiple Vitamins-Minerals (COMPLETE WOMENS PO) Take 1 tablet by mouth in the morning. 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 60 tablet 11 06/03/2025 6 senna (Senokot) 8.6 MG tablet Take 1 tablet by mouth nightly. 07/09/2025 prochlorperazine (Compazine) 5 MG tablet Take 1 tablet by mouth every 8 hours as needed for nausea or vomiting. 60 tablet 2 07/09/2025 5 Abaloparatide (Tymlos) 3120 MCG/1.56ML solution [...] Visit: July 03, 2025 Requesting Service: Fabiana Cunnnigham MD Chief Complaint: Abnormal lab History of [...] - Any questions with scheduling please call [phone] - Please place orders for desired fluid studies to be sent for analysis prior to procedure Thank you for allowing us to participate in the care of this patient. Micheal Glasgow, TICKET WRITER, DNP Interventional Radiology [phone] [1] Past Medical History: Diagnosis Date ADHD (attention deficit hyperactivity disorder) Allergic Anxiety disorder, unspecified Anxiety Bleeding gums Blood in urine Cataract Chronic kidney disease Cirrhosis (CMS/HCC) Colon cancer screening 09/20/2019 Added automatically from request for surgery [id number] Coronary artery disease Depression 1996 Diabetes mellitus [...] 1979 BLADDER SURGERY N/A Bladder surgery from [facility] BREAST BIOPSY 2011 BREAST SURGERY 2010 BUNIONECTOMY Right CATARACT EXTRACTION Bilateral 2016 CHOLECYSTECTOMY 1979 ESOPHAGOGASTRODUODENOSCOPY HYSTERECTOMY N/A Hysterectomy from [facility] KNEE SURGERY Bilateral ORAL SURGERY N/A Oral surgery from [facility] OTHER SURGICAL HISTORY 2014 ROOT CANAL WISDOM TOOTH EXTRACTION [3] Social History Tobacco Use Smoking status: Never Passive exposure: Never Smokeless tobacco: Never Vaping Use Vaping status: Never Used Substance Use Topics Alcohol use: Not Currently Drug use: Never [4] No Known Allergies [5] Current Facility-Administered Medications: albumin human 25 % infusion 12.5 g, 12.5 g, Intravenous, q15 min PRN, Marianna Gordon N, TICKET WRITER albumin human 25 % infusion 87.5 g, 1 g/kg, Intravenous, q24h, Dayne Medel R, DO, 87.5 g at 07/02/25 1227 benzonatate (Tessalon) capsule 100 mg, 100 mg, Oral, TID PRN, Veronica Del Valle K, DO calcitriol (Rocaltrol) capsule 0.25 mcg, 0.25 mcg, Oral, Daily, Blayne Zimmer S, DO, 0.25 mcg at 07/03/25 0935 calcium carbonate (Tums) chewable tablet 750 mg, 750 mg, Oral, Daily, Blayne Zimmer, , 750 mg at07/03/25 09 capsaicin (Zostrix) 0.025 % cream, , Topical, BID PRN, Blayne Zimmer DO cetirizine (ZyrTEC) tablet 10 mg, 10 mg, Oral, Daily, Blayne Zimmer, , 10 mg at 07/03/25 0935 cholecalciferol (Vitamin D-3) tablet 1,000 Units, 1,000 Units, Oral, Daily, Blayne Zimmer DO, 1,000 Units at 07/03/25 09 ciprofloxacin (Cipro) tablet 500 mg, 500 mg, Oral, Daily, Blanye Zimmer, , 500 mg at 07/03/25 09 glucose (Glutose) 40 % oral gel [...] Irvin Ball MD, 5,000 Units at 07/03/25 09 insulin glargine-yfgn 100 UNIT/ML injection 24 Units, [...] mg, 400 mg, Oral, Daily, Blayne Zimmer S, DO, 400 mg at 111 midodrine (Proamatine) tablet 15 mg, 15 mg, Oral, TID, Dayne Medel R, DO, 15 mg at 07/03/25 0935 rifAXIMin (Xifaxan) tablet 550 mg, 550 mg, Oral, BID, Blayne Zimmer S, DO, 550 mg at 07/03/25 0934 [COMPLETED] [...] 10 mL, Intravenous, PRN, Maria Dolores Ontiveros, ANGELLA RUSH documented in this encounter Plan of Treatment Upcoming Encounters Date Type Department Care Team (Late st Contact Info) Description 09/17/2025 9:45 AM EDT Clinical Support [facility] [place] [address] [place] [address] 09/17/2025 10:30 AM EDT Social Work [facility] [place] [address] [place] [address] Lea Reilly, [place] [address] 09/17/2025 11:20 AM EDT Office Visit [facility] [place] [address] [place] [address] Octavia Herrera, PA [address] [place] [address] 09/19/2025 10:30 AM EDT Appointment [facility] Inter[facility] Radiology [address] [place] [address] 09/19/2025 11:30 AM EDT Appointment [facility] Inter[facility]iology [address] [place] [address] 09/26/2025 7:30 AM EST Appointment [facility]iology [address] [place] [address] 09/26/2025 8:30 AM EST Appointment [facility]iology [address] [place] [address] 10/01/2025 9:00 AM EST Office Visit [facility] [address], [address] [place] [address] Lillie Pritchard MD [address] [place] [address] 10/03/2025 12:30 PM EST Appointment [facility] Inter[facility] Radiology [address] [place] [address] 10/03/2025 1:30 PM EST Appointment [facility] Inter[facility] Radiology [address] [place] [address] 12/20/2025 11:00 AM EST Office Visit [facility] Endocrinology [address] [place] [address] Miranad Hobson, TICKET WRITER [address] [facility] [address] [place] [phone] documented as of this encounter Procedures Procedure [...] on 07/18/2025 12:56 PM us Shaniqua Mccurdy TICKET WRITER IMG XR PROCEDURES Final Resu lt * [...] complicated by ascites and hepatic hydrothorax. TECHNIQUE: Creasing [employer] Cutting Press Feeder: Shaniqua Mccurdy APRN Secondary Laborer [place]: None. Rad Dose: NA Medications: Continuous physiologic [...] cirrhosis complicated by ascites andhepatic hydrothorax. TECHNIQUE: Creasing And Cutting Press Feeder: Shaniqua Mccurdy APRN Secondary Laborer [place]: Aparna. Rad Dose: NA Medications: Continuous physiologic [...] written report. Preliminary report signed by SOLANGE Signleton on 07/18/2025 12:19 PM By electronically signing this report, I, the attending physician, attestthat I was not present for the procedure(s) but agree with the finaledited report. Drafted by SOLANGE Singleton on 07/18/2025 12:17 PM Final report signed by Ck Palacios MD on 07/18/2025 2:18 PM us Marianna Gordon ADRI IMG US [...] by ascites and recurrent hepatic hydrothorax. TECHNIQUE: Creasing And Cutting Press Feeder: Shaniqua Mccurdy APRN Secondary Laborer [place]: None. Rad Dose: NA Medications: Continuous physiologic [...] complicated by ascites andrecurrent hepatic hydrothorax. TECHNIQUE: Creasing And Cutting Press Feeder: Shaniqua Mccurdy APRN Secondary Laborer [place]: Aparna. Rad Dose: NA Medications: Continuous physiologic [...] on 07/18/2025 2:18 PM us Marianna Gordon TICKET WRITER IMG US PROCEDURES Final Resu lt * Body fluid, cytospin, pathologist interpretation (07/18/2025 10:23 AM EDT) Specimen Type Body Fluid LAB HEMATOLOGY METHOD 07/19/2025 12:51 PM EDT [facility] Specimen Source, Body Fluid Peritoneal Fluid LAB HEMATOLOGY METHOD 07/19/2025 12:51 PM EDT [facility] Clinical Diagnosis, Body Fluid Ascites LAB HEMATOLOGY METHOD 07/19/2025 12:51 PM EDT [facility] Interpretation , Body Fluid No evidence of malignancy Predominantly chronic inflammatory cells Light blood A resident was involved in the service. I attest I examined the relevant preparations for the specimens and confirmed the diagnosis or interpretation. 07/19/2025 12:51 PM EDT [facility] Pathologist Signature, Body Fluid 07/19/2025 12:51 PM EDT [facility] Comment:Reviewed by: Kadie dobbs MD LAB CP ASR DISCLAIMER Yes 07/19/2025 12:51 PM EDT [facility] Body Fluid Peritoneal fluid / Unknown Non-blood Collection / Unknown 07/18/2025 10:23 AM EDT 07/18/2025 12:01 PM EDT us Shaniqua Mccurdy APRN LAB BODY FLUIDS AND STOOLS O RDERABLES Final Result [facility] [address] [place] [address] * Glucose - Ascites (07/18/2025 10:23 AM EDT) Glucose, Fluid 197 mg/dL 07/18/2025 1:43 PM EDT [facility] Peritoneal Fluid Peritoneal cavity structure / Unknown Non-blood Collection / Unknown 07/18/2025 10:23 AM EDT 07/18/2025 12:01 PM EDT Narrative [facility] - 07/18/2025 1:43 PM [...] 3) Glucose < 50 mg/dL. Shaniqua Mccurdy APRN LAB BODY FLUIDS AND STOOLS O RDERABLES Final Result Performing Organization Address [facility] Co de Phone Number [facility] [address] [place] [phone] * Protein - Ascites (07/18/2025 10:23 AM EDT) Total Protein, Fluid 1.3 g/dL 07/18/2025 1:43 PM EDT [facility] Peritoneal Fluid Peritoneal cavity structure / Unknown Non-blood Collection / Unknown 07/18/2025 10:23 AM EDT 07/18/2025 12:01 PM EDT Narrative [facility] - 07/18/2025 1:43 PM EDT This test was developed and its performance characteristics determined by [facility]. The U.S. Food and Drug Administration has not approved or cleared this test. However, FDA clearance or approval is not currently required for clinical use. The results are not intended to be used as the sole means for clinical diagnosis or patient management decisions. us Shaniqua Mccurdy APRN LAB BODY FLUIDS AND STOOLS O RDERABLES Final Result Performing Organization Address [facility] Co de Phone Number [facility] [address] [place] [address] * (ABNORMAL) Body Fluid Cell Count With Diff - Ascites (07/18/2025 10:23 AM EDT) Color, Body fluid Yellow LAB HEMATOLOGY METHOD 07/18/2025 4:15 PM EDT [facility] Appearance, Body fluid Cloudy(A) LAB HEMATOLOGY METHOD 07/18/2025 4:15 PM EDT [facility] Volume, Body fluid 8.0 cc LAB HEMATOLOGY METHOD 07/18/2025 4:15 PM EDT [facility] Fluid Container Tube 2 LAB HEMATOLOGY METHOD 07/18/2025 4:15 PM EDT [facility] Red Blood Cell Count, Body fluid 7,000 uL LAB HEMATOLOGY METHOD 07/18/2025 4:15 PM EDT [facility] Total Nucleated Cell Count, Body fluid 175 uL LAB HEMATOLOGY METHOD 07/18/2025 4:15 PM EDT [facility] Neutrophils %, Body fluid 3 % LAB HEMATOLOGY METHOD 07/18/2025 4:15 PM EDT [facility] Lymphocytes %, Body fluid 72 % LAB HEMATOLOGY METHOD 07/18/2025 4:15 PM EDT [facility] Monocytes/Macro phages %, Body fluid 22 % LAB HEMATOLOGY METHOD 07/18/2025 4:15 PM EDT [facility] Eosinophils %, Body fluid 0 % LAB HEMATOLOGY METHOD 07/18/2025 4:15 PM EDT [facility] Lining/Mesothel ial Cells %, Body fluid 3 % LAB HEMATOLOGY METHOD 07/18/2025 4:15 PM EDT [facility] Neutrophils Absolute (PMN), Body fluid 5 uL LAB HEMATOLOGY METHOD 07/18/2025 4:15 PM EDT [facility] Lymphocytes Absolute, Body fluid 126 uL LAB HEMATOLOGY METHOD 07/18/2025 4:15 PM EDT [facility] Monocytes/Macro phages Absolute, Body fluid 39 uL LAB HEMATOLOGY METHOD 07/18/2025 4:15 PM EDT [facility] Eosinophils Absolute, Body fluid 0 uL LAB HEMATOLOGY METHOD 07/18/2025 4:15 PM EDT [facility] Basophils Absolute, Body fluid 0 uL LAB HEMATOLOGY METHOD 07/18/2025 4:15 PM EDT [facility] Lining/Mesothel ial Cells Absolute, Body fluid 5 uL LAB HEMATOLOGY METHOD 07/18/2025 4:15 PM EDT [facility] Basophils %, Body fluid 0 % LAB HEMATOLOGY METHOD 07/18/2025 4:15 PM EDT [facility] Body Fluid Peritoneal fluid / Unknown Non-blood Collection / Unknown 07/18/2025 10:23 AM EDT 07/18/2025 12:01 PM EDT us Shaniqua Mccurdy TICKET WRITER LAB BODY FLUIDS AND STOOLS ORDERABLES NO SPECIMEN TYPE/SOURCE Final Result [facility] [address] [place] [address] documented in this encounter Visit Diagnoses Diagnosis [...] as of this encounter Care Teams Supervisor Money Room Relationship Specialty Start Date End Date Alvarez Zimmer MD [address] [place] [address] PCP - General Family Medicine 1/17/25 10/13/25 Lea Fernando [address] [place] [address] Development Rep Endocrinology 08/29/24 Rachel Ray APRN [address] [place] [address] Nurse Practitioner Gastroenterology 09/24/24 Tamera Isabel LPN VALUE-BASED TRANSFORMATION PROGRAM Licensed Practical Nurse 05/29/25 Monique Tapia LPN [employer] [address] TCM Nurse 07/10/25 08/09/25 documented as of this encounter
--- OUTSIDE RECORDS SUMMARY | 2025-07-18 12:08 | XMS_ITS | Encounter Summary ---
Author Organization [facility] Address [address] [place] [address] Care Team Providers Care Founder And President Name Role Phone Lea Fernando Unavailable [phone] Rachel Ray HAIRMASTERS MANAGER Unavailable [phone] Alvarez Zimmer MD Primary Care Provider [phone] Tamera Isabel DOUBLE BACK OPERATOR Unavailable Unavailabl Monique Garay DOUBLE BACK OPERATOR Unavailable Unavailable Encounter Details Date Type Department Care Team (Latest Contact Info) Description 07/18/2025 12:08 PM EDT - 07/18/2025 11:59 PM EDT Hospital Encounter [facility] Rad[facility] [address] [place] [address] Discharge Disposition: Home or Self Care Social [...] week 01/10/2025 How often do you attend [facility] or evangelical services? Patient unable to answer 01/10/2025 Do you belong to any clubs o r organizations such as baptist groups, unions, [employer] or athletic groups, or school groups? Patient [...] often do you attend chur ch or evangelical services? Never 05/29/2025 Do you belong to [...] more drinks on one occasion? Never 06/25/2025 [facility] - Occupational Stress Questionnaire Answer [...] time in the past 12 m [facility], were you homeless or living in a [...] drink first t kennedy in the morning (EYE-WEB SERVICES DEVELOPER) to steady your nerves or to get rid of a hangover? 0 06/25/2025 CAGE Questionnaire Score 0 025 Utilities Answer Date Recorded In the past 12 months has th e [employer], gas, oil, or water [employer] threatened to shut off services in your [...] 1 03/01/2025 ergocalciferol (Vitamin D-2) 1.25 MG (86695 UT) capsuleIndication s:Vitamin D deficiency Take 1 capsule by mouth 1 time per week. 4 capsule 06/27/2025 6 Glucagon, rDNA, (Glucagon Emergency) 1 MG kit [...] Description 09/17/2025 9:45 AM EDT Clinical Support [facility] [place] [address] [employer] [facility] [address] [place] [address] 09/17/2025 10:30 AM EDT Social Work [facility] [place] [address] [facility] [place] [address] Lea Reilly, [place] [address] 09/17/2025 11:20 AM EDT Office Visit [facility] [place] [address] [employer] [facility] [address] [place] [address] Octavia Herrera, MARIA GUADALUPE [address] [facility] [address] [place] [address] 09/19/2025 10:30 AM EDT Appointment [facility]iology [address] [place] [address] 09/19/2025 11:30 AM EDT Appointment [facility]iology [address] [place] [address] 09/26/2025 7:30 AM EST Appointment [facility]iology [address] [place] [address] 09/26/2025 8:30 AM EST Appointment [facility]iology [address] [place] [address] 10/01/2025 9:00 AM EST Office Visit [facility] [address] [place] [address] Lillie Pritchard MD [address] [place] [address] 10/03/2025 12:30 PM EST Appointment [facility] [address] [place] [address] 10/03/2025 1:30 PM EST Appointment [facility] Inter[facility] Radiology [address] [place] [address] 12/20/2025 11:00 AM EST Office Visit [facility] Endocrinology [address] [place] [address] Miranda Hobson, HAIRMASTERS MANAGER [address] [place] [address] documented as of this encounter Procedures Procedure [...] on 07/18/2025 12:56 PM us Shaniqua Mccurdy HAIRMASTERS MANAGER IMG XR PROCEDURES Final Resu lt documented [...] documented as of this encounter Care Teams Founder And President Relationship Specialty Start Date End Date Alvarez Zimmer MD [address] [place] [address] PCP - General Family Medicine 12/07/24 09/02/25 Lea Fernando [address] [facility] [address] [place] [address] Military Aircraft Designer Endocrinology 08/29/24 Rachel Ray APRN [address] [employer] [address] [place] [address] Nurse Practitioner Gastroenterology 09/24/24 Tamera Isabel LPN VALUE-BASED TRANSFORMATION PROGRAM Licensed Practical Nurse 05/29/25 Monique Tapia LPN VALUE-[place]ED [place] [address] TCM Nurse 07/10/25 08/09/25 documented as of this encounter
--- OUTSIDE RECORDS SUMMARY | 2025-07-25 08:57 | XMS_ITS | Encounter Summary ---
Author Organization [facility] Address [address] [place] [address] Care Team Providers Care Computer Tech Name Role Phone Lea Fernando Unavailable [phone] Rachel Ray OR MANAGER Unavailable [phone] Alvarez Zimmer MD Primary Care Provider [phone] Tamera Isabel CARRY OUT CLERK Unavailable Unavailabl Monique Garay CARRY OUT CLERK Unavailable Unavailable Reason for Referral * Imaging (Routine) - Closed Specialty Diagnoses / Procedures Referred By Contac t Referred To Contact Radiology Diagnoses Other ascites Procedures US Guided Abdominal Paracentesis Marianna Gordon APRN [address] [place] [address] Phone: tel: fax: Referral ID Status Reason Start Date Expiration Date Visits Re quested Visits Authorized [id number] Closed 06/14/2025 12/14/2026 1 1 * Imaging (Routine) - Closed Specialty Diagnoses / Procedures Referred By Contac t Referred To Contact Radiology Diagnoses Shortness of breath Pleural effusion Procedures US Guided Thoracentesis Marianna Gordon APRN [address] [place] [address] Phone: tel: fax: Referral ID Status Reason Start Date Expiration Date Visits Re quested Visits Authorized [id number] Closed 06/14/2025 12/14/2026 1 1 * Clinic-Administered Medication (Routine) - Closed Specialty Diagnoses / Procedures Referred By Eder zhu Referred To Contact Diagnoses Other ascites Procedures MD ABDOM PARACENTESIS DX/THER W IMAGING GUIDANCE Marianna Gordon APRN [address] [place] [address] Phone: tel: fax: [facility] [address] [place] [address] Phone: tel: fax: Referral ID Status Reason Start Date Expiration Date Visits Re quested Visits Authorized [id number] Closed 07/25/2025 01/24/2027 1 1 Reason for Visit * Imaging (Routine) - Closed Specialty Diagnoses / Procedures Referred By Eder zhu Referred To Contact Radiology Diagnoses Shortness of breath Pleural effusion Procedures US Guided Thoracentesis Marianna Gordon APRN [address] [place] [address] Phone: tel: fax: Referral ID Status Reason Start Date Expiration Date Visits Re quested Visits Authorized [id number] Closed 06/14/2025 12/14/2026 1 1 Encounter Details Date Type Department Care Team (Late st Contact Info) Description 07/25/2025 8:57 AM EDT - 07/25/2025 1:19 PM EDT Hospital Encounter [facility] Interventional Radiology [address] [place] [address] Kandice Silva, RN [facility]-VASCULAR & INTERVENTIONAL RADIOLOGY [...] do you attend [facility] or [facility] services? Patient unable to answer [...] you attend [facility] or baptist services? Never 05/29/2025 Do you [...] more drinks on one occasion? Never 06/25/2025 [facility] - Occupational Stress Questionnaire Answer Date [...] t kennedy in the morning (EYE-REAL ESTATE RECRUITER) to steady your nerves or to get [...] call: Vascular and Interventional Radiology Clinic at [phone] Tuesday - Tuesday 8:00 AM to 4:30 PM After hours, weekends, and holidays please call [phone] and ask for the Interventional Radiology provider/Resident on-call Intervention Radiology Appointments: If you need to reschedule a procedure, please call our Schedulers at [phone], option [phone]. If you need to schedule or reschedule a clinic appointment, please call [phone]. [facility] Interventional Radiology [facility] [address] [place] [address] documented in this encounter Medications at Time [...] 1 03/01/2025 ergocalciferol (Vitamin D-2) 1.25 MG (35704 UT) capsuleIndication s:Vitamin D deficiency Take 1 [...] of this encounter Miscellaneous Notes * Kandice Gamez, RN - 07/25/2025 12:56 PM EDT Images from the original note were not included. [id number] Discharge Instructions for Thoracentesis Thoracentesis is a [...] blood. Last Reviewed Date: 2025 00:00:00 ?? [id number] [employer]. All rights reserved. This information is not intended as a substitute for professional medical care. Always follow your healthcare professional's instructions. * John Vargas - Kandice Silva RN - 07/25/2025 12:55 PM EDT Images from the original note were not included. [id number] Discharge Instructions for Paracentesis Paracentesis is a [...] fainting. Last Reviewed Date: 2025 00:00:00 ?? [id number] [employer]. All rights reserved. This information is not intended as a substitute for professional medical care. Always follow your healthcare professional's instructions. * Post-Procedure Note - Fabiana Renee APRN, DNP - 07/25/2025 10:30 AM EDT Vascular and Interventional Radiology Brief Postprocedure Note Performed by: Fabiana Renee APRN Repairer [employer]: Maria Dolores Ontiveros APRN Pre-operative Diagnosis: ascites [...] - Any questions with scheduling please call [phone] - Please place orders for desired fluid studies to be sent for analysis prior to procedure Thank you for allowing us to participate in the care of this patient. Micheal Glasgow, ADRI, DNP Interventional Radiology [phone] [1] Past Medical History: Diagnosis Date ADHD (attention deficit hyperactivity disorder) Allergic Anxiety disorder, unspecified Anxiety Bleeding gums Blood in urine Cataract Chronic kidney disease Cirrhosis (CMS/HCC) Colon cancer screening 09/20/2019 Added automatically from request for surgery [id number] Coronary artery disease Depression 1995 Diabetes mellitus [...] 1979 BLADDER SURGERY N/A Bladder surgery from [facility] BREAST BIOPSY 2011 BREAST SURGERY 2010 BUNIONECTOMY Right CATARACT EXTRACTION Bilateral 2016 CHOLECYSTECTOMY 1979 ESOPHAGOGASTRODUODENOSCOPY HYSTERECTOMY N/A Hysterectomy from [facility] KNEE SURGERY Bilateral ORAL SURGERY N/A Oral surgery from [facility] OTHER SURGICAL HISTORY 2014 ROOT CANAL WISDOM TOOTH EXTRACTION [3] Social History Tobacco Use Smoking status: Never Passive exposure: Never Smokeless tobacco: Never Vaping Use Vaping status: Never Used Substance Use Topics Alcohol use: Not Currently Drug use: Never [4] No Known Allergies [5] Current Facility-Administered Medications: albumin human 25 % infusion 12.5 g, 12.5 g, Intravenous, q15 min PRN, Marianna Gordon, OR MANAGER albumin human 25 % infusion 87.5 g, 1 g/kg, Intravenous, q24h, Dayne Medel R, DO, 87.5 g at 07/02/25 1227 benzonatate (Tessalon) capsule 100 mg, 100 mg, Oral, TID PRN, Veronica Del Valle, DO calcitriol (Rocaltrol) capsule 0.25 mcg, 0.25 [...] 0-3 Units, Subcutaneous, Twice atnight, Blayne Zimmer S, DO lactulose (Chronulac) 10 GM/15ML solution 20 g, 20 g, Oral, TID, Blayne Zimmer S, DO, 20 g at 07/03/25 0934 magnesium [...] Description 09/17/2025 9:45 AM EDT Clinical Support [facility] [place] [id number] [address] 09/17/2025 10:30 AM EDT Social Work [facility] [place] [address] [address] Lea Reilly, [place] [address] 09/17/2025 11:20 AM EDT Office Visit [facility] [address] [place] [address] Octavia Herrera, PA [address] [place] [address] 09/19/2025 10:30 AM EDT Appointment [facility] Inter[facility] Radiology [address] [place] [id number] 09/19/2025 11:30 AM EDT Appointment [facility]iology [address] [place] [address] 09/26/2025 7:30 AM EST Appointment [facility]iology [address] [place] [address] 09/26/2025 8:30 AM EST Appointment [facility] Inter[facility] Radiology [address] [place] [address] 10/01/2025 9:00 AM EST Office Visit [facility] [address] [place] [address] Lillie Pritchard MD [address] [place], [place] [id number] 10/03/2025 12:30 PM EST Appointment [facility] Inter[facility]iology [address] [place] [address] 10/03/2025 1:30 PM EST Appointment [facility]iology [address] [place] [address] 12/20/2025 11:00 AM EST Office Visit [facility] Endocrinology [address] [place] [address] Miranda Hobson, OR MANAGER [address] [facility] [address] [place] [phone] documented as of this encounter Procedures Procedure [...] 07/25/2025 2:24 PM EDT [facility] Sales Contract Administrator ID Kandice Silva 07/25/20 2:24 PM EDT [facility] Device ID [id number] 07/25/2025 2:24 PM EDT HEALTHCARE LAB Specimen Type POC Capillary 07/25/2025 2:24 PM EDT [facility] Blood Capillary blood specimen / Unknown 07/25/2025 2:23 PM EDT 07/25/2025 2:24 PM EDT us Kandice Silva INDUSTRIAL MAINTENANCE REPAIRER HELPER POINT OF CARE TE ST DOCKED DEVICE UNSOLICITED RESULTS Final Result [facility] [address] [place] [address] * XR Chest 1 View (07/25/2025 1:46 [...] cirrhosis with ascites and hepatic hydrothorax. TECHNIQUE: [employer] Manager: Fabiana Renee Secondary Sales Contract Administrator: Maria Dolores Ontiveros APRN. Rad Dose: NA [...] cirrhosis with ascites and hepatic hydrothorax. TECHNIQUE: [employer] Manager: Fabiana Renee Secondary Sales Contract Administrator: Maria Dolores Ontiveros APRN. Rad Dose: NA [...] 07/26/2025 8:51 AM us Marianna Dixon Gordon ADRI IMG US PROCEDURES Final Resu [...] by ascites and intermittent hepatic hydrothorax. TECHNIQUE: [employer] Manager: Maria Dolores Ontiveros APRN Secondary Sales Contract Administrator: None. Rad Dose: NA Medications: Continuous physiologic [...] complicated by ascites and intermittenthepatic hydrothorax. TECHNIQUE: [employer] Manager: Maria Dolores Ontiveros APRN Secondary Sales Contract Administrator: None. Rad Dose: NA Medications: Continuous physiologic [...] fluid. [facility]. A total of 1.5 liters [...] MD on 07/26/2025 8:50 AM us Marianna Dixon Gordon APRN IMG US PROCEDURES Final Resu lt * Body fluid, cytospin, pathologist interpretation (07/25/2025 11:52 AM EDT) Specimen Type Body Fluid LAB HEMATOLOGY METHOD 07/26/2025 9:43 AM EDT [facility] Specimen Source, Body Fluid Peritoneal Fluid LAB HEMATOLOGY METHOD 07/26/2025 9:43 AM EDT [facility] Clinical Diagnosis, Body Fluid Ascites LAB HEMATOLOGY METHOD 07/26/2025 9:43 AM EDT [facility] Interpretation , Body Fluid No evidence of malignancy. Predominantly chronic inflammatory cells and reactive mesothelial cells. Light blood. 07/26/2025 9:43 AM EDT [facility] Pathologist Signature, Body Fluid 07/26/2025 9:43 AM EDT [facility] Comment:Reviewed by: Onur Roque MD LAB CP ASR DISCLAIMER No 07/26/2025 9:43 AM EDT [facility] Body Fluid Peritoneal fluid / Unknown Non-blood Collection / Unknown 07/25/2025 11:52 AM EDT 07/25/2025 2:26 PM EDT us Marianna N Cheeks OR MANAGER LAB BODY FLUIDS AND STOOLS O RDERABLES Final Result Performing Organization Address [facility] Co de Phone Number [facility] [address] [place] [address] * Protein - Ascites (07/25/2025 11:52 AM EDT) Total Protein, Fluid 0.9 g/dL 07/25/2025 5:00 PM EDT [facility] Ascites Peritoneal cavity structure / Unknown 07/25/2025 11:52 AM EDT 07/25/2025 2:26 PM EDT Narrative [facility] - 07/25/2025 5:00 PM EDT This test was developed and its performance characteristics determined by [facility]. The U.S. Food and Drug Administration has not approved or cleared this test. However, FDA clearance or approval is not currently required for clinical use. The results are not intended to be used as the sole means for clinical diagnosis or patient management decisions. Marianna N Cheeks OR MANAGER LAB BODY FLUIDS AND STOOLS O RDERABLES Final Result Performing Organization Address [facility] Co de Phone Number [facility] [address] [place] [address] * (ABNORMAL) Body Fluid Cell Count With Diff - Ascites (07/25/2025 11:52 AM EDT) Color, Body fluid [place] LAB HEMATOLOGY METHOD 07/25/2025 4:56 PM EDT [facility] Appearance, Body fluid Cloudy(A) LAB HEMATOLOGY METHOD 07/25/2025 4:56 PM EDT [facility] Volume, Body fluid 30.0 cc LAB HEMATOLOGY METHOD 07/25/2025 4:56 PM EDT [facility] Fluid Container Specimen received in miscellaneous container LAB HEMATOLOGY METHOD 07/25/2025 4:56 PM EDT [facility] Red Blood Cell Count, Body fluid 4,000 uL LAB HEMATOLOGY METHOD 07/25/2025 4:56 PM EDT [facility] Total Nucleated Cell Count, Body fluid 158 uL LAB HEMATOLOGY METHOD 07/25/2025 4:56 PM EDT [facility] Neutrophils %, Body fluid 11 % LAB HEMATOLOGY METHOD 07/25/2025 4:56 PM EDT [facility] Lymphocytes %, Body fluid 54 % LAB HEMATOLOGY METHOD 07/25/2025 4:56 PM EDT [facility] Monocytes/Macr ophages %, Body fluid 27 % LAB HEMATOLOGY METHOD 07/25/2025 4:56 PM EDT [facility] Eosinophils %, Body fluid 0 % LAB HEMATOLOGY METHOD 07/25/2025 4:56 PM EDT [facility] Lining/Mesothe lial Cells %, Body fluid 8 % LAB HEMATOLOGY METHOD 07/25/2025 4:56 PM EDT [facility] Neutrophils Absolute (PMN), Body fluid 17 uL LAB HEMATOLOGY METHOD 07/25/2025 4:56 PM EDT [facility] Lymphocytes Absolute, Body fluid 85 uL LAB HEMATOLOGY METHOD 07/25/2025 4:56 PM EDT [facility] Monocytes/Macr ophages Absolute, Body fluid 43 uL LAB HEMATOLOGY METHOD 07/25/2025 4:56 PM EDT [facility] Eosinophils Absolute, Body fluid 0 uL LAB HEMATOLOGY METHOD 07/25/2025 4:56 PM EDT [facility] Basophils Absolute, Body fluid 0 uL LAB HEMATOLOGY METHOD 07/25/2025 4:56 PM EDT [facility] Lining/Mesothe lial Cells Absolute, Body fluid 13 uL LAB HEMATOLOGY METHOD 07/25/2025 4:56 PM EDT [facility] Basophils %, Body fluid 0 % LAB HEMATOLOGY METHOD 07/25/2025 4:56 PM EDT [facility] Body Fluid Peritoneal fluid / Unknown Non-blood Collection / Unknown 07/25/2025 11:52 AM EDT 07/25/2025 2:26 PM EDT us Marianna Gordon APRN LAB BODY FLUIDS AND STOOLS ORDERABLES NO SPECIMEN TYPE/SOURCE Final Result [facility] [address] [place] [address] documented in this encounter Visit Diagnoses Diagnosis [...] documented as of this encounter Care Teams Computer Tech Relationship Specialty Start Date End Date Alvarez Zimmer MD [address] [place] [address] PCP - General Family Medicine 12/07/24 09/02/25 Lea Fernando [address] [place] [address] Saas Architect Endocrinology 08/29/24 Rachel Ray, OR MANAGER [address] [facility] [address] [place] [phone] Nurse Practitioner Gastroenterology 09/24/24 Tamera Isabel LPN VALUE-BASED TRANSFORMATION PROGRAM Licensed Practical Nurse 05/29/25 Monique Tapia LPN [employer] [address] TCM Nurse 07/10/25 08/09/25 documented as of this encounter
--- OUTSIDE RECORDS SUMMARY | 2025-07-25 13:20 | XMS_ITS | Encounter Summary ---
Author Organization [facility] Address [address] [place] [address] Care Team Providers Care Swedger Name Role Phone Lea Fernando Unavailable [phone] Rachel Ray GREEN ENERGY MARKETING ANALYST Unavailable [phone] Alvarez Zimmer MD Primary Care Provider Tamera Isabel FOREST AIDE Unavailable Unavailabl Monique Garay FOREST AIDE Unavailable Unavailable Encounter Details Date Type Department Care Team (Latest Contact Info) Description 07/25/2025 1:20 PM EDT - 07/25/2025 11:59 PM EDT Hospital Encounter [facility] Radiology [address] [place] [address] Discharge Disposition: Home or Self Care Social [...] week 01/10/2025 How often do you attend [facility] or amish services? Patient unable to answer 01/10/2025 Do you belong to any clubs o r organizations such as scientology groups, unions, [employer] or athletic groups, or school groups? Patient [...] you attend chur ch or amish services? Never 05/29/2025 Do you [...] more drinks on one occasion? Never 06/25/2025 [facility] - Occupational Stress Questionnaire Answer [...] living in a half-way (including now)? No 06/26/2025 CAGE ASSESSMENT Answer [...] drink first t kennedy in the morning (EYE-ORGANISATION AND METHODS ANALYST) to steady your nerves or to get rid of a hangover? 0 06/25/2025 CAGE Questionnaire Score 0 025 Utilities Answer Date Recorded In the past 12 months has th e [employer], gas, oil, or water [employer] threatened to shut off services in your [...] 1 03/01/2025 ergocalciferol (Vitamin D-2) 1.25 MG (79098 UT) capsuleIndication s:Vitamin D deficiency Take 1 [...] nausea or vomiting. 60 tablet 2 07/09/2025 Abaloparatide (Tymlos) 3120 MCG/1.56ML solution pen-injector [...] Description 09/17/2025 9:45 AM EDT Clinical Support [facility] [place] [address] [place] [address] 09/17/2025 10:30 AM EDT Social Work [facility] [place] [address] [place] [address] Lea Reilly, [place] [address] 09/17/2025 11:20 AM EDT Office Visit [facility] [place] [address] [place] [address] Octavia Herrera, PA [address] [place] [address] 09/19/2025 10:30 AM EDT Appointment [facility] Interventional Radiology [address] [place] [address] 09/19/2025 11:30 AM EDT Appointment [facility] Inter[facility] Radiology [address] [place] [address] 09/26/2025 7:30 AM EST Appointment [facility] Inter[facility] Radiology [address] [place] [address] 09/26/2025 8:30 AM EST Appointment [facility] Inter[facility]iology [address] [place] [address] 10/01/2025 9:00 AM EST Office Visit [address] [place] [address] Lillie Pritchard MD [address] [place] [address] 10/03/2025 12:30 PM EST Appointment [facility] Inter[facility]iology [address] [place] [address] 10/03/2025 1:30 PM EST Appointment [facility] Inter[facility] Radiology [address] [place] [address] 12/20/2025 11:00 AM EST Office Visit [facility] Endocrinology [address] [place] [address] Miranda Hobson, GREEN ENERGY MARKETING ANALYST [address] [place] [address] documented as of this encounter Procedures Procedure Name Priority Date/Time Associated Diagnosis Comments XR CHEST 1 VIEW Timed 07/25/2025 1:46 PM EDT documented in this encounter Results * XR Chest 1 View (07/25/2025 1:46 [...] signing this report, I, the attending physician, attalexat I have personally reviewed the images/data for the aboveexamination(s) and agree with the final edited report. Drafted by Donte Mckenna MD on 07/25/2025 2:09 PM Final report signed by Darryn Santana MD on 07/25/2025 2:18 PM us Wily Faith MD IMG XR PROCEDURES Final Resul t documented in this encounter Visit Diagnoses Not [...] documented as of this encounter Care Teams Swedger Relationship Specialty Start Date End Date Alvarez Zimmer MD [address] [place] [address] PCP - General Family Medicine 12/07/24 09/02/25 Lea Fernando [address] [facility] [address] [place] [address] Sales Operations Analyst Endocrinology 08/29/24 Rachel Ray, GREEN ENERGY MARKETING ANALYST [address] [place] [address] Nurse Practitioner Gastroenterology 09/24/24 Tamera Isabel LPN VALUE-BASED TRANSFORMATION PROGRAM Licensed Practical Nurse 05/29/25 Monique Tapia LPN VALUE-BASED [place] [address] TCM Nurse 07/10/25 08/09/25 documented as of this encounter
--- OUTSIDE RECORDS SUMMARY | 2025-08-01 08:36 | XMS_ITS | Encounter Summary ---
Author Organization [facility] Address [address] [place] [address] Care Team Providers Care Signals Intelligence Analysis Manager Name Role Phone Lea Fernando Unavailable [phone] Rachel Ray APRN Unavailable [phone] Alvarez Zimmer MD Primary Care Provider [phone] Tamera Isabel VOCATIONAL CHILDCARE TEACHER Unavailable Unavailabl Monique Garay VOCATIONAL CHILDCARE TEACHER Unavailable Unavailable Reason for Referral * Clinic-Administered Medication (Routine) - Closed Specialty Diagnoses / Procedures Referred By Eder t Referred To Contact Diagnoses Other ascites Procedures RI ABDOM PARACENTESIS DX/THER W IMAGING GUIDANCE Fabiana Renee APRN, DNP [address] [place] [address] Phone: tel: fax: [facility] [address] [place] [address] Phone: tel: fax: Referral ID Status Reason Start Date Expiration Date Visits Re quested Visits Authorized [id number] Closed 08/01/2025 01/31/2027 1 1 * Imaging (Routine) - Closed Specialty Diagnoses / Procedures Referred By Contac t Referred To Contact Radiology Diagnoses Other ascites Procedures US Guided Abdominal Paracentesis Marianna Gordon APRN [address] [place] [address] Phone: tel: fax: Referral ID Status Reason Start Date Expiration Date Visits Re quested Visits Authorized [id number] Closed 07/25/2025 01/24/2027 1 1 Reason for Visit * Imaging (Routine) - Closed Specialty Diagnoses / Procedures Referred By Eder zhu Referred To Contact Radiology Diagnoses Other ascites Procedures US Guided Abdominal Paracentesis Marianna Gordon APRN [address] [place] [address] Phone: tel: fax: Referral ID Status Reason Start Date Expiration Date Visits Re quested Visits Authorized [id number] Closed 07/25/2025 01/24/2027 1 1 Encounter Details Date Type Department Care Team (Late st Contact Info) Description 08/01/2025 8:36 AM EDT - 08/01/2025 12:47 PM EDT Hospital Encounter [facility] Interventional Radiology [address] [place] [address] Pretty Enriquez RN CH-VASCULAR & INTERVENTIONAL RADIOLOGY [...] you attend [facility] or restorationism services? Patient unable to [...] drinks on one occasion? Never 06/25/2025 [facility] - Occupational Stress Questionnaire Answer Date Recorded [...] drink first t kennedy in the morning (EYE-OPERATIONS LIAISON) to steady your nerves or to get rid of a hangover? 0 06/25/2025 CAGE Questionnaire Score 0 025 Utilities Answer Date Recorded In the past 12 months has th e numberFire, gas, oil, or water company threatened to [...] MCG capsuleIndication s:Chronic kidney disease, stage 3b (CMS/[facility]ERLY [facility]) Take 1 capsule by mouth daily. 30 [...] 1 03/01/2025 ergocalciferol (Vitamin D-2) 1.25 MG (91378 UT) capsuleIndication s:Vitamin D deficiency Take 1 [...] lispro (Admelog, HumaLOG) 100 UNIT/ML injection pen 07/26/2025 insulin lispro (Admelog, HumaLOG) 100 UNIT/ML injection [...] from the original note were not included. [id number] Discharge Instructions for Thoracentesis Thoracentesis is a [...] blood. Last Reviewed Date: 2025 00:00:00 ?? 5081-5642 [employer] All rights reserved. This information is not intended as a substitute for professional medical care. Always follow your healthcare professional's instructions. * [facility] - Pretty Enriquez RN - 08/01/2025 11:39 AM EDT Images from the original note were not included. 17757 Paracentesis Your healthcare provider recommends that you [...] are taking. This includes all prescription medicines, qirr-uyw-azndtks medicines, street drugs, herbs, vitamins, and other [...] fainting Last Reviewed Date: 2022 00:00:00 ?? 6981-7340 [employer] All rights reserved. This information is not intended as a substitute for professional medical care. Always follow your healthcare professional's instructions. * Post-Procedure Note - Fabiana Renee APRN, DNP - 08/01/2025 10:00 AM EDT Vascular and Interventional Radiology Brief Postprocedure Note Performed by: Fabiana Renee APRN/ Zaheer Ortiz MD Casino Accountant: Marianna Gordon APRN Pre-operative Diagnosis: right pleural [...] - 07/03/2025 10:34 AM EDT 07/03/25 Patient: Gbai Zimmer Date of : 1960/64 y.o. Date [...] - Any questions with scheduling please call [phone] - Please place orders for desired fluid studies to be sent for analysis prior to procedure Thank you for allowing us to participate in the care of this patient. Micheal Glasgow APRN, DNP Interventional Radiology [phone] [1] Past Medical History: Diagnosis Date ADHD (attention deficit hyperactivity disorder) Allergic Anxiety disorder, unspecified Anxiety Bleeding gums Blood in urine Cataract Chronic kidney disease Cirrhosis (CMS/HCC) Colon cancer screening 09/20/2019 Added automatically from request for surgery [id number] Coronary artery disease Depression 1995 Diabetes mellitus [...] 1979 BLADDER SURGERY N/A Bladder surgery from [facility] [employer] BREAST BIOPSY 2011 BREAST SURGERY 2010 BUNIONECTOMY Right CATARACT EXTRACTION Bilateral 2016 CHOLECYSTECTOMY 1979 ESOPHAGOGASTRODUODENOSCOPY HYSTERECTOMY N/A Hysterectomy from [employer] KNEE SURGERY Bilateral ORAL SURGERY N/A Oral surgery from [employer] OTHER SURGICAL HISTORY 2015 ROOT CANAL WISDOM TOOTH EXTRACTION [3] Social History Tobacco Use Smoking status: Never Passive exposure: Never Smokeless tobacco: Never Vaping Use Vaping status: Never Used Substance Use Topics Alcohol use: Not Currently Drug use: Never [4] No Known Allergies [5] Current Facility-Administered Medications: albumin human 25 % infusion 12.5 g, 12.5 g, Intravenous, q15 min PRN, Marianna Gordon N, MILITARY PERSONNEL SPECIALIST albumin human 25 % infusion 87.5 [...] Description 09/17/2025 9:45 AM EDT Clinical Support [facility] [place] [address] [facility] [address] [place] [address] 09/17/2025 10:30 AM EDT Social Work [facility] [place] [address] [address] Lea Reilly, [place] [id number] 09/17/2025 11:20 AM EDT Office Visit [facility] [place] [address] [facility] [address] [place] [address] Octavia Herrera, MARIA GUADALUPE [address] [facility] [address] [place] [address] 09/19/2025 10:30 AM EDT Appointment [facility] Inter[facility] Radiology [address] [place] [address] 09/19/2025 11:30 AM EDT Appointment [facility] Inter[facility]iology [address] [place] [address] 09/26/2025 7:30 AM EST Appointment [facility]iology [address] [place] [address] 09/26/2025 8:30 AM EST Appointment [facility] Inter[facility] Radiology [address] [place] [address] 10/01/2025 9:00 AM EST Office Visit [facility] [address] [facility], [address] [place] [address] Lillie Pritchard MD [address] [place] [address] 10/03/2025 12:30 PM EST Appointment [facility] Inter[facility] Radiology [address] [place] [address] 10/03/2025 1:30 PM EST Appointment [facility] Inter[facility] Radiology [address] [place] [address] 12/20/2025 11:00 AM EST Office Visit [facility] Endocrinology [address] [place] [address] Miranda Hobson, MILITARY PERSONNEL SPECIALIST [address] [facility] [address] [place] [address] documented as of this encounter Procedures Procedure [...] on 08/01/2025 2:12 PM us Fabiana Renee MILITARY PERSONNEL SPECIALIST, DNP IMG XR PROCEDURES Tari l Result [...] to IR, undergoing outpatient paracentesis/thoracentesis weekly TECHNIQUE: Chipping Machine Operator: Noé BALDERAS, Marianna Gordon APRN Secondary Medical Case Worker: None. Rad Dose: NA Medications: Continuous physiologic [...] known to IR, undergoing outpatientparacentesis/thoracentesis weekly TECHNIQUE: Chipping Machine Operator: Noé BALDERAS, Marianna Gordon APRN Secondary Medical Case Worker: None. Rad Dose: NA Medications: Continuous physiologic [...] on 08/01/2025 5:04 PM us Marianna Gordon MILITARY PERSONNEL SPECIALIST IMG US PROCEDURES Final Resu lt * Body fluid, cytospin, pathologist interpretation (08/01/2025 10:44 AM EDT) Specimen Type Body Fluid LAB HEMATOLOGY METHOD 08/02/2025 12:12 PM EDT [facility] Specimen Source, Body Fluid Peritoneal Fluid LAB HEMATOLOGY METHOD 08/02/2025 12:12 PM EDT [facility] Clinical Diagnosis, Body Fluid Ascites LAB HEMATOLOGY METHOD 08/02/2025 12:12 PM EDT [facility] Interpretation , Body Fluid No evidence of malignancy Predominantly chronic inflammatory cells Lymphocytosis Light blood A resident was involved in the service. I attest I examined the relevant preparations for the specimens and confirmed the diagnosis or interpretation. 08/02/2025 12:12 PM EDT [facility] Pathologist Signature, Body Fluid 08/02/2025 12:12 PM EDT [facility] Comment:Reviewed by: Kadie dobbs MD LAB CP ASR DISCLAIMER Yes 08/02/2025 12:12 PM EDT [facility] Body Fluid Peritoneal fluid / Unknown Non-blood Collection / Unknown 08/01/2025 10:44 AM EDT 08/01/2025 12:48 PM EDT us Fabiana Renee APRN, DNP LAB BODY FLUIDS AND ST OOLS ORDERABLES Final Result [facility] [address] [place] [address] * Protein - Ascites (08/01/2025 10:44 AM EDT) Total Protein, Fluid 1 g/dL 08/01/2025 3:45 PM EDT [facility] Ascites Peritoneal cavity structure / Unknown 08/01/2025 10:44 AM EDT 08/01/2025 12:48 PM EDT Narrative [facility] - 08/01/2025 3:45 PM EDT This test was developed and its performance characteristics determined by [facility]. The U.S. Food and Drug Administration has not approved or cleared this test. However, FDA clearance or approval is not currently required for clinical use. The results are not intended to be used as the sole means for clinical diagnosis or patient management decisions. Fabiana Renee MILITARY PERSONNEL SPECIALIST, DNP LAB BODY FLUIDS AND ST OOLS ORDERABLES Final Result [facility] [address] [place] [address] * (ABNORMAL) Body Fluid Cell Count With Diff - Ascites (08/01/2025 10:44 AM EDT) Color, Body fluid [place] LAB HEMATOLOGY METHOD 08/01/2025 7:44 PM EDT [facility] Appearance, Body fluid Cloudy(A) LAB HEMATOLOGY METHOD 08/01/2025 7:44 PM EDT [facility] Volume, Body fluid 28.0 cc LAB HEMATOLOGY METHOD 08/01/2025 7:44 PM EDT [facility] Fluid Container Specimen received in miscellaneous container LAB HEMATOLOGY METHOD 08/01/2025 7:44 PM EDT [facility] Red Blood Cell Count, Body fluid 5,000 uL LAB HEMATOLOGY METHOD 08/01/2025 7:44 PM EDT [facility] Total Nucleated Cell Count, Body fluid 155 uL LAB HEMATOLOGY METHOD 08/01/2025 7:44 PM EDT [facility] Neutrophils %, Body fluid 2 % LAB HEMATOLOGY METHOD 08/01/2025 7:44 PM EDT [facility] Lymphocytes %, Body fluid 79 % LAB HEMATOLOGY METHOD 08/01/2025 7:44 PM EDT [facility] Monocytes/Macr ophages %, Body fluid 17 % LAB HEMATOLOGY METHOD 08/01/2025 7:44 PM EDT [facility] Eosinophils %, Body fluid 0 % LAB HEMATOLOGY METHOD 08/01/2025 7:44 PM EDT [facility] Lining/Mesothe lial Cells %, Body fluid 2 % LAB HEMATOLOGY METHOD 08/01/2025 7:44 PM EDT [facility] Neutrophils Absolute (PMN), Body fluid 3 uL LAB HEMATOLOGY METHOD 08/01/2025 7:44 PM EDT [facility] Lymphocytes Absolute, Body fluid 122 uL LAB HEMATOLOGY METHOD 08/01/2025 7:44 PM EDT [facility] Monocytes/Macr ophages Absolute, Body fluid 26 uL LAB HEMATOLOGY METHOD 08/01/2025 7:44 PM EDT [facility] Eosinophils Absolute, Body fluid 0 uL LAB HEMATOLOGY METHOD 08/01/2025 7:44 PM EDT [facility] Basophils Absolute, Body fluid 0 uL LAB HEMATOLOGY METHOD 08/01/2025 7:44 PM EDT [facility] Lining/Mesothe lial Cells Absolute, Body fluid 3 uL LAB HEMATOLOGY METHOD 08/01/2025 7:44 PM EDT [facility] Basophils %, Body fluid 0 % LAB HEMATOLOGY METHOD 08/01/2025 7:44 PM EDT [facility] Body Fluid Peritoneal fluid / Unknown Non-blood Collection / Unknown 08/01/2025 10:44 AM EDT 08/01/2025 12:48 PM EDT Fabiana Renee MILITARY PERSONNEL SPECIALIST, DNP LAB BODY FLUID S AND STOOLS ORDERABLES NO SPECIMEN TYPE/SOURCE Final Result [facility] [address] [place] [address] documented in this encounter Visit Diagnoses Diagnosis [...] documented as of this encounter Care Teams Signals Intelligence Analysis Manager Relationship Specialty Start Date End Date Alvarez Zimmer MD [address] [place] [address] PCP - General Family Medicine 12/07/24 09/02/25 Lea Fernando [address] [facility] [address] [place] [address] Inside Contractor Sales Endocrinology 08/29/24 Rachel Ray APRN [address] [place] [address] Nurse Practitioner Gastroenterology 09/24/24 Tamera Isabel LPN VALUE-BASED TRANSFORMATION PROGRAM Licensed Practical Nurse 05/29/25 Monique Tapia LPN [employer] [address] TCM Nurse 07/10/25 08/09/25 documented as of this encounter
--- OUTSIDE RECORDS SUMMARY | 2025-08-01 12:48 | XMS_ITS | Encounter Summary ---
Author Organization [facility] Address [address] [place] [address] Care Team Providers Care Chair And Couch Maker Name Role Phone Lea Fernando Unavailable [phone] Rachel Ray STAFFING RECRUITER Unavailable [phone] Alvarez Zimmer MD Primary Care Provider [phone] Tamera Isabel ADVERTISING COPYWRITER Unavailable Unavailabl Monique Garay ADVERTISING COPYWRITER Unavailable Unavailable Encounter Details Date Type Department Care Team (Latest Contact Info) Description 08/01/2025 12:48 PM EDT - 08/01/2025 11:59 PM EDT Hospital Encounter [facility] [address] [place] [address] Discharge Disposition: Home or Self Care Social [...] week 01/10/2025 How often do you attend [facility] or hinduism services? Patient unable to answer 01/10/2025 Do you belong to any clubs o r organizations such as christian groups, unions, [place] or athletic groups, or school groups? Patient [...] you attend chur ch or hinduism services? Never 05/29/2025 Do you belong to any clubs o r organizations such as christian groups, unions, fraternal or athletic groups, or [...] one occasion? Never 06/25/2025 [facility] - Occupational Stress Questionnaire Answer Date [...] drink first t kennedy in the morning (EYE-HIGH SPEED PRINTER OPERATOR) to steady your nerves or to get rid of a hangover? 0 06/25/2025 CAGE Questionnaire Score 0 025 Utilities Answer Date Recorded In the past 12 months has th e [employer], gas, oil, or water [employer] threatened to shut off services in your [...] 1 03/01/2025 ergocalciferol (Vitamin D-2) 1.25 MG (16663 UT) capsuleIndication s:Vitamin D deficiency Take 1 [...] Description 09/17/2025 9:45 AM EDT Clinical Support [facility] [address] [place] [phone] 09/17/2025 10:30 AM EDT Social Work [facility] [address] [place] [address] Lea Reilly, [place], [place] [id number] 09/17/2025 11:20 AM EDT Office Visit [facility] [address] [place] [address] Octavia Herrera, PA [address] [facility] [address] [place] [address] 09/19/2025 10:30 AM EDT Appointment [facility] [address] [place] [id number] 09/19/2025 11:30 AM EDT Appointment [facility] [address] [place] [address] 09/26/2025 7:30 AM EST Appointment [facility] [address] [place] [address] 09/26/2025 8:30 AM EST Appointment [facility] [address] [place] [address] 10/01/2025 9:00 AM EST Office Visit [facility] [address] [place] [address], [address] [place] [address] Lillie Pritchard MD [address] [place] [address] 10/03/2025 12:30 PM EST Appointment [facility] [address] [place] [address] 10/03/2025 1:30 PM EST Appointment [facility] [address] [place] [address] 12/20/2025 11:00 AM EST Office Visit [facility] [address] [place] [address] Miranda Hobson, STAFFING RECRUITER [address] [place] [address] documented as of this encounter [...] on 08/01/2025 2:12 PM us Fabiana Renee APRN, DNP IMG XR PROCEDURES [...] documented as of this encounter Care Teams Chair And Couch Maker Relationship Specialty Start Date End Date Alvarez Zimmer MD [address] [place] [phone] PCP - General Family Medicine 12/07/24 09/02/25 Lea Fernando [address] [place] [address] Personnel Clerk Endocrinology 08/29/24 Rachel Ray APRN [address] [place] [address] Nurse Practitioner Gastroenterology 09/24/24 Tamera Isabel LPN VALUE-BASED TRANSFORMATION PROGRAM Licensed Practical Nurse 05/29/25 Monique Tapia LPN [employer] [address] TCM Nurse 07/10/25 08/09/25 documented as of this encounter
--- OUTSIDE RECORDS SUMMARY | 2025-08-08 08:51 | XMS_ITS | Encounter Summary ---
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 Name Role Phone Lea Fernando Unavailable [phone] Rachel Ray CHILD DAY CARE TEACHER Unavailable [phone] Alvarez Zimmer MD Primary Care Provider [phone] Tamera Isabel ARCH CUSHION PRESS OPERATOR Unavailable Unavailabl Monique Garay ARCH CUSHION PRESS OPERATOR Unavailable Unavailable Reason for Referral * Clinic-Administered Medication (Routine) - Closed Specialty Diagnoses / Procedures Referred By Contac t Referred To Contact Diagnoses Other ascites Procedures MT ABDOM PARACENTESIS DX/THER W IMAGING GUIDANCE Shaniqua Mccurdy APRN [address] [place] [address] Phone: tel: fax: [facility] [address] [place] [address] Phone: tel: fax: Referral ID Status Reason Start Date Expiration Date Visits Re quested Visits Authorized [id number] Closed 08/08/2025 02/07/2027 1 1 * Imaging (Routine) - Closed Specialty Diagnoses / Procedures Referred By Contac t Referred To Contact Radiology Diagnoses Other ascites Procedures US Guided Thoracentesis Marianna Gordon APRN [address] [place] [address] Phone: tel: fax: Referral ID Status Reason Start Date Expiration Date Visits Re quested Visits Authorized [id number] Closed 07/25/2025 01/24/2027 1 1 * Imaging (Routine) - Closed Specialty Diagnoses / Procedures Referred By Eder zhu Referred To Contact Radiology Diagnoses Other ascites Procedures US Guided Abdominal Paracentesis Marianna Gordon APRN [address] [place] [address] Phone: tel: fax: Referral ID Status Reason Start Date Expiration Date Visits Re quested Visits Authorized [id number] Closed 07/25/2025 01/24/2027 1 1 Reason for Visit * Imaging (Routine) - Closed Specialty Diagnoses / Procedures Referred By Eder zhu Referred To Contact Radiology Diagnoses Other ascites Procedures US Guided Abdominal Paracentesis Marianna Gordon APRN [address] [place] [address] Phone: tel: fax: Referral ID Status Reason Start Date Expiration Date Visits Re quested Visits Authorized [id number] Closed 07/25/2025 01/24/2027 1 1 Encounter Details Date Type Department Care Team (Late st Contact Info) Description 08/08/2025 8:51 AM EDT - 08/08/2025 2:26 PM EDT Hospital Encounter [facility] Interventional Radiology [address] [place] [address] Mariam Thomas, RN CH-VASCULAR & INTERVENTIONAL RADIOLOGY [...] often do you attend [facility] or [facility] services? Patient unable to answer [...] more drinks on one occasion? Never [facility] - Occupational Stress Questionnaire Answer Date [...] any time in the past 12 m [facility], were you homeless or [...] drink first t kennedy in the morning (EYE-GUEST EXPERIENCE REPRESENTATIVE) to steady your nerves or to get rid of a hangover? 0 06/25/2025 CAGE Questionnaire Score 0 025 Utilities Answer Date Recorded In the past 12 months has th youbeQ - [employer], gas, oil, or water company threatened to [...] call: [facility] Inter[facility]iology Clinic at [phone] Tuesday - Tuesday 8:00 AM to 4:30 PM After hours, weekends, and holidays please call [phone] and ask for the Interventional Radiology provider/Resident on-call Intervention Radiology Appointments: If you need to reschedule a procedure, please call our Schedulers at [phone], option 4. If you need to schedule or reschedule a clinic appointment, please call [phone]. [facility] Vascular and Interventional Radiology Clinic [facility] [address] [facility], First [address] [place] [address] documented in this encounter Medications at Time [...] 1 03/01/2025 ergocalciferol (Vitamin D-2) 1.25 MG (68864 UT) capsuleIndication s:Vitamin D deficiency Take 1 [...] lispro (Admelog, HumaLOG) 100 UNIT/ML injection pen 08/04/2025 insulin lispro (Admelog, HumaLOG) 100 UNIT/ML injection [...] EDT Pt received from intraprocedure RN to Hugo #25; handoff report obtained; Pt placed on [...] is in stable condition. * H&P - Shaniqua Mccurdy APRN - 08/08/2025 11:15 AM EDT 08/08/25 [...] is no recent study available for direct azfr-ho-vcmi comparison. Assessment & Plan: Decompensated cirrhosis, MASH [...] the care of this patient. Shaniqua Mccurdy, CHILD DAY CARE TEACHER Interventional Radiology [phone] [1] Past Medical History: Diagnosis Date ADHD (attention deficit hyperactivity disorder) Allergic Anxiety disorder, unspecified Anxiety Bleeding gums Blood in urine Cataract Chronic kidney disease Cirrhosis (CMS/HCC) Colon cancer screening 09/20/2019 Added automatically from request for surgery [id number] Coronary artery disease Depression 1995 Diabetes mellitus [...] 1979 BLADDER SURGERY N/A Bladder surgery [facility] BREAST BIOPSY 2011 BREAST SURGERY 2010 BUNIONECTOMY Right CATARACT EXTRACTION Bilateral 2016 CHOLECYSTECTOMY 1979 ESOPHAGOGASTRODUODENOSCOPY HYSTERECTOMY N/A Hysterectomy from [facility] KNEE SURGERY Bilateral ORAL SURGERY N/A Oral surgery from [facility] OTHER SURGICAL HISTORY 2014 ROOT CANAL WISDOM [...] Rfl: 1 ergocalciferol (Vitamin D-2) 1.25 MG (15181 UT) capsule, Take 1 capsule by mouth [...] from the original note were not included. 48026 Discharge Instructions for Thoracentesis Thoracentesis is a [...] blood. Last Reviewed Date: 2025 00:00:00 ?? 7615-2136 [employer]. All rights reserved. This information is not intended as a substitute for professional medical care. Always follow your healthcare professional's instructions. * John Vargas - Mariam Thomas RN - 08/08/2025 10:24 AM EDT Images from the original note were not included. 25586 Discharge Instructions for Paracentesis Paracentesis is a [...] fainting. Last Reviewed Date: 2025 00:00:00 ?? 9110-2010 [employer]. All rights reserved. This information is not intended as a substitute for professional medical care. Always follow your healthcare professional's instructions. documented in this encounter Plan of Treatment Upcoming Encounters Date Type Department Care Team (Late st Contact Info) Description 09/17/2025 9:45 AM EDT Clinical Support [facility] [address] [place] [address] 09/17/2025 10:[address] [facility] [address] [place] [address] Lea Reilly, [place] [address] 09/17/2025 11:20 AM EDT Office Visit [facility] [address] [place] [address] Octavia Herrera, MARIA GUADALUPE [address] [place] [address] 09/19/2025 10:30 AM EDT Appointment [facility] Inter[facility] Radiology [address] [place] [address] 09/19/2025 11:30 AM EDT Appointment [facility] Inter[facility]iology [address] [place] [address] 09/26/2025 7:30 AM EST Appointment [facility] Inter[facility]iology [address] [place] [address] 09/26/2025 8:30 AM EST Appointment [facility] Inter[facility]iology [address] [place] [address] 10/01/2025 9:00 AM EST Office Visit [facility] [address] [facility], [address] [place] [address] Lillie Pritchard MD [address] [place] [address] 10/03/2025 12:30 PM EST Appointment [facility] Inter[facility]iology [address] [place] [address] 10/03/2025 1:30 PM EST Appointment [facility] Inter[facility] Radiology [address] [place] [address] 12/20/2025 11:00 AM EST Office Visit [facility]ology [address] [place] [address] Miranda Hobson, CHILD DAY CARE TEACHER [address] [facility] [address] [place] [address] documented as of this encounter Procedures Procedure [...] Darryn Santana MD on 08/08/2025 3:10 PM us Shaniqua Mccurdy CHILD DAY CARE TEACHER IMG XR PROCEDURES Final Resu lt * (ABNORMAL) POCT glucose meter (08/08/2025 1:42 PM EDT) POCT Glucose 294(H) 74 - 99 mg/dL 08/08/2025 1:44 PM EDT [facility] Comment:Accuracy of [...] 08/08/2025 1:44 PM EDT [facility] Pot Annealer ID Mariam Thomas 08/08/2025 1:44 PM EDT [facility] Device ID [id number] 08/08/2025 1:44 PM EDT [facility] Specimen Type POC Capillary 08/08/2025 1:44 PM EDT [facility] Blood Capillary blood specimen / Unknown 08/08/2025 1:42 PM EDT 08/08/2025 1:44 PM EDT us Mariam Thomas FIELD MARKETING COORDINATOR POINT OF CARE T EST DOCKED DEVICE UNSOLICITED RESULTS Final Result [facility] [address] [place] [address] * US Guided Thoracentesis (08/08/2025 12:19 PM [...] cirrhosis with ascites and hepatic hydrothorax. TECHNIQUE: Sales Service Representative: Shaniqua Mccurdy APRN Secondary Pot Annealer: None. Rad Dose: NA Medications: Continuous physiologic [...] decompensated cirrhosis with ascites and hepatichydrothorax. TECHNIQUE: Sales Service Representative: Shaniqua Mccurdy APRN Secondary Pot Annealer: None. Rad Dose: NA Medications: Continuous physiologic [...] MD on 08/08/2025 1:58 PM us Marianna Gordon CHILD DAY CARE TEACHER IMG US PROCEDURES Final Resu lt [...] cirrhosis with hepatic hydrothorax and ascites. TECHNIQUE: Sales Service Representative: Shaniqua Mccurdy APRN Secondary Pot Annealer: None. Rad Dose: NA Medications: Continuous physiologic [...] decompensated cirrhosiswith hepatic hydrothorax and ascites. TECHNIQUE: Sales Service Representative: Shaniqua Mccurdy APRN Secondary Pot Annealer: None. Rad Dose: NA Medications: Continuous physiologic [...] on 08/08/2025 1:52 PM us Marianna Gordon APRN IMG US PROCEDURES Final Resu lt * Body fluid, cytospin, pathologist interpretation (08/08/2025 11:32 AM EDT) Specimen Type Body Fluid LAB HEMATOLOGY METHOD 08/09/2025 5:55 PM EDT [facility] Specimen Source, Body Fluid Peritoneal Fluid LAB HEMATOLOGY METHOD 08/09/2025 5:55 PM EDT [facility] Clinical Diagnosis, Body Fluid Decompensated cirrhosis MASH, Ascites LAB HEMATOLOGY METHOD 08/09/2025 5:55 PM EDT [facility] Interpretation , Body Fluid No evidence of malignancy Chronic inflammatory cells Lymphocytosis Light blood A resident was involved in the service. I attest I examined the relevant preparations for the specimens and confirmed the diagnosis or interpretation. 08/09/2025 5:55 PM EDT [facility] Pathologist Signature, Body Fluid 08/09/2025 5:55 PM EDT [facility] Comment:Reviewed by: Kadie dobbs MD LAB CP ASR DISCLAIMER Yes 08/09/2025 5:55 PM EDT [facility] Body Fluid Peritoneal fluid / Unknown Non-blood Collection / Unknown 08/08/2025 11:32 AM EDT 08/08/2025 2:47 PM EDT us Shaniqua Mccurdy CHILD DAY CARE TEACHER LAB BODY FLUIDS AND STOOLS O RDERABLES Final Result [facility] [address] [place] [address] * Glucose - Ascites (08/08/2025 11:32 AM EDT) Glucose, Fluid 317 mg/dL 08/08/2025 3:30 PM EDT [facility] Peritoneal Fluid Peritoneal cavity structure / Unknown Non-blood Collection / Unknown 08/08/2025 11:32 AM EDT 08/08/2025 2:47 PM EDT Narrative [facility] - 08/08/2025 3:30 PM EDT [...] 3) Glucose < 50 mg/dL. Shaniqua Mccurdy CHILD DAY CARE TEACHER LAB BODY FLUIDS AND STOOLS O RDERABLES Final Result Performing Organization Address [facility] de Phone Number [facility] [address] [place] [address] * Protein - Ascites (08/08/2025 11:32 AM EDT) Total Protein, Fluid 0.9 g/dL 08/08/2025 3:30 PM EDT [facility] Peritoneal Fluid Peritoneal cavity structure / Unknown Non-blood Collection / Unknown 08/08/2025 11:32 AM EDT 08/08/2025 2:47 PM EDT Narrative [facility] - 08/08/2025 3:30 PM EDT This test was developed and its performance characteristics determined by [facility]. The U.S. Food and Drug Administration has not approved or cleared this test. However, FDA clearance or approval is not currently required for clinical use. The results are not intended to be used as the sole means for clinical diagnosis or patient management decisions. Shaniqua Rivera Calli CHILD DAY CARE TEACHER LAB BODY FLUIDS AND STOOLS O RDERABLES Final Result Performing Organization Address [facility] de Phone Number [facility] [address] [place] [address] * (ABNORMAL) Body Fluid Cell Count With Diff - Ascites (08/08/2025 11:32 AM EDT) Color, Body fluid Yellow LAB HEMATOLOGY METHOD 08/08/2025 4:39 PM EDT [facility] Appearance, Body fluid Cloudy(A) LAB HEMATOLOGY METHOD 08/08/2025 4:39 PM EDT [facility] Volume, Body fluid 8.0 cc LAB HEMATOLOGY METHOD 08/08/2025 4:39 PM EDT [facility] Fluid Container Tube 3 LAB HEMATOLOGY METHOD 08/08/2025 4:39 PM EDT [facility] Red Blood Cell Count, Body fluid 4,000 uL LAB HEMATOLOGY METHOD 08/08/2025 4:39 PM EDT [facility] Total Nucleated Cell Count, Body fluid 122 uL LAB HEMATOLOGY METHOD 08/08/2025 4:39 PM EDT [facility] Neutrophils %, Body fluid 2 % LAB HEMATOLOGY METHOD 08/08/2025 4:39 PM EDT [facility] Lymphocytes %, Body fluid 93 % LAB HEMATOLOGY METHOD 08/08/2025 4:39 PM EDT [facility] Monocytes/Macro phages %, Body fluid 5 % LAB HEMATOLOGY METHOD 08/08/2025 4:39 PM EDT [facility] Eosinophils %, Body fluid 0 % LAB HEMATOLOGY METHOD 08/08/2025 4:39 PM EDT [facility] Lining/Mesothel ial Cells %, Body fluid 0 % LAB HEMATOLOGY METHOD 08/08/2025 4:39 PM EDT [facility] Neutrophils Absolute (PMN), Body fluid 2 uL LAB HEMATOLOGY METHOD 08/08/2025 4:39 PM EDT [facility] Lymphocytes Absolute, Body fluid 113 uL LAB HEMATOLOGY METHOD 08/08/2025 4:39 PM EDT [facility] Monocytes/Macro phages Absolute, Body fluid 6 uL LAB HEMATOLOGY METHOD 08/08/2025 4:39 PM EDT [facility] Eosinophils Absolute, Body fluid 0 uL LAB HEMATOLOGY METHOD 08/08/2025 4:39 PM EDT [facility] Basophils Absolute, Body fluid 0 uL LAB HEMATOLOGY METHOD 08/08/2025 4:39 PM EDT [facility] Lining/Mesothel ial Cells Absolute, Body fluid 0 uL LAB HEMATOLOGY METHOD 08/08/2025 4:39 PM EDT [facility] Basophils %, Body fluid 0 % LAB HEMATOLOGY METHOD 08/08/2025 4:39 PM EDT [facility] Body Fluid Peritoneal fluid / Unknown Non-blood Collection / Unknown 08/08/2025 11:32 AM EDT 08/08/2025 2:47 PM EDT us Shaniqua Mccurdy APRN LAB BODY FLUIDS AND STOOLS ORDERABLES NO SPECIMEN TYPE/SOURCE Final Result [facility] [address] [place] [address] documented in this encounter Visit Diagnoses Diagnosis [...] solution solution As needed, Starting on Sarahi 08/08/25 at 1129, Until Sarahi 08/08/25 at 1129, Routine, Intraprocedure Given 08/08/2025 11:29 [...] documented as of this encounter Care Teams Forestry Farm Laborer Relationship Specialty Start Date End Date Alvarez Zimmer MD [address] [place] [address] PCP - General Family Medicine 12/07/24 09/02/25 Lea Fernando [address] [facility] [address] [place] [address] Title Curator Endocrinology 08/29/24 Rachel Ray APRN [address] [place] [phone] Nurse Practitioner Gastroenterology 09/24/24 Tamera Isabel LPN VALUE-BASED TRANSFORMATION PROGRAM Licensed Practical Nurse 05/29/25 Monique Tapia LPN [employer] [place] [address] TCM Nurse 07/10/25 08/09/25 documented as of this encounter
--- OUTSIDE RECORDS SUMMARY | 2025-08-08 14:27 | XMS_ITS | Encounter Summary ---
Author Organization [facility] Address [address] [place] [address] Care Team Providers Care Fishing Rod Assembler Name Role Phone Lea Fernando Unavailable [phone] Rachel Ray MID LEVEL CLINICIAN Unavailable [phone] Alvarez Zimmer MD Primary Care Provider [phone] Tamera Isabel CHINA DECORATOR Unavailable Unavailabl Monique Garay CHINA DECORATOR Unavailable Unavailable Encounter Details Date Type Department Care Team (Latest Contact Info) Description 08/08/2025 2:27 PM EDT - 08/08/2025 11:59 PM EDT Hospital Encounter [facility] [address] [place] [address] Discharge Disposition: Home or Self Care Social [...] you attend [facility] or sikh services? Patient unable to answer 01/10/2025 Do you belong to any clubs o r organizations such as judaism groups, unions, [employer] or athletic groups, or school groups? Patient [...] you attend chur ch or sikh services? Never 05/29/2025 Do you belong to any clubs o r organizations such as judaism groups, unions, fraternal or athletic groups, or [...] drinks on one occasion? Never 06/25/2025 [facility] - Occupational Stress Questionnaire Answer Date [...] living in a custodial (including now)? No 06/26/2025 CAGE ASSESSMENT Answer [...] drink first t kennedy in the morning (EYE-CANCER GENETICS ASSISTANT) to steady your nerves or to get rid of a hangover? 0 06/25/2025 CAGE Questionnaire Score 0 025 Utilities Answer Date Recorded In the past 12 months has th e [employer], gas, oil, or water [employer] threatened to shut off services in your [...] 1 03/01/2025 ergocalciferol (Vitamin D-2) 1.25 MG (99057 UT) capsuleIndication s:Vitamin D deficiency Take 1 [...] 09/17/2025 9:45 AM EDT Clinical Support [facility] [place] [address] [facility] [address] [place] [address] 09/17/2025 10:[address] [facility] [place] [address] [facility] [place] [address] Lea Reilly, [place] [address] 09/17/2025 11:20 AM EDT Office Visit [facility] [place] [address] [facility] [address] [place] [address] Octavia Herrera, MARIA GUADALUPE [address] [facility] [address] [place] [address] 09/19/2025 10:30 AM EDT Appointment [facility]iology [address] [place] [address] 09/19/2025 11:30 AM EDT Appointment [facility]iology [address] [place] [address] 09/26/2025 7:30 AM EST Appointment [facility]iology [address] [place] [address] 09/26/2025 8:30 AM EST Appointment [facility] Radiology [address] [place] [address] 10/01/2025 9:00 AM EST Office Visit [facility] [address] [facility], [address] [place] [address] Lillie Pritchard MD [address] [place] [address] 10/03/2025 12:30 PM EST Appointment [facility] Radiology [address] [place] [address] 10/03/2025 1:30 PM EST Appointment [facility] Radiology [address] [place] [address] 12/20/2025 11:00 AM EST [facility] [address] [place] [address] Miranda Hobson, MID LEVEL CLINICIAN [address] [facility] [address] [place] [address] documented as of this encounter Procedures Procedure [...] on 08/08/2025 3:10 PM us Shaniqua Mccurdy MID LEVEL CLINICIAN IMG XR PROCEDURES Final Resu lt documented [...] documented as of this encounter Care Teams Fishing Rod Assembler Relationship Specialty Start Date End Date Alvarez Zimmer MD [address] [place] [address] PCP - General Family Medicine 12/07/24 09/02/25 Lea Fernando [address] [place] [address] Stamp Pad Maker Endocrinology 08/29/24 Rachel Ray, ADRI [address] [place] [address] Nurse Practitioner Gastroenterology 09/24/24 Tamera Isabel LPN VALUE-BASED TRANSFORMATION PROGRAM Licensed Practical Nurse 05/29/25 Monique Tapia LPN VALUE-BASED [place] [address] TCM Nurse 07/10/25 08/09/25 documented as of this encounter
--- OUTSIDE RECORDS SUMMARY | 2025-08-15 08:47 | XMS_ITS | Encounter Summary ---
Author Organization [facility] Address [address] [place] [address] Care Team Providers Care [employer] Name Role Phone Lea Fernando Unavailable [phone] Rachel Ray APRN Unavailable [phone] Alvarez Zimmer MD Primary Care Provider [phone] Tamera Isabel LPN Unavailable Unavailabl e Reason for Referral * Clinic-Administered Medication (Routine) - Closed Specialty Diagnoses / Procedures Referred By Eder zhu Referred To Contact Diagnoses Other ascites Procedures HI ABDOM PARACENTESIS DX/THER W IMAGING GUIDANCE Micheal Glasgow APRN, DNP [address] [place] [address] Phone: tel: fax: [facility] [address] [place] [address] Phone: tel: fax: Referral ID Status Reason Start Date Expiration Date Visits Re quested Visits Authorized [id number] Closed 2025 02/14/2027 1 1 * Imaging (Routine) - Closed Specialty Diagnoses / Procedures Referred By Eder t Referred To Contact Radiology Diagnoses Alcoholic cirrhosis of liver with ascites Procedures US Guided Abdominal Paracentesis Marianna Gordon APRN [address] [place] [address] Phone: tel: fax: Referral ID Status Reason Start Date Expiration Date Visits Re quested Visits Authorized [id number] Closed 07/25/2025 01/24/2027 1 1 Reason for Visit * Auth/Cert (Routine) Specialty Diagnoses / Procedures Referred By Contherbert t Referred To Contact Diagnoses Hepatic encephalopathy (CMS/HCC) Urinary tract infection without hematuria, site unspecified decompensated liver cirrhosis and uti Sushma Meza MD [address] [facility] [address] [place] [address] Phone: tel: fax: [facility] [address] [place] [address] Phone: tel: Referral ID Status Reason Start Date Expiration Date Visits Re quested Visits Authorized [id number] 1 1 Encounter Details Date Type Department Care Team (Latest Contact Info) Description 2025 8:47 AM EDT - 2025 11:59 PM EDT Hospital Encounter [facility] Interventional Radiology [address] [place] [address] Kami Cool RN HOSPTIAL TECHNICAL SALES ENGINEER RECOVERY Alcoholic cirrhosis of liver with ascites [...] How often do you attend [facility] or anglican services? Patient unable to answer 01/10/2025 Do you belong to any clubs o r organizations such as [employer], [employer], [employer] or athletic groups, or school groups? Patient [...] often do you attend chur ch or anglican services? Never 05/29/2025 Do you belong to [...] more drinks on one occasion? Never 06/25/2025 [facility] - Occupational Stress Questionnaire Answer Date [...] in a nursing home (including now)? No 06/26/2025 CAGE ASSESSMENT [...] drink first t kennedy in the morning (EYE-CITY DETECTIVE) to steady your nerves or to get rid of a hangover? 0 06/25/2025 CAGE Questionnaire Score 0 025 Utilities Answer Date Recorded In the past 12 months has th e [employer], gas, oil, or water company threatened to [...] 1 03/01/2025 ergocalciferol (Vitamin D-2) 1.25 MG (31226 UT) capsuleIndication s:Vitamin D deficiency Take 1 [...] APRN, DNP - 2025 10:00 AM EDT Vascular and [...] is no recent study available for direct scee-qm-rvnu comparison. Assessment & Plan: Decompensated cirrhosis, MASH [...] the care of this patient. Shaniqua Mccurdy, WARDROBE SPECIALTY WORKER Interventional Radiology [phone] [1] Past Medical History: Diagnosis Date ADHD (attention deficit hyperactivity disorder) Allergic Anxiety disorder, unspecified Anxiety Bleeding gums Blood in urine Cataract Chronic kidney disease Cirrhosis (CMS/HCC) Colon cancer screening 09/20/2019 Added automatically from request for surgery [id number] Coronary artery disease Depression 1996 Diabetes mellitus [...] 1979 BLADDER SURGERY N/A Bladder surgery from [facility] BREAST BIOPSY 2011 BREAST SURGERY 2010 BUNIONECTOMY Right CATARACT EXTRACTION Bilateral 2016 CHOLECYSTECTOMY 1979 ESOPHAGOGASTRODUODENOSCOPY HYSTERECTOMY N/A Hysterectomy from [facility] KNEE SURGERY Bilateral ORAL SURGERY N/A Oral surgery from [facility] OTHER SURGICAL HISTORY 2014 ROOT CANAL WISDOM [...] Rfl: 1 ergocalciferol (Vitamin D-2) 1.25 MG (13470 UT) capsule, Take 1 capsule by mouth [...] Description 09/17/2025 9:45 AM EDT Clinical Support [facility] [place] [address] [facility] [address] [place] [address] 09/17/2025 10:30 AM EDT Social Work [facility] [place] [address] [facility] [address] [place] [address] Lea Reilly, [place] [id number] 09/17/2025 11:20 AM EDT Office Visit [facility] [place] [address] [facility] [address] [place] [address] Octavia Herrera, MARIA GUADALUPE [address] [facility] [address] [place] [address] 09/19/2025 10:30 AM EDT Appointment [facility] Inter[facility] Radiology [address] [place] [address] 09/19/2025 11:30 AM EDT Appointment [facility] Inter[facility]iology [address] [place] [address] 09/26/2025 7:30 AM EST Appointment [facility] [address] [place] [address] 09/26/2025 8:30 AM EST Appointment [facility] Inter[facility] Radiology [address] [place] [address] 10/01/2025 9:00 AM EST Office Visit [facility] [address] [facility] [place] [address] Lillie Pritchard MD [address] [place] [address] [id number] 10/03/2025 12:30 PM EST Appointment [facility]iology [address] [place] [address] 10/03/2025 1:30 PM EST Appointment [facility] Inter[facility] Radiology [address] [place] [address] 12/20/2025 11:00 AM EST Office Visit [facility] Endocrinology [address] [place] [address] Miranda Hobson, WARDROBE SPECIALTY WORKER [address] [facility] [address] [place] [address] documented as of this encounter [...] hepatic hydrothorax. Patient presents for thoracentesis. TECHNIQUE: Coat Baster: ADRI Glasgow Procedure: Limited chest ultrasound completed [...] intermittenthepatic hydrothorax. Patient presents for thoracentesis. TECHNIQUE: Coat Baster: WARDROBE SPECIALTY WORKER Micheal Sorianoless Procedure: Limited chest ultrasound completed with small [...] MD on 08/17/2025 1:04 AM us Marianna N Cheeks WARDROBE SPECIALTY WORKER IMG US PROCEDURES Final Resu lt * [...] hepatic hydrothorax. Patient presents for paracentesis. TECHNIQUE: Coat Baster: ADRI Glasgow Secondary Pl Sql Developer: None. Rad Dose: NA Medications: Continuous physiologic [...] intermittenthepatic hydrothorax. Patient presents for paracentesis. TECHNIQUE: Coat Baster: ADRI Glasgow Secondary Pl Sql Developer: None. Rad Dose: NA Medications: Continuous physiologic [...] Fluid 0.8 g/dL 2025 11:55 AM EDT [facility] Peritoneal Fluid Peritoneal cavity structure / Unknown Non-blood Collection / Unknown 2025 9:25 AM EDT 2025 10:45 AM EDT Narrative [facility] - 2025 11:55 AM EDT This test was developed and its performance characteristics determined by [facility]. The U.S. Food and Drug Administration has not approved or cleared this test. However, FDA clearance or approval is not currently required for clinical use. The results are not intended to be used as the sole means for clinical diagnosis or patient management decisions. us Micheal E Pee WARDROBE SPECIALTY WORKER, DNP LAB BODY FLUIDS AND ST OOLS ORDERABLES Final Result Performing Organization Address [facility] de Phone Number [facility] [address] [place] [address] * (ABNORMAL) Body Fluid Cell Count W/O Diff (2025 9:25 AM EDT) Specimen Source, Body Fluid Peritoneal Fluid 2025 2:25 PM EDT [facility] Specimen Type Body Fluid 2025 2:25 PM EDT [facility] Color, Body fluid Yellow LAB HEMATOLOGY METHOD 2025 2:25 PM EDT [facility] Appearance, Body fluid Cloudy(A) LAB HEMATOLOGY METHOD 2025 2:25 PM EDT [facility] Volume, Body fluid 45.0 cc LAB HEMATOLOGY METHOD 2025 2:25 PM EDT [facility] Red Blood Cell Count, Body fluid 4,000 uL LAB HEMATOLOGY METHOD 2025 2:25 PM EDT [facility] Total Nucleated Cell Count, Body fluid 129 uL LAB HEMATOLOGY METHOD 2025 2:25 PM EDT [facility] Fluid Container Specimen received in miscellaneous container LAB HEMATOLOGY METHOD 2025 2:25 PM EDT [facility] Body Fluid Peritoneal fluid / Unknown Non-blood Collection / Unknown 2025 9:25 AM EDT 2025 10:44 AM EDT us Micheal Glasgow WARDROBE SPECIALTY WORKER, DNP LAB BODY FLUIDS AND ST OOLS ORDERABLES Final Result Performing Organization Address [facility] Co de Phone Number [facility] [address] [place] [address] documented in this encounter Visit Diagnoses Diagnosis [...] documented as of this encounter Care Teams [employer] Relationship Specialty Start Date End Date Alvarez Zimmer MD [address] [place] [address] PCP - General Family Medicine 12/07/24 09/02/25 Lea Fernando [address] [place] [address] Solutions Executive Cloud Sales Endocrinology 08/29/24 Rachel Ray APRN [address] [place] [address] Nurse Practitioner Gastroenterology 09/24/24 Tamera Isabel, MG VALUE-BASED TRANSFORMATION PROGRAM Licensed Practical Nurse 05/29/25 documented as of this encounter
--- OUTSIDE RECORDS SUMMARY | 2025-08-18 05:21 | XMS_ITS | Encounter Summary ---
Author Organization [facility] Address [address] [place] [address] Care Team Providers Care Wood Boring Machine Operator Name Role Phone Lea Fernando Unavailable [phone] Rachel Ray IT SPECIALIST Unavailable [phone] Alvarez Zimmer MD Primary Care Provider [phone] Tamera Isabel PUG MILL OPERATOR Unavailable Unavailabl e Reason for Referral * Consultation (Routine) - Closed Specialty Diagnoses / Procedures Referred By Eder zhu Referred To Contact Family Medicine Diagnoses Hepatic encephalopathy (CMS/HCC) Sushma Meza MD [address] [facility] [address] [place] [address] Phone: tel: fax: Referral ID Status Reason Start Date Expiration Date V isits Requested Visits Authorized [id number] Closed Specialty Services Required 08/20/2025 02/19/2027 1 1 Scheduling Instructions TCM, hepatic enceph Reason for Visit * Reason Comments Shortness of Breath * Auth/Cert (Routine) Specialty Diagnoses / Procedures Referred By Eder zhu Referred To Contact Diagnoses Hepatic encephalopathy (CMS/HCC) Urinary tract infection without hematuria, site unspecified decompensated liver cirrhosis and uti Sushma Meza MD [address] [place] [address] Phone: tel: fax: [facility] [address] [place] [address] Phone: tel: Referral ID Status Reason Start Date Expiration Date Visits Re quested Visits Authorized [id number] 1 1 Encounter Details Date Type Department Care Team (Late st Contact Info) Description 08/18/2025 5:21 AM EDT - 08/20/2025 3:15 PM EDT Hospital Encounter [facility] [address] [place] [address] Alvarez Brice MD [address] [place] [address] Ernesto Ramírez MD [address] [place] [address] Sushma Meza MD [address] [facility] [address] [place] [address] Hepatic encephalopathy (CMS/HCC) (Primary Dx); Urinary tract infection without hematuria, site unspecified Discharge Disposition: [facility] Social History Tobacco Use Types Packs/Day [...] Answer Date Recorded Patient Health Questionnaire-2 Score 6 09/03/2025 PHQ-9 Answer Date Recorded Patient Health Questionnaire-9 Score 24 09/03/2025 Humiliation, Afraid, Rape, and Kick questionnair e [...] you have a drink containing alcohol? Never 09/03/2025 Q2: How many drinks containi ng alcohol do you have on a typical day when you are drinking? Patient does not drink Q3: How often do you have si x or more drinks on one occasion? Never 09/03/2025 [facility] [...] any time in the past 12 m [facility], were you homeless or living in a nursing home (including now)? No 08/19/[address] [facility] Utilities Answer Date Recorded In the past [...] drink first t kennedy in the morning (EYE-IC ENGINEER) to steady your nerves or to [...] Score Answer Date of Assessment Author 0 09/03/2025 8:[address] razia Mancini CNA * Question Answer Date of Assessment Author Q1: How often do you have a drink containing alcohol? Never 09/03/2025 8:53 AM EDT Bari Mancini CNA Q2: How many drinks containing alcohol do you have on a typical day when you are drinking? Patient does not drink 09/03/2025 8:53 AM Bari Shankar CNA Q3: How often do you have six or more drinks on one occasion? Never 09/03/2025 8:53 AM Bari Shankar CNA * Over the past 2 weeks, how often have you been bothered by any of the following problems? Question Answer Date of Assessment Author Little interest or pleasure in doing things Nearly every day 09/03/2025 8:56 AM Bari Shankar CNA Feeling down, depressed, or hopeless Nearly every day 09/03/2025 8:56 AM Bari Shankar CNA Patient Health Questionnaire-2 Score 6 09/03/2025 8:56 AM Bari Shankar CNA * Question Answer Date of Assessment Author Trouble falling or staying asleep, or sleeping too much Nearly every day 09/03/2025 8:56 AM Bari Shankar CNA Feeling tired or having little energy Nearly every day 09/03/2025 8:56 AM Bari Shankar CNA Poor appetite or overeating Nearly every day 09/03/2025 8:56 AM Bari Shankar CNA Feeling bad about yourself - or that you are a failure or have let yourself or your family down Nearly every day 09/03/2025 8:56 AM Bari Shankar CNA Trouble concentrating on things, such as reading the newspaper or watching television Nearly every day 09/03/2025 8:56 AM Bari Shankar CNA Moving or speaking so slowly that other people could have noticed? Or the opposite - being so fidgety or restless that you have been moving around a lot more than usual. More than half the days 09/03/2025 8:56 AM Bari Shankar CNA Thoughts that you would be better off or hurting yourself in some way Several days 09/03/2025 8:56 AM Bari Shankar CNA Patient Health Questionnaire-9 Score 24 09/03/2025 8:56 AM Bari Shankar CNA * Calculated C-SSRS Risk Score (Lifetime/Recent) Answer Date of Assessment Author No Risk Indicated 09/03/2025 8:59 AM EDT Bari Mancini CNA * How difficult have these problems made it for you to do your work, take care of things at home, or get along with other people? Answer Date of Assessment Author Very difficult 09/03/2025 8:[address] razia Mancini CNA * How difficult have these problems made it for you to do your work, take care of things at home, or get along with other people? Answer Date of Assessment Author Very difficult 09/03/2025 8:[address] razia Shankar CNA * Question Answer Date of Assessment Author 1. Wish to be (Past 1 Month) No 025 8:59 AM Bari Shankar CNA 2. Non-Specific Active Suici liz Thoughts (Past 1 Month) No 09/03/2025 8:59 AM EDT Latricia Mancini CNA 6. Suicidal Behavior (Lifetime) No 8:59 AM EDT Bari Mancini CNA documented as of this encounter Discharge Instructions * Discharge Instructions* Siri Eaton MD - 08/20/2025 9:35 AM EDT Within 48 hours of discharge, someone will reach out to you to schedule a Transition of Care Management appointment (TCM) at [facility] on [address] This appointment will take place in [...] 03/27/2025 Accu-Chek Guide Test test strip 02/12/2025 bumetanide (Bumex) 0.5 MG tablet Take 1 [...] 1 03/01/2025 ergocalciferol (Vitamin D-2) 1.25 MG (77718 UT) capsuleIndication s:Vitamin D deficiency Take 1 [...] or vomiting. 60 tablet 2 07/09/2025 5 documented as of this encounter [...] part of the patient's medical record. * Addendum Note - Maura Murireta - 08/20/2025 3:15 PM EDTEncounter addended by: Maura Murrieta on: 09/04/2025 2:25 PM Actions taken: Utilization Review data saved * Nursing Note - Laverne Booth RN [...] RN Outcome: Ongoing, Progressing Flowsheets (Taken 08/20/2025 075) Progress: improving Outcome Evaluation: pt will continue to advance towards plan of care, redirecting pt as needed Plan of Care Reviewed With: patient Goal: Patient-Specific Goal (Individualized) 08/20/2025 1437 by Laverne Booth RN Outcome: Adequate for Care Transition 08/20/2025 075 by Laverne Booth RN Outcome: Ongoing, Progressing Flowsheets (Taken 08/20/2025 075) Patient/Family-Specific Goals (Include Timeframe): pt will remain free from falls/ injury throughout the day shift with use of bed alarm at all times when a care tker is not in the room Individualized Care Needs: pt safety Anxieties, Fears or Concerns: none stated Goal: Absence of Hospital-Acquired Illness or Injury 08/20/2025 1437 by Laverne Booth RN Outcome: [...] on Intervention: Prevent Infection Flowsheets (Taken 08/20/2025 0754) Infection Prevention: hand hygiene promoted rest/sleep promoted Goal: Optimal Comfort and Wellbeing 08/20/2025 143 by Laverne Booth RN Outcome: Adequate for [...] Intervention: Identify and Manage Contributors Flowsheets (Taken 08/20/2025 0754) Medication Review/Management: medications reviewed Self-Care Promotion: independence encouraged Intervention: Promote Injury-Free Environment Flowsheets (Taken 08/20/2025 075) Safety Promotion/Fall Prevention: activity supervised safety round/check completed Problem: Skin Injury Risk Increased Goal: Skin Health and Integrity 08/20/2025 143 by Laverne Booth RN Outcome: Adequate for Care Transition 08/20/2025753 by Laverne Booth RN Outcome: Ongoing, Progressing Intervention: Optimize Skin Protection Flowsheets (Taken 08/20/2025 0754) Activity Management: activity adjusted per tolerance Pressure [...] Intervention: Optimize Glycemic Control Flowsheets (Taken 08/20/2025 075) Hyperglycemia Management: blood glucose monitored Problem: Confusion Acute Goal: Optimal Cognitive Function 08/20/2025 143 by Laverne Booth RN Outcome: Adequate for Care Transition 08/20/2025753 by Laverne Booth RN Outcome: Ongoing, Progressing Intervention: Minimize Contributing Factors Flowsheets (Taken 08/20/2025753) Sensory Stimulation Regulation: care clustered Reorientation Measures: calendar in view clock in view Communication Support Strategies: active listening utilized * Lamberto John RN - 08/20/2025 11:26 AM EDT Images from the original note were not included. 83224 Paracentesis Your healthcare provider recommends that you [...] are taking. This includes all prescription medicines, bvve-sjm-fpisyye medicines, street drugs, herbs, vitamins, and other [...] fainting Last Reviewed Date: 2025 00:00:00 ?? [id number] The [employer]. All rights reserved. This information is not intended as a substitute for professional medical care. Always follow your healthcare professional's instructions. * Consults - Rosaline Quiroz - 08/20/2025 11:10 AM EDT Pastoral Care Note As planned, grinding and polishing laborer made a brief continuation of care visit and found patient feeling 'very sleepy.' Patient will ask nurse to page grinding and polishing laborer if a return visit is desired later. Referral From: Correspondence School Teacher Initiated Pastoral Care Provided For: Patient Patient Profile: Consult Reasons: Continuation of care Unable to Assess: Declined at this time Interventions: Interventions Provided: Patient declined visit Pastoral Care Outcomes: Patient Outcomes: Appreciative of Correspondence School Teacher Support, Is knowledgeable about Brimming Machine Operator Services * Shilpames OnFHIR - Lamberto Chacko RN - 08/20/2025 10:02 AM EDT Images from the original note were not included. [id number] Cirrhosis The liver is found on the [...] any medicine not prescribed. These include any uosn-vpf-yhkvaet medicines, dietary supplements, and herbs. Some of [...] for people with liver disease, contact: ? [employer] [facility], www.liverfoundation.org ? [employer] [facility], www.aasldfoundation.org/patients [...] rectum Last Reviewed Date: 2025 00:00:00 ?? 4030-8405 [employer]. All rights reserved. This information is not intended as a substitute for professional medical care. Always follow your healthcare professional's instructions. * John Vargas - Lamberto Chacko RN - 08/20/2025 10:02 AM EDT Images from the original note were not included. 11976 Urinary Tract Infections in Women Urinary tract [...] started. Last Reviewed Date: 2025 00:00:00 ?? 8739-9929 [employer], [employer]. All rights reserved. This information is not [...] x1 fur suspected UTI and transferred to [facility] for evaluation, which was then transferred to [facility] ED Course: Vitals POA: Pulse 51, [...] A 08/26/2025 1:00 PM Miranda Hobson APRN ENDOT[facility]BN[facility] 08/29/2025 10:00 AM IR US-1 [facility] 08/29/2025 11:00 AM IR US-1 [facility] 09/05/2025 10:00 AM IR US-1 [facility] 09/05/2025 11:00 AM IR US-1 [facility] 09/17/2025 9:45 AM TRANSPLANT LAB [facility] 09/17/2025 10:30 AM Lea Reilly LCSW [facility] 09/17/2025 11:20 AM Octavia Herrera PA [facility] Visit Vitals BP 82/60 (BP Location: Left [...] PCP name and Address: Alvarez Zimmer MD [address] [place] [address] Referring provider name and address: Rowan Castellano, DO [facility] [place] [address] Chief Concern, Brief History of Present Illness, [...] x1 fur suspected UTI and transferred to [facility] for evaluation, which was then transferred to [facility] ED Course: Vitals POA: Pulse 51, [...] A 08/26/2025 1:00 PM Miranda Hobson APRN ENDOTFBNBR [facility] 08/29/2025 10:00 AM IR US-1 [facility] 08/29/2025 11:00 AM IR US-1 [facility] 09/05/2025 10:00 AM IR US-1 [facility] 09/05/2025 11:00 AM IR -1 [facility] 09/17/2025 9:45 AM TRANSPLANT LAB [facility] 09/17/2025 10:30 AM Lea Reilly LCSW [facility] 09/17/2025 11:20 AM Octavia Herrera PA [facility] Visit Vitals BP 82/60 (BP Location: Left [...] mouth in the morning. ergocalciferol 1.25 MG (92714 UT) capsule Commonly known as: Vitamin D-2 [...] mellitus, with long-term current use of insulin ([facility]) Current Assessment & Plan 08/17/2025 [...] on stage 3b chronic kidney disease (CMS/HCC) Current Assessment & Plan 08/17/2025 Hospital [...] Transition of Care Management appointment (TCM) at [facility] on [address] This appointment will take place in [...] A 08/26/2025 1:00 PM Miranda Hobson APRN ENDOTFBNBR [facility] 08/29/2025 10:00 AM IR US-1 [facility] 08/29/2025 11:00 AM IR US-1 [facility] 09/05/2025 10:00 AM IR US-1 [facility] 09/05/2025 11:00 AM IR US-1 [facility] 09/17/2025 9:45 AM [facility] 09/17/2025 10:30 AM Lea Reilly LCSW [facility] 09/17/2025 11:20 AM Octavia Herrera PA [facility] [place] Test Results Pending At Discharge None Pertinent [...] normal. Discharge Disposition/Condition Disposition: Nursing facility (specify) [facility] Condition: Stable (s/sx potential [...] VIR that patient is discharging back to [place] today. Will change her scheduled paracentesis and [...] Goal (Individualized) Outcome: Ongoing, Progressing Flowsheets (Taken 08/20/2025 0754) [...] with hallucinations F: PO and Maintenance: Normal [id number] fluid restriction per day. E: Monitor and replace as necessary N: Adult diet Diet texture: Regular; Carbohydrate restriction: Consistent Carb 2 (80 gm max/meal); Dietary fluid restriction / 24h: 2000 ml Fluid GI: Hold home omeprazole. DVT prophylaxis: SCDs INR 2 w/o anticoagulation. Lines and Tubes: pIV CODE: DNR - Ok to intubate SOCIAL: Residential PT/OT: no needs anticipated at this time Consultants: Interventional radiology scheduled for thoracentesis/paracentesis on 08/22. Disposition: Medically Ready for Discharge: Today [X] Resolve Acute confusion and hallucinations [X] Complete course of IV ceftriaxone for suspected UTI [X] Follow up outpatient Thoracentesis and Paracentesis Scheduled for 08/22 with IR. Discharge planned for today with return to [facility]. Arash Cheng, MS3 * Care [...] Pain and Promote Comfort Flowsheets (Taken 08/19/2025 193) Pain Management Interventions: pain management plan reviewed [...] Progressing Intervention: Optimize Glycemic Control Flowsheets (Taken 08/19/20252243) Hyperglycemia Management: blood glucose monitored correctional insulin given * Consults - Maria Dolores Ontiveros, IT SPECIALIST, DNP - 08/19/2025 2:57 PM EDTAssociated Order(s): IP [...] Systems: Deferred due to patient location at [facility] Past Medical History Pertinent Negatives[1] Surgical [...] EXAM: Deferred due to patient location at [facility] Radiographics/Diagnostics: Imaging personally reviewed and reviewed [...] is no recent study available for direct bcvr-ek-ztfc comparison. Assessment & Plan: Decompensated cirrhosis, MASH [...] Lactulose at home, not taking regularly at half-way - Ascites/hepatic hydrothorax: Routine paracentesis/thoracentesis - Difficulty with titration of diuretics due to kidney function - INR 2.0 (H), Plt 58 (L) - VSS, Afebrile PLAN: - Will perform image guided paracentesis and right thoracentesis on 08/22/25 - Primary team to place specimen orders - Will consent prior to procedure - Hold anticoagulation at [place] evening prior to procedure - Goal INR <3 I spent 32 minutes on this encounter; which involved review/interpretation of diagnostics and reports, obtaining and/or reviewing separately obtained history, communicating findings, reviewing labs/imaging, documentation in EMR and formulating subsequent treatment plan. Thank you for allowing us to participate in the care of this patient. Maria Dolores Ontiveros, IT SPECIALIST, DNP Interventional Radiology [phone] [1] Past Medical History: Diagnosis Date ADHD (attention deficit hyperactivity disorder) Allergic Anxiety disorder, unspecified Anxiety Bleeding gums Blood in urine Cataract Chronic kidney disease Cirrhosis (CMS/HCC) Colon cancer screening 09/20/2019 Added automatically from request for surgery [id number] Coronary artery disease Depression 1996 Diabetes mellitus [...] 1979 BLADDER SURGERY N/A Bladder surgery from [facility] BREAST BIOPSY 2011 BREAST SURGERY 2010 BUNIONECTOMY Right CATARACT EXTRACTION Bilateral 2016 CHOLECYSTECTOMY 1980 ESOPHAGOGASTRODUODENOSCOPY HYSTERECTOMY N/A Hysterectomy from [facility] KNEE SURGERY Bilateral ORAL SURGERY N/A Oral surgery from [facility] OTHER SURGICAL HISTORY 2015 ROOT CANAL [...] Note Monika Zimmer 65 y.o. female CSN: [id number] Admission: 08/18/2025 5:21 AM Primary Problem: Hepatic encephalopathy (CMS/HCC) Naturalization Examiner reviewed chart and spoke with patient at bedside to complete this Initial Case Management Assessment. Pt is currently residing at [facility]. PCP: Alvarez Zimmer MD Emergency Contact: Extended Emergency Contact Information Primary Emergency Contact: Irvin Zimmer Mobile Relation: Son Preferred language: [employer] Floor Supervisor needed? No Secondary Emergency Contact: Lj Bernal Mobile Relation: Sister Mother: Karmie Singletary Mobile Insurance: Primary Visit Coverage Payer Plan Sponsor Code Group Number Group Name HUMANA MEDICARE HUMANA MEDICARE [id number] Primary Visit Coverage Subscriber Subscriber ID Subscriber Name Subscriber SSN Subscriber Address [id number] Monika Zimmer Janet [id number] [address] [place] [address] Secondary Visit Coverage Payer Plan Sponsor Code Group Number Group Name MEDICAID-[place] MEDICAID TRADITIONAL Secondary Visit Coverage Subscriber Subscriber ID Subscriber Name Subscriber SSN Subscriber Address [id number] MONIKA ZIMMER [id number] [address] [place] [address] Patient information: Primary Caregiver: Other (Comment) Support System: Immediate family, Extended family Daily Living Activities: Functional Status: Moderate assistance Living Arrangements: Residential Type of Residence: penitentiary[facility]residential care [address] [place] [address] Smoker in the Home?: No Current DME: [...] DME Provider: [facility] Living Will/Advance Directive/Power of Technology Assistant /Guardian: Advance Directive: Patient has advance directive, copy in chart Information Provided on Healthcare Directives: Yes Pre-existing DNR/DNI Order: Yes, notify physician for order Patient Requests Assistance: No Additional Comments: Venessa Brown * Consults - Jocelin Urban RD - 08/19/2025 11:04 AM EDT Adult Nutrition Evaluation Note Monika Zimmer 65 y.o. female CSN: [id number] Room/Bed 631/631A Nutrition evaluation type: screen Reason for evaluation: [...] Supplemental oxygen O2 Delivery Method: Nasal cannula Shamir Coma Scale Score: 15 Edd Scale [...] 30.96 Weight Evaluation: Obese-Class 1 (BMI 30-34.9) Elba Body Weight (kg): 56.8 kg Percent Elba Body Weight: 149 Adjusted Body Weight (kg): [...] oz) Estimated Needs: Kcal/ K-35 Kcal Provided: 8065-3137 Kcal Needs Based On: Adjusted weight (64 kg) Gm Protein/ Kg : 1.2-1.5 Protein Provided: 77-96 Protein Needs Based On: Adjusted weight (64 kg) Fluid Provided: per team Metabolic Cart Study Results: Current Nutrition Intake: Diet Supplements: None Diet Order: Adult Diet Diet Texture: Regular Adult Carbohydrate Restriction: Consistent CHO 2 (5090-1504 Deniz, 80 g/meal) Adult Sodium Restriction: (-) Adult Fluid Restriction / 24 hr: 2000 ml fluid Percent Meals Eaten (%): 33% avg x 1 meal Diet Experience and Nutrition History: Diet Education Provided: Will monitor Pertinent home medications: Medications Ordered Prior to Encounter[6] Druze needs: Nutrition Focused Physical Exam: Unable to [...] with hx of dysphagia, may benefit from FIELD SPECIALIST consult this admission to determine the safest [...] 09/20/2019 Added automatically from request for surgery [id number] Coronary artery disease Depression 1996 Diabetes mellitus [...] 1979 BLADDER SURGERY N/A Bladder surgery from [facility] BREAST BIOPSY 2011 BREAST SURGERY 2009 BUNIONECTOMY Right CATARACT EXTRACTION Bilateral 2016 CHOLECYSTECTOMY 1979 ESOPHAGOGASTRODUODENOSCOPY HYSTERECTOMY N/A Hysterectomy from [facility] KNEE SURGERY Bilateral ORAL SURGERY N/A Oral surgery from [facility] OTHER SURGICAL HISTORY 2014 ROOT CANAL WISDOM [...] tablet 1 ergocalciferol (Vitamin D-2) 1.25 MG (92536 UT) capsule Take 1 capsule by mouth [...] 08/19/2025 9:15 AM EDT Pastoral Care Note Correspondence School Teacher on rounds made initial visit to this recent (re-)admit, who shared about her life and medical journey. She currently lives in a half-way and (with help from her sister and [...] up. As requested, prayers were provided and grinding and polishing laborer will plan to visit on shift tomorrow. Referral From: Correspondence School Teacher Initiated Pastoral Care Provided For: Patient Patient Profile: Consult Reasons: Initial visit Spiritual Assessment: Support Systems/ Spiritual Resources: Nicolasa, Family, Prayer Spiritual Needs: Emotional support, Prayer, Spiritual support Spiritual Issues: Chronic pain/ illness, Isolation/ loneliness, Family concerns Interventions: Interventions Provided: Emotional support, Life review, Prayer, Spiritual support, Supportive Listening, Introduced Patient/Family to Correspondence School Teacher Services, Consulted with care team Pastoral Care Outcomes: Patient Outcomes: Expresses acceptance, Is knowledgeable about Brimming Machine Operator Services, Demonstrates and/or verbalizes increased comfort, Endorses increased sense of connection, Expresses intent to participate/comply in plan of care, Is functionally engaged in meaning making, Appreciative of Correspondence School Teacher Support * Progress Notes - Siri Eaton [...] pleural effusion and ascites on CT 08/[facility]. US Abdomen Focused Region Other Result [...] CODE: DNR - Ok to intubate SOCIAL: Residential PT/OT: no needs anticipated at this time Consultants: Consult interventional radiology pending imaging results for thoracentesis/paracentesis. Disposition: Medically Ready for Discharge:Anticipated in 2-4 Days Finish 3 day course of ceftriaxone, track creatinine for CARLOTTA resolution, determine need for thoracentesis/paracentesis, and resolve hallucinations prior to discharge. Discharge planned for return to [facility]. Aarsh Demarcoard, MS3 . . . . . . . . . . . . . . . . . . I personally saw and examined this patient with the medical student. I have edited and agree with all of the above history, findings, and assessment & plan. Siri Eaton MD Family Medicine, PGY-2 [facility] Cosigned by Sushma Meza MD at [...] Review Outcome: Ongoing, Progressing Flowsheets (Taken 08/19/2025 0413) Progress: improving Outcome Evaluation: Pt now confused [...] VTE (Venous Thromboembolism) Risk Flowsheets (Taken 08/19/2025 0400 by Lida Zimmer) VTE Prevention/Management: bilateral lower [...] declines Intervention: Provide Person-Centered Care Flowsheets (Taken 08/19/2025 041) Trust Relationship/Rapport: care explained choices provided questions [...] x1 fur suspected UTI and transferred to [facility] for evaluation, which was then transferred to [facility] ED Course: Vitals POA: Pulse 51, [...] 0 min Stress: Stress Concern Present (05/29/2025) [place] [employer] - Occupational Stress Questionnaire Feeling of Stress: Very much Social Connections: Socially Isolated (05/29/2025) Social Connection and Isolation Panel Frequency of Communication with Friends and Family: More than three times a week Frequency of Social Gatherings with Friends and Family: Once a week Attends Druze Services: Never Active Member of Clubs or [...] plans for current transplant since now in half-way according to patient. Next appointment is on [...] CODE: DNR - Ok to intubate SOCIAL: penitentiary PT/OT: Not needed at this time DISPO/Discharge Criteria: [ ] Completion of Antibiotics for UTI [ ] Clinical improvement Barrie Wells MD Family Medicine PGY-2 [1] Past Medical History: Diagnosis Date ADHD (attention deficit hyperactivity disorder) Allergic Anxiety disorder, unspecified Anxiety Bleeding gums Blood in urine Cataract Chronic kidney disease Cirrhosis (CMS/HCC) Colon cancer screening 09/20/2019 Added automatically from request for surgery [id number] Coronary artery disease Depression 1995 Diabetes mellitus [...] stage 3b (CMS/HCC) Coronary artery disease of [place] artery of [place] heart with stable angina pectoris (CMS/HCC) Diabetic [...] 1979 BLADDER SURGERY N/A Bladder surgery from [facility] BREAST BIOPSY 2011 BREAST SURGERY 2010 BUNIONECTOMY Right CATARACT EXTRACTION Bilateral 2016 CHOLECYSTECTOMY 1979 ESOPHAGOGASTRODUODENOSCOPY HYSTERECTOMY N/A Hysterectomy from [facility] KNEE SURGERY Bilateral ORAL SURGERY N/A Oral surgery from [facility] OTHER SURGICAL HISTORY 2014 ROOT CANAL WISDOM TOOTH EXTRACTION [4] Family [...] Son Depression Son Jp Zimmer Asthma Son Jpamrik Zimmer Mental illness Son Jp Zimmer Depression Son Viralarnoldo Zimmer Diabetes Son Viralarnoldo Zimmer [5] Allergies Allergen Reactions Penicillins Other [...] of UTI and decompensated cirrhosis. Follows with [facility] for [facility] paracent[facility], most recently on 08/15. [...] disoriented. Comments: Awake Psychiatric: Behavior: Behavior normal. [place] Coma Scale Score: 14 ED Course & [...] Family Medicine Provider: (Not yet assigned) Acknowledged KATIESUNSHINEJOHNNY 08/18/25626 ED to floor bed request Once [...] WAGNER 08/18/25 0546 CMP STAT In process KATIESUNSHINE, JOHNNY Rivera 08/18/25 0546 Magnesium STAT In process JOHNNY WAGNER 08/18/25 0546 Phosphorus STAT In process KRISTY, JOHNNY Rivera 08/18/25 0546 Lipase STAT In process KATIESUNSHINE, JOHNNY Rivera 08/18/25 0546 Blood gas panel, venous STAT Final result JOHNNY WAGNER ED Course as of 08/18/25 0644 [facility] Aug 18, 2025 05 Patient presents to [...] ED Prescriptions None Disposition Admit Requested Location: [facility] [[id number]] - [1] Past Medical History: Diagnosis Date ADHD (attention deficit hyperactivity disorder) Allergic Anxiety disorder, unspecified Anxiety Bleeding gums Blood in urine Cataract Chronic kidney disease Cirrhosis ([facility]) Colon cancer screening 09/20/2019 Added automatically from request for surgery [id number] Coronary artery disease Depression 1996 Diabetes mellitus type 2 in obese 04/22/2015 Diabetic nephropathy ([facility]) Dry mouth Epigastric pain 08/02/2019 ETD (eustachian tube dysfunction) 07/13/2018 GERD (gastroesophageal reflux disease) Headache Heart murmur Hepatic encephalopathy ([facility]/HCC) 10/14/2024 HL (hearing loss) Hypoparathyroidism Inflammatory bowel [...] 1979 BLADDER SURGERY N/A Bladder surgery from [facility] BREAST BIOPSY 2011 BREAST SURGERY 2010 BUNIONECTOMY Right CATARACT EXTRACTION Bilateral 2016 CHOLECYSTECTOMY 1979 ESOPHAGOGASTRODUODENOSCOPY HYSTERECTOMY N/A Hysterectomy from [facility] KNEE SURGERY Bilateral ORAL SURGERY N/A Oral surgery from [facility] OTHER SURGICAL HISTORY 2014 ROOT CANAL WISDOM [...] disorder Father Eliseo Singletary Diabetes Father Eliseo Singleatry Skin cancer Father Eliseo Singletary Cancer Father [...] Description 09/17/2025 9:45 AM EDT Clinical Support [facility] [address] [place] [address] 09/17/2025 10:30 AM EDT Social Work [facility] [address] [place] [address] Lea Reilly, [place] [address] 09/17/2025 11:20 AM EDT Office Visit [facility] [address] [place] [address] Octavia Herrera, MARIA GUADALUPE [address] [facility] [address] [place] [address] 09/19/2025 10:30 AM EDT Appointment [facility] [address] [place] [address] 09/19/2025 11:30 AM EDT Appointment [facility] [address] [place] [address] 09/26/2025 7:30 AM EST Appointment [facility] [address] [place] [address] 09/26/2025 8:30 AM EST Appointment [facility] [address] [place] [address] 10/01/2025 9:00 AM EST Office Visit [facility] [address], [address] [place] [address] Lillie Pritchard MD [address] [place], [place] [id number] 10/03/2025 12:30 PM EST Appointment [facility] [address] [place] [address] 10/03/2025 1:30 PM EST Appointment [facility] [address] [place] [address] 12/20/2025 11:00 AM EST Office Visit [facility] Endocrinology [address] [place] [address] Miranda Hobson, IT SPECIALIST [address] [place] [phone] Scheduled Referrals Name Type Priority Associated Diagnoses [...] - 99 mg/dL 08/20/2025 12:07 PM EDT [facility] Comment:Accuracy of [...] 08/20/2025 12:07 PM EDT [facility] Skilled Laborer ID Kevin Serrano 12:07 PM EDT [facility] Device ID [id number] 08/20/2025 12:07 PM EDT [facility] Specimen Type POC Capillary 08/20/2025 12:07 PM EDT [facility] Blood Capillary blood specimen / Unknown 08/20/2025 12:05 PM EDT 08/20/2025 12:07 PM EDT Sushma Meza MD LAB POINT OF CARE TE ST DOCKED DEVICE UNSOLICITED RESULTS Final Result [facility] [address] [place] [address] * (ABNORMAL) POCT glucose meter (08/20/2025 7:23 AM EDT) [facility] POCT Glucose 259(H) 74 - 99 mg/dL 08/20/2025 7:24 AM EDT [facility] Comment:Accuracy of [...] 08/20/2025 7:24 AM EDT [facility] Skilled Laborer ID Kevni Serrano 7:24 AM EDT [facility] Device ID [id number] 08/20/2025 7:24 AM EDT [facility] Specimen Type POC Capillary 08/20/2025 7:24 AM EDT [facility] Blood Capillary blood specimen / Unknown 08/20/2025 7:23 AM EDT 08/20/2025 7:24 AM EDT us Sushma Meza MD LAB POINT OF CARE TE ST DOCKED DEVICE UNSOLICITED RESULTS Final Result Performing Organization Address City/[facility] Co de Phone Number [facility] [address] [place] [address] * (ABNORMAL) Protime-INR (08/20/2025 3:26 AM EDT) Prothrombin Time 23.0(H) 12.0 - 14.3 sec 08/20/2025 3:51 AM EDT [facility] INR 2.0(H) 0.9 - 1.1 08/20/2025 3:51 AM EDT [facility] Blood Venous blood specimen / [...] INR 2.5 to 3.5 Prevention of recurrent SD INR 2.5 to 3.5 Result Maribell Meza MD LAB BLOOD ORDERABLES Final R esult [facility] [address] [place] [address] * Phosphorus (08/20/2025 3:26 AM EDT) Phosphorus, Plasma 4.3 2.5 - 4.5 mg/dL 08/20/2025 4:14 AM EDT [facility] Blood Venous blood specimen / Unknown Venipuncture / Unknown 08/20/2025 3:26 AM EDT 08/20/2025 3:37 AM EDT us Sushma Meza MD LAB BLOOD ORDERABLES Final R esult [facility] [address] [place] [address] * (ABNORMAL) Magnesium (08/20/2025 3:26 AM EDT) [facility] Magnesium, Plasma 1.6(L) 1.9 - 2.4 mg/dL 08/20/2025 4:14 AM EDT [facility] Blood Venous blood specimen / Unknown Venipuncture / Unknown 08/20/2025 3:26 AM EDT 08/20/2025 3:37 AM EDT Sushma Meza MD LAB BLOOD ORDERABLES Final R [facility] Performing Organization Address [facility] Co de Phone Number [facility] [address] [place] [address] * (ABNORMAL) Comprehensive metabolic panel (08/20/2025 3:26 AM EDT) [facility] Glucose, Plasma 274(H) 74 - 99 mg/dL 08/20/2025 4:14 AM EDT [facility] BUN, Plasma 51(H) 8 - 23 mg/dL 08/20/2025 4:14 AM EDT [facility] Creatinine, Plasma 2.42(H) 0.60 - 1.10 mg/dL 08/20/2025 4:14 AM EDT [facility] BUN/Creatinine Ratio 21 08/20/2025 4:14 AM EDT [facility] Sodium, Plasma 132(L) 136 - 145 mmol/L 08/20/2025 4:14 AM EDT [facility] Potassium, Plasma 4.1 3.6 - 4.9 mmol/L 08/20/2025 4:14 AM EDT [facility] Chloride, Plasma 101 97 - 107 mmol/L 08/20/2025 4:14 AM EDT [facility] CO2, Plasma 20(L) 22 - 29 mmol/L 08/20/2025 4:14 AM EDT [facility] Anion Gap 11 6 - 16 mmol/L 08/20/2025 4:14 AM EDT [facility] Total Calcium, Plasma 8.4(L) 8.9 - 10.2 mg/dL 08/20/2025 4:14 AM EDT [facility] Total Protein 5.8(L) 6.3 - 7.9 g/dL 08/20/2025 4:14 AM EDT [facility] Albumin, Plasma 2.8(L) 3.5 - 5.2 g/dL 08/20/2025 4:14 AM EDT [facility] AST, Plasma 32 10 - 35 U/L 08/20/2025 4:14 AM EDT [facility] ALT, Plasma 12 10 - 35 U/L 08/20/2025 4:14 AM EDT [facility] Alkaline Phosphatase, Plasma 175(H) 46 - 142 U/L 08/20/2025 4:14 AM EDT [facility] Total Bilirubin, Plasma 1.5(H) 0.2 - 1.1 mg/dL 08/20/2025 4:14 AM EDT [facility] eGFRcr 22.0 mL/min/1.7 3m*2 08/20/2025 4:14 AM EDT [facility] Comment:Reported eGFRcr in m L/min/1.73m2 is based the CKD-EPI 2020 equation that does not use a race coefficient. Blood Venous blood specimen / Unknown Venipuncture / Unknown 08/20/2025 3:26 AM EDT 08/20/2025 3:37 AM EDT us Sushma Meza MD LAB BLOOD ORDERABLES Final R esult [facility] [address] [place] [id number] * (ABNORMAL) CBC and differential (08/20/2025 3:26 AM EDT) [facility] WBC Count 4.76 3.70 - 10.30 10*3/uL LAB HEMATOLOGY METHOD 08/20/2025 3:42 AM EDT [facility] RBC Count 2.72(L) 3.90 - 5.20 10*6/uL LAB HEMATOLOGY METHOD 08/20/2025 3:42 AM EDT [facility] HGB 8.6(L) 11.2 - 15.7 g/dL LAB HEMATOLOGY METHOD 08/20/2025 3:42 AM EDT [facility] HCT 24.9(L) 34.0 - 45.0 % LAB HEMATOLOGY METHOD 08/20/2025 3:42 AM EDT [facility] Platelet Count 59(L) 155 - 369 10*3/uL LAB HEMATOLOGY METHOD 08/20/2025 3:42 AM EDT [facility] MCV 92 79 - 98 fL LAB HEMATOLOGY METHOD 08/20/2025 3:42 AM EDT [facility] MCH 31.6 26.0 - 32.0 pg LAB HEMATOLOGY METHOD 08/20/2025 3:42 AM EDT [facility] MCHC 34.5 30.7 - 35.5 g/dL LAB HEMATOLOGY METHOD 08/20/2025 3:42 AM EDT [facility] RDW 17.2(H) 11.5 - 14.5 % LAB HEMATOLOGY METHOD 08/20/2025 3:42 AM EDT [facility] MPV 10.9 8.8 - 12.5 fL LAB HEMATOLOGY METHOD 08/20/2025 3:42 AM EDT [facility] nRBC 0.0 <=0.0 per 100 WBCs LAB HEMATOLOGY METHOD 08/20/2025 3:42 AM EDT [facility] Differential Type Automated LAB HEMATOLOGY METHOD 08/20/2025 3:42 AM EDT [facility] Neutrophils % 64 % LAB HEMATOLOGY METHOD 08/20/2025 3:42 AM EDT [facility] Lymphocytes % 16 % LAB HEMATOLOGY METHOD 08/20/2025 3:42 AM EDT [facility] Monocytes % 15 % LAB HEMATOLOGY METHOD 08/20/2025 3:42 AM EDT [facility] Eosinophils % 4 % LAB HEMATOLOGY METHOD 08/20/2025 3:42 AM EDT [facility] Basophils % 1 % LAB HEMATOLOGY METHOD 08/20/2025 3:42 AM EDT [facility] Immature Granulocytes % 0 % LAB HEMATOLOGY METHOD 08/20/2025 3:42 AM EDT [facility] Neutrophils Absolute 3.02 1.60 - 6.10 10*3/uL LAB HEMATOLOGY METHOD 08/20/2025 3:42 AM EDT [facility] Lymphocytes Absolute 0.77(L) 1.20 - 3.90 10*3/uL LAB HEMATOLOGY METHOD 08/20/2025 3:42 AM EDT [facility] Monocytes Absolute 0.69 0.30 - 0.90 10*3/uL LAB HEMATOLOGY METHOD 08/20/2025 3:42 AM EDT [facility] Eosinophils Absolute 0.21 0.00 - 0.50 10*3/uL LAB HEMATOLOGY METHOD 08/20/2025 3:42 AM EDT [facility] Basophils Absolute 0.05 0.00 - 0.10 10*3/uL LAB HEMATOLOGY METHOD 08/20/2025 3:42 AM EDT [facility] Immature Granulocytes Absolute 0.02 0.00 - 0.06 10*3/uL LAB HEMATOLOGY METHOD 08/20/2025 3:42 AM EDT [facility] Blood Venous blood specimen / Unknown Venipuncture / Unknown 08/20/2025 3:26 AM EDT 08/20/2025 3:39 AM EDT Narrative [facility] - 08/20/2025 3:42 AM EDT Therapeutic decision making should be based on absolute values, rather than percentages. us Sushma Meza MD LAB BLOOD ORDERABLES Final R esult [facility] [address] [place] [address] * (ABNORMAL) POCT glucose meter (08/20/2025 3:25 AM EDT) POCT Glucose 256(H) 74 - [...] for testing. Comment 08/20/2025 3:29 AM EDT [facility] Skilled Laborer ID Leonela Puga 08/20/2025 3:29 AM EDT [facility] Device ID [id number] 08/20/2025 3:29 AM EDT [facility] Specimen Type POC Capillary 08/20/2025 3:29 AM EDT [facility] Blood Capillary blood specimen / Unknown 08/20/2025 3:25 AM EDT 08/20/2025 3:29 AM EDT us Sushma Meza MD LAB POINT OF CARE TE ST DOCKED DEVICE UNSOLICITED RESULTS Final Result Performing Organization Address City/[facility] Co de Phone Number [facility] [address] [place] [address] * (ABNORMAL) POCT glucose meter (08/20/2025 12:19 AM EDT) POCT Glucose 289(H) 74 - 99 mg/dL [...] Comment 08/20/2025 12:22 AM EDT [facility] Skilled Laborer Leonela Boggs 08/20/2025 12:22 AM EDT [facility] Device ID [id number] 08/20/2025 12:22 AM EDT [facility] Specimen Type POC Capillary 08/20/2025 12:22 AM EDT [facility] Blood Capillary blood specimen / Unknown 08/20/2025 12:19 AM EDT 08/20/2025 12:22 AM EDT Sushma Meza MD LAB POINT OF CARE TE ST DOCKED DEVICE UNSOLICITED RESULTS Final Result Performing Organization Address City/[facility] de Phone Number [facility] [address] [place] [address] * (ABNORMAL) POCT glucose meter (08/19/2025 8:27 PM EDT) POCT Glucose 401(H) 74 - 99 mg/dL [...] for testing. Comment 08/19/2025 8:29 PM EDT [facility] Skilled Laborer ID Leonela Puga 08/19/2025 8:29 PM EDT [facility] Device ID [id number] 08/19/2025 8:29 PM EDT [facility] Specimen Type POC Capillary 08/19/2025 8:29 PM EDT [facility] Blood Capillary blood specimen / Unknown 08/19/2025 8:27 PM EDT 08/19/2025 8:29 PM EDT us Sushma Meza MD LAB POINT OF CARE TE ST DOCKED DEVICE UNSOLICITED RESULTS Final Result Performing Organization Address City/[facility] Co de Phone Number [facility] [address] [place] [address] * (ABNORMAL) POCT glucose meter (08/19/2025 4:23 PM EDT) POCT Glucose 424(H) 74 - 99 mg/dL 08/19/2025 4:25 PM EDT [facility] Comment:Accuracy of a [...] Comment 08/19/2025 4:25 PM EDT [facility] Skilled Laborer ID Kandice Urrutia 4:25 PM EDT [facility] Device ID [id number] 08/19/2025 4:25 PM EDT [facility] Specimen Type POC Capillary 08/19/2025 4:25 PM EDT [facility] Blood Capillary blood specimen / Unknown 08/19/2025 4:23 PM EDT 08/19/2025 4:25 PM EDT us Sushma Meza MD LAB POINT OF CARE TE ST DOCKED DEVICE UNSOLICITED RESULTS Final Result Performing Organization Address City/[facility]/ZIP Co de Phone Number [facility] [address] [place] [address] * XR Chest 1 View (08/19/2025 1:14 [...] the final edited report. Drafted by Otto Hapr MD on 08/19/2025 1:27 PM Final report signed by Golden Jin MD on 08/19/2025 2:43 PM Sushma Meza MD IMG XR PROCEDURES Final [...] - 51 umol/L 08/19/2025 12:55 PM EDT [facility] Blood Venous blood specimen / Unknown Venipuncture / Unknown 08/19/2025 12:22 PM EDT 08/19/2025 12:35 PM EDT us Sushma Meza MD LAB BLOOD ORDERABLES Final R esult Performing Organization Address City/[facility]/ZIP Co de Phone Number [facility] [address] [place] [address] * (ABNORMAL) POCT glucose meter (08/19/2025 11:18 AM EDT) [facility] POCT Glucose 408(H) 74 - 99 mg/dL 08/19/2025 11:20 AM EDT [facility] Comment:Accuracy of a [...] for testing. Comment 08/19/2025 11:20 AM EDT [facility] Skilled Laborer ID Dee Dee Rogers 08/19/20 11:20 AM EDT [facility] Device ID [id number] 08/19/2025 11:20 AM EDT [facility] Specimen Type POC Capillary 08/19/2025 11:20 AM EDT [facility] Blood Capillary blood specimen / Unknown 08/19/2025 11:18 AM EDT 08/19/2025 11:20 AM EDT Sushma Meza MD LAB POINT OF CARE TE ST DOCKED DEVICE UNSOLICITED RESULTS Final Result Performing Organization Address City/[facility] Co de Phone Number [facility] [address] [place] [address] * (ABNORMAL) POCT glucose meter (08/19/2025 7:34 AM EDT) [facility] POCT Glucose 238(H) 74 - 99 mg/dL [...] for testing. Comment 08/19/2025 7:36 AM EDT [facility] Skilled Laborer ID Dee Dee Rogers 08/19/20 7:36 AM EDT [facility] Device ID [id number] 08/19/2025 7:36 AM EDT [facility] Specimen Type POC Capillary 08/19/2025 7:36 AM EDT [facility] Blood Capillary blood specimen / Unknown 08/19/2025 7:34 AM EDT 08/19/2025 7:36 AM EDT us Sushma Meza MD LAB POINT OF CARE TE ST DOCKED DEVICE UNSOLICITED RESULTS Final Result Performing Organization Address City/[facility] de Phone Number [facility] [address] [place] [address] * (ABNORMAL) POCT glucose meter (08/19/2025 2:08 AM EDT) [facility] Signature POCT Glucose 257(H) 74 - 99 mg/dL [...] for testing. Comment 08/19/2025 2:09 AM EDT [facility] Skilled Laborer ID Lida Zimmer 08/19/2025 2:09 AM EDT [facility] Device ID [id number] 08/19/2025 2:09 AM EDT [facility] Specimen Type POC Capillary 08/19/2025 2:09 AM EDT [facility] Blood Capillary blood specimen / Unknown 08/19/2025 2:08 AM EDT 08/19/2025 2:09 AM EDT us Sushma Meza MD LAB POINT OF CARE TE ST DOCKED DEVICE UNSOLICITED RESULTS Final Result Performing Organization Address City/[facility]/ZIP Co de Phone Number [facility] [address] [place] [address] * (ABNORMAL) Protime-INR (08/19/2025 1:30 AM EDT) [...] INR 2.5 to 3.5 Prevention of recurrent SD INR 2.5 to 3.5 Sushma Meza MD LAB BLOOD ORDERABLES Final R esult Performing Organization Address City/[facility] Co de Phone Number [facility] [address] [place] [address] * Phosphorus (08/19/2025 1:06 AM EDT) Phosphorus, Plasma 4.0 2.5 - 4.5 mg/dL 08/19/2025 1:40 AM EDT [facility] Blood Venous blood specimen / Unknown Venipuncture / Unknown 08/19/2025 1:06 AM EDT 08/19/2025 1:10 AM EDT Sushma Meza MD LAB BLOOD ORDERABLES Final R esult [facility] [address] [place] [address] * Magnesium (08/19/2025 1:06 AM EDT) Magnesium, Plasma 1.9 1.9 - 2.4 mg/dL 08/19/2025 1:40 AM EDT [facility] Blood Venous blood specimen / Unknown Venipuncture / Unknown 08/19/2025 1:06 AM EDT 08/19/2025 1:10 AM EDT us Sushma Meza MD LAB BLOOD ORDERABLES Final R esult [facility] [address] [place] [address] * (ABNORMAL) Comprehensive metabolic panel (08/19/2025 1:06 AM EDT) Glucose, Plasma 284(H) 74 - 99 mg/dL 08/19/2025 1:40 AM EDT [facility] BUN, Plasma 47(H) 8 - 23 mg/dL 08/19/2025 1:40 AM EDT [facility] Creatinine, Plasma 2.66(H) 0.60 - 1.10 mg/dL 08/19/2025 1:40 AM EDT [facility] BUN/Creatinine Ratio 18 08/19/2025 1:40 AM EDT [facility] Sodium, Plasma 129(L) 136 - 145 mmol/L 08/19/2025 1:40 AM EDT [facility] Potassium, Plasma 3.9 3.6 - 4.9 mmol/L 08/19/2025 1:40 AM EDT [facility] Chloride, Plasma 99 97 - 107 mmol/L 08/19/2025 1:40 AM EDT [facility] CO2, Plasma 21(L) 22 - 29 mmol/L 08/19/2025 1:40 AM EDT [facility] Anion Gap 9 6 - 16 mmol/L 08/19/2025 1:40 AM EDT [facility] Total Calcium, Plasma 8.0(L) 8.9 - 10.2 mg/dL 08/19/2025 1:40 AM EDT [facility] Total Protein 6.0(L) 6.3 - 7.9 g/dL 08/19/2025 1:40 AM EDT [facility] Albumin, Plasma 3.1(L) 3.5 - 5.2 g/dL 08/19/2025 1:40 AM EDT [facility] AST, Plasma 35 10 - 35 U/L 08/19/2025 1:40 AM EDT [facility] ALT, Plasma 13 10 - 35 U/L 08/19/2025 1:40 AM EDT [facility] Alkaline Phosphatase, Plasma 161(H) 46 - 142 U/L 08/19/2025 1:40 AM EDT [facility] Total Bilirubin, Plasma 1.8(H) 0.2 - 1.1 mg/dL 08/19/2025 1:40 AM EDT [facility] eGFRcr 19.6 mL/min/1.7 3m*2 08/19/2025 1:40 AM EDT [facility] Comment:Reported eGFRcr in m L/min/1.73m2 is based the CKD-EPI 2020 equation that does not use a race coefficient. Blood Venous blood specimen / Unknown Venipuncture / Unknown 08/19/2025 1:06 AM EDT 08/19/2025 1:10 AM EDT Sushma Meza MD LAB BLOOD ORDERABLES Final R esult Performing Organization Address City/State/[facility] Co de Phone Number [facility] [address] [place] [address] * (ABNORMAL) CBC and differential (08/19/2025 1:06 AM EDT) WBC Count 3.57(L) 3.70 - 10.30 10*3/uL LAB HEMATOLOGY METHOD 08/19/2025 1:18 AM EDT [facility] RBC Count 2.78(L) 3.90 - 5.20 10*6/uL LAB HEMATOLOGY METHOD 08/19/2025 1:18 AM EDT [facility] HGB 8.8(L) 11.2 - 15.7 g/dL LAB HEMATOLOGY METHOD 08/19/2025 1:18 AM EDT [facility] HCT 25.5(L) 34.0 - 45.0 % LAB HEMATOLOGY METHOD 08/19/2025 1:18 AM EDT [facility] Platelet Count 58(L) 155 - 369 10*3/uL LAB HEMATOLOGY METHOD 08/19/2025 1:18 AM EDT [facility] MCV 92 79 - 98 fL LAB HEMATOLOGY METHOD 08/19/2025 1:18 AM EDT [facility] MCH 31.7 26.0 - 32.0 pg LAB HEMATOLOGY METHOD 08/19/2025 1:18 AM EDT [facility] MCHC 34.5 30.7 - 35.5 g/dL LAB HEMATOLOGY METHOD 08/19/2025 1:18 AM EDT [facility] RDW 17.7(H) 11.5 - 14.5 % LAB HEMATOLOGY METHOD 08/19/2025 1:18 AM EDT [facility] MPV 10.4 8.8 - 12.5 fL LAB HEMATOLOGY METHOD 08/19/2025 1:18 AM EDT [facility] nRBC 0.0 <=0.0 per 100 WBCs LAB HEMATOLOGY METHOD 08/19/2025 1:18 AM EDT [facility] Differential Type Automated LAB HEMATOLOGY METHOD 08/19/2025 1:18 AM EDT [facility] Neutrophils % 64 % LAB HEMATOLOGY METHOD 08/19/2025 1:18 AM EDT [facility] Lymphocytes % 16 % LAB HEMATOLOGY METHOD 08/19/2025 1:18 AM EDT [facility] Monocytes % 15 % LAB HEMATOLOGY METHOD 08/19/2025 1:18 AM EDT [facility] Eosinophils % 3 % LAB HEMATOLOGY METHOD 08/19/2025 1:18 AM EDT [facility] Basophils % 1 % LAB HEMATOLOGY METHOD 08/19/2025 1:18 AM EDT [facility] Immature Granulocytes % 1 % LAB HEMATOLOGY METHOD 08/19/2025 1:18 AM EDT [facility] Neutrophils Absolute 2.33 1.60 - 6.10 10*3/uL LAB HEMATOLOGY METHOD 08/19/2025 1:18 AM EDT [facility] Lymphocytes Absolute 0.57(L) 1.20 - 3.90 10*3/uL LAB HEMATOLOGY METHOD 08/19/2025 1:18 AM EDT [facility] Monocytes Absolute 0.52 0.30 - 0.90 10*3/uL LAB HEMATOLOGY METHOD 08/19/2025 1:18 AM EDT [facility] Eosinophils Absolute 0.11 0.00 - 0.50 10*3/uL LAB HEMATOLOGY METHOD 08/19/2025 1:18 AM EDT [facility] Basophils Absolute 0.02 0.00 - 0.10 10*3/uL LAB HEMATOLOGY METHOD 08/19/2025 1:18 AM EDT [facility] Immature Granulocytes Absolute 0.02 0.00 - 0.06 10*3/uL LAB HEMATOLOGY METHOD 08/19/2025 1:18 AM EDT [facility] Blood Venous blood specimen / Unknown Venipuncture / Unknown 08/19/2025 1:06 AM EDT 08/19/2025 1:10 AM EDT Narrative [facility]ALTH[facility] LAB - 08/19/2025 1:18 AM EDT Therapeutic decision making should be based on absolute values, rather than percentages. us Sushma Meza MD LAB BLOOD ORDERABLES Final R esult Performing Organization Address City/[facility]/ZIP Co de Phone Number [facility]ALTHC[facility] LAB [address] [place] [address] * (ABNORMAL) POCT glucose meter (08/18/2025 10:15 PM EDT) Pathologist [facility] POCT Glucose 367(H) 74 - 99 mg/dL 08/18/2025 10:16 PM EDT [facility] Comment:Accuracy of a [...] Comment 08/18/2025 10:16 PM EDT [facility] Skilled Laborer ID Melissa Carney 08/18/20 10:16 PM EDT [facility] LAB Device ID [id number] 08/18/2025 10:16 PM EDT [facility] LAB Specimen Type POC Capillary 08/18/2025 10:16 PM EDT [facility] Blood Capillary blood specimen / Unknown 08/18/2025 10:15 PM EDT 08/18/2025 10:16 PM EDT us Sushma Meza MD LAB POINT OF CARE TE ST DOCKED DEVICE UNSOLICITED RESULTS Final Result Performing Organization Address City/[facility]/ZIP Co de Phone Number HEALTHCARE LAB [address] [place] [address] * (ABNORMAL) POCT glucose meter (08/18/2025 8:17 [...] for testing. Comment 08/18/2025 8:19 PM EDT [facility] Skilled Laborer ID Lida Zimmer 08/18/2025 8:19 PM EDT [facility]ALTHCARE LAB Device ID [id number] 08/18/2025 8:19 PM EDT [facility] LAB Specimen Type POC Capillary 08/18/2025 8:19 PM EDT [facility] Blood Capillary blood specimen / Unknown 08/18/2025 8:17 PM EDT 08/18/2025 8:19 PM EDT Sushma Meza MD LAB POINT OF CARE TE ST DOCKED DEVICE UNSOLICITED RESULTS Final Result Performing Organization Address City/State/[facility] Co de Phone Number [facility] [address] [place] [address] * (ABNORMAL) POCT glucose meter (08/18/2025 4:26 PM EDT) [facility] POCT Glucose 404(H) 74 - 99 mg/dL [...] for testing. Comment 08/18/2025 4:28 PM EDT [facility] Skilled Laborer ID Nargis Hou 08/18/20 4:28 PM EDT [facility] Device ID [id number] 08/18/2025 4:28 PM EDT [facility]ALTH[facility] LAB Specimen Type POC Capillary 08/18/2025 4:28 PM EDT [facility] LAB Blood Capillary blood specimen / Unknown 08/18/2025 4:26 PM EDT 08/18/2025 4:28 PM EDT us Sushma Meza MD LAB POINT OF CARE TE ST DOCKED DEVICE UNSOLICITED RESULTS Final Result Performing Organization Address City/[facility]/ZIP Co de Phone Number [facility] [address] [place] [address] * Protein, Random, Urine with Creatinine (08/18/2025 4:15 PM EDT) Protein, Urine 36 mg/dL 08/18/2025 4:49 PM EDT [facility] Creatinine, Urine 126 mg/dL 08/18/2025 4:49 PM EDT [facility] Protein/Creati nine Ratio 0.3 mg/mg Creat 08/18/2025 4:49 PM EDT [facility] Urine Urine specimen obtained by clean catch procedure / Unknown Non-blood Collection / Unknown 08/18/2025 4:15 PM EDT 08/18/2025 4:23 PM EDT us Sushma Meza MD LAB URINE ORDERABLES Final R esult Performing Organization Address City/[facility]/ZIP Co de Phone Number [facility] [address] [place] [address] * (ABNORMAL) Protime-INR (08/18/2025 7:32 AM EDT) Prothrombin Time 23.5(H) 12.0 - 14.3 sec 08/18/2025 7:57 AM EDT [facility] INR 2.1(H) 0.9 - 1.1 08/18/2025 7:57 AM EDT [facility] Blood Venous blood specimen / Unknown Venipuncture / Unknown 08/18/2025 7:32 AM EDT 08/18/2025 7:44 AM EDT Narrative [facility] - 08/18/2025 7:57 AM EDT OPTIMAL INR RANGES FOR PATIENT ON ORAL ANTICOAGULANT THERAPY Prevention of venous thromboembolism INR 2.0 to 3.0 In patients with heart disease: Atrial fibrillation INR 2.0 to 3.0 Valvular heart disease INR 2.0 to 3.0 Tissue heart valves INR 2.0 to 3.0 Mechanical prosthetic valves INR 2.5 to 3.5 Prevention of recurrent SD INR 2.5 to 3.5 us Alvarez Brice MD LAB BLOOD ORDERABLES Final Result Performing Organization Address [facility] Co de Phone Number [facility] [address] [place] [address] * EKG now - STAT (adult) (08/18/2025 6:18 AM EDT) EKG DIAGNOSIS CLASS Borderline Abnormal MUSE ECG Ventricular Rate 46 BPM MUSE ECG Atrial Rate 46 BPM MUSE ECG AL Interval 132 ms MUSE ECG QRSD Interval 92 ms MUSE ECG QT Interval 536 ms MUSE ECG QTC Interval 469 ms MUSE ECG P [place] 45 degrees MUSE ECG R [place] -25 degrees MUSE ECG T Wave [place] 13 degrees MUSE ECG Diagnosis Sinus bradycardia MUSE ECG Diagnosis Low voltage QRS MUSE ECG Diagnosis Borderline ECG MUSE ECG Diagnosis MUSE ECG Diagnosis Confirmed by Artemio Arora ([id number]) on 08/18/2025 1:42:50 PM MUSE ECG 08/18/2025 6:18 AM EDT 08/18/2025 1:42 PM EDT us Alvarez Brice MD ECG ORDERABLES Final Resul t Performing Organization Address [facility] Co de Phone Number MUSE ECG * Osmolality (08/18/2025 6:11 AM EDT) Osmolality, Serum 297 280 - 301 mOsm/Kg 08/18/2025 5:06 PM EDT [facility] Blood Venous blood specimen / Unknown Venipuncture / Unknown 08/18/2025 6:11 AM EDT 08/18/2025 6:20 AM EDT us Sushma Meza MD LAB BLOOD ORDERABLES Final R esult Performing Organization Address [facility] Co de Phone Number [facility] [address] [place] [address] * (ABNORMAL) Blood gas panel, venous (08/18/2025 6:11 AM EDT) pH, Venous 7.41 7.32 - 7.43 LAB HEMATOLOGY METHOD 08/18/2025 6:31 AM EDT [facility] pCO2, Venous 35(L) 37 - 52 mmHg LAB HEMATOLOGY METHOD 08/18/2025 6:31 AM EDT [facility] pO2, Venous 25 25 - 40 mmHg LAB HEMATOLOGY METHOD 08/18/2025 6:31 AM EDT [facility] SO2, Measured, Venous 39(L) 65 - 80 % LAB HEMATOLOGY METHOD 08/18/2025 6:31 AM EDT [facility] Base Excess, Venous -2.0 -2.0 - 3.0 mmol/L LAB HEMATOLOGY METHOD 08/18/2025 6:31 AM EDT [facility] Bicarbonate, Calculated, Venous 22 22 - 26 mmol/L LAB HEMATOLOGY METHOD 08/18/2025 6:31 AM EDT [facility] Hematocrit, Whole Blood 27.2(L) 34.0 - 45.0 % LAB HEMATOLOGY METHOD 08/18/2025 6:31 AM EDT [facility] Sodium, Whole Blood 138 136 - 145 mmol/L LAB HEMATOLOGY METHOD 08/18/2025 6:31 AM EDT [facility] Potassium, Whole Blood 3.4(L) 3.6 - 4.9 mmol/L LAB HEMATOLOGY METHOD 08/18/2025 6:31 AM EDT [facility] Chloride, Whole Blood 105 97 - 107 mmol/L LAB HEMATOLOGY METHOD 08/18/2025 6:31 AM EDT [facility] Glucose, Whole Blood 193(H) 74 - 99 mg/dL LAB HEMATOLOGY METHOD 08/18/2025 6:31 AM EDT [facility] Lactate, Venous, Whole Blood 2.1 0.5 - 2.2 mmol/L LAB HEMATOLOGY METHOD 08/18/2025 6:31 AM EDT [facility] Ionized Calcium, Whole Blood 3.9(L) 4.6 - 5.1 mg/dL LAB HEMATOLOGY METHOD 08/18/2025 6:31 AM EDT [facility] Blood Venous blood specimen / Unknown Venipuncture / Unknown 08/18/2025 6:11 AM EDT 08/18/2025 6:27 AM EDT us Alvarez Brice MD LAB BLOOD ORDERABLES Final Result Performing Organization Address City/[facility]/ZIP Co de Phone Number [facility] [address] [place] [address] * Lipase (08/18/2025 6:11 AM EDT) Lipase, Plasma 49 19 - 63 U/L 08/18/2025 6:51 AM EDT [facility] Blood Venous blood specimen / Unknown Venipuncture / Unknown 08/18/2025 6:11 AM EDT 08/18/2025 6:20 AM EDT us Alvarez Brice MD LAB BLOOD ORDERABLES Final Result Performing Organization Address [facility] [place] [address] * (ABNORMAL) Phosphorus (08/18/2025 6:11 AM EDT) Phosphorus, Plasma 4.7(H) 2.5 - 4.5 mg/dL 08/18/2025 6:51 AM EDT [facility] Blood Venous blood specimen / Unknown Venipuncture / Unknown 08/18/2025 6:11 AM EDT 08/18/2025 6:20 AM EDT us Alvarez Brice MD LAB BLOOD ORDERABLES Final Result Performing Organization Address City/[facility]/ZIP Co de Phone Number [facility] [address] [place] [address] * (ABNORMAL) Magnesium (08/18/2025 6:11 AM EDT) Magnesium, Plasma 1.7(L) 1.9 - 2.4 mg/dL 08/18/2025 6:51 AM EDT [facility] Blood Venous blood specimen / Unknown Venipuncture / Unknown 08/18/2025 6:11 AM EDT 08/18/2025 6:20 AM EDT us Alvarez Brice MD LAB BLOOD ORDERABLES Final Result [facility] [address] [place] [id number] * (ABNORMAL) CMP (08/18/2025 6:11 AM EDT) Glucose, Plasma 203(H) 74 - 99 mg/dL 08/18/2025 6:51 AM EDT [facility] BUN, Plasma 41(H) 8 - 23 mg/dL 08/18/2025 6:51 AM EDT [facility] Creatinine, Plasma 2.67(H) 0.60 - 1.10 mg/dL 08/18/2025 6:51 AM EDT [facility] BUN/Creatinine Ratio 15 08/18/2025 6:51 AM EDT [facility] Sodium, Plasma 135(L) 136 - 145 mmol/L 08/18/2025 6:51 AM EDT [facility] Potassium, Plasma 4.1 3.6 - 4.9 mmol/L 08/18/2025 6:51 AM EDT [facility] Chloride, Plasma 101 97 - 107 mmol/L 08/18/2025 6:51 AM EDT [facility] CO2, Plasma 19(L) 22 - 29 mmol/L 08/18/2025 6:51 AM EDT [facility] Anion Gap 15 6 - 16 mmol/L 08/18/2025 6:51 AM EDT [facility] Total Calcium, Plasma 7.8(L) 8.9 - 10.2 mg/dL 08/18/2025 6:51 AM EDT [facility] Total Protein 6.2(L) 6.3 - 7.9 g/dL 08/18/2025 6:51 AM EDT [facility] Albumin, Plasma 3.2(L) 3.5 - 5.2 g/dL 08/18/2025 6:51 AM EDT [facility] AST, Plasma 45(H) 10 - 35 U/L 08/18/2025 6:51 AM EDT [facility] Comment:Hemolyzed, result ma y be falsely increased. ALT, Plasma 17 10 - 35 U/L 08/18/2025 6:51 AM EDT [facility] Alkaline Phosphatase, Plasma 154(H) 46 - 142 U/L 08/18/2025 6:51 AM EDT [facility] Total Bilirubin, Plasma 3.3(H) 0.2 - 1.1 mg/dL 08/18/2025 6:51 AM EDT [facility] eGFRcr 19.5 mL/min/1.7 3m*2 08/18/2025 6:51 AM EDT [facility] Comment:Reported eGFRcr in m L/min/1.73m2 is based the CKD-EPI 2020 equation that does not use a race coefficient. Blood Venous blood specimen / Unknown Venipuncture / Unknown 08/18/2025 6:11 AM EDT 08/18/2025 6:20 AM EDT Alvarez Brice MD LAB BLOOD ORDERABLES Final Result [facility] [address] [place] [address] * (ABNORMAL) PT-INR (08/18/2025 6:11 AM EDT) Prothrombin Time >120.0(H) 12.0 - 14.3 sec 08/18/2025 6:57 AM EDT [facility] INR >15.5(HH) 0.9 - 1.1 08/18/2025 6:57 AM EDT [facility] Blood Venous blood specimen / Unknown Venipuncture / Unknown 08/18/2025 6:11 AM EDT 08/18/2025 6:16 AM EDT Narrative [facility] - 08/18/2025 6:57 AM EDT OPTIMAL INR RANGES FOR PATIENT ON ORAL ANTICOAGULANT THERAPY Prevention of venous thromboembolism INR 2.0 to 3.0 In patients with heart disease: Atrial fibrillation INR 2.0 to 3.0 Valvular heart disease INR 2.0 to 3.0 Tissue heart valves INR 2.0 to 3.0 Mechanical prosthetic valves INR 2.5 to 3.5 Prevention of recurrent SD INR 2.5 to 3.5 cltck Alvarez Brice MD LAB BLOOD ORDERABLES Final Result [facility] [address] [place] [address] * (ABNORMAL) CBC w/diff (08/18/2025 6:11 AM EDT) WBC Count 3.25(L) 3.70 - 10.30 10*3/uL LAB HEMATOLOGY METHOD 08/18/2025 8:54 AM EDT [facility] RBC Count 3.00(L) 3.90 - 5.20 10*6/uL LAB HEMATOLOGY METHOD 08/18/2025 8:54 AM EDT [facility] HGB 9.6(L) 11.2 - 15.7 g/dL LAB HEMATOLOGY METHOD 08/18/2025 8:54 AM EDT [facility] HCT 27.3(L) 34.0 - 45.0 % LAB HEMATOLOGY METHOD 08/18/2025 8:54 AM EDT [facility] Platelet Count 71(L) 155 - 369 10*3/uL LAB HEMATOLOGY METHOD 08/18/2025 8:54 AM EDT [facility] MCV 91 79 - 98 fL LAB HEMATOLOGY METHOD 08/18/2025 8:54 AM EDT [facility] MCH 32.0 26.0 - 32.0 pg LAB HEMATOLOGY METHOD 08/18/2025 8:54 AM EDT [facility] MCHC 35.2 30.7 - 35.5 g/dL LAB HEMATOLOGY METHOD 08/18/2025 8:54 AM EDT [facility] RDW 17.7(H) 11.5 - 14.5 % LAB HEMATOLOGY METHOD 08/18/2025 8:54 AM EDT [facility] MPV 11.6 8.8 - 12.5 fL LAB HEMATOLOGY METHOD 08/18/2025 8:54 AM EDT [facility] nRBC 0.0 <=0.0 per 100 WBCs LAB HEMATOLOGY METHOD 08/18/2025 8:54 AM EDT [facility] Differential Type Automated LAB HEMATOLOGY METHOD 08/18/2025 8:54 AM EDT [facility] Neutrophils % 67 % LAB HEMATOLOGY METHOD 08/18/2025 8:54 AM EDT [facility] Lymphocytes % 16 % LAB HEMATOLOGY METHOD 08/18/2025 8:54 AM EDT [facility] Monocytes % 11 % LAB HEMATOLOGY METHOD 08/18/2025 8:54 AM EDT [facility] Eosinophils % 5 % LAB HEMATOLOGY METHOD 08/18/2025 8:54 AM EDT [facility] Basophils % 1 % LAB HEMATOLOGY METHOD 08/18/2025 8:54 AM EDT [facility] Immature Granulocytes % 0 % LAB HEMATOLOGY METHOD 08/18/2025 8:54 AM EDT [facility] Neutrophils Absolute 2.14 1.60 - 6.10 10*3/uL LAB HEMATOLOGY METHOD 08/18/2025 8:54 AM EDT [facility] Lymphocytes Absolute 0.53(L) 1.20 - 3.90 10*3/uL LAB HEMATOLOGY METHOD 08/18/2025 8:54 AM EDT [facility] Monocytes Absolute 0.37 0.30 - 0.90 10*3/uL LAB HEMATOLOGY METHOD 08/18/2025 8:54 AM EDT [facility] Eosinophils Absolute 0.16 0.00 - 0.50 10*3/uL LAB HEMATOLOGY METHOD 08/18/2025 8:54 AM EDT [facility] Basophils Absolute 0.04 0.00 - 0.10 10*3/uL LAB HEMATOLOGY METHOD 08/18/2025 8:54 AM EDT [facility] Immature Granulocytes Absolute 0.01 0.00 - 0.06 10*3/uL LAB HEMATOLOGY METHOD 08/18/2025 8:54 AM EDT [facility] Blood Venous blood specimen / Unknown Venipuncture / Unknown 08/18/2025 6:11 AM EDT 08/18/2025 6:16 AM EDT Narrative [facility] - 08/18/2025 8:54 AM EDT Therapeutic decision making should be based on absolute values, rather than percentages. us Alvarez Brice MD LAB BLOOD ORDERABLES Final Result [facility] [address] [place] [address] documented in this encounter Visit Diagnoses Diagnosis [...] times daily with meals, First dose on Tue08/18/25 at 1730, Until Discontinued, Routine Given 08/20/2025 [...] on Tue08/19/25 at 0900, Until Discontinued, Routine 0913 (Given - Provider: Eryn Muñoz) calcitriol (Rocaltrol) capsule 0.25 mcg 0.25 mcg, Oral, Daily, First dose on 08/18/25 at 1600, Until Discontinued, Routine 1544 (Given - Provider: Nargis Hou RN) 0913 (Given - Provider: Eryn Muñoz) 0808 (Given - Provider: Laverne Booth RN) calcium carbonate (Tums) chewable tablet 750 mg 750 mg, Oral, Daily, First dose on 08/18/25 at 1600, Until Discontinued 1546 (Given - Provider: Nargis Hou RN) 0913 (Given - Provider: Eryn Muñoz) 0808 (Given - Provider: Laverne Booth RN) cefTRIAXone [...] 1544 (Given - Provider: Nargis Hou RN) 0913 (Given - Provider: Eryn Muñoz) 0808 (Given - Provider: Laverne Booth RN) cholecalciferol (Vitamin D-3) tablet 1,000 Units 1,000 Units, Oral, Daily, First dose on 08/18/25 at 1600, Until Discontinued, Routine 1545 (Given - Provider: Nargis Hou RN) 0913 (Given - Provider: Eryn Muñoz) 0808 (Given - Provider: Laverne Booth RN) ciprofloxacin (Cipro) tablet 500 mg (CANCELED) 500 mg, Oral, Daily, First dose on Tue08/18/25 at 1600, Until Discontinued, Routine 1544 (Given - Provider: Nargis Hou RN) 0913 (Given - Provider: Eryn Muñoz) heparin (porcine) injection 5,000 Units (CANCELED) 5,000 Units, Subcutaneous, Every 8 hours scheduled, First dose on Tue08/18/25 at 1345, Until Discontinued, Routine 1311 (Given - Provider: Nargis Hou RN) insulin glargine-yfgn 100 UNIT/ML injection 24 Units (CANCELED) 24 Units, Subcutaneous, Daily, First dose on Tue08/19/25 at 0900, Until Discontinued, Routine 09 (Given - Provider: Eryn Muñoz) insulin glargine-yfgn 100 UNIT/ML injection 24 Units 24 Units, Subcutaneous, Nightly, First dose (after last modification) on Tue08/19/25 at 2100, Until Discontinued, Routine 2022 (Given - Provider: Neyda Cosme) insulin lispro (Admelog) 100 units/mL injection - Correction - Resistant Dose 0-10 Units, Subcutaneous, 3 times daily with meals, First dose on 08/18/25 at 1730, Until Discontinued, Routine 1711 (Given - Provider: Nargis Hou RN) 0911 (Given - Provider: Eryn Muñoz)1157 (Given - Provider: Eryn Muñoz)1711 (Given - Provider: Eryn Muñoz) 0809 (Given - Provider: Laverne Booth, PARK)1231 (Given - Provider: Laverne Booth RN) insulin lispro (Admelog) injection - Correction - Nighttime Dose 0-3 Units, Subcutaneous, 2 times nightly (2100 & 0300), First dose on Tue08/18/25 at 2100, Until Discontinued, Routine 2228 (Given - Provider: Melissa Carney RN - Comment: Dr Ball wanted to see pt, then asked to recheck) 324 (Given - Provider: Melissa Carney RN)2035 (Given - Provider: Neyda Cosme) 0344 (Given - Provider: Neyda Cosme) Insulin Lispro (Admelog, HumaLOG) 100 UNIT/ML injection 3 Units (COMPLETED) 3 Units, Subcutaneous, Once, 1 dose, On Tue08/19/25 at 2130, Routine 203 (Given - Provider: Neyda Cosme) lactulose (Chronulac) 10 GM/15ML solution 20 g 20 g, Oral, 3 times daily, First dose on Tue08/18/25 at 1600, Until Discontinued, Routine 1544 (Given - Provider: Nargis Hou, PARK)213 (Given - Provider: Melissa Carney, PARK) 0912 (Given - Provider: Eryn Muñoz)161 (Given - [...] Until Discontinued 154 (Given - Provider: Nargis Hou RN) magnesium sulfate IVPB 2 g (COMPLETED) 2 g, Intravenous, Once, 1 dose, On Tue08/20/25 at 0745, Routine 0808 (New Bag - Provider: Laverne Booth, PARK) midodrine (Proamatine) tablet 15 mg 15 mg, Oral, 3 times daily, First dose on Tue08/18/25 at 1600, Until Discontinued, Routine 1545 (Given - Provider: Nargis Hou, PARK)2133 (Given [...] Oral, 2 times daily, First dose on 08/18/25 at 2100, Until Discontinued, Routine 2133 (Given - Provider: Melissa Carney, RN) 0913 (Given - Provider: Eryn Muñoz)2021 (Given - Provider: Neyda Cosme) 0808 (Given - Provider: Laverne Booth, PARK) senna (Senokot) tablet 8.6 mg 8.6 mg (1 tablet), Oral, Nightly, First dose on 08/18/25 at 2100, Until Discontinued, Routine 2134 (Given - Provider: Melissa Carney, PARK) 2021 (Given - Provider: Neyda Cosme) sodium [...] Provider: Neyda Cosme)1258 (Given - Provider: Laverne Booth, PARK) PRN Medication Order 08/18/2025 08/19/2025 08/20/2025 carboxymethylcellulose PF (Refresh Plus) 0.5 % ophthalmic solution 1 drop 1 drop, Both Eyes, As needed, Starting on 08/18/25 at 1509, Until 08/20/25 at 1715, Routine, dry eyes dextrose 10 % (D10W) bolus 125 mL(Linked Group 2) 125 mL, Intravenous, Every 15 min PRN, Starting on 08/18/25 at 1515, Until 08/20/25 at 1715, Administer over 15 Minutes, Routine, low blood sugar BG 51-89 mg/dL dextrose 10 % (D10W) bolus 250 mL(Linked Group 2) 250 mL, Intravenous, Every 15 min PRN, Starting on 08/18/25 at 1515, Until 08/20/25 at 1715, Administer over 15 Minutes, Routine, [...] 08/18/25 at 1515, Until Tue08/20/25 at 1715, Administer [...] as of this encounter 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
--- OUTSIDE RECORDS SUMMARY | 2025-08-22 08:54 | XMS_ITS | Encounter Summary ---
Author Organization [facility] Address [address] [place] [address] Care Team Providers Care Bar Turner Name Role Phone Lea Fernando Unavailable [phone] Rachel Ray PYTHON ARCHITECT Unavailable [phone] Alvarez Zimmer MD Primary Care Provider [phone] Tamera Isabel PROFESSIONAL MODEL Unavailable Unavailabl Shaniqua Centeno LPN Unavailable Unavailable Reason for Referral * Clinic-Administered Medication (Routine) - Closed Specialty Diagnoses / Procedures Referred By Contac t Referred To Contact Diagnoses Other ascites Procedures WI ABDOM PARACENTESIS DX/THER W IMAGING GUIDANCE Shaniqua Mccurdy APRN [address] [place] [address] Phone: tel: fax: [facility] [address] [place] [address] Phone: tel: fax: Referral ID Status Reason Start Date Expiration Date Visits Re quested Visits Authorized [id number] Closed 08/22/2025 02/21/2027 1 1 * Imaging (Routine) - Closed Specialty Diagnoses / Procedures Referred By Contac t Referred To Contact Radiology Diagnoses Alcoholic cirrhosis of liver with ascites Procedures US Guided Abdominal Paracentesis Marianna Gordon APRN [address] [place] [address] Phone: tel: fax: Referral ID Status Reason Start Date Expiration Date Visits Re quested Visits Authorized [id number] Closed 08/09/2025 02/08/2027 1 1 * Imaging (Routine) - Closed Specialty Diagnoses / Procedures Referred By Eder zhu Referred To Contact Radiology Diagnoses Other ascites Procedures US Guided Thoracentesis Marianna Gordon APRN [address] [place] [address] Phone: tel: fax: Referral ID Status Reason Start Date Expiration Date Visits Re quested Visits Authorized [id number] Closed 08/09/2025 02/08/2027 1 1 Reason for Visit * Imaging (Routine) - Closed Specialty Diagnoses / Procedures Referred By Eder zhu Referred To Contact Radiology Diagnoses Other ascites Procedures US Guided Thoracentesis Marianna Gordon APRN [address] [place] [address] Phone: tel: fax: Referral ID Status Reason Start Date Expiration Date Visits Re quested Visits Authorized [id number] Closed 08/09/2025 02/08/2027 1 1 Encounter Details Date Type Department Care Team (Latest Contact Info) Description 08/22/2025 8:54 AM EDT - 08/22/2025 12:19 PM EDT Hospital Encounter [facility] Interventional Radiology [address] [place] [address] Candy Ness FISH LIVER SORTER Other ascites; Alcoholic cirrhosis of liver with ascites Discharge Disposition: Home or Self Care [...] do you attend [facility] or jew[facility] services? Patient unable to answer [...] Never 06/25/2025 [facility] [...] living in a fpc (including now)? No 08/19/2025 [facility] Utilities Answer Date Recorded In the past 12 months has th dineout, gas, oil, or water company threatened to [...] drink first t kennedy in the morning (EYE-BENEFITS ANALYST) to steady your nerves or to [...] Sign Reading Time Taken Comments Blood Pressure 117/57 08/22/2025 12:11 PM EDT Pulse 83 08/22/2025 12:12 PM EDT Temperature 36.6 C (97.9 F) 08/22/2025 12:12 PM EDT Respiratory Rate 14 08/22/2025 12:12 PM EDT Oxygen Saturation 94% 08/22/2025 12:12 PM EDT Inhaled Oxygen Concentration - - Weight 89.9 kg (198 lb 3.1 oz) 08/22/2025 10:52 AM EDT Height 165.1 cm (5' 5 ) 08/22/2025 10:52 AM EDT Body Mass Index 32.98 08/22/2025 10:52 AM EDT documented in this encounter Medications [...] 1 03/01/2025 ergocalciferol (Vitamin D-2) 1.25 MG (86169 UT) capsuleIndication s:Vitamin D deficiency Take 1 [...] Post-Procedure Note - Shaniqua Mccurdy APRN - 08/22/2025 11:15 AM EDT Vascular and Interventional Radiology [...] Post-Procedure Note - Shaniqua Mccurdy APRN - 08/22/2025 11:15 AM EDT Vascular and Interventional Radiology [...] H&P Note - Shaniqua Mccurdy APRN - 08/22/2025 11:15 AM EDT Reviewed previous H/P, no significant interval change. Here for paracentesis and thoracentesis. Source Note - Shaniqua Mccudry APRN - 08/08/2025 11:15 AM EDT 08/08/25 [...] is no recent study available for direct [id number] comparison. Assessment & Plan: Decompensated cirrhosis, MASH [...] the care of this patient. Shaniqua Mccurdy, PYTHON ARCHITECT Interventional Radiology [phone] [1] Past Medical History: Diagnosis Date ADHD (attention deficit hyperactivity disorder) Allergic Anxiety disorder, unspecified Anxiety Bleeding gums Blood in urine Cataract Chronic kidney disease Cirrhosis (CMS/HCC) Colon cancer screening 09/20/2019 Added automatically from request for surgery [id number] Coronary artery disease Depression 1996 Diabetes mellitus [...] 1979 BLADDER SURGERY N/A Bladder surgery from [facility] BREAST BIOPSY 2011 BREAST SURGERY 2010 BUNIONECTOMY Right CATARACT EXTRACTION Bilateral 2016 CHOLECYSTECTOMY 1979 ESOPHAGOGASTRODUODENOSCOPY HYSTERECTOMY N/A Hysterectomy from [facility] KNEE SURGERY Bilateral ORAL SURGERY N/A Oral surgery from [facility] OTHER SURGICAL HISTORY 2015 ROOT CANAL WISDOM [...] Rfl: 1 ergocalciferol (Vitamin D-2) 1.25 MG (32647 UT) capsule, Take 1 capsule by mouth [...] Description 09/17/2025 9:45 AM EDT Clinical Support [facility] [place] [address] [place] [address] 09/17/2025 10:30 AM EDT Social Work [facility] [place] [address] [facility] [place] [address] Lea Reilly, [place], [place] [id number] 09/17/2025 11:20 AM EDT Office Visit [facility] [place] [address] [facility] [address] [place] [address] Octavia Herrera, PA [address] [place] [address] 09/19/2025 10:30 AM EDT Appointment [facility] Inter[facility] Radiology [address] [place] [address] 09/19/2025 11:30 AM EDT Appointment [facility] Inter[facility]iology [address] [place] [address] 09/26/2025 7:30 AM EST Appointment [facility]iology [address] [place] [address] 09/26/2025 8:30 AM EST Appointment [facility] [address] [place] [address] 10/01/2025 9:00 AM EST Office Visit [facility] [address] [place] [address], [address] [place] [address] Lillie Pritchard MD [address] [id number] 10/03/2025 12:30 PM EST Appointment [facility] Inter[facility] Radiology [address] [place] [address] 10/03/2025 1:30 PM EST Appointment [facility] Inter[facility] Radiology [address] [place] [address] 12/20/2025 11:00 AM EST Office Visit [facility] [address] [place] [address] Miranda Hobson, PYTHON ARCHITECT [address] [place] [address] documented as of this encounter Procedures Procedure Name Priority Date/Time Associated Diagnosis Comments XR CHEST 1 VIEW STAT 08/22/2025 12:30 PM EDT US GUIDED ABDOMINAL PARACENTESIS Routine 08/22/2025 12:05 PM EDT Alcoholic cirrhosis of liver with ascites US GUIDED THORACENTESIS Routine 08/22/20 12:05 PM EDT Other ascites BODY FLUID CELL COUNT W/ MANUAL DIFFERENTIAL Routine 08/22/2025 11:06 AM EDT BODY FLUID, CYTOSPIN, PATHOLOGIST INTERPRETATION Routine 08/22/2025 11:06 AM EDT TOTAL PROTEIN, PERITONEAL FLUID Routine 08/22/2025 11:06 AM EDT GLUCOSE, PERITONEAL FLUID Routine 08/22/2025 11:06 AM EDT documented in this encounter Results * XR Chest 1 View (08/22/2025 12:30 PM EDT) Anatomical Region Laterality Modality Chest Digital Radiogra phy Impressions 08/22/2025 1:19 PM EDT Right lower lobe atelectasis with volume loss. No significant pneumothorax is identified although a tiny right apical pneumothorax may be present. CRITICAL RESULT: No. COMMUNICATION: Per this written report. Drafted by George Winn MD on 08/22/2025 1:17 PM Final report signed by George Winn MD on 08/22/2025 1:19 PM Narrative 08/22/2025 1:19 PM EDT CLINICAL INDICATION: s/p thora TECHNIQUE: XR CHEST 1 VIEW COMPARISON: Chest radiograph dated 08/19/2025. CT chest dated 08/17/2025 FINDINGS: Interval development of mild right lower lobe pulmonary opacities likely representing atelectasis given the volume loss. Heart and mediastinal contours are within normal limits. No significant pneumothorax. Tiny right pleural effusion. Osteoporosis. Degenerative changes without acute bone abnormality identified. Procedure Note George Winn MD - 08/22/2025 CLINICAL INDICATION: s/p thora TECHNIQUE: XR CHEST 1 VIEW COMPARISON: Chest radiograph dated 08/19/2025. CT chest dated 08/17/2025 FINDINGS: Interval development of mild right lower lobe pulmonary opacities likelyrepresenting atelectasis given the volume loss. Heart and mediastinalcontours are within normal limits. No significant pneumothorax. Tiny rightpleural effusion. Osteoporosis. Degenerative changes without acute boneabnormality identified. IMPRESSION: Right lower lobe atelectasis with volume loss. No significant pneumothoraxis identified although a tiny right apical pneumothorax may be present. CRITICAL RESULT: No. COMMUNICATION: Per this written report. Drafted by George Winn MD on 08/22/2025 1:17 PM Final report signed by George Winn MD on 08/22/2025 1:19 PM us Shaniqua Mccurdy PYTHON ARCHITECT IMG XR PROCEDURES Final Resu lt * US Guided Abdominal Paracentesis (08/22/2025 12:05 PM EDT) Anatomical Region Laterality Modality Abdomen Ultrasound Impressions 08/22/2025 5:40 PM EDT Technically successful US-guided paracentesis. A total of 3.3 liters of clear yellow fluid was removed. A sample of the fluid was sent for laboratory analysis. Administered Albumin 37.5 g IV once post procedure CRITICAL RESULT: No. COMMUNICATION: Per this written report. Preliminary report signed by SOLANGE Singleton on 08/22/2025 1:24 PM By electronically signing this report, I, the attending physician, attest that I was not present for the procedure(s) but agree with the final edited report. Drafted by SOLANGE Singleton on 08/22/2025 1:23 PM Final report signed by Javier Oscar MD on 08/22/2025 5:40 PM Narrative 08/22/2025 5:40 PM EDT CLINICAL INDICATION: 65 year old female with decompensated cirrhosis complicated by ascites and hepatic hydrothorax. TECHNIQUE: Location Analyst: Shaniqua Mccurdy APRN Secondary Hiv Cts Specialist: None. Rad Dose: NA Medications: Continuous physiologic monitoring provided by a qualified healthcare professional. Administered: 1% Lidocaine SQ. Antibiotics: NA Time out: 1102 Procedure: After discussion of risks and benefits, [...] permanent storage in PACS. A total of 3.3 liters of clear yellow fluid was removed. The centesis catheter was removed and occlusive dressing applied. The patient tolerated the procedure well. The patient left the IR suite in stable condition. COMPARISON: None. FINDINGS: Moderate volume ascites. COMPLICATION: No. Procedure Note Javier Oscar MD - 08/22/2025 CLINICAL INDICATION: 65 year old female with decompensated cirrhosis complicated by ascites andhepatic hydrothorax. TECHNIQUE: Location Analyst: Shaniqua Mccurdy APRN Secondary Hiv Cts Specialist: None. Rad Dose: NA Medications: Continuous physiologic monitoring provided by a qualifiedhealthcare professional. Administered: 1% Lidocaine SQ. Antibiotics: NA Time out: 1102 Procedure: After discussion of risks and benefits, [...] to permanentstorage in PACS. A total of 3.3 liters of clear yellow fluid was removed.The centesis catheter was removed and occlusive dressing applied. The patient tolerated the procedure well. The patient left the IR suitein stable condition. COMPARISON: None. FINDINGS: Moderate volume ascites. COMPLICATION: No. IMPRESSION: Technically successful US-guided paracentesis. A total of 3.3 liters of clear yellow fluid was removed. A sample of the fluid was sent for laboratory analysis. Administered Albumin 37.5 g IV once post procedure CRITICAL RESULT: No. COMMUNICATION: Per this written report. Preliminary report signed by SOLANGE Singleton on 08/22/2025 1:24 PM By electronically signing this report, I, the attending physician, attestthat I was not present for the procedure(s) but agree with the finaledited report. Drafted by SOLANGE Singleton on 08/22/2025 1:23 PM Final report signed by Javier Oscar MD on 08/22/2025 5:40 PM us Marianna Gordon PYTHON ARCHITECT IMG US PROCEDURES Final Resu lt * US Guided Thoracentesis (08/22/2025 12:05 PM EDT) Anatomical Region Laterality Modality Chest Ultrasound Impressions 08/22/2025 5:42 PM EDT Technically successful ultrasound guided thoracentesis. A total of 1.6 L of clear yellow fluid was removed. A sample of the fluid was sent for laboratory analysis. CRITICAL RESULT: No. COMMUNICATION: Per this written report. Preliminary report signed by SOLANGE Singleton on 08/22/2025 1:25 PM By electronically signing this report, I, the attending physician, attest that I was not present for the procedure(s) but agree with the final edited report. Drafted by SOLANGE Singleton on 08/22/2025 1:24 PM Final report signed by Javier Oscar MD on 08/22/2025 5:42 PM Narrative 08/22/2025 5:42 PM EDT CLINICAL INDICATION: 65 year old female with decompensated cirrhosis complicated by ascites and hepatic hydrothorax. TECHNIQUE: Location Analyst: Shaniqua Mccurdy PYTHON ARCHITECT Secondary Hiv Cts Specialist: None. Rad Dose: NA Medications: Continuous physiologic monitoring provided by a qualified healthcare professional. Administered: 1% Lidocaine SQ Antibiotics: NA Time out: 1102 Procedure: After discussion of risks and benefits, [...] storage in PACS. A total of 1.6 L of clear yellow fluid was removed. The needle was removed and occlusive dressing applied. The patient tolerated the procedure well. The patient left the IR suite in stable condition. COMPARISON: None. FINDINGS: Large, simple, right pleural fluid. COMPLICATION: No. Procedure Note Javier Oscar MD - 08/22/2025 CLINICAL INDICATION: 65 year old female with decompensated cirrhosis complicated by ascites andhepatic hydrothorax. TECHNIQUE: Location Analyst: Shaniqua Mccurdy APRN Secondary Hiv Cts Specialist: None. Rad Dose: NA Medications: Continuous physiologic monitoring provided by a qualifiedhealthcare professional. Administered: 1% Lidocaine SQ Antibiotics: NA Time out: 1102 Procedure: After discussion of risks and benefits, [...] to permanentstorage in PACS. A total of 1.6 L of clear yellow fluid was removed. Theneedle was removed and occlusive dressing applied. The patient tolerated the procedure well. The patient left the IR suitein stable condition. COMPARISON: None. FINDINGS: Large, simple, right pleural fluid. COMPLICATION: No. IMPRESSION: Technically successful ultrasound guided thoracentesis. A total of 1.6 L of clear yellow fluid was removed. A sample of the fluid was sent for laboratory analysis. CRITICAL RESULT: No. COMMUNICATION: Per this written report. Preliminary report signed by SOLANGE Singleton on 08/22/2025 1:25 PM By electronically signing this report, I, the attending physician, attestthat I was not present for the procedure(s) but agree with the finaledited report. Drafted by SOLANGE Singleton on 08/22/2025 1:24 PM Final report signed by Javier Oscar MD on 08/22/2025 5:42 PM us Marianna Gordon APRN IMG US PROCEDURES Final Resu lt * Body fluid, cytospin, pathologist interpretation (08/22/2025 11:06 AM EDT) Specimen Type Body Fluid LAB HEMATOLOGY METHOD 08/23/2025 2:36 PM EDT [facility] Specimen Source, Body Fluid Peritoneal Fluid LAB HEMATOLOGY METHOD 08/23/2025 2:36 PM EDT [facility] Clinical Diagnosis, Body Fluid Cirrhosis, ascites LAB HEMATOLOGY METHOD 08/23/2025 2:36 PM EDT [facility] Interpretation , Body Fluid No evidence of malignancy; chronic inflammatory cells (lymphocytosis) , moderate blood A resident was involved in the service. I attest I examined the relevant preparations for the specimens and confirmed the diagnosis or interpretation. 08/23/2025 2:36 PM EDT [facility] Pathologist Signature, Body Fluid 08/23/2025 2:36 PM EDT [facility] Comment:Reviewed by: Iza Blue MD LAB CP ASR DISCLAIMER Yes 08/23/2025 2:36 PM EDT [facility] Body Fluid Peritoneal fluid / Unknown Non-blood Collection / Unknown 08/22/2025 11:06 AM EDT 08/22/2025 12:17 PM EDT us Shaniqua Mccurdy PYTHON ARCHITECT LAB BODY FLUIDS AND STOOLS O RDERABLES Final Result [facility] [address] [place] [address] * Glucose - Ascites (08/22/2025 11:06 AM EDT) Glucose, Fluid 345 mg/dL 08/22/2025 1:08 PM EDT [facility] Peritoneal Fluid Peritoneal cavity structure / Unknown Non-blood Collection / Unknown 08/22/2025 11:06 AM EDT 08/22/2025 12:17 PM EDT Narrative [facility] - 08/22/2025 1:08 PM EDT Peritoneal/Ascites No established reference interval. [...] 3) Glucose < 50 mg/dL. Shaniqua Mccurdy PYTHON ARCHITECT LAB BODY FLUIDS AND STOOLS O RDERABLES Final Result Performing Organization Address [facility] de Phone Number [facility] [address] [place] [address] * Protein - Ascites (08/22/2025 11:06 AM EDT) Total Protein, Fluid 1 g/dL 08/22/2025 1:08 PM EDT [facility] Peritoneal Fluid Peritoneal cavity structure / Unknown Non-blood Collection / Unknown 08/22/2025 11:06 AM EDT 08/22/2025 12:17 PM EDT Narrative [facility] - 08/22/2025 1:08 PM EDT This test was developed and its performance characteristics determined by [facility]. The U.S. Food and Drug Administration has not approved or cleared this test. However, FDA clearance or approval is not currently required for clinical use. The results are not intended to be used as the sole means for clinical diagnosis or patient management decisions. Shaniqua Artisams PYTHON ARCHITECT LAB BODY FLUIDS AND STOOLS O RDERABLES Final Result Performing Organization Address [facility] de Phone Number [facility] [address] [place] [address] * (ABNORMAL) Body Fluid Cell Count With Diff - Ascites (08/22/2025 11:06 AM EDT) Color, Body fluid [place] LAB HEMATOLOGY METHOD 08/22/2025 6:59 PM EDT [facility] Appearance, Body fluid Cloudy(A) LAB HEMATOLOGY METHOD 08/22/2025 6:59 PM EDT [facility] Volume, Body fluid 9.0 cc LAB HEMATOLOGY METHOD 08/22/2025 6:59 PM EDT [facility] Fluid Container Tube 2 LAB HEMATOLOGY METHOD 08/22/2025 6:59 PM EDT [facility] Red Blood Cell Count, Body fluid 8,000 uL LAB HEMATOLOGY METHOD 08/22/2025 6:59 PM EDT [facility] Total Nucleated Cell Count, Body fluid 176 uL LAB HEMATOLOGY METHOD 08/22/2025 6:59 PM EDT [facility] Neutrophils %, Body fluid 2 % LAB HEMATOLOGY METHOD 08/22/2025 6:59 PM EDT [facility] Lymphocytes %, Body fluid 91 % LAB HEMATOLOGY METHOD 08/22/2025 6:59 PM EDT [facility] Monocytes/Macro phages %, Body fluid 5 % LAB HEMATOLOGY METHOD 08/22/2025 6:59 PM EDT [facility] Eosinophils %, Body fluid 0 % LAB HEMATOLOGY METHOD 08/22/2025 6:59 PM EDT [facility] Lining/Mesothel ial Cells %, Body fluid 2 % LAB HEMATOLOGY METHOD 08/22/2025 6:59 PM EDT [facility] Neutrophils Absolute (PMN), Body fluid 4 uL LAB HEMATOLOGY METHOD 08/22/2025 6:59 PM EDT [facility] Lymphocytes Absolute, Body fluid 160 uL LAB HEMATOLOGY METHOD 08/22/2025 6:59 PM EDT [facility] Monocytes/Macro phages Absolute, Body fluid 9 uL LAB HEMATOLOGY METHOD 08/22/2025 6:59 PM EDT [facility] Eosinophils Absolute, Body fluid 0 uL LAB HEMATOLOGY METHOD 08/22/2025 6:59 PM EDT [facility] Basophils Absolute, Body fluid 0 uL LAB HEMATOLOGY METHOD 08/22/2025 6:59 PM EDT [facility] Lining/Mesothel ial Cells Absolute, Body fluid 4 uL LAB HEMATOLOGY METHOD 08/22/2025 6:59 PM EDT [facility] Basophils %, Body fluid 0 % LAB HEMATOLOGY METHOD 08/22/2025 6:59 PM EDT [facility] Body Fluid Peritoneal fluid / Unknown Non-blood Collection / Unknown 08/22/2025 11:06 AM EDT 08/22/2025 12:17 PM EDT us Shaniqua Mccurdy PYTHON ARCHITECT LAB BODY FLUIDS AND STOOLS ORDERABLES NO SPECIMEN TYPE/SOURCE Final Result [facility] [address] [place] [address] documented in this encounter Visit Diagnoses Diagnosis Other ascites Alcoholic cirrhosis of liver with ascites documented in this encounter Administered Medications Inactive Administered Medications - up to 3 most recent administrations Medication Order MAR Action Action Date Dose Rate Site albumin human 25 % infusion 37.5 g 37.5 g, Intravenous, Once as needed, 1 dose, Starting on Sarahi 08/22/25 at 0945, Until Sarahi 08/22/25 at 1145, Routine, Intraprocedure, For 5-6.9 L drained New Bag 08/22/2025 11:45 AM EDT 37.5 g lidocaine (Xylocaine) 1 % injection Intradermal, As needed, Starting on Sarahi 08/22/25 at 1104, Until Sarahi 08/22/25 at 1146, Routine, Intraprocedure Given 08/22/2025 11:46 AM EDT 10 mL Given 08/22/2025 11:04 AM EDT 10 mL documented in this encounter Additional Health Concerns Assessment Noted Time PHQ-9 Depression Total Score: 6 06/11/20 10:59 AM EDT A fall risk assessment has been complete d for the patient 06/25/2025 12:59 PM EDT A Body Mass Index follow-up plan has been documented for the patient 08/20/2025 11:26 AM EDT documented as of this encounter Care Teams Bar Turner Relationship Specialty Start Date End Date Alvarez Zimmer MD [address] [place] [address] PCP - General Family Medicine 12/07/24 09/02/25 Lea Fernando [address] [place] [address] Case Hardener Endocrinology 08/29/24 Rachel Ray APRN [address] [place] [address] Nurse Practitioner Gastroenterology 09/24/24 Tamera Isabel LPN VALUE-BASED TRANSFORMATION PROGRAM Licensed Practical Nurse 05/29/25 Shaniqua Trevino LPN TCM Nurse 08/21/25 documented as of this encounter
--- OUTSIDE RECORDS SUMMARY | 2025-08-22 12:20 | XMS_ITS | Encounter Summary ---
Author Organization [facility] Address [address] [place] [address] Care Team Providers Care Supervisor Filling And Packing Name Role Phone Lea Fernando Unavailable [phone] Rachel Ray WEDDING FLORIST Unavailable [phone] Alvarez Zimmer MD Primary Care Provider Tamera Isabel LAW INSTRUCTOR Unavailable UnavailShaniqua Lomeli LAW INSTRUCTOR Unavailable Unavailable Encounter Details Date Type Department Care Team (Latest Contact Info) Description 08/22/2025 12:20 PM EDT - 08/22/2025 11:59 PM EDT Hospital Encounter [facility] Radiology [address] [place] [address] Discharge Disposition: Home or Self Care Social [...] week 01/10/2025 How often do you attend [facility] or mandaeism services? Patient unable to answer 01/10/2025 Do you belong to any clubs o r organizations such as restoration groups, unions, [employer] or athletic groups, or school groups? Patient [...] one occasion? Never 06/25/2025 [facility] - Occupational Stress Questionnaire Answer [...] time in the past 12 m [facility], were you homeless or living in a assisted (including now)? No 08/19/2025 [facility] Utilities Answer Date Recorded In the [...] drink first t kennedy in the morning (EYE-COMPUTER SCIENCE TEACHER) to steady your nerves or to [...] 1 03/01/2025 ergocalciferol (Vitamin D-2) 1.25 MG (85568 UT) capsuleIndication s:Vitamin D deficiency Take 1 [...] nausea or vomiting. 60 tablet 2 07/09/2025 documented as of this encounter Plan of Treatment Upcoming Encounters Date Type Department Care Team (Late st Contact Info) Description 09/17/2025 9:45 AM EDT Clinical Support [facility] [place] [address] [facility] [address] [place] [address] 09/17/2025 10:30 AM EDT Social Work [facility] [place] [address] [facility] [address] [place] [address] Lea Reilly, [place] [address] 09/17/2025 11:20 AM EDT Office Visit [facility] [place] [address] [facility] [address] [place] [address] cOtavia Herrera, MARIA GUADALUPE [address] [place] [address] 09/19/2025 10:30 AM EDT Appointment [facility] Interventional Radiology [address] [place] [address] 09/19/2025 11:30 AM EDT Appointment [facility] Interventional Radiology [address] [place] [address] 09/26/2025 7:30 AM EST Appointment [facility] Interventional Radiology [address] [place] [address] 09/26/2025 8:30 AM EST Appointment [facility] Interventional Radiology [address] [place] [address] 10/01/2025 9:00 AM EST Office Visit [facility] [address] [facility], [address] [place] [address] Lillie Pritchard MD [address] [place], [place] [phone] 10/03/2025 12:30 PM EST Appointment [facility] Interventional Radiology [address] [place] [address] 10/03/2025 1:30 PM EST Appointment [facility] Interventional Radiology [address] [place] [address] 12/20/2025 11:00 AM EST Office Visit [facility] Endocrinology [address] [place] [address] Miranda Hobson, WEDDING FLORIST [address] [facility] [address] [place] [address] documented as of this encounter Procedures Procedure Name Priority Date/Time Associated Diagnosis Comments XR CHEST 1 VIEW STAT 08/22/2025 12:30 PM EDT documented in this encounter Results [...] George Winn MD on 08/22/2025 1:19 PM Shaniqua Mccurdy APRN IMG XR PROCEDURES Final Resu lt documented [...] as of this encounter Care Teams Supervisor Filling And Packing Relationship Specialty Start Date End Date Alvarez Zimmer MD [address] [place] [address] PCP - General Family Medicine 12/07/24 09/02/25 Lea Fernando [address] [address] Able Bodied Watchman Endocrinology 08/29/24 Rachel Ray APRN [address] [place] [address] Nurse Practitioner Gastroenterology 09/24/24 Tamera Isabel LPN VALUE-BASED TRANSFORMATION PROGRAM Licensed Practical Nurse 05/29/25 Shaniqua Trevino LPN TCM Nurse 08/21/25 documented as of this encounter
--- OUTSIDE RECORDS SUMMARY | 2025-08-26 13:00 | XMS_ITS | Encounter Summary ---
Author Organization [facility] Address [address] [place] [address] Care Team Providers Care Combine Inspector Name Role Phone Lea Fernando Unavailable [phone] Rachel Ray RECEPTION CLERK Unavailable [phone] Alvarez Zimmer MD Primary Care Provider [phone] Tamera Isabel SPRINKLING SYSTEM IRRIGATOR Unavailable Unavailabl Shaniqua Centeno LPN Unavailable Unavailable Reason for Referral * Consultation (Routine) - Authorized Specialty Diagnoses / Procedures Referred By Eder zhu Referred To Contact Diagnoses Type 2 diabetes mellitus with hyperglycemia, with long-term current use of insulin Miranda Hobson APRN Dea Mcallister [address] [address] Phone: tel: fax: Referral ID Status Reason Start Date Expiration Date V isits Requested Visits Authorized [id number] Authorized 08/26/2025 02/25/2027 1 1 Reason for Visit * Reason Comments Diabetes * Consultation (Routine) - Closed Specialty Diagnoses / Procedures Referred By Contherbert t Referred To Contact Diagnoses Type 2 diabetes mellitus with hyperglycemia, with long-term current use of insulin Enmanuel Wetzel MD [address] [place] [address] Phone: tel: fax: Referral ID Status Reason Start Date Expiration Date Visits Re quested Visits Authorized [id number] Closed 05/17/2025 11/16/2026 1 1 Encounter Details Date Type Department Care Team (Late st Contact Info) Description 08/26/2025 1:00 PM EDT [facility] [address] [place] [address] Miranda Hobson, RECEPTION CLERK 2[address] [facility] 125 [place] [address] Type 2 diabetes mellitus with hyperglycemia, with long-term current use of insulin (Primary Dx); Chronic kidney disease, stage 3b (CMS/HCC); Hypoglycemia due to insulin; Obesity (BMI 30-39.9) Social History Tobacco Use Types Packs/Day Years [...] often do you attend [facility] or church services? Patient unable to answer [...] drinks on one occasion? Never 06/25/2025 [facility] - Occupational Stress Questionnaire [...] in a retirement (including now)? No 08/19/2025 [facility] Utilities Answer Date Recorded In the past 12 months has [facility] [employer], gas, oil, or water [employer] threatened to shut off services in your [...] drink first t kennedy in the morning (EYE-ENGINE WIPER) to steady your nerves or to get [...] Sign Reading Time Taken Comments Blood Pressure 98/58 08/26/2025 12:37 PM EDT Pulse 74 08/26/2025 12:37 PM EDT Temperature - - Respiratory Rate - - Oxygen Saturation - - Inhaled Oxygen Concentration - - Weight 86 kg (189 lb 9.5 oz) 08/26/2025 12:37 PM EDT Height 165.1 cm (5' 5 ) 08/26/2025 12:37 PM EDT Body Mass Index 31.55 08/26/2025 12:37 PM EDT documented in this encounter Miscellaneous Notes * Patient Instructions - Miranda Hobson APRN - 08/26/2025 1:00 PM EDT Lab Results Component Value Date HGBA1C 6.4 08/26/2025 Please call the diabetes education team with any questions or concerns at [phone]. * Progress Notes - Miranda Hobson APRN - 08/26/2025 1:00 PM EDT Subjective Gabi Zimmer is a 65 y.o. female who presents for a follow up evaluation of Diabetes Mellitis Type 2. Patient was diagnosed 1996. Current symptoms/problems include hyperglycemia. Past medical history includes NAIDU, CAD, COPD, obstructive sleep apnea, CKD, DDD, hyperlipidemia. Diabetes Associated symptoms include weakness. Admitted to nursing facility in June after CHAU due to encephalopathy. Has had another recent CHAU for hepatic encephalopathy and was discharged last week. Patient is accompanied by mother for visit today. POCT Hemoglobin A1C Date/Time Value 08/26/2025 1304 6.4 % 01/11/2024 1038 7.4 11/24/2021 0946 10.8 % (A) 07/17/2021 1336 9.8 % (A) Hemoglobin A1c (%) Date/Time Value 05/23/2025 0927 7.3 (H) 01/08/2025 1444 6.2 (H) - hemoglobin 8.6 on 08/20/2025 Current treatment includes intensive insulin injection program Semglee 24 units every morning Novolog 2:50>150 three times daily with meals. Estimated TDD: 30-40 units - will occasionally not receive three times per day Failed Medications: Metformin- hepatic function Compliance at present is estimated to be good. Known diabetic complications: nephropathy Cardiovascular risk factors: diabetes mellitus, dyslipidemia, and obesity (BMI >= 30 kg/m2) On ROSSI or ARB: No On Statin: Yes Current diet: on average, 3 meals per day limited healthy options due to residing in nursing facility Current exercise: no regular exercise limited due to weakness Home blood sugar records: Patient is checking blood glucose 2 or more times per day. Blood glucose readings reviewed in office from facility note, variable range with AM and PM readings. AM: 299, 236, 285, 430, 270, 289, 305 PM: 373, 322, 314, 369, 301, 442, 290, 221 Lows: Denies. Date of Last Eye Exam: 06/14 Date of Last Foot Exam: 07/14 What current meter are you using?: Accuchek When was your last flu shot?: fall When did you have labs last?: 08/15 - denies sores/wounds; declines foot exam today Lab Review Creatinine, Plasma (mg/dL) Date Value 08/20/2025 2.42 (H) 08/19/2025 2.66 (H) eGFRcr (mL/min/1.73m*2) Date Value 08/20/2025 22.0 08/19/2025 19.6 Thyroid Stimulating Hormone, Plasma (uIU/mL) Date Value 10/22/2024 2.03 10/13/2024 0.54 LDL Calculated (mg/dL) Date Value 04/30/2016 100 04/22/2015 102 LDL, Calculated (mg/dL) Date Value 10/22/2024 32 10/02/2024 69 Triglycerides, Plasma (mg/dL) Date Value 10/22/2024 49 10/15/2024 67 HDL (mg/dL) Date Value 10/22/2024 25 (L) 10/02/2024 42 (L) Albumin/Creatinine Ratio (mg/g) Date Value 04/30/2016 11 04/22/2015 13 AST, Plasma (U/L) Date Value 08/20/2025 32 08/19/2025 35 ALT, Plasma (U/L) Date Value 08/20/2025 12 08/19/2025 13 Alkaline Phosphatase, Plasma (U/L) Date Value 08/20/2025 175 (H) 08/19/2025 161 (H) C Peptide (ng/mL) Date Value 12/31/2024 2.65 The following portions of the chart were reviewed this encounter and updated as appropriate: Tobacco Allergies Meds Problems Med Hx Surg Hx Fam Hx Review of Systems Constitutional: Negative. HENT: Negative. Eyes: Negative. Respiratory: Negative. Cardiovascular: Negative. Gastrointestinal: Negative. Endocrine: See HPI Genitourinary: Negative. Musculoskeletal: Negative. Skin: Negative. Neurological: Positive for weakness. Psychiatric/Behavioral: Negative. Objective Physical Exam Vitals reviewed. Constitutional: Appearance: Normal appearance. She is obese. HENT: Head: Normocephalic and atraumatic. Eyes: Extraocular Movements: Extraocular movements intact. Pupils: Pupils are equal, round, and reactive to light. Cardiovascular: Rate and Rhythm: Normal rate. Pulmonary: Effort: Pulmonary effort is normal. Abdominal: General: Abdomen is flat. Musculoskeletal: General: Normal range of motion. Cervical back: Normal range of motion and neck supple. Skin: General: Skin is warm and dry. Coloration: Skin is jaundiced. Neurological: General: No focal deficit present. Mental Status: She is alert and oriented to person, place, and time. Psychiatric: Mood and Affect: Mood normal. Behavior: Behavior normal. Thought Content: Thought content normal. Judgment: Judgment normal. Assessment/Plan Gabi was seen today for diabetes. Diagnoses and all orders for this visit: Type 2 diabetes mellitus with hyperglycemia, with long-term current use of insulin - POCT glycosylated hemoglobin (Hb A1C) - Follow Up [facility]; Future Chronic kidney disease, stage 3b ([facility]) Hypoglycemia due to insulin Obesity (BMI 30-39.9) Other orders - Follow Up [facility] Diabetes Mellitis Type 2, is uncontrolled. A1c today within normal limits, however anemia and chronic kidney disease can cause this to be falsely low. Based on blood glucose readings provided at visit today, patient is on track for uncontrolled A1c. Adjust Semglee to 26 units every morning. Titrate by 2 units every 3 days until fasting blood glucose is consistently less than 150. Adjust lispro to 10 units BEFORE meals plus 1 unit for every 30 >150. Please check blood glucose readings before meals and give insulin preprandial for best glycemic control. If patient has already started to eat give only the base dose of lispro and DO NOT give correction. Patient would benefit from continuous glucose monitor. Begin using CGM to test BG 4+ times daily toadjust insulin doses for MDI. Labs- please send most recent CMP, fasting lipid panel and thyroid function test Encourage yearly eye exam. Encourage daily foot care. Discussed importance of lifestyle interventions for glycemic control (diet, exercise, weight reduction). Please provide consistent carbohydrate meals. Ideally 30-45 grams per meal using the MyPlate method. This will help reduce the risk of hypoglycemia associated base doses of fast acting insulin. If there are questions or concerns regarding recommended plan of care, please call the diabetes education team with any questions or concerns at [phone]. Follow up: 3 months Hypoglycemia due to insulin - no LOC with lows and hypo awareness is intact - preprandial dosing will help reduce this risk - advise to keep glucagon in case of glycemic emergency - Follow the following rule when treating hypoglycemia: HYPOGLYCEMIA ???RULE OF 15/15?Rule of 15/15?? is an easy way to remember how to treat low glucose. 1) If you are having symptoms (sweaty, shaky, hungry, irritable, tired), check your blood glucose: If your blood glucose is less than 70mg/dL, take 15 grams of fast acting carbohydrates and wait 15 minutes to re-check blood glucose. 2) If the symptoms of low blood glucose are gone but it is more than 1 hour away from your meal time, eat a snack of 1 starch and 1 protein such as ?? sandwich OR 1oz cheese and 6 crackers OR 1 tbsp peanut butter and 6 crackers OR 4oz non- fat milk and 2 fernando crackers. CKD - emphasized glycemic and blood pressure control - recommend to follow up with nephrology Obesity - Body mass index is 31.55 kg/m??. - contributing to insulin resistance - encouraged healthy diabetic diet and exercise as tolerated for optimal glycemic control. The patient received dietary education and exercise education because they have an above normal BMI. The following Diabetes education was reviewed: [x]SBGM to evaluate dose needs [x]Insulin coverage with carbohydrate intake [x]Site rotation [x] Exercise impact on glucose levels []Driving safety related to diabetes []Sick day management []Ketone testing [x]Over treatment of hypoglycemia [x] Hypoglycemia management [x]Call-in line use []Insulin pump pros and cons [x]Sensor home use []Pump class offerings []Suzi phenomena []Somogyi effect [] Alcohol related to diabetes []Benefits of written records [x]Pre-meal Bolusing [x]Daily foot care [x] Healthy diet and regular exercise [x]Long-term complications related to poor diabetes management [] Injection timing related to changes in activity/exercise I personally spent a total of 33 minutes on this encounter. This time includes face to face with patient, counseling and discussion and/or coordination of care. Electronically signed by: Miranda Hobson APRN [address] [place]. [address] PHONE [phone] FAX: [phone] documented in this encounter Plan of Treatment Upcoming Encounters Date Type Department Care Team (Late st Contact Info) Description 09/17/2025 9:45 AM EDT Clinical Support [facility] [place] [address] [place] [address] 09/17/2025 10:30 [address] EDT Social Work [facility] [place] [address] [place] [address] Lea Reilly, [place] [address] 09/17/2025 11:20 AM EDT Office Visit [facility] [address] [place] [address] Octavia Herrera, PA [address] [place] [address] 09/19/2025 10:30 AM EDT Appointment [facility] Inter[facility] Radiology [address] [place] [address] 09/19/2025 11:30 AM EDT Appointment [facility] [address] [place] [address] 09/26/2025 7:30 AM EST Appointment [facility] [address] [place] [address] 09/26/2025 8:30 AM EST Appointment [facility] [address] [place] [address] 10/01/2025 9:00 AM EST Office Visit [facility] [address] [place] [address] Lillie Pritchard MD [address] [place], [place] [phone] 10/03/2025 12:30 PM EST Appointment [facility] [address] [place] [address] 10/03/2025 1:30 PM EST Appointment [facility] [address] [place] [address] 12/20/2025 11:00 AM EST Office Visit [facility] [address] [place] [address] Miranda Hobson, RECEPTION CLERK [address] [place] [address] Scheduled Referrals Name Type Priority Associated Diagnoses Orde r Schedule Follow Up [facility] Outpatient Referral Routine Type 2 diabetes mellitus with hyperglycemia, with long-term current use of insulin Expected: 11/26/2025, Expires: 02/27/2027 documented as of this encounter Procedures Procedure Name Priority Date/Time Associated Diagnosis Comments POCT GLYCOSYLATED HEMOGLOBIN (HGB A1C) Routine 08/26/2025 1:04 PM EDT Type 2 diabetes mellitus with hyperglycemia, with long-term current use of insulin documented in this encounter Results * POCT glycosylated hemoglobin (Hb A1C) (08/26/2025 1:04 PM EDT) POCT Hemoglobin A1C 6.4 <5.7% Non-Diabet ic % [facility] Kit Lot Number [id number] [facility] Kit Expiration Date 06/16 [facility] Blood Venous blood specimen / Unknown 08/26/2025 1:04 PM EDT Miranda Hobson RECEPTION CLERK POINT OF CARE TEST ENTER /EDIT ORDERABLES Final Result [facility] [address] [place] [address] documented in this encounter Visit Diagnoses Diagnosis Type 2 diabetes mellitus with hyperglycemia, with long-term current use of insulin- Primary Chronic kidney disease, stage 3b (CMS/HCC) Hypoglycemia due to insulin Obesity (BMI 30-39.9) documented in this encounter Additional Health Concerns Assessment Noted Time PHQ-9 Depression Total Score: 6 06/11/20 10:59 AM EDT A fall risk assessment has been complete d for the patient 06/25/2025 12:59 PM EDT A Body Mass Index follow-up plan has been documented for the patient 08/26/2025 2:45 PM EDT documented as of this encounter Care Teams Combine Inspector Relationship Specialty Start Date End Date Alvarez Zimmer MD [address] [place] [phone] PCP - General Family Medicine 12/07/24 09/02/25 Lea Fernando [address] [place] [address] Shank Inspector Endocrinology 08/29/24 Rachel Ray APRN [address] [place] [address] Nurse Practitioner Gastroenterology 09/24/24 Tamera Isabel LPN VALUE-BASED TRANSFORMATION PROGRAM Licensed Practical Nurse 05/29/25 Shaniqua Trevino LPN TCM Nurse 08/21/25 documented as of this encounter
--- OUTSIDE RECORDS SUMMARY | 2025-08-29 08:03 | XMS_ITS | Encounter Summary ---
Author Organization [facility] Address [address] [place] [address] Care Team Providers Care Clinical Care Leader Name Role Phone Lea Fernando Unavailable [phone] Rachel Ray SAMPLE EXAMINER Unavailable [phone] Alvarez Zimmer MD Primary Care Provider [phone] Tamera Isabel STRUCTURAL STEEL WORKER Unavailable Unavailabl Shaniqua Centeno STRUCTURAL STEEL WORKER Unavailable Unavailable Reason for Referral * Imaging (Routine) - Closed Specialty Diagnoses / Procedures Referred By Contac t Referred To Contact Radiology Diagnoses Other ascites Procedures US Guided Thoracentesis Marianna Gordon APRN [address] [place] [address] Phone: tel: fax: Referral ID Status Reason Start Date Expiration Date Visits Re quested Visits Authorized [id number] Closed 08/09/2025 02/08/2027 1 1 Reason for Visit * Imaging (Routine) - Closed Specialty Diagnoses / Procedures Referred By Contac t Referred To Contact Radiology Diagnoses Other ascites Procedures US Guided Thoracentesis Marianna Gordon APRN [address] [place] [address] Phone: tel: fax: Referral ID Status Reason Start Date Expiration Date Visits Re quested Visits Authorized [id number] Closed 08/09/2025 02/08/2027 1 1 Encounter Details Date Type Department Care Team (Latest Contact Info) Description 08/29/2025 8:03 AM EDT - 08/29/2025 8:04 AM EDT Hospital Encounter [facility] Interventional Radiology [address] [place] [address] Daniele Kennedy Other ascites Discharge Disposition: Home or Self [...] [facility] [...] living in a alf (including now)? No 08/19/2025 [facility] Utilities Answer Date Recorded In the [...] drink first t kennedy in the morning (EYE-LEATHER STRIPPING MACHINE OPERATOR) to steady your nerves or [...] 1 03/01/2025 ergocalciferol (Vitamin D-2) 1.25 MG (76844 UT) capsuleIndication s:Vitamin D deficiency Take 1 [...] encounter Miscellaneous Notes * Post-Procedure Note - Maria Dolores Ontiveros APRN, DNP - 08/29/2025 10:00 AM EDT Vascular and Interventional Radiology Brief Postprocedure Note Provider: Maria Dolores Ontiveros APRN Pre-operative Diagnosis: Ascites Right pleural effusion Post-operative Diagnosis: Same Type of Anesthesia: Local Description of Findings: See PACS Technical/Surgical Procedures Used: US guided abdominal paracentesis US guided right thoracentesis Specimen Obtained: Yes, ascites fluid and pleural fluid Complications: None Estimated Blood Loss: none Procedure Events Event Event Time See detailed result report with images in PACS. The patient tolerated the procedure well without incident or complication and is in stable condition. * Interval H&P Note - Maria Dolores Ontiveros APRN, DNP - 08/29/2025 10:00 AM EDT Patient presents for paracentesis and thoracentesis. H&P personally reviewed, no interval change. Source Note - Maria Dolores Ontiveros APRN, DNP - 08/19/2025 2:57 PM EDT 08/19/25 Patient: Gabi Zimmer Date of : 1960/65 y.o. Requesting Service: Sushma Meza MD Chief Complaint: Encephalopathy Reason for Consult: Consulted for paracentesis and thoracentesis History of Present Illness: Gabi Zimmer is a 65 y.o. female with [...] Systems: Deferred due to patient location at [facility] Past Medical History Pertinent Negatives[1] Surgical [...] EXAM: Deferred due to patient location at [facility] Radiographics/Diagnostics: Imaging personally reviewed and reviewed [...] is no recent study available for direct [id number]-[id number] comparison. Assessment & Plan: Decompensated cirrhosis, MASH [...] Lactulose at home, not taking regularly at [facility] - Ascites/hepatic hydrothorax: Routine paracentesis/thoracentesis - Difficulty with titration of diuretics due to kidney function - INR 2.0 (H), Plt 58 (L) - VSS, Afebrile PLAN: - Will perform image guided paracentesis and right thoracentesis on 08/22/25 - Primary team to place specimen orders - Will consent prior to procedure - Hold anticoagulation at [place] evening prior to procedure - Goal INR <3 I spent 32 minutes on this encounter; which involved review/interpretation of diagnostics and reports, obtaining and/or reviewing separately obtained history, communicating findings, reviewing labs/imaging, documentation in EMR and formulating subsequent treatment plan. Thank you for allowing us to participate in the care of this patient. Maria Dolores Ontiveros APRN, DNP Interventional Radiology [phone] [1] Past Medical History: Diagnosis Date ADHD (attention deficit hyperactivity disorder) Allergic Anxiety disorder, unspecified Anxiety Bleeding gums Blood in urine Cataract Chronic kidney disease Cirrhosis (CMS/HCC) Colon cancer screening 09/20/2019 Added automatically from request for surgery [id number] Coronary artery disease Depression 1996 Diabetes mellitus [...] 1979 BLADDER SURGERY N/A Bladder surgery from [facility] BREAST BIOPSY 2011 BREAST SURGERY 2010 BUNIONECTOMY Right CATARACT EXTRACTION Bilateral 2016 CHOLECYSTECTOMY 1979 ESOPHAGOGASTRODUODENOSCOPY HYSTERECTOMY N/A Hysterectomy from [facility] KNEE SURGERY Bilateral ORAL SURGERY N/A Oral surgery from [facility] OTHER SURGICAL HISTORY 2015 ROOT CANAL WISDOM [...] Daily, Barrie Shabazz MD, 1,000 Units at 08/19/25 0913 glucose (Glutose) 40 % oral gel 15-30 [...] 10 mL, Intravenous, PRN, Barrie Matias MD documented in this encounter Plan of Treatment Upcoming Encounters Date Type Department Care Team (Late st Contact Info) Description 09/17/2025 9:45 AM EDT Clinical Support [facility] [address] [place] [address] 09/17/2025 10:30 AM EDT Social Work [facility] [address] [facility] [place] [address] Lea Reilly, [place] [address] 09/17/2025 11:20 AM EDT Office Visit [facility] [address] [place] [address] Octavia Herrera, MARIA GUADALUPE [address] [facility] [address] [place] [address] 09/19/2025 10:30 AM EDT Appointment [facility] Interventional Radiology [address] [place] [address] 09/19/2025 11:30 AM EDT Appointment [facility] Inter[facility] Radiology [address] [place] [address] 09/26/2025 7:30 AM EST Appointment [facility]iology [address] [place] [address] 09/26/2025 8:30 AM EST Appointment [facility] Inter[facility] Radiology [address] [place] [address] 10/01/2025 9:00 AM EST Office Visit [facility] [address], [address] [place] [address] Lillie Pritchard MD [address] [place] [address] 10/03/2025 12:30 PM EST Appointment [facility] Inter[facility] Radiology [address] [place] [address] 10/03/2025 1:30 PM EST Appointment [facility] Inter[facility]iology [address] [place] [address] 12/20/2025 11:00 AM EST Office Visit [facility] [address] [place] [address] Miranda Hobson, SAMPLE EXAMINER [address] [facility] [address] [place] [address] documented as of this encounter Procedures Procedure Name Priority Date/Time Associated Diagnosis Comments XR CHEST 1 VIEW STAT 08/29/2025 11:45 AM EDT US GUIDED ABDOMINAL PARACENTESIS Routine 08/29/2025 11:09 AM EDT Alcoholic cirrhosis of liver with ascites US GUIDED THORACENTESIS Routine 08/29/20 11:09 AM EDT Other ascites BODY FLUID CELL COUNT W/ MANUAL DIFFERENTIAL Routine 08/29/2025 10:27 AM EDT BODY FLUID CELL COUNT W/ MANUAL DIFFERENTIAL Routine 08/29/2025 10:27 AM EDT TOTAL PROTEIN, PLEURAL FLUID Routine 08/29/2025 10:27 AM EDT BODY FLUID, CYTOSPIN, PATHOLOGIST INTERPRETATION Routine 08/29/2025 10:27 AM EDT BODY FLUID, CYTOSPIN, PATHOLOGIST INTERPRETATION Routine 08/29/2025 10:27 AM EDT TOTAL PROTEIN, PERITONEAL FLUID Routine 08/29/2025 10:27 AM EDT documented in this encounter Results * XR Chest 1 View (08/29/2025 11:45 AM EDT) Anatomical Region Laterality Modality Chest Digital Radiogra phy Impressions 08/29/2025 11:44 AM EDT No pneumothorax. CRITICAL RESULT: No. COMMUNICATION: Per this written report. Drafted by Alvarez Brenner MD on 08/29/2025 11:43 AM Final report signed by Alvarez Brenner MD on 08/29/2025 11:44 AM Narrative 08/29/2025 11:44 AM EDT CLINICAL INDICATION: Right thoracentesis TECHNIQUE: AP chest COMPARISON: August 22, 2025 FINDINGS: Small amount of pleural fluid is noted in the right. No pneumothorax is identified. No edema or consolidation. Decreased atelectasis compared to prior. Procedure Note Alvarez Brenner MD - 08/29/2025 CLINICAL INDICATION: Right thoracentesis TECHNIQUE: AP chest COMPARISON: August 22, 2025 FINDINGS: Small amount of pleural fluid is noted in the right. No pneumothorax isidentified. No edema or consolidation. Decreased atelectasis compared toprior. IMPRESSION: No pneumothorax. CRITICAL RESULT: No. COMMUNICATION: Per this written report. Drafted by Alvarez Brenner MD on 08/29/2025 11:43 AM Final report signed by Alvarez Brenner MD on 08/29/2025 11:44 AM Maria Dolores Ontiveros SAMPLE EXAMINER, DNP IMG XR PROCEDURES Final Result * US Guided Thoracentesis (08/29/2025 11:09 AM EDT) Anatomical Region Laterality Modality Chest Ultrasound Impressions 08/29/2025 6:06 PM EDT Technically successful ultrasound guided paracentesis and right thoracentesis. A total of 3.2 liters of cloudy yellow fluid was removed from the abdomen. A total of 1.7 liters of cloudy dark yellow fluid was removed from the pleural space. Samples of the fluid were sent for laboratory analysis. Administered Albumin 37.5 g IV once post procedure. CRITICAL RESULT: No. COMMUNICATION: Per this written report. Preliminary report signed by Maria Dolores Ontiveros APRN on 08/29/2025 3:46 PM By electronically signing this report, I, the attending physician, attest that I was not present for the procedure(s) but agree with the final edited report. Drafted by Maria Dolores Ontiveros APRN on 08/29/2025 3:43 PM Final report signed by Dina Rose MD on 08/29/2025 6:06 PM Narrative 08/29/2025 6:06 PM EDT CLINICAL INDICATION: Gabi Zimmer is a 65 y.o. 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 TECHNIQUE: Plant And Equipment Worker: Maria Dolores Ontiveros APRN Secondary Charter Representative: None. Rad Dose: NA Medications: Continuous physiologic [...] collection in the right lower quadrant. 1% buffered lidocaine used for local analgesia. Under real time US guidance, a 6 Fr safety-centesis catheter was advanced into the ascites. Ultrasound images were sent to permanent storage in PACS. A total of 3.2 liters of cloudy yellow fluid was removed. The centesis catheter was removed and occlusive dressing applied. Limited chest ultrasound was then performed, which showed an anechoic fluid collection in the right pleural space. 1% buffered lidocaine used for local analgesia. Under ultrasound guidance, a 6 Fr safety-centesis catheter was advanced into the pleural fluid. Ultrasound images were sent to permanent storage in PACS. A total of 1.7 liters of cloudy dark yellow fluid was removed. The needle was removed and occlusive dressing applied. The patient tolerated the procedure well. The patient left the IR suite in stable condition. COMPARISON: None. FINDINGS: Moderate volume ascites and moderate right pleural fluid. COMPLICATION: No. Procedure Note Dina Rose MD - 08/29/2025 CLINICAL INDICATION: Gabi Zimmer is a 65 y.o. female with a past medical history of with apast medical history of CKD, Depression, Hypoparathyroidism, JONATHAN Type 2diabetes mellitus, asthma, osteoarthritis and MASH cirrhosis complicatedby ascites and intermittent hepatic hydrothorax who presents forparacentesis and right thoracentesis. TECHNIQUE: Plant And Equipment Worker: Maria Dolores Ontiveros APRN Secondary Charter Representative: None. Rad Dose: NA Medications: Continuous physiologic [...] fluidcollection in the right lower quadrant. 1% buffered lidocaine used forlocal analgesia. Under real time US guidance, a 6 Fr safety-centesiscatheter was advanced into the ascites. Ultrasound images were sent topermanent storage in PACS. A total of 3.2 liters of cloudy yellow fluidwas removed. The centesis catheter was removed and occlusive dressingapplied. Limited chest ultrasound was then performed, which showed an anechoicfluid collection in the right pleural space. 1% buffered lidocaine usedfor local analgesia. Under ultrasound guidance, a 6 Fr safety-centesiscatheter was advanced into the pleural fluid. Ultrasound images were sentto permanent storage in PACS. A total of 1.7 liters of cloudy dark yellowfluid was removed. The needle was removed and occlusive dressingapplied. The patient tolerated the procedure well. The patient left the IR suitein stable condition. COMPARISON: None. FINDINGS: Moderate volume ascites and moderate right pleural fluid. COMPLICATION: No. IMPRESSION: Technically successful ultrasound guided paracentesis and rightthoracentesis. A total of 3.2 liters of cloudy yellow fluid was removed from theabdomen. A total of 1.7 liters of cloudy dark yellow fluid was removed from thepleural space. Samples of the fluid were sent for laboratory analysis. Administered Albumin 37.5 g IV once post procedure. CRITICAL RESULT: No. COMMUNICATION: Per this written report. Preliminary report signed by Maria Dolores Ontiveros APRN on 08/29/2025 3:46 PM By electronically signing this report, I, the attending physician, attestthat I was not present for the procedure(s) but agree with the finaledited report. Drafted by Maria Dolores Ontiveros APRN on 08/29/2025 3:43 PM Final report signed by Dina Rose MD on 08/29/2025 6:06 PM Marianna Gordon APRN IM US PROCEDURES Final Resu lt * Body fluid, cytospin, pathologist interpretation (08/29/2025 10:27 AM EDT) Specimen Type Body Fluid LAB HEMATOLOGY METHOD 08/30/2025 3:25 PM EDT [facility] Specimen Source, Body Fluid Pleural, Right LAB HEMATOLOGY METHOD 08/30/2025 3:25 PM EDT [facility] Clinical Diagnosis, Body Fluid Cirrhosis; pleural effusion LAB HEMATOLOGY METHOD 08/30/2025 3:25 PM EDT [facility] Interpretation , Body Fluid No evidence of malignancy Predominantly chronic inflammatory cells Light blood A resident was involved in the service. I attest I examined the relevant preparations for the specimens and confirmed the diagnosis or interpretation. 08/30/2025 3:25 PM EDT [facility] Pathologist Signature, Body Fluid 08/30/2025 3:25 PM EDT [facility] Comment:Reviewed by: Kadie dobbs MD LAB CP ASR DISCLAIMER Yes 08/30/2025 3:25 PM EDT [facility] Body Fluid Structure of right pleural cavity / Unknown Non-blood Collection / Unknown 08/29/2025 10:27 AM EDT 08/29/2025 11:49 AM EDT us Maria Dolores Ontiveros APRN, DNP LAB BODY FLUIDS AND STOO LS ORDERABLES Final Result Performing Organization Address City/[facility]/ZIP Co de Phone Number [facility] [address] [place] [address] * Body fluid, cytospin, pathologist interpretation (08/29/2025 10:27 AM EDT) Specimen Type Body Fluid LAB HEMATOLOGY METHOD 08/30/2025 3:24 PM EDT [facility] Specimen Source, Body Fluid Peritoneal Fluid LAB HEMATOLOGY METHOD 08/30/2025 3:24 PM EDT [facility] Clinical Diagnosis, Body Fluid Cirrhosis, ascites LAB HEMATOLOGY METHOD 08/30/2025 3:24 PM EDT [facility] Interpretation , Body Fluid No evidence of malignancy Lymphocytosis Reactive lymphocytes and occasional plasma cells Light blood A resident was involved in the service. I attest I examined the relevant preparations for the specimens and confirmed the diagnosis or interpretation. 08/30/2025 3:24 PM EDT [facility] Pathologist Signature, Body Fluid 08/30/2025 3:24 PM EDT [facility] Comment:Reviewed by: Kadie dobbs MD LAB CP ASR DISCLAIMER Yes 08/30/2025 3:24 PM EDT [facility] Body Fluid Peritoneal fluid / Unknown Non-blood Collection / Unknown 08/29/2025 10:27 AM EDT 08/29/2025 11:49 AM EDT us Maria Dolores Ontiveros APRN, DNP LAB BODY FLUIDS AND STOO LS ORDERABLES Final Result Performing Organization Address City/[facility]/ZIP Co de Phone Number [facility] [address] [place] [address] * Total Protein, Pleural Fluid - Pleural Right (08/29/2025 10:27 AM EDT) Total Protein, Fluid 1.2 g/dL 08/29/2025 12:55 PM EDT [facility] Pleural Fluid Structure of right pleural cavity / Unknown Non-blood Collection / Unknown 08/29/2025 10:27 AM EDT 08/29/2025 11:49 AM EDT Narrative [facility] - 08/29/2025 12:55 PM EDT This test was developed and its performance characteristics determined by [facility]. The U.S. Food and Drug Administration has not approved or cleared this test. However, FDA clearance or approval is not currently required for clinical use. The results are not intended to be used as the sole means for clinical diagnosis or patient management decisions. Maria Dolores Ontiveros APRN, ANGELLA LAB BODY FLUIDS AND STOO LS ORDERABLES Final Result [facility] [address] [place] [address] * (ABNORMAL) Body Fluid Cell Count w/ Diff - Pleural Right (08/29/2025 10:27 AM EDT) Color, Body fluid Yellow LAB HEMATOLOGY METHOD 08/29/2025 2:21 PM EDT [facility] Appearance, Body fluid Cloudy(A) LAB HEMATOLOGY METHOD 08/29/2025 2:21 PM EDT [facility] Volume, Body fluid 9.0 cc LAB HEMATOLOGY METHOD 08/29/2025 2:21 PM EDT [facility] Fluid Container Tube 1 LAB HEMATOLOGY METHOD 08/29/2025 2:21 PM EDT [facility] Red Blood Cell Count, Body fluid 7,000 uL LAB HEMATOLOGY METHOD 08/29/2025 2:21 PM EDT [facility] Total Nucleated Cell Count, Body fluid 175 uL LAB HEMATOLOGY METHOD 08/29/2025 2:21 PM EDT [facility] Neutrophils %, Body fluid 4 % LAB HEMATOLOGY METHOD 08/29/2025 2:21 PM EDT [facility] Lymphocytes %, Body fluid 68 % LAB HEMATOLOGY METHOD 08/29/2025 2:21 PM EDT [facility] Monocytes/Macro phages %, Body fluid 26 % LAB HEMATOLOGY METHOD 08/29/2025 2:21 PM EDT [facility] Eosinophils %, Body fluid 0 % LAB HEMATOLOGY METHOD 08/29/2025 2:21 PM EDT [facility] Lining/Mesothel ial Cells %, Body fluid 2 % LAB HEMATOLOGY METHOD 08/29/2025 2:21 PM EDT [facility] Neutrophils Absolute (PMN), Body fluid 7 uL LAB HEMATOLOGY METHOD 08/29/2025 2:21 PM EDT [facility] Lymphocytes Absolute, Body fluid 119 uL LAB HEMATOLOGY METHOD 08/29/2025 2:21 PM EDT [facility] Monocytes/Macro phages Absolute, Body fluid 46 uL LAB HEMATOLOGY METHOD 08/29/2025 2:21 PM EDT [facility] Eosinophils Absolute, Body fluid 0 uL LAB HEMATOLOGY METHOD 08/29/2025 2:21 PM EDT [facility] Basophils Absolute, Body fluid 0 uL LAB HEMATOLOGY METHOD 08/29/2025 2:21 PM EDT [facility] Lining/Mesothel ial Cells Absolute, Body fluid 4 uL LAB HEMATOLOGY METHOD 08/29/2025 2:21 PM EDT [facility] Basophils %, Body fluid 0 % LAB HEMATOLOGY METHOD 08/29/2025 2:21 PM EDT [facility] Body Fluid Structure of right pleural cavity / Unknown Non-blood Collection / Unknown 08/29/2025 10:27 AM EDT 08/29/2025 11:49 AM EDT Maria Dolores Ontiveros SAMPLE EXAMINER, DNP LAB BODY FLUIDS AND STOOLS ORDERABLES NO SPECIMEN TYPE/SOURCE Final Result [facility] [address] [place] [address] * Protein - Ascites (08/29/2025 10:27 AM EDT) Total Protein, Fluid 0.8 g/dL 08/29/2025 12:55 PM EDT [facility] Ascites Peritoneal cavity structure / Unknown 08/29/2025 10:27 AM EDT 08/29/2025 11:49 AM EDT Narrative [facility] - 08/29/2025 12:55 PM EDT This test was developed and its performance characteristics determined by [facility]. The U.S. Food and Drug Administration has not approved or cleared this test. However, FDA clearance or approval is not currently required for clinical use. The results are not intended to be used as the sole means for clinical diagnosis or patient management decisions. Maria Dolores Ontiveros SAMPLE EXAMINER, DNP LAB BODY FLUIDS AND STOO LS ORDERABLES Final Result [facility] [address] [place] [address] * Body Fluid Cell Count With Diff - Ascites (08/29/2025 10:27 AM EDT) Color, Body fluid Yellow LAB HEMATOLOGY METHOD 08/29/2025 2:09 PM EDT [facility] Appearance, Body fluid Clear LAB HEMATOLOGY METHOD 08/29/2025 2:09 PM EDT [facility] Volume, Body fluid 30.0 cc LAB HEMATOLOGY METHOD 08/29/2025 2:09 PM EDT [facility] Fluid Container Specimen received in miscellaneous container LAB HEMATOLOGY METHOD 08/29/2025 2:09 PM EDT [facility] Red Blood Cell Count, Body fluid 5,000 uL LAB HEMATOLOGY METHOD 08/29/2025 2:09 PM EDT [facility] Total Nucleated Cell Count, Body fluid 138 uL LAB HEMATOLOGY METHOD 08/29/2025 2:09 PM EDT [facility] Neutrophils %, Body fluid 2 % LAB HEMATOLOGY METHOD 08/29/2025 2:09 PM EDT [facility] Lymphocytes %, Body fluid 75 % LAB HEMATOLOGY METHOD 08/29/2025 2:09 PM EDT [facility] Monocytes/Macr ophages %, Body fluid 21 % LAB HEMATOLOGY METHOD 08/29/2025 2:09 PM EDT [facility] Eosinophils %, Body fluid 1 % LAB HEMATOLOGY METHOD 08/29/2025 2:09 PM EDT [facility] Lining/Mesothe lial Cells %, Body fluid 1 % LAB HEMATOLOGY METHOD 08/29/2025 2:09 PM EDT [facility] Neutrophils Absolute (PMN), Body fluid 3 uL LAB HEMATOLOGY METHOD 08/29/2025 2:09 PM EDT [facility] Lymphocytes Absolute, Body fluid 103 uL LAB HEMATOLOGY METHOD 08/29/2025 2:09 PM EDT [facility] Monocytes/Macr ophages Absolute, Body fluid 29 uL LAB HEMATOLOGY METHOD 08/29/2025 2:09 PM EDT [facility] Eosinophils Absolute, Body fluid 1 uL LAB HEMATOLOGY METHOD 08/29/2025 2:09 PM EDT [facility] Basophils Absolute, Body fluid 0 uL LAB HEMATOLOGY METHOD 08/29/2025 2:09 PM EDT [facility] Lining/Mesothe lial Cells Absolute, Body fluid 1 uL LAB HEMATOLOGY METHOD 08/29/2025 2:09 PM EDT [facility] Basophils %, Body fluid 0 % LAB HEMATOLOGY METHOD 08/29/2025 2:09 PM EDT [facility] Body Fluid Peritoneal fluid / Unknown Non-blood Collection / Unknown 08/29/2025 10:27 AM EDT 08/29/2025 11:49 AM EDT Maria Dolores Ontiveros APRN, ANGELLA LAB BODY FLUIDS AND STOOLS ORDERABLES NO SPECIMEN TYPE/SOURCE Final Result [facility] [address] [place] [address] documented in this encounter Visit Diagnoses Diagnosis Other ascites documented in this encounter Administered Medications Inactive Administered Medications - up to 3 most recent administrations Medication Order MAR Action Action Date Dose Rate Site albumin human 25 % infusion 12.5 g 12.5 g, Intravenous, Every 15 min PRN, 5 doses, Starting on Sarahi 08/29/25 at 0834, Until 08/30/25 at 0243, Routine, Intraprocedure, Give additional 12.5 g doses per albumin replacement chart New Bag 08/29/2025 10:25 AM EDT 12.5 g albumin human 25 % infusion 37.5 g 37.5 g, Intravenous, Once as needed, 1 dose, Starting on Sarahi 08/29/25 at 0834, Until Sarahi 08/29/25 at 1010, Routine, Intraprocedure, For 5-6.9 L drained New Bag 08/29/2025 10:10 AM EDT 37.5 g lidocaine (Xylocaine) 1 % injection Intradermal, As needed, Starting on Sarahi 08/29/25 at 1002, Until Sarahi 08/29/25 at 1051, Routine, Intraprocedure Given 08/29/2025 10:51 AM EDT 5 mL Given 08/29/2025 10:02 AM EDT 5 mL documented in this encounter Additional Health Concerns Assessment Noted Time PHQ-9 Depression Total Score: 6 06/11/20 10:59 AM EDT A fall risk assessment has been complete d for the patient 06/25/2025 12:59 PM EDT A Body Mass Index follow-up plan has been documented for the patient 08/26/2025 2:45 PM EDT documented as of this encounter Care Teams Clinical Care Leader Relationship Specialty Start Date End Date Alvarez Zimmer MD [address] [place] [phone] PCP - General Family Medicine 12/07/24 09/02/25 Lea Fernando [address] [place] [address] Rotary Soil Stabilizer Operator Endocrinology 08/29/24 Rachel Ray APRN [address] [place] [address] Nurse Practitioner Gastroenterology 09/24/24 Tamera Isabel LPN VALUE-BASED TRANSFORMATION PROGRAM Licensed Practical Nurse 05/29/25 Shaniqua Trevino LPN TCM Nurse 08/21/25 documented as of this encounter
--- OUTSIDE RECORDS SUMMARY | 2025-08-29 08:05 | XMS_ITS | Encounter Summary ---
Author Organization [facility] Address [address] [place] [address] Care Team Providers Care Advertising Designer Name Role Phone Lea Fernando Unavailable [phone] Rachel Ray APRN Unavailable [phone] Alvarez Zimmer MD Primary Care Provider [phone] Tamera Isabel COOLER SERVICER Unavailable Unavailabl Shaniqua Centeno COOLER SERVICER Unavailable Unavailable Reason for Referral * Imaging (Routine) - Closed Specialty Diagnoses / Procedures Referred By Contac t Referred To Contact Radiology Diagnoses Alcoholic cirrhosis of liver with ascites Procedures US Guided Abdominal Paracentesis Marianna Gordon APRN [address] [place] [address] Phone: tel: fax: Referral ID Status Reason Start Date Expiration Date Visits Re quested Visits Authorized [id number] Closed 08/09/2025 02/08/2027 1 1 Reason for Visit * Imaging (Routine) - Closed Specialty Diagnoses / Procedures Referred By Contac t Referred To Contact Radiology Diagnoses Alcoholic cirrhosis of liver with ascites Procedures US Guided Abdominal Paracentesis Marianna Gordon APRN [address] [place] [address] Phone: tel: fax: Referral ID Status Reason Start Date Expiration Date Visits Re quested Visits Authorized [id number] Closed 08/09/2025 02/08/2027 1 1 Encounter Details Date Type Department Care Team (Latest Contact Info) Description 08/29/2025 8:05 AM EDT - 08/29/2025 11:22 AM EDT Hospital Encounter [facility] Interventional Radiology [address] [place] [address] Daniele Kennedy Alcoholic cirrhosis of liver with ascites Discharge [...] Never 06/25/2025 [facility] - [...] living in a penitentiary (including now)? No 08/19/2025 [facility] Utilities Answer Date Recorded In [...] first t kennedy in the morning (EYE-ENGINEERING JOB TITLES) to steady your nerves or to get [...] Date of Assessment Author No Risk Indicated 08/29/2025 9:23 AM EDT Daniele Kennedy * Question Answer Date of Assessment Author 1. Wish to be (Past 1 Month) No 025 9:23 AM EDT Daniele Kennedy 2. Non-Specific Active Suici liz Thoughts (Past 1 Month) No 08/29/2025 9:23 AM EDT Daniele Kennedy 6. Suicidal Behavior (Lifetime) No 9:23 AM EDT Daniele Kennedy documented as of this encounter Medications at [...] 1 03/01/2025 ergocalciferol (Vitamin D-2) 1.25 MG (59832 UT) capsuleIndication s:Vitamin D deficiency Take 1 [...] Description 09/17/2025 9:45 AM EDT Clinical Support [facility] [address] [place] [address] 09/17/2025 10:30 AM EDT Social Work [facility] [address] [facility] [address] [place] [address] Lea Reilly, [place] [address] 09/17/2025 11:20 AM EDT Office Visit [facility] [address] [place] [address] Octavia Herrera, PA [address] [facility] [address] [place] [address] 09/19/2025 10:30 AM EDT Appointment [facility] [address] [place] [address] 09/19/2025 11:30 AM EDT Appointment [facility] [address] [place] [address] 09/26/2025 7:30 AM EST Appointment [facility] [address] [place] [address] 09/26/2025 8:30 AM EST Appointment [facility] [address] [place] [address] 10/01/2025 9:00 AM EST Office Visit [address], [address] [place] [address] Lillie Pritchard MD [address] [place] [address] 10/03/2025 12:30 PM EST Appointment [facility] [address] [place] [address] 10/03/2025 1:30 PM EST Appointment [facility] [address] [place] [address] 12/20/2025 11:00 AM EST [facility] [address] [place] [address] Miranda Hobson, ADMIN PROG COORD [address] [place] [address] documented as of this encounter Procedures Procedure Name Priority Date/Time Associated Diagnosis Comments US GUIDED ABDOMINAL PARACENTESIS Routine 08/29/2025 11:09 AM EDT Alcoholic cirrhosis of liver with ascites documented in this encounter Results * US Guided Abdominal Paracentesis (08/29/2025 11:09 AM EDT) Anatomical Region Laterality Modality Abdomen Ultrasound Impressions 08/29/2025 6:06 PM EDT Technically [...] presents for paracentesis and right thoracentesis. TECHNIQUE: Slackman: Maria Dolores Ontiveros APRN Secondary Membership Manager: Aparna. Rad Dose: NA Medications: Continuous physiologic [...] who presents forparacentesis and right thoracentesis. TECHNIQUE: Slackman: Maria Dolores Ontiveros APRN Secondary Membership Manager: None. Rad Dose: NA Medications: Continuous physiologic [...] Dina Rose MD on 08/29/2025 6:06 PM us Marianna N Cheeks ADMIN PROG COORD IMG US PROCEDURES Final Resu lt documented in this encounter Visit Diagnoses Diagnosis Other ascites Alcoholic cirrhosis of liver with ascites documented in this encounter Additional Health Concerns Assessment Noted Time PHQ-9 Depression Total Score: 6 06/11/20 10:59 AM EDT A fall risk assessment has been complete d for the patient 06/25/2025 12:59 PM EDT A Body Mass Index follow-up plan has been documented for the patient 08/26/2025 2:45 PM EDT documented as of this encounter Care Teams Advertising Designer Relationship Specialty Start Date End Date Alvarez Zimmer MD [address] [place] [address] PCP - General Family Medicine 12/07/24 09/02/25 Lea Fernando [address] [place] [address] General Repair Mechanic Endocrinology 08/29/24 Rachel Ray APRN [address] [place] [address] Nurse Practitioner Gastroenterology 09/24/24 Tamera Isabel LPN VALUE-BASED TRANSFORMATION PROGRAM Licensed Practical Nurse 05/29/25 Shaniqua Trevino LPN TCM Nurse 08/21/25 documented as of this encounter
--- OUTSIDE RECORDS SUMMARY | 2025-08-29 11:23 | XMS_ITS | Encounter Summary ---
Author Organization [facility] Address [address] [place] [address] Care Team Providers Care Beamer Operator Name Role Phone Lea Fernando Unavailable [phone] Rachel Ray COURTESY CLERK Unavailable [phone] Alvarez Zimmer MD Primary Care Provider [phone] Tamera Isabel LUMBER MOVER Unavailable UnavailShaniqua Lomeli LUMBER MOVER Unavailable Unavailable Encounter Details Date Type Department Care Team (Latest Contact Info) Description 08/29/2025 11:23 AM EDT - 08/29/2025 11:59 PM EDT Hospital Encounter [facility] Radiology [address] [place] [address] Discharge Disposition: Home or Self Care Social [...] you attend [employer] [facility] [facility] or adventist services? Patient unable to answer 01/10/2025 Do you belong to any clubs o r organizations such as mormon groups, unions, [employer] or athletic groups, or school groups? Patient [...] more drinks on one occasion? Never 06/25/2025 [facility] Questionnaire [...] in a usp (including now)? No 08/19/2025 [facility] Utilities Answer Date Recorded In the [...] drink first t kennedy in the morning (EYE-BRAZER CONTROLLED ATMOSPHERIC FURNACE) to steady your nerves or to get [...] 6. Suicidal Behavior (Lifetime) No 9:23 AM TAMMYT Daniele Kennedy documented as of this encounter [...] 1 03/01/2025 ergocalciferol (Vitamin D-2) 1.25 MG (42636 UT) capsuleIndication s:Vitamin D deficiency Take 1 [...] Support [facility] [address] [facility] [address] [place] [address] 09/17/2025 10:[address] [facility] [address] [facility] [address] [place] [address] Lea Reilly, [place] [address] 09/17/2025 11:20 AM EDT Office Visit [facility] [address] [facility] [address] [place] [address] Octavia Herrera, PA [address] [facility] [address] [place] [address] 09/19/2025 10:30 AM EDT Appointment [facility]iology [address] [place] [address] 09/19/2025 11:30 AM EDT Appointment [facility] [address] [place] [address] 09/26/2025 7:30 AM EST Appointment [facility] [address] [place] [address] 09/26/2025 8:30 AM EST Appointment [facility] [address] [place] [address] 10/01/2025 9:00 AM EST Office Visit [facility] [address] [facility], [address] [place] [address] Lillie Pritchard MD [address] [place] [id number] 10/03/2025 12:30 PM EST Appointment [facility] [address] [place] [address] 10/03/2025 1:30 PM EST Appointment [facility] [address] [place] [address] 12/20/2025 11:00 AM EST Office Visit [facility] Endocrinology [address] [place] [address] Miranda Hobson, COURTESY CLERK [address] [facility] [address] [place] [address] documented as of this encounter Procedures Procedure Name Priority Date/Time Associated Diagnosis Comments XR CHEST 1 VIEW STAT 08/29/2025 11:45 AM EDT documented in this encounter Results [...] on 08/29/2025 11:44 AM Maria Dolores Ontiveros APRN, DNP IMG XR PROCEDURES Final Result documented in [...] documented as of this encounter Care Teams Beamer Operator Relationship Specialty Start Date End Date Alvarez Zimmer MD [address] [place] [address] PCP - General Family Medicine 12/07/24 09/02/25 Lea Fernando [address] [address] Therapy Administrative Assistant Endocrinology 08/29/24 Rachel Ray APRN [address] [facility] [address] [place] [address] Nurse Practitioner Gastroenterology 09/24/24 Tamera Isabel LPN VALUE-BASED TRANSFORMATION PROGRAM Licensed Practical Nurse 05/29/25 Shaniqua Trevino LPN TCM Nurse 08/21/25 documented as of this encounter
--- OUTSIDE RECORDS SUMMARY | 2025-09-03 08:40 | XMS_ITS | Encounter Summary ---
Author Organization [facility] Address [address] [place] [address] Care Team Providers Care Poly Area Supervisor Name Role Phone Lea Fernando Unavailable [phone] Rachel Ray RENTAL BOATS CARETAKER Unavailable [phone] Tamera Isabel BUSINESS AND MARKETING TEACHER Unavailable UnavailShaniqua Lomeli BUSINESS AND MARKETING TEACHER Unavailable Unavailable Lillie Pritchard MD Primary Care Provider [phone] Reason for Visit * Reason Comments Hospital Follow Up * Consultation (Routine) - Closed Specialty Diagnoses / Procedures Referred By Contac t Referred To Contact Family Medicine Diagnoses Hepatic encephalopathy (CMS/HCC) Sushma Meza MD [address] [place] [address] Phone: tel: fax: Referral ID Status Reason Start Date Expiration Date V isits Requested Visits Authorized [id number] Closed Specialty Services Required 08/20/2025 02/19/2027 1 1 Encounter Details Date Type Department Care Team (Late st Contact Info) Description 09/03/2025 8:40 AM EDT Office Visit [facility] [address], [address] [place] [address] Lillie Pritchard MD [address] [place] [address] 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) (Primary Dx); Chronic kidney disease, stage 3b (CMS/HCC); Anxiety disorder, unspecified type Social History Tobacco Use Types Packs/Day [...] do you attend chur or buddhist services? Never 05/29/2025 Do you [...] more drinks on one occasion? Never 09/03/2025 [facility] [...] in a alf (including now)? No 08/19/2025 [facility] Utilities Answer Date Recorded In the past [...] drink first t kennedy in the morning (EYE-ICT BUSINESS DEVELOPMENT MANAGER) to steady your nerves or [...] Sign Reading Time Taken Comments Blood Pressure 128/63 09/03/2025 8:51 AM EDT Pulse 85 09/03/2025 8:51 AM EDT Temperature 36.7 C (98 F) 09/03/2025 8:51 AM EDT Respiratory Rate - - Oxygen Saturation 98% 09/03/2025 8:51 AM EDT Inhaled Oxygen Concentration - - Weight 84.5 kg (186 lb 4.6 oz) 09/03/2025 8:51 A M EDT Height 165.1 cm (5' 5 ) 09/03/2025 8:51 AM EDT Body Mass Index 31 09/03/2025 8:51 AM EDT documented in this encounter Functional [...] Patient does not drink 09/03/2025 8:53 AM EDT Bari Mancini CNA Q3: How often do you have [...] hopeless Nearly every day 09/03/2025 8:56 AM EDBari Bender CNA Patient Health Questionnaire-2 Score 6 09/03/2025 [...] Author No Risk Indicated 09/03/2025 8:59 AM Bari Shankar CNA * How difficult have these problems made it for you to do your work, take care of things at home, or get along with other people? Answer Date of Assessment Author Very difficult 09/03/2025 8:[address] razia Shankar CNA * How difficult have these problems made it for you to do your work, take care of things at home, or get along with other people? Answer Date of Assessment Author Very difficult 09/03/2025 8:[address] razia Shankar CNA * Question Answer Date of Assessment Author 1. Wish to be (Past 1 Month) No 8:59 AM Bari Shankar CNA 2. Non-Specific Active Suici liz Thoughts (Past 1 Month) No 09/03/2025 8:59 AM Latricia Shankar CNA 6. Suicidal Behavior (Lifetime) No 8:59 AM Bari Shankar CNA documented as of this encounter Miscellaneous Notes * Progress Notes - Lillie Pritchard MD - 09/03/2025 8:40 AM EDT Transitional Care Management Progress Note: [id number] Visit Patient: Gabi Zimmer : 1960 PCP: Lillie Pritchard MD Subjective Gabi Zimmer is a 65 y.o. female presenting today [facility]. The main problem requiring admission was hepatic encephalopathy. The discharge summary and/or Transitional Care Management documentation was reviewed. Medication reconciliation was performed as indicated via the Barrie as Reviewed timestamp. Gabi Zimmer was contacted by Transitional Care Management services two days after her discharge. This encounter and supporting documentation was reviewed. The complexity of medical decision making for this patient's transitional care is moderate. HPI Gabi Zimmer is a 65 y.o. female who was admitted from 08/18 to 08/20 for hepatic encephalopathy.She was given her scheduled lactulose and ceftriaxone for presumed UTI then transitioned back to home ciprofloxacin. She had paracentesis performed at OSH that totaled to 6.5 L of fluid. She is taking lactulose three times daily though she reports she was concerned that the lactulose provided by her group home is a different color than she is used to. She is recommended to restrict fluid to 2L per day, which she has been adhering to. Review of Systems: Review of Systems Constitutional: Negative for chills and fever. Respiratory: Negative for shortness of breath. Cardiovascular: Negative for chest pain. Gastrointestinal: Negative for abdominal pain, diarrhea and vomiting. Past Medical History: Medical/Surgical/Social/Family History I have reviewed and updated the patient history. Objective Physical Exam Vitals reviewed. Constitutional: General: She is not in acute distress. Appearance: Normal appearance. HENT: Head: Normocephalic. Mouth/Throat: Mouth: Mucous membranes are moist. Pharynx: Oropharynx is clear. Eyes: Extraocular Movements: Extraocular movements intact. Conjunctiva/sclera: Conjunctivae normal. Cardiovascular: Rate and Rhythm: Normal rate and regular rhythm. Pulmonary: Effort: Pulmonary effort is normal. No respiratory distress. Breath sounds: Normal breath sounds. Abdominal: General: Bowel sounds are normal. There is distension. Skin: General: Skin is warm and dry. Neurological: Mental Status: She is alert. Psychiatric: Mood and Affect: Affect is tearful. Assessment/Plan 1. 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) (Primary) - Admitted to hepatic encephalopathy, had 6.5 L removed via paracentesis at OSH - Continue paracentesis as needed for fluid overload - Continue lactulose TID 2. Chronic kidney disease, stage 3b (CMS/HCC) - CARLOTTA on CKD during admission, treated for UTI and recommended to limit fluid intake to 2L daily - Basic metabolic panel; Future 3. Anxiety disorder, unspecified type - High anxiety due to current living situation, recommend restarting zoloft at this time - sertraline (Zoloft) 25 MG tablet; Take 1 tablet by mouth daily. Dispense: 90 tablet; Refill: 1 Follow-up: Follow up in about 4 weeks (around 10/01/2025) for With PCP for cirrhosis. Lillie Pritchard MD 09/03/2025 10:15 AM Cosigned by Fabiana Cunningham MD at 09/03/2025 1:19 PM EDT Associated attestation - Fabiana Cunningham MD - 09/03/2025 1:19 PM EDT I saw and evaluated the patient with the resident/fellow. I discussed the case with the resident/fellow and agree with the findings and plan as documented. Fabiana Cunningham MD documented in this encounter Plan of Treatment Upcoming Encounters Date Type Department Care Team (Late st Contact Info) Description 09/17/2025 9:45 AM EDT Clinical Support [facility] [address] [place] [address] 09/17/2025 10:30 [address] ED[address] Work [facility] [address] [place] [address] Lea Reilly, [place] [address] 09/17/2025 11:20 AM EDT Office Visit [facility] [address] [place] [address] Octavia Herrera, PA [address] [place] [address] 09/19/2025 10:30 AM EDT Appointment [facility] [address] [place] [address] 09/19/2025 11:30 AM EDT Appointment [facility] [address] [place] [address] 09/26/2025 7:30 AM EST Appointment [facility] [address] [place] [address] 09/26/2025 8:30 AM EST Appointment [facility] [address] [place] [address] 10/01/2025 9:00 AM EST Office Visit [facility] [address] [place] [address] Lillie Pritchard MD [address] [place], [place] [phone] 10/03/2025 12:30 PM EST Appointment [facility] [address] [place] [address] 10/03/2025 1:30 PM EST Appointment [facility] [address] [place] [address] 12/20/2025 11:00 AM EST Office Visit [facility] Endocrinology [address] [place] [address] Miranda Hobson, RENTAL BOATS CARETAKER [address] [place] [address] documented as of this encounter Results * (ABNORMAL) Basic metabolic panel (09/03/2025 10:16 AM EDT) Glucose, Plasma 278(H) 74 - 99 mg/dL 09/03/2025 1:23 PM EDT [facility] BUN, Plasma 34(H) 8 - 23 mg/dL 09/03/2025 1:23 PM EDT [facility] Creatinine, Plasma 1.34(H) 0.60 - 1.10 mg/dL 09/03/2025 1:23 PM EDT [facility] BUN/Creatinine Ratio 25 09/03/2025 1:23 PM EDT [facility] Sodium, Plasma 134(L) 136 - 145 mmol/L 09/03/2025 1:23 PM EDT [facility] Potassium, Plasma 3.9 3.6 - 4.9 mmol/L 09/03/2025 1:23 PM EDT [facility] Chloride, Plasma 98 97 - 107 mmol/L 09/03/2025 1:23 PM EDT [facility] CO2, Plasma 23 22 - 29 mmol/L 09/03/2025 1:23 PM EDT [facility] Anion Gap 13 6 - 16 mmol/L 09/03/2025 1:23 PM EDT [facility] Total Calcium, Plasma 8.6(L) 8.9 - 10.2 mg/dL 09/03/2025 1:23 PM EDT [facility] eGFRcr 44.6 mL/min/1.7 3m*2 09/03/2025 1:23 PM EDT [facility] Comment:Reported eGFRcr in m L/min/1.73m2 is based the CKD-EPI 2020 equation that does not use a race coefficient. Blood Venous blood specimen / Unknown Venipuncture / Unknown 09/03/2025 10:16 AM EDT 09/03/2025 10:16 AM EDT us Mini Churchill DO LAB BLOOD ORDERABLES Final R esult [facility] [address] [place] [address] documented in this encounter Visit Diagnoses Diagnosis 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)- Primary Chronic kidney disease, stage 3b (CMS/HCC) Anxiety disorder, unspecified type documented in this encounter Additional Health Concerns Assessment Noted Time PHQ-9 Depression Total Score: 24 025 8:56 AM EDT A fall risk assessment has been complete d for the patient 06/25/2025 12:59 PM EDT A Body Mass Index follow-up plan has been documented for the patient 09/03/2025 9:58 AM EDT documented as of this encounter Care Teams Poly Area Supervisor Relationship Specialty Start Date End Date Lillie Pritchard MD [address] [place] [address] PCP - General Family Medicine 09/03/25 Lea Fernando [address] [facility] [address] [place] [phone] Bottom Polisher Endocrinology 08/29/24 Rachel Ray, RENTAL BOATS CARETAKER [address] [place] [address] Nurse Practitioner Gastroenterology 09/24/24 Tamera Isabel LPN VALUE-BASED TRANSFORMATION PROGRAM Licensed Practical Nurse 05/29/25 Shaniqua Trevino LPN TCM Nurse 08/21/25 documented as of this encounter
--- OUTSIDE RECORDS SUMMARY | 2025-09-05 08:03 | XMS_ITS | Encounter Summary ---
Author Organization [facility] Address [address] [place] [address] Care Team Providers Care National Sales Name Role Phone Lea Fernando Unavailable [phone] Rachel Ray DECORATING AND ASSEMBLY SUPERVISOR Unavailable [phone] Tamera Isabel MARKETING PROJECT SPECIALIST Unavailable UnavailShaniqua Lomeli MARKETING PROJECT SPECIALIST Unavailable Unavailable Lillie Pritchard MD Primary Care Provider [phone] Reason for Referral * Imaging (Routine) - Closed Specialty Diagnoses / Procedures Referred By Contac t Referred To Contact Radiology Diagnoses Alcoholic cirrhosis of liver with ascites Procedures US Guided Abdominal Paracentesis Marianna Gordon APRN [address] [place] [address] Phone: tel: fax: Referral ID Status Reason Start Date Expiration Date Visits Re quested Visits Authorized [id number] Closed 08/09/2025 02/08/2027 1 1 * Imaging (Routine) - Closed Specialty Diagnoses / Procedures Referred By Contac t Referred To Contact Radiology Diagnoses Other ascites Procedures US Guided Thoracentesis Marianna Gordon APRN [address] [place] [address] Phone: tel: fax: Referral ID Status Reason Start Date Expiration Date Visits Re quested Visits Authorized [id number] Closed 08/09/2025 02/08/2027 1 1 * Clinic-Administered Medication (Routine) - Closed Specialty Diagnoses / Procedures Referred By Eder zhu Referred To Contact Diagnoses Other ascites Procedures RI ABDOM PARACENTESIS DX/THER W IMAGING GUIDANCE Fabiana Renee APRN, DNP [address] [place] [address] Phone: tel: fax: [address] [address] Phone: tel: fax: Referral ID Status Reason Start Date Expiration Date Visits Re quested Visits Authorized [id number] Closed 09/05/2025 03/07/2027 1 1 Reason for Visit * Imaging (Routine) - Closed Specialty Diagnoses / Procedures Referred By Eder zhu Referred To Contact Radiology Diagnoses Other ascites Procedures US Guided Thoracentesis Marianna Gordon APRN [address] [place] [address] Phone: tel: fax: Referral ID Status Reason Start Date Expiration Date Visits Re quested Visits Authorized [id number] Closed 08/09/2025 02/08/2027 1 1 Encounter Details Date Type Department Care Team (Late st Contact Info) Description 09/05/2025 8:03 AM EDT - 09/05/2025 11:53 AM EDT Hospital Encounter [facility] Interventional Radiology [address] [place] [id number] Shirley Monge RN [facility] INTERVENTIONAL RADIOLOGY Other ascites; Alcoholic cirrhosis of liver with [...] more drinks on one occasion? Never 09/03/2025 [facility] - Occupational Stress Questionnaire Answer [...] living in a jail (including now)? No 08/19/2025 [facility] Utilities Answer Date Recorded In the past 12 months has e [employer], gas, oil, or water company threatened to [...] drink first t kennedy in the morning (EYE-PETROGRAPHER) to steady your nerves or to get [...] Sign Reading Time Taken Comments Blood Pressure 117/67 09/05/2025 11:50 AM EDT Pulse 90 09/05/2025 11:50 AM EDT Temperature 36.7 C (98 F) 09/05/2025 11:50 AM EDT Respiratory Rate 14 09/05/2025 11:50 AM EDT Oxygen Saturation 99% 09/05/2025 11:50 AM EDT Inhaled Oxygen Concentration - - Weight 85.9 kg (189 lb 6 oz) 09/05/2025 8:22 AM EDT Height 165.1 cm (5' 5 ) 09/05/2025 8:22 AM EDT Body Mass Index 31.51 09/05/2025 8:22 AM EDT documented in this encounter Discharge Instructions * Discharge Instructions* Shirley Monge, RN - 09/05/2025 11:56 AM EDT *Interventional Radiology* (IR) Questions/Concerns & Appointments If there are questions or concerns after discharge please call: [facility] at [phone] Tuesday - Tuesday 8:00 AM to 4:30 PM After hours, weekends, and holidays please call [phone] and ask for the Interventional Radiology provider/Resident on-call For Emergencies please go to the nearest Emergency Room or dial 911. Intervention Radiology Appointments: If you need to reschedule a procedure, please call our Schedulers at [phone], option 4. If you need to schedule or reschedule a clinic appointment, please call [phone]. [facility] Interventional Radiology [facility] [address] [place] [address] documented in this encounter Medications at Time [...] 1 03/01/2025 ergocalciferol (Vitamin D-2) 1.25 MG (65749 UT) capsuleIndication s:Vitamin D deficiency Take 1 [...] Take 1 tablet by mouth nightly. 07/09/2025 sertraline (Zoloft) 25 MG tabletIndications :Anxiety disorder, unspecified type Take 1 tablet by mouth daily. 90 tablet 1 09/03/2025 prochlorperazine (Compazine) 5 MG tablet Take 1 tablet by mouth every 8 hours as needed for nausea or vomiting. 60 tablet 2 07/09/2025 documented as of this encounter Miscellaneous Notes * John Vargas - Shirley Monge RN - 09/05/2025 11:56 AM EDT Images from the original note were not included. [id number] Discharge Instructions for Thoracentesis Thoracentesis is a [...] blood. Last Reviewed Date: 2025 00:00:00 ?? [id number] The [employer]. All rights reserved. This information is not intended as a substitute for professional medical care. Always follow your healthcare professional's instructions. * [facility] - 09/05/2025 11:56 AM EDT Images from the original note were not included. [id number] Discharge Instructions for Paracentesis Paracentesis is a [...] fainting. Last Reviewed Date: 2025 00:00:00 ?? [id number] [employer]. All rights reserved. This information is not intended as a substitute for professional medical care. Always follow your healthcare professional's instructions. * Post-Procedure Note - Maria Dolores Ontiveros APRN, DNP - 09/05/2025 10:00 AM EDT Vascular and Interventional Radiology Brief Postprocedure Note Provider: Maria Dolores Ontiveros APRN Pre-operative Diagnosis: Ascites Right pleural effusion Post-operative Diagnosis: Same Type of Anesthesia: Local Description of Findings: See PACS Technical/Surgical Procedures Used: US guided paracentesis US guided right thoracentesis Specimen Obtained: Yes, ascites and pleural fluid Complications: None Estimated Blood Loss: none Procedure Events Event Event Time See detailed result report with images in PACS. The patient tolerated the procedure well without incident or complication and is in stable condition. Maria Dolores Ontiveros APRN, DNP * Interval H&P Note - Maria Dolores Ontiveros APRN, DNP - 09/05/2025 10:00 AM EDT Patient presents for paracentesis and right thoracentesis. H&P personally reviewed, no intervalchange. Source Note - Maria Dolores Ontiveros APRN, [...] Systems: Deferred due to patient location at [facility] Past Medical History Pertinent Negatives[1] Surgical [...] EXAM: Deferred due to patient location at [facility] Radiographics/Diagnostics: Imaging personally reviewed and reviewed [...] is no recent study available for direct [id number]-[id number]-pflj comparison. Assessment & Plan: Decompensated cirrhosis, MASH [...] Lactulose at home, not taking regularly at [facility] - Ascites/hepatic hydrothorax: Routine paracentesis/thoracentesis - Difficulty [...] care of this patient. Maria Dolores Ontiveros, DECORATING AND ASSEMBLY SUPERVISOR, DNP Interventional Radiology [phone] [1] Past Medical History: Diagnosis Date ADHD (attention deficit hyperactivity disorder) Allergic Anxiety disorder, unspecified Anxiety Bleeding gums Blood in urine Cataract Chronic kidney disease Cirrhosis (CMS/HCC) Colon cancer screening 09/20/2019 Added automatically from request for surgery [id number] Coronary artery disease Depression 1996 Diabetes mellitus [...] 1979 BLADDER SURGERY N/A Bladder surgery from [facility] BREAST BIOPSY 2011 BREAST SURGERY 2010 BUNIONECTOMY Right CATARACT EXTRACTION Bilateral 2016 CHOLECYSTECTOMY 1980 ESOPHAGOGASTRODUODENOSCOPY HYSTERECTOMY N/A Hysterectomy from [facility] KNEE SURGERY Bilateral ORAL SURGERY N/A Oral surgery from [facility] OTHER SURGICAL HISTORY 2014 ROOT CANAL WISDOM [...] at 08/18/25 1543, 2 g at 08/18/25 1543 cetirizine (ZyrTEC) tablet 10 mg, 10 mg, Oral, Daily, Barrie Shabazz MD, 10 mg at 08/19/25 0913 cholecalciferol (Vitamin D-3) tablet 1,000 Units, 1,000 [...] Description 09/17/2025 9:45 AM EDT Clinical Support [facility] [place] [address] [facility] [address] [place] [address] 09/17/2025 10:30 AM EDT Social Work [facility] [address] [facility] [address] [place] [address] Lea Reilly, [place] [address] 09/17/2025 11:20 AM EDT Office Visit [facility] [place] [address] [facility] [address] [place] [address] Octavia Herrera, MARIA GUADALUPE [address] [facility] [address] [place] [address] 09/19/2025 10:30 AM EDT Appointment [facility] Inter[facility] Radiology [address] [place] [address] 09/19/2025 11:30 AM EDT Appointment [facility] Inter[facility] Radiology [address] [place] [address] 09/26/2025 7:30 AM EST Appointment [facility]iology [address] [place] [address] 09/26/2025 8:30 AM EST Appointment [facility]iology [address] [place] [address] 10/01/2025 9:00 AM EST Office Visit [facility] [address], [address] [place] [phone] Lillie Pritchard MD [address] [place] [address] 10/03/2025 12:30 PM EST Appointment [facility]iology [address] [place] [address] 10/03/2025 1:30 PM EST Appointment [facility]iology [address] [place] [address] 12/20/2025 11:00 AM EST Office Visit [facility] [address] [place] [phone] Miranda Hobson, DECORATING AND ASSEMBLY SUPERVISOR [address] [place] [address] documented as of this encounter Procedures Procedure Name Priority Date/Time Associated Diagnosis Comments XR CHEST 1 VIEW STAT 09/05/2025 12:10 PM EDT US GUIDED ABDOMINAL PARACENTESIS Routine 09/05/2025 11:42 AM EDT Alcoholic cirrhosis of liver with ascites US GUIDED THORACENTESIS Routine 09/05/20 11:42 AM EDT Other ascites BODY FLUID CELL COUNT W/ MANUAL DIFFERENTIAL Routine 09/05/2025 11:23 AM EDT TOTAL PROTEIN, PLEURAL FLUID Routine 09/05/2025 11:23 AM EDT BODY FLUID, CYTOSPIN, PATHOLOGIST INTERPRETATION Routine 09/05/2025 11:23 AM EDT BODY FLUID CELL COUNT W/ MANUAL DIFFERENTIAL Routine 09/05/2025 10:26 AM EDT BODY FLUID, CYTOSPIN, PATHOLOGIST INTERPRETATION Routine 09/05/2025 10:26 AM EDT TOTAL PROTEIN, PERITONEAL FLUID Routine 09/05/2025 10:26 AM EDT documented in this encounter Results * XR Chest 1 View (09/05/2025 12:10 PM EDT) Anatomical Region Laterality Modality Chest Digital Radiogra phy Impressions 09/05/2025 12:15 PM EDT No pneumothorax. CRITICAL RESULT: No. COMMUNICATION: Per this written report Drafted by Bari Aguillon MD on 09/05/2025 12:14 PM Final report signed by Bari Aguillon MD on 09/05/2025 12:15 PM Narrative 09/05/2025 12:15 PM EDT CLINICAL INDICATION: Right thoracentesis TECHNIQUE: XR CHEST 1 VIEW COMPARISON: August 29, 2025 FINDINGS: No pneumothorax. Right basal opacities are similar to prior trace amount of right-sided pleural fluid may be present. Procedure Note Bari Aguillon MD - 09/05/2025 CLINICAL INDICATION: Right thoracentesis TECHNIQUE: XR CHEST 1 VIEW COMPARISON: August 29, 2025 FINDINGS: No pneumothorax. Right basal opacities are similar to prior trace amountof right-sided pleural fluid may be present. IMPRESSION: No pneumothorax. CRITICAL RESULT: No. COMMUNICATION: Per this written report Drafted by Bari Aguillon MD on 09/05/2025 12:14 PM Final report signed by Bari Aguillon MD on 09/05/2025 12:15 PM us Maria Dolores Ontiveros APRN, DNP IMG XR PROCEDURES Final Result * US Guided Abdominal Paracentesis (09/05/2025 11:42 AM EDT) Anatomical Region Laterality Modality Abdomen Ultrasound Impressions 09/12/2025 4:25 PM EDT - Technically successful US-guided paracentesis. A total of 3.5 liters of cloudy yellow fluid was removed. A sample of the fluid was sent for laboratory analysis. - Technically successful ultrasound guided thoracentesis. A total of 2 liters of cloudy dark yellow fluid was removed. A sample of the fluid was sent for laboratory analysis. - Administered Albumin 37.5 g IV once post procedure. - Recommended to patient that she come for her next paracentesis and thoracentesis next Tuesday instead of due to large volume of pleural fluid today with some fluid remaining post procedure. CRITICAL RESULT: No. COMMUNICATION: Per this written report. Preliminary report signed by Maria Dolores Ontiveros APRN on 09/05/2025 1:46 PM By electronically signing this report, I, the attending physician, attest that I was not present for the procedure(s) but agree with the final edited report. Drafted by Maria Dolores Ontiveros APRN on 09/05/2025 1:41 PM Final report signed by Gisella Mcguire MD on 09/12/2025 4:25 PM Narrative 09/12/2025 4:25 PM EDT CLINICAL INDICATION: 65 y.o. 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 She presents for weekly paracentesis and right thoracentesis TECHNIQUE: Software Sales Manager: Maria Dolores Ontiveros APRN Secondary Development Geologist: None. Rad Dose: NA Medications: Continuous physiologic monitoring provided by a qualified healthcare professional. Administered: 1% Lidocaine with sodium bicarbonate SQ. Antibiotics: NA Time out: 1021 Procedure: PARACENTESIS: After discussion of risks and benefits, informed [...] PACS. A total of 3.5 liters of cloudy yellow fluid was removed. The centesis catheter was removed and occlusive dressing applied. THORACENTESIS: Limited chest ultrasound was performed, which showed an anechoic fluid collection in the right pleural space. 1% buffered lidocaine used for local analgesia. Under real-time ultrasound guidance, a 6 Fr safety-centesis catheter was advanced into the pleural fluid. Ultrasound images were sent to permanent storage in PACS. A total of 2 liters of cloudy dark yellow fluid was removed. The needle was removed and occlusive dressing applied. The patient tolerated the procedure well. The patient left the IR suite in stable condition. COMPARISON: None. FINDINGS: Moderate volume ascites. Large right pleural effusion. COMPLICATION: No. Procedure Note Gisella Mcguire MD - 09/12/2025 CLINICAL INDICATION: 65 y.o. female with a past medical history of with a past medical historyof CKD, Depression, Hypoparathyroidism, JONATHAN Type 2 diabetes mellitus,asthma, osteoarthritis, and MASH cirrhosis complicated by ascites andintermittent hepatic hydrothorax. She presents for weekly paracentesis andright thoracentesis TECHNIQUE: Software Sales Manager: Maria Dolores Ontiveros APRN Secondary Development Geologist: None. Rad Dose: NA Medications: Continuous physiologic monitoring provided by a qualifiedhealthcare professional. Administered: 1% Lidocaine with sodiumbicarbonate SQ. Antibiotics: NA Time out: 1021 Procedure: PARACENTESIS: After discussion of risks and benefits, informed [...] topermanent storage in PACS. A total of 3.5 liters of cloudy yellow fluidwas removed. The centesis catheter was removed and occlusive dressingapplied. THORACENTESIS: Limited chest ultrasound was performed, which showed an anechoic fluidcollection in the right pleural space. 1% buffered lidocaine used forlocal analgesia. Under real-time ultrasound guidance, a 6 Frsafety-centesis catheter was advanced into the pleural fluid. Ultrasoundimages were sent to permanent storage in PACS. A total of 2 liters ofcloudy dark yellow fluid was removed. The needle was removed and occlusivedressing applied. The patient tolerated the procedure well. The patient left the IR suitein stable condition. COMPARISON: None. FINDINGS: Moderate volume ascites. Large right pleural effusion. COMPLICATION: No. IMPRESSION: - Technically successful US-guided paracentesis. A total of 3.5 liters ofcloudy yellow fluid was removed. A sample of the fluid was sent forlaboratory analysis. - Technically successful ultrasound guided thoracentesis. A total of 2liters of cloudy dark yellow fluid was removed. A sample of the fluid wassent for laboratory analysis. - Administered Albumin 37.5 g IV once post procedure. - Recommended to patient that she come for her next paracentesis andthoracentesis next Tuesday instead of due to large volume ofpleural fluid today with some fluid remaining post procedure. CRITICAL RESULT: No. COMMUNICATION: Per this written report. Preliminary report signed by Maria Dolores Ontiveros APRN on 09/05/2025 1:46 PM By electronically signing this report, I, the attending physician, attestthat I was not present for the procedure(s) but agree with the finaledited report. Drafted by Maria Dolores Ontiveros APRN on 09/05/2025 1:41 PM Final report signed by Gisella Mcguire MD on 09/12/2025 4:25 PM us Marianna Gordon ADRI IMG US PROCEDURES Final Resu lt * US Guided Thoracentesis (09/05/2025 11:42 AM EDT) Anatomical Region Laterality Modality Chest Ultrasound Impressions 09/12/2025 4:25 PM EDT - Technically successful US-guided paracentesis. A total of 3.5 liters of cloudy yellow fluid was removed. A sample of the fluid was sent for laboratory analysis. - Technically successful ultrasound guided thoracentesis. A total of 2 liters of cloudy dark yellow fluid was removed. A sample of the fluid was sent for laboratory analysis. - Administered Albumin 37.5 g IV once post procedure. - Recommended to patient that she come for her next paracentesis and thoracentesis next Tuesday instead of due to large volume of pleural fluid today with some fluid remaining post procedure. CRITICAL RESULT: No. COMMUNICATION: Per this written report. Preliminary report signed by Maria Dolores Ontiveros APRN on 09/05/2025 1:46 PM By electronically signing this report, I, the attending physician, attest that I was not present for the procedure(s) but agree with the final edited report. Drafted by Maria Dolores Ontiveros APRN on 09/05/2025 1:41 PM Final report signed by Gisella Mcguire MD on 09/12/2025 4:25 PM Narrative 09/12/2025 4:25 PM EDT CLINICAL INDICATION: 65 y.o. 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 She presents for weekly paracentesis and right thoracentesis TECHNIQUE: Software Sales Manager: Maria Dolores Ontiveros APRN Secondary Development Geologist: None. Rad Dose: NA Medications: Continuous physiologic monitoring provided by a qualified healthcare professional. Administered: 1% Lidocaine with sodium bicarbonate SQ. Antibiotics: NA Time out: 1021 Procedure: PARACENTESIS: After discussion of risks and benefits, informed [...] PACS. A total of 3.5 liters of cloudy yellow fluid was removed. The centesis catheter was removed and occlusive dressing applied. THORACENTESIS: Limited chest ultrasound was performed, which showed an anechoic fluid collection in the right pleural space. 1% buffered lidocaine used for local analgesia. Under real-time ultrasound guidance, a 6 Fr safety-centesis catheter was advanced into the pleural fluid. Ultrasound images were sent to permanent storage in PACS. A total of 2 liters of cloudy dark yellow fluid was removed. The needle was removed and occlusive dressing applied. The patient tolerated the procedure well. The patient left the IR suite in stable condition. COMPARISON: None. FINDINGS: Moderate volume ascites. Large right pleural effusion. COMPLICATION: No. Procedure Note Gisella Mcguire MD - 09/12/2025 CLINICAL INDICATION: 65 y.o. female with a past medical history of with a past medical historyof CKD, Depression, Hypoparathyroidism, JONATHAN Type 2 diabetes mellitus,asthma, osteoarthritis, and MASH cirrhosis complicated by ascites andintermittent hepatic hydrothorax. She presents for weekly paracentesis andright thoracentesis TECHNIQUE: Software Sales Manager: Maria Dolores Ontiveros APRN Secondary Development Geologist: None. Rad Dose: NA Medications: Continuous physiologic monitoring provided by a qualifiedhealthcare professional. Administered: 1% Lidocaine with sodiumbicarbonate SQ. Antibiotics: NA Time out: 1021 Procedure: PARACENTESIS: After discussion of risks and benefits, informed [...] topermanent storage in PACS. A total of 3.5 liters of cloudy yellow fluidwas removed. The centesis catheter was removed and occlusive dressingapplied. THORACENTESIS: Limited chest ultrasound was performed, which showed an anechoic fluidcollection in the right pleural space. 1% buffered lidocaine used forlocal analgesia. Under real-time ultrasound guidance, a 6 Frsafety-centesis catheter was advanced into the pleural fluid. Ultrasoundimages were sent to permanent storage in PACS. A total of 2 liters ofcloudy dark yellow fluid was removed. The needle was removed and occlusivedressing applied. The patient tolerated the procedure well. The patient left the IR suitein stable condition. COMPARISON: None. FINDINGS: Moderate volume ascites. Large right pleural effusion. COMPLICATION: No. IMPRESSION: - Technically successful US-guided paracentesis. A total of 3.5 liters ofcloudy yellow fluid was removed. A sample of the fluid was sent forlaboratory analysis. - Technically successful ultrasound guided thoracentesis. A total of 2liters of cloudy dark yellow fluid was removed. A sample of the fluid wassent for laboratory analysis. - Administered Albumin 37.5 g IV once post procedure. - Recommended to patient that she come for her next paracentesis andthoracentesis next Tuesday instead of due to large volume ofpleural fluid today with some fluid remaining post procedure. CRITICAL RESULT: No. COMMUNICATION: Per this written report. Preliminary report signed by Maria Dolores Ontiveros APRN on 09/05/2025 1:46 PM By electronically signing this report, I, the attending physician, attestthat I was not present for the procedure(s) but agree with the finaledited report. Drafted by Maria Dolores Ontiveros APRN on 09/05/2025 1:41 PM Final report signed by Gisella Mcguire MD on 09/12/2025 4:25 PM us Marianna Gordon DECORATING AND ASSEMBLY SUPERVISOR IMG US PROCEDURES Final Resu lt * Body fluid, cytospin, pathologist interpretation (09/05/2025 11:23 AM EDT) Specimen Type Body Fluid LAB HEMATOLOGY METHOD 09/10/2025 12:11 PM EDT [facility] Specimen Source, Body Fluid Pleural, Right LAB HEMATOLOGY METHOD 09/10/2025 12:11 PM EDT [facility] Clinical Diagnosis, Body Fluid Cirrhosis, ascites, right pleural effusion LAB HEMATOLOGY METHOD 09/10/2025 12:11 PM EDT [facility] Interpretation , Body Fluid No evidence of malignancy; chronic inflammatory cells (lymphocytosis) , light blood. A resident was involved in the service. I attest I examined the relevant preparations for the specimens and confirmed the diagnosis or interpretation. 09/10/2025 12:11 PM EDT [facility] Pathologist Signature, Body Fluid 09/10/2025 12:11 PM EDT [facility] Comment:Reviewed by: Iza Blue MD LAB CP ASR DISCLAIMER Yes 09/10/2025 12:11 PM EDT [facility] Body Fluid Structure of right pleural cavity / Unknown Non-blood Collection / Unknown 09/05/2025 11:23 AM EDT 09/05/2025 1:31 PM EDT us Maria Dolores Ontiveros APRN, DNP LAB BODY FLUIDS AND STOO LS ORDERABLES Final Result [facility] [address] [place] [address] * Total Protein, Pleural Fluid - Pleural Right (09/05/2025 11:23 AM EDT) Total Protein, Fluid 1.2 g/dL 09/05/2025 5:15 PM EDT [facility] Pleural Fluid Structure of right pleural cavity / Unknown Non-blood Collection / Unknown 09/05/2025 11:23 AM EDT 09/05/2025 1:31 PM EDT Narrative [facility] - 09/05/2025 5:15 PM EDT This test was developed and its performance characteristics determined by [facility]. The U.S. Food and Drug Administration has not approved or cleared this test. However, FDA clearance or approval is not currently required for clinical use. The results are not intended to be used as the sole means for clinical diagnosis or patient management decisions. Maria Dolores Ontiveros DECORATING AND ASSEMBLY SUPERVISOR, DNP LAB BODY FLUIDS AND STOO LS ORDERABLES Final Result [facility] [address] [place] [address] * Body Fluid Cell Count w/ Diff - Pleural Right (09/05/2025 11:23 AM EDT) Color, Body fluid [place] LAB HEMATOLOGY METHOD 09/05/2025 4:45 PM EDT [facility] Appearance, Body fluid Clear LAB HEMATOLOGY METHOD 09/05/2025 4:45 PM EDT [facility] Volume, Body fluid 9.0 cc LAB HEMATOLOGY METHOD 09/05/2025 4:45 PM EDT [facility] Fluid Container Tube 2 LAB HEMATOLOGY METHOD 09/05/2025 4:45 PM EDT [facility] Red Blood Cell Count, Body fluid 6,000 uL LAB HEMATOLOGY METHOD 09/05/2025 4:45 PM EDT [facility] Total Nucleated Cell Count, Body fluid 145 uL LAB HEMATOLOGY METHOD 09/05/2025 4:45 PM EDT [facility] Neutrophils %, Body fluid 3 % LAB HEMATOLOGY METHOD 09/05/2025 4:45 PM EDT [facility] Lymphocytes %, Body fluid 93 % LAB HEMATOLOGY METHOD 09/05/2025 4:45 PM EDT [facility] Monocytes/Macro phages %, Body fluid 4 % LAB HEMATOLOGY METHOD 09/05/2025 4:45 PM EDT [facility] Eosinophils %, Body fluid 0 % LAB HEMATOLOGY METHOD 09/05/2025 4:45 PM EDT [facility] Lining/Mesothel ial Cells %, Body fluid 0 % LAB HEMATOLOGY METHOD 09/05/2025 4:45 PM EDT [facility] Neutrophils Absolute (PMN), Body fluid 4 uL LAB HEMATOLOGY METHOD 09/05/2025 4:45 PM EDT [facility] Lymphocytes Absolute, Body fluid 135 uL LAB HEMATOLOGY METHOD 09/05/2025 4:45 PM EDT [facility] Monocytes/Macro phages Absolute, Body fluid 6 uL LAB HEMATOLOGY METHOD 09/05/2025 4:45 PM EDT [facility] Eosinophils Absolute, Body fluid 0 uL LAB HEMATOLOGY METHOD 09/05/2025 4:45 PM EDT [facility] Basophils Absolute, Body fluid 0 uL LAB HEMATOLOGY METHOD 09/05/2025 4:45 PM EDT [facility] Lining/Mesothel ial Cells Absolute, Body fluid 0 uL LAB HEMATOLOGY METHOD 09/05/2025 4:45 PM EDT [facility] Basophils %, Body fluid 0 % LAB HEMATOLOGY METHOD 09/05/2025 4:45 PM EDT [facility] Body Fluid Structure of right pleural cavity / Unknown Non-blood Collection / Unknown 09/05/2025 11:23 AM EDT 09/05/2025 1:31 PM EDT Maria Dolores Ontiveros DECORATING AND ASSEMBLY SUPERVISOR, DNP LAB BODY FLUIDS AND STOOLS ORDERABLES NO SPECIMEN TYPE/SOURCE Final Result [facility] [address] [place] [address] * Body fluid, cytospin, pathologist interpretation (09/05/2025 10:26 AM EDT) Specimen Type Body Fluid LAB HEMATOLOGY METHOD 09/06/2025 3:57 PM EDT [facility] Specimen Source, Body Fluid Peritoneal Fluid LAB HEMATOLOGY METHOD 09/06/2025 3:57 PM EDT [facility] Clinical Diagnosis, Body Fluid Cirrhosis, ascites, right pleural effusion LAB HEMATOLOGY METHOD 09/06/2025 3:57 PM EDT [facility] Interpretation , Body Fluid No evidence of malignancy Chronic inflammatory cells Light blood A resident was involved in the service. I attest I examined the relevant preparations for the specimens and confirmed the diagnosis or interpretation. 09/06/2025 3:57 PM EDT [facility] Pathologist Signature, Body Fluid 09/06/2025 3:57 PM EDT [facility] Comment:Reviewed by: Kadie dobbs MD LAB CP ASR DISCLAIMER Yes 09/06/2025 3:57 PM EDT [facility] Body Fluid Peritoneal fluid / Unknown Non-blood Collection / Unknown 09/05/2025 10:26 AM EDT 09/05/2025 10:52 AM EDT Maria Dolores Ontiveros APRN, ANGELLA LAB BODY FLUIDS AND STOO LS ORDERABLES Final Result Performing Organization Address [facility] [place] Co de Phone Number [facility] [address] [place] [address] * Protein - Ascites (09/05/2025 10:26 AM EDT) Total Protein, Fluid 0.8 g/dL 09/05/2025 12:01 PM EDT [facility] Ascites Peritoneal cavity structure / Unknown 09/05/2025 10:26 AM EDT 09/05/2025 10:52 AM EDT Narrative [facility] - 09/05/2025 12:01 PM EDT This test was developed and its performance characteristics determined by [facility]. The U.S. Food and Drug [...] Final Result Performing Organization Address [facility] [place] Co de Phone Number [facility] [address] [place] [address] * (ABNORMAL) Body Fluid Cell Count With Diff - Ascites (09/05/2025 10:26 AM EDT) Color, Body fluid [place] LAB HEMATOLOGY METHOD 09/05/2025 3:29 PM EDT [facility] Appearance, Body fluid Cloudy(A) LAB HEMATOLOGY METHOD 09/05/2025 3:29 PM EDT [facility] Volume, Body fluid 30.0 cc LAB HEMATOLOGY METHOD 09/05/2025 3:29 PM EDT [facility] Fluid Container Specimen received in miscellaneous container LAB HEMATOLOGY METHOD 09/05/2025 3:29 PM EDT [facility] Red Blood Cell Count, Body fluid 6,000 uL LAB HEMATOLOGY METHOD 09/05/2025 3:29 PM EDT [facility] Total Nucleated Cell Count, Body fluid 171 uL LAB HEMATOLOGY METHOD 09/05/2025 3:29 PM EDT [facility] Neutrophils %, Body fluid 1 % LAB HEMATOLOGY METHOD 09/05/2025 3:29 PM EDT [facility] Lymphocytes %, Body fluid 68 % LAB HEMATOLOGY METHOD 09/05/2025 3:29 PM EDT [facility] Monocytes/Macr ophages %, Body fluid 31 % LAB HEMATOLOGY METHOD 09/05/2025 3:29 PM EDT [facility] Eosinophils %, Body fluid 0 % LAB HEMATOLOGY METHOD 09/05/2025 3:29 PM EDT [facility] Lining/Mesothe lial Cells %, Body fluid 0 % LAB HEMATOLOGY METHOD 09/05/2025 3:29 PM EDT [facility] Neutrophils Absolute (PMN), Body fluid 2 uL LAB HEMATOLOGY METHOD 09/05/2025 3:29 PM EDT [facility] Lymphocytes Absolute, Body fluid 116 uL LAB HEMATOLOGY METHOD 09/05/2025 3:29 PM EDT [facility] Monocytes/Macr ophages Absolute, Body fluid 53 uL LAB HEMATOLOGY METHOD 09/05/2025 3:29 PM EDT [facility] Eosinophils Absolute, Body fluid 0 uL LAB HEMATOLOGY METHOD 09/05/2025 3:29 PM EDT [facility] Basophils Absolute, Body fluid 0 uL LAB HEMATOLOGY METHOD 09/05/2025 3:29 PM EDT [facility] Lining/Mesothe lial Cells Absolute, Body fluid 0 uL LAB HEMATOLOGY METHOD 09/05/2025 3:29 PM EDT [facility] Basophils %, Body fluid 0 % LAB HEMATOLOGY METHOD 09/05/2025 3:29 PM EDT [facility] Body Fluid Peritoneal fluid / Unknown Non-blood Collection / Unknown 09/05/2025 10:26 AM EDT 09/05/2025 10:52 AM EDT Maria Dolores Ontiveros APRN, DNP LAB BODY FLUIDS AND STOOLS ORDERABLES NO SPECIMEN TYPE/SOURCE Final Result [facility] [address] [place] [address] documented in this encounter Visit Diagnoses Diagnosis Other ascites Alcoholic cirrhosis of liver with ascites documented in this encounter Administered Medications Inactive Administered Medications - up to 3 most recent administrations Medication Order MAR Action Action Date Dose Rate Site albumin human 25 % infusion 37.5 g 37.5 g, Intravenous, Once as needed, 1 dose, Starting on Sarahi 09/05/25 at 0814, Until Sarahi 09/05/25 at 1146, Routine, Intraprocedure, For 5-6.9 L drained New Bag 09/05/2025 11:46 AM EDT 37.5 g lidocaine 0.9% in sodium bicarbonate (buffered lidocaine) solution solution As needed, Starting on Sarahi 09/05/25 at 1023, Until Sarahi 09/05/25 at 1121, Routine, Intraprocedure Given 09/05/2025 11:21 AM EDT 10 mL Given 09/05/2025 10:23 AM EDT 10 mL documented in this encounter Additional Health Concerns Assessment Noted Time PHQ-9 Depression Total Score: 24 025 8:56 AM EDT A fall risk assessment has been complete d for the patient 06/25/2025 12:59 PM EDT A Body Mass Index follow-up plan has been documented for the patient 09/03/2025 9:58 AM EDT documented as of this encounter Care Teams National Sales Relationship Specialty Start Date End Date Lilile Pritchard MD [address] [phone] PCP - General Family Medicine 09/03/25 Lea Fernando [address] [place] [phone] Turner Machine Operator Endocrinology 08/29/24 Rachel Ray APRN [address] [facility] [address] [place] [address] Nurse Practitioner Gastroenterology 09/24/24 Tamera Isabel LPN VALUE-BASED TRANSFORMATION PROGRAM Licensed Practical Nurse 05/29/25 Shaniqua Trevino LPN TCM Nurse 08/21/25 documented as of this encounter
--- OUTSIDE RECORDS SUMMARY | 2025-09-05 11:54 | XMS_ITS | Encounter Summary ---
Author Organization [facility] Address [address] [place] [address] Care Team Providers Care Unmanned Equipment Operator Name Role Phone Kassie Lea Clarke Unavailable [phone] Rachel Ray TRANSLATION DIRECTOR Unavailable [phone] Tamera Isabel WHITEPRINTING MACHINE OPERATOR Unavailable UnavailShaniqua Lomeli WHITEPRINTING MACHINE OPERATOR Unavailable Unavailable Lillie Pritchard MD Primary Care Provider [phone] Encounter Details Date Type Department Care Team (Latest Contact Info) Description 09/05/2025 11:54 AM EDT - 09/05/2025 11:59 PM EDT Hospital Encounter [facility] [address] [place] [address] Discharge Disposition: Home or Self Care Social [...] 01/10/2025 How often do you attend [facility] or church services? Patient unable to answer 01/10/2025 Do you belong to any clubs o r organizations such as jehovah's witness groups, unions, Convr[employer] or athletic groups, or school groups? Patient [...] any clubs o r organizations such as jehovah's witness groups, unions, fraternal or athletic groups, or [...] more drinks on one occasion? Never 09/03/2025 [facility] - Occupational Stress Questionnaire Answer Date [...] in a jail (including now)? No 08/19/2025 [facility] Utilities Answer Date Recorded In [...] drink first t kennedy in the morning (EYE-CCTV TECHNICIAN) to steady your nerves or to [...] 1 03/01/2025 ergocalciferol (Vitamin D-2) 1.25 MG (05947 UT) capsuleIndication s:Vitamin D deficiency Take 1 [...] Description 09/17/2025 9:45 AM EDT Clinical Support [facility] [address] [facility] [address] [place] [address] 09/17/2025 10:30 AM EDT Social Work [facility] [address] [facility] [address] [place] [address] Lea Reilly, [place] [address] 09/17/2025 11:20 AM EDT Office Visit [facility] [address] [facility] [address] [place] [address] Octavia Herrera, MARIA GUADALUPE [address] [facility] [address] [place] [address] 09/19/2025 10:30 AM EDT Appointment [facility] [address] [place] [address] 09/19/2025 11:30 AM EDT Appointment [facility] [address] [place] [address] 09/26/2025 7:30 AM EST Appointment [facility] [address] [place] [address] 09/26/2025 8:30 AM EST Appointment [facility] [address] [place] [address] 10/01/2025 9:00 AM EST Office Visit [facility] [address] [facility] [place] [phone] Lillie Pritchard MD [address] [place] [address] 10/03/2025 12:30 PM EST Appointment [facility] [address] [place] [address] 10/03/2025 1:30 PM EST Appointment [facility] [address] [place] [address] 12/20/2025 11:00 AM EST Office Visit [facility] [address] [place] [address] Miranda Hobson, TRANSLATION DIRECTOR [address] [facility] [address] [place] [phone] documented as of this encounter Procedures Procedure Name Priority Date/Time Associated Diagnosis Comments XR CHEST 1 VIEW STAT 09/05/2025 12:10 PM EDT documented in this encounter [...] Bari Aguillon MD on 09/05/2025 12:15 PM Maria Dolores Ontiveros APRN, DNP IMG XR [...] documented as of this encounter Care Teams Unmanned Equipment Operator Relationship Specialty Start Date End Date Lillie Pritchard MD [address] [place] [address] PCP - General Family Medicine 09/03/25 Lea Fernando [address] [place] [phone] Bottoming Room Supervisor Endocrinology 08/29/24 Rachel Ray APRN [address] [place] [address] Nurse Practitioner Gastroenterology 09/24/24 Tamera Isabel LPN VALUE-BASED TRANSFORMATION PROGRAM Licensed Practical Nurse 05/29/25 Shaniqua Trevino LPN TCM Nurse 08/21/25 documented as of this encounter
--- OUTSIDE RECORDS SUMMARY | 2025-09-10 06:06 | XMS_ITS | Encounter Summary ---
Author Organization [facility] Address [address] [place] [address] Care Team Providers Care Surfacer Operator Name Role Phone Lea Fernando Unavailable [phone] Rachel Ray COMPLETIONS ENGINEER Unavailable [phone] Tamera Isabel STRAP CUTTER Unavailable UnavailShaniqua Lomeli STRAP CUTTER Unavailable Unavailable Lillie Pritchard MD Primary Care Provider [phone] Reason for Referral * Clinic-Administered Medication (Routine) - Closed Specialty Diagnoses / Procedures Referred By Contac t Referred To Contact Diagnoses Other ascites Procedures ME ABDOM PARACENTESIS DX/THER W IMAGING GUIDANCE Wily Caballero MD [address] [place] [address] Phone: tel: fax: [facility] [address] [place] [address] Phone: tel: fax: Referral ID Status Reason Start Date Expiration Date Visits Re quested Visits Authorized [id number] Closed 09/10/2025 03/12/2027 1 1 * Imaging (Routine) - Closed Specialty Diagnoses / Procedures Referred By Contac t Referred To Contact Radiology Diagnoses Other ascites Procedures US Guided Abdominal Paracentesis Preeti Andersen APRN [address] [place] [address] Phone: tel: fax: Referral ID Status Reason Start Date Expiration Date Visits Re quested Visits Authorized [id number] Closed 09/10/2025 03/12/2027 1 1 * Imaging (Routine) - Closed Specialty Diagnoses / Procedures Referred By Eder zhu Referred To Contact Radiology Diagnoses Other ascites Procedures US Guided Thoracentesis Marianna Gordon APRN [address] [place] [address] Phone: tel: fax: Referral ID Status Reason Start Date Expiration Date Visits Re quested Visits Authorized [id number] Closed 09/05/2025 03/07/2027 1 1 Reason for Visit * Imaging (Routine) - Closed Specialty Diagnoses / Procedures Referred By Eder zhu Referred To Contact Radiology Diagnoses Other ascites Procedures US Guided Thoracentesis Marianna Gordon APRN [address] [place] [address] Phone: tel: fax: Referral ID Status Reason Start Date Expiration Date Visits Re quested Visits Authorized [id number] Closed 09/05/2025 03/07/2027 1 1 Encounter Details Date Type Department Care Team (Latest Contact Info) Description 09/10/2025 6:06 AM EDT - 09/10/2025 9:26 AM EDT Hospital Encounter [facility] Interventional Radiology [address] [place] [address] Tamara Stokes RN [facility] Other ascites Discharge Disposition: Home or Self [...] do you attend chur or druze services? Patient unable to answer 01/10/2025 Do you belong to any clubs o r organizations such as hinduism groups, unions, frahopscout or athletic groups, or school groups? Patient [...] more drinks on one occasion? Never 09/03/2025 [facility] [...] in a retirement (including now)? No 08/19/2025 [facility] Utilities Answer Date Recorded In the past 12 months has [employer], gas, oil, or water company threatened to [...] drink first t kennedy in the morning (E[employer]PER[employer]ENT [employer]IVE) to steady your nerves or to get [...] Sign Reading Time Taken Comments Blood Pressure 107/62 09/10/2025 9:15 AM EDT Pulse 81 09/10/2025 9:15 AM EDT Temperature 36.4 C (97.6 F) 09/10/2025 8:52 AM EDT Respiratory Rate 13 09/10/2025 9:15 AM EDT Oxygen Saturation 91% 09/10/2025 9:15 AM EDT Inhaled Oxygen Concentration - - Weight 80.1 kg (176 lb 9.4 oz) 09/10/2025 6:31 A M EDT Height 165.1 cm (5' 5 ) 09/10/2025 6:31 AM EDT Body Mass Index 29.39 09/10/2025 6:31 AM EDT documented in this encounter Discharge Instructions * Discharge Instructions* Tamara Stokes RN - 09/10/2025 8:29 AM EDT *Interventional Radiology* (IR) Questions/Concerns & Appointments If there are questions or concerns after discharge please call: [facility]iology Clinic at [phone] Tuesday - Tuesday 8:00 AM to 4:30 PM After hours, weekends, and holidays please call [phone] and ask for the Interventional Radiology provider/Resident on-call For Emergencies please go to the nearest Emergency Room or dial 911. Intervention Radiology Appointments: If you need to reschedule a procedure, please call our Schedulers at [phone], option 4. If you need to schedule or reschedule a clinic appointment, please call [phone]. [facility] Interventional [facility]iology [facility] [address] [place] [address] documented in this encounter Medications at Time [...] 1 03/01/2025 ergocalciferol (Vitamin D-2) 1.25 MG (20389 UT) capsuleIndication s:Vitamin D deficiency Take 1 [...] by mouth daily. 90 tablet 1 09/03/2025 documented as of this encounter Miscellaneous Notes * Tamara Dash RN - 09/10/2025 8:29 AM EDT Images from the original note were not included. [address]264 Paracentesis Your healthcare provider recommends that you [...] are taking. This includes all prescription medicines, mvvk-vjg-jkosflc medicines, street drugs, herbs, vitamins, and other [...] fainting Last Reviewed Date: 2025 00:00:00 ?? [id number] [employer]. All rights reserved. This information is not intended as a substitute for professional medical care. Always follow your healthcare professional's instructions. * John Vargas - Tamara Stokes RN - 09/10/2025 8:28 AM EDT Images from the original note were not included. [id number] Discharge Instructions for Thoracentesis Thoracentesis is a [...] blood. Last Reviewed Date: 2025 00:00:00 ?? [id number] [employer]. All rights reserved. This information is not intended as a substitute for professional medical care. Always follow your healthcare professional's instructions. * John Vargas - Tamara Stokes RN - 09/10/2025 8:28 AM EDT Images from the original note were not included. [id number] Pleural Effusion The pleura is a smooth double membrane that surrounds the lungs. It separates the lungs from the chest wall. One side of the pleura attaches to the lung. The other side attaches to the chest wall. This membrane makes it easier for the chest to inflate and deflate as you breathe without rubbing against the ribs. You normally have a small amount of lubricating fluid (pleural fluid) between the pleural membranes. A pleural effusion is when too much fluid collects in the space between the two pleural membranes (pleural space). As the amount of fluid increases, it begins to press on the lung. This makes it harder to take a full breath. There are two types of pleural effusion: ? Exudative. This is caused by extra fluid related to inflammation, injury, infection, or a tumor. Empyema is when pus builds up in the pleural space. ? Transudative. This is caused by abnormal fluid pressures inside the blood vessels. The pressure can be caused by congestive heart failure (CHF). In CHF, extra fluid collects inside the lung tissuesbecause of a weakened heart muscle. This extra fluid then leaks into the pleural space. Pleural effusion may cause any of these symptoms: ? Shortness of breath ? Rapid breathing ? Cough or hiccups ? Sharp chest pain that hurts more with coughing or deep breathing ? Fever ? Fatigue A small pleural effusion may cause no symptoms at all. Treatment will be directed at the cause of the pleural effusion. If you are having a lot of troublebreathing, the healthcare provider may do a thoracentesis procedure to remove the fluid from the pleural space. This involves placing a needle or tube (catheter) through the chest wall into the pleural space. This usually gives relief right away. But the fluid may gradually return, depending on thecause. You may be given antibiotics if your pleural effusion was caused by an infection. Home care Follow these guidelines when caring for yourself at home: ? Rest until you feel better. Exerting yourself may make your symptoms worse. ? Your healthcare provider may have prescribed medicines to treat the underlying cause of the pleural effusion. Take these exactly as directed. Follow-up care Follow up with your healthcare provider, or as advised. When to get medical advice Call your healthcare provider right away if any of these occur: ? Fever of 100.4??F (38??C) or higher, or as directed by your healthcare provider ? Chills ? Dry cough that doesn't get better with treatment ? Generally not feeling well ? Sudden inability to do daily activities Call 911 Call 911 if any of the following occur: ? Shortness of breath gets worse ? Chest pain gets worse ? Chest tightness or heaviness ? Coughing up blood ? Weakness, dizziness, or fainting Last Reviewed Date: 2024 00:00:00 ?? 0822-1348 [employer]. All rights reserved. This information is not intended as a substitute for professional medical care. Always follow your healthcare professional's instructions. * Post-Procedure Note - Preeti Andersen APRN - 09/10/2025 7:30 AM EDT Vascular and Interventional Radiology Brief Postprocedure Note Provider: ADRI Andersen Pre-operative Diagnosis: ascites and right hepatic hydrothorax Post-operative Diagnosis: Type of Anesthesia: Local Description of Findings: See PACS Technical/Surgical Procedures Used: US + paracentesis + thoracentesis Specimen Obtained: YES Complications: None Estimated Blood Loss: none Procedure Events Event Event Time See detailed result report with images in PACS. The patient tolerated the procedure well without incident or complication and is in stable condition. * Interval H&P Note - Preeti Andersen APRN - 09/10/2025 7:30 AM EDT H&P reviewed. The patient was examined and there are no changes to the H&P. Will proceed with paracentesis and thoracentesis. Source Note - Maria Dolores Ontiveros APRN, [...] Systems: Deferred due to patient location at [facility] Past Medical History Pertinent Negatives[1] Surgical History[2] [...] EXAM: Deferred due to patient location at [facility] Radiographics/Diagnostics: Imaging personally reviewed and reviewed with [...] 1:27 PM Final report signed by Golden iJn MD on 08/19/2025 2:43 PM Echo, Adult [...] is no recent study available for direct jjbn-wg-ddai comparison. Assessment & Plan: Decompensated cirrhosis, MASH [...] Lactulose at home, not taking regularly at [facility] - Ascites/hepatic hydrothorax: Routine paracentesis/thoracentesis - Difficulty [...] Maria Dolores Ontiveros APRN, DNP Interventional Radiology [phone] [1] Past Medical History: Diagnosis Date ADHD (attention deficit hyperactivity disorder) Allergic Anxiety disorder, unspecified Anxiety Bleeding gums Blood in urine Cataract Chronic kidney disease Cirrhosis (CMS/HCC) Colon cancer screening 09/20/2019 Added automatically from request for surgery [id number] Coronary artery disease Depression 1996 Diabetes mellitus [...] 1979 BLADDER SURGERY N/A Bladder surgery from [facility] BREAST BIOPSY 2011 BREAST SURGERY 2010 BUNIONECTOMY Right CATARACT EXTRACTION Bilateral 2016 CHOLECYSTECTOMY 1979 ESOPHAGOGASTRODUODENOSCOPY HYSTERECTOMY N/A Hysterectomy from [facility] KNEE SURGERY Bilateral ORAL SURGERY N/A Oral surgery from [facility] OTHER SURGICAL HISTORY 2015 ROOT CANAL WISDOM [...] Description 09/17/2025 9:45 AM EDT Clinical Support [facility] [address] [place] [address] 09/17/2025 10:30 AM EDT Social Work [facility] [address] [place] [address] Lea Reilly, [place] [address] 09/17/2025 11:20 AM EDT Office Visit [facility] [address] [place] [address] Octavia Herrera, MARIA GUADALUPE [address] [facility] [address] [place] [address] 09/19/2025 10:30 AM EDT Appointment [facility] Inter[facility] Radiology [address] [place] [address] 09/19/2025 11:30 AM EDT Appointment [facility]iology [address] [place] [address] 09/26/2025 7:30 AM EST Appointment [facility] [address] [place] [address] 09/26/2025 8:30 AM EST Appointment [facility] [address] [place] [address] 10/01/2025 9:00 AM EST Office Visit [address], [address] [place] [id number] Lillie Pritchard MD [address] [place] [address] 10/03/2025 12:30 PM EST Appointment [facility] [address] [place] [address] 10/03/2025 1:30 PM EST Appointment [facility]iology [address] [place] [address] 12/20/2025 11:00 AM EST Office Visit [facility] [address] [place] [id number] Miranda Hobson, COMPLETIONS ENGINEER [address] [place] [address] documented as of this encounter Procedures Procedure Name Priority Date/Time Associated Diagnosis Comments XR CHEST 1 VIEW STAT 09/10/2025 9:55 AM EDT US GUIDED ABDOMINAL PARACENTESIS Routine 09/10/2025 8:46 AM EDT Other ascites US GUIDED THORACENTESIS Routine 09/10/20 8:46 AM EDT Other ascites TOTAL PROTEIN, PERITONEAL FLUID Routine 09/10/2025 8:11 AM EDT BODY FLUID CELL COUNT W/ MANUAL DIFFERENTIAL Routine 09/10/2025 8:10 AM EDT BODY FLUID, CYTOSPIN, PATHOLOGIST INTERPRETATION Routine 09/10/2025 8:10 AM EDT BODY FLUID CELL COUNT W/ MANUAL DIFFERENTIAL Routine 09/10/2025 7:49 AM EDT TOTAL PROTEIN, PLEURAL FLUID Routine 09/10/2025 7:49 AM EDT LACTATE DEHYDROGENASE, PLEURAL FLUID Routine 09/10/2025 7:49 AM EDT BODY FLUID, CYTOSPIN, PATHOLOGIST INTERPRETATION Routine 09/10/2025 7:49 AM EDT BODY FLUID CULTURE AND GRAM STAIN Routine 09/10/2025 7:49 AM EDT documented in this encounter Results * XR Chest 1 View (09/10/2025 9:55 AM EDT) Anatomical Region Laterality Modality Chest Digital Radiogra phy Impressions 09/10/2025 9:58 AM EDT No pneumothorax. No acute airspace disease. CRITICAL RESULT: No. COMMUNICATION: Per this written report. Drafted by Areli Verduzco MD on 09/10/2025 9:56 AM Final report signed by Areli Verduzco MD on 09/10/2025 9:58 AM Narrative 09/10/2025 9:58 AM EDT CLINICAL INDICATION: s/p thora TECHNIQUE: XR CHEST 1 VIEW COMPARISON: September 05, 2025 FINDINGS: Stable cardiac silhouette. Improved right infrahilar opacities. No new acute focal airspace disease. No pleural effusions or pneumothorax. No acute osseous findings. Procedure Note Areli Verduzco MD - 09/10/2025 CLINICAL INDICATION: s/p thora TECHNIQUE: XR CHEST 1 VIEW COMPARISON: September 05, 2025 FINDINGS: Stable cardiac silhouette. Improved right infrahilar opacities. No newacute focal airspace disease. No pleural effusions or pneumothorax. Noacute osseous findings. IMPRESSION: No pneumothorax. No acute airspace disease. CRITICAL RESULT: No. COMMUNICATION: Per this written report. Drafted by Areli Verduzco MD on 09/10/2025 9:56 AM Final report signed by Areli Verduzco MD on 09/10/2025 9:58 AM us Preeti Andersen COMPLETIONS ENGINEER IMG XR PROCEDURES Final Result * US Guided Abdominal Paracentesis (09/10/2025 8:46 AM EDT) Anatomical Region Laterality Modality Abdomen Ultrasound Impressions 09/10/2025 10:55 AM EDT Technically successful US-guided paracentesis. A total of 2.3 liters of clear yellow fluid was removed A sample of the fluid was sent for laboratory analysis. CRITICAL RESULT: No. COMMUNICATION: Per this written report. Preliminary report signed by SOLANGE Hall on 09/10/2025 10:28 AM By electronically signing this report, I, the attending physician, attest that I was not present for the procedure(s) but agree with the final edited report. Drafted by SOLANGE Hall on 09/10/2025 10:26 AM Final report signed by Wily Mccall MD on 09/10/2025 10:55 AM Narrative 09/10/2025 10:55 AM EDT CLINICAL INDICATION: This is a 64 y.o. 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 TECHNIQUE: Manager Neonatal: ADRI Andersen Secondary Traffic Control Flagger: None. Rad Dose: NA Medications: Continuous physiologic monitoring provided by a qualified healthcare professional. Administered: 1% Lidocaine SQ. Antibiotics: NA Time out: 0754 Procedure: After discussion of risks and benefits, [...] A total of 2.3 liters of clear yellow fluid was removed. The centesis catheter was removed and occlusive dressing applied. The patient tolerated the procedure well. The patient left the IR suite in stable condition. COMPARISON: None. FINDINGS: Moderate volume ascites. COMPLICATION: No. Procedure Note Wily Caballero MD - 09/10/2025 CLINICAL INDICATION: This is a 64 y.o. 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 TECHNIQUE: Manager Neonatal: ADRI Andersen Secondary Traffic Control Flagger: Aparna. Rad Dose: NA Medications: Continuous physiologic monitoring provided by a qualifiedhealthcare professional. Administered: 1% Lidocaine SQ. Antibiotics: NA Time out: 0754 Procedure: After discussion of risks and benefits, [...] to permanentstorage in PACS. A total of 2.3 liters of clear yellow fluid was removed.The centesis catheter was removed and occlusive dressing applied. The patient tolerated the procedure well. The patient left the IR suitein stable condition. COMPARISON: None. FINDINGS: Moderate volume ascites. COMPLICATION: No. IMPRESSION: Technically successful US-guided paracentesis. A total of 2.3 liters of clear yellow fluid was removed A sample of the fluid was sent for laboratory analysis. CRITICAL RESULT: No. COMMUNICATION: Per this written report. Preliminary report signed by SOLANGE Hall on 510:28 AM By electronically signing this report, I, the attending physician, attestthat I was not present for the procedure(s) but agree with the finaledited report. Drafted by SOLANGE Hall on 09/10/2025 10:26 AM Final report signed by Wily Mccall MD on 09/10/2025 10:55 AM us Preeti Andersen APRN IMG US PROCEDURES Final Result * US Guided Thoracentesis (09/10/2025 8:46 AM EDT) Anatomical Region Laterality Modality Chest Ultrasound Impressions 09/10/2025 10:55 AM EDT Technically successful ultrasound guided thoracentesis. A total of 1.6 L of clear yellow fluid was removed. A sample of the fluid was sent for laboratory analysis. CRITICAL RESULT: No. COMMUNICATION: Per this written report. Preliminary report signed by SOLANGE Hall on 09/10/2025 10:36 AM By electronically signing this report, I, the attending physician, attest that I was not present for the procedure(s) but agree with the final edited report. Drafted by SOLANGE Hall on 09/10/2025 10:30 AM Final report signed by Wily Mccall MD on 09/10/2025 10:55 AM Narrative 09/10/2025 10:55 AM EDT CLINICAL INDICATION: This is a 64 y.o. 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 TECHNIQUE: Manager Neonatal: ADRI Andersen Secondary Traffic Control Flagger: None. Rad Dose: NA Medications: Continuous physiologic monitoring provided by a qualified healthcare professional. Administered: 1% Lidocaine SQ. Antibiotics: NA Time out: 0754 Procedure: After discussion of risks and benefits, [...] lidocaine used for local analgesia. Under real ultrasound guidance, a 6 Fr safety-centesis catheter [...] No. Procedure Note Wily Caballero MD - 09/10/2025 CLINICAL INDICATION: This is a 64 y.o. 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 TECHNIQUE: Manager Neonatal: ADRI Andersen Secondary Traffic Control Flagger: None. Rad Dose: NA Medications: Continuous physiologic monitoring provided by a qualifiedhealthcare professional. Administered: 1% Lidocaine SQ. Antibiotics: NA Time out: 0754 Procedure: After discussion of risks and benefits, [...] 1% lidocaine used for localanalgesia. Under real ultrasound guidance, a 6 Fr safety-centesis catheterwas advanced into the pleural fluid. Ultrasound images were sent topermanent storage in PACS. A total of 1.6 L of clear yellow fluid wasremoved. The [...] Preliminary report signed by SOLANGE Hall on 510:36 AM By electronically signing this report, I, the attending physician, attestthat I was not present for the procedure(s) but agree with the finaledited report. Drafted by SOLANGE Hall on 09/10/2025 10:30 AM Final report signed by Wily Mccall MD on 09/10/2025 10:55 AM us Marianna Gordon COMPLETIONS ENGINEER IMG US PROCEDURES Final Resu lt * Protein - Ascites (09/10/2025 8:11 AM EDT) Total Protein, Fluid 0.8 g/dL 09/10/2025 10:[address] [facility] Ascites Peritoneal cavity structure / Unknown 09/10/2025 8:11 AM EDT 09/10/2025 8:[address] [facility] - 09/10/2025 10:10 AM EDT This test was developed and its performance characteristics determined by [facility]. The U.S. Food and Drug Administration has not approved or cleared this test. However, FDA clearance or approval is not currently required for clinical use. The results are not intended to be used as the sole means for clinical diagnosis or patient management decisions. us Preeti Andersen APRN LAB BODY FLUIDS AND STO OLS ORDERABLES Final Result [facility] [address] [place] [address] * Body fluid, cytospin, pathologist interpretation (09/10/2025 8:10 AM EDT) Specimen Type Body Fluid LAB HEMATOLOGY METHOD 09/11/2025 11:[address] [facility] Specimen Source, Body Fluid Peritoneal Fluid LAB HEMATOLOGY METHOD 09/11/2025 11:[address] [facility] Clinical Diagnosis, Body Fluid Ascites LAB HEMATOLOGY METHOD 09/11/2025 11:[address] [facility] Interpretation , Body Fluid No evidence of malignancy. Predominantly chronic inflammatory cells. Moderate to heavy blood. A resident was involved in the service. I attest I examined the relevant preparations for the specimens and confirmed the diagnosis or interpretation. 09/11/2025 11:[address] [facility] Pathologist Signature, Body Fluid 09/11/2025 11:[address] [facility] Comment:Reviewed by: Onur Roque MD LAB CP ASR DISCLAIMER Yes 09/11/2025 11:[address] [facility] Body Fluid Peritoneal fluid / Unknown Non-blood Collection / Unknown 09/10/2025 8:10 AM EDT 09/10/2025 8:25 AM EDT us Preeti Andersen COMPLETIONS ENGINEER LAB BODY FLUIDS AND STO OLS ORDERABLES Final Result [facility] [address] [place] [address] * (ABNORMAL) Body Fluid Cell Count With Diff - Ascites (09/10/2025 8:10 AM EDT) Color, Body fluid [place] LAB HEMATOLOGY METHOD 09/10/2025 1:[address] [facility] Appearance, Body fluid Cloudy(A) LAB HEMATOLOGY METHOD 09/10/2025 1:[address] [facility] Volume, Body fluid 20.0 cc LAB HEMATOLOGY METHOD 09/10/2025 1:[address] [facility] Fluid Container Specimen received in miscellaneous container LAB HEMATOLOGY METHOD 09/10/2025 1:[address] [facility] Red Blood Cell Count, Body fluid 5,000 uL LAB HEMATOLOGY METHOD 09/10/2025 1:[address] [facility] Total Nucleated Cell Count, Body fluid 172 uL LAB HEMATOLOGY METHOD 09/10/2025 1:[address] [facility] Neutrophils %, Body fluid 3 % LAB HEMATOLOGY METHOD 09/10/2025 1:[address] [facility] Lymphocytes %, Body fluid 77 % LAB HEMATOLOGY METHOD 09/10/2025 1:[address] [facility] Monocytes/Macr ophages %, Body fluid 18 % LAB HEMATOLOGY METHOD 09/10/2025 1:[address] [facility] Eosinophils %, Body fluid 0 % LAB HEMATOLOGY METHOD 09/10/2025 1:[address] [facility] Lining/Mesothe lial Cells %, Body fluid 2 % LAB HEMATOLOGY METHOD 09/10/2025 1:[address] [facility] Neutrophils Absolute (PMN), Body fluid 5 uL LAB HEMATOLOGY METHOD 09/10/2025 1:[address] [facility] Lymphocytes Absolute, Body fluid 132 uL LAB HEMATOLOGY METHOD 09/10/2025 1:[address] [facility] Monocytes/Macr ophages Absolute, Body fluid 31 uL LAB HEMATOLOGY METHOD 09/10/2025 1:[address] [facility] [facility] Eosinophils Absolute, Body fluid 0 uL LAB HEMATOLOGY METHOD 09/10/2025 1:[address] [facility] Basophils Absolute, Body fluid 0 uL LAB HEMATOLOGY METHOD 09/10/2025 1:[address] [facility] Lining/Mesothe lial Cells Absolute, Body fluid 3 uL LAB HEMATOLOGY METHOD 09/10/2025 1:[address] [facility] Basophils %, Body fluid 0 % LAB HEMATOLOGY METHOD 09/10/2025 1:[address] [facility] Body Fluid Peritoneal fluid / Unknown Non-blood Collection / Unknown 09/10/2025 8:10 AM EDT 09/10/2025 8:25 AM EDT Preeti Andersen APRN LAB BODY FLUIDS AND STOOLS ORDERABLES NO SPECIMEN TYPE/SOURCE Final Result [facility] [address] [place] [address] * Body fluid, cytospin, pathologist interpretation (09/10/2025 7:49 AM EDT) Specimen Type Body Fluid LAB HEMATOLOGY METHOD 09/11/2025 11:[address] [facility] Specimen Source, Body Fluid Pleural, Right LAB HEMATOLOGY METHOD 09/11/2025 11:[address] [facility] Clinical Diagnosis, Body Fluid Cirrhosis, ascites, right pleural effusion LAB HEMATOLOGY METHOD 09/11/2025 11:[address] [facility] Interpretation , Body Fluid No evidence of malignancy. Predominantly chronic inflammatory cells. Moderate blood. A resident was involved in the service. I attest I examined the relevant preparations for the specimens and confirmed the diagnosis or interpretation. 09/11/2025 11:[address] [facility] Pathologist Signature, Body Fluid 09/11/2025 11:[address] [facility] Comment:Reviewed by: Onur Roque MD LAB CP ASR DISCLAIMER Yes 09/11/2025 11:[address] [facility] Body Fluid Structure of right pleural cavity / Unknown Non-blood Collection / Unknown 09/10/2025 7:49 AM EDT 09/10/2025 9:19 AM EDT us Preeti Andersen COMPLETIONS ENGINEER LAB BODY FLUIDS AND STO OLS ORDERABLES Final Result [facility] [address] [place] [address] * Lactate Dehydrogenase, Pleural Fluid - Right (09/10/2025 7:49 AM EDT) LDH, Fluid 48 U/L 09/10/2025 9:[address] [facility] Pleural Fluid Structure of right pleural cavity / Unknown Non-blood Collection / Unknown 09/10/2025 7:49 AM EDT 09/10/2025 9:[address] [facility] - 09/10/2025 9:55 AM EDT No established reference interval. Results should be interpreted in comparison to the concentration in blood and in conjunction with the clinical context. Pleural fluid LDH and total protein measurements are used for differentiation of exudates and transudates. Light's criteria can be used to identify most pleural exudative effusions if one or more of the following criteria are present: (1) pleural ocpcm-kg-fylwj protein ratio of >0.5, (2) pleural xzxsx-ap-poivt LDH ratio of >0.6, or (3) a pleural fluid LDH activity that is >2/3 the upper limit of a normal serum LDH activity. Light's criteria may misclassify ~25% of transudates as exudates in heart failure. These can be identified by calculating a hghrj-bx-qfaiapl albumin gradient (>1.2 g/dL) and/or a mbwso-ut-wijkb protein gradient (>3.1 g/dL). Preeti Ambar Andersen COMPLETIONS ENGINEER LAB BODY FLUIDS AND STO OLS ORDERABLES Final Result Performing Organization Address [facility] de Phone Number [facility] [address] [place] [address] * Total Protein, Pleural Fluid - Pleural Right (09/10/2025 7:49 AM EDT) Total Protein, Fluid 1.2 g/dL 09/10/2025 9:[address] [facility] Pleural Fluid Structure of right pleural cavity / Unknown Non-blood Collection / Unknown 09/10/2025 7:49 AM EDT 09/10/2025 9:[address] [facility] - 09/10/2025 9:55 AM EDT This test was developed and its performance characteristics determined by [facility]. The U.S. Food and Drug Administration has not approved or cleared this test. However, FDA clearance or approval is not currently required for clinical use. The results are not intended to be used as the sole means for clinical diagnosis or patient management decisions. Preeti Andersen APRN LAB BODY FLUIDS AND STO OLS ORDERABLES Final Result Performing Organization Address [facility] de Phone Number [facility] [address] [place] [address] * Body Fluid Culture and Gram Stain - Pleural Right (09/10/2025 7:49 AM EDT) Culture No growth at day 4 2024 7:[address] [facility] Gram Stain Result Rare Polymorphonuclear leukocytes 09/13/2025 7:[address] [facility] Gram Stain Result No organisms seen 09/13/2025 7:[address] [facility] Pleural Fluid Specimen from pleura obtained by thoracentesis / Unknown Non-blood Collection / Unknown 09/10/2025 7:49 AM EDT 09/10/2025 9:38 AM EDT us Preetilee Andresen COMPLETIONS ENGINEER LAB MICROBIOLOGY - GENE RAL ORDERABLES Final Result [facility] [address] [place] [address] * (ABNORMAL) Body Fluid Cell Count w/ Diff - Pleural Right (09/10/2025 7:49 AM EDT) Color, Body fluid Yellow LAB HEMATOLOGY METHOD 09/10/2025 1:[address] [facility] Appearance, Body fluid Cloudy(A) LAB HEMATOLOGY METHOD 09/10/2025 1:[address] [facility] Volume, Body fluid 8.0 cc LAB HEMATOLOGY METHOD 09/10/2025 1:[address] [facility] Fluid Container Tube 3 LAB HEMATOLOGY METHOD 09/10/2025 1:[address] [facility] Red Blood Cell Count, Body fluid 7,000 uL LAB HEMATOLOGY METHOD 09/10/2025 1:[address] [facility] Total Nucleated Cell Count, Body fluid 182 uL LAB HEMATOLOGY METHOD 09/10/2025 1:[address] [facility] Neutrophils %, Body fluid 3 % LAB HEMATOLOGY METHOD 09/10/2025 1:[address] [facility] Lymphocytes %, Body fluid 85 % LAB HEMATOLOGY METHOD 09/10/2025 1:[address] [facility] Monocytes/Macro phages %, Body fluid 9 % LAB HEMATOLOGY METHOD 09/10/2025 1:[address] [facility] Eosinophils %, Body fluid 0 % LAB HEMATOLOGY METHOD 09/10/2025 1:[address] [facility] Lining/Mesothel ial Cells %, Body fluid 3 % LAB HEMATOLOGY METHOD 09/10/2025 1:[address] [facility] Neutrophils Absolute (PMN), Body fluid 5 uL LAB HEMATOLOGY METHOD 09/10/2025 1:[address] [facility] Lymphocytes Absolute, Body fluid 155 uL LAB HEMATOLOGY METHOD 09/10/2025 1:[address] [facility] Monocytes/Macro phages Absolute, Body fluid 16 uL LAB HEMATOLOGY METHOD 09/10/2025 1:[address] [facility] Eosinophils Absolute, Body fluid 0 uL LAB HEMATOLOGY METHOD 09/10/2025 1:[address] [facility] Basophils Absolute, Body fluid 0 uL LAB HEMATOLOGY METHOD 09/10/2025 1:[address] [facility] Lining/Mesothel ial Cells Absolute, Body fluid 5 uL LAB HEMATOLOGY METHOD 09/10/2025 1:[address] [facility] Comment, Body fluid None LAB HEMATOLOGY METHOD 09/10/2025 1:[address] [facility] Comment:This is an appended report. These results have been appended to a previously preliminary verified report. Basophils %, Body fluid 0 % LAB HEMATOLOGY METHOD 09/10/2025 1:[address] [facility] Body Fluid Structure of right pleural cavity / Unknown Non-blood Collection / Unknown 09/10/2025 7:49 AM EDT 09/10/2025 9:19 AM EDT Preeti Andersen APRN LAB BODY FLUIDS AND STOOLS ORDERABLES NO SPECIMEN TYPE/SOURCE Final Result [facility] [address] [place] [address] documented in this encounter Visit Diagnoses Diagnosis Other ascites documented in this encounter Administered Medications Inactive Administered Medications - up to 3 most recent administrations Medication Order MAR Action Action Date Dose Rate Site albumin human 25 % infusion 37.5 g 37.5 g, Intravenous, Once, 1 dose, On Tue09/10/25 at 0845, Routine, Intraprocedure New Bag 09/10/2025 8:00 AM EDT 37.5 g lidocaine (Xylocaine) 1 % injection Intradermal, As needed, Starting on Tue09/10/25 at 0827, Until Tue09/10/25 at 0827, Routine, Intraprocedure Given 09/10/2025 8:27 AM EDT 10 mL Lenin k documented in this encounter Additional Health Concerns Assessment Noted Time PHQ-9 Depression Total Score: 24 09/03/ 025 8:56 AM EDT A fall risk assessment has been complete d for the patient 06/25/2025 12:59 PM EDT A Body Mass Index follow-up plan has been documented for the patient 09/10/2025 9:29 AM EDT documented as of this encounter Care Teams Surfacer Operator Relationship Specialty Start Date End Date Lillie Pritchard MD [address] [place] [address] PCP - General Family Medicine 09/03/25 Lea Fernando [address] [facility] [address] [place] [address] Janitorial Manager Endocrinology 08/29/24 Rachel Ray APRN [address] [facility] [address] [place] [address] Nurse Practitioner Gastroenterology 09/24/24 Tamera Isabel LPN VALUE-BASED TRANSFORMATION PROGRAM Licensed Practical Nurse 05/29/25 Shaniqua Trevino LPN TCM Nurse 08/21/25 documented as of this encounter
--- OUTSIDE RECORDS SUMMARY | 2025-09-10 09:27 | XMS_ITS | Encounter Summary ---
Author Organization [facility] Address [address] [place] [address] Care Team Providers Care Mill Operator Helper Name Role Phone Kassie Lea Clarke Unavailable [phone] Rachel Ray HEALTH AND SAFETY TRAINER Unavailable [phone] Tamera Isabel TODDLER LEAD TEACHER Unavailable UnavailShaniqua Lomeli TODDLER LEAD TEACHER Unavailable Unavailable Lillie Pritchard MD Primary Care Provider [phone] Encounter Details Date Type Department Care Team (Latest Contact Info) Description 09/10/2025 9:27 AM EDT - 09/10/2025 11:59 PM EDT Hospital Encounter [facility] [address] [place] [address] Discharge Disposition: Home or Self Care Social [...] week 01/10/2025 How often do you attend [facility] or orthodox services? Patient unable to answer 01/10/2025 Do you belong to any clubs o r organizations such as shinto groups, unions, [employer] or athletic groups, or school groups? Patient [...] more drinks on one occasion? Never 09/03/2025 [facility] Questionnaire Answer [...] living in a fdc (including now)? No 08/19/2025 [facility] Util[facility] Answer Date Recorded In the past [...] drink first t kennedy in the morning (EYE-WOOL MIXER) to steady your nerves or to get [...] 1 03/01/2025 ergocalciferol (Vitamin D-2) 1.25 MG (32975 UT) capsuleIndication s:Vitamin D deficiency Take 1 [...] 1 09/03/2025 documented as of this encounter Plan of Treatment Upcoming Encounters Date Type Department Care Team (Late st Contact Info) Description 09/17/2025 9:45 AM EDT Clinical Support [facility] [place] [address] [place] [address] 09/17/2025 10:30 AM EDT Social Work [facility] [place] [address] [facility] [address] [place] [address] Lea Reilly, [place] [address] 09/17/2025 11:20 AM EDT Office Visit [facility] [place] [address] [facility] [address] [place] [address] Octavia Herrera, MARIA GUADALUPE [address] [facility] [address] [place] [address] 09/19/2025 10:30 AM EDT Appointment [facility] [address] [place] [address] 09/19/2025 11:30 AM EDT Appointment [facility] [address] [place] [address] 09/26/2025 7:30 AM EST Appointment [facility] [address] [place] [address] 09/26/2025 8:30 AM EST Appointment [facility] [address] [place] [address] 10/01/2025 9:00 AM EST Office Visit [address], [address] [place] [address] Lillie Pritchard MD [address] [place] [address] 10/03/2025 12:30 PM EST Appointment [facility] [address] [place] [address] 10/03/2025 1:30 PM EST Appointment [facility] [address] [place] [address] 12/20/2025 11:00 AM EST Office Visit [facility] Endocrinology [address] [place] [address] Miranda Hobson, HEALTH AND SAFETY TRAINER [address] [facility] [address] [place] [address] documented as of this encounter Procedures Procedure Name Priority Date/Time Associated Diagnosis Comments XR CHEST 1 VIEW STAT 09/10/2025 9:55 AM EDT documented in this encounter Results [...] Areli Verduzco MD on 09/10/2025 9:58 AM Preeti Andersen HEALTH AND SAFETY TRAINER IMG XR PROCEDURES Final Result documented in [...] documented as of this encounter Care Teams Mill Operator Helper Relationship Specialty Start Date End Date Lillie Pritchard MD [address] [place] [address] PCP - General Family Medicine 09/03/25 Lea Fernando [address] [place] [phone] Equipment Maintenance Technician Endocrinology 08/29/24 Rachel Ray, HEALTH AND SAFETY TRAINER [address] [place] [address] Nurse Practitioner Gastroenterology 09/24/24 Tamera Isabel LPN VALUE-BASED TRANSFORMATION PROGRAM Licensed Practical Nurse 05/29/25 Shaniqua Trevino LPN TCM Nurse 08/21/25 documented as of this encounter
--- OUTSIDE RECORDS SUMMARY | 2025-09-15 01:29 | XMS_ITS | Encounter Summary ---
Author Organization [facility] Address [address] [place] [address] Care Team Providers Care Parimutuel Clerk Name Role Phone Wilma Howard Ambar ROUSEN Primary Care Provider [phone] Lea Fernando Unavailable [phone] Rachel Ray SMALL ANIMAL VETERINARIAN Unavailable [phone] Taina Lyles SMALL ANIMAL VETERINARIAN Primary Care Provider [phone] Monique Tapia LPN Unavailable Unavailable Alvarez Zimmer MD Primary Care Provider [phone] Shaniqua Trevino LPN Unavailable Unavailable Tamera Isabel REAL ESTATE LISTING CONSULTANT Unavailable UnavailAlina Bedolla RN Unavailable Unavailab Monique Che LPN Unavailable Unavailable Shaniqua Trevino LPN Unavailable Unavailable Lillie Pritchard MD Primary Care Provider [phone] Encounter Details Date Type Department Care Team (Late st Contact Info) Description 05/23/2024 Orders Only External Location [address] [place] [phone] Provider, External Social History Tobacco Use Types [...] Support [facility] [address] [place] [address] 09/17/2025 10:30 [address] EDT [address] Work [facility] [place] [address] [place] [address] Lea Reilly, [place] [address] 09/17/2025 11:20 AM EDT Office Visit [facility] [address] [place] [address] Octavia Herrera, MARIA GUADALUPE [address] [place] [address] 09/19/2025 10:30 AM EDT Appointment [facility] [address] [place] [address] 09/19/2025 11:30 AM EDT Appointment [facility] [address] [place] [address] 09/26/2025 7:30 AM EST Appointment [facility] [address] [place] [address] 09/26/2025 8:30 AM EST Appointment [facility] [address] [place] [address] 10/01/2025 9:00 AM EST Office Visit [address], [address] [place] [address] Lillie Pritchard MD [address] [place] [id number] 10/03/2025 12:30 PM EST Appointment [facility] [address] [place] [address] 10/03/2025 1:30 PM EST Appointment [facility] [address] [place] [address] 12/20/2025 11:00 AM EST Office Visit [facility] Endocrinology [address] [place] [address] Miranda Hobson, SMALL ANIMAL VETERINARIAN [address] [place] [address] documented as of this encounter Procedures Procedure Name Priority Date/Time Associated Diagnosis Comments XR ABDOMEN OUTSIDE IMAGES 05/23/2024 12:10 PM EDT documented in this encounter Results * XR ABDOMEN OUTSIDE IMAGES (05/23/2024 12:10 PM EDT) Anatomical Region Laterality Modality Radiographic Mariposa ging 05/23/2024 12:1 0 PM EDT External Provider IMG XR PROCEDURES Final Result [...] documented as of this encounter Care Teams Parimutuel Clerk Relationship Specialty Start Date End Date Wilma Howard, SMALL ANIMAL VETERINARIAN [address] [place] [address] [place] [address] PCP - General 04/03/21 09/30/24 Taina Lyles, SMALL ANIMAL VETERINARIAN [address] [place] [address] [place] [address] PCP - General 10/01/24 12/06/24 Alvarez Zimmer MD [address] [place] [address] PCP - General Family Medicine 12/07/24 09/02/25 Lillie Pritchard MD [address] [place] [id number] PCP - General Family Medicine 09/03/25 Lea Fernando [address] [facility] [address] [place] [address] Utility Worker Production Endocrinology 08/29/24 Rachel Ray, SMALL ANIMAL VETERINARIAN [address] [place] [address] Nurse Practitioner Gastroenterology 09/24/24 Monique Tapia LPN VALUE-BASED [place] [address] TCM Nurse 11/28/24 12/28/24 Shaniqua Trevino LPN TCM Nurse 01/15/25 02/14/25 Tamera Isabel LPN VALUE-BASED TRANSFORMATION PROGRAM Licensed Practical Nurse 05/29/25 Alina Lovett, RN [facility] INTERVENTIONAL RADIOLOGY Registered Nurse 06/26/25 06/26/25 Monique Tapia LPN VALUE-BASED [place] [address] TCM Nurse 07/10/25 08/09/25 Shaniqua Trevino LPN TCM Nurse 08/21/25 documented as of this encounter
--- OUTSIDE RECORDS SUMMARY | 2025-09-15 01:29 | XMS_ITS | Encounter Summary ---
Author Organization [facility] Address [address] [place] [address] Care Team Providers Care Roll Dough Divider Name Role Phone Wilma Howard Ambar ROUSEN Primary Care Provider [phone] Lea Fernando Unavailable [phone] Rachel Ray SPORTS STATISTICIAN Unavailable [phone] Taina Lyles SPORTS STATISTICIAN Primary Care Provider [phone] Monique Tapia LPN Unavailable Unavailable Alvarez Zimmer MD Primary Care Provider [phone] Shaniqua Trevino LPN Unavailable Unavailable Tamera Isabel ECHOMETER ENGINEER Unavailable UnavailAlina Bedolla RN Unavailable Unavailab Monique Che LPN Unavailable Unavailable Shaniqua Trevino LPN Unavailable Unavailable Lillie Pritchard MD Primary Care Provider [phone] Encounter Details Date Type Department Care Team (Late st Contact Info) Description 09/14/2024 Orders Only External Location [address] [place] [phone] Provider, External Social History Tobacco Use Types [...] in a chcf (including now)? Yes 08/29/2024 Education Answer Date [...] Description 09/17/2025 9:45 AM EDT Clinical Support [facility] [address] [place] [address] 09/17/2025 10:30 AM EDT Social Work [facility] [address] [place] [address] Lea Reilly, [place] [address] 09/17/2025 11:20 AM EDT Office Visit [facility] [address] [place] [address] Octavia Herrera, PA [address] [place] [address] 09/19/2025 10:30 AM EDT Appointment [facility] [address] [place] [address] 09/19/2025 11:30 AM EDT Appointment [facility] [address] [place] [address] 09/26/2025 7:30 AM EST Appointment [facility] [address] [place] [address] 09/26/2025 8:30 AM EST Appointment [facility] [address] [place] [address] 10/01/2025 9:00 AM EST Office Visit [facility] [address] [place] [address] Lillie Pritchard MD [address] [place] [address] 10/03/2025 12:30 PM EST Appointment [facility] [address] [place] [address] 10/03/2025 1:30 PM EST Appointment [facility] [address] [place] [address] 12/20/2025 11:00 AM EST Office Visit [facility] [address] [place] [address] Miranda Hobson, SPORTS STATISTICIAN [address] [place] [address] documented as of this encounter Procedures Procedure Name Priority Date/Time Associated Diagnosis Comments XR THORACIC OUTSIDE IMAGES 09/14/2024 9:57 AM EDT documented in this encounter Results * XR THORACIC OUTSIDE IMAGES (09/14/2024 9:57 AM EDT) Anatomical Region Laterality Modality Radiographic Mariposa ging 09/14/2024 9:57 AM EDT External Provider IMG XR PROCEDURES Final [...] documented as of this encounter Care Teams Roll Dough Divider Relationship Specialty Start Date End Date Wilma Howard APRN [address] [place] [address] [place] [address] PCP - General 04/03/21 09/30/24 Taina Lyles APRN [address] [place] [address] [place] [address] PCP - General 10/01/24 12/06/24 Alvarez Zimmer MD [address] [place] [address] PCP - General Family Medicine 12/07/24 09/02/25 Lillie Pritchard MD [address] [place] [address] PCP - General Family Medicine 09/03/25 Lea Fernando [address] [place] [address] Bookkeeper Endocrinology 08/29/24 Rachel Ray APRN [address] [place] [address] Nurse Practitioner Gastroenterology 09/24/24 Monique Tapia LPN VALUE-BASED [place] [address] TCM Nurse 11/28/24 12/28/24 Shaniqua Trevino LPN TCM Nurse 01/15/25 02/14/25 Tamera Isabel LPN VALUE-BASED TRANSFORMATION PROGRAM Licensed Practical Nurse 05/29/25 Alina Lovett, RN [facility]-VASCULAR [facility] INTERVENTIONAL RADIOLOGY Registered Nurse 06/26/25 06/26/25 Monique Tapia LPN VALUE-BASED [place] [address] TCM Nurse 07/10/25 08/09/25 Shaniqua Trevino LPN TCM Nurse 08/21/25 documented as of this encounter
--- OUTSIDE RECORDS SUMMARY | 2025-09-15 01:29 | XMS_ITS | Encounter Summary ---
Author Organization [facility] Address [address] [place] [address] Care Team Providers Care Senior Online Marketing Manager Name Role Phone Wilma Howard Ambar ROUSEN Primary Care Provider [phone] Lea Fernando Unavailable [phone] Rachel Ray WELDER TOOL AND DIE Unavailable [phone] Taina Lyles WELDER TOOL AND DIE Primary Care Provider [phone] Monique Tapia LPN Unavailable Unavailable Alvarez Zimmer MD Primary Care Provider [phone] Shaniqua Trevino LPN Unavailable Unavailable Tamera Isabel WRECKING CAR DRIVER Unavailable UnavailAlina Bedolla RN Unavailable Unavailab Monique Che LPN Unavailable Unavailable Shaniqua Trevino LPN Unavailable Unavailable Lillie Pritchard MD Primary Care Provider [phone] Encounter Details Date Type Department Care Team (Late st Contact Info) Description 07/17/2024 Orders Only External Location [address] [place] [id number] Provider, External Social History Tobacco Use Types [...] Description 09/17/2025 9:45 AM EDT Clinical Support [facility] [address] [place] [address] 09/17/2025 10:30 AM EDT Social Work [facility] [address] [place] [address] Lea Reilly, [place] [address] 09/17/2025 11:20 AM EDT Office Visit [facility] [address] [place] [address] Octavia Herrera, MARIA GUADALUPE [address] [place] [address] 09/19/2025 10:30 AM EDT Appointment [facility] [address] [place] [address] 09/19/2025 11:30 AM EDT Appointment [facility] [address] [place] [address] 09/26/2025 7:30 AM EST Appointment [facility] [address] [place] [address] 09/26/2025 8:30 AM EST Appointment [facility] [address] [place] [address] 10/01/2025 9:00 AM EST Office Visit [address], [address] [place] [address] Lillie Pritchard MD [address] [place] [address] [id number] 10/03/2025 12:30 PM EST Appointment [facility] [address] [place] [address] 10/03/2025 1:30 PM EST Appointment [facility] [address] [place] [address] 12/20/2025 11:00 AM EST Office Visit [facility] Endocrinology [address] [place] [address] Miranda Hobson, WELDER TOOL AND DIE [address] [place] [address] documented as of this encounter Procedures Procedure Name Priority Date/Time Associated Diagnosis Comments CT OUTSIDE IMAGES 07/17/2024 11:21 AM EDT documented in this encounter Results * CT OUTSIDE IMAGES (07/17/2024 11:21 AM EDT) Anatomical Region Laterality Modality Computed Tomogra phy 07/17/2024 11:2 1 AM EDT External Provider IMG CT PROCEDURES Final [...] as of this encounter Care Teams Senior Online Marketing Manager Relationship Specialty Start Date End Date Wilma Howard, WELDER TOOL AND DIE [address] [place] [address] [place] [address] PCP - General 04/03/21 09/30/24 Taina Lyles, WELDER TOOL AND DIE [address] [place] [address] [place] [address] PCP - General 10/01/24 12/06/24 Alvarez Zimmer MD [address] [place] [address] PCP - General Family Medicine 12/07/24 09/02/25 Lillie Pritchard MD [address] [place] [address] [id number] PCP - General Family Medicine 09/03/25 Lea Fernando [address] [facility] [address] [place] [address] Driver Endocrinology 08/29/24 Rachel Ray, WELDER TOOL AND DIE [address] [place] [address] Nurse Practitioner Gastroenterology 09/24/24 Monique Tapia LPN VALUE-BASED [place] [address] TCM Nurse 11/28/24 12/28/24 Shaniqua Trevino LPN TCM Nurse 01/15/25 02/14/25 Tamera Isabel LPN VALUE-BASED TRANSFORMATION PROGRAM Licensed Practical Nurse 05/29/25 Alina Lovett, RN CH-VASCULAR & INTERVENTIONAL RADIOLOGY Registered Nurse 06/26/25 06/26/25 Monique Tapia LPN VALUE-BASED [place] [address] TCM Nurse 07/10/25 08/09/25 Shaniqua Trevino LPN TCM Nurse 08/21/25 documented as of this encounter
--- OUTSIDE RECORDS SUMMARY | 2025-09-15 01:29 | XMS_ITS | Encounter Summary ---
Author Organization [facility] Address [address] [place] [address] Care Team Providers Care Java Web Developer Name Role Phone Wilma Howard Ambar ROUSEN Primary Care Provider [phone] Lea Fernando Unavailable [phone] Rachel Ray WHEEL BLOCKER Unavailable [phone] Taina Lyles WHEEL BLOCKER Primary Care Provider [phone] Monique Tapia LPN Unavailable Unavailable Alvarez Zimmer MD Primary Care Provider [phone] Shaniqua Trevino LPN Unavailable Unavailable Tamera Isabel FINANCIAL ANALYST INTERN Unavailable UnavailAlina Bedolla RN Unavailable Unavailab Monique Che LPN Unavailable Unavailable Shaniqua Trevino LPN Unavailable Unavailable Lillie Pritchard MD Primary Care Provider [phone] Encounter Details Date Type Department Care Team (Late st Contact Info) Description 07/14/2024 Orders Only External Location [address] [place] [phone] Provider, External Social History Tobacco Use Types [...] Description 09/17/2025 9:45 AM EDT Clinical Support [facility] [address] [place] [address] 09/17/2025 10:30 AM EDT Social Work [facility] [place] [address] [place] [address] Lea Reilly, [place] [address] 09/17/2025 11:20 AM EDT Office Visit [facility] [address] [place] [address] Octavia Herrera, MARIA GUADALUPE [address] [place] [address] 09/19/2025 10:30 AM EDT Appointment [facility] [address] [place] [address] 09/19/2025 11:30 AM EDT Appointment [facility] [address] [place] [address] 09/26/2025 7:30 AM EST Appointment [facility] [address] [place] [address] 09/26/2025 8:30 AM EST Appointment [facility] [address] [place] [address] 10/01/2025 9:00 AM EST Office Visit [address], [address] [place] [address] Lillie Pritchard MD [address] [place] [address] [id number] 10/03/2025 12:30 PM EST Appointment [facility] [address] [place] [address] 10/03/2025 1:30 PM EST Appointment [facility] [address] [place] [address] 12/20/2025 11:00 AM EST Office Visit [facility] Endocrinology [address] [place] [address] Miranda Hobson, WHEEL BLOCKER [address] [place] [address] documented as of this encounter [...] documented as of this encounter Care Teams Java Web Developer Relationship Specialty Start Date End Date Wilma Howard, WHEEL BLOCKER [address] [place] [address] [place] [address] PCP - General 04/03/21 09/30/24 Taina Lyles APRN [address] [place] [address] [place] [address] PCP - General 10/01/24 12/06/24 Alvarez Zimmer MD [address] [place] [address] PCP - General Family Medicine 12/07/24 09/02/25 Lillie Pritchard MD [address] [place], [place] [id number] PCP - General Family Medicine 09/03/25 Lea Fernando [address] [facility] [address] [place] [address] Workers Compensation Consultant Endocrinology 08/29/24 Rachel Ray, WHEEL BLOCKER [address] [place] [address] Nurse Practitioner Gastroenterology 09/24/24 Monique Tapia LPN VALUE-[place]ED [place] [address] TCM Nurse 11/28/24 12/28/24 Shaniqua Trevino LPN TCM Nurse 01/15/25 02/14/25 Tamera Isabel LPN VALUE-BASED TRANSFORMATION PROGRAM Licensed Practical Nurse 05/29/25 Alina Lovett, RN CH-VASCULAR & INTERVENTIONAL RADIOLOGY Registered Nurse 06/26/25 06/26/25 Monique Tapia LPN VALUE-[place] [address] TCM Nurse 07/10/25 08/09/25 Shaniqua Trevino LPN TCM Nurse 08/21/25 documented as of this encounter
--- OUTSIDE RECORDS SUMMARY | 2025-09-15 01:30 | XMS_ITS | Encounter Summary ---
Author Organization [facility] Address [address] [place] [address] Care Team Providers Care Riveter Hand Name Role Phone Wilma Howard Ambar ROUSEN Primary Care Provider [phone] Lea Fernando Unavailable [phone] Rachel Ray CLINICAL DATA MANAGEMENT DIRECTOR Unavailable [phone] Taina Lyles CLINICAL DATA MANAGEMENT DIRECTOR Primary Care Provider [phone] Monique Tapia LPN Unavailable Unavailable Alvarez Zimmer MD Primary Care Provider [phone] Shaniqua Trevino LPN Unavailable Unavailable Tamera Isabel OXYGEN EQUIPMENT TECHNICIAN Unavailable UnavailAlina Bedolla RN Unavailable Unavailab Monique Che LPN Unavailable Unavailable Shaniqua Trevino LPN Unavailable Unavailable Lillie Pritchard MD Primary Care Provider [phone] Encounter Details Date Type Department Care Team (Late st Contact Info) Description 02/08/2024 Orders Only External Location [address] [place] [phone] Provider, External Social History Tobacco Use Types [...] Description 09/17/2025 9:45 AM EDT Clinical Support [facility] [address] [place] [address] 09/17/2025 10:30 AM EDT Social Work [facility] [place] [address] [place] [address] Lea Reilly, [place] [address] 09/17/2025 11:20 AM EDT Office Visit [facility] [place] [address] [place] [address] Octavia Herrera, MARIA GUADALUPE [address] [place] [address] 09/19/2025 10:30 AM EDT Appointment [facility] [address] [place] [address] 09/19/2025 11:30 AM EDT Appointment [facility] [address] [place] [address] 09/26/2025 7:30 AM EST Appointment [facility] [address] [place] [address] 09/26/2025 8:30 AM EST Appointment [facility] [address] [place] [address] 10/01/2025 9:00 AM EST Office Visit [address], [address] [place] [address] Lillie Pritchard MD [address] [place] [id number] 10/03/2025 12:30 PM EST Appointment [facility] [address] [place] [address] 10/03/2025 1:30 PM EST Appointment [facility] [address] [place] [address] 12/20/2025 11:00 AM EST Office Visit [facility] Endocrinology [address] [place] [address] Miranda Hobson, CLINICAL DATA MANAGEMENT DIRECTOR [address] [place] [address] documented as of this encounter Procedures Procedure Name Priority Date/Time Associated Diagnosis Comments CT OUTSIDE IMAGES 02/08/2024 11:09 PM EDT documented in this encounter Results * CT OUTSIDE IMAGES (02/08/2024 11:09 PM EDT) Anatomical Region Laterality Modality Computed Tomogra phy 02/08/2024 11:0 9 PM EDT External Provider IMG CT PROCEDURES [...] documented as of this encounter Care Teams Riveter Hand Relationship Specialty Start Date End Date Wilma Howard, CLINICAL DATA MANAGEMENT DIRECTOR [address] [place] [address] [place] [address] PCP - General 04/03/21 09/30/24 Taina Lyles APRN [address] [place] [address] [place] [address] PCP - General 10/01/24 12/06/24 Alvarez Zimmer MD [address] [place] [address] PCP - General Family Medicine 12/07/24 09/02/25 Lillie Pritchard MD [address] [place], [place] [phone] PCP - General Family Medicine 09/03/25 Lea Fernando [address] [facility] [address] [place] [address] Landscape Architect Endocrinology 08/29/24 Rachel Ray, CLINICAL DATA MANAGEMENT DIRECTOR [address] [place] [address] Nurse Practitioner Gastroenterology 09/24/24 Monique Tapia LPN VALUE-BASED [place] [address] TCM Nurse 11/28/24 12/28/24 Shaniqua Trevino LPN TCM Nurse 01/15/25 02/14/25 Tamera Isabel LPN VALUE-BASED TRANSFORMATION PROGRAM Licensed Practical Nurse 05/29/25 Alina Lovett, RN CH-VASCULAR & INTERVENTIONAL RADIOLOGY Registered Nurse 06/26/25 06/26/25 Monique Tapia LPN VALUE-BASED [place] [address] TCM Nurse 07/10/25 08/09/25 Shaniqua Trevino LPN TCM Nurse 08/21/25 documented as of this encounter
--- OUTSIDE RECORDS SUMMARY | 2025-09-15 01:30 | XMS_ITS | Encounter Summary ---
Author Organization [facility] Address [address] [place] [address] Care Team Providers Care Medical Assisting Instructor Name Role Phone Wilma Howard Ambar ROUSEN Primary Care Provider [phone] Lea Fernando Unavailable [phone] Rachel Ray CREDIT AND COLLECTIONS REPRESENTATIVE Unavailable [phone] Taina Lyles CREDIT AND COLLECTIONS REPRESENTATIVE Primary Care Provider [phone] Monique Tapia LPN Unavailable Unavailable Alvarez Zimmer MD Primary Care Provider [phone] Shaniqua Trevino LPN Unavailable Unavailable Tamera Isabel MONUMENT INSTALLER Unavailable UnavailAlina Bedolla RN Unavailable Unavailab Monique Che LPN Unavailable Unavailable Shaniqua Trevino LPN Unavailable Unavailable Lillie Pritchard MD Primary Care Provider [phone] Encounter Details Date Type Department Care Team (Late st Contact Info) Description 02/02/2024 Orders Only External Location [address] [place] [id number] Provider, External Social History Tobacco Use Types [...] EDT Clinical Support [facility] [address] [place] [address] 09/17/2025 10:30 AM EDT Social Work [facility] [address] [place] [address] Lea Reilly, [place] [address] 09/17/2025 11:20 AM EDT Office Visit [facility] [address] [place] [address] Octavia Herrera, MARIA GUADALUPE [address] [place] [address] 09/19/2025 10:30 AM EDT Appointment [facility] [address] [place] [address] 09/19/2025 11:30 AM EDT Appointment [facility] [address] [place] [address] 09/26/2025 7:30 AM EST Appointment [facility] [address] [place] [address] 09/26/2025 8:30 AM EST Appointment [facility] [address] [place] [address] 10/01/2025 9:00 AM EST Office Visit [address], [address] [place] [address] Lillie Pritchard MD [address] [place] [id number] 10/03/2025 12:30 PM EST Appointment [facility] [address] [place] [address] 10/03/2025 1:30 PM EST Appointment [facility] [address] [place] [address] 12/20/2025 11:00 AM EST Office Visit [facility] Endocrinology [address] [place] [address] Miranda Hobson, CREDIT AND COLLECTIONS REPRESENTATIVE [address] [place] [address] documented as of this encounter Procedures Procedure Name Priority Date/Time Associated Diagnosis Comments XR THORACIC OUTSIDE IMAGES 02/02/2024 10:06 AM EDT documented in this encounter Results * XR THORACIC OUTSIDE IMAGES (02/02/2024 10:06 AM EDT) Anatomical Region Laterality Modality Radiographic Mariposa ging 02/02/2024 10:0 6 AM EDT External Provider IMG XR PROCEDURES [...] as of this encounter Care Teams Medical Assisting Instructor Relationship Specialty Start Date End Date Wilma Howard, CREDIT AND COLLECTIONS REPRESENTATIVE [address] [place] [address] [place] [address] PCP - General 04/03/21 09/30/24 Taina Lyles APRN [address] [place] [address] [place] [address] PCP - General 10/01/24 12/06/24 Alvarez Zimmer MD [address] [place] [address] PCP - General Family Medicine 12/07/24 09/02/25 Lillie Pritchard MD [address] [place], [place] [phone] PCP - General Family Medicine 09/03/25 Lea Fernando [address] [facility] [address] [place] [address] Pain Management Nurse Practitioner Endocrinology 08/29/24 Rachel Ray, CREDIT AND COLLECTIONS REPRESENTATIVE [address] [place] [address] Nurse Practitioner Gastroenterology 09/24/24 Monique Tapia LPN VALUE-BASED [place] [address] TCM Nurse 11/28/24 12/28/24 Shaniqua Trevino LPN TCM Nurse 01/15/25 02/14/25 Tamera Isabel LPN VALUE-BASED TRANSFORMATION PROGRAM Licensed Practical Nurse 05/29/25 Alina Lovett, RN CH-VASCULAR & INTERVENTIONAL RADIOLOGY Registered Nurse 06/26/25 06/26/25 Monique Tapia LPN VALUE-BASED [place] [address] TCM Nurse 07/10/25 08/09/25 Shaniqua Trevino LPN TCM Nurse 08/21/25 documented as of this encounter
--- OUTSIDE RECORDS SUMMARY | 2025-09-15 01:30 | XMS_ITS | Encounter Summary ---
Author Organization [facility] Address [address] [place] [address] Care Team Providers Care Client Business Manager Name Role Phone Wilma Howard Ambar ROUSEN Primary Care Provider [phone] Lea Fernando Unavailable [phone] Rachel Ray SENIOR SHAREPOINT ARCHITECT Unavailable [phone] Taina Lyles SENIOR SHAREPOINT ARCHITECT Primary Care Provider [phone] Monique Tapia LPN Unavailable Unavailable Alvarez Zimmer MD Primary Care Provider [phone] Shaniqua Trevino LPN Unavailable Unavailable Tamera Isabel YEAST TENDER Unavailable UnavailAlina Bedolla RN Unavailable Unavailab Monique Che LPN Unavailable Unavailable Shaniqua Trevino LPN Unavailable Unavailable Lillie Pritchard MD Primary Care Provider [phone] Encounter Details Date Type Department Care Team (Late st Contact Info) Description 02/08/2024 Orders Only External Location [address] [place] [phone] Provider, External Social History Tobacco Use Types [...] Description 09/17/2025 9:45 AM EDT Clinical Support [facility] [address] [place] [address] 09/17/2025 10:30 AM EDT Social Work [facility] [place] [address] [place] [address] eLa Reilly, [place] [address] 09/17/2025 11:20 AM EDT Office Visit [facility] [place] [address] [place] [address] Octavia Herrera, MARIA GUADALUPE [address] [place] [address] 09/19/2025 10:30 AM EDT Appointment [facility] [address] [place] [address] 09/19/2025 11:30 AM EDT Appointment [facility] [address] [place] [address] 09/26/2025 7:30 AM EST Appointment [facility] [address] [place] [address] 09/26/2025 8:30 AM EST Appointment [facility] [address] [place] [address] 10/01/2025 9:00 AM EST Office Visit [address] [place] [address] Lillie Pritchard MD [address] [place] [id number] 10/03/2025 12:30 PM EST Appointment [facility] [address] [place] [address] 10/03/2025 1:30 PM EST Appointment [facility] [address] [place] [address] 12/20/2025 11:00 AM EST Office Visit [facility] Endocrinology [address] [place] [address] Mirnada Hobson, SENIOR SHAREPOINT ARCHITECT [address] [place] [address] documented as of this encounter Procedures Procedure Name Priority Date/Time Associated Diagnosis Comments XR THORACIC OUTSIDE IMAGES 02/08/2024 10:11 PM EDT documented in this encounter Results * XR THORACIC OUTSIDE IMAGES (02/08/2024 10:11 PM EDT) Anatomical Region Laterality Modality Radiographic Mariposa ging 02/08/2024 10:1 1 PM EDT External Provider IMG XR PROCEDURES [...] documented as of this encounter Care Teams Client Business Manager Relationship Specialty Start Date End Date Wilma Howard, SENIOR SHAREPOINT ARCHITECT [address] [place] [address] [place] [address] PCP - General 04/03/21 09/30/24 Taina Lyles APRN [address] [place] [address] [place] [address] PCP - General 10/01/24 12/06/24 Alvarez Zimmer MD [address] [place] [address] PCP - General Family Medicine 12/07/24 09/02/25 Lillie Pritchard MD [address] [place], [place] [phone] PCP - General Family Medicine 09/03/25 Lea Fernando [address] [facility] [address] [place] [address] Head Banquet Waiter/Waitress Endocrinology 08/29/24 Rachel Ray, SENIOR SHAREPOINT ARCHITECT [address] [place] [address] Nurse Practitioner Gastroenterology 09/24/24 Monique Tapia LPN VALUE-BASED [place] [address] TCM Nurse 11/28/24 12/28/24 Shaniqua Trevino LPN TCM Nurse 01/15/25 02/14/25 Tamera Isabel LPN VALUE-BASED TRANSFORMATION PROGRAM Licensed Practical Nurse 05/29/25 Alina Lovett, RN CH-VASCULAR & INTERVENTIONAL RADIOLOGY Registered Nurse 06/26/25 06/26/25 Monique Tapia LPN VALUE-[place] [address] TCM Nurse 07/10/25 08/09/25 Shaniqua Trevino LPN TCM Nurse 08/21/25 documented as of this encounter
--- OUTSIDE RECORDS SUMMARY | 2025-09-15 01:30 | XMS_ITS | Encounter Summary ---
Author Organization [facility] Address [address] [place] [address] Care Team Providers Care Cardiovascular Sonographer Name Role Phone Wilma Howard Ambar ROUSEN Primary Care Provider [phone] Lea Fernando Unavailable [phone] Rachel Ray SECOND WORKER Unavailable [phone] Taina Lyles SECOND WORKER Primary Care Provider [phone] Monique Tapia LPN Unavailable Unavailable Alvarez Zimmer MD Primary Care Provider [phone] Shaniqua Trevino LPN Unavailable Unavailable Tamera Isabel LODE MINER Unavailable UnavailAlina Bedolla RN Unavailable Unavailab Monique Che LPN Unavailable Unavailable Shaniqua Trevino LPN Unavailable Unavailable Lillie Pritchard MD Primary Care Provider [phone] Encounter Details Date Type Department Care Team (Late st Contact Info) Description 01/18/2024 Orders Only External Location [address] [place] [id number] Provider, External Social History Tobacco Use Types [...] Description 09/17/2025 9:45 AM EDT Clinical Support [facility] [address] [place] [address] 09/17/2025 10:30 AM EDT Social Work [facility] [place] [address] [place] [address] Lea Reilly, [place] [address] 09/17/2025 11:20 AM EDT Office Visit [facility] [place] [address] [place] [address] Octavia Herrera, MARIA GUADALUPE [address] [place] [address] 09/19/2025 10:30 AM EDT Appointment [facility] [address] [place] [address] 09/19/2025 11:30 AM EDT Appointment [facility] [address] [place] [address] 09/26/2025 7:30 AM EST Appointment [facility] [address] [place] [address] 09/26/2025 8:30 AM EST Appointment [facility] [address] [place] [address] 10/01/2025 9:00 AM EST Office Visit [address], [address] [place] [address] Lillie Pritchard MD [address] [place] [id number] 10/03/2025 12:30 PM EST Appointment [facility] [address] [place] [address] 10/03/2025 1:30 PM EST Appointment [facility] [address] [place] [address] 12/20/2025 11:00 AM EST Office Visit [facility] Endocrinology [address] [place] [address] Miranda Hobson, SECOND WORKER [address] [place] [address] documented as of this encounter Procedures Procedure Name Priority Date/Time Associated Diagnosis Comments XR ABDOMEN OUTSIDE IMAGES 01/18/2024 1:25 PM EST documented in this encounter Results * XR ABDOMEN OUTSIDE IMAGES (01/18/2024 1:25 PM EST) Anatomical Region Laterality Modality Radiographic Mariposa ging 01/18/2024 1:25 PM EST External Provider IMG XR PROCEDURES Final Result [...] documented as of this encounter Care Teams Cardiovascular Sonographer Relationship Specialty Start Date End Date Wilma Howard, SECOND WORKER [address] [place] [address] [place] [address] PCP - General 04/03/21 09/30/24 Taina Lyles APRN [address] [place] [address] [place] [address] PCP - General 10/01/24 12/06/24 Alvarez Zimmer MD [facility] [place] [address] PCP - General Family Medicine 12/07/24 09/02/25 Lillie Pritchard MD [address] [place], [place] [phone] PCP - General Family Medicine 09/03/25 Lea Fernando [address] [facility] [address] [place] [address] [employer] Endocrinology 08/29/24 Rachel Ray, SECOND WORKER [address] [place] [address] Nurse Practitioner Gastroenterology 09/24/24 Monique Tapia LPN VALUE-[employer]ED [place] [address] TCM Nurse 11/28/24 12/28/24 Shaniqua Trevino LPN TCM Nurse 01/15/25 02/14/25 Tamera Isabel LPN VALUE-BASED TRANSFORMATION PROGRAM Licensed Practical Nurse 05/29/25 Alina Lovett, RN CH-VASCULAR & INTERVENTIONAL RADIOLOGY Registered Nurse 06/26/25 06/26/25 Monique Tapia LPN VALUE-[employer]ED [place] [address] TCM Nurse 07/10/25 08/09/25 Shaniqua Trevino LPN TCM Nurse 08/21/25 documented as of this encounter
--- OUTSIDE RECORDS SUMMARY | 2025-09-15 01:30 | XMS_ITS | Encounter Summary ---
Author Organization [facility] Address [address] [place] [address] Care Team Providers Care Channel Marketing Specialist Name Role Phone Wilma Howard Ambar ROUSEN Primary Care Provider [phone] Lea Fernando Unavailable [phone] Rachel Ray INSTRUCTOR TECHNICAL TRAINING Unavailable [phone] Taina Lyles INSTRUCTOR TECHNICAL TRAINING Primary Care Provider [phone] Monique Tapia LPN Unavailable Unavailable Alvarez Zimmer MD Primary Care Provider Shaniqua Trevino LPN Unavailable Unavailable Tamera Isabel SOCIAL RESEARCH ASSISTANT Unavailable UnavailAlina Bedolla RN Unavailable Unavailab Monique Che LPN Unavailable Unavailable Shaniqua Trevino LPN Unavailable Unavailable Lillie Pritchard MD Primary Care Provider [phone] Encounter Details Date Type Department Care Team (Late st Contact Info) Description 02/26/2024 Orders Only External Location [address] [place] [id number] Provider, External Social History Tobacco Use Types [...] Description 09/17/2025 9:45 AM EDT Clinical Support [facility] [address] [place] [address] 09/17/2025 10:30 AM EDT Social Work [facility] [place] [address] [place] [address] Lea Reilly, [place] [address] 09/17/2025 11:20 AM EDT Office Visit [facility] [place] [address] [place] [address] Octavia Herrera, MARIA GUADALUPE [address] [place] [address] 09/19/2025 10:30 AM EDT Appointment [facility] [address] [place] [address] 09/19/2025 11:30 AM EDT Appointment [facility] [address] [place] [address] 09/26/2025 7:30 AM EST Appointment [facility] [address] [place] [address] 09/26/2025 8:30 AM EST Appointment [facility] [address] [place] [address] 10/01/2025 9:00 AM EST Office Visit [address], [address] [place] [address] Lillie Pritchard MD [address] [place] [id number] 10/03/2025 12:30 PM EST Appointment [facility] [address] [place] [address] 10/03/2025 1:30 PM EST Appointment [facility] [address] [place] [address] 12/20/2025 11:00 AM EST Office Visit [facility] Endocrinology [address] [place] [address] Miranda Hobson, INSTRUCTOR TECHNICAL TRAINING [address] [place] [address] documented as of this encounter [...] of this encounter Care Teams Channel Marketing Specialist Relationship Specialty Start Date End Date Wilma Howard, INSTRUCTOR TECHNICAL TRAINING [address] [place] [address] [place] [address] PCP - General 04/03/21 09/30/24 Taina Lyles APRN [address] [place] [address] [place] [address] PCP - General 10/01/24 12/06/24 Alvarez Zimmer MD [address] [place] [address] PCP - General Family Medicine 12/07/24 09/02/25 Lillie Pritchard MD [address] [place], [place] [id number] PCP - General Family Medicine 09/03/25 Lea Fernando [address] [facility] [address] [place] [address] [employer] Endocrinology 08/29/24 Rachel Ray APRN [address] [place] [address] Nurse Practitioner Gastroenterology 09/24/24 Monique Tapia LPN VALUE-[place] [place] [address] TCM Nurse 11/28/24 12/28/24 Shaniqua Trevino LPN TCM Nurse 01/15/25 02/14/25 Tamera Isabel LPN VALUE-BASED TRANSFORMATION PROGRAM Licensed Practical Nurse 05/29/25 Alina Lovett, RN CH-VASCULAR & INTERVENTIONAL RADIOLOGY Registered Nurse 06/26/25 06/26/25 Monique Tapia LPN VALUE-[place] [address] TCM Nurse 07/10/25 08/09/25 Shaniqua Trevino LPN TCM Nurse 08/21/25 documented as of this encounter
--- OUTSIDE RECORDS SUMMARY | 2025-09-15 01:30 | XMS_ITS | Encounter Summary ---
Author Organization [facility] Address [address] [place] [address] Care Team Providers Care Senior Engineering Specialist Name Role Phone Wilma Howard Ambar ROUSEN Primary Care Provider [phone] Lea Fernando Unavailable [phone] Rachel Ray OFFSHORE DIVER Unavailable [phone] Taina Lyles OFFSHORE DIVER Primary Care Provider [phone] Monique Tapia LPN Unavailable Unavailable Alvarez Zimmer MD Primary Care Provider [phone] Shaniqua Trevino LPN Unavailable Unavailable Tamera Isabel DOG RAISER Unavailable UnavailAlina Bedolla RN Unavailable Unavailab Monique Che LPN Unavailable Unavailable Shaniqua Trevino LPN Unavailable Unavailable Lillie Pritchard MD Primary Care Provider [phone] Encounter Details Date Type Department Care Team (Late st Contact Info) Description 02/02/2024 Orders Only External Location [address] [place] [phone] Provider, External Social History Tobacco Use Types [...] Description 09/17/2025 9:45 AM EDT Clinical Support [facility] [address] [place] [address] 09/17/2025 10:30 AM EDT Social Work [facility] [place] [address] [place] [address] Lea Reilly, [place] [address] 09/17/2025 11:20 AM EDT Office Visit [facility] [place] [address] [place] [address] Octavia Herrera, MARIA GUADALUPE [address] [place] [address] 09/19/2025 10:30 AM EDT Appointment [facility] [address] [place] [address] 09/19/2025 11:30 AM EDT Appointment [facility] [address] [place] [address] 09/26/2025 7:30 AM EST Appointment [facility] [address] [place] [address] 09/26/2025 8:30 AM EST Appointment [facility] [address] [place] [address] 10/01/2025 9:00 AM EST Office Visit [address], [address] [place] [address] Lillie Pritchard MD [address] [place] [phone] 10/03/2025 12:30 PM EST Appointment [facility] [address] [place] [address] 10/03/2025 1:30 PM EST Appointment [facility] [address] [place] [address] 12/20/2025 11:00 AM EST Office Visit [facility] Endocrinology [address] [place] [address] Miranad Hobson, OFFSHORE DIVER [address] [place] [address] documented as of this encounter Procedures Procedure Name Priority Date/Time Associated Diagnosis Comments CT OUTSIDE IMAGES 02/02/2024 11:26 AM EDT documented in this encounter Results * CT OUTSIDE IMAGES (02/02/2024 11:26 AM EDT) Anatomical Region Laterality Modality Computed Tomogra phy 02/02/2024 11:2 6 AM EDT External Provider IMG CT PROCEDURES [...] as of this encounter Care Teams Senior Engineering Specialist Relationship Specialty Start Date End Date Wimla Howard, OFFSHORE DIVER [address] [place] [address] [place] [address] PCP - General 04/03/21 09/30/24 Taina Lyles APRN [address] [place] [address] [place] [address] PCP - General 10/01/24 12/06/24 Alvarez Zimmer MD [address] [place] [address] PCP - General Family Medicine 12/07/24 09/02/25 Lillie Pritchard MD [address] [place], [place] [id number] PCP - General Family Medicine 09/03/[address] [facility] [address] [place] [address] Customer Service Teller Endocrinology 08/29/24 Rachel Ray, OFFSHORE DIVER [address] [place] [address] Nurse Practitioner Gastroenterology 09/24/24 Monique Tapia LPN VALUE-BASED [place] [address] TCM Nurse 11/28/24 12/28/24 Shaniqua Trevino LPN TCM Nurse 01/15/25 02/14/25 Tamera Isabel LPN VALUE-BASED TRANSFORMATION PROGRAM Licensed Practical Nurse 05/29/25 Alina Lovett, RN CH-VASCULAR & INTERVENTIONAL RADIOLOGY Registered Nurse 06/26/25 06/26/25 Monique Tapia LPN VALUE-BASED [place] [address] TCM Nurse 07/10/25 08/09/25 Shaniqua Trevino LPN TCM Nurse 08/21/25 documented as of this encounter
--- OUTSIDE RECORDS SUMMARY | 2025-09-15 01:31 | XMS_ITS | Encounter Summary ---
Author Organization [facility] Address [address] [place] [address] Care Team Providers Care Grinder Dresser Name Role Phone Lea Fernando Unavailable [phone] Rachel Ray SCRUBBER SYSTEM ATTENDANT Unavailable [phone] Alvarez Zimmer MD Primary Care Provider [phone] Tamera Isabel CIGARETTE PACKAGE EXAMINER Unavailable Unavailabl Shaniqua Centeno CIGARETTE PACKAGE EXAMINER Unavailable Unavailable Encounter Details Date Type Department Care Team (Late st Contact Info) Description 08/26/2025 Telephone [facility] [address] [place] [address] Goran Marlow, Hang Rivera, PharmD Social History Tobacco Use Types Packs/Day Years [...] How often do you attend [facility] or [facility] services? Patient unable to answer 01/10/2025 Do you belong to any clubs o r organizations such as congregational groups, unions, Talentoday or athletic groups, or school groups? Patient [...] occasion? Never 06/25/2025 [facility] - Occupational [...] in a care home (including now)? No 08/19/2025 [facility] Utilities Answer Date Recorded In [...] drink first t kennedy in the morning (EYE-MUSIC ARRANGER) to steady your nerves or to get [...] encounter Miscellaneous Notes * Telephone Encounter - Hang Lantigua, PrinceD - 08/26/2025 9:07 AM EDT [facility] Discharge of Clinical Services Specialty Medications and their indications: Tymlos - osteoporosis Reason(s) for discharge: Discontinued/ Completed Therapy Summary of care provided: Benefits investigation, Prior authorization, Education, and Financial assistance Patient's ongoing unmet needs/care: Patient has no ongoing unmet needs. Instructions or referral information provided to the patient/responsible alliance party: No referral information needed- Medication was stopped Hang marlow, PharmD 08/26/2025 9:07 AM documented in this encounter Plan of Treatment Upcoming Encounters Date Type Department Care Team (Late st Contact Info) Description 09/17/2025 9:45 AM EDT Clinical Support [facility] [address] [facility] [address] [place] [address] 09/17/2025 10:30 AM EDT Social Work [facility] [address] [place] [address] Lea Reilly, [place] [address] 09/17/2025 11:20 AM EDT Office Visit [facility] [address] [place] [address] Octavia Herrera, PA [address] [place] [address] 09/19/2025 10:30 AM EDT Appointment [facility] [address] [place] [address] 09/19/2025 11:30 AM EDT Appointment [facility] [address] [place] [address] 09/26/2025 7:30 AM EST Appointment [facility] [address] [place] [address] 09/26/2025 8:30 AM EST Appointment [facility] [address] [place] [address] 10/01/2025 9:00 AM EST Office Visit [facility] [address] [place] [address] Lillie Pritchard MD [address] [place] [address] 10/03/2025 12:30 PM EST Appointment [facility] [address] [place] [address] 10/03/2025 1:30 PM EST Appointment [facility] [address] [place] [address] 12/20/2025 11:00 AM EST Office Visit [facility] [address] [place] [address] Miranda Hobson, SCRUBBER SYSTEM ATTENDANT [address] [facility] [address] [place] [address] documented as of this encounter Visit Diagnoses [...] documented as of this encounter Care Teams Grinder Dresser Relationship Specialty Start Date End Date Alvarez Zimmer MD [address] [place] [address] PCP - General Family Medicine 12/07/24 09/02/25 Lea Fernando [address] [facility] [address] [place] [address] Psychiatric Arnp Endocrinology 08/29/24 Rachel Ray, SCRUBBER SYSTEM ATTENDANT [address] [place] [address] Nurse Practitioner Gastroenterology 09/24/24 Tamera Isabel LPN VALUE-BASED TRANSFORMATION PROGRAM Licensed Practical Nurse 05/29/25 Shaniqua Trevino LPN TCM Nurse 08/21/25 documented as of this encounter
--- OUTSIDE RECORDS SUMMARY | 2025-09-15 01:31 | XMS_ITS | Encounter Summary ---
Author Organization [facility] Address [address] [place] [address] Care Team Providers Care Director Of Music Therapy Name Role Phone Wilma Howard Ambar ROUSEN Primary Care Provider [phone] Lea Fernando Unavailable [phone] Rachel Ray CASINO CONTROLLER Unavailable [phone] Taina Lyels CASINO CONTROLLER Primary Care Provider [phone] Monique Tapia LPN Unavailable Unavailable Alvarez Zimmer MD Primary Care Provider [phone] Shaniqua Trevino LPN Unavailable Unavailable Tamera Isabel CLOTHES SEPARATOR Unavailable UnavailAlina Bedolla RN Unavailable Unavailab Monique Che LPN Unavailable Unavailable Shaniqua Trevino LPN Unavailable Unavailable Lillie Pritchard MD Primary Care Provider [phone] Encounter Details Date Type Department Care Team (Late st Contact Info) Description 04/23/2024 Orders Only External Location [address] [place] [address] Provider, External Social History Tobacco Use Types [...] [facility] [address] [place] [address] 09/17/2025 10:30 [address] EDT [address] [facility] [place] [address] [place] [address] Lea Reilly, [place] [address] 09/17/2025 11:20 AM EDT Office Visit [facility] [place] [address] [place] [address] Octavia Herrera, MARIA GUADALUPE [address] [place] [address] 09/19/2025 10:30 AM EDT Appointment [facility] [address] [place] [address] 09/19/2025 11:30 AM EDT Appointment [facility] [address] [place] [address] 09/26/2025 7:30 AM EST Appointment [facility] [address] [place] [address] 09/26/2025 8:30 AM EST Appointment [facility] [address] [place] [address] 10/01/2025 9:00 AM EST Office Visit [address] [place] [address] Lillie Pritchard MD [address] [place] [address] 10/03/2025 12:30 PM EST Appointment [facility] [address] [place] [address] 10/03/2025 1:30 PM EST Appointment [facility] [address] [place] [address] 12/20/2025 11:00 AM EST Office Visit [facility] End[facility]inology [address] [place] [address] Miranda Hobson, CASINO CONTROLLER [address] [place] [address] documented as of this encounter Procedures Procedure Name Priority Date/Time Associated Diagnosis Comments XR ABDOMEN OUTSIDE IMAGES 04/23/2024 8:50 AM EDT documented in this encounter Results * XR ABDOMEN OUTSIDE IMAGES (04/23/2024 8:50 AM EDT) Anatomical Region Laterality Modality Radiographic Mariposa ging 04/23/2024 8:50 AM EDT External Provider IMG XR PROCEDURES [...] of this encounter Care Teams Director Of Music Therapy Relationship Specialty Start Date End Date Wilma Howard, CASINO CONTROLLER [address] [place] [address] [place] [address] PCP - General 04/03/21 09/30/24 Taina Lyles APRN [address] [place] [address] [place] [address] PCP - General 10/01/24 12/06/24 Alvarez Zimmer MD [address] [place] [address] PCP - General Family Medicine 12/07/24 09/02/25 Lillie Pritchard MD [address] [place], [place] [address] PCP - General Family Medicine 09/03/25 Lea Fernando [address] [facility] [address] [place] [address] Refrigerator Repair Technician Endocrinology 08/29/24 Rachel Ray, CASINO CONTROLLER [address] [place] [address] Nurse Practitioner Gastroenterology 09/24/24 Monique Tapia LPN VALUE-BASED [place] [address] TCM Nurse 11/28/24 12/28/24 Shaniqua Trevino LPN TCM Nurse 01/15/25 02/14/25 Tamera Isabel LPN VALUE-BASED TRANSFORMATION PROGRAM Licensed Practical Nurse 05/29/25 Alina Lovett, RN CH-VASCULAR & INTERVENTIONAL RADIOLOGY Registered Nurse 06/26/25 06/26/25 Monique Tapia LPN VALUE-BASED [place] [address] TCM Nurse 07/10/25 08/09/25 Shaniqua Trevino LPN TCM Nurse 08/21/25 documented as of this encounter
--- OUTSIDE RECORDS SUMMARY | 2025-09-15 01:31 | XMS_ITS | Encounter Summary ---
Author Organization [facility] Address [address] [place] [address] Care Team Providers Care Channel Rebuilder Name Role Phone Wilma Howard Ambar CHARTERED ACCOUNTANT Primary Care Provider [phone] Lea Fernando Unavailable [phone] Rachel Ray CHARTERED ACCOUNTANT Unavailable [phone] Taina Lyles CHARTERED ACCOUNTANT Primary Care Provider [phone] Monique Tapia LPN Unavailable Unavailable Alvarez Zimmer MD Primary Care Provider [phone] Shaniqua Trevino LPN Unavailable Unavailable Tamera Isabel BAG SHOP WORKER Unavailable UnavailAlina Bedolla RN Unavailable Unavailab Monique Che LPN Unavailable Unavailable Shaniqua Trevino LPN Unavailable Unavailable Lillie Pritchard MD Primary Care Provider [phone] Encounter Details Date Type Department Care Team (Late st Contact Info) Description 12/15/2023 Orders Only External Location [address] [place] [phone] Provider, External Social History Tobacco Use Types [...] Description 09/17/2025 9:45 AM EDT Clinical Support [facility] [address] [place] [address] 09/17/2025 10:30 AM EDT Social Work [facility] [place] [address] [place] [address] Lea Reilly, [place] [address] 09/17/2025 11:20 AM EDT Office Visit [facility] [place] [address] [place] [address] Octavia Herrera, MARIA GUADALUPE [address] [place] [address] 09/19/2025 10:30 AM EDT Appointment [facility] [address] [place] [address] 09/19/2025 11:30 AM EDT Appointment [facility] [address] [place] [address] 09/26/2025 7:30 AM EST Appointment [facility] [address] [place] [address] 09/26/2025 8:30 AM EST Appointment [facility] [address] [place] [address] 10/01/2025 9:00 AM EST Office Visit [address], [address] [place] [address] Lillie Pritchard MD [address] [place] [address] 10/03/2025 12:30 PM EST Appointment [facility] [address] [place] [address] 10/03/2025 1:30 PM EST Appointment [facility] [address] [place] [address] 12/20/2025 11:00 AM EST Office Visit [facility] Endocrinology [address] [place] [address] Miranda Hobson, CHARTERED ACCOUNTANT [address] [place] [address] documented as of this encounter Procedures Procedure Name Priority Date/Time Associated Diagnosis Comments XR ABDOMEN OUTSIDE IMAGES 12/15/2023 12:33 PM EST documented in this encounter Results * XR ABDOMEN OUTSIDE IMAGES (12/15/2023 12:33 PM EST) Anatomical Region Laterality Modality Radiographic Mariposa ging 12/15/2023 12:3 3 PM EST External Provider IMG XR PROCEDURES [...] as of this encounter Care Teams Channel Rebuilder Relationship Specialty Start Date End Date Wilma Howard, CHARTERED ACCOUNTANT [address] [place] [address] [place] [address] PCP - General 04/03/21 09/30/24 Taina Lyles APRN [address] [place] [address] [place] [address] PCP - General 10/01/24 12/06/24 Alvarez Zimmer MD [facility] [place]note 2] [place] [address] PCP - General Family Medicine 12/07/24 09/02/25 Lillie Pritchard MD [address] [place], [place] [phone] PCP - General Family Medicine 09/03/25 Lea Fernando [address] [facility] [address] [place] [address] Roll Up Machine Operator Endocrinology 08/29/24 Rachel Ray, CHARTERED ACCOUNTANT [address] [place] [address] Nurse Practitioner Gastroenterology 09/24/24 Monique Tapia LPN VALUE-[place]ED [place] [address] TCM Nurse 11/28/24 12/28/24 Shaniqua Trevino LPN TCM Nurse 01/15/25 02/14/25 Tamera Isabel LPN VALUE-BASED TRANSFORMATION PROGRAM Licensed Practical Nurse 05/29/25 Alina Lovett, RN [facility]IOLOGY Registered Nurse 06/26/25 06/26/25 Monique Tapia LPN VALUE-[place] [address] TCM Nurse 07/10/25 08/09/25 Shaniqua Trevino LPN TCM Nurse 08/21/25 documented as of this encounter
--- OUTSIDE RECORDS SUMMARY | 2025-09-15 01:31 | XMS_ITS | Encounter Summary ---
Author Organization [facility] Address [address] [place] [address] Care Team Providers Care Identification Printing Machine Setter Name Role Phone Lea Fernando Unavailable [phone] Rachel Ray ORTHOTIC FITTER Unavailable [phone] Alvarez Zimmer MD Primary Care Provider [phone] Tamera Isabel AGRICULTURAL AGENT Unavailable UnavailShaniqua Lomeli AGRICULTURAL AGENT Unavailable Unavailable Encounter Details Date Type Department Care Team (Latest Contact Info) Description 08/26/2025 Travel Social History Tobacco Use Types Packs/Day [...] living in a detention (including now)? No 08/19/2025 [facility] Utilities [...] drink first t kennedy in the morning (EYE-DRIVER GUARD) to steady your nerves or to get [...] Description 09/17/2025 9:45 AM EDT Clinical Support [facility] [address] [place] [address] 09/17/2025 10:30 AM EDT Social Work [facility] [address] [place] [address] Lea Reilly, [place] [address] 09/17/2025 11:20 AM EDT Office Visit [facility] [address] [place] [address] Octavia Herrera, MARIA GUADALUPE [address] [facility] [address] [place] [address] 09/19/2025 10:30 AM EDT Appointment [facility] [address] [place] [address] 09/19/2025 11:30 AM EDT Appointment [facility] [address] [place] [address] 09/26/2025 7:30 AM EST Appointment [facility] [address] [place] [address] 09/26/2025 8:30 AM EST Appointment [facility] [address] [place] [address] 10/01/2025 9:00 AM EST Office Visit [facility] [address] [facility] [place] [address] Lillie Pritchard MD [address] [place] [address] 10/03/2025 12:30 PM EST Appointment [facility] [address] [place] [address] 10/03/2025 1:30 PM EST Appointment [facility] [address] [place] [address] 12/20/2025 11:00 AM EST Office Visit [facility] [address] [place] [address] Miranda Hobson P, ORTHOTIC FITTER [address] [facility] [address] [place] [address] documented as of this encounter Visit Diagnoses [...] documented as of this encounter Care Teams Identification Printing Machine Setter Relationship Specialty Start Date End Date Alvarez Zimmer MD [address] [place] [address] PCP - General Family Medicine 12/07/24 09/02/25 Lea Fernando [address] [facility] [address] [place] [address] Clinical Services Manager Endocrinology 08/29/24 Rachel Ray APRN [address] [facility] [address] [place] [address] Nurse Practitioner Gastroenterology 09/24/24 Tamera Isabel LPN VALUE-BASED TRANSFORMATION PROGRAM Licensed Practical Nurse 05/29/25 Shaniqua Trevino LPN TCM Nurse 08/21/25 documented as of this encounter
--- OUTSIDE RECORDS SUMMARY | 2025-09-15 01:32 | XMS_ITS | Encounter Summary ---
Author Organization [facility] Address [address] [place] [address] Care Team Providers Care Senior Investment Manager Name Role Phone Lea Fernando Unavailable [phone] Rachel Ray HOME ENERGY CONSULTANT SUPERVISOR Unavailable [phone] Tamera Isabel RETREAD TECHNICIAN Unavailable UnavailShaniqua Lomeli RETREAD TECHNICIAN Unavailable Unavailable Lillie Pritchard MD Primary Care Provider [phone] Reason for Referral * Imaging (Routine) - Closed Specialty Diagnoses / Procedures Referred By Contherbert t Referred To Contact Radiology Diagnoses Other ascites Procedures US Guided Abdominal Paracentesis Preeti Andersen APRN [address] [place] [address] Phone: tel: fax: Referral ID Status Reason Start Date Expiration Date Visits Re quested Visits Authorized [id number] Closed 09/10/2025 03/12/2027 1 1 Encounter Details Date Type Department Care Team ([facility] st Contact Info) Description 09/10/2025 Orders Only [facility]ascular Interventional Radiology [address] [place] [address] Preeti Andersen, HOME ENERGY CONSULTANT SUPERVISOR [address] [place] [address] Other ascites (Primary Dx) Social History Tobacco [...] do you attend [facility] or faith services? Patient unable to answer [...] more drinks on one occasion? Never 09/03/2025 [facility] - [...] in a senior living (including now)? No 08/19/2025 [facility] Utilities Answer Date Recorded In the [...] drink first t kennedy in the morning (EYE-CIGAR MAKING MACHINE OPERATOR) to steady your nerves or [...] Description 09/17/2025 9:45 AM EDT Clinical Support [facility] [place] [address] [place] [address] 09/17/2025 10:30 AM EDT Social Work [facility] [place] [address] [place] [address] Lea Reilly, [place] [address] 09/17/2025 11:20 AM EDT Office Visit [facility] [place] [address] [place] [address] Octavia Herrera, PA [address] [place] [address] 09/19/2025 10:30 AM EDT Appointment [facility] [address] [place] [address] 09/19/2025 11:30 AM EDT Appointment [facility] [address] [place] [address] 09/26/2025 7:30 AM EST Appointment [facility] [address] [place] [address] 09/26/2025 8:30 AM EST Appointment [facility] [address] [place] [address] 10/01/2025 9:00 AM EST Office Visit [address], [address] [place] [address] Lillie Pritchard MD [address] [place] [address] 10/03/2025 12:30 PM EST Appointment [facility] [address] [place] [address] 10/03/2025 1:30 PM EST Appointment [facility] [address] [place] [address] 12/20/2025 11:00 AM EST Office Visit [facility] Endocrinology [address] [place] [address] Miranda Hobson, ADRI [address] [place] [address] documented as of this encounter Results * US Guided Abdominal Paracentesis (09/10/2025 8:46 [...] by ascites and intermittent hepatic hydrothorax. TECHNIQUE: Creative Art Director: ADRI Andersen Secondary Sales Floor Manager: None. Rad Dose: NA Medications: Continuous [...] complicated by ascites and intermittent hepatichydrothorax. TECHNIQUE: Creative Art Director: ADRI Andersen Secondary Sales Floor Manager: None. Rad Dose: NA Medications: Continuous [...] on 09/10/2025 10:55 AM us Preeti Andersen HOME ENERGY CONSULTANT SUPERVISOR IMG US PROCEDURES Final Result documented in [...] as of this encounter Care Teams Senior Investment Manager Relationship Specialty Start Date End Date Lillie Pritchard MD [address] [place] [address] PCP - General Family Medicine 09/03/25 Lea Fernando [address] [place] [address] Service Desk Analyst Endocrinology 08/29/24 Rachel Ray APRN [address] [place] [address] Nurse Practitioner Gastroenterology 09/24/24 Tamera Isabel LPN VALUE-BASED TRANSFORMATION PROGRAM Licensed Practical Nurse 05/29/25 Shaniqua Trevino LPN TCM Nurse 08/21/25 documented as of this encounter
--- OUTSIDE RECORDS SUMMARY | 2025-09-15 01:32 | XMS_ITS | Encounter Summary ---
Author Organization [facility] Address [address] [place] [address] Care Team Providers Care Claims Attorney Name Role Phone Lea Fernando Unavailable [phone] Rachel Ray BEAUTY THERAPIST Unavailable [phone] Tamera Isabel BARREL BUNG REMOVER AND DUMPER Unavailable UnavailShnaiqua Lomeli BARREL BUNG REMOVER AND DUMPER Unavailable Unavailable Lillie Pritchard MD Primary Care Provider [phone] Encounter Details Date Type Department Care Team (Latest Contact Info) Description 09/03/2025 Travel Social History Tobacco Use Types Packs/Day [...] any clubs o r organizations such as anabaptist groups, unions, fraternal or athletic groups, or [...] you attend chur ch or methodist services? Never 05/29/2025 Do you belong to any clubs o r organizations such as anabaptist groups, unions, fraternal or athletic groups, or [...] more drinks on one occasion? Never 09/03/2025 [facility] [...] living in a residential (including now)? No 08/19/2025 [facility] Utilities Answer Date Recorded In the past [...] drink first t kennedy in the morning (EYE-ASSISTANT DISTRICT ATTORNEY) to steady your nerves or to [...] of Assessment Author 0 09/03/2025 8:[address] razia Shankar CNA * Question Answer Date of Assessment Author Q1: How often do you have a drink containing alcohol? Never 09/03/2025 8:53 AM Bari Shankar CNA Q2: How many drinks containing alcohol [...] (Past 1 Month) No 025 8:59 AM EDT Bair Mancini, JOURNEYMAN ELECTRICIAN 2. Non-Specific Active Suici liz Thoughts (Past 1 Month) No 09/03/2025 8:59 AM EDT Latricia Mancini, JOURNEYMAN ELECTRICIAN 6. Suicidal Behavior (Lifetime) No 8:59 AM EDT Bari Mancini CNA documented as of this encounter Plan of Treatment Upcoming Encounters Date Type Department Care Team (Late st Contact Info) Description 09/17/2025 9:45 AM EDT Clinical Support [facility] [place] [address] [place] [address] 09/17/2025 10:30 AM EDT Social Work [facility] [place] [address] [place] [address] Lea Reilly, [place] [address] 09/17/2025 11:20 AM EDT Office Visit [facility] [place] [address] [place] [address] Octavia Herrera, [place] [address] [facility] [address] [place] [address] 09/19/2025 10:30 AM EDT Appointment [facility] [address] [place] [address] 09/19/2025 11:30 AM EDT Appointment [facility] [address] [place] [address] 09/26/2025 7:30 AM EST Appointment [facility] [address] [place] [address] 09/26/2025 8:30 AM EST Appointment [facility] [address] [place] [address] 10/01/2025 9:00 AM EST Office Visit [address], [address] [place] [address] Lillie Pritchard MD [address] [place] [address] 10/03/2025 12:30 PM EST Appointment [facility] [address] [place] [address] 10/03/2025 1:30 PM EST Appointment [facility] [address] [place] [address] 12/20/2025 11:00 AM EST Office Visit [facility] Endocrinology [address] [place] [address] Miranda Hobson, BEAUTY THERAPIST [address] [facility] [address] [place] [address] documented as of this encounter [...] as of this encounter Care Teams Claims Attorney Relationship Specialty Start Date End Date Lillie Pritchard MD [address] [place] [address] PCP - General Family Medicine 09/03/25 Lea Fernando [address] [place] [address] Debt Collector Endocrinology 08/29/24 Rachel Ray, BEAUTY THERAPIST [address] [facility] [address] [place] [address] Nurse Practitioner Gastroenterology 09/24/24 Tamera Isabel LPN VALUE-BASED TRANSFORMATION PROGRAM Licensed Practical Nurse 05/29/25 Shaniqua Trevino LPN TCM Nurse 08/21/25 documented as of this encounter
--- OUTSIDE RECORDS SUMMARY | 2025-09-15 01:32 | XMS_ITS | Clinical Summary ---
Author Organization [facility] Address [address] [place] [address] Phone Care Team Providers Care Early Childhood Teacher Name Role Phone Taina Lyles Primary Care Provider Allergies No known active [...] 02/11/2021, Additional history exists Diabetes: Hemoglobin A1C 11/26/2025 025, 05/23/2025, 01/08/2025, Additional history exists Pneumococcal Vaccine: Peds ( 0 to 5 Years) and At-Risk Patients (6 to 49 Years) Discontinued 08/23/2018 Insurance [employer] Dual [employer] MCR/GINGER Care Teams Early Childhood Teacher Relationship Specialty Start Date End Date Taina Lyles [address] [place] [address] PCP - General 05/02/23
--- OUTSIDE RECORDS SUMMARY | 2025-09-15 01:32 | XMS_ITS | Encounter Summary ---
Author Organization [facility] Address [address] [place] [address] Care Team Providers Care Coin Purse Framer Name Role Phone Lea Fernando Unavailable [phone] Rachel Ray PAPERBACK MACHINE OPERATOR Unavailable [phone] Alvarez Zimmer MD Primary Care Provider [phone] Tamera Isabel MANAGER OF CREATIVE SERVICES Unavailable UnavailShaniqua Lomeli MANAGER OF CREATIVE SERVICES Unavailable Unavailable Encounter Details Date Type Department Care Team (Latest Contact Info) Description 09/02/2025 Travel Social History Tobacco Use Types Packs/Day [...] more drinks on one occasion? Never 09/03/2025 [facility] of Occupat [...] living in a prison (including now)? No 08/19/2025 [facility] Utilities Answer Date Recorded In [...] drink first t kennedy in the morning (EYE-CAT SKINNER) to steady your nerves or to get [...] AM EDT Clinical Support [facility] [place] [address] [place] [address] 09/17/2025 10:30 AM EDT Social Work [facility] [place] [address] [place] [address] Lea Reilly, [place] [address] 09/17/2025 11:20 AM EDT Office Visit [facility] [place] [address] [place] [address] Octavia Herrera, MARIA GUADALUPE [address] [facility] [address] [place] [address] 09/19/2025 10:30 AM EDT Appointment [facility] Inter[facility] Radiology [address] [place] [address] 09/19/2025 11:30 AM EDT Appointment [facility] [address] [place] [address] 09/26/2025 7:30 AM EST Appointment [facility] [address] [place] [address] 09/26/2025 8:30 AM EST Appointment [facility] [address] [place] [address] 10/01/2025 9:00 AM EST Office Visit [facility] [address] [facility] [place] [address] Lillie Pritchard MD [address] [place] [address] 10/03/2025 12:30 PM EST Appointment [facility] [address] [place] [address] 10/03/2025 1:30 PM EST Appointment [facility] [address] [place] [address] 12/20/2025 11:00 AM EST Office Visit [facility] Endocrinology [address] [place] [address] Miranda Hobson P, PAPERBACK MACHINE OPERATOR [address] [facility] [address] [place] [address] documented as of this encounter Visit Diagnoses [...] documented as of this encounter Care Teams Coin Purse Framer Relationship Specialty Start Date End Date Alvarez Zimmer MD [address] [place] [address] PCP - General Family Medicine 12/07/24 09/02/25 Lea Fernando [address] [facility] [address] [place] [address] Public Address Technician Endocrinology 08/29/24 Rachel Ray APRN [address] [facility] [address] [place] [address] Nurse Practitioner Gastroenterology 09/24/24 Tamera Isabel LPN VALUE-BASED TRANSFORMATION PROGRAM Licensed Practical Nurse 05/29/25 Shaniqua Trevino LPN TCM Nurse 08/21/25 documented as of this encounter
--- OUTSIDE RECORDS SUMMARY | 2025-09-15 01:32 | XMS_ITS | Encounter Summary ---
Author Organization [facility] Address [address] [place] [address] Care Team Providers Care Vice President Lending Name Role Phone Wilma Howard Ambar SENIOR INFORMATICA DEVELOPER Primary Care Provider [phone] Lea Fernando Unavailable [phone] Rachel Ray SENIOR INFORMATICA DEVELOPER Unavailable [phone] Taina Lyles SENIOR INFORMATICA DEVELOPER Primary Care Provider [phone] Monique Tapia TEST DRILLER Unavailable Unavailable Alvarez Zimmer MD Primary Care Provider [phone] Shaniqua Trevino LPN Unavailable Unavailable Tamera Isabel TEST DRILLER Unavailable UnavailAlina Bedolla RN Unavailable Unavailab Monique Che LPN Unavailable Unavailable Shaniqua Trevino LPN Unavailable Unavailable Lillie Pritchard MD Primary Care Provider [phone] Reason for Visit * Reason Onset Date Comments Med Refill Med Refill 08/11/2021 Encounter Details Date Type Department Care Team (Late st Contact Info) Description 07/28/2021 Refill [facility] Endocrinology [address] [place] [address] Deysi Antonio MD [address] [address] Social History Tobacco Use Types Packs/Day Years [...] Dosage: Test Strips Preferred Pharmacy & Location: [facility] Days of medication remaining (if under 3 days please aida as urgent): Pt is out Best contact number and optimal time of day to reach caller: [phone] Additional comments/information from caller: Note: Please do [...] Description 09/17/2025 9:45 AM EDT Clinical Support [facility] [place] [address] [place] [address] 09/17/2025 10:30 AM EDT Social Work [facility] [place] [address] [place] [address] Lea Reilly, [place] [id number] 09/17/2025 11:20 AM EDT Office Visit [facility] [address] [place] [address] Octavia Herrera, PA [address] [place] [address] 09/19/2025 10:30 AM EDT Appointment [facility] [address] [place] [address] 09/19/2025 11:30 AM EDT Appointment [facility] [address] [place] [address] 09/26/2025 7:30 AM EST Appointment [facility] [address] [place] [address] 09/26/2025 8:30 AM EST Appointment [facility] [address] [place] [address] 10/01/2025 9:00 AM EST Office Visit [facility] [address] [place] [address] Lillie Pritchard MD [address] [place], [place] [id number] 10/03/2025 12:30 PM EST Appointment [facility] [address] [place] [address] 10/03/2025 1:30 PM EST Appointment [facility] [address] [place] [address] 12/20/2025 11:00 AM EST Office Visit [facility] Endocrinology [address] [place] [address] Miranda Hobson P, SENIOR INFORMATICA DEVELOPER [address] [place] [address] documented as of this [...] of this encounter Care Teams Vice President Lending Relationship Specialty Start Date End Date Wilma Howard APRN [address] [place] [address] [place] [address] PCP - General 04/03/21 09/30/24 Taina Lyles APRN [address] [place] [address] [place] [address] PCP - General 10/01/24 12/06/24 Alvarez Zimmer MD [address] [place] [address] PCP - General Family Medicine 12/07/24 09/02/25 Lillie Pritchard MD [address] [place] [address] PCP - General Family Medicine 09/03/25 Lea Fernando [address] [place] [address] Buffet Server Endocrinology 08/29/24 Rachel Ray, SENIOR INFORMATICA DEVELOPER [address] [facility] [address] [place] [address] Nurse Practitioner Gastroenterology 09/24/24 Monique Tapia LPN VALUE-BASED [place] [address] TCM Nurse 11/28/24 12/28/24 Shaniqua Trevino LPN TCM Nurse 01/15/25 02/14/25 Tamera Isabel LPN VALUE-BASED TRANSFORMATION PROGRAM Licensed Practical Nurse 05/29/25 Alina Lovett, RN [facility]-VASCULAR & INTERVENTIONAL RADIOLOGY Registered Nurse 06/26/25 06/26/25 Monique Tapia LPN VALUE-BASED [place] [address] TCM Nurse 07/10/25 08/09/25 Shaniqua Trevino LPN TCM Nurse 08/21/25 documented as of this encounter
--- OUTSIDE RECORDS SUMMARY | 2025-09-15 01:32 | XMS_ITS | Encounter Summary ---
Author Organization [facility] Address [address] [place] [address] Care Team Providers Care Power Systems Engineer Name Role Phone Lea Fernando Unavailable [phone] Rachel Ray OR SCRUB TECH Unavailable [phone] Tamera Isabel TRUCK SUPERVISOR Unavailable UnavailShaniqua Lomeli TRUCK SUPERVISOR Unavailable Unavailable Lillie Pritchard MD Primary Care Provider [phone] Encounter Details Date Type Department Care Team (Latest Contact Info) Description 09/05/2025 Travel Social History Tobacco Use Types Packs/Day [...] more drinks on one occasion? Never 09/03/2025 [facility] - [...] living in a half-way (including now)? No 08/19/2025 [facility] Utilities Answer Date Recorded In the past [...] drink first t kennedy in the morning (EYE-FLUORESCENT SOLUTION MIXER) to steady your nerves or to [...] Clinical Support [facility] [place] [address] [place] [address] 09/17/2025 10:30 AM EDT [address] [facility] [place] [address] [place] [address] Lea Reilly, [place] [address] 09/17/2025 11:20 AM EDT Office Visit [facility] [place] [address] [place] [address] Octavia Herrera PA [address] [place] [address] 09/19/2025 10:30 AM EDT Appointment [facility] [address] [place] [address] 09/19/2025 11:30 AM EDT Appointment [facility] [address] [place] [address] 09/26/2025 7:30 AM EST Appointment [facility] [address] [place] [address] 09/26/2025 8:30 AM EST Appointment [facility] [address] [place] [address] 10/01/2025 9:00 AM EST Office Visit [facility] [address] [place] [address] Lillie Pritchard MD [address] [place], [place] [id number] 10/03/2025 12:30 PM EST Appointment [facility] [address] [place] [address] 10/03/2025 1:30 PM EST Appointment [facility] [address] [place] [address] 12/20/2025 11:00 AM EST Office Visit [facility] Endocrinology [address] [place] [address] Miranda Hobson, [place] SCRUB TECH [address] [facility] [address] [place] [address] documented as of this encounter Visit Diagnoses [...] documented as of this encounter Care Teams Power Systems Engineer Relationship Specialty Start Date End Date Lillie Pritchard MD [address] [place] [address] PCP - General Family Medicine 09/03/25 Lea Fernando [address] [facility] [address] [place] [address] Hull Molder Endocrinology 08/29/24 Rachel Ray APRN [address] [place] [address] Nurse Practitioner Gastroenterology 09/24/24 Tamera Isabel LPN VALUE-BASED TRANSFORMATION PROGRAM Licensed Practical Nurse 05/29/25 Shaniqua Trevino LPN TCM Nurse 08/21/25 documented as of this encounter
--- OUTSIDE RECORDS SUMMARY | 2025-09-15 01:32 | XMS_ITS | Encounter Summary ---
Author Organization [facility] Address [address] [place] [address] Care Team Providers Care Tearoom Host/Hostess Name Role Phone Lea Fernando Unavailable [phone] Rachel Ray BRUSH CLEARER SURVEYING Unavailable [phone] Alvarez Zimmer MD Primary Care Provider [phone] Tamera Isabel SOUND RECORDING TECHNICIAN Unavailable UnavailShaniqua Lomeli SOUND RECORDING TECHNICIAN Unavailable Unavailable Encounter Details Date Type Department Care Team (Latest Contact Info) Description 08/29/2025 Travel Social History Tobacco Use Types Packs/Day [...] more drinks on one occasion? Never 06/25/2025 [facility] - [...] in a jail (including now)? No 08/19/2025 [facility] Utilities Answer Date Recorded In the [...] drink first t kennedy in the morning (EYE-ACCOUNT ADVISOR) to steady your nerves or to [...] (Past 1 Month) No 08/29/2025 9:23 AM TAMMYT Daniele Kennedy 6. Suicidal Behavior (Lifetime) No 9:23 AM TAMMYT Daniele Kennedy documented as of this encounter Plan of Treatment Upcoming Encounters Date Type Department Care Team (Late st Contact Info) Description 09/17/2025 9:45 AM EDT Clinical Support [facility] [address] [address] 09/17/2025 10:30 AM EDT Social Work [facility] [address] [facility] [place] [address] Lea Reilly, [place] [address] 09/17/2025 11:20 AM EDT Office Visit [facility] [address] [place] [address] Octavia Herrera, PA [address] [place] [address] 09/19/2025 10:30 AM EDT Appointment [facility] [address] [place] [address] 09/19/2025 11:30 AM EDT Appointment [facility] [address] [place] [address] 09/26/2025 7:30 AM EST Appointment [facility] [address] [place] [address] 09/26/2025 8:30 AM EST Appointment [facility] [address] [place] [address] 10/01/2025 9:00 AM EST Office Visit [facility] [address] [place] [address] Lillie Pritchard MD [address] [place], [place] [address] 10/03/2025 12:30 PM EST Appointment [facility] [address] [place] [address] 10/03/2025 1:30 PM EST Appointment [facility] [address] [place] [address] 12/20/2025 11:00 AM EST Office Visit [facility] Endocrinology [address] [place] [address] Miranda Hobson, BRUSH CLEARER SURVEYING [address] [place] [address] documented as of this encounter Visit Diagnoses [...] documented as of this encounter Care Teams Tearoom Host/Hostess Relationship Specialty Start Date End Date Alvarez Zimmer MD [address] [place] [address] PCP - General Family Medicine 12/07/24 09/02/25 Lea Fernando [address] [facility] [address] [place] [address] Pi/Senior Research Associate Endocrinology 08/29/24 Rachel Ray APRN [address] [facility] [address] [place] [address] Nurse Practitioner Gastroenterology 09/24/24 Tamera Isabel LPN VALUE-BASED TRANSFORMATION PROGRAM Licensed Practical Nurse 05/29/25 Shaniqua Trevino LPN TCM Nurse 08/21/25 documented as of this encounter
--- OUTSIDE RECORDS SUMMARY | 2025-09-15 01:32 | XMS_ITS | Encounter Summary ---
Author Organization [facility] Address [address] [place] [address] Care Team Providers Care Patternmaker All Around Name Role Phone NaseemVivLea Lentz Unavailable [phone] Rachel Ray TRAILER CHIEF Unavailable [phone] Alvarez Zimmer MD Primary Care Provider [phone] Tamera Isabel MD SENIOR RESEARCH SCIENTIST Unavailable UnavailAlina Bedolla RN Unavailable Unavailab Monique Che MD SENIOR RESEARCH SCIENTIST Unavailable Unavailable Shaniqua Trevino MD SENIOR RESEARCH SCIENTIST Unavailable Unavailable Lillie Pritchard MD Primary Care Provider [phone] Reason for Visit * Reason Onset Date Comments Med Refill 04/23/2025 Encounter Details Date Type Department Care Team (Late st Contact Info) Description 04/23/2025 Refill [facility] [address] [place] [address] Alvarez Zimmer MD [address] [place] [address] Altered mental status, unspecified altered [...] attend [facility] or buddhism services? Patient unable to answer [...] Recorded Patient Health Questionnaire-2 Score 2 04/10/2025 [facility] - Occupational Stress [...] first t kennedy in the morning (EYE-SALES SERVICE REP) to steady your nerves or to get [...] of zinc sulfate 220 mg sent to [facility] 03/01/2025. Refills remain available at the pharmacy. 90 day supply plus 1 refill of ciprofloxacin 500 mg sent to [facility] 03/01/2025. 1 refill remains available at the pharmacy. 30 day supply plus 3 refills of lactulose 10 gm/15 ml sent to [facility] 02/14/2025. Refills remain available at the pharmacy. documented in this encounter Plan of Treatment Upcoming Encounters Date Type Department Care Team (Late st Contact Info) Description 09/17/2025 9:45 AM EDT Clinical Support [facility] [place] [address] [place] [address] 09/17/2025 10:30 AM EDT Social Work [facility] [place] [address] [place] [address] Lea Reilly, [place] [address] 09/17/2025 11:20 AM EDT Office Visit [facility] [place] [address] [place] [address] Octavia Herrera, PA [address] [place] [address] 09/19/2025 10:30 AM EDT Appointment [facility] [address] [place] [address] 09/19/2025 11:30 AM EDT Appointment [facility] [address] [place] [address] 09/26/2025 7:30 AM EST Appointment [facility] [address] [place] [address] 09/26/2025 8:30 AM EST Appointment [facility] [address] [place] [address] 10/01/2025 9:00 AM EST Office Visit [facility] [address] [facility], [address] [place] [address] Lillie Pritchard MD [address] [place] [address] 10/03/2025 12:30 PM EST Appointment [facility] [address] [place] [address] 10/03/2025 1:30 PM EST Appointment [facility] [address] [place] [address] 12/20/2025 11:00 AM EST Office Visit [facility] Endocrinology [address] [place] [address] Miranda Hobson, ADRI [address] [facility] 125 [place] [address] documented as of this encounter [...] documented as of this encounter Care Teams Patternmaker All Around Relationship Specialty Start Date End Date Alvarez Zimmer MD [address] [place] [address] PCP - General Family Medicine 12/07/24 09/02/25 Lillie Pritchard MD [address] [place] [address] PCP - General Family Medicine 09/03/25 Lea Fernando 2[address] [facility] 125 [place] [address] Reeling Operator Endocrinology 08/29/24 Rachel Ray, TRAILER CHIEF [address] [facility] [address] [place] [address] Nurse Practitioner Gastroenterology 09/24/24 Tamera Isabel LPN VALUE-BASED TRANSFORMATION PROGRAM Licensed Practical Nurse 05/29/25 Alina Lovett, RN CH-VASCULAR & INTERVENTIONAL RADIOLOGY Registered Nurse 06/26/25 06/26/25 Monique Tapia LPN VALUE[place] [address] TCM Nurse 07/10/25 08/09/25 Shaniqua Trevino LPN TCM Nurse 08/21/25 documented as of this encounter
--- OUTSIDE RECORDS SUMMARY | 2025-09-15 01:32 | XMS_ITS | Encounter Summary ---
Author Organization [facility] Address [address] [place] [address] Care Team Providers Care Truck Driver'S Offsider Name Role Phone Lea Fernando Unavailable [phone] aRchel Ray RETAIL COMMISSION SALES ASSOCIATE Unavailable [phone] Tamera Isabel COACH Unavailable UnavailShaniqua Lomeli COACH Unavailable Unavailable Lillie Pritchard MD Primary Care Provider [phone] Encounter Details Date Type Department Care Team (Latest Contact Info) Description 09/10/2025 Travel Social History Tobacco Use Types Packs/Day [...] more drinks on one occasion? Never 09/03/2025 [facility] - [...] in a usp (including now)? No 08/19/2025 [facility] Utilities Answer Date Recorded In [...] drink first t kennedy in the morning (EYE-BOWLING BALL PATCHER) to steady your nerves or to get [...] 9:45 AM EDT Clinical Support [facility] [place] [address] [place] [address] 09/17/2025 10:30 AM EDT Social Work [facility] [place] [address] [place] [address] Lea Reilly, [place] [address] 09/17/2025 11:20 AM EDT Office Visit [facility] [place] [address] [place] [address] Octavia Herrera PA [address] [place] [address] 09/19/2025 10:30 AM EDT Appointment [facility] [address] [place] [address] 09/19/2025 11:30 AM EDT Appointment [facility] [address] [place] [address] 09/26/2025 7:30 AM EST Appointment [facility] [address] [place] [address] 09/26/2025 8:30 AM EST Appointment [facility] [address] [place] [address] 10/01/2025 9:00 AM EST Office Visit [facility] [address] [place] [address] Lillie Pritchard MD [address] [place], [place] [phone] 10/03/2025 12:30 PM EST Appointment [facility] [address] [place] [address] 10/03/2025 1:30 PM EST Appointment [facility] [address] [place] [address] 12/20/2025 11:00 AM EST Office Visit [facility] Endocrinology [address] [place] [address] Miranda Hobson, RETAIL COMMISSION SALES ASSOCIATE [address] [facility] [address] [place] [phone] documented as of this encounter Visit Diagnoses [...] documented as of this encounter Care Teams Truck Driver'S Offsider Relationship Specialty Start Date End Date Lillie Pritchard MD [address] [place] [address] PCP - General Family Medicine 09/03/25 Lea Fernando [address] [facility] [address] [place] [address] Rayon Winder Endocrinology 08/29/24 Rachel Ray APRN [address] [place] [address] Nurse Practitioner Gastroenterology 09/24/24 Tamera Isabel LPN VALUE-BASED TRANSFORMATION PROGRAM Licensed Practical Nurse 05/29/25 Shaniqua Trevino LPN TCM Nurse 08/21/25 documented as of this encounter
--- OUTSIDE RECORDS SUMMARY | 2025-09-15 01:33 | XMS_ITS | Data Portability ---
Author Organization [facility] Office Address [address] [address] Care Team Providers Care Client Hr Manager Name Role Phone ERYN PARKINSON Primary Care Provider [phone] [facility] RITA pizarro Provider Assessment Encounter [...] SUNITA Jurado MD [facility] ([facility]), [facility] [place], [address], 3 16:41:24 drug screen, urine - Meds: NO CURRENT MEDS 2022 023 [email or web address] 1 Rosemarie Jurado MD [facility] (In House Lab), [facility] [place], [address], 3 12:54:43 drug screen, urine - Meds: 2022 023 nishant Jurado MD [facility] (In House Lab), [facility] [place], [address], 3 11:50:47 CBC w/ auto diff 2022 023 nishant Jurado MD [facility] (In House Lab), [facility] [place], [address], 3 07:38:35 hepatic function panel, serum 2022 023 SUNITA Jurado MD [facility] (In House Lab), [facility] [place], [address], 3 09:40:53 gamma-gluta myl transferase (ggt), serum 2022 023 SUNITA Jurado MD [facility] (In House Lab), [facility] [place], [address], 3 09:40:54 venipunctur e 2022 023 nishant Jurado MD [facility] ([facility]), [facility], [place], [address], 3 07:38:43 Referral None recorded. Procedures medial branch block, lumbar (PROC) - l4/5, l5/S1 bilateral, dr joseph 2022 023 [email or web address] [facility], [address] [place] [address], [facility]. [address], [place], [address], 3 13:25:14 Surgeries None recorded. Imaging MRI, lumbar spine, w/o contrast 2022 023 [facility] [address] [facility], [place], [address], 3 17:05:25 Medication Orders hydrocodone 10 mg-acetamin ophen 325 mg tablet 2022 023 [facility], [address], [place], [address], 3 10:25:56 hydrocodone 10 mg-acetamin ophen 325 mg tablet 2022 023 [facility], [address] [place], [address], 3 10:25:55 hydrocodone 10 mg-acetamin ophen 325 mg tablet [address] [facility], [address] [place], [address], 3 10:21:09 hydrocodone 10 mg-acetamin ophen 325 mg tablet 2022 023 [facility], [address] [place], [address], 3 15:01:34 Patient TargetsNo targets recorded. Patient Instructions Encounter Date Encounter Id Patient Instructions Last Modified By Organization Details Last Modified Time 04/04/2023 [id number] Take medications EXACTLY as instructed. Call office for any problems DO NOT run out of medications and medications should last till next appointment. Notify office if going to be late or need to reschedule. [email or web address] Not available 03/28/2023 10:53:16 05/31/2023 [id number] Take medication as directed. Keep all appointments [...] Rosemarie Jurado MD [facility] ([facility]) [address] [place] [address], [address], 11/27/2022 09:40:55 11/26/19 23 11/26/2022 CBC abnormal status high Not Available Genaro Jurado MD [facility] ([facility]) [address] [place] [address], [address], 11/27/2022 09:40:55 11/26/19 23 11/26/2022 CBC abnormal status low Not Available Genaro Jurado MD [facility] ([facility]) [address] [place] [address], [address], 11/27/2022 09:40:55 11/26/19 23 11/27/2022 GGT GGT 103 IU/L 0-60 high Not Available Rosemarie Jurado MD [facility] ([facility]) [address] [place] [address], [address], 11/27/2022 09:40:54 11/26/19 23 11/27/2022 RENAL PANEL (10) glucose 317 mg/dL 70-99 high Not Available Rosemarie Jurado MD [facility] ([facility]) [address] [place] [address], [address], 11/27/2022 09:40:54 11/26/19 23 11/27/2022 RENAL PANEL (10) BUN 10 mg/dL 8-27 Not Available Rosemarie Jurado MD [facility] (In House Lab) [address] [place], [address], 11/27/2022 09:40:54 11/26/19 23 11/27/2022 RENAL PANEL (10) creatinine 0.74 mg/dL 0.57-1 .00 Not Available Rosemarie Jurado MD [facility] (In House Lab) [address] [place], [address], 11/27/2022 09:40:54 11/26/19 23 11/27/2022 RENAL PANEL (10) BUN/creatini ne ratio 14 12-28 Not Available Genaro Jurado MD [facility] (In House Lab) [address] [place], [address], 11/27/2022 09:40:54 11/26/19 23 11/27/2022 RENAL PANEL (10) sodium 139 mmol/ L 134-14 4 Not Available Rosemarie Jurado MD [facility] (In House Lab) [address] [place] [address], [address], 11/27/2022 09:40:54 11/26/19 23 11/27/2022 RENAL PANEL (10) potassium 4.4 mmol/ L 3.5-5. 2 Not Available Rosemarie Jurado MD [facility] (In House Lab) [address] [place], [address], 11/27/2022 09:40:54 11/26/19 23 11/27/2022 RENAL PANEL (10) chloride 101 mmol/ L 96-106 Not Available Rosemarie Jurado MD [facility] (In House Lab) [address] [place], [address], 11/27/2022 09:40:54 11/26/19 23 11/27/2022 RENAL PANEL (10) carbon dioxide, total 25 mmol/ L 20-29 Not Available Rosemarie Jurado MD [facility] (In House Lab) [address] [place], [address], 11/27/2022 09:40:54 11/26/19 23 11/27/2022 RENAL PANEL (10) calcium 8.7 mg/dL 8.7-10 .3 Not Available Rosemarie Jurado MD [facility] (In House Lab) [address] [place] [address], [address], 11/27/2022 09:40:54 11/26/19 23 11/27/2022 RENAL PANEL (10) phosphorus 3.9 mg/dL 3.0-4. 3 Not Available Rosemarie Jurado MD [facility] (In House Lab) [address] [place] [address], [address], 11/27/2022 09:40:54 11/26/1911/27/2022 RENAL PANEL (10) albumin 3.7 g/dL 3.8-4. 9 low Not Available Rosemarie Jurado MD [facility] (In House Lab) [address] [place] [address], [address], 11/27/2022 09:40:54 11/26/1911/27/2022 HEPAT IC FUNCT ION PANEL (7) protein, total 7.2 g/dL 6.0-8. 5 Not Available Rosemarie Jurado MD [facility] (In House Lab) [address] [place] [address], [address], 11/27/2022 09:40:53 11/26/1911/27/2022 HEPAT IC FUNCT ION PANEL (7) bilirubin, total 1.3 mg/dL 0.0-1. 2 high Not Available Rosemarie Jurado MD [facility] (In House Lab) [address] [place] [address], [address], 11/27/2022 09:40:53 11/26/19 23 11/27/2022 HEPAT IC FUNCT ION PANEL (7) bilirubin, direct 0.51 mg/dL 0.00-0 .40 high Not Available Rosemarie Jurado MD [facility] (In House Lab) [address] [place] [address], [address], 11/27/2022 09:40:53 11/26/19 11/27/2022 HEPAT IC FUNCT ION PANEL (7) alkaline phosphatase 182 IU/L 44-121 high Not Available Hilario Jurado MD [facility] (In House Lab) [address] [place], [address], 11/27/2022 09:40:53 11/26/19 23 11/27/2022 HEPAT IC FUNCT ION PANEL (7) AST (SGOT) 57 IU/L 0-40 high Not Available Rosemarie Jurado MD [facility] (In House Lab) [address] [place], [address], 11/27/2022 09:40:53 11/26/19 23 11/27/2022 HEPAT IC FUNCT ION PANEL (7) ALT (SGPT) 25 IU/L 0-32 Not Available Rosemarie Jurado MD [facility] (In House Lab) [address] [place], [address], 11/27/2022 09:40:53 11/26/19 23 11/26/2022 UDM LABCO [...] expec michael outco me. (emanavid [email or web address] gemen [email or web address] or call toll- free [phone]) . Drug brand s, if liste d herei n, are trade lorenzo of their respe ctive bus and trolley dispatcher s. Not Available Rosemarie Jurado MD [facility] (In House Lab) [address] [place], [address], 12/01/2022 09:42:55 11/26/19 23 11/27/2022 UDM LABCO RP-U1 0 UNBUN D+ALC +SVT amphetamines screen, urine Negati ve NG/mL cutoff =1000 Not Available Rosemarie Jurado MD [facility] (In House Lab) [address] [place] [address], [address], 12/01/2022 09:42:55 11/26/19 23 11/27/2022 UDM LABCO RP-U1 0 UNBUN D+ALC +SVT barbiturates screen, urine See Final Result s NG/mL cutoff =200 Not Available Rosemarie Jurado MD [facility] (In House Lab) [address] [place] [address], [address], 12/01/2022 09:42:55 11/26/19 23 11/27/2022 UDM LABCO RP-U1 0 UNBUN D+ALC +SVT benzodiazepi lisbet screen, urine Negati ve NG/mL cutoff =200 Not Available Rosemarie Jurado MD [facility] (In House Lab) [address] [place] [address], [address], 12/01/2022 09:42:55 11/26/19 23 11/27/2022 UDM LABCO RP-U1 0 UNBUN D+ALC +SVT cannabinoid screen, urine Negati ve NG/mL cutoff =20 Not Available Rosemarie Jurado MD [facility] (In House Lab) [address] [place] [address], [address], 12/01/2022 09:42:55 11/26/19 23 11/27/2022 UDM [facility]CO RP-U1 0 UNBUN D+ALC +SVT cocaine (metab.) screen, urine Negati ve NG/mL cutoff =300 Not Available Rosemarie Jurado MD [facility] ([facility]) [address] [place] [address], [address], 12/01/2022 09:42:55 11/26/19 23 11/27/2022 UDM [facility] RP-U1 0 UNBUN D+ALC +SVT opiate screen, urine Negati ve NG/mL cutoff =300 Opiat e test inclu hal Codei ne, Morph ine, Canfield morph one, Canfield codon e. Not Available Rosemarie Jurado MD [facility] ([facility]) [address] [place] [address], [place], [address], 12/01/2022 09:42:55 11/26/19 23 11/27/2022 UDM [facility] RP-U1 0 UNBUN D+ALC +SVT 6-acetylmorp svitlana, urine Negati ve NG/mL cutoff =10 Not Available Rosemarie Jurado MD [facility] (In House Lab) [address] [place] [address], [address], 12/01/2022 09:42:55 11/26/19 23 11/27/2022 U[facility] RP-U1 0 UNBUN D+ALC +SVT oxycodone/ox ymorphone, urine Negati ve NG/mL cutoff =100 Test inclu hal Oxyco done and Oxymo rphon e Not Available Rosemarie Jurado MD [facility] (In House Lab) [address] [place] [address], [address], 12/01/2022 09:42:55 11/26/19 23 11/27/2022 UDM LABCO RP-U1 0 UNBUN D+ALC +SVT methadone screen, urine Negati ve NG/mL cutoff =300 Not Available Rosemarie Jurado MD [facility] (In House Lab) [address] [place] [address], [address], 12/01/2022 09:42:55 11/26/19 23 11/27/2022 UDM [facility] RP-U1 0 UNBUN D+ALC +SVT buprenorphin e, urine Negati ve NG/mL cutoff =10 Not Available Rosemarie Jurado MD [facility] (In House Lab) [address] [place], [address], 12/01/2022 09:42:55 11/26/1911/27/2022 U[facility] RP-U1 0 UNBUN D+ALC +SVT ethanol, urine Negati ve mg/dL cutoff =0.020 Not Available Rosemarie Jurado MD [facility] ([facility]) [address] [place] [address], [address], 12/01/2022 09:42:55 11/26/19 23 11/27/2022 U[facility] RP-U1 0 UNBUN D+ALC +SVT creatinine, urine 262.9 mg/dL 20.0-3 00.0 Not Available Rosemarie Jurado MD [facility] ([facility]) [address] [place], [address], 12/01/2022 09:42:55 11/26/19 23 11/27/2022 [facility] RP-U1 0 UNBUN D+ALC +SVT pH, urine 6.2 4.5-8. 9 Not Available Rosemarie Jurado MD [facility] ([facility]) [address] [place], [address], 12/01/2022 09:42:55 04/04/2004/04/2023 BENZO DIAZE TRE CONFI RMATI ON,UR INE abnormal status abnormal Not Available Genaro Jurado MD [facility] ([facility]) [address] [place], [address], 04/11/2023 16:41:25 04/04/20 23 04/05/2023 UDM LABCO [...] michael outco me. (emai l-asim nmana gemen [email or web address] or call toll- free [phone]) . Drug brand s, if liste d herei n, are trade lorenzo of their respe ctive bus and trolley dispatcher s. Not Available Rosemarie Jurado MD [facility] ([facility]) [address] [place], [address], 04/11/2023 16:41:24 04/04/20 23 04/07/2023 [facility] RP-U1 0 UNBUN D+ALC +SVT amphetamines screen, urine Negati ve NG/mL cutoff =1000 Not Available Rosemarie Jurado MD [facility] (In House Lab) [address] [place] [address], [address], 04/11/2023 16:41:24 04/04/20 23 04/07/2023 [facility] RP-U1 0 UNBUN D+ALC +SVT barbiturates screen, urine Negati ve NG/mL cutoff =200 Not Available Rosemarie Jurado MD [facility] (In House Lab) [address] [place] [address], [address], 04/11/2023 16:41:24 04/04/20 23 04/07/2023 [facility] RP-U1 0 UNBUN D+ALC +SVT benzodiazepi lisbet screen, urine See Final Result s NG/mL cutoff =200 Not Available Rosemarie Jurado MD [facility] (In House Lab) [address] [place] [address], [address], 04/11/2023 16:41:24 04/04/20 23 04/07/2023 [facility] RP-U1 0 UNBUN D+ALC +SVT cannabinoid screen, urine Negati ve NG/mL cutoff =20 Not Available Rosemarie Jurado MD [facility] (In House Lab) [address] [place] [address], [address], 04/11/2023 16:41:24 04/04/20 23 04/07/2023 [facility] RP-U1 0 UNBUN D+ALC +SVT cocaine (metab.) screen, urine Negati ve NG/mL cutoff =300 Not Available Rosemarie Jurado MD [facility] ([facility]) [address] [place] [address], [address], 04/11/2023 16:41:24 04/04/20 23 04/07/2023 [facility] RP-U1 0 UNBUN D+ALC +SVT opiate screen, urine Negati ve NG/mL cutoff =300 Opiat e test inclu hal Codei ne, Morph ine, Canfield morph one, Canfield codon e. Not Available Rosemarie Jurado MD [facility] (In House Lab) [address] [place] [address], [address], 04/11/2023 16:41:24 04/04/20 23 04/07/2023 [facility] RP-U1 0 UNBUN D+ALC +SVT 6-acetylmorp svitlana, urine Negati ve NG/mL cutoff =10 Not Available Rosemarie Jurado MD [facility] ([facility]) [address] [place] [address], [address], 04/11/2023 16:41:24 04/04/20 23 04/07/2023 [facility] RP-U1 0 UNBUN D+ALC +SVT oxycodone/ox ymorphone, urine Negati ve NG/mL cutoff =100 Test inclu hal Oxyco done and Oxymo rphon e Not Available Rosemarie Jurado MD [facility] (In House Lab) [address] [place] [address], [address], 04/11/2023 16:41:24 04/04/20 23 04/07/2023 [facility] RP-U1 0 UNBUN D+ALC +SVT methadone screen, urine Negati ve NG/mL cutoff =300 Not Available Rosemarie Jurado MD [facility] (In House Lab) [address] [place] [address], [address], 04/11/2023 16:41:24 04/04/20 23 04/07/2023 [facility] RP-U1 0 UNBUN D+ALC +SVT buprenorphin e, urine Negati ve NG/mL cutoff =10 Not Available Rosemarie Jurado MD [facility] ([facility]) [address] [place] [address], [address], 04/11/2023 16:41:24 04/04/20 23 04/07/2023 [facility] RP-U1 0 UNBUN D+ALC +SVT ethanol, urine Negati ve mg/dL cutoff =0.020 Not Available Rosemarie Jurado MD [facility] ([facility]) [address] [place], [address], 04/11/2023 16:41:24 04/04/20 23 04/07/2023 [facility] RP-U1 0 UNBUN D+ALC +SVT creatinine, urine 216.4 mg/dL 20.0-3 00.0 Not Available Rosemarie Jurado MD [facility] ([facility]) [address] [place], [address], 04/11/2023 16:41:24 04/04/20 23 04/07/2023 [facility] RP-U1 0 UNBUN D+ALC +SVT pH, urine 6.8 4.5-8. 9 Not Available Rosemarie Jurado MD [facility] ([facility]) [address] [place], [address], 04/11/2023 16:41:24 Result Notes None recorded. Problems Name Problem SNOMED Code Status Onset Date Resolution Date Notes Provider Name and Address Organization Details Recorded Time Chronic neck pain 558691440058 7 Active 2022 [facility] 10:56:03 Chronic back pain 344581192 Active 2022 [facility] 10:56:12 Pain of knee region 2797024797 Active 2022 bilateral [facility] 10:56:40 Deep venous thrombosi s 539584214 Active 2022 [facility] 10:57:25 Diabetes mellitus 61459601 Active 2022 [facility] 10:57:35 Chronic urinary tract infection 908541591 Active 2022 [facility] 10:57:48 Acid reflux 338989335 Active 2022 [facility] 10:57:58 Ulcer 932748606 Active 2022 [facility] 10:58:06 Obesity 880244376 Active 2022 [facility] 10:58:14 Irritable bowel syndrome 96203587 Active 2022 [facility] 10:58:23 Bilateral cataracts 08649526 Active 2022 [facility] 10:58:39 Sinusitis 66009665 Active 2022 [facility] 10:58:47 Hearing loss 06522668 Active 2022 [facility] 10:58:55 Sudden visual loss 41229859 Active 2022 [facility] 10:59:11 Temporoma ndibular joint disorder 00794297 Active 2022 [facility] 10:59:24 Has difficult y with speech 192594629 Active 2022 [facility] 10:59:34 Syncope 512426194 Active 2022 [facility] 11:40:54 Osteoarth ritis 741357769 Active 2022 [facility] 11:41:08 Carpal tunnel syndrome 61847613 Active 2022 [facility] 11:41:19 Degenerat ion of intervert ebral disc 93033628 Active 2022 [facility] 11:41:33 Headache 29536901 Active 2022 [facility] 11:41:41 Migraine 72429529 Active 2022 [facility] 11:41:48 Injury of head 78975777 Active 2022 [facility] 11:41:58 Chronic confusion 559932555 Active 2022 [facility] 11:42:08 Amnesia 67240992 Active 2022 [facility] 11:42:28 Asthma 550940941 Active 2022 [facility] 11:42:36 Sleep apnea 42227392 Active 2022 [facility] 3 11:42:44 Depressiv e disorder 43514151 Active 2022 [facility] 3 11:42:51 Anxiety 77207733 Active 2022 [facility] 3 [...] Address Organization Details Last Updated DateTime 3 51100.5 9 g 30.8 kg/m2 165.1 cm 97.9 [degF] 16 /min 80 /min 117/70 mm[Hg] [facility]ler [facility] 3 08:42:41 Date Recorded Body height Body temperature Respiratory rate Heart rate Body mass index (BMI) Body weight Systolic And Diastolic Provider Name and Address Organization Details Last Updated DateTime 3 165.1 cm 96.8 [degF] 16 /min 74 /min 32 kg/m2 81138.7 4 g 105/57 mm[Hg] Shwetha Lindquist audra [...] cm 97.5 [degF] 16 /min 32 kg/m2 68199.7 4 g 73 /min 99/59 mm[Hg] Shwetha [facility] 3 10:18:56 Social History Question Answer Notes LastModified by [email or web address] ion Details LastModified Time Tobacco Smoking Status Never Smoker [facility] 11/25/2022 11:47:51 Are You Blind Or Do You Have Difficulty Seeing? Yes [email or web address] Information not available 11/26/2022 Are You Deaf Or Do You Have Serious Difficulty Hearing? Yes [email or web address] Information not available 11/26/2022 What Is The Highest Grade Or Level Of School You Have Completed Or The Highest Degree You Have Received? OB07133-3 [email or web address] Information not available 11/26/2022 What Is Your Relationship Status? Information not available 11/25/2022 Do You Have Difficulty Walking Or Climbing Stairs? Yes [email or web address] Information not available 11/26/2022 Are You Currently In School? No [email or web address] Information not available 11/25/2022 Sex: Unknown Functional Status Question Answer Note LastModified by Organizat ion Details LastModified Time Do you use any illicit or recreational drugs? No [email or web address] Information not available 11/25/2022 What is your level of alcohol consumption? None [email or web address] Information not available 11/25/2022 Are you currently employed? No disabled since 2016 [email or web address] Information not available 11/25/2022 Are you able to walk independently without assistance or assistive devices? YESASSIST [email or web address] Information not available 11/26/2022 Do you have difficulty doing errands alone? Yes [email or web address] Information not available 11/26/2022 Are you able to care for yourself independently? Yes [email or web address] Information not available 11/26/2022 Do you have difficulty dressing, bathing, grooming, or toileting? No [email or web address] Information not available 11/26/2022 Mental Status Question Answer Note LastModified by Organizat ion Details LastModified Time Do you feel stressed (tense, restless, nervous, or anxious, or unable to sleep at night)? [id number] [email or web address] Information not available 11/26/2022 Do you have difficulty concentrating, remembering or making decisions? Yes [email or web address] Information no t available 11/26/2022 Family History Relationship Description Onset Age of this Age Resolved Age Notes LastModified by Organization Details LastModified Time Mother Disorder of thyroid gland [email or web address] Not available 08:44:08 Mother Diabetes mellitus [email or web address] Not available 08:44:40 Mother Arthritis [email or web address] Not ender ilable 11/26/2022 08:45:14 Father Diabetes mellitus [email or web address] Not available 08:44:40 Father Arthritis [email or web address] Not ender ilable 11/26/2022 08:45:14 Sister Diabetes mellitus [email or web address] Not available 08:44:40 Sister Arthritis [email or web address] Not ender ilable 11/26/2022 08:45:14 Son Diabetes mellitus [email or web address] Not available 08:44:40 Son Arthritis [email or web address] Not ender ilable 11/26/2022 08:45:15 Son Arthritis [email or web address] Not ender ilable 11/26/2022 08:45:15 Medical History Condition Response Coronary Artery Disease Y Gout Y Head Trauma/Injury Y Hernia N Thyroid Problems N Depression Y COPD N Anemia N MVA N Ulcers N Heart Attack (MS) N Diabetes Y Anxiety Disorder Y Bleeding Disorder N Arthritis Y Tuberculosis N AIDS/HIV N Acid Reflux (GERD) Y Cancer N Stroke N Asthma Y Substance Abuse N Back Injury Y High Cholesterol N Hepatitis N Liver Disease Y Heart Disease N Headaches Y Fibromyalgia N Hypertension N Osteoporosis N Kidney Disease N Gynecological HistoryNo gynecological history recorded. Obstetrics History GPAL:G 0 P 0 0 0 0 Past Encounters Encounter ID Performer Location Encounter Start Date Encounter Closed Date Diagnosis/Indication Diagnosis SNOMED-CT Code Diagnosis ICD10 Code Diagnosis IMO Codes Diagnosis Note [id number] Allen Joseph MD [address] [place] [phone] 4 11/26/2022 07:50:17 12/08/2022 17:05:25 Long-term current use of opiate analgesic drug 6480539431 29925 Z79.891 Diagnostic /Lab: Order Presumptiv e UDT [...] . Spinal keith nosis of lumbar region 92720375 M48.062 Neuritis d ue to rupture of lumbar intervertebral disc 1293906886 M51.16 [id number] Allen Joseph MD [address] [place] [id number] 4 01/28/2023 10:04:09 02/14/2023 07:48:53 Long-term current use of opiate analgesic drug 7632904788 40141 Z79.891 Diagnostic /Lab: Order Presumptiv e UDT [...] and carisoprod ol). Spondylosi s without myelopathy 94251626 M47.9 Pain of le ft knee region 2449852924 38477 M25.598 [id number] ANAMARIA GARCIA MD [address] [place] [phone] 4 04/04/2023 14:41:31 04/04/2023 15:22:14 Long-term current use of opiate analgesic drug 4605734097 15585 Z79.891 Lumbar spondylosis 33171 0009 M47.490 [id number] ANAMARIA GARCIA MD [address] [place] [address] [phone] 4 05/31/2023 10:10:07 06/02/2023 10:56:00 Osteoarthritis 894792290 M19.90 Lumbar spondylosis 34005 0009 M47.896 Long-term current use of opiate analgesic drug 9259363664 23783 Z79.891 Diagnostic /Lab: Order Presumptiv e UDT [...] (MEDICARE REPLACEMENT/A DVANTAGE - PPO) Gabi Zimmer [id number] Gabi Zimmer Notes Date Note Type Note [...] [facility] 01/28/2023 11:22:24 04/04/2023 text/html [facility] report reviewed and compliant. Fell [...] does want any injections. ANAMARIA GARCIA MD [address] [facility], [place], [address], [facility] 04/04/2023 15:01:36 05/31/2023 text/html [facility] report reviewed and compliant . She had a bladder stim put in yesterday. Pain is near the site. of insertions. Pain is intermittent.. Pain is intense and severe. Pain meds work ok ANAMARIA GARCIA MD [address] [facility], [place], [address], [facility] 05/31/2023 10:29:08 OBGyn Episode No OBEpisode recorded.
--- OUTSIDE RECORDS SUMMARY | 2025-09-15 01:33 | XMS_ITS | Encounter Summary ---
Author Organization [facility], [facility] Address [address] [place] [phone] Phone Care Team Providers Care Trace Evidence Technician Name Role Phone Taina Lyles Primary Care Provider [phone] Reason for Visit * Reason Comments Med Refill Encounter Details Date Type Department Care Team (Late st Contact Info) Description 10/17/2021 Refill [facility], [address] [address] Kvng Yepez, [place] Social History [...] on filedocumented in this encounter Care Teams Trace Evidence Technician Relationship Specialty Start Date End Date Taina Lyles [address] [place] [address] PCP - General 05/02/23 documented as of this encounter
--- OUTSIDE RECORDS SUMMARY | 2025-09-15 01:33 | XMS_ITS | Clinical Summary ---
Author Organization [facility] Address [address] [place] [address] Care Team Providers Care Physical Fitness Trainer Name Role Phone Taina Lyles APRN Primary Care Provider [phone] Allergies No known active allergies Medications * [...] (11/02/2022): Added automatically from request for surgery [id number] Colon cancer screening 09/20/201910/26 Overview (09/20/2019): Added automatically from request for surgery [id number] Immunizations Immunization Administration Dates Next Due Flu [...] Grandmother Mamaw Mayelin Parkinsonism Maternal Grandmother Mamaw Myaelin Arthritis Mother Karime Diabetes Mother Karime Hyperlipidemia [...] 10/22/2025 10/22/2024, 12/2023, 10/02/2024, Additional history exists MAMMOGRAM 01/25/2026 01/26/2024, 05/2024, 10/21/2022, Additional history exists HEMOGLOBIN A1C 02/24/2026 08/26/2025, 01/2025, 05/23/2025, Additional history exists ANNUAL WELLNESS VISIT 06/05/2026 06/05/2025 COLONOSCOPY 01/14/2028 01/14/2023, 12/23, 09/27/2019, Additional history exists COLORECTAL CANCER SCREENING 01/14/2028 TDAP/TD VACCINES (2 - Td or Tdap) 07/17/2029 019 ZOSTER VACCINE Completed 10/30/2019, 07/17/2019 HEPATITIS C SCREENING Completed 10/22/2024 , 10/22/2024, 10/02/2024, Additional history exists Medical Devices Implanted Type Area Assembler Type Bar And Segment Device Identifier Shelf Expiration Date Model / Serial / Lot Implant Implant Description:BILATERAL IOL Clip Gi Lig Hemostasis Resolution 2.8mm - [id number] Implanted:Qty: 1 on 09/27/2019 by Ross Johnson MD at [facility] Implant [employer] BERNARDINO 01/02/2022 [id number] / / [id number] Dev Clip Quickclippro Fix 2300mm - [id number] Implanted:Qty: 2 on 09/27/2019 by Ross Johnson MD at [facility] Implant [facility] 05/20/2022 HX20 2URA / / 97K Dev Clip Quickclippro Fix 2300mm - [id number] Implanted:Qty: 2 on 09/27/2019 by Ross Johnson MD at [facility] Implant [facility] 04/20/2022 HX20 2URA / / 96K Dev Clip Endo [id number] Contrl Rot 235cm - [id number] Implanted:Qty: 1 on 01/14/2023 by Lori Rm MD at [facility] Implant N/A: [employer]al [employer] BERNARDINO 09/27/2025 [id number] / / [id number] Procedures Procedure Name Priority Date/Time Associated Diagnosis [...] - 200 mg/dL 06/16/2024 12:02 AM EDT [facility] Triglycerides 113 0 - 150 mg/dL 06/16/2024 12:02 AM EDT [facility] HDL Cholesterol 51 40 - 60 mg/dL 06/16/2024 12:02 AM EDT [facility] LDL Cholesterol 79 0 - 100 mg/dL 06/16/2024 12:02 AM EDT [facility] VLDL Cholesterol 20 5 - 40 mg/dL 06/16/2024 12:02 AM EDT [facility] LDL/HDL Ratio 1.50 06/16/2024 12:02 AM EDT [facility] Blood Venipuncture / Unknown 06/15/2024 2:00 PM EDT 06/15/2024 3:40 PM EDT Narrative [facility] - 06/16/2024 12:02 AM EDT Cholesterol [...] MD LAB BLOOD ORDERABLES Final Resul t [facility]
[address] [place] [address], * Mammo Diagnostic Digital Tomosynthesis Bilateral With [...] compatible with focal fat necrosis. Taina Lyles DRIVE SHAFT AND STEERING POST REPAIRER IMG MAMMOGRAPHY ORDERABLES Fin al Result * COLONOSCOPY (01/14/2023 9:24 AM EST) Lori Rm MD INTERFACE NEEDS Final Re sult * UPPER GI ENDOSCOPY (12/13/2022 7:32 AM EST) Lori Rm MD INTERFACE NEEDS Final Re sult * Hepatitis C Antibody (10/28/2022 8:43 AM EST) Hepatitis C Ab Non-Reacti ve Non-Reacti ve 10/28/2022 7:36 PM EST [facility] Blood Venipuncture / Unknown 10/28/2022 8:43 AM EST 10/28/2022 9:21 AM EST [facility] - 10/28/2022 7:36 PM EST Results may be falsely decreased if patient taking Biotin. Mira Amin APRN LAB BLOOD ORDERABLES Final Result [facility]
[address] [place] [address], * (ABNORMAL) Hemoglobin A1c (11/24/2020 10:43 AM EST) Hemoglobin A1C 11.50(H) 4.80 - 5.60 % 11/24/2020 11:15 AM EST [facility] Blood Venipuncture / Unknown 11/24/2020 10:43 AM EST 11/24/2020 11:01 AM EST [facility] - 11/24/2020 11:15 AM EST Hemoglobin A1C Ranges: Increased Risk for Diabetes 5.7% to 6.4% Diabetes >= 6.5% Diabetic Goal < 7.0% Hang Coley MD LAB BLOOD ORDERABLES Final Res ult [facility]
[address] [place] [address], [place] [phone] from Last 3 Months or Most Recently Relevant to Health Maintenance [place] [address] [address] [place] [address] MEDICARE ADVANTAGE PPO Advance Directives * CPR (Attempt to Resuscitate) (Latest Code Status on File) Date Activated Date Inactivated Comments 11/30/2022 11:52 PM 12/02/2022 6:26 PM Question Answer Comments Code Status (Patient has no pulse and is not breathing): CPR (Attempt to Resuscitate) Medical Interventions (Patie nt has pulse or is breathing): Full Support Level Of Support Discussed With: Patient Care Teams Physical Fitness Trainer Relationship Specialty Start Date End Date Taina Lyles APRN PCP - General Nurse Practitioner 12/30/22
--- OUTSIDE RECORDS SUMMARY | 2025-09-15 01:33 | XMS_ITS | Encounter Summary ---
Author Organization [facility] Address [address] [place] [address] Care Team Providers Care Tree Puller Name Role Phone Lea Fernando Unavailable [phone] Rachel Ray VOICE NETWORK ENGINEER Unavailable [phone] Alvarez Zimmer MD Primary Care Provider [phone] Tamera Isabel FRAME COVERER Unavailable UnavailAlina Bedolla RN Unavailable Unavailab Monique Che FRAME COVERER Unavailable Unavailable Shaniqua Trevino FRAME COVERER Unavailable Unavailable Lillie Pritchard MD Primary Care Provider [phone] Reason for Visit * Reason Onset Date Comments Med Refill 04/19/2025 Encounter Details Date Type Department Care Team (Late st Contact Info) Description 04/19/2025 Refill [facility] [address] [place] [address] Alvarez Zimmer MD [address] [place] [address] Social History Tobacco Use [...] week 01/10/2025 How often do you attend [facility] or jehovah's witness services? Patient unable [...] first t kennedy in the morning (EYE-MANAGER DATA WAREHOUSING) to steady your nerves or to get rid of a hangover? 0 10/22/2024 CAGE Questionnaire Score 0 024 Utilities Answer Date Recorded In the past 12 months has th [employer] electric, gas, oil, or water company threatened [...] Clinical Support [facility] [address] [place] [address] 09/17/2025 10:30 [address] [facility] [address] [place] [address] Lea Reilly, [place], [place] [id number] 09/17/2025 11:20 AM EDT Office Visit [facility] [address] [place] [address] Octavia Herrera, PA [address] [place] [address] 09/19/2025 10:30 AM EDT Appointment [facility] [address] [place] [address] 09/19/2025 11:30 AM EDT Appointment [facility] [address] [place] [address] 09/26/2025 7:30 AM EST Appointment [facility] [address] [place] [address] 09/26/2025 8:30 AM EST Appointment [facility] [address] [place] [address] 10/01/2025 9:00 AM EST Office Visit [facility] [address] [place] [address] Lillie Pritchard MD [address] [place] [id number] 10/03/2025 12:30 PM EST Appointment [facility] [address] [place] [address] 10/03/2025 1:30 PM EST Appointment [facility] [address] [place] [address] 12/20/2025 11:00 AM EST Office Visit [facility] Endocrinology [address] [place] [address] Miranda Hobson P, VOICE NETWORK ENGINEER [address] [place] [address] documented as of this encounter [...] documented as of this encounter Care Teams Tree Puller Relationship Specialty Start Date End Date Alvarez Zimmer MD [address] [place] [phone] PCP - General Family Medicine 12/07/24 09/02/25 Lillie Pritchard MD [address] [place] [address] [id number] PCP - General Family Medicine 09/03/25 Lea Fernando [address] [place] [address] Assembler [employer] Endocrinology 08/29/24 Rachel Ray, VOICE NETWORK ENGINEER [address] [place] [address] Nurse Practitioner Gastroenterology 09/24/24 Tamera Isabel LPN VALUE-BASED TRANSFORMATION PROGRAM Licensed Practical Nurse 05/29/25 Alina Lovett, RN [facility]-VASCULAR & INTERVENTIONAL RADIOLOGY Registered Nurse 06/26/25 06/26/25 Monique Tapia LPN VALUE-[place] [address] TCM Nurse 07/10/25 08/09/25 Shaniqua Trevino LPN TCM Nurse 08/21/25 documented as of this encounter
--- OUTSIDE RECORDS SUMMARY | 2025-09-15 01:33 | XMS_ITS | Encounter Summary ---
Author Organization [facility] Address [address] [place] [address] Care Team Providers Care Sales And Marketing Coordinator Name Role Phone eLa Fernando Unavailable [phone] Rachel Ray RETAIL SALES VITAMIN CONSULTANT Unavailable [phone] Alvarez Zimmer MD Primary Care Provider [phone] Tamera Isabel FAMILY AND MARRIAGE COUNSELLOR Unavailable UnavailAlina Bedolla RN Unavailable Unavailab Monique Che FAMILY AND MARRIAGE COUNSELLOR Unavailable Unavailable Shaniqua Trevino FAMILY AND MARRIAGE COUNSELLOR Unavailable Unavailable Lillie Pritchard MD Primary Care Provider [phone] Reason for Visit * Reason Onset Date Comments Med Refill 03/16/2025 Encounter Details Date Type Department Care Team (Late st Contact Info) Description 03/16/2025 Refill [facility] [address] [place] [address] Alvarez Zimmer MD [address] [place] [address] Social History Tobacco Use Types [...] you attend [facility] or denominational services? Patient unable to [...] Recorded Patient Health Questionnaire-2 Score 0 03/06/2025 [facility] of Occupat [...] drink first t kennedy in the morning (EYE-RECLAMATION FURNACE OPERATOR) to steady your nerves or to get rid of a hangover? 0 10/22/2024 CAGE Questionnaire Score 0 024 Utilities Answer Date Recorded In the past 12 months has [employer] electric, gas, oil, or water company threatened [...] Description 09/17/2025 9:45 AM EDT Clinical Support [facility] [address] [place] [address] [place] [address] 09/17/2025 10:30 AM EDT Social Work [facility] [address] [place] [place] [address] Lea Reilly, [place] [id number] 09/17/2025 11:20 AM EDT Office Visit [facility] [place] [address] [place] [address] Octavia Herrera, PA [address] [place] [address] [place] [address] 09/19/2025 10:30 AM EDT Appointment [facility] [address] [place] [address] 09/19/2025 11:30 AM EDT Appointment [facility] [address] [place] [address] 09/26/2025 7:30 AM EST Appointment [facility] [address] [place] [address] 09/26/2025 8:30 AM EST Appointment [facility] [address] [place] [address] 10/01/2025 9:00 AM EST Office Visit [facility] [address] [place] [address] Lillie Pritchard MD [address] [place] [address] 10/03/2025 12:30 PM EST Appointment [facility] [address] [place] [address] 10/03/2025 1:30 PM EST Appointment [facility] [address] [place] [address] 12/20/2025 11:00 AM EST Office Visit [facility] Endocrinology [address] [place] [address] Miranda Hobson, RETAIL SALES VITAMIN CONSULTANT [address] [place] [address] documented as of this encounter Visit Diagnoses [...] this encounter Care Teams Sales And Marketing Coordinator Relationship Specialty Start Date End Date Alvarez Zimmer MD [address] [place] [address] PCP - General Family Medicine 12/07/24 09/02/25 Lillie Pritchard MD [address] [place] [id number] PCP - General Family Medicine 09/03/25 Lea Fernando [address] [facility] [address] [place] [address] State Assessed Properties Director Endocrinology 08/29/24 Rachel Ray, RETAIL SALES VITAMIN CONSULTANT [address] [place] [facility] [address] [place] [address] Nurse Practitioner Gastroenterology 09/24/24 Tamera Isabel LPN VALUE-BASED TRANSFORMATION PROGRAM Licensed Practical Nurse 05/29/25 Alina Lovett, RN CH-VASCULAR & INTERVENTIONAL RADIOLOGY Registered Nurse 06/26/25 06/26/25 Monique Tapia LPN VALUE-[place] [address] TCM Nurse 07/10/25 08/09/25 Shaniqua Trevino LPN TCM Nurse 08/21/25 documented as of this encounter
--- OUTSIDE RECORDS SUMMARY | 2025-09-15 01:34 | XMS_ITS | Encounter Summary ---
Author Organization [facility] Address [address] [place] [address] Care Team Providers Care Technology Recruiter Name Role Phone Lea Fernando Unavailable [phone] Rachel Ray AUDIT MGR Unavailable [phone] Alvarez Zimmer MD Primary Care Provider [phone] Tamera Isabel LEAF SIZE PICKER Unavailable Unavailabl e Encounter Details Date Type [...] often do you attend [facility] or roman catholic services? Never 05/29/2025 Do [...] more drinks on one occasion? Never 06/25/2025 [facility] [place] of Occupat ional [facility] - Occupational Stress Questionnaire Answer Date [...] living in a custodial (including now)? No 08/19/2025 [facility] Utilities Answer Date Recorded In the [...] first t kennedy in the morning (EYE-SUPERVISOR RUBBER COVERING) to steady your nerves or to get [...] Month) No 08/20/2025 8:00 AM EDT Bill Booth, RN 2. Non-Specific Active Suici liz Thoughts (Past 1 Month) No 08/20/2025 8:00 AM EDT Rachael Booth, PARK 6. Suicidal Behavior (Lifetime) No 8:00 AM EDT Laverne Booth, PARK documented as of this encounter Plan of Treatment Upcoming Encounters Date Type Department Care Team (Late st Contact Info) Description 09/17/2025 9:45 AM EDT Clinical Support [facility] [place] [address] [place] [address] 09/17/2025 10:30 AM EDT Social Work [facility] [place] [address] [facility] [address] [place] [address] Lea Reilly, [place] MACHINE OPER[place] [phone] 09/17/2025 11:20 AM EDT Office Visit [facility] [address] [place] [address] Octavia Herrera, PA [address] [place] [address] 09/19/2025 10:30 AM EDT Appointment [facility] [address] [place] [address] 09/19/2025 11:30 AM EDT Appointment [facility] [address] [place] [address] 09/26/2025 7:30 AM EST Appointment [facility] [address] [place] [address] 09/26/2025 8:30 AM EST Appointment [facility] [address] [place] [address] 10/01/2025 9:00 AM EST Office Visit [facility] [address] [place] [address] Lillie Pritchard MD [address] [place], [place] [phone] 10/03/2025 12:30 PM EST Appointment [facility] [address] [place] [address] 10/03/2025 1:30 PM EST Appointment [facility] [address] [place] [address] 12/20/2025 11:00 AM EST Office Visit [facility] [address] [place] [address] Miranda Hobson, AUDIT MGR [address] [facility] [address] [place] [address] documented as of this encounter [...] documented as of this encounter Care Teams Technology Recruiter Relationship Specialty Start Date End Date Alvarez Zimmer MD [address] [place] [address] PCP - General Family Medicine 12/07/24 09/02/25 Lea Fernando [address] [facility] [address] [place] [address] Ore Smelter Endocrinology 08/29/24 Rachel Ray, AUDIT MGR [address] [place] [address] Nurse Practitioner Gastroenterology 09/24/24 Tamera Isabel LPN VALUE-BASED TRANSFORMATION PROGRAM Licensed Practical Nurse 05/29/25 documented as of this encounter
--- OUTSIDE RECORDS SUMMARY | 2025-09-15 01:34 | XMS_ITS | Clinical Summary ---
Author Organization [facility] Address [address] [place] [address] Care Team Providers Care Tube Dispatcher Name Role Phone Lea Fernando Unavailable [phone] Rachel Ray TRAY CASTING MACHINE OPERATOR Unavailable [phone] Tamera Isabel OILFIELD PLANT AND FIELD OPERATOR Unavailable UnavailShaniqua Lomeli OILFIELD PLANT AND FIELD OPERATOR Unavailable Unavailable Lillie Pritchard MD Primary Care Provider [phone] Allergies Active Allergy Reactions Criticality Noted Date Comments Penicillins Other - please docum ent in the comment field Low 08/18/2025 Doesn't remember Medications Multiple Vitamins-Mine rals (COMPLETE WOMENS PO) Take 1 tablet by mouth in the morning. Active calcium carbonate EX (Tums E-X) 750 MG chewable tablet Chew 1 tablet (750 mg) 1 (one) time each day. 025 Active ciprofloxacin (Cipro) 500 MG tabletIndicat ions:Altered mental status, unspecified altered mental status type Take 1 tablet by mouth daily. 90 tablet 1 025 Active Magnesium Oxide, Laxative, 500 MG tabletIndicat ions:Hypomagn esemia Take 1 tablet by mouth daily. 90 tablet 3 025 Active cholecalcifer ol (Vitamin D-3) 25 MCG (1000 UT) tablet Take 1 tablet by mouth daily. 90 tablet 2 Active lactulose (Chronulac) 10 GM/15ML solution Take 30 mL by mouth 3 times a day. 2700 mL 11 Active rifAXIMin (Xifaxan) 550 MG tabletIndicat ions:Liver cirrhosis secondary to NAIDU (nonalcoholic steatohepatit is) Take 1 tablet by mouth 2 times a day. 60 tablet 11 025 2025 Active calcitriol (Rocaltrol) 0.25 MCG capsuleIndica tions:Chronic kidney disease, stage 3b (CMS/HCC) Take 1 capsule by mouth daily. 30 capsule 025 2025 Active ergocalcifero l (Vitamin D-2) 1.25 MG (97210 UT) capsuleIndica tions:Vitamin D deficiency Take 1 capsule by mouth 1 time per week. 4 capsule 025 2025 Active cetirizine (ZyrTEC) 10 MG tabletIndicat ions:ETD (Eustachian tube dysfunction), bilateral Take 1 tablet by mouth daily. 30 tablet Active insulin glargine-yfgn 100 UNIT/ML injection vial Inject 24 Units under the skin daily. Active Additional Information Patient taking differently:24 Units SubcutaneousEvery morning, Reported on 09/03/2025 midodrine (Proamatine) 5 MG tablet Take 3 tablets by mouth 3 times a day. Active carboxymethyl cellulose PF (Refresh Plus) 0.5 % ophthalmic solution Administer 1 drop into both eyes as needed for dry eyes. Active senna (Senokot) 8.6 MG tablet Take 1 tablet by mouth nightly. Active insulin lispro (Admelog) 100 UNIT/ML injection Inject 0-10 Units under the skin 3 times a day with meals. See After Visit Summary for instructions on how to take your insulin. Active Additional Information Patient taking differently: 0-12 UnitsSubcutaneous 3 times daily with meals,Sliding scale 0 149 or less , 2 units 150-200, 4 units 201-250, 6 units 251-300, 8 units 301-350, 10 units 351-400, 401 and greater 12 units and call , Reported on 09/03/2025 bumetanide (Bumex) 0.5 MG tablet Take 1 tablet by mouth 3 times a week. M, W, F Active Magnesium Oxide -Mg Supplement 500 MG tablet Active insulin lispro (Admelog, HumaLOG) 100 UNIT/ML injection pen Active insulin lispro (Admelog, HumaLOG) 100 UNIT/ML injection pen Active NovoLOG FLEXPEN 100 UNIT/ML injection pen 025 Active NovoLOG FLEXPEN 100 UNIT/ML injection pen Active Accu-Chek Guide Test test strip Active Accu-Chek Guide Test test strip Active Glucagon, rDNA, (Glucagon Emergency) 1 MG kit Active Lantus SoloStar 100 UNIT/ML injection pen Active insulin lispro (Admelog, HumaLOG) 100 UNIT/ML injection pen Active sertraline (Zoloft) 25 MG tabletIndicat ions:Anxiety disorder, unspecified type Take 1 tablet by mouth daily. 90 tablet 1 Active zinc sulfate (Zincate) 220 (50 Zn) MG capsule Take 1 capsule by mouth in the morning and 1 capsule before bedtime. 60 capsule 2 025 2024 Discontinued(E ntered in Error) Zegalogue 0.6 MG/0.6ML solution auto-injector Indications:T ype 2 diabetes mellitus with hyperglycemia , with long-term current use of insulin Inject 0.6 mg under the skin 1 time as needed (for extreme hypoglycemia) for up to 1 dose. 0.6 mL 2 025 2024 Discontinued(E ntered in Error) Abaloparatide (Tymlos) 3120 MCG/1.56ML solution pen-injector Inject 80 mcg under the skin daily. 1.56 mL 2 025 2024 Discontinued(E ntered in Error) capsaicin (Zostrix-HP) 0.075 % topical cream Apply 1 Application topically daily as needed (Leg and foot cramps). 2024 Discontinued(E ntered in Error) benzonatate (Tessalon) 100 MG capsule Take 1 capsule by mouth 3 times a day as needed for cough. Do not crush or chew. 2024 Discontinued(E ntered in Error) bisacodyl (Dulcolax) 10 MG suppository Insert 1 suppository into the rectum daily as needed for constipation. 2024 Discontinued(E ntered in Error) hydrOXYzine HCl (Atarax) 25 MG tablet Take 0.5 tablets by mouth at night as needed for itching. 2024 Discontinued(E ntered in Error) polyethylene glycol (Miralax) 17 g packet Take 17 g by mouth 2 times a day. 2024 Discontinued(E ntered in Error) melatonin tablet Take 1 tablet by mouth at night as needed for sleep. 2024 Discontinued(E ntered in Error) insulin lispro (Admelog) 100 UNIT/ML injection Inject 0-3 Units under the skin 2 times a night. See After Visit Summary for instructions on how to take your insulin. 2024 Discontinued(E ntered in Error) prochlorperaz ine (Compazine) 5 MG tablet Take 1 tablet by mouth every 8 hours as needed for nausea or vomiting. 60 tablet 2 2024 cholecalcifer ol (Vitamin D3) 25 MCG (1000 UT) tablet Take 1 tablet by mouth daily. 2024 Discontinued(E ntered in Error) sertraline (Zoloft) 25 MG tabletIndicat ions:Anxiety disorder, unspecified type Take 1 tablet by mouth daily. 90 tablet 1 025 2024 Discontinued Active Problems Problem Noted Date Diagnosed Date [...] at this time has elected to pursue Boiler House Inspector Care placement and would like to speak with palliative care to learn more about their services - SW working to find LTC facility placement - palliative consulted PLAN - Delirium protocols - Continue Up to Chair TID, q4 turns - Ongoing GOC discussions Assessment & Plan (07/05/2025 8:28 AM EDT): - Patient at this time has elected to pursue Skilled Nursing Care placement and would like to speak with palliative care to learn more about their services - SW working to find LTC facility placement - palliative consulted PLAN - Delirium protocols - Continue Up to Chair TID, q4 turns - Ongoing GOC discussions Assessment & Plan (07/04/2025 9:28 AM EDT): - Patient at this time has elected to pursue Skilled Nursing Care placement and would like to speak with palliative care to learn more about their services - SW working to find LTC facility placement - palliative consulted PLAN - Delirium protocols - Continue Up to Chair TID, q4 turns - Ongoing GOC discussions Assessment & Plan (07/03/2025 8:24 AM EDT): - Patient at this time has elected to pursue Skilled Nursing Care placement and would like to speak [...] at this time has elected to pursue Skilled Nursing Care placement and would like to speak [...] concern and would prefer JOHN or termite inspector care pending influence on ability to receive transplant - Patient endorsing some burning discomfort that begins in buttocks and radiates down lateral leg, does not feel as though she is getting moved much - Concerned with possible disorientation PLAN - Transplant service to evaluate today and determine if termite inspector care would be a barrier to future [...] though not on medication - Stopped seeing coal digger after being dismissed for missing too many [...] though not on medication - Stopped seeing coal digger after being dismissed for missing too many [...] - Continue daily vit D 1000 U; 53213 U to be ordered on 06/30 if [...] - Continue daily vit D 1000 U; 69384 U to be ordered on 06/30 if [...] - Continue daily vit D 1000 U; 49039 U to be ordered on 06/30 if [...] - Continue daily vit D 1000 U; 97906 U to be ordered on 06/30 if [...] - Continue daily vit D 1000 U; 87357 U to be ordered on 06/30 if [...] daily, Vit D 1000 U daily and 15749 U weekly (Sundays) PLAN: - Admitted to [...] - Continue daily vit D 1000 U; 83523 U to be ordered on 06/30 if [...] at this time has elected to pursue Skilled Nursing Care placement and would like to speak with palliative care to learn more about their services - SW working to find LTC facility placement - palliative consulted PLAN - Delirium protocols - Continue Up to Chair TID, q4 turns - Ongoing GOC discussions Assessment & Plan (07/05/2025 8:28 AM EDT): - Patient at this time has elected to pursue Boiler House Inspector Care placement and would like to speak with palliative care to learn more about their services - SW working to find LTC facility placement - palliative consulted PLAN - Delirium protocols - Continue Up to Chair TID, q4 turns - Ongoing GOC discussions Assessment & Plan (07/04/2025 9:28 AM EDT): - Patient at this time has elected to pursue Skilled Nursing Care placement and would like to speak with palliative care to learn more about their services - SW working to find LTC facility placement - palliative consulted PLAN - Delirium protocols - Continue Up to Chair TID, q4 turns - Ongoing GOC discussions Assessment & Plan (07/03/2025 8:24 AM EDT): - Patient at this time has elected to pursue Skilled Nursing Care placement and would like to speak [...] at this time has elected to pursue Boiler House Inspector Care placement and would like to speak [...] concern and would prefer JOHN or termite inspector care pending influence on ability to receive [...] recommended home health; patient and family requested halfway facility PLAN - Contacted transplant service to [...] recommended home health; patient and family requested halfway facility PLAN - Plan for placement in long-term care Assessment & Plan (06/29/2025 8:30 AM EDT): - Patient reports poor PO intake at home in s/o large-volume ascites - Family involved in and amenable to discussion of placement; concerned for declining ability to perform ADLs - PT/OT recommended home health; patient and family requested halfway facility PLAN - Plan for placement in [...] consulted; recs appreciated - Patient agreeable to halfway facility Assessment & Plan (06/26/2025 3:57 PM [...] - Continue daily vit D 1000 U; 28976 U to be ordered on 06/30 if [...] - Continue daily vit D 1000 U; 58273 U to be ordered on 06/30 if [...] - Continue daily vit D 1000 U; 71834 U to be ordered on 06/30 if [...] - Continue daily vit D 1000 U; 32470 U to be ordered on 06/30 if [...] daily, Vit D 1000 U daily and 92934 U weekly (Sundays) PLAN: - Admitted to [...] - Continue daily vit D 1000 U; 11511 U to be ordered on 06/30 if [...] - Continue daily vit D 1000 U; 52375 U to be ordered on 06/30 if [...] - Continue daily vit D 1000 U; 15519 U to be ordered on 06/30 if [...] - Continue daily vit D 1000 U; 19251 U to be ordered on 06/30 if [...] - Continue daily vit D 1000 U; 08020 U to be ordered on 06/30 if [...] - Continue daily vit D 1000 U; 37103 U to be ordered on 06/30 if [...] daily, Vit D 1000 U daily and 33827 U weekly (Sundays) PLAN: - Admitted to [...] - Continue daily vit D 1000 U; 75663 U to be ordered on 06/30 if [...] Plan (06/30/2025 1:48 PM EDT): - 06/28 FINANCIAL DEALERS diet recommendations; see below - Patient continues to eat full diet without difficulty PLAN - Continue to hold omeprazole Assessment & Plan (06/29/2025 12:33 PM EDT): - FINANCIAL DEALERS attempted to see patient 06/27; was in procedure - 06/28 FINANCIAL DEALERS diet recommendations: IDDSI Level 7 - Regular and IDDSI Level 0- Thin PLAN - Continue to hold omeprazole Assessment & Plan (06/29/2025 8:30 AM EDT): - FINANCIAL DEALERS attempted to see patient 8/7; was in procedure PLAN - Awaiting FINANCIAL DEALERS eval - Continue to hold omeprazole Assessment & Plan (06/27/2025 3:08 PM EDT): - Chronic; advised to hold home omeprazole at most recent nephrology appointment due to concern for CARLOTTA PLAN - Continue to hold omeprazole - Ordered FINANCIAL DEALERS consult; appreciate recommendations Assessment & Plan (06/26/2025 3:57 PM EDT): - Chronic; advised to hold home omeprazole at most recent nephrology appointment due to concern for CARLOTTA PLAN - Continue to hold omeprazole - Ordered FINANCIAL DEALERS consult; appreciate recommendations Assessment & Plan (06/26/2025 [...] - Continue daily vit D 1000 U; 75955 U to be ordered on 06/30 if [...] - Continue daily vit D 1000 U; 60977 U to be ordered on 06/30 if [...] - Continue daily vit D 1000 U; 51794 U to be ordered on 06/30 if [...] - Continue daily vit D 1000 U; 79482 U to be ordered on 06/30 if [...] - Continue daily vit D 1000 U; 17421 U to be ordered on 06/30 if [...] daily, Vit D 1000 U daily and 84903 U weekly (Sundays) PLAN: - Admitted to [...] - Continue daily vit D 1000 U; 04717 U to be ordered on 06/30 if [...] at this time has elected to pursue Skilled Nursing Care placement and would like to speak with palliative care to learn more about their services - SW working to find LTC facility placement - palliative consulted PLAN - Delirium protocols - Continue Up to Chair TID, q4 turns - Ongoing GOC discussions Assessment & Plan (07/05/2025 8:28 AM EDT): - Patient at this time has elected to pursue Boiler House Inspector Care placement and would like to speak with palliative care to learn more about their services - SW working to find LTC facility placement - palliative consulted PLAN - Delirium protocols - Continue Up to Chair TID, q4 turns - Ongoing GOC discussions Assessment & Plan (07/04/2025 9:28 AM EDT): - Patient at this time has elected to pursue Skilled Nursing Care placement and would like to speak with palliative care to learn more about their services - SW working to find LTC facility placement - palliative consulted PLAN - Delirium protocols - Continue Up to Chair TID, q4 turns - Ongoing GOC discussions Assessment & Plan (07/03/2025 8:24 AM EDT): - Patient at this time has elected to pursue Skilled Nursing Care placement and would like to speak [...] at this time has elected to pursue Skilled Nursing Care placement and would like to speak [...] recommended home health; patient and family requested halfway facility PLAN - Contacted transplant service to [...] recommended home health; patient and family requested halfway facility PLAN - Plan for placement in long-term care Assessment & Plan (06/29/2025 8:30 AM EDT): - Patient reports poor PO intake at home in s/o large-volume ascites - Family involved in and amenable to discussion of placement; concerned for declining ability to perform ADLs - PT/OT recommended home health; patient and family requested halfway facility PLAN - Plan for placement in [...] consulted; recs appreciated - Patient agreeable to halfway facility Assessment & Plan (06/26/2025 3:57 PM [...] artery disease of n ative artery of [place] heart with stable angina pectoris 08/22/2018 Assessment [...] Plan (06/30/2025 1:48 PM EDT): - 06/28 FINAN[employer] DEALERS diet recommendations; see below - Patient continues to eat full diet without difficulty PLAN - Continue to hold omeprazole Assessment & Plan (06/29/2025 12:33 PM EDT): - FINANCIAL DEALERS attempted to see patient 8/7; was in procedure - 06/28 FINANCIAL DEALERS diet recommendations: IDDSI Level 7 - Regular and IDDSI Level 0- Thin PLAN - Continue to hold omeprazole Assessment & Plan (06/29/2025 8:30 AM EDT): - FINANCIAL DEALERS attempted to see patient 8/7; was in procedure PLAN - Awaiting FINANCIAL DEALERS eval - Continue to hold omeprazole Assessment & Plan (06/27/2025 3:08 PM EDT): - Chronic; advised to hold home omeprazole at most recent nephrology appointment due to concern for CARLOTTA PLAN - Continue to hold omeprazole - Ordered FINANCIAL DEALERS consult; appreciate recommendations Assessment & Plan (06/26/2025 3:57 PM EDT): - Chronic; advised to hold home omeprazole at most recent nephrology appointment due to concern for CARLOTTA PLAN - Continue to hold omeprazole - Ordered FINANCIAL DEALERS consult; appreciate recommendations Assessment & Plan (06/26/2025 [...] - Continue daily vit D 1000 U; 61478 U to be ordered on 06/30 if [...] - Continue daily vit D 1000 U; 75978 U to be ordered on 06/30 if [...] - Continue daily vit D 1000 U; 92482 U to be ordered on 06/30 if [...] - Continue daily vit D 1000 U; 99739 U to be ordered on 06/30 if [...] - Continue daily vit D 1000 U; 87948 U to be ordered on 06/30 if [...] daily, Vit D 1000 U daily and 75406 U weekly (Sundays) PLAN: - Admitted to [...] - Continue daily vit D 1000 U; 17866 U to be ordered on 06/30 if [...] - Continue daily vit D 1000 U; 32397 U to be ordered on 06/30 if [...] - Continue daily vit D 1000 U; 52917 U to be ordered on 06/30 if [...] - Continue daily vit D 1000 U; 03746 U to be ordered on 06/30 if [...] - Continue daily vit D 1000 U; 20151 U to be ordered on 06/30 if [...] - Continue daily vit D 1000 U; 48193 U to be ordered on 06/30 if [...] daily, Vit D 1000 U daily and 31229 U weekly (Sundays) PLAN: - Admitted to [...] - Continue daily vit D 1000 U; 78389 U to be ordered on 06/30 if [...] (07/17/2021): Added automatically from request for surgery [id number] Mixed hearing loss of right ear 08/24/2019 [...] Encounters Date Type Department Care Team Description 09/10/2025 9:27 AM EDT - 09/10/2025 11:59 PM EDT Hospital Encounter [facility] [address] [place] [address] Discharge Disposition: Home or Self Care 09/10/2025 6:06 AM EDT - 09/10/2025 9:26 AM EDT Hospital Encounter [facility] [address] [place] [address] Tamara Stokes, RN Other ascites Discharge Disposition: Home or Self Care 09/10/2025 Orders Only [facility] Interventional Radiology [address] [place] [address] Preeti Andersen, ADRI Other ascites (Primary Dx) 09/10/2025 Travel 09/05/2025 11:54 AM EDT - 09/05/2025 11:59 PM EDT Hospital Encounter [facility] [address] [place] [id number] Discharge Disposition: Home or Self Care 09/05/2025 8:03 AM EDT - 09/05/2025 11:53 AM EDT Hospital Encounter [facility] [address] [place] [address] Valeria rich, Shirley Hermosillo RN Other ascites; Alcoholic cirrhosis of liver with ascites Discharge Disposition: Home or Self Care 09/05/2025 Travel 09/03/2025 8:40 AM EDT Office Visit [facility] [address] , [address] [place] [address] Lillie Pritchard MD 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) (Primary Dx); Chronic kidney disease, stage 3b (CMS/HCC); Anxiety disorder, unspecified type 09/03/2025 Travel 09/02/2025 Travel 08/29/2025 11:23 AM EDT - 08/29/2025 11:59 PM EDT Hospital Encounter [facility] [address] [place] [address] Discharge Disposition: Home or Self Care 08/29/2025 8:05 AM EDT - 08/29/2025 11:22 AM EDT Hospital Encounter [facility] [address] [place] [address] Daniele Kennedy Alcoholic cirrhosis of liver with ascites Discharge Disposition: Home or Self Care 08/29/2025 8:03 AM EDT - 08/29/2025 8:04 AM EDT Hospital Encounter [facility] [address] [place] [address] Daniele Kennedy Other ascites Discharge Disposition: Home or Self Care 08/29/2025 Travel 08/26/2025 1:00 PM EDT Office Visit [facility] [address] [place] [address] Miranda Hobson, ADRI Type 2 diabetes mellitus with hyperglycemia, with long-term current use of insulin (Primary Dx); Chronic kidney disease, stage 3b (CMS/HCC); Hypoglycemia due to insulin; Obesity (BMI 30-39.9) 08/26/2025 Travel 08/26/2025 Telephone [facility] [address] [place] [address] Hang Lantigua, PharmD 08/22/2025 12:20 PM EDT - 08/22/2025 11:59 PM EDT Hospital Encounter [facility] [address] [place] [address] Discharge Disposition: Home or Self Care 08/22/2025 8:54 AM EDT - 08/22/2025 12:19 PM EDT Hospital Encounter [facility] [address] [place] [address] Candy Ness, RN Other ascites; Alcoholic cirrhosis of liver with ascites Discharge Disposition: Home or Self Care 08/22/2025 Travel 08/21/2025 Patient Outreach [facility] [address] [facility] [address] [place] [address] Shaniqua Trevino, OILFIELD PLANT AND FIELD OPERATOR TCM 08/20/2025 Travel 08/19/2025 Travel 08/18/2025 5:21 AM EDT - 08/20/2025 3:15 PM EDT Hospital Encounter [facility] Inpatient [address] [place] [address] Alvarez Brice MD [place], MD Susana Saunders, Sushma Garcia MD Hepatic encephalopathy (CMS/HCC) (Primary Dx); Urinary tract infection without hematuria, site unspecified Discharge Disposition: Skilled Nursing Care 08/18/2025 Travel 08/17/2025 Orders Only External Location [address] [place] [address] Rowan Castellano S, DO 08/17/2025 Orders Only External Location [address] [place] [address] Provider, External 08/17/2025 Orders Only External Location [address] [place] [address] Provider, External 08/17/2025 Orders Only External Location [address] [place] [address] Provider, External 08/16/2025 Telephone [facility] [address] [place] [phone] Sharif Moreno DPM HCN - Patient Message 2025 8:47 AM EDT - 2025 11:59 PM EDT Hospital Encounter [facility] [address] [place] [phone] Kami Cool, RN Alcoholic cirrhosis of liver with ascites (CMS/HCC); Other ascites Discharge Disposition: Home or Self Care 2025 Travel 08/08/2025 2:27 PM EDT - 08/08/2025 11:59 PM EDT Hospital Encounter [facility] [address] [place] [address] Discharge Disposition: Home or Self Care 08/08/2025 8:51 AM EDT - 08/08/2025 2:26 PM EDT Hospital Encounter [facility] [address] [place] [phone] Mariam Thomas, RN Other ascites Discharge Disposition: Home or Self Care 08/08/2025 Travel 08/05/2025 Travel 08/01/2025 12:48 PM EDT - 08/01/2025 11:59 PM EDT Hospital Encounter [facility] [address] [place] [address] Discharge Disposition: Home or Self Care 08/01/2025 8:36 AM EDT - 08/01/2025 12:47 PM EDT Hospital Encounter [facility] [address] [place] [address] Pretty Enriquez RN Other ascites Discharge Disposition: Home or Self Care 08/01/2025 Travel 07/31/2025 Travel 07/25/2025 1:20 PM EDT - 07/25/2025 11:59 PM EDT Hospital Encounter [facility] [address] [place] [address] Discharge Disposition: Home or Self Care 07/25/2025 8:57 AM EDT - 07/25/2025 1:19 PM EDT Hospital Encounter [facility] [address] [place] [phone] Kandice Silva, RN Pleural effusion associated with hepatic disorder (Primary Dx); Shortness of breath; Pleural effusion; Other ascites Discharge Disposition: Home or Self Care 07/25/2025 Travel 07/24/2025 Travel 07/19/2025 Patient Outreach POP[facility] [address] [place], [facility] [address] [place] [address] Jeaneth Oscar LPN [facility] 07/18/2025 12:08 PM EDT - 07/18/2025 11:59 PM EDT Hospital Encounter [facility] [address] [place] [address] Discharge Disposition: Home or Self Care 07/18/2025 9:08 AM EDT - 07/18/2025 12:07 PM EDT Hospital Encounter [facility] [address] [place] [address] Stu Samayoa Shortness of breath; Pleural effusion; Other ascites Discharge Disposition: Home or Self Care 07/18/2025 Travel 07/11/2025 12:10 PM EDT - 07/11/2025 11:59 PM EDT Hospital Encounter [facility] [address] [place] [address] Discharge Disposition: Home or Self Care 07/11/2025 9:01 AM EDT - 07/11/2025 12:09 PM EDT Hospital Encounter [facility] [address] [place] [address] Stacy Houston, RN Shortness of breath; Pleural effusion; Other ascites Discharge Disposition: Home or Self Care 07/11/2025 Travel 07/10/2025 Patient Outreach [address] [place], [facility] [address] [place] [address] Monique Tapia LPN [facility] 07/07/[address] [address] Lisa Acuna, TRAY CASTING MACHINE OPERATOR, DNP ETD (Eustachian tube dysfunction), bilateral 07/04/2025 Travel 07/03/2025 Travel 06/27/2025 Travel 06/26/2025 Patient Outreach POPULATION [address], [address] [place] [phone] Alina Lovett, RN Link 06/25/2025 2:14 PM EDT - 07/09/2025 1:19 PM EDT Hospital Encounter PAV S Inpatient [address] [place] [address] Kadie Mauro MD [place], [place] [...] Care 06/25/2025 1:00 PM EDT Office Visit [facility] Nephrology, Bone & Mineral Metabolism [address], [address] [place] [address] Arnulfo Joy MD Cirrhosis of liver with ascites, unspecified hepatic cirrhosis type (CMS/HCC) (Primary Dx); CARLOTTA (acute kidney injury) (CMS/HCC); Chronic kidney disease, stage 3b (CMS/HCC); Type 2 diabetes mellitus with hyperglycemia, with long-term current use of insulin (CMS/HCC) 06/25/2025 Travel 06/23/2025 Orders Only External Location [address] [place] [address] Kandice Maldonado, TRAY CASTING MACHINE OPERATOR 06/23/2025 Orders Only External Location [address] [place] [address] Kandice Maldonado, TRAY CASTING MACHINE OPERATOR 06/23/2025 Orders Only External Location [address] [place] [address] Kandice Maldonado, TRAY CASTING MACHINE OPERATOR 06/23/2025 Refill [facility] Bone & Mineral Metabolism [address], [address] [place] [address] Ar Dominique MD Vitamin D deficiency 06/21/2025 Telephone [facility] [address] [place] [address] Alvarez Zimmer MD HCN Clinical Concern/Question 06/20/2025 1:04 PM EDT - 06/20/2025 11:59 PM EDT Hospital Encounter [facility] Radiology [address] [place] [address] Discharge Disposition: Home or Self Care 06/20/2025 9:03 AM EDT - 06/20/2025 1:03 PM EDT Hospital Encounter [facility] A Interventional Radiology [address] [place] [address] Shanthi Rooney Other ascites Discharge Disposition: Home or Self Care 06/20/2025 Telephone [facility] [address] [place] [address] Alvarez Zimmer MD 06/20/2025 Orders Only [facility] Vascular Interventional Radiology [address], [address] [place] [address] Preeti Andersen, TRAY CASTING MACHINE OPERATOR Other ascites (Primary Dx) 06/20/2025 Travel 06/17/2025 Telephone [facility] Endocrinology [address] [place] [phone] Deysi Antonio MD from Last 3 Months Immunizations Immunization Administration [...] 2 Obesity Son 2 Asthma [facility] 3 [facility] Mental illness [facility] 4 [facility] Relation Name Status Comments Father Eliseo Singletary Maternal Grandfather Maternal Grandmother Christine Dick Mother Karime Singletary Alive Other Paternal Grandfather Paternal Grandmother Anish Singletary Sister Lj Bernal Alive Son 1 Alive Son 2 Alive Son 3 [facility] Alive Son 4 Viralarnoldo Zimmer Alive Social [...] often do you attend [facility] or tenriism services? Patient unable to answer [...] often do you attend [facility] or tenriism services? Never 05/29/2025 Do you belong to [...] more drinks on one occasion? Never 09/03/2025 [facility] [place] of Occupat ional Health - Occupational Stress [...] a skilled nursing (including now)? No 08/19/2025 [facility] Utilities Answer Date Recorded In the past 12 months has th e [employer], gas, oil, or water company threatened to [...] drink first t kennedy in the morning (EYE-CLERICAL GRADER) to steady your nerves or to get [...] Sign Reading Time Taken Comments Blood Pressure 114/61 09/10/2025 10:00 AM EDT Pulse 91 09/10/2025 10:15 AM EDT Temperature 36.4 C (97.6 F) 09/10/2025 8:52 AM EDT Respiratory Rate 17 09/10/2025 10:15 AM EDT Oxygen Saturation 92% 09/10/2025 10:15 AM EDT Inhaled Oxygen Concentration - - Weight 80.1 kg (176 lb 9.4 oz) 09/10/2025 6:31 A M EDT Height 165.1 cm (5' 5 ) 09/10/2025 6:31 AM EDT Body Mass Index 29.39 09/10/2025 6:31 AM EDT Plan of Treatment Upcoming Encounters Date Type Department Care Team (Late st Contact Info) Description 09/17/2025 9:45 AM EDT Clinical Support [facility] Trans[facility] [place] [address] [place] [address] 09/17/2025 10:30 AM EDT Social Work [facility] [place] [address] [place] [address] Lea Reilly, [place] [address] 09/17/2025 11:20 AM EDT Office Visit [facility] [address] [place] [address] Octavia Herrera, PA [address] [place] [address] 09/19/2025 10:30 AM EDT Appointment [facility] Interventional Radiology [address] [place] [address] 09/19/2025 11:30 AM EDT Appointment [facility] Interventional Radiology [address] [place] [address] 09/26/2025 7:30 AM EST Appointment [facility] Interventional Radiology [address] [place] [phone] 09/26/2025 8:30 AM EST Appointment [facility] Interventional Radiology [address] [place] [address] 10/01/2025 9:00 AM EST Office Visit [facility] [address] , [address] [place] [address] Lillie Pritchard MD [address] [place], [place] [id number] 10/03/2025 12:30 PM EST Appointment [facility] Interventional Radiology [address] [place] [address] 10/03/2025 1:30 PM EST Appointment [facility] Interventional Radiology [address] [place] [phone] 12/20/2025 11:00 AM EST Office Visit [facility] Endocrinology [address] [place] [phone] Miranda Hobson, TRAY CASTING MACHINE OPERATOR [address] [facility] [address] [place] [phone] Health Maintenance Due Date Last Done Comments Dental Prophylaxis 1962 Dental X-Ray: Bitewings 1962 Dental X-Ray: Full Mouth 1962 [facility]-Infant/Child/Adol SDOH Screenings 1962 [id number] Vaccine (#1) 1967 Diabetes: Dental Exam 1972 [...] (#1) 07/22/202509/10, 10/01/2021, 02/11/2021, Additional history exists [facility]-Bone Density Scan 11/07/2025 11/07/2024 [facility]-Breast Cancer Screening 01/25/2026 03/0 05/2024, 01/26/2024, 10/21/2022, Additional history exists [facility]- SDOH Screenings 02/16/2026 [facility]-Adult SDOH Screenings 02/16/2026 08/19/2025 [facility]-Diabetes: Hemoglobin A1C 02/23/2026 08/26/2025, 05/23/2025, 01/08/2025, Additional history exists [facility]-Medicare Annual Wellness (AWV) 06/05/2026 06/05/2025 [facility]-Depression Screening 09/03/2026 09/03/2025, 08/21 [facility]-DTaP,Tdap,and Td Vaccines (2 - Td or Tdap) 07/17/2029 07/17/2019 Colonoscopy 01/14/2033 01/14/2023 [facility]-Colorectal Cancer Screening 01/14/2033 [facility]-Cervical Cancer Screening Discontinued [facility]-HPV/Cotest Discontinued 04/12/2003, 07/22, 02/23/2002, Additional history exists [facility]-Pap Smear Discontinued 04/12/2003, 07/22, 02/23/2002, Additional history exists [facility]-Zoster Vaccines Completed 10/30/2019, 9 [facility]-HIV Screening Completed 10/22/2024 [facility]-Hepatitis C Screening Completed 2023, 10/02/2024, 10/28/2022 [facility]-Obesity Intervention Completed 025, 09/03/2025, 08/26/2025, Additional history exists HPV Vaccines Aged Out [...] EDT Other ascites US GUIDED THORACENTESIS Routine 09/10/2025 8:46 AM EDT Other ascites TOTAL PROTEIN, PERITONEAL FLUID Routine 09/10/2025 8:11 AM EDT BODY FLUID, CYTOSPIN, PATHOLOGIST INTERPRETATION Routine 09/10/2025 8:10 AM EDT BODY FLUID CELL COUNT W/ MANUAL DIFFERENTIAL Routine 09/10/2025 8:10 AM EDT BODY FLUID, CYTOSPIN, PATHOLOGIST INTERPRETATION Routine 09/10/2025 7:49 AM EDT LACTATE DEHYDROGENASE, PLEURAL FLUID Routine 09/10/2025 7:49 AM EDT TOTAL PROTEIN, PLEURAL FLUID Routine 09/10/2025 7:49 AM EDT BODY FLUID CELL COUNT W/ MANUAL DIFFERENTIAL Routine 09/10/2025 7:49 AM EDT BODY FLUID CULTURE AND GRAM STAIN Routine 09/10/2025 7:49 AM EDT XR CHEST 1 VIEW STAT 09/05/2025 12:10 PM EDT US GUIDED ABDOMINAL PARACENTESIS Routine 09/05/2025 11:42 AM EDT Alcoholic cirrhosis of liver with ascites US GUIDED THORACENTESIS Routine 09/05/2025 11:42 AM EDT Other ascites BODY FLUID, CYTOSPIN, PATHOLOGIST INTERPRETATION Routine 09/05/2025 11:23 AM EDT TOTAL PROTEIN, PLEURAL FLUID Routine 09/05/2025 11:23 AM EDT BODY FLUID CELL COUNT W/ MANUAL DIFFERENTIAL Routine 09/05/2025 11:23 AM EDT BODY FLUID, CYTOSPIN, PATHOLOGIST INTERPRETATION Routine 09/05/2025 10:26 AM EDT TOTAL PROTEIN, PERITONEAL FLUID Routine 09/05/2025 10:26 AM EDT BODY FLUID CELL COUNT W/ MANUAL DIFFERENTIAL Routine 09/05/2025 10:26 AM EDT BASIC METABOLIC PANEL, PLASMA Routine 09/03/2025 10:16 AM EDT Chronic kidney disease, stage 3b (CMS/HCC) XR CHEST 1 VIEW STAT 08/29/2025 11:45 AM EDT US GUIDED ABDOMINAL PARACENTESIS Routine 08/29/2025 11:09 AM EDT Alcoholic cirrhosis of liver with ascites US GUIDED THORACENTESIS Routine 08/29/2025 11:09 AM EDT Other ascites BODY FLUID, CYTOSPIN, PATHOLOGIST INTERPRETATION Routine 08/29/2025 10:27 AM EDT BODY FLUID, CYTOSPIN, PATHOLOGIST INTERPRETATION Routine 08/29/2025 10:27 AM EDT TOTAL PROTEIN, PLEURAL FLUID Routine 08/29/2025 10:27 AM EDT BODY FLUID CELL COUNT W/ MANUAL DIFFERENTIAL Routine 08/29/2025 10:27 AM EDT TOTAL PROTEIN, PERITONEAL FLUID Routine 08/29/2025 10:27 AM EDT BODY FLUID CELL COUNT W/ MANUAL DIFFERENTIAL Routine 08/29/2025 10:27 AM EDT POCT GLYCOSYLATED HEMOGLOBIN (HGB A1C) Routine 08/26/2025 1:04 PM EDT Type 2 diabetes mellitus with hyperglycemia, with long-term current use of insulin XR CHEST 1 VIEW STAT 08/22/2025 12:30 [...] MANUAL DIFFERENTIAL Routine 06/20/2025 11:59 AM EDT COMPREHENSIVE ORAL EVALUATION - NEW [...] Maintenance Results * XR Chest 1 View (09/10/2025 9:55 AM EDT) Only the most recent of15 resultswithin the time period is included. Anatomical [...] on 09/10/2025 9:58 AM us Preeti Andersen TRAY CASTING MACHINE OPERATOR IMG XR PROCEDURES Final Result * US Guided Abdominal Paracentesis (09/10/2025 8:46 AM EDT) Only the most recent of12 [...] by ascites and intermittent hepatic hydrothorax. TECHNIQUE: Bonderizer Operator: ADRI Andersen Secondary Set Up Mechanic: None. Rad Dose: NA Medications: Continuous physiologic [...] complicated by ascites and intermittent hepatichydrothorax. TECHNIQUE: Bonderizer Operator: ADRI Andersen Secondary Set Up Mechanic: None. Rad Dose: NA Medications: Continuous physiologic [...] Preliminary report signed by SOLANGE Hall on 0:28 AM By electronically signing this report, I, the attending physician, attestthat I was not present for the procedure(s) but agree with the finaledited report. Drafted by SOLANGE Hall on 09/10/2025 10:26 AM Final report signed by Wily Mccall MD on 09/10/2025 10:55 AM us Preeti Andersen APRN IMG US PROCEDURES Final Result * US Guided Thoracentesis (09/10/2025 8:46 AM EDT) Only the most recent of12 [...] by ascites and intermittent hepatic hydrothorax. TECHNIQUE: Bonderizer Operator: ADRI Andersen Secondary Set Up Mechanic: None. Rad Dose: NA Medications: Continuous physiologic [...] right pleural fluid. COMPLICATION: No. Procedure Note El Wily Faith MD - 09/10/2025 CLINICAL INDICATION: This is a 64 y.o. 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 TECHNIQUE: Bonderizer Operator: ADIR Andersen Secondary Set Up Mechanic: None. Rad Dose: NA Medications: Continuous physiologic [...] Preliminary report signed by SOLANGE Hall on 0:36 AM By electronically signing this report, I, the attending physician, attestthat I was not present for the procedure(s) but agree with the finaledited report. Drafted by SOLANGE Hall on 09/10/2025 10:30 AM Final report signed by Wily Mccall MD on 09/10/2025 10:55 AM us Marianna Dixon Ochoaeks TRAY CASTING MACHINE OPERATOR IMG US PROCEDURES Final Resu lt * Protein - Ascites (09/10/2025 8:11 AM EDT) Only the most recent of12 resultswithin the time period is included. Total Protein, Fluid 0.8 g/dL 09/10/2025 10:10 AM EDT [facility] Ascites Peritoneal cavity structure / Unknown 09/10/2025 8:11 AM EDT 09/10/2025 8:24 AM EDT Narrative [facility] - 09/10/2025 10:10 AM EDT This test was developed and its performance characteristics determined by [facility]. The U.S. Food and Drug [...] Result [facility] [address] [place] [address] * (ABNORMAL) Body Fluid Cell Count With Diff - Ascites (09/10/2025 8:10 AM EDT) Only the most recent of16 resultswithin the time period is included. Color, Body fluid [place] LAB HEMATOLOGY METHOD 09/10/2025 1:22 PM EDT [facility] Appearance, Body fluid Cloudy(A) LAB HEMATOLOGY METHOD 09/10/2025 1:22 PM EDT [facility] Volume, Body fluid 20.0 cc LAB HEMATOLOGY METHOD 09/10/2025 1:22 PM EDT [facility] Fluid Container Specimen received in miscellaneous container LAB HEMATOLOGY METHOD 09/10/2025 1:22 PM EDT [facility] Red Blood Cell Count, Body fluid 5,000 uL LAB HEMATOLOGY METHOD 09/10/2025 1:22 PM EDT [facility] Total Nucleated Cell Count, Body fluid 172 uL LAB HEMATOLOGY METHOD 09/10/2025 1:22 PM EDT [facility] Neutrophils %, Body fluid 3 % LAB HEMATOLOGY METHOD 09/10/2025 1:22 PM EDT [facility] Lymphocytes %, Body fluid 77 % LAB HEMATOLOGY METHOD 09/10/2025 1:22 PM EDT [facility] Monocytes/Macr ophages %, Body fluid 18 % LAB HEMATOLOGY METHOD 09/10/2025 1:22 PM EDT [facility] Eosinophils %, Body fluid 0 % LAB HEMATOLOGY METHOD 09/10/2025 1:22 PM EDT [facility] Lining/Mesothe lial Cells %, Body fluid 2 % LAB HEMATOLOGY METHOD 09/10/2025 1:22 PM EDT [facility] Neutrophils Absolute (PMN), Body fluid 5 uL LAB HEMATOLOGY METHOD 09/10/2025 1:22 PM EDT [facility] Lymphocytes Absolute, Body fluid 132 uL LAB HEMATOLOGY METHOD 09/10/2025 1:22 PM EDT [facility] Monocytes/Macr ophages Absolute, Body fluid 31 uL LAB HEMATOLOGY METHOD 09/10/2025 1:22 PM EDT [facility] Eosinophils Absolute, Body fluid 0 uL LAB HEMATOLOGY METHOD 09/10/2025 1:22 PM EDT [facility] Basophils Absolute, Body fluid 0 uL LAB HEMATOLOGY METHOD 09/10/2025 1:22 PM EDT [facility] Lining/Mesothe lial Cells Absolute, Body fluid 3 uL LAB HEMATOLOGY METHOD 09/10/2025 1:22 PM EDT [facility] Basophils %, Body fluid 0 % LAB HEMATOLOGY METHOD 09/10/2025 1:22 PM EDT [facility] Body Fluid Peritoneal fluid / Unknown Non-blood Collection / Unknown 09/10/2025 8:10 AM EDT 09/10/2025 8:25 AM EDT Preeti Andersen APRN LAB BODY FLUIDS AND STOOLS ORDERABLES NO SPECIMEN TYPE/SOURCE Final Result Performing Organization Address City/[facility]/ZIP Co de Phone Number [facility] [address] [place] [address] * Body fluid, cytospin, pathologist interpretation (09/10/2025 8:10 AM EDT) Only the most recent of16 resultswithin the time period is included. Specimen Type Body Fluid LAB HEMATOLOGY METHOD 09/11/2025 11:24 AM EDT [facility] Specimen Source, Body Fluid Peritoneal Fluid LAB HEMATOLOGY METHOD 09/11/2025 11:24 AM EDT [facility] Clinical Diagnosis, Body Fluid Ascites LAB HEMATOLOGY METHOD 09/11/2025 11:24 AM EDT [facility] Interpretation , Body Fluid No evidence of malignancy. Predominantly chronic inflammatory cells. Moderate to heavy blood. A resident was involved in the service. I attest I examined the relevant preparations for the specimens and confirmed the diagnosis or interpretation. 09/11/2025 11:24 AM EDT [facility] Pathologist Signature, Body Fluid 09/11/2025 11:24 AM EDT [facility] Comment:Reviewed by: Onur Roque MD LAB CP ASR DISCLAIMER Yes 09/11/2025 11:24 AM EDT [facility] Body Fluid Peritoneal fluid / Unknown Non-blood Collection / Unknown 09/10/2025 8:10 AM EDT 09/10/2025 8:25 AM EDT us Preeti Andersen APRN LAB BODY FLUIDS AND STO OLS ORDERABLES Final Result Performing Organization Address City/[facility]/ZIP Co de Phone Number [facility] [address] [place] [address] * Total Protein, Pleural Fluid - Pleural Right (09/10/2025 7:49 AM EDT) Only the most recent of5 resultswithin the time period is included. Total Protein, Fluid 1.2 g/dL 09/10/2025 9:55 AM EDT [facility] Pleural Fluid Structure of right pleural cavity / Unknown Non-blood Collection / Unknown 09/10/2025 7:49 AM EDT 09/10/2025 9:19 AM EDT Narrative [facility] - 09/10/2025 9:55 AM EDT This test was developed and its performance characteristics determined by [facility]. The U.S. Food and Drug Administration has not approved or cleared this test. However, FDA clearance or approval is not currently required for clinical use. The results are not intended to be used as the sole means for clinical diagnosis or patient management decisions. Preeti Andersen TRAY CASTING MACHINE OPERATOR LAB BODY FLUIDS AND STO OLS ORDERABLES Final Result [facility] [address] [place] [address] * Lactate Dehydrogenase, Pleural Fluid - Right (09/10/2025 7:49 AM EDT) Only the most recent of3 resultswithin the time period is included. LDH, Fluid 48 U/L 09/10/2025 9:55 AM EDT [facility] Pleural Fluid Structure of right pleural cavity / Unknown Non-blood Collection / Unknown 09/10/2025 7:49 AM EDT 09/10/2025 9:19 AM EDT Narrative [facility] - 09/10/2025 9:55 AM EDT [...] the following criteria are present: (1) pleural oyxrz-eb-lkzcu protein ratio of >0.5, (2) pleural hwnln-ng-ivfto LDH ratio of >0.6, or (3) a pleural fluid LDH activity that is >2/3 the upper limit of a normal serum LDH activity. Light's criteria may misclassify ~25% of transudates as exudates in heart failure. These can be identified by calculating a njuxy-xb-iytflge albumin gradient (>1.2 g/dL) and/or a obpzo-hf-fzojt protein gradient (>3.1 g/dL). Preeti Andersen APRN LAB BODY FLUIDS AND STO OLS ORDERABLES Final Result Performing Organization Address [facility] Co de Phone Number [facility] [address] [place] [address] * Body Fluid Culture and Gram Stain - Pleural Right (09/10/2025 7:49 AM EDT) Only the most recent of5 resultswithin the time period is included. Culture No growth at day 4 2024 7:16 AM EDT [facility] Gram Stain Result Rare Polymorphonuclear leukocytes 09/13/2025 7:16 AM EDT [facility] Gram Stain Result No organisms seen 09/13/2025 7:16 AM EDT [facility] Pleural Fluid Specimen from pleura obtained by thoracentesis / Unknown Non-blood Collection / Unknown 09/10/2025 7:49 AM EDT 09/10/2025 9:38 AM EDT Preeti Andersen APRN LAB MICROBIOLOGY - GENE RAL ORDERABLES Final Result Performing Organization Address [facility] Co de Phone Number [facility] [address] [place] [address] * (ABNORMAL) Basic metabolic panel (09/03/2025 10:16 AM EDT) Only the most recent of2 resultswithin the time period is included. Glucose, Plasma 278(H) 74 - 99 mg/dL 09/03/2025 1:23 PM EDT [facility] BUN, Plasma 34(H) 8 - 23 mg/dL 09/03/2025 1:23 PM EDT [facility] Creatinine, Plasma 1.34(H) 0.60 - 1.10 mg/dL 09/03/2025 1:23 PM EDT [facility] BUN/Creatinine Ratio 25 09/03/2025 1:23 PM EDT [facility] Sodium, Plasma 134(L) 136 - 145 mmol/L 09/03/2025 1:23 PM EDT [facility] Potassium, Plasma 3.9 3.6 - 4.9 mmol/L 09/03/2025 1:23 PM EDT [facility] Chloride, Plasma 98 97 - 107 mmol/L 09/03/2025 1:23 PM EDT [facility] CO2, Plasma 23 22 - 29 mmol/L 09/03/2025 1:23 PM EDT [facility] Anion Gap 13 6 - 16 mmol/L 09/03/2025 1:23 PM EDT [facility] Total Calcium, Plasma 8.6(L) 8.9 - 10.2 mg/dL 09/03/2025 1:23 PM EDT [facility] eGFRcr 44.6 mL/min/1.7 3m*2 09/03/2025 1:23 PM EDT [facility] Comment:Reported eGFRcr in m L/min/1.73m2 is based the CKD-EPI 2020 equation that does not use a race coefficient. Blood Venous blood specimen / Unknown Venipuncture / Unknown 09/03/2025 10:16 AM EDT 09/03/2025 10:16 AM EDT us Mini Churchill DO LAB BLOOD ORDERABLES Final R esult Performing Organization Address City/[facility]/ZIP Co de Phone Number [facility] [address] [place] [address] * POCT glycosylated hemoglobin (Hb A1C) (08/26/2025 1:04 PM EDT) POCT Hemoglobin A1C 6.4 <5.7% Non-Diabet ic % [facility] Kit Lot Number [id number] [facility] Kit Expiration Date 06/16 [facility] Blood Venous blood specimen / Unknown 08/26/2025 1:04 PM EDT us Miranda Hobson TRAY CASTING MACHINE OPERATOR POINT OF CARE TEST ENTER /EDIT ORDERABLES Final Result Performing Organization Address City/[facility]/ZIP Co de Phone Number [facility] [address] [place] [address] * Glucose - Ascites (08/22/2025 11:06 AM EDT) Only the most recent of5 resultswithin the time period is included. [facility] Glucose, Fluid 345 mg/dL 08/22/2025 1:08 PM EDT [facility] Peritoneal Fluid Peritoneal cavity structure / Unknown Non-blood Collection / Unknown 08/22/2025 11:06 AM EDT 08/22/2025 12:17 PM EDT Narrative [facility] - 08/22/2025 1:08 PM EDT [...] Glucose < 50 mg/dL. us Shaniqua Mccurdy TRAY CASTING MACHINE OPERATOR LAB BODY FLUIDS AND STOOLS O RDERABLES Final Result [facility] [address] [place] [address] * (ABNORMAL) POCT glucose meter (08/20/2025 12:05 PM EDT) Only the most recent of75 resultswithin the time period is included. [facility] POCT Glucose 279(H) 74 - 99 mg/dL 08/20/2025 12:07 PM EDT [facility] Comment:Accuracy of a glucos e result [...] for testing. Comment 08/20/2025 12:07 PM EDT [facility] Set Up Mechanic ID Kevin Serrano 12:07 PM EDT [facility] Device ID [id number] 08/20/2025 12:07 PM EDT [facility] Specimen Type POC Capillary 08/20/2025 12:07 PM EDT [facility] Blood Capillary blood specimen / Unknown 08/20/2025 12:05 PM EDT 08/20/2025 12:07 PM EDT Sushma Meza MD LAB POINT OF CARE TE ST DOCKED DEVICE UNSOLICITED RESULTS Final Result Performing Organization Address City/[facility] Co de Phone Number [facility] [address] [place] [address] * (ABNORMAL) Protime-INR (08/20/2025 3:26 AM EDT) Only the most recent of13 resultswithin the time period is included. Prothrombin Time 23.0(H) 12.0 - 14.3 sec 08/20/2025 3:51 AM EDT [facility] INR 2.0(H) 0.9 - 1.1 08/20/2025 3:51 AM EDT [facility] Blood Venous blood specimen / Unknown Venipuncture / Unknown 08/20/2025 3:26 AM EDT 08/20/2025 3:39 AM EDT Narrative [facility] - 08/20/2025 3:51 AM EDT OPTIMAL INR RANGES FOR PATIENT ON ORAL ANTICOAGULANT THERAPY Prevention of venous thromboembolism INR 2.0 to 3.0 In patients with heart disease: Atrial fibrillation INR 2.0 to 3.0 Valvular heart disease INR 2.0 to 3.0 Tissue heart valves INR 2.0 to 3.0 Mechanical prosthetic valves INR 2.5 to 3.5 Prevention of recurrent NV INR 2.5 to 3.5 us Sushma Meza MD LAB BLOOD ORDERABLES Final R esult Performing Organization Address City/[facility]/ZIP Co de Phone Number [facility] [address] [place] [address] * (ABNORMAL) CBC and differential (08/20/2025 3:26 AM EDT) Only the most recent of18 resultswithin the time period is included. WBC Count 4.76 3.70 - 10.30 10*3/uL LAB HEMATOLOGY METHOD 08/20/2025 3:42 AM EDT [facility] RBC Count 2.72(L) 3.90 - 5.20 10*6/uL LAB HEMATOLOGY METHOD 08/20/2025 3:42 AM EDT [facility] HGB 8.6(L) 11.2 - 15.7 g/dL LAB HEMATOLOGY METHOD 08/20/2025 3:42 AM EDT [facility] HCT 24.9(L) 34.0 - 45.0 % LAB HEMATOLOGY METHOD 08/20/2025 3:42 AM EDT [facility] Platelet Count 59(L) 155 - 369 10*3/uL LAB HEMATOLOGY METHOD 08/20/2025 3:42 AM EDT [facility] MCV 92 79 - 98 fL LAB HEMATOLOGY METHOD 08/20/2025 3:42 AM EDT [facility] MCH 31.6 26.0 - 32.0 pg LAB HEMATOLOGY METHOD 08/20/2025 3:42 AM EDT [facility] MCHC 34.5 30.7 - 35.5 g/dL LAB HEMATOLOGY METHOD 08/20/2025 3:42 AM EDT [facility] RDW 17.2(H) 11.5 - 14.5 % LAB HEMATOLOGY METHOD 08/20/2025 3:42 AM EDT [facility] MPV 10.9 8.8 - 12.5 fL LAB HEMATOLOGY METHOD 08/20/2025 3:42 AM EDT [facility] nRBC 0.0 <=0.0 per 100 WBCs LAB HEMATOLOGY METHOD 08/20/2025 3:42 AM EDT [facility] Differential Type Automated LAB HEMATOLOGY METHOD 08/20/2025 3:42 AM EDT [facility] Neutrophils % 64 % LAB HEMATOLOGY METHOD 08/20/2025 3:42 AM EDT [facility] Lymphocytes % 16 % LAB HEMATOLOGY METHOD 08/20/2025 3:42 AM EDT [facility] Monocytes % 15 % LAB HEMATOLOGY METHOD 08/20/2025 3:42 AM EDT [facility] Eosinophils % 4 % LAB HEMATOLOGY METHOD 08/20/2025 3:42 AM EDT [facility] Basophils % 1 % LAB HEMATOLOGY METHOD 08/20/2025 3:42 AM EDT [facility] Immature Granulocytes % 0 % LAB HEMATOLOGY METHOD 08/20/2025 3:42 AM EDT [facility] Neutrophils Absolute 3.02 1.60 - 6.10 10*3/uL LAB HEMATOLOGY METHOD 08/20/2025 3:42 AM EDT [facility] Lymphocytes Absolute 0.77(L) 1.20 - 3.90 10*3/uL LAB HEMATOLOGY METHOD 08/20/2025 3:42 AM EDT [facility] Monocytes Absolute 0.69 0.30 - 0.90 10*3/uL LAB HEMATOLOGY METHOD 08/20/2025 3:42 AM EDT [facility] Eosinophils Absolute 0.21 0.00 - 0.50 10*3/uL LAB HEMATOLOGY METHOD 08/20/2025 3:42 AM EDT [facility] Basophils Absolute 0.05 0.00 - 0.10 10*3/uL LAB HEMATOLOGY METHOD 08/20/2025 3:42 AM EDT [facility] Immature Granulocytes Absolute 0.02 0.00 [...] Meza MD LAB BLOOD ORDERABLES [facility] Performing Organization Address [facility] Co de Phone Number [facility] [address] [place] [address] * Phosphorus (08/20/2025 3:26 AM EDT) Only the most recent of18 resultswithin the time period is included. Pathologist [facility] Phosphorus, Plasma 4.3 2.5 - 4.5 mg/dL 08/20/2025 4:14 AM EDT [facility] Blood Venous blood specimen / Unknown Venipuncture / Unknown 08/20/2025 3:26 AM EDT 08/20/2025 3:37 AM EDT us Sushma Meza MD LAB BLOOD ORDERABLES Final R esult Performing Organization Address City/[facility]/ZIP Co de Phone Number [facility] [address] [place] [address] * (ABNORMAL) Magnesium (08/20/2025 3:26 AM EDT) Only the most recent of19 resultswithin the time period is included. [facility] Magnesium, Plasma 1.6(L) 1.9 - 2.4 mg/dL 08/20/2025 4:14 AM EDT [facility] Blood Venous blood specimen / Unknown Venipuncture / Unknown 08/20/2025 3:26 AM EDT 08/20/2025 3:37 AM EDT us Sushma Meza MD LAB BLOOD ORDERABLES Final R esult [facility] [address] [place] [address] * (ABNORMAL) Comprehensive metabolic panel (08/20/2025 3:26 AM EDT) Only the most recent of18 resultswithin the time period is included. [facility] Glucose, Plasma 274(H) 74 - 99 mg/dL 08/20/2025 4:14 AM EDT [facility] BUN, Plasma 51(H) 8 - 23 mg/dL 08/20/2025 4:14 AM EDT [facility] Creatinine, Plasma 2.42(H) 0.60 - 1.10 mg/dL 08/20/2025 4:14 AM EDT [facility] BUN/Creatinine Ratio 21 08/20/2025 4:14 AM EDT [facility] Sodium, Plasma 132(L) 136 - 145 mmol/L 08/20/2025 4:14 AM EDT [facility] Potassium, Plasma 4.1 3.6 - 4.9 mmol/L 08/20/2025 4:14 AM EDT [facility] Chloride, Plasma 101 97 - 107 mmol/L 08/20/2025 4:14 AM EDT [facility] CO2, Plasma 20(L) 22 - 29 mmol/L 08/20/2025 4:14 AM EDT [facility] Anion Gap 11 6 - 16 mmol/L 08/20/2025 4:14 AM EDT [facility] Total Calcium, Plasma 8.4(L) 8.9 - 10.2 mg/dL 08/20/2025 4:14 AM EDT [facility] Total Protein 5.8(L) 6.3 - 7.9 g/dL 08/20/2025 4:14 AM EDT [facility] Albumin, Plasma 2.8(L) 3.5 - 5.2 g/dL 08/20/2025 4:14 AM EDT [facility] AST, Plasma 32 10 - 35 U/L 08/20/2025 4:14 AM EDT [facility] ALT, Plasma 12 10 - 35 U/L 08/20/2025 4:14 AM EDT [facility] Alkaline Phosphatase, Plasma 175(H) 46 - 142 U/L 08/20/2025 4:14 AM EDT [facility] Total Bilirubin, Plasma 1.5(H) 0.2 - 1.1 mg/dL 08/20/2025 4:14 AM EDT [facility] eGFRcr 22.0 mL/min/1.7 3m*2 08/20/2025 4:14 AM EDT [facility] Comment:Reported eGFRcr in m L/min/1.73m2 is based the CKD-EPI 2020 equation that does not use a race coefficient. Blood Venous blood specimen / Unknown Venipuncture / Unknown 08/20/2025 3:26 AM EDT 08/20/2025 3:37 AM EDT us Sushma Meza MD LAB BLOOD ORDERABLES Final R esult [facility] [address] [place] [id number] * US Abdomen Focused Region Other (08/19/2025 [...] 12:22 PM EDT) Only the most recent of4 resultswithin the time period is included. Ammonia 77(H) 11 - 51 umol/L 08/19/2025 12:55 PM EDT [facility] Blood Venous blood specimen / Unknown Venipuncture / Unknown 08/19/2025 12:22 PM EDT 08/19/2025 12:35 PM EDT Sushma Meza MD LAB BLOOD ORDERABLES Final R esult [facility] [address] [place] [id number] * Protein, Random, Urine with Creatinine (08/18/2025 4:15 PM EDT) Only the most recent of2 resultswithin the time period is included. Protein, Urine 36 mg/dL 08/18/2025 4:49 PM EDT [facility] Creatinine, Urine 126 mg/dL 08/18/2025 4:49 PM EDT [facility] Protein/Creati nine Ratio 0.3 mg/mg Creat 08/18/2025 4:49 PM EDT [facility] Urine Urine specimen obtained by clean catch procedure / Unknown Non-blood Collection / Unknown 08/18/2025 4:15 PM EDT 08/18/2025 4:23 PM EDT Sushma Meza MD LAB URINE ORDERABLES Final R esult [facility] [address] [place] [address] * EKG now - STAT (adult) (08/18/2025 6:18 AM EDT) Only the most recent of2 resultswithin the time period is included. EKG DIAGNOSIS CLASS Borderline Abnormal MUSE ECG Ventricular Rate 46 BPM MUSE ECG Atrial Rate 46 BPM MUSE ECG DC Interval 132 ms MUSE ECG QRSD Interval 92 ms MUSE ECG QT Interval 536 ms MUSE ECG QTC Interval 469 ms MUSE ECG P [place] 45 degrees MUSE ECG R [place] -25 degrees MUSE ECG T Wave [place] 13 degrees MUSE ECG Diagnosis Sinus bradycardia MUSE ECG Diagnosis Low voltage QRS MUSE ECG Diagnosis Borderline ECG MUSE ECG Diagnosis MUSE ECG Diagnosis Confirmed by Artemio Arora ([id number]) on 08/18/2025 1:42:50 PM MUSE ECG 08/18/2025 6:18 AM EDT 08/18/2025 1:42 PM EDT Alvarez Brice MD ECG ORDERABLES Final Resul t Performing Organization Address City/[facility]/ZIP Co de Phone Number MUSE ECG * Osmolality (08/18/2025 6:11 AM EDT) Only the most recent of2 resultswithin the time period is included. Osmolality, Serum 297 280 - 301 mOsm/Kg 08/18/2025 5:06 PM EDT [facility] Blood Venous blood specimen / Unknown Venipuncture / Unknown 08/18/2025 6:11 AM EDT 08/18/2025 6:20 AM EDT Sushma Meza MD LAB BLOOD ORDERABLES Final R esult Performing Organization Address City/[facility]/ZIP Co de Phone Number [facility] [address] [place] [address] * Lipase (08/18/2025 6:11 AM EDT) Pathologist [facility] Lipase, Plasma 49 19 - 63 U/L 08/18/2025 6:51 AM EDT [facility] Blood Venous blood specimen / Unknown Venipuncture / Unknown 08/18/2025 6:11 AM EDT 08/18/2025 6:20 AM EDT Alvarez Brice MD LAB BLOOD ORDERABLES Final Result Performing Organization Address [facility]/ZIP Co de Phone Number [facility] [address] [place] [address] * (ABNORMAL) Blood gas panel, venous (08/18/2025 6:11 AM EDT) Pathologist [facility] pH, Venous 7.41 7.32 - 7.43 LAB HEMATOLOGY METHOD 08/18/2025 6:31 AM EDT [facility] pCO2, Venous 35(L) 37 - 52 mmHg LAB HEMATOLOGY METHOD 08/18/2025 6:31 AM EDT [facility] pO2, Venous 25 25 - 40 mmHg LAB HEMATOLOGY METHOD 08/18/2025 6:31 AM EDT [facility] SO2, Measured, Venous 39(L) 65 - 80 % LAB HEMATOLOGY METHOD 08/18/2025 6:31 AM EDT [facility] Base Excess, Venous -2.0 -2.0 - 3.0 mmol/L LAB HEMATOLOGY METHOD 08/18/2025 6:31 AM EDT [facility] Bicarbonate, Calculated, Venous 22 22 - 26 mmol/L LAB HEMATOLOGY METHOD 08/18/2025 6:31 AM EDT [facility] Hematocrit, Whole Blood 27.2(L) 34.0 - 45.0 % LAB HEMATOLOGY METHOD 08/18/2025 6:31 AM EDT [facility] Sodium, Whole Blood 138 136 - 145 mmol/L LAB HEMATOLOGY METHOD 08/18/2025 6:31 AM EDT [facility] Potassium, Whole Blood 3.4(L) 3.6 - 4.9 mmol/L LAB HEMATOLOGY METHOD 08/18/2025 6:31 AM EDT [facility] Chloride, Whole Blood 105 97 - 107 mmol/L LAB HEMATOLOGY METHOD 08/18/2025 6:31 AM EDT [facility] Glucose, Whole Blood 193(H) 74 - 99 mg/dL LAB HEMATOLOGY METHOD 08/18/2025 6:31 AM EDT [facility] Lactate, Venous, Whole Blood 2.1 0.5 - 2.2 mmol/L LAB HEMATOLOGY METHOD 08/18/2025 6:31 AM EDT [facility] Ionized Calcium, Whole Blood 3.9(L) 4.6 - 5.1 mg/dL LAB HEMATOLOGY METHOD 08/18/2025 6:31 AM EDT [facility] Blood Venous blood specimen / Unknown Venipuncture / Unknown 08/18/2025 6:11 AM EDT 08/18/2025 6:27 AM EDT us Alvarez Brice MD LAB BLOOD ORDERABLES Final Result [facility] [address] [place] [address] * XR OUTSIDE IMAGES (08/17/2025 4:41 PM [...] hepatic hydrothorax. Patient presents for thoracentesis. 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 TECHNIQUE: Bonderizer Operator: TRAY CASTING MACHINE OPERATOR Micheal Pee Procedure: Limited chest ultrasound completed with small [...] on 08/17/2025 1:04 AM us Marianna Gordon TRAY CASTING MACHINE OPERATOR IMG US PROCEDURES Final Resu lt * (ABNORMAL) Body Fluid Cell Count W/O Diff (2025 9:25 AM EDT) Specimen Source, Body Fluid Peritoneal Fluid 2025 2:25 PM EDT [facility] Specimen Type Body Fluid 2025 2:25 PM EDT [facility] Color, Body fluid Yellow LAB HEMATOLOGY METHOD 2025 2:25 PM EDT [facility] Appearance, Body fluid Cloudy(A) LAB HEMATOLOGY METHOD 2025 2:25 PM EDT [facility] Volume, Body fluid 45.0 cc LAB HEMATOLOGY METHOD 2025 2:25 PM EDT [facility] Red Blood Cell Count, Body fluid 4,000 uL LAB HEMATOLOGY METHOD 2025 2:25 PM EDT [facility] Total Nucleated Cell Count, Body fluid 129 uL LAB HEMATOLOGY METHOD 2025 2:25 PM EDT [facility] Fluid Container Specimen received in miscellaneous container LAB HEMATOLOGY METHOD 2025 2:25 PM EDT [facility] Body Fluid Peritoneal fluid / Unknown Non-blood Collection / Unknown 2025 9:25 AM EDT 2025 10:44 AM EDT us Micheal Glasgow APRN, DNP LAB BODY FLUIDS AND ST OOLS ORDERABLES Final Result Performing Organization Address City/[facility]/ZIP Co de Phone Number [facility] [address] [place] [address] * LDH - Ascites (07/04/2025 10:08 AM EDT) Only the most recent of2 resultswithin the time period is included. LDH, Fluid 63 U/L 07/04/2025 3:52 PM EDT [facility] Ascites Peritoneal cavity structure / Unknown 07/04/2025 10:08 AM EDT 07/04/2025 12:10 PM EDT Narrative [facility] - 07/04/2025 3:52 PM EDT [...] Organization Address [facility] Co de Phone Number [facility] [address] [place] [address] * XR Abdomen 1 View (07/03/2025 7:02 [...] Urine 821 mg/dL 07/02/2025 4:26 PM EDT [facility] Urine Urine specimen obtained by clean catch procedure / Unknown Non-blood Collection / Unknown 07/02/2025 12:42 PM EDT 07/02/2025 1:01 PM EDT Fabiana Cunningham MD LAB URINE ORDERABLES Final Resu lt [facility] [address] [place] [address] * Sodium, urine, random (07/02/2025 12:42 PM EDT) Sodium, Urine <20 mmol/L 07/02/2025 1:41 PM EDT [facility] Urine Urine specimen obtained by clean catch procedure / Unknown Non-blood Collection / Unknown 07/02/2025 12:42 PM EDT 07/02/2025 1:01 PM EDT us Fabiana Cunningham MD LAB URINE ORDERABLES Final Resu lt Performing Organization Address [facility] Co de Phone Number [facility] [address] [place] [address] * Osmolality, urine (07/02/2025 12:42 PM EDT) Osmolality, Urine 467 50 - 1,200 mOsm/kg 07/02/2025 4:32 PM EDT [facility] Urine Urine specimen obtained by clean catch procedure / Unknown Non-blood Collection / Unknown 07/02/2025 12:42 PM EDT 07/02/2025 1:01 PM EDT us Fabiana Cunningham MD LAB URINE ORDERABLES Final Resu lt Performing Organization Address [facility] Co de Phone Number [facility] [address] [place] [address] * Creatinine, urine, random (07/02/2025 12:42 PM EDT) Creatinine, Urine 146 mg/dL 07/02/2025 1:41 PM EDT [facility] Urine Urine specimen obtained by clean catch procedure / Unknown Non-blood Collection / Unknown 07/02/2025 12:42 PM EDT 07/02/2025 1:01 PM EDT us Fabiana Cunningham MD LAB URINE ORDERABLES Final Resu lt Performing Organization Address [facility] Co de Phone Number [facility] [address] [place] [address] * (ABNORMAL) Peripheral Blood Smear (06/30/2025 12:37 AM EDT) WBC Count 2.74(L) 3.70 - 10.30 10*3/uL LAB HEMATOLOGY METHOD 06/30/2025 1:28 AM EDT [facility] RBC Count 2.74(L) 3.90 - 5.20 10*6/uL LAB HEMATOLOGY METHOD 06/30/2025 1:28 AM EDT [facility] HGB 8.4(L) 11.2 - 15.7 g/dL LAB HEMATOLOGY METHOD 06/30/2025 1:28 AM EDT [facility] HCT 24.8(L) 34.0 - 45.0 % LAB HEMATOLOGY METHOD 06/30/2025 1:28 AM EDT [facility] Platelet Count 40(L) 155 - 369 10*3/uL LAB HEMATOLOGY METHOD 06/30/2025 1:28 AM EDT [facility] MCV 91 79 - 98 fL LAB HEMATOLOGY METHOD 06/30/2025 1:28 AM EDT [facility] MCH 30.7 26.0 - 32.0 pg LAB HEMATOLOGY METHOD 06/30/2025 1:28 AM EDT [facility] MCHC 33.9 30.7 - 35.5 g/dL LAB HEMATOLOGY METHOD 06/30/2025 1:28 AM EDT [facility] RDW 15.3(H) 11.5 - 14.5 % LAB HEMATOLOGY METHOD 06/30/2025 1:28 AM EDT [facility] MPV 10.3 8.8 - 12.5 fL LAB HEMATOLOGY METHOD 06/30/2025 1:28 AM EDT [facility] nRBC 0.0 <=0.0 per 100 WBCs LAB HEMATOLOGY METHOD 06/30/2025 1:28 AM EDT [facility] Differential Type Automated LAB HEMATOLOGY METHOD 06/30/2025 1:28 AM EDT [facility] Neutrophils % 54 % LAB HEMATOLOGY METHOD 06/30/2025 1:28 AM EDT [facility] Lymphocytes % 27 % LAB HEMATOLOGY METHOD 06/30/2025 1:28 AM EDT [facility] Monocytes % 16 % LAB HEMATOLOGY METHOD 06/30/2025 1:28 AM EDT [facility] Eosinophils % 3 % LAB HEMATOLOGY METHOD 06/30/2025 1:28 AM EDT [facility] Basophils % 0 % LAB HEMATOLOGY METHOD 06/30/2025 1:28 AM EDT [facility] Immature Granulocytes % 0 % LAB HEMATOLOGY METHOD 06/30/2025 1:28 AM EDT [facility] Neutrophils Absolute 1.45(L) 1.60 - 6.10 10*3/uL LAB HEMATOLOGY METHOD 06/30/2025 1:28 AM EDT [facility] Lymphocytes Absolute 0.73(L) 1.20 - 3.90 10*3/uL LAB HEMATOLOGY METHOD 06/30/2025 1:28 AM EDT [facility] Monocytes Absolute 0.45 0.30 - 0.90 10*3/uL LAB HEMATOLOGY METHOD 06/30/2025 1:28 AM EDT [facility] Eosinophils Absolute 0.09 0.00 - 0.50 10*3/uL LAB HEMATOLOGY METHOD 06/30/2025 1:28 AM EDT [facility] Basophils Absolute 0.01 0.00 - 0.10 10*3/uL LAB HEMATOLOGY METHOD 06/30/2025 1:28 AM EDT [facility] Immature Granulocytes Absolute 0.01 0.00 - 0.06 10*3/uL LAB HEMATOLOGY METHOD 06/30/2025 1:28 AM EDT [facility] Blood Venous blood specimen / Unknown Venipuncture / Unknown 06/30/2025 12:37 AM EDT 06/30/2025 12:40 AM EDT Narrative [facility] - 06/30/2025 1:28 AM EDT Therapeutic decision making should be based on absolute values, rather than percentages. Fabiana Cunningham MD LAB PATHOLOGY ORDERABLES Final Result Performing Organization Address City/State/[facility] de Phone Number [facility] [address] [place] [phone] * Peripheral blood smear, pathologist interpretation (06/30/2025 12:37 AM EDT) Clinical Diagnosis, Peripheral Smear Pancytopenia LAB HEMATOLOGY METHOD 07/01/2025 12:12 PM EDT [facility] Interpretation , Peripheral Smear Pancytopenia, not morphologically distinct 07/01/2025 12:12 PM EDT [facility] Pathologist Signature, Peripheral Smear 07/01/2025 12:12 PM EDT [facility] Comment:Reviewed by: Stacy King MD LAB CP ASR DISCLAIMER No 07/01/2025 12:12 PM EDT [facility] Blood Venous blood specimen / Unknown Venipuncture / Unknown 06/30/2025 12:37 AM EDT 06/30/2025 12:40 AM EDT Fabiana Cunningham MD LAB PATHOLOGY ORDERABLES Final Result Performing Organization Address City/State/[facility] Co de Phone Number [facility] [address] [place] [address] * (ABNORMAL) Prealbumin (06/28/2025 3:50 AM EDT) Prealbumin, Plasma 5.0(L) 20.0 - 41.0 mg/dL 06/28/2025 1:42 PM EDT [facility] Blood Venous blood specimen / Unknown Venipuncture / Unknown 06/28/2025 3:50 AM EDT 06/28/2025 4:27 AM EDT Chilo Loyola MD LAB BLOOD ORDERABLES Final Result Performing Organization Address [facility] Co de Phone Number [facility] [address] [place] [address] * (ABNORMAL) APTT (06/27/2025 2:37 PM EDT) aPTT 42(H) 25 - 35 sec 06/27/2025 3:10 PM EDT [facility] Blood Venous blood specimen / Unknown Venipuncture / Unknown 06/27/2025 2:37 PM EDT 06/27/2025 2:44 PM EDT Chilo Loyola MD LAB BLOOD ORDERABLES Final Result Performing Organization Address City/[facility] de Phone Number [facility] [address] [place] [address] * Albumin - Ascites (06/27/2025 9:16 AM EDT) Only the most recent of2 resultswithin the time period is included. Albumin, Peritoneal Fluid 0.5 g/dL 06/27/2025 2:46 PM EDT [facility] Peritoneal Fluid Peritoneal cavity structure / Unknown Non-blood Collection / Unknown 06/27/2025 9:16 AM EDT 06/27/2025 11:21 AM EDT Narrative [facility] - 06/27/2025 2:46 PM EDT REPORTING RESULTS Reference Values: No established reference interval. Results should be interpreted in comparison to the concentration in blood and in conjunction with the clinical context. This test was developed and its performance characteristics determined by [facility]. The U.S. Food and Drug Administration has not approved or cleared this test; however, FDA clearance or approval is not currently required for clinical use. The results are not intended to be used as the sole means for clinical diagnosis or patient management decisions. Chilo Loyola MD LAB BODY FLUIDS AND STOOLS ORDERABLES Final Result Performing Organization Address City/[facility] Co de Phone Number [facility] [address] [place] [address] * Morphology (06/27/2025 4:03 AM EDT) Only the most recent of2 resultswithin the time period is included. Pathologist [facility] RBC Morphology Slide Reviewed LAB HEMATOLOGY METHOD 06/27/2025 5:26 AM EDT [facility] Target Cells Present LAB HEMATOLOGY METHOD 06/27/2025 5:26 AM EDT [facility] Blood Venous blood specimen / Unknown Venipuncture / Unknown 06/27/2025 4:03 AM EDT 06/27/2025 4:40 AM EDT Chilo Loyola MD LAB BLOOD ORDERABLES Final Result Performing Organization Address [facility] de Phone Number [facility] [address] [place] [address] * (ABNORMAL) Cystatin C (06/27/2025 4:03 AM EDT) Only the most recent of2 resultswithin the time period is included. Pathologist [facility] Cystatin C 2.97(H) 0.61 - 0.95 mg/L 06/27/2025 11:21 AM EDT [facility] Blood Venous blood specimen / Unknown Venipuncture / Unknown 06/27/2025 4:03 AM EDT 06/27/2025 4:40 AM EDT Result [facility] Chilo Loyola MD LAB BLOOD ORDERABLES Final Result Performing Organization Address City/[facility] Co de Phone Number [facility] [address] [place] [address] * (ABNORMAL) Manual Differential (06/25/2025 3:00 PM EDT) Blasts % 0 % LAB HEMATOLOGY METHOD 06/25/2025 4:38 PM EDT [facility] Promyelocytes % 0 % LAB HEMATOLOGY METHOD 06/25/2025 4:38 PM EDT [facility] Myelocytes % 0 % LAB HEMATOLOGY METHOD 06/25/2025 4:38 PM EDT [facility] Metamyelocytes % 0 % LAB HEMATOLOGY METHOD 06/25/2025 4:38 PM EDT [facility] Neutrophils % 69 % LAB HEMATOLOGY METHOD 06/25/2025 4:38 PM EDT [facility] Lymphocytes % 15 % LAB HEMATOLOGY METHOD 06/25/2025 4:38 PM EDT [facility] Reactive Lymphocytes % 0 % LAB HEMATOLOGY METHOD 06/25/2025 4:38 PM EDT [facility] Monocytes % 11 % LAB HEMATOLOGY METHOD 06/25/2025 4:38 PM EDT [facility] Eosinophils % 1 % LAB HEMATOLOGY METHOD 06/25/2025 4:38 PM EDT [facility] Basophils % 4 % LAB HEMATOLOGY METHOD 06/25/2025 4:38 PM EDT [facility] Blasts Absolute LAB HEMATOLOGY METHOD 06/25/2025 4:38 PM EDT [facility] Promyelocytes Absolute LAB HEMATOLOGY METHOD 06/25/2025 4:38 PM EDT [facility] Myelocytes Absolute LAB HEMATOLOGY METHOD 06/25/2025 4:38 PM EDT [facility] Metamyelocytes Absolute LAB HEMATOLOGY METHOD 06/25/2025 4:38 PM EDT [facility] Neutrophils Absolute 1.61 1.60 - 6.10 10*3/uL LAB HEMATOLOGY METHOD 06/25/2025 4:38 PM EDT [facility] Lymphocytes Absolute 0.35(L) 1.20 - 3.90 10*3/uL LAB HEMATOLOGY METHOD 06/25/2025 4:38 PM EDT [facility] Reactive Lymphocytes Absolute LAB HEMATOLOGY METHOD 06/25/2025 4:38 PM EDT [facility] Monocytes Absolute 0.26(L) 0.30 - 0.90 10*3/uL LAB HEMATOLOGY METHOD 06/25/2025 4:38 PM EDT [facility] Eosinophils Absolute 0.02 0.00 - 0.50 10*3/uL LAB HEMATOLOGY METHOD 06/25/2025 4:38 PM EDT [facility] Basophils Absolute 0.09 0.00 - 0.10 10*3/uL LAB HEMATOLOGY METHOD 06/25/2025 4:38 PM EDT [facility] Blood Venous blood specimen / Unknown Venipuncture / Unknown 06/25/2025 3:00 PM EDT 06/25/2025 3:10 PM EDT us Raymundo Childers MD LAB BLOOD ORDERABLES Final Resul t [facility] [address] [place] [address] * CT MSK OUTSIDE IMAGES (06/23/2025 6:38 PM EDT) Anatomical Region Laterality Modality Computed Tomogra phy 06/23/2025 6:38 PM EDT us Kandice Maldonado TRAY CASTING MACHINE OPERATOR IMG CT PROCEDURES Final Res ult * US OUTSIDE IMAGES (06/23/2025 5:29 PM EDT) Anatomical Region Laterality Modality Ultrasound 06/23/2025 5:29 PM EDT us Kandice Maldonado TRAY CASTING MACHINE OPERATOR IMG US PROCEDURES Final Res ult * Dexa Bone Density (11/07/2024 9:09 AM [...] forearm, right forearm was performed using a [employer] A Dual-energy X-ray Absorptiometry (DXA) scanner (software [...] left forearm, right forearm wasperformed using a [employer] Horizon A Dual-energy X-ray Absorptiometry (DXA)scanner (software [...] City/[facility]/ZIP Co de Phone Number [facility] [address] [place] [address] * Hepatitis C Antibody (10/22/2024 11:44 AM EST) Hepatitis C Antibody Negative Negative 10/22/2024 1:00 PM EST [facility] Blood Venous blood specimen / Unknown Venipuncture / Unknown 10/22/2024 11:44 AM EST 10/22/2024 12:17 PM EST Yeni Lebron APRN, DNP LAB BLOOD ORDERABLES Final Result [facility] [address] [place] [address] * Colonoscopy External Result (01/14/2023) Anatomical Region Laterality Modality Endoscopy Narrative 01/14/2023 Ordered by an unspecified provider. us External Provider GI PROCEDURE ORDERABLES Final Result * Cytology (04/12/2003 12:00 AM EDT) 04/12/2003 04/16/2003 Narrative SUNQUEST - 04/26/2003 7:51 AM EDT [facility] MR #: [id number] [facility] [place], [place] [address] 1960 (Age: 42) FW Collect Date: 04/12/2003 00:00 Receipt Date: 04/16/2003 00:00 Page 1 DEPARTMENT OF PATHOLOGY AND LABORATORY MEDICINE CYTOPATHOLOGY REPORT Email: [email or web address] ATTENDING MD/Practitioner: Rosailne Cooper MD Service: PAT Location: OUTS Reported: [...] results is suggested (please call Microbiology at [phone] for results). CLINICAL INFORMATION: Menstrual History: Cyclic Date of Last Menstrual Period: 11/23 Contraceptive History: control pills Other Clinical Conditions: Per computer, patient has a history of previous abnormal pap SPECIMEN DESCRIPTION: A: THIN PREP (CERVICAL/VAGINAL) THIN PREP PROCESS CELLULAR ENHANCEMENT ICD: 795.00 ABNORMAL GLANDULAR PAPANICOLAOU SMEAR OF CERVIX F: A; THIN SCRN 48273, THIN SCRN 83112 <CR>, THIN DX 32126 SNOMED CODES: A; [id number] In cases where a pathologist has signed [...] file Group ID:Not on file Type:Medicaid Address: [address] [id number] [place] Advance Directives Documents on File Type Date Recorded 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 Extractive Metallurgist Expl 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 Advance Directives and Livin g [...] Second Alternate Health Care Agent Care Teams Tube Dispatcher Relationship Specialty Start Date End Date Lillie Pritchard MD [address] [place] [address] [phone] PCP - General Family Medicine 09/03/25 Lea Fernando [address] [facility] [address] [place] [address] Crewman Main Battle Tank Endocrinology 08/29/24 Rachel Ray APRN [address] [facility] [address] [place] [address] Nurse Practitioner Gastroenterology 09/24/24 Tamera Isabel LPN VALUE-BASED TRANSFORMATION PROGRAM Licensed Practical Nurse 05/29/25 Shaniqua Trevino LPN TCM Nurse 08/21/25
--- OUTSIDE RECORDS SUMMARY | 2025-09-15 01:34 | XMS_ITS | Encounter Summary ---
Author Organization [facility] Address [address] [place] [address] Care Team Providers Care Travel Registered Nurse Oncology Name Role Phone Lea Fernando Unavailable [phone] Rachel Ray TIMBER TREATING TANK OPERATOR Unavailable [phone] Alvarez Zimmer MD Primary Care Provider Tamera Isabel BLEACHER SULFITE PULP Unavailable UnavailShaniqua Lomeli BLEACHER SULFITE PULP Unavailable Unavailable Encounter Details Date Type Department [...] drinks on one occasion? Never 06/25/2025 [facility] - Occupational [...] in a prison (including now)? No 08/19/2025 [facility] Utilities Answer Date Recorded In [...] drink first t kennedy in the morning (EYE-ARTIFICIAL CHERRY MAKER) to steady your nerves or to [...] Description 09/17/2025 9:45 AM EDT Clinical Support [facility] [place] [address] [place] [address] 09/17/2025 10:30 AM EDT Social Work [facility] [place] [address] [place] [address] Lea Reilly, [place] [address] 09/17/2025 11:20 AM EDT Office Visit [facility] [place] [address] [place] [address] Octavia Herrera, MARIA GUADALUPE [address] [facility] [address] [place] [address] 09/19/2025 10:30 AM EDT Appointment [facility] [address] [place] [address] 09/19/2025 11:30 AM EDT Appointment [facility] [address] [place] [address] 09/26/2025 7:30 AM EST Appointment [facility] [address] [place] [address] 09/26/2025 8:30 AM EST Appointment [facility] [address] [place] [address] 10/01/2025 9:00 AM EST Office Visit [facility] [address] [facility], [address] [place] [address] Lillie Pritchard MD [address] [place] [address] 10/03/2025 12:30 PM EST Appointment [facility] [address] [place] [address] 10/03/2025 1:30 PM EST Appointment [facility] [address] [place] [address] 12/20/2025 11:00 AM EST Office Visit [facility] Endocrinology [address] [place] [address] Miranda Hobson P, TIMBER TREATING TANK OPERATOR [address] [facility] [address] [place] [address] documented as of this encounter Visit Diagnoses [...] documented as of this encounter Care Teams Travel Registered Nurse Oncology Relationship Specialty Start Date End Date Alvarez Zimmer MD [address] [place] [address] PCP - General Family Medicine 12/07/24 09/02/25 Lea Fernando [address] [facility] [address] [place] [address] Fluorescent Solution Mixer Endocrinology 08/29/24 Rachel Ray APRN [address] [facility] [address] [place] [address] Nurse Practitioner Gastroenterology 09/24/24 Tamera Isabel LPN VALUE-BASED TRANSFORMATION PROGRAM Licensed Practical Nurse 05/29/25 Shaniqua Trevino LPN TCM Nurse 08/21/25 documented as of this encounter
--- OUTSIDE RECORDS SUMMARY | 2025-09-15 01:35 | XMS_ITS | Encounter Summary ---
Author Organization [facility] Address [address] [place] [address] Care Team Providers Care Tumor Registrar Name Role Phone Lea Fernando Unavailable [phone] Rachel Ray ENVIRONMENTAL SYSTEMS COORDINATOR Unavailable [phone] Alvarez Zimmer MD Primary Care Provider [phone] Tamera Isabel NEWSPAPER DISTRIBUTOR SUPERVISOR Unavailable UnavailShaniqua Lomeli LPN Unavailable Unavailable Encounter Details Date Type Department Care Team (Late st Contact Info) Description 08/17/2025 Orders Only External Location [address] [place] [address] Provider, External Social History Tobacco Use Types [...] How often do you attend [facility] or tenriism services? Patient unable to [...] How often do you attend chur or tenriism services? Never 05/29/2025 Do you [...] a skilled nursing (including now)? No 08/19/2025 [facility] Utilities Answer Date Recorded In the past [...] drink first t kennedy in the morning (EYE-AUTOMOTIVE SERVICE PORTER) to steady your nerves or to get [...] Description 09/17/2025 9:45 AM EDT Clinical Support [facility] [place] [address] [place] [address] 09/17/2025 10:30 AM EDT Social Work [facility] [address] [place] [address] Lea Reilly, [place] [id number] 09/17/2025 11:20 AM EDT Office Visit [facility] [place] [address] [place] [address] Octavia Herrera, PA [address] [place] [address] 09/19/2025 10:30 AM EDT Appointment [facility] Radiology [address] [place] [address] 09/19/2025 11:30 AM EDT Appointment [facility] [address] [place] [address] 09/26/2025 7:30 AM EST Appointment [facility] [address] [place] [address] 09/26/2025 8:30 AM EST Appointment [facility] [address] [place] [address] 10/01/2025 9:00 AM EST Office Visit [facility] [address] [facility], [address] [place] [address] Lillie Pritchard MD [address] [place] [id number] 10/03/2025 12:30 PM EST Appointment [facility]iology [address] [place] [address] 10/03/2025 1:30 PM EST Appointment [facility] [address] [place] [address] 12/20/2025 11:00 AM EST [facility] [address] [place] [address] Miranda Hobson, ENVIRONMENTAL SYSTEMS COORDINATOR [address] [facility] [address] [place] [address] documented as of this encounter Procedures Procedure [...] documented as of this encounter Care Teams Tumor Registrar Relationship Specialty Start Date End Date Alvarez Zimmer MD [address] [place] [address] PCP - General Family Medicine 12/07/24 09/02/25 Lea Fernando [address] [facility] [address] [place] [address] Voice Teacher Endocrinology 08/29/24 Rachel Ray, ENVIRONMENTAL SYSTEMS COORDINATOR [address] [place] [address] Nurse Practitioner Gastroenterology 09/24/24 Tamera Isabel LPN VALUE-BASED TRANSFORMATION PROGRAM Licensed Practical Nurse 05/29/25 Shaniqua Trevino LPN TCM Nurse 08/21/25 documented as of this encounter
--- OUTSIDE RECORDS SUMMARY | 2025-09-15 01:35 | XMS_ITS | Encounter Summary ---
Author Organization [facility] Address [address] [place] [address] Care Team Providers Care Byproduct Engineer Name Role Phone NaseemVivTor, Lea Clarke Unavailable [phone] Rachel Ray TECHNICAL SYSTEMS ARCHITECT Unavailable [phone] Alvarez Zimmer MD Primary Care Provider [phone] Tamera Isabel DIRECTOR OF LITIGATION Unavailable Unavailabl e Shaniqua Trevino LPN Unavailable Unavailable Reason for Visit * Reason Comments TCM Encounter Details Date Type Department Care Team (Late st Contact Info) Description 08/21/2025 Patient Outreach POP[facility] [address] [facility], [address] [place] [address] Shaniqua Trevino LPN TCM Social [...] you attend [facility] or yazdanism services? Patient unable to answer 01/10/2025 Do you belong to any clubs o r organizations such as rastafari groups, unions, [employer] or athletic groups, or school groups? [...] often do you attend chur ch or yazdanism services? Never 05/29/2025 Do you belong to [...] more drinks on one occasion? Never 06/25/2025 [facility] - Occupational [...] living in a longterm (including now)? No 08/19/2025 [facility] Utilities Answer Date Recorded In the [...] drink first t kennedy in the morning (EYE-HADOOP ENGINEER) to steady your nerves or to [...] Date: 08/18/2025 Discharge Date: 08/20/2025 [facility] Discharge Diagnosis: Hepatic encephalopathy 08/21/2025 TCM call # 1 Patient Reached: Yes Outcome: Spoke with nurse, [place], at [facility], states that patient [...] EDT Clinical Support [facility] [place] [address] [facility] [address] [place] [address] 09/17/2025 10:30 AM EDT Social Work [facility] [place] [address] [facility] [address] [place] [address] [place] [address] 09/17/2025 11:20 AM EDT Office Visit [facility] [place] [address] [facility] [address] [place] [address] Octavia Herrera, MARIA GUADALUPE [address] [facility] [address] [place] [address] 09/19/2025 10:30 AM EDT Appointment [facility] Inter[facility] Radiology [address] [place] [address] 09/19/2025 11:30 AM EDT Appointment [facility] [address] [place] [address] 09/26/2025 7:30 AM EST Appointment [facility] [address] [place] [address] 09/26/2025 8:30 AM EST Appointment [facility] [address] [place] [address] 10/01/2025 9:00 AM EST Office Visit [address], [address] [place] [address] Lillie Pritchard MD [address] [place] [address] 10/03/2025 12:30 PM EST Appointment [facility] [address] [place] [address] 10/03/2025 1:30 PM EST Appointment [facility] [address] [place] [address] 12/20/2025 11:00 AM EST Office Visit [facility] Endocrinology [address] [place] [address] Miranda Hobson, TECHNICAL SYSTEMS ARCHITECT [address] [facility] 125 [place] [address] documented as of this encounter [...] documented as of this encounter Care Teams Byproduct Engineer Relationship Specialty Start Date End Date Alvarez Zimmer MD [address] [place] [address] PCP - General Family Medicine 12/07/24 09/02/25 Lea Fernando [address] [facility] 125 [place] [address] Logging Contractor Endocrinology 08/29/24 Rachel Ray, TECHNICAL SYSTEMS ARCHITECT [address] [facility] [address] [place] [address] Nurse Practitioner Gastroenterology 09/24/24 Tamera Isabel LPN VALUE-BASED TRANSFORMATION PROGRAM Licensed Practical Nurse 05/29/25 Shaniqua Trevino LPN TCM Nurse 08/21/25 documented as of this encounter
--- OUTSIDE RECORDS SUMMARY | 2025-09-15 01:35 | XMS_ITS ---
Author Organization [facility] Address [address] [place] [address] Care Team Providers Care Biztalk Developer Name Role Phone Lea Fernando Unavailable [phone] Rachel Ray AMPOULE WASHING MACHINE OPERATOR Unavailable [phone] Tamera Isabel FUR BLOWER OPERATOR Unavailable UnavailShaniqua Lomeli LPN Unavailable Unavailable Lillie Pritchard MD Primary Care Provider [phone] Transitional Care Management Status:Active (Active) Start date:08/21/2025 Enrollment date:08/21/2025 Enrollment reason:Identified using hospital discharge data Overview This episode type is for outpatient care managers enrolling patients in the [facility] Transitional Care Management program. Case Team Name Relationship Phone Shaniqua Trevino LPN(Responsible Staff) TCM Nurse Continued Care and Services Coordination
--- OUTSIDE RECORDS SUMMARY | 2025-09-15 01:35 | XMS_ITS | Encounter Summary ---
Author Organization [facility] Address [address] [place] [address] Care Team Providers Care Truck Cleaner Name Role Phone Lea Fernando Unavailable [phone] Rachel Ray NAILHEAD PUNCHER Unavailable [phone] Alvarez Zimmer MD Primary Care Provider [phone] Tamera Isabel CARD TENDER Unavailable Unavailabl e Encounter Details Date [...] attend [facility] or sabianist services? Never 05/29/2025 Do you [...] more drinks on one occasion? Never 06/25/2025 [facility] [address] of Occupat ional [facility] - Occupational Stress Questionnaire [...] [place] (including now)? No 08/19/2025 [facility] Utilities [...] drink first t kennedy in the morning (EYE-MINERAL ORE PROCESSING LABOURER) to steady your nerves or to get [...] Description 09/17/2025 9:45 AM EDT Clinical Support [facility] [place] [address] [address] 09/17/2025 10:30 AM EDT Social Work [facility] [place] [address] [address] Lea Reilly, LIAISON INSPECTION LABORATORY ASSISTANT [place] [id number] 09/17/2025 11:20 AM EDT Office Visit [facility] [address] [place] [address] Octavia Herrera, PA [address] [place] [address] 09/19/2025 10:30 AM EDT Appointment [facility] Interventional Radiology [address] [place] [address] 09/19/2025 11:30 AM EDT Appointment [facility] Inter[facility] Radiology [address] [place] [address] 09/26/2025 7:30 AM EST Appointment [facility] [address] [place] [address] 09/26/2025 8:30 AM EST Appointment [facility] Inter[facility] Radiology [address] [place] [address] 10/01/2025 9:00 AM EST Office Visit [facility] [address], [address] [place] [address] Lillie Pritchard MD [address] [place], [place] [address] 10/03/2025 12:30 PM EST Appointment [facility] Inter[facility] Radiology [address] [place] [address] 10/03/2025 1:30 PM EST Appointment [facility] Inter[facility] Radiology [address] [place] [address] 12/20/2025 11:00 AM EST Office Visit [facility] Endocrinology [address] [place] [address] Miranda Hobson, NAILHEAD PUNCHER [address] [place] [address] documented as of this encounter [...] as of this encounter Care Teams Truck Cleaner Relationship Specialty Start Date End Date Alvarez Zimmer MD [address] [place] [address] PCP - General Family Medicine 12/07/24 09/02/25 Lea Fernando [address] [facility] [address] [place] [address] Process Mold Technician Endocrinology 08/29/24 Rachel Ray, NAILHEAD PUNCHER [address] [place] [address] Nurse Practitioner Gastroenterology 09/24/24 Tamera Isabel LPN VALUE-BASED TRANSFORMATION PROGRAM Licensed Practical Nurse 05/29/25 documented as of this encounter
--- OUTSIDE RECORDS SUMMARY | 2025-09-15 01:35 | XMS_ITS | Encounter Summary ---
Author Organization [facility] Address [address] [place] [address] Care Team Providers Care Emergency Management System Director Name Role Phone Lea Fernando Unavailable [phone] Rachel Ray PRODUCTION LINE MECHANIC Unavailable [phone] Alvarez Zimmer MD Primary Care Provider [phone] Tamera Isabel ASSISTANT PROFESSOR SURGICAL TECHNOLOGY Unavailable Unavailabl Monique Garay LPN Unavailable Unavailable [...] in the past 12 m [facility], were you homeless or living [...] first t kennedy in the morning (EYE-MEDICAL FRONT DESK SPECIALIST) to steady your nerves or to [...] Support [facility] Transplant [place] [address] [place] [address] 09/17/2025 10:30 AM EDT Social Work [facility] [place] [address] [address] Lea Reilly, [place] [id number] 09/17/2025 11:20 AM EDT Office Visit [facility] [address] [place] [address] Octavia Herrera, PA [address] [place] [address] 09/19/2025 10:30 AM EDT Appointment [facility] Interventional Radiology [address] [place] [address] 09/19/2025 11:30 AM EDT Appointment [facility] Interventional Radiology [address] [place] [address] 09/26/2025 7:30 AM EST Appointment [facility] Inter[facility] Radiology [address] [place] [address] 09/26/2025 8:30 AM EST Appointment [facility] Interventional Radiology [address] [place] [address] 10/01/2025 9:00 AM EST Office Visit [facility] [address] [place] [address] Lillie Pritchard MD [address] [place], [place] [address] 10/03/2025 12:30 PM EST Appointment [facility] Interventional Radiology [address] [place] [address] 10/03/2025 1:30 PM EST Appointment [facility] Interventional Radiology [address] [place] [address] 12/20/2025 11:00 AM EST Office Visit [facility] Endocrinology [address] [place] [address] Miranda Hobson, PRODUCTION LINE MECHANIC [address] [place] [address] documented as of this encounter [...] documented as of this encounter Care Teams Emergency Management System Director Relationship Specialty Start Date End Date Alvarez Zimmer MD [address] [place] [address] PCP - General Family Medicine 12/07/24 09/02/25 Lea Fernando [address] [facility] [address] [place] [address] Zig Zag Stitcher Endocrinology 08/29/24 Rachel Ray APRN [address] [place] [address] Nurse Practitioner Gastroenterology 09/24/24 Tamera Isabel LPN VALUE-BASED TRANSFORMATION PROGRAM Licensed Practical Nurse 05/29/25 Monique Tapia LPN VALUE-[place]ED [place] [address] TCM Nurse 07/10/25 08/09/25 documented as of this encounter
--- OUTSIDE RECORDS SUMMARY | 2025-09-15 01:35 | XMS_ITS ---
Author Organization [facility] Address [address] [place] [address] Care Team Providers Care Stenotypist Name Role Phone Lea Fernando Unavailable [phone] Rachel Ray TEMPLATE INSPECTOR Unavailable [phone] Tamera Isabel FULL DECATOR OPERATOR Unavailable UnavailShaniqua Lomeli FULL DECATOR OPERATOR Unavailable Unavailable Lillie Pritchard MD Primary Care Provider [phone] Transplant Episode Liver Candidate [facility] ([place], [place]) - [facility] waitlisted on 02/19/2025 Marked as Inactive on 05/08/2025 Reason: Candidate Workup Incomplete Liver CoordinatorWilma Arana RN Fax: N/A Email: N/A Scores Score Value Updated Expires Exceptions/Colt sons CPRA Not available MELD (Calc) 29 08/20/2025 [place] Organ Diagnosis Organ Primary Contributory 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) Care Team Name Role Phone Fax Email Wilma Arana RN Liver Coordinator [phone] N/A N/A Lea Reilly LCSW Title 1 Tutor [phone] N/A N/A Gerson Arora MD Surgeon [phone] N/A Wilma Howard APRN Primary Care Provider [phone] N/A Rachel Ray APRN Referring Physician [phone] N/A Events Pre-Transplant Referred: 09/24/2024 Evaluation began: 10/08/2024 Committee: 01/28/2025 Center waitlisted: 02/19/2025 Appointments (08/16/2025 - 10/16/2025) When With Visit Type Description 09/03/2025 [facility] Brady Lloyd Transition of Care [place] er 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
--- OUTSIDE RECORDS SUMMARY | 2025-09-15 01:35 | XMS_ITS ---
Author Organization [facility] Address [address] [place] [address] Care Team Providers Care Cargo Broker Name Role Phone Lea Fernando Unavailable [phone] Rachel Ray SLOPE RUNNER Unavailable [phone] Tamera Isabel LPN Unavailable UnavailShaniqua Lomeli GAS METER REPAIR SUPERVISOR Unavailable Unavailable Lillei Pritchard MD Primary Care Provider [phone] Annual Wellness Status:Active (Active) Start date:05/29/2025 Enrollment date:05/29/2025 Enrollment reason:Identified using claims or encounter data Case Team Name Relationship Phone Tamera Isabel LPN(Responsible Staff) Licensed Practical Nurse Continued Care and Services Coordination
--- OUTSIDE RECORDS SUMMARY | 2025-09-15 01:35 | XMS_ITS ---
Author Organization [facility] Address [address] [place] [address] Care Team Providers Care Industrial Diamond Polisher Name Role Phone Lea Fernando Unavailable [phone] Rachel Ray FLAVORER Unavailable [phone] Tamera Isabel BAKER BENCH Unavailable UnavailShaniqua Lomeli BAKER BENCH Unavailable Unavailable Lillie Pritchard MD Primary Care Provider [phone] Transitional Care Management Status:Closed (Closed) Start date:07/10/2025 Enrollment reason:Identified using hospital discharge data End date:08/09/2025 Close reason:Patient graduated Overview This episode type is for outpatient care managers enrolling patients in the [facility] Transitional Care Management program. Continued Care and Services Coordination
--- OUTSIDE RECORDS SUMMARY | 2025-09-15 01:35 | XMS_ITS | Encounter Summary ---
Author Organization [facility] Address [address] [place] [address] Care Team Providers Care Roller Inspector And Mender Name Role Phone Lea Fernando Unavailable [phone] Rachel Ray POLY AREA SUPERVISOR Unavailable [phone] Alvarez Zimmer MD Primary Care Provider [phone] Tamera Isabel SKEIN INSPECTOR Unavailable UnavailShaniqua Lomeli SKEIN INSPECTOR Unavailable Unavailable Lillie Pritchard MD Primary Care Provider [phone] Reason for Visit * Reason Onset Date Comments HCN - Patient Message 08/16/2025 Encounter Details Date Type Department Care Team (Late st Contact Info) Description 08/16/2025 Telephone [facility] Endocrinology [address] [place] [address] Sharif Moreno, DPNicole [address] [facility] [address] [place] [address] HCN - Patient Message Social [...] you attend [facility] or cheondoism services? Patient unable to [...] you attend [facility] or cheondoism services? Never 05/29/2025 Do you [...] in a mcfp (including now)? No 08/19/2025 [facility] Utilities Answer Date Recorded In the [...] drink first t kennedy in the morning (EYE-PRIME BROKER) to steady your nerves or to get [...] optimal time of day to reach caller: [phone] Note: Please do not reply to this [...] Description 09/17/2025 9:45 AM EDT Clinical Support [facility] [place] [address] [place] [address] 09/17/2025 10:30 AM EDT Social Work [facility] [place] [address] [place] [address] Lea Reilly, [place] [address] 09/17/2025 11:20 AM EDT Office Visit [facility] [place] [address] [facility] [address] [place] [address] Octavia Herrera, MARIA GUADALUPE [address] [place] [address] 09/19/2025 10:30 AM EDT Appointment [facility] [address] [place] [address] 09/19/2025 11:30 AM EDT Appointment [facility] [address] [place] [address] 09/26/2025 7:30 AM EST Appointment [facility] [address] [place] [address] 09/26/2025 8:30 AM EST Appointment [facility] [address] [place] [address] 10/01/2025 9:00 AM EST Office Visit [facility] Medicine [address] [facility], [address] [place] [address] Lillie Pritchard MD [address] [id number] 10/03/2025 12:30 PM EST Appointment [facility] [address] [place] [address] 10/03/2025 1:30 PM EST Appointment [facility] [address] [place] [address] 12/20/2025 11:00 AM EST Office Visit [facility] Endocrinology [address] [place] [address] Miranda Hobson, POLY AREA SUPERVISOR [address] [facility] [address] [place] [address] documented as of this encounter [...] documented as of this encounter Care Teams Roller Inspector And Mender Relationship Specialty Start Date End Date Alvarez Zimmer MD [address] [place] [address] PCP - General Family Medicine 12/07/24 09/02/25 Lillie Pritchard MD [address] [place] [address] PCP - General Family Medicine 09/03/25 Lea Fernando [address] [facility] [address] [place] [address] [facility] Endocrinology 08/29/24 Rachel Ray APRN [address] [place] [address] Nurse Practitioner Gastroenterology 09/24/24 Tamera Isabel LPN VALUE-BASED TRANSFORMATION PROGRAM Licensed Practical Nurse 05/29/25 Shaniqua Trevino LPN TCM Nurse 08/21/25 documented as of this encounter
--- OUTSIDE RECORDS SUMMARY | 2025-09-15 01:35 | XMS_ITS | Encounter Summary ---
Author Organization [facility] Address [address] [place] [address] Care Team Providers Care Customs Guard Name Role Phone Lea Fernando Unavailable [phone] Rachel Ray LOAN ASSOCIATE Unavailable [phone] Alvarez Zimmer MD Primary Care Provider [phone] Tamera Isabel TACK WELDER Unavailable UnavailShaniqua Lomeli LPN Unavailable Unavailable Encounter Details Date Type Department Care Team (Late st Contact Info) Description 08/17/2025 Orders Only External Location [address] [place] [address] Provider, External Social History Tobacco Use Types [...] do you attend [facility] or denominational services? Patient unable to [...] in a penitentiary (including now)? No 08/19/2025 [facility] Utilities Answer Date Recorded In [...] drink first t kennedy in the morning (EYE-WELDER GUN) to steady your nerves or to get [...] Description 09/17/2025 9:45 AM EDT Clinical Support [facility] [place] [address] [place] [address] 09/17/2025 10:30 AM EDT Social Work [facility] [address] [place] [address] Lea Reilly, CENTRAL OFFICE MECHANICJames [place] [id number] 09/17/2025 11:20 AM EDT Office Visit [facility] [place] [address] [place] [address] Octavia Herrera, PA [address] [place] [address] 09/19/2025 10:30 AM EDT Appointment [facility] [address] [place] [address] 09/19/2025 11:30 AM EDT Appointment [facility] [address] [place] [address] 09/26/2025 7:30 AM EST Appointment [facility] [address] [place] [address] 09/26/2025 8:30 AM EST Appointment [facility] [address] [place] [address] 10/01/2025 9:00 AM EST Office Visit [facility] [address] [facility], [address] [place] [address] Lillie Pritchard MD [address] [id number] 10/03/2025 12:30 PM EST Appointment [facility] [address] [place] [address] 10/03/2025 1:30 PM EST Appointment [facility] [address] [place] [address] 12/20/2025 11:00 AM EST Office Visit [facility] Endocrinology [address] [place] [address] Miranda Hobson, LOAN ASSOCIATE [address] [facility] [address] [place] [address] documented as of this encounter Procedures Procedure [...] documented as of this encounter Care Teams Customs Guard Relationship Specialty Start Date End Date Alvarez Zimmer MD [address] [place] [address] PCP - General Family Medicine 12/07/24 09/02/25 Lea Fernando [address] [facility] [address] [place] [address] Commercial Subcontractor Endocrinology 08/29/24 Rachel Ray, LOAN ASSOCIATE [address] [place] [address] Nurse Practitioner Gastroenterology 09/24/24 Tamera sIabel LPN VALUE-BASED TRANSFORMATION PROGRAM Licensed Practical Nurse 05/29/25 Shaniqua Trevino LPN TCM Nurse 08/21/25 documented as of this encounter
--- OUTSIDE RECORDS SUMMARY | 2025-09-15 01:35 | XMS_ITS | Encounter Summary ---
Author Organization [facility] Address [address] [place] [address] Care Team Providers Care Pourer Bull Ladle Name Role Phone Lea Fernando Unavailable [phone] Rachel Ray RESIDENT SERVICE COORDINATOR Unavailable [phone] Alvarez Zimmer MD Primary Care Provider [phone] Tamera Isabel COMB SETTER Unavailable UnavailShaniqua Lomeli COMB SETTER Unavailable Unavailable Encounter Details Date Type Department Care Team (Late st Contact Info) Description 08/17/2025 Orders Only External Location [address] [place] [address] Rowan Castellano S, DO [address] [place] [address] Social History Tobacco Use Types [...] o r organizations such as anabaptist groups, [employer], [facility] or athletic groups, or school groups? [...] you attend [facility] ch or scientologist services? Never 05/29/2025 Do you belong to any clubs o r organizations such as anabaptist groups, unions, [employer] or athletic groups, or school groups? No [...] drinks on one occasion? Never 06/25/2025 [facility] - Occupational Stress Questionnaire Answer [...] in a prison (including now)? No 08/19/2025 [facility] Utilities Answer Date Recorded In the [...] first t kennedy in the morning (EYE-FIELD WORKER) to steady your nerves or to [...] EDT Clinical Support [facility] [address] [place] [address] 09/17/2025 10:30 AM EDT Social Work [facility] [address] [place] [address] Lea Reilly, [place] [address] 09/17/2025 11:20 AM EDT Office Visit [facility] [address] [place] [address] Octavia Herrera, PA [address] [place] [address] 09/19/2025 10:30 AM EDT Appointment [facility] [address] [place] [address] 09/19/2025 11:30 AM EDT Appointment [facility] [address] [place] [address] 09/26/2025 7:30 AM EST Appointment [facility] [address] [place] [address] 09/26/2025 8:30 AM EST Appointment [facility] [address] [place] [address] 10/01/2025 9:00 AM EST Office Visit [address], [address] [place] [address] Lillie Pritchard MD [address] [place] [address] 10/03/2025 12:30 PM EST Appointment [facility] [address] [place] [address] 10/03/2025 1:30 PM EST Appointment [facility] [address] [place] [address] 12/20/2025 11:00 AM EST Office Visit [facility] Endocrinology [address] [place] [address] Miranda Hobson APRN [address] [facility] [address] [place] [address] documented as of this encounter [...] documented as of this encounter Care Teams Pourer Bull Ladle Relationship Specialty Start Date End Date Alvarez Zimmer MD [address] [place] [address] PCP - General Family Medicine 12/07/24 09/02/25 Lea Fernando [address] [facility] [address] [place] [address] Play Therapist Endocrinology 08/29/24 Rachel Ray, RESIDENT SERVICE COORDINATOR [address] [place] [address] Nurse Practitioner Gastroenterology 09/24/24 Tamera Isabel LPN VALUE-BASED TRANSFORMATION PROGRAM Licensed Practical Nurse 05/29/25 Shaniqua Trevino LPN TCM Nurse 08/21/25 documented as of this encounter
--- OUTSIDE RECORDS SUMMARY | 2025-09-15 01:35 | XMS_ITS | Encounter Summary ---
Author Organization [facility] Address [address] [place] [address] Care Team Providers Care Or Assistant Name Role Phone Lea Fernando Unavailable [phone] Rachel Ray REGISTERED DIETITIAN Unavailable [phone] Alvarez Zimmer MD Primary Care Provider [phone] Tamera Isabel SUPERVISOR MODERN LANGUAGES Unavailable Unavailabl e Encounter Details Date Type [...] health [facility] or baptism services? Never 05/29/2025 Do you [...] more drinks on one occasion? Never 06/25/2025 [facility] of Occupat ional [facility] - Occupational Stress Questionnaire Answer Date [...] in a fci (including now)? No 08/19/2025 [facility] Utilities Answer Date Recorded In [...] drink first t kennedy in the morning (EYE-REELING AND TUBING MACHINE OPERATOR) to steady your nerves or [...] Description 09/17/2025 9:45 AM EDT Clinical Support [facility] [address] [place] [address] 09/17/2025 10:30 AM EDT Social Work [facility] [place] [address] [place] [address] Lea Reilly, [place] [address] 09/17/2025 11:20 AM EDT Office Visit [facility] [address] [place] [address] Octavia Herrera, PA [address] [place] [address] 09/19/2025 10:30 AM EDT Appointment [facility] [address] [place] [address] 09/19/2025 11:30 AM EDT Appointment [facility] [address] [place] [address] 09/26/2025 7:30 AM EST Appointment [facility] [address] [place] [address] 09/26/2025 8:30 AM EST Appointment [facility] [address] [place] [address] 10/01/2025 9:00 AM EST Office Visit [facility] [address] [place] [address] Lillie Pritchard MD [address] [place], [place] [address] 10/03/2025 12:30 PM EST Appointment [facility] [address] [place] [address] 10/03/2025 1:30 PM EST Appointment [facility] [address] [place] [address] 12/20/2025 11:00 AM EST Office Visit [facility] Endocrinology [address] [place] [address] Miranda Hobson, REGISTERED DIETITIAN [address] [place] [address] documented as of this encounter Visit Diagnoses [...] documented as of this encounter Care Teams Or Assistant Relationship Specialty Start Date End Date Alvarez Zimmer MD [address] [place] [address] PCP - General Family Medicine 12/07/24 09/02/25 Lea Fernando [address] [place] [address] City Bus Driver Endocrinology 08/29/24 Rachel Ray, REGISTERED DIETITIAN [address] [place] [address] Nurse Practitioner Gastroenterology 09/24/24 Tamera Isabel LPN VALUE-BASED TRANSFORMATION PROGRAM Licensed Practical Nurse 05/29/25 documented as of this encounter
--- OUTSIDE RECORDS SUMMARY | 2025-09-15 01:35 | XMS_ITS | Encounter Summary ---
Author Organization [facility] Address [address] [place] [address] Care Team Providers Care Hvac R Tech Name Role Phone Lea Fernando Unavailable [phone] Rachel Ray MOBILE HEALTH VEHICLE OPERATOR Unavailable [phone] Alvarez Zimmer MD Primary Care Provider [phone] Tamera Isabel DIETARY AIDE TEACHER Unavailable Unavailabl e Encounter Details Date [...] you attend [facility] or caodaism services? Never 05/29/2025 Do you [...] on one occasion? Never 06/25/2025 [facility] [place] of Occupat ional [facility] - Occupational Stress Questionnaire Answer Date [...] drink first t kennedy in the morning (EYE-FILENET ADMIN) to steady your nerves or to get [...] 09/17/2025 9:45 AM EDT Clinical Support [facility] [address] [place] [address] 09/17/2025 10:30 AM EDT Social Work [facility] [place] [address] [place] [address] Lea Reilly, [place] [address] 09/17/2025 11:20 AM EDT Office Visit [facility] [address] [place] [address] Octavia Herrera, MARIA GUADALUPE [address] [place] [address] 09/19/2025 10:30 AM EDT Appointment [facility] [address] [place] [address] 09/19/2025 11:30 AM EDT Appointment [facility] [address] [place] [address] 09/26/2025 7:30 AM EST Appointment [facility] [address] [place] [address] 09/26/2025 8:30 AM EST Appointment [facility] [address] [place] [address] 10/01/2025 9:00 AM EST Office Visit [facility] [address] [facility], [address] [place] [address] Lillie Pritchard MD [address] [place] [address] 10/03/2025 12:30 PM EST Appointment [facility] [address] [place] [address] 10/03/2025 1:30 PM EST Appointment [facility] [address] [place] [address] 12/20/2025 11:00 AM EST Office Visit [facility] Endocrinology [address] [place] [address] Miranda Hobson P, MOBILE HEALTH VEHICLE OPERATOR [address] [facility] [address] [place] [address] documented as of this encounter Visit Diagnoses [...] documented as of this encounter Care Teams Hvac R Tech Relationship Specialty Start Date End Date Alvarez Zimmer MD [address] [place] [address] PCP - General Family Medicine 12/07/24 09/02/25 Lea Fernando [address] [place] [address] Handkerchief Presser Endocrinology 08/29/24 Rachel Ray APRN [address] [place] [address] Nurse Practitioner Gastroenterology 09/24/24 Tamera Isabel LPN VALUE-BASED TRANSFORMATION PROGRAM Licensed Practical Nurse 05/29/25 documented as of this encounter
--- OUTSIDE RECORDS SUMMARY | 2025-09-15 01:35 | XMS_ITS | Encounter Summary ---
Author Organization [facility] Address [address] [place] [address] Care Team Providers Care Territory Manager General Sales Name Role Phone Lea Fernando Unavailable [phone] Rachel Ray MARKING CLERK Unavailable [phone] Alvarez Zimmer MD Primary Care Provider [phone] Tamera Isabel INFORMATICS PHYSICIAN Unavailable UnavailShaniqua Lomeli LPN Unavailable Unavailable Encounter Details Date Type Department Care Team (Late st Contact Info) Description 08/17/2025 Orders Only External Location [address] [place] [address] Provider, External Social History Tobacco Use Types [...] 01/10/2025 How often do you attend [facility] or sabianism services? Patient unable to [...] in a residential (including now)? No 08/19/2025 [facility] Utilities Answer Date Recorded In the [...] drink first t kennedy in the morning (EYE-RACETRACK STEWARD) to steady your nerves or to get [...] Description 09/17/2025 9:45 AM EDT Clinical Support [facility] [place] [address] [place] [address] 09/17/2025 10:30 AM EDT Social Work [facility] [address] [place] [address] Lea Reilly, INFORMATICS PHYSICIANSteven Ville [phone] 09/17/2025 11:20 AM EDT Office Visit [facility] [place] [address] [place] [address] Octavia Herrera, PA [address] [place] [address] 09/19/2025 10:30 AM EDT Appointment [facility] [address] [place] [address] 09/19/2025 11:30 AM EDT Appointment [facility] [address] [place] [address] 09/26/2025 7:30 AM EST Appointment [facility] [address] [place] [address] 09/26/2025 8:30 AM EST Appointment [facility] [address] [place] [address] 10/01/2025 9:00 AM EST Office Visit [facility] [address] [facility] [place] [address] Lillie Pritchard MD [address] [place] [phone] 10/03/2025 12:30 PM EST Appointment [facility] [address] [place] [address] 10/03/2025 1:30 PM EST Appointment [facility] [address] [place] [address] 12/20/2025 11:00 AM EST Office [facility] Endocrinology [address] [place] [address] Miranda Hobson, MARKING CLERK [address] [facility] [address] [place] [address] documented as of this encounter Procedures Procedure [...] as of this encounter Care Teams Territory Manager General Sales Relationship Specialty Start Date End Date Alvarez Zimmer MD [address] [place] [address] PCP - General Family Medicine 12/07/24 09/02/25 Lea Fernando [address] [facility] [address] [place] [address] Cook Italian Style Food Endocrinology 08/29/24 Rachel Ray, MARKING CLERK [address] [place] [address] Nurse Practitioner Gastroenterology 09/24/24 Tamera Isabel LPN VALUE-BASED TRANSFORMATION PROGRAM Licensed Practical Nurse 05/29/25 Shaniqua Trevino LPN TCM Nurse 08/21/25 documented as of this encounter
--- OUTSIDE RECORDS SUMMARY | 2025-09-15 01:35 | XMS_ITS ---
Author Organization [facility] Address [address] [place] [address] Care Team Providers Care Building Maintenance Repairer Name Role Phone Lea Fernando Unavailable [phone] Rachel Ray [employer] Unavailable [phone] Tamera Isabel INPATIENT SERVICES DIRECTOR Unavailable UnavailShaniqua Lomeli INPATIENT SERVICES DIRECTOR Unavailable Unavailable Lillie Pritchard MD Primary Care Provider [phone] Transplant Episode Kidney Candidate [facility] [place] Evaluation began on 10/30/2024 Marked as Active on 10/30/2024 Kidney CoordinatorWilma Arana RN Fax: N/A Email: N/A Scores Score Value Updated Exceptions/Reas ons CPRA Not available EPTS (Calc) 54 09/15/2025 [place] Diagnosis Organ Primary Contributory Kidney Diabetes Mellitus - Type II Care Team Name Role Phone Fax Email Wilma Arana RN Kidney Coordinator [phone] N/A N/A Events Pre-Transplant Referred: 10/21/2024 Evaluation began: 10/30/2024 Appointments (08/16/2025 - 10/16/2025) When With Visit Type Description 09/03/2025 Brady Robles Transition of Care Shirley er 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
--- OUTSIDE RECORDS SUMMARY | 2025-09-15 01:35 | XMS_ITS | Encounter Summary ---
Author Organization [facility] Address [address] [place] [address] Care Team Providers Care Boilermaker Mechanic Name Role Phone NaseemScarLea Unavailable [phone] Rachel Ray SALES CLOSER Unavailable [phone] Taina Lyles SALES CLOSER Primary Care Provider [phone] Monique Tapia LPN Unavailable Unavailable Alvarez Zimmer MD Primary Care Provider [phone] Shaniqua Trevino MOTORCYCLE DELIVERY DRIVER Unavailable Unavailable Tamera Isabel MOTORCYCLE DELIVERY DRIVER Unavailable UnavailAlina Bedolla RN Unavailable Unavailab Monique Che LPN Unavailable Unavailable Shaniqua Trevino LPN Unavailable Unavailable Lillie Pritchard MD Primary Care Provider [phone] Encounter Details Date Type Department Care Team (Late st Contact Info) Description 10/24/2024 Ophth Exam [facility] [address] [place] [address] Serene Barragan MD [address] [place] [address] Social History Tobacco Use Types [...] and Family Not on file 10/16/2024 Attends Jainism Services Not on file 10/16 Active Member [...] drink first t kennedy in the morning (EYE-ROOM SERVER) to steady your nerves or to get [...] EDT Clinical Support [facility] [place] [address] [place] [address] 09/17/2025 10:30 AM EDT Social Work [facility] [place] [address] [place] [address] Lea Reilly, [place] [address] 09/17/2025 11:20 AM EDT Office Visit [facility] [place] [address] [place] [address] Octavia Herrera, PA [address] [place] [address] 09/19/2025 10:30 AM EDT Appointment [facility] [address] [place] [address] 09/19/2025 11:30 AM EDT Appointment [facility] [address] [place] [address] 09/26/2025 7:30 AM EST Appointment [facility] [address] [place] [address] 09/26/2025 8:30 AM EST Appointment [facility] [address] [place] [address] 10/01/2025 9:00 AM EST Office Visit [facility] [address] [place] [address], [address] [place] [address] Lillie Pritchard MD [address] [place] [address] 10/03/2025 12:30 PM EST Appointment [facility] [address] [place] [address] 10/03/2025 1:30 PM EST Appointment [facility] [address] [place] [address] 12/20/2025 11:00 AM EST Office Visit [facility] Endocrinology [address] [place] [address] Miranda Hobson, SALES CLOSER [address] [address] documented as of this encounter Visit [...] documented as of this encounter Care Teams Boilermaker Mechanic Relationship Specialty Start Date End Date Taina Lyles, SALES CLOSER [address] [place] [address] [place] [address] PCP - General 10/01/24 12/06/24 Alvarez Zimmer MD [address] [place] [address] PCP - General Family Medicine 12/07/24 09/02/25 Lillie Pritchard MD [address] [place] [address] PCP - General Family Medicine 09/03/25 Lea Fernando [address] [place] [address] Potato Picker Endocrinology 08/29/24 Rachel Ray, SALES CLOSER [address] [place] [address] Nurse Practitioner Gastroenterology 09/24/24 Monique Tapia LPN VALUE-BASED [place] [address] TCM Nurse 11/28/24 12/28/24 Shaniqua Trevino LPN TCM Nurse 01/15/25 02/14/25 Tamera Isabel LPN VALUE-BASED TRANSFORMATION PROGRAM Licensed Practical Nurse 05/29/25 Alina Lovett, RN CH-VASCULAR & INTERVENTIONAL RADIOLOGY Registered Nurse 06/26/25 06/26/25 Monique Tapia LPN VALUE-BASED [place] [address] TCM Nurse 07/10/25 08/09/25 Shaniqua Trevino LPN TCM Nurse 08/21/25 documented as of this encounter
--- OUTSIDE RECORDS SUMMARY | 2025-09-15 01:36 | XMS_ITS | Encounter Summary ---
Author Organization [facility] Address [address] [place] [address] Care Team Providers Care Napping Machine Operator Name Role Phone Lea Fernando Unavailable [phone] Rachel Ray NITRILES LAB TECHNICIAN Unavailable [phone] Alvarez Zimmer MD Primary Care Provider [phone] Tamera Isabel BREAD MOLDER Unavailable Unavailabl Monique Garay LPN Unavailable Unavailable [...] occasion? Never 06/25/2025 [facility] - Occupational [...] first t kennedy in the morning (EYE-CONSTRUCTION MANAGER) to steady your nerves or to [...] Clinical Support [facility] [place] [address] [place] [address] 09/17/2025 10:30 AM EDT Social Work [facility] [place] [address] [place] [address] Lea Reilly, [place] [address] 09/17/2025 11:20 AM EDT Office Visit [facility] [place] [address] [place] [address] Octavia Herrera, MARIA GUADALUPE [address] [place] [address] 09/19/2025 10:30 AM EDT Appointment [facility] [address] [place] [address] 09/19/2025 11:30 AM EDT Appointment [facility] [address] [place] [address] 09/26/2025 7:30 AM EST Appointment [facility] [address] [place] [address] 09/26/2025 8:30 AM EST Appointment [facility] [address] [place] [address] 10/01/2025 9:00 AM EST Office Visit [facility] [address] [facility], [address] [place] [address] Lillie Pritchard MD [address] [place] [address] 10/03/2025 12:30 PM EST Appointment [facility] [address] [place] [address] 10/03/2025 1:30 PM EST Appointment [facility] [address] [place] [address] 12/20/2025 11:00 AM EST Office Visit [facility] Endocrinology [address] [place] [address] Miranda Hobson P, NITRILES LAB TECHNICIAN [address] [facility] [address] [place] [address] documented as of this encounter Visit Diagnoses [...] documented as of this encounter Care Teams Napping Machine Operator Relationship Specialty Start Date End Date Alvarez Zimmer MD [address] [place] [address] PCP - General Family Medicine 12/07/24 09/02/25 Lea Fernando [address] [facility] [address] [place] [address] Card Checker Endocrinology 08/29/24 Rachel Ray APRN [address] [facility] [address] [place] [address] Nurse Practitioner Gastroenterology 09/24/24 Tamera Isabel LPN VALUE-BASED TRANSFORMATION PROGRAM Licensed Practical Nurse 05/29/25 Monique Tapia LPN VALUE-[place]ED [place] [address] TCM Nurse 07/10/25 08/09/25 documented as of this encounter
--- OUTSIDE RECORDS SUMMARY | 2025-09-15 01:36 | XMS_ITS | Encounter Summary ---
Author Organization [facility] Address [address] [place] [address] Care Team Providers Care Emd Teacher Name Role Phone Lea Fernando Unavailable [phone] Rachel Ray FINANCIAL RETIREMENT PLAN SPECIALIST Unavailable [phone] Alvarez Zimmer MD Primary Care Provider [phone] Tamera Isabel SEAM RUBBER Unavailable Unavailabl Monique Garay LPN Unavailable Unavailable [...] you attend chur ch or mandaen services? Patient unable to answer [...] drinks on one occasion? Never 06/25/2025 [facility] of Occupat [...] any time in the past 12 m [facility], were you homeless or living in [...] drink first t kennedy in the morning (EYE-PIN MAKER) to steady your nerves or to [...] AM EDT Clinical Support [facility] [place] [address] [place] [address] 09/17/2025 10:30 AM EDT Social Work [facility] [place] [address] [place] [address] Lea Reilly, [place] [address] 09/17/2025 11:20 AM EDT Office Visit [facility] [place] [address] [place] [address] Octavia Herrera, MARIA GUADALUPE [address] [place] [address] 09/19/2025 10:30 AM EDT Appointment [facility] [address] [place] [address] 09/19/2025 11:30 AM EDT Appointment [facility] [address] [place] [address] 09/26/2025 7:30 AM EST Appointment [facility] [address] [place] [address] 09/26/2025 8:30 AM EST Appointment [facility] [address] [place] [address] 10/01/2025 9:00 AM EST Office Visit [facility] [address] [facility], [address] [place] [address] Lillie Pritchard MD [address] [place] [address] 10/03/2025 12:30 PM EST Appointment [facility] [address] [place] [address] 10/03/2025 1:30 PM EST Appointment [facility] [address] [place] [address] 12/20/2025 11:00 AM EST Office Visit [facility] Endocrinology [address] [place] [address] Miranda Hobson P, FINANCIAL RETIREMENT PLAN SPECIALIST [address] [facility] [address] [place] [address] documented as of this encounter Visit Diagnoses [...] documented as of this encounter Care Teams Emd Teacher Relationship Specialty Start Date End Date Alvarez Zimmer MD [address] [place] [address] PCP - General Family Medicine 12/07/24 09/02/25 Lea Fernando [address] [facility] [address] [place] [address] Tile Designer Endocrinology 08/29/24 Rachel Ray APRN [address] [facility] [address] [place] [address] Nurse Practitioner Gastroenterology 09/24/24 Tamera Isabel LPN VALUE-BASED TRANSFORMATION PROGRAM Licensed Practical Nurse 05/29/25 Monique Tapia LPN VALUE-BASED [place] [address] TCM Nurse 07/10/25 08/09/25 documented as of this encounter
--- OUTSIDE RECORDS SUMMARY | 2025-09-15 01:36 | XMS_ITS | Encounter Summary ---
Author Organization [facility] Address [address] [place] [address] Care Team Providers Care Card Filer Name Role Phone Lea Fernando Unavailable [phone] Rachel Ray TRAINING AND DEVELOPMENT DIRECTOR Unavailable [phone] Alvarez Zimmer MD Primary Care Provider [phone] Tamera Isabel HOUSE OFFICER Unavailable Unavailabl Monique Garay LPN Unavailable Unavailable [...] time in the past 12 m [facility], were you homeless or living [...] drink first t kennedy in the morning (EYE-BOTTOM SANDER) to steady your nerves or to get [...] Support [facility] [place] [address] [place] [address] 09/17/2025 10:30 AM EDT Social Work [facility] [place] [address] [place] [address] Lea Reilly, [place] [address] 09/17/2025 11:20 AM EDT Office Visit [facility] [place] [address] [place] [address] Octavia Herrera, MARIA GUADALUPE [address] [place] [address] 09/19/2025 10:30 AM EDT Appointment [facility] [address] [place] [address] 09/19/2025 11:30 AM EDT Appointment [facility] [address] [place] [address] 09/26/2025 7:30 AM EST Appointment [facility] [address] [place] [address] 09/26/2025 8:30 AM EST Appointment [facility] [address] [place] [address] 10/01/2025 9:00 AM EST Office Visit [facility] [address] [facility], [address] [place] [address] Lillie Pritchard MD [address] [place] [address] 10/03/2025 12:30 PM EST Appointment [facility] [address] [place] [address] 10/03/2025 1:30 PM EST Appointment [facility] [address] [place] [address] 12/20/2025 11:00 AM EST Office Visit [facility] Endocrinology [address] [place] [address] Miranda Hobson P, TRAINING AND DEVELOPMENT DIRECTOR [address] [facility] [address] [place] [address] documented as of this encounter Visit Diagnoses [...] documented as of this encounter Care Teams Card Filer Relationship Specialty Start Date End Date Alvarez Zimmer MD [address] [place] [address] PCP - General Family Medicine 12/07/24 09/02/25 Lea Fernando [address] [facility] [address] [place] [address] Continuous Process Coffee Roaster Endocrinology 08/29/24 Rachel Ray APRN [address] [facility] [address] [place] [address] Nurse Practitioner Gastroenterology 09/24/24 Tamera Isabel LPN VALUE-BASED TRANSFORMATION PROGRAM Licensed Practical Nurse 05/29/25 Monique Tapia LPN VALUE-BASED [place] [address] TCM Nurse 07/10/25 08/09/25 documented as of this encounter
--- OUTSIDE RECORDS SUMMARY | 2025-09-15 01:36 | XMS_ITS | Encounter Summary ---
Author Organization [facility] Address [address] [place] [address] Care Team Providers Care Stone Mason Name Role Phone Lea Fernando Unavailable [phone] Rachel Ray NATURAL RESOURCE MANAGER Unavailable [phone] Alvarez Zimmer MD Primary Care Provider [phone] Tamera Isabel CAN PILER Unavailable Unavailabl Monique Garay CAN PILER Unavailable Unavailable Reason for Visit * Reason Comments TCM Encounter Details Date Type Department Care Team (Late st Contact Info) Description 07/19/2025 Patient Outreach [facility] [address] [facility], [address] [place] [address] Jeaneth Oscar LPN TCM Social [...] often do you attend [facility] or holiness services? Patient unable to answer 01/10/2025 Do you belong to any clubs o r organizations such as mormon groups, [employer], [employer] or athletic groups, or school groups? Patient [...] more drinks on one occasion? Never 06/25/2025 [employer] - Occupational Stress Questionnaire Answer Date [...] drink first t kennedy in the morning (EYE-DRAFTER (CAD) ELECTRICAL) to steady your nerves or to get [...] see if she was still in the [facility] and she stated yes, [...] Description 09/17/2025 9:45 AM EDT Clinical Support [facility] [address] [place] [address] 09/17/2025 10:30 AM EDT Social Work [facility] [address] [place] [address] Lea Reilly, [place] [address] 09/17/2025 11:20 AM EDT Office Visit [facility] [address] [place] [address] Octavia Herrera, PA [address] [place] [address] 09/19/2025 10:30 AM EDT Appointment [facility] Inter[facility] [address] [place] [address] 09/19/2025 11:30 AM EDT Appointment [facility] [address] [place] [address] 09/26/2025 7:30 AM EST Appointment [facility] [address] [place] [address] 09/26/2025 8:30 AM EST Appointment [facility] [address] [place] [address] 10/01/2025 9:00 AM EST Office Visit [facility] [address] , [address] [place] [address] Lillie Pritchard MD [address] [place] [address] 10/03/2025 12:30 PM EST Appointment [facility] [address] [place] [address] 10/03/2025 1:30 PM EST Appointment [facility] [address] [place] [address] 12/20/2025 11:00 AM EST Office Visit [facility] [address] [place] [address] Miranda Hobson, NATURAL RESOURCE MANAGER [address] [facility] 125 [place] [address] documented as of this encounter Visit Diagnoses [...] documented as of this encounter Care Teams Stone Mason Relationship Specialty Start Date End Date Alvarez Zimmer MD [address] [place] [address] PCP - General Family Medicine 12/07/24 09/02/25 Lea Fernando [address] [facility] 125 [place] [address] Plumber'S Assistant Endocrinology 08/29/24 Rachel Ray, NATURAL RESOURCE MANAGER [address] [place] [address] Nurse Practitioner Gastroenterology 09/24/24 Tamera Isabel LPN VALUE-BASED TRANSFORMATION PROGRAM Licensed Practical Nurse 05/29/25 Monique Tapia LPN VALUE-BASED [place] [address] TCM Nurse 07/10/25 08/09/25 documented as of this encounter
--- OUTSIDE RECORDS SUMMARY | 2025-09-15 01:36 | XMS_ITS | Encounter Summary ---
Author Organization [facility] Address [address] [place] [address] Care Team Providers Care Regional Program Manager Name Role Phone Lea Fernando Unavailable [phone] Rachel Ray LEADING FIREFIGHTER Unavailable [phone] Alvarez Zimmer MD Primary Care Provider [phone] Tamera Isabel MATERIAL REQUIREMENTS WORKER Unavailable UnavailAlina Bedolla RN Unavailable Unavailab Monique Che MATERIAL REQUIREMENTS WORKER Unavailable Unavailable Shaniqua Trevino MATERIAL REQUIREMENTS WORKER Unavailable Unavailable Lillie Pritchard MD Primary Care Provider [phone] Reason for Visit * Reason Onset Date Comments Med Refill 05/21/2025 Encounter Details Date Type Department Care Team (Late st Contact Info) Description 05/21/2025 Refill [facility] [address] [place] [address] Alvarez Zimmer MD [address] [place] [address] Social History Tobacco Use Types [...] do you attend [facility] or synagogue services? Patient unable to [...] Recorded Patient Health Questionnaire-2 Score 1 05/07/2025 [facility] of Occupat ional Health [...] drink first t kennedy in the morning (EYE-HOLLOW CORE DOOR FRAME ASSEMBLER) to steady your nerves or to get rid of a hangover? 0 10/22/2024 CAGE Questionnaire Score 0 024 Utilities Answer Date Recorded In the past 12 months has [employer] electric, gas, oil, or water company threatened [...] Description 09/17/2025 9:45 AM EDT Clinical Support [facility] [address] [place] [address] 09/17/2025 10:30 AM EDT Social Work [facility] [address] [place] [address] Lea Reilly, [place] [phone] 09/17/2025 11:20 AM EDT Office Visit [facility] [place] [address] [place] [address] Octavia Herrera, PA [address] [place] [address] 09/19/2025 10:30 AM EDT Appointment [facility] [address] [place] [address] 09/19/2025 11:30 AM EDT Appointment [facility] [address] [place] [address] 09/26/2025 7:30 AM EST Appointment [facility] [address] [place] [address] 09/26/2025 8:30 AM EST Appointment [facility] [address] [place] [address] 10/01/2025 9:00 AM EST Office Visit [facility] [address] [place] [address] Lillie Pritchard MD [address] [place] [address] 10/03/2025 12:30 PM EST Appointment [facility] [address] [place] [address] 10/03/2025 1:30 PM EST Appointment [facility] [address] [place] [address] 12/20/2025 11:00 AM EST Office Visit [facility] Endocrinology [address] [place] [address] Miranda Hobson, LEADING FIREFIGHTER [address] [place] [address] documented as of this encounter Visit Diagnoses [...] documented as of this encounter Care Teams Regional Program Manager Relationship Specialty Start Date End Date Alvarez Zimmer MD [address] [place] [address] PCP - General Family Medicine 12/07/24 09/02/25 Lillie Pritchard MD [address] [place] [id number] PCP - General Family Medicine 09/03/25 Lea Fernando [address] [facility] 125 [place] [address] Specialty Transformer Assembler Endocrinology 08/29/24 Rachel Ray, LEADING FIREFIGHTER [address] [place] [address] Nurse Practitioner Gastroenterology 09/24/24 Tamera Isabel LPN VALUE-BASED TRANSFORMATION PROGRAM Licensed Practical Nurse 05/29/25 Alina Lovett, RN CH-VASCULAR & INTERVENTIONAL RADIOLOGY Registered Nurse 06/26/25 06/26/25 Monique Tapia LPN VALUE-BASED [place] [address] TCM Nurse 07/10/25 08/09/25 Shaniqua Trevino LPN TCM Nurse 08/21/25 documented as of this encounter
--- OUTSIDE RECORDS SUMMARY | 2025-09-15 01:36 | XMS_ITS | Encounter Summary ---
Author Organization [facility] Address [address] [place] [address] Care Team Providers Care Floor Mechanic Name Role Phone Lea Fernando Unavailable [phone] Rachel Ray CLIENT STRATEGIST Unavailable [phone] Alvarez Zimmer MD Primary Care Provider [phone] Tamera Isabel AUTOMOTIVE HARDWARE ENGINEER Unavailable UnavailAlina Bedolla RN Unavailable Unavailab Monique Che AUTOMOTIVE HARDWARE ENGINEER Unavailable Unavailable Shaniqua Trevino AUTOMOTIVE HARDWARE ENGINEER Unavailable Unavailable Lillie Pritchard MD Primary Care Provider [phone] Reason for Visit * Reason Onset Date Comments Med Refill 05/21/2025 Encounter Details Date Type Department Care Team (Late st Contact Info) Description 05/21/2025 Refill [facility] [address] [facility], [address] [place] [address] Ar Dominique MD [address] [place] [address] Chronic kidney disease, stage 3b [...] attend [facility] or caodaism services? Patient unable to [...] Recorded Patient Health Questionnaire-2 Score 1 05/07/2025 [facility] [place] of Occupat ional Health - Occupational Stress [...] drink first t kennedy in the morning (EYE-VOCAL MUSIC TEACHER) to steady your nerves or to get rid of a hangover? 0 10/22/2024 CAGE Questionnaire Score 0 024 Utilities Answer Date Recorded In the past 12 months has th [employer], gas, oil, or water company threatened to [...] Clinical Support [facility] [place] [address] [place] [address] 09/17/2025 10:30 AM EDT Social Work [facility] [address] [place] [address] Lea Reilly, BUSINESS DIVISION CHAIR[place] [id number] 09/17/2025 11:20 AM EDT Office Visit [facility] [place] [address] [place] [address] Octavia Herrera, PA [address] [place] [address] 09/19/2025 10:30 AM EDT Appointment [facility] [address] [place] [address] 09/19/2025 11:30 AM EDT Appointment [facility] [address] [place] [address] 09/26/2025 7:30 AM EST Appointment [facility] [address] [place] [address] 09/26/2025 8:30 AM EST Appointment [facility] [address] [place] [address] 10/01/2025 9:00 AM EST Office Visit [facility] [address] [facility], [address] [place] [address] Lillie Pritchard MD [address] [place] [address] 10/03/2025 12:30 PM EST Appointment [facility] [address] [place] [address] 10/03/2025 1:30 PM EST Appointment [facility] [address] [place] [address] 12/20/2025 11:00 AM EST Office Visit [facility] Endocrinology [address] [place] [address] Miranda Hobson, CLIENT STRATEGIST [address] [facility] [address] [place] [address] documented as of this encounter Visit Diagnoses [...] documented as of this encounter Care Teams Floor Mechanic Relationship Specialty Start Date End Date Alvarez Zimmer MD [address] [place] [phone] PCP - General Family Medicine 12/07/24 09/02/25 Lillie Pritchard MD [address] [place] [address] PCP - General Family Medicine 09/03/25 Lea Fernando [address] [facility] [address] [place] [address] Repair Weaver Endocrinology 08/29/24 Rachel Ray, CLIENT STRATEGIST [address] [place] [address] Nurse Practitioner Gastroenterology 09/24/24 Tamera Isabel LPN VALUE-BASED TRANSFORMATION PROGRAM Licensed Practical Nurse 05/29/25 Alina Lovett, RN CH-VASCULAR & INTERVENTIONAL RADIOLOGY Registered Nurse 06/26/25 06/26/25 Monique Tapia LPN VALUE-[place] [address] TCM Nurse 07/10/25 08/09/25 Shaniqua Trevino LPN TCM Nurse 08/21/25 documented as of this encounter
--- OUTSIDE RECORDS SUMMARY | 2025-09-15 01:36 | XMS_ITS | Encounter Summary ---
Author Organization [facility] Address [address] [place] [address] Care Team Providers Care Sap Enterprise Portal Consultant Name Role Phone Lea Fernando Unavailable [phone] Rachel Ray HEAD BAKER Unavailable [phone] Alvarez Zimmer MD Primary Care Provider [phone] Tamera Isabel MANAGER SUMMER Unavailable UnavailAlina Bedolla RN Unavailable Unavailab Monique Che MANAGER SUMMER Unavailable Unavailable Reason for Visit * Reason Onset Date Comments HCN Clinical Concern/Question 06/21/2025 Encounter Details Date Type Department Care Team (Late st Contact Info) Description 06/21/2025 Telephone [facility] Medicine [address] [place] [address] Alvarez Zimmer MD [address] [place] [address] HCN Clinical Concern/Question Social History [...] week 01/10/2025 How often do you attend [facility] or christian services? Patient unable to answer 01/10/2025 Do you belong to any clubs o r organizations such as holiness groups, [employer], fraternal or athletic groups, or school groups? [...] often do you attend [facility] ch or christian services? Never 05/29/2025 Do [...] drinks on one occasion? Never 06/25/2025 [facility] [place] of Occupat ional Health - Occupational Stress [...] drink first t kennedy in the morning (EYE-CRUSHER ASSEMBLER) to steady your nerves or to [...] home palliative care. Best contact number: Other: [phone] Optimal time of day to reach caller: ANYTIME Additional comments/information from caller: None Note: Please do not reply to this message. Follow-up communication and further actions as a result of this message need to be communicated with the patient directly, if the patient is not active onMyChart. If the patient is active on MyChart, they will receive notification of the communication/outcome via Outerstufft. documented in this encounter Plan of Treatment Upcoming Encounters Date Type Department Care Team (Late st Contact Info) Description 09/17/2025 9:45 AM EDT Clinical Support [facility] [place] [address] [place] [address] 09/17/2025 10:30 AM EDT Social Work [facility] [place] [address] [place] [address] Lea Reilly, [place] [id number] 09/17/2025 11:20 AM EDT Office Visit [facility] Trans[facility] Center [address] [place] [address] Octavia Herrera, PA [address] [place] [address] 09/19/2025 10:30 AM EDT Appointment [facility] [address] [place] [address] 09/19/2025 11:30 AM EDT Appointment [facility] [address] [place] [address] 09/26/2025 7:30 AM EST Appointment [facility] [address] [place] [address] 09/26/2025 8:30 AM EST Appointment [facility] [address] [place] [address] 10/01/2025 9:00 AM EST Office Visit [facility] [address] , [address] [place] [address] Lillie Pritchard MD [address] [place], [place] [phone] 10/03/2025 12:30 PM EST Appointment [facility] [address] [place] [address] 10/03/2025 1:30 PM EST Appointment [facility] [address] [place] [address] 12/20/2025 11:00 AM EST Office Visit [facility] Endocrinology [address] [place] [address] Miranda Hobson P, HEAD BAKER [address] [place] [address] documented as of this encounter [...] documented as of this encounter Care Teams Sap Enterprise Portal Consultant Relationship Specialty Start Date End Date Alvarez Zimmer MD [address] [place] [address] PCP - General Family Medicine 12/07/24 09/02/25 Lea Fernando [address] [place] [address] Load Dispatcher Endocrinology 08/29/24 Rachel Ray, HEAD BAKER [address] [place] [address] Nurse Practitioner Gastroenterology 09/24/24 Tamera Isabel LPN VALUE-BASED TRANSFORMATION PROGRAM Licensed Practical Nurse 05/29/25 Alina Lovett, RN CH-VASCULAR & INTERVENTIONAL RADIOLOGY Registered Nurse 06/26/25 06/26/25 Monique Tapia LPN VALUE-[place] [address] TCM Nurse 07/10/25 08/09/25 documented as of this encounter
--- OUTSIDE RECORDS SUMMARY | 2025-09-15 01:36 | XMS_ITS | Encounter Summary ---
Author Organization [facility] Address [address] [place] [address] Care Team Providers Care Master Motorcycle Technician Name Role Phone Lea Fernando Unavailable [phone] Rachel Ray ORNAMENTAL IRONWORKER HELPER Unavailable [phone] Alvarez Zimmer MD Primary Care Provider [phone] Tamera Isabel LEAD PHP DEVELOPER Unavailable Unavailabl Monique Garay LPN Unavailable [...] you attend chur ch or moravian services? Never 05/29/2025 Do you [...] drinks on one occasion? Never 06/25/2025 [facility] of Occupat ional Health - [...] first t kennedy in the morning (EYE-BUSINESS MANAGEMENT MANAGER) to steady your nerves or to [...] Description 09/17/2025 9:45 AM EDT Clinical Support [facility] [place] [address] [place] [address] 09/17/2025 10:30 AM EDT Social Work [facility] [place] [address] [place] [address] Lea Reilly, [place] [address] 09/17/2025 11:20 AM EDT Office Visit [facility] [place] [address] [place] [address] Octavia Herrera, MARIA GUADALUPE [address] [place] [address] 09/19/2025 10:30 AM EDT Appointment [facility] [address] [place] [address] 09/19/2025 11:30 AM EDT Appointment [facility] [address] [place] [address] 09/26/2025 7:30 AM EST Appointment [facility] [address] [place] [address] 09/26/2025 8:30 AM EST Appointment [facility] [address] [place] [address] 10/01/2025 9:00 AM EST Office Visit [facility] [address] [facility], [address] [place] [address] Lillie Pritchard MD [address] [place] [address] 10/03/2025 12:30 PM EST Appointment [facility] [address] [place] [address] 10/03/2025 1:30 PM EST Appointment [facility] [address] [place] [address] 12/20/2025 11:00 AM EST Office Visit [facility] Endocrinology [address] [place] [address] Miranda Hobson P, ORNAMENTAL IRONWORKER HELPER [address] [facility] [address] [place] [address] documented as of this encounter Visit Diagnoses [...] documented as of this encounter Care Teams Master Motorcycle Technician Relationship Specialty Start Date End Date Alvarez Zimmer MD [address] [place] [address] PCP - General Family Medicine 12/07/24 09/02/25 Lea Fernando [address] [facility] [address] [place] [address] Truck Shop Mechanic Endocrinology 08/29/24 Rachel Ray APRN [address] [facility] [address] [place] [address] Nurse Practitioner Gastroenterology 09/24/24 Tamera Isabel LPN VALUE-BASED TRANSFORMATION PROGRAM Licensed Practical Nurse 05/29/25 Monique Tapia LPN VALUE-BASED [place] [address] TCM Nurse 07/10/25 08/09/25 documented as of this encounter
--- OUTSIDE RECORDS SUMMARY | 2025-09-15 01:36 | XMS_ITS | Encounter Summary ---
Author Organization [facility] Address [address] [place] [address] Care Team Providers Care Style Advisor Name Role Phone Lea Fernando Unavailable [phone] Rachel Ray DRUG AND ALCOHOL TREATMENT SPECIALIST Unavailable [phone] Alvarez Zimmer MD Primary Care Provider [phone] Tamera Isabel SENIOR JAVA ARCHITECT Unavailable UnavailAlina Bedolla RN Unavailable Unavailab Monique Che SENIOR JAVA ARCHITECT Unavailable Unavailable Encounter Details Date Type Department Care Team (Late st Contact Info) Description 06/20/2025 Telephone [facility] Medicine [address] [place] [address] Alvarez Zimmer MD [address] [place] [address] Social History Tobacco Use Types [...] o r organizations such as rastafari groups, [employer], Bread or athletic groups, or school groups? Patient [...] How often do you attend [facility] ch or islam services? Never 05/29/2025 Do you belong to any clubs o r organizations such as rastafari groups, [employer], Bread or athletic groups, or school groups? No [...] more drinks on one occasion? Never 06/25/2025 [facility] [place] of Occupat ional Health - Occupational Stress [...] drink first t kennedy in the morning (EYE-UNLOAD ASSOCIATE) to steady your nerves or to get rid of a hangover? 0 06/25/2025 CAGE Questionnaire Score 0 025 Utilities Answer Date Recorded In the past 12 months has th [employer], gas, oil, or water company threatened to [...] plus. I did search an there is [facility] so I have faxed a [...] go to a facility. Best contact number: [phone] (mobile) Optimal time of day to reach [...] Support [facility] [place] [address] [place] [address] 09/17/2025 10:30 AM EDT Social Work [facility] [place] [address] [facility] [address] [place] [address] Lea Reilly, [place] [address] 09/17/2025 11:20 AM EDT Office Visit [facility] [place] [address] [facility] [address] [place] [address] Octavia Herrera, PA [address] [facility] [address] [place] [address] 09/19/2025 10:30 AM EDT Appointment [facility] [address] [place] [address] 09/19/2025 11:30 AM EDT Appointment [facility] [address] [place] [address] 09/26/2025 7:30 AM EST Appointment [facility] [address] [place] [address] 09/26/2025 8:30 AM EST Appointment [facility] [address] [place] [address] 10/01/2025 9:00 AM EST Office Visit [place] [address] [facility], [address] [place] [address] Lillie Pritchard MD [address] [place] [id number] 10/03/2025 12:30 PM EST Appointment [facility] [address] [place] [address] 10/03/2025 1:30 PM EST Appointment [facility] [address] [place] [address] 12/20/2025 11:00 AM EST Office Visit [facility] Endocrinology [address] [place] [address] Miranda Hobson, DRUG AND ALCOHOL TREATMENT SPECIALIST [address] [facility] [address] [place] [address] documented as of this encounter [...] documented as of this encounter Care Teams Style Advisor Relationship Specialty Start Date End Date Alvarez Zimmer MD [address] [place] [address] PCP - General Family Medicine 12/07/24 09/02/25 Lea Fernando [address] [facility] [address] [place] [address] Manager Care Endocrinology 08/29/24 Rachel Ray, DRUG AND ALCOHOL TREATMENT SPECIALIST [address] [facility] [address] [place] [address] Nurse Practitioner Gastroenterology 09/24/24 Tamera Isabel, SENIOR JAVA ARCHITECT VALUE-BASED TRANSFORMATION PROGRAM Licensed Practical Nurse 05/29/25 Alina Lovett, RN CH-VASCULAR & INTERVENTIONAL RADIOLOGY Registered Nurse 06/26/25 06/26/25 Monique Tapia, MG VALUE-[place] [address] TCM Nurse 07/10/25 08/09/25 documented as of this encounter
--- OUTSIDE RECORDS SUMMARY | 2025-09-15 01:36 | XMS_ITS | Encounter Summary ---
Author Organization [facility] Address [address] [place] [address] Care Team Providers Care Industrial Sales Engineer Name Role Phone Lea Fernando Unavailable [phone] Rachel Ray DIRECTOR OF ENTERPRISE STRATEGY Unavailable [phone] Alvarez Zimmer MD Primary Care Provider [phone] Tamera Isabel VETERINARY MILK SPECIALIST Unavailable Unavailabl Monique Garay LPN Unavailable [...] on one occasion? Never 06/25/2025 [facility] of Occupat ional Health [...] drink first t kennedy in the morning (EYE-BEAUTY SHOP MANAGER) to steady your nerves or to [...] Suicidal Behavior (Lifetime) No 9:58 AM EDT [place] documented as of this encounter Plan of Treatment Upcoming Encounters Date Type Department Care Team (Late st Contact Info) Description 09/17/2025 9:45 AM EDT Clinical Support [facility] Trans[facility] Center [address] [place] [address] 09/17/2025 10:30 AM EDT Social Work [facility] [place] [address] [place] [address] Lea Reilly, [place] [address] 09/17/2025 11:20 AM EDT Office Visit [facility] Center [address] [place] [address] Octavia Herrera, PA [address] [place] [address] 09/19/2025 10:30 AM EDT Appointment [facility] Inter[facility] Radiology [address] [place] [address] 09/19/2025 11:30 AM EDT Appointment [facility] [address] [place] [address] 09/26/2025 7:30 AM EST Appointment [facility] [address] [place] [address] 09/26/2025 8:30 AM EST Appointment [facility] [address] [place] [address] 10/01/2025 9:00 AM EST Office Visit [facility] [address] [place] [address] Lillie Pritchard MD [address] [place], [place] [address] 10/03/2025 12:30 PM EST Appointment [facility] [address] [place] [address] 10/03/2025 1:30 PM EST Appointment [facility] [address] [place] [address] 12/20/2025 11:00 AM EST Office Visit [facility] Endocrinology [address] [place] [address] Miranda Hobson, DIRECTOR OF ENTERPRISE STRATEGY [address] [place] [address] documented as of this encounter Visit Diagnoses [...] as of this encounter Care Teams Industrial Sales Engineer Relationship Specialty Start Date End Date Alvarez Zimmer MD [address] [place] [address] PCP - General Family Medicine 12/07/24 09/02/25 Lea Fernando [address] [facility] 125 [place] [address] Ventilating Engineer Endocrinology 08/29/24 Rachel Ray, DIRECTOR OF ENTERPRISE STRATEGY [address] [facility] [address] [place] [address] Nurse Practitioner Gastroenterology 09/24/24 Tamera Isabel LPN VALUE-BASED TRANSFORMATION PROGRAM Licensed Practical Nurse 05/29/25 Monique Tapia LPN VALUE-[place] [address] TCM Nurse 07/10/25 08/09/25 documented as of this encounter
--- OUTSIDE RECORDS SUMMARY | 2025-09-15 01:36 | XMS_ITS | Encounter Summary ---
Author Organization [facility] Address [address] [place] [address] Care Team Providers Care Manufacturing Cost Estimator Name Role Phone Lea Fernando Unavailable [phone] Rachel Ray CORPORATE TRAVEL AGENT Unavailable [phone] Alvarez Zimmer MD Primary Care Provider [phone] Tamera Isabel AUTO BODY CUSTOMIZER Unavailable UnavailAlina Bedolla RN Unavailable Unavailab Monique Che AUTO BODY CUSTOMIZER Unavailable Unavailable Encounter Details Date Type Department Care Team (Late st Contact Info) Description 06/17/2025 Telephone [facility] Endocrinology [address] [place] [address] Deysi Antonio MD [address] [facility] 125 [place] [address] Social History Tobacco Use Types [...] o r organizations such as religion groups, [employer], [employer] or athletic groups, or school groups? Patient [...] r organizations such as religion groups, unions, [employer] or athletic groups, or school groups? No [...] more drinks on one occasion? Never 06/25/2025 [facility] of Occupat ional Health - Occupational Stress [...] drink first t kennedy in the morning (EYE-SURGERY CENTER ADMINISTRATOR) to steady your nerves or to get rid of a hangover? 0 06/25/2025 CAGE Questionnaire Score 0 025 Utilities Answer Date Recorded In the past 12 months has th [employer], gas, oil, or water company threatened to [...] taking 52 units of Lantus daily, and Mukbdar98 units for regular meals, and 12 units [...] levels, especially at night? Best contact number: [phone] Optimal time of day to reach caller: [...] AM EDT Clinical Support [facility] [place] [address] [place] [address] 09/17/2025 10:30 AM EDT Social Work [facility] [place] [address] [place] [address] [place] [address] 09/17/2025 11:20 AM EDT Office Visit [facility] [place] [address] [place] [address] Octavia Herrera PA [address] [facility] [address] [place] [address] 09/19/2025 10:30 AM EDT Appointment [facility] [address] [place] [address] 09/19/2025 11:30 AM EDT Appointment [facility] [address] [place] [address] 09/26/2025 7:30 AM EST Appointment [facility] [address] [place] [address] 09/26/2025 8:30 AM EST Appointment [facility] [address] [place] [address] [phone] 10/01/2025 9:00 AM EST Office Visit [facility] [address] [facility], [address] [place] [address] Lillie Pritchard MD [address] [place] [address] 10/03/2025 12:30 PM EST Appointment [facility] [address] [place] [address] 10/03/2025 1:30 PM EST Appointment [facility] [address] [place] [address] 12/20/2025 11:00 AM EST Office Visit [facility] Endocrinology [address] [place] [address] Miranda Hobson, CORPORATE TRAVEL AGENT [address] [facility] [address] [place] [address] documented as of this encounter Visit Diagnoses [...] documented as of this encounter Care Teams Manufacturing Cost Estimator Relationship Specialty Start Date End Date Alvarez Zimmer MD [address] [place] [address] PCP - General Family Medicine 12/07/24 09/02/25 Lea Fernando [address] [place] [address] Customer Service Voice Endocrinology 08/29/24 Rachel Ray APRN [address] [place] [address] Nurse Practitioner Gastroenterology 09/24/24 Tamera Isabel LPN VALUE-BASED TRANSFORMATION PROGRAM Licensed Practical Nurse 05/29/25 Alina Lovett, RN CH-VASCULAR & INTERVENTIONAL RADIOLOGY Registered Nurse 06/26/25 06/26/25 Monique Tapia LPN VALUE-[place] [address] TCM Nurse 07/10/25 08/09/25 documented as of this encounter
--- OUTSIDE RECORDS SUMMARY | 2025-09-15 01:36 | XMS_ITS | Encounter Summary ---
Author Organization [facility] Address [address] [place] [address] Care Team Providers Care Cardiology Physician Name Role Phone Lea Fernando Unavailable [phone] Rachel Ray SLEEPING CAR PORTER Unavailable [phone] Alvarez Zimmer MD Primary Care Provider [phone] Tamera Isabel WHITE METAL CASTER Unavailable Unavailabl Monique Garay LPN Unavailable Unavailable [...] first t kennedy in the morning (EYE-SUPERVISOR DECORATING) to steady your nerves or to get [...] AM EDT Clinical Support [facility] [address] [place] [address] 09/17/2025 10:30 AM EDT Social Work [facility] [address] [place] [address] Lea Reilly, [place] [address] 09/17/2025 11:20 AM EDT Office Visit [facility] [address] [place] [address] Octavia Herrera, MARIA GUADALUPE [address] [place] [address] 09/19/2025 10:30 AM EDT Appointment [facility] [address] [place] [address] 09/19/2025 11:30 AM EDT Appointment [facility] [address] [place] [address] 09/26/2025 7:30 AM EST Appointment [facility] [address] [place] [address] 09/26/2025 8:30 AM EST Appointment [facility] [address] [place] [address] 10/01/2025 9:00 AM EST Office Visit [facility] [address] [facility] [place] [address] Lillie Pritchard MD [address] [place] [address] 10/03/2025 12:30 PM EST Appointment [facility] [address] [place] [address] 10/03/2025 1:30 PM EST Appointment [facility] [address] [place] [address] 12/20/2025 11:00 AM EST Office Visit [facility] Endocrinology [address] [place] [address] Miranda Hobson P, SLEEPING CAR PORTER [address] [facility] [address] [place] [address] documented as of this encounter Visit Diagnoses [...] documented as of this encounter Care Teams Cardiology Physician Relationship Specialty Start Date End Date Alvarez Zimmer MD [address] [place] [id number] PCP - General Family Medicine 12/07/24 09/02/25 Lea Fernando [address] [facility] [address] [place] [address] Machine Shorthand Teacher Endocrinology 08/29/24 Rachel Ray APRN [address] [facility] [address] [place] [address] Nurse Practitioner Gastroenterology 09/24/24 Tamera Isabel LPN VALUE-BASED TRANSFORMATION PROGRAM Licensed Practical Nurse 05/29/25 Monique Tapia LPN VALUE[employer] [address] TCM Nurse 07/10/25 08/09/25 documented as of this encounter
--- OUTSIDE RECORDS SUMMARY | 2025-09-15 01:37 | XMS_ITS | Encounter Summary ---
Author Organization [facility] Address [address] [place] [address] Care Team Providers Care Service Engine Repairer Name Role Phone Wilma Howard Ambar TRAFFIC INCIDENT MANAGEMENT MANAGER Primary Care Provider [phone] Lea Fernando Unavailable [phone] Rachel Ray TRAFFIC INCIDENT MANAGEMENT MANAGER Unavailable [phone] Taina Lyles TRAFFIC INCIDENT MANAGEMENT MANAGER Primary Care Provider [phone] Monique Tapia SHAREPOINT ADMIN Unavailable Unavailable Alvarez Zimmer MD Primary Care Provider [phone] Shaniqua Trevino LPN Unavailable Unavailable Tamera Isabel SHAREPOINT ADMIN Unavailable UnavailAlina Bedolla RN Unavailable Unavailab Monique Che LPN Unavailable Unavailable Shaniqua Trevino LPN Unavailable Unavailable Lillie Pritchard MD Primary Care Provider [phone] Reason for Visit * Reason Comments Med Refill Encounter Details Date Type Department Care Team (Late st Contact Info) Description 07/28/2021 Refill Merissa Terry Endocrinology [address] [place] [address] Deysi Antonio MD [address] [place] [address] Social History Tobacco Use Types [...] Clinical Support [facility] [address] [place] [address] 09/17/2025 10:30 AM EDT Social Work [facility] [place] [address] [place] [address] Lea Reilly, [place] [id number] 09/17/2025 11:20 AM EDT Office Visit [facility] [place] [address] [facility] [address] [place] [address] Octavia Herrera, PA [address] [facility] [address] [place] [address] 09/19/2025 10:30 AM EDT Appointment [facility] [address] [place] [address] 09/19/2025 11:30 AM EDT Appointment [facility] [address] [place] [address] 09/26/2025 7:30 AM EST Appointment [facility] [address] [place] [address] 09/26/2025 8:30 AM EST Appointment [facility] [address] [place] [address] 10/01/2025 9:00 AM EST Office Visit [facility] [address] [place] [address] Lillie Pritchard MD [address] [place] [address] 10/03/2025 12:30 PM EST Appointment [facility] [address] [place] [address] 10/03/2025 1:30 PM EST Appointment [facility] [address] [place] [address] 12/20/2025 11:00 AM EST Office Visit [facility] Endocrinology [address] [place] [address] Miranda Hobson, TRAFFIC INCIDENT MANAGEMENT MANAGER [address] [facility] [address] [place] [address] documented as of this encounter [...] as of this encounter Care Teams Service Engine Repairer Relationship Specialty Start Date End Date Wilma Howard APRN [address] [place] [address] [place] [address] PCP - General 04/03/21 09/30/24 Taina Lyles APRN [address] [place] [address] [place] [address] PCP - General 10/01/24 12/06/24 Alvarez Zimmer MD [facility] [place] [address] PCP - General Family Medicine 12/07/24 09/02/25 Lillie Pritchard MD [address] [place] [address] PCP - General Family Medicine 09/03/25 Lea Fernando [address] [facility] [address] [place] [address] Crop Specialist Endocrinology 08/29/24 Rachel Ray, TRAFFIC INCIDENT MANAGEMENT MANAGER [address] [place] [address] Nurse Practitioner Gastroenterology 09/24/24 Monique Tapia LPN VALUE-BASED [place] [address] TCM Nurse 11/28/24 12/28/24 Shaniqua Trevino LPN TCM Nurse 01/15/25 02/14/25 Tamera Isabel LPN VALUE-BASED TRANSFORMATION PROGRAM Licensed Practical Nurse 05/29/25 Alina Lovett, RN [facility] Registered Nurse 06/26/25 06/26/25 Monique Tapia LPN VALUE-BASED [place] [address] TCM Nurse 07/10/25 08/09/25 Shaniqua Trevino LPN TCM Nurse 08/21/25 documented as of this encounter
[2025-09-15 02:50] LABS: Ammonia 115 umol/L (9-30)
[2025-09-15 05:27] LABS: Alanine Aminotransferase 23 U/L (12-78); Albumin Level 3.4 g/dl (3.5-5.0); Albumin/Globulin Ratio 0.8 (1.1-1.8); Alkaline Phosphatase 232 U/L (38-126); Anion Gap 13.7 mEq/L (5-15); Aspartate Amino Transferase 73 U/L (14-36); Bilirubin,Total 3.8 mg/dl (0.2-1.3); Blood Urea Nitrogen 37 mg/dl (7-17); Calcium 8.6 mg/dl (8.4-10.2); Carbon Dioxide 26 mmol/L (22.0-30.0); Chloride 99 mmol/L (98-107); Creatinine,Serum 1.50 mg/dl (0.52-1.04); Estimated Glomerular Filt Rate 35 ml/min (>60); GFR (African American) 42 ML/MIN (>60); Globulin 4.4 g/dL (1.3-3.2); Glucose 160 mg/dl (74-100); Potassium 3.7 mmoL/L (3.5-5.1); Sodium 135 mmol/L (136-145); Total Protein,Serum 7.8 g/dl (6.3-8.2)
[2025-09-15 05:34] LABS: Hematocrit 30.8 % (37.0-47.0); Hemoglobin 10.5 g/dL (12.2-16.2); Immature Granulocytes % 0.5 %; Mean Corpuscular HGB Conc 34.1 g/dL (31.8-35.4); Mean Corpuscular Hemoglobin 32.4 pg (27.0-31.2); Mean Corpuscular Volume 95.1 fl (81-99); Nucleated Red Blood Cells % 0 %; Red Blood Count 3.24 M/mm3 (4.20-5.40); Red Cell Distribution Width-SD 54.5 fL; White Blood Count 4.2 K/mm3 (4.8-10.8)
[2025-09-15 05:49] LABS: Platelet Count 46 K/mm3 (142-424)
== END 2025-09-15 23:59 | disposition home or self-care (01) ==
LOC: LAB.DROPOF 01:22
PROVIDERS: PCP Internal Medicine Adolescent Medicine; Visit Provider Internal Medicine Adolescent Medicine
DX: K72.90 Hepatic failure, unspecified without coma (principal)
CPT/HCPCS: 80053; 82140; 85025

== ENCOUNTER 2025-10-02 07:59 | Outpatient (CLI) | payer MEDICARE, MEDICAID, SELFPAY ==
--- OUTSIDE RECORDS SUMMARY | 2025-10-02 08:03 | XMS_ITS | Data Portability ---
Author Organization ID - [facility] [place] Address [address] [place] [address] Care Team Providers Care Wool Tamper Name Role Phone SHARMAINE FUNMI Primary Care Provider JAIR JAMISON Refrigeration System Installer [phone] CHANNING ANTONIO Varnish Blender Assessment Encounter Date Assessment Date Assessment LastModified by Organization Details LastModified Time 07/17/2024 07/17/2024 Evaluation and examination. Discussed podiatric pathology including treatment options with the patient at length. Not available 07/20/2024 09:27:20 Plan of Treatment Reminders Order Date Submit Date Provider Last Modified By Organization Details Last Modified Time Details Appointments None recorded. Lab CMP, serum or plasma 2023 [facility] (Lab Registration) , [address] [place] [address] [place], [address], 4 10:34:33 PT/INR 2023 [facility] (Lab Registration) , [address] [place] [address] [place], [address], 4 10:34:33 CBC w/ auto diff 2023 [facility] (Lab Registration) , [address] [place] [address] [place], [address], 4 10:34:33 afp (alpha-fet oprotein) tumor marker, serum or plasma 2023 024 [facility] (Lab Registration) , [address] [facility], [address], 4 08:23:35 CMP, serum or plasma 2023 024 [facility] (Lab Registration) , [address] [facility] [place], [address], 4 14:28:13 cell count w/ diff, body fluid 2023 024 [facility] (Lab Registration) , [address] [facility] [place], [address], 4 14:28:13 gram stain, body fluid 2023 024 [facility] (Lab Registration) , [address] [facility] [place], [address], 4 14:28:13 culture, body fluid 2023 024 [facility] (Lab Registration) , [address] [facility], [address], 4 14:28:13 cell count w/ diff, body fluid [address] [facility] (Lab Registration) , [address] [facility] [place], [address], 4 16:35:51 culture, body fluid [address] [facility] (Lab Registration) , [address] [facility] [place], [address], 4 11:54:59 gram stain, body fluid 2023 024 [facility] (Lab Registration) , [address] [facility] [place], [address], 4 14:05:44 Referral liver transplant referral 2023 024 [facility], [address] [facility], [address] [place] [address], [place], [address], 4 09:53:22 Procedures None recorded. Surgeries ultrasound guided paracentes is (SURG) 2023 024 katherinnelling Not available 13:36:56 ultrasound guided paracentes is (SURG) 2023 024 sergeying Not available 16:08:27 Imaging US, liver 2023 024 ester [facility] (Central Scheduling), [address] [place] [address] , [place], [address], 4 09:52:54 Medication Orders pantoprazo le 40 mg tablet,del ayed release 2023 024 [id number], [address] [facility] , [place], [address], 4 09:02:39 Lasix 40 mg tablet 2023 024 [facility] [id number], [address], [place], [address], 4 09:22:31 spironolac tone 100 mg tablet 2023 024 [facility] [id number], [address], [place], [address], 4 09:22:34 Patient TargetsNo targets recorded. Patient Instructions Encounter Date Encounter Id Patient Instructions Last Modified By Organization Details Last Modified Time 07/17/2024 [id number] diabetes foot health: care instructions Not available 07/17/2024 15:03:41 F/u 1 year caitlin l foot exam and order shoes Not available 07/20/2024 09:27:44 Some of the information in this note was entered by the [facility] under the direction and training of the attending physician. I have reviewed the documentation of the encounter entered by the [facility] and attest that it is accurate. M*Modal supervisor park workers software was utilized to enter some information in this note and therefore may contain voice recognition errors. Intake and other documentation entered by Jerrica Mcguire [facility]. [email or web address] Not available 07/17/2024 10:25:16 Reason for Referral Liver Transplant Referral fo r Cirrhosis of liver Referring Physician: Lan Enriquez, Gastroenterology, Encounter Date: 07/20/2024 Results Created Date Observation Date Name Description Value Unit Range Abnormal Flag Note LastModifiedBy Organization Detail LastModifiedTime 07/20/2007/20/2024 CELL COUNT body fluid count performed by: AUTOMA HEIDI COUNT Not Available [facility] (Pre-Op Clinic) [address] [place] [address] [place], [address], 07/20/2024 16:35:51 07/20/20 24 07/20/2024 CELL COUNT source ABDOMI NAL Not Available [facility] (Pre-Op Clinic) [address] [place] [address] [place], [address], 07/20/2024 16:35:51 07/20/20 24 07/20/2024 CELL COUNT color YELLOW clear Not Available [facility] (Pre-Op Clinic) [address] [place] [address] [place], [address], 07/20/2024 16:35:51 07/20/20 24 07/20/2024 CELL COUNT apperance CLEAR clear Not Available [facility] (Pre-Op Clinic) [address] [place] [address] [place], [address], 07/20/2024 16:35:51 07/20/20 24 07/20/2024 CELL COUNT viscosity NORMAL normal Not Available [facility] (Pre-Op Clinic) [address] [place] [address] [place], [address], 07/20/2024 16:35:51 07/20/20 24 07/20/2024 CELL COUNT WBC 290 /uL Not Available [facility] (Pre-Op Clinic) [address] [place] [address] [place], [address], 07/20/2024 16:35:51 07/20/20 24 07/20/2024 CELL COUNT RBC 2000 /uL Not Available [facility] (Pre-Op Clinic) [address] [place] [address] [place], [address], 07/20/2024 16:35:51 07/20/20 24 07/20/2024 CELL COUNT polynuclear 8.6 % Not Available [facility] (Pre-Op Clinic) [address] [place] [address] [place], [address], 07/20/2024 16:35:51 07/20/20 24 07/20/2024 CELL COUNT mononuclear 91.4 % ALL COUNT S PERFO RMED ON HEMAC YTOME TER ARE DONE IN [facility]. Not Available [facility] (Pre-Op Clinic) [address] [place] [address] [place], [address], 07/20/2024 16:35:51 07/20/20 24 07/20/2024 CELL COUNT note Unles s other duffy noted testi ng perfo rmed at: [facility] [address] [place] [address] Erwin osorio MD Not Available [facility] (Pre-Op Clinic) [address] [place] [address] [place], [address], 07/20/2024 16:35:51 07/20/20 24 07/20/2024 GRAM STAIN source BF Not Available [facility] (Pre-Op Clinic) [address] [place] [address] [place], [address], 07/20/2024 17:39:56 07/20/20 24 07/20/2024 GRAM STAIN organism #1 NO ORGANI SMS Not Available [facility] (Pre-Op Clinic) [address] [place] [address] [place], [address], 07/20/2024 17:39:56 07/20/20 24 07/20/2024 GRAM STAIN WBC NO WBC'S SEEN no WBC's seen Not Available [facility] (Pre-Op Clinic) [address] [place] [address] [place], [address], 07/20/2024 17:39:56 07/20/20 24 07/20/2024 GRAM STAIN gram positive QC slide PASS PASS Not Available [facility] (Pre-Op Clinic) [address] [place] [address] [place], [address], 07/20/2024 17:39:56 07/20/20 24 07/20/2024 GRAM STAIN gram negative QC slide PASS PASS Not Available [facility] (Pre-Op Clinic) [address] [place] [address] [place], [address], 07/20/2024 17:39:56 07/20/20 24 07/20/2024 GRAM STAIN note Unles s other duffy noted testi ng perfo rmed at: [facility] [address] [place] [address] Erwin osorio MD Not Available [facility] (Pre[facility]Op Clinic) [address] [place] [address] [place], [address], 07/20/2024 17:39:56 07/20/20 24 07/20/2024 CULTU RE BODY FLUID results [facility] 07-21 1153 No Growt h at 1 Day [facility] 07-22 920 No Growt h at 2 Days [facility] 07-24 545 No Growt h at 3 Days Not Available [facility] (Pre-Op Clinic) [address] [facility], [address], 07/24/2024 05:47:51 07/20/20 24 07/20/2024 CULTU RE BODY FLUID note Unles s other duffy noted testi ng perfo rmed at: [facility] [address] [place] [address] Erwin osorio MD Not Available [facility] (Pre-Op Clinic) [address] [place] [address] [place], [address], 07/24/2024 05:47:51 08/03/20 24 08/03/2024 COMP METAB OLIC PANEL sodium 138 mmol/ L 137-14 7 Not Available [facility] (Pre-Op Clinic) [address] [facility], [address], 08/03/2024 13:25:24 08/03/20 24 08/03/2024 COMP METAB OLIC PANEL potassium 4.3 mmol/ L 3.5-5. 1 Not Available [facility] (Pre-Op Clinic) [address] [facility], [address], 08/03/2024 13:25:24 08/03/20 24 08/03/2024 COMP METAB OLIC PANEL chloride 101 mmol/ L 98-110 Not Available [facility] (Pre[facility]Op [facility]) [address] [place] [address] [place], [address], 08/03/2024 13:25:24 08/03/20 24 08/03/2024 COMP METAB OLIC PANEL carbon dioxide 28 mmol/ L 21-30 Not Available [facility] (Pre[facility]Op [facility]) [address] [place] [address] [place], [address], 08/03/2024 13:25:24 08/03/20 24 08/03/2024 COMP METAB OLIC PANEL anion gap 9 mmol/ L 6-14 Not Available [facility] (Pre[facility]Op [facility]) [address] [place] [address] [place], [address], 08/03/2024 13:25:24 08/03/20 24 08/03/2024 COMP METAB OLIC PANEL glucose 322 mg/dL 70-115 high Not Available [facility] (Pre[facility]Op [facility]) [address] [place] [address] [place], [address], 08/03/2024 13:25:24 08/03/20 24 08/03/2024 COMP METAB OLIC PANEL BUN 22 mg/dL 7-17 high Not Available [facility] (Pre[facility]Op [facility]) [address] [place] [address] [place], [address], 08/03/2024 13:25:24 08/03/20 24 08/03/2024 COMP METAB OLIC PANEL creatinine 1.0 mg/dL 0.5-1. 5 Not Available [facility] (Pre[facility]Op [facility]) [address] [place] [address] [place], [address], 08/03/2024 13:25:24 08/03/20 24 08/03/2024 COMP METAB OLIC PANEL BUN/creatini ne ratio 22 ratio 10-20 high Not Available [facility] (Pre[facility]Op [facility]) [address] [place] [address] [place], [address], 08/03/2024 13:25:24 08/03/20 24 08/03/2024 COMP METAB OLIC PANEL glom filtration rate 64 mL/mi n >60- Not Available [facility] (Pre[facility]Op [facility]) [address] [place] [address] [place], [address], 08/03/2024 13:25:24 08/03/20 24 08/03/2024 COMP METAB OLIC PANEL osmolality (calculated) 303 mosmo l/kg 275-30 1 high OSMOL ALITY IS A CALCU LATIO N UTILI ZING THE SERUM /PLAS MA SODIU M, GLUCO SE AND UREA NITRO GEN (BUN) LEVEL S. FOR THE MOST ACCUR ATE RESUL T A MEASU RED SERUM OSMOL ALITY IS SUGGE STED. Not Available [facility] (Pre-Op Clinic) [address] [place] [address] [place], [address], 08/03/2024 13:25:24 08/03/20 24 08/03/2024 COMP METAB OLIC PANEL total protein 6.7 g/dL 6.2-8. 2 Not Available [facility] (Pre[facility]Op [facility]) [address] [place] [address] [place], [address], 08/03/2024 13:25:24 08/03/20 24 08/03/2024 COMP METAB OLIC PANEL albumin 2.5 g/dL 3.5-5. 0 low Not Available [facility] (Pre[facility]Op Clinic) [address] [place] [address] [place], [address], 08/03/2024 13:25:24 08/03/20 24 08/03/2024 COMP METAB OLIC PANEL calcium 8.0 mg/dL 8.5-10 .8 low Not Available [facility] (Pre[facility]Op Clinic) [address] [place] [address] [place], [address], 08/03/2024 13:25:24 08/03/20 24 08/03/2024 COMP METAB OLIC PANEL bilirubin total 3.2 mg/dL 0.2-1. 3 high Not Available [facility] (Pre[facility]Op [facility]) [address] [place] [address] [place], [address], 08/03/2024 13:25:24 08/03/20 24 08/03/2024 COMP METAB OLIC PANEL AST (SGOT) 49 IU/L 14-36 high Not Available [facility] (Pre[facility]Op [facility]) [address] [place] [address] [place], [address], 08/03/2024 13:25:24 08/03/2008/03/2024 COMP METAB OLIC PANEL ALT (SGPT) 21 IU/L 0-35 Pleas e note new refer ence inter tylor for ALT. Due to a recen t manuf actur er metho dolog y aleman e, the refer ence inter tylor for ALT is lower effec tive March 12, 2021. Not Available [facility] (Pre[facility]Op Clinic) [address] [place] [address] [place], [address], 08/03/2024 13:25:24 08/03/2008/03/2024 COMP METAB OLIC PANEL alk phosphatase 196 IU/L 38-126 high Not Available [facility] (Pre-Op Clinic) [address] [place] [address] [place], [address], 08/03/2024 13:25:24 08/03/20 24 08/03/2024 COMP METAB OLIC PANEL note Unles s other duffy noted testi ng perfo rmed at: [facility] [address] [facility] [place] [id number] Erwin osorio MD Not Available [facility] (Pre-Op [facility]) [address] [facility], [address], 08/03/2024 13:25:24 08/08/20 24 08/08/2024 CELL COUNT body fluid count performed by: AUTOMA HEIDI COUNT Not Available [facility] (Pre-Op Clinic) [address] [facility], [address], 08/08/2024 16:18:59 08/08/20 24 08/08/2024 CELL COUNT source PERITO ROSMERY Not Available [facility] (Pre[facility]Op Clinic) [address] [facility], [address], 08/08/2024 16:18:59 08/08/20 24 08/08/2024 CELL COUNT color YELLOW clear Not Available [facility] ([facility]Op [facility]) [address] [place] [address] [place], [address], 08/08/2024 16:18:59 08/08/20 24 08/08/2024 CELL COUNT apperance CLOUDY clear Not Available [facility] (Pre[facility]Op Clinic) [address] [place] [address] [place], [address], 08/08/2024 16:18:59 08/08/20 24 08/08/2024 CELL COUNT viscosity NORMAL normal Not Available [facility] (Pre[facility]Op [facility]) [address] [place] [address] [place], [address], 08/08/2024 16:18:59 08/08/20 24 08/08/2024 CELL COUNT WBC 286 /uL Not Available [facility] (Pre[facility]Op Clinic) [address] [place] [address] [place], [address], 08/08/2024 16:18:59 08/08/20 24 08/08/2024 CELL COUNT RBC 4000 /uL Not Available [facility] (Pre[facility]Op [facility]) [address] [place] [address] [place], [address], 08/08/2024 16:18:59 08/08/20 24 08/08/2024 CELL COUNT polynuclear 12.6 % Not Available [facility] (Pre[facility]Op [facility]) [address] [place] [address] [place], [address], 08/08/2024 16:18:59 08/08/20 24 08/08/2024 CELL COUNT mononuclear 87.4 % ALL COUNT S PERFO RMED ON HEMAC YTOME TER ARE DONE IN [facility]. Not Available [facility] (Pre[facility]Op Clinic) [address] [place] [address] [place], [address], 08/08/2024 16:18:59 08/08/20 24 08/08/2024 CELL COUNT note Unles s other duffy noted testi ng perfo rmed at: [facility] [address] [place] [address] Erwin osorio MD Not Available [facility] (Pre[facility]Op [facility]) [address] [place] [address] [place], [address], 08/08/2024 16:18:59 08/08/20 24 08/08/2024 CULTU RE BODY FLUID results B 08-09 824 No Growt h at 1 Day [facility] 08-10 851 No Growt h at 2 Days [facility] 08-11 843 No Growt h at 3 Days Not Available [facility] (Pre[facility]Op [facility]) [address] [place] [address] [place], [address], 08/11/2024 08:44:47 08/08/20 24 08/08/2024 CULTU RE BODY FLUID note Unles s other duffy noted testi ng perfo rmed at: [facility] [address] [place] [address] Erwin osorio MD Not Available [facility] ([facility]Op [facility]) [address] [facility], [address], 08/11/2024 08:44:47 08/08/20 24 08/08/2024 GRAM STAIN source PERITO ROSMERY Not Available [facility] (Pre[facility]Op [facility]) [address] [facility], [address], 08/09/2024 17:07:03 08/08/20 24 08/08/2024 GRAM STAIN organism #1 NO ORGANI SMS Not Available [facility] (Pre[facility]Op [facility]) [address] [facility], [address], 08/09/2024 17:07:03 08/08/20 24 08/08/2024 GRAM STAIN WBC NO WBC'S SEEN no WBC's seen Not Available [facility] (Pre[facility]Op [facility]) [address] [place] [address] [place], [address], 08/09/2024 17:07:03 08/08/20 24 08/08/2024 GRAM STAIN yeast NONE SEEN none seen Not Available [facility] (Pre[facility]Op [facility]) [address] [place] [address] [place], [address], 08/09/2024 17:07:03 08/08/20 24 08/08/2024 GRAM STAIN gram positive QC slide PASS PASS Not Available [facility] ([facility]Op [facility]) [address] [place] [address] [place], [address], 08/09/2024 17:07:03 08/08/20 24 08/08/2024 GRAM STAIN gram negative QC slide PASS PASS Not Available [facility] ([facility]Op [facility]) [address] [place] [address] [place], [address], 08/09/2024 17:07:03 08/08/20 24 08/08/2024 GRAM STAIN note Unles s other duffy noted testi ng perfo rmed at: [facility] [address] [facility] [place] [id number] Erwin osorio MD Not Available [facility] (Pre[facility]Op [facility]) [address] [facility], [address], 08/09/2024 17:07:03 09/05/2009/05/2024 COMP METAB OLIC PANEL sodium 139 mmol/ L 137-14 7 Not Available [facility] (Pre[facility]Op [facility]) [address] [place] [address] [place], [address], 09/05/2024 11:35:24 09/05/2009/05/2024 COMP METAB OLIC PANEL potassium 4.2 mmol/ L 3.5-5. 1 Not Available [facility] (Pre[facility]Op [facility]) [address] [place] [address] [place], [address], 09/05/2024 11:35:24 09/05/2009/05/2024 COMP METAB OLIC PANEL chloride 107 mmol/ L 98-110 Not Available [facility] (Pre[facility]Op [facility]) [address] [place] [address] [place], [address], 09/05/2024 11:35:24 09/05/20 24 09/05/2024 COMP METAB OLIC PANEL carbon dioxide 25 mmol/ L 21-30 Not Available [facility] ([facility]Op [facility]) [address] [place] [address] [place], [address], 09/05/2024 11:35:24 09/05/20 24 09/05/2024 COMP METAB OLIC PANEL anion gap 7 mmol/ L 6-14 Not Available [facility] (Pre[facility]Op [facility]) [address] [place] [address] [place], [address], 09/05/2024 11:35:24 09/05/20 24 09/05/2024 COMP METAB OLIC PANEL glucose 195 mg/dL 70-115 high Not Available [facility] (Pre[facility]Op [facility]) [address] [place] [address] [place], [address], 09/05/2024 11:35:24 09/05/20 24 09/05/2024 COMP METAB OLIC PANEL BUN 15 mg/dL 7-17 Not Available [facility] (Pre[facility]Op [facility]) [address] [facility], [address], 09/05/2024 11:35:24 09/05/20 24 09/05/2024 COMP METAB OLIC PANEL creatinine 0.8 mg/dL 0.5-1. 5 Not Available [facility] ([facility]Op [facility]) [address] [facility], [address], 09/05/2024 11:35:24 09/05/20 24 09/05/2024 COMP METAB OLIC PANEL BUN/creatini ne ratio 19 ratio 10-20 Not Available [facility] (Pre[facility]Op [facility]) [address] [place] [address] [place], [address], 09/05/2024 11:35:24 09/05/20 24 09/05/2024 COMP METAB [...] aleman ing kiney funct ion. Not Available [facility] (Pre[facility]Op [facility]) [address] [place] [address] [place], [address], 09/05/2024 11:35:24 09/05/20 24 09/05/2024 COMP METAB OLIC PANEL osmolality (calculated) 295 mosmo l/kg 275-30 1 OSMOL ALITY IS A CALCU LATIO N UTILI ZING THE SERUM /PLAS MA SODIU M, GLUCO SE AND UREA NITRO GEN (BUN) LEVEL S. FOR THE MOST ACCUR ATE RESUL T A MEASU RED SERUM OSMOL ALITY IS SUGGE STED. Not Available [facility] (Pre-Op Clinic) [address] [place] [address] [place], [address], 09/05/2024 11:35:24 09/05/20 24 09/05/2024 COMP METAB OLIC PANEL total protein 7.4 g/dL 6.2-8. 2 Not Available [facility] (Pre[facility]Op Clinic) [address] [facility], [address], 09/05/2024 11:35:24 09/05/20 24 09/05/2024 COMP METAB OLIC PANEL albumin 2.7 g/dL 3.5-5. 0 low Not Available [facility] (Pre[facility]Op [facility]) [address] [place] [address] [place], [address], 09/05/2024 11:35:24 09/05/20 24 09/05/2024 COMP METAB OLIC PANEL calcium 7.7 mg/dL 8.5-10 .8 low Not Available [facility] (Pre[facility]Op [facility]) [address] [place] [address] [place], [address], 09/05/2024 11:35:24 09/05/20 24 09/05/2024 COMP METAB OLIC PANEL bilirubin total 5.6 mg/dL 0.2-1. 3 high Not Available [facility] (Pre[facility]Op [facility]) [address] [place] [address] [place], [address], 09/05/2024 11:35:24 09/05/20 24 09/05/2024 COMP METAB OLIC PANEL AST (SGOT) 51 IU/L 14-36 high Not Available [facility] (Pre[facility]Op [facility]) [address] [place] [address] [place], [address], 09/05/2024 11:35:24 09/05/20 24 09/05/2024 COMP METAB OLIC PANEL ALT (SGPT) 21 IU/L 0-35 Pleas e note new refer ence inter tylor for ALT. Due to a recen t manuf actur er metho dolog y aleman e, the refer ence inter tylor for ALT is lower effec tive March 12, 2021. Not Available [facility] (Pre[facility]Op [facility]) [address] [place] [address] [place], [address], 09/05/2024 11:35:24 09/05/20 24 09/05/2024 COMP METAB OLIC PANEL alk phosphatase 156 IU/L 38-126 high Not Available [facility]Op [facility]) [address] [facility], [address], 09/05/2024 11:35:24 09/05/2009/05/2024 COMP METAB OLIC PANEL note Unles s other duffy noted testi ng perfo [facility]med at: [facility] [address] [place] [address] Erwin osorio MD Not Available [facility] (Pre[facility]Op [facility]) [address] [place] [address] [place], [address], 09/05/2024 11:35:24 09/05/20 24 09/05/2024 CELL COUNT body fluid count performed by: AUTOMA HEIDI COUNT Not Available [facility] (Pre-Op Clinic) [address] [place] [address] [place], [address], 09/05/2024 16:39:59 09/05/2009/05/2024 CELL COUNT source PERITO ROSMERY Not Available [facility] (Pre-Op Clinic) [address] [place] [address] [place], [address], 09/05/2024 16:39:59 09/05/2009/05/2024 CELL COUNT color YELLOW clear Not Available [facility] (Pre[facility]Op [facility]) [address] [place] [address] [place], [address], 09/05/2024 16:39:59 09/05/2009/05/2024 CELL COUNT apperance CLEAR clear Not Available [facility] (Pre-Op Clinic) [address] [place] [address] [place], [address], 09/05/2024 16:39:59 09/05/20 24 09/05/2024 CELL COUNT viscosity NORMAL normal Not Available [facility] (Pre-Op Clinic) [address] [place] [address] [place] [place], [address], 09/05/2024 16:39:59 09/05/2009/05/2024 CELL COUNT WBC 180 /uL Not Available [facility] ([facility]) [address] [place] [address] [place], [address], 09/05/2024 16:39:59 09/05/2009/05/2024 CELL COUNT RBC 2000 /uL Not Available [facility] ([facility]) [address] [place] [address] [place], [address], 09/05/2024 16:39:59 09/05/2009/05/2024 CELL COUNT polynuclear 15 % Not Available [facility] ([facility]) [address] [place] [address] [place], [address], 09/05/2024 16:39:59 09/05/2009/05/2024 CELL COUNT mononuclear 85 % ALL COUNT S PERFO RMED ON HEMAC YTOME TER ARE DONE IN [facility]. Not Available [facility] ([facility]) [address] [place] [address] [place], [address], 09/05/2024 16:39:59 09/05/2009/05/2024 CELL COUNT note Unles s other duffy noted testi ng perfo rmed at: [facility] [address] [place] [address] Erwin osorio MD Not Available [facility] ([facility]) [address] [place] [address] [place], [address], 09/05/2024 16:39:59 09/05/2009/05/2024 GRAM STAIN source PERITO ROSMERY Not Available [facility] ([facility]) [address] [place] [address] [place], [address], 09/05/2024 17:36:46 09/05/2009/05/2024 GRAM STAIN organism #1 NO ORGANI SMS Not Available [facility] ([facility]) [address] [place] [address] [place], [address], 09/05/2024 17:36:46 09/05/20 24 09/05/2024 GRAM STAIN WBC NO WBC'S SEEN no WBC's seen Not Available [facility] ([facility]Op Clinic) [address] [place] [address] [place], [address], 09/05/2024 17:36:46 09/05/2009/05/2024 GRAM STAIN gram positive QC slide PASS PASS Not Available [facility] ([facility]Op Clinic) [address] [place] [address] [place], [address], 09/05/2024 17:36:46 09/05/20 24 09/05/2024 GRAM STAIN gram negative QC slide PASS PASS Not Available [facility] ([facility]Op [facility]) [address] [place] [address] [place], [address], 09/05/2024 17:36:46 09/05/2009/05/2024 GRAM STAIN note Unles s other duffy noted testi ng perfo rmed at: [facility] [address] [place] [address] Erwin osorio MD Not Available [facility] (Pre[facility]Op Clinic) [address] [place] [address] [place], [address], 09/05/2024 17:36:46 09/05/20 24 09/05/2024 CULTU RE BODY FLUID results B 09-06 643 No Growt h at 1 Day [facility] 09-07 845 No Growt h at 2 Days [facility] 09-08 701 No Growt h at 3 Days Not Available [facility] (Pre[facility]Op [facility]) [address] [place] [address] [place], [address], 09/08/2024 07:03:16 09/05/20 24 09/05/2024 CULTU RE BODY FLUID note Unles s other duffy noted testi ng perfo rmed at: [facility] [address] [place] [address] Erwin osorio MD Not Available [facility] ([facility]) [address] [facility], [address], 09/08/2024 07:03:16 09/12/20 24 09/12/2024 CELL COUNT body fluid count performed by: AUTOMA HEIDI COUNT Not Available [facility] ([facility]) [address] [place] [address] [place], [address], 09/12/2024 16:01:35 09/12/2009/12/2024 CELL COUNT source PERITO ROSMERY Not Available [facility] ([facility]) [address] [place] [address] [place], [address], 09/12/2024 16:01:35 09/12/2009/12/2024 CELL COUNT color YELLOW clear Not Available [facility] ([facility]Op [facility]) [address] [place] [address] [place], [address], 09/12/2024 16:01:35 09/12/2009/12/2024 CELL COUNT apperance CLEAR clear Not Available [facility] ([facility]Op [facility]) [address] [place] [address] [place], [address], 09/12/2024 16:01:35 09/12/2009/12/2024 CELL COUNT viscosity NORMAL Q normal Not Available [facility] ([facility]) [address] [place] [address] [place], [address], 09/12/2024 16:01:35 09/12/2009/12/2024 CELL COUNT WBC 211 /uL Not Available [facility] ([facility]) [address] [place] [address] [place], [address], 09/12/2024 16:01:35 09/12/20 24 09/12/2024 CELL COUNT RBC 2000 /uL Not Available [facility] ([facility]) [address] [facility] [place], [address], 09/12/2024 16:01:35 09/12/2009/12/2024 CELL COUNT polynuclear 9 % Not Available [facility] ([facility]) [address] [place] [address] [place], [address], 09/12/2024 16:01:35 09/12/2009/12/2024 CELL COUNT mononuclear 91 % ALL COUNT S PERFO RMED ON HEMAC YTOME TER ARE DONE IN [facility]. Not Available [facility] ([facility]) [address] [place] [address] [place], [address], 09/12/2024 16:01:35 09/12/2009/12/2024 CELL COUNT note Unles s other duffy noted testi ng perfo rmed at: [facility] [address] [place] [address] Erwin osorio MD Not Available [facility] ([facility]) [address] [place] [address] [place], [address], 09/12/2024 16:01:35 09/12/20 24 09/12/2024 GRAM STAIN note Unles s other duffy noted testi ng perfo rmed at: [facility] [address] [place] [address] Erwin osorio MD Not Available [facility] ([facility]) [address] [place] [address] [place], [address], 09/13/2024 01:17:27 09/12/2009/13/2024 GRAM STAIN source PERITO ROSMERY Not Available [facility] ([facility]) [address] [place] [address] [place], [address], 09/13/2024 01:17:27 09/12/20 24 09/13/2024 GRAM STAIN organism #1 NO ORGANI SMS Not Available [facility] ([facility]) [address] [place] [address] [place], [address], 09/13/2024 01:17:27 09/12/2009/13/2024 GRAM STAIN WBC NO WBC'S SEEN no WBC's seen Not Available [facility] ([facility]) [address] [place] [address] [place], [address], 09/13/2024 01:17:27 09/12/2009/13/2024 GRAM STAIN yeast NONE SEEN none seen Not Available [facility] ([facility]) [address] [place] [address] [place], [address], 09/13/2024 01:17:27 09/12/2009/13/2024 GRAM STAIN gram positive QC slide PASS PASS Not Available [facility] ([facility]) [address] [place] [address] [place], [address], 09/13/2024 01:17:27 09/12/2009/13/2024 GRAM STAIN gram negative QC slide PASS PASS Not Available [facility] ([facility]) [address] [place] [address] [place], [address], 09/13/2024 01:17:27 09/12/2009/12/2024 CULTU RE BODY FLUID results [facility] 09-13 1331 No Growt h at 1 Day [facility] 09-14 905 No Growt h at 2 Days [facility] 09-15 643 No Growt h at 3 Days Not Available [facility] ([facility]Op [facility]) [address] [place] [address] [place], [address], 09/15/2024 06:44:53 09/12/2009/12/2024 CULTU RE BODY FLUID note Unles s other duffy noted testi ng perfo rmed at: [facility] [address] [place] [address] Erwin osorio MD Not Available [facility] ([facility]) [address] [place] [address] [place], [address], 09/15/2024 06:44:53 09/19/20 24 09/19/2024 PT WITH INR AND PTT protime 14.9 secon ds 9.0-12 .0 high Not Available [facility] ([facility]) [address] [place] [address] [place], [address], 09/19/2024 13:40:24 09/19/20 24 09/19/2024 PT WITH [...] MECHA NICAL HEART VALVE . Not Available [facility] ([facility]) [address] [place] [address] [place], [address], 09/19/2024 13:40:24 09/19/20 24 09/19/2024 PT WITH INR AND PTT partial thromb time 29.6 secon ds 20-34 THE EQUIV ALENT APTT VALUE S FOR THERA PEUTI C RANGE OF HEPAR IN AT 0.3 TO O.5 IU/mL ARE 51.8 TO 80.0 SECON DS. Not Available [facility] ([facility]) [address] [place] [address] [place], [id number], 09/19/2024 13:40:24 09/19/20 24 09/19/2024 PT WITH INR AND PTT note Unles s other duffy noted testi ng perfo rmed at: [facility] [address] [place] [address] Erwin osorio MD Not Available [facility] ([facility]) [address] [facility], [address], 09/19/2024 13:40:24 09/19/20 24 09/19/2024 COMP METAB OLIC PANEL sodium 137 mmol/ L 137-14 7 Not Available [facility] ([facility]) [address] [place] [address] [place], [address], 09/19/2024 13:59:10 09/19/20 24 09/19/2024 COMP METAB OLIC PANEL potassium 3.7 mmol/ L 3.5-5. 1 Not Available [facility] ([facility]) [address] [place] [address] [place], [address], 09/19/2024 13:59:10 09/19/20 24 09/19/2024 COMP METAB OLIC PANEL chloride 104 mmol/ L 98-110 Not Available [facility] ([facility]) [address] [place] [address] [place], [address], 09/19/2024 13:59:10 09/19/20 24 09/19/2024 COMP METAB OLIC PANEL carbon dioxide 27 mmol/ L 21-30 Not Available [facility] ([facility]) [address] [place] [address] [place], [address], 09/19/2024 13:59:10 09/19/20 24 09/19/2024 COMP METAB OLIC PANEL anion gap 6 mmol/ L 6-14 Not Available [facility] ([facility]) [address] [place] [address] [place], [address], 09/19/2024 13:59:10 09/19/20 24 09/19/2024 COMP METAB OLIC PANEL glucose 190 mg/dL 70-115 high Not Available [facility] ([facility]) [address] [place] [address] [place], [address], 09/19/2024 13:59:10 09/19/20 24 09/19/2024 COMP METAB OLIC PANEL BUN 22 mg/dL 7-17 high Not Available [facility] ([facility]) [address] [facility], [address], 09/19/2024 13:59:10 09/19/20 24 09/19/2024 COMP METAB OLIC PANEL creatinine 0.8 mg/dL 0.5-1. 5 Not Available [facility] ([facility]) [address] [facility], [address], 09/19/2024 13:59:10 09/19/20 24 09/19/2024 COMP METAB OLIC PANEL BUN/creatini ne ratio 28 10-20 high Not Available [facility] ([facility]) [address] [place] [address] [place], [address], 09/19/2024 13:59:10 09/19/20 24 09/19/2024 COMP METAB [...] aleman ing kiney funct ion. Not Available [facility] ([facility]) [address] [place] [address] [place], [address], 09/19/2024 13:59:10 09/19/20 24 09/19/2024 COMP METAB OLIC PANEL osmolality (calculated) 294 mosmo l/kg 275-30 1 OSMOL ALITY IS A CALCU LATIO N UTILI ZING THE SERUM /PLAS MA SODIU M, GLUCO SE AND UREA NITRO GEN (BUN) LEVEL S. FOR THE MOST ACCUR ATE RESUL T A MEASU RED SERUM OSMOL ALITY IS SUGGE STED. Not Available [facility] ([facility]) [address] [place] [address] [place], [address], 09/19/2024 13:59:10 09/19/20 24 09/19/2024 COMP METAB OLIC PANEL total protein 7.5 g/dL 6.2-8. 2 Not Available [facility] ([facility]) [address] [place] [address] [place], [address], 09/19/2024 13:59:10 09/19/20 24 09/19/2024 COMP METAB OLIC PANEL albumin 2.9 g/dL 3.5-5. 0 low Not Available [facility] ([facility]) [address] [place] [address] [place], [address], 09/19/2024 13:59:10 09/19/20 24 09/19/2024 COMP METAB OLIC PANEL calcium 7.8 mg/dL 8.5-10 .8 low Not Available [facility] ([facility]) [address] [place] [address] [place], [address], 09/19/2024 13:59:10 09/19/20 24 09/19/2024 COMP METAB OLIC PANEL bilirubin total 4.3 mg/dL 0.2-1. 3 high Not Available [facility] ([facility]) [address] [place] [address] [place], [address], 09/19/2024 13:59:10 09/19/20 24 09/19/2024 COMP METAB OLIC PANEL AST (SGOT) 39 IU/L 14-36 high Not Available [facility] ([facility]) [address] [place] [address] [place], [address], 09/19/2024 13:59:10 09/19/20 24 09/19/2024 COMP METAB OLIC PANEL ALT (SGPT) 19 IU/L 0-35 Pleas e note new refer ence inter tylor for ALT. Due to a recen t manuf actur er metho dolog y aleman e, the refer ence inter tylor for ALT is lower effec tive March 12, 2021. Not Available [facility] ([facility]) [address] [place] [address] [place], [address], 09/19/2024 13:59:10 09/19/20 24 09/19/2024 COMP METAB OLIC PANEL alk phosphatase 243 IU/L 38-126 high Not Available [facility]) [address] [facility], [address], 09/19/2024 13:59:10 09/19/20 24 09/19/2024 COMP METAB OLIC PANEL note Unles s other duffy noted testi ng perfo rmed at: [facility] [address] [place] [address] Erwin osorio MD Not Available [facility] ([facility]) [address] [facility], [address], 09/19/2024 13:59:10 09/19/20 24 09/19/2024 CBC NO DIFF (HEMO GRAM) WBC 5.68 K/uL 4.5-11 .5 Not Available [facility] ([facility]Op [facility]) [address] [place] [address] [place], [address], 09/19/2024 14:04:34 09/19/20 24 09/19/2024 CBC NO DIFF (HEMO GRAM) RBC 3.28 M/uL 4.0-5. 4 low Not Available [facility] ([facility]Op [facility]) [address] [place] [address] [place], [address], 09/19/2024 14:04:34 09/19/20 24 09/19/2024 CBC NO DIFF (HEMO GRAM) HGB 10.7 g/dL 12.0-1 5.0 low Not Available [facility] ([facility]Op [facility]) [address] [place] [address] [place], [address], 09/19/2024 14:04:34 09/19/20 24 09/19/2024 CBC NO DIFF (HEMO GRAM) HCT 32.3 % 35-49 low Not Available [facility] ([facility]Op [facility]) [address] [place] [address] [place], [address], 09/19/2024 14:04:34 09/19/20 24 09/19/2024 CBC NO DIFF (HEMO GRAM) MCV 98.5 fL 80.0-1 00.0 Not Available [facility] ([facility]) [address] [facility] [place], [address], 09/19/2024 14:04:34 09/19/20 24 09/19/2024 CBC NO DIFF (HEMO GRAM) MCH 32.6 pg 26.0-3 2.0 high Not Available [facility] ([facility]) [address] [place] [address] [place], [address], 09/19/2024 14:04:34 09/19/20 24 09/19/2024 CBC NO DIFF (HEMO GRAM) MCHC 33.1 g/dL 32.0-3 6.0 Not Available [facility] ([facility]) [address] [place] [address] [place], [address], 09/19/2024 14:04:34 09/19/20 24 09/19/2024 CBC NO DIFF (HEMO GRAM) RDW 14.6 % 11.5-1 4.5 high Not Available [facility] ([facility]) [address] [place] [address] [place], [address], 09/19/2024 14:04:34 09/19/20 24 09/19/2024 CBC NO DIFF (HEMO GRAM) platelet count 90 K/uL 142-42 4 low Not Available [facility] ([facility]) [address] [place] [address] [place], [address], 09/19/2024 14:04:34 09/19/20 24 09/19/2024 CBC NO DIFF (HEMO GRAM) MPV 10.6 fL 6.8-10 .2 high Not Available [facility] ([facility]) [address] [place] [address] [place], [address], 09/19/2024 14:04:34 09/19/20 24 09/19/2024 CBC NO DIFF (HEMO GRAM) note Unles s other duffy noted testi ng perfo rmed at: [facility] [address] [facility] [place] [id number] Erwin osorio MD Not Available [facility] ([facility]) [address] [facility], [address], 09/19/2024 14:04:34 09/19/20 24 09/19/2024 UA WITH CULTU RE IF INDIC ATED color JOANNA yellow Not Available [facility] ([facility]) [address] [place] [address] [place], [address], 09/19/2024 17:37:07 09/19/20 24 09/19/2024 UA WITH CULTU RE IF INDIC ATED appearance HAZY clear Not Available [facility] ([facility]Op [facility]) [address] [facility], [address], 09/19/2024 17:37:07 09/19/20 24 09/19/2024 UA WITH CULTU RE IF INDIC ATED glucose NEGATI VE negati ve Not Available [facility] ([facility]Op [facility]) [address] [place] [address] [place], [address], 09/19/2024 17:37:07 09/19/20 24 09/19/2024 UA WITH CULTU RE IF INDIC ATED bilirubin 2+ negati ve Not Available [facility] ([facility]) [address] [place] [address] [place], [address], 09/19/2024 17:37:07 09/19/20 24 09/19/2024 UA WITH CULTU RE IF INDIC ATED ictotest (bili confirmation ) POSITI VE negati ve delta Not Available [facility] ([facility]) [address] [place] [address] [place], [address], 09/19/2024 17:37:07 10/30/09/19/2024 UA WITH CULTU RE IF INDIC ATED ketone TRACE negati ve Not Available [facility] ([facility]) [address] [facility], [address], 09/19/2024 17:37:07 09/19/20 24 09/19/2024 UA WITH CULTU RE IF INDIC ATED specific gravity 1.025 1.005- 1.025 Not Available [facility] ([facility]) [address] [facility], [address], 09/19/2024 17:37:07 09/19/20 24 09/19/2024 UA WITH CULTU RE IF INDIC ATED blood 2+ negati ve Not Available [facility] ([facility]) [address] [facility], [address], 09/19/2024 17:37:07 09/19/20 24 09/19/2024 UA WITH CULTU RE IF INDIC ATED pH 5.5 5.0-8. 0 Not Available [facility] ([facility]) [address] [facility], [address], 09/19/2024 17:37:07 09/19/20 24 09/19/2024 UA WITH CULTU RE IF INDIC ATED protein 1+ negati ve Not Available [facility] ([facility]) [address] [facility], [address], 09/19/2024 17:37:07 09/19/20 24 09/19/2024 UA WITH CULTU RE IF INDIC ATED urobilinogen 2.0 E.U./ dL 0.0 - 0.2 Not Available [facility] ([facility]) [address] [facility], [address], 09/19/2024 17:37:07 09/19/20 24 09/19/2024 UA WITH CULTU RE IF INDIC ATED nitrite POSITI VE negati ve delta Not Available [facility] ([facility]) [address] [facility], [address], 09/19/2024 17:37:07 09/19/20 24 09/19/2024 UA WITH CULTU RE IF INDIC ATED leukocyte esterase TRACE negati ve Not Available [facility] ([facility]) [address] [place] [address] [place], [address], 09/19/2024 17:37:07 09/19/20 24 09/19/2024 UA WITH CULTU RE IF INDIC ATED culture indicated? INDICA HEIDI Carrion alena met for urine cultu re. Cultu re Order ed. Not Available [facility] ([facility]) [address] [place] [address] [place], [address], 09/19/2024 17:37:07 09/19/20 24 09/19/2024 UA WITH CULTU RE IF INDIC ATED urine microscopic YES UAM order aleman ed to UA due to need of micro scopi c testi ng Not Available [facility] ([facility]) [address] [place] [address] [place], [address], 09/19/2024 17:37:07 09/19/20 24 09/19/2024 UA WITH CULTU RE IF INDIC ATED RBC 10-15 none seen/h pf Not Available [facility] ([facility]) [address] [place] [address] [place], [address], 09/19/2024 17:37:07 09/19/20 24 09/19/2024 UA WITH CULTU RE IF INDIC ATED WBC 15-20 none seen/h pf Not Available [facility] ([facility]) [address] [place] [address] [place], [address], 09/19/2024 17:37:07 09/19/20 24 09/19/2024 UA WITH CULTU RE IF INDIC ATED epithelial cell 2-5 none seen Not Available [facility] ([facility]) [address] [place] [address] [place], [address], 09/19/2024 17:37:07 09/19/20 24 09/19/2024 UA WITH CULTU RE IF INDIC ATED bacteria 3+ negati ve Not Available [facility] ([facility]) [address] [facility], [id number], 09/19/2024 17:37:07 09/19/20 24 09/19/2024 UA WITH CULTU RE IF INDIC ATED note Unles s other duffy noted testi ng [facility] [address] [place] [address] Erwin osorio MD Not Available [facility] ([facility]) [address] [facility], [address], 09/19/2024 17:37:07 09/19/20 24 09/19/2024 CELL COUNT body fluid count performed by: AUTOMA HEIDI COUNT Not Available [facility] ([facility]) [address] [place] [address] [place], [address], 09/19/2024 17:42:34 09/19/20 24 09/19/2024 CELL COUNT source ASCITE S Not Available [facility] ([facility]) [address] [place] [address] [place], [address], 09/19/2024 17:42:34 09/19/20 24 09/19/2024 CELL COUNT color YELLOW clear Not Available [facility] ([facility]) [address] [place] [address] [place], [address], 09/19/2024 17:42:34 09/19/20 24 09/19/2024 CELL COUNT apperance CLOUDY clear Not Available [facility] ([facility]) [address] [place] [address] [place], [address], 09/19/2024 17:42:34 09/19/20 24 09/19/2024 CELL COUNT volume 7800 cc Not Available [facility] ([facility]) [address] [place] [address] [place], [address], 09/19/2024 17:42:34 09/19/20 24 09/19/2024 CELL COUNT viscosity NORMAL normal Not Available [facility] ([facility]) [address] [place] [address] [place], [address], 09/19/2024 17:42:34 09/19/20 24 09/19/2024 CELL COUNT WBC 181 /uL Not Available [facility] ([facility]) [address] [place] [address] [place], [address], 09/19/2024 17:42:34 09/19/20 24 09/19/2024 CELL COUNT RBC 3000 /uL Not Available [facility] ([facility]) [address] [place] [address] [place], [address], 09/19/2024 17:42:34 09/19/20 24 09/19/2024 CELL COUNT polynuclear 13.8 % Not Available [facility] ([facility]) [address] [place] [address] [place], [address], 09/19/2024 17:42:34 09/19/20 24 09/19/2024 CELL COUNT mononuclear 86.2 % ALL COUNT S PERFO RMED ON HEMAC YTOME TER ARE DONE IN [facility]. Not Available [facility] ([facility]) [address] [place] [address] [place], [address], 09/19/2024 17:42:34 09/19/20 24 09/19/2024 CELL COUNT note Unles s other duffy noted testi ng perfo rmed at: [facility] [address] [place] [address] Erwin osorio MD Not Available [facility] ([facility]) [address] [place] [address] [place], [address], 09/19/2024 17:42:34 09/19/20 24 09/19/2024 CULTU RE URINE W PRESU MP ID results SMB 09-20 808 [place] te:1 >100, 000 Colon y Count Gram Negat adina Rods Not Available [facility] ([facility]) [address] [place] [address] [place], [address], 09/20/2024 08:10:41 09/19/20 24 09/19/2024 CULTU RE URINE W PRESU MP ID note Unles s other duffy noted testi ng perfo rmed at: [facility] [address] [place] [address] Erwin osorio MD Not Available [facility] ([facility]) [address] [place] [address] [place], [address], 09/20/2024 08:10:41 09/19/20 24 09/19/2024 CULTU RE BODY FLUID results [facility] 09-20 746 No Growt h at 1 Day [facility] 09-21 906 No Growt h at 2 Days [facility] 09-22 857 No Growt h at 3 Days Not Available [facility] ([facility]Op [facility]) [address] [place] [address] [place], [address], 09/22/2024 08:58:51 09/19/20 24 09/19/2024 CULTU RE BODY FLUID note Unles s other duffy noted testi ng perfo rmed at: [facility] [address] [place] [address] Erwin osorio MD Not Available [facility] ([facility]) [address] [place] [address] [place], [address], 09/22/2024 08:58:51 09/19/20 24 09/19/2024 GRAM STAIN source PERITO ROSMERY Not Available [facility] (Pre-Op Clinic) [address] [place] [address] [place], [address], 09/19/2024 19:36:53 09/19/20 24 09/19/2024 GRAM STAIN organism #1 NO ORGANI SMS Not Available [facility] (Pre[facility]Op Clinic) [address] [facility], [address], 09/19/2024 19:36:53 09/19/20 24 09/19/2024 GRAM STAIN WBC FEW no WBC's seen Not Available [facility] ([facility]) [address] [facility], [address], 09/19/2024 19:36:53 09/19/20 24 09/19/2024 GRAM STAIN yeast NONE SEEN none seen Not Available [facility] ([facility]) [address] [facility], [address], 09/19/2024 19:36:53 09/19/20 24 09/19/2024 GRAM STAIN gram positive QC slide PASS PASS Not Available [facility] ([facility]) [address] [facility], [address], 09/19/2024 19:36:53 09/19/20 24 09/19/2024 GRAM STAIN gram negative QC slide PASS PASS Not Available [facility] ([facility]) [address] [facility], [address], 09/19/2024 19:36:53 09/19/20 24 09/19/2024 GRAM STAIN note Unles s other duffy noted testi ng perfo rmed at: [facility] [address] [place] [address] Erwin osorio MD Not Available [facility] ([facility]) [address] [facility], [address], 09/19/2024 19:36:53 09/19/20 24 09/19/2024 ALPHA FETOP ROTEI N TUMOR MARKE R note Unles s other duffy noted testi ng perfo rmed at: [facility] [address] [place] [address] Erwin osorio MD Not Available [facility] ([facility]) [address] [facility], [address], 09/20/2024 08:23:35 09/19/20 24 09/20/2024 ALPHA FETOP [...] t be inter prete d as absol [place] evide nce of the prese nce or absen ce of malig nant disea se. . This test is not inter preta ble in pregn ant femal es. Perfo rmed at: - [facility] 20[address] [facility] [place] [address] Lab Direc tor: Jose ramírez PhD, Phone : [phone] Not Available [facility] (Pre-Op Clinic) [address] [place] [address] [place], [address], 09/20/2024 08:23:35 09/19/20 24 09/19/2024 CULTU RE URINE W PRESU MP ID culur ===== ===== ===== ===== ===== ===== ===== ===== ===== ===== ===== ===== ===== ===== ===== ===== ===== ===== ===== ===== ===== ===== ===== ===== CULTU RE NO.: [id number] Exam Statu s: Final Exam Type: [...] <=0.5 / S 007A SMB 09-20 808 [place] te:1 >100, 000 Colon y Count Gram Negat adina Rods Not Available [facility] ([facility]Op [facility]) [address] [place] [address] [place], [address], 09/21/2024 07:38:56 09/19/20 24 09/19/2024 CULTU RE URINE W PRESU MP ID note Unles s other duffy noted testi ng perfo rmed at: [facility] [address] [place] [address] Erwin osorio MD Not Available [facility] ([facility]Op [facility]) [address] [place] [address] [place], [address], 09/21/2024 07:38:56 09/26/20 24 09/26/2024 CELL COUNT body fluid count performed by: AUTOMA HEIDI COUNT Not Available [facility] (Pre[facility]Op Clinic) [address] [facility], [address], 09/26/2024 18:31:52 09/26/20 24 09/26/2024 CELL COUNT source ASCITE S Not Available [facility] ([facility]Op [facility]) [address] [facility], [address], 09/26/2024 18:31:52 09/26/20 24 09/26/2024 CELL COUNT color JOANNA clear Not Available [facility] ([facility]Op [facility]) [address] [place] [address] [place], [address], 09/26/2024 18:31:52 09/26/20 24 09/26/2024 CELL COUNT apperance CLOUDY clear Not Available [facility] ([facility]Op [facility]) [address] [place] [address] [place], [address], 09/26/2024 18:31:52 09/26/20 24 09/26/2024 CELL COUNT volume 8400 cc Not Available [facility] ([facility]Op [facility]) [address] [place] [address] [place], [address], 09/26/2024 18:31:52 09/26/20 24 09/26/2024 CELL COUNT viscosity NORMAL normal Not Available [facility] ([facility]Op [facility]) [address] [place] [address] [place], [address], 09/26/2024 18:31:52 09/26/20 24 09/26/2024 CELL COUNT WBC 155 /uL Not Available [facility] ([facility]Op [facility]) [address] [place] [address] [place], [address], 09/26/2024 18:31:52 09/26/20 24 09/26/2024 CELL COUNT RBC 3000 /uL Not Available [facility] ([facility]) [address] [place] [address] [place], [address], 09/26/2024 18:31:52 09/26/20 24 09/26/2024 CELL COUNT polynuclear 12 % Not Available [facility] ([facility]Op [facility]) [address] [place] [address] [place], [address], 09/26/2024 18:31:52 09/26/20 24 09/26/2024 CELL COUNT mononuclear 88 % ALL COUNT S PERFO RMED ON HEMAC YTOME TER ARE DONE IN [facility]. Not Available [facility] ([facility]) [address] [place] [address] [place], [address], 09/26/2024 18:31:52 09/26/20 24 09/26/2024 CELL COUNT note Unles s other duffy noted testi ng [facility]fo [facility]med [facility]: [facility] [address] [place] [address] Erwin osorio MD Not Available [facility] ([facility]) [address] [place] [address] [place], [address], 09/26/2024 18:31:52 09/26/20 24 09/26/2024 GRAM STAIN source PERITO ROSMERY Not Available [facility] ([facility]Op [facility]) [address] [place] [address] [place], [address], 09/26/2024 20:28:19 09/26/20 24 09/26/2024 GRAM STAIN organism #1 NO ORGANI SMS Not Available [facility] ([facility]) [address] [place] [address] [place], [address], 09/26/2024 20:28:19 09/26/20 24 09/26/2024 GRAM STAIN WBC NO WBC'S SEEN no WBC's seen Not Available [facility] ([facility]Op [facility]) [address] [place] [address] [place], [address], 09/26/2024 20:28:19 09/26/20 24 09/26/2024 GRAM STAIN yeast NONE SEEN none seen Not Available [facility] ([facility]) [address] [place] [address] [place], [address], 09/26/2024 20:28:19 09/26/20 24 09/26/2024 GRAM STAIN gram positive QC slide PASS PASS Not Available [facility] ([facility]) [address] [place] [address] [place], [address], 09/26/2024 20:28:19 09/26/20 24 09/26/2024 GRAM STAIN gram negative QC slide PASS PASS Not Available [facility] ([facility]) [address] [place] [address] [place], [address], 09/26/2024 20:28:19 09/26/20 24 09/26/2024 GRAM STAIN note Edith olmstead duffy noted testi ng perfo rmed at: [facility] [address] [place] [address] Erwin osorio MD Not Available [facility] ([facility]) [address] [place] [address] [place], [address], 09/26/2024 20:28:19 09/26/20 24 09/26/2024 CULTU RE BODY FLUID results [facility] 09-27 1325 No Growt h at 1 Day [facility] 09-28 943 No Growt h at 2 Days [facility] 09-29 927 No Growt h at 3 Days Not Available [facility] ([facility]Op [facility]) [address] [place] [address] [place], [address], 09/29/2024 09:29:35 09/26/20 24 09/26/2024 CULTU RE BODY FLUID note Unles s other duffy noted testi ng perfo rmed at: [facility] [address] [place] [address] Erwin osorio MD Not Available [facility] ([facility]) [address] [place] [address] [place], [address], 09/29/2024 09:29:35 10/03/20 24 10/03/2024 CELL COUNT body fluid count performed by: AUTOMA HEIDI COUNT Not Available [facility] ([facility]Op [facility]) [address] [facility], [address], 10/03/2024 14:55:47 10/03/20 24 10/03/2024 CELL COUNT source PERITO ROSMERY Not Available [facility] ([facility]) [address] [place] [address] [place], [address], 10/03/2024 14:55:47 10/03/2010/03/2024 CELL COUNT color YELLOW clear Not Available [facility] ([facility]) [address] [place] [address] [place], [address], 10/03/2024 14:55:47 10/03/20 24 10/03/2024 CELL COUNT apperance CLEAR clear Not Available [facility] ([facility]Op [facility]) [address] [place] [address] [place], [address], 10/03/2024 14:55:47 10/03/20 24 10/03/2024 CELL COUNT viscosity NORMAL normal Not Available [facility] ([facility]Op [facility]) [address] [place] [address] [place], [address], 10/03/2024 14:55:47 10/03/20 24 10/03/2024 CELL COUNT WBC 243 /uL Not Available [facility] ([facility]) [address] [place] [address] [place], [address], 10/03/2024 14:55:47 10/03/20 24 10/03/2024 CELL COUNT RBC 4000 /uL Not Available [facility] ([facility]Op [facility]) [address] [place] [address] [place], [address], 10/03/2024 14:55:47 10/03/20 24 10/03/2024 CELL COUNT polynuclear 13.6 % Not Available [facility] ([facility]Op [facility]) [address] [place] [address] [place], [address], 10/03/2024 14:55:47 10/03/20 24 10/03/2024 CELL COUNT mononuclear 86.4 % ALL COUNT S PERFO RMED ON HEMAC YTOME TER ARE DONE IN [facility]. Not Available [facility] ([facility]) [address] [facility], [address], 10/03/2024 14:55:47 10/03/20 24 10/03/2024 CELL COUNT note Unles s other duffy noted testi ng perfo rmed at: [facility] [address] [place] [address] Erwin osorio MD Not Available [facility] ([facility]) [address] [place] [address] [place], [address], 10/03/2024 14:55:47 10/03/20 24 10/03/2024 GRAM STAIN source PERITO ROSMERY Not Available [facility] ([facility]) [address] [place] [address] [place], [address], 10/03/2024 16:19:09 10/03/20 24 10/03/2024 GRAM STAIN organism #1 NO ORGANI SMS Not Available [facility] ([facility]) [address] [place] [address] [place], [address], 10/03/2024 16:19:09 10/03/20 24 10/03/2024 GRAM STAIN WBC NO WBC'S SEEN no WBC's seen Not Available [facility] ([facility]) [address] [place] [address] [place], [address], 10/03/2024 16:19:09 10/03/20 24 10/03/2024 GRAM STAIN gram positive QC slide PASS PASS Not Available [facility] ([facility]) [address] [place] [address] [place], [address], 10/03/2024 16:19:09 10/03/20 24 10/03/2024 GRAM STAIN gram negative QC slide PASS PASS Not Available [facility] ([facility]) [address] [facility], [address], 10/03/2024 16:19:09 10/03/20 24 10/03/2024 GRAM STAIN note Unles s other duffy noted testi ng perfo rmed at: [facility] [address] [place] [address] Erwin osorio MD Not Available [facility] ([facility]) [address] [facility], [address], 10/03/2024 16:19:09 10/03/20 24 10/03/2024 CULTU RE BODY FLUID results [facility] 10-04 815 No Growt h at 1 Day [facility] 10-05 926 No Growt h at 2 Days [facility] 10-06 850 No Growt h at 3 Days Not Available [facility] ([facility]) [address] [place] [address] [place], [address], 10/06/2024 08:51:22 10/03/20 24 10/03/2024 CULTU RE BODY FLUID note Unles s other duffy noted testi ng perfo rmed at: [facility] [address] [place] [address] Erwin osorio MD Not Available [facility] ([facility]) [address] [facility], [address], 10/06/2024 08:51:22 10/10/20 24 10/10/2024 CELL COUNT body fluid count performed by: AUTOMA HEIDI COUNT Not Available [facility] (Pre-Op [facility]) [address] [place] [address] [place], [address], 10/10/2024 19:08:40 10/10/20 24 10/10/2024 CELL COUNT source ABDOMI NAL Not Available [facility] ([facility]) [address] [place] [address] [place], [address], 10/10/2024 19:08:40 10/10/20 24 10/10/2024 CELL COUNT color JOANNA clear Not Available [facility] ([facility]Op [facility]) [address] [place] [address] [place], [address], 10/10/2024 19:08:40 10/10/20 24 10/10/2024 CELL COUNT apperance CLEAR clear Not Available [facility] ([facility]) [address] [place] [address] [place], [address], 10/10/2024 19:08:40 10/10/20 24 10/10/2024 CELL COUNT viscosity NORMAL normal Not Available [facility] (Pre-Op [facility]) [address] [place] [address] [place], [address], 10/10/2024 19:08:40 10/10/20 24 10/10/2024 CELL COUNT WBC 586 /uL Not Available [facility] ([facility]Op [facility]) [address] [place] [address] [place], [address], 10/10/2024 19:08:40 10/10/20 24 10/10/2024 CELL COUNT RBC 6000 /uL Not Available [facility] (Pre-Op [facility]) [address] [place] [address] [place], [address], 10/10/2024 19:08:40 10/10/20 24 10/10/2024 CELL COUNT polynuclear 44.3 % Not Available [facility] ([facility]Op [facility]) [address] [place] [address] [place], [address], 10/10/2024 19:08:40 10/10/20 24 10/10/2024 CELL COUNT mononuclear 55.7 % ALL COUNT S PERFO RMED ON HEMAC YTOME TER ARE DONE IN [facility]. Not Available [facility] ([facility]) [address] [place] [address] [place], [address], 10/10/2024 19:08:40 10/10/20 24 10/10/2024 CELL COUNT note Unles s other duffy noted testi ng perfo rmed at: [facility] [address] [place] [address] Erwin osorio MD Not Available [facility] ([facility]) [address] [facility], [address], 10/10/2024 19:08:40 10/10/20 24 10/10/2024 CULTU RE BODY FLUID results [facility] 10-12 913 No Growt h at 2 Days [facility] 10-13 954 No Growt h at 3 Days Not Available [facility] ([facility]) [address] [place] [address] [place], [address], 10/13/2024 09:55:42 10/10/20 24 10/10/2024 CULTU RE BODY FLUID note Unles s other duffy noted testi ng perfo rmed at: [facility] [address] [place] [address] Erwin osorio MD Not Available [facility] ([facility]) [address] [place] [address] [place], [address], 10/13/2024 09:55:42 10/10/20 24 10/10/2024 GRAM STAIN source ABDOMI NAL Not Available [facility] ([facility]) [address] [place] [address] [place], [address], 10/10/2024 23:16:48 10/10/20 24 10/10/2024 GRAM STAIN organism #1 NO ORGANI SMS Not Available [facility] ([facility]) [address] [place] [address] [place], [address], 10/10/2024 23:16:48 10/10/20 24 10/10/2024 GRAM STAIN WBC NO WBC'S SEEN no WBC's seen Not Available [facility] ([facility]) [address] [place] [address] [place], [address], 10/10/2024 23:16:48 10/10/20 24 10/10/2024 GRAM STAIN yeast NONE SEEN none seen Not Available [facility] ([facility]) [address] [place] [address] [place], [address], 10/10/2024 23:16:48 10/10/20 24 10/10/2024 GRAM STAIN gram positive QC slide PASS PASS Not Available [facility] (Pre-Op Clinic) [address] [place] [address] [place], [address], 10/10/2024 23:16:48 10/10/20 24 10/10/2024 GRAM STAIN gram negative QC slide PASS PASS Not Available [facility] (Pre-Op Clinic) [address] [place] [address] [place], [id number], 10/10/2024 23:16:48 10/10/20 24 10/10/2024 GRAM STAIN note Unles s other duffy noted testi ng perfo rmed at: [facility] [address] [place] [address] Erwin osorio MD Not Available [facility] ([facility]) [address] [place] [address] [place], [id number], 10/10/2024 23:16:48 10/01/20 24 10/01/2024 US, liver [facility] [address] [place] [address] (Phone ) DAMIAN Kamara REPORT Name: MONIKA ORDAZ : 1959 Accoun t #: [id number] Age: 64 Years Patien t Type: Outpat ient Sex: F Access ion#: [id number] Exam Descri ption: US LIVER Exam [...] MONIKA ORDAZ : 1959 Accoun t #: [id number] Age: 64 Years Patien t Type: Outpat ient Sex: F Access ion#: [id number] Exam Descri ption: US LIVER Exam [...] MONTENEGRO Admitt ing Provid er: BEN MONTENEGRO [id number] [facility] ([facility] [address] [place] [address] [place], [id number], 10/12/2024 12:17:50 Result Notes None recorded. Problems Name Problem SNOMED Code Status Onset Date Resolution Date Notes Provider Name and Address Organization Details Recorded Time Hepatic encephalopathy 59529275 Active Sushma Mcguire null, [place] - [facility] [place] & [place] 4 10:36:45 Pulmonary edema 78919020 Active Sushma Mcgu[place] [facility] [place] [facility] [place] 4 10:36:45 Cirrhosis of liver 23584466 Active Sushma Mcgu[place] [facility] [place] [facility] [place] 4 10:36:45 Altered mental status 233591558 Active Sushma Mcgu[place], [place] [facility] [place] [facility] [place] 4 10:36:45 Urinary tract infectious disease 93459692 Active Sushma Mcgu[place] null, [place] [facility] [place] 4 10:36:45 Liver enzymes level above reference range 634030738 Active Sushma Mcguire null, [place] [facility] [place] [facility] [place] 4 10:36:45 Diabetes mellitus 83186372 Active Sushma Mcguire null, [place] [facility] [place] 4 10:36:45 Problem Notes None recorded. Procedures Surgical History Date Name Laterality Status Provider Name and Address Organization Details Recorded Time 2023 esophagogastroduodenoscopy completed Neyda Gee [facility] & [place] 4 15:51:40 Imaging Results None recorded. Procedure Notes None recorded. Medical Equipment None Reported. Allergies Allergen ID Allergen Name Allergen Category Reaction Reaction Severity Criticality Documentation Date Start Date Code Code System Note Provider Name and Address Organization Details Recorded Time 580167 No known allergy (situatio n) Not available Not available Not available Not available 09/14/2024 38592 6003 SNOMED Jen Ashely liana [facility] & [place] 4 08:45:56 No known drug allergies Medications [...] Updated DateTime 4 165.1 cm 32.4 kg/m2 85456.5 1 g 97.3 [degF] 98 % 98 % 73 /min Nandini Gerard [facility] & [place] 4 08:54:29 Date Recorded Body height Body mass index (BMI) Body weight Body temperature Oxygen saturation Oxygen saturation in Arterial blood by Pulse oximetry Heart rate Provider Name and Address Organization Details Last Updated DateTime 4 165.1 cm 32.8 kg/m2 34430.4 2 g 97.3 [degF] 93 % 93 % 85 /min Joanna Ochoa [facility] & [place] 4 08:28:44 Date Recorded Body height Body mass index (BMI) Body weight Body temperature Oxygen saturation Oxygen saturation in Arterial blood by Pulse oximetry Heart rate Provider Name and Address Organization Details Last Updated DateTime 4 165.1 cm 33.3 kg/m2 97365.4 7 g 97.6 [degF] 96 % 96 % 72 /min Jen Lund ID - NT [facility] & [place] 08:45:47 Social History None recorded. Functional Status [...] ICD10 Code Diagnosis IMO Codes Diagnosis Note [id number] MARIA GUADALUPE Fernandes [facility] [address] [place] [address] [place] AMBROSIO [phone] 02/13/2024 15:02:36 02/14/2024 11:54:15 Cirrhosis of liver 42281990 K74.60 patient is seen today in hospital [...] close follow up in 1 month. Ascites [id number] R18.8 Mild ascites noted on CT imaging while admitted to the hospital. Today she notes some worsening of her abdominal distention . We will plan for ascites ultrasound to determine if paracentes is is warranted. Hepatic encephalopathy 05770275 K76.82 Patient was initially admitted to the hospital for AMS on 02/02/2024 , ammonia found to be elevated with newly diagnosed cirrhosis. Lactulose and Xifaxan initiated with improvemen t. Recommend continue lactulose 30 mL t.i.d. to achieve at least 2-3 loose bowel movements per day. Continue Xifaxan. CT of [facility] men abnormal [id number] 1712786 R93.5 CT while inpatient noted possible peptic ulcer disease or sequela of pancreatit is. Lipase was normal, repeat CT imaging with no evidence of pancreatit is. Recommend EGD for further evaluation as well as for above recommenda tions. Continue b.i.d. PPI therapy. [id number] MARIA GUADALUPE Fernandes [facility] [address] [place] [address] [place] AMBROSIO [phone] [id number] 03/15/2024 13:46:43 03/16/2024 13:43:39 Cirrhosis of liver 06607129 K74.60 Patient seen today in follow-up for NAIDU cirrhosis. Continues lactulose, Xifaxan, Lasix and Aldactone. initial MELD was 15. Liver ultrasound from 02/26/2024 with no evidence of ascites. notes improvemen t lower extremity edema after starting diuretics. recommend low-sodium diet. She is scheduled for EGD on 04/04/2024 for evaluation of esophageal varices, PHG, GAVE. plan to follow-up shortly after. Hepatic encephalopathy 77782238 K76.82 Patient currently taking lactulose and Xifaxan. Patient's son states that they are not very consistent with the lactulose. Patient states she is not at her baseline mentally. Plan to recheck ammonia today. Discussed the importance of consistent daily doses of lactulose to achieve 2-3 loose bowel movements per day. CT of [facility] abnormal [id number] 5341303 R93.5 CT while inpatient noted possible peptic ulcer disease or sequela of pancreatit is. Lipase was normal, repeat CT imaging with no evidence of pancreatit is. Recommend EGD for further evaluation as well as for above recommenda tions. Continue b.i.d. PPI therapy. Type 2 arelis betbeverly mellitus [id number] Z79.4 Discussed importance of diabetic control with patient and her son, states they are following with [facility]. They have not been consistent with her insulin. CMP from 03/14/2024 with glucose 326. Recommend close follow-up with PCP endocrinol ogy for diabetes. [id number] MARIA GUADALUPE Fernandes [address] [place], [place] [phone] 05/23/2024 10:16:20 05/23/2024 14:11:10 Cirrhosis of liver 82536157 K74.60 from NAIDU. History of decompensa tion [...] s with patient and son. Hepatic encephalopathy 50251419 K76.82 Patient currently taking lactulose and Xifaxan. has not been taking lactulose as directed given diarrhea. Her ammonia from 03/15/2024 was 92. Recommend lactulose 15 mL b.i.d or titrated to achieve 2-3 loose bowel movements per day. Esophageal varices 51287 008 I85.00 Mild grade 1-2 esophageal varices noted on EGD from 04/04/2024 . These were not banded. She is hypotensiv e in the clinic today, as such recommend against beta bam therapy. I have advised her to monitor her bps at home and we will rediscuss next visit. [id number] Montse Dent DPM [facility] [address] [place] [address] Drive,[facility] [address] [place] [address] 07/17/2024 09:42:12 07/17/2024 10:39:39 Disorder of nervous system due to type 2 diabetes mellitus [id number] E11.49 Performed/ updated lower extremity neurovascu lar [...] today. See order form for details. Callosity [id number] L84 Filed with [employer] maile. Monitor for worsening. Counseled regarding routine maintenanc e. Recommend appropriat e shoe gear with ambulation , even in the home. Consider addition of offloading / padding to reduce recurrence of hyperkerat osis. 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 Offered routine care, pt declines. Reports she can manage well enough herself. Acquired c avus deformity of foot 07668336 M21.6X1 M21.6X2 [id number] MARIA GUADALUPE [facility] [address] [place] [address] [address] [place] [address] 07/20/2024 08:33:36 07/20/2024 10:49:37 Cirrhosis of liver 84640620 K74.60 Secondary to NAIDU. History of decompensa [...] see her back in short-term follow-up [facility] [id number] R18.8 CT from 07/17/2024 noted large volume [...] diet was discussed with her. Hepatic encephalopathy [id number] K76.82 Patient currently taking lactulose and Xifaxan. Ammonia from 07/17/2024 was less than 9. Continue current dosing. Type 2 arelis betes mellitus 69869390 Z79.4 Poorly controlled . She states that [...] compliance with her medication s Esophageal varices 17606 008 I85.00 Mild grade 1-2 esophageal varices noted on EGD from 04/04/2024 . These were not banded. she is not a good candidate for beta-block er therapy given history of hypotensio n. [id number] MARIA GUADALUPE [facility] [address] [place] [address] 08/03/2024 08:16:56 08/07/2024 12:16:17 Cirrhosis of liver 47674927 K74.60 Secondary to NAIDU. History of decompensa [...] due for repeat liver ultrasound . [facility] 449873163 R18.8 CT from 07/17/2024 noted large volume [...] . Gastroesop hageal reflux disease without esophagitis 495487597 K21.9 patient reports some increased reflux in the distal symptoms since her onset of ascites. Recommend starting PPI therapy [id number] MARIA GUADALUPE [facility] [address] [place] [address] 09/14/2024 08:15:28 09/14/2024 14:29:18 Cirrhosis of liver 84738444 K74.60 Secondary to NAIDU. History of decompensa [...] and send new labs to . [facility] 524373216 R18.8 Last paracentes is performed 09/12/2024 with 8 L removed. Reports having 8 L removed the week prior as well. Recommend continue weekly paracentes is if needed, continue Lasix 40 b.i.d. spironolac tone 100 b.i.d. Hepatic encephalopathy 04555302 K76.82 Patient currently taking lactulose and Xifaxan. Ammonia from 07/17/2024 was less than 9. No asterixis on exam. Vomiting 815667730 R11.1 0 Patient with projectile vomiting x2 in clinic today. Given symptoms as well as noticeable jaundice recommend ER evaluation . Will follow up on this [id number] Montse Dent DPM [facility] [address] [place] [address],[facility] [address] [place] [address] 09/14/2024 10:08:38 09/18/2024 09:53:56 Disorder of nervous system due to type 2 diabetes mellitus 437325242 E11.49 Diabetic shoes right and left and [...] DME dispensed by Catrachita Clements CMA. Callosity 190067953 L84 Acquired c avus deformity of right foot [id number] 497721 M21.6X1 Acquired c avus deformity of left foot 2519848206 081778 M21.6X2 Health Concerns Section Related Observation LastModified by Organization Detai ls LastModified Time None Recorded Concern Status LastModified by Organization Details LastModified Time None Recorded Advance Directives Directive None Recorded Payers Insurance Date Sequence Insurance Name Policy Number Policy Ochoa Covered Member ID Ochoa Member ID Guarantor Name 09/17/2024 1 [employer] (MEDICARE REPLACEMENT/ ADVANTAGE - PPO) [id number] [facility]/10/[facility] [employer] (MEDICARE REPLACEMENT/ ADVANTAGE - PPO) [id number] Monika [facility] [id number] [facility] 09/10/2024 1 [employer] (PPO) [id number] Monika [facility] [id number] [facility] 09/10/2024 1 [employer] [id number] Monika [facility] [id number] [facility] 09/11/2024 2 MEDICAID-[facility] - FFS/TRADITIO NAL [facility] [id number] [facility] 09/10/2024 2 [place] Mon[facility] [id number] [facility] Notes Date Note Type Note Provider Name [...] neuropathy.New patient, self referred. PCP: Dr. Antonio ([facility])Last PCP visit: May 2024Last reported BS: 181 mg/dl Montse Dent DPM [address] [place] [address], [address], [address], [place] - [place] - [place] & [place] 07/20/2024 09:29:47 07/20/2024 text/html This is a [...] is around 250. MARIA GUADALUPE [facility] [address], [address], [place], [address], [facility] & [place] 07/20/2024 10:48:38 08/03/2024 text/html This is a [...] GUADALUPE Fernandes [address], [address], [place], [address], [facility] & [place] 08/06/2024 11:10:22 09/14/2024 text/html This is a [...] pretty well controlled. MARIA GUADALUPE [facility] [address], [address], [place], [address], [facility] & [place] 09/14/2024 10:06:01 09/14/2024 text/html Patient presents for dispensal of 1 pair of diabetic shoes and 3 pair of diabetic accommodative inserts. Montse Dent DPM [address], [address], [place], [address], [place] - [place] & [place] 09/14/2024 12:19:18 OBGyn Episode No OBEpisode recorded.
--- OUTSIDE RECORDS SUMMARY | 2025-10-02 08:03 | XMS_ITS | Data Portability ---
Author Organization [facility] Office Address [address] [address] Care Team Providers Care Lead Neurodiagnostic Technologist Name Role Phone ERYN PARKINSON Primary Care Provider [facility] RITA pizarro Provider Assessment Encounter [...] SUNITA Jurado MD [facility] (In House Lab), [facility] [place], [address], 3 16:41:24 drug screen, urine - Meds: NO CURRENT MEDS 2022 023 [email or web address] 1 Rosemarie Jurado MD [facility] (In House Lab), [facility] [place], [address], 3 12:54:43 drug screen, urine - Meds: 2022 023 nishant Jurado MD [facility] (In House Lab), [facility] [place], [address], 3 11:50:47 CBC w/ auto diff 2022 023 nishant Jurado MD [facility] (In House Lab), [facility] [place], [address], 3 07:38:35 hepatic function panel, serum 2022 023 SUNITA Jurado MD [facility] (In House Lab), [facility] [place], [address], 3 09:40:53 gamma-gluta myl transferase (ggt), serum 2022 023 SUNITA Jurado MD [facility] (In House Lab), [facility] [place], [address], 3 09:40:54 venipunctur e 2022 023 nishant Jurado MD [facility] (In House Lab), [facility], [place], [address], 3 07:38:43 Referral None recorded. Procedures medial branch block, lumbar (PROC) - l4/5, l5/S1 bilateral, dr joseph 2022 023 [email or web address] [facility], [address] [place] [address], [facility]. [address], [place], [address], 3 13:25:14 Surgeries None recorded. Imaging MRI, lumbar spine, w/o contrast 2022 023 [facility] (Imaging), [address] [facility], [place], [address], 3 17:05:25 Medication Orders hydrocodone 10 mg-acetamin ophen 325 mg tablet 2022 023 [facility], [address], [place], [address], 3 10:25:56 hydrocodone 10 mg-acetamin ophen 325 mg tablet 2022 023 [facility], [address] [place], [address], 3 10:25:55 hydrocodone 10 mg-acetamin ophen 325 mg tablet [address] [facility], [address] [place], [address], 3 10:21:09 hydrocodone 10 mg-acetamin ophen 325 mg tablet 2022 023 [facility], [address] [place], [address], 3 15:01:34 Patient TargetsNo targets recorded. Patient Instructions Encounter Date Encounter Id Patient Instructions Last Modified By Organization Details Last Modified Time 04/04/2023 [id number] Take medications EXACTLY as instructed. Call office for any problems DO NOT run out of medications and medications should last till next appointment. Notify office if going to be late or need to reschedule. [email or web address] Not available 03/28/2023 10:53:16 05/31/2023 [id number] Take medication as directed. Keep all appointments [...] Rosemarie Jurado MD [facility] (In House Lab) [address] [place] [address], [address], 11/27/2022 09:40:55 11/26/19 23 11/26/2022 CBC abnormal status high Not Available Genaro Jurado MD [facility] (In House Lab) [address] [place] [address], [address], 11/27/2022 09:40:55 11/26/19 23 11/26/2022 CBC abnormal status low Not Available Genaro Jurado MD [facility] (In House Lab) [address] [place] [address], [address], 11/27/2022 09:40:55 11/26/19 23 11/27/2022 GGT GGT 103 IU/L 0-60 high Not Available Rosemarie Jurado MD [facility] (In House Lab) [address] [place] [address], [address], 11/27/2022 09:40:54 11/26/19 23 11/27/2022 RENAL PANEL (10) glucose 317 mg/dL 70-99 high Not Available Rosemarie Jurado MD [facility] (In House Lab) [address] [place] [address], [address], 11/27/2022 09:40:54 11/26/19 23 11/27/2022 RENAL PANEL (10) BUN 10 mg/dL 8-27 Not Available Rosemarie Jurado MD [facility] (In House Lab) [address] [place], [address], 11/27/2022 09:40:54 11/26/19 23 11/27/2022 RENAL PANEL (10) creatinine 0.74 mg/dL 0.57-1 .00 Not Available Rosemarie Jurado MD [facility] (In House Lab) [address] [place], [address], 11/27/2022 09:40:54 11/26/19 23 11/27/2022 RENAL PANEL (10) BUN/creatini ne ratio 14 12-28 Not Available Genaro Jurado MD [facility] (In House Lab) [address] [place], [address], 11/27/2022 09:40:54 11/26/19 23 11/27/2022 RENAL PANEL (10) sodium 139 mmol/ L 134-14 4 Not Available Rosemarie Jurado MD [facility] (In House Lab) [address] [place] [address], [address], 11/27/2022 09:40:54 11/26/19 23 11/27/2022 RENAL PANEL (10) potassium 4.4 mmol/ L 3.5-5. 2 Not Available Rosemarie Jurado MD [facility] (In House Lab) [address] [place], [address], 11/27/2022 09:40:54 11/26/19 23 11/27/2022 RENAL PANEL (10) chloride 101 mmol/ L 96-106 Not Available Rosemarie Jurado MD [facility] (In House Lab) [address] [place], [address], 11/27/2022 09:40:54 11/26/19 23 11/27/2022 RENAL PANEL (10) carbon dioxide, total 25 mmol/ L 20-29 Not Available Rosemarie Jurado MD [facility] (In House Lab) [address] [place], [address], 11/27/2022 09:40:54 11/26/19 23 11/27/2022 RENAL PANEL (10) calcium 8.7 mg/dL 8.7-10 .3 Not Available Rosemarie Jurado MD [facility] (In House Lab) [address] [place] [address], [address], 11/27/2022 09:40:54 11/26/19 23 11/27/2022 RENAL PANEL (10) phosphorus 3.9 mg/dL 3.0-4. 3 Not Available Rosemarie Jurado MD [facility] (In House Lab) [address] [place] [address], [address], 11/27/2022 09:40:54 11/26/1911/27/2022 RENAL PANEL (10) albumin 3.7 g/dL 3.8-4. 9 low Not Available Rosemarie Jurado MD [facility] (In House Lab) [address] [place] [address], [address], 11/27/2022 09:40:54 11/26/1911/27/2022 HEPAT IC FUNCT ION PANEL (7) protein, total 7.2 g/dL 6.0-8. 5 Not Available Rosemarie Jurado MD [facility] (In House Lab) [address] [place] [address], [address], 11/27/2022 09:40:53 11/26/1911/27/2022 HEPAT IC FUNCT ION PANEL (7) bilirubin, total 1.3 mg/dL 0.0-1. 2 high Not Available Rosemarie Jurado MD [facility] (In House Lab) [address] [place] [address], [address], 11/27/2022 09:40:53 11/26/19 23 11/27/2022 HEPAT IC FUNCT ION PANEL (7) bilirubin, direct 0.51 mg/dL 0.00-0 .40 high Not Available Rosemarie Jurado MD [facility] (In House Lab) [address] [place] [address], [address], 11/27/2022 09:40:53 11/26/19 11/27/2022 HEPAT IC FUNCT ION PANEL (7) alkaline phosphatase 182 IU/L 44-121 high Not Available Hilario Jurado MD [facility] (In House Lab) [address] [place], [address], 11/27/2022 09:40:53 11/26/19 23 11/27/2022 HEPAT IC FUNCT ION PANEL (7) AST (SGOT) 57 IU/L 0-40 high Not Available Rosemarie Jurado MD [facility] (In House Lab) [address] [place], [address], 11/27/2022 09:40:53 11/26/19 23 11/27/2022 HEPAT IC FUNCT ION PANEL (7) ALT (SGPT) 25 IU/L 0-32 Not Available Rosemarie Jurado MD [facility] (In House Lab) [address] [place], [address], 11/27/2022 09:40:53 11/26/19 23 11/26/2022 UDM LABCO [...] expec michael outco me. (emanavid [email or web address] gemen t@[employer] or call toll- free [phone]) . 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 Not Available Rosemarie Jurado MD [facility] (In House Lab) [address] [place], [address], 12/01/2022 09:42:55 11/26/19 23 11/27/2022 UDM LABCO RP-U1 0 UNBUN D+ALC +SVT amphetamines screen, urine Negati ve NG/mL cutoff =1000 Not Available Rosemarie Jurado MD [facility] (In House Lab) [address] [place] [address], [address], 12/01/2022 09:42:55 11/26/19 23 11/27/2022 UDM LABCO RP-U1 0 UNBUN D+ALC +SVT barbiturates screen, urine See Final Result s NG/mL cutoff =200 Not Available Rosemarie Jurado MD [facility] (In House Lab) [address] [place] [address], [address], 12/01/2022 09:42:55 11/26/19 23 11/27/2022 UDM LABCO RP-U1 0 UNBUN D+ALC +SVT benzodiazepi lisbet screen, urine Negati ve NG/mL cutoff =200 Not Available Rosemarie Jurado MD [facility] (In House Lab) [address] [place] [address], [address], 12/01/2022 09:42:55 11/26/19 23 11/27/2022 UDM LABCO RP-U1 0 UNBUN D+ALC +SVT cannabinoid screen, urine Negati ve NG/mL cutoff =20 Not Available Rosemarie Jurado MD [facility] (In House Lab) [address] [place] [address], [address], 12/01/2022 09:42:55 11/26/19 23 11/27/2022 UDM LABCO RP-U1 0 UNBUN D+ALC +SVT cocaine (metab.) screen, urine Negati ve NG/mL cutoff =300 Not Available Rosemarie Jurado MD [facility] (In House Lab) [address] [place] [address], [address], 12/01/2022 09:42:55 11/26/19 23 11/27/2022 UDM LABCO RP-U1 0 UNBUN D+ALC +SVT opiate screen, urine Negati ve NG/mL cutoff =300 Opiat e test inclu hal Codei ne, Morph ine, Clayton morph one, Clayton codon e. Not Available Rosemarie Jurado MD [facility] (In House Lab) [address] [place] [address], [place], [address], 12/01/2022 09:42:55 11/26/19 23 11/27/2022 UDM LABCO RP-U1 0 UNBUN D+ALC +SVT 6-acetylmorp svitlana, urine Negati ve NG/mL cutoff =10 Not Available Rosemarie Jurado MD [facility] (In House Lab) [address] [place] [address], [address], 12/01/2022 09:42:55 11/26/19 23 11/27/2022 UDM LABCO RP-U1 0 UNBUN D+ALC +SVT oxycodone/ox ymorphone, urine Negati ve NG/mL cutoff =100 Test inclu hal Oxyco done and Oxymo rphon e Not Available Rosemarie Jurado MD [facility] (In House Lab) [address] [place] [address], [address], 12/01/2022 09:42:55 11/26/19 23 11/27/2022 UDM LABCO RP-U1 0 UNBUN D+ALC +SVT methadone screen, urine Negati ve NG/mL cutoff =300 Not Available Rosemarie Jurado MD [facility] (In House Lab) [address] [place] [address], [address], 12/01/2022 09:42:55 11/26/19 23 11/27/2022 UDM LABCO RP-U1 0 UNBUN D+ALC +SVT buprenorphin e, urine Negati ve NG/mL cutoff =10 Not Available Rosemarie Jurado MD [facility] (In House Lab) [address] [place], [address], 12/01/2022 09:42:55 11/26/1911/27/2022 UDM LABCO RP-U1 0 UNBUN D+ALC +SVT ethanol, urine Negati ve mg/dL cutoff =0.020 Not Available Rosemarie Jurado MD [facility] (In House Lab) [address] [place] [address], [address], 12/01/2022 09:42:55 11/26/19 23 11/27/2022 UDM LABCO RP-U1 0 UNBUN D+ALC +SVT creatinine, urine 262.9 mg/dL 20.0-3 00.0 Not Available Rosemarie Jurado MD [facility] (In House Lab) [address] [place], [address], 12/01/2022 09:42:55 11/26/19 23 11/27/2022 UDM LABCO RP-U1 0 UNBUN D+ALC +SVT pH, urine 6.2 4.5-8. 9 Not Available Rosemarie Jurado MD [facility] (In House Lab) [address] [place], [address], 12/01/2022 09:42:55 04/04/2004/04/2023 BENZO DIAZE TRE CONFI RMATI ON,UR INE abnormal status abnormal Not Available Genaro Jurado MD [facility] (In House Lab) [address] [place], [address], 04/11/2023 16:41:25 04/04/20 23 04/05/2023 UDM LABCO [...] michael outco me. (emai l-asim nmana gemen t@[employer] or call toll- free [phone]) . 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 Not Available Rosemarie Jurado MD [facility] (In House Lab) [address] [place], [address], 04/11/2023 16:41:24 04/04/20 23 04/07/2023 UDM LABCO RP-U1 0 UNBUN D+ALC +SVT amphetamines screen, urine Negati ve NG/mL cutoff =1000 Not Available Rosemarie Jurado MD [facility] (In House Lab) [address] [place] [address], [address], 04/11/2023 16:41:24 04/04/20 23 04/07/2023 UDM LABCO RP-U1 0 UNBUN D+ALC +SVT barbiturates screen, urine Negati ve NG/mL cutoff =200 Not Available Rosemarie Jurado MD [facility] (In House Lab) [address] [place] [address], [address], 04/11/2023 16:41:24 04/04/20 23 04/07/2023 UDM [facility] RP-U1 0 UNBUN D+ALC +SVT benzodiazepi lisbet screen, urine See Final Result s NG/mL cutoff =200 Not Available Rosemarie Jurado MD [facility] (In House Lab) [address] [place] [address], [address], 04/11/2023 16:41:24 04/04/20 23 04/07/2023 UDM LABCO RP-U1 0 UNBUN D+ALC +SVT cannabinoid screen, urine Negati ve NG/mL cutoff =20 Not Available Rosemarie Jurado MD [facility] (In House Lab) [address] [place] [address], [address], 04/11/2023 16:41:24 04/04/20 23 04/07/2023 UDM LABCO RP-U1 0 UNBUN D+ALC +SVT cocaine (metab.) screen, urine Negati ve NG/mL cutoff =300 Not Available Rosemarie Jurado MD [facility] (In House Lab) [address] [place] [address], [address], 04/11/2023 16:41:24 04/04/20 23 04/07/2023 UDM [facility] RP-U1 0 UNBUN D+ALC +SVT opiate screen, urine Negati ve NG/mL cutoff =300 Opiat e test inclu hal Codei ne, Morph ine, Clayton morph one, Clayton codon e. Not Available Rosemarie Jurado MD [facility] (In House Lab) [address] [place] [address], [address], 04/11/2023 16:41:24 04/04/20 23 04/07/2023 UDM LABCO RP-U1 0 UNBUN D+ALC +SVT 6-acetylmorp svitlana, urine Negati ve NG/mL cutoff =10 Not Available Rosemarie Jurado MD [facility] (In House Lab) [address] [place] [address], [address], 04/11/2023 16:41:24 04/04/20 23 04/07/2023 UDM [facility] RP-U1 0 UNBUN D+ALC +SVT oxycodone/ox ymorphone, urine Negati ve NG/mL cutoff =100 Test inclu hal Oxyco done and Oxymo rphon e Not Available Rosemarie Jurado MD [facility] (In House Lab) [address] [place] [address], [address], 04/11/2023 16:41:24 04/04/20 23 04/07/2023 UDM [facility]CO RP-U1 0 UNBUN D+ALC +SVT methadone screen, urine Negati ve NG/mL cutoff =300 Not Available Rosemarie Jurado MD [facility] (In House Lab) [address] [place] [address], [address], 04/11/2023 16:41:24 04/04/20 23 04/07/2023 UDM [facility] RP-U1 0 UNBUN D+ALC +SVT buprenorphin e, urine Negati ve NG/mL cutoff =10 Not Available Rosemarie Jurado MD [facility] (In House Lab) [address] [place] [address], [address], 04/11/2023 16:41:24 04/04/20 23 04/07/2023 UDM [facility] RP-U1 0 UNBUN D+ALC +SVT ethanol, urine Negati ve mg/dL cutoff =0.020 Not Available Rosemarie Jurado MD [facility] (In House Lab) [address] [place], [address], 04/11/2023 16:41:24 04/04/20 23 04/07/2023 UDM [facility] RP-U1 0 UNBUN D+ALC +SVT creatinine, urine 216.4 mg/dL 20.0-3 00.0 Not Available Rosemarie Jurado MD [facility] (In House Lab) [address] [place], [address], 04/11/2023 16:41:24 04/04/20 23 04/07/2023 [facility] RP-U1 0 UNBUN D+ALC +SVT pH, urine 6.8 4.5-8. 9 Not Available Rosemarie Jurado MD [facility] (In House Lab) [address] [place], [address], 04/11/2023 16:41:24 Result Notes None recorded. Problems Name Problem SNOMED Code Status Onset Date Resolution Date Notes Provider Name and Address Organization Details Recorded Time Chronic neck pain 816257177285 7 Active 2022 [facility] 10:56:03 Chronic back pain 917053526 Active 2022 [facility] 10:56:12 Pain of knee region 8855222009 Active 2022 bilateral [facility] 10:56:40 Deep venous thrombosi s 348699342 Active 2022 [facility] 10:57:25 Diabetes mellitus 15798200 Active 2022 [facility] 10:57:35 Chronic urinary tract infection 066406516 Active 2022 [facility] 10:57:48 Acid reflux 848260501 Active 2022 [facility] 10:57:58 Ulcer 602843429 Active 2022 [facility] 10:58:06 Obesity 605059066 Active 2022 [facility] 10:58:14 Irritable bowel syndrome 47398272 Active 2022 [facility] 10:58:23 Bilateral cataracts 35022404 Active 2022 [facility] 10:58:39 Sinusitis 90454282 Active 2022 [facility] 10:58:47 Hearing loss 48459062 Active 2022 [facility] 10:58:55 Sudden visual loss 24220714 Active 2022 [facility] 10:59:11 Temporoma ndibular joint disorder 92154901 Active 2022 [facility] 10:59:24 Has difficult y with speech 804668289 Active 2022 [facility] 10:59:34 Syncope 052545559 Active 2022 [facility] 11:40:54 Osteoarth ritis 956142546 Active 2022 [facility] 11:41:08 Carpal tunnel syndrome 85578206 Active 2022 [facility] 11:41:19 Degenerat ion of intervert ebral disc 55035866 Active 2022 [facility] 11:41:33 Headache 75324168 Active 2022 [facility] 11:41:41 Migraine 98838315 Active 2022 [facility] 11:41:48 Injury of head 86450667 Active 2022 [facility] 11:41:58 Chronic confusion 419266871 Active 2022 [facility] 11:42:08 Amnesia 85183616 Active 2022 [facility] 11:42:28 Asthma 765267920 Active 2022 [facility] 11:42:36 Sleep apnea 73067578 Active 2022 [facility] 3 11:42:44 Depressiv e disorder 86303210 Active 2022 [facility] 3 11:42:51 Anxiety 96442878 Active 2022 [facility] 3 [...] Address Organization Details Last Updated DateTime 3 11936.5 9 g 30.8 kg/m2 165.1 cm 97.9 [degF] 16 /min 80 /min 117/70 mm[Hg] [facility]ler [facility] 3 08:42:41 Date Recorded Body height Body temperature Respiratory rate Heart rate Body mass index (BMI) Body weight Systolic And Diastolic Provider Name and Address Organization Details Last Updated DateTime 3 165.1 cm 96.8 [degF] 16 /min 74 /min 32 kg/m2 52930.7 4 g 105/57 mm[Hg] Shwetha Lindquist audra [...] cm 97.5 [degF] 16 /min 32 kg/m2 33485.7 4 g 73 /min 99/59 mm[Hg] Shw[facility]a [facility] 3 10:18:56 Social History Question Answer Notes LastModified by [employer] ion Details LastModified Time Tobacco Smoking Status Never Smoker [facility] 11/25/2022 11:47:51 Are You Blind Or Do You Have Difficulty Seeing? Yes [email or web address] Information not available 11/26/2022 Are You Deaf Or Do You Have Serious Difficulty Hearing? Yes [email or web address] Information not available 11/26/2022 What Is The Highest Grade Or Level Of School You Have Completed Or The Highest Degree You Have Received? [id number] [email or web address] Information not available 11/26/2022 What Is Your Relationship Status? [email or web address] Information not available 11/25/2022 Do You Have Difficulty Walking Or Climbing Stairs? Yes [email or web address] Information not available 11/26/2022 Are You Currently In School? No [email or web address] Information not available 11/25/2022 Sex: Unknown Functional Status Question Answer Note LastModified by Organizat ion Details LastModified Time Do you use any illicit or recreational drugs? No [email or web address] Information not available 11/25/2022 What is your level of alcohol consumption? None [email or web address] Information not available 11/25/2022 Are you currently employed? No disabled since 2016 [email or web address] Information not available 11/25/2022 Are you able to walk independently without assistance or assistive devices? [email or web address] Information not available 11/26/2022 Do you have difficulty doing errands alone? Yes [email or web address] Information not available 11/26/2022 Are you able to care for yourself independently? Yes [email or web address] Information not available 11/26/2022 Do you have difficulty dressing, bathing, grooming, or toileting? No [email or web address] Information not available 11/26/2022 Mental Status Question Answer Note LastModified by Organizat ion Details LastModified Time Do you feel stressed (tense, restless, nervous, or anxious, or unable to sleep at night)? [id number] [email or web address] Information not available 11/26/2022 Do you have difficulty concentrating, remembering or making decisions? Yes [email or web address] Information no t available 11/26/2022 Family History Relationship Description Onset Age of this Age Resolved Age Notes LastModified by Organization Details LastModified Time Mother Disorder of thyroid gland [email or web address] Not available 08:44:08 Mother Diabetes mellitus [email or web address] Not available 08:44:40 Mother Arthritis [email or web address] Not ender ilable 11/26/2022 08:45:14 Father Diabetes mellitus [email or web address] Not available 08:44:40 Father Arthritis [email or web address] Not ender ilable 11/26/2022 08:45:14 Sister Diabetes mellitus Not available 08:44:40 Sister Arthritis [email or web address] Not ender ilable 11/26/2022 08:45:14 Son Diabetes mellitus [email or web address] Not available 08:44:40 Son Arthritis [email or web address] Not ender ilable 11/26/2022 08:45:15 Son Arthritis [email or web address] Not ender ilable 11/26/2022 08:45:15 Medical History Condition Response Coronary Artery Disease Y Gout Y Head Trauma/Injury Y Hernia N Thyroid Problems N Depression Y COPD N Anemia N MVA N Ulcers N Heart Attack (DE) N Diabetes Y Anxiety Disorder Y Bleeding [...] ICD10 Code Diagnosis IMO Codes Diagnosis Note [id number] Allen Joseph MD [address] [place] [id number] 4 11/26/2022 07:50:17 12/08/2022 17:05:25 Long-term current use of opiate analgesic drug [id number] 09514 Z79.891 Diagnostic /Lab: Order Presumptiv e UDT [...] . Spinal keith nosis of lumbar region 90170188 M48.062 Neuritis d ue to rupture of lumbar intervertebral disc 0480233022 M51.16 [id number] Allen Joseph MD [address] [place] [address] 4 01/28/2023 10:04:09 02/14/2023 07:48:53 Long-term current use of opiate analgesic drug 2288227162 35715 Z79.891 Diagnostic /Lab: Order Presumptiv e UDT [...] and carisoprod ol). Spondylosi s without myelopathy 69041124 M47.9 Pain of le ft knee region 5731362320 44067 M25.618 [id number] ANAMARIA GARCIA MD [address] [place] [id number] 4 04/04/2023 14:41:31 04/04/2023 15:22:14 Long-term current use of opiate analgesic drug 7010450708 11474 Z79.891 Lumbar spondylosis 25867 0009 M47.918 [id number] ANAMARIA GARCIA MD [address] [place] [phone] 4 05/31/2023 10:10:07 06/02/2023 10:56:00 Osteoarthritis 100408763 M19.90 Lumbar spondylosis 78062 0009 M47.896 Long-term current use of opiate analgesic drug 9642431301 55866 Z79.891 Diagnostic /Lab: Order Presumptiv e UDT [...] (MEDICARE REPLACEMENT/A DVANTAGE - PPO) Gabi Zimmer [id number] Gabi Zimmer Notes Date Note Type Note [...] [facility] 01/28/2023 11:22:24 04/04/2023 text/html [facility] report reviewed and compliant. Fell [...] does want any injections. ANAMARIA GARCIA MD [address] [facility], [place], [address], [facility] 04/04/2023 15:01:36 05/31/2023 text/html [facility] report reviewed and compliant . She had a bladder stim put in yesterday. Pain is near the site. of insertions. Pain is intermittent.. Pain is intense and severe. Pain meds work ok ANAMARIA GARCIA MD [address] [facility], [place], [address], [facility] 05/31/2023 10:29:08 OBGyn Episode No OBEpisode recorded.
[2025-10-02 08:24] LABS: Microscopic, Urine URINE MICROSCOPIC (MICROSCOPIC)
[2025-10-02 08:29] LABS: Bilirubin,Urine Negative (Negative); Color,Urine YELLOW (Yellow); Glucose,Urine (UA) Negative (Negative); Ketones,Urine Negative (Negative); Leukocyte Esterase,Urine Negative (Negative); PH,Urine 6.0 (5.0-8.5); Protein,Urine Negative (Negative); Specific Gravity, Urine 1.015 (1.005-1.030); Urobilinogen,Urine 0.2 EU/dl (0.2)
[2025-10-02 09:16] LABS: RBC,Urine Occasional #/hpf (0-3); Squamous Epithelial Cell,Urine Occasional #/hpf (0-5); WBC,Urine Occasional #/hpf (0-3)
[2025-10-02 09:17] LABS: Bacteria,Urine Trace /lpf
== END 2025-10-02 23:59 | disposition home or self-care (01) ==
LOC: LAB.DROPOF 08:00
PROVIDERS: PCP Internal Medicine Adolescent Medicine; Visit Provider Internal Medicine Adolescent Medicine
DX: N18.32 Chronic kidney disease, stage 3b (principal)
CPT/HCPCS: 81001; 87086

== ENCOUNTER 2025-10-10 11:12 | Emergency (ER) | payer MEDICARE, MEDICAID, SELFPAY ==
[2025-10-10] VITALS (70 sets, daily range): BP systolic 66–111; BP diastolic 32–66; PULSE 43–74; RESP 9–20; TEMP 36.7–37; O2SAT 95–100; BMI 29.2
--- NOTE | 2025-10-10 11:14 | PC.NURSE ---
DR HATFIELD AT BEDSIDE
--- NOTE | 2025-10-10 11:20 | ECG_ITS ---
APPROVED REPORT Exam: Resting ECG HR:58 bpm ECG Measurements Heart Rate 58 AXES RI 153 P 51 QRSd 98 QRS -44 QT 380 T 9 QTc 376 Conclusion SINUS BRADYCARDIA LEFT AXIS DEVIATION [QRS AXIS < -30] LOW QRS VOLTAGE IN PRECORDIAL LEADS [QRS DEFLECTION < 1.0 mV IN CHEST LEADS] PATTERN CONSISTENT WITH PULMONARY DISEASE NONSPECIFIC T-WAVE ABNORMALITY ABNORMAL ECG UNCONFIRMED REPORT Sinus bradycardia. Ventricular rate [address] elevation or depression. QTc of 376 Electronically signed by : ENID HATFIELD, 10/10/2025 14:23:25
--- NOTE | 2025-10-10 11:22 | PC.NURSE ---
FSBS 371. RN Aware
--- NOTE | 2025-10-10 11:36 | HMH.EDGENADL ---
Discharge Plan Disposition Patient Disposition: Xfer Other Referrals Follow up/Referrals: Bari Giraldo MD [Primary Care Provider, Internal Medicine] - See instructions Clinical Impressions Clinical Impression: CARLOTTA (acute kidney injury), Acute hypotension, Hyperphosphatemia, Acidosis, lactic Print Language Print Language: Swedish Discharge ED Provider: Xander Betts General Adult HPI General Chief complaint: Dizziness Stated complaint: Hypotension Time Seen by Provider: 10/10/25 11:13 Mode of Arrival: EMS Source of Information: Patient and EMS Limitations: No Limitations History of Present Illness HPI narrative: Gabi Zimmer is a 65F with a history of decompensated cirrhosis, CARLOTTA, who is DNR and presents to the emergency department via EMS from [place] [facility] for low blood pressure. Per patient, she was sitting at home waiting to be taken to the [facility] for her weekly paracentesis for her cirrhosis when she felt lightheaded. She denies any chest pain. She states that she is chronically short of breath that is not worse than normal. She does state that her abdomen is swollen and somewhat tender, however this is typical for her when she has to have fluid drained off. She denies any fevers or chills. Blood pressure at the outside facility was 70s systolic. With EMS, she was persistently hypotensive with blood pressures in the 70s systolic. Patient states that she is on midodrine for low blood pressure and that on normal systolic blood pressure of hers in the 90s. Related Data Allergies Allergy/AdvReac Type Severity Reaction Status Date / Time No Known Allergies Allergy Verified 06/23/25 17:[address] [facility] Disclaimer: The information contained in this section may have been updated after the patient was seen, as this information can be updated by other users. Social History (Updated 06/23/25 @ 21:33 by Kandice Maldonado APRN) Smoking Status: Unknown if ever smoked alcohol intake: never current occupational status: unemployed Travel in the last 8 weeks?: None Have you lived/traveled outside US in past 30 days?: No Contact w/someone who lives/traveled outside US past 30 days?: No Exposure to someone with infectious disease in past 14 days?: No Do you have a fever (greater than 100.4 F or 38 C)?: No Have you tested positive for COVID-19?: No Exposed to someone with COVID-19 in past 14 days?: No Do you have a sore throat?: No Do you have a cough?: No Do you have any weakness?: No Do you have any diarrhea?: No Are you experiencing any unusual bleeding?: No Do you have any muscle aches/pain?: No Do you have any abdominal pain?: No Are you experiencing loss of taste or smell?: No ROS Obtained: Yes Systems reviewed as appropriate & no additional complaints except as documented Physical Exam General General appearance: alert Comment: Chronically ill-appearing Head Head exam: atraumatic Eye Eye exam: Present normal appearance, scleral icterus and jaundice ENT ENT exam: Present normal external ear exam Neck Neck exam: Present full ROM Chest Chest inspection: Present symmetric chest wall rise Respiratory Respiratory exam: Present normal lung sounds bilaterally; Absent respiratory distress, wheezes or stridor Cardiovascular Cardiovascular exam: Present regular rate and normal rhythm Abdominal Exam Abdominal exam: Present soft, distention, tenderness (Mild diffuse tenderness) and scar; Absent guarding Extremities Exam Extremities exam: Present normal inspection and edema (Trace distal lower extremity edema bilaterally) Back Exam Back exam: Present normal inspection Neurological Exam Neurological exam: Present alert and oriented X3 Psychiatric Psychiatric exam: Present normal affect Skin Skin exam: Present warm and dry Medical Decision Making Medical Records Screening: Per USPSTF and CDC recommendations, given the prevalence of disease in our region, it is our hospital?s policy to screen for HIV and viral Hepatitis for all patients aged 18 and over and those with ongoing risk factors. Valente Inquiry Pt receiving controlled substance: No Vital Signs: 10/10/25 11:12 10/10/25 11:33 10/10/25 11:37 Temperature 98.1 F Temperature Source Oral Pulse Rate 58 L 61 Pulse Rate [Left Radial] 60 Respiratory Rate 20 14 Blood Pressure 74/44 L 76/45 L Blood Pressure [Right Arm] 66/32 L Blood Pressure Mean Blood Pressure Mean [Right Arm] 43 02 Sat by Pulse Oximetry 97 98 98 Oxygen Delivery Method Room Air Room Air Room Air 10/10/25 11:40 10/10/25 11:45 10/10/25 11:50 Temperature Temperature Source Pulse Rate 61 61 61 Pulse Rate [Left Radial] Respiratory Rate 17 14 15 Blood Pressure 78/48 L 79/49 L 75/46 L Blood Pressure [Right Arm] Blood Pressure Mean Blood Pressure Mean [Right Arm] 02 Sat by Pulse Oximetry 98 98 98 Oxygen Delivery Method Room Air Room Air Room Air 10/10/25 11:55 10/10/25 12:10 10/10/25 12:15 Temperature Temperature Source Pulse Rate 62 74 65 Pulse Rate [Left Radial] Respiratory Rate 15 14 Blood Pressure 79/47 L 68/43 L 74/41 L Blood Pressure [Right Arm] Blood Pressure Mean 54 50 48 Blood Pressure Mean [Right Arm] 02 Sat by Pulse Oximetry 98 95 97 Oxygen Delivery Method Room Air Room Air Room Air 10/10/25 12:20 10/10/25 12:25 10/10/25 12:30 Temperature Temperature Source Pulse Rate 62 65 60 Pulse Rate [Left Radial] Respiratory Rate 12 13 13 Blood Pressure 72/41 L 72/41 L 82/44 L Blood Pressure [Right Arm] Blood Pressure Mean 49 48 Blood Pressure Mean [Right Arm] 02 Sat by Pulse Oximetry 100 100 99 Oxygen Delivery Method Room Air Room Air Room Air 10/10/25 12:35 10/10/25 12:40 10/10/25 12:45 Temperature Temperature Source Pulse Rate 46 L 61 48 L Pulse Rate [Left Radial] Respiratory Rate 12 12 14 Blood Pressure 67/40 L 79/45 L 83/52 L Blood Pressure [Right Arm] Blood Pressure Mean Blood Pressure Mean [Right Arm] 02 Sat by Pulse Oximetry 100 98 100 Oxygen Delivery Method Room Air Room Air Room Air 10/10/25 12:50 10/10/25 12:55 10/10/25 13:00 Temperature Temperature Source Pulse Rate 58 L 44 L 59 L Pulse Rate [Left Radial] Respiratory Rate 13 12 Blood Pressure 93/57 L 89/51 L 87/55 L Blood Pressure [Right Arm] Blood Pressure Mean Blood Pressure Mean [Right Arm] 02 Sat by Pulse Oximetry 99 99 99 Oxygen Delivery Method Room Air Room Air Room Air 10/10/25 13:05 10/10/25 13:10 10/10/25 13:15 Temperature Temperature Source Pulse Rate 58 L 65 65 Pulse Rate [Left Radial] Respiratory Rate 14 12 12 Blood Pressure 91/57 L 85/56 L 87/52 L Blood Pressure [Right Arm] Blood Pressure Mean Blood Pressure Mean [Right Arm] 02 Sat by Pulse Oximetry 99 98 98 Oxygen Delivery Method Room Air 10/10/25 13:30 10/10/25 13:35 10/10/25 13:40 Temperature Temperature Source Pulse Rate 60 59 L 59 L Pulse Rate [Left Radial] Respiratory Rate 13 14 13 Blood Pressure 92/52 L 93/57 L 90/57 L Blood Pressure [Right Arm] Blood Pressure Mean Blood Pressure Mean [Right Arm] 02 Sat by Pulse Oximetry 98 99 98 Oxygen Delivery Method 10/10/25 13:45 10/10/25 13:50 10/10/25 13:55 Temperature Temperature Source Pulse Rate 59 L 58 L 59 L Pulse Rate [Left Radial] Respiratory Rate 12 12 Blood Pressure 83/55 L 95/59 L 93/54 L Blood Pressure [Right Arm] Blood Pressure Mean Blood Pressure Mean [Right Arm] 02 Sat by Pulse Oximetry 99 99 99 Oxygen Delivery Method Room Air Room Air 10/10/25 14:00 10/10/25 14:05 10/10/25 14:10 Temperature Temperature Source Pulse Rate 57 L 57 L 44 L Pulse Rate [Left Radial] Respiratory Rate 12 10 L 10 L Blood Pressure 90/58 L 92/55 L Blood Pressure [Right Arm] Blood Pressure Mean Blood Pressure Mean [Right Arm] 02 Sat by Pulse Oximetry 99 99 99 Oxygen Delivery Method 10/10/25 14:15 10/10/25 14:20 10/10/25 14:25 Temperature Temperature Source Pulse Rate 44 L 44 L 59 L Pulse Rate [Left Radial] Respiratory Rate 14 13 16 Blood Pressure 85/50 L 87/51 L 99/60 L Blood Pressure [Right Arm] Blood Pressure Mean Blood Pressure Mean [Right Arm] 02 Sat by Pulse Oximetry 99 99 99 Oxygen Delivery Method 10/10/25 14:30 10/10/25 14:35 10/10/25 14:40 Temperature Temperature Source Pulse Rate 44 L 62 44 L Pulse Rate [Left Radial] Respiratory Rate 11 L 14 13 Blood Pressure 84/50 L 93/59 L 86/51 L Blood Pressure [Right Arm] Blood Pressure Mean Blood Pressure Mean [Right Arm] 02 Sat by Pulse Oximetry 98 98 98 Oxygen Delivery Method 10/10/25 14:45 Temperature Temperature Source Pulse Rate 44 L Pulse Rate [Left Radial] Respiratory Rate 11 L Blood Pressure 86/50 L Blood Pressure [Right Arm] Blood Pressure Mean Blood Pressure Mean [Right Arm] 02 Sat by Pulse Oximetry 99 Oxygen Delivery Method Lab Data Lab Results 10/10/25 11:28: WBC 3.5 L, RBC 2.70 L, Hgb 8.8 L, Hct 26.4 L, MCV 97.8, MCH 32.6 H, MCHC 33.3, RDW 15.5, Plt Count 57 L, MPV 10.6 H, Neut % (Auto) 60.8, Lymph % (Auto) 18.7, Gregg % (Auto) 13.8 H, Eos % (Auto) 5.5, Baso % (Auto) 0.9, Neut # (Auto) 2.1, Lymph # (Auto) 0.7, Gregg # (Auto) 0.5, Eos # (Auto) 0.2, Baso # (Auto) 0.0, PT 17.1 H, INR 1.59 H, APTT 34.1 H, Sodium 136, Potassium 3.3 L, Chloride 101, Carbon Dioxide 21 L, Anion Gap 17.3 H, BUN 62 H, Creatinine 3.50 H, Estimated GFR 13 L*, Est GFR ( Amer) 16 L*, Glucose 228 H, Calcium 8.0 L, Phosphorus 5.6 H, Magnesium 2.3, Total Bilirubin 2.1 H, AST 53 H, ALT 25, Alkaline Phosphatase 157 H, Ammonia 27, Troponin I < 0.01, C-Reactive Protein 13.6 H, NT-Pro-B Natriuret Pep 828 H, Total Protein 6.0 L, Albumin 2.7 L, Globulin 3.3 H, Albumin/Globulin Ratio 0.8 L, Lipase 236, Procalcitonin 0.388 10/10/25 11:33: VBG pH 7.24 L, VBG pCO2 44.6, VBG pO2 48.6 H, VBG HCO3 18.5 L, VBG Total CO2 19.8 L, VBG O2 Saturation 77.4 H, VBG Base Excess -9.0 L, VBG Lactic Acid 3.9 H 10/10/25 13:27: Urine Color Yellow, Urine Appearance Clear, Urine pH 5.5, Ur Specific [place] 1.020, Urine Protein Trace, Urine Glucose (UA) Negative, Urine Ketones Negative, Urine Blood 1+ A, Urine Nitrate Negative, Urine Bilirubin Negative, Urine Urobilinogen 0.2, Ur Leukocyte Esterase 1+ A, Urine RBC 3-5, Urine WBC 5-10, Ur Squamous Epith Cells 10-20, Urine Bacteria 2+ 10/10/25 11:28 10/10/25 11:28 Orders (Tests/Meds): ED MEDICATIONS Generic Name Dose Route Start Last Admin Trade Name Freq PRN Reason Stop Dose Admin Ceftriaxone Sodium 2 gm/ 100 mls @ 200 mls/hr 10/10/25 11:45 10/10/25 13:36 Sodium Chloride IV 10/20/25 11:44 Infused Q24H MEAGAN Infusion Norepinephrine/Dextrose 8 mg in 250 mls @ 3.75 mls/hr 10/10/25 12:00 10/10/25 13:37 Levophed 8mg/250ml-D5w Premix IV 11/09/25 11:59 12 mcg/min .Q24H MEAGAN 22.5 mls/hr Protocol Titration 2 MCG/MIN Discontinued Medications Generic Name Dose Route Start Last Admin Trade Name Freq PRN Reason Stop Dose Admin Lactated Ringer's 500 mls @ 999 mls/hr 10/10/25 12:00 10/10/25 12:55 Lactated Ringer's 500ml IV 10/10/25 12:30 Infused .Q31M ONE Infusion ORDERS Category Date Time Status CT abdomen pelvis wo con Stat Cat Scan 10/10/25 11:[address] chest wo con Stat Cat Scan 10/10/25 11:56 Completed Consult to Case Management [CONS] Stat Cons 10/10/25 14:03 Active POCUS Point of Care (ER Only) Stat Exams 10/10/25 11:18 Completed Ammonia Stat Lab 10/10/25 11:28 Completed BNP [NT Pro Brain Natriuretic Pep.] Stat Lab 10/10/25 11:28 Completed CBC w/Auto Diff [Complete Blood Count Auto Diff] Stat Lab 10/10/25 11:28 Completed CMP [Comprehensive Metabolic Panel] Stat Lab 10/10/25 11:28 Completed CRP [C-Reactive Protein] Stat Lab 10/10/25 11:28 Completed Lipase Stat Lab 10/10/25 11:28 Completed Magnesium Stat Lab 10/10/25 11:28 Completed PHOS [Phosphorous] Stat Lab 10/10/25 11:28 Completed PT INR [Prothrombin Time INR] Stat Lab 10/10/25 11:28 Completed PTT [Activated Partial Thrombo Time] Stat Lab 10/10/25 11:28 Completed Procalcitonin Stat Lab 10/10/25 11:28 Completed Troponin I Q3H Lab 10/10/25 14:45 Ordered Troponin I Q3H Lab 10/10/25 17:45 Ordered Troponin I Stat Lab 10/10/25 11:28 Completed UA [Urinalysis and Microscopic] Stat Lab 10/10/25 13:27 Completed Blood Culture Stat Micro 10/10/25 11:20 Received Urine Culture Stat Micro 10/10/25 13:27 Received VBG [Venous Blood Gas] Stat RT 10/10/25 11:33 Completed Medical Decision Narrative: Gabi Zimmer is a 65F with a history of decompensated cirrhosis, CARLOTTA, who is DNR and presents to the emergency department via EMS from [place] [facility] for low blood pressure. Per patient, she was sitting at home waiting to be taken to the [facility] for her weekly paracentesis for her cirrhosis when she felt lightheaded. She denies any chest pain. She states that she is chronically short of breath that is not worse than normal. She does state that her abdomen is swollen and somewhat tender, however this is typical for her when she has to have fluid drained off. She denies any fevers or chills. Blood pressure at the outside facility was 70s systolic. With EMS, she was persistently hypotensive with blood pressures in the 70s systolic. Patient states that she is on midodrine for low blood pressure and that on normal systolic blood pressure of hers in the 90s. On arrival, patient was initially hypotensive with systolic blood pressures in the 60s and improved to 76/45 with continued IV fluids. She is afebrile. Heart rate within normal limits. Oxygen saturation 97%. Physical exam, stated above, revealed a chronically ill-appearing female in no respiratory distress. She is alert and answering questions appropriately and moving all extremities. Cardiopulmonary exam reveals no wheezing, rales or rhonchi. Abdomen is distended and diffusely tender but no peritonitis or guarding. Large well-healed surgical scar over the right abdomen. Patient states that this is from a prior cholecystectomy and appendectomy. Differential diagnosis includes, but is not limited to: Sepsis, SBP, pneumonia, pleural effusion, dehydration, electrolyte derangement, ACS, pulmonary embolism, among others. The most morbid conditions were considered and workup was based on these. [id number] abdominal ultrasound was performed by me personally to evaluate for ascitic fluid volume. Patient does have some ascites, however there is not a large enough pocket for me to comfortably perform diagnostic paracentesis. See procedure note for details. Workup in the emergency department included: Blood culture x 2, VBG with lactate, CBC with differential, CMP, CRP, procalcitonin, magnesium, phosphorus, BNP, troponin, EKG, ammonia. Initially was going to do CT pulmonary embolism protocol as well as CT abdomen pelvis with IV contrast, however given patient's significant renal impairment, will avoid IV contrast to prevent furthering poor kidney function with contrast-induced nephropathy. EKG was interpreted by me personally and showed a sinus bradycardia with ventricular rate of [address] elevation or depression. QTc normal at 376 Patient's workup shows leukopenia with white blood cell count of 3.5, 60.8% neutrophils. Hemoglobin chronically low at 8.8 and hematocrit of 26.4, near baseline. INR 1.59, PT 17.1, APTT 34, VBG shows a metabolic acidosis with pH of 7.24, pCO2 44.6, Lactate elevated 3.9, bicarb low at 19.8, pCO2 normal at 44.6. Mildly low potassium at 3.3 but sodium normal at 136. CARLOTTA with creatinine of 3.5 and BUN of 62 (baseline creatinine appears to be around 1.5), glucose of 228. Phosphorus mildly elevated at 5.6, magnesium normal at 2.3. Bilirubin chronically elevated 2.1, AST near baseline of 53, ALT normal at 25, alk phos of 157, initial troponin less than 0.01. CRP is elevated at 13.6, BNP elevated at 828. Lipase normal at 236. Normal at 0.388. CRP is elevated at 13.6. Ammonia normal at 27. CT imaging was interpreted by me personally prior to official radiology read. Patient has bilateral pleural effusions on the dependent portion of the lungs, patient has ascitic fluid, around the liver and near the urinary bladder. No other acute findings within the abdomen on my interpretation. Study limited by noncontrasted CT scans. See final radiology report for details. Procalcitonin Patient did complain of some chest pain after norepinephrine was started. Repeat EKG shows continued sinus bradycardia but no changes from previous EKG. Patient states that she has not been urinating well recently and does not believe she can provide a urine sample. Will attempt a catheterized urine sample at this time. Will attempt to have patient transferred to the emergency of [place] as she will likely need an IR guided paracentesis and further management of her decompensated cirrhosis/CARLOTTA, which could be hepatorenal in nature. Patient's MELD Na score is 26, placing her at 19.6% estimated 3-month mortality. I did discuss patient's case with Dr. Escalante At the [facility] transfer center who stated that based on previous documentation, patient was placed on palliative care and was not a candidate for liver transplant or TIPS procedure. She was offered hospice but did not pursue it at the time. He is unsure what they would have to offer other than palliative approach to her care. Given this, I did discuss further with family about goals of care. Patient's sister and mother are at the bedside at this time. They are quite unsure at this point with the differences between palliative versus hospice care but are aware that she is not a candidate for any additional interventions for her cirrhosis. They are concerned about her getting therapeutic paracentesis for comfort if she were to be admitted here as we do not have interventional radiology. After case management discussed options with the family, she is still undecided on what she wants to pursue at this time. Case management will provide resources for our hospice team here and they will contact her in the future to discuss options with her. Given this, I do feel that she would benefit from transfer given we do not have interventional radiology here, and if she would require therapeutic paracentesis, this would be best performed at the [facility] and they can have further goals of care discussions with her. I did reach back out to the [facility] center and they agreed to accept the patient to the [facility] ICU. I discussed this plan with family and they are amenable for transfer. Procedures Limited Ultrasound Indication:: Indication:: Ultrasound-guided line placement performed by me personally, Xander Betts MD Indication: - Difficult IV access, numerous unsuccessful pokes Identified structures: - Right basilic vein Location/access site: - Right basilic vein Vessel patency: - Patent Direct visualization? - Yes Impression: Successful 18 g catheter in left upper extremity cephalic vein Images were not saved to permanent archive The study was technically adequate Indication:: Ultrasound-guided line placement performed by me personally, Xander Betts MD Indication: - Difficult IV access, numerous unsuccessful pokes Identified structures: - Left basilic vein Location/access site: - Left basilic vein Vessel patency: - Patent Direct visualization? - Yes Impression: Successful 18 g catheter in left upper extremity cephalic vein Images were not saved to permanent archive The study was technically adequate Critical Care Critical Care Time Critical Care Time: Yes Attestation: On 10/10/25, the high probability of a clinically significant, sudden or life threatening deterioration of the following system(s) required my full and direct attention, intervention and personal management. The time I documented below is in addition to time spent performing reported procedures but includes the following listed in this critical care notation. Total Time Total Critical Care Time: 35
[2025-10-10 11:46] LABS: Hematocrit 26.4 % (37.0-47.0); Hemoglobin 8.8 g/dL (12.2-16.2); Immature Granulocytes % 0.3 %; Mean Corpuscular HGB Conc 33.3 g/dL (31.8-35.4); Mean Corpuscular Hemoglobin 32.6 pg (27.0-31.2); Mean Corpuscular Volume 97.8 fl (81-99); Nucleated Red Blood Cells % 0 %; Platelet Count 57 K/mm3 (142-424); Red Blood Count 2.70 M/mm3 (4.20-5.40); Red Cell Distribution Width-SD 55.1 fL; White Blood Count 3.5 K/mm3 (4.8-10.8)
[2025-10-10 11:48] LABS: Chloride 101 mmol/L (98-107)
[2025-10-10 11:49] LABS: Albumin Level 2.7 g/dl (3.5-5.0); Potassium 3.3 mmoL/L (3.5-5.1); Sodium 136 mmol/L (136-145)
[2025-10-10 11:52] LABS: Alanine Aminotransferase 25 U/L (12-78); Albumin/Globulin Ratio 0.8 (1.1-1.8); Alkaline Phosphatase 157 U/L (38-126); Ammonia 27 umol/L (9-30); Anion Gap 17.3 mEq/L (5-15); Aspartate Amino Transferase 53 U/L (14-36); Bilirubin,Total 2.1 mg/dl (0.2-1.3); Blood Urea Nitrogen 62 mg/dl (7-17); Calcium 8.0 mg/dl (8.4-10.2); Carbon Dioxide 21 mmol/L (22.0-30.0); Creatinine,Serum 3.50 mg/dl (0.52-1.04); Estimated Glomerular Filt Rate 13 ml/min (>60); GFR (African American) 16 ML/MIN (>60); Globulin 3.3 g/dL (1.3-3.2); Glucose 228 mg/dl (74-100); Lipase 236 U/L (23-300); Total Protein,Serum 6.0 g/dl (6.3-8.2)
[2025-10-10 11:54] LABS: VBG HCO3 18.5 mmol/L (23-30); VBG PCO2 44.6 mmol/L (35-51); VBG PH 7.24 mmol/L (7.31-7.41); VBG PO2 48.6 mmol/L (28-40)
[2025-10-10 11:55] LABS: Lactate Venous 3.9 mmol/L (0.4-2.0)
[2025-10-10 11:55] LABS: Activated Partial Thrombo Time 34.1 seconds (22.8-30.6); INR 1.59 (0.9-1.1); Prothrombin Time 17.1 seconds (10.1-12.5)
--- NOTE | 2025-10-10 11:56 | CT_ITS ---
FINAL REPORT TECHNIQUE: Axial images were obtained through the chest without contrast. Coronal and sagittal images were obtained and reviewed. This study was performed with techniques to keep radiation doses as low as reasonably achievable, (ALARA). Individualized dose reduction techniques using automated exposure control or adjustment of mA and/or kV according to the patient's size were employed. CLINICAL HISTORY: Sepsis, short of breath COMPARISON: 08/17/2025 FINDINGS: There is no significant mediastinal mass or adenopathy. The heart size is normal. The thoracic aorta measures 3.9 cm in diameter. There is no pericardial effusion. There has been interval decrease in size of the previously noted right pleural effusion. There is atelectasis at the right lung base. IMPRESSION: Significant interval decrease in size right pleural effusion. Borderline enlargement of ascending aorta. Reviewed, Interpreted and Dictated by Brenton Kraus MD Transcribed by Kadie Dinh Authenticated and [facility]
--- NOTE | 2025-10-10 11:56 | CT_ITS ---
FINAL REPORT TECHNIQUE: Axial images through the abdomen and pelvis were performed without contrast. This study was performed with techniques to keep radiation doses as low as reasonably achievable, (ALARA). Individualized dose reduction techniques using automated exposure control or adjustment of mA and/or kV according to the patient's size were employed. CLINICAL HISTORY: Sepsis, cirrhosis history COMPARISON: 08/17/2025 FINDINGS: Abdomen: Again noted is a small nodular liver consistent with cirrhosis. Moderate ascites is noted. Splenomegaly is noted with the spleen measuring 15 cm. Edema is seen throughout the root of the mesentery. There is edema surrounding the spleen, favored related to ascites and portal hypertension rather than pancreatitis. The adrenal glands and kidneys are unremarkable. Pelvis: The urinary bladder is decompressed. The appendix is not visualized. There is no pelvic mass or inflammation. IMPRESSION: Advanced cirrhosis with ascites, splenomegaly, and mesenteric edema. Reviewed, Interpreted and Dictated by Brenton Kraus MD Transcribed by Kadie Dinh Authenticated and [facility]
[2025-10-10 12:05] LABS: NT Pro Brain Natriuretic Pep. 828 pg/mL (0-125)
[2025-10-10 12:11] LABS: Magnesium 2.3 mg/dl (1.6-2.3); Phosphorous 5.6 mg/dl (2.5-4.5)
[2025-10-10 12:12] LABS: Troponin I < 0.01 ng/ml (0.00-0.034)
[2025-10-10] MEDS: RINGERS SOLUTION,LACTATED 500 ML 999 ML IV (12:13)
[2025-10-10 12:16] LABS: C-Reactive Protein 13.6 mg/L (0-4)
[2025-10-10] MEDS: NOREPINEPHRINE BITARTRATE/D5W 8 MG/250 ML PLAST..BAG 3.75 MG IV (12:16)
[2025-10-10 12:30] LABS: Procalcitonin 0.388 ng/mL (0.0-2.0)
--- NOTE | 2025-10-10 12:42 | ECG_ITS ---
APPROVED REPORT Exam: Resting ECG HR:55 bpm ECG Measurements Heart Rate 55 AXES SC 155 P 57 QRSd 100 QRS -41 QT 441 T 0 QTc 430 Conclusion SINUS BRADYCARDIA LEFT AXIS DEVIATION [QRS AXIS < -30] LOW QRS VOLTAGE IN PRECORDIAL LEADS [QRS DEFLECTION < 1.0 mV IN CHEST LEADS] PATTERN CONSISTENT WITH PULMONARY DISEASE NONSPECIFIC T-WAVE ABNORMALITY ABNORMAL ECG UNCONFIRMED REPORT Sinus bradycardia. No ST elevation or depression. QTc of 430 Electronically signed by : ENID HATFIELD, 10/10/2025 14:22:33
--- NOTE | 2025-10-10 13:30 | PC.NURSE ---
Called [facility] for possible transfer; powershared images.
[2025-10-10 13:31] LABS: Microscopic, Urine URINE MICROSCOPIC (MICROSCOPIC)
[2025-10-10 13:43] LABS: Bilirubin,Urine Negative (Negative); Color,Urine YELLOW (Yellow); Glucose,Urine (UA) Negative (Negative); Ketones,Urine Negative (Negative); Leukocyte Esterase,Urine 1+ (Negative); PH,Urine 5.5 (5.0-8.5); Protein,Urine TRACE (Negative); Specific Gravity, Urine 1.020 (1.005-1.030); Urobilinogen,Urine 0.2 EU/dl (0.2)
[2025-10-10 14:39] LABS: Bacteria,Urine 2+ /lpf
--- NOTE | 2025-10-10 14:42 | PC.NURSE ---
on phone with at this time.
--- NOTE | 2025-10-10 14:47 | SW/DCPLANNER ---
I was asked to speak w/ this patient regarding Hospice services. Patient currently resides at [facility] level of care. After a lengthy discussion w/ patient, sister and mother patient has decided to continue to purse treatment at this time. Per ER MD he will transfer patient to . Patient/family are also agreeable for Stephania w/ Hospice to reach out to answer any questions they have regarding their services. Sister: Lj Bernal [phone]
[2025-10-10 15:55] LABS: Reflex Lactic Add Lactic Reflex
--- NOTE | 2025-10-10 16:57 | PC.NURSE ---
Called [facility] back to see about an update on a bed
--- NOTE | 2025-10-10 18:34 | PC.NURSE ---
FOLLOW-UP ON BED AT ICU, BED REMAINS UNAVAILABLE AT THIS TIME
--- NOTE | 2025-10-10 19:36 | PC.NURSE ---
Report called to PARK Dillon at [facility]
== END 2025-10-10 20:47 | disposition other institution (70) ==
PROVIDERS: Emergency Provider Student in an Organized Health Care Education/Training Program; PCP Internal Medicine Adolescent Medicine
DX: I95.9 Hypotension, unspecified (principal); R74.02 Elevation of levels of lactic acid dehydrogenase [LDH]; E87.29 Other acidosis; E83.39 Other disorders of phosphorus metabolism; N17.9 Acute kidney failure, unspecified; K74.60 Unspecified cirrhosis of liver; Z66 Do not resuscitate
CPT/HCPCS: 71250; 74176; 80053; 81001; 82140; 82803; 83690; 83735; 83880; 84100; 84145; 84484; 85025; 85610; 85730; 86140; 87040; 87086; 93005; 96365; 96366; 99285; J0696; J7120

== ENCOUNTER 2025-11-11 22:51 | Emergency (ER) | payer MEDICARE, MEDICAID, SELFPAY ==
--- OUTSIDE RECORDS SUMMARY | 2023-07-07 18:50 | XMS_ITS | Encounter Summary ---
Author Organization [facility] Address [address] [place] [address] Care Team Providers Care Jewel Grinder Name Role Phone Taina Lyles APRN Primary Care Provider [phone] Reason for Referral * Hospital - Outpatient (Routine) - Closed Specialty Diagnoses / Procedures Referred By Eder zhu Referred To Contact Diagnoses JONATHAN (obstructive sleep apnea) Obesity (BMI 30-39.9) Nocturnal hypoxia Procedures Polysomnography 4 or More Parameters With CPAP Whitney Agarwal MD [address] [place] [address] Phone: tel: fax: Referral ID Status Reason Start Date Expiration Date Visits Re quested Visits Authorized [id number] Closed 04/14/2023 04/13/2024 1 1 Reason for Visit * Hospital - Outpatient (Routine) - Closed Specialty Diagnoses / Procedures Referred By Eder zhu Referred To Contact Diagnoses JONATHAN (obstructive sleep apnea) Obesity (BMI 30-39.9) Nocturnal hypoxia Procedures Polysomnography 4 or More Parameters With CPAP Whitney Aagrwal MD [address] [place] [address] [address] Phone: tel: fax: Referral ID Status Reason Start Date Expiration Date Visits Re quested Visits Authorized [id number] Closed 04/14/2023 04/13/2024 1 1 Encounter Details Date Type Department Care Team (Latest Contact Info) Description 07/07/2023 7:50 PM EDT Hospital Encounter [facility] [address] [place] [address] Whitney Agarwal MD [address] [facility] [address] [place] [address] JONATHAN (obstructive sleep apnea); Obesity (BMI 30-39.9); Nocturnal hypoxia Social History Tobacco Use Types Packs/Day Years Used Date Smoking Tobacco: Never Smokeless Tobacco: Never Alcohol Use Standard Drinks/Week Comments Not Currently 0 (1 standard drink = 0.6 oz pur e alcohol) AUDIT-C Answer Date Recorded Q1: How often do you have a drink containing alcohol? Never 11/30/2022 Q2: How many drinks containi ng alcohol do you have on a typical day when you are drinking? Patient does not drink Q3: How often do you have si x or more drinks on one occasion? Never 11/30/2022 Overall Financial Resource Strain (CARDIA) Answe r Date Recorded How hard is it for you to pa y for the very basics like food, housing, medical care, and heating? Not hard at all 12/01/2022 PHQ-2 Answer Date Recorded Retired PHQ-9: Brief Depression Severity Measure Score 19 10/22/2023 Hunger Vital Sign Answer Date Recorded Within the past 12 months, y ou worried that your food would run out before you got the money to buy more. Never true 12/01/19 23 Within the past 12 months, t he food you bought just didn't last and you didn't have money to get more. Never true 12/01/2022 PRAPARE - Transportation Answer Date Re corded In the past 12 months, has l ack of transportation kept you from medical appointments or from getting medications? No 11/21 In the past 12 months, has l ack of transportation kept you from meetings, work, or from getting things needed for daily living? No 12/01/2022 Housing Stability Vital Sign Answer Rajesh e Recorded In the last 12 months, was t here a time when you were not able to pay the mortgage or rent on time? No 12/01/2022 Number of Places Lived in the Last Year Not on f ile 12/01/2022 In the last 12 months, was t here a time when you did not have a steady place to sleep or slept in a fpc (including now)? No 12/01/2022 Abuse Screen Answer Date Recorded Feels Unsafe at Home or Work/School no 10/11/2023 Feels Threatened by Someone no 09/22 Does Anyone Try to Keep You From Having Contact with Others or Doing Things Outside Your Home? no 10/11/2023 Physical Signs of Abuse Present no 10/11/2023 Housing Stability Answer Date Recorded Current Living Arrangements home 12/23 Potentially Unsafe Housing Conditions Not on berta e 01/14/2023 Disabilities Answer Date Recorded Difficulty Concentrating, Remembering or Making Decisions yes 01/13/2023 Difficulty Managing Errands Independently no 01/13/2023 PHQ-2 Answer Date Recorded Patient Health Questionnaire-9 Score 24 06/01/2025 Comments No Sex and Gender Information Value Date Recorded Sex Assigned at Female 06/01/2025 9:46 AM EDT Legal Sex Female 11:00 AM EDT Gender Identity Not on file Sexual Orientation Straight 06/01/2025 9: 46 AM EDT documented as of this encounter Plan of Treatment Not on file documented as of this encounter Procedures Procedure Name Priority Date/Time Associated Diagnosis Comments TITRATION Routine 07/08/2023 6:11 AM EDT JONATHAN (obstructive sleep apnea) Obesity (BMI 30-39.9) Nocturnal hypoxia documented in this encounter Results * TITRATION (07/08/2023 6:11 AM EDT) Narrative SLEEP MEDICINE - 07/09/2023 12:44 PM EDT [facility] Pulmonary, Critical Care, and Sleep Medicine Whitney Agarwal M.D. [address] [facility] [address] Medical Office [address], [place]. [address]. CPAP/BiPAP TITRATION INTERPRETATION Date of Study: 07/07/2023 Patient Name: Gabi Zimmer Date of : 1960 Study ordered by: Dr. Agarwal Diagnosis after study: Obstructive Sleep Apnea. Previously established Good response to BiPAP titration. Poor REM sleep percentage. Impression: This study was performed as a BIPAP titration study. The patient did better with BIPAP. The patient did well at a final pressure of 14 cm inspiratory/ 6 cm expiratory. The patient was studied at that pressure for the entire night and no adjustment had to be made. Poor REM Sleep was noted. No oxygen was added during the titration study. Recommendations: It will need to be confirmed that she has been set up on BiPAP at 14/6 cm. Oxygen does not need to be added to the BiPAP at the current setting. Follow up: Patient will need to follow up in 4-24 weeks with one of the providers in this office. Clinical Information: Patient s previous sleep study revealed moderate JONATHAN Patient was noted to have nocturnal hypoxemia and was also having symptoms of poorly controlled obstructive sleep apnea, therefore a full night titration study was recommended Please feel free to contact the office of [facility] Pulmonary, Critical Care and Sleep Medicine at [phone], if you have any questions about this study. Best regards, This document was electronically signed by Whitney Agarwal MD on 07/09/23 at 12:38 EDT Whitney Agarwal MD SLEEP CENTER ORDERABLES Tari l Result SLEEP MEDICINE documented in this encounter Visit Diagnoses Diagnosis JONATHAN (obstructive sleep apnea) Obstructive sleep apnea (adult) (pediatric) Obesity (BMI 30-39.9) Nocturnal hypoxia documented in this encounter Additional Health Concerns Assessment Noted Time PHQ-2 Depression Total Score: 3 01/12/20 23 10:22 AM EST documented as of this encounter Care Teams Jewel Grinder Relationship Specialty Start Date End Date Taina Lyles APRN PCP - General Nurse Practitioner 12/30/22 documented as of this encounter
--- OUTSIDE RECORDS SUMMARY | 2025-09-17 09:30 | XMS_ITS | Encounter Summary ---
Author Organization [facility] Address [address] [place] [address] Care Team Providers Care Oil And Gas Exploration Technician Name Role Phone Lea Fernando Unavailable Rachel Ray RN Unavailable [phone] Tamera Isabel WASTE PICKER Unavailable Unavailabl Shaniqua Centeno WASTE PICKER Unavailable Unavailable Lillie Pritchard MD Primary Care Provider [phone] Reason for Visit * Auth/Cert (Routine) Specialty Diagnoses / Procedures Referred By Contherbert t Referred To Contact Diagnoses Acute kidney injury CARLOTTA Latonia Dowell MD [address] [place] [address] Phone: tel: fax: [facility] [address] [place] [address] Referral ID Status Reason Start Date Expiration Date Visits Re quested Visits Authorized [id number] 1 1 Encounter Details Date Type Department Care Team (Late st Contact Info) Description 09/17/2025 10:30 [address] [facility] [address] [facility] [address] [place] [address] Lea Reilly, [place] [address] Social History Tobacco Use Types Packs/Day Years [...] you attend [facility] or muslim services? Patient unable to answer [...] Date Recorded Patient Health Questionnaire-2 Score 0 09/17/2025 PHQ-9 Answer Date Recorded Patient Health Questionnaire-9 Score 24 09/03/2025 Humiliation, Afraid, Rape, and Kick questionnair e Answer Date Recorded Within the last year, have y ou been afraid of your partner or ex-partner? No 09/18/2025 Within the last year, have y ou been humiliated or emotionally abused in other ways by your partner or ex-partner? No Within the last year, have y ou been kicked, hit, slapped, or otherwise physically hurt by your partner or ex-partner? No 09/18/2025 Within the last year, have y ou been raped or forced to have any kind of sexual activity by your partner or ex-partner? No 09/18/2025 Social Connection and Isolation Panel Answer Date [...] more drinks on one occasion? Never 09/03/2025 [facility] - Occupational Stress Questionnaire Answer Date Recorded [...] the money to buy more. Never true 09/18/20 25 Within the past 12 months, t he food you bought just didn't last and you didn't have money to get more. Never true 09/18/2025 PRAPARE - Transportation Answer Date Re corded In the past 12 months, has l ack of transportation kept you from medical appointments or from getting medications? No 08/22 In the past 12 months, has l ack of transportation kept you from meetings, work, or from getting things needed for daily living? No 09/18/2025 Housing Stability Vital Sign Answer Rajesh e Recorded In the last 12 months, was t here a time when you were not able to pay the mortgage or rent on time? No 09/18/2025 Number of Times Moved in the Last Year Not on fi le 09/18/2025 At any time in the past 12 m [facility], were you homeless or living in a care home (including now)? No 09/18/2025 [facility] Utilities Answer Date Recorded In the past 12 months has th e electric, gas, oil, or water company threatened to shut off services in your home? No 09/18/2025 CAGE ASSESSMENT Answer Date Recorded Cage unable [...] drink first t kennedy in the morning (EYE-RESTRICTIVE PREPARATION OPERATOR) to steady your nerves or to [...] as of this encounter Functional Status * Question Answer Date of Assessment Author Precautions Fall risk;Environmen rodo surveillance 09/20/2025 10:00 PM EDT Yamile Carmichael * Over the past 2 weeks, how often have you been bothered by any of the following problems? Question Answer Date of Assessment Author Little interest or pleasure in doing things Not at all 09/17/2025 11:06 AM EDT Wanda Bullard Feeling down, depressed, or hopeless Not at all 08/22 11:06 AM EDT Wanda Bullard Patient Health Questionnaire-2 Score 0 08/22 11:06 AM EDT Wanda Bullard * Calculated C-SSRS Risk Score (Lifetime/Recent) Answer Date of Assessment Author No Risk Indicated 09/20/2025 8:00 PM EDT Viola Knutson RN * Question Answer Date of Assessment Author 1. Wish to be (Past 1 Month) No 09/20/2025 8:00 PM EDT Voila Knutson RN 2. Non-Specific Active Suici liz Thoughts (Past 1 Month) No 09/20/2025 8:00 PM EDT Rita Knutson RN 6. Suicidal Behavior (Lifetime) No 8:00 PM EDT Viola Knutson RN documented as of this encounter Mental Status * Question Answer Entry Date Author Precautions Fall risk;Environmen rodo surveillance 09/20/2025 10:00 PM EDT Yamile Carmichael documented in this encounter Miscellaneous Notes * Progress Notes - Lea Reilly LCSW - 09/17/2025 10:30 AM EDT SW had the pleasure of meeting with pt and pt's mother [facility] today. Pt was ambulating slowly with a RW. When asked how she is doing, pt reported not well . Pt reports feeling that her ammonia level is up again. She reports being hospitalized a few weeks ago for HE, stating she was found unresponsive by staff in her SNF. Pt reports she's been taking Lactulose as prescribed, but is having diarrhea with it. Pt reports being in the detention for 2 months now. She feels sad that this is new living environment, and she's hopeful that this won't be her permanent living environment, stating I'm too young to be in a detention . However, she also acknowledges that her care is more than family can manage at this time. Pt voiced being aware that living in detention will prevent herfrom being a txp candidate, but recognizes the need for SNF at this time. Pt would like to continuecare with her current provider through GI clinic if possible. Pt also discussed low mood recently. She states she had been sitting outside and enjoying the sunshine, but it's getting too cold to do that. She questions whether or not she is getting her Zoloft. SW suggested her or mother asking staffwhen she returns today. Pt appears to be on 25 mg and could be adjusted if she is getting meds and doesn't find it helpful. Pt became upset stating her son no longer wants anything to do with me , stating since going into the detention, son has not returned any calls from her. Pt states he I'mdone . It appears his support will be minimal moving forward. At this time, pt understands she is not an appropriate txp candidate. Should her her living situation change, she could be re-assessed later. documented in this encounter Plan of Treatment Upcoming Encounters Date Type Department Care Team (Late st Contact Info) Description 11/13/2025 1:00 PM EST Appointment [facility] [address] [place] [address] 11/13/2025 2:00 PM EST Appointment [facility] [address] [place] [address] 11/20/2025 11:45 AM EST Appointment [facility] [address] [place] [address] 11/20/2025 12:45 PM EST Appointment [facility] [address] [place] [address] 11/22/2025 1:00 PM EST Office Visit [facility] [address] [place] [address] Barrie Peterson MD [address] [place] [address] 11/28/2025 10:00 AM EST Appointment [facility] [address] [place] [address] 11/28/2025 11:00 AM EST Appointment [facility] [address] [place] [address] 12/05/2025 10:00 AM EST Appointment [facility] [address] [place] [address] 12/05/2025 11:00 AM EST Appointment [facility] [address] [place] [address] 12/20/2025 11:00 AM EST Office Visit [facility] Endocrinology [address] [place] [address] Miranda Hobson, CONSULTING PROPERTY MANAGER [address] [facility] [address] [place] [address] 03/07/2026 9:00 AM EDT Office Visit [facility] [address] [place] [address] Grover Little MD [address] [place] [address] documented as of this encounter Visit Diagnoses Not on filedocumented in this encounter Additional Health Concerns Assessment Noted Time PHQ-9 Depression Total Score: 24 025 8:56 AM EDT A fall risk assessment has been complete d for the patient 09/17/2025 11:06 AM EDT A Body Mass Index follow-up plan has been documented for the patient 09/23/2025 9:42 AM EST documented as of this encounter Care Teams Oil And Gas Exploration Technician Relationship Specialty Start Date End Date Lillie Pritchard MD [address] [place] [address] PCP - General Family Medicine 09/03/25 Lea Fernando [address] [place] [address] Pipeline Engineer Endocrinology 08/29/24 Rachel Ray RN [address] [place] [address] Nurse Practitioner Gastroenterology 09/24/24 Tamera Isabel LPN VALUE-BASED TRANSFORMATION PROGRAM None Licensed Practical Nurse 05/29/25 Shaniqua Trevino LPN None None TCM Nurse 08/21/25 09/20/25 documented as of this encounter
--- OUTSIDE RECORDS SUMMARY | 2025-09-17 10:20 | XMS_ITS | Encounter Summary ---
Author Organization [facility] Address [address] [place] [address] Care Team Providers Care Industrial Insulator Name Role Phone Lea Fernando Unavailable [phone] Rachel Ray RN Unavailable Tamera Isabel TECHNICAL LABORATORY ASST Unavailable Unavailabl Shaniqua Centeno TECHNICAL LABORATORY ASST Unavailable Unavailable Lillie Pritchard MD Primary Care Provider [phone] Reason for Visit * Reason Comments Pre-Liver Txp Follow-up * Auth/Cert (Routine) Specialty Diagnoses / Procedures Referred By Contac t Referred To Contact Diagnoses Acute kidney injury CARLOTTA Latonia Dowell MD [address] [place] [address] Phone: tel: fax: [address] [address] Referral ID Status Reason Start Date Expiration Date Visits Re quested Visits Authorized [id number] 1 1 Encounter Details Date Type Department Care Team (Latest Contact Info) Description 09/17/2025 11:20 AM EDT Office Visit [facility] [address] [place] [address] Octavia Herrera PA [address] [place] [address] Cirrhosis of liver with ascites, unspecified hepatic cirrhosis type (Primary Dx); Secondary esophageal varices without bleeding; Pleural effusion associated with hepatic disorder; Moderate protein-calorie malnutrition (CMS/HCC); Chronic kidney disease, stage 3b (CMS/HCC); Self-care deficit; Hepatic encephalopathy (CMS/HCC); CARLOTTA (acute kidney injury) Social History Tobacco Use Types Packs/Day Years [...] often do you attend [employer] or church services? Patient unable to answer [...] more drinks on one occasion? Never 09/03[facility]2025 [facility] Questionnaire Answer [...] living in a halfway (including now)? No 09/18/2025 [facility] Utilities Answer Date Recorded In [...] drink first t kennedy in the morning (EYE-CRIMINAL ATTORNEY) to steady your nerves or to [...] Sign Reading Time Taken Comments Blood Pressure 127/74 09/17/2025 10:58 AM EDT Pulse 80 09/17/2025 10:58 AM EDT Temperature 36.4 C (97.6 F) 09/17/2025 10:58 AM EDT Respiratory Rate 16 09/17/2025 10:5 8 AM EDT Oxygen Saturation 96% 09/17/2025 10: 58 AM EDT Inhaled Oxygen Concentration - - Weight 77.9 kg (171 lb 11.8 oz) 025 10:58 AM EDT Height 165.1 cm (5' 5 ) 09/17/2025 10:5 8 AM EDT Body Mass Index 28.58 09/17/2025 10:58 AM EDT documented in this encounter Functional [...] 0 08/22 11:06 AM EDT Wanda Bullard documented as of this encounter Miscellaneous Notes * Progress Notes - Octavia Herrera PA - 09/17/2025 11:20 AM EDT Images from the original note were not included. Transplant Hepatology Note History of Presenting Illness Gabi Zimmer is a 65 y.o. female with past medical history of ADHD, Anxiety disorder , Depression, Obesity, obstructive sleep apnea, Type 2 diabetes mellitus, asthma, osteoarthritis, MASH cirrhosis decompensated with ascites, HE came to the clinic for follow up. Listed inactive for OLT due to lack of caregiver MELD 29 Last seen 06/11/25 Admitted 08/18 - 08/20/25 - transferred to for HE, ascites, pleural effusion, cirrhosis, CARLOTTA, UTI.At the OSH there were concerns for low blood pressure and UTI and decompensated cirrhosis was discovered, and ultrasound-guided abdominal paracentesis with total of 6.5 L of clear yellow fluid removed and administered 37.5 g of IV albumin x1 postprocedure. Given Rocephin x1 fur suspected UTI and transferred to [place] ED for evaluation, which was then transferred to [facility] She is overall feeling unwell today. She continues to have ascites and pleural effusion requiring weekly paracentesis. No LE edema. She has had intermittent confusion and required hospitalization as above. Denies any Gi bleeding. Reports diarrhea 6-7x per day with liquid BM for the last 3-4 days. She is currently in a mcc in [place]. As of last visit we discussed she would not be a candidate for transplant if caregiver issues not resolved. She saw SW today and and has not resolved caregiver concerns. Her son is no longer a part of her care. Her mom accompanies her but is elderly and needs assistance with mobility, and her sister is not able to provide interactive multimedia designer care. Her sisternotes that when Gabi lived with her, she would not take her medications and the nursing facility has documented that she has not been taking her meds and at time refusing lactulose. Patient notes she does not always remember that and does try to take all of her other meds. Pt concerns about care at nursing facility but her family reports she seems to have good care. Patient notes depression related to her health and social situation and inability to be on the transplant list. She wants to continue to pursue full care at this moment. Prior History: Was seen by Rachel Ray in Hepatology clinic on 09/13/2024 and referred ot TXP As per chart review she was diagnosed with cirrhosis in 2022. Has had fatty liver since 1996. Past Medical History As per HPI Past [...] Outpatient Medications Current Outpatient Medications Medication Instructions Accu-Chek Guide Test test strip Accu-Chek Guide Test test strip bumetanide (BUMEX) 0.5 mg, 3 times weekly calcitriol (ROCALTROL) 0.25 mcg, Oral, Daily carboxymethylcellulose PF (Refresh Plus) 0.5 % ophthalmic solution 1 drop, Both Eyes, As needed cetirizine (ZYRTEC) 10 mg, Oral, Daily cholecalciferol (VITAMIN D-3) 1,000 Units, Oral, Daily ciprofloxacin (CIPRO) 500 mg, Oral, Daily ergocalciferol (VITAMIN D-2) 50,000 Units, Oral, Weekly Glucagon, rDNA, (Glucagon Emergency) 1 MG kit insulin glargine-yfgn 24 Units, Subcutaneous, Daily insulin lispro (ADMELOG) 0-10 Units, Subcutaneous, 3 times daily with meals, See After Visit Summary for instructions on how to take your insulin. insulin lispro (Admelog, HumaLOG) 100 UNIT/ML injection pen insulin lispro (Admelog, HumaLOG) 100 UNIT/ML injection pen insulin lispro (Admelog, HumaLOG) 100 UNIT/ML injection pen lactulose (CHRONULAC) 20 g, Oral, 3 times daily Lantus SoloStar 100 UNIT/ML injection pen Magnesium Oxide -Mg Supplement 500 MG tablet Magnesium Oxide, Laxative, 500 MG tablet 1 tablet, Oral, Daily midodrine (PROAMATINE) 15 mg, Oral, 3 times daily Multiple Vitamins-Minerals (COMPLETE WOMENS PO) 1 tablet, Daily NovoLOG FLEXPEN 100 UNIT/ML injection pen NovoLOG FLEXPEN 100 UNIT/ML injection pen rifAXIMin (XIFAXAN) 550 mg, Oral, 2 times daily senna (SENOKOT) 8.6 mg, Oral, Nightly sertraline (ZOLOFT) 25 mg, Oral, Daily Tums E-X 750 mg, Oral, Daily Allergies Allergies Allergen Reactions Penicillins Other - please document in the comment field Doesn't remember Vaccinations Immunization History Administered Date(s) Administered Influenza, Unspecified 09/01/2015, 09/10/2022 Influenza, injectable, quadrivalent 08/10/2016, 08/23/2018, 09/05/2019 Influenza, injectable, quadrivalent, preservative free 08/18/2017, 02/11/2021, 10/01/2021 Influenza, seasonal, injectable 09/01/2015 Pneumococcal Polysaccharide PPV23 08/23/2018 Tdap 07/17/2019 Zoster, Recombinant 07/17/2019, 10/30/2019 Vital Signs Visit Vitals BP 127/74 Pulse 80 Temp 36.4 ??C (97.6 ??F) Resp 16 Ht 1.651 m (5' 5 ) Wt 77.9 kg (171 lb 11.8 oz) SpO2 96% BMI 28.58 kg/m?? OB Status Hysterectomy Smoking Status Never BSA 1.89 m?? Physical Exam General - jaundiced female in no acute distress HEENT - + scleral icterus, EOMI, atraumatic, normocephalic; ears located midway on head with normalappearance, nose midline without discharge. Cardiovascular - RRR without murmurs, rubs, or gallops; no LE edema Respiratory - respiratory rate even and non-labored; reduced lung sound on right side Gastrointestinal - bowel sounds present; soft, non-tender,+distended; + ascites noted; no hernias present; liver and spleen not felt. Healed CCY incision Dermatologic - jaundice, spider angiomata, or palmar erythema. Warm and dry to palpation. No clubbing MSK - no deformities noted; no edema or erythema of joints visible, muscle wasting Neuro - + asterixis present, oriented to time and place. Psychiatric - pleasant, calm, cooperative. tearful Labs MELD 3.0: 29 at 09/17/2025 9:44 AM MELD-Na: 28 at 09/17/2025 9:44 AM Calculated from: Serum Creatinine: 1.88 mg/dL at 09/17/2025 9:44 AM Serum Sodium: 138 mmol/L (Using max of 137 mmol/L) at 09/17/2025 9:44 AM Total Bilirubin: 5 mg/dL at 09/17/2025 9:44 AM Serum Albumin: 3.5 g/dL at 09/17/2025 9:44 AM INR(ratio): 2.3 at 09/17/2025 9:44 AM Age at listin years Sex: Female at 09/17/2025 9:44 AM AFP Lab Results Component Value Date/Time AFP 4.0 05/07/2025 0858 AFP <2.3 10/22/2024 1144 HgB Lab Results Component Value Date/Time HGB 10.5 (L) 09/17/2025 0944 HGB 8.6 (L) 08/20/2025 0326 WBC Lab Results Component Value Date/Time WBC 4.34 09/17/2025 0944 WBC 4.76 08/20/2025 0326 A1c Lab Results Component Value Date/Time HGBA1C 6.4 08/26/2025 1304 HGBA1C 10.8 (A) 11/24/2021 0946 Lab Results Component Value Date/Time AST 63 (H) 09/17/2025 0944 ALT 21 09/17/2025 0944 ALKPHOS 127 09/17/2025 0944 BILITOT 5.0 (H) 09/17/2025 0944 INR 2.3 (H) 09/17/2025 0944 ALBUMIN 3.5 09/17/2025 0944 CREATININE 1.88 (H) 09/17/2025 0944 AFP 4.0 05/07/2025 0858 Lab Results Component Value Date/Time HGB 10.5 (L) 09/17/2025 0944 WBC 4.34 09/17/2025 0944 PLT 52 (L) 09/17/2025 0944 Hepatitis Serologies Lab Results Component Value Date/Time HEPBSAG Negative 01/10/2025 0307 ZO Non-Reactive 10/28/2022 0843 HECG Negative 10/22/2024 1144 HAG Negative 01/10/2025 0307 Work-up Labs Lab Results Component Value Date/Time FERRITIN 280 (H) 06/05/2025 1552 TIBC 116 (L) 10/22/2024 0019 AAT 137 10/22/2024 1144 CERULOPLSM 20 10/22/2024 1144 HGBA1C 6.4 08/26/2025 1304 HGBA1C 10.8 (A) 11/24/2021 0946 CHOL 70 10/22/2024 0019 LDLCALC 32 10/22/2024 0019 LDLCALC 100 04/30/2016 0920 HDL 25 (L) 10/22/2024 0019 TRIG 49 10/22/2024 0019 TSH 2.03 10/22/2024 0019 Assessment and Plan Problem List Items Addressed This Visit Chronic kidney disease, stage 3b (CMS/HCC) Hepatic encephalopathy (CMS/HCC) Secondary esophageal varices without bleeding (Chronic) Cirrhosis of liver with ascites - Primary Moderate protein-calorie malnutrition (CMS/HCC) Pleural effusion associated with hepatic disorder Self-care deficit CARLOTTA (acute kidney injury) Gabi Zimmer is a 65 y.o. female with past medical history of ADHD, Anxiety disorder , Depression, Obesity, obstructive sleep apnea, Type 2 diabetes mellitus, asthma, osteoarthritis, MASH cirrhosis decompensated with ascites, HE came to the clinic for follow up. Listed inactive for OLT due to lack of caregiver MELD 29 # Decompensated MASH cirrhosis Pt evaled for OLT, possible SLK Listed for OLT, however inactivated as of April 2025 due to concerns with Caregiver (son) no longer being able to provide care Reassess on 06/11/25 and issue not resolved, discussed at that time needs for issue to be resolved by next visit, saw SW at that time as well 06/17/25 Transplant Selection Committee review - lack of caregiver, remain inactive --as of today patient reports she is no longer in contact with her son (see SW note for additional information) who was her primary caregiver, she is currently in nursing Facility in [place], and sister and mother who are with her today are unable to provide care; sister also verbalizes difficulty with getting patient to take medications and concerns with quality of life post transplant; I discussed with patient today that she is not a candidate for transplant - explained that given her severity of illness we could consider palliative care and possible transition to hospice however patient currently declines and wants to seek full care; I think this issue can be revisited with her once she has more time to process --no need to return to transplant clinic, if she does not pursue hospice, can be seen in the medicine specialties hepatology clinic # CARLOTTA on CKD Hx of recurrent AKICr 1.9 today, from 1.3 on 09/03; admission on 08/18/25 with Cr 2.7; prior to thatbaseline was around ~1.5 --given above discussion with patient and her desire to continue to seek treatment, will admit for management of CARLOTTA # Diarrhea Currently living in nursing facility # Ascites # Hepatic hydrothorax Now needing frequent thoracentesis and para - weekly SBP: Yes during last admission and is currently on Cipro SBP secondary prophylaxis. Diuretics - off --continue LVP PRN, thora PRN week, continue midodrine NAC for TIPS # Hepatic Encephalopathy: On Lactulose and Xifaxan, has had multiple admissions, will decline lactulose in her mcc ttime --Continue Rifaximin 550 mg BID, lactulose, encouraged compliance # Esophageal varices screening- # Esophageal [...] of esophagus with clean base, sara III # HCC surveillance Last imaging: CT 05/07/25 - LR negative Lab Results Component Value Date AFP 4.0 05/07/2025 --continue q6 monthly HCC surveillance with imaging and AFP, next due in April # Anxiety/depression # Moderate protein-calorie malnutrition -- Counseled on the importance of increasing protein intake, advised to get 1.2-1.5 gram/kg a day. Advsied to take late night snack/shake and upon waking up and several times a day # DM # Osteoporosis - DEXA scan showed osteoporosis A total of 51 minutes was spent on this patient encounter [...] Appointment [facility] [address] [place] [address] 11/13/2025 2:00 PM EST Appointment [facility] [address] [place] [address] 11/20/2025 11:45 AM EST Appointment [facility] [address] [place] [address] 11/20/2025 12:45 PM EST Appointment [facility] [address] [place] [id number] 11/22/2025 1:00 PM EST Office Visit [facility] [address] [place] [address] Barrie Peterson MD [address] [place] [phone] 11/28/2025 10:00 AM EST Appointment [facility] [address] [place] [address] 11/28/2025 11:00 AM EST Appointment [facility] [address] [place] [id number] 12/05/2025 10:00 AM EST Appointment [facility] [address] [place] [id number] 12/05/2025 11:00 AM EST Appointment [facility] [address] [place] [address] 12/20/2025 11:00 AM EST Office Visit [facility] [address] [place] [phone] Miranda Hobson P, TRAWL NET MAKER [address] [facility] [address] [place] [address] 03/07/2026 9:00 AM EDT Office Visit [facility] [address] [place] [address] Grover Little MD [address] [facility] [address] [place] [address] documented as of this encounter Visit Diagnoses Diagnosis Cirrhosis of liver with ascites, unspecified hepatic cirrhosis type- Primary Secondary esophageal varices without bleeding Pleural effusion associated with hepatic disorder Other specified forms of effusion, except tuberculous Moderate protein-calorie malnutrition (CMS/HCC) Chronic kidney disease, stage 3b (CMS/HCC) Self-care deficit Hepatic encephalopathy (CMS/HCC) Hepatic encephalopathy CARLOTTA (acute kidney injury) documented in this encounter Additional Health Concerns Assessment Noted Time PHQ-9 Depression Total Score: 24 025 8:56 AM EDT A fall risk assessment has been complete d for the patient 09/17/2025 11:06 AM EDT A Body Mass Index follow-up plan has been documented for the patient 09/23/2025 9:42 AM EST documented as of this encounter Care Teams Industrial Insulator Relationship Specialty Start Date End Date Lillie Pritchard MD [address] [place] [id number] PCP - General Family Medicine 09/03/25 Lea Fernando [address] [facility] [address] [place] [id number] Air Conditioning Unit Tester Endocrinology 08/29/24 Rachel Ray, RN [address] [facility] [address] [place] [phone] Nurse Practitioner Gastroenterology 09/24/24 Tamera Isabel LPN VALUE-BASED TRANSFORMATION PROGRAM None Licensed Practical Nurse 05/29/25 Shaniqua Trevino LPN None None TCM Nurse 08/21/25 09/20/25 documented as of this encounter
--- OUTSIDE RECORDS SUMMARY | 2025-09-17 14:35 | XMS_ITS | Encounter Summary ---
Author Organization [facility] Address [address] [place] [address] Care Team Providers Care Blind Escort Name Role Phone Lea Fernando Unavailable [phone] Rachel Ray RN Unavailable [phone] Tamera Isabel DOCK LOADER Unavailable Unavailabl Shaniqua Centeno DOCK LOADER Unavailable Unavailable Lillie Pritchard MD Primary Care Provider [phone] Reason for Referral * Imaging (Routine) - Closed Specialty Diagnoses / Procedures Referred By Contac t Referred To Contact Radiology Diagnoses Other ascites Procedures US Guided Thoracentesis Marianna Gordon APRN [address] [place] [address] Phone: tel: fax: Referral ID Status Reason Start Date Expiration Date Visits Re quested Visits Authorized [id number] Closed 08/30/2025 03/01/2027 1 1 * Imaging (Routine) - Closed Specialty Diagnoses / Procedures Referred By Contac t Referred To Contact Radiology Diagnoses Alcoholic cirrhosis of liver with ascites Procedures US Guided Abdominal Paracentesis Marianna Gordon APRN [address] [place] [phone] Phone: tel: fax: Referral ID Status Reason Start Date Expiration Date Visits Re quested Visits Authorized [id number] Closed 08/30/2025 03/01/2027 1 1 Reason for Visit * Auth/Cert (Routine) Specialty Diagnoses / Procedures Referred By Eder zhu Referred To Contact Diagnoses Acute kidney injury CARLOTTA Latonia Dowell MD [address] [place] [address] Phone: tel: fax: PAV [address] [address] Referral ID Status Reason Start Date Expiration Date Visits Re quested Visits Authorized [id number] 1 1 Encounter Details Date Type Department Care Team (Latest Contact Info) Description 09/17/2025 3:35 PM EDT - 09/23/2025 10:31 AM EST Hospital Encounter [facility] H Inpatient [address] [place] [id number] Preeti Magaña, DO [address] [place] [address] Latonia Dowell MD [address] [place] [address] Acute cystitis without hematuria (Primary Dx); Alcoholic cirrhosis of liver with ascites; Other ascites Discharge Disposition: Retirement Facility Social History Tobacco Use Types Packs/Day Years [...] do you attend [facility] or protestant services? Patient unable to [...] more drinks on one occasion? Never [facility]20[facility] - Occupational Stress Questionnaire Answer Date Recorded [...] in a skilled nursing (including now)? No 09/18/2025 [facility] Utilities Answer Date Recorded In the past 12 months has th e [employer] gas, oil, or water company threatened to [...] drink first t kennedy in the morning ([employer]) to steady your nerves or to get [...] Sign Reading Time Taken Comments Blood Pressure 122/68 09/23/2025 7:51 AM EST Pulse 79 09/23/2025 7:51 AM EST Temperature 36.5 C (97.7 F) 09/23/2025 7:51 AM EST Respiratory Rate 15 09/23/2025 7:51 AM EST Oxygen Saturation 99% 09/23/2025 7:51 AM EST Inhaled Oxygen Concentration - - Weight 77.9 kg (171 lb 11.8 oz) 09/23/2025 5:00 AM EST Height 165.1 cm (5' 5 ) 09/22/2025 7:46 PM EST Body Mass Index 28.58 09/22/2025 7:46 PM EST documented in this encounter Functional Status * Question Answer Date of Assessment Author Precautions Environmental surveillance 09/23/2025 8:0 0 AM EST Yeni Rosen, RN * Over the past 2 weeks, how [...] Date of Assessment Author No Risk Indicated 10/03/2025 2:19 PM EST Daniele Kennedy RN * Question Answer Date of Assessment Author 1. Wish to be (Past 1 Month) No 025 2:19 PM EST Daniele Kennedy RN 2. Non-Specific Active Suici liz Thoughts (Past 1 Month) No 10/03/2025 2:19 PM EST Daniele Kennedy RN 6. Suicidal Behavior (Lifetime) No 2:19 PM EST Daniele Kennedy RN documented as of this encounter Mental Status * Question Answer Entry Date Author Precautions Environmental surveillance 09/23/2025 8:0 0 AM EST Yeni Rosen RN documented in this encounter Discharge Instructions * Discharge Instructions* Steff Samayoa MD - 09/22/2025 4:29 PM EST Please resume taking all of your home medications. Please take bumex as prescribed 3 times weekly (Tuesday). Please take ciprofloxacin two times daily for the next two days (3 extra tablets total), then return to your regular once daily dosing. Limit sodium to <2g per day and ensure adequate hydration. documented in this encounter Medications at Time of Discharge bumetanide (Bumex) 0.5 MG tablet Take 1 tablet by mouth 3 times a week. 09/25/2025 calcitriol (Rocaltrol) 0.25 MCG capsuleIndication s:Chronic kidney [...] by mouth daily. 90 tablet 2 04/01/2025 diclofenac (Voltaren) 1 % topical gel Place 2 g on the skin 2 times a day. Apply as directed to left ankle ergocalciferol (Vitamin D-2) 1.25 MG (59515 UT) capsule Take 1 capsule by mouth 1 time per week. insulin lispro (Admelog) 100 UNIT/ML injection Inject [...] in the morning. rifAXIMin (Xifaxan) 550 MG tabletIndications :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 60 tablet 11 06/03/2025 6 senna (Senokot) 8.6 MG tablet Take 1 tablet by mouth nightly. 07/09/2025 sertraline (Zoloft) 25 MG tabletIndications :Anxiety disorder, unspecified type Take 1 tablet by mouth daily. 90 tablet 1 09/03/2025 ciprofloxacin (Cipro) 500 MG tabletIndications :Acute cystitis without hematuria Take 1 tablet by mouth 2 times a day for 2 days, THEN 1 tablet daily. 34 tablet 09/23/2025 5 INSULIN GLARGINE-YFGN SC Inject 26 Units under the skin every morning. 5 midodrine (Proamatine) 5 MG tablet Take 3 tablets by mouth 3 times a day. 07/09/2025 5 prochlorperazine (Compazine) 5 MG tablet Take 1 tablet by mouth every 8 hours as needed for nausea or vomiting. 5 documented as of this encounter Miscellaneous Notes * Progress Notes - Lea Flores RN - 09/23/2025 9:42 AM EST Case Management Discharge Note Monika Zimmer 65 y.o. female CSN: [id number] Admission: 09/17/2025 3:35 PM Primary Problem: Acute kidney injury Primary Contact Acid Plant Operator: Primary Caregiver: Other (Comment) ([employer]) Assistance Available at Discharge: Availability of Care Givers (#Hours): 24 hours Housing Circumstances-Z Codes: Housing Circumstances (select all that apply): Low Income (101-300% Federal Poverty Guidlines) - Z596 Patient Referred to Financial or Community Resources: Discharge Facility/Level of Care Needs: Discharge Facility/Level of Care Needs: 1-Home or Self Care Patient's Choice of Community Agency(s): Patient/Family Anticipated Services at Transition: DME/Equipment Needed after Discharge: Equipment Currently Used at Home: walker, rollator, oxygen, Bipap Equipment Needed After Discharge: none Readmission Within the Last 30 Days: Medicare Documentation: Follow-up: Octavia Herrera, MARIA GUADALUPE [address] [facility] [phone] [facility] Follow up Discharge Transportation: Transportation Home at Discharge: Medical Transport Has discharge transport been arranged?: Yes What day is the transport expected?: 09/23/25 What time is the transport expected?: 1000 Follow Up Transport: Transportation Needed to Follow up Appoinments: Family/Friend will Provide Additional Comments: Patient to return to [facility]. [facility] stretcher transport. Lea Flores, RN * Care Plan - Yeni Rosen RN - 09/23/2025 9:37 AM EST Problem: Adult Inpatient Plan of Care Goal: Plan of Care Review Outcome: Ongoing, Progressing Flowsheets (Taken 09/23/2025934) Progress: improving Outcome Evaluation: patient will verbalize an understanding of discharge plan during shift Plan of Care Reviewed With: patient Note: Team rounding, education provided, questions answered Goal: Patient-Specific Goal (Individualized) Outcome: Ongoing, Progressing Flowsheets (Taken 09/23/2025799) Patient/Family-Specific Goals (Include Timeframe): patient will remain free of falls and injury throughout shift Individualized Care Needs: safety Anxieties, Fears or Concerns: none stated Note: Call connolly in reach, bed alarm set, safety rounding Goal: Absence of Hospital-Acquired Illness or Injury Outcome: Ongoing, Progressing Intervention: Prevent Skin Injury Flowsheets (Taken 09/23/2025799) Body Position: weight shifting Skin Protection: protective footwear used Goal: Optimal Comfort and Wellbeing Outcome: Ongoing, Progressing Intervention: Provide Person-Centered Care Flowsheets (Taken 09/23/2025934) Trust Relationship/Rapport: care explained questions encouraged choices provided reassurance provided emotional support provided thoughts/feelings acknowledged empathic listening provided questions answered Problem: Acute Kidney Injury/Impairment Goal: Fluid and Electrolyte Balance Outcome: Ongoing, Progressing Intervention: Monitor and Manage Fluid and Electrolyte Balance Flowsheets (Taken 09/23/2025934) Fluid/Electrolyte Management: fluids provided Goal: Improved Oral Intake Outcome: Ongoing, Progressing Intervention: Promote and Optimize Oral Intake Flowsheets (Taken 09/23/2025934) Nutrition Interventions: frequent small meals provided meal set-up provided meals from home/family encouraged Goal: Effective Renal Function Outcome: Ongoing, Progressing Intervention: Monitor and Support Renal Function Flowsheets (Taken 09/23/2025934) Stabilization Measures: legs elevated Medication Review/Management: medications reviewed Problem: Fall Injury Risk Goal: Absence of Fall and Fall-Related Injury Outcome: Ongoing, Progressing Intervention: Promote Injury-Free Environment Flowsheets (Taken 09/23/2025 0800) Safety Promotion/Fall Prevention: activity supervised assistive device/personal items within reach clutter-free environment maintained lighting adjusted mobility aid in reach fall prevention program maintained nonskid shoes/slippers when out of bed room organization consistent safety round/check completed toileting scheduled Problem: Self-Care Deficit Goal: Improved Ability to Complete Activities of Daily Living Outcome: Ongoing, Progressing Intervention: Promote Activity and Functional [place] Flowsheets Taken 09/23/2025 09 Adaptive Equipment Use: use encouraged Self-Care Promotion: independence encouraged BADL personal objects within reach BADL personal routines maintained meal set-up provided Taken 09/23/2025 08 Activity Assistance Provided: assistance, 1 person Problem: Skin Injury Risk Increased Goal: Skin Health and Integrity Outcome: Ongoing, Progressing Intervention: Optimize Skin Protection Flowsheets Taken 09/23/2025 0935 Pressure Reduction Techniques: frequent weight shift encouraged positioned off wounds pressure points protected Taken 09/23/2025 08 Activity Management: activity adjusted per tolerance Skin Protection: protective footwear used Head of Bed (HOB) Positioning: HOB elevated * Care Plan - Tiarra Ray RN - 09/22/2025 7:54 PM EST Problem: Adult Inpatient Plan of Care Goal: Plan of Care Review Outcome: Ongoing, Progressing Flowsheets (Taken 09/22/20251950) Progress: improving Outcome Evaluation: Patient verbalized understanding the plan of care. Plan of Care Reviewed With: patient Goal: Patient-Specific Goal (Individualized) Outcome: Ongoing, Progressing Flowsheets (Taken 09/22/2025 1905) Patient/Family-Specific Goals (Include Timeframe): Pt will remain free of falls and injury thoughout the shift. Individualized Care Needs: safety Anxieties, Fears or Concerns: none stated Note: Room near nurse station, call light near pt bedside, bed in locked and lowest position. Goal: Absence of Hospital-Acquired Illness or Injury Outcome: Ongoing, Progressing Intervention: Identify and Manage Fall Risk Flowsheets (Taken 09/22/20251950) Safety Promotion/Fall Prevention: activity supervised lighting adjusted mobility aid in reach nonskid shoes/slippers when out of bed clutter-free environment maintained room organization consistent fall prevention program maintained safety round/check completed Intervention: Prevent Skin Injury Flowsheets (Taken 09/22/20251950) Body Position: weight shifting Skin Protection: protective footwear used Intervention: Prevent and Manage VTE (Venous Thromboembolism) Risk Flowsheets (Taken 09/22/20251950) VTE Prevention/Management: bilateral SCDs (sequential compression devices) off education provided Intervention: Prevent Infection Flowsheets (Taken 09/22/20251950) Infection Prevention: environmental surveillance performed single patient room provided rest/sleep promoted Goal: Optimal Comfort and Wellbeing Outcome: Ongoing, Progressing Intervention: Monitor Pain and Promote Comfort Flowsheets (Taken 09/22/20251950) Pain Management Interventions: rest relaxation techniques promoted quiet environment facilitated pillow support provided care clustered Intervention: Provide Person-Centered Care Flowsheets (Taken 09/22/20251950) Trust Relationship/Rapport: reassurance provided care explained choices provided thoughts/feelings acknowledged emotional support provided empathic listening provided questions answered questions encouraged Problem: Acute Kidney Injury/Impairment Goal: Fluid and Electrolyte Balance Outcome: Ongoing, Progressing Intervention: Monitor and Manage Fluid and Electrolyte Balance Flowsheets (Taken 09/22/20251950) Fluid/Electrolyte Management: fluids provided Goal: Improved Oral Intake Outcome: Ongoing, Progressing Intervention: Promote and Optimize Oral Intake Flowsheets (Taken 09/22/20251950) Oral Nutrition Promotion: adaptive equipment use encouraged physical activity promoted Nutrition Interventions: food preferences provided Goal: Effective Renal Function Outcome: Ongoing, Progressing Intervention: Monitor and Support Renal Function Flowsheets (Taken 09/22/20251950) Stabilization Measures: legs elevated Medication Review/Management: medications reviewed Problem: Fall Injury Risk Goal: Absence of Fall and Fall-Related Injury Outcome: Ongoing, Progressing Intervention: Identify and Manage Contributors Flowsheets (Taken 09/22/20251950) Medication Review/Management: medications reviewed Self-Care Promotion: independence encouraged BADL personal objects within reach Intervention: Promote Injury-Free Environment Flowsheets (Taken 09/22/20251950) Safety Promotion/Fall Prevention: activity supervised lighting adjusted mobility aid in reach nonskid shoes/slippers when out of bed clutter-free environment maintained room organization consistent fall prevention program maintained safety round/check completed Problem: Self-Care Deficit Goal: Improved Ability to Complete Activities of Daily Living Outcome: Ongoing, Progressing Intervention: Promote Activity and Functional [place] Flowsheets (Taken 09/22/20251950) Activity Assistance Provided: assistance, 1 person Adaptive Equipment Use: use encouraged Self-Care Promotion: independence encouraged BADL personal objects within reach Problem: Skin Injury Risk Increased Goal: Skin Health and Integrity Outcome: Ongoing, Progressing Intervention: Optimize Skin Protection Flowsheets (Taken 09/22/20251950) Activity Management: activity adjusted per tolerance activity encouraged Pressure Reduction Techniques: frequent weight shift encouraged Pressure Reduction Devices: positioning supports utilized Skin Protection: protective footwear used Head of Bed (HOB) Positioning: HOB elevated Intervention: Promote and Optimize Oral Intake Flowsheets (Taken 09/22/20251950) Oral Nutrition Promotion: adaptive equipment use encouraged physical activity promoted Nutrition Interventions: food preferences provided * Discharge Summary - Steff Samayoa MD - 09/22/2025 3:30 PM EST Hospitalization Admit Date/Time: 09/17/2025 3:35 PM Admitting Attending: Latonia Dowell Discharge Date: 09/23/2025 Discharge Attending Physician: Latonia Dowell MD PCP name and Address: Lillie Pritchard MD [address] [place] [address] / [place] [address] Referring provider name and address: Octavia Herrera PA [address] [place], [place] [phone] Chief Concern, Brief History of Present Illness, and Hospital Course Monika Zimmer is a 65-year-old female with a [facility] with ascites,hepatic encephalopathy, portal hypertension with esophageal varices, chronic kidney disease stage 3b, type 2 diabetes mellitus, coronary artery disease, COPD, obstructive sleep apnea, and depression who was admitted from transplant clinic on 09/17/2025 for evaluation and management of acute kidney injury (CARLOTTA) on chronic kidney disease. The principal diagnosis was CARLOTTA, identified by an increase in creatinine from her baseline of 1.3-1.7 mg/dL to 1.88 mg/dL on admission, with associated BUN elevation and reduced eGFR, in the context of recent recurrent CARLOTTA episodes and a history of decompensated cirrhosis. Evaluation included serial laboratory monitoring, urinalysis revealing WBCs, bacteria, and casts, and clinical assessment forpossible urinary tract infection (UTI). She developed left lower back pain and dysuria, and urinalysis was suggestive of UTI, for which she was treated with intravenous ceftriaxone, later transitioning to ciprofloxacin for therapeutic dosing at discharge. During hospitalization, she underwent scheduled ultrasound-guided paracentesis and right thoracentesis for management of recurrent ascites and hepatic hydrothorax, with removal of 1.8 L of ascitic fluid and 1.4 L of pleural fluid, respectively, and received intravenous albumin post-procedure. Fluidanalysis showed low protein and no evidence of spontaneous bacterial peritonitis. Imaging confirmedsuccessful procedures without acute complications. Her cirrhosis remained decompensated, requiring ongoing management of hepatic encephalopathy with lactulose and rifaximin, and secondary prophylaxis for spontaneous bacterial peritonitis with ciprofloxacin. She was not a candidate for TIPS or liver transplantation due to lack of a suitable caregiver, and palliative care was consulted for goals of care discussions; she declined hospice at this time but agreed to ongoing palliative follow-up. Other issues addressed included chronic anemia and thrombocytopenia, which remained stable and did not require transfusion; moderate protein-calorie malnutrition, for which she received dietary counseling; and poorly controlled diabetes managed with insulin glargine and lispro. She also received physical and occupational therapy evaluations, which recommended subacute rehabilitation due to impaired mobility, activity tolerance, and high fall risk. Her depression and anxiety were noted to have worsened in the context of her prognosis and social situation, and she continued sertraline with support from palliative care. She was discharged in stable condition with plans to return to her snf facility for ongoing care and subacute rehabilitation. Surgeries and Procedures Paracentesis, thoracentesis 09/19 Medication List .. bumetanide 0.5 MG tablet Commonly known as: Bumex Take 1 tablet by mouth 3 times a week. Start taking on: September 25, 2025 calcitriol 0.25 MCG capsule Commonly known as: [...] as: Cipro Take 1 tablet by mouth 2 times a day for 2 days, THEN 1 tablet daily. Start taking on: September 23, 2025 COMPLETE WOMENS PO Take 1 tablet by mouth in the morning. ergocalciferol 1.25 MG (00871 UT) capsule Commonly known as: Vitamin D-2 Take 1 capsule by mouth 1 time per week. INSULIN GLARGINE-YFGN SC Inject 26 Units under the skin every morning. insulin lispro 100 UNIT/ML injection Commonly known as: Admelog Inject 0-10 Units under the skin 3 times a day with meals. See After Visit Summary for instructionson how to take your insulin. lactulose 10 GM/15ML solution Commonly [...] Senokot Take 1 tablet by mouth nightly. sertraline 25 MG tablet Commonly known as: Zoloft Take 1 tablet by mouth daily. Tums E-X 750 MG chewable tablet Generic drug: calcium carbonate EX Chew 1 tablet (750 mg) 1 (one) time each day. Voltaren 1 % topical gel Generic drug: diclofenac Place 2 g on the skin 2 times a day. Apply as directed to left ankle Where to Get Your Medications These medications were sent to [facility] [place], [place] - [address] [facility] [id number] ciprofloxacin 500 MG tablet Information about where to get these medications is not yet available Ask your nurse or doctor about these medications bumetanide 0.5 MG tablet Discharge Diagnosis Medical Problems Active and Resolved Hospital Problems Hospital * (Principal) Acute kidney injury UTI (urinary tract infection) Post Discharge Instructions Please resume taking all of your home medications. Please take bumex as prescribed 3 times weekly (Tuesday). Please take ciprofloxacin two times daily for the next two days, then return to your regular once daily dosing. Limit sodium to <2g per day and ensure adequate hydration. Outpatient Follow-Up Future Appointments Date Time Provider Department Center 09/26/2025 7:30 AM IR US-2 [facility] 09/26/2025 8:30 AM IR US-2 [facility] 10/01/2025 9:00 AM Llilie Pritchard MD [facility]FF[facility] 10/03/2025 12:30 PM [facility] 10/03/2025 1:30 PM IR -2 [facility] 12/20/2025 11:00 AM Miranda Hobson, REVIEW RN ENDOTFBN[facility] Test Results Pending At Discharge None Pertinent Physical Exam At Time of Discharge Physical Exam Constitutional: General: She is not in acute distress. Appearance: Normal appearance. She is ill-appearing. She is not toxic-appearing. HENT: Head: Normocephalic and atraumatic. Nose: Nose normal. Mouth/Throat: Mouth: Mucous membranes are moist. Eyes: Extraocular Movements: Extraocular movements intact. Conjunctiva/sclera: Conjunctivae normal. Cardiovascular: Rate and Rhythm: Normal rate and regular rhythm. Pulses: Normal pulses. Heart sounds: Murmur (Systolic RUSB murmur appreciated) heard. Musculoskeletal: Cervical back: Normal range of motion and neck supple. Neurological: Mental Status: She is alert. Discharge Disposition/Condition Disposition: Nursing facility (specify) [facility] Condition: Stable (s/sx potential problems absent or manageable) I spent >30 minutes of patient care and instruction time in preparation for this discharge. Steff Samayoa MD Internal Medicine PGY1 Cosigned by Latonia Dowell MD at 09/23/2025 2:28 PM EST Associated attestation - Latonia Dowell MD - 09/23/2025 2:28 PM EST I saw and evaluated the patient. I discussed the case with the resident and agree with the findingsand plan as documented. I spent >30 minutes of patient care and instruction time in preparation for this discharge. * Progress Notes - Steff Samayoa MD - 09/22/2025 1:43 PM EST Images from the original note were not included. Hospital Medicine Progress Note Subjective Subjective Ms. Murrell was seen this morning at bedside, sitting up in bed comfortably. She is alert and oriented, feeling well overall. She states her back pain is better and the lidocaine patches have helped. Objective Objective Last Recorded Vitals Blood pressure 120/68, pulse 87, temperature 36.7 ??C (98 ??F), temperature source Oral, resp. rate16, SpO2 98%, not currently . Physical Exam Constitutional: General: She is not in acute distress. Appearance: She is obese. She is ill-appearing (chronic). Eyes: General: No scleral icterus. Cardiovascular: Rate and Rhythm: Normal rate and regular rhythm. Heart sounds: Murmur heard. Comments: Systolic murmur present at RUSB Abdominal: General: Bowel sounds are normal. There is distension. Skin: Capillary Refill: Capillary refill takes less than 2 seconds. Coloration: Skin is not jaundiced. Neurological: Mental Status: She is alert and oriented to person, place, and time. Data Recent Results (from the past 24 hours) POCT glucose meter Collection Time: 09/21/25 5:55 PM Result Value Ref Range POCT Glucose 352 (H) 74 - 99 mg/dL Comment Ash Conveyor Operator ID Eva Negron Device ID [id number] Specimen Type POC Capillary POCT glucose meter Collection Time: 09/21/25 8:03 PM Result Value Ref Range POCT Glucose 251 (H) 74 - 99 mg/dL Comment [employer] Operator ID Deysi Gant Device ID [id number] Specimen Type POC Capillary POCT glucose meter Collection Time: 09/22/25 3:17 AM Result Value Ref Range POCT Glucose 144 (H) 74 - 99 mg/dL Comment [employer] Operator ID Deysi Gant Device ID [id number] Specimen Type POC Capillary POCT glucose meter Collection Time: 09/22/25 8:25 AM Result Value Ref Range POCT Glucose 159 (H) 74 - 99 mg/dL Comment [employer] Con[employer]or Operator ID Candace Gomes Device ID [id number] Specimen Type POC Capillary POCT glucose meter Collection Time: 09/22/25 12:07 PM Result Value Ref Range POCT Glucose 206 (H) 74 - 99 mg/dL Comment [employer] Con[employer]or Operator ID Candace Gomes Device ID [id number] Specimen Type POC Capillary Imaging None Assessment/Plan Assessment & Plan Principal Problem: Acute kidney injury Monika Zimmer is a 65 y.o. female with PMH of [facility] cirrhosis decompensated by ascites, HE, portal HTN with esophageal varices s/p banding, T2DM c/b neuropathy, anxiety/depression, COPD, CAD, CKDIIIb, JONATHAN on nightly bipap, SLE who presents from transplant clinic with concern for CARLOTTA. This condition poses an acute threat to life/bodily function. CARLOTTA on CKD Stage 3b; stable, improving UTI Hx of recurrent CARLOTTA w/ Cr 1.8 on arrival, from 1.3 on 09/03; admission on 08/18/25 with Cr 2.7; prior to that baseline was around ~1.5 Sent from transplant clinic as patient would prefer treatment of CARLOTTA requiring admission' Urine showing WBC 5-10, bacteria present, and >20 casts; began to have flank pain, will treat asUTI although sample looked like a non-clean catch and did not reflex to culture Plan: - encourage PO intake - therapeutic ciprofloxacin dosing for UTI as she is already taking for SBP ppx. Decompensated [facility] cirrhosis c/b h/o Hepatic Encephalopathy, hepatic hydrothorax, Ascites c/b SBP, and Esophageal varices s/p banding -Now needing thoracentesis and para weekly; recent SBP on last admission -EGD 01/09/25 - Multiple small, medium and tortuous varices in the lower third of the esophagus s/p 1 band. Severe, diffuse and mosaic portal hypertensive gastropathy -EGD 02/05/25 - two medium varices in lower third of esophagus with 2 bands placed; single ulcer in lower third of esophagus with clean base, sara III -Not a candidate for TIPS -No longer listed for OLT as of 04/2025 due to concerns with caregiver (son) no longer being able toprovide care; remains in nursing Facility in [place], sister and mother are unable to provide care, verbalizes difficulty with getting patient to take medications and concerns with quality of life post transplant -MELD 3.0: 29 and MELD-Na: 28 Plan: - Continue Rifaximin 550 mg BID, lactulose, encouraged compliance - s/p paracentesis and thora w/ IR on 09/19. Low protein on ascites fluid and prior SBP warrants SBP ppx with ciprofloxacin Chronic Anemia Thrombocytopenia - Hgb 10.5 and Plt 52, both appear approximately at baseline - likely due to cirrhosis and known kidney disease Plan: - transfuse to Hgb >7, platelets >10k or >50k if signs of bleeding Anxiety and Depression - Chronic, worsening - recent worsening depression 2/2 coming off of liver transplant list Plan: - home Sertraline 25 mg - palliative following, patient not ready to pursue hospice at this time Moderate protein-calorie malnutrition Counseled on the importance of increasing protein intake, advised to get 1.2-1.5 gram/kg a day. Advsied to take late night snack/shake and upon waking up and several times a day Plan: - nutrition to follow T2DM c/b Neuropathy - Home regimen: Insulin glargine 24 units daily and lispro TID with sliding scale Plan: - Glargine 24u nightly - SSI while inpatient - low carb diet COPD JONATHAN - wears BiPAP nightly Chronic Medical Conditions: GERD: home Tums 750 mg daily Allergies: Continue home zyrtec 10 mg by mouth daily Vitamin-D deficiency: Was reportedly getting 50,000U daily instead of weekly at nursing facility. Vit level 38.3 CAD: Crestor being held since most recent nephrology visit. Continue to hold Constipation: Continue home senna and Miralax Osteoporosis: PT/OT recommending subacute rehab Dispo: return to SNF in [place] Care today included: HIGHRISK: High risk: Escalation of level of care: continue inpatient Steff Samayoa MD Internal Medicine PGY1 Cosigned by Latonia Dowell MD at 09/22/2025 5:33 PM EST Associated attestation - Latonia Dowell MD - 09/22/2025 5:33 PM EST I saw and evaluated the patient. I discussed the case with the resident/fellow and agree with the findings and plan as documented. * Care Plan - Eva Negorn RN - 09/22/2025 10:05 AM EST Problem: Adult Inpatient Plan of Care Goal: Plan of Care Review Outcome: Ongoing, Progressing Flowsheets (Taken 09/22/2025 1002) Progress: no change Outcome Evaluation: Pt will verbalize understanding and actively participate in her care. Plan of Care Reviewed With: patient Goal: Patient-Specific Goal (Individualized) Flowsheets (Taken 09/22/2025 09) Patient/Family-Specific Goals (Include Timeframe): Pt will no texhibit any untoward s/sx throughoutthe shift Individualized Care Needs: safety Anxieties, Fears or Concerns: none stated Goal: Absence of Hospital-Acquired Illness or Injury Outcome: Ongoing, Progressing Intervention: Identify and Manage Fall Risk Flowsheets (Taken 09/22/2025 09) Safety Promotion/Fall Prevention: activity supervised assistive device/personal items within reach clutter-free environment maintained fall prevention program maintained lighting adjusted room organization consistent safety round/check completed nonskid shoes/slippers when out of bed Problem: Fall Injury Risk Goal: Absence of Fall and Fall-Related Injury Outcome: Ongoing, Progressing Intervention: Identify and Manage Contributors Flowsheets (Taken 09/22/20251001) Medication Review/Management: medications reviewed Self-Care Promotion: independence encouraged BADL personal objects within reach BADL personal routines maintained meal set-up provided adaptive equipment use encouraged Problem: Self-Care Deficit Goal: Improved Ability to Complete Activities of Daily Living Outcome: Ongoing, Progressing Intervention: Promote Activity and Functional [place] Flowsheets (Taken 09/22/20251001) Activity Assistance Provided: assistance, 1 person Adaptive Equipment Use: use encouraged Self-Care Promotion: independence encouraged BADL personal objects within reach BADL personal routines maintained meal set-up provided adaptive equipment use encouraged Problem: Skin Injury Risk Increased Goal: Skin Health and Integrity Outcome: Ongoing, Progressing Intervention: Optimize Skin Protection Flowsheets (Taken 09/22/2025 1002) Activity Management: activity adjusted per tolerance previous patient education reinforced Pressure Reduction Devices: positioning supports utilized pressure-redistributing mattress utilized Skin Protection: drying agents applied skin sealant/moisture barrier applied Head of Bed (HOB) Positioning: HOB elevated * Care Plan - Viola Knutson RN - 09/22/2025 1:33 AM EDT Problem: Adult Inpatient Plan of Care Goal: Plan of Care Review Outcome: Ongoing, Progressing Flowsheets (Taken 09/22/2025126) Progress: no change Outcome Evaluation: Pt will actively participate in her care. Plan of Care Reviewed With: patient Goal: Patient-Specific Goal (Individualized) Outcome: Ongoing, Progressing Flowsheets (Taken 09/22/2025 0000) Patient/Family-Specific Goals (Include Timeframe): Pt will remain free from injury for remainder ofshift Individualized Care Needs: Safety Anxieties, Fears or Concerns: None stated Goal: Absence of Hospital-Acquired Illness or Injury Outcome: Ongoing, Progressing Intervention: Identify and Manage Fall Risk Flowsheets (Taken 09/22/2025) Safety Promotion/Fall Prevention: activity supervised clutter-free environment maintained fall prevention program maintained lighting adjusted mobility aid in reach nonskid shoes/slippers when out of bed room organization consistent safety round/check completed toileting scheduled assistive device/personal items within reach Intervention: Prevent Skin Injury Flowsheets (Taken 09/22/2025126) Body Position: weight shifting Skin Protection: incontinence pads utilized Intervention: Prevent and Manage VTE (Venous Thromboembolism) Risk Flowsheets (Taken 09/22/2025126) VTE Prevention/Management: medication Intervention: Prevent Infection Flowsheets (Taken 09/22/2025126) Infection Prevention: environmental surveillance performed hand hygiene promoted rest/sleep promoted Goal: Optimal Comfort and Wellbeing Outcome: Ongoing, Progressing Intervention: Monitor Pain and Promote Comfort Flowsheets (Taken 09/21/20252004) Pain Management Interventions: care clustered position adjusted pillow support provided Intervention: Provide Person-Centered Care Flowsheets (Taken 09/22/2025126) Trust Relationship/Rapport: care explained choices provided emotional support provided empathic listening provided questions answered questions encouraged reassurance provided thoughts/feelings acknowledged Problem: Acute Kidney Injury/Impairment Goal: Fluid and Electrolyte Balance Outcome: Ongoing, Progressing Intervention: Monitor and Manage Fluid and Electrolyte Balance Flowsheets (Taken 09/22/2025126) Fluid/Electrolyte Management: fluids provided Goal: Improved Oral Intake Outcome: Ongoing, Progressing Intervention: Promote and Optimize Oral Intake Flowsheets (Taken 09/22/2025126) Oral Nutrition Promotion: adaptive equipment use encouraged physical activity promoted rest periods promoted Nutrition Interventions: food preferences provided Goal: Effective Renal Function Outcome: Ongoing, Progressing Intervention: Monitor and Support Renal Function Flowsheets (Taken 09/22/2025126) Medication Review/Management: medications reviewed Problem: Fall Injury Risk Goal: Absence of Fall and Fall-Related Injury Outcome: Ongoing, Progressing Intervention: Identify and Manage Contributors Flowsheets (Taken 09/22/2025126) Medication Review/Management: medications reviewed Self-Care Promotion: independence encouraged BADL personal objects within reach Intervention: Promote Injury-Free Environment Flowsheets (Taken 09/22/2025 0000) Safety Promotion/Fall Prevention: activity supervised clutter-free environment maintained fall prevention program maintained lighting adjusted mobility aid in reach nonskid shoes/slippers when out of bed room organization consistent safety round/check completed toileting scheduled assistive device/personal items within reach Problem: Self-Care Deficit Goal: Improved Ability to Complete Activities of Daily Living Outcome: Ongoing, Progressing Intervention: Promote Activity and Functional [place] Flowsheets (Taken 09/22/2025126) Activity Assistance Provided: assistance, 1 person Self-Care Promotion: independence encouraged BADL personal objects within reach Problem: Skin Injury Risk Increased Goal: Skin Health and Integrity Outcome: Ongoing, Progressing Intervention: Optimize Skin Protection Flowsheets (Taken 09/22/2025126) Activity Management: activity adjusted per tolerance activity encouraged Pressure Reduction Techniques: frequent weight shift encouraged heels elevated off bed Pressure Reduction Devices: positioning supports utilized Skin Protection: incontinence pads utilized Intervention: Promote and Optimize Oral Intake Flowsheets (Taken 09/22/2025126) Oral Nutrition Promotion: adaptive equipment use encouraged physical activity promoted rest periods promoted Nutrition Interventions: food preferences provided * Care Plan - Eva Negron RN - 09/21/2025 10:11 AM EDT Problem: Adult Inpatient Plan of Care Goal: Plan of Care Review Outcome: Ongoing, Progressing Flowsheets (Taken 09/21/2025 1010) Progress: improving Outcome Evaluation: Pt will understand and actively participate in her care. Plan of Care Reviewed With: patient Goal: Patient-Specific Goal (Individualized) Outcome: Ongoing, Progressing Flowsheets (Taken 09/21/2025 0808) Patient/Family-Specific Goals (Include Timeframe): Pt will no texhibit any untoward s/sx throughoutthe shift Individualized Care Needs: safety Anxieties, Fears or Concerns: none stated Problem: Acute Kidney Injury/Impairment Goal: Fluid and Electrolyte Balance Outcome: Ongoing, Progressing Intervention: Monitor and Manage Fluid and Electrolyte Balance Flowsheets (Taken 09/21/2025 1010) Fluid/Electrolyte Management: fluids provided Problem: Fall Injury Risk Goal: Absence of Fall and Fall-Related Injury Outcome: Ongoing, Progressing Intervention: Identify and Manage Contributors Flowsheets (Taken 09/21/2025 1010) Medication Review/Management: medications reviewed Self-Care Promotion: independence encouraged BADL personal routines maintained adaptive equipment use encouraged BADL personal objects within reach meal set-up provided Problem: Skin Injury Risk Increased Goal: Skin Health and Integrity Outcome: Ongoing, Progressing Intervention: Optimize Skin Protection Flowsheets (Taken 09/21/2025 1010) Activity Management: activity adjusted per tolerance ambulated to bathroom activity encouraged Pressure Reduction Techniques: frequent weight shift encouraged rest period provided between sit times Pressure Reduction Devices: positioning supports utilized pressure-redistributing mattress utilized specialty bed utilized Skin Protection: protective footwear used skin sealant/moisture barrier applied drying agents applied Head of Bed (HOB) Positioning: HOB at 20-30 degrees * Progress Notes - Steff Samayoa MD - 09/21/2025 8:46 AM EDT Images from the original note were not included. [facility] Medicine Progress Note Subjective Subjective Ms. Murrell was seen this morning at bedside, sitting up in bed about to eat breakfast. She is alertand oriented, feeling well other than some mid back pain. She states she is eating well. Objective Objective Last Recorded Vitals Blood pressure 110/67, pulse 85, temperature 36.6 ??C (97.8 ??F), temperature source Oral, resp. rate 19, SpO2 97%, not currently . Physical Exam Constitutional: General: She is not in acute distress. Appearance: She is obese. She is ill-appearing (chronic). Eyes: General: No scleral icterus. Cardiovascular: Rate and Rhythm: Normal rate and regular rhythm. Heart sounds: Murmur heard. Comments: Systolic murmur present at RUSB Abdominal: General: Bowel sounds are normal. There is distension. Tenderness: There is left CVA tenderness. Skin: Capillary Refill: Capillary refill takes less than 2 seconds. Coloration: Skin is not jaundiced. Neurological: Mental Status: She is alert and oriented to person, place, and time. Data Recent Results (from the past 24 hours) POCT glucose meter Collection Time: 09/20/25 11:13 AM Result Value Ref Range POCT Glucose 160 (H) 74 - 99 mg/dL Comment [employer] Conveyor Operator ID Kacie Carver Device ID [id number] Specimen Type POC Capillary POCT glucose meter Collection Time: 09/20/25 5:58 PM Result Value Ref Range POCT Glucose 206 (H) 74 - 99 mg/dL Comment [employer] Con[employer]or Operator ID Kacie Carver Device ID [id number] Specimen Type POC Capillary POCT glucose meter Collection Time: 09/20/25 8:05 PM Result Value Ref Range POCT Glucose 218 (H) 74 - 99 mg/dL Comment Ash Conveyor Operator ID Yamile Carmichael Device ID [id number] Specimen Type POC Capillary POCT glucose meter Collection Time: 09/21/25 7:39 AM Result Value Ref Range POCT Glucose 124 (H) 74 - 99 mg/dL Comment [employer]veyor Operator ID Kacie Carver Device ID [id number] Specimen Type POC Capillary Imaging Assessment/Plan Assessment & Plan Principal Problem: Acute kidney injury Monika Zimmer is a 65 y.o. female with PMH of [facility] cirrhosis decompensated by ascites, HE, portal HTN with esophageal varices s/p banding, T2DM c/b neuropathy, anxiety/depression, COPD, CAD, CKDIIIb, JONATHAN on nightly bipap, SLE who presents from transplant clinic with concern for CARLOTTA. This condition poses an acute threat to life/bodily function. CARLOTTA on CKD Stage 3b; stable UTI Hx of recurrent CARLOTTA w/ Cr 1.8 on arrival, from 1.3 on 09/03; admission on 08/18/25 with Cr 2.7; prior to that baseline was around ~1.5 Sent from transplant clinic as patient would prefer treatment of CARLOTTA requiring admission' Urine showing WBC 5-10, bacteria present, and >20 casts; began to have flank pain, will treat asUTI although sample looked like a non-clean catch and did not reflex to culture Plan: - encourage PO intake - therapeutic ciprofloxacin dosing for UTI as she is already taking for SBP ppx. - If CARLOTTA not improving, will consider albumin challenge for HRS De[facility]ensated [facility] cirrhosis c/b h/o Hepatic Encephalopathy, hepatic hydrothorax, Ascites c/b SBP, and Esophageal varices s/p banding -Now needing thoracentesis and para weekly; recent SBP on last admission -EGD 01/09/25 - Multiple small, medium and tortuous varices in the lower third of the esophagus s/p 1 band. Severe, diffuse and mosaic portal hypertensive gastropathy -EGD 02/05/25 - two medium varices in lower third of esophagus with 2 bands placed; single ulcer in lower third of esophagus with clean base, sara III -Not a candidate for TIPS -No longer listed for OLT as of 04/2025 due to concerns with caregiver (son) no longer being able toprovide care; remains in nursing Facility in [place], sister and mother are unable to provide care, verbalizes difficulty with getting patient to take medications and concerns with quality of life post transplant -MELD 3.0: 29 and MELD-Na: 28 Plan: - Continue Rifaximin 550 mg BID, lactulose, encouraged compliance - s/p paracentesis and thora w/ IR on 09/19. Low protein on ascites fluid and prior SBP warrants SBP ppx with ciprofloxacin Chronic Anemia Thrombocytopenia - Hgb 10.5 and Plt 52, both appear approximately at baseline - likely due to cirrhosis and known kidney disease Plan: - transfuse to Hgb >7, platelets >10k or >50k if signs of bleeding Anxiety and Depression - Chronic, worsening - recent worsening depression as son has given up on helping patient Plan: - home Sertraline 25 mg - palliative following, patient not ready to pursue hospice at this time Moderate protein-calorie malnutrition Counseled on the importance of increasing protein intake, advised to get 1.2-1.5 gram/kg a day. Advsied to take late night snack/shake and upon waking up and several times a day Plan: - nutrition to follow T2DM c/b Neuropathy - Home regimen: Insulin glargine 24 units daily and lispro TID with sliding scale Plan: - Glargine 24u nightly - SSI while inpatient - low carb diet COPD JONATHAN - wears BiPAP nightly Plan: - BiPAP nightly; patient may bring home machine in w/ RT to manage Osteoporosis - DEXA scan showed osteoporosis Plan: - consult PT/OT for eval and treatment of frailty Chronic Medical Conditions: GERD: home Tums 750 mg daily Allergies: Continue home zyrtec 10 mg by mouth daily Vitamin-D deficiency: Was reportedly getting 50,000U daily instead of weekly at nursing facility. Vit level 38.3 CAD: Crestor being held since most recent nephrology visit. Continue to hold Constipation: Continue home senna and Miralax Dispo: return to SNF in [facility] today included: HIGHRISK: High risk: Escalation of level of care: continue inpatient Steff Samayoa MD Internal Medicine PGY1 Cosigned by Latonia Dowell MD at 09/21/2025 4:34 PM EDT Associated attestation - Latonia Dowell MD - 09/21/2025 4:34 PM EDT I saw and evaluated the patient. I discussed the case with the resident/fellow and agree with the findings and plan as documented. * Care Plan - Viola Knutson RN - 09/20/2025 10:03 PM EDT Problem: Adult Inpatient Plan of Care Goal: Plan of Care Review Outcome: Ongoing, Progressing Flowsheets Taken 09/20/2025 2201 Progress: improving Plan of Care Reviewed With: patient Taken 09/19/2025 2320 Outcome Evaluation: Continue plan of care Goal: Patient-Specific Goal (Individualized) Outcome: Ongoing, Progressing Flowsheets (Taken 09/20/20251999) Patient/Family-Specific Goals (Include Timeframe): Pt will remain free from injury for remainder ofshift Individualized Care Needs: Safety Anxieties, Fears or Concerns: None stated Goal: Absence of Hospital-Acquired Illness or Injury Outcome: Ongoing, Progressing Intervention: Identify and Manage Fall Risk Flowsheets (Taken 09/20/20251999) Safety Promotion/Fall Prevention: activity supervised clutter-free environment maintained fall prevention program maintained lighting adjusted mobility aid in reach nonskid shoes/slippers when out of bed room organization consistent safety round/check completed toileting scheduled assistive device/personal items within reach Intervention: Prevent Skin Injury Flowsheets (Taken 09/20/20252200) Body Position: weight shifting Skin Protection: incontinence pads utilized Intervention: Prevent and Manage VTE (Venous Thromboembolism) Risk Flowsheets (Taken 09/20/20252200) VTE Prevention/Management: medication Intervention: Prevent Infection Flowsheets (Taken 09/20/20252200) Infection Prevention: environmental surveillance performed hand hygiene promoted rest/sleep promoted Goal: Optimal Comfort and Wellbeing Outcome: Ongoing, Progressing Intervention: Monitor Pain and Promote Comfort Flowsheets (Taken 09/20/20252200) Pain Management Interventions: quiet environment facilitated rest relaxation techniques promoted care clustered emotional support Intervention: Provide Person-Centered Care Flowsheets (Taken 09/20/20252200) Trust Relationship/Rapport: care explained choices provided emotional support provided empathic listening provided questions answered questions encouraged reassurance provided thoughts/feelings acknowledged Problem: Acute Kidney Injury/Impairment Goal: Fluid and Electrolyte Balance Outcome: Ongoing, Progressing Intervention: Monitor and Manage Fluid and Electrolyte Balance Flowsheets (Taken 09/20/20252200) Fluid/Electrolyte Management: fluids provided Goal: Improved Oral Intake Outcome: Ongoing, Progressing Intervention: Promote and Optimize Oral Intake Flowsheets (Taken 09/20/20252200) Oral Nutrition Promotion: adaptive equipment use encouraged physical activity promoted rest periods promoted Nutrition Interventions: food preferences provided Goal: Effective Renal Function Outcome: Ongoing, Progressing Intervention: Monitor and Support Renal Function Flowsheets (Taken 09/20/20252200) Stabilization Measures: legs elevated Medication Review/Management: medications reviewed Problem: Fall Injury Risk Goal: Absence of Fall and Fall-Related Injury Outcome: Ongoing, Progressing Intervention: Identify and Manage Contributors Flowsheets (Taken 09/20/20252200) Medication Review/Management: medications reviewed Self-Care Promotion: independence encouraged BADL personal objects within reach Intervention: Promote Injury-Free Environment Flowsheets (Taken 09/20/20251999) Safety Promotion/Fall Prevention: activity supervised clutter-free environment maintained fall prevention program maintained lighting adjusted mobility aid in reach nonskid shoes/slippers when out of bed room organization consistent safety round/check completed toileting scheduled assistive device/personal items within reach Problem: Self-Care Deficit Goal: Improved Ability to Complete Activities of Daily Living Outcome: Ongoing, Progressing Intervention: Promote Activity and Functional [place] Flowsheets (Taken 09/20/20252200) Activity Assistance Provided: assistance, 1 person Adaptive Equipment Use: use encouraged used independently Self-Care Promotion: independence encouraged BADL personal objects within reach Problem: Skin Injury Risk Increased Goal: Skin Health and Integrity Outcome: Ongoing, Progressing Intervention: Optimize Skin Protection Flowsheets (Taken 09/20/20252200) Activity Management: activity adjusted per tolerance Pressure Reduction Techniques: frequent weight shift encouraged heels elevated off bed Skin Protection: incontinence pads utilized Intervention: Promote and Optimize Oral Intake Flowsheets (Taken 09/20/20252200) Oral Nutrition Promotion: adaptive equipment use encouraged physical activity promoted rest periods promoted Nutrition Interventions: food preferences provided * Progress Notes - Lea Flores RN - 09/20/2025 12:37 PM EDT Patient will return to [facility]. CM was not able to obtain transportation until Tuesday09/23/25 @ 10 am. CM will continue to follow. * Care Plan - Skye Kwan - 09/20/2025 10:14 AM EDT Problem: Adult Inpatient Plan of Care Goal: Plan of Care Review Outcome: Ongoing, Progressing Flowsheets (Taken 09/20/2025 1012) Progress: improving Plan of Care Reviewed With: patient Goal: Patient-Specific Goal (Individualized) Outcome: Ongoing, Progressing Flowsheets (Taken 09/20/2025 0800) Patient/Family-Specific Goals (Include Timeframe): pt will remain free from falls and injury this shift Individualized Care Needs: safety Anxieties, Fears or Concerns: none stated Goal: Absence of Hospital-Acquired Illness or Injury Outcome: Ongoing, Progressing Intervention: Identify and Manage Fall Risk Flowsheets (Taken 09/20/20251011) Safety Promotion/Fall Prevention: activity supervised Intervention: Prevent Skin Injury Flowsheets Taken 09/20/20251011 Skin Protection: incontinence pads utilized Taken 09/20/2025 08 Body Position: weight shifting Intervention: Prevent and Manage VTE (Venous Thromboembolism) Risk Flowsheets (Taken 09/20/2025 08) VTE Prevention/Management: medication Intervention: Prevent Infection Flowsheets (Taken 09/20/20251011) Infection Prevention: environmental surveillance performed Goal: Optimal Comfort and Wellbeing Outcome: Ongoing, Progressing Intervention: Monitor Pain and Promote Comfort Flowsheets (Taken 09/20/20251011) Pain Management Interventions: rest Intervention: Provide Person-Centered Care Flowsheets (Taken 09/20/20251011) Trust Relationship/Rapport: care explained Problem: Acute Kidney Injury/Impairment Goal: Fluid and Electrolyte Balance Outcome: Ongoing, Progressing Intervention: Monitor and Manage Fluid and Electrolyte Balance Flowsheets (Taken 09/20/20251011) Fluid/Electrolyte Management: fluids provided Goal: Improved Oral Intake Outcome: Ongoing, Progressing Intervention: Promote and Optimize Oral Intake Flowsheets (Taken 09/20/20251011) Oral Nutrition Promotion: rest periods promoted Nutrition Interventions: frequent small meals provided Goal: Effective Renal Function Outcome: Ongoing, Progressing Intervention: Monitor and Support Renal Function Flowsheets (Taken 09/20/20251011) Stabilization Measures: legs elevated Medication Review/Management: medications reviewed Problem: Fall Injury Risk Goal: Absence of Fall and Fall-Related Injury Outcome: Ongoing, Progressing Intervention: Identify and Manage Contributors Flowsheets (Taken 09/20/20251011) Medication Review/Management: medications reviewed Self-Care Promotion: independence encouraged Intervention: Promote Injury-Free Environment Flowsheets (Taken 09/20/20251011) Safety Promotion/Fall Prevention: activity supervised Problem: Self-Care Deficit Goal: Improved Ability to Complete Activities of Daily Living Outcome: Ongoing, Progressing Intervention: Promote Activity and Functional [place] Flowsheets (Taken 09/20/20251011) Activity Assistance Provided: assistance, 1 person Adaptive Equipment Use: use encouraged Self-Care Promotion: independence encouraged Problem: Skin Injury Risk Increased Goal: Skin Health and Integrity Outcome: Ongoing, Progressing Intervention: Optimize Skin Protection Flowsheets Taken 09/20/2025 1012 Pressure Reduction Techniques: frequent weight shift encouraged Pressure Reduction Devices: positioning supports utilized Skin Protection: incontinence pads utilized Taken 09/20/2025 0800 Activity Management: activity adjusted per tolerance Head of Bed (HOB) Positioning: HOB elevated Intervention: Promote and Optimize Oral Intake Flowsheets (Taken 09/20/2025 1012) Oral Nutrition Promotion: rest periods promoted Nutrition Interventions: frequent small meals provided * Progress Notes - Ra Mixon - 09/20/2025 9:30 AM EDT PHYSICAL THERAPY TREATMENT PATIENT DATA Patient Name Monika Zimmer Session Date 09/20/2025 Total Treatment Time 25 min PT Discharge Recommendations Subacute rehab PT Equipment Recommendations Defer to facility PRECAUTIONS Weight Bearing Precautions (if applicable) ROM Restrictions (if applicable) Medical Precautions Yes Medical Precautions: Fall precautions HOME LIVING/SET-UP Lives With Home Type detention facility Home Equipment Rollator, Rolling walker, Wheelchair-manual Home Layout One level Bathroom Layout Additional Comments Patient reports that she has been in a faclity for the past ~2 months as she has sold her house. She reports she typically walks around the facility with a rollator but has gottenweaker over the past few days. She got assistance with bathing due to fear of falling, she stated she is typically able to get herself dressed but sometimes requests help when feeling tired. PRIOR LEVEL OF FUNCTION Receives help from Caregiver Level of Mobility Ambulatory- household only Mobility [place] Assistance with gait with device History of Falls No ADL Performance ADL Performance: Needs assistance Bathing: Needs assist Upper Body Dressing: Needs assist Lower Body Dressing: Needs assist Grooming: Independent Toileting: Independent Eating: Independent Home Management Skills: Needs assist PRESENTATION Oxygen Oxygen Therapy: Supplemental oxygen O2 Delivery Method: Nasal cannula O2 Flow Rate (L/min): 2 L/min Lines and Tubes Peripheral IV 09/17/25 Anterior;Right Forearm (Active) Pre-Session Supine, Head of bed elevated, Lines intact, Bed alarm RN agreeable Post-Session Sitting in chair, Lines intact, Call light in reach, Chair alarm Needs met. Bracing (if applicable) SUBJECTIVE PARTICIPANTS IN CARE Visitors Present No, Subjective Report Pt has NOT been: * Ambulating hallway distances since last PT treatment. Pt HAS been: * Ambulating in-room distances * Transferring Bed <> Chair since last PT treatment. Pt remains unaware when pt may be discharged from [facility]. Automatic Glove Turner And Former (if applicable) OBJECTIVE & INTERVENTIONS PAIN Pt was without complaints of pain throughout the PT treatment. Prior to PT's departure: * rest was provided * pt was positioned for comfort * pillow support was provided DELIRIUM SCREENING RASS: Alert and calm Feature 1: Acute Onset or Fluctuating Course: Negative Feature 3: Altered Level of Consciousness: Negative Overall CAM-ICU/PCAM-ICU: Negative THERAPEUTIC ACTIVITY Treatment Minutes 17 BED MOBILITY Level of [place] Physical/Non- physical Assist Adaptive Equipment Utilized Rolling/ Turning Scooting/ Bridging Stand-by assist Verbal Cues, Set-up required Supine to Sit Stand-by assist Verbal Cues, Set-up required, HOB elevated Sit to Supine Interventions TRANSFERS Level of [place] Physical/Non- physical Assist Adaptive Equipment Utilized Sit to Stand Contact guard Verbal Cues, Set-up required Rollator Stand to sit Contact guard Set-up required, Minimal cues Rollator Bed to Chair Toilet Transfer Shower Transfer Interventions AMBULATION Level of [place] Distance Adaptive Equipment Utilized Ambulation Contact guard assist, Minimal verbal cues, Minimal tactile cues 150 ft Rollator Comments Decreased rogers, forward posture. BUDGET SPECIALIST presence was necessary for: * managing lines * progressing patient ambulation distances * monitoring patient vital sign stability * decreasing patient's risk of falling while progressing pt's distances THERAPEUTIC EXERCISE Treatment Minutes 8 In Sitting - Supported position, pt performed x10 reps of the following exercises bilaterally: * Glut Sets x2-3 sec holds * Marching * Hip Abduction-Adductions * Long Arc Quads * Ankle Pumps Verbal cuing and assistance was required for proper technique and for maximizing muscle contractibility and strength. ASSESSMENT Pt is improving, as noted by: less assistance was required for pt to complete some or all transfers, pt demonstrated improved sitting and/or standing balance, and pt ambulated increased walking distances and with less assistance during this PT treatment compared to last PT treatment. Pt has the following impairments: impaired activity tolerance, which is limiting the pt from performing independent functional mobility. Patient may benefit from Subacute Rehab for the following reasons: Pt remains as a high fall risk and is unsafe for discharge to home Pt ambulates at a slow pace and cannot perform ADL and iADLs functionally without prolonged rests Pt would benefit from further instruction improving functional transfers and ambulation PT RECOMMENDATIONS Discharge Destination Subacute rehab Discharge Equipment Defer to facility PLAN Pt may continue to benefit from skilled PT for addressing patient's impairments and reducing patient's participation restrictions and activity limitations. PT GOALS PT GOAL DETAILS DATE ASSESSED STATUS PROGRESS PT Goal 1: Pt will demonstrate the ability to perform transfers with SBA and LRAD PT Goal 1 Established Date: 09/18/25 PT Goal 1 Time Frame: 2 weeks PT Goal 2: Pt will demonstrate the ability to amb 300ft with SBA and LRAD PT Goal 2 Established Date: 09/18/25 PT Goal 2 Time Frame: 2 weeks PT Goal 3: Pt will demonstrate the ability to tolerate 15 minutes in total of static/dynamic standing activity with SBA and LRAD PT Goal 3 Established Date: 09/18/25 PT Goal 3 Time Frame: 2 weeks PT Goal 4: Patient will be independent with HEP and discharge recommendations for ease of transition to next level of care. PT Goal 4 Established Date: 09/18/25 PT Goal 4 Time Frame: 2 weeks Written by Ra Mixon on 09/20/25 at 2:21 PM. * Progress Notes - Ck Hicks MD - 09/20/2025 7:19 AM EDT Images from the original note were not included. Hospital Medicine Progress Note Subjective Subjective Patient seen at bedside, very depressed regarding overall prognosis and next steps. Had a large number of questions regarding hospice and palliative. States back pain is improved. Denies dysuria or urinary complaints. Patient amenable to returning to snf facility at discharge but statesthat she does not want to go back soon, could not clarify why. Objective Objective Last Recorded Vitals Blood pressure 114/66, pulse 57, temperature 36.8 ??C (98.3 ??F), temperature source Oral, resp. rate 18, SpO2 96%, not currently . Physical Exam Constitutional: General: She is not in acute distress. Appearance: She is obese. She is ill-appearing (chronic). Eyes: General: No scleral icterus. Cardiovascular: Rate and Rhythm: Normal rate and regular rhythm. Abdominal: General: Bowel sounds are normal. There is distension. Tenderness: There is left CVA tenderness. Skin: Capillary Refill: Capillary refill takes less than 2 seconds. Coloration: Skin is not jaundiced. Neurological: Mental Status: She is alert and oriented to person, place, and time. Data Recent Results (from the past 24 hours) POCT glucose meter Collection Time: 09/19/25 7:34 AM Result Value Ref Range POCT Glucose 126 (H) 74 - 99 mg/dL Comment Ash Conveyor Operator ID Kacie Carver Device ID [id number] Specimen Type POC Capillary Body Fluid Cell Count With Diff - Ascites Collection Time: 09/19/25 9:18 AM Result Value Ref Range Color, Body fluid [place] Appearance, Body fluid Cloudy (A) Volume, Body fluid 25.0 cc Fluid Container Specimen received in miscellaneous container Red Blood Cell Count, Body fluid 5,000 uL Total Nucleated Cell Count, Body fluid 99 uL Neutrophils %, Body fluid 1 % Lymphocytes %, Body fluid 80 % Monocytes/Macrophages %, Body fluid 16 % Eosinophils %, Body fluid 0 % Lining/Mesothelial Cells %, Body fluid 3 % Neutrophils Absolute (PMN), Body fluid 1 uL Lymphocytes Absolute, Body fluid 79 uL Monocytes/Macrophages Absolute, Body fluid 16 uL Eosinophils Absolute, Body fluid 0 uL Basophils Absolute, Body fluid 0 uL Lining/Mesothelial Cells Absolute, Body fluid 3 uL Basophils %, Body fluid 0 % Body Fluid Culture and Gram Stain Collection Time: 09/19/25 9:18 AM Specimen: Peritoneal/Abdominal/Ascites Fluid; Peritoneal Fluid Result Value Ref Range Gram Stain Result Rare Polymorphonuclear leukocytes Gram Stain Result No organisms seen Albumin - Ascites Collection Time: 09/19/25 9:18 AM Result Value Ref Range Albumin, Peritoneal Fluid 0.5 g/dL Glucose - Ascites Collection Time: 09/19/25 9:18 AM Result Value Ref Range Glucose, Fluid 120 mg/dL LDH - Ascites Collection Time: 09/19/25 9:18 AM Result Value Ref Range LDH, Fluid 40 U/L Protein - Ascites Collection Time: 09/19/25 9:18 AM Result Value Ref Range Total Protein, Fluid 0.8 g/dL Body Fluid Cell Count w/ Diff - Pleural Right Collection Time: 09/19/25 10:10 AM Result Value Ref Range Color, Body fluid [place] Appearance, Body fluid Cloudy (A) Volume, Body fluid 8.0 cc Fluid Container Tube 1 Red Blood Cell Count, Body fluid 8,000 uL Total Nucleated Cell Count, Body fluid 133 uL Neutrophils %, Body fluid 2 % Lymphocytes %, Body fluid 91 % Monocytes/Macrophages %, Body fluid 6 % Eosinophils %, Body fluid 0 % Lining/Mesothelial Cells %, Body fluid 1 % Neutrophils Absolute (PMN), Body fluid 3 uL Lymphocytes Absolute, Body fluid 121 uL Monocytes/Macrophages Absolute, Body fluid 8 uL Eosinophils Absolute, Body fluid 0 uL Basophils Absolute, Body fluid 0 uL Lining/Mesothelial Cells Absolute, Body fluid 1 uL Basophils %, Body fluid 0 % Body Fluid Culture and Gram Stain - Pleural Right Collection Time: 09/19/25 10:11 AM Specimen: Pleural/Thoracentesis Fluid; Pleural Fluid Result Value Ref Range Gram Stain Result No organisms seen Gram Stain Result No polymorphonuclear leukocytes seen Total Protein, Pleural Fluid - Pleural Right Collection Time: 09/19/25 10:11 AM Result Value Ref Range Total Protein, Fluid 1.3 g/dL Lactate Dehydrogenase, Pleural Fluid - Right Collection Time: 09/19/25 10:11 AM Result Value Ref Range LDH, Fluid 54 U/L Basic metabolic panel Collection Time: 09/19/25 3:33 PM Result Value Ref Range Glucose, Plasma 264 (H) 74 - 99 mg/dL BUN, Plasma 44 (H) 8 - 23 mg/dL Creatinine, Plasma 1.72 (H) 0.60 - 1.10 mg/dL BUN/Creatinine Ratio 26 Sodium, Plasma 136 136 - 145 mmol/L Potassium, Plasma 4.2 3.6 - 4.9 mmol/L Chloride, Plasma 99 97 - 107 mmol/L CO2, Plasma 25 22 - 29 mmol/L Anion Gap 12 6 - 16 mmol/L Total Calcium, Plasma 8.8 (L) 8.9 - 10.2 mg/dL eGFRcr 33.1 mL/min/1.73m*2 Lavender Top Collection Time: 09/19/25 3:33 PM Result Value Ref Range Extra Hold for add-ons POCT glucose meter Collection Time: 09/19/25 5:28 PM Result Value Ref Range POCT Glucose 314 (H) 74 - 99 mg/dL Comment Ash Conveyor Operator ID Kacie Carver Device ID [id number] Specimen Type POC Capillary POCT glucose meter Collection Time: 09/19/25 7:52 PM Result Value Ref Range POCT Glucose 269 (H) 74 - 99 mg/dL Comment Ash Conveyor Operator ID Margarette Angel Device ID [id number] Specimen Type POC Capillary POCT glucose meter Collection Time: 09/20/25 2:54 AM Result Value Ref Range POCT Glucose 106 (H) 74 - 99 mg/dL Comment Ash Conveyor Operator ID Margarette Angel Device ID [id number] Specimen Type POC Capillary Basic metabolic panel Collection Time: 09/20/25 3:38 AM Result Value Ref Range Glucose, Plasma 100 (H) 74 - 99 mg/dL BUN, Plasma 44 (H) 8 - 23 mg/dL Creatinine, Plasma 1.68 (H) 0.60 - 1.10 mg/dL BUN/Creatinine Ratio 26 Sodium, Plasma 138 136 - 145 mmol/L Potassium, Plasma 3.7 3.6 - 4.9 mmol/L Chloride, Plasma 103 97 - 107 mmol/L CO2, Plasma 24 22 - 29 mmol/L Anion Gap 11 6 - 16 mmol/L Total Calcium, Plasma 8.6 (L) 8.9 - 10.2 mg/dL eGFRcr 34.0 mL/min/1.73m*2 Imaging US Guided Abdominal Paracentesis Result Date: 09/19/2025 Impression: - Technically successful US-guided paracentesis. A total of 1.8 liters of clear dark yellow fluid was removed. A sample of the fluid was sent for laboratory analysis. - Technically successful ultrasound guided thoracentesis. A total of 1.4 liters of clear dark yellow fluid was removed. A sample of the fluid was sent for laboratory analysis. - Administered Albumin 37.5 g IV once post procedure. CRITICAL RESULT: No. COMMUNICATION: Per this written report. Preliminary report signed by Maria Dolores Ontiveros APRN on 09/19/2025 11:28 AM By electronically signing this report, I, the attending physician, attest that I was not present for the procedure(s) but agree with the final edited report. Drafted by Maria Dolores Ontiveros APRN on 09/19/2025 11:22 AM Final report signed by Ck Palacios MD on 09/19/2025 4:33 PM US Guided Thoracentesis Result Date: 09/19/2025 Impression: - Technically successful US-guided paracentesis. A total of 1.8 liters of clear dark yellow fluid was removed. A sample of the fluid was sent for laboratory analysis. - Technically successful ultrasound guided thoracentesis. A total of 1.4 liters of clear dark yellow fluid was removed. A sample of the fluid was sent for laboratory analysis. - Administered Albumin 37.5 g IV once post procedure. CRITICAL RESULT: No. COMMUNICATION: Per this written report. Preliminary report signed by Maria Dolores Ontiveros APRN on 09/19/2025 11:28 AM By electronically signing this report, I, the attending physician, attest that I was not present for the procedure(s) but agree with the final edited report. Drafted by Maria Dolores Ontiveros APRN on 09/19/2025 11:22 AM Final report signed by Ck Palacios MD on 09/19/2025 4:33 PM XR Chest 1 View Result Date: 09/19/2025 Impression: Left basal atelectasis. No pleural effusion. No pneumothorax. CRITICAL RESULT: No. COMMUNICATION: Per this written report. Drafted by Darryn Santana MD on 09/19/2025 12:41 PM Final reportsigned by Darryn Santana MD on 09/19/2025 12:45 PM Assessment/Plan Assessment & Plan Principal Problem: Acute kidney injury Monika Zimmer is a 65 y.o. female with PMH as per above who presents with concern for CARLOTTA. This condition poses an acute threat to life/bodily function. CARLOTTA on CKD Stage 3b; stable UTI Hx of recurrent CARLOTTA w/ Cr 1.8 on arrival, from 1.3 on 09/03; admission on 08/18/25 with Cr 2.7; prior to that baseline was around ~1.5 Sent from transplant clinic as patient would prefer treatment of CARLOTTA requiring admission' Urine showing WBC 5-10, bacteria present, and >20 casts; began to have flank pain, will treat asUTI although sample looked like a non-clean catch and did not reflex to culture Plan: - encourage PO intake - therapeutic ciprofloxacin dosing for UTI as she is already taking for SBP ppx. 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 Severe, diffuse and mosaic portal hypertensive gastropathy in the cardia, fundus of the stomach, body of the stomach, incisura and antrum EGD 02/05/25 - two medium varices in lower third of esophagus with 2 bands placed; single ulcer in lower third of esophagus with clean base, sara III Not a candidate for TIPS Listed for OLT, however inactivated as of April 2025 due to concerns with Caregiver (son) no longer being able to provide care; Reassessed on 06/11/25 and 09/17 with issue not resolved and remains in nursing Facility in [place], sister and mother are unable to provide care; sister also verbalizes difficulty with getting patient to take medications and concerns with quality of life post transplant MELD 3.0: 29 and MELD-Na: 28 Plan: - Continue Rifaximin 550 mg BID, lactulose, encouraged compliance - s/p paracentesis and thora w/ IR on 09/19. Low protein on ascites fluid warrants SBP ppx. No evidence of SBP Chronic Anemia Thrombocytopenia - Hgb 10.5 and Plt 52, both appear approximately at baseline - likely due to ACD and known kidney disease Plan: - transfuse to Hgb >7 - monitor with labs Anxiety and Depression worsened by recent news of coming off liver transplant list - recent worsening depression as son has given up on helping patient Plan: - home Sertraline 25 mg - palliative following, patient not ready to pursue hospice at this time. Will likely return to SNFsubacute rehab. Family will consider switching to SNF that has palliative services Moderate protein-calorie malnutrition Counseled on the importance of increasing protein intake, advised to get 1.2-1.5 gram/kg a day. Advsied to take late night snack/shake and upon waking up and several times a day Plan: - nutrition to follow T2DM c/b Neuropathy - Home regimen: Insulin glargine 24 units daily and lispro TID with sliding scale Plan: - Glargine 24u nightly - SSI while inpatient - low carb diet COPD JONATHAN - wears BiPAP nightly Plan: - BiPAP nightly; patient may bring home machine in w/ RT to manage Osteoporosis - DEXA scan showed osteoporosis Plan: - consult PT/OT for eval and treatment of frailty Chronic Medical Conditions: GERD: home Tums 750 mg daily Allergies: Continue home zyrtec 10 mg by mouth daily Vitamin-D deficiency: Vit D lab ordered. Was reportedly getting 50,000U daily instead of weekly at nursing facility. Vit level to determine if she requires 50K units weekly or 1000U daily. CAD: Crestor being held since most recent nephrology visit. Continue to hold Constipation: Continue home senna and Miralax Care today included: HIGHRISK: High risk: Escalation of level of care: continue inpatient Ck Hicks MD PGY-2 in Internal Medicine & Pediatrics Cosigned by Latonia Dowell MD at 09/20/2025 6:51 PM EDT Associated attestation - Latonia Dowell MD - 09/20/2025 6:51 PM EDT I saw and evaluated the patient. I discussed the case with the resident/fellow and agree with the findings and plan as documented. Time Spent: I personally spent a total of 51 minutes on this encounter. This time includes face to face with patient, counseling and discussion and/or coordination of care. * Care Plan - Viola Knutson RN - 09/19/2025 9:00 PM EDT Problem: Adult Inpatient Plan of Care Goal: Plan of Care Review Outcome: Ongoing, Progressing Flowsheets (Taken 09/19/2025 2320) Progress: no change Outcome Evaluation: Continue plan of care Plan of Care Reviewed With: patient Goal: Patient-Specific Goal (Individualized) Outcome: Ongoing, Progressing Flowsheets (Taken 09/19/20251999) Patient/Family-Specific Goals (Include Timeframe): Pt will remain free from injury for remainder ofshift Individualized Care Needs: Safety Anxieties, Fears or Concerns: None stated Goal: Absence of Hospital-Acquired Illness or Injury Outcome: Ongoing, Progressing Intervention: Identify and Manage Fall Risk Flowsheets (Taken 09/19/20251999) Safety Promotion/Fall Prevention: activity supervised clutter-free environment maintained fall prevention program maintained lighting adjusted mobility aid in reach nonskid shoes/slippers when out of bed room organization consistent safety round/check completed toileting scheduled assistive device/personal items within reach Intervention: Prevent Skin Injury Flowsheets Taken 09/19/20252319 Skin Protection: incontinence pads utilized Taken 09/19/20251999 Body Position: weight shifting Intervention: Prevent and Manage VTE (Venous Thromboembolism) Risk Flowsheets (Taken 09/19/20251999) VTE Prevention/Management: medication Intervention: Prevent Infection Flowsheets (Taken 09/19/20252319) Infection Prevention: environmental surveillance performed hand hygiene promoted rest/sleep promoted Goal: Optimal Comfort and Wellbeing Outcome: Ongoing, Progressing Intervention: Monitor Pain and Promote Comfort Flowsheets (Taken 09/19/20252110) Pain Management Interventions: medication (see MAR) care clustered position adjusted pillow support provided rest relaxation techniques promoted quiet environment facilitated Intervention: Provide Person-Centered Care Flowsheets (Taken 09/19/20252319) Trust Relationship/Rapport: care explained choices provided emotional support provided empathic listening provided questions answered questions encouraged reassurance provided thoughts/feelings acknowledged Problem: Acute Kidney Injury/Impairment Goal: Fluid and Electrolyte Balance Outcome: Ongoing, Progressing Intervention: Monitor and Manage Fluid and Electrolyte Balance Flowsheets (Taken 09/19/20252319) Fluid/Electrolyte Management: fluids provided intravenous fluids adjusted Goal: Improved Oral Intake Outcome: Ongoing, Progressing Intervention: Promote and Optimize Oral Intake Flowsheets (Taken 09/19/20252319) Oral Nutrition Promotion: rest periods promoted physical activity promoted Nutrition Interventions: food preferences provided Goal: Effective Renal Function Outcome: Ongoing, Progressing Intervention: Monitor and Support Renal Function Flowsheets (Taken 09/19/20252319) Stabilization Measures: legs elevated Medication Review/Management: medications reviewed Problem: Fall Injury Risk Goal: Absence of Fall and Fall-Related Injury Outcome: Ongoing, Progressing Intervention: Identify and Manage Contributors Flowsheets (Taken 09/19/20252319) Medication Review/Management: medications reviewed Self-Care Promotion: independence encouraged BADL personal objects within reach Intervention: Promote Injury-Free Environment Flowsheets (Taken 09/19/20251999) Safety Promotion/Fall Prevention: activity supervised clutter-free environment maintained fall prevention program maintained lighting adjusted mobility aid in reach nonskid shoes/slippers when out of bed room organization consistent safety round/check completed toileting scheduled assistive device/personal items within reach Problem: Self-Care Deficit Goal: Improved Ability to Complete Activities of Daily Living Outcome: Ongoing, Progressing Intervention: Promote Activity and Functional [place] Flowsheets (Taken 09/19/2025 4380) Activity Assistance Provided: assistance, 1 person Adaptive Equipment Use: use encouraged Self-Care Promotion: independence encouraged BADL personal objects within reach * Progress Notes - Love Kemp MD - 09/19/2025 1:22 PM EDT Images from the original note were not included. [facility] Medicine Progress Note Subjective Subjective Patient seen at bedside after getting paracentesis and thoracentesis with IR today. Mother and sister are bedside. She complains of left sided back pain. Denies dysuria or urinary complaints. She feels like she has not had any energy over the last few weeks. Discussed PT recommendations for subacute rehab. Patient and family amenable to returning to snf facility at discharge. We will monitor kidney function with potential discharge in AM. Objective Objective Last Recorded Vitals Blood pressure 114/58, pulse 80, temperature 36.6 ??C (97.9 ??F), temperature source Oral, resp. rate 13, SpO2 98%, not currently . Physical Exam Constitutional: General: She is not in acute distress. Appearance: She is obese. She is ill-appearing (chronic). Eyes: General: No scleral icterus. Cardiovascular: Rate and Rhythm: Normal rate and regular rhythm. Abdominal: General: Bowel sounds are normal. There is distension. Tenderness: There is left CVA tenderness. Skin: Capillary Refill: Capillary refill takes less than 2 seconds. Coloration: Skin is not jaundiced. Neurological: Mental Status: She is alert and oriented to person, place, and time. Data Recent Results (from the past 24 hours) POCT glucose meter Collection Time: 09/18/25 5:02 PM Result Value Ref Range POCT Glucose 187 (H) 74 - 99 mg/dL Comment [employer] Conveyor Operator ID Susie Rust Device ID [id number] Specimen Type POC Capillary POCT glucose meter Collection Time: 09/18/25 8:19 PM Result Value Ref Range POCT Glucose 165 (H) 74 - 99 mg/dL Comment [employer] Con[employer]or Operator ID Shelbie Ivey Device ID [id number] Specimen Type POC Capillary POCT glucose meter Collection Time: 09/19/25 7:34 AM Result Value Ref Range POCT Glucose 126 (H) 74 - 99 mg/dL Comment [employer] Conveyor Operator ID Kacie Carver Device ID [id number] Specimen Type POC Capillary Body Fluid Culture and Gram Stain Collection Time: 09/19/25 9:18 AM Specimen: Peritoneal/Abdominal/Ascites Fluid; Peritoneal Fluid Result Value Ref Range Gram Stain Result Rare Polymorphonuclear leukocytes Gram Stain Result No organisms seen Imaging XR Chest 1 View Result Date: 09/19/2025 Impression: Left basal atelectasis. No pleural effusion. No pneumothorax. CRITICAL RESULT: No. COMMUNICATION: Per this written report. Drafted by Darryn Santana MD on 09/19/2025 12:41 PM Final reportsigned by Darryn Santana MD on 09/19/2025 12:45 PM US Guided Abdominal Paracentesis Result Date: 09/19/2025 Impression: - Technically successful US-guided paracentesis. A total of 1.8 liters of clear dark yellow fluid was removed. A sample of the fluid was sent for laboratory analysis. - Technically successful ultrasound guided thoracentesis. A total of 1.4 liters of clear dark yellow fluid was removed. A sample of the fluid was sent for laboratory analysis. - Administered Albumin 37.5 g IV once post procedure. CRITICAL RESULT: No. COMMUNICATION: Per this written report. Preliminary report signed by Maria Dolores Ontiveros APRN on 09/19/2025 11:28 AM US Guided Thoracentesis Result Date: 09/19/2025 Impression: - Technically successful US-guided paracentesis. A total of 1.8 liters of clear dark yellow fluid was removed. A sample of the fluid was sent for laboratory analysis. - Technically successful ultrasound guided thoracentesis. A total of 1.4 liters of clear dark yellow fluid was removed. A sample of the fluid was sent for laboratory analysis. - Administered Albumin 37.5 g IV once post procedure. CRITICAL RESULT: No. COMMUNICATION: Per this written report. Preliminary report signed by Maria Dolores Ontiveros APRN on 09/19/2025 11:28 AM Assessment/Plan Assessment & Plan Principal Problem: Acute kidney injury Monika Zimmer is a 65 y.o. female with PMH as per above who presents with concern for CARLOTTA. This condition poses an acute threat to life/bodily function. CARLOTTA on CKD Stage 3b; stable UTI Hx of recurrent CARLOTTA w/ Cr 1.8 on arrival, from 1.3 on 09/03; admission on 08/18/25 with Cr 2.7; prior to that baseline was around ~1.5 Sent from transplant clinic as patient would prefer treatment of CARLOTTA requiring admission' Urine showing WBC 5-10, bacteria present, and >20 casts; began to have flank pain, will treat asUTI although sample looked like a non-clean catch and did not reflex to culture Plan: - encourage PO intake - start Ceftriaxone daily, will plan to switch to therapeutic ciprofloxacin for UTI at discharge asshe is already taking for SBP ppx. 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 Severe, diffuse and mosaic portal hypertensive gastropathy in the cardia, fundus of the stomach, body of the stomach, incisura and antrum EGD 02/05/25 - two medium varices in lower third of esophagus with 2 bands placed; single ulcer in lower third of esophagus with clean base, sara III Not a candidate for TIPS Listed for OLT, however inactivated as of April 2025 due to concerns with Caregiver (son) no longer being able to provide care; Reassessed on 06/11/25 and 09/17 with issue not resolved and remains in nursing Facility in [place], sister and mother are unable to provide care; sister also verbalizes difficulty with getting patient to take medications and concerns with quality of life post transplant MELD 3.0: 29 and MELD-Na: 28 Plan: - Continue Rifaximin 550 mg BID, lactulose, encouraged compliance - hold cipro for SBP prophy. May switch to UTI treatment dosing at discharge - s/p paracentesis and thora w/ IR on 09/19. Low protein on ascites fluid warrants SBP ppx. No evidence of SBP Chronic Anemia Thrombocytopenia - Hgb 10.5 and Plt 52, both appear approximately at baseline - likely due to ACD and known kidney disease Plan: - transfuse to Hgb >7 - monitor with labs Anxiety and Depression worsened by recent news of coming off liver transplant list - recent worsening depression as son has given up on helping patient Plan: - home Sertraline 25 mg - palliative following, patient not ready to pursue hospice at this time. Will likely return to SNFsubacute rehab. Family will consider switching to SNF that has palliative services Moderate protein-calorie malnutrition Counseled on the importance of increasing protein intake, advised to get 1.2-1.5 gram/kg a day. Advsied to take late night snack/shake and upon waking up and several times a day Plan: - nutrition to follow T2DM c/b Neuropathy - Home regimen: Insulin glargine 24 units daily and lispro TID with sliding scale Plan: - Glargine 24u nightly - SSI while inpatient - low carb diet COPD JONATHAN - wears BiPAP nightly Plan: - BiPAP nightly; patient may bring home machine in w/ RT to manage Osteoporosis - DEXA scan showed osteoporosis Plan: - consult PT/OT for eval and treatment of frailty Chronic Medical Conditions: GERD: home Tums 750 mg daily Allergies: Continue home zyrtec 10 mg by mouth daily Vitamin-D deficiency: Vit D lab ordered. Was reportedly getting 50,000U daily instead of weekly at nursing facility. Vit level to determine if she requires 50K units weekly or 1000U daily. CAD: Crestor being held since most recent nephrology visit. Continue to hold Constipation: Continue home senna and Miralax Care today included: HIGHRISK: High risk: Escalation of level of care: continue inpatient Love Kemp MD Internal Medicine PGY-2 Cosigned by Latonia Dowell MD at 09/19/2025 9:25 PM EDT Associated attestation - Latonia Dowell MD - 09/19/2025 9:25 PM EDT I saw and evaluated the patient. I discussed the case with the resident/fellow and agree with the findings and plan as documented. * Care Plan - Mendy Anderson RN - 09/19/2025 1:02 PM EDT Problem: Adult Inpatient Plan of Care Goal: Plan of Care Review Outcome: Ongoing, Progressing Flowsheets (Taken 09/19/2025 1259) Progress: no change Outcome Evaluation: continue POC Plan of Care Reviewed With: patient Goal: Patient-Specific Goal (Individualized) Outcome: Ongoing, Progressing Flowsheets (Taken 09/19/2025 1258) Patient/Family-Specific Goals (Include Timeframe): pt will remain free from harm or injury during the shift Individualized Care Needs: safety Anxieties, Fears or Concerns: none stated Goal: Absence of Hospital-Acquired Illness or Injury Outcome: Ongoing, Progressing Intervention: Identify and Manage Fall Risk Flowsheets (Taken 09/19/2025 1259) Safety Promotion/Fall Prevention: activity supervised Intervention: Prevent Skin Injury Flowsheets (Taken 09/19/2025 1259) Body Position: weight shifting Skin Protection: incontinence pads utilized Intervention: Prevent and Manage VTE (Venous Thromboembolism) Risk Flowsheets (Taken 09/19/2025 1259) VTE Prevention/Management: medication Intervention: Prevent Infection Flowsheets (Taken 09/19/2025 1259) Infection Prevention: environmental surveillance performed Goal: Optimal Comfort and Wellbeing Outcome: Ongoing, Progressing Problem: Acute Kidney Injury/Impairment Goal: Fluid and Electrolyte Balance Outcome: Ongoing, Progressing Intervention: Monitor and Manage Fluid and Electrolyte Balance Flowsheets (Taken 09/19/2025 1259) Fluid/Electrolyte Management: fluids provided Goal: Improved Oral Intake Outcome: Ongoing, Progressing Intervention: Promote and Optimize Oral Intake Flowsheets (Taken 09/19/2025 1259) Oral Nutrition Promotion: physical activity promoted Nutrition Interventions: supplemental drinks provided Goal: Effective Renal Function Outcome: Ongoing, Progressing Intervention: Monitor and Support Renal Function Flowsheets (Taken 09/19/2025 1259) Medication Review/Management: medications reviewed Problem: Fall Injury Risk Goal: Absence of Fall and Fall-Related Injury Outcome: Ongoing, Progressing Intervention: Identify and Manage Contributors Flowsheets (Taken 09/19/2025 1259) Medication Review/Management: medications reviewed Self-Care Promotion: independence encouraged Intervention: Promote Injury-Free Environment Flowsheets (Taken 09/19/2025 1259) Safety Promotion/Fall Prevention: activity supervised Problem: Self-Care Deficit Goal: Improved Ability to Complete Activities of Daily Living Outcome: Ongoing, Progressing Intervention: Promote Activity and Functional [place] Flowsheets (Taken 09/19/2025 1259) Activity Assistance Provided: assistance, 1 person Self-Care Promotion: independence encouraged * Clinician Note - Joanna Holguin APRN, DNP - 09/19/2025 12:51 PM EDT Briefly visited with Ms. Zimmer shortly after she returned from her IR procedure. She voiced that shehad no follow up questions from our conversation yesterday but had not yet decided what route she wanted to proceed with in the future regarding her medical care. Palliative will continue to follow peripherally - please reach out if the patient and/or family have additional questions or concerns. Joanna Holguin APRN Palliative and Supportive Care [phone] or Secure Chat * Post-Procedure Note - Maria Dolores Ontiveros APRN, DNP - 09/19/2025 11:23 AM EDT Vascular and Interventional Radiology Brief Postprocedure Note Provider: Maria Dolores Ontiveros APRN Pre-operative Diagnosis: Ascites Right hepatic hydrothorax Post-operative Diagnosis: Same Type [...] is in stable condition. * Consults - Maria Dolores Ontiveros, ADRI, ANGELLA - 09/19/2025 7:29 AM EDTAssociated Order(s): IP CONSULT TO INTERVENTIONAL RADIOLOGY 09/19/25 Patient: Monika Zimmer Date of : 1960/65 y.o. Requesting Service: Latonia Dowell MD Chief Complaint: Admitted for abnormal labs Reason for Consult: Ascites and hepatic hydrothorax, consulted for paracentesis and thoracentesis History of Present Illness: Monika Zimmer is a 65 y.o. 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 She was admitted from clinic due to CARLOTTA. She was previously scheduled as an outpatient for paracentesis and right thoracentesis today. VIR was consulted to perform both paracentesis and right thoracentesis. History and admission [...] otherwise noted. VITALS: Temp: [36.5 ??C (97.7 ??F)-36.9 ??C (98.4 ??F)] 36.7 ??C (98.1 ??F) Heart Rate: [52-79] 79 Resp: [16-18] 18 BP: (105-131)/(65-74) 131/74 FiO2 (%): [30 %] 30 % There is no height or weight on file to calculate BMI. I & O SUMMARY I/O last 3 completed shifts: In: - Out: 400 [Urine:400] No intake/output data recorded. MEDICATIONS: Current Medications[5] [...] 08/17/25 === CT NEURO OUTSIDE IMAGES === 09/10/25 === XR CHEST 1 VIEW - Narrative - CLINICAL INDICATION: s/p thora TECHNIQUE: XR CHEST 1 VIEW COMPARISON: September 05, 2025 FINDINGS: Stable cardiac silhouette. Improved right infrahilar opacities. No new acute focal airspace disease. No pleural effusions or pneumothorax. No acute osseous findings. - Impression - No pneumothorax. No acute airspace disease. CRITICAL RESULT: No. COMMUNICATION: Per this written report. Drafted by Areli Verduzco MD on 09/10/2025 9:56 AM Final report signed by Areli Verduzco MD on 09/10/2025 9:58 AM Echo, Adult Transthoracic Complete Result Date: [...] is no recent study available for direct [id number]-[id number] comparison. Assessment & Plan: NAIDU cirrhosis decompensated Ascites Hepatic hydrothorax Hepatic encephalopathy Esophageal varices - MELD 3.0: 29 at 09/18/2025 7:49 AM MELD-Na: 27 at 09/18/2025 7:49 AM Calculated from: Serum Creatinine: 1.82 mg/dL at 09/18/2025 7:49 AM Serum Sodium: 137 mmol/L at 09/18/2025 7:49 AM Total Bilirubin: 5 mg/dL at 09/17/2025 9:44 AM Serum Albumin: 3.5 g/dL at 09/17/2025 9:44 AM INR(ratio): 2.3 at 09/17/2025 9:44 AM Age at listin years Sex: Female at 09/18/2025 7:49 AM - Undergoes routine paracentesis and right thoracentesis with VIR - Personally reviewed paracentesis and thoracentesis from 09/05/2025 with moderate ascites and large right pleural effusion - INR ??, Plt ?? - VSS, Afebrile PLAN: - Will perform US guided paracentesis and right thoracentesis today - Primary team to place specimen orders - Will consent prior to procedure - Hold anticoagulation at MN evening prior to procedure Thank you for allowing us to participate in the care of this patient. Maria Dolores Ontiveros, REVIEW RN, DNP Interventional Radiology [phone] [1] Past Medical History: Diagnosis Date ADHD (attention deficit hyperactivity disorder) Allergic Anxiety disorder, unspecified Anxiety Bleeding gums Blood in urine Cataract Chronic kidney disease Cirrhosis (CMS/HCC) Colon cancer screening 09/20/2019 Added automatically from request for surgery [id number] Coronary artery disease Depression 1996 Diabetes mellitus type 2 in obese 04/22/2015 Diabetic nephropathy Dry mouth Epigastric pain 08/02/2019 ETD (eustachian [...] 1979 BLADDER SURGERY N/A Bladder surgery from [facility] BREAST BIOPSY 2011 BREAST SURGERY 2010 BUNIONECTOMY Right CATARACT EXTRACTION Bilateral 2016 CHOLECYSTECTOMY 1979 ESOPHAGOGASTRODUODENOSCOPY HYSTERECTOMY N/A Hysterectomy from [facility] KNEE SURGERY Bilateral ORAL SURGERY N/A Oral surgery from [facility] OTHER SURGICAL HISTORY 2015 ROOT CANAL WISDOM TOOTH EXTRACTION [3] Social History Tobacco Use Smoking status: Never Passive exposure: Never Smokeless tobacco: Never Vaping Use Vaping status: Never Used Substance Use Topics Alcohol use: Not Currently Drug use: Never [4] Allergies Allergen Reactions Penicillins Other - please document in the comment field Doesn't remember [5] Current Facility-Administered Medications: acetaminophen (Tylenol) tablet 500 mg, 500 mg, Oral, q6h PRN, Ck Hicks MD, 500 mg at 09/18/252140 bumetanide (Bumex) tablet 0.5 mg, 0.5 mg, Oral, Once per day on Tuesday, Ck Hicks MD, 0.5 mg at 09/18/25 0816 calcitriol (Rocaltrol) capsule 0.25 mcg, 0.25 mcg, Oral, Daily, Ck Hicks MD, 0.25 mcg at 09/18/25 0816 calcium carbonate (Tums) chewable tablet 750 mg, 750 mg, Oral, Daily, Ck Hicks MD, 750 mgat 09/18/25 0816 carboxymethylcellulose PF (Refresh Plus) 0.5 % ophthalmic solution 1 drop, 1 drop, Both Eyes, PRN, Ck Hicks MD, 1 drop at 09/18/251 cefTRIAXone (Rocephin) 2 g in sodium chloride 0.9% 100 mL IVPB (vial adapter required), 2 g, Intravenous, q24h, Ck Hicks MD, Last Rate: 220 mL/hr at 09/18/25 1542, 2 g at 09/18/25 1542 cetirizine (ZyrTEC) tablet 10 mg, 10 mg, Oral, Daily, Ck Hicks MD, 10 mg at 09/18/25 0815 cholecalciferol (Vitamin D-3) tablet 1,000 Units, 1,000 Units, Oral, Daily, kC Hicks MD, 1,000 Units at 09/18/25 0816 glucose (Glutose) 40 % oral gel 15-30 grams of glucose, 15-30 grams of glucose, Sublingual, q15 minPRN OR dextrose 10 % (D10W) bolus 125 mL, 125 mL, Intravenous, q15 min PRN OR dextrose 10 %(D10W) bolus 250 mL, 250 mL, Intravenous, q15 min PRN OR glucagon (human recombinant) injection1 mg, 1 mg, Intramuscular, q15 min PRN, Ck Hicks MD ergocalciferol (Vitamin D-2) capsule 50,000 Units, 50,000 Units, Oral, Weekly, Ck Hicks MD, 50,000 Units at 09/18/25 0815 heparin (porcine) injection 5,000 Units, 5,000 Units, Subcutaneous, q8h, Love Kemp MD, 5,000 Units at 09/19/25 0032 insulin glargine-yfgn 100 UNIT/ML injection 12 Units, 12 Units, Subcutaneous, Nightly, Ck Hicks MD, 12 Units at 09/18/251 insulin lispro (Admelog) 100 units/mL injection - Correction - Standard Dose, 0- 5 Units, Subcutaneous, TID with meals, Ck Hicks MD, 1 Units at 09/18/25 1726 insulin lispro (Admelog) injection - Correction - Nighttime Dose, 0-3 Units, Subcutaneous, Twice atnight, Ck Hicks MD, 1 Units at 09/17/252022 lactulose (Chronulac) 10 GM/15ML solution 20 g, 20 g, Oral, TID, Ck Hicks MD, 20 g at 09/18/252140 magnesium oxide (Mag-Ox) tablet 400 mg, 400 mg, Oral, Daily, Ck Hicks MD, 400 mg at 09/18/25815 melatonin tablet 3 mg, 3 mg, Oral, Nightly PRN, Minh Horne MD, 3 mg at 09/18/252140 midodrine (Proamatine) tablet 15 mg, 15 mg, Oral, TID, Ck Hicks MD, 15 mg at 09/18/252140 rifAXIMin (Xifaxan) tablet 550 mg, 550 mg, Oral, BID, Ck Hicks MD, 550 mg at 09/18/252140 senna (Senokot) tablet 8.6 mg, 1 tablet, Oral, Nightly, Ck Hicks MD sertraline (Zoloft) tablet 25 mg, 25 mg, Oral, Daily, Ck Hicks MD, 25 mg at 09/18/25 0815 Insert peripheral IV, , , Once AND Saline lock IV, , , Once AND sodium chloride 0.9 % flush10 mL, 10 mL, Intravenous, q12h, 10 mL at 09/19/25 0551 AND sodium chloride 0.9 % flush 10 mL, 10 mL, Intravenous, PRN, Love Kemp MD * Care Plan - Brian Velazquez, RN - 09/18/2025 10:39 PM EDT Problem: Adult Inpatient Plan of Care Goal: Plan of Care Review Outcome: Ongoing, Progressing Flowsheets (Taken 09/18/20252234) Progress: no change Outcome Evaluation: Patient recieved all night time anxiety and agitation meds by 2114, as well as schduled IVABX, family wishes at bedside to promote at much rest as posssible tonight Plan of Care Reviewed With: patient Goal: Patient-Specific Goal (Individualized) Outcome: Ongoing, Progressing Flowsheets (Taken 09/18/20251999) Patient/Family-Specific Goals (Include Timeframe): pt will have a controlled pain level overnight, tolerate from home bipap, and be able to get a good nights rest tonight. Individualized Care Needs: safety Anxieties, Fears or Concerns: none Goal: Absence of Hospital-Acquired Illness or Injury Outcome: Ongoing, Progressing Intervention: Identify and Manage Fall Risk Flowsheets (Taken 09/18/20252234) Safety Promotion/Fall Prevention: activity supervised clutter-free environment maintained lighting adjusted nonskid shoes/slippers when out of bed Intervention: Prevent Skin Injury Flowsheets (Taken 09/18/20252234) Body Position: weight shifting Skin Protection: incontinence pads utilized protective footwear used Intervention: Prevent and Manage VTE (Venous Thromboembolism) Risk Flowsheets (Taken 09/18/20252234) VTE Prevention/Management: medication Intervention: Prevent Infection Flowsheets (Taken 09/18/20252234) Infection Prevention: environmental surveillance performed hand hygiene promoted rest/sleep promoted Goal: Optimal Comfort and Wellbeing Outcome: Ongoing, Progressing Intervention: Monitor Pain and Promote Comfort Flowsheets (Taken 09/18/20252234) Pain Management Interventions: rest Intervention: Provide Person-Centered Care Flowsheets (Taken 09/18/20252234) Trust Relationship/Rapport: care explained choices provided emotional support provided questions answered empathic listening provided questions encouraged reassurance provided Problem: Acute Kidney Injury/Impairment Goal: Fluid and Electrolyte Balance Outcome: Ongoing, Progressing Intervention: Monitor and Manage Fluid and Electrolyte Balance Flowsheets (Taken 09/18/20252234) Fluid/Electrolyte Management: fluids provided Goal: Improved Oral Intake Outcome: Ongoing, Progressing Intervention: Promote and Optimize Oral Intake Flowsheets (Taken 09/18/20252234) Oral Nutrition Promotion: physical activity promoted Nutrition Interventions: supplemental drinks provided Goal: Effective Renal Function Outcome: Ongoing, Progressing Intervention: Monitor and Support Renal Function Flowsheets (Taken 09/18/20252234) Medication Review/Management: medications reviewed Problem: Fall Injury Risk Goal: Absence of Fall and Fall-Related Injury Outcome: Ongoing, Progressing Intervention: Identify and Manage Contributors Flowsheets (Taken 09/18/20252234) Medication Review/Management: medications reviewed Self-Care Promotion: independence encouraged Intervention: Promote Injury-Free Environment Flowsheets (Taken 09/18/20252234) Safety Promotion/Fall Prevention: activity supervised clutter-free environment maintained lighting adjusted nonskid shoes/slippers when out of bed Problem: Self-Care Deficit Goal: Improved Ability to Complete Activities of Daily Living Outcome: Ongoing, Progressing Intervention: Promote Activity and Functional [place] Flowsheets (Taken 09/18/20252234) Activity Assistance Provided: assistance, 1 person Adaptive Equipment Use: dressing stick Self-Care Promotion: independence encouraged * Assessment & Plan Note - Joanna Holguin, REVIEW RN, DNP - 09/18/2025 4:37 PM EDTAssociated Problem(s): Acute kidney injury (Resolved 10/23/2025) Monika Zimmer is a 65 y.o. female [facility] of [facility] cirrhosis decompensated by ascites, HE, esophageal varices and portal hypertension, T2DM c/b neuropathy, ADHD, anxiety, depression, COPD, CKDIIIB,CAD, JONATHAN (on nightly bipap), SLE, HLD, mixed IBS who presents directly from transplant clinic due to c/f CARLOTTA. She is not a candidate for transplant due to lack of primary caregiver. Transplant team discussed palliative and hospice care and thus palliative care consulted to continue discussions. I previously met with Monika and her family in June and completed MOST form (see ACP note 07/08/25). I met with Monika, her mother Karime, and sister Lj. Monika asks about palliative care. I explained her options including going back to the nursing facility in [facility] where outpatient palliative care is not available, seek placement in [facility] where outpatient palliative is available, or return back to her nursing facility with hospice care. Outpatient palliativecare entails visits every 4-6 weeks to manage symptoms. She would continue to need frequent hospitalizations to manage complications of her liver disease. I shared my worry that the burden of going to a facility away from her family may outweigh the benefit of outpatient palliative care. I discussed hospice extensively and she shared that she is scared of . I inquired further and she reportsshe is worried about the casket closing. I validated her feelings and shared that it is normal to be fearful of but it is unfortunately something we will all experience. I recommended consideration of hospice so that she has extra support to process these feelings and ensure that she has a peaceful, dignified, and comfortable when the time comes. Monika reports that she would like to think about the options. 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 female history of [facility] cirrhosis decompensated by ascites, HE, esophageal varices and portal hypertension, T2DM c/b neuropathy, ADHD, anxiety, depression, COPD, CKDIIIB,CAD, JONATHAN (on nightly bipap), SLE, HLD, mixed IBS who presents directly from transplant clinic due to c/f CARLOTTA. She is not a candidate for transplant due to lack of primary caregiver. Transplant team discussed palliative and hospice care and thus palliative care consulted to continue discussions. Medical/Surgical/Social/Family History I have reviewed and updated the patient history. Code Status at Initial Consult DNR - Ok to intubate Review of Systems: Review of Systems Constitutional: Positive for activity change and fatigue. Gastrointestinal: Positive for abdominal distention. Skin: Positive for color change. Psychiatric/Behavioral: The patient is nervous/anxious. Unless otherwise listed all systems negative except as per HPI or Assessment and Plan. Physical Exam Physical Exam Constitutional: Appearance: She is ill-appearing. HENT: Head: Normocephalic. Right Ear: External ear normal. Left Ear: External ear normal. Nose: Nose normal. Mouth/Throat: Mouth: Mucous membranes are moist. Pharynx: Oropharynx is clear. Eyes: Pupils: Pupils are equal, round, and reactive to light. Cardiovascular: Rate and Rhythm: Normal rate. Pulmonary: Effort: Pulmonary effort is normal. Abdominal: General: There is distension. Skin: General: Skin is warm and dry. Neurological: General: No focal deficit present. Mental Status: She is alert and oriented to person, place, and time. Psychiatric: Mood and Affect: Mood is anxious. Vitals Blood pressure 115/65, pulse 69, temperature 36.9 ??C (98.4 ??F), resp. rate 18, SpO2 97%, not currently . Results Review I have reviewed the latest lab and imaging results. Medications Current Scheduled Medications[1] Current PRN Medications[2] Palliative Care Actions Goals of care meeting Assessment & Plan Acute kidney injury Monika Zimmer is a 65 y.o. female history of [facility] cirrhosis decompensated by ascites, HE, esophageal varices and portal hypertension, T2DM c/b neuropathy, ADHD, anxiety, depression, COPD, CKDIIIB,CAD, JONATHAN (on nightly bipap), SLE, HLD, mixed IBS who presents directly from transplant clinic due to c/f CARLOTTA. She is not a candidate for transplant due to lack of primary caregiver. Transplant team discussed palliative and hospice care and thus palliative care consulted to continue discussions. I previously met with Monika and her family in June and completed MOST form (see ACP note 07/08/25). I met with [place], her mother Karime, and sister Lj. Monika asks about palliative care. I explained her options including going back to the nursing facility in [facility] where outpatient palliative care is not available, seek placement in [facility] where outpatient palliative is available, or return back to her nursing facility with hospice care. Outpatient palliativecare entails visits every 4-6 weeks to manage symptoms. She would continue to need frequent hospitalizations to manage complications of her liver disease. I shared my worry that the burden of going to a facility away from her family may outweigh the benefit of outpatient palliative care. I discussed hospice extensively and she shared that she is scared of . I inquired further and she reportsshe is worried about the casket closing. I validated her feelings and shared that it is normal to be fearful of but it is unfortunately something we will all experience. I recommended consideration of hospice so that she has extra support to process these feelings and ensure that she has a peaceful, dignified, and comfortable when the time comes. Monika reports that she would like to think about the options. Plan, Recommendations: Palliative care encounter -Code status not discussed: noted as DNR ok to intubate which aligns with previous conversations -Palliative previously saw Ms. Zimmer and completed a MOST form (see ACP note 07/08/25). Discussed returning to nursing facility with previously set guardrails from MOST form and no outpatient palliative care, transferring to a nursing facility with outpatient palliative care, or transferring to nursing facility with hospice care. Monika requests time to think about these options but is agreeable for palliative to return tomorrow. Thank you for the opportunity to participate in the care of Ms. Zimmer. I have discussed plan with primary team and bedside RN in coordination of care. Joanna Holguin, REVIEW RN Palliative and Supportive Care [phone] or Secure Chat [1] bumetanide, 0.5 mg, Oral, Once per day on Tuesday calcitriol, 0.25 mcg, Oral, Daily calcium carbonate, 750 mg, Oral, Daily cefTRIAXone, 2 g, Intravenous, q24h cetirizine, 10 mg, Oral, Daily cholecalciferol, 1,000 Units, Oral, Daily ergocalciferol, 50,000 Units, Oral, Weekly heparin (porcine), 5,000 Units, Subcutaneous, q8h insulin glargine-yfgn, 12 Units, Subcutaneous, Nightly insulin lispro, 0-5 Units, Subcutaneous, TID with meals insulin lispro, 0-3 Units, Subcutaneous, Twice at night lactulose, 20 g, Oral, TID magnesium oxide, 400 mg, Oral, Daily midodrine, 15 mg, Oral, TID rifAXIMin, 550 mg, Oral, BID senna, 1 tablet, Oral, Nightly sertraline, 25 mg, Oral, Daily Insert peripheral IV, , , Once AND Saline lock IV, , , Once AND sodium chloride, 10 mL, Intravenous, q12h AND sodium chloride, 10 mL, Intravenous, PRN [2] acetaminophen, 500 mg, Oral, q6h PRN carboxymethylcellulose PF, 1 drop, Both Eyes, PRN glucose, 15-30 grams of glucose, Sublingual, [...] mL, Intravenous, PRN * Progress Notes - Tiny Wilkins - 09/18/2025 1:31 PM EDT Case Management Adult Initial Progress Note Monika Zimmer 65 y.o. female CSN: [id number] Admission: 09/17/2025 3:35 PM Primary Problem: Acute kidney injury Manager Port reviewed chart and spoke with patient to complete this Initial Case Management Assessment. PCP: Lillie Pritchard MD Emergency Contact: Extended Emergency Contact Information Primary Emergency Contact: Lj Bernal Mobile Relation: Sister Secondary Emergency Contact: Irvin Zimmer Mobile Relation: Son Preferred language: Sami Automatic Glove Turner And Former needed? No Mother: Karime Singletary Mobile Insurance: Primary Visit Coverage Payer Plan Sponsor Code Group Number Group Name HUMANA MEDICARE HUMANA MEDICARE [id number] Primary Visit Coverage Subscriber Subscriber ID Subscriber Name Subscriber [facility] Subscriber Address [id number] Monika Zimmer [id number] [place] [id number] Secondary Visit Coverage Payer Plan Sponsor Code Group Number Group Name MEDICAID-[facility] MEDICAID TRADITIONAL Secondary Visit Coverage Subscriber Subscriber ID Subscriber Name Subscriber [facility] Subscriber Address [id number] MONIKA ZIMMER [id number] [address] [place] [address] Patient information: Primary Caregiver: Other (Comment) ([employer]) Support System: Immediate family Daily Living Activities: Functional Status: Maximum assistance Living Arrangements: Alf Type of Residence: detention facility [address] [place] [address] Current DME: Equipment Currently Used at Home: walker, rollator, oxygen, Bipap Income Information: Income Source: Disabled Income/Expense Information: Income meets expenses Current Resources Utilized: Food [place] Housing Circumstances-Z Codes: Housing Circumstances (select all that apply): Low Income (101-300% Federal Poverty Guidlines) - Z596 Patient Referred to: [facility] Anticipated Discharge Date: TBD Patient's Discharge Goal: facility Assistance Available at Discharge: 13/06 Discharge Transport: ambulance Follow Up Transport: ambulance Home Health / Home Infusion / Outpatient Dialysis Services: none Living Will/Advance Directive/Power of Crayon Sorting Machine Feeder /Guardian: Advance Directive: Patient would not like information Information Provided on Healthcare Directives: Yes Pre-existing DNR/DNI Order: No Patient Requests Assistance: No Additional Comments: Plan of care and discharge plan reviewed. Plan for management of end stage liver disease, PT/OT interventions, BiPAP at HS, oxygen as needed, and medical management of chronic conditions. Met with [facility] for initial assessment. Verified demographic information as correct. Ms Zimmer reports she was living at home when admitted in June and discharged to [facility] ([phone]). Verified with facility she was admitted 07/08/25 and is able to return when medically appropriate. Referral sent via [facility]. Ms Zimmer is not current with or history of HHC, HD, HI, DME, LW/AD or MPOA. Plan to return to facility at discharge. Anticipate need for ambulance transport. Tiny Wilkins RN, BSN Case Management * Progress Notes - Ck Hicks MD - 09/18/2025 10:21 AM EDT Images from the original note were not included. Hospital Medicine Progress Note Subjective Subjective Reports doing well, but still sad at overall situation. Reports L lower back pain and slight dysuria. Concerned she has a UTI as this is similar to her previous symptoms when treated for UTI. Not eating as much as normal but still having PO intake. Objective Objective Last Recorded Vitals Blood pressure 105/67, pulse 76, temperature 36.6 ??C (97.8 ??F), temperature source Axillary, resp. rate 16, SpO2 97%, not currently . Physical Exam Constitutional: General: She is not in acute distress. Appearance: She is obese. She is ill-appearing (chronic). Eyes: General: No scleral icterus. Cardiovascular: Rate and Rhythm: Normal rate and regular rhythm. Abdominal: General: Bowel sounds are normal. There is distension. Palpations: There is fluid wave. Tenderness: There is left CVA tenderness. Skin: Capillary Refill: Capillary refill takes less than 2 seconds. Coloration: Skin is not jaundiced. Neurological: Mental Status: She is alert and oriented to person, place, and time. Data Recent Results (from the past 24 hours) POCT glucose meter Collection Time: 09/17/25 5:34 PM Result Value Ref Range POCT Glucose 137 (H) 74 - 99 mg/dL Comment Ash Conveyor Operator ID Aneta Misierra [place] Device ID [id number] Specimen Type POC Capillary Basic metabolic panel Collection Time: 09/17/25 6:13 PM Result Value Ref Range Glucose, Plasma 142 (H) 74 - 99 mg/dL BUN, Plasma 41 (H) 8 - 23 mg/dL Creatinine, Plasma 1.77 (H) 0.60 - 1.10 mg/dL BUN/Creatinine Ratio 23 Sodium, Plasma 136 136 - 145 mmol/L Potassium, Plasma 3.1 (L) 3.6 - 4.9 mmol/L Chloride, Plasma 100 97 - 107 mmol/L CO2, Plasma 25 22 - 29 mmol/L Anion Gap 11 6 - 16 mmol/L Total Calcium, Plasma 8.9 8.9 - 10.2 mg/dL eGFRcr 32.0 mL/min/1.73m*2 Lavender Top Collection Time: 09/17/25 6:36 PM Result Value Ref Range Extra Hold for add-ons POCT glucose meter Collection Time: 09/17/25 8:11 PM Result Value Ref Range POCT Glucose 179 (H) 74 - 99 mg/dL Comment Ash Conveyor Operator ID Zabrina John Device ID [id number] Specimen Type POC Capillary Urinalysis with reflex microscopic (Culture NOT Included) Collection Time: 09/17/25 10:22 PM Result Value Ref Range Color, Urine Yellow Clarity, Urine Clear Spec Angie, Urine 1.020 1.005 - 1.030 pH, Urine 6.0 5.0 - 8.0 Protein, Urine Negative Negative mg/dL Glucose, Urine Negative Negative mg/dL Ketones, Urine Trace (A) Negative mg/dL Blood, Urine Negative Negative Bilirubin, Urine Negative Negative Urobilinogen, Urine 0.2 0.2 to 1.0 mg/dL Leukocytes, Urine Trace (A) Negative Nitrite, Urine Negative Negative RBC, Urine 3 0 to 3 /HPF WBC, Urine 6 - 10 (A) 0 to 5 /HPF Squamous Epithelial Cells 6 - 10 (A) 0 to 5 /HPF Hyaline Casts >20 (A) 0 to 5 /LPF Bacteria, Urine Present Negative Renal Tubular Cells Present Absent Transitional Epithelial Cells Present Absent Urine Subramanian Panel Collection Time: 09/17/25 10:22 PM Result Value Ref Range Extra Reflex urine culture not indicated POCT glucose meter Collection Time: 09/18/25 7:46 AM Result Value Ref Range POCT Glucose 85 74 - 99 mg/dL Comment Ash Conveyor Operator ID Jadiel Orourke Device ID [id number] Specimen Type POC Capillary Basic metabolic panel Collection Time: 09/18/25 7:49 AM Result Value Ref Range Glucose, Plasma 85 74 - 99 mg/dL BUN, Plasma 42 (H) 8 - 23 mg/dL Creatinine, Plasma 1.82 (H) 0.60 - 1.10 mg/dL BUN/Creatinine Ratio 23 Sodium, Plasma 137 136 - 145 mmol/L Potassium, Plasma 4.0 3.6 - 4.9 mmol/L Chloride, Plasma 104 97 - 107 mmol/L CO2, Plasma 25 22 - 29 mmol/L Anion Gap 8 6 - 16 mmol/L Total Calcium, Plasma 8.6 (L) 8.9 - 10.2 mg/dL eGFRcr 30.9 mL/min/1.73m*2 POCT glucose meter Collection Time: 09/18/25 8:23 AM Result Value Ref Range POCT Glucose 128 (H) 74 - 99 mg/dL Comment Ash Conveyor Operator ID Jessica Haynes Device ID [id number] Specimen Type POC Capillary POCT glucose meter Collection Time: 09/18/25 11:23 AM Result Value Ref Range POCT Glucose 228 (H) 74 - 99 mg/dL Comment Ash Conveyor Operator ID Jadiel Orourke Device ID [id number] Specimen Type POC Capillary Imaging Assessment/Plan Assessment & Plan Principal Problem: Acute kidney injury Monika Zimmer is a 65 y.o. female with PMH as per above who presents with concern for CARLOTTA. This condition poses an acute threat to life/bodily function. CARLOTTA on CKD Stage 3b; stable UTI Hx of recurrent CARLOTTA w/ Cr 1.9 today, from 1.3 on 09/03; admission on 08/18/25 with Cr 2.7; prior to that baseline was around ~1.5 Sent from transplant clinic as patient would prefer treatment of CARLOTTA requiring admission' Urine showing WBC 5-10, bacteria present, and >20 casts; began to have flank pain, will treat asUTI although sample looked like a non-clean catch Plan: - encourage PO intake - start Ceftriaxone daily and switch to PO when ready for discharge Decompensated MASH cirrhosis c/b h/o Hepatic Encephalopathy, hepatic hydrothorax, Ascites c/b SBP, and Esophageal varices s/p banding Pt evaled for OLT, possible SLK; denied further evaluation On Lactulose and Xifaxan, has had multiple admissions, will decline lactulose in her correction ttime Now needing frequent thoracentesis and para weekly; recent SBP on last admission EGD 01/09/25 - Multiple small, medium and tortuous varices in the lower third of the esophagus s/p 1band. Severe, diffuse and mosaic portal hypertensive gastropathy in the cardia, fundus of the stomach, body of the stomach, incisura and antrum EGD 02/05/25 - two medium varices in lower third of esophagus with 2 bands placed; single ulcer in lower third of esophagus with clean base, sara III Not a candidate for TIPS Listed for OLT, however inactivated as of April 2025 due to concerns with Caregiver (son) no longer being able to provide care; Reassessed on 06/11/25 and 09/17 with issue not resolved and remains in nursing Facility in [place], sister and mother are unable to provide care; sister also verbalizes difficulty with getting patient to take medications and concerns with quality of life post transplant MELD 3.0: 29 and MELD-Na: 28 Plan: - Continue Rifaximin 550 mg BID, lactulose, encouraged compliance - hold cipro for SBP prophy iso UTI treatment as above - assess need for repeat thoracentesis and/or paracentesis while inpatient (scheduled for 09/19) Chronic Anemia Thrombocytopenia - Hgb 10.5 and Plt 52, both appear approximately at baseline - likely due to ACD and known kidney disease Plan: - transfuse to Hgb >7 - monitor with labs Anxiety and Depression worsened by recent news of coming off liver transplant list - recent worsening depression as son has given up on helping patient Plan: - home Sertraline 25 mg - consult palliative medicine for further goals and possible conversations on hospice care as patient is in end stage liver disease Moderate protein-calorie malnutrition Counseled on the importance of increasing protein intake, advised to get 1.2-1.5 gram/kg a day. Advsied to take late night snack/shake and upon waking up and several times a day Plan: - nutrition to follow T2DM c/b Neuropathy - Home regimen: Insulin glargine 24 units daily and lispro TID with sliding scale Plan: - Glargine 24u nightly - SSI while inpatient - low carb diet COPD JONATHAN - wears BiPAP nightly Plan: - BiPAP nightly; patient may bring home machine in w/ RT to manage Osteoporosis - DEXA scan showed osteoporosis Plan: - consult PT/OT for eval and treatment of frailty Chronic Medical Conditions: GERD: home Tums 750 mg daily Allergies: Continue home zyrtec 10 mg by mouth daily Vitamin-D deficiency: Continue home calcitriol, D2, and D3 daily (per med history may be getting too large of dose at correction) CAD: Crestor being held since most recent nephrology visit. Continue to hold Constipation: Continue home senna and Miralax Care today included: HIGHRISK: High risk: Escalation of level of care: continue inpatient Ck Hicks MD PGY-2 in Internal Medicine & Pediatrics Cosigned by Latonia Dowlel MD at 09/18/2025 5:44 PM EDT Associated attestation - Latonia Dowell MD - 09/18/2025 5:44 PM EDT I saw and evaluated the patient. I discussed the case with the resident/fellow and agree with the findings and plan as documented. * Consults - Gabriela Naqvi RD - 09/18/2025 10:15 AM EDTAssociated Order(s): IP CONSULT TO NUTRITION SERVICES Adult Nutrition Evaluation Note Monika Zimmer 65 y.o. female CSN: [id number] Room/Bed 633/633A Nutrition evaluation type: assessment Reason for evaluation: provider consult Hospital course: 65 y/o female with MASH cirrhosis admitted for CARLOTTA. Past medical/ surgical history: Past Medical History[1] Surgical History[2] Additional comments: Pt reports fair appetite at visit. RD discussed menu with patient. Pt declinedsupplements and snacks at this time. Vitals and Basic Assessment: BP: 110/71 Temp: 36.5 ??C (97.7 ??F) Oxygen Therapy: Supplemental oxygen O2 Delivery Method: Nasal cannula Shamir Coma Scale Score: 15 Edd Scale Score: 19 Most Recent BM Date: 09/17/25 GI Symptoms: Diarrhea Edema: Right lower extremity, Left lower extremity Allergies: NKFA Medications: Current Scheduled Medications[3] Labs: Results from last 7 days Lab Units 09/18/25 0749 09/17/25 1813 09/17/25 0944 SODIUM mmol/L 137 136 138 POTASSIUM mmol/L 4.0 3.1* 3.7 CHLORIDE mmol/L 104 100 97 CO2 mmol/L 25 25 24 BUN mg/dL 42* 41* 38* CREATININE mg/dL 1.82* 1.77* 1.88* EGFR mL/min/1.73m*2 30.9 32.0 29.7 GLUCOSE mg/dL 85 142* 215* CALCIUM mg/dL 8.6* 8.9 9.0 Lab Results Component Value Date HGBA1C 6.4 08/26/2025 Anthropometrics: Height: 165.1 cm Weight: 77.9 kg BMI: 28.58 Weight Evaluation: Overweight (BMI 25-29.9) [place] Body Weight (kg): 56.8 Percent [place] Body Weight: 137 Adjusted Body Weight (kg): 62.1 Estimated Needs: Kcal/ K Kcal Provided: 1862 Kcal Needs Based On: Adjusted weight Current Nutrition Intake: Diet Supplements: None Diet Order: Adult Diet Diet Texture: Regular Adult Carbohydrate Restriction: Consistent CHO 2 ([id number] Deniz, 80 g/meal) Adult Sodium Restriction: 2,000 mg Na Diet Experience and Nutrition History: Diet Education Provided: Will monitor Nutrition Focused Physical Exam: Physical exam performed on (date): 09/18/25 Temples (muscles): Mild Clavicle (muscle): None Shoulder (muscle): None Orbital (fat): None Triceps (fat): None Assessment of Malnutrition: Malnutrition Identified: No Nutrition Problem: Decreased nutrient needs Na related to cirrhosis as evidenced by need for Na restricted diet. Status of Nutrition Diagnosis: New Nutrition Interventions and Recommendations: - CC2, 2 g Na diet as tolerated. Nutrition Monitoring and Goals: - Consume >75% of meals Acuity Level: [address] [1] Past Medical History: Diagnosis Date ADHD (attention deficit hyperactivity disorder) Allergic Anxiety disorder, unspecified Anxiety Bleeding gums Blood in urine Cataract Chronic kidney disease Cirrhosis (CMS/HCC) Colon cancer screening 09/20/2019 Added automatically from request for surgery [id number] Coronary artery disease Depression 1995 Diabetes mellitus type 2 in obese 04/22/2015 Diabetic nephropathy Dry mouth Epigastric pain 08/02/2019 ETD (eustachian [...] 1979 BLADDER SURGERY N/A Bladder surgery from [facility] BREAST BIOPSY 2011 BREAST SURGERY 2010 BUNIONECTOMY Right CATARACT EXTRACTION Bilateral 2016 CHOLECYSTECTOMY 1980 ESOPHAGOGASTRODUODENOSCOPY HYSTERECTOMY N/A Hysterectomy from [facility] KNEE SURGERY Bilateral ORAL SURGERY N/A Oral surgery from [facility] OTHER SURGICAL HISTORY 2014 ROOT CANAL WISDOM TOOTH EXTRACTION [3] bumetanide, 0.5 mg, Oral, Once per day on Tuesday calcitriol, 0.25 mcg, Oral, Daily calcium carbonate, 750 mg, Oral, Daily cefTRIAXone, 2 g, Intravenous, q24h cetirizine, 10 mg, Oral, Daily cholecalciferol, 1,000 Units, Oral, Daily ergocalciferol, 50,000 Units, Oral, Weekly heparin (porcine), 5,000 Units, Subcutaneous, q8h insulin glargine-yfgn, 12 Units, Subcutaneous, Nightly insulin lispro, 0-5 Units, Subcutaneous, TID with meals insulin lispro, 0-3 Units, Subcutaneous, Twice at night lactulose, 20 g, Oral, TID magnesium oxide, 400 mg, Oral, Daily midodrine, 15 mg, Oral, TID rifAXIMin, 550 mg, Oral, BID senna, 1 tablet, Oral, Nightly sertraline, 25 mg, Oral, Daily Insert peripheral IV, , , Once AND Saline lock IV, , , Once AND sodium chloride, 10 mL, Intravenous, q12h AND sodium chloride, 10 mL, Intravenous, PRN * Care Plan - Jessica Posey RN - 09/18/2025 9:54 AM EDT Problem: Adult Inpatient Plan of Care Goal: Plan of Care Review Outcome: Ongoing, Progressing Flowsheets Taken 09/18/2025 0953 by Jessica Posey, RN Outcome Evaluation: Pt worke with PT walked on the hallway. Sitting in the chair right now. Taken 09/17/2025 2354 by Brian Velazquez RN Progress: improving Plan of Care Reviewed With: patient Goal: Patient-Specific Goal (Individualized) Outcome: Ongoing, Progressing Flowsheets (Taken 09/18/2025 0800) Patient/Family-Specific Goals (Include Timeframe): Pt will remain free of injuries during this shift Individualized Care Needs: safety Anxieties, Fears or Concerns: none Goal: Absence of Hospital-Acquired Illness or Injury Outcome: Ongoing, Progressing Goal: Optimal Comfort and Wellbeing Outcome: Ongoing, Progressing Problem: Acute Kidney Injury/Impairment Goal: Fluid and Electrolyte Balance Outcome: Ongoing, Progressing Goal: Improved Oral Intake Outcome: Ongoing, Progressing Goal: Effective Renal Function Outcome: Ongoing, Progressing Problem: Fall Injury Risk Goal: Absence of Fall and Fall-Related Injury Outcome: Ongoing, Progressing * Progress Notes - Allen Dela Cruz - 09/18/2025 9:24 AM EDT Physical Therapy Evaluation Patient Name: Monika Zimmer Today's Date: 09/18/2025 PT Discharge Recommendations: Subacute rehab Equipment Recommended: Defer to facility History Monika Zimmer is 65 y.o. female admitted 09/17/2025 for work-up of Acute kidney injury. Problem List Active Hospital Problems Diagnosis Date Noted Acute kidney injury 09/17/2025 Procedures Past Medical History Patient has a past medical history of ADHD (attention deficit hyperactivity disorder), Allergic, Anxiety disorder, unspecified, Bleeding gums, Blood in urine, Cataract, Chronic kidney disease, Cirrhosis (CMS/HCC), Colon cancer screening (09/20/2019), Coronary artery disease, Depression (1995), Diabetes mellitus type 2 in obese (04/22/2015), Diabetic nephropathy, Dry mouth, Epigastric pain (08/02/2019), ETD (eustachian tube dysfunction) (07/13/2018), GERD (gastroesophageal reflux disease), Headache, Heart murmur, Hepatic encephalopathy (CMS/HCC) (10/14/2024), HL (hearing loss), Hypoparathyroidism, Inflammatory bowel disease, Irritable bowel syndrome, Jaw pain, Obesity, Osteoporosis, Other ascites (01/22/2025), Peptic ulceration, Personal history of other diseases of the digestive system, Personal history of other diseases of the digestive system, Personal history of other diseases of thenervous system and sense organs, Personal history of other endocrine, nutritional and metabolic disease, Personal history of other mental and behavioral disorders, Personal history of urinary (tract)infections, Pre-liver transplant, listed, Pure hypercholesterolemia, unspecified, Sleep apnea, Thyroid condition, Type 2 diabetes mellitus, Unspecified asthma, uncomplicated, and Unspecified osteoarth ritis, unspecified site. Past Surgical History Patient has a past surgical history that includes Knee surgery (Bilateral); oral surgery (N/A); Hysterectomy (N/A); Bladder surgery (N/A); Appendectomy (1979); Cholecystectomy (1979); Breast biopsy (2010); Cataract extraction (Bilateral, 2016); Bunionectomy (Right); Esophagogastroduodenoscopy; Other surgical history (2014); [place] tooth extraction; Breast surgery (2009); and Root canal. Precautions Medical Precautions: Fall precautions Subjective Patient with very flat affect but motivated to get up and work with therapist. Participants in Care Family/Caregiver Present: No Automatic Glove Turner And Former: Not Applicable Presentation Oxygen Therapy: Supplemental oxygen O2 Delivery Method: Nasal cannula O2 Flow Rate (L/min): 2 L/min Lines and Tubes: Intravenous access, Telemetry Pre-Session: Supine, Head of bed elevated, Lines intact Pre-Session Comments: RN agreeable Post-Session: Sitting in chair, Lines intact, Call light in reach Post-Session Comments: Needs met. Home Living/Set-up Home Type: detention facility Home Adaptive Equipment: Rollator, Rolling walker, Wheelchair-manual Home Layout: One level Home Living Comments: Patient reports that she has been in a faclity for the past ~2 months as she has sold her house. She reports she typically walks around the facility with a rollator but has gotten weaker over the past few days. She got assistance with bathing due to fear of falling, she statedshe is typically able to get herself dressed but sometimes requests help when feeling tired. Prior Level of Function Receives Help From: Caregiver Level of Mobility: Ambulatory- household only Mobility [place]: Assistance with gait with device History of Falls: No ADL Performance: Needs assistance Bathing: Needs assist Upper Body Dressing: Needs assist Lower Body Dressing: Needs assist Grooming: Independent Toileting: Independent Eating: Independent Home Management Skills: Needs assist Patient/Family Goals Objective Pain No complaints of pain during session. Delirium Screening RASS: Alert and calm Confusion Assessment Method-ICU (CAM-ICU/PCAM-ICU) Feature 3: Altered Level of Consciousness: Negative Cognition Overall Cognitive Status: Within Functional Limits Arousal/Alertness: Appropriate responses to stimuli Mood/Behavior: Alert Orientation Level: Oriented X4 Single Step Commands: Consistently Multi-Step Commands: Consistently Method of Communication: Verbal Vision - Basic Assessment Patient Visual Report: No problem reported. Current Vision: Intact Right Upper Extremity Examination RUE Assessment: Within Functional Limits Manual Muscle Testing - RUE: Within functional limits Sensation Light Touch: Right Upper Extremity: Intact Left Upper Extremity Examination LUE ROM Assessment LUE Assessment: Within Functional Limits Manual Muscle Testing - LUE Manual Muscle Testing - LUE: Within functional limits Sensation Light Touch: Left Upper Extremity: Intact Right Lower Extremity Examination RLE ROM Assessment RLE Assessment: Within Functional Limits Manual Muscle Testing - RLE Manual Muscle Testing - RLE: Within functional limits Sensation Light Touch: Right Lower Extremity: Mild impairment Left Lower Extremity Examination LLE Assessment: Within Functional Limits Manual Muscle Testing: Within functional limits Sensation Light Touch: Left Lower Extremity: Mild impairment Bed Mobility Bed Mobility Exam: Scooting/Bridging Level of [place]: Stand-by assist Physical/Nonphysical Assist: Verbal Cues, Set-up required Assistive Device: Bed rails Bed Mobility Exam: Supine to Sit Level of [place]: Stand-by assist Physical/Nonphysical Assist: Verbal Cues, Set-up required, HOB elevated Assistive Device: Bed rails Transfers Transfer Exam: Sit to stand Level of [place]: Contact guard Physical/Nonphysical Assist: Verbal Cues, Set-up required Assistive Device: Rollator Transfer Exam: Stand to Sit Level of [place]: Contact guard Physical/Nonphysical Assist: Verbal Cues, Set-up required Assistive Device: Rollator Toilet Transfer Level of [place]: Contact guard Physical/Nonphysical Assist: Verbal Cues, Set-up required Type of Transfer: Ambulation, To toilet Assistive Device: Rollator Ambulation Device: Rollator Assistance: Contact guard assist, Minimal verbal cues, Minimal tactile cues Distance : 100'x2 with a seated rest break Ambulation Comments: Patient with significantly decreased step height/length and slow gait speed with minimal foot clearance. Therapist provided verbal cues for rollator management including posture,sequencing, and gait quality. Patient had no loss of balance but was occasionally unsteady when performing turns or navigating narrow spaces. Balance Postural Appearance Posture: Within Functional Limits Static Sitting Balance Static Sitting-Balance Support: Feet supported Static Sitting-Level of Assistance: Supervision Dynamic Sitting Balance Dynamic Sitting-Balance Support: Feet supported Level of Assistance: Standby assisst Static Standing Balance Static Standing-Balance Support: Right upper extremity support, Left upper extremity support Static Standing-Level of Assistance: Contact guard Dynamic Standing Balance Dynamic Standing-Balance Support: Left upper extremity support, Right upper extremity support Dynamic Standing Level of Assistance: Contact guard Participation in Functional Tasks: Contact guard Therapeutic Activity (10 minutes) Patient sat EOB for an extended time and performed static/dynamic sitting balance activities including ADL performance. Therapist instructed patient in safe transfers including hand/foot placement and wide base of support while pushing off of seated surface. Patient required brief breaks and increased time throughout session due to shortness of air/fatigue. Therapist provided cues for focus on pacing and energy conservation in order to improve endurance/activity tolerance this session. Patient was able to ambulate 100'x2 with a seated rest break. Therapist educated patient on rollator safety including brake management, positioning/hand placement during gait and transfers to/from the rollator seat. Standardized Assessments Standardized Assessments Standardized Assessments: [facility] 6-Clicks Mobility Assessment [facility] 6-Clicks Mobility Assessment Difficulty patient has turning over in bed (including adjusting bedclothes, sheets, and blankets)?:None Difficulty patient has sitting down on and standing up from a chair with arms (wheelchair, bedside commode, etc.)?: A little Difficulty patient has moving from lying on back to sitting on the side of the bed?: None How much help does the patient need moving to and from a bed to a chair (including a wheelchair)?: A little How much help does the patient need to walk in hospital room?: A little How much help does the patient need climbing 3-5 steps with a railing?: A lot [facility] 6-Clicks Mobility Assessment Total : 19 Standardized Assessments Standardized Assessments Standardized Assessments: [facility] 6-Clicks Mobility Assessment [facility] 6-Clicks Mobility Assessment Difficulty patient has turning over in bed (including adjusting bedclothes, sheets, and blankets)?:None Difficulty patient has sitting down on and standing up from a chair with arms (wheelchair, bedside commode, etc.)?: A little Difficulty patient has moving from lying on back to sitting on the side of the bed?: None How much help does the patient need moving to and from a bed to a chair (including a wheelchair)?: A little How much help does the patient need to walk in hospital room?: A little How much help does the patient need climbing 3-5 steps with a railing?: A lot [facility] 6-Clicks Mobility Assessment Total : 19 No data recorded Assessment Current impairments are leading to decreased activity tolerance and increased dependence on caregivers. Patient remains at increased fall risk due to rapid fatigue and weakness. Patient would benefit from continued skilled PT services to facilitate return to [facility]. Impairments: Impaired executive functioning, Impaired gait dynamics/performance, Impaired locomotion, Impaired postural/trunk control, Impaired functional mobility/transfers, Impaired balance, Decreased endurance, ventilation, and/or gas exchange Activity Limitations: Inability to ambulate independently, Inability to complete ADLs independently, Inability to ambulate community distances Participation Restrictions: Self-care, Home management, Community leisure Activity Tolerance: Tolerates 10 - 20 min activity with multiple rests Evaluation/Treatment Tolerance: Treatment limited secondary to medical complications (Comment) Diagnosis: impaired functional mobility and activity tolerance Rehab Potential: Good, to achieve stated therapy goals Barriers to Discharge: Comorbidities Eval Complexity History Profile: 1 - 2 personal factors and/or comorbidities Clinical Presentation: Evolving clinical presentation with changing characteristics Clinical Decision Making: Moderate complexity PT Recommendations Discharge Destination: Subacute rehab Discharge Equipment: Defer to facility Plan Planned PT Interventions Balance training, Bed mobility training, Gait training, Transfer training, Postural re-education, Strengthening, Functional Mobility, Neuromuscular re-education PT Frequency 2 - 5 times per week PT Duration 2 weeks Goals PT GOAL DETAILS Time Frame PT Goal 1: Pt will demonstrate the ability to perform transfers with SBA and LRAD 2 weeks PT Goal 2: Pt will demonstrate the ability to amb 300ft with SBA and LRAD 2 weeks PT Goal 3: Pt will demonstrate the ability to tolerate 15 minutes in total of static/dynamic standing activity with SBA and LRAD 2 weeks PT Goal 4: Patient will be independent with HEP and discharge recommendations for ease of transition to next level of care. 2 weeks Written by Allen Dela Cruz on 09/18/25 at 1:19 PM. * Progress Notes - Torrie Toscano - 09/18/2025 9:23 AM EDT OCCUPATIONAL THERAPY EVALUATION PATIENT DATA Patient Name Monika Zimmer Session Date 09/18/2025 OT Discharge Recommendations Subacute rehab Equipment Recommendations Defer to facility Discharge Transportation Recommendations Car HISTORY Monika Zimmer is 65 y.o. female admitted 09/17/2025 for work-up of Acute kidney injury. Hospital Course No diagnosis found. Procedures (if applicable) Past Medical History Patient has a past medical history of ADHD (attention deficit hyperactivity disorder), Allergic, Anxiety disorder, unspecified, Bleeding gums, Blood in urine, Cataract, Chronic kidney disease, Cirrhosis (CMS/HCC), Colon cancer screening (09/20/2019), Coronary artery disease, Dep ression (1995), Diabetes mellitus type 2 in obese (04/22/2015), Diabetic nephropathy, Dry mouth, Epigastric pain (08/02/2019), ETD (eustachian tube dysfunction) (07/13/2018), GERD (gastroesophageal reflux disease), Headache, Heart murmur, Hepatic encephalopathy (CMS/HCC) (10/14/2024), HL (hearing loss), Hypoparathyroidism, Inflammatory bowel disease, Irritable bowel syndrome, Jaw pain, Obesity, Osteoporosis, Other ascites (01/22/2025), Peptic ulceration, Personal history of other diseases [...] (2010); Cataract extraction (Bilateral, 2016); Bunionectomy (Right); Esophagogas troduodenoscopy; Other surgical history (2014); [place] tooth extraction; Breast surgery (2009); andRoot canal. MOBILITY GUIDELINES Mobility Protocol: General - Mobility Guidelines Extremity Precautions: No Extremity Precautions Other mobility precautions: No other precautions required PRECAUTIONS Medical Precautions Yes Medical Precautions: Fall precautions SUBJECTIVE PARTICIPANTS IN CARE Patient/Caregiver Comments Pt agreeable to therapy session. Visitors Present No Automatic Glove Turner And Former (if applicable) PRESENTATION Oxygen Supplemental oxygen Nasal cannula 2 L/min Lines and Tubes Peripheral IV 09/17/25 Anterior;Right Forearm (Active) Pre-Session Supine, Head of bed elevated, Lines intact RN agreeable Post-Session Sitting in chair, Lines intact, Call light in reach Needs met. Bracing (if applicable) HOME LIVING/SET-UP Lives With Home Type detention facility Home Equipment Rollator, Rolling walker, Wheelchair-manual Home Layout One level Bathroom Layout Additional Comments Patient reports that she has been in a faclity for the past ~2 months as she has sold her house. She reports she typically walks around the facility with a rollator but has gottenweaker over the past few days. She got assistance with bathing due to fear of falling, she stated she is typically able to get herself dressed but sometimes requests help when feeling tired. PRIOR LEVEL OF FUNCTION Receives help from Caregiver Level of Mobility Ambulatory- household only Mobility [place] Assistance with gait with device History of Falls No ADL Performance ADL Performance: Needs assistance Bathing: Needs assist Upper Body Dressing: Needs assist Lower Body Dressing: Needs assist Grooming: Independent Toileting: Independent Eating: Independent Home Management Skills: Needs assist PATIENT/FAMILY GOALS Pt goal is to be independent. OBJECTIVE PAIN Pt did not report pain this session. DELIRIUM SCREENING RASS: Alert and calm Confusion Assessment Method-ICU (CAM-ICU/PCAM-ICU) Feature 3: Altered Level of Consciousness: Negative COGNITION Overall Cognitive Status Within Functional Limits Arousal/Alertness Appropriate responses to stimuli Mood/Behavior Alert Orientation Command Following Single Step Commands: Consistently Multi-Step Commands: Consistently Method of Communication Verbal Additional Observations VISION Baseline Vision Current Vision (if different) Patient Visual Report: No problem reported. RIGHT UPPER EXTREMITY EXAMINATION Range of Motion Within Functional Limits Manual Muscle Testing Within functional limits Light Touch Sensation Intact Pain Sensation Muscle Tone LEFT UPPER EXTREMITY EXAMINATION Range of Motion Within Functional Limits Manual Muscle Testing Within functional limits Light Touch Sensation Intact Pain Sensation Muscle Tone RIGHT LOWER EXTREMITY EXAMINATION Range of Motion Within Functional Limits Manual Muscle Testing Within functional limits Light Touch Sensation Mild impairment Pain Sensation Muscle Tone LEFT LOWER EXTREMITY EXAMINATION Range of Motion Within Functional Limits Manual Muscle Testing Within functional limits Light Touch Sensation Mild impairment Pain Sensation Muscle Tone BED MOBILITY Level of [place] Physical/Non-physical Assist Adaptive Equipment Utilized Rolling/ Turning Scooting/ Bridging Stand-by assist Verbal Cues, Set-up required Bed rails Supine to Sit Stand-by assist Verbal Cues, Set-up required, HOB elevated Bed rails Sit to Supine Comments TRANSFERS Level of [place] Physical/Non- physical Assist Adaptive Equipment Utilized Sit to Stand Contact guard Verbal Cues, Set-up required Rollator Stand to sit Contact guard Verbal Cues, Set-up required Rollator Bed to Chair Toilet Transfer Contact guard Ambulation, To toilet Verbal Cues, Minimal cues Rollator Shower Transfer Interventions FUNCTIONAL MOBILITY Level of [place] Distance Adaptive Equipment Utilized Ambulation Contact guard assist, Minimal verbal cues, Minimal tactile cues 100'x2 with a seated rest break Rollator Comments Pt able to ambulate in room and hallway with rest breaks and cga using rollator walker. BALANCE Postural Appearance Posture: Within Functional Limits INTERVENTIONS Level of [place] Balance Support Comments Static Sit Standby assist Feet supported Dynamic Sit Standby assisst Feet supported Static Stand Contact guard Right upper extremity support, Left upper extremity support Dynamic Stand Contact guard Left upper extremity support, Right upper extremity support Lateral weight shifts, Anterior/Posterior weight shifts Participation in Functional Tasks: Contact guard INTERVENTIONS SELF-CARE Treatment Minutes (if applicable) 10 Interventions OT provided adl retraining with pt demonstrating sba for bed mobility, cga for sts and functional mobility at rollator walker level, and setup for grooming and donning socks. Pt ambulated to bathroom with cga and demonstrated ability to perform toileting with sba. Level of [place] Adaptive Equipment Utilized Comments Feeding Grooming SBA Standing sinkside Bathing Upper Body Dressing Lower Body Dressing Sock Level of Assistance: Setup Toileting SBA Toilet IADLs Health Management Community Re-Entry STANDARDIZED ASSESSMENTS [facility] 6-Click Daily Activities Help from Other: Don/Doff Regular Lower Body Clothings: None Help From Other: Bathing: Little Help From Other: Toileting: None Help From Other: Don/Doff Upper Body Clothings: None Help From Other: Grooming: None Help From Other: Eating Meals: None [facility] 6 Click - Daily Activities Score: 23 ASSESSMENT OT evaluation complete. Pt presents with weakness, decreased activity tolerance, decline in functional mobility and self care independence. Pt presents from subacute rehabilitation and recommend thatshe returns when medically appropriate for discharge. OT FINDINGS Impaired ADL performance, Decreased endurance/ventilation/gas exchange, Impaired balance, Impaired functional mobility Evaluation/ Treatment Tolerance (if identified) Patient limited by fatigue Rehab Potential (if identified) Good, to achieve stated therapy goals Barriers to Discharge (if identified) EVAL COMPLEXITY Occupational Profile Expanded review of medical/therapy records and additional review of physical, cognitive, or psychosocial history Performance Deficits Activities of daily living (ADLs), Instrumental activities of daily living (IADLs), Routines, Physical, Habits, Personal Clinical Decision Making Moderate Overall Eval Complexity Moderate OT RECOMMENDATIONS Discharge Destination Subacute rehab Discharge Equipment Defer to facility Recommendations for Referral to Another Service (if applicable) PLAN Planned OT Interventions ADL retraining, IADL retraining, Balance training, Bed mobility Training, Strengthening, Functionalmobility, Transfer training, Caregiver education OT Frequency 2 - 5 times per week OT Duration 2 weeks OT GOALS OT GOAL DETAILS Time Frame OT Goal 1: Pt will demonstrate improved activity tolerance to stand times 10 minutes with sba whileperforming static/dynamic adl tasks before requiring a rest break. 2 weeks OT Goal 2: Pt will complete toilet transfer with sba using adaptive equipment as needed. 2 weeks OT Goal 3: Pt will complete total body dressing with independence. 2 weeks Written by Torrie Toscano on 09/18/25 at 12:37 PM. * Care Plan - Brian Velazquez RN - 09/17/2025 11:58 PM EDT Problem: Adult Inpatient Plan of Care Goal: Plan of Care Review Outcome: Ongoing, Progressing Flowsheets (Taken 09/17/20252353) Progress: improving Outcome Evaluation: PT was able to receive all scheduled medications as ordered, as well as hygieneand production of a urine sample before bed time Plan of Care Reviewed With: patient Goal: Patient-Specific Goal (Individualized) Outcome: Ongoing, Progressing Flowsheets (Taken 09/17/20251999) Patient/Family-Specific Goals (Include Timeframe): patient will recieve all scheduled medications on time and be able to get a good nights rest Individualized Care Needs: Safety Anxieties, Fears or Concerns: none stated Goal: Absence of Hospital-Acquired Illness or Injury Outcome: Ongoing, Progressing Intervention: Identify and Manage Fall Risk Flowsheets (Taken 09/17/20252353) Safety Promotion/Fall Prevention: activity supervised clutter-free environment maintained lighting adjusted nonskid shoes/slippers when out of bed mobility aid in reach Intervention: Prevent Skin Injury Flowsheets (Taken 09/17/20252353) Body Position: weight shifting Skin Protection: incontinence pads utilized protective footwear used Intervention: Prevent and Manage VTE (Venous Thromboembolism) Risk Flowsheets (Taken 09/17/20252353) VTE Prevention/Management: medication education provided Intervention: Prevent Infection Flowsheets (Taken 09/17/20252353) Infection Prevention: environmental surveillance performed hand hygiene promoted rest/sleep promoted Goal: Optimal Comfort and Wellbeing Outcome: Ongoing, Progressing Intervention: Monitor Pain and Promote Comfort Flowsheets (Taken 09/17/20252353) Pain Management Interventions: pillow support provided relaxation techniques promoted Intervention: Provide Person-Centered Care Flowsheets (Taken 09/17/20252353) Trust Relationship/Rapport: care explained choices provided emotional support provided empathic listening provided questions answered * Care Plan - Dulce Kasper RN - 09/17/2025 6:47 PM EDT Problem: Adult Inpatient Plan of Care Goal: Plan of Care Review Outcome: Ongoing, Progressing Flowsheets (Taken 09/17/20251844) Plan of Care Reviewed With: patient Goal: Patient-Specific Goal (Individualized) Outcome: Ongoing, Progressing Flowsheets (Taken 09/17/2025 1624) Patient/Family-Specific Goals (Include Timeframe): pt will remain free of falls and injury this shift. Individualized Care Needs: safety Anxieties, Fears or Concerns: none Goal: Absence of Hospital-Acquired Illness or Injury Outcome: Ongoing, Progressing Intervention: Identify and Manage Fall Risk Flowsheets (Taken 09/17/20251844) Safety Promotion/Fall Prevention: activity supervised clutter-free environment maintained fall prevention program maintained lighting adjusted mobility aid in reach nonskid shoes/slippers when out of bed Intervention: Prevent Skin Injury Flowsheets (Taken 09/17/20251844) Body Position: side-lying 30 degrees weight shifting Skin Protection: incontinence pads utilized Intervention: Prevent and Manage VTE (Venous Thromboembolism) Risk Flowsheets (Taken 09/17/20251844) VTE Prevention/Management: medication education provided Intervention: Prevent Infection Flowsheets (Taken 09/17/20251844) Infection Prevention: hand hygiene promoted Goal: Optimal Comfort and Wellbeing Outcome: Ongoing, Progressing Intervention: Monitor Pain and Promote Comfort Flowsheets (Taken 09/17/20251844) Pain Management Interventions: medication (see MAR) emotional support relaxation techniques promoted rest Intervention: Provide Person-Centered Care Flowsheets (Taken 09/17/20251844) Trust Relationship/Rapport: care explained questions answered questions encouraged reassurance provided thoughts/feelings acknowledged * Hospital Course - Ck Hicks MD - 09/17/2025 5:06 PM EDT * H&P - Ck Hicks MD - 09/17/2025 3:54 PM EDT Images from the original note were not included. Hospital Medicine History & Physical Subjective 09/17/2025 Chief Complaint: No chief complaint on file. 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 Patient was being evaluated for liver transplant but was recently determined inactive due to lack of caregiver. Recent hospital admission 08/18-08/20 for HE, ascites, pleural effusion, CARLOTTA and UTI treated with ceftriaxone x3 days and continued on lactulose TID. Cr at discharge at the time as 2.42 and improved to1.3 but was up to 1.88 in transplant clinic today prompting hospital admission. At bedside patient does not complain of shortness of breath, chest pain, fever/chills, abdominal pain or dysuria. No frequency or urgency but states urine appears dark. She has had diarrhea for the past several days in setting of increased lactulose dosing. She has a distended abdomen with ascites but does not complain of discomfort or tenderness. She is on prophylactic ciprofloxacin and has outpatient paracentesis scheduled 09/19. On arrival she is hemodynamically stable with mildly elevated BP and not in any acute distress. Labs notable for no leukocytosis, anemia with Hgb 10.5, Cr 1.88 with baseline around 1.3-1.7. On exam ascites is noted. Last paracentesis 09/10 and patient normally get weekly paracentesis. Additional history was provided by family I reviewed prior records including her note prior to transfer, most recent discharge summary, and most recent transplant hepatology specialist note Past Medical History Past Medical History[1] Surgical History Surgical History[2] Family History Family History[3] Social History Social History[4] Home Medications Current Outpatient Medications Medication Instructions Accu-Chek [...] Daily Tums E-X 750 mg, Oral, Daily Objective Blood pressure (!) 152/93, pulse 85, temperature (!) 36 ??C (96.8 ??F), resp. rate 18, SpO2 97%, not currently . Physical Exam Constitutional: General: She is not in acute distress. Appearance: She is obese. She is ill-appearing (chronic). Eyes: General: No scleral icterus. Cardiovascular: Rate and Rhythm: Normal rate and regular rhythm. Pulses: Normal pulses. Pulmonary: Effort: Pulmonary effort is normal. Breath sounds: No wheezing, rhonchi or rales. Abdominal: General: Abdomen is protuberant. Bowel sounds are normal. There is distension. Palpations: Abdomen is soft. There is fluid wave and hepatomegaly. There is no shifting dullness. Tenderness: There is abdominal tenderness in the right upper quadrant and suprapubic area. Skin: General: Skin is warm and dry. Capillary Refill: Capillary refill takes less than 2 seconds. Coloration: Skin is jaundiced (minor). Neurological: Mental Status: She is alert and oriented to person, place, and time. Data Labs personally reviewed Recent Results (from the past 24 hours) CEA Collection Time: 09/17/25 9:44 AM Result Value Ref Range CEA, Serum 12.3 (H) <4.0 ng/mL Protime-INR Collection Time: 09/17/25 9:44 AM Result Value Ref Range Prothrombin Time 25.7 (H) 12.0 - 14.3 sec INR 2.3 (H) 0.9 - 1.1 Comprehensive metabolic panel Collection Time: 09/17/25 9:44 AM Result Value Ref Range Glucose, Plasma 215 (H) 74 - 99 mg/dL BUN, Plasma 38 (H) 8 - 23 mg/dL Creatinine, Plasma 1.88 (H) 0.60 - 1.10 mg/dL BUN/Creatinine Ratio 20 Sodium, Plasma 138 136 - 145 mmol/L Potassium, Plasma 3.7 3.6 - 4.9 mmol/L Chloride, Plasma 97 97 - 107 mmol/L CO2, Plasma 24 22 - 29 mmol/L Anion Gap 17 (H) 6 - 16 mmol/L Total Calcium, Plasma 9.0 8.9 - 10.2 mg/dL Total Protein 7.4 6.3 - 7.9 g/dL Albumin, Plasma 3.5 3.5 - 5.2 g/dL AST, Plasma 63 (H) 10 - 35 U/L ALT, Plasma 21 10 - 35 U/L Alkaline Phosphatase, Plasma 127 46 - 142 U/L Total Bilirubin, Plasma 5.0 (H) 0.2 - 1.1 mg/dL eGFRcr 29.7 mL/min/1.73m*2 CBC w/o differential Collection Time: 09/17/25 9:44 AM Result Value Ref Range WBC Count 4.34 3.70 - 10.30 10*3/uL RBC Count 3.20 (L) 3.90 - 5.20 10*6/uL HGB 10.5 (L) 11.2 - 15.7 g/dL HCT 31.5 (L) 34.0 - 45.0 % Platelet Count 52 (L) 155 - 369 10*3/uL MCV 98 79 - 98 fL MCH 32.8 (H) 26.0 - 32.0 pg MCHC 33.3 30.7 - 35.5 g/dL RDW 16.0 (H) 11.5 - 14.5 % MPV 11.2 8.8 - 12.5 fL nRBC 0.0 <=0.0 per 100 WBCs Alcohol Urine Collection Time: 09/17/25 9:44 AM Result Value Ref Range Alcohol Urine Negative Negative N-Terminal Probnp Collection Time: 09/17/25 9:44 AM Result Value Ref Range N-Terminal, PROBNP, Plasma 511 0 - 899 pg/mL POCT glucose meter Collection Time: 09/17/25 5:34 PM Result Value Ref Range POCT Glucose 137 (H) 74 - 99 mg/dL Comment Ash Conveyor Operator ID Aneta Misierra [place] Device ID [id number] Specimen Type POC Capillary Imaging No new imaging to review Assessment/Plan Assessment/ Plan Active Problems: There are no active Hospital Problems. Monika Zimmer is a 65 y.o. female with PMH as per above who presents with concern for CARLOTTA. This condition poses an acute threat to life/bodily function. 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 Severe, diffuse and mosaic portal hypertensive gastropathy in the cardia, fundus of the stomach, body of the stomach, incisura and antrum EGD 02/05/25 - two medium varices in lower third of esophagus with 2 bands placed; single ulcer in lower third of esophagus with clean base, sara III Not a candidate for TIPS Listed for OLT, however inactivated as of April 2025 due to concerns with Caregiver (son) no longer being able to provide care; Reassessed on 06/11/25 and 09/17 with issue not resolved and remains in nursing Facility in [place], sister and mother are unable to provide care; sister also verbalizes difficulty with getting patient to take medications and concerns with quality of life post transplant MELD 3.0: 29 and MELD-Na: 28 Plan: - Continue Rifaximin 550 mg BID, lactulose, encouraged compliance - continue cipro for SBP prophy - assess need for repeat thoracentesis and/or paracentesis while inpatient Chronic Anemia Thrombocytopenia - Hgb 10.5 and Plt 52, both appear approximately at baseline - likely due to ACD and known kidney disease Plan: - transfuse to Hgb >7 - monitor with labs Anxiety and Depression worsened by recent news of coming off liver transplant list - recent worsening depression as son has given up on helping patient Plan: - home Sertraline 25 mg - consult palliative medicine in AM for further goals and possible conversations on hospice care aspatient is in end stage liver disease Moderate protein-calorie malnutrition Counseled on the importance of increasing protein intake, advised to get 1.2-1.5 gram/kg a day. Advsied to take late night snack/shake and upon waking up and several times a day Plan: - consult nutrition T2DM c/b Neuropathy - Home regimen: Insulin glargine 24 units daily and lispro TID with sliding scale Plan: - Glargine 24u nightly - SSI while inpatient - low carb diet COPD JONATHAN - wears BiPAP nightly Plan: - BiPAP nightly; patient may bring home machine in w/ RT to manage Osteoporosis - DEXA scan showed osteoporosis Plan: - consult PT/OT for eval and treatment of frailty Chronic Medical Conditions: GERD: home Tums 750 mg daily Allergies: Continue home zyrtec 10 mg by mouth daily Vitamin-D deficiency: Continue home calcitriol, D2, and D3 daily CAD: Crestor being held since most recent nephrology visit. Continue to hold Constipation: Continue home senna and Miralax Care today included: HIGHRISK: High risk: Escalation of level of care: admission to inpatient Electronically Signed by: Ck Hicks MD - 09/17/2025 - 3:55 PM [1] Past Medical History: Diagnosis Date ADHD (attention deficit hyperactivity disorder) Allergic Anxiety disorder, unspecified Anxiety Bleeding gums Blood in urine Cataract Chronic kidney disease Cirrhosis (CMS/HCC) Colon cancer screening 09/20/2019 Added automatically from request for surgery [id number] Coronary artery disease Depression 1996 Diabetes mellitus type 2 in obese 04/22/2015 Diabetic nephropathy Dry mouth Epigastric pain 08/02/2019 ETD (eustachian [...] 1979 BLADDER SURGERY N/A Bladder surgery from [facility] BREAST BIOPSY 2011 BREAST SURGERY 2010 BUNIONECTOMY Right CATARACT EXTRACTION Bilateral 2016 CHOLECYSTECTOMY 1980 ESOPHAGOGASTRODUODENOSCOPY HYSTERECTOMY N/A Hysterectomy from [facility] KNEE SURGERY Bilateral ORAL SURGERY N/A Oral surgery from [facility] OTHER SURGICAL HISTORY 2015 ROOT CANAL WISDOM [...] Asthma Son Jpsage Zimmer Mental illness Son Jpamrik Zimmer Depression Son Viralarnoldo Zimmer Diabetes Son Viral Zimmer [4] Social History Tobacco Use Smoking status: Never Passive exposure: Never Smokeless tobacco: Never Vaping Use Vaping status: Never Used Substance Use Topics Alcohol use: Not Currently Drug use: Never Cosigned by Latonia Dowell MD at 09/17/2025 10:39 PM EDT Associated attestation - Latonia Dowell MD - 09/17/2025 10:39 PM EDT I saw and evaluated the patient. I discussed the case with the resident/fellow and agree with the findings and plan as documented. History from patient and family. Due to correction resident status, cirrhosis and co-morbidities, she is high risk. Reviewed complete blood counts and complete metabolic panel from today and several days ago. Reviewed records from today and several days ago. Care plan discussed with patient and family. Monitoring Kidney and Liver functions due to acute kidney injury and decompensated cirrhosis. documented in this encounter Plan of Treatment Upcoming Encounters Date Type Department Care Team (Late st Contact Info) Description 11/13/2025 1:00 PM EST Appointment [facility] [address] [place] [address] 11/13/2025 2:00 PM EST Appointment [facility] [address] [place] [address] 11/20/2025 11:45 AM EST Appointment [facility] [address] [place] [address] 11/20/2025 12:45 PM EST Appointment [facility] [address] [place] [address] 11/22/2025 1:00 PM EST Office Visit [facility] [address] [facility] [place] [address] [place] [address] Barrie Peterson MD [address] [place] [address] 11/28/2025 10:00 AM EST Appointment [facility] [address] [place] [address] 11/28/2025 11:00 AM EST Appointment [facility] [address] [place] [address] 12/05/2025 10:00 AM EST Appointment [facility] [address] [place] [address] 12/05/2025 11:00 AM EST Appointment [facility] [address] [place] [address] 12/20/2025 11:00 AM EST Office Visit [facility] Endocr[facility]ology [address] [place] [address] Miranda Hobson, REVIEW RN [address] [place] [address] 03/07/2026 9:00 AM EDT Office Visit [facility] [address] [place] [address] Grover Little MD [address] [place] [address] documented as of this encounter Procedures Procedure Name Priority Date/Time Associated Diagnosis Comments POCT GLUCOSE METER UNSOLICITED RESULTS Routine 09/23/2025 8:41 AM EST CBC W/O DIFFERENTIAL Routine 09/23/2025 2:11 AM EST POCT GLUCOSE METER UNSOLICITED RESULTS Routine 09/23/2025 2:07 AM EST POCT GLUCOSE METER UNSOLICITED RESULTS Routine 09/22/2025 8:41 PM EST POCT GLUCOSE METER UNSOLICITED RESULTS Routine 09/22/2025 5:16 PM EST POCT GLUCOSE METER UNSOLICITED RESULTS Routine 09/22/2025 12:07 PM EST POCT GLUCOSE METER UNSOLICITED RESULTS Routine 09/22/2025 8:25 AM EST POCT GLUCOSE METER UNSOLICITED RESULTS Routine 09/22/2025 3:17 AM EST POCT GLUCOSE METER UNSOLICITED RESULTS Routine 09/21/2025 8:03 PM EDT NON-INVASIVE VENTILATION Routine 09/21/2025 8:00 PM EDT POCT GLUCOSE METER UNSOLICITED RESULTS Routine 09/21/2025 5:55 PM EDT POCT GLUCOSE METER UNSOLICITED RESULTS Routine 09/21/2025 11:11 AM EDT BASIC METABOLIC PANEL, PLASMA Routine 09/21/2025 10:25 AM EDT NON-INVASIVE VENTILATION Routine 09/21/2025 8:00 AM EDT POCT GLUCOSE METER UNSOLICITED RESULTS Routine 09/21/2025 7:39 AM EDT POCT GLUCOSE METER UNSOLICITED RESULTS Routine 09/20/2025 8:05 PM EDT NON-INVASIVE VENTILATION Routine 09/20/2025 8:00 PM EDT POCT GLUCOSE METER UNSOLICITED RESULTS Routine 09/20/2025 5:58 PM EDT POCT GLUCOSE METER UNSOLICITED RESULTS Routine 09/20/2025 11:13 AM EDT NON-INVASIVE VENTILATION Routine 09/20/2025 8:00 AM EDT POCT GLUCOSE METER UNSOLICITED RESULTS Routine 09/20/2025 7:58 AM EDT BASIC METABOLIC PANEL, PLASMA Routine 09/20/2025 3:38 AM EDT POCT GLUCOSE METER UNSOLICITED RESULTS Routine 09/20/2025 2:54 AM EDT NON-INVASIVE VENTILATION Routine 09/19/2025 8:00 PM EDT POCT GLUCOSE METER UNSOLICITED RESULTS Routine 09/19/2025 7:52 PM EDT POCT GLUCOSE METER UNSOLICITED RESULTS Routine 09/19/2025 5:28 PM EDT EXTRA TUBE LAVENDER TOP Routine 09/19/20 3:33 PM EDT EXTRA TUBES Routine 09/19/2025 3:33 PM EDT VITAMIN D, 1, 25-DIHYDROXY Routine 09/19/2025 3:33 PM EDT BASIC METABOLIC PANEL, PLASMA Routine 09/19/2025 3:33 PM EDT XR CHEST 1 VIEW STAT 09/19/2025 11:32 AM EDT US GUIDED ABDOMINAL PARACENTESIS Routine 09/19/2025 10:28 AM EDT Alcoholic cirrhosis of liver with ascites US GUIDED THORACENTESIS Routine 09/19/20 10:28 AM EDT Other ascites TOTAL PROTEIN, PLEURAL FLUID Routine 09/19/2025 10:11 AM EDT LACTATE DEHYDROGENASE, PLEURAL FLUID Routine 09/19/2025 10:11 AM EDT BODY FLUID CULTURE AND GRAM STAIN Routine 09/19/2025 10:11 AM EDT BODY FLUID CELL COUNT W/ MANUAL DIFFERENTIAL Routine 09/19/2025 10:10 AM EDT BODY FLUID, CYTOSPIN, PATHOLOGIST INTERPRETATION Routine 09/19/2025 10:10 AM EDT BODY FLUID CELL COUNT W/ MANUAL DIFFERENTIAL Routine 09/19/2025 9:18 AM EDT ALBUMIN, PERITONEAL FLUID Routine 09/19/2025 9:18 AM EDT BODY FLUID, CYTOSPIN, PATHOLOGIST INTERPRETATION Routine 09/19/2025 9:18 AM EDT BODY FLUID CULTURE AND GRAM STAIN Routine 09/19/2025 9:18 AM EDT TOTAL PROTEIN, PERITONEAL FLUID Routine 09/19/2025 9:18 AM EDT LACTATE DEHYDROGENASE, PERITONEAL FLUID Routine 09/19/2025 9:18 AM EDT GLUCOSE, PERITONEAL FLUID Routine 09/19/2025 9:18 AM EDT POCT GLUCOSE METER UNSOLICITED RESULTS Routine 09/19/2025 7:34 AM EDT POCT GLUCOSE METER UNSOLICITED RESULTS Routine 09/18/2025 8:19 PM EDT NON-INVASIVE VENTILATION Routine 09/18/2025 8:00 PM EDT POCT GLUCOSE METER UNSOLICITED RESULTS Routine 09/18/2025 5:02 PM EDT POCT GLUCOSE METER UNSOLICITED RESULTS Routine 09/18/2025 11:23 AM EDT POCT GLUCOSE METER UNSOLICITED RESULTS Routine 09/18/2025 8:23 AM EDT BASIC METABOLIC PANEL, PLASMA Routine 09/18/2025 7:49 AM EDT POCT GLUCOSE METER UNSOLICITED RESULTS Routine 09/18/2025 7:46 AM EDT URINALYSIS WITH REFLEX MICROSCOPIC AND CULTURE Routine 09/17/2025 10:22 PM EDT URINE SUBRAMANIAN PANEL Routine 09/17/2025 10:2 2 PM EDT URINALYSIS MICROSCOPIC FOR UA REFLEX Routine 09/17/2025 10:22 PM EDT URINALYSIS WITH REFLEX MICROSCOPIC Routine 09/17/2025 10:22 PM EDT POCT GLUCOSE METER UNSOLICITED RESULTS Routine 09/17/2025 8:11 PM EDT EXTRA TUBE LAVENDER TOP Routine 09/17/20 6:36 PM EDT EXTRA TUBES Routine 09/17/2025 6:36 PM EDT BASIC METABOLIC PANEL, PLASMA Routine 09/17/2025 6:13 PM EDT MULTI DRUG RESISTANCE TEST Routine 09/17/2025 6:12 PM EDT POCT GLUCOSE METER UNSOLICITED RESULTS Routine 09/17/2025 5:34 PM EDT NON-INVASIVE VENTILATION Routine 09/17/2025 5:20 PM EDT NON-INVASIVE VENTILATION Routine 09/17/2025 5:20 PM EDT NON-INVASIVE VENTILATION Routine 09/17/2025 5:20 PM EDT N-TERMINAL PROBNP, PLASMA Add-On 09/17/2025 9:44 AM EDT documented in this encounter Results * (ABNORMAL) POCT glucose meter (09/23/2025 8:41 AM EST) POCT Glucose 168(H) 74 - 99 mg/dL 09/23/2025 8:44 AM EST [facility] Comment:Accuracy of a glucos e result obtained from a capillary whole blood specimen relies upon adequate, non-compromised capillary blood flow. If the capillary glucose result is not consistent with the patient's clinical signs and symptoms, glucose testing should be repeated with either an arterial or venous sample on the glucometer or sent to the main labortory for testing. Comment 09/23/2025 8:44 AM EST [facility] Ash Conveyor Operator ID Karen Khoury 09/23/2025 8:44 AM EST [facility] Device ID [id number] 09/23/2025 8:44 AM EST [facility] Specimen Type POC Capillary 09/23/2025 8:44 AM EST [facility] Blood Capillary blood specimen / Unknown 09/23/2025 8:41 AM EST 09/23/2025 8:44 AM EST us Latonia Dowell MD LAB POINT OF CARE TE ST DOCKED DEVICE UNSOLICITED RESULTS Final Result [facility] [address] [place] [id number] * (ABNORMAL) CBC W/O Differential (09/23/2025 2:11 AM EST) WBC Count 4.25 3.70 - 10.30 10*3/uL LAB HEMATOLOGY METHOD 09/23/2025 2:21 AM EST [facility] RBC Count 3.09(L) 3.90 - 5.20 10*6/uL LAB HEMATOLOGY METHOD 09/23/2025 2:21 AM EST [facility] HGB 9.8(L) 11.2 - 15.7 g/dL LAB HEMATOLOGY METHOD 09/23/2025 2:21 AM EST [facility] HCT 29.9(L) 34.0 - 45.0 % LAB HEMATOLOGY METHOD 09/23/2025 2:21 AM EST [facility] Platelet Count 43(L) 155 - 369 10*3/uL LAB HEMATOLOGY METHOD 09/23/2025 2:21 AM EST [facility] MCV 97 79 - 98 fL LAB HEMATOLOGY METHOD 09/23/2025 2:21 AM EST [facility] MCH 31.7 26.0 - 32.0 pg LAB HEMATOLOGY METHOD 09/23/2025 2:21 AM EST [facility] MCHC 32.8 30.7 - 35.5 g/dL LAB HEMATOLOGY METHOD 09/23/2025 2:21 AM EST [facility] RDW 15.9(H) 11.5 - 14.5 % LAB HEMATOLOGY METHOD 09/23/2025 2:21 AM EST [facility] MPV 11.5 8.8 - 12.5 fL LAB HEMATOLOGY METHOD 09/23/2025 2:21 AM EST [facility] nRBC 0.0 <=0.0 per 100 WBCs LAB HEMATOLOGY METHOD 09/23/2025 2:21 AM EST [facility] Blood Venous blood specimen / Unknown Venipuncture / Unknown 09/23/2025 2:11 AM EST 09/23/2025 2:13 AM EST us Latonia Dowell MD LAB BLOOD ORDERABLES Final Resul t [facility] [address] [place] [address] * (ABNORMAL) POCT glucose meter (09/23/2025 2:07 AM EST) [facility] POCT Glucose 182(H) 74 - 99 mg/dL 09/23/2025 2:09 AM EST [facility] Comment:Accuracy of a glucos e result obtained from a capillary whole blood specimen relies upon adequate, non-compromised capillary blood flow. If the capillary glucose result is not consistent with the patient's clinical signs and symptoms, glucose testing should be repeated with either an arterial or venous sample on the glucometer or sent to the main labortory for testing. Comment 09/23/2025 2:09 AM EST [facility] Ash Conveyor Operator ID Nancy Álvarez 09/23/2025 2:09 AM EST [facility] Device ID [id number] 09/23/2025 2:09 AM EST [facility] Specimen Type POC Capillary 09/23/2025 2:09 AM EST [facility] Blood Capillary blood specimen / Unknown 09/23/2025 2:07 AM EST 09/23/2025 2:09 AM EST Latonia Dowell MD LAB POINT OF CARE TE ST DOCKED DEVICE UNSOLICITED RESULTS Final Result Performing Organization Address City/State/[facility] Co de Phone Number [facility] [address] [place] [address] * (ABNORMAL) POCT glucose meter (09/22/2025 8:41 PM EST) [facility] POCT Glucose 299(H) 74 - 99 mg/dL 09/22/2025 8:43 PM EST [facility] Comment:Accuracy of a glucos e result obtained from a capillary whole blood specimen relies upon adequate, non-compromised capillary blood flow. If the capillary glucose result is not consistent with the patient's clinical signs and symptoms, glucose testing should be repeated with either an arterial or venous sample on the glucometer or sent to the main labortory for testing. Comment 09/22/2025 8:43 PM EST [facility] Ash Conveyor Operator ID Nancy Álvarez 09/22/2025 8:43 PM EST [facility] Device ID [id number] 09/22/2025 8:43 PM EST [facility] Specimen Type POC Capillary 09/22/2025 8:43 PM EST [facility] Blood Capillary blood specimen / Unknown 09/22/2025 8:41 PM EST 09/22/2025 8:43 PM EST Latonia Dowell MD LAB POINT OF CARE TE ST DOCKED DEVICE UNSOLICITED RESULTS Final Result Performing Organization Address [facility] de Phone Number [facility] [address] [place] [address] * (ABNORMAL) POCT glucose meter (09/22/2025 5:16 PM EST) Pathologist [facility] POCT Glucose 247(H) 74 - 99 mg/dL 09/22/2025 6:40 PM EST [facility] Comment:Accuracy of a glucos e result obtained from a capillary whole blood specimen relies upon adequate, non-compromised capillary blood flow. If the capillary glucose result is not consistent with the patient's clinical signs and symptoms, glucose testing should be repeated with either an arterial or venous sample on the glucometer or sent to the main labortory for testing. Comment 09/22/2025 6:40 PM EST [facility] Ash Conveyor Operator ID Candace Gomes 09/22/20 6:40 PM EST [facility] Device ID [id number] 09/22/2025 6:40 PM EST [facility] Specimen Type POC Capillary 09/22/2025 6:40 PM EST [facility] Blood Capillary blood specimen / Unknown 09/22/2025 5:16 PM EST 09/22/2025 6:40 PM EST Latonia Dowell MD LAB POINT OF CARE TE ST DOCKED DEVICE UNSOLICITED RESULTS Final Result Performing Organization Address City/[facility] Co de Phone Number [facility] [address] [place] [address] * (ABNORMAL) POCT glucose meter (09/22/2025 12:07 PM EST) Pathologist [facility] POCT Glucose 206(H) 74 - 99 mg/dL 09/22/2025 12:14 PM EST [facility] Comment:Accuracy of a glucos e result obtained from a capillary whole blood specimen relies upon adequate, non-compromised capillary blood flow. If the capillary glucose result is not consistent with the patient's clinical signs and symptoms, glucose testing should be repeated with either an arterial or venous sample on the glucometer or sent to the main labortory for testing. Comment 09/22/2025 12:14 PM EST [facility] Ash Conveyor Operator ID Candace Gomes 09/22/20 12:14 PM EST [facility] Device ID [id number] 09/22/2025 12:14 PM [facility] Specimen Type POC Capillary 09/22/2025 12:14 PM [facility] Blood Capillary blood specimen / Unknown 09/22/2025 12:07 PM EST 09/22/2025 12:14 PM EST Latonia Dowell MD LAB POINT OF CARE TE ST DOCKED DEVICE UNSOLICITED RESULTS Final Result Performing Organization Address City/[facility] Co de Phone Number [facility] [address] [place] [address] * (ABNORMAL) POCT glucose meter (09/22/2025 8:25 AM EST) POCT Glucose 159(H) 74 - 99 mg/dL 09/22/2025 9:00 AM EST [facility] Comment:Accuracy of a glucos e result obtained from a capillary whole blood specimen relies upon adequate, non-compromised capillary blood flow. If the capillary glucose result is not consistent with the patient's clinical signs and symptoms, glucose testing should be repeated with either an arterial or venous sample on the glucometer or sent to the main labortory for testing. Comment 09/22/2025 9:00 AM EST [facility] Ash Conveyor Operator ID Candace Gomes 09/22/20 9:00 AM EST [facility] Device ID [id number] 09/22/2025 9:00 AM EST [facility] Specimen Type POC Capillary 09/22/2025 9:00 AM EST [facility] Blood Capillary blood specimen / Unknown 09/22/2025 8:25 AM EST 09/22/2025 9:00 AM EST Latonia Dowell MD LAB POINT OF CARE TE ST DOCKED DEVICE UNSOLICITED RESULTS Final Result Performing Organization Address City/[facility]/ZIP Co de Phone Number [facility] [address] [place] [address] * (ABNORMAL) POCT glucose meter (09/22/2025 3:17 AM EST) POCT Glucose 144(H) 74 - 99 mg/dL 09/22/2025 3:18 AM EST [facility] Comment:Accuracy of a glucos e result obtained from a capillary whole blood specimen relies upon adequate, non-compromised capillary blood flow. If the capillary glucose result is not consistent with the patient's clinical signs and symptoms, glucose testing should be repeated with either an arterial or venous sample on the glucometer or sent to the main labortory for testing. Comment 09/22/2025 3:18 AM EST [facility] Ash Conveyor Operator ID Thomas Gantine 09/22/2025 3:18 AM EST [facility] Device ID [id number] 09/22/2025 3:18 AM EST [facility] Specimen Type POC Capillary 09/22/2025 3:18 AM EST [facility] Blood Capillary blood specimen / Unknown 09/22/2025 3:17 AM EST 09/22/2025 3:18 AM EST Latonia Dowell MD LAB POINT OF CARE TE ST DOCKED DEVICE UNSOLICITED RESULTS Final Result Performing Organization Address City/State/[facility] Co de Phone Number [facility] [address] [place], [place] [id number] * (ABNORMAL) POCT glucose meter (09/21/2025 8:03 PM EDT) Pathologist [facility] POCT Glucose 251(H) 74 - 99 mg/dL 09/21/2025 8:12 PM EDT [facility] Comment:Accuracy of [...] to the main labortory for testing. Comment 09/21/2025 8:12 PM EDT [facility] Ash Conveyor Operator ID Deysi Gant 09/21/2025 8:12 PM EDT [facility] Device ID [id number] 09/21/2025 8:12 PM EDT [facility] Specimen Type POC Capillary 09/21/2025 8:12 PM EDT [facility] Blood Capillary blood specimen / Unknown 09/21/2025 8:03 PM EDT 09/21/2025 8:12 PM EDT Latonia Dowell MD LAB POINT OF CARE TE ST DOCKED DEVICE UNSOLICITED RESULTS Final Result Performing Organization Address City/[facility]/ZIP Co de Phone Number [facility] [address] [place] [address] * (ABNORMAL) POCT glucose meter (09/21/2025 5:55 PM EDT) POCT Glucose 352(H) 74 - 99 mg/dL 09/21/2025 5:58 PM EDT [facility] Comment:Accuracy of [...] to the main labortory for testing. Comment 09/21/2025 5:58 PM EDT [facility] Ash Conveyor Operator ID IledaEva sosa 09/21/2025 5:58 PM EDT [facility] Device ID [id number] 09/21/2025 5:58 PM EDT [facility] Specimen Type POC Capillary 09/21/2025 5:58 PM EDT [facility] Blood Capillary blood specimen / Unknown 09/21/2025 5:55 PM EDT 09/21/2025 5:58 PM EDT Latonia Dowell MD LAB POINT OF CARE TE ST DOCKED DEVICE UNSOLICITED RESULTS Final Result [facility] [address] [place] [address] * (ABNORMAL) POCT glucose meter (09/21/2025 11:11 AM EDT) POCT Glucose 236(H) 74 - 99 mg/dL 09/21/2025 11:27 AM EDT [facility] Comment:Accuracy of [...] to the main labortory for testing. Comment 09/21/2025 11:27 AM EDT [facility] Ash Conveyor Operator ID Kaice Carver 11:27 AM EDT [facility] Device ID [id number] 09/21/2025 11:27 AM EDT [facility] Specimen Type POC Capillary 09/21/2025 11:27 AM [facility] Blood Capillary blood specimen / Unknown 09/21/2025 11:11 AM EDT 09/21/2025 11:27 AM EDT us Latonia Dowell MD LAB POINT OF CARE TE ST DOCKED DEVICE UNSOLICITED RESULTS Final Result Performing Organization Address City/State/[facility] de Phone Number [facility] [address] [place] [address] * (ABNORMAL) Basic metabolic panel (09/21/2025 10:25 AM EDT) Glucose, Plasma 230(H) 74 - 99 mg/dL 09/21/2025 11:02 AM EDT [facility] BUN, Plasma 45(H) 8 - 23 mg/dL 09/21/2025 11:02 AM EDT [facility] Creatinine, Plasma 1.63(H) 0.60 - 1.10 mg/dL 09/21/2025 11:02 AM EDT [facility] BUN/Creatinine Ratio 28 09/21/2025 11:02 AM EDT [facility] Sodium, Plasma 137 136 - 145 mmol/L 09/21/2025 11:02 AM EDT [facility] Potassium, Plasma 3.7 3.6 - 4.9 mmol/L 09/21/2025 11:02 AM EDT [facility] Chloride, Plasma 101 97 - 107 mmol/L 09/21/2025 11:02 AM EDT [facility] CO2, Plasma 22 22 - 29 mmol/L 09/21/2025 11:02 AM EDT [facility] Anion Gap 14 6 - 16 mmol/L 09/21/2025 11:02 AM EDT [facility] Total Calcium, Plasma 8.8(L) 8.9 - 10.2 mg/dL 09/21/2025 11:02 AM EDT [facility] eGFRcr 35.3 mL/min/1.7 3m*2 09/21/2025 11:02 AM EDT [facility] Comment:Reported eGFRcr in m L/min/1.73m2 is based the CKD-EPI 2020 equation that does not use a race coefficient. Blood Venous blood specimen / Unknown Venipuncture / Unknown 09/21/2025 10:25 AM EDT 09/21/2025 10:28 AM EDT Latonia Dowell MD LAB BLOOD ORDERABLES Final Resul t [facility] [address] [place] [address] * (ABNORMAL) POCT glucose meter (09/21/2025 7:39 AM EDT) POCT Glucose 124(H) 74 - 99 mg/dL 09/21/2025 7:58 AM [facility] Comment:Accuracy of a glucos e result obtained from a capillary whole blood specimen relies upon adequate, non-compromised capillary blood flow. If the capillary glucose result is not consistent with the patient's clinical signs and symptoms, glucose testing should be repeated with either an arterial or venous sample on the glucometer or sent to the main labortory for testing. Comment 09/21/2025 7:58 AM EDT [facility] Ash Conveyor Operator ID Kacie Carver 7:58 AM EDT [facility] Device ID [id number] 09/21/2025 7:58 AM EDT [facility] Specimen Type POC Capillary 09/21/2025 7:58 AM EDT [facility] Blood Capillary blood specimen / Unknown 09/21/2025 7:39 AM EDT 09/21/2025 7:58 AM EDT Latonia Dowell MD LAB POINT OF CARE TE ST DOCKED DEVICE UNSOLICITED RESULTS Final Result Performing Organization Address City/[facility] Co de Phone Number [facility] [address] [place] [address] * (ABNORMAL) POCT glucose meter (09/20/2025 8:05 PM EDT) [facility] POCT Glucose 218(H) 74 - 99 mg/dL 09/20/2025 8:07 PM EDT [facility] Comment:Accuracy of [...] to the main labortory for testing. Comment 09/20/2025 8:07 PM EDT [facility] Ash Conveyor Operator ID Yamile Carmichael 09/20/2025 8:07 PM EDT [facility] Device ID [id number] 09/20/2025 8:07 PM EDT [facility] Specimen Type POC Capillary 09/20/2025 8:07 PM EDT [facility] Blood Capillary blood specimen / Unknown 09/20/2025 8:05 PM EDT 09/20/2025 8:07 PM EDT Result [facility] Latonia Dowell MD LAB POINT OF CARE TE ST DOCKED DEVICE UNSOLICITED RESULTS Final Result Performing Organization Address City/[facility] Co de Phone Number [facility] [address] [place] [address] * (ABNORMAL) POCT glucose meter (09/20/2025 5:58 PM EDT) [facility] POCT Glucose 206(H) 74 - 99 mg/dL 09/20/2025 6:04 PM EDT [facility] Comment:Accuracy of [...] to the main labortory for testing. Comment 09/20/2025 6:04 PM EDT [facility] Ash Conveyor Operator ID Kacie Carver 6:04 PM EDT [facility] Device ID [id number] 09/20/2025 6:04 PM EDT [facility] Specimen Type POC Capillary 09/20/2025 6:04 PM EDT [facility] Blood Capillary blood specimen / Unknown 09/20/2025 5:58 PM EDT 09/20/2025 6:04 PM EDT Latonia Dowell MD LAB POINT OF CARE TE ST DOCKED DEVICE UNSOLICITED RESULTS Final Result Performing Organization Address City/[facility] Co de Phone Number [facility] [address] [place] [address] * (ABNORMAL) POCT glucose meter (09/20/2025 11:13 AM EDT) [facility] POCT Glucose 160(H) 74 - 99 mg/dL 09/20/2025 11:18 AM EDT [facility] Comment:Accuracy of [...] to the main labortory for testing. Comment 09/20/2025 11:18 AM EDT [facility] Ash Conveyor Operator ID Kacie Carver 11:18 AM EDT [facility] Device ID [id number] 09/20/2025 11:18 AM EDT [facility] Specimen Type POC Capillary 09/20/2025 11:18 AM EDT [facility] Blood Capillary blood specimen / Unknown 09/20/2025 11:13 AM EDT 09/20/2025 11:18 AM EDT Latonia Dowell MD LAB POINT OF CARE TE ST DOCKED DEVICE UNSOLICITED RESULTS Final Result Performing Organization Address City/[facility]/ZIP Co de Phone Number [facility] [address] [place] [address] * (ABNORMAL) POCT glucose meter (09/20/2025 7:58 AM EDT) [facility] POCT Glucose 112(H) 74 - 99 mg/dL 09/20/2025 8:14 AM EDT [facility] Comment:Accuracy of a glucos e result obtained from a capillary whole blood specimen relies upon adequate, non-compromised capillary blood flow. If the capillary glucose result is not consistent with the patient's clinical signs and symptoms, glucose testing should be repeated with either an arterial or venous sample on the glucometer or sent to the main labortory for testing. Comment 09/20/2025 8:14 AM EDT [facility] Ash Conveyor Operator ID Kacie Carver 8:14 AM EDT [facility] Device ID [id number] 09/20/2025 8:14 AM EDT [facility] Specimen Type POC Capillary 09/20/2025 8:14 AM EDT [facility] Blood Capillary blood specimen / Unknown 09/20/2025 7:58 AM EDT 09/20/2025 8:14 AM EDT Latonia Dowell MD LAB POINT OF CARE TE ST DOCKED DEVICE UNSOLICITED RESULTS Final Result [facility] [address] [place] [address] * (ABNORMAL) Basic metabolic panel (09/20/2025 3:38 AM EDT) [facility] Glucose, Plasma 100(H) 74 - 99 mg/dL 09/20/2025 4:09 AM EDT [facility] BUN, Plasma 44(H) 8 - 23 mg/dL 09/20/2025 4:09 AM EDT [facility] Creatinine, Plasma 1.68(H) 0.60 - 1.10 mg/dL 09/20/2025 4:09 AM EDT [facility] BUN/Creatinine Ratio 26 09/20/2025 4:09 AM EDT [facility] Sodium, Plasma 138 136 - 145 mmol/L 09/20/2025 4:09 AM EDT [facility] Potassium, Plasma 3.7 3.6 - 4.9 mmol/L 09/20/2025 4:09 AM EDT [facility] Chloride, Plasma 103 97 - 107 mmol/L 09/20/2025 4:09 AM EDT [facility] CO2, Plasma 24 22 - 29 mmol/L 09/20/2025 4:09 AM EDT [facility] Anion Gap 11 6 - 16 mmol/L 09/20/2025 4:09 AM EDT [facility] Total Calcium, Plasma 8.6(L) 8.9 - 10.2 mg/dL 09/20/2025 4:09 AM EDT [facility] eGFRcr 34.0 mL/min/1.7 3m*2 09/20/2025 4:09 AM EDT [facility] Comment:Reported eGFRcr in m L/min/1.73m2 is based the CKD-EPI 2020 equation that does not use a race coefficient. Blood Venous blood specimen / Unknown Venipuncture / Unknown 09/20/2025 3:38 AM EDT 09/20/2025 3:42 AM EDT us Latonia Dowell MD LAB BLOOD ORDERABLES Final Resul t [facility] [address] [place] [address] * (ABNORMAL) POCT glucose meter (09/20/2025 2:54 AM EDT) POCT Glucose 106(H) 74 - 99 mg/dL 09/20/2025 2:55 AM [facility] Comment:Accuracy of a glucos e result obtained from a capillary whole blood specimen relies upon adequate, non-compromised capillary blood flow. If the capillary glucose result is not consistent with the patient's clinical signs and symptoms, glucose testing should be repeated with either an arterial or venous sample on the glucometer or sent to the main labortory for testing. Comment 09/20/2025 2:55 AM EDT [facility] Ash Conveyor Operator ID Margarette Angel 09/20/2025 2:55 AM EDT [facility] Device ID [id number] 09/20/2025 2:55 AM EDT [facility] Specimen Type POC Capillary 09/20/2025 2:55 AM EDT [facility] Blood Capillary blood specimen / Unknown 09/20/2025 2:54 AM EDT 09/20/2025 2:55 AM EDT Latonia Dowell MD LAB POINT OF CARE TE ST DOCKED DEVICE UNSOLICITED RESULTS Final Result Performing Organization Address [facility] de Phone Number [facility] [address] [place] [address] * (ABNORMAL) POCT glucose meter (09/19/2025 7:52 PM EDT) [facility] POCT Glucose 269(H) 74 - 99 mg/dL 09/19/2025 7:53 PM EDT [facility] Comment:Accuracy of [...] to the main labortory for testing. Comment 09/19/2025 7:53 PM EDT [facility] Ash Conveyor Operator ID Margarette Angel 09/19/2025 7:53 PM EDT [facility] Device ID [id number] 09/19/2025 7:53 PM EDT [facility] Specimen Type POC Capillary 09/19/2025 7:53 PM EDT [facility] Blood Capillary blood specimen / Unknown 09/19/2025 7:52 PM EDT 09/19/2025 7:53 PM EDT Latonia Dowell MD LAB POINT OF CARE TE ST DOCKED DEVICE UNSOLICITED RESULTS Final Result Performing Organization Address City/[facility] Co de Phone Number [facility] [address] [place] [address] * (ABNORMAL) POCT glucose meter (09/19/2025 5:28 PM EDT) [facility] POCT Glucose 314(H) 74 - 99 mg/dL 09/19/2025 5:31 PM EDT [facility] Comment:Accuracy of [...] to the main labortory for testing. Comment 09/19/2025 5:31 PM EDT [facility] Ash Conveyor Operator ID Kacie Carver 5:31 PM EDT [facility] Device ID [id number] 09/19/2025 5:31 PM EDT [facility] Specimen Type POC Capillary 09/19/2025 5:31 PM EDT [facility] Blood Capillary blood specimen / Unknown 09/19/2025 5:28 PM EDT 09/19/2025 5:31 PM EDT us Latonia Dowell MD LAB POINT OF CARE TE ST DOCKED DEVICE UNSOLICITED RESULTS Final Result Performing Organization Address City/[facility]/ZIP Co de Phone Number [facility] [address] [place] [address] * Lavender Top (09/19/2025 3:33 PM EDT) Pathologist [facility] Extra Hold for add-ons 09/19/2025 7:02 PM EDT [facility] Comment:Auto resulted. Blood Venous blood specimen / Unknown 09/19/2025 3:33 PM EDT 09/19/2025 4:19 PM EDT us Latonia Dowell MD LAB BLOOD ORDERABLES Final Resul t [facility] [address] [place] [address] * Vitamin D 1,25 dihydroxy (09/19/2025 3:33 PM EDT) VITAMIN D, 1, 25-DIHYDROXY 38.3 19.9 - 79.3 pg/mL 09/20/2025 6:20 PM EDT [facility] Blood Venous blood specimen / Unknown Venipuncture / Unknown 09/19/2025 3:33 PM EDT 09/19/2025 4:38 PM EDT us Latonia Dowell MD LAB BLOOD ORDERABLES Final Resul t Performing Organization Address [facility]/ZIP Co de Phone Number [facility] [address] [place] [address] * (ABNORMAL) Basic metabolic panel (09/19/2025 3:33 PM EDT) Glucose, Plasma 264(H) 74 - 99 mg/dL 09/19/2025 5:06 PM EDT [facility] BUN, Plasma 44(H) 8 - 23 mg/dL 09/19/2025 5:06 PM EDT [facility] Creatinine, Plasma 1.72(H) 0.60 - 1.10 mg/dL 09/19/2025 5:06 PM EDT [facility] BUN/Creatinine Ratio 26 09/19/2025 5:06 PM EDT [facility] Sodium, Plasma 136 136 - 145 mmol/L 09/19/2025 5:06 PM EDT [facility] Potassium, Plasma 4.2 3.6 - 4.9 mmol/L 09/19/2025 5:06 PM EDT [facility] Chloride, Plasma 99 97 - 107 mmol/L 09/19/2025 5:06 PM EDT [facility] CO2, Plasma 25 22 - 29 mmol/L 09/19/2025 5:06 PM EDT [facility] Anion Gap 12 6 - 16 mmol/L 09/19/2025 5:06 PM EDT [facility] Total Calcium, Plasma 8.8(L) 8.9 - 10.2 mg/dL 09/19/2025 5:06 PM EDT [facility] eGFRcr 33.1 mL/min/1.7 3m*2 09/19/2025 5:06 PM EDT [facility] Comment:Reported eGFRcr in m L/min/1.73m2 is based the CKD-EPI 2020 equation that does not use a race coefficient. Blood Venous blood specimen / Unknown Venipuncture / Unknown 09/19/2025 3:33 PM EDT 09/19/2025 4:39 PM EDT Latonia Dowell MD LAB BLOOD ORDERABLES Final Resul t [facility] [address] [place] [address] * XR Chest 1 View (09/19/2025 11:32 AM EDT) Anatomical Region Laterality Modality Chest Digital Radiogra phy Impressions 09/19/2025 12:45 PM EDT Left basal atelectasis. No pleural effusion. No pneumothorax. CRITICAL RESULT: No. COMMUNICATION: Per this written report. Drafted by Darryn Santana MD on 09/19/2025 12:41 PM Final report signed by Darryn Santana MD on 09/19/2025 12:45 PM Narrative 09/19/2025 12:45 PM EDT CLINICAL INDICATION: Right thoracentesis TECHNIQUE: XR CHEST 1 VIEW COMPARISON: September 10, 2025 FINDINGS: Stable cardiac and mediastinal silhouettes. Lordotic projection. No focal airspace consolidation. No focal airspace consolidation. Left basal linear atelectasis. No large pleural effusion. Procedure Note Darryn Santana MD - 09/19/2025 CLINICAL INDICATION: Right thoracentesis TECHNIQUE: XR CHEST 1 VIEW COMPARISON: September 10, 2025 FINDINGS: Stable cardiac and mediastinal silhouettes. Lordotic projection. No focalairspace consolidation. No focal airspace consolidation. Left basal linearatelectasis. No large pleural effusion. IMPRESSION: Left basal atelectasis. No pleural effusion. No pneumothorax. CRITICAL RESULT: No. COMMUNICATION: Per this written report. Drafted by Darryn Santana MD on 09/19/2025 12:41 PM Final report signed by Darryn Santana MD on 09/19/2025 12:45 PM us Maria Dolores Ontiveros REVIEW RN, DNP IMG XR PROCEDURES Final Result * US Guided Thoracentesis (09/19/2025 10:28 AM EDT) Anatomical Region Laterality Modality Chest Ultrasound Impressions 09/19/2025 4:33 PM EDT - Technically successful US-guided paracentesis. A total of 1.8 liters of clear dark yellow fluid was removed. A sample of the fluid was sent for laboratory analysis. - Technically successful ultrasound guided thoracentesis. A total of 1.4 liters of clear dark yellow fluid was removed. A sample of the fluid was sent for laboratory analysis. - Administered Albumin 37.5 g IV once post procedure. CRITICAL RESULT: No. COMMUNICATION: Per this written report. Preliminary report signed by Maria Dolores Ontiveros APRN on 09/19/2025 11:28 AM By electronically signing this report, I, the attending physician, attest that I was not present for the procedure(s) but agree with the final edited report. Drafted by Maria Dolores Ontiveros APRN on 09/19/2025 11:22 AM Final report signed by Ck Palacios MD on 09/19/2025 4:33 PM Narrative 09/19/2025 4:33 PM EDT CLINICAL INDICATION: Monika Zimmer is a 65 y.o. 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 She was admitted from clinic due to [place]. She was previously scheduled as an outpatient for paracentesis and right thoracentesis today. VIR was consulted to perform both paracentesis and right thoracentesis. TECHNIQUE: Nurse Epidemiologist: Maria Dolores Ontiveros APRN Secondary Ash Conveyor Operator: None. Rad Dose: NA Medications: Continuous physiologic monitoring provided by a qualified healthcare professional. Administered: 1% Lidocaine with Sodium bicarbonate SQ. Antibiotics: NA Time out: 913 Procedure: [...] storage in PACS. A total of 1.8 liters of clear dark yellow fluid was removed. The centesis catheter was removed and occlusive dressing applied. Next, attention was turned to the chest for thoracentesis. Limited chest ultrasound was performed, which showed an anechoic fluid collection in the right pleural space. 1% buffered lidocaine used for local analgesia. Under real-time ultrasound guidance, a 5 Fr skater-centesis catheter was advanced into the pleural fluid. Ultrasound images were sent to permanent storage in PACS. A total of 1.4 liters of clear dark yellow fluid was removed. The needle was removed and occlusive dressing applied. The patient tolerated the procedure well. The patient left the IR suite in stable condition. COMPARISON: None. FINDINGS: Small volume ascites. Moderate right pleural fluid. COMPLICATION: No. Procedure Note Ck Palacios MD - 09/19/2025 CLINICAL INDICATION: Monika Zimmer is a 65 y.o. female with a past medical history of NASHcirrhosis decompensated by ascites, hepatic hydrothorax, hepaticencephalopathy, esophageal varices, diabetes mellitus, anxiety,depression, COPD, CKD, CAD, JONATHAN who has had multiple admissions recently.She was admitted from clinic due to [place]. She was previously scheduled asan outpatient for paracentesis and right thoracentesis today. VIR wasconsulted to perform both paracentesis and right thoracentesis. TECHNIQUE: Nurse Epidemiologist: Maria Dolores Ontiveros APRN Secondary Ash Conveyor Operator: None. Rad Dose: NA Medications: Continuous physiologic monitoring provided by a qualifiedhealthcare professional. Administered: 1% Lidocaine with Sodiumbicarbonate SQ. Antibiotics: NA Time out: 913 Procedure: [...] topermanent storage in PACS. A total of 1.8 liters of clear dark yellowfluid was removed. The centesis catheter was removed and occlusivedressing applied. Next, attention was turned to the chest for thoracentesis. Limited chestultrasound was performed, which showed an anechoic fluid collection in theright pleural space. 1% buffered lidocaine used for local analgesia. Underreal-time ultrasound guidance, a 5 Fr skater-centesis catheter wasadvanced into the pleural fluid. Ultrasound images were sent to permanentstorage in PACS. A total of 1.4 liters of clear dark yellow fluid wasremoved. The needle was removed and occlusive dressing applied. The patient tolerated the procedure well. The patient left the IR suitein stable condition. COMPARISON: None. FINDINGS: Small volume ascites. Moderate right pleural fluid. COMPLICATION: No. IMPRESSION: - Technically successful US-guided paracentesis. A total of 1.8 liters ofclear dark yellow fluid was removed. A sample of the fluid was sent forlaboratory analysis. - Technically successful ultrasound guided thoracentesis. A total of 1.4liters of clear dark yellow fluid was removed. A sample of the fluid wassent for laboratory analysis. - Administered Albumin 37.5 g IV once post procedure. CRITICAL RESULT: No. COMMUNICATION: Per this written report. Preliminary report signed by Maria Dolores Ontiveros APRN on 09/19/2025 11:28 AM By electronically signing this report, I, the attending physician, attestthat I was not present for the procedure(s) but agree with the finaledited report. Drafted by Maria Dolores Ontiveros APRN on 09/19/2025 11:22 AM Final report signed by Ck Palacios MD on 09/19/2025 4:33 PM us Marianna Gordon APRN IMG US PROCEDURES Final Resu lt * US Guided Abdominal Paracentesis (09/19/2025 10:28 AM EDT) Anatomical Region Laterality Modality Abdomen Ultrasound Impressions 09/19/2025 4:33 PM EDT - Technically successful US-guided paracentesis. A total of 1.8 liters of clear dark yellow fluid was removed. A sample of the fluid was sent for laboratory analysis. - Technically successful ultrasound guided thoracentesis. A total of 1.4 liters of clear dark yellow fluid was removed. A sample of the fluid was sent for laboratory analysis. - Administered Albumin 37.5 g IV once post procedure. CRITICAL RESULT: No. COMMUNICATION: Per this written report. Preliminary report signed by Maria Dolores Ontiveros APRN on 09/19/2025 11:28 AM By electronically signing this report, I, the attending physician, attest that I was not present for the procedure(s) but agree with the final edited report. Drafted by Maria Dolores Ontiveros APRN on 09/19/2025 11:22 AM Final report signed by Ck Palacios MD on 09/19/2025 4:33 PM Narrative 09/19/2025 4:33 PM EDT CLINICAL INDICATION: Monika Zimmer is a 65 y.o. 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 She was admitted from clinic due to CARL[place]. She was previously scheduled as an outpatient for paracentesis and right thoracentesis today. VIR was consulted to perform both paracentesis and right thoracentesis. TECHNIQUE: Nurse Epidemiologist: Maria Dolores Ontiveros APRN Secondary Ash Conveyor Operator: None. Rad Dose: NA Medications: Continuous physiologic monitoring provided by a qualified healthcare professional. Administered: 1% Lidocaine with Sodium bicarbonate SQ. Antibiotics: NA Time out: 913 Procedure: [...] storage in PACS. A total of 1.8 liters of clear dark yellow fluid was removed. The centesis catheter was removed and occlusive dressing applied. Next, attention was turned to the chest for thoracentesis. Limited chest ultrasound was performed, which showed an anechoic fluid collection in the right pleural space. 1% buffered lidocaine used for local analgesia. Under real-time ultrasound guidance, a 5 Fr skater-centesis catheter was advanced into the pleural fluid. Ultrasound images were sent to permanent storage in PACS. A total of 1.4 liters of clear dark yellow fluid was removed. The needle was removed and occlusive dressing applied. The patient tolerated the procedure well. The patient left the IR suite in stable condition. COMPARISON: None. FINDINGS: Small volume ascites. Moderate right pleural fluid. COMPLICATION: No. Procedure Note Ck Palacios MD - 09/19/2025 CLINICAL INDICATION: Monika Zimmer is a 65 y.o. female with a past medical history of NASHcirrhosis decompensated by ascites, hepatic hydrothorax, hepaticencephalopathy, esophageal varices, diabetes mellitus, anxiety,depression, COPD, CKD, CAD, JONATHAN who has had multiple admissions recently.She was admitted from clinic due to [place]. She was previously scheduled asan outpatient for paracentesis and right thoracentesis today. VIR wasconsulted to perform both paracentesis and right thoracentesis. TECHNIQUE: Nurse Epidemiologist: Maria Dolores Ontiveros APRN Secondary Ash Conveyor Operator: None. Rad Dose: NA Medications: Continuous physiologic monitoring provided by a qualifiedhealthcare professional. Administered: 1% Lidocaine with Sodiumbicarbonate SQ. Antibiotics: NA Time out: 913 Procedure: [...] topermanent storage in PACS. A total of 1.8 liters of clear dark yellowfluid was removed. The centesis catheter was removed and occlusivedressing applied. Next, attention was turned to the chest for thoracentesis. Limited chestultrasound was performed, which showed an anechoic fluid collection in theright pleural space. 1% buffered lidocaine used for local analgesia. Underreal-time ultrasound guidance, a 5 Fr skater-centesis catheter wasadvanced into the pleural fluid. Ultrasound images were sent to permanentstorage in PACS. A total of 1.4 liters of clear dark yellow fluid wasremoved. The needle was removed and occlusive dressing applied. The patient tolerated the procedure well. The patient left the IR suitein stable condition. COMPARISON: None. FINDINGS: Small volume ascites. Moderate right pleural fluid. COMPLICATION: No. IMPRESSION: - Technically successful US-guided paracentesis. A total of 1.8 liters ofclear dark yellow fluid was removed. A sample of the fluid was sent forlaboratory analysis. - Technically successful ultrasound guided thoracentesis. A total of 1.4liters of clear dark yellow fluid was removed. A sample of the fluid wassent for laboratory analysis. - Administered Albumin 37.5 g IV once post procedure. CRITICAL RESULT: No. COMMUNICATION: Per this written report. Preliminary report signed by Maria Dolores Ontiveros APRN on 09/19/2025 11:28 AM By electronically signing this report, I, the attending physician, attestthat I was not present for the procedure(s) but agree with the finaledited report. Drafted by Maria Dolores Ontiveros APRN on 09/19/2025 11:22 AM Final report signed by Ck Palacios MD on 09/19/2025 4:33 PM us Marianna Gordon APRN IMG US PROCEDURES Final Resu lt * Lactate Dehydrogenase, Pleural Fluid - Right (09/19/2025 10:11 AM EDT) LDH, Fluid 54 U/L 09/19/2025 2:39 PM EDT [facility] Pleural Fluid Structure of right pleural cavity / Unknown Non-blood Collection / Unknown 09/19/2025 10:11 AM EDT 09/19/2025 11:52 AM EDT Narrative [facility] - 09/19/2025 2:39 PM EDT No established reference interval. Results should be interpreted in comparison to the concentration in blood and in conjunction with the clinical context. Pleural fluid LDH and total protein measurements are used for differentiation of exudates and transudates. Light's criteria can be used to identify most pleural exudative effusions if one or more of the following criteria are present: (1) pleural uemgn-vm-fouel protein ratio of >0.5, (2) pleural xcmny-da-ygfkm LDH ratio of >0.6, or (3) a pleural fluid LDH activity that is >2/3 the upper limit of a normal serum LDH activity. Light's criteria may misclassify ~25% of transudates as exudates in heart failure. These can be identified by calculating a raorp-kj-nqvzish albumin gradient (>1.2 g/dL) and/or a unkvx-hw-ycyso protein gradient (>3.1 g/dL). Latonia Dowell MD LAB BODY FLUIDS AND STOOLS ORDER FAMILIA Final Result [facility] [address] [place] [address] * Total Protein, Pleural Fluid - Pleural Right (09/19/2025 10:11 AM EDT) Total Protein, Fluid 1.3 g/dL 09/19/2025 2:39 PM EDT [facility] Pleural Fluid Structure of right pleural cavity / Unknown Non-blood Collection / Unknown 09/19/2025 10:11 AM EDT 09/19/2025 11:52 AM EDT Narrative [facility] - 09/19/2025 2:39 PM EDT This test was developed and its performance characteristics determined by [facility]. The U.S. Food and Drug Administration has not approved or cleared this test. However, FDA clearance or approval is not currently required for clinical use. The results are not intended to be used as the sole means for clinical diagnosis or patient management decisions. Latonia Dowell MD LAB BODY FLUIDS AND STOOLS ORDER FAMILIA Final Result Performing Organization Address [facility] Co de Phone Number [facility] [address] [place] [address] * Body Fluid Culture and Gram Stain - Pleural Right (09/19/2025 10:11 AM EDT) Culture No growth at day 4 2024 7:02 AM EST [facility] Gram Stain Result No organisms seen 09/22/2025 7:02 AM EST [facility] Gram Stain Result No polymorphonuclear leukocytes seen 09/22/2025 7:02 AM EST [facility] Pleural Fluid Specimen from pleura obtained by thoracentesis / Unknown Non-blood Collection / Unknown 09/19/2025 10:11 AM EDT 09/19/2025 12:10 PM EDT Latonia Dowell MD LAB MICROBIOLOGY - GENERAL ORDER FAMILIA Final Result Performing Organization Address [facility] de Phone Number [facility] [address] [place] [address] * Body fluid, cytospin, pathologist interpretation (09/19/2025 10:10 AM EDT) Specimen Type Body Fluid LAB HEMATOLOGY METHOD 09/20/2025 3:47 PM EDT [facility] Specimen Source, Body Fluid Pleural, Right LAB HEMATOLOGY METHOD 09/20/2025 3:47 PM EDT [facility] Clinical Diagnosis, Body Fluid Cirrhosis, ascites, right pleural effusion LAB HEMATOLOGY METHOD 09/20/2025 3:47 PM EDT [facility] Interpretation , Body Fluid No evidence of malignancy Lymphocytosis Light blood A resident was involved in the service. I attest I examined the relevant preparations for the specimens and confirmed the diagnosis or interpretation. 09/20/2025 3:47 PM EDT [facility] Pathologist Signature, Body Fluid 09/20/2025 3:47 PM EDT [facility] Comment:Reviewed by: Kadie dobbs MD LAB CP ASR DISCLAIMER Yes 09/20/2025 3:47 PM EDT [facility] Body Fluid Structure of right pleural cavity / Unknown Non-blood Collection / Unknown 09/19/2025 10:10 AM EDT 09/19/2025 11:52 AM EDT us Latonia Dowell MD LAB BODY FLUIDS AND STOOLS ORDER FAMILIA Final Result [facility] [address] [place] [address] * (ABNORMAL) Body Fluid Cell Count w/ Diff - Pleural Right (09/19/2025 10:10 AM EDT) Color, Body fluid [place] LAB HEMATOLOGY METHOD 09/19/2025 5:13 PM EDT [facility] Appearance, Body fluid Cloudy(A) LAB HEMATOLOGY METHOD 09/19/2025 5:13 PM EDT [facility] Volume, Body fluid 8.0 cc LAB HEMATOLOGY METHOD 09/19/2025 5:13 PM EDT [facility] Fluid Container Tube 1 LAB HEMATOLOGY METHOD 09/19/2025 5:13 PM EDT [facility] Red Blood Cell Count, Body fluid 8,000 uL LAB HEMATOLOGY METHOD 09/19/2025 5:13 PM EDT [facility] Total Nucleated Cell Count, Body fluid 133 uL LAB HEMATOLOGY METHOD 09/19/2025 5:13 PM EDT [facility] Neutrophils %, Body fluid 2 % LAB HEMATOLOGY METHOD 09/19/2025 5:13 PM EDT [facility] Lymphocytes %, Body fluid 91 % LAB HEMATOLOGY METHOD 09/19/2025 5:13 PM EDT [facility] Monocytes/Macro phages %, Body fluid 6 % LAB HEMATOLOGY METHOD 09/19/2025 5:13 PM EDT [facility] Eosinophils %, Body fluid 0 % LAB HEMATOLOGY METHOD 09/19/2025 5:13 PM EDT [facility] Lining/Mesothel ial Cells %, Body fluid 1 % LAB HEMATOLOGY METHOD 09/19/2025 5:13 PM EDT [facility] Neutrophils Absolute (PMN), Body fluid 3 uL LAB HEMATOLOGY METHOD 09/19/2025 5:13 PM EDT [facility] Lymphocytes Absolute, Body fluid 121 uL LAB HEMATOLOGY METHOD 09/19/2025 5:13 PM EDT [facility] Monocytes/Macro phages Absolute, Body fluid 8 uL LAB HEMATOLOGY METHOD 09/19/2025 5:13 PM EDT [facility] Eosinophils Absolute, Body fluid 0 uL LAB HEMATOLOGY METHOD 09/19/2025 5:13 PM EDT [facility] Basophils Absolute, Body fluid 0 uL LAB HEMATOLOGY METHOD 09/19/2025 5:13 PM EDT [facility] Lining/Mesothel ial Cells Absolute, Body fluid 1 uL LAB HEMATOLOGY METHOD 09/19/2025 5:13 PM EDT [facility] Basophils %, Body fluid 0 % LAB HEMATOLOGY METHOD 09/19/2025 5:13 PM EDT [facility] Body Fluid Structure of right pleural cavity / Unknown Non-blood Collection / Unknown 09/19/2025 10:10 AM EDT 09/19/2025 11:52 AM EDT Latonia Dowell MD LAB BODY FLUIDS AND STOOLS ORDERABLES NO SPECIMEN TYPE/SOURCE Final Result [facility] [address] [place] [address] * Body fluid, cytospin, pathologist interpretation (09/19/2025 9:18 AM EDT) Specimen Type Body Fluid LAB HEMATOLOGY METHOD 09/20/2025 3:54 PM EDT [facility] Specimen Source, Body Fluid Peritoneal Fluid LAB HEMATOLOGY METHOD 09/20/2025 3:54 PM EDT [facility] Clinical Diagnosis, Body Fluid Ascites LAB HEMATOLOGY METHOD 09/20/2025 3:54 PM EDT [facility] Interpretatio n, Body Fluid No evidence of malignancyChronic inflammatory cells Lymphocytosis with reactive forms Light blood A resident was involved in the service. I attest I examined the relevant preparations for the specimens and confirmed the diagnosis or interpretation. 09/20/2025 3:54 PM EDT [facility] Pathologist Signature, Body Fluid 09/20/2025 3:54 PM EDT [facility] Comment:Reviewed by: Kadie dobbs MD LAB CP ASR DISCLAIMER Yes 09/20/2025 3:54 PM EDT [facility] Body Fluid Peritoneal fluid / Unknown Non-blood Collection / Unknown 09/19/2025 9:18 AM EDT 09/19/2025 10:12 AM EDT us Latonia Dowell MD LAB BODY FLUIDS AND STOOLS ORDER FAMILIA Final Result [facility] [address] [place] [address] * Protein - Ascites (09/19/2025 9:18 AM EDT) Total Protein, Fluid 0.8 g/dL 09/19/2025 2:40 PM EDT [facility] Peritoneal Fluid Peritoneal cavity structure / Unknown Non-blood Collection / Unknown 09/19/2025 9:18 AM EDT 09/19/2025 10:12 AM EDT Narrative [facility] - 09/19/2025 2:40 PM EDT This test was developed and its performance characteristics determined by [facility]. The U.S. Food and Drug Administration has not approved or cleared this test. However, FDA clearance or approval is not currently required for clinical use. The results are not intended to be used as the sole means for clinical diagnosis or patient management decisions. us Latonia Dowell MD LAB BODY FLUIDS AND STOOLS ORDER FAMILIA Final Result [facility] [address] [place] [address] * LDH - Ascites (09/19/2025 9:18 AM EDT) LDH, Fluid 40 U/L 09/19/2025 2:40 PM EDT [facility] Peritoneal Fluid Peritoneal cavity structure / Unknown Non-blood Collection / Unknown 09/19/2025 9:18 AM EDT 09/19/2025 10:12 AM EDT Narrative [facility] - 09/19/2025 2:40 PM EDT No established reference interval. Results [...] for plasma; 3) Glucose < 50 mg/dL. Latonia Dowell MD LAB BODY FLUIDS AND STOOLS ORDER FAMILIA Final Result Performing Organization Address [facility] Co de Phone Number [facility] [address] [place] [address] * Glucose - Ascites (09/19/2025 9:18 AM EDT) Glucose, Fluid 120 mg/dL 09/19/2025 2:40 PM EDT [facility] Peritoneal Fluid Peritoneal cavity structure / Unknown Non-blood Collection / Unknown 09/19/2025 9:18 AM EDT 09/19/2025 10:12 AM EDT Narrative [facility] - 09/19/2025 2:40 PM EDT Peritoneal/Ascites No established reference interval. [...] for plasma; 3) Glucose < 50 mg/dL. Latonia Dowell MD LAB BODY FLUIDS AND STOOLS ORDER FAMILIA Final Result Performing Organization Address City/[facility] Co de Phone Number [facility] [address] [place] [address] * Albumin - Ascites (09/19/2025 9:18 AM EDT) Albumin, Peritoneal Fluid 0.5 g/dL 09/19/2025 2:40 PM EDT [facility] Peritoneal Fluid Peritoneal cavity structure / Unknown Non-blood Collection / Unknown 09/19/2025 9:18 AM EDT 09/19/2025 10:12 AM EDT Narrative [facility] - 09/19/2025 2:40 PM EDT REPORTING RESULTS Reference Values: No established reference interval. Results should be interpreted in comparison to the concentration in blood and in conjunction with the clinical context. This test was developed and its performance characteristics determined by [facility]. The U.S. Food and Drug Administration has not approved or cleared this test; however, FDA clearance or approval is not currently required for clinical use. The results are not intended to be used as the sole means for clinical diagnosis or patient management decisions. Latonia Dowell MD LAB BODY FLUIDS AND STOOLS ORDER FAMILIA Final Result Performing Organization Address City/[facility]/ZIP Co de Phone Number [facility] [address] [place] [address] * Body Fluid Culture and Gram Stain (09/19/2025 9:18 AM EDT) Culture No growth at day 4 2024 7:02 AM EST [facility] Gram Stain Result Rare Polymorphonuclear leukocytes 09/22/2025 7:02 AM EST [facility] Gram Stain Result No organisms seen 09/22/2025 7:02 AM EST [facility] Peritoneal Fluid Peritoneal cavity structure / Unknown Non-blood Collection / Unknown 09/19/2025 9:18 AM EDT 09/19/2025 10:12 AM EDT Latonia Dowell MD LAB MICROBIOLOGY - GENERAL ORDER FAMILIA Final Result Performing Organization Address City/[facility]/ZIP Co de Phone Number [facility] [address] [place] [address] * (ABNORMAL) Body Fluid Cell Count With Diff - Ascites (09/19/2025 9:18 AM EDT) Color, Body fluid [place] LAB HEMATOLOGY METHOD 09/19/2025 7:54 PM EDT [facility] Appearance, Body fluid Cloudy(A) LAB HEMATOLOGY METHOD 09/19/2025 7:54 PM EDT [facility] Volume, Body fluid 25.0 cc LAB HEMATOLOGY METHOD 09/19/2025 7:54 PM EDT [facility] Fluid Container Specimen received in miscellaneous container LAB HEMATOLOGY METHOD 09/19/2025 7:54 PM EDT [facility] Red Blood Cell Count, Body fluid 5,000 uL LAB HEMATOLOGY METHOD 09/19/2025 7:54 PM EDT [facility] Total Nucleated Cell Count, Body fluid 99 uL LAB HEMATOLOGY METHOD 09/19/2025 7:54 PM EDT [facility] Neutrophils %, Body fluid 1 % LAB HEMATOLOGY METHOD 09/19/2025 7:54 PM EDT [facility] Lymphocytes %, Body fluid 80 % LAB HEMATOLOGY METHOD 09/19/2025 7:54 PM EDT [facility] Monocytes/Macr ophages %, Body fluid 16 % LAB HEMATOLOGY METHOD 09/19/2025 7:54 PM EDT [facility] Eosinophils %, Body fluid 0 % LAB HEMATOLOGY METHOD 09/19/2025 7:54 PM EDT [facility] Lining/Mesothe lial Cells %, Body fluid 3 % LAB HEMATOLOGY METHOD 09/19/2025 7:54 PM EDT [facility] Neutrophils Absolute (PMN), Body fluid 1 uL LAB HEMATOLOGY METHOD 09/19/2025 7:54 PM EDT [facility] Lymphocytes Absolute, Body fluid 79 uL LAB HEMATOLOGY METHOD 09/19/2025 7:54 PM EDT [facility] Monocytes/Macr ophages Absolute, Body fluid 16 uL LAB HEMATOLOGY METHOD 09/19/2025 7:54 PM EDT [facility] Eosinophils Absolute, Body fluid 0 uL LAB HEMATOLOGY METHOD 09/19/2025 7:54 PM EDT [facility] Basophils Absolute, Body fluid 0 uL LAB HEMATOLOGY METHOD 09/19/2025 7:54 PM EDT [facility] Lining/Mesothe lial Cells Absolute, Body fluid 3 uL LAB HEMATOLOGY METHOD 09/19/2025 7:54 PM EDT [facility] Basophils %, Body fluid 0 % LAB HEMATOLOGY METHOD 09/19/2025 7:54 PM EDT [facility] Body Fluid Peritoneal fluid / Unknown Non-blood Collection / Unknown 09/19/2025 9:18 AM EDT 09/19/2025 10:12 AM EDT Latonia Dowell MD LAB BODY FLUIDS AND STOOLS ORDERABLES NO SPECIMEN TYPE/SOURCE Final Result Performing Organization Address City/[facility]/ZIP Co de Phone Number [facility] [address] [place] [address] * (ABNORMAL) POCT glucose meter (09/19/2025 7:34 AM EDT) POCT Glucose 126(H) 74 - 99 mg/dL 09/19/2025 7:43 AM EDT [facility] Comment:Accuracy of [...] to the main labortory for testing. Comment 09/19/2025 7:43 AM EDT [facility] Ash Conveyor Operator ID Kacie Carver 7:43 AM EDT [facility] Device ID [id number] 09/19/2025 7:43 AM EDT [facility] Specimen Type POC Capillary 09/19/2025 7:43 AM EDT [facility] Blood Capillary blood specimen / Unknown 09/19/2025 7:34 AM EDT 09/19/2025 7:43 AM EDT Latonia Dowell MD LAB POINT OF CARE TE ST DOCKED DEVICE UNSOLICITED RESULTS Final Result Performing Organization Address City/[facility]/ZIP Co de Phone Number [facility] [address] [place] [address] * (ABNORMAL) POCT glucose meter (09/18/2025 8:19 PM EDT) POCT Glucose 165(H) 74 - 99 mg/dL 09/18/2025 8:22 PM EDT [facility] Comment:Accuracy of [...] to the main labortory for testing. Comment 09/18/2025 8:22 PM EDT [facility] Ash Conveyor Operator ID Shelbie Ivey 09/18/20 8:22 PM EDT [facility] Device ID [id number] 09/18/2025 8:22 PM EDT [facility] Specimen Type POC Capillary 09/18/2025 8:22 PM EDT [facility] Blood Capillary blood specimen / Unknown 09/18/2025 8:19 PM EDT 09/18/2025 8:22 PM EDT us Latonia Dowell MD LAB POINT OF CARE TE ST DOCKED DEVICE UNSOLICITED RESULTS Final Result Performing Organization Address City/State/[facility] Co de Phone Number [facility] [address] [place] [address] * (ABNORMAL) POCT glucose meter (09/18/2025 5:02 PM EDT) [facility] POCT Glucose 187(H) 74 - 99 mg/dL 09/18/2025 5:04 PM EDT [facility] Comment:Accuracy of [...] to the main labortory for testing. Comment 09/18/2025 5:04 PM EDT [facility] Ash Conveyor Operator ID Cyndie Rusthumiranda 09/18/2025 5:04 PM EDT [facility] Device ID [id number] 09/18/2025 5:04 PM EDT [facility] Specimen Type POC Capillary 09/18/2025 5:04 PM EDT [facility] Blood Capillary blood specimen / Unknown 09/18/2025 5:02 PM EDT 09/18/2025 5:04 PM EDT us Latonia Dowell MD LAB POINT OF CARE TE ST DOCKED DEVICE UNSOLICITED RESULTS Final Result Performing Organization Address [facility] Co de Phone Number [facility] [address] [place] [address] * (ABNORMAL) POCT glucose meter (09/18/2025 11:23 AM EDT) Pathologist [facility] POCT Glucose 228(H) 74 - 99 mg/dL 09/18/2025 11:24 AM EDT [facility] Comment:Accuracy of [...] to the main labortory for testing. Comment 09/18/2025 11:24 AM EDT [facility] Ash Conveyor Operator ID AndreiBrock [email or web address] 11:24 AM EDT [facility] Device ID [id number] 09/18/2025 11:24 AM EDT [facility] Specimen Type POC Capillary 09/18/2025 11:24 AM EDT [facility] Blood Capillary blood specimen / Unknown 09/18/2025 11:23 AM EDT 09/18/2025 11:24 AM EDT Latonia Dowell MD LAB POINT OF CARE TE ST DOCKED DEVICE UNSOLICITED RESULTS Final Result Performing Organization Address [facility] de Phone Number [facility] [address] [place] [address] * (ABNORMAL) POCT glucose meter (09/18/2025 8:23 AM EDT) Pathologist [facility] POCT Glucose 128(H) 74 - 99 mg/dL 09/18/2025 8:24 AM EDT [facility] Comment:Accuracy of [...] to the main labortory for testing. Comment 09/18/2025 8:24 AM EDT [facility] Ash Conveyor Operator ID Jessica Haynes 8:24 AM EDT [facility] Device ID [id number] 09/18/2025 8:24 AM EDT [facility] Specimen Type POC Capillary 09/18/2025 8:24 AM EDT [facility] Blood Capillary blood specimen / Unknown 09/18/2025 8:23 AM EDT 09/18/2025 8:24 AM EDT us Latonia Dowell MD LAB POINT OF CARE TE ST DOCKED DEVICE UNSOLICITED RESULTS Final Result [facility] [address] [place] [id number] * (ABNORMAL) Basic metabolic panel (09/18/2025 7:49 AM EDT) Glucose, Plasma 85 74 - 99 mg/dL 09/18/2025 8:23 AM EDT [facility] BUN, Plasma 42(H) 8 - 23 mg/dL 09/18/2025 8:23 AM EDT [facility] Creatinine, Plasma 1.82(H) 0.60 - 1.10 mg/dL 09/18/2025 8:23 AM EDT [facility] BUN/Creatinine Ratio 23 09/18/2025 8:23 AM EDT [facility] Sodium, Plasma 137 136 - 145 mmol/L 09/18/2025 8:23 AM EDT [facility] Potassium, Plasma 4.0 3.6 - 4.9 mmol/L 09/18/2025 8:23 AM EDT [facility] Chloride, Plasma 104 97 - 107 mmol/L 09/18/2025 8:23 AM EDT [facility] CO2, Plasma 25 22 - 29 mmol/L 09/18/2025 8:23 AM EDT [facility] Anion Gap 8 6 - 16 mmol/L 09/18/2025 8:23 AM EDT [facility] Total Calcium, Plasma 8.6(L) 8.9 - 10.2 mg/dL 09/18/2025 8:23 AM EDT [facility] eGFRcr 30.9 mL/min/1.7 3m*2 09/18/2025 8:23 AM EDT [facility] Comment:Reported eGFRcr in m L/min/1.73m2 is based the CKD-EPI 2020 equation that does not use a race coefficient. Blood Venous blood specimen / Unknown Venipuncture / Unknown 09/18/2025 7:49 AM EDT 09/18/2025 7:53 AM EDT Latonia Dowell MD LAB BLOOD ORDERABLES Final Resul t Performing Organization Address City/[facility] Co de Phone Number [facility] [address] [place] [address] * POCT glucose meter (09/18/2025 7:46 AM EDT) POCT Glucose 85 74 - 99 mg/dL 09/18/2025 7:48 AM EDT [facility] Comment:Accuracy of a glucos e result obtained from a capillary whole blood specimen relies upon adequate, non-compromised capillary blood flow. If the capillary glucose result is not consistent with the patient's clinical signs and symptoms, glucose testing should be repeated with either an arterial or venous sample on the glucometer or sent to the main labortory for testing. Comment 09/18/2025 7:48 AM EDT [facility] Ash Conveyor Operator ID Jadiel Orourke 025 7:48 AM EDT [facility] Device ID [id number] 09/18/2025 7:48 AM EDT [facility] Specimen Type POC Capillary 09/18/2025 7:48 AM EDT [facility] Blood Capillary blood specimen / Unknown 09/18/2025 7:46 AM EDT 09/18/2025 7:48 AM EDT us Latonia Dowell MD LAB POINT OF CARE TE ST DOCKED DEVICE UNSOLICITED RESULTS Final Result Performing Organization Address City/[facility] Co de Phone Number [facility] [address] [place] [address] * Urinalysis Microscopic Examination (09/17/2025 10:22 PM EDT) Urine Urine specimen obtained by clean catch procedure / Unknown Non-blood Collection / Unknown 09/17/2025 10:22 PM EDT 09/17/2025 10:26 PM EDT Latonia Dowell MD LAB URINE ORDERABLES Final Resul t Performing Organization Address City/[facility]/ZIP Co de Phone Number [facility] [address] [place] [address] * Urine Subramanian Panel (09/17/2025 10:22 PM EDT) Extra Reflex urine culture not indicated 09/18/2025 1:03 AM EDT [facility] Comment:Previously prelim ve rified as Specimen evaluation in progress on 09/18/2025 at 0002 EDT. Urine Urine specimen obtained by clean catch procedure / Unknown Non-blood Collection / Unknown 09/17/2025 10:22 PM EDT 09/17/2025 10:26 PM EDT Latonia Dowell MD LAB URINE ORDERABLES Final Resul t Performing Organization Address City/[facility]/ZIP Co de Phone Number [facility] [address] [place] [address] * (ABNORMAL) Urinalysis with reflex microscopic (Culture NOT Included) (09/17/2025 10:22 PM EDT) Color, Urine Yellow LAB URINALYSIS - AUTOMATED METHOD 09/18/2025 12:11 AM EDT [facility] Clarity, Urine Clear LAB URINALYSIS - AUTOMATED METHOD 09/18/2025 12:11 AM EDT [facility] Spec Angie, Urine 1.020 1.005 - 1.030 LAB URINALYSIS - AUTOMATED METHOD 09/18/2025 12:11 AM EDT [facility] pH, Urine 6.0 5.0 - 8.0 LAB URINALYSIS - AUTOMATED METHOD 09/18/2025 12:11 AM EDT [facility] Protein, Urine Negative Negative mg/dL LAB URINALYSIS - AUTOMATED METHOD 09/18/2025 12:11 AM EDT [facility] Glucose, Urine Negative Negative mg/dL LAB URINALYSIS - AUTOMATED METHOD 09/18/2025 12:11 AM EDT [facility] Ketones, Urine Trace(A) Negative mg/dL LAB URINALYSIS - AUTOMATED METHOD 09/18/2025 12:11 AM EDT [facility] Blood, Urine Negative Negative LAB URINALYSIS - AUTOMATED METHOD 09/18/2025 12:11 AM EDT [facility] Bilirubin, Urine Negative Negative LAB URINALYSIS - AUTOMATED METHOD 09/18/2025 12:11 AM EDT [facility] Urobilinogen, Urine 0.2 0.2 to 1.0 mg/dL LAB URINALYSIS - AUTOMATED METHOD 09/18/2025 12:11 AM EDT [facility] Leukocytes, Urine Trace(A) Negative LAB URINALYSIS - AUTOMATED METHOD 09/18/2025 12:11 AM EDT [facility] Nitrite, Urine Negative Negative LAB URINALYSIS - AUTOMATED METHOD 09/18/2025 12:11 AM EDT [facility] RBC, Urine 3 0 to 3 /HPF LAB URINALYSIS - AUTOMATED METHOD 09/18/2025 12:11 AM EDT [facility] Comment:This result was prev iously suppressed from the chart. WBC, Urine 6 - 10(A) 0 to 5 /HPF LAB URINALYSIS - AUTOMATED METHOD 09/18/2025 12:11 AM EDT [facility] Comment:This result was prev iously suppressed from the chart. Squamous Epithelial Cells 6 - 10(A) 0 to 5 /HPF LAB URINALYSIS - AUTOMATED METHOD 09/18/2025 12:11 AM EDT [facility] Comment:This result was prev iously suppressed from the chart. Hyaline Casts >20(A) 0 to 5 /LPF LAB URINALYSIS - AUTOMATED METHOD 09/18/2025 12:11 AM EDT [facility] Comment:This result was prev iously suppressed from the chart. Bacteria, Urine Present Negative LAB URINALYSIS - AUTOMATED METHOD 09/18/2025 12:11 AM EDT [facility] Comment:This result was prev iously suppressed from the chart. Renal Tubular Cells Present Absent 09/18/2025 12:11 AM EDT [facility] Comment:This result was prev iously suppressed from the chart. Transitional Epithelial Cells Present Absent 09/18/2025 12:11 AM EDT [facility] Comment:This result was prev iously suppressed from the chart. Urine Urine specimen obtained by clean catch procedure / Unknown Non-blood Collection / Unknown 09/17/2025 10:22 PM EDT 09/17/2025 10:26 PM EDT Narrative [facility] - 09/18/2025 12:11 AM EDT Performed by manual method us Latonia Dowell MD LAB URINE ORDERABLES Final Resul t [facility] [address] [place] [address] * (ABNORMAL) POCT glucose meter (09/17/2025 8:11 PM EDT) Pathologist [facility] POCT Glucose 179(H) 74 - 99 mg/dL 09/17/2025 8:13 PM EDT [facility] Comment:Accuracy of a glucos e result obtained from a capillary whole blood specimen relies upon adequate, non-compromised capillary blood flow. If the capillary glucose result is not consistent with the patient's clinical signs and symptoms, glucose testing should be repeated with either an arterial or venous sample on the glucometer or sent to the main labortory for testing. Comment 09/17/2025 8:13 PM EDT [facility] Ash Conveyor Operator ID Zabrina John 09/17/2025 8:13 PM EDT [facility] Device ID [id number] 09/17/2025 8:13 PM EDT [facility] Specimen Type POC Capillary 09/17/2025 8:13 PM EDT [facility] Blood Capillary blood specimen / Unknown 09/17/2025 8:11 PM EDT 09/17/2025 8:13 PM EDT us Latonia Dowell MD LAB POINT OF CARE TE ST DOCKED DEVICE UNSOLICITED RESULTS Final Result [facility] [address] [place] [address] * Lavender Top (09/17/2025 6:36 PM EDT) Extra Hold for add-ons 09/17/2025 9:01 PM EDT [facility] Comment:Auto resulted. Blood Venous blood specimen / Unknown 09/17/2025 6:36 PM EDT 09/17/2025 6:51 PM EDT us Latonia Dowell MD LAB BLOOD ORDERABLES Final Resul t [facility] [address] [place] [address] * (ABNORMAL) Basic metabolic panel (09/17/2025 6:13 PM EDT) Glucose, Plasma 142(H) 74 - 99 mg/dL 09/17/2025 7:00 PM EDT [facility] BUN, Plasma 41(H) 8 - 23 mg/dL 09/17/2025 7:00 PM EDT [facility] Creatinine, Plasma 1.77(H) 0.60 - 1.10 mg/dL 09/17/2025 7:00 PM EDT [facility] BUN/Creatinine Ratio 23 09/17/2025 7:00 PM EDT [facility] Sodium, Plasma 136 136 - 145 mmol/L 09/17/2025 7:00 PM EDT [facility] Potassium, Plasma 3.1(L) 3.6 - 4.9 mmol/L 09/17/2025 7:00 PM EDT [facility] Chloride, Plasma 100 97 - 107 mmol/L 09/17/2025 7:00 PM EDT [facility] CO2, Plasma 25 22 - 29 mmol/L 09/17/2025 7:00 PM EDT [facility] Anion Gap 11 6 - 16 mmol/L 09/17/2025 7:00 PM EDT [facility] Total Calcium, Plasma 8.9 8.9 - 10.2 mg/dL 09/17/2025 7:00 PM EDT [facility] eGFRcr 32.0 mL/min/1.7 3m*2 09/17/2025 7:00 PM EDT [facility] Comment:Reported eGFRcr in m L/min/1.73m2 is based the CKD-EPI 2020 equation that does not use a race coefficient. Blood Venous blood specimen / Unknown Venipuncture / Unknown 09/17/2025 6:13 PM EDT 09/17/2025 6:31 PM EDT Result [facility] Latonia Dowell MD LAB BLOOD ORDERABLES Final Resul t Performing Organization Address [facility] de Phone Number [facility] [address] [place] [address] * Multi Drug Resistance Test (09/17/2025 6:12 PM EDT) Pathologist [facility] Culture No growth at day 1 09/18/2025 9:15 PM EDT [facility] Swab (Nares and Iona Rectal) Non-blood Collection / Unknown 09/17/2025 6:12 PM EDT 09/17/2025 6:59 PM EDT Narrative [facility] - 09/18/2025 9:15 PM EDT This test was developed and its performance characteristics determined by the [facility]. Although the media is FDA-approved, it is not FDA-approved for all specimen types submitted. The FDA has determined that such clearance or approval is not necessary. This test is used for surveillance purposes. It should not be regarded as investigational or for research. The [facility] is certified under the Clinical Laboratory Improvement Amendments of 1988 (CLIA-88) as qualified to perform high complexity clinical laboratory testing. Latonia Dowell MD LAB MICROBIOLOGY - GENERAL ORDER FAMILIA Final Result Performing Organization Address [facility] [place] [address] * (ABNORMAL) POCT glucose meter (09/17/2025 5:34 PM EDT) Pathologist [facility] POCT Glucose 137(H) 74 - 99 mg/dL 09/17/2025 5:37 PM EDT [facility] Comment:Accuracy of a glucos e result obtained from a capillary whole blood specimen relies upon adequate, non-compromised capillary blood flow. If the capillary glucose result is not consistent with the patient's clinical signs and symptoms, glucose testing should be repeated with either an arterial or venous sample on the glucometer or sent to the main labortory for testing. Comment 09/17/2025 5:37 PM EDT [facility] Ash Conveyor Operator ID Natalie Mi V 025 5:37 PM EDT [facility] Device ID [id number] 09/17/2025 5:37 PM EDT [facility] Specimen Type POC Capillary 09/17/2025 5:37 PM EDT [facility] Blood Capillary blood specimen / Unknown 09/17/2025 5:34 PM EDT 09/17/2025 5:37 PM EDT us Latonia Dowell MD LAB POINT OF CARE TE ST DOCKED DEVICE UNSOLICITED RESULTS Final Result Performing Organization Address City/[facility]/ZIP Co de Phone Number [facility] [address] [place] [address] * N-Terminal Probnp (09/17/2025 9:44 AM EDT) N-Terminal, PROBNP, Plasma 511 0 - 899 pg/mL 09/17/2025 5:28 PM EDT [facility] Blood Venous blood specimen / Unknown Venipuncture / Unknown 09/17/2025 9:44 AM EDT 09/17/2025 10:14 AM EDT us Preeti Magaña DO LAB BLOOD ORDERABLES Final Re sult [facility] [address] [place] [address] documented in this encounter Visit Diagnoses Diagnosis Acute kidney injury- Primary Alcoholic cirrhosis of liver with ascites Other ascites Acute cystitis without hematuria UTI (urinary tract infection) Urinary tract infection, site not specified documented in this encounter Admitting Diagnoses Diagnosis Acute kidney injury documented in this encounter Administered Medications Inactive Administered Medications - up to 3 most recent administrations Medication Order MAR Action Action Date Dose Rate Site acetaminophen (Tylenol) tablet 500 mg 500 mg, Oral, Every 6 hours PRN, Starting on Tue09/18/25 at 1515, Until Tue09/23/25 at 1231, Routine, Mild Plus Pain with CPOT DVPRS FLACC PAINAD NPASS NRS Tran-Betancur Faces score of 1 or greater OR NIPS score 2 or greater, Moderate Severe Pain with CPOT score of 3 or greater OR FLACC PAINAD NPASS NRS Tran-Betancur Faces score of 4 or greater OR DVPRS NIPS score of 5 or greater Given 09/22/2025 8:54 AM EST 500 mg Given 09/21/2025 2:39 PM EDT 500 mg Given 09/21/2025 8:25 AM EDT 500 mg albumin human 25 % infusion 37.5 g 37.5 g, Intravenous, Once as needed, 1 dose, Starting on Tue09/19/25 at 0845, Until Tue09/19/25 at 0926, Routine, For 5-6.9 L drained New Bag 09/19/2025 9:26 AM EDT 37.5 g bumetanide (Bumex) tablet 0.5 mg 0.5 mg, Oral, 3 times weekly (Once per day on Tuesday), First dose on Tue09/18/25 at 0900, Until Discontinued, Routine Given 09/23/2025 8:15 AM EST 0.5 mg Given 09/20/2025 8:18 AM EDT 0.5 mg Given 09/18/2025 8:16 AM EDT 0.5 mg calcitriol (Rocaltrol) capsule 0.25 mcg 0.25 mcg, Oral, Daily, First dose on Tue09/17/25 at 1815, Until Discontinued, Routine Given 09/23/2025 8:15 AM EST 0.25 mcg Given 09/22/2025 8:44 AM EST 0.25 mcg Given 09/21/2025 8:10 AM EDT 0.25 mcg calcium carbonate (Tums) chewable tablet 750 mg 750 mg, Oral, Daily, First dose on Tue09/17/25 at 1815, Until Discontinued Given 09/23/2025 8:15 AM EST 750 mg Given 09/22/2025 8:44 AM EST 750 mg Given 09/21/2025 8:09 AM EDT 750 mg carboxymethylcellulose PF (Refresh Plus) 0.5 % ophthalmic solution 1 drop 1 drop, Both Eyes, As needed, Starting on Tue09/17/25 at 1712, Until Tue09/23/25 at 1231, Routine, dry eyes Given 09/18/2025 9:41 PM EDT 1 drop Given 09/17/2025 8:23 PM EDT 1 drop cefTRIAXone (Rocephin) 2 g in sodium chloride 0.9% 100 mL IVPB (vial adapter required) 2 g, Intravenous, Every 24 hours, 7 doses, First dose on Tue09/18/25 at 1500, Last dose on Tue09/24/25 at 1500, Routine New Bag 09/19/2025 3:16 PM EDT 2 g 220 mL/hr New Bag 09/18/2025 3:42 PM EDT 2 g 220 mL/hr cetirizine (ZyrTEC) tablet 10 mg 10 mg, Oral, Daily, First dose on Tue09/17/25 at 1815, Until Discontinued, Routine Given 09/23/2025 8:15 AM EST 10 mg Given 09/22/2025 8:44 AM EST 10 mg Given 09/21/2025 8:10 AM EDT 10 mg cholecalciferol (Vitamin D-3) tablet 1,000 Units 1,000 Units, Oral, Daily, First dose on Tue09/17/25 at 1815, Until Discontinued, Routine Given 09/23/2025 8:15 AM EST 1,000 Units Given 09/22/2025 8:44 AM EST 1,000 Units Given 09/21/2025 8:10 AM EDT 1,000 Units ciprofloxacin (Cipro) tablet 500 mg 500 mg, Oral, Daily, First dose on Tue09/17/25 at 1815, Until Discontinued, Routine Given 09/18/2025 8:1 6 AM EDT 500 mg Given 09/17/2025 6:06 PM EDT 500 mg ciprofloxacin (Cipro) tablet 500 mg 500 mg, Oral, 2 times daily, 10 doses, First dose (after last reorder) on Tue09/20/25 at 1045, Last dose on Tue09/24/25 at 2100, Routine Given 09/23/2025 8:15 AM EST 500 mg Given 09/22/2025 8:55 PM EST 500 mg Given 09/22/2025 8:44 AM EST 500 mg ciprofloxacin (Cipro) tablet 500 mg 500 mg, Oral, Daily, First dose on Tue09/25/25 at 0900, Until Discontinued, Routine dextrose 10 % (D10W) bolus 125 mL 125 mL, Intravenous, Every 15 min PRN, Starting on Tue09/17/25 at 1719, Until Tue09/23/25 at 1231, Administer over 15 Minutes, Routine, low blood sugar BG 51-89 mg/dL dextrose 10 % (D10W) bolus 250 mL 250 mL, Intravenous, Every 15 min PRN, Starting on Tue09/17/25 at 1719, Until Tue09/23/25 at 1231, Administer over 15 Minutes, Routine, PRN low blood sugar BG =/<50 mg/dL ergocalciferol (Vitamin D-2) capsule 50,000 Units 50,000 Units, Oral, Weekly, First dose on Tue09/18/25 at 0900, Until Discontinued, Routine Given 09/18/2025 8:15 AM EDT 50,000 Units glucagon (human recombinant) injection 1 mg 1 mg, Intramuscular, Every 15 min PRN, Starting on Tue09/17/25 at 1719, Until Tue09/23/25 at 1231, Routine, low blood sugar per Hypoglycemia Prevention and Treatment protocol glucose (Glutose) 40 % oral gel 15-30 grams of glucose 15-30 grams of glucose, Sublingual, Every 15 min PRN, Starting on Tue09/17/25 at 1719, Until Tue09/23/25 at 1231, Routine, low blood sugar, per Hypoglycemia Prevention and Treatment protocol heparin (porcine) injection 5,000 Units 5,000 Units, Subcutaneous, Every 8 hours, First dose on Tue09/17/25 at 1730, Until Discontinued, Routine Given 09/23/2025 8:52 AM EST 5,000 Units Left Lower Abdomen Given 09/23/2025 2:04 AM EST 5,000 Units R ight Lower Abdomen Given 09/22/2025 5:03 PM EST 5,000 Units L eft Lower Abdomen insulin glargine-yfgn 100 UNIT/ML injection 12 Units 12 Units, Subcutaneous, Nightly, First dose (after last modification) on Tue09/18/25 at 2100, Until Discontinued, Routine Given 09/22/2025 8:56 PM EST 12 Units Left Upper Arm (Back ) Given 09/21/2025 8:42 PM EDT 12 Units Ri ght Lower Abdomen Given 09/20/2025 9:14 PM EDT 12 Units Ri ght Lower Abdomen insulin glargine-yfgn 100 UNIT/ML injection 24 Units 24 Units, Subcutaneous, Nightly, First dose on Tue09/17/25 at 2100, Until Discontinued, Routine Given 09/17/2025 8:23 PM EDT 24 Units Left Upper Arm (Back ) insulin lispro (Admelog) 100 units/mL injection - Correction - Standard Dose 0-5 Units, Subcutaneous, 3 times daily with meals, First dose on Tue09/17/25 at 1815, Until Discontinued, Routine Given 09/23/2025 8:52 AM EST 1 Units Left Lower Abdomen Given 09/22/2025 5:23 PM EST 2 Units Le ft Upper Arm (Back) Given 09/22/2025 12:45 PM EST 2 Units L eft Upper Arm (Back) insulin lispro (Admelog) injection - Correction - Nighttime Dose 0-3 Units, Subcutaneous, 2 times nightly (2100 & 0300), First dose on Tue09/17/25 at 2100, Until Discontinued, Routine Given 09/22/2025 8:56 PM EST 1 Units Left Lower Abdomen Given 09/21/2025 8:42 PM EDT 1 Units Le ft Lower Abdomen Given 09/19/2025 9:11 PM EDT 1 Units Ri ght Lower Abdomen lactulose (Chronulac) 10 GM/15ML solution 20 g 20 g, Oral, 3 times daily, First dose on Tue09/17/25 at 2100, Until Discontinued, Routine Given 09/23/2025 8:15 AM EST 20 g Given 09/22/2025 5:03 PM EST 20 g Given 09/22/2025 8:44 AM EST 20 g lidocaine (Lidoderm) 5 % patch 1 patch 1 patch, Apply externally, Daily PRN, Starting on 09/21/25 at 0910, Until 09/23/25 at 1231, Administer over 12 Hours, Routine, Mild Plus Pain with CPOT DVPRS FLACC PAINAD NPASS NRS Tran-Betancur Faces score of 1 or greater OR NIPS score 2 or greater, Moderate Severe Pain with CPOT score of 3 or greater OR FLACC PAINAD NPASS NRS Tran-Betancur Faces score of 4 or greater OR DVPRS NIPS score of 5 or greater Medication Applied 09/21/2025 2:43 PM EDT 1 patch Back lidocaine 0.9% in sodium bicarbonate (buffered lidocaine) solution solution As needed, Starting on Tue09/19/25 at 0915, Until Tue09/19/25 at 1008, Routine, Intraprocedure Given 09/19/2025 10:08 AM EDT 10 mL Given 09/19/2025 9:15 AM EDT 10 mL magnesium oxide (Mag-Ox) tablet 400 mg 400 mg, Oral, Daily, First dose on Tue09/17/25 at 1815, Until Discontinued Given 09/23/2025 8:16 AM EST 400 mg Given 09/22/2025 8:44 AM EST 400 mg Given 09/21/2025 8:10 AM EDT 400 mg melatonin tablet 3 mg 3 mg, Oral, Nightly PRN, Starting on Tue09/18/25 at 2106, Until Tue09/23/25 at 1231, Routine, sleep Given 09/22/2025 8:55 PM EST 3 mg Given 09/21/2025 8:41 PM EDT 3 mg Given 09/20/2025 9:14 PM EDT 3 mg midodrine (Proamatine) tablet 15 mg 15 mg, Oral, 3 times daily, First dose on Tue09/17/25 at 2100, Until Discontinued, Routine Given 09/23/2025 8:1 5 AM EST 15 mg Given 09/22/2025 8:56 PM EST 15 mg Given 09/22/2025 5:03 PM EST 15 mg oxyCODONE (Roxicodone) immediate release tablet 5 mg 5 mg, Oral, Once as needed, 1 dose, Starting on Tue09/19/25 at 1700, Until Tue09/19/25 at 2112, Routine, Moderate Severe Pain with CPOT score of 3 or greater OR FLACC PAINAD NPASS NRS Tran-Betancur Faces score of 4 or greater OR DVPRS NIPS score of 5 or greater Given 09/19/2025 9:12 PM EDT 5 mg potassium chloride CR (Klor-Con) ER tablet 40 mEq 40 mEq, Oral, Every 4 hours, 2 doses, First dose on Tue09/17/25 at 2115, Last dose on Tue09/18/25 at 0115, Routine Given 09/18/2025 1:13 AM EDT 40 mEq Given 09/17/2025 8:23 PM EDT 40 mEq rifAXIMin (Xifaxan) tablet 550 mg 550 mg, Oral, 2 times daily, First dose on Tue09/17/25 at 2100, Until Discontinued, Routine Given 09/23/2025 8:15 AM EST 550 mg Given 09/22/2025 8:55 PM EST 550 mg Given 09/22/2025 8:44 AM EST 550 mg sertraline (Zoloft) tablet 25 mg 25 mg, Oral, Daily, First dose on Tue09/17/25 at 1815, Until Discontinued, Routine Given 09/23/2025 8:15 AM EST 25 mg Given 09/22/2025 8:44 AM EST 25 mg Given 09/21/2025 8:09 AM EDT 25 mg sodium chloride 0.9 % flush 10 mL 10 mL, Intravenous, Every 12 hours, First dose on Tue09/17/25 at 1715, Until Discontinued, Routine Given 09/23/2025 4:16 AM EST 10 mL Given 09/22/2025 5:14 PM EST 10 mL Given 09/21/2025 4:52 PM EDT 10 mL sodium chloride 0.9 % flush 10 mL 10 mL, Intravenous, As needed, Starting on Tue09/17/25 at 1618, Until Tue09/23/25 at 1231, Routine, line care documented in this encounter Active and Recently Administered Medications Due to Daylight Saving Time, this section may contain times in both EDT and EST. Scheduled Medication Order 09/21/2025 09/22/2025 09/23/2025 bumetanide (Bumex) tablet 0.5 mg 0.5 mg, Oral, 3 times weekly (Once per day on Tuesday), First dose on Tue09/18/25 at 0900, Until Discontinued, Routine 0815 (Given - Provider: Yeni Rosen RN) calcitriol (Rocaltrol) capsule 0.25 mcg 0.25 mcg, Oral, Daily, First dose on Tue09/17/25 at 1815, Until Discontinued, Routine 0810 (Given - Provider: Eva Negron RN) 0844 (Given - Provider: Eva Negron RN) 0815 (Given - Provider: Yeni Rosen RN) calcium carbonate (Tums) chewable tablet 750 mg 750 mg, Oral, Daily, First dose on Tue09/17/25 at 1815, Until Discontinued 0809 (Given - Provider: Eva Negron RN) 0844 (Given - Provider: Eva Negron RN) 0815 (Given - Provider: Yeni Rosen, PARK) cetirizine (ZyrTEC) tablet 10 mg 10 mg, Oral, Daily, First dose on Tue09/17/25 at 1815, Until Discontinued, Routine 0810 (Given - Provider: Eva Negron RN) 0844 (Given - Provider: Eva Negron RN) 0815 (Given - Provider: Yeni Rosen, PARK) cholecalciferol (Vitamin D-3) tablet 1,000 Units 1,000 Units, Oral, Daily, First dose on Tue09/17/25 at 1815, Until Discontinued, Routine 0810 (Given - Provider: Eva Negron RN) 0844 (Given - Provider: Eva Negron RN) 0815 (Given - Provider: Yeni Rosen, PARK) ciprofloxacin (Cipro) tablet 500 mg(Linked Group 1) 500 mg, Oral, 2 times daily, 10 doses, First dose (after last reorder) on Tue09/20/25 at 1045, Last dose on Tue09/24/25 at 2100, Routine 0809 (Given - Provider: Eva Negron RN)2041 (Given - Provider: Viola Knutson RN) 0844 (Given - Provider: Eva Negron RN)2054 (Given - Provider: Tiarra Ray RN) 0815 (Given - Provider: Yeni Rosen, PARK) ciprofloxacin (Cipro) tablet 500 mg(Linked Group 1) 500 mg, Oral, Daily, First dose on Tue09/25/25 at 0900, Until Discontinued, Routine ergocalciferol (Vitamin D-2) capsule 50,000 Units 50,000 Units, Oral, Weekly, First dose on Tue09/18/25 at 0900, Until Discontinued, Routine heparin (porcine) injection 5,000 Units 5,000 Units, Subcutaneous, Every 8 hours, First dose on Tue09/17/25 at 1730, Until Discontinued, Routine 0213 (Given - Provider: Viola Knutson RN)0830 (Given - Provider: Eva Negron RN)1638 (Given - Provider: Eva Negron RN) 0109 (Given - Provider: Viola Knutson RN - Comment: Time change. )0110 (Not Given - Provider: Viola Knutson RN - Reason: Hold for condition: must add comment - Comment: New administration created as this one was not the correct time due to time change from 1:59 AM to 1:00 AM.)0844 (Given - Provider: Eva Negron RN)1703 (Given - Provider: Eva Negron RN) 0204 (Given - Provider: Tiarra Ray, RN)0852 (Given - Provider: Yeni Rosen, RN) insulin glargine-yfgn 100 UNIT/ML injection 12 Units 12 Units, Subcutaneous, Nightly, First dose (after last modification) on Tue09/18/25 at 2100, Until Discontinued, Routine 2041 (Given - Provider: Viola Knutson RN) 205 (Given - Provider: Tiarra Ray, PARK) insulin lispro (Admelog) 100 units/mL injection - Correction - Standard Dose 0-5 Units, Subcutaneous, 3 times daily with meals, First dose on Tue09/17/25 at 1815, Until Discontinued, Routine 0814 (Not Given - Provider: Eva Negron RN - Reason: Order parameters not met)1257 (Given - Provider: Eva Negron RN)1829 (Given - Provider: Eva Negron RN) 0905 (Given - Provider: Eva Negron RN)1245 (Given - Provider: Eva Negron RN)1723 (Given - Provider: Eva Negron RN) 0852 (Given - Provider: Yeni Rosen, RN)1230 (Canceled Entry - Provider: Automatic Discharge Provider - Comment: Automatically canceled at discontinue of medication order) insulin lispro (Admelog) injection - Correction - Nighttime Dose 0-3 Units, Subcutaneous, 2 times nightly (2100 & 0300), First dose on Tue09/17/25 at 2100, Until Discontinued, Routine 0214 (Not Given - Provider: Viola Knutson RN - Reason: Order parameters not met)2041 (Given - Provider: Viola Knutson RN) 035 (Not Given - Provider: Viola Knutson RN - Reason: Order parameters not met)2055 (Given - Provider: Tiarra Ray RN) 020 (Not Given - Provider: Tiarra Ray RN - Reason: Order parameters not met) lactulose (Chronulac) 10 GM/15ML solution 20 g 20 g, Oral, 3 times daily, First dose on Tue09/17/25 at 2100, Until Discontinued, Routine 0809 (Given - Provider: Eva Negron RN)163 (Given - Provider: Eva Negron RN)2040 (Not Given - Provider: Viola Knutson RN - Reason: Patient/Family/Repr esentative Refused) 08 (Given - Provider: Eva Negron RN)1702 (Given - Provider: Eva Negron RN)2056 (Not Given - Provider: Tiarra Ray RN - Reason: Patient/Family/Represen tative Refused) 0815 (Given - Provider: Yeni Rosen RN) magnesium oxide (Mag-Ox) tablet 400 mg 400 mg, Oral, Daily, First dose on Tue09/17/25 at 1815, Until Discontinued 0810 (Given - Provider: Eva Negron RN) 0844 (Given - Provider: Eva Negron RN) 0816 (Given - Provider: Yeni Rosen, PARK) midodrine (Proamatine) tablet 15 mg 15 mg, Oral, 3 times daily, First dose on Tue09/17/25 at 2100, Until Discontinued, Routine 0810 (Given - Provider: Eva Negron RN)163 (Given - Provider: Eva Negron RN)2041 (Given - Provider: Viola Knutson RN) 0844 (Given - Provider: Eva Negron RN)170 (Given - Provider: Eva Negron RN)2055 (Given - Provider: Tiarra Ray RN) 0815 (Given - Provider: Yeni Rosen RN) rifAXIMin (Xifaxan) tablet 550 mg 550 mg, Oral, 2 times daily, First dose on Tue09/17/25 at 2100, Until Discontinued, Routine 0810 (Given - Provider: Eva Negron RN)2041 (Given - Provider: Viola Knutson RN) 0844 (Given - Provider: Eva Negron RN)2054 (Given - Provider: Tiarra Ray RN) 0815 (Given - Provider: Yeni Rosen RN) senna (Senokot) tablet 8.6 mg 8.6 mg (1 tablet), Oral, Nightly, First dose on Tue09/17/25 at 2100, Until Discontinued, Routine 2040 (Not Given - Provider: Viola Knutson RN - Reason: Patient/Family/Repr esentative Refused) 2056 (Not Given - Provider: Tiarra Ray RN - Reason: Patient/Family/Represen tative Refused) sertraline (Zoloft) tablet 25 mg 25 mg, Oral, Daily, First dose on Tue09/17/25 at 1815, Until Discontinued, Routine 0809 (Given - Provider: Eva Negron RN) 0844 (Given - Provider: Eva Negron RN) 0815 (Given - Provider: Yeni Rosen RN) sodium chloride 0.9 % flush 10 mL(Linked Group 2) 10 mL, Intravenous, Every 12 hours, First dose on Tue09/17/25 at 1715, Until Discontinued, Routine 042 (Given - Provider: Viola Knutson RN)1651 (Given - Provider: Eva Negron RN) 042 (Not Given - Provider: Viola Knutson RN - Reason: Hold for condition: must add comment - Comment: pt asleep)1714 (Given - Provider: Eva Negron RN) 0416 (Given - Provider: Tiarra Ray RN) PRN Medication Order 09/21/2025 09/22/2025 09/23/2025 acetaminophen (Tylenol) tablet 500 mg 500 mg, Oral, Every 6 hours PRN, Starting on Tue09/18/25 at 1515, Until Tue09/23/25 at 1231, Routine, Mild Plus Pain with CPOT DVPRS FLACC PAINAD NPASS NRS Tran-Betancur Faces score of 1 or greater OR NIPS score 2 or greater, Moderate Severe Pain with CPOT score of 3 or greater OR FLACC PAINAD NPASS NRS Tran-Betancur Faces score of 4 or greater OR DVPRS NIPS score of 5 or greater 0825 (Given - Provider: Eva Negron RN)1439 (Given - Provider: Eva Negron RN) 0854 (Given - Provider: Eva Negron RN) carboxymethylcellulose PF (Refresh Plus) 0.5 % ophthalmic solution 1 drop 1 drop, Both Eyes, As needed, Starting on Tue09/17/25 at 1712, Until Tue09/23/25 at 1231, Routine, dry eyes dextrose 10 % (D10W) bolus 125 mL(Linked Group 3) 125 mL, Intravenous, Every 15 min PRN, Starting on Tue09/17/25 at 1719, Until Tue09/23/25 at 1231, Administer over 15 Minutes, Routine, low blood sugar BG 51-89 mg/dL dextrose 10 % (D10W) bolus 250 mL(Linked Group 3) 250 mL, Intravenous, Every 15 min PRN, Starting on Tue09/17/25 at 1719, Until Tue09/23/25 at 1231, Administer over 15 Minutes, Routine, PRN low blood sugar BG =/<50 mg/dL glucagon (human recombinant) injection 1 mg(Linked Group 3) 1 mg, Intramuscular, Every 15 min PRN, Starting on Tue09/17/25 at 1719, Until Tue09/23/25 at 1231, Routine, low blood sugar per Hypoglycemia Prevention and Treatment protocol glucose (Glutose) 40 % oral gel 15-30 grams of glucose(Linked Group 3) 15-30 grams of glucose, Sublingual, Every 15 min PRN, Starting on Tue09/17/25 at 1719, Until Tue09/23/25 at 1231, Routine, low blood sugar, per Hypoglycemia Prevention and Treatment protocol lidocaine (Lidoderm) 5 % patch 1 patch 1 patch, Apply externally, Daily PRN, Starting on Tue09/21/25 at 0910, Until Tue09/23/25 at 1231, Administer over 12 Hours, Routine, Mild Plus Pain with CPOT DVPRS FLACC PAINAD NPASS NRS Tran-Betancur Faces score of 1 or greater OR NIPS score 2 or greater, Moderate Severe Pain with CPOT score of 3 or greater OR FLACC PAINAD NPASS NRS Tran-Betancur Faces score of 4 or greater OR DVPRS NIPS score of 5 or greater 1443 (Medication Applied - Provider: Eva Negron RN) 0226 (Medication Removed - Provider: Viola Knutson, RN) melatonin tablet 3 mg 3 mg, Oral, Nightly PRN, Starting on Tue09/18/25 at 2106, Until Tue09/23/25 at 1231, Routine, sleep 2040 (Given - Provider: Viola Knutson, RN) 2054 (Given - Provider: Tiarra Ray RN) sodium chloride 0.9 % flush 10 mL(Linked Group 2) 10 mL, Intravenous, As needed, Starting on Tue09/17/25 at 1618, Until Tue09/23/25 at 1231, Routine, line care Linked Groups Order Group 1: ciprofloxacin (Cipro) tablet 500 mgJump to med 500 mg, Oral, 2 times daily, 10 doses, First dose (after last reorder) on Tue09/20/25 at 1045, Last dose on Tue09/24/25 at 2100, Routine Followed by ciprofloxacin (Cipro) tablet 500 mgJump to med 500 mg, Oral, Daily, First dose on Tue09/25/25 at 0900, Until Discontinued, Routine Group 2: Insert peripheral IV (CANCELED) Once, On Tue09/17/25 at 1619, For 1 occurrence And Saline lock IV (CANCELED) Once, On Tue09/17/25 at 1619, For 1 occurrence And sodium chloride 0.9 % flush 10 mLJump to med 10 mL, Intravenous, Every 12 hours, First dose on Tue09/17/25 at 1715, Until Discontinued, Routine And sodium chloride 0.9 % flush 10 mLJump to med 10 mL, Intravenous, As needed, Starting on Tue09/17/25 at 1618, Until Tue09/23/25 at 1231, Routine, line care Group 3: glucose (Glutose) 40 % oral gel 15-30 grams of glucoseJump to med 15-30 grams of glucose, Sublingual, Every 15 min PRN, Starting on Tue09/17/25 at 1719, Until Tue09/23/25 at 1231, Routine, low blood sugar, per Hypoglycemia Prevention and Treatment protocol Or dextrose 10 % (D10W) bolus 125 mLJump to med 125 mL, Intravenous, Every 15 min PRN, Starting on Tue09/17/25 at 1719, Until Tue09/23/25 at 1231, Administer over 15 Minutes, Routine, low blood sugar BG 51-89 mg/dL Or dextrose 10 % (D10W) bolus 250 mLJump to med 250 mL, Intravenous, Every 15 min PRN, Starting on Tue09/17/25 at 1719, Until Tue09/23/25 at 1231, Administer over 15 Minutes, Routine, PRN low blood sugar BG =/<50 mg/dL Or glucagon (human recombinant) injection 1 mgJump to med 1 mg, Intramuscular, Every 15 min PRN, Starting on Tue09/17/25 at 1719, Until Tue09/23/25 at 1231, Routine, low blood sugar per Hypoglycemia Prevention [...] documented as of this encounter Care Teams Blind Escort Relationship Specialty Start Date End Date Lillie Pritchard MD [address] [place] [id number] PCP - General Family Medicine 09/03/25 Lea Fernando [address] [place] [id number] [employer]ic Endocrinology 08/29/24 Rachel Ray RN [address] [place] [id number] Nurse Practitioner Gastroenterology 09/24/24 Tamera Isabel LPN VALUE-BASED TRANSFORMATION PROGRAM None Licensed Practical Nurse 05/29/25 Shaniqua Trevino LPN None None TCM Nurse 08/21/25 09/20/25 documented as of this encounter
--- OUTSIDE RECORDS SUMMARY | 2025-09-26 06:15 | XMS_ITS | Encounter Summary ---
Author Organization [facility] Address [address] [place] [address] Care Team Providers Care Distribution District Supervisor Name Role Phone Lea Fernando Unavailable [phone] Rachel Ray RN Unavailable [phone] Tamera Isabel LPN Unavailable Unavailabl Lillie Washburn MD Primary Care Provider [phone] Reason for Referral * Clinic-Administered Medication (Routine) - Closed Specialty Diagnoses / Procedures Referred By Eder t Referred To Contact Diagnoses Other ascites Procedures WI ABDOM PARACENTESIS DX/THER W IMAGING GUIDANCE Fabiana Renee APRN, DNP [address] [place] [address] Phone: tel: fax: [facility] [address] [place] [address] Phone: tel: fax: Referral ID Status Reason Start Date Expiration Date Visits Re quested Visits Authorized [id number] Closed 09/26/2025 03/28/2027 1 1 * Imaging (Routine) - Closed Specialty Diagnoses / Procedures Referred By Contac t Referred To Contact Radiology Diagnoses Other ascites Procedures US Guided Thoracentesis Marianna Gordon APRN [address] [place] [address] Phone: tel: fax: Referral ID Status Reason Start Date Expiration Date Visits Re quested Visits Authorized [id number] Closed 08/30/2025 03/01/2027 1 1 Reason for Visit * Imaging (Routine) - Closed Specialty Diagnoses / Procedures Referred By Eder zhu Referred To Contact Radiology Diagnoses Other ascites Procedures US Guided Thoracentesis Marianna Gordon APRN [address] [place] [address] Phone: tel: fax: Referral ID Status Reason Start Date Expiration Date Visits Re quested Visits Authorized [id number] Closed 08/30/2025 03/01/2027 1 1 Encounter Details Date Type Department Care Team (Latest Contact Info) Description 09/26/2025 6:15 AM EST - 09/26/2025 6:19 AM EST Hospital Encounter [facility] Interventional Radiology [address] [place] [address] Candy Ness, COCKTAIL SERVER None Other ascites Discharge Disposition: Home or Self [...] do you attend [facility] or jewish services? Patient unable to answer [...] more drinks on one occasion? Never 09/03/2025 [facility] - Occupational [...] living in a chcf (including now)? No 09/18/2025 [facility] Utilities Answer Date Recorded In the [...] first t kennedy in the morning (EYE-MANAGER BASKETBALL) to steady your nerves or to get [...] on file documented as of this encounter Discharge Instructions * Discharge Instructions* Candy Ness RN - 09/26/2025 9:02 AM EST *Interventional Radiology* (IR) Questions/Concerns & Appointments If there are questions or concerns after discharge please call: Vascular & Interventional Radiology Clinic at [phone] Tuesday - Tuesday 8:00 AM to 4:30 PM After hours, weekends, and holidays please call [phone] and ask for the Interventional Radiology provider/Resident on-call For Emergencies please go to the nearest Emergency Room or dial 911. Intervention Radiology Appointments: If you need to reschedule a procedure, please call our Schedulers at [phone], option [phone]. If you need to schedule or reschedule a clinic appointment, please call [phone]. [facility] Interventional Radiology [facility] [place] [id number] [facility], [facility] [place] [address] documented in this encounter Medications at Time [...] left ankle ergocalciferol (Vitamin D-2) 1.25 MG (73107 UT) capsule Take 1 capsule by mouth [...] as of this encounter Miscellaneous Notes * Candy Daniel RN - 09/26/2025 9:02 AM EST Images from the original note were not included. [id number] Discharge Instructions for Thoracentesis Thoracentesis is a [...] blood. Last Reviewed Date: 2025 00:00:00 ?? 8531-6307 [employer]. All rights reserved. This information is not intended as a substitute for professional medical care. Always follow your healthcare professional's instructions. * [facility] Candy Ness RN - 09/26/2025 9:02 AM EST Images from the original note were not included. [id number] Discharge Instructions for Paracentesis Paracentesis is a [...] fainting. Last Reviewed Date: 2025 00:00:00 ?? 5022-0359 [employer]. All rights reserved. This information is not intended as a substitute for professional medical care. Always follow your healthcare professional's instructions. * John ZendejasTHEO - Candy Ness RN - 09/26/2025 9:02 AM EST Images from the original note were not included. 36026 Paracentesis Your healthcare provider recommends that you [...] are taking. This includes all prescription medicines, xmfy-vsn-memefwf medicines, street drugs, herbs, vitamins, and other [...] fainting Last Reviewed Date: 2025 00:00:00 ?? 9095-0388 [employer]. All rights reserved. This information is not intended as a substitute for professional medical care. Always follow your healthcare professional's instructions. * Post-Procedure Note - Wily Siddiqui MD - 09/26/2025 7:30 AM EST Vascular and Interventional Radiology Brief Postprocedure Note Attending: Kirby Driver Examiner: Artur Pre-operative Diagnosis: pleural effusion and ascites Post-operative Diagnosis: pleural effusion and ascites Type of Anesthesia: Local Description of Findings: see report Technical/Surgical Procedures Used: US guided thoracentesis and paracentesis Specimen Obtained: Yes, fluid sample Complications: None Estimated Blood Loss: minimal Procedure Events Event Event Time See detailed result report with images in PACS. The patient tolerated the procedure well without incident or complication and is in stable condition. * Interval H&P Note - Fabiana Renee APRN, DNP - 09/26/2025 7:30 AM EST Patient presents for paracentesis and thoracentesis. H&P personally reviewed, no interval change. Source Note - Maria Dolores Ontiveros APRN, DNP - 09/19/2025 7:29 AM EDT 09/19/25 Patient: Gabi Zimmer Date of : 1960/63 [...] is no recent study available for direct jrsi-vg-ifhq comparison. Assessment & Plan: NAIDU cirrhosis decompensated [...] prior to procedure - Hold anticoagulation at [place] evening prior to procedure Thank you for allowing us to participate in the care of this patient. Maria Dolores Ontiveros, ADRI, DNP Interventional Radiology [phone] [1] Past Medical History: Diagnosis Date ADHD (attention deficit hyperactivity disorder) Allergic Anxiety disorder, unspecified Anxiety Bleeding gums Blood in urine Cataract Chronic kidney disease Cirrhosis (CMS/HCC) Colon cancer screening 09/20/2019 Added automatically from request for surgery [id number] Coronary artery disease Depression 1996 Diabetes mellitus [...] 1979 BLADDER SURGERY N/A Bladder surgery from [facility] BREAST BIOPSY 2011 BREAST SURGERY 2010 BUNIONECTOMY Right CATARACT EXTRACTION Bilateral 2016 CHOLECYSTECTOMY 1979 ESOPHAGOGASTRODUODENOSCOPY HYSTERECTOMY N/A Hysterectomy from [facility] KNEE SURGERY Bilateral ORAL SURGERY N/A Oral surgery from [facility] OTHER SURGICAL HISTORY 2014 ROOT CANAL WISDOM [...] Ck Hicks MD, 0.5 mg at 09/18/25 08 calcitriol (Rocaltrol) capsule 0.25 mcg, 0.25 mcg, Oral, Daily, Ck Hicks MD, 0.25 mcg at 09/18/25 0816 calcium carbonate (Tums) chewable tablet 750 mg, 750 mg, Oral, Daily, Ck Hicks MD, 750 mgat 09/18/25815 carboxymethylcellulose PF (Refresh Plus) 0.5 % ophthalmic solution 1 drop, 1 drop, Both Eyes, PRN, Ck Hicks MD, 1 drop at 09/18/252140 cefTRIAXone (Rocephin) 2 g in sodium chloride 0.9% 100 mL IVPB (vial adapter required), 2 g, Intravenous, q24h, Ck Hicks MD, Last Rate: 220 mL/hr at 09/18/25 1542, 2 g at 09/18/25 154 cetirizine (ZyrTEC) tablet 10 mg, 10 mg, Oral, Daily, Ck Hicks MD, 10 mg at 09/18/25814 cholecalciferol (Vitamin D-3) tablet 1,000 Units, 1,000 Units, Oral, Daily, Ck Hicks MD, 1,000 Units at 09/18/25815 glucose (Glutose) 40 % oral gel 15-30 [...] Weekly, Ck Hicks MD, 50,000 Units at 09/18/25814 heparin (porcine) injection 5,000 Units, 5,000 Units, Subcutaneous, q8h, Love Kemp MD, 5,000 Units at 09/19/2531 insulin glargine-yfgn 100 UNIT/ML injection 12 Units, 12 Units, Subcutaneous, Nightly, Ck Hicks MD, 12 Units at 09/18/252140 insulin lispro (Admelog) 100 units/mL injection - Correction - Standard Dose, 0- 5 Units, Subcutaneous, TID with meals, Ck Hicks MD, 1 Units at 09/18/251725 insulin lispro (Admelog) injection - Correction - [...] 10 mL, Intravenous, PRN, Love Kemp MD documented in this encounter Plan of Treatment Upcoming Encounters Date Type Department Care Team (Late st Contact Info) Description 11/13/2025 1:00 PM EST Appointment [facility] Interventional Radiology [address] [place] [address] 11/13/2025 2:00 PM EST Appointment [facility] Interventional Radiology [address] [place] [address] 11/20/2025 11:45 AM EST Appointment [facility] Interventional Radiology [address] [place] [facility] [address] 11/20/2025 12:45 PM EST Appointment [facility] Interventional Radiology [address] [place] [facility] [address] 11/22/2025 1:00 PM EST Office Visit [facility] [address] [place] [address] Barrie Peterson MD [address] [place] [address] 11/28/2025 10:00 AM EST Appointment [facility] Interventional Radiology [address] [place] [address] 11/28/2025 11:00 AM EST Appointment [facility] Interventional Radiology [address] [place] [address] 12/05/2025 10:00 AM EST Appointment [facility] Interventional Radiology [address] [place] [address] 12/05/2025 11:00 AM EST Appointment [facility] Interventional Radiology [address] [place] [facility] [address] 12/20/2025 11:00 AM EST Office Visit [facility] Endocrinology [address] [place] [address] Miranda Hobson P, MAGNETIC TAPE TYPEWRITER OPERATOR [address] [facility] [address] [place] [address] 03/07/2026 9:00 AM EDT Office Visit [facility] [address] [place] [address] Grover Little MD [address] [place] [address] documented as of this encounter Procedures Procedure Name Priority Date/Time Associated Diagnosis Comments XR CHEST 1 VIEW STAT 09/26/2025 9:37 AM EST US GUIDED ABDOMINAL PARACENTESIS Routine 09/26/2025 9:16 AM EST Abdominal ascites US GUIDED THORACENTESIS Routine 09/26/20 9:16 AM EST Other ascites TOTAL PROTEIN, PERITONEAL FLUID Routine 09/26/2025 7:56 AM EST GLUCOSE, PERITONEAL FLUID Routine 09/26/2025 7:56 AM EST BODY FLUID CELL COUNT W/ MANUAL DIFFERENTIAL Routine 09/26/2025 7:55 AM EST BODY FLUID, CYTOSPIN, PATHOLOGIST INTERPRETATION Routine 09/26/2025 7:55 AM EST documented in this encounter Results * XR Chest 1 View (09/26/2025 9:37 AM EST) Anatomical Region Laterality Modality Chest Digital Radiogra phy Impressions 09/26/2025 9:43 AM EST No pneumothorax or large pleural effusion. Mild bibasilar atelectasis. CRITICAL RESULT: No. COMMUNICATION: Per this written report. By electronically signing this report, I, the attending physician, attest that I have personally reviewed the images/data for the above examination(s) and agree with the final edited report. Drafted by Fredy Lucas III, MD on 09/26/2025 9:38 AM Final report signed by Kael Ann MD on 09/26/2025 9:43 AM Narrative 09/26/2025 9:43 AM EST CLINICAL INDICATION: post thora, evaluate for pneumothorax TECHNIQUE: XR CHEST 1 VIEW COMPARISON: Chest radiograph dated 09/10/2025 and 09/19/2025 FINDINGS: No focal airspace consolidation. No large pleural effusion. No pneumothorax. The mediastinal and cardiac contours are stable. Mild bibasilar atelectasis. No acute osseous abnormality. Procedure Note Kael Ann MD - 09/26/2025 CLINICAL INDICATION: post thora, evaluate for pneumothorax TECHNIQUE: XR CHEST 1 VIEW COMPARISON: Chest radiograph dated 09/10/2025 and 09/19/2025 FINDINGS: No focal airspace consolidation. No large pleural effusion. Nopneumothorax. The mediastinal and cardiac contours are stable. Mildbibasilar atelectasis. No acute osseous abnormality. IMPRESSION: No pneumothorax or large pleural effusion. Mild bibasilar atelectasis. CRITICAL RESULT: No. COMMUNICATION: Per this written report. By electronically signing this report, I, the attending physician, attestthat I have personally reviewed the images/data for the aboveexamination(s) and agree with the final edited report. Drafted by Fredy Lucas III, MD on 09/26/2025 9:38 AM Final report signed by Kael Ann MD on 09/26/2025 9:43 AM us Fabiana Renee MAGNETIC TAPE TYPEWRITER OPERATOR, DNP IMG XR PROCEDURES Tari l Result * US Guided Thoracentesis (09/26/2025 9:16 AM EST) Anatomical Region Laterality Modality Chest Ultrasound Impressions 09/26/2025 4:41 PM EST Technically successful ultrasound guided thoracentesis and paracentesis. A sample of the fluid was sent for laboratory analysis. Administered Albumin 37.5 g IV once post procedure. CRITICAL RESULT: No. COMMUNICATION: Per this written report. Preliminary report signed by Wily Siddiqui MD on 09/26/2025 4:21 PM By electronically signing this report, I, the attending physician, attest that I was present for the jimenes and critical portions of the procedure(s) and agree with the final edited report. Drafted by Wily Siddiqui MD on 09/26/2025 3:30 PM Final report signed by Mike Orr MD on 09/26/2025 4:41 PM Narrative 09/26/2025 4:41 PM EST CLINICAL INDICATION: 65 y.o. female with a [...] perform both paracentesis and right thoracentesis. TECHNIQUE: Service Correspondent: Wily Siddiqui MD Attending Physician: Mike Orr MD Medications: Continuous physiologic monitoring provided by a qualified healthcare professional. Administered: 1% Lidocaine SQ. Antibiotics: NA Time out: 7:49 AM Procedure: After discussion of risks and benefits, [...] A total of 3.3 liters of clear dark yellow fluid was removed. The centesis catheter was removed and occlusive dressing applied. Next, attention was turned to the chest for thoracentesis. Limited chest ultrasound was performed, which showed an anechoic fluid collection in the right pleural space. 1% buffered lidocaine used for local analgesia. Under real-time ultrasound guidance, a 6 Fr centesis catheter was advanced into the pleural fluid. Ultrasound images were sent to permanent storage in PACS. A total of 0.4 liters of clear yellow fluid was removed. The needle was removed and occlusive dressing applied. The patient tolerated the procedure well. The patient left the IR suite in stable condition. COMPARISON: September 19, 2025 FINDINGS: Moderate right pleural fluid. Moderate volume ascites COMPLICATION: No. Procedure Note Mike Orr MD - 09/26/2025 CLINICAL INDICATION: 65 y.o. female with a past medical history of NAIDU cirrhosis decompensatedby ascites, hepatic hydrothorax, hepatic encephalopathy, esophagealvarices, diabetes mellitus, anxiety, depression, COPD, CKD, CAD, JONATHAN whohajo had multiple admissions recently. She was admitted from clinic due toAKI. She was previously scheduled as an outpatient for paracentesis andright thoracentesis today. VIR was consulted to perform both paracentesisand right thoracentesis. TECHNIQUE: Service Correspondent: Wily Siddiqui MD Attending Physician: Mike Orr MD Medications: Continuous physiologic monitoring provided by a qualifiedhealthcare professional. Administered: 1% Lidocaine SQ. Antibiotics: NA Time out: 7:49 AM Procedure: After discussion of risks and benefits, [...] topermanent storage in PACS. A total of 3.3 liters of clear dark yellowfluid was removed. The centesis catheter was removed and occlusivedressing applied. Next, attention was turned to the chest for thoracentesis. Limited chestultrasound was performed, which showed an anechoic fluid collection in theright pleural space. 1% buffered lidocaine used for local analgesia. Underreal-time ultrasound guidance, a 6 Fr centesis catheter was advanced intothe pleural fluid. Ultrasound images were sent to permanent storage inPACS. A total of 0.4 liters of clear yellow fluid was removed. The needlewas removed and occlusive dressing applied. The patient tolerated the procedure well. The patient left the IR suitein stable condition. COMPARISON: September 19, 2025 FINDINGS: Moderate right pleural fluid. Moderate volume ascites COMPLICATION: No. IMPRESSION: Technically successful ultrasound guided thoracentesis and paracentesis. A sample of the fluid was sent for laboratory analysis. Administered Albumin 37.5 g IV once post procedure. CRITICAL RESULT: No. COMMUNICATION: Per this written report. Preliminary report signed by Wily Siddiqui MD on 09/26/2025 4:21 PM By electronically signing this report, I, the attending physician, lana I was present for the jimenes and critical portions of the procedure(s)and agree with the final edited report. Drafted by Wily Siddiqui MD on 09/26/2025 3:30 PM Final report signed by Mike Orr MD on 09/26/2025 4:41 PM us Marianna Gordon MAGNETIC TAPE TYPEWRITER OPERATOR IMG US PROCEDURES Final Resu lt * Glucose - Ascites (09/26/2025 7:56 AM EST) Glucose, Fluid 253 mg/dL 09/26/2025 11:28 AM EST [facility] Ascites Peritoneal cavity structure / Unknown 09/26/2025 7:56 AM EST 09/26/2025 9:39 AM EST Narrative [facility] - 09/26/2025 11:28 AM EST Peritoneal/Ascites No established reference interval. Results should [...] 3) Glucose < 50 mg/dL. us Fabiana Renee APRN, DNP LAB BODY FLUIDS AND ST OOLS ORDERABLES Final Result [facility] [address] [place] [address] * Protein - Ascites (09/26/2025 7:56 AM EST) Total Protein, Fluid 0.8 g/dL 09/26/2025 11:28 AM EST [facility] Ascites Peritoneal cavity structure / Unknown 09/26/2025 7:56 AM EST 09/26/2025 9:39 AM EST Narrative [facility] - 09/26/2025 11:28 AM EST This test was developed and its performance characteristics determined by [facility]. The U.S. Food and Drug Administration has not approved or cleared this test. However, FDA clearance or approval is not currently required for clinical use. The results are not intended to be used as the sole means for clinical diagnosis or patient management decisions. Fabiana Renee APRN, DNP LAB BODY FLUIDS AND ST OOLS ORDERABLES Final Result Performing Organization Address City/[facility] Co de Phone Number [facility] [address] [place] [address] * Body fluid, cytospin, pathologist interpretation (09/26/2025 7:55 AM EST) Specimen Type Body Fluid LAB HEMATOLOGY METHOD 09/27/2025 1:49 PM EST [facility] Specimen Source, Body Fluid Peritoneal Fluid LAB HEMATOLOGY METHOD 09/27/2025 1:49 PM EST [facility] Clinical Diagnosis, Body Fluid Cirrhosis, ascites, right pleural effusion LAB HEMATOLOGY METHOD 09/27/2025 1:49 PM EST [facility] Interpretation , Body Fluid No evidence of malignancy Predominantly chronic inflammatory cells Occasional plasma cells Light blood A resident was involved in the service. I attest I examined the relevant preparations for the specimens and confirmed the diagnosis or interpretation. 09/27/2025 1:49 PM EST [facility] Pathologist Signature, Body Fluid 09/27/2025 1:49 PM EST [facility] Comment:Reviewed by: Kadie dobbs MD LAB CP ASR DISCLAIMER Yes 09/27/2025 1:49 PM EST [facility] Body Fluid Peritoneal fluid / Unknown Non-blood Collection / Unknown 09/26/2025 7:55 AM EST 09/26/2025 9:39 AM EST Fabiana Renee APRN, DNP LAB BODY FLUIDS AND ST OOLS ORDERABLES Final Result Performing Organization Address [facility]/ZIP Co de Phone Number [facility] [address] [place] [address] * (ABNORMAL) Body Fluid Cell Count With Diff - Ascites (09/26/2025 7:55 AM EST) Color, Body fluid [place] LAB HEMATOLOGY METHOD 09/26/2025 3:47 PM [facility] Appearance, Body fluid Cloudy(A) LAB HEMATOLOGY METHOD 09/26/2025 3:47 PM [facility] Volume, Body fluid 60.0 cc LAB HEMATOLOGY METHOD 09/26/2025 3:47 PM [facility] Fluid Container Specimen received in miscellaneous container LAB HEMATOLOGY METHOD 09/26/2025 3:47 PM [facility] Red Blood Cell Count, Body fluid 6,000 uL LAB HEMATOLOGY METHOD 09/26/2025 3:47 PM [facility] Total Nucleated Cell Count, Body fluid 136 uL LAB HEMATOLOGY METHOD 09/26/2025 3:47 PM [facility] Neutrophils %, Body fluid 2 % LAB HEMATOLOGY METHOD 09/26/2025 3:47 PM [facility] Lymphocytes %, Body fluid 74 % LAB HEMATOLOGY METHOD 09/26/2025 3:47 PM [facility] Monocytes/Macr ophages %, Body fluid 22 % LAB HEMATOLOGY METHOD 09/26/2025 3:47 PM [facility] Eosinophils %, Body fluid 1 % LAB HEMATOLOGY METHOD 09/26/2025 3:47 PM [facility] Lining/[place]es[place] lial Cells %, Body fluid 1 % LAB HEMATOLOGY METHOD 09/26/2025 3:47 PM [facility] Neutrophils Absolute (PMN), Body fluid 3 uL LAB HEMATOLOGY METHOD 09/26/2025 3:47 PM [facility] Lymphocytes Absolute, Body fluid 101 uL LAB HEMATOLOGY METHOD 09/26/2025 3:47 PM [facility] Monocytes/Macr ophages Absolute, Body fluid 30 uL LAB HEMATOLOGY METHOD 09/26/2025 3:47 PM [facility] Eosinophils Absolute, Body fluid 1 uL LAB HEMATOLOGY METHOD 09/26/2025 3:47 PM [facility] Basophils Absolute, Body fluid 0 uL LAB HEMATOLOGY METHOD 09/26/2025 3:47 PM [facility] Lining/Mes[place] lial Cells Absolute, Body fluid 1 uL LAB HEMATOLOGY METHOD 09/26/2025 3:47 PM [facility] Basophils %, Body fluid 0 % LAB HEMATOLOGY METHOD 09/26/2025 3:47 PM EST [facility] Body Fluid Peritoneal fluid / Unknown Non-blood Collection / Unknown 09/26/2025 7:55 AM EST 09/26/2025 9:39 AM EST us Fabiana Renee MAGNETIC TAPE TYPEWRITER OPERATOR, DNP LAB BODY FLUID S AND STOOLS ORDERABLES NO SPECIMEN TYPE/SOURCE Final Result [facility] [address] [place] [id number] documented in this encounter Visit Diagnoses Diagnosis Other ascites documented in this encounter Administered Medications Inactive Administered Medications - up to 3 most recent administrations Medication Order MAR Action Action Date Dose Rate Site albumin human 25 % infusion 37.5 g 37.5 g, Intravenous, Once as needed, 1 dose, Starting on Sarahi 09/26/25 at 0703, Until Sarahi 09/26/25 at 0911, Routine, For 5-6.9 L drained New Bag 09/26/2025 9:11 AM EST 37.5 g lidocaine 0.9% in sodium bicarbonate (buffered lidocaine) solution solution As needed, Starting on Sarahi 09/26/25 at 0751, Until Sarahi 09/26/25 at 0751, Routine, Intraprocedure Given 09/26/2025 7:51 AM EST 10 mL documented in this encounter Additional Health Concerns Assessment Noted Time PHQ-9 Depression Total Score: 24 025 8:56 AM EDT A fall risk assessment has been complete d for the patient 09/17/2025 11:06 AM EDT A Body Mass Index follow-up plan has been documented for the patient 09/26/2025 9:18 AM EST documented as of this encounter Care Teams Distribution District Supervisor Relationship Specialty Start Date End Date Lillie Pritchard MD [address] [place] [address] PCP - General Family Medicine 09/03/25 Lea Fernando [address] [address] Sql Server Dba Developer Endocrinology 08/29/24 Rachel Ray, RN [address] [address] Nurse Practitioner Gastroenterology 09/24/24 Tamera Isabel LPN VALUE-BASED TRANSFORMATION PROGRAM None Licensed Practical Nurse 05/29/25 documented as of this encounter
--- OUTSIDE RECORDS SUMMARY | 2025-09-26 06:20 | XMS_ITS | Encounter Summary ---
Author Organization [facility] Address [address] [place] [address] Care Team Providers Care Spouting Installer Name Role Phone Lea Fernando Unavailable [phone] Rachel Ray RN Unavailable [phone] Tamera Isabel LPN Unavailable Unavailabl e Lillie Pritchard MD Primary Care Provider [phone] Reason for Referral * Imaging (Routine) - Closed Specialty Diagnoses / Procedures Referred By Contac t Referred To Contact Radiology Diagnoses Abdominal ascites Procedures US Guided Abdominal Paracentesis Marianna Gordon APRN [address] [place] [address] Phone: tel: fax: Referral ID Status Reason Start Date Expiration Date Visits Re quested Visits Authorized [id number] Closed 09/12/2025 03/14/2027 1 1 Reason for Visit * Imaging (Routine) - Closed Specialty Diagnoses / Procedures Referred By Contac t Referred To Contact Radiology Diagnoses Abdominal ascites Procedures US Guided Abdominal Paracentesis Marianna Gordon APRN [address] [place] [address] Phone: tel: fax: Referral ID Status Reason Start Date Expiration Date Visits Re quested Visits Authorized [id number] Closed 09/12/2025 03/14/2027 1 1 Encounter Details Date Type Department Care Team (Latest Contact Info) Description 09/26/2025 6:20 AM EST - 09/26/2025 9:17 AM [facility] Hospital Encounter [facility] Interventional Radiology [address] [place] [address] Candy Ness, IRRIGATION TEACHER None Abdominal ascites Discharge Disposition: Home or Self Care [...] more drinks on one occasion? Never 09/03/2025 [facility] [...] living in a long-term (including now)? No 09/18/[address] [facility] Utilities Answer Date Recorded In the past 12 months has th e [employer], gas, oil, or water [employer] threatened to shut off services in your [...] first t kennedy in the morning (EYE-PHYSICAL CHEMIST) to steady your nerves or to get [...] left ankle ergocalciferol (Vitamin D-2) 1.25 MG (37221 UT) capsule Take 1 capsule by mouth [...] vomiting. 5 documented as of this encounter Plan of Treatment Upcoming Encounters Date Type Department Care Team (Late st Contact Info) Description 11/13/2025 1:00 PM EST Appointment [facility] Inter[facility] Radiology [address] [place] [address] 11/13/2025 2:00 PM EST Appointment [facility] Radiology [address] [place] [address] 11/20/2025 11:45 AM EST Appointment [facility]iology [address] [place] [address] 11/20/2025 12:45 PM EST Appointment [facility] Inter[facility] Radiology [address] [place] [address] 11/22/2025 1:00 PM EST Office Visit [facility] [address] [place] [address] Barrie Peterson MD [address] [place] [address] 11/28/2025 10:00 AM EST Appointment [facility] Inter[facility] Radiology [address] [place] [address] 11/28/2025 11:00 AM EST Appointment [facility]iology [address] [place] [address] 12/05/2025 10:00 AM EST Appointment [facility] [address] [place] [address] 12/05/2025 11:00 AM EST Appointment [facility] Inter[facility] Radiology [address] [place] [address] 12/20/2025 11:00 AM EST Office Visit [facility] Endocrinology [address] [place] [address] Miranda Hobson, PATIENT COORDINATOR [address] [facility] [address] [place] [address] 03/07/2026 9:00 AM EDT Office Visit [place] [facility] [address] [place] [address] Grover Little MD [address] [facility] [address] [place] [address] documented as of this encounter Procedures Procedure Name Priority Date/Time Associated Diagnosis Comments US GUIDED ABDOMINAL PARACENTESIS Routine 09/26/2025 9:16 AM EST Abdominal ascites documented in this encounter Results * US Guided Abdominal Paracentesis (09/26/2025 9:16 AM EST) Anatomical Region Laterality Modality Abdomen Ultrasound Impressions 09/26/2025 4:41 PM EST Technically [...] perform both paracentesis and right thoracentesis. TECHNIQUE: Stained Glass Glazier Helper: Wily Siddiqui MD Attending Physician: Mike Orr [...] mellitus, anxiety, depression, COPD, CKD, CAD, JONATHAN whohas had multiple admissions recently. She was admitted from clinic due toAKI. She was previously scheduled as an outpatient for paracentesis andright thoracentesis today. VIR was consulted to perform both paracentesisand right thoracentesis. TECHNIQUE: Stained Glass Glazier Helper: Wily Siddiqui MD Attending Physician: Mike Orr [...] [facility] A total of 0.4 liters of clear [...] report, I, the attending physician, atthadleythat I was present for the jimenes and critical portions of the procedure(s)and agree with the final edited report. Drafted by Wily Siddiqui MD on 09/26/2025 3:30 PM Final report signed by Mike Orr MD on 09/26/2025 4:41 PM us Marianna Dixon Gordon PATIENT COORDINATOR IMG US PROCEDURES Final Resu lt documented in this encounter Visit Diagnoses Diagnosis Other ascites Abdominal ascites documented in this encounter Additional Health Concerns Assessment Noted Time PHQ-9 Depression Total Score: 24 025 8:56 AM EDT A fall risk assessment has been complete d for the patient 09/17/2025 11:06 AM EDT A Body Mass Index follow-up plan has been documented for the patient 09/26/2025 9:18 AM EST documented as of this encounter Care Teams Spouting Installer Relationship Specialty Start Date End Date Lillie Pritchard MD [address] [place] [address] PCP - General Family Medicine 09/03/25 Lea Fernando [address] [address] Cloth Shrinking Tester Endocrinology 08/29/24 Rachel Ray, RN [address] [address] Nurse Practitioner Gastroenterology 09/24/24 Tamera Isabel LPN VALUE-BASED TRANSFORMATION PROGRAM None Licensed Practical Nurse 05/29/25 documented as of this encounter
--- OUTSIDE RECORDS SUMMARY | 2025-09-26 09:18 | XMS_ITS | Encounter Summary ---
Author Organization [facility] Address [address] [place] [address] Care Team Providers Care Rag Room Supervisor Name Role Phone Lea Fernando Unavailable [phone] Rachel Ray RN Unavailable [phone] Tamera Isabel LPN Unavailable [facility] Lillie Pritchard MD Primary Care Provider [phone] Encounter Details Date Type Department Care Team (Latest Contact Info) Description 09/26/2025 9:18 AM EST - 09/26/2025 11:59 PM [facility] Hospital Encounter [facility] Radiology [address] [place] [address] Discharge Disposition: Home or Self Care Social [...] 01/10/2025 How often do you attend [facility] or [facility] services? Patient unable to answer 01/10/2025 Do you belong to any clubs o r organizations such as adventist groups, [employer], [employer] or athletic groups, or school groups? Patient [...] more drinks on one occasion? Never 09/03/2025 [facility] Answer Date [...] in a group home (including now)? No 09/18/2025 [facility] Utilities Answer Date Recorded [...] drink first t kennedy in the morning (EYE-CAFETERIA SUPERVISOR) to steady your nerves or to [...] left ankle ergocalciferol (Vitamin D-2) 1.25 MG (75931 UT) capsule Take 1 capsule by mouth [...] Interventional Radiology [address] [place] [address] 11/13/2025 2:00 PM EST Appointment [facility] Interventional Radiology [address] [place] [address] 11/20/2025 11:45 AM EST Appointment [facility] Interventional Radiology [address] [facility] [place] [address] 11/20/2025 12:45 PM EST Appointment [facility] Interventional Radiology [address] [facility] [place] [address] 11/22/2025 1:00 PM EST Office Visit [facility] [address] [facility] [address] [place] [address] Barrie Peterson MD [address] [place] [address] 11/28/2025 10:00 AM EST Appointment [facility] Interventional Radiology [address] [place] [address] 11/28/2025 11:00 AM EST Appointment [facility] Inter[facility] Radiology [address] [place] [address] 12/05/2025 10:00 AM EST Appointment [facility] Inter[facility] Radiology [address] [place] [address] 12/05/2025 11:00 AM EST Appointment [facility] Interventional Radiology [address] [place] [address] 12/20/2025 11:00 AM EST Office Visit [facility] Endocrinology [address] [place] [address] Miranda Hobson P, BARREL BRANDER [address] [address] 03/07/2026 9:00 AM EDT Office Visit [place] [facility] [address] [place] [address] Grover Little MD [address] [place] [address] documented as of this encounter Procedures Procedure Name Priority Date/Time Associated Diagnosis Comments XR CHEST 1 VIEW STAT 09/26/2025 9:37 AM EST documented in this encounter Results [...] MD on 09/26/2025 9:43 AM us Fabiana Harp Nicholsmooth BARREL BRANDER, DNP IMG XR PROCEDURES Tari l Result [...] documented as of this encounter Care Teams Rag Room Supervisor Relationship Specialty Start Date End Date Lillie Pritchard MD [address] [place] [address] PCP - General Family Medicine 09/03/25 Lea Fernando [address] [place] [address] Special Education Para Professional Endocrinology 08/29/24 Rachel Ray, RN [address] [place] [address] Nurse Practitioner Gastroenterology 09/24/24 Tamera Isabel LPN VALUE-BASED TRANSFORMATION PROGRAM None Licensed Practical Nurse 05/29/25 documented as of this encounter
--- OUTSIDE RECORDS SUMMARY | 2025-10-03 10:56 | XMS_ITS | Encounter Summary ---
Author Organization [facility] Address [address] [place] [address] Care Team Providers Care Electric Razor Assembler Name Role Phone Lea Fernando Unavailable [phone] Rachel Ray RN Unavailable [phone] Tamera Isabel LPN Unavailable Unavailabl e Lillie Pritchard MD Primary Care Provider [phone] Reason for Referral * Clinic-Administered Medication (Routine) - Closed Specialty Diagnoses / Procedures Referred By Contac t Referred To Contact Diagnoses Other ascites Procedures [place] ALBUMIN (HUMAN), 25%, 50ML Preeti Andersen APRN [address] [place] [address] Phone: tel: fax: Referral ID Status Reason Start Date Expiration Date Visits Re quested Visits Authorized [id number] Closed 10/03/2025 04/04/2027 1 1 * Imaging (Routine) - Closed Specialty Diagnoses / Procedures Referred By Contac t Referred To Contact Radiology Diagnoses Abdominal ascites Procedures US Guided Abdominal Paracentesis Marianna Gordon APRN [address] [place] [address] Phone: tel: fax: Referral ID Status Reason Start Date Expiration Date Visits Re quested Visits Authorized [id number] Closed 09/12/2025 03/14/2027 1 1 Reason for Visit * Imaging (Routine) - Closed Specialty Diagnoses / Procedures Referred By Eder zhu Referred To Contact Radiology Diagnoses Abdominal ascites Procedures US Guided Abdominal Paracentesis Marianna Gordon APRN [address] [place] [address] Phone: tel: fax: Referral ID Status Reason Start Date Expiration Date Visits Re quested Visits Authorized [id number] Closed 09/12/2025 03/14/2027 1 1 Encounter Details Date Type Department Care Team (Latest Contact Info) Description 10/03/2025 10:56 AM EST - 10/03/2025 11:59 PM EST Hospital Encounter [facility] Interventional Radiology [address] [place] [address] Daniele Kennedy RN None None Abdominal ascites; Pleural effusion Discharge Disposition: Home or Self Care Social [...] How often do you attend chur or shinto services? Patient unable to answer [...] often do you attend chur ch or shinto services? Never 05/29/2025 Do you belong to [...] more drinks on one occasion? Never 09/03/2025 [facility] [place] of Occupat ional [facility] - Occupational Stress Questionnaire Answer Date [...] living in a snf (including now)? No 09/18/2025 [facility] Utilities Answer Date Recorded In the past 12 months has th e [employer], gas, oil, or water company threatened to [...] drink first t kennedy in the morning (EYE-INSTRUCTIONAL DESIGNER) to steady your nerves or to get [...] Sign Reading Time Taken Comments Blood Pressure 116/58 10/03/2025 3:30 PM EST Pulse 71 10/03/2025 3:30 PM EST Temperature 36.4 C (97.5 F) 10/03/2025 3:30 PM EST Respiratory Rate 12 10/03/2025 3:30 PM EST Oxygen Saturation 98% 10/03/2025 3:30 PM EST Inhaled Oxygen Concentration - - Weight 79.7 kg (175 lb 11.3 oz) 10/03/2025 1:30 PM EST Height 165.1 cm (5' 5 ) 10/03/2025 1:30 PM EST Body Mass Index 29.24 10/03/2025 1:30 PM EST documented in this encounter Functional Status * Calculated C-SSRS Risk Score (Lifetime/Recent) Answer Date of Assessment Author No Risk Indicated 10/03/2025 2:19 PM EST Daniele Kennedy RN * Question Answer Date of Assessment Author 1. Wish to be (Past 1 Month) No 025 2:19 PM EST Daniele Kennedy, PARK 2. Non-Specific Active Suici liz Thoughts (Past 1 Month) No 10/03/2025 2:19 PM EST Daniele Kennedy, RN 6. Suicidal Behavior (Lifetime) No 2:19 PM EST Daniele Kennedy RN documented as of this encounter Medications [...] left ankle ergocalciferol (Vitamin D-2) 1.25 MG (74784 UT) capsule Take 1 capsule by mouth [...] encounter Miscellaneous Notes * Post-Procedure Note - Preeti Andersen APRN - 10/03/2025 12:30 PM EST Vascular and Interventional Radiology Brief Postprocedure Note Provider: ADRI Andersen Pre-operative Diagnosis: ascites small right pleural effusion Post-operative Diagnosis: Type of Anesthesia: Local Description of Findings: See PACS Technical/Surgical Procedures Used: US + paracentesis Specimen Obtained: YES Complications: None Estimated Blood Loss: none Procedure Events Event Event Time See detailed result report with images in PACS. The patient tolerated the procedure well without incident or complication and is in stable condition. * Interval H&P Note - Preeti Andersen APRN - 10/03/2025 12:30 PM EST H&P reviewed. The patient was examined and there are no changes to the H&P. Will proceed with paracentesis. Source Note - Maria Dolores Ontiveros APRN, [...] is no recent study available for direct cdpq-xo-quzp comparison. Assessment & Plan: NAIDU cirrhosis decompensated [...] care of this patient. Maria Dolores Ontiveros, STORE PROMOTER, DNP Interventional Radiology [phone] [1] Past Medical History: Diagnosis Date ADHD (attention deficit hyperactivity disorder) Allergic Anxiety disorder, unspecified Anxiety Bleeding gums Blood in urine Cataract Chronic kidney disease Cirrhosis (CMS/HCC) Colon cancer screening 09/20/2019 Added automatically from request for surgery [id number] Coronary artery disease Depression 1996 Diabetes mellitus [...] 1979 BLADDER SURGERY N/A Bladder surgery from [facility] BREAST BIOPSY 2011 BREAST SURGERY 2010 BUNIONECTOMY Right CATARACT EXTRACTION Bilateral 2016 CHOLECYSTECTOMY 1979 ESOPHAGOGASTRODUODENOSCOPY HYSTERECTOMY N/A Hysterectomy from [facility] KNEE SURGERY Bilateral ORAL SURGERY N/A Oral surgery from [facility] OTHER SURGICAL HISTORY 2015 ROOT CANAL WISDOM [...] Tuesday, Ck Hicks MD, 0.5 mg at 09/18/25815 calcitriol (Rocaltrol) capsule 0.25 mcg, 0.25 mcg, Oral, Daily, Ck Hicks MD, 0.25 mcg at 09/18/25815 calcium carbonate (Tums) chewable tablet 750 mg, [...] Daily, Ck Hicks MD, 1,000 Units at 09/18/25 0816 [...] Nightly, Ck Hicks MD, 12 Units at 09/18/25 2141 insulin lispro (Admelog) 100 units/mL injection - [...] Daily, Ck Hicks MD, 400 mg at 09/18/25 0816 melatonin tablet 3 mg, 3 mg, Oral, [...] PM EST Appointment [facility] Interventional Radiology [facility] [place] [address] 11/13/2025 2:00 PM EST Appointment [facility] Interventional Radiology [facility] [place] [address] 11/20/2025 11:45 AM EST Appointment [facility] Interventional Radiology [address] [place] [phone] 11/20/2025 12:45 PM EST Appointment [facility] Interventional Radiology [address] [place] [phone] 11/22/2025 1:00 PM EST Office Visit [facility] [address] [facility] [place] [address] Barrie Peterson MD [address] [place] [address] 11/28/2025 10:00 AM EST Appointment [facility] Interventional Radiology [address] [place] [phone] 11/28/2025 11:00 AM EST Appointment [facility] Interventional Radiology [address] [place] [phone] 12/05/2025 10:00 AM EST Appointment [facility] Interventional Radiology [address] [place] [phone] 12/05/2025 11:00 AM EST Appointment [facility] Interventional Radiology [address] [place] [phone] 12/20/2025 11:00 AM EST Office Visit [facility] [address] [place] [phone] Miranda Hobson P, STORE PROMOTER [address] [facility] [address] [place] [address] 03/07/2026 9:00 AM EDT Office Visit [facility] [address] [place] [phone] Grover Little MD [address] [place] [phone] Scheduled Orders Name Type Priority Associated Diagnoses Orde r Schedule Body Fluid Culture and Gram Stain - Pleural Right Microbiology Routine Once (Lab) for 1 Occurrences starting 10/03/2025 until 10/03/2025 documented as of this encounter Procedures Procedure Name Priority Date/Time Associated Diagnosis Comments US CHEST OR UPPER BACK REGION SOFT TISSUE Routine 10/03/2025 3:25 PM EST Pleural effusion US GUIDED ABDOMINAL PARACENTESIS Routine 10/03/2025 3:25 PM EST Abdominal ascites BODY FLUID CELL COUNT W/ MANUAL DIFFERENTIAL Routine 10/03/2025 2:39 PM EST BODY FLUID, CYTOSPIN, PATHOLOGIST INTERPRETATION Routine 10/03/2025 2:39 PM EST TOTAL PROTEIN, PERITONEAL FLUID Routine 10/03/2025 2:39 PM EST documented in this encounter Results * US Chest or Upper Back Region Soft Tissue (10/03/2025 3:25 PM EST) Anatomical Region Laterality Modality Chest, Spine Ultrasound Impressions 10/06/2025 11:50 AM EST Ultrasound guided thoracentesis not performed due to lack of safe percutaneous window and patient being asymptomatic. CRITICAL RESULT: No. COMMUNICATION: Per this written report. Preliminary report signed by SOLANGE Hall on 10/04/2025 10:20 AM By electronically signing this report, I, the attending physician, attest that I was present for the entire procedure(s) and agree with the final edited report. Drafted by SOLANGE Hall on 10/04/2025 10:17 AM Final report signed by Javier Oscar MD on 10/06/2025 11:50 AM Narrative 10/06/2025 11:50 AM EST CLINICAL INDICATION: This is a 65 y.o. 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 TECHNIQUE: Welder Plastic: ADRI Andersen Secondary Lead Cargoman: None. Rad Dose: NA Medications: Continuous physiologic monitoring provided by a qualified healthcare professional. Procedure: After discussion of risks and benefits, informed written consent was obtained. Appropriate time out was done to confirm patient identity and planned procedure. The patient was placed in left lateral decubitus position and initial limited right chest ultrasound scan performed. Limited chest ultrasound was performed, which showed an small anechoic fluid collection in the right pleural space with lung sliding. Ultrasound guided thoracentesis not performed due to lack of safe percutaneous window and patient being asymptomatic. The patient tolerated the procedure well. The patient left the IR suite in stable condition. COMPARISON: None. FINDINGS: Small right pleural fluid. COMPLICATION: No. Procedure Note Javier Oscar MD - 10/06/2025 CLINICAL INDICATION: This is a 65 y.o. female with a past medical history of with a pastmedical history of CKD, Depression, Hypoparathyroidism, JONATHAN Type 2diabetes mellitus, asthma, osteoarthritis and MASH cirrhosis complicatedby ascites and intermittent hepatic hydrothorax. TECHNIQUE: Welder Plastic: ADRI Andersen Secondary Lead Cargoman: None. Rad Dose: NA Medications: Continuous physiologic monitoring provided by a qualifiedhealthcare professional. Procedure: After discussion of risks and benefits, informed written consent wasobtained. Appropriate time out was done to confirm patient identity andplanned procedure. The patient was placed in left lateral decubitusposition and initial limited right chest ultrasound scan performed. Limited chest ultrasound was performed, which showed an small anechoicfluid collection in the right pleural space with lung sliding. Ultrasoundguided thoracentesis not performed due to lack of safe percutaneous windowand patient being asymptomatic. The patient tolerated the procedure well. The patient left the IR suitein stable condition. COMPARISON: None. FINDINGS: Small right pleural fluid. COMPLICATION: No. IMPRESSION: Ultrasound guided thoracentesis not performed due to lack of safepercutaneous window and patient being asymptomatic. CRITICAL RESULT: No. COMMUNICATION: Per this written report. Preliminary report signed by SOLANGE Hall on 510:20 AM By electronically signing this report, I, the attending physician, attestthat I was present for the entire procedure(s) and agree with the finaledited report. Drafted by SOLANGE Hall on 10/04/2025 10:17 AM Final report signed by Javier Oscar MD on 10/06/2025 11:50 AM us Marianna Gordon APRN IMG US PROCEDURES Final Resu lt * US Guided Abdominal Paracentesis (10/03/2025 3:25 PM EST) Anatomical Region Laterality Modality Abdomen Ultrasound Impressions 10/06/2025 11:49 AM EST Technically successful US-guided paracentesis. A total of 5 liters of clear yellow fluid was removed. A sample of the fluid was sent for laboratory analysis. Administered Albumin 37.5 g IV once post procedure CRITICAL RESULT: No. COMMUNICATION: Per this written report. Preliminary report signed by SOLANGE Hall on 10/04/2025 10:17 AM By electronically signing this report, I, the attending physician, attest that I was not present for the procedure(s) but agree with the final edited report. Drafted by SOLANGE Hall on 10/04/2025 10:14 AM Final report signed by Javier Oscar MD on 10/06/2025 11:49 AM Narrative 10/06/2025 11:49 AM EST CLINICAL INDICATION: This is a 65 y.o. 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 TECHNIQUE: Welder Plastic: ADRI Andersen Secondary Lead Cargoman: None. Rad Dose: NA Medications: Continuous physiologic monitoring provided by a qualified healthcare professional. Administered: 1% Lidocaine SQ. Antibiotics: NA Time out: 1430 Procedure: After discussion of risks and benefits, [...] permanent storage in PACS. A total of 5 liters of clear yellow fluid was removed. The centesis catheter was removed and occlusive dressing applied. The patient tolerated the procedure well. The patient left the IR suite in stable condition. COMPARISON: None. FINDINGS: Large volume ascites. COMPLICATION: No. Procedure Note Javier Oscar MD - 10/06/2025 CLINICAL INDICATION: This is a 65 y.o. female with a past medical history of with a pastmedical history of CKD, Depression, Hypoparathyroidism, JONATHAN Type 2diabetes mellitus, asthma, osteoarthritis and MASH cirrhosis complicatedby ascites and intermittent hepatic hydrothorax. TECHNIQUE: Welder Plastic: ADRI Andersen Secondary Lead Cargoman: None. Rad Dose: NA Medications: Continuous physiologic monitoring provided by a qualifiedhealthcare professional. Administered: 1% Lidocaine SQ. Antibiotics: NA Time out: 1430 Procedure: After discussion of risks and benefits, [...] to permanentstorage in PACS. A total of 5 liters of clear yellow fluid was removed.The centesis catheter was removed and occlusive dressing applied. The patient tolerated the procedure well. The patient left the IR suitein stable condition. COMPARISON: None. FINDINGS: Large volume ascites. COMPLICATION: No. IMPRESSION: Technically successful US-guided paracentesis. A total of 5 liters of clear yellow fluid was removed. A sample of the fluid was sent for laboratory analysis. Administered Albumin 37.5 g IV once post procedure CRITICAL RESULT: No. COMMUNICATION: Per this written report. Preliminary report signed by SOLANGE Hall on 0:17 AM By electronically signing this report, I, the attending physician, attestthat I was not present for the procedure(s) but agree with the finaledited report. Drafted by SOLANGE Hall on 10/04/2025 10:14 AM Final report signed by Javier Oscar MD on 10/06/2025 11:49 AM us Marianna Gordon STORE PROMOTER IMG US PROCEDURES Final Resu lt * Body fluid, cytospin, pathologist interpretation (10/03/2025 2:39 PM EST) Specimen Type Body Fluid LAB HEMATOLOGY METHOD 10/04/2025 5:14 PM EST [facility] Specimen Source, Body Fluid Peritoneal Fluid LAB HEMATOLOGY METHOD 10/04/2025 5:14 PM EST [facility] Clinical Diagnosis, Body Fluid Cirrhosis, ascites, right pleural effusion LAB HEMATOLOGY METHOD 10/04/2025 5:14 PM EST [facility] Interpretation , Body Fluid No evidence of malignancy Predominantly chronic inflammatory cells Lymphocytosis Light blood Occasional plasma cells A resident was involved in the service. I attest I examined the relevant preparations for the specimens and confirmed the diagnosis or interpretation. 10/04/2025 5:14 PM EST [facility] Pathologist Signature, Body Fluid 10/04/2025 5:14 PM EST [facility] Comment:Reviewed by: Kadie dobbs MD LAB CP ASR DISCLAIMER Yes 10/04/2025 5:14 PM EST [facility] Body Fluid Peritoneal fluid / Unknown Non-blood Collection / Unknown 10/03/2025 2:39 PM EST 10/03/2025 3:24 PM EST us Preeti Andersen APRN LAB BODY FLUIDS AND STO OLS ORDERABLES Final Result [facility] [address] [place] [address] * Protein - Ascites (10/03/2025 2:39 PM EST) Total Protein, Fluid 0.9 g/dL 10/03/2025 7:00 PM EST [facility] Ascites Peritoneal cavity structure / Unknown 10/03/2025 2:39 PM EST 10/03/2025 3:24 PM EST Narrative [facility] - 10/03/2025 7:00 PM EST This test was developed and its performance characteristics determined by [facility]. The U.S. Food and Drug Administration has not approved or cleared this test. However, FDA clearance or approval is not currently required for clinical use. The results are not intended to be used as the sole means for clinical diagnosis or patient management decisions. Preeti Andersen STORE PROMOTER LAB BODY FLUIDS AND STO OLS ORDERABLES Final Result [facility] [address] [place] [address] * (ABNORMAL) Body Fluid Cell Count With Diff - Ascites (10/03/2025 2:39 PM EST) Color, Body fluid [place] LAB HEMATOLOGY METHOD 10/03/2025 9:38 PM EST [facility] Appearance, Body fluid Cloudy(A) LAB HEMATOLOGY METHOD 10/03/2025 9:38 PM EST [facility] Volume, Body fluid 30.0 cc LAB HEMATOLOGY METHOD 10/03/2025 9:38 PM EST [facility] Fluid Container Specimen received in miscellaneous container LAB HEMATOLOGY METHOD 10/03/2025 9:38 PM EST [facility] Red Blood Cell Count, Body fluid 5,000 uL LAB HEMATOLOGY METHOD 10/03/2025 9:38 PM EST [facility] Total Nucleated Cell Count, Body fluid 98 uL LAB HEMATOLOGY METHOD 10/03/2025 9:38 PM EST [facility] Neutrophils %, Body fluid 2 % LAB HEMATOLOGY METHOD 10/03/2025 9:38 PM EST [facility] Lymphocytes %, Body fluid 77 % LAB HEMATOLOGY METHOD 10/03/2025 9:38 PM EST [facility] Monocytes/Macr ophages %, Body fluid 21 % LAB HEMATOLOGY METHOD 10/03/2025 9:38 PM EST [facility] Eosinophils %, Body fluid 0 % LAB HEMATOLOGY METHOD 10/03/2025 9:38 PM EST [facility] Lining/Mesothe lial Cells %, Body fluid 0 % LAB HEMATOLOGY METHOD 10/03/2025 9:38 PM EST [facility] Neutrophils Absolute (PMN), Body fluid 2 uL LAB HEMATOLOGY METHOD 10/03/2025 9:38 PM EST [facility] Lymphocytes Absolute, Body fluid 75 uL LAB HEMATOLOGY METHOD 10/03/2025 9:38 PM EST [facility] Monocytes/Macr ophages Absolute, Body fluid 21 uL LAB HEMATOLOGY METHOD 10/03/2025 9:38 PM EST [facility] Eosinophils Absolute, Body fluid 0 uL LAB HEMATOLOGY METHOD 10/03/2025 9:38 PM EST [facility] Basophils Absolute, Body fluid 0 uL LAB HEMATOLOGY METHOD 10/03/2025 9:38 PM EST [facility] Lining/Mesothe lial Cells Absolute, Body fluid 0 uL LAB HEMATOLOGY METHOD 10/03/2025 9:38 PM EST [facility] Basophils %, Body fluid 0 % LAB HEMATOLOGY METHOD 10/03/2025 9:38 PM EST [facility] Body Fluid Peritoneal fluid / Unknown Non-blood Collection / Unknown 10/03/2025 2:39 PM EST 10/03/2025 3:24 PM EST Preeti Andersen APRN LAB BODY FLUIDS AND STOOLS ORDERABLES NO SPECIMEN TYPE/SOURCE Final Result [facility] [address] [place] [address] documented in this encounter Visit Diagnoses Diagnosis Abdominal ascites Pleural effusion Unspecified pleural effusion documented in this encounter Administered Medications Inactive Administered Medications - up to 3 most recent administrations Medication Order MAR Action Action Date Dose Rate Site albumin human 25 % infusion 37.5 g 37.5 g, Intravenous, Once as needed, 1 dose, Starting on Sarahi 10/03/25 at 1437, Until Sarahi 10/03/25 at 1450, Routine, Intraprocedure, For 5-6.9 L drained New Bag 10/03/2025 2:50 PM EST 37.5 g lidocaine 1% in sodium bicarbonate (buffered lidocaine)10 mL 10 mL, Infiltration, Once, 1 dose, On Sarahi 10/03/25 at 1515, Routine, Holding - Preprocedure Given 10/03/2025 2:31 PM EST 10 mL documented in this encounter Additional Health Concerns Assessment Noted Time PHQ-9 Depression Total Score: 24 025 8:56 AM EDT A fall risk assessment has been complete d for the patient 09/17/2025 11:06 AM EDT A Body Mass Index follow-up plan has been documented for the patient 09/26/2025 9:18 AM EST documented as of this encounter Care Teams Electric Razor Assembler Relationship Specialty Start Date End Date Lillie Pritchard MD [address] [place] [id number] PCP - General Family Medicine 09/03/25 Lea Fernando [address] [facility] [address] [place] [phone] Brazing Machine Operator Automatic Endocrinology 08/29/24 Rachel Ray, RN [address] [facility] [address] [place] [phone] Nurse Practitioner Gastroenterology 09/24/24 Tamera Isabel LPN VALUE-BASED TRANSFORMATION PROGRAM None Licensed Practical Nurse 05/29/25 documented as of this encounter
--- OUTSIDE RECORDS SUMMARY | 2025-10-30 06:38 | XMS_ITS | Encounter Summary ---
Author Organization [facility] Address [address] [place] [address] Care Team Providers Care Pile Driver Operator Barge Mounted Name Role Phone Lea Fernando Unavailable [phone] Rachel Ray RN Unavailable [phone] Tamera Isabel LPN Unavailable Unavailabl e Lillie Pritchard MD Primary Care Provider [phone] Reason for Referral * Clinic-Administered Medication (Routine) - Closed Specialty Diagnoses / Procedures Referred By Eder zhu Referred To Contact Diagnoses Other ascites Procedures MI ABDOM PARACENTESIS DX/THER W IMAGING GUIDANCE Shaniqua Mccurdy APRN [address] [place] [address] Phone: tel: fax: [facility] [address] [place] [address] Phone: tel: fax: Referral ID Status Reason Start Date Expiration Date Visits Re quested Visits Authorized [id number] Closed 10/30/2025 05/01/2027 1 1 * Imaging (Routine) - Closed Specialty Diagnoses / Procedures Referred By Contac t Referred To Contact Radiology Diagnoses Other ascites Procedures US Guided Abdominal Paracentesis Marianna Gordon APRN [address] [place] [address] Phone: tel: fax: Referral ID Status Reason Start Date Expiration Date Visits Re quested Visits Authorized [id number] Closed 10/24/2025 04/25/2027 1 1 Reason for Visit * Imaging (Routine) - Closed Specialty Diagnoses / Procedures Referred By Eder zhu Referred To Contact Radiology Diagnoses Other ascites Procedures US Guided Abdominal Paracentesis Marianna Gordon APRN [address] [place] [address] Phone: tel: fax: Referral ID Status Reason Start Date Expiration Date Visits Re quested Visits Authorized [id number] Closed 10/24/2025 04/25/2027 1 1 Encounter Details Date Type Department Care Team (Late st Contact Info) Description 10/30/2025 6:38 AM EST - 10/30/2025 11:59 PM EST Hospital Encounter [facility] Interventional Radiology [address] [place] [address] Kandice Silva RN [facility]-V[facility]ULAR & INTERVENTIONAL RADIOLOGY None Other ascites Discharge Disposition: Home or [...] week 01/10/2025 How often do you attend [facility] center or congregational services? Patient unable to answer [...] afraid of your partner or ex-partner? No 10/11/2025 Within the last year, have y ou been humiliated or emotionally abused in other ways by your partner or ex-partner? No Within the last year, have y ou been kicked, hit, slapped, or otherwise physically hurt by your partner or ex-partner? No 10/11/2025 Within the last year, have y ou been raped or forced to have any kind of sexual activity by your partner or ex-partner? No 10/11/2025 Social Connection and Isolation Panel Answer Date [...] more drinks on one occasion? Never 09/03/2025 [facility] [...] the money to buy more. Never true 10/11/20 25 Within the past 12 months, t he food you bought just didn't last and you didn't have money to get more. Never true 10/11/2025 PRAPARE - Transportation Answer Date Re corded In the past 12 months, has l ack of transportation kept you from medical appointments or from getting medications? No 09/22 In the past 12 months, has l ack of transportation kept you from meetings, work, or from getting things needed for daily living? No 10/11/2025 Housing Stability Vital Sign Answer Rajesh e Recorded In the last 12 months, was t here a time when you were not able to pay the mortgage or rent on time? No 10/11/2025 Number of Times Moved in the Last Year Not on fi le 10/11/2025 At any time in the past 12 m [facility], were you homeless or living in a detention (including now)? No 10/11/2025 [facility] Utilities Answer Date Recorded In the past 12 months has th e electric, gas, oil, or water company threatened to shut off services in your home? No 10/11/2025 CAGE ASSESSMENT Answer Date Recorded Cage unable [...] drink first t kennedy in the morning (EYE-FRAMING MANAGER) to steady your nerves or to [...] Sign Reading Time Taken Comments Blood Pressure 123/57 10/30/2025 8:45 AM EST Pulse 86 10/30/2025 8:45 AM EST Temperature 36.4 C (97.5 F) 10/30/2025 8:45 AM EST Respiratory Rate 14 10/30/2025 8:45 AM EST Oxygen Saturation 97% 10/30/2025 8:45 AM EST Inhaled Oxygen Concentration - - Weight 78 kg (171 lb 15.3 oz) 10/30/2025 7:19 A M EST Height 165.1 cm (5' 5 ) 10/30/2025 7:19 AM EST Body Mass Index 28.62 10/30/2025 7:19 AM EST documented in this encounter Discharge Instructions * Discharge Instructions* Kandice Silva RN - 10/30/2025 8:10 AM EST *Interventional Radiology* (IR) Questions/Concerns & Appointments If there are questions or concerns after discharge please call: Vascular & Interventional Radiology Clinic at [phone] Tuesday - Tuesday 8:00 AM to 4:30 PM After hours, weekends, and holidays please call [phone] and ask for the Interventional Radiology provider/Resident on-call For Emergencies please go to the nearest Emergency Room or dial 911. Intervention Radiology Appointments: If you need to reschedule a procedure, please call our Schedulers at [phone], option [phone]. If you need to schedule or reschedule a clinic appointment, please call [phone]. [facility] Vascular and Interventional Radiology Clinic [facility] [address] [place] [address] documented in this encounter Medications at Time of Discharge acetaminophen (Tylenol) 500 MG tablet Take 1 tablet by mouth every 8 hours as needed for pain, headaches or fever. 10/23/2025 bumetanide (Bumex) 0.5 MG tablet Take 1 [...] left ankle ergocalciferol (Vitamin D-2) 1.25 MG (58365 UT) capsule Take 1 capsule by mouth 1 time per week. hydrocortisone (Cortef) 5 MG tablet Take 1 tablet by mouth every evening AND 4 tablets 1 (one) time each day at the same time. 10/23/2025 insulin glargine-yfgn 100 UNIT/ML injection vial Inject 40 Units under the skin daily. 10/24/2025 insulin lispro (Admelog) 100 UNIT/ML injection Inject 0-10 Units under the skin 3 times a day with meals. See After Visit Summary for instructions on how to take your insulin. 07/09/2025 Insulin Lispro (Admelog, HumaLOG) 100 UNIT/ML injection vial Inject 10 Units under the skin 3 times a day with meals. 10/23/2025 lactulose (Chronulac) 10 GM/15ML solution Take 30 mL by mouth 3 times a day. 2700 mL 11 05/07/2025 Magnesium Oxide, Laxative, 500 MG tabletIndications :Hypomagnesemia Take 1 tablet by mouth daily. 90 tablet 3 04/01/2025 midodrine (Proamatine) 5 MG tablet Take 1 tablet by mouth 3 times a day. 10/23/2025 Multiple Vitamins-Minerals (COMPLETE WOMENS PO) Take 1 tablet by mouth in the morning. 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 60 tablet 11 06/03/2025 senna (Senokot) 8.6 MG tablet Take 1 tablet by mouth nightly. 07/09/2025 sertraline (Zoloft) 25 MG tabletIndications :Anxiety disorder, unspecified type Take 1 tablet by mouth daily. 90 tablet 1 09/03/2025 sodium bicarbonate 650 MG tablet Take 1 tablet by mouth 4 times a day. 10/23/2025 documented as of this encounter Miscellaneous Notes * Kandice Gamez RN - 10/30/2025 8:11 AM EST Images from the original note were not included. [id number] Discharge Instructions for Thoracentesis Thoracentesis is a [...] blood. Last Reviewed Date: 2025 00:00:00 ?? [id number] [employer]. All rights reserved. This information is not intended as a substitute for professional medical care. Always follow your healthcare professional's instructions. * Kandice Gamez RN - 10/30/2025 8:10 AM EST Images from the original note were not included. [id number] Discharge Instructions for Paracentesis Paracentesis is a [...] fainting. Last Reviewed Date: 2025 00:00:00 ?? [id number] [employer]. All rights reserved. This information is not intended as a substitute for professional medical care. Always follow your healthcare professional's instructions. * Post-Procedure Note - Shaniqua Mccurdy APRN - 10/30/2025 8:00 AM EST Vascular and Interventional Radiology Brief [...] Post-Procedure Note - Shaniqua Mccurdy APRN - 10/30/2025 8:00 AM EST Vascular and Interventional Radiology Brief Postprocedure Note No thoracentesis completed, significantly reduce in size of pleural effusion with lungs sliding in and out of window. documented in this encounter Plan of Treatment Upcoming Encounters Date Type Department Care Team (Late st Contact Info) Description 11/13/2025 1:00 PM EST Appointment [facility] Interventional Radiology [address] [place] [address] 11/13/2025 2:00 PM EST Appointment [facility] [address] [facility] [place] [address] 11/20/2025 11:45 AM EST Appointment [facility] Interventional Radiology [address] [place] [address] 11/20/2025 12:45 PM EST Appointment [facility] Interventional Radiology [address] [facility] [address] 11/22/2025 1:00 PM EST Office Visit [facility] [address] [place] [address] Barrie Peterson MD [address] [place] [address] 11/28/2025 10:00 AM EST Appointment [facility] Interventional Radiology [address] [place] [address] 11/28/2025 11:00 AM EST Appointment [facility] Inter[facility] Radiology [address] [place] [address] 12/05/2025 10:00 AM EST Appointment [facility] Inter[facility] Radiology [address] [place] [address] 12/05/2025 11:00 AM EST Appointment [facility] Interventional Radiology [address] [place] [address] 12/20/2025 11:00 AM EST Office Visit [facility] Endocrinology [address] [place] [address] Miranda Hobson P, CAR MECHANIC HELPER [address] [facility] [address] [place] [id number] 03/07/2026 9:00 AM EDT [facility] [address] [place] [address] Grover Little MD [address] [place] [address] documented as of this encounter Procedures Procedure Name Priority Date/Time Associated Diagnosis Comments US GUIDED ABDOMINAL PARACENTESIS Routine 10/30/2025 8:39 AM EST Other ascites US CHEST Routine 10/30/2025 8:39 AM EST Other ascites TOTAL PROTEIN, PERITONEAL FLUID Routine 10/30/2025 7:55 AM EST GLUCOSE, PERITONEAL FLUID Routine 10/30/2025 7:55 AM EST BODY FLUID CELL COUNT W/ MANUAL DIFFERENTIAL Routine 10/30/2025 7:54 AM EST BODY FLUID, CYTOSPIN, PATHOLOGIST INTERPRETATION Routine 10/30/2025 7:54 AM EST documented in this encounter Results * US Chest (10/30/2025 8:39 AM EST) Anatomical Region Laterality Modality Chest Ultrasound Impressions 10/30/2025 10:04 AM EST Small to moderate right pleural effusion, significantly decreased compared to prior. Lung sliding into window. Will re-evaluate for therapeutic thoracentesis next week at scheduled outpatient appointment. Pt currently denies cough of SOB. CRITICAL RESULT: No. COMMUNICATION: Per this written report. Preliminary report signed by SOLANGE Singleton on 10/30/2025 9:57 AM By electronically signing this report, I, the attending physician, attest that I was not present for the procedure(s) but agree with the final edited report. Drafted by SOLANGE Singleton on 10/30/2025 9:55 AM Final report signed by Ck Palacios MD on 10/30/2025 10:04 AM Narrative 10/30/2025 10:04 AM EST CLINICAL INDICATION: Pleural effusion TECHNIQUE: The original examination requested was thoracentesis; however, the study was not performed. COMPARISON: None. FINDINGS: Small to moderate right pleural effusion. Procedure Note Ck Palacios MD - 10/30/2025 CLINICAL INDICATION: Pleural effusion TECHNIQUE: The original examination requested was thoracentesis; however, the studywas not performed. COMPARISON: None. FINDINGS: Small to moderate right pleural effusion. IMPRESSION: Small to moderate right pleural effusion, significantly decreased comparedto prior. Lung sliding into window. Will re-evaluate for therapeuticthoracentesis next week at scheduled outpatient appointment. Pt currently denies cough of SOB. CRITICAL RESULT: No. COMMUNICATION: Per this written report. Preliminary report signed by SOLANGE Singleton on 10/30/2025 9:57 AM By electronically signing this report, I, the attending physician, attestthat I was not present for the procedure(s) but agree with the finaledited report. Drafted by SOLANGE Singleton on 10/30/2025 9:55 AM Final report signed by Ck Palacios MD on 10/30/2025 10:04 AM us Marianna Dixon Gordon CAR MECHANIC HELPER IMG US PROCEDURES Final Resu lt * US Guided Abdominal Paracentesis (10/30/2025 8:39 AM EST) Anatomical Region Laterality Modality Abdomen Ultrasound Impressions 10/30/2025 10:04 AM EST Technically successful US-guided paracentesis. A total of 6 liters of clear yellow fluid was removed. A sample of the fluid was sent for laboratory analysis. Administered Albumin 37.5 g IV once post procedure CRITICAL RESULT: No. COMMUNICATION: Per this written report. Preliminary report signed by SOLANGE Singleton on 10/30/2025 9:59 AM By electronically signing this report, I, the attending physician, attest that I was not present for the procedure(s) but agree with the final edited report. Drafted by SOLANGE Singleton on 10/30/2025 9:57 AM Final report signed by Ck Palacios MD on 10/30/2025 10:04 AM Narrative 10/30/2025 10:04 AM EST CLINICAL INDICATION: Ascites. TECHNIQUE: Lot Attendant: Shaniqua Mccurdy APRN Secondary Concrete Engineering Technician: None. Rad Dose: NA Medications: Continuous physiologic monitoring provided by a qualified healthcare professional. Administered: 1% Lidocaine SQ. Antibiotics: NA Time out: 0750 Procedure: After discussion of risks and benefits, [...] permanent storage in PACS. A total of 6 liters of clear yellow fluid was removed. The centesis catheter was removed and occlusive dressing applied. The patient tolerated the procedure well. The patient left the IR suite in stable condition. COMPARISON: None. FINDINGS: Large volume ascites. COMPLICATION: No. Procedure Note Ck Palacios MD - 10/30/2025 CLINICAL INDICATION: Ascites. TECHNIQUE: Lot Attendant: Shaniqua Mccurdy APRN Secondary Concrete Engineering Technician: None. Rad Dose: NA Medications: Continuous physiologic monitoring provided by a qualifiedhealthcare professional. Administered: 1% Lidocaine SQ. Antibiotics: NA Time out: 0750 Procedure: After discussion of risks and benefits, [...] to permanentstorage in PACS. A total of 6 liters of clear yellow fluid was removed.The centesis catheter was removed and occlusive dressing applied. The patient tolerated the procedure well. The patient left the IR suitein stable condition. COMPARISON: None. FINDINGS: Large volume ascites. COMPLICATION: No. IMPRESSION: Technically successful US-guided paracentesis. A total of 6 liters of clear yellow fluid was removed. A sample of the fluid was sent for laboratory analysis. Administered Albumin 37.5 g IV once post procedure CRITICAL RESULT: No. COMMUNICATION: Per this written report. Preliminary report signed by SOLANGE Singleton on 10/30/2025 9:59 AM By electronically signing this report, I, the attending physician, attestthat I was not present for the procedure(s) but agree with the finaledited report. Drafted by SOLANGE Singleton on 10/30/2025 9:57 AM Final report signed by Ck Palacios MD on 10/30/2025 10:04 AM us Marianna Gordon CAR MECHANIC HELPER IMG US PROCEDURES Final Resu lt * Glucose - Ascites (10/30/2025 7:55 AM EST) Glucose, Fluid 448 mg/dL 10/30/2025 10:17 AM EST [facility] Peritoneal Fluid Peritoneal cavity structure / Unknown Non-blood Collection / Unknown 10/30/2025 7:55 AM EST 10/30/2025 8:59 AM EST Narrative [facility] - 10/30/2025 10:17 AM EST Peritoneal/Ascites No established reference interval. [...] O RDERABLES Final Result Performing Organization Address [facility] Co de Phone Number [facility] [address] [place] [address] * Protein - Ascites (10/30/2025 7:55 AM EST) Total Protein, Fluid 0.8 g/dL 10/30/2025 10:17 AM EST [facility] Peritoneal Fluid Peritoneal cavity structure / Unknown Non-blood Collection / Unknown 10/30/2025 7:55 AM EST 10/30/2025 8:59 AM EST Narrative [facility] - 10/30/2025 10:17 AM EST This test was developed and its performance characteristics determined by [facility]. The U.S. Food and Drug Administration has not approved or cleared this test. However, FDA clearance or approval is not currently required for clinical use. The results are not intended to be used as the sole means for clinical diagnosis or patient management decisions. Shaniqua Mccurdy APRN LAB BODY FLUIDS AND STOOLS O RDERABLES Final Result Performing Organization Address [facility] Co de Phone Number [facility] [address] [place] [address] * Body fluid, cytospin, pathologist interpretation (10/30/2025 7:54 AM EST) Specimen Type Body Fluid LAB HEMATOLOGY METHOD 10/31/2025 10:14 AM EST [facility] Specimen Source, Body Fluid Peritoneal Fluid LAB HEMATOLOGY METHOD 10/31/2025 10:14 AM EST [facility] Clinical Diagnosis, Body Fluid Cirrhosis, ascites LAB HEMATOLOGY METHOD 10/31/2025 10:14 AM EST [facility] Interpretation , Body Fluid A resident was involved in the service. I attest I examined the relevant preparations for the specimens and confirmed the diagnosis or interpretation. 10/31/2025 10:14 AM EST [facility] Pathologist Signature, Body Fluid 10/31/2025 10:14 AM EST [facility] Comment:Reviewed by: Onur Roque MD LAB CP ASR DISCLAIMER Yes 10/31/2025 10:14 AM EST [facility] Specimen Source, Other Free Text No morphologic evidence of malignancy. Predominantly chronic inflammatory cells and moderate blood. 10/31/2025 10:14 AM EST [facility] Body Fluid Peritoneal fluid / Unknown Non-blood Collection / Unknown 10/30/2025 7:54 AM EST 10/30/2025 8:59 AM EST us Shaniqua Mccurdy CAR MECHANIC HELPER LAB BODY FLUIDS AND STOOLS O RDERABLES Final Result [facility] [address] [place] [address] * (ABNORMAL) Body Fluid Cell Count With Diff - Ascites (10/30/2025 7:54 AM EST) Color, Body fluid Yellow LAB HEMATOLOGY METHOD 10/30/2025 10:49 AM [facility] Appearance, Body fluid Cloudy(A) LAB HEMATOLOGY METHOD 10/30/2025 10:49 AM [facility] Volume, Body fluid 6.0 cc LAB HEMATOLOGY METHOD 10/30/2025 10:49 AM [facility] Fluid Container Tube 1 LAB HEMATOLOGY METHOD 10/30/2025 10:49 AM [facility] Red Blood Cell Count, Body fluid 6,000 uL LAB HEMATOLOGY METHOD 10/30/2025 10:49 AM [facility] Total Nucleated Cell Count, Body fluid 62 uL LAB HEMATOLOGY METHOD 10/30/2025 10:49 AM [facility] Neutrophils %, Body fluid 10 % LAB HEMATOLOGY METHOD 10/30/2025 10:49 AM [facility] Lymphocytes %, Body fluid 51 % LAB HEMATOLOGY METHOD 10/30/2025 10:49 AM [facility] Monocytes/Macro phages %, Body fluid 39 % LAB HEMATOLOGY METHOD 10/30/2025 10:49 AM [facility] Eosinophils %, Body fluid 0 % LAB HEMATOLOGY METHOD 10/30/2025 10:49 AM [facility] Lining/Mesothel ial Cells %, Body fluid 0 % LAB HEMATOLOGY METHOD 10/30/2025 10:49 AM [facility] Neutrophils Absolute (PMN), Body fluid 6 uL LAB HEMATOLOGY METHOD 10/30/2025 10:49 AM [facility] Lymphocytes Absolute, Body fluid 32 uL LAB HEMATOLOGY METHOD 10/30/2025 10:49 AM EST [facility] Monocytes/Macro phages Absolute, Body fluid 24 uL LAB HEMATOLOGY METHOD 10/30/2025 10:49 AM EST [facility] Eosinophils Absolute, Body fluid 0 uL LAB HEMATOLOGY METHOD 10/30/2025 10:49 AM EST [facility] Basophils Absolute, Body fluid 0 uL LAB HEMATOLOGY METHOD 10/30/2025 10:49 AM EST [facility] Lining/Mesothel ial Cells Absolute, Body fluid 0 uL LAB HEMATOLOGY METHOD 10/30/2025 10:49 AM EST [facility] Basophils %, Body fluid 0 % LAB HEMATOLOGY METHOD 10/30/2025 10:49 AM EST [facility] Body Fluid Peritoneal fluid / Unknown Non-blood Collection / Unknown 10/30/2025 7:54 AM EST 10/30/2025 8:59 AM EST Shaniqua Mccurdy CAR MECHANIC HELPER LAB BODY FLUIDS AND STOOLS ORDERABLES NO SPECIMEN TYPE/SOURCE Final Result [facility] [address] [place] [address] documented in this encounter Visit Diagnoses Diagnosis Other ascites documented in this encounter Administered Medications Inactive Administered Medications - up to 3 most recent administrations Medication Order MAR Action Action Date Dose Rate Site albumin human 25 % infusion 37.5 g 37.5 g, Intravenous, Once as needed, 1 dose, Starting on Tue10/30/25 at 0720, Until Tue10/30/25 at 0744, Routine, Intraprocedure, For 5-6.9 L drained New Bag 10/30/2025 7:44 AM EST 37.5 g lidocaine 0.9% in sodium bicarbonate (buffered lidocaine) solution solution As needed, Starting on Tue10/30/25 at 0752, Until Tue10/30/25 at 0752, Routine, Intraprocedure Given 10/30/2025 7:52 AM EST 10 mL Abdominal Tissue documented in this encounter Additional Health Concerns Assessment Noted Time PHQ-9 Depression Total Score: 24 09/03/2 025 8:56 AM EDT A fall risk assessment has been complete d for the patient 09/17/2025 11:06 AM EDT A Body Mass Index follow-up plan has been documented for the patient 10/23/2025 4:16 PM EST documented as of this encounter Care Teams Pile Driver Operator Barge Mounted Relationship Specialty Start Date End Date Lillie Pritchard MD [address], [place] [id number] PCP - General Family Medicine 09/03/25 Lea Fernando [address] [place] [address] Living Manager Endocrinology 08/29/24 Rachel Ray RN [address] [facility] [address] [place] [address] Nurse Practitioner Gastroenterology 09/24/24 Tamera Isabel, MG VALUE-BASED TRANSFORMATION PROGRAM None Licensed Practical Nurse 05/29/25 documented as of this encounter
--- OUTSIDE RECORDS SUMMARY | 2025-11-06 06:24 | XMS_ITS | Encounter Summary ---
Author Organization [facility] Address [address] [place] [address] Care Team Providers Care Health Information Administrator Name Role Phone Lea Fernando Unavailable [phone] Rachel Ray RN Unavailable [phone] Tamera Isabel LPN Unavailable Unavailabl e Lillie Pritchard MD Primary Care Provider [phone] Reason for Referral * Clinic-Administered Medication (Routine) - Closed Specialty Diagnoses / Procedures Referred By Eder zhu Referred To Contact Diagnoses Other ascites Procedures NM ABDOM PARACENTESIS DX/THER W IMAGING GUIDANCE Shaniqua Mccurdy APRN [address] [place] [address] Phone: tel: fax: [facility] [address] [place] [address] Phone: tel: fax: Referral ID Status Reason Start Date Expiration Date Visits Re quested Visits Authorized [id number] Closed 11/06/2025 05/08/2027 1 1 * Imaging (Routine) - Closed Specialty Diagnoses / Procedures Referred By Contac t Referred To Contact Radiology Diagnoses Other ascites Procedures US Guided Abdominal Paracentesis Marianna Gordon APRN [address] [place] [address] Phone: tel: fax: Referral ID Status Reason Start Date Expiration Date Visits Re quested Visits Authorized [id number] Closed 10/24/2025 04/25/2027 1 1 Reason for Visit * Imaging (Routine) - Closed Specialty Diagnoses / Procedures Referred By Eder zhu Referred To Contact Radiology Diagnoses Other ascites Procedures US Guided Abdominal Paracentesis Marianna Gordon APRN [address] [place] [address] Phone: tel: fax: Referral ID Status Reason Start Date Expiration Date Visits Re quested Visits Authorized [id number] Closed 10/24/2025 04/25/2027 1 1 Encounter Details Date Type Department Care Team (Latest Contact Info) Description 11/06/2025 6:24 AM EST - 11/06/2025 11:59 PM EST Hospital Encounter [facility] Interventional Radiology [address] [place] [address] Emily Black RN None None Other ascites Discharge Disposition: Home or [...] you attend [facility] or [facility] services? Patient unable to [...] more drinks on one occasion? Never 09/03/2025 [facility] [...] living in a fpc (including now)? No 10/11/2025 [facility] Utilities Answer Date Recorded In the [...] drink first t kennedy in the morning (EYE-PRINCIPAL EXAMINER) to steady your nerves or to [...] Sign Reading Time Taken Comments Blood Pressure 102/52 11/06/2025 8:55 AM EST Pulse 81 11/06/2025 8:55 AM EST Temperature 36.3 C (97.3 F) 11/06/2025 8:42 AM EST Respiratory Rate 14 11/06/2025 8:55 AM EST Oxygen Saturation 96% 11/06/2025 8:55 AM EST Inhaled Oxygen Concentration - - Weight 83.5 kg (184 lb 1.4 oz) 11/06/2025 6:57 A M EST Height 165.1 cm (5' 5 ) 11/06/2025 6:57 AM EST Body Mass Index 30.63 11/06/2025 6:57 AM EST documented in this encounter Medications at Time [...] left ankle ergocalciferol (Vitamin D-2) 1.25 MG (82466 UT) capsule Take 1 capsule by mouth [...] Note - Micheal Glasgow APRN, DNP - 11/06/2025 8:00 AM EST Vascular and Interventional Radiology [...] Appointment [facility] Inter[facility] Radiology [address] [place] [address] 11/13/2025 2:00 PM EST Appointment [facility] [address] [place] [address] 11/20/2025 11:45 AM EST Appointment [facility] [address] [place] [address] 11/20/2025 12:45 PM EST Appointment [facility] [address] [place] [address] 11/22/2025 1:00 PM EST Office Visit [facility] [address] [place] [address] Barrie Peterson MD [address] [place] [address] 11/28/2025 10:00 AM EST Appointment [facility] [address] [place] [address] 11/28/2025 11:00 AM EST Appointment [facility] [address] [place] [address] 12/05/2025 10:00 AM EST Appointment [facility] [address] [place] [address] 12/05/2025 11:00 AM EST Appointment [facility] [address] [place] [address] 12/20/2025 11:00 AM EST Office Visit [facility] Endocrinology [address] [place] [address] Miranda Hobson P, ELECTRICIAN HELPER [address] [facility] [address] [place] [address] 03/07/2026 9:00 AM EDT Office Visit [facility] [address] [place] [address] Grover Little MD [address] [place] [address] documented as of this encounter Procedures Procedure Name Priority Date/Time Associated Diagnosis Comments US GUIDED ABDOMINAL PARACENTESIS Routine 11/06/2025 8:37 AM EST Other ascites US CHEST Routine 11/06/2025 8:37 AM EST Other ascites BODY FLUID CELL COUNT W/ MANUAL DIFFERENTIAL Routine 11/06/2025 8:06 AM EST BODY FLUID, CYTOSPIN, PATHOLOGIST INTERPRETATION Routine 11/06/2025 8:06 AM EST TOTAL PROTEIN, PERITONEAL FLUID Routine 11/06/2025 8:00 AM EST GLUCOSE, PERITONEAL FLUID Routine 11/06/2025 8:00 AM EST documented in this encounter Results * US Chest (11/06/2025 8:37 AM EST) Anatomical Region Laterality Modality Chest Ultrasound Impressions 11/06/2025 3:34 PM EST Small right pleural effusion. No thoracentesis completed CRITICAL RESULT: No. COMMUNICATION: Per this written report. Preliminary report signed by SOLANGE Toure on 11/06/2025 10:15 AM By electronically signing this report, I, the attending physician, attest that I was not present for the procedure(s) but agree with the final edited report. Drafted by SOLANGE Toure on 11/06/2025 10:14 AM Final report signed by Marcel Magaña MD on 11/06/2025 3:34 PM Narrative 11/06/2025 3:34 PM EST CLINICAL INDICATION: Pleural effusion TECHNIQUE: The original examination requested was thoracentesis; however, the study was not performed. COMPARISON: None. FINDINGS: Small right pleural effusion. Procedure Note Marcel Magaña MD - 11/06/2025 CLINICAL INDICATION: Pleural effusion TECHNIQUE: The original examination requested was thoracentesis; however, the studywas not performed. COMPARISON: None. FINDINGS: Small right pleural effusion. IMPRESSION: Small right pleural effusion. No thoracentesis completed CRITICAL RESULT: No. COMMUNICATION: Per this written report. Preliminary report signed by SOLANGE Toure on 11/06/2025 10:15 AM By electronically signing this report, I, the attending physician, attestthat I was not present for the procedure(s) but agree with the finaledited report. Drafted by SOLANGE Toure on 11/06/2025 10:14 AM Final report signed by Marcel Magaña MD on 11/06/2025 3:34 PM us Marianna Gordon ELECTRICIAN HELPER IMG US PROCEDURES Final Resu lt * US Guided Abdominal Paracentesis (11/06/2025 8:37 AM EST) Anatomical Region Laterality Modality Abdomen Ultrasound Impressions 11/06/2025 3:34 PM EST Technically successful US-guided paracentesis. A total of 7.2 liters of clear yellow fluid was removed. A sample of the fluid was sent for laboratory analysis. Administered Albumin 50 g IV once post procedure CRITICAL RESULT: No. COMMUNICATION: Per this written report. Preliminary report signed by SOLANGE Toure on 11/06/2025 10:16 AM By electronically signing this report, I, the attending physician, attest that I was not present for the procedure(s) but agree with the final edited report. Drafted by SOLANGE Toure on 11/06/2025 10:15 AM Final report signed by Marcel Magaña MD on 11/06/2025 3:34 PM Narrative 11/06/2025 3:34 PM EST CLINICAL INDICATION: Gabi Zimmer is a 65 y.o. 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 Rad Dose: NA Medications: Continuous physiologic monitoring provided by a qualified healthcare professional. Administered: 1% Lidocaine SQ. Antibiotics: NA Time out: 0752 Procedure: After discussion of risks and benefits, [...] permanent storage in PACS. A total of 7.2 liters of clear yellow fluid was removed. The centesis catheter was removed and occlusive dressing applied. The patient tolerated the procedure well. The patient left the IR suite in stable condition. COMPARISON: None. FINDINGS: Large volume ascites. COMPLICATION: No. Procedure Note Marcel Magaña MD - 11/06/2025 CLINICAL INDICATION: Gabi Zimmer is a 65 y.o. female with a PMHx of NAIDU cirrhosisdecompensated by ascites, hepatic hydrothorax, hepatic encephalopathy,esophageal varices TECHNIQUE: Campus Recruiter: ADRI Glasgow Secondary Sewer Contractor: None. Rad Dose: NA Medications: Continuous physiologic monitoring provided by a qualifiedhealthcare professional. Administered: 1% Lidocaine SQ. Antibiotics: NA Time out: 0752 Procedure: After discussion of risks and benefits, [...] topermanent storage in PACS. A total of 7.2 liters of clear yellow fluidwas removed. The centesis catheter was removed and occlusive dressingapplied. The patient tolerated the procedure well. The patient left the IR suitein stable condition. COMPARISON: None. FINDINGS: Large volume ascites. COMPLICATION: No. IMPRESSION: Technically successful US-guided paracentesis. A total of 7.2 liters of clear yellow fluid was removed. A sample of the fluid was sent for laboratory analysis. Administered Albumin 50 g IV once post procedure CRITICAL RESULT: No. COMMUNICATION: Per this written report. Preliminary report signed by SOLANGE Toure on 11/06/2025 10:16 AM By electronically signing this report, I, the attending physician, attestthat I was not present for the procedure(s) but agree with the finaledited report. Drafted by SOLANGE Toure on 11/06/2025 10:15 AM Final report signed by Marcel Magaña MD on 11/06/2025 3:34 PM us Marianna Gordon ELECTRICIAN HELPER IMG US PROCEDURES Final Resu lt * Body fluid, cytospin, pathologist interpretation (11/06/2025 8:06 AM EST) Specimen Type Body Fluid LAB HEMATOLOGY METHOD 11/07/2025 4:37 PM EST [facility] Specimen Source, Body Fluid Peritoneal Fluid LAB HEMATOLOGY METHOD 11/07/2025 4:37 PM EST [facility] Clinical Diagnosis, Body Fluid Cirrhosis, ascites LAB HEMATOLOGY METHOD 11/07/2025 4:37 PM EST [facility] Interpretation , Body Fluid Negative for malignancy, bloody specimen with predominantly chronic inflammatory cells. A resident was involved in the service. I attest I examined the relevant preparations for the specimens and confirmed the diagnosis or interpretation. 11/07/2025 4:37 PM EST [facility] Pathologist Signature, Body Fluid 11/07/2025 4:37 PM EST [facility] Comment:Reviewed by: Anuj carrillo MD LAB CP ASR DISCLAIMER Yes 11/07/2025 4:37 PM EST [facility] Body Fluid Peritoneal fluid / Unknown Non-blood Collection / Unknown 11/06/2025 8:06 AM EST 11/06/2025 9:56 AM EST us Shaniqua Mccurdy ELECTRICIAN HELPER LAB BODY FLUIDS AND STOOLS O RDERABLES Final Result [facility] [address] [place] [address] * (ABNORMAL) Body Fluid Cell Count With Diff - Ascites (11/06/2025 8:06 AM EST) Color, Body fluid [place] LAB HEMATOLOGY METHOD 11/06/2025 4:07 PM [facility] Appearance, Body fluid Cloudy(A) LAB HEMATOLOGY METHOD 11/06/2025 4:07 PM [facility] Volume, Body fluid 37.0 cc LAB HEMATOLOGY METHOD 11/06/2025 4:07 PM [facility] Fluid Container Specimen received in miscellaneous container LAB HEMATOLOGY METHOD 11/06/2025 4:07 PM [facility] Red Blood Cell Count, Body fluid 5,000 uL LAB HEMATOLOGY METHOD 11/06/2025 4:07 PM [facility] Total Nucleated Cell Count, Body fluid 54 uL LAB HEMATOLOGY METHOD 11/06/2025 4:07 PM [facility] Neutrophils %, Body fluid 12 % LAB HEMATOLOGY METHOD 11/06/2025 4:07 PM [facility] Lymphocytes %, Body fluid 62 % LAB HEMATOLOGY METHOD 11/06/2025 4:07 PM [facility] Monocytes/Macr ophages %, Body fluid 25 % LAB HEMATOLOGY METHOD 11/06/2025 4:07 PM [facility] Eosinophils %, Body fluid 0 % LAB HEMATOLOGY METHOD 11/06/2025 4:07 PM [facility] Lining/Mesothe lial Cells %, Body fluid 1 % LAB HEMATOLOGY METHOD 11/06/2025 4:07 PM [facility] Neutrophils Absolute (PMN), Body fluid 6 uL LAB HEMATOLOGY METHOD 11/06/2025 4:07 PM [facility] Lymphocytes Absolute, Body fluid 33 uL LAB HEMATOLOGY METHOD 11/06/2025 4:07 PM [facility] Monocytes/Macr ophages Absolute, Body fluid 14 uL LAB HEMATOLOGY METHOD 11/06/2025 4:07 PM [facility] Eosinophils Absolute, Body fluid 0 uL LAB HEMATOLOGY METHOD 11/06/2025 4:07 PM [facility] Basophils Absolute, Body fluid 0 uL LAB HEMATOLOGY METHOD 11/06/2025 4:07 PM [facility] Lining/Mesothe lial Cells Absolute, Body fluid 1 uL LAB HEMATOLOGY METHOD 11/06/2025 4:07 PM [facility] Basophils %, Body fluid 0 % LAB HEMATOLOGY METHOD 11/06/2025 4:07 PM [facility] Body Fluid Peritoneal fluid / Unknown Non-blood Collection / Unknown 11/06/2025 8:06 AM EST 11/06/2025 9:56 AM EST Shaniqua Mccurdy APRN LAB BODY FLUIDS AND STOOLS ORDERABLES NO SPECIMEN TYPE/SOURCE Final Result Performing Organization Address City/[facility]/ZIP Co de Phone Number [facility] [address] [place] [address] * Glucose - Ascites (11/06/2025 8:00 AM EST) Glucose, Fluid 250 mg/dL 11/06/2025 11:12 AM EST [facility] Peritoneal Fluid Peritoneal cavity structure / Unknown Non-blood Collection / Unknown 11/06/2025 8:00 AM EST 11/06/2025 9:56 AM EST Narrative [facility] - 11/06/2025 11:12 AM EST Peritoneal/Ascites No established reference interval. [...] O RDERABLES Final Result Performing Organization Address City/[facility]/ZIP Co de Phone Number [facility] [address] [place] [address] * Protein - Ascites (11/06/2025 8:00 AM EST) Total Protein, Fluid 0.8 g/dL 11/06/2025 11:12 AM EST [facility] Peritoneal Fluid Peritoneal cavity structure / Unknown Non-blood Collection / Unknown 11/06/2025 8:00 AM EST 11/06/2025 9:56 AM EST Narrative [facility] - 11/06/2025 11:12 AM EST This test was developed and its performance characteristics determined by [facility]. The U.S. Food and Drug Administration has not approved or cleared this test. However, FDA clearance or approval is not currently required for clinical use. The results are not intended to be used as the sole means for clinical diagnosis or patient management decisions. us Shaniqua Mccurdy ELECTRICIAN HELPER LAB BODY FLUIDS AND STOOLS O RDERABLES Final Result [facility] [address] [place] [address] documented in this encounter Visit Diagnoses Diagnosis Other ascites documented in this encounter Administered Medications Inactive Administered Medications - up to 3 most recent administrations Medication Order MAR Action Action Date Dose Rate Site albumin human 25 % infusion 12.5 g 12.5 g, Intravenous, Every 15 min PRN, 5 doses, Starting on 11/06/25 at 0627, Until Sarahi 11/07/25 at 0239, Routine, Intraprocedure, Give additional 12.5 g doses per albumin replacement chart New Bag 11/06/2025 8:37 AM EST 12.5 g albumin human 25 % infusion 37.5 g 37.5 g, Intravenous, Once as needed, 1 dose, Starting on Tue11/06/25 at 0627, Until Tue11/06/25 at 0747, Routine, Intraprocedure, For 5-6.9 L drained New Bag 11/06/2025 7:47 AM EST 37.5 g lidocaine 0.9% in sodium bicarbonate (buffered lidocaine) solution solution As needed, Starting on Tue11/06/25 at 0753, Until Tue11/06/25 at 0753, Routine, Intraprocedure Given 11/06/2025 7:53 AM EST 10 mL Abdominal Tissue documented [...] as of this encounter Care Teams Health Information Administrator Relationship Specialty Start Date End Date Lillie Pritchard MD [address] [place] [address] [phone] PCP - General Family Medicine 09/03/25 Lea Fernando [address] [facility] [address] [place] [address] Transmitter Chief Endocrinology 08/29/24 Rachel Ray, RN [address] [facility] [address] [place] [address] Nurse Practitioner Gastroenterology 09/24/24 Tamera Isabel LPN VALUE-BASED TRANSFORMATION PROGRAM None Licensed Practical Nurse 05/29/25 documented as of this encounter
--- NOTE | 2025-11-11 22:47 | ECG_ITS ---
APPROVED REPORT Exam: Resting ECG HR:93 bpm ECG Measurements Heart Rate 93 AXES HI 129 P 52 QRSd 93 QRS -49 QT 376 T 16 QTc 426 Conclusion SINUS RHYTHM WITH SINUS ARRHYTHMIA PATTERN CONSISTENT WITH PULMONARY DISEASE LEFT ANTERIOR FASCICULAR BLOCK [QRS AXIS <= -45, QR IN I, RS IN II] No STEMI Electronically signed by : CURTIS DAY, 11/13/2025 07:07:02
[2025-11-11 22:50] VITALS: BP 126/76; PULSE 93; RESP 18; TEMP 36.9; O2SAT 96; BMI 28.6
[2025-11-11 22:56] VITALS: BP 109/53; PULSE 84; RESP 18; TEMP 36.6; O2SAT 96
--- NOTE | 2025-11-11 23:02 | XR_ITS ---
PROCEDURE INFORMATION: Exam: XR Chest Exam date and time: 11/11/2025 10:56 PM Age: 65 years old Clinical indication: Other: Palpitations; Additional info: Palpitations, HX of thoracentesis d/t hwang TECHNIQUE: Imaging protocol: Radiologic exam of the chest. Views: 2 views. COMPARISON: CT CHEST WO CON 10/10/2025 12:05 PM FINDINGS: Lungs: There is right basilar atelectasis. Pleural spaces: Unremarkable. No pleural effusion. No pneumothorax. Heart/Mediastinum: Unremarkable. No cardiomegaly. Vasculature: Unremarkable. Bones/joints: Unremarkable. IMPRESSION: Right basilar atelectasis. No pneumothorax.
--- OUTSIDE RECORDS SUMMARY | 2025-11-11 23:02 | XMS_ITS | Encounter Summary ---
Author Organization [facility] Address [address] [place] [address] Care Team Providers Care Ticket Printer Name Role Phone Wilma Howard APRN Primary Care Provider [phone] Lea Fernando Unavailable [phone] Rachel Ray RN Unavailable [phone] Taina Lyles APRN Primary Care Provider [phone] Monique Tapia LPN Unavailable Unavailable Alvarez Zimmer MD Primary Care Provider [phone] Shaniqua Trevino LPN Unavailable Unavailable Tamera Isabel LPN Unavailable UnavailAlina Bedolla RN Unavailable Unavailab le Monique Tapia LPN Unavailable Unavailable Shaniqua Trevino LPN Unavailable Unavailable Lillie Pritchard MD Primary Care Provider [phone] Wilma Esqueda LPN Unavailable Unavailab le Encounter Details Date Type Department Care Team (Late st Contact Info) Description 04/23/2024 Orders Only External Location [address] [place] [address] Provider, External Social History Tobacco Use Types [...] [facility] [address] [place] [address] 11/13/2025 2:00 PM EST Appointment [facility] [address] [place] [address] 11/20/2025 11:45 AM EST Appointment [facility] [address] [place] [address] 11/20/2025 12:45 PM EST Appointment [facility] [address] [place] [address] 11/22/2025 1:00 PM EST Office Visit [place] [id number] [facility] [address] [place] [address] Barrie Peterson MD [address] [place] [address] 11/28/2025 10:00 AM EST Appointment [facility] [address] [place] [address] 11/28/2025 11:00 AM EST Appointment [facility] [address] [place] [address] 12/05/2025 10:00 AM EST Appointment [facility] [address] [place] [address] 12/05/2025 11:00 AM EST Appointment [facility] [address] [place] [address] 12/20/2025 11:00 AM EST Office Visit [facility] Endocrinology [address] [facility] [place] [phone] Miranda Hobson APRN [address] [place] [address] 03/07/2026 9:00 AM EDT Office Visit [place] [facility] [address] [place] [address] Grover Little MD [address] [place] [address] documented as of this encounter [...] Rule-Out 01/08/2025 01/08/2025 025 7:29 PM EST COVID-19 Rule-Out 10/10/2025 10/10/2025 10/11/2025 4:56 AM EST Respiratory Rule-Out 10/10/2025 10/11/2025 025 6:01 AM EST Assessment Noted Time A fall risk assessment has been complete d for the patient 09/07/2023 9:44 AM EDT A Body Mass Index follow-up plan has been documented for the patient 03/06/2024 11:48 AM EDT documented as of this encounter Care Teams Ticket Printer Relationship Specialty Start Date End Date Wilma Howard APRN [address] [place] [address] [place], [place] [id number] PCP - General 04/03/21 09/30/24 Taina Lyles APRN [address] [place] [address] [place] [address] PCP - General 10/01/24 12/06/24 Alvarez Zimmer MD [address] [place] [phone] PCP - General Family Medicine 12/07/24 09/02/25 Lillie Pritchard MD [address] [place] [address] [phone] PCP - General Family Medicine 09/03/25 Lea Fernando [address] [facility] [address] [place] [phone] [facility] Endocrinology 08/29/24 Rachel Ray, RN [address] [facility] [address] [place] [address] Nurse Practitioner Gastroenterology 09/24/24 Monique Tapia LPN VALUE[employer] [place] [address] None TCM Nurse 11/28/24 12/28/24 Shaniqua Trevino LPN None None TCM Nurse 01/15/25 02/14/25 Tamera Isabel LPN VALUE-BASED TRANSFORMATION PROGRAM None Licensed Practical Nurse 05/29/25 Alina Lovett, RN [facility] None Registered Nurse 06/26/25 06/26/25 Monique Tapia LPN [employer] [place] [address] None TCM Nurse 07/10/25 08/09/25 Shaniqua Trevino LPN None None TCM Nurse 08/21/25 09/20/25 Wilma Esqueda LPN [facility] None TCM Nurse 10/25/25 10/25/25 documented as of this encounter
--- OUTSIDE RECORDS SUMMARY | 2025-11-11 23:02 | XMS_ITS | Encounter Summary ---
Author Organization [facility] Address [address] [place] [address] Care Team Providers Care Aircraft Part Assembler Name Role Phone Wilma Howard APRN Primary Care Provider [phone] Lea Fernando Unavailable [phone] Rachel Ray RN Unavailable [phone] Taina Lyles APRN Primary Care Provider [phone] Monique Tapia LPN Unavailable Unavailable Alvarez Zimmer MD Primary Care Provider [phone] Shaniqua Trevino LPN Unavailable Unavailable Tamera Isabel LPN Unavailable UnavailAlina Bedolla RN Unavailable Unavailab le Monique Tapia LPN Unavailable Unavailable Shaniqua Trevino LPN Unavailable Unavailable Lillie Pritchard MD Primary Care Provider [phone] Wilma Esqueda LPN Unavailable Unavailab le Encounter Details Date Type Department Care Team (Late st Contact Info) Description 02/26/2024 Orders Only External Location [address] [place] [address] Provider, External Social History Tobacco Use Types [...] Appointment [facility] Interventional Radiology [address] [place] [address] 11/13/2025 2:00 PM EST Appointment [facility] [address] [place] [address] 11/20/2025 11:45 AM EST Appointment [facility] [address] [place] [address] 11/20/2025 12:45 PM EST Appointment [facility] Inter[facility] Radiology [address] [place] [address] 11/22/2025 1:00 PM EST Office Visit [place] 6[address] [facility] [address] [place] [address] Barrie Peterson MD [address] [place] [address] 11/28/2025 10:00 AM EST Appointment [facility] Inter[facility] Radiology [address] [place] [address] 11/28/2025 11:00 AM EST Appointment [facility] Radiology [address] [place] [address] 12/05/2025 10:00 AM EST Appointment [facility] Inter[facility] Radiology [address] [place] [address] 12/05/2025 11:00 AM EST Appointment [facility] Interventional Radiology [address] [place] [address] 12/20/2025 11:00 AM EST Office Visit [facility] Endocrinology [address] [facility] [place] [address] Miranda Hobson APRN [address] [place] [address] 03/07/2026 9:00 AM EDT Office Visit [facility] [address], [address] [place] [address] Grover Little MD [address] [place] [address] documented as of this encounter Procedures Procedure Name Priority Date/Time Associated Diagnosis Comments US OUTSIDE IMAGES 02/26/2024 8:26 AM EDT documented in this encounter Results * US OUTSIDE IMAGES (02/26/2024 8:26 AM EDT) Anatomical Region Laterality Modality Ultrasound 02/26/2024 8:2 6 AM EDT us External Provider IMG US [...] as of this encounter Care Teams Aircraft Part Assembler Relationship Specialty Start Date End Date Wilma Howard APRN [address] [place] [address] [place] [address] PCP - General 04/03/21 09/30/24 Taina Lyles APRN [address] [place] [address] [place] [address] PCP - General 10/01/24 12/06/24 Alvarez Zimmer MD [address] [place] [address] PCP - General Family Medicine 12/07/24 09/02/25 Lillie Pritchard MD [address] [place] [address] [id number] PCP - General Family Medicine 09/03/25 Lea Fernando [address] [place] [address] 125 [place] [phone] Cardiopulmonary Technician And Eeg Tech Endocrinology 08/29/24 Rachel Ray, RN [address] [facility] [address] [place] [address] Nurse Practitioner Gastroenterology 09/24/24 Monique Tapia LPN VALUE-[place] [address] None TCM Nurse 11/28/24 12/28/24 Shaniqua Trevino LPN None None TCM Nurse 01/15/25 02/14/25 Tamera Isabel LPN VALUE-BASED TRANSFORMATION PROGRAM None Licensed Practical Nurse 05/29/25 Alina Lovett, RN CH-VASCULAR & INTERVENTIONAL RADIOLOGY None Registered Nurse 06/26/25 06/26/25 Monique Tapia LPN VALUE-[place] [address] None TCM Nurse 07/10/25 08/09/25 Shaniqua Trevino LPN None None TCM Nurse 08/21/25 09/20/25 Wilma Esqueda LPN [facility] None TCM Nurse 10/25/25 10/25/25 documented as of this encounter
--- OUTSIDE RECORDS SUMMARY | 2025-11-11 23:02 | XMS_ITS | Encounter Summary ---
Author Organization [facility] Address [address] [place] [address] Care Team Providers Care Sample Patternmaker Name Role Phone Wilma Howard APRN Primary Care Provider [phone] Lea Fernando Unavailable [phone] Rachel Ray RN Unavailable [phone] Taina Lyles APRN Primary Care Provider [phone] Monique Tapia LPN Unavailable Unavailable Alvarez Zimmer MD Primary Care Provider [phone] Shaniqua Trevino LPN Unavailable Unavailable Tamera Isabel LPN Unavailable UnavailAlina Bedolla RN Unavailable Unavailab le Monique Tapia LPN Unavailable Unavailable Shaniqua Trevino LPN Unavailable Unavailable Lillie Pritchard MD Primary Care Provider [phone] Wilma Esqueda LPN Unavailable Unavailab le Encounter Details Date Type Department Care Team (Late st Contact Info) Description 07/17/2024 Orders Only External Location [address] [place] [address] Provider, External Social History Tobacco Use Types [...] Appointment [facility] Interventional Radiology [address] [place] [address] 11/13/2025 2:00 PM EST Appointment [facility] Interventional Radiology [address] [place] [address] 11/20/2025 11:45 AM EST Appointment [facility] Interventional Radiology [address] [place] [address] 11/20/2025 12:45 PM EST Appointment [facility] Interventional Radiology [address] [place] [address] 11/22/2025 1:00 PM EST Office Visit [place] 504830 [facility] [address] [place] [address] Barrie Peterson MD [address] [place] [address] 11/28/2025 10:00 AM EST Appointment [facility] Interventional Radiology [address] [place] [address] 11/28/2025 11:00 AM EST Appointment [facility] Interventional Radiology [address] [place] [address] 12/05/2025 10:00 AM EST Appointment [facility] Interventional Radiology [address] [place] [address] 12/05/2025 11:00 AM EST Appointment [facility] Interventional Radiology [address] [place] [address] 12/20/2025 11:00 AM EST Office Visit [facility] Endocrinology [address] [facility] [place] [address] Miranda Hobson APRN [address] [place] [address] 03/07/2026 9:00 AM EDT Office Visit [place] [facility] [address] 2[address] [place] [address] Grover Little MD [address] [place] [address] documented as of this encounter [...] documented as of this encounter Care Teams Sample Patternmaker Relationship Specialty Start Date End Date Wilma Howard, ADRI [address] [place] [address] Dr [place], [place] [id number] PCP - General 04/03/21 09/30/24 Taina Lyles APRN [address] [place] [address] [place] [address] PCP - General 10/01/24 12/06/24 Alvarez Zimmer MD [address] [place] [address] PCP - General Family Medicine 12/07/24 09/02/25 Lillie Pritchard MD [address] [place] [address] [phone] PCP - General Family Medicine 09/03/25 Lea Fernando 2[address] [facility] 125 [place] [address] [facility] Endocrinology 08/29/24 Rachel Ray, RN [address] [facility] [address] [place] [address] Nurse Practitioner Gastroenterology 09/24/24 Monique Tapia LPN VALUE-BASED [place] [address] None TCM Nurse 11/28/24 12/28/24 Shaniqua Trevino LPN None None TCM Nurse 01/15/25 02/14/25 Tamera Isabel LPN VALUE-BASED TRANSFORMATION PROGRAM None Licensed Practical Nurse 05/29/25 Alina Lovett, RN CH-VASCULAR & INTERVENTIONAL RADIOLOGY None Registered Nurse 06/26/25 06/26/25 Monique Tapia LPN VALUE-BASED [place] [address] None TCM Nurse 07/10/25 08/09/25 Trevino, Shaniqua M, BRAKE OPERATOR None None TCM Nurse 08/21/25 09/20/25 Wilma Esqueda LPN [facility] None TCM Nurse 10/25/25 10/25/25 documented as of this encounter
--- OUTSIDE RECORDS SUMMARY | 2025-11-11 23:02 | XMS_ITS | Encounter Summary ---
Author Organization [facility] Address [address] [place] [address] Care Team Providers Care Showroom Salesperson Name Role Phone Wilma Howard APRN Primary Care Provider [phone] Lea Fernando Unavailable [phone] Rachel Ray RN Unavailable [phone] Taina Lyles APRN Primary Care Provider [phone] Monique Tapia LPN Unavailable Unavailable Alvarez Zimmer MD Primary Care Provider [phone] Shaniqua Trevino LPN Unavailable Unavailable Tamera Isabel LPN Unavailable UnavailAlina Bedolla RN Unavailable Unavailab le Monique Tapia LPN Unavailable Unavailable Shaniqua Trevino LPN Unavailable Unavailable Lillie Pritchard MD Primary Care Provider [phone] Wilma Esqueda LPN Unavailable Unavailab le Encounter Details Date Type Department Care Team (Late st Contact Info) Description 02/08/2024 Orders Only External Location [address] [place] [address] Provider, External Social History Tobacco Use Types [...] Appointment [facility] Interventional Radiology [address] [place] [address] 11/13/2025 2:00 PM EST Appointment [facility] Interventional Radiology [address] [place] [address] 11/20/2025 11:45 AM EST Appointment [facility] Interventional Radiology [address] [place] [address] 11/20/2025 12:45 PM EST Appointment [facility] Interventional Radiology [address] [place] [address] 11/22/2025 1:00 PM EST Office Visit [place] [address] [facility] [address] [place] [address] Barrie Peterson MD [address] [place] [address] 11/28/2025 10:00 AM EST Appointment [facility] Interventional Radiology [address] [place] [address] 11/28/2025 11:00 AM EST Appointment [facility] Interventional Radiology [address] [place] [address] 12/05/2025 10:00 AM EST Appointment [facility] Interventional Radiology [address] [place] [address] 12/05/2025 11:00 AM EST Appointment [facility] Interventional Radiology [address] [place] [address] 12/20/2025 11:00 AM EST Office Visit [facility] Endocrinology [address] [place] [address] Miranda Hobosn APRN [address] [place] [address] 03/07/2026 9:00 AM EDT Office Visit [place] [facility] [address] 2[address] [place] [address] Grover Little MD [address] [place] [address] documented as of this encounter [...] documented as of this encounter Care Teams Showroom Salesperson Relationship Specialty Start Date End Date Wilma Howard APRN [address] [place] [address] Dr [place], [place] [phone] PCP - General 04/03/21 09/30/24 Taina Lyles APRN [address] [place] [address] [place] [address] PCP - General 10/01/24 12/06/24 Alvarez Zimmer MD [address] [place] [phone] PCP - General Family Medicine 12/07/24 09/02/25 Lillie Pritchard MD [address] [place] [address] [id number] PCP - General Family Medicine 09/03/25 [address]a [place] [address] [facility] 125 [place] [address] Combination Building Inspector Endocrinology 08/29/24 Rachel Ray, RN [address] [facility] [address] [place] [address] Nurse Practitioner Gastroenterology 09/24/24 Monique Tapia LPN VALUE-BASED [place] [address] None TCM Nurse 11/28/24 12/28/24 Shaniqua Trevino LPN None None TCM Nurse 01/15/25 02/14/25 Tamera Isabel LPN VALUE-BASED TRANSFORMATION PROGRAM None Licensed Practical Nurse 05/29/25 Alina Lovett, RN CH-VASCULAR & INTERVENTIONAL RADIOLOGY None Registered Nurse 06/26/25 06/26/25 Monique Tapia LPN VALUE-BASED [place] [address] None TCM Nurse 07/10/25 08/09/25 Shaniqua Trevino LPN None None TCM Nurse 08/21/25 09/20/[address] [facility] None TCM Nurse 10/25/25 10/25/25 documented as of this encounter
--- OUTSIDE RECORDS SUMMARY | 2025-11-11 23:02 | XMS_ITS | Encounter Summary ---
Author Organization [facility] Address [address] [place] [address] Care Team Providers Care Packing House Laborer Name Role Phone Wilma Howard APRN Primary Care Provider [phone] Lea Fernando Unavailable [phone] Rachel Ray RN Unavailable [phone] Taina Lyles APRN Primary Care Provider [phone] Monique Tapia LPN Unavailable Unavailable Alvarez Zimmer MD Primary Care Provider [phone] Shaniqua Trevino LPN Unavailable Unavailable Tamera Isabel LPN Unavailable UnavailAlina Bedolla RN Unavailable Unavailab le Monique Tapia LPN Unavailable Unavailable Shaniqua Trevino LPN Unavailable Unavailable Lillie Pritchard MD Primary Care Provider [phone] Wilma Esqueda LPN Unavailable Unavailab le Encounter Details Date Type Department Care Team (Late st Contact Info) Description 02/08/2024 Orders Only External Location [address] [place] [address] Provider, External Social History Tobacco Use Types [...] Appointment [facility] Interventional Radiology [address] [place] [address] 11/13/2025 2:00 PM EST Appointment [facility] Interventional Radiology [address] [place] [address] 11/20/2025 11:45 AM EST Appointment [facility] Interventional Radiology [address] [place] [address] 11/20/2025 12:45 PM EST Appointment [facility] Interventional Radiology [address] [place] [address] 11/22/2025 1:00 PM EST Office Visit [place] [address] [facility] [address] [place] [address] Barrie Peterson MD [address] [place] [address] 11/28/2025 10:00 AM EST Appointment [facility] Interventional Radiology [address] [place] [address] 11/28/2025 11:00 AM EST Appointment [facility] Interventional Radiology [address] [place] [address] 12/05/2025 10:00 AM EST Appointment [facility] Interventional Radiology [address] [place] [address] 12/05/2025 11:00 AM EST Appointment [facility] Interventional Radiology [address] [place] [address] 12/20/2025 11:00 AM EST Office Visit [facility] Endocrinology [address] [facility] [place] [address] Miranda Hobson APRN [address] [place] [address] 03/07/2026 9:00 AM EDT Office Visit [place] [facility] [address] [place] [address] Grover Little MD [address] [place] [address] documented as of this encounter [...] documented as of this encounter Care Teams Packing House Laborer Relationship Specialty Start Date End Date Wilma Howard APRN [address] [place] [address] Dr [place], [place] [phone] PCP - General 04/03/21 09/30/24 Taina Lyles APRN [address] [place] [address] [place] [address] PCP - General 10/01/24 12/06/24 Alvarez Zimmer MD [address] [place] [phone] PCP - General Family Medicine 12/07/24 09/02/25 Lillie Pritchard MD [address] [place] [address] [id number] PCP - General Family Medicine 09/03/25 Lea Fernando 2195 [facility] 125 [place] [address] Fiscal Accounting Clerk Endocrinology 08/29/24 Rachel Ray, RN [address] [facility] [address] [place] [address] Nurse Practitioner Gastroenterology 09/24/24 Monique Tapia LPN VALUE-BASED [place] [address] None TCM Nurse 11/28/24 12/28/24 Shaniqua Trevino LPN None None TCM Nurse 01/15/25 02/14/25 Tamera Isabel LPN VALUE-BASED TRANSFORMATION PROGRAM None Licensed Practical Nurse 05/29/25 Alina Lovett, RN CH-VASCULAR & INTERVENTIONAL RADIOLOGY None Registered Nurse 06/26/25 06/26/25 Monique Tapia LPN VALUE-BASED [place] [address] None TCM Nurse 07/10/25 08/09/25 Shaniqua Trevino LPN None None TCM Nurse 08/21/25 09/20/25 Wilma Esqueda LPN [facility] None TCM Nurse 10/25/25 10/25/25 documented as of this encounter
--- OUTSIDE RECORDS SUMMARY | 2025-11-11 23:02 | XMS_ITS | Encounter Summary ---
Author Organization [facility] Address [address] [place] [address] Care Team Providers Care Salesperson Women'S Hats Name Role Phone Wilma Howard APRN Primary Care Provider [phone] Lea Fernando Unavailable [phone] Rachel Ray RN Unavailable [phone] Taina Lyles APRN Primary Care Provider [phone] Monique Tapia LPN Unavailable Unavailable Alvarez Zimmer MD Primary Care Provider Shaniqua Trevino LPN Unavailable Unavailable Tamera Isabel LPN Unavailable UnavailAlina Bedolla RN Unavailable Unavailab le Monique Tapia LPN Unavailable Unavailable Shaniqua Trevino LPN Unavailable Unavailable Lillie Pritchard MD Primary Care Provider [phone] Wilma Esqueda LPN Unavailable Unavailab le Encounter Details Date Type Department Care Team (Late st Contact Info) Description 02/02/2024 Orders Only External Location [address] [place] [address] Provider, External Social History Tobacco Use Types [...] Appointment [facility] Interventional Radiology [address] [place] [address] 11/13/2025 2:00 PM EST Appointment [facility] Interventional Radiology [address] [place] [address] 11/20/2025 11:45 AM EST Appointment [facility] Interventional Radiology [address] [place] [address] 11/20/2025 12:45 PM EST Appointment [facility] Interventional Radiology [address] [place] [address] 11/22/2025 1:00 PM EST Office Visit [place] [address] [facility] [address] [place] [address] Barrie Peterson MD [address] [place] [address] 11/28/2025 10:00 AM EST Appointment [facility] A Interventional Radiology [address] [place] [address] 11/28/2025 11:00 AM EST Appointment [facility] Interventional Radiology [address] [place] [address] 12/05/2025 10:00 AM EST Appointment [facility] Interventional Radiology [address] [place] [address] 12/05/2025 11:00 AM EST Appointment [facility] Interventional Radiology [address] [place] [address] 12/20/2025 11:00 AM EST Office Visit [facility] Endocrinology [address] [place] [address] Miranda Hobson APRN [address] [place] [address] 03/07/2026 9:00 AM EDT Office Visit [place] [facility] [address] 2[address] [place] [address] Grover Little MD [address] [place] [address] documented as of this encounter [...] documented as of this encounter Care Teams Salesperson Women'S Hats Relationship Specialty Start Date End Date Wilma Howard APRN [address] [place] [address] [place], [place] [phone] PCP - General 04/03/21 09/30/24 Taina Lyles APRN [address] [place] [address] [place] [address] PCP - General 10/01/24 12/06/24 Alvarez Zimmer MD [address] [place] [phone] PCP - General Family Medicine 12/07/24 09/02/25 Lillie Pritchard MD [address] [place] [address] [phone] PCP - General Family Medicine 09/03/25 Lea Fernando 2195 [facility] 125 [place] [phone] Roll Out Manager Endocrinology 08/29/24 Rachel Ray, RN [address] [facility] [address] [place] [address] Nurse Practitioner Gastroenterology 09/24/24 Monique Tapia LPN VALUE-[place] [address] None TCM Nurse 11/28/24 12/28/24 Shaniqua Trevino LPN None None TCM Nurse 01/15/25 02/14/25 Tamera Isabel LPN VALUE-BASED TRANSFORMATION PROGRAM None Licensed Practical Nurse 05/29/25 Alina Lovett, RN CH-VASCULAR & INTERVENTIONAL RADIOLOGY None Registered Nurse 06/26/25 06/26/25 Monique Tapia LPN VALUE-[place] [address] None TCM Nurse 07/10/25 08/09/25 Shaniqua Trevino LPN None None TCM Nurse 08/21/25 09/20/25 Wilma Esqueda LPN [facility] None TCM Nurse 10/25/25 10/25/25 documented as of this encounter
--- OUTSIDE RECORDS SUMMARY | 2025-11-11 23:02 | XMS_ITS | Encounter Summary ---
Author Organization [facility] Address [address] [place] [address] Care Team Providers Care Glass Rolling Machine Operator Name Role Phone Wilma Howard APRN Primary Care Provider [phone] Lea Fernando Unavailable [phone] Rachel Ray RN Unavailable [phone] Taina Lyles APRN Primary Care Provider [phone] Monique Tapia LPN Unavailable Unavailable Alvarez Zimmer MD Primary Care Provider [phone] Shaniqua Trevino LPN Unavailable Unavailable Tamera Isabel LPN Unavailable UnavailAlina Bedolla RN Unavailable Unavailab le Monique Tapia LPN Unavailable Unavailable Shaniqua Trevino LPN Unavailable Unavailable Lillie Pritchard MD Primary Care Provider [phone] Wilma Esqueda LPN Unavailable Unavailab le Encounter Details Date Type Department Care Team (Late st Contact Info) Description 12/15/2023 Orders Only External Location [address] [place] [address] Provider, External Social History Tobacco Use Types [...] Appointment [facility] A Interventional Radiology [address] [place] [address] 11/13/2025 2:00 PM EST Appointment [facility] Interventional Radiology [address] [place] [address] 11/20/2025 11:45 AM EST Appointment [facility] Interventional Radiology [address] [place] [address] 11/20/2025 12:45 PM EST Appointment [facility] Interventional Radiology [address] [place] [address] 11/22/2025 1:00 PM EST Office Visit [place] [address] [facility] [address] [place] [address] Barrie Peterson MD [address] [place] [address] 11/28/2025 10:00 AM EST Appointment [facility] Interventional Radiology [address] [place] [address] 11/28/2025 11:00 AM EST Appointment [facility] Interventional Radiology [address] [place] [address] 12/05/2025 10:00 AM EST Appointment [facility] Interventional Radiology [address] [place] [address] 12/05/2025 11:00 AM EST Appointment [facility] Interventional Radiology [address] [place] [address] 12/20/2025 11:00 AM EST Office Visit [facility]ocrinology [address] [facility] [place] [address] Miranda Hobson APRN [address] [place] [address] 03/07/2026 9:00 AM EDT Office Visit [place] [facility] [address] 2[address] [place] [address] Grover Little MD [address] [place] [address] documented as of this encounter [...] as of this encounter Care Teams Glass Rolling Machine Operator Relationship Specialty Start Date End Date Wilma Howard, ADRI [address] [place] [address] [place] [address] PCP - General 04/03/21 09/30/24 Taina Lyles APRN [address] [place] [address] [place] [address] PCP - General 10/01/24 12/06/24 Alvarez Zimmer MD [address] [place] [address] PCP - General Family Medicine 12/07/24 09/02/25 Lillie Pritchard MD [address] [place] [address] [id number] PCP - General Family Medicine 09/03/25 Lea [place] [address] [place] [address] 125 [place] [phone] Inspectors And Regulatory Officers Endocrinology 08/29/24 Rachel Ray, RN [address] [facility] [address] [place] [address] Nurse Practitioner Gastroenterology 09/24/24 Monique Tapia LPN VALUE-BASED [place] [address] None TCM Nurse 11/28/24 12/28/24 Shaniqua Trevino LPN None None TCM Nurse 01/15/25 02/14/25 Tamera Isabel LPN VALUE-BASED TRANSFORMATION PROGRAM None Licensed Practical Nurse 05/29/25 Alina Lovett, RN CH-VASCULAR & INTERVENTIONAL RADIOLOGY None Registered Nurse 06/26/25 06/26/25 Monique Tapia LPN VALUE-BASED [place] [address] None TCM Nurse 07/10/25 08/09/25 Shaniqua Trevino LPN None None TCM Nurse 08/21/25 09/20/25 Wilma Esqueda, [facility] None TCM Nurse 10/25/25 10/25/25 documented as of this encounter
--- OUTSIDE RECORDS SUMMARY | 2025-11-11 23:02 | XMS_ITS | Encounter Summary ---
Author Organization [facility] Address [address] [place] [address] Care Team Providers Care Roll Hand Name Role Phone Wilma Howard APRN Primary Care Provider [phone] Lea Fernando Unavailable [phone] Rachel Ray RN Unavailable [phone] Taina Lyles APRN Primary Care Provider [phone] Monique Tapia LPN Unavailable Unavailable Alvarez Zimmer MD Primary Care Provider [phone] Shaniqua Trevino LPN Unavailable Unavailable Tamera Isabel LPN Unavailable UnavailAlina Bedolla RN Unavailable Unavailab le Monique Tapia LPN Unavailable Unavailable Shaniqua Trevino LPN Unavailable Unavailable Lillie Pritchard MD Primary Care Provider [phone] Wilma Esqueda LPN Unavailable Unavailab le Encounter Details Date Type Department Care Team (Late st Contact Info) Description 09/14/2024 Orders Only External Location [address] [place] [address] Provider, External Social History Tobacco Use Types [...] in a halfway (including now)? Yes 08/29/2024 Education Answer Date [...] Appointment [facility] [address] [place] [address] 11/13/2025 2:00 PM EST Appointment [facility] [address] [place] [address] 11/20/2025 11:45 AM EST Appointment [facility] [address] [facility] [place] [address] 11/20/2025 12:45 PM EST Appointment [facility] Inter[facility] Radiology [address] [facility] [place] [address] 11/22/2025 1:00 PM EST Office Visit [facility] [address] [facility] [address] [place] [address] Barrie Peterson MD [address] [place] [address] 11/28/2025 10:00 AM EST Appointment [facility] [address] [place] [address] 11/28/2025 11:00 AM EST Appointment [facility] [address] [place] [address] 12/05/2025 10:00 AM EST Appointment [facility] [address] [place] [address] 12/05/2025 11:00 AM EST Appointment [facility] [address] [place] [address] 12/20/2025 11:00 AM EST Office Visit [facility] Endocrinology [address] [place] [address] Miranda Hobson P, SUPERVISOR TICK[employer] SALES [address] [address] 03/07/2026 9:00 AM EDT Office Visit [place] [facility] [address] [place] [address] Grover Little MD [address] [place] [address] documented as of this encounter Procedures Procedure [...] as of this encounter Care Teams Roll Hand Relationship Specialty Start Date End Date Wilma Howard APRN [address] [place] [address] [place] [address] PCP - General 04/03/21 09/30/24 Taina Lyles APRN [address] [place] [address] [place] [address] PCP - General 10/01/24 12/06/24 Alvarez Zimmer MD [facility] [place] [address] PCP - General Family Medicine 12/07/24 09/02/25 Lillie Pritchard MD [address] [place] [address] PCP - General Family Medicine 09/03/25 Lea Fernando [address] [facility] [address] [place] [address] Glass Cutting Machine Operator Endocrinology 08/29/24 Rachel Ray, RN [address] [place] [address] Nurse Practitioner Gastroenterology 09/24/24 Monique Tapia LPN [employer] [address] None TCM Nurse 11/28/24 12/28/24 Shaniqua Trevino LPN None None TCM Nurse 01/15/25 02/14/25 Tamera Isabel LPN VALUE-BASED TRANSFORMATION PROGRAM None Licensed Practical Nurse 05/29/25 Alina Lovett, RN [facility] INTERVENTIONAL RADIOLOGY None Registered Nurse 06/26/25 06/26/25 Monique Tapia LPN [employer] [address] None TCM Nurse 07/10/25 08/09/25 Shaniqua Trevino LPN None None TCM Nurse 08/21/25 09/20/25 Wilma Esqueda LPN [facility] None TCM Nurse 10/25/25 10/25/25 documented as of this encounter
--- OUTSIDE RECORDS SUMMARY | 2025-11-11 23:02 | XMS_ITS | Encounter Summary ---
Author Organization [facility] Address [address] [place] [address] Care Team Providers Care Camera Repair Technician Name Role Phone Wilma Howard APRN Primary Care Provider [phone] Lea Fernando Unavailable [phone] Rachel Ray RN Unavailable [phone] Taina Lyles APRN Primary Care Provider [phone] Monique Tapia LPN Unavailable Unavailable Alvarez Zimmer MD Primary Care Provider [phone] Shaniqua Trevino LPN Unavailable Unavailable Tamera Isabel LPN Unavailable UnavailAlina Bedolla RN Unavailable Unavailab le Monique Tapia LPN Unavailable Unavailable Shaniqua Trevino LPN Unavailable Unavailable Lillie Pritchard MD Primary Care Provider [phone] Wilma Esqueda LPN Unavailable Unavailab le Encounter Details Date Type Department Care Team (Late st Contact Info) Description 07/14/2024 Orders Only External Location [address] [place] [address] Provider, External Social History Tobacco Use Types [...] [facility] Interventional Radiology [address] [place] [address] 11/13/2025 2:00 PM EST Appointment [facility] [address] [place] [address] 11/20/2025 11:45 AM EST Appointment [facility] [address] [place] [address] 11/20/2025 12:45 PM EST Appointment [facility]iology [address] [place] [address] 11/22/2025 1:00 PM EST Office Visit [place] [address] [facility] [address] [place] [address] Barrie Peterson MD [address] [place] [address] 11/28/2025 10:00 AM EST Appointment [facility] Inter[facility] Radiology [address] [place] [address] 11/28/2025 11:00 AM EST Appointment [facility] [address] [place] [address] 12/05/2025 10:00 AM EST Appointment [facility] [address] [place] [address] 12/05/2025 11:00 AM EST Appointment [facility] [address] [place] [address] 12/20/2025 11:00 AM EST Office Visit [facility] Endocrinology [address] [place] [address] Miranda Hobson APRN [address] [place] [address] 03/07/2026 9:00 AM EDT Office Visit [place] [facility] [address] [place] [address] Grover Little MD [address] [place] [address] documented as of this encounter [...] documented as of this encounter Care Teams Camera Repair Technician Relationship Specialty Start Date End Date Wilma Howard APRN [address] [place] [address] [place], [place] [id number] PCP - General 04/03/21 09/30/24 Taina Lyles APRN [address] [place] [address] [place] [address] PCP - General 10/01/24 12/06/24 Alvarez Zimmer MD [address] [place] [phone] PCP - General Family Medicine 12/07/24 09/02/25 Lillie Pritchard MD [address] [place] [address] [id number] PCP - General Family Medicine 09/03/25 [address] [facility] [address] [place] [address] Certified Social Workers In Health Care Endocrinology 08/29/24 Rachel Ray, RN [address] [facility] [address] [place] [address] Nurse Practitioner Gastroenterology 09/24/24 Monique Tapia LPN [employer] [place] [address] None TCM Nurse 11/28/24 12/28/24 Shaniqua Trevino LPN None None TCM Nurse 01/15/25 02/14/25 Tamera Isabel LPN VALUE-BASED TRANSFORMATION PROGRAM None Licensed Practical Nurse 05/29/25 Alina Lovett, RN [facility] INTERVENTIONAL RADIOLOGY None Registered Nurse 06/26/25 06/26/25 Monique Tapia LPN VALUE-[employer]ED [place] [address] None TCM Nurse 07/10/25 08/09/25 Shaniqua Trevino LPN None None TCM Nurse 08/21/25 09/20/25 Wilma Esqueda LPN [facility] None TCM Nurse 10/25/25 10/25/25 documented as of this encounter
--- OUTSIDE RECORDS SUMMARY | 2025-11-11 23:02 | XMS_ITS | Encounter Summary ---
Author Organization [facility] Address [address] [place] [address] Care Team Providers Care Wetlands Technician Name Role Phone Wilma Howard APRN Primary Care Provider [phone] Lea Fernando Unavailable [phone] Rachel Ray RN Unavailable [phone] Taina Lyles APRN Primary Care Provider [phone] Monique Tapia LPN Unavailable Unavailable Alvarez Zimmer MD Primary Care Provider [phone] Shaniqua Trevino LPN Unavailable Unavailable Tamera Isabel LPN Unavailable UnavailAlina Bedolla RN Unavailable Unavailab le Monique Tapia LPN Unavailable Unavailable Shaniqua Trevino LPN Unavailable Unavailable Lillie Pritchard MD Primary Care Provider [phone] Wilma Esqueda LPN Unavailable Unavailab le Encounter Details Date Type Department Care Team (Late st Contact Info) Description 01/18/2024 Orders Only External Location [address] [place] [address] Provider, External Social History Tobacco Use Types [...] Appointment [facility] Inter[facility] Radiology [address] [place] [address] 11/13/2025 2:00 PM EST Appointment [facility] [address] [place] [address] 11/20/2025 11:45 AM EST Appointment [facility] [address] [place] [address] 11/20/2025 12:45 PM EST Appointment [facility] Inter[facility] Radiology [address] [place] [address] 11/22/2025 1:00 PM EST Office Visit [place] 4[address] [facility] [address] [place] [address] Barrie Peterson MD [address] [place] [address] 11/28/2025 10:00 AM EST Appointment [facility] Inter[facility] Radiology [address] [place] [address] 11/28/2025 11:00 AM EST Appointment [facility] [address] [place] [address] 12/05/2025 10:00 AM EST Appointment [facility] Inter[facility] Radiology [address] [place] [address] 12/05/2025 11:00 AM EST Appointment [facility] Inter[facility] Radiology [address] [place] [address] 12/20/2025 11:00 AM EST Office Visit [facility] Endocrinology [address] [facility] [address] Miranda Hobson APRN [address] [place] [address] 03/07/2026 9:00 AM EDT Office Visit [place] [facility] [address] [place] [address] Grover Little MD [address] [place] [address] documented as of this encounter [...] documented as of this encounter Care Teams Wetlands Technician Relationship Specialty Start Date End Date Wilma Howard APRN [address] [place] [address] [place] [address] PCP - General 04/03/21 09/30/24 Taina Lyles APRN [address] [place] [address] [place] [address] PCP - General 10/01/24 12/06/24 Alvarez Zimmer MD [address] [place] [address] PCP - General Family Medicine 12/07/24 09/02/25 Lillie Pritchard MD [address] [place] [address] [id number] PCP - General Family Medicine 09/03/25 Lea Fernando [address] [place] [address] 125 [place] [phone] Citizenship Teacher Endocrinology 08/29/24 Rachel Ray, RN [address] [facility] [address] [place] [address] Nurse Practitioner Gastroenterology 09/24/24 Monique Tapia LPN VAL[employer] [place] [address] None TCM Nurse 11/28/24 12/28/24 Shaniqua Trevino LPN None None TCM Nurse 01/15/25 02/14/25 Tamera Isabel LPN VALUE-BASED TRANSFORMATION PROGRAM None Licensed Practical Nurse 05/29/25 Alina Lovett, RN [facility] INTERVENTIONAL RADIOLOGY None Registered Nurse 06/26/25 06/26/25 Monique Tapia LPN VALUE-BASED [place] [address] None TCM Nurse 07/10/25 08/09/25 Shaniqua Trevino LPN None None TCM Nurse 08/21/25 09/20/25 Wilma Esqueda LPN [facility] None TCM Nurse 10/25/25 10/25/25 documented as of this encounter
--- OUTSIDE RECORDS SUMMARY | 2025-11-11 23:02 | XMS_ITS | Encounter Summary ---
Author Organization [facility] Address [address] [place] [address] Care Team Providers Care Health Unit Supervisor Name Role Phone Wilma Howard APRN Primary Care Provider [phone] Lea Fernando Unavailable [phone] Rachel Ray RN Unavailable [phone] Taina Lyles APRN Primary Care Provider [phone] Monique Tapia LPN Unavailable Unavailable Alvarez Zimmer MD Primary Care Provider [phone] Shaniqua Trevino LPN Unavailable Unavailable Tamera Isabel LPN Unavailable UnavailAlina Bedolla RN Unavailable Unavailab le Monique Tapia LPN Unavailable Unavailable Shaniqua Trevino LPN Unavailable Unavailable Lillie Pritchard MD Primary Care Provider [phone] Wilma Esqueda LPN Unavailable Unavailab le Encounter Details Date Type Department Care Team (Late st Contact Info) Description 02/02/2024 Orders Only External Location [address] [place] [address] Provider, External Social History Tobacco Use Types [...] [facility] Interventional Radiology [address] [place] [address] 11/13/2025 2:00 PM EST Appointment [facility] Inter[facility] Radiology [address] [place] [address] 11/20/2025 11:45 AM EST Appointment [facility] Inter[facility] Radiology [address] [place] [address] 11/20/2025 12:45 PM EST Appointment [facility] Interventional Radiology [address] [place] [address] 11/22/2025 1:00 PM EST Office Visit [place] [address] [facility] [address] [place] [address] Barrie Peterson MD [address] [place] [address] 11/28/2025 10:00 AM EST Appointment [facility] Inter[facility] Radiology [address] [place] [address] 11/28/2025 11:00 AM EST Appointment [facility] Inter[facility] Radiology [address] [place] [address] 12/05/2025 10:00 AM EST Appointment [facility] Interventional Radiology [address] [place] [address] 12/05/2025 11:00 AM EST Appointment [facility] Interventional Radiology [address] [place] [address] 12/20/2025 11:00 AM EST Office Visit [facility] Endocrinology [address] [place] [address] Miranda Hobson APRN [address] [place] [address] 03/07/2026 9:00 AM EDT Office Visit [place] [facility] Medicine Specialties [address] [place] [address] Grover Little MD [address] [place] [address] documented as of this encounter [...] as of this encounter Care Teams Health Unit Supervisor Relationship Specialty Start Date End Date Wilma Howard APRN [address] [place] [address] [place] [address] PCP - General 04/03/21 09/30/24 Taina Lyles APRN [address] [place] [address] [place] [address] PCP - General 10/01/24 12/06/24 Alvarez Zimmer MD [address] [place] [phone] PCP - General Family Medicine 12/07/24 09/02/25 Lillie Pritchard MD [address] [place] [address] [id number] PCP - General Family Medicine 09/03/25 Lea Fernando 2[address] [facility] 125 [place] [address] Cylinder Worker Endocrinology 08/29/24 Rachel Ray, RN [address] [facility] [address] [place] [address] Nurse Practitioner Gastroenterology 09/24/24 Monique Tapia LPN VALUE-BASED [place] [address] None TCM Nurse 11/28/24 12/28/24 Shaniqua Trevino LPN None None TCM Nurse 01/15/25 02/14/25 Tamera Isabel LPN VALUE-BASED TRANSFORMATION PROGRAM None Licensed Practical Nurse 05/29/25 Alina Lovett, RN [facility] INTERVENTIONAL RADIOLOGY None Registered Nurse 06/26/25 06/26/25 Monique Tapia LPN VALUE-BASED [place] [address] None TCM Nurse 07/10/25 08/09/25 Shaniqua Trevino LPN None None TCM Nurse 08/21/25 09/20/25 Wilma Esqueda LPN [facility] None TCM Nurse 10/25/25 10/25/25 documented as of this encounter
--- OUTSIDE RECORDS SUMMARY | 2025-11-11 23:02 | XMS_ITS | Encounter Summary ---
Author Organization [facility] [place] Address [address] [place] [address] Care Team Providers Care Invas Tech Name Role Phone Wilma Howard APRN Primary Care Provider [phone] Lea Fernando Unavailable [phone] Rachel Ray RN Unavailable [phone] Taina Lyles APRN Primary Care Provider [phone] Monique Tapia LPN Unavailable Unavailable Alvarez Zimmer MD Primary Care Provider [phone] Shaniqua Trevino LPN Unavailable Unavailable Tamera Isabel LPN Unavailable UnavailAlina Bedolla RN Unavailable Unavailab le Monique Tapia LPN Unavailable Unavailable Shaniqua Trevino LPN Unavailable Unavailable Lillie Pritchard MD Primary Care Provider [phone] Wilma Esqueda LPN Unavailable Unavailab le Encounter Details Date Type Department Care Team (Late st Contact Info) Description 05/23/2024 Orders Only External Location [address] [place] [address] Provider, External Social History Tobacco Use Types [...] Appointment [facility] Interventional Radiology [address] [place] [address] 11/13/2025 2:00 PM EST Appointment [facility] Interventional Radiology [address] [place] [address] 11/20/2025 11:45 AM EST Appointment [facility] Inter[facility] Radiology [address] [place] [address] 11/20/2025 12:45 PM EST Appointment [facility] Interventional Radiology [address] [place] [address] 11/22/2025 1:00 PM EST Office Visit [place] [address] [facility] [address] [place] [address] Barrie Peterson MD [address] [place] [address] 11/28/2025 10:00 AM EST Appointment [facility] Interventional Radiology [address] [place] [address] 11/28/2025 11:00 AM EST Appointment [facility] Inter[facility] Radiology [address] [place] [address] 12/05/2025 10:00 AM EST Appointment [facility] Interventional Radiology [address] [place] [address] 12/05/2025 11:00 AM EST Appointment [facility] Interventional Radiology [address] [place] [address] 12/20/2025 11:00 AM EST Office Visit [facility] Endocrinology [address] [facility] [place] [address] Miranda Hobson APRN [address] [place] [address] 03/07/2026 9:00 AM EDT Office Visit [facility] [facility] [address] [place] [address] Grover Little MD [address] [place] [address] documented as of this encounter [...] documented as of this encounter Care Teams Invas Tech Relationship Specialty Start Date End Date Wilma Howard, ADRI [address] [place] [address] Dr [place], [place] [id number] PCP - General 04/03/21 09/30/24 Taina Lyles APRN [address] [place] [address] [place] [address] PCP - General 10/01/24 12/06/24 Alvarez Zimmer MD [address] [place] [address] PCP - General Family Medicine 12/07/24 09/02/25 Lillie Pritchard MD [address] [place] [address] [id number] PCP - General Family Medicine 09/03/25 Lea Fernando 2195 [facility] 125 [place] [address] Cardiology Coordinator Endocrinology 08/29/24 Rachel Ray, RN [address] [facility] [address] [place] [address] Nurse Practitioner Gastroenterology 09/24/24 Monique Tapia LPN VALUE-[employer] [place] [address] None TCM Nurse 11/28/24 12/28/24 Shaniqua Trevino LPN None None TCM Nurse 01/15/25 02/14/25 Tamera Isabel LPN VALUE-BASED TRANSFORMATION PROGRAM None Licensed Practical Nurse 05/29/25 Alina Lovett, RN [facility]-VASCULAR [facility] INTERVENTIONAL RADIOLOGY None Registered Nurse 06/26/25 06/26/25 Monique Tapia LPN VALUE-[place] [address] None TCM Nurse 07/10/25 08/09/25 Trevino, Shaniqua M, PROFESSIONAL FEE CODER None None TCM Nurse 08/21/25 09/20/[address] [facility] None TCM Nurse 10/25/25 10/25/25 documented as of this encounter
--- OUTSIDE RECORDS SUMMARY | 2025-11-11 23:03 | XMS_ITS | Encounter Summary ---
Author Organization [facility] Address [address] [place] [address] Care Team Providers Care Brake Lining Maker Name Role Phone Wilma Howard APRN Primary Care Provider [phone] Lea Fernando Unavailable [phone] Rachel Ray RN Unavailable [phone] Taina Lyles APRN Primary Care Provider [phone] Monique Tapia LPN Unavailable Unavailable Alvarez Zimmer MD Primary Care Provider [phone] Shaniqua Trevino LPN Unavailable Unavailable Tamera Isabel HOB GRINDER Unavailable UnavailAlina Bedolla RN Unavailable Unavailab le Monique Tapia LPN Unavailable Unavailable Shaniqua Trevino LPN Unavailable Unavailable Lillie Pritchard MD Primary Care Provider [phone] Wilma Esqueda LPN Unavailable Unavailab le Reason for Visit * Reason Onset Date Comments Med Refill Med Refill 08/11/2021 Encounter Details Date Type Department Care Team (Late st Contact Info) Description 07/28/2021 Refill Merissa Valencia [facility] Endocrinology [address] [place] [address] Deysi Antonio MD [address] [facility] [address] [place] [address] Social History Tobacco Use Types Packs/Day Years [...] Dosage: Test Strips Preferred Pharmacy & Location: [facility] Days of medication remaining (if under 3 days please barrie as urgent): Pt is out Best contact number and optimal time of day to reach caller: [phone] Additional comments/information from caller: Note: Please do [...] Appointment [facility] Interventional Radiology [address] [place] [address] 11/13/2025 2:00 PM EST Appointment [facility] Interventional Radiology [address] [place] [address] 11/20/2025 11:45 AM EST Appointment [facility] Interventional Radiology [address] [place] [address] 11/20/2025 12:45 PM EST Appointment [facility] Interventional Radiology [address] [place] [address] 11/22/2025 1:00 PM EST Office Visit [facility] [address] [place] [address] [place] [address] Barrie Peterson MD [address] [place] [address] 11/28/2025 10:00 AM EST Appointment [facility] Interventional Radiology [address] [place] [address] 11/28/2025 11:00 AM EST Appointment [facility] Interventional Radiology [address] [place] [address] 12/05/2025 10:00 AM EST Appointment [facility] Interventional Radiology [address] [place] [address] 12/05/2025 11:00 AM EST Appointment [facility] Interventional Radiology [address] [place] [address] 12/20/2025 11:00 AM EST Office Visit [facility] Endocrinology [address] [place] [address] Miranda Hobson P, RATINGS ANALYST [address] [place] [address] 03/07/2026 9:00 AM EDT Office Visit [facility] [address], [address] [place] [address] Grover Little MD [address] [place] [address] documented as of this encounter Visit Diagnoses [...] documented as of this encounter Care Teams Brake Lining Maker Relationship Specialty Start Date End Date Wilma Howard APRN [address] [place] [address] [place] [address] PCP - General 04/03/21 09/30/24 Taina Lyles APRN [address] [place] [address] [place] [address] PCP - General 10/01/24 12/06/24 Alvarez Zimmer MD [address] [place] [address] PCP - General Family Medicine 12/07/24 09/02/25 Lillie Pritchard MD [address] [place] [address] [id number] PCP - General Family Medicine 09/03/25 Lea Fernando [address] [facility] 125 [place] [address] Circuit Design Engineer Endocrinology 08/29/24 Rachel Ray, RN [address] [facility] [address] [place] [address] Nurse Practitioner Gastroenterology 09/24/24 Monique Tapia LPN VALUE-[place] [address] None TCM Nurse 11/28/24 12/28/24 Shaniqua Trevino LPN None None TCM Nurse 01/15/25 02/14/25 Tamera Isabel LPN VALUE-BASED TRANSFORMATION PROGRAM None Licensed Practical Nurse 05/29/25 Alina Lovett, RN CH-VASCULAR & INTERVENTIONAL RADIOLOGY None Registered Nurse 06/26/25 06/26/25 Monique Tapia LPN VALUE-[place] [address] None TCM Nurse 07/10/25 08/09/25 Shaniqua Treivno LPN None None TCM Nurse 08/21/25 09/20/25 Wilma Esqueda LPN [facility] None TCM Nurse 10/25/25 10/25/25 documented as of this encounter
--- OUTSIDE RECORDS SUMMARY | 2025-11-11 23:03 | XMS_ITS | Encounter Summary ---
Author Organization [facility] Address [address] [place] [address] Care Team Providers Care Buckle Frame Shaper Name Role Phone Lea Fernando Unavailable [phone] Rachel Ray RN Unavailable [phone] Tamera Isabel POLITICAL GEOGRAPHER Unavailable UnavailShaniqua Lomeli POLITICAL GEOGRAPHER Unavailable Unavailable Lillie Pritchard MD Primary Care Provider [phone] Encounter Details Date Type Department Care Team (Latest Contact Info) Description 09/19/2025 Travel Social History Tobacco Use Types Packs/Day [...] do you attend chur or restorationism services? Patient unable to answer [...] more drinks on one occasion? Never 09/03/2025 [facility] - [...] in a halfway (including now)? No 09/18/2025 [facility] Utilities Answer Date [...] t kennedy in the morning (EYE-REAL ESTATE ADMINISTRATOR) to steady your nerves or to [...] Answer Date of Assessment Author Precautions Fall risk;[facility] surveillance 09/19/2025 8:00 PM EDT Viola Knutson RN * Calculated C-SSRS Risk Score (Lifetime/Recent) Answer Date of Assessment Author No Risk Indicated 09/19/2025 8:00 PM EDT Viola Knutson RN * Question Answer Date of Assessment Author 1. Wish to be (Past 1 Month) No 09/19/2025 8:00 PM TAMMYT Viola Knutson RN 2. Non-Specific Active Suici liz Thoughts (Past 1 Month) No 09/19/2025 8:00 PM EDT Rita Knutson RN 6. Suicidal Behavior (Lifetime) No 8:00 PM Viola De La Cruz RN documented as of this encounter Mental Status * Question Answer Entry Date Author Precautions Fall risk;[facility] surveillance 09/19/2025 8:00 PM Viola De La Cruz RN documented in this encounter Plan of Treatment Upcoming Encounters Date Type Department Care Team (Late st Contact Info) Description 11/13/2025 1:00 PM EST Appointment [facility] Interventional Radiology [address] [place] [address] 11/13/2025 2:00 PM EST Appointment [facility] A Interventional Radiology [address] [place] [address] 11/20/2025 11:45 AM EST Appointment [facility] Interventional Radiology [address] [place] [address] 11/20/2025 12:45 PM EST Appointment PAV A Interventional Radiology [address] [place] [facility] [place] [address] 11/22/2025 1:00 PM EST Office Visit [facility] [address] [facility] [address] [place] [address] Barrie Peterson MD [address] [place] [address] 11/28/2025 10:00 AM EST Appointment [facility] Interventional Radiology [address] [place] [address] 11/28/2025 11:00 AM EST Appointment [facility] Interventional Radiology [address] [place] [address] 12/05/2025 10:00 AM EST Appointment [facility] Interventional Radiology [address] [place] [address] 12/05/2025 11:00 AM EST Appointment [facility] Interventional Radiology [address] [place] [address] 12/20/2025 11:00 AM EST Office Visit [facility] Endocrinology [address] [place] [address] Miranda Hobson P, ACROBATIC DANCER [address] [place] [address] [place] [address] 03/07/2026 9:00 AM EDT Office Visit [place] [facility] [address] [place] [address] Grover Little MD [address] [place] [address] documented as of this encounter [...] documented as of this encounter Care Teams Buckle Frame Shaper Relationship Specialty Start Date End Date Lillie Pritchard MD [address] [place] [id number] PCP - General Family Medicine 09/03/25 Lea Fernando 2[address] [facility] [address] [place] [address] Bleach Maker Endocrinology 08/29/24 Rachel Ray, RN [address] [place] [address] Nurse Practitioner Gastroenterology 09/24/24 Tamera Isabel LPN VALUE-BASED TRANSFORMATION PROGRAM None Licensed Practical Nurse 05/29/25 Shaniqua Trevino LPN None None TCM Nurse 08/21/25 09/20/25 documented as of this encounter
--- OUTSIDE RECORDS SUMMARY | 2025-11-11 23:03 | XMS_ITS | Encounter Summary ---
Author Organization [facility] Address [address] [place] [address] Care Team Providers Care Assistant Athletic Trainer Name Role Phone Lea Fernando Unavailable [phone] Rachel Ray RN Unavailable [phone] Tamera Isabel LPN Unavailable [facility] Lillie [place] MD Primary Care Provider [phone] Encounter Details Date Type Department Care Team (Latest Contact Info) Description 09/26/2025 Travel Social History Tobacco Use Types Packs/Day [...] do you attend [facility] or confucianist services? Never 05/29/2025 Do you [...] more drinks on one occasion? Never 09/03/2025 [facility] [...] living in a prison (including now)? No 09/18/2025 [facility] Utilities Answer Date Recorded In the past 12 months has th e [employer], gas, oil, or water company threatened to [...] drink first t kennedy in the morning (EYE-MECHANICAL TEST ENGINEER) to steady your nerves or [...] Appointment [facility] A Interventional Radiology [address] [place] [address] 11/13/2025 2:00 PM EST Appointment [facility] Interventional Radiology [address] [place] [address] 11/20/2025 11:45 AM EST Appointment [facility] Interventional Radiology [address] [place] [address] 11/20/2025 12:45 PM EST Appointment [facility] Interventional Radiology [address] [place] [address] 11/22/2025 1:00 PM EST Office Visit [facility] [address] [place] [address] [place] [address] Barrie Peterson MD [address] [place] [address] 11/28/2025 10:00 AM EST Appointment [facility] Interventional Radiology [address] [place] [address] 11/28/2025 11:00 AM EST Appointment [facility] Interventional Radiology [address] [place] [address] 12/05/2025 10:00 AM EST Appointment [facility] Interventional Radiology [address] [place] [address] 12/05/2025 11:00 AM EST Appointment [facility] A Interventional Radiology [address] [place] [address] 12/20/2025 11:00 AM EST Office Visit [facility] Endocrinology [address] [place] [address] Miranda Hobsno, DIRECTOR CONSTRUCTION SERVICES [address] [facility] 125 [place] [address] 03/07/2026 9:00 AM EDT Office Visit [place] [facility] [address] [place] [address] Grover Little MD [address] [place] [address] documented as of this encounter Visit Diagnoses [...] documented as of this encounter Care Teams Assistant Athletic Trainer Relationship Specialty Start Date End Date Lillie Pritchard MD [address] [place] [id number] PCP - General Family Medicine 09/03/25 Lea Fernando [address] [facility] 125 [place] [address] Yard Labor Supervisor Endocrinology 08/29/24 Rachel Ray, RN [address] [address] Nurse Practitioner Gastroenterology 09/24/24 Tamera Isabel LPN VALUE-BASED TRANSFORMATION PROGRAM None Licensed Practical Nurse 05/29/25 documented as of this encounter
--- OUTSIDE RECORDS SUMMARY | 2025-11-11 23:03 | XMS_ITS | Encounter Summary ---
Author Organization [facility] Address [address] [place] [address] Care Team Providers Care Material Handler Loader Name Role Phone Lea Fernando Unavailable [phone] Rachel Ray RN Unavailable [phone] Tamera Isabel EP TECH Unavailable UnavailShaniqua Lomeli EP TECH Unavailable Unavailable Lillie Pritchard MD Primary Care Provider [phone] Encounter Details Date Type Department Care Team (Latest Contact Info) Description 09/17/2025 Travel Social History Tobacco Use Types Packs/Day [...] more drinks on one occasion? Never 09/03/2025 [facility] - [...] in a chcf (including now)? No 09/18/2025 [facility] Utilities Answer Date Recorded In [...] first t kennedy in the morning (EYE-VIDEO TECHNICIAN) to steady your nerves or to [...] Assessment Author Precautions Fall risk;[facility]do surveillance 09/17/2025 10:00 PM EDT Zabrina John * Over the past 2 weeks, how [...] Date of Assessment Author No Risk Indicated 09/17/2025 4:24 PM EDT Dulce Ashford, RN * Question Answer Date of Assessment Author 1. Wish to be (Past 1 Month) No 025 4:24 PM TAMMYT Dulce Kasper, RN 2. Non-Specific Active Suici liz Thoughts (Past 1 Month) No 09/17/2025 4:24 PM EDT Richa Kasper, RN 6. Suicidal Behavior (Lifetime) No 4:24 PM EDT Dulce Kasper, RN documented as of this encounter Mental Status * Question Answer Entry Date Author Precautions Fall risk;Deonte rodo surveillance 09/17/2025 10:00 PM EDT Alvaro Zabrinakota Hackett documented in this encounter Plan of Treatment Upcoming Encounters Date Type Department Care Team (Late st Contact Info) Description 11/13/2025 1:00 PM EST Appointment [facility] Interventional Radiology [address] [place] [address] 11/13/2025 2:00 PM EST Appointment [facility] Interventional Radiology [address] [place] [address] 11/20/2025 11:45 AM EST Appointment [facility] Interventional Radiology [address] [place] [address] 11/20/2025 12:45 PM EST Appointment [facility] Interventional Radiology [address] [place] [address] 11/22/2025 1:00 PM EST Office Visit [place] [address] [facility] [address] [place] [address] Barrie Peterson MD [address] [place] [address] 11/28/2025 10:00 AM EST Appointment P[facility] A Interventional Radiology [address] [place] [address] 11/28/2025 11:00 AM EST Appointment [facility] A Interventional Radiology [address] [place] [address] 12/05/2025 10:00 AM EST Appointment P[facility] A Interventional Radiology [address] [place] [address] 12/05/2025 11:00 AM EST Appointment P[facility] A Interventional Radiology [address] [place] [address] 12/20/2025 11:00 AM EST Office Visit [facility] Endocrinology [facility] [place] [address] Miranda Hobson, TIRE INSTALLER [address] [facility] 125 [place] [address] 03/07/2026 9:00 AM EDT Office Visit [place] [facility] [address] [place] [address] Grover Little MD [address] [place] [address] documented as of this encounter [...] documented as of this encounter Care Teams Material Handler Loader Relationship Specialty Start Date End Date Lillie Pritchard MD [address] [place] [address] PCP - General Family Medicine 09/03/25 Lea Fernando 219 [facility] 125 [place] [address] Job Setter Honing Endocrinology 08/29/24 Rachel Ray, RN [address] [place] [address] Nurse Practitioner Gastroenterology 09/24/24 Tamera Isaebl LPN VALUE-BASED TRANSFORMATION PROGRAM None Licensed Practical Nurse 05/29/25 Shaniqua Trevino LPN None None TCM Nurse 08/21/25 09/20/25 documented as of this encounter
--- OUTSIDE RECORDS SUMMARY | 2025-11-11 23:04 | XMS_ITS | Encounter Summary ---
Author Organization [facility] Address [address] [place] [address] Care Team Providers Care Enrollment Management Director Name Role Phone Lea Fernando Unavailable [phone] Rachel Ray RN Unavailable [phone] Alvarez Zimmer MD Primary Care Provider [phone] Tamera Isabel TIRE MOLDER Unavailable UnavailAlina Bedolla RN Unavailable Unavailab le Monique Tapia TIRE MOLDER Unavailable Unavailable Shaniqua Trevino TIRE MOLDER Unavailable Unavailable Lillie Pritchard MD Primary Care Provider [phone] Wilma Esqueda TIRE MOLDER Unavailable Unavailab le Reason for Visit * Reason Onset Date Comments Med Refill 03/16/2025 Encounter Details Date Type Department Care Team (Late st Contact Info) Description 03/16/2025 Refill [facility] [address] [place] [address] Alvarez Zimmer [place] [address] Social History Tobacco Use Types [...] How often do you attend [facility] or voodoo services? Patient unable to [...] 03/06/2025 [facility] - Occupational Stress Questionnaire Answer Date [...] drink first t kennedy in the morning (EYE-INFORMATION SYSTEMS ADMINISTRATOR) to steady your nerves or to [...] A Interventional Radiology [address] [place] [address] 11/13/2025 2:00 PM EST Appointment PAV A Interventional Radiology [address] [place] [address] 11/20/2025 11:45 AM EST Appointment PAV A Interventional Radiology [address] [place] [address] 11/20/2025 12:45 PM EST Appointment PAV A Interventional Radiology [address] [place] [address] 11/22/2025 1:00 PM EST Office Visit [facility] [address] [place] [address] Barrie Peterson MD [address] [place] [address] 11/28/2025 10:00 AM EST Appointment P[facility] A Interventional Radiology [address] [place] [address] 11/28/2025 11:00 AM EST Appointment [facility] A Interventional Radiology [address] [place] [address] 12/05/2025 10:00 AM EST Appointment [facility] A Interventional Radiology [address] [place] [address] 12/05/2025 11:00 AM EST Appointment PAV A Interventional Radiology [address] [place] [address] 12/20/2025 11:00 AM EST Office Visit [facility] Endocrinology [address] [place] [address] Miranda Hobson P, BUSINESS SOLUTIONS CONSULTANT [address] [place] [address] 03/07/2026 9:00 AM EDT Office Visit [place] [facility] [address] [place] [address] Grover Little MD [address] [place] [address] documented as of this encounter Visit Diagnoses Not on filedocumented in this encounter Additional Health Concerns Infection Onset Date Last Indicated Resolved Time COVID-19 Rule-Out 10/10/2025 10/10/2025 10/11/2025 4:56 AM EST Respiratory Rule-Out 10/10/2025 10/11/2025 025 6:01 AM EST Assessment Noted Time PHQ-9 Depression Total Score: 0 03/06/20 25 1:21 PM EDT A fall risk assessment has been complete d for the patient 03/05/2025 10:45 AM EDT A Body Mass Index follow-up plan has been documented for the patient 03/14/2025 9:55 AM EDT documented as of this encounter Care Teams Enrollment Management Director Relationship Specialty Start Date End Date Alvarez Zimmer MD [address] [place] [address] PCP - General Family Medicine 12/07/24 09/02/25 Lillie Pritchard MD [address] [place] [address] PCP - General Family Medicine 09/03/25 Lea Fernando [address] [facility] [address] [place] [address] Instructor Of Sociology Endocrinology 08/29/24 Rachel Ray, RN [address] [place] [address] Nurse Practitioner Gastroenterology 09/24/24 Tamera Isabel LPN VALUE-BASED TRANSFORMATION PROGRAM None Licensed Practical Nurse 05/29/25 Alina Lovett, RN CH-VASCULAR & INTERVENTIONAL RADIOLOGY None Registered Nurse 06/26/25 06/26/25 Monique Tapia LPN VALUE-BASED [place] [address] None TCM Nurse 07/10/25 08/09/25 Shaniqua Trevino LPN None None TCM Nurse 08/21/25 09/20/25 Wilma Esqueda LPN [facility] None TCM Nurse 10/25/25 10/25/25 documented as of this encounter
--- OUTSIDE RECORDS SUMMARY | 2025-11-11 23:04 | XMS_ITS | Encounter Summary ---
Author Organization [facility] Address [address] [place] [address] Care Team Providers Care Director Of Scientific Research Name Role Phone Lea Fernando Unavailable [phone] Rachel Ray RN Unavailable [phone] Alvarez Zimmer MD Primary Care Provider [phone] Tamera Isabel PRICK STITCHER Unavailable UnavailAlina Bedolla RN Unavailable Unavailab le Monique Tapia PRICK STITCHER Unavailable Unavailable Shaniqua Trevino PRICK STITCHER Unavailable Unavailable Lillie Pritchard MD Primary Care Provider [phone] Wilma Esqueda PRICK STITCHER Unavailable Unavailab le Reason for Visit * Reason Onset Date Comments Med Refill 04/19/2025 Encounter Details Date Type Department Care Team (Late st Contact Info) Description 04/19/2025 Refill [facility] [place] [address] Alvarez Zimmer MD [place] [address] Social History Tobacco Use [...] do you attend [facility] or restorationism services? Patient unable to answer [...] Recorded Patient Health Questionnaire-2 Score 2 04/10/2025 [facility] - Occupational Stress [...] drink first t kennedy in the morning (EYE-BELLY DUMP DRIVER) to steady your nerves or to get rid of a hangover? 0 10/22/2024 [facility] Questionnaire Score 0 024 Utilities Answer Date Recorded In the past 12 months has th [employer], gas, oil, or water company threatened to [...] PAV A Interventional Radiology [address] [place] [address] 11/13/2025 2:00 PM EST Appointment PAV A Interventional Radiology [address] [place] [facility] [place] [address] 11/20/2025 11:45 AM EST Appointment PAV A Interventional Radiology [address] [place] [address] 11/20/2025 12:45 PM EST Appointment PAV A Interventional Radiology [address] [place] [facility] [address] 11/22/2025 1:00 PM EST Office Visit [facility] [address] [place] [address] Barrie Peterson MD [address] [place] [address] 11/28/2025 10:00 AM EST Appointment PAV A Interventional Radiology [address] [place] [address] 11/28/2025 11:00 AM EST Appointment P[facility] A Interventional Radiology [address] [place] [address] 12/05/2025 10:00 AM EST Appointment PAV A Interventional Radiology [address] [place] [facility] [address] 12/05/2025 11:00 AM EST Appointment PAV A Interventional Radiology [address] [facility] [address] 12/20/2025 11:00 AM EST Office Visit [facility] Endocrinology [address] [place] [address] Miranda Hobson P, BAGGER MEAT [address] [place] [address] 03/07/2026 9:00 AM EDT Office Visit [place] [facility] Medicine Specialties [address] [place] [address] Grover Little MD [address] [place] [address] documented as of this encounter Visit Diagnoses [...] of this encounter Care Teams Director Of Scientific Research Relationship Specialty Start Date End Date Alvarez Zimmer MD [address] [place] [address] PCP - General Family Medicine 12/07/24 09/02/25 Lillie Pritchard MD [address] [place] [id number] PCP - General Family Medicine 09/03/25 Lea Fernando [address] [place] [address] 125 [place] [address] Cattle Tester Endocrinology 08/29/24 Rachel Ray, RN 740 [facility] [address] [place] [address] Nurse Practitioner Gastroenterology 09/24/24 Tamera Isabel LPN VALUE-BASED TRANSFORMATION PROGRAM None Licensed Practical Nurse 05/29/25 Alina Lvoett, RN CH-VASCULAR & INTERVENTIONAL RADIOLOGY None Registered Nurse 06/26/25 06/26/25 Monique Tapia LPN VALUE-BASED [place] [address] None TCM Nurse 07/10/25 08/09/25 Shaniqua Trevino LPN None None TCM Nurse 08/21/25 09/20/25 Wilma Esqueda LPN [facility] None TCM Nurse 10/25/25 10/25/25 documented as of this encounter
--- OUTSIDE RECORDS SUMMARY | 2025-11-11 23:04 | XMS_ITS | Data Portability ---
Author Organization [facility] [employer] - Rosemarie Jurado MD [facility] Address [address] [place] [id number] Care Team Providers Care Lap Welder Name Role Phone ERYN PARKINSON Primary Care Provider [facility] Jefferson pizarro Provider Assessment Encounter Date Assessment Date [...] Jurado MD [facility] ([facility]), [facility], [address], 3 16:41:24 drug screen, urine - Meds: NO CURRENT MEDS 2022 023 [email or web address] Rosemarie Jurado MD [facility] (In House Lab), [facility], [address], 3 12:54:43 drug screen, urine - Meds: 2022 023 nishant Jurado MD [facility] (In House Lab), [facility], [address], 3 11:50:47 CBC w/ auto diff 2022 023 nishant Jurado MD [facility] (In House Lab), [facility], [address], 3 07:38:35 hepatic function panel, serum 2022 023 SUNITA Jurado MD [facility] (In House Lab), [facility] [place], [address], 3 09:40:53 gamma-gluta myl transferase (ggt), serum 2022 023 SUNITA Jurdao MD [facility] (In House Lab), [facility], [address], 3 09:40:54 venipunctur e 2022 023 nishant Jurado MD [facility] ([facility]), [facility], [address], 3 07:38:43 Referral None recorded. Procedures medial branch block, lumbar (PROC) - l4/5, l5/S1 bilateral, dr joseph 2022 023 [email or web address] [facility], [address] [place] [address], [facility], [address], [place], [address], 3 13:25:14 Surgeries None recorded. Imaging MRI, lumbar spine, w/o contrast 2022 023 [facility] (Imaging), [address] [facility], [place], [address], 3 17:05:25 Medication Orders hydrocodone 10 mg-acetamin ophen 325 mg tablet 2022 023 [facility], [address] [place], [address], 3 10:25:56 hydrocodone 10 mg-acetamin ophen 325 mg tablet 2022 023 [facility], [address] [place], [address], 3 10:25:55 hydrocodone 10 mg-acetamin ophen 325 mg tablet [address] [facility], [address] [place], [address], 3 10:21:09 hydrocodone 10 mg-acetamin ophen 325 mg tablet 2022 023 [facility], [address] [place], [address], 3 15:01:34 Patient TargetsNo targets recorded. Patient Instructions Encounter Date Encounter Id Patient Instructions Last Modified By Organization Details Last Modified Time 04/04/2023 [id number] Take medications EXACTLY as instructed. Call office for any problems DO NOT run out of medications and medications should last till next appointment. Notify office if going to be late or need to reschedule. [email or web address] Not available 03/28/2023 10:53:16 05/31/2023 [id number] Take medication as directed. Keep all appointments [...] Rosemarie Jurado MD [facility] ([facility] Lab) [address] [place] [address], [address], 11/27/2022 09:40:55 11/26/19 23 11/26/2022 CBC abnormal status high Not Available Genaro Jurado MD [facility] (In [facility] Lab) [address] [place] [address], [address], 11/27/2022 09:40:55 11/26/1911/26/2022 CBC abnormal status low Not Available Genaro Jurado MD [facility] ([facility] House Lab) [address] [place] [address], [address], 11/27/2022 09:40:55 11/26/19 23 11/27/2022 GGT GGT 103 IU/L 0-60 high Not Available Rosemarie Jurado MD [facility] ([facility] Lab) [address] [place] [address], [address], 11/27/2022 09:40:54 11/26/19 23 11/27/2022 RENAL PANEL (10) glucose 317 mg/dL 70-99 high Not Available Rosemarie Jurado MD [facility] ([facility]) [address] [place] [address], [address], 11/27/2022 09:40:54 11/26/19 23 11/27/2022 RENAL PANEL (10) BUN 10 mg/dL 8-27 Not Available Rosemarie Jurado MD [facility] (In House Lab) [address] [place], [address], 11/27/2022 09:40:54 11/26/19 23 11/27/2022 RENAL PANEL (10) creatinine 0.74 mg/dL 0.57-1 .00 Not Available Rosemarie Jurado MD [facility] (In House Lab) [address] [place], [address], 11/27/2022 09:40:54 11/26/19 23 11/27/2022 RENAL PANEL (10) BUN/creatini ne ratio 14 12-28 Not Available Genaro Jurado MD [facility] (In House Lab) [address] [place], [address], 11/27/2022 09:40:54 11/26/19 23 11/27/2022 RENAL PANEL (10) sodium 139 mmol/ L 134-14 4 Not Available Rosemarie Jurado MD [facility] (In House Lab) [address] [place], [address], 11/27/2022 09:40:54 11/26/19 23 11/27/2022 RENAL PANEL (10) potassium 4.4 mmol/ L 3.5-5. 2 Not Available Rosemarie Jurado MD [facility] (In House Lab) [address] [place], [address], 11/27/2022 09:40:54 11/26/19 23 11/27/2022 RENAL PANEL (10) chloride 101 mmol/ L 96-106 Not Available Rosemarie Jurado MD [facility] (In House Lab) [address] [place], [address], 11/27/2022 09:40:54 11/26/19 23 11/27/2022 RENAL PANEL (10) carbon dioxide, total 25 mmol/ L 20-29 Not Available Rosemarie Jurado MD [facility] (In House Lab) [address] [place], [address], 11/27/2022 09:40:54 11/26/19 23 11/27/2022 RENAL PANEL (10) calcium 8.7 mg/dL 8.7-10 .3 Not Available Rosemarie Jurado MD [facility] (In House Lab) [address] [place] [address], [address], 11/27/2022 09:40:54 11/26/19 23 11/27/2022 RENAL PANEL (10) phosphorus 3.9 mg/dL 3.0-4. 3 Not Available Rosemarie Jurado MD [facility] (In House Lab) [address] [place] [address], [address], 11/27/2022 09:40:54 11/26/19 23 11/27/2022 RENAL PANEL (10) albumin 3.7 g/dL 3.8-4. 9 low Not Available Rosemarie Jurado MD [facility] (In House Lab) [address] [place] [address], [address], 11/27/2022 09:40:54 11/26/1911/27/2022 HEPAT IC FUNCT ION PANEL (7) protein, total 7.2 g/dL 6.0-8. 5 Not Available Rosemarie Jurado MD [facility] (In House Lab) [address] [place] [address], [address], 11/27/2022 09:40:53 11/26/1911/27/2022 HEPAT IC FUNCT ION PANEL (7) bilirubin, total 1.3 mg/dL 0.0-1. 2 high Not Available Rosemarie Jurado MD [facility] (In House Lab) [address] [place] [address], [address], 11/27/2022 09:40:53 11/26/19 23 11/27/2022 HEPAT IC FUNCT ION PANEL (7) bilirubin, direct 0.51 mg/dL 0.00-0 .40 high Not Available Rosemarie Jurado MD [facility] (In House Lab) [address] [place] [address], [address], 11/27/2022 09:40:53 11/26/19 23 11/27/2022 HEPAT IC FUNCT ION PANEL (7) alkaline phosphatase 182 IU/L 44-121 high Not Available Hilraio Jurado MD [facility] ([facility]) [address] [place], [address], 11/27/2022 09:40:53 11/26/19 23 11/27/2022 HEPAT IC FUNCT ION PANEL (7) AST (SGOT) 57 IU/L 0-40 high Not Available Rosemarie Jurado MD [facility] (In House Lab) [address] [place], [address], 11/27/2022 09:40:53 11/26/19 23 11/27/2022 HEPAT IC FUNCT ION PANEL (7) ALT (SGPT) 25 IU/L 0-32 Not Available Rosemarie Jurado MD [facility] (In House Lab) [address] [place], [address], 11/27/2022 09:40:53 11/26/19 23 11/26/2022 UDM LABCO RP-U1 0 UNBUN D+ALC +SVT please note: Commen t Drug- test resul ts shoul d be inter prete d in the [facility] clini jennifer infor matdisha n. Patie nt metab olic varia bles, speci fic drug chemi stry, and speci men christi cteri stics can affec t test outco me. Techn ical consu ltati on is avail able if a test resul t is incon siste nt with an expec michael outco me. (emanavid oviedo or call toll- free [phone]) . Drug brand s, if liste d herei n, are trade lorenzo of their respe ctive scrum product owner s. Not Available Rosemarie Jurado MD [facility] (In House Lab) [address] [place], [address], 12/01/2022 09:42:55 11/26/19 23 11/27/2022 UDM LABCO RP-U1 0 UNBUN D+ALC +SVT amphetamines screen, urine Negati ve NG/mL cutoff =1000 Not Available Rosemarie Jurado MD [facility] ([facility] Lab) [address] [place] [address], [address], 12/01/2022 09:42:55 11/26/19 23 11/27/2022 UDM LABCO RP-U1 0 UNBUN D+ALC +SVT barbiturates screen, urine See Final Result s NG/mL cutoff =200 Not Available Rosemarie Jurado MD [facility] (In House Lab) [address] [place] [address], [address], 12/01/2022 09:42:55 11/26/19 23 11/27/2022 UDM LABCO RP-U1 0 UNBUN D+ALC +SVT benzodiazepi lisbet screen, urine Negati ve NG/mL cutoff =200 Not Available Rosemarie Jurado MD [facility] (In House Lab) [address] [place] [address], [address], 12/01/2022 09:42:55 11/26/19 23 11/27/2022 UDM LABCO RP-U1 0 UNBUN D+ALC +SVT cannabinoid screen, urine Negati ve NG/mL cutoff =20 Not Available Rosemarie Jurado MD [facility] (In House Lab) [address] [place] [address], [address], 12/01/2022 09:42:55 11/26/19 23 11/27/2022 UDM LABCO RP-U1 0 UNBUN D+ALC +SVT cocaine (metab.) screen, urine Negati ve NG/mL cutoff =300 Not Available Rosemarie Jurado MD [facility] (In House Lab) [address] [place] [address], [address], 12/01/2022 09:42:55 11/26/19 23 11/27/2022 UDM LABCO RP-U1 0 UNBUN D+ALC +SVT opiate screen, urine Negati ve NG/mL cutoff =300 Opiat e test inclu hal Codei ne, Morph ine, [place] morph one, [place] codon e. Not Available Rosemarie Jurado MD [facility] ([facility]) [address] [place] [address], [address], 12/01/2022 09:42:55 11/26/19 23 11/27/2022 UDM LABCO RP-U1 0 UNBUN D+ALC +SVT 6-acetylmorp svitlana, urine Negati ve NG/mL cutoff =10 Not Available Rosemarie Jurado MD [facility] ([facility]) [address] [place] [address], [address], 12/01/2022 09:42:55 11/26/19 23 11/27/2022 UDM LABCO RP-U1 0 UNBUN D+ALC +SVT oxycodone/ox ymorphone, urine Negati ve NG/mL cutoff =100 Test inclu hal Oxyco done and Oxymo rphon e Not Available Rosemarie Jurado MD [facility] ([facility]) [address] [place] [address], [address], 12/01/2022 09:42:55 11/26/19 23 11/27/2022 UDM LABCO RP-U1 0 UNBUN D+ALC +SVT methadone screen, urine Negati ve NG/mL cutoff =300 Not Available Rosemarie Jurado MD [facility] (In [facility]) [address] [place] [address], [address], 12/01/2022 09:42:55 11/26/19 23 11/27/2022 UDM LABCO RP-U1 0 UNBUN D+ALC +SVT buprenorphin e, urine Negati ve NG/mL cutoff =10 Not Available Rosemarie Jurado MD [facility] (In [facility]) [address] [place] [address], [address], 12/01/2022 09:42:55 11/26/19 23 11/27/2022 UDM LABCO RP-U1 0 UNBUN D+ALC +SVT ethanol, urine Negati ve mg/dL cutoff =0.020 Not Available Rosemarie Jurado MD [facility] (In [facility]) [address] [place] [address], [address], 12/01/2022 09:42:55 01/06/11/27/2022 UDM LABCO RP-U1 0 UNBUN D+ALC +SVT creatinine, urine 262.9 mg/dL 20.0-3 00.0 Not Available Rosemarie Jurado MD [facility] (In [facility] Lab) [address] [place], [address], 12/01/2022 09:42:55 11/26/19 23 11/27/2022 UDM LABCO RP-U1 0 UNBUN D+ALC +SVT pH, urine 6.2 4.5-8. 9 Not Available Rosemarie Jurado MD [facility] (In [facility]) [address] [place], [address], 12/01/2022 09:42:55 04/04/2004/04/2023 BENZO DIAZE TRE CONFI RMATI ON,UR INE abnormal status abnormal Not Available Genaro Jurado MD [facility] ([facility]) [address] [place] [address], [address], 04/11/2023 16:41:25 04/04/20 23 04/05/2023 UDM LABCO RP-U1 0 UNBUN D+ALC +SVT please note: Commen t Drug- test resul ts tiffanie d be inter prete d in the [facility] of clini jennifer infor hayley n. Patie nt metab olic varia bles, speci fic drug chemi stry, and speci men christi cteri stics can affec t test outco me. Techn ical consu ltati on is avail able if a test resul t is incon siste nt with an expec michael outco me. (emai l-asim hicks gemkota or call toll- free [phone]) . Drug brand s, if liste d herei n, are trade lorenzo of their respe ctive scrum product owner s. Not Available Rosemarie Jurado MD [facility] ([facility]) [address] [place], [address], 04/11/2023 16:41:24 04/04/20 23 04/07/2023 UDM LABCO RP-U1 0 UNBUN D+ALC +SVT amphetamines screen, urine Negati ve NG/mL cutoff =1000 Not Available Rosemarie Jurado MD [facility] ([facility]) [address] [place] [address], [address], 04/11/2023 16:41:24 04/04/20 23 04/07/2023 UDM LABCO RP-U1 0 UNBUN D+ALC +SVT barbiturates screen, urine Negati ve NG/mL cutoff =200 Not Available Rosemarie Jurado MD [facility] (In House Lab) [address] [place] [address], [address], 04/11/2023 16:41:24 04/04/20 23 04/07/2023 UDM LABCO RP-U1 0 UNBUN D+ALC +SVT benzodiazepi lisbet screen, urine See Final Result s NG/mL cutoff =200 Not Available Rosemarie Jurado MD [facility] (In House Lab) [address] [place] [address], [address], 04/11/2023 16:41:24 04/04/20 23 04/07/2023 UDM LABCO RP-U1 0 UNBUN D+ALC +SVT cannabinoid screen, urine Negati ve NG/mL cutoff =20 Not Available Rosemarie Jurado MD [facility] (In House Lab) [address] [place] [address], [address], 04/11/2023 16:41:24 04/04/20 23 04/07/2023 UDM LABCO RP-U1 0 UNBUN D+ALC +SVT cocaine (metab.) screen, urine Negati ve NG/mL cutoff =300 Not Available Rosemarie Jurado MD [facility] ([facility]) [address] [place] [address], [address], 04/11/2023 16:41:24 04/04/20 23 04/07/2023 UDM LABCO RP-U1 0 UNBUN D+ALC +SVT opiate screen, urine Negati ve NG/mL cutoff =300 Opiat e test inclu hal Codei ne, Morph ine, [place] morph one, [place] codon e. Not Available Rosemarie Jurado MD [facility] (In House Lab) [address] [place] [address], [address], 04/11/2023 16:41:24 04/04/20 23 04/07/2023 UDM LABCO RP-U1 0 UNBUN D+ALC +SVT 6-acetylmorp svitlana, urine Negati ve NG/mL cutoff =10 Not Available Rosemarie Jurado MD [facility] (In House Lab) [address] [place] [address], [address], 04/11/2023 16:41:24 04/04/20 23 04/07/2023 UDM LABCO RP-U1 0 UNBUN D+ALC +SVT oxycodone/ox ymorphone, urine Negati ve NG/mL cutoff =100 Test inclu hal Oxyco done and Oxymo rphon e Not Available Rosemarie Jurado MD [facility] (In House Lab) [address] [place] [address], [address], 04/11/2023 16:41:24 04/04/20 23 04/07/2023 UDM LABCO RP-U1 0 UNBUN D+ALC +SVT methadone screen, urine Negati ve NG/mL cutoff =300 Not Available Rosemarie Jurado MD [facility] (In House Lab) [address] [place] [address], [address], 04/11/2023 16:41:24 04/04/20 23 04/07/2023 UDM LABCO RP-U1 0 UNBUN D+ALC +SVT buprenorphin e, urine Negati ve NG/mL cutoff =10 Not Available Rosemarie Jurado MD [facility] (In House Lab) [address] [place] [address], [address], 04/11/2023 16:41:24 04/04/20 23 04/07/2023 UDM LABCO RP-U1 0 UNBUN D+ALC +SVT ethanol, urine Negati ve mg/dL cutoff =0.020 Not Available Rosemarie Jurado MD [facility] (In House Lab) [address] [place] [address], [address], 04/11/2023 16:41:24 04/04/20 23 04/07/2023 UDM LABCO RP-U1 0 UNBUN D+ALC +SVT creatinine, urine 216.4 mg/dL 20.0-3 00.0 Not Available Rosemarie Jurado MD [facility] (In [facility]) [address] [place], [address], 04/11/2023 16:41:24 04/04/20 23 04/07/2023 UDM LABCO RP-U1 0 UNBUN D+ALC +SVT pH, urine 6.8 4.5-8. 9 Not Available Rosemarie Jurado MD [facility] (In House Lab) [address] [place], [address], 04/11/2023 16:41:24 Result Notes None recorded. Problems Name Problem SNOMED Code Status Onset Date Resolution Date Notes Provider Name and Address Organization Details Recorded Time Chronic neck pain 648446460118 7 Active 2022 [facility] 10:56:03 Chronic back pain 932009886 Active 2022 [facility] 10:56:12 Pain of knee region 6521877926 Active 2022 bilateral [facility] 10:56:40 Deep venous thrombosi s 495391066 Active 2022 [facility] 10:57:25 Diabetes mellitus 65110470 Active 2022 [facility] 10:57:35 Chronic urinary tract infection 833170602 Active 2022 [facility] 10:57:48 Acid reflux 141273918 Active 2022 [facility] 10:57:58 Ulcer 642689053 Active 2022 [facility] 10:58:06 Obesity 958656102 Active 2022 [facility] 10:58:14 Irritable bowel syndrome 44433571 Active 2022 [facility] 10:58:23 Bilateral cataracts 69540204 Active 2022 [facility] 10:58:39 Sinusitis 39250122 Active 2022 [facility] 10:58:47 Hearing loss 00994773 Active 2022 [facility] 10:58:55 Sudden visual loss 78534279 Active 2022 [facility] 10:59:11 Temporoma ndibular joint disorder 15920662 Active 2022 [facility] 10:59:24 Has difficult y with speech 553789684 Active 2022 [facility] 10:59:34 Syncope 428578430 Active 2022 [facility] 11:40:54 Osteoarth ritis 218287472 Active 2022 [facility] 11:41:08 Carpal tunnel syndrome 55239595 Active 2022 [facility] 11:41:19 Degenerat ion of intervert ebral disc 20262932 Active 2022 [facility] 11:41:33 Headache 58921063 Active 2022 [facility] 11:41:41 Migraine 37778002 Active 2022 [facility] 11:41:48 Injury of head 24447761 Active 2022 [facility] 11:41:58 Chronic confusion 174568432 Active 2022 [facility] 11:42:08 Amnesia 50429233 Active 2022 [facility] 11:42:28 Asthma 238928256 Active 2022 [facility] 11:42:36 Sleep apnea 08461966 Active 2022 [facility] 11:42:44 Depressiv e disorder 42832838 Active 2022 [facility] 11:42:51 Anxiety 95610711 Active 2022 [facility] 11:42:59 Problem Notes None recorded. Procedures Surgical [...] Insulin Syringe 0.3 mL 31 gauge x 04/05 Use as instructe d TO INJECT twice [...] 2nd Gen Pen Needle 32 gauge x /32 USE TWICE DAILY DIRECTED FOR INSULIN INJECTION [...] Address Organization Details Last Updated DateTime 3 45808.5 9 g 30.8 kg/m2 165.1 cm 97.9 [degF] 16 /min 80 /min 117/70 mm[Hg] Tayler [facility] 3 08:42:41 Date Recorded Body height Body temperature Respiratory rate Heart rate Body mass index (BMI) Body weight Systolic And Diastolic Provider Name and Address Organization Details Last Updated DateTime 3 165.1 cm 96.8 [degF] 16 /min 74 /min 32 kg/m2 74216.7 4 g 105/57 mm[Hg] Shwetha [facility] 3 10:24:26 Date Recorded Body height Body temperature Respiratory rate Heart rate Systolic And Diastolic Provider Name and Address Organization Details Last Updated DateTime 3 165.1 cm 97.8 [degF] 16 /min 76 /min 121/67 mm[Hg] Neftali [facility] 3 14:50:43 Date Recorded Body height Body temperature Respiratory rate Body mass index (BMI) Body weight Heart rate Systolic And Diastolic Provider Name and Address Organization Details Last Updated DateTime 3 165.1 cm 97.5 [degF] 16 /min 32 kg/m2 44001.7 4 g 73 /min 99/59 mm[Hg] Shwethamarifer [facility] 3 10:18:56 Social History Question Answer Notes LastModified by [employer] Details LastModified Time Tobacco Smoking Status Never Smoker [facility] 11/25/2022 11:47:51 Are You Blind Or Do You Have Difficulty Seeing? Yes [email or web address] Information not available 11/26/2022 Are You Deaf Or Do You Have Serious Difficulty Hearing? Yes [email or web address] Information not available 11/26/2022 What Is The Highest Grade Or Level Of School You Have Completed Or The Highest Degree You Have Received? HV03051-5 [email or web address] Information not available 11/26/2022 What Is Your Relationship Status? [email or web address] Information not available 11/25/2022 Do You Have Difficulty Walking Or Climbing Stairs? Yes [email or web address] Information not available 11/26/2022 Are You Currently In School? No [email or web address] Information not available 11/25/2022 Sex: Unknown Functional Status Question Answer Note LastModified by Organizat ion Details LastModified Time Do you use any illicit or recreational drugs? No [email or web address] Information not available 11/25/2022 What is your level of alcohol consumption? None [email or web address] Information not available 11/25/2022 Are you currently employed? No disabled since 2016 [email or web address] Information not available 11/25/2022 Are you able to walk independently without assistance or assistive devices? YESASSIST [email or web address] Information not available 11/26/2022 Do you have difficulty doing errands alone? Yes [email or web address] Information not available 11/26/2022 Are you able to care for yourself independently? Yes [email or web address] Information not available 11/26/2022 Do you have difficulty dressing, bathing, grooming, or toileting? No [email or web address] Information not available 11/26/2022 Mental Status Question Answer Note LastModified by Organizat ion Details LastModified Time Do you feel stressed (tense, restless, nervous, or anxious, or unable to sleep at night)? [id number] [email or web address] Information not available 11/26/2022 Do you have difficulty concentrating, remembering or making decisions? Yes [email or web address] Information no t available 11/26/2022 Family History Relationship Description Onset Age of this Age Resolved Age Notes LastModified by Organization Details LastModified Time Mother Disorder of thyroid gland [email or web address] Not available 08:44:08 Mother Diabetes mellitus [email or web address] Not available 08:44:40 Mother Arthritis [email or web address] Not ender ilable 11/26/2022 08:45:14 Father Diabetes mellitus [email or web address] Not available 08:44:40 Father Arthritis [email or web address] Not ender ilable 11/26/2022 08:45:14 Sister Diabetes mellitus [email or web address] Not available 08:44:40 Sister Arthritis [email or web address] Not ender ilable 11/26/2022 08:45:14 Son Diabetes mellitus [email or web address] Not available 08:44:40 Son Arthritis Not ender ilable 11/26/2022 08:45:15 Son Arthritis [email or web address] Not ender ilable 11/26/2022 08:45:15 Medical History Condition Response Coronary Artery Disease Y Gout Y Head Trauma/Injury Y Hernia N Thyroid Problems N Depression Y COPD N Anemia N MVA N Ulcers N Heart Attack (SD) N Diabetes Y Anxiety Disorder Y Bleeding [...] ICD10 Code Diagnosis IMO Codes Diagnosis Note [id number] Allen Joseph MD [address] [place] [phone] 11/26/2022 07:50:17 12/08/2022 17:05:25 Long-term current use of opiate analgesic drug 5188701485 13289 Z79.891 Diagnostic /Lab: Order Presumptiv e UDT [...] . Spinal keith nosis of lumbar region 85822330 M48.062 Neuritis d ue to rupture of lumbar intervertebral disc 2083804484 M51.16 [id number] Allen Joseph MD [address] [place] [phone] 4 01/28/2023 10:04:09 02/14/2023 07:48:53 Long-term current use of opiate analgesic drug 6182779674 79100 Z79.891 Diagnostic /Lab: Order Presumptiv e UDT [...] and carisoprod ol). Spondylosi s without myelopathy 60726697 M47.9 Pain of le ft knee region 0849967428 17476 M25.732 [id number] ANAMARIA GARCIA MD [address] [place] [phone] 4 04/04/2023 14:41:31 04/04/2023 15:22:14 Long-term current use of opiate analgesic drug 8466798529 11656 Z79.891 Lumbar spondylosis 12133 0009 M47.235 [id number] ANAMARIA GARCIA MD [address] [place] [address] [phone] 05/31/2023 10:10:07 06/02/2023 10:56:00 Osteoarthritis 751096626 M19.90 Lumbar spondylosis 44208 0009 M47.896 Long-term current use of opiate analgesic drug [id number] 64706 Z79.891 Diagnostic /Lab: Order Presumptiv e UDT [...] (MEDICARE REPLACEMENT/A DVANTAGE - PPO) Gabi Zimmer [id number] Gabi Zimmer Notes Date Note Type Note [...] [facility] 01/28/2023 11:22:24 04/04/2023 text/html GERARD report reviewed and compliant. Fell a week [...] does want any injections. ANAMARIA GARCIA MD [address] [facility], [place], [phone], [facility] 04/04/2023 15:01:36 05/31/2023 text/html GERARD report reviewed and compliant . She had a bladder stim put in yesterday. Pain is near the site. of insertions. Pain is intermittent.. Pain is intense and severe. Pain meds work ok ANAMARIA GARCIA MD [address] [facility], [place], [phone], [facility] 05/31/2023 10:29:08 OBGyn Episode No OBEpisode recorded.
--- OUTSIDE RECORDS SUMMARY | 2025-11-11 23:04 | XMS_ITS | Encounter Summary ---
Author Organization [employer] ([place], [place], [place], [place], [place]) Address [address] [place] [address] Care Team Providers Care Monogram Operator Name Role Phone Taina Lyles ADRI Primary Care Provider Encounter Details Date Type Department Care Team (Late st Contact Info) Description 07/08/2021 Transcribed Document [facility] Family Medicine [facility] [place] [address] ProviderWilliam MD [address] [place] [address] [id number] Social History Tobacco Use Types Packs/Day Years [...] JENNIFER E., RN - 07/08/2021 9:31 EDT documented in this encounter Plan of Treatment Not on file documented as of this encounter Visit Diagnoses Not on filedocumented in this encounter Care Teams Monogram Operator Relationship Specialty Start Date End Date Taina Lyles, LYRIC WRITER [address] [place] [address] PCP - General Nurse Practitioner 06/15/23 documented as of this encounter
--- OUTSIDE RECORDS SUMMARY | 2025-11-11 23:04 | XMS_ITS | Encounter Summary ---
Author Organization [employer] ([place], [place], [place], [place], [place]) Address [address] [place] [address] Care Team Providers Care Loading Machine Adjuster Name Role Phone Taina Lyles APRN Primary Care Provider [phone] Encounter Details Date Type Department Care Team (Late st Contact Info) Description 09/15/2021 Transcribed Document [facility] [place] [address] [place] [address] ProviderWilliam MD [address] [place] [address] Social History Tobacco Use Types Packs/Day Years [...] Reyes MD - 09/15/2021 3:29 PM CDT [address] [address] OPERATIVE REPORT PATIENT IDENTIFICATION: MONIKA ZIMMER (Female - 1960) ACCOUNT / UNIT NUMBER: [id number] / [id number] PRIMARY CARE PHYSICIAN: ERYN PARKINSON APRN PATIENT LOCATION: [facility] [place] AD[place] DATE / TIME: 09/15/21 0646 DISCHARGE [...] follow her diet, avoiding caffeine or nicotine. /[id number] Dictated By: VOLODYMYR VILLARREAL E-Signed By: ALDO [id number] [id number] [\R\ rep ct labl] [\R\ rep ct ivnm] Medical Disclaimer: This report is to be considered preliminary until reviewed and signed. documented in this encounter Plan of Treatment Not on file documented as of this encounter Visit Diagnoses Not on filedocumented in this encounter Care Teams Loading Machine Adjuster Relationship Specialty Start Date End Date Taina Lyles, ADRI [address] [place] [address] PCP - General Nurse Practitioner 06/15/23 documented as of this encounter
--- OUTSIDE RECORDS SUMMARY | 2025-11-11 23:04 | XMS_ITS | Clinical Summary ---
Author Organization [employer] ([place], [place], [place], [place], [place]) Address [address] [place] [address] Care Team Providers Care Paint Line Production Supervisor Name Role Phone Trupti Taina Burt APRN Primary Care Provider [phone] Allergies No known active allergies Medications * [...] Date Beau rded Speak language other than Chinese at home Not on file 12/01/2023 Want [...] COVID-19 VACCINE ( - 2023-2 5 season) 2025 Influenza Vaccine (#1) 2025 9, 08/23/2018, 08/10/2016, Additional history exists Lipid Panel 05/26/2026 05/26/2023, 06/21, 09/09/2020 DTAP/TDAP/TD VACCINES (2 - T d or Tdap) 07/17/2029 07/17/2019 Shingles Vaccine (Zoster) Completed 10/30/2019, Medical Devices Implanted Type Area Pipe Finishing Supervisor Device Identifier Shelf Expiration Date Model / Serial / Lot Kt Lead Tined 1201 - [id number] Implanted:Qty: 1 on 07/01/2023 by Rory Villarreal MD at [facility] IMPLANTS N/A: Sacrum AXONICS 1201 / [id number] 5 / Neurostimulator Rechrgble R20 5101 - [id number] Implanted:Qty: 1 on 07/01/2023 by Rory Villarreal MD at [facility] IMPLANTS N/A: Sacrum AXONICS 5101 / [id number] / Procedures Procedure Name Priority Date/Time [...] 4:24 AM EDT 07/02/2021 8:24 AM EDT [facility] Historical Provider PATHOLOGY/CYTOLOGY ORDE LOAN Final Result [facility] [address] [id number] [phone] from Last 3 Months or Most Recently Relevant to Health Maintenance Insurance [employer] MEDICARE PPO Care Teams Paint Line Production Supervisor Relationship Specialty Start Date End Date Taina Lyles APRN [address] [place] [address] PCP - General Nurse Practitioner 06/15/23
--- OUTSIDE RECORDS SUMMARY | 2025-11-11 23:04 | XMS_ITS | Encounter Summary ---
Author Organization [facility] Address [address] [place] [address] Care Team Providers Care Epic Prelude Analyst Name Role Phone Lea Fernando Unavailable [phone] Rachel Ray RN Unavailable [phone] Alvarez Zimmer MD Primary Care Provider [phone] Tamera Isabel SPRAYER INSECTICIDE Unavailable UnavailAlina Bedolla RN Unavailable Unavailab le Monique Tapia SPRAYER INSECTICIDE Unavailable Unavailable Shaniqua Trevino SPRAYER INSECTICIDE Unavailable Unavailable Lillie Pritchard MD Primary Care Provider [phone] Wilma Esqueda SPRAYER INSECTICIDE Unavailable Unavailab le Reason for Visit * Reason Onset Date Comments Med Refill 04/23/2025 Encounter Details Date Type Department Care Team (Late st Contact Info) Description 04/23/2025 Refill [facility] [place] [address] Alvarez [place]immer [place] [address] Altered mental status, unspecified altered [...] you attend [facility] or yarsanism services? Patient unable to [...] Score 2 04/10/2025 [facility] - Occupational Stress Questionnaire Answer Date [...] drink first t kennedy in the morning (EYE-SIDING STAPLER) to steady your nerves or to get rid of a hangover? 0 10/22/2024 CAGE Questionnaire Score 0 024 Utilities Answer Date Recorded In the past 12 months has th [employer], gas, oil, or water company threatened to [...] zinc sulfate 220 mg sent to [facility] 03/01/2025. Refills remain available at the pharmacy. 90 day supply plus 1 refill of ciprofloxacin 500 mg sent to [facility] 03/01/2025. 1 refill remains available at the pharmacy. 30 day supply plus 3 refills of lactulose 10 gm/15 ml sent to [facility] 02/14/2025. Refills remain available at the pharmacy. documented in this encounter Plan of Treatment Upcoming Encounters Date Type Department Care Team (Late st Contact Info) Description 11/13/2025 1:00 PM EST Appointment [facility] [address] [place] [address] 11/13/2025 2:00 PM EST Appointment [facility] [address] [place] [facility] [address] 11/20/2025 11:45 AM EST Appointment [facility] [address] [place] [facility] [address] 11/20/2025 12:45 PM EST Appointment [facility] [address] [place] [facility] [address] 11/22/2025 1:00 PM EST Office Visit [facility] [address] [facility] [address] [place] [address] Barrie Peterson MD [address] [place] [address] 11/28/2025 10:00 AM EST Appointment [facility] [address] [place] [address] 11/28/2025 11:00 AM EST Appointment [facility] [address] [place] [address] 12/05/2025 10:00 AM EST Appointment [facility] [address] [place] [address] 12/05/2025 11:00 AM EST Appointment [facility] [address] [place] [address] 12/20/2025 11:00 AM EST Office Visit [facility] Endocrinology [address] [place] [address] Miranda Hobson, DRY PRIMER POWDER BLENDER [address] [address] 03/07/2026 9:00 AM EDT Office Visit [facility] [address] [place] [address] Grover Ltitle MD [address] [facility] [address] [place] [address] documented as of this encounter Visit Diagnoses Diagnosis Altered mental status, unspecified altered mental status type documented in this encounter Additional Health Concerns Infection [...] documented as of this encounter Care Teams Epic Prelude Analyst Relationship Specialty Start Date End Date Alvarez Zimmer MD [address] [place] [address] PCP - General Family Medicine 12/07/24 09/02/25 Lillie Pritchard MD [address] [place] [address] PCP - General Family Medicine 09/03/25 Lea Fernando [address] [place] [address] [address] [place] [address] Cardiac Cath Lab Technologist Endocrinology 08/29/24 Rachel Ray, RN [address] [facility] [address] [place] [address] Nurse Practitioner Gastroenterology 09/24/24 Tamera Isabel LPN VALUE-BASED TRANSFORMATION PROGRAM None Licensed Practical Nurse 05/29/25 Alina Lovett, RN [facility]IOLOG[facility] None Registered Nurse 06/26/25 06/26/25 Monique Tapia LPN VALUE-BASED [place] [address] None TCM Nurse 07/10/25 08/09/25 Shaniqua Trevino LPN None None TCM Nurse 08/21/25 09/20/25 Wilma Esqueda LPN [facility] None TCM Nurse 10/25/25 10/25/25 documented as of this encounter
--- OUTSIDE RECORDS SUMMARY | 2025-11-11 23:04 | XMS_ITS | Encounter Summary ---
Author Organization [facility] Address [address] [place] [address] Care Team Providers Care Supervisor [place] Name Role Phone Lea Fernando Unavailable [phone] Rachel Ray RN Unavailable [phone] Tamera Isabel LPN Unavailable Un[facility] Lillie Washburn MD Primary Care Provider [phone] Encounter Details Date Type Department Care Team (Latest Contact Info) Description 10/03/2025 Travel Social History Tobacco Use Types Packs/Day [...] How often do you attend chur or anabaptist services? Patient unable to answer [...] do you attend [facility] or anabaptist services? Never 05/29/2025 Do you [...] more drinks on one occasion? Never 09/03/2025 [facility] - Occupational Stress [...] living in a half-way (including now)? No 09/18/2025 [facility] Utilities Answer Date Recorded In the past 12 months has th e [place] [employer], gas, oil, or water company threatened to [...] drink first t kennedy in the morning (EYE-ALL AROUND PATTERNMAKER) to steady your nerves or to get [...] Author No Risk Indicated 10/03/2025 2:19 PM Daniele Esqueda RN * Question Answer Date of Assessment Author 1. Wish to be (Past 1 Month) No 025 2:19 PM Daniele Esqueda RN 2. Non-Specific Active Suici liz Thoughts (Past 1 Month) No 10/03/2025 2:19 PM Daniele Esqueda RN 6. Suicidal Behavior (Lifetime) No 2:19 PM Daniele Esqueda RN documented as of this encounter Plan of Treatment Upcoming Encounters Date Type Department Care Team (Late st Contact Info) Description 11/13/2025 1:00 PM EST Appointment [facility] [address] [place] [address] 11/13/2025 2:00 PM EST Appointment [facility] [address] [place] [address] 11/20/2025 11:45 AM EST Appointment [facility] [address] [place] [address] 11/20/2025 12:45 PM EST Appointment [facility] [address] [place] [address] 11/22/2025 1:00 PM EST Office Visit [facility] [address] [place] [address] Barrie Peterson MD [address] [place] [address] 11/28/2025 10:00 AM EST Appointment [facility] [address] [place] [address] 11/28/2025 11:00 AM EST Appointment [facility] [address] [place] [address] 12/05/2025 10:00 AM EST Appointment [facility] [address] [place] [address] 12/05/2025 11:00 AM EST Appointment [facility] [address] [place] [address] 12/20/2025 11:00 AM EST Office Visit [facility] Endocrinology [address] [place] [address] Miranda Hobson P, GEOLOGICAL SAMPLE TESTER [address] [facility] [address] [place] [address] 03/07/2026 9:00 AM EDT Office Visit [place] [facility] [address] [place] [address] Grover Little MD [address] [place] [address] documented as of this encounter Visit Diagnoses [...] as of this encounter Care Teams Supervisor [place] Relationship Specialty Start Date End Date Lillie Pritchard MD [address] [place], [place] [phone] PCP - General Family Medicine 09/03/25 Lea Fernando [address] [place] [address] Dry Cure Worker Endocrinology 08/29/24 Rachel Ray, RN [address] [facility] [address] [place] [address] Nurse Practitioner Gastroenterology 09/24/24 Tamera Isabel LPN VALUE-BASED TRANSFORMATION PROGRAM None Licensed Practical Nurse 05/29/25 documented as of this encounter
--- OUTSIDE RECORDS SUMMARY | 2025-11-11 23:04 | XMS_ITS | Encounter Summary ---
Author Organization [employer] ([place], [place], [place], [place], [place]) Address [address] [place] [address] Care Team Providers Care House Shorer Name Role Phone Taina Lyles ADRI Primary Care Provider [phone] Encounter Details Date Type Department Care Team (Late st Contact Info) Description 07/07/2021 Transcribed Document [facility] Family Medicine [facility] [place] [address] ProviderWilliam MD [address] [place] [address] Social History Tobacco Use Types Packs/Day Years [...] 07/07/2021 16:13 EDT by CHARLES CUEVAS Mkt Denture Waxer-Utilization Mgt Final Discharge Planning Discharge Arrangements : Patient Post-Acute Information Patient Name: MONIKA ZIMMER Gender: Female : [birth year] Age: 60 Years No Post-Acute Placement(s) Listed No Post-Acute Service(s) Listed No [place] Referral(s) Listed Discharge To Care Management : Home/Residential/Fdc or Self Care -01 CHARLES CUEVAS Mkt Denture Waxer-Utilization Mgt - 07/07/2021 16:13 EDT documented in this encounter Plan of Treatment Not on file documented as of this encounter Visit Diagnoses Not on filedocumented in this encounter Care Teams House Shorer Relationship Specialty Start Date End Date Taina Lyles, MANAGER FLIGHT OPERATIONS [address] [place] [address] PCP - General Nurse Practitioner 06/15/23 documented as of this encounter
--- OUTSIDE RECORDS SUMMARY | 2025-11-11 23:04 | XMS_ITS | Clinical Summary ---
Author Organization [facility] Address [address] [place] [phone] Phone Care Team Providers Care Scaling Machine Operator Name Role Phone Taina Lyles Primary Care Provider [phone] Allergies No known active allergies Medications * [...] Insurance [employer] Dual [employer] MCR/GINGER Care Teams Scaling Machine Operator Relationship Specialty Start Date End Date Taina Lyles [address] [place] [address] PCP - General 05/02/23
--- OUTSIDE RECORDS SUMMARY | 2025-11-11 23:04 | XMS_ITS | Clinical Summary ---
Author Organization [facility] Address [address] [place] [address] Care Team Providers Care Water Treatment Plant Mechanic Name Role Phone Taina Lyles APRN Primary Care Provider [phone] Allergies No known active allergies Medications * [...] (11/02/2022): Added automatically from request for surgery [id number] Colon cancer screening 09/20/201910/26 Overview (09/20/2019): Added automatically from request for surgery [id number] Immunizations Immunization Administration Dates Next Due Flu [...] Karime Osteoarthritis Mother Karime Thyroid cancer Mother Karmie Breast cancer Other Emphysema Paternal Grandfather Epp [...] or slept in a custodial (including now)? No 12/01/2022 Abuse Screen Answer [...] history exists Medical Devices Implanted Type Area Certified Fraud Examiner Device Identifier Shelf Expiration Date Model / Serial / Lot Implant Implant Description:BILATERAL IOL Clip Gi Lig Hemostasis Resolution 2.8mm - [id number] Implanted:Qty: 1 on 09/27/2019 by Ross Johnson MD at [facility] Implant [employer] BERNARDINO 01/02/2022 [id number] / / [id number] Dev Clip Quickclippro Fix 2300mm - [id number] Implanted:Qty: 2 on 09/27/2019 by Ross Johnson MD at [facility] Implant [facility] 05/20/2022 HX20 2URA / / [id number] Dev Clip Quickclippro Fix 2300mm - [id number] Implanted:Qty: 2 on 09/27/2019 by Ross Johnson MD at [facility] Implant [facility] 04/20/2022 HX20 2URA / / [id number] Dev Clip Endo [id number] Contrl Rot 235cm - [id number] Implanted:Qty: 1 on 01/14/2023 by Lori Rm MD at [facility] Implant N/A: Perianal [employer] BERNARDINO 09/27/2025 [id number] / / [id number] Procedures Procedure Name Priority Date/Time Associated Diagnosis [...] 06/16/2024 12:02 AM EDT [facility] Triglycerides 113 0 - 150 mg/dL 06/16/2024 12:02 AM EDT [facility] HDL Cholesterol 51 40 - 60 mg/dL 06/16/2024 12:02 AM EDT [facility] LDL Cholesterol 79 0 - 100 mg/dL 06/16/2024 12:02 AM EDT [facility] VLDL Cholesterol 20 5 - 40 mg/dL 06/16/2024 12:02 AM EDT [facility] LDL/HDL Ratio 1.50 06/16/2024 12:02 AM EDT [facility] Blood Venipuncture / Unknown 06/15/2024 2:00 PM EDT 06/15/2024 3:40 PM EDT Narrative [facility] - 06/16/2024 12:02 AM EDT Cholesterol [...] ORDERABLES Final Resul t [facility]
[address] [place] [address], * Mammo Diagnostic Digital Tomosynthesis Bilateral With [...] compatible with focal fat necrosis. Taina Lyles JAIL OFFICER IMG MAMMOGRAPHY ORDERABLES Fin al Result * COLONOSCOPY (01/14/2023 9:24 AM EST) Lori Rm MD INTERFACE NEEDS Final Re sult * UPPER GI ENDOSCOPY (12/13/2022 7:32 AM EST) Lori Rm MD INTERFACE NEEDS Final Re sult * Hepatitis C Antibody (10/28/2022 8:43 AM EST) Hepatitis C Ab Non-Reacti ve Non-Reacti ve 10/28/2022 7:36 PM EST [facility] Blood Venipuncture / Unknown 10/28/2022 8:43 AM EST 10/28/2022 9:21 AM EST [facility] - 10/28/2022 7:36 PM EST Results may be falsely decreased if patient taking Biotin. Mira Amin APRN LAB BLOOD ORDERABLES Final Result [facility]
[address] [place] [address], * (ABNORMAL) Hemoglobin A1c (11/24/2020 10:43 AM EST) Hemoglobin A1C 11.50(H) 4.80 - 5.60 % 11/24/2020 11:15 AM EST [facility] Blood Venipuncture / Unknown 11/24/2020 10:43 AM EST 11/24/2020 11:01 AM EST [facility] - 11/24/2020 11:15 AM EST Hemoglobin A1C Ranges: Increased Risk for Diabetes 5.7% to 6.4% Diabetes >= 6.5% Diabetic Goal < 7.0% Hang Coley MD LAB BLOOD ORDERABLES Final Res ult [facility]
[address] [place] [address], [place] [phone] from Last 3 Months or Most Recently Relevant to Health Maintenance [place] [place] [address] MEDICARE ADVANTAGE PPO Advance Directives * CPR (Attempt to Resuscitate) (Latest Code Status on File) Date Activated Date Inactivated Comments 11/30/2022 11:52 PM 12/02/2022 6:26 PM Question Answer Comments Code Status (Patient has no pulse and is not breathing): CPR (Attempt to Resuscitate) Medical Interventions (Patie nt has pulse or is breathing): Full Support Level Of Support Discussed With: Patient Care Teams Water Treatment Plant Mechanic Relationship Specialty Start Date End Date Taina Lyles APRN PCP - General Nurse Practitioner 12/30/22
--- OUTSIDE RECORDS SUMMARY | 2025-11-11 23:04 | XMS_ITS | Encounter Summary ---
Author Organization [facility], [facility] Address [address] [place] [phone] Phone Care Team Providers Care Factory Engineer Name Role Phone Taina Lyles Primary Care Provider Reason for Visit * Reason Comments Med Refill Encounter Details Date Type Department Care Team (Late st Contact Info) Description 10/17/2021 Refill [facility], [address] [address] [place], [place] Social History [...] on filedocumented in this encounter Care Teams Factory Engineer Relationship Specialty Start Date End Date Taina Lyles [address] [place] [address] PCP - General 05/02/23 documented as of this encounter
--- OUTSIDE RECORDS SUMMARY | 2025-11-11 23:04 | XMS_ITS | Referral Summary ---
Author Organization [employer] ([place], [place], [place], [place], [place]) Address [address] [place] [address] Care Team Providers Care Internal Sales Engineer Name Role Phone Taina Lyles APRN Primary Care Provider [phone] Allergies No known active allergies Medications * [...] Date Beau rded Speak language other than Egyptian at home Not on file 12/01/2023 Want [...] on file Medical Devices Implanted Type Area Banquet Director Device Identifier Shelf Expiration Date Model / Serial / Lot Kt Lead Tined 1201 - [id number] Implanted:Qty: 1 on 07/01/2023 by Rory Villarreal MD at [facility] IMPLANTS N/A: Sacrum [employer]ONICS 1201 / [id number] / Neurostimulator Rechrgble R20 5101 - [id number] Implanted:Qty: 1 on 07/01/2023 by Rory Villarreal MD at [facility] IMPLANTS N/A: Sacrum AXONICS 5101 / [id number] 5 / Procedures Procedure Name Priority Date/Time [...] 4:24 AM EDT 07/02/2021 8:24 AM EDT [facility] Historical Provider PATHOLOGY/CYTOLOGY ORDE LOAN Final Result Performing Organization Address City/State/[facility] Co de Phone Number [facility] [address] [phone] from Last 3 Months or Most Recently Relevant to Health Maintenance Insurance [facility] MEDICARE PPO Care Teams Internal Sales Engineer Relationship Specialty Start Date End Date Taina Lyles, SENSITIZED PAPER TESTER [address] [place] [address] PCP - General Nurse Practitioner 06/15/23
--- OUTSIDE RECORDS SUMMARY | 2025-11-11 23:05 | XMS_ITS ---
Author Organization [facility] Address [address] [place] [address] Care Team Providers Care Hotel Reservation Agent Name Role Phone Lea Fernando Unavailable [phone] Rachel Ray RN Unavailable [phone] Tamera Isabel LPN Unavailable UnavailLillie Perez MD Primary Care Provider [phone] Annual Wellness Status:Active (Active) Program category:Care Coordination Start date:05/29/2025 Enrollment date:05/29/2025 Enrollment reason:Identified using claims or encounter data Case Team Name Relationship Phone Tamera Isabel LPN(Responsible Staff) Licensed Practical Nurse Continued Care and Services Coordination
--- OUTSIDE RECORDS SUMMARY | 2025-11-11 23:05 | XMS_ITS | Encounter Summary ---
Author Organization [employer] ([place], [place], [place], [place], [place]) Address [address] [place] [address] Care Team Providers Care Solutions Manager Name Role Phone Taina Lyles ADRI Primary Care Provider [phone] Encounter Details Date Type Department Care Team (Late st Contact Info) Description 07/02/2021 Transcribed Document [facility] [place] [facility]ly [facility], [facility] [place] [address] ProviderWilliam MD [address] [place] [address] [id number] Social History Tobacco Use Types Packs/Day Years [...] list: All Problems Anxiety / SNOMED CT 7037670171 / Confirmed Arthritis / SNOMED CT 5909787 / Confirmed ADD (attention deficit disorder) / SNOMED CT 3622992396 / Confirmed right carpal tunnel / SNOMED CT 30708481 / Confirmed Chronic depression / SNOMED CT 032313706 / Confirmed Diabetes / SNOMED CT 655222228 / Confirmed GERD (gastroesophageal reflux disease) / SNOMED CT 816774147 / Confirmed Stress incontinence / SNOMED CT 982793121 / Confirmed History of recurrent UTIs / SNOMED CT 760495631 / Confirmed H/O syncope / SNOMED CT 2315809979 / Confirmed Hyperlipidemia / SNOMED CT 64880895 / Confirmed bilateral knee pain / SNOMED CT 75003444 / Confirmed Right tennis elbow / SNOMED CT 0654645814 / Confirmed recent diagnosis Renal insufficiency / SNOMED CT 2806945558 / Confirmed RLS (restless legs syndrome) / SNOMED CT 49430578 / Confirmed sleep apnea with Cpap / SNOMED CT 482762428 / Confirmed, Active Problems (16) ADD (attention [...] EDT Height Source Stated Height Entry Format [place] Height/Length, TURKISH (ft) 5 ft Height/Length TURKISH 6 Inch CLINICALHEIGHT 167.64 cm [place] Body Weight 58.88 kg Weight Source, ED Standing scale Weight Entry Format [place] Weight Faroese lb 203 lb CLINICALWEIGHT 92.27 kg Body [...] on filedocumented in this encounter Care Teams Solutions Manager Relationship Specialty Start Date End Date Taina Lyles, COVER STRIPPER [address] [place] [address] PCP - General Nurse Practitioner 06/15/23 documented as of this encounter
--- OUTSIDE RECORDS SUMMARY | 2025-11-11 23:05 | XMS_ITS | Encounter Summary ---
Author Organization [employer] ([place], [place], [place], [place], [place]) Address [address] [place] [address] Care Team Providers Care Branch Service Leader Name Role Phone Taina Lyles ADRI Primary Care Provider [phone] Encounter Details Date Type Department Care Team (Late st Contact Info) Description 09/09/2020 Transcribed Document [facility] [place] Family Medicine [address] [place] [address] ProviderWilliam MD [address] [place], [place] [id number] Social History Tobacco Use Types Packs/Day Years [...] Reyes MD - 09/09/2020 3:03 PM CDT [place] [id number] MONIKA ZIMMER :1960 Visit Time:09/08/2020 Your Visit Summary Your Care Team Primary Provider: Loyd Leon Secondary Provider: Your Diagnosis Acute gastroenteritis [...] 1 week Where: [address] [facility] [address] [place] [address] Business (1) Follow Up with ERYN PARKINSON When Within 2 to 3 days Where: [address] [place] [address] [facility] (1) Allergies No Known Allergies Immunizations This Visit No Immunizations Found Medications What How Much When Instructions Next Dose isosorbide mononitrate (isosorbide mononitrate 60 mg oral tablet, extended release) 1 Tablet(s) Oral Every Morning Duration: 30 Day(s) Pickup at [facility] albuterol (Ventolin HFA 90 [...] oral tablet) Oral At Bedtime Pharmacy Information [facility]: [address] [place] [phone] The home medications listed are only as [...] range between ( 1.0 and 7.0 ) [place] #: 0.94 K/uL -- Normal range between ( 0.24 and 0.82 ) [place] #: 0.32 K/uL -- Normal range between ( 0.04 and 0.54 ) [place] %: 7.6 % -- Normal range between [...] ) Urine Bilirubin Dipstick: Negative Urine Specific [place]: *1.026 -- Normal range between ( 1.005 and 1.030 ) Microbiology 09/08/2020 8:19 PM Novel Coronavirus 2019: Negative Urine Chemistry 09/08/2020 8:19 PM Osmolality Urine: 662 mOsm/kg -- Normal range between ( 250 and 900 ) Sodium Ur [place]: 127 mMole/Liter General Chemistry 09/09/2020 12:10 PM [...] lot of fat or sugar. ??? Take dukh-dwg-vyuuzdq and prescription medicines only as told by [...] 11/07/2006 Document Revised: 10/20/2018 Document Reviewed: 12/31/2016 [employer] Patient Education ?? 2020 [employer]. Angina Angina is extreme discomfort in the [...] these instructions at home: Medicines ??? Take ezxc-cij-rbcpfsf and prescription medicines only as told by [...] 11/07/2006 Document Revised: 06/25/2019 Document Reviewed: 06/25/2019 [employer] Patient Education ?? 2020 [employer] Emergency Awareness and Preventative Care STROKE [...] Assistance with quitting is available by contacting 7-576-WGIN-NOW. This is a free resource providing counseling, [...] was given the opportunity to ask questions. Patient/Real Estate Loan Officer Name: Patient/Real Estate Loan Officer Signature: Relationship to Patient: Clinician/Hospital Real Estate Loan Officer Signature: Please Provide a Telephone Number Where You Can Be Reached: Is it Permissible To Leave a Message? Date: documented in this encounter Plan of Treatment Not on file documented as of this encounter Visit Diagnoses Not on filedocumented in this encounter Care Teams Branch Service Leader Relationship Specialty Start Date End Date Taina Lyles, RESTAURANT HOSPITALITY MANAGER [address] [place] [address] PCP - General Nurse Practitioner 06/15/23 documented as of this encounter
--- OUTSIDE RECORDS SUMMARY | 2025-11-11 23:05 | XMS_ITS | Encounter Summary ---
Author Organization [employer] ([place], [place], [place], [place], [place]) Address [address] [place] [address] Care Team Providers Care Repairer Veneer Sheet Name Role Phone Taina Lyles ADRI Primary Care Provider [phone] Encounter Details Date Type Department Care Team (Late st Contact Info) Description 09/09/2020 Transcribed Document [facility] [place] [address] [place] [address] ProviderWilliam MD [address] [place] [address] Social History Tobacco Use Types Packs/Day Years [...] on filedocumented in this encounter Care Teams Repairer Veneer Sheet Relationship Specialty Start Date End Date Taina Lyles, ADRI [address] [place] [address] PCP - General Nurse Practitioner 06/15/23 documented as of this encounter
--- OUTSIDE RECORDS SUMMARY | 2025-11-11 23:05 | XMS_ITS | Clinical Summary ---
Author Organization [facility] Address [address] [place] [address] Care Team Providers Care Supervisor Files Name Role Phone Lea Fernando Unavailable [phone] Rachel Ray RN Unavailable [phone] Tamera Isabel LPN Unavailable Unavailabl e Lillie Pritchard MD Primary Care Provider [phone] Allergies Active Allergy Reactions Criticality Noted Date Comments Penicillins Other - please docum ent in the comment field Low 08/18/2025 Doesn't remember Medications * This document contains information received from the source organization and may not represent a complete record from that organization. Multiple Vitamins-Minera ls (COMPLETE WOMENS PO) Take 1 tablet by mouth in the morning. Active calcium carbonate EX (Tums E-X) 750 MG chewable tablet Chew 1 tablet (750 mg) 1 (one) time each day. 12/05/19 25 Active Magnesium Oxide, Laxative, 500 MG tabletIndicatio ns:Hypomagnesem ia Take 1 tablet by mouth daily. 90 tablet 3 04/01/20 25 Active cholecalciferol (Vitamin D-3) 25 MCG (1000 UT) tablet Take 1 tablet by mouth daily. 90 tablet 2 04/01/20 25 Active lactulose (Chronulac) 10 GM/15ML solution Take 30 mL by mouth 3 times a day. 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 60 tablet 11 06/03/20 25 026 Active calcitriol (Rocaltrol) 0.25 MCG capsuleIndicati ons:Chronic kidney disease, stage 3b (CMS/HCC) Take 1 capsule by mouth daily. 30 capsule 06/10/20 25 026 Active cetirizine (ZyrTEC) 10 MG tabletIndicatio ns:ETD (Eustachian tube dysfunction), bilateral Take 1 tablet by mouth daily. 30 tablet 07/09/20 25 Active carboxymethylce llulose PF (Refresh Plus) 0.5 [...] to take your insulin. 07/09/20 25 Active sertraline (Zoloft) 25 MG tabletIndicatio ns:Anxiety disorder, unspecified type Take 1 tablet by mouth daily. 90 tablet 1 09/03/20 25 Active diclofenac (Voltaren) 1 % topical gel Place 2 g on the skin 2 times a day. Apply as directed to left ankle Active ergocalciferol (Vitamin D-2) 1.25 MG (13803 UT) capsule Take 1 capsule by mouth 1 time per week. Active bumetanide (Bumex) 0.5 MG tablet Take 1 tablet by mouth 3 times a week. 09/25/20 25 Active acetaminophen (Tylenol) 500 MG tablet Take 1 tablet by mouth every 8 hours as needed for pain, headaches or fever. 10/23/20 25 Active hydrocortisone (Cortef) 5 MG tablet Take 1 tablet by mouth every evening AND 4 tablets 1 (one) time each day at the same time. 10/23/20 25 Active insulin glargine-yfgn 100 UNIT/ML injection vial Inject 40 Units under the skin daily. 10/24/20 25 Active Insulin Lispro (Admelog, HumaLOG) 100 UNIT/ML injection vial Inject 10 Units under the skin 3 times a day with meals. 10/23/20 25 Active midodrine (Proamatine) 5 MG tablet Take 1 tablet by mouth 3 times a day. 10/23/20 25 Active nystatin (Mycostatin) cream Apply to vulvovaginal region twice daily for 7 days 30 g 10/23/20 25 Active sodium bicarbonate 650 MG tablet Take 1 tablet by mouth 4 times a day. 10/23/20 25 Active midodrine (Proamatine) 5 MG tablet Take 3 tablets by mouth 3 times a day. 07/09/20 25 025 Discontin ued(Stop Taking at Discharge ) INSULIN GLARGINE-YFGN SC Inject 26 Units under the skin every morning. 025 Discontin ued(Stop Taking at Discharge ) Active Problems Problem Noted Date Diagnosed Date [...] at this time has elected to pursue [facility] placement and would like to speak with palliative care to learn more about their services - SW working to find LTC facility placement - palliative consulted PLAN - Delirium protocols - Continue Up to Chair TID, q4 turns - Ongoing GOC discussions Assessment & Plan (07/05/2025 8:28 AM EDT): - Patient at this time has elected to pursue [facility] Process Worker Care placement and would like to speak with palliative care to learn more about their services - SW working to find LTC facility placement - palliative consulted PLAN - Delirium protocols - Continue Up to Chair TID, q4 turns - Ongoing GOC discussions Assessment & Plan (07/04/2025 9:28 AM EDT): - Patient at this time has elected to pursue Detention Care placement and would like to speak with palliative care to learn more about their services - SW working to find LTC facility placement - palliative consulted PLAN - Delirium protocols - Continue Up to Chair TID, q4 turns - Ongoing GOC discussions Assessment & Plan (07/03/2025 8:24 AM EDT): - Patient at this time has elected to pursue Forming Process Worker Care placement and would like to speak [...] at this time has elected to pursue Forming Process Worker Care placement and would like to speak [...] Consider Palliative consult AM 07/03 - Ongoing C discussions Assessment & Plan (07/01/2025 9:16 AM EDT): - PTOT recs home health - Patient and family have significant concern and would prefer [facility] or residential care pending influence on ability to receive transplant - Patient endorsing some burning discomfort that begins in buttocks and radiates down lateral leg, does not feel as though she is getting moved much - Concerned with possible disorientation PLAN - Transplant service to evaluate today and determine if residential care would be a barrier to future liver transplant - Delirium protocols - Up to Chair TID, q4 turns Neutropenia 06/26/2025 Assessment & Plan (07/08/2025 1:55 [...] though not on medication - Stopped seeing licensed mass real estate appraiser after being dismissed for missing too many [...] though not on medication - Stopped seeing licensed mass real estate appraiser after being dismissed for missing too many [...] - Continue daily vit D 1000 U; 86253 U to be ordered on 06/30 if [...] - Continue daily vit D 1000 U; 87137 U to be ordered on 06/30 if [...] - Continue daily vit D 1000 U; 35726 U to be ordered on 06/30 if [...] - Continue daily vit D 1000 U; 97471 U to be ordered on 06/30 if [...] - Continue daily vit D 1000 U; 32882 U to be ordered on 06/30 if [...] daily, Vit D 1000 U daily and 64264 U weekly (Sundays) PLAN: - Admitted to [...] - Continue daily vit D 1000 U; 83243 U to be ordered on 06/30 if [...] at this time has elected to pursue Forming Process Worker Care placement and would like to speak with palliative care to learn more about their services - SW working to find LTC facility placement - palliative consulted PLAN - Delirium protocols - Continue Up to Chair TID, q4 turns - Ongoing GOC discussions Assessment & Plan (07/05/2025 8:28 AM EDT): - Patient at this time has elected to pursue Detention Care placement and would like to speak with palliative care to learn more about their services - SW working to find LTC facility placement - palliative consulted PLAN - Delirium protocols - Continue Up to Chair TID, q4 turns - Ongoing GOC discussions Assessment & Plan (07/04/2025 9:28 AM EDT): - Patient at this time has elected to pursue Detention Care placement and would like to speak with palliative care to learn more about their services - SW working to find LTC facility placement - palliative consulted PLAN - Delirium protocols - Continue Up to Chair TID, q4 turns - Ongoing GOC discussions Assessment & Plan (07/03/2025 8:24 AM EDT): - Patient at this time has elected to pursue Detention Care placement and would like to speak [...] at this time has elected to pursue Detention Care placement and would like to speak [...] significant concern and would prefer JOHN or exterminator helper termite care pending influence on ability to receive transplant - Patient endorsing some burning discomfort that begins in buttocks and radiates down lateral leg, does not feel as though she is getting moved much - Concerned with possible disorientation PLAN - Transplant service to evaluate today and determine if residential care would be a barrier to future [...] recommended home health; patient and family requested [facility]ci facility PLAN - Contacted transplant service to [...] recommended home health; patient and family requested [facility]ci facility PLAN - Plan for placement in long-term care Assessment & Plan (06/29/2025 8:30 AM EDT): - Patient reports poor PO intake at home in s/o large-volume ascites - Family involved in and amenable to discussion of placement; concerned for declining ability to perform ADLs - PT/OT recommended home health; patient and family requested [facility] facility PLAN - Plan for placement in [...] consulted; recs appreciated - Patient agreeable to fci facility Assessment & Plan (06/26/2025 3:57 PM [...] PT/OT and nutrition consult ordered; recs appreciated CARLOTTA (acute kidney injury) 06/25/2025 Caregiver not readily available 06/11/2025 Hx of [...] - Continue daily vit D 1000 U; 07154 U to be ordered on 06/30 if [...] - Continue daily vit D 1000 U; 69282 U to be ordered on 06/30 if [...] - Continue daily vit D 1000 U; 04547 U to be ordered on 06/30 if [...] - Continue daily vit D 1000 U; 78927 U to be ordered on 06/30 if [...] - Continue daily vit D 1000 U; 21225 U to be ordered on 06/30 if [...] daily, Vit D 1000 U daily and 04191 U weekly (Sundays) PLAN: - Admitted to [...] - Continue daily vit D 1000 U; 68904 U to be ordered on 06/30 if still admitted - Renally dose medications and avoid nephrotoxic agents Moderate protein-calorie malnutrition 01/22/2025 Hepatic encephalopathy 10/14/2024 Type 2 diabetes mellitus, wi th long-term [...] as necessary Secondary esophageal varices without bleeding Cirrhosis of liver with ascites 11/30/2022 Assessment [...] - Continue daily vit D 1000 U; 64859 U to be ordered on 06/30 if [...] - Continue daily vit D 1000 U; 12389 U to be ordered on 06/30 if [...] - Continue daily vit D 1000 U; 38800 U to be ordered on 06/30 if [...] - Continue daily vit D 1000 U; 04291 U to be ordered on 06/30 if [...] daily, Vit D 1000 U daily and 94259 U weekly (Sundays) PLAN: - Admitted to [...] - Continue daily vit D 1000 U; 76344 U to be ordered on 06/30 if [...] Plan (06/30/2025 1:48 PM EDT): - 06/28 DUMP TRUCK DRIVER diet recommendations; see below - Patient continues to eat full diet without difficulty PLAN - Continue to hold omeprazole Assessment & Plan (06/29/2025 12:33 PM EDT): - DUMP TRUCK DRIVER attempted to see patient 8/7; was in procedure - 06/28 DUMP TRUCK DRIVER diet recommendations: IDDSI Level 7 - Regular and IDDSI Level 0- Thin PLAN - Continue to hold omeprazole Assessment & Plan (06/29/2025 8:30 AM EDT): - DUMP TRUCK DRIVER attempted to see patient 8/7; was in procedure PLAN - Awaiting DUMP TRUCK DRIVER eval - Continue to hold omeprazole Assessment & Plan (06/27/2025 3:08 PM EDT): - Chronic; advised to hold home omeprazole at most recent nephrology appointment due to concern for CARLOTTA PLAN - Continue to hold omeprazole - Ordered DUMP TRUCK DRIVER consult; appreciate recommendations Assessment & Plan (06/26/2025 3:57 PM EDT): - Chronic; advised to hold home omeprazole at most recent nephrology appointment due to concern for CARLOTTA PLAN - Continue to hold omeprazole - Ordered DUMP TRUCK DRIVER consult; appreciate recommendations Assessment & Plan (06/26/2025 [...] - Continue daily vit D 1000 U; 64007 U to be ordered on 06/30 if [...] - Continue daily vit D 1000 U; 50407 U to be ordered on 06/30 if [...] - Continue daily vit D 1000 U; 70251 U to be ordered on 06/30 if [...] - Continue daily vit D 1000 U; 69206 U to be ordered on 06/30 if [...] - Continue daily vit D 1000 U; 90064 U to be ordered on 06/30 if [...] daily, Vit D 1000 U daily and 23159 U weekly (Sundays) PLAN: - Admitted to [...] - Continue daily vit D 1000 U; 56303 U to be ordered on 06/30 if [...] at this time has elected to pursue Detention Care placement and would like to speak with palliative care to learn more about their services - SW working to find LTC facility placement - palliative consulted PLAN - Delirium protocols - Continue Up to Chair TID, q4 turns - Ongoing GOC discussions Assessment & Plan (07/05/2025 8:28 AM EDT): - Patient at this time has elected to pursue Detention Care placement and would like to speak with palliative care to learn more about their services - SW working to find LTC facility placement - palliative consulted PLAN - Delirium protocols - Continue Up to Chair TID, q4 turns - Ongoing GOC discussions Assessment & Plan (07/04/2025 9:28 AM EDT): - Patient at this time has elected to pursue Detention Care placement and would like to speak with palliative care to learn more about their services - SW working to find LTC facility placement - palliative consulted PLAN - Delirium protocols - Continue Up to Chair TID, q4 turns - Ongoing GOC discussions Assessment & Plan (07/03/2025 8:24 AM EDT): - Patient at this time has elected to pursue Forming Process Worker Care placement and would like to speak [...] at this time has elected to pursue Detention Care placement and would like to speak [...] significant concern and would prefer [facility] or residential care pending influence on ability to receive transplant - Patient endorsing some burning discomfort that begins in buttocks and radiates down lateral leg, does not feel as though she is getting moved much - Concerned with possible disorientation PLAN - Transplant service to evaluate today and determine if exterminator helper termite care would be a barrier to future [...] recommended home health; patient and family requested [facility] facility PLAN - Contacted transplant service to [...] recommended home health; patient and family requested fci facility PLAN - Plan for placement in long-term care Assessment & Plan (06/29/2025 8:30 AM EDT): - Patient reports poor PO intake at home in s/o large-volume ascites - Family involved in and amenable to discussion of placement; concerned for declining ability to perform ADLs - PT/OT recommended home health; patient and family requested fci facility PLAN - Plan for placement in [...] consulted; recs appreciated - Patient agreeable to fci facility Assessment & Plan (06/26/2025 3:57 PM [...] artery disease of n ative artery of [place] heart with stable angina pectoris 08/22/2018 Assessment [...] Plan (06/30/2025 1:48 PM EDT): - 06/28 DUMP TRUCK DRIVER diet recommendations; see below - Patient continues to eat full diet without difficulty PLAN - Continue to hold omeprazole Assessment & Plan (06/29/2025 12:33 PM EDT): - DUMP TRUCK DRIVER attempted to see patient 8/7; was in procedure - 06/28 DUMP TRUCK DRIVER diet recommendations: IDDSI Level 7 - Regular and IDDSI Level 0- Thin PLAN - Continue to hold omeprazole Assessment & Plan (06/29/2025 8:30 AM EDT): - DUMP TRUCK DRIVER attempted to see patient 8/7; was in procedure PLAN - Awaiting DUMP TRUCK DRIVER eval - Continue to hold omeprazole Assessment & Plan (06/27/2025 3:08 PM EDT): - Chronic; advised to hold home omeprazole at most recent nephrology appointment due to concern for CARLOTTA PLAN - Continue to hold omeprazole - Ordered DUMP TRUCK DRIVER consult; appreciate recommendations Assessment & Plan (06/26/2025 3:57 PM EDT): - Chronic; advised to hold home omeprazole at most recent nephrology appointment due to concern for CARLOTTA PLAN - Continue to hold omeprazole - Ordered DUMP TRUCK DRIVER consult; appreciate recommendations Assessment & Plan (06/26/2025 [...] Problem Noted Date Diagnosed Date Resolved Date Shock 10/10/2025 10/23/2025 UTI (urinary tract infection) 09/23/2025 10/23/2025 Acute kidney injury 09/17/2025 10/23/20 25 Assessment & Plan (09/18/2025 4:37 PM EDT): Monika Zimmer is a 65 y.o. 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 Outpatient palliative care entails visits every 4-6 weeks to manage [...] of . I inquired further and she reports she is worried about the casket closing. I [...] would like to think about the options. Hepatic encephalopathy 08/18/202508/20 Assessment & Plan (08/22/2025 [...] Renally dose medications and avoid nephrotoxic agents Serum ammonia increased 06/29/202508/22 Assessment & Plan (07/08/2025 1:55 PM EDT): [...] (06/29/2025 12:33 PM EDT): - Ammonia 125 / - Patient takes Lactulose 20 g TID at home - Reports occasionally missing her 3rd dose; has been receiving all 3 doses in the hospital - Patient had 2 bowel movements this morning PLAN - Continue home Lactulose Hypomagnesemia 06/26/2025 07/09/2025 Assessment & Plan (07/08/2025 [...] - Continue daily vit D 1000 U; 41880 U to be ordered on 06/30 if [...] - Continue daily vit D 1000 U; 60152 U to be ordered on 06/30 if [...] - Continue daily vit D 1000 U; 47969 U to be ordered on 06/30 if [...] - Continue daily vit D 1000 U; 02708 U to be ordered on 06/30 if [...] - Continue daily vit D 1000 U; 10155 U to be ordered on 06/30 if [...] daily, Vit D 1000 U daily and 81033 U weekly (Sundays) PLAN: - Admitted to [...] - Continue daily vit D 1000 U; 04150 U to be ordered on 06/30 if still admitted - Renally dose medications and avoid nephrotoxic agents Other ascites 01/22/2025 07/03/2025 Altered mental state 01/08/2025 025 Acute kidney injury superimp osed on stage [...] - Continue daily vit D 1000 U; 41591 U to be ordered on 06/30 if [...] - Continue daily vit D 1000 U; 62645 U to be ordered on 06/30 if still admitted - Renally dose medications and avoid nephrotoxic agents Assessment & Plan (06/29/2025 8:30 AM EDT): - Creatinine 1.1-1.3 at baseline; improved to 1.66 on 8/8 - Paracentesis and thoracentesis performed 06/27; patient states removed 3L para and 1.7L thora - IR gave patient albumin 25% infusion 37.5g after procedures PLAN - Continue to trend creatinine on daily CMP - Reach back out to nephrology/hepatology if creatinine begins to rise - Continue home lactulose, rifaximin, and ciprofloxacin - Continue midodrine 10mg TID - Continue daily vit D 1000 U; 21495 U to be ordered on 06/30 if [...] - Continue daily vit D 1000 U; 83314 U to be ordered on 06/30 if [...] - Continue daily vit D 1000 U; 90526 U to be ordered on 06/30 if [...] daily, Vit D 1000 U daily and 49516 U weekly (Sundays) PLAN: - Admitted to [...] - Continue daily vit D 1000 U; 70848 U to be ordered on 06/30 if still admitted - Renally dose medications and avoid nephrotoxic agents Portal hypertensive gastropathy 02/24/2023 09/17/2025 Fatty liver disease, nonalcoholic 10/26/2022 01/23/2025 Obesity [...] (07/17/2021): Added automatically from request for surgery [id number] Mixed hearing loss of right ear 08/24/2019 [...] 05/17/201801/23 Nasal turbinate hypertrophy 05/17/2018 01/23/2025 Encounters * This document contains information received from the source organization and may not represent a complete record from that organization. Date Type Department Care Team Description 11/06/2025 6:24 AM EST - 11/06/2025 11:59 PM EST Hospital Encounter [facility] [address] [place] [address] Emily Black, PARK Other ascites Discharge Disposition: Home or Self Care 11/06/2025 Travel 10/30/2025 6:38 AM EST - 10/30/2025 11:59 PM EST Hospital Encounter [facility] [address] [place] [address] Kandice Silva, PARK Other ascites Discharge Disposition: Home or Self Care 10/30/2025 Travel 10/25/2025 Patient Outreach [facility] [address] [place] [address], [address] [place] [address] Wilma Esqueda FAGOTING MACHINE OPERATOR [facility] 10/23/2025 Travel 10/11/2025 Travel 10/10/2025 Travel 10/10/2025 Orders Only External Location [address] [place] [address] Provider, External 10/10/2025 Orders Only External Location [address] [place] [address] Provider, External 10/10/2025 Orders Only External Location [address] [place] [address] Provider, External 10/03/2025 10:56 AM EST - 10/03/2025 11:59 PM EST Hospital Encounter [facility] [address] [place] [address] Daniele Kennedy, PARK Abdominal ascites; Pleural effusion Discharge Disposition: Home or Self Care 10/03/2025 Travel 09/26/2025 9:18 AM EST - 09/26/2025 11:59 PM EST Hospital Encounter [facility] [address] [place] [address] Discharge Disposition: Home or Self Care 09/26/2025 6:20 AM EST - 09/26/2025 9:17 AM EST Hospital Encounter [facility] [address] [place] [address] Candy Ness, RN Abdominal ascites Discharge Disposition: Home or Self Care 09/26/2025 6:15 AM EST - 09/26/2025 6:19 AM EST Hospital Encounter [facility] [address] [place] [phone] Candy Ness, RN Other ascites Discharge Disposition: Home or Self Care 09/26/2025 Travel 09/19/2025 Travel 09/17/2025 3:35 PM EDT - 09/23/2025 10:31 AM EST Hospital Encounter [facility] [address] [place] [phone] Preeti Magaña, Latonia Davison MD Acute cystitis without hematuria (Primary Dx); Alcoholic cirrhosis of liver with ascites; Other ascites Discharge Disposition: Penitentiary Facility 09/17/2025 11:20 AM EDT Office Visit [facility] [address] [facility] [address] [place] [phone] Octavia Herrera, PA Cirrhosis of liver with ascites, unspecified hepatic cirrhosis type (Primary Dx); Secondary esophageal varices without bleeding; Pleural effusion associated with hepatic disorder; Moderate protein-calorie malnutrition (CMS/HCC); Chronic kidney disease, stage 3b (CMS/HCC); Self-care deficit; Hepatic encephalopathy (CMS/HCC); CARLOTTA (acute kidney injury) 09/17/2025 10:30 AM EDT Social Work [facility] [address] [facility] [address] [place] [phone] Lea Reilly, SENIOR HADOOP DEVELOPER 09/17/2025 Travel 09/10/2025 9:27 AM EDT - 09/10/2025 11:59 PM EDT Hospital Encounter [facility] [address] [place] [address] Discharge Disposition: Home or Self Care 09/10/2025 6:06 AM EDT - 09/10/2025 9:26 AM EDT Hospital Encounter [facility] [address] [place] [id number] Tamara Stokes, PARK Other ascites Discharge Disposition: Home or Self Care 09/10/2025 Orders Only [facility] [address] [place] [address] Preeti Andersen, ADRI Other ascites (Primary Dx) 09/10/2025 Travel 09/05/2025 11:54 AM EDT - 09/05/2025 11:59 PM EDT Hospital Encounter [facility] [address] [place] [phone] Discharge Disposition: Home or Self Care 09/05/2025 8:03 AM EDT - 09/05/2025 11:53 AM EDT Hospital Encounter [facility] [address] [place] [address] Shirley Jiang, RN Other ascites; Alcoholic cirrhosis of liver with ascites Discharge Disposition: Home or Self Care 09/05/2025 Travel 09/03/2025 8:40 AM EDT Office Visit [facility] [address] 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) (Primary Dx); Chronic kidney disease, stage 3b (CMS/HCC); Anxiety disorder, unspecified type 09/03/2025 Travel 09/02/2025 Travel 08/29/2025 11:23 AM EDT - 08/29/2025 11:59 PM EDT Hospital Encounter [facility] [address] [place] [phone] Discharge Disposition: Home or Self Care 08/29/2025 8:05 AM EDT - 08/29/2025 11:22 AM EDT Hospital Encounter [facility] [address] [place] [phone] Daniele Kennedy, PARK Alcoholic cirrhosis of liver with ascites Discharge Disposition: Home or Self Care 08/29/2025 8:03 AM EDT - 08/29/2025 8:04 AM EDT Hospital Encounter [facility] [address] [place] [phone] Daniele Kennedy RN Other ascites Discharge Disposition: Home or Self Care 08/29/2025 Travel 08/26/2025 1:00 PM EDT Office Visit [facility] [address] [place] [phone] Miranda Hobson, SUPERVISOR GRINDING Type 2 diabetes mellitus with hyperglycemia, with long-term current use of insulin (Primary Dx); Chronic kidney disease, stage 3b (CMS/HCC); Hypoglycemia due to insulin; Obesity (BMI 30-39.9) 08/26/2025 Travel 08/26/2025 Telephone [facility] [address] [place], [place] [phone] Hang Lantigua, PharmD 08/22/2025 12:20 PM EDT - 08/22/2025 11:59 PM EDT Hospital Encounter [facility] [address] [place] [address] Discharge Disposition: Home or Self Care 08/22/2025 8:54 AM EDT - 08/22/2025 12:19 PM EDT Hospital Encounter [facility] [address] [place] [address] Candy Ness, PARK Other ascites; Alcoholic cirrhosis of liver with ascites Discharge Disposition: Home or Self Care 08/22/2025 Travel 08/21/2025 Patient Outreach [facility] [address] [facility], [address] [place] [address] Shaniqua Trevino LPN TCM 08/20/2025 Travel 08/19/2025 Travel 08/18/2025 5:21 AM EDT - 08/20/2025 3:15 PM EDT Hospital Encounter [facility] Inpatient [address] [place] [phone] Alvarez Brice MD Rock, Troy C, MD Setser, Jessica L, MD Hepatic encephalopathy (CMS/HCC) (Primary Dx); Urinary tract infection without hematuria, site unspecified Discharge Disposition: Detention Care 08/18/2025 Travel 08/17/2025 Orders Only External Location [address] [place] [address] Rowan Castellano, 08/17/2025 Orders Only External Location [address] [place] [phone] Provider, External 08/17/2025 Orders Only External Location [address] [place] [phone] Provider, External 08/17/2025 Orders Only External Location [address] [place] [phone] Provider, External 08/16/2025 Telephone [facility] Endocrinology [address] [place] [phone] Sharif Moreno, DPNicole HCN - Patient Message 2025 8:47 AM EDT - 2025 11:59 PM EDT Hospital Encounter [facility] [address] [place] [address] Kami Cool RN Alcoholic cirrhosis of liver with ascites (CMS/HCC); Other ascites Discharge Disposition: Home or Self Care 2025 Travel from Last 3 Months Immunizations Immunization [...] Mamaw Mayelin Dementia Maternal Grandmother Mamaw Mayelin Emphysema Maternal Grandmother Mamaw Mayelin Arthritis Mother Karime Singletary Depression Mother Karime Singletary Diabetes Mother Karime Singletary Diabetes type II Mother Karime Singletary Hyperlipidemia Mother Karime Singletary Hypertension Mother Karime Singletary Kidney disease Mother Karime Singletary Thyroid disease Mother Karime Singleatry Dementia Paternal Grandfather Kidney disease Paternal Grandmother [...] you attend [facility] or voodoo services? Never 05/29/2025 Do you [...] more drinks on one occasion? Never 09/03/2025 [facility] - Occupational [...] living in a retirement (including now)? No 10/11/2025 [facility] Utilities Answer Date Recorded In the past 12 months has th e [employer], gas, oil, or water company threatened to [...] drink first t kennedy in the morning ([employer]) to steady your nerves or to [...] Mass Index 30.63 11/06/2025 6:57 AM EST Plan of Treatment Upcoming Encounters Date Type Department Care Team (Late st Contact Info) Description 11/13/2025 1:00 PM EST Appointment [facility] [address] [place] [phone] 11/13/2025 2:00 PM EST Appointment [facility] [address] [place] [phone] 11/20/2025 11:45 AM EST Appointment [facility] [address] [place] [address] 11/20/2025 12:45 PM EST Appointment [facility] [address] [place] [address] 11/22/2025 1:00 PM EST Office Visit [facility] [address] [facility] [address] [place] [address] Barrie Peterson MD [address] [place] [phone] 11/28/2025 10:00 AM EST Appointment [facility] [address] [place] [address] 11/28/2025 11:00 AM EST Appointment [facility] [address] [place] [address] 12/05/2025 10:00 AM EST Appointment [facility] [address] [place] [address] 12/05/2025 11:00 AM EST Appointment [facility] [address] [place] [address] 12/20/2025 11:00 AM EST Office Visit [facility] Endocrinology [address] [place] [phone] Miranda Hobson, SUPERVISOR [employer] [address] [facility] [address] [place] [phone] 03/07/2026 9:00 AM EDT [facility] Visit [facility] [address] [place] [phone] Grover Little MD [address] [place] [phone] Health Maintenance Due Date Last Done Comments Dental Prophylaxis 1962 Dental X-Ray: Bitewings 1962 Dental X-Ray: Full Mouth 1962 [facility]-Infant/Child/Adol SDOH Screenings 1962 [id number] Vaccine (#1) 02/12/1963 Diabetes: Dental Exam 1972 [facility]-Hepatitis A Vaccines (1 of 2 - Risk 2-dose series) 1981 CT Colonography 2007 FIT-DNA 2007 FIT 2007 FOBT 2007 Sigmoidoscopy 2007 [facility]-RSV Vaccine: 60+ Years or (1 - Risk 50-74 years 1-dose series) 2012 [facility]-Pneumococcal Vaccine: 50+ Years (2 of 2 - PCV) 08/23/2019 08/23/2018 Dental Oral Exam 06/17/2025 12/17/2024 [facility]-Influenza Vaccine (#1) 07/22/202509/10, 10/01/2021, 02/11/2021, Additional history exists [facility]-Bone Density Scan 11/07/2025 11/07/2024 [facility]-Breast Cancer Screening 01/25/2026 03/0 05/2024, 01/26/2024, 10/21/2022, Additional history exists [facility]-Diabetes: Hemoglobin A1C 04/09/2026 10/10/2025, 08/26/2025, 05/23/2025, Additional history exists [facility]- SDOH Screenings 04/10/2026 [facility]-Adult SDOH Screenings 04/10/2026 10/11/2025 [facility]-Medicare Annual Wellness (AWV) 06/05/2026 06/05/2025 [facility]-Depression Screening 09/17/2026 09/17/2025, 08/21 [facility]-DTaP,Tdap,and Td Vaccines (2 - Td or Tdap) 07/17/2029 07/17/2019 Colonoscopy 01/14/2033 01/14/2023 [facility]-Colorectal Cancer Screening 01/14/2033 [facility]-Cervical Cancer Screening Discontinued [facility]-HPV/Cotest Discontinued 04/12/2003, 07/22, 02/23/2002, Additional history exists [facility]-Pap Smear Discontinued 04/12/2003, 07/22, 02/23/2002, Additional history exists [facility]-Zoster Vaccines Completed 10/30/2019, 9 [facility]-HIV Screening Completed 10/10/2025, 10/22/2024 [facility]-Hepatitis C Screening Completed 2024, 10/22/2024, 10/02/2024, Additional history exists [facility]-Obesity Intervention Completed 025, 09/26/2025, 09/17/2025, Additional history exists HPV Vaccines (No Doses Required) Completed [facility]-HIB Vaccines Aged Out No longer e ligible based on patient's age to complete this topic [facility]-IPV Vaccines Aged Out No longer e ligible based on patient's age to complete this topic [facility]-Rotavirus Vaccines Aged Out No lo nger eligible based on patient's age to complete this topic Procedures Procedure Name Priority Date/Time Associated Diagnosis Comments US CHEST Routine 11/06/2025 8:37 AM EST Other ascites US GUIDED ABDOMINAL PARACENTESIS Routine 11/06/2025 8:37 AM EST Other ascites BODY FLUID, CYTOSPIN, PATHOLOGIST INTERPRETATION Routine 11/06/2025 8:06 AM EST BODY FLUID CELL COUNT W/ MANUAL DIFFERENTIAL Routine 11/06/2025 8:06 AM EST GLUCOSE, PERITONEAL FLUID Routine 11/06/2025 8:00 AM EST TOTAL PROTEIN, PERITONEAL FLUID Routine 11/06/2025 8:00 AM EST US CHEST Routine 10/30/2025 8:39 AM EST Other ascites US GUIDED ABDOMINAL PARACENTESIS Routine 10/30/2025 8:39 AM EST Other ascites GLUCOSE, PERITONEAL FLUID Routine 10/30/2025 7:55 AM EST TOTAL PROTEIN, PERITONEAL FLUID Routine 10/30/2025 7:55 AM EST BODY FLUID, CYTOSPIN, PATHOLOGIST INTERPRETATION Routine 10/30/2025 7:54 AM EST BODY FLUID CELL COUNT W/ MANUAL DIFFERENTIAL Routine 10/30/2025 7:54 AM EST POCT GLUCOSE METER UNSOLICITED RESULTS Routine 10/23/2025 5:16 PM EST POCT GLUCOSE METER UNSOLICITED RESULTS Routine 10/23/2025 12:54 PM EST US GUIDED ABDOMINAL PARACENTESIS Routine 10/23/2025 11:39 AM EST Abdominal ascites BODY FLUID, CYTOSPIN, PATHOLOGIST INTERPRETATION Routine 10/23/2025 10:54 AM EST BODY FLUID CELL COUNT W/ MANUAL DIFFERENTIAL Routine 10/23/2025 10:54 AM EST BODY FLUID CULTURE AND GRAM STAIN Routine 10/23/2025 10:54 AM EST POCT GLUCOSE METER UNSOLICITED RESULTS Routine 10/23/2025 2:59 AM EST COMPREHENSIVE METABOLIC PANEL, PLASMA Routine 10/23/2025 2:56 AM EST MAGNESIUM, PLASMA Routine 10/23/2025 2:56 AM EST PHOSPHORUS, PLASMA Routine 10/23/2025 2:56 AM EST CBC W/O DIFFERENTIAL Routine 10/23/2025 2:56 AM EST POCT GLUCOSE METER UNSOLICITED RESULTS Routine 10/22/2025 8:24 PM EST POCT GLUCOSE METER UNSOLICITED RESULTS Routine 10/22/2025 4:55 PM EST POCT GLUCOSE METER UNSOLICITED RESULTS Routine 10/22/2025 11:50 AM EST POCT GLUCOSE METER UNSOLICITED RESULTS Routine 10/22/2025 7:46 AM EST POCT GLUCOSE METER UNSOLICITED RESULTS Routine 10/22/2025 3:47 AM EST COMPREHENSIVE METABOLIC PANEL, PLASMA Routine 10/22/2025 3:15 AM EST MAGNESIUM, PLASMA Routine 10/22/2025 3:15 AM EST PHOSPHORUS, PLASMA Routine 10/22/2025 3:15 AM EST CBC W/O DIFFERENTIAL Routine 10/22/2025 3:15 AM EST POCT GLUCOSE METER UNSOLICITED RESULTS Routine 10/21/2025 7:45 PM EST POCT GLUCOSE METER UNSOLICITED RESULTS Routine 10/21/2025 4:47 PM EST POCT GLUCOSE METER UNSOLICITED RESULTS Routine 10/21/2025 11:55 AM EST POCT GLUCOSE METER UNSOLICITED RESULTS Routine 10/21/2025 7:48 AM EST TRANSFUSE RED BLOOD CELLS Routine 10/21/2025 5:14 AM EST PREPARE RBC Routine 10/21/2025 4:50 AM EST CBC W/O DIFFERENTIAL Routine 10/21/2025 4:00 AM EST TYPE AND SCREEN Routine 10/21/2025 4:00 AM EST POCT GLUCOSE METER UNSOLICITED RESULTS Routine 10/21/2025 3:34 AM EST VITAMIN B12, SERUM Routine 10/21/2025 3:19 AM EST FOLATE, SERUM Routine 10/21/2025 3:19 AM EST FERRITIN, SERUM Routine 10/21/2025 3:19 AM EST COMPREHENSIVE METABOLIC PANEL, PLASMA Routine 10/21/2025 3:19 AM EST MAGNESIUM, PLASMA Routine 10/21/2025 3:19 AM EST PHOSPHORUS, PLASMA Routine 10/21/2025 3:19 AM EST CBC W/O DIFFERENTIAL Routine 10/21/2025 3:19 AM EST POCT GLUCOSE METER UNSOLICITED RESULTS Routine 10/20/2025 7:55 PM EST POCT GLUCOSE METER UNSOLICITED RESULTS Routine 10/20/2025 5:05 PM EST SEND RAHEL MESSAGE STAT 10/20/2025 3:24 PM EST URINALYSIS MICROSCOPIC FOR UA REFLEX STAT 10/20/2025 3:24 PM EST URINE SUBRAMANIAN PANEL Pending Discharge 10/20/2025 3:24 PM EST URINALYSIS WITH REFLEX MICROSCOPIC Pending Discharge 10/20/2025 3:24 PM EST URINALYSIS WITH REFLEX MICROSCOPIC AND CULTURE Routine 10/20/2025 3:24 PM EST URINE CULTURE STAT 10/20/2025 3:24 PM EST POCT GLUCOSE METER UNSOLICITED RESULTS Routine 10/20/2025 12:13 PM EST POCT GLUCOSE METER UNSOLICITED RESULTS Routine 10/20/2025 7:52 AM EST POCT GLUCOSE METER UNSOLICITED RESULTS Routine 10/20/2025 3:50 AM EST IRON & TOTAL IRON BINDING CAPACITY, PLASMA (INCLUDES TRANSFERRIN) Add-On 10/20/2025 3:46 AM EST COMPREHENSIVE METABOLIC PANEL, PLASMA Pending Discharge 10/20/2025 3:46 AM EST MAGNESIUM, PLASMA Pending Discharge 10/20/2025 3:46 AM EST PHOSPHORUS, PLASMA Pending Discharge 10/20/2025 3:46 AM EST CBC W/O DIFFERENTIAL Pending Discharge 10/20/2025 3:46 AM EST POCT GLUCOSE METER UNSOLICITED RESULTS Routine 10/19/2025 8:36 PM EST POCT GLUCOSE METER UNSOLICITED RESULTS Routine 10/19/2025 4:58 PM EST POCT GLUCOSE METER UNSOLICITED RESULTS Routine 10/19/2025 12:09 PM EST POCT GLUCOSE METER UNSOLICITED RESULTS Routine 10/19/2025 8:08 AM EST POCT GLUCOSE METER UNSOLICITED RESULTS Routine 10/19/2025 3:41 AM EST COMPREHENSIVE METABOLIC PANEL, PLASMA Pending Discharge 10/19/2025 3:21 AM EST MAGNESIUM, PLASMA Pending Discharge 10/19/2025 3:21 AM EST PHOSPHORUS, PLASMA Pending Discharge 10/19/2025 3:21 AM EST CBC W/O DIFFERENTIAL Pending Discharge 10/19/2025 3:21 AM EST POCT GLUCOSE METER UNSOLICITED RESULTS Routine 10/18/2025 8:49 PM EST POCT GLUCOSE METER UNSOLICITED RESULTS Routine 10/18/2025 6:06 PM EST POCT GLUCOSE METER UNSOLICITED RESULTS Routine 10/18/2025 4:59 PM EST POCT GLUCOSE METER UNSOLICITED RESULTS Routine 10/18/2025 11:21 AM EST POCT GLUCOSE METER UNSOLICITED RESULTS Routine 10/18/2025 7:56 AM EST COMPREHENSIVE METABOLIC PANEL, PLASMA Routine 10/18/2025 12:29 AM EST MAGNESIUM, PLASMA Routine 10/18/2025 12:29 AM EST PHOSPHORUS, PLASMA Routine 10/18/2025 12:29 AM EST CBC W/O DIFFERENTIAL Routine 10/18/2025 12:29 AM EST POCT GLUCOSE METER UNSOLICITED RESULTS Routine 10/17/2025 9:33 PM EST POCT GLUCOSE METER UNSOLICITED RESULTS Routine 10/17/2025 5:25 PM EST HC ABDOMINAL PARACENTESIS DIAGNOSIS/THERAPY WITHOUT IMAGING GUIDANCE Routine 10/17/2025 1:34 PM EST CAR[place] (acute kidney injury) Cirrhosis of liver with ascites, unspecified hepatic cirrhosis type IN ABDOM PARACENTESIS DX/THER W/O IMAGING GUIDANCE Routine 10/17/2025 1:34 PM EST [place] (acute kidney injury) Cirrhosis of liver with ascites, unspecified hepatic cirrhosis type BODY FLUID, CYTOSPIN, PATHOLOGIST INTERPRETATION Routine 10/17/2025 1:04 PM EST BODY FLUID CELL COUNT W/ MANUAL DIFFERENTIAL Routine 10/17/2025 1:04 PM EST ALBUMIN, PERITONEAL FLUID Routine 10/17/2025 12:47 PM EST TOTAL PROTEIN, PERITONEAL FLUID Routine 10/17/2025 12:47 PM EST BODY FLUID CULTURE AND GRAM STAIN Routine 10/17/2025 12:47 PM EST POCT GLUCOSE METER UNSOLICITED RESULTS Routine 10/17/2025 11:26 AM EST POCT GLUCOSE METER UNSOLICITED RESULTS Routine 10/17/2025 7:27 AM EST COMPREHENSIVE METABOLIC PANEL, PLASMA Routine 10/16/2025 11:35 PM EST MAGNESIUM, PLASMA Routine 10/16/2025 11:35 PM EST PHOSPHORUS, PLASMA Routine 10/16/2025 11:35 PM EST PROTHROMBIN TIME(PT) / INR Routine 10/16/2025 11:35 PM EST CBC W/O DIFFERENTIAL Routine 10/16/2025 11:35 PM EST POCT GLUCOSE METER UNSOLICITED RESULTS Routine 10/16/2025 7:43 PM EST POCT GLUCOSE METER UNSOLICITED RESULTS Routine 10/16/2025 4:45 PM EST MAGNESIUM, PLASMA Routine 10/16/2025 4:18 PM EST BASIC METABOLIC PANEL, PLASMA Routine 10/16/2025 4:18 PM EST BLOOD GAS PANEL, VENOUS Routine 10/16/20 2:51 PM EST POCT GLUCOSE METER UNSOLICITED RESULTS Routine 10/16/2025 11:10 AM EST POCT GLUCOSE METER UNSOLICITED RESULTS Routine 10/16/2025 7:33 AM EST IONIZED CALCIUM, WHOLE BLOOD Routine 10/16/2025 4:27 AM EST PHOSPHORUS, PLASMA Routine 10/16/2025 4:27 AM EST MAGNESIUM, PLASMA Routine 10/16/2025 4:27 AM EST BASIC METABOLIC PANEL, PLASMA Routine 10/16/2025 4:27 AM EST CBC W/O DIFFERENTIAL Routine 10/16/2025 4:27 AM EST POCT GLUCOSE METER UNSOLICITED RESULTS Routine 10/16/2025 3:23 AM EST POCT GLUCOSE METER UNSOLICITED RESULTS Routine 10/15/2025 8:34 PM EST POCT GLUCOSE METER UNSOLICITED RESULTS Routine 10/15/2025 4:22 PM EST IN CRITICAL CARE, E/M 30-74 MINUTES Routine 10/15/2025 2:44 PM EST Chronic obstructive pulmonary disease, unspecified COPD type (CMS/HCC) Cirrhosis of liver with ascites, unspecified hepatic cirrhosis type Coronary artery disease of [place] artery of [place] heart with stable angina pectoris Acute kidney injury 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) Systemic lupus erythematosus, unspecified SLE type, unspecified organ involvement status (CMS/HCC) Hyperlipidemia, unspecified hyperlipidemia type Self-care deficit Type 2 diabetes mellitus with hyperglycemia, with long-term current use of insulin POCT GLUCOSE METER UNSOLICITED RESULTS Routine 10/15/2025 11:58 AM EST POCT GLUCOSE METER UNSOLICITED RESULTS Routine 10/15/2025 7:39 AM EST IONIZED CALCIUM, WHOLE BLOOD Routine 10/15/2025 12:22 AM EST PHOSPHORUS, PLASMA Routine 10/15/2025 12:22 AM EST MAGNESIUM, PLASMA Routine 10/15/2025 12:22 AM EST BASIC METABOLIC PANEL, PLASMA Routine 10/15/2025 12:22 AM EST CBC W/O DIFFERENTIAL Routine 10/15/2025 12:22 AM EST POCT GLUCOSE METER UNSOLICITED RESULTS Routine 10/14/2025 7:54 PM EST POCT GLUCOSE METER UNSOLICITED RESULTS Routine 10/14/2025 5:10 PM EST POCT GLUCOSE METER UNSOLICITED RESULTS Routine 10/14/2025 3:21 PM EST IN CRITICAL CARE, E/M 30-74 MINUTES Routine 10/14/2025 2:42 PM EST Chronic kidney disease, stage 3b (CMS/HCC) Chronic obstructive pulmonary disease, unspecified COPD type (CMS/HCC) Cirrhosis of liver with ascites, unspecified hepatic cirrhosis type Shock (CMS/HCC) 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) Systemic lupus erythematosus, unspecified SLE type, unspecified organ involvement status (CMS/[facility]) Diabetic peripheral neuropathy Caregiver not readily available Hyperlipidemia, unspecified hyperlipidemia type Self-care deficit Type 2 diabetes mellitus with hyperglycemia, with long-term current use of insulin POCT GLUCOSE METER UNSOLICITED RESULTS Routine 10/14/2025 1:09 PM EST POCT GLUCOSE METER UNSOLICITED RESULTS Routine 10/14/2025 11:09 AM EST POCT GLUCOSE METER UNSOLICITED RESULTS Routine 10/14/2025 10:08 AM EST POCT GLUCOSE METER UNSOLICITED RESULTS Routine 10/14/2025 8:00 AM EST POCT GLUCOSE METER UNSOLICITED RESULTS Routine 10/14/2025 6:02 AM EST POCT GLUCOSE METER UNSOLICITED RESULTS Routine 10/14/2025 3:53 AM EST POCT GLUCOSE METER UNSOLICITED RESULTS Routine 10/14/2025 1:58 AM EST POCT GLUCOSE METER UNSOLICITED RESULTS Routine 10/14/2025 12:45 AM EST POCT GLUCOSE METER UNSOLICITED RESULTS Routine 10/13/2025 11:48 PM EST IONIZED CALCIUM, WHOLE BLOOD Routine 10/13/2025 11:38 PM EST PHOSPHORUS, PLASMA Routine 10/13/2025 11:38 PM EST MAGNESIUM, PLASMA Routine 10/13/2025 11:38 PM EST BASIC METABOLIC PANEL, PLASMA Routine 10/13/2025 11:38 PM EST CBC W/O DIFFERENTIAL Routine 10/13/2025 11:38 PM EST POCT GLUCOSE METER UNSOLICITED RESULTS Routine 10/13/2025 11:36 PM EST POCT GLUCOSE METER UNSOLICITED RESULTS Routine 10/13/2025 10:08 PM EST POCT GLUCOSE METER UNSOLICITED RESULTS Routine 10/13/2025 8:23 PM EST POCT GLUCOSE METER UNSOLICITED RESULTS Routine 10/13/2025 4:22 PM EST IN CRITICAL CARE, E/M 30-74 MINUTES Routine 10/13/2025 3:13 PM EST [place] (acute kidney injury) Cirrhosis of liver with ascites, unspecified hepatic cirrhosis type Shock (CMS/HCC) 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) Systemic lupus erythematosus, unspecified SLE type, unspecified organ involvement status (CMS/HCC) Caregiver not readily available Hepatic encephalopathy (CMS/HCC) Hyperlipidemia, unspecified hyperlipidemia type Self-care deficit Type 2 diabetes mellitus with hyperglycemia, with long-term current use of insulin POCT GLUCOSE METER UNSOLICITED RESULTS Routine 10/13/2025 11:27 AM EST POCT GLUCOSE METER UNSOLICITED RESULTS Routine 10/13/2025 10:08 AM EST POCT GLUCOSE METER UNSOLICITED RESULTS Routine 10/13/2025 9:35 AM EST POCT GLUCOSE METER UNSOLICITED RESULTS Routine 10/13/2025 9:18 AM EST POCT GLUCOSE METER UNSOLICITED RESULTS Routine 10/13/2025 7:21 AM EST POCT GLUCOSE METER UNSOLICITED RESULTS Routine 10/13/2025 6:14 AM EST POTASSIUM, PLASMA Routine 10/13/2025 6:14 AM EST POCT GLUCOSE METER UNSOLICITED RESULTS Routine 10/13/2025 3:38 AM EST POCT GLUCOSE METER UNSOLICITED RESULTS Routine 10/13/2025 2:00 AM EST POCT GLUCOSE METER UNSOLICITED RESULTS Routine 10/13/2025 12:08 AM EST IONIZED CALCIUM, WHOLE BLOOD Routine 10/13/2025 12:02 AM EST PHOSPHORUS, PLASMA Routine 10/13/2025 12:02 AM EST MAGNESIUM, PLASMA Routine 10/13/2025 12:02 AM EST BASIC METABOLIC PANEL, PLASMA Routine 10/13/2025 12:02 AM EST CBC W/O DIFFERENTIAL Routine 10/13/2025 12:02 AM EST POCT GLUCOSE METER UNSOLICITED RESULTS Routine 10/12/2025 10:15 PM EST POCT GLUCOSE METER UNSOLICITED RESULTS Routine 10/12/2025 8:51 PM EST POCT GLUCOSE METER UNSOLICITED RESULTS Routine 10/12/2025 5:41 PM EST IONIZED CALCIUM, WHOLE BLOOD Routine 10/12/2025 2:57 PM EST PHOSPHORUS, PLASMA Routine 10/12/2025 2:57 PM EST MAGNESIUM, PLASMA Routine 10/12/2025 2:57 PM EST BASIC METABOLIC PANEL, PLASMA Routine 10/12/2025 2:57 PM EST IN CRITICAL CARE, E/M 30-74 MINUTES Routine 10/12/2025 2:06 PM EST Chronic obstructive pulmonary disease, unspecified COPD type (CMS/HCC) Cirrhosis of liver with ascites, unspecified hepatic cirrhosis type Shock (CMS/HCC) Acute kidney injury 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) Systemic lupus erythematosus, unspecified SLE type, unspecified organ involvement status (CMS/HCC) Diabetic peripheral neuropathy BETA GLUCAN SERUM (SO) Routine 12:15 PM EST POCT GLUCOSE METER UNSOLICITED RESULTS Routine 10/12/2025 11:58 AM EST POCT GLUCOSE METER UNSOLICITED RESULTS Routine 10/12/2025 5:29 AM EST POCT GLUCOSE METER UNSOLICITED RESULTS Routine 10/12/2025 12:46 AM EST COMPREHENSIVE METABOLIC PANEL, PLASMA Routine 10/12/2025 12:41 AM EST PHOSPHORUS, PLASMA Routine 10/12/2025 12:41 AM EST MAGNESIUM, PLASMA Routine 10/12/2025 12:41 AM EST IONIZED CALCIUM, WHOLE BLOOD Routine 10/12/2025 12:41 AM EST CBC W/O DIFFERENTIAL Routine 10/12/2025 12:41 AM EST POCT GLUCOSE METER UNSOLICITED RESULTS Routine 10/11/2025 8:30 PM EST POCT GLUCOSE METER UNSOLICITED RESULTS Routine 10/11/2025 5:57 PM EST POCT GLUCOSE METER UNSOLICITED RESULTS Routine 10/11/2025 4:47 PM EST POCT GLUCOSE METER UNSOLICITED RESULTS Routine 10/11/2025 4:09 PM EST POCT GLUCOSE METER UNSOLICITED RESULTS Routine 10/11/2025 1:59 PM EST MICROBIOLOGY FREQUENCY OVERRIDE Routine 10/11/2025 12:01 PM EST METHICILLIN RESISTANT STAPHYLOCOCCUS AUREUS (MRSA) BY PCR Routine 10/11/2025 12:00 PM EST POCT GLUCOSE METER UNSOLICITED RESULTS Routine 10/11/2025 11:52 AM EST IN CRITICAL CARE, E/M 30-74 MINUTES Routine 10/11/2025 10:00 AM EST Cirrhosis of liver with ascites, unspecified hepatic cirrhosis type Shock (CMS/HCC) POCT GLUCOSE METER UNSOLICITED RESULTS Routine 10/11/2025 9:57 AM EST ECHO, ADULT TRANSTHORACIC COMPLETE STAT 10/11/2025 8:57 AM EST POCT GLUCOSE METER UNSOLICITED RESULTS Routine 10/11/2025 8:10 AM EST POCT GLUCOSE METER UNSOLICITED RESULTS Routine 10/11/2025 6:00 AM EST GLUCOSE, PLASMA Routine 10/11/2025 3:45 AM EST URINALYSIS MICROSCOPIC FOR UA REFLEX Routine 10/11/2025 3:31 AM EST COMPREHENSIVE URINE DRUG SCREENING,QUALITATIVE ASSAY, >= 27 DRUG CLASSES Routine 10/11/2025 3:31 AM EST SODIUM, URINE, RANDOM Routine 10/11/2025 3:31 AM EST CREATININE, RANDOM URINE Routine 025 3:31 AM EST URINALYSIS WITH REFLEX MICROSCOPIC Routine 10/11/2025 3:31 AM EST URINE CULTURE Routine 10/11/2025 3:31 AM EST STREPTOCOCCUS PNEUMONIAE AND LEGIONELLA URINARY ANTIGEN Routine 10/11/2025 3:31 AM EST METHICILLIN RESISTANT STAPHYLOCOCCUS AUREUS (MRSA) CULTURE Routine 10/11/2025 2:11 AM EST METHICILLIN RESISTANT STAPHYLOCOCCUS AUREUS (MRSA) BY PCR Routine 10/11/2025 2:11 AM EST NASOPHARYNGEAL RESPIRATORY PANEL Routine 10/11/2025 2:11 AM EST SARS COV-2/COVID-19 BY PCR Routine 10/11/2025 2:11 AM EST MULTI DRUG RESISTANCE TEST Routine 10/11/2025 2:11 AM EST TOMMY AURIS SURVEILLANCE BY PCR Routine 10/11/2025 2:11 AM EST HC ABDOMINAL PARACENTESIS DIAGNOSIS/THERAPY W IMAGING GUIDANCE Routine 10/11/2025 1:06 AM EST [place] (acute kidney injury) Chronic kidney disease, stage 3b (CMS/HCC) Cirrhosis of liver with ascites, unspecified hepatic cirrhosis type Shock (CMS/HCC) IN ABDOM PARACENTESIS DX/THER W IMAGING GUIDANCE Routine 10/11/2025 1:06 AM EST [place] (acute kidney injury) Chronic kidney disease, stage 3b (CMS/HCC) Cirrhosis of liver with ascites, unspecified hepatic cirrhosis type Shock (CMS/HCC) BODY FLUID, CYTOSPIN, PATHOLOGIST INTERPRETATION Routine 10/11/2025 12:36 AM EST BILIRUBIN, TOTAL, BODY FLUID (SO) Routine 10/11/2025 12:36 AM EST BODY FLUID CELL COUNT W/ MANUAL DIFFERENTIAL Routine 10/11/2025 12:36 AM EST POCT GLUCOSE METER UNSOLICITED RESULTS Routine 10/11/2025 12:32 AM EST LACTATE DEHYDROGENASE, PERITONEAL FLUID Routine 10/11/2025 12:29 AM EST GLUCOSE, PERITONEAL FLUID Routine 10/11/2025 12:29 AM EST ALBUMIN, PERITONEAL FLUID Routine 10/11/2025 12:29 AM EST TOTAL PROTEIN, PERITONEAL FLUID Routine 10/11/2025 12:29 AM EST BODY FLUID CULTURE AND GRAM STAIN Routine 10/11/2025 12:29 AM EST BLOOD CULTURE (AEROBIC/ANAEROBIC SET) Routine 10/11/2025 12:15 AM EST BLOOD CULTURE (AEROBIC/ANAEROBIC SET) Routine 10/11/2025 12:15 AM EST POCT GLUCOSE METER UNSOLICITED RESULTS Routine 10/10/2025 11:25 PM EST BETA HYDROXYBUTYRIC ACID Add-On 025 11:11 PM EST LACTATE DEHYDROGENASE, PLASMA Add-On 10/10/2025 11:11 PM EST TOTAL PROTEIN, PLASMA Add-On 10/10/2025 11:11 PM EST ALBUMIN, PLASMA Add-On 10/10/2025 11:11 PM EST HIV 1/2 ANTIBODY/ANTIGEN SCREEN WITH REFLEX TO HIV I/II DIFFERENTIATION Routine 10/10/2025 11:11 PM EST HIV 1/2 ANTIBODY/ANTIGEN SCREEN W/REFLEX TO HIV 1/2 ANTIBODY DIFFERENTIATION Routine 10/10/2025 11:11 PM EST ACUTE HEPATITIS PANEL Routine 10/10/2025 11:11 PM EST PHOSPHATIDYLETHANOL (PETH), WHOLE BLOOD, QUANTITATIVE (SO) Routine 10/10/2025 11:11 PM EST TYPE AND SCREEN Routine 10/10/2025 11:11 PM EST AMMONIA, PLASMA STAT 10/10/2025 11:11 PM EST PROTHROMBIN TIME(PT) / INR STAT 10/10/2025 11:11 PM EST MAGNESIUM, PLASMA STAT 10/10/2025 11:11 PM EST PHOSPHORUS, PLASMA STAT 10/10/2025 11:11 PM EST LACTATE, VENOUS STAT 10/10/2025 11:11 PM EST IONIZED CALCIUM, WHOLE BLOOD Routine 10/10/2025 11:11 PM EST CBC WITH AUTO DIFFERENTIAL STAT 10/10/2025 11:11 PM EST COMPREHENSIVE METABOLIC PANEL, PLASMA STAT 10/10/2025 11:11 PM EST BLOOD GAS PANEL, VENOUS STAT 10/10/20 11:11 PM EST APTT STAT 10/10/2025 11:11 PM EST CYSTATIN C Routine 10/10/2025 11:11 PM EST FREE T4, PLASMA Routine 10/10/2025 11:11 PM EST TSH Routine 10/10/2025 11:11 PM EST SALICYLATE, QUANTITATIVE, PLASMA Routine 10/10/2025 11:11 PM EST PROCALCITONIN, PLASMA Routine 10/10/2025 11:11 PM EST PREALBUMIN, PLASMA Routine 10/10/2025 11:11 PM EST N-TERMINAL PROBNP, PLASMA Routine 10/10/2025 11:11 PM EST CORTISOL Routine 10/10/2025 11:11 PM EST ALCOHOL PROFILE, PLASMA Routine 10/10/20 11:11 PM EST ACETAMINOPHEN, QUANTATATIVE, PLASMA Routine 10/10/2025 11:11 PM EST HEMOGLOBIN A1C Routine 10/10/2025 11:11 PM EST IONIZED CALCIUM, SERUM Routine 11:11 PM EST ECG ADULT STAT 10/10/2025 11:02 PM EST XR CHEST 1 VIEW STAT 10/10/2025 10:58 PM EST HC INSERT CATH,ART,PERCUT,SHORTTER M Routine 10/10/2025 10:52 PM EST [place] (acute kidney injury) Chronic obstructive pulmonary disease, unspecified COPD type (CMS/HCC) Cirrhosis of liver with ascites, unspecified hepatic cirrhosis type Shock (CMS/HCC) IN INSERT CATH,ART,PERCUT,SHORTTER M Routine 10/10/2025 10:52 PM EST [place] (acute kidney injury) Chronic obstructive pulmonary disease, unspecified COPD type (CMS/HCC) Cirrhosis of liver with ascites, unspecified hepatic cirrhosis type Shock (CMS/HCC) CVC TRIPLE LUMEN (SMARTFORM LINK) Routine 10/10/2025 10:51 PM EST Shock (CMS/HCC) HC INSERT NON-TUNNEL CV CATH Routine 10/10/2025 10:51 PM EST Shock (CMS/HCC) IN INSERT NON-TUNNEL CV CATH Routine 10/10/2025 10:51 PM EST Shock (CMS/HCC) IN CRITICAL CARE, E/M 30-74 MINUTES Routine 10/10/2025 7:12 PM EST [place] (acute kidney injury) Chronic kidney disease, stage 3b (CMS/HCC) Chronic obstructive pulmonary disease, unspecified COPD type (CMS/HCC) Cirrhosis of liver with ascites, unspecified hepatic cirrhosis type Coronary artery disease of [place] artery of [place] heart with stable angina pectoris Shock (CMS/HCC) Secondary esophageal varices without bleeding CT THORACIC OUTSIDE IMAGES 10/10/2025 12:[address] THORACIC OUTSIDE IMAGES 10/10/2025 12:05 PM EST US OUTSIDE IMAGES 10/10/2025 11:41 AM EST US CHEST OR UPPER BACK REGION SOFT TISSUE Routine 10/03/2025 3:25 PM EST Pleural effusion US GUIDED ABDOMINAL PARACENTESIS Routine 10/03/2025 3:25 PM EST Abdominal ascites BODY FLUID, CYTOSPIN, PATHOLOGIST INTERPRETATION Routine 10/03/2025 2:39 PM EST TOTAL PROTEIN, PERITONEAL FLUID Routine 10/03/2025 2:39 PM EST BODY FLUID CELL COUNT W/ MANUAL DIFFERENTIAL Routine 10/03/2025 2:39 PM EST XR CHEST 1 VIEW STAT 09/26/2025 9:37 AM EST US GUIDED ABDOMINAL PARACENTESIS Routine 09/26/2025 9:16 AM EST Abdominal ascites US GUIDED THORACENTESIS Routine 09/26/20 9:16 AM EST Other ascites GLUCOSE, PERITONEAL FLUID Routine 09/26/2025 7:56 AM EST TOTAL PROTEIN, PERITONEAL FLUID Routine 09/26/2025 7:56 AM EST BODY FLUID, CYTOSPIN, PATHOLOGIST INTERPRETATION Routine 09/26/2025 7:55 AM EST BODY FLUID CELL COUNT W/ MANUAL DIFFERENTIAL Routine 09/26/2025 7:55 AM EST POCT GLUCOSE METER UNSOLICITED RESULTS [...] 09/21/2025 8:03 PM EDT NON-INVASIVE VENTILATION Routine 8:00 PM EDT POCT GLUCOSE METER UNSOLICITED RESULTS Routine 09/21/2025 5:55 PM EDT POCT GLUCOSE METER UNSOLICITED RESULTS Routine 09/21/2025 11:11 AM EDT BASIC METABOLIC PANEL, PLASMA Routine 09/21/2025 10:25 AM EDT NON-INVASIVE VENTILATION Routine 8:00 AM EDT POCT GLUCOSE METER UNSOLICITED RESULTS Routine 09/21/2025 7:39 AM EDT POCT GLUCOSE METER UNSOLICITED RESULTS Routine 09/20/2025 8:05 PM EDT NON-INVASIVE VENTILATION Routine 8:00 PM EDT POCT GLUCOSE METER UNSOLICITED RESULTS Routine 09/20/2025 5:58 PM EDT POCT GLUCOSE METER UNSOLICITED RESULTS Routine 09/20/2025 11:13 AM EDT NON-INVASIVE VENTILATION Routine 8:00 AM EDT POCT GLUCOSE METER UNSOLICITED RESULTS Routine 09/20/2025 7:58 AM EDT BASIC METABOLIC PANEL, PLASMA Routine 09/20/2025 3:38 AM EDT POCT GLUCOSE METER UNSOLICITED RESULTS Routine 09/20/2025 2:54 AM EDT NON-INVASIVE VENTILATION Routine 8:00 PM EDT POCT GLUCOSE METER UNSOLICITED [...] STAT 09/19/2025 11:32 AM EDT US GUIDED THORACENTESIS Routine 09/19/20 10:28 AM EDT Other ascites US GUIDED ABDOMINAL PARACENTESIS Routine 09/19/2025 10:28 AM EDT Alcoholic cirrhosis of liver with ascites LACTATE DEHYDROGENASE, PLEURAL FLUID Routine 09/19/2025 10:11 AM EDT TOTAL PROTEIN, PLEURAL FLUID Routine 09/19/2025 10:11 AM EDT BODY FLUID CULTURE AND GRAM STAIN Routine 09/19/2025 10:11 AM EDT BODY FLUID, CYTOSPIN, PATHOLOGIST INTERPRETATION Routine 09/19/2025 10:10 AM EDT BODY FLUID CELL COUNT W/ MANUAL DIFFERENTIAL Routine 09/19/2025 10:10 AM EDT BODY FLUID, CYTOSPIN, PATHOLOGIST INTERPRETATION Routine 09/19/2025 9:18 AM EDT TOTAL PROTEIN, PERITONEAL FLUID Routine 09/19/2025 9:18 AM EDT LACTATE DEHYDROGENASE, PERITONEAL FLUID Routine 09/19/2025 9:18 AM EDT GLUCOSE, PERITONEAL FLUID Routine 09/19/2025 9:18 AM EDT ALBUMIN, PERITONEAL FLUID Routine 09/19/2025 9:18 AM EDT BODY FLUID CELL COUNT W/ MANUAL DIFFERENTIAL Routine 09/19/2025 9:18 AM EDT BODY FLUID CULTURE AND GRAM STAIN Routine 09/19/2025 9:18 AM EDT POCT GLUCOSE METER UNSOLICITED RESULTS Routine 09/19/2025 7:34 AM EDT POCT GLUCOSE METER UNSOLICITED RESULTS Routine 09/18/2025 8:19 PM EDT NON-INVASIVE VENTILATION Routine 8:00 PM EDT POCT GLUCOSE METER UNSOLICITED RESULTS Routine 09/18/2025 5:02 PM EDT POCT GLUCOSE METER UNSOLICITED RESULTS Routine 09/18/2025 11:23 AM EDT POCT GLUCOSE METER UNSOLICITED RESULTS Routine 09/18/2025 8:23 AM EDT BASIC METABOLIC PANEL, PLASMA Routine 09/18/2025 7:49 AM EDT POCT GLUCOSE METER UNSOLICITED RESULTS Routine 09/18/2025 7:46 AM EDT URINALYSIS MICROSCOPIC FOR UA REFLEX Routine 09/17/2025 10:22 PM EDT URINE SUBRAMANIAN PANEL Routine 09/17/2025 10:22 PM EDT URINALYSIS WITH REFLEX MICROSCOPIC Routine 09/17/2025 10:22 PM EDT URINALYSIS WITH REFLEX MICROSCOPIC AND CULTURE Routine 09/17/2025 10:22 PM EDT POCT GLUCOSE METER UNSOLICITED RESULTS Routine 09/17/2025 8:11 PM EDT EXTRA TUBE LAVENDER TOP Routine 09/17/20 6:36 PM EDT EXTRA TUBES Routine 09/17/2025 6:36 PM EDT BASIC METABOLIC PANEL, PLASMA Routine 09/17/2025 6:13 PM EDT MULTI DRUG RESISTANCE TEST Routine 09/17/2025 6:12 PM EDT POCT GLUCOSE METER UNSOLICITED RESULTS Routine 09/17/2025 5:34 PM EDT NON-INVASIVE VENTILATION Routine 025 5:20 PM EDT NON-INVASIVE VENTILATION Routine 025 5:20 PM EDT NON-INVASIVE VENTILATION Routine 025 5:20 PM EDT N-TERMINAL PROBNP, PLASMA Add-On 09/17/2025 9:44 AM EDT PAIN MANAGEMENT, QUANTITATIVE URINE DRUG TESTING Routine 09/17/2025 9:44 AM EDT End-stage liver disease (CMS/HCC) ALCOHOL, URINE Routine 09/17/2025 9:44 AM EDT End-stage liver disease (CMS/HCC) CBC W/O DIFFERENTIAL Routine 09/17/2025 9:44 AM EDT End-stage liver disease (CMS/HCC) COMPREHENSIVE METABOLIC PANEL, PLASMA Routine 09/17/2025 9:44 AM EDT End-stage liver disease (CMS/HCC) COMPREHENSIVE URINE DRUG SCREENING,QUALITATIVE ASSAY, >= 27 DRUG CLASSES Routine 09/17/2025 9:44 AM EDT End-stage liver disease (CMS/HCC) NICOTINE AND COTININE METABOLITE, SERUM, QUANTITATIVE Routine 09/17/2025 9:44 AM EDT End-stage liver disease (CMS/HCC) PAIN MANAGEMENT, QUANTITATIVE URINE DRUG TESTING Routine 09/17/2025 9:44 AM EDT End-stage liver disease (CMS/HCC) PROTHROMBIN TIME(PT) / INR Routine 09/17/2025 9:44 AM EDT End-stage liver disease (CMS/HCC) CEA, SERUM Routine 09/17/2025 9:44 AM EDT End-stage liver disease (CMS/HCC) XR CHEST 1 VIEW STAT 09/10/2025 9:55 [...] 09/05/20 11:42 AM EDT Other ascites BODY FLUID, [...] 08/29/20 11:09 AM EDT Other ascites BODY FLUID, [...] 08/22/20 12:05 PM EDT Other ascites BODY FLUID, [...] 3:26 AM EDT PHOSPHORUS, PLASMA Routine 08/20/2025 3:26 AM EDT MAGNESIUM, PLASMA Routine 08/20/2025 3:26 AM EDT COMPREHENSIVE METABOLIC PANEL, PLASMA Routine [...] 08/19/2025 11:18 AM EDT NON-INVASIVE VENTILATION Routine 025 8:00 AM EDT POCT GLUCOSE METER UNSOLICITED RESULTS Routine 08/19/2025 7:34 AM EDT POCT GLUCOSE METER UNSOLICITED RESULTS Routine 08/19/2025 2:08 AM EDT PROTHROMBIN TIME(PT) / INR Routine 08/19/2025 1:30 AM EDT PHOSPHORUS, PLASMA Routine 08/19/2025 1:06 AM EDT MAGNESIUM, PLASMA Routine 08/19/2025 1:06 AM EDT COMPREHENSIVE METABOLIC PANEL, PLASMA Routine 08/19/2025 1:06 AM EDT CBC WITH AUTO DIFFERENTIAL Routine 08/19/2025 1:06 AM EDT POCT GLUCOSE METER UNSOLICITED RESULTS Routine 08/18/2025 10:15 PM EDT POCT GLUCOSE METER UNSOLICITED RESULTS Routine 08/18/2025 8:17 PM EDT POCT GLUCOSE METER UNSOLICITED RESULTS Routine 08/18/2025 4:26 PM EDT PROTEIN, URINE, RANDOM WITH CREATININE Routine 08/18/2025 4:15 PM EDT NON-INVASIVE VENTILATION Routine 025 4:02 PM EDT NON-INVASIVE VENTILATION Routine 025 4:02 PM EDT NON-INVASIVE VENTILATION Routine 025 4:02 PM EDT PROTHROMBIN TIME(PT) / INR STAT 08/18/2025 7:32 AM EDT ECG ADULT STAT 08/18/2025 6:18 AM EDT OSMOLALITY, SERUM Add-On 08/18/2025 6:11 AM EDT BLOOD GAS PANEL, VENOUS STAT 08/18/20 6:11 AM EDT LIPASE, PLASMA STAT 08/18/2025 6:11 AM EDT PHOSPHORUS, PLASMA STAT 08/18/2025 6:11 AM EDT MAGNESIUM, PLASMA STAT 08/18/2025 6:11 AM EDT COMPREHENSIVE METABOLIC PANEL, PLASMA STAT 08/18/2025 6:11 AM EDT PROTHROMBIN TIME(PT) / INR STAT 08/18/2025 6:11 AM EDT CBC WITH AUTO DIFFERENTIAL STAT 08/18/2025 6:11 AM EDT XR OUTSIDE IMAGES 08/17/2025 4:[address] THORACIC OUTSIDE IMAGES 08/17/2025 4:[address] THORACIC OUTSIDE IMAGES 08/17/2025 4:[address] NEURO OUTSIDE IMAGES 08/17/20 4:36 PM EDT US CHEST Routine 2025 10:08 AM EDT Other ascites US GUIDED ABDOMINAL PARACENTESIS Routine 2025 10:08 AM EDT Alcoholic cirrhosis of liver with ascites (CMS/HCC) TOTAL PROTEIN, PERITONEAL FLUID Routine 2025 9:25 AM EDT BODY FLUID CELL COUNT W/O DIFF Routine 2025 9:25 AM EDT COMPREHENSIVE ORAL EVALUATION - NEW OR ESTABLISHED PATIENT Routine 12/17/2024 2:30 PM EST Liver failure without hepatic coma, unspecified chronicity (CMS/HCC) Caries DEXA BONE DENSITY Routine 11/07/2024 9:09 AM EST End-stage liver disease (CMS/HCC) COLONOSCOPY EXTERNAL RESULT 01/14/2023 CYTO DATA CONVERSION Routine 04/12/2003 12:00 AM EDT from Last 3 Months or Most Recently Relevant to Health Maintenance Results * US Guided Abdominal Paracentesis (11/06/2025 8:37 AM EST) Only the most recent of11 resultswithin the [...] Narrative 11/06/2025 3:34 PM EST CLINICAL INDICATION: Monika Zimmer is a 65 y.o. female with a PMHx of NAIDU cirrhosis decompensated by ascites, hepatic hydrothorax, hepatic encephalopathy, esophageal varices TECHNIQUE: Supervisor Shipping: [employer] Department Chair: None. Rad Dose: NA Medications: Continuous physiologic [...] Marcel Magaña MD - 11/06/2025 CLINICAL INDICATION: Monika Zimmer is a 65 y.o. female with a PMHx of NAIDU cirrhosisdecompensated by ascites, hepatic hydrothorax, hepatic encephalopathy,esophageal varices TECHNIQUE: Supervisor Shipping: [employer] Department Chair: None. Rad Dose: NA Medications: Continuous physiologic [...] MD on 11/06/2025 3:34 PM us Marianna N Cheeks SUPERVISOR GRINDING IMG US PROCEDURES Final Resu lt * US Chest (11/06/2025 8:37 AM EST) Only the most recent of3 resultswithin the [...] MD on 11/06/2025 3:34 PM us Marianna N Cheeks SUPERVISOR [employer] IMG US PROCEDURES Final Resu lt * (ABNORMAL) Body Fluid Cell Count With Diff - Ascites (11/06/2025 8:06 AM EST) Only the most recent of16 resultswithin the time period is included. Color, Body fluid [place] [facility] HEMATOLOGY METHOD 11/06/2025 4:07 PM [facility] Appearance, Body fluid Cloudy(A) LAB HEMATOLOGY METHOD 11/06/2025 4:07 PM [facility] Volume, Body fluid 37.0 cc LAB HEMATOLOGY METHOD 11/06/2025 4:07 PM [facility] Fluid Container Specimen received in miscellaneous container LAB HEMATOLOGY METHOD 11/06/2025 4:07 PM [facility] Red Blood Cell Count, Body fluid 5,000 uL LAB HEMATOLOGY METHOD 11/06/2025 4:07 PM [facility] Total Nucleated Cell Count, Body fluid 54 uL LAB HEMATOLOGY METHOD 11/06/2025 4:07 PM [facility] Neutrophils %, Body fluid 12 % LAB HEMATOLOGY METHOD 11/06/2025 4:07 PM [facility] Lymphocytes %, Body fluid 62 % LAB HEMATOLOGY METHOD 11/06/2025 4:07 PM [facility] Monocytes/Macr ophages %, Body fluid 25 % LAB HEMATOLOGY METHOD 11/06/2025 4:07 PM [facility] Eosinophils %, Body fluid 0 % LAB HEMATOLOGY METHOD 11/06/2025 4:07 PM [facility] Lining/Mesothe lial Cells %, Body fluid 1 % LAB HEMATOLOGY METHOD 11/06/2025 4:07 PM [facility] Neutrophils Absolute (PMN), Body fluid 6 uL LAB HEMATOLOGY METHOD 11/06/2025 4:07 PM [facility] Lymphocytes Absolute, Body fluid 33 uL LAB HEMATOLOGY METHOD 11/06/2025 4:07 PM [facility] Monocytes/Macr ophages Absolute, Body fluid 14 uL LAB HEMATOLOGY METHOD 11/06/2025 4:07 PM [facility] Eosinophils Absolute, Body fluid 0 uL LAB HEMATOLOGY METHOD 11/06/2025 4:07 PM [facility] Basophils Absolute, Body fluid 0 uL LAB HEMATOLOGY METHOD 11/06/2025 4:07 PM EST [facility] Lining/Mesothe lial Cells Absolute, Body fluid 1 uL LAB HEMATOLOGY METHOD 11/06/2025 4:07 PM EST [facility] Basophils %, Body fluid 0 % LAB HEMATOLOGY METHOD 11/06/2025 4:07 PM EST [facility] Body Fluid Peritoneal fluid / Unknown Non-blood Collection / Unknown 11/06/2025 8:06 AM EST 11/06/2025 9:56 AM EST us Shaniqua Mccurdy APRN LAB BODY FLUIDS AND STOOLS ORDERABLES NO SPECIMEN TYPE/SOURCE Final Result Performing Organization Address City/State/[facility] Co de Phone Number [facility] [address] [place] [address] * Body fluid, cytospin, pathologist interpretation (11/06/2025 8:06 AM EST) Only the most recent of16 resultswithin the time period is included. Specimen Type Body Fluid LAB HEMATOLOGY METHOD 11/07/2025 4:37 PM EST [facility] Specimen Source, Body Fluid Peritoneal Fluid LAB HEMATOLOGY METHOD 11/07/2025 4:37 PM EST [facility] Clinical Diagnosis, Body Fluid Cirrhosis, ascites LAB HEMATOLOGY METHOD 11/07/2025 4:37 PM EST [facility] Interpretation , Body Fluid Negative for malignancy, bloody specimen with predominantly chronic inflammatory cells. A resident was involved in the service. I attest I examined the relevant preparations for the specimens and confirmed the diagnosis or interpretation. 11/07/2025 4:37 PM EST [facility] Pathologist Signature, Body Fluid 11/07/2025 4:37 PM EST [facility] Comment:Reviewed by: Anuj carrillo MD LAB CP ASR DISCLAIMER Yes 11/07/2025 4:37 PM EST [facility] Body Fluid Peritoneal fluid / Unknown Non-blood Collection / Unknown 11/06/2025 8:06 AM EST 11/06/2025 9:56 AM EST us Shaniqua Mccurdy APRN LAB BODY FLUIDS AND STOOLS O RDERABLES Final Result [facility] [address] [place] [address] * Protein - Ascites (11/06/2025 8:00 AM EST) Only the most recent of12 resultswithin the time period is included. Total Protein, Fluid 0.8 g/dL 11/06/2025 11:12 AM EST [facility] Peritoneal Fluid Peritoneal cavity structure / Unknown Non-blood Collection / Unknown 11/06/2025 8:00 AM EST 11/06/2025 9:56 AM EST Narrative [facility] - 11/06/2025 11:12 AM EST This test was developed and its performance characteristics determined by [facility]. The U.S. Food and Drug Administration has not approved or cleared this test. However, FDA clearance or approval is not currently required for clinical use. The results are not intended to be used as the sole means for clinical diagnosis or patient management decisions. Shaniqua Mccurdy SUPERVISOR GRINDING LAB BODY FLUIDS AND STOOLS O RDERABLES Final Result Performing Organization Address [facility] Co de Phone Number [facility] [address] [place] [address] * Glucose - Ascites (11/06/2025 8:00 AM EST) Only the most recent of6 resultswithin the time period is included. Glucose, Fluid 250 mg/dL 11/06/2025 11:12 AM EST [facility] Peritoneal Fluid Peritoneal cavity structure / Unknown Non-blood Collection / Unknown 11/06/2025 8:00 AM EST 11/06/2025 9:56 AM EST Narrative [facility] - 11/06/2025 11:12 AM EST Peritoneal/Ascites [...] O RDERABLES Final Result Performing Organization Address City/[facility]/ZIP Co de Phone Number [facility] [address] [place] [address] * (ABNORMAL) POCT glucose meter (10/23/2025 5:16 PM EST) Only the most recent of121 resultswithin the time period is included. Pathologist [facility] POCT Glucose 365(H) 74 - 99 mg/dL 10/23/2025 5:18 PM EST [facility] Comment:Accuracy of a glucos e result obtained from a capillary whole blood specimen relies upon adequate, non-compromised capillary blood flow. If the capillary glucose result is not consistent with the patient's clinical signs and symptoms, glucose testing should be repeated with either an arterial or venous sample on the glucometer or sent to the main labortory for testing. Comment 10/23/2025 5:18 PM EST [facility] Humanities Department Chair ID Tatianna Santos Rachael 10/23/2025 5:18 PM EST [facility] Device ID [id number] 10/23/2025 5:18 PM EST [facility] Specimen Type POC Capillary 10/23/2025 5:18 PM EST [facility] Blood Capillary blood specimen / Unknown 10/23/2025 5:16 PM EST 10/23/2025 5:18 PM EST us Maria Dolores Clemons MD LAB POINT OF CARE TEST DOCKED DEVICE UNSOLICITED RESULTS Final Result Performing Organization Address City/[facility] Co de Phone Number [facility] [address] [place] [address] * Body Fluid Culture and Gram Stain (10/23/2025 10:54 AM EST) Only the most recent of6 resultswithin the time period is included. Pathologist [facility] Culture No growth at day 4 2024 3:59 PM EST [facility] Gram Stain Result Rare Polymorphonuclear leukocytes 10/26/2025 3:59 PM EST [facility] Gram Stain Result No organisms seen 10/26/2025 3:59 PM EST [facility] Peritoneal Fluid Peritoneal cavity structure / Unknown Non-blood Collection / Unknown 10/23/2025 10:54 AM EST 10/23/2025 1:18 PM EST us Maria Dolores Clemons MD LAB MICROBIOLOGY - GENERAL ORDERABLES Final Result [facility] [address] [place] [address] * (ABNORMAL) CBC W/O Differential (10/23/2025 2:56 AM EST) Only the most recent of15 resultswithin the time period is included. WBC Count 8.81 3.70 - 10.30 10*3/uL LAB HEMATOLOGY METHOD 10/23/2025 3:26 AM EST [facility] RBC Count 2.59(L) 3.90 - 5.20 10*6/uL LAB HEMATOLOGY METHOD 10/23/2025 3:26 AM EST [facility] HGB 8.1(L) 11.2 - 15.7 g/dL LAB HEMATOLOGY METHOD 10/23/2025 3:26 AM EST [facility] HCT 24.3(L) 34.0 - 45.0 % LAB HEMATOLOGY METHOD 10/23/2025 3:26 AM EST [facility] Platelet Count 48(L) 155 - 369 10*3/uL LAB HEMATOLOGY METHOD 10/23/2025 3:26 AM EST [facility] MCV 94 79 - 98 fL LAB HEMATOLOGY METHOD 10/23/2025 3:26 AM EST [facility] MCH 31.3 26.0 - 32.0 pg LAB HEMATOLOGY METHOD 10/23/2025 3:26 AM EST [facility] MCHC 33.3 30.7 - 35.5 g/dL LAB HEMATOLOGY METHOD 10/23/2025 3:26 AM EST [facility] RDW 18.3(H) 11.5 - 14.5 % LAB HEMATOLOGY METHOD 10/23/2025 3:26 AM EST [facility] MPV 11.6 8.8 - 12.5 fL LAB HEMATOLOGY METHOD 10/23/2025 3:26 AM EST [facility] nRBC 0.0 <=0.0 per 100 WBCs LAB HEMATOLOGY METHOD 10/23/2025 3:26 AM EST [facility] Blood Venous blood specimen / Unknown Venipuncture / Unknown 10/23/2025 2:56 AM EST 10/23/2025 3:26 AM EST Hosted Systemsna C Mcnab PA LAB BLOOD ORDERABLES Final Res ult Performing Organization Address [facility] Co de Phone Number [facility] [address] [place] [address] * Phosphorus, Plasma (10/23/2025 2:56 AM EST) Only the most recent of17 resultswithin the time period is included. Phosphorus, Plasma 4.2 2.5 - 4.5 mg/dL 10/23/2025 3:53 AM EST [facility] Blood Venous blood specimen / Unknown Venipuncture / Unknown 10/23/2025 2:56 AM EST 10/23/2025 3:24 AM EST [employer] C Mcnab PA LAB BLOOD ORDERABLES Final Res ult Performing Organization Address [facility] Phone Number [facility] [address] [place] [address] * Magnesium, Plasma (10/23/2025 2:56 AM EST) Only the most recent of18 resultswithin the time period is included. Magnesium, Plasma 2.2 1.9 - 2.4 mg/dL 10/23/2025 3:53 AM EST [facility] Blood Venous blood specimen / Unknown Venipuncture / Unknown 10/23/2025 2:56 AM EST 10/23/2025 3:24 AM EST [employer] C Mcnab PA LAB BLOOD ORDERABLES Final Res ult Performing Organization Address [facility] de Phone Number [facility] [address] [place] [address] * (ABNORMAL) Comprehensive Metabolic Panel, Plasma (10/23/2025 2:56 AM EST) Only the most recent of13 resultswithin the time period is included. Glucose, Plasma 259(H) 74 - 99 mg/dL 10/23/2025 3:53 AM EST [facility] BUN, Plasma 84(H) 8 - 23 mg/dL 10/23/2025 3:53 AM [facility] Creatinine, Plasma 2.00(H) 0.60 - 1.10 mg/dL 10/23/2025 3:53 AM EST [facility] BUN/Creatinine Ratio 42 10/23/2025 3:53 AM EST [facility] Sodium, Plasma 131(L) 136 - 145 mmol/L 10/23/2025 3:53 AM [facility] Potassium, Plasma 3.9 3.6 - 4.9 mmol/L 10/23/2025 3:53 AM [facility] Chloride, Plasma 104 97 - 107 mmol/L 10/23/2025 3:53 AM [facility] CO2, Plasma 17(L) 22 - 29 mmol/L 10/23/2025 3:53 AM [facility] Anion Gap 10 6 - 16 mmol/L 10/23/2025 3:53 AM [facility] Total Calcium, Plasma 9.7 8.9 - 10.2 mg/dL 10/23/2025 3:53 AM [facility] Total Protein 5.8(L) 6.3 - 7.9 g/dL 10/23/2025 3:53 AM [facility] Albumin, Plasma 3.7 3.5 - 5.2 g/dL 10/23/2025 3:53 AM [facility] AST, Plasma 35 10 - 35 U/L 10/23/2025 3:53 AM [facility] ALT, Plasma 27 10 - 35 U/L 10/23/2025 3:53 AM [facility] Alkaline Phosphatase, Plasma 152(H) 46 - 142 U/L 10/23/2025 3:53 AM [facility] Total Bilirubin, Plasma 1.6(H) 0.2 - 1.1 mg/dL 10/23/2025 3:53 AM [facility] eGFRcr 27.6 mL/min/1.7 3m*2 10/23/2025 3:53 AM [facility] Comment:Reported eGFRcr in m L/min/1.73m2 is based the CKD-EPI 2020 equation that does not use a race coefficient. Blood Venous blood specimen / Unknown Venipuncture / Unknown 10/23/2025 2:56 AM EST 10/23/2025 3:24 AM EST Maureen Lamb PA LAB BLOOD ORDERABLES Final Res ult [facility] [address] [place] [address] * Transfuse RBC (10/21/2025 7:13 AM EST) Skye Santiago APRN BLOOD TRANSFUSION ORDERABLES Final Result * Prepare Leukocyte Reduced RBC: 1 Units (10/21/2025 4:50 AM EST) Product Code [id number] BLOO D BANK Dispense Status Transfused BLOOD BANK Blood Expiration Date [id number] BLOOD BANK Unit Number [id number] B LOOD BANK Product Blood Type 5100 BLOOD BANK Blood Type O+ BLOOD BANK Crossmatch Compatible BLOOD BANK Other Skye Santiago APRN BLOOD BANK PRODUCT ORDERABLE S Final Result Performing Organization Address [facility] Co de Phone Number BLOOD BANK [address] [place] [address], * Type and Screen (10/21/2025 4:00 AM EST) Only the most recent of2 resultswithin the time period is included. ABO/Rh O Positive 10/21/2025 4:08 AM EST BLOOD BANK Antibody Screen Negative 10/21/2025 4:08 AM EST BLOOD BANK Specimen Expiration 10/24/2025 23:59 10/21/2025 4:08 AM EST BLO[facility] BANK Blood Venous blood specimen / Unknown Venipuncture / Unknown 10/21/2025 4:00 AM EST 10/21/2025 4:08 AM EST Skye Santiago APRN LAB BLOOD BANK TEST ORDERABL ES Final Result BLOOD BANK [address] [place] [address], * Folate (10/21/2025 3:19 AM EST) Folate, Serum 6.8 >4.6 ng/mL 10/21/2025 8:43 AM EST [facility] Blood Venous blood specimen / Unknown Venipuncture / Unknown 10/21/2025 3:19 AM EST 10/21/2025 3:24 AM EST us Aisha Sanchez MD LAB BLOOD ORDERABLES Final Resul t [facility] [address] [place] [address] * Ferritin, Serum (10/21/2025 3:19 AM EST) Ferritin, Serum 83 13 - 150 ng/mL 10/21/2025 8:44 AM EST [facility] Blood Venous blood specimen / Unknown Venipuncture / Unknown 10/21/2025 3:19 AM EST 10/21/2025 3:24 AM EST us Aisha Sanchez MD LAB BLOOD ORDERABLES Final Resul t Performing Organization Address City/[facility]/ZIP Co de Phone Number [facility] [address] [place] [address] * Vitamin B12 (10/21/2025 3:19 AM EST) Vitamin B12, Serum 961 210 - 1,033 pg/mL 10/21/2025 8:44 AM EST [facility] Blood Venous blood specimen / Unknown Venipuncture / Unknown 10/21/2025 3:19 AM EST 10/21/2025 3:24 AM EST us Aisha Sanchez MD LAB BLOOD ORDERABLES Final Resul t [facility] [address] [place] [address] * SEND RAHEL MESSAGE (10/20/2025 3:24 PM EST) Urine Urine specimen obtained by clean catch procedure / Unknown Non-blood Collection / Unknown 10/20/2025 3:24 PM EST 10/20/2025 3:28 PM EST us Aisha Sanchez MD LAB URINE ORDERABLES Final Resul t Performing Organization Address [facility] de Phone Number [facility] [address] [place] [address] * Urine Subramanian Panel (10/20/2025 3:24 PM EST) Only the most recent of2 resultswithin the time period is included. Extra Sent for Culture 10/20/2025 5:01 PM EST [facility] Urine Urine specimen obtained by clean catch procedure / Unknown Non-blood Collection / Unknown 10/20/2025 3:24 PM EST 10/20/2025 3:28 PM EST us Aisha Sanchez MD LAB URINE ORDERABLES Final Resul t Performing Organization Address [facility] Phone Number [facility] [address] [place] [address] * Urinalysis Microscopic Examination (10/20/2025 3:24 PM EST) Only the most recent of3 resultswithin the time period is included. Urine Urine specimen obtained by clean catch procedure / Unknown Non-blood Collection / Unknown 10/20/2025 3:24 PM EST 10/20/2025 3:28 PM EST Aisha Sanchez MD LAB URINE ORDERABLES Final Resul t Performing Organization Address [facility] Phone Number [facility] [address] [place] [address] * (ABNORMAL) Urinalysis with reflex microscopic (Culture NOT Included) (10/20/2025 3:24 PM EST) Only the most recent of3 resultswithin the time period is included. Color, Urine Yellow LAB URINALYSIS - AUTOMATED METHOD 10/20/2025 3:54 PM EST [facility] Clarity, Urine Cloudy LAB URINALYSIS - AUTOMATED METHOD 10/20/2025 3:54 PM EST [facility] Spec [place], Urine 1.020 1.005 - 1.030 LAB URINALYSIS - AUTOMATED METHOD 10/20/2025 3:54 PM EST [facility] pH, Urine 6.0 5.0 - 8.0 LAB URINALYSIS - AUTOMATED METHOD 10/20/2025 3:54 PM EST [facility] Protein, Urine Trace(A) Negative mg/dL LAB URINALYSIS - AUTOMATED METHOD 10/20/2025 3:54 PM EST [facility] Glucose, Urine Negative Negative mg/dL LAB URINALYSIS - AUTOMATED METHOD 10/20/2025 3:54 PM EST [facility] Ketones, Urine Negative Negative mg/dL LAB URINALYSIS - AUTOMATED METHOD 10/20/2025 3:54 PM EST [facility] Blood, Urine Large(A) Negative LAB URINALYSIS - AUTOMATED METHOD 10/20/2025 3:54 PM EST [facility] Bilirubin, Urine Negative Negative LAB URINALYSIS - AUTOMATED METHOD 10/20/2025 3:54 PM EST [facility] Urobilinogen, Urine 0.2 0.2 to 1.0 mg/dL LAB URINALYSIS - AUTOMATED METHOD 10/20/2025 3:54 PM [facility] Leukocytes, Urine Large(A) Negative LAB URINALYSIS - AUTOMATED METHOD 10/20/2025 3:54 PM [facility] Nitrite, Urine Negative Negative LAB URINALYSIS - AUTOMATED METHOD 10/20/2025 3:54 PM EST [facility] RBC, Urine 31 - 50(A) 0 to 3 /HPF 10/20/2025 3:54 PM EST [facility] Comment:This result was prev iously suppressed from the chart. WBC, Urine >50(A) 0 to 5 /HPF 10/20/2025 3:54 PM EST [facility] Comment:This result was prev iously suppressed from the chart. Squamous Epithelial Cells 0 - 2 0 to 5 /HPF 10/20/2025 3:54 PM EST [facility] Comment:This result was prev iously suppressed from the chart. Hyaline Casts 0 - 2 0 to 5 /LPF 10/20/2025 3:54 PM EST [facility] Comment:This result was prev iously suppressed from the chart. Bacteria, Urine Present Negative 10/20/2025 3:54 PM EST [facility] Comment:This result was prev iously suppressed from the chart. Yeast (Budding and/or Pseudohyphae) Present(A) Absent 10/20/2025 3:54 PM EST [facility] Comment:This result was prev iously suppressed from the chart. Urine Urine specimen obtained by clean catch procedure / Unknown Non-blood Collection / Unknown 10/20/2025 3:24 PM EST 10/20/2025 3:28 PM EST Narrative [facility] - 10/20/2025 3:54 PM EST Performed by manual method us Aisha Sanchez MD LAB URINE ORDERABLES Final Resul t Performing Organization Address City/[facility] de Phone Number [facility] [address] [place] [address] * (ABNORMAL) Urine Culture (10/20/2025 3:24 PM EST) Only the most recent of2 resultswithin the time period is included. Culture 10,000 - 100,000 CFU/mL Tommy albicans(A) 10/22/2025 3:03 PM EST [facility] Comment: This isolate has been identified using the FDA Approved [employer] [place] System Edited result: Previously reported as Yeast on 10/21/2025 at 1801 EST. Urine Urine specimen obtained by clean catch procedure / Unknown Non-blood Collection / Unknown 10/20/2025 3:24 PM EST 10/20/2025 3:28 PM EST us Aisha Sanchez MD LAB MICROBIOLOGY - GENERAL ORDER FAMILIA Final Result Performing Organization Address [facility] Co de Phone Number [facility] [address] [place] [address] * (ABNORMAL) Iron & Total Iron Binding Capacity, Plasma (Includes Transferrin) (10/20/2025 3:46 AM EST) Iron, Plasma 46 30 - 160 ug/dL 10/20/2025 4:03 PM EST [facility] Transferrin, Plasma 92(L) 200 - 360 mg/dL 10/20/2025 4:03 PM EST [facility] Total Iron Binding Capacity, Plasma 115(L) 240 - 450 ug/mL 10/20/2025 4:03 PM EST [facility] Transferrin Saturation 40 14 - 50 % 10/20/2025 4:03 PM EST [facility] Blood Venous blood specimen / Unknown Venipuncture / Unknown 10/20/2025 3:46 AM EST 10/20/2025 3:49 AM EST us Aisha Sanchez MD LAB BLOOD ORDERABLES Final Resul t [facility] [address] [place] [address] * IN ABDOM PARACENTESIS DX/THER W/O IMAGING GUIDANCE, HC ABDOMINAL PARACENTESIS DIAGNOSIS/THERAPY WITHOUT IMAGING GUIDANCE (10/17/2025 1:34 PM EST) Anatomical Region Laterality Modality Other Narrative 10/17/2025 1:34 PM EST Deric Johnson MD 10/17/2025 2:04 PM Paracentesis Performed by: Tank Akbar MD Authorized by: Deric Johnson MD Consent: Consent obtained: Verbal and written Consent given by: Patient Risks discussed: Bleeding, bowel perforation, infection and pain [place]s [place]ing protocol: Patient identity confirmed: Arm band Attending Supervision?: yes Procedure details: Needle gauge: 20 Fluid appearance: Serosanguinous Post-procedure details: Procedure completion: Tolerated Comments: Indicated for nausea in setting of normal weekly procedures. 5cm pocket identified by US. Vascular probe confirmed no large vessels at site. Finder needle introduced with lidocaine. Safety centesis kit used. 6L removed. Basic labs sent. 25% albumin 50gm given post procedure. Patient comfortable. us Deric Johnson MD IN CLINIC/BEDSIDE ORDERABLES Fin al Result * Albumin - Ascites (10/17/2025 12:47 PM EST) Only the most recent of3 resultswithin the time period is included. Albumin, Peritoneal Fluid 0.3 g/dL 10/17/2025 4:58 PM EST [facility] Ascites Peritoneal cavity structure / Unknown 10/17/2025 12:47 PM EST 10/17/2025 1:00 PM EST Narrative [facility] - 10/17/2025 4:58 PM EST REPORTING RESULTS Reference Values: No established reference interval. Results should be interpreted in comparison to the concentration in blood and in conjunction with the clinical context. This test was developed and its performance characteristics determined by [facility]. The U.[place]. Food and Drug Administration has not approved or cleared this test; however, FDA clearance or approval is not currently required for clinical use. The results are not intended to be used as the sole means for clinical diagnosis or patient management decisions. Deric Johnson MD LAB BODY FLUIDS AND STOOLS ORDER FAMILIA Final Result Performing Organization Address City/[facility] Co de Phone Number [facility] [address] [place] [address] * (ABNORMAL) Prothrombin Time/INR (10/16/2025 11:35 PM EST) Only the most recent of7 resultswithin the time period is included. Prothrombin Time 23.4(H) 12.0 - 14.3 sec 10/17/2025 12:38 AM EST [facility] INR 2.0(H) 0.9 - 1.1 10/17/2025 12:38 AM EST [facility] Blood Venous blood specimen / Unknown Venipuncture / Unknown 10/16/2025 11:35 PM EST 10/17/2025 12:19 AM EST Narrative [facility] - 10/17/2025 12:38 AM EST OPTIMAL INR RANGES FOR PATIENT ON ORAL ANTICOAGULANT THERAPY Prevention of venous thromboembolism INR 2.0 to 3.0 In patients with heart disease: Atrial fibrillation INR 2.0 to 3.0 Valvular heart disease INR 2.0 to 3.0 Tissue heart valves INR 2.0 to 3.0 Mechanical prosthetic valves INR 2.5 to 3.5 Prevention of recurrent PA INR 2.5 to 3.5 Maureen LERMA LAB BLOOD ORDERABLES Final Res ult Performing Organization Address City/[facility] Co de Phone Number [facility] [address] [place] [address] * (ABNORMAL) Basic metabolic panel (10/16/2025 4:18 PM EST) Only the most recent of12 resultswithin the time period is included. Glucose, Plasma 242(H) 74 - 99 mg/dL 10/16/2025 5:16 PM EST [facility] BUN, Plasma 74(H) 8 - 23 mg/dL 10/16/2025 5:16 PM EST [facility] Creatinine, Plasma 2.91(H) 0.60 - 1.10 mg/dL 10/16/2025 5:16 PM EST [facility] BUN/Creatinine Ratio 25 10/16/2025 5:16 PM EST [facility] Sodium, Plasma 132(L) 136 - 145 mmol/L 10/16/2025 5:16 PM EST [facility] Potassium, Plasma 3.8 3.6 - 4.9 mmol/L 10/16/2025 5:16 PM EST [facility] Chloride, Plasma 103 97 - 107 mmol/L 10/16/2025 5:16 PM EST [facility] CO2, Plasma 14(L) 22 - 29 mmol/L 10/16/2025 5:16 PM EST [facility] Anion Gap 15 6 - 16 mmol/L 10/16/2025 5:16 PM EST [facility] Total Calcium, Plasma 8.1(L) 8.9 - 10.2 mg/dL 10/16/2025 5:16 PM EST [facility] eGFRcr 17.6 mL/min/1.7 3m*2 10/16/2025 5:16 PM EST [facility] Comment:Reported eGFRcr in m L/min/1.73m2 is based the CKD-EPI 2020 equation that does not use a race coefficient. Blood Venous blood specimen / Unknown Venipuncture / Unknown 10/16/2025 4:18 PM EST 10/16/2025 4:27 PM EST us Deric Johnson MD LAB BLOOD ORDERABLES Final Resul t [facility] [address] [place] [address] * (ABNORMAL) Blood gas panel, venous (10/16/2025 2:51 PM EST) Only the most recent of3 resultswithin the time period is included. pH, Venous 7.33 7.32 - 7.43 LAB HEMATOLOGY METHOD 10/16/2025 3:13 PM EST [facility] pCO2, Venous 35(L) 37 - 52 mmHg LAB HEMATOLOGY METHOD 10/16/2025 3:13 PM EST [facility] pO2, Venous 51(H) 25 - 40 mmHg LAB HEMATOLOGY METHOD 10/16/2025 3:13 PM EST [facility] SO2, Measured, Venous 82(H) 65 - 80 % LAB HEMATOLOGY METHOD 10/16/2025 3:13 PM EST [facility] Base Excess, Venous -7.0(L) -2.0 - 3.0 mmol/L LAB HEMATOLOGY METHOD 10/16/2025 3:13 PM EST [facility] Bicarbonate, Calculated, Venous 18(L) 22 - 26 mmol/L LAB HEMATOLOGY METHOD 10/16/2025 3:13 PM EST [facility] Hematocrit, Whole Blood 32.8(L) 34.0 - 45.0 % LAB HEMATOLOGY METHOD 10/16/2025 3:13 PM EST [facility] Sodium, Whole Blood 137 136 - 145 mmol/L LAB HEMATOLOGY METHOD 10/16/2025 3:13 PM EST [facility] Potassium, Whole Blood 3.4(L) 3.6 - 4.9 mmol/L LAB HEMATOLOGY METHOD 10/16/2025 3:13 PM EST [facility] Chloride, Whole Blood 108(H) 97 - 107 mmol/L LAB HEMATOLOGY METHOD 10/16/2025 3:13 PM EST [facility] Glucose, Whole Blood 210(H) 74 - 99 mg/dL LAB HEMATOLOGY METHOD 10/16/2025 3:13 PM EST [facility] Lactate, Venous, Whole Blood 2.3(H) 0.5 - 2.2 mmol/L LAB HEMATOLOGY METHOD 10/16/2025 3:13 PM EST [facility] Ionized Calcium, Whole Blood 4.5(L) 4.6 - 5.1 mg/dL LAB HEMATOLOGY METHOD 10/16/2025 3:13 PM EST [facility] Blood Venous blood specimen / Unknown Venipuncture / Unknown 10/16/2025 2:51 PM EST 10/16/2025 2:54 PM EST us Emma Castle SUPERVISOR GRINDING, DNP LAB BLOOD ORDERABLE S Final Result [facility] [address] [place] [address] * (ABNORMAL) Ionized calcium, whole blood (10/16/2025 4:27 AM EST) Only the most recent of7 resultswithin the time period is included. Ionized Calcium, Whole Blood 4.5(L) 4.6 - 5.1 mg/dL LAB HEMATOLOGY METHOD 10/16/2025 4:36 AM EST [facility] Blood Venous blood specimen / Unknown Venipuncture / Unknown 10/16/2025 4:27 AM EST 10/16/2025 4:32 AM EST us Amol Sen APRN LAB BLOOD ORDERABLES Final Result Performing Organization Address City/State/[facility] Co de Phone Number [facility] [address] [place] [id number] * IN CRITICAL CARE, E/M 30-74 MINUTES (10/15/2025 2:44 PM EST) Narrative Deric Johnson MD - 10/15/2025 2:44 PM EST Deric Johnson MD 10/16/2025 8:24 AM Critical Care Performed by: Amol Sen APRN Authorized by: Amol Sen APRN Critical care provider statement: Critical care time (minutes): 30 Critical care time was exclusive of: Separately billable procedures and treating other patients Critical care was time spent personally by me on the following activities: Development of treatment plan with patient or surrogate, evaluation of patient's response to treatment, examination of patient, obtaining history from patient or surrogate, ordering and review of laboratory studies, ordering and performing treatments and interventions and review of old charts Comments: The patient is critically ill with: hypotension and bradycardia requiring titration of midodrine dosing. Thus far, I have spent the above referenced minutes, devoted solely to this patient managing life/organ supporting interventions that required physical assessment. This includes time spent making adjustments in ventilator settings, reviewing and adjusting antibiotics and all medications, discussion of patient with consultants and other care providers as well as updating patient and/or family (if patient by virtue of his/her condition is unable to participate in decision making). This does not include time spent performing separately billed procedures. Time is not concurrent with that of other providers. us Amol Sen APRN IN CLINIC/BEDSIDE ORDERABL ES Final Result * IN CRITICAL CARE, E/M 30-74 MINUTES (10/14/2025 2:42 PM EST) Deric Brice MD - 10/14/2025 2:42 PM EST Deric Johnson MD 10/15/2025 8:09 AM Critical Care Performed by: Amol Sen APRN Authorized by: Amol Sen APRN Critical care provider statement: Critical care time (minutes): 30 Critical care time was exclusive of: Separately billable procedures and treating other patients Critical care was time spent personally by me on the following activities: Development of treatment plan with patient or surrogate, evaluation of patient's response to treatment, examination of patient, obtaining history from patient or surrogate, ordering and review of laboratory studies, ordering and performing treatments and interventions and review of old charts Comments: The patient is critically ill with: shock requiring vasopressor. Thus far, I have spent the above referenced minutes, devoted solely to this patient managing life/organ supporting interventions that required physical assessment. This includes time spent making adjustments in ventilator settings, reviewing and adjusting antibiotics and all medications, discussion of patient with consultants and other care providers as well as updating patient and/or family (if patient by virtue of his/her condition is unable to participate in decision making). This does not include time spent performing separately billed procedures. Time is not concurrent with that of other providers. Amol Sen APRN IN CLINIC/BEDSIDE ORDERABL ES Final Result * IN CRITICAL CARE, E/M 30-74 MINUTES (10/13/2025 3:13 PM EST) Dejuan Rose MD - 10/13/2025 3:13 PM EST Dejuan Cabrera MD 10/13/2025 5:55 PM Critical Care Performed by: Amol Sen APRN Authorized by: Amol Sen APRN Critical care provider statement: Critical care time (minutes): 35 Critical care time was exclusive of: Separately billable procedures and treating other patients Critical care was time spent personally by me on the following activities: Development of treatment plan with patient or surrogate, evaluation of patient's response to treatment, examination of patient, obtaining history from patient or surrogate, ordering and review of laboratory studies, ordering and performing treatments and interventions and review of old charts Comments: The patient is critically ill with: shock requiring vasopressors. Thus far, I have spent the above referenced minutes, devoted solely to this patient managing life/organ supporting interventions that required physical assessment. This includes time spent making adjustments in ventilator settings, reviewing and adjusting antibiotics and all medications, discussion of patient with consultants and other care providers as well as updating patient and/or family (if patient by virtue of his/her condition is unable to participate in decision making). This does not include time spent performing separately billed procedures. Time is not concurrent with that of other providers. us Amol Sen APRN IN CLINIC/BEDSIDE ORDERABL ES Final Result * (ABNORMAL) Potassium (10/13/2025 6:14 AM EST) Potassium, Plasma 3.3(L) 3.6 - 4.9 mmol/L 10/13/2025 6:47 AM EST [facility] Blood Venous blood specimen / Unknown Venipuncture / Unknown 10/13/2025 6:14 AM EST 10/13/2025 6:34 AM EST Angelina LERMA LAB BLOOD ORDERABLES Final Re sult [facility] [address] [place] [address] * IN CRITICAL CARE, E/M 30-74 MINUTES (10/12/2025 2:06 PM EST) Narrative Dejuan Cabrera MD - 10/12/2025 2:06 PM EST Dejuan Cabrera MD 10/12/2025 5:42 PM Critical Care Performed by: Amol Sen APRN Authorized by: Amol Sen APRN Critical care provider statement: Critical care time (minutes): 35 Critical care time was exclusive of: Separately billable procedures and treating other patients Critical care was time spent personally by me on the following activities: Development of treatment plan with patient or surrogate, evaluation of patient's response to treatment, examination of patient, obtaining history from patient or surrogate, ordering and review of laboratory studies, ordering and performing treatments and interventions and review of old charts Comments: The patient is critically ill with: shock requiring vasopressors. Thus far, I have spent the above referenced minutes, devoted solely to this patient managing life/organ supporting interventions that required physical assessment. This includes time spent making adjustments in ventilator settings, reviewing and adjusting antibiotics and all medications, discussion of patient with consultants and other care providers as well as updating patient and/or family (if patient by virtue of his/her condition is unable to participate in decision making). This does not include time spent performing separately billed procedures. Time is not concurrent with that of other providers. Amol Villalta Mckinley SUPERVISOR GRINDING IN CLINIC/BEDSIDE ORDERABL ES Final Result * Beta Glucan (Fungitel), Serum (10/12/2025 12:15 PM EST) Beta Glucan (Fungitell) 72 <80 pg/mL 10/15/2025 2:59 PM EST [facility] (BEAKER) Comment: Interpretation: The Fungitell assay does not detect certain fungal species such as the genus Cryptococcus (Alireza et al. 1991) which produces very low levels of (1-3)-Smtm-E-Prahcq. The assay also does not detect the Zygomycetes such as Absidia, Mucor and Rhizopus (Nav et al. 1994) which are not known to produce (1-3)-Rjqp-W-Gfowwf. In addition, the yeast phase of Blastomyces dermatitidis produces little (1-3)-Tinn-X-Ofenae and may not be detected by the assay (Anaid et al. 2007). Reference Range: Less than 60 pg/mL. Glucan values of less than 60 pg/mL are interpreted as negative. Glucan values of 60 to 79 pg/mL are interpreted as indeterminate, and suggest a possible fungal infection. Additional sampling and testing of sera is required to interpret the results. Glucan values of greater than or equal to 80 pg/mL are interpreted as positive. Due to the potential for environmental contamination when transferred to pour-off tubes, which can lead to false positive results, interpret positive results from samples provided in pour-off tubes with caution. Results should be used in conjunction with clinical findings, and should not form the sole basis for a diagnosis or treatment decision. The Fungitell test is approved or cleared for in vitro diagnostic use by the U.[place] Food and Drug Administration. Modifications to the approved package insert have been made and the performance characteristics for these modifications were determined by [employer]. If sample result is greater than 500 pg/mL, physician may order a titer of the sample. Please contact [employer] if you would like to order a retest of this sample to obtain an actual value. Samples are held for 1 week after initial testing date. Testing Performed at: [facility] [address] [place] [address], [address] [place] [address] Senior Data Modeler: Mikey Navarro, PhD BCLRachael (ABB) CLIA # [id number] FLAG Interpretation: A = Abnormal, H = High, L = Low Blood Arterial blood specimen / Unknown Arterial Line / Unknown 10/12/2025 12:15 PM EST 10/12/2025 12:42 PM EST Narrative VIRACOR (JOHNY) - 10/15/2025 2:59 PM EST Release to patient in [facility]->Immediate Amol Sen SUPERVISOR GRINDING LAB BLOOD ORDERABLES Final Result REACOR (JOHNY) * Microbiology Frequency Override (10/11/2025 12:01 PM EST) [facility] Microbiology Frequency Override Test Comment MRSA Nares PCR 10/15/2025 1:04 PM EST [facility] Swab Nasal structure / Unknown Non-blood Collection / Unknown 10/11/2025 12:01 PM EST 10/11/2025 12:31 PM EST Luis Carranza SUPERVISOR GRINDING, DNP LAB MICROBIOLOGY - GEN ERAL ORDERABLES Final Result [facility] [address] [facility] [place] [address] * Methicillin Resistant Staphylococcus aureus (MRSA) by PCR (10/11/2025 12:00 PM EST) Only the most recent of2 resultswithin the time period is included. [facility] Methicillin Resistant Staphylococcus aureus (MRSA) by PCR Not Detected Not Detected 10/11/2025 5:02 PM EST [facility] Swab Both anterior nares / Unknown Non-blood Collection / Unknown 10/11/2025 12:00 PM EST 10/11/2025 3:[address] [facility] - 10/11/2025 5:02 PM EST This test is FDA approved for use with nares swab specimens using the eSwabs. This test is used for clinical purposes. It should not be regarded as investigational or for research. This laboratory is certified under the Clinical Laboratory improvement Amendments of 1988 (CLIA-88 as qualified to perform high complexity clinical laboratory testing. us Dejuan Cabrera MD LAB MICROBIOLOGY - GENERAL OMAHALoyd CATES Final Result [facility] [address] [place] [address] * IN CRITICAL CARE, E/M 30-74 MINUTES (10/11/2025 10:00 AM EST) Narrative Dejuan Cabrera MD - 10/11/2025 10:00 AM EST Dejuan Cabrera MD 10/11/2025 6:00 PM Critical Care Performed by: Luis Carranza APRN, DNP Authorized by: Luis Carranza APRN, DNP Critical care provider statement: Critical care time (minutes): 30 Critical care time was exclusive of: Separately billable procedures and treating other patients and teaching time Critical care was time spent personally by me on the following activities: Development of treatment plan with patient or surrogate, discussions with consultants, evaluation of patient's response to treatment, examination of patient, obtaining history from patient or surrogate, ordering and performing treatments and interventions, ordering and review of laboratory studies, ordering and review of radiographic studies and review of old charts Comments: This patient is critically ill with shock requiring vasopressors and IVF boluses to maintain vital organ perfusion. Thus far, I have spent the above referenced minutes, devoted solely to this patient managing life/organ supporting interventions that required physical assessment. This includes time spent making adjustments in vasopressor medications and IV fluid administration, reviewing and adjusting antibiotics and all medications, discussion of patient with consultants and other care providers as well as updating patient and/or family (if patient by virtue of his/her condition is unable to participate in decision making). This does not include time spent performing separately billed procedures. Time is not concurrent with that of other providers. Luis Carranza APRN, DNP IN CLINIC/BEDSIDE [facility] CAT[facility] Final Result * ECHO, ADULT TRANSTHORACIC COMPLETE (10/11/2025 8:57 AM EST) BSA 1.92 m2 NASRIN ISCV Height 165.0 NASRIN ISCV Weight 85.0 NASRIN ISCV LVIDd 47 mm NASRIN ISCV LVIDs 32 mm NASRIN ISCV IVSd 11 mm NASRIN ISCV LVPWd 11 mm NASRIN ISCV LV MASS(C)D 187 g NASRIN ISCV [facility] CV ECHO LV MASS INDEX 97 g/m2 NASRIN ISCV LV RWT 0.47 mm ANSRIN ISCV LV EDV(MOD-4ch) 115 mL NASRIN ISCV LV ESV(MOD4ch) 35 mL NASRIN ISCV EF(MOD-sp4) 70 % NASRIN ISCV LV EDV(MOD-2ch) 64 mL NASRIN ISCV LV ESV(MOD2ch) 21 mL NASRIN ISCV EF(MOD-sp2) 67 % NASRIN ISCV EDV(MOD-bp) 90 mL NASRIN ISCV ESV(MOD-bp) 28 mL NASRIN ISCV EF(MOD-bp) 69 % NASRIN ISCV LVOT diam 20 mm NASRIN ISCV LVOT AREA 3.1 cm2 NASRIN ISCV LV V1 VTI 25.8 cm NASRIN ISCV SV(LVOT) 81 mL NASRIN ISCV MV E Vmax 90.4 cm/s NASRIN ISCV MV A Vmax 95.5 cm/s NASRIN ISCV MV E/A 0.9 cm/s NASRIN ISCV TR Vmax 224.0 cm/s NASRIN ISCV LA dimension 40 mm NASRIN ISCV TAPSE 20 mm NASRIN ISCV TR Max PG 20 mmHG NASRIN ISCV PA acc time 170 msec NASRIN ISCV mean PAP 3 mmHg NASRIN ISCV LV V1 Vmax 111.0 cm/s NASRIN ISCV Ao V2 VTI 40.8 cm NASRIN ISCV Ao mean PG 8 mmHg NASRIN ISCV Ao V2 Vmax 189.3 cm/s NASRIN ISCV Ao max PG 14 mmHg NASRIN ISCV AV VTI Index 0.63 NASRIN ISCV THANIA(I,D) 2.0 cm2 NASRIN ISCV THANIA(VTI)/BSA_ph l 1.0 cm2/m2 NASRIN ISCV MV dec time 230 ms NASRIN ISCV MV P1/2t 67 ms NASRIN ISCV MVA(P1/2t) 3.3 cm2 NASRIN ISCV Ao Root Diam 35 mm NASRIN ISCV PA IN(ACCEL) 3.8 mmHg NASRIN ISCV LV mean PG 3.0 mmHG NASRIN ISCV LV V1 mean 73.4 cm/sec NASRIN ISCV LV max PG 4.9 mmHg NASRIN ISCV LVLs ap2 6.1 mm NASRIN ISCV AV-pr VR 0.6 NASRIN ISCV Ao V2 mean 125.3 cm/s NASRIN ISCV Asc Ao Diam 39 mm NASRIN ISCV RVSP 28 mmHg NASRIN ISCV RAP systole 8 mmHg NASRIN ISCV Anatomical Region Laterality Modality Echocardiography Narrative 10/11/2025 12:28 PM EST Left Ventricle: The left ventricle is normal size. There is normal left ventricular myocardial thickness and mass. The LVEF as measured by biplane volume is 69%. The left ventricular wall motion is normal. Right Ventricle: The right ventricle is normal in size. The right ventricular systolic function is normal. Aortic Valve: The aortic valve appears to be trileaflet. There is calcification of the aortic valve leaflets. There is mild aortic valve regurgitation. There is no hemodynamically significant valvular aortic stenosis. Compared to the most recently available prior study, and allowing for differences in image quality and technique, there is no significant interval change noted. Left Ventricle The left ventricle is normal size. There is normal left ventricular myocardial thickness and mass. The LVEF as measured by biplane volume is 69%. The diastolic function is normal. The left ventricular wall motion is normal. Right Ventricle The right ventricle is normal in size. The right ventricular systolic function is normal. Right ventricular systolic pressure is normal (<35mmHg). Left Atrium The left atrial size is normal. The interatrial septum is intact with no evidence for an atrial septal defect. Right Atrium The right atrial size is normal. IVC/SVC The IVC was not well visualized, and an assumed pressure of 8mmHg was used for calculations. Mitral Valve The leaflets appear thickened. There is mild posterior mitral annular calcification. There is trace mitral regurgitation. There is no mitral stenosis. Tricuspid Valve The tricuspid valve is normal in appearance. There is trace tricuspid regurgitation. There is no tricuspid stenosis. Aortic Valve The aortic valve appears to be trileaflet. There is calcification of the aortic valve leaflets. There is mild aortic valve regurgitation. There is no hemodynamically significant valvular aortic stenosis. Pulmonic Valve The pulmonic valve was not well visualized. There is no pulmonic regurgitation. There is no pulmonic stenosis. Pericardium No pericardial effusion. Great Vessels The aortic root is normal in size. The sinus of Valsalva (aortic root) diameter is 35 mm by leading edge to leading edge method. In the maximally visualized portion, the ascending aorta appears mildly dilated. The ascending aorta diameter is 39 mm. The main pulmonary artery is not well visualized. Study Details A complete transthoracic echocardiogram using two-dimensional (2D), m-mode, color and spectral flow Doppler imaging was performed. During the study the apical, parasternal, subcostal and suprasternal view was captured. Overall the study quality was adequate. Height: 165.0 cm. Weight: 85.0 kg. BSA: 1.92 m2. Study Recommendation Compared to the most recently available prior study, and allowing for differences in image quality and technique, there is no significant interval change noted. us Aurelio Ponce APRN CV ECHO PROCEDURES Final Re sult * (ABNORMAL) Glucose, Plasma (10/11/2025 3:45 AM EST) Pathologist [facility] Glucose, Plasma 410(H) 74 - 99 mg/dL 10/11/2025 4:26 AM EST [facility] Blood Venous blood specimen / Unknown Venipuncture / Unknown 10/11/2025 3:45 AM EST 10/11/2025 3:49 AM EST Aurelio Ponce APRN LAB BLOOD ORDERABLES Final Result [facility] [address] [place] [address] * Streptococcus pneumoniae and Legionella Urinary Antigen (10/11/2025 3:31 AM EST) Pathologist [facility] Legionella pneumophila serogroup 1 Antigen Result (Urine) Negative Negative 10/11/2025 11:24 AM EST [facility] Streptococcus pneumoniae Antigen Result (Urine) Negative Negative 10/11/2025 11:24 AM EST [facility] Urine Urine specimen obtained by clean catch procedure / Unknown Non-blood Collection / Unknown 10/11/2025 3:31 AM EST 10/11/2025 3:56 AM EST Aurelio Kris SUPERVISOR GRINDING LAB MICROBIOLOGY - GENERAL ORDERABLES Final Result Performing Organization Address City/[facility] Co de Phone Number [facility] [address] [place] [address] * Sodium, Random, Urine (10/11/2025 3:31 AM EST) Sodium, Urine 26 mmol/L 10/11/2025 4:24 AM EST [facility] Urine Urine specimen obtained by clean catch procedure / Unknown Non-blood Collection / Unknown 10/11/2025 3:31 AM EST 10/11/2025 3:56 AM EST Aurelio Ponce [facility] URINE ORDERABLES Final Result Performing Organization Address [facility] Phone Number [facility] [address] [place] [address] * Creatinine, Random, Urine (10/11/2025 3:31 AM EST) Creatinine, Urine 95 mg/dL 10/11/2025 4:24 AM EST [facility] Urine Urine specimen obtained by clean catch procedure / Unknown Non-blood Collection / Unknown 10/11/2025 3:31 AM EST 10/11/2025 3:56 AM EST [facility] [employer] [facility] URINE ORDERABLES Final Result Performing Organization Address [facility] Phone Number [facility] [address] [place] [address] * (ABNORMAL) Comprehensive Urine Drug Screening, Qualitative Assay, >= 27 Drug Classes (53:31 AM EST) Only the most recent of2 resultswithin the time period is included. Acetaminophen Positive(A) Negative 10/14/2025 1:29 PM EST [facility] Alprazolam Negative Negative 10/14/2025 1:29 PM EST [facility] Amantadine Negative Negative 10/14/2025 1:29 PM EST [facility] Amitriptyline Negative Negative 10/14/2025 1:29 PM EST [facility] Amphetamine Negative Negative 10/14/2025 1:29 PM EST [facility] Atenolol Negative Negative 10/14/2025 1:29 PM EST [facility] Benzoylecgonine Negative Negative 1:[address] [facility] Bisoprolol Negative Negative 10/14/2025 1:[address] [facility] Bupropion Negative Negative 10/14/2025 1:[address] [facility] Butalbital Negative Negative 10/14/2025 1:[address] [facility] Carbamazepine Negative Negative 10/14/2025 1:[address] [facility] Carisoprodol Negative Negative 10/14/2025 1:[address] [facility] Chlorpheniramine Negative Negative 10/14/20 1:[address] [facility] Citalopram Negative Negative 10/14/2025 1:[address] [facility] Clindamycin Negative Negative 10/14/2025 1:[address] [facility] Clonidine Negative Negative 10/14/2025 1:[address] [facility] Clopidogrel / Ticlopidine Negative Negative 10/14/2025 1:[address] [facility] Cocaethylene Negative Negative 10/14/2025 1:[address] [facility] Cocaine Negative Negative 10/14/2025 1:[address] [facility] Codeine Negative Negative 10/14/2025 1:[address] [facility] Cyclobenzaprine Negative Negative 1:29 PM EST [facility] Desvenlafaxine Negative Negative 10/14/2025 1:[address] [facility] Dextromethorphan Negative Negative 10/14/20 1:[address] [facility] Diazepam Negative Negative 10/14/2025 1:[address] [facility] Diltiazem Negative Negative 10/14/2025 1:[address] [facility] Diphenhydramine Negative Negative 1:29 PM EST [facility] Doxepine Negative Negative 10/14/2025 1:29 PM EST [facility] Doxylamine Negative Negative 10/14/2025 1:29 PM EST [facility] EDDP-Methadone metabolite Negative Negative 10/14/2025 1:29 PM EST [facility] Fentanyl Negative Negative 10/14/2025 1:29 PM EST [facility] Fluconazole Negative Negative 10/14/2025 1:29 PM EST [facility] Fluoxetine Negative Negative 10/14/2025 1:29 PM EST [facility] Guaifenesin Positive(A) Negative 10/14/2025 1:29 PM EST [facility] Haloperidol Negative Negative 10/14/2025 1:29 PM EST [facility] Heroin/6-SANA Negative Negative 10/14/2025 1:29 PM EST [facility] Hydrocodone Negative Negative 10/14/2025 1:29 PM EST [facility] Hydroxyzine / Cetirizine metabolite Positive(A) Negative 10/14/2025 1:29 PM EST [facility] Ibuprofen Positive(A) Negative 10/14/2025 1:29 PM EST [facility] Imipramine Negative Negative 10/14/2025 1:29 PM EST [facility] Ketamine Negative Negative 10/14/2025 1:29 PM EST [facility] Labetolol Negative Negative 10/14/2025 1:29 PM EST [facility] Lamotrigine Negative Negative 10/14/2025 1:29 PM EST [facility] Levetiracetam Negative Negative 10/14/2025 1:29 PM EST [facility] Lidocaine Positive(A) Negative 10/14/2025 1:29 PM EST [facility] MDA Negative Negative 10/14/2025 1:29 PM EST [facility] MDMA Negative Negative 10/14/2025 1:29 PM EST [facility] Memantine Negative Negative 10/14/2025 1:29 PM EST [facility] Meperidine Negative Negative 10/14/2025 1:29 PM EST [facility] Meprobamate Negative Negative 10/14/2025 1:29 PM EST [facility] Metaxalone Negative Negative 10/14/2025 1:29 PM EST [facility] Methamphetamine Negative Negative 1:29 PM EST [facility] Methocarbamol Positive(A) Negative 10/14/2025 1:29 PM EST [facility] Methylecgonine Negative Negative 10/14/2025 1:29 PM EST [facility] Metoclopramide Negative Negative 10/14/2025 1:29 PM EST [facility] Metoprolol Negative Negative 10/14/2025 1:29 PM EST [facility] Metronidazole Negative Negative 10/14/2025 1:29 PM EST [facility] Midazolam Negative Negative 10/14/2025 1:29 PM EST [facility] Midazolam Metabolite Negative Negative 10/14/2025 1:29 PM EST [facility] Mirtazapine Negative Negative 10/14/2025 1:29 PM EST [facility] Misc Test Result Negative Negative 10/14/20 1:29 PM EST [facility] Naproxen Negative Negative 10/14/2025 1:29 PM EST [facility] Nefazodone Negative Negative 10/14/2025 1:29 PM EST [facility] Norfentanyl Negative Negative 10/14/2025 1:29 PM EST [facility] Nortriptyline Negative Negative 10/14/2025 1:29 PM EST [facility] Ordanstron Negative Negative 10/14/2025 1:29 PM EST [facility] Oxcarbazepine Negative Negative 10/14/2025 1:29 PM EST [facility] Oxycodone Negative Negative 10/14/2025 1:29 PM EST [facility] Paroxethine Negative Negative 10/14/2025 1:29 PM EST [facility] Phenobarbital Negative Negative 10/14/2025 1:29 PM EST [facility] Phentermine Negative Negative 10/14/2025 1:29 PM EST [facility] Phenytoin Negative Negative 10/14/2025 1:29 PM EST [facility] Primidone Negative Negative 10/14/2025 1:29 PM EST [facility] Promethazine Negative Negative 10/14/2025 1:29 PM EST [facility] Propofol Negative Negative 10/14/2025 1:29 PM EST [facility] Propranolol Negative Negative 10/14/2025 1:29 PM EST [facility] Quetiapine Negative Negative 10/14/2025 1:29 PM EST [facility] Quinine Negative Negative 10/14/2025 1:29 PM EST [facility] Rantidine Negative Negative 10/14/2025 1:29 PM EST [facility] Sertraline Positive(A) Negative 10/14/2025 1:29 PM EST [facility] Spironolactone Negative Negative 10/14/2025 1:29 PM EST [facility] Tizanidine Negative Negative 10/14/2025 1:29 PM EST [facility] Topiramate Negative Negative 10/14/2025 1:29 PM EST [facility] Tramadol Negative Negative 10/14/2025 1:29 PM EST [facility] Trazadone/ Trazadone metabolite Positive(A) Negative 10/14/2025 1:29 PM EST [facility] Trimethoprim Negative Negative 10/14/2025 1:29 PM EST [facility] Valproic Acid Negative Negative 10/14/2025 1:29 PM EST [facility] Venlafaxine Negative Negative 10/14/2025 1:29 PM EST [facility] Verapamil Negative Negative 10/14/2025 1:29 PM EST [facility] Zolpidem Negative Negative 10/14/2025 1:29 PM EST [facility] Xylazine Negative Negative 10/14/2025 1:29 PM EST [facility] Urine Urine specimen obtained by clean catch procedure / Unknown Non-blood Collection / Unknown 10/11/2025 3:31 AM EST 10/11/2025 3:57 AM EST us Aurelio Ponce SUPERVISOR [employer]IND[employer] LAB URINE ORDERABLES Final Result [facility] [address] [facility] [place] [address] * Tommy auris Surveillance by PCR (10/11/2025 2:11 AM EST) Tommy auris PCR Result Not Detected Not Detected 10/12/2025 10:31 AM EST [facility] Swab (Axilla and Groin) Non-blood Collection / Unknown 10/11/2025 2:11 AM EST 10/11/2025 2:23 AM EST Narrative [facility] - 10/12/2025 10:31 AM EST This PCR assay was developed and its performance characteristics determined by [facility] as appropriate for clinical purposes. This assay has not been cleared or approved by the FDA, but is performed in a CLIA regulated laboratory that is qualified to perform high-complexity testing. us Aurelio Coreas [employer] [facility] LAB MICROBIOLOGY - GENERAL ORDERABLES Final Result [facility] [address] [place] [address] * SARS CoV-2/COVID-19 by PCR (10/11/2025 2:11 AM EST) SARS CoV-2/COVID-1 9 RNA PCR Result Not Detected Not Detected 10/11/2025 4:56 AM EST [facility] Swab Nasopharyngeal structure / Unknown Non-blood Collection / Unknown 10/11/2025 2:11 AM EST 10/11/2025 2:23 AM EST Narrative [facility] - 10/11/2025 4:56 AM EST This test is FDA approved for use with nasopharyngeal specimens in [employer] (VTM). This test is used for clinical purposes. It should not be regarded as investigational or for research. This laboratory is certified under the Clinical Laboratory improvement Amendments of 1988 (CLIA-88 as qualified to perform high complexity clinical laboratory testing. This test was performed on the Xpert Xpress SARS CoV-2 Plus assay test, a PCR- based method. Negative results should be considered presumptive and do not preclude current or future infection obtained through community transmission or other exposures. Negative results must be considered in the context of an individual's recent exposures, history, presence of clinical signs and symptoms consistent with COVID-19. us Aurelio Ponce APRN LAB MICROBIOLOGY - GENERAL ORDERABLES Final Result [facility] [address] [place] [address] * Nasopharyngeal Respiratory Panel (10/11/2025 2:11 AM EST) Nasopharyngeal Respiratory PCR Interpretation Not Detected for all analytes Not Detected for all analytes 10/11/2025 6:01 AM EST [facility] Swab Nasopharyngeal structure / Unknown Non-blood Collection / Unknown 10/11/2025 2:11 AM EST 10/11/2025 2:23 AM EST Narrative [facility] - 10/11/2025 6:01 AM EST This assay can detect Adenovirus, Coronavirus, Human Metapneumovirus, Human Rhino/Enterovirus, Influenza A, Influenza A H1, Influenza A H1 2009, Influenza A H3, Influenza B, Parainfluenza Virus 1, Parainfluenza Virus 2, Parainfluenza Virus 3, Parainfluenza Virus 4, Respiratory Syncytial Virus A, Respiratory Syncytial Virus B, Chlamydia pneumoniae, and Mycoplasma pneumoniae. Note: This assay does NOT detect SARS/CoV, novel Coronavirus 2019-nCoV, Bordetella pertussis or Bordetella parapertussis. Nasopharyngeal Respiratory PCR Panel is performed using the [employer] instrument. This test is FDA approved for use with Nasopharyngeal swabs only. This test is used for clinical purposes. It should not be regarded as investigational or for research. The [facility] is certified under the Clinical Laboratory Improvement Amendments of 1988 (CLIA-88) as qualified to perform high complexity clinical laboratory testing. Aurelio Coreas Kris [employer]PER[employer] LAB MICROBIOLOGY - GENERAL ORDERABLES Final Result [facility] [address] [place] [address] * Multi Drug Resistance Test (10/11/2025 2:11 AM EST) Only the most recent of2 resultswithin the time period is included. Culture No growth at day 1 10/12/2025 4:56 AM EST [facility] Swab (Nares and Iona Rectal) Non-blood Collection / Unknown 10/11/2025 2:11 AM EST 10/11/2025 2:23 AM EST Narrative [facility] - 10/12/2025 4:56 AM EST This test was developed and its performance characteristics determined by the [facility]. Although the media is FDA-approved, it is not FDA-approved for all specimen types submitted. The FDA has determined that such clearance or approval is not necessary. This test is used for surveillance purposes. It should not be regarded as investigational or for research. The [facility] is certified under the Clinical Laboratory Improvement Amendments of 1988 (CLIA-88) as qualified to perform high complexity clinical laboratory testing. [facility] LAB MICROBIOLOGY - GENERAL ORDERABLES Final Result Performing Organization Address [facility] Co de Phone Number [facility] [address] [place] [address] * Methicillin Resistant Staphylococcus aureus (MRSA) Culture (10/11/2025 2:11 AM EST) Culture No growth at day 1 10/12/2025 9:35 AM EST [facility] Swab Both anterior nares / Unknown Non-blood Collection / Unknown 10/11/2025 2:11 AM EST 10/11/2025 2:22 AM EST Narrative [facility] - 10/12/2025 9:35 AM EST This test was developed and its performance characteristics determined by the [facility]. Although the media is FDA-approved, it is not FDA-approved for all specimen types submitted. The FDA has determined that such clearance or approval is not necessary. This test is used for surveillance purposes. It should not be regarded as investigational or for research. The [facility] is certified under the Clinical Laboratory Improvement Amendments of 1988 (CLIA-88) as qualified to perform high complexity clinical laboratory testing. [facility] LAB MICROBIOLOGY - GENERAL ORDERABLES Final Result Performing Organization Address City/[facility]/ZIP Co de Phone Number [facility] [address] [place] [address] * IN ABDOM PARACENTESIS DX/THER W IMAGING GUIDANCE, HC ABDOMINAL PARACENTESIS DIAGNOSIS/THERAPY W IMAGING GUIDANCE (10/11/2025 1:06 AM EST) Anatomical Region Laterality Modality Other Narrative 10/11/2025 1:06 AM EST Aurelio Ponce APRN 10/11/2025 1:40 AM Paracentesis Performed by: Angelina Dinh PA Authorized by: Angelina Dinh PA Consent: Consent obtained: Verbal and written Consent given by: Patient Risks, benefits, and alternatives were discussed: yes Risks discussed: Bleeding, bowel perforation and infection [place] protocol: Procedure explained and questions answered to patient or proxy's satisfaction: yes Relevant documents present and verified: yes Test results available: yes Imaging studies available: yes Required blood products, implants, devices, and special equipment available: yes Site/side marked: yes Immediately prior to procedure, a time out was called: yes Patient identity confirmed: Verbally with patient, arm band and hospital-assigned identification number Pre-procedure details: Procedure purpose: Therapeutic Preparation: Patient was prepped and draped in usual sterile fashion Anesthesia: Anesthesia method: Local infiltration Local anesthetic: Lidocaine 1% w/o epi Procedure details: Needle gauge: 18 Ultrasound guidance: yes Puncture site: L lower quadrant Fluid removed amount: 5 liters Fluid appearance: Joanna Post-procedure details: Procedure completion: Tolerated well, no immediate complications Angelina LERMA IN CLINIC/BEDSIDE ORDERABLES Final Result * BILIRUBIN, TOTAL, BODY FLUID (SO) (10/11/2025 12:36 AM EST) Bilirubin, Total, Body Fluid 0.4 mg/dL 10/12/2025 11:45 PM EST [facility] Bilirubin, Total Fluid Source Peritoneal fl 10/12/2025 11:45 PM EST [facility] ([place]) Peritoneal Fluid Peritoneal cavity structure / Unknown Non-blood Collection / Unknown 10/11/2025 12:36 AM EST 10/11/2025 12:55 AM EST Narrative [facility] - 10/12/2025 11:45 PM EST INTERPRETIVE INFORMATION: Bilirubin, Total, Body Fluid For information on body fluid reference ranges and/or interpretive guidance visit [email or web address] This test was developed and its performance characteristics determined by [facility]. It has not been cleared or approved by the US Food and Drug Administration. This test was performed in a CLIA certified laboratory and is intended for clinical purposes. Performed By: [facility] [address] [place] [address] Carpet Journeyman: Tank Orona MD, PhD CLIA Number: [id number] [employer] SUPERVISOR [facility] LAB BODY FLUIDS AND STOOLS ORDERABLES Final Result Performing Organization Address [facility] Co de Phone Number [facility] ([facility]) [address] [place] [address] * LDH - Ascites (10/11/2025 12:29 AM EST) Only the most recent of2 resultswithin the time period is included. LDH, Fluid 38 U/L 10/11/2025 3:42 AM EST [facility] Ascites Peritoneal cavity structure / Unknown 10/11/2025 12:29 AM EST 10/11/2025 12:51 AM EST Narrative [facility] - 10/11/2025 3:42 AM EST No established reference interval. Results should be [...] for plasma; 3) Glucose < 50 mg/dL. [employer] SUPERVISOR GRINDING LAB BODY FLUIDS AND STOOLS ORDERABLES Final Result Performing Organization Address City/[facility]/ZIP Co de Phone Number [facility] [address] [place] [address] * Blood Culture (Aerobic/Anaerobet Set) (10/11/2025 12:15 AM EST) Only the most recent of2 resultswithin the time period is included. Culture No growth at day 5 10/16/2025 3:41 AM EST [facility] Blood Venous blood specimen / Unknown Venipuncture / Unknown 10/11/2025 12:15 AM EST 10/11/2025 12:24 AM EST us Aurelio Coreas Kris [facility] MICROBIOLOGY - GENERAL ORDERABLES Final Result [facility] [address] [place] [address] * Phosphatidylethanol (PEth), Whole Blood, Quantitative (10/10/2025 11:11 PM EST) PEth 16:0/18:2 (PLPEth) <10 ng/mL 10/13/2025 10:44 AM EST [facility] ([facility]) PEth 16:0/18:1 (POPEth) <10 ng/mL 10/13/2025 10:44 AM EST [facility] ([facility]) EER Peth See Note 10/13/2025 10:44 AM EST [facility] ([facility]) PEth Interpretation See Comment 10/13/2025 10:44 AM EST [facility] ([facility]) Blood Venous blood specimen / Unknown Venipuncture / Unknown 10/10/2025 11:11 PM EST 10/10/2025 11:20 PM EST Narrative [facility] ([facility]) - 10/13/2025 10:44 AM EST PEth 16:0/18:1 (POPEth) Less than 10 ng/mL............Not detected Less than 20 ng/mL............Abstinence or light alcohol consumption 20 - 200 ng/mL................Moderate alcohol consumption Greater than 200 ng/mL........Heavy alcohol consumption or chronic alcohol use (Reference: Phani Zepeda and Jaun Jeffers 2018 J. Forensic Sci) Reference ranges are not well established. Authorized individuals can access the [facility] Enhanced Report with an [facility] Connect account using the following link. Your local lab can assist you in obtaining the patient report if you don't have a Connect account. [email or web address] Phosphatidylethanol (PEth) is a group of phospholipids formed in the presence of ethanol, phospholipase D and phosphatidylcholine. PEth is known to be a direct alcohol biomarker. The predominant PEth homologues are PEth 16:0/18:1 (POPEth) and PEth 16:0/18:2 (PLPEth), which account for 37-46% and 26-28% of the total PEth homologues, respectively. PEth is incorporated into the phospholipid membrane of red blood cells and has a general half-life of 4-10 days and a window of detection of 2-4 weeks. However, the window of detection is longer in individuals who chronically or excessively consume alcohol. The limit of quantification is 10 ng/mL. Serial monitoring of PEth may be helpful in monitoring alcohol abstinence over time. PEth results should be interpreted in the context of the patient's clinical and behavioral history. Patients with advanced liver disease may have falsely elevated PEth concentrations (Radha SANDOVAL et al 2018, Alcoholism Clinical & Experimental Research). This test was developed and its performance characteristics determined by [facility]. It has not been cleared or approved by the U.S. Food and Drug Administration. This test was performed in a CLIA-certified laboratory and is intended for clinical purposes. Performed By: [facility] [address] [place] [address] Carpet Journeyman: Tank Orona MD, PhD CLIA Number: [id number] us Aurelio Ponce APRN LAB REF LAB BLOOD AND FLUID ORD Final Result Performing Organization Address [facility] Co de Phone Number [facility] ([facility]) [address] [place] [address] * (ABNORMAL) Lactate, venous (10/10/2025 11:11 PM EST) Lactate, Venous, Whole Blood 2.7(H) 0.5 - 2.2 mmol/L LAB HEMATOLOGY METHOD 10/10/2025 11:23 PM EST [facility] Blood Venous blood specimen / Unknown Venipuncture / Unknown 10/10/2025 11:11 PM EST 10/10/2025 11:20 PM EST us Aurelio Ponce APRN LAB BLOOD ORDERABLES Final Result Performing Organization Address City/[facility]/ZIP Co de Phone Number [facility] [address] [place] [address] * (ABNORMAL) Ionized calcium, serum (10/10/2025 11:11 PM EST) Ionized Calcium, Serum 4.4(L) 4.6 - 5.3 mg/dL LAB HEMATOLOGY METHOD 10/11/2025 12:03 AM EST [facility] Blood Venous blood specimen / Unknown Venipuncture / Unknown 10/10/2025 11:11 PM EST 10/10/2025 11:21 PM EST Aurelio Ponce SUPERVISOR GRINDING LAB BLOOD ORDERABLES Final Result Performing Organization Address City/[facility]/ZIP Co de Phone Number [facility] [address] [place] [address] * BETA HYDROXYBUTYRIC ACID (10/10/2025 11:11 PM EST) Beta-Hydroxybu tyric Acid, Plasma 0.0964 <=0.27 mmol/L 10/11/2025 3:29 AM EST [facility] Blood Venous blood specimen / Unknown Venipuncture / Unknown 10/10/2025 11:11 PM EST 10/10/2025 11:19 PM EST Angelina LERMA LAB BLOOD ORDERABLES Final Re sult Performing Organization Address City/[facility]/ZIP Co de Phone Number [facility] [address] [place] [address] * (ABNORMAL) Cystatin C (10/10/2025 11:11 PM EST) Cystatin C 3.01(H) 0.61 - 0.95 mg/L 10/11/2025 3:50 AM EST [facility] Blood Venous blood specimen / Unknown Venipuncture / Unknown 10/10/2025 11:11 PM EST 10/10/2025 11:19 PM EST us Aurelio Ponce SUPERVISOR [employer] LAB BLOOD ORDERABLES Final Result Performing Organization Address City/[facility]/ZIP Co de Phone Number [facility] [address] [place] [address] * Alcohol Profile Plasma ([place] Only) (10/10/2025 11:11 PM EST) Methanol Plasma <10 <10 mg/dL 5:43 AM EST [facility] Acetone Plasma <10 <10 mg/dL 10/11/2025 5:43 AM EST [facility] Isopropanol Plasma <10 <10 mg/dL 10/11/2025 5:43 AM EST [facility] Ethanol Plasma <10 <10 mg/dL 10/11/2025 5:43 AM EST [facility] Blood Venous blood specimen / Unknown Venipuncture / Unknown 10/10/2025 11:11 PM EST 10/10/2025 11:19 PM EST Narrative [facility] - 10/11/2025 5:43 AM EST Test performed by Gas Chromatography at the [facility]. This test was developed and its performance characteristics determined by [facility]. It has not been cleared or approved by the FDA.The laboratory is regulated under CLIA as qualified to perform high-complexity testing. This test is used for clinical purposes only. Aurelio Ponce APRN LAB BLOOD ORDERABLES Final Result [facility] [address] [place] [address] * (ABNORMAL) Procalcitonin, Plasma (10/10/2025 11:11 PM EST) Procalcitonin, Plasma 0.25(H) <0.09 ng/mL 10/10/2025 11:53 PM EST [facility] Blood Venous blood specimen / Unknown Venipuncture / Unknown 10/10/2025 11:11 PM EST 10/10/2025 11:19 PM EST Narrative [facility] - 10/10/2025 11:53 PM EST Procalcitonin concentrations in healthy individuals are <0.09 ng/mL. Published data support the following interpretive risk assessment: An elevated procalcitonin result does not always indicate sepsis. Various non-infectious conditions are known to increase procalcitonin. Results should be considered in the context of clinical symptoms and other laboratory tests. Procalcitonin >2.0 ng/mL: Concentrations >2.0 ng/mL on the first day of ICU admission are associated with a higher risk of progression to severe sepsis and/or septic shock. The change in PCT over time may help predict 28 day mortality risk. Please consult [email or web address] for more information. Test performed at [facility]. [employer] SUPERVISOR GRINDING LAB BLOOD ORDERABLES Final Result Performing Organization Address [facility] de Phone Number [facility] [address] [place] [address] * (ABNORMAL) Acetaminophen, Quantitative, Plasma (10/10/2025 11:11 PM EST) Pathologist [facility] Acetaminophen <5.0(L) 10.0 - 30.0 g/mL 10/10/2025 11:53 PM EST [facility] Blood Venous blood specimen / Unknown Venipuncture / Unknown 10/10/2025 11:11 PM EST 10/10/2025 11:19 PM EST Narrative [facility] - 10/10/2025 11:53 PM EST Therapeutic: 10 to 30 ug/mL Supratherapeutic: >35 ug/mL [employer] SUPERVISOR GRINDING LAB BLOOD ORDERABLES Final Result Performing Organization Address [facility] de Phone Number [facility] [address] [place] [address] * HIV 1 & 2 Antibody/Antigen Screen (10/10/2025 11:11 PM EST) Pathologist [facility] HIV 1 & 2 Antibody/Antigen Screen Non Reactive Non Reactive 10/11/2025 12:25 AM EST [facility] Comment:Screening for HIV 1 & 2 antibodies, and P24 antigen is NONREACTIVE. No confirmatory testing is required. Blood Venous blood specimen / Unknown Venipuncture / Unknown 10/10/2025 11:11 PM EST 10/10/2025 11:21 PM EST [employer] SUPERVISOR GRINDING LAB BLOOD ORDERABLES Final Result Performing Organization Address City/[facility] Co de Phone Number [facility] [address] [place] [address] * N-Terminal ProBNP, Plasma (10/10/2025 11:11 PM EST) Only the most recent of2 resultswithin the time period is included. N-Terminal, PROBNP, Plasma 553 0 - 899 pg/mL 10/10/2025 11:53 PM EST [facility] Blood Venous blood specimen / Unknown Venipuncture / Unknown 10/10/2025 11:11 PM EST 10/10/2025 11:19 PM EST us Aurelio Ponce APRN LAB BLOOD ORDERABLES Final Result Performing Organization Address [facility] de Phone Number [facility] [address] [place] [address] * Acute Hepatitis Panel (10/10/2025 11:11 PM EST) Pathologist [facility] Hepatitis B Surf Antigen Negative Negative 10/11/2025 5:41 PM EST [facility] Hepatitis C Antibody Negative Negative 10/11/2025 5:41 PM EST [facility] Hepatitis A Antibody IgM Negative Negative 10/11/2025 5:41 PM EST [facility] Hepatitis B Core Antibody IgM Negative Negative 10/11/2025 5:41 PM EST [facility] Blood Venous blood specimen / Unknown Venipuncture / Unknown 10/10/2025 11:11 PM EST 10/10/2025 11:21 PM EST us Aurelio Ponce APRN LAB BLOOD ORDERABLES Final Result Performing Organization Address City/[facility] Co de Phone Number [facility] [address] [place] [address] * (ABNORMAL) APTT (10/10/2025 11:11 PM EST) aPTT 40(H) 25 - 35 sec 10/10/2025 11:32 PM EST [facility] Blood Venous blood specimen / Unknown Venipuncture / Unknown 10/10/2025 11:11 PM EST 10/10/2025 11:20 PM EST Aurelio Ponce APRN LAB BLOOD ORDERABLES Final Result [facility] [address] [place] [address] * (ABNORMAL) CBC and Differential (10/10/2025 11:11 PM EST) Only the most recent of4 resultswithin the time period is included. WBC Count 5.57 3.70 - 10.30 10*3/uL LAB HEMATOLOGY METHOD 10/10/2025 11:23 PM EST [facility] RBC Count 3.17(L) 3.90 - 5.20 10*6/uL LAB HEMATOLOGY METHOD 10/10/2025 11:23 PM EST [facility] HGB 10.1(L) 11.2 - 15.7 g/dL LAB HEMATOLOGY METHOD 10/10/2025 11:23 PM EST [facility] HCT 29.5(L) 34.0 - 45.0 % LAB HEMATOLOGY METHOD 10/10/2025 11:23 PM EST [facility] Platelet Count 94(L) 155 - 369 10*3/uL LAB HEMATOLOGY METHOD 10/10/2025 11:23 PM EST [facility] MCV 93 79 - 98 fL LAB HEMATOLOGY METHOD 10/10/2025 11:23 PM EST [facility] MCH 31.9 26.0 - 32.0 pg LAB HEMATOLOGY METHOD 10/10/2025 11:23 PM EST [facility] MCHC 34.2 30.7 - 35.5 g/dL LAB HEMATOLOGY METHOD 10/10/2025 11:23 PM EST [facility] RDW 14.9(H) 11.5 - 14.5 % LAB HEMATOLOGY METHOD 10/10/2025 11:23 PM EST [facility] MPV 10.0 8.8 - 12.5 fL LAB HEMATOLOGY METHOD 10/10/2025 11:23 PM EST [facility] nRBC 0.0 <=0.0 per 100 WBCs LAB HEMATOLOGY METHOD 10/10/2025 11:23 PM EST [facility] Differential Type Automated LAB HEMATOLOGY METHOD 10/10/2025 11:23 PM EST [facility] Neutrophils % 61 % LAB HEMATOLOGY METHOD 10/10/2025 11:23 PM EST [facility] Lymphocytes % 17 % LAB HEMATOLOGY METHOD 10/10/2025 11:23 PM EST [facility] Monocytes % 16 % LAB HEMATOLOGY METHOD 10/10/2025 11:23 PM EST [facility] Eosinophils % 5 % LAB HEMATOLOGY METHOD 10/10/2025 11:23 PM EST [facility] Basophils % 1 % LAB HEMATOLOGY METHOD 10/10/2025 11:23 PM EST [facility] Immature Granulocytes % 0 % LAB HEMATOLOGY METHOD 10/10/2025 11:23 PM EST [facility] Neutrophils Absolute 3.39 1.60 - 6.10 10*3/uL LAB HEMATOLOGY METHOD 10/10/2025 11:23 PM EST [facility] Lymphocytes Absolute 0.97(L) 1.20 - 3.90 10*3/uL LAB HEMATOLOGY METHOD 10/10/2025 11:23 PM EST [facility] Monocytes Absolute 0.90 0.30 - 0.90 10*3/uL LAB HEMATOLOGY METHOD 10/10/2025 11:23 PM EST [facility] Eosinophils Absolute 0.25 0.00 - 0.50 10*3/uL LAB HEMATOLOGY METHOD 10/10/2025 11:23 PM EST [facility] Basophils Absolute 0.05 0.00 - 0.10 10*3/uL LAB HEMATOLOGY METHOD 10/10/2025 11:23 PM EST [facility] Immature Granulocytes Absolute 0.01 0.00 - 0.06 10*3/uL LAB HEMATOLOGY METHOD 10/10/2025 11:23 PM EST [facility] Blood Venous blood specimen / Unknown Venipuncture / Unknown 10/10/2025 11:11 PM EST 10/10/2025 11:20 PM EST Narrative [facility] - 10/10/2025 11:23 PM EST Therapeutic decision making should be based on absolute values, rather than percentages. us Aurelio B Bounds SUPERVISOR GRINDING LAB BLOOD ORDERABLES Final Result [facility] [address] [place] [address] * Thyroid Stimulating Hormone, Plasma (10/10/2025 11:11 PM EST) Thyroid Stimulating Hormone, Plasma 0.82 0.40 - 4.20 uIU/mL 10/10/2025 11:53 PM EST [facility] Blood Venous blood specimen / Unknown Venipuncture / Unknown 10/10/2025 11:11 PM EST 10/10/2025 11:19 PM EST us Aurelio Ponce SUPERVISOR GRINDING LAB BLOOD ORDERABLES Final Result Performing Organization Address [facility] Co de Phone Number [facility] [address] [place] [address] * Free T4, Plasma (10/10/2025 11:11 PM EST) Pathologist [facility] Free T4, Plasma 1.0 0.8 - 1.7 ng/dL 10/10/2025 11:53 PM EST [facility] Blood Venous blood specimen / Unknown Venipuncture / Unknown 10/10/2025 11:11 PM EST 10/10/2025 11:19 PM EST us Aurelio Ponce [facility] LAB BLOOD ORDERABLES Final Result Performing Organization Address [facility] de Phone Number [facility] [address] [place] [address] * (ABNORMAL) Protein, total (10/10/2025 11:11 PM EST) [facility] Total Protein 6.0(L) 6.3 - 7.9 g/dL 10/11/2025 1:29 AM EST [facility] Blood Venous blood specimen / Unknown Venipuncture / Unknown 10/10/2025 11:11 PM EST 10/10/2025 11:19 PM EST Aurelio Kris SUPERVISOR GRINDING LAB BLOOD ORDERABLES Final Result Performing Organization Address City/[facility] Co de Phone Number [facility] [address] [place] [address] * (ABNORMAL) Prealbumin, Plasma (10/10/2025 11:11 PM EST) Pathologist [facility] Prealbumin, Plasma 5.3(L) 20.0 - 41.0 mg/dL 10/11/2025 3:50 AM EST [facility] Blood Venous blood specimen / Unknown Venipuncture / Unknown 10/10/2025 11:11 PM EST 10/10/2025 11:19 PM EST [employer] SUPERVISOR GRINDING LAB BLOOD ORDERABLES Final Result Performing Organization Address [facility] de Phone Number [facility] [address] [place] [address] * (ABNORMAL) Lactate dehydrogenase (10/10/2025 11:11 PM EST) LDH, Plasma 261(H) 116 - 250 U/L 10/11/2025 2:53 AM EST [facility] Comment:Hemolyzed, result ma y be falsely increased. Blood Venous blood specimen / Unknown Venipuncture / Unknown 10/10/2025 11:11 PM EST 10/10/2025 11:19 PM EST [employer] SUPERVISOR GRINDING LAB BLOOD ORDERABLES Final Result Performing Organization Address [facility] Phone Number [facility] [address] [place] [address] * (ABNORMAL) Hemoglobin A1c (10/10/2025 11:11 PM EST) Hemoglobin A1c 6.0(H) <5.7 % 10/11/2025 1:20 PM EST [facility] Blood Venous blood specimen / Unknown Venipuncture / Unknown 10/10/2025 11:11 PM EST 10/10/2025 11:20 PM EST Narrative [facility] - 10/11/2025 1:20 PM EST [facility] Interpretive Data: Diagnosis of Diabetes: Diabetic > or = 6.5% Pre-diabetic 5.7 to 6.4% Non-diabetic < or = 5.6% Glycemic Targets for Type I and Type II Diabetics: Non- Adults <7.0% Adults <6.0% Children and Adolescents <7.5% Source: [place] [employer]. Standards of medical care in diabetes,2017. Diabetes Care.2017:40 (suppl 1):S1-S135. [employer] SUPERVISOR GRINDING LAB BLOOD ORDERABLES Final Result Performing Organization Address [facility] Co de Phone Number [facility] [address] [place] [address] * Cortisol, serum (10/10/2025 11:11 PM EST) Cortisol 1.70 Before 10am: 3.7 - 19.4. After 5pm: 2.9 - 17.3 ug/dL 10/11/2025 4:45 AM EST [facility] Comment:Testing performed on [employer], standardized against SNF Reference Standard concentration values assigned by LC-MS/MS and verified by BCR 192 and BCR 193 certified reference materials. Blood Venous blood specimen / Unknown Venipuncture / Unknown 10/10/2025 11:11 PM EST 10/10/2025 11:21 PM EST [facility] [employer] [facility] REF LAB BLOOD AND FLUID ORD Final Result Performing Organization Address City/[facility]/ZIP Co de Phone Number [facility] [address] [place] [address] * (ABNORMAL) Ammonia, Plasma (10/10/2025 11:11 PM EST) Only the most recent of2 resultswithin the time period is included. Ammonia 132(H) 11 - 51 umol/L 10/10/2025 11:44 PM EST [facility] Blood Venous blood specimen / Unknown Venipuncture / Unknown 10/10/2025 11:11 PM EST 10/10/2025 11:18 PM EST [facility] [employer] [facility] BLOOD ORDERABLES Final Result [facility] [address] [place] [address] * (ABNORMAL) Albumin, Plasma (10/10/2025 11:11 PM EST) Albumin, Plasma 2.7(L) 3.5 - 5.2 g/dL 10/11/2025 1:29 AM EST [facility] Blood Venous blood specimen / Unknown Venipuncture / Unknown 10/10/2025 11:11 PM EST 10/10/2025 11:19 PM EST Aurelio Coreas [employer] LAB BLOOD ORDERABLES Final Result Performing Organization Address [facility] Co de Phone Number [facility] [address] [place] [address] * Salicylate, Quantitative, Plasma (10/10/2025 11:11 PM EST) Salicylate, Quantitative, Plasma <1.0 <25 mg/dL mg/dL 10/10/2025 11:53 PM EST [facility] Blood Venous blood specimen / Unknown Venipuncture / Unknown 10/10/2025 11:11 PM EST 10/10/2025 11:19 PM EST Narrative [facility] - 10/10/2025 11:53 PM EST Therapeutic Range: <25 mg/dL Supratherapeutic Level: >30 mg/dL us Aurelio Ponce SUPER[employer] LAB BLOOD ORDERABLES Final Result Performing Organization Address [facility] de Phone Number [facility] [address] [place] [address] * ECG - RT (10/10/2025 11:02 PM EST) Only the most recent of2 resultswithin the time period is included. EKG DIAGNOSIS CLASS Abnormal MUSE ECG Ventricular Rate 64 BPM MUSE ECG Atrial Rate 64 BPM MUSE ECG IN Interval 136 ms MUSE ECG QRSD Interval 110 ms MUSE ECG QT Interval 418 ms MUSE ECG QTC Interval 431 ms MUSE ECG P [place] 70 degrees MUSE ECG R [place] -45 degrees MUSE ECG T Wave [place] 49 degrees MUSE ECG Diagnosis Sinus rhythm with premature supraventricular complexes MUSE ECG Diagnosis Left anterior fascicular block MUSE ECG Diagnosis Minimal voltage criteria for LVH, may be normal variant ( Emmanuel product ) MUSE ECG Diagnosis ST & T wave abnormality, consider lateral ischemia MUSE ECG Diagnosis MUSE ECG Diagnosis MUSE ECG Diagnosis Confirmed by Cecelia Leal ([id number]) on 10/11/2025 1:16:42 PM MUSE ECG 10/10/2025 11:0 2 PM EST 10/11/2025 1:16 PM EST Aurelio Infinite.ly SUPERVISOR GRINDING ECG ORDERABLES Final Resul t MUSE ECG * XR Chest 1 View - bedside (10/10/2025 10:58 PM EST) Only the most recent of8 resultswithin the time period is included. Anatomical Region Laterality Modality Chest Digital Radiogra phy Impressions 10/10/2025 11:15 PM EST Increased right lower lobe opacities with possible small right effusion. CRITICAL RESULT: No COMMUNICATION: Per this written report. Drafted by Adri Marie MD on 10/10/2025 11:14 PM Final report signed by Adri Marie MD on 10/10/2025 11:15 PM Narrative 10/10/2025 11:15 PM EST CLINICAL INDICATION: sepsis workup TECHNIQUE: XR CHEST 1 VIEW COMPARISON: 09/26/2025 FINDINGS: The cardiomediastinal silhouette is stable. Right IJ catheter tip overlies right atrium. Increased right infrahilar and lower lobe opacities and possible small right effusion. No change in appearance of the left lung. Procedure Note Adri Mraie MD - 10/10/2025 CLINICAL INDICATION: sepsis workup TECHNIQUE: XR CHEST 1 VIEW COMPARISON: 09/26/2025 FINDINGS: The cardiomediastinal silhouette is stable. Right IJ catheter tip overliesright atrium. Increased right infrahilar and lower lobe opacities andpossible small right effusion. No change in appearance of the left lung. IMPRESSION: Increased right lower lobe opacities with possible small right effusion. CRITICAL RESULT: No COMMUNICATION: Per this written report. Drafted by Adri Marie MD on 10/10/2025 11:14 PM Final report signed by Adri Marie MD on 10/10/2025 11:15 PM Aurelio Ponce APRN IMG XR PROCEDURES Final Res ult * IN INSERT CATH,ART,PERCUT,SHORTTERM, HC INSERT CATH,ART,PERCUT,SHORTTERM (10/10/2025 10:52 PM EST) Narrative Aurelio Ponce APRN - 10/10/2025 10:52 PM EST Aurelio Ponce APRN 10/10/2025 11:02 PM Arterial line Performed by: Angelina Dinh PA Authorized by: Angelina Dinh PA Consent: Consent obtained: Verbal and written Consent given by: Patient Risks, benefits, and alternatives were discussed: yes Risks discussed: Bleeding, infection and pain [place] protocol: Procedure explained and questions answered to patient or proxy's satisfaction: yes Relevant documents present and verified: yes Test results available: yes Imaging studies available: yes Required blood products, implants, devices, and special equipment available: yes Site/side marked: yes Immediately prior to procedure, a time out was called: yes Patient identity confirmed: Verbally with patient, arm band and hospital-assigned identification number Indications: Indications: hemodynamic monitoring Pre-procedure details: Skin preparation: Chlorhexidine Preparation: Patient was prepped and draped in sterile fashion Sedation: Sedation type: None Anesthesia: Anesthesia method: None Procedure details: Location: R radial Needle gauge: 20 G Placement technique: Seldinger and ultrasound guided Number of attempts: 1 Transducer: waveform confirmed Post-procedure details: Post-procedure: Sterile dressing applied, secured with tape and sutured Procedure completion: Tolerated well, no immediate complications Angelina LERMA IV THERAPY ORDERABLES Final R esult * IN INSERT NON-TUNNEL CV CATH, HC INSERT NON-TUNNEL CV CATH, CVC TRIPLE LUMEN (SMARTFORM LINK) (10/10/2025 10:51 PM EST) Narrative Aurelio Ponce APRN - 10/10/2025 10:51 PM EST Aurelio Ponce APRN 10/10/2025 10:53 PM Central Line Performed by: Aurelio Ponce APRN Authorized by: Aurelio Ponce APRN Consent: Consent obtained: Verbal Consent given by: Patient Risks, benefits, and alternatives were discussed: yes Risks discussed: Arterial puncture, bleeding, infection, incorrect placement, nerve damage and pneumothorax Alternatives discussed: Delayed treatment [place] protocol: Procedure explained and questions answered to patient or proxy's satisfaction: yes Relevant documents present and verified: yes Test results available: yes Imaging studies available: no Required blood products, implants, devices, and special equipment available: yes Site/side marked: yes Immediately prior to procedure, a time out was called: yes Patient identity confirmed: Verbally with patient and arm band Attending Supervision?: no Pre-procedure details: Indication(s): central venous access Hand hygiene: Hand hygiene performed prior to insertion Sterile barrier technique: All elements of maximal sterile technique followed Skin preparation: Chlorhexidine with alcohol Sedation: Sedation type: None Anesthesia: Anesthesia method: Local infiltration Local anesthetic: Lidocaine 1% w/o epi Procedure details: Location: R internal jugular Patient position: Trendelenburg Procedural supplies: Triple lumen Catheter size: 7 Fr Landmarks identified: yes Ultrasound guidance: yes Sterile ultrasound techniques: Sterile gel and sterile probe covers were used Number of attempts: 1 Successful placement: yes Post-procedure details: Post-procedure: Dressing applied and line sutured Assessment: Blood return through all ports Procedure completion: Tolerated Comments: CXR pending us Aurelio Ponce APRN IN CLINIC/BEDSIDE ORDERABLE S Final Result * IN CRITICAL CARE, E/M 30-74 MINUTES (10/10/2025 7:12 PM EST) Narrative Deric Johnson MD - 10/10/2025 7:12 PM EST Deric Johnson MD 10/10/2025 11:17 PM Critical Care Performed by: Dejuan Cabrera MD Authorized by: Aurelio Ponce APRN Critical care provider statement: Critical care time (minutes): 60 Critical care time was exclusive of: Separately billable procedures and treating other patients and teaching time Critical care was time spent personally by me on the following activities: Evaluation of patient's response to treatment, examination of patient, ordering and performing treatments and interventions, ordering and review of laboratory studies, review of old charts and ordering and review of radiographic studies Comments: This patient is critically ill with decompensated MASH cirrhosis, lactic acidosis, CARLOTTA on CKD 3b and shock requiring vasopressors and IVF boluses to maintain vital organ perfusion. Thus far, I have spent the above referenced minutes, devoted solely to this patient managing life/organ supporting interventions that required physical assessment. This includes time spent making adjustments in oxygen settings, vasopressor medications and IV fluid administration, reviewing and adjusting antibiotics and all medications, discussion of patient with consultants and other care providers as well as updating patient and/or family (if patient by virtue of his/her condition is unable to participate in decision making). This does not include time spent performing separately billed procedures. Time is not concurrent with that of other providers. us Aurelio Ponce APRN IN CLINIC/BEDSIDE ORDERABLE S Edited Result - Final * CT THORACIC OUTSIDE IMAGES (10/10/2025 12:05 PM EST) Only the most recent of4 resultswithin the time period is included. Anatomical Region Laterality Modality Computed Tomogra phy 10/10/2025 12:0 5 PM EST us External Provider IMG CT PROCEDURES Edited Resul t - Final * US OUTSIDE IMAGES (10/10/2025 11:41 AM EST) Anatomical Region Laterality Modality Ultrasound 10/10/2025 us External Provider IMG US PROCEDURES Edited Resul t - Final * US Chest or Upper Back Region [...] by ascites and intermittent hepatic hydrothorax. TECHNIQUE: Supervisor Shipping: ADRI Andersen [employer] Department Chair: None. Rad Dose: NA Medications: Continuous physiologic [...] complicatedby ascites and intermittent hepatic hydrothorax. TECHNIQUE: Supervisor Shipping: ADRI Andersen [employer] Department Chair: None. Rad Dose: NA Medications: Continuous physiologic [...] Final Resu lt * US Guided Thoracentesis (09/26/2025 9:16 AM EST) Only the most recent of6 resultswithin the time period is included. Anatomical [...] perform both paracentesis and right thoracentesis. TECHNIQUE: Supervisor Shipping: Wily Siddiqui MD Attending Physician: Mike Orr [...] to perform both paracentesisand right thoracentesis. TECHNIQUE: Supervisor Shipping: Wily Siddiqui MD Attending Physician: Mike Orr [...] physician, attestthat I was present for the jimenes and critical portions of the procedure(s)and agree with the final edited report. Drafted by Wily Siddiqui MD on 09/26/2025 3:30 PM Final report signed by Mike Orr MD on 09/26/2025 4:41 PM us Marianna N Jagdeeps SUPERVISOR GRINDING IMG US PROCEDURES Final Resu lt * Lavender Top (09/19/2025 3:33 PM EDT) Only the most recent of2 resultswithin the time period is included. Extra Hold for add-ons 09/19/2025 7:02 PM EDT [facility] Comment:Auto resulted. Blood Venous blood specimen / Unknown 09/19/2025 3:33 PM EDT 09/19/2025 4:19 PM EDT Latonia Dowell MD LAB BLOOD ORDERABLES Final Resul t Performing Organization Address [facility] Co de Phone Number [facility] [address] [place] [address] * Vitamin D 1,25 dihydroxy (09/19/2025 3:33 PM EDT) VITAMIN D, 1, 25-DIHYDROXY 38.3 19.9 - 79.3 pg/mL 09/20/2025 6:20 PM EDT [facility] Blood Venous blood specimen / Unknown Venipuncture / Unknown 09/19/2025 3:33 PM EDT 09/19/2025 4:38 PM EDT Latonia Dowell MD LAB BLOOD ORDERABLES Final Resul t Performing Organization Address [facility] Phone Number [facility] [address] [place] [address] * Total Protein, Pleural Fluid - Pleural Right (09/19/2025 10:11 AM EDT) Only the most recent of4 resultswithin the time period is included. Total Protein, Fluid 1.3 g/dL 09/19/2025 2:39 PM EDT [facility] Pleural Fluid Structure of right pleural cavity / Unknown Non-blood Collection / Unknown 09/19/2025 10:11 AM EDT 09/19/2025 11:52 AM EDT Narrative [facility] - 09/19/2025 2:39 PM EDT This test was developed and its performance characteristics determined by [facility]. The U.S. Food and Drug Administration has not approved or cleared this test. However, FDA clearance or approval is not currently required for clinical use. The results are not intended to be used as the sole means for clinical diagnosis or patient management decisions. Result [facility] us Latonia Dowell MD LAB BODY FLUIDS AND STOOLS ORDER FAMILIA Final Result Performing Organization Address City/[facility]/ZIP Co de Phone Number [facility] [address] [place] [address] * Lactate Dehydrogenase, Pleural Fluid - Right (09/19/2025 10:11 AM EDT) Only the most recent of2 resultswithin the time period is included. LDH, Fluid 54 U/L 09/19/2025 2:39 PM EDT [facility] Pleural Fluid Structure of right pleural cavity / Unknown Non-blood Collection / Unknown 09/19/2025 10:11 AM EDT 09/19/2025 11:52 AM EDT Narrative [facility] - 09/19/2025 2:39 PM EDT No [...] the following criteria are present: (1) pleural hilnn-dm-zexlc protein ratio of >0.5, (2) pleural mmypr-hc-mwcyi LDH ratio of >0.6, or (3) a pleural fluid LDH activity that is >2/3 the upper limit of a normal serum LDH activity. Light's criteria may misclassify ~25% of transudates as exudates in heart failure. These can be identified by calculating a metkf-oe-pqyvupy albumin gradient (>1.2 g/dL) and/or a nuqiv-wv-dvalp protein gradient (>3.1 g/dL). Latonia Dowell MD LAB BODY FLUIDS AND STOOLS ORDER FAMILIA Final Result Performing Organization Address City/[facility]/ZIP Co de Phone Number [facility] [address] [place] [address] * Pain Management, Quantitative Urine Drug Testing (09/17/2025 9:44 AM EDT) [place] Alprazolam <20 <20 ng/mL 09/19 6:09 PM EDT [facility] [place] Midazolam <20 <20 ng/mL 2024 6:09 PM EDT [facility] [place] Triazolam <20 <20 ng/mL 2024 6:09 PM EDT [facility] Alprazolam <10 <10 ng/mL 09/19/2025 6:09 PM EDT [facility] Aminoclonazepam <20 <20 ng/mL 5 6:09 PM EDT [facility] Amphetamine <50 <50 ng/mL 09/19/2025 6:09 PM EDT [facility] Benzoylecgonine <50 <50 ng/mL 6:09 PM EDT [facility] Buprenorphine <10 <10 ng/mL 09/19/2025 6:09 PM EDT [facility] Buprenorphine Glucuronide <50 <50 ng/mL 09/19/2025 6:09 PM EDT [facility] Butalbital <50 <50 ng/mL 09/19/2025 6:09 PM EDT [facility] 9 Carboxy THC <10 <10 ng/mL 09/19/2025 6:09 PM EDT [facility] 9 Carboxy THC Glucuronide <25 <25 ng/mL 09/19/2025 6:09 PM EDT [facility] Clonazepam <10 <10 ng/mL 09/19/2025 6:09 PM EDT [facility] Codeine <50 <50 ng/mL 09/19/2025 6:09 PM EDT [facility] Codeine Glucuronide <50 <50 ng/mL 09/19 6:09 PM EDT [facility] Cyclobenzaprine <50 <50 ng/mL 6:09 PM EDT [facility] Desmethyl Tramadol <50 <50 ng/mL 2024 6:09 PM EDT [facility] Diazepam <10 <10 ng/mL 09/19/2025 6:09 PM EDT [facility] EDDP - Methadone Metabolite <50 <50 ng/mL 09/19/2025 6:09 PM EDT [facility] Fentanyl <1 <1 ng/mL 09/19/2025 6:09 PM EDT [facility] Hydrocodone <50 <50 ng/mL 09/19/2025 6:09 PM EDT [facility] Hydromorphone <50 <50 ng/mL 09/19/2025 6:09 PM EDT [facility] Hydromorphone Glucuronide <50 <50 ng/mL 09/19/2025 6:09 PM EDT [facility] Lorazepam <20 <20 ng/mL 09/19/2025 6:09 PM EDT [facility] Lorazepam Glucuronide <50 <50 ng/mL 09/19/2025 6:09 PM EDT [facility] MDA <50 <50 ng/mL 09/19/2025 6:09 PM EDT [facility] MDMA <50 <50 ng/mL 09/19/2025 6:09 PM EDT [facility] Meperidine <50 <50 ng/mL 09/19/2025 6:09 PM EDT [facility] Methadone <50 <50 ng/mL 09/19/2025 6:09 PM EDT [facility] Methamphetamine <50 <50 ng/mL 6:09 PM EDT [facility] Methylphenidate <50 <50 ng/mL 6:09 PM EDT [facility] 6 Monoacetyl morphine <10 <10 ng/mL 09/19/2025 6:09 PM EDT [facility] Morphine <50 <50 ng/mL 09/19/2025 6:09 PM EDT [facility] Morphine Glucuronide <50 <50 ng/mL 08/23 6:09 PM EDT [facility] Naloxone <50 <50 ng/mL 09/19/2025 6:09 PM EDT [facility] Naloxone Glucuronide <50 <50 ng/mL 08/23 6:09 PM EDT [facility] Norbuprenorphine <10 <10 ng/mL 09/19/20 6:09 PM EDT [facility] Norbuprenorphine Glucuronide <50 <50 ng/mL 09/19/2025 6:09 PM EDT [facility] Nordiazepam <20 <20 ng/mL 09/19/2025 6:09 PM EDT [facility] Norfentanyl <2 <2 ng/mL 09/19/2025 6:09 PM EDT [facility] Normeperidine <50 <50 ng/mL 09/19/2025 6:09 PM EDT [facility] PCP Quant, Ur <50 <50 ng/mL 09/19/2025 6:09 PM EDT [facility] Phenobarbital <50 <50 ng/mL 09/19/2025 6:09 PM EDT [facility] Oxazepam <20 <20 ng/mL 09/19/2025 6:09 PM EDT [facility] Oxazepam Glucuronide <50 <50 ng/mL 08/23 6:09 PM EDT [facility] Oxycodone <50 <50 ng/mL 09/19/2025 6:09 PM EDT [facility] Oxymorphone <50 <50 ng/mL 09/19/2025 6:09 PM EDT [facility] Oxymorphone Glucuronide <50 <50 ng/mL 09/19/2025 6:09 PM EDT [facility] Secobarbital <50 <50 ng/mL 09/19/2025 6:09 PM EDT [facility] Tramadol <50 <50 ng/mL 09/19/2025 6:09 PM EDT [facility] Temazepam <20 <20 ng/mL 09/19/2025 6:09 PM EDT [facility] Temazepam Glucuronide <50 <50 ng/mL 09/19/2025 6:09 PM EDT [facility] Urine Urine specimen obtained by clean catch procedure / Unknown Non-blood Collection / Unknown 09/17/2025 9:44 AM EDT 09/17/2025 10:19 AM EDT Narrative [facility] - 09/19/2025 6:09 PM EDT This report is intended for [...] laboratory. Test performed by LC-MS/MS at the [facility]. This test was developed and its performance characteristics determined by [facility]. It has not been cleared or approved by the FDA. The laboratory is regulated under CLIA as qualified to perform high-complexity testing. This test is used for clinical purposes. Gerson Arora MD LAB URINE ORDERABLES Final Resul t Performing Organization Address [facility] de Phone Number [facility] [address] [place] [address] * Nicotine Cotinine Metabolite (09/17/2025 9:44 AM EDT) NICOTINE <5 <5 ng/mL 09/18/2025 11:17 AM EDT [facility] Cotinine <5 <5 ng/mL 09/18/2025 11:17 AM EDT [facility] Blood Venous blood specimen / Unknown Venipuncture / Unknown 09/17/2025 9:44 AM EDT 09/17/2025 10:15 AM EDT Narrative [facility] - 09/18/2025 11:17 AM EDT Testing performed by LC-MS/MS at the [facility]. This test was developed and its performance characteristics determined by [facility]. This assay has not been cleared by the FDA. The laboratory is regulated under CLIA as qualified to perform high-complexity testing. This test is used for clinical purposes. Gerson Arora MD LAB BLOOD ORDERABLES Final Resul t Performing Organization Address [facility] de Phone Number [facility] [address] [place] [address] * Alcohol Urine (09/17/2025 9:44 AM EDT) Alcohol Urine Negative Negative 09/17/2025 2:18 PM EDT [facility] Urine Urine specimen obtained by clean catch procedure / Unknown Non-blood Collection / Unknown 09/17/2025 9:44 AM EDT 09/17/2025 10:19 AM EDT Narrative [facility] - 09/17/2025 2:18 PM EDT The correlation between urine and serum ethanol concentration is highly variable. Test performed by Gas Chromatography at the [facility]. This test was developed and its performance characteristics determined by [facility]. It has not been cleared or approved by the FDA.The laboratory is regulated under CLIA as qualified to perform high-complexity testing. This test is used for clinical purposes only. The correlation between urine and serum ethanol concentration is highly variable. Test performed by Gas Chromatography at the [facility]. This test was developed and its performance characteristics determined by [facility]. It has not been cleared or approved by the FDA.The laboratory is regulated under CLIA as qualified to perform high-complexity testing. This test is used for clinical purposes only. Gerson Arora MD LAB URINE ORDERABLES Final Resul t Performing Organization Address [facility] Co de Phone Number [facility] [address] [place] [address] * (ABNORMAL) CEA (09/17/2025 9:44 AM EDT) CEA, Serum 12.3(H) <4.0 ng/mL 09/17/2025 11:04 AM EDT [facility] Blood Venous blood specimen / Unknown Venipuncture / Unknown 09/17/2025 9:44 AM EDT 09/17/2025 10:14 AM EDT Narrative [facility] - 09/17/2025 11:04 AM EDT Normal range for smokers: < 5.5 ng/ml Normal range for non-smokers: <=4.0 ng/ml Performed by [employer] electrochemiluminescent immunoassay. Results obtained with different test methods or kits cannot be used interchangeably. Gerson Arora MD LAB BLOOD ORDERABLES Final Resul t Performing Organization Address City/[facility] Co de Phone Number [facility] [address] [place] [address] * POCT glycosylated hemoglobin (Hb A1C) (08/26/2025 1:04 PM EDT) POCT Hemoglobin A1C 6.4 <5.7% Non-Diabet ic % [facility] Kit Lot Number [id number] [facility] Kit Expiration Date 06/16 [facility] Blood Venous blood specimen / Unknown 08/26/2025 1:04 PM EDT us Miranda Hobson SUPERVISOR GRINDING POINT OF CARE TEST ENTER /EDIT ORDERABLES Final Result [facility] [address] [place] [address] * US Abdomen Focused Region Other (08/19/2025 [...] Mahendra Castro MD on 08/19/2025 1:49 PM us Sushma Meza MD IMG US PROCEDURES Final Resu lt * Protein, Random, Urine with Creatinine (08/18/2025 4:15 PM EDT) Protein, Urine 36 mg/dL 08/18/2025 4:49 PM EDT [facility] [facility] Creatinine, Urine 126 mg/dL 08/18/2025 4:49 PM EDT [facility] Protein/Creati nine Ratio 0.3 mg/mg Creat 08/18/2025 4:49 PM EDT [facility] Urine Urine specimen obtained by clean catch procedure / Unknown Non-blood Collection / Unknown 08/18/2025 4:15 PM EDT 08/18/2025 4:23 PM EDT Sushma Meza MD LAB URINE ORDERABLES Final R esult Performing Organization Address City/[facility] Co de Phone Number [facility] [address] [place] [address] * Osmolality (08/18/2025 6:11 AM EDT) Pathologist [facility] Osmolality, Serum 297 280 - 301 mOsm/Kg 08/18/2025 5:06 PM EDT [facility] Blood Venous blood specimen / Unknown Venipuncture / Unknown 08/18/2025 6:11 AM EDT 08/18/2025 6:20 AM EDT Sushma Meza MD LAB BLOOD ORDERABLES Final R esult Performing Organization Address City/[facility]/ZIP Co de Phone Number [facility] [address] [place] [address] * Lipase (08/18/2025 6:11 AM EDT) Lipase, Plasma 49 19 - 63 U/L 08/18/2025 6:51 AM EDT [facility] Blood Venous blood specimen / Unknown Venipuncture / Unknown 08/18/2025 6:11 AM EDT 08/18/2025 6:20 AM EDT us Alvarez Brice MD LAB BLOOD ORDERABLES Final Result Performing Organization Address City/[facility]/ZIP Co de Phone Number [facility] [address] [place] [address] * XR OUTSIDE IMAGES (08/17/2025 4:41 PM EDT) Anatomical Region Laterality Modality Radiographic [place] ging 08/17/2025 4:41 PM EDT us Rowan S Gray DO IMG XR PROCEDURES Edited Result - Final * CT NEURO OUTSIDE IMAGES (08/17/2025 4:36 PM EDT) Anatomical Region Laterality Modality Computed Tomogra phy 08/17/2025 4:36 PM EDT us External Provider IMG CT PROCEDURES Edited Resul t - Final * (ABNORMAL) Body Fluid Cell Count W/O Diff (2025 9:25 AM EDT) Specimen Source, Body Fluid Peritoneal Fluid 2025 2:25 PM EDT [facility] Specimen Type Body Fluid 2025 2:25 PM EDT [facility] Color, Body fluid Yellow LAB HEMATOLOGY METHOD 2025 2:25 PM EDT [facility] Appearance, Body fluid Cloudy(A) LAB HEMATOLOGY METHOD 2025 2:25 PM EDT [facility] Volume, Body fluid 45.0 cc LAB HEMATOLOGY METHOD 2025 2:25 PM EDT [facility] Red Blood Cell Count, Body fluid 4,000 uL LAB HEMATOLOGY METHOD 2025 2:25 PM EDT [facility] Total Nucleated Cell Count, Body fluid 129 uL LAB HEMATOLOGY METHOD 2025 2:25 PM EDT [facility] Fluid Container Specimen received in miscellaneous container LAB HEMATOLOGY METHOD 2025 2:25 PM EDT [facility] Body Fluid Peritoneal fluid / Unknown Non-blood Collection / Unknown 2025 9:25 AM EDT 2025 10:44 AM EDT us Micheal E Pee SUPERVISOR GRINDING, DNP LAB BODY FLUIDS AND ST OOLS ORDERABLES Final Result [facility] [address] [address] * Dexa Bone Density (11/07/2024 9:09 AM [...] forearm, right forearm was performed using a [employer] Horizon A Dual-energy X-ray Absorptiometry (DXA) scanner [...] left forearm, right forearm wasperformed using a [employer] Medical Horizon A Dual-energy X-ray Absorptiometry (DXA)scanner (software [...] MD IMG DXA PROCEDURES Final Result * Colonoscopy External Result (01/14/2023) Anatomical Region Laterality Modality Endoscopy Narrative 01/14/2023 Ordered by an unspecified provider. us External Provider GI PROCEDURE ORDERABLES Final Result * Cytology (04/12/2003 12:00 AM EDT) 04/12/2003 04/16/2003 Narrative SUNQUEST - 04/26/2003 7:51 AM EDT [facility] MR #: [id number] [facility] [place] [id number] 1960 (Age: 42) FW Collect Date: 04/12/2003 00:00 Receipt Date: 04/16/2003 00:00 Page 1 DEPARTMENT OF PATHOLOGY AND LABORATORY MEDICINE CYTOPATHOLOGY REPORT Email: [email or web address] ATTENDING MD/Practitioner: Rosaline Cooper MD Service: PAT [...] results is suggested (please call Microbiology at [phone] for results). CLINICAL INFORMATION: Menstrual History: Cyclic Date of Last Menstrual Period: 11/23 Contraceptive History: control pills Other Clinical Conditions: Per computer, patient has a history of previous abnormal pap SPECIMEN DESCRIPTION: A: THIN PREP (CERVICAL/VAGINAL) THIN PREP PROCESS CELLULAR ENHANCEMENT ICD: 795.00 ABNORMAL GLANDULAR PAPANICOLAOU SMEAR OF CERVIX F: A; THIN SCRN [id number], THIN SCRN [id number] <CR>, [place] [address] SNOMED CODES: A; [id number] In cases where a pathologist has signed out the report, the service has been rendered in part by a resident. The signing pathologist has performed and is responsible for the reported pathologic evaluation. 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 Yes * DNR/DNI Date Activated Date Inactivated Comments 10/15/2025 2:14 PM 10/23/2025 2:07 PM Question Answer Comments DNR determined on/before admission date? Yes I have reviewed the capacity from the link above and, if needed, have updated to appropriate status: Yes * DNR - Ok to intubate Date Activated Date Inactivated Comments 10/10/2025 11:00 PM 10/15/2025 2:14 PM Question Answer Comments DNR determined on/before admission date? Yes I have reviewed the capacity from the link above and, if needed, have updated to appropriate status: Yes * DNR - Ok to intubate Date Activated Date Inactivated Comments 09/17/2025 5:34 PM 09/23/2025 12:[address] ated that she was ok to be intubated and on ventilator but would prefer no chest compressions or further life saving interventions if her heart were to stop beating; would like other life saving interventions as detailed in living will Question Answer Comments DNR determined on/before admission date? Yes I have reviewed the capacity from the link above and, if needed, have updated to appropriate status: Yes * Full Code Date Activated Date Inactivated Comments 09/17/2025 4:21 PM 09/17/2025 5:34 PM Question Answer Comments I have reviewed the capacity from the link above and, if needed, have updated to appropriate status: Yes Healthcare Agents on File Name Relationship Healthcare Agent Relationship Communication Lj HCS1 Gabe Sister Health Care Agent [id number] (Mobile) Irvin Stratton [facility] Goran Son First Alte rnate Health Care Agent Karime Singletary Mother Second Alternate Health Care Agent Care Teams Supervisor Files Relationship Specialty Start Date End Date Macho, Lillie M, MD [address] [place] [address] PCP - General Family Medicine 09/03/[address] [facility] [address] [place] [address] Professional Sports Scout Endocrinology 08/29/24 Rachel Ray, RN [address] [facility] [address] [place] [address] Nurse Practitioner Gastroenterology 09/24/24 Tamera Isabel LPN VALUE-BASED TRANSFORMATION PROGRAM None Licensed Practical Nurse 05/29/25
--- OUTSIDE RECORDS SUMMARY | 2025-11-11 23:05 | XMS_ITS | Encounter Summary ---
Author Organization [employer] ([place], [place], [place], [place], [place]) Address [address] [place] [address] Care Team Providers Care Director Of Software Development Name Role Phone Trupti Taina Carmel ADRI Primary Care Provider [phone] Encounter Details Date Type Department Care Team (Late st Contact Info) Description 09/09/2020 Transcribed Document [facility] Family Medicine [address] [place] [address] ProviderWilliam MD [address] [place], [place] [address] Social History Tobacco Use Types Packs/Day Years [...] On: 09/09/2020 15:08 EDT by KEITH TAVERA, VENDER Event Note ED Event Date/Time : 09/09/2020 [...] filedocumented in this encounter Care Teams Director Of Software Development Relationship Specialty Start Date End Date Taina Lyles, PROFESSOR OF VIOLIN [address] [place] [address] PCP - General Nurse Practitioner 06/15/23 documented as of this encounter
--- OUTSIDE RECORDS SUMMARY | 2025-11-11 23:05 | XMS_ITS | Encounter Summary ---
Author Organization [employer] ([place], [place], [place], [place], [place]) Address [address] [place] [address] Care Team Providers Care Funeral Director/Embalmer Name Role Phone Adarshfaith Taina Burt APRN Primary Care Provider [phone] Encounter Details Date Type Department Care Team (Late st Contact Info) Description 09/09/2020 Transcribed Document [facility] Family Medicine [address] [place] [address] ProviderWilliam MD [address] [place], [place] [address] Social History Tobacco Use Types Packs/Day Years [...] - 09/09/2020 5:58 EDT Electronically signed by Luigi [facility] Conversion Therapeutic Recreation Specialist Cerner at 03/07/2023 10:00 AM CDT documented in this encounter Plan of Treatment Not on file documented as of this encounter Visit Diagnoses Not on filedocumented in this encounter Care Teams Funeral Director/Embalmer Relationship Specialty Start Date End Date Taina Lyles, MAINSPRING FABRICATION SUPERVISOR [address] [place] [address] PCP - General Nurse Practitioner 06/15/23 documented as of this encounter
--- OUTSIDE RECORDS SUMMARY | 2025-11-11 23:05 | XMS_ITS | Encounter Summary ---
Author Organization [employer] ([place], [place], [place], [place], [place]) Address [address] [place] [address] Care Team Providers Care House Fellow Name Role Phone Adarshfaith Taina Burt APRN Primary Care Provider [phone] Encounter Details Date Type Department Care Team (Late st Contact Info) Description 07/01/2021 Transcribed Document [facility] Family Medicine [facility] [place] [address] ProviderWilliam MD [address] [place], [place] [address] Social History Tobacco Use Types Packs/Day Years [...] Reyes MD - 07/01/2021 12:13 PM CDT [place] Suicide Severity Rating Scale (C-SSRS) Entered On: 07/01/2021 17:31 EDT Performed On: 07/01/2021 17:31 EDT by Medina Lai RN [place] Suicide Severity Rating Scale (C-SSRS) CSSRS Past [...] filedocumented in this encounter Care Teams House Fellow Relationship Specialty Start Date End Date Taina Lyles, CINDER SNAPPER [address] [place] [address] PCP - General Nurse Practitioner 06/15/23 documented as of this encounter
--- OUTSIDE RECORDS SUMMARY | 2025-11-11 23:05 | XMS_ITS | Encounter Summary ---
Author Organization [employer] ([place], [place], [place], [place], [place]) Address [address] [place] [address] Care Team Providers Care General Sales Manager Name Role Phone Taina Lyles ADRI Primary Care Provider [phone] Encounter Details Date Type Department Care Team (Late st Contact Info) Description 09/09/2020 Transcribed Document [facility] [place] [address] [place] [address] ProviderWilliam MD [address] [place] [address] Social History Tobacco Use Types Packs/Day Years [...] On: 09/09/2020 15:09 EDT by KEITH TAVERA table games floor supervisor Process Patient Disposition : Discharge Personal [...] filedocumented in this encounter Care Teams General Sales Manager Relationship Specialty Start Date End Date Taina Lyles, ADRI [address] [place] [address] PCP - General Nurse Practitioner 06/15/23 documented as of this encounter
--- OUTSIDE RECORDS SUMMARY | 2025-11-11 23:05 | XMS_ITS | Encounter Summary ---
Author Organization [employer] ([place], [place], [place], [place], [place]) Address [address] [place] [address] Care Team Providers Care Battery Technician Name Role Phone Taina Lyles ADRI Primary Care Provider [phone] Encounter Details Date Type Department Care Team (Late st Contact Info) Description 07/02/2021 Transcribed Document [facility] Family Medicine [facility] [place] [address] ProviderWilliam MD [address] [place], [place] [address] Social History Tobacco Use Types Packs/Day Years [...] - 07/02/2021 12:33 EDT Electronically signed by [facility] Conversion Mortgage Analyst Cerner at 03/07/2023 9:50 AM CDT documented in this encounter Plan of Treatment Not on file documented as of this encounter Visit Diagnoses Not on filedocumented in this encounter Care Teams Battery Technician Relationship Specialty Start Date End Date Taina Lyles, SPECIAL [employer] INSURANCE [address] [place] [address] PCP - General Nurse Practitioner 06/15/23 documented as of this encounter
--- OUTSIDE RECORDS SUMMARY | 2025-11-11 23:05 | XMS_ITS | Encounter Summary ---
Author Organization [employer] ([place], [place], [place], [place], [place]) Address [address] [place] [address] Care Team Providers Care Continuous Loft Operator Name Role Phone Adarshfaith Taina Burt APRN Primary Care Provider [phone] Encounter Details Date Type Department Care Team (Late st Contact Info) Description 07/02/2021 Transcribed Document [facility] Family [place] [address] ProviderWilliam MD [address] [place], [place] [address] Social History Tobacco Use Types Packs/Day Years Used Date Smoking Tobacco: Never Assessed Comments Unknown Sex and Gender Information Value Date Recorded Sex Assigned at Not on file Legal Sex Female 12:21 PM CDT Gender Identity Not on file Sexual Orientation Not on file documented as of this encounter Miscellaneous Notes * Cerner Conversion Note - William ProviderMD - 07/02/2021 2:30 AM CDT ED Event [...] on filedocumented in this encounter Care Teams Continuous Loft Operator Relationship Specialty Start Date End Date Taina Lyles, MEAT HANGER [address] [place] [address] PCP - General Nurse Practitioner 06/15/23 documented as of this encounter
--- OUTSIDE RECORDS SUMMARY | 2025-11-11 23:05 | XMS_ITS | Encounter Summary ---
Author Organization [email or web address] ([place], [place], [place], [place], [place]) Address [address] [place] [address] Care Team Providers Care Manager Endoscopy Name Role Phone Taina Lyles ADRI Primary Care Provider [phone] Encounter Details Date Type Department Care Team (Late st Contact Info) Description 07/02/2021 Transcribed Document [facility] [place] [facility] [place] [address] ProviderWilliam MD [address] [place], [place] [address] Social History Tobacco Use Types Packs/Day Years Used Date Smoking Tobacco: Never Assessed Comments Unknown Sex and Gender Information Value Date Recorded Sex Assigned at Not on file Legal Sex Female 12:21 PM CDT Gender Identity Not on file Sexual Orientation Not on file documented as of this encounter Miscellaneous Notes * Cerner Conversion Note - Historical ProviderMD - 07/02/2021 12:33 PM CDT ED Event [...] filedocumented in this encounter Care Teams Manager Endoscopy Relationship Specialty Start Date End Date Taina Lyles, STUCCO MASON [address] [place] [address] PCP - General Nurse Practitioner 06/15/23 documented as of this encounter
--- OUTSIDE RECORDS SUMMARY | 2025-11-11 23:05 | XMS_ITS ---
Author Organization [facility] Address [address] [place] [address] Care Team Providers Care Hydrography Teacher Name Role Phone Lea Fernando Unavailable [phone] Rachel Ray RN Unavailable [phone] Tamera Isabel LPN Unavailable Unavailabl e Lillie Pritchard MD Primary Care Provider [phone] Transplant Episode Kidney Candidate [facility] ([place], [place]) [facility] Evaluation began on 10/30/2024 Marked as Ineligible on 01/28/2025 Reason: Does Not Meet Criteria Kidney CoordinatorWilma Arana RN Phone: N/A Fax: N/A Email: N/A Scores Score Value Updated Exceptions/Reas ons CPRA Not available EPTS (Calc) 54 11/11/2025 [place] Organ Diagnosis Organ Primary Contributory Kidney Diabetes Mellitus - Type II Care Team Name Role Phone Fax Email Wilma Arana RN Kidney Coordinator N/A N/A N/A Events Pre-Transplant Referred: 10/21/2024 Evaluation began: 10/30/2024
--- OUTSIDE RECORDS SUMMARY | 2025-11-11 23:05 | XMS_ITS | Encounter Summary ---
Author Organization [employer] ([place], [place], [place], [place], [place]) Address [address] [place] [address] Care Team Providers Care Snout Puller Name Role Phone Taina Lyles APRN Primary Care Provider Encounter Details Date Type Department Care Team (Late st Contact Info) Description 07/02/2021 Transcribed Document [facility] Family Medicine [facility] [place] [address] ProviderWilliam MD [address] [place] [address] Social History Tobacco Use Types Packs/Day Years [...] 10:49 AM CDT Electronically signed by Luigi [facility] Conversion Coat Room Attendant Cerner at 03/07/2023 9:52 AM CDT documented in this encounter Plan of Treatment Not on file documented as of this encounter Visit Diagnoses Not on filedocumented in this encounter Care Teams Snout Puller Relationship Specialty Start Date End Date Taina Lyles APRN [address] [facility] [place] [address] PCP - General Nurse Practitioner 06/15/23 documented as of this encounter
--- OUTSIDE RECORDS SUMMARY | 2025-11-11 23:05 | XMS_ITS | Encounter Summary ---
Author Organization [employer] ([place], [place], [place], [place], [place]) Address [address] [place] [address] Care Team Providers Care Attendant Arcade Name Role Phone Taina Lyles APRN Primary Care Provider Encounter Details Date Type Department Care Team (Late st Contact Info) Description 09/09/2020 Transcribed Document [facility] Family Medicine [address] [place] [address] ProviderWilliam MD [address] [place] [address] Social History Tobacco Use Types Packs/Day Years [...] 12:00 PM CDT Electronically signed by Luigi [facility] Conversion Seed Corn Production Manager Cerner at 03/07/2023 9:57 AM CDT documented in this encounter Plan of Treatment Not on file documented as of this encounter Visit Diagnoses Not on filedocumented in this encounter Care Teams Attendant Arcade Relationship Specialty Start Date End Date Taina Lyles APRN [address] [facility] [place] [address] PCP - General Nurse Practitioner 06/15/23 documented as of this encounter
--- OUTSIDE RECORDS SUMMARY | 2025-11-11 23:05 | XMS_ITS ---
Author Organization [facility] Address [address] [place] [address] Care Team Providers Care Bowstring Maker Name Role Phone Lea Fernando Unavailable [phone] Rachel Ray RN Unavailable [phone] Tamera Isabel LPN Unavailable Unavailabl e Lillie Pritchard MD Primary Care Provider [phone] Transplant Episode Liver Candidate [facility] ([place], [place]) - [facility] waitlisted on 02/19/2025 Marked as Removed on 09/24/2025 Reason: Other Liver CoordinatorWilma Arana RN Phone: N/A Fax: N/A Email: N/A Scores Score Value Updated Expires Exceptions/Jeanine sons CPRA Not available MELD (Calc) 33 10/18/2025 [place] Organ Diagnosis Organ Primary Contributory 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) Care Team Name Role Phone Fax Email Wilma Arana RN Liver Coordinator N/A N/A N/A Lea Reilly LCSW Columnist N/A N/A N/A Gerson Arora MD Surgeon [phone] N/A Wilma Howard APRN Primary Care Provider [phone] N/A Rachel Ray RN Referring Physician [phone] N/A Events Pre-Transplant Referred: 09/24/2024 Evaluation began: 10/08/2024 Committee: 01/28/2025 Center waitlisted: 02/19/2025
--- OUTSIDE RECORDS SUMMARY | 2025-11-11 23:05 | XMS_ITS | Encounter Summary ---
Author Organization [employer] ([place], [place], [place], [place], [place]) Address [address] [place] [address] Care Team Providers Care Bowling Ball Grader And Marker Name Role Phone Taina Lyles ADRI Primary Care Provider [phone] Encounter Details Date Type Department Care Team (Late st Contact Info) Description 07/02/2021 Transcribed Document [facility] [place] Family [place] [facility] [address] ProviderWilliam MD [address] [place] [address] Social History Tobacco Use Types [...] Reyes MD - 07/02/2021 10:50 AM CDT [place] [id number] MONIKA ORDAZYE :1960 Visit Time:07/01/2021 Your Visit Summary Your [...] from ER. Where: [address] [place] [address]- Business (1) Follow Up with CORINA ABAD [...] range between ( 1.0 and 7.0 ) Wirt #: 0.66 K/uL -- Normal range between ( 0.24 and 0.82 ) Eos #: 0.49 K/uL -- Normal range between ( 0.04 and 0.54 ) Wirt %: 8.2 % -- Normal range between [...] safe for you. General instructions ??? Take zwer-sgd-puttwoo and prescription medicines only as told by [...] provider. Document Revised: 05/10/2019 Document Reviewed: 05/10/2019 [employer] Patient Education ?? 2020 [employer]. Aspirin and Your Heart Aspirin is a [...] The two forms of aspirin are: ? Nqq-txzyuex-kucekz.This type of aspirin does not have a coating and is absorbed quickly. This type of aspirin also comes in a chewable form. ? Enteric-coated. This type of aspirin has a coating that releases the medicine very slowly. Enteric-coated aspirin might cause less stomach upset than yqu-ryawhcc-rxljdf aspirin. This type of aspirin should not [...] provider. Document Revised: 09/07/2018 Document Reviewed: 09/07/2018 [employer] Patient Education ?? 2020 [employer]. Acute Pain, Adult Acute pain is a [...] these instructions at home: Medicines ??? Take irlb-fuh-sctevro and prescription medicines only as told by [...] is severe. ? Do not take other ccbw-zmb-nrgwsat pain medicines in addition to prescription pain [...] and fresh fruits and vegetables. ? Take cxax-bvb-tgarvhr or prescription medicines. ? Limit foods that [...] you are no longer ill. ??? Take sqse-okq-dfkhdiu and prescription medicines only as told by [...] provider. Document Revised: 03/24/2020 Document Reviewed: 03/24/2020 [employer] Patient Education ?? 2020 [employer]. Coronary Angiogram A coronary angiogram is an [...] including vitamins, herbs, eye drops, creams, and lfzl-nyh-dcbuyab medicines. ??? Any problems you or family [...] do not normally take it. ??? Taking qfmc-tfk-vzdlzdf medicines, vitamins, herbs, and supplements. General instructions [...] provider. Document Revised: 05/29/2020 Document Reviewed: 05/29/2020 [employer] Patient Education ?? 2020 [employer] Nonspecific Chest Pain, Pediatric Chest pain [...] instructions at home: General instructions ??? Give jpuc-hcw-kzkyihd and prescription medicines only as told by [...] and is usually not dangerous. ??? Give guyi-ylq-ewkknvv and prescription medicines only as told by [...] provider. Document Revised: 06/08/2019 Document Reviewed: 06/08/2019 [employer] Patient Education ?? 2020 [employer] Nonspecific Chest Pain Chest pain can [...] these instructions at home: Medicines ??? Take xsac-ffw-xnsehmy and prescription medicines only as told by [...] Eating a heart-healthy diet. A diet and research nutritionist (dietitian) can help you to learn healthy [...] provider. Document Revised: 05/10/2019 Document Reviewed: 05/10/2019 [employer] Patient Education ?? 2020 [employer]. Emergency Awareness and Preventative Care STROKE [...] Assistance with quitting is available by contacting 8-750-LJONNOW. This is a free resource providing counseling, support, and referral. Or you may contact your personal physician. [place] Suicide Prevention Lifeline: The National Suicide Prevention [...] emergency, radiology, or pathology physicians. Patient Name:MONIKA ORDAZ CHRISTINE I have received this information and was given the opportunity to ask questions. Patient/Military Communications Specialist Name: Patient/Military Communications Specialist Signature: Relationship to Patient: Clinician/Hospital Military Communications Specialist Signature: Please Provide a Telephone Number Where You Can Be Reached: Is it Permissible To Leave a Message? Date: Electronically signed by Luigi, [facility] Conversion Edge Drummer Cerner at 03/07/2023 9:48 AM CDT documented in this encounter Plan of Treatment Not on file documented as of this encounter Visit Diagnoses Not on filedocumented in this encounter Care Teams Bowling Ball Grader And Marker Relationship Specialty Start Date End Date Taina Lyles, DOBBY LOOM CHAIN PEGGER [address] [place] [address] PCP - General Nurse Practitioner 06/15/23 documented as of this encounter
--- OUTSIDE RECORDS SUMMARY | 2025-11-11 23:05 | XMS_ITS | Encounter Summary ---
Author Organization [email or web address] ([place], [place], [place], [place], [place]) Address [address] [place] [address] Care Team Providers Care Winch Truck Operator Name Role Phone Wilfredolayla Taina Burt APRN Primary Care Provider [phone] Encounter Details Date Type Department Care Team (Late st Contact Info) Description 09/09/2020 Transcribed Document [facility] [place] Family Medicine [address] [place] [address] ProviderWilliam MD [address] [place], [place] [address] Social History Tobacco Use Types Packs/Day Years [...] EDT Electronically signed by Maddie Meyers Conversion Assistant Chief Nursing Officer Cerner at 03/07/2023 9:55 AM CDT documented in this encounter Plan of Treatment Not on file documented as of this encounter Visit Diagnoses Not on filedocumented in this encounter Care Teams Winch Truck Operator Relationship Specialty Start Date End Date Tiana Lyles, ORIENTATION & MOBILITY SPECIALIST [address] [place] [address] PCP - General Nurse Practitioner 06/15/23 documented as of this encounter
--- OUTSIDE RECORDS SUMMARY | 2025-11-11 23:05 | XMS_ITS ---
Author Organization [facility] Address [address] [place] [address] Care Team Providers Care Rn Community Name Role Phone Lea Fernando Unavailable [phone] Rachel Ray RN Unavailable [phone] Tamera Isabel LPN Unavailable [facility] Lillie Pritchard MD Primary Care Provider [phone] Transitional Care Management Status:Closed (Closed) Program category:Transitional Care Management - [facility] Start date:08/21/2025 Enrollment date:08/21/2025 Enrollment reason:Identified using hospital discharge data End date:09/20/2025 Close reason:Patient graduated Overview This episode type is for outpatient care managers enrolling patients in the CMS Transitional Care Management program. Continued Care and Services Coordination
--- OUTSIDE RECORDS SUMMARY | 2025-11-11 23:05 | XMS_ITS | Encounter Summary ---
Author Organization [employer] ([place], [place], [place], [place], [place]) Address [address] [place] [address] Care Team Providers Care Rug Measurer Name Role Phone Adarshfaith Taina Burt APRN Primary Care Provider [phone] Encounter Details Date Type Department Care Team (Late st Contact Info) Description 09/09/2020 Transcribed Document [facility] [place] Family Medicine [address] [place] [address] ProviderWilliam MD [address] [place], [place] [address] Social History Tobacco Use Types Packs/Day Years [...] On: 09/09/2020 12:24 EDT by KEITH TAVERA, INSTRUCTOR ADJUNCT PHARMACY TECHNICIAN Event Note ED Event Date/Time : 09/09/2020 12:24 EDT ED Event Location : Assigned room ED Event Details : Nursing assessment additional narrative ED Description of Event : pt is up for discharge. has called son to come cotton picking machine operator patient KEITH TAVERA, RN - 09/09/2020 12:24 EDT documented in this encounter Plan of Treatment Not on file documented as of this encounter Visit Diagnoses Not on filedocumented in this encounter Care Teams Rug Measurer Relationship Specialty Start Date End Date Taina Lyles, YARD TRUCK DRIVER [address] [place] [address] PCP - General Nurse Practitioner 06/15/23 documented as of this encounter
--- OUTSIDE RECORDS SUMMARY | 2025-11-11 23:06 | XMS_ITS | Encounter Summary ---
Author Organization [employer] ([place], [place], [place], [place], [place]) Address [address] [place] [address] Care Team Providers Care Couples Therapist Name Role Phone Adarshfaith Taina Burt APRN Primary Care Provider [phone] Encounter Details Date Type Department Care Team (Late st Contact Info) Description 09/08/2020 Transcribed Document [facility] [place] [address] [place] [address] ProviderWilliam MD [address] [place], [place] [id number] Social History Tobacco Use Types Packs/Day Years [...] on filedocumented in this encounter Care Teams Couples Therapist Relationship Specialty Start Date End Date Taina Lyles, LAWN SERVICE WORKER [address] [place] [address] PCP - General Nurse Practitioner 06/15/23 documented as of this encounter
--- OUTSIDE RECORDS SUMMARY | 2025-11-11 23:06 | XMS_ITS | Encounter Summary ---
Author Organization [employer] ([place], [place], [place], [place], [place]) Address [address] [place] [address] Care Team Providers Care Transport Rn Name Role Phone Adarshfaith Taina Burt APRN Primary Care Provider [phone] Encounter Details Date Type Department Care Team (Late st Contact Info) Description 09/08/2020 Transcribed Document [facility] [place] [address] [place] [address] ProviderWilliam MD [address] [place], [place] [address] Social History Tobacco Use Types Packs/Day Years [...] On: 09/08/2020 15:26 EDT by RUSTY HART STRAND AND BINDER CONTROLLER Triage Across the Room Chief Complaint : Pt reports Discomfront in chest that began yesterday states tingling in left arm Triage Date/Time : 09/08/2020 15:26 EDT RUSTY HART RN - 09/08/2020 15:26 EDT DCP GENERIC CODE Tracking Acuity : 2 - Emergent Tracking Group : [facility] RUSTY HART RN - 09/08/2020 15:26 EDT Mode of Arrival : Ambulatory Transported to ED by : Private vehicle To Room Via : Ambulate Accompanied By : Significant other ED Vital Signs : Document Height & Weight : Document ED Allergies : Document ED Reason for Visit : Document Tetanus Immunization : Unknown HAILEY RUSTY Loyd, PARK - 09/08/2020 15:26 EDT Infectious Disease History Has the patient ever been tested for COVID-19? : No, Patient stated Does patient have symptoms of COVID-19? : No COVID19 Screening : No Experiencing Infectious Disease Symptoms : No symptoms Physical contact outside [place] in the last 30 days : No Infectious Disease History : Chicken pox/Shingles, Mumps Tuberculosis Symptoms : None HAILEY FEBRUARY Loyd, RN - 09/08/2020 15:26 EDT Vital Signs [...] Problems(Active) ADD (attention deficit disorder) (SNOMED CT :4640157702 ) Name of Problem: ADD (attention deficit disorder) ; Recorder: AZALEA ALBRIGHT RN; Confirmation: Confirmed ; Classification: Patient Stated ; Code: [id number] ; Contributor System: [employer] ; Last Updated: 01/11/2017 14:23 EST ; Life Cycle Date: 01/11/2017 ; Life Cycle Status: Active ; Vocabulary: SNOMED CT Anxiety (SNOMED CT :9984712476 ) Name of Problem: Anxiety ; Recorder: AZALEA ALBRIGHT RN; Confirmation: Confirmed ; Classification: Patient Stated ; Code: 6870864546 ; Contributor System: [employer] ; Last Updated: 01/11/2017 14:22 EST ; Life Cycle Date: 01/11/2017 ; Life Cycle Status: Active ; Vocabulary: SNOMED CT Arthritis (SNOMED CT :4116911 ) Name of Problem: Arthritis ; Recorder: LANNY BELLO RN; Confirmation: Confirmed ; Classification: Medical ; Code: 2819149 ; Contributor System: [employer] ; Last Updated: 09/11/2015 14:10 EDT ; Life Cycle Date: 09/11/2015 ; Life Cycle Status: Active ; Vocabulary: SNOMED CT bilateral knee pain (SNOMED CT :38950204 ) Name of Problem: bilateral knee pain ; Recorder: LANNY BELLO RN; Confirmation: Confirmed ; Classification: Medical ; Code: 70275704 ; Contributor System: [employer] ; Last Updated: 08/12/2017 10:18 EDT ; Life Cycle Date: 09/11/2015 ; Life Cycle Status: Active ; Vocabulary: SNOMED CT Chronic depression (SNOMED CT :591140186 ) Name of Problem: Chronic depression ; Recorder: AZALEA ALBRIGHT RN; Confirmation: Confirmed ; Classification: Patient Stated ; Code: 576482167 ; Contributor System: [employer] ; Last Updated: 01/11/2017 14:23 EST ; Life Cycle Date: 01/11/2017 ; Life Cycle Status: Active ; Vocabulary: SNOMED CT Diabetes (SNOMED CT :336048104 ) Name of Problem: Diabetes ; Recorder: LANNY BELLO RN; Confirmation: Confirmed ; Classification: Medical ; Code: 362581753 ; Contributor System: [employer] ; Last Updated: 09/11/2015 14:10 EDT ; Life Cycle Date: 09/11/2015 ; Life Cycle Status: Active ; Vocabulary: SNOMED CT GERD (gastroesophageal reflux disease) (SNOMED CT :219700983 ) Name of Problem: GERD (gastroesophageal reflux disease) ; Recorder: LANNY BELLO RN; Confirmation: Confirmed ; Classification: Medical ; Code: 169317669 ; Contributor System: [employer] ; Last Updated: 09/11/2015 14:11 EDT ; Life Cycle Date: 09/11/2015 ; Life Cycle Status: Active ; Vocabulary: SNOMED CT H/O syncope (SNOMED CT :4334719566 ) Name of Problem: H/O syncope ; Recorder: AZALEA ALBRIGHT RN; Confirmation: Confirmed ; Classification: Patient Stated ; Code: 9230615169 ; Contributor System: Power[employer] ; Last Updated: 01/11/2017 14:29 EST ; Life Cycle Date: 01/11/2017 ; Life Cycle Status: Active ; Vocabulary: SNOMED CT History of recurrent UTIs (SNOMED CT :552963402 ) Name of Problem: History of recurrent UTIs ; Recorder: AZALEA ALBRIGHT RN; Confirmation: Confirmed ; Classification: Patient Stated ; Code: 767691252 ; Contributor System: PowerChart ; Last Updated: 01/11/2017 14:22 EST ; Life Cycle Date: 01/11/2017 ; Life Cycle Status: Active ; Vocabulary: SNOMED CT Hyperlipidemia (SNOMED CT :47162585 ) Name of Problem: Hyperlipidemia ; Recorder: LANNY BELLO RN; Confirmation: Confirmed ; Classification: Medical ; Code: 23892314 ; Contributor System: [employer] ; Last Updated: 09/11/2015 14:10 EDT ; Life Cycle Date: 09/11/2015 ; Life Cycle Status: Active ; Vocabulary: SNOMED CT Renal insufficiency (SNOMED CT :4414644544 ) Name of Problem: Renal insufficiency ; Recorder: AZALEA ALBRIGHT RN; Confirmation: Confirmed ; Classification: Patient Stated ; Code: 0058648528 ; Contributor System: PowerChart ; Last Updated: 01/11/2017 14:22 EST ; Life Cycle Date: 01/11/2017 ; Life Cycle Status: Active ; Vocabulary: SNOMED CT right carpal tunnel (SNOMED CT :98965461 ) Name of Problem: right carpal tunnel ; Recorder: LANNY BELLO RN; Confirmation: Confirmed ; Classification: Medical ; Code: 06322836 ; Contributor System: PowerChart ; Last Updated: 09/02/2017 10:07 EDT ; Life Cycle Date: 09/11/2015 ; Life Cycle Status: Active ; Vocabulary: SNOMED CT Right tennis elbow (SNOMED CT :5938436950 ) Name of Problem: Right tennis elbow ; Recorder: LANNY BELLO RN; Confirmation: Confirmed ; Classification: Medical ; Code: 5153783392 ; Contributor System: PowerChart ; Last Updated: 05/21/2019 14:33 EDT ; Life Cycle Status: Active ; Vocabulary: SNOMED CT ; Comments: 09/11/2015 14:11 - LANNY BELLO RN recent diagnosis RLS (restless legs syndrome) (SNOMED CT :02705074 ) Name of Problem: RLS (restless legs syndrome) ; Recorder: LANNY BELLO RN; Confirmation: Confirmed ; Classification: Medical ; Code: 49499841 ; Contributor System: PowerChart ; Last Updated: 09/11/2015 14:33 EDT ; Life Cycle Date: 09/11/2015 ; Life Cycle Status: Active ; Vocabulary: SNOMED CT sleep apnea with Cpap (SNOMED CT :260180934 ) Name of Problem: sleep apnea with Cpap ; Recorder: LANNY BELLO RN; Confirmation: Confirmed ; Classification: Medical ; Code: 507591026 ; Contributor System: [employer] ; Last Updated: 08/12/2017 11:32 EDT ; Life Cycle Date: 09/11/2015 ; Life Cycle Status: Active ; Vocabulary: SNOMED CT Stress incontinence (SNOMED CT :590509114 ) Name of Problem: Stress incontinence ; Recorder: LANNY BELLO RN; Confirmation: Confirmed ; Classification: Medical ; Code: 048904348 ; Contributor System: PowerChart ; Last Updated: 09/11/2015 14:12 EDT ; Life Cycle Date: 09/11/2015 ; Life Cycle Status: Active ; Vocabulary: SNOMED CT Diagnoses(Active) Chest pain Date: 09/08/2020 ; Diagnosis Type: Reason For Visit ; Confirmation: Complaint of ; Clinical Dx: Chest pain ; Classification: Medical ; Clinical Service: Emergency medicine ; Code: PNED ; Probability: 0 ; Diagnosis Code: [id number] ED Height and Weight Height Source : Estimated Height Entry Format : [place] Height, Feet : 5 ft(Converted to: 152 cm, 60 Inch) Height, Inches : 5 Inch(Converted to: 0 ft 5 Inch, 12.70 cm) Clinical Height : 165.1 cm Weight Source, ED : Critical estimated dosing weight Weight Entry Format : [place] Weight, Pounds : 190 lb Clinical Dosing Weight : 86.36 kg Body Surface Area (BSA) : 1.94 m2 Body Mass Index : 31.7 kg/m2 (HI) [place] Body Weight (IBW) : 56.59 kg RUSTY HART, RN - 09/08/2020 15:26 EDT documented in this encounter Plan of Treatment Not on file documented as of this encounter Visit Diagnoses Not on filedocumented in this encounter Care Teams Transport Rn Relationship Specialty Start Date End Date Taina Lyles, STATE GAME PROTECTOR [address] [place] [address] PCP - General Nurse Practitioner 06/15/23 documented as of this encounter
--- OUTSIDE RECORDS SUMMARY | 2025-11-11 23:06 | XMS_ITS | Encounter Summary ---
Author Organization [employer] ([place], [place], [place], [place], [place]) Address [address] [place] [address] Care Team Providers Care Branch Services Manager Name Role Phone Trupti Taina Burt APRN Primary Care Provider [phone] Encounter Details Date Type Department Care Team (Late st Contact Info) Description 09/08/2020 Transcribed Document [facility] [place] [address] [place] [address] ProviderWilliam MD [address] [place], [place] [address] Social History Tobacco Use Types Packs/Day Years [...] filedocumented in this encounter Care Teams Branch Services Manager Relationship Specialty Start Date End Date Taina Lyles, PRESS SETTER [address] [place] [address] PCP - General Nurse Practitioner 06/15/23 documented as of this encounter
--- OUTSIDE RECORDS SUMMARY | 2025-11-11 23:06 | XMS_ITS | Encounter Summary ---
Author Organization [facility] Address [address] [place] [address] Care Team Providers Care Web Site Manager Name Role Phone Lea Fernando Unavailable [phone] Rachel Ray RN Unavailable [phone] Tamera Isabel LPN Unavailable [facility] Lillie Washburn MD Primary Care Provider [phone] Encounter Details Date Type Department Care Team (Latest Contact Info) Description 10/10/2025 Travel Social History Tobacco Use Types Packs/Day [...] How often do you attend [facility] or yazdanism services? Never 05/29/2025 Do you [...] drinks on one occasion? Never 09/03/2025 [facility] [...] living in a alf (including now)? No 10/11/2025 [facility] Utilities Answer Date Recorded In the past 12 months has th e [employer], gas, oil, or water company threatened to [...] drink first t kennedy in the morning (EYE-LIVESTOCK EXHIBITOR) to steady your nerves or to get [...] A Interventional Radiology [address] [place] [address] 11/13/2025 2:00 PM EST Appointment [facility] Inter[facility] Radiology [address] [place] [address] 11/20/2025 11:45 AM EST Appointment [facility] [address] [place] [address] 11/20/2025 12:45 PM EST Appointment [facility] Inter[facility] Radiology [address] [place] [address] 11/22/2025 1:00 PM EST Office Visit [facility] [address] [place] [address] [place] [address] Barrie Peterson MD [address] [place] [address] 11/28/2025 10:00 AM EST Appointment [facility] Inter[facility] Radiology [address] [place] [address] 11/28/2025 11:00 AM EST Appointment [facility] [address] [place] [address] 12/05/2025 10:00 AM EST Appointment [facility] [address] [place] [address] 12/05/2025 11:00 AM EST Appointment [facility] Interventional Radiology [address] [place] [address] 12/20/2025 11:00 AM EST Office Visit [facility] Endocrinology [address] [place] [address] Miranda Hobson, DYNAMICS AX TECHNICAL ARCHITECT [address] [place] [id number] 03/07/2026 9:00 AM EDT Office Visit [facility] [address] [place] [address] Grover Little MD [address] [place] [address] documented as of this encounter Visit Diagnoses [...] documented as of this encounter Care Teams Web Site Manager Relationship Specialty Start Date End Date Lillie Pritchard MD [address] [place] [address] PCP - General Family Medicine 09/03/25 Lea Fernando [address] [place] [address] Artist Relationship Manager Endocrinology 08/29/24 Rachel Ray, RN [address] [facility] [address] [place] [address] Nurse Practitioner Gastroenterology 09/24/24 Tamera Isabel LPN VALUE-BASED TRANSFORMATION PROGRAM None Licensed Practical Nurse 05/29/25 documented as of this encounter
--- OUTSIDE RECORDS SUMMARY | 2025-11-11 23:06 | XMS_ITS | Encounter Summary ---
Author Organization [employer] ([place], [place], [place], [place], [place]) Address [address] [place] [address] Care Team Providers Care Assistant Plant Manager Name Role Phone Taina Lyles APRN Primary Care Provider [phone] Encounter Details Date Type Department Care Team (Late st Contact Info) Description 01/24/2019 Transcribed Document [facility] [place] [facility] [place] [address] ProviderWilliam MD [address] [place] [address] Social History Tobacco Use Types Packs/Day Years Used Date Smoking Tobacco: Never Assessed Comments Unknown Sex and Gender Information Value Date Recorded Sex Assigned at Not on file Legal Sex Female 12:21 PM CDT Gender Identity Not on file Sexual Orientation Not on file documented as of this encounter Miscellaneous Notes * Cerner Conversion Note - William Reyes MD - 01/24/2019 7:43 PM BROADCAST CHIEF ENGINEER [address] [address] DISCHARGE SUMMARY PATIENT IDENTIFICATION: MONIKA ZIMMER (Female - 1960) ACCOUNT / UNIT NUMBER: [id number] / [id number] PRIMARY CARE PHYSICIAN: ERYN HOWARD APRN PATIENT LOCATION: [facility] 030- ADMIT DATE / TIME: 01/23/19 1051 DISCHARGE [...] U-500 could be resumed on discharge. Continue [place] [employer] diet. 3. Coronary artery disease/dyslipidemia, [...] Tylenol 650 q.4 h. as needed. 2. [place] 10 mg 1-2 tabs q.4 h. as [...] minutes. Dictated By: DANIEL DICKERSON E-Signed By: , AXEL/AMINA [id number] [\R\ rep ct labl] [\R\ rep ct ivnm] Electronically signed by Maddie Meyers Conversion Export Traffic Department Manager Cerner at 02/21/2023 1:44 PM CDT documented in this encounter Plan of Treatment Not on file documented as of this encounter Visit Diagnoses Not on filedocumented in this encounter Care Teams Assistant Plant Manager Relationship Specialty Start Date End Date Taina Lyles, ADRI [address] [place] [address] PCP - General Nurse Practitioner 06/15/23 documented as of this encounter
--- OUTSIDE RECORDS SUMMARY | 2025-11-11 23:06 | XMS_ITS | Encounter Summary ---
Author Organization [facility] Address [address] [place] [address] Care Team Providers Care Interlocking Machine Operator Name Role Phone Lea Fernando Unavailable [phone] Rachel Ray RN Unavailable [phone] Tamera Isabel LPN Unavailable [facility] Lillie Washburn MD Primary Care Provider [phone] Encounter Details Date Type Department Care Team (Latest Contact Info) Description 10/11/2025 Travel Social History Tobacco Use Types Packs/Day [...] do you attend chur or baptist services? Patient unable to answer [...] week 05/29/2025 How often do you attend [facility] or baptist services? Never 05/29/2025 Do you [...] more drinks on one occasion? Never 09/03/2025 [employer] [facility] Occupat ional Health - Occupational Stress [...] living in a fci (including now)? No 10/11/2025 [facility] Utilities Answer Date Recorded In the past 12 months has th e [employer], gas, oil, or water company threatened to [...] drink first t kennedy in the morning (EYE-DOWN FILLER) to steady your nerves or to [...] Question Answer Date of Assessment Author Precautions None 10/11/2025 10:00 PM Artur Huff RN * Calculated C-SSRS Risk Score (Lifetime/Recent) Answer Date of Assessment Author No Risk Indicated 10/11/2025 8:00 AM Taina Ahmadi RN * Question Answer Date of Assessment Author 1. Wish to be (Past 1 Month) No 025 8:00 AM Taina Ahmadi RN 2. Non-Specific Active Suici liz Thoughts (Past 1 Month) No 10/11/2025 8:00 AM Taina Ahmadi RN 6. Suicidal Behavior (Lifetime) No 8:00 AM Taina Ahmadi RN documented as of this encounter Mental Status * Question Answer Entry Date Author Precautions None 10/11/2025 10:00 PM Artur Huff RN documented in this encounter Plan of Treatment Upcoming Encounters Date Type Department Care Team (Late st Contact Info) Description 11/13/2025 1:00 PM EST Appointment [facility] [address] [place] [address] 11/13/2025 2:00 PM EST Appointment [facility] [address] [place] [address] 11/20/2025 11:45 AM EST Appointment [facility] [address] [place] [address] 11/20/2025 12:45 PM EST Appointment [facility] [address] [place] [address] 11/22/2025 1:00 PM EST Office Visit [facility] [address] [place] [address] Barrie Peterson MD [address] [place] [address] 11/28/2025 10:00 AM EST Appointment [facility] [address] [place] [address] 11/28/2025 11:00 AM EST Appointment [facility] Inter[facility] Radiology [address] [facility] [place] [address] 12/05/2025 10:00 AM EST Appointment [facility] Inter[facility] Radiology [address] [facility] [place] [address] 12/05/2025 11:00 AM EST Appointment [facility] Radiology [address] [place] [address] 12/20/2025 11:00 AM EST Office Visit [facility] Endocrinology [address] [place] [address] Miranda Hobson P, SALT REFINER [address] [place] [address] 03/07/2026 9:00 AM EDT [facility] [address], [address] [place] [address] Grover Little MD [address] [place] [address] documented as of this encounter [...] documented as of this encounter Care Teams Interlocking Machine Operator Relationship Specialty Start Date End Date Lillie Pritchard MD [address] [place] [phone] PCP - General Family Medicine 09/03/25 Lea Fernando [address] [facility] [address] [place] [address] Shredder Picker Endocrinology 08/29/24 Rachel Ray, RN [address] [facility] [address] [place] [address] Nurse Practitioner Gastroenterology 09/24/24 Tamera Isabel LPN VALUE-BASED TRANSFORMATION PROGRAM None Licensed Practical Nurse 05/29/25 documented as of this encounter
--- OUTSIDE RECORDS SUMMARY | 2025-11-11 23:06 | XMS_ITS | Encounter Summary ---
Author Organization [employer] ([place], [place], [place], [place], [place]) Address [address] [place] [address] Care Team Providers Care Assistant Foreman Name Role Phone Taina Lyles ADRI Primary Care Provider [phone] Encounter Details Date Type Department Care Team (Late st Contact Info) Description 09/08/2020 Transcribed Document [facility] Family Medicine [address] [place] [address] ProviderWilliam MD [address] [place], [place] [id number] Social History Tobacco Use Types Packs/Day Years [...] Tab, Oral, QAM, 30 Tab, 0 Refill(s) [place] 7.5 mg-325 mg oral tablet: 1 Tab, [...] list: All Problems Anxiety / SNOMED CT 1393872187 / Confirmed Arthritis / SNOMED CT 3751145 / Confirmed ADD (attention deficit disorder) / SNOMED CT 9104839159 / Confirmed right carpal tunnel / SNOMED CT 85057231 / Confirmed Chronic depression / SNOMED CT 311393028 / Confirmed Diabetes / SNOMED CT 972107227 / Confirmed GERD (gastroesophageal reflux disease) / SNOMED CT 172974295 / Confirmed Stress incontinence / SNOMED CT 213150561 / Confirmed History of recurrent UTIs / SNOMED CT 438950970 / Confirmed H/O syncope / SNOMED CT 9938642692 / Confirmed Hyperlipidemia / SNOMED CT 77197981 / Confirmed bilateral knee pain / SNOMED CT 51862773 / Confirmed Right tennis elbow / SNOMED CT 0851702528 / Confirmed recent diagnosis Renal insufficiency / SNOMED CT 1588657806 / Confirmed RLS (restless legs syndrome) / SNOMED CT 06606709 / Confirmed sleep apnea with Cpap / SNOMED CT 233356347 / Confirmed, Active Problems (16) ADD (attention [...] EDT Height Source Estimated Height Entry Format Kelly Height/Length, SERBIAN (ft) 5 ft Height/Length SERBIAN 5 Inch CLINICALHEIGHT 165.1 cm [place] Body Weight 56.59 kg Weight Source, ED Critical estimated dosing weight Weight Entry Format Kelly Weight Chadian lb 190 lb CLINICALWEIGHT 86.36 kg Body [...] 97 (SEP 08 16:00) SpO2 97 (SEP 08 17:54) 96 (SEP 08 16:30) 98 (SEP 08:26) [...] filedocumented in this encounter Care Teams Assistant Foreman Relationship Specialty Start Date End Date Taina Lyles, ENTERPRISE APPLICATION ANALYST [address] [place] [address] PCP - General Nurse Practitioner 06/15/23 documented as of this encounter
--- OUTSIDE RECORDS SUMMARY | 2025-11-11 23:06 | XMS_ITS | Encounter Summary ---
Author Organization [employer] ([place], [place], [place], [place]) Address [address] [place] [address] Care Team Providers Care Merchant Police Name Role Phone Taina Lyles ADRI Primary Care Provider [phone] Encounter Details Date Type Department Care Team (Late st Contact Info) Description 07/01/2021 Transcribed Document [facility] [place] Medicine [address] [place] [address] ProviderWilliam MD [address] [place] [id number] Social History Tobacco Use Types Packs/Day Years [...] : Low risk (0) [place] Interventions : [place] precautions for safety used Medina Lai RN - 07/01/2021 17:31 EDT Electronically signed by Maddie Meyers Conversion Organic Extractions Technician Cerner at 03/07/2023 9:46 AM CDT documented in this encounter Plan of Treatment Not on file documented as of this encounter Visit Diagnoses Not on filedocumented in this encounter Care Teams Merchant Police Relationship Specialty Start Date End Date Taina Lyles, METAL HANGER [address] [place] [address] PCP - General Nurse Practitioner 06/15/23 documented as of this encounter
--- OUTSIDE RECORDS SUMMARY | 2025-11-11 23:06 | XMS_ITS | Encounter Summary ---
Author Organization [facility] Address [address] [place] [address] Care Team Providers Care Rn Care Manager Name Role Phone Lea Fernando Unavailable [phone] Rachel Ray RN Unavailable [phone] Tamera Isabel LPN Unavailable Unavailabl e Lillie Pritchard MD Primary Care Provider [phone] Wilma Esqueda LPN Unavailable Unavailab le Reason for Visit * Reason Comments TCM Encounter Details Date Type Department Care Team (Late st Contact Info) Description 10/25/2025 Patient Outreach [facility] [address] [place] [address] Wilma Esqueda LPN [facility] None TCM Social History Tobacco Use Types Packs/Day [...] o r organizations such as bahai groups, [employer], [employer] or athletic groups, or school groups? Patient [...] week 05/29/2025 How often do you attend [facility] or episcopal services? Never 05/29/2025 Do you belong to any clubs o r organizations such as bahai groups, unions, [employer] or athletic groups, or school groups? No [...] more drinks on one occasion? Never 09/03/2025 [facility] Occupat ional Health - [...] in a retirement (including now)? No 10/11/2025 [facility] Utilities Answer Date Recorded In the past 12 months has th e [employer], gas, oil, or water [employer] threatened to shut off services in your [...] drink first t kennedy in the morning (EYE-SHOVEL HANDLE ASSEMBLER) to steady your nerves or to [...] encounter Miscellaneous Notes * Progress Notes - Wilma Esqueda LPN - 10/25/2025 12:33 PM EST Admit Date: 10/10/2025 Discharge Date: 10/23/2025 Hospital Service: [facility] Discharge Diagnosis: Shock 10/25/2025 TCM call # 1 Patient Reached: N/A Outcome: Spoke with Koki at [facility]. Koki states that patient is followed by in house provider at facility and that no follow up appointment is needed with pcp. Full assessment, medication review, and sdoh needs not completed at time of call. Action: N/A Medication changes: Per AVS: Start: acetaminophen 500 MG tablet Commonly known as: Tylenol Take 1 tablet by mouth every 8 hours as needed for pain, headaches or fever hydrocortisone 5 MG tablet Commonly known as: Cortef Take 1 tablet by mouth every evening AND 4 tablets 1 (one) time each day at the same time nystatin cream Commonly known as: Mycostatin Apply to vulvovaginal region twice daily for 7 days sodium bicarbonate 650 MG tablet Take 1 tablet by mouth 4 times a day Change: insulin glargine-yfgn 100 UNIT/ML injection vial Inject 40 Units under the skin daily. Start taking on: October 24, 2025 * insulin lispro 100 UNIT/ML injection Commonly known as: Admelog Inject 0-10 Units under the skin 3 times a day with meals. See After Visit Summary for instructionson how to take your insulin. * Insulin Lispro 100 UNIT/ML injection vial Commonly known as: Admelog, HumaLOG Inject 10 Units under the skin 3 times a day with meals midodrine 5 MG tablet Commonly known as: Proamatine Take 1 tablet by mouth 3 times a day. [facility] appointment: N/A Items to address at [facility]: N/A documented in this encounter Plan of Treatment Upcoming Encounters Date Type Department Care Team (Late st Contact Info) Description 11/13/2025 1:00 PM EST Appointment [facility] Interventional Radiology [address] [place] [address] 11/13/2025 2:00 PM EST Appointment [facility]iology [address] [place] [address] 11/20/2025 11:45 AM EST Appointment [facility] [address] [place] [address] 11/20/2025 12:45 PM EST Appointment [facility] Radiology [address] [place] [address] 11/22/2025 1:00 PM EST Office Visit [facility] [address] [place] [address] Barrie Peterson MD [address] [place] [address] 11/28/2025 10:00 AM EST Appointment [facility] Interventional Radiology [facility] [place] [address] 11/28/2025 11:00 AM EST Appointment [facility] Radiology [address] [place] [address] 12/05/2025 10:00 AM EST Appointment [facility] Radiology [address] [place] [address] 12/05/2025 11:00 AM EST Appointment [facility] Inter[facility] Radiology [address] [place] [address] 12/20/2025 11:00 AM EST Office [facility] Endocr[facility] [address] [place] [address] Miranda Hobson, SALES FACILITATOR [address] [place] [address] 03/07/2026 9:00 AM EDT Office Visit [facility] Medicine Specialties [address] [place] [address] Grover Little MD [address] [place] [address] documented as of this encounter Visit Diagnoses [...] as of this encounter Care Teams Rn Care Manager Relationship Specialty Start Date End Date Lillie Pritchard MD [address] [place] [phone] PCP - General Family Medicine 09/03/25 Lea Fernando [address] [place] [address] Thread Grinder Endocrinology 08/29/24 Rachel Ray, RN [address] [phone] Nurse Practitioner Gastroenterology 09/24/24 Tamera Isabel LPN VALUE-BASED TRANSFORMATION PROGRAM None Licensed Practical Nurse 05/29/25 Wilma Esqueda LPN [facility] None TCM Nurse 10/25/25 10/25/25 documented as of this encounter
--- OUTSIDE RECORDS SUMMARY | 2025-11-11 23:06 | XMS_ITS | Encounter Summary ---
Author Organization [employer] ([place], [place], [place], [place]) Address [address] [place] [address] Care Team Providers Care Support Assistant Name Role Phone Taina Lyles APRN Primary Care Provider [phone] Encounter Details Date Type Department Care Team (Late st Contact Info) Description 01/23/2019 Transcribed Document [facility] [place] [address] [place] [address] ProviderWilliam MD [address] [place] [address] Social History Tobacco Use Types Packs/Day Years Used Date Smoking Tobacco: Never Assessed Comments Unknown Sex and Gender Information Value Date Recorded Sex Assigned at Not on file Legal Sex Female 12:21 PM CDT Gender Identity Not on file Sexual Orientation Not on file documented as of this encounter Miscellaneous Notes * Cerner Conversion Note - William Reyes MD - 01/23/2019 5:18 PM SENIOR UI SOFTWARE ENGINEER [address] [address] HISTORY AND PHYSICAL PATIENT IDENTIFICATION: MONIKA ZIMMER (Female - 1960) ACCOUNT / UNIT NUMBER: [id number] / [id number] PRIMARY CARE PHYSICIAN: WILMA HOWARD APRN PATIENT LOCATION: [facility] 300-11 ADMIT DATE / TIME: 01/23/19 1051 DISCHARGE DATE / TIME: DICTATED: 01/23/19 1218 by DANIEL DICKERSON TRANSCRIBED: 01/23/19 1343 by AMINA IMPORTED: 01/23/19 1344 CC: WILMA HOWARD APRN; [...] in bed. She is in observation the [facility] floor under the care of [...] 0.4 mg sublingual for chest pain. 16. [place] 10/325 mg 1-2 tabs q.4 h. as [...] LABORATORIES AND DIAGNOSTICS: Reviewed from 01/08/2019 at [facility] showing a GFR of 57. Normal [...] TIME SPENT: 30 minutes. Dictated By: DANIEL DICKERSON-Signed By: , AXEL/AMINA 1218 1343 [\R\ rep ct labl] [\R\ rep ct ivnm] Electronically signed by Luigi, [facility] Conversion Assistant Professor Of Dietetics Cerner at 02/21/2023 1:44 PM CDT documented in this encounter Plan of Treatment Not on file documented as of this encounter Visit Diagnoses Not on filedocumented in this encounter Care Teams Support Assistant Relationship Specialty Start Date End Date Taina Lyles, ADRI [address] [place] [address] PCP - General Nurse Practitioner 06/15/23 documented as of this encounter
--- OUTSIDE RECORDS SUMMARY | 2025-11-11 23:06 | XMS_ITS | Encounter Summary ---
Author Organization [facility] Address [address] [place] [address] Care Team Providers Care Veterinary Technician Assistant Name Role Phone Lea Fernando Unavailable [phone] Rachel Ray RN Unavailable [phone] Alvarez Zimmer MD Primary Care Provider [phone] Tamera Isabel ASSOCIATE PROFESSOR OF ECONOMICS Unavailable UnavailShaniqua Lomeli ASSOCIATE PROFESSOR OF ECONOMICS Unavailable Unavailable Lillie Pritchard MD Primary Care Provider [phone] Reason for Visit * Reason Onset Date Comments HCN - Patient Message 08/16/2025 Encounter Details Date Type Department Care Team (Late st Contact Info) Description 08/16/2025 Telephone [facility] Endocrinology [address] [place] [address] Sharif Moreno, ROSY [address] [place] [address] HCN - Patient Message Social [...] How often do you attend [facility] or pentecostalism services? Patient unable to answer [...] do you attend [facility] or pentecostalism services? Never 05/29/2025 Do you belong to [...] one occasion? Never 09/03/2025 [facility] of Occupat ional Health - [...] a skilled nursing (including now)? No 08/19/2025 [facility] Utilities Answer Date Recorded In the past [...] first t kennedy in the morning (EYE-CONSTRUCTION ESTIMATOR) to steady your nerves or to get [...] Assessment Author Precautions Fall risk;Environmen rodo surveillance 08/20/2025 8:00 AM EDT Laverne Booth RN * AUDIT-C Score Answer Date of Assessment [...] 09/03/2025 8:53 AM Bari Shankar CNA * Question Answer Date of Assessment Author Precautions Fall risk;Deonte rodo surveillance 08/20/2025 8:00 AM Laverne Luong RN * Over the past 2 weeks, [...] Nearly every day 09/03/2025 8:56 AM Bari Shaknar CNA Poor appetite or overeating Nearly every [...] so slowly that other people could have noticed. Or the opposite - being so fidgety or restless that you have been moving around a lot more than usual More than half the days 09/03/2025 8:56 AM Bari Shankar CNA Thoughts that you would be better off or hurting yourself in some way Several days 09/03/2025 8:56 AM Bari Shankar CNA Patient Health Questionnaire-9 Score 24 09/03/2025 8:56 AM EDT Bari Mancini CNA * Calculated C-SSRS Risk Score (Lifetime/Recent) [...] 1 Month) No 025 8:59 AM EDT Bari Mancini CNA 2. Non-Specific Active Suici liz Thoughts (Past 1 Month) No 09/03/2025 8:59 AM EDT Latricia Mancini CNA 6. Suicidal Behavior (Lifetime) No 8:59 AM EDT Bari Mancini CNA documented as of this encounter Mental Status * Question Answer Entry Date Author Precautions Fall risk;Environmen rodo surveillance 08/20/2025 8:00 AM EDT Laverne Booth RN documented in this encounter Miscellaneous Notes * Telephone Encounter - Kierra Carroll - 08/16/2025 11:20 AM EDT Patient Phone Message Reason for Call: Pt is requesting a call to rs.. Best contact number and optimal time of day to reach caller: [phone] Note: Please do not reply to this [...] Appointment [facility] [address] [place] [address] 11/13/2025 2:00 PM EST Appointment [facility] [address] [place] [address] 11/20/2025 11:45 AM EST Appointment [facility] [address] [place] [address] 11/20/2025 12:45 PM EST Appointment [facility] Rad[facility] [address] [place] [address] 11/22/2025 1:00 PM EST Office Visit [facility] [address] [facility] [address] [place] [address] Barrie Peterson MD [address] [place] [address] 11/28/2025 10:00 AM EST Appointment [facility] [address] [place] [address] 11/28/2025 11:00 AM EST Appointment [facility] [address] [place] [address] 12/05/2025 10:00 AM EST Appointment [facility] [address] [place] [address] 12/05/2025 11:00 AM EST Appointment [facility] [address] [place] [address] 12/20/2025 11:00 AM EST [facility] [address] [place] [address] Miranda Hobson P, CUT AND PRINT MACHINE OPERATOR [address] [address] 03/07/2026 9:00 AM EDT Office Visit [facility] [address] [place] [address] Grover Little MD [address] [place] [address] documented as of this encounter [...] as of this encounter Care Teams Veterinary Technician Assistant Relationship Specialty Start Date End Date Alvarez Zimmer MD [address] [place] [address] PCP - General Family Medicine 12/07/24 09/02/25 Lillie Pritchard MD [address] [place] [address] PCP - General Family Medicine 09/03/25 Lea Fernando [address] [facility] [address] [place] [address] Visual Effects Editor Endocrinology 08/29/24 Rachel Ray, RN [address] [place] [address] Nurse Practitioner Gastroenterology 09/24/24 Tamera Isabel LPN VALUE-BASED TRANSFORMATION PROGRAM None Licensed Practical Nurse 05/29/25 Shaniqua Trevino LPN None None TCM Nurse 08/21/25 09/20/25 documented as of this encounter
--- OUTSIDE RECORDS SUMMARY | 2025-11-11 23:06 | XMS_ITS | Encounter Summary ---
Author Organization [employer] ([place], [place], [place], [place]) Address [address] [place] [address] Care Team Providers Care Certified Nuclear Medicine Technologist Name Role Phone Taina Lyles ADRI Primary Care Provider [phone] Encounter Details Date Type Department Care Team (Late st Contact Info) Description 07/01/2021 Transcribed Document [facility] Family [facility] [place] [address] ProviderWilliam MD [address] [place], [place] [id number] Social History Tobacco Use Types Packs/Day Years [...] Communication Barrier : None Primary Language : [place] Any Spiritual/Cultural Needs or Requests : No [...] filedocumented in this encounter Care Teams Certified Nuclear Medicine Technologist Relationship Specialty Start Date End Date Taina Lyles, PRESCHOOL ASSISTANT TEACHER [address] [place] [address] PCP - General Nurse Practitioner 06/15/23 documented as of this encounter
--- OUTSIDE RECORDS SUMMARY | 2025-11-11 23:06 | XMS_ITS | Encounter Summary ---
Author Organization [facility] Address [address] [place] [address] Care Team Providers Care Barbecue Cook Name Role Phone Lea Fernando Unavailable [phone] Rachel Ray RN Unavailable [phone] Tamera Isabel LPN Un[facility] Lillie Washburn MD Primary Care Provider [phone] Encounter Details Date Type Department Care Team (Latest Contact Info) Description 10/23/2025 Travel Social History Tobacco Use Types Packs/Day [...] How often do you attend chur or yarsanism services? Patient unable to answer [...] week 05/29/2025 How often do you attend [facility] or yarsanism services? Never 05/29/2025 Do you [...] more drinks on one occasion? Never 09/03/2025 [facility] [...] living in a jail (including now)? No 10/11/2025 [facility] Utilities Answer Date Recorded In the past 12 months has th e [employer], gas, oil, or water company threatened to [...] drink first t kennedy in the morning (EYE-SAP BPC ARCHITECT) to steady your nerves or to [...] * Question Answer Date of Assessment Author Paulo Environmental surveillance;Fall risk 10/23/2025 4:00 PM Alvarez England RN * Calculated C-SSRS Risk Score (Lifetime/Recent) Answer Date of Assessment Author No Risk Indicated 10/23/2025 4:00 PM Alvarez England RN * Question Answer Date of Assessment Author 1. Wish to be (Past 1 Month) No 025 4:00 PM Alvarez England RN 2. Non-Specific Active Suici liz Thoughts (Past 1 Month) No 10/23/2025 4:00 PM Gabino England RN 6. Suicidal Behavior (Lifetime) No 4:00 PM Alvarez England RN documented as of this encounter Mental Status * Question Answer Entry Date Author Precautions Environmental surveillance;Fall risk 10/23/2025 4:00 PM Alvarez England RN documented in this encounter Plan of Treatment Upcoming Encounters Date Type Department Care Team (Late st Contact Info) Description 11/13/2025 1:00 PM EST Appointment [facility] Interventional Radiology [address] [place] [address] 11/13/2025 2:00 PM EST Appointment [facility] Interventional Radiology [address] [place] [address] 11/20/2025 11:45 AM EST Appointment [facility] Interventional Radiology [address] [place] [address] 11/20/2025 12:45 PM EST Appointment [facility] Interventional Radiology [address] [place] [address] 11/22/2025 1:00 PM EST Office Visit [facility] [address] [place] [address] Barrie Peterson MD [address] [place] [address] 11/28/2025 10:00 AM EST Appointment [facility] Interventional Radiology [address] [place] [address] 11/28/2025 11:00 AM EST Appointment [facility] Interventional Radiology [address] [facility] [place] [address] 12/05/2025 10:00 AM EST Appointment [facility] Interventional Radiology [address] [facility] [place] [address] 12/05/2025 11:00 AM EST Appointment [facility] Interventional Radiology [address] [place] [address] 12/20/2025 11:00 AM EST Office Visit [facility] Endocrinology [address] [place] [address] Miranda Hobson P, HIGH SCHOOL MUSIC INSTRUCTOR [address] [place] [address] 03/07/2026 9:00 AM EDT Office Visit [facility] [address] [place] [address] Grover Little MD [address] [place] [address] documented as of this encounter [...] documented as of this encounter Care Teams Barbecue Cook Relationship Specialty Start Date End Date Lillie Pritchard MD [address] [place] [address] [phone] PCP - General Family Medicine 09/03/25 Lea Fernando [address] [facility] [address] [place] [address] Gauntlet Pairer Endocrinology 08/29/24 Rachel Ray, RN [address] [facility] [address] [place] [address] Nurse Practitioner Gastroenterology 09/24/24 Tamera Isabel LPN VALUE-BASED TRANSFORMATION PROGRAM None Licensed Practical Nurse 05/29/25 documented as of this encounter
--- OUTSIDE RECORDS SUMMARY | 2025-11-11 23:06 | XMS_ITS | Encounter Summary ---
Author Organization [facility] Address [address] [place] [address] Care Team Providers Care Dental Laboratory Technician Name Role Phone Lea Fernando Unavailable [phone] Rachel Ray RN Unavailable [phone] Tamera Isabel LPN Un[facility] Lillie Washburn MD Primary Care Provider [phone] Encounter Details Date Type Department Care Team (Latest Contact Info) Description 10/30/2025 Travel Social History Tobacco Use Types Packs/Day [...] do you attend chur or rastafari services? Patient unable to answer [...] [facility]? Never 05/29/2025 Do you [...] more drinks on one occasion? Never 09/03/2025 [facility] of Occupat ional [...] living in a usp (including now)? No 10/11/2025 [facility] Utilities Answer Date Recorded In the past 12 months has th e [employer], gas, oil, or water company threatened to [...] drink first t kennedy in the morning (EYE-PHYSICIAN GENERAL INTERNAL MEDICINE) to steady your nerves or to get [...] Appointment [facility] Interventional Radiology [address] [place] [address] 11/13/2025 2:00 PM EST Appointment [facility] Interventional Radiology [address] [place] [address] 11/20/2025 11:45 AM EST Appointment [facility] Interventional Radiology [address] [place] [address] 11/20/2025 12:45 PM EST Appointment [facility] Interventional Radiology [address] [place] [address] 11/22/2025 1:00 PM EST Office Visit [facility] [address] [place] [address] [place] [address] Barrie Peterson MD [address] [place] [address] 11/28/2025 10:00 AM EST Appointment [facility] Interventional Radiology [address] [place] [address] 11/28/2025 11:00 AM EST Appointment [facility] Interventional Radiology [address] [place] [address] 12/05/2025 10:00 AM EST Appointment [facility] Interventional Radiology [address] [place] [address] 12/05/2025 11:00 AM EST Appointment [facility] Interventional Radiology [address] [place] [address] 12/20/2025 11:00 AM EST Office Visit [facility] Endocrinology [address] [place] [address] Miranda Hobson, INDUSTRIAL RADIOGRAPHER [address] [facility] [address] [place] [address] 03/07/2026 9:00 AM EDT Office Visit [place] [facility] [address] [place] [address] Grover Little MD [address] [place] [address] documented as of this encounter Visit Diagnoses [...] as of this encounter Care Teams Dental Laboratory Technician Relationship Specialty Start Date End Date Lillie Pritchard MD [address] [place] [address] [phone] PCP - General Family Medicine 09/03/25 Lea Fernando [address] [facility] [address] [place] [address] Windshield Technician Endocrinology 08/29/24 Rachel Ray, RN [address] [address] Nurse Practitioner Gastroenterology 09/24/24 Tamera Isabel LPN VALUE-BASED TRANSFORMATION PROGRAM None Licensed Practical Nurse 05/29/25 documented as of this encounter
--- OUTSIDE RECORDS SUMMARY | 2025-11-11 23:06 | XMS_ITS | Encounter Summary ---
Author Organization [employer] ([place], [place], [place], [place], [place]) Address [address] [place] [address] Care Team Providers Care Athletic Coordinator Name Role Phone Adarshfaith Taina Burt APRN Primary Care Provider [phone] Encounter Details Date Type Department Care Team (Late st Contact Info) Description 09/11/2020 Transcribed Document [facility] Family Medicine [address] [place] [address] ProviderWilliam MD [address] [place], [place] [address] Social History Tobacco Use Types Packs/Day Years [...] on filedocumented in this encounter Care Teams Athletic Coordinator Relationship Specialty Start Date End Date Taina Lyles, JOSS HOUSE KEEPER [address] [place] [address] PCP - General Nurse Practitioner 06/15/23 documented as of this encounter
--- OUTSIDE RECORDS SUMMARY | 2025-11-11 23:06 | XMS_ITS ---
Author Organization [facility] Address [address] [place] [address] Care Team Providers Care Ward Helper Name Role Phone Lea Fernando Unavailable [phone] Rachel Ray RN Unavailable [phone] Tamera Isabel LPN Unavailable [facility] Lillie Washburn MD Primary Care Provider [phone] Transitional Care Management Status:Closed (Closed) Program category:Transitional Care Management - [facility] Start date:10/25/2025 Enrollment reason:Identified using hospital discharge data End date:10/25/2025 Close reason:Not Eligible Overview This episode type is for outpatient care managers enrolling patients in the [facility] Transitional Care Management program. Continued Care and Services Coordination
--- OUTSIDE RECORDS SUMMARY | 2025-11-11 23:06 | XMS_ITS | Encounter Summary ---
Author Organization [facility] Address [address] [place] [address] Care Team Providers Care Blender Operator Name Role Phone Lea Fernando Unavailable [phone] Rachel Ray RN Unavailable [phone] Tamera Isabel LPN Unavailable Unavailabl e Lillie Pritchard MD Primary Care Provider [phone] Encounter Details Date Type Department Care Team (Late st Contact Info) Description 10/10/2025 Orders Only External Location [address] [place] [address] Provider, External Social History Tobacco Use Types [...] How often do you attend [facility] or baptist services? Patient unable to [...] more drinks on one occasion? Never 09/03/2025 [facility] of Occupat ional [facility] - Occupational Stress Questionnaire Answer Date Recorded [...] in a nursing home (including now)? No 10/11/2025 [facility] Utilities Answer Date Recorded [...] drink first t kennedy in the morning (EYE-BOILERMAKER APPRENTICE) to steady your nerves or to [...] Answer Date of Assessment Author Paulo Environmental surveillance 10/14/2025 8:0 0 AM Rowan Monge RN * Calculated C-SSRS Risk Score (Lifetime/Recent) Answer Date of Assessment Author No Risk Indicated 10/14/2025 8:00 AM Rowan Nathan RN * Question Answer Date of Assessment Author 1. Wish to be (Past 1 Month) No 025 8:00 AM Rowan Monge RN 2. Non-Specific Active Suici liz Thoughts (Past 1 Month) No 10/14/2025 8:00 AM Pepper Monge RN 6. Suicidal Behavior (Lifetime) No 8:00 AM Rowan Monge RN documented as of this encounter Mental Status * Question Answer Entry Date Author Paulo Environmental surveillance 10/14/2025 8:0 0 AM Rowan Monge RN documented in this encounter Plan of Treatment Upcoming Encounters Date Type Department Care Team (Late st Contact Info) Description 11/13/2025 1:00 PM EST Appointment [facility] Interventional Radiology [address] [place] [address] 11/13/2025 2:00 PM EST Appointment [facility] Interventional Radiology [address] [place] [address] 11/20/2025 11:45 AM EST Appointment [facility] Interventional Radiology [address] [place] [address] 11/20/2025 12:45 PM EST Appointment [facility] Interventional Radiology [address] [place] [address] 11/22/2025 1:00 PM EST Office Visit [facility] [address] [facility] [address] [place] [address] Barrie Peterson MD [address] [place] [address] 11/28/2025 10:00 AM EST Appointment [facility] Interventional Radiology [address] [place] [address] 11/28/2025 11:00 AM EST Appointment [facility] Interventional Radiology [address] [place] [address] 12/05/2025 10:00 AM EST Appointment [facility] Interventional Radiology [address] [place] [address] 12/05/2025 11:00 AM EST Appointment [facility] Interventional Radiology [address] [place] [address] 12/20/2025 11:00 AM EST Office Visit [facility] Endocrinology [address] [place] [address] Miranda Hobson P, MARINE FIREFIGHTER [address] [place] [address] 03/07/2026 9:00 AM EDT Office Visit [place] [facility] [address] [place] [address] Grover Little MD [address] [place] [address] documented as of this encounter Procedures Procedure Name Priority Date/Time Associated Diagnosis Comments CT THORACIC OUTSIDE IMAGES 10/10/2025 12:05 PM EST documented in this encounter Results * CT THORACIC OUTSIDE IMAGES (10/10/2025 12:05 PM EST) Anatomical Region Laterality Modality Computed Tomogra phy [...] documented as of this encounter Care Teams Blender Operator Relationship Specialty Start Date End Date Lillie Pritchard MD [address] [place] [address] [phone] PCP - General Family Medicine 09/03/25 Lea Fernando [address] [facility] [address] [place] [address] Sonar Watchstander Endocrinology 08/29/24 Rachel Ray, RN [address] [facility] [address] [place] [address] Nurse Practitioner Gastroenterology 09/24/24 Tamera Isabel LPN VALUE-BASED TRANSFORMATION PROGRAM None Licensed Practical Nurse 05/29/25 documented as of this encounter
--- OUTSIDE RECORDS SUMMARY | 2025-11-11 23:06 | XMS_ITS | Encounter Summary ---
Author Organization [employer] ([place], [place], [place], [place], [place]) Address [address] [place] [address] Care Team Providers Care Editor News Name Role Phone Wilfredolayla Taina Burt APRN Primary Care Provider [phone] Encounter Details Date Type Department Care Team (Late st Contact Info) Description 09/08/[address] [facility] Family Medicine [address] [place] [address] ProviderWilliam MD [address] [place] [address] Social History Tobacco Use Types Packs/Day Years [...] Reyes MD - 09/08/2020 3:25 PM CDT [place] Suicide Severity Rating Scale (C-SSRS) Entered On: 09/08/2020 16:35 EDT Performed On: 09/08/2020 16:31 EDT by Angelina Cuello RN [place] Suicide Severity Rating Scale (C-SSRS) CSSRS Past [...] on filedocumented in this encounter Care Teams Editor News Relationship Specialty Start Date End Date Taina Lyles, PRODUCTION TESTER [address] [place] [address] PCP - General Nurse Practitioner 06/15/23 documented as of this encounter
--- OUTSIDE RECORDS SUMMARY | 2025-11-11 23:06 | XMS_ITS | Encounter Summary ---
Author Organization [facility] Address [address] [place] [address] Care Team Providers Care Youtuber Name Role Phone Lea Fernando Unavailable [phone] Rachel Ray RN Unavailable [phone] Tamera Isabel LPN Unavailable Unavailabl e Lillie Pritchard MD Primary Care Provider [phone] Encounter Details Date Type Department Care Team (Late st Contact Info) Description 10/10/2025 Orders Only External Location [address] [place] [address] Provider, External Social History Tobacco Use Types [...] health [facility] or tenriism services? Patient unable to [...] you attend chur ch or tenriism services? Never 05/29/2025 Do you [...] more drinks on one occasion? Never 09/03/2025 [facility] of Occupat ional [facility] - Occupational Stress Questionnaire Answer Date [...] in a skilled nursing (including now)? No 10/11/2025 [facility] Utilities Answer Date Recorded In [...] drink first t kennedy in the morning (EYE-TURF FARMER) to steady your nerves or to get [...] Appointment [facility] Interventional Radiology [address] [place] [address] 11/13/2025 2:00 PM EST Appointment [facility] Interventional Radiology [address] [place] [address] 11/20/2025 11:45 AM EST Appointment [facility] Interventional Radiology [address] [place] [address] 11/20/2025 12:45 PM EST Appointment P[facility] A Interventional Radiology [address] [place] [facility] [address] 11/22/2025 1:00 PM EST Office Visit [facility] [address] [facility] [address] [place] [address] Barrie Peterson MD [address] [place] [address] 11/28/2025 10:00 AM EST Appointment [facility] Interventional Radiology [address] [place] [address] 11/28/2025 11:00 AM EST Appointment [facility] Interventional Radiology [address] [place] [address] 12/05/2025 10:00 AM EST Appointment [facility] Interventional Radiology [address] [place] [address] 12/05/2025 11:00 AM EST Appointment [facility] Interventional Radiology [address] [place] [address] 12/20/2025 11:00 AM EST Office Visit [facility] Endocrinology [address] [place] [address] Miranda Hobson P, OFFICE SYSTEMS TECHNOLOGY INSTRUCTOR [address] [place] [address] 03/07/2026 9:00 AM EDT Office Visit [place] [facility] [address] [place] [address] Grover Little MD [address] [place] [address] documented as of this encounter Procedures Procedure Name Priority Date/Time Associated Diagnosis Comments US OUTSIDE IMAGES 10/10/2025 11:41 AM EST documented in this encounter Results * US OUTSIDE IMAGES (10/10/2025 11:41 AM EST) Anatomical Region Laterality Modality Ultrasound 10/10/2025 us External Provider IMG US PROCEDURES Edited Resul t - Final documented [...] documented as of this encounter Care Teams Youtuber Relationship Specialty Start Date End Date Lillie Pritchard MD [address] [place] [address] [phone] PCP - General Family Medicine 09/03/25 Lea Fernando [address] [place] [address] Pets Salesperson Endocrinology 08/29/24 Rachel Ray, RN [address] [place] [address] Nurse Practitioner Gastroenterology 09/24/24 Planck, Tamera N, DRILL PRESS OPERATOR VALUE-BASED TRANSFORMATION PROGRAM None Licensed Practical Nurse 05/29/25 documented as of this encounter
--- OUTSIDE RECORDS SUMMARY | 2025-11-11 23:06 | XMS_ITS | Encounter Summary ---
Author Organization [facility] Address [address] [place] [address] Care Team Providers Care Alternative Dispute Resolution Mediator Name Role Phone Lea Fernando Unavailable [phone] Rachel Ray RN Unavailable [phone] Tamera Isabel LPN Unavailable Unavailabl e Lillie Pritchard MD Primary Care Provider [phone] Encounter Details Date Type Department Care Team (Late st Contact Info) Description 10/10/2025 Orders Only External Location [address] [place] [address] Provider, External Social History Tobacco Use Types [...] you attend [facility] or alevism services? Patient unable to answer [...] you attend chur ch or alevism services? Never 05/29/2025 Do you [...] [facility] of Occupat ional [facility] - Occupational Stress Questionnaire Answer Date [...] in a alf (including now)? No 10/11/2025 [facility] Utilities Answer Date Recorded In [...] drink first t kennedy in the morning (EYE-CHOPPER GUN OPERATOR) to steady your nerves or to [...] Environmental surveillance 10/14/2025 8:0 0 AM Rowan Moneg RN * Calculated C-SSRS Risk Score (Lifetime/Recent) [...] Appointment [facility] Interventional Radiology [address] [place] [address] 11/13/2025 2:00 PM EST Appointment [facility] Interventional Radiology [address] [place] [address] 11/20/2025 11:45 AM EST Appointment [facility] Interventional Radiology [address] [place] [address] 11/20/2025 12:45 PM EST Appointment [facility] Interventional Radiology [address] [place] [address] 11/22/2025 1:00 PM EST Office Visit [facility] [address] [facility] [address] [place] [address] Barrie Peterson MD [address] [place] [address] 11/28/2025 10:00 AM EST Appointment [facility] Interventional Radiology [address] [place] [address] 11/28/2025 11:00 AM EST Appointment [facility] Interventional Radiology [address] [place] [address] 12/05/2025 10:00 AM EST Appointment [facility] Interventional Radiology [address] [place] [address] 12/05/2025 11:00 AM EST Appointment [facility] Interventional Radiology [address] [place] [address] 12/20/2025 11:00 AM EST Office Visit [facility] Endocrinology [address] [place] [address] Miranda Hobson P, BELT BUCKLE MAKER [address] [place] [address] 03/07/2026 9:00 AM EDT Office Visit [place] [facility] [address] [place] [address] Grover Little MD [address] [place] [address] documented as of this encounter [...] documented as of this encounter Care Teams Alternative Dispute Resolution Mediator Relationship Specialty Start Date End Date Lillie Pritchard MD [address] [place] [address] [phone] PCP - General Family Medicine 09/03/[address] [facility] [address] [place] [address] Services Clerk Endocrinology 08/29/24 Rachel Ray, RN [address] [facility] [address] [place] [address] Nurse Practitioner Gastroenterology 09/24/24 Tamera Isabel LPN VALUE-BASED TRANSFORMATION PROGRAM None Licensed Practical Nurse 05/29/25 documented as of this encounter
--- OUTSIDE RECORDS SUMMARY | 2025-11-11 23:06 | XMS_ITS | Encounter Summary ---
Author Organization [employer] ([place], [place], [place], [place]) Address [address] [place] [address] Care Team Providers Care Retail Pharmacy Technician Name Role Phone Taina Lyles BLOW PIT OPERATOR Primary Care Provider [phone] Encounter Details Date Type Department Care Team (Late st Contact Info) Description 09/08/2020 Transcribed Document [facility] [place] [address] [place] [address] ProviderWilliam MD [address] [place], [place] [address] Social History Tobacco Use Types Packs/Day Years [...] & time 09/08/2020 15:30:00, Voice recognition / tank truck engine mechanic technology used for some documentation in this [...] Tab, Oral, QAM, 30 Tab, 0 Refill(s) [place] 7.5 mg-325 mg oral tablet: 1 Tab, [...] EDT Height Source Estimated Height Entry Format Stanley Height/Length, MONGOLIAN (ft) 5 ft Height/Length MONGOLIAN 5 Inch CLINICALHEIGHT 165.1 cm [place] Body Weight 56.59 kg Weight Source, ED Critical estimated dosing weight Weight Entry Format Stanley Weight [place]o lb 190 lb CLINICALWEIGHT 86.36 kg Body [...] Orders Ordered Blood Pressure: Cardiac Monitoring: ED soda fountain manager: EKG: Place in Observation: Pulse Oximetry Continuous [...] % 41.0 % Lymph # 3.73 K/uL [place] % 9.5 % [place] # 0.86 K/uL [place] Eos % 2.9 [...] pressure), Interventions hemodynamic management, Case review medical investigator. Performed by: self. Heart Score Heart History: [...] filedocumented in this encounter Care Teams Retail Pharmacy Technician Relationship Specialty Start Date End Date Taina Lyles, ADRI [address] [place] [address] PCP - General Nurse Practitioner 06/15/23 documented as of this encounter
--- OUTSIDE RECORDS SUMMARY | 2025-11-11 23:06 | XMS_ITS | Encounter Summary ---
Author Organization [email or web address] ([place], [place], [place], [place], [place]) Address [address] [place] [address] Care Team Providers Care Shelter Supervisor Name Role Phone Taina Lyles APRN Primary Care Provider [phone] Encounter Details Date Type Department Care Team (Late st Contact Info) Description 10/05/2019 Transcribed Document [facility] Family Medicine [address] [place] [address] ProviderWilliam MD [address] [place] [address] Social History Tobacco Use Types Packs/Day Years Used Date Smoking Tobacco: Never Assessed Comments Unknown Sex and Gender Information Value Date Recorded Sex Assigned at Not on file Legal Sex Female 12:21 PM CDT Gender Identity Not on file Sexual Orientation Not on file documented as of this encounter Miscellaneous Notes * Cerner Conversion Note - William Reyes MD - 10/05/2019 3:36 PM REAL ESTATE ASSET MANAGER [address] [address] OPERATIVE REPORT PATIENT IDENTIFICATION: MONIKA ZIMMER (Female - 1960) ACCOUNT / UNIT NUMBER: [id number] / [id number] PRIMARY CARE PHYSICIAN: ERYN PARKINSON APRN PATIENT LOCATION: [facility] ADMIT DATE / TIME: 10/05/19 [...] for flow rate and bladder ultrasound PVR. /[id number] Dictated By: VOLODYMYR VILLARREAL E-Signed By: ALDO [id number] [\R\ rep ct labl] [\R\ rep ct ivnm] Medical Disclaimer: This report is to be considered preliminary until reviewed and signed. documented in this encounter Plan of Treatment Not on file documented as of this encounter Visit Diagnoses Not on filedocumented in this encounter Care Teams Shelter Supervisor Relationship Specialty Start Date End Date Taina Lyles, ADRI [address] [place] [address] PCP - General Nurse Practitioner 06/15/23 documented as of this encounter
--- OUTSIDE RECORDS SUMMARY | 2025-11-11 23:06 | XMS_ITS | Encounter Summary ---
Author Organization [facility] Address [address] [place] [address] Care Team Providers Care Tax Services Intern Name Role Phone Lea Fernando Unavailable [phone] Rachel Ray RN Unavailable [phone] Tamera Isabel LPN Unavailable [facility] Lillie Washburn MD Primary Care Provider [phone] Encounter Details Date Type Department Care Team (Latest Contact Info) Description 11/06/2025 Travel Social History Tobacco Use Types Packs/Day [...] you attend [facility] or yazdanism services? Never 05/29/2025 Do you [...] more drinks on one occasion? Never 09/03/2025 [facility] Occupat ional [...] a skilled nursing (including now)? No 10/11/2025 [facility] Utilities Answer Date Recorded In the past 12 months has th e [employer], gas, oil, or water company threatened to [...] drink first t kennedy in the morning (EYE-STUDIO TECHNICIAN VIDEO OPERATOR) to steady your nerves or to [...] Appointment [facility] Interventional Radiology [address] [place] [address] 11/13/2025 2:00 PM EST Appointment [facility] Inter[facility] Radiology [address] [place] [address] 11/20/2025 11:45 AM EST Appointment [facility]iology [address] [place] [address] 11/20/2025 12:45 PM EST Appointment [facility] Interventional Radiology [address] [place] [address] 11/22/2025 1:00 PM EST Office Visit [facility] [address] [place] [address] [place] [address] Barrie Peterson MD [address] [place] [address] 11/28/2025 10:00 AM EST Appointment [facility] Interventional Radiology [address] [place] [address] 11/28/2025 11:00 AM EST Appointment [facility] Inter[facility] Radiology [address] [place] [address] 12/05/2025 10:00 AM EST Appointment [facility] Interventional Radiology [address] [place] [address] 12/05/2025 11:00 AM EST Appointment [facility] Interventional Radiology [address] [place] [address] 12/20/2025 11:00 AM EST Office Visit [facility] Endocrinology [address] [place] [address] Miranda Hobson, FUR DRY CLEANER HAND [address] [facility] [address] [place] [address] 03/07/2026 9:00 AM EDT Office Visit [facility] [address] [place] [address] Grover Little MD [address] [place] [address] documented as of this encounter Visit Diagnoses [...] as of this encounter Care Teams Tax Services Intern Relationship Specialty Start Date End Date Lillie Pritchard MD [address] [place] [address] [phone] PCP - General Family Medicine 09/03/25 Lea Fernando [address] [facility] [address] [place] [address] Facilities Painter Endocrinology 08/29/24 Rachel Ray, RN [address] [address] Nurse Practitioner Gastroenterology 09/24/24 Tamera Isabel LPN VALUE-BASED TRANSFORMATION PROGRAM None Licensed Practical Nurse 05/29/25 documented as of this encounter
--- OUTSIDE RECORDS SUMMARY | 2025-11-11 23:06 | XMS_ITS | Encounter Summary ---
Author Organization [employer] ([place], [place], [place], [place], [place]) Address [address] [place] [address] Care Team Providers Care Resident Assistant Cna Name Role Phone Adarshfaith Taina Burt APRN Primary Care Provider [phone] Encounter Details Date Type Department Care Team (Late st Contact Info) Description 07/01/2021 Transcribed Document [facility] Family Medicine [facility] [place] [address] ProviderWilliam MD [address] [place], [place] [address] Social History Tobacco Use Types Packs/Day Years [...] : 3 - Urgent Tracking Group : [facility] LANG WOOD RN - [...] Estimated Onset Date: Unspecified ; Created By: OTIS_CARINA FOOTE; Reaction Status: Active ; Category: Drug ; Substance: No Known Allergies ; Type: Allergy ; Updated By: CARINA LUZ; Reviewed Date: 07/01/2021 12:32 EDT Diagnosis Control ED (As Of: 07/01/2021 12:33:22 EDT) Problems(Active) ADD (attention deficit disorder) (SNOMED CT :7108001372 ) Name of Problem: ADD (attention deficit disorder) ; Recorder: AZALEA ALBRIGHT RN; Confirmation: Confirmed ; Classification: Patient Stated ; Code: 1655199991 ; Contributor System: Mabaya ; Last Updated: 01/11/2017 14:23 EST ; Life Cycle Date: 01/11/2017 ; Life Cycle Status: Active ; Vocabulary: SNOMED CT Anxiety (SNOMED CT :1689775225 ) Name of Problem: Anxiety ; Recorder: AZALEA ALBRIGHT RN; Confirmation: Confirmed ; Classification: Patient Stated ; Code: 9359493521 ; Contributor System: PowerChart ; Last Updated: 01/11/2017 14:22 EST ; Life Cycle Date: 01/11/2017 ; Life Cycle Status: Active ; Vocabulary: SNOMED CT Arthritis (SNOMED CT :0363136 ) Name of Problem: Arthritis ; Recorder: LANNY BELLO RN; Confirmation: Confirmed ; Classification: Medical ; Code: 6517028 ; Contributor System: Bent PixelsChart ; Last Updated: 09/11/2015 14:10 EDT ; Life Cycle Date: 09/11/2015 ; Life Cycle Status: Active ; Vocabulary: SNOMED CT bilateral knee pain (SNOMED CT :20094790 ) Name of Problem: bilateral knee pain ; Recorder: LANNY BELLO RN; Confirmation: Confirmed ; Classification: Medical ; Code: 41417206 ; Contributor System: Bent PixelsChart ; Last Updated: 08/12/2017 10:18 EDT ; Life Cycle Date: 09/11/2015 ; Life Cycle Status: Active ; Vocabulary: SNOMED CT Chronic depression (SNOMED CT :481460822 ) Name of Problem: Chronic depression ; Recorder: AZALEA ALBRIGHT RN; Confirmation: Confirmed ; Classification: Patient Stated ; Code: 272968952 ; Contributor System: PowerChart ; Last Updated: 01/11/2017 14:23 EST ; Life Cycle Date: 01/11/2017 ; Life Cycle Status: Active ; Vocabulary: SNOMED CT Diabetes (SNOMED CT :989811977 ) Name of Problem: Diabetes ; Recorder: LANNY BELLO RN; Confirmation: Confirmed ; Classification: Medical ; Code: 246147210 ; Contributor System: PowerChart ; Last Updated: 09/11/2015 14:10 EDT ; Life Cycle Date: 09/11/2015 ; Life Cycle Status: Active ; Vocabulary: SNOMED CT GERD (gastroesophageal reflux disease) (SNOMED CT :646668554 ) Name of Problem: GERD (gastroesophageal reflux disease) ; Recorder: LANNY BELLO RN; Confirmation: Confirmed ; Classification: Medical ; Code: 250623106 ; Contributor System: Bent PixelsChart ; Last Updated: 09/11/2015 14:11 EDT ; Life Cycle Date: 09/11/2015 ; Life Cycle Status: Active ; Vocabulary: SNOMED CT H/O syncope (SNOMED CT :5267440229 ) Name of Problem: H/O syncope ; Recorder: AZALEA ALBRIGHT RN; Confirmation: Confirmed ; Classification: Patient Stated ; Code: 3786787548 ; Contributor System: PowerChart ; Last Updated: 01/11/2017 14:29 EST ; Life Cycle Date: 01/11/2017 ; Life Cycle Status: Active ; Vocabulary: SNOMED CT History of recurrent UTIs (SNOMED CT :552107505 ) Name of Problem: History of recurrent UTIs ; Recorder: AZALEA ALBRIGHT RN; Confirmation: Confirmed ; Classification: Patient Stated ; Code: 970778678 ; Contributor System: PowerChart ; Last Updated: 01/11/2017 14:22 EST ; Life Cycle Date: 01/11/2017 ; Life Cycle Status: Active ; Vocabulary: SNOMED CT Hyperlipidemia (SNOMED CT :69093978 ) Name of Problem: Hyperlipidemia ; Recorder: LANNY BELLO RN; Confirmation: Confirmed ; Classification: Medical ; Code: 51573802 ; Contributor System: PowerChart ; Last Updated: 09/11/2015 14:10 EDT ; Life Cycle Date: 09/11/2015 ; Life Cycle Status: Active ; Vocabulary: SNOMED CT Renal insufficiency (SNOMED CT :6729165572 ) Name of Problem: Renal insufficiency ; Recorder: AZALEA ALBRIGHT RN; Confirmation: Confirmed ; Classification: Patient Stated ; Code: 4951305334 ; Contributor System: PowerChart ; Last Updated: 01/11/2017 14:22 EST ; Life Cycle Date: 01/11/2017 ; Life Cycle Status: Active ; Vocabulary: SNOMED CT right carpal tunnel (SNOMED CT :55044553 ) Name of Problem: right carpal tunnel ; Recorder: LANNY BELLO RN; Confirmation: Confirmed ; Classification: Medical ; Code: 58327865 ; Contributor System: PowerChart ; Last Updated: 09/02/2017 10:07 EDT ; Life Cycle Date: 09/11/2015 ; Life Cycle Status: Active ; Vocabulary: SNOMED CT Right tennis elbow (SNOMED CT :3404905272 ) Name of Problem: Right tennis elbow ; Recorder: LANNY BELLO RN; Confirmation: Confirmed ; Classification: Medical ; Code: 9728498983 ; Contributor System: PowerChart ; Last Updated: 05/21/2019 14:33 EDT ; Life Cycle Status: Active ; Vocabulary: SNOMED CT ; Comments: 09/11/2015 14:11 - LANNY BELLO RN recent diagnosis RLS (restless legs syndrome) (SNOMED CT :78002582 ) Name of Problem: RLS (restless legs syndrome) ; Recorder: LANNY BELLO RN; Confirmation: Confirmed ; Classification: Medical ; Code: 47534049 ; Contributor System: Bent PixelsChart ; Last Updated: 09/11/2015 14:33 EDT ; Life Cycle Date: 09/11/2015 ; Life Cycle Status: Active ; Vocabulary: SNOMED CT sleep apnea with Cpap (SNOMED CT :969704491 ) Name of Problem: sleep apnea with Cpap ; Recorder: LANNY BELLO RN; Confirmation: Confirmed ; Classification: Medical ; Code: 434491893 ; Contributor System: Bent PixelsChart ; Last Updated: 08/12/2017 11:32 EDT ; Life Cycle Date: 09/11/2015 ; Life Cycle Status: Active ; Vocabulary: SNOMED CT Stress incontinence (SNOMED CT :399755606 ) Name of Problem: Stress incontinence ; Recorder: LANNY BELLO RN; Confirmation: Confirmed ; Classification: Medical ; Code: 825728548 ; Contributor System: Bent PixelsChart ; Last Updated: 09/11/2015 14:12 EDT ; Life Cycle Date: 09/11/2015 ; Life Cycle Status: Active ; Vocabulary: SNOMED CT Diagnoses(Active) Medical screening exam Date: 07/01/2021 ; Diagnosis Type: Reason For Visit ; Confirmation: Complaint of ; Clinical Dx: Medical screening exam ; Classification: Medical ; Clinical Service: Emergency medicine ; Code: PNED ; Probability: 0 ; Diagnosis Code: [id number] ED Height and Weight Height Source : Stated Height Entry Format : [place] Height, Feet : 5 ft(Converted to: 152 cm, 60 Inch) Height, Inches : 6 Inch(Converted to: 0 ft 6 Inch, 15.24 cm) Clinical Height : 167.64 cm Weight Source, ED : Standing scale Weight Entry Format : [place] Weight, Pounds : 203 lb Clinical Dosing Weight : 92.27 kg Body Surface Area (BSA) : 2.01 m2 Body Mass Index : 32.8 kg/m2 (HI) [place] Body Weight (IBW) : 58.88 kg LANG WOOD RN - 07/01/2021 12:30 EDT documented in this encounter Plan of Treatment Not on file documented as of this encounter Visit Diagnoses Not on filedocumented in this encounter Care Teams Resident Assistant Cna Relationship Specialty Start Date End Date Taina Lyles, BOTTOM HOOP DRIVER [address] [place] [address] PCP - General Nurse Practitioner 06/15/23 documented as of this encounter
--- OUTSIDE RECORDS SUMMARY | 2025-11-11 23:06 | XMS_ITS | Encounter Summary ---
Author Organization [employer] ([place], [place], [place], [place], [place]) Address [address] [place] [address] Care Team Providers Care Software Engineer Backend Name Role Phone Taina Lyles APRN Primary Care Provider [phone] Encounter Details Date Type Department Care Team (Late st Contact Info) Description 01/23/2019 Transcribed Document [facility] Family Medicine [address] [place] [address] ProviderWilliam MD [address] [place] [address] Social History Tobacco Use Types Packs/Day Years Used Date Smoking Tobacco: Never Assessed Comments Unknown Sex and Gender Information Value Date Recorded Sex Assigned at Not on file Legal Sex Female 12:21 PM CDT Gender Identity Not on file Sexual Orientation Not on file documented as of this encounter Miscellaneous Notes * Cerner Conversion Note - William Reyes MD - 01/23/2019 2:56 PM TRANSMISSION TECHNICIAN [address] [address] OPERATIVE REPORT PATIENT IDENTIFICATION: MONIKA ZIMMER (Female - 1960) ACCOUNT / UNIT NUMBER: [id number] / [id number] PRIMARY CARE PHYSICIAN: ERYN PARKINSON APRN PATIENT LOCATION: [facility] 300-11 ADMIT DATE / TIME: 01/23/19 1051 DISCHARGE DATE / TIME: DICTATED: 01/23/19 0956 by VOLODYMYR VILLARREAL TRANSCRIBED: 01/23/19 1107 by PS IMPORTED: 01/23/19 1108 CC: ERYN PARKINSON APRN; FRANK LI; VOLODYMYR VILLARREAL\R\ [facility] Original DATE OF PROCEDURE: 01/23/2019 [...] made anterior vaginal wall incision and used [place] and freed this away from the urethra [...] rep ct ivnm] Electronically signed by Luigi [facility] Conversion Financial Assistance Specialist Cerner at 02/21/2023 1:44 PM CDT documented in this encounter Plan of Treatment Not on file documented as of this encounter Visit Diagnoses Not on filedocumented in this encounter Care Teams Software Engineer Backend Relationship Specialty Start Date End Date Taina Lyles, ADRI [address] [place] [address] PCP - General Nurse Practitioner 06/15/23 documented as of this encounter
--- OUTSIDE RECORDS SUMMARY | 2025-11-11 23:06 | XMS_ITS | Encounter Summary ---
Author Organization [employer] ([place], [place], [place], [place], [place]) Address [address] [place] [address] Care Team Providers Care Machine Filler Shredder Name Role Phone Taina Lyles ADRI Primary Care Provider [phone] Encounter Details Date Type Department Care Team (Late st Contact Info) Description 09/08/2020 Transcribed Document [facility] Family Medicine [address] [place] [address] ProviderWilliam MD [address] [place], [place] [address] Social History Tobacco Use Types Packs/Day Years [...] Communication Barrier : None Primary Language : Bermudian Any Spiritual/Cultural Needs or Requests : No [...] (Last Updated: 01/11/2017 14:31:20 EST by AZALEA ALBRGIHT, RN) Cardiovascular ASMT, ED Cardiovascular Assessment WDL : WDL with exceptions Cardiovascular Symptoms : Chest pain at rest Heart Rhythm : Regular Nail Bed Color : Zeigler Angelina Cuello RN - 09/08/2020 17:54 EDT documented in this encounter Plan of Treatment Not on file documented as of this encounter Visit Diagnoses Not on filedocumented in this encounter Care Teams Machine Filler Shredder Relationship Specialty Start Date End Date Taina Lyles, ADRI [address] [place] [address] PCP - General Nurse Practitioner 06/15/23 documented as of this encounter
--- OUTSIDE RECORDS SUMMARY | 2025-11-11 23:06 | XMS_ITS | Encounter Summary ---
Author Organization [facility] Address [address] [place] [address] Care Team Providers Care Vice President Supply Chain Name Role Phone Lea Fernando Unavailable [phone] Rachel Ray RN Unavailable [phone] Taina Lyles APRN Primary Care Provider [phone] Monique Tapia LICENSED FINAL EXPENSE AGENTS Unavailable Unavailable Alvarez Zimmer MD Primary Care Provider [phone] Shaniqua Trevino LPN Unavailable Unavailable Tamera Isabel LICENSED FINAL EXPENSE AGENTS Unavailable UnavailAlina Bedolla RN Unavailable Unavailab le Monique Tapia LPN Unavailable Unavailable Shaniqua Trevino LPN Unavailable Unavailable Lillie Pritchard MD Primary Care Provider [phone] Wilma Esqueda LICENSED FINAL EXPENSE AGENTS Unavailable Unavailab le Encounter Details Date Type Department Care Team (Late st Contact Info) Description 10/24/2024 Ophth Exam [facility] [address] [place] [address] Serene Barragan MD [address] [place] [address] Social History Tobacco Use Types [...] and Family Not on file 10/16/2024 Attends Sikhism Services Not on file 10/16 Active Member [...] a senior care (including now)? Yes 08/29/2024 Housing Stability Vital [...] in a senior care (including now)? No 10/16/2024 CAGE ASSESSMENT Answer [...] drink first t kennedy in the morning (EYE-ADMISSION NURSE COORDINATOR) to steady your nerves or to [...] Date of Assessment Author Precautions Environmental surveillance 10/27/2024 3:0 8 PM Wild Dickson, PARK * Calculated C-SSRS Risk Score (Lifetime/Recent) Answer Date of Assessment Author No Risk Indicated 10/26/2024 8:00 PM EST Rochelle Wallace RN * Question Answer Date of Assessment Author 1. Wish to be (Past 1 Month) No 024 8:00 PM EST Rochelle Wallace RN 2. Non-Specific Active Suici liz Thoughts (Past 1 Month) No 10/26/2024 8:00 PM EST Rochelle Wallace RN 6. Suicidal Behavior (Lifetime) No 8:00 PM EST Rochelle Wallace RN documented as of this encounter Mental Status * Question Answer Entry Date Author Precautions Environmental surveillance 10/27/2024 3:0 8 PM EST Wild Terry RN documented in this encounter Plan of Treatment Upcoming Encounters Date Type Department Care Team (Late st Contact Info) Description 11/13/2025 1:00 PM EST Appointment [facility] Interventional Radiology [address] [place] [address] 11/13/2025 2:00 PM EST Appointment [facility] Interventional Radiology [address] [place] [address] 11/20/2025 11:45 AM EST Appointment [facility] Interventional Radiology [address] [place] [address] 11/20/2025 12:45 PM EST Appointment [facility] Interventional Radiology [address] [place] [address] 11/22/2025 1:00 PM EST Office Visit [facility] [address] [place] [address] Barrie Peterson MD [address] [place] [address] 11/28/2025 10:00 AM EST Appointment [facility] Interventional Radiology [address] [place] [address] 11/28/2025 11:00 AM EST Appointment [facility] Interventional Radiology [address] [place] [address] 12/05/2025 10:00 AM EST Appointment [facility] Interventional Radiology [address] [place] [address] 12/05/2025 11:00 AM EST Appointment [facility] Interventional Radiology [address] [place] [address] 12/20/2025 11:00 AM EST Office Visit [facility] Endocrinology [address] [place] [address] Miranda Hobson, OUTSIDE PRODUCTION INSPECTOR [address] [place] [address] 03/07/2026 9:00 AM EDT Office Visit [facility] [address] [place] [address] Grover Little MD [address] [place] [address] documented as of this encounter [...] of this encounter Care Teams Vice President Supply Chain Relationship Specialty Start Date End Date Taina Lyles, OUTSIDE PRODUCTION INSPECTOR [address] [place] [address] [place] [address] PCP - General 10/01/24 12/06/24 Alvarez Zimmer MD [address] [place] [address] PCP - General Family Medicine 12/07/24 09/02/25 Lillie Pritchard MD [address] [place] [id number] PCP - General Family Medicine 09/03/25 Lea Fernando [address] [facility] [address] [place] [address] State Appellate Clerk Endocrinology 08/29/24 Rachel Ray, RN [address] [facility] [address] [place] [address] Nurse Practitioner Gastroenterology 09/24/24 Monique Tapia LPN VALUE-BASED [place] [address] None TCM Nurse 11/28/24 12/28/24 Shaniqua Trevino LPN None None TCM Nurse 01/15/25 02/14/25 Tamera Isabel LPN VALUE-BASED TRANSFORMATION PROGRAM None Licensed Practical Nurse 05/29/25 Alina Lovett, RN [facility] None Registered Nurse 06/26/25 06/26/25 Monique Tapia LPN VALUE-BASED [place] [address] None TCM Nurse 07/10/25 08/09/25 Shaniqua Trevino LPN None None TCM Nurse 08/21/25 09/20/25 Wilma Esqueda LPN [facility] None TCM Nurse 10/25/25 10/25/25 documented as of this encounter
--- OUTSIDE RECORDS SUMMARY | 2025-11-11 23:06 | XMS_ITS | Encounter Summary ---
Author Organization [employer] ([place], [place], [place], [place], [place]) Address [address] [place] [address] Care Team Providers Care Prosthetic Aides Teacher Name Role Phone Taina Lyles ADRI Primary Care Provider [phone] Encounter Details Date Type Department Care Team (Late st Contact Info) Description 07/01/2021 Transcribed Document [facility] [place] [facility] [place] [address] ProviderWilliam MD [address] [place] [id number] Social History Tobacco Use Types Packs/Day Years [...] stated she had a normal cath in 2016. Patient has no known allergies. Nursing notes [...] EDT Height Source Stated Height Entry Format [place] Height/Length, BRUNEIAN (ft) 5 ft Height/Length BRUNEIAN 6 Inch CLINICALHEIGHT 167.64 cm [place] Body Weight 58.88 kg Weight Source, ED Standing scale Weight Entry Format [place] Weight [place] lb 203 lb CLINICALWEIGHT 92.27 kg Body [...] % LOW Lymph # 1.03 K/uL LOW [place] % 8.2 % [place] # 0.66 K/uL Eos % 6.1 % [...] on filedocumented in this encounter Care Teams Prosthetic Aides Teacher Relationship Specialty Start Date End Date Taina Lyles, ADRI [address] [place] [address] PCP - General Nurse Practitioner 06/15/23 documented as of this encounter
--- OUTSIDE RECORDS SUMMARY | 2025-11-11 23:06 | XMS_ITS | Encounter Summary ---
Author Organization [employer] ([place], [place], [place], [place], [place]) Address [address] [place] [address] Care Team Providers Care Outpatient Surgery Rn Name Role Phone Trupti Taina Burt APRN Primary Care Provider [phone] Encounter Details Date Type Department Care Team (Late st Contact Info) Description 05/01/2019 Transcribed Document [facility] Family Medicine [address] [place] [address] ProviderWilliam MD [address] [place] [address] Social History Tobacco Use Types Packs/Day Years [...] moderate sleepiness and scores 16/24 in the [place] Sleepiness Scale. She does have insomnia for which she is using trazodone with good benefit. OTHER MEDICAL PROBLEMS: Include diabetes mellitus, obesity, and depression. MEDICATIONS: 1. Azelastine. 2. Magnesium. 3. Bupropion. 4. Venlafaxine. 5. Multivitamin. 6. Ranitidine. 7. Carvedilol. 8. Oxybutynin. 9. Plaquenil. 10. Humulin R. 11. Baclofen. 12. [place]. 13. Prednisone. 14. Atorvastatin. 15. Humulin. 16. [...] Dr. Wilma Howard Electronically signed by Luigi [facility] Conversion Steam Locomotive Firer/Fireman Cerner at 03/07/2023 9:43 AM CDT documented in this encounter Plan of Treatment Not on file documented as of this encounter Visit Diagnoses Not on filedocumented in this encounter Care Teams Outpatient Surgery Rn Relationship Specialty Start Date End Date Taina Lyles, ADRI [address] [place] [address] PCP - General Nurse Practitioner 06/15/23 documented as of this encounter
--- OUTSIDE RECORDS SUMMARY | 2025-11-11 23:07 | XMS_ITS | Encounter Summary ---
Author Organization [facility] Address [address] [place] [address] Care Team Providers Care Tack Picker Name Role Phone Lea Fernando Unavailable [phone] Rachel Ray RN Unavailable [phone] Alvarez Zimmer MD Primary Care Provider [phone] Tamera Isabel EXECUTIVE ADMIN Unavailable UnavailAlina Bedolla RN Unavailable Unavailab le Monique Tapia EXECUTIVE ADMIN Unavailable Unavailable Shaniqua Trevino EXECUTIVE ADMIN Unavailable Unavailable Lillie Pritchard MD Primary Care Provider [phone] iWlma Esqueda EXECUTIVE ADMIN Unavailable Unavailab le Reason for Visit * Reason Onset Date Comments Med Refill 05/21/2025 Encounter Details Date Type Department Care Team (Late st Contact Info) Description 05/21/2025 Refill [facility] [address] [place] [address] Al[place] [address] Social History Tobacco Use Types [...] you attend [facility] or [facility]? Patient unable to answer [...] 05/07/2025 [facility]at [facility] - Occupational Stress Questionnaire Answer [...] drink first t kennedy in the morning (EYE-INVENTORY SPECIALIST MANAGER) to steady your nerves or to [...] Appointment [facility] [address] [place] [address] 11/13/2025 2:00 PM EST Appointment [facility] [address] [place] [address] 11/20/2025 11:45 AM EST Appointment [facility] [address] [place] [address] 11/20/2025 12:45 PM EST Appointment [facility] [address] [place] [address] 11/22/2025 1:00 PM EST Office Visit [facility] [address] [place] [address] Barrie Peterson MD [address] [place] [address] 11/28/2025 10:00 AM EST Appointment [facility] [address] [place] [address] 11/28/2025 11:00 AM EST Appointment [facility] [address] [place] [address] 12/05/2025 10:00 AM EST Appointment [facility] [address] [place] [address] 12/05/2025 11:00 AM EST Appointment [facility] [address] [place] [address] 12/20/2025 11:00 AM EST Office Visit [facility] Endocrinology [address] [place] [address] Miranda Hobson P, DIGITAL CONTENT MARKETING MANAGER [address] [place] [address] 03/07/2026 9:00 AM EDT Office Visit [facility] [address] [place] [address] Grover Little MD [address] [place] [address] documented as of this encounter Visit Diagnoses [...] documented as of this encounter Care Teams Tack Picker Relationship Specialty Start Date End Date Alvarez Zimmer MD [address] [place] [address] PCP - General Family Medicine 12/07/24 09/02/25 Lillie Pritchard MD [address] [place] [address] PCP - General Family Medicine 09/03/25 Lea Fernando [address] [facility] [address] [place] [address] Ob/Gyn Physician Endocrinology 08/29/24 Rachel Ray, RN [address] [place] [address] Nurse Practitioner Gastroenterology 09/24/24 Tamera Isabel LPN VALUE-BASED TRANSFORMATION PROGRAM None Licensed Practical Nurse 05/29/25 Alina Lovett, RN [facility] INTERVENTIONAL RADIOLOGY None Registered Nurse 06/26/25 06/26/25 Monique Tapia LPN VALUE-BASED [place] [address] None TCM Nurse 07/10/25 08/09/25 Shaniqua Trevino LPN None None TCM Nurse 08/21/25 09/20/25 Wilma Esqueda LPN [facility] None TCM Nurse 10/25/25 10/25/25 documented as of this encounter
--- OUTSIDE RECORDS SUMMARY | 2025-11-11 23:07 | XMS_ITS | Encounter Summary ---
Author Organization [facility] Address [address] [place] [address] Care Team Providers Care Salesforce Business Analyst Name Role Phone Wilma Howard APRN Primary Care Provider [phone] Lea Fernando Unavailable [phone] Rachel Ray RN Unavailable [phone] Taina Lyles APRN Primary Care Provider [phone] Monique Tapia LPN Unavailable Unavailable Alvarez Zimmer MD Primary Care Provider [phone] Shaniqua Trevino LPN Unavailable Unavailable Tamera Isabel RELOCATION SPECIALIST Unavailable UnavailAlina Bedolla RN Unavailable Unavailab le Monique Tapia LPN Unavailable Unavailable Shaniqua Trevino LPN Unavailable Unavailable Lillie Pritchard MD Primary Care Provider [phone] Wilma Esqueda LPN Unavailable Unavailab le Reason for Visit * Reason Comments Med Refill Encounter Details Date Type Department Care Team (Late st Contact Info) Description 07/28/2021 Refill [facility] End[facility] [address] [place] [address] Deysi Antonio MD [address] [facility] [address] [place] [address] Social History Tobacco Use Types Packs/Day Years [...] 9:33 AM EDT Sexual Orientation Straight 06/22/2022 9 :33 AM EDT COVID-19 Exposure Response Date Recorded In the last month, have you been in contact with someone who was confirmed or suspected to have Coronavirus / COVID-19? No / Unsure 07/17/2021 12:51 PM EDT documented as of this encounter Plan of Treatment Upcoming Encounters Date Type Department Care Team ([facility] st Contact Info) Description 11/13/2025 1:00 PM EST Appointment [facility]iology [address] [place] [address] 11/13/2025 2:00 PM EST Appointment [facility] [address] [place] [address] 11/20/2025 11:45 AM EST Appointment [facility] [address] [place] [address] 11/20/2025 12:45 PM EST Appointment [facility] [address] [place] [address] 11/22/2025 1:00 PM EST Office Visit [facility] [address] [place] [address] Barrie Peterson MD [address] [place] [address] 11/28/2025 10:00 AM EST Appointment [facility] [address] [place] [address] 11/28/2025 11:00 AM EST Appointment [facility] [address] [place] [address] 12/05/2025 10:00 AM EST Appointment [facility] [address] [place] [address] 12/05/2025 11:00 AM EST Appointment [facility] [address] [place] [address] 12/20/2025 11:00 AM EST Office Visit [facility] Endocrinology [address] [place] [address] Miranda Hobson, IP PARALEGAL [address] [place] [address] 03/07/2026 9:00 AM EDT Office Visit [facility] [address] [place] [address] Grover Little MD [address] [place] [address] documented as of this encounter Visit Diagnoses [...] documented as of this encounter Care Teams Salesforce Business Analyst Relationship Specialty Start Date End Date Wilma Howard, IP PARALEGAL [address] [place] [address] PCP - General 04/03/21 09/30/24 Taina Lyles APRN [address] [place] [address] PCP - General 10/01/24 12/06/24 Alvarez Zimmer MD [address] [place] [address] PCP - General Family Medicine 12/07/24 09/02/25 Lillie Pritchard MD [address] [place] [address] PCP - General Family Medicine 09/03/25 Lea Fernando [address] [facility] [address] [place] [address] Pattern Maker Programer Endocrinology 08/29/24 Rachel Ray, RN [address] [facility] [address] [place] [address] Nurse Practitioner Gastroenterology 09/24/24 Monique Tapia LPN VALUE[employer] [address] None TCM Nurse 11/28/24 12/28/24 Shaniqua Trevino LPN None None TCM Nurse 01/15/25 02/14/25 Tamera Isabel LPN VALUE-BASED TRANSFORMATION PROGRAM None Licensed Practical Nurse 05/29/25 Alina Lovett, RN [facility]VASCULAR [facility] INTERVENTIONAL RADIOLOGY None Registered Nurse 06/26/25 06/26/25 Monique Tapia LPN VALUE-[place] [address] None TCM Nurse 07/10/25 08/09/25 Shaniqua Trevino LPN None None TCM Nurse 08/21/25 09/20/25 Wilma Esqueda LPN [facility] None TCM Nurse 10/25/25 10/25/25 documented as of this encounter
--- OUTSIDE RECORDS SUMMARY | 2025-11-11 23:07 | XMS_ITS | Encounter Summary ---
Author Organization [facility] Address [address] [place] [address] Care Team Providers Care Psychiatric Registered Nurse Name Role Phone Lea Fernando Unavailable [phone] Rachel Ray RN Unavailable [phone] Alvarez Zimmer MD Primary Care Provider [phone] Tamera Isabel GROMMET WORKER Unavailable Unavailabl Alina Jennings RN Unavailable Unavailab le Monique Tapia GROMMET WORKER Unavailable Unavailable Shaniqua Trevino GROMMET WORKER Unavailable Unavailable Lillie Pritchard MD Primary Care Provider [phone] Wilma Esqueda GROMMET WORKER Unavailable Unavailab le Reason for Visit * Reason Onset Date Comments Med Refill 05/21/2025 Encounter Details Date Type Department Care Team (Late st Contact Info) Description 05/21/2025 Refill [facility] [address] [facility] [place] [address] Ar Dominique MD [address] [facility] [address] [place] [address] Chronic kidney disease, stage 3b [...] do you attend [facility] or [facility] services? Patient unable to answer [...] Score 1 05/07/2025 [facility] - Occupational Stress Questionnaire Answer [...] first t kennedy in the morning (EYE-INSURANCE CLAIMS ADJUSTER) to steady your nerves or to get [...] Appointment [facility] Inter[facility] Radiology [address] [place] [address] 11/13/2025 2:00 PM EST Appointment [facility] [address] [facility] [place] [address] 11/20/2025 11:45 AM EST Appointment [facility] [address] [place] [address] 11/20/2025 12:45 PM EST Appointment [facility] Inter[facility] Radiology [address] [place] [facility] [place] [address] 11/22/2025 1:00 PM EST Office Visit [facility] [address] [place] [address] Barrie Peterson MD [address] [place] [address] 11/28/2025 10:00 AM EST Appointment [facility] [address] [place] [address] 11/28/2025 11:00 AM EST Appointment [facility] [address] [place] [address] 12/05/2025 10:00 AM EST Appointment [facility] [address] [place] [address] 12/05/2025 11:00 AM EST Appointment [facility] [address] [place] [address] 12/20/2025 11:00 AM EST Office Visit [facility] Endocrinology [address] [place] [address] Miranda Hobson P, CLERICAL SPECIALIST [address] [place] [address] 03/07/2026 9:00 AM EDT Office Visit [facility] [address] [place] [address] Grover Little MD [address] [place] [address] documented as of this encounter [...] as of this encounter Care Teams Psychiatric Registered Nurse Relationship Specialty Start Date End Date Alvarez Zimmer MD [address] [place] [phone] PCP - General Family Medicine 12/07/24 09/02/25 Lillie Pritchard MD [address] [place] [address] PCP - General Family Medicine 09/03/25 Lea Fernando [address] [facility] [address] [place] [phone] Application Support Technician Endocrinology 08/29/24 Rachel Ray, RN [address] [place] [phone] Nurse Practitioner Gastroenterology 09/24/24 Tamera Isabel LPN VALUE-BASED TRANSFORMATION PROGRAM None Licensed Practical Nurse 05/29/25 Alina Lovett, RN [facility]-VASCULAR [facility] INTERVENTIONAL RADIOLOGY None Registered Nurse 06/26/25 06/26/25 Monique Tapia LPN VALUE-BASED [place] [address] None TCM Nurse 07/10/25 08/09/25 Shaniqua Trevino LPN None None TCM Nurse 08/21/25 09/20/25 Wilma Esqueda LPN [facility] None TCM Nurse 10/25/25 10/25/25 documented as of this encounter
--- NOTE | 2025-11-11 23:08 | [facility].EDGENADL ---
Discharge Plan Disposition Patient Disposition: Xfer Short-Term Hosp Condition: Fair Referrals Follow up/Referrals: Bari Giraldo MD [Primary Care Provider, Internal Medicine] - See instructions Clinical Impressions Clinical Impression: Liver failure, CKD (chronic kidney disease), Palpitation, Generalized weakness, Hyponatremia Stand Alone Forms Stand Alone Forms: Transfer Record - ED Print Language Print Language: Frisian Discharge ED Provider: Anna Hicks General Adult HPI General Chief complaint: Arrhythmia/Palpitations Stated complaint: heart problems Time Seen by Provider: 11/11/25 22:59 Mode of Arrival: EMS Source of Information: Patient and EMS Description of Symptoms (Recalled from ER Triage Doc. by RN): Patient presents via EMS for high heart rate before lunch in the 170's . patient otherwise has no complaints. triage HR is 93 bpm. patient gets paracentesis every tuesday, last one pulling 7.5 L off. History of Present Illness HPI narrative: 65-year-old female presents to the ER from [facility] complaining of high heart rate at lunchtime. Reportedly patient was feeling her heart race and the rate was in the 170s. Patient states she still feels like her heart is racing though her heart rate is only in the 90s. She reports she gets paracentesis every Tuesday and is scheduled for 2 days from now and to have another paracentesis completed. She also states she has occasional thoracentesis. She does have a history of kidney dysfunction and cirrhosis. She reports no headache, nausea, vomiting, diarrhea, chest pain, or difficulty breathing. She reports since her last hospitalization she has continued having decreased urine output but that is not an acute change. Review of records demonstrates this hospitalization was back in September and patient required transfer to [facility] ICU from this ER. She reports since that hospitalization her urination has never recovered to prehospitalization baseline. Further review of records demonstrates patient has had a meld of 26 back in September. It also appears that she is essentially on palliative care for her cirrhosis. Patient states she does not have any other associated symptoms at this time except that she feels dizzy when she stands up. She has not had any syncope, no falls or injuries. She has no room spinning sensation. She simply states she feels lightheaded. Related Data Allergies Allergy/AdvReac Type Severity Reaction Status Date / Time No Known Allergies Allergy Verified 06/23/25 17:54 [facility] Disclaimer: The information contained in this section may have been updated after the patient was seen, as this information can be updated by other users. Social History (Updated 06/23/25 @ 21:33 by Kandice Maldonado APRN) Smoking Status: Never smoker alcohol intake: never current occupational status: unemployed Travel in the last 8 weeks?: None Have you lived/traveled outside [place] in past 30 days?: No Contact w/someone who lives/traveled outside US past 30 days?: No Exposure to someone with infectious disease in past 14 days?: No Do you have a fever (greater than 100.4 F or 38 C)?: No Have you tested positive for COVID-19?: No Exposed to someone with COVID-19 in past 14 days?: No Do you have a sore throat?: No Do you have a cough?: No Do you have any weakness?: No Do you have any diarrhea?: No Are you experiencing any unusual bleeding?: No Do you have any muscle aches/pain?: No Do you have any abdominal pain?: No Are you experiencing loss of taste or smell?: No ROS Obtained: Yes Systems reviewed as appropriate & no additional complaints except as documented Per HPI Physical Exam General General appearance: alert and in no apparent distress Comment: Chronically ill-appearing Head Head exam: atraumatic and normocephalic Eye Eye exam: Present PERRL, EOMI and jaundice (Mild) ENT ENT exam: Present mucous membranes moist Neck Neck exam: Present normal inspection and full ROM Chest Chest inspection: Present symmetric chest wall rise Respiratory Respiratory exam: Present normal lung sounds bilaterally; Absent respiratory distress, wheezes or stridor Cardiovascular Cardiovascular exam: Present regular rate and normal rhythm Abdominal Exam Abdominal exam: Present soft, distention, ascites and scar; Absent tenderness, guarding, rebound or rigidity Extremities Exam Extremities exam: Present full ROM and edema (+1 bilateral lower extremity) Neurological Exam Neurological exam: Present alert and oriented X3; Absent motor sensory deficit Psychiatric Psychiatric exam: Present normal affect and normal mood Skin Skin exam: Present warm and dry Medical Decision Making Medical Records Medical records reviewed: Yes I reviewed the patient's medical records. Screening: Per USPSTF and CDC recommendations, given the prevalence of disease in our region, it is our hospital?s policy to screen for HIV and viral Hepatitis for all patients aged 18 and over and those with ongoing risk factors. Valente Inquiry Pt receiving controlled substance: No Vital Signs: 11/11/25 22:50 11/11/25 22:56 11/11/25 23:46 Temperature 98.5 F 98 F Temperature Source Oral Oral Pulse Rate 84 Pulse Rate [Orthostatic Lying Right] 97 H Pulse Rate [Orthostatic Sitting Right] 102 H Pulse Rate [Orthostatic Standing Right] 95 H Pulse Rate [Right Radial] 93 H Respiratory Rate 18 18 Blood Pressure 109/53 L Blood Pressure [Orthostatic Lying Right Arm] 121/79 Blood Pressure [Orthostatic Sitting Right Arm] 134/73 Blood Pressure [Orthostatic Standing Right Arm] 113/60 Blood Pressure [Right Arm] 126/76 Blood Pressure Mean [Right Arm] 92 Blood Pressure Source Automatic Cuff Blood Pressure Source [Right Arm] Automatic Cuff Blood Pressure Position Supine Blood Pressure Position [Right Arm] Sitting 02 Sat by Pulse Oximetry 96 96 Oxygen Delivery Method Room Air Room Air Lab Data Lab Results 11/11/25 22:31: WBC 7.6, RBC 3.19 L, Hgb 9.6 L, Hct 29.2 L, MCV 91.5, MCH 30.1, MCHC 32.9, RDW 16.9, Plt Count 74 L, MPV 11.3 H, Neut % (Auto) 69.8, Lymph % (Auto) 12.8, [place] % (Auto) 15.0 H, Eos % (Auto) 1.3, Baso % (Auto) 0.4, Neut # (Auto) 5.3, Lymph # (Auto) 1.0, [place] # (Auto) 1.1 H, Eos # (Auto) 0.1, Baso # (Auto) 0.0, PT 15.1 H, INR 1.39 H, D-Dimer 4.32 H, Sodium 128 L, Potassium 3.8, Chloride 94 L, Carbon Dioxide 25, Anion Gap 12.8, BUN 75 H, Creatinine 3.90 H, Estimated Creat Clear 18, Estimated GFR 12 L*, Est GFR ( Amer) 14 L*, Glucose 153 H, Calcium 8.9, Phosphorus 5.2 H, Magnesium 2.7 H, Total Bilirubin 2.2 H, AST 47 H, ALT 32, Alkaline Phosphatase 255 H, Troponin I 0.02, Total Protein 6.7, Albumin 3.7, Globulin 3.0, Albumin/Globulin Ratio 1.2 12/23/25 01:20: Sodium 127 L, Potassium 4.1, Chloride 94 L, Carbon Dioxide 24, Anion Gap 13.1, BUN 76 H, Creatinine 3.40 H, Estimated Creat Clear 21, Estimated GFR 14 L*, Est GFR ( Amer) 17 L* D, Glucose 123 H, Calcium 8.2 L 11/12/25 02:10: Troponin I 0.02 11/11/25 22:31 11/12/25 01:20 Orders (Tests/Meds): ED MEDICATIONS Discontinued Medications Generic Name Dose Route Start Last Admin Trade Name Freq PRN Reason Stop Dose Admin Albumin Human 12.5 gm in 50 mls @ 100 mls/hr 11/11/25 23:23 11/12/25 00:11 Albumin 25% (12.5gm) Soln 50ml Bag IV 11/11/25 23:52 Infused ONCE ONE Infusion Lactated Ringer's 500 mls @ 250 mls/hr 11/11/25 23:23 11/12/25 02:23 Lactated Ringer's 500ml IV 11/12/25 01:22 Infused .Q2H ONE Infusion Iopamidol 70 ml 11/12/25 00:27 11/12/25 00:28 Iopamidol-370 (76%);100ml Bottle IV 11/12/25 00:28 70 ml ONCE ONE Administration Sodium Chloride 50 ml 11/12/25 00:27 11/12/25 00:29 0.9 % Sodium Chloride 50 Ml Vial IV 11/12/25 00:28 50 ml ONCE ONE Administration Sodium Chloride 10 ml 11/12/25 00:27 11/12/25 00:29 Sodium Chloride 0.9% 10ml Syr (Rad Only) IV 11/12/25 00:28 10 ml ONCE ONE Administration ORDERS Category Date Time Status CT angio chest PE protocol Stat Cat Scan 11/12/25 00:05 Completed XR chest 2V Stat Exams 11/11/25 23:02 Completed BMP [Basic Metabolic Panel] Stat Lab 11/12/25 01:20 Completed Complete Blood Count Auto Diff Stat Lab 11/11/25 22:31 Completed Comprehensive Metabolic Panel Stat Lab 11/11/25 22:31 Completed D-Dimer Stat Lab 11/11/25 22:31 Completed Magnesium Stat Lab 11/11/25 22:31 Completed Phosphorous Stat Lab 11/11/25 22:31 Completed Prothrombin Time INR Stat Lab 11/11/25 22:31 Completed Troponin I Q3H Lab 11/12/25 02:10 Completed Troponin I Q3H Lab 11/12/25 05:15 Ordered Troponin I Stat Lab 11/11/25 22:31 Completed Medical Decision Narrative: In summary, this 65-year-old female with comorbidities described in the HPI presents to the emergency department today with sensation of heart racing and reported heart rate of up to 170s with symptoms starting approximately 12 hours prior to arrival. Currently patient is only complaining of a continued sensation of palpitations though she has normal heart rate and rhythm on exam, she also reports some dizziness (lightheadedness) when standing. On initial evaluation patient is hemodynamically stable, afebrile, GCS 15, evidence of ascites and fluid wave on abdominal exam but no tenderness, cardiopulmonary exam otherwise benign, mild jaundice. Differential diagnosis includes but is not limited to intravascular volume depletion, kidney dysfunction, hyperbilirubinemia, acute decompensated cirrhosis, I considered arrhythmia, ACS, PE, among others. Based on these concerns, I ordered hematologic and serum labs, cardiac workup, chest x-ray. ECG personally interpreted demonstrates sinus rhythm, rate 93, borderline left axis deviation, normal ID and QTc, no STEMI. Orthostatics demonstrate Hypotension from sitting to standing with associated increase in heart rate of 7 bpm. Given patient's symptoms, history of advanced cirrhosis, and concerns for orthostatic hypotension, I am administering albumin to hopefully pull fluid intravascularly and small slow fluid bolus. Labs personally reviewed demonstrate no leukocytosis, anemia improved from prior, platelets 74 which is low but improved from previous, PT/INR elevated but slightly improved compared to 1 month ago, CMP with hyponatremia sodium 128, worsening kidney function creatinine 3.9 up from 3.51-month ago, total bilirubin 2.2, stable from prior, initial troponin 0.02, repeat troponin pending. Patient's D-dimer resulted significantly elevated at 4.32. With her history of tachycardia, orthostatic hypotension, but also being coagulopathic secondary to cirrhosis and having severe kidney dysfunction, I had extensive discussion with her about risks and benefits of CT angiography with contrast. We discussed the risk of contrast-induced nephropathy leading to further kidney dysfunction and possibly dialysis and she has refused dialysis in the past, but we also discussed the possibility of missing a PE which could be life-threatening especially with significantly elevated D-dimer and troponin that is not undetectable at this time. We did discuss the possibility of starting empiric anticoagulation but I believe there is significant risk with this since she is already coagulopathic secondary to advanced cirrhosis. We also discussed the possibility of the D-dimer being falsely elevated secondary to bruising on the abdomen due to previous paracentesis. She asked for time to think about this. She and her family at bedside discussed at length. Patient is alert, oriented, has capacity to make decisions at this time. Ultimately she decided to proceed with CTA PE with IV contrast understanding the risk of contrast-induced nephropathy. PARK Gan at bedside for this conversation. XR personally interpreted demonstrates small left pleural effusion with blunting of left costophrenic angle, atelectasis versus atypical infiltrate into the right lung base. See radiology read for final interpretation CT imaging personally interpreted demonstrate no large PE, no pneumonia, see radiology read for final interpretation which demonstrates chronic findings. I ordered repeat BMP to further evaluate patient's kidney function to see if she had had any acute change since receiving albumin and fluids. Her creatinine is slightly improved, but with her persistent hyponatremia her MELD is still 30. She still has not produced urine in the ER. Ultimately on reassessment patient's vitals are improved but she states she still feels a sensation of palpitations in her chest though she has no arrhythmia on the monitor. She states she feels generally unwell still but is not having any focal symptoms otherwise. We discussed at length her already being on palliative care and the option of going back to her facility for continued standard management since there is not a specific new acute problem though her MELD has progressively worsened. We discussed that this is likely progression of her underlying disease which she understands. She states she would prefer to continue hospital management in an attempt to feel better. Since her next paracentesis is 1 day from now she would prefer to go to for continued management which I believe is very reasonable especially with her advanced liver and kidney failure. I reached out to and spoke with Dr. Hadley and the transfer center. He graciously accepted this patient for ER to ER transfer to [facility]. Patient waited in the ER for transportation to become available. She remains hemodynamically stable and clinically overall unchanged. She was reassessed immediately prior to transfer and continues being hemodynamically stable, afebrile, GCS 15, protecting her airway. She is appropriate for transfer at this time and was transferred in stable condition. Critical Care Critical Care Time Critical Care Time: No
[2025-11-11 23:10] LABS: Albumin Level 3.7 g/dl (3.5-5.0); Chloride 94 mmol/L (98-107); Potassium 3.8 mmoL/L (3.5-5.1); Sodium 128 mmol/L (136-145)
[2025-11-11 23:13] LABS: Alanine Aminotransferase 32 U/L (12-78); Albumin/Globulin Ratio 1.2 (1.1-1.8); Alkaline Phosphatase 255 U/L (38-126); Anion Gap 12.8 mEq/L (5-15); Aspartate Amino Transferase 47 U/L (14-36); Bilirubin,Total 2.2 mg/dl (0.2-1.3); Blood Urea Nitrogen 75 mg/dl (7-17); Carbon Dioxide 25 mmol/L (22.0-30.0); Creatinine Clearance Estimated 18 mL/min (50-200); Creatinine,Serum 3.90 mg/dl (0.52-1.04); Estimated Glomerular Filt Rate 12 ml/min (>60); GFR (African American) 14 ML/MIN (>60); Globulin 3.0 g/dL (1.3-3.2); Hematocrit 29.2 % (37.0-47.0); Hemoglobin 9.6 g/dL (12.2-16.2); Immature Granulocytes % 0.7 %; Mean Corpuscular HGB Conc 32.9 g/dL (31.8-35.4); Mean Corpuscular Hemoglobin 30.1 pg (27.0-31.2); Mean Corpuscular Volume 91.5 fl (81-99); Nucleated Red Blood Cells % 0 %; Platelet Count 74 K/mm3 (142-424); Red Blood Count 3.19 M/mm3 (4.20-5.40); Red Cell Distribution Width-SD 56.9 fL; Total Protein,Serum 6.7 g/dl (6.3-8.2); White Blood Count 7.6 K/mm3 (4.8-10.8)
[2025-11-11 23:14] LABS: Calcium 8.9 mg/dl (8.4-10.2); Glucose 153 mg/dl (74-100)
[2025-11-11 23:18] LABS: INR 1.39 (0.9-1.1); Prothrombin Time 15.1 seconds (10.1-12.5)
[2025-11-11 23:25] LABS: Troponin I 0.02 ng/ml (0.00-0.034)
[2025-11-11 23:30] LABS: D-Dimer 4.32 ug/mL (0.0-0.5)
[2025-11-11] MEDS: ALBUMIN HUMAN 12.5 GM/50 ML BAG IV (23:33)
[2025-11-11] MEDS: RINGERS SOLUTION,LACTATED 500 ML 250 ML IV (23:36)
[2025-11-11 23:41] LABS: Magnesium 2.7 mg/dl (1.6-2.3); Phosphorous 5.2 mg/dl (2.5-4.5)
[2025-11-11 23:46] VITALS: BP 113/60; BP 121/79; BP 134/73; PULSE 102; PULSE 95; PULSE 97
--- NOTE | 2025-11-12 00:05 | CT_ITS ---
PROCEDURE INFORMATION: Exam: CTA Chest With Contrast Exam date and time: 11/12/2025 12:21 AM Age: 65 years old Clinical indication: Other: Tachy, lightheaded; Additional info: Tachy, lightheaded, dimer 4.3 TECHNIQUE: Imaging protocol: Computed tomographic angiography of the chest with contrast. Exam focused on the arteries. 3D rendering (Not supervised by radiologist): MIP and/or 3D reconstructed images were created by the technologist. Radiation optimization: All CT scans at this facility use at least one of these dose optimization techniques: automated exposure control; mA and/or kV adjustment per patient size (includes targeted exams where dose is matched to clinical indication); or iterative reconstruction. Contrast material: ISOVUE; Contrast volume: 70 ml; Contrast route: INTRAVENOUS (IV); COMPARISON: CT CHEST WO CON 10/10/2025 12:05 PM FINDINGS: Pulmonary arteries: Top-normal main pulmonary artery. No pulmonary emboli. Aorta: Unremarkable. No aortic aneurysm. No aortic dissection. Thyroid: There is a 10 mm nodule in the lower pole right thyroid lobe. No follow-up is necessary. Lungs: There are changes of posterior right lung base. Pleural spaces: There is a trace right pleural effusion. Heart: Unremarkable. No cardiomegaly. No pericardial effusion. Lymph nodes: Unremarkable. No enlarged lymph nodes. Diaphragm: There is a fluid-filled posterior right diaphragmatic hernia. Liver: The liver has a cirrhotic morphology. Intraperitoneal space: There is moderate ascites within the upper abdomen. Bones/joints: There are moderate degenerative changes of the spine. No acute fracture. Soft tissues: Unremarkable. IMPRESSION: 1. No pulmonary embolus. 2. Trace right pleural effusion and posterior right lung base atelectasis. Similar findings are noted on the prior study. 3. Findings within the upper abdomen consistent with cirrhosis. 4. Fluid-filled posterior right diaphragmatic hernia. COMMENTS: Consistent with the [employer]'s Incidental Findings Committee white paper (J Am Nellie Radiol 2015): In patients aged 35 years and older with an incidental thyroid nodule equal to or greater than 1.[address], MRI or extrathyroidal US, further evaluation with dedicated thyroid US is recommended for patients with normal life expectancy and without comorbidities. For smaller nodules without suspicious features, no further evaluation or follow up is recommended.
[2025-11-12] MEDS: IOPAMIDOL-370 (76%);100ML BOTTLE 70 ML IV (00:28)
[2025-11-12] MEDS: 0.9 % SODIUM CHLORIDE 50 ML VIAL IV (00:29)
[2025-11-12] MEDS: SODIUM CHLORIDE 0.9% 10ML SYR (RAD ONLY) 10 ML IV (00:29)
[2025-11-12 01:37] LABS: Anion Gap 13.1 mEq/L (5-15); Blood Urea Nitrogen 76 mg/dl (7-17); Calcium 8.2 mg/dl (8.4-10.2); Carbon Dioxide 24 mmol/L (22.0-30.0); Chloride 94 mmol/L (98-107); Creatinine Clearance Estimated 21 mL/min (50-200); Creatinine,Serum 3.40 mg/dl (0.52-1.04); Estimated Glomerular Filt Rate 14 ml/min (>60); GFR (African American) 17 ML/MIN (>60); Glucose 123 mg/dl (74-100); Potassium 4.1 mmoL/L (3.5-5.1); Sodium 127 mmol/L (136-145)
[2025-11-12 02:47] LABS: Troponin I 0.02 ng/ml (0.00-0.034)
[2025-11-12 05:08] VITALS: BP 124/77; PULSE 90; RESP 16; TEMP 36.6; O2SAT 96
== END 2025-11-12 05:10 | disposition short-term general hospital (02) ==
PROVIDERS: Emergency Provider Emergency Medicine; PCP Internal Medicine Adolescent Medicine
DX: R00.2 Palpitations (principal); E87.1 Hypo-osmolality and hyponatremia; N18.9 Chronic kidney disease, unspecified; R79.1 Abnormal coagulation profile; R53.81 Other malaise; K72.90 Hepatic failure, unspecified without coma; K74.60 Unspecified cirrhosis of liver
CPT/HCPCS: 71046; 71275; 80048; 80053; 83735; 84100; 84484; 85025; 85378; 85610; 93005; 96361; 96365; 99285; J7120; P9047; Q9967